=== PATIENT | male | born 1955 | race Caucasian/White ===

== ENCOUNTER 2019-09-18 07:36 | Outpatient (RCR) | payer MEDICARE, SELFPAY ==
[2019-06-29 10:01] LABS: INR 3.6
[2019-07-12 11:17] LABS: INR 3.6; Prothrombin Time 37.7 Seconds (9.64-11.0)
[2019-07-25 11:32] LABS: INR 3.4
[2019-08-04 11:49] LABS: INR 3.5; Prothrombin Time 36.3 Seconds (9.64-11.0)
[2019-08-14 08:51] LABS: INR 3.5; Prothrombin Time 36.7 Seconds (9.64-11.0)
== END 2019-09-27 23:59 | disposition home or self-care (01) ==
LOC: CHSLAB 07:36
PROVIDERS: PCP Family Medicine; Visit Provider Family Medicine
DX: Z79.01 Long term (current) use of anticoagulants (principal)
CPT/HCPCS: 36415; 71260; 80048; 80053; 80061; 82043; 82565; 83036; 84153; 85610; 94060; 94726; 94729; Q9965

== ENCOUNTER 2019-12-11 10:05 | Outpatient (CLI) | payer MEDICARE, SELFPAY ==
[2019-12-11 10:33] LABS: Hemoglobin A1C 7.1 % (<5.7)
[2019-12-11 10:37] LABS: INR 4.7; Prothrombin Time 46.2 Seconds (9.64-11.0)
[2019-12-11 10:59] LABS: Anion Gap 14.2 mmol/L (7-16); Blood Urea Nitrogen 42 mg/dL (7-18); Calcium 9.6 mg/dL (8.5-10.1); Carbon Dioxide 29 mmol/L (21-32); Chloride 102 mmol/L (98-108); Estimated Glomerular Filt Rate 40; Glucose 125 mg/dL (70-99); Osmolality Calculated 303 mOsm/kg (285-295); Potassium 4.2 mmol/L (3.5-5.1); Sodium 141 mmol/L (136-145)
== END 2019-12-11 10:06 | disposition home or self-care (01) ==
LOC: CHSLAB 10:08
PROVIDERS: PCP Family Medicine; Visit Provider Physician Assistant
DX: I48.20 Chronic atrial fibrillation, unspecified (principal); E11.9 Type 2 diabetes mellitus without complications
CPT/HCPCS: 36415; 80048; 83036; 85610

== ENCOUNTER 2019-12-27 08:50 | Outpatient (RCR) | payer MEDICARE, SELFPAY ==
[2019-10-04 12:17] LABS: INR 3.4
[2019-11-07 09:46] LABS: INR 2.9; Prothrombin Time 28.6 Seconds (9.64-11.0)
[2019-12-14 10:50] LABS: INR 3.8; Prothrombin Time 37.6 Seconds (9.64-11.0)
[2019-12-18 10:08] LABS: INR 2.7; Prothrombin Time 27.4 Seconds (9.64-11.0)
[2019-12-27 09:12] LABS: INR 3.5; Prothrombin Time 34.4 Seconds (9.64-11.0)
== END 2020-01-02 23:59 | disposition home or self-care (01) ==
LOC: CHSLAB 08:50
PROVIDERS: PCP Family Medicine; Visit Provider Family Medicine
DX: I48.20 Chronic atrial fibrillation, unspecified (principal)
CPT/HCPCS: 36415; 85610

== ENCOUNTER 2020-02-06 09:53 | Outpatient (RCR) | payer MEDICARE, OTHER, SELFPAY ==
--- NOTE | 2020-02-06 11:03 | PTOPEVAL ---
Thank you for referring Mendez Lay to [facility]. Please review, sign, date and return this plan of care RACHELE. I agree with and certify that the following plan of care is medically necessary. Referring Physician Date Admitting Provider: Attending Provider: PHYSICIAN NOT ON STAFF Referring Provider: *PT Outpatient Evaluation Start: 02/06/20 10:03 Freq: Status: Active Protocol: Document 02/06/20 10:05 [facility] (Rec: 02/06/20 10:42 [facility] [id number]) Therapy Assessment Status Assessment Status Assessment Status Evaluation Evaluation Information Problem Diagnosis generalized weakness of the LE 's. Onset 01/31/20 Additional Evaluation Detail LEFS = 83% functionally declined Subjective Information patient reports he struggling Query Text:As Reported By Patient/ more and more daily with his Family ADL's. he reports he has noticed increased difficulty getting up from a chair, walking, and going up and down steps. he reports if there is no rail on the steps he is unabel to go up them. he reports he did fall about 2 weeks ago. he reports he tripped over an object on the floor. he reports he was unable to pull himself back up from the floor and had to call for help. Prior Level of Function Comments Additional Prior Level of Function patient reports he has had Comments weakness for years, but has noticed increased symptoms in the past year. 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 he reports he is also having some pain in the neck (about 2 months). he reports he is sleeping in a chair due to difficulty breathing. Pain Assessment Timing of Pain Assessment Timing of Pain Assessment Assessment Pain Scale Pain Scale Used Numeric (1 - 10) Self Report Pain Assessment Neck Reported Pain Level 4 Lowest Pain Intensity 2 Greatest Pain Intensity 9 Pain Aggravating Factors Changing Position Pain Score Pain Score
--- NOTE | 2020-03-06 08:52 | PCPTNOTE ---
patient cancelled appt today. PRISCILLA
== END 2020-03-15 10:47 | disposition home or self-care (01) ==
LOC: CHSPT 09:53
PROVIDERS: PCP Family Medicine; Visit Provider Family Medicine
DX: R29.898 Other symptoms and signs involving the musculoskeletal system (principal)
CPT/HCPCS: 36415; 85610; 97014; 97110; 97112; 97161; 97530; G0283

== ENCOUNTER 2020-03-26 09:14 | Outpatient (RCR) | payer MEDICARE, SELFPAY ==
[2020-01-05 09:30] LABS: INR 3.7; Prothrombin Time 36.1 Seconds (9.64-11.0)
[2020-01-11 09:33] LABS: INR 3.4; Prothrombin Time 33.3 Seconds (9.64-11.0)
[2020-01-18 09:35] LABS: INR 3.6; Prothrombin Time 35.4 Seconds (9.64-11.0)
[2020-01-23 09:26] LABS: INR 3.4; Prothrombin Time 33.5 Seconds (9.64-11.0)
[2020-02-06 09:35] LABS: INR 4.4; Prothrombin Time 43.2 Seconds (9.64-11.0)
[2020-02-12 09:08] LABS: INR 2.2; Prothrombin Time 21.8 Seconds (9.64-11.0)
[2020-02-19 09:23] LABS: INR 2.8; Prothrombin Time 28.3 Seconds (9.64-11.0)
[2020-02-27 09:34] LABS: INR 2.8; Prothrombin Time 27.8 Seconds (9.64-11.0)
[2020-03-08 09:05] LABS: INR 1.1; Prothrombin Time 11.2 Seconds (9.64-11.0)
[2020-03-11 08:39] LABS: INR 1.7; Prothrombin Time 17.4 Seconds (9.64-11.0)
[2020-03-14 10:40] LABS: INR 3.9; Prothrombin Time 38.7 Seconds (9.64-11.0)
[2020-03-19 08:47] LABS: INR 1.8; Prothrombin Time 17.9 Seconds (9.64-11.0)
[2020-03-26 09:33] LABS: INR 2.5; Prothrombin Time 25.4 Seconds (9.64-11.0)
== END 2020-04-04 23:59 | disposition home or self-care (01) ==
LOC: CHSLAB 09:14
PROVIDERS: PCP Family Medicine; Visit Provider Family Medicine
DX: I48.20 Chronic atrial fibrillation, unspecified (principal)
CPT/HCPCS: 36415; 85610

== ENCOUNTER 2020-06-04 12:04 | Outpatient (CLI) | payer MEDICARE, SELFPAY ==
[2020-06-04 12:24] LABS: Basophils Absolute Auto 0.04 K/mm3 (0.00-0.10); Basophils Percent Auto 0.4 % (0.0-1.0); Eosinophils Absolute Auto 0.39 K/mm3 (0.02-0.50); Eosinophils Percent Auto 3.7 % (1.0-6.0); Hematocrit 37.7 % (37.0-46.0); Hemoglobin 12.1 g/dL (12.4-15.3); Immature Granulocyte Absolute 0.04 K/mm3 (0.00-0.00); Immature Granulocyte Percent A 0.4 % (0.0-0.0); Lymphocytes Absolute Auto 1.38 K/mm3 (1.10-4.50); Lymphocytes Percent Auto 12.9 % (18.0-42.0); Mean Corpuscular HGB Conc 32.1 g/dL (32.0-36.0); Mean Corpuscular Hemoglobin 28.7 pg (27.0-31.0); Mean Corpuscular Volume 89.5 fL (78.0-102.0); Monocytes Absolute Auto 1.04 K/mm3 (0.10-0.90); Monocytes Percent Auto 9.7 % (2.0-11.0); Neutrophils Absolute Auto 7.8 K/mm3 (1.7-7.2); Neutrophils Percent Auto 72.9 % (50.0-70.0); Platelet Count Result 225 K/mm3 (150-420); Red Blood Count 4.21 M/mm3 (4.70-6.10); Red Cell Distribution Width 13.8 % (11.6-14.4); White Blood Count 10.7 K/mm3 (4.8-10.8)
[2020-06-04 12:45] LABS: Hemoglobin A1C 6.1 % (<5.7)
[2020-06-04 12:49] LABS: INR 1.6; Prothrombin Time 15.9 Seconds (9.64-11.0)
[2020-06-04 13:24] LABS: Erythrocyte Sedimentation Rate 44 mm/hr (0-20)
[2020-06-04 13:35] LABS: Alanine Aminotransferase 20 U/L (16-63); Alkaline Phosphatase 93 U/L (46-116); Anion Gap 8 mmol/L (8-16); Aspartate Amino Transferase 15 U/L (15-37); Bilirubin,Total 0.5 mg/dL (0.00-1.00); Blood Urea Nitrogen 37 mg/dL (7-18); CRP 0.9 mg/dL (0.0-0.9); Calcium 9.1 mg/dL (8.5-10.1); Carbon Dioxide 30 mmol/L (21-32); Chloride 99 mmol/L (98-108); Estimated Glomerular Filt Rate 37; Folic Acid 7.7 ng/mL (8.6->20); Glucose 117 mg/dL (70-99); Osmolality Calculated 293 mOsm/kg (285-295); Potassium 4.5 mmol/L (3.5-5.1); Sodium 137 mmol/L (136-145); Total Protein 7.9 g/dL (6.4-8.2); Vitamin B12 402 pg/mL (193-986)
[2020-06-04 14:07] LABS: Thyroid Stimulating Hormone Reflex 3.34 u/IU/mL (0.36-3.74)
[2020-06-08 04:33] LABS: Thyroglobulin 11.2 ng/mL (2.8-40.9); Thyroglobulin Antibodies <1 IU/mL (<=1); Thyroid Peroxidase Antibodies <1 IU/mL (<9)
== END 2020-06-04 12:05 | disposition home or self-care (01) ==
LOC: CHSLAB 12:07
PROVIDERS: PCP Family Medicine; Visit Provider Physician Assistant
DX: R53.83 Other fatigue (principal); E11.9 Type 2 diabetes mellitus without complications; I48.91 Unspecified atrial fibrillation
CPT/HCPCS: 36415; 80053; 82607; 82746; 83036; 84432; 84443; 85025; 85610; 85652; 86140; 86376; 86800

== ENCOUNTER 2020-07-03 14:53 | Observation (INO) | payer MEDICARE, OTHER, SELFPAY ==
--- NOTE | ~2020-07-03 | CT_ITS ---
EXAMINATION: CT brain wo con DATE: 07/03/2020 15:30 INDICATION: Confusion. TECHNIQUE: Computed tomography (CT) of the head was performed without intravenous contrast. The mA wa s adjusted according to patient size. Iterative reconstruction technique was employed. The dose-lengt h product was 605.33 mGy-cm. COMPARISON: Neck CT 01/17/2015 FINDINGS: There are scattered areas of low attenuation in the cerebral white matter. There is no intr acranial hemorrhage or acute infarction. 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 There is an old lacunar infarct in the nicholas. There is an old lacunar infarct in left t halamus. The ventricles are normal in size. The paranasal sinuses are clear. The orbits are normal. T he mastoid air cells are normal. There is cerumen in the external auditory canals. IMPRESSION: 1. Old lacunar infarcts in the nichloas and left thalamus. 2. Mild nonspecific cerebral white matter disease, which likely represents chronic small vessel ische albina disease. Reviewed, dictated and finalized at location B. E EVIDENCE TECHNICIAN IMPRESSION: 1. Old lacunar infarcts in the nicholas and left thalamus. 2. Mild nonspecific cerebral white matter disease, which likely represents cloth dyeing range tender hugo small vessel ischemic disease.
--- NOTE | ~2020-07-03 | XR_ITS ---
EXAMINATION: XR chest 1V portable DATE: 07/03/2020 15:30 INDICATION: Dyspnea. TECHNIQUE: A single frontal view of the chest was obtained. COMPARISON: Chest 2 views 07/10/2017, chest CT 09/18/2019 FINDINGS: The chest demonstrates clear lungs without pneumonia, pleural effusion, or pneumothorax. Th e heart size is normal. There are changes of aortic valve replacement. IMPRESSION: 1. No acute cardiopulmonary disease. Reviewed, dictated and finalized at location B. ONAL FLATBED TRUCK DRIVER
[2020-07-03 14:53] VITALS: BP 170/98; PULSE 102; RESP 16; TEMP 36.9; O2SAT 97
[2020-07-03 15:03] LABS: Glucose Point of Care 131 (65-105)
--- NOTE | 2020-07-03 15:07 | ECG_ITS ---
Measurements Intervals [place] Rate: 97 P: NV: 0 QRS: -23 QRSD: 138 T: 139 QT: 382 QTc: 485 Interpretive Statements ATRIAL FIBRILLATION VENTRICULAR PREMATURE COMPLEX LEFT BUNDLE BRANCH BLOCK ABNORMAL ECG Electronically Signed On 07-03-2020 17:20:53 [employer] by Adryan Tong D.O.
[2020-07-03 15:10] VITALS: BP 170/98; PULSE 102; RESP 18; O2SAT 97
[2020-07-03 15:26] LABS: Basophils Absolute Auto 0.05 K/mm3 (0.00-0.10); Basophils Percent Auto 0.5 % (0.0-1.0); Eosinophils Percent Auto 3.8 % (1.0-6.0); Hematocrit 35.8 % (37.0-46.0); Hemoglobin 11.4 g/dL (12.4-15.3); Immature Granulocyte Absolute 0.06 K/mm3 (0.00-0.00); Immature Granulocyte Percent A 0.6 % (0.0-0.0); Lymphocytes Absolute Auto 1.75 K/mm3 (1.10-4.50); Lymphocytes Percent Auto 16.6 % (18.0-42.0); Mean Corpuscular HGB Conc 31.8 g/dL (32.0-36.0); Mean Corpuscular Hemoglobin 28.1 pg (27.0-31.0); Mean Corpuscular Volume 88.2 fL (78.0-102.0); Mean Platelet Volume 9.8 fl (8.7-11.0); Monocytes Absolute Auto 1.28 K/mm3 (0.10-0.90); Monocytes Percent Auto 12.2 % (2.0-11.0); Neutrophils Percent Auto 66.3 % (50.0-70.0); Platelet Count Result 222 K/mm3 (150-420); Red Blood Count 4.06 M/mm3 (4.70-6.10); Red Cell Distribution Width 14.1 % (11.6-14.4); White Blood Count 10.5 K/mm3 (4.8-10.8)
[2020-07-03 15:39] LABS: INR 1.3; Prothrombin Time 13.8 Seconds (9.64-11.0)
[2020-07-03 15:42] LABS: Alanine Aminotransferase 37 U/L (16-63); Albumin Level 3.5 g/dL (3.4-5.0); Alkaline Phosphatase 95 U/L (46-116); Anion Gap 8 mmol/L (8-16); Aspartate Amino Transferase 16 U/L (15-37); Bilirubin,Total 0.7 mg/dL (0.00-1.00); Blood Urea Nitrogen 29 mg/dL (7-18); Calcium 9.3 mg/dL (8.5-10.1); Carbon Dioxide 28 mmol/L (21-32); Chloride 98 mmol/L (98-108); Estimated Glomerular Filt Rate 41; Glucose 145 mg/dL (70-99); Osmolality Calculated 286 mOsm/kg (285-295); Sodium 134 mmol/L (136-145)
[2020-07-03 15:44] LABS: Troponin I < 0.02 ng/mL (0.00-0.056)
[2020-07-03 15:45] LABS: BNP 35.1 pg/mL (0-100)
[2020-07-03 15:46] LABS: Magnesium 2.1 mg/dL (1.8-2.4)
--- NOTE | 2020-07-03 15:54 | PC.NURSE ---
PT STATES HE WAS INSTRUCTED TO STOP TAKING WARFARIN ON 07/01 IN PREPERATION FOR CARDIAC CATHERIZATION SCHEDULED FOR 07/05. ERP INFORMED.
--- NOTE | 2020-07-03 16:06 | ED.AMS ---
HPI - Altered Mental Status General Chief Complaint: Altered Mental Status Stated Complaint: hard to talk, confusion Time Seen by Provider: 07/03/20 14:55 Source: patient and family Mode of arrival: ambulatory Limitations: no limitations History of Present Illness HPI narrative: Daughter brings in patient who had slurred speech when she spoke to him about 1pm. She got to his house at about 1:30pm, and brought him in to be evaluated for a change in mental status. Severity: mild Consistency of symptoms: constant Associated symptoms: denies other symptoms Related Data Home Medications Medication Instructions Recorded Confirmed albuterol sulfate [Ventolin HFA] 2 puff INHALATION Q4-5H PRN 07/03/20 07/03/20 allopurinol 300 mg PO DAILY 07/03/20 07/03/20 amlodipine 2.5 mg PO DAILY 07/03/20 07/03/20 aspirin [Adult Low Dose Aspirin] 81 mg PO DAILY 07/03/20 07/03/20 atorvastatin 80 mg PO HS 07/03/20 07/03/20 carvedilol 12.5 mg PO DAILY 07/03/20 07/03/20 fluticasone propionate 2 spray INTRANASAL DAILY 07/03/20 07/03/20 yslhnnobzzl-eeylmemdq-hicadvqe 1 ea INHALATION DAILY 07/03/20 07/03/20 [Trelegy Ellipta] furosemide 80 mg PO BID 07/03/20 07/03/20 gabapentin 100 mg PO DAILY 07/03/20 07/03/20 gabapentin 300 mg PO HS 07/03/20 07/03/20 glipizide 5 mg PO DAILY 07/03/20 07/03/20 hydrocodone-acetaminophen 1 tablet PO BID PRN 07/03/20 07/03/20 ipratropium-albuterol 3 ml INHALATION QID PRN 07/03/20 07/03/20 losartan 50 mg PO DAILY 07/03/20 07/03/20 melatonin 10 mg PO HS PRN 07/03/20 07/03/20 metformin 500 mg PO BID 07/03/20 07/03/20 pantoprazole 40 mg PO DAILY 07/03/20 07/03/20 potassium chloride 40 meq PO DAILY 07/03/20 07/03/20 sertraline 150 mg PO DAILY 07/03/20 07/03/20 spironolactone 25 mg PO DAILY 07/03/20 07/03/20 trazodone 200 mg PO HS 07/03/20 07/03/20 triamcinolone acetonide 1 applic TOPICAL BID 07/03/20 07/03/20 warfarin 2 mg PO DAILY 07/03/20 07/03/20 warfarin 5 mg PO DAILY 07/03/20 07/03/20 Allergies Allergy/AdvReac Type Severity Reaction Status Date / Time No Known Allergies Allergy Verified 07/03/20 15:39 Review of Systems Review of Systems: Narrative: No weakness, no trouble swallowing, he has chronic mild weakness in legs which appears unchanged. He has had speech which has not been perfectly clear and which at times has not made much sense. Constitutional: Constitutional: Reports no additional constitutional complaints Eyes: Eyes: Reports no additional eye complaints ENT: Reports system reviewed and no additional complaints, except as documented Cardiovascular: Cardiovascular: Reports no additional cardiovascular complaints Respiratory: Respiratory: Reports no additional respiratory complaints Gastrointestinal: Gastrointestinal: Reports no additional gastrointestinal complaints Genitourinary: Genitourinary: Reports no additional male genitourinary complaints Musculoskeletal: Musculoskeletal: Reports no additional musculoskeletal complaints Integumentary/Breasts: Skin/Breast: Reports system reviewed and no additional complaints, except as docu Neurologic: Reports system reviewed and no additional complaints, except as documented Psychiatric: Psychiatric: Reports no additional psychiatric complaints Endocrine: Endocrine: Reports no additional endocrine complaints Hematologic/Lymphatic: Hematologic/Lymphatic: Reports no additional hematologic/lymphatic complaints Allergic/Immunologic: Allergic/Immunologic: Reports no additional allergic/immunologic complaints PMFSH Past Medical History Medical History Afib CAD (coronary artery disease) COPD (chronic obstructive pulmonary disease) Depression Diabetic neuropathy Gout Hyperlipidemia Surgical History Surgical History Cardiac catheterization as the cause of abnormal reaction of the patient, or of later complication, without mention of misadventure at the
--- NOTE | 2020-07-03 16:28 | PC.NURSE ---
SKYLAR KEY, DR. STINSON, CONTACTED AT THIS TIME FOR CONSULTATION
[2020-07-03 16:30] LABS: Erythrocyte Sedimentation Rate 50 mm/hr (0-20)
--- NOTE | 2020-07-03 17:22 | PC.NURSE ---
1710, DR. STINSON CALLED BACK TO ED. RN TRANSFERRED CALL TO ERP DR. RAPP.
--- NOTE | 2020-07-03 17:23 | PC.NURSE ---
1723 PT TO BE TRANSFERRED TO 2ND FLOOR AN OBSERVATION PATIENT. YUNI HARVEY CONTACTED AND ROOM 207 PROVIDED. REGISTRATION NOTIFIED.
--- NOTE | 2020-07-03 17:24 | PC.NURSE ---
RN ENTERED ROOM 2 TO INFORM PT OF OBS ROOM NUMBER. PT IS ON THE PHONE SPEAKING WITH A FAMILY MEMBER, RN NOTICED THAT PATIENT SAID HE WAS IN [facility] AND COULD NOT REMEMBER HIS DAUGHTERS NAME. ERP INFORMED.
[2020-07-03 18:00] VITALS: BP 148/97; PULSE 87; RESP 20; O2SAT 95
[2020-07-03 18:05] VITALS: BP 174/84; PULSE 84; RESP 18; TEMP 36.7; O2SAT 97
[2020-07-03] MEDS: WARFARIN (*PBKC) 2 MG TABLET PO (18:22)
[2020-07-03] MEDS: WARFARIN (*PBKC) 5 MG TABLET PO (18:22)
[2020-07-03] MEDS: ENOXAPARIN 100 MG/ML SYRINGE SUB-Q (19:15)
[2020-07-03] MEDS: ATORVASTATIN 40 MG TABLET 80 MG PO (21:38)
[2020-07-03] MEDS: HYDROcodone/acetaminophen (*CRX) 7.5-325 MG TABLET 1 TAB PO (21:38)
[2020-07-03] MEDS: MELATONIN 5 MG TABLET 10 MG PO (21:38)
[2020-07-03] MEDS: GABAPENTIN 300 MG CAPSULE PO (21:38)
[2020-07-03] MEDS: traZODone HCL 50 MG TABLET 200 MG PO (21:58)
[2020-07-03 22:46] LABS: Add Urine Microscopic? NO; Appearance Urine Clear (Clear); Bilirubin Urine Negative (Negative); Blood Urine Negative (Negative); Color Urine Yellow (Yellow); Glucose Urine UA Negative (Negative); Ketones Urine Negative (Negative); Leukocyte Esterase Ur Negative (Negative); Nitrate Urine Negative (Negative); Protein Urine Negative (Negative); Urobilinogen Urine 0.2 mg/dL (0.2-1.0); pH Urine 6.5 (5.0-8.0)
--- NOTE | 2020-07-03 22:56 | PC.NURSE ---
1800 here from with c/o not able to get words out , he is upset that he can speak clearly to get words out, they do not fit what he is saying or they sound jumbled. hand computer information systems instructor are equal and gait steady. alex eyes are perrila. lungs cta. a fib on tele. oriented to room and call light use. abd sound and bs present. no pedal edema. anna simental 1929 daughter here to drop off personal items. claims father speech seems more jumbled and harder for him to get thoughts exspressed. patient is upset with self. on floor and talk with them. they both are ok in remaining here at this time. gait remains steady. no neuro changes. anna simental 2129 remains up and down in room. gait steady. stand by assist. able to carry on conversation with longer span between word salad. still upset that words are to come at times. no dior changes. c/o of head ache and prn pain meds given anna simental
[2020-07-04] VITALS: BP 142/89; PULSE 68; PULSE 70; RESP 16; TEMP 36.3; O2SAT 95
--- NOTE | 2020-07-04 00:40 | PC.NURSE ---
Patient states that he is unable to sleep. He is ambulating around room, his gait is steady. He asked for Trazodone to help him sleep, senior medical writer explained to him that he had already had it with HS medications. Patient is reporting that he still feels like he is having difficulty with expressing himself verbally. At this time his speech is clear and he seems to converse easily with senior medical writer.
[2020-07-04 04:00] VITALS: BP 135/67; PULSE 56; PULSE 63; RESP 18; TEMP 36.2; O2SAT 95
[2020-07-04 05:43] LABS: Basophils Absolute Auto 0.04 K/mm3 (0.00-0.10); Basophils Percent Auto 0.4 % (0.0-1.0); Eosinophils Absolute Auto 0.49 K/mm3 (0.02-0.50); Eosinophils Percent Auto 5.5 % (1.0-6.0); Hematocrit 34.1 % (37.0-46.0); Hemoglobin 10.6 g/dL (12.4-15.3); Immature Granulocyte Absolute 0.03 K/mm3 (0.00-0.00); Immature Granulocyte Percent A 0.3 % (0.0-0.0); Lymphocytes Absolute Auto 2.09 K/mm3 (1.10-4.50); Lymphocytes Percent Auto 23.3 % (18.0-42.0); Mean Corpuscular HGB Conc 31.1 g/dL (32.0-36.0); Mean Corpuscular Hemoglobin 27.8 pg (27.0-31.0); Mean Corpuscular Volume 89.5 fL (78.0-102.0); Mean Platelet Volume 9.6 fl (8.7-11.0); Monocytes Percent Auto 11.1 % (2.0-11.0); Neutrophils Absolute Auto 5.3 K/mm3 (1.7-7.2); Neutrophils Percent Auto 59.4 % (50.0-70.0); Platelet Count Result 195 K/mm3 (150-420); Red Blood Count 3.81 M/mm3 (4.70-6.10)
[2020-07-04 07:30] VITALS: BP 150/88; PULSE 68; RESP 18; TEMP 36.1; O2SAT 97
--- NOTE | 2020-07-04 07:59 | PC.NURSE ---
Sitting on edge of bed for breakfast, feeling good, wants to go home
[2020-07-04] MEDS: FUROSEMIDE 40 MG TABLET 80 MG PO (09:12)
[2020-07-04] MEDS: SPIRONOLACTONE 25 MG TABLET PO (09:12)
[2020-07-04] MEDS: ENOXAPARIN 100 MG/ML SYRINGE SUB-Q (09:12)
[2020-07-04] MEDS: ASPIRIN 81 MG CHEWABLE TABLET PO (09:13)
[2020-07-04] MEDS: POTASSIUM CHLORIDE 20 MEQ TABLET 40 MEQ PO (09:13)
[2020-07-04] MEDS: GABAPENTIN 100 MG CAPSULE PO (09:13)
[2020-07-04 09:14] VITALS: PULSE 68
[2020-07-04] MEDS: PANTOPRAZOLE 40 MG TABLET PO (09:14)
[2020-07-04] MEDS: LOSARTAN POTASSIUM 50 MG TABLET PO (09:14)
[2020-07-04] MEDS: carvediloL 12.5 MG TABLET PO (09:14)
[2020-07-04] MEDS: SERTRALINE HCL 50 MG TABLET 150 MG PO (09:15)
[2020-07-04] MEDS: amLODIPine BESYLATE 5 MG TABLET 2.5 MG BY MOUTH (09:15)
--- NOTE | 2020-07-04 10:42 | PC.NURSE ---
Up in chair, showered and shaved self with direct observation, did well, denies needs, up independent to bathroom, voiding well
--- NOTE | 2020-07-04 11:44 | PM.SD ---
Same Day Admit/Disch: HPI History of Present Illness Chief complaint: TIA Narrative: Mendez Lay is a 64 year old male who presented to the hospital after having slurred speech. Patient states that he was having difficulty communicating not only verbally but also when he was trying to text daughter on the phone. Patient states that he did not feel weak on one side or the other. He does admit that he recalls looking in the distance with the sensation that he could not see everything out of his right eye. He states this has since resolved. Patient states he was off of his Coumadin for about 2 or 3 days as he was going to have a cardiac catheterization performed. I spoke with the daughter this morning and she stated that the patient sounded like he was back to his normal self. In patient states he feels like he is back to his normal self. [facility] Past Medical History Medical History Afib CAD (coronary artery disease) COPD (chronic obstructive pulmonary disease) Depression Diabetic neuropathy Gout Hyperlipidemia Surgical History Surgical History Cardiac catheterization as the cause of abnormal reaction of the patient, or of later complication, without mention of misadventure at the time of the procedure Social History Social History Smoking status: Former smoker Smoking end date: 09/02/1967 Drinks per week: 1 Substance use: former Substance use type: does not use Gender identity (if verbalized by the patient): Male Sexual Orientation (if Verbalized by the Patient): Straight or Heterosexual Spiritual care concerns: No Same Day Admit/Disch: Med Pre-admit Medications Home Medications Medication Instructions Recorded Confirmed Type albuterol sulfate [Ventolin HFA] 2 puff INHALATION Q4-5H PRN 07/03/20 07/03/20 History allopurinol 300 mg PO DAILY 07/03/20 07/03/20 History amlodipine 2.5 mg PO DAILY 07/03/20 07/03/20 History aspirin [Adult Low Dose Aspirin] 81 mg PO DAILY 07/03/20 07/03/20 History atorvastatin 80 mg PO HS 07/03/20 07/03/20 History carvedilol 12.5 mg PO DAILY 07/03/20 07/03/20 History fluticasone propionate 2 spray INTRANASAL DAILY 07/03/20 07/03/20 History ktzrpbxzcoz-cewcuwmcd-yirncdma 1 ea INHALATION DAILY 07/03/20 07/03/20 History [Trelegy Ellipta] furosemide 80 mg PO BID 07/03/20 07/03/20 History gabapentin 100 mg PO DAILY 07/03/20 07/03/20 History gabapentin 300 mg PO HS 07/03/20 07/03/20 History glipizide 5 mg PO DAILY 07/03/20 07/03/20 History hydrocodone-acetaminophen 1 tablet PO BID PRN 07/03/20 07/03/20 History ipratropium-albuterol 3 ml INHALATION QID PRN 07/03/20 07/03/20 History losartan 50 mg PO DAILY 07/03/20 07/03/20 History melatonin 10 mg PO HS PRN 07/03/20 07/03/20 History metformin 500 mg PO BID 07/03/20 07/03/20 History pantoprazole 40 mg PO DAILY 07/03/20 07/03/20 History potassium chloride 40 meq PO DAILY 07/03/20 07/03/20 History sertraline 150 mg PO DAILY 07/03/20 07/03/20 History spironolactone 25 mg PO DAILY 07/03/20 07/03/20 History trazodone 200 mg PO HS 07/03/20 07/03/20 History triamcinolone acetonide 1 applic TOPICAL BID 07/03/20 07/03/20 History warfarin 2 mg PO DAILY 07/03/20 07/03/20 History warfarin 5 mg PO DAILY 07/03/20 07/03/20 History enoxaparin [Lovenox] 100 mg SUBCUT Q12HR #5 vial 07/04/20 Rx Exam Const: General: cooperative, comfortable, no acute distress, alert, awake and Physically active Nutritional Appearance: overweight Eyes: General: appearance normal, both eyes and all related structures Visual Marroquin: normal visual marroquin by confrontation Alignment and Position: alignment normal Eyelids: eyelids normal Conjunctivae: conjunctivae normal Sclera: sclerae normal Pupils: Equal, round and reactive pupils present EOM: EOMs intact bilaterally Resp: Effort & Inspection: normal r
[2020-07-04 12:00] VITALS: PULSE 60; RESP 18; TEMP 36.1; O2SAT 95
--- NOTE | 2020-07-04 12:09 | PC.NURSE ---
Sitting in chair for lunch, denies needs. able to feed self, fine motor doing good today, no speech issues today, feeling much better,
--- NOTE | 2020-07-04 14:18 | PC.NURSE ---
Discharge to home via wheel chair, patient has someone to help with lovenox injections at home, no questions upon dc orders that were reviewed with daughter and patient, advised to call number provided for any questions once home, saline lock removed and to watch for signs of infection,
--- NOTE | 2020-07-05 14:22 | PC.NURSE ---
Pt states he received and understood his discharge instructions.
== END 2020-07-04 14:05 | disposition home or self-care (01) ==
LOC: CHSED 14:55 → CHS2ND 17:43
PROVIDERS: Admitting Provider Emergency Medicine; Emergency Provider Emergency Medicine; PCP Family Medicine; Visit Provider Emergency Medicine
DX: I97.89 Other postprocedural complications and disorders of the circulatory system, not elsewhere classified (principal); G45.9 Transient cerebral ischemic attack, unspecified; Z98.61 Coronary angioplasty status; I48.20 Chronic atrial fibrillation, unspecified; Z79.01 Long term (current) use of anticoagulants; I25.10 Atherosclerotic heart disease of native coronary artery without angina pectoris; F32.9 Major depressive disorder, single episode, unspecified; E11.40 Type 2 diabetes mellitus with diabetic neuropathy, unspecified; E78.5 Hyperlipidemia, unspecified; M10.9 Gout, unspecified; Z87.891 Personal history of nicotine dependence
CPT/HCPCS: 36415; 70450; 71045; 80053; 81003; 83735; 83880; 84484; 85025; 85610; 85652; 93005; 96372; 99285; A9270; G0378; J1650

== ENCOUNTER 2020-07-09 08:41 | Outpatient (RCR) | payer MEDICARE, SELFPAY ==
[2020-04-10 08:19] LABS: INR 2.2; Prothrombin Time 22.4 Seconds (9.64-11.0)
[2020-06-12 12:45] LABS: INR 2.3; Prothrombin Time 23.4 Seconds (9.64-11.0)
[2020-06-19 07:45] LABS: INR 2.2; Prothrombin Time 21.8 Seconds (9.64-11.0)
[2020-07-09 09:06] LABS: INR 2.1; Prothrombin Time 21.2 Seconds (9.64-11.0)
== END 2020-07-09 23:59 | disposition home or self-care (01) ==
LOC: CHSLAB 08:41
PROVIDERS: PCP Family Medicine; Visit Provider Family Medicine
DX: I48.91 Unspecified atrial fibrillation (principal)
CPT/HCPCS: 36415; 85610

== ENCOUNTER 2020-07-12 09:59 | Outpatient (RCR) | payer MEDICARE, OTHER, SELFPAY ==
--- NOTE | 2020-07-12 10:41 | PTOPEVAL ---
Thank you for referring Mendez Lay to [facility].? The patient is scheduled to be seen for therapy? ____x/week for ___ weeks. Please review, sign, date and return this plan of care RACHELE. I agree with and certify that the following plan of care is medically necessary. Referring Physician Date Admitting Provider: Attending Provider: Jacquie Martel, JANET Referring Provider: *PT Outpatient Evaluation Start: 07/12/20 10:02 Freq: Status: Active Protocol: Document 07/12/20 10:00 [facility] (Rec: 07/12/20 10:41 [facility] [id number]) Therapy Assessment Status Assessment Status Assessment Status Evaluation Outpatient Past Medical History Neurological History Hx Neurological Disorders No Significant History Cardiovascular History Hx Other Cardiac Disorders Yes Respiratory History Hx Respiratory Disorders No Significant History Gastrointestinal History Hx Gastrointestinal Disorders No Significant History Genitourinary History Hx Genitourinary Disorders No Significant History Musculoskeletal History Hx Musculoskeletal Disorders No Significant History Hematological History Hx Hematological Disorders No Significant History Endocrine History Hx Diabetes Yes HEENT History Hx HEENT Disorders No Significant History Integumentary History Hx Skin Disorders No Significant History Reproductive History Hx Reproductive Disorders No Significant History Psychosocial History Hx Psychiatric Disorders No Significant History Pain History History of Any Previous or Ongoing No Significant History Instance of Pain Anesthesia History Hx Anesthesia Reactions No Significant History Evaluation Information Problem Diagnosis acute CVA Onset 07/03/20 Subjective Information patient reports he had a TIA Query Text:As Reported By Patient/ on 07/03/20. he reports his Family daughter had noticed some deficits in his speech and a bit of weakness in his R arm compared to his L arm. he reports he is getting better. he reports he does not notice much difference in his legs. Prior Level of Function Comments Additional Prior Level of Function patient reports prior to his Comments CVa, he did have some issues with the bilateral shoulders. he reports he has tearing in the shoulders. Pain Assessment Timing of Pain Assessment Timing of Pain Assessment Assessment Pain Scale Pain Scale Used Numeric (1 - 10) Self Report Pain Assessment Right Shoulder(s) Reported Pain
--- NOTE | 2020-07-12 10:52 | PTOPEVAL ---
Thank you for referring Mendez Lay to [facility].? The patient is scheduled to be seen for therapy? ____x/week for ___ weeks. Please review, sign, date and return this plan of care RACHELE. I agree with and certify that the following plan of care is medically necessary. Referring Physician Date Admitting Provider: Attending Provider: Jacquie Martel, JANET Referring Provider: *PT Outpatient Evaluation Start: 07/12/20 10:02 Freq: Status: Active Protocol: Document 07/12/20 10:00 [facility] (Rec: 07/12/20 10:41 [facility] [id number]) Therapy Assessment Status Assessment Status Assessment Status Evaluation Outpatient Past Medical History Neurological History Hx Neurological Disorders No Significant History Cardiovascular History Hx Other Cardiac Disorders Yes Respiratory History Hx Respiratory Disorders No Significant History Gastrointestinal History Hx Gastrointestinal Disorders No Significant History Genitourinary History Hx Genitourinary Disorders No Significant History Musculoskeletal History Hx Musculoskeletal Disorders No Significant History Hematological History Hx Hematological Disorders No Significant History Endocrine History Hx Diabetes Yes HEENT History Hx HEENT Disorders No Significant History Integumentary History Hx Skin Disorders No Significant History Reproductive History Hx Reproductive Disorders No Significant History Psychosocial History Hx Psychiatric Disorders No Significant History Pain History History of Any Previous or Ongoing No Significant History Instance of Pain Anesthesia History Hx Anesthesia Reactions No Significant History Evaluation Information Problem Diagnosis acute CVA Onset 07/03/20 Subjective Information patient reports he had a TIA Query Text:As Reported By Patient/ on 07/03/20. he reports his Family daughter had noticed some deficits in his speech and a bit of weakness in his R arm compared to his L arm. he reports he is getting better. he reports he does not notice much difference in his legs. Prior Level of Function Comments Additional Prior Level of Function patient reports prior to his Comments CVa, he did have some issues with the bilateral shoulders. he reports he has tearing in the shoulders. Pain Assessment Timing of Pain Assessment Timing of Pain Assessment Assessment Pain Scale Pain Scale Used Numeric (1 - 10) Self Report Pain Assessment Right Shoulder(s) Reported Pain
--- NOTE | 2020-07-12 11:48 | OTOPEVAL ---
Thank you for referring Mendez Lay to [facility].? The patient is scheduled to be seen for therapy? ____x/week for ___ weeks. Please review, sign, date and return this plan of care RACHELE. I agree with and certify that the following plan of care is medically necessary. Referring Physician Date Admitting Provider: Attending Provider: Jacquie Martel, JANET Referring Provider: *OT Outpatient Evaluation Start: 07/12/20 10:43 Freq: Status: Active Protocol: Document 07/12/20 10:43 [facility] (Rec: 07/12/20 11:48 [facility] [id number]) Therapy Assessment Status Assessment Status Assessment Status Evaluation Outpatient Past Medical History Neurological History Hx Neurological Disorders No Significant History Cardiovascular History Hx Other Cardiac Disorders Yes Respiratory History Hx Respiratory Disorders No Significant History Gastrointestinal History Hx Gastrointestinal Disorders No Significant History Genitourinary History Hx Genitourinary Disorders No Significant History Musculoskeletal History Hx Musculoskeletal Disorders No Significant History Hematological History Hx Hematological Disorders No Significant History Endocrine History Hx Diabetes Yes HEENT History Hx HEENT Disorders No Significant History Integumentary History Hx Skin Disorders No Significant History Reproductive History Hx Reproductive Disorders No Significant History Psychosocial History Hx Psychiatric Disorders No Significant History Pain History History of Any Previous or Ongoing No Significant History Instance of Pain Anesthesia History Hx Anesthesia Reactions No Significant History Evaluation Information Problem Diagnosis weakness Onset 07/03/20 Cause CVA Subjective Information Patient arrives to OT and Query Text:As Reported By Patient/ reports that he had a mini- Family stroke (TIA) on 07/03/20 and stayed overnight at the hospital and then returned home. Patient reports increased fatigue and dizziness since the stroke as well as difficulty with speech and mild weakness in the right UE. Patient reports mild memory loss as well. Prior Level of Function Activity Level (Last 3 Months) Hand Dominance Right Activity of Daily Living Ability Independent Indoor/Home Mobility Independent Community Mobility Independent Stairs Ability Independent Functional Cognition (Planning, Shopping Independent
--- NOTE | 2020-07-12 11:52 | OTOPEVAL ---
Thank you for referring Mendez Lay to [facility] [place].? The patient is scheduled to be seen for therapy? ____x/week for ___ weeks. Please review, sign, date and return this plan of care RACHELE. I agree with and certify that the following plan of care is medically necessary. Referring Physician Date Admitting Provider: Attending Provider: Jacquie Martel, JANET Referring Provider: *OT Outpatient Evaluation Start: 07/12/20 10:43 Freq: Status: Active Protocol: Document 07/12/20 10:43 [facility] (Rec: 07/12/20 11:48 [facility] [id number]) Therapy Assessment Status Assessment Status Assessment Status Evaluation Outpatient Past Medical History Neurological History Hx Neurological Disorders No Significant History Cardiovascular History Hx Other Cardiac Disorders Yes Respiratory History Hx Respiratory Disorders No Significant History Gastrointestinal History Hx Gastrointestinal Disorders No Significant History Genitourinary History Hx Genitourinary Disorders No Significant History Musculoskeletal History Hx Musculoskeletal Disorders No Significant History Hematological History Hx Hematological Disorders No Significant History Endocrine History Hx Diabetes Yes HEENT History Hx HEENT Disorders No Significant History Integumentary History Hx Skin Disorders No Significant History Reproductive History Hx Reproductive Disorders No Significant History Psychosocial History Hx Psychiatric Disorders No Significant History Pain History History of Any Previous or Ongoing No Significant History Instance of Pain Anesthesia History Hx Anesthesia Reactions No Significant History Evaluation Information Problem Diagnosis weakness Onset 07/03/20 Cause CVA Subjective Information Patient arrives to OT and Query Text:As Reported By Patient/ reports that he had a mini- Family stroke (TIA) on 07/03/20 and stayed overnight at the hospital and then returned home. Patient reports increased fatigue and dizziness since the stroke as well as difficulty with speech and mild weakness in the right UE. Patient reports mild memory loss as well. Prior Level of Function Activity Level (Last 3 Months) Hand Dominance Right Activity of Daily Living Ability Independent Indoor/Home Mobility Independent Community Mobility Independent Stairs Ability Independent Functional Cognition (Planning, Shopping Independent
--- NOTE | 2020-07-17 14:13 | PCPTNOTE ---
patient called and cancelled appt today due to being exposed to covid. PRISCILLA
== END 2020-08-13 13:45 | disposition home or self-care (01) ==
LOC: CHSPT 09:59
PROVIDERS: Visit Provider Physician Assistant
DX: R53.1 Weakness (principal); Z09 Encounter for follow-up examination after completed treatment for conditions other than malignant neoplasm; I63.9 Cerebral infarction, unspecified
CPT/HCPCS: 97110; 97112; 97161; 97165; 97530

== ENCOUNTER 2020-10-18 09:17 | Outpatient (RCR) | payer MEDICARE, SELFPAY ==
[2020-08-30 09:32] LABS: INR 3.1; Prothrombin Time 31.9 Seconds (9.50-12.10)
[2020-09-13 08:57] LABS: INR 1.3
[2020-09-16 08:30] LABS: Prothrombin Time 21.6 Seconds (9.50-12.10)
[2020-09-19 13:20] LABS: Prothrombin Time 21.1 Seconds (9.50-12.10)
[2020-09-30 08:44] LABS: Prothrombin Time 39.8 Seconds (9.50-12.10)
[2020-10-18 09:41] LABS: INR 3.5; Prothrombin Time 35.4 Seconds (9.50-12.10)
== END 2020-11-28 23:59 | disposition home or self-care (01) ==
LOC: CHSLAB 09:17
PROVIDERS: PCP Family Medicine; Visit Provider Physician Assistant
DX: I48.91 Unspecified atrial fibrillation (principal); Z79.899 Other long term (current) drug therapy
CPT/HCPCS: 36415; 85610

== ENCOUNTER 2021-05-21 14:04 | Outpatient (CLI) | payer MEDICARE, SELFPAY | END 2021-05-21 14:05 | disposition home or self-care (01) | LOC: CHSLAB 06-03 14:08 | PROVIDERS: PCP Family Medicine; Visit Provider Physician Assistant | DX: E78.2 Mixed hyperlipidemia (principal); E11.9 Type 2 diabetes mellitus without complications | CPT/HCPCS: 99199 ==

== ENCOUNTER 2021-06-26 12:34 | Outpatient (CLI) | payer MEDICARE, SELFPAY ==
[2021-06-26 12:56] LABS: Basophils Absolute Auto 0.06 K/mm3 (0.00-0.10); Basophils Percent Auto 0.6 % (0.0-1.0); Eosinophils Absolute Auto 0.38 K/mm3 (0.02-0.50); Hematocrit 38.5 % (37.0-46.0); Hemoglobin 12.1 g/dL (12.4-15.3); Immature Granulocyte Absolute 0.03 K/mm3 (0.00-0.00); Immature Granulocyte Percent A 0.3 % (0.0-0.0); Lymphocytes Percent Auto 20.1 % (18.0-42.0); Mean Corpuscular HGB Conc 31.4 g/dL (32.0-36.0); Mean Corpuscular Volume 85.9 fL (78.0-102.0); Mean Platelet Volume 9.8 fl (8.7-11.0); Monocytes Absolute Auto 1.04 K/mm3 (0.10-0.90); Platelet Count Result 202 K/mm3 (150-420); Red Blood Count 4.48 M/mm3 (4.70-6.10); Red Cell Distribution Width 14.8 % (11.6-14.4); White Blood Count 9.4 K/mm3 (4.8-10.8)
[2021-06-26 13:10] LABS: INR 3.3
== END 2021-06-26 12:35 | disposition home or self-care (01) ==
LOC: CHSLAB 12:36
PROVIDERS: PCP Family Medicine; Visit Provider Physician Assistant
DX: I48.91 Unspecified atrial fibrillation (principal); I10 Essential (primary) hypertension
CPT/HCPCS: 36415; 85025; 85610

== ENCOUNTER 2021-07-16 10:00 | Outpatient (RCR) | payer MEDICARE, OTHER, SELFPAY ==
[2021-05-21 14:08] LABS: INR 3.5; Prothrombin Time 35.3 Seconds (9.50-12.10)
[2021-05-21 14:24] LABS: Hemoglobin A1C 8.1 % (<5.7)
[2021-05-21 14:47] LABS: Anion Gap 10 mmol/L (8-16); Blood Urea Nitrogen 23 mg/dL (7-18); Calcium 8.8 mg/dL (8.5-10.1); Carbon Dioxide 26 mmol/L (21-32); Chloride 100 mmol/L (98-108); Cholesterol 167 mg/dL (0-200); Estimated Glomerular Filt Rate 48; Glucose 241 mg/dL (70-99); HDL Direct 66 mg/dL (40-60); LDL Cholesterol Calculated 72 mg/dL (<130); Osmolality Calculated 293 mOsm/kg (285-295); Potassium 4.8 mmol/L (3.5-5.1); Sodium 136 mmol/L (136-145); Triglycerides 147 mg/dL (0-150)
== END 2021-07-16 23:59 | disposition home or self-care (01) ==
LOC: CHSSENLIFE 10:00
PROVIDERS: PCP Family Medicine; Visit Provider Psychiatry & Neurology Psychiatry
DX: F33.2 Major depressive disorder, recurrent severe without psychotic features (principal); E78.2 Mixed hyperlipidemia; E11.9 Type 2 diabetes mellitus without complications; I48.91 Unspecified atrial fibrillation
CPT/HCPCS: 36415; 80048; 80061; 83036; 85610; 90792; 90853; 99213; G0463

== ENCOUNTER 2021-08-14 10:00 | Outpatient (RCR) | payer MEDICARE, OTHER, SELFPAY | END 2021-08-25 10:30 | disposition home or self-care (01) | LOC: CHSSENLIFE 10:00 | PROVIDERS: PCP Family Medicine; Visit Provider Psychiatry & Neurology Psychiatry | DX: F33.2 Major depressive disorder, recurrent severe without psychotic features (principal) | CPT/HCPCS: 90853; 99213; G0463 ==

== ENCOUNTER 2021-08-19 14:14 | Outpatient (CLI) | payer MEDICARE, OTHER, SELFPAY ==
--- NOTE | ~2021-08-19 | CT_ITS ---
EXAMINATION: CT brain wo con DATE: 08/19/2021 14:42 INDICATION: Head injury. Headache. TECHNIQUE: Computed tomography (CT) of the head was performed without intravenous contrast. The mA wa s adjusted according to patient size. Iterative reconstruction technique was employed. The dose-lengt h product was 605.33 mGy-cm. COMPARISON: Head CT 07/03/2020 FINDINGS: There is an old infarct involving left temporal lobe and left insula. There are scattered a reas of low attenuation in the cerebral white matter. There is an old infarct in left thalamus. There is no intracranial hemorrhage, acute infarction, or abnormal intracranial mass lesion. The ventricle s are normal in size. The paranasal sinuses are clear. The orbits are normal. The mastoid air cells a re normal. IMPRESSION: 1. 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 2. Stable mild nonspecific cerebral white matter disease, which likely represents chronic small vesse l ischemic disease. Reviewed, dictated and finalized at location B. 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 Old infarcts involving the left thalamus, left temporal lobe, and left insul a. 2. Stable mild nonspecific cerebral white matter disease, which likely represen ts chronic small vessel ischemic disease.
== END 2021-08-19 14:15 | disposition home or self-care (01) ==
LOC: CHSIMG 14:15
PROVIDERS: PCP Family Medicine; Visit Provider Family Medicine
DX: S09.90XA Unspecified injury of head, initial encounter (principal)
CPT/HCPCS: 70450

== ENCOUNTER 2021-09-05 09:40 | Outpatient (CLI) | payer MEDICARE, SELFPAY ==
[2021-09-05 10:05] LABS: Hemoglobin A1C 7.8 % (<5.7)
[2021-09-05 10:15] LABS: Prothrombin Time 66.7 Seconds (9.50-12.10)
[2021-09-05 10:21] LABS: INR 6.8
[2021-09-05 11:16] LABS: Anion Gap 10 mmol/L (8-16); Blood Urea Nitrogen 31 mg/dL (7-18); Calcium 9.6 mg/dL (8.5-10.1); Carbon Dioxide 29 mmol/L (21-32); Chloride 102 mmol/L (98-108); Estimated Glomerular Filt Rate 45; Glucose 173 mg/dL (70-99); Osmolality Calculated 302 mOsm/kg (285-295); Sodium 141 mmol/L (136-145)
== END 2021-09-05 09:41 | disposition home or self-care (01) ==
LOC: CHSLAB 09:42
PROVIDERS: PCP Family Medicine; Visit Provider Physician Assistant
DX: I48.91 Unspecified atrial fibrillation (principal); E78.2 Mixed hyperlipidemia; E11.9 Type 2 diabetes mellitus without complications
CPT/HCPCS: 36415; 80048; 83036; 85610

== ENCOUNTER 2021-10-09 10:45 | Outpatient (RCR) | payer MEDICARE, SELFPAY ==
[2021-09-10 10:47] LABS: INR 2.9
== END 2021-12-09 23:59 | disposition home or self-care (01) ==
LOC: CHSLAB 10:45
PROVIDERS: PCP Family Medicine; Visit Provider Family Medicine
DX: I48.91 Unspecified atrial fibrillation (principal)
CPT/HCPCS: 36415; 85610

== ENCOUNTER 2021-11-19 10:07 | Outpatient (CLI) | payer MEDICARE, SELFPAY ==
[2021-11-19 10:35] LABS: Creatinine Urine 53.68 mg/dL (40-278); MALB Creatinine Ratio 31.6 mg/g (0-30)
[2021-11-19 11:16] LABS: Anion Gap 9 mmol/L (8-16); Blood Urea Nitrogen 80 mg/dL (7-18); Calcium 8.9 mg/dL (8.5-10.1); Carbon Dioxide 30 mmol/L (21-32); Chloride 90 mmol/L (98-108); Estimated Glomerular Filt Rate 24; Glucose 172 mg/dL (70-99); Osmolality Calculated 296 mOsm/kg (285-295); Potassium 4.1 mmol/L (3.5-5.1); Sodium 129 mmol/L (136-145)
[2021-11-20 13:40] LABS: NT Pro B Type Natriuretic Pept 431 pg/mL (0-125)
== END 2021-11-19 10:08 | disposition home or self-care (01) ==
LOC: CHSLAB 10:09
PROVIDERS: PCP Family Medicine; Visit Provider Physician Assistant
DX: R79.89 Other specified abnormal findings of blood chemistry (principal); E11.9 Type 2 diabetes mellitus without complications; I50.9 Heart failure, unspecified
CPT/HCPCS: 36415; 80048; 82043; 83880

== ENCOUNTER 2021-11-21 11:00 | Outpatient (CLI) | payer MEDICARE, SELFPAY ==
[2021-11-21 12:10] LABS: Anion Gap 7 mmol/L (8-16); Blood Urea Nitrogen 75 mg/dL (7-18); Calcium 9.2 mg/dL (8.5-10.1); Carbon Dioxide 31 mmol/L (21-32); Chloride 97 mmol/L (98-108); Estimated Glomerular Filt Rate 29; Glucose 260 mg/dL (70-99); Osmolality Calculated 311 mOsm/kg (285-295); Potassium 4.4 mmol/L (3.5-5.1); Sodium 135 mmol/L (136-145)
== END 2021-11-21 11:01 | disposition home or self-care (01) ==
LOC: CHSLAB 11:02
PROVIDERS: PCP Family Medicine; Visit Provider Physician Assistant
DX: R79.89 Other specified abnormal findings of blood chemistry (principal); I50.9 Heart failure, unspecified
CPT/HCPCS: 36415; 80048; 83880

== ENCOUNTER 2021-11-24 09:47 | Outpatient (CLI) | payer MEDICARE, SELFPAY ==
[2021-11-24 10:54] LABS: Anion Gap 11 mmol/L (8-16); Blood Urea Nitrogen 36 mg/dL (7-18); Calcium 9.4 mg/dL (8.5-10.1); Carbon Dioxide 28 mmol/L (21-32); Chloride 100 mmol/L (98-108); Estimated Glomerular Filt Rate 52; Glucose 169 mg/dL (70-99); NT Pro B Type Natriuretic Pept 1570 pg/mL (0-125); Osmolality Calculated 300 mOsm/kg (285-295); Potassium 4.1 mmol/L (3.5-5.1); Sodium 139 mmol/L (136-145)
== END 2021-11-24 09:48 | disposition home or self-care (01) ==
LOC: CHSLAB 09:50
PROVIDERS: PCP Family Medicine; Visit Provider Physician Assistant
DX: R79.89 Other specified abnormal findings of blood chemistry (principal); I50.9 Heart failure, unspecified
CPT/HCPCS: 36415; 80048; 83880

== ENCOUNTER 2021-12-04 10:00 | Outpatient (CLI) | payer MEDICARE, SELFPAY ==
[2021-12-04 11:11] LABS: Anion Gap 8 mmol/L (8-16); Blood Urea Nitrogen 24 mg/dL (7-18); Calcium 8.7 mg/dL (8.5-10.1); Carbon Dioxide 32 mmol/L (21-32); Chloride 103 mmol/L (98-108); Estimated Glomerular Filt Rate 42; Glucose 146 mg/dL (70-99); Osmolality Calculated 303 mOsm/kg (285-295); Potassium 4.3 mmol/L (3.5-5.1); Sodium 143 mmol/L (136-145)
== END 2021-12-04 10:01 | disposition home or self-care (01) ==
LOC: CHSLAB 10:02
PROVIDERS: PCP Family Medicine; Visit Provider Physician Assistant
DX: R79.89 Other specified abnormal findings of blood chemistry (principal)
CPT/HCPCS: 36415; 80048

== ENCOUNTER 2021-12-19 09:46 | Outpatient (CLI) | payer MEDICARE, SELFPAY ==
[2021-12-19 10:17] LABS: Anion Gap 9 mmol/L (8-16); Blood Urea Nitrogen 30 mg/dL (7-18); Calcium 9.1 mg/dL (8.5-10.1); Carbon Dioxide 30 mmol/L (21-32); Chloride 100 mmol/L (98-108); Estimated Glomerular Filt Rate 37; Glucose 206 mg/dL (70-99); Osmolality Calculated 300 mOsm/kg (285-295); Potassium 4.5 mmol/L (3.5-5.1); Sodium 139 mmol/L (136-145)
[2021-12-19 11:27] LABS: NT Pro B Type Natriuretic Pept 1617 pg/mL (0-125)
== END 2021-12-19 09:47 | disposition home or self-care (01) ==
LOC: CHSLAB 09:48
PROVIDERS: PCP Family Medicine; Visit Provider Internal Medicine Cardiovascular Disease
DX: R06.02 Shortness of breath (principal)
CPT/HCPCS: 36415; 80048; 83880

== ENCOUNTER 2022-01-13 09:10 | Outpatient (CLI) | payer MEDICARE, OTHER, SELFPAY ==
--- NOTE | ~2022-01-13 | XR_ITS ---
EXAM: XR knee RT 3V DATE: 01/13/2022 10:07 HISTORY: pain medially in RT knee due to fall 12/28 . COMPARISON: None available. FINDINGS: Decreased mineralization. Right total knee arthroplasty, no perihardware lucency or hardwa re fracture. Intra-articular spacers in good position. Soft tissue anchor in the proximal tibia. No f racture or dislocation. No lytic or blastic lesion. Patellar osteophytosis. No erosion or periosteal change. Small volume joint fluid. After calcifications. IMPRESSION: No acute osseous finding in the right knee. No radiographic evidence of hardware-related complication. Reviewed, dictated and finalized at location K. IMPRESSION: No acute osseous finding in the right knee. No radiographic evidenc e of hardware-related complication.
--- NOTE | ~2022-01-13 | XR_ITS ---
EXAM: XR lumbar spine 2-3V DATE: 01/13/2022 10:08 HISTORY: pain in low back since fall 12/28 . COMPARISON: None available. FINDINGS: 5 nonrib-bearing lumbar-type vertebral bodies. Pedicles intact. Decreased mineralization. Alignment intact. Mild anterior wedge deformity at all lumbar levels. Multilevel disc space narrowing and marginal osteophytosis, most pronounced at L5-S1. Multilevel facet sclerosis. Partially visualiz ed left hip arthroplasty. Vascular calcifications. IMPRESSION: Mild anterior wedge compression deformities at all lumbar levels, may represent acute or chronic mild compression fractures, correlate with pain/tenderness. Reviewed, dictated and finalized at location K. IMPRESSION: Mild anterior wedge compression deformities at all lumbar levels, m ay represent acute or chronic mild compression fractures, correlate with pain/t enderness.
--- NOTE | ~2022-01-13 | XR_ITS ---
EXAMINATION: XR ankle RT min 3V DATE: 01/13/2022 10:08 INDICATION: Right ankle pain. Fall. TECHNIQUE: 3 views of right ankle were obtained. COMPARISON: None. FINDINGS: There is an oblique fracture of distal fibula with medial aspect of the fracture line at th e level of the tibial plafond. The distal fracture fragment demonstrates 2 mm posterolateral displace ment. There is mild midfoot osteoarthritis. There is an enthesophyte at plantar aspect of calcaneal t uberosity. Ankle soft tissue swelling is noted. IMPRESSION: 1. Oblique fracture of distal fibula. Reviewed, dictated and finalized at location A.
== END 2022-01-13 09:11 | disposition home or self-care (01) ==
LOC: CHSIMG 09:13
PROVIDERS: PCP Family Medicine; Visit Provider Physician Assistant
DX: M54.50 Low back pain, unspecified (principal); M25.561 Pain in right knee; M25.571 Pain in right ankle and joints of right foot; S82.831A Other fracture of upper and lower end of right fibula, initial encounter for closed fracture
CPT/HCPCS: 72100; 73562; 73610

== ENCOUNTER 2022-01-31 22:04 | Emergency (ER) | payer MEDICARE, OTHER, SELFPAY ==
--- NOTE | ~2022-01-31 | XR_ITS ---
XR pelvis 1-2V 01/31/2022 23:29 Indication: Multiple falls. Pelvic pain. Procedure: AP pelvis Comparison: 06/16/2016 Findings: There is a left total hip arthroplasty with associated heterotopic ossification. Prosthesis well seated. No acute fractures identified. There is advanced osteoarthritis of the right hip with r emodeling of the femoral head. Osteopenia. Femoral vascular calcifications are present. Sacral forame n are symmetric. No focal soft tissue abnormality. Impression: 1: No acute fracture. Reviewed, dictated and finalized at location A. Impression: 1: No acute fracture.
--- NOTE | ~2022-01-31 | XR_ITS ---
XR chest 1V portable 01/31/2022 23:23 Indication: Multiple falls. Shortness of breath. Procedure: AP portable chest Comparison: Comparison to multiple prior studies sequentially, with oldest reviewed study dated 05/13. Findings: Status post median sternotomy for CABG. Borderline heart size for technique. No focal air s pace disease, pulmonary edema, pleural effusion or suspected pneumothorax. Impression: 1: No acute cardiopulmonary disease. Reviewed, dictated and finalized at location A. Impression: 1: No acute cardiopulmonary disease.
--- NOTE | ~2022-01-31 | XR_ITS ---
XR hand LT min 3V 01/31/2022 23:25 Indication: Left hand pain and swelling Procedure: 3 views left hand Comparison: No prior studies for comparison. Findings: No acute fracture, subluxation or dislocation. There are extensive vascular calcifications. Mild polyarticular osteoarthritis. Carpal bones intact. There are degenerative changes of the trisca phe and first CMC joints. There is a possible healed fracture proximal aspect of the fifth metacarpal . Impression: 1: No acute fracture. Reviewed, dictated and finalized at location A. Impression: 1: No acute fracture.
--- NOTE | ~2022-01-31 | CT_ITS ---
EXAMINATION: CT facial bones wo con DATE: 01/31/2022 23:27 INDICATION: Status post multiple fall with facial abrasions. TECHNIQUE: Computed tomography (CT) of the facial bones was performed without intravenous contrast. T he dose-length product was 648.96 mGy-cm. Automated exposure control and iterative reconstruction el hnique were employed. COMPARISON: None FINDINGS: There is mild left frontal/periorbital soft tissue swelling as well as swelling over the le ft zygoma. No acute facial fracture is identified. Orbits are symmetric. No post septal abnormalities . Paranasal sinuses are pneumatized. Trace fluid in the left maxillary sinus. Orbits are intact witho ut evidence for blowout fracture. Zygomatic arches are intact. Mandible and maxilla are intact with n ormal alignment. IMPRESSION: 1. No acute facial fracture. Reviewed, dictated and finalized at location A.
--- NOTE | ~2022-01-31 | CT_ITS ---
EXAMINATION: CT brain wo con DATE: 01/31/2022 23:26 INDICATION: Multiple falls. Trauma to the face and 4 head. TECHNIQUE: Computed tomography (CT) of the head was performed without intravenous contrast. The dose- length product was 605.33 mGy-cm. Automated exposure control and iterative reconstruction technique w ere employed. COMPARISON: CT dated 08/19/2021 FINDINGS: There are chronic infarctions of the left insula, thalamus and temporal lobes. There is a p ossible age indeterminate right occipital lobe infarction. Mild generalized atrophy. There are scatte red mild periventricular and subcortical white matter changes, most likely related to small vessel is chemic disease (microangiopathy). Study limited by motion artifact. No ventriculomegaly or midline sh ift. There is mild soft tissue swelling in the left periorbital region. No orbital abnormalities are seen. No ventriculomegaly or midline shift. No depressed skull fractures. Paranasal sinuses and masto ids are pneumatized. IMPRESSION: 1. Multiple chronic infarctions described above. Possible age indeterminate right occipital lobe infa rction, although evaluation limited by motion. If there is concern for acute infarction, correlation with MRI is recommended for further assessment. 2: Chronic age-related findings. Reviewed, dictated and finalized at location A. IMPRESSION: 1. Multiple chronic infarctions described above. Possible age indeterminate rig ht occipital lobe infarction, although evaluation limited by motion. If there i s concern for acute infarction, correlation with MRI is recommended for further assessment. 2: Chronic age-related findings.
--- NOTE | 2022-01-31 22:20 | ECG_ITS ---
Measurements Intervals [place] Rate: 92 P: RI: 0 QRS: 225 QRSD: 150 T: 33 QT: 412 QTc: 512 Interpretive Statements ATRIAL FIBRILLATION WITH ABERRANT CONDUCTION OR VENTRICULAR PREMATURE COMPLEXES RIGHT AXIS DEVIATION [QRS AXIS > 100] INTRAVENTRICULAR CONDUCTION DELAY [130+ ms QRS DURATION] ABNORMAL ECG COMPARED TO ECG 07/03/2020 15:16:45 ABERRANT CONDUCTION OF SUPRAVENTRICULAR BEAT(S) NOW PRESENT INTRAVENTRICULAR CONDUCTION DELAY NOW PRESENT Electronically Signed On 02-01-2022 10:58:17 CDT by Misael Courtney M.D.
--- NOTE | 2022-01-31 22:23 | ED.GENADULT ---
HPI - General Adult General Chief complaint: Fall Stated complaint: Amb Time Seen by Provider: 01/31/22 22:23 History of Present Illness HPI narrative: The patient is a 66-year-old male with history of coronary artery disease status post coronary artery bypass grafting, TIA, hyperlipidemia, chronic atrial fibrillation on warfarin therapy, gout, diabetes, COPD, and depression. He was home, and tripped on a shower chair thereby falling, landing on the left side of his body. He lay on the ground for approximately 2-3 hours and was unable to get up secondary to weakness. he comes here for further evaluation. He has no complaints of chest pain or abdominal pain or nausea or vomiting or headache although he does have some left-sided facial swelling but this is nontender. This of some left hand pain at the site where he fell. No lower extremity pain except minimally at the ankles. No loss of consciousness. Related Data Home Medications Medication Instructions Recorded Confirmed albuterol sulfate 90 mcg/actuation 1 puff inhalation Q6H PRN 07/03/20 01/31/22 aerosol inhaler (Ventolin HFA) Shortness Of Breath allopurinol 300 mg tablet 300 mg PO DAILY 07/03/20 01/31/22 amlodipine 2.5 mg tablet 2.5 mg PO DAILY 07/03/20 01/31/22 aspirin 81 mg tablet 81 mg PO DAILY 07/03/20 01/31/22 atorvastatin 80 mg tablet 80 mg PO HS 07/03/20 01/31/22 carvedilol 6.25 mg tablet 12.5 mg PO DAILY 07/03/20 01/31/22 fluticasone fur. 100 mcg-umeclid 1 ea inhalation DAILY 07/03/20 01/31/22 62.5 mcg-vilant 25 mcg inhalat.powder (Trelegy Ellipta) fluticasone propionate 50 2 spray intranasal DAILY 07/03/20 01/31/22 mcg/actuation nasal spray,suspension furosemide 40 mg tablet 80 mg PO BID 07/03/20 01/31/22 gabapentin 100 mg capsule See Rx Instructions .Route .COMPLEX 07/03/20 01/31/22 glipizide 5 mg tablet, extended 5 mg PO DAILY 07/03/20 01/31/22 release 24 hr hydrocodone 7.5 mg-acetaminophen 1 tablet PO BID PRN Pain 07/03/20 01/31/22 325 mg tablet losartan 50 mg tablet 50 mg PO DAILY 07/03/20 01/31/22 melatonin 10 mg tablet 10 mg PO HS PRN Sleep 07/03/20 01/31/22 metformin 500 mg tablet 500 mg PO BID 07/03/20 01/31/22 pantoprazole 40 mg tablet,delayed 40 mg PO DAILY 07/03/20 01/31/22 release potassium chloride 20 mEq 40 meq PO DAILY 07/03/20 01/31/22 tablet,extended release(part/cryst) sertraline 50 mg tablet 150 mg PO DAILY 07/03/20 01/31/22 trazodone 100 mg tablet 200 mg PO HS 07/03/20 01/31/22 triamcinolone acetonide 0.5 % 1 applic topical BID 07/03/20 01/31/22 topical cream warfarin 1 mg tablet 2 mg PO DAILY 07/03/20 01/31/22 warfarin 10 mg tablet 5 mg PO DAILY 07/03/20 01/31/22 enoxaparin 100 mg/mL subcutaneous 40 mg subcut Q12HR 01/31/22 01/31/22 syringe (Lovenox) metoclopramide HCl 10 mg tablet 1 tablet PO TID 01/31/22 02/01/22 ropinirole 2 mg tablet 2 tablet PO HS 01/31/22 02/01/22 clonazepam 1 mg tablet 1 mg PO HS PRN Insomnia 02/01/22 02/01/22 docusate sodium 100 mg capsule 100 mg PO DAILY PRN Constipation 02/01/22 02/01/22 metolazone 2.5 mg tablet 2.5 mg PO DAILY 02/01/22 02/01/22 Allergies Allergy/AdvReac Type Severity Reaction Status Date / Time No Known Allergies Allergy Verified 01/31/22 23:48 Review of Systems Review of Systems: All systems reviewed & are unremarkable except as noted in HPI and below Constitutional: Constitutional: Reports no additional constitutional complaints, Denies anorexia, Reports body ache(s), Denies chills, Denies excessive sweating, Reports fatigue, Denies fever(s), Reports frequent falls (fell earlier today as well, for 2 falls today), Denies headache(s), Reports malaise and Denies poor appetite Eyes: Eyes: Reports no additional eye complaints, Denies blurry vision, Denies change in vision, Denies irritation, Denies itchy eyes and Denies photophobia ENT: Reports system reviewed and no additional complaints, except as documented, Reports Normal hearing present, Denies change in voice, D
[2022-01-31 22:26] VITALS: BP 156/90; PULSE 93; RESP 20; TEMP 36.2; O2SAT 96
[2022-01-31 22:47] LABS: Basophils Absolute Auto 0.03 K/mm3 (0.00-0.10); Basophils Percent Auto 0.2 % (0.0-1.0); Hematocrit 37.4 % (37.0-46.0); Hemoglobin 11.9 g/dL (12.4-15.3); Immature Granulocyte Absolute 0.13 K/mm3 (0.00-0.00); Immature Granulocyte Percent A 0.7 % (0.0-0.0); Lymphocytes Absolute Auto 1.01 K/mm3 (1.10-4.50); Lymphocytes Percent Auto 5.7 % (18.0-42.0); Mean Corpuscular HGB Conc 31.8 g/dL (32.0-36.0); Mean Corpuscular Hemoglobin 27.9 pg (27.0-31.0); Mean Corpuscular Volume 87.8 fL (78.0-102.0); Mean Platelet Volume 10.5 fl (8.7-11.0); Monocytes Absolute Auto 1.23 K/mm3 (0.10-0.90); Monocytes Percent Auto 6.9 % (2.0-11.0); Neutrophils Absolute Auto 15.4 K/mm3 (1.7-7.2); Neutrophils Percent Auto 86.5 % (50.0-70.0); Platelet Count Result 192 K/mm3 (150-420); Red Blood Count 4.26 M/mm3 (4.70-6.10); Red Cell Distribution Width 14.6 % (11.6-14.4); White Blood Count 17.8 K/mm3 (4.8-10.8)
[2022-01-31 22:59] LABS: Prothrombin Time 10.5 Seconds (9.50-12.10)
[2022-01-31 23:04] LABS: Alanine Aminotransferase 50 U/L (16-63); Albumin Level 3.9 g/dL (3.4-5.0); Alkaline Phosphatase 128 U/L (46-116); Anion Gap 15 mmol/L (8-16); Aspartate Amino Transferase 41 U/L (15-37); Blood Urea Nitrogen 49 mg/dL (7-18); Calcium 9.7 mg/dL (8.5-10.1); Carbon Dioxide 23 mmol/L (21-32); Chloride 88 mmol/L (98-108); Creatine Kinase 565 U/L (39-308); Estimated CRCL calculation 40 ml/min; Estimated Glomerular Filt Rate 37; Glucose 229 mg/dL (70-99); Osmolality Calculated 282 mOsm/kg (285-295); Potassium 4.1 mmol/L (3.5-5.1); Sodium 126 mmol/L (136-145); Total Protein 8.5 g/dL (6.4-8.2)
[2022-01-31 23:06] LABS: Lactic Acid Reflex 5.8 mmol/L (0.4-2.0)
[2022-01-31 23:07] LABS: Troponin I 125.4 ng/L (0.00-60.4)
[2022-01-31 23:49] LABS: Add Urine Microscopic? YES; Appearance Urine Clear (Clear); Bilirubin Urine Negative (Negative); Blood Urine 2+ (Negative); Color Urine Light Yellow (Yellow); Glucose Urine UA Trace (Negative); Ketones Urine Negative (Negative); Leukocyte Esterase Ur Negative LEU/UL (Negative); Nitrate Urine Negative (Negative); Protein Urine 1+ (Negative); Specific Grav Ur 1.015 (1.010-1.020); Urobilinogen Urine 0.2 mg/dL (0.2-1.0)
[2022-01-31 23:53] LABS: Mucus Urine Few /lpf; RBC Urine None seen /hpf (0-2); Squamous Epithelial Cell Urine Rare /hpf (Few)
[2022-02-01 00:50] VITALS: BP 149/86; PULSE 90; RESP 19; O2SAT 94
[2022-02-01 01:01] VITALS: BP 151/88; PULSE 97; RESP 18; O2SAT 93
[2022-02-01] MEDS: ASPIRIN 81 MG CHEWABLE TABLET 324 MG PO (01:12)
[2022-02-01] MEDS: NITROGLYCERIN OINTMENT 1 INCH DOSE TRANSDERM (01:13)
[2022-02-01] MEDS: MORPHINE SULFATE (*CRX) 4 MG/ML INJ IV PUSH (01:16)
[2022-02-01] MEDS: ORPHENADRINE CITRATE 30 MG/ML 2 ML VIAL 60 MG IV PUSH (01:20)
[2022-02-01] MEDS: SODIUM CHLORIDE 0.9% IV 1,000 ML 999 ML IV CONT (01:25)
--- NOTE | 2022-02-01 01:35 | PC.NURSE ---
requested radiology to send/push radiology reports to [facility] in [place].
[2022-02-01 01:44] LABS: Reflex Lactic Acid Yes or No Add Lactic
[2022-02-01] MEDS: SODIUM CHLORIDE 0.9% IV 100 ML 200 ML (01:48)
[2022-02-01] MEDS: ENOXAPARIN 100 MG/ML SYRINGE SUB-Q (01:50)
[2022-02-01 02:05] VITALS: BP 142/83; PULSE 98; RESP 20; O2SAT 92
[2022-02-01 02:07] LABS: NT Pro B Type Natriuretic Pept 2278 pg/mL (0-125)
[2022-02-01 02:10] LABS: CRP 0.6 mg/dL (0.0-0.9)
[2022-02-01 02:11] LABS: Lactic Acid 2.3 mmol/L (0.4-2.0)
[2022-02-01 02:12] LABS: Troponin I 208.8 ng/L (0.00-60.4)
--- NOTE | 2022-02-01 02:13 | ECG_ITS ---
Measurements Intervals [place] Rate: 100 P: MS: 0 QRS: -37 QRSD: 144 T: 140 QT: 383 QTc: 495 Interpretive Statements ATRIAL FIBRILLATION WITH RAPID VENTRICULAR RESPONSE WITH ABERRANT CONDUCTION OR VENTRICULAR PREMATURE COMPLEXES LEFT AXIS DEVIATION [QRS AXIS < -30] INTRAVENTRICULAR CONDUCTION DELAY [130+ ms QRS DURATION] ABNORMAL ECG COMPARED TO ECG 01/31/2022 22:30:14 LEFT-AXIS DEVIATION NOW PRESENT Electronically Signed On 02-01-2022 10:59:05 CDT by Misael Courtney M.D.
--- NOTE | 2022-02-01 02:14 | PC.NURSE ---
pt to be transferred to [facility], accepting [place]
[2022-02-01 02:22] LABS: SARS-CoV-2 RNA PCR Negative (Negative)
[2022-02-01 02:31] LABS: Influenza Control Valid (Valid)
[2022-02-01] MEDS: SODIUM CHLORIDE 0.9% IV 1,000 ML 100 ML IV CONT (02:37)
[2022-02-01 02:45] LABS: Erythrocyte Sedimentation Rate 37 mm/hr (0-20)
[2022-02-01] MEDS: MORPHINE SULFATE (*CRX) 4 MG/ML INJ IM (02:45)
[2022-02-01] MEDS: CYCLOBENZAPRINE HCL 10 MG TABLET PO (02:46)
--- NOTE | 2022-02-01 02:56 | PC.NURSE ---
Waiting for [facility] to assign a room for pt transfer
--- NOTE | 2022-02-01 03:28 | PC.NURSE ---
Jose from [facility] connect called to inform us that the patient will be going to room 509
--- NOTE | 2022-02-01 03:29 | PC.NURSE ---
requested patient transfer from [facility].
--- NOTE | 2022-02-01 03:34 | PC.NURSE ---
informed that [facility] is unable to transfer patient at this time.
--- NOTE | 2022-02-01 03:37 | PC.NURSE ---
requested ACLS pt transfer from [facility]
[2022-02-01 04:00] VITALS: BP 128/76; PULSE 105; RESP 18; TEMP 36.8; O2SAT 94
--- NOTE | 2022-02-01 04:00 | PC.NURSE ---
[facility] transporting pt to [facility] with IVF infusing - NS at 100ml/hr in 18g left AC.
--- NOTE | 2022-02-01 06:56 | ED.GENADULT ---
HPI - General Adult General Chief complaint: Fall Stated complaint: Amb Time Seen by Provider: 01/31/22 22:23 Related Data Home Medications Medication Instructions Recorded Confirmed albuterol sulfate 90 mcg/actuation 1 puff inhalation Q6H PRN 07/03/20 01/31/22 aerosol inhaler (Ventolin HFA) Shortness Of Breath allopurinol 300 mg tablet 300 mg PO DAILY 07/03/20 01/31/22 amlodipine 2.5 mg tablet 2.5 mg PO DAILY 07/03/20 01/31/22 aspirin 81 mg tablet 81 mg PO DAILY 07/03/20 01/31/22 atorvastatin 80 mg tablet 80 mg PO HS 07/03/20 01/31/22 carvedilol 6.25 mg tablet 12.5 mg PO DAILY 07/03/20 01/31/22 fluticasone fur. 100 mcg-umeclid 1 ea inhalation DAILY 07/03/20 01/31/22 62.5 mcg-vilant 25 mcg inhalat.powder (Trelegy Ellipta) fluticasone propionate 50 2 spray intranasal DAILY 07/03/20 01/31/22 mcg/actuation nasal spray,suspension furosemide 40 mg tablet 80 mg PO BID 07/03/20 01/31/22 gabapentin 100 mg capsule See Rx Instructions .Route .COMPLEX 07/03/20 01/31/22 glipizide 5 mg tablet, extended 5 mg PO DAILY 07/03/20 01/31/22 release 24 hr hydrocodone 7.5 mg-acetaminophen 1 tablet PO BID PRN Pain 07/03/20 01/31/22 325 mg tablet losartan 50 mg tablet 50 mg PO DAILY 07/03/20 01/31/22 melatonin 10 mg tablet 10 mg PO HS PRN Sleep 07/03/20 01/31/22 metformin 500 mg tablet 500 mg PO BID 07/03/20 01/31/22 pantoprazole 40 mg tablet,delayed 40 mg PO DAILY 07/03/20 01/31/22 release potassium chloride 20 mEq 40 meq PO DAILY 07/03/20 01/31/22 tablet,extended release(part/cryst) sertraline 50 mg tablet 150 mg PO DAILY 07/03/20 01/31/22 trazodone 100 mg tablet 200 mg PO HS 07/03/20 01/31/22 triamcinolone acetonide 0.5 % 1 applic topical BID 07/03/20 01/31/22 topical cream warfarin 1 mg tablet 2 mg PO DAILY 07/03/20 01/31/22 warfarin 10 mg tablet 5 mg PO DAILY 07/03/20 01/31/22 enoxaparin 100 mg/mL subcutaneous 40 mg subcut Q12HR 01/31/22 01/31/22 syringe (Lovenox) metoclopramide HCl 10 mg tablet 1 tablet PO TID 01/31/22 02/01/22 ropinirole 2 mg tablet 2 tablet PO HS 01/31/22 02/01/22 clonazepam 1 mg tablet 1 mg PO HS PRN Insomnia 02/01/22 02/01/22 docusate sodium 100 mg capsule 100 mg PO DAILY PRN Constipation 02/01/22 02/01/22 metolazone 2.5 mg tablet 2.5 mg PO DAILY 02/01/22 02/01/22 Allergies Allergy/AdvReac Type Severity Reaction Status Date / Time No Known Allergies Allergy Verified 01/31/22 23:48 [facility] Past Medical History Medical History Afib CAD (coronary artery disease) COPD (chronic obstructive pulmonary disease) Depression Diabetic neuropathy Gout Hyperlipidemia Surgical History Surgical History Cardiac catheterization as the cause of abnormal reaction of the patient, or of later complication, without mention of misadventure at the time of the procedure Social History Social History Smoking status: Former smoker Smoking end date: 09/02/1967 Drinks per week: 1 Substance use: former Substance use type: does not use Gender identity (if verbalized by the patient): Male Sexual Orientation (if Verbalized by the Patient): Straight or Heterosexual Spiritual care concerns: No Course Vital Signs Vital signs: Vital Signs Temperature 36.2 C L 01/31/22 22:26 Pulse Rate 93 01/31/22 22:26 Respiratory Rate 20 01/31/22 22:26 Blood Pressure 156/90 H 01/31/22 22:26 Pulse Oximetry 96 01/31/22 22:26 Oxygen Delivery Room Air 01/31/22 22:26 Temperature 36.8 C 02/01/22 04:00 Pulse Rate 105 H 02/01/22 04:00 Respiratory Rate 18 02/01/22 04:00 Blood Pressure 128/76 02/01/22 04:00 Pulse Oximetry 94 02/01/22 04:00 Oxygen Delivery Room Air 02/01/22 04:00 Medical Decision Making Vital Signs Vital Signs: Vital Signs Temperature 36.2 C L 01/31/22 22:26 Pulse Rate 93 01/31/22 22:26 Res
== END 2022-02-01 04:15 | disposition short-term general hospital (02) ==
PROVIDERS: Emergency Provider Emergency Medicine; PCP Family Medicine
DX: E86.0 Dehydration (principal); S00.83XA Contusion of other part of head, initial encounter; W18.30XA Fall on same level, unspecified, initial encounter; I21.4 Non-ST elevation (NSTEMI) myocardial infarction; E87.1 Hypo-osmolality and hyponatremia; I48.91 Unspecified atrial fibrillation; I25.10 Atherosclerotic heart disease of native coronary artery without angina pectoris; J44.9 Chronic obstructive pulmonary disease, unspecified; E78.5 Hyperlipidemia, unspecified; Z87.891 Personal history of nicotine dependence; E11.9 Type 2 diabetes mellitus without complications; Z79.01 Long term (current) use of anticoagulants; Z20.822 Contact with and (suspected) exposure to COVID-19
CPT/HCPCS: 36415; 70450; 70486; 71045; 72170; 73130; 80053; 81001; 82550; 83605; 83880; 84484; 85025; 85610; 85652; 85730; 86140; 87040; 87804; 93005; 96361; 96365; 96372; 96375; 99285; A9270; C9803; J1650; J2270; J2360; J2543; J7030; U0003; U0005

== ENCOUNTER 2022-02-06 15:05 | Inpatient (IN) | payer MEDICARE, OTHER, SELFPAY ==
[2022-02-06 15:28] VITALS: BP 147/89; PULSE 73; RESP 20; TEMP 36.1; O2SAT 96
--- NOTE | 2022-02-06 15:31 | ADMGEN ---
This patient, Mendez Lay, was admitted to 2nd Floor Room 205-2. Patient/family oriented to hospital policies and general routines including ID bracelet, bed and alarms, visiting hours, pain management, procedures, bathroom and other care routines, personal items, smoking policy, room service/diet, and visiting hours. Information on how to activate the Rapid Response Team has been discussed. Patient/Family are encouraged to report perceived risks to care and to ask questions if they do not understand what they are told or what they should do.
[2022-02-06 15:33] VITALS: BMI 32.4
[2022-02-06 18:18] VITALS: PULSE 73
[2022-02-06] MEDS: carvediloL 12.5 MG TABLET PO (18:18)
[2022-02-06] MEDS: DOXYCYCLINE HYCLATE 100 MG TABLET PO (18:53)
[2022-02-06 19:03] LABS: Hematocrit 36.5 % (37.0-46.0); Hemoglobin 11.4 g/dL (12.4-15.3); Mean Corpuscular HGB Conc 31.2 g/dL (32.0-36.0); Mean Corpuscular Hemoglobin 28.1 pg (27.0-31.0); Mean Corpuscular Volume 89.9 fL (78.0-102.0); Mean Platelet Volume 10.3 fl (8.7-11.0); Platelet Count Result 190 K/mm3 (150-420); Red Blood Count 4.06 M/mm3 (4.70-6.10); Red Cell Distribution Width 15.2 % (11.6-14.4); White Blood Count 10.6 K/mm3 (4.8-10.8)
[2022-02-06 19:13] LABS: Prothrombin Time 11.3 Seconds (9.50-12.10)
[2022-02-06 19:20] LABS: Alanine Aminotransferase 54 U/L (16-63); Albumin Level 3.4 g/dL (3.4-5.0); Alkaline Phosphatase 141 U/L (46-116); Anion Gap 8 mmol/L (8-16); Aspartate Amino Transferase 42 U/L (15-37); Bilirubin,Total 1.1 mg/dL (0.00-1.00); Blood Urea Nitrogen 28 mg/dL (7-18); Calcium 9.2 mg/dL (8.5-10.1); Carbon Dioxide 30 mmol/L (21-32); Chloride 97 mmol/L (98-108); Estimated CRCL calculation 53 ml/min; Estimated Glomerular Filt Rate 56; Glucose 193 mg/dL (70-99); Osmolality Calculated 290 mOsm/kg (285-295); Potassium 3.7 mmol/L (3.5-5.1); Sodium 135 mmol/L (136-145)
[2022-02-06] MEDS: HYDROcodone/acetaminophen (*CRX) 5-325 MG TABLET 1 TAB PO (20:23)
[2022-02-06] MEDS: rOPINIRole HCL 1 MG TABLET 4 MG PO (20:25)
[2022-02-06] MEDS: ATORVASTATIN 40 MG TABLET 80 MG PO (20:27)
[2022-02-06] MEDS: traZODone HCL 50 MG TABLET 100 MG PO (20:28)
[2022-02-06] MEDS: GABAPENTIN 300 MG CAPSULE 600 MG PO (20:29)
[2022-02-06] MEDS: ENOXAPARIN 100 MG/ML SYRINGE 90 MG SUB-Q (20:30)
[2022-02-06 20:48] LABS: Glucose Point of Care 228 mg/dl (65-105)
--- NOTE | 2022-02-06 22:44 | PC.NURSE ---
Pt had a small loosely formed bm. Stool color was brown. Pt stated he is not sure he completely emptied his bowels, but does feel some relief of pressure.
[2022-02-06 23:38] VITALS: BP 138/81; PULSE 72; RESP 18; TEMP 36.4; O2SAT 96
[2022-02-07] MEDS: ACETAMINOPHEN 325 MG TABLET 650 MG PO (00:34)
[2022-02-07] MEDS: clonazePAM (*CRX) 0.5 MG TABLET 1 MG PO ×2 (00:37→20:29)
[2022-02-07 08:00] VITALS: BP 118/67; PULSE 66; RESP 18; TEMP 35.9; O2SAT 95
[2022-02-07 09:03] VITALS: PULSE 88
[2022-02-07] MEDS: SERTRALINE HCL 50 MG TABLET PO (09:03)
[2022-02-07] MEDS: glipiZIDE XL 5 MG TABCR PO (09:03)
[2022-02-07] MEDS: carvediloL 12.5 MG TABLET PO ×2 (09:03→16:44)
[2022-02-07] MEDS: LOSARTAN POTASSIUM 50 MG TABLET PO (09:03)
[2022-02-07] MEDS: amLODIPine BESYLATE 2.5 MG TABLET PO (09:03)
[2022-02-07] MEDS: GABAPENTIN 100 MG CAPSULE 200 MG PO (09:03)
[2022-02-07] MEDS: FUROSEMIDE 40 MG TABLET PO (09:03)
[2022-02-07] MEDS: ASPIRIN 81 MG CHEWABLE TABLET PO (09:03)
[2022-02-07] MEDS: metFORMIN HCL 500 MG TABLET PO ×2 (09:04→16:44)
[2022-02-07] MEDS: DOXYCYCLINE HYCLATE 100 MG TABLET PO ×2 (09:04→16:45)
[2022-02-07] MEDS: allopurinoL 300 MG TABLET PO (09:04)
[2022-02-07] MEDS: PANTOPRAZOLE 40 MG TABLET PO (09:05)
[2022-02-07] MEDS: ENOXAPARIN 100 MG/ML SYRINGE 90 MG SUB-Q ×2 (09:15→20:37)
--- NOTE | 2022-02-07 10:08 | PM.IMHP ---
H&P: HPI History of Present Illness Date/Time: 02/07/22 10:08 Chief Complaint: Rehab status post fall Narrative: This is a 66-year-old male that is here at our facility for swing bed. Patient discharged from [facility] in [place] status post fall and admitted for NSTEMI patient has a past medical history of CAD, COPD, AF status post AVR, diabetes, A. fib, congestive heart failure, hypertension, CKD stage III, CVA, HLD, and recent ankle fracture. Patient admitted in swing bed for rehabilitation due to decreased balance decreased mobility in severe limited function endurant and/or mobility. The patient denies SOB, CP, palpitation, extremity numbness, lightheadedness, dizziness, constipation, diarrhea, chills, or fever. Patient only complaint is that he has pain to his left shoulder. Review of Systems Review of Systems: A 14 organ system Review of Systems was performed and pertinent positives included in the HPI, otherwise remaining ROS is negative. [facility] Past Medical History Medical History (Updated 02/07/22 @ 10:38 by VERA Gordon) Afib CAD (coronary artery disease) CKD (chronic kidney disease) Congestive heart failure COPD (chronic obstructive pulmonary disease) Depression Diabetes mellitus Diabetic neuropathy Gout Hyperlipidemia Surgical History Surgical History (Updated 02/07/22 @ 10:18 by VERA Gordon) Cardiac catheterization as the cause of abnormal reaction of the patient, or of later complication, without mention of misadventure at the time of the procedure Status post mechanical aortic valve replacement Family History Family History (Updated 02/06/22 @ 15:32 by Yvonne Zapien RN) Other Unknown family medical history Social History Social History Smoking status: Former smoker Smoking end date: 09/02/1967 Alcohol intake: current Drinks per week: 1 Substance use: never Substance use type: does not use Gender identity (if verbalized by the patient): Male Sexual Orientation (if Verbalized by the Patient): Straight or Heterosexual Spiritual care concerns: No Meds Home Medications and Allergies Home Medications Medication Instructions Recorded Confirmed Type albuterol sulfate 90 mcg/actuation 1 puff inhalation Q6H PRN 07/03/20 02/06/22 History aerosol inhaler (Ventolin HFA) Shortness Of Breath allopurinol 300 mg tablet 300 mg PO DAILY 07/03/20 02/06/22 History amlodipine 2.5 mg tablet 2.5 mg PO DAILY 07/03/20 02/06/22 History aspirin 81 mg tablet 81 mg PO DAILY 07/03/20 02/06/22 History atorvastatin 80 mg tablet 80 mg PO HS 07/03/20 02/06/22 History carvedilol 6.25 mg tablet 12.5 mg PO BID 07/03/20 02/06/22 History fluticasone propionate 50 2 spray intranasal DAILY 07/03/20 02/06/22 History mcg/actuation nasal spray,suspension furosemide 40 mg tablet 40 mg PO DAILY 07/03/20 02/06/22 History gabapentin 100 mg capsule See Rx Instructions .Route .COMPLEX 07/03/20 02/06/22 History glipizide 5 mg tablet, extended 5 mg PO DAILY 07/03/20 02/06/22 History release 24 hr losartan 50 mg tablet 50 mg PO DAILY 07/03/20 02/06/22 History melatonin 10 mg tablet 10 mg PO HS PRN Sleep 07/03/20 02/06/22 History metformin 500 mg tablet 500 mg PO BID 07/03/20 02/06/22 History pantoprazole 40 mg tablet,delayed 40 mg PO DAILY 07/03/20 02/06/22 History release sertraline 50 mg tablet 50 mg PO DAILY 07/03/20 02/06/22 History trazodone 100 mg tablet 100 mg PO HS PRN Insomnia 07/03/20 02/06/22 History warfarin 10 mg tablet 5 mg PO DAILY 07/03/20 02/06/22 History enoxaparin 100 mg/mL subcutaneous 100 mg subcut Q12HR 01/31/22 02/06/22 History syringe (Lovenox) ropinirole 2 mg tablet 4 mg PO HS 01/31/22 02/06/22 History clonazepam 1 mg tablet 1 mg PO HS PRN Insomnia 02/01/22 02/06/22 History docusate sodium 100 mg capsule 100 mg PO DAILY PRN Constipation 02/01/22 02/06/22 History doxycycline hyclate 100 mg ta
[2022-02-07 11:05] LABS: Hemoglobin A1C 7.7 % (<5.7)
[2022-02-07] MEDS: BENZONATATE 100 MG CAPSULE 200 MG PO ×2 (11:59→16:45)
[2022-02-07] MEDS: GABAPENTIN 400 MG CAPSULE PO (11:59)
[2022-02-07 12:03] LABS: Glucose Point of Care 262 mg/dl (65-105)
[2022-02-07 16:00] VITALS: BP 124/76; PULSE 68; RESP 18; TEMP 36.4; O2SAT 95
[2022-02-07] MEDS: HYDROcodone/acetaminophen (*CRX) 5-325 MG TABLET 1 TAB PO (16:01)
[2022-02-07 16:44] VITALS: PULSE 68
[2022-02-07] MEDS: WARFARIN (*PBKC) 5 MG TABLET PO (16:45)
[2022-02-07 16:54] LABS: Glucose Point of Care 275 mg/dl (65-105)
[2022-02-07] MEDS: traMADol HCL (*CRX) 50 MG TABLET PO (19:32)
[2022-02-07] MEDS: ATORVASTATIN 40 MG TABLET 80 MG PO (20:28)
[2022-02-07] MEDS: GABAPENTIN 300 MG CAPSULE 600 MG PO (20:33)
[2022-02-07] MEDS: traZODone HCL 50 MG TABLET 100 MG PO (20:33)
[2022-02-07] MEDS: rOPINIRole HCL 1 MG TABLET 4 MG PO (20:34)
[2022-02-07] MEDS: guaiFENesin 12 HR 600 MG TABCR 1200 MG PO (20:35)
[2022-02-07 20:49] LABS: Glucose Point of Care 110 mg/dl (65-105)
--- NOTE | 2022-02-07 21:46 | PC.NURSE ---
John Potter, Hospitalist, notified that patient's blood pressure is currently 80/44. Remains in that range in both arms and both with machine and manual.
[2022-02-07] MEDS: SODIUM CHLORIDE 0.9% IV 1,000 ML 999 ML IV CONT (22:37)
[2022-02-07 23:46] VITALS: BP 93/60; PULSE 58; RESP 21; TEMP 35.9; O2SAT 97
[2022-02-08 05:39] LABS: Prothrombin Time 11.3 Seconds (9.50-12.10)
[2022-02-08 07:52] LABS: Glucose Point of Care 108 mg/dl (65-105)
[2022-02-08] MEDS: HYDROcodone/acetaminophen (*CRX) 5-325 MG TABLET 1 TAB PO ×3 (07:55→23:05)
[2022-02-08 08:00] VITALS: BP 105/64; PULSE 59; RESP 17; TEMP 35.8; O2SAT 95
[2022-02-08] MEDS: ENOXAPARIN 100 MG/ML SYRINGE 90 MG SUB-Q ×2 (09:02→20:09)
[2022-02-08] MEDS: DOXYCYCLINE HYCLATE 100 MG TABLET PO ×2 (09:03→17:10)
[2022-02-08] MEDS: glipiZIDE XL 5 MG TABCR PO (09:03)
[2022-02-08] MEDS: LIDOCAINE 5% PATCH 1 PATCH TRANSDERM (09:03)
[2022-02-08] MEDS: metFORMIN HCL 500 MG TABLET PO ×2 (09:03→17:10)
[2022-02-08] MEDS: PANTOPRAZOLE 40 MG TABLET PO (09:03)
[2022-02-08] MEDS: allopurinoL 300 MG TABLET PO (09:03)
[2022-02-08] MEDS: GABAPENTIN 100 MG CAPSULE 200 MG PO (09:03)
[2022-02-08] MEDS: ASPIRIN 81 MG CHEWABLE TABLET PO (09:03)
[2022-02-08] MEDS: FUROSEMIDE 40 MG TABLET PO (09:04)
[2022-02-08] MEDS: SERTRALINE HCL 50 MG TABLET PO (09:04)
[2022-02-08] MEDS: BENZONATATE 100 MG CAPSULE 200 MG PO ×3 (09:04→17:10)
[2022-02-08] MEDS: guaiFENesin 12 HR 600 MG TABCR 1200 MG PO ×2 (09:04→20:07)
[2022-02-08 12:02] LABS: Glucose Point of Care 188 mg/dl (65-105)
[2022-02-08] MEDS: GABAPENTIN 400 MG CAPSULE PO (12:31)
[2022-02-08 16:00] VITALS: BP 126/69; PULSE 72; RESP 18; TEMP 36.1; O2SAT 98
[2022-02-08 17:04] LABS: Glucose Point of Care 155 mg/dl (65-105)
[2022-02-08] MEDS: WARFARIN (*PBKC) 5 MG TABLET PO (17:16)
[2022-02-08] MEDS: GABAPENTIN 300 MG CAPSULE 600 MG PO (20:03)
[2022-02-08] MEDS: ATORVASTATIN 40 MG TABLET 80 MG PO (20:04)
[2022-02-08] MEDS: traMADol HCL (*CRX) 50 MG TABLET PO (20:05)
[2022-02-08] MEDS: rOPINIRole HCL 1 MG TABLET 4 MG PO (20:06)
[2022-02-08 21:06] LABS: Glucose Point of Care 179 mg/dl (65-105)
[2022-02-08] MEDS: clonazePAM (*CRX) 0.5 MG TABLET 1 MG PO (22:21)
[2022-02-08 23:33] VITALS: BP 141/77; PULSE 65; RESP 18; TEMP 36.4; O2SAT 97
[2022-02-09 05:32] LABS: Prothrombin Time 11.4 Seconds (9.50-12.10)
[2022-02-09 07:32] LABS: Glucose Point of Care 150 mg/dl (65-105)
[2022-02-09 07:55] VITALS: BP 117/75; PULSE 73; RESP 16; TEMP 36.2; O2SAT 98
[2022-02-09] MEDS: LIDOCAINE 5% PATCH 1 PATCH TRANSDERM (08:13)
[2022-02-09] MEDS: ASPIRIN 81 MG CHEWABLE TABLET PO (08:14)
[2022-02-09] MEDS: ENOXAPARIN 100 MG/ML SYRINGE 90 MG SUB-Q ×2 (08:14→20:30)
[2022-02-09] MEDS: HYDROcodone/acetaminophen (*CRX) 5-325 MG TABLET 1 TAB PO ×2 (08:15→21:00)
[2022-02-09] MEDS: BENZONATATE 100 MG CAPSULE 200 MG PO ×3 (08:16→17:15)
[2022-02-09] MEDS: SERTRALINE HCL 50 MG TABLET PO (08:16)
[2022-02-09] MEDS: metFORMIN HCL 500 MG TABLET PO ×2 (08:16→17:15)
[2022-02-09] MEDS: DOXYCYCLINE HYCLATE 100 MG TABLET PO (08:16)
[2022-02-09] MEDS: guaiFENesin 12 HR 600 MG TABCR 1200 MG PO ×2 (08:17→20:42)
[2022-02-09] MEDS: glipiZIDE XL 5 MG TABCR PO (08:17)
[2022-02-09] MEDS: PANTOPRAZOLE 40 MG TABLET PO (08:17)
[2022-02-09] MEDS: FUROSEMIDE 40 MG TABLET PO (08:17)
[2022-02-09] MEDS: GABAPENTIN 100 MG CAPSULE 200 MG PO (08:18)
[2022-02-09] MEDS: allopurinoL 300 MG TABLET PO (08:18)
[2022-02-09] MEDS: FLUTICASONE PROPIONATE 0.05% NA SPR 16 GM BTL (*BKC) 2 SPRAY NASAL (08:19)
--- NOTE | 2022-02-09 09:15 | PM.EVENT ---
Event Note Event Note Event Note: Patient hypotensive over the weekend. blood pressure medication adjusted patient amlodipine and losartan discontinued carvedilol decreased to 3.125. Patient always received 1 L bolus. Blood pressure improved. We will continue to adjust medication as needed
[2022-02-09 11:52] LABS: Glucose Point of Care 149 mg/dl (65-105)
[2022-02-09] MEDS: GABAPENTIN 400 MG CAPSULE PO (12:26)
--- NOTE | 2022-02-09 14:06 | PC.NURSE ---
BP 123/85 at this time.
[2022-02-09 16:00] VITALS: BP 128/76; PULSE 67; RESP 16; TEMP 36.2; O2SAT 98
[2022-02-09] MEDS: WARFARIN (*PBKC) 5 MG TABLET PO (17:14)
[2022-02-09 17:19] LABS: Glucose Point of Care 130 mg/dl (65-105)
[2022-02-09 20:33] LABS: Glucose Point of Care 219 mg/dl (65-105)
[2022-02-09 20:41] VITALS: PULSE 65
[2022-02-09] MEDS: carvediloL 3.125 MG TABLET PO (20:41)
[2022-02-09] MEDS: ATORVASTATIN 40 MG TABLET 80 MG PO (20:41)
[2022-02-09] MEDS: rOPINIRole HCL 1 MG TABLET 4 MG PO (20:42)
[2022-02-09] MEDS: GABAPENTIN 300 MG CAPSULE 600 MG PO (20:42)
[2022-02-09] MEDS: MELATONIN 5 MG TABLET 10 MG PO (21:00)
[2022-02-10] VITALS: BP 132/91; PULSE 65; RESP 20; TEMP 36.2; O2SAT 93
[2022-02-10 05:36] LABS: INR 1.1; Prothrombin Time 11.9 Seconds (9.50-12.10)
[2022-02-10 07:38] LABS: Glucose Point of Care 134 mg/dl (65-105)
[2022-02-10 07:45] VITALS: BP 143/72; PULSE 72; RESP 16; TEMP 36.2; O2SAT 97
--- OUTSIDE RECORDS SUMMARY | 2022-02-10 08:12 | XMS_ITS ---
:1955 Author Organization [facility] - [facility] Address [facility] [place], [place] [id number] [place] [id number] Care Team Providers Name Role Phone Piyush Pandey MD Unavailable Megan Infante MD Primary Care Provider Sharmila Davis APRN, SLIP BOX CHANGER-C Unavailable [phone] Linda Block MD Unavailable Jeff Grace MD Unavailable Zaki Ortiz MD Unavailable Reason for Referral Procedure (Routine) - New Request Specialty Diagnoses / Procedures Referred By Contact Refer red To Contact Diagnoses Elevated troponin NSTEMI (non-ST elevated myocardial infarction) ([facility]) Sjs 5 Cvcu Procedures Stress Test only, exercise [address], [place] [address] Referral ID Status Reason Start Date Expiration Date Visits V isits Requested Authorized [id number] New Request 02/02/2022 03/04/2023 1 1 maging (Urgent) - Pending Review Specialty Diagnoses / Procedures Referred By Contact Refer red To Contact RADIOLOGY Procedures Sharmila Davis, RESIDENTIAL INTERIOR DESIGNER, NM PHARM NUC STRESS TEST 1DA Y SLIP BOX CHANGER-C NM PHARM NUC STRESS TEST 1DAY [address] [facility]
[2022-02-10] MEDS: FLUTICASONE PROPIONATE 0.05% NA SPR 16 GM BTL (*BKC) 2 SPRAY NASAL (08:21)
[2022-02-10] MEDS: LIDOCAINE 5% PATCH 1 PATCH TRANSDERM (08:22)
[2022-02-10] MEDS: ENOXAPARIN 100 MG/ML SYRINGE 90 MG SUB-Q ×2 (08:23→20:19)
[2022-02-10] MEDS: SERTRALINE HCL 50 MG TABLET PO (08:24)
[2022-02-10] MEDS: ASPIRIN 81 MG CHEWABLE TABLET PO (08:24)
[2022-02-10] MEDS: GABAPENTIN 100 MG CAPSULE 200 MG PO (08:24)
[2022-02-10] MEDS: metFORMIN HCL 500 MG TABLET PO ×2 (08:25→17:07)
[2022-02-10] MEDS: PANTOPRAZOLE 40 MG TABLET PO (08:25)
[2022-02-10] MEDS: allopurinoL 300 MG TABLET PO (08:25)
[2022-02-10] MEDS: BENZONATATE 100 MG CAPSULE 200 MG PO ×3 (08:25→17:07)
[2022-02-10] MEDS: glipiZIDE XL 5 MG TABCR PO (08:25)
[2022-02-10] MEDS: FUROSEMIDE 40 MG TABLET PO (08:26)
[2022-02-10] MEDS: guaiFENesin 12 HR 600 MG TABCR 1200 MG PO ×2 (08:26→20:24)
[2022-02-10 08:28] VITALS: PULSE 74
[2022-02-10] MEDS: carvediloL 3.125 MG TABLET PO ×2 (08:28→20:20)
[2022-02-10] MEDS: LOSARTAN POTASSIUM 12.5 MG TABLET PO (08:33)
[2022-02-10] MEDS: amLODIPine BESYLATE 2.5 MG TABLET PO (08:33)
[2022-02-10 11:34] LABS: Glucose Point of Care 223 mg/dl (65-105)
[2022-02-10] MEDS: GABAPENTIN 400 MG CAPSULE PO (12:09)
[2022-02-10 16:00] VITALS: BP 135/64; PULSE 73; RESP 16; TEMP 36.6; O2SAT 98
[2022-02-10 16:43] LABS: Glucose Point of Care 105 mg/dl (65-105)
[2022-02-10] MEDS: WARFARIN (*PBKC) 5 MG TABLET PO (17:06)
[2022-02-10 20:20] VITALS: PULSE 76
[2022-02-10] MEDS: ATORVASTATIN 40 MG TABLET 80 MG PO (20:20)
[2022-02-10 20:22] LABS: Glucose Point of Care 171 mg/dl (65-105)
[2022-02-10] MEDS: GABAPENTIN 300 MG CAPSULE 600 MG PO (20:24)
[2022-02-10] MEDS: rOPINIRole HCL 1 MG TABLET 4 MG PO (20:24)
[2022-02-10] MEDS: HYDROcodone/acetaminophen (*CRX) 5-325 MG TABLET 1 TAB PO (20:25)
[2022-02-10] MEDS: MELATONIN 5 MG TABLET 10 MG PO (20:25)
[2022-02-10 23:44] VITALS: BP 155/66; PULSE 75; RESP 20; TEMP 36.5; O2SAT 96
[2022-02-11 05:18] LABS: INR 1.2; Prothrombin Time 12.6 Seconds (9.50-12.10)
[2022-02-11 07:47] LABS: Glucose Point of Care 172 mg/dl (65-105)
[2022-02-11 08:00] VITALS: BP 153/91; PULSE 70; RESP 16; TEMP 36.4; O2SAT 98
--- NOTE | 2022-02-11 08:31 | P.DS_ITS ---
DS: Admitting Diagnosis Discharge Date 02/11/2022 Admitting Diagnosis Rehab weakness DS: Discharge Diagnosis Discharge Diagnosis (1) Hyperlipidemia: Code(s): E78.5 - Hyperlipidemia, unspecified Status: Acute Assessment and Plan: * Continue atorvastatin (2) CAD (coronary artery disease): Code(s): I25.10 - Atherosclerotic heart disease of [place] coronary artery without angina pectoris Status: Acute Assessment and Plan: * Continue atorvastatin (3) Afib: Code(s): I48.91 - Unspecified atrial fibrillation Status: Acute Assessment and Plan: * Controlled * Continue carvedilol 12.5 mg twice daily * Continue warfarin 5 mg daily * None therapeutic at this time INR 1.0 patient also on Lovenox * Daily PT/INR (4) Gout: Code(s): M10.9 - Gout, unspecified Status: Acute Assessment and Plan: * Continue aloe protein (5) Diabetic neuropathy: Code(s): E11.40 - Type 2 diabetes mellitus with diabetic neuropathy, unspecified Status: Acute Assessment and Plan: * Continue gabapentin (6) COPD (chronic obstructive pulmonary disease): Code(s): J44.9 - Chronic obstructive pulmonary disease, unspecified Status: Acute Assessment and Plan: * Stable * Continue albuterol (7) Depression: Code(s): F32.9 - Major depressive disorder, single episode, unspecified Status: Acute Assessment and Plan: * Stable * Continue sertraline (8) Status post mechanical aortic valve replacement: Code(s): Z95.2 - Presence of prosthetic heart valve Status: Acute Assessment and Plan: * Continue warfarin 5 mg daily and Lovenox 100 mg twice daily for 7 days along with daily INRs * INR currently not therapeutic, INR 1.0 * Will monitor until INR is at 2.5 * Follow-up with Dr. Pandey in 1 month * Follow-up with Dr. Jeff riddle for (9) CKD (chronic kidney disease): Code(s): N18.9 - Chronic kidney disease, unspecified Status: Acute Assessment and Plan: * Patient BUN/creatinine 28/1.29 better than baseline creatinine baseline appears to be at 1.40-1.60 * Avoid nephrotoxic agents * Renal dose medication (10) Diabetes mellitus: Code(s): E11.9 - Type 2 diabetes mellitus without complications Status: Acute Assessment and Plan: * Blood sugar 193 * A1c pending * Continue glipizide 5 mg and metformin * Started sliding scale with hypoglycemic protocol and low-dose sliding scale (11) Weakness: Code(s): R53.1 - Weakness Status: Acute Assessment and Plan: ? Exhibit tolerance during physical activity as evidenced by a normal fluctuation of vital signs during physical activity. ? Patient will be ability to perform required activities of daily living. ? Provide appropriate nutrition for healing and strength. ? Use appropriate to prevent falls. ? Continue physical therapy/occupational therapy. (12) Congestive heart failure: Code(s): I50.9 - Heart failure, unspecified Status: Acute Assessment and Plan: * Stable * Continue Lasix 40 mg daily * daily weights * Echo scheduled for April 15 on Wednesday at 9:30 AM (ultrasound (13) Ankle fracture: Code(s): S82.899A - Other fracture of unspecified lower leg, initial encounter for closed fracture Status: Acute Assessment and Plan: * From previous fall * [facility] on February 26 at 2:30 PM (
--- NOTE | 2022-02-11 08:31 | PM.DS ---
DS: Admitting Diagnosis Discharge Date 02/11/2022 Admitting Diagnosis Rehab weakness DS: Discharge Diagnosis Discharge Diagnosis (1) Hyperlipidemia: Code(s): E78.5 - Hyperlipidemia, unspecified Status: Acute Assessment and Plan: Continue atorvastatin (2) CAD (coronary artery disease): Code(s): I25.10 - Atherosclerotic heart disease of [place] coronary artery without angina pectoris Status: Acute Assessment and Plan: Continue atorvastatin (3) Afib: Code(s): I48.91 - Unspecified atrial fibrillation Status: Acute Assessment and Plan: Controlled Continue carvedilol 12.5 mg twice daily Continue warfarin 5 mg daily None therapeutic at this time INR 1.0 patient also on Lovenox Daily PT/INR (4) Gout: Code(s): M10.9 - Gout, unspecified Status: Acute Assessment and Plan: Continue aloe protein (5) Diabetic neuropathy: Code(s): E11.40 - Type 2 diabetes mellitus with diabetic neuropathy, unspecified Status: Acute Assessment and Plan: Continue gabapentin (6) COPD (chronic obstructive pulmonary disease): Code(s): J44.9 - Chronic obstructive pulmonary disease, unspecified Status: Acute Assessment and Plan: Stable Continue albuterol (7) Depression: Code(s): F32.9 - Major depressive disorder, single episode, unspecified Status: Acute Assessment and Plan: Stable Continue sertraline (8) Status post mechanical aortic valve replacement: Code(s): Z95.2 - Presence of prosthetic heart valve Status: Acute Assessment and Plan: Continue warfarin 5 mg daily and Lovenox 100 mg twice daily for 7 days along with daily INRs INR currently not therapeutic, INR 1.0 Will monitor until INR is at 2.5 Follow-up with Dr. Pandey in 1 month Follow-up with Dr. Jeff riddle for (9) CKD (chronic kidney disease): Code(s): N18.9 - Chronic kidney disease, unspecified Status: Acute Assessment and Plan: Patient BUN/creatinine 28/1.29 better than baseline creatinine baseline appears to be at 1.40-1.60 Avoid nephrotoxic agents Renal dose medication (10) Diabetes mellitus: Code(s): E11.9 - Type 2 diabetes mellitus without complications Status: Acute Assessment and Plan: Blood sugar 193 A1c pending Continue glipizide 5 mg and metformin Started sliding scale with hypoglycemic protocol and low-dose sliding scale (11) Weakness: Code(s): R53.1 - Weakness Status: Acute Assessment and Plan: ? Exhibit tolerance during physical activity as evidenced by a normal fluctuation of vital signs during physical activity. ? Patient will be ability to perform required activities of daily living. ? Provide appropriate nutrition for healing and strength. ? Use appropriate to prevent falls. ? Continue physical therapy/occupational therapy. (12) Congestive heart failure: Code(s): I50.9 - Heart failure, unspecified Status: Acute Assessment and Plan: Stable Continue Lasix 40 mg daily daily weights Echo scheduled for April 15 on Wednesday at 9:30 AM (ultrasound (13) Ankle fracture: Code(s): S82.899A - Other fracture of unspecified lower leg, initial encounter for closed fracture Status: Acute Assessment and Plan: From previous fall [facility] on February 26 at 2:30 PM (14) NSTEMI (non-ST elevated myocardial infarction): Onset Date: 02/01/22 Code(s): I21.4 - Non-ST elevation (NSTEMI) myocardial infarction Status: Acute DS: Summary Hospital Course Hospital Course: This is a 66-year-old male that is here at our facility for swing bed.? Patient discharged from [facility] in [place] status post fall and admitted for NSTEMI patient has a past medical history of CAD, COPD, AF status post AVR, diabetes, A. fib, congestive heart f
[2022-02-11] MEDS: LIDOCAINE 5% PATCH 1 PATCH TRANSDERM (09:05)
[2022-02-11] MEDS: BENZONATATE 100 MG CAPSULE 200 MG PO ×2 (09:05→12:00)
[2022-02-11] MEDS: ENOXAPARIN 100 MG/ML SYRINGE 90 MG SUB-Q (09:06)
[2022-02-11] MEDS: FLUTICASONE PROPIONATE 0.05% NA SPR 16 GM BTL (*BKC) 2 SPRAY NASAL (09:07)
[2022-02-11] MEDS: LOSARTAN POTASSIUM 12.5 MG TABLET PO (09:07)
[2022-02-11] MEDS: glipiZIDE XL 5 MG TABCR PO (09:08)
[2022-02-11] MEDS: metFORMIN HCL 500 MG TABLET PO (09:08)
[2022-02-11] MEDS: ASPIRIN 81 MG CHEWABLE TABLET PO (09:08)
[2022-02-11] MEDS: guaiFENesin 12 HR 600 MG TABCR 1200 MG PO (09:08)
[2022-02-11] MEDS: GABAPENTIN 100 MG CAPSULE 200 MG PO (09:08)
[2022-02-11] MEDS: amLODIPine BESYLATE 2.5 MG TABLET PO (09:08)
[2022-02-11 09:09] VITALS: PULSE 70
[2022-02-11] MEDS: allopurinoL 300 MG TABLET PO (09:09)
[2022-02-11] MEDS: carvediloL 3.125 MG TABLET PO (09:09)
[2022-02-11] MEDS: PANTOPRAZOLE 40 MG TABLET PO (09:09)
[2022-02-11] MEDS: FUROSEMIDE 40 MG TABLET PO (09:09)
[2022-02-11] MEDS: SERTRALINE HCL 50 MG TABLET PO (09:09)
--- NOTE | 2022-02-11 09:55 | PC.NURSE ---
Patient complains of nausea, emesis bag given, IP COUNSEL aware, awaiting orders for antiemetic. No distress noted.
[2022-02-11] MEDS: ONDANSETRON HCL ODT 4 MG TABLET PO (10:09)
[2022-02-11 11:47] LABS: Glucose Point of Care 216 mg/dl (65-105)
[2022-02-11] MEDS: GABAPENTIN 400 MG CAPSULE PO (13:03)
--- NOTE | 2022-02-11 16:43 | PC.NURSE ---
1610 family here and dc instructions went over. iv out. up with stand by assist. in [place] and pushed out to [employer].
--- NOTE | 2022-02-13 14:52 | PC.NURSE ---
Pt states he received and understood his discharge instructions. Pt also states his care was good .
== END 2022-02-11 16:10 | disposition home or self-care (01) | DRG 947 ==
PROVIDERS: Nurse Practitioner; Admitting Provider Internal Medicine; PCP Family Medicine; Visit Provider Internal Medicine
DX: R53.1 Weakness (principal); I21.9 Acute myocardial infarction, unspecified; I48.20 Chronic atrial fibrillation, unspecified; I13.0 Hypertensive heart and chronic kidney disease with heart failure and stage 1 through stage 4 chronic kidney disease, or unspecified chronic kidney disease; S82.899D Other fracture of unspecified lower leg, subsequent encounter for closed fracture with routine healing; I25.10 Atherosclerotic heart disease of native coronary artery without angina pectoris; N18.30 Chronic kidney disease, stage 3 unspecified; I50.9 Heart failure, unspecified; E11.22 Type 2 diabetes mellitus with diabetic chronic kidney disease; E11.40 Type 2 diabetes mellitus with diabetic neuropathy, unspecified; E78.5 Hyperlipidemia, unspecified; J44.9 Chronic obstructive pulmonary disease, unspecified; F32.A Depression, unspecified; Z87.891 Personal history of nicotine dependence; Z79.01 Long term (current) use of anticoagulants; Z95.2 Presence of prosthetic heart valve
CPT/HCPCS: 36415; 80053; 82948; 83036; 85027; 85610; 97110; 97161; 97165; 97530; 97535; A9270; J1650; J1815; J7030

== ENCOUNTER 2022-03-03 15:57 | Outpatient (RCR) | payer MEDICARE, OTHER, SELFPAY ==
--- NOTE | 2022-03-03 16:39 | PTOPEVAL ---
Thank you for referring Mendez Lay to [facility].? The patient is scheduled to be seen for therapy? __2__x/week for 10 visits. Please review, sign, date and return this plan of care RACHELE. I agree with and certify that the following plan of care is medically necessary. Referring Physician Date Admitting Provider: Attending Provider: Jacinto Vega, Referring Provider: *PT Outpatient Evaluation Start: 03/03/22 16:02 Freq: Status: Active Protocol: Document 03/03/22 16:03 [facility] (Rec: 03/03/22 16:39 [facility] [id number]) Therapy Assessment Status Assessment Status Assessment Status Evaluation Outpatient Past Medical History Neurological History Hx Neurological Disorders No Significant History Cardiovascular History Hx Atrial Fibrillation Yes Hx Cardiac Surgery Yes Hx Hypertension Yes Hx Valve Replacement Yes Hx Other Cardiac Disorders Yes Respiratory History Hx Chronic Obstructive Pulmonary Disease Yes (COPD) Gastrointestinal History Hx Gastrointestinal Disorders No Significant History Genitourinary History Hx Genitourinary Disorders No Significant History Musculoskeletal History Hx Musculoskeletal Disorders No Significant History Hematological History Hx Hematological Disorders No Significant History Endocrine History Hx Diabetes Yes HEENT History Hx HEENT Disorders No Significant History Integumentary History Hx Skin Disorders No Significant History Reproductive History Hx Reproductive Disorders No Significant History Psychosocial History Hx Psychiatric Disorders No Significant History Pain History History of Any Previous or Ongoing No Significant History Instance of Pain Anesthesia History Hx Anesthesia Reactions No Significant History Evaluation Information Problem Diagnosis right distal fibula fx, balance dysfunction Onset 01/01/22 Subjective Information Pt. reports that he fell at Query Text:As Reported By Patient/ home and fx his right ankle. Family He reports that he wore a boot for a short duration. Pt. reports that he has been in a regular for awhile. Pt. reports that he does have some tenderness on the outside of the right ankle. He is using a cane. He reports that he has returned to driving. HE reports that he lives with his daughter and uses a walker at
--- NOTE | 2022-03-19 17:07 | PTOPEVAL ---
Thank you for referring Mendez Lay to [facility].? The patient is scheduled to be seen for therapy? ____x/week for ___ weeks. Please review, sign, date and return this plan of care RACHELE. I agree with and certify that the following plan of care is medically necessary. Referring Physician Date Admitting Provider: Attending Provider: Jacinto Vega, Referring Provider: *PT Outpatient Evaluation Start: 03/03/22 16:02 Freq: Status: Active Protocol: Document 03/19/22 15:35 [facility] (Rec: 03/19/22 17:07 [facility] [id number]) Therapy Assessment Status Assessment Status Assessment Status Discharge Outpatient Past Medical History Neurological History Hx Neurological Disorders No Significant History Cardiovascular History Hx Atrial Fibrillation Yes Hx Cardiac Surgery Yes Hx Hypertension Yes Hx Valve Replacement Yes Hx Other Cardiac Disorders Yes Respiratory History Hx Chronic Obstructive Pulmonary Disease Yes (COPD) Gastrointestinal History Hx Gastrointestinal Disorders No Significant History Genitourinary History Hx Genitourinary Disorders No Significant History Musculoskeletal History Hx Musculoskeletal Disorders No Significant History Hematological History Hx Hematological Disorders No Significant History Endocrine History Hx Diabetes Yes HEENT History Hx HEENT Disorders No Significant History Integumentary History Hx Skin Disorders No Significant History Reproductive History Hx Reproductive Disorders No Significant History Psychosocial History Hx Psychiatric Disorders No Significant History Pain History History of Any Previous or Ongoing No Significant History Instance of Pain Anesthesia History Hx Anesthesia Reactions No Significant History Evaluation Information Problem Diagnosis right distal fibula fx, balance dysfunction Onset 01/01/22 Additional Evaluation Detail quick dash = 72% functionally declined Subjective Information patient reports he feels Query Text:As Reported By Patient/ alright this date. he reports Family he wants today to be his last therapy session. he reports his legs will always be the same, but he does feel better since when he started therapy. Pain Assessment Timing of Pain Assessment Timing of Pain Assessment Assessment Pain Scale Pain Scale Used Numeric (1 - 10) Self Report Pain Assessment Right Ankle(s) Reported Pain Level 4 Pain Score Pain Score 4: Self Repor
== END 2022-03-19 16:36 | disposition home or self-care (01) ==
LOC: CHSPT 15:57
PROVIDERS: Visit Provider Orthopaedic Surgery
DX: S82.401D Unspecified fracture of shaft of right fibula, subsequent encounter for closed fracture with routine healing (principal); R26.9 Unspecified abnormalities of gait and mobility
CPT/HCPCS: 97110; 97112; 97161; 97530

== ENCOUNTER 2022-04-02 14:01 | Outpatient (CLI) | payer MEDICARE, SELFPAY ==
[2022-04-02 14:18] LABS: Basophils Absolute Auto 0.06 K/mm3 (0.00-0.10); Basophils Percent Auto 0.6 % (0.0-1.0); Eosinophils Absolute Auto 0.34 K/mm3 (0.02-0.50); Eosinophils Percent Auto 3.2 % (1.0-6.0); Hematocrit 35.3 % (37.0-46.0); Immature Granulocyte Absolute 0.03 K/mm3 (0.00-0.00); Immature Granulocyte Percent A 0.3 % (0.0-0.0); Lymphocytes Absolute Auto 1.84 K/mm3 (1.10-4.50); Lymphocytes Percent Auto 17.6 % (18.0-42.0); Mean Corpuscular HGB Conc 31.2 g/dL (32.0-36.0); Mean Corpuscular Hemoglobin 27.4 pg (27.0-31.0); Mean Corpuscular Volume 87.8 fL (78.0-102.0); Mean Platelet Volume 10.3 fl (8.7-11.0); Monocytes Absolute Auto 1.07 K/mm3 (0.10-0.90); Monocytes Percent Auto 10.2 % (2.0-11.0); Neutrophils Absolute Auto 7.1 K/mm3 (1.7-7.2); Neutrophils Percent Auto 68.1 % (50.0-70.0); Platelet Count Result 205 K/mm3 (150-420); Red Blood Count 4.02 M/mm3 (4.70-6.10); Red Cell Distribution Width 14.6 % (11.6-14.4); White Blood Count 10.5 K/mm3 (4.8-10.8)
[2022-04-02 14:28] LABS: Hemoglobin A1C 8.5 % (<5.7)
[2022-04-02 15:40] LABS: Anion Gap 10 mmol/L (8-16); Blood Urea Nitrogen 26 mg/dL (7-18); Calcium 9.2 mg/dL (8.5-10.1); Carbon Dioxide 27 mmol/L (21-32); Chloride 99 mmol/L (98-108); Estimated Glomerular Filt Rate 53; Glucose 135 mg/dL (70-99); Osmolality Calculated 288 mOsm/kg (285-295); Potassium 4.7 mmol/L (3.5-5.1); Prostate Specific Antigen 1.7 ng/mL (< OR = 4.0); Sodium 136 mmol/L (136-145)
== END 2022-04-02 14:02 | disposition home or self-care (01) ==
LOC: CHSLAB 14:04
PROVIDERS: PCP Family Medicine; Visit Provider Physician Assistant
DX: N40.2 Nodular prostate without lower urinary tract symptoms (principal); E11.9 Type 2 diabetes mellitus without complications; D64.9 Anemia, unspecified; I48.20 Chronic atrial fibrillation, unspecified
CPT/HCPCS: 36415; 80048; 83036; 84153; 85025; G0103

== ENCOUNTER 2022-07-09 10:03 | Outpatient (CLI) | payer MEDICARE, SELFPAY ==
[2022-07-09 10:20] LABS: Basophils Absolute Auto 0.05 K/mm3 (0.00-0.10); Basophils Percent Auto 0.4 % (0.0-1.0); Eosinophils Absolute Auto 0.26 K/mm3 (0.02-0.50); Eosinophils Percent Auto 2.1 % (1.0-6.0); Hematocrit 38.8 % (37.0-46.0); Immature Granulocyte Absolute 0.05 K/mm3 (0.00-0.00); Immature Granulocyte Percent A 0.4 % (0.0-0.0); Lymphocytes Absolute Auto 1.37 K/mm3 (1.10-4.50); Lymphocytes Percent Auto 11.2 % (18.0-42.0); Mean Corpuscular HGB Conc 30.9 g/dL (32.0-36.0); Mean Corpuscular Hemoglobin 26.3 pg (27.0-31.0); Mean Corpuscular Volume 84.9 fL (78.0-102.0); Mean Platelet Volume 11.6 fl (8.7-11.0); Monocytes Absolute Auto 0.95 K/mm3 (0.10-0.90); Monocytes Percent Auto 7.8 % (2.0-11.0); Neutrophils Absolute Auto 9.5 K/mm3 (1.7-7.2); Neutrophils Percent Auto 78.1 % (50.0-70.0); Platelet Count Result 194 K/mm3 (150-420); Red Blood Count 4.57 M/mm3 (4.70-6.10); Red Cell Distribution Width 15.7 % (11.6-14.4); White Blood Count 12.2 K/mm3 (4.8-10.8)
[2022-07-09 10:35] LABS: Hemoglobin A1C 11.8 % (<5.7)
[2022-07-09 11:14] LABS: Anion Gap 8 mmol/L (8-16); Blood Urea Nitrogen 20 mg/dL (7-18); Carbon Dioxide 29 mmol/L (21-32); Chloride 99 mmol/L (98-108); Cholesterol 153 mg/dL (0-200); Estimated Glomerular Filt Rate 47; HDL Direct 65 mg/dL (40-60); LDL Cholesterol Calculated 65 mg/dL (<130); Osmolality Calculated 302 mOsm/kg (285-295); Potassium 4.9 mmol/L (3.5-5.1); Sodium 136 mmol/L (136-145); Triglycerides 115 mg/dL (0-150)
[2022-07-09 11:16] LABS: Glucose 424 mg/dL (70-99)
== END 2022-07-09 10:04 | disposition home or self-care (01) ==
LOC: CHSLAB 10:06
PROVIDERS: PCP Family Medicine; Visit Provider Physician Assistant
DX: E78.2 Mixed hyperlipidemia (principal); E11.9 Type 2 diabetes mellitus without complications
CPT/HCPCS: 36415; 80048; 80061; 83036; 85025

== ENCOUNTER 2022-07-14 13:03 | Outpatient (CLI) | payer MEDICARE, OTHER, SELFPAY ==
--- NOTE | ~2022-07-14 | XR_ITS ---
[id number] 07/14/2022 13:25 Indication: Neck pain Procedure: 5 view cervical spine Comparison: No prior studies for comparison. Findings: Vertebral body heights are maintained. There is multilevel facet and uncinate hypertrophy. Lung apices are normal. Odontoid process is normal. No prevertebral soft tissue swelling. There are b ulky ventral osteophytes at C3-4 and C5-6. There is disc narrowing at C5-6. Odontoid process is unrem arkable. Lateral masses are normally aligned. Impression: 1: Moderate-severe cervical spondylosis. Reviewed, dictated and finalized at location [facility] Impression: 1: Moderate-severe cervical spondylosis.
== END 2022-07-14 13:04 | disposition home or self-care (01) ==
LOC: CHSIMG 13:07
PROVIDERS: PCP Family Medicine; Visit Provider Physician Assistant
DX: M54.2 Cervicalgia (principal)
CPT/HCPCS: 72040

== ENCOUNTER 2022-07-27 10:10 | Outpatient (RCR) | payer MEDICARE, OTHER, SELFPAY ==
--- NOTE | 2022-07-27 10:37 | PTOPEVAL1 ---
Assessment and note entered by Palomo Enamorado Evaluation Information Assessment Status Evaluation Diagnosis neck pain Onset 07/22/22 Subjective Information Pt. reports that he has been having neck pain on/ off for several months. He notes that pain is mostly located on the upper part of the neck. He states that his pain is constant. He states that he has to sleep in a chair due to pain. He states that he has trouble laying flat. He reports that driving is difficult because he cant turn his head well. He reports that his goal is to decrease his neck pain. Reported Pain Level Pain Score 9: Self Report Assessment PT Clinical Summary Pt. is a 66 year old male who enters the clinic due to neck pain. He presents with impaired postural awareness, impaired proximal u.e. strength, impaired c-spine mobility and pain. Continued treatment is indicated in order to improve these areas to allow the pt. to be able to complete all IADL's with improved comfort and efficiency. Plan of Care Interventions Electrical Stimulation,Hot Pack/Cold Pack,Manual Therapy,Neuro Re-education,Therapeutic Activities, Therapeutic Exercise,Self-Care/Home Management PT Services Indicated Yes Treatment Frequency and 3x/week x 12 visits Duration These treatments will address the objective and functional deficits as defined above. The patient will be advanced safely and appropriately in order for the patient to progress towards his/her prior level of function. Additional exercises will be introduced and as well as a comprehensive home exercise program upon discharge, if needed, ?to ensure carryover of functional gains achieved in the clinic. This treatment plan has been reviewed and agreement upon by the patient.
== END 2022-09-02 14:37 | disposition home or self-care (01) ==
LOC: CHSPT 10:10
PROVIDERS: PCP Family Medicine; Visit Provider Physician Assistant
DX: M54.2 Cervicalgia (principal)
CPT/HCPCS: 97014; 97110; 97140; 97161; G0283

== ENCOUNTER 2022-10-22 10:28 | Outpatient (CLI) | payer MEDICARE, OTHER, SELFPAY ==
--- NOTE | ~2022-10-22 | MR_ITS ---
MRI of the cervical spine Clinical History: Neck pain, stiffness Technique: Axial T2-weighted and gradient images, and sagittal T1-weighted, T2-weighted, and STIR tony ges were acquired. Findings: There is no fracture or subluxation of the cervical spine. Vertebral bodies maintain normal height and alignment. No bone marrow signal abnormality seen. At C2-C3, there is mild canal stenosis without significant disc bulge or herniation. No helen cord co mpression. Probable mild bilateral neural foraminal narrowing. At C3-C4, there is mild canal stenosis and probable minimal flattening of the ventral cord. No signif icant disc bulge or herniation evident. There is probable mild bilateral neural foraminal narrowing. At C4-C5, disc osteophyte complex results in mild to moderate canal stenosis and cord compression. Th ere is advanced bilateral neural foraminal narrowing. At C5-C6, there is no helen disc bulge or herniation, but there is mild osseous canal stenosis. Neura l foramina are relatively well-preserved. At C6-C7, there is no disc bulge or herniation. No helen spinal canal stenosis or cord compression. P robable left neural foraminal narrowing. Right neural foramen preserved. Impression: [id number] degenerative spondylosis, as detailed above. There is probable mild to moderate edouard l stenosis and cord compression at C4-C5. Probable mild canal stenosis and minimal ventral cord janki ening at C3-C4. Multilevel neural foraminal narrowing, as noted above. Reviewed, dictated and finalized at [facility]. [facility] Impression: [id number] degenerative spondylosis, as detailed above. There is probable mild to moderate canal stenosis and cord compression at C4-C5. Probable mild c anal stenosis and minimal ventral cord flattening at C3-C4. Multilevel neural f oraminal narrowing, as noted above.
== END 2022-10-22 10:29 | disposition home or self-care (01) ==
LOC: CHSIMG 10:29
PROVIDERS: PCP Family Medicine; Visit Provider Physician Assistant
DX: M54.12 Radiculopathy, cervical region (principal); M43.02 Spondylolysis, cervical region
CPT/HCPCS: 72141

== ENCOUNTER 2022-10-30 11:34 | Outpatient (CLI) | payer MEDICARE, SELFPAY ==
[2022-10-30 12:09] LABS: Basophils Absolute Auto 0.05 K/mm3 (0.00-0.10); Basophils Percent Auto 0.4 % (0.0-1.0); Eosinophils Absolute Auto 0.22 K/mm3 (0.02-0.50); Eosinophils Percent Auto 1.9 % (1.0-6.0); Hematocrit 34.3 % (37.0-46.0); Hemoglobin 10.2 g/dL (12.4-15.3); Immature Granulocyte Absolute 0.05 K/mm3 (0.00-0.00); Immature Granulocyte Percent A 0.4 % (0.0-0.0); Lymphocytes Absolute Auto 1.06 K/mm3 (1.10-4.50); Lymphocytes Percent Auto 9.3 % (18.0-42.0); Mean Corpuscular HGB Conc 29.7 g/dL (32.0-36.0); Mean Corpuscular Hemoglobin 24.7 pg (27.0-31.0); Mean Corpuscular Volume 83.1 fL (78.0-102.0); Monocytes Absolute Auto 0.99 K/mm3 (0.10-0.90); Monocytes Percent Auto 8.7 % (2.0-11.0); Neutrophils Percent Auto 79.3 % (50.0-70.0); Platelet Count Result 203 K/mm3 (150-420); Red Blood Count 4.13 M/mm3 (4.70-6.10); Red Cell Distribution Width 17.2 % (11.6-14.4); White Blood Count 11.4 K/mm3 (4.8-10.8)
[2022-10-30 12:34] LABS: Hemoglobin A1C 9.3 % (<5.7)
[2022-10-30 12:36] LABS: Creatinine Urine 34.11 mg/dL (40-278); MALB Creatinine Ratio 264.4 mg/g (0-30); Microalbumin Urine Random 90.2 mg/L
[2022-10-30 12:45] LABS: INR 4.3; Prothrombin Time 42.1 Seconds (9.50-12.10)
[2022-10-30 13:10] LABS: Alanine Aminotransferase 25 U/L (16-63); Albumin Level 3.4 g/dL (3.4-5.0); Alkaline Phosphatase 115 U/L (46-116); Anion Gap 10 mmol/L (8-16); Aspartate Amino Transferase 20 U/L (15-37); Bilirubin,Total 0.9 mg/dL (0.00-1.00); Blood Urea Nitrogen 26 mg/dL (7-18); Calcium 8.8 mg/dL (8.5-10.1); Carbon Dioxide 24 mmol/L (21-32); Chloride 101 mmol/L (98-108); Estimated Glomerular Filt Rate 48; Glucose 184 mg/dL (70-99); Osmolality Calculated 289 mOsm/kg (285-295); Sodium 135 mmol/L (136-145); Total Protein 7.4 g/dL (6.4-8.2)
== END 2022-10-30 11:35 | disposition home or self-care (01) ==
LOC: CHSLAB 11:37
PROVIDERS: PCP Family Medicine; Visit Provider Physician Assistant
DX: E11.65 Type 2 diabetes mellitus with hyperglycemia (principal); I48.91 Unspecified atrial fibrillation
CPT/HCPCS: 36415; 80053; 82043; 83036; 85025; 85610

== ENCOUNTER 2022-11-03 08:47 | Outpatient (CLI) | payer MEDICARE, SELFPAY ==
[2022-11-03 09:44] LABS: INR 3.9; Prothrombin Time 38.7 Seconds (9.50-12.10)
[2022-11-03 10:21] LABS: Anion Gap 11 mmol/L (8-16); Blood Urea Nitrogen 27 mg/dL (7-18); Carbon Dioxide 25 mmol/L (21-32); Chloride 102 mmol/L (98-108); Estimated Glomerular Filt Rate 42; Glucose 139 mg/dL (70-99); Osmolality Calculated 293 mOsm/kg (285-295); Potassium 5.9 mmol/L (3.5-5.1); Sodium 138 mmol/L (136-145)
[2022-11-03 10:28] LABS: Calcium 8.7 mg/dL (8.5-10.1)
== END 2022-11-03 08:48 | disposition home or self-care (01) ==
LOC: CHSLAB 08:49
PROVIDERS: PCP Family Medicine; Visit Provider Physician Assistant
DX: E87.5 Hyperkalemia (principal); I48.91 Unspecified atrial fibrillation
CPT/HCPCS: 36415; 80048; 85610

== ENCOUNTER 2022-11-06 08:39 | Outpatient (CLI) | payer MEDICARE, SELFPAY ==
[2022-11-06 09:30] LABS: INR 1.8; Prothrombin Time 18.6 Seconds (9.50-12.10)
[2022-11-06 10:03] LABS: Anion Gap 8 mmol/L (8-16); Blood Urea Nitrogen 27 mg/dL (7-18); Calcium 8.9 mg/dL (8.5-10.1); Carbon Dioxide 26 mmol/L (21-32); Chloride 103 mmol/L (98-108); Estimated Glomerular Filt Rate 48; Glucose 133 mg/dL (70-99); Osmolality Calculated 291 mOsm/kg (285-295); Potassium 5.4 mmol/L (3.5-5.1); Sodium 137 mmol/L (136-145)
== END 2022-11-06 08:40 | disposition home or self-care (01) ==
PROVIDERS: PCP Family Medicine; Visit Provider Physician Assistant
DX: E87.5 Hyperkalemia (principal); I48.91 Unspecified atrial fibrillation
CPT/HCPCS: 36415; 80048; 85610

== ENCOUNTER 2022-12-05 08:15 | Outpatient (CLI) | payer MEDICARE, OTHER, SELFPAY ==
--- NOTE | ~2022-12-05 | MR_ITS ---
MRI of the thoracic spine Clinical History: Ataxia Technique: Axial T2-weighted and gradient images, and sagittal T1-weighted, T2-weighted, and STIR tony ges were acquired. Findings: There is no fracture or subluxation of the thoracic spine. Vertebral bodies maintain normal height and alignment. No bone marrow signal abnormality evident. There is partial fusion across the T6-T7, T7-T8 disc spaces. There is mild degenerative disc narrowin g scattered throughout the thoracic spine otherwise. There is a right paracentral disc osteophyte com plex at T7-T8, which minimally flattens the ventral cord at this level on the right side. No other di sc bulge or herniation evident. No other areas of spinal canal stenosis or cord compression. No abnormal signal seen in the spinal cord. No epidural mass or collection seen. There is a lipoma in the posterior subcutaneous soft tissues measuring 3.5 cm in maximum diameter, just left of midline. Impression: Mild degenerative disc changes in the thoracic spine, as detailed above. No fracture or subluxation. 3.5 cm lipoma in the posterior subcutaneous soft tissues. Reviewed, dictated and finalized at [facility]. Impression: Mild degenerative disc changes in the thoracic spine, as detailed above. No fracture or subluxation. 3.5 cm lipoma in the posterior subcutaneous soft tissues.
--- NOTE | ~2022-12-05 | MR_ITS ---
MRI of the lumbar spine Clinical History: Ataxia, bilateral foot numbness Technique: Axial T2-weighted images, and sagittal T1-weighted, T2-weighted, and T2 fat-sat images wer e acquired. Findings: There is no fracture of the lumbar spine. Minimal grade 1 anterolisthesis of L5 over S1 not ed. No suspicious bone marrow signal abnormality seen. At L1-L2, there is mild facet joint degenerative change. No disc bulge or herniation. No spinal canal stenosis or neural foraminal narrowing. At L2-L3, there is minimal disc bulge with mild facet arthropathy. There is minimal effacement of the thecal sac. Neural foramina are preserved. At L3-L4, there is disc bulge and facet arthropathy, which result in mild to moderate thecal sac comp ression/spinal canal stenosis. There is mild to moderate left neural foraminal narrowing and minimal right neural foraminal narrowing. At L4-L5, disc bulge and facet arthropathy are present, with mild central canal stenosis. There is mo derate bilateral neural foraminal narrowing. At L5-S1, there is disc bulge and mild facet joint degenerative change. No helen spinal canal stenosi s. There is moderate to advanced bilateral neural foraminal narrowing. Paravertebral soft tissues are unremarkable. Impression: Moderate degenerative spondylitic changes, as detailed above, worst at the lower lumbar spine. Minimal grade 1 anterolisthesis of L5 over S1. Reviewed, dictated and finalized at [facility]. Impression: Moderate degenerative spondylitic changes, as detailed above, worst at the lowe r lumbar spine. Minimal grade 1 anterolisthesis of L5 over S1.
== END 2022-12-05 08:16 | disposition home or self-care (01) ==
LOC: CHSIMG 08:16
PROVIDERS: PCP Family Medicine
DX: R48.2 Apraxia (principal); R27.0 Ataxia, unspecified; R29.818 Other symptoms and signs involving the nervous system; M43.16 Spondylolisthesis, lumbar region; D17.1 Benign lipomatous neoplasm of skin and subcutaneous tissue of trunk
CPT/HCPCS: 72146; 72148

== ENCOUNTER 2022-12-17 11:32 | Outpatient (RCR) | payer MEDICARE, OTHER, SELFPAY ==
--- NOTE | 2022-12-12 12:40 | PC.NURSE ---
Patient tolerated IV ATB well. IV removed, tip intact. Dressing applied to site. Patient accompanied to front door via wheelchair, left via private vehicle by himself.
--- NOTE | 2022-12-13 14:30 | PC.NURSE ---
Patient tolerated infusion well. Denies any questions or concerns at this time. IV Site removed, dressing applied to site. Patient accompanied to front door via wheelchair by this nurse. Left via private vehicle.
[2022-12-14 12:11] VITALS: BP 110/67; PULSE 68; RESP 20; TEMP 36.4; O2SAT 91
--- NOTE | 2022-12-14 12:12 | PC.NURSE ---
Patient arrived on floor at 1200 via wheelchair. Placed in room 202 Patient had difficulty standing up from wheelchair and transferring-required assistance. Immediately asked for lunch tray. VS obtained. Requested O2 at home setting 2 liters Provided, C/O SOB Upper lobes closed. Lower lobes diminished.
--- NOTE | 2022-12-14 14:39 | PC.NURSE ---
IV completed. IV flushed and saline locked with sorbashield on site. Patient advised not to get site wet and how to protect if he needs to shower. Taken to his own vehicle by wheelchair. Transferred self to car.
--- NOTE | 2022-12-15 11:52 | PC.NURSE ---
Presents for OP vancomycin, trough drawn and taken to lab
[2022-12-15 12:22] LABS: Vancomycin Trough 32.4 ug/mL (10.0-15.0)
--- NOTE | 2022-12-15 12:24 | PC.NURSE ---
Trough level of 32.4 reported to pharmacy, awaiting orders
--- NOTE | 2022-12-15 12:53 | PC.NURSE ---
discharged, will not receive meds today, to return tomorrow at same time for lesser dose and have blood work wednesday before that dose.
--- NOTE | 2022-12-16 13:52 | PC.NURSE ---
[id number] patient requested to leave iv acess in place for tomorrow's infusion. #22 in r inner arm remains intact. site is clean. coban in place. wheeled patient to auto.
--- NOTE | 2022-12-17 12:15 | PC.NURSE ---
Lab called with Critical Trough of 28.1. Radha pharmacist notified. Holding dose today. IV site to right forearm left in place for infusion tomorrow.
[2022-12-17 12:17] LABS: Vancomycin Trough 28.1 ug/mL (10.0-15.0)
== END 2023-03-12 23:59 | disposition home or self-care (01) ==
LOC: CHSTREATRM 11:32
PROVIDERS: PCP Family Medicine; Visit Provider Family Medicine
DX: L03.116 Cellulitis of left lower limb (principal); L03.115 Cellulitis of right lower limb
CPT/HCPCS: 36415; 71046; 80053; 80202; 81001; 83036; 85025; 85610; 85730; 96365; 96366; J3370

== ENCOUNTER 2022-12-17 13:05 | Outpatient (CLI) | payer MEDICARE, OTHER, SELFPAY ==
--- NOTE | ~2022-12-17 | XR_ITS ---
Clinical Indication: Shortness of breath PA and lateral views of the chest: Comparison: 01/31/2022 Findings: There is probable minimal pulmonary edema pattern.. Cardiomediastinal silhouette is stable , status post aortic valve replacement. Bones and soft tissues are unremarkable. Impression: Minimal pulmonary edema. Status post aortic valve replacement. Reviewed, dictated and finalized at [facility]. Impression: Minimal pulmonary edema. Status post aortic valve replacement.
[2022-12-17 13:31] LABS: Basophils Absolute Auto 0.05 K/mm3 (0.00-0.10); Basophils Percent Auto 0.6 % (0.0-1.0); Eosinophils Absolute Auto 0.29 K/mm3 (0.02-0.50); Eosinophils Percent Auto 3.7 % (1.0-6.0); Hematocrit 30.7 % (37.0-46.0); Immature Granulocyte Absolute 0.02 K/mm3 (0.00-0.00); Immature Granulocyte Percent A 0.3 % (0.0-0.0); Lymphocytes Absolute Auto 1.03 K/mm3 (1.10-4.50); Lymphocytes Percent Auto 13.2 % (18.0-42.0); Mean Corpuscular HGB Conc 29.3 g/dL (32.0-36.0); Mean Corpuscular Hemoglobin 23.6 pg (27.0-31.0); Mean Corpuscular Volume 80.6 fL (78.0-102.0); Mean Platelet Volume 10.1 fl (8.7-11.0); Monocytes Absolute Auto 0.81 K/mm3 (0.10-0.90); Monocytes Percent Auto 10.3 % (2.0-11.0); Neutrophils Absolute Auto 5.6 K/mm3 (1.7-7.2); Neutrophils Percent Auto 71.9 % (50.0-70.0); Platelet Count Result 193 K/mm3 (150-420); Red Blood Count 3.81 M/mm3 (4.70-6.10); Red Cell Distribution Width 17.5 % (11.6-14.4); White Blood Count 7.8 K/mm3 (4.8-10.8)
[2022-12-17 13:47] LABS: Appearance Urine Clear (Clear); Bilirubin Urine Negative (Negative); Blood Urine 3+ (Negative); Color Urine Light Yellow (Yellow); Glucose Urine UA 3+ (Negative); Ketones Urine Negative (Negative); Leukocyte Esterase Ur Negative LEU/UL (Negative); Nitrate Urine Negative (Negative); Protein Urine Negative (Negative)
[2022-12-17 13:53] LABS: INR 4.6; Partial Thromboplastin Time 46.1 SEC (23.90-30.70); Prothrombin Time 44.3 Seconds (9.50-12.10)
[2022-12-17 13:58] LABS: Add Urine Microscopic? YES; RBC Urine 21-50 /hpf (0-2)
[2022-12-17 13:59] LABS: Bacteria Urine Rare /hpf; WBC Urine None seen /hpf (0-3)
[2022-12-17 14:03] LABS: Alanine Aminotransferase 26 U/L (16-63); Albumin Level 3.3 g/dL (3.4-5.0); Alkaline Phosphatase 134 U/L (46-116); Anion Gap 9 mmol/L (8-16); Aspartate Amino Transferase 23 U/L (15-37); Bilirubin,Total 0.7 mg/dL (0.00-1.00); Blood Urea Nitrogen 34 mg/dL (7-18); Calcium 9.1 mg/dL (8.5-10.1); Carbon Dioxide 27 mmol/L (21-32); Chloride 98 mmol/L (98-108); Estimated Glomerular Filt Rate 28; Glucose 147 mg/dL (70-99); Osmolality Calculated 288 mOsm/kg (285-295); Potassium 5.3 mmol/L (3.5-5.1); Sodium 134 mmol/L (136-145); Total Protein 7.6 g/dL (6.4-8.2)
[2022-12-18 10:41] LABS: Hemoglobin A1C 8.8 % (<5.7)
== END 2022-12-17 13:06 | disposition home or self-care (01) ==
LOC: CHSLAB 13:10
PROVIDERS: PCP Family Medicine; Visit Provider Nurse Practitioner Family
DX: Z01.818 Encounter for other preprocedural examination (principal); L03.90 Cellulitis, unspecified; E11.65 Type 2 diabetes mellitus with hyperglycemia; J81.1 Chronic pulmonary edema; Z95.2 Presence of prosthetic heart valve
CPT/HCPCS: 36415; 71046; 80053; 81001; 83036; 85025; 85610; 85730

== ENCOUNTER 2023-01-15 12:31 | Outpatient (CLI) | payer MEDICARE, OTHER, SELFPAY ==
--- NOTE | ~2023-01-15 | US_ITS ---
US retroperitoneal comp 01/15/2023 13:13 Procedure: Realtime transabdominal ultrasound of the kidneys and bladder. Indication: Chronic kidney disease Comparison: No prior studies for comparison. Findings: Renal echotexture is normal bilaterally without hydronephrosis, contour deforming mass or r enal calculus. The right kidney measures 9.4 cm and left kidney measures 11.5 cm. There is a hypoecho ic mass of the right kidney measuring 2.2 cm without posterior features. Bladder within normal limits . There is a left renal cyst measuring 5 cm. Impression: 1: Hypoechoic right renal mass measuring 2.2 cm, possibly a complicated cyst. Recommend correlation w ith CT abdomen without and with contrast. Reviewed, dictated and finalized at location B. Impression: 1: Hypoechoic right renal mass measuring 2.2 cm, possibly a complicated cyst. R ecommend correlation with CT abdomen without and with contrast.
== END 2023-01-15 12:32 | disposition home or self-care (01) ==
LOC: CHSIMG 12:32
PROVIDERS: PCP Family Medicine; Visit Provider Internal Medicine Nephrology
DX: N18.30 Chronic kidney disease, stage 3 unspecified (principal); N28.89 Other specified disorders of kidney and ureter
CPT/HCPCS: 76770

== ENCOUNTER 2023-02-09 16:24 | Inpatient (IN) | payer MEDICARE, OTHER, SELFPAY ==
--- NOTE | 2023-02-09 17:27 | ADMGEN ---
This patient, Mendez Lay, was admitted to 2nd Floor Room 209-1. Patient/family oriented to hospital policies and general routines including ID bracelet, bed and alarms, visiting hours, pain management, procedures, bathroom and other care routines, personal items, smoking policy, room service/diet, and visiting hours. Information on how to activate the Rapid Response Team has been discussed. Patient/Family are encouraged to report perceived risks to care and to ask questions if they do not understand what they are told or what they should do.
[2023-02-09 17:28] VITALS: BP 123/70; PULSE 84; RESP 16; TEMP 36.3; O2SAT 96
[2023-02-09 18:24] LABS: INR 1.8; Prothrombin Time 19.1 Seconds (9.50-12.10)
--- NOTE | 2023-02-09 18:29 | PC.NURSE ---
pt voids in toilet without difficulty, helen blood noted in toilet after patient voids, when questioned pt reports that there was not this much blood in his urine at [facility], charge nurse notified
[2023-02-09 18:33] VITALS: BMI 32.2
--- NOTE | 2023-02-09 18:41 | PC.NURSE ---
levi muniz aware of bright red blood in toilet. patient claims he had this at other hospital but not this much or this bright red. new orders
[2023-02-09 18:50] LABS: Hematocrit 31.5 % (37.0-46.0); Hemoglobin 9.4 g/dL (12.4-15.3); Mean Corpuscular HGB Conc 29.8 g/dL (32.0-36.0); Mean Corpuscular Hemoglobin 23.7 pg (27.0-31.0); Mean Corpuscular Volume 79.5 fL (78.0-102.0); Platelet Count Result 252 K/mm3 (150-420); Red Blood Count 3.96 M/mm3 (4.70-6.10); Red Cell Distribution Width 20.7 % (11.6-14.4); White Blood Count 10.5 K/mm3 (4.8-10.8)
[2023-02-09] MEDS: HYDROcodone/acetaminophen (*CRX) 5-325 MG TABLET 1 TAB PO (19:22)
[2023-02-09] MEDS: FUROSEMIDE 40 MG TABLET PO (19:22)
[2023-02-09] MEDS: MUPIROCIN 2% OINT 22 GM TUBE 1 APPLIC TOPICAL (19:22)
[2023-02-09] MEDS: WARFARIN (*PBKC) 5 MG TABLET PO (19:23)
[2023-02-09] MEDS: WARFARIN (*PBKC) 0.5 MG TABLET PO (19:24)
[2023-02-09] MEDS: methocarbamoL 500 MG TABLET PO (19:25)
[2023-02-09 19:57] LABS: Glucose Point of Care 239 mg/dl (65-105)
[2023-02-09] MEDS: rOPINIRole HCL 1 MG TABLET 4 MG PO (21:17)
[2023-02-09 21:18] VITALS: PULSE 78
[2023-02-09] MEDS: ATORVASTATIN 40 MG TABLET 80 MG PO (21:18)
[2023-02-09] MEDS: carvediloL 3.125 MG TABLET PO (21:18)
[2023-02-09] MEDS: GABAPENTIN 400 MG CAPSULE 800 MG PO (21:18)
[2023-02-09] MEDS: INSULIN GLARGINE (*BKC) 1,000 UNITS/10 ML VIAL 15 UNITS SUB-Q (21:22)
[2023-02-09] MEDS: clonazePAM (*CRX) 0.5 MG TABLET 1 MG PO (21:29)
[2023-02-09] MEDS: traZODone HCL 50 MG TABLET 200 MG PO (21:29)
[2023-02-10] VITALS: BP 120/67; PULSE 89; RESP 20; TEMP 36.9; O2SAT 96
[2023-02-10 05:37] LABS: Basophils Absolute Auto 0.07 K/mm3 (0.00-0.10); Basophils Percent Auto 0.6 % (0.0-1.0); Eosinophils Absolute Auto 0.48 K/mm3 (0.02-0.50); Eosinophils Percent Auto 4.4 % (1.0-6.0); Hematocrit 31.5 % (37.0-46.0); Hemoglobin 9.3 g/dL (12.4-15.3); Immature Granulocyte Absolute 0.07 K/mm3 (0.00-0.00); Immature Granulocyte Percent A 0.6 % (0.0-0.0); Lymphocytes Absolute Auto 1.59 K/mm3 (1.10-4.50); Lymphocytes Percent Auto 14.5 % (18.0-42.0); Mean Corpuscular HGB Conc 29.5 g/dL (32.0-36.0); Mean Corpuscular Hemoglobin 23.4 pg (27.0-31.0); Mean Corpuscular Volume 79.3 fL (78.0-102.0); Mean Platelet Volume 9.4 fl (8.7-11.0); Monocytes Absolute Auto 1.41 K/mm3 (0.10-0.90); Monocytes Percent Auto 12.9 % (2.0-11.0); Neutrophils Absolute Auto 7.4 K/mm3 (1.7-7.2); Platelet Count Result 236 K/mm3 (150-420); Red Blood Count 3.97 M/mm3 (4.70-6.10); Red Cell Distribution Width 20.8 % (11.6-14.4)
[2023-02-10 05:49] LABS: INR 1.7; Partial Thromboplastin Time 35.6 SEC (23.90-30.70); Prothrombin Time 18.3 Seconds (9.50-12.10)
--- NOTE | 2023-02-10 05:50 | PC.NURSE ---
Pt up to BR to urinate, pt incontinent on BR floor, noted bright red helen blood from tip of penis p urinating, pt c/o some difficulty c urination and pain and burning. Charge nurse notified, call placed to [facility].
[2023-02-10 05:53] LABS: Alanine Aminotransferase 31 U/L (16-63); Albumin Level 3.2 g/dL (3.4-5.0); Alkaline Phosphatase 168 U/L (46-116); Anion Gap 5 mmol/L (8-16); Aspartate Amino Transferase 25 U/L (15-37); Bilirubin,Total 1.1 mg/dL (0.00-1.00); Blood Urea Nitrogen 51 mg/dL (7-18); Calcium 9.5 mg/dL (8.5-10.1); Carbon Dioxide 36 mmol/L (21-32); Chloride 91 mmol/L (98-108); Estimated CRCL calculation 30 ml/min; Estimated Glomerular Filt Rate 29; Glucose 241 mg/dL (70-99); Osmolality Calculated 295 mOsm/kg (285-295); Potassium 3.6 mmol/L (3.5-5.1); Sodium 132 mmol/L (136-145); Total Protein 8.4 g/dL (6.4-8.2)
[2023-02-10 07:42] LABS: Glucose Point of Care 228 mg/dl (65-105)
[2023-02-10 08:00] VITALS: BP 118/77; PULSE 84; RESP 16; TEMP 36.4; O2SAT 96
[2023-02-10] MEDS: EMPAGLIFLOZIN 10 MG TABLET 25 MG BY MOUTH (08:47)
[2023-02-10] MEDS: FLUTICASONE PROPIONATE 0.05% NA SPR 16 GM BTL (*BKC) 2 SPRAY NASAL (08:48)
[2023-02-10 08:49] VITALS: PULSE 84
[2023-02-10] MEDS: carvediloL 3.125 MG TABLET PO ×2 (08:49→20:38)
[2023-02-10] MEDS: glipiZIDE XL 5 MG TABCR PO (08:50)
[2023-02-10] MEDS: FUROSEMIDE 40 MG TABLET PO ×2 (08:50→17:00)
[2023-02-10] MEDS: ASPIRIN 81 MG CHEWABLE TABLET PO (08:50)
[2023-02-10] MEDS: SPIRONOLACTONE 25 MG TABLET PO (08:50)
[2023-02-10] MEDS: metOLazone 2.5 MG TABLET PO (08:51)
[2023-02-10] MEDS: PANTOPRAZOLE 40 MG TABLET PO (08:51)
[2023-02-10] MEDS: SERTRALINE HCL 50 MG TABLET PO (08:51)
[2023-02-10] MEDS: allopurinoL 300 MG TABLET PO (08:52)
[2023-02-10] MEDS: methocarbamoL 500 MG TABLET PO ×3 (08:52→17:00)
[2023-02-10] MEDS: FLUTICASONE/UMECLIDIN/VILANTER 100-62.5-25 MCG ELLIPTA 1 PUFF INHALATION (08:52)
[2023-02-10] MEDS: LIDOCAINE 5% PATCH 1 PATCH TRANSDERM (08:53)
[2023-02-10] MEDS: MUPIROCIN 2% OINT 22 GM TUBE 1 APPLIC TOPICAL ×2 (08:54→17:00)
[2023-02-10] MEDS: HYDROcodone/acetaminophen (*CRX) 5-325 MG TABLET 1 TAB PO ×2 (08:55→16:58)
[2023-02-10] MEDS: INSULIN HUMAN LISPRO (*BKC) 1,000 UNITS/10 ML VIAL SUB-Q ×3 (08:57→17:20)
[2023-02-10] MEDS: GABAPENTIN 400 MG CAPSULE PO (09:01)
--- NOTE | 2023-02-10 09:01 | PM.IMHP ---
H&P: HPI History of Present Illness Date/Time: 02/10/23 09:01 Chief Complaint: rehab, Rib Fracture, Diabetes Narrative: 67 years old male with past medical history of CAD, COPD, aortic stenosis status post bioprosthetic AVR 2013, type 2 diabetes, A-fib on warfarin, chronic systolic/diastolic CHF, severe pulmonary hypertension, hypertension, hyperlipidemia, CKD stage IV baseline creatinine 1.5-2, CVA, gout, cervical spine disease pending surgery, hypothalamic lipoma admitted 02/06/2023 due to right-sided rib fractures from mechanical fall. Patient had blood given on 02/07/2023 we will continue to monitor his HGB as he has come for rehab PT/OT. Patient last night had some bleeding from his penile area according to patient this has happened before he is able to urinate without any difficulties. Patient pickard not seen urology in years. Urine sent down which is pending. Patient denies any pain with urination we will continue to monitor labs and his urine. Review of Systems Review of Systems: head laceration, Rib fracture, Weakness All systems reviewed & are unremarkable except as noted in HPI and below PMFSH Past Medical History Medical History (Updated 02/10/23 @ 12:23 by Sukhwinder Husain NP) Acute on chronic anemia Afib CAD (coronary artery disease) CKD (chronic kidney disease) Congestive heart failure COPD (chronic obstructive pulmonary disease) Depression Diabetes mellitus Diabetic neuropathy Gout Hyperlipidemia Right rib fracture Surgical History Surgical History Cardiac catheterization as the cause of abnormal reaction of the patient, or of later complication, without mention of misadventure at the time of the procedure Status post mechanical aortic valve replacement Family History Family History Other Unknown family medical history Social History Social History Smoking status: Never smoker Second hand tobacco smoke exposure: Yes Smoking end date: 09/02/1967 Alcohol intake: never Drinks per week: 1 Substance use: never Substance use type: painkillers Lack of Transportation: No Lack of Food: Never True Current Housing: I Have Housing Concerned About Future Housing: No Difficulty Paying Gas/Electric Bills: No Difficulty Paying for Meds: No Currently Unemployed: No Education: High School Diploma/GED Difficulty w/ Childcare or Family Care: No Gender identity (if verbalized by the patient): Male Sexual Orientation (if Verbalized by the Patient): Straight or Heterosexual Spiritual care concerns: No Meds Home Medications and Allergies Home Medications Medication Instructions Recorded Confirmed Type albuterol sulfate 90 mcg/actuation 1 puff inhalation Q4-6H PRN 07/03/20 02/09/23 History aerosol inhaler (Ventolin HFA) Shortness Of Breath allopurinol 300 mg tablet 300 mg PO DAILY 07/03/20 02/09/23 History aspirin 81 mg tablet 81 mg PO DAILY 07/03/20 02/09/23 History atorvastatin 80 mg tablet 80 mg PO HS 07/03/20 02/09/23 History furosemide 40 mg tablet 40 mg PO BID 07/03/20 02/09/23 History gabapentin 100 mg capsule 400 mg PO DAILY 07/03/20 02/09/23 History glipizide 5 mg tablet, extended 5 mg PO DAILY 07/03/20 02/09/23 History release 24 hr pantoprazole 40 mg tablet,delayed 40 mg PO DAILY 07/03/20 02/09/23 History release sertraline 50 mg tablet 50 mg PO DAILY 07/03/20 02/09/23 History ropinirole 2 mg tablet 4 mg PO HS 01/31/22 02/09/23 History docusate sodium 100 mg capsule 100 mg PO DAILY PRN Constipation 02/01/22 02/09/23 History carvedilol 3.125 mg tablet (Coreg) 3.125 mg PO Q12HR 30 days #60 tabs 02/11/22 02/09/23 Rx camphor-menthol 0.5 %-0.5 % lotion 1 applic topical BID 02/09/23 02/09/23 History (Nimco Original) camphor-menthol 0.5 %-0.5 % lotion 1 applic topical BID 02/09/23
[2023-02-10 09:37] LABS: Appearance Urine Clear (Clear); Bilirubin Urine Negative (Negative); Blood Urine 2+ (Negative); Color Urine Light Yellow (Yellow); Glucose Urine UA 3+ (Negative); Ketones Urine Negative (Negative); Leukocyte Esterase Ur Negative (Negative); Nitrate Urine Negative (Negative); Protein Urine Negative (Negative); Urobilinogen Urine 0.2 mg/dL (0.2-1.0)
[2023-02-10 09:48] LABS: Add Urine Microscopic? YES; Bacteria Urine Trace /hpf; RBC Urine 21-50 /hpf (0-2); Squamous Epithelial Cell Urine Rare /hpf (Few); WBC Urine None seen /hpf (0-3)
[2023-02-10] MEDS: ACETAMINOPHEN 500 MG TABLET 1000 MG PO ×2 (11:43→19:45)
[2023-02-10 11:46] LABS: Glucose Point of Care 257 mg/dl (65-105)
[2023-02-10 15:09] LABS: Hemoglobin 9.8 g/dL (12.4-15.3)
[2023-02-10 16:00] VITALS: BP 131/69; PULSE 82; RESP 16; TEMP 36.6; O2SAT 99
[2023-02-10] MEDS: WARFARIN (*PBKC) 1 MG TABLET PO (17:00)
[2023-02-10] MEDS: WARFARIN (*PBKC) 5 MG TABLET PO (17:00)
[2023-02-10 17:04] LABS: Glucose Point of Care 286 mg/dl (65-105)
[2023-02-10 20:38] VITALS: PULSE 85
[2023-02-10] MEDS: ATORVASTATIN 40 MG TABLET 80 MG PO (20:38)
[2023-02-10] MEDS: rOPINIRole HCL 1 MG TABLET 4 MG PO (20:38)
[2023-02-10] MEDS: INSULIN GLARGINE (*BKC) 1,000 UNITS/10 ML VIAL 15 UNITS SUB-Q (20:39)
[2023-02-10] MEDS: GABAPENTIN 400 MG CAPSULE 800 MG PO (20:39)
[2023-02-10 20:57] LABS: Glucose Point of Care 265 mg/dl (65-105)
[2023-02-10 23:01] VITALS: BP 101/66; PULSE 85; RESP 17; TEMP 36.2; O2SAT 94
[2023-02-10 23:07] LABS: Hemoglobin 10.4 g/dL (12.4-15.3)
[2023-02-11] MEDS: HYDROcodone/acetaminophen (*CRX) 5-325 MG TABLET 1 TAB PO ×3 (01:21→19:52)
[2023-02-11] MEDS: clonazePAM (*CRX) 0.5 MG TABLET 1 MG PO ×2 (01:21→20:44)
[2023-02-11 08:00] VITALS: BP 108/70; PULSE 78; RESP 17; TEMP 36.3; O2SAT 95
[2023-02-11 08:02] LABS: Glucose Point of Care 217 mg/dl (65-105)
[2023-02-11] MEDS: INSULIN HUMAN LISPRO (*BKC) 1,000 UNITS/10 ML VIAL SUB-Q ×3 (09:00→17:15)
[2023-02-11] MEDS: MUPIROCIN 2% OINT 22 GM TUBE 1 APPLIC TOPICAL ×2 (09:01→17:14)
[2023-02-11] MEDS: FLUTICASONE PROPIONATE 0.05% NA SPR 16 GM BTL (*BKC) 2 SPRAY NASAL (09:01)
[2023-02-11] MEDS: EMPAGLIFLOZIN 10 MG TABLET 25 MG BY MOUTH (09:01)
[2023-02-11] MEDS: LIDOCAINE 5% PATCH 1 PATCH TRANSDERM (09:01)
[2023-02-11] MEDS: allopurinoL 300 MG TABLET PO (09:02)
[2023-02-11] MEDS: PANTOPRAZOLE 40 MG TABLET PO (09:02)
[2023-02-11] MEDS: FUROSEMIDE 40 MG TABLET PO ×2 (09:02→17:14)
[2023-02-11] MEDS: GABAPENTIN 400 MG CAPSULE PO (09:02)
[2023-02-11 09:03] VITALS: PULSE 80
[2023-02-11] MEDS: FLUTICASONE/UMECLIDIN/VILANTER 100-62.5-25 MCG ELLIPTA 1 PUFF INHALATION (09:03)
[2023-02-11] MEDS: methocarbamoL 500 MG TABLET PO ×3 (09:03→17:13)
[2023-02-11] MEDS: ASPIRIN 81 MG CHEWABLE TABLET PO (09:03)
[2023-02-11] MEDS: carvediloL 3.125 MG TABLET PO ×2 (09:03→20:44)
[2023-02-11] MEDS: metOLazone 2.5 MG TABLET PO (09:03)
[2023-02-11] MEDS: SPIRONOLACTONE 25 MG TABLET PO (09:03)
[2023-02-11] MEDS: SERTRALINE HCL 50 MG TABLET PO (09:03)
[2023-02-11 10:44] LABS: INR 1.8; Prothrombin Time 18.6 Seconds (9.50-12.10)
--- NOTE | 2023-02-11 12:25 | P.PNCROSS_ITS ---
Event Note Event Note Event Note: Patient hgb continue to increase and his bleeding from his Penis has stopped. P atient INR today is 1.8 we will continue 6mg of Coumadin
--- NOTE | 2023-02-11 12:25 | PM.EVENT ---
Event Note Event Note Event Note: Patient hgb continue to increase and his bleeding from his Penis has stopped. Patient INR today is 1.8 we will continue 6mg of Coumadin
[2023-02-11 16:00] VITALS: BP 110/68; PULSE 94; RESP 17; TEMP 35.9; O2SAT 94
[2023-02-11 17:06] LABS: Glucose Point of Care 223 mg/dl (65-105)
[2023-02-11 17:06] LABS: Glucose Point of Care 261 mg/dl (65-105)
[2023-02-11] MEDS: WARFARIN (*PBKC) 5 MG TABLET PO (17:14)
[2023-02-11] MEDS: WARFARIN (*PBKC) 1 MG TABLET PO (17:14)
[2023-02-11 20:44] VITALS: PULSE 92
[2023-02-11] MEDS: GABAPENTIN 400 MG CAPSULE 800 MG PO (20:44)
[2023-02-11] MEDS: rOPINIRole HCL 1 MG TABLET 4 MG PO (20:44)
[2023-02-11] MEDS: ATORVASTATIN 40 MG TABLET 80 MG PO (20:44)
[2023-02-11] MEDS: INSULIN GLARGINE (*BKC) 1,000 UNITS/10 ML VIAL 15 UNITS SUB-Q (20:45)
[2023-02-11 20:48] LABS: Glucose Point of Care 434 mg/dl (65-105)
[2023-02-11 23:02] VITALS: BP 101/62; PULSE 92; RESP 14; TEMP 36.4; O2SAT 94
[2023-02-11] MEDS: ACETAMINOPHEN 500 MG TABLET 1000 MG PO (23:38)
--- NOTE | 2023-02-12 00:41 | PC.NURSE ---
Pt has dime size bump on L calf. Pt denies itchiness on lump, but does have pain w/pressure is applied to area.
[2023-02-12] MEDS: HYDROcodone/acetaminophen (*CRX) 5-325 MG TABLET 1 TAB PO ×3 (04:59→21:44)
[2023-02-12 05:50] LABS: INR 1.7; Prothrombin Time 18.2 Seconds (9.50-12.10)
[2023-02-12 08:00] VITALS: BP 110/64; PULSE 88; RESP 17; TEMP 36.6; O2SAT 96
[2023-02-12 08:08] LABS: Glucose Point of Care 380 mg/dl (65-105)
[2023-02-12] MEDS: LIDOCAINE 5% PATCH 1 PATCH TRANSDERM (09:11)
[2023-02-12] MEDS: MUPIROCIN 2% OINT 22 GM TUBE 1 APPLIC TOPICAL ×2 (09:11→17:20)
[2023-02-12] MEDS: INSULIN HUMAN LISPRO (*BKC) 1,000 UNITS/10 ML VIAL SUB-Q ×3 (09:11→17:19)
[2023-02-12] MEDS: FLUTICASONE/UMECLIDIN/VILANTER 100-62.5-25 MCG ELLIPTA 1 PUFF INHALATION (09:11)
[2023-02-12] MEDS: FLUTICASONE PROPIONATE 0.05% NA SPR 16 GM BTL (*BKC) 2 SPRAY NASAL (09:11)
[2023-02-12 09:12] VITALS: PULSE 84
[2023-02-12] MEDS: GABAPENTIN 400 MG CAPSULE PO (09:12)
[2023-02-12] MEDS: SERTRALINE HCL 50 MG TABLET PO (09:12)
[2023-02-12] MEDS: carvediloL 3.125 MG TABLET PO ×2 (09:12→21:45)
[2023-02-12] MEDS: methocarbamoL 500 MG TABLET PO ×3 (09:12→17:19)
[2023-02-12] MEDS: ASPIRIN 81 MG CHEWABLE TABLET PO (09:12)
[2023-02-12] MEDS: PANTOPRAZOLE 40 MG TABLET PO (09:12)
[2023-02-12] MEDS: metOLazone 2.5 MG TABLET PO (09:12)
[2023-02-12] MEDS: FUROSEMIDE 40 MG TABLET PO ×2 (09:12→17:19)
[2023-02-12] MEDS: EMPAGLIFLOZIN 25 MG TABLET PO (09:12)
[2023-02-12] MEDS: allopurinoL 300 MG TABLET PO (09:12)
[2023-02-12] MEDS: SPIRONOLACTONE 25 MG TABLET PO (09:12)
--- NOTE | 2023-02-12 10:45 | P.PNCROSS_ITS ---
Event Note Event Note Event Note: Patient INR remain 1.7 we will continue with coumadin 6mg and recheck INR tompresley ramirez
[2023-02-12 11:49] LABS: Glucose Point of Care 304 mg/dl (65-105)
[2023-02-12 16:00] VITALS: BP 119/82; PULSE 86; RESP 18; TEMP 36.1; O2SAT 93
[2023-02-12 17:13] LABS: Glucose Point of Care 255 mg/dl (65-105)
[2023-02-12] MEDS: WARFARIN (*PBKC) 1 MG TABLET PO (17:19)
[2023-02-12] MEDS: WARFARIN (*PBKC) 5 MG TABLET PO (17:20)
[2023-02-12 21:45] VITALS: PULSE 88
[2023-02-12] MEDS: traZODone HCL 50 MG TABLET 200 MG PO (21:45)
[2023-02-12] MEDS: GABAPENTIN 400 MG CAPSULE 800 MG PO (21:45)
[2023-02-12] MEDS: rOPINIRole HCL 1 MG TABLET 4 MG PO (21:45)
[2023-02-12] MEDS: ATORVASTATIN 40 MG TABLET 80 MG PO (21:46)
[2023-02-12 21:57] LABS: Glucose Point of Care 391 mg/dl (65-105)
[2023-02-12] MEDS: INSULIN GLARGINE (*BKC) 1,000 UNITS/10 ML VIAL 15 UNITS SUB-Q (21:58)
[2023-02-13] VITALS: BP 112/68; PULSE 88; RESP 18; TEMP 36.6; O2SAT 91
[2023-02-13] MEDS: HYDROcodone/acetaminophen (*CRX) 5-325 MG TABLET 1 TAB PO ×2 (03:45→09:56)
[2023-02-13 08:00] VITALS: BP 93/64; PULSE 76; RESP 16; TEMP 36.2; O2SAT 99
[2023-02-13 08:03] LABS: Glucose Point of Care 393 mg/dl (65-105)
[2023-02-13] MEDS: INSULIN HUMAN LISPRO (*BKC) 1,000 UNITS/10 ML VIAL SUB-Q ×2 (08:48→12:18)
[2023-02-13] MEDS: allopurinoL 300 MG TABLET PO (08:50)
[2023-02-13] MEDS: FUROSEMIDE 40 MG TABLET PO (08:50)
[2023-02-13] MEDS: ASPIRIN 81 MG CHEWABLE TABLET PO (08:50)
[2023-02-13] MEDS: SPIRONOLACTONE 25 MG TABLET PO (08:50)
[2023-02-13] MEDS: SERTRALINE HCL 50 MG TABLET PO (08:50)
[2023-02-13 08:51] VITALS: PULSE 76
[2023-02-13] MEDS: metOLazone 2.5 MG TABLET PO (08:51)
[2023-02-13] MEDS: methocarbamoL 500 MG TABLET PO ×2 (08:51→12:20)
[2023-02-13] MEDS: PANTOPRAZOLE 40 MG TABLET PO (08:51)
[2023-02-13] MEDS: carvediloL 3.125 MG TABLET PO (08:51)
[2023-02-13] MEDS: FLUTICASONE PROPIONATE 0.05% NA SPR 16 GM BTL (*BKC) 2 SPRAY NASAL (08:52)
[2023-02-13] MEDS: GABAPENTIN 400 MG CAPSULE PO (08:52)
[2023-02-13] MEDS: EMPAGLIFLOZIN 25 MG TABLET PO (08:53)
[2023-02-13] MEDS: MUPIROCIN 2% OINT 22 GM TUBE 1 APPLIC TOPICAL (08:54)
[2023-02-13] MEDS: FLUTICASONE/UMECLIDIN/VILANTER 100-62.5-25 MCG ELLIPTA 1 PUFF INHALATION (08:54)
[2023-02-13] MEDS: LIDOCAINE 5% PATCH 1 PATCH TRANSDERM (08:55)
[2023-02-13 09:28] LABS: Prothrombin Time 20.4 Seconds (9.50-12.10)
--- NOTE | 2023-02-13 10:16 | PM.DS ---
DS: Admitting Diagnosis Discharge Date 02/13/2023 Admitting Diagnosis Acute Rib Fractures DS: Discharge Diagnosis Discharge Diagnosis (1) Right rib fracture: Code(s): S22.31XA - Fracture of one rib, right side, initial encounter for closed fracture Status: Acute Assessment and Plan: -X-ray: Anterior right?5/6?and lateral 7?rib buckling. Old rib fractures are seen on the right and left. PT/OT for safety, has made good progress. (2) Congestive heart failure: Code(s): I50.9 - Heart failure, unspecified Status: Chronic Assessment and Plan: -Echocardiogram 12/29/22: EF 37%, grade 2 diastolic dysfunction, mild LVH, moderately depressed RV function -Still has lower extremity edema up to thighs. Continue Lasix 40 mg BID along with oral metolazone 2.5 mg daily. Continues to diurese well. -Sodium 131, advised fluid restriction 1.5 L in 24 hours. BMP in 2 to 3 days to follow-up on sodium and kidney function ? (3) Essential hypertension: Code(s): I10 - Essential (primary) hypertension Status: Chronic Assessment and Plan: - Stable. Continue to monitor. (4) CAD (coronary artery disease): Code(s): I25.10 - Atherosclerotic heart disease of [place] coronary artery without angina pectoris Status: Chronic (5) Afib: Code(s): I48.91 - Unspecified atrial fibrillation Status: Chronic Assessment and Plan: Coreg 3.125 mg twice daily, on Coumadin with therapeutic INR. continue warfarin 5.5 mg daily will change him to Warfarin 6mg - INR today at discharge is 2.0. Continue current dose of Coumadin with INR check in two days. (6) COPD (chronic obstructive pulmonary disease): Code(s): J44.9 - Chronic obstructive pulmonary disease, unspecified Status: Chronic Assessment and Plan: Severe pulmonary hypertension -Continue home bronchodilators. (7) CKD (chronic kidney disease): Code(s): N18.9 - Chronic kidney disease, unspecified Status: Chronic Assessment and Plan: Creatinine slightly elevated 2.27 repeat BMP in the next 1 week (8) Acute on chronic anemia: Code(s): D64.9 - Anemia, unspecified Status: Chronic Assessment and Plan: Baseline hemoglobin 8-9, status post 1 packed RBC on 02/07/2023 for hemoglobin of 7.3. Hemoglobin is 8.6 prior to discharge. - Acute anemia is resolved prior to discharge. DS: Summary Hospital Course Reason for hospitalization: Rehabilitation in the setting of right rib fractures. Hospital Course: This 67 years old male with past medical history of CAD, COPD, aortic stenosis status post bioprosthetic AVR 2013, type 2 diabetes, A-fib on warfarin, chronic systolic/diastolic CHF, severe pulmonary hypertension, hypertension, hyperlipidemia, CKD stage IV baseline creatinine 1.5-2, CVA, gout, cervical spine disease pending surgery, and hypothalamic lipoma was admitted to [facility] on 02/06/2023 after he suffered right-sided rib fractures from a ground level mechanical fall.?His hospitalization was significant for an acute on chronic anemia with his baseline Hgb between 8-9, but presenting was 7.6. Pt. had some bleeding per penis that he states he occasionally has, but has not seen a Urologist in years. Urinalysis was significant for microscopic blood, but gross bleeding has stopped. His INR has remained in a normotherapeutic level during his hospitalization and his Hgb has resolved to >8, placing him at his baseline. It will be recommended that he follow up with his PCP for referral back to Urology on discharge. His pain has been well controlled and his overall SWB admission has been benign with him working well with PT services. He will be discharged home with PT today. Status at Discharge Cognitive/behavioral status at discharge: At baseline. Functional status at discharge: uses cane/walker Overall status at discharge: patient is back to baseline Time Spent with Patient T
[2023-02-13 11:50] LABS: Glucose Point of Care 419 mg/dl (65-105)
[2023-02-13] MEDS: INSULIN HUMAN LISPRO (*BKC) 1,000 UNITS/10 ML VIAL 1 UNITS SUB-Q (12:50)
--- NOTE | 2023-02-13 13:25 | PC.NURSE ---
Discharge instructions given to patient, and Bonnie, Patient's daughter. Bonnie voiced understanding. Patient left unit accompanied by senior underwriter, in w/c and left hospital property in privately owned vehicle. Personal belongings sent home with patient.
--- NOTE | 2023-02-15 11:09 | PC.NURSE ---
Pt states he received and understood his discharge instructions. Pt also states his care was good and the food was great .
== END 2023-02-13 13:25 | disposition home health service (06) | DRG 560 ==
PROVIDERS: Nurse Practitioner; Nurse Practitioner Adult Health; Nurse Practitioner Family; Admitting Provider Internal Medicine; PCP Family Medicine; Visit Provider Internal Medicine
DX: S22.41XD Multiple fractures of ribs, right side, subsequent encounter for fracture with routine healing (principal); I13.0 Hypertensive heart and chronic kidney disease with heart failure and stage 1 through stage 4 chronic kidney disease, or unspecified chronic kidney disease; N18.4 Chronic kidney disease, stage 4 (severe); I50.42 Chronic combined systolic (congestive) and diastolic (congestive) heart failure; I48.20 Chronic atrial fibrillation, unspecified; I25.10 Atherosclerotic heart disease of native coronary artery without angina pectoris; J44.9 Chronic obstructive pulmonary disease, unspecified; E11.22 Type 2 diabetes mellitus with diabetic chronic kidney disease; E11.40 Type 2 diabetes mellitus with diabetic neuropathy, unspecified; E78.5 Hyperlipidemia, unspecified; D64.9 Anemia, unspecified; F32.A Depression, unspecified; W19.XXXD Unspecified fall, subsequent encounter; Z79.01 Long term (current) use of anticoagulants; Z95.4 Presence of other heart-valve replacement; Z86.73 Personal history of transient ischemic attack (TIA), and cerebral infarction without residual deficits; Z79.82 Long term (current) use of aspirin; Z79.4 Long term (current) use of insulin; I27.20 Pulmonary hypertension, unspecified
CPT/HCPCS: 36415; 80053; 81001; 82948; 83735; 85014; 85018; 85025; 85027; 85610; 85730; 97110; 97161; 97165; 97530; 97535; A9270; J1815

== ENCOUNTER 2023-02-15 22:41 | Emergency (ER) | payer MEDICARE, OTHER, SELFPAY ==
--- NOTE | ~2023-02-15 | CT_ITS ---
Non-contrast Head CT History: Status post fall COMPARISON: 01/31/2022 Technique: Axial non-contrast imaging of the brain was performed. Dose reduction technique was used on this scan by utilizing automated exposure control and iterative reconstruction technique. The dose -length product (DLP) was 1362.00 mGy-cm. Findings: There is no evidence of intracranial hemorrhage, mass lesion, or acute infarct. Stable pro bable encephalomalacia at the anterior left temporal lobe. The ventricles and subarachnoid spaces ar e normal in size. The calvarium appears normal. The visualized paranasal sinuses and mastoid air ce lls are clear. Impression: No acute abnormality seen. Stable probable chronic encephalomalacia at the anterior left temporal lobe. Reviewed, dictated and finalized at [facility]. Impression: No acute abnormality seen. Stable probable chronic encephalomalacia at the anterior left temporal lobe.
--- NOTE | ~2023-02-15 | CT_ITS ---
Noncontrast CT scan of the cervical spine Technique: Multiple contiguous axial [address] images of the cervical spine were obtained and rec onstructed in 2D sagittal and coronal planes on the acquisition scanner. Dose reduction technique was used on this scan by utilizing automated exposure control, adjustment of the mA and/or kV according to patient size. The dose-length product (DLP) was 1362.00 mGy-cm. Clinical History: Pain Findings: No fractures or dislocations. There are extensive anterior marginal osteophytes from C3 th rough the visualized upper thoracic spine. There is moderate degenerative disc narrowing at C5-C6 and C6-C7. There is mild degenerative disc narrowing at the remaining cervical levels. There is mild rig ht neural foraminal narrowing at C2-C3, mild facet arthropathy. No prevertebral soft tissue swelling. Impression: No fracture or subluxation of the cervical spine. Extensive DISH, and mild additional degenerative changes, as above. Reviewed, dictated and finalized at [facility]. Impression: No fracture or subluxation of the cervical spine. Extensive DISH, and mild additional degenerative changes, as above.
--- NOTE | ~2023-02-15 | XR_ITS ---
Portable chest x-ray Comparison: 12/17/2022 Clinical History: Altered mental status Findings: Lungs are clear, without focal consolidation or pleural effusion. Cardiomediastinal silho uette is stable, status post median sternotomy. Bones and soft tissues are unremarkable. Impression: Clear lungs. Reviewed, dictated and finalized at location . Impression: Clear lungs.
[2023-02-15 22:45] VITALS: PULSE 872; O2SAT 95
[2023-02-15 22:46] VITALS: BP 129/69; PULSE 93; RESP 16; TEMP 36.4; O2SAT 95
--- NOTE | 2023-02-15 22:53 | ECG_ITS ---
Measurements Intervals Combs Rate: 87 P: 138 MN: 237 QRS: -32 QRSD: 152 T: 124 QT: 429 QTc: 519 Interpretive Statements SINUS RHYTHM WITH FIRST DEGREE AV BLOCK LEFT AXIS DEVIATION [QRS AXIS < -30] LEFT BUNDLE BRANCH BLOCK [120+ ms QRS DURATION, 80+ ms Q/S IN V1/V2, 85+ ms R IN I/aVL/V5/V6] ABNORMAL ECG Electronically Signed On 02-17-2023 11:49:35 CDT by Misael Courtney M.D.
--- NOTE | 2023-02-15 22:55 | ED.GENADULT ---
HPI - General Adult General Chief complaint: Unspecified Stated complaint: Fall Time Seen by Provider: 02/15/23 22:50 History of Present Illness HPI narrative: 67yo man history of diabetes, chf, copd, ckd, chronic anemia, on warfarin (last INR 1.8) brought by his family with concern for two falls in the last 12 hours and a general malaise and fatigue, which they describe as lethargy (pt here is awake, alert, and fully oriented). They were also alarmed by rising blood glucose of 400 yesterday and 500 today despite pt taking his glipizide and levemir. Has scabbed contusions to his right forehead and right knee. Pt denies any pain, fever, cough, shortness of breath, nausea, diarrhea, dysuria, or joint swelling. Pt has Gabapentin, [place], Ropinirole, and Trazodone on his med list. Related Data Home Medications Medication Instructions Recorded Confirmed albuterol sulfate 90 mcg/actuation 1 puff inhalation Q4-6H PRN 07/03/20 02/15/23 aerosol inhaler (Ventolin HFA) Shortness Of Breath allopurinol 300 mg tablet 300 mg PO DAILY 07/03/20 02/15/23 aspirin 81 mg tablet 81 mg PO DAILY 07/03/20 02/15/23 atorvastatin 80 mg tablet 80 mg PO HS 07/03/20 02/15/23 furosemide 40 mg tablet 40 mg PO BID 07/03/20 02/15/23 gabapentin 100 mg capsule 400 mg PO DAILY 07/03/20 02/15/23 glipizide 5 mg tablet, extended 5 mg PO DAILY 07/03/20 02/15/23 release 24 hr pantoprazole 40 mg tablet,delayed 40 mg PO DAILY 07/03/20 02/15/23 release sertraline 50 mg tablet 50 mg PO DAILY 07/03/20 02/15/23 ropinirole 2 mg tablet 4 mg PO HS 01/31/22 02/15/23 docusate sodium 100 mg capsule 100 mg PO DAILY PRN Constipation 02/01/22 02/15/23 camphor-menthol 0.5 %-0.5 % lotion 1 applic topical BID 02/09/23 02/15/23 (Nimco Original) empagliflozin 25 mg tablet 25 mg PO DAILY 02/09/23 02/15/23 (Jardiance) fluticasone fur. 100 mcg-umeclid 1 inh inhalation DAILY 02/09/23 02/15/23 62.5 mcg-vilant 25 mcg inhalat.powder (Trelegy Ellipta) gabapentin 100 mg tablet 800 mg PO HS 02/09/23 02/15/23 hydrocodone 7.5 mg-acetaminophen 1 tablet PO Q8H PRN Pain, Moderate 02/09/23 02/15/23 325 mg tablet hydroxyzine HCl 50 mg tablet 50 mg PO TID PRN itch 02/09/23 02/15/23 insulin detemir U-100 100 unit/mL 15 unit subcut HS 02/09/23 02/15/23 (3 mL) subcutaneous pen (Levemir FlexPen) methocarbamol 500 mg tablet 500 mg PO TID 02/09/23 02/15/23 metolazone 2.5 mg tablet 2.5 mg PO DAILY 02/09/23 02/15/23 mupirocin 2 % topical ointment 1 applic topical BID 02/09/23 02/15/23 spironolactone 25 mg tablet 25 mg PO DAILY 02/09/23 02/15/23 trazodone 100 mg tablet 200 mg PO HS PRN insomnia 02/09/23 02/15/23 warfarin 5 mg tablet 5 mg PO DAILY 02/09/23 02/15/23 Allergies Allergy/AdvReac Type Severity Reaction Status Date / Time No Known Allergies Allergy Verified 02/10/22 08:22 Review of Systems Review of Systems: All systems reviewed & are unremarkable except as noted in HPI and below Constitutional: Constitutional: Denies chills and Denies fever(s) ENT: Denies dysphagia and Denies dizziness Cardiovascular: Cardiovascular: Denies chest pain Respiratory: Respiratory: Denies cough and Denies dyspnea Gastrointestinal: Gastrointestinal: Denies abdominal pain, Denies diarrhea, Denies nausea and Denies vomiting Genitourinary: Genitourinary: Denies dysuria Musculoskeletal: Musculoskeletal: Denies back pain, Denies arthralgias and Denies joint swelling Neurologic: Denies focal weakness and Denies numbness PMFSH Past Medical History Medical History Acute on chronic anemia Afib CAD (coronary artery disease) CKD (chronic kidney disease) Congestive heart failure COPD (chronic obstructive pulmonary disease) Depression Diabetes mellitus Diabetic neuropathy Encounter for monitoring Coumadin therapy Gout Hyperlipidemia Right rib fracture Surgical History Surgical History (Reviewed 02/15/23 @ 22:59 by Chadd
[2023-02-15 23:02] LABS: Basophils Absolute Auto 0.05 K/mm3 (0.00-0.10); Basophils Percent Auto 0.4 % (0.0-1.0); Eosinophils Absolute Auto 0.35 K/mm3 (0.02-0.50); Eosinophils Percent Auto 2.5 % (1.0-6.0); Hematocrit 35.1 % (37.0-46.0); Hemoglobin 10.3 g/dL (12.4-15.3); Immature Granulocyte Absolute 0.06 K/mm3 (0.00-0.00); Immature Granulocyte Percent A 0.4 % (0.0-0.0); Lymphocytes Percent Auto 7.3 % (18.0-42.0); Mean Corpuscular HGB Conc 29.3 g/dL (32.0-36.0); Mean Corpuscular Hemoglobin 24.2 pg (27.0-31.0); Mean Corpuscular Volume 82.6 fL (78.0-102.0); Mean Platelet Volume 10.3 fl (8.7-11.0); Monocytes Percent Auto 9.4 % (2.0-11.0); Platelet Count Result 214 K/mm3 (150-420); Red Blood Count 4.25 M/mm3 (4.70-6.10); Red Cell Distribution Width 20.7 % (11.6-14.4); White Blood Count 13.8 K/mm3 (4.8-10.8)
[2023-02-15 23:12] LABS: INR 1.6; Prothrombin Time 16.5 Seconds (9.50-12.10)
[2023-02-15 23:20] LABS: Lactic Acid Reflex 1.4 mmol/L (0.4-2.0)
[2023-02-15] MEDS: INSULIN HUMAN REGULAR (*BKC) 1,000 UNITS/10 ML VIAL 10 UNITS IV PUSH (23:20)
[2023-02-15 23:27] LABS: Alanine Aminotransferase 31 U/L (16-63); Albumin Level 3.5 g/dL (3.4-5.0); Alkaline Phosphatase 219 U/L (46-116); Anion Gap 11 mmol/L (8-16); Aspartate Amino Transferase 28 U/L (15-37); Bilirubin,Total 0.9 mg/dL (0.00-1.00); Blood Urea Nitrogen 81 mg/dL (7-18); Calcium 9.2 mg/dL (8.5-10.1); Carbon Dioxide 27 mmol/L (21-32); Chloride 85 mmol/L (98-108); Estimated CRCL calculation 31 ml/min; Estimated Glomerular Filt Rate 29; Magnesium 2.9 mg/dL (1.8-2.4); Potassium 4.2 mmol/L (3.5-5.1); Sodium 123 mmol/L (136-145); Total Protein 9.7 g/dL (6.4-8.2)
[2023-02-15] MEDS: SODIUM CHLORIDE 0.9% IV 1,000 ML 999 ML IV CONT (23:28)
[2023-02-15 23:30] LABS: Ethanol < 3 mg/dL (0-6); Glucose > 500 mg/dL (70-99); Osmolality Calculated 303 mOsm/kg (285-295); Troponin I 100.3 ng/L (0.00-60.4)
[2023-02-15 23:42] LABS: Appearance Urine Clear (Clear); Bilirubin Urine Negative (Negative); Blood Urine Negative (Negative); Color Urine Light Yellow (Yellow); Glucose Urine UA 3+ (Negative); Ketones Urine Negative (Negative); Leukocyte Esterase Ur Negative LEU/UL (Negative); Nitrate Urine Negative (Negative); Protein Urine Negative (Negative); Specific Grav Ur <= 1.005 (1.010-1.020); Urobilinogen Urine 0.2 mg/dL (0.2-1.0)
[2023-02-15 23:46] LABS: Add Urine Microscopic? YES
[2023-02-15 23:47] LABS: Bacteria Urine None seen /hpf; RBC Urine 0-2 /hpf (0-2); Squamous Epithelial Cell Urine None seen /hpf (Few); WBC Urine 0-3 /hpf (0-3)
--- NOTE | 2023-02-15 23:47 | PC.NURSE ---
Discussed test results c pt and his daughters. 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 Pt and daughter wish transfer to [facility].
[2023-02-15 23:48] LABS: Amphetamine Screen Urine Negative (Negative); Barbiturate Screen Urine Negative (Negative); Benzodiazepines Screen Urine Negative (Negative); Cannabinoid Screen Urine Negative (Negative); Cocaine Screen Urine Negative (Negative); Methadone Screen Urine Negative (Negative); Opiate Screen Urine Positive (Negative); Phencyclidine Screen Urine Negative (Negative)
[2023-02-15 23:51] VITALS: BP 133/83; PULSE 93; RESP 20; O2SAT 96
[2023-02-15 23:52] VITALS: PULSE 93; RESP 15; O2SAT 96
[2023-02-16] VITALS: PULSE 95; RESP 17
[2023-02-16] MEDS: ASPIRIN 81 MG CHEWABLE TABLET 324 MG PO
[2023-02-16] MEDS: INSULIN HUMAN REGULAR (*BKC) 1,000 UNITS/10 ML VIAL 10 UNITS IV PUSH (00:01)
[2023-02-16 00:04] VITALS: BP 106/70; PULSE 94; RESP 15; O2SAT 96
[2023-02-16] MEDS: SODIUM CHLORIDE 0.9% IV 1,000 ML 999 ML IV CONT (00:07)
[2023-02-16 00:30] VITALS: PULSE 93; RESP 18; O2SAT 99
[2023-02-16 00:40] LABS: Glucose Point of Care 381 mg/dl (65-105)
[2023-02-16] MEDS: MORPHINE SULFATE (*CRX) 4 MG/ML INJ IV PUSH (00:47)
[2023-02-16] MEDS: ONDANSETRON INJ 4 MG/2 ML VIAL IV PUSH (00:47)
[2023-02-16] MEDS: INSULIN GLARGINE (*BKC) 1,000 UNITS/10 ML VIAL 15 UNITS SUB-Q (00:53)
--- NOTE | 2023-02-16 01:00 | PC.NURSE ---
Pt sitting bedside, sipping on ice chips and water, watching TV at this time. Awaiting call back for bed assignment from [facility]. Pts VSS, monitor continues to show SR. Call dailey at pt side.
[2023-02-16 01:37] VITALS: BP 96/66; PULSE 86; RESP 18; TEMP 36.6; O2SAT 95
--- NOTE | 2023-02-22 12:42 | PC.NURSE ---
FINAL BLOOD CULTURES X2: NO GROWTH AFTER 5 DAYS.
[2023-02-25 12:38] LABS: Glucose Point of Care > 450 mg/dl (65-105)
== END 2023-02-16 02:03 | disposition short-term general hospital (02) ==
PROVIDERS: Emergency Provider Emergency Medicine; PCP Family Medicine
DX: R07.89 Other chest pain (principal); E86.0 Dehydration; S80.01XA Contusion of right knee, initial encounter; E11.65 Type 2 diabetes mellitus with hyperglycemia; S00.83XA Contusion of other part of head, initial encounter; R74.8 Abnormal levels of other serum enzymes; M25.512 Pain in left shoulder; I48.91 Unspecified atrial fibrillation; I25.10 Atherosclerotic heart disease of native coronary artery without angina pectoris; I13.0 Hypertensive heart and chronic kidney disease with heart failure and stage 1 through stage 4 chronic kidney disease, or unspecified chronic kidney disease; E11.22 Type 2 diabetes mellitus with diabetic chronic kidney disease; N18.9 Chronic kidney disease, unspecified; I50.9 Heart failure, unspecified; Z79.82 Long term (current) use of aspirin; Z79.4 Long term (current) use of insulin; Z79.01 Long term (current) use of anticoagulants; Z79.891 Long term (current) use of opiate analgesic; Z79.899 Other long term (current) drug therapy; W19.XXXA Unspecified fall, initial encounter
CPT/HCPCS: 36415; 70450; 71045; 72125; 80053; 80307; 81001; 82948; 83605; 83735; 84484; 85025; 85610; 87040; 93005; 96361; 96374; 96375; 99285; A9270; J1815; J2270; J2405; J7030

== ENCOUNTER 2023-03-26 13:24 | Outpatient (NON) | payer MEDICARE, SELFPAY ==
[2023-03-26 13:52] LABS: Hemoglobin A1C 7.6 % (<5.7)
== END 2023-03-26 13:25 | disposition home or self-care (01) ==
LOC: CHSLAB 13:27
PROVIDERS: Visit Provider Family Medicine
DX: E11.9 Type 2 diabetes mellitus without complications (principal)
CPT/HCPCS: 36415; 83036

== ENCOUNTER 2023-04-16 12:19 | Outpatient (NON) | payer MEDICARE, SELFPAY ==
[2023-04-16 12:57] LABS: Prostate Specific Antigen 1.7 ng/mL (< OR = 4.0)
== END 2023-04-16 12:20 | disposition home or self-care (01) ==
LOC: CHSLAB 12:21
PROVIDERS: Visit Provider Urology
DX: N40.2 Nodular prostate without lower urinary tract symptoms (principal)
CPT/HCPCS: 36415; 84153

== ENCOUNTER 2023-04-23 08:40 | Outpatient (NON) | payer MEDICARE, SELFPAY ==
[2023-04-23 09:12] LABS: Hematocrit 32.1 % (37.0-46.0); Hemoglobin 9.4 g/dL (12.4-15.3); Mean Corpuscular HGB Conc 29.3 g/dL (32.0-36.0); Mean Corpuscular Hemoglobin 24.1 pg (27.0-31.0); Mean Corpuscular Volume 82.3 fL (78.0-102.0); Mean Platelet Volume 10.8 fl (8.7-11.0); Platelet Count Result 188 K/mm3 (150-420); Red Cell Distribution Width 19.7 % (11.6-14.4); White Blood Count 9.3 K/mm3 (4.8-10.8)
[2023-04-23 09:21] LABS: Alanine Aminotransferase 26 U/L (16-63); Albumin Level 3.4 g/dL (3.4-5.0); Alkaline Phosphatase 122 U/L (46-116); Anion Gap 5 mmol/L (8-16); Aspartate Amino Transferase 21 U/L (15-37); Bilirubin,Total 0.5 mg/dL (0.00-1.00); Blood Urea Nitrogen 65 mg/dL (7-18); Calcium 9.3 mg/dL (8.5-10.1); Carbon Dioxide 34 mmol/L (21-32); Chloride 99 mmol/L (98-108); Estimated Glomerular Filt Rate 37; Glucose 70 mg/dL (70-99); Osmolality Calculated 302 mOsm/kg (285-295); Phosphorus 4.6 mg/dL (2.6-4.7); Potassium 4.2 mmol/L (3.5-5.1); Sodium 138 mmol/L (136-145)
[2023-04-23 09:22] LABS: Creatinine Urine 51.27 mg/dL (40-278); MALB Creatinine Ratio 25.3 mg/g (0-30); Microalbumin Urine Random < 13.0 mg/L
== END 2023-04-23 08:41 | disposition home or self-care (01) ==
LOC: CHSLAB 08:45
DX: N18.30 Chronic kidney disease, stage 3 unspecified (principal)
CPT/HCPCS: 36415; 80053; 82043; 84100; 85027

== ENCOUNTER 2023-04-29 11:34 | Outpatient (NON) | payer MEDICARE, SELFPAY ==
[2023-04-29 11:43] LABS: Appearance Urine Clear (Clear); Bilirubin Urine Negative (Negative); Blood Urine Negative (Negative); Color Urine Light Yellow (Yellow); Glucose Urine UA 3+ (Negative); Ketones Urine Negative (Negative); Leukocyte Esterase Ur Negative LEU/UL (Negative); Nitrate Urine Negative (Negative); Protein Urine Negative (Negative); Urobilinogen Urine 0.2 mg/dL (0.2-1.0)
[2023-04-29 11:49] LABS: Add Urine Microscopic? NO; Bacteria Urine None seen /hpf; RBC Urine None seen /hpf (0-2); WBC Urine None seen /hpf (0-3)
[2023-04-29 11:58] LABS: INR 1.5; Partial Thromboplastin Time 37.2 SEC (23.90-30.70); Prothrombin Time 15.6 Seconds (9.50-12.10)
== END 2023-04-29 11:35 | disposition home or self-care (01) ==
LOC: CHSLAB 11:35
PROVIDERS: Visit Provider Family Medicine
DX: Z01.818 Encounter for other preprocedural examination (principal); N18.9 Chronic kidney disease, unspecified
CPT/HCPCS: 36415; 81003; 85610; 85730

== ENCOUNTER 2023-06-01 13:53 | Outpatient (NON) | payer MEDICARE, SELFPAY ==
[2023-06-01 14:04] LABS: Basophils Absolute Auto 0.06 K/mm3 (0.00-0.10); Basophils Percent Auto 0.5 % (0.0-1.0); Eosinophils Absolute Auto 0.27 K/mm3 (0.02-0.50); Eosinophils Percent Auto 2.3 % (1.0-6.0); Hematocrit 33.8 % (37.0-46.0); Hemoglobin 9.7 g/dL (12.4-15.3); Immature Granulocyte Absolute 0.07 K/mm3 (0.00-0.00); Immature Granulocyte Percent A 0.6 % (0.0-0.0); Lymphocytes Absolute Auto 1.55 K/mm3 (1.10-4.50); Lymphocytes Percent Auto 13.5 % (18.0-42.0); Mean Corpuscular HGB Conc 28.7 g/dL (32.0-36.0); Mean Corpuscular Hemoglobin 22.1 pg (27.0-31.0); Mean Platelet Volume 10.7 fl (8.7-11.0); Monocytes Absolute Auto 1.32 K/mm3 (0.10-0.90); Monocytes Percent Auto 11.5 % (2.0-11.0); Neutrophils Absolute Auto 8.2 K/mm3 (1.7-7.2); Neutrophils Percent Auto 71.6 % (50.0-70.0); Platelet Count Result 237 K/mm3 (150-420); Red Blood Count 4.39 M/mm3 (4.70-6.10); Red Cell Distribution Width 18.7 % (11.6-14.4); White Blood Count 11.5 K/mm3 (4.8-10.8)
[2023-06-01 14:11] LABS: Creatinine Urine 23.89 mg/dL (40-278); MALB Creatinine Ratio 66.5 mg/g (0-30); Microalbumin Urine Random 15.9 mg/L
[2023-06-01 14:17] LABS: Albumin Level 3.4 g/dL (3.4-5.0); Anion Gap 11 mmol/L (8-16); Blood Urea Nitrogen 61 mg/dL (7-18); Calcium 9.1 mg/dL (8.5-10.1); Carbon Dioxide 28 mmol/L (21-32); Chloride 96 mmol/L (98-108); Estimated Glomerular Filt Rate 36; Glucose 209 mg/dL (70-99); Osmolality Calculated 303 mOsm/kg (285-295); Phosphorus 4.7 mg/dL (2.6-4.7); Potassium 4.4 mmol/L (3.5-5.1); Sodium 135 mmol/L (136-145)
== END 2023-06-01 13:54 | disposition home or self-care (01) ==
LOC: CHSLAB 13:54
PROVIDERS: Visit Provider Family Medicine
DX: I13.0 Hypertensive heart and chronic kidney disease with heart failure and stage 1 through stage 4 chronic kidney disease, or unspecified chronic kidney disease (principal)
CPT/HCPCS: 36415; 80069; 82043; 85025

== ENCOUNTER 2023-08-05 13:40 | Outpatient (CLI) | payer MEDICARE, SELFPAY ==
[2023-08-05 13:57] LABS: Basophils Absolute Auto 0.09 K/mm3 (0.00-0.10); Basophils Percent Auto 0.8 % (0.0-1.0); Eosinophils Absolute Auto 0.77 K/mm3 (0.02-0.50); Eosinophils Percent Auto 6.8 % (1.0-6.0); Hematocrit 34.9 % (37.0-46.0); Hemoglobin 9.4 g/dL (12.4-15.3); Immature Granulocyte Absolute 0.04 K/mm3 (0.00-0.00); Immature Granulocyte Percent A 0.4 % (0.0-0.0); Lymphocytes Percent Auto 21.3 % (18.0-42.0); Mean Corpuscular HGB Conc 26.9 g/dL (32.0-36.0); Mean Corpuscular Volume 81.7 fL (78.0-102.0); Mean Platelet Volume 9.7 fl (8.7-11.0); Monocytes Absolute Auto 1.39 K/mm3 (0.10-0.90); Monocytes Percent Auto 12.3 % (2.0-11.0); Neutrophils Absolute Auto 6.6 K/mm3 (1.7-7.2); Neutrophils Percent Auto 58.4 % (50.0-70.0); Platelet Count Result 330 K/mm3 (150-420); Red Blood Count 4.27 M/mm3 (4.70-6.10); White Blood Count 11.3 K/mm3 (4.8-10.8)
== END 2023-08-05 13:41 | disposition home or self-care (01) ==
LOC: CHSLAB 13:43
DX: D64.9 Anemia, unspecified (principal)
CPT/HCPCS: 36415; 85025

== ENCOUNTER 2023-11-16 10:01 | Outpatient (CLI) | payer MEDICARE, SELFPAY ==
[2023-11-16 10:24] LABS: Basophils Absolute Auto 0.05 K/mm3 (0.00-0.10); Basophils Percent Auto 0.6 % (0.0-1.0); Eosinophils Absolute Auto 0.46 K/mm3 (0.02-0.50); Eosinophils Percent Auto 5.6 % (1.0-6.0); Hematocrit 40.6 % (37.0-46.0); Hemoglobin 12.4 g/dL (12.4-15.3); Immature Granulocyte Absolute 0.03 K/mm3 (0.00-0.00); Immature Granulocyte Percent A 0.4 % (0.0-0.0); Lymphocytes Percent Auto 17.1 % (18.0-42.0); Mean Corpuscular HGB Conc 30.5 g/dL (32-36); Mean Corpuscular Hemoglobin 26.2 pg (27.0-31.0); Mean Corpuscular Volume 85.8 fL (78.0-102.0); Monocytes Absolute Auto 0.93 K/mm3 (0.10-0.90); Monocytes Percent Auto 11.4 % (2.0-11.0); Neutrophils Percent Auto 64.9 % (50.0-70.0); Platelet Count Result 184 K/mm3 (150-420); Red Blood Count 4.73 M/mm3 (4.70-6.10); Red Cell Distribution Width 16.4 % (11.6-14.4); White Blood Count 8.2 K/mm3 (4.8-10.8)
[2023-11-16 10:47] LABS: Hemoglobin A1C 10.9 % (<5.7)
[2023-11-16 12:04] LABS: Alanine Aminotransferase 29 U/L (16-63); Albumin Level 3.4 g/dL (3.4-5.0); Alkaline Phosphatase 153 U/L (46-116); Anion Gap 9 mmol/L (4-12); Aspartate Amino Transferase 20 U/L (15-37); Bilirubin,Total 0.7 mg/dL (0.00-1.00); Blood Urea Nitrogen 38 mg/dL (7-18); Calcium 9.1 mg/dL (8.5-10.1); Carbon Dioxide 30 mmol/L (21-32); Chloride 98 mmol/L (98-108); Cholesterol 155 mg/dL (0-200); Estimated Glomerular Filt Rate 41; Ferritin 72 ng/mL (26-388); Glucose 201 mg/dL (70-99); HDL Direct 77 mg/dL (40-60); LDL Cholesterol Calculated 64 mg/dL (<130); Osmolality Calculated 299 mOsm/kg (285-295); Potassium 4.5 mmol/L (3.5-5.1); Sodium 137 mmol/L (136-145); Total Protein 7.2 g/dL (6.4-8.2); Triglycerides 70 mg/dL (0-150)
== END 2023-11-16 10:02 | disposition home or self-care (01) ==
LOC: CHSLAB 10:07
DX: D64.9 Anemia, unspecified (principal); E11.65 Type 2 diabetes mellitus with hyperglycemia
CPT/HCPCS: 36415; 80053; 80061; 82728; 83036; 85025

== ENCOUNTER 2023-11-23 13:06 | Outpatient (RCR) | payer MEDICARE, OTHER, SELFPAY ==
--- NOTE | 2023-11-23 16:16 | OPREHPOC ---
Outpatient Therapy Plan of Care This is a Multidisciplinary Plan of Care that may contain components documented by all disciplines (PT, OT, and ST.) PT Problem 1 PT Problem #1 Knowledge Deficit PT Goal 1 Goal The patient will be independent in a home exercise program. Target Visit 4 PT Problem 2 PT Problem #2 Impaired Balance PT Goal 1 Goal The patient will improve the Tinetti Balance Scale to 20/28 indicating less of a fall risk. Target Visit 10 PT Problem 3 PT Problem #3 Impaired Functional Mobil PT Goal 1 Goal The patient will ambulate 800 feet during the 6 minute walk test indicating improved endurance. Target Visit 10 PT Problem 4 PT Problem #4 Impaired Strength PT Goal 1 Goal The patient will demonstrate the ability to transfer from sitting to standing without use of his UE indicating improved functional strength in the LE. Target Visit 10
--- NOTE | 2023-11-23 16:16 | PTOPEVAL1 ---
Assessment and note entered by Dari Resendez, PT Evaluation Information Assessment Status Evaluation Diagnosis Debilitated Onset 11/18/23 Subjective Information Mendez Lay reports he has a fear of falling and he needs to use a cane or walker all the time. He reports he last fell about 3 weeks ago when he tried to stand up and his foot got caught on a rug . He has trouble walking on rocks or grass and he is unable to carry groceries into the house. He has to use a handrail and goes one step at time. He lives in his daughter's basement but has a chair lift to get up and down the stairs. He went to the doctor last week and he was diagnosed with an abdominal hernia and he has to have cataract surgery as well. He was referred to PT to work on balance and strength. He also notes difficulty getting dressed. He has been diagnosed with arthritis and reports he has pain everyday especially in the hips. Reported Pain Level Pain Score 0: Self Report Assessment PT Clinical Summary Mendez Lay presents to PT after a fall at home approximately 3 weeks ago. He reports a fear of falling, difficulty walking without an AD, inability to go up and down stairs without a handrail, and decreased balance. He objectively demonstrates weakness in bilateral hips and ankles , decreased balance, impaired gait, impaired balance, and a high fall risk per standard balance tests. He will benefit from skilled PT to address these limitations. Plan of Care Interventions Gait Training,Neuro Re-education,Patient/Caregiver Educati,Therapeutic Activities,Therapeutic Exercise PT Services Indicated Yes Treatment Frequency and 2 times a week for 10 visits Duration These treatments will address the objective and functional deficits as defined above. The patient will be advanced safely and appropriately in order for the patient to progress towards his/her prior level of function. Additional exercises will be introduced and as well as a comprehensive home exercise program upon discharge, if needed, ?to ensure carryover of functional gains achieved in the clinic. This treatment plan has been reviewed and agreement upon by the patient.
--- NOTE | 2023-12-22 08:06 | PCPTNOTE ---
Session cancelled today. Patient in the hospital.
--- NOTE | 2024-01-06 15:55 | OPREHPOC ---
Outpatient Therapy Plan of Care This is a Multidisciplinary Plan of Care that may contain components documented by all disciplines (PT, OT, and ST.) PT Problem 1 PT Problem #1 Knowledge Deficit PT Goal 1 Goal The patient will be independent in a home exercise program. Target Visit 4 Progress Met PT Problem 2 PT Problem #2 Impaired Balance PT Goal 1 Goal The patient will improve the Tinetti Balance Scale to 20/28 indicating less of a fall risk. Tug to be performed in under 25 seconds 5x sit to stand to be performed in under 20 seconds Target Visit 16 Progress Not Met Comment continue PT Problem 3 PT Problem #3 Impaired Functional Mobil PT Goal 1 Goal The patient will ambulate 800 feet during the 6 minute walk test indicating improved endurance. Target Visit 16 Progress Not Met PT Problem 4 PT Problem #4 Impaired Strength PT Goal 1 Goal The patient will demonstrate the ability to transfer from sitting to standing without use of his UE indicating improved functional strength in the LE. Target Visit 16 Progress Not Met Comment continue
--- NOTE | 2024-01-06 15:55 | PTOPREEVAL ---
Assessment and note entered by JT File, PT Evaluation Information Assessment Status Re-evaluation Diagnosis Debilitated Onset 11/18/23 Subjective Information patient reports he does feel better since beginning therapy, but reports he is afraid he is going to be using a walker or a cane for the rest of his life. he reports he uses a walker around the home, and cane outside the home. he reports he is having cataract surgery in a few weeks. Reported Pain Level Pain Score 6: Self Report Assessment PT Clinical Summary mr. yepez presents to skilled PT services for his 10th skilled PT visit for debilitation. he presents today with continued high fall risk, unsteady gait, and decreased ambulation endurance. he performs a little worse on objective testing today, but his tests were performed with a walker on initial evaluation and a cane today. given his continued fall risk and functional debility, he would benefit from continued skilled PT to work on improving his balance, strength, endurance, and ambulation. new goals were provided today to focus on other functional balance test improvements to decrease fall risk. Plan of Care Interventions Gait Training,Neuro Re-education,Patient/Caregiver Educati,Therapeutic Activities,Therapeutic Exercise PT Services Indicated Yes Treatment Frequency and continue skilled PT 2x weekly for 6 more visits Duration These treatments will address the objective and functional deficits as defined above. The patient will be advanced safely and appropriately in order for the patient to progress towards his/her prior level of function. Additional exercises will be introduced and as well as a comprehensive home exercise program upon discharge, if needed, ?to ensure carryover of functional gains achieved in the clinic. This treatment plan has been reviewed and agreement upon by the patient.
--- NOTE | 2024-01-20 14:49 | PCPTNOTE ---
Patient called & cancelled scheduled appointment this date due to LE pain. States he will be in tomorrow. -Dari Resendez, PT
--- NOTE | 2024-04-18 16:38 | PCPTNOTE ---
Pt last seen on 02/02/24. He did not attend his last visit so a formal discharge was not completed. He is discharged. -Dari Resendez, PT
== END 2024-02-02 14:00 | disposition home or self-care (01) ==
LOC: CHSPT 13:06
DX: R53.81 Other malaise (principal)
CPT/HCPCS: 97110; 97112; 97150; 97161; 97530; 97750

== ENCOUNTER 2023-12-21 15:29 | Emergency (ER) | payer MEDICARE, OTHER, SELFPAY ==
[2023-12-21] VITALS (12 sets, daily range): BP systolic 103–137; BP diastolic 60–78; PULSE 76–99; RESP 18–24; TEMP 37.2–38.2; O2SAT 92–98
--- NOTE | ~2023-12-21 | CT_ITS ---
EXAMINATION: CT brain wo con DATE: 12/21/2023 16:21 INDICATION: fall . TECHNIQUE: Computed tomography (CT) of the head was performed without intravenous contrast. The mA wa s adjusted according to patient size. Iterative reconstruction technique was employed. The dose-lengt h product was 605.33 mGy-cm. COMPARISON: 02/15/2023. FINDINGS: No acute intracranial hemorrhage or extra-axial fluid collection. No hydrocephalus, mass, or herniation. No acute ischemic infarct. Unremarkable dural venous sinus attenuation. No acute osseous abnormality. The aerated spaces are clear. Mild atrophy and chronic white matter change. Atherosclerotic intracranial calcification. Left tempor al encephalomalacia. IMPRESSION: No acute intracranial process. Reviewed, dictated and finalized at location K.
--- NOTE | ~2023-12-21 | CT_ITS ---
EXAMINATION: CT abdomen pelvis wo con DATE: 12/21/2023 17:49 INDICATION: distended TECHNIQUE: Computed tomography (CT) of the abdomen and pelvis was performed without intravenous contr ast. Automated exposure control and iterative reconstruction technique were employed. The dose-length product was 1340.21 mGy-cm. COMPARISON: CT chest 09/18/2019. FINDINGS: Lower thorax: Coronary artery calcification. Aortic valve replacement. Liver: Normal. Biliary/Gallbladder: Cholelithiasis. No inflammatory change. No bile duct dilation. Pancreas: No mass or duct dilation. Spleen: Normal. Adrenals:4.6 cm soft tissue density right adrenal mass, stable, likely benign. Kidneys: Bilateral simple cysts. No suspicious mass. No hydronephrosis. No obstructing calcification. GI tract: No small or large bowel dilation. Appendix not confidently visualized. Mesentery/Peritoneum: No ascites, mass, or free air. Retroperitoneum: No mass. Atherosclerotic abdominal aortic and/or arterial calcifications. Pelvis: Distended urinary bladder. Mild prostatomegaly. Soft Tissues: Small uncomplicated fat-containing umbilical hernia. Mild body wall edema. Bones: No acute osseous finding. Partially visualized, uncomplicated appearing left hip hardware. IMPRESSION: Distended urinary bladder, correlate for findings of urinary retention. Otherwise, no acute abdominal pelvic process detected. Reviewed, dictated and finalized at location K.
--- NOTE | ~2023-12-21 | CT_ITS ---
EXAMINATION: CT cervical spine wo con DATE: 12/21/2023 16:21 INDICATION: fall TECHNIQUE: Computed tomography (CT) of the cervical spine was performed without intravenous contrast. Automated exposure control and iterative reconstruction technique were employed. The dose-length pro duct was 605.33 mGy-cm. COMPARISON: 02/15/2023. FINDINGS: Vertebral Body Alignment: Stable trace anterolisthesis at C5-6, likely on a degenerative basis. Craniocervical and atlantoaxial alignment: Moderate degenerative change with pannus. Alignment intact . Osseous structures/fracture: No evidence of a lytic or blastic process in the visualized spine. No e vidence of acute fracture. Uncomplicated ACDF hardware at C4-5. Interbody device in good position. Cervical soft tissues: The paraspinal soft tissues planes are maintained. Mild senescent/interstitial changes in the lung apices, with motion artifact. Degenerative changes: Degenerative changes, without severe neural foraminal or central canal narrowin g. Large multilevel anterior osteophytes. IMPRESSION: No acute fracture or traumatic malalignment in the cervical spine. Reviewed, dictated and finalized at location K.
--- NOTE | ~2023-12-21 | XR_ITS ---
XR chest 1V portable DATE: 12/21/2023 16:21 INDICATION: Weakness TECHNIQUE: Portable upright AP chest on December 21, 2023 at 1622 hours COMPARISON: February 15, 2023 portable AP chest FINDINGS: Status post sternotomy. Thyromegaly. There is pulmonary vascular congestion and redistribut ion. There are bilateral probably central lower lung zone infiltrates suggesting pulmonary edema. Sma ll pleural effusions are suggested. No pneumothorax. IMPRESSION: Congestive heart failure, pulmonary edema Reviewed, dictated and finalized at location A.
--- NOTE | 2023-12-21 15:33 | ED.WEAKNESS ---
HPI - Weakness General Chief complaint: Weakness Stated complaint: FALL Time Seen by Provider: 12/21/23 15:32 Source: patient Mode of arrival: ambulatory Limitations: no limitations History of Present Illness HPI Narrative: patient is a 68-year-old male who was getting out of the car and collapsed due to near syncope. He did not hurt himself at the event. EMS was called. He is having generalized weakness and not focal weakness. MD Complaint: generalized weakness Onset (ago): hour(s) (1) Duration: constant Location: generalized Migration: none Severity: mild Severity scale (1-10): 3 Relieving factors: none Exacerbating factors: none Associated symptoms: denies other symptoms Related Data Home Medications Medication Instructions Recorded Confirmed albuterol sulfate 90 mcg/actuation 1 puff inhalation Q4-6H PRN 07/03/20 12/21/23 aerosol inhaler (Ventolin HFA) Shortness Of Breath allopurinol 300 mg tablet 300 mg PO DAILY 07/03/20 12/21/23 aspirin 81 mg tablet 81 mg PO DAILY 07/03/20 12/21/23 atorvastatin 80 mg tablet 80 mg PO HS 07/03/20 12/21/23 furosemide 40 mg tablet 40 mg PO BID 07/03/20 12/21/23 gabapentin 100 mg capsule 400 mg PO DAILY 07/03/20 12/21/23 glipizide 5 mg tablet, extended 5 mg PO DAILY 07/03/20 12/21/23 release 24 hr pantoprazole 40 mg tablet,delayed 40 mg PO DAILY 07/03/20 12/21/23 release sertraline 50 mg tablet 50 mg PO DAILY 07/03/20 12/21/23 ropinirole 2 mg tablet 4 mg PO HS 01/31/22 12/21/23 docusate sodium 100 mg capsule 100 mg PO DAILY PRN Constipation 02/01/22 12/21/23 camphor-menthol 0.5 %-0.5 % lotion 1 applic topical BID 02/09/23 12/21/23 (Sarna Original) empagliflozin 25 mg tablet 25 mg PO DAILY 02/09/23 12/21/23 (Jardiance) fluticasone fur. 100 mcg-umeclid 1 inh inhalation DAILY 02/09/23 12/21/23 62.5 mcg-vilant 25 mcg inhalat.powder (Trelegy Ellipta) gabapentin 100 mg tablet 800 mg PO HS 02/09/23 12/21/23 hydrocodone 7.5 mg-acetaminophen 1 tablet PO Q8H PRN Pain, Moderate 02/09/23 12/21/23 325 mg tablet hydroxyzine HCl 50 mg tablet 50 mg PO TID PRN itch 02/09/23 12/21/23 insulin detemir U-100 100 unit/mL 15 unit subcut HS 02/09/23 12/21/23 (3 mL) subcutaneous pen (Levemir FlexPen) methocarbamol 500 mg tablet 500 mg PO TID 02/09/23 12/21/23 metolazone 2.5 mg tablet 2.5 mg PO DAILY 02/09/23 12/21/23 mupirocin 2 % topical ointment 1 applic topical BID 02/09/23 12/21/23 spironolactone 25 mg tablet 25 mg PO DAILY 02/09/23 12/21/23 trazodone 100 mg tablet 200 mg PO HS PRN insomnia 02/09/23 12/21/23 warfarin 5 mg tablet 5 mg PO DAILY 02/09/23 12/21/23 Allergies Allergy/AdvReac Type Severity Reaction Status Date / Time No Known Allergies Allergy Verified 02/10/22 08:22 Review of Systems Review of Systems: All systems reviewed & are unremarkable except as noted in HPI and below Constitutional: Constitutional: Reports no additional constitutional complaints Eyes: Eyes: Reports no additional eye complaints ENT: Reports system reviewed and no additional complaints, except as documented Cardiovascular: Cardiovascular: Reports no additional cardiovascular complaints Respiratory: Respiratory: Reports no additional respiratory complaints Gastrointestinal: Gastrointestinal: Reports no additional gastrointestinal complaints Genitourinary: Genitourinary: Reports no additional male genitourinary complaints Musculoskeletal: Musculoskeletal: Reports no additional musculoskeletal complaints Integumentary/Breasts: Skin/Breast: Reports system reviewed and no additional complaints, except as docu Neurologic: Reports system reviewed and no additional complaints, except as documented Psychiatric: Psychiatric: Reports no additional psychiatric complaints Endocrine: Endocrine: Reports no additional endocrine complaints Hematologic/Lymphatic: Hematologic/Lymphatic: Reports no additional hematologic/lymphatic complaints Allergic/Immunologic: Allergic/Immunologic: Reports
--- NOTE | 2023-12-21 15:36 | ECG_ITS ---
SEE SCANNED COPY FOR CONFIRMED REPORT. MTDD
--- NOTE | 2023-12-21 15:47 | PC.NURSE ---
EKG completed. Daughter at the bedside
--- NOTE | 2023-12-21 15:53 | PC.NURSE ---
patient being transported to [facility] via wheelchair
--- NOTE | 2023-12-21 16:02 | PC.NURSE ---
daughter reports that abdominal swelling is more than what it usually is
[2023-12-21 16:10] LABS: Appearance Urine Clear (Clear); Bilirubin Urine Negative (Negative); Blood Urine Negative (Negative); Color Urine Light Yellow (Yellow); Glucose Urine UA 3+ (Negative); Ketones Urine Negative (Negative); Leukocyte Esterase Ur Negative LEU/UL (Negative); Nitrate Urine Negative (Negative); Protein Urine Negative (Negative); Urobilinogen Urine 0.2 mg/dL (0.2-1.0)
[2023-12-21 16:13] LABS: Add Urine Microscopic? YES; Bacteria Urine Trace /hpf; RBC Urine None seen /hpf (0-2); Squamous Epithelial Cell Urine Rare /hpf (Few); WBC Urine None seen /hpf (0-3)
--- NOTE | 2023-12-21 16:19 | PC.NURSE ---
lab at the bedside
[2023-12-21 16:42] LABS: Basophils Absolute Auto 0.03 K/mm3 (0.00-0.10); Basophils Percent Auto 0.3 % (0.0-1.0); Eosinophils Absolute Auto 0.24 K/mm3 (0.02-0.50); Eosinophils Percent Auto 2.5 % (1.0-6.0); Hematocrit 38.2 % (37.0-46.0); Hemoglobin 11.6 g/dL (12.4-15.3); Immature Granulocyte Absolute 0.04 K/mm3 (0.00-0.00); Immature Granulocyte Percent A 0.4 % (0.0-0.0); Lymphocytes Absolute Auto 0.68 K/mm3 (1.10-4.50); Mean Corpuscular HGB Conc 30.4 g/dL (32-36); Mean Corpuscular Hemoglobin 26.6 pg (27.0-31.0); Mean Corpuscular Volume 87.6 fL (78.0-102.0); Mean Platelet Volume 11.4 fl (8.7-11.0); Monocytes Absolute Auto 1.05 K/mm3 (0.10-0.90); Monocytes Percent Auto 10.9 % (2.0-11.0); Neutrophils Absolute Auto 7.63 K/mm3 (1.70-7.20); Neutrophils Percent Auto 78.9 % (50.0-70.0); Platelet Count Result 144 K/mm3 (150-420); Red Blood Count 4.36 M/mm3 (4.70-6.10); Red Cell Distribution Width 15.3 % (11.6-14.4); White Blood Count 9.7 K/mm3 (4.8-10.8)
--- NOTE | 2023-12-21 16:55 | PC.NURSE ---
ER Provider at the bedside
[2023-12-21 16:56] LABS: INR 2.4; Partial Thromboplastin Time 40.2 Sec (23.9-30.70); Prothrombin Time 24.9 Seconds (9.50-12.1)
[2023-12-21 16:58] LABS: Ethanol < 3 mg/dL (0-6)
--- NOTE | 2023-12-21 17:06 | PC.NURSE ---
repositioned for comfort. call light in reach. patient requested water to drink. ok to give ice chips per ERP
[2023-12-21 17:09] LABS: Alanine Aminotransferase 21 U/L (16-63); Alkaline Phosphatase 165 U/L (46-116); Anion Gap 8 mmol/L (4-12); Aspartate Amino Transferase 23 U/L (15-37); Blood Urea Nitrogen 46 mg/dL (7-18); Carbon Dioxide 28 mmol/L (21-32); Chloride 100 mmol/L (98-108); Estimated CRCL calculation 31 ml/min; Estimated Glomerular Filt Rate 28; Glucose 288 mg/dL (70-99); Magnesium 2.3 mg/dL (1.8-2.4); NT Pro B Type Natriuretic Pept 3757 pg/mL (0-125); Osmolality Calculated 304 mOsm/kg (285-295); Potassium 4.8 mmol/L (3.5-5.1); Sodium 136 mmol/L (136-145); Total Protein 7.2 g/dL (6.4-8.2); Troponin I 43.4 ng/L (0.00-60.4)
--- NOTE | 2023-12-21 17:25 | PC.NURSE ---
Addendum entered by Sapphire Villatoro RN 12/21/23 17:26: waiting to go to ct Original Note: patient sitting on the side of the bed using the urinal.
--- NOTE | 2023-12-21 17:30 | PC.NURSE ---
patient accidentally urinated on his pants and underwear. wet clothing removed. cleaned patient up. placed disposable underwear on. placed in gown.
--- NOTE | 2023-12-21 17:40 | PC.NURSE ---
daughter back at the bedside. updated daughter and patient on lab work and imaging that has been completed. patient being transported to radiology via wheelchair.
--- NOTE | 2023-12-21 17:48 | PC.NURSE ---
returned from ct. requested to sit up in chair vs being in the bed. done. daughter at the bedside
--- NOTE | 2023-12-21 18:15 | PC.NURSE ---
continues to be sitting in chair with daughter at his side. no needs voiced at this time
--- NOTE | 2023-12-21 18:27 | PC.NURSE ---
updated daughter and patient that we are waiting on ct results. daughter and patient verbalized understanding
--- NOTE | 2023-12-21 18:39 | PC.NURSE ---
ERP notified of bladder scan results of 650
[2023-12-21] MEDS: ACETAMINOPHEN 500 MG TABLET 1000 MG PO (20:27)
[2023-12-21] MEDS: HYDROcodone/acetaminophen (*CRX) 5-325 MG TABLET 1 TAB PO (21:51)
[2023-12-22 00:26] LABS: Troponin I 55.6 ng/L (0.00-60.4)
[2023-12-22 00:28] LABS: Lactic Acid Reflex 0.5 mmol/L (0.4-2.0)
[2023-12-22 00:49] LABS: Influenza A QL RT-PCR Negative (Negative); Influenza B QL RT-PCR Negative (Negative); RSV RNA, RT-PCR Negative (Negative); SARS-CoV-2 RNA PCR Negative (Negative)
[2023-12-22 01:37] LABS: Glucose Point of Care 138 mg/dl (65-105)
[2023-12-22] MEDS: PIPERACILLN/TAZ 3.375GM/NS50ML 3.375 GM/50 ML BAG IVPB (01:54)
[2023-12-22] MEDS: FUROSEMIDE INJ 20 MG/2 ML VIAL 10 MG IV PUSH (01:54)
[2023-12-22 02:00] VITALS: PULSE 80
[2023-12-24 06:33] LABS: Prolactin 12.4 ng/mL (2.0-18.0)
--- NOTE | 2023-12-28 12:29 | PC.NURSE ---
Final blood culture report, no growth after 5 days, no further action or treatment needed per ERP.
== END 2023-12-22 02:40 | disposition short-term general hospital (02) ==
PROVIDERS: Emergency Provider Emergency Medicine
DX: R55 Syncope and collapse (principal); N13.8 Other obstructive and reflux uropathy; N17.9 Acute kidney failure, unspecified; I48.91 Unspecified atrial fibrillation; I25.10 Atherosclerotic heart disease of native coronary artery without angina pectoris; N18.9 Chronic kidney disease, unspecified; I50.9 Heart failure, unspecified; E11.22 Type 2 diabetes mellitus with diabetic chronic kidney disease; E78.5 Hyperlipidemia, unspecified; Z79.82 Long term (current) use of aspirin; Z79.01 Long term (current) use of anticoagulants; Z79.4 Long term (current) use of insulin; Z79.891 Long term (current) use of opiate analgesic; Z20.822 Contact with and (suspected) exposure to COVID-19
CPT/HCPCS: 36415; 70450; 71045; 72125; 74176; 80053; 80307; 81001; 82948; 83605; 83735; 83880; 84146; 84484; 85025; 85610; 85730; 87040; 87637; 93005; 96365; 96375; 99285; A9270; J1940; J2543

== ENCOUNTER 2023-12-22 04:03 | Inpatient (IN) | payer MEDICARE, OTHER, SELFPAY ==
[2023-12-22] VITALS (8 sets, daily range): BP systolic 116–144; BP diastolic 68–93; PULSE 82–110; RESP 16–20; TEMP 36.4–36.9; O2SAT 91–99; BMI 34.7
--- NOTE | ~2023-12-22 | XR_ITS ---
EXAMINATION: XR chest 1V portable DATE: 12/22/2023 13:00 INDICATION: Shortest of breath. TECHNIQUE: A single frontal view of the chest was obtained. COMPARISON: Chest single view 12/21/2023 FINDINGS: There is no pneumonia, pleural effusion, or pneumothorax. Cardiomegaly is noted. There are changes of aortic valve replacement. There are changes of anterior fusion procedure in cervical spine . There are old healed left rib fractures. IMPRESSION: 1. Cardiomegaly. Reviewed, dictated and finalized at location A. IMPRESSION: 1. Cardiomegaly.
--- NOTE | 2023-12-22 04:12 | PM.IMHP ---
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 He reports that he coughs all the time. He reports that he is always short of breath. He sleeps in a recliner at all times. He reports he has had increased abdominal distension for about 3 weeks. He denies any abdominal pain. He has not had any significant increase in is chronic edema in his thighs. He does not have significant edema in his lower extremities. He denied any difficulty with urination but at the outside hospital a CT demonstrated a markedly distended bladder. Oneill catheter was placed at the outside facility with immediate return 1.2 L of urine. He reports his last bowel movement was on the 30th and was normally formed and nonbloody. He does have increased warmth to his right lower extremity they stay as has been getting worse for the last 2 weeks. In is accompanied by a area of wound. He reports that he has been putting cream that he got from wound care on the area. He reports that he chronically H is in his groin and is subsequently scratching. He has is graded skin there is well it is also erythematous. Source of information comes from external medical records and patient report as well as ER physician report. Patient is a fair historian but is slow to respond. The patient only has limited read medical records within our system. He receives all of his care through [facility] in [place]. He wanted to be transferred to that facility but they had no beds in subsequently the patient was transferred here. Review of Systems Review of Systems: 12 systems were reviewed with pertinent positives and negatives per HPI. Except as documented in the HPI, all other systems were reviewed and are negative. [facility] Past Medical History Medical History (Updated 12/22/23 @ 08:59 by Bridget Vicente DO) Afib On chronic anticoagulation with Coumadin Bilateral carotid artery stenosis CAD (coronary artery disease) Nuclear medicine stress test 01/2022: Medium area of [id number] intensity fixed defect consistent with infarction in the inferior and basal inferior knox, EF is 51% Chronic anemia Chronic right-sided heart failure Moderate decreased right ventricular systolic function noted on echo 12/2022 CKD (chronic kidney disease) Stage IV with baseline creatinine 1.4-1.8 Combined systolic and diastolic congestive heart failure Echocardiogram 12/2022: EF 37% grade 2 diastolic dysfunction, mild LVH COPD (chronic obstructive pulmonary disease) CVA (cerebral vascular accident) Evidence of old temporal CVA noted on imaging 12/22/2023 Depression Diabetes mellitus Historically poorly controlled with last A1c 10/2023 of 10.2 Diabetic neuropathy Gout Hyperlipidemia Obstructive sleep apnea Intolerant to CPAP Peripheral artery disease Restless leg syndrome Right rib fracture Severe pulmonary hypertension Surgical History Surgical History (Updated 12/22/23 @ 04:31 by Bridget Vicente DO) History of aortic valve replacement with bioprosthetic valve (~2013) History of cardiac catheterization Family History Family History Mother Tuberculosis Social History Social History (Updated 12/22/23 @ 08:36 by Bridget Vicente DO) Social History: The patient is for with for 46 years. His a couple of years ago. He now lives with his daug
[2023-12-22 05:33] LABS: Basophils Absolute Auto 0.1 K/mm3 (0.0-0.1); Basophils Percent Auto 0.5 % (0.2-1.2); Eosinophils Absolute Auto 0.3 K/mm3 (0-0.3); Eosinophils Percent Auto 3.1 % (0-4.4); Hematocrit 38.8 % (42.0-52.0); Immature Granulocyte Absolute 0.04 K/mm3 (0.00-0.031); Immature Granulocyte Percent A 0.4 % (0-0.5); Lymphocytes Absolute Auto 1.62 K/mm3 (0.9-3.2); Lymphocytes Percent Auto 14.7 % (18.3-44.2); Mean Corpuscular HGB Conc 30.9 g/dl (32-36); Mean Corpuscular Volume 87.4 fl (80-100); Mean Platelet Volume 11.4 fl (7.4-10.4); Monocytes Absolute Auto 1.6 K/mm3 (0.1-0.6); Monocytes Percent Auto 14.9 % (2.6-8.5); Neutrophils Absolute Auto 7.3 K/mm3 (1.3-6.7); Neutrophils Percent Auto 66.4 % (45.5-73.1); Platelet Count Result 171 k/mm3 (150-375); Red Blood Count 4.44 M/mm3 (4.6-6.20); Red Cell Distribution Width 15.7 % (11.5-14.5)
[2023-12-22 05:43] LABS: INR 2.1; Prothrombin Time 24.7 Seconds (11.1-14.7)
[2023-12-22 05:46] LABS: Anion Gap 10 mmol/L (4-12); Blood Urea Nitrogen 45 mg/dL (9-20); CRP 4.5 mg/dL (<1.0); Calcium 9.3 mg/dL (8.4-10.2); Carbon Dioxide 24 mmol/L (22-30); Chloride 105 mmol/L (98-107); Estimated CRCL calculation 35 ml/min; Estimated Glomerular Filt Rate 33; Glucose 96 mg/dL (65-110); Potassium 4.2 mmol/L (3.4-5.0); Sodium 139 mmol/L (137-145)
[2023-12-22 06:45] LABS: Erythrocyte Sedimentation Rate 52 mm/hr (0-20)
[2023-12-22 08:21] LABS: Glucose Point of Care 92 mg/dl (65-105)
[2023-12-22] MEDS: allopurinoL 300 MG TABLET PO (08:50)
[2023-12-22] MEDS: FUROSEMIDE 40 MG TABLET PO ×2 (08:50→17:01)
[2023-12-22] MEDS: methocarbamoL 500 MG TABLET PO ×3 (08:51→17:01)
[2023-12-22] MEDS: PANTOPRAZOLE 40 MG TABLET PO (08:51)
[2023-12-22] MEDS: SPIRONOLACTONE 25 MG TABLET PO (08:51)
[2023-12-22] MEDS: EMPAGLIFLOZIN 25 MG TABLET PO (08:51)
[2023-12-22] MEDS: SERTRALINE HCL 50 MG TABLET PO (08:51)
[2023-12-22] MEDS: GABAPENTIN 400 MG CAPSULE PO (08:51)
[2023-12-22] MEDS: metOLazone 2.5 MG TABLET PO (08:51)
[2023-12-22] MEDS: ASPIRIN 81 MG CHEWABLE TABLET PO (08:51)
[2023-12-22] MEDS: MUPIROCIN 2% OINT 22 GM TUBE 1 APPLIC TOPICAL (08:51)
[2023-12-22] MEDS: PIPERACILLIN/TAZ 2.25G/NS 50ML 2.25 GM/50 ML BAG IVPB ×3 (08:52→17:02)
[2023-12-22] MEDS: FLUTICASONE/UMECLIDIN/VILANTER 100-62.5-25 MCG ELLIPTA 1 PUFF INHALATION ×2 (08:53→08:54)
[2023-12-22] MEDS: BUMETANIDE INJ 1 MG/4 ML VIAL IV PUSH (08:53)
[2023-12-22] MEDS: TAMSULOSIN HCL 0.4 MG CAPSULE PO (09:14)
[2023-12-22] MEDS: glipiZIDE XL 5 MG TABCR PO (09:36)
[2023-12-22 12:04] LABS: Glucose Point of Care 334 mg/dl (65-105)
[2023-12-22] MEDS: INSULIN ASPART (*BKC) 100 UNITS/ML SUB-Q ×2 (12:08→20:58)
--- NOTE | 2023-12-22 13:05 | PM.IMPN ---
Progress Note: A&P Assessment and Plan (1) Cellulitis: Qualifiers: Site of cellulitis: extremity Site of cellulitis of extremity: lower extremity Laterality: right Qualified Code(s): L03.115 - Cellulitis of right lower limb Code(s): L03.90 - Cellulitis, unspecified Status: Acute Assessment and Plan: CELLULITIES right lower extremity and left upper mid thigh Blood cultures, culture of the aspirate or skin biopsy. Imaging is necessary CRP and sed rate elevated. Lactic acid normal Continue Aldactone and Zaroxolyn for extremity edema Antibiotic regimen targeting patient's risk factors Monitor for sepsis and septic shock Monitor IV hydration IV antibiotics Zosyn Monitor vital signs and oxygen saturation Recommend duration of antimicrobial therapy is 5-7 days (2) ALICIA (acute kidney injury): Code(s): N17.9 - Acute kidney failure, unspecified Status: Acute Assessment and Plan: possibly due to infection. would lead to urinary retention Oneill has been placed. Started on Flomax Creatinine 2.0 And gentle hydration. Avoid nephrotoxic drugs. Monitor antihypertensive drugs Avoid NSAIDs. Routine CMP monitor GFR. Monitor electrolytes potassium levels. Dose antibiotics depending on creatinine clearance Routine follow-up with PCP and seismic plotter recommended (3) Diabetes mellitus, type II: Code(s): E11.9 - Type 2 diabetes mellitus without complications Status: Acute Assessment and Plan: will start Levemir and be mealtime insulin. Home medicines are glipizide and Jardiance which have been resumed. Also continue sliding scale insulin HBA1c pending ( goal <7.0%) , Renal functions, Liver panel every 3 months Monitor vitamin B12 levels Optimize STEVIE-inhibitor and statin Routine glucose monitoring. continue gabapentin for peripheral neuropathy Watch for Hypoglycemia. BMI goal < 25 Yearly eye exam and foot exam Exercise, Diet ( low salt- low carb) Weight loss Routinely check for urine microalbuminuria Routine follow-up with PCP and video editor (4) Chronic atrial fibrillation: Onset Date: 08/08/17 Code(s): I48.20 - Chronic atrial fibrillation, unspecified Status: Acute Assessment and Plan: history of atrial fibrillation heart rate well controlled. Chronic anticoagulation with Coumadin monitor INR with antibiotics. continue atorvastatin (5) Fever: Qualifiers: Fever type: due to other condition Qualified Code(s): R50.81 - Fever presenting with conditions classified elsewhere Code(s): R50.9 - Fever, unspecified Status: Acute Plan History of COPD continue elliptical inhaler history of restless leg syndrome continue Requip. DVT prophylaxis. Warfarin GI prophylaxis. PPI All records reviewed Discussed plan of care with the nursing staff and with the patient in detail. Answered all questions and concerns from the patient. All labs have been reviewed. Code status updated dictation may have been done utilizing a voice recognition system. Attempts have been made to correct errors. However, there may be uncorrected grammatical, spelling, and recognition errors present. Subjective Date/time seen: 12/22/23 13:05 Interval history: patient denies any complaints Review of Systems Review of Systems: All systems reviewed & are unremarkable except as noted in HPI and below Exam Narrative: Weight 97.8 kg BMI 34.8 Const: Other: Chronically ill-appearing, appears older than stated age HENMT: Other: Head is normocephalic atraumatic, mucous membranes are tacky, no oral pharyngeal erythema, Eyes: Other: Pupils are equal and reactive, no scleral icterus Neck: Other: Large neck circumference, no JVD Resp: Other: Is Cardio: Other: Regular rate, irregular rhythm, 2+ bilateral radial pulses, 2+ pedal pulses GI: Other:
[2023-12-22] MEDS: HYDROcodone/acetaminophen (*CRX) 7.5-325 MG TABLET 1 TAB PO ×2 (13:16→21:04)
[2023-12-22] MEDS: WARFARIN (*PBKC) 1 MG TABLET PO (17:01)
[2023-12-22] MEDS: WARFARIN (*PBKC) 5 MG TABLET PO (17:01)
[2023-12-22 17:05] LABS: Glucose Point of Care 126 mg/dl (65-105)
[2023-12-22 18:50] LABS: MRSA (PCR) NOT DETECTED (NOT DETECTE)
[2023-12-22] MEDS: rOPINIRole HCL 1 MG TABLET 4 MG PO (20:27)
[2023-12-22] MEDS: GABAPENTIN 400 MG CAPSULE 800 MG PO (20:27)
[2023-12-22] MEDS: ATORVASTATIN 40 MG TABLET 80 MG PO (20:27)
[2023-12-22] MEDS: INSULIN GLARGINE (LANTUS) 1,000 UNITS/10 ML VIAL 10 UNITS SUB-Q (20:57)
[2023-12-22] MEDS: traZODone HCL 50 MG TABLET 200 MG PO (20:57)
[2023-12-23] VITALS (8 sets, daily range): BP systolic 120–139; BP diastolic 70–80; PULSE 74–107; RESP 16–18; TEMP 36.5–36.7; O2SAT 95–97
[2023-12-23] MEDS: PIPERACILLIN/TAZ 2.25G/NS 50ML 2.25 GM/50 ML BAG IVPB ×5 (00:01→23:00)
[2023-12-23 04:58] LABS: Glucose Point of Care 220 mg/dl (65-105)
[2023-12-23 06:00] LABS: INR 1.8; Prothrombin Time 21.7 Seconds (11.1-14.7)
[2023-12-23] MEDS: FLUTICASONE/UMECLIDIN/VILANTER 100-62.5-25 MCG ELLIPTA 1 PUFF INHALATION (08:02)
[2023-12-23 08:42] LABS: Glucose Point of Care 176 mg/dl (65-105)
[2023-12-23] MEDS: ASPIRIN 81 MG CHEWABLE TABLET PO (08:46)
[2023-12-23] MEDS: GABAPENTIN 400 MG CAPSULE PO (08:47)
[2023-12-23] MEDS: PANTOPRAZOLE 40 MG TABLET PO (08:48)
[2023-12-23] MEDS: glipiZIDE XL 5 MG TABCR PO (08:48)
[2023-12-23] MEDS: FUROSEMIDE 40 MG TABLET PO ×2 (08:48→17:33)
[2023-12-23] MEDS: EMPAGLIFLOZIN 25 MG TABLET PO (08:48)
[2023-12-23] MEDS: TAMSULOSIN HCL 0.4 MG CAPSULE PO (08:48)
[2023-12-23] MEDS: metOLazone 2.5 MG TABLET PO (08:49)
[2023-12-23] MEDS: SERTRALINE HCL 50 MG TABLET PO (08:49)
[2023-12-23] MEDS: SPIRONOLACTONE 25 MG TABLET PO (08:49)
[2023-12-23] MEDS: methocarbamoL 500 MG TABLET PO ×3 (08:49→17:33)
[2023-12-23] MEDS: allopurinoL 300 MG TABLET PO (08:49)
[2023-12-23] MEDS: BUMETANIDE INJ 1 MG/4 ML VIAL IV PUSH (08:50)
--- NOTE | 2023-12-23 10:19 | PM.IMPN ---
Progress Note: A&P Assessment and Plan (1) Cellulitis: Qualifiers: Site of cellulitis: extremity Site of cellulitis of extremity: lower extremity Laterality: right Qualified Code(s): L03.115 - Cellulitis of right lower limb Code(s): L03.90 - Cellulitis, unspecified Status: Acute Assessment and Plan: CELLULITIES right lower extremity and left upper mid thigh Blood cultures, culture Negative CRP and sed rate elevated. Lactic acid normal Continue Aldactone and Zaroxolyn for extremity edema Antibiotic regimen targeting patient's risk factors Monitor for sepsis and septic shock Monitor IV hydration IV antibiotics Zosyn Monitor vital signs and oxygen saturation Recommend duration of antimicrobial therapy is 5-7 days spoke to nursing staff is to look at the wound clinic (2) ALICIA (acute kidney injury): Code(s): N17.9 - Acute kidney failure, unspecified Status: Inactive Assessment and Plan: possibly due to infection. would lead to urinary retention Oneill has been placed. Started on Flomax Creatinine 2.0 And gentle hydration. Avoid nephrotoxic drugs. Monitor antihypertensive drugs Avoid NSAIDs. Routine CMP monitor GFR. Monitor electrolytes potassium levels. Dose antibiotics depending on creatinine clearance Routine follow-up with PCP and principle industrial hygienist recommended (3) Diabetes mellitus, type II: Code(s): E11.9 - Type 2 diabetes mellitus without complications Status: Acute Assessment and Plan: will start Levemir and be mealtime insulin. Home medicines are glipizide and Jardiance which have been resumed. Also continue sliding scale insulin HBA1c pending ( goal <7.0%) , Renal functions, Liver panel every 3 months Monitor vitamin B12 levels Optimize STEVIE-inhibitor and statin Routine glucose monitoring. continue gabapentin for peripheral neuropathy Watch for Hypoglycemia. BMI goal < 25 Yearly eye exam and foot exam Exercise, Diet ( low salt- low carb) Weight loss Routinely check for urine microalbuminuria Routine follow-up with PCP and ultrasound technol concerned about the right leg wound to these (4) Chronic atrial fibrillation: Onset Date: 08/08/17 Code(s): I48.20 - Chronic atrial fibrillation, unspecified Status: Acute Assessment and Plan: history of atrial fibrillation heart rate well controlled. Chronic anticoagulation with Coumadin monitor INR with antibiotics. continue atorvastatin (5) Fever: Qualifiers: Fever type: due to other condition Qualified Code(s): R50.81 - Fever presenting with conditions classified elsewhere Code(s): R50.9 - Fever, unspecified Status: Acute Plan History of COPD continue elliptical inhaler history of restless leg syndrome continue Requip. DVT prophylaxis. Warfarin GI prophylaxis. PPI All records reviewed Discussed plan of care with the nursing staff and with the patient in detail. Answered all questions and concerns from the patient. All labs have been reviewed. Code status updated dictation may have been done utilizing a voice recognition system. Attempts have been made to correct errors. However, there may be uncorrected grammatical, spelling, and recognition errors present. Subjective Date/time seen: 12/23/23 10:19 Interval history: patient denies any complaints Review of Systems Review of Systems: All systems reviewed & are unremarkable except as noted in HPI and below Exam Narrative: Weight 97.8 kg BMI 34.8 Const: Other: Chronically ill-appearing, appears older than stated age HENMT: Other: Head is normocephalic atraumatic, mucous membranes are tacky, no oral pharyngeal erythema, Eyes: Other: Pupils are equal and reactive, no scleral icterus Neck: Other: Large neck circumference, no JVD Resp: Other: Is Cardio: Other: Regular rate, irregular rhythm, 2+
[2023-12-23 10:30] LABS: Hematocrit 39.3 % (42.0-52.0); Mean Corpuscular HGB Conc 30.5 g/dl (32-36); Mean Corpuscular Hemoglobin 27.3 pg (26-34); Mean Corpuscular Volume 89.5 fl (80-100); Mean Platelet Volume 11.7 fl (7.4-10.4); Platelet Count Result 173 k/mm3 (150-375); Red Blood Count 4.39 M/mm3 (4.6-6.20); Red Cell Distribution Width 15.3 % (11.5-14.5); White Blood Count 11.5 K/mm3 (4.5-10.0)
[2023-12-23 10:39] LABS: Alanine Aminotransferase 25 U/L (6-50); Albumin Level 3.9 g/dL (3.5-5.1); Alkaline Phosphatase 153 U/L (38-126); Anion Gap 9 mmol/L (4-12); Aspartate Amino Transferase 40 U/L (17-59); Bilirubin,Total 1.8 mg/dL (0.2-1.3); Blood Urea Nitrogen 48 mg/dL (9-20); Calcium 9.3 mg/dL (8.4-10.2); Carbon Dioxide 28 mmol/L (22-30); Chloride 98 mmol/L (98-107); Estimated CRCL calculation 29 ml/min; Estimated Glomerular Filt Rate 28; Glucose 187 mg/dL (65-110); Potassium 3.7 mmol/L (3.4-5.0); Sodium 135 mmol/L (137-145)
[2023-12-23 11:12] LABS: Hemoglobin A1C 9.6 % (<5.7)
[2023-12-23] MEDS: MUPIROCIN 2% OINT 22 GM TUBE 1 APPLIC TOPICAL ×2 (12:02→17:33)
[2023-12-23 12:21] LABS: Glucose Point of Care 248 mg/dl (65-105)
--- NOTE | 2023-12-23 12:49 | PCCARD ---
EKG ORDERED 12/22/23 @ 04:08 DOES NOT APPEAR TO HAVE BEEN DONE. CHECKED ALL EKG MACHINES AND DID NOT SEE AN EKG ON ANY MACHINE. I ALSO CHECKED THE PATIENT'S CHART - NO EKG'S, JUST TELEMETRY STRIPS. THERE WAS TELEMETRY DOCUMENTED AT 04:00 IN THE PATIENT CARE RECORD.. I'M CANCELLING THIS EKG ORDER NOT DONE.
[2023-12-23] MEDS: INSULIN ASPART (*BKC) 100 UNITS/ML SUB-Q ×3 (13:04→20:09)
[2023-12-23 17:04] LABS: Glucose Point of Care 229 mg/dl (65-105)
[2023-12-23] MEDS: WARFARIN (*PBKC) 5 MG TABLET PO (17:33)
[2023-12-23] MEDS: WARFARIN (*PBKC) 1 MG TABLET PO (17:33)
[2023-12-23] MEDS: INSULIN GLARGINE (LANTUS) 1,000 UNITS/10 ML VIAL 10 UNITS SUB-Q (20:09)
[2023-12-23] MEDS: HYDROcodone/acetaminophen (*CRX) 7.5-325 MG TABLET 1 TAB PO (20:11)
[2023-12-23] MEDS: GABAPENTIN 400 MG CAPSULE 800 MG PO (20:11)
[2023-12-23] MEDS: rOPINIRole HCL 1 MG TABLET 4 MG PO (20:12)
[2023-12-23] MEDS: ATORVASTATIN 40 MG TABLET 80 MG PO (20:12)
[2023-12-23] MEDS: traZODone HCL 50 MG TABLET 200 MG PO (20:12)
[2023-12-23 21:27] LABS: Glucose Point of Care 222 mg/dl (65-105)
[2023-12-23] MEDS: SODIUM CHLORIDE 0.9% IV 250 ML 20 ML (23:01)
[2023-12-24] VITALS (10 sets, daily range): BP systolic 106–141; BP diastolic 55–83; PULSE 82–102; RESP 16–18; TEMP 36.1–37; O2SAT 93–99
[2023-12-24] MEDS: PIPERACILLIN/TAZ 2.25G/NS 50ML 2.25 GM/50 ML BAG IVPB ×3 (05:06→17:16)
[2023-12-24 05:30] LABS: Hematocrit 41.1 % (42.0-52.0); Mean Corpuscular HGB Conc 31.6 g/dl (32-36); Mean Corpuscular Hemoglobin 27.5 pg (26-34); Mean Corpuscular Volume 87.1 fl (80-100); Mean Platelet Volume 11.2 fl (7.4-10.4); Platelet Count Result 218 k/mm3 (150-375); Red Blood Count 4.72 M/mm3 (4.6-6.20); Red Cell Distribution Width 15.3 % (11.5-14.5); White Blood Count 10.1 K/mm3 (4.5-10.0)
[2023-12-24 05:41] LABS: INR 1.8; Prothrombin Time 21.6 Seconds (11.1-14.7)
[2023-12-24 05:46] LABS: Alanine Aminotransferase 26 U/L (6-50); Albumin Level 4.1 g/dL (3.5-5.1); Alkaline Phosphatase 156 U/L (38-126); Anion Gap 8 mmol/L (4-12); Aspartate Amino Transferase 30 U/L (17-59); Bilirubin,Total 1.5 mg/dL (0.2-1.3); Blood Urea Nitrogen 58 mg/dL (9-20); Calcium 9.2 mg/dL (8.4-10.2); Carbon Dioxide 33 mmol/L (22-30); Chloride 91 mmol/L (98-107); Estimated CRCL calculation 28 ml/min; Estimated Glomerular Filt Rate 27; Glucose 211 mg/dL (65-110); Potassium 3.5 mmol/L (3.4-5.0); Sodium 132 mmol/L (137-145)
[2023-12-24 08:17] LABS: Glucose Point of Care 188 mg/dl (65-105)
[2023-12-24] MEDS: FLUTICASONE/UMECLIDIN/VILANTER 100-62.5-25 MCG ELLIPTA 1 PUFF INHALATION (08:42)
[2023-12-24] MEDS: ASPIRIN 81 MG CHEWABLE TABLET PO (08:48)
[2023-12-24] MEDS: TAMSULOSIN HCL 0.4 MG CAPSULE PO (08:48)
[2023-12-24] MEDS: FUROSEMIDE 40 MG TABLET PO ×2 (08:48→17:15)
[2023-12-24] MEDS: PANTOPRAZOLE 40 MG TABLET PO (08:48)
[2023-12-24] MEDS: metOLazone 2.5 MG TABLET PO (08:48)
[2023-12-24] MEDS: SPIRONOLACTONE 25 MG TABLET PO (08:49)
[2023-12-24] MEDS: methocarbamoL 500 MG TABLET PO ×3 (08:49→17:15)
[2023-12-24] MEDS: SERTRALINE HCL 50 MG TABLET PO (08:49)
[2023-12-24] MEDS: BUMETANIDE INJ 1 MG/4 ML VIAL IV PUSH (08:49)
[2023-12-24] MEDS: allopurinoL 300 MG TABLET PO (08:49)
[2023-12-24] MEDS: EMPAGLIFLOZIN 25 MG TABLET PO (08:49)
[2023-12-24] MEDS: GABAPENTIN 400 MG CAPSULE PO (08:49)
[2023-12-24] MEDS: glipiZIDE XL 5 MG TABCR PO (08:50)
[2023-12-24] MEDS: MUPIROCIN 2% OINT 22 GM TUBE 1 APPLIC TOPICAL ×2 (08:51→17:17)
[2023-12-24] MEDS: HYDROcodone/acetaminophen (*CRX) 7.5-325 MG TABLET 1 TAB PO (11:48)
[2023-12-24 12:07] LABS: Glucose Point of Care 201 mg/dl (65-105)
[2023-12-24] MEDS: INSULIN ASPART (*BKC) 100 UNITS/ML SUB-Q ×3 (12:31→20:22)
--- NOTE | 2023-12-24 16:21 | PM.IMPN ---
Progress Note: A&P Assessment and Plan (1) Cellulitis: Qualifiers: Site of cellulitis: extremity Site of cellulitis of extremity: lower extremity Laterality: right Qualified Code(s): L03.115 - Cellulitis of right lower limb Code(s): L03.90 - Cellulitis, unspecified Status: Acute Assessment and Plan: CELLULITIES right lower extremity and left upper mid thigh blood culture negativve CRP and sed rate elevated. Lactic acid normal Continue Aldactone and Zaroxolyn for extremity edema Antibiotic regimen targeting patient's risk factors Monitor for sepsis and septic shock Monitor IV hydration IV antibiotics Zosyn Monitor vital signs and oxygen saturation Recommend duration of antimicrobial therapy is 5-7 days (2) ALICIA (acute kidney injury): Code(s): N17.9 - Acute kidney failure, unspecified Status: Inactive Assessment and Plan: possibly due to infection. would lead to urinary retention Dubon has been placed. Started on Flomax Creatinine 2.0 And gentle hydration. Avoid nephrotoxic drugs. Monitor antihypertensive drugs Avoid NSAIDs. Routine CMP monitor GFR. Monitor electrolytes potassium levels. Dose antibiotics depending on creatinine clearance Routine follow-up with PCP and bulk mail clerk recommended (3) Diabetes mellitus, type II: Code(s): E11.9 - Type 2 diabetes mellitus without complications Status: Acute Assessment and Plan: will start Levemir and be mealtime insulin. Home medicines are glipizide and Jardiance which have been resumed. Also continue sliding scale insulin HBA1c pending ( goal <7.0%) , Renal functions, Liver panel every 3 months Monitor vitamin B12 levels Optimize STEVIE-inhibitor and statin Routine glucose monitoring. continue gabapentin for peripheral neuropathy Watch for Hypoglycemia. BMI goal < 25 Yearly eye exam and foot exam Exercise, Diet ( low salt- low carb) Weight loss Routinely check for urine microalbuminuria Routine follow-up with PCP and warp bleaching vat tender concerned about the right leg wound to these (4) Chronic atrial fibrillation: Onset Date: 08/08/17 Code(s): I48.20 - Chronic atrial fibrillation, unspecified Status: Acute Assessment and Plan: history of atrial fibrillation heart rate well controlled. Chronic anticoagulation with Coumadin monitor INR with antibiotics. continue atorvastatin (5) Fever: Qualifiers: Fever type: due to other condition Qualified Code(s): R50.81 - Fever presenting with conditions classified elsewhere Code(s): R50.9 - Fever, unspecified Status: Acute Assessment and Plan: remains afebrile now Plan History of COPD continue elliptical inhaler history of restless leg syndrome continue Requip. presnted with santo syncope, generalised weakness. urinary retneiotn oted mono dmission, dubon placed. 1200 cc urine out. cxr noted with chf exacerbation. also pickard ALICIA hx of cardiomypoathyw ith combind systolic and diastolic heart failure with right ventricular dysfunction with acute execerbation. iv diuresis started. cxr repeat with imporvement. dc iv bumex bioprostehtic AV repalcemeent paroxysmal atrial fibrillation on chroic anticoaguation with coumadin CKD stage 4 diabetes mellitus on insulin DVT prophylaxis. Warfarin, INR low, will increase the dose to 7 mg tonight GI prophylaxis. PPI All records reviewed Discussed plan of care with the nursing staff and with the patient in detail. Answered all questions and concerns from the patient. All labs have been reviewed. Code status updated dictation may have been done utilizing a voice recognition system. Attempts have been made to correct errors. However, there may be uncorrected grammatical, spelling, and recognition errors present. Subjective Date/time seen: 12/24/23 16:21 Interval history: no overnight events, working with [employer], feeling bet
[2023-12-24 17:13] LABS: Glucose Point of Care 299 mg/dl (65-105)
[2023-12-24] MEDS: WARFARIN (*PBKC) 5 MG TABLET PO (17:15)
[2023-12-24] MEDS: ATORVASTATIN 40 MG TABLET 80 MG PO (20:19)
[2023-12-24] MEDS: rOPINIRole HCL 1 MG TABLET 4 MG PO (20:19)
[2023-12-24] MEDS: GABAPENTIN 400 MG CAPSULE 800 MG PO (20:19)
[2023-12-24] MEDS: INSULIN GLARGINE (LANTUS) 1,000 UNITS/10 ML VIAL 10 UNITS SUB-Q (20:23)
[2023-12-24 21:08] LABS: Glucose Point of Care 274 mg/dl (65-105)
[2023-12-25] VITALS: PULSE 74
[2023-12-25] MEDS: PIPERACILLIN/TAZ 2.25G/NS 50ML 2.25 GM/50 ML BAG IVPB ×2 (00:33→05:20)
[2023-12-25 03:24] VITALS: BP 124/75; PULSE 95; RESP 16; TEMP 36.4; O2SAT 96
[2023-12-25 04:00] VITALS: PULSE 87
[2023-12-25 05:56] LABS: Basophils Absolute Auto 0.1 K/mm3 (0.0-0.1); Basophils Percent Auto 0.7 % (0.2-1.2); Eosinophils Absolute Auto 0.5 K/mm3 (0-0.3); Eosinophils Percent Auto 4.7 % (0-4.4); Hematocrit 44.2 % (42.0-52.0); Hemoglobin 13.8 g/dL (14.0-18.0); Immature Granulocyte Absolute 0.04 K/mm3 (0.00-0.031); Immature Granulocyte Percent A 0.4 % (0-0.5); Lymphocytes Absolute Auto 1.47 K/mm3 (0.9-3.2); Lymphocytes Percent Auto 13.4 % (18.3-44.2); Mean Corpuscular HGB Conc 31.2 g/dl (32-36); Mean Corpuscular Hemoglobin 27.3 pg (26-34); Mean Corpuscular Volume 87.4 fl (80-100); Mean Platelet Volume 10.9 fl (7.4-10.4); Monocytes Absolute Auto 1.5 K/mm3 (0.1-0.6); Monocytes Percent Auto 13.4 % (2.6-8.5); Neutrophils Absolute Auto 7.4 K/mm3 (1.3-6.7); Neutrophils Percent Auto 67.4 % (45.5-73.1); Platelet Count Result 249 k/mm3 (150-375); Red Blood Count 5.06 M/mm3 (4.6-6.20); White Blood Count 10.9 K/mm3 (4.5-10.0)
[2023-12-25 06:09] LABS: INR 1.8; Prothrombin Time 21.7 Seconds (11.1-14.7)
[2023-12-25 06:10] LABS: Alanine Aminotransferase 28 U/L (6-50); Albumin Level 4.5 g/dL (3.5-5.1); Alkaline Phosphatase 166 U/L (38-126); Anion Gap 10 mmol/L (4-12); Aspartate Amino Transferase 32 U/L (17-59); Bilirubin,Total 1.7 mg/dL (0.2-1.3); Blood Urea Nitrogen 73 mg/dL (9-20); Calcium 9.5 mg/dL (8.4-10.2); Carbon Dioxide 34 mmol/L (22-30); Chloride 89 mmol/L (98-107); Estimated CRCL calculation 26 ml/min; Estimated Glomerular Filt Rate 25; Glucose 265 mg/dL (65-110); Magnesium 2.5 mg/dL (1.6-2.3); Potassium 3.5 mmol/L (3.4-5.0); Sodium 133 mmol/L (137-145)
[2023-12-25] MEDS: metOLazone 2.5 MG TABLET PO (07:45)
[2023-12-25] MEDS: methocarbamoL 500 MG TABLET PO ×2 (07:45→12:25)
[2023-12-25] MEDS: allopurinoL 300 MG TABLET PO (07:45)
[2023-12-25] MEDS: SPIRONOLACTONE 25 MG TABLET PO (07:45)
[2023-12-25] MEDS: MUPIROCIN 2% OINT 22 GM TUBE 1 APPLIC TOPICAL (07:45)
[2023-12-25] MEDS: GABAPENTIN 400 MG CAPSULE PO (07:45)
[2023-12-25] MEDS: ASPIRIN 81 MG CHEWABLE TABLET PO (07:45)
[2023-12-25] MEDS: glipiZIDE XL 5 MG TABCR PO (07:45)
[2023-12-25] MEDS: EMPAGLIFLOZIN 25 MG TABLET PO (07:45)
[2023-12-25] MEDS: TAMSULOSIN HCL 0.4 MG CAPSULE PO (07:45)
[2023-12-25] MEDS: FUROSEMIDE 40 MG TABLET PO (07:45)
[2023-12-25] MEDS: PANTOPRAZOLE 40 MG TABLET PO (07:45)
[2023-12-25] MEDS: SERTRALINE HCL 50 MG TABLET PO (07:45)
[2023-12-25 07:50] LABS: Glucose Point of Care 262 mg/dl (65-105)
[2023-12-25 08:00] VITALS: BP 122/70; PULSE 78; PULSE 85; RESP 16; TEMP 36.6; O2SAT 96
[2023-12-25] MEDS: INSULIN ASPART (*BKC) 100 UNITS/ML SUB-Q ×2 (08:34→12:24)
--- NOTE | 2023-12-25 11:15 | PM.DS ---
DS: Admitting Diagnosis Discharge Date 12/25/2023 Admitting Diagnosis Weakness/collapse DS: Discharge Diagnosis Discharge Diagnosis (1) Cellulitis: Qualifiers: Site of cellulitis: extremity Site of cellulitis of extremity: lower extremity Laterality: right Qualified Code(s): L03.115 - Cellulitis of right lower limb Code(s): L03.90 - Cellulitis, unspecified Status: Acute (2) ALICIA (acute kidney injury): Code(s): N17.9 - Acute kidney failure, unspecified Status: Inactive (3) Diabetes mellitus, type II: Code(s): E11.9 - Type 2 diabetes mellitus without complications Status: Acute (4) Chronic atrial fibrillation: Onset Date: 08/08/17 Code(s): I48.20 - Chronic atrial fibrillation, unspecified Status: Acute (5) Fever: Qualifiers: Fever type: due to other condition Qualified Code(s): R50.81 - Fever presenting with conditions classified elsewhere Code(s): R50.9 - Fever, unspecified Status: Acute DS: Summary Hospital Course Hospital Course: This is a 68-year-old may was getting out of the car and almost collapsed. A did not hurt himself at the event. Called. He reported generalized weakness upon presentation are. His vitals were stable laboratory workup revealed WBC of 9.7 11.6 creatinine of 2.3 lactate was normal at 1 troponin was negative BNP as was elevated at 3757. Urinalysis was negative for any infection ethyl alcohol level was negative chest x-ray showed findings of congestive heart failure with pulmonary edema. CT abdomen pelvis was performed due to distension and showed distended urinary bladder suggestive of urinary retention. Oneill catheter was placed and 1200 cc EF urine was removed. His been started on Flomax Oneill S since then removed. He also had findings of anasarca on presentation and was started on diuresis. He had send pain in right lower extremity suggestive of cellulitis and was started on IV antibiotics. His anasarca as well as breathing improved significantly with the treatment switched to oral diuretics by the time of discharge. He follows with health information coder up in [facility] and has a follow-up appointment with them in a short period of time. He also follows with purchasing coordinator for his congestive heart failure center biotics will be switched to oral antibiotics for discharge creatinine fluctuated during the hospital stay diuresis and anticipated will stabilize. INR was low during the hospital stay and his warfarin dose has been increased to 7 mg. He will do his INR monitor at home with a home monitor device that he has and will reach out to his regular doctor continued management. 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 Time Spent with Patient Time attestation: Total time spent providing and/or coordinating discharge services: 35 minutes Exam Narrative: GENERAL: The patient is well developed, not in acute distress HEENT: Nonicteric sclerae, PERRLA, EOMI. Oropharynx clear. Moist mucous membranes. Conjunctivae appear well perfused. CHEST: Chest wall is nontender. HEART: Regular rate and rhythm without murmur, rubs, or gallops LUNGS: Clear to auscultation bilaterally. no respiratory distress ABDOMEN: Soft, positive bowel sounds, non-tender, no organomegaly. SKIN: No rash, no excessive bruising, petechiae, or purpura. Mild bilateral edema right venegas with rednesss and superficial ulcerations noted which is much improved NEUROLOGIC: Cranial nerves II-XII intact, alert and oriented x 3, no gross motor deficits EXTREMITIES: no edema, cyanosis or clubbing DS: Data Data Completed and Pending Labs on day of discharge: Labs from last 24 hours 12/25/23 12/25/23 12/24/23 07:41 05:22 20:12 WBC 10.9 H RBC 5.06 Hgb 13.8 L Hct 44.2 MCV 87.4 MCH 27.3 MCHC 31.2 L RDW 15.0 H P
[2023-12-25 12:09] LABS: Glucose Point of Care 289 mg/dl (65-105)
== END 2023-12-25 12:45 | disposition home or self-care (01) | DRG 602 ==
PROVIDERS: Internal Medicine; Admitting Provider Internal Medicine; Visit Provider Internal Medicine
DX: L03.115 Cellulitis of right lower limb (principal); I50.43 Acute on chronic combined systolic (congestive) and diastolic (congestive) heart failure; N17.9 Acute kidney failure, unspecified; I48.20 Chronic atrial fibrillation, unspecified; N04.9 Nephrotic syndrome with unspecified morphologic changes; I42.9 Cardiomyopathy, unspecified; N18.4 Chronic kidney disease, stage 4 (severe); R33.9 Retention of urine, unspecified; I48.0 Paroxysmal atrial fibrillation; G62.9 Polyneuropathy, unspecified; E11.42 Type 2 diabetes mellitus with diabetic polyneuropathy; N40.0 Benign prostatic hyperplasia without lower urinary tract symptoms; J44.9 Chronic obstructive pulmonary disease, unspecified; G25.81 Restless legs syndrome; E11.22 Type 2 diabetes mellitus with diabetic chronic kidney disease; Z95.2 Presence of prosthetic heart valve; Z79.01 Long term (current) use of anticoagulants
CPT/HCPCS: 36415; 71045; 80048; 80053; 82948; 83036; 83735; 85025; 85027; 85610; 85652; 86140; 87641; 94640; 96365; 96375; 96376; 97110; 97116; 97161; 97165; 97530; 97535; A9270; G0378; G0379; J1815; J1939; J2543; J7050

== ENCOUNTER 2024-02-01 12:54 | Outpatient (CLI) | payer MEDICARE, OTHER, SELFPAY ==
--- NOTE | ~2024-02-01 | CT_ITS ---
CT Scan of the Chest without Contrast: Clinical Indication: Pulmonary nodules Technique: Contiguous sections were acquired throughout the chest without intravenous contrast. Dose reduction technique was used on this scan by utilizing automated exposure control and iterative recon struction technique. The dose-length product (DLP) was 307.14 mGy-cm. COMPARISON: 09/18/2019 Findings: There is no evidence of any significant mediastinal, hilar or axillary lymphadenopathy. There is card iomegaly, status post probable CABG. There is no evidence of pleural or pericardial effusion. Scattered tiny calcified granulomas are present in the lungs. No suspicious pulmonary nodule evident. Probable focal atelectasis or scarring at the right lung base. Images through the upper abdomen reveal small calcified gallstones. There is a 4.5 cm right adrenal n odule which is indeterminate stable from prior exam by Hounsfield units. Impression: Scattered tiny calcified granulomas. No suspicious pulmonary nodule evident. 4.5 cm right adrenal nodule is stable from prior exam, therefore most likely benign given stability s [place] 2019. Reviewed, dictated and finalized at location . Impression: Scattered tiny calcified granulomas. No suspicious pulmonary nodule evident. 4.5 cm right adrenal nodule is stable from prior exam, therefore most likely be nign given stability since 2019.
== END 2024-02-01 12:55 | disposition home or self-care (01) ==
LOC: CHSIMG 12:56
PROVIDERS: PCP Physician Assistant; Visit Provider Physician Assistant
DX: R91.8 Other nonspecific abnormal finding of lung field (principal); E27.8 Other specified disorders of adrenal gland
CPT/HCPCS: 71250

== ENCOUNTER 2024-03-08 13:11 | Outpatient (CLI) | payer MEDICARE, OTHER, SELFPAY ==
[2024-03-08 13:26] LABS: Basophils Absolute Auto 0.06 K/mm3 (0.00-0.10); Basophils Percent Auto 0.7 % (0.0-1.0); Eosinophils Absolute Auto 0.56 K/mm3 (0.02-0.50); Eosinophils Percent Auto 6.8 % (1.0-6.0); Hematocrit 45.5 % (37.0-46.0); Hemoglobin 14.6 g/dL (12.4-15.3); Immature Granulocyte Absolute 0.02 K/mm3 (0.00-0.00); Immature Granulocyte Percent A 0.2 % (0.0-0.0); Lymphocytes Absolute Auto 1.34 K/mm3 (1.10-4.50); Lymphocytes Percent Auto 16.2 % (18.0-42.0); Mean Corpuscular HGB Conc 32.1 g/dL (32-36); Mean Corpuscular Hemoglobin 28.4 pg (27.0-31.0); Mean Corpuscular Volume 88.5 fL (78.0-102.0); Mean Platelet Volume 11.6 fl (8.7-11.0); Monocytes Percent Auto 10.9 % (2.0-11.0); Neutrophils Absolute Auto 5.41 K/mm3 (1.70-7.20); Neutrophils Percent Auto 65.2 % (50.0-70.0); Platelet Count Result 150 K/mm3 (150-420); Red Blood Count 5.14 M/mm3 (4.70-6.10); Red Cell Distribution Width 16.7 % (11.6-14.4); White Blood Count 8.3 K/mm3 (4.8-10.8)
[2024-03-08 13:46] LABS: Creatinine Urine 35.81 mg/dL (40-278)
[2024-03-08 13:47] LABS: MALB Creatinine Ratio 380.8 mg/g (0-30); Microalbumin Urine Random 136.4 mg/L
[2024-03-08 14:15] LABS: Albumin Level 3.7 g/dL (3.4-5.0); Anion Gap 6 mmol/L (4-12); Blood Urea Nitrogen 36 mg/dL (7-18); Calcium 9.2 mg/dL (8.5-10.1); Carbon Dioxide 32 mmol/L (21-32); Chloride 100 mmol/L (98-108); Estimated Glomerular Filt Rate 47; Glucose 73 mg/dL (70-99); Osmolality Calculated 293 mOsm/kg (285-295); Phosphorus 4.4 mg/dL (2.6-4.7); Potassium 4.5 mmol/L (3.5-5.1); Sodium 138 mmol/L (136-145)
== END 2024-03-08 13:12 | disposition home or self-care (01) ==
LOC: CHSLAB 13:15
PROVIDERS: Visit Provider Internal Medicine Nephrology
DX: N18.31 Chronic kidney disease, stage 3a (principal)
CPT/HCPCS: 36415; 80069; 82043; 85025

== ENCOUNTER 2024-06-12 14:37 | Outpatient (CLI) | payer MEDICARE, SELFPAY ==
[2024-06-12 15:07] LABS: Hematocrit 37.2 % (37.0-46.0); Hemoglobin 11.6 g/dL (12.4-15.3); Immature Platelet Fraction Pct 6.3 % (1.0-7.0); Mean Corpuscular HGB Conc 31.2 g/dL (32-36); Mean Corpuscular Hemoglobin 28.5 pg (27.0-31.0); Mean Corpuscular Volume 91.4 fL (78.0-102.0); Platelet Count Result 95 K/mm3 (150-420); Red Blood Count 4.07 M/mm3 (4.70-6.10); Red Cell Distribution Width 16.3 % (11.6-14.4); White Blood Count 8.2 K/mm3 (4.8-10.8)
[2024-06-12 15:18] LABS: MALB Creatinine Ratio 99.2 mg/g (0-30); Microalbumin Urine Random < 13.0 mg/L
[2024-06-12 15:31] LABS: Anion Gap 10 mmol/L (4-12); Blood Urea Nitrogen 33 mg/dL (7-18); Calcium 8.8 mg/dL (8.5-10.1); Carbon Dioxide 25 mmol/L (21-32); Chloride 100 mmol/L (98-108); Estimated Glomerular Filt Rate 45; Glucose 137 mg/dL (70-99); Osmolality Calculated 289 mOsm/kg (285-295); Phosphorus 3.9 mg/dL (2.6-4.7); Potassium 4.6 mmol/L (3.5-5.1); Prostate Specific Antigen 1.6 ng/mL (< OR = 4.0); Sodium 135 mmol/L (136-145)
== END 2024-06-12 14:38 | disposition home or self-care (01) ==
LOC: CHSLAB 14:46
DX: N18.31 Chronic kidney disease, stage 3a (principal); N40.2 Nodular prostate without lower urinary tract symptoms
CPT/HCPCS: 36415; 80069; 82043; 84153; 85027; 85055

== ENCOUNTER 2024-08-28 11:35 | Observation (INO) | payer MEDICARE, SELFPAY ==
[2024-08-28] VITALS (13 sets, daily range): BP systolic 102–149; BP diastolic 62–104; PULSE 66–83; RESP 15–22; TEMP 36.1–36.7; O2SAT 84–96; BMI 38.5
--- NOTE | ~2024-08-28 | XR_ITS ---
XR knee RT 3V Ordering provider: Pedro Bravo MD History: . FALL X10 DAYS AGO,RT KNEE PAIN . Comparison: None. FINDINGS: BONES: No acute fracture or dislocation. JOINT SPACES: Total knee arthroplasty. SOFT TISSUES: Normal. IMPRESSION: No acute osseous abnormality right knee. Total knee arthroplasty. Reviewed, dictated and finalized at location A. Y PAINTER HELPER
--- NOTE | ~2024-08-28 | CT_ITS ---
CT cervical spine wo con Ordering provider: Pedro Bravo MD History: . fall X10 DAYS AGO,TOP OF HEAD INJURY,NO NECK PAIN OR LOC . Comparison: None. Technique: CT of the cervical spine was performed without contrast. Sagittal and coronal reformatted images were also obtained and reviewed. Automated exposure control and iterative reconstruction el hnique were employed. The dose-length product was 1256.90 mGy-cm. FINDINGS: VERTEBRAE: No subluxation or acute fracture. The occipital condyles are intact. Postoperative change s at the level of C4-C5. DISC SPACES: Narrowing of the disc C2-C3, C5-C6, C6-C7 and 6 7 T1. Disc spacer at the level of C4-C5. Osteophyte formation is seen at the level of C3-C4. Narrowing of the foramina C2-C3, C3-C4, C4-C5 an d C5-C6. PARASPINOUS SOFT TISSUES: Bilateral carotid calcifications. IMPRESSION: No acute osseous abnormality cervical spine. Reviewed, dictated and finalized at location A. NG MACHINE OPERATOR AUTOMATIC
--- NOTE | ~2024-08-28 | CT_ITS ---
EXAMINATION: CT chest abdomen pelvis w con DATE: 08/28/2024 13:27 INDICATION: Right chest and abdominal injury. TECHNIQUE: Computed tomography (CT) of the chest, abdomen, and pelvis was performed with 100 mL Omnip aque 350 intravenous contrast. Automated exposure control and iterative reconstruction technique were employed. The dose-length product was 1712.04 mGy-cm. COMPARISON: CT chest 02/01/2024, CT abdomen and pelvis 12/21/2023, chest CT 05/13/2016 FINDINGS: CHEST CT: The lungs demonstrate mild atelectasis. Calcified left lung nodules are consistent with old granuloma tous disease. No pleural effusion. Cardiomegaly is noted. There are changes of aortic valve replaceme nt. There are coronary artery calcifications. There is mild bilateral gynecomastia. There are bridgin g endplate osteophytes at multiple levels in the spine, consistent with diffuse idiopathic skeletal h yperostosis (DISH). There are changes of anterior fusion procedure in cervical spine. There are old h ealed bilateral rib fractures. There are acute fractures of right seventh and eighth ribs. ABDOMEN/PELVIS CT: The liver and spleen are normal. There are gallstones in the gallbladder, which is normal in size. Th e pancreas and left adrenal gland are normal. There is a 4.7 cm mass in right adrenal gland, stable f rom 05/13/2016, likely an adenoma. There are cysts in the kidneys measuring up to 5.7 cm on the left. There is an umbilical hernia containing fat. The prostate is moderately enlarged. There are no dilate d loops of bowel. The appendix is not visualized. There are no pathologically enlarged lymph nodes. T here are mildly enlarged bilateral external iliac nodes. There is a total left hip arthroplasty. Ther e is severe lumbar spondylosis. IMPRESSION: 1. Acute fractures of right seventh and eighth ribs. 2. Mildly enlarged bilateral external iliac lymph nodes, likely reactive. Reviewed, dictated and finalized at location A. L SALES MANAGER
--- NOTE | ~2024-08-28 | XR_ITS ---
XR chest 1V portable 08/30/2024 08:07 Indication: Shortness of breath Procedure: AP portable chest Comparison: Comparison to multiple prior studies sequentially, with oldest reviewed study dated 12/17. Findings: Cardiomegaly. Status post median sternotomy for CABG. Mild interstitial edema. No significa nt effusion. No pneumothorax. No acute osseous abnormality. Impression: 1: Cardiomegaly with interstitial edema. Reviewed, dictated and finalized at location B. TENANCE COORDINATOR Impression: 1: Cardiomegaly with interstitial edema.
--- NOTE | ~2024-08-28 | XR_ITS ---
EXAMINATION: XR chest 1V portable DATE: 08/31/2024 04:48 INDICATION: Shortness of breath. TECHNIQUE: A single frontal view of the chest was obtained. COMPARISON: Chest single view 08/30/2024, chest CT 08/28/2024 FINDINGS: There is a diffuse interstitial pattern, consistent mild pulmonary edema. No pleural effusi on or pneumothorax. Cardiomegaly is noted. There are changes of heart valve replacement. There are ch anges of anterior fusion procedure in cervical spine. There is an old healed left rib fracture. IMPRESSION: 1. Mild pulmonary edema. 2. Cardiomegaly. Reviewed, dictated and finalized at location A. ERCIAL COLLECTIONS DRIVER
--- NOTE | ~2024-08-28 | CT_ITS ---
EXAMINATION: CT brain wo con DATE: 08/28/2024 13:08 INDICATION: Head injury. TECHNIQUE: Computed tomography (CT) of the head was performed without intravenous contrast. The mA wa s adjusted according to patient size. Iterative reconstruction technique was employed. The dose-lengt h product was 605.33 mGy-cm. COMPARISON: Head CT 12/21/2023 FINDINGS: There are scattered areas of low attenuation in the cerebral white matter. There is chronic encephalomalacia involving the left temporal lobe and left insula. There is a small old infarct in r ight cerebellum. There is no intracranial hemorrhage, acute infarction, or abnormal intracranial mass lesion. The ventricles are normal in size. There are likely changes of left ocular lens replacement surgery. There is mild mucosal thickening in the paranasal sinuses. The mastoid air cells are normal. There is cerumen in the external auditory canals bilaterally. IMPRESSION: 1. Chronic encephalomalacia involving the left temporal lobe and left insula. Old infarct in right ce rebellum. 2. Stable moderate nonspecific cerebral white matter disease, which likely represents chronic small v essel ischemic disease. Reviewed, dictated and finalized at location A. KEN CUTTER IMPRESSION: 1. Chronic encephalomalacia involving the left temporal lobe and left insula. O ld infarct in right cerebellum. 2. Stable moderate nonspecific cerebral white matter disease, which likely repr esents chronic small vessel ischemic disease.
--- NOTE | 2024-08-28 11:56 | ED_ITS ---
HPI - General Adult General Chief complaint: Shortness of Breath/Dyspnea Stated complaint: sent by primary Time Seen by Provider: 08/28/24 11:46 Source: patient Mode of arrival: ambulatory History of Present Illness HPI narrative: patient is 69 years old white male came to the ED by private car from home complaining of right chest right abdomen pain after a fall 2 weeks ago. Patient is telling me that he was walking, tripped and fell at the sidewalk, possible head injury, no loss of consciousness, complaining of right chest and right abdomen pain which gradually getting worse. Lately patient started having trouble breathing and general weakness. Patient ran out of his sleeping pills and pain pills. History of diabetes hypertension hyperlipidemia COPD TIA, patient currently on Coumadin and aspirin. Patient supposed to be on 2 L oxygen as ne Patient is DNR Related Data Home Medications ?Medication ?Instructions ?Recorded ?Confirmed ?Last Taken ?Type albuterol sulfate 90 mcg/actuation 1 puff inhalation Q4-6H PRN 07/03/20 12/22/23 12/14/22 History aerosol inhaler (Ventolin HFA) Shortness Of Breath allopurinol 300 mg tablet 300 mg PO DAILY 07/03/20 12/22/23 12/14/22 History aspirin 81 mg tablet 81 mg PO DAILY 07/03/20 12/22/23 02/09/23 History atorvastatin 80 mg tablet 80 mg PO HS 07/03/20 12/22/23 02/09/23 History furosemide 40 mg tablet 40 mg PO BID 07/03/20 12/22/23 02/09/23 History gabapentin 100 mg capsule 400 mg PO DAILY 07/03/20 12/22/23 02/09/23 History glipizide 5 mg tablet, extended 5 mg PO DAILY 07/03/20 12/22/23 12/14/22 History release 24 hr pantoprazole 40 mg tablet,delayed 40 mg PO DAILY 07/03/20 12/22/23 02/09/23 History release sertraline 50 mg tablet 50 mg PO DAILY 07/03/20 12/22/23 02/09/23 History ropinirole 2 mg tablet 4 mg PO HS 01/31/22 12/22/23 12/13/22 History docusate sodium 100 mg capsule 100 mg PO DAILY PRN Constipation 02/01/22 12/22/23 02/09/23 History camphor-menthol 0.5 %-0.5 % lotion 1 applic topical BID 02/09/23 12/22/23 Unknown History (Nimco Original) empagliflozin 25 mg tablet 25 mg PO DAILY 02/09/23 12/22/23 Unknown History (Jardiance) fluticasone fur. 100 mcg-umeclid 1 inh inhalation DAILY 02/09/23 12/22/23 Unknown History 62.5 mcg-vilant 25 mcg inhalat.powder (Trelegy Ellipta) gabapentin 100 mg tablet 800 mg PO HS 02/09/23 12/22/23 Unknown History hydrocodone 7.5 mg-acetaminophen 1 tablet PO Q8H PRN Pain, Moderate 02/09/23 12/22/23 Unknown History 325 mg tablet hydroxyzine HCl 50 mg tablet 50 mg PO TID PRN itch 02/09/23 12/22/23 Unknown History insulin detemir U-100 100 unit/mL 15 unit subcut HS 02/09/23 12/22/23 Unknown History (3 mL) subcutaneous pen (Levemir FlexPen) methocarbamol 500 mg tablet 500 mg PO TID 02/09/23 12/22/23 Unknown History metolazone 2.5 mg tablet 2.5 mg PO DAILY 02/09/23 12/22/23 02/09/23 History mupirocin 2 % topical ointment 1 applic topical BID 02/09/23 12/22/23 Unknown History spironolactone 25 mg tablet 25 mg PO DAILY 02/09/23 12/22/23 Unknown History trazodone 100 mg tablet 200 mg PO HS PRN insomnia 02/09/23 12/22/23 Unknown History warfarin 5 mg tablet 5 mg PO DAILY 02/09/23 12/22/23 Unknown History Allergies Allergy/AdvReac Type Severity Reaction Status Date / Time No Known Allergies Allergy Verified 08/28/24 11:50 Review of Systems 2 Review of Systems: All systems reviewed & are unremarkable except as noted in HPI and below PMFSH Past Medical History Medical History Obstructive sleep apnea Intolerant to CPAP Chronic anemia Chronic right-sided heart failure Moderate decreased right ventricular systolic function noted on echo 12/2022 Combined systolic and diastolic congestive heart failure Echocardiogram 12/2022: EF 37% grade 2 diastolic dysfunction, mild LVH Severe pulmonary hypertension Restless leg syndrome CVA (cerebral vascular accident) Evidence of old temporal CVA noted on imaging 12/22/2023 Bilateral carotid artery stenosis Peripheral artery disease Right rib fracture Diabetes mellitus Historically poorly controlled with last A1c 10/2023 of 10.2 CKD (chronic kidney disease) Stage IV with baseline creatinine 1.4-1.8 Depression COPD (chronic obstructive pulmonary disease) Diabetic neuropathy Gout Afib On chronic anticoagulation with Coumadin CAD (coronary artery disease) Nuclear medicine stress test 01/2022: Medium area of hcwi-[id number]-[id number] intensity fixed defect consistent with infarction in the inferior and basal inferior knox, EF is 51% Hyperlipidemia Surgical History Surgical History History of left hip replacement History of bilateral knee replacement History of aortic valve replacement with bioprosthetic valve (~2013) History of cardiac catheterization Family History Family History Mother Tuberculosis Social History Social History Social History: The patient is for with for 46 years. His a couple of years ago. He now lives with his daughter. He ambulates with a cane. 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 He briefly smoked when he was young for 1 or 2 years. He denies any significant alcohol use or illicit substance use. Code status: Full code Smoking status: Never smoker Second hand tobacco smoke exposure: Yes Smoking end date: 09/02/1967 Alcohol intake: current Drinks per week: 2 Substance use: never Substance use type: does not use Do You Feel Safe in your Home?: Yes Lack of Transportation: No Lack of Food: Never True Current Housing: I Have Housing Concerned About Future Housing: No Difficulty Paying Gas/Electric Bills: No Difficulty Paying for Meds: YES Currently Unemployed: No Education: Trade/Vocational Certificate Difficulty w/ Childcare or Family Care: No Gender identity (if verbalized by the patient): Male Sexual Orientation (if Verbalized by the Patient): Straight or Heterosexual Spiritual care concerns: No Exam 2 Narrative: General appearance: Well-developed, well-nourished, ill looking Skin: Normal color Head: Normocephalic, nontraumatic Eyes: Clear conjunctiva ENT: Oropharynx normal, ears normal, nose normal Neck: Supple, nontender Chest and respiratory: mild diminution of air entry bilaterally mainly on the right side, diffuse tenderness and right chest was light palpation, Heart: Regular rate/rhythm Abdomen: Soft, tenderness of the right upper quadrant, extensive bruises, no organomegaly, quiet bowel sounds Vascular: Musculoskeletal: diffuse tenderness of the right chest and right upper quadrant Neurologic: Alert and oriented ?3, [address] LIGHT is normal as tested, no gross motor deficit Course Vital Signs Vital signs: Vital Signs Temperature 36.1 C L 08/28/24 11:52 Pulse Rate 66 08/28/24 11:52 Respiratory Rate 18 08/28/24 11:52 Blood Pressure 102/74 08/28/24 11:52 Pulse Oximetry 95 08/28/24 11:52 Oxygen Delivery Room Air 08/28/24 11:52 Temperature 36.1 C L 08/28/24 11:52 Pulse Rate 66 08/28/24 11:52 Respiratory Rate 18 08/28/24 11:52 Blood Pressure 102/74 08/28/24 11:52 Pulse Oximetry 95 08/28/24 11:52 Oxygen Delivery Room Air 08/28/24 11:52 Medical Decision Making MDM Narrative Medical decision making narrative: patient presents with right chest pain and shortness of breath and a fall started 2 weeks ago Vital signs are stable Physical examination consistent with diminution of air entry bilaterally and quite a bit of bruises right abdomen and severe tenderness right chest Differential diagnosis include rib fracture, chest wall contusion, liver injury, intra-abdominal bleed, pneumonia, electrolyte imbalance Blood workup today includes CBC, CMP, troponin, PT PTT showed platelet count 106, INR 5.4, creatinine 2.0, BUN 54, and BnP 2119 CT chest, abdomen and pelvis with IV contrast showed acute fracture right 7 and 8 rib otherwise within normal limit CT head and CT cervical spine without contrast showed no acute abnormalities X-ray of the right knee showed no acute abnormality Admit to hospitalist for ALICIA, rib fracture, Coumadin induced coagulopathy Differential Diagnosis Differential Diagnosis: as above Vital Signs Vital Signs: Vital Signs Temperature 36.1 C L 08/28/24 11:52 Pulse Rate 66 08/28/24 11:52 Respiratory Rate 18 08/28/24 11:52 Blood Pressure 102/74 08/28/24 11:52 Pulse Oximetry 95 08/28/24 11:52 Oxygen Delivery Room Air 08/28/24 11:52 Temperature 36.1 C L 08/28/24 11:52 Pulse Rate 66 08/28/24 11:52 Respiratory Rate 18 08/28/24 11:52 Blood Pressure 102/74 08/28/24 11:52 Pulse Oximetry 95 08/28/24 11:52 Oxygen Delivery Room Air 08/28/24 11:52 Lab Data 08/28/24 12:16 08/28/24 12:16 Labs: Lab Results 08/28/24 08/28/24 Range/Units 12:16 13:15 WBC 8.4 (4.8-10.8) K/mm3 RBC 3.96 L (4.70-6.10) M/mm3 Hgb 11.1 L (12.4-15.3) g/dL Hct 35.3 L (37.0-46.0) % MCV 89.1 (78.0-102.0) fL MCH 28.0 (27.0-31.0) pg MCHC 31.4 L (32-36) g/dL RDW 15.9 H (11.6-14.4) % Plt Count 106 L (150-420) K/mm3 MPV 12.0 H (8.7-11.0) fl Immature Gran % (Auto) 0.4 H (0.0-0.0) % Neut % (Auto) 73.9 H (50.0-70.0) % Lymph % (Auto) 11.4 L (18.0-42.0) % Yancey % (Auto) 10.5 (2.0-11.0) % Eos % (Auto) 3.3 (1.0-6.0) % Baso % (Auto) 0.5 (0.0-1.0) % Lymph # (Auto) 0.96 L (1.10-4.50) K/mm3 Yancey # (Auto) 0.89 (0.10-0.90) K/mm3 Eos # (Auto) 0.28 (0.02-0.50) K/mm3 Baso # (Auto) 0.04 (0.00-0.10) K/mm3 Abs Immat Gran (auto) 0.03 H (0.00-0.00) K/mm3 Absolute Neuts (auto) 6.24 (1.70-7.20) K/mm3 Absolute Nucleated RBC 0.00 (0.00-0.00) K/mm3 Nucleated RBC % 0.0 (0-0.0) % % Immature Plt Fraction 6.7 (1.0-7.0) % PT 50.3 H (9.50-12.1) Seconds INR 5.4 H* APTT 64.2 H (23.9-30.70) Sec Sodium 134 L (136-145) mmol/L Potassium 4.8 (3.5-5.1) mmol/L Chloride 98 (98-108) mmol/L Carbon Dioxide 25 (21-32) mmol/L Anion Gap 11 (4-12) mmol/L BUN 54 H (7-18) mg/dL Creatinine 2.02 H (0.70-1.30) mg/dL Estim Creat Clear Calc 34 ml/min Estimated GFR 33 L (59 - ) Glucose 201 H (70-99) mg/dL Calculated Osmolality 298 H (285-295) mOsm/kg Calcium 8.7 (8.5-10.1) mg/dL Total Bilirubin 1.0 (0.00-1.00) mg/dL AST 17 (15-37) U/L ALT 24 (16-63) U/L Alkaline Phosphatase 143 H (46-116) U/L Troponin I 40.7 (0.00-60.4) ng/L NT-Pro-B Natriuret Pep 2119 H (0-125) pg/mL Total Protein 7.4 (6.4-8.2) g/dL Albumin 3.3 L (3.4-5.0) g/dL Lipase 85 H (16-77) U/L Urine Color Light yellow (Yellow) Urine Appearance Clear (Clear) Urine pH 5.5 (5.0-8.0) Ur Specific [place] 1.010 (1.010-1.020) Urine Protein Negative (Negative) Urine Glucose (UA) 3+ H (Negative) Urine Ketones Negative (Negative) Ur Blood (Man) Negative (Negative) Urine Nitrate Negative (Negative) Urine Bilirubin Negative (Negative) Urine Urobilinogen 0.2 (0.2-1.0) mg/dL Leukocyte Esterase Rfl Negative (Negative) CARLOS/UL Influenza A (RT-PCR) Negative (Negative) Influenza B (RT-PCR) Negative (Negative) RSV (RT-PCR) Negative (Negative) SARS-CoV-2 RNA (RT-PCR) Negative (Negative) Imaging Data Radiologist's impression: Impressions Head CT 08/28/24 13:12 IMPRESSION: 1. Chronic encephalomalacia involving the left temporal lobe and left insula. 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 2. Stable moderate nonspecific cerebral white matter disease, which likely represents chronic small vessel ischemic disease. Cervical Spine CT 08/28/24 13:16 IMPRESSION: No acute osseous abnormality cervical spine. Knee X-Ray 08/28/24 13:37 IMPRESSION: No acute osseous abnormality right knee. Total knee arthroplasty. Chest/Abdomen/Pelvis CT 08/28/24 13:40 IMPRESSION: 1. Acute fractures of right seventh and eighth ribs. 2. Mildly enlarged bilateral external iliac lymph nodes, likely reactive. ECG Data EKG #1: Attestation: I personally reviewed and interpreted this ECG as follows: Critical Care Time Critical Care Time Critical Care Time: No Discharge Plan Discharge Clinical Impression: ALICIA (acute kidney injury), Warfarin-induced coagulopathy, Closed rib fracture Patient Disposition: Still a Patient Condition: Stable Additional Instructions: admit to hospitalist Patient Language: British Prescriptions: No Action furosemide 40 mg tablet 40 mg PO BID glipizide 5 mg tablet extended release 24hr 5 mg PO DAILY allopurinol 300 mg tablet 300 mg PO DAILY gabapentin 100 mg capsule 400 mg PO DAILY sertraline 50 mg tablet 50 mg PO DAILY atorvastatin 80 mg tablet 80 mg PO HS pantoprazole 40 mg tablet,delayed release (DR/EC) 40 mg PO DAILY aspirin 81 mg Tablet 81 mg PO DAILY albuterol sulfate [Ventolin HFA] 90 mcg/actuation Hfa Aerosol Inhaler 1 puff INHALATION Q4-6H PRN (Reason: Shortness Of Breath) ropinirole 2 mg tablet 4 mg PO HS docusate sodium 100 mg Capsule 100 mg PO DAILY PRN (Reason: Constipation) hydroxyzine HCl 50 mg Tablet 50 mg PO TID MDD 3 PRN (Reason: itch) hydrocodone-acetaminophen 7.5-325 mg Tablet 1 tablet PO Q8H PRN (Reason: Pain, Moderate) warfarin 5 mg Tablet 5 mg PO DAILY Rx Instructions: dose is 6mg daily. take with 1mg tab daily. gabapentin 100 mg Tablet 800 mg PO HS Jardiance 25 mg Tablet 25 mg PO DAILY metolazone 2.5 mg Tablet 2.5 mg PO DAILY methocarbamol 500 mg Tablet 500 mg PO TID spironolactone 25 mg Tablet 25 mg PO DAILY mupirocin 2 % Ointment 1 applic TOPICAL BID Levemir FlexPen 100 unit/mL (3 mL) Insulin Pen 15 unit SUBCUT HS Trelegy Ellipta 100-62.5-25 mcg Blister With Device 1 inh INHALATION DAILY trazodone 100 mg tablet 200 mg PO HS PRN (Reason: insomnia) Sarna Original 0.5-0.5 % Lotion 1 applic TOPICAL BID tamsulosin 0.4 mg Capsule 0.4 mg PO QAM Qty: 30 0RF warfarin 1 mg tablet 2 mg PO DAILY Qty: 30 0RF Rx Instructions: Take with 5 mg for a total of 6 mg dose cephalexin 500 mg capsule 500 mg PO Q12H Qty: 10 0RF Follow-up/Referrals: Megan Infante MD [Primary Care Provider] -
--- NOTE | 2024-08-28 11:57 | ECG_ITS ---
Test Date: 2024-08-28 11:53:14 Measurements Intervals [place] Rate: 82 P: 0 MS: 0 QRS: -29 QRSD: 149 T: 119 QT: 399 QTc: 467 Interpretive Statements ATRIAL FIBRILLATION LEFT BUNDLE BRANCH BLOCK [120+ ms QRS DURATION, 80+ ms Q/S IN V1/V2, 85+ ms R IN I/aVL/V5/V6] No previous ECG available for comparison Electronically Signed On 08-29-2024 17:43:44 HAND SCUDDER by Swati Goode M.D.
[2024-08-28 12:27] LABS: Basophils Absolute Auto 0.04 K/mm3 (0.00-0.10); Basophils Percent Auto 0.5 % (0.0-1.0); Eosinophils Absolute Auto 0.28 K/mm3 (0.02-0.50); Eosinophils Percent Auto 3.3 % (1.0-6.0); Hematocrit 35.3 % (37.0-46.0); Hemoglobin 11.1 g/dL (12.4-15.3); Immature Granulocyte Absolute 0.03 K/mm3 (0.00-0.00); Immature Granulocyte Percent A 0.4 % (0.0-0.0); Immature Platelet Fraction Pct 6.7 % (1.0-7.0); Lymphocytes Absolute Auto 0.96 K/mm3 (1.10-4.50); Lymphocytes Percent Auto 11.4 % (18.0-42.0); Mean Corpuscular HGB Conc 31.4 g/dL (32-36); Mean Corpuscular Volume 89.1 fL (78.0-102.0); Monocytes Absolute Auto 0.89 K/mm3 (0.10-0.90); Monocytes Percent Auto 10.5 % (2.0-11.0); Neutrophils Absolute Auto 6.24 K/mm3 (1.70-7.20); Neutrophils Percent Auto 73.9 % (50.0-70.0); Platelet Count Result 106 K/mm3 (150-420); Red Blood Count 3.96 M/mm3 (4.70-6.10); Red Cell Distribution Width 15.9 % (11.6-14.4); White Blood Count 8.4 K/mm3 (4.8-10.8)
--- NOTE | 2024-08-28 12:41 | PC.NURSE ---
PT IS SITTING UP ON STRETCHER TEXTING ON CELL PHONE. PT RESP STATUS HAS IMPROVED AND HE IS ABLE TO SPEAK IN COMPLETE SENTENCES AT THIS TIME. PT IS REQUESTING PAIN MEDICATION, ERP IS NOTIFIED, AWAITING ORDERS. PT HAS DECLINED ABG. WILL CONTINUE TO MONITOR.
[2024-08-28 12:45] LABS: Alanine Aminotransferase 24 U/L (16-63); Albumin Level 3.3 g/dL (3.4-5.0); Alkaline Phosphatase 143 U/L (46-116); Anion Gap 11 mmol/L (4-12); Aspartate Amino Transferase 17 U/L (15-37); Blood Urea Nitrogen 54 mg/dL (7-18); Calcium 8.7 mg/dL (8.5-10.1); Carbon Dioxide 25 mmol/L (21-32); Chloride 98 mmol/L (98-108); Estimated CRCL calculation 34 ml/min; Estimated Glomerular Filt Rate 33; Glucose 201 mg/dL (70-99); Lipase 85 U/L (16-77); NT Pro B Type Natriuretic Pept 2119 pg/mL (0-125); Osmolality Calculated 298 mOsm/kg (285-295); Potassium 4.8 mmol/L (3.5-5.1); Sodium 134 mmol/L (136-145); Total Protein 7.4 g/dL (6.4-8.2)
[2024-08-28 12:46] LABS: Partial Thromboplastin Time 64.2 Sec (23.9-30.70); Prothrombin Time 50.3 Seconds (9.50-12.1); Troponin I 40.7 ng/L (0.00-60.4)
[2024-08-28 12:47] LABS: INR 5.4
[2024-08-28] MEDS: ACETAMINOPHEN 325 MG TABLET 650 MG PO (12:56)
[2024-08-28 12:57] LABS: SARS-CoV-2 RNA PCR Negative (Negative)
[2024-08-28 12:58] LABS: Influenza A QL RT-PCR Negative (Negative); Influenza B QL RT-PCR Negative (Negative); RSV RNA, RT-PCR Negative (Negative)
--- NOTE | 2024-08-28 13:32 | PC.NURSE ---
PT HAS RETURNED FROM RADIOLOGY, IS AWAITING RESULTS. PT IS CURRENTLY SLEEPING ON STRETCHER IN EXAM ROOM WITHOUT DISTRESS. URINE SPECIMEN COLLECTED AND SENT TO LAB. WILL CONTINUE TO MONITOR.
[2024-08-28 13:35] LABS: Add Urine Microscopic? NO; Appearance Urine Clear (Clear); Bilirubin Urine Negative (Negative); Blood Urine Negative (Negative); Color Urine Light Yellow (Yellow); Glucose Urine UA 3+ (Negative); Ketones Urine Negative (Negative); Leukocyte Esterase Ur Negative LEU/UL (Negative); Nitrate Urine Negative (Negative); Protein Urine Negative (Negative); Urobilinogen Urine 0.2 mg/dL (0.2-1.0); pH Urine 5.5 (5.0-8.0)
[2024-08-28] MEDS: SODIUM CHLORIDE 0.9% IV 1,000 ML 250 ML IV CONT (14:29)
[2024-08-28] MEDS: ONDANSETRON INJ 4 MG/2 ML VIAL IV PUSH (14:33)
[2024-08-28] MEDS: fentaNYL CITRATE INJ (*CRX) 100 MCG/2 ML VIAL 50 MCG IV PUSH (14:33)
--- NOTE | 2024-08-28 14:56 | PC.NURSE ---
pt has been accepted for admission to [facility] room 208, he is aware and agreeable to plan of care.
--- NOTE | 2024-08-28 15:15 | ADMGEN ---
This patient, Mendez Lay, was admitted to 2nd Floor Room 208-1. Patient/family oriented to hospital policies and general routines including ID bracelet, bed and alarms, visiting hours, pain management, procedures, bathroom and other care routines, personal items, smoking policy, room service/diet, and visiting hours. Information on how to activate the Rapid Response Team has been discussed. Patient/Family are encouraged to report perceived risks to care and to ask questions if they do not understand what they are told or what they should do.
[2024-08-28 15:25] LABS: Troponin I 44.4 ng/L (0.00-60.4)
[2024-08-28 17:12] LABS: Glucose Point of Care 171 mg/dl (65-105)
[2024-08-28] MEDS: HYDROcodone/acetaminophen (*CRX) 10-325 MG TABLET 1 TAB PO (19:22)
[2024-08-28] MEDS: MORPHINE SULFATE (*CRX) 2 MG/ML INJ IV PUSH (20:16)
[2024-08-28 20:17] LABS: Glucose Point of Care 205 mg/dl (65-105)
[2024-08-28] MEDS: SACUBITRIL/VALSARTAN 24-26 MG TABLET 1 TAB PO (20:17)
[2024-08-28] MEDS: PREGABALIN (*CRX) 50 MG CAPSULE PO (20:17)
[2024-08-28] MEDS: PREGABALIN (*CRX) 100 MG CAPSULE PO (20:17)
[2024-08-28] MEDS: traZODone HCL 50 MG TABLET 300 MG PO (20:18)
[2024-08-28] MEDS: carvediloL 3.125 MG TABLET PO (20:18)
[2024-08-28] MEDS: ATORVASTATIN 40 MG TABLET 80 MG PO (20:18)
[2024-08-28] MEDS: TOLNAFTATE 1% POWDER 45 GM BTL 1 APPLIC TOPICAL (20:31)
--- NOTE | 2024-08-28 20:35 | PC.NURSE ---
Lotrisone 15gm cream unavailable in [facility] and pharmacy, unable to apply at this time.
[2024-08-28] MEDS: HYDROcodone/acetaminophen (*CRX) 5-325 MG TABLET 1 TAB PO (23:28)
[2024-08-29] VITALS: BP 104/69; PULSE 73; RESP 20; TEMP 36.4; O2SAT 93
[2024-08-29] MEDS: MORPHINE SULFATE (*CRX) 2 MG/ML INJ IV PUSH (04:33)
[2024-08-29 05:34] LABS: Basophils Absolute Auto 0.02 K/mm3 (0.00-0.10); Basophils Percent Auto 0.3 % (0.0-1.0); Eosinophils Absolute Auto 0.28 K/mm3 (0.02-0.50); Eosinophils Percent Auto 4.4 % (1.0-6.0); Hematocrit 32.3 % (37.0-46.0); Hemoglobin 10.1 g/dL (12.4-15.3); Immature Granulocyte Absolute 0.04 K/mm3 (0.00-0.00); Immature Granulocyte Percent A 0.6 % (0.0-0.0); Lymphocytes Absolute Auto 1.36 K/mm3 (1.10-4.50); Lymphocytes Percent Auto 21.3 % (18.0-42.0); Mean Corpuscular HGB Conc 31.3 g/dL (32-36); Mean Corpuscular Volume 89.5 fL (78.0-102.0); Mean Platelet Volume 12.8 fl (8.7-11.0); Monocytes Absolute Auto 0.88 K/mm3 (0.10-0.90); Monocytes Percent Auto 13.8 % (2.0-11.0); Neutrophils Absolute Auto 3.81 K/mm3 (1.70-7.20); Neutrophils Percent Auto 59.6 % (50.0-70.0); Platelet Count Result 106 K/mm3 (150-420); Red Blood Count 3.61 M/mm3 (4.70-6.10); White Blood Count 6.4 K/mm3 (4.8-10.8)
[2024-08-29 05:48] LABS: Alanine Aminotransferase 19 U/L (16-63); Albumin Level 2.9 g/dL (3.4-5.0); Alkaline Phosphatase 127 U/L (46-116); Anion Gap 6 mmol/L (4-12); Aspartate Amino Transferase 14 U/L (15-37); Bilirubin,Total 0.9 mg/dL (0.00-1.00); Blood Urea Nitrogen 55 mg/dL (7-18); Calcium 8.6 mg/dL (8.5-10.1); Carbon Dioxide 28 mmol/L (21-32); Chloride 103 mmol/L (98-108); Estimated CRCL calculation 34 ml/min; Estimated Glomerular Filt Rate 31; Glucose 123 mg/dL (70-99); Osmolality Calculated 300 mOsm/kg (285-295); Potassium 4.8 mmol/L (3.5-5.1); Sodium 137 mmol/L (136-145); Total Protein 6.9 g/dL (6.4-8.2)
[2024-08-29 05:55] LABS: INR 4.1; Prothrombin Time 39.2 Seconds (9.50-12.1)
[2024-08-29 07:50] VITALS: BP 118/80; PULSE 79; RESP 18; TEMP 36.3; O2SAT 95
[2024-08-29 08:55] VITALS: PULSE 79
[2024-08-29] MEDS: carvediloL 3.125 MG TABLET PO ×2 (08:55→21:18)
[2024-08-29] MEDS: PREGABALIN (*CRX) 50 MG CAPSULE 150 MG PO ×2 (08:55→17:59)
[2024-08-29] MEDS: SACUBITRIL/VALSARTAN 24-26 MG TABLET 1 TAB PO ×2 (08:56→21:22)
[2024-08-29] MEDS: FOLIC ACID 1 MG TABLET PO (08:56)
[2024-08-29] MEDS: PANTOPRAZOLE 40 MG TABLET PO (08:56)
[2024-08-29] MEDS: SERTRALINE HCL 50 MG TABLET PO (08:56)
[2024-08-29] MEDS: HYDROcodone/acetaminophen (*CRX) 10-325 MG TABLET 1 TAB PO (08:56)
[2024-08-29] MEDS: BETAMETHASONE/CLOTRIMAZOLE CREAM 15 GM TUBE 1 APPLIC TOPICAL ×2 (08:57→21:18)
[2024-08-29] MEDS: FLUTICASONE/UMECLIDIN/VILANTER 100-62.5-25 MCG ELLIPTA 1 PUFF INHALATION (08:57)
[2024-08-29] MEDS: TOLNAFTATE 1% POWDER 45 GM BTL 1 APPLIC TOPICAL ×2 (09:06→21:23)
[2024-08-29 11:36] LABS: Glucose Point of Care 239 mg/dl (65-105)
[2024-08-29] MEDS: INSULIN HUMAN LISPRO (*BKC) 1,000 UNITS/10 ML VIAL SUB-Q (12:04)
[2024-08-29] MEDS: HYDROcodone/acetaminophen (*CRX) 5-325 MG TABLET 1 TAB PO ×2 (12:04→21:18)
--- NOTE | 2024-08-29 14:48 | P.HP_ITS ---
H&P: HPI History of Present Illness Date/Time: 08/29/24 14:48 Chief Complaint: Right chest wall post fall with injury Narrative: patient is a 69-year-old male who presented to the emergency department after he had had a recent fall a few days prior landing on the sidewalk and injuring his right side. Patient presented today with right sided chest pain, abdominal pain with shortness of breath and difficulty breathing. patient reports past medical history of diabetes, hypertension, hyperlipidemia, heart valve replacement on Coumadin chronic oxygen of 2 L, and TIA. patient was found to be hypoxic on admission and was requiring supplemental oxygen. patient had head CT, cervical spine CT, knee x-ray, and chest abdomen pelvis CT due to anticoagulation use which did identify acute fractures of the right 7th and 8th rib otherwise no other acute issues or hemorrhaging. labs reviewed showed acute on chronic renal failure close to baseline as well as elevated INR at 5.4. patient was admitted to the medical unit for further evaluation and treatment of acute respiratory failure with hypoxia secondary to fall and rib fractures, ALICIA on chronic, and hypercoagulability. Review of Systems Review of Systems: All systems reviewed & are unremarkable except as noted in HPI and below PMFSH Past Medical History Medical History Obstructive sleep apnea Intolerant to CPAP Chronic anemia Chronic right-sided heart failure Moderate decreased right ventricular systolic function noted on echo 12/2022 Combined systolic and diastolic congestive heart failure Echocardiogram 12/2022: EF 37% grade 2 diastolic dysfunction, mild LVH Severe pulmonary hypertension Restless leg syndrome CVA (cerebral vascular accident) Evidence of old temporal CVA noted on imaging 12/22/2023 Bilateral carotid artery stenosis Peripheral artery disease Right rib fracture Diabetes mellitus Historically poorly controlled with last A1c 10/2023 of 10.2 CKD (chronic kidney disease) Stage IV with baseline creatinine 1.4-1.8 Depression COPD (chronic obstructive pulmonary disease) Diabetic neuropathy Gout Afib On chronic anticoagulation with Coumadin CAD (coronary artery disease) Nuclear medicine stress test 01/2022: Medium area of [id number] intensity fixed defect consistent with infarction in the inferior and basal inferior knox, EF is 51% Hyperlipidemia Surgical History Surgical History History of left hip replacement History of bilateral knee replacement History of aortic valve replacement with bioprosthetic valve (~2013) History of cardiac catheterization Family History Family History Mother Tuberculosis Social History Social History Social History: The patient is for with for 46 years. His a couple of years ago. He now lives with his daughter. He ambulates with a cane. 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 He briefly smoked when he was young for 1 or 2 years. He denies any significant alcohol use or illicit substance use. Code status: Full code Smoking packs per day: 0.5 Smoking cigarettes per day: 10.0 Years smoked: 2 Smoking pack-years: 1.00 Smoking status: Former smoker Tobacco type: cigarettes Second hand tobacco smoke exposure: Yes Smoking end date: 09/02/1967 Alcohol intake: never Drinks per week: 2 Substance use: never Substance use type: does not use Do You Feel Safe in your Home?: Yes Lack of Transportation: No Lack of Food: Never True Current Housing: I Have Housing Concerned About Future Housing: No Difficulty Paying Gas/Electric Bills: No Difficulty Paying for Meds: No Currently Unemployed: No Education: High School Diploma/GED Difficulty w/ Childcare or Family Care: No Gender identity (if verbalized by the patient): Male Sexual Orientation (if Verbalized by the Patient): Straight or Heterosexual Spiritual care concerns: Yes Meds Home Medications and Allergies Home Medications ?Medication ?Instructions ?Recorded ?Confirmed ?Type albuterol sulfate 90 mcg/actuation 2 puff inhalation Q4H PRN 07/03/20 08/28/24 History aerosol inhaler (Ventolin HFA) Shortness Of Breath allopurinol 300 mg tablet 300 mg PO DAILY 07/03/20 08/28/24 History atorvastatin 80 mg tablet 80 mg PO HS 07/03/20 08/28/24 History furosemide 40 mg tablet 80 mg PO DAILY 07/03/20 08/28/24 History glipizide 5 mg tablet, extended 5 mg PO DAILY 07/03/20 08/28/24 History release 24 hr pantoprazole 40 mg tablet,delayed 40 mg PO DAILY 07/03/20 08/28/24 History release sertraline 50 mg tablet 50 mg PO DAILY 07/03/20 08/28/24 History docusate sodium 100 mg capsule 100 mg PO DAILY PRN Constipation 02/01/22 08/28/24 History empagliflozin 25 mg tablet 25 mg PO DAILY 02/09/23 08/28/24 History (Jardiance) fluticasone fur. 100 mcg-umeclid 1 inh inhalation DAILY 02/09/23 08/28/24 History 62.5 mcg-vilant 25 mcg inhalat.powder (Trelegy Ellipta) hydrocodone 7.5 mg-acetaminophen 1 tablet PO Q8H PRN Pain, Moderate 02/09/23 08/28/24 History 325 mg tablet hydroxyzine HCl 50 mg tablet 50 mg PO TID PRN itch 02/09/23 08/28/24 History trazodone 100 mg tablet 300 mg PO HS insomnia 02/09/23 08/28/24 History carvedilol 6.25 mg tablet 3.125 mg PO Q12H 08/28/24 08/28/24 History folic acid 1 mg tablet 1 mg PO DAILY 08/28/24 08/28/24 History nystatin 100,000 unit/gram topical 1 applic topical BID 08/28/24 08/28/24 History powder (Nystop) pregabalin 150 mg capsule (Lyrica) 150 mg PO BID 08/28/24 08/28/24 History sacubitril 24 mg-valsartan 26 mg 1 tablet PO BID 08/28/24 08/28/24 History tablet (Entresto) semaglutide 1 mg/dose (4 mg/3 mL) 1 mg subcut WEEKLY 08/28/24 08/28/24 History subcutaneous pen injector (Ozempic) semaglutide 1 mg/dose (4 mg/3 mL) 1 mg subcut WEEKLY 08/28/24 08/28/24 History subcutaneous pen injector (Ozempic) warfarin 1 mg tablet 2 mg PO DAILY 08/28/24 08/28/24 History Allergies Allergy/AdvReac Type Severity Reaction Status Date / Time No Known Allergies Allergy Verified 08/28/24 11:50 Vital Signs Vital Signs - 24 hr 08/28/24 14:57 08/28/24 15:21 08/28/24 20:00 Temperature 98.0 F Pulse Rate 73 73 Respiratory Rate 18 16 16 Blood Pressure 108/62 Pulse Oximetry 96 90 90 Oxygen Delivery Room Air Room Air Room Air 08/28/24 20:18 08/29/24 00:00 08/29/24 07:50 Temperature 97.6 F 97.3 F L Pulse Rate 73 73 79 Respiratory Rate 20 18 Blood Pressure 104/69 118/80 Pulse Oximetry 93 95 Oxygen Delivery Room Air Room Air 08/29/24 08:55 Temperature Pulse Rate 79 Respiratory Rate Blood Pressure Pulse Oximetry Oxygen Delivery Exam Narrative: * GENERAL: Alert and oriented x 3 but lethargic still reporting chest pain worse with inspiration. No acute distress. * EYES: PERRLA. * HEENT: Moist mucous membranes. * LUNGS: Clear to auscultation bilaterally. No accessory muscle use. * CARDIOVASCULAR: Regular rate and rhythm. No murmur. No JVD. S1-S2 * ABDOMEN: Soft, non tenderness rounded. No palpable masses. * EXTREMITIES: No edema. Non-tender * SKIN: No rashes or lesions. Skin warm, dry. multiple deep tissue bruising along patient's right side * NEUROLOGIC: No focal neurological deficits. CN II-XII grossly intact * PSYCHIATRIC: Appropriate mood and affect. Good judgement and insight. H&P: Results Labs Labs: Short CBC 08/29/24 Range/Units 05:27 WBC 6.4 (4.8-10.8) K/mm3 Hgb 10.1 L (12.4-15.3) g/dL Hct 32.3 L (37.0-46.0) % Plt Count 106 L (150-420) K/mm3 [facility] 08/29/24 05:27 Sodium 137 Potassium 4.8 Chloride 103 Carbon Dioxide 28 BUN 55 H Creatinine 2.12 H Glucose 123 H Calcium 8.6 Cardiac Enzymes 08/28/24 Range/Units 14:56 Troponin I 44.4 (0.00-60.4) ng/L Liver Function 08/29/24 Range/Units 05:27 Total Bilirubin 0.9 (0.00-1.00) mg/dL AST 14 L (15-37) U/L ALT 19 (16-63) U/L Alkaline Phosphatase 127 H (46-116) U/L Albumin 2.9 L (3.4-5.0) g/dL Imaging CT scan - chest: Radiologist's impression: EXAMINATION: CT chest abdomen pelvis w con DATE: 08/28/2024 13:27 INDICATION: Right chest and abdominal injury. TECHNIQUE: Computed tomography (CT) of the chest, abdomen, and pelvis was performed with 100 mL Omnipaque 350 intravenous contrast. Automated exposure control and iterative reconstruction technique were employed. The dose-length product was 1712.04 mGy-cm. COMPARISON: CT chest 02/01/2024, CT abdomen and pelvis 12/21/2023, chest CT 05/13/2016 FINDINGS: CHEST CT: The lungs demonstrate mild atelectasis. Calcified left lung nodules are consistent with old granulomatous disease. No pleural effusion. Cardiomegaly is noted. There are changes of aortic valve replacement. There are coronary artery calcifications. There is mild bilateral gynecomastia. There are bridging endplate osteophytes at multiple levels in the spine, consistent with diffuse idiopathic skeletal hyperostosis (DISH). There are changes of anterior fusion procedure in cervical spine. There are old healed bilateral rib fractures. There are acute fractures of right seventh and eighth ribs. ABDOMEN/PELVIS CT: The liver and spleen are normal. There are gallstones in the gallbladder, which is normal in size. The pancreas and left adrenal gland are normal. There is a 4.7 cm mass in right adrenal gland, stable from 05/13/2016, likely an adenoma. There are cysts in the kidneys measuring up to 5.7 cm on the left. There is an umbilical hernia containing fat. The prostate is moderately enlarged. There are no dilated loops of bowel. The appendix is not visualized. There are no pathologically enlarged lymph nodes. There are mildly enlarged bilateral external iliac nodes. There is a total left hip arthroplasty. There is severe lumbar spondylosis. IMPRESSION: 1. Acute fractures of right seventh and eighth ribs. 2. Mildly enlarged bilateral external iliac lymph nodes, likely reactive. Assessment and Plan Assessment and plan (1) Fall: Onset Date: 02/01/22 Code(s): W19.XXXA - Unspecified fall, initial encounter Status: Acute Assessment and Plan: patient with multiple admissions for unsteady gait and falls * PT/OT pending evaluations plan to go to swing bed for further strength training (2) Right rib fracture: Code(s): S22.31XA - Fracture of one rib, right side, initial encounter for closed fracture Status: Acute Assessment and Plan: * CT showing a 7th and 8th right rib fracture * pain control * incentive spirometer * monitor for signs of pneumonia (3) Congestive heart failure: Code(s): I50.9 - Heart failure, unspecified Status: Chronic Assessment and Plan: * Resumed Jasono, JACKIE, and Jarlavinia * does not appear in exacerbation (4) Status post mechanical aortic valve replacement: Onset Date: ~2013 Code(s): Z95.2 - Presence of prosthetic heart valve Status: Acute Assessment and Plan: * Daily INR * keep at 2.5 3.0 * adjust Coumadin as needed (5) Warfarin-induced coagulopathy: Code(s): D68.32 - Hemorrhagic disorder due to extrinsic circulating anticoagulants; T45.515A - Adverse effect of anticoagulants, initial encounter Status: Acute Assessment and Plan: patient's INR was 5.4 POA * patient with history of prosthetic heart valves * INR daily we will need to keep between 2.5 and 3 * currently holding Coumadin can resume once down to 3 (6) Diabetes mellitus: Code(s): E11.9 - Type 2 diabetes mellitus without complications Status: Acute Assessment and Plan: * Accu-Cheks a.c. HS * sliding scale insulin * hold oral diabetic medications * encourage lifestyle modifications and weight loss * Optimize Ravin inhibitors and statins. * Watch for hypoglycemia/hypoglycemic protocol ordered (7) Acute kidney injury superimposed on CKD: Code(s): N17.9 - Acute kidney failure, unspecified; N18.9 - Chronic kidney disease, unspecified Status: Acute Assessment and Plan: * Patient close to baseline 2.00 * NO Fluids CHF with reduced ejection fraction * IV fluids given in ED * Avoid nephrotoxic drugs. * Monitor antihypertensive drug therapy. * Avoid NSAIDs. * Routine CMP monitoring GFR. * Monitor electrolytes especially potassium. (8) COPD (chronic obstructive pulmonary disease): Code(s): J44.9 - Chronic obstructive pulmonary disease, unspecified Status: Acute Assessment and Plan: * not in exacerbation * resume p.r.n. inhalers * oxygen p.r.n. reported patient is supposed to wear 2 L supplemental oxygen at home Plan Code status: Full code per patient DVT prophylaxis: Coumadin been on hold now for hypercoagulability Stress ulcer prophylaxis: NA PT/OT notes: SWING BED Disposition: patient continues admission for pain control and acute respiratory failure with hypoxia secondary to recent fall with rib fractures patient is supposed to wear 2 L supplemental oxygen at home however when he arrived he was on room air reports he is having difficulty taking breaths secondary to rib fractures. Patient's INR elevated at 5.4 will need to hold Coumadin and resume when it is 3 patient has history of prosthetic heart valves. Plan is to discharge patient to swing bed likely tomorrow or the next day. Quality VTE Prophylaxis VTE prophylaxis: pharmacologic ordered -Patient's previous records reviewed on admission -ER notes reviewed in detail on admission -discussed all findings and current treatment plan with patient/Family/POA -Consultations reviewed for recommendations -Patient's disposition for safe discharge discussed with case finisher Dictation performed by [employer] direct speech recognition software, therefore threshing department supervisor variants and typographical errors may occur. Hospitalist [facility] [place] Advance Care Plan I have confirmed that the patient's Advanced Care Plan is present, code status is documented, or surrogate decision maker is listed in patient medical record.: Yes Medication Reconciliation I have utilized all available resources to obtain, update and review the patients current medications (includes all prescriptions, OTC, herbals, cannabis, and nutritional supplements).: Yes The patient is not eligible for med reconciliation; the patient is in a emergent medical situation where delaying treatment would jeopardize the patients health.: No
[2024-08-29 16:30] VITALS: BP 104/83; PULSE 86; RESP 18; TEMP 36.4; O2SAT 94
[2024-08-29 17:02] LABS: Glucose Point of Care 157 mg/dl (65-105)
[2024-08-29] MEDS: traZODone HCL 50 MG TABLET 300 MG PO (21:17)
[2024-08-29 21:18] VITALS: PULSE 76
[2024-08-29] MEDS: hydrOXYzine HCL 25 MG TABLET 50 MG PO (21:18)
[2024-08-29] MEDS: ATORVASTATIN 40 MG TABLET 80 MG PO (21:22)
[2024-08-29 21:37] LABS: Glucose Point of Care 218 mg/dl (65-105)
[2024-08-30] VITALS (15 sets, daily range): BP systolic 83–125; BP diastolic 50–90; PULSE 61–121; RESP 18–28; TEMP 36.5–37; O2SAT 72–96
[2024-08-30 05:14] LABS: Basophils Absolute Auto 0.04 K/mm3 (0.00-0.10); Basophils Percent Auto 0.4 % (0.0-1.0); Eosinophils Absolute Auto 0.24 K/mm3 (0.02-0.50); Eosinophils Percent Auto 2.6 % (1.0-6.0); Hematocrit 36.3 % (37.0-46.0); Hemoglobin 11.3 g/dL (12.4-15.3); Immature Granulocyte Absolute 0.03 K/mm3 (0.00-0.00); Immature Granulocyte Percent A 0.3 % (0.0-0.0); Lymphocytes Absolute Auto 1.12 K/mm3 (1.10-4.50); Lymphocytes Percent Auto 12.1 % (18.0-42.0); Mean Corpuscular HGB Conc 31.1 g/dL (32-36); Mean Corpuscular Hemoglobin 28.1 pg (27.0-31.0); Mean Corpuscular Volume 90.3 fL (78.0-102.0); Mean Platelet Volume 12.4 fl (8.7-11.0); Monocytes Absolute Auto 1.14 K/mm3 (0.10-0.90); Monocytes Percent Auto 12.3 % (2.0-11.0); Neutrophils Absolute Auto 6.68 K/mm3 (1.70-7.20); Neutrophils Percent Auto 72.3 % (50.0-70.0); Platelet Count Result 112 K/mm3 (150-420); Red Blood Count 4.02 M/mm3 (4.70-6.10); Red Cell Distribution Width 16.1 % (11.6-14.4); White Blood Count 9.3 K/mm3 (4.8-10.8)
[2024-08-30 05:27] LABS: INR 2.7
[2024-08-30 05:30] LABS: Alanine Aminotransferase 25 U/L (16-63); Albumin Level 3.3 g/dL (3.4-5.0); Alkaline Phosphatase 149 U/L (46-116); Anion Gap 11 mmol/L (4-12); Aspartate Amino Transferase 19 U/L (15-37); Blood Urea Nitrogen 61 mg/dL (7-18); Carbon Dioxide 23 mmol/L (21-32); Chloride 100 mmol/L (98-108); Estimated CRCL calculation 29 ml/min; Estimated Glomerular Filt Rate 25; Glucose 153 mg/dL (70-99); Osmolality Calculated 298 mOsm/kg (285-295); Potassium 5.8 mmol/L (3.5-5.1); Sodium 134 mmol/L (136-145); Total Protein 7.6 g/dL (6.4-8.2)
[2024-08-30] MEDS: ALBUTEROL SULFATE (*SP) INHALER 2 PUFF INHALATION (07:20)
--- NOTE | 2024-08-30 08:08 | PC.NURSE ---
Contacted [facility] r/t decreased O2 saturations. New orders for STAT ABG, Portable CXR, Duonebs placed by practitioner.
[2024-08-30 08:17] LABS: Glucose Point of Care 209 mg/dl (65-105)
[2024-08-30] MEDS: INSULIN HUMAN LISPRO (*BKC) 1,000 UNITS/10 ML VIAL SUB-Q ×2 (08:37→12:05)
[2024-08-30] MEDS: HYDROcodone/acetaminophen (*CRX) 5-325 MG TABLET 1 TAB PO (08:39)
[2024-08-30 08:41] LABS: Base Excess ABG -7.4 mmol/L (0-2); HCO3 ABG 18.3 mmol/L (23-29); Oxygen Content ABG 16.5 %vol (16.0-22.0); Oxygen Saturation ABG 97.6 % (95-97); Oxyhemoglobin 95.7 % (94-100); PCO2 ABG 37.8 mmHg (35-45); PO2 ABG 118.6 mmHg (75-85)
[2024-08-30 08:42] LABS: Device NASAL CANNULA; Site Drawn RIGHT BRACHIAL
[2024-08-30] MEDS: FOLIC ACID 1 MG TABLET PO (09:27)
[2024-08-30] MEDS: PREGABALIN (*CRX) 50 MG CAPSULE 150 MG PO ×2 (09:27→16:44)
[2024-08-30] MEDS: SACUBITRIL/VALSARTAN 24-26 MG TABLET 1 TAB PO ×2 (09:27→20:47)
[2024-08-30] MEDS: BETAMETHASONE/CLOTRIMAZOLE CREAM 15 GM TUBE 1 APPLIC TOPICAL ×2 (09:27→20:44)
[2024-08-30] MEDS: PANTOPRAZOLE 40 MG TABLET PO (09:27)
[2024-08-30] MEDS: SERTRALINE HCL 50 MG TABLET PO (09:27)
[2024-08-30] MEDS: carvediloL 3.125 MG TABLET PO (09:28)
[2024-08-30] MEDS: TOLNAFTATE 1% POWDER 45 GM BTL 1 APPLIC TOPICAL ×2 (09:29→20:44)
[2024-08-30] MEDS: FLUTICASONE/UMECLIDIN/VILANTER 100-62.5-25 MCG ELLIPTA 1 PUFF INHALATION (09:34)
[2024-08-30] MEDS: IPRATROPIUM 0.5 MG/ALBUTEROL SULFATE 2.5 MG AMPUL.NEB 3 ML INHALATION ×2 (11:34→17:06)
[2024-08-30 11:58] LABS: Glucose Point of Care 220 mg/dl (65-105)
--- NOTE | 2024-08-30 12:35 | P.PNIM_ITS ---
Progress Note: A&P Assessment and Plan (1) Fall: Onset Date: 02/01/22 Code(s): W19.XXXA - Unspecified fall, initial encounter Status: Acute Assessment and Plan: patient with multiple admissions for unsteady gait and falls 08/30 * continue PT/OT * continue fall precautions * awaiting authorization for swing bed admission * Case coordination following (2) Right rib fracture: Code(s): S22.31XA - Fracture of one rib, right side, initial encounter for closed fracture Status: Acute Assessment and Plan: 08/30 * CT showing a 7th and 8th right rib fracture * pain control with non narcotic pain meds only * incentive spirometer while awake * monitor for signs of pneumonia (3) Congestive heart failure: Code(s): I50.9 - Heart failure, unspecified Status: Chronic Assessment and Plan: 08/30 * Resumed Entresto, BB, Jardiance, and Lasix * CXR showing cardiomegaly with interstitial edema * patient does have anasarca with notable crackles to right lung base * Lasix 40 mg IV push given today * will get echocardiogram tomorrow (4) Status post mechanical aortic valve replacement: Onset Date: ~2013 Code(s): Z95.2 - Presence of prosthetic heart valve Status: Acute Assessment and Plan: * Daily INR * keep at 2.5 3.0 * adjust Coumadin as needed 08/30 * today INR 2.7 * will start Coumadin 2 mg tonight (5) Warfarin-induced coagulopathy: Code(s): D68.32 - Hemorrhagic disorder due to extrinsic circulating anticoagulants; T45.515A - Adverse effect of anticoagulants, initial encounter Status: Acute Assessment and Plan: patient's INR was 5.4 POA * patient with history of prosthetic heart valves * INR daily we will need to keep between 2.5 and 3 * currently holding Coumadin can resume once down to 3 08/30 * INR down to 2.7 * will start 2 mg of Coumadin tonight * continue to trend (6) Diabetes mellitus: Code(s): E11.9 - Type 2 diabetes mellitus without complications Status: Acute Assessment and Plan: 08/30 * Blood sugars ranging 218-298 * Hgb A1C 9.6 on 12/23/2023 * will repeat hemoglobin A1c * Accu checks AC/HS * high-dose SSI ordered * Lantus 16 units ordered for tonight * hypoglycemic protocol in place * Diabetic diet ordered * hold glipizide and Ozempic * will continue Jardiance for CHF benefit (7) Acute kidney injury superimposed on CKD: Code(s): N17.9 - Acute kidney failure, unspecified; N18.9 - Chronic kidney disease, unspecified Status: Acute Assessment and Plan: * Patient close to baseline 2.00-2.50 * NO Fluids CHF with reduced ejection fraction * IV fluids given in ED * Avoid nephrotoxic drugs. * Monitor antihypertensive drug therapy. * Avoid NSAIDs. * Routine CMP monitoring GFR. * Monitor electrolytes especially potassium. 08/30 * restarted Lasix today, crackles noted to right lung bases * creatinine 2.54 today * continue to trend (8) COPD (chronic obstructive pulmonary disease): Code(s): J44.9 - Chronic obstructive pulmonary disease, unspecified Status: Acute Assessment and Plan: 08/30 * resume p.r.n. inhalers * oxygen p.r.n. reported patient is supposed to wear 2 L supplemental oxygen at home * now requiring 4 L nasal cannula * DuoNebs ordered * wean O2 for sat greater than 90% (9) Anasarca: Code(s): R60.1 - Generalized edema Status: Acute Assessment and Plan: 08/30 * swelling noted hips, lower abdomen, bilateral legs. * likely due to cardiorenal syndrome (10) Hyperkalemia: Code(s): E87.5 - Hyperkalemia Status: Acute Assessment and Plan: 08/30 * potassium 5.8 * will give 40 mg IV push Lasix now and Lokelma 10 mg x1 now (11) Altered mental status: Code(s): R41.82 - Altered mental status, unspecified Status: Acute Assessment and Plan: 08/30 * patient wakes up to voice and is oriented x3, very sleepy * he received [place] this morning and morphine overnight * likely retained med due to his creatinine clearance which is estimated to be 29 and creatinine 2.54 which appears to be his baseline * Will check an ammonia level, liver enzymes were normal, CT showed normal size liver however has anasarca present which may be due to cardiorenal syndrome * will give a dose of Narcan today * [place] discontinued * we will continue with just Tylenol for pain control of his rib fractures Time Spent With Patient Time with patient: Greater than 35 minutes Subjective Date/time seen: 08/30/24 12:35 Interval history: Interval history: This is a 69 year old male With significant past medical history of COPD requiring 2 L nasal cannula baseline, hypertension, hyperlipidemia, diabetes, TIA, AFib, SHEELA, congestive heart failure, pulmonary hypertension, CVA, p eripheral artery disease, depression, diabetic neuropathy, gout, coronary artery disease who presented to the hospital on 08/28/2024 evaluation of shortness of breath / dyspnea. Patient sustained a fall about 2 weeks ago landing on his right chest and sustained rib fractures. Workup in the hospital included a CT of the head which showed chronic encephalomalacia involving the left temporal lobe and left insula, old infarct in the right cerebellum, stable moderate nonspecific cerebral white matter disease likely representing chronic small- vessel ischemic disease. Cervical spine CT shown no acute osseous abnormalities. Right knee x-ray shows total knee arthroplasty with no acute osseous abnormality. CT of the chest abdomen and pelvis showed acute fractures of right 7th and 8th ribs, mildly enlarged bilateral external iliac lymph nodes likely reactive. Initial labs showed a normal white blood cell count of 8.4, RBC 3.96, hemoglobin 11.1, platelet count 106, INR 5.4, sodium 134, creatinine 2.02, EGFR 33, blood sugar ranging 171-201, alk-phos 143, proBNP 2119, lipase 85. UA was obtained and showed 3+ urine glucose, otherwise negative. Respiratory panel was negative for influenza a and B, RSV, COVID. EKG showed AFib with left bundle branch block with a rate of 82, QTC 467. subjective: Patient having altered mental status today with increase O2 requirement of 4 L nasal cannula. His baseline O2 requirement is 2L. He is alert to voice and oriented x3 however very sleepy during my assessment. He states he did not sleep well however was given [place] this a.m. for pain. Chest x-ray today showed cardiomegaly with interstitial edema. Labs and imaging reviewed. Review of Systems Review of Systems: All systems reviewed & are unremarkable except as noted in HPI and below Exam Narrative: General: In no acute distress, well nourished Head: atraumatic, no encephalopathy Eyes: PERRLA 2mm bilaterally, sclera clear ENT: moist mucous membranes, nasal passages clear Neck: supple, no JVD, no adenopathy, trachea midline Cardiac: Normal S1 and S2. Irregular rhythm, rate controlled, Atrial fibrillation. No murmur, gallops or friction rubs, peripheral pulses intact. Respiratory: RLL and LLL crackles in bases, currently on 4L NC. No adventitious lung sounds. Gastrointestinal: soft, non-distended, non-tender, normoactive bowel sounds. Anasarca :dubon catheter in place Extremities: moves all extremities well, no edema, good ROM, strength 5/5, Anasarca present Skin:Right knee abrasion with scab, RLE abrasion with dressing in place, right knee echymosis. Neuro: Alert to voice and oriented x3, minimally interactive Objective Data Vital Signs Vital Signs: Vital Signs - 24 hr 08/29/24 16:30 08/29/24 21:18 08/30/24 00:00 Temperature 97.6 F 97.7 F Pulse Rate 86 76 78 Respiratory Rate 18 20 Blood Pressure 104/83 123/73 Pulse Oximetry 94 92 Oxygen Delivery Room Air Room Air Oxygen Flow Rate 08/30/24 08:00 08/30/24 08:00 08/30/24 09:28 Temperature 98.6 F Pulse Rate 121 H 121 H 98 Respiratory Rate 18 18 Blood Pressure 125/68 Pulse Oximetry 72 L 85 L Oxygen Delivery Room Air Nasal Cannula Oxygen Flow Rate 4 08/30/24 11:35 08/30/24 11:50 Temperature Pulse Rate 96 95 Respiratory Rate 22 H 22 H Blood Pressure Pulse Oximetry 94 95 Oxygen Delivery Oxygen Flow Rate 2 2 Intake/Output Intake/Output: Intake & Output 08/27/24 08/28/24 08/29/24 08/30/24 23:59 23:59 23:59 23:59 Intake Total 1720.0 2690 1000 Output Total 802 350 Balance 1720.0 1888 650 Meds/Results Medications: Active Medications Generic Name Dose Route Start Last Admin Trade Name Freq PRN Reason Stop Dose Admin Acetaminophen 650 mg 08/28/24 15:19 Acetaminophen 325 Mg Tablet PO Q4H PRN Mild Pain (1-3) or Fever Hydrocodone Bitart/Acetaminophen 1 tab 08/28/24 15:19 08/30/24 08:39 Hydrocodone/Acetaminophen (*Crx) 5-325 Mg Tablet PO 1 tab Q4H PRN Administration Severe Pain 7-10 Albuterol 2 puff 08/28/24 19:06 08/30/24 07:20 Albuterol Sulfate (*Sp) Inhaler INHALATION 2 puff Q4HRT PRN Administration Shortness Of Breath Albuterol/Ipratropium 3 ml 08/30/24 12:30 08/30/24 11:34 Ipratropium 0.5 Mg/Albuterol Sulfate 2.5 Mg Ampul.Neb 3 Ml INHALATION 3 ml Q6HRT SHAUNNA Administration Atorvastatin Calcium 80 mg 08/28/24 21:00 08/29/24 21:22 Atorvastatin 40 Mg Tablet PO 80 mg HS SHAUNNA Administration Carvedilol 3.125 mg 08/29/24 09:00 08/30/24 09:28 Carvedilol 3.125 Mg Tablet PO 3.125 mg Q12HR SHAUNNA Administration Clotrimazole 1 applic 08/28/24 21:00 08/30/24 09:27 Betamethasone/Clotrimazole Cream 15 Gm Tube TOPICAL 1 applic Q12HR SHAUNNA Administration Dextrose 12.5 gm 08/28/24 15:22 Dextrose 50% 25 Gm/50 Ml Syringe IV PUSH PRN PRN Hypoglycemia Protocol Docusate Sodium 100 mg 08/28/24 19:06 Docusate Sodium 100 Mg Capsule PO DAILY PRN Constipation Fluticasone/Umeclidinium/Vilanterol 1 puff 08/29/24 09:00 08/30/24 09:34 Fluticasone/Umeclidin/Vilanter 100-62.5-25 Mcg Ellipta INHALATION 1 puff DAILYRT SHAUNNA Administration Folic Acid 1 mg 08/29/24 09:00 08/30/24 09:27 Folic Acid 1 Mg Tablet PO 1 mg DAILY SHAUNNA Administration Glucagon 1 mg 08/28/24 15:22 Glucagon For Inj 1 Mg Vial IM PRN PRN Hypoglycemia Protocol Glucose 15 gm 08/28/24 15:22 Glucose Oral Gel 15 Gm Of Glucse In 37.5 Gm Tube PO PRN PRN Hypoglycemia Protocol Hydroxyzine HCl 50 mg 08/28/24 19:06 08/29/24 21:18 Hydroxyzine Hcl 25 Mg Tablet PO 50 mg TID PRN Administration itch Dextrose 1,000 mls @ 100 mls/hr 08/28/24 15:22 Dextrose 5% 1,000 Ml IVPB PRN PRN Hypoglycemia Protocol Insulin Human Lispro 2 - 5 units 08/28/24 17:00 08/30/24 08:37 Insulin Human Lispro (*Bkc) 1,000 Units/10 Ml Vial SUB-Q 2 units TIDWM SHAUNNA Administration Protocol Naloxone HCl 0.1 mg 08/28/24 15:19 Naloxone Hcl 0.4 Mg/Ml Vial IV PUSH Q2M PRN Opiate Reversal Ondansetron HCl 4 mg 08/28/24 15:19 Ondansetron Inj 4 Mg/2 Ml Vial IV PUSH Q6H PRN Nausea And Vomiting Pantoprazole Sodium 40 mg 08/29/24 09:00 08/30/24 09:27 Pantoprazole 40 Mg Tablet PO 40 mg DAILY SHAUNNA Administration Perflutren Lipid Microsphere 0 ml 08/30/24 12:34 Perflutren Lipid Microspheres 1.5 Ml Vial Diluted To 10 Ml Total Volume IV PUSH 09/02/24 12:34 ONCE PRN adequate visualization Protocol Pregabalin 150 mg 08/29/24 09:00 08/30/24 09:27 Pregabalin (*Crx) 50 Mg Capsule PO 150 mg BID SHAUNNA Administration Sacubitril/Valsartan 1 tab 08/29/24 09:00 08/30/24 09:27 Sacubitril/Valsartan 24-26 Mg Tablet PO 1 tab Q12HR SHAUNNA Administration Sertraline HCl 50 mg 08/29/24 09:00 08/30/24 09:27 Sertraline Hcl 50 Mg Tablet PO 50 mg DAILY SHAUNNA Administration Tolnaftate 1 applic 08/28/24 21:00 08/30/24 09:29 Tolnaftate 1% Powder 45 Gm Btl TOPICAL 1 applic Q12HR SHAUNNA Administration Tramadol HCl 50 mg 08/29/24 14:51 Tramadol Hcl (*Crx) 50 Mg Tablet PO Q4H PRN Pain Rated 4-6 Trazodone HCl 300 mg 08/28/24 21:00 08/29/24 21:17 Trazodone Hcl 50 Mg Tablet PO 300 mg HS SHAUNNA Administration Radiology Results: ITS Impressions Head CT 08/28/24 13:12 IMPRESSION: 1. Chronic encephalomalacia involving the left temporal lobe and left insula. 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 2. Stable moderate nonspecific cerebral white matter disease, which likely represents chronic small vessel ischemic disease. Cervical Spine CT 08/28/24 13:16 IMPRESSION: No acute osseous abnormality cervical spine. Knee X-Ray 08/28/24 13:37 IMPRESSION: No acute osseous abnormality right knee. Total knee arthroplasty. Chest/Abdomen/Pelvis CT 08/28/24 13:40 IMPRESSION: 1. Acute fractures of right seventh and eighth ribs. 2. Mildly enlarged bilateral external iliac lymph nodes, likely reactive. Chest X-Ray 08/30/24 08:12 Impression: 1: Cardiomegaly with interstitial edema. Labs Labs: Laboratory Results - last 24 hr 08/29/24 08/29/24 08/30/24 16:58 21:36 05:09 WBC 9.3 RBC 4.02 L Hgb 11.3 L Hct 36.3 L MCV 90.3 MCH 28.1 MCHC 31.1 L RDW 16.1 H Plt Count 112 L MPV 12.4 H Immature Gran % (Auto) 0.3 H Neut % (Auto) 72.3 H Lymph % (Auto) 12.1 L Steele % (Auto) 12.3 H Eos % (Auto) 2.6 Baso % (Auto) 0.4 Lymph # (Auto) 1.12 Steele # (Auto) 1.14 H Eos # (Auto) 0.24 Baso # (Auto) 0.04 Abs Immat Gran (auto) 0.03 H Absolute Neuts (auto) 6.68 Absolute Nucleated RBC 0.00 Nucleated RBC % 0.0 PT 27.0 H INR 2.7 Puncture Site ABG pH ABG pCO2 ABG pO2 ABG PO2/FiO2 Ratio ABG HCO3 ABG O2 Saturation ABG O2 Content ABG Base Excess A-a Gradient Oxyhemoglobin O2 Delivery Device O2 Liters/Min Sodium 134 L Potassium 5.8 H Chloride 100 Carbon Dioxide 23 Anion Gap 11 BUN 61 H Creatinine 2.54 H Estim Creat Clear Calc 29 Estimated GFR 25 L Glucose 153 H POC Capillary Glucose 157 H 218 H Calculated Osmolality 298 H Calcium 9.0 Total Bilirubin 1.0 AST 19 ALT 25 Alkaline Phosphatase 149 H Total Protein 7.6 Albumin 3.3 L 08/30/24 08/30/24 08/30/24 08:11 08:39 11:42 WBC RBC Hgb Hct MCV MCH MCHC RDW Plt Count MPV Immature Gran % (Auto) Neut % (Auto) Lymph % (Auto) Steele % (Auto) Eos % (Auto) Baso % (Auto) Lymph # (Auto) Steele # (Auto) Eos # (Auto) Baso # (Auto) Abs Immat Gran (auto) Absolute Neuts (auto) Absolute Nucleated RBC Nucleated RBC % PT INR Puncture Site Right brachial ABG pH 7.30 L ABG pCO2 37.8 ABG pO2 118.6 H ABG PO2/FiO2 Ratio Not Reportable ABG HCO3 18.3 L ABG O2 Saturation 97.6 H ABG O2 Content 16.5 ABG Base Excess -7.4 L A-a Gradient Not Reportable Oxyhemoglobin 95.7 O2 Delivery Device Nasal cannula O2 Liters/Min 4.0 Sodium Potassium Chloride Carbon Dioxide Anion Gap BUN Creatinine Estim Creat Clear Calc Estimated GFR Glucose POC Capillary Glucose 209 H 220 H Calculated Osmolality Calcium Total Bilirubin AST ALT Alkaline Phosphatase Total Protein Albumin Quality VTE Prophylaxis VTE prophylaxis: pharmacologic ordered
--- NOTE | 2024-08-30 14:27 | PC.NURSE ---
16 amharic dubon catheter inserted per protochol/orders. Patient tolerated well. Clear yellow urine noted in bag at time of insert with no hematuria.
[2024-08-30] MEDS: SODIUM ZIRCONIUM CYCLOSILICATE 5 GM POWD.PACK 10 GM PO (14:36)
[2024-08-30] MEDS: FUROSEMIDE INJ 40 MG/4 ML VIAL IV PUSH (14:36)
[2024-08-30] MEDS: NALOXONE HCL 0.4 MG/ML VIAL IV PUSH (15:32)
[2024-08-30 15:44] LABS: Ammonia 19 umol/L (11-32)
[2024-08-30 16:27] LABS: Magnesium 2.4 mg/dL (1.8-2.4)
[2024-08-30 16:28] LABS: NT Pro B Type Natriuretic Pept 7121 pg/mL (0-125)
[2024-08-30] MEDS: SODIUM BICARBONATE TAB 650 MG TABLET PO (16:45)
[2024-08-30] MEDS: WARFARIN (*PBKC) 2 MG TABLET PO (16:45)
[2024-08-30 16:47] LABS: Glucose Point of Care 157 mg/dl (65-105)
[2024-08-30 17:49] LABS: Add Urine Microscopic? NO; Appearance Urine Clear (Clear); Bilirubin Urine Negative (Negative); Blood Urine Negative (Negative); Color Urine Yellow (Yellow); Glucose Urine UA 2+ (Negative); Ketones Urine Negative (Negative); Leukocyte Esterase Ur Negative LEU/UL (Negative); Nitrate Urine Negative (Negative); Protein Urine Negative (Negative); Specific Grav Ur 1.015 (1.010-1.020); Urobilinogen Urine 0.2 mg/dL (0.2-1.0); pH Urine 5.5 (5.0-8.0)
[2024-08-30 18:37] LABS: Alanine Aminotransferase 24 U/L (16-63); Albumin Level 2.9 g/dL (3.4-5.0); Alkaline Phosphatase 132 U/L (46-116); Anion Gap 8 mmol/L (4-12); Aspartate Amino Transferase 18 U/L (15-37); Bilirubin,Total 1.2 mg/dL (0.00-1.00); Blood Urea Nitrogen 74 mg/dL (7-18); Calcium 8.6 mg/dL (8.5-10.1); Carbon Dioxide 24 mmol/L (21-32); Chloride 103 mmol/L (98-108); Estimated CRCL calculation 26 ml/min; Estimated Glomerular Filt Rate 23; Glucose 177 mg/dL (70-99); Osmolality Calculated 305 mOsm/kg (285-295); Potassium 5.9 mmol/L (3.5-5.1); Sodium 135 mmol/L (136-145)
[2024-08-30 18:38] LABS: Creatinine Urine 111.99 mg/dL (40-278); Total Protein Urine Random 17.2 mg/dL (0.0-11.9); Ur Ttl Prot Creatinine Ratio 0.15 mg/mg (0-0.20)
--- NOTE | 2024-08-30 19:12 | PC.NURSE ---
Brenna Pete, EXTRACTIONS TECHNOLOGIST/Hospitalist, notified that patient c/o cough. New order received. Hospitalist also notified that current lab results are available for her to look at.
--- NOTE | 2024-08-30 19:50 | PC.NURSE ---
Pt noted on assessment of this Rn to have labored breathing and extreme SOB and effective communication, he becomes SOB when talking and is unable to complete full sentences w/o becoming SOB. Pt is on 2.5L NC O2 and noted to have abd breathing present and ineffective cough. Lungs are bilat diminished w/ some coarse rhonchi in bases. Pt noted to have tight swelling in bilat lower legs w/ edema to his scrotum area. Noted blood tinged urine in dubon cath w/ very little ouput present. Updated report given to battery recharger Fany.
[2024-08-30 20:05] LABS: Glucose Point of Care 215 mg/dl (65-105)
[2024-08-30] MEDS: SODIUM POLYSTYRENE SULFONONATE 15 GM/60 ML BTL PO (20:30)
[2024-08-30] MEDS: DEXTROSE 50% 25 GM/50 ML SYRINGE IV PUSH (20:32)
[2024-08-30] MEDS: INSULIN HUMAN REGULAR (*BKC) 1,000 UNITS/10 ML VIAL 10 UNITS IV PUSH (20:35)
[2024-08-30] MEDS: SODIUM BICARBONATE 8.4% 50 MEQ/50 ML SYRINGE IV PUSH (20:37)
[2024-08-30] MEDS: BUMETANIDE INJ 1 MG/4 ML VIAL IV PUSH (20:40)
--- NOTE | 2024-08-30 20:41 | PC.NURSE ---
Brenna Pete, SEAT MENDER/Hospitalist put in new orders after looking over lab work. New order for telemetry obtained. Updates given on vital signs, status, hematuria.
[2024-08-30] MEDS: ATORVASTATIN 40 MG TABLET 80 MG PO (20:43)
--- NOTE | 2024-08-30 22:15 | PC.NURSE ---
Pt tachypneic and has labored breathing at rest and is difficult to understand when he speaks. Orders obtained from RESEARCH LIBRARIAN per charge account clerk and pt being monitored and new meds to be given for pts symptoms and lab values. Explained to pt about medication being given, pt noted to have soft BP's ...comntinuing to monitor and update consumer insight manager Patty who updates RESEARCH LIBRARIAN nile Peoples.
[2024-08-31] VITALS (10 sets, daily range): BP systolic 103–112; BP diastolic 63–73; PULSE 66–82; RESP 22–26; TEMP 36.6–36.9; O2SAT 93–98
[2024-08-31 00:17] LABS: Alanine Aminotransferase 22 U/L (16-63); Albumin Level 2.8 g/dL (3.4-5.0); Alkaline Phosphatase 133 U/L (46-116); Anion Gap 4 mmol/L (4-12); Aspartate Amino Transferase 19 U/L (15-37); Bilirubin,Total 1.2 mg/dL (0.00-1.00); Blood Urea Nitrogen 76 mg/dL (7-18); Calcium 8.7 mg/dL (8.5-10.1); Carbon Dioxide 27 mmol/L (21-32); Chloride 101 mmol/L (98-108); Estimated CRCL calculation 24 ml/min; Estimated Glomerular Filt Rate 21; Glucose 67 mg/dL (70-99); Osmolality Calculated 294 mOsm/kg (285-295); Sodium 132 mmol/L (136-145); Total Protein 6.8 g/dL (6.4-8.2)
[2024-08-31] MEDS: IPRATROPIUM 0.5 MG/ALBUTEROL SULFATE 2.5 MG AMPUL.NEB 3 ML INHALATION ×2 (00:22→05:53)
--- NOTE | 2024-08-31 00:34 | PC.NURSE ---
Noted lab results back, broker in charge called FINISHING MANAGER/Hospitalist and no new orders given. Noted pt to be lethargic and slightly difficult to awaken, needing much encouragement to open eyes and respond. Breathing tx given as per order, minimal improvment noted p tx. Pt still has dim. bs w/ expiratory wheeze noted. Pts Blood sugar per lab noted to be 67. Pt given apple juice to drink and he was able to comply w/ getting juice down.
--- NOTE | 2024-08-31 00:39 | PC.NURSE ---
Brenna Pete NP, notified of lab results. She said Labs looked OK and to call with lab results in the AM if there was a significant change in lab values.
[2024-08-31 00:59] LABS: Glucose Point of Care 113 mg/dl (65-105)
--- NOTE | 2024-08-31 00:59 | PC.NURSE ---
Pts daughter Bonnie called and given update on pt status. She will come in morning to see her father and await more labs in morning. Bonnie stated she isn't against transfer if this is what he needs. She voiced concern over pts. increased swelling and edema.
[2024-08-31 01:10] LABS: Glucose Point of Care 92 mg/dl (65-105)
--- NOTE | 2024-08-31 01:35 | PC.NURSE ---
Pt is noted lethargic when going to assess for rounds, sternal rub needed to get pt to slightly awaken. VSS at this time but pt has noted tachypnea and abdominal breathing noted w/ RR of 24-26. Pt is noted very weak and has weak cough reflex, minimal output noted in dubon that is blood tinged urine.
--- NOTE | 2024-08-31 01:45 | PC.NURSE ---
This RN called Erin Peoples, BUSINESS MANAGEMENT SPECIALIST/Hospitalist to update on pt status of weakness and requiring a sternal rub to get pt to awaken. Informed BUSINESS MANAGEMENT SPECIALIST of pts midnight blood sugar reading of 67 and that pt was given apple juice in small sips. Also explained to BUSINESS MANAGEMENT SPECIALIST that after giving sips pt would begin to cough and not sure if aspirating some of what he drinks. Informed her that his BS did come up to 92 after given the juice. After updating BUSINESS MANAGEMENT SPECIALIST on pt status and suggesting another ABG be drawn, FLOR Khan ordered a CBC and wants current labs as ordered to be drawn again at 0500. Continuing to monitor pt and remains on monitor showing Afib. Minimal urine output noted in dubon that is still red in color. YUNI Khan charge informed of order from BUSINESS MANAGEMENT SPECIALIST.
[2024-08-31 02:03] LABS: Basophils Absolute Auto 0.03 K/mm3 (0.00-0.10); Basophils Percent Auto 0.3 % (0.0-1.0); Eosinophils Absolute Auto 0.07 K/mm3 (0.02-0.50); Eosinophils Percent Auto 0.7 % (1.0-6.0); Hematocrit 31.3 % (37.0-46.0); Hemoglobin 9.7 g/dL (12.4-15.3); Immature Granulocyte Absolute 0.04 K/mm3 (0.00-0.00); Immature Granulocyte Percent A 0.4 % (0.0-0.0); Immature Platelet Fraction Pct 6.4 % (1.0-7.0); Lymphocytes Absolute Auto 0.73 K/mm3 (1.10-4.50); Lymphocytes Percent Auto 6.9 % (18.0-42.0); Mean Corpuscular Hemoglobin 28.4 pg (27.0-31.0); Mean Corpuscular Volume 91.5 fL (78.0-102.0); Monocytes Percent Auto 12.3 % (2.0-11.0); Neutrophils Absolute Auto 8.42 K/mm3 (1.70-7.20); Neutrophils Percent Auto 79.4 % (50.0-70.0); Platelet Count Result 81 K/mm3 (150-420); Red Blood Count 3.42 M/mm3 (4.70-6.10); Red Cell Distribution Width 16.1 % (11.6-14.4); White Blood Count 10.6 K/mm3 (4.8-10.8)
--- NOTE | 2024-08-31 02:17 | PC.NURSE ---
Unable to reach Brenna Pete NP, regarding lab values. Lab results left on RESISTANCE WELDING MACHINE OPERATOR's voice mail.
--- NOTE | 2024-08-31 04:15 | PC.NURSE ---
Brenna Pete NP, here to examine patient.
--- NOTE | 2024-08-31 04:20 | PC.NURSE ---
Lab here to draw blood
--- NOTE | 2024-08-31 04:26 | P.PNIM_ITS ---
Progress Note: A&P Assessment and Plan (1) Fall: Onset Date: 02/01/22 Code(s): W19.XXXA - Unspecified fall, initial encounter Status: Acute Assessment and Plan: patient with multiple admissions for unsteady gait and falls 08/30 * continue PT/OT * continue fall precautions * awaiting authorization for swing bed admission * Case coordination following (2) Right rib fracture: Code(s): S22.31XA - Fracture of one rib, right side, initial encounter for closed fracture Status: Acute Assessment and Plan: 08/30 * CT showing a 7th and 8th right rib fracture * pain control with non narcotic pain meds only * incentive spirometer while awake * monitor for signs of pneumonia (3) Congestive heart failure: Code(s): I50.9 - Heart failure, unspecified Status: Chronic Assessment and Plan: 08/30 * Resumed Entresto, BB, Jardiance, and Lasix * CXR showing cardiomegaly with interstitial edema * patient does have anasarca with notable crackles to right lung base * Lasix 40 mg IV push given today * will get echocardiogram tomorrow (4) Status post mechanical aortic valve replacement: Onset Date: ~2013 Code(s): Z95.2 - Presence of prosthetic heart valve Status: Acute Assessment and Plan: * Daily INR * keep at 2.5 3.0 * adjust Coumadin as needed 08/30 * today INR 2.7 * will start Coumadin 2 mg tonight (5) Warfarin-induced coagulopathy: Code(s): D68.32 - Hemorrhagic disorder due to extrinsic circulating anticoagulants; T45.515A - Adverse effect of anticoagulants, initial encounter Status: Acute Assessment and Plan: patient's INR was 5.4 POA * patient with history of prosthetic heart valves * INR daily we will need to keep between 2.5 and 3 * currently holding Coumadin can resume once down to 3 08/30 * INR down to 2.7 * will start 2 mg of Coumadin tonight * continue to trend (6) Diabetes mellitus: Code(s): E11.9 - Type 2 diabetes mellitus without complications Status: Acute Assessment and Plan: 08/30 * Blood sugars ranging 218-298 * Hgb A1C 9.6 on 12/23/2023 * will repeat hemoglobin A1c * Accu checks AC/HS * high-dose SSI ordered * Lantus 16 units ordered for tonight * hypoglycemic protocol in place * Diabetic diet ordered * hold glipizide and Ozempic * will continue Jardiance for CHF benefit (7) Acute kidney injury superimposed on CKD: Code(s): N17.9 - Acute kidney failure, unspecified; N18.9 - Chronic kidney disease, unspecified Status: Acute Assessment and Plan: * Patient close to baseline 2.00-2.50 * NO Fluids CHF with reduced ejection fraction * IV fluids given in ED * Avoid nephrotoxic drugs. * Monitor antihypertensive drug therapy. * Avoid NSAIDs. * Routine CMP monitoring GFR. * Monitor electrolytes especially potassium. 08/30 * restarted Lasix today, crackles noted to right lung bases * creatinine 2.54 today * continue to trend (8) COPD (chronic obstructive pulmonary disease): Code(s): J44.9 - Chronic obstructive pulmonary disease, unspecified Status: Acute Assessment and Plan: 08/30 * resume p.r.n. inhalers * oxygen p.r.n. reported patient is supposed to wear 2 L supplemental oxygen at home * now requiring 4 L nasal cannula * DuoNebs ordered * wean O2 for sat greater than 90% (9) Anasarca: Code(s): R60.1 - Generalized edema Status: Acute Assessment and Plan: 08/30 * swelling noted hips, lower abdomen, bilateral legs. * likely due to cardiorenal syndrome (10) Hyperkalemia: Code(s): E87.5 - Hyperkalemia Status: Acute Assessment and Plan: 08/30 * potassium 5.8 * will give 40 mg IV push Lasix now and Lokelma 10 mg x1 now (11) Altered mental status: Code(s): R41.82 - Altered mental status, unspecified Status: Acute Assessment and Plan: 08/30 * patient wakes up to voice and is oriented x3, very sleepy * he received [place] this morning and morphine overnight * likely retained med due to his creatinine clearance which is estimated to be 29 and creatinine 2.54 which appears to be his baseline * Will check an ammonia level, liver enzymes were normal, CT showed normal size liver however has anasarca present which may be due to cardiorenal syndrome * will give a dose of Narcan today * Cairo discontinued * we will continue with just Tylenol for pain control of his rib fractures Subjective Date/time seen: 08/31/24 03:50 Interval history: Interval history: This is a 69 year old male With significant past medical history of COPD requiring 2 L nasal cannula baseline, hypertension, hyperlipidemia, diabetes, TIA, AFib, SHEELA, congestive heart failure, pulmonary hypertension, CVA, peripheral artery disease, depression, diabetic neuropathy, gout, coronary artery disease who presented to the hospital on 08/28/2024 evaluation of shortness of breath / dyspnea. Patient sustained a fall about 2 weeks ago landing on his right chest and sustained rib fractures. Workup in the hospital included a CT of the head which showed chronic encephalomalacia involving the left temporal lobe and left insula, old infarct in the right cerebellum, stable moderate nonspecific cerebral white matter disease likely representing chronic small-vessel ischemic disease. Cervical spine CT shown no acute osseous abnormalities. Right knee x-ray shows total knee arthroplasty with no acute osseous abnormality. CT of the chest abdomen and pelvis showed acute fractures of right 7th and 8th ribs, mildly enlarged bilateral external iliac lymph nodes likely reactive. Initial labs showed a normal white blood cell count of 8.4, RBC 3.96, hemoglobin 11.1, platelet count 106, INR 5.4, sodium 134, creatinine 2.02, EGFR 33, blood sugar ranging 171-201, alk-phos 143, proBNP 2119, lipase 85. UA was obtained and showed 3+ urine glucose, otherwise negative. Respiratory panel was negative for influenza a and B, RSV, COVID. EKG showed AFib with left bundle branch block with a rate of 82, QTC 467. Subjective: Review of Systems Review of Systems: All systems reviewed & are unremarkable except as noted in HPI and below Exam Narrative: General: In no acute distress, well nourished Cardiac: Normal S1 and S2. Irregular rhythm, rate controlled, Atrial fibrillation. No murmur, gallops or friction rubs, peripheral pulses intact. Respiratory: Lungs clear to auscultation, currently on 2.5L NC. No adventitious lung sounds. Gastrointestinal: soft, non-distended, non-tender, hypoactive bowel sounds. Anasarca : ayaka with red sediment Extremities: moves all extremities well, BLE pitting edema, Anasarca present Skin:Right knee abrasion with scab, RLE abrasion with dressing in place, right knee ecchymosis. Neuro: Alert to voice and oriented x3, interactive Objective Data Vital Signs Vital Signs: Vital Signs - 24 hr 08/30/24 08:00 08/30/24 08:00 08/30/24 09:28 Temperature 98.6 F Pulse Rate 121 H 121 H 98 Respiratory Rate 18 18 Blood Pressure 125/68 Pulse Oximetry 72 L 85 L Oxygen Delivery Room Air Nasal Cannula Oxygen Flow Rate 4 08/30/24 11:35 08/30/24 11:50 08/30/24 16:00 Temperature 98.2 F Pulse Rate 96 95 61 Respiratory Rate 22 H 22 H 20 Blood Pressure 103/90 Pulse Oximetry 94 95 95 Oxygen Delivery Room Air Oxygen Flow Rate 2 2 08/30/24 17:05 08/30/24 17:15 08/30/24 19:30 Temperature Pulse Rate 88 92 Respiratory Rate 20 20 28 H Blood Pressure 87/57 L Pulse Oximetry 94 96 92 Oxygen Delivery Nasal Cannula Oxygen Flow Rate 2.5 08/30/24 20:00 08/30/24 20:00 08/30/24 20:30 Temperature Pulse Rate 78 80 Respiratory Rate 28 H 28 H Blood Pressure 103/51 L Pulse Oximetry 92 93 Oxygen Delivery Nasal Cannula Nasal Cannula Oxygen Flow Rate 2.5 2.5 08/30/24 21:15 08/30/24 22:00 08/30/24 23:00 Temperature Pulse Rate 71 74 Respiratory Rate 24 H 24 H 26 H Blood Pressure 100/58 L 92/50 L 83/57 L Pulse Oximetry 94 94 96 Oxygen Delivery Nasal Cannula Nasal Cannula Nasal Cannula Oxygen Flow Rate 2.5 2.5 2.5 08/31/24 00:00 08/31/24 00:00 08/31/24 00:27 Temperature 98.3 F Pulse Rate 74 74 78 Respiratory Rate 24 H 26 H Blood Pressure 112/73 Pulse Oximetry 95 95 Oxygen Delivery Nasal Cannula Oxygen Flow Rate 2.5 2.5 08/31/24 00:45 08/31/24 03:50 08/31/24 04:00 Temperature 98.5 F Pulse Rate 80 80 73 Respiratory Rate 22 H 24 H Blood Pressure 104/63 Pulse Oximetry 95 95 Oxygen Delivery Nasal Cannula Oxygen Flow Rate 2.5 2.5 Intake/Output Intake/Output: Intake & Output 08/28/24 08/29/24 08/30/24 08/31/24 23:59 23:59 23:59 23:59 Intake Total 1720.0 2690 1450 Output Total 802 1201 Balance 1720.0 1848 249 Meds/Results Medications: Active Medications Generic Name Dose Route Start Last Admin Trade Name Freq PRN Reason Stop Dose Admin Acetaminophen 650 mg 08/28/24 15:19 Acetaminophen 325 Mg Tablet PO Q4H PRN Mild Pain (1-3) or Fever Albuterol 2 puff 08/28/24 19:06 08/30/24 07:20 Albuterol Sulfate (*Sp) Inhaler INHALATION 2 puff Q4HRT PRN Administration Shortness Of Breath Albuterol/Ipratropium 3 ml 08/30/24 12:30 08/31/24 00:22 Ipratropium 0.5 Mg/Albuterol Sulfate 2.5 Mg Ampul.Neb 3 Ml INHALATION 3 ml Q6HRT [facility] Administration Allopurinol 300 mg 08/31/24 09:00 Allopurinol 300 Mg Tablet PO DAILY [facility] Atorvastatin Calcium 80 mg 08/28/24 21:00 08/30/24 20:43 Atorvastatin 40 Mg Tablet PO 80 mg HS [facility] Administration Benzonatate 200 mg 08/31/24 09:00 Benzonatate 100 Mg Capsule PO TID [facility] Carvedilol 3.125 mg 08/29/24 09:00 08/30/24 20:46 Carvedilol 3.125 Mg Tablet PO Not Given Q12HR [facility] Clotrimazole 1 applic 08/28/24 21:00 08/30/24 20:44 Betamethasone/Clotrimazole Cream 15 Gm Tube TOPICAL 1 applic Q12HR [facility] Administration Dextrose 12.5 gm 08/28/24 15:22 Dextrose 50% 25 Gm/50 Ml Syringe IV PUSH PRN PRN Hypoglycemia Protocol Docusate Sodium 100 mg 08/28/24 19:06 Docusate Sodium 100 Mg Capsule PO DAILY PRN Constipation Empagliflozin 25 mg 08/31/24 09:00 Empagliflozin 25 Mg Tablet PO DAILY [facility] Fluticasone/Umeclidinium/Vilanterol 1 puff 08/29/24 09:00 08/30/24 09:34 Fluticasone/Umeclidin/Vilanter 100-62.5-25 Mcg Ellipta INHALATION 1 puff DAILYRT [facility] Administration Folic Acid 1 mg 08/29/24 09:00 08/30/24 09:27 Folic Acid 1 Mg Tablet PO 1 mg DAILY [facility] Administration Furosemide 80 mg 08/31/24 09:00 Furosemide 40 Mg Tablet PO DAILY [facility] Glucagon 1 mg 08/28/24 15:22 Glucagon For Inj 1 Mg Vial IM PRN PRN Hypoglycemia Protocol Glucose 15 gm 08/28/24 15:22 Glucose Oral Gel 15 Gm Of Glucse In 37.5 Gm Tube PO PRN PRN Hypoglycemia Protocol Hydroxyzine HCl 50 mg 08/28/24 19:06 08/29/24 21:18 Hydroxyzine Hcl 25 Mg Tablet PO 50 mg TID PRN Administration itch Dextrose 1,000 mls @ 100 mls/hr 08/28/24 15:22 Dextrose 5% 1,000 Ml IVPB PRN PRN Hypoglycemia Protocol Sodium Chloride 500 mls @ 500 mls/hr 08/31/24 04:18 Normal Saline Iv IV CONT 08/31/24 05:17 .Q1H ONE Insulin Glargine 16 units 08/30/24 21:00 08/30/24 20:58 Insulin Glargine (*Bkc) 1,000 Units/10 Ml Vial 0.15 units/kg (16 units) Not Given SUB-Q HS [facility] Insulin Human Lispro 4 - 8 units 08/30/24 17:00 08/30/24 16:43 Insulin Human Lispro (*Bkc) 1,000 Units/10 Ml Vial SUB-Q Not Given TIDWM [facility] Protocol Naloxone HCl 0.1 mg 08/28/24 15:19 Naloxone Hcl 0.4 Mg/Ml Vial IV PUSH Q2M PRN Opiate Reversal Ondansetron HCl 4 mg 08/28/24 15:19 Ondansetron Inj 4 Mg/2 Ml Vial IV PUSH Q6H PRN Nausea And Vomiting Pantoprazole Sodium 40 mg 08/29/24 09:00 08/30/24 09:27 Pantoprazole 40 Mg Tablet PO 40 mg DAILY [facility] Administration Perflutren Lipid Microsphere 0 ml 08/30/24 12:34 Perflutren Lipid Microspheres 1.5 Ml Vial Diluted To 10 Ml Total Volume IV PUSH 09/02/24 12:34 ONCE PRN adequate visualization Protocol Pregabalin 150 mg 08/29/24 09:00 08/30/24 16:44 Pregabalin (*Crx) 50 Mg Capsule PO 150 mg BID [facility] Administration Sacubitril/Valsartan 1 tab 08/29/24 09:00 08/30/24 20:47 Sacubitril/Valsartan 24-26 Mg Tablet PO 1 tab Q12HR [facility] Administration Sertraline HCl 50 mg 08/29/24 09:00 08/30/24 09:27 Sertraline Hcl 50 Mg Tablet PO 50 mg DAILY [facility] Administration Sodium Bicarbonate 650 mg 08/30/24 17:00 08/30/24 16:45 Sodium Bicarbonate Tab 650 Mg Tablet PO 650 mg BID [facility] Administration Tolnaftate 1 applic 08/28/24 21:00 08/30/24 20:44 Tolnaftate 1% Powder 45 Gm Btl TOPICAL 1 applic Q12HR [facility] Administration Tramadol HCl 50 mg 08/29/24 14:51 Tramadol Hcl (*Crx) 50 Mg Tablet PO Q4H PRN Pain Rated 4-6 Trazodone HCl 300 mg 08/28/24 21:00 08/30/24 20:49 Trazodone Hcl 50 Mg Tablet PO Not Given HS [facility] Warfarin Sodium 2 mg 08/30/24 17:00 08/30/24 16:45 Warfarin (*Pbkc) 2 Mg Tablet PO 2 mg DAILY@1700 [facility] Administration Radiology Results: ITS Impressions Head CT 08/28/24 13:12 IMPRESSION: 1. Chronic encephalomalacia involving the left temporal lobe and left insula. 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 2. Stable moderate nonspecific cerebral white matter disease, which likely represents chronic small vessel ischemic disease. Cervical Spine CT 08/28/24 13:16 IMPRESSION: No acute osseous abnormality cervical spine. Knee X-Ray 08/28/24 13:37 IMPRESSION: No acute osseous abnormality right knee. Total knee arthroplasty. Chest/Abdomen/Pelvis CT 08/28/24 13:40 IMPRESSION: 1. Acute fractures of right seventh and eighth ribs. 2. Mildly enlarged bilateral external iliac lymph nodes, likely reactive. Chest X-Ray 08/30/24 08:12 Impression: 1: Cardiomegaly with interstitial edema. Labs Labs: Laboratory Results - last 24 hr 08/30/24 08/30/24 08/30/24 05:09 08:11 08:39 WBC 9.3 RBC 4.02 L Hgb 11.3 L Hct 36.3 L MCV 90.3 MCH 28.1 MCHC 31.1 L RDW 16.1 H Plt Count 112 L MPV 12.4 H Immature Gran % (Auto) 0.3 H Neut % (Auto) 72.3 H Lymph % (Auto) 12.1 L Dewey % (Auto) 12.3 H Eos % (Auto) 2.6 Baso % (Auto) 0.4 Lymph # (Auto) 1.12 Dewey # (Auto) 1.14 H Eos # (Auto) 0.24 Baso # (Auto) 0.04 Abs Immat Gran (auto) 0.03 H Absolute Neuts (auto) 6.68 Absolute Nucleated RBC 0.00 Nucleated RBC % 0.0 % Immature Plt Fraction PT 27.0 H INR 2.7 Puncture Site Right brachial ABG pH 7.30 L ABG pCO2 37.8 ABG pO2 118.6 H ABG PO2/FiO2 Ratio Not Reportable ABG HCO3 18.3 L ABG O2 Saturation 97.6 H ABG O2 Content 16.5 ABG Base Excess -7.4 L A-a Gradient Not Reportable Oxyhemoglobin 95.7 O2 Delivery Device Nasal cannula O2 Liters/Min 4.0 Sodium 134 L Potassium 5.8 H Chloride 100 Carbon Dioxide 23 Anion Gap 11 BUN 61 H Creatinine 2.54 H Estim Creat Clear Calc 29 Estimated GFR 25 L Glucose 153 H POC Capillary Glucose 209 H Hemoglobin A1c Calculated Osmolality 298 H Calcium 9.0 Magnesium Total Bilirubin 1.0 AST 19 ALT 25 Alkaline Phosphatase 149 H Ammonia NT-Pro-B Natriuret Pep Total Protein 7.6 Albumin 3.3 L Urine Color Urine Appearance Urine pH Ur Specific Randolph Urine Protein Urine Glucose (UA) Urine Ketones Ur Blood (Man) Urine Nitrate Urine Bilirubin Urine Urobilinogen Leukocyte Esterase Rfl U Random Total Protein Urine Creatinine Protein/Creat Ratio 2 08/30/24 08/30/24 08/30/24 11:42 15:07 15:36 WBC RBC Hgb Hct MCV MCH MCHC RDW Plt Count MPV Immature Gran % (Auto) Neut % (Auto) Lymph % (Auto) Dewey % (Auto) Eos % (Auto) Baso % (Auto) Lymph # (Auto) Dewey # (Auto) Eos # (Auto) Baso # (Auto) Abs Immat Gran (auto) Absolute Neuts (auto) Absolute Nucleated RBC Nucleated RBC % % Immature Plt Fraction PT INR Puncture Site ABG pH ABG pCO2 ABG pO2 ABG PO2/FiO2 Ratio ABG HCO3 ABG O2 Saturation ABG O2 Content ABG Base Excess A-a Gradient Oxyhemoglobin O2 Delivery Device O2 Liters/Min Sodium Potassium Chloride Carbon Dioxide Anion Gap BUN Creatinine Estim Creat Clear Calc Estimated GFR Glucose POC Capillary Glucose 220 H Hemoglobin A1c 7.0 H Calculated Osmolality Calcium Magnesium 2.4 Total Bilirubin AST ALT Alkaline Phosphatase Ammonia 19 NT-Pro-B Natriuret Pep Total Protein Albumin Urine Color Urine Appearance Urine pH Ur Specific Randolph Urine Protein Urine Glucose (UA) Urine Ketones Ur Blood (Man) Urine Nitrate Urine Bilirubin Urine Urobilinogen Leukocyte Esterase Rfl U Random Total Protein Urine Creatinine Protein/Creat Ratio 2 08/30/24 08/30/24 08/30/24 15:39 16:41 17:38 WBC RBC Hgb Hct MCV MCH MCHC RDW Plt Count MPV Immature Gran % (Auto) Neut % (Auto) Lymph % (Auto) Dewey % (Auto) Eos % (Auto) Baso % (Auto) Lymph # (Auto) Dewey # (Auto) Eos # (Auto) Baso # (Auto) Abs Immat Gran (auto) Absolute Neuts (auto) Absolute Nucleated RBC Nucleated RBC % % Immature Plt Fraction PT INR Puncture Site ABG pH ABG pCO2 ABG pO2 ABG PO2/FiO2 Ratio ABG HCO3 ABG O2 Saturation ABG O2 Content ABG Base Excess A-a Gradient Oxyhemoglobin O2 Delivery Device O2 Liters/Min Sodium Potassium Chloride Carbon Dioxide Anion Gap BUN Creatinine Estim Creat Clear Calc Estimated GFR Glucose POC Capillary Glucose 157 H Hemoglobin A1c Calculated Osmolality Calcium Magnesium Total Bilirubin AST ALT Alkaline Phosphatase Ammonia NT-Pro-B Natriuret Pep 7121 H Total Protein Albumin Urine Color Yellow Urine Appearance Clear Urine pH 5.5 Ur Specific Randolph 1.015 Urine Protein Negative Urine Glucose (UA) 2+ H Urine Ketones Negative Ur Blood (Man) Negative Urine Nitrate Negative Urine Bilirubin Negative Urine Urobilinogen 0.2 Leukocyte Esterase Rfl Negative U Random Total Protein 17.2 H Urine Creatinine 111.99 Protein/Creat Ratio 2 0.15 08/30/24 08/30/24 08/30/24 18:17 20:03 21:49 WBC RBC Hgb Hct MCV MCH MCHC RDW Plt Count MPV Immature Gran % (Auto) Neut % (Auto) Lymph % (Auto) Dewey % (Auto) Eos % (Auto) Baso % (Auto) Lymph # (Auto) Dewey # (Auto) Eos # (Auto) Baso # (Auto) Abs Immat Gran (auto) Absolute Neuts (auto) Absolute Nucleated RBC Nucleated RBC % % Immature Plt Fraction PT INR Puncture Site ABG pH ABG pCO2 ABG pO2 ABG PO2/FiO2 Ratio ABG HCO3 ABG O2 Saturation ABG O2 Content ABG Base Excess A-a Gradient Oxyhemoglobin O2 Delivery Device O2 Liters/Min Sodium 135 L Potassium 5.9 H Chloride 103 Carbon Dioxide 24 Anion Gap 8 BUN 74 H Creatinine 2.79 H Estim Creat Clear Calc 26 Estimated GFR 23 L Glucose 177 H POC Capillary Glucose 215 H 113 H Hemoglobin A1c Calculated Osmolality 305 H Calcium 8.6 Magnesium Total Bilirubin 1.2 H AST 18 ALT 24 Alkaline Phosphatase 132 H Ammonia NT-Pro-B Natriuret Pep Total Protein 7.0 Albumin 2.9 L Urine Color Urine Appearance Urine pH Ur Specific Randolph Urine Protein Urine Glucose (UA) Urine Ketones Ur Blood (Man) Urine Nitrate Urine Bilirubin Urine Urobilinogen Leukocyte Esterase Rfl U Random Total Protein Urine Creatinine Protein/Creat Ratio 2 08/31/24 08/31/24 08/31/24 00:00 01:08 01:57 WBC 10.6 RBC 3.42 L Hgb 9.7 L Hct 31.3 L MCV 91.5 MCH 28.4 MCHC 31.0 L RDW 16.1 H Plt Count 81 L MPV 12.0 H Immature Gran % (Auto) 0.4 H Neut % (Auto) 79.4 H Lymph % (Auto) 6.9 L Dewey % (Auto) 12.3 H Eos % (Auto) 0.7 L Baso % (Auto) 0.3 Lymph # (Auto) 0.73 L Dewey # (Auto) 1.30 H Eos # (Auto) 0.07 Baso # (Auto) 0.03 Abs Immat Gran (auto) 0.04 H Absolute Neuts (auto) 8.42 H Absolute Nucleated RBC 0.00 Nucleated RBC % 0.0 % Immature Plt Fraction 6.4 PT INR Puncture Site ABG pH ABG pCO2 ABG pO2 ABG PO2/FiO2 Ratio ABG HCO3 ABG O2 Saturation ABG O2 Content ABG Base Excess A-a Gradient Oxyhemoglobin O2 Delivery Device O2 Liters/Min Sodium 132 L Potassium 5.0 Chloride 101 Carbon Dioxide 27 Anion Gap 4 BUN 76 H Creatinine 3.00 H Estim Creat Clear Calc 24 Estimated GFR 21 L Glucose 67 L POC Capillary Glucose 92 Hemoglobin A1c Calculated Osmolality 294 Calcium 8.7 Magnesium Total Bilirubin 1.2 H AST 19 ALT 22 Alkaline Phosphatase 133 H Ammonia NT-Pro-B Natriuret Pep Total Protein 6.8 Albumin 2.8 L Urine Color Urine Appearance Urine pH Ur Specific Randolph Urine Protein Urine Glucose (UA) Urine Ketones Ur Blood (Man) Urine Nitrate Urine Bilirubin Urine Urobilinogen Leukocyte Esterase Rfl U Random Total Protein Urine Creatinine Protein/Creat Ratio 2 Quality VTE Prophylaxis VTE prophylaxis: pharmacologic ordered
--- NOTE | 2024-08-31 04:30 | PC.NURSE ---
Radiology here to do CXR
[2024-08-31 04:32] LABS: Glucose Point of Care 112 mg/dl (65-105)
--- NOTE | 2024-08-31 04:32 | PC.NURSE ---
Pts blood sugar is 112 at this time, reported to supervisor lending activities. Lab here to draw blood per new orders that have been placed.
[2024-08-31] MEDS: SODIUM CHLORIDE 0.9% IV 500 ML IV CONT (04:39)
[2024-08-31 04:49] LABS: Basophils Absolute Auto 0.02 K/mm3 (0.00-0.10); Basophils Percent Auto 0.2 % (0.0-1.0); Eosinophils Absolute Auto 0.07 K/mm3 (0.02-0.50); Eosinophils Percent Auto 0.7 % (1.0-6.0); Hematocrit 32.8 % (37.0-46.0); Hemoglobin 10.2 g/dL (12.4-15.3); Immature Granulocyte Absolute 0.05 K/mm3 (0.00-0.00); Immature Granulocyte Percent A 0.5 % (0.0-0.0); Immature Platelet Fraction Pct 6.7 % (1.0-7.0); Lymphocytes Absolute Auto 0.88 K/mm3 (1.10-4.50); Lymphocytes Percent Auto 8.5 % (18.0-42.0); Mean Corpuscular HGB Conc 31.1 g/dL (32-36); Mean Corpuscular Hemoglobin 28.5 pg (27.0-31.0); Mean Corpuscular Volume 91.6 fL (78.0-102.0); Mean Platelet Volume 12.9 fl (8.7-11.0); Monocytes Absolute Auto 1.24 K/mm3 (0.10-0.90); Monocytes Percent Auto 11.9 % (2.0-11.0); Neutrophils Absolute Auto 8.15 K/mm3 (1.70-7.20); Neutrophils Percent Auto 78.2 % (50.0-70.0); Platelet Count Result 81 K/mm3 (150-420); Red Blood Count 3.58 M/mm3 (4.70-6.10); White Blood Count 10.4 K/mm3 (4.8-10.8)
[2024-08-31 05:05] LABS: Base Excess ABG -2.9 mmol/L (0-2); Oxygen Content ABG 14.4 %vol (16.0-22.0); Oxygen Saturation ABG 96.1 % (95-97); Oxyhemoglobin 94.8 % (94-100); PCO2 ABG 44.5 mmHg (35-45); PO2 ABG 95.1 mmHg (75-85); pH ABG 7.33 (7.35-7.45)
[2024-08-31 05:07] LABS: Device NASAL CANNULA; Liters per Minute 2.5 LPM; Modified Allen's Test Pass; Site Drawn LEFT RADIAL
[2024-08-31 05:15] LABS: INR 1.8; Prothrombin Time 18.8 Seconds (9.50-12.1)
[2024-08-31 05:18] LABS: Alanine Aminotransferase 23 U/L (16-63); Albumin Level 2.8 g/dL (3.4-5.0); Alkaline Phosphatase 122 U/L (46-116); Anion Gap 7 mmol/L (4-12); Aspartate Amino Transferase 19 U/L (15-37); Bilirubin,Total 1.3 mg/dL (0.00-1.00); Blood Urea Nitrogen 79 mg/dL (7-18); Calcium 8.6 mg/dL (8.5-10.1); Carbon Dioxide 27 mmol/L (21-32); Chloride 104 mmol/L (98-108); Estimated CRCL calculation 24 ml/min; Estimated Glomerular Filt Rate 20; Glucose 101 mg/dL (70-99); Osmolality Calculated 309 mOsm/kg (285-295); Potassium 5.3 mmol/L (3.5-5.1); Sodium 138 mmol/L (136-145); Total Protein 6.9 g/dL (6.4-8.2)
[2024-08-31 05:35] LABS: NT Pro B Type Natriuretic Pept 10555 pg/mL (0-125)
--- NOTE | 2024-08-31 05:40 | P.TS_ITS ---
Transfer Discharge Sum: Prov Provider Date of admission: 08/28/24 14:24 Primary care physician: Megan Infante MD Admitting clinician: Florencio Soni MD Attending physician on discharge: Ron Soni Discharging clinician: Erin Pete Anticipated date of transfer: 08/31/24 Receiving physician/facility: Dr. Umanzor at [facility] DS: Admitting Diagnosis Discharge Date 08/31/24 Admitting Diagnosis Fall right rib fracture congestive heart failure status post mechanical aortic valve replacement warfarin induced coagulopathy diabetes mellitus acute kidney injury superimposed on chronic kidney disease COPD DS: Discharge Diagnosis Discharge Diagnosis (1) Cardiorenal syndrome: Code(s): I13.10 - Hypertensive heart and chronic kidney disease without heart failure, with stage 1 through stage 4 chronic kidney disease, or unspecified chronic kidney disease Status: Acute (2) Congestive heart failure: Code(s): I50.9 - Heart failure, unspecified Status: Chronic (3) Acute kidney injury superimposed on CKD: Code(s): N17.9 - Acute kidney failure, unspecified; N18.9 - Chronic kidney disease, unspecified Status: Acute (4) Thrombocytopenia: Code(s): D69.6 - Thrombocytopenia, unspecified Status: Acute (5) Hyperkalemia: Code(s): E87.5 - Hyperkalemia Status: Acute (6) Anasarca: Code(s): R60.1 - Generalized edema Status: Acute (7) Warfarin-induced coagulopathy: Code(s): D68.32 - Hemorrhagic disorder due to extrinsic circulating anticoagulants; T45.515A - Adverse effect of anticoagulants, initial encounter Status: Acute (8) Fall: Onset Date: 02/01/22 Code(s): W19.XXXA - Unspecified fall, initial encounter Status: Acute (9) Right rib fracture: Code(s): S22.31XA - Fracture of one rib, right side, initial encounter for closed fracture Status: Acute (10) Status post mechanical aortic valve replacement: Onset Date: ~2013 Code(s): Z95.2 - Presence of prosthetic heart valve Status: Acute (11) Diabetes mellitus: Code(s): E11.9 - Type 2 diabetes mellitus without complications Status: Acute (12) COPD (chronic obstructive pulmonary disease): Code(s): J44.9 - Chronic obstructive pulmonary disease, unspecified Status: Acute (13) Altered mental status: Code(s): R41.82 - Altered mental status, unspecified Status: Acute Transfer Discharge Sum: Med Medications Active and Home Medications: Home Medications albuterol sulfate 90 mcg/actuation aerosol inhaler (Ventolin HFA) 2 puff inhalation Q4H PRN Shortness Of Breath 07/03/20 [History Confirmed 08/28/24] allopurinol 300 mg tablet 300 mg PO DAILY 07/03/20 [History Confirmed 08/28/24] atorvastatin 80 mg tablet 80 mg PO HS 07/03/20 [History Confirmed 08/28/24] furosemide 40 mg tablet 80 mg PO DAILY 07/03/20 [History Confirmed 08/28/24] glipizide 5 mg tablet, extended release 24 hr 5 mg PO DAILY 07/03/20 [History Confirmed 08/28/24] pantoprazole 40 mg tablet,delayed release 40 mg PO DAILY 07/03/20 [History Confirmed 08/28/24] sertraline 50 mg tablet 50 mg PO DAILY 07/03/20 [History Confirmed 08/28/24] docusate sodium 100 mg capsule 100 mg PO DAILY PRN Constipation 02/01/22 [History Confirmed 08/28/24] empagliflozin 25 mg tablet (Jardiance) 25 mg PO DAILY 02/09/23 [History Confirmed 08/28/24] fluticasone fur. 100 mcg-umeclid 62.5 mcg-vilant 25 mcg inhalat.powder (Trelegy Ellipta) 1 inh inhalation DAILY 02/09/23 [History Confirmed 08/28/24] hydrocodone 7.5 mg-acetaminophen 325 mg tablet 1 tablet PO Q8H PRN Pain, Moderate 02/09/23 [History Confirmed 08/28/24] hydroxyzine HCl 50 mg tablet 50 mg PO TID PRN itch 02/09/23 [History Confirmed 08/28/24] trazodone 100 mg tablet 300 mg PO HS insomnia 02/09/23 [History Confirmed 0 08/28/24] carvedilol 6.25 mg tablet 3.125 mg PO Q12H 08/28/24 [History Confirmed 08/28/24] folic acid 1 mg tablet 1 mg PO DAILY 08/28/24 [History Confirmed 08/28/24] nystatin 100,000 unit/gram topical powder (Nystop) 1 applic topical BID 08/28/24 [History Confirmed 08/28/24] pregabalin 150 mg capsule (Lyrica) 150 mg PO BID 08/28/24 [History Confirmed 08/28/24] sacubitril 24 mg-valsartan 26 mg tablet (Entresto) 1 tablet PO BID 08/28/24 [History Confirmed 08/28/24] semaglutide 1 mg/dose (4 mg/3 mL) subcutaneous pen injector (Ozempic) 1 mg subcut WEEKLY 08/28/24 [History Confirmed 08/28/24] semaglutide 1 mg/dose (4 mg/3 mL) subcutaneous pen injector (Ozempic) 1 mg subcut WEEKLY 08/28/24 [History Confirmed 08/28/24] warfarin 1 mg tablet 2 mg PO DAILY 08/28/24 [History Confirmed 08/28/24] Active Medications Acetaminophen (Acetaminophen 325 Mg Tablet) 650 mg PO Q4H PRN PRN Reason: Mild Pain (1-3) or Fever Albuterol (Albuterol Sulfate (*Sp) Inhaler) 2 puff INHALATION Q4HRT PRN PRN Reason: Shortness Of Breath Last Admin: 08/30/24 07:20 Dose: 2 puff Albuterol/Ipratropium (Ipratropium 0.5 Mg/Albuterol Sulfate 2.5 Mg Ampul.Neb 3 Ml) 3 ml INHALATION Q6HRT [facility] Last Admin: 08/31/24 00:22 Dose: 3 ml Allopurinol (Allopurinol 300 Mg Tablet) 300 mg PO DAILY [facility] Atorvastatin Calcium (Atorvastatin 40 Mg Tablet) 80 mg PO HS [facility] Last Admin: 08/30/24 20:43 Dose: 80 mg Benzonatate (Benzonatate 100 Mg Capsule) 200 mg PO TID [facility] Carvedilol (Carvedilol 3.125 Mg Tablet) 3.125 mg PO Q12HR [facility] Last Admin: 08/30/24 20:46 Dose: Not Given Clotrimazole (Betamethasone/Clotrimazole Cream 15 Gm Tube) 1 applic TOPICAL Q12HR [facility] Last Admin: 08/30/24 20:44 Dose: 1 applic Dextrose (Dextrose 50% 25 Gm/50 Ml Syringe) 12.5 gm IV PUSH PRN PRN; Protocol PRN Reason: Hypoglycemia Docusate Sodium (Docusate Sodium 100 Mg Capsule) 100 mg PO DAILY PRN PRN Reason: Constipation Empagliflozin (Empagliflozin 25 Mg Tablet) 25 mg PO DAILY [facility] Fluticasone/Umeclidinium/Vilanterol (Fluticasone/Umeclidin/Vilanter 100-62.5-25 Mcg Ellipta) [facility] Last Admin: 08/30/24 09:34 Dose: 1 puff Folic Acid (Folic Acid 1 Mg Tablet) 1 mg PO DAILY [facility] Last Admin: 08/30/24 09:27 Dose: 1 mg Furosemide (Furosemide 40 Mg Tablet) 80 mg PO DAILY [facility] Glucagon (Glucagon For Inj 1 Mg Vial) 1 mg IM PRN PRN; Protocol PRN Reason: Hypoglycemia Glucose (Glucose Oral Gel 15 Gm Of Glucse In 37.5 Gm Tube) 15 gm PO PRN PRN; Protocol PRN Reason: Hypoglycemia Hydroxyzine HCl (Hydroxyzine Hcl 25 Mg Tablet) 50 mg PO TID PRN PRN Reason: itch Last Admin: 08/29/24 21:18 Dose: 50 mg Dextrose (Dextrose 5% 1,000 Ml) 1,000 mls @ 100 mls/hr IVPB PRN PRN; Protocol PRN Reason: Hypoglycemia Insulin Glargine (Insulin Glargine (*Bkc) 1,000 Units/10 Ml Vial) 16 units 0.15 units/kg (16 units) SUB-Q HS [facility] Last Admin: 08/30/24 20:58 Dose: Not Given Insulin Human Lispro (Insulin Human Lispro (*Bkc) 1,000 Units/10 Ml Vial) 4 - 8 units SUB-Q TIDWM [facility]; Protocol Last Admin: 08/30/24 16:43 Dose: Not Given Naloxone HCl (Naloxone Hcl 0.4 Mg/Ml Vial) 0.1 mg IV PUSH Q2M PRN PRN Reason: Opiate Reversal Ondansetron HCl (Ondansetron Inj 4 Mg/2 Ml Vial) 4 mg IV PUSH Q6H PRN PRN Reason: Nausea And Vomiting Pantoprazole Sodium (Pantoprazole 40 Mg Tablet) 40 mg PO DAILY [facility] Last Admin: 08/30/24 09:27 Dose: 40 mg Perflutren Lipid Microsphere (Perflutren Lipid Microspheres 1.5 Ml Vial Diluted To 10 Ml Total Volume) 0 ml IV PUSH ONCE PRN; Protocol PRN Reason: adequate visualization Stop: 09/02/24 12:34 Pregabalin (Pregabalin (*Crx) 50 Mg Capsule) 150 mg PO BID [facility] Last Admin: 08/30/24 16:44 Dose: 150 mg Sacubitril/Valsartan (Sacubitril/Valsartan 24-26 Mg Tablet) 1 tab PO Q12HR [facility] Last Admin: 08/30/24 20:47 Dose: 1 tab Sertraline HCl (Sertraline Hcl 50 Mg Tablet) 50 mg PO DAILY [facility] Last Admin: 08/30/24 09:27 Dose: 50 mg Sodium Bicarbonate (Sodium Bicarbonate Tab 650 Mg Tablet) 650 mg PO BID [facility] Last Admin: 08/30/24 16:45 Dose: 650 mg Tolnaftate (Tolnaftate 1% Powder 45 Gm Btl) 1 applic TOPICAL Q12HR [facility] Last Admin: 08/30/24 20:44 Dose: 1 applic Tramadol HCl (Tramadol Hcl (*Crx) 50 Mg Tablet) 50 mg PO Q4H PRN PRN Reason: Pain Rated 4-6 Trazodone HCl (Trazodone Hcl 50 Mg Tablet) 300 mg PO HS [facility] Last Admin: 08/30/24 20:49 Dose: Not Given Warfarin Sodium (Warfarin (*Pbkc) 2 Mg Tablet) 2 mg PO DAILY@1700 [facility] Last Admin: 08/30/24 16:45 Dose: 2 mg Transfer Discharge Sum: Hosp Hospital Course Hospital course: Mendez Lay is a 69 year old male with significant past medical history of COPD requiring 2 L nasal cannula baseline, hypertension, hyperlipidemia, diabetes, TIA, AFib, SHEELA, congestive heart failure With reduced EF, BPH,pul monary hypertension, CVA, peripheral artery disease, depression, diabetic neuropathy, gout, coronary artery disease who presented to the hospital on 08/28/2024 evaluation of shortness of breath / dyspnea. Patient sustained a fall about 2 weeks ago landing on his right chest and sustained rib fractures and was complaining of chest tenderness and SOB. He presented for further evaluation. Workup in the ED included a CT of the head which showed chronic encephalomalacia involving the left temporal lobe and left insula, old infarct in the right cerebellum, stable moderate nonspecific cerebral white matter disease likely representing chronic small-vessel ischemic disease. Cervical spine CT shown no acute osseous abnormalities. Right knee x-ray shows total knee arthroplasty with no acute osseous abnormality. CT of the chest abdomen and pelvis showed acute fractures of right 7th and 8th ribs, mildly enlarged bilateral external iliac lymph nodes likely reactive. EKG shown AFib with left bundle branch block with a rate of 82, QTC 467. Initial labs showed a normal white blood cell count of 8.4, RBC 3.96, hemoglobin 11.1, platelet count 106, INR 5.4, sodium 134, creatinine 2.02, EGFR 33, blood sugar ranging 171-201, alk-phos 143, proBNP 2119, lipase 85. UA was obtained and showed 3+ urine glucose, otherwise negative. Respiratory panel was negative for influenza a and B, RSV, COVID. 08/30/24: Patient having altered mental status today with increase O2 requirement of 4 L nasal cannula. His baseline O2 requirement is 2L. He is alert to voice and oriented x3 however very sleepy during my assessment. He states he did not sleep well however was given [place] this a.m. for pain. He was given a dose of Narcan in which he woke up fully. On assessment he had crackles to bilateral lower lobes, SOB at rest, Chest x-ray today showed cardiomegaly with interstitial edema, and anasarca. His labs revealed a hemoglobin of 9.7, platelet count 81, INR 2.7, sodium 134, potassium 5.8, BUN 61,creatinine 2.54, creatinine clearance 29, EGFR 25, blood sugars ranging 153-220, hemoglobin A1c 7.0, magnesium 2.4, liver enzymes were normal, alkaline phosphate 149, proBNP 7121, ammonia level was 19. A UA was obtained which only showed 2+ urine glucose otherwise negative. Urine random total protein 17.2, protein/creatinine ratio 0.15, magnesium was 2.4. When reviewing his record it look like his baseline creatinine was between 2.0 in 2.6 this past year. from our medical records he has had a weight gain of Approximately 16 lb.. Considering his creatinine appeared to be at baseline we went ahead and gave 40 mg IV push Lasix. he only diuresed about 350 ML. we repeated with a 1 time dose of Bumex 1 mg IV push however this dropped his blood pressure to 83/57 with minimal kidney response. His potassium was 5.8 and we did give a dose of Lokelma 10 mg x1. His repeat potassium after the Lokelma was 5.9. At that time we went ahead and gave him an amp of D50 %, 10 units of regular insulin IV, bicarb and Kayexalate. His potassium went down to 5.0 on next lab which was at midnight on 08/31/2024. He was placed on telemetry for closer monitoring. 08/31/24 I was called by nursing around 1:00 a.m. that patient's breathing appeared worse with use of accessory muscles. They stated his blood pressure started to improve on its own to 112/73. they also stated he had some hematuria after placement of a Dubon catheter. Patient does have known BPH and is currently on Coumadin. they also stated that he was hard to wake up and his blood sugar was 67. They went ahead and gave him some apple juice and repeat glucose was 92. I had nursing go ahead and draw a CBC which shown hemoglobin of 9.7. I came in and assessed the patient and his urine looked more ayaka with red sediment. he is currently on 2.5 L nasal cannula and easy to arouse. He is alert and oriented x4, vital signs are stable. I went ahead and got his morning labs which shown his hemoglobin at 10.2, platelet count 81, INR was 1.8, potassium was back up to 5.3, BUN 79, creatinine 3.10, EGFR 20, blood glucose ranging 101- 112, total bili 1.3, alk-phos 122, proBNP 60510, albumin 2.8. ABG showed a pH of 7.33, pCO2 of 44.5, PO2 of 95.1, bicarb 23.0, base excess -2.9 on 2.5 L nasal cannula, oxyhemoglobin 94.8. I also repeated a chest x-ray which did not show any improvement from the previous chest x-ray. 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 Spoke with transfer center at 5:24 a.m.. Received a phone call back at 5:50 a.m. and patient was accepted by Dr. Umanzor. He was go to cardiac tele floor there with potential nephrology consult. Patient could benefit from an up to date echocardiogram if he has not had 1 recently. he is stable for transfer to [facility] in [place] final diagnosis: acute on chronic CHF with reduced ejection fraction, acute kidney injury superimposed on chronic kidney disease, cardiorenal syndrome, hyperkalemia, thrombocytopenia, warfarin induced coagulopathy, anasarca, right rib fractures 7th and 8th condition: stable Time Spent with Patient Time attestation: Total time spent providing and/or coordinating transfer services: Exam Narrative: General: well nourished Cardiac: Normal S1 and S2. Irregular rhythm, rate controlled, Atrial fibrillation. No murmur, gallops or friction rubs, peripheral pulses intact. Respiratory: Bibasilar crackles, currently on 2.5L NC. No adventitious lung sounds, use of accessory muscles, non productive cough Gastrointestinal: soft, non-distended, non-tender, hypoactive bowel sounds. Last BM 08/30/24 : dubon catheter in place draining ayaka urine with red sediment Extremities: moves all extremities well, BLE pitting edema, Anasarca present Skin:Right knee abrasion with scab, RLE abrasion with dressing in place, right knee ecchymosis. Neuro: Alert to voice and oriented x3, interactive DS: Data Data Completed and Pending Completed studies during hospitalization: Head CT Cervical spine CT knee x-ray chest/abdomen/pelvis CT Chest x-ray x2 Pending studies at discharge: None Labs on day of discharge: Labs from last 24 hours 08/31/24 08/31/24 08/31/24 04:40 04:29 01:57 WBC 10.4 10.6 RBC 3.58 L 3.42 L Hgb 10.2 L 9.7 L Hct 32.8 L 31.3 L MCV 91.6 91.5 MCH 28.5 28.4 MCHC 31.1 L 31.0 L RDW 16.0 H 16.1 H Plt Count 81 L 81 L MPV 12.9 H 12.0 H Immature Gran % (Auto) 0.5 H 0.4 H Neut % (Auto) 78.2 H 79.4 H Lymph % (Auto) 8.5 L 6.9 L [place] % (Auto) 11.9 H 12.3 H Eos % (Auto) 0.7 L 0.7 L Baso % (Auto) 0.2 0.3 Lymph # (Auto) 0.88 L 0.73 L [place] # (Auto) 1.24 H 1.30 H Eos # (Auto) 0.07 0.07 Baso # (Auto) 0.02 0.03 Abs Immat Gran (auto) 0.05 H 0.04 H Absolute Neuts (auto) 8.15 H 8.42 H Absolute Nucleated RBC 0.00 0.00 Nucleated RBC % 0.0 0.0 % Immature Plt Fraction 6.7 6.4 PT 18.8 H INR 1.8 Puncture Site Left radial ABG pH 7.33 L ABG pCO2 44.5 ABG pO2 95.1 H ABG PO2/FiO2 Ratio Not Reportable ABG HCO3 23.0 ABG O2 Saturation 96.1 ABG O2 Content 14.4 L ABG Base Excess -2.9 L A-a Gradient Not Reportable Oxyhemoglobin 94.8 Total Hemoglobin Pending O2 Delivery Device Nasal cannula O2 Liters/Min 2.5 Sodium 138 Potassium 5.3 H Chloride 104 Carbon Dioxide 27 Anion Gap 7 BUN 79 H Creatinine 3.10 H Estim Creat Clear Calc 24 Estimated GFR 20 L Glucose 101 H POC Capillary Glucose 112 H Hemoglobin A1c Calculated Osmolality 309 H Calcium 8.6 Magnesium Total Bilirubin 1.3 H AST 19 ALT 23 Alkaline Phosphatase 122 H Ammonia NT-Pro-B Natriuret Pep 30275 H Total Protein 6.9 Albumin 2.8 L Urine Color Urine Appearance Urine pH Ur Specific [place] Urine Protein Urine Glucose (UA) Urine Ketones Ur Blood (Man) Urine Nitrate Urine Bilirubin Urine Urobilinogen Leukocyte Esterase Rfl U Random Total Protein Urine Creatinine Protein/Creat Ratio 2 08/31/24 08/31/24 08/30/24 01:08 00:00 21:49 WBC RBC Hgb Hct MCV MCH MCHC RDW Plt Count MPV Immature Gran % (Auto) Neut % (Auto) Lymph % (Auto) [place] % (Auto) Eos % (Auto) Baso % (Auto) Lymph # (Auto) [place] # (Auto) Eos # (Auto) Baso # (Auto) Abs Immat Gran (auto) Absolute Neuts (auto) Absolute Nucleated RBC Nucleated RBC % % Immature Plt Fraction PT INR Puncture Site ABG pH ABG pCO2 ABG pO2 ABG PO2/FiO2 Ratio ABG HCO3 ABG O2 Saturation ABG O2 Content ABG Base Excess A-a Gradient Oxyhemoglobin Total Hemoglobin O2 Delivery Device O2 Liters/Min Sodium 132 L Potassium 5.0 Chloride 101 Carbon Dioxide 27 Anion Gap 4 BUN 76 H Creatinine 3.00 H Estim Creat Clear Calc 24 Estimated GFR 21 L Glucose 67 L POC Capillary Glucose 92 113 H Hemoglobin A1c Calculated Osmolality 294 Calcium 8.7 Magnesium Total Bilirubin 1.2 H AST 19 ALT 22 Alkaline Phosphatase 133 H Ammonia NT-Pro-B Natriuret Pep Total Protein 6.8 Albumin 2.8 L Urine Color Urine Appearance Urine pH Ur Specific [place] Urine Protein Urine Glucose (UA) Urine Ketones Ur Blood (Man) Urine Nitrate Urine Bilirubin Urine Urobilinogen Leukocyte Esterase Rfl U Random Total Protein Urine Creatinine Protein/Creat Ratio 2 08/30/24 08/30/24 08/30/24 20:03 18:17 17:38 WBC RBC Hgb Hct MCV MCH MCHC RDW Plt Count MPV Immature Gran % (Auto) Neut % (Auto) Lymph % (Auto) [place] % (Auto) Eos % (Auto) Baso % (Auto) Lymph # (Auto) [place] # (Auto) Eos # (Auto) Baso # (Auto) Abs Immat Gran (auto) Absolute Neuts (auto) Absolute Nucleated RBC Nucleated RBC % % Immature Plt Fraction PT INR Puncture Site ABG pH ABG pCO2 ABG pO2 ABG PO2/FiO2 Ratio ABG HCO3 ABG O2 Saturation ABG O2 Content ABG Base Excess A-a Gradient Oxyhemoglobin Total Hemoglobin O2 Delivery Device O2 Liters/Min Sodium 135 L Potassium 5.9 H Chloride 103 Carbon Dioxide 24 Anion Gap 8 BUN 74 H Creatinine 2.79 H Estim Creat Clear Calc 26 Estimated GFR 23 L Glucose 177 H POC Capillary Glucose 215 H Hemoglobin A1c Calculated Osmolality 305 H Calcium 8.6 Magnesium Total Bilirubin 1.2 H AST 18 ALT 24 Alkaline Phosphatase 132 H Ammonia NT-Pro-B Natriuret Pep Total Protein 7.0 Albumin 2.9 L Urine Color Yellow Urine Appearance Clear Urine pH 5.5 Ur Specific [place] 1.015 Urine Protein Negative Urine Glucose (UA) 2+ H Urine Ketones Negative Ur Blood (Man) Negative Urine Nitrate Negative Urine Bilirubin Negative Urine Urobilinogen 0.2 Leukocyte Esterase Rfl Negative U Random Total Protein 17.2 H Urine Creatinine 111.99 Protein/Creat Ratio 2 0.15 08/30/24 08/30/24 08/30/24 16:41 15:39 15:36 WBC RBC Hgb Hct MCV MCH MCHC RDW Plt Count MPV Immature Gran % (Auto) Neut % (Auto) Lymph % (Auto) [place] % (Auto) Eos % (Auto) Baso % (Auto) Lymph # (Auto) [place] # (Auto) Eos # (Auto) Baso # (Auto) Abs Immat Gran (auto) Absolute Neuts (auto) Absolute Nucleated RBC Nucleated RBC % % Immature Plt Fraction PT INR Puncture Site ABG pH ABG pCO2 ABG pO2 ABG PO2/FiO2 Ratio ABG HCO3 ABG O2 Saturation ABG O2 Content ABG Base Excess A-a Gradient Oxyhemoglobin Total Hemoglobin O2 Delivery Device O2 Liters/Min Sodium Potassium Chloride Carbon Dioxide Anion Gap BUN Creatinine Estim Creat Clear Calc Estimated GFR Glucose POC Capillary Glucose 157 H Hemoglobin A1c Calculated Osmolality Calcium Magnesium 2.4 Total Bilirubin AST ALT Alkaline Phosphatase Ammonia NT-Pro-B Natriuret Pep 7121 H Total Protein Albumin Urine Color Urine Appearance Urine pH Ur Specific [place] Urine Protein Urine Glucose (UA) Urine Ketones Ur Blood (Man) Urine Nitrate Urine Bilirubin Urine Urobilinogen Leukocyte Esterase Rfl U Random Total Protein Urine Creatinine Protein/Creat Ratio 2 08/30/24 08/30/24 08/30/24 15:07 11:42 08:39 WBC RBC Hgb Hct MCV MCH MCHC RDW Plt Count MPV Immature Gran % (Auto) Neut % (Auto) Lymph % (Auto) [place] % (Auto) Eos % (Auto) Baso % (Auto) Lymph # (Auto) [place] # (Auto) Eos # (Auto) Baso # (Auto) Abs Immat Gran (auto) Absolute Neuts (auto) Absolute Nucleated RBC Nucleated RBC % % Immature Plt Fraction PT INR Puncture Site Right brachial ABG pH 7.30 L ABG pCO2 37.8 ABG pO2 118.6 H ABG PO2/FiO2 Ratio Not Reportable ABG HCO3 18.3 L ABG O2 Saturation 97.6 H ABG O2 Content 16.5 ABG Base Excess -7.4 L A-a Gradient Not Reportable Oxyhemoglobin 95.7 Total Hemoglobin Pending O2 Delivery Device Nasal cannula O2 Liters/Min 4.0 Sodium Potassium Chloride Carbon Dioxide Anion Gap BUN Creatinine Estim Creat Clear Calc Estimated GFR Glucose POC Capillary Glucose 220 H Hemoglobin A1c 7.0 H Calculated Osmolality Calcium Magnesium Total Bilirubin AST ALT Alkaline Phosphatase Ammonia 19 NT-Pro-B Natriuret Pep Total Protein Albumin Urine Color Urine Appearance Urine pH Ur Specific [place] Urine Protein Urine Glucose (UA) Urine Ketones Ur Blood (Man) Urine Nitrate Urine Bilirubin Urine Urobilinogen Leukocyte Esterase Rfl U Random Total Protein Urine Creatinine Protein/Creat Ratio 2 08/30/24 08:11 WBC RBC Hgb Hct MCV MCH MCHC RDW Plt Count MPV Immature Gran % (Auto) Neut % (Auto) Lymph % (Auto) [place] % (Auto) Eos % (Auto) Baso % (Auto) Lymph # (Auto) [place] # (Auto) Eos # (Auto) Baso # (Auto) Abs Immat Gran (auto) Absolute Neuts (auto) Absolute Nucleated RBC Nucleated RBC % % Immature Plt Fraction PT INR Puncture Site ABG pH ABG pCO2 ABG pO2 ABG PO2/FiO2 Ratio ABG HCO3 ABG O2 Saturation ABG O2 Content ABG Base Excess A-a Gradient Oxyhemoglobin Total Hemoglobin O2 Delivery Device O2 Liters/Min Sodium Potassium Chloride Carbon Dioxide Anion Gap BUN Creatinine Estim Creat Clear Calc Estimated GFR Glucose POC Capillary Glucose 209 H Hemoglobin A1c Calculated Osmolality Calcium Magnesium Total Bilirubin AST ALT Alkaline Phosphatase Ammonia NT-Pro-B Natriuret Pep Total Protein Albumin Urine Color Urine Appearance Urine pH Ur Specific [place] Urine Protein Urine Glucose (UA) Urine Ketones Ur Blood (Man) Urine Nitrate Urine Bilirubin Urine Urobilinogen Leukocyte Esterase Rfl U Random Total Protein Urine Creatinine Protein/Creat Ratio 2 Procedures/Treatments: None Imaging Radiologist's impression: XR chest 1V portable 08/30/2024 08:07 Indication: Shortness of breath Procedure: AP portable chest Comparison: Comparison to multiple prior studies sequentially, with oldest reviewed study dated 12/17/2022. Findings: Cardiomegaly. Status post median sternotomy for CABG. Mild interstitial edema. No significant effusion. No pneumothorax. No acute osseous abnormality. Impression: 1: Cardiomegaly with interstitial edema. Reviewed, dictated and finalized at location B. 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 TECHNIQUE: Computed tomography (CT) of the chest, abdomen, and pelvis was performed with 100 mL Omnipaque 350 intravenous contrast. Automated exposure control and iterative reconstruction technique were employed. The dose-length product was 1712.04 mGy-cm. COMPARISON: CT chest 02/01/2024, CT abdomen and pelvis 12/21/2023, chest CT 05/13/2016 FINDINGS: CHEST CT: The lungs demonstrate mild atelectasis. Calcified left lung nodules are consistent with old granulomatous disease. No pleural effusion. Cardiomegaly is noted. There are changes of aortic valve replacement. There are coronary artery calcifications. There is mild bilateral gynecomastia. There are bridging endplate osteophytes at multiple levels in the spine, consistent with diffuse idiopathic skeletal hyperostosis (DISH). There are changes of anterior fusion procedure in cervical spine. There are old healed bilateral rib fractures. There are acute fractures of right seventh and eighth ribs. ABDOMEN/PELVIS CT: The liver and spleen are normal. There are gallstones in the gallbladder, which is normal in size. The pancreas and left adrenal gland are normal. There is a 4.7 cm mass in right adrenal gland, stable from 05/13/2016, likely an adenoma. There are cysts in the kidneys measuring up to 5.7 cm on the left. There is an umbilical hernia containing fat. The prostate is moderately enlarged. There are no dilated loops of bowel. The appendix is not visualized. There are no pathologically enlarged lymph nodes. There are mildly enlarged bilateral external iliac nodes. There is a total left hip arthroplasty. There is severe lumbar spondylosis. IMPRESSION: 1. Acute fractures of right seventh and eighth ribs. 2. Mildly enlarged bilateral external iliac lymph nodes, likely reactive. Reviewed, dictated and finalized at location A. STOS CEMENT SHEET SUPERVISOR XR knee RT 3V Ordering provider: Pedro Bravo MD History: . FALL X10 DAYS AGO,RT KNEE PAIN . Comparison: None. FINDINGS: BONES: No acute fracture or dislocation. JOINT SPACES: Total knee arthroplasty. SOFT TISSUES: Normal. IMPRESSION: No acute osseous abnormality right knee. Total knee arthroplasty. Reviewed, dictated and finalized at location A. STOS CEMENT SHEET SUPERVISOR CT cervical spine wo con Ordering provider: Pedro Bravo MD History: . fall X10 DAYS AGO,TOP OF HEAD INJURY,NO NECK PAIN OR LOC . Comparison: None. Technique: CT of the cervical spine was performed without contrast. Sagittal and coronal reformatted images were also obtained and reviewed. Automated exposure control and iterative reconstruction technique were employed. The dose- length product was 1256.90 mGy-cm. FINDINGS: VERTEBRAE: No subluxation or acute fracture. The occipital condyles are intact. Postoperative changes at the level of C4-C5. DISC SPACES: Narrowing of the disc C2-C3, C5-C6, C6-C7 and 6 7 T1. Disc spacer at the level of C4-C5. Osteophyte formation is seen at the level of C3-C4. Narrowing of the foramina C2-C3, C3-C4, C4-C5 and C5-C6. PARASPINOUS SOFT TISSUES: Bilateral carotid calcifications. IMPRESSION: No acute osseous abnormality cervical spine. Reviewed, dictated and finalized at location A. STOS CEMENT SHEET SUPERVISOR LEXAMINATION: CT brain wo con DATE: 08/28/2024 13:08 INDICATION: Head injury. TECHNIQUE: Computed tomography (CT) of the head was performed without intravenous contrast. The mA was adjusted according to patient size. Iterative reconstruction technique was employed. The dose-length product was 605.33 mGy- cm. COMPARISON: Head CT 12/21/2023 FINDINGS: There are scattered areas of low attenuation in the cerebral white matter. There is chronic encephalomalacia involving the left temporal lobe and left insula. There is a small old infarct in right cerebellum. There is no intracranial hemorrhage, acute infarction, or abnormal intracranial mass lesion. The ventricles are normal in size. There are likely changes of left ocular lens replacement surgery. There is mild mucosal thickening in the paranasal sinuses. The mastoid air cells are normal. There is cerumen in the external auditory canals bilaterally. IMPRESSION: 1. Chronic encephalomalacia involving the left temporal lobe and left insula. 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 2. Stable moderate nonspecific cerebral white matter disease, which likely represents chronic small vessel ischemic disease. Reviewed, dictated and finalized at location A. STOS CEMENT SHEET SUPERVISOR
--- NOTE | 2024-08-31 05:54 | PC.NURSE ---
Informed pt of transfer request. Pt agrees to transfer to his specialists at [facility]. Pt called his daughter Bonnie and placed on speaker phone to discuss need for transfer. Pts daughter agreeable to transfer to [facility] and she stated she will be in to see pt soon. Per MANAGER FLOOR pt has been accepted at [facility] and will await call back from [facility] for bed assignment. Contionuing to monitor.
--- NOTE | 2024-08-31 06:30 | PC.NURSE ---
Cara from [facility] transfer unit called with bed assignment and room number. Pt will be going to [address] and the accepting doctor is Dr. BLACKMAN.
--- NOTE | 2024-08-31 06:33 | PC.NURSE ---
David SHETTY notified of need to transfer patient to [facility] in [place], [place]. Request made for an ALS unit to be sent out.
--- NOTE | 2024-08-31 06:37 | PC.NURSE ---
Pts daughter signed transfer form to [facility]. [facility] called back and stated they will be here around 0730 to take pt to [facility] due to change of shift. Pts daughter at bedside and wanting to speak to ALUMINUM SHEET CUTTER, FLOR Khan informed to speak w/ daughter before pt is transferred.
--- NOTE | 2024-08-31 06:38 | PC.NURSE ---
[facility] called back and said they could have a rig out at 0730 this AM for transfer.
--- NOTE | 2024-08-31 08:02 | PC.NURSE ---
0708 patient care turned over to [facility] after report given. afib on tele with rates 0f 80's. resp 26 and abd breathing. lungs coarse. swollen all over from head to toes alert and orient. daughter at her side. dubon cath had red tinged urine in tubing and bag.
--- OUTSIDE RECORDS SUMMARY | 2024-09-03 19:06 | XMS_ITS | Encounter Summary ---
Author Organization [facility] Address [facility] [place] [address] [place] [address] Care Team Providers Care Door Machine Operator Name Role Phone Megan Infante MD Primary Care Provider [phone] Zaki Ortiz MD Unavailable [phone] Concetta Acevedo MD Unavailable + [phone] Jeff Grace MD Unavailable Brit Gonzáles MD Unavailable Encounter Details Date Type Department Care Team (Late st Contact Info) Description 08/08/2024 1:52 PM SENIOR APPLICATION SECURITY CONSULTANT - 08/08/2024 11:59 PM [facility] Encounter [facility] [address] [place] [address] Zayra Powell, DOG LICENSER [address] [place] [id number] Discharge Disposition: Home or Self Care (Routine Discharge) Social History Tobacco Use Types Packs/Day Years Used Date Smoking Tobacco: Former Passive Smoke Exposure: Past Smokeless Tobacco: Former Chew Alcohol Use Standard Drinks/Week Comments Yes 0 (1 standard drink = 0.6 oz pur e alcohol) 4 beers per week [facility] Utilities Answer Date Recorded In the past 12 months has th e electric, gas, oil, or water company threatened to shut off services in your home? No 07/31/2024 Humiliation, Afraid, Rape, and Kick questionnair e Answer Date Recorded Within the last year, have y ou been afraid of your partner or ex-partner? No 07/31/2024 Within the last year, have y ou been humiliated or emotionally abused in other ways by your partner or ex-partner? No Within the last year, have y ou been kicked, hit, slapped, or otherwise physically hurt by your partner or ex-partner? No 07/31/2024 Within the last year, have y ou been raped or forced to have any kind of sexual activity by your partner or ex-partner? No 07/31/2024 Social Connection and Isolation Panel [NHANES] A nswer Date Recorded In a typical week, how many times do you talk on the phone with family, friends, or neighbors? Patient declined 02/16/2023 How often do you get togethe r with friends or relatives? Patient declined 02/16/2023 How often do you attend baptist or baptism serv ices? Patient declined 02/16/2023 Do you belong to any clubs o r organizations such as baptist groups, unions, fraternal or athletic groups, or school groups? Patient declined 02/16/2023 How often do you attend meet ings of the clubs or organizations you belong to? Patient declined 02/16/2023 Are you , , di vorced, , never , or living with a partner? Patient declined 02/16/2023 AUDIT-C Answer Date Recorded Q1: How often do you have a drink containing alc ohol? Patient declined 02/16/2023 Q2: How many drinks containi ng alcohol do you have on a typical day when you are drinking? Patient declined 02/16/2023 Q3: How often do you have si x or more drinks on one occasion? Patient declined 02/16/2023 Overall Financial Resource Strain (CARDIA) Answe r Date Recorded How hard is it for you to pa y for the very basics like food, housing, medical care, and heating? Not hard at all 07/31/2024 PHQ-2 Answer Date Recorded PHQ-2 Score - If the patient scores above 3, please move on to questions 3-9 0 12/01/2021 [facility] - Occupational Stress Questionnaire Answer Date Recorded Do you feel stress - tense, restless, nervous, or anxious, or unable to sleep at night because your mind is troubled all the time - these days? Patient declined 02/16/2023 Hunger Vital Sign Answer Date Recorded Within the past 12 months, y ou worried that your food would run out before you got the money to buy more. Never true 07/31/20 24 Within the past 12 months, t he food you bought just didn't last and you didn't have money to get more. Never true 07/31/2024 PRAPARE - Transportation Answer Date Re corded In the past 12 months, has l ack of transportation kept you from medical appointments or from getting medications? No 04/2024 In the past 12 months, has l ack of transportation kept you from meetings, work, or from getting things needed for daily living? No 07/31/2024 Housing Stability Vital Sign Answer Stevenson e Recorded In the last 12 months, was t here a time when you were not able to pay the mortgage or rent on time? Patient declined 07/12/20 23 In the last 12 months, how many places have you lived? 1 07/12/2023 In the last 12 months, was t here a time when you did not have a steady place to sleep or slept in a intermediate (including now)? Patient declined 07/12/2023 Housing Stability Vital Sign Answer Stevenson e Recorded In the last 12 months, was t here a time when you were not able to pay the mortgage or rent on time? No 07/31/2024 In the past 12 months, how m any times have you moved where you were living? 0 07/31/2024 At any time in the past 12 m [facility], were you homeless or living in a intermediate (including now)? No 07/31/2024 Sex and Gender Information Value Date Recorded Sex Assigned at Not on file Legal Sex Male 10:01 PM CDT Gender Identity Not on file Sexual Orientation Not on file Occupation Industry Job Start Date Job End Date Not on file Not on file Not on file Not on file documented as of this encounter Functional Status * Are you deaf or do you have serious difficulty hearing Answer Date of Assessment Author Status No 07/31/2024 5:50 PM Abril Prather RN Active * Are you blind or do you have serious difficulty seeing, even when wearing glasses? Answer Date of Assessment Author Status No 07/31/2024 5:50 PM Abril Prather RN Active * Do you have serious difficulty walking or climbing stairs? Answer Date of Assessment Author Status Yes 07/31/2024 5:50 PM Abril Prather RN Active * Do you have difficulty dressing or bathing? Answer Date of Assessment Author Status Yes 07/31/2024 5:50 PM Abril Prather RN Active * Because of a physical, mental, or emotional condition, do you have difficulty doing errands alone such as visiting a doctor's office or shopping? Answer Date of Assessment Author Status No 07/31/2024 5:50 PM Abril Prather RN Active documented as of this encounter Mental Status * Because of a physical, mental, or emotional condition, do you have serious difficulty concentrating, remembering, or making decisions? Answer Entry Date Author Status Yes 07/31/2024 5:50 PM Abril Prather RN Active documented in this encounter Medications at Time of Discharge albuterol sulfate HFA 108 (90 Base) MCG/ACT inhaler Inhale 2 puffs into the lungs every 4 (four) hours as needed. 11/14/2015 allopurinol 300 MG tablet Take 1 tablet (300 mg total) by mouth daily. 02/17/2019 atorvastatin 80 MG tablet Take 1 tablet (80 mg total) by mouth nightly at bedtime. 12/31/2016 carvedilol (COREG) 3.125 MG tablet Take 1 tablet (3.125 mg total) by mouth 2 (two) times daily. 10/09/2022 clotrimazole-bet amethasone (LOTRISONE) cream 1 Application every 12 (twelve) hours. 07/06/2024 docusate sodium 100 MG capsule Take 1 capsule (100 mg total) by mouth as needed for Constipation. folic acid (FOLVITE) 1 MG tablet Take 1 tablet (1 mg total) by mouth daily. furosemide (LASIX) 80 MG tablet Take 1 tablet (80 mg total) by mouth daily. 30 tablet 07/17/2023 glipiZIDE XL (GLUCOTROL XL) 5 MG 24 hr tablet Take 1 tablet (5 mg total) by mouth daily with breakfast. 30 tablet 02/09/2023 HYDROcodone-acet aminophen (NORCO) 10-325 MG tabletIndication s:Acute Pain < 7 Day Supply Take 1 tablet by mouth every 6 (six) hours as needed. Indications: Acute Pain < 7 Day Supply 15 tablet 07/16/2023 hydrOXYzine (ATARAX) 50 MG tablet Take 1 tablet (50 mg total) by mouth 3 (three) times daily. As needed 10/09/2022 JARDIANCE 25 MG tablet Take 1 tablet (25 mg total) by mouth daily. 10/31/2022 nystatin (MYCOSTATIN) powder Apply topically 2 (two) times daily. Apply to groin, under abdominal fold 15 g 08/03/2024 pantoprazole EC 40 MG tablet Take 1 tablet (40 mg total) by mouth daily. pregabalin (LYRICA) 150 MG capsule Take 1 capsule (150 mg total) by mouth 2 (two) times daily. sacubitril-valsa rtan (ENTRESTO) 24-26 MG tabletIndication s:Chronic combined systolic and diastolic congestive heart failure (CMS/HCC HHS/HCC) Take 1 tablet by mouth 2 (two) times daily. 60 tablet 11 01/31/2024 Semaglutide (OZEMPIC, 1 MG/DOSE, SC) Inject into the skin once a week. sertraline 50 MG tablet Take 1 tablet (50 mg total) by mouth daily. 10/03/2021 traZODone (DESYREL) 150 MG tablet Take 2 tablets (300 mg total) by mouth nightly at bedtime. 03/24/2022 TRELEGY ELLIPTA 100-62.5-25 MCG/ACT AEROSOL POWDER, BREATH ACTIVATED Inhale 1 puff into the lungs daily. 12/23/2022 warfarin (COUMADIN) 4 MG tablet Take 1 tablet (4 mg total) by mouth daily. Monitor INR every 3-4 days and follow up closely with PCP 30 tablet 08/03/2024 documented as of this encounter Progress Notes * LALIT Cheney - 08/08/2024 2:00 PM CSTEncounter addended by: LALIT Cheney on: 08/08/2024 3:02 PM Actions taken: Visit diagnoses modified, Order list changed, Diagnosis association updated OR APPLICATION SECURITY CONSULTANT * Mary Moore RN - 08/08/2024 2:00 PM CSTEncounter addended by: Mary Moore RN on: 08/08/2024 3:22 PM Actions taken: MAR administration accepted OR APPLICATION SECURITY CONSULTANT documented in this encounter Plan of Treatment Upcoming Encounters Date Type Department Care Team (Late st Contact Info) Description 09/25/2024 2:00 PM SENIOR APPLICATION SECURITY CONSULTANT Appointment [facility] [address] [facility] [place] [address] Zayra Powell FNP [address] [facility] [place] [address] 10/16/2024 3:30 PM SENIOR APPLICATION SECURITY CONSULTANT Office Visit [facility] [place] [id number] Brit Gonzáles MD [address] [place] [id number] documented as of this encounter Goals Goal Patient Goal Type Associated Problems Recent Progress Patient-Stated? 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)- Primary 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) documented in this encounter Administered Medications Inactive Administered Medications - up to 3 most recent administrations Medication Order MAR Action Action Date Dose Rate Site lidocaine 2 % URO-JET jelly Topical, Once, 1 dose, On Wed08/08/24 at 1530Indications: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),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) Given 08/08/2024 2:10 PM SENIOR APPLICATION SECURITY CONSULTANT documented in this encounter Additional Health Concerns Assessment Noted Time PHQ-9 Depression Total Score: 0 12/02/19 1:18 PM CDT documented as of this encounter Care Teams Door Machine Operator Relationship Specialty Start Date End Date Megan Infante MD [address] [place] [address] PCP - General FAMILY PRACTICE 04/06/16 Zaki Ortiz MD [address] [place] [address] Consulting Physician PULMONARY DISEASE 07/12/19 Romeo-Concetta Pond MD [facility] [address] [place] [address] [id number] Surgeon NEUROLOGICAL SURGERY 12/16/22 Jeff Grace MD [address] [place] [address] [phone] Consulting Physician INTERNAL MEDICINE 02/11/23 Brit Gonzáles MD [address] [place] [address] [phone] Consulting Physician CARDIOVASCULAR DISEASE 12/29/23 documented as of this encounter
--- OUTSIDE RECORDS SUMMARY | 2024-09-03 19:06 | XMS_ITS | Encounter Summary ---
Author Organization [facility] Address [facility] [place] [place] [address] [place] [address] Care Team Providers Care Nozzle Tender Name Role Phone Megan Infante MD Primary Care Provider [phone] Zaki Ortiz MD Unavailable [phone] Concetta Acevedo MD Unavailable + [phone] Jeff Grace MD Unavailable Brit Gonzáles MD Unavailable Encounter Details Date Type Department Care Team (Latest Contact Info) Description 08/14/2024 Travel Social History Tobacco Use Types Packs/Day Years Used Date Smoking Tobacco: Former Passive Smoke Exposure: Past Smokeless Tobacco: Former Chew Alcohol Use Standard Drinks/Week Comments Yes 0 (1 standard drink = 0.6 oz pur e alcohol) 4 beers per week [facility] Utilities Answer Date Recorded In the past 12 months has [facility] [employer], gas, oil, or water [employer] threatened to shut off services in your [...] declined 02/16/2023 How often do you attend pentecostal or anabaptism serv ices? Patient declined 02/16/2023 Do you belong to any clubs o r organizations such as pentecostal groups, unions, fraternal or athletic groups, or [...] move on to questions 3-9 0 12/01/2021 [facility] - Occupational Stress Questionnaire Answer Date Recorded [...] place to sleep or slept in a fdc (including now)? Patient declined 07/12/2023 Housing Stability [...] any time in the past 12 m [facility], were you homeless or living in a fdc (including now)? No 07/31/2024 Sex and Gender [...] Author Status Yes 07/31/2024 5:50 PM Abril Prather, RN Active * Do you have difficulty dressing or bathing? Answer Date of Assessment Author Status Yes 07/31/2024 5:50 PM Abril Prather RN Active * Because of a physical, mental, or emotional condition, do you have difficulty doing errands alone such as visiting a doctor's office or shopping? Answer Date of Assessment Author Status No 07/31/2024 5:50 PM REHABILITATION PSYCHOLOGIST Abril Contreras RN Active documented as of this encounter Mental Status * Because of a physical, mental, or emotional condition, do you have serious difficulty concentrating, remembering, or making decisions? Answer Entry Date Author Status Yes 07/31/2024 5:50 PM REHABILITATION PSYCHOLOGIST Abril Contreras RN Active documented in this encounter Plan of Treatment Upcoming Encounters Date Type Department Care Team (Late st Contact Info) Description 09/25/2024 2:00 PM REHABILITATION PSYCHOLOGIST Appointment [facility] [address] [place] [address] Zayra Powell, BEVERAGE SERVER [address] [place] [address] 10/16/2024 3:30 PM REHABILITATION PSYCHOLOGIST Office Visit [facility] [id number] [place] [address] Brit Gonzáles MD [address] [place] [address] documented as of this encounter Goals Goal Patient Goal Type Associated Problems Recent Progress Patient-Stated? Author Family - family caregiver with be involved in care transitions and discharge planning Lifestyle No Karen Quezada RN documented as of this encounter Visit Diagnoses Not on filedocumented in this encounter Additional Health Concerns Assessment Noted Time PHQ-9 Depression Total Score: 0 12/02/19 22 1:18 PM CDT documented as of this encounter Care Teams Nozzle Tender Relationship Specialty Start Date End Date [place] [address] PCP - General FAMILY PRACTICE 04/06/16 [place] [address] Consulting Physician PULMONARY DISEASE 07/12/19 Concetta Acevedo MD [address] [place] [id number] Surgeon NEUROLOGICAL SURGERY 12/16/22 Jeff Grace MD [address] [place], [place] [address] Consulting Physician INTERNAL MEDICINE 02/11/23 Brit Gonzáles MD [address] [place], [place] [phone] Consulting Physician CARDIOVASCULAR DISEASE 12/29/23 documented as of this encounter
--- OUTSIDE RECORDS SUMMARY | 2024-09-03 19:06 | XMS_ITS | Encounter Summary ---
Author Organization [facility] Address [facility] [place] [address] [place] [address] Care Team Providers Care Sustainable Design Coordinator Name Role Phone Megan Infante MD Primary Care Provider [phone] Zaki Ortiz MD Unavailable [phone] Concetta Acevedo MD Unavailable + [phone] Jeff Grace MD Unavailable Brit Gonzáles MD Unavailable Encounter Details Date Type Department Care Team (Late st Contact Info) Description 05/22/2024 1:50 PM CDT - 05/22/2024 11:59 PM CDT Hospital Encounter [facility] [address] [place] [address] Zayra Powell, [facility] [address] [place] [address] Discharge Disposition: Home or Self Care (Routine Discharge) Social History Tobacco Use Types Packs/Day Years Used Date Smoking Tobacco: Former Passive Smoke Exposure: Past Smokeless Tobacco: Former Chew Alcohol Use Standard Drinks/Week Comments Yes 0 (1 standard drink = 0.6 oz pur e alcohol) 4 beers per week [facility] Utilities Answer Date Recorded In the past 12 months has e electric, gas, oil, or water [employer] threatened to shut off services in your home? No 07/12/2023 Humiliation, Afraid, Rape, and Kick questionnair e Answer Date Recorded Within the last year, have y ou been afraid of your partner or ex-partner? No 07/12/2023 Within the last year, have y ou been humiliated or emotionally abused in other ways by your partner or ex-partner? No Within the last year, have y ou been kicked, hit, slapped, or otherwise physically hurt by your partner or ex-partner? No 07/12/2023 Within the last year, have y ou been raped or forced to have any kind of sexual activity by your partner or ex-partner? No 07/12/2023 Social Connection and Isolation Panel [NHANES] A nswer Date Recorded In a typical week, how many times do you talk on the phone with family, friends, or neighbors? Patient declined 02/16/2023 How often do you get togethe r with friends or relatives? Patient declined 02/16/2023 How often do you attend yazidism or taoism serv ices? Patient declined 02/16/2023 Do you belong to any clubs o r organizations such as yazidism groups, unions, fraternal or athletic groups, or [...] care, and heating? Not hard at all 07/12/2023 PHQ-2 Answer Date Recorded PHQ-2 Score - If the patient scores above 3, please move on to questions 3-9 0 12/01/2021 [facility] - Occupational Stress Questionnaire Answer [...] the money to buy more. Never true 07/12/20 Within the past 12 months, t he food you bought just didn't last and you didn't have money to get more. Never true 07/12/2023 PRAPARE - Transportation Answer Date Re corded In the past 12 months, has l ack of transportation kept you from medical appointments or from getting medications? No 06/24 In the past 12 months, has l ack of transportation kept you from meetings, work, or from getting things needed for daily living? No 07/12/2023 Housing Stability Vital Sign Answer [place] e Recorded In the last 12 months, was t here a time when you were not able to pay the mortgage or rent on time? Patient declined 07/12/20 In the last 12 months, how many places have you lived? 1 07/12/2023 In the last 12 months, was t here a time when you did not have a steady place to sleep or slept in a fci (including now)? Patient declined 07/12/2023 Sex and Gender Information Value Date Recorded [...] Answer Date of Assessment Author Status No 07/12/2023 6:58 PM Liliana Layne RN Active * Are you blind or do you have serious difficulty seeing, even when wearing glasses? Answer Date of Assessment Author Status No 07/12/2023 6:58 PM Liliana Layne RN Active * Do you have serious difficulty walking or climbing stairs? Answer Date of Assessment Author Status Yes 07/12/2023 6:58 PM Liliana Layne RN Active * Do you have difficulty dressing or bathing? Answer Date of Assessment Author Status No 07/12/2023 6:58 PM Liliana Layne RN Active * Because of a physical, mental, or emotional condition, do you have difficulty doing errands alone such as visiting a doctor's office or shopping? Answer Date of Assessment Author Status No 07/12/2023 6:58 PM Liliana Layne RN Active documented as of this encounter Mental Status * Because of a physical, mental, or emotional condition, do you have serious difficulty concentrating, remembering, or making decisions? Answer Entry Date Author Status No 07/12/2023 6:58 PM Liliana Layne RN Active documented in this encounter Medications at Time of Discharge albuterol sulfate HFA 108 (90 Base) MCG/ACT inhaler Inhale 2 puffs into the lungs every 4 (four) hours as needed. 11/14/2015 allopurinol 300 MG tablet Take 1 tablet (300 mg total) by mouth daily. 02/17/2019 aspirin 81 MG chewable tablet Chew 1 tablet (81 mg total) by mouth daily. 04/18/2014 4 atorvastatin 80 MG tablet Take 1 tablet (80 mg total) by mouth nightly at bedtime. 12/31/2016 carvedilol (COREG) 3.125 MG tablet Take 1 tablet (3.125 mg total) by mouth 2 (two) times daily. 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 One garment each leg 2 Package 08/17/2023 4 cyclobenzaprine (FLEXERIL) 10 MG tablet Take 1 tablet (10 mg total) by mouth 3 (three) times daily as needed for Muscle Spasms. 4 docusate sodium 100 MG capsule Take 1 capsule (100 mg total) by mouth as needed for Constipation. ferrous sulfate, 65 mg elemental, 325 (65 FE) MG tablet Take 1 tablet (325 mg total) by mouth daily with breakfast. 4 folic acid (FOLVITE) 1 MG tablet Take 1 tablet (1 mg total) by mouth daily. furosemide (LASIX) 80 MG tablet Take 1 tablet (80 mg total) by mouth daily. 30 tablet 07/17/2023 gabapentin (NEURONTIN) 400 MG capsule Take 1 capsule (400 mg total) by mouth 2 (two) times daily. 90 capsule 07/16/2023 4 glipiZIDE XL (GLUCOTROL XL) 5 MG 24 hr tablet Take 1 tablet (5 mg total) by mouth daily with breakfast. 30 tablet 02/09/2023 HYDROcodone-acetami nophen (NORCO) 10-325 MG tabletIndications:A cute Pain < 7 Day Supply Take 1 tablet by mouth every 6 (six) hours as needed. Indications: Acute Pain < 7 Day Supply 15 tablet 07/16/2023 5 hydrOXYzine (ATARAX) 50 MG tablet Take 1 tablet (50 mg total) by mouth 3 (three) times daily. As needed 10/09/2022 insulin detemir (LEVEMIR FLEXPEN) 100 UNIT/ML PEN Inject 15 Units into the skin nightly at bedtime. 9 mL 02/09/2023 4 JARDIANCE 25 MG tablet Take 1 tablet (25 mg total) by mouth daily. 10/31/2022 metFORMIN (GLUCOPHAGE) 500 MG tablet Take 1 tablet (500 mg total) by mouth 2 (two) times daily with meals. 4 pantoprazole EC 40 MG tablet Take 1 tablet (40 mg total) by mouth daily. potassium chloride CR (KLOR-CON M) 20 MEQ tablet Take 1 tablet (20 mEq total) by mouth 2 (two) times daily. 4 rOPINIRole (REQUIP) 4 MG tablet Take 1 tablet (4 mg total) by mouth nightly at bedtime. 10/17/2022 4 sacubitril-valsarta n (ENTRESTO) 24-26 MG tabletIndications:C hronic combined systolic and diastolic congestive heart failure (CMS/HCC HHS/HCC) Take 1 tablet by mouth 2 (two) times daily. 60 tablet 11 01/31/2024 sertraline 50 MG tablet Take 1 tablet (50 mg total) by mouth daily. 10/03/2021 spironolactone (ALDACTONE) 25 MG tablet Take 1 tablet (25 mg total) by mouth daily. 30 tablet 07/16/2023 4 tiZANidine (ZANAFLEX) 4 MG tablet Take 1 tablet (4 mg total) by mouth 3 (three) times daily as needed. 4 traZODone (DESYREL) 150 MG tablet Take 2 tablets (300 mg total) by mouth nightly at bedtime. 03/24/2022 TRELEGY ELLIPTA 100-62.5-25 MCG/ACT AEROSOL POWDER, BREATH ACTIVATED Inhale 1 puff into the lungs daily. 12/23/2022 triamcinolone (KENALOG) 0.1 % cream Apply topically 2 (two) times daily. 15 g 07/16/2023 4 warfarin (COUMADIN) 1 MG tablet Take 1 tablet (1 mg total) by mouth daily. Take with 5mg tab to make it 6 mg daily. Repeat INR in 3-4 days to adjust the dose of warfarin as per PCP 30 tablet 02/18/2023 4 warfarin (COUMADIN) 5 MG tablet Take 1 tablet (5 mg total) by mouth daily. Take with 1 mg tab to make it 6 mg daily. Repeat INR in 3-4 days to adjust the dose of warfarin as per PCP 30 tablet 02/18/2023 4 documented as of this encounter Progress Notes * Mary Moore RN - 05/22/2024 2:00 PM CDTEncounter addended by: Mary Moore RN on: 05/22/2024 3:19 PM Actions taken: MAR administration accepted documented in this encounter Plan of Treatment Upcoming Encounters Date Type Department Care Team (Late st Contact Info) Description 09/25/2024 2:00 PM SENIOR ANALYTICAL CHEMIST Appointment [facility] [address] [place] [address] Zayra Powell, COMPUTER NETWORKING INSTRUCTOR [employer] [address] [place] [address] 10/16/2024 3:30 PM SENIOR ANALYTICAL CHEMIST Office Visit [facility] [address] [place] [address] Brit Gonzáles MD [address] [place] [address] documented as of this encounter Goals Goal Patient Goal Type Associated Problems Recent Progress Patient-Stated? 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) documented in this encounter Administered Medications Inactive Administered Medications - up to 3 most recent administrations Medication Order MAR Action Action Date Dose Rate Site lidocaine 2 % URO-JET jelly Topical, Once, 1 dose, On Wed05/22/24 at 1445Indications: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),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) Given 05/22/2024 2:10 PM CDT documented in this encounter Additional Health Concerns Assessment Noted Time PHQ-9 Depression Total Score: 0 12/02/19 22 1:18 PM CDT documented as of this encounter Care Teams Sustainable Design Coordinator Relationship Specialty Start Date End Date Megan Infante MD [address] [place] [phone] PCP - General FAMILY PRACTICE 04/06/16 Zaki Ortiz MD [address] [place] [phone] Consulting Physician PULMONARY DISEASE 07/12/19 Romeo-Concetta Pond MD [address] [place] [address] [phone] Surgeon NEUROLOGICAL SURGERY 12/16/22 Jeff Grace MD [address] [place] [address] [phone] Consulting Physician INTERNAL MEDICINE 02/11/23 Brit Gonzáles MD [address] [place] [address] Consulting Physician CARDIOVASCULAR DISEASE 12/29/23 documented as of this encounter
--- OUTSIDE RECORDS SUMMARY | 2024-09-03 19:06 | XMS_ITS | Encounter Summary ---
Author Organization [facility] Address Critical access hospital6 [facility] [place] [address] [place] [address] Care Team Providers Care Research Rn Spec Name Role Phone Megan Infante MD Primary Care Provider [phone] Zaki Ortiz MD Unavailable [phone] Concetta Acevedo MD Unavailable + [phone] Jeff Grace MD Unavailable Brit Gonzáles MD Unavailable Encounter Details Date Type Department Care Team (Late st Contact Info) Description 08/14/2024 2:10 PM MANUAL TESTER - 08/14/2024 11:59 PM RUST Hospital Encounter [facility] [address] [place] [address] Zayra Powell, CAP INSPECTOR [address] [place] [phone] Discharge Disposition: Home or Self Care (Routine Discharge) Social History Tobacco Use Types Packs/Day Years Used Date Smoking Tobacco: Former Passive Smoke Exposure: Past Smokeless Tobacco: Former Chew Alcohol Use Standard Drinks/Week Comments Yes 0 (1 standard drink = 0.6 oz pur e alcohol) 4 beers per week [facility] Utilities Answer Date Recorded In the [...] declined 02/16/2023 How often do you attend mandaeism or samaritan serv ices? Patient declined 02/16/2023 Do you belong to any clubs o r organizations such as mandaeism groups, unions, fraternal or athletic groups, or [...] move on to questions 3-9 0 12/01/2021 [facility] - Occupational Stress Questionnaire Answer Date [...] place to sleep or slept in a half-way (including now)? Patient declined 07/12/2023 Housing Stability [...] any time in the past 12 m [facility], were you homeless or living in a half-way (including now)? No 07/31/2024 Sex and Gender [...] encounter Progress Notes * LALIT Cheney - 08/14/2024 2:30 PM CSTEncounter addended by: LALIT Cheney on: 08/14/2024 3:08 PM Actions taken: Order list changed AL TESTER documented in this encounter Plan of Treatment Upcoming Encounters Date Type Department Care Team (Late st Contact Info) Description 09/25/2024 2:[address] [facility] [address] [place] [address] [place] Zayra K, CAP INSPECTOR [address] [place] [address] 10/16/2024 3:30 PM MANUAL TESTER Office Visit [facility] [address] [place] [phone] Brit Gonzáles MD [address] [place] [address] documented as of this encounter Goals Goal Patient Goal Type Associated Problems Recent Progress Patient-Stated? 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) documented in this encounter Additional Health Concerns Assessment Noted Time PHQ-9 Depression Total Score: 0 12/02/19 22 1:18 PM CDT documented as of this encounter Care Teams Research Rn Spec Relationship Specialty Start Date End Date Megan Infante MD [address] [place] [address] PCP - General FAMILY PRACTICE 04/06/16 Zaki Ortiz MD [address] [place] [address] Consulting Physician PULMONARY DISEASE 07/12/19 Romeo-Concetta Pond MD [address] [place] [address] Surgeon NEUROLOGICAL SURGERY 12/16/22 Jeff Grcae MD [address] [place] [address] Consulting Physician INTERNAL MEDICINE 02/11/23 Brit Gonzáles MD [address] [place] [address] Consulting Physician CARDIOVASCULAR DISEASE 12/29/23 documented as of this encounter
--- OUTSIDE RECORDS SUMMARY | 2024-09-03 19:06 | XMS_ITS | Encounter Summary ---
Author Organization [facility] Address [facility]6 [facility] [place] [address] [place] [address] Care Team Providers Care Desk Attendant Name Role Phone Megan Infante MD Primary Care Provider [phone] Zaki Ortiz MD Unavailable [phone] Concetta Acevedo MD Unavailable + [phone] Jeff Grace MD Unavailable Brit Gonzáles MD Unavailable Encounter Details Date Type Department Care Team (Latest Contact Info) Description 07/31/2024 Travel Social History Tobacco Use Types Packs/Day Years Used Date Smoking Tobacco: Former Passive Smoke Exposure: Past Smokeless Tobacco: Former Chew Alcohol Use Standard Drinks/Week Comments Yes 0 (1 standard drink = 0.6 oz pur e alcohol) 4 beers per week [facility] Utilities Answer Date Recorded In the past 12 months has [facility] [employer], gas, oil, or water [employer] threatened to shut off services in your [...] declined 02/16/2023 How often do you attend scientology or christianity serv ices? Patient declined 02/16/2023 Do you belong to any clubs o r organizations such as scientology groups, unions, fraternal or athletic groups, or [...] move on to questions 3-9 0 12/01/2021 [facility] - Occupational Stress [...] place to sleep or slept in a mcc (including now)? Patient declined 07/12/2023 Housing Stability [...] any time in the past 12 m [facility], were you homeless or living in a mcc (including now)? No 07/31/2024 Sex and Gender Information Value Date Recorded Sex Assigned at Not on file Legal Sex Male 10:01 PM CDT Gender Identity Not on file Sexual Orientation Not on file Occupation Industry Job Start Date Job End Date Not on file Not on file Not on file Not on file documented as of this encounter Functional Status * Question Answer Date of Assessment Author Status Do you have serious difficulty walking or climbing stairs? Yes 07/31/2024 5:50 PM Abril Prather RN Activ e * Question Answer Date of Assessment Author Status Do you have difficulty dressing or bathing? Yes 07/31/2024 5:50 PM Abril Prather RN A ctive Because of a physical, mental, or emotional condition, do you have difficulty doing errands alone such as visiting a doctor's office or shopping? No 07/31/2024 5:50 PM Abril Prather RN Active * Are you deaf or do you have serious difficulty hearing Answer Date of Assessment Author Status No 07/31/2024 5:50 PM Abril Prather RN Active * Are you blind or do you have serious difficulty seeing, even when wearing glasses? Answer Date of Assessment Author Status No 07/31/2024 5:50 PM LOAD PLANNER Abril Contreras RN Active * Do you have serious [...] as of this encounter Mental Status * Question Answer Entry Date Author Status Because of a physical, mental, or emotional condition, do you have serious difficulty concentrating, remembering, or making decisions? Yes 07/31/2024 5:50 PM LOAD PLANNER Abril Contreras RN A ctive * Because of a physical, mental, or emotional condition, do you have serious difficulty concentrating, remembering, or making decisions? Answer Entry Date Author Status Yes 07/31/2024 5:50 PM Abril Prather RN Active documented in this encounter Plan of Treatment Upcoming Encounters Date Type Department Care Team (Late st Contact Info) Description 09/25/2024 2:00 PM LOAD PLANNER Appointment [facility] [address] [place] [address] Zayra Powell, APPRENTICE PAINTER HAND [address] [place] [address] 10/16/2024 3:30 PM LOAD PLANNER Office Visit [facility] [address] [place] [phone] Brit Gonzáles MD [address] [place] [address] documented as of this encounter Goals Goal [...] documented as of this encounter Care Teams Desk Attendant Relationship Specialty Start Date End Date Megan Infante MD [address] [place] [phone] PCP - General FAMILY PRACTICE 04/06/16 Zaki Ortiz MD [address] [place] [phone] Consulting Physician PULMONARY DISEASE 07/12/19 Concetta Acevedo MD [address] [place] [address] Surgeon NEUROLOGICAL SURGERY 12/16/22 Jeff Grace MD [address] [place] [address] Consulting Physician INTERNAL MEDICINE 02/11/23 Brit Gonzáles MD [address] [place] [address] [phone] Consulting Physician CARDIOVASCULAR DISEASE 12/29/23 documented as of this encounter
--- OUTSIDE RECORDS SUMMARY | 2024-09-03 19:06 | XMS_ITS | Clinical Summary ---
Author Organization [facility] Address [facility] [place] [address] [place] [address] Care Team Providers Care Egg Processing Supervisor Name Role Phone Megan Infante MD Primary Care Provider [phone] Zaki Ortiz MD Unavailable [phone] Concetta Acevedo MD Unavailable + [phone] Jeff Grace MD Unavailable Brit Gonzáles MD Unavailable Allergies No known active allergies Medications albuterol sulfate HFA 108 (90 Base) MCG/ACT inhaler Inhale 2 puffs into the lungs every 4 (four) hours as needed. 11/14/19 16 Suspended atorvastatin 80 MG tablet Take 1 tablet (80 mg total) by mouth nightly at bedtime. 01/01/20 17 Suspended allopurinol 300 MG tablet Take 1 tablet (300 mg total) by mouth daily. 02/18/20 19 Suspended sertraline 50 MG tablet Take 1 tablet (50 mg total) by mouth daily. 10/03/19 22 Suspended pantoprazole EC 40 MG tablet Take 1 tablet (40 mg total) by mouth daily. Suspended docusate sodium 100 MG capsule Take 1 capsule (100 mg total) by mouth as needed for Constipation. Suspended traZODone (DESYREL) 150 MG tablet Take 2 tablets (300 mg total) by mouth nightly at bedtime. 03/24/20 22 Suspended carvedilol (COREG) 3.125 MG tablet Take 1 tablet (3.125 mg total) by mouth 2 (two) times daily. 10/09/19 Suspended hydrOXYzine (ATARAX) 50 MG tablet Take 1 tablet (50 mg total) by mouth 3 (three) times daily. As needed 10/09/19 Suspended JARDIANCE 25 MG tablet Take 1 tablet (25 mg total) by mouth daily. 11/01/19 Suspended TRELEGY ELLIPTA 100-62.5-25 MCG/ACT AEROSOL POWDER, BREATH ACTIVATED Inhale 1 puff into the lungs daily. 12/24/19 Suspended glipiZIDE XL (GLUCOTROL XL) 5 MG 24 hr tablet Take 1 tablet (5 mg total) by mouth daily with breakfast. 30 tablet 02/10/20 Suspended folic acid (FOLVITE) 1 MG tablet Take 1 tablet (1 mg total) by mouth daily. Suspended furosemide (LASIX) 80 MG tablet Take 1 tablet (80 mg total) by mouth daily. 30 tablet 07/17/20 Suspended HYDROcodone-ac etaminophen (NORCO) 10-325 MG tabletIndicati ons:Acute Pain < 7 Day Supply Take 1 tablet by mouth every 6 (six) hours as needed. Indications: Acute Pain < 7 Day Supply 15 tablet 07/16/20 23 025 Discontinued (Error) sacubitril-kaitlynn sartan (ENTRESTO) 24-26 MG tabletIndicati ons:Chronic combined systolic and diastolic congestive heart failure (CMS/HCC HHS/HCC) Take 1 tablet by mouth 2 (two) times daily. 60 tablet 11 01/31/20 24 Suspended clotrimazole-b etamethasone (LOTRISONE) cream 1 Application every 12 (twelve) hours. 07/06/20 Suspended pregabalin (LYRICA) 150 MG capsule Take 1 capsule (150 mg total) by mouth 2 (two) times daily. Suspended Semaglutide (OZEMPIC, 1 MG/DOSE, SC) Inject into the skin once a week. Suspended warfarin (COUMADIN) 4 MG tablet Take 1 tablet (4 mg total) by mouth daily. Monitor INR every 3-4 days and follow up closely with PCP 30 tablet 08/03/20 24 Suspended Additional Information Patient taking differently: 2 mgOral Daily, Monitor INR every 3-4 days and follow up closely with PCP, Reported on 08/31/2024 nystatin (MYCOSTATIN) powder Apply topically 2 (two) times daily. Apply to groin, under abdominal fold 15 g 08/03/20 24 Suspended HYDROcodone-ac etaminophen (NORCO) 7.5-325 MG tablet Take 1 tablet by mouth every 8 (eight) hours as needed for Pain. Suspended Active Problems Problem Noted Date Diagnosed Date Chronic venous insufficiency 04/17/2024 CHF exacerbation ([facility]) 07/12/2023 Rib fractures 02/06/2023 NSTEMI (non-ST elevated myoc ardial infarction) ([facility]) 02/01/2022 Elevated troponin 02/01/2022 Elevated brain natriuretic peptide (BNP) level 0 02/01/2022 Fall 02/01/2022 Other closed fracture of dis kaity end of right fibula with routine healing, subsequent encounter 01/29/2022 Leg edema 12/09/2021 Mild persistent asthma without complication ([facility]) 04/06/2021 Asymptomatic carotid artery stenosis, bilateral 11/26/2020 Obstructive sleep apnea (adult) (pediatric) 10/21 Pulmonary hypertension ([facility]) 021 TIA (transient ischemic attack) 09/03/2020 Pain in both lower extremities 03/07/2019 Chronic atrial fibrillation ([facility]) Chronic anticoagulation 02/15/2017 Abnormal finding on lung imaging 02/14/2014 Abnormal finding on pulmonary function testing 0 02/14/2014 Overview (05/05/2019): Description: non-specific ventilatotry defect. No clear restriction/obstruction.; ; Reduced diffusion capacity. Shortness of breath 02/14/2014 S/P ablation of atrial fibrillation 08/23/2013 Overview (04/05/2016): 2013 S/P aortic valve replacement with bioprosthetic valve 08/23/2013 Overview (09/24/2018): 2013 LV dysfunction Essential hypertension Mixed hyperlipidemia Diabetes mellitus, type II ([facility]) Coronary artery disease invo lving [place] coronary artery of [place] heart without angina pectoris COPD (chronic obstructive pu lmonary disease) (CMS/HCC HHS/HCC) Carotid disease, bilateral Arthritis Aortic stenosis Varicose veins of bilateral lower extremities with other complications Abnormal ankle brachial index (STELLA) Claudication CHF (congestive heart failure) ([facility]/HCC HHS/HCC) 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 (CMS/HCC HHS/HCC) Non-pressure chronic ulcer o f left calf limited to breakdown of skin (CMS/HCC HHS/HCC) Resolved Problems Problem Noted Date Diagnosed Date Resolved Date Encounter for preventive health examination 02/06/2014 05/03/2020 PAD (peripheral artery disease) 04/11/2019 Encounters Date Type Department Care Team Description 08/31/2024 8:49 AM COMMERCIAL CREDIT OFFICER - Present Hospital Encounter [facility] [address] [place] [address] Chidi Umanzor MD Jabeen, Sayeeda A, MD 08/31/2024 Travel 08/24/2024 1:15 PM COMMERCIAL CREDIT OFFICER Office Visit [facility] [address] [place] [address] Arnold Hernandez MD New Patient (Ventral hernia) 08/24/2024 Travel 08/14/2024 2:10 PM COMMERCIAL CREDIT OFFICER - 08/14/2024 11:59 PM COMMERCIAL CREDIT OFFICER Hospital Encounter [facility] [address] [place] [address] Zayra Powell FNP Discharge Disposition: Home or Self Care (Routine Discharge) 08/14/2024 Travel 08/08/2024 1:52 PM COMMERCIAL CREDIT OFFICER - 08/08/2024 11:59 PM COMMERCIAL CREDIT OFFICER Hospital Encounter [facility] [address] [place] [address] Zayra Powell FNP Discharge Disposition: Home or Self Care (Routine Discharge) 08/08/2024 Travel 07/31/2024 3:15 PM COMMERCIAL CREDIT OFFICER - 08/03/2024 1:08 PM COMMERCIAL CREDIT OFFICER Hospital En[facility] [address] [place] [address] Jena Schilling MD Fisher, Amy E, MD Ishmael, Timothy L, MD Shortness Of Breath Discharge Disposition: Home or Self Care (Routine Discharge) 07/31/2024 Travel from Last 3 Months Immunizations Name Administration Dates Next Due Influenza (Generic) 04/23/2016,05/23/2013 Influenza Adult (Generic) 05/23/2021,12/2019,05/14/2016,04/23/2016,05/24,05/28/2014 Pneumococcal (Pneumovax 23) 08/23/2012, 2 Tdap (Boostrix) 02/06/2023 Family History Medical History Relation Comments TB Mother Relation Status Comments Brother Alive Father Maternal Grandfather Maternal Grandmother Mother Paternal Grandfather Paternal Grandmother Sister Alive Social History Tobacco Use Types Packs/Day Years Used Date Smoking Tobacco: Former Passive Smoke Exposure: Past Smokeless Tobacco: Former Chew Tobacco Cessation:Counseling Given: No Alcohol Use Standard Drinks/Week Comments Yes 0 (1 standard drink = 0.6 oz pur e alcohol) 4 beers per week [facility] [employer] Answer Date Recorded In the past 12 months has [employer], [employer], oil, or water [employer] threatened to shut off services in your home? No 08/31/2024 Humiliation, Afraid, Rape, and Kick questionnair e Answer Date Recorded Within the last year, have y ou been afraid of your partner or ex-partner? No 08/31/2024 Within the last year, have y ou been humiliated or emotionally abused in other ways by your partner or ex-partner? No Within the last year, have y ou been kicked, hit, slapped, or otherwise physically hurt by your partner or ex-partner? No 08/31/2024 Within the last year, have y ou been raped or forced to have any kind of sexual activity by your partner or ex-partner? No 08/31/2024 Social Connection and Isolation Panel [NHANES] A nswer Date Recorded In a typical week, how many times do you talk on the phone with family, friends, or neighbors? Patient declined 02/16/2023 How often do you get togethe r with friends or relatives? Patient declined 02/16/2023 How often do you attend amish or buddhism serv ices? Patient declined 02/16/2023 Do you belong to any clubs o r organizations such as amish groups, unions, fraternal or athletic groups, or [...] food, housing, medical care, and heating? Not very hard 08/31/2024 PHQ-2 Answer Date Recorded PHQ-2 Score - If the patient scores above 3, please move on to questions 3-9 0 12/01/2021 [facility] - Occupational [...] the money to buy more. Never true 08/31/19 25 Within the past 12 months, t he food you bought just didn't last and you didn't have money to get more. Never true 08/31/2024 PRAPARE - Transportation Answer Date Re corded In the past 12 months, has l ack of transportation kept you from medical appointments or from getting medications? No 04/2025 In the past 12 months, has l ack of transportation kept you from meetings, work, or from getting things needed for daily living? No 08/31/2024 Housing Stability Vital Sign Answer Stevenson e [...] place to sleep or slept in a jail (including now)? Patient declined 07/12/2023 Housing Stability Vital Sign Answer Stevenson e Recorded In the last 12 months, was t here a time when you were not able to pay the mortgage or rent on time? No 08/31/2024 In the past 12 months, how m any times have you moved where you were living? 0 08/31/2024 At any time in the past 12 m [facility], were you homeless or living in a jail (including now)? No 08/31/2024 Sex and Gender Information Value Date Recorded Sex Assigned at Not on file Legal Sex Male 10:01 PM CDT Gender Identity Not on file Sexual Orientation Not on file Occupation Industry Job Start Date Job End Date Not on file Not on file Not on file Not on file Last Filed Vital Signs Vital Sign Reading Time Taken Comments Blood Pressure 147/84 09/03/2024 4:05 PM COMMERCIAL CREDIT OFFICER Pulse 138 09/03/2024 4:05 PM COMMERCIAL CREDIT OFFICER Temperature 36.7 ??C (98.1 ??F) 09/03/2024 4:05 PM CS T Respiratory Rate 23 09/03/2024 4:05 PM COMMERCIAL CREDIT OFFICER Oxygen Saturation 90% 09/03/2024 4:05 PM COMMERCIAL CREDIT OFFICER Inhaled Oxygen Concentration - - Weight 95.3 kg (210 lb 1.6 oz) 09/03/2024 4:23 A M COMMERCIAL CREDIT OFFICER Height 167.6 cm (5' 6 ) 08/31/2024 9:47 AM COMMERCIAL CREDIT OFFICER Body Mass Index 33.91 08/31/2024 9:47 AM COMMERCIAL CREDIT OFFICER Plan of Treatment Upcoming Encounters Date Type Department Care Team (Late st Contact Info) Description 09/25/2024 2:00 PM COMMERCIAL CREDIT OFFICER Appointment [facility] [address] [place] [address] Zayra Powell, ACCOUNTS RECEIVABLE ACCOUNTANT [address] [place] [address] 10/16/2024 3:30 PM COMMERCIAL CREDIT OFFICER Office Visit [facility] [place] [place] [address] [place] [phone] Brit Gonzáles MD [address] [place] [address] Health Maintenance Due Date Last Done Comments Kidney Health Evaluation 1954 Diabetes: Retinopathy Eye Exam 1972 Zoster Vaccines (1 of 2) 2004 Pneumococcal Vaccine: 65+ Years (2 of 2 - PCV) 08/23/2013 08/23/2012, 04/17/2012 RSV Immunization or 60+ Years (1 - Risk 60-74 years 1-dose series) 2014 Annual Medicare Wellness Visit 2019 ASCVD LDL 02/01/2023 02/01/2022, 10/2016, 03/24/2016, Additional history exists Lipid Panel 02/01/2023 02/01/2022, 02/15/2013 COVID-19 Vaccine ( season) 2024 07/29/2021, 11/14/2020, 10/16/2020 Influenza Adult (#1) 2024 06/04/2023, 05/23/2021, 05/27/2020, Additional history exists Hemoglobin A1C 03/01/2025 09/01/2024, 01/22, 02/16/2023, Additional history exists Colorectal Cancer Screening Colonoscopy (10 Years) 01/28/2032 01/27/2022, 01/27/2022, 03/18/2021, Additional history exists DTaP, Tdap and Td Vaccines (2 - Td or Tdap) 02/06/2033 02/06/2023 Hepatitis C Completed 12/24/2022 AAA SCREENING Completed 11/17/2023, 06/24, 02/06/2023, Additional history exists Meningococcal Vaccine Aged Out No octavia terry eligible based on patient's age to complete this topic RSV Immunizations Under 20 Months Aged Out No longer eligible based on patient's age to complete this topic Goals Goal Patient Goal Type Associated Problems Recent Progress Patient-Stated? Author Family - family caregiver with be involved in care transitions and discharge planning Lifestyle No Karen Quezada RN Procedures * The patient is currently admitted. The information in this section might not be complete until the patient is discharged. Procedure Name Priority Date/Time Associated Diagnosis Comments POCT GLUCOSE - VALLECILLO DOCKED DEVICE Routine 09/03/2024 5:22 PM COMMERCIAL CREDIT OFFICER POCT GLUCOSE - VALLECILLO DOCKED DEVICE Routine 09/03/2024 4:03 PM COMMERCIAL CREDIT OFFICER CULTURE, BACTERIA, BLOOD Routine 09/03/2024 12:23 PM COMMERCIAL CREDIT OFFICER POCT GLUCOSE - VALLECILLO DOCKED DEVICE Routine 09/03/2024 10:55 AM COMMERCIAL CREDIT OFFICER XR CHEST PORTABLE Today 09/03/2024 9:3 5 AM COMMERCIAL CREDIT OFFICER BLOOD GAS, ARTERIAL LAB Routine 09/03/2024 9:09 AM COMMERCIAL CREDIT OFFICER COMPREHENSIVE METABOLIC PANEL Routine 09/03/2024 5:06 AM COMMERCIAL CREDIT OFFICER PROTHROMBIN TIME, VENOUS Routine 09/03/2024 5:06 AM COMMERCIAL CREDIT OFFICER CBC W/DIFF AUTOMATED Routine 09/03/2024 5:06 AM COMMERCIAL CREDIT OFFICER POCT GLUCOSE - VALLECILLO DOCKED DEVICE Routine 09/03/2024 4:44 AM COMMERCIAL CREDIT OFFICER RENAL FUNCTION PANEL Routine 09/02/2024 11:25 PM COMMERCIAL CREDIT OFFICER POCT GLUCOSE - VALLECILLO DOCKED DEVICE Routine 09/02/2024 8:47 PM COMMERCIAL CREDIT OFFICER POCT GLUCOSE - VALLECILLO DOCKED DEVICE Routine 09/02/2024 4:07 PM COMMERCIAL CREDIT OFFICER POCT GLUCOSE - VALLECILLO DOCKED DEVICE Routine 09/02/2024 11:56 AM COMMERCIAL CREDIT OFFICER COMPREHENSIVE METABOLIC PANEL Routine 09/02/2024 7:41 AM COMMERCIAL CREDIT OFFICER PROTHROMBIN TIME, VENOUS Routine 09/02/2024 7:41 AM COMMERCIAL CREDIT OFFICER CBC W/DIFF AUTOMATED Routine 09/02/2024 7:41 AM COMMERCIAL CREDIT OFFICER POCT GLUCOSE - VALLECILLO DOCKED DEVICE Routine 09/02/2024 6:26 AM COMMERCIAL CREDIT OFFICER POCT GLUCOSE - VALLECILLO DOCKED DEVICE Routine 09/02/2024 12:59 AM COMMERCIAL CREDIT OFFICER RENAL FUNCTION PANEL Routine 09/02/2024 12:30 AM COMMERCIAL CREDIT OFFICER POCT GLUCOSE - VALLECILLO DOCKED DEVICE Routine 09/01/2024 9:07 PM COMMERCIAL CREDIT OFFICER POCT GLUCOSE - VALLECILLO DOCKED DEVICE Routine 09/01/2024 4:14 PM COMMERCIAL CREDIT OFFICER POCT GLUCOSE - VALLECILLO DOCKED DEVICE Routine 09/01/2024 11:42 AM COMMERCIAL CREDIT OFFICER URINE BACTERIA CULTURE Nurse Collected Priority 09/01/2024 11:10 AM COMMERCIAL CREDIT OFFICER XR SPEECH SWALLOW SJS ONLY Routine 09/01/2024 9:59 AM COMMERCIAL CREDIT OFFICER THYROID STIM HORMONE TSH Routine 09/01/2024 8:19 AM COMMERCIAL CREDIT OFFICER HEMOGLOBIN, GLYCOSYLATED Routine 09/01/2024 8:19 AM COMMERCIAL CREDIT OFFICER MAGNESIUM Routine 09/01/2024 8:19 AM COMMERCIAL CREDIT OFFICER COMPREHENSIVE METABOLIC PANEL Routine 09/01/2024 8:19 AM COMMERCIAL CREDIT OFFICER PROTHROMBIN TIME, VENOUS Routine 09/01/2024 8:19 AM COMMERCIAL CREDIT OFFICER CBC W/DIFF AUTOMATED Routine 09/01/2024 8:19 AM COMMERCIAL CREDIT OFFICER POCT GLUCOSE - VALLECILLO DOCKED DEVICE Routine 09/01/2024 6:41 AM COMMERCIAL CREDIT OFFICER POCT GLUCOSE - VALLECILLO DOCKED DEVICE Routine 09/01/2024 12:55 AM COMMERCIAL CREDIT OFFICER US RETROPERITONEAL LTD Today 10:20 PM COMMERCIAL CREDIT OFFICER POCT GLUCOSE - VALLECILLO DOCKED DEVICE Routine 08/31/2024 6:34 PM COMMERCIAL CREDIT OFFICER CREATININE URINE RANDOM Nurse Collected Priority 08/31/2024 5:12 PM COMMERCIAL CREDIT OFFICER SODIUM URINE RANDOM Nurse Collected Priority 08/31/2024 5:12 PM COMMERCIAL CREDIT OFFICER HC URINALYSIS AUTO W/MICRO Nurse Collected Priority 08/31/2024 5:12 PM COMMERCIAL CREDIT OFFICER USE ECHOCARDIOGRAM W CON Today 08/31/2024 2:02 PM COMMERCIAL CREDIT OFFICER POCT GLUCOSE - VALLECILLO DOCKED DEVICE Routine 08/31/2024 1:02 PM COMMERCIAL CREDIT OFFICER ECG 12-LEAD Routine 08/31/2024 12:13 PM COMMERCIAL CREDIT OFFICER CK (CPK) Routine 08/31/2024 10:35 AM COMMERCIAL CREDIT OFFICER PROTHROMBIN TIME, VENOUS Routine 08/31/2024 10:35 AM COMMERCIAL CREDIT OFFICER PRO-BRAIN NATRIURETIC PEPTIDE Routine 08/31/2024 10:35 AM COMMERCIAL CREDIT OFFICER COMPREHENSIVE METABOLIC PANEL STAT 08/31/2024 10:35 AM COMMERCIAL CREDIT OFFICER CBC W/DIFF AUTOMATED STAT 08/31/2024 10:35 AM COMMERCIAL CREDIT OFFICER CULTURE, BACTERIA, BLOOD Routine 08/31/2024 10:34 AM COMMERCIAL CREDIT OFFICER XR CHEST PORTABLE Today 08/31/2024 10:16 AM COMMERCIAL CREDIT OFFICER POCT GLUCOSE - VALLECILLO DOCKED DEVICE Routine 08/31/2024 8:56 AM COMMERCIAL CREDIT OFFICER POCT GLUCOSE - VALLECILLO DOCKED DEVICE Routine 08/03/2024 11:14 AM COMMERCIAL CREDIT OFFICER POCT GLUCOSE - VALLECILLO DOCKED DEVICE Routine 08/03/2024 6:56 AM COMMERCIAL CREDIT OFFICER POCT GLUCOSE - VALLECILLO DOCKED DEVICE Routine 08/03/2024 6:40 AM COMMERCIAL CREDIT OFFICER POCT GLUCOSE - VALLECILLO DOCKED DEVICE Routine 08/03/2024 6:19 AM COMMERCIAL CREDIT OFFICER COMPREHENSIVE METABOLIC PANEL Routine 08/03/2024 5:46 AM COMMERCIAL CREDIT OFFICER CBC W/DIFF AUTOMATED Routine 08/03/2024 5:46 AM COMMERCIAL CREDIT OFFICER PROTHROMBIN TIME, VENOUS Routine 08/03/2024 5:46 AM COMMERCIAL CREDIT OFFICER POCT GLUCOSE - VALLECILLO DOCKED DEVICE Routine 08/02/2024 8:14 PM COMMERCIAL CREDIT OFFICER POCT GLUCOSE - VALLECILLO DOCKED DEVICE Routine 08/02/2024 4:10 PM COMMERCIAL CREDIT OFFICER POCT GLUCOSE - VALLECILLO DOCKED DEVICE Routine 08/02/2024 10:59 AM COMMERCIAL CREDIT OFFICER POCT GLUCOSE - VALLECILLO DOCKED DEVICE Routine 08/02/2024 6:20 AM COMMERCIAL CREDIT OFFICER COMPREHENSIVE METABOLIC PANEL Routine 08/02/2024 5:13 AM COMMERCIAL CREDIT OFFICER CBC W/DIFF AUTOMATED Routine 08/02/2024 5:13 AM COMMERCIAL CREDIT OFFICER PROTHROMBIN TIME, VENOUS Routine 08/02/2024 5:13 AM COMMERCIAL CREDIT OFFICER POCT GLUCOSE - VALLECILLO DOCKED DEVICE Routine 08/01/2024 8:50 PM COMMERCIAL CREDIT OFFICER POCT GLUCOSE - VALLECILLO DOCKED DEVICE Routine 08/01/2024 6:28 PM COMMERCIAL CREDIT OFFICER POCT GLUCOSE - VALLECILLO DOCKED DEVICE Routine 08/01/2024 5:09 PM COMMERCIAL CREDIT OFFICER POCT GLUCOSE - VALLECILLO DOCKED DEVICE Routine 08/01/2024 11:53 AM COMMERCIAL CREDIT OFFICER POCT GLUCOSE - VALLECILLO DOCKED DEVICE Routine 08/01/2024 7:39 AM COMMERCIAL CREDIT OFFICER POCT GLUCOSE - VALLECILLO DOCKED DEVICE Routine 08/01/2024 6:56 AM COMMERCIAL CREDIT OFFICER POCT GLUCOSE - VALLECILLO DOCKED DEVICE Routine 08/01/2024 6:35 AM COMMERCIAL CREDIT OFFICER PROTHROMBIN TIME, VENOUS STAT 08/01/2024 5:24 AM COMMERCIAL CREDIT OFFICER BASIC METABOLIC PANEL Routine 08/01/2024 5:24 AM COMMERCIAL CREDIT OFFICER CBC W/DIFF AUTOMATED STAT 08/01/2024 5:24 AM COMMERCIAL CREDIT OFFICER POCT GLUCOSE - VALLECILLO DOCKED DEVICE Routine 07/31/2024 8:41 PM COMMERCIAL CREDIT OFFICER POCT GLUCOSE - VALLECILLO DOCKED DEVICE Routine 07/31/2024 6:13 PM COMMERCIAL CREDIT OFFICER URINE BACTERIA CULTURE STAT 4:57 PM COMMERCIAL CREDIT OFFICER HC URINALYSIS AUTO W/MICRO STAT 07/31/2024 4:57 PM COMMERCIAL CREDIT OFFICER XR CHEST PORTABLE STAT 07/31/2024 3:5 5 PM COMMERCIAL CREDIT OFFICER CULTURE, BACTERIA, BLOOD STAT 07/31/2024 3:43 PM COMMERCIAL CREDIT OFFICER PRO-BRAIN NATRIURETIC PEPTIDE STAT 07/31/2024 3:36 PM COMMERCIAL CREDIT OFFICER MAGNESIUM STAT 07/31/2024 3:36 PM COMMERCIAL CREDIT OFFICER LACTIC ACID W REFLEX (SEPSIS) STAT 07/31/2024 3:36 PM COMMERCIAL CREDIT OFFICER TROPONIN, QUANT STAT 07/31/2024 3:36 PM COMMERCIAL CREDIT OFFICER COMPREHENSIVE METABOLIC PANEL STAT 07/31/2024 3:36 PM COMMERCIAL CREDIT OFFICER PROTHROMBIN TIME, VENOUS STAT 07/31/2024 3:36 PM COMMERCIAL CREDIT OFFICER CBC W/DIFF AUTOMATED STAT 07/31/2024 3:36 PM COMMERCIAL CREDIT OFFICER ECG 12-LEAD Routine 07/31/2024 3:32 PM COMMERCIAL CREDIT OFFICER CT ABD+PEL WO CON STAT 11/17/2023 3:0 8 PM CDT Rt flank pain HEPATITIS C ANTIBODY Routine 12/24/2022 3:05 PM CDT Decreased GFR LIPID PANEL Routine 02/01/2022 11:27 AM CDT COLONOSCOPY 01/27/2022 6:48 AM CDT from Last 3 Months or Most Recently Relevant to Health Maintenance Results * (ABNORMAL) POCT glucose (09/03/2024 5:22 PM COMMERCIAL CREDIT OFFICER) Only the most recent of34 resultswithin the time period is included. GLUCOSE POC 315(H) 70 - 109 09/03/2024 5:24 PM COMMERCIAL CREDIT OFFICER [facility] 09/03/2024 5:22 PM COMMERCIAL CREDIT OFFICER us Eduar Lindsay MD POCT ORDERABLES - DEVICE Fin al Result [facility] [address] [place] [address], [place] [phone] [id number] * XR CHEST PORTABLE (09/03/2024 9:35 AM COMMERCIAL CREDIT OFFICER) Only the most recent of3 resultswithin the time period is included. Anatomical Region Laterality Modality Chest Radiographic Stephie ging 09/03/2024 9:54 AM COMMERCIAL CREDIT OFFICER Impressions 09/03/2024 9:54 AM COMMERCIAL CREDIT OFFICER IMPRESSION: Persistent bilateral alveolar and interstitial opacification concerning for pneumonia or pulmonary edema. Slight improvement as compared to August 31. Referred By: PROVIDER NON-STAFF Interpreted By: Klever Edwards MD, 09/03/2024 9:54 AM Narrative 09/03/2024 9:54 AM COMMERCIAL CREDIT OFFICER [facility] [address], [place] [address] Procedure(s): XR CHEST PORTABLE Date of service: 09/03/2024 9:32 AM Provided clinical information: 69 years, Male, Increasing SOB Procedure and materials: AP portable Comparison studies: August 31, 2024. Findings: Patient is post sternotomy. Cardiac silhouette upper limits of normal in size. There are persistent alveolar and interstitial opacifications that are present. This is concerning for pneumonia or pulmonary edema. Slight improvement as compared to September 10. Suspect a chronic rotator cuff tear about the right shoulder. Postfusion changes lower cervical spine. Procedure Note Klever Edwards MD - 09/03/[address] [address] Procedure(s): XR CHEST PORTABLE Date of service: 09/03/2024 9:32 AM Provided clinical information: 69 years, Male, Increasing SOB Procedure and materials: AP portable Comparison studies: August 31, 2024. Findings: Patient is post sternotomy. Cardiac silhouette upper limits of normal insize. There are persistent alveolar and interstitial opacifications thatare present. This is concerning for pneumonia or pulmonary edema. Slightimprovement as compared to September 10. Suspect a chronic rotator cuff tear about the right shoulder. Postfusionchanges lower cervical spine. IMPRESSION: Persistent bilateral alveolar and interstitial opacification concerningfor pneumonia or pulmonary edema. Slight improvement as compared toJan. Referred By: PROVIDER NON-STAFF Interpreted By: Klever Edwards MD, 09/03/2024 9:54 AM us Marlin Pena DIRECTOR OF [employer]ATION GENERAL IMAGING Final Re sult * (ABNORMAL) ARTERIAL BLOOD GAS (09/03/2024 9:09 AM COMMERCIAL CREDIT OFFICER) PH ARTERIAL 7.34(L) 7.35 - 7.45 09/03/2024 9:17 AM COMMERCIAL CREDIT OFFICER [facility] PCO2 51.3(H) 35.0 - 45.0 [facility] 09/03/2024 9:17 AM [facility] PO2 78.7(L) 83.0 - 108.0 [facility] 09/03/2024 9:17 AM [facility] BICARB ARTERIAL 27.1(H) 22 - 26 MMOL/L 09/03/2024 9:17 AM [facility] TOTAL CO2 CAPILLARY 28.7(H) 23 - 27 MMOL/L 09/03/2024 9:17 AM [facility] [facility] LAB BE/BASE EXCESS 1.1 0 - 2 MMOL/L 09/03/2024 9:17 AM [facility] O2 Saturation 94(L) 95 - 98 % 09/03/2024 9:17 AM [facility] HEATHER TEST POSITIVE 09/03/2024 9:09 AM [facility] OXYGEN STATUS NASAL CANULA 9:09 AM [facility] DRAW SITE ARTERIAL LT RADIAL 09/03/2024 9:09 AM [facility] 09/03/2024 9:09 AM COMMERCIAL CREDIT OFFICER Marlin Pena DIRECTOR OF PARKS AND RECREATION LABORATORY Final Re sult [facility] [address] [place] [address], [phone] * (ABNORMAL) PROTHROMBIN TIME, VENOUS (09/03/2024 5:06 AM COMMERCIAL CREDIT OFFICER) Only the most recent of8 resultswithin the time period is included. PROTIME 30.2(H) 9.4 - 12.5 SEC 09/03/2024 6:07 AM [facility] INR 2.6(H) 0.8 - 1.1 09/03/2024 6:07 AM [facility] 09/03/2024 5:06 AM COMMERCIAL CREDIT OFFICER Zaria Mccarthy [facility] Final R esult [facility] [address] [place] [address], [place] [phone] * (ABNORMAL) COMPREHENSIVE METABOLIC PANEL (09/03/2024 5:06 AM COMMERCIAL CREDIT OFFICER) Only the most recent of7 resultswithin the time period is included. Pathologist [facility] SODIUM S/P/B 145 136 - 145 MMOL/L 09/03/2024 5:56 AM [facility] POTASSIUM S/P/B 4.1 3.5 - 5.1 MMOL/L 09/03/2024 5:56 AM [facility] CHLORIDE S/P/B 112 97 - 115 MMOL/L 09/03/2024 5:56 AM [facility] CO2 28.3 21.0 - 32.0 MMOL/L 09/03/2024 5:56 AM [facility] GLUCOSE 218(H) 74 - 106 MG/DL 09/03/2024 5:56 AM [facility] BUN 56(H) 7 - 18 MG/DL 09/03/2024 5:56 AM [facility] CREATININE S/P/B 1.81(H) 0.70 - 1.30 MG/DL 09/03/2024 5:56 AM [facility] CALCIUM S/P/B 9.8 8.5 - 10.1 MG/DL 09/03/2024 5:56 AM [facility] BILIRUBIN TOTAL S/P/B 1.7(H) 0.2 - 1.0 MG/DL 09/03/2024 5:56 AM [facility] ALKALINE PHOSPHATASE S/P/B 129(H) 45 - 115 U/L 09/03/2024 5:56 AM [facility] AST 23 15 - 37 U/L 09/03/2024 5:56 AM [facility] ALT 21 16 - 61 U/L 09/03/2024 5:56 AM [facility] TOTAL PROTEIN S/P/B 8.3(H) 6.4 - 8.2 G/DL 09/03/2024 5:56 AM [facility] ALBUMIN S/P/B 3.0(L) 3.4 - 5.0 G/DL 09/03/2024 5:56 AM COMMERCIAL CREDIT OFFICER [facility] ANION GAP 4.7 2.0 - 10.0 MMOL/L 09/03/2024 5:56 AM [facility] OSMOLALITY (CALC) 322 MOSM/KG 025 5:56 AM [facility] Comment:REFERENCE RANGE NOT ESTABLISHED GFR ESTIMATE 40(L) >90 ML/MIN/1. 73 M2 09/03/2024 5:56 AM [facility] GFR NOTES GFR REFERENCE S: 09/03/2024 5:56 AM [facility] Comment: THE ESTIMATED GFR IS CALCULATED USING THE 2020 CKD-EPI EQUATION. THE FOLLOWING CATEGORIES FOR GRADING RENAL FUNCTION ARE RECOMMENDED BY THE INTERNATIONAL SOCIETY OF NEPHROLOGY (KDIGO 2012 CLINICAL PRACTICE GUIDELINE). G1,NORMAL OR HIGH: >89 ml/min/1.73 m2 G2,MILDLY DECREASED: 60-89 ml/min/1.73 m2 G3A,MILDLY TO MODERATELY DECREASED: 45-59 ml/min/1.73 m2 G3B,MODERATELY TO SEVERELY DECREASED: 30-44 ml/min/1.73 m2 G4,SEVERELY DECREASED: 15-29 ml/min/1.73 m2 G5,KIDNEY FAILURE: <15 ml/min/1.73 m2 09/03/2024 5:06 AM COMMERCIAL CREDIT OFFICER Zaria Mccarthy [facility] Final R esult [facility] [address] [place] [address], [phone] * (ABNORMAL) CBC W/DIFF AUTOMATED (09/03/2024 5:06 AM COMMERCIAL CREDIT OFFICER) Only the most recent of8 resultswithin the time period is included. WBC 13.49(H) 4.00 - 10.80 x10'3/uL 09/03/2024 5:28 AM [facility] RBC 4.17(L) 4.50 - 6.10 x10'6/uL 09/03/2024 5:28 AM [facility] HGB 11.9(L) 12.0 - 16.0 G/DL 09/03/2024 5:28 AM [facility] HCT 39.1 37.0 - 52.0 % 09/03/2024 5:28 AM [facility] MCV 93.8 78.0 - 100.0 FL 09/03/2024 5:28 AM [facility] MCH 28.5 27.0 - 31.0 PG 09/03/2024 5:28 AM [facility] MCHC 30.4(L) 33.0 - 36.0 G/DL 09/03/2024 5:28 AM [facility] RDW 16.1(H) 11.5 - 14.5 % 09/03/2024 5:28 AM [facility] PLT 111(L) 150 - 350 x10'3/uL 09/03/2024 5:28 AM [facility] MPV 11.9(H) 7.4 - 10.4 FL 09/03/2024 5:28 AM [facility] DIFFERENTIAL TYPE MANUAL DIFFERENTIAL 09/03/2024 7:07 AM [facility] NRBC % 0.0 % 09/03/2024 7:07 AM [facility] SEG NEUTROPHILS 78 % 7:07 AM [facility] LYMPHOCYTES 1 % 09/03/2024 7:07 AM [facility] MONOCYTES 14 % 09/03/2024 7:07 AM [facility] EOSINOPHILS 0 % 09/03/2024 7:07 AM [facility] BASOPHILS 0 % 09/03/2024 7:07 AM [facility] BANDS 6 % 09/03/2024 7:07 AM [facility] METAMYELOCYTES 1 % 09/03/2024 7:07 AM [facility] ABS. NEUTROPHILS 11.33(H) 1.60 - 8.30 x10'3/uL 09/03/2024 7:07 AM [facility] ABS. LYMPHOCYTES 0.13(L) 0.80 - 4.70 x10'3/uL 09/03/2024 7:07 AM [facility] ABS. MONOCYTES 1.89(H) 0.00 - 1.50 x10'3/uL 09/03/2024 7:07 AM [facility] ABS. EOSINOPHILS 0.00 0.00 - 0.40 x10'3/uL 09/03/2024 7:07 AM [facility] ABS. BASOPHILS 0.00 0.00 - 0.20 x10'3/uL 09/03/2024 7:07 AM [facility] ABS. METAMYELOCYTES 0.13(H) 0.00 x10'3/uL 09/03/2024 7:07 AM [facility] ABS. NUCLEATED RBC'S 0.00 0.00 - 0.01 x10'3/uL 09/03/2024 7:07 AM [facility] RBC MORPHOLOGY SLIDE REVIEWED 2024 7:07 AM [facility] ANISO SLIGHT 09/03/2024 7:07 AM [facility] POIKLO SLIGHT 09/03/2024 7:07 AM [facility] OVALOCYTES PRESENT 09/03/2024 7:07 AM [facility] PLT EST. DECREASED 09/03/2024 7:07 AM [facility] 09/03/2024 5:06 AM COMMERCIAL CREDIT OFFICER Zaria Mccarthy [facility] Final R esult [facility] [address] [place] [address], [phone] * (ABNORMAL) RENAL FUNCTION PANEL (09/02/2024 11:25 PM COMMERCIAL CREDIT OFFICER) Only the most recent of2 resultswithin the time period is included. SODIUM S/P/B 145 136 - 145 MMOL/L 09/03/2024 12:01 AM [facility] POTASSIUM S/P/B 4.1 3.5 - 5.1 MMOL/L 09/03/2024 12:01 AM [facility] CHLORIDE S/P/B 112 97 - 115 MMOL/L 09/03/2024 12:01 AM [facility] CO2 29.6 21.0 - 32.0 MMOL/L 09/03/2024 12:01 AM [facility] GLUCOSE 238(H) 74 - 106 MG/DL 09/03/2024 12:01 AM [facility] BUN 56(H) 7 - 18 MG/DL 09/03/2024 12:01 AM [facility] CREATININE S/P/B 1.90(H) 0.70 - 1.30 MG/DL 09/03/2024 12:01 AM [facility] CALCIUM S/P/B 9.3 8.5 - 10.1 MG/DL 09/03/2024 12:01 AM [facility] ALBUMIN S/P/B 2.9(L) 3.4 - 5.0 G/DL 09/03/2024 12:01 AM [facility] PHOSPHORUS 3.1 2.5 - 4.9 MG/DL 09/03/2024 12:01 AM [facility] ANION GAP 3.4 2.0 - 10.0 MMOL/L 09/03/2024 12:01 AM [facility] OSMOLALITY (CALC) 323 MOSM/KG 025 12:01 AM [facility] Comment:REFERENCE RANGE NOT ESTABLISHED GFR ESTIMATE 37(L) >90 ML/MIN/1. 73 M2 09/03/2024 12:01 AM [facility] GFR NOTES GFR REFERENCE S: 09/03/2024 12:01 AM [facility] Comment: THE ESTIMATED GFR IS CALCULATED USING THE 2020 CKD-EPI EQUATION. THE FOLLOWING CATEGORIES FOR GRADING RENAL FUNCTION ARE RECOMMENDED BY THE INTERNATIONAL SOCIETY OF NEPHROLOGY (KDIGO 2012 CLINICAL PRACTICE GUIDELINE). G1,NORMAL OR HIGH: >89 ml/min/1.73 m2 G2,MILDLY DECREASED: 60-89 ml/min/1.73 m2 G3A,MILDLY TO MODERATELY DECREASED: 45-59 ml/min/1.73 m2 G3B,MODERATELY TO SEVERELY DECREASED: 30-44 ml/min/1.73 m2 G4,SEVERELY DECREASED: 15-29 ml/min/1.73 m2 G5,KIDNEY FAILURE: <15 ml/min/1.73 m2 09/02/2024 11:2 5 PM COMMERCIAL CREDIT OFFICER Marlin Pena NP LABORATORY Final Re sult [facility] [address] [place] [address], [phone] * CULTURE, URINE (09/01/2024 11:10 AM COMMERCIAL CREDIT OFFICER) Only the most recent of2 resultswithin the time period is included. SPEC DESCRIPTION URINE CLEAN CATCH 09/01/2024 2:58 PM [facility] SPECIAL REQUESTS NO SPECIAL REQUEST 09/01/2024 2:58 PM [facility] CULTURE RESULT NO GROWTH (< OR = 1,000 CFU/ML) 09/03/2024 8:35 AM COMMERCIAL CREDIT OFFICER [facility] URINE SPECIMEN OBTAINED BY CLEAN CATCH PROCEDURE / Unknown 09/01/2024 11:10 AM COMMERCIAL CREDIT OFFICER 09/01/2024 3:11 PM COMMERCIAL CREDIT OFFICER Eduar Lindsay MD MICROBIOLOGY - GENERAL ORDER BAKARI Final Result [facility] [address] [place] [address], [phone] * XR SPEECH SWALLOW SJS ONLY (09/01/2024 9:59 AM COMMERCIAL CREDIT OFFICER) Anatomical Region Laterality Modality NA Fluoroscopy 09/01/2024 4:53 PM COMMERCIAL CREDIT OFFICER Impressions 09/01/2024 5:05 PM COMMERCIAL CREDIT OFFICER Impression: 1. Impending silent aspiration with nectar barium consistency. Bolus hold maneuver and chin tuck maneuver does not improve the swallow. 2. Impending silent aspiration with thin barium consistency. Chin tuck maneuver does not improve the swallow. 3. No evidence of laryngeal penetration or aspiration with honey barium consistency, pudding barium consistency, or cookie coated in barium. The attending radiologist has reviewed the image(s) and agrees with the content of this report. Dictated By: KESHA Munoz on 09/01/2024 4:53 PM Ordered By: EDUAR LINDSAY Interpreted By: KESHA Munoz, 09/01/2024 4:53 PM Narrative 09/01/2024 5:05 PM COMMERCIAL CREDIT OFFICER [address] [address] Date: 09/01/2024 4:54 PM Exam: Video assisted fluoroscopic swallow study. Comparison: None. Technique:Exam was performed in conjunction with speech pathology. ??Patient was placed in an upright lateral position. Pulse fluoroscopy time of 2.5 minutes. Radiation dose was K AR = 15.7mGy. ??The patient was evaluated swallowing honey barium consistency via spoon, straw, and open cup, nectar barium consistency via spoon, straw, and open cup, pudding barium consistency via spoon, and thin barium consistency via cup and straw. The patient was evaluated swallowing a cookie coated in barium followed by nectar barium consistency via open cup. The patient was evaluated swallowing a cookie coated in barium followed by honey barium consistency via spoon. Neutral, bolus hold, and chin tuck maneuvers were performed. ?? History: Dysphasia. Findings: Honey barium consistency via spoon demonstrated premature spillage to the vallecula before initiation of the swallow. No evidence of laryngeal penetration. No evidence of aspiration. A second swallow of honey barium consistency via spoon demonstrated premature spillage to the vallecula before initiation of swallow. No evidence of laryngeal penetration. No evidence of aspiration. Honey barium consistency via straw demonstrated premature spillage to the vallecula before initiation of swallow. No evidence of laryngeal penetration. No evidence of aspiration. Honey barium consistency via open cup demonstrated premature spillage to the vallecula and piriform sinuses before initiation of swallow. No evidence of laryngeal penetration. No evidence of aspiration. [place] barium consistency via spoon demonstrated premature spillage to the vallecula before initiation of swallow. No evidence of laryngeal penetration. No evidence of aspiration. [place] barium consistency via straw demonstrated premature spillage to the vallecula and piriform sinuses before initiation of swallow. No evidence of laryngeal penetration. No evidence of aspiration. A second swallow of nectar barium consistency via straw demonstrated premature spillage to the vallecula and piriform sinuses before initiation of the swallow. Laryngeal penetration without complete ejection was visualized as seen in series 5 image 35 through 53. A cough reflex was not elicited. This is consistent with impending silent aspiration. [place] barium consistency via open cup demonstrated premature spillage to the vallecula and piriform sinuses before initiation of swallow. No evidence of laryngeal penetration. No evidence of aspiration. [place] barium consistency via straw with a bolus hold maneuver demonstrated premature spillage to the vallecula and piriform sinuses before initiation of swallow. Laryngeal penetration without ejection was visualized as seen in series 14 image 14 through 35. A cough reflex was not elicited. This is consistent with impending silent aspiration. Pudding barium consistency via spoon demonstrated premature spillage to the vallecula before initiation of swallow. No evidence of laryngeal penetration. No evidence of aspiration. A second swallow pudding barium considered via spoon demonstrated premature spillage to the vallecula before initiation of swallow. No evidence of laryngeal penetration. No evidence of aspiration. Thin barium consistency via open cup demonstrated premature spillage to the vallecula and piriform sinuses before initiation of the swallow. Deep laryngeal penetration without ejection was visualized as seen in series 9 image 14 through 65. A cough reflex was not elicited. This is consistent with impending silent aspiration. Thin barium consistency via straw with a chin tuck maneuver demonstrated premature spillage to the vallecula and piriform sinuses before initiation of the swallow. Laryngeal penetration without ejection was visualized as seen in series 10 image 35 through 79. A cough reflex was not elicited. This is consistent with impending silent aspiration. A second swallow of thin barium consistency via straw with a chin tuck maneuver demonstrated premature spillage to the vallecula and piriform sinuses before initiation of swallow. Laryngeal penetration without ejection was visualized as seen in series 11 image 29 through 56. A cough reflex was not elicited. This is consistent with impending silent aspiration. ?? A cookie coated in barium followed by nectar barium consistency via open cup demonstrated premature spillage to the vallecula before initiation of swallow with a cookie coated in barium. Premature spillage to the vallecula and piriform sinuses before initiation of swallow with nectar barium consistency via open cup. Laryngeal penetration without ejection was visualized as seen in series 13 image 58 through 223 with nectar barium consistency via open cup. A cough reflex was not elicited. This is consistent with impending silent aspiration. A cookie coated in barium followed by honey barium consistency via spoon demonstrated premature spillage to the vallecula before initiation of swallow with a cookie coated in barium. Premature spillage to the vallecula before initiation of the swallow with honey barium consistency via spoon. No evidence of laryngeal penetration or aspiration with a cookie coated in barium or honey barium consistency via spoon. Procedure Note Victorino Dowd MD - 09/01/[address] [address] Date: 09/01/2024 4:54 PM Exam: Video assisted fluoroscopic swallow study. Comparison: None. Technique:Exam was performed in conjunction with speech pathology.Patient was placed in an upright lateral position. Pulse fluoroscopy timeof 2.5 minutes. Radiation dose was K AR = 15.7mGy. The patient wasevaluated swallowing honey barium consistency via spoon, straw, and opencup, nectar barium consistency via spoon, straw, and open cup, puddingbarium consistency via spoon, and thin barium consistency via cup andstraw. The patient was evaluated swallowing a cookie coated in bariumfollowed by nectar barium consistency via open cup. The patient wasevaluated swallowing a cookie coated in barium followed by honey bariumconsistency via spoon. Neutral, bolus hold, and chin tuck maneuvers wereperformed. History: Dysphasia. Findings: Honey barium consistency via spoon demonstrated premature spillage to thevallecula before initiation of the swallow. No evidence of laryngealpenetration. No evidence of aspiration. A second swallow of honey bariumconsistency via spoon demonstrated premature spillage to the valleculabefore initiation of swallow. No evidence of laryngeal penetration. Noevidence of aspiration. [place] barium consistency via straw demonstratedpremature spillage to the vallecula before initiation of swallow. Noevidence of laryngeal penetration. No evidence of aspiration. Honey bariumconsistency via open cup demonstrated premature spillage to the valleculaand piriform sinuses before initiation of swallow. No evidence oflaryngeal penetration. No evidence of aspiration. [place] barium consistency via spoon demonstrated premature spillage to thevallecula before initiation of swallow. No evidence of laryngealpenetration. No evidence of aspiration. [place] barium consistency viastraw demonstrated premature spillage to the vallecula and piriformsinuses before initiation of swallow. No evidence of laryngealpenetration. No evidence of aspiration. A second swallow of nectar bariumconsistency via straw demonstrated premature spillage to the vallecula andpiriform sinuses before initiation of the swallow. Laryngeal penetrationwithout complete ejection was visualized as seen in series 5 image 35through 53. A cough reflex was not elicited. This is consistent withimpending silent aspiration. [place] barium consistency via open cupdemonstrated premature spillage to the vallecula and piriform sinusesbefore initiation of swallow. No evidence of laryngeal penetration. Noevidence of aspiration. [place] barium consistency via straw with a bolushold maneuver demonstrated premature spillage to the vallecula andpiriform sinuses before initiation of swallow. Laryngeal penetrationwithout ejection was visualized as seen in series 14 image 14 through 35.A cough reflex was not elicited. This is consistent with impending silentaspiration. Pudding barium consistency via spoon demonstrated premature spillage tothe vallecula before initiation of swallow. No evidence of laryngealpenetration. No evidence of aspiration. A second swallow pudding bariumconsidered via spoon demonstrated premature spillage to the valleculabefore initiation of swallow. No evidence of laryngeal penetration. Noevidence of aspiration. Thin barium consistency via open cup demonstrated premature spillage tothe vallecula and piriform sinuses before initiation of the swallow. Deeplaryngeal penetration without ejection was visualized as seen in series 9image 14 through 65. A cough reflex was not elicited. This is consistentwith impending silent aspiration. Thin barium consistency via straw with achin tuck maneuver demonstrated premature spillage to the vallecula andpiriform sinuses before initiation of the swallow. Laryngeal penetrationwithout ejection was visualized as seen in series 10 image 35 through 79.A cough reflex was not elicited. This is consistent with impending silentaspiration. A second swallow of thin barium consistency via straw with achin tuck maneuver demonstrated premature spillage to the vallecula andpiriform sinuses before initiation of swallow. Laryngeal penetrationwithout ejection was visualized as seen in series 11 image 29 through 56.A cough reflex was not elicited. This is consistent with impending silentaspiration. A cookie coated in barium followed by nectar barium consistency via opencup demonstrated premature spillage to the vallecula before initiation ofswallow with a cookie coated in barium. Premature spillage to thevallecula and piriform sinuses before initiation of swallow with nectarbarium consistency via open cup. Laryngeal penetration without ejectionwas visualized as seen in series 13 image 58 through 223 with nectarbarium consistency via open cup. A cough reflex was not elicited. This isconsistent with impending silent aspiration. A cookie coated in barium followed by honey barium consistency via spoondemonstrated premature spillage to the vallecula before initiation ofswallow with a cookie coated in barium. Premature spillage to thevallecula before initiation of the swallow with honey barium consistencyvia spoon. No evidence of laryngeal penetration or aspiration with acookie coated in barium or honey barium consistency via spoon. Impression: 1. Impending silent aspiration with nectar barium consistency. Bolus holdmaneuver and chin tuck maneuver does not improve the swallow. 2. Impending silent aspiration with thin barium consistency. Chin tuckmaneuver does not improve the swallow. 3. No evidence of laryngeal penetration or aspiration with honey bariumconsistency, pudding barium consistency, or cookie coated in barium. The attending radiologist has reviewed the image(s) and agrees with thecontent of this report. Dictated By: KESHA Munoz on 09/01/2024 4:53 PM Ordered By: EDUAR LINDSAY Interpreted By: KESHA Munoz, 09/01/2024 4:53 PM Eduar Lindsay MD FLUOROSCOPY Final Result * (ABNORMAL) HEMOGLOBIN, GLYCATED (09/01/2024 8:19 AM COMMERCIAL CREDIT OFFICER) HGB A1C 7.0(H) <5.7 % 09/01/2024 9:13 AM COMMERCIAL CREDIT OFFICER [facility] ESTIMATED AVG GLUCOSE 154(H) 74 - 114 MG/DL 09/01/2024 9:13 AM COMMERCIAL CREDIT OFFICER [facility] 09/01/2024 8:19 AM COMMERCIAL CREDIT OFFICER Zaria Mccarthy [facility] Final R esult [facility] [address] [place] [address], [phone] * THYROID STIM HORMONE, TSH (09/01/2024 8:19 AM COMMERCIAL CREDIT OFFICER) TSH 2.000 0.358 - 3.740 uIU/ML 09/01/2024 9:11 AM COMMERCIAL CREDIT OFFICER [facility] Comment: ASSAY PERFORMED BY CHEMILUMINESCENCE METHODOLOGY USING [employer]. PATIENT RESULTS DETERMINED BY ASSAYS USING DIFFERENT MANUFACTURERS FOR METHODS MAY NOT BE COMPARABLE. 09/01/2024 8:19 AM COMMERCIAL CREDIT OFFICER Zaria R Shari [facility] Final R esult [facility] [address] [place] [address], [phone] * MAGNESIUM (09/01/2024 8:19 AM COMMERCIAL CREDIT OFFICER) Only the most recent of2 resultswithin the time period is included. MAGNESIUM 2.5 1.6 - 2.6 MG/DL 09/01/2024 9:11 AM COMMERCIAL CREDIT OFFICER [facility] 09/01/2024 8:19 AM COMMERCIAL CREDIT OFFICER [facility] Florentino BarbaShari [facility] Final R esult Performing Organization Address [facility] de Phone Number [facility] [address] [place] [address], [phone] * US RETROPERITONEAL LTD (08/31/2024 10:20 PM COMMERCIAL CREDIT OFFICER) Anatomical Region Laterality Modality Renal Ultrasound 09/01/2024 2:04 AM COMMERCIAL CREDIT OFFICER Impressions 09/01/2024 2:06 AM COMMERCIAL CREDIT OFFICER IMPRESSION: 1. ??No right-sided hydronephrosis. 2. ??Nonvisualized left kidney and suboptimally visualized right kidney. 3. ??Decompressed urinary bladder with Oneill catheter. Referred By: PROVIDER NON-STAFF Interpreted By: Ever Love MD, 09/01/2024 2:04 AM Narrative 09/01/2024 2:06 AM COMMERCIAL CREDIT OFFICER [address] [address] EXAMINATION: Renal ultrasound EXAM DATE/TIME: 08/31/2024 10:03 PM REASON FOR EXAM: ??ALICIA COMPARISON: CT abdomen pelvis 11/17/2023, renal ultrasound 08/06/2023 TECHNIQUE: Transabdominal ultrasound evaluation of the bilateral kidneys and bladder was performed for analysis of grayscale and color Doppler imaging characteristics. FINDINGS: The right kidney measures 11.6 cm in length, overall suboptimally visualized. The left kidney is not seen. No right-sided hydronephrosis. ??No definite right-sided focal renal lesion. ??Echogenicity of the right kidney is within normal limits. The urinary bladder is decompressed with Oneill catheter. ?? Procedure Note Ever Love MD - 09/01/2024 [place] [id number] EXAMINATION: Renal ultrasound EXAM DATE/TIME: 08/31/2024 10:03 PM REASON FOR EXAM: ALICIA COMPARISON: CT abdomen pelvis 11/17/2023, renal ultrasound 08/06/2023 TECHNIQUE: Transabdominal ultrasound evaluation of the bilateral kidneysand bladder was performed for analysis of grayscale and color Dopplerimaging characteristics. FINDINGS: The right kidney measures 11.6 cm in length, overall suboptimallyvisualized. The left kidney is not seen. No right-sided hydronephrosis. No definite right-sided focal renallesion. Echogenicity of the right kidney is within normal limits. The urinary bladder is decompressed with Oneill catheter. IMPRESSION: 1. No right-sided hydronephrosis. 2. Nonvisualized left kidney and suboptimally visualized right kidney. 3. Decompressed urinary bladder with Oneill catheter. Referred By: PROVIDER NON-STAFF Interpreted By: Ever Love MD, 09/01/2024 2:04 AM Ludy Romero MD ULTRASOUND Final Result * SODIUM URINE RANDOM (08/31/2024 5:12 PM COMMERCIAL CREDIT OFFICER) NA RANDOM (U) 88 MMOL/L 08/31/2024 5:38 PM COMMERCIAL CREDIT OFFICER [facility] Comment:REFERENCE RANGE NOT ESTABLISHED URINE SPECIMEN / Unknown 08/31/2024 5:12 PM COMMERCIAL CREDIT OFFICER Ludy Romero MD URINE ORDERABLES Final Result Performing Organization Address City/[facility]/ZIP Co de Phone Number [facility] [address] [place] [address], [place] [phone] * CREATININE URINE RANDOM (08/31/2024 5:12 PM COMMERCIAL CREDIT OFFICER) CREATININE (U) 33.5 MG/DL 08/31/2024 5:38 PM COMMERCIAL CREDIT OFFICER [facility] Comment:REFERENCE RANGE NOT ESTABLISHED URINE SPECIMEN / Unknown 08/31/2024 5:12 PM COMMERCIAL CREDIT OFFICER Ludy Romero MD URINE ORDERABLES Final Result Performing Organization Address [facility] de Phone Number [facility] [address] [place] [address], [place] [phone] * (ABNORMAL) URINALYSIS (08/31/2024 5:12 PM COMMERCIAL CREDIT OFFICER) Only the most recent of2 resultswithin the time period is included. COLOR (U) LIGHT BROWN 08/31/2024 5:34 PM [facility] TRANSPARENCY SLIGHTLY CLOUDY 08/31/2024 5:34 PM [facility] SPECIFIC GRAVITY (U) 1.009 1.002 - 1.035 08/31/2024 5:34 PM COMMERCIAL CREDIT OFFICER [facility] U PH 5.0 5 - 8 08/31/2024 5:34 PM [facility] PROTEIN RANDOM (U) 10(A) NEGATIVE 08/31/2024 5:34 PM [facility] GLUCOSE (U) 30(A) NEGATIVE MG/DL 08/31/2024 5:34 PM [facility] KETONES MG/DL (U) NEGATIVE NEGATIVE 08/31/2024 5:34 PM [facility] BILIRUBIN (U) NEGATIVE NEGATIVE 08/31/2024 5:34 PM COMMERCIAL CREDIT OFFICER [facility] BLOOD (U) 3+(A) NEGATIVE 08/31/2024 5:34 PM COMMERCIAL CREDIT OFFICER [facility] NITRITES NEGATIVE NEGATIVE 08/31/2024 5:34 PM COMMERCIAL CREDIT OFFICER [facility] UROBILINOGEN NORMAL 0 - 1 EU/DL 08/31/2024 5:34 PM COMMERCIAL CREDIT OFFICER [facility] LEUKOCYTES (U) 1+(A) NEGATIVE 08/31/2024 5:34 PM COMMERCIAL CREDIT OFFICER [facility] RBC/HPF >182(H) 0 - 3 /HPF 08/31/2024 5:34 PM COMMERCIAL CREDIT OFFICER [facility] Comment:PLEASE CALL THE LAB WITHIN 2 HOURS IF ACTUAL NUMBER OF CELLS IS REQUIRED. WBC/HPF 27(H) 0 - 6 /HPF 08/31/2024 5:34 PM COMMERCIAL CREDIT OFFICER [facility] BACTERIA (U) PRESENT /HPF 08/31/2024 5:34 PM COMMERCIAL CREDIT OFFICER [facility] SQUAMOUS EPITHELIALS <1 08/31/2024 5:34 PM COMMERCIAL CREDIT OFFICER [facility] WBC CLUMPS PRESENT 08/31/2024 5:34 PM COMMERCIAL CREDIT OFFICER [facility] HYALINE CASTS 28 08/31/2024 5:34 PM COMMERCIAL CREDIT OFFICER [facility] URINE SPECIMEN / Unknown 08/31/2024 5:12 PM COMMERCIAL CREDIT OFFICER us Ludy Romero MD URINE ORDERABLES Final Result [facility] [address] [place] [address], [id number] * USE ECHOCARDIOGRAM W CON (08/31/2024 2:02 PM COMMERCIAL CREDIT OFFICER) Anatomical Region Laterality Modality NA Echocardiogram 08/31/2024 1:13 PM COMMERCIAL CREDIT OFFICER Narrative 08/31/2024 11:02 PM COMMERCIAL CREDIT OFFICER ?Echocardiography Report Pat.Name: ??OBIE SIMS ?Pat.ID: ?[id number] ? St.Date: ?? 08/31/2024 ? Refer.MD: ??[id number] NON-STAFF PROVIDER ?EWDPROV ?EWDPROV Exam Time: 1:13:00 PM ?Study Type:ECHO W/CONTRAST COMPLETE Height: ?168 cm ?Weight: ?110 kg ? BSA: ? 2.17 m2 ?Age: ??1955,69Y ? Sex: ? M ? BP: ?117/53 ? HR: ?84 bpm ?Sonogrphr: Kastl, Jose Cruz RDCS ? Pat. Stat.:Inpatient ? Room: ?622 ? CPT - 4: ?C8929 ? Reason for Study:Congestive heart failure Procedures: 2D, M-mode, Doppler, Color Flow, Definity was used to enhance endocardial definition. Race: ?W ? ++++++++++++++++++++++++++++++++++++ SUMMARY: ++++++++++++++++++++++++++++++++++++ Technically difficult study. The left ventricular size is mildly enlarged. The calculated ejection fraction is 43%. The right ventricular size is moderately to severely enlarged. Right ventricular systolic function is severely depressed. Right ventricular systolic pressure is 36 mmHg + estimated RAP. No evidence of pericardial effusion. Moderate aortic valve stenosis. Mild tricuspid regurgitation. ++++++++++++++++++++++++++++++++++++ FINDINGS: ++++++++++++++++++++++++++++++++++++ LV: ? The left ventricular size is mildly enlarged. The left ?ventricular systolic function is mild to moderately ?depressed. The calculated ejection fraction is 43%. No ?concentric left ventricular hypertrophy. Left ventricular ?diastolic function is not reliably assessed. RV: ? The right ventricular size is moderately to severely ?enlarged. Right ventricular systolic function is severely ?depressed. Right ventricular systolic pressure is 36 mmHg + ?estimated RAP. LA: ? The left atrial volume is moderately increased (42-48 ?ml/M2). RA: ? Right atrial size is moderately enlarged. ANYA: ? No evidence of pericardial effusion. SVn: ?Inferior vena cava is not assessable. Other: ?Technically difficult exam due to body habitus. AV: ? The aortic valve is trileaflet. Moderate aortic valve ?stenosis. The peak velocity across the aortic valve measures ?3.05m/sec with a peak gradient of 37mmHg and a mean gradient ?of 23mmHg. The calculated aortic valve area is 1.1cm2. No ?evidence of aortic valve regurgitation. Mild thickening of ?aortic valve leaflets. Dimensionless index of 0.3. MV: ? No evidence of mitral regurgitation. No evidence of mitral ?stenosis. Mild thickening of mitral valve leaflets. PV: ? No evidence of pulmonic valve stenosis. No evidence of ?pulmonic regurgitation. TV: ? Mild tricuspid regurgitation. No evidence of tricuspid valve ?stenosis. ++++++++++++++++++++++++++++++++++++ MEASUREMENTS: ++++++++++++++++++++++++++++++++++++ ?DOPPLER LVOT ?? LVOTpkPG ? 4 mmHg ?LVOTmnPG ? 2 mmHg LVOTpkVel ? 96.4 cm/s (70-110)+ LVOT SV ? 65 ml ?? LVOT TVI ?17.3 cm ? AV Forward Flow AV TVI ?60.8 cm ?AV pkPG ? 37 mmHg AV pkVel ? 305 cm/s (100-170)+* Area (TVI) ?1.07 cm2 ??(3-5)* AV mnVel ? 231 cm/s ?Area (Wilbert) ?1.19 cm2 ??(3-5)* AV mnPG ? 23 mmHg ? MV Forward Flow MV DeTm ?153 msec ?MV pkE ? 116 cm/s (60- 130) TV Regurg Flow TV pkPG ? 36 mmHg ?TV pkVel ? 300 cm/s (30- 70)* Lat E' ?? Lat e ? 6.85 cm/s ? Lat E/E' ?? Lat E/e ? 16.9 ? Med E' ?? Med e ? 3.92 cm/s ? Med E/E' ?? Med E/e ? 29.6 ? Aortic Valve ?? Aortic Valve Ar ??0.49 ?Aortic Valve Ve ??0.32 ? AV DI ?? Value ?0.3 ? EMILE (VTI) Index ?? Value ? 0.49 ? LV Mass 2D ?? Value ?223 g ? LV Mass Xvpag1D ?? Value ?103 g/m2 ? RA Volume ?? Atrial Schaffer ?? 6.38 cm ? Atrial Schaffer ?? 24.8 cm2 Atrial Schaffer ?? 77.9 ml ?2D Left Ventricle ?? LVIDd ? 5.45 cm ?? (3.6-5.2)* LV EF(Bi-Plane) ??43.3 % ?(63-77)* LVIDs ? 4.49 cm ?? (2.3-3.9)* LVPW ?? LVPWd ? 1.01 cm ? Ventricular Septum ?? IVSd ?1.08 cm ? Left Atrium ?? LA a-p ?5.17 cm ?? (2.8-3.4)* Aorta ?? Ao Asc ?2.92 cm ?? (zsc 1) LVOT ?? LVOT ?2.19 cm ? Ratios ?? IVS LA Biplane LAVol I BP ?47 ml/m2 ? Right Ventricle ?? Right Ventricle ??5.62 cm ? Right Ventricul ??28.3 cm2 Right Ventricul ??34.9 cm2 ?Right Ventricul ??18.9 % ?MMODE Aorta ?? Ao Rt ?2.8 cm ?? (2-3.7) ?? <Electronic Signature> 08/31/2024 11:02 PM Brit Gonzáles M.D. Procedure Note Brit Gonzáles MD - 08/31/2024 Echocardiography Report Pat.Name: OBIE SIMS Pat.ID: [id number] .Date: 08/31/2024 Refer.: [id number] NON-STAFF PROVIDER EWDPROV EWDPROV Exam Time: 1:13:00 PM Study Type:ECHO W/CONTRAST COMPLETE Height: 168 cm Weight: 110 kg BSA: 2.17 m2 Age: 11 1955,69Y Sex: M BP: 117/53 HR: 84 bpm Sonogrphr: Jose Cruz Tejada [facility] Pat. Stat.:Inpatient Room: 622 CPT - 4: C8929 Reason for Study:Congestive heart failure Procedures: 2D, M-mode, Doppler, Color Flow, Definity was used to enhance endocardial definition. Race: W ++++++++++++++++++++++++++++++++++++ SUMMARY: ++++++++++++++++++++++++++++++++++++ Technically difficult study. The left ventricular size is mildly enlarged. The calculated ejection fraction is 43%. The right ventricular size is moderately to severely enlarged. Right ventricular systolic function is severely depressed. Right ventricular systolic pressure is 36 mmHg + estimated RAP. No evidence of pericardial effusion. Moderate aortic valve stenosis. Mild tricuspid regurgitation. ++++++++++++++++++++++++++++++++++++ FINDINGS: ++++++++++++++++++++++++++++++++++++ LV: The left ventricular size is mildly enlarged. The left ventricular systolic function is mild to moderately depressed. The calculated ejection fraction is 43%. No concentric left ventricular hypertrophy. Left ventricular diastolic function is not reliably assessed. RV: The right ventricular size is moderately to severely enlarged. Right ventricular systolic function is severely depressed. Right ventricular systolic pressure is 36 mmHg + estimated RAP. LA: The left atrial volume is moderately increased (42-48 ml/M2). RA: Right atrial size is moderately enlarged. ANYA: No evidence of pericardial effusion. SVn: Inferior vena cava is not assessable. Other: Technically difficult exam due to body habitus. AV: The aortic valve is trileaflet. Moderate aortic valve stenosis. The peak velocity across the aortic valve measures 3.05m/sec with a peak gradient of 37mmHg and a mean gradient of 23mmHg. The calculated aortic valve area is 1.1cm2. No evidence of aortic valve regurgitation. Mild thickening of aortic valve leaflets. Dimensionless index of 0.3. MV: No evidence of mitral regurgitation. No evidence of mitral stenosis. Mild thickening of mitral valve leaflets. PV: No evidence of pulmonic valve stenosis. No evidence of pulmonic regurgitation. TV: Mild tricuspid regurgitation. No evidence of tricuspid valve stenosis. ++++++++++++++++++++++++++++++++++++ MEASUREMENTS: ++++++++++++++++++++++++++++++++++++ DOPPLER LVOT LVOTpkPG 4 mmHg LVOTmnPG 2 mmHg LVOTpkVel 96.4 cm/s (70-110)+ LVOT SV 65 ml LVOT TVI 17.3 cm AV Forward Flow AV TVI 60.8 cm AV pkPG 37 mmHg AV pkVel 305 cm/s (100-170)+* Area (TVI) 1.07 cm2 (3-5)* AV mnVel 231 cm/s Area (Wilbert) 1.19 cm2 (3-5)* AV mnPG 23 mmHg MV Forward Flow MV DeTm 153 msec MV pkE 116 cm/s (60-130) TV Regurg Flow TV pkPG 36 mmHg TV pkVel 300 cm/s (30-70)* Lat E' Lat e 6.85 cm/s Lat E/E' Lat E/e 16.9 Med E' Med e 3.92 cm/s Med E/E' Med E/e 29.6 Aortic Valve Aortic Valve Ar 0.49 Aortic Valve Ve 0.32 AV DI Value 0.3 EMILE (VTI) Index Value 0.49 LV Mass 2D Value 223 g LV Mass Htuez2T Value 103 g/m2 RA Volume Atrial Schaffer 6.38 cm Atrial Schaffer 24.8 cm2 Atrial Schaffer 77.9 ml 2D Left Ventricle LVIDd 5.45 cm (3.6-5.2)* LV EF(Bi-Plane) 43.3 % (63-77)* LVIDs 4.49 cm (2.3-3.9)* LVPW LVPWd 1.01 cm Ventricular Septum IVSd 1.08 cm Left Atrium LA a-p 5.17 cm (2.8-3.4)* Aorta Ao Asc 2.92 cm (zsc 1) LVOT LVOT 2.19 cm Ratios IVS LA Biplane LAVol I BP 47 ml/m2 Right Ventricle Right Ventricle 5.62 cm Right Ventricul 28.3 cm2 Right Ventricul 34.9 cm2 Right Ventricul 18.9 % MMODE Aorta Ao Rt 2.8 cm (2-3.7) <Electronic Signature> 08/31/2024 11:02 PM Brit Gonzáles M.D. Zaria Mccarthy [facility]- ECHO Final R esult * ECG 12 lead (08/31/2024 12:13 PM COMMERCIAL CREDIT OFFICER) Only the most recent of2 resultswithin the time period is included. 08/31/2024 12:1 3 PM COMMERCIAL CREDIT OFFICER Narrative [facility] - 09/01/2024 2:20 PM COMMERCIAL CREDIT OFFICER ? [facility] ?[address] [place], [place] ??[address] ? Test Date: ?2024-08-31 Pat Name: ? OBIE BELLHAN ?Department: ?? 1 ? Room: ? 622AA Gender: ? Male ? 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 Sc : ?1955 ? Requested By: ZARIA MCCARTHY Order Number: [id number] ? Reading MD: ?? Domingo Parks ? Measurements Intervals ?[place] ? Rate: ? 80 ? P: ? [place]: ? 0 ?QRS: ?-32 QRSD: ? 147 ?T: ?128 QT: ? 379 ? QTc: ?439 ? 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 * (ABNORMAL) PRO-BRAIN NATRIURETIC PEPTIDE (PRO BNP) (08/31/2024 10:35 AM COMMERCIAL CREDIT OFFICER) Only the most recent of2 resultswithin the time period is included. PRO-B TYPE NATRIURETIC PEPTIDE 8,481(H) <125 PG/ML 08/31/2024 11:09 AM COMMERCIAL CREDIT OFFICER [facility] Comment: AGE INDEPENDENT: <300 PG/ML HAS A 99% NEGATIVE PREDICTIVE VALUE FOR EXCLUDING ACUTE CHF <50 YEARS: >450 PG/ML IS CONSISTENT WITH ACUTE CHF 50-75 YEARS: >900 PG/ML IS CONSISTENT WITH ACUTE CHF >75 YEARS: >1800 PG/ML IS CONSISTENT WITH ACUTE CHF IN PATIENTS WITH RENAL INSUFFICIENCY (GFR <60), >1200 PG/ML YIELDS A DIAGNOSTIC SENSITIVITY AND SPECIFICITY OF 89% AND 72% FOR ACUTE CHF. 08/31/2024 10:3 5 AM COMMERCIAL CREDIT OFFICER us Eduar Lindsay MD LABORATORY Final Result Performing Organization Address City/[facility]/ZIP Co de Phone Number [facility] [address] [place] [address], [id number] * CK (CPK) (08/31/2024 10:35 AM COMMERCIAL CREDIT OFFICER) CPK 154 39 - 308 U/L 08/31/2024 5:11 PM COMMERCIAL CREDIT OFFICER [facility] 08/31/2024 10:3 5 AM COMMERCIAL CREDIT OFFICER us Ludy Romero MD LABORATORY Final Result Performing Organization Address [facility] Co de Phone Number [facility] [address] [place] [address], [place] [phone] * (ABNORMAL) BASIC METABOLIC PANEL (08/01/2024 5:24 AM COMMERCIAL CREDIT OFFICER) SODIUM S/P/B 137 136 - 145 MMOL/L 08/01/2024 6:32 AM COMMERCIAL CREDIT OFFICER [facility] POTASSIUM S/P/B 4.6 3.5 - 5.1 MMOL/L 08/01/2024 6:32 AM COMMERCIAL CREDIT OFFICER [facility] CHLORIDE S/P/B 103 98 - 107 MMOL/L 08/01/2024 6:32 AM COMMERCIAL CREDIT OFFICER [facility] CO2 27.2 21.0 - 32.0 MMOL/L 08/01/2024 6:32 AM [facility] GLUCOSE 48(LL) 70 - 99 MG/DL 08/01/2024 6:32 AM [facility] Comment: Critical Result(s) Called to and read back by: STEPHEN TRUJILLO ?? at: 06:31:27 ?? 08/01/2024 by ETCR. FASTING GLUCOSE 100 TO 125 MG/DL IS CONSISTENT WITH IMPAIRED FASTING GLUCOSE. FASTING GLUCOSE >125 MG/DL IS CONSISTENT WITH DIABETES. RANDOM GLUCOSE >200 MG/DL WITH HYPERGLYCEMIC SYMPTOMS IS CONSISTENT WITH DIABETES. PER ADA GUIDELINES BUN 51(H) 6 - 24 MG/DL 08/01/2024 6:32 AM [facility] CREATININE S/P/B 1.72(H) 0.70 - 1.30 MG/DL 08/01/2024 6:32 AM [facility] CALCIUM S/P/B 8.7 8.4 - 10.5 MG/DL 08/01/2024 6:32 AM [facility] ANION GAP 6.8 5.0 - 15.0 MMOL/L 08/01/2024 6:32 AM [facility] OSMOLALITY (CALC) 295 MOSM/KG 024 6:32 AM [facility] Comment:REFERENCE RANGE NOT ESTABLISHED GFR ESTIMATE 42(L) >89 ML/MIN/1. 73 M2 08/01/2024 6:32 AM [facility] GFR NOTES GFR REFERENCE S: 08/01/2024 6:32 AM [facility] Comment: THE ESTIMATED GFR IS CALCULATED USING THE 2020 CKD-EPI EQUATION. THE FOLLOWING CATEGORIES FOR GRADING RENAL FUNCTION ARE RECOMMENDED BY THE INTERNATIONAL SOCIETY OF NEPHROLOGY (KDIGO 2012 CLINICAL PRACTICE GUIDELINE). G1,NORMAL OR HIGH: >89 ml/min/1.73 m2 G2,MILDLY DECREASED: 60-89 ml/min/1.73 m2 G3A,MILDLY TO MODERATELY DECREASED: 45-59 ml/min/1.73 m2 G3B,MODERATELY TO SEVERELY DECREASED: 30-44 ml/min/1.73 m2 G4,SEVERELY DECREASED: 15-29 ml/min/1.73 m2 G5,KIDNEY FAILURE: <15 ml/min/1.73 m2 08/01/2024 5:24 AM COMMERCIAL CREDIT OFFICER us Jena Schilling MD LABORATORY Final Resul t Performing Organization Address [facility]/ZIP Co de Phone Number [facility] [address] [place] [address], [place] [phone] * BLOOD CULTURE #1 (07/31/2024 3:43 PM COMMERCIAL CREDIT OFFICER) SPEC DESCRIPTION BLOOD 07/31/2024 3:30 PM COMMERCIAL CREDIT OFFICER [facility] SPECIAL REQUESTS NO SPECIAL REQUEST 07/31/2024 3:30 PM COMMERCIAL CREDIT OFFICER [facility] CULTURE RESULT NO GROWTH 5 DAYS 2024 10:57 AM COMMERCIAL CREDIT OFFICER [facility] BLOOD SPECIMEN OBTAINED FOR BLOOD CULTURE / Unknown 07/31/2024 3:43 PM COMMERCIAL CREDIT OFFICER 07/31/2024 3:47 PM COMMERCIAL CREDIT OFFICER us Jena Schilling MD MICROBIOLOGY - [facility] Final Result Performing Organization Address [facility]/[place] [address], [place] [phone] * LACTIC ACID W REFLEX (SEPSIS) (07/31/2024 3:36 PM COMMERCIAL CREDIT OFFICER) LACTIC ACID VENOUS 0.4 0.4 - 2.0 MMOL/L 07/31/2024 4:08 PM COMMERCIAL CREDIT OFFICER [facility] 07/31/2024 3:36 PM COMMERCIAL CREDIT OFFICER us Jena Schilling MD LABORATORY Final Resul t Performing Organization Address [facility]/ZIP Co de Phone Number [facility] [address] [address], [place] [phone] * TROPONIN, QUANT (07/31/2024 3:36 PM COMMERCIAL CREDIT OFFICER) TROPONIN I HIGH SENSITIVITY 48 0 - 76 ng/L 07/31/2024 4:08 PM COMMERCIAL CREDIT OFFICER [facility] 07/31/2024 3:36 PM COMMERCIAL CREDIT OFFICER us Jena Schilling MD LABORATORY Final Resul t [facility] [address] [place] [address], * CT ABD+PEL WO CON (11/17/2023 3:08 PM CDT) Anatomical Region Laterality Modality Abdomen Computed Tomogra phy 11/17/2023 4:16 PM CDT Impressions 11/17/2023 4:31 PM CDT IMPRESSION: 1. ??Fatty liver. 2. ??Enlarged spleen 3. ??Unchanged right adrenal mass. 4. ??Moderate/large stool volume. 5. ??No urinary tract obstruction. Referred By: MEGAN INFANTE Interpreted By: David Alcantara MD, 11/17/2023 4:16 PM Narrative 11/17/2023 4:31 PM CDT EXAM: CT ABD+PEL WO CON DATE: 11/17/2023 COMPARISON: 07/14/2023 INDICATION: Right-sided flank pain for a few weeks. TECHNIQUE: Noncontrast imaging A dose lowering technique was used for this procedure, which may include, but is not limited to, dose reduction technique, automated exposure control, iterative reconstruction, ALARA (As Low As Reasonably Achievable), or Image Gently techniques. FINDINGS: Multiple pulmonary granulomas. ??Aortic valve replacement. ??Extensive and diffuse arterial calcifications. ??No aneurysm of the aorta. ??Possible left renal artery origin stenosis. ??STEPHIE stenosis. Diffuse fatty infiltration of an normal size liver. ??The spleen is enlarged with homogeneous noncontrast density. ??Low density right adrenal mass is unchanged dimensions. ??Density measurements are quite variable between 5 and 25 Hounsfield units. ??Findings likely represent a rather large and relatively lipid poor adenoma. Calcified dependent gallstones with no right upper quadrant inflammation. No urinary tract calcifications or obstruction. ??Small calcification in the renal capsule region inferiorly on the right side is unchanged. ??Unchanged renal cysts. ??Tiny indeterminate nodule along the lateral margin of the left kidney measures about 5 mm. ??This is smaller than previously. ??Normal urinary bladder. ??Small fat-containing umbilical hernia. ??Moderate to large stool volume through the majority of the large bowel. ??Some of this fecal density material is also within the terminal ileum. ??No point of obstruction. ??Probable stasis or valvular reflux. ??The appendix is not visualized. ??No right lower quadrant inflammation. Diffuse thoracolumbar degenerative disc disease with multilevel lumbar spinal stenosis. Procedure Note David Alcantara MD - 11/17/2023 EXAM: CT ABD+PEL WO CON DATE: 11/17/2023 COMPARISON: 07/14/2023 INDICATION: Right-sided flank pain for a few weeks. TECHNIQUE: Noncontrast imaging A dose lowering technique was used for this procedure, which may include,but is not limited to, dose reduction technique, automated exposurecontrol, iterative reconstruction, ALARA (As Low As ReasonablyAchievable), or Image Gently techniques. FINDINGS: Multiple pulmonary granulomas. Aortic valve replacement.Extensive and diffuse arterial calcifications. No aneurysm of the aorta.Possible left renal artery origin stenosis. STEPHIE stenosis. Diffuse fatty infiltration of an normal size liver. The spleen isenlarged with homogeneous noncontrast density. Low density right adrenalmass is unchanged dimensions. Density measurements are quite variablebetween 5 and 25 Hounsfield units. Findings likely represent a ratherlarge and relatively lipid poor adenoma. Calcified dependent gallstones with no right upper quadrantinflammation. No urinary tract calcifications or obstruction. Small calcification inthe renal capsule region inferiorly on the right side is unchanged.Unchanged renal cysts. Tiny indeterminate nodule along the lateral marginof the left kidney measures about 5 mm. This is smaller than previously.Normal urinary bladder. Small fat-containing umbilical hernia. Moderateto large stool volume through the majority of the large bowel. Some ofthis fecal density material is also within the terminal ileum. No pointof obstruction. Probable stasis or valvular reflux. The appendix is notvisualized. No right lower quadrant inflammation. Diffuse thoracolumbar degenerative disc disease with multilevel lumbarspinal stenosis. IMPRESSION: 1. Fatty liver. 2. Enlarged spleen 3. Unchanged right adrenal mass. 4. Moderate/large stool volume. 5. No urinary tract obstruction. Referred By: MEGAN INFANTE Interpreted By: David Alcantara MD, 11/17/2023 4:16 PM us Megan Infante MD CT Final Result * HEPATITIS C ANTIBODY (12/24/2022 3:05 PM CDT) Pathologist [facility] HEPATITIS C AB NON-REACTI VE NON-REACT ALEK 12/25/2022 6:28 PM CDT [facility] Comment: ANTIBODIES TO HCV NOT DETECTED. DOES NOT EXCLUDE THE POSSIBILITY OF EXPOSURE TO HCV. 12/24/2022 3:05 PM CDT us Katina Beltran MD LABORATORY Final Resu lt [facility] [address] [place] [address], [place] [phone] * LIPID PANEL (02/01/2022 11:27 AM CDT) Pathologist [facility] CHOLESTEROL 151 MG/DL 02/01/2022 12:29 PM CDT [facility] Comment:DESIRABLE: <200 TRIGLYCERIDES 119 MG/DL 02/01/2022 12:29 PM CDT [facility] Comment:<150 NORMAL HDL 73 >39 MG/DL 02/01/2022 12:29 PM CDT [facility] LDL (CALCULATED) 54 MG/DL 02/02/20 12:29 PM CDT [facility] Comment:<100 OPTIMAL VLDL CALCULATION 24 MG/DL 02/02/20 12:29 PM CDT [facility] Comment:REFERENCE RANGE NOT ESTABLISHED CHOL/HDL RATIO 2.1 02/01/2022 12:29 PM CDT [facility] Comment:REFERENCE RANGE NOT ESTABLISHED LDL/HDL 0.7 02/01/2022 12:29 PM CDT [facility] Comment:REFERENCE RANGE NOT ESTABLISHED NON HDL CHOLESTEROL 78 MG/DL 02/01/2022 12:29 PM CDT [facility] Comment:REFERENCE RANGE NOT ESTABLISHED 02/01/2022 11:2 7 AM CDT us Segundo Montana MD LABORATORY Final Result [facility] [address] [place] [address], [phone] * Colonoscopy (01/27/2022 6:48 AM CDT) us Kilo Navarro MD GI PROCEDURE ORDERABLES Final Result from Last 3 Months or Most Recently Relevant to Health Maintenance Insurance [facility] [employer] [facility] Advance Directives Documents on File Type Date Recorded Patient Welfare Project Manager Expl anation Advance Directives and Living Will 02/22/2020 1:54 PM 04/11/2012 POLST Advance Directives and Living Will 11/06/2017 POWER OF FINGER GRIP MACHINE OPERATOR FO R HEALTH CARE Advance Directives and Living Will 01/04/2017 POWER OF FINGER GRIP MACHINE OPERATOR FO R HEALTH CARE Advance Directives and Living Will 01/04/2017 SHORT FORM POWER OF FINGER GRIP MACHINE OPERATOR Advance Directives and Living Will 05/13/2016 POWER OF FINGER GRIP MACHINE OPERATOR FO R HEALTH CARE Advance Directives and Living Will 05/13/2016 SHORT FORM POWER OF FINGER GRIP MACHINE OPERATOR Advance Directives and Living Will 04/06/2016 POWER OF FINGER GRIP MACHINE OPERATOR FO R HEALTH CARE Advance Directives and Living Will 03/23/2016 POWER OF FINGER GRIP MACHINE OPERATOR FO R HEALTH CARE Advance Directives and Living Will 01/27/2016 POWER OF FINGER GRIP MACHINE OPERATOR FO R HEALTH CARE Advance Directives and Living Will 10/23/2015 POWER OF FINGER GRIP MACHINE OPERATOR FO R HEALTH CARE Advance Directives and Living Will 10/21/2015 POWER OF FINGER GRIP MACHINE OPERATOR FO R HEALTH CARE Advance Directives and Living Will 10/21/2015 POWER OF FINGER GRIP MACHINE OPERATOR FO R HEALTH CARE Advance Directives and Living Will 10/21/2015 POWER OF FINGER GRIP MACHINE OPERATOR FO R HEALTH CARE Advance Directives and Living Will 10/01/2015 POWER OF FINGER GRIP MACHINE OPERATOR FO R HEALTH CARE Advance Directives and Living Will 08/08/2015 POWER OF FINGER GRIP MACHINE OPERATOR FO R HEALTH CARE Advance Directives and Living Will 06/25/2014 POWER OF FINGER GRIP MACHINE OPERATOR FO R HEALTH CARE Advance Directives and Living Will 05/23/2014 POWER OF FINGER GRIP MACHINE OPERATOR FO R HEALTH CARE * DNR (Latest Code Status on File) Date Activated Date Inactivated Comments 08/31/2024 12:01 PM * Full Code Date Activated Date Inactivated Comments 07/31/2024 5:48 PM 08/03/2024 3:13 PM * Full Code Date Activated Date Inactivated Comments 07/12/2023 7:39 PM 07/16/2023 1:32 PM * Full Code Date Activated Date Inactivated Comments 02/16/2023 4:32 AM 02/18/2023 3:27 PM * Full Code Date Activated Date Inactivated Comments 02/06/2023 4:57 AM 02/09/2023 3:44 PM Care Teams Egg Processing Supervisor Relationship Specialty Start Date End Date Megan Infante MD [address] [place] [phone] PCP - General FAMILY PRACTICE 04/06/16 Zaki Ortiz MD [address] [place] [id number] Consulting Physician PULMONARY DISEASE 07/12/19 Concetta Acevedo MD [address] [place] [id number] Surgeon NEUROLOGICAL SURGERY 12/16/22 Jeff Grace MD [address] [place] [address] Consulting Physician INTERNAL MEDICINE 02/11/23 Brit Gonzáles MD [address] [place] [address] Consulting Physician CARDIOVASCULAR DISEASE 12/29/23
--- OUTSIDE RECORDS SUMMARY | 2024-09-03 19:06 | XMS_ITS | Encounter Summary ---
Author Organization [facility] - [facility] Address [facility] [place] [address] [place] [address] Care Team Providers Care Cold Header Name Role Phone Megan Infante MD Primary Care Provider [phone] Zaki Ortiz MD Unavailable [phone] Concetta Acevedo MD Unavailable + [phone] Jeff Grace MD Unavailable Brit Gonzáles MD Unavailable Reason for Referral * Physical Medicine (Routine) - New Request Specialty Diagnoses / Procedures Referred By Yung sequeira Referred To Contact PHYSICAL THERAPY Diagnoses Chronic combined systolic and diastolic congestive heart failure ([facility]) Procedures OFFICE/OUTPATIENT NEW LOW MDM 30-44 MINUTES OFFICE/OUTPT VISIT,NEW,LEVL IV OFFICE/OUTPT VISIT,NEW,LEVL V OFFICE/OUTPT VISIT,EST,LEVL III OFFICE/OUTPT VISIT,EST,LEVL IV OFFICE/OUTPT VISIT,EST,LEVL V Sapphire Peterson NP [address] [place] [address] Phone: tel: fax: Referral ID Status Reason Start Date Expiration Date Visits Requested Visits Authorized [id number] New Request Physical Therapy 08/02/2025 1 1 IFIED EMERGENCY VEHICLE TECHNICIAN * (Routine) - New Request Specialty Diagnoses / Procedures Referred By Contac t Referred To Contact Procedures OT Eval and Treat Sapphire Peterson NP [address] [place] [address] Phone: tel: fax: Referral ID Status Reason Start Date Expiration Date V isits Requested Visits Authorized [id number] New Request 08/01/2024 08/01/2025 1 1 IFIED EMERGENCY VEHICLE TECHNICIAN * (Routine) - New Request Specialty Diagnoses / Procedures Referred By uYng t Referred To Contact Procedures PT Eval and Treat Sapphire Peterson NP [address] [place] [address] Phone: tel: fax: Referral ID Status Reason Start Date Expiration Date V isits Requested Visits Authorized [id number] New Request 08/01/2024 08/01/2025 1 1 IFIED EMERGENCY VEHICLE TECHNICIAN Reason for Visit * Reason Comments Shortness Of Breath * Auth/Cert (Routine) Specialty Diagnoses / Procedures Referred By Contac t Referred To Contact Diagnoses Shortness of breath Hyperkalemia Chronic pain CKD (chronic kidney disease) CHF exacerbation ([facility]) Procedures NA Cornelius Mathur MD [address] [place] [address] Phone: tel: fax: Referral ID Status Reason Start Date Expiration Date Visits Re quested Visits Authorized [id number] 1 1 Encounter Details Date Type Department Care Team (Late st Contact Info) Description 07/31/2024 3:15 PM CERTIFIED EMERGENCY VEHICLE TECHNICIAN - 08/03/2024 1:08 PM CERTIFIED EMERGENCY VEHICLE TECHNICIAN Hospital Encounter [facility] [address] [place] [address] Jena Kong MD [address] [place] [id number] Megan Infante MD [address] [place] [address] Cornelius Mathur MD [address] [place] [address] Shortness Of Breath Discharge Disposition: Home or Self Care (Routine Discharge) Social History Tobacco Use Types Packs/Day Years Used Date Smoking Tobacco: Former Passive Smoke Exposure: Past Smokeless Tobacco: Former Chew Alcohol Use Standard Drinks/Week Comments Yes 0 (1 standard drink = 0.6 oz pur e alcohol) 4 beers per week [facility] Utilities Answer Date Recorded In the past 12 months has e [employer], gas, oil, or water [employer] threatened to shut off services in your [...] How often do you attend mandaeism or jew serv ices? Patient declined 02/16/2023 Do you [...] move on to questions 3-9 0 12/01/2021 [facility] - Occupational [...] place to sleep or slept in a fpc (including now)? Patient declined 07/12/2023 Housing Stability [...] time in the past 12 m [facility], were you homeless or living in a fpc (including now)? No 07/31/2024 Sex and Gender Information Value Date Recorded Sex Assigned at Not on file Legal Sex Male 10:01 PM CDT Gender Identity Not on file Sexual Orientation Not on file Occupation Industry Job Start Date Job End Date Not on file Not on file Not on file Not on file documented as of this encounter Last Filed Vital Signs Vital Sign Reading Time Taken Comments Blood Pressure 116/72 08/03/2024 8:50 AM CERTIFIED EMERGENCY VEHICLE TECHNICIAN Pulse 72 08/03/2024 8:50 AM CERTIFIED EMERGENCY VEHICLE TECHNICIAN Temperature 36.2 ??C (97.2 ??F) 08/03/2024 8:50 AM CS T Respiratory Rate 18 08/03/2024 8:50 AM CERTIFIED EMERGENCY VEHICLE TECHNICIAN Oxygen Saturation 95% 08/03/2024 8:50 AM CERTIFIED EMERGENCY VEHICLE TECHNICIAN Inhaled Oxygen Concentration - - Weight 103 kg (227 lb) 08/03/2024 5:05 AM CERTIFIED EMERGENCY VEHICLE TECHNICIAN Height 167.6 cm (5' 6 ) 07/31/2024 5:49 PM CERTIFIED EMERGENCY VEHICLE TECHNICIAN Body Mass Index 36.64 07/31/2024 5:49 PM CERTIFIED EMERGENCY VEHICLE TECHNICIAN documented in this encounter Functional Status * Question Answer Date of Assessment Author Status Do you have serious difficulty walking or climbing stairs? Yes 07/31/2024 5:50 PM CERTIFIED EMERGENCY VEHICLE TECHNICIAN Abril Contreras RN Activ e * Question Answer Date of Assessment Author Status Do you have difficulty dressing or bathing? Yes 07/31/2024 5:50 PM CERTIFIED EMERGENCY VEHICLE TECHNICIAN Abril Contreras RN A ctive Because of a physical, mental, or emotional condition, do you have difficulty doing errands alone such as visiting a doctor's office or shopping? No 07/31/2024 5:50 PM CERTIFIED EMERGENCY VEHICLE TECHNICIAN Abril Contreras RN Active * Are you deaf or [...] or making decisions? Yes 07/31/2024 5:50 PM Abril Prather RN A ctive * Because of a physical, mental, or emotional condition, do you have serious difficulty concentrating, remembering, or making decisions? Answer Entry Date Author Status Yes 07/31/2024 5:50 PM Abril Prather RN Active documented in this encounter Discharge Instructions * Attachments The following attachments cannot be sent through Care Everywhere. * Nystatin (Topical), ADULT (Citizen Of [place]) documented in this encounter Medications at Time [...] as of this encounter Progress Notes * Sapphire Peterson NP - 08/03/2024 1:08 PM CST Request for Documentation Clarification Obie Marquez ; VISIT [id number] Query Response Sent: 08/15/24 17:02 CERTIFIED EMERGENCY VEHICLE TECHNICIAN From: Sapphire Peterson NP Query question: Based on medical judgment and consideration of these clinical indicators, the following condition was evaluated, monitored and/or treated during this episode of care Provider response: Acute on chronic systolic heart failure IFIED EMERGENCY VEHICLE TECHNICIAN Original Query Sent: 08/08/24 06:09 CERTIFIED EMERGENCY VEHICLE TECHNICIAN From: Yari Gallardo, Clinical Farm Equipment Service Technician - RN, BSN To: Sapphire Peterson NP By submitting this query, we are seeking further clarification of documentation to accurately reflect all conditions that you monitored, evaluated, treated, or that may have extended the hospitalization or utilization of additional resources for care. Chart review has indicated your clinical opinion is needed regarding the following diagnosis. Your response serves as your authenticated entry to the Legal Medical Record. The fact that a question isasked does not imply that any particular diagnosis is desired or expected. Based on medical judgment and consideration of these clinical indicators, the following condition was evaluated, monitored and/or treated during this episode of care * Acute on chronic systolic heart failure * Acute on chronic heart failure (please specify type) * Other Clinical Information H&P by Megan Infante MD at 08/01/24 1246 - 69 yr old male who presents to the emergency room at the recommendation of his primary care physician's office for shortness of breath. Patient states that he has had shortness of breath that is gotten progressively worse over the past 1 month. Patient states that he has significant dyspnea on exertion. Patient has been taking his Lasix 80 mg daily. No chest pain. Patient states he has had a 20 pound weight gain. He states his legs are swollen. Patient has oxygen at home but has not needed touse it. He also states he has inhalers at home but has not needed to use them. No fevers. No difficulty urinating although patient does feel that he has had decreased urination. Patient is still taking Coumadin as prescribed. No falls or trauma. Patient does have a history of chronic pain and takesNorco 10-325 at home. He is complaining of pain in his legs at this time. Patient sees Dr. Gonzáles for cardiology and was last seen in March. Progress Notes by Sapphire Peterson NP at 08/01/24 1036 - Patient is a 68 year old with PMHx CAD, CHF and pulmonary HTN, osteomyelitis, paroxysmal A-fib s/p PVI, aortic stenosis, HLD, CKD DM on insulin, COPD, Venous insufficiency, admitted overnight for CHF exacerbation. Patient reported progressive shortness of breath and 20 lb weight gain over the past month. Patient on 80 mg lasix daily with reported compliance. Last Echo 02/2024 EF 40- 45% with moderate global hypokinesis. BNP 2996, new pulmonary vascular congestion with interstitial edema on CXR.Patient given IV lasix in ED. Patient with approximate 5 lb weight loss noted this morning. Patientcontinued to have dyspnea with exertion, crackles noted on auscultation of lungs to L mid lung. Patient with generalized edema, non pitting. Will consult wound for ulcers to lower extremities. 03/17/2024 ECHO in EPIC - The left ventricular size is normal. The left ventricular systolic function is depressed. Estimated left ventricular ejection fraction is 40-45%. There is no left ventricular hypertrophy. The average E/e' is >14. Left ventricular diastolic function is not accessible due to atrial fibrillation LABS 07/31 Pro-BNP 2996 MEDS 07/31 - 08/03 Lasix 80 mg IV Daily IFIED EMERGENCY VEHICLE TECHNICIAN * Penny Bay RN - 08/03/2024 11:44 AM CSTSummary: FINAL D/C Note Final D/C Note Destination: Home Transportation: private vehicle New DME for home: none Referral sent to [facility] for PT. Wound Center appt scheduled and on AVS. IFIED EMERGENCY VEHICLE TECHNICIAN * Penny Bay RN - 08/03/2024 11:42 AM CSTSummary: FINAL D/C Plan 08/03/24 1141 Discharge Planning Living Arrangements Children Support Systems Children Type of Residence Private residence Assistance Needed No Patient expects to be discharged to: Home or Self care no new needs Insurance Authorization needed No Does the patient need discharge transport arranged? No IV Infusion at discharge No DME Needed at Discharge No Obie is to return home via private vehicle. He has an appt with Wound Center next week and is on his AVS. Referral has also been sent to [facility] out patient clinic for PT. IFIED EMERGENCY VEHICLE TECHNICIAN * Sapphire Peterson NP - 08/03/2024 11:36 AM CST Reviewed discharge with Dr. Infante including insulin and coumadin changes. Patient okay to discharge at this time. IFIED EMERGENCY VEHICLE TECHNICIAN * Abril Contreras RN - 08/03/2024 11:27 AM CST Problem: Discharge Planning Goal: Knowledge of discharge instructions Outcome: Adequate for Discharge Problem: Pain control/comfort Goal: Promote pain control/comfort Outcome: Adequate for Discharge Problem: Skin integrity, Impaired-wound Goal: Absence of new skin breakdown Outcome: Adequate for Discharge Goal: Evidence of wound healing Outcome: Adequate for Discharge Problem: Moisture associated skin impairment Goal: Reduce moisture exposure Outcome: Adequate for Discharge Problem: Reduced risk for falls/injury Goal: Reduced Risk for Falls/Injury Outcome: Adequate for Discharge Goal: Reduced Risk of Confusion (Acute vs Chronic) Outcome: Adequate for Discharge Goal: Reduced Risk of Symptomatic Depression Outcome: Adequate for Discharge Goal: Reduced Risk of Altered Elimination Outcome: Adequate for Discharge Goal: Reduced Risk of Dizziness/Vertigo/Balance Outcome: Adequate for Discharge Goal: Reduced Risk of Polypharmacy Outcome: Adequate for Discharge Problem: Airway Clearance - Ineffective Goal: Patent airway Outcome: Adequate for Discharge Problem: Breathing Pattern - Ineffective Goal: Respiratory rate within specified parameters Outcome: Adequate for Discharge Problem: Gas Exchange - Impaired Goal: Adequate oxygenation Outcome: Adequate for Discharge IFIED EMERGENCY VEHICLE TECHNICIAN * Tasneem Randolph, OT - 08/03/2024 9:24 AM CST OT Initial Evaluation Discharge Recommendation: home with assistance Activity Recommendation for director sports: UP with 1 2ww GB 08/03/24 0700 Therapy Visit OT Received On 08/03/24 Reason for admission Pt is a 68 yo male who presents with SOB, BLE edema and CHF exacerbation....PMH:atrial fibrillation, coronary artery disease, aortic stenosis, aortic valve regurgitation, and chronic obstructive pulmonary disease not on home oxygen.....Eval and tx Ordering Provider Sapphire Peterson NP Verified Two Patient Identifiers Yes Patient consents to therapy Yes Acute Inpatient OT Time Calculation OT Start Time 915 OT Stop Time 923 OT Time Calculation (min) 8 min Precautions Instructed on Precautions Yes;Verbalizes understanding Subjective Subjective Pt seated in bedside chair upon arrival and agreeable to therapy eval Prior Function PLOF Comments Pt lives with his daughter and her family in a one story house with a basement. Pt has 2-3 YANG with handrail. Pt reports he lives in the basement and has a stair lift to the basement. Pt has a walk-in shower with seat and grab bars and standard toilet with riser with arms. Pt needs some help with dressing and bathing. Pt's daughter takes care of all IADLs. Pt was ambulating with 4wwin the house and cane when he would go out of the home. Pt reports multiple falls in the past year.DME: power recliner, cane, ww, riser. .................... Pt reporting after last admission he went to swing bed for 4 days and then was discharged home. Pt reports 2 falls since being discharged from rehab unit. Pt reports that his daughter is an OT in the school system Pain Pain Patient does not offer or c/o pain Activity Tolerance Activity Tolerance Comments Appears to be at baseline function Vision - Basic Assessment Current Vision No visual deficits Vision - Complex Assessment Additional Comments no acute changes Cognition Overall Cognitive Status WFL Arousal/Alertness Appropriate responses to stimuli Attention Span Appears intact Memory Appears intact Orientation Level Oriented X4 Following Commands Follows all commands and directions without difficulty Safety Judgment Good awareness of safety precautions Awareness of Errors Good awareness of errors made Deficits Fully aware of deficits Problem Solving Able to problem solve independently Motor Planning Appears intact Perseveration Not present Initiation Appears intact Overall Extremity Assessment Upper Extremity AROM/strength WFL throughout Hand Function Hand Dominance Right Gross Grasp Functional Coordination Functional Sensation Light Touch No apparent deficits ADL Additional Comments Pt requires assistance to don socks, reports he wears ethologist shoes where feetslide in at home. Pt has a avionics systems integration specialist to assist with donning pants. Bed Mobility Other (Comment) Seated in chair upon arrival and at departure Functional Transfers Sit to Stand Modified independence Bed to Chair Modified independence Other (Comment) Pt mod I sit to stand and amb with 2ww short distances in room and hallway with 2wwgood safety and no LOB Balance Sitting - Static Independent Sitting - Dynamic Independent Standing - Static Modified independence;Support of both upper extremities Standing - Dynamic SBA;Support of both upper extremities;Modified independence Other (Comment) No LOB noted this session Assessment Occupational Profile and History Complexity Moderate (Expanded) Performance Deficit Level Low (1-3 deficits) Clinical Decision Making Low (no modifications) Complexity Level of Evaluation Low Prognosis Good Discharge Recommendation OT Recommendation Home with assistance;No skilled OT;Ambulate with nurse No Skilled OT No acute OT goals identified Plan Progress Discontinue OT OT - Next Appointment 08/03/24 If this is the last treatment note, it will serve as the discharge summary Yes End of Session End of Session Safety Call light within reach;Nursing aware of session;Transfer status education OT will sign off on Pt at this time due to Pt appearing to be at prior level of independence; Pt inagreement. Please send new orders if a change in medical status occurs. Patient was educated on precautions exercises transfers ADLs balance bed mobility equipment therapy plan gait safety energy conservation. Education was completed one to one verbal hands-on this date. Barriers to education this date were none. Response to education this date verbalized understanding IFIED EMERGENCY VEHICLE TECHNICIAN * Penny Bay RN - 08/03/2024 9:17 AM CSTSummary: Subsequent IMM notice 08/03/24 0917 Forms Reinforcement Important Message from Medicare (Subsequent IMM) Signed Copy delivered Reviewed follow-up copy of the Important Message from Medicare with Patient. The Patient acknowledged understanding. A copy of the form was left with the Patient. IFIED EMERGENCY VEHICLE TECHNICIAN * Ally Infante RN - 08/02/2024 9:56 PM CST Problem: Discharge Planning Goal: Knowledge of discharge instructions Outcome: Progressing Note: No discharge orders at this time. Problem: Pain control/comfort Goal: Promote pain control/comfort Outcome: Progressing Note: PRN medication available. Problem: Skin integrity, Impaired-wound Goal: Absence of new skin breakdown Outcome: Progressing Note: No new skin breakdown. Goal: Evidence of wound healing Outcome: Progressing Note: Healing ongoing. Problem: Moisture associated skin impairment Goal: Reduce moisture exposure Outcome: Progressing Note: Linen clean and dry, urinal within reach. Problem: Reduced risk for falls/injury Goal: Reduced Risk for Falls/Injury Outcome: Progressing Note: Fall precautions maintained. Goal: Reduced Risk of Confusion (Acute vs Chronic) Outcome: Progressing Note: Patient alert and oriented x 4. Goal: Reduced Risk of Symptomatic Depression Outcome: Progressing Note: No signs or symptoms. Goal: Reduced Risk of Altered Elimination Outcome: Progressing Note: WNL Goal: Reduced Risk of Dizziness/Vertigo/Balance Outcome: Progressing Note: No signs or symptoms. Goal: Reduced Risk of Polypharmacy Outcome: Progressing Note: MD reviewed. Problem: Airway Clearance - Ineffective Goal: Patent airway Outcome: Progressing Note: Airway patent. Problem: Breathing Pattern - Ineffective Goal: Respiratory rate within specified parameters Outcome: Progressing Note: WNL Problem: Gas Exchange - Impaired Goal: Adequate oxygenation Outcome: Progressing Note: WNL IFIED EMERGENCY VEHICLE TECHNICIAN * Marlin Darnell RN - 08/02/2024 2:08 PM CST Patient aware of discharge plan. Pain controlled with PO pain medication. Skin assessed, bilateral lower legs wrapped in onel boot up to knees. He is alert and oriented. Calls for assistance, and usesurinal as needed. Fall precautions maintained. Problem: Discharge Planning Goal: Knowledge of discharge instructions 08/02/2024 1408 by Marlin Darnell RN Outcome: Progressing Problem: Pain control/comfort Goal: Promote pain control/comfort 08/02/2024 1408 by Marlin Darnell RN Outcome: Progressing Problem: Skin integrity, Impaired-wound Goal: Absence of new skin breakdown 08/02/2024 1408 by Marlin Darnell RN Outcome: Progressing Problem: Skin integrity, Impaired-pressure injury/ulcer Goal: Absence of new skin breakdown 08/02/2024 1408 by Marlin Darnell RN Outcome: Progressing Problem: Skin integrity, at risk Goal: Absence of new skin breakdown 08/02/2024 1408 by Marlin Darnell RN Outcome: Progressing Problem: Reduced risk for falls/injury Goal: Reduced Risk of Confusion (Acute vs Chronic) 08/02/2024 1408 by aMrlin Darnell RN Outcome: Progressing Goal: Reduced Risk of Symptomatic Depression 08/02/2024 1408 by Marlin Darnell RN Outcome: Progressing Goal: Reduced Risk of Altered Elimination 08/02/2024 1408 by Marlin Darnell RN Outcome: Progressing Goal: Reduced Risk of Dizziness/Vertigo/Balance 08/02/2024 1408 by Marlin Darnell RN Outcome: Progressing Goal: Reduced Risk of Polypharmacy 08/02/2024 1408 by Marlin Darnell RN Outcome: Progressing Goal: Evidence of pressure injury/ulcer healing 08/02/2024 1408 by Marlin Darnell RN Outcome: Progressing Goal: Evidence of wound healing 08/02/2024 1408 by Marlin Darnell RN Outcome: Progressing IFIED EMERGENCY VEHICLE TECHNICIAN * Ally Infante RN - 08/01/2024 10:06 PM CST Problem: Discharge Planning Goal: Knowledge of discharge instructions Outcome: Progressing Note: No discharge orders. Problem: Pain control/comfort Goal: Promote pain control/comfort Outcome: Progressing Note: PRN medication available. Problem: Skin integrity, Impaired-wound Goal: Absence of new skin breakdown Outcome: Progressing Note: No new skin breakdown. Goal: Evidence of wound healing Outcome: Progressing Note: Healing ongoing. Problem: Moisture associated skin impairment Goal: Reduce moisture exposure Outcome: Progressing Note: Dressings to BLE clean, dry, intact, assist with elimination needs at needed. Problem: Reduced risk for falls/injury Goal: Reduced Risk for Falls/Injury Outcome: Progressing Note: Fall precautions maintained. Goal: Reduced Risk of Confusion (Acute vs Chronic) Outcome: Progressing Note: Patient alert and oriented x 4. Goal: Reduced Risk of Symptomatic Depression Outcome: Progressing Note: No signs or symptoms. Goal: Reduced Risk of Altered Elimination Outcome: Progressing Note: Patient occasionally incontinent, assist with elimination needs as needed. Goal: Reduced Risk of Dizziness/Vertigo/Balance Outcome: Progressing Note: No signs or symptoms. Goal: Reduced Risk of Polypharmacy Outcome: Progressing Note: MD reviewed. Problem: Airway Clearance - Ineffective Goal: Patent airway Outcome: Progressing Note: Airway patent. Problem: Breathing Pattern - Ineffective Goal: Respiratory rate within specified parameters Outcome: Progressing Note: WNL Problem: Gas Exchange - Impaired Goal: Adequate oxygenation Outcome: Progressing Note: 99% on room air. IFIED EMERGENCY VEHICLE TECHNICIAN * Abril Contreras RN - 08/01/2024 6:05 PM CST Problem: Pain control/comfort Goal: Promote pain control/comfort Outcome: Progressing Note: PRN pain medication available Problem: Skin integrity, Impaired-wound Goal: Absence of new skin breakdown Outcome: Progressing Note: Wound care preformed Goal: Evidence of wound healing Outcome: Progressing Note: Wound care preformed Problem: Skin integrity, Impaired-pressure injury/ulcer Goal: Absence of new skin breakdown Outcome: Progressing Note: No new breakdown noted Problem: Skin integrity, at risk Goal: Absence of new skin breakdown Outcome: Progressing Note: No new breakdown noted Problem: Moisture associated skin impairment Goal: Reduce moisture exposure Outcome: Progressing Note: Patient kept clean and dry Problem: Reduced risk for falls/injury Goal: Reduced Risk for Falls/Injury Outcome: Progressing Note: Patient educated on fall precautions Goal: Reduced Risk of Confusion (Acute vs Chronic) Outcome: Progressing Note: Patient alert and oriented Goal: Reduced Risk of Symptomatic Depression Outcome: Progressing Note: Respirations WDL Goal: Reduced Risk of Altered Elimination Outcome: Progressing Note: Patient assisted with elimination as needed Goal: Reduced Risk of Dizziness/Vertigo/Balance Outcome: Progressing Note: Rise patient slowly Problem: Airway Clearance - Ineffective Goal: Patent airway Outcome: Progressing Note: Airway remains patent Problem: Breathing Pattern - Ineffective Goal: Respiratory rate within specified parameters Outcome: Progressing Note: Respirations WDL Problem: Gas Exchange - Impaired Goal: Adequate oxygenation Outcome: Progressing Note: 97% on RA IFIED EMERGENCY VEHICLE TECHNICIAN * Penny Bay RN - 08/01/2024 5:05 PM CSTSummary: Initial D/C plan 08/01/24 1705 Discharge Plan Discharge Plan Discharge to Home ESTIVEN spoke with Obie regarding his discharge plan. He states he is planning to return home via private vehicle and prefers to go to out-patient PT at [facility]. IFIED EMERGENCY VEHICLE TECHNICIAN * LALIT Cheney - 08/01/2024 2:42 PM CSTSummary: inpatient wound care consult Wound Care Obie Sims is an 1955 male. Chief Complaint: shortness of breath HPI: 68 yo male with hx of CHF, COPD, CAD, T2DM, PVD, Venous insufficiency, venous ulcers and htn presented to the ED with complaints of shortness of breath. States that the sob had progressively worsenedover the last month. Also states that he has had increased swelling and weight gain, increase BELLA and inability to sleep while flat. States that he has been sleeping in his recliner. Patient states that his legs have been weeping for a couple of weeks. States that he has been scratching his arms and legs due to itching. States that he also noticed open wounds to bilateral lower legs a couple weeks ago. Patient has been treated in the past at [facility]. Last visit 05/30/2024. Past Medical History: Diagnosis Date Abnormal ankle brachial index (STELLA) Acute on chronic heart failure, unspecified heart failure type ([facility]) Anxiety Aortic valve stenosis Arthritis Asthma, mild persistent ([facility]) 04/06/2021 Atrial fibrillation ([facility]) s/p PVI/[facility] 10/2015 Bilateral leg pain Carotid disease, bilateral ([facility]) CHF (congestive heart failure) ([facility]) Claudication ([facility]) COPD (chronic obstructive pulmonary disease) ([facility]) Coronary artery disease Diabetes mellitus, type II ([facility]/HCC HHS/HCC) Edema 04/19/2018 2+ pitting History of blood transfusion Hyperlipidemia Hypertension LV dysfunction 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) 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) Osteoarthritis PAD (peripheral artery disease) (CMS/HCC) Pneumonia Restless leg syndrome S/P aortic valve replacement with bioprosthetic valve 2013 SOB (shortness of breath) Stroke (CMS/HCC HHS/HCC) Varicose veins of bilateral lower extremities with other complications Weight gain with edema Past Surgical History: Procedure Laterality Date APPENDECTOMY CARDIAC VALVE REPLACEMENT 1999 CARDIAC VALVE REPLACEMENT 2013 CARDIOVERSION EXTERNAL 10/01/2015 CARDIOVERSION EXTERNAL 04/14/2012 COLONOSCOPY N/A 03/18/2021 COLONOSCOPY (Incomplete) performed by Kilo Navarro MD at OR COLONOSCOPY N/A 01/27/2022 COLONOSCOPY WITH COLD SNARE POLYPECTOMY performed by Kilo Navarro MD at OR HIP ARTHROPLASTY Left KNEE ARTHROPLASTY Bilateral REPAIR ROTATOR CUFF W/ OR W/O ACROMIOPLASTY Left USE NEMO+CARDIOVERSION 03/24/2016 XA A-FIB ABLATION 10/23/2015 PVI/[facility] Social History Tobacco Use Smoking status: Former Passive exposure: Past Smokeless tobacco: Former Types: Chew Substance Use Topics Alcohol use: Yes Comment: 4 beers per week Family History Problem Relation Name Age of Onset TB Mother No Known Allergies Current Facility-Administered Medications Medication Dose Route Frequency Provider Last Rate Last Admin albuterol sulfate HFA 108 (90 Base) MCG/ACT inhaler 2 puff 2 puff Inhalation Q4H PRN Jena Kong MD 2 puff at 07/31/242133 allopurinol (ZYLOPRIM) tablet 300 mg 300 mg Oral Daily Jena Kong MD 300 mg at 08/01/24 0834 atorvastatin (LIPITOR) tablet 80 mg 80 mg Oral Nightly at bedtime Jena Kong MD 80 mg at 07/31/242052 carvedilol (COREG) tablet 3.125 mg 3.125 mg Oral BID Jena Kong MD 3.125 mg at 08/01/24 0834 docusate sodium (COLACE) capsule 100 mg 100 mg Oral Daily PRN Jena Kong MD empagliflozin (JARDIANCE) tablet 25 mg 25 mg Oral Daily Jena Kong MD 25 mg at 08/01/24 0834 folic acid (FOLVITE) tablet 1 mg 1 mg Oral Daily Jena Kong MD 1 mg at 08/01/24 0834 glipiZIDE XL (GLUCOTROL XL) 24 hr tablet 5 mg 5 mg Oral Daily with breakfast Jena Kong MD 5 mg at 08/01/24 0834 HYDROcodone-acetaminophen (NORCO) 10-325 MG tablet 1 tablet 1 tablet Oral Q6H PRN Jena Kong MD 1 tablet at 08/01/24 1151 hydrOXYzine (ATARAX) tablet 25 mg 25 mg Oral TID PRN Sapphire Peterson NP 25 mg at 08/01/24 1151 insulin glargine (LANTUS) injection 5 Units 5 Units Subcutaneous Nightly at bedtime Sapphire Peterson NP mometasone-formoterol (DULERA) 100-5 MCG/ACT inhaler 2 puff 2 puff Inhalation 2 times daily Jena Kong MD 2 puff at 08/01/24 0724 nystatin (MYCOSTATIN) powder Topical BID Sapphire Peterson NP pantoprazole EC (PROTONIX) tablet 40 mg 40 mg Oral Daily Jena Kong MD 40 mg at 08/01/24 0834 sacubitril-valsartan (ENTRESTO) 24-26 MG tablet 1 tablet 1 tablet Oral BID Jena Kong MD 1 tablet at 08/01/24 0834 sertraline (ZOLOFT) tablet 50 mg 50 mg Oral Daily Jena Kong MD 50 mg at 08/01/24 0834 tiotropium (SPIRIVA RESPIMAT) 2.5 MCG/ACT inhaler 2 puff 2 puff Inhalation Daily Jena Kong MD 2 puff at 08/01/24 0726 traZODone (DESYREL) tablet 300 mg 300 mg Oral Nightly at bedtime Jena Kong MD 300 mg at 07/31/242052 Review of Systems Constitutional: Positive for malaise/fatigue. Negative for chills and fever. HENT: Negative for ear pain and sore throat. Eyes: Negative for pain and discharge. Respiratory: Positive for shortness of breath. Negative for cough. Cardiovascular: Positive for leg swelling. Negative for chest pain. Gastrointestinal: Negative for diarrhea, nausea and vomiting. Skin: Positive for itching. Bilateral lower leg wounds and weeping Neurological: Negative for dizziness and headaches. Blood pressure (!) 155/83, pulse 79, temperature 97.2 ??F (36.2 ??C), temperature source Tympanic, resp. rate 20, height 1.676 m (5' 6 ), weight 105.2 kg (232 lb), SpO2 97%. Physical Exam Vitals and nursing note reviewed. Exam conducted with a emt p present. Constitutional: Appearance: Normal appearance. HENT: Head: Normocephalic and atraumatic. Right Ear: External ear normal. Left Ear: External ear normal. Nose: Nose normal. Mouth/Throat: Mouth: Mucous membranes are moist. Eyes: Conjunctiva/sclera: Conjunctivae normal. Pulmonary: Effort: Pulmonary effort is normal. Abdominal: General: There is distension. Musculoskeletal: General: Swelling (3+ bilaterally, left ankle circumference 23 cm, left calf circumference 37 cm. Right ankle circumerence 22 cm. right calf circumference 37.5 cm) present. Skin: General: Skin is warm and dry. Capillary Refill: Capillary refill takes less than 2 seconds. Comments: Bilateral lower legs shiny skin, hemosiderin stain, venous stasis changes, xerosis, no hair growth proximal calf down Left lower leg open wounds slough filled, 2 cm x 1 cm x 0.1 cm Right lower leg open wound cluster of wounds are slough filled 5.8 cm x 4 cm x 0.1 cm Clear serous fluid weeping from wounds to bilateral lower legs. Neurological: General: No focal deficit present. Mental Status: He is alert and oriented to person, place, and time. Imaging: Results for orders placed or performed during the hospital encounter of 07/31/24 XR CHEST PORTABLE Narrative [address] [address] [place] [address] Examination: Portable chest. Exam time: 1523 hours. Clinical history: Dyspnea. CHF. Comparison: 05/02/2024. Technique: AP upright view. Findings: Allowing for differences in projection and rotation, the cardiomediastinal silhouette is stable. The heart remains enlarged. Changes from median sternotomy and aortic valve replacement noted. There is now pulmonary vascular congestion with perivascular haziness and interstitial prominence, compatible with interstitial edema. No confluent infiltrates or effusions are identified. The visualized bony thorax is stable. Plate and screw fusion in the lower cervical spine again evident. Impression IMPRESSION: Cardiomegaly with new congestive changes as described. No focal infiltrates. Ordered By: JENA KONG Interpreted By: Nicko Portillo MD, 07/31/2024 4:12 PM Labs: Recent Results (from the past 24 hours) CBC W/DIFF AUTOMATED Collection Time: 07/31/24 3:36 PM Result Value Ref Range WBC 8.34 4.00 - 10.80 x10'3/uL RBC 3.88 (L) 4.50 - 6.10 x10'6/uL HGB 11.2 (L) 13.0 - 18.0 G/DL HCT 35.0 (L) 37.0 - 52.0 % MCV 90.2 78.0 - 100.0 FL MCH 28.9 27.0 - 31.0 PG MCHC 32.0 (L) 33.0 - 36.0 G/DL RDW 16.0 (H) 11.5 - 14.5 % PLT 82 (L) 150 - 350 x10'3/uL MPV 12.4 (H) 7.4 - 10.4 FL CBC COMMENT NORMAL REFERENCE RANGE NOT ESTABLISHED FOR THE PROPORTIONAL LEUKOCYTE DIFFERENTIAL. NEUTROPHILS % 70.4 % LYMPHOCYTES % 12.0 % MONOCYTES % 13.5 % EOSINOPHILS % 3.5 % BASOPHILS % 0.4 % IMMATURE GRANS % 0.2 % NRBC % 0.0 % ABS. NEUTROPHILS 5.87 1.60 - 8.30 x10'3/uL ABS. LYMPHOCYTES 1.00 0.80 - 4.70 x10'3/uL ABS. MONOCYTES 1.13 0.00 - 1.50 x10'3/uL ABS. EOSINOPHILS 0.29 0.00 - 0.40 x10'3/uL ABS. BASOPHILS 0.03 0.00 - 0.20 x10'3/uL ABS. IMMATURE GRANULOCYTES 0.02 0.00 - 0.03 x10'3/uL ABS. NUCLEATED RBC'S 0.00 0.00 - 0.01 x10'3/uL PROTIME/INR, VENOUS Collection Time: 07/31/24 3:36 PM Result Value Ref Range PROTIME 72.6 (H) 9.4 - 12.5 SEC INR 6.4 (HH) 0.8 - 1.0 COMPREHENSIVE METABOLIC PANEL Collection Time: 07/31/24 3:36 PM Result Value Ref Range SODIUM S/P/B 133 (L) 136 - 145 MMOL/L POTASSIUM S/P/B 5.2 (H) 3.5 - 5.1 MMOL/L CHLORIDE S/P/B 100 98 - 107 MMOL/L CO2 24.6 21.0 - 32.0 MMOL/L GLUCOSE 73 70 - 99 MG/DL BUN 52 (H) 6 - 24 MG/DL CREATININE S/P/B 1.84 (H) 0.70 - 1.30 MG/DL CALCIUM S/P/B 8.7 8.4 - 10.5 MG/DL BILIRUBIN TOTAL S/P/B 1.0 0.2 - 1.0 MG/DL ALKALINE PHOSPHATASE S/P/B 121 (H) 45 - 115 U/L AST 32 15 - 37 U/L ALT 31 16 - 63 U/L TOTAL PROTEIN S/P/B 7.5 6.4 - 8.2 G/DL ALBUMIN S/P/B 3.3 (L) 3.4 - 5.0 G/DL ANION GAP 8.4 5.0 - 15.0 MMOL/L OSMOLALITY (CALC) 289 MOSM/KG GFR ESTIMATE 39 (L) >89 ML/MIN/1.73 M2 GFR NOTES GFR REFERENCES: TROPONIN, QUANT Collection Time: 07/31/24 3:36 PM Result Value Ref Range TROPONIN I HIGH SENSITIVITY 48 0 - 76 ng/L LACTIC ACID W REFLEX (SEPSIS) Collection Time: 07/31/24 3:36 PM Result Value Ref Range LACTIC ACID VENOUS 0.4 0.4 - 2.0 MMOL/L MAGNESIUM Collection Time: 07/31/24 3:36 PM Result Value Ref Range MAGNESIUM 2.0 1.8 - 2.4 MG/DL PRO-BRAIN NATRIURETIC PEPTIDE Collection Time: 07/31/24 3:36 PM Result Value Ref Range PRO-B TYPE NATRIURETIC PEPTIDE 2,996 (H) <125 PG/ML BLOOD CULTURE #1 Collection Time: 07/31/24 3:43 PM Specimen: BLOOD Result Value Ref Range SPEC DESCRIPTION BLOOD SPECIAL REQUESTS NO SPECIAL REQUEST CULTURE RESULT NO GROWTH 1 DAY URINALYSIS Collection Time: 07/31/24 4:57 PM Result Value Ref Range COLOR (U) YELLOW TRANSPARENCY CLEAR SPECIFIC GRAVITY (U) 1.005 1.000 - 1.025 U PH 5.5 5.0 - 8.0 LEUKOCYTES (U) NEGATIVE NEGATIVE NITRITES NEGATIVE NEGATIVE PROTEIN RANDOM (U) NEGATIVE NEGATIVE GLUCOSE (U) TRACE (A) NEGATIVE KETONES MG/DL (U) NEGATIVE NEGATIVE UROBILINOGEN 0.2 <1.0 EU/DL BILIRUBIN (U) NEGATIVE NEGATIVE BLOOD (U) TRACE (A) NEGATIVE WBC/HPF 0-5 0 - 5 /HPF RBC/HPF 0-5 0 - 5 /HPF EPI/LPF RARE /LPF BACTERIA (U) 1+ /HPF MUCUS PRESENT CULTURE URINE Collection Time: 07/31/24 4:57 PM Specimen: URINE, CLEAN CATCH Result Value Ref Range SPEC DESCRIPTION URINE CLEAN CATCH SPECIAL REQUESTS NO SPECIAL REQUEST CULTURE RESULT NO GROWTH (< OR = 1,000 CFU/ML) TO DATE POCT glucose Collection Time: 07/31/24 6:13 PM Result Value Ref Range GLUCOSE POC 70 70 - 99 MG/DL POCT glucose Collection Time: 07/31/24 8:41 PM Result Value Ref Range GLUCOSE POC 107 (H) 70 - 99 MG/DL CBC W/DIFF AUTOMATED Collection Time: 08/01/24 5:24 AM Result Value Ref Range WBC 8.21 4.00 - 10.80 x10'3/uL RBC 3.81 (L) 4.50 - 6.10 x10'6/uL HGB 11.1 (L) 13.0 - 18.0 G/DL HCT 34.5 (L) 37.0 - 52.0 % MCV 90.6 78.0 - 100.0 FL MCH 29.1 27.0 - 31.0 PG MCHC 32.2 (L) 33.0 - 36.0 G/DL RDW 16.0 (H) 11.5 - 14.5 % PLT 87 (L) 150 - 350 x10'3/uL MPV 13.5 (H) 7.4 - 10.4 FL CBC COMMENT NORMAL REFERENCE RANGE NOT ESTABLISHED FOR THE PROPORTIONAL LEUKOCYTE DIFFERENTIAL. NEUTROPHILS % 66.7 % LYMPHOCYTES % 12.5 % MONOCYTES % 14.4 % EOSINOPHILS % 5.8 % BASOPHILS % 0.4 % IMMATURE GRANS % 0.2 % NRBC % 0.0 % ABS. NEUTROPHILS 5.47 1.60 - 8.30 x10'3/uL ABS. LYMPHOCYTES 1.03 0.80 - 4.70 x10'3/uL ABS. MONOCYTES 1.18 0.00 - 1.50 x10'3/uL ABS. EOSINOPHILS 0.48 (H) 0.00 - 0.40 x10'3/uL ABS. BASOPHILS 0.03 0.00 - 0.20 x10'3/uL ABS. IMMATURE GRANULOCYTES 0.02 0.00 - 0.03 x10'3/uL ABS. NUCLEATED RBC'S 0.00 0.00 - 0.01 x10'3/uL PLT MORPH. DECREASED RBC MORPHOLOGY 1+ BASIC METABOLIC PANEL Collection Time: 08/01/24 5:24 AM Result Value Ref Range SODIUM S/P/B 137 136 - 145 MMOL/L POTASSIUM S/P/B 4.6 3.5 - 5.1 MMOL/L CHLORIDE S/P/B 103 98 - 107 MMOL/L CO2 27.2 21.0 - 32.0 MMOL/L GLUCOSE 48 (LL) 70 - 99 MG/DL BUN 51 (H) 6 - 24 MG/DL CREATININE S/P/B 1.72 (H) 0.70 - 1.30 MG/DL CALCIUM S/P/B 8.7 8.4 - 10.5 MG/DL ANION GAP 6.8 5.0 - 15.0 MMOL/L OSMOLALITY (CALC) 295 MOSM/KG GFR ESTIMATE 42 (L) >89 ML/MIN/1.73 M2 GFR NOTES GFR REFERENCES: PROTIME/INR, VENOUS Collection Time: 08/01/24 5:24 AM Result Value Ref Range PROTIME 73.5 (H) 9.4 - 12.5 SEC INR 6.5 (HH) 0.8 - 1.0 POCT glucose Collection Time: 08/01/24 6:35 AM Result Value Ref Range GLUCOSE POC 44 (L) 70 - 99 MG/DL POCT glucose Collection Time: 08/01/24 6:56 AM Result Value Ref Range GLUCOSE POC 68 (L) 70 - 99 MG/DL POCT glucose Collection Time: 08/01/24 7:39 AM Result Value Ref Range GLUCOSE POC 133 (H) 70 - 99 MG/DL POCT glucose Collection Time: 08/01/24 11:53 AM Result Value Ref Range GLUCOSE POC 60 (L) 70 - 99 MG/DL Assessment/ Plan: #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 breakdown of skin 2/2 chf edema and PVD and stasis dermatitis vs cellulitis #Non-pressure chronic ulcer of left calf limited to breakdown of skin 2/2 CHF edema and PVD and stasis dermatitis vs cellulitis 04/11/2024 arterial duplex SUMMARY: Rt Lower Ext: 0-19% stenosis noted in all segments of the right lower extremity, though VOLTMETER OPERATOR waveform could be suggestive of inflow disease. Lt Lower Ext: 0-19% stenosis noted in all segments of the left lower extremity, though VOLTMETER OPERATOR waveform could be suggestive of inflow disease. 05/30/2024 STELLA FINDINGS: STELLA Rt: Unable to assess the STELLA due to circumferentially calcified blood vessels at the ankle. ABIgreater than 1.4 which suggests the presence of calcific medial sclerosis. Pulse volume tracings suggest mild peripheral arterial occlusive disease. The toe pressure is 79 mmHg. The TBI is 0.62. TBI is within abnormal range. STELLA Lt: Unable to assess the STELLA due to circumferentially calcified blood vessels at the ankle. STELLA greater than 1.4 which suggests the presence of calcific medial sclerosis. Pulse volume tracings suggest mild peripheral arterial occlusivedisease. The toe pressure is 93 mmHg. The TBI is 0.73. TBI is within abnormal range. Last appointment with vascular, Dr. Grace 04/17/2024. Recommends multilayer compression, leg elevation and calf pump exercises . Dietary consult to optimize diet for wound healing and low salt cardiac diet. PT/OT evaluation for improved ROM and calf pump exercises leg elevation, avoid sitting with legs in dependent position and avoiding prolonged standing tolerated UNNA dressings well in the past. Reapplied in tab wrap fashion. Monitor neurovascular status of toes. Dressings to be removed in 48 hours for skin/neurovascular check and then reapplied. Ifdressing becomes saturated, please change. Patient to follow up with wound care center after discharge LALIT CHENEY Cosigned by Jeff Grace MD at 08/01/2024 4:46 PM CERTIFIED EMERGENCY VEHICLE TECHNICIAN IFIED EMERGENCY VEHICLE TECHNICIAN IFIED EMERGENCY VEHICLE TECHNICIAN * Wei Frazier PT - 08/01/2024 1:37 PM CST Instructions for Nursing: PLEASE ENCOURAGE WALKING IN HALLWAY 3-4X/DAY HE IS ADMITTED WITH FWW AND GAIT BELT FAR PATIENT MAY TOLERATE AT A GIVEN TIME. PATIENT INSTRUCTED IN THIS WELL DURING EVALUATION. Physical Therapy Inpatient Evaluation Time In: 1314 Time Out: 1326 Obie Good Alireza 326/01 Shortness of breath [R06.02] Hyperkalemia [E87.5] Chronic pain [G89.29] CKD (chronic kidney disease) [N18.9] CHF exacerbation ([facility]) [I50.9] Past Medical History: Diagnosis Date Abnormal ankle brachial index (STELLA) Acute on chronic heart failure, unspecified heart failure type ([facility]) Anxiety Aortic valve stenosis Arthritis Asthma, mild persistent ([facility]) 04/06/2021 Atrial fibrillation ([facility]) s/p PVI/[facility] 10/2015 Bilateral leg pain Carotid disease, bilateral ([facility]) CHF (congestive heart failure) ([facility]) Claudication ([facility]) COPD (chronic obstructive pulmonary disease) ([facility]) Coronary artery disease Diabetes mellitus, type II ([facility]) Edema 04/19/2018 2+ pitting History of blood transfusion Hyperlipidemia Hypertension LV dysfunction Non-pressure chronic ulcer of left calf limited to breakdown of skin ([facility]) 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 breakdown of skin ([facility]) Osteoarthritis PAD (peripheral artery disease) ([facility]) Pneumonia Restless leg syndrome S/P aortic valve replacement with bioprosthetic valve 2013 1999, 2013 SOB (shortness of breath) Stroke ([facility]) Varicose veins of bilateral lower extremities with other complications Weight gain with edema Past Surgical History: Procedure Laterality Date APPENDECTOMY CARDIAC VALVE REPLACEMENT 1999 CARDIAC VALVE REPLACEMENT 2013 CARDIOVERSION EXTERNAL 10/01/2015 CARDIOVERSION EXTERNAL 04/14/2012 COLONOSCOPY N/A 03/18/2021 COLONOSCOPY (Incomplete) performed by Kilo Navarro MD at OR COLONOSCOPY N/A 01/27/2022 COLONOSCOPY WITH COLD SNARE POLYPECTOMY performed by Kilo Navarro MD at OR HIP ARTHROPLASTY Left KNEE ARTHROPLASTY Bilateral REPAIR ROTATOR CUFF W/ OR W/O ACROMIOPLASTY Left USE NEMO+CARDIOVERSION 03/24/2016 XA A-FIB ABLATION 10/23/2015 PVI/[facility] Subjective: Orientation: x 4 Pain: Pt denies any pain, Patient reports he is looking into OP or home health PT when he is discharged and questions PT whether this is a valid want or not at this time or if it would be safe. He has connects with PT in [place] and will explore. He reports he just continues to feel like this every few months and lets it get too far before seeking assistance. He does have assistance at home several days a week for cleaning, laundry, etc. He would like to return home at d/c and expects to. Pt has a sort of quad cane in the room initially from home, but reports mostly using FWW at home as he spends a lot of time in basement where FWW is located. Home Environment: House Entrance: 3 steps with Bilateral handrail. Living arrangements - The patient lives with their family. Patient has been ambulatory with quad cane or 2 wheeled walker Objective: Patient was in chair upon PT arrival. Observation: Pt in no distress and is able to communicate and participate with PT very well and appropriately. He is able to follow commands and initiate mobility on his own along with problem-solving. He demonstrates good understanding of his situation as well as appropriate safety and energy conse rvation per PT observation during evaluation. Precautions/Restrictions: Low Fall Risk Transfers: Bed mobility/rolling: Not Performed this Date, pt in chair. Supine to sit: Not Performed this Date, pt in chair. Sit to stand: CGA, does require 2 attempts initially, minor verbal cuing for momentum. Pivot: Supervision Ambulation: Pt ambulates mod ind with FWW approximately 100'x1 with no cues for safety, stability, or any obvious deviations. He does have some diminished foot clearance and severe B ER progression foot angles, but is otherwise safe and does not demonstrate any obvious exertional symptoms post-ambulation per PT observation. Activity performed this session: Evaluation only this date. Assessment: Obie Sims is a 68-year-old male who presents with a primary complaint of Shortness of breath [R06.02] Hyperkalemia [E87.5] Chronic pain [G89.29] CKD (chronic kidney disease) [N18.9] CHF exacerbation ([facility]) [I50.9]. Patient is demonstrating no significant mobility deficits in functional mobility compared to previous baseline per pt report and chart review. He does takea few attempts to get out of chair, but when at home he sits in a lift chair and has no issues withthis. After discussing with pt, he reports no concerns with returning home at current mobility level and would likely begin OP PT when he is feeling up to it post-d/c from hospital setting. Skilled therapy is therefore deemed not appropriate at this time and pt may return home at medical d/c and isd/c from skilled physical therapy. Personal Factors/Co-Morbidities Affecting Care: 3-4+ Examination of Body Systems: Low (1-2) Clinical Presentation of Patient: Stable Uncomplicated Eval Complexity: Low PT Plan: D/C from PT. Anticipated Discharge at this time: Home or Home with Assist Safety at conclusion of Treatment: Patient in Chair, Call Light in Reach, Nursing Notified of Situation, and all needs met per pt report. IFIED EMERGENCY VEHICLE TECHNICIAN * Penny Bay, RN - 08/01/2024 11:59 AM CSTSummary: Initial Assessment 08/01/24 1159 Referral Data Source of Information Patient Patient Information Primary Caregiver Self Current living Situation Children Type of Residence Private residence Support System Immediate family Are you employed? Retired ([employer]) Recent Hospitalization Recent Hospitalization within 30 days No Legal Information Guardianship Documentation Not applicable Power of Geophysics Scientist Healthcare Status Patient Declines Baseline ADL's Functional Status Independent;Minimum assistance Active DME Cane;Walker;Oxygen;Other (comment) (shower seat; O2 from [employer]) Behavior Oriented;Cooperative Communication Talks;Understands speaking;Understands Citizen Of [place] Current Services Being Provided Other Services Non-medical help ([facility]; 2days/week) Psychosocial Need Indicator Mental health concerns No Diagnosis/prognosis resulting in poor adjustment or coping with illness No Diagnosis/prognosis with anticipated outcome of major lifestyle changes, including change in terminal computer operator living environment No Complex Family concerns No Abuse and/or neglect of elder, adult or child No Psychiatric and/or substance abuse issues affecting current hospitalization No Homelessness with lack of safe discharge environment No Need for guardianship petition No Involuntary patient No DC screening tool This is a screening tool it does not take the place of a physical or occupational therapy evaluation. The screening is to screen the patient for what services and destination would be beneficial for patient for next level of care Conversation with the patient/family Will the patient be returning to prior living situation with no new identified needs? Yes Based on the screening the DC plan for consideration is: Patient expects to be discharged to: Home or Self care no new needs (out patient PT) Adequate Resources Available Adequate Resources Yes CM spoke with Obie in patient's room. He stated the following: Current PCP: Current Pharm: [facility] [place] Home Environment: ; Lives in a basement apartment in his daughter's house with her and her and 2 children Employment: retired, [employer] Home DME: cane, walker, shower seat, oxygen ([employer]) PLOF: ind - min assist HCPOA on file: No, declined information Current with Home Health: No Current with Homemaker Services: Yes [facility]; 2 days/week Current Out Patient Services: none Anticipated D/C Plan: Return home and referrals to out-patient PT at [facility] Anticipated D/C transportation: private vehicle Initial Initial IMM notice given on: 07/31/24 Risk of Unplanned Readmission Score Predictive Model Details 22 Factor Value Calculated 08/01/2024 16:24 11% Number of hospitalizations in last year 0 Risk of Unplanned Readmission Model 10% Latest RDW in last 72 hrs 16 % 9% Number of ED visits in last 90 days 2 8% Number of active outpatient medication orders 27 6% Latest BUN in last 72 hrs 51 MG/DL 6% Toby score 18 5% Diagnosis of renal failure present 3% Diagnosis of diabetes w/o complications present 3% Antiasthmatics administration present 3% Latest creatinine in last 72 hrs 1.72 MG/DL 2% Latest lactate in last 72 hrs .4 MMOL/L 2% Latest total protein in last 72 hrs 7.5 G/DL 2% Number of appointments in last 90 days 9 2% Active outpatient hematopoietic agent Rx present 2% Latest hemoglobin in last 72 hrs 11.1 G/DL 1% Active outpatient beta kim Rx present 1% Active outpatient diuretic Rx present 1% Diagnosis of specified heart arrhythmias present 1% Diagnosis of cardio-respiratory failure or shock not present 1% Beta blockers administration present 1% Tobacco use status quit 1% Active outpatient anticoagulant Rx present 1% Latest RBC count in last 72 hrs abnormal (3.81 x10'6/uL) 1% Alcohol use status yes 1% Latest albumin in last 72 hrs abnormal (3.3 G/DL) 1% Financial class Medicare 1% Latest neutrophil count in last 72 hrs not abnormal (5.47 x10'3/uL) 1% Active outpatient antihypertensive Rx not present 1% Latest MCV in last 72 hrs 90.6 FL 1% Relationship status 1% Patient age [age] years old 1% Latest alkaline phosphatase in last 72 hrs abnormal (121 U/L) 1% Latest basophil count in last 72 hrs .03 x10'3/uL 1% Latest CO2 in last 72 hrs not abnormal (27.2 MMOL/L) 1% Diagnosis of acute renal failure not present 1% Latest INR in last 72 hrs abnormal (73.5 SEC) 1% Corticosteroids administration not present 1% Ulcer drugs administration present 1% Active outpatient antidiabetic Rx present 1% Latest monocyte count in last 72 hrs 1.18 x10'3/uL 1% Latest platelet count in last 72 hrs abnormal (87 x10'3/uL) 1% Drug use status no 0% Active outpatient antidepressant Rx present 0% Diagnosis of fluid or electrolyte disorder present 0% Active outpatient vitamin Rx not present 0% Latest lymphocyte count in last 72 hrs 1.03 x10'3/uL 0% Laxatives administration not present 0% Latest AST in last 72 hrs 32 U/L 0% Latest calcium in last 72 hrs not abnormal (8.7 MG/DL) 0% Active outpatient ulcer drug Rx present 0% Antipsychotics administration not present 0% Legal sex male 0% BMI 37.46 0% Latest glucose in last 72 hrs abnormal (60 MG/DL) 0% Diagnosis of lung cancer or other severe cancer not present 0% Active outpatient multivitamin Rx not present 0% Admission type urgent 0% Analgesic narcotics administration present 0% Active outpatient analgesic non-narcotic Rx present 0% Active outpatient antirheumatic Rx not present 0% Active outpatient antihyperlimidemic Rx present 0% Diagnosis of cancer not present 0% Diagnosis of cerebrovascular disease present 0% Latest phosphorous in last 72 hrs not present 0% Antihyperlipidemics administration present 0% Latest total bilirubin in last 72 hrs not abnormal (1 MG/DL) Patient's individualized interventions for Risk of Unplanned Readmission: Medium Risk (12-22) Interventions - Medications: assisted with access to/affording medication - to facilitate medication compliance post-discharge Transportation: assisted in setting up transportation to appointments Medical Providers: ensured patient has a medical provider to follow-up with on an outpatient basis Caregiver: ensured patient has appropriate caregiver services in place or that the process has beeninitiate with patient CM will continue to follow IFIED EMERGENCY VEHICLE TECHNICIAN * Sapphire Peterson NP - 08/01/2024 10:36 AM CST Patient is a 68 year old with PMHx CAD, CHF and pulmonary HTN, osteomyelitis, paroxysmal A-fib s/p PVI, aortic stenosis, HLD, CKD DM on insulin, COPD, Venous insufficiency, admitted overnight for CHFexacerbation. Patient reported progressive shortness of breath and ~20 lb weight gain over the pastmonth. Patient on 80 mg lasix daily with reported compliance. Last Echo 02/2024 EF 40- 45% with moderate global hypokinesis. BNP 2996, new pulmonary vascular congestion with interstitial edema on CXR. Patient given IV lasix in ED. Patient with approximate 5 lb weight loss noted this morning. Patient continued to have dyspnea with exertion, crackles noted on auscultation of lungs to L mid lung. Patient with generalized edema, non pitting. Will consult wound for ulcers to lower extremities. IFIED EMERGENCY VEHICLE TECHNICIAN IFIED EMERGENCY VEHICLE TECHNICIAN * Penny Bay RN - 08/01/2024 9:42 AM CSTSummary: IDR note 08/01/24 0942 Interdisciplinary Group Conference Team Members Present Case/Care management;Nursing;CAREY;Pharmacy Patient Current Status Paient current status Inpatient Barriers to Discharge Inpatient Review Barriers to Discharge Inpatient Test Pending;Mobility Progression Needs;Administering IV meds Test Pending follow up BC and Urine cx pending Mobility Progression Needs follow up awaiting recommendations Administering IV meds follow up IV Lasix Patient expects to be discharged to Patient expects to be discharged to: Home or Self care no new needs -Admitting Dx >CHF -IV Medications >Lasix -PT/OT >Awaiting recommendations -Respiratory >O2 - room air -Testing/Imaging >Trend Labs >Blood and Urine Cxs - pending -Dietary >Diet - carb controlled -D/C Plan >CM to discuss discharge plan with patient once PT/OT recommendations are known >Anticipated to D/C pending progress and assessment from Dr. Infante IFIED EMERGENCY VEHICLE TECHNICIAN * Ally Infante RN - 07/31/2024 9:09 PM CST Problem: Discharge Planning Goal: Knowledge of discharge instructions Outcome: Progressing Note: No discharge orders at this time. Problem: Pain control/comfort Goal: Promote pain control/comfort Outcome: Progressing Note: PRN medication available. Problem: Skin integrity, Impaired-wound Goal: Absence of new skin breakdown Outcome: Progressing Note: No new skin breakdown. Goal: Evidence of wound healing Outcome: Progressing Note: Healing ongoing to BLE. Problem: Moisture associated skin impairment Goal: Reduce moisture exposure Outcome: Progressing Note: Linen clean and dry, urinal within reach, dressings changed as needed. Problem: Reduced risk for falls/injury Goal: Reduced Risk for Falls/Injury Outcome: Progressing Note: Fall precautions maintained. Goal: Reduced Risk of Confusion (Acute vs Chronic) Outcome: Progressing Note: Patient alert and oriented x 4. Goal: Reduced Risk of Symptomatic Depression Outcome: Progressing Note: No signs or symptoms. Goal: Reduced Risk of Altered Elimination Outcome: Progressing Note: Patient on lasix therapy, urinal within reach. Goal: Reduced Risk of Dizziness/Vertigo/Balance Outcome: Progressing Note: No signs or symptoms. Goal: Reduced Risk of Polypharmacy Outcome: Progressing Note: MD reviewed. Problem: Airway Clearance - Ineffective Goal: Patent airway Outcome: Progressing Note: Airway patent. Problem: Breathing Pattern - Ineffective Goal: Respiratory rate within specified parameters Outcome: Progressing Note: WNL Problem: Gas Exchange - Impaired Goal: Adequate oxygenation Outcome: Progressing Note: WDL on room air. IFIED EMERGENCY VEHICLE TECHNICIAN * Abril Contreras RN - 07/31/2024 6:29 PM CST Problem: Discharge Planning Goal: Knowledge of discharge instructions Outcome: Progressing Note: Patient educated Problem: Pain control/comfort Goal: Promote pain control/comfort Outcome: Progressing Note: PRN pain medication available Problem: Skin integrity, Impaired-wound Goal: Absence of new skin breakdown Outcome: Progressing Note: Wounds dressed Goal: Evidence of wound healing Outcome: Progressing Note: Dressing kept clean and dry Problem: Moisture associated skin impairment Goal: Reduce moisture exposure Outcome: Progressing Note: Patient kept clean and dry Goal: Evidence of wound healing Outcome: Progressing Note: Wound dressing applied Problem: Reduced risk for falls/injury Goal: Reduced Risk for Falls/Injury Outcome: Progressing Note: Patient educated on fall precautions Goal: Reduced Risk of Confusion (Acute vs Chronic) Outcome: Progressing Note: Patient alert and oriented Goal: Reduced Risk of Symptomatic Depression Outcome: Progressing Note: Respirations WDL Goal: Reduced Risk of Altered Elimination Outcome: Progressing Note: Patient assisted with elimination as needed Goal: Reduced Risk of Dizziness/Vertigo/Balance Outcome: Progressing Note: Rise patient slowly Problem: Airway Clearance - Ineffective Goal: Patent airway Outcome: Progressing Note: Airway patent Problem: Breathing Pattern - Ineffective Goal: Respiratory rate within specified parameters Outcome: Progressing Note: Respirations WDL Problem: Gas Exchange - Impaired Goal: Adequate oxygenation Outcome: Progressing Note: 94% on RA IFIED EMERGENCY VEHICLE TECHNICIAN documented in this encounter H&P Notes * Megan Infante MD - 08/01/2024 12:46 PM CST Admission History and Physical History Primary Care Provider: MEGAN INFANTE MD Admitting Provider: Cornelius Mathur MD Attending Provider: Megan Infante MD Admission date: 07/31/2024 3:15 PM Patient is a 68-year-old male who presents to the emergency room at the recommendation of his primary care physician's office for shortness of breath. Patient states that he has had shortness of breath that is gotten progressively worse over the past 1 month. Patient states that he has significant dyspnea on exertion. Patient has been taking his Lasix 80 mg daily. No chest pain. Patient states hehas had a 20 pound weight gain. He states his legs are swollen. Patient has oxygen at home but has not needed to use it. He also states he has inhalers at home but has not needed to use them. No fevers. No difficulty urinating although patient does feel that he has had decreased urination. Patient is still taking Coumadin as prescribed. No falls or trauma. Patient does have a history of chronic pain and takes Ophelia 10-325 at home. He is complaining of pain in his legs at this time. Patient seesDr. Gonzáles for cardiology and was last seen in March. Echo 03/17/24 - The left ventricular size is normal. Estimated left ventricular ejection fraction is 40-45%. Moderate global hypokinesis is noted. The right ventricular size is mildly enlarged. Right ventricular systolic pressure is 75 mmHg. Inferior vena cava shows <50% collapse with respiration consistent with elevated right atrial pressure. Bioprosthetic aortic valve with a peak gradient of 31 mmHg (mean gradient 18 mmHg). No evidence of central or ting-prosthetic aortic valve regurgitation. Mild mitral regurgitation. Mild tricuspid regurgitation. Past Medical History: Diagnosis Date Abnormal ankle brachial index (STELLA) Acute on chronic heart failure, unspecified heart failure type ([facility]) Anxiety Aortic valve stenosis Arthritis Asthma, mild persistent ([facility]) 04/06/2021 Atrial fibrillation ([facility]) s/p PVI/[facility] 10/2015 Bilateral leg pain Carotid disease, bilateral ([facility]) CHF (congestive heart failure) ([facility]) Claudication ([facility]) COPD (chronic obstructive pulmonary disease) ([facility]) Coronary artery disease Diabetes mellitus, type II ([facility]) Edema 04/19/2018 2+ pitting History of blood transfusion Hyperlipidemia Hypertension LV dysfunction Non-pressure chronic ulcer of left calf limited to breakdown of skin ([facility]) 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 breakdown of skin ([facility]) Osteoarthritis PAD (peripheral artery disease) ([facility]) Pneumonia Restless leg syndrome S/P aortic valve replacement with bioprosthetic valve 2013 SOB (shortness of breath) Stroke ([facility]) Varicose veins of bilateral lower extremities with other complications Weight gain with edema Past Surgical History: Procedure Laterality Date APPENDECTOMY CARDIAC VALVE REPLACEMENT 1999 CARDIAC VALVE REPLACEMENT 2013 CARDIOVERSION EXTERNAL 10/01/2015 CARDIOVERSION EXTERNAL 04/14/2012 COLONOSCOPY N/A 03/18/2021 COLONOSCOPY (Incomplete) performed by Kilo Navarro MD at OR COLONOSCOPY N/A 01/27/2022 COLONOSCOPY WITH COLD SNARE POLYPECTOMY performed by Kilo Navarro MD at OR HIP ARTHROPLASTY Left KNEE ARTHROPLASTY Bilateral REPAIR ROTATOR CUFF W/ OR W/O ACROMIOPLASTY Left USE NEMO+CARDIOVERSION 03/24/2016 XA A-FIB ABLATION 10/23/2015 PVI/[facility] Social History Tobacco Use Smoking status: Former Passive exposure: Past Smokeless tobacco: Former Types: Chew Vaping Use Vaping status: Never Used Substance Use Topics Alcohol use: Yes Comment: 4 beers per week Drug use: No Family History Problem Relation Name Age of Onset TB Mother Prior to Admission medications Medication Sig Start Date End Date Taking? Authorizing Provider albuterol sulfate HFA 108 (90 Base) MCG/ACT inhaler Inhale 2 puffs into the lungs every 4 (four) hours as needed. 11/14/15 Yes Doc [facility] allopurinol 300 MG tablet Take 1 tablet (300 mg total) by mouth daily. 02/17/19 Yes Doc [facility] aspirin 81 MG chewable tablet Chew 1 tablet (81 mg total) by mouth daily. 04/18/14 Yes Doc [facility] atorvastatin 80 MG tablet Take 1 tablet (80 mg total) by mouth nightly at bedtime. 12/31/16 Yes Doc [facility] carvedilol (COREG) 3.125 MG tablet Take 1 tablet (3.125 mg total) by mouth 2 (two) times daily. 10/09/22 Yes Default History Genericprovider clotrimazole-betamethasone (LOTRISONE) cream 1 Application every 12 (twelve) hours. 07/06/24 Yes Default History Genericprovider cyclobenzaprine (FLEXERIL) 10 MG tablet Take 1 tablet (10 mg total) by mouth 3 (three) times daily as needed for Muscle Spasms. Yes Default History Genericprovider docusate sodium 100 MG capsule Take 1 capsule (100 mg total) by mouth as needed for Constipation. Yes Doc [facility] folic acid (FOLVITE) 1 MG tablet Take 1 tablet (1 mg total) by mouth daily. Yes Default History Genericprovider furosemide (LASIX) 80 MG tablet Take 1 tablet (80 mg total) by mouth daily. 07/17/23 Yes Danita Oh NP gabapentin (NEURONTIN) 400 MG capsule Take 1 capsule (400 mg total) by mouth 2 (two) times daily. 07/16/23 Yes Danita Oh NP glipiZIDE XL (GLUCOTROL XL) 5 MG 24 hr tablet Take 1 tablet (5 mg total) by mouth daily with breakfast. Patient taking differently: Take 1 tablet (5 mg total) by mouth 2 (two) times a day. 02/09/23 Yes Jamie Hilliard MD HYDROcodone-acetaminophen (NORCO) 10-325 MG tablet Take 1 tablet by mouth every 6 (six) hours as needed. Indications: Acute Pain < 7 Day Supply 07/16/23 Yes Danita Oh NP hydrOXYzine (ATARAX) 50 MG tablet Take 2 tablets (100 mg total) by mouth 3 (three) times daily. As needed 10/09/22 Yes Default History Genericprovider insulin degludec (TRESIBA) 200 UNIT/ML injection (PEN) Inject 30 Units into the skin daily. Yes Default History Genericprovider JARDIANCE 25 MG tablet Take 1 tablet (25 mg total) by mouth daily. 10/31/22 Yes Default History Genericprovider pantoprazole EC 40 MG tablet Take 1 tablet (40 mg total) by mouth daily. Yes Doc [facility] pregabalin (LYRICA) 150 MG capsule Take 1 capsule (150 mg total) by mouth 2 (two) times daily. Yes Default History Genericprovider sacubitril-valsartan (ENTRESTO) 24-26 MG tablet Take 1 tablet by mouth 2 (two) times daily. 01/31/24Yes Brit Gonzáles MD Semaglutide (OZEMPIC, 1 MG/DOSE, SC) Inject into the skin once a week. Yes Default History Genericprovider sertraline 50 MG tablet Take 1 tablet (50 mg total) by mouth daily. 10/03/21 Yes Doc [facility] spironolactone (ALDACTONE) 25 MG tablet Take 1 tablet (25 mg total) by mouth daily. 07/16/23 Yes Danita Oh NP tamsulosin (FLOMAX) 0.4 MG Cap Take 1 capsule (0.4 mg total) by mouth daily. Yes Default History Genericprovider traZODone (DESYREL) 150 MG tablet Take 2 tablets (300 mg total) by mouth nightly at bedtime. 03/24/22Yes Doc [facility] AGUSTÍN COMER 100-62.5-25 MCG/ACT AEROSOL POWDER, BREATH ACTIVATED Inhale 1 puff into the lungs daily. 12/23/22 Yes Default History Genericprovider warfarin (COUMADIN) 1 MG tablet Take 1 tablet (1 mg total) by mouth daily. Take with 5mg tab to make it 6 mg daily. Repeat INR in 3-4 days to adjust the dose of warfarin as per PCP 02/18/23 Yes Daniel Dupree MD warfarin (COUMADIN) 5 MG tablet Take 1 tablet (5 mg total) by mouth daily. Take with 1 mg tab to make it 6 mg daily. Repeat INR in 3-4 days to adjust the dose of warfarin as per PCP 02/18/23 Yes Daniel Dupree MD allopurinol 300 mg Oral Daily atorvastatin 80 mg Oral Nightly at bedtime carvedilol 3.125 mg Oral BID empagliflozin 25 mg Oral Daily folic acid 1 mg Oral Daily glipiZIDE XL 5 mg Oral Daily with breakfast insulin glargine 5 Units Subcutaneous Nightly at bedtime mometasone-formoterol 2 puff Inhalation 2 times daily nystatin Topical BID pantoprazole EC 40 mg Oral Daily pregabalin 150 mg Oral BID sacubitril-valsartan 1 tablet Oral BID sertraline 50 mg Oral Daily tiotropium 2 puff Inhalation Daily traZODone 300 mg Oral Nightly at bedtime albuterol sulfate HFA, docusate sodium, HYDROcodone-acetaminophen, hydrOXYzine No Known Allergies Review of Systems Constitutional: Positive for chills and fever. Weight gain over last few weeks. Musculoskeletal: Positive for back pain. Skin: Negative for itching and rash. 10 point ROS negative except otherwise specified in HPI Physical Exam Filed Vitals: 08/01/24 1315 08/01/24 1930 08/01/24 2109 08/02/24 0527 BP: (!) 155/83 121/71 139/74 130/81 Pulse: 79 86 80 96 Resp: 18 18 Temp: 97.2 ??F (36.2 ??C) 96.4 ??F (35.8 ??C) TempSrc: Tympanic Tympanic Tympanic SpO2: 97% 99% 90% Weight: 104.7 kg (230 lb 12.8 oz) Height: Physical Exam Constitutional: Appearance: Normal appearance. HENT: Head: Normocephalic. Nose: Nose normal. Cardiovascular: Rate and Rhythm: Normal rate. Rhythm irregular. Pulmonary: Effort: Pulmonary effort is normal. Breath sounds: Normal breath sounds. No wheezing. Comments: Crackles at bases Abdominal: General: There is distension. Palpations: There is no mass. Tenderness: There is no guarding. Hernia: A hernia is present. Musculoskeletal: Cervical back: Normal range of motion and neck supple. Right lower leg: Edema present. Comments: Left akle swollen, but less red Skin: General: Skin is warm and dry. Capillary Refill: Capillary refill takes less than 2 seconds. Neurological: General: No focal deficit present. Mental Status: He is alert and oriented to person, place, and time. Psychiatric: Mood and Affect: Mood normal. Thought Content: Thought content normal. Recent Labs Lab 07/31/[id number]/01/[id number]/02/24512 WBC 8.34 8.21 8.86 RBC 3.88* 3.81* 3.95* HGB 11.2* 11.1* 11.5* HCT 35.0* 34.5* 35.7* MCV 90.2 90.6 90.4 MCH 28.9 29.1 29.1 MCHC 32.0* 32.2* 32.2* PLT 82* 87* 98* RDW 16.0* 16.0* 15.9* MPV 12.4* 13.5* 13.0* PERNEU 70.4 66.7 65.8 PERLYM 12.0 12.5 14.2 PERMON 13.5 14.4 14.2 PEREOS 3.5 5.8 5.2 PERBASO 0.4 0.4 0.3 NEUC 5.87 5.47 5.82 LYMC 1.00 1.03 1.26 MONOC 1.13 1.18 1.26 EOSC 0.29 0.48* 0.46* BASOC 0.03 0.03 0.03 Recent Labs Lab 12/09/24 1536 12/10/24 0524 12/11/24 0513 NA 133* 137 137 K 5.2* 4.6 4.8 CL 100 103 102 CO2 24.6 27.2 28.6 AGAP 8.4 6.8 6.4 BUN 52* 51* 45* CR 1.84* 1.72* 1.75* GLU 73 48* 103* CA 8.7 8.7 9.1 TP 7.5 -- 7.2 ALB 3.3* -- 3.1* TBIL 1.0 -- 1.4* ALKP 121* -- 118* AST 32 -- 27 ALT 31 -- 25 Recent Labs Lab 07/31/24 1536 08/01/24 0524 08/02/24 0513 INR 6.4* 6.5* 3.3* Recent Labs Lab 07/31/24 1536 TROP 48 Recent Labs Lab 08/02/2413 NA 137 K 4.8 CL 102 CO2 28.6 BUN 45* CR 1.75* CA 9.1 GLU 103* AGAP 6.4 TP 7.2 ALB 3.1* ALT 25 WBC 8.86 HGB 11.5* PLT 98* No results found. However, due to the size of the patient record, not all encounters were searched.Please check Results Review for a complete set of results. Results for orders placed or performed during the hospital encounter of 07/31/24 (from the past 5 weeks) CULTURE URINE Collection Time: 07/31/24 4:57 PM Specimen: URINE, CLEAN CATCH Result Value Ref Range SPEC DESCRIPTION URINE CLEAN CATCH SPECIAL REQUESTS NO SPECIAL REQUEST CULTURE RESULT NO GROWTH (< OR = 1,000 CFU/ML) Results for orders placed or performed during the hospital encounter of 07/31/24 (from the past 5 weeks) BLOOD CULTURE #1 Collection Time: 07/31/24 3:43 PM Specimen: BLOOD Result Value Ref Range SPEC DESCRIPTION BLOOD SPECIAL REQUESTS NO SPECIAL REQUEST CULTURE RESULT NO GROWTH 1 DAY No results found. Assessment Principal Problem: CHF exacerbation ([facility]) SNOMED CT(R): ACUTE EXACERBATION OF CHRONIC CONGESTIVE HEART FAILURE Plan 1.Diuresing with IV Lasix and will likely need an additional day. MEGAN INFANTE MD IFIED EMERGENCY VEHICLE TECHNICIAN documented in this encounter Consult Notes * Shayy Cox, RD - 08/02/2024 4:16 PM CSTAssociated Order(s): IP CONSULT TO DIETITIAN CLINICAL DIETITIAN NUTRITION EDUCATION Reason for education: RD consulted by physician to educate patient regarding diabetic and cardiac diet and diet for wound healing. Individual(s) educated: patient Therapeutic diet: low sodium carbohydrate consistent Topics discussed: diet rationale, foods recommended, foods to limit/avoid, portion control, label reading, cooking tips/ food preparation, and dining out Information provided: AND Handout Heart-Healthy Consistent Carbohydrate Nutrition Therapy AND Handout Diabetes Label Reading Tips [id number] Meal Planning and Carb Counting booklet Teaching method: verbal and written Education readiness: ready Barriers to learning: unable to assess Response to education: verbalizes understanding Comprehension: fair Expected adherence: fair Patient goals met upon completion of nutrition education: Pt. able to state the recommended amt of sodium/day. Pt. able to verbalize one way in which to decrease amount of sodium consumed from food or cooking. Pt. able to state alternatives to seasoning without salt. Pt. able to verbalize how to read a food label. Pt. able to state at least 3 foods high in sodium. Pt. able to state recommended methods of cooking. Pt. able to state lean cuts of meat. Pt. able to verbalize 2 sources of heart-healthy fats. Pt. able to verbalize 1 way in which to minimize the use of less healthy fat sources. Pt. able to state the number of meals needed/day. Pt. able to verbalize importance of following a CHO controlled diet. Pt. able to build a meal using amt of carbs allowed using list of carb choices. Pt. able to state the amount of carbs needed/meal. Pt. able to state what the carb groups are. Pt. able to alter commonly eaten meal to fit into a CHO control diet. Follow up education needed: Yes RD contact information provided: Yes Other comments: Patient instructed by phone. Will send patient information in the mail.Patient reports that he knows what foods he should not eat, but often eats them any way. He especially enjoys pretzels and honey buns. SHAYY COX RD, LDN IFIED EMERGENCY VEHICLE TECHNICIAN documented in this encounter ED Notes * Jennifer Mendieta RN - 07/31/2024 4:50 PM CST Brickmason assists pt to stand at bedside to void in the urinal. Pt requests to sit on the edge of the bed for awhile. IFIED EMERGENCY VEHICLE TECHNICIAN * Mayda Mart RN - 07/31/2024 3:27 PM CST Pt arrives via pov c/o sob x 1-2 week pt has had a 20 lb weight gain in 2 months. Pt presents with expiatory wheezes, bilateral leg swelling and weeping. Pt rates pain 9/10 in his leg denies taking pain medications. IFIED EMERGENCY VEHICLE TECHNICIAN * Jena Kong MD - 07/31/2024 3:23 PM CST Chief Complaint Chief Complaint Patient presents with Shortness Of Breath History of Present Illness History obtained from patient and medical records Patient is a 68-year-old male who presents to the emergency room at the recommendation of his primary care physician's office for shortness of breath. Patient states that he has had shortness of breath that is gotten progressively worse over the past 1 month. Patient states that he has significant dyspnea on exertion. Patient has been taking his Lasix 80 mg daily. No chest pain. Patient states hehas had a 20 pound weight gain. He states his legs are swollen. Patient has oxygen at home but has not needed to use it. He also states he has inhalers at home but has not needed to use them. No fevers. No difficulty urinating although patient does feel that he has had decreased urination. Patient is still taking Coumadin as prescribed. No falls or trauma. Patient does have a history of chronic pain and takes Ophelia 10-325 at home. He is complaining of pain in his legs at this time. Patient seesDr. Gonzáles for cardiology and was last seen in March. Echo 03/17/24 - The left ventricular size is normal. Estimated left ventricular ejection fraction is 40-45%. Moderate global hypokinesis is noted. The right ventricular size is mildly enlarged. Right ventricular systolic pressure is 75 mmHg. Inferior vena cava shows <50% collapse with respiration consistent with elevated right atrial pressure. Bioprosthetic aortic valve with a peak gradient of 31 mmHg (mean gradient 18 mmHg). No evidence of central or ting-prosthetic aortic valve regurgitation. Mild mitral regurgitation. Mild tricuspid regurgitation. Medical History ALLERGIES: Review of patient's allergies indicates: No Known Allergies MEDICATIONS: Prior to Admission medications Medication Sig Start Date End Date Taking? Authorizing Provider albuterol sulfate HFA 108 (90 Base) MCG/ACT inhaler Inhale 2 puffs into the lungs every 4 (four) hours as needed. 11/14/15 [facility] allopurinol 300 MG tablet Take 1 tablet (300 mg total) by mouth daily. 02/17/19 [facility] aspirin 81 MG chewable tablet Chew 1 tablet (81 mg total) by mouth daily. 04/18/14 [facility] atorvastatin 80 MG tablet Take 1 tablet (80 mg total) by mouth nightly at bedtime. 12/31/16 [facility] carvedilol (COREG) 3.125 MG tablet Take 1 tablet (3.125 mg total) by mouth 2 (two) times daily. 10/09/22 Default History Genericprovider CIRCAID COMPRESSION WRAP, DME, 1 Package by Does not apply route daily. One garment each leg Patient not taking: Reported on 04/17/2024 08/17/23 LALIT Cheney cyclobenzaprine (FLEXERIL) 10 MG tablet Take 1 tablet (10 mg total) by mouth 3 (three) times daily as needed for Muscle Spasms. Default History Genericprovider docusate sodium 100 MG capsule Take 1 capsule (100 mg total) by mouth as needed for Constipation. [facility] ferrous sulfate, 65 mg elemental, 325 (65 FE) MG tablet Take 1 tablet (325 mg total) by mouth dailywith breakfast. Default History Genericprovider folic acid (FOLVITE) 1 MG tablet Take 1 tablet (1 mg total) by mouth daily. Default History Genericprovider furosemide (LASIX) 80 MG tablet Take 1 tablet (80 mg total) by mouth daily. 07/17/23 Danita Oh,FLOR gabapentin (NEURONTIN) 400 MG capsule Take 1 capsule (400 mg total) by mouth 2 (two) times daily. 07/16/23 Danita Oh NP glipiZIDE XL (GLUCOTROL XL) 5 MG 24 hr tablet Take 1 tablet (5 mg total) by mouth daily with breakfast. 02/09/23 Jamie Hilliard MD HYDROcodone-acetaminophen (NORCO) 10-325 MG tablet Take 1 tablet by mouth every 6 (six) hours as needed. Indications: Acute Pain < 7 Day Supply 07/16/23 Danita Oh NP hydrOXYzine (ATARAX) 50 MG tablet Take 2 tablets (100 mg total) by mouth 3 (three) times daily. As needed 10/09/22 Default History Genericprovider insulin detemir (LEVEMIR FLEXPEN) 100 UNIT/ML PEN Inject 15 Units into the skin nightly at bedtime.02/09/23 Jamie Hilliard MD JARDIANCE 25 MG tablet Take 1 tablet (25 mg total) by mouth daily. 10/31/22 Default History Genericprovider metFORMIN (GLUCOPHAGE) 500 MG tablet Take 1 tablet (500 mg total) by mouth 2 (two) times daily withmeals. Default History Genericprovider pantoprazole EC 40 MG tablet Take 1 tablet (40 mg total) by mouth daily. [facility] potassium chloride CR (KLOR-CON M) 20 MEQ tablet Take 1 tablet (20 mEq total) by mouth 2 (two) times daily. Default History Genericprovider rOPINIRole (REQUIP) 4 MG tablet Take 1 tablet (4 mg total) by mouth nightly at bedtime. 10/17/22 Default History Genericprovider sacubitril-valsartan (ENTRESTO) 24-26 MG tablet Take 1 tablet by mouth 2 (two) times daily. 01/31/24Brit Gonzáles MD sertraline 50 MG tablet Take 1 tablet (50 mg total) by mouth daily. 10/03/21 [facility] spironolactone (ALDACTONE) 25 MG tablet Take 1 tablet (25 mg total) by mouth daily. 07/16/23 Danita Oh NP tiZANidine (ZANAFLEX) 4 MG tablet Take 1 tablet (4 mg total) by mouth 3 (three) times daily as needed. Default History Genericprovider traZODone (DESYREL) 150 MG tablet Take 2 tablets (300 mg total) by mouth nightly at bedtime. 03/24/22[facility] AGUSTÍN COMER 100-62.5-25 MCG/ACT AEROSOL POWDER, BREATH ACTIVATED Inhale 1 puff into the lungs daily. 12/23/22 Default History Genericprovider triamcinolone (KENALOG) 0.1 % cream Apply topically 2 (two) times daily. 07/16/23 Danita Oh NP warfarin (COUMADIN) 1 MG tablet Take 1 tablet (1 mg total) by mouth daily. Take with 5mg tab to make it 6 mg daily. Repeat INR in 3-4 days to adjust the dose of warfarin as per PCP 02/18/23 Daniel Dupree MD warfarin (COUMADIN) 5 MG tablet Take 1 tablet (5 mg total) by mouth daily. Take with 1 mg tab to make it 6 mg daily. Repeat INR in 3-4 days to adjust the dose of warfarin as per PCP 02/18/23 Daniel Dupree MD PAST MEDICAL HISTORY: Past Medical History: Diagnosis Date Abnormal ankle brachial index (STELLA) Acute on chronic heart failure, unspecified heart failure type ([facility]) Anxiety Aortic valve stenosis Arthritis Asthma, mild persistent ([facility]) 04/06/2021 Atrial fibrillation ([facility]) s/p PVI/[facility] 10/2015 Bilateral leg pain Carotid disease, bilateral ([facility]) CHF (congestive heart failure) ([facility]) Claudication ([facility]) COPD (chronic obstructive pulmonary disease) ([facility]) Coronary artery disease Diabetes mellitus, type II ([facility]) Edema 04/19/2018 2+ pitting History of blood transfusion Hyperlipidemia Hypertension LV dysfunction Non-pressure chronic ulcer of left calf limited to breakdown of skin ([facility]) 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 breakdown of skin ([facility]) Osteoarthritis PAD (peripheral artery disease) ([facility]) Pneumonia Restless leg syndrome S/P aortic valve replacement with bioprosthetic valve 2013 SOB (shortness of breath) Stroke ([facility]) Varicose veins of bilateral lower extremities with other complications Weight gain with edema PAST SURGICAL HISTORY: Past Surgical History: Procedure Laterality Date APPENDECTOMY CARDIAC VALVE REPLACEMENT 1999 CARDIAC VALVE REPLACEMENT 2013 CARDIOVERSION EXTERNAL 10/01/2015 CARDIOVERSION EXTERNAL 04/14/2012 COLONOSCOPY N/A 03/18/2021 COLONOSCOPY (Incomplete) performed by Kilo Navarro MD at OR COLONOSCOPY N/A 01/27/2022 COLONOSCOPY WITH COLD SNARE POLYPECTOMY performed by Kilo Navarro MD at OR HIP ARTHROPLASTY Left KNEE ARTHROPLASTY Bilateral REPAIR ROTATOR CUFF W/ OR W/O ACROMIOPLASTY Left USE NEMO+CARDIOVERSION 03/24/2016 XA A-FIB ABLATION 10/23/2015 PVI/[facility] FAMILY HISTORY: Family History Problem Relation Name Age of Onset TB Mother SOCIAL HISTORY: Social History Tobacco Use Smoking status: Former Passive exposure: Past Smokeless tobacco: Former Types: Chew Vaping Use Vaping status: Never Used Substance Use Topics Alcohol use: Yes Comment: 4 beers per week Drug use: No Review of Systems Review of Systems Constitutional: Positive for activity change and fatigue. Negative for chills and fever. HENT: Negative. Eyes: Negative. Respiratory: Positive for cough and shortness of breath. Negative for chest tightness and wheezing. Cardiovascular: Positive for leg swelling. Negative for chest pain and palpitations. Gastrointestinal: Negative. Negative for diarrhea, nausea and vomiting. Endocrine: Negative. Genitourinary: Positive for decreased urine volume. Negative for difficulty urinating, dysuria and hematuria. Musculoskeletal: Positive for myalgias (bilateral leg pain). Skin: Negative. Allergic/Immunologic: Negative. Neurological: Negative. Negative for dizziness, weakness and light-headedness. Hematological: Negative. Physical Exam Filed Vitals: 07/31/24 1527 07/31/24 1600 BP: (!) 136/99 (!) 119/92 Pulse: 84 76 Resp: 16 17 Temp: 97 ??F (36.1 ??C) TempSrc: Temporal SpO2: 97% 96% Weight: 109.8 kg (242 lb 2 oz) Height: 1.676 m (5' 6 ) Vital signs are stable Physical Exam Vitals and nursing note reviewed. Constitutional: General: He is not in acute distress. Appearance: He is ill-appearing (chronically ill-appearing). HENT: Head: Normocephalic and atraumatic. Cardiovascular: Rate and Rhythm: Normal rate. Rhythm irregular. Pulses: Normal pulses. Heart sounds: Normal heart sounds. No murmur heard. Pulmonary: Effort: Pulmonary effort is normal. No respiratory distress. Comments: Diminished breath sounds bilaterally Abdominal: General: Bowel sounds are normal. There is no distension. Palpations: Abdomen is soft. Tenderness: There is no abdominal tenderness. There is no guarding or rebound. Musculoskeletal: Cervical back: Normal range of motion and neck supple. No rigidity or tenderness. Comments: Firm edema to midthigh Skin: General: Skin is warm and dry. Capillary Refill: Capillary refill takes less than 2 seconds. Neurological: General: No focal deficit present. Mental Status: He is alert and oriented to person, place, and time. Psychiatric: Mood and Affect: Mood normal. Behavior: Behavior normal. Diagnostic Studies / Procedures ELECTROCARDIOGRAMS: Results for orders placed or performed during the hospital encounter of 07/31/24 ECG [address] [place] [address] Test Date: 2024-07-31 Pat Name: OBIE SIMS Department: 3 Room: EXAM 404 Gender: Male Flash Welder: : 1955 Requested By: JENA KONG Order Number: [id number] Reading MD: Measurements Intervals Aurora Rate: 67 P: MI: 0 QRS: -24 QRSD: 140 T: 122 QT: 402 QTc: 426 Interpretive Statements ATRIAL FIBRILLATION LEFT BUNDLE BRANCH BLOCK LABORATORY STUDIES: Results for orders placed or performed during the hospital encounter of 07/31/24 CBC W/DIFF AUTOMATED Result Value Ref Range WBC 8.34 4.00 - 10.80 x10'3/uL RBC 3.88 (L) 4.50 - 6.10 x10'6/uL HGB 11.2 (L) 13.0 - 18.0 G/DL HCT 35.0 (L) 37.0 - 52.0 % MCV 90.2 78.0 - 100.0 FL MCH 28.9 27.0 - 31.0 PG MCHC 32.0 (L) 33.0 - 36.0 G/DL RDW 16.0 (H) 11.5 - 14.5 % PLT 82 (L) 150 - 350 x10'3/uL MPV 12.4 (H) 7.4 - 10.4 FL CBC COMMENT NORMAL REFERENCE RANGE NOT ESTABLISHED FOR THE PROPORTIONAL LEUKOCYTE DIFFERENTIAL. NEUTROPHILS % 70.4 % LYMPHOCYTES % 12.0 % MONOCYTES % 13.5 % EOSINOPHILS % 3.5 % BASOPHILS % 0.4 % IMMATURE GRANS % 0.2 % NRBC % 0.0 % ABS. NEUTROPHILS 5.87 1.60 - 8.30 x10'3/uL ABS. LYMPHOCYTES 1.00 0.80 - 4.70 x10'3/uL ABS. MONOCYTES 1.13 0.00 - 1.50 x10'3/uL ABS. EOSINOPHILS 0.29 0.00 - 0.40 x10'3/uL ABS. BASOPHILS 0.03 0.00 - 0.20 x10'3/uL ABS. IMMATURE GRANULOCYTES 0.02 0.00 - 0.03 x10'3/uL ABS. NUCLEATED RBC'S 0.00 0.00 - 0.01 x10'3/uL PROTIME/INR, VENOUS Result Value Ref Range PROTIME 72.6 (H) 9.4 - 12.5 SEC INR 6.4 (HH) 0.8 - 1.0 COMPREHENSIVE METABOLIC PANEL Result Value Ref Range SODIUM S/P/B 133 (L) 136 - 145 MMOL/L POTASSIUM S/P/B 5.2 (H) 3.5 - 5.1 MMOL/L CHLORIDE S/P/B 100 98 - 107 MMOL/L CO2 24.6 21.0 - 32.0 MMOL/L GLUCOSE 73 70 - 99 MG/DL BUN 52 (H) 6 - 24 MG/DL CREATININE S/P/B 1.84 (H) 0.70 - 1.30 MG/DL CALCIUM S/P/B 8.7 8.4 - 10.5 MG/DL BILIRUBIN TOTAL S/P/B 1.0 0.2 - 1.0 MG/DL ALKALINE PHOSPHATASE S/P/B 121 (H) 45 - 115 U/L AST 32 15 - 37 U/L ALT 31 16 - 63 U/L TOTAL PROTEIN S/P/B 7.5 6.4 - 8.2 G/DL ALBUMIN S/P/B 3.3 (L) 3.4 - 5.0 G/DL ANION GAP 8.4 5.0 - 15.0 MMOL/L OSMOLALITY (CALC) 289 MOSM/KG GFR ESTIMATE 39 (L) >89 ML/MIN/1.73 M2 GFR NOTES GFR REFERENCES: TROPONIN, QUANT Result Value Ref Range TROPONIN I HIGH SENSITIVITY 48 0 - 76 ng/L LACTIC ACID W REFLEX (SEPSIS) Result Value Ref Range LACTIC ACID VENOUS 0.4 0.4 - 2.0 MMOL/L MAGNESIUM Result Value Ref Range MAGNESIUM 2.0 1.8 - 2.4 MG/DL PRO-BRAIN NATRIURETIC PEPTIDE Result Value Ref Range PRO-B TYPE NATRIURETIC PEPTIDE 2,996 (H) <125 PG/ML IMAGING STUDIES XR CHEST PORTABLE Final Result by User, [id number] (07/31 1622) [facility] [address] [place] [address] Examination: Portable chest. Exam time: 1523 hours. Clinical history: Dyspnea. CHF. Comparison: 05/02/2024. Technique: AP upright view. Findings: Allowing for differences in projection and rotation, the cardiomediastinal silhouette is stable. The heart remains enlarged. Changes from median sternotomy and aortic valve replacement noted. There is now pulmonary vascular congestion with perivascular haziness and interstitial prominence, compatible with interstitial edema. No confluent infiltrates or effusions are identified. The visualized bony thorax is stable. Plate and screw fusion in the lower cervical spine again evident. IMPRESSION: Cardiomegaly with new congestive changes as described. No focal infiltrates. Ordered By: JENA KONG Interpreted By: Nicko Portillo MD, 07/31/2024 4:12 PM ED Course / Medical Decision Making Medical Decision Making ED Course as of 07/31/24 1725 WedJul 31, 2024 1539 Differential diagnosis of COPD, CHF exacerbation, pneumonia, kidney injury, electrolyte abnormality, sepsis, urinary tract infection, coagulopathy, [facility] previous [facility]izations, cardiology notes and echocardiogram have been reviewed Patient will be given Lasix and 1 Ophelia here EKG independently interpreted by me as atrial fibrillation with a rate of 67. No acute ST elevation. There is a left bundle branch block. [MA] 1617 CBC with chronic anemia and slightly worsening thrombocytopenia. BNP is elevated to almost 3000. Troponin is normal. Chemistry with elevated BUN and creatinine which is chronic. Lactic acid is normal. Magnesium is normal. INR is supratherapeutic at 6.4. [MA] 1630 Patient urinated 720 cc. Chest x-ray is consistent with CHF. Patient demonstrating significantdyspnea with standing to use the restroom. Will plan for admission. [MA] 1720 D/w Dr. Mathur who will accept patient. [MA] ED Course User Index [MA] Jena Kong MD Clinical Impression Shortness of breath (Primary) CHF exacerbation ([facility] HHS/HCC) CKD (chronic kidney disease) Chronic pain Hyperkalemia Disposition: Admit Jena Kong MD 07/31/24 172 IFIED EMERGENCY VEHICLE TECHNICIAN documented in this encounter Plan of Treatment Upcoming Encounters Date Type Department Care Team (Late st Contact Info) Description 09/25/2024 2:00 PM CERTIFIED EMERGENCY VEHICLE TECHNICIAN Appointment [facility] [address] [address] Zayra Powell, [facility] [address] [place] [address] 10/16/2024 3:30 PM CERTIFIED EMERGENCY VEHICLE TECHNICIAN Office Visit [facility] [address] [place] [address] Brit Gonzáles MD [address] [place], [place] [id number] Scheduled Referrals Name Type Priority Associated Diagnoses Orde r Schedule Ambulatory referral to Physical Therapy Referral Routine Chronic combined systolic and diastolic congestive heart failure ([facility]) Ordered: 08/02/2024 documented as of this encounter Goals Goal Patient Goal Type Associated Problems Recent Progress Patient-Stated? Author Family - family caregiver with be involved in care transitions and discharge planning Lifestyle No Karen Quezada RN documented as of this encounter Procedures Procedure Name Priority Date/Time Associated Diagnosis Comments POCT GLUCOSE - VALLECILLO DOCKED DEVICE Routine 08/03/2024 11:14 AM CERTIFIED EMERGENCY VEHICLE TECHNICIAN POCT GLUCOSE - VALLECILLO DOCKED DEVICE Routine 08/03/2024 6:56 AM CERTIFIED EMERGENCY VEHICLE TECHNICIAN POCT GLUCOSE - VALLECILLO DOCKED DEVICE Routine 08/03/2024 6:40 AM CERTIFIED EMERGENCY VEHICLE TECHNICIAN POCT GLUCOSE - VALLECILLO DOCKED DEVICE Routine 08/03/2024 6:19 AM CERTIFIED EMERGENCY VEHICLE TECHNICIAN PROTHROMBIN TIME, VENOUS Routine 08/03/2024 5:46 AM CERTIFIED EMERGENCY VEHICLE TECHNICIAN COMPREHENSIVE METABOLIC PANEL Routine 08/03/2024 5:46 AM CERTIFIED EMERGENCY VEHICLE TECHNICIAN CBC W/DIFF AUTOMATED Routine 08/03/2024 5:46 AM CERTIFIED EMERGENCY VEHICLE TECHNICIAN POCT GLUCOSE - VALLECILLO DOCKED DEVICE Routine 08/02/2024 8:14 PM CERTIFIED EMERGENCY VEHICLE TECHNICIAN POCT GLUCOSE - VALLECILLO DOCKED DEVICE Routine 08/02/2024 4:10 PM CERTIFIED EMERGENCY VEHICLE TECHNICIAN POCT GLUCOSE - VALLECILLO DOCKED DEVICE Routine 08/02/2024 10:59 AM CERTIFIED EMERGENCY VEHICLE TECHNICIAN POCT GLUCOSE - VALLECILLO DOCKED DEVICE Routine 08/02/2024 6:20 AM CERTIFIED EMERGENCY VEHICLE TECHNICIAN PROTHROMBIN TIME, VENOUS Routine 08/02/2024 5:13 AM CERTIFIED EMERGENCY VEHICLE TECHNICIAN COMPREHENSIVE METABOLIC PANEL Routine 08/02/2024 5:13 AM CERTIFIED EMERGENCY VEHICLE TECHNICIAN CBC W/DIFF AUTOMATED Routine 08/02/2024 5:13 AM CERTIFIED EMERGENCY VEHICLE TECHNICIAN POCT GLUCOSE - VALLECILLO DOCKED DEVICE Routine 08/01/2024 8:50 PM CERTIFIED EMERGENCY VEHICLE TECHNICIAN POCT GLUCOSE - VALLECILLO DOCKED DEVICE Routine 08/01/2024 6:28 PM CERTIFIED EMERGENCY VEHICLE TECHNICIAN POCT GLUCOSE - VALLECILLO DOCKED DEVICE Routine 08/01/2024 5:09 PM CERTIFIED EMERGENCY VEHICLE TECHNICIAN POCT GLUCOSE - VALLECILLO DOCKED DEVICE Routine 08/01/2024 11:53 AM CERTIFIED EMERGENCY VEHICLE TECHNICIAN POCT GLUCOSE - VALLECILLO DOCKED DEVICE Routine 08/01/2024 7:39 AM CERTIFIED EMERGENCY VEHICLE TECHNICIAN POCT GLUCOSE - VALLECILLO DOCKED DEVICE Routine 08/01/2024 6:56 AM CERTIFIED EMERGENCY VEHICLE TECHNICIAN POCT GLUCOSE - VALLECILLO DOCKED DEVICE Routine 08/01/2024 6:35 AM CERTIFIED EMERGENCY VEHICLE TECHNICIAN PROTHROMBIN TIME, VENOUS STAT 08/01/2024 5:24 AM CERTIFIED EMERGENCY VEHICLE TECHNICIAN BASIC METABOLIC PANEL Routine 08/01/2024 5:24 AM CERTIFIED EMERGENCY VEHICLE TECHNICIAN CBC W/DIFF AUTOMATED STAT 08/01/2024 5:24 AM CERTIFIED EMERGENCY VEHICLE TECHNICIAN POCT GLUCOSE - VALLECILLO DOCKED DEVICE Routine 07/31/2024 8:41 PM CERTIFIED EMERGENCY VEHICLE TECHNICIAN POCT GLUCOSE - VALLECILLO DOCKED DEVICE Routine 07/31/2024 6:13 PM CERTIFIED EMERGENCY VEHICLE TECHNICIAN HC URINALYSIS AUTO W/MICRO STAT 07/31/2024 4:57 PM CERTIFIED EMERGENCY VEHICLE TECHNICIAN URINE BACTERIA CULTURE STAT 4:57 PM CERTIFIED EMERGENCY VEHICLE TECHNICIAN XR CHEST PORTABLE STAT 07/31/2024 3:5 5 PM CERTIFIED EMERGENCY VEHICLE TECHNICIAN CULTURE, BACTERIA, BLOOD STAT 07/31/2024 3:43 PM CERTIFIED EMERGENCY VEHICLE TECHNICIAN LACTIC ACID W REFLEX (SEPSIS) STAT 07/31/2024 3:36 PM CERTIFIED EMERGENCY VEHICLE TECHNICIAN PRO-BRAIN NATRIURETIC PEPTIDE STAT 07/31/2024 3:36 PM CERTIFIED EMERGENCY VEHICLE TECHNICIAN PROTHROMBIN TIME, VENOUS STAT 07/31/2024 3:36 PM CERTIFIED EMERGENCY VEHICLE TECHNICIAN COMPREHENSIVE METABOLIC PANEL STAT 07/31/2024 3:36 PM CERTIFIED EMERGENCY VEHICLE TECHNICIAN CBC W/DIFF AUTOMATED STAT 07/31/2024 3:36 PM CERTIFIED EMERGENCY VEHICLE TECHNICIAN TROPONIN, QUANT STAT 07/31/2024 3:36 PM CERTIFIED EMERGENCY VEHICLE TECHNICIAN MAGNESIUM STAT 07/31/2024 3:36 PM CERTIFIED EMERGENCY VEHICLE TECHNICIAN ECG 12-LEAD Routine 07/31/2024 3:32 PM CERTIFIED EMERGENCY VEHICLE TECHNICIAN documented in this encounter Results * POCT glucose (08/03/2024 11:14 AM CERTIFIED EMERGENCY VEHICLE TECHNICIAN) GLUCOSE POC 88 70 - 99 MG/DL 08/03/2024 11:21 AM CERTIFIED EMERGENCY VEHICLE TECHNICIAN [facility] 08/03/2024 11:1 4 AM CERTIFIED EMERGENCY VEHICLE TECHNICIAN us Megan Infante MD POCT ORDERABLES - DEVICE Final R esult Performing Organization Address [facility]/ZIP Co de Phone Number [facility] [address] [place] [address], [place] [phone] * (ABNORMAL) POCT glucose (08/03/2024 6:56 AM CERTIFIED EMERGENCY VEHICLE TECHNICIAN) GLUCOSE POC 101(H) 70 - 99 MG/DL 08/03/2024 6:58 AM CERTIFIED EMERGENCY VEHICLE TECHNICIAN [facility] 08/03/2024 6:56 AM CERTIFIED EMERGENCY VEHICLE TECHNICIAN us Megan Infante MD POCT ORDERABLES - DEVICE Final R esult Performing Organization Address [facility] Co de Phone Number [facility] [address] [place] [address], [place] [phone] * (ABNORMAL) POCT glucose (08/03/2024 6:40 AM CERTIFIED EMERGENCY VEHICLE TECHNICIAN) GLUCOSE POC 67(L) 70 - 99 MG/DL 08/03/2024 6:42 AM CERTIFIED EMERGENCY VEHICLE TECHNICIAN [facility] 08/03/2024 6:40 AM CERTIFIED EMERGENCY VEHICLE TECHNICIAN us Megan Infante MD POCT ORDERABLES - DEVICE Final R esult Performing Organization Address City/[facility]/ZIP Co de Phone Number [facility] [address] [place] [address], [place] [phone] * (ABNORMAL) POCT glucose (08/03/2024 6:19 AM CERTIFIED EMERGENCY VEHICLE TECHNICIAN) GLUCOSE POC 52(L) 70 - 99 MG/DL 08/03/2024 6:21 AM [facility] 08/03/2024 6:19 AM CERTIFIED EMERGENCY VEHICLE TECHNICIAN Megan Infante MD POCT ORDERABLES - DEVICE Final R esult [facility] [address] [place] [address], * (ABNORMAL) COMPREHENSIVE METABOLIC PANEL (08/03/2024 5:46 AM CERTIFIED EMERGENCY VEHICLE TECHNICIAN) SODIUM S/P/B 139 136 - 145 MMOL/L 08/03/2024 6:14 AM [facility] POTASSIUM S/P/B 4.5 3.5 - 5.1 MMOL/L 08/03/2024 6:14 AM [facility] CHLORIDE S/P/B 103 98 - 107 MMOL/L 08/03/2024 6:14 AM [facility] CO2 27.5 21.0 - 32.0 MMOL/L 08/03/2024 6:14 AM [facility] GLUCOSE 66(L) 70 - 99 MG/DL 08/03/2024 6:14 AM [facility] Comment: FASTING GLUCOSE 100 TO 125 MG/DL IS CONSISTENT WITH IMPAIRED FASTING GLUCOSE. FASTING GLUCOSE >125 MG/DL IS CONSISTENT WITH DIABETES. RANDOM GLUCOSE >200 MG/DL WITH HYPERGLYCEMIC SYMPTOMS IS CONSISTENT WITH DIABETES. PER ADA GUIDELINES BUN 46(H) 6 - 24 MG/DL 08/03/2024 6:14 AM [facility] CREATININE S/P/B 1.77(H) 0.70 - 1.30 MG/DL 08/03/2024 6:14 AM [facility] CALCIUM S/P/B 8.9 8.4 - 10.5 MG/DL 08/03/2024 6:14 AM [facility] BILIRUBIN TOTAL S/P/B 1.1(H) 0.2 - 1.0 MG/DL 08/03/2024 6:14 AM [facility] Comment: THIS ASSAY IS NOT RECOMMENDED FOR PATIENTS UNDERGOING TREATMENT WITH ELTROMBOPAG DUE TO THE POTENTIAL FOR FALSELY ELEVATED RESULTS. ALKALINE PHOSPHATASE S/P/B 113 45 - 115 U/L 08/03/2024 6:14 AM [facility] AST 26 15 - 37 U/L 08/03/2024 6:14 AM [facility] ALT 26 16 - 63 U/L 08/03/2024 6:14 AM [facility] TOTAL PROTEIN S/P/B 7.4 6.4 - 8.2 G/DL 08/03/2024 6:14 AM [facility] ALBUMIN S/P/B 3.1(L) 3.4 - 5.0 G/DL 08/03/2024 6:14 AM [facility] ANION GAP 8.5 5.0 - 15.0 MMOL/L 08/03/2024 6:14 AM [facility] OSMOLALITY (CALC) 298 MOSM/KG 024 6:14 AM [facility] Comment:REFERENCE RANGE NOT ESTABLISHED GFR ESTIMATE 41(L) >89 ML/MIN/1. 73 M2 08/03/2024 6:14 AM [facility] GFR NOTES GFR REFERENCE S: 08/03/2024 6:14 AM [facility] Comment: THE ESTIMATED GFR IS CALCULATED [...] ml/min/1.73 m2 G5,KIDNEY FAILURE: <15 ml/min/1.73 m2 08/03/2024 5:46 AM CERTIFIED EMERGENCY VEHICLE TECHNICIAN us Sapphirearcaelis Peterson NP LABORATORY Final Result [facility] [address] [place] [address], * (ABNORMAL) CBC W/DIFF AUTOMATED (08/03/2024 5:46 AM CERTIFIED EMERGENCY VEHICLE TECHNICIAN) WBC 8.37 4.00 - 10.80 x10'3/uL 08/03/2024 6:00 AM CERTIFIED EMERGENCY VEHICLE TECHNICIAN [facility] RBC 4.00(L) 4.50 - 6.10 x10'6/uL 08/03/2024 6:00 AM [facility] HGB 11.5(L) 13.0 - 18.0 G/DL 08/03/2024 6:00 AM [facility] HCT 36.6(L) 37.0 - 52.0 % 08/03/2024 6:00 AM [facility] MCV 91.5 78.0 - 100.0 FL 08/03/2024 6:00 AM [facility] MCH 28.8 27.0 - 31.0 PG 08/03/2024 6:00 AM [facility] MCHC 31.4(L) 33.0 - 36.0 G/DL 08/03/2024 6:00 AM [facility] RDW 15.9(H) 11.5 - 14.5 % 08/03/2024 6:00 AM [facility] PLT 114(L) 150 - 350 x10'3/uL 08/03/2024 6:00 AM [facility] MPV 12.8(H) 7.4 - 10.4 FL 08/03/2024 6:00 AM [facility] CBC COMMENT NORMAL REFERENCE RANGE NOT ESTABLISHED FOR THE PROPORTIONAL LEUKOCYTE DIFFERENTIAL. 08/03/2024 6:00 AM [facility] NEUTROPHILS % 62.2 % 08/03/2024 6:00 AM [facility] LYMPHOCYTES % 15.9 % 08/03/2024 6:00 AM [facility] MONOCYTES % 14.9 % 08/03/2024 6:00 AM [facility] EOSINOPHILS % 6.3 % 08/03/2024 6:00 AM CERTIFIED EMERGENCY VEHICLE TECHNICIAN [facility] BASOPHILS % 0.5 % 08/03/2024 6:00 AM [facility] IMMATURE GRANS % 0.2 % 08/03/20 6:00 AM CERTIFIED EMERGENCY VEHICLE TECHNICIAN [facility] NRBC % 0.0 % 08/03/2024 6:00 AM CERTIFIED EMERGENCY VEHICLE TECHNICIAN [facility] ABS. NEUTROPHILS 5.20 1.60 - 8.30 x10'3/uL 08/03/2024 6:00 AM CERTIFIED EMERGENCY VEHICLE TECHNICIAN [facility] ABS. LYMPHOCYTES 1.33 0.80 - 4.70 x10'3/uL 08/03/2024 6:00 AM [facility] ABS. MONOCYTES 1.25 0.00 - 1.50 x10'3/uL 08/03/2024 6:00 AM CERTIFIED EMERGENCY VEHICLE TECHNICIAN [facility] ABS. EOSINOPHILS 0.53(H) 0.00 - 0.40 x10'3/uL 08/03/2024 6:00 AM CERTIFIED EMERGENCY VEHICLE TECHNICIAN [facility] ABS. BASOPHILS 0.04 0.00 - 0.20 x10'3/uL 08/03/2024 6:00 AM [facility] ABS. IMMATURE GRANULOCYTES 0.02 0.00 - 0.03 x10'3/uL 08/03/2024 6:00 AM [facility] ABS. NUCLEATED RBC'S 0.00 0.00 - 0.01 x10'3/uL 08/03/2024 6:00 AM [facility] 08/03/2024 5:46 AM CERTIFIED EMERGENCY VEHICLE TECHNICIAN us Sapphire Peterson NP LABORATORY Final Result [facility] [address] [place] [address], * (ABNORMAL) PROTIME/INR, VENOUS (08/03/2024 5:46 AM CERTIFIED EMERGENCY VEHICLE TECHNICIAN) PROTIME 18.6(H) 9.4 - 12.5 SEC 08/03/2024 6:04 AM CERTIFIED EMERGENCY VEHICLE TECHNICIAN [facility] INR 1.6(H) 0.8 - 1.0 08/03/2024 6:04 AM CERTIFIED EMERGENCY VEHICLE TECHNICIAN [facility] 08/03/2024 5:46 AM CERTIFIED EMERGENCY VEHICLE TECHNICIAN us Megan Infante MD LABORATORY Final Result Performing Organization Address City/[facility]/ZIP Co de Phone Number [facility] [address] [place] [address], [place] [phone] * (ABNORMAL) POCT glucose (08/02/2024 8:14 PM CERTIFIED EMERGENCY VEHICLE TECHNICIAN) GLUCOSE POC 170(H) 70 - 99 MG/DL 08/02/2024 8:16 PM CERTIFIED EMERGENCY VEHICLE TECHNICIAN [facility] 08/02/2024 8:14 PM CERTIFIED EMERGENCY VEHICLE TECHNICIAN us Megan Infante MD POCT ORDERABLES - DEVICE Final R esult Performing Organization Address [facility] Co de Phone Number [facility] [address] [place] [address], [place] [phone] * (ABNORMAL) POCT glucose (08/02/2024 4:10 PM CERTIFIED EMERGENCY VEHICLE TECHNICIAN) GLUCOSE POC 142(H) 70 - 99 MG/DL 08/02/2024 4:14 PM CERTIFIED EMERGENCY VEHICLE TECHNICIAN [facility] 08/02/2024 4:10 PM CERTIFIED EMERGENCY VEHICLE TECHNICIAN us Megan Infante MD POCT ORDERABLES - DEVICE Final R esult Performing Organization Address [facility] Co de Phone Number [facility] [address] [place] [address], [place] [phone] * (ABNORMAL) POCT glucose (08/02/2024 10:59 AM CERTIFIED EMERGENCY VEHICLE TECHNICIAN) GLUCOSE POC 150(H) 70 - 99 MG/DL 08/04/2024 1:47 AM CERTIFIED EMERGENCY VEHICLE TECHNICIAN [facility] Comment:Value Noted, No Miri tment Given 08/02/2024 10:5 9 AM CERTIFIED EMERGENCY VEHICLE TECHNICIAN us Megan Infante MD POCT ORDERABLES - DEVICE Final R esult Performing Organization Address [facility]/ZIP Co de Phone Number [facility] [address] [place] [address], * POCT glucose (08/02/2024 6:20 AM CERTIFIED EMERGENCY VEHICLE TECHNICIAN) GLUCOSE POC 95 70 - 99 MG/DL 08/02/2024 6:24 AM CERTIFIED EMERGENCY VEHICLE TECHNICIAN [facility] 08/02/2024 6:20 AM CERTIFIED EMERGENCY VEHICLE TECHNICIAN us Megan Infante MD POCT ORDERABLES - DEVICE Final R esult Performing Organization Address [facility] Co de Phone Number [facility] [address] [place] [address], [place] [phone] * (ABNORMAL) COMPREHENSIVE METABOLIC PANEL (08/02/2024 5:13 AM CERTIFIED EMERGENCY VEHICLE TECHNICIAN) SODIUM S/P/B 137 136 - 145 MMOL/L 08/02/2024 5:59 AM CERTIFIED EMERGENCY VEHICLE TECHNICIAN [facility] POTASSIUM S/P/B 4.8 3.5 - 5.1 MMOL/L 08/02/2024 5:59 AM CERTIFIED EMERGENCY VEHICLE TECHNICIAN [facility] CHLORIDE S/P/B 102 98 - 107 MMOL/L 08/02/2024 5:59 AM CERTIFIED EMERGENCY VEHICLE TECHNICIAN [facility] CO2 28.6 21.0 - 32.0 MMOL/L 08/02/2024 5:59 AM CERTIFIED EMERGENCY VEHICLE TECHNICIAN [facility] GLUCOSE 103(H) 70 - 99 MG/DL 08/02/2024 5:59 AM CERTIFIED EMERGENCY VEHICLE TECHNICIAN [facility] Comment: FASTING GLUCOSE 100 TO 125 MG/DL IS CONSISTENT WITH IMPAIRED FASTING GLUCOSE. FASTING GLUCOSE >125 MG/DL IS CONSISTENT WITH DIABETES. RANDOM GLUCOSE >200 MG/DL WITH HYPERGLYCEMIC SYMPTOMS IS CONSISTENT WITH DIABETES. PER ADA GUIDELINES BUN 45(H) 6 - 24 MG/DL 08/02/2024 5:59 AM [facility] CREATININE S/P/B 1.75(H) 0.70 - 1.30 MG/DL 08/02/2024 5:59 AM [facility] CALCIUM S/P/B 9.1 8.4 - 10.5 MG/DL 08/02/2024 5:59 AM [facility] BILIRUBIN TOTAL S/P/B 1.4(H) 0.2 - 1.0 MG/DL 08/02/2024 5:59 AM [facility] Comment: THIS ASSAY IS NOT RECOMMENDED FOR PATIENTS UNDERGOING TREATMENT WITH ELTROMBOPAG DUE TO THE POTENTIAL FOR FALSELY ELEVATED RESULTS. ALKALINE PHOSPHATASE S/P/B 118(H) 45 - 115 U/L 08/02/2024 5:59 AM [facility] AST 27 15 - 37 U/L 08/02/2024 5:59 AM [facility] ALT 25 16 - 63 U/L 08/02/2024 5:59 AM [facility] TOTAL PROTEIN S/P/B 7.2 6.4 - 8.2 G/DL 08/02/2024 5:59 AM [facility] ALBUMIN S/P/B 3.1(L) 3.4 - 5.0 G/DL 08/02/2024 5:59 AM [facility] ANION GAP 6.4 5.0 - 15.0 MMOL/L 08/02/2024 5:59 AM [facility] OSMOLALITY (CALC) 296 MOSM/KG 024 5:59 AM [facility] Comment:REFERENCE RANGE NOT ESTABLISHED GFR ESTIMATE 42(L) >89 ML/MIN/1. 73 M2 08/02/2024 5:59 AM [facility] GFR NOTES GFR REFERENCE S: 08/02/2024 5:59 AM [facility] Comment: THE ESTIMATED GFR IS CALCULATED [...] ml/min/1.73 m2 G5,KIDNEY FAILURE: <15 ml/min/1.73 m2 08/02/2024 5:13 AM CERTIFIED EMERGENCY VEHICLE TECHNICIAN us Sapphire Peterson NP LABORATORY Final Result [facility] [address] [place] [place] [address], * (ABNORMAL) CBC W/DIFF AUTOMATED (08/02/2024 5:13 AM CERTIFIED EMERGENCY VEHICLE TECHNICIAN) WBC 8.86 4.00 - 10.80 x10'3/uL 08/02/2024 5:48 AM CERTIFIED EMERGENCY VEHICLE TECHNICIAN [facility] RBC 3.95(L) 4.50 - 6.10 x10'6/uL 08/02/2024 5:48 AM CERTIFIED EMERGENCY VEHICLE TECHNICIAN [facility] HGB 11.5(L) 13.0 - 18.0 G/DL 08/02/2024 5:48 AM CERTIFIED EMERGENCY VEHICLE TECHNICIAN [facility] HCT 35.7(L) 37.0 - 52.0 % 08/02/2024 5:48 AM CERTIFIED EMERGENCY VEHICLE TECHNICIAN [facility] MCV 90.4 78.0 - 100.0 FL 08/02/2024 5:48 AM CERTIFIED EMERGENCY VEHICLE TECHNICIAN [facility] MCH 29.1 27.0 - 31.0 PG 08/02/2024 5:48 AM CERTIFIED EMERGENCY VEHICLE TECHNICIAN [facility] MCHC 32.2(L) 33.0 - 36.0 G/DL 08/02/2024 5:48 AM CERTIFIED EMERGENCY VEHICLE TECHNICIAN [facility] RDW 15.9(H) 11.5 - 14.5 % 08/02/2024 5:48 AM [facility] PLT 98(L) 150 - 350 x10'3/uL 08/02/2024 5:48 AM [facility] MPV 13.0(H) 7.4 - 10.4 FL 08/02/2024 5:48 AM [facility] CBC COMMENT NORMAL REFERENCE RANGE NOT ESTABLISHED FOR THE PROPORTIONAL LEUKOCYTE DIFFERENTIAL. 08/02/2024 5:48 AM [facility] NEUTROPHILS % 65.8 % 08/02/2024 5:54 AM [facility] LYMPHOCYTES % 14.2 % 08/02/2024 5:54 AM [facility] MONOCYTES % 14.2 % 08/02/2024 5:54 AM [facility] EOSINOPHILS % 5.2 % 08/02/2024 5:54 AM [facility] BASOPHILS % 0.3 % 08/02/2024 5:54 AM [facility] IMMATURE GRANS % 0.3 % 08/02/20 5:54 AM [facility] NRBC % 0.0 % 08/02/2024 5:54 AM [facility] ABS. NEUTROPHILS 5.82 1.60 - 8.30 x10'3/uL 08/02/2024 5:54 AM [facility] ABS. LYMPHOCYTES 1.26 0.80 - 4.70 x10'3/uL 08/02/2024 5:54 AM [facility] ABS. MONOCYTES 1.26 0.00 - 1.50 x10'3/uL 08/02/2024 5:54 AM [facility] ABS. EOSINOPHILS 0.46(H) 0.00 - 0.40 x10'3/uL 08/02/2024 5:54 AM [facility] ABS. BASOPHILS 0.03 0.00 - 0.20 x10'3/uL 08/02/2024 5:54 AM [facility] ABS. IMMATURE GRANULOCYTES 0.03 0.00 - 0.03 x10'3/uL 08/02/2024 5:54 AM [facility] ABS. NUCLEATED RBC'S 0.00 0.00 - 0.01 x10'3/uL 08/02/2024 5:54 AM CERTIFIED EMERGENCY VEHICLE TECHNICIAN [facility] PLT MORPH. DECREASED 08/02/2024 5:54 AM CERTIFIED EMERGENCY VEHICLE TECHNICIAN [facility] RBC MORPHOLOGY 1+ 08/02/2024 5:54 AM CERTIFIED EMERGENCY VEHICLE TECHNICIAN [facility] Comment:ANISOCYTOSIS 08/02/2024 5:13 AM CERTIFIED EMERGENCY VEHICLE TECHNICIAN Sapphire Peterson NP LABORATORY Final Result Performing Organization Address [facility]/[place] [address], * (ABNORMAL) PROTIME/INR, VENOUS (08/02/2024 5:13 AM CERTIFIED EMERGENCY VEHICLE TECHNICIAN) PROTIME 37.1(H) 9.4 - 12.5 SEC 08/02/2024 5:56 AM CERTIFIED EMERGENCY VEHICLE TECHNICIAN [facility] INR 3.3(H) 0.8 - 1.0 08/02/2024 5:56 AM CERTIFIED EMERGENCY VEHICLE TECHNICIAN [facility] 08/02/2024 5:13 AM CERTIFIED EMERGENCY VEHICLE TECHNICIAN us Megan Infante MD LABORATORY Final Result Performing Organization Address [facility] [place] [address], * (ABNORMAL) POCT glucose (08/01/2024 8:50 PM CERTIFIED EMERGENCY VEHICLE TECHNICIAN) GLUCOSE POC 145(H) 70 - 99 MG/DL 08/01/2024 8:54 PM CERTIFIED EMERGENCY VEHICLE TECHNICIAN [facility] 08/01/2024 8:50 PM CERTIFIED EMERGENCY VEHICLE TECHNICIAN us Megan Infante MD POCT ORDERABLES - DEVICE Final R esult Performing Organization Address City/[facility]/ZIP Co de Phone Number [facility] [address] [place] [address], * (ABNORMAL) POCT glucose (08/01/2024 6:28 PM CERTIFIED EMERGENCY VEHICLE TECHNICIAN) GLUCOSE POC 184(H) 70 - 99 MG/DL 08/01/2024 6:30 PM CERTIFIED EMERGENCY VEHICLE TECHNICIAN [facility] 08/01/2024 6:28 PM CERTIFIED EMERGENCY VEHICLE TECHNICIAN us Megan Infante MD POCT ORDERABLES - DEVICE Final R esult [facility] [address] [place] [id number], * (ABNORMAL) POCT glucose (08/01/2024 5:09 PM CERTIFIED EMERGENCY VEHICLE TECHNICIAN) GLUCOSE POC 52(L) 70 - 99 MG/DL 08/01/2024 5:11 PM CERTIFIED EMERGENCY VEHICLE TECHNICIAN [facility] 08/01/2024 5:09 PM CERTIFIED EMERGENCY VEHICLE TECHNICIAN us Megan Infante MD POCT ORDERABLES - DEVICE Final R esult Performing Organization Address City/[facility]/ZIP Co de Phone Number [facility] [address] [place] [id number], * (ABNORMAL) POCT glucose (08/01/2024 11:53 AM CERTIFIED EMERGENCY VEHICLE TECHNICIAN) GLUCOSE POC 60(L) 70 - 99 MG/DL 08/01/2024 12:03 PM CERTIFIED EMERGENCY VEHICLE TECHNICIAN [facility] 08/01/2024 11:5 3 AM CERTIFIED EMERGENCY VEHICLE TECHNICIAN us Megan Infante MD POCT ORDERABLES - DEVICE Final R esult Performing Organization Address City/[facility]/ZIP Co de Phone Number [facility] [address] [place] [address], * (ABNORMAL) POCT glucose (08/01/2024 7:39 AM CERTIFIED EMERGENCY VEHICLE TECHNICIAN) GLUCOSE POC 133(H) 70 - 99 MG/DL 08/01/2024 7:40 AM CERTIFIED EMERGENCY VEHICLE TECHNICIAN [facility] 08/01/2024 7:39 AM CERTIFIED EMERGENCY VEHICLE TECHNICIAN us Megan Infante MD POCT ORDERABLES - DEVICE Final R esult Performing Organization Address [facility]/ZIP Co de Phone Number [facility] [address] [place] [address], [place] [phone] * (ABNORMAL) POCT glucose (08/01/2024 6:56 AM CERTIFIED EMERGENCY VEHICLE TECHNICIAN) GLUCOSE POC 68(L) 70 - 99 MG/DL 08/01/2024 6:57 AM CERTIFIED EMERGENCY VEHICLE TECHNICIAN [facility] 08/01/2024 6:56 AM CERTIFIED EMERGENCY VEHICLE TECHNICIAN us Megan Infante MD POCT ORDERABLES - DEVICE Final R esult Performing Organization Address [facility] Co de Phone Number [facility] [address] [place] [address], [place] [phone] * (ABNORMAL) POCT glucose (08/01/2024 6:35 AM CERTIFIED EMERGENCY VEHICLE TECHNICIAN) GLUCOSE POC 44(L) 70 - 99 MG/DL 08/01/2024 6:37 AM CERTIFIED EMERGENCY VEHICLE TECHNICIAN [facility] Comment:Value Noted, No Miri tment Given 08/01/2024 6:35 AM CERTIFIED EMERGENCY VEHICLE TECHNICIAN us Megan Infante MD POCT ORDERABLES - DEVICE Final R esult Performing Organization Address [facility] Co de Phone Number [facility] [address] [place] [address], [place] [phone] * (ABNORMAL) PROTIME/INR, VENOUS (08/01/2024 5:24 AM CERTIFIED EMERGENCY VEHICLE TECHNICIAN) PROTIME 73.5(H) 9.4 - 12.5 SEC 08/01/2024 6:03 AM [facility] INR 6.5(HH) 0.8 - 1.0 08/01/2024 6:03 AM [facility] Comment: CRITICAL VALUE CRITICAL VALUE VERIFIED, CALLED TO, AND READ BACK BY: HUMA INFANTE [id number] 08/01/2024 5:24 AM CERTIFIED EMERGENCY VEHICLE TECHNICIAN us Jena Kong MD LABORATORY Final Resul t [facility] [address] [place] [place] [address], * (ABNORMAL) BASIC METABOLIC PANEL (08/01/2024 5:24 AM CERTIFIED EMERGENCY VEHICLE TECHNICIAN) SODIUM S/P/B 137 136 - 145 MMOL/L 08/01/2024 6:32 AM [facility] POTASSIUM S/P/B 4.6 3.5 - 5.1 MMOL/L 08/01/2024 6:32 AM [facility] CHLORIDE S/P/B 103 98 - 107 MMOL/L 08/01/2024 6:32 AM [facility] CO2 27.2 21.0 - 32.0 MMOL/L 08/01/2024 6:32 AM [facility] GLUCOSE 48(LL) 70 - 99 MG/DL 08/01/2024 6:32 AM [facility] Comment: Critical Result(s) Called to and read back by: STEPHEN TRUJILLO ?? at: 06:31:27 ?? 08/01/2024 by ETCR. FASTING GLUCOSE 100 TO 125 MG/DL IS CONSISTENT WITH IMPAIRED FASTING GLUCOSE. FASTING GLUCOSE >125 MG/DL IS CONSISTENT WITH DIABETES. RANDOM GLUCOSE >200 MG/DL WITH HYPERGLYCEMIC SYMPTOMS IS CONSISTENT WITH DIABETES. PER [employer] GUIDELINES BUN 51(H) 6 - 24 MG/DL 08/01/2024 6:32 AM [facility] CREATININE S/P/B 1.72(H) 0.70 - 1.30 MG/DL 08/01/2024 6:32 AM [facility] CALCIUM S/P/B 8.7 8.4 - 10.5 MG/DL 08/01/2024 6:32 AM CERTIFIED EMERGENCY VEHICLE TECHNICIAN [facility] ANION GAP 6.8 5.0 - 15.0 MMOL/L 08/01/2024 6:32 AM [facility] OSMOLALITY (CALC) 295 MOSM/KG 024 6:32 AM [facility] Comment:REFERENCE RANGE NOT ESTABLISHED GFR ESTIMATE 42(L) >89 ML/MIN/1. 73 M2 08/01/2024 6:32 AM [facility] GFR NOTES GFR REFERENCE S: 08/01/2024 6:32 AM [facility] Comment: THE ESTIMATED GFR IS CALCULATED [...] FAILURE: <15 ml/min/1.73 m2 08/01/2024 5:24 AM CERTIFIED EMERGENCY VEHICLE TECHNICIAN us Jena Kong MD LABORATORY Final Resul t [facility] [address] [place] [address], * (ABNORMAL) CBC W/DIFF AUTOMATED (08/01/2024 5:24 AM CERTIFIED EMERGENCY VEHICLE TECHNICIAN) WBC 8.21 4.00 - 10.80 x10'3/uL 08/01/2024 5:51 AM CERTIFIED EMERGENCY VEHICLE TECHNICIAN [facility] RBC 3.81(L) 4.50 - 6.10 x10'6/uL 08/01/2024 5:51 AM CERTIFIED EMERGENCY VEHICLE TECHNICIAN [facility] HGB 11.1(L) 13.0 - 18.0 G/DL 08/01/2024 5:51 AM [facility] HCT 34.5(L) 37.0 - 52.0 % 08/01/2024 5:51 AM [facility] MCV 90.6 78.0 - 100.0 FL 08/01/2024 5:51 AM [facility] MCH 29.1 27.0 - 31.0 PG 08/01/2024 5:51 AM [facility] MCHC 32.2(L) 33.0 - 36.0 G/DL 08/01/2024 5:51 AM [facility] RDW 16.0(H) 11.5 - 14.5 % 08/01/2024 5:51 AM [facility] PLT 87(L) 150 - 350 x10'3/uL 08/01/2024 5:51 AM [facility] MPV 13.5(H) 7.4 - 10.4 FL 08/01/2024 5:51 AM [facility] CBC COMMENT NORMAL REFERENCE RANGE NOT ESTABLISHED FOR THE PROPORTIONAL LEUKOCYTE DIFFERENTIAL. 08/01/2024 5:51 AM [facility] NEUTROPHILS % 66.7 % 08/01/2024 6:00 AM [facility] LYMPHOCYTES % 12.5 % 08/01/2024 6:00 AM [facility] MONOCYTES % 14.4 % 08/01/2024 6:00 AM [facility] EOSINOPHILS % 5.8 % 08/01/2024 6:00 AM [facility] BASOPHILS % 0.4 % 08/01/2024 6:00 AM [facility] IMMATURE GRANS % 0.2 % 08/01/20 6:00 AM [facility] NRBC % 0.0 % 08/01/2024 6:00 AM [facility] ABS. NEUTROPHILS 5.47 1.60 - 8.30 x10'3/uL 08/01/2024 6:00 AM [facility] ABS. LYMPHOCYTES 1.03 0.80 - 4.70 x10'3/uL 08/01/2024 6:00 AM CERTIFIED EMERGENCY VEHICLE TECHNICIAN [facility] ABS. MONOCYTES 1.18 0.00 - 1.50 x10'3/uL 08/01/2024 6:00 AM CERTIFIED EMERGENCY VEHICLE TECHNICIAN [facility] ABS. EOSINOPHILS 0.48(H) 0.00 - 0.40 x10'3/uL 08/01/2024 6:00 AM CERTIFIED EMERGENCY VEHICLE TECHNICIAN [facility] ABS. BASOPHILS 0.03 0.00 - 0.20 x10'3/uL 08/01/2024 6:00 AM CERTIFIED EMERGENCY VEHICLE TECHNICIAN [facility] ABS. IMMATURE GRANULOCYTES 0.02 0.00 - 0.03 x10'3/uL 08/01/2024 6:00 AM CERTIFIED EMERGENCY VEHICLE TECHNICIAN [facility] ABS. NUCLEATED RBC'S 0.00 0.00 - 0.01 x10'3/uL 08/01/2024 6:00 AM CERTIFIED EMERGENCY VEHICLE TECHNICIAN [facility] PLT MORPH. DECREASED 08/01/2024 6:00 AM CERTIFIED EMERGENCY VEHICLE TECHNICIAN [facility] RBC MORPHOLOGY 1+ 08/01/2024 6:00 AM CERTIFIED EMERGENCY VEHICLE TECHNICIAN [facility] Comment:ANISOCYTOSIS 08/01/2024 5:24 AM CERTIFIED EMERGENCY VEHICLE TECHNICIAN Jena Kong MD LABORATORY Final Resul t Performing Organization Address City/[facility]/ZIP Co de Phone [place] [address], * (ABNORMAL) POCT glucose (07/31/2024 8:41 PM CERTIFIED EMERGENCY VEHICLE TECHNICIAN) GLUCOSE POC 107(H) 70 - 99 MG/DL 07/31/2024 8:51 PM CERTIFIED EMERGENCY VEHICLE TECHNICIAN [facility] 07/31/2024 8:41 PM CERTIFIED EMERGENCY VEHICLE TECHNICIAN us Megan Infante MD POCT ORDERABLES - DEVICE Final R esult Performing Organization Address City/[facility]/ZIP Co de Phone Number [facility] [address] [place], [place] [address] [place] [address], * POCT glucose (07/31/2024 6:13 PM CERTIFIED EMERGENCY VEHICLE TECHNICIAN) GLUCOSE POC 70 70 - 99 MG/DL 07/31/2024 6:19 PM CERTIFIED EMERGENCY VEHICLE TECHNICIAN [facility] 07/31/2024 6:13 PM CERTIFIED EMERGENCY VEHICLE TECHNICIAN Megan Infante MD POCT ORDERABLES - DEVICE Final R esult Performing Organization Address [facility] Co de Phone Number [address] [address], * CULTURE URINE (07/31/2024 4:57 PM CERTIFIED EMERGENCY VEHICLE TECHNICIAN) SPEC DESCRIPTION URINE CLEAN CATCH 07/31/2024 4:57 PM CERTIFIED EMERGENCY VEHICLE TECHNICIAN [facility] SPECIAL REQUESTS NO SPECIAL REQUEST 07/31/2024 4:57 PM CERTIFIED EMERGENCY VEHICLE TECHNICIAN [facility] CULTURE RESULT NO GROWTH (< OR = 1,000 CFU/ML) 08/02/2024 8:07 AM CERTIFIED EMERGENCY VEHICLE TECHNICIAN [facility] URINE SPECIMEN OBTAINED BY CLEAN CATCH PROCEDURE / Unknown 07/31/2024 4:57 PM CERTIFIED EMERGENCY VEHICLE TECHNICIAN 07/31/2024 5:23 PM CERTIFIED EMERGENCY VEHICLE TECHNICIAN Jena Kong MD MICROBIOLOGY - GENERAL ORDE LYUBOV Final Result Performing Organization Address [facility] Co de Phone Number [facility] [address] [place] [address], [id number] [facility] [address] [place] [address], * (ABNORMAL) URINALYSIS (07/31/2024 4:57 PM CERTIFIED EMERGENCY VEHICLE TECHNICIAN) COLOR (U) YELLOW 07/31/2024 6:04 PM CERTIFIED EMERGENCY VEHICLE TECHNICIAN [facility] TRANSPARENCY CLEAR 07/31/2024 6:04 PM CERTIFIED EMERGENCY VEHICLE TECHNICIAN [facility] SPECIFIC GRAVITY (U) 1.005 1.000 - 1.025 07/31/2024 6:04 PM CERTIFIED EMERGENCY VEHICLE TECHNICIAN [facility] Comment:LESS THAN OR EQUAL T O U PH 5.5 5.0 - 8.0 07/31/2024 6:04 PM CERTIFIED EMERGENCY VEHICLE TECHNICIAN [facility] LEUKOCYTES (U) NEGATIVE NEGATIVE 07/31/2024 6:04 PM CERTIFIED EMERGENCY VEHICLE TECHNICIAN [facility] NITRITES NEGATIVE NEGATIVE 07/31/2024 6:04 PM CERTIFIED EMERGENCY VEHICLE TECHNICIAN [facility] PROTEIN RANDOM (U) NEGATIVE NEGATIVE 07/31/2024 6:04 PM CERTIFIED EMERGENCY VEHICLE TECHNICIAN [facility] GLUCOSE (U) TRACE(A) NEGATIVE 07/31/2024 6:04 PM CERTIFIED EMERGENCY VEHICLE TECHNICIAN [facility] KETONES MG/DL (U) NEGATIVE NEGATIVE 07/31/2024 6:04 PM CERTIFIED EMERGENCY VEHICLE TECHNICIAN [facility] UROBILINOGEN 0.2 <1.0 EU/DL 07/31/2024 6:04 PM CERTIFIED EMERGENCY VEHICLE TECHNICIAN [facility] BILIRUBIN (U) NEGATIVE NEGATIVE 07/31/2024 6:04 PM CERTIFIED EMERGENCY VEHICLE TECHNICIAN [facility] BLOOD (U) TRACE(A) NEGATIVE 07/31/2024 6:04 PM CERTIFIED EMERGENCY VEHICLE TECHNICIAN [facility] WBC/HPF 0-5 0 - 5 /HPF 07/31/2024 6:04 PM CERTIFIED EMERGENCY VEHICLE TECHNICIAN [facility] RBC/HPF 0-5 0 - 5 /HPF 07/31/2024 6:04 PM CERTIFIED EMERGENCY VEHICLE TECHNICIAN [facility] EPI/LPF RARE /LPF 07/31/2024 6:04 PM CERTIFIED EMERGENCY VEHICLE TECHNICIAN [facility] BACTERIA (U) 1+ /HPF 07/31/2024 6:04 PM CERTIFIED EMERGENCY VEHICLE TECHNICIAN [facility] MUCUS PRESENT 07/31/2024 6:04 PM CERTIFIED EMERGENCY VEHICLE TECHNICIAN [facility] URINE SPECIMEN OBTAINED BY CLEAN CATCH PROCEDURE / Unknown 07/31/2024 4:57 PM CERTIFIED EMERGENCY VEHICLE TECHNICIAN us Jena Kong MD URINE ORDERABLES Final Resu lt [facility] [address] [employer] [place] [address], * XR CHEST PORTABLE (07/31/2024 3:55 PM CERTIFIED EMERGENCY VEHICLE TECHNICIAN) Anatomical Region Laterality Modality Chest Radiographic Stephie ging 07/31/2024 4:12 PM CERTIFIED EMERGENCY VEHICLE TECHNICIAN Impressions 07/31/2024 4:21 PM CERTIFIED EMERGENCY VEHICLE TECHNICIAN IMPRESSION: Cardiomegaly with new congestive changes as described. No focal infiltrates. Ordered By: JENA KONG Interpreted By: Nicko Portillo MD, 07/31/2024 4:12 PM Narrative 07/31/2024 4:21 PM CERTIFIED EMERGENCY VEHICLE TECHNICIAN [address] [place] [address] Examination: Portable chest. Exam time: 1523 hours. Clinical history: Dyspnea. CHF. Comparison: 05/02/2024. Technique: ??AP ??upright view. Findings: Allowing for differences in projection and rotation, the cardiomediastinal silhouette is stable. The heart remains enlarged. Changes from median sternotomy and aortic valve replacement noted. There is now pulmonary vascular congestion with perivascular haziness and interstitial prominence, compatible with interstitial edema. No confluent infiltrates or effusions are identified. The visualized bony thorax is stable. Plate and screw fusion in the lower cervical spine again evident. Procedure Note Nicko Portillo MD - 07/31/[address] [place] [address] Examination: Portable chest. Exam time: 1523 hours. Clinical history: Dyspnea. CHF. Comparison: 05/02/2024. Technique: AP upright view. Findings: Allowing for differences in projection and rotation, thecardiomediastinal silhouette is stable. The heart remains enlarged.Changes from median sternotomy and aortic valve replacement noted. Thereis now pulmonary vascular congestion with perivascular haziness andinterstitial prominence, compatible with interstitial edema. No confluentinfiltrates or effusions are identified. The visualized bony thorax isstable. Plate and screw fusion in the lower cervical spine againevident. IMPRESSION: Cardiomegaly with new congestive changes as described. No focalinfiltrates. Ordered By: JENA KONG Interpreted By: Nicko Portillo MD, 07/31/2024 4:12 PM Jena Kong MD GENERAL IMAGING Final Resul t * BLOOD CULTURE #1 (07/31/2024 3:43 PM CERTIFIED EMERGENCY VEHICLE TECHNICIAN) SPEC DESCRIPTION BLOOD 07/31/2024 3:30 PM CERTIFIED EMERGENCY VEHICLE TECHNICIAN [facility] SPECIAL REQUESTS NO SPECIAL REQUEST 07/31/2024 3:30 PM CERTIFIED EMERGENCY VEHICLE TECHNICIAN [facility] CULTURE RESULT NO GROWTH 5 DAYS 2024 10:57 AM CERTIFIED EMERGENCY VEHICLE TECHNICIAN [facility] BLOOD SPECIMEN OBTAINED FOR BLOOD CULTURE / Unknown 07/31/2024 3:43 PM CERTIFIED EMERGENCY VEHICLE TECHNICIAN 07/31/2024 3:47 PM CERTIFIED EMERGENCY VEHICLE TECHNICIAN us Jena Kong MD MICROBIOLOGY - GENERAL ORDE RABLES Final Result Performing Organization Address [facility]/ZIP Co de Phone Number [facility] [address] [place] [address], * (ABNORMAL) PRO-BRAIN NATRIURETIC PEPTIDE (07/31/2024 3:36 PM CERTIFIED EMERGENCY VEHICLE TECHNICIAN) PRO-B TYPE NATRIURETIC PEPTIDE 2,996(H) <125 PG/ML 07/31/2024 4:08 PM CERTIFIED EMERGENCY VEHICLE TECHNICIAN [facility] Comment: CUT POINTS ESTABLISHED BY [employer] ON NT PROBNP (ICON) STUDY (2006). AGE INDEPENDENT: <300 PG/ML HAS A 99% NEGATIVE PREDICTIVE VALUE FOR EXCLUDING ACUTE CHF <50 YEARS: >450 PG/ML IS CONSISTENT WITH ACUTE CHF 50-75 YEARS: >900 PG/ML IS CONSISTENT WITH ACUTE CHF >75 YEARS: >1800 PG/ML IS CONSISTENT WITH ACUTE CHF IN PATIENTS WITH RENAL INSUFFICIENCY (GFR <60), >1200 PG/ML YIELDS A DIAGNOSTIC SENSITIVITY AND SPECIFICITY OF 89% AND 72% FOR ACUTE CHF. 07/31/2024 3:36 PM CERTIFIED EMERGENCY VEHICLE TECHNICIAN us Jena Kong MD LABORATORY Final Resul t [facility] [address] [place] [address], * MAGNESIUM (07/31/2024 3:36 PM CERTIFIED EMERGENCY VEHICLE TECHNICIAN) MAGNESIUM 2.0 1.8 - 2.4 MG/DL 07/31/2024 4:08 PM CERTIFIED EMERGENCY VEHICLE TECHNICIAN [facility] 07/31/2024 3:36 PM CERTIFIED EMERGENCY VEHICLE TECHNICIAN us Jena Kong MD LABORATORY Final Resul t Performing Organization Address City/[facility]/ZIP Co de Phone Number [facility] [address] [place] [address], * LACTIC ACID W REFLEX (SEPSIS) (07/31/2024 3:36 PM CERTIFIED EMERGENCY VEHICLE TECHNICIAN) [facility] LACTIC ACID VENOUS 0.4 0.4 - 2.0 MMOL/L 07/31/2024 4:08 PM CERTIFIED EMERGENCY VEHICLE TECHNICIAN [facility] 07/31/2024 3:36 PM CERTIFIED EMERGENCY VEHICLE TECHNICIAN us Jena Kong MD LABORATORY Final Resul t Performing Organization Address [facility]/ZIP Co de Phone Number [facility] [address] [place] [address], * TROPONIN, QUANT (07/31/2024 3:36 PM CERTIFIED EMERGENCY VEHICLE TECHNICIAN) [facility] TROPONIN I HIGH SENSITIVITY 48 0 - 76 ng/L 07/31/2024 4:08 PM CERTIFIED EMERGENCY VEHICLE TECHNICIAN [facility] 07/31/2024 3:36 PM CERTIFIED EMERGENCY VEHICLE TECHNICIAN us Jena Kong MD LABORATORY Final Resul t Performing Organization Address [facility]/ZIP Co de Phone Number [facility] [address] [place] [address], * (ABNORMAL) COMPREHENSIVE METABOLIC PANEL (07/31/2024 3:36 PM CERTIFIED EMERGENCY VEHICLE TECHNICIAN) SODIUM S/P/B 133(L) 136 - 145 MMOL/L 07/31/2024 4:08 PM [facility] POTASSIUM S/P/B 5.2(H) 3.5 - 5.1 MMOL/L 07/31/2024 4:08 PM [facility] CHLORIDE S/P/B 100 98 - 107 MMOL/L 07/31/2024 4:08 PM [facility] CO2 24.6 21.0 - 32.0 MMOL/L 07/31/2024 4:08 PM [facility] GLUCOSE 73 70 - 99 MG/DL 07/31/2024 4:08 PM [facility] Comment: FASTING GLUCOSE 100 TO 125 MG/DL IS CONSISTENT WITH IMPAIRED FASTING GLUCOSE. FASTING GLUCOSE >125 MG/DL IS CONSISTENT WITH DIABETES. RANDOM GLUCOSE >200 MG/DL WITH HYPERGLYCEMIC SYMPTOMS IS CONSISTENT WITH DIABETES. PER ADA GUIDELINES BUN 52(H) 6 - 24 MG/DL 07/31/2024 4:08 PM [facility] CREATININE S/P/B 1.84(H) 0.70 - 1.30 MG/DL 07/31/2024 4:08 PM [facility] CALCIUM S/P/B 8.7 8.4 - 10.5 MG/DL 07/31/2024 4:08 PM [facility] BILIRUBIN TOTAL S/P/B 1.0 0.2 - 1.0 MG/DL 07/31/2024 4:08 PM [facility] Comment: THIS ASSAY IS NOT RECOMMENDED FOR PATIENTS UNDERGOING TREATMENT WITH ELTROMBOPAG DUE TO THE POTENTIAL FOR FALSELY ELEVATED RESULTS. ALKALINE PHOSPHATASE S/P/B 121(H) 45 - 115 U/L 07/31/2024 4:08 PM [facility] AST 32 15 - 37 U/L 07/31/2024 4:08 PM [facility] ALT 31 16 - 63 U/L 07/31/2024 4:08 PM [facility] TOTAL PROTEIN S/P/B 7.5 6.4 - 8.2 G/DL 07/31/2024 4:08 PM [facility] ALBUMIN S/P/B 3.3(L) 3.4 - 5.0 G/DL 07/31/2024 4:08 PM [facility] ANION GAP 8.4 5.0 - 15.0 MMOL/L 07/31/2024 4:08 PM [facility] OSMOLALITY (CALC) 289 MOSM/KG 024 4:08 PM [facility] Comment:REFERENCE RANGE NOT ESTABLISHED GFR ESTIMATE 39(L) >89 ML/MIN/1. 73 M2 07/31/2024 4:08 PM [facility] GFR NOTES GFR REFERENCE S: 07/31/2024 4:08 PM [facility] Comment: THE ESTIMATED GFR IS CALCULATED [...] ml/min/1.73 m2 G5,KIDNEY FAILURE: <15 ml/min/1.73 m2 07/31/2024 3:36 PM CERTIFIED EMERGENCY VEHICLE TECHNICIAN Jena Kong MD LABORATORY Final Resul t [facility] [address] [place] [address], * (ABNORMAL) PROTIME/INR, VENOUS (07/31/2024 3:36 PM CERTIFIED EMERGENCY VEHICLE TECHNICIAN) PROTIME 72.6(H) 9.4 - 12.5 SEC 07/31/2024 4:07 PM CERTIFIED EMERGENCY VEHICLE TECHNICIAN [facility] INR 6.4(HH) 0.8 - 1.0 07/31/2024 4:07 PM CERTIFIED EMERGENCY VEHICLE TECHNICIAN [facility] Comment: CRITICAL VALUE CALLED TO JENNIFER MENDIETA ER 07/31/24 1604 READ BACK AND VERIFIED 07/31/2024 3:36 PM CERTIFIED EMERGENCY VEHICLE TECHNICIAN us Jena Kong MD LABORATORY Final Resul t [facility] [address] [employer] [place] [address], * (ABNORMAL) CBC W/DIFF AUTOMATED (07/31/2024 3:36 PM CERTIFIED EMERGENCY VEHICLE TECHNICIAN) WBC 8.34 4.00 - 10.80 x10'3/uL 07/31/2024 4:08 PM CERTIFIED EMERGENCY VEHICLE TECHNICIAN [facility] RBC 3.88(L) 4.50 - 6.10 x10'6/uL 07/31/2024 4:08 PM [facility] HGB 11.2(L) 13.0 - 18.0 G/DL 07/31/2024 4:08 PM CERTIFIED EMERGENCY VEHICLE TECHNICIAN [facility] HCT 35.0(L) 37.0 - 52.0 % 07/31/2024 4:08 PM [facility] MCV 90.2 78.0 - 100.0 FL 07/31/2024 4:08 PM [facility] MCH 28.9 27.0 - 31.0 PG 07/31/2024 4:08 PM [facility] MCHC 32.0(L) 33.0 - 36.0 G/DL 07/31/2024 4:08 PM CERTIFIED EMERGENCY VEHICLE TECHNICIAN [facility] RDW 16.0(H) 11.5 - 14.5 % 07/31/2024 4:08 PM CERTIFIED EMERGENCY VEHICLE TECHNICIAN [facility] PLT 82(L) 150 - 350 x10'3/uL 07/31/2024 4:08 PM [facility] MPV 12.4(H) 7.4 - 10.4 FL 07/31/2024 4:08 PM [facility] CBC COMMENT NORMAL REFERENCE RANGE NOT ESTABLISHED FOR THE PROPORTIONAL LEUKOCYTE DIFFERENTIAL. 07/31/2024 4:08 PM CERTIFIED EMERGENCY VEHICLE TECHNICIAN [facility] NEUTROPHILS % 70.4 % 07/31/2024 4:08 PM CERTIFIED EMERGENCY VEHICLE TECHNICIAN [facility] LYMPHOCYTES % 12.0 % 07/31/2024 4:08 PM CERTIFIED EMERGENCY VEHICLE TECHNICIAN [facility] MONOCYTES % 13.5 % 07/31/2024 4:08 PM CERTIFIED EMERGENCY VEHICLE TECHNICIAN [facility] EOSINOPHILS % 3.5 % 07/31/2024 4:08 PM CERTIFIED EMERGENCY VEHICLE TECHNICIAN [facility] BASOPHILS % 0.4 % 07/31/2024 4:08 PM CERTIFIED EMERGENCY VEHICLE TECHNICIAN [facility] IMMATURE GRANS % 0.2 % 07/31/20 4:08 PM CERTIFIED EMERGENCY VEHICLE TECHNICIAN [facility] NRBC % 0.0 % 07/31/2024 4:08 PM CERTIFIED EMERGENCY VEHICLE TECHNICIAN [facility] ABS. NEUTROPHILS 5.87 1.60 - 8.30 x10'3/uL 07/31/2024 4:08 PM CERTIFIED EMERGENCY VEHICLE TECHNICIAN [facility] ABS. LYMPHOCYTES 1.00 0.80 - 4.70 x10'3/uL 07/31/2024 4:08 PM CERTIFIED EMERGENCY VEHICLE TECHNICIAN [facility] ABS. MONOCYTES 1.13 0.00 - 1.50 x10'3/uL 07/31/2024 4:08 PM CERTIFIED EMERGENCY VEHICLE TECHNICIAN [facility] ABS. EOSINOPHILS 0.29 0.00 - 0.40 x10'3/uL 07/31/2024 4:08 PM CERTIFIED EMERGENCY VEHICLE TECHNICIAN [facility] ABS. BASOPHILS 0.03 0.00 - 0.20 x10'3/uL 07/31/2024 4:08 PM CERTIFIED EMERGENCY VEHICLE TECHNICIAN [facility] ABS. IMMATURE GRANULOCYTES 0.02 0.00 - 0.03 x10'3/uL 07/31/2024 4:08 PM CERTIFIED EMERGENCY VEHICLE TECHNICIAN [facility] ABS. NUCLEATED RBC'S 0.00 0.00 - 0.01 x10'3/uL 07/31/2024 4:08 PM CERTIFIED EMERGENCY VEHICLE TECHNICIAN [facility] 07/31/2024 3:36 PM CERTIFIED EMERGENCY VEHICLE TECHNICIAN us Jena Kong MD LABORATORY Final Resul t [facility] [address] [place] [address], * ECG 12 lead (07/31/2024 3:32 PM CERTIFIED EMERGENCY VEHICLE TECHNICIAN) 07/31/2024 3:32 PM CERTIFIED EMERGENCY VEHICLE TECHNICIAN Narrative [facility] [place] [facility] - 07/31/2024 7:59 PM CERTIFIED EMERGENCY VEHICLE TECHNICIAN ? [facility] ?[address] [place] ??[address] ? Test Date: ?2024-07-31 Pat Name: ? OBIE SIMS ?Department: ?? 3 ? Room: ? 326 Gender: ? Male ? Flash Welder: ?? : ?1955 ? Requested By: JENA Burnham Number: [id number] ? Reading MD: ?? Brit Gonzáles ? Measurements Intervals ?[place] ? Rate: ? 67 ? P: ? MI: ? 0 ?QRS: ?-24 QRSD: ? 140 ?T: ?122 QT: ? 402 ? QTc: ?426 ? Interpretive Statements ATRIAL FIBRILLATION LEFT BUNDLE BRANCH BLOCK IFIED EMERGENCY VEHICLE TECHNICIAN Procedure Note Brit Gonzáles MD - 07/31/[address] [place] [address] Test Date: 2024-07-31 Pat Name: OBIE SIMS Department: 3 Room: 326 Gender: Male Flash Welder: : 1955 Requested By: JENA KONG Order Number: [id number] Sage MD: Brit Gonzáles Measurements Intervals [place] Rate: 67 P: MI: 0 QRS: -24 QRSD: 140 T: 122 QT: 402 QTc: 426 Interpretive Statements ATRIAL FIBRILLATION LEFT BUNDLE BRANCH BLOCK IFIED EMERGENCY VEHICLE TECHNICIAN us Jena Kong MD ECG ORDERABLES Final Resul t [facility] documented in this encounter Visit Diagnoses Diagnosis CHF exacerbation ([facility] HHS/HCC)- Primary Congestive heart failure, unspecified Shortness of breath CHF exacerbation (CMS/HCC HHS/HCC) Congestive heart failure, unspecified CKD (chronic kidney disease) Chronic kidney disease, unspecified Chronic pain Other chronic pain Hyperkalemia Hyperpotassemia Chronic venous insufficiency Unspecified venous (peripheral) insufficiency Non-pressure chronic ulcer of left calf limited to breakdown of skin ([facility]) 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 breakdown of skin ([facility]) Chronic combined systolic and diastolic congestive heart failure ([facility]) Chronic combined systolic and diastolic heart failure documented in this encounter Admitting Diagnoses Diagnosis CHF exacerbation ([facility]) Congestive heart failure, unspecified documented in this encounter Administered Medications Inactive Administered Medications - up to 3 most recent administrations Medication Order MAR Action Action Date Dose Rate Site albuterol sulfate HFA 108 (90 Base) MCG/ACT inhaler 2 puff 2 puff, Inhalation, Every 4 hours PRN, Wheezing, Shortness of breath, Starting on Wed07/31/24 at 1748, Until Taisha 08/03/24 at 1513 Given 07/31/2024 9:34 PM CERTIFIED EMERGENCY VEHICLE TECHNICIAN 2 puffs allopurinol (ZYLOPRIM) tablet 300 mg 300 mg, Oral, Daily, First dose on Wed07/31/24 at 1815, Until Discontinued Given 08/03/2024 8:49 AM CERTIFIED EMERGENCY VEHICLE TECHNICIAN 300 mg Given 08/02/2024 9:38 AM CERTIFIED EMERGENCY VEHICLE TECHNICIAN 300 mg Given 08/01/2024 8:34 AM CERTIFIED EMERGENCY VEHICLE TECHNICIAN 300 mg atorvastatin (LIPITOR) tablet 80 mg 80 mg, Oral, Nightly at bedtime, First dose on Wed07/31/24 at 2100, Until Discontinued Given 08/02/2024 9:15 PM CERTIFIED EMERGENCY VEHICLE TECHNICIAN 80 m g Given 08/01/2024 9:09 PM CERTIFIED EMERGENCY VEHICLE TECHNICIAN 80 mg Given 07/31/2024 8:53 PM CERTIFIED EMERGENCY VEHICLE TECHNICIAN 80 mg carvedilol (COREG) tablet 3.125 mg 3.125 mg, Oral, 2 times daily, First dose on Wed07/31/24 at 2100, Until Discontinued, Take with meal or snack Given 08/03/2024 8:49 AM CERTIFIED EMERGENCY VEHICLE TECHNICIAN 3.125 mg Given 08/02/2024 9:19 PM CERTIFIED EMERGENCY VEHICLE TECHNICIAN 3.125 mg Given 08/02/2024 9:37 AM CERTIFIED EMERGENCY VEHICLE TECHNICIAN 3.125 mg empagliflozin (JARDIANCE) tablet 25 mg 25 mg, Oral, Daily, First dose on Wed07/31/24 at 1815, Until Discontinued, Contact provider if the patient has a UTI, is NPO, or has an upcoming procedure within 3 days Given 08/02/2024 9:38 AM CERTIFIED EMERGENCY VEHICLE TECHNICIAN 25 mg Given 08/01/2024 8:34 AM CERTIFIED EMERGENCY VEHICLE TECHNICIAN 25 mg folic acid (FOLVITE) tablet 1 mg 1 mg, Oral, Daily, First dose on Wed07/31/24 at 1815, Until Discontinued Given 08/03/2024 8:49 AM CERTIFIED EMERGENCY VEHICLE TECHNICIAN 1 mg Given 08/02/2024 9:38 AM CERTIFIED EMERGENCY VEHICLE TECHNICIAN 1 mg Given 08/01/2024 8:34 AM CERTIFIED EMERGENCY VEHICLE TECHNICIAN 1 mg furosemide (LASIX) injection 80 mg 80 mg, Intravenous, Once, 1 dose, On Wed07/31/24 at 1545, Administer IV push 20-40mg/min. Given 07/31/2024 3:47 PM CERTIFIED EMERGENCY VEHICLE TECHNICIAN 80 mg furosemide (LASIX) injection 80 mg 80 mg, Intravenous, Once, 1 dose, On Wed08/01/24 at 0600, Administer IV push 20-40mg/min. Given 08/01/2024 6:51 AM CERTIFIED EMERGENCY VEHICLE TECHNICIAN 80 mg furosemide (LASIX) injection 80 mg 80 mg, Intravenous, Once, 1 dose, On Wed08/02/24 at 0945, Administer IV push 20-40mg/min. Given 08/02/2024 9:36 AM CERTIFIED EMERGENCY VEHICLE TECHNICIAN 80 mg furosemide (LASIX) tablet 80 mg 80 mg, Oral, Daily, First dose on Wed08/03/24 at 0900, Until Discontinued Given 08/03/2024 8:48 AM CERTIFIED EMERGENCY VEHICLE TECHNICIAN 80 mg glipiZIDE XL (GLUCOTROL XL) 24 hr tablet 5 mg 5 mg, Oral, Daily with breakfast, First dose on Wed08/01/24 at 0800, Until Discontinued, Do not break, chew, or crush. Given 08/02/2024 9:37 AM CERTIFIED EMERGENCY VEHICLE TECHNICIAN 5 mg Given 08/01/2024 8:34 AM CERTIFIED EMERGENCY VEHICLE TECHNICIAN 5 mg HYDROcodone-acetaminophen (NORCO) 10-325 MG tablet 1 tablet 1 tablet, Oral, Once, 1 dose, On Wed07/31/24 at 1545, Maximum dose of acetaminophen is 4000 mg from all sources in 24 hours. Given 07/31/2024 3:46 PM CERTIFIED EMERGENCY VEHICLE TECHNICIAN 1 tablet HYDROcodone-acetaminophen (NORCO) 10-325 MG tablet 1 tablet 1 tablet, Oral, Every 6 hours PRN, Moderate pain (Scale 4 - 7), Starting on Wed07/31/24 at 1748, Until Wed08/03/24 at 1513, Maximum dose of acetaminophen is 4000 mg from all sources in 24 hours.Indications:Acute Pain < 7 Day Supply Given 08/03/2024 6:17 AM CERTIFIED EMERGENCY VEHICLE TECHNICIAN 1 tablet Given 08/02/2024 9:16 PM CERTIFIED EMERGENCY VEHICLE TECHNICIAN 1 tablet Given 08/02/2024 3:17 PM CERTIFIED EMERGENCY VEHICLE TECHNICIAN 1 tablet hydrOXYzine (ATARAX) tablet 25 mg 25 mg, Oral, 3 times daily PRN, Itching, Starting on Wed08/01/24 at 0851, Until Wed08/03/24 at 1513 Given 08/02/2024 12:30 AM CERTIFIED EMERGENCY VEHICLE TECHNICIAN 25 mg Given 08/01/2024 11:51 AM CERTIFIED EMERGENCY VEHICLE TECHNICIAN 25 mg insulin glargine (LANTUS) injection 15 Units 15 Units, Subcutaneous, Nightly at bedtime, First dose on Wed07/31/24 at 2100, Until Discontinued Given 07/31/2024 8:53 PM CERTIFIED EMERGENCY VEHICLE TECHNICIAN 15 Units Right Arm insulin glargine (LANTUS) injection 5 Units 5 Units, Subcutaneous, Nightly at bedtime, First dose (after last modification) on Wed08/01/24 at 2100, Until Discontinued Given 08/02/2024 9:19 PM CERTIFIED EMERGENCY VEHICLE TECHNICIAN 5 Units Left Arm mometasone-formoterol (DULERA) 100-5 MCG/ACT inhaler 2 puff 2 puff, Inhalation, 2 times daily, First dose on Wed07/31/24 at 1900, Until Discontinued, Following administration, rinse mouth with water after use (do not swallow) to reduce risk of oral candidiasis. Given 08/03/2024 7:34 AM CERTIFIED EMERGENCY VEHICLE TECHNICIAN 2 puffs Given 08/02/2024 6:14 PM CERTIFIED EMERGENCY VEHICLE TECHNICIAN 2 puffs Given 08/02/2024 7:42 AM CERTIFIED EMERGENCY VEHICLE TECHNICIAN 2 puffs nystatin (MYCOSTATIN) powder Topical, 2 times daily, First dose on Wed08/01/24 at 1445, Until Discontinued Given 08/03/2024 8:48 AM CERTIFIED EMERGENCY VEHICLE TECHNICIAN Given 08/02/2024 9:20 PM CERTIFIED EMERGENCY VEHICLE TECHNICIAN Given 08/02/2024 9:38 AM CERTIFIED EMERGENCY VEHICLE TECHNICIAN pantoprazole EC (PROTONIX) tablet 40 mg 40 mg, Oral, Daily, First dose on Wed07/31/24 at 1815, Until Discontinued, Do not break, chew, or crush. Given 08/03/2024 8:49 AM CERTIFIED EMERGENCY VEHICLE TECHNICIAN 40 mg Given 08/02/2024 9:38 AM CERTIFIED EMERGENCY VEHICLE TECHNICIAN 40 mg Given 08/01/2024 8:34 AM CERTIFIED EMERGENCY VEHICLE TECHNICIAN 40 mg pregabalin (LYRICA) capsule 150 mg 150 mg, Oral, 2 times daily, First dose on Wed08/01/24 at 2100, Until Discontinued Given 08/03/2024 8:48 AM CERTIFIED EMERGENCY VEHICLE TECHNICIAN 150 mg Given 08/02/2024 9:15 PM CERTIFIED EMERGENCY VEHICLE TECHNICIAN 150 mg Given 08/02/2024 9:37 AM CERTIFIED EMERGENCY VEHICLE TECHNICIAN 150 mg sacubitril-valsartan (ENTRESTO) 24-26 MG tablet 1 tablet 1 tablet, Oral, 2 times daily, First dose on Wed07/31/24 at 2100, Until Discontinued Given 08/03/2024 8:48 A M CERTIFIED EMERGENCY VEHICLE TECHNICIAN 1 tablet Given 08/02/2024 9:16 PM CERTIFIED EMERGENCY VEHICLE TECHNICIAN 1 tablet Given 08/02/2024 9:37 AM CERTIFIED EMERGENCY VEHICLE TECHNICIAN 1 tablet sertraline (ZOLOFT) tablet 50 mg 50 mg, Oral, Daily, First dose on Wed07/31/24 at 1815, Until Discontinued Given 08/03/2024 8:49 AM CERTIFIED EMERGENCY VEHICLE TECHNICIAN 50 mg Given 08/02/2024 9:38 AM CERTIFIED EMERGENCY VEHICLE TECHNICIAN 50 mg Given 08/01/2024 8:34 AM CERTIFIED EMERGENCY VEHICLE TECHNICIAN 50 mg tiotropium (SPIRIVA RESPIMAT) 2.5 MCG/ACT inhaler 2 puff 2 puff, Inhalation, Daily, First dose on Wed07/31/24 at 1815, Until Discontinued, Common canister Given 08/03/2024 7:32 AM CERTIFIED EMERGENCY VEHICLE TECHNICIAN 2 puffs Given 08/02/2024 7:41 AM CERTIFIED EMERGENCY VEHICLE TECHNICIAN 2 puffs Given 08/01/2024 7:26 AM CERTIFIED EMERGENCY VEHICLE TECHNICIAN 2 puffs traZODone (DESYREL) tablet 300 mg 300 mg, Oral, Nightly at bedtime, First dose on Wed07/31/24 at 2100, Until Discontinued Given 08/02/2024 9:16 PM CERTIFIED EMERGENCY VEHICLE TECHNICIAN 3 00 mg Given 08/01/2024 9:09 PM CERTIFIED EMERGENCY VEHICLE TECHNICIAN 300 mg Given 07/31/2024 8:53 PM CERTIFIED EMERGENCY VEHICLE TECHNICIAN 300 mg documented in this encounter Active and Recently Administered Medications Times are shown in CERTIFIED EMERGENCY VEHICLE TECHNICIAN. Scheduled Medication Order 08/01/2024 08/02/2024 08/03/2024 allopurinol (ZYLOPRIM) tablet 300 mg 300 mg, Oral, Daily, First dose on Wed07/31/24 at 1815, Until Discontinued 0834 (Given - Provider: Abril Contreras RN) 0938 (Given - Provider: Marlin Darnell RN) 0849 (Given - Provider: Abril Contreras, YUNI) atorvastatin (LIPITOR) tablet 80 mg 80 mg, Oral, Nightly at bedtime, First dose on Wed07/31/24 at 2100, Until Discontinued 2108 (Given - Provider: Ally Infante RN) 2114 (Given - Provider: Ally Infante, YUNI) carvedilol (COREG) tablet 3.125 mg 3.125 mg, Oral, 2 times daily, First dose on Wed07/31/24 at 2100, Until Discontinued, Take with meal or snack 0834 (Given - Provider: Abril Contreras RN)2109 (Given - Provider: Ally Infante RN) 0937 (Given - Provider: Marlin Darnell RN)2118 (Given - Provider: Ally Infante RN) 0849 (Given - Provider: Abril Contreras RN) empagliflozin (JARDIANCE) tablet 25 mg 25 mg, Oral, Daily, First dose on Wed07/31/24 at 1815, Until Discontinued, Contact provider if the patient has a UTI, is NPO, or has an upcoming procedure within 3 days 0834 (Given - Provider: Abril Contreras RN) 0938 (Given - Provider: Marlin Darnell RN) 0851 (Hold - Provider: Abril Contreras RN - Reason: Provider Order - Comment: Kamari Peterson, SKEIN YARN DYER HELPER hold) folic acid (FOLVITE) tablet 1 mg 1 mg, Oral, Daily, First dose on Wed07/31/24 at 1815, Until Discontinued 0834 (Given - Provider: Abril Contreras RN) 0938 (Given - Provider: Marlin Darnell, YUNI) 0849 (Given - Provider: Abril Contreras, YUNI) furosemide (LASIX) injection 80 mg (COMPLETED) 80 mg, Intravenous, Once, 1 dose, On Wed08/01/24 at 0600, Administer IV push 20-40mg/min. 0651 (Given - Provider: Ally Infante, YUNI) furosemide (LASIX) injection 80 mg (COMPLETED) 80 mg, Intravenous, Once, 1 dose, On Wed08/02/24 at 0945, Administer IV push 20-40mg/min. 0936 (Given - Provider: Marlin Darnell, YUNI) furosemide (LASIX) tablet 80 mg 80 mg, Oral, Daily, First dose on Wed08/03/24 at 0900, Until Discontinued 0848 (Given - Provider: Abril Contreras, YUNI) glipiZIDE XL (GLUCOTROL XL) 24 hr tablet 5 mg 5 mg, Oral, Daily with breakfast, First dose on Wed08/01/24 at 0800, Until Discontinued, Do not break, chew, or crush. 0834 (Given - Provider: Abril Contreras, YUNI) 0937 (Given - Provider: Marlin Darnell, YUNI) 0630 (Hold - Provider: Ally Infante RN - Reason: Other - Comment: Per YULIYA Dye) insulin glargine (LANTUS) injection 5 Units (CANCELED) 5 Units, Subcutaneous, Nightly at bedtime, First dose (after last modification) on Wed08/01/24 at 2100, Until Discontinued 1716 (Hold - Provider: Abril Contreras RN - Reason: Provider Order - Comment: Per Sapphire Peterson NP hold for hypoglycemia) 2118 (Given - Provider: Ally Infante, YUNI) mometasone-formoterol (DULERA) 100-5 MCG/ACT inhaler 2 puff 2 puff, Inhalation, 2 times daily, First dose on Wed07/31/24 at 1900, Until Discontinued, Following administration, rinse mouth with water after use (do not swallow) to reduce risk of oral candidiasis. 07 (Given - Provider: Kristy Combs RRT)1822 (Given - Provider: Johan Salmeron RRT) 0742 (Given - Provider: Domingo Zapata, DENI)181 (Given - Provider: Domingo Zapata, DENI) 0734 (Given - Provider: Domingo Zapata RRT) nystatin (MYCOSTATIN) powder Topical, 2 times daily, First dose on Wed08/01/24 at 1445, Until Discontinued 153 (Given - Provider: Abril Contreras RN)2112 (Given - Provider: Ally Infante RN) 0938 (Given - Provider: Marlin Darnell RN)2119 (Given - Provider: Ally Infante RN) 0848 (Given - Provider: Abril Contreras, YUNI) pantoprazole EC (PROTONIX) tablet 40 mg 40 mg, Oral, Daily, First dose on Wed07/31/24 at 1815, Until Discontinued, Do not break, chew, or crush. 0834 (Given - Provider: Abril Contreras RN) 0938 (Given - Provider: Marlin Darnell, YUNI) 0849 (Given - Provider: Abril Contreras RN) pregabalin (LYRICA) capsule 150 mg 150 mg, Oral, 2 times daily, First dose on Wed08/01/24 at 2100, Until Discontinued 2108 (Given - Provider: Ally Infante RN) 0937 (Given - Provider: Marlin Darnell RN)2114 (Given - Provider: Ally Infante RN) 0848 (Given - Provider: Abril Contreras, YUNI) sacubitril-valsartan (ENTRESTO) 24-26 MG tablet 1 tablet 1 tablet, Oral, 2 times daily, First dose on Wed07/31/24 at 2100, Until Discontinued 0834 (Given - Provider: Abril Contreras RN)2109 (Given - Provider: Ally Infante RN) 0937 (Given - Provider: Marlin Darnell RN)2115 (Given - Provider: Ally Infante RN) 0848 (Given - Provider: Abril Contreras, YUNI) sertraline (ZOLOFT) tablet 50 mg 50 mg, Oral, Daily, First dose on Wed07/31/24 at 1815, Until Discontinued 0834 (Given - Provider: Abril Contreras RN) 0938 (Given - Provider: Marlin Darnell RN) 0849 (Given - Provider: Abril Contreras, YUNI) tiotropium (SPIRIVA RESPIMAT) 2.5 MCG/ACT inhaler 2 puff 2 puff, Inhalation, Daily, First dose on Wed07/31/24 at 1815, Until Discontinued, Common canister 0726 (Given - Provider: Kristy Combs, DENI) 0741 (Given - Provider: Domingo Zapata, DENI) 0732 (Given - Provider: Domingo Zapata, DENI) traZODone (DESYREL) tablet 300 mg 300 mg, Oral, Nightly at bedtime, First dose on Wed07/31/24 at 2100, Until Discontinued 2108 (Given - Provider: Ally Infante RN) 2115 (Given - Provider: Ally Infante RN) PRN Medication Order 08/01/2024 08/02/2024 08/03/2024 albuterol sulfate HFA 108 (90 Base) MCG/ACT inhaler 2 puff 2 puff, Inhalation, Every 4 hours PRN, Wheezing, Shortness of breath, Starting on Wed07/31/24 at 1748, Until Taisha 08/03/24 at 1513 docusate sodium (COLACE) capsule 100 mg 100 mg, Oral, DAILY PRN, Constipation, Starting on Wed07/31/24 at 1757, Until Taisha 08/03/24 at 1513 HYDROcodone-acetaminophe n (NORCO) 10-325 MG tablet 1 tablet 1 tablet, Oral, Every 6 hours PRN, Moderate pain (Scale 4 - 7), Starting on Wed07/31/24 at 1748, Until Taisha 08/03/24 at 1513, Maximum dose of acetaminophen is 4000 mg from all sources in 24 hours. 0406 (Given - Provider: Ally Infante RN)1151 (Given - Provider: Abril Contreras RN)2108 (Given - Provider: Ally Infante RN) 0257 (Given - Provider: Ally Infante RN)0937 (Given - Provider: Marlin Darnell, YUNI)1516 (Given - Provider: Marlin Darnell, YUNI)2115 (Given - Provider: Ally Infante RN) 06 (Given - Provider: Ally Infante, YUNI) hydrOXYzine (ATARAX) tablet 25 mg 25 mg, Oral, 3 times daily PRN, Itching, Starting on Wed08/01/24 at 0851, Until Wed08/03/24 at 1513 1151 (Given - Provider: Abril Contreras RN) 0030 (Given - Provider: Ally Infante, RN) documented in this encounter Additional Health Concerns Assessment Noted Time PHQ-9 Depression Total Score: 0 12/02/19 22 1:18 PM CDT documented as of this encounter Care Teams Cold Header Relationship Specialty Start Date End Date Megan Infante MD [address] [place] [address] PCP - General FAMILY PRACTICE 04/06/16 Zaki Ortiz MD [address] [place] [address] Consulting Physician PULMONARY DISEASE 07/12/19 Concetta Acevedo MD [address] [place] [address] [id number] Surgeon NEUROLOGICAL SURGERY 12/16/22 Jeff Grace MD [address] [place] [address] [id number] Consulting Physician INTERNAL MEDICINE 02/11/23 Brit Gonzáles MD [address] [place] [address] Consulting Physician CARDIOVASCULAR DISEASE 12/29/23 documented as of this encounter
--- OUTSIDE RECORDS SUMMARY | 2024-09-03 19:06 | XMS_ITS | Encounter Summary ---
Author Organization [facility] Address [facility] [facility] [place] [address] [place] [address] Care Team Providers Care Public Speaking Coach Name Role Phone Megan Infante MD Primary Care Provider [phone] Zaki Ortiz MD Unavailable [phone] Concetta Acevedo MD Unavailable + [phone] Jeff Grace MD Unavailable Brit Gonzáles MD Unavailable Encounter Details Date Type Department Care Team (Latest Contact Info) Description 05/30/2024 Travel Social History Tobacco Use Types Packs/Day Years Used Date Smoking Tobacco: Former Passive Smoke Exposure: Past Smokeless Tobacco: Former Chew Alcohol Use Standard Drinks/Week Comments Yes 0 (1 standard drink = 0.6 oz pur e alcohol) 4 beers per week [facility] Utilities Answer Date Recorded In the past 12 months has [facility] [employer], gas, oil, or water [employer] threatened to shut off services in [...] declined 02/16/2023 How often do you attend religion or confucianist serv ices? Patient declined 02/16/2023 Do you belong to any clubs o r organizations such as religion groups, unions, fraternal or athletic groups, or [...] move on to questions 3-9 0 12/01/2021 [facility] - Occupational [...] money to buy more. Never true 07/12/20 23 Within the past 12 months, t he [...] No 07/12/2023 Housing Stability Vital Sign Answer [place] [...] place to sleep or slept in a long term (including now)? Patient declined 07/12/2023 Sex and [...] Date Author Status No 07/12/2023 6:58 PM ELECTRONICS ENGINEERING MANAGER Liliana Gutierrez, RN Active documented in this encounter Plan of Treatment Upcoming Encounters Date Type Department Care Team (Late st Contact Info) Description 09/25/2024 2:00 PM ELECTRONICS ENGINEERING MANAGER Appointment [facility] [address] [facility] [place] [address] Zayra Powell, LICENSED PRACTICAL NURSE INSTRUCTOR [address] [facility] [place] [place] [address] 10/16/2024 3:30 PM ELECTRONICS ENGINEERING MANAGER Office Visit [facility] [address] [facility] [place] [address] Brit Gonzáles MD [address] [place] [address] documented as of this encounter [...] documented as of this encounter Care Teams Public Speaking Coach Relationship Specialty Start Date End Date Megan Infante MD [address] [place] [address] PCP - General FAMILY PRACTICE 04/06/16 Zaki Ortiz MD [address] [place] [address] Consulting Physician PULMONARY DISEASE 07/12/19 Concetta Acevedo MD [address] [place] [address] Surgeon NEUROLOGICAL SURGERY 12/16/22 Jeff Grace MD [address] [place] [address] Consulting Physician INTERNAL MEDICINE 02/11/23 Brit Gonzáles MD [address] [place] [address] Consulting Physician CARDIOVASCULAR DISEASE 12/29/23 documented as of this encounter
--- OUTSIDE RECORDS SUMMARY | 2024-09-03 19:06 | XMS_ITS | Encounter Summary ---
Author Organization [facility] Address [facility] [facility] [place] [address] [place] [address] Care Team Providers Care Travel Manager Name Role Phone Megan Infante MD Primary Care Provider [phone] Zaki Ortiz MD Unavailable [phone] Concetta Acevedo MD Unavailable [phone] Jeff Grace MD Unavailable Brit Gonzáles MD Unavailable Reason for Visit * Reason Comments New Patient Ventral hernia Encounter Details Date Type Department Care Team (Late st Contact Info) Description 08/24/2024 1:15 PM DYE REEL OPERATOR Office Visit [facility] [address] [place] [address] Arnold Hernandez MD [address] [place] [address] New Patient (Ventral hernia) Social History Tobacco Use Types Packs/Day Years Used Date Smoking Tobacco: Former Passive Smoke Exposure: Past Smokeless Tobacco: Former Chew Tobacco Cessation:Counseling Given: No Alcohol Use Standard Drinks/Week Comments Yes 0 (1 standard drink = 0.6 oz pur e alcohol) 4 beers per week [facility] Utilities Answer Date Recorded In the [...] declined 02/16/2023 How often do you attend confucianism or christianity serv ices? Patient declined 02/16/2023 Do you belong to any clubs o r organizations such as confucianism groups, unions, fraternal or athletic groups, or [...] move on to questions 3-9 0 12/01/2021 [facility] Occupat ional Health - Occupational Stress [...] place to sleep or slept in a chcf (including now)? Patient declined 07/12/2023 Housing Stability [...] any time in the past [address] [facility], were you homeless or living in a chcf (including now)? No 07/31/2024 Sex and Gender [...] Sign Reading Time Taken Comments Blood Pressure 131/78 08/24/2024 1:26 PM DYE REEL OPERATOR Pulse 68 08/24/2024 1:26 PM DYE REEL OPERATOR Temperature - - Respiratory Rate 16 08/24/2024 1:26 PM DYE REEL OPERATOR Oxygen Saturation - - Inhaled Oxygen Concentration - - Weight 106.6 kg (235 lb) 08/24/2024 1:26 PM DYE REEL OPERATOR Height 167.6 cm (5' 6 ) 08/24/2024 1:26 PM DYE REEL OPERATOR Body Mass Index 37.93 08/24/2024 1:26 PM DYE REEL OPERATOR documented in this encounter Functional Status * Are you deaf or do you have serious difficulty hearing Answer Date of Assessment Author Status No 07/31/2024 5:50 PM DYE REEL OPERATOR Abril Contreras RN Active * Are you blind or do you have serious difficulty seeing, even when wearing glasses? Answer Date of Assessment Author Status No 07/31/2024 5:50 PM DYE REEL OPERATOR Abirl Contreras RN Active * Do you have serious difficulty walking or climbing stairs? Answer Date of Assessment Author Status Yes 07/31/2024 5:50 PM DYE REEL OPERATOR Abril Contreras RN Active * Do you have difficulty dressing or bathing? Answer Date of Assessment Author Status Yes 07/31/2024 5:50 PM DYE REEL OPERATOR Abril Contreras RN Active * Because of a physical, mental, or emotional condition, do you have difficulty doing errands alone such as visiting a doctor's office or shopping? Answer Date of Assessment Author Status No 07/31/2024 5:50 PM DYE REEL OPERATOR Abril Contreras RN Active documented as of this encounter Mental Status * Because of a physical, mental, or emotional condition, do you have serious difficulty concentrating, remembering, or making decisions? Answer Entry Date Author Status Yes 07/31/2024 5:50 PM DYE REEL OPERATOR Abril Contreras RN Active documented in this encounter Plan of Treatment Upcoming Encounters Date Type Department Care Team (Late st Contact Info) Description 09/25/2024 2:00 PM DYE REEL OPERATOR Appointment [facility] [address] [place] [address] Zayra Powell, [facility] [address] [place] [address] 10/16/2024 3:30 PM DYE REEL OPERATOR Office Visit [facility] [address] [place] [address] Brit Gonzáles MD [address] [place] [address] documented as of this encounter Goals Goal [...] documented as of this encounter Care Teams Travel Manager Relationship Specialty Start Date End Date Meagn Infante MD [address] [place] [address] PCP - General FAMILY PRACTICE 04/06/16 Zaki Ortiz MD [address] [place] [address] Consulting Physician PULMONARY DISEASE 07/12/19 Concetta Acevedo MD [address] [place] [address] Surgeon NEUROLOGICAL SURGERY 12/16/22 Jeff Grace MD [address] [place] [address] Consulting Physician INTERNAL MEDICINE 02/11/23 Brit Gonzáles MD [address] [place] [address] Consulting Physician CARDIOVASCULAR DISEASE 12/29/23 documented as of this encounter
--- OUTSIDE RECORDS SUMMARY | 2024-09-03 19:06 | XMS_ITS | Encounter Summary ---
Author Organization [facility] Address [facility] [facility] [place] [address] [place] [address] Care Team Providers Care E Marketing Specialist Name Role Phone Megan Infante MD Primary Care Provider [phone] Zaki Ortiz MD Unavailable [phone] Concetta Acevedo MD Unavailable + [phone] Jeff Grace MD Unavailable Brit Gonzáles MD Unavailable Encounter Details Date Type Department Care Team (Latest Contact Info) Description 05/22/2024 Travel Social History Tobacco Use Types Packs/Day Years Used Date Smoking Tobacco: Former Passive Smoke Exposure: Past Smokeless Tobacco: Former Chew Alcohol Use Standard Drinks/Week Comments Yes 0 (1 standard drink = 0.6 oz pur e alcohol) 4 beers per week [facility] Utilities Answer Date Recorded In the past 12 months has [facility], gas, oil, or water [employer] threatened to shut off services in your [...] declined 02/16/2023 How often do you attend samaritan or mosque serv ices? Patient declined 02/16/2023 Do you belong to any clubs o r organizations such as samaritan groups, unions, fraternal or athletic groups, or [...] on to questions 3-9 0 12/01/2021 [facility] Occupat ional Health - Occupational [...] place to sleep or slept in a prison (including now)? Patient declined 07/12/2023 Sex and [...] Date Author Status No 07/12/2023 6:58 PM RAIL WALKER Liliana Gutierrez, RN Active documented in this encounter Plan of Treatment Upcoming Encounters Date Type Department Care Team (Late st Contact Info) Description 09/25/2024 2:00 [address] Appoint[address] [facility] [address] [facility] [place] [address] Zayra Powell, PRODUCT DESIGN SPECIALIST [address] [facility] [place] [address] 10/16/2024 3:30 PM RAIL WALKER Office Visit [facility] [address] [facility] [place] [address] Brit Gonzáles MD [address] [place] [address] documented as of this encounter [...] documented as of this encounter Care Teams E Marketing Specialist Relationship Specialty Start Date End Date Megan Infante MD [address] [place] [address] PCP - General FAMILY PRACTICE 04/06/16 Zaki Ortiz MD [address] [place] [address] Consulting Physician PULMONARY DISEASE 07/12/19 Concetta Acevedo MD [address] [place] [address] Surgeon NEUROLOGICAL SURGERY 12/16/22 Jeff Grace MD [address] [place] [address] Consulting Physician INTERNAL MEDICINE 02/11/23 Brit Gonzáles MD [address] [place] [address] Consulting Physician CARDIOVASCULAR DISEASE 12/29/23 documented as of this encounter
--- OUTSIDE RECORDS SUMMARY | 2024-09-03 19:06 | XMS_ITS | Encounter Summary ---
Author Organization [facility] Address [facility] [facility] [place] [address] [place] [address] Care Team Providers Care Auto Washer Name Role Phone Megan Infante MD Primary Care Provider [phone] Zaki Ortiz MD Unavailable [phone] Concetta Acevedo MD Unavailable + [phone] Jeff Grace MD Unavailable Brit Gonzáles MD Unavailable Encounter Details Date Type Department Care Team (Latest Contact Info) Description 08/24/2024 Travel Social History Tobacco Use Types Packs/Day Years Used Date Smoking Tobacco: Former Passive Smoke Exposure: Past Smokeless Tobacco: Former Chew Alcohol Use Standard Drinks/Week Comments Yes 0 (1 standard drink = 0.6 oz pur e alcohol) 4 beers per week [facility] Utilities Answer Date Recorded In the past 12 months has [facility] [employer], gas, oil, or water [employer] threatened to shut off services in your [...] How often do you attend pentecostal or yarsanism serv ices? Patient declined 02/16/2023 Do you [...] move on to questions 3-9 0 12/01/2021 [facility] Occupat ional Health - Occupational [...] place to sleep or slept in a correction (including now)? Patient declined 07/12/2023 Housing Stability Vital Sign Answer Stevensno e Recorded In the last 12 months, was t here a time when you were not able to pay the mortgage or rent on time? No 07/31/2024 In the past 12 months, how m any times have you moved where you were living? 0 07/31/2024 At any time in the past 12 m [facility], were you homeless or living in a correction (including now)? No 07/31/2024 Sex and Gender [...] Assessment Author Status No 07/31/2024 5:50 PM CHILD CARE ATTENDANT Abril Contreras RN Active documented as of this encounter Mental Status * Because of a physical, mental, or emotional condition, do you have serious difficulty concentrating, remembering, or making decisions? Answer Entry Date Author Status Yes 07/31/2024 5:50 PM CHILD CARE ATTENDANT Abril Contreras RN Active documented in this encounter Plan of Treatment Upcoming Encounters Date Type Department Care Team (Late st Contact Info) Description 09/25/2024 2:00 PM CHILD CARE ATTENDANT Appointment [facility] [address] [place] [address] Zayra Powell, CAUSTIC ROOM ATTENDANT [address] [place] [address] 10/16/2024 3:30 PM CHILD CARE ATTENDANT Office Visit [facility] [id number] [place] [address] Brit Gonzáles MD [address] [place] [address] documented as of this encounter [...] documented as of this encounter Care Teams Auto Washer Relationship Specialty Start Date End Date [place] [address] PCP - General FAMILY PRACTICE 04/06/16 [place] [address] Consulting Physician PULMONARY DISEASE 07/12/19 Concetta Acevedo MD [address] [place] [address] Surgeon NEUROLOGICAL SURGERY 12/16/22 Jeff Grace MD [address] [place], [place] [address] Consulting Physician INTERNAL MEDICINE 02/11/23 Brit Gonzáles MD [address] [place], [place] [address] Consulting Physician CARDIOVASCULAR DISEASE 12/29/23 documented as of this encounter
--- OUTSIDE RECORDS SUMMARY | 2024-09-03 19:06 | XMS_ITS | Encounter Summary ---
Author Organization [facility] Address [facility]6 [facility] [place] [address] [place] [address] Care Team Providers Care Leak Operator Paraffin Plant Name Role Phone Megan Infante MD Primary Care Provider [phone] Zaki Ortiz MD Unavailable [phone] Concetta Acevedo MD Unavailable + [phone] Jeff Grace MD Unavailable Brit Gonzáles MD Unavailable Encounter Details Date Type Department Care Team (Latest Contact Info) Description 08/08/2024 Travel Social History Tobacco Use Types Packs/Day Years Used Date Smoking Tobacco: Former Passive Smoke Exposure: Past Smokeless Tobacco: Former Chew Alcohol Use Standard Drinks/Week Comments Yes 0 (1 standard drink = 0.6 oz pur e alcohol) 4 beers per week [facility] Utilities Answer Date Recorded In the past 12 months has [facility] [employer], gas, oil, or water [employer] threatened to shut off services in your [...] declined 02/16/2023 How often do you attend evangelical or samaritan serv ices? Patient declined 02/16/2023 Do you belong to any clubs o r organizations such as evangelical groups, unions, fraternal or athletic groups, or [...] move on to questions 3-9 0 12/01/2021 [facility] - [...] place to sleep or slept in a group home (including now)? Patient declined 07/12/2023 Housing Stability [...] any time in the past 12 [facility], were you homeless or living in a group home (including now)? No 07/31/2024 Sex and Gender [...] Assessment Author Status No 07/31/2024 5:50 PM HOSPITAL MANAGER Abril Contreras RN Active documented as of this encounter Mental Status * Because of a physical, mental, or emotional condition, do you have serious difficulty concentrating, remembering, or making decisions? Answer Entry Date Author Status Yes 07/31/2024 5:50 PM HOSPITAL MANAGER Abril Contreras RN Active documented in this encounter Plan of Treatment Upcoming Encounters Date Type Department Care Team (Late st Contact Info) Description 09/25/2024 2:00 PM HOSPITAL MANAGER Appointment [facility] [address] [place] [address] Zayra Powell, SOLUTIONS ARCHITECT [address] [place] [address] 10/16/2024 3:30 PM HOSPITAL MANAGER Office Visit [facility] [address] [place] [address] Brit Gonzáles MD [address] [place] [address] documented as of this encounter [...] documented as of this encounter Care Teams Leak Operator Paraffin Plant Relationship Specialty Start Date End [place] [address] PCP - General FAMILY PRACTICE 04/06/16 [place] [address] Consulting Physician PULMONARY DISEASE 07/12/19 Concetta Acevedo MD [address] [place] [address] Surgeon NEUROLOGICAL SURGERY 12/16/22 Jeff Grace MD [address] [place], [place] [address] Consulting Physician INTERNAL MEDICINE 02/11/23 Brit Gonzáles MD [address] [place], [place] [address] Consulting Physician CARDIOVASCULAR DISEASE 12/29/23 documented as of this encounter
--- OUTSIDE RECORDS SUMMARY | 2024-09-03 19:06 | XMS_ITS | Encounter Summary ---
Author Organization [facility] Address [facility] [place] [address] [place] [address] Care Team Providers Care Channel Director Name Role Phone Megan Infante MD Primary Care Provider [phone] Zaki Ortiz MD Unavailable [phone] Concetta Acevedo MD Unavailable + [phone] Jeff Grace MD Unavailable Brit Gnozáles MD Unavailable Encounter Details Date Type Department Care Team (Late st Contact Info) Description 05/30/2024 12:54 PM CDT - 05/30/2024 11:59 PM CDT Hospital Encounter [facility] [address] [place] [address] Zayra Powell, [facility] [address] [place] [address] Discharge Disposition: Home or Self Care (Routine Discharge) Social History Tobacco Use Types Packs/Day Years Used Date Smoking Tobacco: Former Passive Smoke Exposure: Past Smokeless Tobacco: Former Chew Alcohol Use Standard Drinks/Week Comments Yes 0 (1 standard drink = 0.6 oz pur e alcohol) 4 beers per week [facility] Utilities Answer Date Recorded In the past 12 months has e electric, gas, oil, or water [employer] threatened to shut off services in your [...] declined 02/16/2023 How often do you attend scientologist or jain serv ices? Patient declined 02/16/2023 Do you belong to any clubs o r organizations such as scientologist groups, unions, fraternal or athletic groups, or [...] to questions 3-9 0 12/01/2021 [facility]ational Stress Questionnaire [...] place to sleep or slept in a assisted (including now)? Patient declined 07/12/2023 Sex and [...] 02/18/2023 4 documented as of this encounter Plan of Treatment Upcoming Encounters Date Type Department Care Team (Late st Contact Info) Description 09/25/2024 2:00 PM MASTER TAX ADVISOR Appointment [facility] [address] [place] [address] Zayra Powell, CHESS INSTRUCTOR [address] [place] [address] 10/16/2024 3:30 PM MASTER TAX ADVISOR Office Visit [facility] [address] [place] [address] Brit Gonzáles MD [address] [place] [address] documented as of this encounter Goals Goal [...] documented as of this encounter Care Teams Channel Director Relationship Specialty Start Date End Date Megan Infante MD [address] [facility] [place] [address] PCP - General FAMILY PRACTICE 04/06/16 Zaki Ortiz MD [address] [facility] [place] [address] Consulting Physician PULMONARY DISEASE 07/12/19 Concetta Acevedo MD [address] [place] [address] Surgeon NEUROLOGICAL SURGERY 12/16/22 Jeff Grace MD [address] [place] [address] Consulting Physician INTERNAL MEDICINE 02/11/23 Brit Gonzáles MD 9 [place] [address] Consulting Physician CARDIOVASCULAR DISEASE 12/29/23 documented as of this encounter
--- OUTSIDE RECORDS SUMMARY | 2024-09-03 19:07 | XMS_ITS | Encounter Summary ---
Author Organization [facility] Address [facility]6 [facility]. [place], [place] [address] [place] [address] Care Team Providers Care Financial Services Rep Name Role Phone Megan Infante MD Primary Care Provider [phone] Zaki Ortiz MD Unavailable [phone] Concetta Acevedo MD Unavailable + [phone] Jeff Grace MD Unavailable Brit Gonzáles MD Unavailable Reason for Referral * Imaging (Routine) - Closed Specialty Diagnoses / Procedures Referred By Ynug sequeira Referred To Contact RADIOLOGY Diagnoses Chronic venous insufficiency Varicose veins of bilateral lower extremities with other complications PAD (peripheral artery disease) (CMS/HCC) Procedures Bramasol STELLA IES Jeff Pulido MD [address] [place] [address] Phone: tel: fax: Referral ID Status Reason Start Date Expiration Date Visits Re quested Visits Authorized [id number] Closed 04/17/2024 05/18/2025 1 1 Reason for Visit * Imaging (Routine) - Closed Specialty Diagnoses / Procedures Referred By Contcarmen sequeira Referred To Contact RADIOLOGY Diagnoses Chronic venous insufficiency Varicose veins of bilateral lower extremities with other complications PAD (peripheral artery disease) (CMS/HCC) Procedures Elastifile Jeff Pulido MD [address] [place] [address] Phone: tel: fax: Referral ID Status Reason Start Date Expiration Date Visits Re quested Visits Authorized [id number] Closed 04/17/2024 05/18/2025 1 1 Encounter Details Date Type Department Care Team (Latest Contact Info) Description 04/27/2024 2:13 PM CDT - 04/27/2024 2:47 PM CDT Hospital Encounter [facility] [address] [place] [address] Jeff Grace MD [address] [place], [place] [address] Discharge Disposition: Home or Self Care (Routine Discharge) Social History Tobacco Use Types Packs/Day Years Used Date Smoking Tobacco: Former Passive Smoke Exposure: Past Smokeless Tobacco: Former Chew Alcohol Use Standard Drinks/Week Comments Yes 0 (1 standard drink = 0.6 oz pur e alcohol) 4 beers per week [facility] Utilities Answer Date Recorded In the past 12 months has [employer], gas, oil, or water [employer] threatened to shut off services in your [...] declined 02/16/2023 How often do you attend presybeterian or sabianism serv ices? Patient declined 02/16/2023 Do you belong to any clubs o r organizations such as presybeterian groups, unions, fraternal or athletic groups, or [...] move on to questions 3-9 0 12/01/2021 [facility] Occupat ional Health - [...] place to sleep or slept in a custodial (including now)? Patient declined 07/12/2023 Sex and [...] by mouth 2 (two) times daily. 10/09/2022 cephALEXin (KEFLEX) 500 MG capsuleIndications: Enterococcus faecalis infection Take 1 capsule (500 mg total) by mouth 4 (four) times daily for 10 days. 40 capsule 04/28/2024 4 ciprofloxacin (CIPRO) 500 MG tabletIndications:P seudomonas infection Take 1.5 tablets (750 mg total) by mouth 2 (two) times daily for 10 days. 30 tablet 04/28/2024 4 CIRCAID COMPRESSION WRAP, DME,Indications:Tabby icose veins of [...] st Contact Info) Description 09/25/2024 2:00 PM BODS DEVELOPER Appointment [facility] [address] [facility] [place] [address] Zayra Powell, DIGITAL PRE PRESS OPERATOR [address] [facility] [place] [address] 10/16/2024 3:30 PM BODS DEVELOPER Office Visit [facility] [facility] [address] [place] [phone] Brit Gonzáles MD [address] [place] [address] documented as of this encounter Goals Goal Patient Goal Type Associated Problems Recent Progress Patient-Stated? Author Family - family caregiver with be involved in care transitions and discharge planning Lifestyle Karen Diane RN documented as of this encounter Procedures Procedure Name Priority Date/Time Associated Diagnosis Comments [facility] STELLA [facility]TD ELZA Routine 04/27/2024 2:54 PM CDT Chronic venous insufficiency Varicose veins of bilateral lower extremities with other complications PAD (peripheral artery disease) (CMS/HCC) documented in this encounter Results * [facility]A [facility] ELZA (04/27/2024 2:54 PM CDT) Anatomical Region Laterality Modality Extremity Ultrasound 04/27/2024 2:19 PM CDT Narrative 04/28/2024 3:12 PM CDT ?Outreach Arterial Doppler STELLA ?Vascular Report Pat.Name: ??Mendez Lay ?Pat.ID: ?[id number] ? St.Date: ?? 04/27/2024 ? Refer.MD: ??[facility], [facility] Exam Time: 2:19:00 PM ? Study Type:OUTREACH ART DOPPLER - STELLA Height: ?66 in ?Age: ??1955,68Y ? Sex: ? M ? Sonogrphr: jl Gupta rdms, rvt, rdcs Pat. Stat.:Outpatient ? Reason for Study:Chronic venous insufficiency, Varicose veins of bilateral lower extremities with other complications, PAD (peripheral artery disease), Wound BLE Procedures: Study performed at [place], [place] and interpreted by [facility]. ++++++++++++++++++++++++++++++++++++ SUMMARY: ++++++++++++++++++++++++++++++++++++ STELLA Rt: Unable to assess the STELLA due to circumferentially calcified blood vessels at the ankle. STELLA Rt: STELLA greater than 1.4 which suggests the presence of calcific medial sclerosis. STELLA Rt: Pulse volume tracings suggest mild peripheral arterial occlusive disease. STELLA Rt: The toe pressure is 79 mmHg. STELLA Rt: The TBI is 0.62. STELLA Rt: TBI is within abnormal range. STELLA Lt: Unable to assess the STELLA due to circumferentially calcified blood vessels at the ankle. STELLA Lt: STELLA greater than 1.4 which suggests the presence of calcific medial sclerosis. STELLA Lt: Pulse volume tracings suggest mild peripheral arterial occlusive disease. STELLA Lt: The toe pressure is 93 mmHg. STELLA Lt: The TBI is 0.73. STELLA Lt: TBI is within abnormal range. ++++++++++++++++++++++++++++++++++++ FINDINGS: ++++++++++++++++++++++++++++++++++++ STELLA Rt: ?? Unable to assess the STELLA due to circumferentially calcified ?blood vessels at the ankle. STELLA greater than 1.4 which ?suggests the presence of calcific medial sclerosis. Pulse ?volume tracings suggest mild peripheral arterial occlusive ?disease. The toe pressure is 79 mmHg. The TBI is 0.62. TBI ?is within abnormal range. STELLA Lt: ?? Unable to assess the STELLA due to circumferentially calcified ?blood vessels at the ankle. STELLA greater than 1.4 which ?suggests the presence of calcific medial sclerosis. Pulse ?volume tracings suggest mild peripheral arterial occlusive ?disease. The toe pressure is 93 mmHg. The TBI is 0.73. TBI ?is within abnormal range. ++++++++++++++++++++++++++++++++++++ MEASUREMENTS: ++++++++++++++++++++++++++++++++++++ ?PRESSURES Right Brachial ?? Brach P ?123 mmHg ? Right Ankle DP ?? AnkleDP P ?240 mmHg ? Right Ankle PT ?? AnklePT P ?240 mmHg ? Right Great Toe ?? GreatToe P ?79 mmHg ? Right STELLA PT ?? STELLA PT ?1.88 ? Right STELLA DP ?? STELLA DP ?1.88 ? Right TBI ?? TBI ?0.617 ? Left Brachial ?? Brach P ?128 mmHg ? Left Ankle DP ?? AnkleDP P ?240 mmHg ? Left Ankle PT ?? AnklePT P ?240 mmHg ? Left Great Toe ?? GreatToe P ?93 mmHg ? Left STELLA PT ?? STELLA PT ?1.88 ? Left STELLA DP ?? STELLA DP ?1.88 ? Left TBI ?? TBI ?0.727 ? <Electronic Signature> 04/28/2024 03:12 PM Jeff Grace M.D. Procedure Note Jeff Grace MD - 04/28/2024 [facility] Arterial Doppler STELLA Vascular Report Pat.Name: Mendez Lay Pat.ID: [id number] .Date: 04/27/2024 Refer.MD: [facility] Exam Time: 2:19:00 PM Study Type:[facility] ART DOPPLER - STELLA Height: 66 in Age: 11 1955,68Y Sex: M Sonogrphr: jl Gupta rdms, rvt, rdcs Pat. Stat.:Outpatient Reason for Study:Chronic venous insufficiency, Varicose veins of bilateral lower extremities with other complications, PAD (peripheral artery disease), Wound BLE Procedures: Study performed at [place], [place] and interpreted by [facility]. ++++++++++++++++++++++++++++++++++++ SUMMARY: ++++++++++++++++++++++++++++++++++++ STELLA Rt: Unable to assess the STELLA due to circumferentially calcified blood vessels at the ankle. STELLA Rt: STELLA greater than 1.4 which suggests the presence of calcific medial sclerosis. STELLA Rt: Pulse volume tracings suggest mild peripheral arterial occlusive disease. STELLA Rt: The toe pressure is 79 mmHg. STELLA Rt: The TBI is 0.62. STELLA Rt: TBI is within abnormal range. STELLA Lt: Unable to assess the STELLA due to circumferentially calcified blood vessels at the ankle. STELLA Lt: STELLA greater than 1.4 which suggests the presence of calcific medial sclerosis. STELLA Lt: Pulse volume tracings suggest mild peripheral arterial occlusive disease. STELLA Lt: The toe pressure is 93 mmHg. STELLA Lt: The TBI is 0.73. STELLA Lt: TBI is within abnormal range. ++++++++++++++++++++++++++++++++++++ FINDINGS: ++++++++++++++++++++++++++++++++++++ STELLA Rt: Unable to assess the STELLA [...] arterial occlusive disease. The toe pressure is 93 mmHg. The TBI is 0.73. TBI is within abnormal range. ++++++++++++++++++++++++++++++++++++ MEASUREMENTS: ++++++++++++++++++++++++++++++++++++ PRESSURES Right Brachial Brach P 123 mmHg Right Ankle DP AnkleDP P 240 mmHg Right Ankle PT AnklePT P 240 mmHg Right Great Toe GreatToe P 79 mmHg Right STELLA PT STELLA PT 1.88 Right STELLA DP STELLA DP 1.88 Right TBI TBI 0.617 Left Brachial Brach P 128 mmHg Left Ankle DP AnkleDP P 240 mmHg Left Ankle PT AnklePT P 240 mmHg Left Great Toe GreatToe P 93 mmHg Left STELLA PT STELLA PT 1.88 Left STELLA DP STELLA DP 1.88 Left TBI TBI 0.727 <Electronic Signature> 04/28/2024 03:12 PM Jeff Grace M.D. Jeff Grace MD VASC Final Result documented in this encounter Visit Diagnoses Diagnosis Chronic venous insufficiency Unspecified venous (peripheral) insufficiency Varicose veins of bilateral lower extremities with other complications PAD (peripheral artery disease) ([facility]/HCC) Peripheral vascular disease, unspecified documented in this encounter Additional Health Concerns Assessment Noted Time PHQ-9 Depression Total Score: 0 12/02/19 22 1:18 PM CDT documented as of this encounter Care Teams Financial Services Rep Relationship Specialty Start Date End Date Megan Infante MD [address] [facility] [place] [address] PCP - General FAMILY PRACTICE 04/06/16 Zaki Ortiz MD [address] [facility] [place] [address] Consulting Physician PULMONARY DISEASE 07/12/19 Concetta Acevedo MD [address] [place] [address] Surgeon NEUROLOGICAL SURGERY 12/16/22 Jeff Grace MD [address] [place] [address] Consulting Physician INTERNAL MEDICINE 02/11/23 Brit Gonzáles MD [address] [place] [address] Consulting Physician CARDIOVASCULAR DISEASE 12/29/23 documented as of this encounter
--- OUTSIDE RECORDS SUMMARY | 2024-09-03 19:07 | XMS_ITS | Encounter Summary ---
Author Organization [facility] Address [facility]6 [facility] [place] [address] [place] [address] Care Team Providers Care Bit Setter Name Role Phone Megan Infante MD Primary Care Provider [phone] Zaki Ortiz MD Unavailable [phone] Concetta Acevedo MD Unavailable + [phone] Jeff Grace MD Unavailable Brit Gonzáles MD Unavailable Encounter Details Date Type Department Care Team (Late st Contact Info) Description 04/27/2024 4:11 PM CDT - 04/27/2024 11:59 PM T Hospital Encounter [facility] [address] [place] [place] [address] Megan Infante MD [address] [place] [address] Discharge Disposition: Home or Self Care (Routine Discharge) Social History Tobacco Use Types Packs/Day Years Used Date Smoking Tobacco: Former Passive Smoke Exposure: Past Smokeless Tobacco: Former Chew Alcohol Use Standard Drinks/Week Comments Yes 0 (1 standard drink = 0.6 oz pur e alcohol) 4 beers per week [facility] Utilities Answer Date Recorded In [...] declined 02/16/2023 How often do you attend confucianist or denominational serv ices? Patient declined 02/16/2023 Do you belong to any clubs o r organizations such as confucianist groups, unions, fraternal or athletic groups, or [...] on to questions 3-9 0 12/01/2021 [facility] - Occupational Stress Questionnaire Answer Date [...] a fdc (including now)? Patient declined 07/12/2023 Sex and [...] 2 (two) times daily. 15 g 07/16/2023 warfarin (COUMADIN) 1 MG tablet Take 1 [...] st Contact Info) Description 09/25/2024 2:00 [address]OR Appointment [facility] [address] [place] [address] [address] Zayra Powell, [facility] [address] [place] [address] 10/16/2024 3:30 PM COSTUME DIRECTOR Office Visit [facility] [address] [place] [address] Brit Gonzáles MD [address] [place] [address] documented as of this encounter Goals Goal Patient Goal Type Associated Problems Recent Progress Patient-Stated? Author Family - family caregiver with be involved in care transitions and discharge planning Lifestyle No Karen Quezada RN documented as of this encounter Procedures Procedure Name Priority Date/Time Associated Diagnosis Comments PROTHROMBIN TIME, VENOUS Routine 04/27/2024 2:55 PM CDT A-fib ([facility]/HCC HHS/HCC) documented in this encounter Results * (ABNORMAL) PROTIME/INR, VENOUS (04/27/2024 2:55 PM CDT) PROTIME 30.2(H) 9.4 - 12.5 SEC 04/27/2024 4:19 PM CDT [facility] INR 2.6(H) 0.8 - 1.0 04/27/2024 4:19 PM CDT [facility] 04/27/2024 2:55 PM CDT Megan Infante MD LABORATORY Final Result [facility] [address] [place] [address], documented in this encounter Visit Diagnoses Diagnosis A-fib ([facility] HHS/HCC) Atrial fibrillation documented in this encounter Additional Health Concerns Assessment Noted Time PHQ-9 Depression Total Score: 0 12/02/19 22 1:18 PM CDT documented as of this encounter Care Teams Bit Setter Relationship Specialty Start Date End Date Megan Infante MD [address] [place] [address] PCP - General FAMILY PRACTICE 04/06/16 Zaki Ortiz MD [address] [place] [address] Consulting Physician PULMONARY DISEASE 07/12/19 Concetta Acevedo MD [address] [place] [address] Surgeon NEUROLOGICAL SURGERY 12/16/22 Jeff Grace MD [address] [place] [address] Consulting Physician INTERNAL MEDICINE 02/11/23 Brit Gonzáles MD [address] [place] [address] Consulting Physician CARDIOVASCULAR DISEASE 12/29/23 documented as of this encounter
--- OUTSIDE RECORDS SUMMARY | 2024-09-03 19:07 | XMS_ITS | Encounter Summary ---
Author Organization [facility] Address On license of [facility]6 [facility] [address] [place] [address] Care Team Providers Care Tire Building Supervisor Name Role Phone Megan Infante MD Primary Care Provider [phone] Zaki Ortiz MD Unavailable [phone] Concetta Acevedo MD Unavailable + [phone] Jeff Grace MD Unavailable Brit Gonzáles MD Unavailable Encounter Details Date Type Department Care Team (Latest Contact Info) Description 04/25/2024 Travel Social History Tobacco Use Types Packs/Day Years Used Date Smoking Tobacco: Former Passive Smoke Exposure: Past Smokeless Tobacco: Former Chew Alcohol Use Standard Drinks/Week Comments Yes 0 (1 standard drink = 0.6 oz pur e alcohol) 4 beers per week [facility] Utilities Answer Date Recorded In the past 12 months has [facility] [employer], gas, oil, or water [employer] threatened to shut off services in your [...] How often do you attend amish or yazidi serv ices? Patient declined 02/16/2023 Do you [...] move on to questions 3-9 0 12/01/2021 [facility]at ional [facility] - [...] a fpc (including now)? Patient declined 07/12/2023 Sex and [...] Date Author Status No 07/12/2023 6:58 PM HITCHER Liliana Gutierrez, RN Active documented in this encounter Plan of Treatment Upcoming Encounters Date Type Department Care Team (Late st Contact Info) Description 09/25/2024 2:[address] [facility] [address] [place] [address] Zayra Powell, TEASELER [address] [place] [address] 10/16/2024 3:30 PM HITCHER Office Visit [facility] [address] [facility] [place] [address] Brit Gonzáles MD [address] [place] [address] documented as of this encounter [...] documented as of this encounter Care Teams Tire Building Supervisor Relationship Specialty Start Date End Date Megan Infante MD [address] [place] [address] PCP - General FAMILY PRACTICE 04/06/16 Zaki Ortiz MD [address] [place] [address] Consulting Physician PULMONARY DISEASE 07/12/19 Concetta Acevedo MD [address] [place] [address] Surgeon NEUROLOGICAL SURGERY 12/16/22 eJff Grace MD [address] [place] [address] Consulting Physician INTERNAL MEDICINE 02/11/23 Brit Gonzáles MD [address] [place] [address] Consulting Physician CARDIOVASCULAR DISEASE 12/29/23 documented as of this encounter
--- OUTSIDE RECORDS SUMMARY | 2024-09-03 19:07 | XMS_ITS | Encounter Summary ---
Author Organization [facility] Address [facility] [address] [place] [address] Care Team Providers Care Professor Of Geography Name Role Phone Megan Infante MD Primary Care Provider [phone] Zaki Ortiz MD Unavailable [phone] Concetta Acevedo MD Unavailable + [phone] Jeff Grace MD Unavailable Brit Gonzáles MD Unavailable Encounter Details Date Type Department Care Team (Late st Contact Info) Description 04/25/2024 11:30 AM CDT - 04/25/2024 11:59 PM CDT Hospital Encounter [facility] [address] [place] [address] aMren Mata, [facility] [address] [place] [address] Discharge Disposition: Home or Self Care (Routine Discharge) Social History Tobacco Use Types Packs/Day Years Used Date Smoking Tobacco: Former Passive Smoke Exposure: Past Smokeless Tobacco: Former Chew Alcohol Use Standard Drinks/Week Comments Yes 0 (1 standard drink = 0.6 oz pur e alcohol) 4 beers per week [facility] Utilities Answer Date Recorded In the past 12 months has e electric, gas, oil, or water [employer] threatened to shut off services in your [...] declined 02/16/2023 How often do you attend synagogue or quaker serv ices? Patient declined 02/16/2023 Do you belong to any clubs o r organizations such as synagogue groups, unions, fraternal or athletic groups, or [...] move on to questions 3-9 0 12/01/2021 [employer] [facility] - Occupational Stress Questionnaire Answer [...] place to sleep or slept in a [facility] (including now)? Patient declined 07/12/2023 Sex and [...] Progress Notes * Mary Moore RN - 04/25/2024 11:30 AM CDTEncounter addended by: Mary Moore RN on: 04/25/2024 12:54 PM Actions taken: MAR administration accepted * LALIT Cheney - 04/25/2024 11:30 AM CDTEncounter addended by: LALIT Cheney on: 04/25/2024 12:54 PM Actions taken: Order list changed, Diagnosis association updated * Mary Moore RN - 04/25/2024 11:30 AM CDTEncounter addended by: Mary Moore RN on: 04/25/2024 3:27 PM Actions taken: Multistep and multistep collection tasks completed * LALIT Cheney - 04/25/2024 11:30 AM CDTEncounter addended by: LALIT Cheney on: 04/28/2024 10:45 AM Actions taken: Visit diagnoses modified, Order list changed, Diagnosis association updated documented in this encounter Plan of Treatment Upcoming Encounters Date Type Department Care Team (Late st Contact Info) Description 09/25/2024 2:00 PM STRATEGIC SOURCING MANAGER Appointment [facility] [address] [facility] [address] Maren Mata FNP [address] [place] [address] 10/16/2024 3:30 PM STRATEGIC SOURCING MANAGER Office Visit [facility] [address] [place] [address] Brit Gonzáles MD [address] [place] [address] documented as of this encounter Goals Goal Patient Goal Type Associated Problems Recent Progress Patient-Stated? Author Family - family caregiver with be involved in care transitions and discharge planning Lifestyle Karen Diane RN documented as of this encounter Procedures Procedure Name Priority Date/Time Associated Diagnosis Comments HC BODY FLUID CULTURE Routine 04/25/2024 12:01 PM CDT 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) documented in this encounter Results * ECG 12-Lead (05/02/2024 12:03 PM CDT) 05/02/2024 12:0 3 PM CDT Narrative [facility] - 05/02/2024 8:22 PM CDT ? [facility] ?[address] [place], [place] ??[address] ? Test Date: ?2024-05-02 Pat Name: ? OBIE SIMS ?Department: ?? 3 ? Room: ? Gender: ? Male ? Chlorine Cell Tender: ?? : ?1955 ? Requested By: MAREN MATA Order Number: [id number] ? Reading MD: ?? Karolina Parekh ? Measurements Intervals ?[place] ? Rate: ? 68 ? P: ? HI: ? 0 ?QRS: ?-45 QRSD: ? 149 ?T: ?106 QT: ? 450 ? QTc: ?479 ? Interpretive Statements ATRIAL FIBRILLATION LEFT AXIS DEVIATION ??[QRS AXIS < -30] INTRAVENTRICULAR CONDUCTION DELAY ??[130+ ms QRS DURATION] Procedure Note Karolina Parekh MD - 05/02/[address] [place] [address] Test Date: 2024-05-02 Pat Name: OBIE SIMS Department: 3 Room: Gender: Male Chlorine Cell Tender: : 1955 Requested By: MAREN MATA Order Number: [id number] Sage MD: Martin Measurements Intervals [place] Rate: 68 P: [place]: 0 QRS: -45 QRSD: 149 T: 106 QT: 450 QTc: 479 Interpretive Statements ATRIAL FIBRILLATION LEFT AXIS DEVIATION [QRS AXIS < -30] INTRAVENTRICULAR CONDUCTION DELAY [130+ ms QRS DURATION] Maren Mata TYPEWRITER RIBBON WINDER ECG ORDERABLES Final Result [facility] * CULTURE, WOUND, W/GRAM STAIN (04/25/2024 12:01 PM CDT) SPEC DESCRIPTION LEG,LEFT 04/25/2024 3:28 PM CDT [facility] SPECIAL REQUESTS NO SPECIAL REQUEST 04/25/2024 3:28 PM CDT [facility] GRAM STAIN RESULT NO ORGANISMS SEEN 04/25/2024 4:03 PM CDT [facility] CULTURE RESULT MODERATE ENTEROCOCCUS FAECALIS 04/27/2024 9:55 AM CDT [facility] CULTURE RESULT FEW PSEUDOMONAS AERUGINOSA 04/27/2024 9:55 AM CDT [facility] STRUCTURE OF LEFT LOWER LIMB / Unknown 04/25/2024 12:01 PM CDT 04/25/2024 3:33 PM CDT Narrative Organism Antibiotic Method Susceptibility Enterococcus faecalis AMPICILLIN CHAVA (VITEK) Sensitive Enterococcus faecalis ERYTHROMYCIN CHAVA (VITEK) Resistant Enterococcus faecalis GENT. SYNERGY SCREEN CHAVA (VITEK) Sensitive Enterococcus faecalis LINEZOLID CHAVA (VITEK) Sensitive Enterococcus faecalis PENICILLIN G CHAVA (VITEK) Sensitive Enterococcus faecalis STR. SYNERGY SCR CHAVA (VITEK) Sensitive Enterococcus faecalis TIGECYCLINE CHAVA (VITEK) Sensitive Enterococcus faecalis VANCOMYCIN CHAVA (VITEK) Sensitive Pseudomonas aeruginosa AMIKACIN CHAVA (KB) Sensitive Pseudomonas aeruginosa AZTREONAM CHAVA (KB) Sensitive Pseudomonas aeruginosa CEFEPIME CHAVA (KB) Sensitive Pseudomonas aeruginosa CEFTAZIDIME CHAVA (KB) Sensitive Pseudomonas aeruginosa CIPROFLOXACIN CHAVA (KB) Sensitive Pseudomonas aeruginosa LEVOFLOXACIN CHAVA (KB) Sensitive Pseudomonas aeruginosa MEROPENEM CHAVA (KB) Sensitive Pseudomonas aeruginosa PIPRACIL/TAZO CHAVA (KB) Sensitive Pseudomonas aeruginosa TOBRAMYCIN CHAVA (KB) Sensitive us Maren SPAINP MICROBIOLOGY - GENERAL ORDERAB LES Final Result [facility] [address] [place] [address], [place] [phone] [facility] [address] [place] [address], [place] [phone] documented in this encounter Visit Diagnoses Diagnosis Non-pressure chronic ulcer of left calf limited to breakdown of skin (CMS/[facility] HHS/HCC)- Primary 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 breakdown of skin ([facility] HHS/HCC) Pseudomonas infection Pseudomonas infection in conditions classified elsewhere and of unspecified site Enterococcus faecalis infection Streptococcus infection in conditions classified elsewhere and of unspecified site, group D Adverse effect of antibiotic Unspecified antibiotic causing adverse effect in therapeutic use Adverse effect of antibiotic Unspecified antibiotic causing adverse effect in therapeutic use documented in this encounter Administered Medications Inactive Administered Medications - up to 3 most recent administrations Medication Order MAR Action Action Date Dose Rate Site lidocaine 2 % URO-JET jelly Topical, Once, 1 dose, On Wed04/25/24 at 1315Indications:Non-pressure chronic ulcer of left calf limited to breakdown of skin ([facility] HHS/HCC),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 breakdown of skin ([facility] HHS/HCC) Given 04/25/2024 11:30 AM CDT documented in this encounter Additional Health Concerns Assessment Noted Time PHQ-9 Depression Total Score: 0 12/02/19 22 1:18 PM CDT documented as of this encounter Care Teams Professor Of Geography Relationship Specialty Start Date End Date Megan Infante MD [address] [place] [id number] PCP - General FAMILY PRACTICE 04/06/16 Zaki Ortiz MD [address] [place] [phone] Consulting Physician PULMONARY DISEASE 07/12/19 Concetta Acevedo MD [address] [place] [address] [id number] Surgeon NEUROLOGICAL SURGERY 12/16/22 Jeff Grace MD [address] [place] [address] Consulting Physician INTERNAL MEDICINE 02/11/23 Brit Gonzáles MD [address] [place] [address] [place] [address] Consulting Physician CARDIOVASCULAR DISEASE 12/29/23 documented as of this encounter
--- OUTSIDE RECORDS SUMMARY | 2024-09-03 19:07 | XMS_ITS | Encounter Summary ---
Author Organization [facility] Address [facility] [place] [address] [place] [address] Care Team Providers Care Showroom Sales Consultant Name Role Phone Megan Infante MD Primary Care Provider [phone] Zaki Ortiz MD Unavailable [phone] Concetta Acevedo MD Unavailable + [phone] Jeff Grace MD Unavailable Brit Gonzáles MD Unavailable Encounter Details Date Type Department Care Team (Late st Contact Info) Description 05/02/2024 11:54 AM CDT - 05/02/2024 12:14 PM T Hospital Encounter [facility] [address] [phone] Maren Mata, CHILD DEVELOPMENT ASSISTANT [address] [place] [address] Discharge Disposition: Home or Self Care (Routine Discharge) Social History Tobacco Use Types Packs/Day Years Used Date Smoking Tobacco: Former Passive Smoke Exposure: Past Smokeless Tobacco: Former Chew Alcohol Use Standard Drinks/Week Comments Yes 0 (1 standard drink = 0.6 oz pur e alcohol) 4 beers per week [facility] Utilities Answer Date Recorded In the [...] declined 02/16/2023 How often do you attend mandaen or amish serv ices? Patient declined 02/16/2023 Do you belong to any clubs o r organizations such as mandaen groups, unions, fraternal or athletic groups, or [...] move on to questions 3-9 0 12/01/2021 [facility] - Occupational Stress Questionnaire Answer Date [...] place to sleep or slept in a [place] [facility] [place] (including now)? Patient declined 07/12/2023 Sex and [...] st Contact Info) Description 09/25/2024 2:00 PM BODY CORPORATE MANAGER Appointment [facility] [address] [place] [address] Maren Mata, [facility] [address] [place] [address] 10/16/2024 3:30 PM BODY CORPORATE MANAGER Office Visit [facility] [address] [place] [phone] Brit Gonzáles MD [address] [place] [address] documented as of this encounter Goals Goal Patient Goal Type Associated Problems Recent Progress Patient-Stated? Author Family - family caregiver with be involved in care transitions and discharge planning Lifestyle No Karen Quezada RN documented as of this encounter Procedures Procedure Name Priority Date/Time Associated Diagnosis Comments ECG 12-LEAD Routine 05/02/2024 12:03 PM CDT Adverse effect of antibiotic documented in this encounter Results * ECG 12-Lead (05/02/2024 12:03 PM CDT) 05/02/2024 12:0 3 PM CDT Narrative [facility] - 05/02/2024 8:22 PM CDT ? [facility] ?[address] [facility] [address] [place], [place] ??[address] ? Test Date: ?2024-05-02 Pat Name: ? OBIE SIMS ?Department: ?? 3 ? Room: ? Gender: ? Male ? Air Compressor Operator: ?? : ?1955 ? Requested By: MAREN MATA Order Number: [id number] ? Reading : ?? Karolina Parekh ? Measurements Intervals ?[place] ? Rate: ? 68 ? P: ? [place]: ? 0 ?QRS: ?-45 QRSD: ? 149 ?T: ?106 QT: ? 450 ? QTc: ?479 ? Interpretive Statements ATRIAL FIBRILLATION LEFT AXIS DEVIATION ??[QRS AXIS < -30] INTRAVENTRICULAR CONDUCTION DELAY ??[130+ ms QRS DURATION] Procedure Note Karolina Parekh MD - 05/02/[address] [place] [address] Test Date: 2024-05-02 Pat Name: OBIE SIMS Department: 3 Room: Gender: Male Air Compressor Operator: : 1955 Requested By: MAREN Burnham Number: [id number] Reading MD: Martin Measurements Intervals [place] Rate: 68 P: [place]: 0 QRS: -45 QRSD: 149 T: 106 QT: 450 QTc: 479 Interpretive Statements ATRIAL FIBRILLATION LEFT AXIS DEVIATION [QRS AXIS < -30] INTRAVENTRICULAR CONDUCTION DELAY [130+ ms QRS DURATION] us Maren Mata CHILD DEVELOPMENT ASSISTANT ECG ORDERABLES Final Result [facility] documented in this encounter Visit Diagnoses Diagnosis Adverse effect of antibiotic Unspecified antibiotic causing adverse effect in therapeutic use documented in this encounter Additional Health Concerns Assessment Noted Time PHQ-9 Depression Total Score: 0 12/02/19 22 1:18 PM CDT documented as of this encounter Care Teams Showroom Sales Consultant Relationship Specialty Start Date End Date Megan Infante MD [address] [place] [phone] PCP - General FAMILY PRACTICE 04/06/16 Zaki Ortiz MD [address] [facility] [place] [phone] Consulting Physician PULMONARY DISEASE 07/12/19 Romeo-Concetta Pond MD [address] [place] [address] Surgeon NEUROLOGICAL SURGERY 12/16/22 Jeff Grace MD [address] [place] [address] Consulting Physician INTERNAL MEDICINE 02/11/23 Brit Gonzáles MD [address] [place] [address] Consulting Physician CARDIOVASCULAR DISEASE 12/29/23 documented as of this encounter
--- OUTSIDE RECORDS SUMMARY | 2024-09-03 19:07 | XMS_ITS | Encounter Summary ---
Author Organization [facility] Address [facility] [address] [place] [address] Care Team Providers Care Ceramic Saw Tender Name Role Phone Megan Infante MD Primary Care Provider [phone] Sharmila Davis APRN, NP-C Unavailable [phone] Zaki Ortiz MD Unavailable [phone] Concetta Acevedo MD Unavailable + [phone] Jeff Grace MD Unavailable Brit Gonzáles MD Unavailable Reason for Visit * Reason Comments Heart Problem Encounter Details Date Type Department Care Team (Late st Contact Info) Description 04/03/2024 12:30 PM CDT Office Visit [facility] [place] [address] Brit Gonzáles MD [address] [place] [address] Heart Problem Social History Tobacco Use Types Packs/Day Years Used Date Smoking Tobacco: Former Smokeless Tobacco: Former Chew Alcohol Use Standard Drinks/Week Comments Yes 0 (1 standard drink = 0.6 oz pur e alcohol) 4 beers per week [facility] Utilities Answer Date Recorded In the past 12 months has e electric, gas, oil, or water company [...] declined 02/16/2023 How often do you attend druze or anglican serv ices? Patient declined 02/16/2023 Do you belong to any clubs o r organizations such as druze groups, unions, fraternal or athletic groups, or [...] move on to questions 3-9 0 12/01/2021 [facility] [place] [facility] Occup[facility] ional Health - Occupational Stress [...] a [facility] (including now)? Patient declined 07/12/2023 Sex and [...] Sign Reading Time Taken Comments Blood Pressure 118/75 04/03/2024 2:38 PM CDT Pulse 72 04/03/2024 2:38 PM CDT Temperature - - Respiratory Rate 16 04/03/2024 2:38 PM CDT Oxygen Saturation 98% 04/03/2024 2:38 PM CDT Inhaled Oxygen Concentration - - Weight 97.5 kg (215 lb) 04/03/2024 2:38 PM CDT Height 167.6 cm (5' 6 ) 04/03/2024 2:38 PM CDT Body Mass Index 34.7 04/03/2024 2:38 PM CDT documented in this encounter Functional Status * [...] Author Status No 07/12/2023 6:58 PM Liliana Lyane RN Active documented in this encounter Patient Instructions * Patient Instructions* Erin Villatoro RN - 04/03/2024 12:30 PM CDT Plan: Patient may proceed with upcoming cataract surgery with Dr. Cirilo Pal If warfarin needs to be held with then patient will require Lovenox bridge Continue current meds Low-salt diet Return monitor blood pressure and heart rates at home Return to clinic in 6 months documented in this encounter Progress Notes * Brit Gonzáles MD - 04/03/2024 12:30 PM CDT Reason for Visit: No chief complaint on file. History of Present Illness: Patient is here for cardiac test results. 68M COMPLEX PMX CAD, paroxysmal A-fib status post PVI 11/05, severe s/p mechanical AVR 1999 withbioprosthetic AVR 2013, I-TERRA C[place] MASON, HHD, HLD, DM, COPD, CVI CEAP 5, former smoker Patient states he has upcoming cataract surgery with Dr. Pal. He states in the past when his warfarin was discontinued 5 days he had a CVA in the interim. Given this history I recommend bridging forall procedures that require interruption of his oral anticoagulation therapy. Patient is otherwise doing well he denies any chest pain, he continues to voice chronic shortness of breath with activity. He is in the office using a cane and in a wheelchair. He is unable to ambulate more than 25 to 50 feet before symptom onset. He denies any falls he denies any palpitations. Patient has history of paroxysmal atrial fibrillation. He reports med compliance with no side effects. In office hemodynamics are stable Recommendations and Plan: Investigations: 03/15 TTE: EF 40 to 45%, mild RVE, severe PAH (RVSP 75), bioprosthetic aortic valve with mean gradient 18 no regurg, mild MR/TR 03/15 MPI: Probably normal perfusion with no evidence of ischemia, EF 53%. 08/14 labs: CR 1.71 01/12 TTE: EF 37%, RV enlarged with moderately depressed function, bioprosthetic aortic valve with mean gradient 16 no AI, trace MR 02/11 MPI: No ischemia, fixed defect in the inferior and inferolateral wall, EF 51% 12/12 CUS: 0 to 39% stenosis bilaterally 09/12 LHC: Right dominant 60% proximal LAD mild ramus intermedius plaque mild left circumflex plaque, large OM1, 50% ostial RCA stenosis. Assessment: #Upcoming cataract surgery: Okay to proceed for low risk procedure no further cardiac testing is required at present time # Complex CAD: denies CP, c/t medical therapy, will c/t to monitor # I-TERRA [place]ON: stable, will c/t to monitor # severe s/p mechanical AVR 1999 with bioprosthetic AVR 2013: stable hemodynamics perTTE, will continue monitor with periodic echoes #MR: Stable, will continue to monitor #paroxysmal A-fib status post PVI 11/05: Continue oral anticoagulation therapy # carotid stenosis: Asymptomatic continue medical therapy, will continue to monitor #HHD: Blood pressure goal, continue medical therapy #HLD: Stable on current medical therapy, will continue to monitor #DM #COPD #CVI CEAP 5: Defer management to wound clinic/vascular #Former smoker Plan: Patient may proceed with upcoming cataract surgery with Dr. Cirilo Pal If warfarin needs to be held with then patient will require Lovenox bridge Continue current meds Low-salt diet Return monitor blood pressure and heart rates at home Return to clinic in 6 months CC PCP CC Dr. Pal Medications: Current Outpatient Medications: albuterol sulfate HFA 108 (90 Base) MCG/ACT inhaler, Inhale 2 puffs into the lungs every 4 (four) hours as needed., Disp: , Rfl: allopurinol 300 MG tablet, Take 1 tablet (300 mg total) by mouth daily., Disp: , Rfl: aspirin 81 MG chewable tablet, Chew 1 tablet (81 mg total) by mouth daily., Disp: , Rfl: atorvastatin 80 MG tablet, Take 1 tablet (80 mg total) by mouth nightly at bedtime., Disp: , Rfl: carvedilol (COREG) 3.125 MG tablet, Take 1 tablet (3.125 mg total) by mouth 2 (two) times daily., Disp: , Rfl: CIRCAID COMPRESSION WRAP, DME,, 1 Package by Does not apply route daily. One garment each leg, Disp: 2 Package, Rfl: 0 cyclobenzaprine (FLEXERIL) 10 MG tablet, Take 1 tablet (10 mg total) by mouth 3 (three) times dailyas needed for Muscle Spasms., Disp: , Rfl: docusate sodium 100 MG capsule, Take 1 capsule (100 mg total) by mouth as needed for Constipation.,Disp: , Rfl: ferrous sulfate, 65 mg elemental, 325 (65 FE) MG tablet, Take 1 tablet (325 mg total) by mouth daily with breakfast., Disp: , Rfl: folic acid (FOLVITE) 1 MG tablet, Take 1 tablet (1 mg total) by mouth daily., Disp: , Rfl: furosemide (LASIX) 80 MG tablet, Take 1 tablet (80 mg total) by mouth daily., Disp: 30 tablet, Rfl:0 gabapentin (NEURONTIN) 400 MG capsule, Take 1 capsule (400 mg total) by mouth 2 (two) times daily.,Disp: 90 capsule, Rfl: 0 glipiZIDE XL (GLUCOTROL XL) 5 MG 24 hr tablet, Take 1 tablet (5 mg total) by mouth daily with breakfast., Disp: 30 tablet, Rfl: 0 HYDROcodone-acetaminophen (NORCO) 10-325 MG tablet, Take 1 tablet by mouth every 6 (six) hours as needed. Indications: Acute Pain < 7 Day Supply, Disp: 15 tablet, Rfl: 0 hydrOXYzine (ATARAX) 50 MG tablet, Take 2 tablets (100 mg total) by mouth 3 (three) times daily. Asneeded, Disp: , Rfl: insulin detemir (LEVEMIR FLEXPEN) 100 UNIT/ML PEN, Inject 15 Units into the skin nightly at bedtime., Disp: 9 mL, Rfl: 0 JARDIANCE 25 MG tablet, Take 1 tablet (25 mg total) by mouth daily., Disp: , Rfl: metFORMIN (GLUCOPHAGE) 500 MG tablet, Take 1 tablet (500 mg total) by mouth 2 (two) times daily with meals., Disp: , Rfl: pantoprazole EC 40 MG tablet, Take 1 tablet (40 mg total) by mouth daily., Disp: , Rfl: potassium chloride CR (KLOR-CON M) 20 MEQ tablet, Take 1 tablet (20 mEq total) by mouth 2 (two) times daily., Disp: , Rfl: rOPINIRole (REQUIP) 4 MG tablet, Take 1 tablet (4 mg total) by mouth nightly at bedtime., Disp: , Rfl: sacubitril-valsartan (ENTRESTO) 24-26 MG tablet, Take 1 tablet by mouth 2 (two) times daily., Disp:60 tablet, Rfl: 11 sertraline 50 MG tablet, Take 1 tablet (50 mg total) by mouth daily., Disp: , Rfl: spironolactone (ALDACTONE) 25 MG tablet, Take 1 tablet (25 mg total) by mouth daily., Disp: 30 tablet, Rfl: 0 tiZANidine (ZANAFLEX) 4 MG tablet, Take 1 tablet (4 mg total) by mouth 3 (three) times daily as needed., Disp: , Rfl: traZODone (DESYREL) 150 MG tablet, Take 2 tablets (300 mg total) by mouth nightly at bedtime., Disp: , Rfl: TRELEGY ELLIPTA 100-62.5-25 MCG/ACT AEROSOL POWDER, BREATH ACTIVATED, Inhale 1 puff into the lungs daily., Disp: , Rfl: triamcinolone (KENALOG) 0.1 % cream, Apply topically 2 (two) times daily., Disp: 15 g, Rfl: 0 warfarin (COUMADIN) 1 MG tablet, Take 1 tablet (1 mg total) by mouth daily. Take with 5mg tab to make it 6 mg daily. Repeat INR in 3-4 days to adjust the dose of warfarin as per PCP, Disp: 30 tablet,Rfl: 0 warfarin (COUMADIN) 5 MG tablet, Take 1 tablet (5 mg total) by mouth daily. Take with 1 mg tab to make it 6 mg daily. Repeat INR in 3-4 days to adjust the dose of warfarin as per PCP, Disp: 30 tablet, Rfl: 0 Review of patient's allergies indicates: No Known Allergies Past Medical History: Diagnosis Date Abnormal ankle brachial index (STELLA) Acute on chronic heart failure, unspecified heart failure type ([facility]) Anxiety Aortic valve stenosis Arthritis Asthma, mild persistent ([facility]) 04/06/2021 Atrial fibrillation ([facility]) s/p PVI/[facility] 10/2015 Bilateral leg pain Carotid disease, bilateral ([facility]) CHF (congestive heart failure) ([facility]) Claudication ([facility]) COPD (chronic obstructive pulmonary disease) ([facility]) Coronary artery disease Diabetes mellitus, type II ([facility]) Edema 04/19/2018 2+ pitting History of blood transfusion Hyperlipidemia Hypertension LV dysfunction Non-pressure chronic ulcer of left calf limited to breakdown of skin ([facility]) 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 breakdown of skin ([facility]) Osteoarthritis PAD (peripheral artery disease) ([facility]) Pneumonia Restless leg syndrome S/P aortic valve replacement with bioprosthetic valve 2013 SOB (shortness of breath) Stroke ([facility]) Varicose veins of bilateral lower extremities with other complications Weight gain with edema Past Surgical History: Procedure Laterality Date APPENDECTOMY CARDIAC VALVE REPLACEMENT 1999 CARDIAC VALVE REPLACEMENT 2013 CARDIOVERSION EXTERNAL 10/01/2015 CARDIOVERSION EXTERNAL 04/14/2012 COLONOSCOPY N/A 03/18/2021 COLONOSCOPY (Incomplete) performed by Kilo Navarro MD at [facility] OR COLONOSCOPY N/A 01/27/2022 COLONOSCOPY WITH COLD SNARE POLYPECTOMY performed by Kilo Navarro MD at [facility] OR HIP ARTHROPLASTY Left KNEE ARTHROPLASTY Bilateral REPAIR ROTATOR CUFF W/ OR W/O ACROMIOPLASTY Left USE NEMO+CARDIOVERSION 03/24/2016 XA A-FIB ABLATION 10/23/2015 PVI/[facility] Social History Tobacco Use Smoking status: Former Smokeless tobacco: Former Types: Chew Vaping Use Vaping status: Never Used Substance Use Topics Alcohol use: Yes Comment: 4 beers per week Drug use: No Family History Problem Relation Name Age of Onset TB Mother Family Status Relation Name Status Mother Father Sister Alive Brother Alive MGM MGF PGM PGF No partnership data on file Review of Systems Constitutional: Negative for recent unintentional weight gain, recent unintentional weight loss andnew or significant fatigue. HENT: Negative for new or significant hearing loss. Eyes: Negative for blurred vision and double vision. Respiratory: Negative for cough, new or significant shortness of breath and snoring. Cardiovascular: See HPI. Gastrointestinal: Negative for blood in stool and melena. Genitourinary: Negative for dysuria. Musculoskeletal: Negative for myalgias and new or worsening joint stiffness/pain. Skin: Negative for rash. Neurological: Negative for tingling/numbness and focal weakness. Endo/Heme/Allergies: Negative for new or significant bruising/bleeding and polydipsia. Psychiatric/Behavioral: Negative for depression and new or significant memory loss. There were no vitals filed for this visit. There is no height or weight on file to calculate BMI. Cardiac Exam Rate/Rhythm: Normal rate and regular rhythm. PMI: PMI is not displaced. Pulses: Carotid pulses are 2+ on the right side and 2+ on the left side. Radial pulses are 2+ on the right side and 2+ on the left side. Dorsalis pedis pulses are 2+ on the right side and 2+ on the left side. Heart Sounds: Normal heart sounds. Normal S1 sounds. Normal S2 sounds. No gallop present. No S3. NoS4. Murmurs: Physical Exam Constitutional: No distress. Healthy Appearance. HENT: Oropharynx clear. Eyes: Pupils equal, round, and reactive to light. Conjunctivae normal. Neck: Neck supple. No JVD. Abdomen: Abdomen soft. Bowel sounds normal. No tenderness. No mass. No hepatomegaly. No splenomegaly. Abdominal aorta not palpably enlarged. No abdominal bruit present. Pulmonary: Effort normal. Breath sounds normal. Skin: No rash. No cyanosis. No clubbing. No xanthoma. Musculoskeletal: No kyphosis. Normal ROM. Neurological: Alert. Oriented x 3. Appropriate mood and affect. Normal motor skills. Normal gait. Comments: Diagnoses/Impression: No diagnosis found. Referring Provider: No ref. provider found PCP: MEGAN INFANTE MD documented in this encounter Plan of Treatment Upcoming Encounters Date Type Department Care Team (Late st Contact Info) Description 09/25/2024 2:00 PM ESCAPE WHEEL TOOTH CUTTER Appointment [facility] [address] [place] [address] Zayra Powell, [facility] [address] [place] [address] 10/16/2024 3:30 PM ESCAPE WHEEL TOOTH CUTTER Office Visit [facility] [address] [place] [address] Brit Gonzáles MD [address] [place], [place] [address] documented as of this encounter Goals Goal Patient Goal Type Associated Problems Recent Progress Patient-Stated? Author Family - family caregiver with be involved in care transitions and discharge planning Lifestyle No Karen Quezada, YUNI documented as of this encounter Visit Diagnoses Diagnosis Coronary artery disease involving tatitlek coronary artery of tatitlek heart without angina pectoris- Primary Chronic combined systolic and diastolic congestive heart failure ([facility]) Chronic combined systolic and diastolic heart failure Chronic atrial fibrillation ([facility]) Atrial fibrillation S/P aortic valve replacement with bioprosthetic valve Heart valve replaced by other means documented in this encounter Additional Health Concerns Assessment Noted Time PHQ-9 Depression Total Score: 0 12/02/19 22 1:18 PM CDT documented as of this encounter Care Teams Ceramic Saw Tender Relationship Specialty Start Date End Date Megan Infante MD [address] [place] [address] PCP - General FAMILY PRACTICE 04/06/16 Sharmila Davis, BELT LACER, MANAGER COMPLIANCE-C [address] [phone] NURSE PRACTITIONER 01/04/17 04/03/24 Zaki Ortiz MD [address] [address] Consulting Physician PULMONARY DISEASE 07/12/19 Concetta Acevedo MD [address] [place] [address] Surgeon NEUROLOGICAL SURGERY 12/16/22 Jeff Grace MD [address] [place] [id number] Consulting Physician INTERNAL MEDICINE 02/11/23 Brit Gonzáles MD [address] [place], [place] [phone] Consulting Physician CARDIOVASCULAR DISEASE 12/29/23 documented as of this encounter
--- OUTSIDE RECORDS SUMMARY | 2024-09-03 19:07 | XMS_ITS | Encounter Summary ---
Author Organization [facility] Address [facility] [place] [address] [place] [address] Care Team Providers Care Stabilizer Operator Name Role Phone Megan Infante MD Primary Care Provider [phone] Zaki Ortiz MD Unavailable [phone] Concetta Acevedo MD Unavailable + [phone] Jeff Grace MD Unavailable Brit Gonzáles MD Unavailable Encounter Details Date Type Department Care Team (Latest Contact Info) Description 05/16/2024 Travel Social History Tobacco Use Types Packs/Day Years Used Date Smoking Tobacco: Former Passive Smoke Exposure: Past Smokeless Tobacco: Former Chew Alcohol Use Standard Drinks/Week Comments Yes 0 (1 standard drink = 0.6 oz pur e alcohol) 4 beers per week [facility] Utilities Answer Date Recorded In the past 12 months has [facility] hospital [employer], gas, oil, or water [employer] threatened to shut off services in your [...] on to questions 3-9 0 12/01/2021 [facility] Occupat ional Health - Occupational [...] place to sleep or slept in a skilled nursing (including now)? Patient declined 07/12/2023 Sex and [...] Date Author Status No 07/12/2023 6:58 PM BOOKKEEPING MACHINE OPERATOR Liliana Gutierrez, RN Active documented in this encounter Plan of Treatment Upcoming Encounters Date Type Department Care Team (Late st Contact Info) Description 09/25/2024 2:00 PM BOOKKEEPING MACHINE OPERATOR Appointment [facility] [address] [place] [address] Zayra Powell, DYER ASSISTANT [address] [facility] [place] [address] 10/16/2024 3:30 PM BOOKKEEPING MACHINE OPERATOR Office Visit [facility] [address] [place] [address] Brit Gonzáles MD [address] [place] [address] documented as of this encounter [...] documented as of this encounter Care Teams Stabilizer Operator Relationship Specialty Start Date End Date Megan Infante MD [address] [place] [address] PCP - General FAMILY PRACTICE 04/06/16 Zaki Ortiz MD [address] [place] [address] Consulting Physician PULMONARY DISEASE 07/12/19 Concetta Acevedo MD [address] [place] [address] Surgeon NEUROLOGICAL SURGERY 12/16/22 Jeff Grace MD [address] [place] [address] Consulting Physician INTERNAL MEDICINE 02/11/23 Brit Gonzáles MD [address] [place] [address] Consulting Physician CARDIOVASCULAR DISEASE 12/29/23 documented as of this encounter
--- OUTSIDE RECORDS SUMMARY | 2024-09-03 19:07 | XMS_ITS | Encounter Summary ---
Author Organization [facility] Address [facility] [place] [address] [place] [address] Care Team Providers Care Car Changer Name Role Phone Megan Infante MD Primary Care Provider [phone] Zaki Ortiz MD Unavailable [phone] Concetta Acevedo MD Unavailable + [phone] Jeff Grace MD Unavailable Brit Gonzáles MD Unavailable Encounter Details Date Type Department Care Team (Late st Contact Info) Description 05/02/2024 12:15 PM CDT - 05/02/2024 1:05 PM CDT Hospital Encounter [facility] [address] [place] [address] Zayra Powell, [facility] [address] [place] [address] Discharge Disposition: Home or Self Care (Routine Discharge) Social History Tobacco Use Types Packs/Day Years Used Date Smoking Tobacco: Former Passive Smoke Exposure: Past Smokeless Tobacco: Former Chew Alcohol Use Standard Drinks/Week Comments Yes 0 (1 standard drink = 0.6 oz pur e alcohol) 4 beers per week [facility] Utilities Answer Date Recorded In the past 12 months has e electric, gas, oil, or water [employer] threatened to shut off services in your [...] declined 02/16/2023 How often do you attend pentecostalism or anabaptist serv ices? Patient declined 02/16/2023 Do you belong to any clubs o r organizations such as pentecostalism groups, unions, fraternal or athletic groups, or [...] on to questions 3-9 0 12/01/2021 [facility]ational [facility] Questionnaire [...] place to sleep or slept in a longterm (including now)? Patient declined 07/12/2023 Sex and [...] Progress Notes * Mary Moore RN - 05/02/2024 1:00 PM CDTEncounter addended by: Mary Moore RN on: 05/02/2024 2:25 PM Actions taken: MAR administration accepted documented in this encounter Plan of Treatment Upcoming Encounters Date Type Department Care Team (Late st Contact Info) Description 09/25/2024 2:00 PM LEAD BLENDER Appointment [facility] [address] [place] [address] Andre Zayra K, [facility] [address] [place], [place] [id number] 10/16/2024 3:30 PM LEAD BLENDER Office Visit [facility] [address] [place] [phone] Brit Gonzáles MD [address] [place] [address] documented as of this encounter [...] URO-JET jelly Topical, Once, 1 dose, On Wed05/02/24 at 1400Indications: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),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) Given 05/02/2024 1:00 PM CDT documented in this encounter Additional Health Concerns Assessment Noted Time PHQ-9 Depression Total Score: 0 12/02/19 22 1:18 PM CDT documented as of this encounter Care Teams Car Changer Relationship Specialty Start Date End Date Megan Infante MD [address] [place] [address] PCP - General FAMILY PRACTICE 04/06/16 Zaki Ortiz MD [address] [place] [address] Consulting Physician PULMONARY DISEASE 07/12/19 Concetta Acevedo MD [address] [place] [address] Surgeon NEUROLOGICAL SURGERY 12/16/22 Jeff Grace MD [address] [place] [address] Consulting Physician INTERNAL MEDICINE 02/11/23 Brit Gonzáles MD [address] [place] [address] Consulting Physician CARDIOVASCULAR DISEASE 12/29/23 documented as of this encounter
--- OUTSIDE RECORDS SUMMARY | 2024-09-03 19:07 | XMS_ITS | Encounter Summary ---
Author Organization [facility] Address [facility] [place] [address] [place] [address] Care Team Providers Care Blasting Cap Assembler Name Role Phone Megan Infante MD Primary Care Provider [phone] Zaki Ortiz MD Unavailable [phone] Concetta Acevedo MD Unavailable + [phone] Jeff Grace MD Unavailable Brit Gonzáles MD Unavailable Encounter Details Date Type Department Care Team (Late st Contact Info) Description 04/20/2024 12:52 PM CDT - 04/20/2024 11:59 PM CDT Hospital Encounter [facility] [address] [place] [address] aZyra Powell, [facility] [address] [place] [address] Discharge Disposition: Home or Self Care (Routine Discharge) Social History Tobacco Use Types Packs/Day Years Used Date Smoking Tobacco: Former Passive Smoke Exposure: Past Smokeless Tobacco: Former Chew Alcohol Use Standard Drinks/Week Comments Yes 0 (1 standard drink = 0.6 oz pur e alcohol) 4 beers per week [facility] Utilities Answer Date Recorded In the past 12 months has e electric, gas, oil, or water [employer] threatened to shut off services in your [...] declined 02/16/2023 How often do you attend hoahaoism or shinto serv ices? Patient declined 02/16/2023 Do you belong to any clubs o r organizations such as hoahaoism groups, unions, fraternal or athletic groups, or [...] move on to questions 3-9 0 12/01/2021 [facility] - Occupational Stress Questionnaire [...] st Contact Info) Description 09/25/2024 2:00 PM SKI LIFT ATTENDANT Appointment [facility] [address] [place] [address] Zayra Powell, DRILLING FIELD OPERATOR [address] [place] [address] 10/16/2024 3:30 PM SKI LIFT ATTENDANT Office Visit [facility] [address] [place] [address] Brit Gonzáles MD [address] [place] [address] documented as of this encounter Goals Goal [...] documented as of this encounter Care Teams Blasting Cap Assembler Relationship Specialty Start Date End Date Megan Infante MD [address] [place] [address] PCP - General FAMILY PRACTICE 04/06/16 Zaki Ortiz MD [address] [place] [address] Consulting Physician PULMONARY DISEASE 07/12/19 Concetta Acevedo MD [address] [place] [address] Surgeon NEUROLOGICAL SURGERY 12/16/22 Jeff Grace MD [address] [place] [address] Consulting Physician INTERNAL MEDICINE 02/11/23 Brit Gonzáles MD [address] [place] [address] Consulting Physician CARDIOVASCULAR DISEASE 12/29/23 documented as of this encounter
--- OUTSIDE RECORDS SUMMARY | 2024-09-03 19:07 | XMS_ITS | Encounter Summary ---
Author Organization [facility] Address [facility] [place] [address] [place] [address] Care Team Providers Care Warehouse Logistics Coordinator Name Role Phone Megan Infante MD Primary Care Provider [phone] Zaki Ortiz MD Unavailable [phone] Romeo-Concetta Pond MD Unavailable + [phone] Jeff Grace MD Unavailable Brit Gonzáles MD Unavailable Reason for Referral * Imaging (Urgent) - New Request Specialty Diagnoses / Procedures Referred By Yung t Referred To Contact RADIOLOGY Diagnoses Claudication (CMS/HCC) Procedures USV ART DUPLEX LOW ELZA Zayra Powell FNP [address] [place] [address] Phone: tel: fax: Referral ID Status Reason Start Date Expiration Date V isits Requested Visits Authorized [id number] New Request 04/06/2024 04/06/2025 1 1 Encounter Details Date Type Department Care Team (Late st Contact Info) Description 04/06/2024 12:59 PM CDT - 04/06/2024 11:59 PM CDT Hospital Encounter [facility] [address] [place] [address] Zayra Powell FNP [address] [place] [address] Discharge Disposition: Home or Self Care (Routine Discharge) Social History Tobacco Use Types Packs/Day Years Used Date Smoking Tobacco: Former Smokeless Tobacco: Former Chew Alcohol Use Standard Drinks/Week Comments Yes 0 (1 standard drink = 0.6 oz pur e alcohol) 4 beers per week [facility] Utilities Answer Date Recorded In the past 12 months has e [employer], gas, oil, or water [employer] threatened to shut off services in your [...] declined 02/16/2023 How often do you attend uatsdin or mormon serv ices? Patient declined 02/16/2023 Do you belong to any clubs o r organizations such as uatsdin groups, unions, fraternal or athletic groups, or [...] move on to questions 3-9 0 12/01/2021 [facility] - Occupational Stress [...] Progress Notes * Mary Moore RN - 04/06/2024 1:00 PM CDTEncounter addended by: Mary Moore RN on: 04/06/2024 2:57 PM Actions taken: MAR administration accepted * LALIT Cheney - 04/06/2024 1:00 PM CDT Patient has an appointment with you in [facility] today. Lower extremity pain when elevated, relief when in dependent position. Suspect claudication. documented in this encounter Plan of Treatment Upcoming Encounters Date Type Department Care Team (Late st Contact Info) Description 09/25/2024 2:00 PM SALON SUPERVISOR Appointment [facility] [address] [place] [address] Zayra Powell FNP [address] [place] [address] 10/16/2024 3:30 PM SALON SUPERVISOR Office Visit [facility] [address] [place] [phone] Brit Gonzáles MD [address] [place] [address] documented as of this encounter Goals Goal Patient Goal Type Associated Problems Recent Progress Patient-Stated? Author Family - family caregiver with be involved in care transitions and discharge planning Lifestyle Karen Diane RN documented as of this encounter Procedures Procedure Name Priority Date/Time Associated Diagnosis Comments USV ART DUPLEX LOW ELZA Today 04/11/2024 1:59 PM CDT Claudication (CMS/HCC) documented in this encounter Results * USV ART DUPLEX LOW ELZA (04/11/2024 1:59 PM CDT) Anatomical Region Laterality Modality Extremity Ultrasound 04/11/2024 12:5 7 PM CDT Narrative 04/13/2024 12:44 PM CDT ?Outreach Arterial Duplex Bilateral ?Vascular Report Pat.Name: ??AlirezaMendez esha ?Pat.ID: ?[id number] ? St.Date: ?? 04/11/2024 ? Refer.MD: ??Outreach, [facility] Exam Time: 12:57:00 PM ? Study Type:OUTREACH ART DUPLEX SCAN BILATERAL LEG Height: ?66 in ?Age: ??1955,68Y ? Sex: ? M ? Sonogrphr: Roland Oh RDCS ? Pat. Stat.:Inpatient ? Reason for Study:Bilateral leg pain, Bilateral lower leg wounds, Claudication Procedures: Study performed at [place], [place] and interpreted by [facility]. ++++++++++++++++++++++++++++++++++++ SUMMARY: ++++++++++++++++++++++++++++++++++++ Rt Lower Ext: 0-19% stenosis noted in all segments of the right lower extremity, though WHITEWATER RAFTING GUIDE waveform could be suggestive of inflow disease. Lt Lower Ext: 0-19% stenosis noted in all segments of the left lower extremity, though WHITEWATER RAFTING GUIDE waveform could be suggestive of inflow disease. ++++++++++++++++++++++++++++++++++++ FINDINGS: ++++++++++++++++++++++++++++++++++++ Rt Lower Ext: 0-19% stenosis noted in all segments of the right lower ?extremity. Lt Lower Ext: 0-19% stenosis noted in all segments of the left lower ?extremity. ++++++++++++++++++++++++++++++++++++ MEASUREMENTS: ++++++++++++++++++++++++++++++++++++ ?DOPPLER Left WHITEWATER RAFTING GUIDE ?? WHITEWATER RAFTING GUIDE EDV ? 21 cm/s ?WHITEWATER RAFTING GUIDE PSV ?116 cm/s Left Prox Pop A ?? Prox Pop A EDV ? 0 cm/s ?Prox Pop A PSV ?83 cm/s Left Dist Pop A ?? Dist Pop A PSV ?88 cm/s ?Dist Pop A EDV ?19 cm/s Left Prox HAT BRAIDER ?? Prox HAT BRAIDER PSV ?59 cm/s ?Prox HAT BRAIDER EDV ? 0 cm/s Left Mid HAT BRAIDER ?? Mid HAT BRAIDER PSV ? 27 cm/s ?Mid HAT BRAIDER EDV ?9 cm/s Left Dist HAT BRAIDER ?? Dist HAT BRAIDER PSV ? 120 cm/s ?Dist HAT BRAIDER EDV ? 8 cm/s Left Prox Rahul A ?? Prox Rahul A EDV ? 0 cm/s ? Prox Rahul A PSV ?52 cm/s Left Mid Rahul A ?? Mid Rahul A EDV ? 7 cm/s ?Mid Rahul A PSV ?32 cm/s Left Dist Rahul A ?? Dist Rahul A EDV ? 0 cm/s ? Dist Rahul A PSV ?33 cm/s Left Prox JUAN ?? Prox JUAN PSV ?91 cm/s ?Prox JUAN EDV ? 9 cm/s Left Mid JUAN ?? Mid JUAN PSV ? 81 cm/s ?Mid JUAN EDV ?0 cm/s Left Dist JUAN ?? Dist JUAN PSV ?61 cm/s ?Dist JUAN EDV ? 0 cm/s Left DPA ?? DPA EDV ?9 cm/s ?DPA PSV ? 91 cm/s Right WHITEWATER RAFTING GUIDE ?? WHITEWATER RAFTING GUIDE EDV ? 12 cm/s ?WHITEWATER RAFTING GUIDE PSV ?108 cm/s Right Prox Pop A ?? Prox Pop A EDV ? 0 cm/s ?Prox Pop A PSV ?99 cm/s Right Dist Pop A ?? Dist Pop A PSV ?? 111 cm/s ?Dist Pop A EDV ?16 cm/s Right Prox HAT BRAIDER ?? Prox HAT BRAIDER PSV ?23 cm/s ?Prox HAT BRAIDER EDV ? 6 cm/s Right Mid HAT BRAIDER ?? Mid HAT BRAIDER PSV ? 38 cm/s ?Mid HAT BRAIDER EDV ? 16 cm/s Right Dist HAT BRAIDER ?? Dist HAT BRAIDER PSV ?32 cm/s ?Dist HAT BRAIDER EDV ?10 cm/s Right Prox Rahul A ?? Prox Rahul A EDV ? 7 cm/s ? Prox Rahul A PSV ?19 cm/s Right Mid Rahul A ?? Mid Rahul A EDV ? 8 cm/s ?Mid Rahul A PSV ?30 cm/s Right Dist Rahul A ?? Dist Rahul A EDV ?16 cm/s ? Dist Rahul A PSV ?57 cm/s Right Prox JUAN ?? Prox JUAN PSV ?98 cm/s ?Prox JUAN EDV ? 0 cm/s Right Mid JUAN ?? Mid JUAN PSV ? 92 cm/s ?Mid JUAN EDV ?9 cm/s Right Dist JUAN ?? Dist JUAN PSV ?67 cm/s ?Dist JUAN EDV ? 0 cm/s Right DPA ?? DPA EDV ?6 cm/s ?DPA PSV ? 59 cm/s <Electronic Signature> 04/13/2024 12:44 PM Jeff Grace M.D. Procedure Note Jeff Grace MD - 04/13/2024 Outreach Arterial Duplex Bilateral Vascular Report Pat.Name: Mendez Lay.ID: [id number] [facility] Refer.MD: Outreach, [facility] Exam Time: 12:57:00 PM Study Type:OUTREACH ART DUPLEX SCAN BILATERAL LEG Height: 66 in Age: 11 1955,68Y Sex: M Sonogrphr: Roland Oh [facility] Pat. Stat.:Inpatient Reason for Study:Bilateral leg pain, Bilateral lower leg wounds, Claudication Procedures: Study performed at [facility], [place], [place] and interpreted by [facility]. ++++++++++++++++++++++++++++++++++++ SUMMARY: ++++++++++++++++++++++++++++++++++++ Rt Lower Ext: 0-19% stenosis noted in all segments of the right lower extremity, though WHITEWATER RAFTING GUIDE waveform could be suggestive of inflow disease. Lt Lower Ext: 0-19% stenosis noted in all segments of the left lower extremity, though WHITEWATER RAFTING GUIDE waveform could be suggestive of inflow disease. ++++++++++++++++++++++++++++++++++++ FINDINGS: ++++++++++++++++++++++++++++++++++++ Rt Lower Ext: 0-19% stenosis noted in all segments of the right lower extremity. Lt Lower Ext: 0-19% stenosis noted in all segments of the left lower extremity. ++++++++++++++++++++++++++++++++++++ MEASUREMENTS: ++++++++++++++++++++++++++++++++++++ DOPPLER Left WHITEWATER RAFTING GUIDE WHITEWATER RAFTING GUIDE EDV 21 cm/s WHITEWATER RAFTING GUIDE PSV 116 cm/s Left Prox Pop A Prox Pop A EDV 0 cm/s Prox Pop A PSV 83 cm/s Left Dist Pop A Dist Pop A PSV 88 cm/s Dist Pop A EDV 19 cm/s Left Prox HAT BRAIDER Prox HAT BRAIDER PSV 59 cm/s Prox HAT BRAIDER EDV 0 cm/s Left Mid HAT BRAIDER Mid HAT BRAIDER PSV 27 cm/s Mid HAT BRAIDER EDV 9 cm/s Left Dist HAT BRAIDER Dist HAT BRAIDER PSV 120 cm/s Dist HAT BRAIDER EDV 8 cm/s Left Prox Rahul A Prox Rahul A EDV 0 cm/s Prox Rahul A PSV 52 cm/s Left Mid Rahul A Mid Rahul A EDV 7 cm/s Mid Rahul A PSV 32 cm/s Left Dist Rahul A Dist Rahul A EDV 0 cm/s Dist Rahul A PSV 33 cm/s Left Prox JUAN Prox JUAN PSV 91 cm/s Prox JUAN EDV 9 cm/s Left Mid JUAN Mid JUAN PSV 81 cm/s Mid JUAN EDV 0 cm/s Left Dist JUAN Dist JUAN PSV 61 cm/s Dist JUAN EDV 0 cm/s Left DPA DPA EDV 9 cm/s DPA PSV 91 cm/s Right WHITEWATER RAFTING GUIDE WHITEWATER RAFTING GUIDE EDV 12 cm/s WHITEWATER RAFTING GUIDE PSV 108 cm/s Right Prox Pop A Prox Pop A EDV 0 cm/s Prox Pop A PSV 99 cm/s Right Dist Pop A Dist Pop A PSV 111 cm/s Dist Pop A EDV 16 cm/s Right Prox HAT BRAIDER Prox HAT BRAIDER PSV 23 cm/s Prox HAT BRAIDER EDV 6 cm/s Right Mid HAT BRAIDER Mid HAT BRAIDER PSV 38 cm/s Mid HAT BRAIDER EDV 16 cm/s Right Dist HAT BRAIDER Dist HAT BRAIDER PSV 32 cm/s Dist HAT BRAIDER EDV 10 cm/s Right Prox Rahul A Prox Rahul A EDV 7 cm/s Prox Rahul A PSV 19 cm/s Right Mid Rahul A Mid Rahul A EDV 8 cm/s Mid Rahul A PSV 30 cm/s Right Dist Rahul A Dist Rahul A EDV 16 cm/s Dist Rahul A PSV 57 cm/s Right Prox JUAN Prox JUAN PSV 98 cm/s Prox JUAN EDV 0 cm/s Right Mid JUAN Mid JUAN PSV 92 cm/s Mid JUAN EDV 9 cm/s Right Dist JUAN Dist JUAN PSV 67 cm/s Dist JUAN EDV 0 cm/s Right DPA DPA EDV 6 cm/s DPA PSV 59 cm/s <Electronic Signature> 04/13/2024 12:44 PM Jeff Grace M.D. us Zayra Powell SEWER PIPE OFFBEARER US VASC Final Result documented in this encounter Visit Diagnoses Diagnosis Claudication (CMS/[facility])- Primary Peripheral vascular disease, unspecified Non-pressure chronic ulcer of left calf limited to breakdown of skin ([facility]/HCC HHS/HCC) 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 breakdown of skin ([facility] HHS/HCC) documented in this encounter Administered Medications Inactive Administered Medications - up to 3 most recent administrations Medication Order MAR Action Action Date Dose Rate Site lidocaine 2 % URO-JET jelly Topical, Once, 1 dose, On Taisha 04/06/24 at 1345Indications: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 breakdown of skin ([facility]/HCC HHS/HCC) Given 04/06/2024 1:10 PM CDT documented in this encounter Additional Health Concerns Assessment Noted Time PHQ-9 Depression Total Score: 0 12/02/19 1:18 PM CDT documented as of this encounter Care Teams Warehouse Logistics Coordinator Relationship Specialty Start Date End Date Megan Infante MD [address] [place] [address] PCP - General FAMILY PRACTICE 04/06/16 Zaki Ortiz MD [address] [place] [phone] Consulting Physician PULMONARY DISEASE 07/12/19 Concetta Acevedo MD [address] [place] [address] Surgeon NEUROLOGICAL SURGERY 12/16/22 Jeff Grace MD [address] [place] [address] Consulting Physician INTERNAL MEDICINE 02/11/23 Brit Gonzáles MD [address] [place] [address] Consulting Physician CARDIOVASCULAR DISEASE 12/29/23 documented as of this encounter
--- OUTSIDE RECORDS SUMMARY | 2024-09-03 19:07 | XMS_ITS | Encounter Summary ---
Author Organization [facility] Address [facility] [facility] [place] [address] [place] [address] Care Team Providers Care Automotive Manufacturer Name Role Phone Megan Infante MD Primary Care Provider [phone] Zaki Ortiz MD Unavailable [phone] Concetta Acevedo MD Unavailable + [phone] Jeff Grace MD Unavailable Brit Gonzáles MD Unavailable Reason for Visit * Reason Onset Date Comments Forms 05/01/2024 Encounter Details Date Type Department Care Team (Late st Contact Info) Description 05/01/2024 [facility]phone [facility] [address] [place] [address] Brit Gonzáles MD [address] [place] [address] Forms Social History Tobacco Use Types Packs/Day Years Used Date Smoking Tobacco: Former Passive Smoke Exposure: Past Smokeless Tobacco: Former Chew Alcohol Use Standard Drinks/Week Comments Yes 0 (1 standard drink = 0.6 oz pur e alcohol) 4 beers per week [facility] Utilities Answer Date Recorded In the past 12 months has e [employer], gas, oil, or water [employer] threatened to shut off services in your [...] declined 02/16/2023 How often do you attend sabianist or sikh serv ices? Patient declined 02/16/2023 Do you belong to any clubs o r organizations such as sabianist groups, unions, fraternal or athletic groups, or [...] move on to questions 3-9 0 12/01/2021 [facility] of Occupat ional Health - Occupational [...] Date Author Status No 07/12/2023 6:58 PM RETAIL ASSISTANT MANAGER Liliana Gutierrez RN Active documented in this encounter Progress Notes * Fina Alexandra - 07/07/2024 2:59 PM CST A new form has been faxed for Dr. Gonzáles to sign. The pt surgery was r/s. Dr. Gonzáles has signed this and faxed this back. [place] ASSISTANT MANAGER * Fina Alexandra - 05/16/2024 3:[address] Gonzáles has signed the form and this has been faxed back w/ the office note. * Fina Alexandra - 05/01/2024 3:[address] Ortiz office is requesting the form they faxed be signed and dated by Dr. Gonzáles. I have put this in Dr. Gonzáles's pink folder. documented in this encounter Plan of Treatment Upcoming Encounters Date Type Department Care Team (Late st Contact Info) Description 09/25/2024 2:00 PM RETAIL ASSISTANT MANAGER Appointment [facility] [address] [place] [address] Zayra Powell, [facility] [address] [place] [address] 10/16/2024 3:30 PM RETAIL ASSISTANT MANAGER Office Visit [facility] [address] [place] [address] Brit Gonzáles MD [address] [place] [address] documented as of this encounter Goals Goal [...] documented as of this encounter Care Teams Automotive Manufacturer Relationship Specialty Start Date End Date Megan Infante MD [address] [facility] [place] [address] PCP - General FAMILY PRACTICE 04/06/16 Zaki Ortiz MD [address] [facility] [place] [address] Consulting Physician PULMONARY DISEASE 07/12/19 Concetta Acevedo MD [address] [place] [address] Surgeon NEUROLOGICAL SURGERY 12/16/22 Jeff Grace MD [address] [place] [address] Consulting Physician INTERNAL MEDICINE 02/11/23 Brit Gonzáles MD [address] [place] [address] Consulting Physician CARDIOVASCULAR DISEASE 12/29/23 documented as of this encounter
--- OUTSIDE RECORDS SUMMARY | 2024-09-03 19:07 | XMS_ITS | Encounter Summary ---
Author Organization [facility] Address [facility] [place] [address] [place] [address] Care Team Providers Care Rn Postpartum Name Role Phone Megan Infante MD Primary Care Provider [phone] Zaki Ortiz MD Unavailable [phone] Romeo-Concetta Pond MD Unavailable + [phone] Jeff Grace MD Unavailable Brit Gonzáles MD Unavailable Reason for Visit * Imaging (Urgent) - New Request Specialty Diagnoses / Procedures Referred By Yung t Referred To Contact RADIOLOGY Diagnoses Claudication (CMS/HCC) Procedures USV ART DUPLEX LOW ELZA Zayra Powell, LALIT [address] [place] [address] Phone: tel: fax: Referral ID Status Reason Start Date Expiration Date V isits Requested Visits Authorized [id number] New Request 04/06/2024 04/06/2025 1 1 Encounter Details Date Type Department Care Team (Late st Contact Info) Description 04/11/2024 12:50 PM CDT - 04/11/2024 2:01 PM CDT Hospital Encounter [facility] [address] [place] [address] Zayra Powell FNP [address] [place] [address] Discharge Disposition: Home or Self Care (Routine Discharge) Social History Tobacco Use Types Packs/Day Years Used Date Smoking Tobacco: Former Smokeless Tobacco: Former Chew Alcohol Use Standard Drinks/Week Comments Yes 0 (1 standard drink = 0.6 oz pur e alcohol) 4 beers per week [facility] Utilities Answer Date Recorded In the past 12 months has e [employer], gas, oil, or water company threatened to [...] How often do you attend amish or lutheran serv ices? Patient declined 02/16/2023 Do you [...] move on to questions 3-9 0 12/01/2021 [facility] Occupat ional [facility] - Occupational Stress Questionnaire Answer Date [...] place to sleep or slept in a halfway (including now)? Patient declined 07/12/2023 Sex and [...] st Contact Info) Description 09/25/2024 2:00 PM DIRECTOR OF RECRUITING [facility]ointment [facility] [address] [place] [address] Zayra Powell, [facility] [address] [place] [address] 10/16/2024 3:30 PM DIRECTOR OF RECRUITING Office Visit [facility] [address] [place] [address] Brit Gonzáles MD [address] [place] [address] documented as of this encounter Goals Goal [...] ?Outreach Arterial Duplex Bilateral ?Vascular Report Pat.Name: ??Mendez Lay ?Pat.ID: ?[id number] ? St.Date: ?? 04/11/2024 ? [facility]er[facility]: 12:57:00 PM ? Study Type:OUTREACH ART DUPLEX SCAN BILATERAL LEG Height: ?66 in ?Age: ??1955,68Y ? Sex: ? M ? Sonogrphr: Roland Oh RDCS ? Pat. Stat.:Inpatient ? Reason for Study:Bilateral leg pain, Bilateral lower leg wounds, Claudication Procedures: Study performed at [facility], [place], [place] and interpreted by [facility]. ++++++++++++++++++++++++++++++++++++ SUMMARY: ++++++++++++++++++++++++++++++++++++ Rt Lower Ext: 0-19% stenosis noted in all segments of the right lower extremity, though EYEGLASS INSPECTOR waveform could be suggestive of inflow disease. Lt Lower Ext: 0-19% stenosis noted in all segments of the left lower extremity, though EYEGLASS INSPECTOR waveform could be suggestive of inflow disease. ++++++++++++++++++++++++++++++++++++ FINDINGS: ++++++++++++++++++++++++++++++++++++ Rt Lower Ext: 0-19% stenosis noted in all segments of the right lower ?extremity. Lt Lower Ext: 0-19% stenosis noted in all segments of the left lower ?extremity. ++++++++++++++++++++++++++++++++++++ MEASUREMENTS: ++++++++++++++++++++++++++++++++++++ ?DOPPLER Left EYEGLASS INSPECTOR ?? EYEGLASS INSPECTOR EDV ? 21 cm/s ?EYEGLASS INSPECTOR PSV ?116 cm/s Left Prox Pop A ?? Prox Pop A EDV ? 0 cm/s ?Prox Pop A PSV ?83 cm/s Left Dist Pop A ?? Dist Pop A PSV ?88 cm/s ?Dist Pop A EDV ?19 cm/s Left Prox TIRE BUILDER HEAVY SERVICE ?? Prox TIRE BUILDER HEAVY SERVICE PSV ?59 cm/s ?Prox TIRE BUILDER HEAVY SERVICE EDV ? 0 cm/s Left Mid TIRE BUILDER HEAVY SERVICE ?? Mid TIRE BUILDER HEAVY SERVICE PSV ? 27 cm/s ?Mid TIRE BUILDER HEAVY SERVICE EDV ?9 cm/s Left Dist TIRE BUILDER HEAVY SERVICE ?? Dist TIRE BUILDER HEAVY SERVICE PSV ? 120 cm/s ?Dist TIRE BUILDER HEAVY SERVICE EDV ? 8 cm/s Left Prox Rahul [...] cm/s ?DPA PSV ? 91 cm/s Right EYEGLASS INSPECTOR ?? EYEGLASS INSPECTOR EDV ? 12 cm/s ?EYEGLASS INSPECTOR PSV ?108 cm/s Right Prox Pop A ?? Prox Pop A EDV ? 0 cm/s ?Prox Pop A PSV ?99 cm/s Right Dist Pop A ?? Dist Pop A PSV ?? 111 cm/s ?Dist Pop A EDV ?16 cm/s Right Prox TIRE BUILDER HEAVY SERVICE ?? Prox TIRE BUILDER HEAVY SERVICE PSV ?23 cm/s ?Prox TIRE BUILDER HEAVY SERVICE EDV ? 6 cm/s Right Mid TIRE BUILDER HEAVY SERVICE ?? Mid TIRE BUILDER HEAVY SERVICE PSV ? 38 cm/s ?Mid TIRE BUILDER HEAVY SERVICE EDV ? 16 cm/s Right Dist TIRE BUILDER HEAVY SERVICE ?? Dist TIRE BUILDER HEAVY SERVICE PSV ?32 cm/s ?Dist TIRE BUILDER HEAVY SERVICE EDV ?10 cm/s Right Prox Rahul A ?? Prox Rahul A EDV ? 7 cm/s ? Prox Rahul A PSV ?19 cm/s Right Mid Rahul A ?? Mid Rahul A EDV ? 8 cm/s ?Mid Rahul A PSV ?30 cm/s Right Dist Rahul A ?? Dist Rahul A EDV ?16 cm/s ? Dist Rahlu A PSV ?57 cm/s Right Prox JUAN [...] Procedure Note Jeff Grace MD - 04/13/2024 [facility] Arterial Duplex Bilateral Vascular Report Pat.Name: Alireza Mendez esha Pat.ID: [id number] .Date: 04/11/2024 Refer.MD: [facility] Exam Time: 12:57:00 PM Study Type:OUTREACH ART DUPLEX SCAN BILATERAL LEG Height: 66 in Age: 11 1955,68Y Sex: M Sonogrphr: Roland Oh [facility] Pat. Stat.:[facility]patient Reason for Study:Bilateral leg pain, Bilateral lower leg wounds, Claudication Procedures: Study performed at [facility], [place], [place] and interpreted by [facility]. ++++++++++++++++++++++++++++++++++++ SUMMARY: ++++++++++++++++++++++++++++++++++++ Rt Lower Ext: 0-19% stenosis noted in all segments of the right lower extremity, though EYEGLASS INSPECTOR waveform could be suggestive of inflow disease. Lt Lower Ext: 0-19% stenosis noted in all segments of the left lower extremity, though EYEGLASS INSPECTOR waveform could be suggestive of inflow disease. ++++++++++++++++++++++++++++++++++++ FINDINGS: ++++++++++++++++++++++++++++++++++++ Rt Lower Ext: 0-19% stenosis noted in all segments of the right lower extremity. Lt Lower Ext: 0-19% stenosis noted in all segments of the left lower extremity. ++++++++++++++++++++++++++++++++++++ MEASUREMENTS: ++++++++++++++++++++++++++++++++++++ DOPPLER Left EYEGLASS INSPECTOR EYEGLASS INSPECTOR EDV 21 cm/s EYEGLASS INSPECTOR PSV 116 cm/s Left Prox Pop A Prox Pop A EDV 0 cm/s Prox Pop A PSV 83 cm/s Left Dist Pop A Dist Pop A PSV 88 cm/s Dist Pop A EDV 19 cm/s Left Prox TIRE BUILDER HEAVY SERVICE Prox TIRE BUILDER HEAVY SERVICE PSV 59 cm/s Prox TIRE BUILDER HEAVY SERVICE EDV 0 cm/s Left Mid TIRE BUILDER HEAVY SERVICE Mid TIRE BUILDER HEAVY SERVICE PSV 27 cm/s Mid TIRE BUILDER HEAVY SERVICE EDV 9 cm/s Left Dist TIRE BUILDER HEAVY SERVICE Dist TIRE BUILDER HEAVY SERVICE PSV 120 cm/s Dist TIRE BUILDER HEAVY SERVICE EDV 8 cm/s Left Prox Rahul A [...] 9 cm/s DPA PSV 91 cm/s Right EYEGLASS INSPECTOR EYEGLASS INSPECTOR EDV 12 cm/s EYEGLASS INSPECTOR PSV 108 cm/s Right Prox Pop A Prox Pop A EDV 0 cm/s Prox Pop A PSV 99 cm/s Right Dist Pop A Dist Pop A PSV 111 cm/s Dist Pop A EDV 16 cm/s Right Prox TIRE BUILDER HEAVY SERVICE Prox TIRE BUILDER HEAVY SERVICE PSV 23 cm/s Prox TIRE BUILDER HEAVY SERVICE EDV 6 cm/s Right Mid TIRE BUILDER HEAVY SERVICE Mid TIRE BUILDER HEAVY SERVICE PSV 38 cm/s Mid TIRE BUILDER HEAVY SERVICE EDV 16 cm/s Right Dist TIRE BUILDER HEAVY SERVICE Dist TIRE BUILDER HEAVY SERVICE PSV 32 cm/s Dist TIRE BUILDER HEAVY SERVICE EDV 10 cm/s Right Prox Rahul A [...] cm/s <Electronic Signature> 04/13/2024 12:44 PM Jeff Garce M.D. us Zayra K Andre CUT OFF OPERATOR SCORER US VASC Final Result documented in this encounter Visit Diagnoses Not on filedocumented in this encounter Additional Health Concerns Assessment Noted Time PHQ-9 Depression Total Score: 0 12/02/19 22 1:18 PM CDT documented as of this encounter Care Teams Rn Postpartum Relationship Specialty Start Date End Date Megan Infante MD [address] [place] [id number] PCP - General FAMILY PRACTICE 04/06/16 Zaki Ortiz MD [address] [place] [address] Consulting Physician PULMONARY DISEASE 07/12/19 Romeo-Concetta Pond MD [address] [place] [address] Surgeon NEUROLOGICAL SURGERY 12/16/22 Jeff Grace MD [address] [place] [address] Consulting Physician INTERNAL MEDICINE 02/11/23 Brit Gonzáles MD [address] [place] [address] Consulting Physician CARDIOVASCULAR DISEASE 12/29/23 documented as of this encounter
--- OUTSIDE RECORDS SUMMARY | 2024-09-03 19:07 | XMS_ITS | Encounter Summary ---
Author Organization [facility] Address [facility] [place] [address] [place] [address] Care Team Providers Care Fuel Efficient Automobile Designer Name Role Phone Megan Infante MD Primary Care Provider [phone] Zaki Ortiz MD Unavailable [phone] Concetta Acevedo MD Unavailable + [phone] Jeff Grace MD Unavailable Brit Gonzáles MD Unavailable Encounter Details Date Type Department Care Team (Latest Contact Info) Description 04/20/2024 Travel Social History Tobacco Use Types Packs/Day Years Used Date Smoking Tobacco: Former Passive Smoke Exposure: Past Smokeless Tobacco: Former Chew Alcohol Use Standard Drinks/Week Comments Yes 0 (1 standard drink = 0.6 oz pur e alcohol) 4 beers per week [facility] Utilities Answer Date Recorded In the past 12 months has [facility] [employer], gas, oil, or water [employer] threatened to shut off services in your [...] declined 02/16/2023 How often do you attend faith or samaritan serv ices? Patient declined 02/16/2023 Do you belong to any clubs o r organizations such as faith groups, unions, fraternal or athletic groups, or [...] move on to questions 3-9 0 12/01/2021 [facility] Occupat ional Health - [...] Date Author Status No 07/12/2023 6:58 PM ENVIRONMENTAL SERVICES FLOOR TECH Liliana Gutierrez, RN Active documented in this encounter Plan of Treatment Upcoming Encounters Date Type Department Care Team (Late st Contact Info) Description 09/25/2024 2:00 PM ENVIRONMENTAL SERVICES FLOOR TECH Appointment [facility] [address] [facility] [place] [address] Zayra Powell, PHARMACIST'S AIDE [address] [place] [address] 10/16/2024 3:30 PM ENVIRONMENTAL SERVICES FLOOR TECH Office Visit [facility] [address] [facility] [place] [address] Brit Gonzáles MD [address] [place] [address] documented as of this encounter [...] documented as of this encounter Care Teams Fuel Efficient Automobile Designer Relationship Specialty Start Date End Date Megan Infante MD [address] [place] [address] PCP - General FAMILY PRACTICE 04/06/16 Zaki Ortiz MD [address] [place] [address] Consulting Physician PULMONARY DISEASE 07/12/19 Concetta Acevedo MD [address] [place] [address] Surgeon NEUROLOGICAL SURGERY 12/16/22 Jeff Grace MD [address] [place] [address] Consulting Physician INTERNAL MEDICINE 02/11/23 Brit Gonzáles MD [address] [place] [address] Consulting Physician CARDIOVASCULAR DISEASE 12/29/23 documented as of this encounter
--- OUTSIDE RECORDS SUMMARY | 2024-09-03 19:07 | XMS_ITS | Encounter Summary ---
Author Organization [facility] Address [facility] [place] [address] [place] [address] Care Team Providers Care Carton Liner Name Role Phone Megan Infante MD Primary Care Provider [phone] Sharmila Davis APRN, NP-C Unavailable [phone] Zaki Ortiz MD Unavailable [phone] Concetta Acevedo MD Unavailable + [phone] Jeff Grace MD Unavailable Brit Gonzáles MD Unavailable Encounter Details Date Type Department Care Team (Latest Contact Info) Description 04/03/2024 Travel Social History Tobacco Use Types Packs/Day Years Used Date Smoking Tobacco: Former Smokeless Tobacco: Former Chew Alcohol Use Standard Drinks/Week Comments Yes 0 (1 standard drink = 0.6 oz pur e alcohol) 4 beers per week [facility] Utilities Answer Date Recorded In the past 12 months has [employer], [employer], oil, or water [employer] threatened to shut off services in your [...] declined 02/16/2023 How often do you attend christianity or judaism serv ices? Patient declined 02/16/2023 Do you belong to any clubs o r organizations such as christianity groups, unions, fraternal or athletic groups, or [...] move on to questions 3-9 0 12/01/2021 [facility] Occupat ional Health - [...] a chcf (including now)? Patient declined 07/12/2023 Sex and [...] Author Status No 07/12/2023 6:58 PM RETAIL SALES MERCHANDISER DEVELOPMENT Liliana Gutierrez, YUNI Active documented in this encounter Plan of Treatment Upcoming Encounters Date Type Department Care Team (Late st Contact Info) Description 09/25/2024 2:00 PM RETAIL SALES MERCHANDISER DEVELOPMENT [facility]ointment [facility] [address] [place] [address] Zayra Powell, PROSTHETICS TECHNICIAN [address] [facility] [place] [address] 10/16/2024 3:30 PM RETAIL SALES MERCHANDISER DEVELOPMENT Office Visit [facility] [address] [facility] [place] [address] Brit Gonzáles MD [address] [place] [address] documented as of this encounter Goals [...] documented as of this encounter Care Teams Carton Liner Relationship Specialty Start Date End Date Megan Infante MD [address] [facility] [place] [address] PCP - General FAMILY PRACTICE 04/06/16 Sharmila Davis APRN, CHILD WELFARE CONSULTANT-C [address] [place] [address] NURSE PRACTITIONER 01/04/17 04/03/24 Zaki Ortiz MD [address] [place] [address] Consulting Physician PULMONARY DISEASE 07/12/19 Concetta Acevedo MD [address] [place] [address] Surgeon NEUROLOGICAL SURGERY 12/16/22 Jeff Grace MD [address] [place] [address] Consulting Physician INTERNAL MEDICINE 02/11/23 Brit Gonzáles MD [address] [place], [place] [address] Consulting Physician CARDIOVASCULAR DISEASE 12/29/23 documented as of this encounter
--- OUTSIDE RECORDS SUMMARY | 2024-09-03 19:07 | XMS_ITS | Encounter Summary ---
Author Organization [facility] Address [facility] [place] [address] [place] [address] Care Team Providers Care Audio/Video Engineer Name Role Phone Megan Infante MD Primary Care Provider [phone] Zaki Ortiz MD Unavailable [phone] Concetta Acevedo MD Unavailable + [phone] Jeff Grace MD Unavailable Brit Gonzáles MD Unavailable Encounter Details Date Type Department Care Team (Latest Contact Info) Description 05/02/2024 Travel Social History Tobacco Use Types Packs/Day Years Used Date Smoking Tobacco: Former Passive Smoke Exposure: Past Smokeless Tobacco: Former Chew Alcohol Use Standard Drinks/Week Comments Yes 0 (1 standard drink = 0.6 oz pur e alcohol) 4 beers per week [facility] Utilities Answer Date Recorded In the past 12 months has [facility] [employer], gas, oil, or water [employer] threatened to shut off services in your [...] 3-9 0 12/01/2021 [facility] of Occupat ional Health - Occupational [...] place to sleep or slept in a retirement (including now)? Patient declined 07/12/2023 Sex and [...] Date Author Status No 07/12/2023 6:58 PM INCIDENT COORDINATOR Liliana Gutierrez, RN Active documented in this encounter Plan of Treatment Upcoming Encounters Date Type Department Care Team (Late st Contact Info) Description 09/25/2024 2:00 PM INCIDENT COORDINATOR Appointment [facility] [address] [place] [address] Zayra Poewll, REPAIR ORDER CLERK [address] [facility] [place] [address] 10/16/2024 3:30 PM INCIDENT COORDINATOR Office Visit [facility] [address] [facility] [place] [address] Brit Gonzáles MD [address] [place] [address] documented as of this encounter [...] documented as of this encounter Care Teams Audio/Video Engineer Relationship Specialty Start Date End Date Megan Infante MD [address] [place] [address] PCP - General FAMILY PRACTICE 04/06/16 Zaki Ortiz MD [address] [place] [address] Consulting Physician PULMONARY DISEASE 07/12/19 Concetta Acevedo MD [address] [place] [address] Surgeon NEUROLOGICAL SURGERY 12/16/22 Jeff Grace MD [address] [place] [address] Consulting Physician INTERNAL MEDICINE 02/11/23 Brit Gonzáles MD [address] [place] [address] Consulting Physician CARDIOVASCULAR DISEASE 12/29/23 documented as of this encounter
--- OUTSIDE RECORDS SUMMARY | 2024-09-03 19:07 | XMS_ITS | Encounter Summary ---
Author Organization [facility] Address [facility] [facility] [place] [place] [address] [place] [address] Care Team Providers Care Registered Dietetic Technician Name Role Phone Megan Infante MD Primary Care Provider [phone] Zaki Ortiz MD Unavailable [phone] Concetta Acevedo MD Unavailable + [phone] Jeff Grace MD Unavailable Brit Gonzáles MD Unavailable Encounter Details Date Type Department Care Team (Latest Contact Info) Description 04/11/2024 Travel Social History Tobacco Use Types Packs/Day Years Used Date Smoking Tobacco: Former Smokeless Tobacco: Former Chew Alcohol Use Standard Drinks/Week Comments Yes 0 (1 standard drink = 0.6 oz pur e alcohol) 4 beers per week [facility] Utilities Answer Date Recorded In the past 12 months has [facility] [employer], [employer], oil, or water [employer] threatened to shut off services in your [...] declined 02/16/2023 How often do you attend mormonism or yazidism serv ices? Patient declined 02/16/2023 Do you belong to any clubs o r organizations such as mormonism groups, unions, fraternal or athletic groups, or [...] move on to questions 3-9 0 12/01/2021 [facility] of Occupat ional Health - Occupational [...] Date Author Status No 07/12/2023 6:58 PM TELEGRAPH SERVICE RATER Liliana Gutierrez RN Active documented in this encounter Plan of Treatment Upcoming Encounters Date Type Department Care Team (Late st Contact Info) Description 09/25/2024 2:00 PM TELEGRAPH SERVICE RATER [facility]ointment [facility] [address] [place] [address] Zayra Powell, MUSIC DEPARTMENT CHAIR [address] [place] [address] 10/16/2024 3:30 PM TELEGRAPH SERVICE RATER Office Visit [facility] [address] [place] [address] Brit Gonzáles MD [address] [place] [address] documented as of this encounter [...] documented as of this encounter Care Teams Registered Dietetic Technician Relationship Specialty Start Date End Date Megan Infante MD [address] [place] [address] PCP - General FAMILY PRACTICE 04/06/16 Zaki Ortiz MD [address] [place] [address] Consulting Physician PULMONARY DISEASE 07/12/19 Concetta Acevedo MD [address] [place] [address] Surgeon NEUROLOGICAL SURGERY 12/16/22 Jeff Grace MD [address] [place] [address] Consulting Physician INTERNAL MEDICINE 02/11/23 Brit Gonzáles MD [address] [place] [address] Consulting Physician CARDIOVASCULAR DISEASE 12/29/23 documented as of this encounter
--- OUTSIDE RECORDS SUMMARY | 2024-09-03 19:07 | XMS_ITS | Encounter Summary ---
Author Organization [facility] Address [facility] [place] [address] [place] [address] Care Team Providers Care Farm Implement Mechanic Name Role Phone Megan Infante MD Primary Care Provider [phone] Zaki Ortiz MD Unavailable [phone] Concetta Acevedo MD Unavailable + [phone] Jeff Grace MD Unavailable Brit Gonzáles MD Unavailable Encounter Details Date Type Department Care Team (Latest Contact Info) Description 04/27/2024 Travel Social History Tobacco Use Types Packs/Day Years Used Date Smoking Tobacco: Former Passive Smoke Exposure: Past Smokeless Tobacco: Former Chew Alcohol Use Standard Drinks/Week Comments Yes 0 (1 standard drink = 0.6 oz pur e alcohol) 4 beers per week [facility] Utilities Answer Date Recorded In the past 12 months has [facility] [employer], gas, oil, or water [employer] threatened to shut off services in your [...] declined 02/16/2023 How often do you attend moravian or congregation serv ices? Patient declined 02/16/2023 Do you belong to any clubs o r organizations such as moravian groups, unions, fraternal or athletic groups, or [...] move on to questions 3-9 0 12/01/2021 [facility] of Occupat ional Health - [...] Date Author Status No 07/12/2023 6:58 PM SERVICE MANAGER Liliana Gutierrez, RN Active documented in this encounter Plan of Treatment Upcoming Encounters Date Type Department Care Team (Late st Contact Info) Description 09/25/2024 2:[address]NAGER Appointment [facility] [address] [facility] [place] [address] Zayra Powell, DIGITAL CONTENT MARKETING MANAGER [address] [facility] [place] [address] 10/16/2024 3:30 PM SERVICE MANAGER Office Visit [facility] [address] [facility] [place] [address] Brit Gonzáles MD [address] [place] [address] documented as of this encounter [...] documented as of this encounter Care Teams Farm Implement Mechanic Relationship Specialty Start Date End Date Megan Infante MD [address] [place] [address] PCP - General FAMILY PRACTICE 04/06/16 Zaki Ortiz MD [address] [place] [address] Consulting Physician PULMONARY DISEASE 07/12/19 Concetta Acevedo MD [address] [place] [address] Surgeon NEUROLOGICAL SURGERY 12/16/22 Jeff Grace MD [address] [place] [address] Consulting Physician INTERNAL MEDICINE 02/11/23 Brit Gonzáles MD [address] [place] [address] Consulting Physician CARDIOVASCULAR DISEASE 12/29/23 documented as of this encounter
--- OUTSIDE RECORDS SUMMARY | 2024-09-03 19:07 | XMS_ITS | Encounter Summary ---
Author Organization [facility] Address [facility] [place] [place] [address] [place] [address] Care Team Providers Care Ski Production Supervisor Name Role Phone Megan Infante MD Primary Care Provider [phone] Zaki Ortiz MD Unavailable [phone] Concetta Acevedo MD Unavailable + [phone] Jeff Grace MD Unavailable Brit Gonzáles MD Unavailable Encounter Details Date Type Department Care Team (Late st Contact Info) Description 04/11/2024 2:02 PM CDT - 04/11/2024 11:59 PM CDT Hospital Encounter [facility] [address] [place] [address] Zayra Powell, [facility] [address] [place] [address] Discharge Disposition: Home or Self Care (Routine Discharge) Social History Tobacco Use Types Packs/Day Years Used Date Smoking Tobacco: Former Smokeless Tobacco: Former Chew Alcohol Use Standard Drinks/Week Comments Yes 0 (1 standard drink = 0.6 oz pur e alcohol) 4 beers per week [facility] Utilities Answer Date Recorded In the past 12 months has e [employer], gas, oil, or water [employer] threatened to shut off services in [...] declined 02/16/2023 How often do you attend buddhist or christian serv ices? Patient declined 02/16/2023 Do you belong to any clubs o r organizations such as buddhist groups, unions, fraternal or athletic groups, or [...] questions 3-9 0 12/01/2021 [facility] - Occupational Stress Questionnaire Answer Date Recorded [...] place to sleep or slept in a care home (including now)? Patient declined 07/12/2023 Sex and [...] total) by mouth nightly at bedtime. 03/24/2022 TRELEPATY ELLIPTA 100-62.5-25 MCG/ACT AEROSOL POWDER, BREATH ACTIVATED [...] Progress Notes * Mary Moore RN - 04/11/2024 2:30 PM CDTEncounter addended by: Mary Moore RN on: 04/11/2024 3:48 PM Actions taken: MAR administration accepted documented in this encounter Plan of Treatment Upcoming Encounters Date Type Department Care Team (Late st Contact Info) Description 09/25/2024 2:00 PM CORK FLOOR INSTALLER Appointment [facility] [address] [place] [address] Zayra Powell, DEFENSIVE LINE COACH [address] [place] [address] 10/16/2024 3:30 PM CORK FLOOR INSTALLER Office Visit [facility] [address] [place] [phone] Brit Gonzáles MD [address] [place] [address] documented as of this encounter Goals Goal Patient Goal Type Associated Problems Recent Progress Patient-Stated? Author Family - family caregiver with be involved in care transitions and discharge planning Lifestyle No Karen Quezada, RN documented as of this encounter Visit Diagnoses Not on filedocumented in this encounter Administered Medications Inactive Administered Medications - up to 3 most recent administrations Medication Order MAR Action Action Date Dose Rate Site lidocaine 2 % URO-JET jelly Topical, Once, 1 dose, On Wed04/11/24 at 1530 Given 04/11/2024 2:45 PM CDT documented in this encounter Additional Health Concerns Assessment Noted Time PHQ-9 Depression Total Score: 0 12/02/19 1:18 PM CDT documented as of this encounter Care Teams Ski Production Supervisor Relationship Specialty Start Date End Date Megan Infante MD [address] [place] [phone] PCP - General FAMILY PRACTICE 04/06/16 Zaki Ortiz MD [address] [place] [phone] Consulting Physician PULMONARY DISEASE 07/12/19 Concetta Acevedo MD [address] [place] [address] Surgeon NEUROLOGICAL SURGERY 12/16/22 Jeff Grace MD [address] [place] [address] Consulting Physician INTERNAL MEDICINE 02/11/23 Brit Gonzáles MD [address] [place] [address] Consulting Physician CARDIOVASCULAR DISEASE 12/29/23 documented as of this encounter
--- OUTSIDE RECORDS SUMMARY | 2024-09-03 19:07 | XMS_ITS | Encounter Summary ---
Author Organization [facility] Address [facility] [place] [address] [place] [address] Care Team Providers Care Icu Nurse Name Role Phone Megan Infante MD Primary Care Provider [phone] Zaki Ortiz MD Unavailable [phone] Concetta Acevedo MD Unavailable + [phone] Jeff Grace MD Unavailable Brit Gonzáles MD Unavailable Encounter Details Date Type Department Care Team (Late st Contact Info) Description 04/18/2024 1:37 PM CDT - 04/18/2024 11:59 PM CDT Hospital Encounter [facility] [address] [place] [address] Zayra Powell, [facility] [address] [place] [address] Discharge Disposition: Home or Self Care (Routine Discharge) Social History Tobacco Use Types Packs/Day Years Used Date Smoking Tobacco: Former Passive Smoke Exposure: Past Smokeless Tobacco: Former Chew Alcohol Use Standard Drinks/Week Comments Yes 0 (1 standard drink = 0.6 oz pur e alcohol) 4 beers per week [facility] Utilities Answer Date Recorded In the past 12 months has e electric, gas, oil, or water [employer] threatened to shut off services in your [...] declined 02/16/2023 How often do you attend orthodox or christianity serv ices? Patient declined 02/16/2023 Do you belong to any clubs o r organizations such as orthodox groups, unions, fraternal or athletic groups, or [...] move on to questions 3-9 0 12/01/2021 [facility] - Occupational Stress Questionnaire [...] place to sleep or slept in a long-term (including now)? Patient declined 07/12/2023 Sex and [...] Progress Notes * Mary Moore RN - 04/18/2024 2:00 PM CDTEncounter addended by: Mary Moore RN on: 04/18/2024 3:20 PM Actions taken: MAR administration accepted documented in this encounter Plan of Treatment Upcoming Encounters Date Type Department Care Team (Late st Contact Info) Description 09/25/2024 2:00 PM BROKE HANDLER Appointment [facility] [address] [place] [address] Zayra Powell, EMBEDDED LINUX ENGINEER [address] [place] [address] 10/16/2024 3:30 PM BROKE HANDLER Office Visit [facility] [address] [place] [address] Brit Gonzáles MD [address] [place] [address] documented as of this encounter Goals Goal [...] URO-JET jelly Topical, Once, 1 dose, On Wed04/18/24 at 1500Indications: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),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) Given 04/18/2024 2:00 PM CDT documented in this encounter Additional Health Concerns Assessment Noted Time PHQ-9 Depression Total Score: 0 12/02/19 22 1:18 PM CDT documented as of this encounter Care Teams Icu Nurse Relationship Specialty Start Date End Date Megan Infante MD [address] [facility] [place] [phone] PCP - General FAMILY PRACTICE 04/06/16 Zaki Ortiz MD [address] [place] [phone] Consulting Physician PULMONARY DISEASE 07/12/19 Romeo-Concetta Pond MD [address] [place] [phone] Surgeon NEUROLOGICAL SURGERY 12/16/22 Jeff Grace MD [address] [place] [address]27[address] Consulting Physician INTERNAL MEDICINE 02/11/23 Brit Gonzáles MD [address] [place] [address] Consulting Physician CARDIOVASCULAR DISEASE 12/29/23 documented as of this encounter
--- OUTSIDE RECORDS SUMMARY | 2024-09-03 19:07 | XMS_ITS | Encounter Summary ---
Author Organization [facility] Address [facility]6 [facility] [place] [address] [place] [address] Care Team Providers Care Chief Credit Officer Name Role Phone Megan Infante MD Primary Care Provider [phone] Zaki Ortiz MD Unavailable [phone] Concetta Acevedo MD Unavailable + [phone] eJff rGace MD Unavailable Brit Gonzáles MD Unavailable Encounter Details Date Type Department Care Team (Latest Contact Info) Description 04/06/2024 Travel Social History Tobacco Use Types Packs/Day Years Used Date Smoking Tobacco: Former Smokeless Tobacco: Former Chew Alcohol Use Standard Drinks/Week Comments Yes 0 (1 standard drink = 0.6 oz pur e alcohol) 4 beers per week [facility] Utilities Answer Date Recorded In the past 12 months has [facility] [employer], [employer], oil, or water [employer] threatened to shut off services in your [...] How often do you attend sabianist or mormonism serv ices? Patient declined 02/16/2023 Do you [...] move on to questions 3-9 0 12/01/2021 [facility] - [...] Date Author Status No 07/12/2023 6:58 PM WIRE PHOTO OPERATOR Liliana Gutierrez RN Active documented in this encounter Plan of Treatment Upcoming Encounters Date Type Department Care Team (Late st Contact Info) Description 09/25/2024 2:00 PM WIRE PHOTO OPERATOR Appointment [facility] [address] [place] [address] Zayra Powell, DOCK ATTENDANT [address] [place] [address] 10/16/2024 3:30 PM WIRE PHOTO OPERATOR Office Visit [facility] [address] [place] [address] Brit Gonzáles MD [address] [place] [address] documented as of this encounter [...] documented as of this encounter Care Teams Chief Credit Officer Relationship Specialty Start Date End Date Megan Infante MD [address] [place] [address] PCP - General FAMILY PRACTICE 04/06/16 Zaki Ortiz MD [address] [place] [phone] Consulting Physician PULMONARY DISEASE 07/12/19 Concetta Acevedo MD [address] [place] [address] Surgeon NEUROLOGICAL SURGERY 12/16/22 Jeff Grace MD [address] [place] [address] Consulting Physician INTERNAL MEDICINE 02/11/23 Brit Gonzáles MD [address] [place] [address] Consulting Physician CARDIOVASCULAR DISEASE 12/29/23 documented as of this encounter
--- OUTSIDE RECORDS SUMMARY | 2024-09-03 19:07 | XMS_ITS | Encounter Summary ---
Author Organization [facility] Address [facility]6 [facility] [place] [address] [place] [address] Care Team Providers Care Electrical Project Engineer Name Role Phone Megan Infante MD Primary Care Provider [phone] Zaki Ortiz MD Unavailable [phone] Concetta Acevedo MD Unavailable + [phone] Jeff Grace MD Unavailable Brit Gonzáles MD Unavailable Encounter Details Date Type Department Care Team (Late st Contact Info) Description 04/27/2024 2:48 PM CDT - 04/27/2024 4:10 PM CDT Hospital Encounter [facility] [address] [place] [address] Zayra Powell, [facility] [address] [place] [address] Discharge Disposition: Home or Self Care (Routine Discharge) Social History Tobacco Use Types Packs/Day Years Used Date Smoking Tobacco: Former Passive Smoke Exposure: Past Smokeless Tobacco: Former Chew Alcohol Use Standard Drinks/Week Comments Yes 0 (1 standard drink = 0.6 oz pur e alcohol) 4 beers per week [facility] Utilities Answer Date Recorded In [...] declined 02/16/2023 How often do you attend mosque or mandaen serv ices? Patient declined 02/16/2023 Do you belong to any clubs o r organizations such as mosque groups, unions, fraternal or athletic groups, or [...] group home (including now)? Patient declined 07/12/2023 Sex [...] st Contact Info) Description 09/25/2024 2:00 [address] App[address] [facility] [address] [place] [address] Zayra Powell, WAX SPECIALIST [address] [place] [address] 10/16/2024 3:30 PM BLADE BONER Office Visit [facility] [address] [place] [phone] Brit Gonzáles MD [address] [place] [address] documented as of this encounter Goals Goal Patient Goal Type Associated Problems Recent Progress Patient-Stated? 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) documented in this encounter Results * (ABNORMAL) BASIC METABOLIC PANEL (04/27/2024 2:55 PM CDT) SODIUM S/P/B 138 136 - 145 MMOL/L 04/27/2024 3:13 PM CDT [facility] POTASSIUM S/P/B 4.6 3.5 - 5.1 MMOL/L 04/27/2024 3:13 PM CDT [facility] CHLORIDE S/P/B 103 98 - 107 MMOL/L 04/27/2024 3:13 PM CDT [facility] CO2 32.7(H) 21.0 - 32.0 MMOL/L 04/27/2024 3:13 PM CDT [facility] GLUCOSE 114(H) 70 - 99 MG/DL 04/27/2024 3:13 PM CDT [facility] Comment: FASTING GLUCOSE 100 TO 125 MG/DL IS CONSISTENT WITH IMPAIRED FASTING GLUCOSE. FASTING GLUCOSE >125 MG/DL IS CONSISTENT WITH DIABETES. RANDOM GLUCOSE >200 MG/DL WITH HYPERGLYCEMIC SYMPTOMS IS CONSISTENT WITH DIABETES. PER ADA GUIDELINES BUN 43(H) 6 - 24 MG/DL 04/27/2024 3:13 PM CDT [facility] CREATININE S/P/B 1.65(H) 0.70 - 1.30 MG/DL 04/27/2024 3:13 PM CDT [facility] CALCIUM S/P/B 9.2 8.4 - 10.5 MG/DL 04/27/2024 3:13 PM CDT [facility] ANION GAP 2.3(L) 5.0 - 15.0 MMOL/L 04/27/2024 3:13 PM CDT [facility] OSMOLALITY (CALC) 298 MOSM/KG 024 3:13 PM CDT [facility] Comment:REFERENCE RANGE NOT ESTABLISHED GFR ESTIMATE 45(L) >89 ML/MIN/1. 73 M2 04/27/2024 3:13 PM CDT [facility] GFR NOTES GFR REFERENCE S: 04/27/2024 3:13 PM CDT [facility] Comment: THE ESTIMATED GFR IS [...] ml/min/1.73 m2 G5,KIDNEY FAILURE: <15 ml/min/1.73 m2 04/27/2024 2:55 PM CDT Zayra Powell [facility] Final Result [facility] [address] [place] [address], * (ABNORMAL) CBC W/DIFF AUTOMATED (04/27/2024 2:55 PM CDT) WBC 7.40 4.00 - 10.80 x10'3/uL 04/27/2024 3:16 PM CDT [facility] RBC 4.45(L) 4.50 - 6.10 x10'6/uL 04/27/2024 3:16 PM CDT [facility] HGB 12.7(L) 13.0 - 18.0 G/DL 04/27/2024 3:16 PM CDT [facility] HCT 39.7 37.0 - 52.0 % 04/27/2024 3:16 PM CDT [facility] MCV 89.2 78.0 - 100.0 FL 04/27/2024 3:16 PM CDT [facility] MCH 28.5 27.0 - 31.0 PG 04/27/2024 3:16 PM CDT [facility] MCHC 32.0(L) 33.0 - 36.0 G/DL 04/27/2024 3:16 PM CDT [facility] RDW 16.9(H) 11.5 - 14.5 % 04/27/2024 3:16 PM CDT [facility] PLT 115(L) 150 - 350 x10'3/uL 04/27/2024 3:16 PM CDT [facility] MPV 10.0 7.4 - 10.4 FL 04/27/2024 3:16 PM CDT [facility] CBC COMMENT NORMAL REFERENCE RANGE NOT ESTABLISHED FOR THE PROPORTIONAL LEUKOCYTE DIFFERENTIAL. 04/27/2024 3:16 PM CDT [facility] NEUTROPHILS % 64.6 % 04/27/2024 3:44 PM CDT [facility] LYMPHOCYTES % 16.5 % 04/27/2024 3:44 PM CDT [facility] MONOCYTES % 12.8 % 04/27/2024 3:44 PM CDT [facility] EOSINOPHILS % 5.3 % 04/27/2024 3:44 PM CDT [facility] BASOPHILS % 0.5 % 04/27/2024 3:44 PM CDT [facility] IMMATURE GRANS % 0.3 % 04/27/20 3:44 PM CDT [facility] NRBC % 0.0 % 04/27/2024 3:44 PM CDT [facility] ABS. NEUTROPHILS 4.78 1.60 - 8.30 x10'3/uL 04/27/2024 3:44 PM CDT [facility] ABS. LYMPHOCYTES 1.22 0.80 - 4.70 x10'3/uL 04/27/2024 3:44 PM CDT [facility] ABS. MONOCYTES 0.95 0.00 - 1.50 x10'3/uL 04/27/2024 3:44 PM CDT [facility] ABS. EOSINOPHILS 0.39 0.00 - 0.40 x10'3/uL 04/27/2024 3:44 PM CDT [facility] ABS. BASOPHILS 0.04 0.00 - 0.20 x10'3/uL 04/27/2024 3:44 PM CDT [facility] ABS. IMMATURE GRANULOCYTES 0.02 0.00 - 0.03 x10'3/uL 04/27/2024 3:44 PM CDT [facility] ABS. NUCLEATED RBC'S 0.00 0.00 - 0.01 x10'3/uL 04/27/2024 3:44 PM CDT [facility] PLT MORPH. 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) documented in this encounter Additional Health Concerns Assessment Noted Time PHQ-9 Depression Total Score: 0 12/02/19 22 1:18 PM CDT documented as of this encounter Care Teams Electrical Project Engineer Relationship Specialty Start Date End Date Megan Infante MD [address] [place] [address] PCP - General FAMILY PRACTICE 04/06/16 Zaki Ortiz MD [address] [place] [phone] Consulting Physician PULMONARY DISEASE 07/12/19 Concetta Acevedo MD [address] [place] [address] Surgeon NEUROLOGICAL SURGERY 12/16/22 Jeff Grace MD [address] [place] [address] Consulting Physician INTERNAL MEDICINE 02/11/23 Brit Gonzáles MD [address] [place], [place] [address] Consulting Physician CARDIOVASCULAR DISEASE 12/29/23 documented as of this encounter
--- OUTSIDE RECORDS SUMMARY | 2024-09-03 19:07 | XMS_ITS | Encounter Summary ---
Author Organization [facility] Address [facility]. [place], [place] [address] [place] [id number] Care Team Providers Care Gas Stove Servicer Helper Name Role Phone Megan Infante MD Primary Care Provider [phone] Zaki Ortiz MD Unavailable [phone] Concetta Acevedo MD Unavailable + [phone] Jeff Grace MD Unavailable Brit Gonzáles MD Unavailable Reason for Referral * Imaging (Emergency) - New Request Specialty Diagnoses / Procedures Referred By Yung sequeira Referred To Contact RADIOLOGY Procedures CT HEAD WO CON Corrine Goode MD [address] [place] [address] Phone: tel: fax: Referral ID Status Reason Start Date Expiration Date V isits Requested Visits Authorized [id number] New Request 05/02/2024 05/02/2025 1 1 Reason for Visit * Reason Comments Weakness Weakness, shaky, dif ficulty concentrating Encounter Details Date Type Department Care Team (Late st Contact Info) Description 05/02/2024 1:06 PM CDT - 05/03/2024 3:41 AM CDT Emergency [facility] [address] [place] [address] [place] [address] Corrine Goode MD [address] [place] [address] Weakness (Weakness, shaky, difficulty concentrating) Discharge Disposition: Transfer to Acute Care Hospital Social History Tobacco Use Types Packs/Day Years Used Date Smoking Tobacco: Former Passive Smoke Exposure: Past Smokeless Tobacco: Former Chew Alcohol Use Standard Drinks/Week Comments Yes 0 (1 standard drink = 0.6 oz pur e alcohol) 4 beers per week [facility] Utilities Answer Date Recorded In the past 12 months has [email or web address], or [employer] threatened to shut off services in your [...] declined 02/16/2023 How often do you attend baptism or orthodoxy serv ices? Patient declined 02/16/2023 Do you belong to any clubs o r organizations such as baptism groups, unions, fraternal or athletic groups, or [...] move on to questions 3-9 0 12/01/2021 [facility] - Occupational [...] place to sleep or slept in a snf (including now)? Patient declined 07/12/2023 Sex and [...] Sign Reading Time Taken Comments Blood Pressure 145/94 05/03/2024 3:30 AM CDT Pulse 79 05/03/2024 3:30 AM CDT Temperature 35.8 ??C (96.5 ??F) 05/02/2024 1:16 PM CD T Respiratory Rate 16 05/03/2024 3:30 AM CDT Oxygen Saturation 97% 05/03/2024 3:30 AM CDT Inhaled Oxygen Concentration - - Weight 99.6 kg (219 lb 9.6 oz) 05/02/2024 1:16 P M CDT Height 167.6 cm (5' 6 ) 05/02/2024 1:16 PM CDT Body Mass Index 35.44 05/02/2024 1:16 PM CDT documented in this encounter Functional [...] total) by mouth nightly at bedtime. 03/24/2022 AGUSTÍN COMER 100-62.5-25 MCG/ACT AEROSOL POWDER, BREATH [...] 02/18/2023 4 documented as of this encounter ED Notes * Denisha Jaime RN - 05/03/2024 3:08 AM CDT [facility] contacted for pt transport. * Denisha Jaime RN - 05/03/2024 2:59 AM CDT Attempt 1 to give report, was told to call back in 20 minutes, ok to send for transfer prior to report being given due to distance. * Denisha Jaime RN - 05/03/2024 2:55 AM CDT Pt to be transferred to [facility] [place] [address] Room 929 Bed 1 * Denisha Jaime RN - 05/03/2024 1:59 AM CDT Spoke with Jena [facility] transfer, physician consult complete, pt accepted to [facility] Yoan Newell with Dr. Sharif, will call back when bed available. * Denisha Jaime RN - 05/03/2024 1:03 AM CDT Spoke with Holley at [facility]. No staff availability at this time to cover beds, will be transferred in the morning. * Denisha Jaime RN - 05/03/2024 12:44 AM CDT Spoke with Jena with [facility] transfer center - pt placed on waitlist for cardiac bed. Transfer dx Dysrhythmia & ALICIA. * Palomo Young RN - 05/02/2024 9:34 PM CDT Call made to [facility]. P.t. being added to [facility] waitlist facilities. * Palomo Young RN - 05/02/2024 9:12 PM CDT Call made to [facility] transfer line. Spoke to Joe. No beds available at this time. * Palomo Young RN - 05/02/2024 7:53 PM CDT P.t. now sitting in chair by bedside. * Palomo Young RN - 05/02/2024 5:33 PM CDT Call made to [facility]. Spoke to Boris. Transfer center states they're still waiting on a bed to be available at this time. notified. * Palomo Young RN - 05/02/2024 2:51 PM CDT [facility] transfer called. Spoke to Boris. Their hospitalist is being paged and will call back for moreinformation. * Corrine Goode MD - 05/02/2024 1:30 PM CDT EMERGENCY DEPARTMENT NOTE History and Physical Patient: Obie Sims Date of : 1955 Subjective: A very pleasant 68-year-old male with a past medical history significant for atrial fibrillation, coronary artery disease, aortic stenosis, aortic valve regurgitation, and chronic obstructive pulmonary disease not on home oxygen, presented to the Emergency Department. He reports a few days of weakness, intermittent confusion, and dysarthria. He denies fever, chills, cough, sputum production, orthopnea, paroxysmal nocturnal dyspnea, lightheadedness, dizziness, palpitations, exertional dyspnea, black stool, or blood in stools. He states he has felt weird but cannot elaborate on what he is feeling. He also denies any new medications or changes in medications and reports eating and drinking wi thout difficulty. Additional history from independent historians: n/a History: Past Medical History: Past Medical History: Diagnosis Date ??? Abnormal ankle brachial index (STELLA) ??? Acute on chronic heart failure, unspecified heart failure type (CMS/HCC HHS/HCC) ??? Anxiety ??? Aortic valve stenosis ??? Arthritis ??? Asthma, mild persistent (HHS/HCC) 04/06/2021 ??? Atrial fibrillation (CMS/HCC HHS/HCC) s/p PVI/WACA 10/2015 ??? Bilateral leg pain ??? Carotid disease, bilateral (CMS/HCC) ??? CHF (congestive heart failure) (CMS/HCC HHS/HCC) ??? Claudication (CMS/HCC) ??? COPD (chronic obstructive pulmonary disease) (CMS/HCC HHS/HCC) ??? Coronary artery disease ??? Diabetes mellitus, type II (CMS/HCC HHS/HCC) ??? Edema 04/19/2018 2+ pitting ??? History of blood transfusion ??? Hyperlipidemia ??? Hypertension ??? LV dysfunction ??? 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) ??? 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) ??? Osteoarthritis ??? PAD (peripheral artery disease) (CMS/HCC) ??? Pneumonia ??? Restless leg syndrome ??? S/P aortic valve replacement with bioprosthetic valve 2013 1999, 2013 ??? SOB (shortness of breath) ??? Stroke (CMS/HCC HHS/HCC) ??? Varicose veins of bilateral lower extremities with other complications ??? Weight gain with edema Past Surgical History: Past Surgical History: Procedure Laterality Date ??? APPENDECTOMY ??? CARDIAC VALVE REPLACEMENT 1999 ??? CARDIAC VALVE REPLACEMENT 2013 ??? CARDIOVERSION EXTERNAL 10/01/2015 ??? CARDIOVERSION EXTERNAL 04/14/2012 ??? COLONOSCOPY N/A 03/18/2021 COLONOSCOPY (Incomplete) performed by Kilo Navarro MD at [facility] OR ??? COLONOSCOPY N/A 01/27/2022 COLONOSCOPY WITH COLD SNARE POLYPECTOMY performed by Kilo Navarro MD at [facility] OR ??? HIP ARTHROPLASTY Left ??? KNEE ARTHROPLASTY Bilateral ??? REPAIR ROTATOR CUFF W/ OR W/O ACROMIOPLASTY Left ??? USE NEMO+CARDIOVERSION 03/24/2016 ??? XA A-FIB ABLATION 10/23/2015 PVI/[facility]ACA Family History: Na Family History Problem Relation Name Age of Onset ??? TB Mother Social History: NA Social History Tobacco Use ??? Smoking status: Former Passive exposure: Past ??? Smokeless tobacco: Former Types: Chew Vaping Use ??? Vaping status: Never Used Substance Use Topics ??? Alcohol use: Yes Comment: 4 beers per week ??? Drug use: No Review of Systems: Review of Systems ROS negative except as documented elsewhere in note. Physical Exam: Filed Vitals: 05/02/24 1530 05/02/24 1600 05/02/24 1630 05/02/24 1700 BP: (!) 134/92 (!) 140/77 135/70 139/84 Pulse: 72 74 78 75 Resp: 15 Temp: TempSrc: SpO2: 97% 100% 100% Weight: Height: Nursing notes reviewed Physical Exam PHYSICAL EXAM: - Vitals: Interpreted as normal for this patient. - General: NAD. Well-kept male adult. - Eyes: Appear normal with no scleral icterus. - HENT: Atraumatic. Moist mucous membranes, no pharyngeal erythema, edema or lesions. - Neck: Atraumatic, supple. - Cardiac: Regular rate, regular rhythm, no significant murmurs appreciated. - Respiratory: No respiratory distress, clear lungs bilaterally with no abnormal breath sounds. - Abdomen: Soft. Nontender. Nondistended. No rebound. No guarding. No tenderness over McBurney's point, no tenderness over the liver or spleen, no Zaragoza's sign, no pulsatile abdominal mass. - : No CVAT. - MS: Extremities atraumatic. No edema, no calf tenderness to palpation. - Skin: No exanthems, no cyanosis, no diaphoresis. - Back exam: Atraumatic. - Neurologic: No altered mental status, speech is dysarthric. Gait is within normal limits. No cerebellar deficits. No motor deficits. No sensory deficits. - Psychological: Cooperative and participatory with examination. Results: Pulse Ox: SpO2: 100 % on . No hypoxia, interpreted by me. EKG af @ 60.; nl axis. No st tw changes. Interventions: Medications Administered in ED: Medications dextrose 50 % solution 25 g (25 g Intravenous Given 05/02/24 1516) sodium chloride 0.9% bolus infusion 500 mL (500 mLs Intravenous New Bag 05/02/24 1559) Assessment / Plan / MDM: ED Course as of 05/03/24 0148 WedMay 02, 2024 1406 Pt pco2 53 doubt hypercarbia source of his sympotoms [AIRPLANE DISPATCHER] 1437 Nurse states pt on monitor appeared to have 5 ventricularbeats in a row. The baseline not perfect but appears to be so. Will place pads on patient and try to transfer to another hospital with cardiology [AIRPLANE DISPATCHER] 1440 Pt has alicia with cr up to 2.35. he was also started on levoaquin by wound care. Unsure if this has contributed to it. Also pt is on warfarin so have added pt as levaquin can aslo affect inr. Pt is in the room, n ofurthe ventricular beats. Glucose repeate d50. Will start d10 at this time [AIRPLANE DISPATCHER] 1544 D/w [facility] who accepts. [AIRPLANE DISPATCHER] 2135 Pt takes norco regularly so will give evenin dose [AIRPLANE DISPATCHER] WedMay 03, 2024 0148 Spoke w [place]ra cotta roofer at another ospital who accepts but no beds. [AIRPLANE DISPATCHER] ED Course User Index [AIRPLANE DISPATCHER] Corrine Goode MD ED Diagnosis: No diagnosis found. Disposition: No follow-up provider specified. Discharge Medications: New Prescriptions No medications on file 05/02/24 Corrine Goode MD 05/02/24 [id number] * Felisa Arenas RN - 05/02/2024 1:13 PM CDT To ED per wheelchair from wound center where patient drove himself this morning. Wound care staff report patient has slurred speech and is shaky today. Patient states had trouble concentrating while driving here this morning. Patient says slurred speech comes and goes . Patient stands to scale andED stretcher without difficulty. Bilat leg wounds noted. Denies pain states, I just feel out of it . documented in this encounter Plan of Treatment Upcoming Encounters Date Type Department Care Team (Late st Contact Info) Description 09/25/2024 2:00 PM PANEL ASSEMBLER Appointment [facility] [address] [place] [address] Zayra Powell, CLINICAL RESEARCH MANAGER [address] [place] [address] 10/16/2024 3:30 PM PANEL ASSEMBLER Office Visit [facility] [address] [place] [address] Brit Gonzáles MD [address] [place] [phone] documented as of this encounter Goals Goal Patient Goal Type Associated Problems Recent Progress Patient-Stated? Author Family - family caregiver with be involved in care transitions and discharge planning Lifestyle Karen Diane RN documented as of this encounter Procedures Procedure Name Priority Date/Time Associated Diagnosis Comments POCT GLUCOSE - VALLECILLO DOCKED DEVICE Routine 05/02/2024 9:01 PM CDT POCT GLUCOSE - VALLECILLO DOCKED DEVICE Routine 05/02/2024 5:11 PM CDT POCT GLUCOSE - VALLECILLO DOCKED DEVICE Routine 05/02/2024 2:39 PM CDT DRUG SCREEN RAPID STAT 05/02/2024 2:3 4 PM CDT HC URINALYSIS AUTO W/MICRO STAT 05/02/2024 2:34 PM CDT XR CHEST PORTABLE STAT 05/02/2024 2:[address] HEAD WO CON STAT 05/02/2024 2:16 PM CDT ECG 12-LEAD Routine 05/02/2024 1:53 PM CDT BLOOD GAS, ARTERIAL LAB STAT 05/02/20 24 1:50 PM CDT POCT GLUCOSE - VALLECILLO DOCKED DEVICE Routine 05/02/2024 1:46 PM CDT PRO-BRAIN NATRIURETIC PEPTIDE STAT 05/02/2024 1:37 PM CDT PARTIAL THROMBOPLASTIN TIME,PTT STAT 05/02/2024 1:37 PM CDT PROTHROMBIN TIME, VENOUS STAT 05/02/2024 1:37 PM CDT COMPREHENSIVE METABOLIC PANEL STAT 05/02/2024 1:37 PM CDT CBC W/DIFF AUTOMATED STAT 05/02/2024 1:37 PM CDT TROPONIN, QUANT STAT 05/02/2024 1:37 PM CDT THYROID STIM HORMONE TSH STAT 05/02/2024 1:37 PM CDT MAGNESIUM STAT 05/02/2024 1:37 PM CDT ETHANOL STAT 05/02/2024 1:37 PM CDT documented in this encounter Results * POCT glucose (05/02/2024 9:01 PM CDT) GLUCOSE POC 94 70 - 99 MG/DL 05/02/2024 9:[address] [facility] 05/02/2024 9:01 PM CDT us Corrine Goode MD POCT ORDERABLES - DEVICE Final Result Performing Organization Address City/[facility]/ZIP Co de Phone Number [facility] [address] [place] [address], * (ABNORMAL) POCT glucose (05/02/2024 5:11 PM CDT) GLUCOSE POC 121(H) 70 - 99 MG/DL 05/02/2024 5:[address] [facility] 05/02/2024 5:11 PM CDT us Corrine Goode MD POCT ORDERABLES - DEVICE Final Result [facility] [address] [place] [address], * (ABNORMAL) POCT glucose (05/02/2024 2:39 PM CDT) GLUCOSE POC 62(L) 70 - 99 MG/DL 05/02/2024 2:[address] [facility] 05/02/2024 2:39 PM CDT us Corrine Goode MD POCT ORDERABLES - DEVICE Final Result [facility] [address] [place] [address], * (ABNORMAL) DRUG SCREEN RAPID (05/02/2024 2:34 PM CDT) CANNABINOIDS SCREEN (U) NEGATIVE NEGATIVE 05/02/2024 3:[address] [facility] PHENCYCLIDINE PCP (U) NEGATIVE NEGATIVE 05/02/2024 3:[address] [facility] COCAINE METABOLITES (U) NEGATIVE NEGATIVE 05/02/2024 3:[address] [facility] METHAMPHETAMINE SCREEN (U) NEGATIVE NEGATIVE 05/02/2024 3:[address] [facility] OPIATE SCREEN (U) POSITIVE(A) NEGATIVE 2023 3:[address] [facility] AMPHETAMINE SCREEN (U) NEGATIVE NEGATIVE 05/02/2024 3:[address] [facility] BENZODIAZEPINES SCREEN (U) NEGATIVE NEGATIVE 05/02/2024 3:[address] [facility] TRICYCLIC ANTIDEPRESSANT SCREEN (U) NEGATIVE NEGATIVE 05/02/2024 3:[address] [facility] METHADONE (U) NEGATIVE NEGATIVE 05/02/2024 3:[address] [facility] BARBITURATES SCREEN (U) NEGATIVE NEGATIVE 05/02/2024 3:[address] [facility] OXYCODONE SCREEN (U) NEGATIVE NEGATIVE 05/02/2024 3:[address] [facility] URINE TOX COMMENT THIS TEST METHODOLOGY IS DESIGNED AND OFFERED A RAPID TURNAROUND, QUALITATIVE SCREENING PROCEDURE TO AID IN THE IMMEDIATE MEDICAL ASSESSMENT OF PATIENTS SUSPECTED OF SUBSTANCE ABUSE. 05/02/2024 2:[address] [facility] Comment: CLINICAL CONSIDERATION AND PROFESSIONAL JUDGMENT MUST BE APPLIED TO ANY DRUG OF ABUSE TEST RESULT, BOTH POSITIVE AND NEGATIVE. CONFIRMATORY QUANTITATIVE RESULTS ARE AVAILABLE THROUGH OUR REFERENCE LABORATORY. URINE SPECIMEN / Unknown 05/02/2024 2:34 PM CDT Corrine Goode MD URINE ORDERABLES Final Result [facility] [address] [place] [address], * URINALYSIS (05/02/2024 2:34 PM CDT) COLOR (U) YELLOW 05/02/2024 2:[address] [facility] TRANSPARENCY CLEAR 05/02/2024 2:[address] [facility] SPECIFIC GRAVITY (U) 1.015 1.000 - 1.025 05/02/2024 2:[address] [facility] U PH 5.5 5.0 - 8.0 05/02/2024 2:[address] [facility] LEUKOCYTES (U) NEGATIVE NEGATIVE 05/02/2024 2:[address] [facility] NITRITES NEGATIVE NEGATIVE 05/02/2024 2:[address] [facility] PROTEIN RANDOM (U) NEGATIVE NEGATIVE 05/02/2024 2:[address] [facility] GLUCOSE (U) NEGATIVE NEGATIVE 05/02/2024 2:[address] [facility] KETONES MG/DL (U) NEGATIVE NEGATIVE 05/02/2024 2:[address] [facility] UROBILINOGEN 0.2 <1.0 EU/DL 05/02/2024 2:[address] [facility] BILIRUBIN (U) NEGATIVE NEGATIVE 05/02/2024 2:[address] [facility] BLOOD (U) NEGATIVE NEGATIVE 05/02/2024 2:[address] [facility] WBC/HPF 0-5 0 - 5 /HPF 05/02/2024 2:[address] [facility] EPI/LPF OCCASIONAL /LPF 05/02/2024 2:[address] [facility] BACTERIA (U) TRACE /HPF 05/02/2024 2:[address] [facility] OTHER CASTS (U) HYALINE /LPF 2:[address] [facility] Comment:5-10 URINE SPECIMEN OBTAINED BY CLEAN CATCH PROCEDURE / Unknown 05/02/2024 2:34 PM CDT us Corrine Goode MD URINE ORDERABLES Final Result [facility] [place] [address], * XR CHEST PORTABLE (05/02/2024 2:26 PM CDT) Anatomical Region Laterality Modality Chest Radiographic Stephie ging 05/02/2024 2:31 PM CDT Impressions 05/02/2024 2:36 PM CDT IMPRESSION: 1. Probable mild interstitial edema. No focal infiltrates. 2. Stable cardiomegaly. Ordered By: CORRINE GOODE Interpreted By: Nicko Portillo MD, 05/02/2024 2:31 PM Narrative 05/02/2024 2:[address] [place] [address] Examination: Portable chest. Exam time: 1343 hours. Clinical history: Cough. Comparison: 07/12/2023. Technique: ??AP ??upright view. Findings: Allowing for differences in projection and rotation, the cardiomediastinal silhouette is stable. The heart remains enlarged. Changes from median sternotomy are again noted. Pulmonary vascularity is not clearly abnormal. There is mild perivascular haziness and interstitial prominence suggesting interstitial edema. No confluent infiltrates or effusions are identified. The visualized bony thorax is stable. Procedure Note Nicko Portillo MD - 05/02/[address] [place] [address] Examination: Portable chest. Exam time: 1343 hours. Clinical history: Cough. Comparison: 07/12/2023. Technique: AP upright view. Findings: Allowing for differences in projection and rotation, thecardiomediastinal silhouette is stable. The heart remains enlarged.Changes from median sternotomy are again noted. Pulmonary vascularity isnot clearly abnormal. There is mild perivascular haziness and interstitialprominence suggesting interstitial edema. No confluent infiltrates oreffusions are identified. The visualized bony thorax is stable. IMPRESSION: 1. Probable mild interstitial edema. No focal infiltrates. 2. Stable cardiomegaly. Ordered By: CORRINE GOODE Interpreted By: Nicko Portillo MD, 05/02/2024 2:31 PM Corrine Goode MD GENERAL IMAGING Final Result * CT HEAD WO CON (05/02/2024 2:16 PM CDT) Anatomical Region Laterality Modality Head Computed Tomogra phy 05/02/2024 2:22 PM CDT Impressions 05/02/2024 2:26 PM CDT IMPRESSION: 1. No definite CT evidence of acute intracranial abnormality. 2. Small vessel disease, old infarcts/encephalomalacia, and volume loss. Ordered By: CORRINE GOODE Interpreted By: Yimi Li MD, 05/02/2024 2:22 PM Narrative 05/02/2024 2:[address] [place] [address] DATE: 05/02/2024 1:52 PM EXAMINATION: CT of the head CLINICAL HISTORY: Slurred speech. COMPARISON: Head CT and brain MRI exams 02/06/2023 TECHNIQUE: CT examination of the head without contrast ??was performed. Axial and multiplanar images obtained. A dose lowering technique was used for this procedure, which may include, but is not limited to, dose reduction technique, automated exposure control, the use of iterative reconstruction, and ALARA (As Low As Reasonably Achievable) / Image Gently techniques. FINDINGS: No acute intracranial hemorrhage, extra-axial collections, intracranial mass effect, or midline shift. There is stable encephalomalacia involving the left temporal/insular parenchyma, possibly from prior infarct versus other remote insult. Patchy foci of hypodensity noted in the hemispheric white matter, likely due to small vessel disease. Atherosclerotic vascular calcifications. Scattered old lacunar infarcts elsewhere. No definite CT evidence of acute territorial infarction. Incidentally noted infundibular lipoma. Mild volume loss with enlargement of the ventricles and extra-axial/subarachnoid spaces. Calvarium unremarkable. Mastoid air cells clear. Paranasal sinuses clear. Visualized orbits unremarkable. Procedure Note Yimi Li MD - 05/02/2024 [place] [address] [facility] [place] [address] DATE: 05/02/2024 1:52 PM EXAMINATION: CT of the head CLINICAL HISTORY: Slurred speech. COMPARISON: Head CT and brain MRI exams 02/06/2023 TECHNIQUE: CT examination of the head without contrast was performed.Axial and multiplanar images obtained. A dose lowering technique was used for this procedure, which may include,but is not limited to, dose reduction technique, automated exposurecontrol, the use of iterative reconstruction, and ALARA (As Low AsReasonably Achievable) / Image Gently techniques. FINDINGS: No acute intracranial hemorrhage, extra-axial collections, intracranialmass effect, or midline shift. There is stable encephalomalacia involvingthe left temporal/insular parenchyma, possibly from prior infarct versusother remote insult. Patchy foci of hypodensity noted in the hemisphericwhite matter, likely due to small vessel disease. Atherosclerotic vascularcalcifications. Scattered old lacunar infarcts elsewhere. No definite CTevidence of acute territorial infarction. Incidentally noted infundibularlipoma. Mild volume loss with enlargement of the ventricles andextra-axial/subarachnoid spaces. Calvarium unremarkable. Mastoid air cellsclear. Paranasal sinuses clear. Visualized orbits unremarkable. IMPRESSION: 1. No definite CT evidence of acute intracranial abnormality. 2. Small vessel disease, old infarcts/encephalomalacia, and volume loss. Ordered By: CORRINE GOODE Interpreted By: Yimi Li MD, 05/02/2024 2:22 PM us Corrine Goode MD CT Final Result * ECG 12 lead (05/02/2024 1:53 PM CDT) 05/02/2024 1:53 PM CDT Narrative [facility] - 05/02/2024 8:27 PM CDT ? [facility] ?[address] [place] [address] [place] ??[address] ? Test Date: ?2024-05-02 Pat Name: ? OBIE SIMS ?Department: ?? 3 ? Room: ? EXAM 505 Gender: ? Male ? Quality Engineer: ?? : ?[id number] ? Requested By: CORRINE GOODE Order Number: [id number] ? Reading MD: ?? Karolina eMieru ? Measurements Intervals ?[place] ? Rate: ? 60 ? P: ? WI: ? 0 ?QRS: ?122 QRSD: ? 145 ?T: ?83 QT: ? 465 ? QTc: ?465 ? Interpretive Statements ATRIAL FIBRILLATION RIGHT AXIS DEVIATION INTRAVENTRICULAR CONDUCTION DELAY Procedure Note Karolina Parekh MD - 05/02/[address] [place] [address] Test Date: 2024-05-02 Pat Name: OBIE BETHANY Department: 3 Room: EXAM 505 Gender: Male Quality Engineer: : [id number] Requested By: CORRINE GOODE Order Number: [id number] Sage MD: Martin Measurements Intervals [place] Rate: 60 P: WI: 0 QRS: 122 QRSD: 145 T: 83 QT: 465 QTc: 465 Interpretive Statements ATRIAL FIBRILLATION RIGHT AXIS DEVIATION INTRAVENTRICULAR CONDUCTION DELAY us Corrine Goode MD ECG ORDERABLES Final Result [facility] * (ABNORMAL) ARTERIAL BLOOD GAS (05/02/2024 1:50 PM CDT) PH ARTERIAL 7.31(L) 7.35 - 7.45 05/02/2024 2:[address] [facility] PCO2 54.0(H) 35 - 45 MMHG 05/02/2024 2:[address] [facility] PO2 33.0(LL) 80 - 100 MMHG 05/02/2024 2:[address] [facility] Comment: CALLED TO ELVIA WALLACE RN ER ON 05.02.24 AT 1415 BY READ BACK AND VERIFIED TOTAL CO2 ARTERIAL 28.9(H) 19.0 - 24.0 MMOL/L 05/02/2024 2:[address] [facility] [facility] BASE DEFICIT 0.0 0 - 2 MMOL/L 05/02/2024 2:[address] [facility] O2 SATURATION 57(L) 94.0 - 98.0 % 05/02/2024 2:[address] [facility] BICARB ARTERIAL 27.2 21.0 - 28.0 MMOL/L 05/02/2024 2:[address] [facility] HEATHER TEST AOK 05/02/2024 1:[address] [facility] O2 ADMIN ARTERIAL ROOM AIR 05/02/2024 1:[address] [facility] DRAW SITE ARTERIAL LRA 05/02/2024 1:[address] [facility] 05/02/2024 1:50 PM CDT us Corrine Goode MD LABORATORY Final Result [facility] [address] [place] [address], * (ABNORMAL) POCT glucose (05/02/2024 1:46 PM CDT) GLUCOSE POC 63(L) 70 - 99 MG/DL 05/02/2024 1:[address] [facility] 05/02/2024 1:46 PM CDT us Corrine Goode MD POCT ORDERABLES - DEVICE Final Result Performing Organization Address [facility] Co de Phone Number [facility] [address] [place] [address], * (ABNORMAL) PARTIAL THROMBOPLASTIN TIME,PTT (05/02/2024 1:37 PM CDT) PTT 59.9(H) 25.1 - 36.5 SEC 05/02/2024 2:[address] [facility] Comment:THERAPEUTIC RANGE: 4 6.2-77.0 SEC 05/02/2024 1:37 PM CDT us Corrine Goode MD LABORATORY Final Result Performing Organization Address [facility] Co de Phone Number [facility] [address] [place] [address], [place] [phone] * (ABNORMAL) PROTIME/INR, VENOUS (05/02/2024 1:37 PM CDT) PROTIME 58.7(H) 9.4 - 12.5 SEC 05/02/2024 2:[address] [facility] INR 5.2(HH) 0.8 - 1.0 05/02/2024 2:[address] [facility] Comment: CRITICAL VALUE CALLED TO JENNIFER MENDIETA ER 05/02/24 1448 READ BACK AND VERIFIED 05/02/2024 1:37 PM CDT us Corrine Goode MD LABORATORY Final Result Performing Organization Address [facility]/ZIP Co de Phone Number [facility] [address] [place] [address], * ETHANOL (05/02/2024 1:37 PM CDT) ALCOHOL S/P/B <0.003 <0.003 G/DL 05/02/2024 2:[address] [facility] 05/02/2024 1:37 PM CDT us Corrine Goode MD LABORATORY Final Result [facility] [address] [place] [address], [place] [phone] * (ABNORMAL) PRO-BRAIN NATRIURETIC PEPTIDE (05/02/2024 1:37 PM CDT) PRO-B TYPE NATRIURETIC PEPTIDE 670(H) <125 PG/ML 05/02/2024 2:[address] [facility] Comment: CUT POINTS ESTABLISHED BY [...] OF 89% AND 72% FOR ACUTE CHF. 05/02/2024 1:37 PM CDT us Corrine Goode MD LABORATORY Final Result [facility] [address] [place] [address], [place] [phone] * (ABNORMAL) THYROID STIM HORMONE, TSH (05/02/2024 1:37 PM CDT) TSH 6.516(H) 0.358 - 3.740 uIU/ML 05/02/2024 2:[address] [facility] Comment: ASSAY PERFORMED BY CHEMILUMINESCENT IMMUNOASSAY METHODOLOGY USING SIEMENS DIMENSION REAGENT. PATIENT RESULTS DETERMINED BY ASSAYS FROM DIFFERENT MANUFACTURERS AND/OR BY DIFFERENT METHODS MAY NOT BE COMPARABLE. 05/02/2024 1:37 PM CDT us Corrine Goode MD LABORATORY Final Result Performing Organization Address [facility] Co de Phone Number [facility] [address] [place] [address], * MAGNESIUM (05/02/2024 1:37 PM CDT) Pathologist [facility] MAGNESIUM 2.2 1.8 - 2.4 MG/DL 05/02/2024 2:[address] [facility] 05/02/2024 1:37 PM CDT us Corrine Goode MD LABORATORY Final Result Performing Organization Address [facility] Co de Phone Number [facility] [address] [place] [address], * TROPONIN, QUANT (05/02/2024 1:37 PM CDT) Pathologist [facility] TROPONIN I HIGH SENSITIVITY 30 0 - 76 ng/L 05/02/2024 2:[address] [facility] 05/02/2024 1:37 PM CDT us Corrine Goode MD LABORATORY Final Result Performing Organization Address [facility] Co de Phone Number [facility] [address] [place] [address], * (ABNORMAL) COMPREHENSIVE METABOLIC PANEL (05/02/2024 1:37 PM CDT) SODIUM S/P/B 137 136 - 145 MMOL/L 05/02/2024 2:[address] [facility] POTASSIUM S/P/B 5.2(H) 3.5 - 5.1 MMOL/L 05/02/2024 2:[address] [facility] CHLORIDE S/P/B 103 98 - 107 MMOL/L 05/02/2024 2:[address] [facility] CO2 28.0 21.0 - 32.0 MMOL/L 05/02/2024 2:17 PM [facility] GLUCOSE 60(L) 70 - 99 MG/DL 05/02/2024 2:17 PM [facility] Comment: FASTING GLUCOSE 100 TO 125 MG/DL IS CONSISTENT WITH IMPAIRED FASTING GLUCOSE. FASTING GLUCOSE >125 MG/DL IS CONSISTENT WITH DIABETES. RANDOM GLUCOSE >200 MG/DL WITH HYPERGLYCEMIC SYMPTOMS IS CONSISTENT WITH DIABETES. PER ADA GUIDELINES BUN 56(H) 6 - 24 MG/DL 05/02/2024 2:[address] [facility] CREATININE S/P/B 2.35(H) 0.70 - 1.30 MG/DL 05/02/2024 2:17 PM [facility] CALCIUM S/P/B 8.9 8.4 - 10.5 MG/DL 05/02/2024 2:17 PM [facility] BILIRUBIN TOTAL S/P/B 0.5 0.2 - 1.0 MG/DL 05/02/2024 2:17 PM [facility] Comment: THIS ASSAY IS NOT RECOMMENDED FOR PATIENTS UNDERGOING TREATMENT WITH ELTROMBOPAG DUE TO THE POTENTIAL FOR FALSELY ELEVATED RESULTS. ALKALINE PHOSPHATASE S/P/B 144(H) 45 - 115 U/L 05/02/2024 2:17 PM [facility] AST 20 15 - 37 U/L 05/02/2024 2:17 PM [facility] ALT 19 16 - 63 U/L 05/02/2024 2:17 PM [facility] TOTAL PROTEIN S/P/B 8.0 6.4 - 8.2 G/DL 05/02/2024 2:17 PM [facility] ALBUMIN S/P/B 3.4 3.4 - 5.0 G/DL 05/02/2024 2:17 PM [facility] ANION GAP 6.0 5.0 - 15.0 MMOL/L 05/02/2024 2:[address] [facility] OSMOLALITY (CALC) 297 MOSM/KG 024 2:[address] [facility] Comment:REFERENCE RANGE NOT ESTABLISHED GFR ESTIMATE 29(L) >89 ML/MIN/1. 73 M2 05/02/2024 2:[address] [facility] GFR NOTES GFR REFERENCE S: 05/02/2024 2:[address] [facility] Comment: THE ESTIMATED GFR IS [...] ml/min/1.73 m2 G5,KIDNEY FAILURE: <15 ml/min/1.73 m2 05/02/2024 1:37 PM CDT Corrine Goode MD LABORATORY Final Result [facility] [address] [place] [address], * (ABNORMAL) CBC W/DIFF AUTOMATED (05/02/2024 1:37 PM CDT) WBC 10.28 4.00 - 10.80 x10'3/uL 05/02/2024 1:[address] [facility] RBC 4.59 4.50 - 6.10 x10'6/uL 05/02/2024 1:[address] [facility] HGB 13.1 13.0 - 18.0 G/DL 05/02/2024 1:[address] [facility] HCT 41.7 37.0 - 52.0 % 05/02/2024 1:[address] [facility] MCV 90.8 78.0 - 100.0 FL 05/02/2024 1:[address] [facility] MCH 28.5 27.0 - 31.0 PG 05/02/2024 1:[address] [facility] MCHC 31.4(L) 33.0 - 36.0 G/DL 05/02/2024 1:[address] [facility] RDW 17.0(H) 11.5 - 14.5 % 05/02/2024 1:[address] [facility] PLT 135(L) 150 - 350 x10'3/uL 05/02/2024 1:[address] [facility] MPV 11.8(H) 7.4 - 10.4 FL 05/02/2024 1:[address] [facility] CBC COMMENT NORMAL REFERENCE RANGE NOT ESTABLISHED FOR THE PROPORTIONAL LEUKOCYTE DIFFERENTIAL. 05/02/2024 1:[address] [facility] NEUTROPHILS % 77.6 % 05/02/2024 2:[address] [facility] LYMPHOCYTES % 9.3 % 05/02/2024 2:[address] [facility] MONOCYTES % 8.7 % 05/02/2024 2:[address] [facility] EOSINOPHILS % 3.6 % 05/02/2024 2:[address] [facility] BASOPHILS % 0.4 % 05/02/2024 2:[address] [facility] IMMATURE GRANS % 0.4 % 05/02/20 24 2:[address] [facility] NRBC % 0.0 % 05/02/2024 2:[address] [facility] ABS. NEUTROPHILS 7.98 1.60 - 8.30 x10'3/uL 05/02/2024 2:[address] [facility] ABS. LYMPHOCYTES 0.96 0.80 - 4.70 x10'3/uL 05/02/2024 2:[address] [facility] ABS. MONOCYTES 0.89 0.00 - 1.50 x10'3/uL 05/02/2024 2:[address] [facility] ABS. EOSINOPHILS 0.37 0.00 - 0.40 x10'3/uL 05/02/2024 2:[address] [facility] ABS. BASOPHILS 0.04 0.00 - 0.20 x10'3/uL 05/02/2024 2:[address] [facility] ABS. IMMATURE GRANULOCYTES 0.04(H) 0.00 - 0.03 x10'3/uL 05/02/2024 2:[address] [facility] ABS. NUCLEATED RBC'S 0.00 0.00 - 0.01 x10'3/uL 05/02/2024 2:[address] [facility] PLT MORPH. DECREASED 05/02/2024 2:[address] [facility] RBC MORPHOLOGY NORMAL 05/02/2024 2:[address] [facility] 05/02/2024 1:37 PM CDT Corrine Goode MD LABORATORY Final Result [facility] [address] [place] [address], documented in this encounter Visit Diagnoses Not on filedocumented in this encounter Administered Medications Inactive Administered Medications - up to 3 most recent administrations Medication Order MAR Action Action Date Dose Rate Site dextrose 50 % solution 25 g 25 g, Intravenous, Once, 1 dose, On Wed05/02/24 at 1500, Administration rate 3 mL/min. Given 05/02/2024 3:16 PM CDT 25 g HYDROcodone-acetaminophen (NORCO) 5-325 MG tablet 1 tablet 1 tablet, Oral, Once, 1 dose, On Wed05/02/24 at 1815, Maximum dose of acetaminophen is 4000 mg from all sources in 24 hours. Given 05/02/2024 6:21 PM CDT 1 tablet HYDROcodone-acetaminophen (NORCO) 5-325 MG tablet 1 tablet 1 tablet, Oral, Once, 1 dose, On Wed05/02/24 at 2145, Maximum dose of acetaminophen is 4000 mg from all sources in 24 hours. Given 05/02/2024 10:03 PM CDT 1 tablet sodium chloride 0.9% bolus infusion 500 mL 500 mL, Intravenous, Administer over 60 Minutes, Bolus (Once), 1 dose, On Wed05/02/24 at 1545 New Bag 05/02/2024 3:59 PM CDT 500 mLs 500 mL/hr documented in this encounter Active and Recently Administered Medications Times are shown in CDT. Scheduled Medication Order 05/01/2024 05/02/2024 05/03/2024 dextrose 50 % solution 25 g (COMPLETED) 25 g, Intravenous, Once, 1 dose, On Wed05/02/24 at 1500, Administration rate 3 mL/min. 1516 (Given - Provider: Palomo Young RN) HYDROcodone-acetaminophen (NORCO) 5-325 MG tablet 1 tablet (COMPLETED) 1 tablet, Oral, Once, 1 dose, On Wed05/02/24 at 1815, Maximum dose of acetaminophen is 4000 mg from all sources in 24 hours. 182 (Given - Provider: Palomo Young RN) HYDROcodone-acetaminophen (NORCO) 5-325 MG tablet 1 tablet (COMPLETED) 1 tablet, Oral, Once, 1 dose, On Wed05/02/24 at 2145, Maximum dose of acetaminophen is 4000 mg from all sources in 24 hours. 220 (Given - Provider: Palomo Young RN) sodium chloride 0.9% bolus infusion 500 mL (COMPLETED) 500 mL, Intravenous, Administer over 60 Minutes, Bolus (Once), 1 dose, On Wed05/02/24 at 1545 1559 (New Bag - Provider: Jennifer Mendieta RN)1805 (Infusion Stop Time - Provider: Palomo Young RN) documented in this encounter Additional Health Concerns Assessment Noted Time PHQ-9 Depression Total Score: 0 12/02/19 22 1:18 PM CDT documented as of this encounter Care Teams Gas Stove Servicer Helper Relationship Specialty Start Date End Date Megan Infante MD [address] [place] [address] [place] [phone] PCP - General FAMILY PRACTICE 04/06/16 Zaki Ortiz MD [address] [facility] [place] [address] Consulting Physician PULMONARY DISEASE 07/12/19 Concetta Acevedo MD [address] [place] [address] Surgeon NEUROLOGICAL SURGERY 12/16/22 Jeff Grace MD [address] [place] [address] Consulting Physician INTERNAL MEDICINE 02/11/23 Brit Gonzáles MD [address] [place] [address] Consulting Physician CARDIOVASCULAR DISEASE 12/29/23 documented as of this encounter
--- OUTSIDE RECORDS SUMMARY | 2024-09-03 19:07 | XMS_ITS | Encounter Summary ---
Author Organization [facility] Address Critical access hospital[address] [place] [address] [place] [address] Care Team Providers Care Lens Marker Name Role Phone Megan Infante MD Primary Care Provider [phone] Zaki Ortiz MD Unavailable [phone] Concetta Acevedo MD Unavailable + [phone] Jeff Grace MD Unavailable Brit Gonzáles MD Unavailable Encounter Details Date Type Department Care Team (Late st Contact Info) Description 05/09/2024 12:50 PM CDT - 05/09/2024 1:37 PM [address] Hospital Encounter [facility] [address] [place] [address] Zayra Powell, [facility] [address] [place] [address] Discharge Disposition: Home or Self Care (Routine Discharge) Social History Tobacco Use Types Packs/Day Years Used Date Smoking Tobacco: Former Passive Smoke Exposure: Past Smokeless Tobacco: Former Chew Alcohol Use Standard Drinks/Week Comments Yes 0 (1 standard drink = 0.6 oz pur e alcohol) 4 beers per week [facility] Utilities Answer Date Recorded In the past 12 months has e electric, gas, oil, or water [employer] threatened to shut off services in your [...] How often do you attend orthodox or advent serv ices? Patient declined 02/16/2023 Do you [...] move on to questions 3-9 0 12/01/2021 [facility] Occupational Stress Questionnaire [...] Progress Notes * Mary Moore RN - 05/09/2024 1:00 PM CDTEncounter addended by: Mary Moore RN on: 05/09/2024 2:20 PM Actions taken: MAR administration accepted documented in this encounter Plan of Treatment Upcoming Encounters Date Type Department Care Team (Late st Contact Info) Description 09/25/2024 2:00 PM SCRUB TECHNICIAN Appointment [facility] [address] [place] [address] Zayra Powell, LIFT TEAM TECHNICIAN [address] [place] [address] 10/16/2024 3:30 PM SCRUB TECHNICIAN Office Visit [facility] [address] [place] [phone] Brit Gonzáles MD [address] [place] [address] documented as of this encounter Goals Goal Patient Goal Type Associated Problems Recent Progress Patient-Stated? Author Family - family caregiver with be involved in care transitions and discharge planning Lifestyle No Karen Quezada RN documented as of this encounter Results * (ABNORMAL) BASIC METABOLIC PANEL (05/09/2024 1:46 PM CDT) SODIUM S/P/B 137 136 - 145 MMOL/L 05/09/2024 2:30 PM CDT [facility] POTASSIUM S/P/B 4.8 3.5 - 5.1 MMOL/L 05/09/2024 2:30 PM CDT [facility] CHLORIDE S/P/B 101 98 - 107 MMOL/L 05/09/2024 2:30 PM CDT [facility] CO2 24.3 21.0 - 32.0 MMOL/L 05/09/2024 2:30 PM CDT [facility] GLUCOSE 97 70 - 99 MG/DL 05/09/2024 2:30 PM CDT [facility] Comment: FASTING GLUCOSE 100 TO 125 MG/DL IS CONSISTENT WITH IMPAIRED FASTING GLUCOSE. FASTING GLUCOSE >125 MG/DL IS CONSISTENT WITH DIABETES. RANDOM GLUCOSE >200 MG/DL WITH HYPERGLYCEMIC SYMPTOMS IS CONSISTENT WITH DIABETES. PER ADA GUIDELINES BUN 56(H) 6 - 24 MG/DL 05/09/2024 2:30 PM CDT [facility] CREATININE S/P/B 2.16(H) 0.70 - 1.30 MG/DL 05/09/2024 2:30 PM CDT [facility] CALCIUM S/P/B 9.0 8.4 - 10.5 MG/DL 05/09/2024 2:30 PM CDT [facility] ANION GAP 11.7 5.0 - 15.0 MMOL/L 05/09/2024 2:30 PM CDT [facility] OSMOLALITY (CALC) 299 MOSM/KG 024 2:30 PM CDT [facility] Comment:REFERENCE RANGE NOT ESTABLISHED GFR ESTIMATE 32(L) >89 ML/MIN/1. 73 M2 05/09/2024 2:30 PM CDT [facility] GFR NOTES GFR REFERENCE S: 05/09/2024 2:30 PM CDT [facility] Comment: THE ESTIMATED GFR IS [...] ml/min/1.73 m2 G5,KIDNEY FAILURE: <15 ml/min/1.73 m2 05/09/2024 1:46 PM CDT Zayra Powell [facility] Final Result [facility] [address] [place] [address], documented in this encounter Visit Diagnoses Diagnosis Elevated serum creatinine- Primary Other nonspecific findings on examination of blood Non-pressure chronic ulcer of left calf limited to breakdown of skin ([facility]/HCC HHS/HCC) 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 breakdown of skin ([facility]/HCC HHS/HCC) documented in this encounter Administered Medications Inactive Administered Medications - up to 3 most recent administrations Medication Order MAR Action Action Date Dose Rate Site lidocaine 2 % URO-JET jelly Topical, Once, 1 dose, On Wed05/09/24 at 1330Indications: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),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 breakdown of skin ([facility]/HCC HHS/HCC) Given 05/09/2024 1:10 PM CDT documented in this encounter Additional Health Concerns Assessment Noted Time PHQ-9 Depression Total Score: 0 12/02/19 22 1:18 PM CDT documented as of this encounter Care Teams Lens Marker Relationship Specialty Start Date End Date Megan Infante MD [address] [place] [address] PCP - General FAMILY PRACTICE 04/06/16 Zaki Ortiz MD [address] [place] [address] Consulting Physician PULMONARY DISEASE 07/12/19 Concetta Acevedo MD [address] [place] [address] Surgeon NEUROLOGICAL SURGERY 12/16/22 Jeff Grace MD [address] [place] [phone] Consulting Physician INTERNAL MEDICINE 02/11/23 Brit Gonzáles MD [address] [place], [place] [phone] Consulting Physician CARDIOVASCULAR DISEASE 12/29/23 documented as of this encounter
--- OUTSIDE RECORDS SUMMARY | 2024-09-03 19:07 | XMS_ITS | Encounter Summary ---
Author Organization [facility] Address [facility] [place] [address] [place] [address] Care Team Providers Care Chief Technologist Name Role Phone Megan Infante MD Primary Care Provider [phone] Zaki Ortiz MD Unavailable [phone] Concetta Acevedo MD Unavailable + [phone] Jeff Grace MD Unavailable Brit Gonzáles MD Unavailable Encounter Details Date Type Department Care Team (Late st Contact Info) Description 04/27/2024 Orders Only [facility] [address] [place] [phone] Zayra Powell, FOXING PAINTER [address] [place] [address] Social History Tobacco Use Types Packs/Day Years Used Date Smoking Tobacco: Former Passive Smoke Exposure: Past Smokeless Tobacco: Former Chew Alcohol Use Standard Drinks/Week Comments Yes 0 (1 standard drink = 0.6 oz pur e alcohol) 4 beers per week [facility] Utilities Answer Date Recorded In the past 12 months has [employer], gas, oil, or water [employer] threatened to shut off services in your [...] declined 02/16/2023 How often do you attend yarsani or yazidism serv ices? Patient declined 02/16/2023 Do you belong to any clubs o r organizations such as yarsani groups, unions, fraternal or athletic groups, or [...] Assessment Author Status No 07/12/2023 6:58 PM PEDIATRIC OCCUPATIONAL THERAPIST Liliana Gutierrez RN Active documented as of this encounter Mental Status * Because of a physical, mental, or emotional condition, do you have serious difficulty concentrating, remembering, or making decisions? Answer Entry Date Author Status No 07/12/2023 6:58 PM PEDIATRIC OCCUPATIONAL THERAPIST Liliana Gutierrez RN Active documented in this encounter Plan of Treatment Upcoming Encounters Date Type Department Care Team (Late st Contact Info) Description 09/25/2024 2:00 PM PEDIATRIC OCCUPATIONAL THERAPIST Appointment [facility] [address] [facility] [place] [address] Zayra Powell, FOXING PAINTER [address] [place] [address] 10/16/2024 3:30 PM PEDIATRIC OCCUPATIONAL THERAPIST Office Visit [facility] [address] [facility] [place] [address] Brit Gonzáles MD [address] [place] [address] documented as of this encounter Goals Goal Patient Goal Type Associated Problems Recent Progress Patient-Stated? Author Family - family caregiver with be involved in care transitions and discharge planning Lifestyle No Karen Quezada RN documented as of this encounter Results * (ABNORMAL) BASIC METABOLIC PANEL (04/27/2024 2:55 PM CDT) SODIUM S/P/B 138 136 - 145 MMOL/L 04/27/2024 3:13 PM CDT [facility] POTASSIUM S/P/B 4.6 3.5 - 5.1 MMOL/L 04/27/2024 3:13 PM CDT [facility] CHLORIDE S/P/B 103 98 - 107 MMOL/L 04/27/2024 3:13 PM CDT [facility] CO2 32.7(H) 21.0 - 32.0 MMOL/L 04/27/2024 3:13 PM CDT [facility] GLUCOSE 114(H) 70 - 99 MG/DL 04/27/2024 3:13 PM T [facility] Comment: FASTING GLUCOSE 100 TO 125 MG/DL IS CONSISTENT WITH IMPAIRED FASTING GLUCOSE. FASTING GLUCOSE >125 MG/DL IS CONSISTENT WITH DIABETES. RANDOM GLUCOSE >200 MG/DL WITH HYPERGLYCEMIC SYMPTOMS IS CONSISTENT WITH DIABETES. PER ADA GUIDELINES BUN 43(H) 6 - 24 MG/DL 04/27/2024 3:13 PM CDT [facility] CREATININE S/P/B 1.65(H) 0.70 - 1.30 MG/DL 04/27/2024 3:13 PM CDT [facility] CALCIUM S/P/B 9.2 8.4 - 10.5 MG/DL 04/27/2024 3:13 PM T [facility] ANION GAP 2.3(L) 5.0 - 15.0 MMOL/L 04/27/2024 3:13 PM T [facility] OSMOLALITY (CALC) 298 MOSM/KG 024 3:13 PM T [facility] Comment:REFERENCE RANGE NOT ESTABLISHED GFR ESTIMATE 45(L) >89 ML/MIN/1. 73 M2 04/27/2024 3:13 PM T [facility] GFR NOTES GFR REFERENCE S: 04/27/2024 3:13 PM T [facility] Comment: THE ESTIMATED GFR IS [...] ml/min/1.73 m2 04/27/2024 2:55 PM CDT Zayra SPAINP LABORATORY Final Result [facility] [address] [place] [address], * (ABNORMAL) CBC W/DIFF AUTOMATED (04/27/2024 2:55 PM CDT) WBC 7.40 4.00 - 10.80 x10'3/uL 04/27/2024 3:16 PM CDT [facility] RBC 4.45(L) 4.50 - 6.10 x10'6/uL 04/27/2024 3:16 PM CDT [facility] HGB 12.7(L) 13.0 - 18.0 G/DL 04/27/2024 3:16 PM CDT [facility] HCT 39.7 37.0 - 52.0 % 04/27/2024 3:16 PM CDT [facility] MCV 89.2 78.0 - 100.0 FL 04/27/2024 3:16 PM CDT [facility] MCH 28.5 27.0 - 31.0 PG 04/27/2024 3:16 PM CDT [facility] MCHC 32.0(L) 33.0 - 36.0 G/DL 04/27/2024 3:16 PM CDT [facility] RDW 16.9(H) 11.5 - 14.5 % 04/27/2024 3:16 PM CDT [facility] PLT 115(L) 150 - 350 x10'3/uL 04/27/2024 3:16 PM CDT [facility] MPV 10.0 7.4 - 10.4 FL 04/27/2024 3:16 PM CDT [facility] CBC COMMENT NORMAL REFERENCE RANGE NOT ESTABLISHED FOR THE PROPORTIONAL LEUKOCYTE DIFFERENTIAL. 04/27/2024 3:16 PM CDT [facility] NEUTROPHILS % 64.6 % 04/27/2024 3:44 PM CDT [facility] LYMPHOCYTES % 16.5 % 04/27/2024 3:44 PM CDT [facility] MONOCYTES % 12.8 % 04/27/2024 3:44 PM CDT [facility] EOSINOPHILS % 5.3 % 04/27/2024 3:44 PM CDT [facility] BASOPHILS % 0.5 % 04/27/2024 3:44 PM CDT [facility] IMMATURE GRANS % 0.3 % 04/27/20 3:44 PM CDT [facility] NRBC % 0.0 % 04/27/2024 3:44 PM CDT [facility] ABS. NEUTROPHILS 4.78 1.60 - 8.30 x10'3/uL 04/27/2024 3:44 PM CDT [facility] ABS. LYMPHOCYTES 1.22 0.80 - 4.70 x10'3/uL 04/27/2024 3:44 PM CDT [facility] ABS. MONOCYTES 0.95 0.00 - 1.50 x10'3/uL 04/27/2024 3:44 PM CDT [facility] ABS. EOSINOPHILS 0.39 0.00 - 0.40 x10'3/uL 04/27/2024 3:44 PM CDT [facility] ABS. BASOPHILS 0.04 0.00 - 0.20 x10'3/uL 04/27/2024 3:44 PM CDT [facility] ABS. IMMATURE GRANULOCYTES 0.02 0.00 - 0.03 x10'3/uL 04/27/2024 3:44 PM CDT [facility] ABS. NUCLEATED RBC'S 0.00 0.00 - 0.01 x10'3/uL 04/27/2024 3:44 PM CDT [facility] PLT MORPH. DECREASED 04/27/2024 3:44 PM CDT [facility] RBC MORPHOLOGY 2+ 04/27/2024 3:44 PM CDT [facility] Comment: ANISOCYTOSIS 2+ POIKILOCYTOSIS 1+ MICROCYTES 04/27/2024 2:55 PM CDT us Zayra K Andre FOXING PAINTER LABORATORY Final Result [facility] [address] [place] [address], documented in this encounter Visit Diagnoses Diagnosis 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)- Primary documented in this encounter Additional Health Concerns Assessment Noted Time PHQ-9 Depression Total Score: 0 12/02/19 22 1:18 PM CDT documented as of this encounter Care Teams Chief Technologist Relationship Specialty Start Date End Date Megan Infante MD [address] [place] [phone] PCP - General FAMILY PRACTICE 04/06/16 Zaki Ortiz MD [address] [place] [address] Consulting Physician PULMONARY DISEASE 07/12/19 Romeo-Concetta Pond MD [address] [place] [address] Surgeon NEUROLOGICAL SURGERY 12/16/22 Jeff Grace MD [address] [place] [address] Consulting Physician INTERNAL MEDICINE 02/11/23 Brit Gonzáles MD [address] [place] [address] Consulting Physician CARDIOVASCULAR DISEASE 12/29/23 documented as of this encounter
--- OUTSIDE RECORDS SUMMARY | 2024-09-03 19:07 | XMS_ITS | Encounter Summary ---
Author Organization [facility] Address [facility]6 [facility] [place] [address] [place] [address] Care Team Providers Care Skip Hoist Engineer Name Role Phone Megan Infante MD Primary Care Provider [phone] Zaki Ortiz MD Unavailable [phone] Concetta Acevedo MD Unavailable + [phone] Jeff Grace MD Unavailable Brit Gonzáles MD Unavailable Encounter Details Date Type Department Care Team (Latest Contact Info) Description 04/17/2024 Travel Social History Tobacco Use Types Packs/Day Years Used Date Smoking Tobacco: Former Passive Smoke Exposure: Past Smokeless Tobacco: Former Chew Alcohol Use Standard Drinks/Week Comments Yes 0 (1 standard drink = 0.6 oz pur e alcohol) 4 beers per week [facility] Utilities Answer Date Recorded In the past 12 months has [facility] [employer], gas, oil, or water [employer] threatened to shut off services in your [...] declined 02/16/2023 How often do you attend hinduism or gnosticist serv ices? Patient declined 02/16/2023 Do you belong to any clubs o r organizations such as hinduism groups, unions, fraternal or athletic groups, or [...] on to questions 3-9 0 12/01/2021 [facility] - Occupational Stress [...] place to sleep or slept in a senior living (including now)? Patient declined 07/12/2023 Sex and [...] Date Author Status No 07/12/2023 6:58 PM PLASTICS REPAIRER Liliana Gutierrez, RN Active documented in this encounter Plan of Treatment Upcoming Encounters Date Type Department Care Team (Late st Contact Info) Description 09/25/2024 2:00 [address]ICS REPAIRER Appointment [facility] [address] [facility] [place] [address] Zayra Powell, POST OFFICE MANAGER [address] [facility] [place] [address] 10/16/2024 3:30 PM PLASTICS REPAIRER Office Visit [facility] [address] [facility] [place] [address] Brit Gonzáles MD [address] [place] [address] documented as of this encounter [...] documented as of this encounter Care Teams Skip Hoist Engineer Relationship Specialty Start Date End Date Megan Infante MD [address] [place] [address] PCP - General FAMILY PRACTICE 04/06/16 Zaki Ortiz MD [address] [place] [address] Consulting Physician PULMONARY DISEASE 07/12/19 Concetta Acevedo MD [address] [place] [address] Surgeon NEUROLOGICAL SURGERY 12/16/22 Jeff Grace MD [address] [place] [address] Consulting Physician INTERNAL MEDICINE 02/11/23 Brit Gonzáles MD [address] [place] [address] Consulting Physician CARDIOVASCULAR DISEASE 12/29/23 documented as of this encounter
--- OUTSIDE RECORDS SUMMARY | 2024-09-03 19:07 | XMS_ITS | Encounter Summary ---
Author Organization [facility] Address [facility] [place] [address] [place] [address] Care Team Providers Care Quality Nurse Name Role Phone Megan Infante MD Primary Care Provider [phone] Zaki Ortiz MD Unavailable [phone] Concetta Acevedo MD Unavailable + [phone] Jeff Grace MD Unavailable Brit Gonzáles MD Unavailable Encounter Details Date Type Department Care Team (Late st Contact Info) Description 04/27/2024 Orders Only [facility] [address] [place] [address] Megan Infante MD [address] [place] [address] Social History Tobacco Use Types Packs/Day Years Used Date Smoking Tobacco: Former Passive Smoke Exposure: Past Smokeless Tobacco: Former Chew Alcohol Use Standard Drinks/Week Comments Yes 0 (1 standard drink = 0.6 oz pur e alcohol) 4 beers per week [facility] Utilities Answer Date Recorded In the past 12 months has e [employer], gas, oil, or water [employer] threatened to shut off services in your [...] declined 02/16/2023 How often do you attend oriental orthodox or restorationist serv ices? Patient declined 02/16/2023 Do you belong to any clubs o r organizations such as oriental orthodox groups, unions, fraternal or athletic groups, [...] move on to questions 3-9 0 12/01/2021 [facility] Occupat ional Health - [...] Assessment Author Status No 07/12/2023 6:58 PM V BELT FINISHER Liliana Gutierrez RN Active documented as of this encounter Mental Status * Because of a physical, mental, or emotional condition, do you have serious difficulty concentrating, remembering, or making decisions? Answer Entry Date Author Status No 07/12/2023 6:58 PM Liliana Layne RN Active documented in this encounter Plan of Treatment Upcoming Encounters Date Type Department Care Team (Late st Contact Info) Description 09/25/2024 2:00 PM V BELT FINISHER Appointment [facility] [address] [place] [address] Zayra Powell, DISTRICT SALES COORDINATOR [address] [facility] [place] [address] 10/16/2024 3:30 PM V BELT FINISHER Office Visit [facility] [address] [place] [address] Brit Gonzáles MD [address] [place] [address] documented as of this encounter Goals Goal Patient Goal Type Associated Problems Recent Progress Patient-Stated? Author Family - family caregiver with be involved in care transitions and discharge planning Lifestyle No Karen Quezada RN documented as of this encounter Results * (ABNORMAL) PROTIME/INR, VENOUS (04/27/2024 2:55 PM CDT) PROTIME 30.2(H) 9.4 - 12.5 SEC 04/27/2024 4:19 PM CDT [facility] INR 2.6(H) 0.8 - 1.0 04/27/2024 4:19 PM CDT [facility] 04/27/2024 2:55 PM CDT Megan Infante MD LABORATORY Final Result [facility] [address] [employer] [address] [phone] documented in this encounter Visit Diagnoses Diagnosis A-fib (CMS/HCC HHS/HCC)- Primary Atrial fibrillation documented in this encounter Additional Health Concerns Assessment Noted Time PHQ-9 Depression Total Score: 0 12/02/19 22 1:18 PM CDT documented as of this encounter Care Teams Quality Nurse Relationship Specialty Start Date End Date Megan Infante MD [address] [place] [address] PCP - General FAMILY PRACTICE 04/06/16 Zaki Ortiz MD [address] [place] [address] Consulting Physician PULMONARY DISEASE 07/12/19 Concetta Acevedo MD [address] [place] [id number] Surgeon NEUROLOGICAL SURGERY 12/16/22 Jeff Grace MD [address] [place] [address] Consulting Physician INTERNAL MEDICINE 02/11/23 Brit Gonzáles MD [address] [place] [address] Consulting Physician CARDIOVASCULAR DISEASE 12/29/23 documented as of this encounter
--- OUTSIDE RECORDS SUMMARY | 2024-09-03 19:07 | XMS_ITS | Encounter Summary ---
Author Organization [facility] Address [facility] [place] [address] [place] [address] Care Team Providers Care Bundle Collector Name Role Phone Megan Infante MD Primary Care Provider [phone] Zaki Ortiz MD Unavailable [phone] Concetta Acevedo MD Unavailable + [phone] Jeff Grace MD Unavailable Brit Gonzáles MD Unavailable Encounter Details Date Type Department Care Team (Late st Contact Info) Description 05/16/2024 12:49 PM CDT - 05/16/2024 11:59 PM CDT Hospital Encounter [facility] [address] [place] [address] Zayra Powell, [facility] [address] [place] [address] Discharge Disposition: Home or Self Care (Routine Discharge) Social History Tobacco Use Types Packs/Day Years Used Date Smoking Tobacco: Former Passive Smoke Exposure: Past Smokeless Tobacco: Former Chew Alcohol Use Standard Drinks/Week Comments Yes 0 (1 standard drink = 0.6 oz pur e alcohol) 4 beers per week [place] Utilities Answer Date Recorded In the past 12 months has e electric, gas, oil, or water [employer] threatened to shut off services in your [...] declined 02/16/2023 How often do you attend alevism or moravian serv ices? Patient declined 02/16/2023 Do you belong to any clubs o r organizations such as alevism groups, unions, fraternal or athletic groups, or [...] move on to questions 3-9 0 12/01/2021 [facility] - [facility]ational Stress Questionnaire [...] a half-way (including now)? Patient declined 07/12/2023 Sex and [...] Progress Notes * Mary Moore RN - 05/16/2024 1:00 PM CDTEncounter addended by: Mary Moore RN on: 05/16/2024 2:08 PM Actions taken: MAR administration accepted documented in this encounter Plan of Treatment Upcoming Encounters Date Type Department Care Team (Late st Contact Info) Description 09/25/2024 2:00 PM SURGICAL PROCESSOR Appointment [facility] [address] [place] [address] Zayra Powell, OPERATIONS SECTION MANAGER [address] [place] [address] 10/16/2024 3:30 PM SURGICAL PROCESSOR Office Visit [facility] [address] [place] [address] [address] Brti Gonzáles MD [address] [place] [address] documented as of this encounter Goals Goal [...] URO-JET jelly Topical, Once, 1 dose, On Wed05/16/24 at 1345Indications: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),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) Given 05/16/2024 1:10 PM CDT documented in this encounter Additional Health Concerns Assessment Noted Time PHQ-9 Depression Total Score: 0 12/02/19 22 1:18 PM CDT documented as of this encounter Care Teams Bundle Collector Relationship Specialty Start Date End Date Megan Infante MD [address] [place] [phone] PCP - General FAMILY PRACTICE 04/06/16 Zaki Ortiz MD [facility] [place] [phone] Consulting Physician PULMONARY DISEASE 07/12/19 Saraho-Concetta Pond MD [address] [place] [address] [phone] Surgeon NEUROLOGICAL SURGERY 12/16/22 Jeff Grace MD [address] [place] [phone] Consulting Physician INTERNAL MEDICINE 02/11/23 Brit Gonzáles MD [address] [place] [address] Consulting Physician CARDIOVASCULAR DISEASE 12/29/23 documented as of this encounter
--- OUTSIDE RECORDS SUMMARY | 2024-09-03 19:07 | XMS_ITS | Encounter Summary ---
Author Organization [facility] Address [facility]. [place], [place] [address] [place] [address] Care Team Providers Care Fire Management Technician Name Role Phone Megan Infante MD Primary Care Provider [phone] Zaki Ortiz MD Unavailable [phone] Concetta Acevedo MD Unavailable + [phone] Jeff Grace MD Unavailable Brit Gonzáles MD Unavailable Reason for Referral * Imaging (Routine) - Closed Specialty Diagnoses / Procedures Referred By Yung sequeira Referred To Contact RADIOLOGY Diagnoses Chronic venous insufficiency Varicose veins of bilateral lower extremities with other complications PAD (peripheral artery disease) ([facility]/HCC) Procedures USV STELLA LTD ELZA Jeff Grace MD [address] [place] [address] Phone: tel: fax: Referral ID Status Reason Start Date Expiration Date Visits Re quested Visits Authorized [id number] Closed 04/17/2024 05/18/2025 1 1 * Imaging (Routine) - Pending Review Specialty Diagnoses / Procedures Referred By Yung sequeira Referred To Contact RADIOLOGY Diagnoses Chronic venous insufficiency Varicose veins of bilateral lower extremities with other complications Procedures USV VENOUS REFLUX LOW ELZA Jeff Grace MD [address] [place] [address] Phone: tel: fax: Referral ID Status Reason Start Date Expiration Date V isits Requested Visits Authorized [id number] Pending Review 04/17/2024 05/18/2025 1 1 Reason for Visit * Reason Comments Follow Up Wounds BLE draining, open, nonhealing and very painful with numbness at times Encounter Details Date Type Department Care Team (Late st Contact Info) Description 04/17/2024 2:45 PM CDT [facility] [address] [place] [phone] Jeff Grace MD [address] [place] [address] Follow Up (Wounds BLE draining, open, nonhealing and very painful with numbness at times) Social History Tobacco Use Types Packs/Day Years Used Date Smoking Tobacco: Former Passive Smoke Exposure: Past Smokeless Tobacco: Former Chew Tobacco Cessation:Counseling Given: Not Answered Alcohol Use Standard Drinks/Week Comments Yes 0 (1 standard drink = 0.6 oz pur e alcohol) 4 beers per week [facility] Utilities Answer Date Recorded In the past 12 months has [facility] [employer], gas, oil, or water [employer] threatened to shut off services in your [...] declined 02/16/2023 How often do you attend taoist or cheondoism serv ices? Patient declined 02/16/2023 Do you belong to any clubs o r organizations such as taoist groups, unions, fraternal or athletic groups, or [...] move on to questions 3-9 0 12/01/2021 [facility] of Occupat ional [facility] - Occupational Stress Questionnaire Answer Date [...] Sign Reading Time Taken Comments Blood Pressure 126/84 04/17/2024 2:46 PM CDT Pulse 82 04/17/2024 2:46 PM CDT Temperature - - Respiratory Rate 18 04/17/2024 2:46 PM CDT Oxygen Saturation 92% 04/17/2024 2:46 PM CDT Inhaled Oxygen Concentration - - Weight 97.6 kg (215 lb 3.2 oz) 04/17/2024 2:46 P M CDT Height 167.6 cm (5' 6 ) 04/17/2024 2:46 PM CDT Body Mass Index 34.73 04/17/2024 2:46 PM CDT documented in this encounter Functional [...] Assessment Author Status Yes 07/12/2023 6:58 PM Lilaina Layne RN Active * Do you have [...] Layne RN Active documented in this encounter Patient Instructions * Patient Instructions* Adriana Choi RN - 04/17/2024 2:45 PM CDT Please have STELLA vascular testing when able in [place]. Please follow up with this office in 2 months with venous incompetency testing and office appointment. Thank you!! documented in this encounter Progress Notes * Jeff Grace MD - 04/17/2024 2:45 PM CDT Reason for Visit: Follow Up (Wounds BLE draining, open, nonhealing and very painful with numbness at times) History of Present Illness: 68-year-old male whose cardiovascular status consists of: 1. Chronic venous insufficiency with CEAP disease. 2. CAD/CHF with pulmonary hypertension. 3. Atrial fibrillation- chronic Coumadin. 4. - AVR. 5. COPD. Patient has been referred to me for evaluation of bilateral lower extremity wounds that been present for last 3 months. He has been going to the wound center and is wearing some compression. He had arterial testing done which noted no significant stenosis but low resistance flow noted. Upstroke seems reasonable though. He has seen me in the past. Still sleeps in bed and recliner both even though he has a hospital bed at home. Walking is very limited. He complains of leg pains which really bothers him so much that he is asking for pain meds. ASSESSMENT AND PLAN: 1. Chronic venous insufficiency with CEAP disease with lymphedema. I will get STELLA since last done was more than 2 years ago. Arterial duplex is negative but low resistance flow noted. Will get ABIs. Would recommend multilayer compression, leg elevation and calf pump exercises and eventual lymphedema pump. Will need to be daily compression referral to lymphedema therapy. Patient leg pain is more suggestive of peripheral neuropathy. 2. CAD/CHF with pulmonary hypertension. Defer to Dr. Gonzáles. 3. Atrial fibrillation- Coumadin. 4. - AVR. 5. COPD. Will get STELLA soon. Will follow-up in 2 to 3 months with venous reflux testing. Medications: Current Outpatient Medications: albuterol sulfate HFA [...] 2 (two) times daily., Disp: , Rfl: cyclobenzaprine (FLEXERIL) 10 MG tablet, Take 1 [...] per PCP, Disp: 30 tablet, Rfl: 0 CIRCAID COMPRESSION WRAP, DME,, 1 Package by Does not apply route daily. One garment each leg (Patient not taking: Reported on 04/17/2024), Disp: 2 Package, Rfl: 0 Review of patient's allergies indicates: No Known Allergies Past Medical History: Diagnosis Date Abnormal ankle brachial index (STELLA) Acute on chronic heart failure, unspecified heart failure type ([facility]) Anxiety Aortic valve stenosis Arthritis Asthma, mild persistent ([facility]) 04/06/2021 Atrial fibrillation ([facility]) s/p PVI/[facility] 10/2015 Bilateral leg pain Carotid disease, bilateral ([facility]) CHF (congestive heart failure) ([facility]) Claudication ([facility]) COPD (chronic obstructive pulmonary disease) ([facility]) Coronary artery disease Diabetes mellitus, type II ([facility]) Edema 04/19/2018 2+ pitting History of blood transfusion Hyperlipidemia Hypertension LV dysfunction Non-pressure chronic ulcer of left calf limited to breakdown of skin ([facility]) 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 breakdown of skin ([facility]) Osteoarthritis PAD (peripheral artery disease) ([facility]) Pneumonia Restless leg syndrome S/P aortic valve replacement with bioprosthetic valve 2013 SOB (shortness of breath) Stroke ([facility]) Varicose veins of bilateral lower extremities with other complications Weight gain with edema Past Surgical History: Procedure Laterality Date APPENDECTOMY CARDIAC VALVE REPLACEMENT 1999 CARDIAC VALVE REPLACEMENT 2013 CARDIOVERSION EXTERNAL 10/01/2015 CARDIOVERSION EXTERNAL 04/14/2012 COLONOSCOPY N/A 03/18/2021 COLONOSCOPY (Incomplete) performed by Kilo Navarro MD at [facility] OR COLONOSCOPY N/A 01/27/2022 COLONOSCOPY WITH COLD SNARE POLYPECTOMY performed by Kilo Navarro MD at [facility] OR HIP ARTHROPLASTY Left KNEE ARTHROPLASTY Bilateral [...] of breath and snoring. Cardiovascular: See HPI. Positive for leg swelling and slow healing cuts/wounds. Gastrointestinal: Negative for blood in stool and melena. Genitourinary: Negative for dysuria. Musculoskeletal: Negative for myalgias and new or worsening joint stiffness/pain. Skin: Negative for rash. Neurological: Negative for tingling/numbness and focal weakness. Endo/Heme/Allergies: Negative for new or significant bruising/bleeding and polydipsia. Psychiatric/Behavioral: Negative for depression and new or significant memory loss. Vitals: 04/17/24 1446 BP: 126/84 Pulse: 82 Weight: 97.6 kg (215 lb 3.2 oz) Height: 1.676 m (5' 6 ) Body mass index is 34.73 kg/m??. Cardiac Exam Rate/Rhythm: Normal rate and regular rhythm. PMI: PMI is not displaced. Pulses: Normal pulses. Femoral pulses are 2+ on the right side and 2+ on the left side. Heart Sounds: Normal heart sounds. Normal S1 sounds. Normal S2 sounds. No gallop present. No S3. NoS4. Murmurs: Edema left: 1+. Edema Right: 1+. Physical Exam Constitutional: No distress. Healthy Appearance. [...] affect. Normal motor skills. Normal gait. Comments: Bilateral lower extremity edema with venous stasis changes and xerosis. Superficial wound noted in left lower extremity and multiple wounds noted in right lateral lower extremity. Edema extends to feet with positive Stemmer sign bilaterally. No large varicose veins noted but spider reticular veins noted with early ankle flare. Diagnoses/Impression: 1. Chronic venous insufficiency USV VENOUS REFLUX LOW ELZA USV STELLA LTD ELZA 2. Varicose veins of bilateral lower extremities with other complications USV VENOUS REFLUX LOW ELZA USV STELLA LTD ELZA 3. PAD (peripheral artery disease) (CMS/HCC) USV STELLA LTD ELZA Referring Provider: No ref. provider found PCP: MEGAN INFANTE MD documented in this encounter Plan of Treatment Upcoming Encounters Date Type Department Care Team (Late st Contact Info) Description 09/25/2024 2:00 PM BATH STEWARD/STEWARDESS Appointment [facility] [address] [place] [address] Zayra Powell FNP [address] [place] [address] 10/16/2024 3:30 PM BATH STEWARD/STEWARDESS Office Visit [facility] [address] [place] [phone] Brit Gonzáles MD [address] [place] [address] Scheduled Orders Name Type Priority Associated Diagnoses Orde r Schedule USV VENOUS REFLUX LOW ELZA US VASC Routine Chronic venous insufficiency Varicose veins of bilateral lower extremities with other complications Expected: 06/14/2024 (Approximate), Expires: 10/18/2025 documented as of this encounter Goals Goal Patient Goal Type Associated Problems Recent Progress Patient-Stated? Author Family - family caregiver with be involved in care transitions and discharge planning Lifestyle Karen Diane, YUNI documented as of this encounter Results * USV STELLA LTD ELZA (04/27/2024 2:54 PM CDT) Anatomical Region Laterality Modality Extremity Ultrasound 04/27/2024 2:19 PM CDT Narrative 04/28/2024 3:12 PM CDT ?Outreach Arterial Doppler STELLA ?Vascular Report Pat.Name: ??Mendez Lay ?Pat.ID: ?[id number] ? St.Date: ?? 04/27/2024 ? Refer.: ??[facility] Exam Time: 2:19:00 PM ? Study Type:OUTREACH ART DOPPLER - STELLA Height: ?66 in ?Age: ??1955,68Y ? Sex: ? M ? Sonogrphr: jl Gupta rdms, rvt, rdcs Pat. Stat.:Outpatient ? Reason for Study:Chronic venous insufficiency, Varicose veins of bilateral lower extremities with other complications, PAD (peripheral artery disease), Wound BLE Procedures: Study performed at [place], [place] and interpreted by [facility]. ++++++++++++++++++++++++++++++++++++ SUMMARY: ++++++++++++++++++++++++++++++++++++ STELLA Rt: [...] Procedure Note Jeff Grace MD - 04/28/2024 Outreach Arterial Doppler STELLA Vascular Report Pat.Name: Mendez Lay Pat.ID: [id number] .Date: 04/27/2024 Refer.MD: Marco A, [facility] Exam Time: 2:19:00 PM Study Type:OUTREACH ART DOPPLER - STELLA Height: 66 in Age: 11 1955,68Y Sex: M Sonogrphr: jl Gupta rdms, rvt, rdcs Pat. Stat.:Outpatient Reason for Study:Chronic venous insufficiency, Varicose veins of bilateral lower extremities with other complications, PAD (peripheral artery disease), Wound BLE Procedures: Study performed at [place], [place] and interpreted by [facility]. ++++++++++++++++++++++++++++++++++++ SUMMARY: ++++++++++++++++++++++++++++++++++++ STELLA Rt: [...] this encounter Visit Diagnoses Diagnosis Chronic venous insufficiency- Primary Unspecified venous (peripheral) insufficiency Varicose veins of bilateral lower extremities with other complications PAD (peripheral artery disease) (CMS/HCC) Peripheral vascular disease, unspecified Chronic venous insufficiency Unspecified venous (peripheral) insufficiency Varicose veins of bilateral lower extremities with other complications PAD (peripheral artery disease) (CMS/HCC) Peripheral vascular disease, unspecified documented in this encounter Additional Health Concerns Assessment Noted Time PHQ-9 Depression Total Score: 0 12/02/19 22 1:18 PM CDT documented as of this encounter Care Teams Fire Management Technician Relationship Specialty Start Date End Date Megan Infante MD [address] [place] [address] PCP - General FAMILY PRACTICE 04/06/16 Zaki Ortiz MD [address] [place] [address] Consulting Physician PULMONARY DISEASE 07/12/19 Concetta Acevedo MD [address] [place] [address] Surgeon NEUROLOGICAL SURGERY 12/16/22 Jeff Grace MD [address] [place] [address] Consulting Physician INTERNAL MEDICINE 02/11/23 Brit Gonzáles MD [address] [place] [address] Consulting Physician CARDIOVASCULAR DISEASE 12/29/23 documented as of this encounter
--- OUTSIDE RECORDS SUMMARY | 2024-09-03 19:07 | XMS_ITS | Encounter Summary ---
Author Organization [facility] Address [facility] [place] [address] [place] [address] Care Team Providers Care Senior Advisor Name Role Phone Megan Infante MD Primary Care Provider [phone] Zaki Ortiz MD Unavailable [phone] Concetta Acevedo MD Unavailable + [phone] Jeff Grace MD Unavailable Brit Gonzáles MD Unavailable Encounter Details Date Type Department Care Team (Late st Contact Info) Description 05/09/2024 1:38 PM CDT - 05/09/2024 11:59 PM T Hospital Encounter [facility] [address] [place] [address] Zayra Powell, [facility] [address] [place] [address] Discharge Disposition: Home or Self Care (Routine Discharge) Social History Tobacco Use Types Packs/Day Years Used Date Smoking Tobacco: Former Passive Smoke Exposure: Past Smokeless Tobacco: Former Chew Alcohol Use Standard Drinks/Week Comments Yes 0 (1 standard drink = 0.6 oz pur e alcohol) 4 beers per week [facility] Utilities Answer Date Recorded In the past [...] How often do you attend yazidism or jew serv ices? Patient declined 02/16/2023 [...] move on to questions 3-9 0 12/01/2021 [facility] Occupat ional Health - [...] st Contact Info) Description 09/25/2024 2:00 PM QUARTER BACKER Appointment [facility] [address] [place] [address] Zayra Powell, TEACHER EARLY CHILDHOOD DEVELOPMENT [address] [place] [address] 10/16/2024 3:30 PM QUARTER BACKER Office Visit [facility] [address] [place] [phone] Brit Gonzáles MD [address] [place] [address] documented as of this encounter Goals Goal Patient Goal Type Associated Problems Recent Progress Patient-Stated? Author Family - family caregiver with be involved in care transitions and discharge planning Lifestyle No Karen Quezada RN documented as of this encounter Procedures Procedure Name Priority Date/Time Associated Diagnosis Comments BASIC METABOLIC PANEL Routine 05/09/2024 1:46 PM CDT Elevated serum creatinine documented in this encounter Results * (ABNORMAL) BASIC METABOLIC PANEL (05/09/2024 1:46 PM CDT) SODIUM S/P/B 137 136 - 145 MMOL/L 05/09/2024 2:30 PM CDT [facility] POTASSIUM S/P/B 4.8 3.5 - 5.1 MMOL/L 05/09/2024 2:30 PM CDT [facility] CHLORIDE S/P/B 101 98 - 107 MMOL/L 05/09/2024 2:30 PM CDT [facility] CO2 24.3 21.0 - 32.0 MMOL/L 05/09/2024 2:30 PM CDT [facility] GLUCOSE 97 70 - 99 MG/DL 05/09/2024 2:30 PM CDT [facility] Comment: FASTING GLUCOSE 100 TO 125 MG/DL IS CONSISTENT WITH IMPAIRED FASTING GLUCOSE. FASTING GLUCOSE >125 MG/DL IS CONSISTENT WITH DIABETES. RANDOM GLUCOSE >200 MG/DL WITH HYPERGLYCEMIC SYMPTOMS IS CONSISTENT WITH DIABETES. PER ADA GUIDELINES BUN 56(H) 6 - 24 MG/DL 05/09/2024 2:30 PM CDT [facility] CREATININE S/P/B 2.16(H) 0.70 - 1.30 MG/DL 05/09/2024 2:30 PM CDT [facility] CALCIUM S/P/B 9.0 8.4 - 10.5 MG/DL 05/09/2024 2:30 PM CDT [facility] ANION GAP 11.7 5.0 - 15.0 MMOL/L 05/09/2024 2:30 PM CDT [facility] OSMOLALITY (CALC) 299 MOSM/KG 024 2:30 PM CDT [facility] Comment:REFERENCE RANGE NOT ESTABLISHED GFR ESTIMATE 32(L) >89 ML/MIN/1. 73 M2 05/09/2024 2:30 PM CDT [facility] GFR NOTES GFR REFERENCE S: 05/09/2024 2:30 PM CDT [facility] Comment: THE ESTIMATED GFR IS CALCULATED [...] <15 ml/min/1.73 m2 05/09/2024 1:46 PM CDT us Zayra Powell TEACHER [facility] Final Result [facility] [address] [employer] [address] [phone] documented in this encounter Visit Diagnoses Diagnosis Elevated serum creatinine Other nonspecific findings on examination of blood documented in this encounter Additional Health Concerns Assessment Noted Time PHQ-9 Depression Total Score: 0 12/02/19 22 1:18 PM CDT documented as of this encounter Care Teams Senior Advisor Relationship Specialty Start Date End Date Megan Infante MD [address] [facility] [place] [address] PCP - General FAMILY PRACTICE 04/06/16 Zaki Ortiz MD [address] [facility] [place] [address] Consulting Physician PULMONARY DISEASE 07/12/19 Concetta Acevedo MD [address] [place] [address] Surgeon NEUROLOGICAL SURGERY 12/16/22 Jeff Grace MD [address] [place] [address] Consulting Physician INTERNAL MEDICINE 02/11/23 Brit Gonzáles MD [address] [place] [address] Consulting Physician CARDIOVASCULAR DISEASE 12/29/23 documented as of this encounter
--- OUTSIDE RECORDS SUMMARY | 2024-09-03 19:07 | XMS_ITS | Encounter Summary ---
Author Organization [facility] Address [facility] [place] [address] [place] [address] Care Team Providers Care Regional Account Executive Name Role Phone Megan Infante MD Primary Care Provider [phone] Zaki Ortiz MD Unavailable [phone] Concetta Acevedo MD Unavailable + [phone] Jeff Grace MD Unavailable Brit Gonzáles MD Unavailable Encounter Details Date Type Department Care Team (Latest Contact Info) Description 05/09/2024 Travel Social History Tobacco Use Types Packs/Day Years Used Date Smoking Tobacco: Former Passive Smoke Exposure: Past Smokeless Tobacco: Former Chew Alcohol Use Standard Drinks/Week Comments Yes 0 (1 standard drink = 0.6 oz pur e alcohol) 4 beers per week [facility] Utilities Answer Date Recorded In the past 12 months has [facility] [email or web address], gas, oil, or water [employer] threatened to shut off services in your [...] declined 02/16/2023 How often do you attend yazidi or mu-ism serv ices? Patient declined 02/16/2023 Do you belong to any clubs o r organizations such as yazidi groups, unions, fraternal or athletic groups, or [...] move on to questions 3-9 0 12/01/2021 [facility] of Occupat ional Health - Occupational [...] Date Author Status No 07/12/2023 6:58 PM FLOOR COVERING LAYER Liliana Gutierrez, RN Active documented in this encounter Plan of Treatment Upcoming Encounters Date Type Department Care Team (Late st Contact Info) Description 09/25/2024 2:00 PM FLOOR COVERING LAYER Appointment [facility] [address] [facility] [place] [address] Zayra Powell, SLUG PRESS OPERATOR [address] [place] [address] 10/16/2024 3:30 PM FLOOR COVERING LAYER Office Visit [facility] [address] [facility] [address] Brit Gonzáles MD [address] [place] [address] documented as of this encounter [...] documented as of this encounter Care Teams Regional Account Executive Relationship Specialty Start Date End Date Megan Infante MD [address] [place] [address] PCP - General FAMILY PRACTICE 04/06/16 aZki Ortiz MD [address] [place] [address] Consulting Physician PULMONARY DISEASE 07/12/19 Concetta Acevedo MD [address] [place] [address] Surgeon NEUROLOGICAL SURGERY 12/16/22 Jeff Grace MD [address] [place] [address] Consulting Physician INTERNAL MEDICINE 02/11/23 Brit Gonzáles MD [address] [place] [address] Consulting Physician CARDIOVASCULAR DISEASE 12/29/23 documented as of this encounter
--- OUTSIDE RECORDS SUMMARY | 2024-09-03 19:08 | XMS_ITS | Encounter Summary ---
Author Organization [facility] Address [address] [place] [address]. [place] [address] [place] [address] Care Team Providers Care Health Care Assistant Name Role Phone Piyush Pandey MD Unavailable Unavailabl e Megan Infante MD Primary Care Provider [phone] Sharmila Davis APRN, NP-C Unavailable [phone] Zaki Ortiz MD Unavailable [phone] Concetta Acevedo MD Unavailable + [phone] Jeff Grace MD Unavailable Encounter Details Date Type Department Care Team (Late st Contact Info) Description 08/24/2023 11:30 AM EDITOR MAGAZINE - 08/24/2023 11:59 PM [facility] Hospital Encounter [facility] [address] [place] [address] Zayra Powell, [facility] [address] [place] [address] Discharge Disposition: Home or Self Care (Routine Discharge) Social History Tobacco Use Types Packs/Day Years Used Date Smoking Tobacco: Former Smokeless Tobacco: Former Chew Alcohol Use Standard Drinks/Week Comments Yes 0 (1 standard drink = 0.6 oz pur e alcohol) 6 beers per week [facility] Utilities Answer Date Recorded In [...] How often do you attend presybeterian or baptist serv ices? Patient declined 02/16/2023 Do you [...] move on to questions 3-9 0 12/01/2021 [facility] of Occupat ional Health - Occupational Stress [...] (25 mg total) by mouth daily. 10/31/2022 losartan (COZAAR) 50 MG tablet Take 1 tablet (50 mg total) by mouth daily. 03/30/2023 4 metFORMIN (GLUCOPHAGE) 500 MG tablet Take 1 [...] by mouth nightly at bedtime. 10/17/2022 4 sertraline 50 MG tablet Take 1 tablet [...] st Contact Info) Description 09/25/2024 2:00 PM EDITOR MAGAZINE Appointment [facility] [address] [place] [address] Zayra Powell FNP [address] [place] [address] 10/16/2024 3:30 PM EDITOR MAGAZINE Office Visit [facility] [address] [place] [address] Brit Gonzáles MD [address] [place] [address] documented as of this encounter Goals Goal Patient Goal Type Associated Problems Recent Progress Patient-Stated? Author Family - family caregiver with be involved in care transitions and discharge planning Lifestyle No Karen Quezada RN documented as of this encounter Visit Diagnoses Not on filedocumented in this encounter Additional Health Concerns Assessment Noted Time PHQ-9 Depression Total Score: 0 04/11/20 22 1:18 PM CDT documented as of this encounter Care Teams Health Care Assistant Relationship Specialty Start Date End Date Megan Infante MD [address] [facility] [place] [address] PCP - General FAMILY PRACTICE 04/06/16 Piyush Pandey MD Edison Packing Machine Inspector CARDIOVASCULAR DISEASE 04/06/16 12/28/23 Sharmila Davis, CMO & PRESIDENT, ASSISTANT STORE MANAGER TRAINEE-C [address] [address] NURSE PRACTITIONER 01/04/17 04/03/24 Zaki Ortiz MD [address] [place] [address] Consulting Physician PULMONARY DISEASE 07/12/19 Concetta Acevedo MD [address] [place] [address] Surgeon NEUROLOGICAL SURGERY 12/16/22 Jeff Grace MD [address] [place], [place] [address] Consulting Physician INTERNAL MEDICINE 02/11/23 documented as of this encounter
--- OUTSIDE RECORDS SUMMARY | 2024-09-03 19:08 | XMS_ITS | Encounter Summary ---
Author Organization [facility] Address [facility]ly [facility], [facility]6 [facility] [place] [address] [place] [address] Care Team Providers Care Kelp Cutter Name Role Phone Megan Infante MD Primary Care Provider [phone] Sharmila Davis APRN, NP-C Unavailable Zaki Ortiz MD Unavailable [phone] Concetta Acevedo MD Unavailable + [phone] Jeff Grace MD Unavailable Brit Gonzáles MD Unavailable Reason for Visit * Reason Onset Date Comments Appointment Request 12/29/2023 Fluid overlo ad Encounter Details Date Type Department Care Team (Late st Contact Info) Description 12/29/2023 Telephone [facility] [address] [place] [address] Brit Gonzáles MD [address] [place] [address] Appointment Request (Fluid overload) Social History Tobacco Use Types Packs/Day Years Used Date Smoking Tobacco: Former Smokeless Tobacco: Former Chew Alcohol Use Standard Drinks/Week Comments Yes 0 (1 standard drink = 0.6 oz pur e alcohol) 6 beers per week [facility] Utilities Answer Date Recorded In the past 12 months has [employer], gas, oil, or water company threatened to [...] How often do you attend druze or restorationist serv ices? Patient declined 02/16/2023 [...] on to questions 3-9 0 12/01/2021 [facility] of Occupat ional Health [...] a correction (including now)? Patient declined 07/12/2023 Sex and [...] Layne RN Active documented in this encounter Progress Notes * Bethanie Lay - 12/29/2023 3:02 PM CDT Mariel called to schedule appt in [place] in January for fluid overload Scheduled 01/31/[address] Gonzáles. Records requested. documented in this encounter Plan of Treatment Upcoming Encounters Date Type Department Care Team (Late st Contact Info) Description 09/25/2024 2:00 PM FLAME BURNER Appointment [facility] [address] [place] [address] Zayra Powell, [facility] [address] [place] [address] 10/16/2024 3:30 PM FLAME BURNER Office Visit [facility] [address] [place] [address] Brit Gonzáles MD [address] [place] [address] documented as of this encounter Goals Goal [...] documented as of this encounter Care Teams Kelp Cutter Relationship Specialty Start Date End Date Megan Infante MD [address] [facility] [place] [address] PCP - General FAMILY PRACTICE 04/06/16 Sharmila Davis, SENIOR ENVIRONMENTAL PRACTICE LEADER, HISTORICAL MANUSCRIPTS CURATOR-C [address] [place] [address] NURSE PRACTITIONER 01/04/17 04/03/24 Zaki Ortiz MD [address] [place] [phone] Consulting Physician PULMONARY DISEASE 07/12/19 Concetta Acevedo MD [address] [place] [address] Surgeon NEUROLOGICAL SURGERY 12/16/22 Jeff Grace MD [address] [place] [address] Consulting Physician INTERNAL MEDICINE 02/11/23 Brit Gonzáles MD [address] [place] [phone] Consulting Physician CARDIOVASCULAR DISEASE 12/29/23 documented as of this encounter
--- OUTSIDE RECORDS SUMMARY | 2024-09-03 19:08 | XMS_ITS | Encounter Summary ---
Author Organization [facility] Address [facility] [place] [address] [place] [address] Care Team Providers Care Older Worker Specialist Name Role Phone Megan Infante MD Primary Care Provider [phone] Sharmila Davis APRN, NP-C Unavailable [phone] Zaki Ortiz MD Unavailable [phone] Concetta Acevedo MD Unavailable + [phone] Jeff Grace MD Unavailable Brit Gonzáles MD Unavailable Encounter Details Date Type Department Care Team (Latest Contact Info) Description 01/31/2024 Travel Social History Tobacco Use Types Packs/Day Years Used Date Smoking Tobacco: Former Smokeless Tobacco: Former Chew Alcohol Use Standard Drinks/Week Comments Yes 0 (1 standard drink = 0.6 oz pur e alcohol) 4 beers per week [facility] Utilities Answer Date Recorded In the past 12 months has [employer], [employer], oil, or water [employer] threatened to shut off services in your [...] How often do you attend hoahaoism or mormonism serv ices? Patient declined 02/16/2023 [...] move on to questions 3-9 0 12/01/2021 [facility] of Occupat ional Health - [...] Date Author Status No 07/12/2023 6:58 PM METALLURGICAL LAB TECHNICIAN Liliana Gutierrez, YUNI Active documented in this encounter Plan of Treatment Upcoming Encounters Date Type Department Care Team (Late st Contact Info) Description 09/25/2024 2:00 PM METALLURGICAL LAB TECHNICIAN Appointment [facility] [address] [facility] [place] [address] Zayra Powell, OPTIONS ADVISOR [address] [place] [address] 10/16/2024 3:30 PM METALLURGICAL LAB TECHNICIAN Office Visit [facility] [address] [facility] [address] Brit Gonzáles MD [address] [place] [address] documented as of this encounter Goals [...] documented as of this encounter Care Teams Older Worker Specialist Relationship Specialty Start Date End Date Megan Infante MD [address] [place] [address] PCP - General FAMILY PRACTICE 04/06/16 Sharmila Davis APRN, REPLANTING MACHINE CREWMAN-C [address] [place] [address] NURSE PRACTITIONER 01/04/17 04/03/24 Zaki Ortiz MD [address] [place] [address] Consulting Physician PULMONARY DISEASE 07/12/19 Concetta Acevedo MD [address] [place] [address] Surgeon NEUROLOGICAL SURGERY 12/16/22 Jeff Grace MD [address] [place] [address] Consulting Physician INTERNAL MEDICINE 02/11/23 Brit Gonzáles MD [address] [place], [place] [address] Consulting Physician CARDIOVASCULAR DISEASE 12/29/23 documented as of this encounter
--- OUTSIDE RECORDS SUMMARY | 2024-09-03 19:08 | XMS_ITS | Encounter Summary ---
Author Organization [facility] Address [facility] [address] [place] [address] Care Team Providers Care Poured Concrete Wall Technician Name Role Phone Megan Infante MD Primary Care Provider [phone] Sharmila Davis APRN, NP-C Unavailable Zaki Ortiz MD Unavailable [phone] Concetta Acevedo MD Unavailable + [phone] Jeff Grace MD Unavailable Brit Gonzáles MD Unavailable Reason for Visit * Reason Onset Date Comments Appointment Reminder 01/28/2024 Encounter Details Date Type Department Care Team (Late st Contact Info) Description 01/28/2024 Telephone [facility] [address] [place] [address] Brit Gonzáles MD [address] [place] [address] Appointment Reminder Social History Tobacco Use Types Packs/Day Years Used Date Smoking Tobacco: Former Smokeless Tobacco: Former Chew Alcohol Use Standard Drinks/Week Comments Yes 0 (1 standard drink = 0.6 oz pur e alcohol) 6 beers per week [facility] Utilities Answer Date Recorded In [...] declined 02/16/2023 How often do you attend gnosticist or nondenominational serv ices? Patient declined 02/16/2023 Do you belong to any clubs o r organizations such as gnosticist groups, unions, fraternal or athletic groups, or [...] move on to questions 3-9 0 12/01/2021 [facility] of Occupat ional Health - Occupational Stress [...] documented in this encounter Progress Notes * Marily Torres - 01/28/2024 2:24 PM CDT Left message for patient reminding of appt on Wednesday with Dr. Gonzáles in [place]. Asked patient to return call if needing to r/s. documented in this encounter Plan of Treatment Upcoming Encounters Date Type Department Care Team (Late st Contact Info) Description 09/25/2024 2:00 PM INSULATION CUPOLA OPERATOR Appointment [facility] [address] [place] [address] aZyra Powell, BAKERY TEAM MEMBER [address] [place] [address] 10/16/2024 3:30 PM INSULATION CUPOLA OPERATOR Office Visit [facility] [address] [place] [address] Brit Gonzáles MD [address] [place] [address] documented as of this encounter Goals Goal [...] documented as of this encounter Care Teams Poured Concrete Wall Technician Relationship Specialty Start Date End Date Megan Infante MD [address] [facility] [phone] PCP - General FAMILY PRACTICE 04/06/16 Sharmila Davis, MOTORCYCLE POLICE OFFICER, CHOPPER GUN OPERATOR-C [address] [place] [address] NURSE PRACTITIONER 01/04/17 04/03/24 Zaki Ortiz MD [address] [place] [address] Consulting Physician PULMONARY DISEASE 07/12/19 Concetta Acevedo MD [address] [place] [address] Surgeon NEUROLOGICAL SURGERY 12/16/22 Jeff Grace MD [address] [place] [address] Consulting Physician INTERNAL MEDICINE 02/11/23 Brit Gonzáles MD [address] [place] [address] Consulting Physician CARDIOVASCULAR DISEASE 12/29/23 documented as of this encounter
--- OUTSIDE RECORDS SUMMARY | 2024-09-03 19:08 | XMS_ITS | Encounter Summary ---
Author Organization [facility] Address [facility]6 [facility] [address] [place] [address] Care Team Providers Care Armature Tester Name Role Phone Megan Infante MD Primary Care Provider [phone] Sharmila Davis APRN, NP-C Unavailable [phone] Zaki Ortiz MD Unavailable [phone] Concetta Acevedo MD Unavailable + [phone] Jeff Grace MD Unavailable Brit Gonzáles MD Unavailable Encounter Details Date Type Department Care Team (Late st Contact Info) Description 12/29/2023 Scan [facility] [address] [place] [address] Scanned, Doc Pccl Social History Tobacco Use Types Packs/Day Years Used Date Smoking Tobacco: Former Smokeless Tobacco: Former Chew Alcohol Use Standard Drinks/Week Comments Yes 0 (1 standard drink = 0.6 oz pur e alcohol) 6 beers per week [facility] Utilities Answer Date Recorded In the [...] declined 02/16/2023 How often do you attend sikh or hoahaoism serv ices? Patient declined 02/16/2023 Do you belong to any clubs o r organizations such as sikh groups, unions, fraternal or athletic groups, or [...] move on to questions 3-9 0 12/01/2021 [facility] of Occupat ional Health - Occupational Stress [...] Assessment Author Status No 07/12/2023 6:58 PM FAMILY RESOURCE MANAGEMENT PROFESSOR Liliana Gutierrez RN Active documented as of this encounter Mental Status * Because of a physical, mental, or emotional condition, do you have serious difficulty concentrating, remembering, or making decisions? Answer Entry Date Author Status No 07/12/2023 6:58 PM FAMILY RESOURCE MANAGEMENT PROFESSOR Liliana Gutierrez RN Active documented in this encounter Plan of Treatment Upcoming Encounters Date Type Department Care Team (Late st Contact Info) Description 09/25/2024 2:00 PM FAMILY RESOURCE MANAGEMENT PROFESSOR Appointment [facility] [address] [facility] [place] [place] [address] Zayra Powell, PREP ROOM SUPERVISOR [address] [facility] [place] [address] 10/16/2024 3:30 PM FAMILY RESOURCE MANAGEMENT PROFESSOR Office Visit [facility] [address] [facility] [place] [place] [address] Brit Gonzáles MD [address] [place], [place] [address] documented as of this encounter Goals Goal [...] documented as of this encounter Care Teams Armature Tester Relationship Specialty Start Date End Date Megan Infante MD [address] [place] [address] PCP - General FAMILY PRACTICE 04/06/16 Sharmila Davis APRN, RESPIRATORY THERAPY AIDE-C [address] [place] [address] [address] [place] [phone] NURSE PRACTITIONER 01/04/17 04/03/24 Zaki Ortiz MD [address] [place] [address] [address] [place] [address] Consulting Physician PULMONARY DISEASE 07/12/19 Concetta Acevedo MD [address] [place] [address] Surgeon NEUROLOGICAL SURGERY 12/16/22 Jeff Grace MD [address] [place] [address] Consulting Physician INTERNAL MEDICINE 02/11/23 Brit Gonzáles MD [address] [place] [address] Consulting Physician CARDIOVASCULAR DISEASE 12/29/23 documented as of this encounter
--- OUTSIDE RECORDS SUMMARY | 2024-09-03 19:08 | XMS_ITS | Encounter Summary ---
Author Organization [facility] Address [facility] [place] [address] [place] [address] Care Team Providers Care Technical Training Specialist Name Role Phone Megan Infante MD Primary Care Provider [phone] Sharmila Davis APRN, NP-C Unavailable Zaki Ortiz MD Unavailable [phone] Concetta Acevedo MD Unavailable + [phone] Jeff Grace MD Unavailable Jayce Younger MD Unavailable Encounter Details Date Type Department Care Team (Late st Contact Info) Description 01/27/2024 Orders Only [facility] [address] [place], [place] [address] Jayce Younger MD [address] [place] [address] Social History Tobacco Use Types Packs/Day Years Used Date Smoking Tobacco: Former Smokeless Tobacco: Former Chew Alcohol Use Standard Drinks/Week Comments Yes 0 (1 standard drink = 0.6 oz pur e alcohol) 6 beers per week [facility] Utilities [...] declined 02/16/2023 How often do you attend sikhism or mandaen serv ices? Patient declined 02/16/2023 Do you belong to any clubs o r organizations such as sikhism groups, unions, fraternal or athletic groups, or [...] questions 3-9 0 12/01/2021 [facility] of Occupat ional Health - Occupational [...] Assessment Author Status No 07/12/2023 6:58 PM SERVICES DELIVERY DRIVER Brenda, Liliana A, RN Active * Because of a physical, [...] st Contact Info) Description 09/25/2024 2:00 PM SERVICES DELIVERY DRIVER Appointment [facility] [address] [place] [address] Zayra Powell, AUTOMATIC PRESSER [address] [place] [address] 10/16/2024 3:30 PM SERVICES DELIVERY DRIVER Office Visit [facility] [address] [place] [address] Jayce Younger MD [address] [place] [address] documented as of this encounter Goals Goal Patient Goal Type Associated Problems Recent Progress Patient-Stated? Author Family - family caregiver with be involved in care transitions and discharge planning Lifestyle No Karen Quezada RN documented as of this encounter Results * ECG 12 lead (HOSPITAL PERFORMED ONLY) (01/31/2024 11:11 AM CDT) 01/31/2024 11:1 1 AM CDT Narrative [facility] RAD - 02/01/2024 6:16 AM CDT ? [facility] ?[address] [place] ??[id number] ? Test Date: ?2024-01-31 Pat Name: ? OBIE SIMS ?Department: ?? 3 ? Room: ? Gender: ? Male ? Wood Crew Supervisor: ?? : ?1955 ? Requested By: JAYCE YOUNGER Order Number: [id number] ? Reading MD: ?? Jayce Younger ? Measurements Intervals ?[place] ? Rate: ? 71 ? P: ? DC: ? 0 ?QRS: ?101 QRSD: ? 135 ?T: ?259 QT: ? 406 ? QTc: ?441 ? Interpretive Statements ATRIAL FIBRILLATION INTRAVENTRICULAR CONDUCTION DELAY POSSIBLE RIGHT VENTRICULAR HYPERTROPHY Procedure Note Jayce Younger MD - 02/01/2024 [facility] [address] [place] [address] Test Date: 2024-01-31 Pat Name: OBIE SIMS Department: 3 Room: Gender: Male Wood Crew Supervisor: : 1955 Requested By: JAYCE YOUNGER Order Number: [id number] Reading MD: Jayce Younger Measurements Intervals [place] Rate: 71 P: DC: 0 QRS: 101 QRSD: 135 T: 259 QT: 406 QTc: 441 Interpretive Statements ATRIAL FIBRILLATION INTRAVENTRICULAR CONDUCTION DELAY POSSIBLE RIGHT VENTRICULAR HYPERTROPHY us Jayce Younger MD ECG ORDERABLES Final Result [facility]NOTE 2] documented in this encounter Visit Diagnoses Diagnosis Chronic combined systolic and diastolic congestive heart failure (CMS/HCC HHS/HCC)- Primary Chronic combined systolic and diastolic heart failure Chronic combined systolic and diastolic congestive heart failure (CMS/HCC HHS/HCC) Chronic combined systolic and diastolic heart failure documented in this encounter Additional Health Concerns Assessment Noted Time PHQ-9 Depression Total Score: 0 12/02/19 22 1:18 PM CDT documented as of this encounter Care Teams Technical Training Specialist Relationship Specialty Start Date End Date Megan Infante MD [address] [place] [address] PCP - General FAMILY PRACTICE 04/06/16 Sharmila Davis, BARMAID, SENIOR INFORMATION DEVELOPER-C [address] [facility] [address] [place] [address] NURSE PRACTITIONER 01/04/17 04/03/24 Zaki Ortiz MD [address] [place] [address] [address] Consulting Physician PULMONARY DISEASE 07/12/19 Concetta Acevedo MD [address] [place] [address] Surgeon NEUROLOGICAL SURGERY 12/16/22 Jeff Grace MD [address] [place] [address] Consulting Physician INTERNAL MEDICINE 02/11/23 Jayce Younger MD [address] [place] [address] Consulting Physician CARDIOVASCULAR DISEASE 12/29/23 documented as of this encounter
--- OUTSIDE RECORDS SUMMARY | 2024-09-03 19:08 | XMS_ITS | Encounter Summary ---
Author Organization [facility] Address [facility] [place] [address] [place] [address] Care Team Providers Care Road Mender Name Role Phone Piyush Pandey MD Unavailable Unavailabl e Megan Infante MD Primary Care Provider [phone] Sharmila Davis APRN, NP-C Unavailable [phone] Zaki Ortiz MD Unavailable [phone] Concetta Acevedo MD Unavailable + [phone] Jeff Grace MD Unavailable Encounter Details Date Type Department Care Team (Latest Contact Info) Description 08/10/2023 Travel Social History Tobacco Use Types Packs/Day Years Used Date Smoking Tobacco: Former Smokeless Tobacco: Former Chew Alcohol Use Standard Drinks/Week Comments Yes 0 (1 standard drink = 0.6 oz pur e alcohol) 6 beers per week [facility] Utilities Answer Date Recorded In the past 12 months has [employer], gas, oil, or water [employer] threatened to shut off services in your [...] declined 02/16/2023 How often do you attend shinto or latter-day serv ices? Patient declined 02/16/2023 Do you belong to any clubs o r organizations such as shinto groups, unions, fraternal or athletic groups, or [...] move on to questions 3-9 0 12/01/2021 [facility] of Occupat ional Health - Occupational Stress [...] Date Author Status No 07/12/2023 6:58 PM SALES REVIEW CLERK Liliana Gutierrez, RN Active documented in this encounter Plan of Treatment Upcoming Encounters Date Type Department Care Team (Late st Contact Info) Description 09/25/2024 2:00 PM SALES REVIEW CLERK Appointment [facility] [address] [facility] [address] Zayra Powell, CLINICAL BIOSTATISTICS DIRECTOR [address] [facility] [place] [address] 10/16/2024 3:30 PM SALES REVIEW CLERK Office Visit [facility] [address] [facility] [place] [address] Brit Gonzáles MD [address]19 [place] [address] documented as of this encounter [...] documented as of this encounter Care Teams Road Mender Relationship Specialty Start Date End Date Megan Infante MD [address] [facility] [place] [address] PCP - General FAMILY PRACTICE 04/06/16 Piyush Pandey MD [facility] Veterinarian CARDIOVASCULAR DISEASE 04/06/16 12/28/23 Sharmila Davis APRN, DIRECTOR OF INTERCOLLEGIATE ATHLETICS-C [address] [place] [address] [address] [place] [address] NURSE PRACTITIONER 01/04/17 04/03/24 Zaki Ortiz MD [address] [facility] [address] [place] [address] Consulting Physician PULMONARY DISEASE 07/12/19 Concetta Acevedo MD [address] [place] [phone] Surgeon NEUROLOGICAL SURGERY 12/16/22 Jeff Grace MD [address] [place] [address] Consulting Physician INTERNAL MEDICINE 02/11/23 documented as of this encounter
--- OUTSIDE RECORDS SUMMARY | 2024-09-03 19:08 | XMS_ITS | Encounter Summary ---
Author Organization [facility] Address [facility] [facility] [place] [address] [place] [address] Care Team Providers Care Tape Duplicator Name Role Phone Megan Infante MD Primary Care Provider [phone] Sharmila Davis APRN, NP-C Unavailable [phone] Zaki Ortiz MD Unavailable [phone] Concetta Acevedo MD Unavailable + [phone] Jeff Grace MD Unavailable Brit Gonzáles MD Unavailable Encounter Details Date Type Department Care Team (Late st Contact Info) Description 02/28/2024 12:55 PM CDT - 02/28/2024 11:59 PM CDT Hospital Encounter [facility] [address] [place] [address] Zayra Powell, [facility] [address] [place] [address] Discharge Disposition: Home or Self Care (Routine Discharge) Social History Tobacco Use Types Packs/Day Years Used Date Smoking Tobacco: Former Smokeless Tobacco: Former Chew Alcohol Use Standard Drinks/Week Comments Yes 0 (1 standard drink = 0.6 oz pur e alcohol) 4 beers per week [facility] Utilities Answer Date Recorded In the past 12 months has [employer] electric, gas, oil, or water company threatened [...] How often do you attend mormonism or holiness serv ices? Patient declined 02/16/2023 Do you [...] move on to questions 3-9 0 12/01/2021 [facility] - Occupational [...] total) by mouth daily. 30 tablet 07/16/2023 12/12/202 4 tiZANidine (ZANAFLEX) 4 MG tablet Take 1 tablet (4 mg total) by mouth 3 (three) times daily as needed. traZODone (DESYREL) 150 MG tablet Take 2 [...] warfarin as per PCP 30 tablet 02/18/2023 warfarin (COUMADIN) 5 MG tablet Take 1 tablet (5 mg total) by mouth daily. Take with 1 mg tab to make it 6 mg daily. Repeat INR in 3-4 days to adjust the dose of warfarin as per PCP 30 tablet 02/18/2023 4 documented as of this encounter Progress Notes * Mary Moore RN - 02/28/2024 1:00 PM CDTEncounter addended by: Mary Moore RN on: 02/28/2024 3:42 PM Actions taken: MAR administration accepted * Eveline Manning - 02/28/2024 1:00 PM CDTEncounter addended by: Eveline Manning on: 03/02/2024 2:58 PM Actions taken: Charge Capture section accepted documented in this encounter Plan of Treatment Upcoming Encounters Date Type Department Care Team (Late st Contact Info) Description 09/25/2024 2:00 PM SKEINER Appointment [facility] [address] [address] Zayra Powell, GELATIN MAKER UTILITY [address] [place] [address] 10/16/2024 3:30 PM SKEINER Office Visit [facility] [address] [place] [address] Brit Gonzáles MD [address] [place] [address] documented as of this encounter [...] URO-JET jelly Topical, Once, 1 dose, On Wed02/28/24 at 1415Indications: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),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) Given 02/28/2024 1:20 PM CDT documented in this encounter Additional Health Concerns Assessment Noted Time PHQ-9 Depression Total Score: 0 12/02/19 22 1:18 PM CDT documented as of this encounter Care Teams Tape Duplicator Relationship Specialty Start Date End Date Megan Infante MD [address] [address] PCP - General FAMILY PRACTICE 04/06/16 Sharmila Davis APRN, UNDERTAKER ASSISTANT-C [address] [facility] [address] [place] [address] NURSE PRACTITIONER 01/04/17 04/03/24 Zaki Ortiz MD [address] [facility] [address] [place] [address] Consulting Physician PULMONARY DISEASE 07/12/19 Concetta Acevedo MD [address] [place] [address] Surgeon NEUROLOGICAL SURGERY 12/16/22 Jeff Grace MD [address] [place] [address] Consulting Physician INTERNAL MEDICINE 02/11/23 Brit Gonzáles MD [address] [place] [address] Consulting Physician CARDIOVASCULAR DISEASE 12/29/23 documented as of this encounter
--- OUTSIDE RECORDS SUMMARY | 2024-09-03 19:08 | XMS_ITS | Encounter Summary ---
Author Organization [facility] Address [facility]6 [facility] [place] [address] [place] [address] Care Team Providers Care Kiln Hand Name Role Phone Piyush Pandey MD Unavailable Unavailabl e Megan Infante MD Primary Care Provider [phone] Sharmila Davis APRN, NP-C Unavailable [phone] Zaki Ortiz MD Unavailable [phone] Concetta Acevedo MD Unavailable + [phone] Jeff Grace MD Unavailable Encounter Details Date Type Department Care Team (Latest Contact Info) Description 08/17/2023 Travel Social History Tobacco Use Types Packs/Day Years Used Date Smoking Tobacco: Former Smokeless Tobacco: Former Chew Alcohol Use Standard Drinks/Week Comments Yes 0 (1 standard drink = 0.6 oz pur e alcohol) 6 beers per week [facility] Utilities Answer Date Recorded In the past 12 months has [employer], gas, oil, or water [employer] threatened to shut off services in your [...] declined 02/16/2023 How often do you attend temple or yarsani serv ices? Patient declined 02/16/2023 Do you belong to any clubs o r organizations such as temple groups, unions, fraternal or athletic groups, or [...] 0 12/01/2021 [facility] Occupat ional [facility] - [...] Date Author Status No 07/12/2023 6:58 PM IMAGING AIDE Liliana Gutierrez, RN Active documented in this encounter Plan of Treatment Upcoming Encounters Date Type Department Care Team (Late st Contact Info) Description 09/25/2024 2:[address] [facility] [address] [place] [address] Zayra Powell, MANAGER PSYCHIATRY [address] [facility] [place] [address] 10/16/2024 3:30 PM IMAGING AIDE Office Visit [facility] [address] [place] [address] Brit Gonzáles MD [address] [place] [address] documented as of this encounter [...] documented as of this encounter Care Teams Kiln Hand Relationship Specialty Start Date End Date Megan Infante MD [address] [facility] [place] [address] PCP - General FAMILY PRACTICE 04/06/16 Piyush Pandey MD [address] Light Lamp Cleaner CARDIOVASCULAR DISEASE 04/06/16 12/28/23 Sharmila Davis APRN, PAPER AND PULP MILL OPERATOR-C [address] [place] [address] [address] [place] [address] NURSE PRACTITIONER 01/04/17 04/03/24 Zaki Ortiz MD [address] [facility] [address] [place] [address] Consulting Physician PULMONARY DISEASE 07/12/19 Concetta Acevedo MD [address] [place] [address]50[address] Surgeon NEUROLOGICAL SURGERY 12/16/22 Jeff Grace MD [address] [place] [address] Consulting Physician INTERNAL MEDICINE 02/11/23 documented as of this encounter
--- OUTSIDE RECORDS SUMMARY | 2024-09-03 19:08 | XMS_ITS | Encounter Summary ---
Author Organization [facility] Address [facility] [place] [address] [place] [address] Care Team Providers Care Criminal Investigative Agent Name Role Phone Megan Infante MD Primary Care Provider [phone] Sharmila Davis APRN, NP-C Unavailable [phone] Zaki Ortiz MD Unavailable [phone] Concetta Acevedo MD Unavailable + [phone] Jeff Grace MD Unavailable Brit oGnzáles MD Unavailable Reason for Visit * Reason Onset Date Comments Appointment Reminder 03/31/2024 Encounter Details Date Type Department Care Team (Late st Contact Info) Description 03/31/[address] [facility] [address] [place] [address] Brit Gonzáles MD [address] [place] [address] Appointment Reminder Social History Tobacco Use Types Packs/Day Years Used Date Smoking Tobacco: Former Smokeless Tobacco: Former Chew Alcohol Use Standard Drinks/Week Comments Yes 0 (1 standard drink = 0.6 oz pur e alcohol) 4 beers per week [facility] Utilities Answer Date Recorded In the past [...] declined 02/16/2023 How often do you attend orthodoxy or lutheran serv ices? Patient declined 02/16/2023 Do you belong to any clubs o r organizations such as orthodoxy groups, unions, fraternal or athletic groups, or [...] move on to questions 3-9 0 12/01/2021 [facility] [place] [facility] Occupat ional Health - Occupational Stress [...] encounter Progress Notes * Fina Alexandra - 03/31/2024 2:05 PM CDT Left message for patient reminding of appt Wednesday with Dr. Gonzáles in [place]. Asked patient to return call if needing to cancel or r/s. documented in this encounter Plan of Treatment Upcoming Encounters Date Type Department Care Team (Late st Contact Info) Description 09/25/2024 2:00 PM LIFE SCIENCE RESEARCH ASSISTANT Appointment [facility] [address] [place] [address] Zayra Powell, [facility] [address] [place] [address] 10/16/2024 3:30 PM LIFE SCIENCE RESEARCH ASSISTANT Office Visit [facility] [address] [place] [address] Brit Gonzáles MD [address] [place] [address] documented as of this encounter Goals Goal [...] documented as of this encounter Care Teams Criminal Investigative Agent Relationship Specialty Start Date End Date Megan Infante MD [address] [facility] [place] [address] PCP - General FAMILY PRACTICE 04/06/16 Sharmila Davis, HOSPITALITY SERVICES MANAGER, YARD HOSTLER-C [address] [place] [address] NURSE PRACTITIONER 01/04/17 04/03/24 Zaki Ortiz MD [address] [place] [address] Consulting Physician PULMONARY DISEASE 07/12/19 Concetta Acevedo MD [address] [place] [address] Surgeon NEUROLOGICAL SURGERY 12/16/22 Jeff Grace MD [address] [place] [address] 013821 Consulting Physician INTERNAL MEDICINE 02/11/23 Brit Gonzáles MD [address] [place] [phone] Consulting Physician CARDIOVASCULAR DISEASE 12/29/23 documented as of this encounter
--- OUTSIDE RECORDS SUMMARY | 2024-09-03 19:08 | XMS_ITS | Encounter Summary ---
Author Organization [facility] Address [facility], [id number] [place] [address] [place] [address] Care Team Providers Care Cager Operator Name Role Phone Megan Infante MD Primary Care Provider [phone] Sharmila Davis APRN, NP-C Unavailable [phone] Zaki Ortiz MD Unavailable [phone] Concetta Acevedo MD Unavailable + [phone] Jeff Grace MD Unavailable Brit Gonzáles MD Unavailable Encounter Details Date Type Department Care Team (Late st Contact Info) Description 03/20/2024 12:53 PM CDT - 03/20/2024 11:59 PM CDT Hospital Encounter [facility] [address] [place] [address] Zayra Powell, [facility] [address] [place] [address] Discharge Disposition: Home or Self Care (Routine Discharge) Social History Tobacco Use Types Packs/Day Years Used Date Smoking Tobacco: Former Smokeless Tobacco: Former Chew Alcohol Use Standard Drinks/Week Comments Yes 0 (1 standard drink = 0.6 oz pur e alcohol) 4 beers per week [facility] Utilities Answer Date Recorded In the past 12 months has [employer] electric, gas, oil, or water company threatened [...] How often do you attend synagogue or holiness serv ices? Patient declined 02/16/2023 [...] move on to questions 3-9 0 12/01/2021 [facility] Occupat ional Health - [...] (25 mg total) by mouth daily. 10/31/2022 levoFLOXacin (LEVAQUIN) 500 MG tabletIndications:P seudomonas infection Take 1 tablet (500 mg total) by mouth daily for 14 days. 14 tablet 03/09/2024 4 metFORMIN (GLUCOPHAGE) 500 MG tablet Take [...] Progress Notes * Mary Moore RN - 03/20/2024 1:00 PM CDTEncounter addended by: Mary Moore RN on: 03/20/2024 3:30 PM Actions taken: MAR administration accepted documented in this encounter Plan of Treatment Upcoming Encounters Date Type Department Care Team (Late st Contact Info) Description 09/25/2024 2:00 PM OEM SALES MANAGER Appointment 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 [address] [place] [address] NURSE PRACTITIONER 01/04/17 04/03/24 Zaki Ortiz MD [address] [facility] [address] [place] [address] Consulting Physician PULMONARY DISEASE 07/12/19 Concetta Acevedo MD [address] [place] [address] Surgeon NEUROLOGICAL SURGERY 12/16/22 Jeff Grace MD [address] [place] [address] Consulting Physician INTERNAL MEDICINE 02/11/23 Brit Gonzáles MD [address] [place] [address] Consulting Physician CARDIOVASCULAR DISEASE 12/29/23 documented as of this encounter
--- OUTSIDE RECORDS SUMMARY | 2024-09-03 19:08 | XMS_ITS | Encounter Summary ---
Author Organization [facility] Address [address] [place] [address]. [place] [address] [place] [address] Care Team Providers Care Work Counselor Name Role Phone Piyush Pandey MD Unavailable Unavailabl e Megan Infante MD Primary Care Provider [phone] Sharmila Davis APRN, NP-C Unavailable Zaki Ortiz MD Unavailable [phone] Concetta Acevedo MD Unavailable + [phone] Jeff Grace MD Unavailable Encounter Details Date Type Department Care Team (Late st Contact Info) Description 08/10/2023 11:00 AM PROPELLER ENGINEER - 08/10/2023 11:27 AM [facility] Encounter [facility] [address] [place] [address] Zayra Powell, [facility] [address] [place] [address] Discharge Disposition: Home or Self Care (Routine Discharge) Social History Tobacco Use Types Packs/Day Years Used Date Smoking Tobacco: Former Smokeless Tobacco: Former Chew Alcohol Use Standard Drinks/Week Comments Yes 0 (1 standard drink = 0.6 oz pur e alcohol) 6 beers per week [facility] Utilities Answer Date Recorded In the [...] declined 02/16/2023 How often do you attend religious or christianity serv ices? Patient declined 02/16/2023 Do you belong to any clubs o r organizations such as religious groups, unions, fraternal or athletic groups, or [...] move on to questions 3-9 0 12/01/2021 [facility] of Occupat ional Health - Occupational [...] by mouth 2 (two) times daily. 10/09/2022 cyclobenzaprine (FLEXERIL) 10 MG tablet Take 1 [...] st Contact Info) Description 09/25/2024 2:00 PM PROPELLER ENGINEER Appointment [facility] [address] [place] [address] Zayra Powell, TOE PUNCHER [address] [place] [address] 10/16/2024 3:30 PM PROPELLER ENGINEER Office Visit [facility] [address] [place] [phone] Brit Gonzáles MD [address] [place] [address] documented as of this encounter Goals Goal [...] documented as of this encounter Care Teams Work Counselor Relationship Specialty Start Date End Date Megan Infante MD [address] [place] [address] PCP - General FAMILY PRACTICE 04/06/16 Piyush [place] MD [place] Man CARDIOVASCULAR DISEASE 04/06/16 12/28/23 Sharmila Davsi APRN, PARK AIDE-C [address] [address] NURSE PRACTITIONER 01/04/17 04/03/24 Zaki Ortiz MD [address] [place] [address] Consulting Physician PULMONARY DISEASE 07/12/19 Concetta Acevedo MD [address] [place] [address] Surgeon NEUROLOGICAL SURGERY 12/16/22 Jeff Grace MD [address] [place] [phone] Consulting Physician INTERNAL MEDICINE 02/11/23 documented as of this encounter
--- OUTSIDE RECORDS SUMMARY | 2024-09-03 19:08 | XMS_ITS | Encounter Summary ---
Author Organization [facility] Address [facility]. [place], [place] [address] [place] [address] Care Team Providers Care Professor Of Latin American Studies Name Role Phone Megan Infante MD Primary Care Provider [phone] Sharmila Davis APRN, NP-C Unavailable [phone] Zaki Ortiz MD Unavailable [phone] Concetta Acevedo MD Unavailable [phone] Jeff Grace MD Unavailable Brit Gonzáles MD Unavailable Reason for Referral * Imaging (Routine) - Closed Specialty Diagnoses / Procedures Referred By Yung sequeira Referred To Contact RADIOLOGY Diagnoses Dyspnea on exertion Procedures USE ECHOCARDIOGRAM Brit Gonzáles MD [address] [place] [address] Phone: tel: fax: Referral ID Status Reason Start Date Expiration Date Visits Re quested Visits Authorized [id number] Closed 01/31/2024 01/30/2025 1 1 * Imaging (Routine) - Closed Specialty Diagnoses / Procedures Referred By Yung sequeira Referred To Contact RADIOLOGY Diagnoses Dyspnea on exertion Procedures NM PHARM NUC STRESS TEST 1DBrit Hudson MD [address] [place] [address] Phone: tel: fax: Referral ID Status Reason Start Date Expiration Date Visits Re quested Visits Authorized [id number] Closed 01/31/2024 03/02/2025 4 4 Reason for Visit * Imaging (Routine) - Closed Specialty Diagnoses / Procedures Referred By Contac t Referred To Contact RADIOLOGY Diagnoses Dyspnea on exertion Procedures NM PHARM NUC STRESS TEST 1DAY Brit Gonzáles MD [address] [place] [address] Phone: tel: fax: Referral ID Status Reason Start Date Expiration Date Visits Re quested Visits Authorized [id number] Closed 01/31/2024 03/02/2025 4 4 Encounter Details Date Type Department Care Team (Latest Contact Info) Description 03/15/2024 7:45 AM CDT - 03/15/2024 7:46 AM CDT Hospital Encounter [facility] [address] [place] [address] [place] [address] Brit Gonzláes MD [address] [place] [address] Discharge Disposition: Home or Self Care (Routine Discharge) Social History Tobacco Use Types Packs/Day Years Used Date Smoking Tobacco: Former Smokeless Tobacco: Former Chew Alcohol Use Standard Drinks/Week Comments Yes 0 (1 standard drink = 0.6 oz pur e alcohol) 4 beers per week [facility] Utilities Answer Date Recorded In the past 12 months has [facility] [employer], [employer], oil, or water [employer] threatened to shut off services in your [...] declined 02/16/2023 How often do you attend latter day or baptist serv ices? Patient declined 02/16/2023 Do you belong to any clubs o r organizations such as latter day groups, unions, fraNadanu or athletic groups, or school groups? Patient [...] move on to questions 3-9 0 12/01/2021 [facility] - Occupational [...] mouth 2 (two) times daily. 60 tablet 01/31/2024 sertraline 50 MG tablet Take 1 [...] st Contact Info) Description 09/25/2024 2:00 PM FILLER BLENDER Appointment [facility] [address] [place] [address] Zayra Powell, CATALYST OPERATOR [address] [place] [address] 10/16/2024 3:30 PM FILLER BLENDER Office Visit [facility] [address] [place] [address] Brit Gonzáles MD [address] [place] [address] documented as of this encounter Goals Goal Patient Goal Type Associated Problems Recent Progress Patient-Stated? Author Family - family caregiver with be involved in care transitions and discharge planning Lifestyle Karen Diane RN documented as of this encounter Procedures Procedure Name Priority Date/Time Associated Diagnosis Comments USE ECHOCARDIOGRAM Routine 03/15/2024 11 :17 AM CDT Dyspnea on exertion NM PHARM NUC STRESS TEST 1DAY W TRACING Routine 03/15/2024 11:13 AM CDT Dyspnea on exertion documented in this encounter Results * USE ECHOCARDIOGRAM (03/15/2024 11:17 AM CDT) Anatomical Region Laterality Modality Cardiac Ultrasound 03/15/2024 10:2 9 AM CDT Narrative 03/17/2024 7:26 AM CDT ?Echocardiography Report Pat.Name: ??Mendez Lay ?Pat.ID: ?[id number] ? St.Date: ?? 03/15/2024 ? Refer.MD: ??[facility] Exam Time: 10:29:00 AM ? Study Type:OUTREACH ? Height: ?66 in ? Weight: ?220 lb ? BSA: ? 2.08 m2 ?Age: ??1955,68Y ? Sex: ? M ? Sonogrphr: Am ? Pat. Stat.:Outpatient ? Reason for Study:Dyspnea on exertion Procedures: Study performed at [place], [place] and interpreted by [facility]. 2D, M-mode, Doppler, Color Flow, Myocardial contrast was used to enhance endocardial definition. ++++++++++++++++++++++++++++++++++++ SUMMARY: ++++++++++++++++++++++++++++++++++++ The left ventricular size is normal. Estimated [...] regurgitation. Mild mitral regurgitation. Mild tricuspid regurgitation. ++++++++++++++++++++++++++++++++++++ FINDINGS: ++++++++++++++++++++++++++++++++++++ LV: ? The left ventricular size is normal. The left ventricular ?systolic function is depressed. Estimated left ventricular ?ejection fraction is 40-45%. There is no left ventricular ?hypertrophy. The average E/e' is >14. Left ventricular ?diastolic function is not accessible due to atrial ?fibrillation. WM: ? Moderate global hypokinesis is noted. RV: ? The right ventricular size is mildly enlarged. Right ?ventricular systolic function is not assessable. Right ?ventricular systolic pressure is 75 mmHg. LA: ? The left atrial size is severely enlarged. RA: ? Right atrial size is mild to moderately enlarged. SVn: ?Inferior vena cava is moderately enlarged. Inferior vena ?cava shows <50% collapse with respiration consistent with ?elevated right atrial pressure. AV: ? No evidence of ting-prosthetic aortic valve regurgitation. ?No evidence of central prosthetic aortic valve ?regurgitation. Dimensionless index of .29. Bioprosthetic ?aortic valve with a peak gradient of 31 mmHg (mean gradient ?18 mmHg). MV: ? Mild mitral regurgitation. Calcified posterior mitral ?annulus. Mild calcification of mitral valve leaflets. PV: ? Pulmonic valve not well visualized. TV: ? Mild tricuspid regurgitation. <Electronic Signature> 03/17/2024 07:26 AM Brit Gonzáles M.D. Procedure Note Brit Gonzáles MD - 03/17/2024 Echocardiography Report Pat.Name: Mendez Lay Dariana.ID: [id number] .Date: 03/15/2024 Refer.MD: Marco A, [facility] Exam Time: 10:29:00 AM Study Type:[facility] Height: 66 in Weight: 220 lb BSA: 2.08 m2 Age: 11 1955,68Y Sex: M Sonogrphr: Am Pat. Stat.:Outpatient Reason for Study:Dyspnea on exertion Procedures: Study performed at [place], [place] and interpreted by [facility]. 2D, M-mode, Doppler, Color Flow, Myocardial contrast was used to enhance endocardial definition. ++++++++++++++++++++++++++++++++++++ SUMMARY: ++++++++++++++++++++++++++++++++++++ The left ventricular size is normal. Estimated [...] regurgitation. Mild mitral regurgitation. Mild tricuspid regurgitation. ++++++++++++++++++++++++++++++++++++ FINDINGS: ++++++++++++++++++++++++++++++++++++ LV: The left ventricular size is normal. The left ventricular systolic function is depressed. Estimated left ventricular ejection fraction is 40-45%. There is no left ventricular hypertrophy. The average E/e' is >14. Left ventricular diastolic function is not accessible due to atrial fibrillation. WM: Moderate global hypokinesis is noted. RV: The right ventricular size is mildly enlarged. Right ventricular systolic function is not assessable. Right ventricular systolic pressure is 75 mmHg. LA: The left atrial size is severely enlarged. RA: Right atrial size is mild to moderately enlarged. SVn: Inferior vena cava is moderately enlarged. Inferior vena cava shows <50% collapse with respiration consistent with elevated right atrial pressure. AV: No evidence of ting-prosthetic aortic valve regurgitation. No evidence of central prosthetic aortic valve regurgitation. Dimensionless index of .29. Bioprosthetic aortic valve with a peak gradient of 31 mmHg (mean gradient 18 mmHg). MV: Mild mitral regurgitation. Calcified posterior mitral annulus. Mild calcification of mitral valve leaflets. PV: Pulmonic valve not well visualized. TV: Mild tricuspid regurgitation. <Electronic Signature> 03/17/2024 07:26 AM Brit Gonzáles M.D. us Brit Gonzáles MD ECHO Final Result * NM PHARM NUC STRESS TEST 1DAY (03/15/2024 11:13 AM CDT) Anatomical Region Laterality Modality Cardiac Nuclear Medicine 03/15/2024 8:40 AM CDT Narrative 03/17/2024 7:29 AM CDT ?MYOCARDIAL PERFUSION SCAN ? Pat.Name: ??Mendez Lay ?Pat.ID: ?[id number] ? St.Date: ?? 03/15/2024 ? Refer.MD: ??[facility] Exam Time: 8:40:00 AM ?Study Type:[place] OUTREACH ? Height: ?66 in ? Weight: ?222 lb ? BSA: ? 2.09 m2 ?Age: ??1955,68Y ? Sex: ? M ? Sonogrphr: Terrance Prabhakar, TMH TEACHER ? Pat. Stat.:Outpatient ? Reason for Study:Dyspnea on exertion Procedures: Study performed at [place], [place] and interpreted by [facility]. Regadenoson Stress, Stress Gated SPECT, Rest SPECT Risk Factors:Diabetes, Hypertension ++++++++++++++++++++++++++++++++++++ SUMMARY: ++++++++++++++++++++++++++++++++++++ Probably Normal Perfusion Study. No evidence of ischemia. There is evidence of a small area of mild intensity fixed defect consistent with infarction or attenuation in the mid inferolateral wall. There is post stress normal wall motion in all knox. Left ventricular EF is 53 %. The study quality is good. ++++++++++++++++++++++++++++++++++++ FINDINGS: ++++++++++++++++++++++++++++++++++++ Stress Findings: Negative electrocardiographic portion of regadenoson ?stress test. Impr: ? Probably Normal Perfusion Study. There is evidence of a ?small area of mild intensity fixed defect consistent with ?infarction or attenuation in the mid inferolateral wall. Transient Ischemic Dilatation: The TID is 1.07. LV Perfusion Results: There is a mild mid inferolateral perfusion ?defect during stress and rest.There is a normal apical ?lateral perfusion during stress which worsens ?with rest. Gated SPECT Results: Left ventricular EF is 53 %. There is post stress ?normal wall motion in all knox. Study Quality/Artifacts: The study quality is good. ++++++++++++++++++++++++++++++++++++ STRESS: ++++++++++++++++++++++++++++++++++++ Baseline Vital Signs: HR: ?79 bmp ?Rest BP: ?? 112/68 Regadenoson ? Peak Dose: 0.4 mg Stress Test Results: ? Target HR: 151 bmp Symptoms and Complications: Reason for Stopping Test: Protocol completed Stress Induced Symptoms: None <Electronic Signature> 03/17/2024 07:29 AM Brit Gonzáles M.D. Procedure Note Brit Gonzáles MD - 03/17/2024 MYOCARDIAL PERFUSION SCAN Pat.Name: Mendez Lay Pat.ID: [id number] .Date: 03/15/2024 Refer.MD: Marco A, [facility] Exam Time: 8:40:00 AM Study Type:[facility] Height: 66 in Weight: 222 lb BSA: 2.09 m2 Age: 12 1955,68Y Sex: M Sonogrphr: PARIS Sims Pat. Stat.:Outpatient Reason for Study:Dyspnea on exertion Procedures: Study performed at [place], [place] and interpreted by [facility]. Regadenoson Stress, Stress Gated SPECT, Rest SPECT Risk Factors:Diabetes, Hypertension ++++++++++++++++++++++++++++++++++++ SUMMARY: ++++++++++++++++++++++++++++++++++++ Probably Normal Perfusion Study. No evidence of ischemia. There is evidence of a small area of mild intensity fixed defect consistent with infarction or attenuation in the mid inferolateral wall. There is post stress normal wall motion in all knox. Left ventricular EF is 53 %. The study quality is good. ++++++++++++++++++++++++++++++++++++ FINDINGS: ++++++++++++++++++++++++++++++++++++ Stress Findings: Negative electrocardiographic portion of regadenoson stress test. Impr: Probably Normal Perfusion Study. There is evidence of a small area of mild intensity fixed defect consistent with infarction or attenuation in the mid inferolateral wall. Transient Ischemic Dilatation: The TID is 1.07. LV Perfusion Results: There is a mild mid inferolateral perfusion defect during stress and rest.There is a normal apical lateral perfusion during stress which worsens with rest. Gated SPECT Results: Left ventricular EF is 53 %. There is post stress normal wall motion in all knox. Study Quality/Artifacts: The study quality is good. ++++++++++++++++++++++++++++++++++++ STRESS: ++++++++++++++++++++++++++++++++++++ Baseline Vital Signs: HR: 79 bmp Rest BP: 112/68 Regadenoson Peak Dose: 0.4 mg Stress Test Results: Target HR: 151 bmp Symptoms and Complications: Reason for Stopping Test: Protocol completed Stress Induced Symptoms: None <Electronic Signature> 03/17/2024 07:29 AM Brit Gonzáles M.D. Brit Gonzáles MD [facility] Final Result documented in this encounter Visit Diagnoses Diagnosis Dyspnea on exertion Other dyspnea and respiratory abnormality documented in this encounter Administered Medications Inactive Administered Medications - up to 3 most recent administrations Medication Order MAR Action Action Date Dose Rate Site regadenoson (LEXISCAN) injection 0.4 mg 0.4 mg, Intravenous, Once, 1 dose, On Wed03/15/24 at 0900, Administer over 10 seconds Given 03/15/2024 9:15 AM CDT 0.4 mg technetium Tc 99M sestamibi (CARDIOLITE) radio-isotope injection 10.8 millicurie 10.8 millicurie, Intravenous, Once, 1 dose, On Wed03/15/24 at 0800, RADIOPHARMACEUTICAL: Use appropriate precautions for handling & disposal. Follow appropriate safety measures to minimize radiation exposure during administration; use waterproof gloves & effective shielding, including syringe garcia. Given 03/15/2024 7:55 AM CDT 10.8 millicuries technetium Tc 99M sestamibi (CARDIOLITE) radio-isotope injection 31.8 millicurie 31.8 millicurie, Intravenous, Once, 1 dose, On Wed03/15/24 at 0915, RADIOPHARMACEUTICAL: Use appropriate precautions for handling & disposal. Follow appropriate safety measures to minimize radiation exposure during administration; use waterproof gloves & effective shielding, including syringe garcia. Given 03/15/2024 9:15 AM CDT 31.8 millicuries documented in this encounter Additional Health Concerns Assessment Noted Time PHQ-9 Depression Total Score: 0 12/02/19 22 1:18 PM CDT documented as of this encounter Care Teams Professor Of Latin American Studies Relationship Specialty Start Date End Date Megan Infante MD [address] [place] [phone] PCP - General FAMILY PRACTICE 04/06/16 Sharmila Davis APRN, STAFFING CLERK-C [address] [facility] [address] [place] [address] NURSE PRACTITIONER 01/04/17 04/03/24 Zaki Ortiz MD [address] [facility] [address] [place] [address] Consulting Physician PULMONARY DISEASE 07/12/19 Concetta Acevedo MD [address] [place] [address] Surgeon NEUROLOGICAL SURGERY 12/16/22 Jeff Grace MD [address] [place] [address] Consulting Physician INTERNAL MEDICINE 02/11/23 Brit Gonzáles MD [address], [place] [phone] Consulting Physician CARDIOVASCULAR DISEASE 12/29/23 documented as of this encounter
--- OUTSIDE RECORDS SUMMARY | 2024-09-03 19:08 | XMS_ITS | Encounter Summary ---
Author Organization [facility] Address [facility] [place] [address] [place] [address] Care Team Providers Care Hand Model Name Role Phone Megan Infante MD Primary Care Provider [phone] Sharmila Davis APRN, NP-C Unavailable Zaki Ortiz MD Unavailable [phone] Concetta Acevedo MD Unavailable [phone] Jeff Grace MD Unavailable Jayce Younger MD Unavailable Encounter Details Date Type Department Care Team (Latest Contact Info) Description 01/31/2024 10:45 AM CDT - 01/31/2024 11:59 PM CDT Hospital Encounter [facility] [address] [place] [address] Jayce Younger MD [address] [place] [address] Discharge Disposition: Home or Self Care (Routine Discharge) Social History Tobacco Use Types Packs/Day Years Used Date Smoking Tobacco: Former Smokeless Tobacco: Former Chew Alcohol Use Standard Drinks/Week Comments Yes 0 (1 standard drink = 0.6 oz pur e alcohol) 4 beers per week [facility] Utilities Answer Date Recorded In the past 12 months has [employer] electric, gas, oil, or water company threatened [...] declined 02/16/2023 How often do you attend zoroastrian or bahai serv ices? Patient declined 02/16/2023 Do you belong to any clubs o r organizations such as zoroastrian groups, unions, fraternal or athletic groups, or [...] move on to questions 3-9 0 12/01/2021 [facility] - [...] a jail (including now)? Patient declined 07/12/2023 Sex and [...] st Contact Info) Description 09/25/2024 2:00 PM VETERANS REHABILITATION COUNSELOR Appointment [facility] [address] [place] [address] Zayra Powell, [facility] [address] [place] [address] 10/16/2024 3:30 PM VETERANS REHABILITATION COUNSELOR Office Visit [facility] [address] [place] [address] Jayce Younger MD [address] [place] [address] documented as of this encounter Goals Goal Patient Goal Type Associated Problems Recent Progress Patient-Stated? Author Family - family caregiver with be involved in care transitions and discharge planning Lifestyle No Karen Quezada RN documented as of this encounter Procedures Procedure Name Priority Date/Time Associated Diagnosis Comments ECG 12-LEAD Routine 01/31/2024 11:11 AM CDT Chronic combined systolic and diastolic congestive heart failure (CMS/HCC HHS/HCC) documented in this encounter Results * ECG 12 lead (HOSPITAL PERFORMED ONLY) (01/31/2024 11:11 AM CDT) 01/31/2024 11:1 1 AM CDT Narrative [facility] - 02/01/2024 6:16 AM CDT ? [facility] ?[address] [place], [place] ??[address] ? Test Date: ?2024-01-31 Pat Name: ? OBIE SIMS ?Department: ?? 3 ? Room: ? Gender: ? Male ? Almond Blancher Hand: ?? : ?1955 ? Requested By: JAYCE YOUNGER Order Number: [id number] ? Reading MD: ?? Jayce Younger ? Measurements Intervals ?[place] ? Rate: ? 71 ? P: ? MI: ? 0 ?QRS: ?101 QRSD: ? 135 ?T: ?259 QT: ? 406 ? QTc: ?441 ? Interpretive Statements ATRIAL FIBRILLATION INTRAVENTRICULAR CONDUCTION DELAY POSSIBLE RIGHT VENTRICULAR HYPERTROPHY Procedure Note Jayce Younger MD - 02/01/[address] [place] [address] Test Date: 2024-01-31 Pat Name: OBIE SIMS Department: 3 Room: Gender: Male Almond Blancher Hand: : 1955 Requested By: JAYCE YOUNGER Order Number: [id number] Reading MD: Jayce Younger Measurements Intervals [place] Rate: 71 P: MI: 0 QRS: 101 QRSD: 135 T: 259 QT: 406 QTc: 441 Interpretive Statements ATRIAL FIBRILLATION INTRAVENTRICULAR CONDUCTION DELAY POSSIBLE RIGHT VENTRICULAR HYPERTROPHY us Jayce Younger MD ECG ORDERABLES Final Result [facility] documented in this encounter Visit Diagnoses Diagnosis Chronic combined systolic and diastolic congestive heart failure (CMS/HCC HHS/HCC) Chronic combined systolic and diastolic heart failure documented in this encounter Additional Health Concerns Assessment Noted Time PHQ-9 Depression Total Score: 0 12/02/19 22 1:18 PM CDT documented as of this encounter Care Teams Hand Model Relationship Specialty Start Date End Date Megan Infante MD [address] [place] [address] [place] [phone] PCP - General FAMILY PRACTICE 04/06/16 Sharmila Davis APRN, CLAY MAKER-C [address] [place] [phone] NURSE PRACTITIONER 01/04/17 04/03/24 Zaki Ortiz MD [address] [place] [phone] Consulting Physician PULMONARY DISEASE 07/12/19 Concetta Acevedo MD [address] [place] [address] Surgeon NEUROLOGICAL SURGERY 12/16/22 Jeff Grace MD [address] [place] [address] Consulting Physician INTERNAL MEDICINE 02/11/23 Jayce Younger MD [address] [place] [phone] Consulting Physician CARDIOVASCULAR DISEASE 12/29/23 documented as of this encounter
--- OUTSIDE RECORDS SUMMARY | 2024-09-03 19:08 | XMS_ITS | Encounter Summary ---
Author Organization [facility] Address [facility] [place] [address] [place] [address] Care Team Providers Care Siding Mechanic Name Role Phone Piyush Pandey MD Unavailable Unavailabl Megan Leos MD Primary Care Provider [phone] Sharmila Davis APRN, NP-C Unavailable [phone] Zaki Ortiz MD Unavailable [phone] Concetta Acevedo MD Unavailable [phone] Jeff Grace MD Unavailable Reason for Referral * Imaging (Emergency) - Closed Specialty Diagnoses / Procedures Referred By Yung sequeira Referred To Contact RADIOLOGY Diagnoses Rt flank pain Procedures CT ABD+PEL WO CON Megan Infante MD [address] [place] [address] Phone: tel: fax: Referral ID Status Reason Start Date Expiration Date Visits Re quested Visits Authorized [id number] Closed CT 11/17/2023 11/17/2024 1 1 Reason for Visit * Imaging (Emergency) - Closed Specialty Diagnoses / Procedures Referred By Yung sequeira Referred To Contact RADIOLOGY Diagnoses Rt flank pain Procedures CT ABD+PEL WO CON Megan Infante MD [address] [place] [address] Phone: tel: fax: Referral ID Status Reason Start Date Expiration Date Visits Re quested Visits Authorized [id number] Closed CT 11/17/2023 11/17/2024 1 1 Encounter Details Date Type Department Care Team (Late st Contact Info) Description 11/17/2023 2:49 PM CDT - 11/17/2023 11:59 PM CDT Hospital Encounter [facility] [address] [place] [address] Megan Infante MD [address] [place] [address] Discharge Disposition: Home or Self Care (Routine Discharge) Social History Tobacco Use Types Packs/Day Years Used Date Smoking Tobacco: Former Smokeless Tobacco: Former Chew Alcohol Use Standard Drinks/Week Comments Yes 0 (1 standard drink = 0.6 oz pur e alcohol) 6 beers per week [facility] Utilities Answer Date Recorded In the past 12 months has [employer]), gas, oil, or water [employer] threatened to shut off services in your [...] declined 02/16/2023 How often do you attend yarsanism or catholic serv ices? Patient declined 02/16/2023 Do you belong to any clubs o r organizations such as yarsanism groups, unions, fraternal or athletic groups, or [...] to questions 3-9 0 12/01/2021 [facility] - [facility] [...] (50 mg total) by mouth daily. 03/30/2023 metFORMIN (GLUCOPHAGE) 500 MG tablet Take 1 [...] Contact Info) Description 09/25/2024 2:00 PM COMMERCIAL LOAN CLOSER Appointment [facility] [address] [place] [address] Andre Zayra Oli, ENTERPRISE SERVICES MANAGER [address] [place] [address] 10/16/2024 3:30 PM COMMERCIAL LOAN CLOSER Office Visit [facility] [address] [place] [address] Brit Gonzáles MD [address] [place] [address] documented as of this encounter Goals Goal Patient Goal Type Associated Problems Recent Progress Patient-Stated? Author Family - family caregiver with be involved in care transitions and discharge planning Lifestyle No Karen Quezada RN documented as of this encounter Procedures Procedure Name Priority Date/Time Associated Diagnosis Comments CT ABD+PEL WO CON STAT 11/17/2023 3:0 8 PM CDT Rt flank pain documented in this encounter Results * CT ABD+PEL WO CON (11/17/2023 3:08 [...] aorta. ??Possible left renal artery origin stenosis. ??KENIA stenosis. Diffuse fatty infiltration of an normal [...] the aorta.Possible left renal artery origin stenosis. KENIA stenosis. Diffuse fatty infiltration of an normal [...] By: David Alcantara MD, 11/17/2023 4:16 PM Megan Infante MD CT Final Result documented in this encounter Visit Diagnoses Diagnosis Rt flank pain Abdominal pain, unspecified site documented in this encounter Additional Health Concerns Assessment Noted Time PHQ-9 Depression Total Score: 0 12/02/19 22 1:18 PM CDT documented as of this encounter Care Teams Siding Mechanic Relationship Specialty Start Date End Date Megan Infante MD [address] [place] [address] PCP - General FAMILY PRACTICE 04/06/16 Piyush Pandey MD [place] Senior Librarian CARDIOVASCULAR DISEASE 04/06/16 12/28/23 Sharmila Davis, APPLICATIONS SCIENTIST, RESEARCH TECH-C [address] [facility] [address] [place] [address] NURSE PRACTITIONER 01/04/17 04/03/24 Zaki Ortiz MD [address] [facility] [address] [place] [address] Consulting Physician PULMONARY DISEASE 07/12/19 Concetta Acevedo MD [address] [place] [address] Surgeon NEUROLOGICAL SURGERY 12/16/22 Jeff Grace MD [address] [place] [address] Consulting Physician INTERNAL MEDICINE 02/11/23 documented as of this encounter
--- OUTSIDE RECORDS SUMMARY | 2024-09-03 19:08 | XMS_ITS | Encounter Summary ---
Author Organization [facility] Address [facility] [place] [facility]6 [facility] [place], [place] [address] [place] [address] Care Team Providers Care Pantograph Operator Name Role Phone Megan Infante MD Primary Care Provider [phone] Sharmila Davis APRN, NP-C Unavailable [phone] Zaki Ortiz MD Unavailable [phone] Concetta Acevedo MD Unavailable [phone] Jeff Grace MD Unavailable Brit Gonzáles MD Unavailable Reason for Referral * Imaging (Routine) - Closed Specialty Diagnoses / Procedures Referred By Yung sequeira Referred To Contact RADIOLOGY Diagnoses Dyspnea on exertion Procedures NM PHARM NUC STRESS TEST 1DAY Brit Gonzáles MD [address] [place] [address] Phone: tel: fax: Referral ID Status Reason Start Date Expiration Date Visits Re quested Visits Authorized [id number] Closed 01/31/2024 03/02/2025 4 4 * Imaging (Routine) - Closed Specialty Diagnoses / Procedures Referred By Yung sequeira Referred To Contact RADIOLOGY Diagnoses Dyspnea on exertion Procedures USE ECHOCARDIOGRAM Brit Gonzáles MD [address] [place] [address] Phone: tel: fax: Referral ID Status Reason Start Date Expiration Date Visits Re quested Visits Authorized [id number] Closed 01/31/2024 01/30/2025 1 1 * Medication Prior Authorization - Authorized Specialty Diagnoses / Procedures Referred By Contac t Referred To Contact Diagnoses Chronic combined systolic and diastolic congestive heart failure ([facility]/HCC) Brit Gonzáles MD [address] [place] [address] Phone: tel: fax: Referral ID Status Reason Start Date Expiration Date V isits Requested Visits Authorized [id number] Authorized 08/23/2023 08/22/2024 1 1 Reason for Visit * Reason Comments Heart Problem Encounter Details Date Type Department Care Team (Late st Contact Info) Description 01/31/2024 11:00 AM CDT Office Visit [facility] [place] [address] Brit Gonzáles MD [address] [place], [place] [id number] Heart Problem Social History Tobacco Use Types Packs/Day Years Used Date Smoking Tobacco: Former Smokeless Tobacco: Former Chew Tobacco Cessation:Counseling Given: Not Answered Alcohol Use Standard Drinks/Week Comments Yes 0 (1 standard drink = 0.6 oz pur e alcohol) 4 beers per week [facility] Utilities Answer Date Recorded In the past 12 months has [employer], [employer], or water [employer] threatened to shut off services in your [...] declined 02/16/2023 How often do you attend bahai or mormonism serv ices? Patient declined 02/16/2023 Do you belong to any clubs o r organizations such as bahai groups, unions, fraternal or athletic groups, or [...] move on to questions 3-9 0 12/01/2021 [facility] [...] Sign Reading Time Taken Comments Blood Pressure 125/84 01/31/2024 2:00 PM CDT Pulse 91 01/31/2024 2:00 PM CDT Temperature - - Respiratory Rate 20 01/31/2024 2:00 PM CDT Oxygen Saturation 95% 01/31/2024 2:00 PM CDT Inhaled Oxygen Concentration - - Weight 100.7 kg (222 lb) 01/31/2024 2:00 PM CDT Height 167.6 cm (5' 6 ) 01/31/2024 2:00 PM CDT Body Mass Index 35.83 01/31/2024 2:00 PM CDT documented in this encounter Functional [...] documented in this encounter Progress Notes * Chris Fernandez LPN - 01/31/2024 11:00 AM CDTAddended by: CHRIS FERNANDEZ on: 01/31/2024 02:31 PM Modules accepted: Orders * Brit Gonzáles MD - 01/31/2024 11:00 AM CDT Reason for Visit: Heart Problem History of Present Illness: Patient is seen in consultation for fluid overload. 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 He states he has had frequent hospitalizations for decompensated heart failure. Patient denies any chest pain but voices shortness of breath with minimal activity. He is in the office with a walking cane and in a wheelchair. He is unable to ambulate more than 25 to 50 feet before symptom onset. He denies any falls he deniesany palpitations. Patient has history of paroxysmal atrial fibrillation. He reports med compliance with no side effects. In office EKG was performed today which I personally reviewed it is notable for atrial fibrillation, at a rate of 71 and a blood pressure 125/84. Recommendations and Plan: Investigations: 08/14 labs: CR 1.71 01/12 TTE: EF [...] large OM1, 50% ostial RCA stenosis. 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 The etiology of his recurring decompensated CHF is unclear it may be arrhythmia induced versus ischemia driven. Patient's last ischemic eval was back in 2021 since then he has had a progressive cardiomyopathy with an EF of 37% per echo last year. Plan: DC losartan Start Entresto 2 2426 mg twice daily Check echo Check Gaye SPECT for BELLA (Please schedule both tests at [facility] on the same day) Check CMP and lipid panel in 2 weeks If above cardiac workup is unremarkable then we will assess arrhythmia burden to see CHF may be secondary to A-fib RTC in 6 weeks Greater than 50 minutes time was spent reviewing the patient's extensive medical records and history. Medications: Current Outpatient Medications: albuterol sulfate HFA [...] total) by mouth daily., Disp: , Rfl: losartan (COZAAR) 50 MG tablet, Take 1 tablet (50 [...] mouth nightly at bedtime., Disp: , Rfl: sertraline 50 MG tablet, Take 1 tablet [...] chronic heart failure, unspecified heart failure type ([facility] HHS/HCC) Anxiety Aortic valve stenosis Arthritis Asthma, mild persistent (HHS/HCC) 04/06/2021 Atrial fibrillation ([facility]) s/p PVI/[facility] 10/2015 Bilateral leg pain Carotid disease, bilateral ([facility]) CHF (congestive heart failure) ([facility]) Claudication ([facility]) COPD (chronic obstructive pulmonary disease) ([facility]) Coronary artery disease Diabetes mellitus, type II ([facility]) Edema 04/19/2018 2+ pitting History of blood transfusion Hyperlipidemia Hypertension LV dysfunction Osteoarthritis PAD (peripheral artery disease) ([facility]) Pneumonia Restless leg syndrome S/P aortic valve replacement with bioprosthetic valve 2013 SOB (shortness of breath) Stroke ([facility]) Varicose veins of bilateral lower extremities with other complications Weight gain with edema Past Surgical History: Procedure Laterality Date APPENDECTOMY CARDIAC VALVE REPLACEMENT 1999 CARDIAC VALVE REPLACEMENT 2013 CARDIOVERSION EXTERNAL 10/01/2015 CARDIOVERSION EXTERNAL 04/14/2012 COLONOSCOPY N/A 03/18/2021 COLONOSCOPY (Incomplete) performed by Kilo Navarro MD at [facility] OR COLONOSCOPY N/A 01/27/2022 COLONOSCOPY WITH COLD SNARE POLYPECTOMY performed by Kilo Navarro MD at [facility] OR HIP ARTHROPLASTY Left KNEE ARTHROPLASTY Bilateral [...] and new or significant memory loss. Vitals: 01/31/24 1400 BP: 125/84 Pulse: 91 Weight: 100.7 kg (222 lb) Height: 1.676 m (5' 6 ) Body mass index is 35.83 kg/m??. Cardiac Exam Rate/Rhythm: Normal rate and [...] Normal motor skills. Normal gait. Comments: Diagnoses/Impression: 1. Coronary artery disease involving [place] coronary artery of [place] heart without angina pectoris 2. S/P aortic valve replacement with bioprosthetic valve 3. Chronic atrial fibrillation ([facility]/HCC HHS/HCC) 4. Chronic combined systolic and diastolic congestive heart failure ([facility] HHS/HCC) Referring Provider: No ref. provider found PCP: MEGAN INFANTE MD documented in this encounter Plan of Treatment Upcoming Encounters Date Type Department Care Team (Late st Contact Info) Description 09/25/2024 2:00 PM STRUCTURAL STEEL WORKER Appointment [facility] [address] [facility] [place] [address] Zayra Powell, WATCH DIAL PRINTER [address] [place] [address] 10/16/2024 3:30 PM STRUCTURAL STEEL WORKER Office Visit [facility] [address] [place] [address] Brit Gonzáles MD [address] [place] [address] Scheduled Orders Name Type Priority Associated Diagnoses Orde r Schedule COMPREHENSIVE METABOLIC PANEL Lab Routine Mixed hyperlipidemia Expected: 02/14/2024, Expires: 01/30/2025 LIPID PANEL Lab Routine Mixed hyperlipidemia Expected: 02/14/2024, Expires: 01/30/2025 documented as of this encounter Goals Goal Patient Goal Type Associated Problems Recent Progress Patient-Stated? Author Family - family caregiver with be involved in care transitions and discharge planning Lifestyle No Karen Quezada RN documented as of this encounter Results * USE ECHOCARDIOGRAM (03/15/2024 11:17 AM CDT) Anatomical Region Laterality Modality Cardiac Ultrasound 03/15/2024 10:2 9 AM CDT Narrative 03/17/2024 7:26 AM CDT ?Echocardiography Report Pat.Name: ??Mendez Lay ?Pat.ID: ?[id number] ? St.Date: ?? 03/15/2024 ? Refer.MD: ??Outreach, Exam Time: 10:29:00 AM ? Study Type:OUTREACH ? Height: ?66 in ? Weight: ?220 lb ? BSA: ? 2.08 m2 ?Age: ??1955,68Y ? Sex: ? M ? Sonogrphr: Am ? Pat. Stat.:Outpatient ? Reason for Study:Dyspnea on exertion Procedures: Study performed at , [place], [place] and interpreted by [facility]. 2D, M-mode, Doppler, Color Flow, [...] MD - 03/17/2024 Echocardiography Report Pat.Name: Mendez Lay.ID: [id number] .Date: 03/15/2024 Refer.MD: Maldonado, Exam Time: 10:29:00 AM Study Type:[facility] Height: 66 in Weight: 220 lb BSA: 2.08 m2 Age: 12 1955,68Y Sex: M Sonogrphr: Amado [place]brook. Stat.:Outpatient Reason for Study:Dyspnea on exertion Procedures: Study performed at , [place], [place] and interpreted by [facility]. 2D, M-mode, Doppler, Color Flow, [...] PERFUSION SCAN ? Pat.Name: ??Mendez Lay ?Pat.ID: ?[id number] ? St.Date: ?? 03/15/2024 ? Refer.MD: ??Outreach, Exam Time: 8:40:00 AM ?Study Type:[place] OUTREACH ? Height: ?66 in ? Weight: ?222 lb ? BSA: ? 2.09 m2 ?Age: ??1955,68Y ? Sex: ? M ? Sonogrphr: Terrance Atalla, WIRE BASKET MAKER ? Pat. Stat.:Outpatient ? Reason for Study:Dyspnea on exertion Procedures: Study performed at , [place], [place] and interpreted by [facility]. Regadenoson Stress, Stress Gated SPECT, [...] MYOCARDIAL PERFUSION SCAN Pat.Name: Mendez Lay Pat.ID: [id number] .Date: 03/15/2024 Refer.MD: Maldonado, Exam Time: 8:40:00 AM Study Type:[facility] Height: 66 in Weight: 222 lb BSA: 2.09 m2 Age: 12 1955,68Y Sex: M Sonogrphr: PARIS Sims Pat. Stat.:Outpatient Reason for Study:Dyspnea on exertion Procedures: Study performed at [place], [place] and interpreted by [facility]. Regadenoson Stress, Stress Gated SPECT, [...] AM Brit Gonzáles M.D. Brit Gonzáles MD [facility] Final Result documented in this encounter Visit Diagnoses Diagnosis Coronary artery disease involving [place] coronary artery of [place] heart without angina pectoris- Primary S/P aortic valve replacement with bioprosthetic valve Heart valve replaced by other means Chronic atrial fibrillation ([facility] HHS/HCC) Atrial fibrillation Chronic combined systolic and diastolic congestive heart failure ([facility] H[facility]/HCC) Chronic combined systolic and diastolic heart failure Dyspnea on exertion Other dyspnea and respiratory abnormality Mixed hyperlipidemia Dyspnea on exertion Other dyspnea and respiratory abnormality documented in this encounter Additional Health Concerns Assessment Noted Time PHQ-9 Depression Total Score: 0 12/02/19 22 1:18 PM CDT documented as of this encounter Care Teams Pantograph Operator Relationship Specialty Start Date End Date Megan Infante MD [address] [facility] [place] [id number] PCP - General FAMILY PRACTICE 04/06/16 Sharmila Davis APRN, DINKEY LOCOMOTIVE OPERATOR-C [address] [place] [address] NURSE PRACTITIONER 01/04/17 04/03/24 Zaki Ortiz MD [address] [place] [address] Consulting Physician PULMONARY DISEASE 07/12/19 Concetta Acevedo MD [address] [place] [address] Surgeon NEUROLOGICAL SURGERY 12/16/22 Jeff Grace MD [address] [place] [address] Consulting Physician INTERNAL MEDICINE 02/11/23 Brit Gonzáles MD [address] [place] [address] Consulting Physician CARDIOVASCULAR DISEASE 12/29/23 documented as of this encounter
--- OUTSIDE RECORDS SUMMARY | 2024-09-03 19:08 | XMS_ITS | Encounter Summary ---
Author Organization [facility] Address [facility] [place] [address] [place] [address] Care Team Providers Care Attending Radiologist Name Role Phone Megan Infante MD Primary Care Provider [phone] Sharmila Davis APRN, NP-C Unavailable Zaki Ortiz MD Unavailable [phone] Concetta Acevedo MD Unavailable + [phone] Jeff Grace MD Unavailable rBit Gonzáles MD Unavailable Encounter Details Date Type Department Care Team (Late st Contact Info) Description 03/06/2024 1:00 PM CDT - 03/06/2024 11:59 PM CDT Hospital Encounter [facility] [address] [place] [address] Zayra Powell, [facility] [address] [place] [address] Discharge Disposition: Home or Self Care (Routine Discharge) Social History Tobacco Use Types Packs/Day Years Used Date Smoking Tobacco: Former Smokeless Tobacco: Former Chew Alcohol Use Standard Drinks/Week Comments Yes 0 (1 standard drink = 0.6 oz pur e alcohol) 4 beers per week [facility] Utilities Answer Date Recorded In the past 12 months has [employer] electric, gas, oil, or water company threatened [...] How often do you attend alevism or pentecostal serv ices? Patient declined 02/16/2023 Do you [...] Author Status No 07/12/2023 6:58 PM Liliana Lanye RN Active * Are you blind or [...] encounter Progress Notes * LALIT Cheney - 03/06/2024 1:00 PM CDTEncounter addended by: LALIT Cheney on: 03/06/2024 1:45 PM Actions taken: Order list changed, Diagnosis association updated * Mary Moore RN - 03/06/2024 1:00 PM CDTEncounter addended by: Mary Moore RN on: 03/06/2024 2:51 PM Actions taken: MAR administration accepted, Multistep and multistep collection tasks completed * LALIT Cheney - 03/06/2024 1:00 PM CDTEncounter addended by: LALIT Cheney on: 03/09/2024 9:45 AM Actions taken: Diagnosis association updated, Order list changed * LALIT Cheney - 03/06/2024 1:00 PM CDTEncounter addended by: LALIT Cheney on: 03/09/2024 2:15 PM Actions taken: Visit diagnoses modified, Order list changed, Diagnosis association updated documented in this encounter Plan of Treatment Upcoming Encounters Date Type Department Care Team (Late st Contact Info) Description 09/25/2024 2:00 PM FORMING MACHINE ADJUSTER Appointment [facility] [place] [address] Zayra Powell FNP [address] [facility] [place] [address] 10/16/2024 3:30 PM FORMING MACHINE ADJUSTER Office Visit [facility] [facility] [address] [place] [phone] Brit Gonzáles MD [address] [place] [address] documented as of this encounter Goals Goal Patient Goal Type Associated Problems Recent Progress Patient-Stated? Author Family - family caregiver with be involved in care transitions and discharge planning Lifestyle No Karen Quezada RN documented as of this encounter Procedures Procedure Name Priority Date/Time Associated Diagnosis Comments HC BODY FLUID CULTURE Routine 03/06/2024 1:22 PM CDT 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) documented in this encounter Results * CULTURE, WOUND, W/GRAM STAIN (03/06/2024 1:22 PM CDT) SPEC DESCRIPTION LEG,LEFT 03/06/2024 2:51 PM CDT [facility] SPECIAL REQUESTS NO SPECIAL REQUEST 03/06/2024 2:51 PM CDT [facility] GRAM STAIN RESULT NO ORGANISMS SEEN 03/06/2024 4:57 PM CDT [facility] CULTURE RESULT FEW PSEUDOMONAS AERUGINOSA 03/09/2024 9:16 AM CDT [facility] CULTURE RESULT FEW STENOTROPHOMONA S MALTOPHILIA 03/09/2024 9:16 AM CDT [facility] STRUCTURE OF LEFT LOWER LIMB / Unknown 03/06/2024 1:22 PM CDT 03/06/2024 2:57 PM CDT Narrative Organism Antibiotic Method Susceptibility Pseudomonas aeruginosa AMIKACIN CHAVA (KB) Sensitive Pseudomonas aeruginosa AZTREONAM CHAVA (KB) Sensitive Pseudomonas aeruginosa CEFEPIME CHAVA (KB) Sensitive Pseudomonas aeruginosa CEFTAZIDIME CHAVA (KB) Sensitive Pseudomonas aeruginosa CIPROFLOXACIN CHAVA (KB) Sensitive Pseudomonas aeruginosa LEVOFLOXACIN CHAVA (KB) Sensitive Pseudomonas aeruginosa MEROPENEM CHAVA (KB) Sensitive Pseudomonas aeruginosa PIPRACIL/TAZO CHAVA (KB) Sensitive Pseudomonas aeruginosa TOBRAMYCIN CHAVA (KB) Sensitive Stenotrophomonas maltophilia LEVOFLOXACIN CHAVA (KB) Sensitive Stenotrophomonas maltophilia MINOCYCLINE CHAVA (KB) Sensitive Stenotrophomonas maltophilia TRIMETH-SULFAMETH. CHAVA (K B) Sensitive Zayra SPAINP MICROBIOLOGY - GENERAL ORDERAB LES Final Result [facility] [address] [place] [address], [place] [phone] [facility] [address] [place] [address], [place] [phone] documented in this encounter Visit Diagnoses Diagnosis 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)- Primary 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) Pseudomonas infection Pseudomonas infection in conditions classified elsewhere and of unspecified site documented in this encounter Administered Medications Inactive Administered Medications - up to 3 most recent administrations Medication Order MAR Action Action Date Dose Rate Site lidocaine 2 % URO-JET jelly Topical, Once, 1 dose, On 03/06/24 at 1400Indications: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),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) Given 03/06/2024 1:00 PM CDT documented in this encounter Additional Health Concerns Assessment Noted Time PHQ-9 Depression Total Score: 0 12/02/19 1:18 PM CDT documented as of this encounter Care Teams Attending Radiologist Relationship Specialty Start Date End Date Megan Infante MD [address] [facility] [place] [phone] PCP - General FAMILY PRACTICE 04/06/16 Sharmila Davis, AIR DEFENSE ARTILLERY SENIOR SERGEANT, BROKER IN CHARGE-C [address] [place] [phone] NURSE PRACTITIONER 01/04/17 04/03/24 Zaki Ortiz MD [address] [place] [phone] Consulting Physician PULMONARY DISEASE 07/12/19 Concetta Acevedo MD [address] [place] [address] [phone] Surgeon NEUROLOGICAL SURGERY 12/16/22 Jeff Grace MD [address] [place] [address] Consulting Physician INTERNAL MEDICINE 02/11/23 Brit Gonzáles MD [address] [place] [phone] Consulting Physician CARDIOVASCULAR DISEASE 12/29/23 documented as of this encounter
--- OUTSIDE RECORDS SUMMARY | 2024-09-03 19:08 | XMS_ITS | Encounter Summary ---
Author Organization [facility] Address [facility] [place] [place] [address] [place] [address] Care Team Providers Care Ski Patrol Name Role Phone Megan Infante MD Primary Care Provider [phone] Sharmila Davis APRN, NP-C Unavailable [phone] Zaki Ortiz MD Unavailable [phone] Concetta Acevedo MD Unavailable + [phone] Jeff Grace MD Unavailable Brit Gonzáles MD Unavailable Encounter Details Date Type Department Care Team (Latest Contact Info) Description 03/20/2024 Travel Social History Tobacco Use Types Packs/Day Years Used Date Smoking Tobacco: Former Smokeless Tobacco: Former Chew Alcohol Use Standard Drinks/Week Comments Yes 0 (1 standard drink = 0.6 oz pur e alcohol) 4 beers per week [facility] Utilities Answer Date Recorded In the past 12 months has [employer], [employer], oil, or water [employer] threatened to shut off services in your [...] How often do you attend presybeterian or scientologist serv ices? Patient declined 02/16/2023 Do you [...] Date Author Status No 07/12/2023 6:58 PM INTEGRATION CONSULTANT Liliana Gutierrez, YUNI Active documented in this encounter Plan of Treatment Upcoming Encounters Date Type Department Care Team (Late st Contact Info) Description 09/25/2024 2:00 PM INTEGRATION CONSULTANT Appointment [facility] [address] [facility] [place] [address] Zayra Powell, GANG HEMSTITCHING MACHINE OPERATOR [address] [facility] [place] [address] 10/16/2024 3:30 PM INTEGRATION CONSULTANT Office Visit [facility] [address] [facility] [place] [address] Brit Gonzáles MD [address] [place] [address] documented as of this encounter Goals [...] as of this encounter Care Teams Ski Patrol Relationship Specialty Start Date End Date Megan Infante MD [address] [facility] [place] [address] PCP - General FAMILY PRACTICE 04/06/16 Sharmila Davis APRN, MASSOTHERAPIST-C [address] [place] [phone] NURSE PRACTITIONER 01/04/17 04/03/24 Zaki Ortiz MD [address] [place] [phone] Consulting Physician PULMONARY DISEASE 07/12/19 Concetta Acevedo MD [address] [place] [address] Surgeon NEUROLOGICAL SURGERY 12/16/22 Jeff Grace MD [address] [place] [address] Consulting Physician INTERNAL MEDICINE 02/11/23 Brit Gonzáles MD [address] [place], [place] [phone] Consulting Physician CARDIOVASCULAR DISEASE 12/29/23 documented as of this encounter
--- OUTSIDE RECORDS SUMMARY | 2024-09-03 19:08 | XMS_ITS | Encounter Summary ---
Author Organization [facility] Address [address] [place] [address]. [place] [address] [place] [address] Care Team Providers Care Drapery Hanger Name Role Phone Piyush Pandey MD Unavailable Unavailabl e Megan Infante MD Primary Care Provider [phone] Sharmila Davis APRN INSTRUCTOR BALLROOM DANCING-C Unavailable [phone] Zaki Ortiz MD Unavailable [phone] Concetta Acevedo MD Unavailable + [phone] Jeff Grace MD Unavailable Encounter Details Date Type Department Care Team (Late st Contact Info) Description 08/17/2023 11:25 AM FUSE COILER - 08/17/2023 11:59 PM [facility] [address] [place] [address] Zayra Powell, [facility] [address] [place] [address] Discharge Disposition: Home or Self Care (Routine Discharge) Social History Tobacco Use Types Packs/Day Years Used Date Smoking Tobacco: Former Smokeless Tobacco: Former Chew Alcohol Use Standard Drinks/Week Comments Yes 0 (1 standard drink = 0.6 oz pur e alcohol) 6 beers per week [facility] Utilities Answer Date Recorded In [...] declined 02/16/2023 How often do you attend protestant or amish serv ices? Patient declined 02/16/2023 Do you belong to any clubs o r organizations such as protestant groups, unions, fraternal or athletic groups, or [...] 3-9 0 12/01/2021 [facility] - Occupational [...] encounter Progress Notes * LALIT Cheney - 08/17/2023 11:30 AM CSTEncounter addended by: LALIT Cheney on: 08/17/2023 12:15 PM Actions taken: Visit diagnoses modified, Order list changed, Diagnosis association updated COILER * Mary Moore RN - 08/17/2023 11:30 AM CSTEncounter addended by: Mary Moore RN on: 08/17/2023 12:43 PM Actions taken: MAR administration accepted COILER documented in this encounter Plan of Treatment Upcoming Encounters Date Type Department Care Team (Late st Contact Info) Description 09/25/2024 2:00 [address] [facility] [address] [place] [address] Zayra Powell FNP [address] [place] [address] 10/16/2024 3:30 PM FUSE COILER Office Visit [facility] [address] [place] [address] Brit Gonzáles MD [address] [place] [address] documented as of this encounter Goals Goal Patient Goal Type Associated Problems Recent Progress Patient-Stated? Author Family - family caregiver with be involved in care transitions and discharge planning Lifestyle Karen Diane RN documented as of this encounter Visit Diagnoses Diagnosis Varicose veins of bilateral lower extremities with other complications- Primary Leg edema Edema Venous insufficiency Unspecified venous (peripheral) insufficiency documented in this encounter Administered Medications Inactive Administered Medications - up to 3 most recent administrations Medication Order MAR Action Action Date Dose Rate Site lidocaine 2 % URO-JET jelly Topical, Once, 1 dose, On Wed08/17/23 at 1230 Given 08/17/2023 11:30 AM FUSE COILER documented in this encounter Additional Health Concerns Assessment Noted Time PHQ-9 Depression Total Score: 0 12/02/19 22 1:18 PM CDT documented as of this encounter Care Teams Drapery Hanger Relationship Specialty Start Date End Date Megan Infante MD [address] [place] [address] PCP - General FAMILY PRACTICE 04/06/16 Piyush Pandey MD [place] Dual Rate Supervisor CARDIOVASCULAR DISEASE 04/06/16 12/28/23 Sharmila Davis APRN, INSTRUCTOR BALLROOM DANCING-C [address] [place] [phone] NURSE PRACTITIONER 01/04/17 04/03/24 Zaki Ortiz MD [address] [facility] [address] [phone] Consulting Physician PULMONARY DISEASE 07/12/19 Concetta Acevedo MD [address] [place] [address] [phone] Surgeon NEUROLOGICAL SURGERY 12/16/22 Jeff Grace MD [address] [place] [address] Consulting Physician INTERNAL MEDICINE 02/11/23 documented as of this encounter
--- OUTSIDE RECORDS SUMMARY | 2024-09-03 19:08 | XMS_ITS | Encounter Summary ---
Author Organization [facility] Address [facility] [place] [address] [place] [address] Care Team Providers Care Home Paraprofessional Name Role Phone Piyush Pandey MD Unavailable Unavailabl e Megan Infante MD Primary Care Provider [phone] Sharmila Davis APRN, NP-C Unavailable Zaki Ortiz MD Unavailable [phone] Concetta Acevedo MD Unavailable + [phone] Jeff Grace MD Unavailable Encounter Details Date Type Department Care Team (Late st Contact Info) Description 08/10/2023 Orders Only [facility] [address] [facility] [place] [address] Theresa Sheriff PA-C [address] [place] [phone] Social History Tobacco Use Types Packs/Day Years Used Date Smoking Tobacco: Former Smokeless Tobacco: Former Chew Alcohol Use Standard Drinks/Week Comments Yes 0 (1 standard drink = 0.6 oz pur e alcohol) 6 beers per week [facility] Utilities Answer Date Recorded In the past 12 months has th e [employer], gas, oil, or water [employer] threatened to shut off services in your [...] How often do you attend pentecostalism or anabaptism serv ices? Patient declined 02/16/2023 [...] place to sleep or slept in a alf (including now)? Patient declined 07/12/2023 Sex and [...] st Contact Info) Description 09/25/2024 2:00 PM HOME AND SCHOOL VISITOR Appointment [facility] [address] [place] [address] Zayra Powell, [facility] [address] [place] [address] 10/16/2024 3:30 PM HOME AND SCHOOL VISITOR Office Visit [facility] [address] [facility] [place] [phone] Brit Gonzáles MD [address] [place] [address] documented as of this encounter Goals Goal Patient Goal Type Associated Problems Recent Progress Patient-Stated? Author Family - family caregiver with be involved in care transitions and discharge planning Lifestyle No Karen Quezada RN documented as of this encounter Results * (ABNORMAL) RENAL FUNCTION PANEL (08/10/2023 11:48 AM HOME AND SCHOOL VISITOR) SODIUM S/P/B 135(L) 136 - 145 MMOL/L 08/10/2023 12:18 PM [facility] POTASSIUM S/P/B 4.6 3.5 - 5.1 MMOL/L 08/10/2023 12:18 PM [facility] CHLORIDE S/P/B 99 98 - 107 MMOL/L 08/10/2023 12:18 PM [facility] CO2 30.6 21.0 - 32.0 MMOL/L 08/10/2023 12:18 PM [facility] GLUCOSE 221(H) 70 - 99 MG/DL 08/10/2023 12:18 PM [facility] Comment: FASTING GLUCOSE 100 TO 125 MG/DL IS CONSISTENT WITH IMPAIRED FASTING GLUCOSE. FASTING GLUCOSE >125 MG/DL IS CONSISTENT WITH DIABETES. RANDOM GLUCOSE >200 MG/DL WITH HYPERGLYCEMIC SYMPTOMS IS CONSISTENT WITH DIABETES. PER ADA GUIDELINES BUN 42(H) 6 - 24 MG/DL 08/10/2023 12:18 PM [facility] CREATININE S/P/B 1.71(H) 0.70 - 1.30 MG/DL 08/10/2023 12:18 PM [facility] CALCIUM S/P/B 9.3 8.4 - 10.5 MG/DL 08/10/2023 12:18 PM [facility] ALBUMIN S/P/B 3.2(L) 3.4 - 5.0 G/DL 08/10/2023 12:18 PM [facility] PHOSPHORUS 4.7 2.6 - 4.7 MG/DL 08/10/2023 12:18 PM [facility] ANION GAP 5.4 5.0 - 15.0 MMOL/L 08/10/2023 12:18 PM [facility] OSMOLALITY (CALC) 297 MOSM/KG 023 12:18 PM [facility] Comment:REFERENCE RANGE NOT ESTABLISHED GFR ESTIMATE 43(L) >89 ML/MIN/1. 73 M2 08/10/2023 12:18 PM [facility] GFR NOTES GFR REFERENCE S: 08/10/2023 12:18 PM [facility] Comment: THE ESTIMATED GFR IS CALCULATED [...] ml/min/1.73 m2 G5,KIDNEY FAILURE: <15 ml/min/1.73 m2 08/10/2023 11:4 8 AM HOME AND SCHOOL VISITOR us Theresa Sheriff PA-C LABORATORY Final Resu lt [facility] [address] [place] [address], * (ABNORMAL) CBC W/DIFF AUTOMATED (08/10/2023 11:48 AM HOME AND SCHOOL VISITOR) WBC 8.36 4.00 - 10.80 x10'3/uL 08/10/2023 12:16 PM HOME AND SCHOOL VISITOR [facility] RBC 4.39(L) 4.50 - 6.10 x10'6/uL 08/10/2023 12:16 PM [facility] HGB 9.8(L) 13.0 - 18.0 G/DL 08/10/2023 12:16 PM [facility] HCT 35.2(L) 37.0 - 52.0 % 08/10/2023 12:16 PM [facility] MCV 80.2 78.0 - 100.0 FL 08/10/2023 12:16 PM [facility] MCH 22.3(L) 27.0 - 31.0 PG 08/10/2023 12:16 PM [facility] MCHC 27.8(L) 33.0 - 36.0 G/DL 08/10/2023 12:16 PM [facility] RDW 18.9(H) 11.5 - 14.5 % 08/10/2023 12:16 PM HOME AND SCHOOL VISITOR [facility] PLT 218 150 - 350 x10'3/uL 08/10/2023 12:16 PM [facility] MPV 9.6 7.4 - 10.4 FL 08/10/2023 12:16 PM [facility] CBC COMMENT NORMAL REFERENCE RANGE NOT ESTABLISHED FOR THE PROPORTIONAL LEUKOCYTE DIFFERENTIAL. 08/10/2023 12:16 PM [facility] NEUTROPHILS % 66.0 % 08/10/2023 12:29 PM [facility] LYMPHOCYTES % 14.1 % 08/10/2023 12:29 PM [facility] MONOCYTES % 10.3 % 08/10/2023 12:29 PM [facility] EOSINOPHILS % 8.5 % 08/10/2023 12:29 PM HOME AND SCHOOL VISITOR [facility] BASOPHILS % 0.7 % 08/10/2023 12:29 PM HOME AND SCHOOL VISITOR [facility] IMMATURE GRANS % 0.4 % 08/10/20 12:29 PM HOME AND SCHOOL VISITOR [facility] NRBC 0.0 % 08/10/2023 12:29 PM [facility] ABS. NEUTROPHILS 5.52 1.60 - 8.30 x10'3/uL 08/10/2023 12:29 PM [facility] ABS. LYMPHOCYTES 1.18 0.80 - 4.70 x10'3/uL 08/10/2023 12:29 PM [facility] ABS. MONOCYTES 0.86 0.00 - 1.50 x10'3/uL 08/10/2023 12:29 PM [facility] ABS. EOSINOPHILS 0.71(H) 0.00 - 0.40 x10'3/uL 08/10/2023 12:29 PM [facility] ABS. BASOPHILS 0.06 0.00 - 0.20 x10'3/uL 08/10/2023 12:29 PM [facility] ABS. IMMATURE GRANULOCYTES 0.03 0.00 - 0.03 x10'3/uL 08/10/2023 12:29 PM [facility] ABS. NUCLEATED RBC'S 0.00 0.00 x10'3/uL 08/10/2023 12:29 PM [facility] PLT MORPH. NORMAL 08/10/2023 12:29 PM [facility] RBC MORPHOLOGY 2+ 08/10/2023 12:29 PM [facility] Comment: ANISOCYTOSIS 2+ HYPOCHROMASIA 08/10/2023 11:4 8 AM HOME AND SCHOOL VISITOR Theresa Sheriff PA-C LABORATORY Final Resu lt Performing Organization Address [facility]/ZIP Co de Phone Number [facility] [address] [place] [phone], * (ABNORMAL) ALBUMIN CREATININE URINE RANDOM (08/10/2023 11:46 AM HOME AND SCHOOL VISITOR) ALBUMIN (U) 2.0 MG/DL 08/10/2023 12:17 PM HOME AND SCHOOL VISITOR [facility] Comment:REFERENCE RANGE NOT ESTABLISHED CREATININE RANDOM (U) 38.8 MG/DL 08/10/2023 12:17 PM HOME AND SCHOOL VISITOR [facility] Comment:REFERENCE RANGE NOT ESTABLISHED ALBUMIN/CREAT RATIO 51.6(H) <30 MG/G 08/10/2023 12:17 PM HOME AND SCHOOL VISITOR [facility] Comment: NORMAL TO MILDLY INCREASED ALBUMINURIA: <30 MG/G MODERATELY INCREASED ALBUMINURIA: 30 TO 300 MG/G SEVERELY INCREASED ALBUMINURIA: >300 MG/G PER KDIGO URINE SPECIMEN / Unknown 08/10/2023 11:46 AM HOME AND SCHOOL VISITOR Theresa Sheriff PA-C URINE ORDERABLES Final Res ult Performing Organization Address [facility] Co de Phone Number [facility] [address] [place] [phone], documented in this encounter Visit Diagnoses Diagnosis CKD (chronic kidney disease) stage 3, GFR 30-59 ml/min ([facility])- Primary Chronic kidney disease, Stage III (moderate) documented in this encounter Additional Health Concerns Assessment Noted Time PHQ-9 Depression Total Score: 0 12/02/19 22 1:18 PM CDT documented as of this encounter Care Teams Home Paraprofessional Relationship Specialty Start Date End Date Megan Infante MD [address] [place] [address] PCP - General FAMILY PRACTICE 04/06/16 Piyush Pandey MD [facility] Career Information Specialist CARDIOVASCULAR DISEASE 04/06/16 12/28/23 Sharmila Davis APRN, CONSUMER STUDIES PROFESSOR-C [address] [phone] NURSE PRACTITIONER 01/04/17 04/03/24 Zaki Ortiz MD [address] [address] Consulting Physician PULMONARY DISEASE 07/12/19 Concetta Acevedo MD [address] [place] [address] Surgeon NEUROLOGICAL SURGERY 12/16/22 Jeff Grace MD [address] [place], [place] [phone] Consulting Physician INTERNAL MEDICINE 02/11/23 documented as of this encounter
--- OUTSIDE RECORDS SUMMARY | 2024-09-03 19:08 | XMS_ITS | Encounter Summary ---
Author Organization [facility] Address [facility]6 [facility] [place] [address] [place] [address] Care Team Providers Care Wedding Florist Name Role Phone Megan Infante MD Primary Care Provider [phone] Sharmila Davis APRN, NP-C Unavailable Zaki Ortiz MD Unavailable [phone] Concetta Acevedo MD Unavailable + [phone] Jeff Grace MD Unavailable Brit Gonzáles MD Unavailable Reason for Visit * Reason Onset Date Comments Schedule Test 01/31/2024 Encounter Details Date Type Department Care Team (Late st Contact Info) Description 01/31/2024 Telephone [facility] [address] [place] [address] Brit Gonzáles MD [address] [place] [address] Schedule Test Social History Tobacco Use Types Packs/Day Years Used Date Smoking Tobacco: Former Smokeless Tobacco: Former Chew Alcohol Use Standard Drinks/Week Comments Yes 0 (1 standard drink = 0.6 oz pur e alcohol) 4 beers per week [facility] Utilities Answer Date Recorded In [...] How often do you attend christianity or spiritism serv ices? Patient declined 02/16/2023 Do you [...] move on to questions 3-9 0 12/01/2021 [facility] Occupat ional [facility] - Occupational [...] Assessment Author Status No 07/12/2023 6:58 PM Lliiana Layne RN Active documented as of this encounter Mental Status * Because of a physical, mental, or emotional condition, do you have serious difficulty concentrating, remembering, or making decisions? Answer Entry Date Author Status No 07/12/2023 6:58 PM Liliana Layne RN Active documented in this encounter Progress Notes * Chris Nuñez LPN - 02/03/2024 3:06 PM CDT I spoke to pt, he is wanting to know if he should continue PT, I advised him to hold off until he has testing done. Pt v/u, no further questions. * Fina Alexandra - 02/03/2024 11:56 AM CDT Testing to be scheduled : stress test Location : [facility] Date and Time : 03/15/24 @ 7:45 echo at 10:00. F/u is on 04/03/24 @ 12:30. I asked him to make sure to get labs on 02/14/24. Pt also would like to talk tot he nurse about his appt on Wednesday. He does have a couple questions. * Chris Nuñez LPN - 01/31/2024 3:19 PM CDT Please schedule pt for a stress test and echo on the same day at [facility] and let him know that he should have nothing to eat or drink for 4 hours prior and no caffeine for 12 hours prior. Please remind him to get labs in 2 weeks and scheduled him for a 6 week follow up. Thanks! documented in this encounter Plan of Treatment Upcoming Encounters Date Type Department Care Team (Late st Contact Info) Description 09/25/2024 2:00 PM RECRUITMENT CONSULTANT Appointment [facility] [address] [place] [address] Zayra Powell, ENTERPRISE INTEGRATION DEVELOPER [address] [place] [address] 10/16/2024 3:30 PM RECRUITMENT CONSULTANT Office Visit [facility] [address] [place] [address] Brit oGnzáles MD [address] [place] [address] documented as of this encounter [...] documented as of this encounter Care Teams Wedding Florist Relationship Specialty Start Date End Date Megan Infante MD [address] [place] [address] PCP - General FAMILY PRACTICE 04/06/16 Sharmila Davis APRN, PILLOW CLEANER-C [address] [facility] [address] [place] [address] NURSE PRACTITIONER 01/04/17 04/03/24 Zaki Ortiz MD [address] [facility] [address] [place] [address] Consulting Physician PULMONARY DISEASE 07/12/19 Concetta Acevedo MD [address] [place] [address] Surgeon NEUROLOGICAL SURGERY 12/16/22 Jeff Grace MD [address] [place] [address] Consulting Physician INTERNAL MEDICINE 02/11/23 Brit Gonzáles MD [address] [place] [address] Consulting Physician CARDIOVASCULAR DISEASE 12/29/23 documented as of this encounter
--- OUTSIDE RECORDS SUMMARY | 2024-09-03 19:08 | XMS_ITS | Encounter Summary ---
Author Organization [facility] Address [facility] [place] [place] [address] [place] [address] Care Team Providers Care Family Resource Coordinator Name Role Phone Piyush Pandey MD Unavailable Unavailabl e Megan Infante MD Primary Care Provider [phone] Sharmila Davis APRN, NP-C Unavailable [phone] Zaki Ortiz MD Unavailable [phone] Concetta Acevedo MD Unavailable + [phone] Jeff Grace MD Unavailable Encounter Details Date Type Department Care Team (Latest Contact Info) Description 08/03/2023 Travel Social History Tobacco Use Types Packs/Day Years Used Date Smoking Tobacco: Former Smokeless Tobacco: Former Chew Alcohol Use Standard Drinks/Week Comments Yes 0 (1 standard drink = 0.6 oz pur e alcohol) 6 beers per week [facility] Utilities Answer Date Recorded In the past 12 months has [employer], gas, oil, or water [employer] threatened to shut off services in your [...] declined 02/16/2023 How often do you attend advent or advent serv ices? Patient declined 02/16/2023 Do you belong to any clubs o r organizations such as advent groups, unions, fraternal or athletic groups, or [...] move on to questions 3-9 0 12/01/2021 [facility] of Occupat ional Health - Occupational [...] Date Author Status No 07/12/2023 6:58 PM BRAKE OPERATOR SHEET METAL Liliana Gutierrez, RN Active documented in this encounter Plan of Treatment Upcoming Encounters Date Type Department Care Team (Late st Contact Info) Description 09/25/2024 2:00 PM BRAKE OPERATOR SHEET METAL Appointment [facility] [address] [facility] [address] [address] Zayra Powell, PLASTIC AND RECONSTRUCTIVE SURGEON [address] [facility] [address] 10/16/2024 3:30 PM BRAKE OPERATOR SHEET METAL Office Visit [facility] [address] [place] [address] Brit Gonzáles MD [address] [place] [address] documented as of this encounter [...] documented as of this encounter Care Teams Family Resource Coordinator Relationship Specialty Start Date End Date Megan Infante MD [address] [facility] [address] PCP - General FAMILY PRACTICE 04/06/16 Piyush Panedy MD [place] Clinical Therapist CARDIOVASCULAR DISEASE 04/06/16 12/28/23 Sharmila Davis APRN, LPN CMA-C [address] [place] [address] [address] [place] [address] NURSE PRACTITIONER 01/04/17 04/03/24 Zaki Ortiz MD [address] [facility] [address] [place] [address] Consulting Physician PULMONARY DISEASE 07/12/19 Concetta Acevedo MD [address] [place] [address] [phone] Surgeon NEUROLOGICAL SURGERY 12/16/22 Jeff Grace MD [address] [place] [address] Consulting Physician INTERNAL MEDICINE 02/11/23 documented as of this encounter
--- OUTSIDE RECORDS SUMMARY | 2024-09-03 19:08 | XMS_ITS | Encounter Summary ---
Author Organization [facility] Address [facility]6 [facility] [place] [address] [place] [address] Care Team Providers Care Mill Machinist Name Role Phone Piyush Pandey MD Unavailable Unavailabl e Megan Infante MD Primary Care Provider [phone] Sharmila Davis APRN, NP-C Unavailable Zaki Ortiz MD Unavailable [phone] Concetta Acevedo MD Unavailable + [phone] Jeff Grace MD Unavailable Reason for Visit * Reason Onset Date Comments Called To Cancel Office Appt. 10/11/2023 Encounter Details Date Type Department Care Team (Late st Contact Info) Description 10/11/2023 Telephone [facility] [address] [place] [address] Jeff Grace MD [address] [place], [place] [phone] Called To Cancel Office Appt. Social History Tobacco Use Types Packs/Day Years Used Date Smoking Tobacco: Former Smokeless Tobacco: Former Chew Alcohol Use Standard Drinks/Week Comments Yes 0 (1 standard drink = 0.6 oz pur e alcohol) 6 beers per week [facility] Utilities Answer Date Recorded In the past 12 months has [employer], gas, oil, or water company threatened [...] How often do you attend orthodox or temple serv ices? Patient declined 02/16/2023 Do you [...] questions 3-9 0 12/01/2021 [employer] of Occupat ional Health - Occupational Stress [...] Assessment Author Status No 07/12/2023 6:58 PM DIETARY DIRECTOR Liliana Gutierrez RN Active * Because of a physical, [...] documented in this encounter Progress Notes * Terri Varghese - 10/11/2023 9:08 AM CST CALLER: pt REASON FOR CALL: I need to cancel my appointment tomorrow, I am very sick and I will just call themwhen I feel better. REQUEST HANDLED AND HOW: cancelling appointment for tomorrow ARY DIRECTOR documented in this encounter Plan of Treatment Upcoming Encounters Date Type Department Care Team (Late st Contact Info) Description 09/25/2024 2:00 PM DIETARY DIRECTOR Appointment [facility] [address] [place] [address] Zayra Powell, TOOL DISPATCHER [address] [place] [address] 10/16/2024 3:30 PM DIETARY DIRECTOR Office Visit [facility] [address] [place] [address] Brit Gonzáles MD [address] [place] [address] documented as of this encounter Goals Goal [...] documented as of this encounter Care Teams Mill Machinist Relationship Specialty Start Date End Date Megan Infante MD [address] [place] [address] PCP - General FAMILY PRACTICE 04/06/16 Piyush Pandey MD [place] Machine Cell Tuber CARDIOVASCULAR DISEASE 04/06/16 12/28/23 Sharmila Davis, CHIPS SCREEN TENDER, ENVELOPE FOLDER-C [address] [place] [address] NURSE PRACTITIONER 01/04/17 04/03/24 Zaki Ortiz MD [address] [place] [address] Consulting Physician PULMONARY DISEASE 07/12/19 Concetta Acevedo MD [address] [place] [address] [phone] Surgeon NEUROLOGICAL SURGERY 12/16/22 Jeff Grace MD 9 [place], [place] [address] Consulting Physician INTERNAL MEDICINE 02/11/23 documented as of this encounter
--- OUTSIDE RECORDS SUMMARY | 2024-09-03 19:08 | XMS_ITS | Encounter Summary ---
Author Organization [facility] Address [facility]6 [facility] [place] [address] [place] [address] Care Team Providers Care Dinkey Motor Operator Name Role Phone Megan Infante MD Primary Care Provider [phone] Sharmila Davis APRN, NP-C Unavailable [phone] Zaki Ortiz MD Unavailable [phone] Concetta Acevedo MD Unavailable + [phone] Jeff Grace MD Unavailable Brit Gonzáles MD Unavailable Encounter Details Date Type Department Care Team (Latest Contact Info) Description 02/28/2024 Travel Social History Tobacco Use Types Packs/Day Years Used Date Smoking Tobacco: Former Smokeless Tobacco: Former Chew Alcohol Use Standard Drinks/Week Comments Yes 0 (1 standard drink = 0.6 oz pur e alcohol) 4 beers per week [facility] Utilities Answer Date Recorded In the past 12 months has [email or web address], oil, or water [employer] threatened to shut off services in your [...] How often do you attend taoist or latter day serv ices? Patient declined 02/16/2023 Do you [...] Date Author Status No 07/12/2023 6:58 PM SALARY AND WAGE ADMINISTRATOR Liliana Gutierrez, YUNI Active documented in this encounter Plan of Treatment Upcoming Encounters Date Type Department Care Team (Late st Contact Info) Description 09/25/2024 2:00 PM SALARY AND WAGE ADMINISTRATOR Appointment [facility] [address] [facility] [address] Zayra Powell, ORDNANCE TECHNICIAN [address] [place] [address] 10/16/2024 3:30 PM SALARY AND WAGE ADMINISTRATOR Office Visit [facility] [address] [facility] [place] [address] Brit Gonzáles MD [address] [place] [address] documented as of this encounter Goals [...] documented as of this encounter Care Teams Dinkey Motor Operator Relationship Specialty Start Date End Date Megan Infante MD [address] [facility] [address] PCP - General FAMILY PRACTICE 04/06/16 Sharmila Davis APRN, STATE SUPERINTENDENT OF SCHOOLS-C [address] [place] [address] NURSE PRACTITIONER 01/04/17 04/03/24 Zaki Ortiz MD [address] [place] [address] Consulting Physician PULMONARY DISEASE 07/12/19 Concetta Acevedo MD [address] [place] [address] Surgeon NEUROLOGICAL SURGERY 12/16/22 Jeff Grace MD [address] [place] [address] Consulting Physician INTERNAL MEDICINE 02/11/23 Brit Gonzáles MD [address] [place], [place] [address] Consulting Physician CARDIOVASCULAR DISEASE 12/29/23 documented as of this encounter
--- OUTSIDE RECORDS SUMMARY | 2024-09-03 19:08 | XMS_ITS | Encounter Summary ---
Author Organization [facility] Address [facility] [facility] [place] [address] [place] [address] Care Team Providers Care Renovator Machine Operator Name Role Phone Megan Infante MD Primary Care Provider [phone] Sharmila Davis APRN, NP-C Unavailable [phone] Zaki Ortiz MD Unavailable [phone] Concetta Acevedo MD Unavailable + [phone] Jeff Grace MD Unavailable Brit Gonzáles MD Unavailable Encounter Details Date Type Department Care Team (Late st Contact Info) Description 03/30/2024 Orders Only [facility] [address] [place], [place] [address] Brit Gonzáles MD 6[address] [place] [address] Social History Tobacco Use Types Packs/Day Years Used Date Smoking Tobacco: Former Smokeless Tobacco: Former Chew Alcohol Use Standard Drinks/Week Comments Yes 0 (1 standard drink = 0.6 oz pur e alcohol) 4 beers per week [facility] Utilities Answer Date Recorded In [...] declined 02/16/2023 How often do you attend jainism or mormonism serv ices? Patient declined 02/16/2023 Do you belong to any clubs o r organizations such as jainism groups, unions, fraternal or athletic groups, or [...] Assessment Author Status No 07/12/2023 6:58 PM GENERAL FARMER Brenda, Liliana A, RN Active * Because [...] st Contact Info) Description 09/25/2024 2:00 PM GENERAL FARMER Appointment [facility] [address] [place] [address] Zayra Powell, PIPEFITTER [address] [facility] [address] [place] [phone] 10/16/2024 3:30 PM GENERAL FARMER Office Visit [facility] [address] [place] [address] Brit Gonzáles MD [address] [place] [address] Scheduled Orders Name Type Priority Associated Diagnoses Orde r Schedule ECG 12 lead (HOSPITAL PERFORMED ONLY) EKG-NonRad Routine Pre-op examination Expected: 04/03/2024, Expires: 03/30/2025 documented as of this encounter Goals Goal Patient Goal Type Associated Problems Recent Progress Patient-Stated? Author Family - family caregiver with be involved in care transitions and discharge planning Lifestyle No Karen Quezada RN documented as of this encounter Visit Diagnoses Diagnosis Pre-op examination- Primary Preoperative examination, unspecified documented in this encounter Additional Health Concerns Assessment Noted Time PHQ-9 Depression Total Score: 0 12/02/19 22 1:18 PM CDT documented as of this encounter Care Teams Renovator Machine Operator Relationship Specialty Start Date End Date Megan Infante MD [address] [place] [address] PCP - General FAMILY PRACTICE 04/06/16 Sharmila Davis, SOFTWARE APPLICATIONS SPECIALIST, ASSISTANT TO THE PRESIDENT-C [address] [place] [phone] NURSE PRACTITIONER 01/04/17 04/03/24 Zaki Ortiz MD [address] [place] [phone] Consulting Physician PULMONARY DISEASE 07/12/19 Concetta Acevedo MD [address] [place] [address] Surgeon NEUROLOGICAL SURGERY 12/16/22 Jeff Grace MD [address] [place] [address] 637111 Consulting Physician INTERNAL MEDICINE 02/11/23 Brit Gonzáles MD [address] [place] [phone] Consulting Physician CARDIOVASCULAR DISEASE 12/29/23 documented as of this encounter
--- OUTSIDE RECORDS SUMMARY | 2024-09-03 19:08 | XMS_ITS | Encounter Summary ---
Author Organization [facility] Address [facility] [facility] [place] [address] [place] [address] Care Team Providers Care Velvet Cutter Name Role Phone Piyush Pandey MD Unavailable Unavailabl Megan Leos MD Primary Care Provider [phone] Sharmila Davis APRN PIPE BLANKS CUT OFF SAW OPERATOR-C Unavailable [phone] Zaki Ortiz MD Unavailable [phone] Concetta Acevedo MD Unavailable + [phone] Jeff Grace MD Unavailable Reason for Referral * Imaging (Routine) - Closed Specialty Diagnoses / Procedures Referred By Contac t Referred To Contact RADIOLOGY Diagnoses CKD (chronic kidney disease) stage 3, GFR 30-59 ml/min ([facility]/HCC) Decreased GFR Procedures US RETROPERITONEAL COMP Katina Beltran MD Phone: tel: fax: Referral ID Status Reason Start Date Expiration Date Visits Re quested Visits Authorized [id number] Closed 08/02/2023 08/02/2024 1 1 LITIES CLERK Reason for Visit * Imaging (Routine) - Closed Specialty Diagnoses / Procedures Referred By Contac t Referred To Contact RADIOLOGY Diagnoses CKD (chronic kidney disease) stage 3, GFR 30-59 ml/min ([facility]CC HHS/HCC) Decreased GFR Procedures US RETROPERITONEAL COMP Katina Beltran MD Phone: tel: fax: Referral ID Status Reason Start Date Expiration Date Visits Re quested Visits Authorized [id number] Closed 08/02/2023 08/02/2024 1 1 Encounter Details Date Type Department Care Team (Late st Contact Info) Description 08/06/2023 1:27 PM FACILITIES CLERK - 08/06/2023 11:59 PM FACILITIES CLERK Hospital Encounter [facility] [address] [place] [address] Katina Beltran MD [address] [place] [address] [phone] Discharge Disposition: Home or Self Care (Routine Discharge) Social History Tobacco Use Types Packs/Day Years Used Date Smoking Tobacco: Former Smokeless Tobacco: Former Chew Alcohol Use Standard Drinks/Week Comments Yes 0 (1 standard drink = 0.6 oz pur e alcohol) [address] [facility] Utilities Answer Date Recorded In the past 12 months has [employer], gas, oil, or water [employer] threatened to shut off services in your [...] declined 02/16/2023 How often do you attend gnosticism or spiritism serv ices? Patient declined 02/16/2023 Do you belong to any clubs o r organizations such as gnosticism groups, unions, fraternal or athletic groups, or [...] move on to questions 3-9 0 12/01/2021 [facility] of Occupat ional Health - Occupational Stress [...] total) by mouth nightly at bedtime. 10/17/2022 sertraline 50 MG tablet Take 1 tablet [...] st Contact Info) Description 09/25/2024 2:00 PM FACILITIES CLERK Appointment [facility] [address] [facility] [place] [address] Zayra Powell, PUBLIC SAFETY TELECOMMUNICATOR [address] [facility] [place] [address] 10/16/2024 3:30 PM FACILITIES CLERK Office Visit [facility] [address] [address] [place] [phone] Brit Gonzáles MD [address] [place] [address] documented as of this encounter Goals Goal Patient Goal Type Associated Problems Recent Progress Patient-Stated? Author Family - family caregiver with be involved in care transitions and discharge planning Lifestyle No Karen Quezada RN documented as of this encounter Procedures Procedure Name Priority Date/Time Associated Diagnosis Comments US RETROPERITONEAL COMP Routine 08/06/20 2:06 PM FACILITIES CLERK CKD (chronic kidney disease) stage 3, GFR 30-59 ml/min ([facility]) Decreased GFR documented in this encounter Results * US RETROPERITONEAL COMP (08/06/2023 2:06 PM FACILITIES CLERK) Anatomical Region Laterality Modality Abdomen Ultrasound 08/07/2023 2:11 AM FACILITIES CLERK Impressions 08/07/2023 2:14 AM FACILITIES CLERK IMPRESSION: Increased cortical echogenicity consistent with medical renal disease. ??Bilateral renal cysts. ??Negative for hydronephrosis. Prostatic enlargement. ??Significant post void urinary bladder residual. Referred By: KATINA BELTRAN Interpreted By: Zaki Antoine MD, 08/07/2023 2:11 AM Narrative 08/07/2023 2:14 AM FACILITIES CLERK Retroperitoneal ultrasound complete INDICATION: Stage III renal disease. ??Worsening GFR. COMPARISON: None. The right kidney measures 11.2 x 7.0 x 4.9 cm and the left kidney measures 10.9 x 6.4 x 4.2 cm. ??Renal volumes are 203 cc on the right and 152 cc on the left. ??There is increased cortical echogenicity bilaterally consistent with medical renal disease. ??There are bilateral renal cysts up to 4.8 cm in size. ??No hydronephrosis, calculus or solid mass is seen. The prostate is enlarged. ??Urinary bladder volume is 233 cc prevoiding and 86 cc post voiding. ??Normal ureteral jets were noted. Procedure Note Zaki Antoine MD - 08/07/2023 Retroperitoneal ultrasound complete INDICATION: Stage III renal disease. Worsening GFR. COMPARISON: None. The right kidney measures 11.2 x 7.0 x 4.9 cm and the left kidney lmxmahcj50.9 x 6.4 x 4.2 cm. Renal volumes are 203 cc on the right and 152 cc onthe left. There is increased cortical echogenicity bilaterally consistentwith medical renal disease. There are bilateral renal cysts up to 4.8 cmin size. No hydronephrosis, calculus or solid mass is seen. The prostate is enlarged. Urinary bladder volume is 233 cc prevoiding and86 cc post voiding. Normal ureteral jets were noted. IMPRESSION: Increased cortical echogenicity consistent with medical renaldisease. Bilateral renal cysts. Negative for hydronephrosis. Prostatic enlargement. Significant post void urinary bladder residual. Referred By: KATINA BELTRAN Interpreted By: Zaki Antoine MD, 08/07/2023 2:11 AM Katina Beltran MD ULTRASOUND Final Resu lt documented in this encounter Visit Diagnoses Diagnosis CKD (chronic kidney disease) stage 3, GFR 30-59 ml/min ([facility]) Chronic kidney disease, Stage III (moderate) Decreased GFR Nonspecific abnormal results of kidney function study documented in this encounter Additional Health Concerns Assessment Noted Time PHQ-9 Depression Total Score: 0 12/02/19 22 1:18 PM CDT documented as of this encounter Care Teams Velvet Cutter Relationship Specialty [place] [address] [place] [address] [place] [address] PCP - General FAMILY PRACTICE 04/06/16 Piyush Pandey MD [employer] Materials Engineer CARDIOVASCULAR DISEASE 04/06/16 12/28/23 Sharmila Davis APRN, PIPE BLANKS CUT OFF SAW OPERATOR-C [address] [phone] NURSE PRACTITIONER 01/04/17 04/03/24 Zaki Ortiz MD [address] [place] [phone] Consulting Physician PULMONARY DISEASE 07/12/19 Concetta Acevedo MD [address] [place] [address] Surgeon NEUROLOGICAL SURGERY 12/16/22 Jeff Grace MD 9 [place], [place] [phone] Consulting Physician INTERNAL MEDICINE 02/11/23 documented as of this encounter
--- OUTSIDE RECORDS SUMMARY | 2024-09-03 19:08 | XMS_ITS | Encounter Summary ---
Author Organization [facility] Address [facility] [place] [address] [place] [address] Care Team Providers Care Rags Laborer Name Role Phone Megan Infante MD Primary Care Provider [phone] Sharmila Davis APRN, NP-C Unavailable Zaki Ortiz MD Unavailable [phone] Concetta Acevedo MD Unavailable + [phone] Jeff Grace MD Unavailable Brit Gonzáles MD Unavailable Reason for Visit * Reason Onset Date Comments Information 02/03/2024 Encounter Details Date Type Department Care Team (Late st Contact Info) Description 02/03/2024 [facility]phone [facility] [address] [place] [address] Brit Gonzáles MD [address] [place] [address] Information Social History Tobacco Use Types Packs/Day Years Used Date Smoking Tobacco: Former Smokeless Tobacco: Former Chew Alcohol Use Standard Drinks/Week Comments Yes 0 (1 standard drink = 0.6 oz pur e alcohol) 4 beers per week [facility] Utilities Answer Date Recorded In [...] How often do you attend confucianist or church serv ices? Patient declined 02/16/2023 Do you [...] move on to questions 3-9 0 12/01/2021 [facility] of Occupat ional Health - Occupational Stress [...] encounter Progress Notes * Fina Alexandra - 02/03/2024 4:00 PM CDT I have called [facility] and left a vm for Nevin. I am calling to make her aware that the pt needs to have some testing done before she can fill out this paperwork. documented in this encounter Plan of Treatment Upcoming Encounters Date Type Department Care Team (Late st Contact Info) Description 09/25/2024 2:00 PM COMMERCIAL FIELD INSPECTOR Appointment [facility] [address] [place] [address] Zayra Powell, [facility] [address] [place] [address] 10/16/2024 3:30 PM COMMERCIAL FIELD INSPECTOR Office Visit [facility] [address] [place] [phone] Brit Gonzáles MD [address] [place] [address] documented as of this encounter Goals Goal [...] documented as of this encounter Care Teams Rags Laborer Relationship Specialty Start Date End Date Megan Infante MD [address] [place] [phone] PCP - General FAMILY PRACTICE 04/06/16 Sharmila Davis, FICTION AND NONFICTION PROSE WRITER, CUSTOMER SERVICE ATTENDANT-C [address] [place] [address] NURSE PRACTITIONER 01/04/17 04/03/24 Zaki Ortiz MD [address] [place] [address] Consulting Physician PULMONARY DISEASE 07/12/19 Concetta Acevedo MD [address] [place] [address] Surgeon NEUROLOGICAL SURGERY 12/16/22 Jeff Grace MD [address] [place] [address] Consulting Physician INTERNAL MEDICINE 02/11/23 Brit Gonzáles MD [address] [place] [id number] Consulting Physician CARDIOVASCULAR DISEASE 12/29/23 documented as of this encounter
--- OUTSIDE RECORDS SUMMARY | 2024-09-03 19:08 | XMS_ITS | Encounter Summary ---
Author Organization [facility] Address [facility] [address] [place] [address] Care Team Providers Care Puller Through Name Role Phone Megan Infante MD Primary Care Provider [phone] Sharmila Davis APRN, NP-C Unavailable [phone] Zaki Ortiz MD Unavailable [phone] Concetta Acevedo MD Unavailable [phone] Jeff Grace MD Unavailable Brit Gonzáles MD Unavailable Reason for Referral * Procedure (Routine) - New Request Specialty Diagnoses / Procedures Referred By Yung sequeira Referred To Contact Diagnoses Dyspnea on exertion Procedures Stress Test (Nuclear) [facility] [address] [place] [address] [place] [address] Phone: tel: Referral ID Status Reason Start Date Expiration Date V isits Requested Visits Authorized [id number] New Request 03/15/2024 03/15/2025 1 1 Reason for Visit * Imaging (Routine) - Closed Specialty Diagnoses / Procedures Referred By Yung sequeira Referred To Contact RADIOLOGY Diagnoses Dyspnea on exertion Procedures NM PHARM NUC STRESS TEST 1DBrit Hudson MD [address] [place] [address] Phone: tel: fax: Referral ID Status Reason Start Date Expiration Date Visits Re quested Visits Authorized [id number] Closed 01/31/2024 03/02/2025 4 4 Encounter Details Date Type Department Care Team (Latest Contact Info) Description 03/15/2024 7:47 AM CDT - 03/15/2024 11:59 PM CDT Hospital Encounter [facility] [address] [facility] [place] [address] Brit Gonzáles MD [address] [place] [address] [place] [address] [address] [place] [address] Discharge Disposition: Home or Self Care (Routine Discharge) Social History Tobacco Use Types Packs/Day Years Used Date Smoking Tobacco: Former Smokeless Tobacco: Former Chew Alcohol Use Standard Drinks/Week Comments Yes 0 (1 standard drink = 0.6 oz pur e alcohol) 4 beers per week [facility] Utilities Answer Date Recorded In the past 12 months has [employer], gas, oil, or water [employer] threatened to shut off services in your [...] often do you attend latter day or yarsanism serv ices? Patient declined 02/16/2023 Do you belong to any clubs o r organizations such as latter day groups, unions, fraternal or athletic groups, or [...] move on to questions 3-9 0 12/01/2021 [facility] of Occupat ional Health - Occupational Stress [...] st Contact Info) Description 09/25/2024 2:00 PM PRINCIPAL SECURITY ARCHITECT Appointment [facility] [address] [place] [address] Zayra Powell FNP [address] [place] [phone] 10/16/2024 3:30 PM PRINCIPAL SECURITY ARCHITECT Office Visit [facility] [facility] [phone] [place] [address] Brit Gonzáles MD [address] [place] [address] documented as of this encounter Goals Goal Patient Goal Type Associated Problems Recent Progress Patient-Stated? Author Family - family caregiver with be involved in care transitions and discharge planning Lifestyle Karen Diane RN documented as of this encounter Procedures Procedure Name Priority Date/Time Associated Diagnosis Comments CARDIOLOGY STRESS TEST ONLY, EXERCISE Routine 03/15/2024 7:55 AM CDT Dyspnea on exertion documented in this encounter Visit Diagnoses Diagnosis Dyspnea on exertion- Primary Other dyspnea and respiratory abnormality documented in this encounter Additional Health Concerns Assessment Noted Time PHQ-9 Depression Total Score: 0 12/02/19 22 1:18 PM CDT documented as of this encounter Care Teams Puller Through Relationship Specialty Start Date End Date Megan Infante MD [address] [place] [address] PCP - General FAMILY PRACTICE 04/06/16 Sharmila Davis APRN, MINE UTILITY OPERATOR-C [address] [facility][1] [address] [address] NURSE PRACTITIONER 01/04/17 04/03/24 Zaki Ortiz MD [address] [facility][1] [address] [phone] Consulting Physician PULMONARY DISEASE 07/12/19 Concetta Acevedo MD [address] [place] [address] Surgeon NEUROLOGICAL SURGERY 12/16/22 Jeff Grace MD [address] [place], [place] [address] Consulting Physician INTERNAL MEDICINE 02/11/23 Brit Gonzáles MD [address] [place] [address] Consulting Physician CARDIOVASCULAR DISEASE 12/29/23 documented as of this encounter
--- OUTSIDE RECORDS SUMMARY | 2024-09-03 19:08 | XMS_ITS | Encounter Summary ---
Author Organization [facility] Address [address] [place] [address]. [place] [address] [place] [address] Care Team Providers Care Holistic Health Practitioner Name Role Phone Piyush Pandey MD Unavailable Unavailabl e Megan Infante MD Primary Care Provider [phone] Sharmila Davis APRN, NP-C Unavailable Zaki Ortiz MD Unavailable [phone] Concetta Acevedo MD Unavailable + [phone] Jeff Grace MD Unavailable Encounter Details Date Type Department Care Team (Late st Contact Info) Description 08/10/2023 11:28 AM TOILET PRODUCTS MOLDER - 08/10/2023 11:59 PM [facility] Hospital Encounter [facility] [address] [place] [address] Theresa Sheriff PA-C [facility] [place] [address] Discharge Disposition: Home or Self Care (Routine Discharge) Social History Tobacco Use Types Packs/Day Years Used Date Smoking Tobacco: Former Smokeless Tobacco: Former Chew Alcohol Use Standard Drinks/Week Comments Yes 0 (1 standard drink = 0.6 oz pur e alcohol) 6 beers per week [facility] Utilities Answer Date Recorded In the past 12 months has [employer], gas, oil, or water company threatened [...] How often do you attend synagogue or alevism serv ices? Patient declined 02/16/2023 Do you [...] move on to questions 3-9 0 12/01/2021 [facility] of Occupat ional Health - Occupational Stress [...] st Contact Info) Description 09/25/2024 2:00 PM TOILET PRODUCTS MOLDER Appointment [facility] [address] [facility] [place] [address] Zayra Powell, DATABASES COMPUTER CONSULTANT [address] [facility] [place] [address] 10/16/2024 3:30 PM TOILET PRODUCTS MOLDER Office Visit [facility] [place] [address] Brit Gonzáles MD [address] [place] [address] documented as of this encounter Goals Goal Patient Goal Type Associated Problems Recent Progress Patient-Stated? Author Family - family caregiver with be involved in care transitions and discharge planning Lifestyle Karen Diane RN documented as of this encounter Procedures Procedure Name Priority Date/Time Associated Diagnosis Comments RENAL FUNCTION PANEL Routine 08/10/2023 11:48 AM TOILET PRODUCTS MOLDER CKD (chronic kidney disease) stage 3, GFR 30-59 ml/min ([facility]) CBC W/DIFF AUTOMATED Routine 08/10/2023 11:48 AM TOILET PRODUCTS MOLDER CKD (chronic kidney disease) stage 3, GFR 30-59 ml/min ([facility]) ALBUMIN URINE RANDOM W/CREATININE Routine 08/10/2023 11:46 AM TOILET PRODUCTS MOLDER CKD (chronic kidney disease) stage 3, GFR 30-59 ml/min ([facility]) documented in this encounter Results * (ABNORMAL) RENAL FUNCTION PANEL (08/10/2023 11:48 AM [facility]) SODIUM S/P/B 135(L) 136 - 145 MMOL/L 08/10/2023 12:18 PM [facility] POTASSIUM S/P/B 4.6 3.5 - 5.1 MMOL/L 08/10/2023 12:18 PM [facility] CHLORIDE S/P/B 99 98 - 107 MMOL/L 08/10/2023 12:18 PM [facility] CO2 30.6 21.0 - 32.0 MMOL/L 08/10/2023 12:18 PM [facility] GLUCOSE 221(H) 70 - 99 MG/DL 08/10/2023 12:18 PM [facility] Comment: FASTING GLUCOSE 100 TO 125 MG/DL IS CONSISTENT WITH IMPAIRED FASTING GLUCOSE. FASTING GLUCOSE >125 MG/DL IS CONSISTENT WITH DIABETES. RANDOM GLUCOSE >200 MG/DL WITH HYPERGLYCEMIC SYMPTOMS IS CONSISTENT WITH DIABETES. PER ADA GUIDELINES BUN 42(H) 6 - 24 MG/DL 08/10/2023 12:18 PM [facility] CREATININE S/P/B 1.71(H) 0.70 - 1.30 MG/DL 08/10/2023 12:18 PM [facility] CALCIUM S/P/B 9.3 8.4 - 10.5 MG/DL 08/10/2023 12:18 PM [facility] ALBUMIN S/P/B 3.2(L) 3.4 - 5.0 G/DL 08/10/2023 12:18 PM [facility] PHOSPHORUS 4.7 2.6 - 4.7 MG/DL 08/10/2023 12:18 PM [facility] ANION GAP 5.4 5.0 - 15.0 MMOL/L 08/10/2023 12:18 PM [facility] OSMOLALITY (CALC) 297 MOSM/KG 023 12:18 PM [facility] Comment:REFERENCE RANGE NOT ESTABLISHED GFR ESTIMATE 43(L) >89 ML/MIN/1. 73 M2 08/10/2023 12:18 PM [facility] GFR NOTES GFR REFERENCE S: 08/10/2023 12:18 PM [facility] Comment: THE ESTIMATED GFR [...] <15 ml/min/1.73 m2 08/10/2023 11:4 8 AM TOILET PRODUCTS MOLDER us Theresa Sheriff PA-C LABORATORY Final Resu lt [facility] [address] [place] [address], * (ABNORMAL) CBC W/DIFF AUTOMATED (08/10/2023 11:48 AM TOILET PRODUCTS MOLDER) WBC 8.36 4.00 - 10.80 x10'3/uL 08/10/2023 12:16 PM TOILET PRODUCTS MOLDER [facility] RBC 4.39(L) 4.50 - 6.10 x10'6/uL 08/10/2023 12:16 PM TOILET PRODUCTS MOLDER [facility] HGB 9.8(L) 13.0 - 18.0 G/DL 08/10/2023 12:16 PM TOILET PRODUCTS MOLDER [facility] HCT 35.2(L) 37.0 - 52.0 % 08/10/2023 12:16 PM TOILET PRODUCTS MOLDER [facility] MCV 80.2 78.0 - 100.0 FL 08/10/2023 12:16 PM TOILET PRODUCTS MOLDER [facility] MCH 22.3(L) 27.0 - 31.0 PG 08/10/2023 12:16 PM TOILET PRODUCTS MOLDER [facility] MCHC 27.8(L) 33.0 - 36.0 G/DL 08/10/2023 12:16 PM [facility] RDW 18.9(H) 11.5 - 14.5 % 08/10/2023 12:16 PM TOILET PRODUCTS MOLDER [facility] PLT 218 150 - 350 x10'3/uL 08/10/2023 12:16 PM [facility] MPV 9.6 7.4 - 10.4 FL 08/10/2023 12:16 PM [facility] CBC COMMENT NORMAL REFERENCE RANGE NOT ESTABLISHED FOR THE PROPORTIONAL LEUKOCYTE DIFFERENTIAL. 08/10/2023 12:16 PM TOILET PRODUCTS MOLDER [facility] NEUTROPHILS % 66.0 % 08/10/2023 12:29 PM [facility] LYMPHOCYTES % 14.1 % 08/10/2023 12:29 PM [facility] MONOCYTES % 10.3 % 08/10/2023 12:29 PM [facility] EOSINOPHILS % 8.5 % 08/10/2023 12:29 PM TOILET PRODUCTS MOLDER [facility] BASOPHILS % 0.7 % 08/10/2023 12:29 PM TOILET PRODUCTS MOLDER [facility] IMMATURE GRANS % 0.4 % 08/10/20 12:29 PM TOILET PRODUCTS MOLDER [facility] NRBC 0.0 % 08/10/2023 12:29 PM [facility] ABS. NEUTROPHILS 5.52 1.60 - 8.30 x10'3/uL 08/10/2023 12:29 PM TOILET PRODUCTS MOLDER [facility] ABS. LYMPHOCYTES 1.18 0.80 - 4.70 x10'3/uL 08/10/2023 12:29 PM TOILET PRODUCTS MOLDER [facility] ABS. MONOCYTES 0.86 0.00 - 1.50 x10'3/uL 08/10/2023 12:29 PM TOILET PRODUCTS MOLDER [facility] ABS. EOSINOPHILS 0.71(H) 0.00 - 0.40 x10'3/uL 08/10/2023 12:29 PM TOILET PRODUCTS MOLDER [facility] ABS. BASOPHILS 0.06 0.00 - 0.20 x10'3/uL 08/10/2023 12:29 PM TOILET PRODUCTS MOLDER [facility] ABS. IMMATURE GRANULOCYTES 0.03 0.00 - 0.03 x10'3/uL 08/10/2023 12:29 PM TOILET PRODUCTS MOLDER [facility] ABS. NUCLEATED RBC'S 0.00 0.00 x10'3/uL 08/10/2023 12:29 PM [facility] PLT MORPH. NORMAL 08/10/2023 12:29 PM [facility] RBC MORPHOLOGY 2+ 08/10/2023 12:29 PM [facility] Comment: ANISOCYTOSIS 2+ HYPOCHROMASIA 08/10/2023 11:4 8 AM TOILET PRODUCTS MOLDER Theresa Sheriff PA-C LABORATORY Final Resu lt [facility] [address] [facility] [place] [address], * (ABNORMAL) ALBUMIN CREATININE URINE RANDOM (08/10/2023 11:46 AM TOILET PRODUCTS MOLDER) ALBUMIN (U) 2.0 MG/DL 08/10/2023 12:17 PM [facility] Comment:REFERENCE RANGE NOT ESTABLISHED CREATININE RANDOM (U) 38.8 MG/DL 08/10/2023 12:17 PM [facility] Comment:REFERENCE RANGE NOT ESTABLISHED ALBUMIN/CREAT RATIO 51.6(H) <30 MG/G 08/10/2023 12:17 PM [facility] Comment: NORMAL TO MILDLY INCREASED ALBUMINURIA: <30 MG/G MODERATELY INCREASED ALBUMINURIA: 30 TO 300 MG/G SEVERELY INCREASED ALBUMINURIA: >300 MG/G PER KDIGO URINE SPECIMEN / Unknown 08/10/2023 11:46 AM TOILET PRODUCTS MOLDER Theresa Sheirff PA-C URINE ORDERABLES Final Res ult [facility] [address] [place] [address], documented in this encounter Visit Diagnoses Diagnosis CKD (chronic kidney disease) stage 3, GFR 30-59 ml/min ([facility]) Chronic kidney disease, Stage III (moderate) documented in this encounter Additional Health Concerns Assessment Noted Time PHQ-9 Depression Total Score: 0 12/02/19 22 1:18 PM CDT documented as of this encounter Care Teams Holistic Health Practitioner Relationship Specialty Start Date End Date Megan Infante MD [address] [place] [phone] PCP - General FAMILY PRACTICE 04/06/16 Piyush Pandey MD [place] Cadd Operator CARDIOVASCULAR DISEASE 04/06/16 12/28/23 Sharmila Davis APRN, SYRUP SHED SUPERVISOR-C [address] [facility] [address] [place] [phone] NURSE PRACTITIONER 01/04/17 04/03/24 Zaki Ortiz MD [address] [facility] [address] [place] [address] Consulting Physician PULMONARY DISEASE 07/12/19 Concetta Acevedo MD [address] [place] [address] Surgeon NEUROLOGICAL SURGERY 12/16/22 Jeff Graec MD [address] [place] [address] Consulting Physician INTERNAL MEDICINE 02/11/23 documented as of this encounter
--- OUTSIDE RECORDS SUMMARY | 2024-09-03 19:08 | XMS_ITS | Encounter Summary ---
Author Organization [facility] Address Critical access hospital6 [facility] [place] [address] [place] [address] Care Team Providers Care Raisin Separator Operator Name Role Phone Piyush Pandey MD Unavailable Unavailabl e Megan Infante MD Primary Care Provider [phone] Sharmila Davis APRN, NP-C Unavailable [phone] Zaki Ortiz MD Unavailable [phone] Concetta Acevedo MD Unavailable + [phone] Jeff Grace MD Unavailable Encounter Details Date Type Department Care Team (Latest Contact Info) Description 11/17/2023 Travel Social History Tobacco Use Types Packs/Day Years Used Date Smoking Tobacco: Former Smokeless Tobacco: Former Chew Alcohol Use Standard Drinks/Week Comments Yes 0 (1 standard drink = 0.6 oz pur e alcohol) 6 beers per week [facility] Utilities Answer Date Recorded In the past 12 months has [employer], gas, oil, or water [employer] threatened to shut off services in your [...] declined 02/16/2023 How often do you attend anglican or jainism serv ices? Patient declined 02/16/2023 Do you belong to any clubs o r organizations such as anglican groups, unions, fraternal or athletic groups, or [...] Date Author Status No 07/12/2023 6:58 PM PROJECT COORDINATOR Liliana Gutierrez, RN Active documented in this encounter Plan of Treatment Upcoming Encounters Date Type Department Care Team (Late st Contact Info) Description 09/25/2024 2:00 PM PRO[address]ATOR Appoint[address] [facility] [address] [facility] [facility] [address] Zayra Powell, MULTIPLE SPINDLE ROUTER OPERATOR [address] [facility] [facility] [place] [address] 10/16/2024 3:30 PM PROJECT COORDINATOR Office Visit [facility] [address] [address] Brit Gonzáles MD [address] [place] [address] documented as of this encounter [...] documented as of this encounter Care Teams Raisin Separator Operator Relationship Specialty Start Date End Date Megan Infante MD [address] [facility] [facility] [place] [address] PCP - General FAMILY PRACTICE 04/06/16 Piyush Pandey MD [place] Organizational Psychologist CARDIOVASCULAR DISEASE 04/06/16 12/28/23 Sharmila Davis APRN, RADIATION PROTECTION SPECIALIST-C [address] [place] [address] [address] [place] [address] NURSE PRACTITIONER 01/04/17 04/03/24 Zaki Ortiz MD [address] [facility] [address] [place] [address] Consulting Physician PULMONARY DISEASE 07/12/19 Concetta Acevedo MD [address] [place] [phone] Surgeon NEUROLOGICAL SURGERY 12/16/22 Jeff Grace MD [address] [place] [address] Consulting Physician INTERNAL MEDICINE 02/11/23 documented as of this encounter
--- OUTSIDE RECORDS SUMMARY | 2024-09-03 19:08 | XMS_ITS | Encounter Summary ---
Author Organization [facility] Address [facility] [facility] [place] [address] [place] [address] Care Team Providers Care Tax Compliance Agent Name Role Phone Piyush Pandey MD Unavailable Unavailabl e Megan Infante MD Primary Care Provider [phone] Sharmila Davis APRN, NP-C Unavailable [phone] Zaki Ortiz MD Unavailable [phone] Concetta Acevedo MD Unavailable + [phone] Jeff Grace MD Unavailable Encounter Details Date Type Department Care Team (Latest Contact Info) Description 08/06/2023 Travel Social History Tobacco Use Types Packs/Day Years Used Date Smoking Tobacco: Former Smokeless Tobacco: Former Chew Alcohol Use Standard Drinks/Week Comments Yes 0 (1 standard drink = 0.6 oz pur e alcohol) 6 beers per week [facility] Utilities Answer Date Recorded In the past 12 months has [employer], gas, oil, or water [employer] threatened to shut off services in your [...] How often do you attend druze or anabaptist serv ices? Patient declined 02/16/2023 [...] on to questions 3-9 0 12/01/2021 [facility] of Occupat ional Health - [...] Date Author Status No 07/12/2023 6:58 PM NUT CHOPPER Liliana Gutierrez, RN Active documented in this encounter Plan of Treatment Upcoming Encounters Date Type Department Care Team (Late st Contact Info) Description 09/25/2024 2:[address] [facility] [address] [facility] [facility] [address] Zayra Powell, PLANS EXAMINER [address] [place] [address] 10/16/2024 3:30 PM NUT CHOPPER Office Visit [facility] [address] [facility] [place] [address] Brit Gonzáles MD [address] [place] [address] documented as of this encounter [...] documented as of this encounter Care Teams Tax Compliance Agent Relationship Specialty Start Date End Date Megan Infante MD [address] [address] PCP - General FAMILY PRACTICE 04/06/16 Piyush Pandey MD [place] Cloth Cutter CARDIOVASCULAR DISEASE 04/06/16 12/28/23 Sharmila Davis APRN, PRINTING SALES REPRESENTATIVE-C [address] [place] [address] [address] [place] [address] NURSE PRACTITIONER 01/04/17 04/03/24 Zaki Ortiz MD [address] [facility] [place] [place] [address] [place] [address] Consulting Physician PULMONARY DISEASE 07/12/19 Concetta Acevedo MD [address] [place] [address] Surgeon NEUROLOGICAL SURGERY 12/16/22 Jeff Grace MD [address] [place] [address] Consulting Physician INTERNAL MEDICINE 02/11/23 documented as of this encounter
--- OUTSIDE RECORDS SUMMARY | 2024-09-03 19:08 | XMS_ITS | Encounter Summary ---
Author Organization [facility] Address [facility]6 [facility] [place] [address] [place] [address] Care Team Providers Care Salvage Engineer Name Role Phone Megan Infante MD Primary Care Provider [phone] Sharmila Davis APRN, NP-C Unavailable [phone] Zaki Ortiz MD Unavailable [phone] Concetta Acevedo MD Unavailable + [phone] Jeff Grace MD Unavailable Brit Gonzáles MD Unavailable Encounter Details Date Type Department Care Team (Latest Contact Info) Description 03/06/2024 Travel Social History Tobacco Use Types Packs/Day Years Used Date Smoking Tobacco: Former Smokeless Tobacco: Former Chew Alcohol Use Standard Drinks/Week Comments Yes 0 (1 standard drink = 0.6 oz pur e alcohol) 4 beers per week [facility] Utilities Answer Date Recorded In the past 12 months has [employer], [employer], oil, or water [employer] threatened to shut off services in your [...] declined 02/16/2023 How often do you attend rastafari or buddhism serv ices? Patient declined 02/16/2023 Do you belong to any clubs o r organizations such as rastafari groups, unions, fraternal or athletic groups, or [...] Date Author Status No 07/12/2023 6:58 PM ACCESS ASSOC Liliana Gutierrez, YUNI Active documented in this encounter Plan of Treatment Upcoming Encounters Date Type Department Care Team (Late st Contact Info) Description 09/25/2024 2:[address] [facility] [address] [facility] [place] [address] Zayra Powell, MANIFEST/ORDER ORGANIZER PRINT ORDERS [address] [place] [address] 10/16/2024 3:30 PM ACCESS ASSOC Office Visit [facility] [address] [facility] [place] [place] [address] Brit Gonzáles MD [address] [place] [address] documented as of this encounter Goals Goal Patient Goal Type Associated Problems Recent Progress Patient-Stated? Author Family - family caregiver with be involved in care transitions and discharge planning Lifestyle No Karen Qeuzada, YUNI documented as of this encounter Visit Diagnoses Not on filedocumented in this encounter Additional Health Concerns Assessment Noted Time PHQ-9 Depression Total Score: 0 12/02/19 22 1:18 PM CDT documented as of this encounter Care Teams Salvage Engineer Relationship Specialty Start Date End Date Megan Infante MD [address] [facility] [place] [address] PCP - General FAMILY PRACTICE 04/06/16 Sharmila Davis APRN, CHEMISTRY LABORATORY TECHNICIAN-C [address] [place] [address] NURSE PRACTITIONER 01/04/17 04/03/24 Zaki Ortiz MD [address] [place] [phone] Consulting Physician PULMONARY DISEASE 07/12/19 Concetta Acevedo MD [address] [place] [address] Surgeon NEUROLOGICAL SURGERY 12/16/22 Jeff Grace MD [address] [place] [address] Consulting Physician INTERNAL MEDICINE 02/11/23 Brit Gonzáles MD [address] [place], [place] 7[address] Consulting Physician CARDIOVASCULAR DISEASE 12/29/23 documented as of this encounter
--- OUTSIDE RECORDS SUMMARY | 2024-09-03 19:08 | XMS_ITS | Encounter Summary ---
Author Organization [facility] Address [facility]6 [facility] [place] [address] [place] [address] Care Team Providers Care Supervisor Wet End Name Role Phone Piyush Pandey MD Unavailable Unavailabl e Megan Infante MD Primary Care Provider [phone] Sharmila Davis APRN, NP-C Unavailable [phone] Zaki Ortiz MD Unavailable [phone] Concetta Acevedo MD Unavailable + [phone] Jeff Grace MD Unavailable Encounter Details Date Type Department Care Team (Latest Contact Info) Description 08/24/2023 Travel Social History Tobacco Use Types Packs/Day Years Used Date Smoking Tobacco: Former Smokeless Tobacco: Former Chew Alcohol Use Standard Drinks/Week Comments Yes 0 (1 standard drink = 0.6 oz pur e alcohol) 6 beers per week [facility] Utilities Answer Date Recorded In the past 12 months has [employer], gas, oil, or water [employer] threatened to shut off services in your [...] How often do you attend alevism or mormonism serv ices? Patient declined 02/16/2023 [...] place to sleep or slept in a nursing home (including now)? Patient declined 07/12/2023 Sex [...] Date Author Status No 07/12/2023 6:58 PM OSTEOPATHIC MEDICINE TEACHER Liliana Gutierrez, RN Active documented in this encounter Plan of Treatment Upcoming Encounters Date Type Department Care Team (Late st Contact Info) Description 09/25/2024 2:00 PM OSTEOPATHIC MEDICINE TEACHER Appointment [facility] [address] [facility] [place] [address] Zayra Powell, CAMPUS RECRUITING INTERN [address] [facility] [place] [address] 10/16/2024 3:30 PM OSTEOPATHIC MEDICINE TEACHER Office Visit [facility] [address] [facility] [place] [address] Brit Gonzáles MD 619 [place] [address] documented as of this encounter [...] documented as of this encounter Care Teams Supervisor Wet End Relationship Specialty Start Date End Date Megan Infante MD [address] [facility] [place] [address] PCP - General FAMILY PRACTICE 04/06/16 Piyush Pandey MD [place] Photocomposing Keyboard Operator CARDIOVASCULAR DISEASE 04/06/16 12/28/23 Sharmila Davis APRN, FURNITURE CLEANER-C [address] [place] [address] 4P[address] [place] [address] NURSE PRACTITIONER 01/04/17 04/03/24 Zaki Ortiz MD [address] [facility] [address] [place] [address] Consulting Physician PULMONARY DISEASE 07/12/19 Concetta Acevedo MD [address] [place] [address]96302 Surgeon NEUROLOGICAL SURGERY 12/16/22 Jeff Grace MD 619 [place] [address] Consulting Physician INTERNAL MEDICINE 02/11/23 documented as of this encounter
--- OUTSIDE RECORDS SUMMARY | 2024-09-03 19:08 | XMS_ITS | Encounter Summary ---
Author Organization [facility] Address [facility]6 [facility] [place] [address] [place] [address] Care Team Providers Care Cloth Washer Back Tender Name Role Phone Megan Infante MD Primary Care Provider [phone] Sharmila Davis APRN, NP-C Unavailable Zaki Ortiz MD Unavailable [phone] Concetta Acevedo MD Unavailable + [phone] Jeff Grace MD Unavailable Brit Gonzáles MD Unavailable Reason for Visit * Reason Onset Date Comments Error 03/21/2024 Encounter Details Date Type Department Care Team (Late st Contact Info) Description 03/21/2024 Telephone [facility] 619 [place] [address] Brit Gonzáles MD 619 [place] [address] Error Social History Tobacco Use Types Packs/Day Years Used Date Smoking Tobacco: Former Smokeless Tobacco: Former Chew Alcohol Use Standard Drinks/Week Comments Yes 0 (1 standard drink = 0.6 oz pur e alcohol) 4 beers per week [facility] [...] st Contact Info) Description 09/25/2024 2:00 PM JAMB CUTTER Appointment [facility] [address] [place] [address] Zayra Powell, JOGGLE PRESS OPERATOR [address] [facility] [place] [address] 10/16/2024 3:30 PM JAMB CUTTER Office Visit [facility] [address] [place] [phone] Brit Gonzáles MD [address] [place] [address]03409 documented as of this encounter Goals Goal [...] documented as of this encounter Care Teams Cloth Washer Back Tender Relationship Specialty Start Date End Date Megan Infante MD [address] [facility] [place] [phone] PCP - General FAMILY PRACTICE 04/06/16 Sharmila Davis, ENVIRONMENTAL OFFICER, OR DIRECTOR-C [address] [phone] NURSE PRACTITIONER 01/04/17 04/03/24 Zaki Ortiz MD [address] [phone] Consulting Physician PULMONARY DISEASE 07/12/19 Concetta Acevedo MD [address] [place] [address] Surgeon NEUROLOGICAL SURGERY 12/16/22 Jeff Grace MD [address] [place] [address] Consulting Physician INTERNAL MEDICINE 02/11/23 Brit Gonzáles MD 9 [place] [address] Consulting Physician CARDIOVASCULAR DISEASE 12/29/23 documented as of this encounter
--- OUTSIDE RECORDS SUMMARY | 2024-09-03 19:08 | XMS_ITS | Encounter Summary ---
Author Organization [facility] Address [facility]6 [facility] [place] [address] [place] [address] Care Team Providers Care Superintendent General Name Role Phone Megan Infante MD Primary Care Provider [phone] Sharmila Davis APRN, NP-C Unavailable [phone] Zaki Ortiz MD Unavailable [phone] Concetta Acevedo MD Unavailable + [phone] Jeff Grace MD Unavailable Brit Gonzáles MD Unavailable Encounter Details Date Type Department Care Team (Latest Contact Info) Description 03/15/2024 Travel Social History Tobacco Use Types Packs/Day Years Used Date Smoking Tobacco: Former Smokeless Tobacco: Former Chew Alcohol Use Standard Drinks/Week Comments Yes 0 (1 standard drink = 0.6 oz pur e alcohol) 4 beers per week [facility] Utilities Answer Date Recorded In the past 12 months has [employer], [employer], oil, or water [employer] threatened to shut off services in your [...] declined 02/16/2023 How often do you attend tenriism or yarsani serv ices? Patient declined 02/16/2023 Do you belong to any clubs o r organizations such as tenriism groups, unions, fraternal or athletic groups, or [...] move on to questions 3-9 0 12/01/2021 [facility] - Occupational [...] Date Author Status No 07/12/2023 6:58 PM ACTUARIAL CLERK Liliana Gutierrez, YUNI Active documented in this encounter Plan of Treatment Upcoming Encounters Date Type Department Care Team (Late st Contact Info) Description 09/25/2024 2:00 PM ACTUARIAL CLERK Appointment [facility] [address] [facility] [place] [address] Zayra Powell, INSTRUCTOR WEAVING [address] [place] [address] 10/16/2024 3:30 PM ACTUARIAL CLERK Office Visit [facility] [address] [facility] [place] [address] Brit Gonzáles MD [address] [place] [address] documented as of this encounter Goals [...] documented as of this encounter Care Teams Superintendent General Relationship Specialty Start Date End Date Megan Infante MD [address] [facility] [place] [address] PCP - General FAMILY PRACTICE 04/06/16 Sharmila Davis APRN, HULL MOLDER-C [address] [place] [phone] NURSE PRACTITIONER 01/04/17 04/03/24 Zaki Ortiz MD [address] [place] [phone] Consulting Physician PULMONARY DISEASE 07/12/19 Concetta Acevedo MD [address] [place] [address] Surgeon NEUROLOGICAL SURGERY 12/16/22 Jeff Grace MD [address] [place] [address] Consulting Physician INTERNAL MEDICINE 02/11/23 Brit Gonzáles MD [address] [place], [place] [phone] Consulting Physician CARDIOVASCULAR DISEASE 12/29/23 documented as of this encounter
--- OUTSIDE RECORDS SUMMARY | 2024-09-03 19:09 | XMS_ITS | Encounter Summary ---
Author Organization [facility] Address [facility]6 [place] [address] [place] [address] Care Team Providers Care Crop Roller Name Role Phone Piyush Pandey MD Unavailable Unavailabl e Megan Infante MD Primary Care Provider [phone] Sharmila Davis APRN, NP-C Unavailable [phone] Zaki Ortiz MD Unavailable [phone] Concetta Acevedo MD Unavailable + [phone] Jeff Grace MD Unavailable Encounter Details Date Type Department Care Team (Latest Contact Info) Description 07/20/2023 11:22 AM PROVIDER RELATIONS MANAGER - 07/20/2023 11:59 PM [facility] Hospital Encounter [facility] [address] [place] [address] Sapphire Peterson, PRODUCTION SANITIZER 1 [place] [address] Discharge Disposition: Home or Self Care (Routine Discharge) Social History Tobacco Use Types Packs/Day Years Used Date Smoking Tobacco: Former Smokeless Tobacco: Former Chew Alcohol Use Standard Drinks/Week Comments Yes 0 (1 standard drink = 0.6 oz pur e alcohol) 6 beers per week [facility] Utilities Answer Date Recorded In the past 12 months has [employer], gas, oil, or water company threatened [...] How often do you attend scientologist or spiritism serv ices? Patient declined 02/16/2023 [...] by mouth 2 (two) times daily. 10/09/2022 clindamycin (CLEOCIN) 300 MG capsule Take 1 capsule (300 mg total) by mouth 3 (three) times daily for 10 days. 30 capsule 07/16/2023 3 cyclobenzaprine (FLEXERIL) 10 MG tablet Take 1 [...] st Contact Info) Description 09/25/2024 2:00 PM PROVIDER RELATIONS MANAGER Appointment [facility] [address] [place] [address] Zayra Powell, ADMINISTRATIVE VOLUNTEER [address] [place] [address] 10/16/2024 3:30 PM PROVIDER RELATIONS MANAGER Office Visit [facility] [facility] [address] [place] [address] Brit Gonzáles MD 619 [place] [address] documented as of this encounter Goals Goal Patient Goal Type Associated Problems Recent Progress Patient-Stated? Author Family - family caregiver with be involved in care transitions and discharge planning Lifestyle No Karen Quezada RN documented as of this encounter Procedures Procedure Name Priority Date/Time Associated Diagnosis Comments CBC W/DIFF AUTOMATED Routine 07/20/2023 11:42 AM PROVIDER RELATIONS MANAGER Anemia documented in this encounter Results * (ABNORMAL) CBC W/DIFF AUTOMATED (07/20/2023 11:42 AM PROVIDER RELATIONS MANAGER) WBC 8.00 4.00 - 10.80 x10'3/uL 07/20/2023 12:03 PM PROVIDER RELATIONS MANAGER [facility] RBC 3.63(L) 4.50 - 6.10 x10'6/uL 07/20/2023 12:03 PM [facility] HGB 8.1(L) 13.0 - 18.0 G/DL 07/20/2023 12:03 PM [facility] HCT 29.1(L) 37.0 - 52.0 % 07/20/2023 12:03 PM [facility] MCV 80.2 78.0 - 100.0 FL 07/20/2023 12:03 PM [facility] MCH 22.3(L) 27.0 - 31.0 PG 07/20/2023 12:03 PM PROVIDER RELATIONS MANAGER [facility] MCHC 27.8(L) 33.0 - 36.0 G/DL 07/20/2023 12:03 PM [facility] RDW 21.6(H) 11.5 - 14.5 % 07/20/2023 12:03 PM [facility] PLT 232 150 - 350 x10'3/uL 07/20/2023 12:03 PM [facility] MPV 9.9 7.4 - 10.4 FL 07/20/2023 12:03 PM [facility] CBC COMMENT NORMAL REFERENCE RANGE NOT ESTABLISHED FOR THE PROPORTIONAL LEUKOCYTE DIFFERENTIAL. 07/20/2023 12:03 PM [facility] NEUTROPHILS % 69.1 % 07/20/2023 1:30 PM [facility] LYMPHOCYTES % 14.4 % 07/20/2023 1:30 PM [facility] MONOCYTES % 10.6 % 07/20/2023 1:30 PM [facility] EOSINOPHILS % 5.0 % 07/20/2023 1:30 PM PROVIDER RELATIONS MANAGER [facility] BASOPHILS % 0.5 % 07/20/2023 1:30 PM PROVIDER RELATIONS MANAGER [facility] IMMATURE GRANS % 0.4 % 07/20/20 1:30 PM PROVIDER RELATIONS MANAGER [facility] NRBC 0.0 % 07/20/2023 1:30 PM PROVIDER RELATIONS MANAGER [facility] ABS. NEUTROPHILS 5.53 1.60 - 8.30 x10'3/uL 07/20/2023 1:30 PM PROVIDER RELATIONS MANAGER [facility] ABS. LYMPHOCYTES 1.15 0.80 - 4.70 x10'3/uL 07/20/2023 1:30 PM PROVIDER RELATIONS MANAGER [facility] ABS. MONOCYTES 0.85 0.00 - 1.50 x10'3/uL 07/20/2023 1:30 PM PROVIDER RELATIONS MANAGER [facility] ABS. EOSINOPHILS 0.40 0.00 - 0.40 x10'3/uL 07/20/2023 1:30 PM PROVIDER RELATIONS MANAGER [facility] ABS. BASOPHILS 0.04 0.00 - 0.20 x10'3/uL 07/20/2023 1:30 PM PROVIDER RELATIONS MANAGER [facility] ABS. IMMATURE GRANULOCYTES 0.03 0.00 - 0.03 x10'3/uL 07/20/2023 1:30 PM PROVIDER RELATIONS MANAGER [facility] ABS. NUCLEATED RBC'S 0.00 0.00 x10'3/uL 07/20/2023 1:30 PM PROVIDER RELATIONS MANAGER [facility] PLT MORPH. NORMAL 07/20/2023 1:30 PM PROVIDER RELATIONS MANAGER [facility] RBC MORPHOLOGY 2+ 07/20/2023 1:30 PM PROVIDER RELATIONS MANAGER [facility] Comment: HYPOCHROMASIA 1+ ANISOCYTOSIS 1+ POIKILOCYTOSIS 07/20/2023 11:4 2 AM PROVIDER RELATIONS MANAGER us Sapphire Peterson NP LABORATORY Final Result [facility] [address] [place] [address], documented in this encounter Visit Diagnoses Diagnosis Anemia Anemia, unspecified documented in this encounter Additional Health Concerns Assessment Noted Time PHQ-9 Depression Total Score: 0 12/02/19 22 1:18 PM CDT documented as of this encounter Care Teams Crop Roller Relationship Specialty Start Date End Date Megan Infante MD [address] [facility] [place] [address] PCP - General FAMILY PRACTICE 04/06/16 Piyush Pandey MD [facility] Intake Technician CARDIOVASCULAR DISEASE 04/06/16 12/28/23 Sharmila Davis APRN, PRODUCTION SANITIZER-C [address] [place] [phone] NURSE PRACTITIONER 01/04/17 04/03/24 Zaki Ortiz MD [address] [place] [phone] Consulting Physician PULMONARY DISEASE 07/12/19 Concetta Acevedo MD [address] [place] [address] Surgeon NEUROLOGICAL SURGERY 12/16/22 Jeff Grace MD [address] [place] [address] Consulting Physician INTERNAL MEDICINE 02/11/23 documented as of this encounter
--- OUTSIDE RECORDS SUMMARY | 2024-09-03 19:09 | XMS_ITS | Encounter Summary ---
Author Organization [facility] Address [address] [place] [address]. [place] [address] [place] [address] Care Team Providers Care Commercial Roofing Estimator Name Role Phone Piyush Pandey MD Unavailable Unavailabl e Megan Infante MD Primary Care Provider [phone] Sharmila Davis APRN, NP-C Unavailable [phone] Zaki Ortiz MD Unavailable [phone] Concetta Acevedo MD Unavailable + [phone] Jeff Grace MD Unavailable Encounter Details Date Type Department Care Team (Late st Contact Info) Description 07/27/2023 11:00 AM RESIDENTIAL CARPET INSTALLER - 07/27/2023 11:59 PM [facility] Hospital Encounter [facility] [address] [place] [address] Zayra Powell, [facility] [address] [place] [address] Discharge Disposition: Home or Self Care (Routine Discharge) Social History Tobacco Use Types Packs/Day Years Used Date Smoking Tobacco: Former Smokeless Tobacco: Former Chew Alcohol Use Standard Drinks/Week Comments Yes 0 (1 standard drink = 0.6 oz pur e alcohol) 6 beers per week [facility] Utilities Answer Date Recorded In the [...] declined 02/16/2023 How often do you attend rastafarian or congregation serv ices? Patient declined 02/16/2023 Do you belong to any clubs o r organizations such as rastafarian groups, unions, fraternal or athletic groups, or [...] Progress Notes * Mary Moore RN - 07/27/2023 11:00 AM CSTEncounter addended by: Mary Moore RN on: 07/27/2023 2:40 PM Actions taken: MAR administration accepted DENTIAL CARPET INSTALLER documented in this encounter Plan of Treatment Upcoming Encounters Date Type Department Care Team (Late st Contact Info) Description 09/25/2024 2:00 PM RESIDENTIAL CARPET INSTALLER Appointment [facility] [address] [place] [address] Zayra Powell, VEST BACKER [address] [place] [address] 10/16/2024 3:30 PM RESIDENTIAL CARPET INSTALLER Office Visit [facility] [address] [place] [phone] Brit Gonzáles MD 619 [place] [address] documented as of this encounter Goals Goal Patient Goal Type Associated Problems Recent Progress Patient-Stated? 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 Disorder of the skin and subcutaneous tissue, unspecified documented in this encounter Administered Medications Inactive Administered Medications - up to 3 most recent administrations Medication Order MAR Action Action Date Dose Rate Site lidocaine 2 % URO-JET jelly Topical, Once, 1 dose, On Wed07/27/23 at 1215Indications: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),Disorder of the skin and subcutaneous tissue, unspecified Given 07/27/2023 11:00 AM RESIDENTIAL CARPET INSTALLER documented in this encounter Additional Health Concerns Assessment Noted Time PHQ-9 Depression Total Score: 0 12/02/19 22 1:18 PM CDT documented as of this encounter Care Teams Commercial Roofing Estimator Relationship Specialty Start Date End Date Megan Infante MD [address] [facility] [place] [phone] PCP - General FAMILY PRACTICE 04/06/16 Piyush Pandey MD [employer] Technical Specialist CARDIOVASCULAR DISEASE 04/06/16 12/28/23 Sharmila Davis APRN, ELECTROFORMER-C [address] [place] [phone] NURSE PRACTITIONER 01/04/17 04/03/24 Zaki Ortiz MD [address] [place] [phone] Consulting Physician PULMONARY DISEASE 07/12/19 Concetta Acevedo MD [address] [place] [phone] Surgeon NEUROLOGICAL SURGERY 12/16/22 Jeff Grace MD [address] [place] [address] Consulting Physician INTERNAL MEDICINE 02/11/23 documented as of this encounter
--- OUTSIDE RECORDS SUMMARY | 2024-09-03 19:09 | XMS_ITS | Encounter Summary ---
Author Organization [facility] Address [facility] [place] [address] [place] [address] Care Team Providers Care Integrated Specialist Name Role Phone Piyush Pandey MD Unavailable Unavailabl e Megan Infante MD Primary Care Provider [phone] Sharmila Davis APRN, NP-C Unavailable [phone] Zaki Ortiz MD Unavailable [phone] Concetta Acevedo MD Unavailable + [phone] Jeff Grace MD Unavailable Encounter Details Date Type Department Care Team (Latest Contact Info) Description 07/22/2023 Travel Social History Tobacco Use Types Packs/Day Years Used Date Smoking Tobacco: Former Smokeless Tobacco: Former Chew Alcohol Use Standard Drinks/Week Comments Yes 0 (1 standard drink = 0.6 oz pur e alcohol) 6 beers per week [facility] Utilities Answer Date Recorded In the past 12 months has [employer], gas, oil, or water [employer] threatened to shut off services in your [...] How often do you attend anglican or judaism serv ices? Patient declined 02/16/2023 [...] Date Author Status No 07/12/2023 6:58 PM CAREER DEVELOPMENT MANAGER Liliana Gutierrez, RN Active documented in this encounter Plan of Treatment Upcoming Encounters Date Type Department Care Team (Late st Contact Info) Description 09/25/2024 2:00 PM CAREER DEVELOPMENT MANAGER Appointment [facility] [address] [place] [address] Zayra Powell, DELIVERER OUTSIDE [address] [place] [address] 10/16/2024 3:30 PM CAREER DEVELOPMENT MANAGER Office Visit [facility] [address] [place] [address] Brit Gonzáles MD [address] [place] [address] documented as of this encounter [...] documented as of this encounter Care Teams Integrated Specialist Relationship Specialty Start Date End Date Megan Infante MD [address] [place] [address] PCP - General FAMILY PRACTICE 04/06/16 Piyush Pandey MD [place] Grouter Helper CARDIOVASCULAR DISEASE 04/06/16 12/28/23 Sharmila Davis APRN, PACKAGING LINE OPERATOR-C [address] [place] [address] [id number] [place] [address] NURSE PRACTITIONER 01/04/17 04/03/24 Zaki Ortiz MD [address] [facility] [address] [place] [address] Consulting Physician PULMONARY DISEASE 07/12/19 Concetta Acevedo MD [address] [place] [address] [id number] Surgeon NEUROLOGICAL SURGERY 12/16/22 Jeff Grace MD [address] [place] [address] Consulting Physician INTERNAL MEDICINE 02/11/23 documented as of this encounter
--- OUTSIDE RECORDS SUMMARY | 2024-09-03 19:09 | XMS_ITS | Encounter Summary ---
Author Organization [facility] Address [facility] [place] [address] [place] [address] Care Team Providers Care Sedimentationist Name Role Phone Piyush Pandey MD Unavailable Unavailabl Megan Leos MD Primary Care Provider [phone] Sharmila Davis APRN, NP-C Unavailable [phone] Zaki Ortiz MD Unavailable [phone] Conectta Acevedo MD Unavailable [phone] Jeff Grace MD Unavailable Reason for Referral * Imaging (Emergency) - Closed Specialty Diagnoses / Procedures Referred By Yung t Referred To Contact RADIOLOGY Procedures CT ABD+PEL WO CON Ana Moran NP [address] [address] Phone: tel: fax: Referral ID Status Reason Start Date Expiration Date Visits Re quested Visits Authorized [id number] Closed 07/14/2023 07/14/2024 1 1 N RESOURCES TRAINEE * Imaging (Urgent) - Closed Specialty Diagnoses / Procedures Referred By Contac t Referred To Contact RADIOLOGY Procedures [facility] Ana Moran NP [address] [place] [address] Phone: tel: fax: Referral ID Status Reason Start Date Expiration Date Visits Re quested Visits Authorized [id number] Closed 07/14/2023 07/14/2024 1 1 N RESOURCES TRAINEE * (Routine) - Canceled Specialty Diagnoses / Procedures Referred By Contac t Referred To Contact Procedures PT eval and treat Ana Moran NP [address] [place] [address] Phone: tel: fax: Referral ID Status Reason Start Date Expiration Date V isits Requested Visits Authorized [id number] Canceled 07/13/2023 07/13/2024 1 1 N RESOURCES TRAINEE Reason for Visit * Reason Comments Chest Pain * Auth/Cert (Routine) Specialty Diagnoses / Procedures Referred By Contac t Referred To Contact Diagnoses Chest pain Anemia CHF exacerbation (CMS/HCC HHS/HCC) Cellulitis of right leg CHF exacerbation (HHS/HCC) (CMS/HCC) Procedures NONE Megan Infante MD [address] [place] [address] Phone: tel: fax: Referral ID Status Reason Start Date Expiration Date Visits Re quested Visits Authorized [id number] 1 1 Encounter Details Date Type Department Care Team (Late st Contact Info) Description 07/12/2023 3:33 PM HUMAN RESOURCES TRAINEE - 07/16/2023 10:13 AM HUMAN RESOURCES TRAINEE Hospital Encounter [facility] [address] [place] [address] Reema Green MD [address] [place] [id number] Megan Infante MD [address] [place] [address] Chest Pain Discharge Disposition: Home or Self Care (Routine Discharge) Social History Tobacco Use Types Packs/Day Years Used Date Smoking Tobacco: Former Smokeless Tobacco: Former Chew Alcohol Use Standard Drinks/Week Comments Yes 0 (1 standard drink = 0.6 oz pur e alcohol) 6 beers per week [facility] Utilities Answer Date Recorded [...] declined 02/16/2023 How often do you attend lutheran or restorationist serv ices? Patient declined 02/16/2023 Do you belong to any clubs o r organizations such as lutheran groups, unions, fraternal or athletic groups, or [...] move on to questions 3-9 0 12/01/2021 [facility] [place] [facility] Occupat ional Health - Occupational Stress [...] Sign Reading Time Taken Comments Blood Pressure 113/61 07/16/2023 8:51 AM HUMAN RESOURCES TRAINEE Pulse 90 07/16/2023 8:51 AM HUMAN RESOURCES TRAINEE Temperature 36 ??C (96.8 ??F) 07/16/2023 4:45 AM HUMAN RESOURCES TRAINEE Respiratory Rate 20 07/16/2023 4:45 AM HUMAN RESOURCES TRAINEE Oxygen Saturation 97% 07/16/2023 4:45 AM HUMAN RESOURCES TRAINEE Inhaled Oxygen Concentration - - Weight 91.9 kg (202 lb 9.6 oz) 07/16/2023 4:45 A M HUMAN RESOURCES TRAINEE Height 167.6 cm (5' 6 ) 07/12/2023 6:52 PM HUMAN RESOURCES TRAINEE Body Mass Index 32.7 07/12/2023 6:52 PM HUMAN RESOURCES TRAINEE documented in this encounter Functional Status * Question Answer Date of Assessment Author Status Do you have serious difficulty walking or climbing stairs? Yes 07/12/2023 6:58 PM Liliana Layne RN Ac tive * Question Answer Date of Assessment Author Status Do you have difficulty dressing or bathing? No 07/12/2023 6:58 PM Liliana Layne R N Active Because of a physical, mental, or emotional condition, do you have difficulty doing errands alone such as visiting a doctor's office or shopping? No 07/12/2023 6:58 PM Liliana Layne RN Act nhan * Are you deaf or do you [...] serious difficulty concentrating, remembering, or making decisions? No 07/12/2023 6:58 PM Liliana Layne R N Active * Because of a physical, mental, or emotional condition, do you have serious difficulty concentrating, remembering, or making decisions? Answer Entry Date Author Status No 07/12/2023 6:58 PM Liliana Layne RN Active documented in this encounter Discharge Summaries * Mookie Oh NP - 07/16/2023 9:39 AM CST Images from the original note were not included. Physician Discharge Summary Patient ID: Obie Lay. male. 1955. Admit date: 07/12/2023 3:33 PM Discharge date and time: 07/16/23 Admitting Physician: Megan Infante MD Primary Care Physician: MEGAN INFANTE MD Attending Provider: Megan Infante MD Discharge Physician: Gloria Navarro MD/MOOKIE OH NP Primary Diagnoses: Acute on chronic CHF exacerbation COPD exacerbation Chest pain Anemia Cellulitis of the right leg Secondary Diagnosis: A-fib Hypertension Hyperlipidemia Diabetes mellitus type 2 Admission Condition: fair Discharged Condition: Good Code Status: Full Code Indication for Admission: Chief Complaint Patient presents with Chest Pain Reason for hospitalization: Congestive heart failure, anemia, cellulitis Hospital Course: Obie Lay was admitted on 07/12/2023 3:33 PM for congestive heart failure, anemia and cellulitis. Obie Lay is a 67-year-old male with a history of CHF, COPD, HTN, AFIB, CAD, DM2, CVA who presented to the ER from PCP with complaints of leg wounds fluid leakage and chest pain. He states has been having chest discomfort last 24 hours mild dyspnea and believes he is fluid overloaded. He has been leaking from both of his legs and has a wound in the right lower extremity above the ankle as well as in the left calf. ED work-up includes EKG showing left bundle branch block with no obvious acute ischemic changes. Portable chest showing cardiomegaly with pulmonary vascular congestion with perivascular haziness and interstitial prominence compatible with interstitial edema. CBC shows WBC of 13.9 hemoglobin of 7.3 and hematocrit of 26.5. CMP shows natremia and chronic kidney dysfunction sodium of 132 creatinine of 1.43. BMP chronically elevated at 3565, troponin 45, lactic acid 1.9 patient is anticoagulated. Patient received gentle hydration and started on Rocephin in the emergency department. Stool occult has not been obtained. Patient assessed today sitting upright in bed in no acute distress and alert and oriented x3. Patient denies any abdominal pain, shortness of breath, chest pain or any other concerns at this time. Dressing in place to right lower extremity with drainage noted on gauze. Patient has Aquacel dressing to right lower extremity with no appreciable drainage noted. Wound management has consulted patient recommends Unna boot if ABIs remain unchanged. The Unna boot is applied today on Wednesday it will come off Wednesday for neurocheck. 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 Repeat STELLA If STELLA not significantly worsened, recommend application of UNNA dressing bilaterally. UNNA removalfor Skin/ neurovascular check 48 hours after application. Then reapply and may stay on for 3-7 daysdepending on amount of drainage. Elevate bilateral legs PT for calf pump exercises and ROM Follow up with outpatient wound care after discharge. Call to schedule appointment prior to discharge Patient seen bedside today, states he feels better and would like to go home. Patient denies any shortness of breath, chest pain, nausea or vomiting. Patient does complain of mild right leg discomfort. Discussed p.o. medications for pain on discharge. Patient without hematochezia or melena. Discussed continuing antibiotics orally for 10 days, follow-up with wound clinic, repeat PT/INR on 07/19/2023 for Coumadin adjustment. Will hold Coumadin tonight. If patient experiences further hematochezia or melena, patient to report to the ER. Patient's hemoglobin/hematocrit stable today. Adjustments made on patient's diuretics. Patient scheduled on 07/20/2023 at 10:00 for Unna boot application. Consults: Wound clinic Physical Exam Vitals and nursing note reviewed. Constitutional: General: He is not in acute distress. Appearance: Normal appearance. He is not ill-appearing. HENT: Head: Normocephalic. Nose: Nose normal. Mouth/Throat: Mouth: Mucous membranes are moist. Eyes: Pupils: Pupils are equal, round, and reactive to light. Cardiovascular: Rate and Rhythm: Normal rate and regular rhythm. Pulses: Normal pulses. Heart sounds: Normal heart sounds. Pulmonary: Effort: Pulmonary effort is normal. Breath sounds: Normal breath sounds. Abdominal: General: Abdomen is protuberant. Bowel sounds are normal. Palpations: Abdomen is soft. Musculoskeletal: General: Normal range of motion. Cervical back: Normal range of motion and neck supple. No rigidity or tenderness. Right lower leg: Edema present, dressings in place, no drainage Left lower leg: Edema present. Skin: General: Skin is warm and dry. Capillary Refill: Capillary refill takes less than 2 seconds. Findings: Erythema present. Neurological: General: No focal deficit present. Mental Status: He is alert and oriented to person, place, and time. Psychiatric: Mood and Affect: Mood normal. Behavior: Behavior normal. Significant Diagnostic Studies: Radiology Results (Last 30 days) 07/14/[address] ABD+PEL WO CON Final result Impression: IMPRESSION: 1. No evidence of GI bleed on single phase noncontrast CT. 2. Fecalization of small bowel contents, suggestive of decreased transit time with areas of mild to moderate dilatation of the bowel. No discrete transition point. 3. Sub-6 mm pulmonary nodule in the right lung base, new from the prior examination. Current Fran Society guidelines recommend no routine follow-up for patient's at low risk of lung cancer. Optional CT at 12 months for patient's at high risk. Dictated By: Elida Maher on 07/14/2023 5:34 PM The attending radiologist has reviewed the image(s) and agrees with the content of this report. The attending radiologist has reviewed the image(s) and agrees with the content of this report. Referred By: ANA MORAN Interpreted By: Elida Maher MD, 07/14/2023 5:34 PM 07/14/23 1427 [facility] Final result Impression: IMPRESSION: UNOBTAINABLE BILATERAL ANKLE BRACHIAL INDICES ON ACCOUNT OF SEVERE VESSEL STIFFNESS AND HARDENING. DIGITAL BRACHIAL INDICES ARE NORMAL. THE DOPPLER WAVEFORMS ARE ALSO NORMAL AND TRIPHASIC. Referred By: Interpreted By: Piyush Zhang MD, 07/15/2023 2:49 AM 07/12/23 1606 XR CHEST PORTABLE Final result Impression: IMPRESSION: Cardiomegaly with congestive changes as described. No focal infiltrates. Ordered By: REEMA GREEN Interpreted By: Nicko Portillo MD, 07/12/2023 4:13 PM Vital Signs at Discharge: Filed Vitals: 07/15/23 1144 07/15/23 1946 07/16/23 0445 07/16/23 0851 BP: 127/66 119/63 (!) 153/88 113/61 Pulse: 93 92 95 90 Resp: Temp: 97.3 ??F (36.3 ??C) 96.8 ??F (36 ??C) 96.8 ??F (36 ??C) TempSrc: Tympanic Tympanic Temporal SpO2: 99% 100% 97% Weight: 91.9 kg (202 lb 9.6 oz) Height: Last labs past 24 hours: Recent Results (from the past 24 hour(s)) POCT glucose Collection Time: 07/15/23 11:09 AM Result Value Ref Range GLUCOSE POC 257 (H) 70 - 99 MG/DL POCT glucose Collection Time: 07/15/23 5:06 PM Result Value Ref Range GLUCOSE POC 267 (H) 70 - 99 MG/DL POCT glucose Collection Time: 07/15/23 8:26 PM Result Value Ref Range GLUCOSE POC 195 (H) 70 - 99 MG/DL CBC W/DIFF AUTOMATED Collection Time: 07/16/23 5:24 AM Result Value Ref Range WBC 11.60 (H) 4.00 - 10.80 x10'3/uL RBC 3.75 (L) 4.50 - 6.10 x10'6/uL HGB 8.2 (L) 13.0 - 18.0 G/DL HCT 29.9 (L) 37.0 - 52.0 % MCV 79.7 78.0 - 100.0 FL MCH 21.9 (L) 27.0 - 31.0 PG MCHC 27.4 (L) 33.0 - 36.0 G/DL RDW 22.5 (H) 11.5 - 14.5 % PLT 289 150 - 350 x10'3/uL MPV 9.3 7.4 - 10.4 FL CBC COMMENT NORMAL REFERENCE RANGE NOT ESTABLISHED FOR THE PROPORTIONAL LEUKOCYTE DIFFERENTIAL. NEUTROPHILS 68.6 % LYMPHOCYTES 14.2 % MONOCYTES 12.6 % EOSINOPHILS 3.5 % BASOPHILS 0.6 % IMMATURE GRANS 0.5 % NRBC 0.0 % ABS. NEUTROPHILS 7.96 1.60 - 8.30 x10'3/uL ABS. LYMPHOCYTES 1.65 0.80 - 4.70 x10'3/uL ABS. MONOCYTES 1.46 0.00 - 1.50 x10'3/uL ABS. EOSINOPHILS 0.41 (H) 0.00 - 0.40 x10'3/uL ABS. BASOPHILS 0.07 0.00 - 0.20 x10'3/uL ABS. IMMATURE GRANULOCYTES 0.06 (H) 0.00 - 0.03 x10'3/uL ABS. NUCLEATED RBC'S 0.00 0.00 x10'3/uL PLT MORPH. NORMAL RBC MORPHOLOGY 3+ COMPREHENSIVE METABOLIC PANEL Collection Time: 07/16/23 5:24 AM Result Value Ref Range SODIUM S/P/B 136 136 - 145 MMOL/L POTASSIUM S/P/B 4.4 3.5 - 5.1 MMOL/L CHLORIDE S/P/B 100 98 - 107 MMOL/L CO2 29.1 21.0 - 32.0 MMOL/L GLUCOSE 174 (H) 70 - 99 MG/DL BUN 28 (H) 6 - 24 MG/DL CREATININE S/P/B 1.68 (H) 0.70 - 1.30 MG/DL CALCIUM S/P/B 9.0 8.4 - 10.5 MG/DL BILIRUBIN TOTAL S/P/B 0.5 0.2 - 1.0 MG/DL ALKALINE PHOSPHATASE S/P/B 145 (H) 45 - 115 U/L AST 19 15 - 37 U/L ALT 14 (L) 16 - 63 U/L TOTAL PROTEIN S/P/B 7.7 6.4 - 8.2 G/DL ALBUMIN S/P/B 2.8 (L) 3.4 - 5.0 G/DL ANION GAP 6.9 5.0 - 15.0 MMOL/L OSMOLALITY (CALC) 292 MOSM/KG GFR ESTIMATE 44 (L) >89 ML/MIN/1.73 M2 GFR NOTES GFR REFERENCES: PROTIME/INR, VENOUS Collection Time: 07/16/23 5:24 AM Result Value Ref Range PROTIME 18.7 (H) 9.4 - 12.5 SEC INR 1.6 (H) 0.8 - 1.0 POCT glucose Collection Time: 07/16/23 6:01 AM Result Value Ref Range GLUCOSE POC 165 (H) 70 - 99 MG/DL Discharge Medications: Medication List START taking these medications Morning Afternoon Evening Bedtime As Needed clindamycin 300 MG capsule Commonly known as: CLEOCIN Take 1 capsule (300 mg total) by mouth 3 (three) times daily for 10 days. Signed by: Mookie Oh NP HYDROcodone-acetaminophen 10-325 MG tablet Commonly known as: NORCO Take 1 tablet by mouth every 6 (six) hours as needed. Indications: Acute Pain < 7 Day Supply Last time this was given: 1 tablet on July 16, 2023 1:13 AM Signed by: Mookie Oh NP Replaces: HYDROcodone-acetaminophen 7.5-325 MG tablet CHANGE how you take these medications Morning Afternoon Evening Bedtime As Needed furosemide 80 MG tablet Commonly known as: LASIX Start taking on: July 17, 2023 Take 1 tablet (80 mg total) by mouth daily. Last time this was given: 80 mg on July 16, 2023 8:49 AM Signed by: Mookie Oh NP What changed: medication strength how much to take gabapentin 400 MG capsule Commonly known as: NEURONTIN Take 1 capsule (400 mg total) by mouth 2 (two) times daily. Last time this was given: 400 mg on July 16, 2023 8:49 AM Signed by: Mookie Oh NP What changed: medication strength how much to take when to take this glipiZIDE XL 5 MG 24 hr tablet Commonly known as: GLUCOTROL XL Take 1 tablet (5 mg total) by mouth daily with breakfast. Last time this was given: 5 mg on July 16, 2023 8:49 AM You were taking this medication differently than prescribed. Signed by: Dr. Jamie Hilliard MD Levemir FlexPen 100 UNIT/ML PEN Inject 15 Units into the skin nightly at bedtime. You were taking this medication differently than prescribed. Signed by: Dr. Jamie Hilliard MD Generic drug: insulin detemir triamcinolone 0.1 % cream Commonly known as: KENALOG Apply topically 2 (two) times daily. Last time this was given: July 16, 2023 8:50 AM Signed by: Mookie Oh NP What changed: how to take this when to take this CONTINUE taking these medications Morning Afternoon Evening Bedtime As Needed albuterol sulfate HFA 108 (90 Base) MCG/ACT inhaler Inhale 2 puffs into the lungs every 4 (four) hours as needed. allopurinol 300 MG tablet Commonly known as: ZYLOPRIM Take 1 tablet (300 mg total) by mouth daily. Last time this was given: 300 mg on July 16, 2023 8:49 AM aspirin 81 MG chewable tablet Chew 1 tablet (81 mg total) by mouth daily. Last time this was given: 81 mg on July 16, 2023 8:49 AM atorvastatin 80 MG tablet Commonly known as: LIPITOR Take 1 tablet (80 mg total) by mouth nightly at bedtime. Last time this was given: 80 mg on July 15, 2023 8:21 PM carvedilol 3.125 MG tablet Commonly known as: COREG Take 1 tablet (3.125 mg total) by mouth 2 (two) times daily. Last time this was given: 3.125 mg on July 16, 2023 8:50 AM cyclobenzaprine 10 MG tablet Commonly known as: FLEXERIL Take 1 tablet (10 mg total) by mouth 3 (three) times daily as needed for Muscle Spasms. Last time this was given: 10 mg on July 15, 2023 10:30 AM docusate sodium 100 MG capsule Commonly known as: COLACE Take 1 capsule (100 mg total) by mouth as needed for Constipation. ferrous sulfate (65 mg elemental) 325 (65 FE) MG tablet Take 1 tablet (325 mg total) by mouth daily with breakfast. Last time this was given: 325 mg on July 16, 2023 8:49 AM folic acid 1 MG tablet Commonly known as: FOLVITE Take 1 tablet (1 mg total) by mouth daily. Last time this was given: 1 mg on July 16, 2023 8:49 AM hydrOXYzine 50 MG tablet Commonly known as: ATARAX Take 2 tablets (100 mg total) by mouth 3 (three) times daily. As needed Last time this was given: 50 mg on July 16, 2023 8:49 AM Jardiance 25 MG tablet Take 1 tablet (25 mg total) by mouth daily. Last time this was given: 25 mg on July 16, 2023 8:49 AM Generic drug: empagliflozin losartan 50 MG tablet Commonly known as: COZAAR Take 1 tablet (50 mg total) by mouth daily. Last time this was given: 25 mg on July 16, 2023 8:49 AM metFORMIN 500 MG tablet Commonly known as: GLUCOPHAGE Take 1 tablet (500 mg total) by mouth 2 (two) times daily with meals. pantoprazole EC 40 MG tablet Commonly known as: PROTONIX Take 1 tablet (40 mg total) by mouth daily. Last time this was given: 40 mg on July 16, 2023 8:49 AM potassium chloride CR 20 MEQ tablet Commonly known as: KLOR-CON M Take 1 tablet (20 mEq total) by mouth 2 (two) times daily. Last time this was given: 20 mEq on July 16, 2023 8:49 AM rOPINIRole 4 MG tablet Commonly known as: REQUIP Take 1 tablet (4 mg total) by mouth nightly at bedtime. Last time this was given: 4 mg on July 15, 2023 8:21 PM sertraline 50 MG tablet Commonly known as: ZOLOFT Take 1 tablet (50 mg total) by mouth daily. Last time this was given: 50 mg on July 16, 2023 8:49 AM spironolactone 25 MG tablet Commonly known as: ALDACTONE Take 1 tablet (25 mg total) by mouth daily. Last time this was given: 25 mg on July 16, 2023 8:50 AM Signed by: Mookie Oh NP tiZANidine 4 MG tablet Commonly known as: ZANAFLEX Take 1 tablet (4 mg total) by mouth 3 (three) times daily as needed. traZODone 150 MG tablet Commonly known as: DESYREL Take 2 tablets (300 mg total) by mouth nightly at bedtime. Last time this was given: 300 mg on July 15, 2023 8:21 PM Trelegy Ellipta 100-62.5-25 MCG/ACT Aepb Inhale 1 puff into the lungs daily. Generic drug: Hxgkvohskub-Dleokyboy-Jzuezi * warfarin 1 MG tablet Commonly known as: COUMADIN Take 1 tablet (1 mg total) by mouth daily. Take with 5mg tab to make it 6 mg daily. Repeat INR in 3-4 days to adjust the dose of warfarin as per PCP Last time this was given: Ask your nurse or doctor Signed by: Dr. Daniel Dupree MD * warfarin 5 MG tablet Commonly known as: COUMADIN Take 1 tablet (5 mg total) by mouth daily. Take with 1 mg tab to make it 6 mg daily. Repeat INR in 3-4 days to adjust the dose of warfarin as per PCP Last time this was given: Ask your nurse or doctor Signed by: Dr. Daniel Dupree MD * This list has 2 medication(s) that are the same as other medications prescribed for you. Read thedirections carefully, and ask your doctor or other care provider to review them with you. STOP taking these medications amoxicillin-clavulanate 875-125 MG tablet Commonly known as: AUGMENTIN HYDROcodone-acetaminophen 7.5-325 MG tablet Commonly known as: NORCO Replaced by: HYDROcodone-acetaminophen 10-325 MG tablet Disposition: discharged to home Patient Instructions: Activity: activity as tolerated Diet: diabetic diet Wound Care: as directed Follow-up appointments: Wednesday, 07/19, PT/INR. Wound clinic appointment on 07/20 at 10:00. Findings that require further workup: PT/INR and CMP, wound clinic appointment Lab Frequency Next Occurrence PROTIME/INR, VENOUS Once 07/19/2023 COMPREHENSIVE METABOLIC PANEL Once 07/19/2023 Up With Assistance As needed RT Eval and Treat Once CBC W/DIFF AUTOMATED Daily (early AM pickups) COMPREHENSIVE METABOLIC PANEL Daily (early AM pickups) Time Spent on Discharge Less than 30 minutes Signed: MOOKIE OH NP Cosigned by Gloria Navarro MD at 07/20/2023 10:13 AM HUMAN RESOURCES TRAINEE N RESOURCES TRAINEE N RESOURCES TRAINEE Associated attestation - Gloria Navarro MD - 07/20/2023 10:13 AM HUMAN RESOURCES TRAINEE I, GLORIA NAVARRO MD, participated in the care of this patient today and discussed the plan of care with , CAREY, who shared in this visit. I have reviewed the CAREY's documentation and agree with the findings except as I have documented. I personally spent 15 minutes, caring for this patient. GLORIA NAVARRO MD documented in this encounter Discharge Instructions * Attachments The following attachments cannot be sent through Care Everywhere. * Cellulitis (Skin Infection) Discharge Instructions, Adult (B[place]) documented in this encounter Medications at Time [...] as of this encounter Progress Notes * Zayra Chávez RN - 07/16/2023 10:53 AM CST Problem: Discharge Planning Goal: Knowledge of discharge instructions Outcome: Adequate for Discharge Problem: Pain control/comfort Goal: Promote pain control/comfort Outcome: Adequate for Discharge Problem: Skin integrity, Impaired-wound Goal: Absence of new skin breakdown Outcome: Adequate for Discharge Goal: Evidence of wound healing Outcome: Adequate for Discharge Problem: Infection Goal: Absence of infection signs and symptoms Infection/Isolation Outcome: Adequate for Discharge Problem: Reduced risk [...] of Polypharmacy Outcome: Adequate for Discharge Problem: Balance Goal: STG - Pt to demonstrate dynamic standing balance Description: Of good, able to take a step in all directions with AD without LOB. Outcome: Adequate for Discharge Problem: Mobility Goal: STG - Pt will ambulate Description: 75'x1 mod ind with SPC. Outcome: Adequate for Discharge Goal: STG - Pt will ascend/descend stairs Description: 3 steps with B handrail and/or SPC mod ind Outcome: Adequate for Discharge Problem: Transfers Goal: STG - Pt will perform sit to stand Description: Mod ind with UE assist as needed. Outcome: Adequate for Discharge Goal: STG - Pt will perform stand pivot transfer Description: Mod ind with appropriate AD. Outcome: Adequate for Discharge N RESOURCES TRAINEE * Opal Caro PTA - 07/16/2023 9:42 AM CST Pt progressing towards his therapeutic goals. N RESOURCES TRAINEE * Opal Caro PTA - 07/16/2023 9:41 AM CST 07/16/23 0915 Therapy Visit Ordering Provider Dr. Infante Subjective Pt sitting in chair this morning and agrees to therapy. Pt states that his legs are hurting and rates his pain an 8 pre treatment. Reason for admission CHF exacerbation Verified Two Patient Identifiers Yes Patient consents to therapy Yes Acute Inpatient PT Time Calculation PT Start Time 0915 PT Stop Time 0930 PT Time Calculation (min) 15 min Pain Pain Yes Pain Score 8 Location B Legs Activity Tolerance Endurance Tolerates 10 - 20 min activity with rests Endurance Quality Fair Limiting Factors to Endurance Acute deconditioning;Pain;Weakness TRANSFERS Sit to Stand Modified independence Bed to Chair Modified independence Gait Gait Assistance SBA/supervision Assistive Device 2 Wheeled walker Distance Ambulated (ft) 102 ft Balance Sitting - Static Independent Sitting - Dynamic Independent Standing - Static Modified independence;Support of one upper extremity Standing - Dynamic SBA;Support of both upper extremities Exercises Sitting LE Exercise B LAQ x15; B marching x15; B hip abd x15; B ankle PF/DF x15 PT Assessment PT Assessment Pt able to increase ambulation distance this morning with FWW and SBA without LOB or safety concerns. Pt advised to use walker for now instead of cane for increased stability. Pt then perform seated B LE to facilitate independence with mobility tasks and overall endurance strengthening. Pt is hoping to go home today and is up to patient if he wants to continue strengthening at outpatient therapy. Pt is probably close to baseline and would be adequate for discharge. Pt positioned in chair with call light within reach. Discharge Recommendation PT Recommendation Home with assistance;Outpatient PT PT Equipment Recommended 2 Wheeled walker Plan PT Treatments/Interventions Gait Training;Therapeutic Exercises;Therapeutic Activities Progress Improving as expected PT Frequency Daily;BID End of Session End of Session Safety Call light within reach N RESOURCES TRAINEE * Meredith Munguia RN - 07/15/2023 9:31 PM CST Problem: Pain control/comfort Goal: Promote pain control/comfort Outcome: Progressing Note: Pt denies pain at this time. Problem: Skin integrity, Impaired-wound Goal: Absence of new skin breakdown Outcome: Progressing Note: NO new skin breakdown noted. Prior breakdown healing. Problem: Reduced risk for falls/injury Goal: Reduced Risk for Falls/Injury Outcome: Progressing Note: Fall precautions in place. Goal: Reduced Risk of Dizziness/Vertigo/Balance Outcome: Progressing Note: Rise slowly from sitting, call for assistance. N RESOURCES TRAINEE * Risa Padilla RN - 07/15/2023 4:20 PM CST Problem: Discharge Planning Goal: Knowledge of discharge instructions Outcome: Progressing Note: Working towards discharge. Problem: Pain control/comfort Goal: Promote pain control/comfort Outcome: Progressing Note: Working on pain control. Pain in bilat legs continues. Medications available upon request. Problem: Skin integrity, Impaired-wound Goal: Absence of new skin breakdown Outcome: Progressing Note: No new skin breakdown. Skin checks per shift. Goal: Evidence of wound healing Outcome: Progressing Note: Wounds slowly improving. Treatment continues. Problem: Infection Goal: Absence of infection signs and symptoms Infection/Isolation Outcome: Progressing Note: Continues with IV antibiotics for BLE cellulitis. Bilat lower legs remain red with swelling. Problem: Reduced risk for falls/injury Goal: Reduced Risk for Falls/Injury Outcome: Progressing Note: Fall precautions maintained. Assist with ADL's. Bed/chair alarms. Non skid footwear. Call light in reach. Goal: Reduced Risk of Confusion (Acute vs Chronic) Outcome: Progressing Note: No confusion noted. Alert and oriented x4. Goal: Reduced Risk of Symptomatic Depression Outcome: Progressing Note: No s/sx of depression. Goal: Reduced Risk of Altered Elimination Outcome: Progressing Note: Occasional incontinence. Pericare provided as needed. Goal: Reduced Risk of Dizziness/Vertigo/Balance Outcome: Progressing Note: Denies vertigo. Goal: Reduced Risk of Polypharmacy Outcome: Progressing Note: MD/SUPERVISOR BURLING AND JOINING reviewed. N RESOURCES TRAINEE * Shayy Duke, ANP- - 07/15/2023 8:10 AM CST Daily Progress Note Obie Lay is a 67-year-old male patient. Primary Care Provider: MEGAN INFANTE MD Attending Provider: Megan Infante MD LOS: 3 Days Reason for admission: 07/12/2023 3:33 PM Subjective: Sitting up in chair this AM. Has some pain to the back on his leg. He would like to go home today. Assessment/Plan: #Acute on Chronic CHF exacerbation #COPD #chest pain - resolved BNP 3565 on admission Troponin 45 Daily weights - wt down 8 lbs since admission Lasix 80 mg oral daily RT to eval and treat #anemia Hemoglobin 7.3-> 6.8-> 8.0->8.0->8.5 1 unit P RBC 07/14/23 Follow, stable #cellulitis R leg Open draining area to proximal left tibia, dressing in place; see media Oxacillin 1 g every 4 hours Wound consult -plan for Unna boots tomorrow? ABIs show calcified vessels but normal and triphasic waveforms. Similar when compared to study in 11/2021 WBC 12, #afib #CVA Coumadin 5 mg on hold with positive fecal occult Telemetry #HTN #HLD Cozaar 25 mg oral daily Aldactone 25 mg oral daily Coreg 3.125 mg oral 2 times daily Lasix 80 mg oral daily #DM2 Carb controlled diet Glipizide 5 mg orally daily Jardiance 25 mg oral daily Lantus 15 units at bedtime Bedside glucose #CKD Appears better than baseline Plan: Wound consult - to place Unna boots Antibiotics Monitor labs Patient Active Problem List Diagnosis S/P ablation of atrial fibrillation LV dysfunction Essential hypertension Mixed hyperlipidemia Diabetes mellitus, type II (HHS/HCC) ([facility]) Coronary artery disease involving [place] coronary artery of pe[place] heart without angina pectoris COPD (chronic obstructive pulmonary disease) ([facility]/HCC) ([facility]/HCC) Carotid disease, bilateral (CMS/HCC) Arthritis Aortic stenosis Chronic anticoagulation Chronic atrial fibrillation ([facility]/HCC) ([facility]) S/P aortic valve replacement with bioprosthetic valve Varicose veins of bilateral lower extremities with other complications Abnormal ankle brachial index (STELLA) Claudication ([facility]/HCC) Pain in both lower extremities Abnormal finding on lung imaging Abnormal finding on pulmonary function testing Shortness of breath TIA (transient ischemic attack) Obstructive sleep apnea (adult) (pediatric) Pulmonary hypertension ([facility]/HCC) ([facility]) Asymptomatic carotid artery stenosis, bilateral Mild persistent asthma without complication ([facility]) Leg edema Other closed fracture of distal end of right fibula with routine healing, subsequent encounter NSTEMI (non-ST elevated myocardial infarction) ([facility]) ([facility] Elevated troponin Elevated brain natriuretic peptide (BNP) level Fall CHF (congestive heart failure) ([facility]) ([facility]) Rib fractures CHF exacerbation ([facility]) ([facility]) allopurinol 300 mg Oral Daily aspirin 81 mg Oral Daily atorvastatin 80 mg Oral Nightly at bedtime carvedilol 3.125 mg Oral BID empagliflozin 25 mg Oral Daily ferrous sulfate (65 mg elemental) 325 mg Oral Daily with breakfast folic acid 1 mg Oral Daily furosemide 80 mg Oral Daily gabapentin 400 mg Oral BID glipiZIDE XL 5 mg Oral Daily with breakfast hydrOXYzine 50 mg Oral TID insulin glargine 15 Units Subcutaneous Nightly at bedtime losartan 25 mg Oral Daily oxacillin 1 g Intravenous Q4H pantoprazole EC 40 mg Oral Daily potassium chloride CR 20 mEq Oral BID rOPINIRole 4 mg Oral Nightly at bedtime sertraline 50 mg Oral Daily spironolactone 25 mg Oral Daily traZODone 300 mg Oral Nightly at bedtime triamcinolone Topical BID albuterol sulfate HFA, cyclobenzaprine, docusate sodium, HYDROcodone- acetaminophen, morphine, tiZANidine No Known Allergies Review of Systems: No shortness of breath No chest pain Objective: Blood pressure 130/74, pulse 92, temperature 96.4 ??F (35.8 ??C), temperature source Tympanic, resp. rate 20, height 1.676 m (5' 6 ), weight 94.6 kg (208 lb 9.6 oz), SpO2 100 %. Last 5 Recorded Weights 07/12/23 1544 07/12/23 1852 07/14/23 0423 07/15/23 0638 Weight: 99.8 kg (220 lb) 98.2 kg (216 lb 6.4 oz) 98.2 kg (216 lb 9.6 oz) 94.6 kg (208 lb 9.6 oz) Telemetry: Recent Labs Lab 07/15/23 045 WBC 12.57* HGB 8.5* PLT 318 Recent Labs Lab 07/15/23456 NA 134* K 4.7 CL 98 CO2 27.2 AGAP 8.8 BUN 23 CR 1.53* GLU 191* CA 8.8 ALB 2.9* TBIL 0.6 ALKP 154* AST 20 ALT 20 Recent Labs Lab 07/15/23456 INR 1.8* Results for orders placed or performed during the hospital encounter of 07/12/23 (from the past 8736 hour(s)) CULTURE, BACTERIA, BLOOD Collection Time: 07/12/23 4:22 PM Specimen: BLOOD Result Value Ref Range SPEC DESCRIPTION BLOOD SPECIAL REQUESTS STERIPATH CULTURE RESULT NO GROWTH 3 DAYS CULTURE, BACTERIA, BLOOD Collection Time: 07/12/23 4:13 PM Specimen: BLOOD Result Value Ref Range SPEC DESCRIPTION BLOOD SPECIAL REQUESTS NO SPECIAL REQUEST CULTURE RESULT NO GROWTH 3 DAYS No results found for this visit on 07/12/23 (from the past 8736 hour(s)). TROPONIN I Date Value Ref Range Status 03/24/2016 0.036 (H) 0.000 - 0.028 ng/mL. Final 03/23/2016 0.037 (H) 0.000 - 0.028 ng/mL. Final 03/23/2016 0.034 (H) 0.000 - 0.028 ng/mL. Final TROPONIN I HIGH SENSITIVITY Date Value Ref Range Status 07/12/2023 45 0 - 76 ng/L Final 02/16/2023 87 (H) 0 - 78 ng/L Final 02/16/2023 97 (H) 0 - 78 ng/L Final estimated creatinine clearance is 49.7 mL/min (A) (based on SCr of 1.53 mg/dL (H)). Intake/Output Summary (Last 24 hours) at 07/15/2023 0810 Last data filed at 07/15/2023 0655 Gross per 24 hour Intake 1360 ml Output 6250 ml Net -4890 ml Physical Exam Vitals and nursing note reviewed. Constitutional: General: He is not in acute distress. Appearance: Normal appearance. He is not ill-appearing. HENT: Head: Normocephalic. Nose: Nose normal. Mouth/Throat: Mouth: Mucous membranes are moist. Eyes: Pupils: Pupils are equal, round, and reactive to light. Cardiovascular: Rate and Rhythm: Normal rate and regular rhythm. Pulses: Normal pulses. Heart sounds: Normal heart sounds. Pulmonary: Effort: Pulmonary effort is normal. Breath sounds: Normal breath sounds. Abdominal: General: Abdomen is protuberant. Bowel sounds are normal. Palpations: Abdomen is soft. Musculoskeletal: General: Normal range of motion. Cervical back: Normal range of motion and neck supple. No rigidity or tenderness. Right lower leg: Edema present. Left lower leg: Edema present. Skin: General: Skin is warm and dry. Capillary Refill: Capillary refill takes less than 2 seconds. Findings: Erythema present. Neurological: General: No focal deficit present. Mental Status: He is alert and oriented to person, place, and time. Psychiatric: Mood and Affect: Mood normal. Behavior: Behavior normal. SANDI JULIAN 07/15/2023 Cosigned by Gloria Navarro MD at 07/20/2023 10:12 AM HUMAN RESOURCES TRAINEE N RESOURCES TRAINEE N RESOURCES TRAINEE N RESOURCES TRAINEE Associated attestation - Gloria Navarro MD - 07/20/2023 10:12 AM HUMAN RESOURCES TRAINEE I, GLORIA NAVARRO MD, participated in the care of this patient today and discussed the plan of care with , CAREY, who shared in this visit. I have reviewed the CAREY's documentation and agree with the findings except as I have documented. I personally spent 15 minutes, caring for this patient. GLORIA NAVARRO MD * Eleni Mckeon RN - 07/15/2023 12:14 AM CST Problem: Infection Goal: Absence of infection signs and symptoms Infection/Isolation Outcome: Progressing Note: Afebrile, monitor VS Problem: Reduced risk for falls/injury Goal: Reduced Risk for Falls/Injury Outcome: Progressing Note: Call light at pt's reach, bed alarm on Goal: Reduced Risk of Symptomatic Depression Outcome: Progressing Note: Communicative Goal: Reduced Risk of Dizziness/Vertigo/Balance Outcome: Progressing Note: No dizziness Goal: Reduced Risk of Polypharmacy Outcome: Progressing Note: Scheduled medication given N RESOURCES TRAINEE * Teresa Colon RD - 07/14/2023 3:59 PM CST CLINICAL DIETITIAN ASSESSMENT NUTRITION ASSESSMENT Past Medical History: Diagnosis Date ??? Abnormal ankle brachial index (STELLA) ??? Acute on chronic heart failure, unspecified heart failure type (HHS/HCC) (CMS/HCC) ??? Anxiety ??? Aortic valve stenosis ??? Arthritis ??? Asthma, mild persistent (HHS/HCC) 04/06/2021 ??? Atrial fibrillation (HHS/HCC) (CMS/HCC) s/p PVI/[facility] 10/2015 ??? Bilateral leg pain ??? Carotid disease, bilateral (CMS/HCC) ??? CHF (congestive heart failure) (HHS/HCC) (CMS/HCC) ??? Claudication (CMS/HCC) ??? COPD (chronic obstructive pulmonary disease) (HHS/HCC) (CMS/HCC) ??? Coronary artery disease ??? Diabetes mellitus, type II (HHS/HCC) (CMS/HCC) ??? Edema 04/19/2018 2+ pitting ??? History of blood transfusion ??? Hyperlipidemia ??? Hypertension ??? LV dysfunction ??? Osteoarthritis ??? PAD (peripheral artery disease) (CMS/HCC) ??? Pneumonia ??? Restless leg syndrome ??? S/P aortic valve replacement with bioprosthetic valve 2013 1999, 2013 ??? SOB (shortness of breath) ??? Stroke (HHS/HCC) (CMS/HCC) ??? Varicose veins of bilateral lower extremities with other complications ??? Weight gain with edema Initial History (07/14/2023): Registered Dietitian (JANE) completing an initial assessment secondary to wound. Patient is a 67-year-old male admitted secondary to Chest pain [R07.9] Anemia [D64.9] CHF exacerbation (HHS/HCC) (CMS/HCC) [I50.9] Cellulitis of right leg [L03.115]. Weight history (07/14/2023): No weight loss per MST. Diet history (07/14/2023): No appetite issues per MST. No nausea, vomiting, diarrhea, constipation. Food allergies/intolerances: NKFA per EHR Cultural/Lutheran food preferences: None reported in EHR Cardiorespiratory: in room air Neuro: Alert/oriented per EHR Edema: +1 (RLE/LLE) edema noted per EHR GI: abdomen WDL with positive bowel sounds per evaluation analyst; last BM documented on 07/12/23 Chewing/swallowing problems: None reported Skin: bilateral leg wounds- partial thickness Nutrition-focused physical findings: not assessed Labs: Reviewed with the following abnormalities identified: Na 135, Cr 1.33, glucose 164, ProBNP 3565 Recent Labs Lab 07/13/23 0549 07/13/23 1139 07/13/23 1555 07/13/23 2134 07/14/23 0604 07/14/23 1105 GLUCOSEPOC 173* 273* 258* 182* 154* 171* SODIUM S/P/B Date Value Ref Range Status 07/14/2023 135 (L) 136 - 145 MMOL/L Final 07/13/2023 133 (L) 136 - 145 MMOL/L Final POTASSIUM S/P/B Date Value Ref Range Status 07/14/2023 4.8 3.5 - 5.1 MMOL/L Final CHLORIDE S/P/B Date Value Ref Range Status 07/14/2023 102 98 - 107 MMOL/L Final CO2 Date Value Ref Range Status 07/14/2023 26.4 21.0 - 32.0 MMOL/L Final BUN Date Value Ref Range Status 07/14/2023 18 6 - 24 MG/DL Final CREATININE S/P/B Date Value Ref Range Status 07/14/2023 1.33 (H) 0.70 - 1.30 MG/DL Final GLUCOSE Date Value Ref Range Status 07/14/2023 164 (H) 70 - 99 MG/DL Final Comment: FASTING GLUCOSE 100 TO 125 MG/DL IS CONSISTENT WITH IMPAIRED FASTING GLUCOSE. FASTING GLUCOSE >125 MG/DL IS CONSISTENT WITH DIABETES. RANDOM GLUCOSE >200 MG/DL WITH HYPERGLYCEMIC SYMPTOMS IS CONSISTENT WITH DIABETES. PER ADA GUIDELINES CALCIUM S/P/B Date Value Ref Range Status 07/14/2023 9.0 8.4 - 10.5 MG/DL Final Meds: Reviewed. No nutrition-related concerns noted at this time. ??? allopurinol 300 mg Oral Daily ??? aspirin 81 mg Oral Daily ??? atorvastatin 80 mg Oral Nightly at bedtime ??? carvedilol 3.125 mg Oral BID ??? empagliflozin 25 mg Oral Daily ??? ferrous sulfate (65 mg elemental) 325 mg Oral Daily with breakfast ??? folic acid 1 mg Oral Daily ??? furosemide 80 mg Oral Daily ??? gabapentin 400 mg Oral BID ??? glipiZIDE XL 5 mg Oral Daily with breakfast ??? hydrOXYzine 50 mg Oral TID ??? insulin glargine 15 Units Subcutaneous Nightly at bedtime ??? losartan 25 mg Oral Daily ??? oxacillin 1 g Intravenous Q4H ??? pantoprazole EC 40 mg Oral Daily ??? potassium chloride CR 20 mEq Oral BID ??? rOPINIRole 4 mg Oral Nightly at bedtime ??? sertraline 50 mg Oral Daily ??? spironolactone 25 mg Oral Daily ??? traZODone 300 mg Oral Nightly at bedtime ??? triamcinolone Topical BID ??? warfarin (COUMADIN) pharmacy to dose Oral See Admin Instructions ??? warfarin 2 mg Oral Once PRN: Colace, morphine, [place] Anthropometrics: Admission weight: 98.2 kg (Date: 07/12/23; Method: Standing) Last 5 Recorded Weights 07/12/23 1544 07/12/23 1852 07/14/23 0423 Weight: 99.8 kg (220 lb) 98.2 kg (216 lb 6.4 oz) 98.2 kg (216 lb 9.6 oz) Weight status: Weight stable x 2 days. Height: 167.6 cm ABW: 98.2 kg IBW: 63.8 kg (ABW is 154% of IBW) UBW: -- kg (ABW is --% of UBW) DW: 98.2 kg BMI: 34.96 kg/m?? (Obesity Class I) Estimated Nutrient Needs: Calories: 1869 kcal/day based on [place]-St Jeor x 1.1 Protein: 98 gm/day based on 1 g/kg (21%) Carbohydrate: 210 gm/day based on 45% of total kcal from carbohydrate Fluid: 1500 mL/day based on minimum of 1.5L/day Current diet order: Carb Controlled-60g/meal Current diet appropriate? Yes, monitor for low sodium Current intake sufficient to meet nutritional needs? Yes; Based on review of PO intake per EHR and MyDining, patient consumed 1612 kcal/day (86% of estimated needs) and 81 gm/day protein (83% of estimated needs) x 3 meals yesterday. Fluid intake appears inadequate to meet estimated fluid intake requirement. Pain affecting PO intake? No Nutrition Education: unable to assess education needs at this time NUTRITION DIAGNOSIS Increased needs (kcal/protein) related to wound healing as evidenced by bilateral leg partial thickness wounds. Nutrition risk: Moderate NUTRITION INTERVENTION Nutrition prescription: Carbohydrate controlled diet (60g) Plan: 1. Continue with 60g CHO controlled diet. Monitor for no added salt/low sodium. 2. Daily weights. 3.Celio BID for wound healing. 4. Daily MVI for wound healing. Discharge nutrition plan: Discharge needs assessed. Will provide/update discharge instructions as needed. MONITORING/EVALUATION 07/14/2023 Goals: 1. PO intake will meet at least 75% of estimated kcal/protein needs based on 3- day average intake per review of EHR and MyDining at follow up. 2. Weight stable within 2% of admission weight (98.2 kg) at follow up. TERESA COLON RD, LDN N RESOURCES TRAINEE * Wei Frazier, PT - 07/14/2023 2:33 PM CST Instructions for Nursing: Pt up in room with SPC and CGAx1 for room mobility and bathroom. Physical Therapy Inpatient Evaluation Time In: 1055 Time Out: 1103 Obie Lay 328/01 Chest pain [R07.9] Anemia [D64.9] CHF exacerbation (HHS/HCC) (CMS/HCC) [I50.9] Cellulitis of right leg [L03.115] Past Medical History: Diagnosis Date Abnormal ankle brachial index (STELLA) Acute on chronic heart failure, unspecified heart failure type (HHS/HCC) (CMS/HCC) Anxiety Aortic valve stenosis Arthritis Asthma, mild persistent (HHS/HCC) 04/06/2021 Atrial fibrillation ([facility]/HCC) ([facility]) s/p PVI/[facility] 10/2015 Bilateral leg pain Carotid disease, bilateral ([facility]/HCC) CHF (congestive heart failure) ([facility]/HCC) ([facility]) Claudication ([facility]/HCC) COPD (chronic obstructive pulmonary disease) ([facility]/HCC) ([facility]) Coronary artery disease Diabetes mellitus, type II ([facility]/HCC) ([facility]) Edema 04/19/2018 2+ pitting History of blood transfusion Hyperlipidemia Hypertension LV dysfunction Osteoarthritis PAD (peripheral artery disease) ([facility]) Pneumonia Restless leg syndrome S/P aortic valve replacement with bioprosthetic valve 2013 1999, 2013 SOB (shortness of breath) Stroke ([facility]) ([facility]) Varicose veins of bilateral lower extremities with other complications Weight gain with edema Past Surgical History: Procedure Laterality Date APPENDECTOMY CARDIAC VALVE REPLACEMENT 1999 CARDIAC VALVE REPLACEMENT 2013 CARDIOVERSION EXTERNAL 10/01/2015 CARDIOVERSION EXTERNAL 04/14/2012 COLONOSCOPY N/A 03/18/2021 COLONOSCOPY (Incomplete) performed by Gloria Navarro MD at [facility] OR COLONOSCOPY N/A 01/27/2022 COLONOSCOPY WITH COLD SNARE POLYPECTOMY performed by Gloria Navarro MD at [facility] OR HIP ARTHROPLASTY Left KNEE ARTHROPLASTY Bilateral REPAIR ROTATOR CUFF W/ OR W/O ACROMIOPLASTY Left USE NEMO+CARDIOVERSION 03/24/2016 XA A-FIB ABLATION 10/23/2015 PVI/[facility] Subjective: Orientation: x 4 Pain: 9/10 Pain Location: BLE Patient reports he feels his legs are still a little weak and leaking. They are giving him a lot ofpain overall compared to normal, ut he does not feel unsteady. He is not worried about going home as he has adequate equipment. Home Environment: House Entrance: 3 steps with Bilateral handrail. Living arrangements - The patient lives with their family, daughter and son-in-law. Patient has been ambulatory with single point cane in his R hand. Objective: Patient was in chair upon pt arrival. Observation: Pt in mild distress but able to speak and converse with PT appropriately and adequately, per PT observation of facial expression and body language. He is well aware of his deficits and has no obvious safety deficits that he does not know. Several bandages present with slight leaking onBLE, but seemingly under control. He is mildly unsteady but able to control himself and catch himself without PT assistance. Precautions/Restrictions: Fall Risk LE STRENGTH Left Right Hip flexion 3+/5 4-/5 Knee extension 4/5 4/5 Knee flexion 4/5 4/5 Dorsiflexion 4+/5 4/5 Transfers: Bed mobility/rolling: Not Performed this Date Supine to sit: Not Performed this Date Sit to stand: Supervision, pt did take 2-3 attempts due to configuration of the chair. Pivot: Supervision Ambulation: Pt ambulates approximately 25'x1 SBA/CGAx1 with SPC in R-hand. He has a few moments of stumbling, but is able to catch himself without PT assistance. Adequate B foot clearance but lack ofB DF causes lack of solid heel strike. Activity performed this session: Evaluation only this date. Assessment: Obie Lay is a 67-year-old male who presents with a primary complaint of Chest pain [R07.9] Anemia [D64.9] CHF exacerbation (HHS/HCC) (CMS/HCC) [I50.9] Cellulitis of right leg [L03.115]. Patient is demonstrating deficits in Strength, Posture, Balance,Endurance, and Mobility leading to decreased safety, increased fall risk, and decreased independence. Skilled therapy is appropriate at this time to address these impairments and to move the patient towards their goal of safe return to home environment at discharge. Recommended Interventions: Therapeutic Activity, Therapeutic Exercise, and Gait Training Rehab Potential: Good Personal Factors/Co-Morbidities Affecting Care: 3-4+ Examination of Body Systems: Low (1-2) Clinical Presentation of Patient: Stable Uncomplicated Eval Complexity: Low PT Plan: Frequency: Daily/BID as Tolerated Duration: 1 week Anticipated Discharge at this time: Home, Home with Assist, or Home with Home Health Plan for next session: Gait training for endurance; transfer training for safety Safety at conclusion of Treatment: Patient in Chair, Call Light in Reach, and all needs met per pt report. N RESOURCES TRAINEE * Opal Caro, GASOLINE ATTENDANT - 07/14/2023 2:17 PM CST 07/14/23 1340 Therapy Visit Ordering Provider Dr. Infante Subjective Attempted to see patient this afternoon, but patient had just been taken down for testing. Pt will not be seen tomorrow as it is Thanksgiving. Will check on patient Wednesday for one treatment. Overall patient did well with initial evaluation, just limited in ambulation due to pain in bilateral LE. Reason for admission CHF exacerbation N RESOURCES TRAINEE * Maria M Genao, PharmD, [facility] - 07/14/2023 12:24 PM CSTSummary: Warfarin Warfarin - Pharmacy Dosing Service Note Obie Lay is a 67-year-old male for which pharmacy has been consulted to dose warfarin for A.fib, aortic valve bioprosthetic. Goal INR is 2-3. Warfarin Order Set Activated: Yes Warfarin Start Date: continuation from home Past Medical History: Diagnosis Date Abnormal ankle brachial index (STELLA) Acute on chronic heart failure, unspecified heart failure type ([facility]HCC) [facility] [facility]) Anxiety Aortic valve stenosis Arthritis Asthma, mild persistent ([facility]/HCC) 04/06/2021 Atrial fibrillation (HHS/HCC) ([facility]) s/p PVI/[facility] 10/2015 Bilateral leg pain Carotid disease, bilateral ([facility]/HCC) CHF (congestive heart failure) (HHS/HCC) ([facility]/HCC) Claudication ([facility]/HCC) COPD (chronic obstructive pulmonary disease) ([facility]/HCC) ([facility]) Coronary artery disease Diabetes mellitus, type II ([facility]/HCC) ([facility]/HCC) Edema 04/19/2018 2+ pitting History of blood transfusion Hyperlipidemia Hypertension LV dysfunction Osteoarthritis PAD (peripheral artery disease) ([facility]) Pneumonia Restless leg syndrome S/P aortic valve replacement with bioprosthetic valve 2013 SOB (shortness of breath) Stroke (HHS/HCC) ([facility]) Varicose veins of bilateral lower extremities with other complications Weight gain with edema Home warfarin dose: 5mg or 6mg daily Bridging agent: none Vitamin K use: No; (if yes, indicate date, dose, and route) Diet: PO Recent Labs Lab 07/12/23 1613 07/13/23 0508 07/13/23 1510 07/14/23 0508 HGB 7.3* 6.8* 8.0* 8.0* HCT 26.5* 25.1* 28.9* 29.4* PLT 325 338 -- 311 AST 19 -- -- 21 ALT 22 -- -- 22 ALKP 182* -- -- 155* ALB 3.0* -- -- 2.8* Date INR Dose Received 07/12 3.3 home 07/13 2.4 5mg at 0800 07/14 1.7 5mg at 0800 Drug interactions: Potential to increase INR: Oxacillin Potential to decrease INR: None Potential to increase the risk of bleeding: Aspirin Warfarin Sensitivity: moderate, based on the following risk factors: concomitant antiplatelet therapy, age 66-79, 1 moderate drug interaction, diagnosis of heart failure, and albumin 2.6-3. Hgb/Hct today are fluctuating INR today is Subtherapeutic The plan is to give a 2 mg dose once tonight (already received 5mg today) and recheck an INR in themorning to assist with subsequent dosing. Plan to adjust administration time to PM instead of AM aswell. Pharmacy will continue to monitor labs and notes daily, adjusting the dose as clinically appropriate. Thank you for the consult. Pharmacy to dose per Dr. Naresh GENAO, PharmD, [facility] Phone number: [phone] 07/14/2023 12:24 PM N RESOURCES TRAINEE * Zayra Powell, REHABILITATION MANAGER - 07/14/2023 7:40 AM CSTSummary: Inpatient wound care consult Wound Care Obie Lay is an 1955 male. Chief Complaint: Chest pain HPI: 67 year old male with hx of PAD, aortic valve stenosis, asthma, atrial fibrillation, CHF, claudication, COPD, CAD, T2DM, HTN, CVA and LV dysfunction admitted to [place] after presenting to the ERfor chest pain and bilateral lower leg drainage from wounds to lower legs. ED work-up includes EKG showing left bundle branch block with no obvious acute ischemic changes. Portable chest showing cardiomegaly with pulmonary vascular congestion with perivascular haziness and interstitial prominence compatible with interstitial edema. CBC shows WBC of 13.9 hemoglobin of 7.3 and hematocrit of 26.5. CMP shows natremia and chronic kidney dysfunction sodium of 132 creatinine of 1.43. BMP chronically elevated at 3565, troponin 45, lactic acid 1.9 patient is anticoagulated. Patient received gentle hydration and started on Rocephin in the emergency department. Stool occult has not been obtained. Patient is being diuresed with PO lasix. He has received 1 unit of PRBC. He is anticoagulated with coumadin. Patient states that he has had right lower leg wound for approximately 2-3 weeks. States that he thinks the wound started from cellulitis. States that he has had wounds to right lower leg in the pastwhich usually clears up quickly with antibiotics. States concerns that present wound is taking longer to heal. He states his left leg started as a cyst that opens and drains intermittently over the years. States that he has had the cyst removed before and it returned. Patient has been evaluated by Dr. Grace in the past. Most recent office evaluation 04/13/2023. noted STELLA 2021 noncompressible with toe pressure more than 100 mm hg bilaterally. Recommended multilayer compression, leg elevation and calf pump exercises. Past Medical History: Diagnosis Date Abnormal ankle brachial index (STELLA) Acute on chronic heart failure, unspecified heart failure type (HHS/HCC) ([facility]) Anxiety Aortic valve stenosis Arthritis Asthma, mild persistent ([facility]/HCC) 04/06/2021 Atrial fibrillation ([facility]/HCC) ([facility]/HCC) s/p PVI/[facility] 10/2015 Bilateral leg pain Carotid disease, bilateral ([facility]/HCC) CHF (congestive heart failure) (HHS/HCC) (CMS/HCC) Claudication ([facility]/HCC) COPD (chronic obstructive pulmonary disease) (HHS/HCC) ([facility]/HCC) Coronary artery disease Diabetes mellitus, type II (HHS/HCC) (CMS/HCC) Edema 04/19/2018 2+ pitting History of blood transfusion Hyperlipidemia Hypertension LV dysfunction Osteoarthritis PAD (peripheral artery disease) (CMS/HCC) Pneumonia Restless leg syndrome S/P aortic valve replacement with bioprosthetic valve 2013 1999, 2013 SOB (shortness of breath) Stroke (HHS/HCC) (CMS/HCC) Varicose veins of bilateral lower extremities with other complications Weight gain with edema Past Surgical History: Procedure Laterality Date APPENDECTOMY CARDIAC VALVE REPLACEMENT 1999 CARDIAC VALVE REPLACEMENT 2013 CARDIOVERSION EXTERNAL 10/01/2015 CARDIOVERSION EXTERNAL 04/14/2012 COLONOSCOPY N/A 03/18/2021 COLONOSCOPY (Incomplete) performed by Gloria Navarro MD at [facility] OR COLONOSCOPY N/A 01/27/2022 COLONOSCOPY WITH COLD SNARE POLYPECTOMY performed by Gloria Navarro MD at [facility] OR HIP ARTHROPLASTY Left KNEE ARTHROPLASTY Bilateral REPAIR ROTATOR CUFF W/ OR W/O ACROMIOPLASTY Left USE NEMO+CARDIOVERSION 03/24/2016 XA A-FIB ABLATION 10/23/2015 PVI/[facility] Social History Tobacco Use Smoking status: Former Smokeless tobacco: Former Types: Chew Substance Use Topics Alcohol use: Yes Comment: 6 beers per week Family History Problem Relation Name Age of Onset TB Mother No Known Allergies Current Facility-Administered Medications Medication Dose Route Frequency Provider Last Rate Last Admin albuterol sulfate HFA 108 (90 Base) MCG/ACT inhaler 2 puff 2 puff Inhalation Q4H PRN Reema Green MD allopurinol (ZYLOPRIM) tablet 300 mg 300 mg Oral Daily Reema Green MD 300 mg at 07/13/23811 aspirin chewable tablet 81 mg 81 mg Oral Daily Reema Green MD 81 mg at 07/13/23812 atorvastatin (LIPITOR) tablet 80 mg 80 mg Oral Nightly at bedtime Reema Green MD 80 mg at 07/13/232133 carvedilol (COREG) tablet 3.125 mg 3.125 mg Oral BID Reema Green MD 3.125 mg at 07/13/232135 cyclobenzaprine (FLEXERIL) tablet 10 mg 10 mg Oral TID PRN Reema Green MD 10 mg at 07/12/232127 docusate sodium (COLACE) capsule 100 mg 100 mg Oral PRN Reema Green MD empagliflozin (JARDIANCE) tablet 25 mg 25 mg Oral Daily Reema Green MD 25 mg at 07/13/23812 ferrous sulfate (65 mg elemental) tablet 325 mg 325 mg Oral Daily with breakfast Reema Green MD 325 mg at 07/13/23811 folic acid (FOLVITE) tablet 1 mg 1 mg Oral Daily Reema Green MD 1 mg at 07/13/23812 furosemide (LASIX) tablet 80 mg 80 mg Oral Daily Reema Green MD gabapentin (NEURONTIN) capsule 400 mg 400 mg Oral BID Reema Green MD 400 mg at 07/13/232135 glipiZIDE XL (GLUCOTROL XL) 24 hr tablet 5 mg 5 mg Oral Daily with breakfast Reema Green MD 5 mg at 07/13/23812 HYDROcodone-acetaminophen (NORCO) 7.5-325 MG tablet 1 tablet 1 tablet Oral TID PRN Reema Green MD 1 tablet at 07/14/23 0559 hydrOXYzine (ATARAX) tablet 50 mg 50 mg Oral TID Reema Green MD 50 mg at 07/13/232133 insulin glargine (LANTUS) injection 15 Units 15 Units Subcutaneous Nightly at bedtime Megan Infante MD 15 Units at 07/13/232138 losartan (COZAAR) tablet 25 mg 25 mg Oral Daily Reema Green MD 25 mg at 07/13/23811 morphine injection 1 mg 1 mg Intravenous Q2H PRN Megan Infante MD 1 mg at 07/14/233 oxacillin 1 g in sodium chloride 0.9 % 50 mL IVPB 1 g Intravenous Q4H Ana Moran NP Stopped at 07/14/23 0645 pantoprazole EC (PROTONIX) tablet 40 mg 40 mg Oral Daily Reema Green MD 40 mg at 07/13/23812 potassium chloride CR (KLOR-CON M) tablet 20 mEq 20 mEq Oral BID Reema Green MD 20 mEq at 07/13/232135 rOPINIRole (REQUIP) tablet 4 mg 4 mg Oral Nightly at bedtime Reema Green MD 4 mg at 07/13/232133 sertraline (ZOLOFT) tablet 50 mg 50 mg Oral Daily Reema Green MD 50 mg at 07/13/23812 spironolactone (ALDACTONE) tablet 25 mg 25 mg Oral Daily Reema Green MD tiZANidine (ZANAFLEX) tablet 4 mg 4 mg Oral TID PRN Reema Green MD traZODone (DESYREL) tablet 300 mg 300 mg Oral Nightly at bedtime Reema Green MD 300 mg at 07/13/232133 triamcinolone (KENALOG) 0.1 % cream Topical BID Reema Green MD Given at 07/13/232140 warfarin (COUMADIN) tablet 5 mg 5 mg Oral Daily Reema Green MD 5 mg at 11/21/23 0813 ROS Blood pressure (!) 150/89, pulse (!) 101, temperature 95.9 ??F (35.5 ??C), temperature source Oral,resp. rate 19, height 1.676 m (5' 6 ), weight 98.2 kg (216 lb 9.6 oz), SpO2 97 %. Physical Exam Imaging: Results for orders placed or performed during the hospital encounter of 07/12/23 XR CHEST PORTABLE Narrative Examination: Portable chest. Exam time: 1542 hours. Clinical history: Chest pain. Comparison: 02/16/2023. Technique: AP upright view. Findings: Allowing for differences in projection and rotation, the cardiomediastinal silhouette is stable. The heart remains enlarged. Changes from median sternotomy again evident. There is pulmonaryvascular congestion with perivascular haziness and interstitial prominence compatible with interstitial edema. No confluent infiltrates or effusions are identified. The visualized bony thorax is stable. Impression IMPRESSION: Cardiomegaly with congestive changes as described. No focal infiltrates. Ordered By: REEMA GREEN Interpreted By: Nicko Portillo MD, 07/12/2023 4:13 PM Labs: Recent Results (from the past 24 hour(s)) POCT glucose Collection Time: 07/13/23 11:39 AM Result Value Ref Range GLUCOSE POC 273 (H) 70 - 99 MG/DL HEMOGLOBIN AND HEMATOCRIT Collection Time: 07/13/23 3:10 PM Result Value Ref Range HGB 8.0 (L) 13.0 - 18.0 G/DL HCT 28.9 (L) 37.0 - 52.0 % POCT glucose Collection Time: 07/13/23 3:55 PM Result Value Ref Range GLUCOSE POC 258 (H) 70 - 99 MG/DL POCT glucose Collection Time: 07/13/23 9:34 PM Result Value Ref Range GLUCOSE POC 182 (H) 70 - 99 MG/DL CBC W/DIFF AUTOMATED Collection Time: 07/14/23 5:08 AM Result Value Ref Range WBC 12.66 (H) 4.00 - 10.80 x10'3/uL RBC 3.68 (L) 4.50 - 6.10 x10'6/uL HGB 8.0 (L) 13.0 - 18.0 G/DL HCT 29.4 (L) 37.0 - 52.0 % MCV 79.9 78.0 - 100.0 FL MCH 21.7 (L) 27.0 - 31.0 PG MCHC 27.2 (L) 33.0 - 36.0 G/DL RDW 21.7 (H) 11.5 - 14.5 % PLT 311 150 - 350 x10'3/uL MPV 9.9 7.4 - 10.4 FL CBC COMMENT NORMAL REFERENCE RANGE NOT ESTABLISHED FOR THE PROPORTIONAL LEUKOCYTE DIFFERENTIAL. COMPREHENSIVE METABOLIC PANEL Collection Time: 07/14/23 5:08 AM Result Value Ref Range SODIUM S/P/B 135 (L) 136 - 145 MMOL/L POTASSIUM S/P/B 4.8 3.5 - 5.1 MMOL/L CHLORIDE S/P/B 102 98 - 107 MMOL/L CO2 26.4 21.0 - 32.0 MMOL/L GLUCOSE 164 (H) 70 - 99 MG/DL BUN 18 6 - 24 MG/DL CREATININE S/P/B 1.33 (H) 0.70 - 1.30 MG/DL CALCIUM S/P/B 9.0 8.4 - 10.5 MG/DL BILIRUBIN TOTAL S/P/B 0.8 0.2 - 1.0 MG/DL ALKALINE PHOSPHATASE S/P/B 155 (H) 45 - 115 U/L AST 21 15 - 37 U/L ALT 22 16 - 63 U/L TOTAL PROTEIN S/P/B 7.6 6.4 - 8.2 G/DL ALBUMIN S/P/B 2.8 (L) 3.4 - 5.0 G/DL ANION GAP 6.6 5.0 - 15.0 MMOL/L OSMOLALITY (CALC) 286 MOSM/KG GFR ESTIMATE 58 (L) >89 ML/MIN/1.73 M2 GFR NOTES GFR REFERENCES: PROTIME/INR, VENOUS Collection Time: 07/14/23 5:08 AM Result Value Ref Range PROTIME 19.8 (H) 9.4 - 12.5 SEC INR 1.7 (H) 0.8 - 1.0 POCT glucose Collection Time: 07/14/23 6:04 AM Result Value Ref Range GLUCOSE POC 154 (H) 70 - 99 MG/DL Assessment/ recommendations: #Nonpressure chronic ulcer to right calf 2/2 chronic venous insufficiency with CEAP disease. Repeat STELLA If STELLA not significantly worsened, recommend application of UNNA dressing bilaterally. UNNA removalfor Skin/ neurovascular check 48 hours after application. Then reapply and may stay on for 3-7 daysdepending on amount of drainage. Elevate bilateral legs PT for calf pump exercises and ROM Follow up with outpatient wound care after discharge. Call to schedule appointment prior to discharge. LALIT CHENEY Cosigned by Jeff Grace MD at 07/14/2023 4:06 PM HUMAN RESOURCES TRAINEE N RESOURCES TRAINEE N RESOURCES TRAINEE * Ana Moran NP - 07/14/2023 7:36 AM CST Daily Progress Note Obie Lay is a 67-year-old male patient. Primary Care Provider: MEGAN INFANTE MD Attending Provider: Megan Infante MD LOS: 2 Days Reason for admission: 07/12/2023 3:33 PM Subjective: Patient assessed sitting upright in chair in no acute distress and alert and oriented x 4. Patient has Aquacel dressing to right lower extremity with no appreciable drainage noted. Wound management has consulted patient recommends Unna boot if ABIs remain unchanged. The Unna boot is applied today on Wednesday it will come off Wednesday for neurocheck. We will continue antibiotics and monitor hemoglobin. Assessment/Plan: #Acute on Chronic CHF exacerbation #COPD #chest pain BNP 3565 Troponin 45 Daily weights Lasix 80 mg oral daily RT to eval and treat #anemia Hemoglobin 7.3-> 6.8-> 8.0->8.0 1 unit P RBC today Follow #cellulitis R leg Open draining area to proximal left tibia, dressing in place; see media Oxacillin 1 g every 4 hours Wound consult ABIs pending WBC improving #afib #CVA Coumadin 5 mg daily Telemetry #HTN #HLD Cozaar 25 mg oral daily Aldactone 25 mg oral daily Coreg 3.125 mg oral 2 times daily Lasix 80 mg oral daily #DM2 Carb controlled diet Glipizide 5 mg orally daily Jardiance 25 mg oral daily Lantus 15 units at bedtime Bedside glucose Plan: Wound consult Blood products Antibiotics Monitor labs Due to severity of illness, expect patient to be here > 2 midnights stay. Patient Active Problem List Diagnosis S/P ablation of atrial fibrillation LV dysfunction Essential hypertension Mixed hyperlipidemia Diabetes mellitus, type II ([facility]) [facility] Coronary artery disease involving peoria coronary artery of peoria heart without angina pectoris COPD (chronic obstructive pulmonary disease) ([facility]) ([facility] Carotid disease, bilateral ([facility] Arthritis Aortic stenosis Chronic anticoagulation Chronic atrial fibrillation ([facility]) ([facility] S/P aortic valve replacement with bioprosthetic valve Varicose veins of bilateral lower extremities with other complications Abnormal ankle brachial index (STELLA) Claudication ([facility]) Pain in both lower extremities Abnormal finding on lung imaging Abnormal finding on pulmonary function testing Shortness of breath TIA (transient ischemic attack) Obstructive sleep apnea (adult) (pediatric) Pulmonary hypertension ([facility]) ([facility] Asymptomatic carotid artery stenosis, bilateral Mild persistent asthma without complication ([facility]) Leg edema Other closed fracture of distal end of right fibula with routine healing, subsequent encounter NSTEMI (non-ST elevated myocardial infarction) ([facility]) ([facility] Elevated troponin Elevated brain natriuretic peptide (BNP) level Fall CHF (congestive heart failure) ([facility]) ([facility]) Rib fractures CHF exacerbation ([facility]) ([facility] allopurinol 300 mg Oral Daily aspirin 81 mg Oral Daily atorvastatin 80 mg Oral Nightly at bedtime carvedilol 3.125 mg Oral BID empagliflozin 25 mg Oral Daily ferrous sulfate (65 mg elemental) 325 mg Oral Daily with breakfast folic acid 1 mg Oral Daily furosemide 80 mg Oral Daily gabapentin 400 mg Oral BID glipiZIDE XL 5 mg Oral Daily with breakfast hydrOXYzine 50 mg Oral TID insulin glargine 15 Units Subcutaneous Nightly at bedtime losartan 25 mg Oral Daily oxacillin 1 g Intravenous Q4H pantoprazole EC 40 mg Oral Daily potassium chloride CR 20 mEq Oral BID rOPINIRole 4 mg Oral Nightly at bedtime sertraline 50 mg Oral Daily spironolactone 25 mg Oral Daily traZODone 300 mg Oral Nightly at bedtime triamcinolone Topical BID warfarin 5 mg Oral Daily albuterol sulfate HFA, cyclobenzaprine, docusate sodium, HYDROcodone- acetaminophen, morphine, tiZANidine No Known Allergies Review of Systems: No shortness of breath No chest pain Objective: Blood pressure (!) 150/89, pulse (!) 101, temperature 95.9 ??F (35.5 ??C), temperature source Oral,resp. rate 19, height 1.676 m (5' 6 ), weight 98.2 kg (216 lb 9.6 oz), SpO2 97 %. Last 5 Recorded Weights 07/12/23 1544 07/12/23 1852 07/14/23 0423 Weight: 99.8 kg (220 lb) 98.2 kg (216 lb 6.4 oz) 98.2 kg (216 lb 9.6 oz) Telemetry: Recent Labs Lab 07/14/23 0508 WBC 12.66* HGB 8.0* PLT 311 Recent Labs Lab 07/14/23 0508 NA 135* K 4.8 CL 102 CO2 26.4 AGAP 6.6 BUN 18 CR 1.33* GLU 164* CA 9.0 ALB 2.8* TBIL 0.8 ALKP 155* AST 21 ALT 22 Recent Labs Lab 07/14/23 0508 INR 1.7* Results for orders placed or performed during the hospital encounter of 07/12/23 (from the past 8736 hour(s)) CULTURE, BACTERIA, BLOOD Collection Time: 07/12/23 4:22 PM Specimen: BLOOD Result Value Ref Range SPEC DESCRIPTION BLOOD SPECIAL REQUESTS STERIPATH CULTURE RESULT NO GROWTH 1 DAY CULTURE, BACTERIA, BLOOD Collection Time: 07/12/23 4:13 PM Specimen: BLOOD Result Value Ref Range SPEC DESCRIPTION BLOOD SPECIAL REQUESTS NO SPECIAL REQUEST CULTURE RESULT NO GROWTH 1 DAY No results found for this visit on 07/12/23 (from the past 8736 hour(s)). TROPONIN I Date Value Ref Range Status 03/24/2016 0.036 (H) 0.000 - 0.028 ng/mL. Final 03/23/2016 0.037 (H) 0.000 - 0.028 ng/mL. Final 03/23/2016 0.034 (H) 0.000 - 0.028 ng/mL. Final TROPONIN I HIGH SENSITIVITY Date Value Ref Range Status 07/12/2023 45 0 - 76 ng/L Final 02/16/2023 87 (H) 0 - 78 ng/L Final 02/16/2023 97 (H) 0 - 78 ng/L Final estimated creatinine clearance is 58.3 mL/min (A) (based on SCr of 1.33 mg/dL (H)). Intake/Output Summary (Last 24 hours) at 07/14/2023 0738 Last data filed at 07/14/2023 0645 Gross per 24 hour Intake 1750 ml Output 2350 ml Net -600 ml Physical Exam Vitals and nursing note reviewed. Constitutional: General: He is not in acute distress. Appearance: Normal appearance. He is not ill-appearing. HENT: Head: Normocephalic. Nose: Nose normal. Mouth/Throat: Mouth: Mucous membranes are moist. Eyes: Pupils: Pupils are equal, round, and reactive to light. Cardiovascular: Rate and Rhythm: Normal rate and regular rhythm. Pulses: Normal pulses. Heart sounds: Normal heart sounds. Pulmonary: Effort: Pulmonary effort is normal. Breath sounds: Normal breath sounds. Abdominal: General: Abdomen is protuberant. Bowel sounds are normal. Palpations: Abdomen is soft. Musculoskeletal: General: Normal range of motion. Cervical back: Normal range of motion and neck supple. No rigidity or tenderness. Right lower leg: Edema present. Left lower leg: Edema present. Skin: General: Skin is warm and dry. Capillary Refill: Capillary refill takes less than 2 seconds. Findings: Erythema present. Neurological: General: No focal deficit present. Mental Status: He is alert and oriented to person, place, and time. Psychiatric: Mood and Affect: Mood normal. Behavior: Behavior normal. ANA MORAN NP 07/14/2023 Cosigned by Megan Infante MD at 07/30/2023 2:23 PM HUMAN RESOURCES TRAINEE N RESOURCES TRAINEE N RESOURCES TRAINEE Associated attestation - Megan Infante MD - 07/30/2023 2:23 PM HUMAN RESOURCES TRAINEE I, MEGAN INFANTE MD, participated in the care of this patient today and discussed the plan of care with CAREY Rodriguez, who shared in this visit. I have reviewed the CAREY's documentation and agree with the findings except as I have documented. I personally spent 30 minutes, caring for this patient. MEGAN INFANTE MD * Lulu Adhikari RN - 07/14/2023 1:22 AM CST Problem: Discharge Planning Goal: Knowledge of discharge instructions Outcome: Progressing Note: Discussed that pain medication can be given on discharge, but not IV pain medication. Problem: Pain control/comfort Goal: Promote pain control/comfort Outcome: Progressing Note: Discussed that IV pain medication cannot be given at home, that pain control needs to be attained in order for patient to be ready for discharge. N RESOURCES TRAINEE * Elena Richardson RN - 07/13/2023 12:56 PM CST Problem: Discharge Planning Goal: Knowledge of discharge instructions 07/13/2023 1254 by Elena Richardson RN Outcome: Progressing Note: No discharge orders at this time. 07/13/2023 1253 by Elena Richardson RN Outcome: Progressing Note: No discharge Problem: Pain control/comfort Goal: Promote pain control/comfort 07/13/2023 1254 by Elena Richardson RN Outcome: Progressing Note: Patient has PRN pain medications ordered. 07/13/2023 1253 by Elena Richardson RN Outcome: Progressing Problem: Skin integrity, Impaired-wound Goal: Absence of new skin breakdown 07/13/2023 1254 by Elena Richardson RN Outcome: Progressing Note: No new noted 07/13/2023 1253 by Elena Richardson RN Outcome: Progressing Goal: Evidence of wound healing 07/13/2023 1254 by Elena Richardson RN Outcome: Progressing Note: Healing with frequent assessment. Wound consult in place. 07/13/2023 1253 by Elena Richardson RN Outcome: Progressing Problem: Moisture associated skin impairment Goal: Reduce moisture exposure 07/13/2023 1254 by Elena Richardson RN Outcome: Progressing Note: Patient is continent. 07/13/2023 1253 by Elena Richardson RN Outcome: Progressing Problem: Infection Goal: Absence of infection signs and symptoms Infection/Isolation 07/13/2023 1254 by Elena Richardson RN Outcome: Progressing Note: Patient has antibiotics ordered. 07/13/2023 1253 by Elena Richardson RN Outcome: Progressing Goal: Knowledge of infection control procedures Infection 07/13/2023 1254 by Elena Richardson RN Outcome: Progressing Note: Patient educated on infection prevention. 07/13/2023 1253 by Elena Richardson RN Outcome: Progressing N RESOURCES TRAINEE * Radha Baker RN - 07/13/2023 9:19 AM CST NCM performed bedside interview. Pt name and verified. Support: daughter, son-in-law Home: Pt lives in basement of daughter's home with a chair lift for stairs DME: chair lift, cane, walker, home oxygen through [employer] but pt states he doesn't use often. Transport Home: daughter Home Health: [facility] just finished last week Address: Verified as accurate per chart. [facility]acy: [facility] PCP: Dr. Megan De La Rosa Medications: Pt denies concerns Insurance Plan: [facility]/ [id number] life insurance Financial: Pt denies concerns. Discharge Needs: No needs identified at this time. Care Coordination Team will provide discharge planning as needed, and will re-evaluate based on recommendations and treatment course. 07/13/23 0918 Referral Data Source of Information Patient Patient Information Primary Caregiver Self Current living Situation Children;Family members Type of Residence Private residence Support System Immediate family Are you employed? 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 No N RESOURCES TRAINEE N RESOURCES TRAINEE * Meredith Munguia RN - 07/12/2023 10:31 PM CST Problem: Pain control/comfort Goal: Promote pain control/comfort Outcome: Progressing Note: Pain management with current medications. Pt educated on elevating lower extremities to relieve pain. Problem: Skin integrity, Impaired-wound Goal: Absence of new skin breakdown Outcome: Progressing Note: Dressings placed on BLE wounds to promote healing and comfort. Problem: Skin integrity, Impaired-pressure injury/ulcer Goal: Absence of new skin breakdown Outcome: Progressing Note: No new skin breakdown at this time. Skin precautions in placce. N RESOURCES TRAINEE documented in this encounter H&P Notes * Ana Moran NP - 07/13/2023 11:06 AM CST Admission History and Physical History Primary Care Provider: MEGAN INFANTE MD Admitting Provider: Megan Infante MD Attending Provider: Megan Infante MD Admission date: 07/12/2023 3:33 PM Obie Lay is a 67-year-old male with a history of CHF, COPD, HTN, AFIB, CAD, DM2, CVA who presented to the ER from PCP with complaints of leg wounds fluid leakage and chest pain. He states has been having chest discomfort last 24 hours mild dyspnea and believes he is fluid overloaded. He has been leaking from both of his legs and has a wound in the right lower extremity above the ankle as well as in the left calf. ED work-up includes EKG showing left bundle branch block with no obvious acute ischemic changes. Portable chest showing cardiomegaly with pulmonary vascular congestion with perivascular haziness and interstitial prominence compatible with interstitial edema. CBC shows WBC of 13.9 hemoglobin of 7.3 and hematocrit of 26.5. CMP shows natremia and chronic kidney dysfunction sodium of 132 creatinine of 1.43. BMP chronically elevated at 3565, troponin 45, lactic acid 1.9 patient is anticoagulated. Patient received gentle hydration and started on Rocephin in the emergency department. Stool occult has not been obtained. Patient assessed today sitting upright in bed in no acute distress and alert and oriented x3. Patient denies any abdominal pain, shortness of breath, chest pain or any other concerns at this time. Dressing in place to right lower extremity with drainage noted on gauze. Past Medical History: Diagnosis Date Abnormal ankle brachial index (STELLA) Acute on chronic heart failure, unspecified heart failure type ([facility]/HCC) ([facility]) Anxiety Aortic valve stenosis Arthritis Asthma, mild persistent ([facility]/HCC) 04/06/2021 Atrial fibrillation ([facility]/HCC) ([facility]) s/p PVI/[facility] 10/2015 Bilateral leg pain Carotid disease, bilateral ([facility]/HCC) CHF (congestive heart failure) ([facility]/HCC) ([facility]/HCC) Claudication ([facility]/HCC) COPD (chronic obstructive pulmonary disease) ([facility]/HCC) ([facility]/HCC) Coronary artery disease Diabetes mellitus, type II ([facility]/HCC) ([facility]/HCC) Edema 04/19/2018 2+ pitting History of blood transfusion Hyperlipidemia Hypertension LV dysfunction Osteoarthritis PAD (peripheral artery disease) ([facility]/HCC) Pneumonia Restless leg syndrome S/P aortic valve replacement with bioprosthetic valve 2013 1999, 2013 SOB (shortness of breath) Stroke ([facility]/HCC) ([facility]) Varicose veins of bilateral lower extremities with other complications Weight gain with edema Past Surgical History: Procedure Laterality Date APPENDECTOMY CARDIAC VALVE REPLACEMENT 1999 CARDIAC VALVE REPLACEMENT 2013 CARDIOVERSION EXTERNAL 10/01/2015 CARDIOVERSION EXTERNAL 04/14/2012 COLONOSCOPY N/A 03/18/2021 COLONOSCOPY (Incomplete) performed by Gloria Navarro MD at [facility] OR COLONOSCOPY N/A 01/27/2022 COLONOSCOPY WITH COLD SNARE POLYPECTOMY performed by Gloria Navarro MD at [facility] OR HIP ARTHROPLASTY Left KNEE ARTHROPLASTY Bilateral REPAIR ROTATOR CUFF W/ OR W/O ACROMIOPLASTY Left USE NEMO+CARDIOVERSION 03/24/2016 XA A-FIB ABLATION 10/23/2015 PVI/[facility] Social History Tobacco Use Smoking status: Former Smokeless tobacco: Former Types: Chew Vaping Use Vaping Use: Never used Substance Use Topics Alcohol use: Yes Comment: 6 beers per week Drug use: No Family [...] mouth daily. 02/17/19 Yes Doc [facility] amoxicillin-clavulanate (AUGMENTIN) 875-125 MG tablet Take 1 tablet (875 mg total) by mouth 2 (two)times daily. Yes Default History Genericprovider atorvastatin 80 MG tablet Take 1 tablet (80 mg total) by mouth nightly at bedtime. 12/31/16 Yes Doc [facility] carvedilol (COREG) 3.125 MG tablet Take 1 tablet (3.125 mg total) by mouth 2 (two) times daily. 10/09/22 Yes Default History Genericprovider cyclobenzaprine (FLEXERIL) 10 MG tablet Take 1 tablet (10 mg total) by mouth 3 (three) times daily as needed for Muscle Spasms. Yes Default History Genericprovider ferrous sulfate, 65 mg elemental, 325 (65 FE) MG tablet Take 1 tablet (325 mg total) by mouth dailywith breakfast. Yes Default History Genericprovider gabapentin (NEURONTIN) 100 MG capsule Take 6 capsules (600 mg total) by mouth daily. 12/14/22 Yes Default History Genericprovider glipiZIDE XL (GLUCOTROL XL) 5 MG 24 hr tablet Take 1 tablet (5 mg total) by mouth daily with breakfast. Patient taking differently: Take 1 tablet (5 mg total) by mouth 2 (two) times a day. 02/09/23 Yes Jamie Hilliard MD HYDROcodone-acetaminophen (NORCO) 7.5-325 MG tablet Take 1 tablet by mouth 3 (three) times daily asneeded for Pain. Yes Default History Genericprovider hydrOXYzine (ATARAX) 50 MG tablet Take 2 tablets (100 mg total) by mouth 3 (three) times daily. As needed 10/09/22 Yes Default History Genericprovider JARDIANCE 25 MG tablet Take 1 tablet (25 mg total) by mouth daily. 10/31/22 Yes Default History Genericprovider losartan (COZAAR) 50 MG tablet Take 1 tablet (50 mg total) by mouth daily. 03/30/23 Yes Default History Genericprovider metFORMIN (GLUCOPHAGE) 500 MG tablet Take 1 tablet (500 mg total) by mouth 2 (two) times daily withmeals. Yes Default History Genericprovider pantoprazole EC 40 MG tablet Take 1 tablet (40 mg total) by mouth daily. Yes Doc [facility] potassium chloride CR (KLOR-CON M) 20 MEQ tablet Take 1 tablet (20 mEq total) by mouth 2 (two) times daily. Yes Default History Genericprovider rOPINIRole (REQUIP) 4 MG tablet Take 1 tablet (4 mg total) by mouth nightly at bedtime. 10/17/22 YesDefault History Genericprovider sertraline 50 MG tablet Take 1 tablet (50 mg total) by mouth daily. 10/03/21 Yes Doc [facility] tiZANidine (ZANAFLEX) 4 MG tablet Take 1 tablet (4 mg total) by mouth 3 (three) times daily as needed. Yes Default History Genericprovider traZODone (DESYREL) 150 MG tablet Take 2 tablets (300 mg total) by mouth nightly at bedtime. 03/24/22Yes Doc [facility] warfarin (COUMADIN) 1 MG tablet Take 1 [...] per PCP 02/18/23 Yes Daniel Dupree MD aspirin 81 MG chewable tablet Chew 1 tablet (81 mg total) by mouth daily. 04/18/14 [facility] docusate sodium 100 MG capsule Take 1 capsule (100 mg total) by mouth as needed for Constipation. [facility] folic acid (FOLVITE) 1 MG tablet Take 1 tablet (1 mg total) by mouth daily. Default History Genericprovider furosemide (LASIX) 40 MG tablet Take 1 tablet (40 mg total) by mouth daily. Patient taking differently: Take 2 tablets (80 mg total) by mouth daily. 02/18/23 Daniel Dupree MD insulin detemir (LEVEMIR FLEXPEN) 100 UNIT/ML PEN Inject 15 Units into the skin nightly at bedtime. Patient taking differently: Inject 15 Units into the skin 2 (two) times daily. 02/09/23 Jamie Hilliard MD TRELEGY ELLIPTA 100-62.5-25 MCG/ACT AEROSOL POWDER, BREATH ACTIVATED Inhale 1 puff into the lungs daily. 12/23/22 Default History Genericprovider allopurinol 300 mg Oral Daily aspirin 81 mg Oral Daily atorvastatin 80 mg Oral Nightly at bedtime camphor-menthol Topical BID carvedilol 3.125 mg Oral BID empagliflozin 25 mg Oral Daily ferrous sulfate (65 mg elemental) 325 mg Oral Daily with breakfast folic acid 1 mg Oral Daily furosemide 80 mg Oral Daily gabapentin 400 mg Oral BID glipiZIDE XL 5 mg Oral Daily with breakfast hydrOXYzine 50 mg Oral TID insulin glargine 15 Units Subcutaneous Nightly at bedtime losartan 25 mg Oral Daily oxacillin 1 g Intravenous Q6H pantoprazole EC 40 mg Oral Daily potassium chloride CR 20 mEq Oral BID rOPINIRole 4 mg Oral Nightly at bedtime sertraline 50 mg Oral Daily spironolactone 25 mg Oral Daily traZODone 300 mg Oral Nightly at bedtime triamcinolone Topical BID warfarin 5 mg Oral Daily sodium chloride 250 mL (07/12/231818) albuterol sulfate HFA, cyclobenzaprine, docusate sodium, HYDROcodone- acetaminophen, morphine, tiZANidine No Known Allergies Review of Systems HENT: Negative for nosebleeds. Respiratory: Positive for shortness of breath. Negative for wheezing. Cardiovascular: Positive for leg swelling. Negative for chest pain. Gastrointestinal: Negative for abdominal pain. Genitourinary: Negative for flank pain. Musculoskeletal: Negative for falls, joint pain and myalgias. Skin: Negative for itching and rash. Neurological: Positive for weakness. 10 point ROS negative except otherwise specified in HPI Physical Exam Filed Vitals: 11/21/23 0522 07/13/23 0809 07/13/23 1031 07/13/23 1046 BP: 134/74 134/74 130/71 129/73 Pulse: 100 (!) 103 92 95 Resp: 20 18 18 18 Temp: 97.3 ??F (36.3 ??C) 97.6 ??F (36.4 ??C) 97.1 ??F (36.2 ??C) 97.2 ??F (36.2 ??C) TempSrc: Tympanic Tympanic Tympanic Tympanic SpO2: 100% 98% 98% 99% Weight: Height: Physical Exam Vitals and nursing note reviewed. Constitutional: General: He is not in acute distress. Appearance: Normal appearance. He is ill-appearing. HENT: Head: Normocephalic. Nose: Nose normal. Mouth/Throat: Mouth: Mucous membranes are moist. Eyes: Pupils: Pupils are equal, round, and reactive to light. Cardiovascular: Rate and Rhythm: Normal rate and regular rhythm. Pulses: Normal pulses. Heart sounds: Normal heart sounds. Pulmonary: Effort: Pulmonary effort is normal. Breath sounds: Normal breath sounds. Abdominal: General: Abdomen is protuberant. Bowel sounds are normal. Palpations: Abdomen is soft. Musculoskeletal: General: Normal range of motion. Cervical back: Normal range of motion and neck supple. No rigidity or tenderness. Right lower leg: Edema present. Left lower leg: Edema present. Skin: General: Skin is warm and dry. Capillary Refill: Capillary refill takes less than 2 seconds. Findings: Erythema present. Neurological: General: No focal deficit present. Mental Status: He is alert and oriented to person, place, and time. Psychiatric: Mood and Affect: Mood normal. Behavior: Behavior normal. Recent Labs Lab 07/12/23 1613 07/13/23 0508 WBC 13.94* 14.54* RBC 3.40* 3.22* HGB 7.3* 6.8* HCT 26.5* 25.1* MCV 77.9* 78.0 MCH 21.5* 21.1* MCHC 27.5* 27.1* PLT 325 338 RDW 22.5* 22.4* MPV 9.8 9.8 PERNEU 75.3 70.0 PERLYM 11.0 13.8 PERMON 10.7 13.7 PEREOS 0.9 1.3 PERBASO 0.4 0.4 NEUC 10.50* 10.18* LYMC 1.53 2.01 MONOC 1.49 1.99* EOSC 0.13 0.19 BASOC 0.06 0.06 Recent Labs Lab 07/12/233 07/13/23 0508 NA 132* 133* K 4.2 4.4 CL 97* 98 CO2 25.5 26.5 AGAP 9.5 8.5 BUN 22 22 CR 1.43* 1.35* GLU 132* 158* CA 8.8 8.8 TP 8.1 -- ALB 3.0* -- TBIL 0.6 -- ALKP 182* -- AST 19 -- ALT 22 -- Recent Labs Lab 07/12/233 07/13/23 0508 INR 3.3* 2.4* Recent Labs Lab 07/12/231612 TROP 45 Recent Labs Lab 07/12/233 07/13/23 0508 NA 132* 133* K 4.2 4.4 CL 97* 98 CO2 25.5 26.5 BUN 22 22 CR 1.43* 1.35* CA 8.8 8.8 GLU 132* 158* AGAP 9.5 8.5 TP 8.1 -- ALB 3.0* -- ALT 22 -- WBC 13.94* 14.54* HGB 7.3* 6.8* PLT 325 338 No results found for this or any previous visit. No results found for this visit on 07/12/23 (from the past 840 hour(s)). No results found for this visit on 07/12/23 (from the past 840 hour(s)). No results found. Assessment Principal Problem: CHF exacerbation ([facility]/HCC) ([facility]) SNOMED CT(R): ACUTE EXACERBATION OF CHRONIC CONGESTIVE HEART FAILURE Plan #Acute on Chronic CHF exacerbation #COPD #chest pain BNP 3565 Troponin 45 Daily weights Lasix 80 mg oral daily RT to eval and treat #anemia Hemoglobin 7.3-> 6.8-> 8.0 1 unit P RBC today Follow #cellulitis R leg Open draining area to proximal left tibia, dressing in place; see media Oxacillin 1 g every 4 hours Wound consult ABIs pending #afib #CVA Coumadin 5 mg daily Telemetry #HTN #HLD Cozaar 25 mg oral daily Aldactone 25 mg oral daily Coreg 3.125 mg oral 2 times daily Lasix 80 mg oral daily #DM2 Carb controlled diet Glipizide 5 mg orally daily Jardiance 25 mg oral daily Lantus 15 units at bedtime Bedside glucose Plan: Wound consult Blood products Antibiotics Monitor labs Due to severity of illness, expect patient to be here > 2 midnights stay. ANA MORAN NP Cosigned by Megan Infante MD at 07/30/2023 2:11 PM HUMAN RESOURCES TRAINEE N RESOURCES TRAINEE N RESOURCES TRAINEE Associated attestation - Megan Infante MD - 07/30/2023 2:11 PM HUMAN RESOURCES TRAINEE I, MEGAN INFANTE MD, participated in the care of this patient today and discussed the plan of care with the CAREY, who shared in this visit. I have reviewed the CAREY's documentation and agree with the findings except as I have documented. I personally spent 30 minutes, caring for this patient. MEGAN INFANTE MD documented in this encounter Nursing Notes * Meredith Munguia RN - 07/12/2023 11:30 PM CST Spoke with lab about pt's blood product status. mammography tech [facility] blood type [facility] and antibody presence due to previous history of antibody presence seen in pt's chart. MDOC contacted and deferred to ED MD. Currently pt is asymptomatic with hGb of 7.3 N RESOURCES TRAINEE documented in this encounter ED Notes * Palomo Young RN - 07/12/2023 6:11 PM CST Report was actually given to YUNI Roque. N RESOURCES TRAINEE * Suly Otto RN - 07/12/2023 3:43 PM CST PT ARRIVES PER POV FROM DR. RICH OFFICE. PT C/O CHEST PAIN THAT STARTED YESTERDAY. PT STATES ALSO HAS OOZING WOUNDS TO BOTH LEGS. PT CONCERNED THEY MAY BE INFECTED. PT STATES HAS HAD THESE WOUND OFF/ON X 2-3 WEEKS. PT ALERT AND ORIENTED. N RESOURCES TRAINEE * Reema Green MD - 07/12/2023 3:32 PM CST eMERGENCY dEPARTMENT eNCOUnter CHIEF COMPLAINT Chief Complaint Patient presents with Chest Pain HPI HPI Obie Lay is a 67-year-old male who presents to the ER with a complaint of leg wounds fluid leakage and chest pain. Patient has a history of irregular heartbeat CHF valvular disease and recent non-STEMI. He states has been having chest discomfort last 24 hours mild dyspnea and believes he is fluid overloaded. He has been leaking from both of his legs and has a wound in the right lower extremity above the ankle as well as in the left calf. He was seen her primary care office sent here for further evaluation. No other complaints at this time. ALLERGIES Review of patient's allergies indicates: No Known Allergies CURRENT MEDICATIONS Current Outpatient Medications Medication Sig cyclobenzaprine (FLEXERIL) 10 MG tablet Take 1 tablet (10 mg total) by mouth 3 (three) times daily as needed for Muscle Spasms. ferrous sulfate, 65 mg elemental, 325 (65 FE) MG tablet Take 1 tablet (325 mg total) by mouth dailywith breakfast. folic acid (FOLVITE) 1 MG tablet Take 1 tablet (1 mg total) by mouth daily. HYDROcodone-acetaminophen (NORCO) 7.5-325 MG tablet Take 1 tablet by mouth 3 (three) times daily asneeded for Pain. potassium chloride CR (KLOR-CON M) 20 MEQ tablet Take 1 tablet (20 mEq total) by mouth 2 (two) times daily. tiZANidine (ZANAFLEX) 4 MG tablet Take 1 tablet (4 mg total) by mouth 3 (three) times daily as needed. albuterol sulfate HFA 108 (90 Base) MCG/ACT inhaler Inhale 2 puffs into the lungs every 4 (four) hours as needed. allopurinol 300 MG tablet Take 1 tablet (300 mg total) by mouth daily. aspirin 81 MG chewable tablet Chew 1 tablet (81 mg total) by mouth daily. atorvastatin 80 MG tablet Take 1 tablet (80 mg total) by mouth nightly at bedtime. camphor-menthol (SARNA) lotion Apply topically 2 (two) times a day. carvedilol (COREG) 3.125 MG tablet Take 1 tablet (3.125 mg total) by mouth 2 (two) times daily. docusate sodium 100 MG capsule Take 1 capsule (100 mg total) by mouth as needed for Constipation. furosemide (LASIX) 40 MG tablet Take 1 tablet (40 mg total) by mouth daily. (Patient taking differently: Take 2 tablets (80 mg total) by mouth daily.) gabapentin (NEURONTIN) 400 MG capsule Take 1 capsule (400 mg total) by mouth. 1 tablet in the morning and 2 tablets at night glipiZIDE XL (GLUCOTROL XL) 5 MG 24 hr tablet Take 1 tablet (5 mg total) by mouth daily with breakfast. hydrOXYzine (ATARAX) 50 MG tablet Take 1 tablet (50 mg total) by mouth 3 (three) times daily. As needed insulin detemir (LEVEMIR FLEXPEN) 100 UNIT/ML PEN Inject 15 Units into the skin nightly at bedtime.(Patient taking differently: Inject 15 Units into the skin 2 (two) times daily.) JARDIANCE 25 MG tablet Take 1 tablet (25 mg total) by mouth daily. losartan (COZAAR) 50 MG tablet Take 0.5 tablets (25 mg total) by mouth daily. pantoprazole EC 40 MG tablet Take 1 tablet (40 mg total) by mouth daily. rOPINIRole (REQUIP) 4 MG tablet Take 1 tablet (4 mg total) by mouth nightly at bedtime. sertraline 50 MG tablet Take 1 tablet (50 mg total) by mouth daily. spironolactone (ALDACTONE) 25 MG tablet Take 1 tablet (25 mg total) by mouth daily. traZODone (DESYREL) 100 MG tablet Take 3 tablets (300 mg total) by mouth nightly at bedtime. TRELEGY ELLIPTA 100-62.5-25 MCG/ACT AEROSOL POWDER, BREATH ACTIVATED Inhale 1 puff into the lungs daily. triamcinolone (KENALOG) 0.1 % cream warfarin (COUMADIN) 1 MG tablet Take 1 tablet (1 mg total) by mouth daily. Take with 5mg tab to make it 6 mg daily. Repeat INR in 3-4 days to adjust the dose of warfarin as per PCP warfarin (COUMADIN) 5 MG tablet Take 1 tablet (5 mg total) by mouth daily. Take with 1 mg tab to make it 6 mg daily. Repeat INR in 3-4 days to adjust the dose of warfarin as per PCP PAST MEDICAL HISTORY Past Medical History: Diagnosis Date Abnormal ankle brachial index (STELLA) Acute on chronic heart failure, unspecified heart failure type ([facility]) ([facility]) Anxiety Aortic valve stenosis Arthritis Asthma, mild persistent ([facility]/HCC) 04/06/2021 Atrial fibrillation ([facility]CC) ([facility]) s/p PVI/[facility] 10/2015 Bilateral leg pain Carotid disease, bilateral ([facility]/HCC) CHF (congestive heart failure) ([facility]/HCC) ([facility] Claudication ([facility]) COPD (chronic obstructive pulmonary disease) ([facility]) ([facility]) Coronary artery disease Diabetes mellitus, type II ([facility]/HCC) ([facility]) Edema 04/19/2018 2+ pitting History of blood transfusion Hyperlipidemia Hypertension LV dysfunction Osteoarthritis PAD (peripheral artery disease) ([facility]) Pneumonia Restless leg syndrome S/P aortic valve replacement with bioprosthetic valve 2013 SOB (shortness of breath) Stroke ([facility]/HCC) ([facility]) Varicose veins of bilateral lower extremities with other complications Weight gain with edema SURGICAL HISTORY Past Surgical History: Procedure Laterality Date APPENDECTOMY CARDIAC VALVE REPLACEMENT 1999 CARDIAC VALVE REPLACEMENT 2013 CARDIOVERSION EXTERNAL 10/01/2015 CARDIOVERSION EXTERNAL 04/14/2012 COLONOSCOPY N/A 03/18/2021 COLONOSCOPY (Incomplete) performed by Gloria Navarro MD at [facility] OR COLONOSCOPY N/A 01/27/2022 COLONOSCOPY WITH COLD SNARE POLYPECTOMY performed by Gloria Navarro MD at [facility] OR HIP ARTHROPLASTY Left KNEE ARTHROPLASTY Bilateral REPAIR ROTATOR CUFF W/ OR W/O ACROMIOPLASTY Left USE NEMO+CARDIOVERSION 03/24/2016 XA A-FIB ABLATION 10/23/2015 PVI/[facility] SOCIAL HISTORY Social History Socioeconomic History Marital status: Spouse name: Ema Number of children: 2 Occupational History Employer: NOT EMPLOYED Tobacco Use Smoking status: Former Smokeless tobacco: Former Types: Chew Vaping Use Vaping Use: Never used Substance and Sexual Activity Alcohol use: Yes Comment: 6 beers per week Drug use: No Other Topics Concern Exercise No Special Diet No Caffeine Concern No Social Determinants of Health Financial Resource Strain: Patient Declined (02/16/2023) Overall Financial Resource Strain (CARDIA) Difficulty of Paying Living Expenses: Patient declined Food Insecurity: Patient Declined (02/16/2023) Hunger Vital Sign Worried About Running Out of Food in the Last Year: Patient declined Ran Out of Food in the Last Year: Patient declined Recent Concern: Food Insecurity - Food Insecurity Present (02/06/2023) Hunger Vital Sign Worried About Running Out of Food in the Last Year: Sometimes true Ran Out of Food in the Last Year: Sometimes true Transportation Needs: Patient Declined (02/16/2023) PRAPARE - Transportation Lack of Transportation (Medical): Patient declined Lack of Transportation (Non-Medical): Patient declined Stress: Patient Declined (02/16/2023) [facility] [place] of Occupational Health - Occupational Stress Questionnaire Feeling of Stress : Patient declined Social Connections: Patient Declined (02/16/2023) Social Connection and Isolation Panel [NHANES] Frequency of Communication with Friends and Family: Patient declined Frequency of Social Gatherings with Friends and Family: Patient declined Attends [employer] Services: Patient declined Active Member of Clubs or Organizations: Patient declined Attends Club or Organization Meetings: Patient declined Marital Status: Patient declined Recent Concern: Social Connections - Moderately Isolated (02/06/2023) Social Connection and Isolation Panel [NHANES] Frequency of Communication with Friends and Family: Twice a week Frequency of Social Gatherings with Friends and Family: Twice a week Attends [employer] Services: More than 4 times per year Active Member of Clubs or Organizations: No Attends Club or Organization Meetings: Never Marital Status: Intimate Partner Violence: Patient Declined (02/16/2023) Humiliation, Afraid, Rape, and Kick questionnaire Fear of Current or Ex-Partner: Patient declined Emotionally Abused: Patient declined Physically Abused: Patient declined Sexually Abused: Patient declined Housing Stability: Unknown (02/16/2023) Housing Stability Vital Sign Unable to Pay for Housing in the Last Year: Patient refused Number of Places Lived in the Last Year: 1 Unstable Housing in the Last Year: Patient refused FAMILY HISTORY Family History Problem Relation Name Age of Onset TB Mother REVIEW OF SYSTEMS Review of Systems All other ROS negative unless noted above in HPI. PHYSICAL EXAM Physical Exam Filed Vitals: 07/12/23 1600 07/12/23 1630 07/12/23 1700 07/12/23 1730 BP: Pulse: (!) 106 (!) 105 (!) 110 (!) 104 Resp: 17 13 20 15 Temp: TempSrc: SpO2: 100% 100% 97% Weight: Height: The patient is a well developed and well nourished adult male in no distress, alert and oriented. HEENT: PERRL, EOMI Nose without drainage Throat without lesions, mucous membranes moist NECK: Supple without adenopathy or rigidity CHEST: Lungs clear and equal to auscultation Heart regular rate and rhythm without murmur ABD: Soft, NABS, non tender EXT: No clubbing, cyanosis, 1-2+ bilateral lower extremity edema, skin breakdown right lower extremity and a smaller area in the left calf with serous fluid drainage NEURO: CN II-XII intact, no focal weakness SKIN: No rash or significant lesions EKG EKG on my read shows a left bundle branch block pattern no obvious acute ischemic changes RADIOLOGY XR CHEST PORTABLE Final Result by User, [id number] (07/12 161) Examination: Portable chest. Exam time: 1542 hours. Clinical history: Chest pain. Comparison: 02/16/2023. Technique: AP upright view. Findings: Allowing for differences in projection and rotation, the cardiomediastinal silhouette is stable. The heart remains enlarged. Changes from median sternotomy again evident. There is pulmonary vascular congestion with perivascular haziness and interstitial prominence compatible with interstitial edema. No confluent infiltrates or effusions are identified. The visualized bony thorax is stable. IMPRESSION: Cardiomegaly with congestive changes as described. No focal infiltrates. Ordered By: REEMA GREEN Interpreted By: Nicko Portillo MD, 07/12/2023 4:13 PM LABS Results for orders placed or performed during the hospital encounter of 07/12/23 CBC W/DIFF AUTOMATED Result Value Ref Range WBC 13.94 (H) 4.00 - 10.80 x10'3/uL RBC 3.40 (L) 4.50 - 6.10 x10'6/uL HGB 7.3 (L) 13.0 - 18.0 G/DL HCT 26.5 (L) 37.0 - 52.0 % MCV 77.9 (L) 78.0 - 100.0 FL MCH 21.5 (L) 27.0 - 31.0 PG MCHC 27.5 (L) 33.0 - 36.0 G/DL RDW 22.5 (H) 11.5 - 14.5 % PLT 325 150 - 350 x10'3/uL MPV 9.8 7.4 - 10.4 FL CBC COMMENT NORMAL REFERENCE RANGE NOT ESTABLISHED FOR THE PROPORTIONAL LEUKOCYTE DIFFERENTIAL. NEUTROPHILS 75.3 % LYMPHOCYTES 11.0 % MONOCYTES 10.7 % EOSINOPHILS 0.9 % BASOPHILS 0.4 % IMMATURE GRANS 1.7 % NRBC 0.4 % ABS. NEUTROPHILS 10.50 (H) 1.60 - 8.30 x10'3/uL ABS. LYMPHOCYTES 1.53 0.80 - 4.70 x10'3/uL ABS. MONOCYTES 1.49 0.00 - 1.50 x10'3/uL ABS. EOSINOPHILS 0.13 0.00 - 0.40 x10'3/uL ABS. BASOPHILS 0.06 0.00 - 0.20 x10'3/uL ABS. IMMATURE GRANULOCYTES 0.24 (H) 0.00 - 0.03 x10'3/uL ABS. NUCLEATED RBC'S 0.06 (H) 0.00 x10'3/uL PLT MORPH. NORMAL RBC MORPHOLOGY 2+ COMPREHENSIVE METABOLIC PANEL Result Value Ref Range SODIUM S/P/B 132 (L) 136 - 145 MMOL/L POTASSIUM S/P/B 4.2 3.5 - 5.1 MMOL/L CHLORIDE S/P/B 97 (L) 98 - 107 MMOL/L CO2 25.5 21.0 - 32.0 MMOL/L GLUCOSE 132 (H) 70 - 99 MG/DL BUN 22 6 - 24 MG/DL CREATININE S/P/B 1.43 (H) 0.70 - 1.30 MG/DL CALCIUM S/P/B 8.8 8.4 - 10.5 MG/DL BILIRUBIN TOTAL S/P/B 0.6 0.2 - 1.0 MG/DL ALKALINE PHOSPHATASE S/P/B 182 (H) 45 - 115 U/L AST 19 15 - 37 U/L ALT 22 16 - 63 U/L TOTAL PROTEIN S/P/B 8.1 6.4 - 8.2 G/DL ALBUMIN S/P/B 3.0 (L) 3.4 - 5.0 G/DL ANION GAP 9.5 5.0 - 15.0 MMOL/L OSMOLALITY (CALC) 279 MOSM/KG GFR ESTIMATE 53 (L) >89 ML/MIN/1.73 M2 GFR NOTES GFR REFERENCES: PRO-BRAIN NATRIURETIC PEPTIDE Result Value Ref Range PRO-B TYPE NATRIURETIC PEPTIDE 3,565 (H) <125 PG/ML TROPONIN, QUANT Result Value Ref Range TROPONIN I HIGH SENSITIVITY 45 0 - 76 ng/L LACTIC ACID W REFLEX (SEPSIS) Result Value Ref Range LACTIC ACID 1.9 0.4 - 2.0 MMOL/L PROTIME/INR, VENOUS Result Value Ref Range PROTIME 39.1 (H) 9.4 - 12.5 SEC INR 3.3 (H) 0.8 - 1.0 ED MEDICATIONS Medications sodium chloride 0.9% infusion (has no administration in time range) cefTRIAXone (ROCEPHIN) 1 g in sodium chloride 0.9 % 50 mL IVPB (1 g Intravenous New Bag 07/12/23 1742) PROCEDURES Procedures CONSULTS: ED COURSE & MEDICAL DECISION MAKING MDM Amount and/or Complexity of Data Reviewed Clinical lab tests: reviewed Tests in the radiology section of CPT??: reviewed Tests in the medicine section of CPT??: reviewed Decide to obtain previous medical records or to obtain history from someone other than the patient:yes ED Course as of 07/12/23 1758 WedJul 12, 2023 1621 X-ray report is noted with CHF changes [WM] 1650 TROPONIN, QUANT [WM] 1651 LACTIC ACID W REFLEX (SEPSIS) [WM] 1651 PROTIME/INR, VENOUS(!) [WM] 1651 COMPREHENSIVE METABOLIC PANEL(!) [WM] 1651 PRO-BRAIN NATRIURETIC PEPTIDE(!) [WM] 1651 CBC W/DIFF AUTOMATED(!) Laboratory studies show slight white count elevation with new worsening anemia, slightly supratherapeutic INR, normal troponin and lactic acid, chronic kidney dysfunction, and chronic BNP elevation. [WM] 1756 I discussed the patient with Dr. Infante. Patient is a complicated medical history appears to have CHF exacerbation now in part precipitated by worsening anemia which may be related to his blood thinner. He now tells me that he had several teeth pulled a week or 2 ago when he bled for 6 days sothat certainly was contributing as well. He states his bowels have been normal as far as he knows and he has never had GI bleeding in the past. That being said we will hold his Coumadin tonight and guaiac his stool. We will start intravenous Lasix. His troponin is normal and his EKG is unchanged sohis chest pain does not appear to be an acute myocardial infarction. We will admit for further treatment. [WM] ED Course User Index [WM] Reema Green MD I ordered Lasix blood and antibiotics for his heart failure anemia and cellulitis respectively. He is admitted in stable condition. FINAL IMPRESSION SNOMED CT(R) 1. CHF exacerbation (HHS/HCC) (CMS/HCC) ACUTE EXACERBATION OF CHRONIC CONGESTIVE HEART FAILURE 2. Chest pain CHEST PAIN 3. Cellulitis of right leg CELLULITIS OF RIGHT LOWER LIMB 4. Anemia ANEMIA No follow-up provider specified. New Prescriptions No medications on file Reema Green MD 07/12/23 6571 N RESOURCES TRAINEE documented in this encounter Plan of Treatment Upcoming Encounters Date Type Department Care Team (Late st Contact Info) Description 09/25/2024 2:00 PM H[employer] TRAINEE Appointment [facility] [address] [place] [address] Zayra Powell, REHABILITATION MANAGER [address] [place] [address] 10/16/2024 3:30 PM [employer]AN [employer]OURCES TRAINEE Office Visit [facility] [address] [place] [phone] Brit Gonzáles MD [address] [place] [address] Pending Results Name Type Priority Associated Diagnoses Date /Time RBC UNITS, 1 Units Blood Bank STAT 2022 5:23 PM [employer]EE Scheduled Orders Name Type Priority Associated Diagnoses Orde r Schedule RBC UNITS, 1 Units Blood Bank Routine Once f or 1 Occurrences starting 07/12/2023 until 07/12/2023 documented as of this encounter Goals Goal Patient Goal Type Associated Problems Recent Progress Patient-Stated? Author Family - family caregiver with be involved in care transitions and discharge planning Lifestyle Karen Diane RN documented as of this encounter Procedures Procedure Name Priority Date/Time Associated Diagnosis Comments POCT GLUCOSE - VALLECILLO DOCKED DEVICE Routine 07/16/2023 6:01 AM H[employer]AN [employer]OURCES TRAINEE PROTHROMBIN TIME, VENOUS Routine 07/16/2023 5:24 AM [employer]AN [employer]OURCES TRAINEE COMPREHENSIVE METABOLIC PANEL Routine 07/16/2023 5:24 AM H[employer]AN [employer]OURCES TRAINEE CBC W/DIFF AUTOMATED Routine 07/16/2023 5:24 AM H[employer]OURCES TRAINEE POCT GLUCOSE - VALLECILLO DOCKED DEVICE Routine 07/15/2023 8:26 PM HUM[employer]OURCES TRAINEE POCT GLUCOSE - VALLECILLO DOCKED DEVICE Routine 07/15/2023 5:06 PM HUMAN [employer]OURCES TRAINEE POCT GLUCOSE - VALLECILLO DOCKED DEVICE Routine 07/15/2023 11:09 AM HUMAN RESOURCES TRAINEE POCT GLUCOSE - VALLECILLO DOCKED DEVICE Routine 07/15/2023 5:54 AM H[employer]OURCES TRAINEE PROTHROMBIN TIME, VENOUS Routine 07/15/2023 4:57 AM HUM[employer] RESOURCES TRAINEE COMPREHENSIVE METABOLIC PANEL Routine 07/15/2023 4:57 AM HUMAN [employer]OURCES TRAINEE CBC W/DIFF AUTOMATED Routine 07/15/2023 4:57 AM HUM[employer]OURCES TRAINEE POCT GLUCOSE - VALLECILLO DOCKED DEVICE Routine 07/14/2023 7:57 PM [address] [address] ABD+PEL WO CON STAT 07/14/2023 5:0 7 PM HUMAN RESOURCES TRAINEE POCT GLUCOSE - VALLECILLO DOCKED DEVICE Routine 07/14/2023 4:29 PM HUMAN RESOURCES TRAINEE USV STELLA LTD ELZA Today 07/14/2023 2:27 PM HUMAN RESOURCES TRAINEE POCT GLUCOSE - VALLECILLO DOCKED DEVICE Routine 07/14/2023 11:05 AM HUMAN RESOURCES TRAINEE OCCULT BLOOD, FECES STAT 07/14/2023 9 :55 AM HUMAN RESOURCES TRAINEE POCT GLUCOSE - VALLECILLO DOCKED DEVICE Routine 07/14/2023 6:04 AM HUMAN RESOURCES TRAINEE PROTHROMBIN TIME, VENOUS Routine 07/14/2023 5:08 AM HUMAN RESOURCES TRAINEE COMPREHENSIVE METABOLIC PANEL Routine 07/14/2023 5:08 AM HUM[employer]OURCES TRAINEE CBC W/DIFF AUTOMATED Routine 07/14/2023 5:08 AM HUMAN RESOURCES TRAINEE POCT GLUCOSE - VALLECILLO DOCKED DEVICE Routine 07/13/2023 9:34 PM HUMAN RESOURCES TRAINEE POCT GLUCOSE - VALLECILLO DOCKED DEVICE Routine 07/13/2023 3:55 PM HUMAN RESOURCES TRAINEE HEMOGLOBIN AND HEMATOCRIT Routine 07/13/2023 3:10 PM HUM[employer] RESOURCES TRAINEE POCT GLUCOSE - VALLECILLO DOCKED DEVICE Routine 07/13/2023 11:39 AM HUMAN RESOURCES TRAINEE TRANSFUSE RED BLOOD CELLS STAT 07/13/2023 10:31 AM HUMAN RESOURCES TRAINEE POCT GLUCOSE - VALLECILLO DOCKED DEVICE Routine 07/13/2023 5:49 AM HUMAN RESOURCES TRAINEE PROTHROMBIN TIME, VENOUS Routine 07/13/2023 5:08 AM HUMAN RESOURCES TRAINEE BASIC METABOLIC PANEL Routine 07/13/2023 5:08 AM HUMAN RESOURCES TRAINEE CBC W/DIFF AUTOMATED Routine 07/13/2023 5:08 AM HUMAN RESOURCES TRAINEE TYPE & SCREEN STAT 07/12/2023 5:23 PM HUMAN RESOURCES TRAINEE CULTURE, BACTERIA, BLOOD STAT 07/12/2023 4:22 PM HUMAN RESOURCES TRAINEE LACTIC ACID W REFLEX (SEPSIS) STAT 07/12/2023 4:13 PM HUMAN RESOURCES TRAINEE PRO-BRAIN NATRIURETIC PEPTIDE STAT 07/12/2023 4:13 PM HUMAN RESOURCES TRAINEE PROTHROMBIN TIME, VENOUS STAT 07/12/2023 4:13 PM HUMAN RESOURCES TRAINEE COMPREHENSIVE METABOLIC PANEL STAT 07/12/2023 4:13 PM HUMAN [employer]OURCES TRAINEE CULTURE, BACTERIA, BLOOD STAT 07/12/2023 4:13 PM HUMAN [employer]OURCES TRAINEE CBC W/DIFF AUTOMATED STAT 07/12/2023 4:13 PM HUMAN RESOURCES TRAINEE TROPONIN, QUANT STAT 07/12/2023 4:13 PM HUMAN RESOURCES TRAINEE XR CHEST PORTABLE STAT 07/12/2023 4:0 6 PM HUMAN [employer]OURCES TRAINEE ECG 12-LEAD Routine 07/12/2023 3:37 PM H[employer]AN [employer]OURCES TRAINEE documented in this encounter Results * (ABNORMAL) CBC W/DIFF AUTOMATED (07/20/2023 11:42 AM HUMAN RESOURCES TRAINEE) WBC 8.00 4.00 - 10.80 x10'3/uL 07/20/2023 12:03 PM HUMAN RESOURCES TRAINEE [facility] RBC 3.63(L) 4.50 - 6.10 x10'6/uL 07/20/2023 12:03 PM HUMAN RESOURCES TRAINEE [facility] HGB 8.1(L) 13.0 - 18.0 G/DL 07/20/2023 12:03 PM HUMAN RESOURCES TRAINEE [facility] HCT 29.1(L) 37.0 - 52.0 % 07/20/2023 12:03 PM HUMAN RESOURCES TRAINEE [facility] MCV 80.2 78.0 - 100.0 FL 07/20/2023 12:03 PM HUMAN RESOURCES TRAINEE [facility] MCH 22.3(L) 27.0 - 31.0 PG 07/20/2023 12:03 PM HUMAN [employer]OURCES TRAINEE [facility] MCHC 27.8(L) 33.0 - 36.0 G/DL 07/20/2023 12:03 PM HUMAN RESOURCES TRAINEE [facility] RDW 21.6(H) 11.5 - 14.5 % 07/20/2023 12:03 PM HUMAN RESOURCES TRAINEE [facility] PLT 232 150 - 350 x10'3/uL 07/20/2023 12:[address] [facility] MPV 9.9 7.4 - 10.4 FL 07/20/2023 12:03 PM HUMAN RESOURCES TRAINEE [facility] CBC COMMENT NORMAL REFERENCE RANGE NOT ESTABLISHED FOR THE PROPORTIONAL LEUKOCYTE DIFFERENTIAL. 07/20/2023 12:03 PM HUMAN RESOURCES TRAINEE [facility] NEUTROPHILS % 69.1 % 07/20/2023 1:30 PM HUMAN RESOURCES TRAINEE [facility] LYMPHOCYTES % 14.4 % 07/20/2023 1:30 PM [employer]UM[employer]OURCES TRAINEE [facility] MONOCYTES % 10.6 % 07/20/2023 1:30 PM [employer]OURCES TRAINEE [facility] EOSINOPHILS % 5.0 % 07/20/2023 1:30 PM HUM[employer]OURCES TRAINEE [facility] BASOPHILS % 0.5 % 07/20/2023 1:30 PM [employer]OURCES TRAINEE [facility] IMMATURE GRANS % 0.4 % 07/20/20 1:30 PM HUMAN RESOURCES TRAINEE [facility] NRBC 0.0 % 07/20/2023 1:30 PM HUM[employer] RESOURCES TRAINEE [facility] ABS. NEUTROPHILS 5.53 1.60 - 8.30 x10'3/uL 07/20/2023 1:30 PM HUM[employer]OURCES TRAINEE [facility] ABS. LYMPHOCYTES 1.15 0.80 - 4.70 x10'3/uL 07/20/2023 1:30 PM HUM[employer]OURCES TRAINEE [facility] ABS. MONOCYTES 0.85 0.00 - 1.50 x10'3/uL 07/20/2023 1:30 PM HUMAN [employer]OURCES TRAINEE [facility] ABS. EOSINOPHILS 0.40 0.00 - 0.40 x10'3/uL 07/20/2023 1:30 PM HUM[employer]OURCES TRAINEE [facility] ABS. BASOPHILS 0.04 0.00 - 0.20 x10'3/uL 07/20/2023 1:30 PM HUMAN RESOURCES TRAINEE [facility] ABS. IMMATURE GRANULOCYTES 0.03 0.00 - 0.03 x10'3/uL 07/20/2023 1:30 PM HUMAN RESOURCES TRAINEE [facility] ABS. NUCLEATED RBC'S 0.00 0.00 x10'3/uL 07/20/2023 1:[address] [facility] PLT MORPH. NORMAL 07/20/2023 1:30 PM HUMAN RESOURCES TRAINEE [facility] RBC MORPHOLOGY 2+ 07/20/2023 1:[address] [facility] Comment: HYPOCHROMASIA 1+ ANISOCYTOSIS 1+ POIKILOCYTOSIS 07/20/2023 11:4 2 AM HUMAN RESOURCES TRAINEE Ana Moran NP LABORATORY Final Result [facility] [address] [place] [address], * (ABNORMAL) COMPREHENSIVE METABOLIC PANEL (07/20/2023 11:42 AM HUMAN RESOURCES TRAINEE) SODIUM S/P/B 135(L) 136 - 145 MMOL/L 07/20/2023 12:[address] [facility] POTASSIUM S/P/B 4.4 3.5 - 5.1 MMOL/L 07/20/2023 12:[address] [facility] CHLORIDE S/P/B 97(L) 98 - 107 MMOL/L 07/20/2023 12:[address] [facility] CO2 29.5 21.0 - 32.0 MMOL/L 07/20/2023 12:[address] [facility] GLUCOSE 184(H) 70 - 99 MG/DL 07/20/2023 12:[address] [facility] Comment: FASTING GLUCOSE 100 TO 125 MG/DL IS CONSISTENT WITH IMPAIRED FASTING GLUCOSE. FASTING GLUCOSE >125 MG/DL IS CONSISTENT WITH DIABETES. RANDOM GLUCOSE >200 MG/DL WITH HYPERGLYCEMIC SYMPTOMS IS CONSISTENT WITH DIABETES. PER ADA GUIDELINES BUN 53(H) 6 - 24 MG/DL 07/20/2023 12:[address] [facility] CREATININE S/P/B 1.67(H) 0.70 - 1.30 MG/DL 07/20/2023 12:[address] [facility] CALCIUM S/P/B 9.3 8.4 - 10.5 MG/DL 07/20/2023 12:[address] [facility] BILIRUBIN TOTAL S/P/B 0.6 0.2 - 1.0 MG/DL 07/20/2023 12:[address] [facility] Comment: THIS ASSAY IS NOT RECOMMENDED FOR PATIENTS UNDERGOING TREATMENT WITH ELTROMBOPAG DUE TO THE POTENTIAL FOR FALSELY ELEVATED RESULTS. ALKALINE PHOSPHATASE S/P/B 134(H) 45 - 115 U/L 07/20/2023 12:[address] [facility] AST 18 15 - 37 U/L 07/20/2023 12:[address] [facility] ALT 16 16 - 63 U/L 07/20/2023 12:[address] [facility] TOTAL PROTEIN S/P/B 8.1 6.4 - 8.2 G/DL 07/20/2023 12:[address] [facility] ALBUMIN S/P/B 3.1(L) 3.4 - 5.0 G/DL 07/20/2023 12:[address] [facility] ANION GAP 8.5 5.0 - 15.0 MMOL/L 07/20/2023 12:[address] [facility] OSMOLALITY (CALC) 299 MOSM/KG 023 12:[address] [facility] Comment:REFERENCE RANGE NOT ESTABLISHED GFR ESTIMATE 44(L) >89 ML/MIN/1. 73 M2 07/20/2023 12:[address] [facility] GFR NOTES GFR REFERENCE S: 07/20/2023 12:[address] [facility] Comment: THE ESTIMATED [...] ml/min/1.73 m2 G5,KIDNEY FAILURE: <15 ml/min/1.73 m2 07/20/2023 11:4 2 AM HUMAN RESOURCES TRAINEE us Mookie Oh [employer] [facility] Final Result Performing Organization Address [facility] Co de Phone Number [facility] [address] [place] [address], * (ABNORMAL) PROTIME/INR, VENOUS (07/20/2023 11:42 AM HUMAN [employer]OURCES TRAINEE) PROTIME 13.6(H) 9.4 - 12.5 SEC 07/20/2023 1:07 PM HUM[employer]OURCES TRAINEE [facility] INR 1.2(H) 0.8 - 1.0 07/20/2023 1:07 PM [employer]OURCES TRAINEE [facility] 07/20/2023 11:4 2 AM HUM[employer]OURCES TRAINEE us Mookie Oh [employer] [facility] Final Result Performing Organization Address [facility] de Phone Number [facility] [address] [place] [id number], * (ABNORMAL) POCT glucose (07/16/2023 6:01 AM HUM[employer] RESOURCES TRAINEE) GLUCOSE POC 165(H) 70 - 99 MG/DL 07/16/2023 6:33 AM HUMAN [employer]OURCES TRAINEE [facility] 07/16/2023 6:01 AM HUM[employer]OURCES TRAINEE us Megan Infante MD POCT ORDERABLES - DEVICE Final R esult Performing Organization Address [facility] de Phone Number [facility] [address] [place] [id number], * (ABNORMAL) COMPREHENSIVE METABOLIC PANEL (07/16/2023 5:24 AM HUM[employer]OURCES TRAINEE) SODIUM S/P/B 136 136 - 145 MMOL/L 07/16/2023 5:[address] [facility] POTASSIUM S/P/B 4.4 3.5 - 5.1 MMOL/L 07/16/2023 5:[address] [facility] CHLORIDE S/P/B 100 98 - 107 MMOL/L 07/16/2023 5:[address] [facility] CO2 29.1 21.0 - 32.0 MMOL/L 07/16/2023 5:[address] [facility] GLUCOSE 174(H) 70 - 99 MG/DL 07/16/2023 5:[address] [facility] Comment: FASTING GLUCOSE 100 TO 125 MG/DL IS CONSISTENT WITH IMPAIRED FASTING GLUCOSE. FASTING GLUCOSE >125 MG/DL IS CONSISTENT WITH DIABETES. RANDOM GLUCOSE >200 MG/DL WITH HYPERGLYCEMIC SYMPTOMS IS CONSISTENT WITH DIABETES. PER ADA GUIDELINES BUN 28(H) 6 - 24 MG/DL 07/16/2023 5:[address] [facility] CREATININE S/P/B 1.68(H) 0.70 - 1.30 MG/DL 07/16/2023 5:[address] [facility] CALCIUM S/P/B 9.0 8.4 - 10.5 MG/DL 07/16/2023 5:[address] [facility] BILIRUBIN TOTAL S/P/B 0.5 0.2 - 1.0 MG/DL 07/16/2023 5:[address] [facility] Comment: THIS ASSAY IS NOT RECOMMENDED FOR PATIENTS UNDERGOING TREATMENT WITH ELTROMBOPAG DUE TO THE POTENTIAL FOR FALSELY ELEVATED RESULTS. ALKALINE PHOSPHATASE S/P/B 145(H) 45 - 115 U/L 07/16/2023 5:[address] [facility] AST 19 15 - 37 U/L 07/16/2023 5:[address] [facility] ALT 14(L) 16 - 63 U/L 07/16/2023 5:[address] [facility] TOTAL PROTEIN S/P/B 7.7 6.4 - 8.2 G/DL 07/16/2023 5:50 AM H[employer] TRAINEE [facility] ALBUMIN S/P/B 2.8(L) 3.4 - 5.0 G/DL 07/16/2023 5:50 AM H[employer] TRAINEE [facility] ANION GAP 6.9 5.0 - 15.0 MMOL/L 07/16/2023 5:50 AM H[employer] TRA[employer]EE [facility] OSMOLALITY (CALC) 292 MOSM/KG 023 5:50 AM [employer] TRA[employer]EE [facility] Comment:REFERENCE RANGE NOT ESTABLISHED GFR ESTIMATE 44(L) >89 ML/MIN/1. 73 M2 07/16/2023 5:[address] [facility] GFR NOTES GFR REFERENCE S: 07/16/2023 5:[address] [facility] Comment: THE ESTIMATED [...] ml/min/1.73 m2 G5,KIDNEY FAILURE: <15 ml/min/1.73 m2 07/16/2023 5:24 AM HUM[employer]OURCES TRAINEE Shayy Duke [facility]- LABORATORY Final Res ult [facility] [address] [place] [address], * (ABNORMAL) CBC W/DIFF AUTOMATED (07/16/2023 5:24 AM HUM[employer] TRAINEE) WBC 11.60(H) 4.00 - 10.80 x10'3/uL 07/16/2023 5:54 AM H[employer]OURCES TRAINEE [facility] RBC 3.75(L) 4.50 - 6.10 x10'6/uL 07/16/2023 5:[address] [facility] HGB 8.2(L) 13.0 - 18.0 G/DL 07/16/2023 5:[address] [facility] HCT 29.9(L) 37.0 - 52.0 % 07/16/2023 5:[address] [facility] MCV 79.7 78.0 - 100.0 FL 07/16/2023 5:[address] [facility] MCH 21.9(L) 27.0 - 31.0 PG 07/16/2023 5:[address] [facility] MCHC 27.4(L) 33.0 - 36.0 G/DL 07/16/2023 5:[address] [facility] RDW 22.5(H) 11.5 - 14.5 % 07/16/2023 5:[address] [facility] PLT 289 150 - 350 x10'3/uL 07/16/2023 5:[address] [facility] MPV 9.3 7.4 - 10.4 FL 07/16/2023 5:[address] [facility] CBC COMMENT NORMAL REFERENCE RANGE NOT ESTABLISHED FOR THE PROPORTIONAL LEUKOCYTE DIFFERENTIAL. 07/16/2023 5:[address] [facility] NEUTROPHILS % 68.6 % 07/16/2023 6:[address] [facility] LYMPHOCYTES % 14.2 % 07/16/2023 6:[address] [facility] MONOCYTES % 12.6 % 07/16/2023 6:[address] [facility] EOSINOPHILS % 3.5 % 07/16/2023 6:[address] [facility] BASOPHILS % 0.6 % 07/16/2023 6:[address] [facility] IMMATURE GRANS % 0.5 % 07/16/20 6:[address] [facility] NRBC 0.0 % 07/16/2023 6:[address] [facility] ABS. NEUTROPHILS 7.96 1.60 - 8.30 x10'3/uL 07/16/2023 6:44 AM H[employer] TRAINEE [facility] ABS. LYMPHOCYTES 1.65 0.80 - 4.70 x10'3/uL 07/16/2023 6:44 AM H[employer] TRAINEE [facility] ABS. MONOCYTES 1.46 0.00 - 1.50 x10'3/uL 07/16/2023 6:44 AM [employer] TRAINEE [facility] ABS. EOSINOPHILS 0.41(H) 0.00 - 0.40 x10'3/uL 07/16/2023 6:44 AM H[employer] TRAINEE [facility] ABS. BASOPHILS 0.07 0.00 - 0.20 x10'3/uL 07/16/2023 6:[address] [facility] ABS. IMMATURE GRANULOCYTES 0.06(H) 0.00 - 0.03 x10'3/uL 07/16/2023 6:[address] [facility] ABS. NUCLEATED RBC'S 0.00 0.00 x10'3/uL 07/16/2023 6:[address] [facility] PLT MORPH. NORMAL 07/16/2023 6:[address] [facility] RBC MORPHOLOGY 3+ 07/16/2023 6:[address] [facility] Comment: ANISOCYTOSIS 1+ HYPOCHROMASIA 2+ POIKILOCYTOSIS 2+ TEARDROP CELLS 1+ ELLIPTOCYTES 07/16/2023 5:24 AM [employer] Shayy NGUYEN- LABORATORY Final Res ult [facility] [address] [place] [address], * (ABNORMAL) PROTIME/INR, VENOUS (07/16/2023 5:24 AM [employer]) PROTIME 18.7(H) 9.4 - 12.5 SEC 07/16/2023 5:48 AM [employer] [facility] INR 1.6(H) 0.8 - 1.0 07/16/2023 5:48 AM [employer] [facility] 07/16/2023 5:24 AM [employer] us Megan Infante MD LABORATORY Final Result Performing Organization Address [facility] Co de Phone Number [facility] [address] [place] [id number], * (ABNORMAL) POCT glucose (07/15/2023 8:26 PM [employer]) GLUCOSE POC 195(H) 70 - 99 MG/DL 07/15/2023 8:39 PM [employer] [facility] 07/15/2023 8:26 PM [employer] us Megan Infante MD POCT ORDERABLES - DEVICE Final R esult Performing Organization Address [facility] Co de Phone Number [facility] [address] [place] [address], [place] [phone] * (ABNORMAL) POCT glucose (07/15/2023 5:06 PM [employer]) GLUCOSE POC 267(H) 70 - 99 MG/DL 07/15/2023 5:09 PM [employer] [facility] 07/15/2023 5:06 PM [employer] us Megan Infante MD POCT ORDERABLES - DEVICE Final R esult Performing Organization Address [facility] Co de Phone Number [facility] [address] [place] [phone], * (ABNORMAL) POCT glucose (07/15/2023 11:09 AM [employer]) GLUCOSE POC 257(H) 70 - 99 MG/DL 07/16/2023 1:40 AM [employer] [facility] 07/15/2023 11:0 9 AM [employer] us Megan Infante MD POCT ORDERABLES - DEVICE Final R esult Performing Organization Address City/[facility]/ZIP Co de Phone Number [facility] [address] [place] [address], [place] [phone] * (ABNORMAL) POCT glucose (07/15/2023 5:54 AM [employer]) GLUCOSE POC 202(H) 70 - 99 MG/DL 07/15/2023 5:57 AM [employer] [facility] Comment:Value Noted, No Miri tment Given 07/15/2023 5:54 AM [employer] us Megan Infante MD POCT ORDERABLES - DEVICE Final R esult Performing Organization Address [facility] Co de Phone Number [facility] [address] [place] [address], [place] [phone] * (ABNORMAL) COMPREHENSIVE METABOLIC PANEL (07/15/2023 4:57 AM [employer]) SODIUM S/P/B 134(L) 136 - 145 MMOL/L 07/15/2023 5:[address] [facility] POTASSIUM S/P/B 4.7 3.5 - 5.1 MMOL/L 07/15/2023 5:[address] [facility] CHLORIDE S/P/B 98 98 - 107 MMOL/L 07/15/2023 5:[address] [facility] CO2 27.2 21.0 - 32.0 MMOL/L 07/15/2023 5:[address] [facility] GLUCOSE 191(H) 70 - 99 MG/DL 07/15/2023 5:[address] [facility] Comment: FASTING GLUCOSE 100 TO 125 MG/DL IS CONSISTENT WITH IMPAIRED FASTING GLUCOSE. FASTING GLUCOSE >125 MG/DL IS CONSISTENT WITH DIABETES. RANDOM GLUCOSE >200 MG/DL WITH HYPERGLYCEMIC SYMPTOMS IS CONSISTENT WITH DIABETES. PER ADA GUIDELINES BUN 23 6 - 24 MG/DL 07/15/2023 5:[address] [facility] CREATININE S/P/B 1.53(H) 0.70 - 1.30 MG/DL 07/15/2023 5:[address] [facility] CALCIUM S/P/B 8.8 8.4 - 10.5 MG/DL 07/15/2023 5:[address] [facility] BILIRUBIN TOTAL S/P/B 0.6 0.2 - 1.0 MG/DL 07/15/2023 5:[address] [facility] Comment: THIS ASSAY IS NOT RECOMMENDED FOR PATIENTS UNDERGOING TREATMENT WITH ELTROMBOPAG DUE TO THE POTENTIAL FOR FALSELY ELEVATED RESULTS. ALKALINE PHOSPHATASE S/P/B 154(H) 45 - 115 U/L 07/15/2023 5:[address] [facility] AST 20 15 - 37 U/L 07/15/2023 5:[address] [facility] ALT 20 16 - 63 U/L 07/15/2023 5:[address] [facility] TOTAL PROTEIN S/P/B 7.8 6.4 - 8.2 G/DL 07/15/2023 5:[address] [facility] ALBUMIN S/P/B 2.9(L) 3.4 - 5.0 G/DL 07/15/2023 5:[address] [facility] ANION GAP 8.8 5.0 - 15.0 MMOL/L 07/15/2023 5:[address] [facility] OSMOLALITY (CALC) 287 MOSM/KG 023 5:[address] [facility] Comment:REFERENCE RANGE NOT ESTABLISHED GFR ESTIMATE 49(L) >89 ML/MIN/1. 73 M2 07/15/2023 5:[address] [facility] GFR NOTES GFR REFERENCE S: 07/15/2023 5:[address] [facility] Comment: THE ESTIMATED [...] ml/min/1.73 m2 G5,KIDNEY FAILURE: <15 ml/min/1.73 m2 07/15/2023 4:57 AM [employer] Ana Moran NP LABORATORY Final Result [facility] [address] [place] [address], * (ABNORMAL) CBC W/DIFF AUTOMATED (07/15/2023 4:57 AM [employer]) WBC 12.57(H) 4.00 - 10.80 x10'3/uL 07/15/2023 5:[address] [facility] RBC 3.85(L) 4.50 - 6.10 x10'6/uL 07/15/2023 5:[address] [facility] HGB 8.5(L) 13.0 - 18.0 G/DL 07/15/2023 5:[address] [facility] HCT 31.0(L) 37.0 - 52.0 % 07/15/2023 5:[address] [facility] MCV 80.5 78.0 - 100.0 FL 07/15/2023 5:[address] [facility] MCH 22.1(L) 27.0 - 31.0 PG 07/15/2023 5:[address] [facility] MCHC 27.4(L) 33.0 - 36.0 G/DL 07/15/2023 5:[address] [facility] RDW 22.4(H) 11.5 - 14.5 % 07/15/2023 5:[address] [facility] PLT 318 150 - 350 x10'3/uL 07/15/2023 5:[address] [facility] MPV 9.7 7.4 - 10.4 FL 07/15/2023 5:[address] [facility] CBC COMMENT NORMAL REFERENCE RANGE NOT ESTABLISHED FOR THE PROPORTIONAL LEUKOCYTE DIFFERENTIAL. 07/15/2023 5:[address] [facility] NEUTROPHILS % 71.6 % 07/15/2023 5:[address] [facility] LYMPHOCYTES % 11.3 % 07/15/2023 5:[address] [facility] MONOCYTES % 12.5 % 07/15/2023 5:[address] [facility] EOSINOPHILS % 3.3 % 07/15/2023 5:55 AM [employer] BASOPHILS % 0.6 % 07/15/2023 5:[address] [facility] IMMATURE GRANS % 0.7 % 07/15/20 5:[address] [facility] NRBC 0.0 % 07/15/2023 5:[address] [facility] ABS. NEUTROPHILS 9.00(H) 1.60 - 8.30 x10'3/uL 07/15/2023 5:[address] [facility] ABS. LYMPHOCYTES 1.42 0.80 - 4.70 x10'3/uL 07/15/2023 5:[address] [facility] ABS. MONOCYTES 1.57(H) 0.00 - 1.50 x10'3/uL 07/15/2023 5:[address] [facility] ABS. EOSINOPHILS 0.41(H) 0.00 - 0.40 x10'3/uL 07/15/2023 5:[address] [facility] ABS. BASOPHILS 0.08 0.00 - 0.20 x10'3/uL 07/15/2023 5:[address] [facility] ABS. IMMATURE GRANULOCYTES 0.09(H) 0.00 - 0.03 x10'3/uL 07/15/2023 5:[address] [facility] ABS. NUCLEATED RBC'S 0.00 0.00 x10'3/uL 07/15/2023 5:[address] [facility] PLT MORPH. NORMAL 07/15/2023 5:55 AM [employer] RBC MORPHOLOGY 2+ 07/15/2023 5:55 AM [employer] [facility] Comment: POIKILOCYTOSIS 2+ STOMATOCYTES 2+ HYPOCHROMASIA 07/15/2023 4:57 AM [employer] us Ana Moran NP LABORATORY Final Result Performing Organization Address [facility] Co de Phone Number [place] [address] [place] [address], [place] [phone] * (ABNORMAL) PROTIME/INR, VENOUS (07/15/2023 4:57 AM [employer]) PROTIME 20.5(H) 9.4 - 12.5 SEC 07/15/2023 5:23 AM [employer] INR 1.8(H) 0.8 - 1.0 07/15/2023 5:23 AM [employer] 07/15/2023 4:57 AM [employer] us Megan Infante MD LABORATORY Final Result Performing Organization Address [facility] Co de Phone Number [facility], [address] [place] [address], [place] [phone] * (ABNORMAL) POCT glucose (07/14/2023 7:57 PM [employer]) GLUCOSE POC 196(H) 70 - 99 MG/DL 07/14/2023 9:43 PM [employer] Comment:Value Noted, No Miri tment Given 07/14/2023 7:57 PM [employer] us Megan Infante MD POCT ORDERABLES - DEVICE Final R esult Performing Organization Address [facility] Co de Phone Number [facility] [address] [place] [address], [place] [phone] * CT ABD+PEL WO CON (07/14/2023 5:07 PM [employer]) Anatomical Region Laterality Modality Abdomen Computed Tomogra phy 07/14/2023 5:34 PM [employer] Impressions 07/14/2023 6:23 PM [employer] IMPRESSION: 1. No evidence of GI bleed on single phase noncontrast CT. 2. Fecalization of small bowel contents, suggestive of decreased transit time with areas of mild to moderate dilatation of the bowel. No discrete transition point. 3. Sub-6 mm pulmonary nodule in the right lung base, new from the prior examination. Current Fran Society guidelines recommend no routine follow-up for patient's at low risk of lung cancer. Optional CT at 12 months for patient's at high risk. Dictated By: Elida Maher on 07/14/2023 5:34 PM The attending radiologist has reviewed the image(s) and agrees with the content of this report. The attending radiologist has reviewed the image(s) and agrees with the content of this report. Referred By: ANA MORAN Interpreted By: Elida Maher MD, 07/14/2023 5:34 PM Narrative 07/14/2023 6:23 PM [employer] EXAMINATION: CT Abdomen and Pelvis without contrast CLINICAL HISTORY: Belly pain, GI bleed COMPARISON: 02/06/2023 CT chest, abdomen, and pelvis TECHNIQUE: Computed tomography of the abdomen and pelvis was obtained without the administration of intravenous contrast according to routine protocol. A dose lowering technique was used for this procedure, which may include, but is not limited to, dose reduction technique, automated exposure control, the use of iterative reconstruction, and ALARA (As Low As Reasonably Achievable) / Image Gently techniques. FINDINGS: VISUALIZED PORTIONS OF THE CHEST: No pleural effusion. Heart is stably enlarged. There is a sub-6 mm pulmonary nodule in the right lung base (series 3 image 16). Not definitively seen on prior examination. HEPATOBILIARY: The liver is normal in contour and size. Cholelithiasis again seen. No evidence of intra or extrahepatic biliary ductal dilatation. No evidence of peripancreatic stranding or fluid collection. GENITOURINARY: Stable right adrenal adenoma. ??No pyelocaliectasis. ??No nephrolithiasis. There are stable bilateral renal cysts. No specific imaging follow-up is recommended. Moderate bilateral renal atrophy. ??The urinary bladder is within normal limits. ??Mild prostatomegaly. No free pelvic fluid. ?? GASTROINTESTINAL: No evidence of GI bleed. There are numerous small bowel fluid fluid levels. There is proximal small bowel dilatation up to 3.5 cm. Fecalization of small bowel content is noted. Focal sigmoid bowel dilation up to 7 cm, similar to 12/28/2022 CT abdomen and pelvis. No evidence of volvulus or obstruction. The appendix is not visualized. Steatorrhea is noted. Decreased ascites when compared to prior examination. No intraperitoneal free air. LYMPHATICS: The spleen is normal in size. 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 No mesenteric or inguinal lymphadenopathy. VASCULAR: The aorta is normal in size. ??There is atherosclerosis involving the aorta and its branching vessels. MUSCULOSKELETAL: No acute osseous abnormality or destructive bone lesion is identified. Stable degenerative changes of the spine. Left hip arthroplasty with surrounding heterotopic ossification. Procedure Note Regulo Campo MD - 07/14/2023 EXAMINATION: CT Abdomen and Pelvis without contrast CLINICAL HISTORY: Belly pain, GI bleed COMPARISON: 02/06/2023 CT chest, abdomen, and pelvis TECHNIQUE: Computed tomography of the abdomen and pelvis was obtainedwithout the administration of intravenous contrast according to routineprotocol. A dose lowering technique was used for this procedure, which mayinclude, but is not limited to, dose reduction technique, automatedexposure control, the use of iterative reconstruction, and ALARA (As LowAs Reasonably Achievable) / Image Gently techniques. FINDINGS: VISUALIZED PORTIONS OF THE CHEST: No pleural effusion. Heart is stably enlarged. There is a sub-6 mmpulmonary nodule in the right lung base (series 3 image 16). Notdefinitively seen on prior examination. HEPATOBILIARY: The liver is normal in contour and size. Cholelithiasisagain seen. No evidence of intra or extrahepatic biliary ductaldilatation. No evidence of peripancreatic stranding or fluid collection. GENITOURINARY: Stable right adrenal adenoma. No pyelocaliectasis. Nonephrolithiasis. There are stable bilateral renal cysts. No specificimaging follow-up is recommended. Moderate bilateral renal atrophy. Theurinary bladder is within normal limits. Mild prostatomegaly. No freepelvic fluid. GASTROINTESTINAL: No evidence of GI bleed. There are numerous small bowelfluid fluid levels. There is proximal small bowel dilatation up to 3.5 cm.Fecalization of small bowel content is noted. Focal sigmoid bowel dilationup to 7 cm, similar to 12/28/2022 CT abdomen and pelvis. No evidence ofvolvulus or obstruction. The appendix is not visualized. Steatorrhea isnoted. Decreased ascites when compared to prior examination. Nointraperitoneal free air. LYMPHATICS: The spleen is normal in size. Stable mildly enlargedretroperitoneal lymph nodes anomaly along the external iliac chain. Nomesenteric or inguinal lymphadenopathy. VASCULAR: The aorta is normal in size. There is atherosclerosis involvingthe aorta and its branching vessels. MUSCULOSKELETAL: No acute osseous abnormality or destructive bone lesionis identified. Stable degenerative changes of the spine. Left hiparthroplasty with surrounding heterotopic ossification. IMPRESSION: 1. No evidence of GI bleed on single phase noncontrast CT. 2. Fecalization of small bowel contents, suggestive of decreased transittime with areas of mild to moderate dilatation of the bowel. No discretetransition point. 3. Sub-6 mm pulmonary nodule in the right lung base, new from the priorexamination. Current Fran Society guidelines recommend no routinefollow-up for patient's at low risk of lung cancer. Optional CT at 12months for patient's at high risk. Dictated By: Elida Maher on 07/14/2023 5:34 PM The attending radiologist has reviewed the image(s) and agrees with thecontent of this report. The attending radiologist has reviewed the image(s) and agrees with thecontent of this report. Referred By: ANA MORAN Interpreted By: Elida Maher MD, 07/14/2023 5:34 PM us Ana Moran [employer] CT Final Result * (ABNORMAL) POCT glucose (07/14/2023 4:29 PM [employer]) GLUCOSE POC 242(H) 70 - 99 MG/DL 07/14/2023 4:34 PM [employer] 07/14/2023 4:29 PM [employer] us Megan Infante MD POCT ORDERABLES - DEVICE Final R esult [facility] [address] [place] [address], * USV STELLA LTD ELZA (07/14/2023 2:27 PM [employer]) Anatomical Region Laterality Modality Extremity Ultrasound 07/15/2023 2:49 AM [employer] Impressions 07/15/2023 2:53 AM [employer] IMPRESSION: UNOBTAINABLE BILATERAL ANKLE BRACHIAL INDICES ON ACCOUNT OF SEVERE VESSEL STIFFNESS AND HARDENING. ??DIGITAL BRACHIAL INDICES ARE NORMAL. ??THE DOPPLER WAVEFORMS ARE ALSO NORMAL AND TRIPHASIC. Referred By: ?? Interpreted By: Piyush Zhang MD, 07/15/2023 2:49 AM Narrative 07/15/2023 2:53 AM [employer] EXAM: USV STELLA L[employer] ELZA INDICATION: Lower extremity ulcers. ??Bilateral claudication and rest pain. ??Patient has diabetes and hyperlipidemia with prior smoking history. TECHNIQUE: Bilateral ankle brachial and first digital brachial indices were obtained with patient rest. ??Arterial waveform morphologies were also obtained. COMPARISON EXAM: None FINDINGS: Brachial pressures were 142 mmHg on the right and 149 mmHg on the left. ??The dorsalis pedis and posterior tibialis pressures were unobtainable with no occlusion up to 240 mmHg bilaterally. ??This would indicate severe vessel stiffness from arteriosclerotic disease. ??The waveform morphologies are triphasic bilaterally. ??The digital brachial pressures and indices are 109 mmHg and 0.73 on the right, and 93 mmHg and 0.62 on the left. Procedure Note Piyush Zhang MD - 07/15/2023 EXAM: USV STELLA LTD ELZA INDICATION: Lower extremity ulcers. Bilateral claudication and rest pain.Patient has diabetes and hyperlipidemia with prior smoking history. TECHNIQUE: Bilateral ankle brachial and first digital brachial indiceswere obtained with patient rest. Arterial waveform morphologies were alsoobtained. COMPARISON EXAM: None FINDINGS: Brachial pressures were 142 mmHg on the right and 149 mmHg onthe left. The dorsalis pedis and posterior tibialis pressures wereunobtainable with no occlusion up to 240 mmHg bilaterally. This wouldindicate severe vessel stiffness from arteriosclerotic disease. Thewaveform morphologies are triphasic bilaterally. The digital brachialpressures and indices are 109 mmHg and 0.73 on the right, and 93 mmHg and0.62 on the left. IMPRESSION: UNOBTAINABLE BILATERAL ANKLE BRACHIAL INDICES ON ACCOUNT OFSEVERE VESSEL STIFFNESS AND HARDENING. DIGITAL BRACHIAL INDICES ARENORMAL. THE DOPPLER WAVEFORMS ARE ALSO NORMAL AND TRIPHASIC. Referred By: Interpreted By: Piyush Zhang MD, 07/15/2023 2:49 AM us Ana Moran [facility] Final Result * (ABNORMAL) POCT glucose (07/14/2023 11:05 AM [employer]EE) GLUCOSE POC 171(H) 70 - 99 MG/DL 07/14/2023 11:07 AM [employer] 07/14/2023 11:0 5 AM [employer] Megan Infante MD POCT ORDERABLES - DEVICE Final R esult Performing Organization Address City/[facility]/ZIP Co de Phone Number [facility], [id number] [place] [address], * (ABNORMAL) OCCULT BLOOD, FECES (07/14/2023 9:55 AM H[employer] TRA[employer]EE) OCCULT BLOOD FECAL POSITIVE(A ) NEGATIVE 07/14/2023 10:14 AM [employer] Comment:2+ STOOL SPECIMEN / Unknown 07/14/2023 9:55 AM [employer]EE Reema Green MD BODY FLUIDS AND STOOLS ORDERA BLES Final Result [facility] [address] [place] [address], * (ABNORMAL) POCT glucose (07/14/2023 6:04 AM [employer]EE) GLUCOSE POC 154(H) 70 - 99 MG/DL 07/14/2023 6:[address] [facility] 07/14/2023 6:04 AM [employer] Megan Infante MD POCT ORDERABLES - DEVICE Final R esult [facility], [id number] [place] [address], * (ABNORMAL) COMPREHENSIVE METABOLIC PANEL (07/14/2023 5:08 AM [employer]) SODIUM S/P/B 135(L) 136 - 145 MMOL/L 07/14/2023 5:[address] [facility] POTASSIUM S/P/B 4.8 3.5 - 5.1 MMOL/L 07/14/2023 5:[address] [facility] CHLORIDE S/P/B 102 98 - 107 MMOL/L 07/14/2023 5:[address] [facility] CO2 26.4 21.0 - 32.0 MMOL/L 07/14/2023 5:[address] [facility] GLUCOSE 164(H) 70 - 99 MG/DL 07/14/2023 5:[address] [facility] Comment: FASTING GLUCOSE 100 TO 125 MG/DL IS CONSISTENT WITH IMPAIRED FASTING GLUCOSE. FASTING GLUCOSE >125 MG/DL IS CONSISTENT WITH DIABETES. RANDOM GLUCOSE >200 MG/DL WITH HYPERGLYCEMIC SYMPTOMS IS CONSISTENT WITH DIABETES. PER ADA GUIDELINES BUN 18 6 - 24 MG/DL 07/14/2023 5:[address] [facility] CREATININE S/P/B 1.33(H) 0.70 - 1.30 MG/DL 07/14/2023 5:[address] [facility] CALCIUM S/P/B 9.0 8.4 - 10.5 MG/DL 07/14/2023 5:[address] [facility] BILIRUBIN TOTAL S/P/B 0.8 0.2 - 1.0 MG/DL 07/14/2023 5:[address] [facility] Comment: THIS ASSAY IS NOT RECOMMENDED FOR PATIENTS UNDERGOING TREATMENT WITH ELTROMBOPAG DUE TO THE POTENTIAL FOR FALSELY ELEVATED RESULTS. ALKALINE PHOSPHATASE S/P/B 155(H) 45 - 115 U/L 07/14/2023 5:[address] [facility] AST 21 15 - 37 U/L 07/14/2023 5:[address] [facility] ALT 22 16 - 63 U/L 07/14/2023 5:[address] [facility] TOTAL PROTEIN S/P/B 7.6 6.4 - 8.2 G/DL 07/14/2023 5:[address] [facility] ALBUMIN S/P/B 2.8(L) 3.4 - 5.0 G/DL 07/14/2023 5:[address] [facility] ANION GAP 6.6 5.0 - 15.0 MMOL/L 07/14/2023 5:[address] [facility] OSMOLALITY (CALC) 286 MOSM/KG 023 5:[address] [facility] Comment:REFERENCE RANGE NOT ESTABLISHED GFR ESTIMATE 58(L) >89 ML/MIN/1. 73 M2 07/14/2023 5:[address] [facility] GFR NOTES GFR REFERENCE S: 07/14/2023 5:[address] [facility] Comment: THE ESTIMATED [...] ml/min/1.73 m2 G5,KIDNEY FAILURE: <15 ml/min/1.73 m2 07/14/2023 5:08 AM [employer]EE Ana Philly Moran NP LABORATORY Final Result [facility] [address] [place] [address], * (ABNORMAL) CBC W/DIFF AUTOMATED (07/14/2023 5:08 AM [employer]EE) WBC 12.66(H) 4.00 - 10.80 x10'3/uL 07/14/2023 5:[address] [facility] RBC 3.68(L) 4.50 - 6.10 x10'6/uL 07/14/2023 5:[address] [facility] HGB 8.0(L) 13.0 - 18.0 G/DL 07/14/2023 5:[address] [facility] HCT 29.4(L) 37.0 - 52.0 % 07/14/2023 5:[address] [facility] MCV 79.9 78.0 - 100.0 FL 07/14/2023 5:[address] [facility] MCH 21.7(L) 27.0 - 31.0 PG 07/14/2023 5:[address] [facility] MCHC 27.2(L) 33.0 - 36.0 G/DL 07/14/2023 5:[address] [facility] RDW 21.7(H) 11.5 - 14.5 % 07/14/2023 5:[address] [facility] PLT 311 150 - 350 x10'3/uL 07/14/2023 5:[address] [facility] MPV 9.9 7.4 - 10.4 FL 07/14/2023 5:[address] [facility] CBC COMMENT NORMAL REFERENCE RANGE NOT ESTABLISHED FOR THE PROPORTIONAL LEUKOCYTE DIFFERENTIAL. 07/14/2023 5:40 AM [employer] [facility] 07/14/2023 5:08 AM [employer]EE us Ana Moran NP LABORATORY Final Result Performing Organization Address [facility]/ZIP Co de Phone Number [facility] [address] [place] [address], [place] [phone] * (ABNORMAL) PROTIME/INR, VENOUS (07/14/2023 5:08 AM [employer]) PROTIME 19.8(H) 9.4 - 12.5 SEC 07/14/2023 5:28 AM [employer] [facility] INR 1.7(H) 0.8 - 1.0 07/14/2023 5:28 AM [employer] [facility] 07/14/2023 5:08 AM [employer] us Megan Infante MD LABORATORY Final Result Performing Organization Address [facility]/ZIP Co de Phone Number [facility] [address] [place] [address], [place] [phone] * (ABNORMAL) POCT glucose (07/13/2023 9:34 PM [employer] TRA[employer]EE) GLUCOSE POC 182(H) 70 - 99 MG/DL 07/13/2023 10:13 PM [employer] [facility] 07/13/2023 9:34 PM [employer] us Megan Infante MD POCT ORDERABLES - DEVICE Final R esult Performing Organization Address [facility] Co de Phone Number [facility] [address] [place] [address], [place] [phone] * (ABNORMAL) POCT glucose (07/13/2023 3:55 PM [employer]) GLUCOSE POC 258(H) 70 - 99 MG/DL 07/13/2023 4:45 PM [employer] [facility] 07/13/2023 3:55 PM [employer] us Megan Infante MD POCT ORDERABLES - DEVICE Final R esult Performing Organization Address City/[facility] Co de Phone Number [facility] [address] [place], [place] [id number], [place] [phone] * (ABNORMAL) HEMOGLOBIN AND HEMATOCRIT (07/13/2023 3:10 PM [employer]) HGB 8.0(L) 13.0 - 18.0 G/DL 07/13/2023 3:34 PM [employer] HCT 28.9(L) 37.0 - 52.0 % 07/13/2023 3:34 PM [employer] [facility] 07/13/2023 3:10 PM [employer]EE us Megan Infante MD LABORATORY Final Result Performing Organization Address [facility] Co de Phone Number [facility] [address] [place] [address], [place] [phone] * TRANSFUSE RED BLOOD CELLS (07/13/2023 1:18 PM [employer]) us Reema Green MD NURSING TREATMENT ORDERABLES - BLOOD ADMIN Final Result * TRANSFUSE RED BLOOD CELLS, 1 Units (07/13/2023 1:18 PM [employer] TRA[employer]EE) us Reema Green MD NURSING TREATMENT ORDERABLES - BLOOD ADMIN Final Result * (ABNORMAL) POCT glucose (07/13/2023 11:39 AM [employer]OURCES TRA[employer]EE) GLUCOSE POC 273(H) 70 - 99 MG/DL 07/13/2023 4:45 PM [employer] [facility] 07/13/2023 11:3 9 AM [employer] TRA[employer]EE us Megan Infante MD POCT ORDERABLES - DEVICE Final R esult Performing Organization Address City/[facility] Co de Phone Number [facility] [address] [place], [place] [id number], [place] [phone] * (ABNORMAL) POCT glucose (07/13/2023 5:49 AM H[employer]OURCES TRAINEE) GLUCOSE POC 173(H) 70 - 99 MG/DL 07/13/2023 5:54 AM [employer] [facility] Comment:Value Noted, No Miri tment Given 07/13/2023 5:49 AM [employer] TRA[employer]EE Megan Infante MD POCT ORDERABLES - DEVICE Final R esult [facility] [address] [place] [address], * (ABNORMAL) PROTIME/INR, VENOUS (07/13/2023 5:08 AM [employer]EE) PROTIME 27.8(H) 9.4 - 12.5 SEC 07/13/2023 6:03 AM [employer] [facility] INR 2.4(H) 0.8 - 1.0 07/13/2023 6:[address] [facility] 07/13/2023 5:08 AM [employer]EE Reema Green MD LABORATORY Final Result [facility] [address] [place] [address], * (ABNORMAL) CBC W/DIFF AUTOMATED (07/13/2023 5:08 AM H[employer] TRA[employer]EE) WBC 14.54(H) 4.00 - 10.80 x10'3/uL 07/13/2023 5:51 AM [employer] [facility] RBC 3.22(L) 4.50 - 6.10 x10'6/uL 07/13/2023 5:[address] [facility] HGB 6.8(LL) 13.0 - 18.0 G/DL 07/13/2023 5:51 AM [employer] [facility] Comment: CALLED TO [facility]MA AT 0545 CRITICAL VALUE HCT 25.1(L) 37.0 - 52.0 % 07/13/2023 5:51 AM [employer] [facility] MCV 78.0 78.0 - 100.0 FL 07/13/2023 5:[address] [facility] MCH 21.1(L) 27.0 - 31.0 PG 07/13/2023 5:[address] [facility] MCHC 27.1(L) 33.0 - 36.0 G/DL 07/13/2023 5:[address] [facility] RDW 22.4(H) 11.5 - 14.5 % 07/13/2023 5:[address] [facility] PLT 338 150 - 350 x10'3/uL 07/13/2023 5:[address] [facility] MPV 9.8 7.4 - 10.4 FL 07/13/2023 5:[address] [facility] CBC COMMENT NORMAL REFERENCE RANGE NOT ESTABLISHED FOR THE PROPORTIONAL LEUKOCYTE DIFFERENTIAL. 07/13/2023 5:[address] [facility] NEUTROPHILS % 70.0 % 07/13/2023 6:[address] [facility] LYMPHOCYTES % 13.8 % 07/13/2023 6:[address] [facility] MONOCYTES % 13.7 % 07/13/2023 6:[address] [facility] EOSINOPHILS % 1.3 % 07/13/2023 6:[address] [facility] BASOPHILS % 0.4 % 07/13/2023 6:[address] [facility] IMMATURE GRANS % 0.8 % 07/13/20 6:[address] [facility] [facility] NRBC 0.4 % 07/13/2023 6:[address] [facility] ABS. NEUTROPHILS 10.18(H) 1.60 - 8.30 x10'3/uL 07/13/2023 6:[address] [facility] ABS. LYMPHOCYTES 2.01 0.80 - 4.70 x10'3/uL 07/13/2023 6:20 AM [facility] ABS. MONOCYTES 1.99(H) 0.00 - 1.50 x10'3/uL 07/13/2023 6:20 AM [employer] ABS. EOSINOPHILS 0.19 0.00 - 0.40 x10'3/uL 07/13/2023 6:[address] [facility] ABS. BASOPHILS 0.06 0.00 - 0.20 x10'3/uL 07/13/2023 6:[address] [facility] ABS. IMMATURE GRANULOCYTES 0.12(H) 0.00 - 0.03 x10'3/uL 07/13/2023 6:[address] [facility] ABS. NUCLEATED RBC'S 0.06(H) 0.00 x10'3/uL 07/13/2023 6:[address] [facility] PLT MORPH. NORMAL 07/13/2023 6:[address] [facility] RBC MORPHOLOGY 3+ 07/13/2023 6:[address] [facility] Comment: ANISOCYTOSIS 2+ MICROCYTES 2+ HYPOCHROMASIA 2+ POIKILOCYTOSIS 1+ TEARDROP CELLS 1+ ELLIPTOCYTES 07/13/2023 5:0 8 AM [employer] Reema Green MD LABORATORY Final Result [facility] [address] [place] [address], * (ABNORMAL) BASIC METABOLIC PANEL (07/13/2023 5:08 AM [employer]) SODIUM S/P/B 133(L) 136 - 145 MMOL/L 07/13/2023 5:[address] [facility] POTASSIUM S/P/B 4.4 3.5 - 5.1 MMOL/L 07/13/2023 5:[address] [facility] CHLORIDE S/P/B 98 98 - 107 MMOL/L 07/13/2023 5:[address] [facility] CO2 26.5 21.0 - 32.0 MMOL/L 07/13/2023 5:[address] [facility] GLUCOSE 158(H) 70 - 99 MG/DL 07/13/2023 5:[address] [facility] Comment: FASTING GLUCOSE 100 TO 125 MG/DL IS CONSISTENT WITH IMPAIRED FASTING GLUCOSE. FASTING GLUCOSE >125 MG/DL IS CONSISTENT WITH DIABETES. RANDOM GLUCOSE >200 MG/DL WITH HYPERGLYCEMIC SYMPTOMS IS CONSISTENT WITH DIABETES. PER ADA GUIDELINES BUN 22 6 - 24 MG/DL 07/13/2023 5:[address] [facility] CREATININE S/P/B 1.35(H) 0.70 - 1.30 MG/DL 07/13/2023 5:[address] [facility] CALCIUM S/P/B 8.8 8.4 - 10.5 MG/DL 07/13/2023 5:[address] [facility] ANION GAP 8.5 5.0 - 15.0 MMOL/L 07/13/2023 5:[address] [facility] OSMOLALITY (CALC) 283 MOSM/KG 023 5:[address] [facility] Comment:REFERENCE RANGE NOT ESTABLISHED GFR ESTIMATE 57(L) >89 ML/MIN/1. 73 M2 07/13/2023 5:[address] [facility] GFR NOTES GFR REFERENCE S: 07/13/2023 5:[address] [facility] Comment: THE ESTIMATED [...] ml/min/1.73 m2 G5,KIDNEY FAILURE: <15 ml/min/1.73 m2 07/13/2023 5:08 AM [employer] us Reema Green MD LABORATORY Final Result [facility] [address] [place] [address], * TYPE & SCREEN (07/12/2023 5:23 PM H[employer] TRA[employer]EE) UNITS ORDERED 1 07/12/2023 6:58 PM [employer] [facility] ABO/RH A POSITIVE 07/12/2023 6:13 PM [employer] ANTIBODY SCREEN POSITIVE 6:13 PM [employer] SAMPLE EXPIRATION 07/15/2023,2359 07/12/2023 6:13 PM [employer] ANTIBODY ID PROBABLE COLD AUTOANTIBODY. TRANSFUSE [facility]HG CROSSMATCH LEAST INCOMPATIBLE RED BLOOD CELLS 08/31/2023 9:02 AM [employer] BLOOD UNIT NUMBER [id number] 07/12/2023 6:32 PM [employer] PRODUCT: PC LEUKOPOOR 07/12/2023 6:32 PM [employer] UNIT DIVISION 00 07/12/2023 6:32 PM [employer] BLOOD UNIT STATUS UNIT RELEASED 07/16/2023 3:46 AM [facility] [facility] TRANSFUSION STATUS OK TO TRANSFUSE 07/12/2023 6:32 PM [employer] CROSSMATCH COMPATIBLE 07/12/2023 6:32 PM [employer] BLOOD UNIT NUMBER [id number] 07/13/2023 4:57 AM [employer] PRODUCT: PC LEUKOPOOR 07/13/2023 4:57 AM [employer] UNIT DIVISION 00 07/13/2023 4:57 AM [employer] BLOOD UNIT STATUS TRANSFUSED,FINAL 07/14/2023 4:37 AM [employer] ISSUE DATE/TIME [id number] 023 4:37 AM [employer] PRODUCT CODE [id number] 07/14/2023 4:37 AM [employer] ABO/RH Unit A POS 07/14/2023 4:37 AM [employer] [facility] ABO/RH UNIT ISBT CODE 6200 07/14/2023 4:37 AM [employer] BLOOD UNIT EXPIRATION DATE [id number] 07/14/2023 4:37 AM [employer] TRANSFUSION STATUS OK TO TRANSFUSE 07/13/2023 4:57 AM [employer] CROSSMATCH COMPATIBLE 07/13/2023 4:57 AM [employer] [facility] 07/12/2023 5:23 PM [employer] Reema Green MD BLOOD BANK TEST ORDERABLES Fi nal Result Performing Organization Address [facility]/ZIP Co de Phone Number [address] [address], * CULTURE, BACTERIA, BLOOD (07/12/2023 4:22 PM [employer] TRA[employer]) SPEC DESCRIPTION BLOOD 07/12/2023 4:27 PM [employer] SPECIAL REQUESTS STERIPATH 07/12/2023 4:27 PM [employer] CULTURE RESULT NO GROWTH 5 DAYS 07/17/2023 12:24 PM [employer] BLOOD SPECIMEN OBTAINED FOR BLOOD CULTURE / Unknown 07/12/2023 4:22 PM [employer] 07/12/2023 4:27 PM [employer] Reema Green MD MICROBIOLOGY - GENERAL ORDERA BLES Final Result Performing Organization Address City/[facility]/ZIP Co de Phone Number [facility] [address] [place] [address], * (ABNORMAL) PROTIME/INR, VENOUS (07/12/2023 4:13 PM [employer]) PROTIME 39.1(H) 9.4 - 12.5 SEC 07/12/2023 4:30 PM [employer] INR 3.3(H) 0.8 - 1.0 07/12/2023 4:30 PM [employer] 07/12/2023 4:13 PM [employer]EE us Reema Green MD LABORATORY Final Result Performing Organization Address City/[facility]/ZIP Co de Phone Number [facility] [address] [place] [address], * CULTURE, BACTERIA, BLOOD (07/12/2023 4:13 PM [employer]) SPEC DESCRIPTION BLOOD 07/12/2023 3:55 PM [employer] SPECIAL REQUESTS NO SPECIAL REQUEST 07/12/2023 3:55 PM [employer] CULTURE RESULT NO GROWTH 5 DAYS 07/17/2023 12:24 PM [employer] BLOOD SPECIMEN OBTAINED FOR BLOOD CULTURE / Unknown 07/12/2023 4:13 PM [employer] 07/12/2023 4:24 PM [employer] us Reema Green MD MICROBIOLOGY - GENERAL ORDERA BLES Final Result Performing Organization Address [facility]/ZIP Co de Phone Number [address] [address], * LACTIC ACID W REFLEX (SEPSIS) (07/12/2023 4:13 PM [employer]) LACTIC ACID VENOUS 1.9 0.4 - 2.0 MMOL/L 07/12/2023 4:47 PM [facility] [facility] 07/12/2023 4:13 PM [employer] TRA[employer]EE us Reema Green MD LABORATORY Final Result Performing Organization Address City/[facility]/ZIP Co de Phone Number [facility] [address] [place] [address], * TROPONIN, QUANT (07/12/2023 4:13 PM [employer]EE) TROPONIN I HIGH SENSITIVITY 45 0 - 76 ng/L 07/12/2023 4:49 PM [employer] 07/12/2023 4:13 PM [employer] us Reema Green MD LABORATORY Final Result [facility] [address] [place] [address], * (ABNORMAL) PRO-BRAIN NATRIURETIC PEPTIDE (07/12/2023 4:13 PM [employer]) PRO-B TYPE NATRIURETIC PEPTIDE 3,565(H) <125 PG/ML 07/12/2023 4:49 PM [employer] Comment: CUT POINTS ESTABLISHED BY INTERNATIONAL [...] OF 89% AND 72% FOR ACUTE CHF. 07/12/2023 4:13 PM [employer] TRA[employer]EE us Reema Green MD LABORATORY Final Result Performing Organization Address City/[facility]/ZIP Co de Phone Number [facility] [address] [place] [phone], * (ABNORMAL) COMPREHENSIVE METABOLIC PANEL (07/12/2023 4:13 PM [employer]) SODIUM S/P/B 132(L) 136 - 145 MMOL/L 07/12/2023 4:49 PM [employer] POTASSIUM S/P/B 4.2 3.5 - 5.1 MMOL/L 07/12/2023 4:49 PM [employer] [facility] CHLORIDE S/P/B 97(L) 98 - 107 MMOL/L 07/12/2023 4:[address] [facility] CO2 25.5 21.0 - 32.0 MMOL/L 07/12/2023 4:[address] [facility] GLUCOSE 132(H) 70 - 99 MG/DL 07/12/2023 4:[address] [facility] Comment: FASTING GLUCOSE 100 TO 125 MG/DL IS CONSISTENT WITH IMPAIRED FASTING GLUCOSE. FASTING GLUCOSE >125 MG/DL IS CONSISTENT WITH DIABETES. RANDOM GLUCOSE >200 MG/DL WITH HYPERGLYCEMIC SYMPTOMS IS CONSISTENT WITH DIABETES. PER ADA GUIDELINES BUN 22 6 - 24 MG/DL 07/12/2023 4:[address] [facility] CREATININE S/P/B 1.43(H) 0.70 - 1.30 MG/DL 07/12/2023 4:[address] [facility] CALCIUM S/P/B 8.8 8.4 - 10.5 MG/DL 07/12/2023 4:[address] [facility] BILIRUBIN TOTAL S/P/B 0.6 0.2 - 1.0 MG/DL 07/12/2023 4:[address] [facility] Comment: THIS ASSAY IS NOT RECOMMENDED FOR PATIENTS UNDERGOING TREATMENT WITH ELTROMBOPAG DUE TO THE POTENTIAL FOR FALSELY ELEVATED RESULTS. ALKALINE PHOSPHATASE S/P/B 182(H) 45 - 115 U/L 07/12/2023 4:[address] [facility] AST 19 15 - 37 U/L 07/12/2023 4:[address] [facility] ALT 22 16 - 63 U/L 07/12/2023 4:[address] [facility] TOTAL PROTEIN S/P/B 8.1 6.4 - 8.2 G/DL 07/12/2023 4:[address] [facility] ALBUMIN S/P/B 3.0(L) 3.4 - 5.0 G/DL 07/12/2023 4:[address] [facility] ANION GAP 9.5 5.0 - 15.0 MMOL/L 07/12/2023 4:[address] [facility] OSMOLALITY (CALC) 279 MOSM/KG 023 4:[address] [facility] Comment:REFERENCE RANGE NOT ESTABLISHED GFR ESTIMATE 53(L) >89 ML/MIN/1. 73 M2 07/12/2023 4:[address] [facility] GFR NOTES GFR REFERENCE S: 07/12/2023 4:[address] [facility] Comment: THE ESTIMATED [...] ml/min/1.73 m2 G5,KIDNEY FAILURE: <15 ml/min/1.73 m2 07/12/2023 4:13 PM [employer] us Reema Green MD LABORATORY Final Result [facility] [address] [place] [address], * (ABNORMAL) CBC W/DIFF AUTOMATED (07/12/2023 4:13 PM [employer]) WBC 13.94(H) 4.00 - 10.80 x10'3/uL 07/12/2023 4:35 PM [employer] RBC 3.40(L) 4.50 - 6.10 x10'6/uL 07/12/2023 4:[address] [facility] HGB 7.3(L) 13.0 - 18.0 G/DL 07/12/2023 4:[address] [facility] HCT 26.5(L) 37.0 - 52.0 % 07/12/2023 4:[address] [facility] MCV 77.9(L) 78.0 - 100.0 FL 07/12/2023 4:35 PM [employer] MCH 21.5(L) 27.0 - 31.0 PG 07/12/2023 4:35 PM [employer] [facility] MCHC 27.5(L) 33.0 - 36.0 G/DL 07/12/2023 4:[address] [facility] RDW 22.5(H) 11.5 - 14.5 % 07/12/2023 4:35 PM [employer] PLT 325 150 - 350 x10'3/uL 07/12/2023 4:[address] [facility] MPV 9.8 7.4 - 10.4 FL 07/12/2023 4:[address] [facility] CBC COMMENT NORMAL REFERENCE RANGE NOT ESTABLISHED FOR THE PROPORTIONAL LEUKOCYTE DIFFERENTIAL. 07/12/2023 4:[address] [facility] NEUTROPHILS % 75.3 % 07/12/2023 5:[address] [facility] LYMPHOCYTES % 11.0 % 07/12/2023 5:[address] [facility] MONOCYTES % 10.7 % 07/12/2023 5:[address] [facility] EOSINOPHILS % 0.9 % 07/12/2023 5:[address] [facility] BASOPHILS % 0.4 % 07/12/2023 5:46 PM [employer] IMMATURE GRANS % 1.7 % 07/12/20 5:46 PM [employer] NRBC 0.4 % 07/12/2023 5:46 PM [employer] [facility] ABS. NEUTROPHILS 10.50(H) 1.60 - 8.30 x10'3/uL 07/12/2023 5:46 PM [employer] [facility] ABS. LYMPHOCYTES 1.53 0.80 - 4.70 x10'3/uL 07/12/2023 5:46 PM [employer] [facility] ABS. MONOCYTES 1.49 0.00 - 1.50 x10'3/uL 07/12/2023 5:46 PM [employer] [facility] ABS. EOSINOPHILS 0.13 0.00 - 0.40 x10'3/uL 07/12/2023 5:46 PM [employer] ABS. BASOPHILS 0.06 0.00 - 0.20 x10'3/uL 07/12/2023 5:46 PM [employer] ABS. IMMATURE GRANULOCYTES 0.24(H) 0.00 - 0.03 x10'3/uL 07/12/2023 5:46 PM [employer] ABS. NUCLEATED RBC'S 0.06(H) 0.00 x10'3/uL 07/12/2023 5:46 PM [employer] PLT MORPH. NORMAL 07/12/2023 5:46 PM [employer] RBC MORPHOLOGY 2+ 07/12/2023 5:46 PM [employer] Comment:HYPOCHROMASIA 07/12/2023 4:13 PM [employer] TRA[employer]EE Reema Green MD LABORATORY Final Result [facility] [address] [place] [address], * XR CHEST PORTABLE (07/12/2023 4:06 PM H[employer]OURCES TRA[employer]EE) Anatomical Region Laterality Modality Chest Radiographic Stephie ging 07/12/2023 4:13 PM [employer] TRA[employer]EE Impressions 07/12/2023 4:17 PM [employer] TRA[employer]EE IMPRESSION: Cardiomegaly with congestive changes as described. No focal infiltrates. Ordered By: REEMA GREEN Interpreted By: Nicko Portillo MD, 07/12/2023 4:13 PM Narrative 07/12/2023 4:17 PM [employer] TRA[employer]EE Examination: Portable chest. Exam time: 1542 hours. Clinical history: Chest pain. Comparison: 02/16/2023. Technique: ??AP ??upright view. Findings: Allowing for differences in projection and rotation, the cardiomediastinal silhouette is stable. The heart remains enlarged. Changes from median sternotomy again evident. There is pulmonary vascular congestion with perivascular haziness and interstitial prominence compatible with interstitial edema. No confluent infiltrates or effusions are identified. The visualized bony thorax is stable. Procedure Note Nicko Portillo MD - 07/12/2023 Examination: Portable chest. Exam time: 1542 hours. Clinical history: Chest pain. Comparison: 02/16/2023. Technique: AP upright view. Findings: Allowing for differences in projection and rotation, thecardiomediastinal silhouette is stable. The heart remains enlarged.Changes from median sternotomy again evident. There is pulmonary vascularcongestion with perivascular haziness and interstitial prominencecompatible with interstitial edema. No confluent infiltrates or effusionsare identified. The visualized bony thorax is stable. IMPRESSION: Cardiomegaly with congestive changes as described. No focal infiltrates. Ordered By: REEMA GREEN Interpreted By: Nicko Portillo MD, 07/12/2023 4:13 PM Reema Green MD GENERAL IMAGING Final Result * ECG 12 lead (07/12/2023 3:37 PM H[employer]OURCES TRAINEE) 07/12/2023 3:37 PM H[employer]OURCES TRA[employer]EE Narrative [facility] - 07/12/2023 3:46 PM HUMAN RESOURCES TRAINEE ? [facility] ?[address] [place], [place] ??[address] ? Test Date: ?2023-07-12 Pat Name: ? OBIE LAY ?Department: ?? 3 ? Room: ? Gender: ? Male ? Tufting Creeler: ?? : ?1955 ? Requested By: REEMA GREEN Order Number: [id number] ? Reading : ?? Easton Rosario ? Measurements Intervals ?[place] ? Rate: ? 102 ?P: ? [place]: ? 0 ?QRS: ?-38 QRSD: ? 134 ?T: ?131 QT: ? 373 ? QTc: ?486 ? Interpretive Statements underlying atrial mechanism unclear - supra ventricular rhythm LEFT AXIS DEVIATION baseline noise N RESOURCES TRAINEE Procedure Note Easton Rosario MD - 07/12/2023 [facility] [address] [place] [address] Test Date: 2023-07-12 Pat Name: OBIE LAY Department: 3 Room: Gender: Male Tufting Creeler: : 1955 Requested By: REEMA GREEN Order Number: [id number] Reading MD: Easton Rosario Measurements Intervals [place] Rate: 102 P: [place]: 0 QRS: -38 QRSD: 134 T: 131 QT: 373 QTc: 486 Interpretive Statements underlying atrial mechanism unclear - supra ventricular rhythm LEFT AXIS DEVIATION baseline noise N RESOURCES TRAINEE us Reema Green MD ECG ORDERABLES Final Result [facility] documented in this encounter Visit Diagnoses Diagnosis CHF exacerbation ([facility])- Primary Congestive heart failure, unspecified CHF exacerbation ([facility]) Congestive heart failure, unspecified Chest pain Chest pain, unspecified Cellulitis of right leg Cellulitis and abscess of leg, except foot Anemia Anemia, unspecified Shortness of breath Chronic combined systolic and diastolic congestive heart failure ([facility]) Chronic combined systolic and diastolic heart failure documented in this encounter Admitting Diagnoses Diagnosis CHF exacerbation ([facility]) Congestive heart failure, unspecified documented in this encounter Administered Medications Inactive Administered Medications - up to 3 most recent administrations Medication Order MAR Action Action Date Dose Rate Site allopurinol (ZYLOPRIM) tablet 300 mg 300 mg, Oral, Daily, First dose on Wed07/12/23 at 2014, Until Discontinued Given 07/16/2023 8:49 AM H[employer] TRA[employer]EE 300 mg Given 07/15/2023 8:55 AM [employer] TRA[employer]EE 300 mg Given 07/14/2023 8:15 AM [employer] TRA[employer]EE 300 mg aspirin chewable tablet 81 mg 81 mg, Oral, Daily, First dose on Wed07/12/23 at 2014, Until Discontinued Given 07/16/2023 8:49 AM H[employer]OURCES TRA[employer]EE 81 mg Given 07/15/2023 8:56 AM H[employer]OURCES TRA[employer]EE 81 mg Given 07/14/2023 8:15 AM H[employer]OURCES TRA[employer]EE 81 mg atorvastatin (LIPITOR) tablet 80 mg 80 mg, Oral, Nightly at bedtime, First dose on Wed07/12/23 at 2100, Until Discontinued Given 07/15/2023 8:21 PM [employer]OURCES TRA[employer]EE 80 mg Given 07/14/2023 9:26 PM [employer]OURCES TRA[employer]EE 80 mg Given 07/13/2023 9:34 PM H[employer]OURCES TRAINEE 80 mg carvedilol (COREG) tablet 3.125 mg 3.125 mg, Oral, 2 times daily, First dose on Wed07/12/23 at 2015, Until Discontinued, Take with meal or snack Given 07/16/2023 8:50 AM H[employer]OURCES TRAINEE 3.125 mg Given 07/15/2023 8:21 PM H[employer]OURCES TRA[employer]EE 3.125 mg Given 07/15/2023 8:56 AM HUM[employer]OURCES TRAINEE 3.125 mg cefTRIAXone (ROCEPHIN) 1 g in sodium chloride 0.9 % 50 mL IVPB 1 g, Intravenous, at 100 mL/hr, Once, 1 dose, On Wed07/12/23 at 1715 New Bag 07/12/2023 5:42 PM H[employer]OURCES TRA[employer]EE 1 g 100 mL/hr cyclobenzaprine (FLEXERIL) tablet 10 mg 10 mg, Oral, 3 times daily PRN, Muscle Spasms, Starting on Wed07/12/23 at 1939, Until Wed07/16/23 at 1332 Given 07/15/2023 10:30 AM H[employer]OURCES TRA[employer]EE 10 mg Given 07/12/2023 9:28 PM [employer]OURCES TRA[employer]EE 10 mg empagliflozin (JARDIANCE) tablet 25 mg 25 mg, Oral, Daily, First dose on Wed07/12/23 at 2000, Until Discontinued Given 07/16/2023 8:49 AM H[employer]OURCES TRAINEE 25 mg Given 07/15/2023 8:56 AM H[employer]OURCES TRAINEE 25 mg Given 07/14/2023 8:16 AM HUM[employer]OURCES TRAINEE 25 mg ferrous sulfate (65 mg elemental) tablet 325 mg 325 mg, Oral, Daily with breakfast, First dose on Wed07/13/23 at 0800, Until Discontinued Given 07/16/2023 8:49 AM HUM[employer]OURCES TRAINEE 325 mg Given 07/15/2023 8:55 AM H[employer]OURCES TRAINEE 325 mg Given 07/14/2023 8:16 AM HUM[employer]OURCES TRAINEE 325 mg folic acid (FOLVITE) tablet 1 mg 1 mg, Oral, Daily, First dose on Wed07/12/23 at 2000, Until Discontinued Given 07/16/2023 8:49 AM HUM[employer]OURCES TRAINEE 1 mg Given 07/15/2023 8:56 AM HUM[employer]OURCES TRAINEE 1 mg Given 07/14/2023 8:15 AM HUM[employer]OURCES TRAINEE 1 mg furosemide (LASIX) tablet 80 mg 80 mg, Oral, Daily, First dose on Wed07/12/23 at 2000, Until Discontinued Given 07/16/2023 8:49 AM HUM[employer]OURCES TRAINEE 80 mg Given 07/15/2023 8:55 AM HUM[employer] RESOURCES TRAINEE 80 mg Given 07/14/2023 8:15 AM HUM[employer]OURCES TRAINEE 80 mg gabapentin (NEURONTIN) capsule 400 mg 400 mg, Oral, 2 times daily, First dose on Wed07/12/23 at 2100, Until Discontinued Given 07/16/2023 8:49 AM HUM[employer]OURCES TRAINEE 400 mg Given 07/15/2023 8:21 PM HUM[employer] RESOURCES TRAINEE 400 mg Given 07/15/2023 8:55 AM HUM[employer] RESOURCES TRAINEE 400 mg glipiZIDE XL (GLUCOTROL XL) 24 hr tablet 5 mg 5 mg, Oral, Daily with breakfast, First dose on Wed07/13/23 at 0800, Until Discontinued, Do not break, chew, or crush. Given 07/16/2023 8:49 AM H[employer] RESOURCES TRAINEE 5 mg Given 07/15/2023 8:56 AM H[employer]OURCES TRAINEE 5 mg Given 07/14/2023 8:16 AM HUM[employer] RESOURCES TRAINEE 5 mg HYDROcodone-acetaminophen (NORCO) 10-325 MG tablet 1 tablet 1 tablet, Oral, Every 6 hours PRN, Moderate pain (Scale 4 - 7), Starting on Wed07/15/23 at 1024, Until Wed07/16/23 at 1332, Maximum dose of acetaminophen is 4000 mg from all sources in 24 hours. Given 07/16/2023 1:13 AM HUMAN RESOURCES TRAINEE 1 tablet Given 07/15/2023 3:07 PM HUM[employer] RESOURCES TRAINEE 1 tablet HYDROcodone-acetaminophen (NORCO) 7.5-325 MG tablet 1 tablet 1 tablet, Oral, 3 times daily PRN, Moderate pain (Scale 4 - 7), Starting on Wed07/12/23 at 1939, Until Wed07/15/23 at 0825, Maximum dose of acetaminophen is 4000 mg from all sources in 24 hours. Given 07/14/2023 1:16 PM HUM[employer] RESOURCES TRAINEE 1 tablet Given 07/14/2023 5:59 AM HUMAN RESOURCES TRAINEE 1 tablet Given 07/13/2023 9:34 PM HUMAN RESOURCES TRAINEE 1 tablet HYDROcodone-acetaminophen (NORCO) 7.5-325 MG tablet 1 tablet 1 tablet, Oral, Every 6 hours PRN, Moderate pain (Scale 4 - 7), Starting on Wed07/15/23 at 0830, Until Wed07/15/23 at 1024, Maximum dose of acetaminophen is 4000 mg from all sources in 24 hours. Given 07/15/2023 8:56 AM HUMAN RESOURCES TRAINEE 1 tablet hydrOXYzine (ATARAX) tablet 50 mg 50 mg, Oral, 3 times daily, First dose on Wed07/12/23 at 2100, Until Discontinued Given 07/16/2023 8:49 AM HUMAN RESOURCES TRAINEE 50 mg Given 07/15/2023 8:21 PM HUMAN RESOURCES TRAINEE 50 mg Given 07/15/2023 3:08 PM HUMAN RESOURCES TRAINEE 50 mg insulin glargine (LANTUS) injection 15 Units 15 Units, Subcutaneous, Nightly at bedtime, First dose on Wed07/13/23 at 2100, Until Discontinued Given 07/15/2023 8:21 PM HUMAN RESOURCES TRAINEE 15 Units Left Upper Abdomen Given 07/14/2023 9:27 PM HUMAN RESOURCES TRAINEE 15 Units Le ft Arm Given 07/13/2023 9:39 PM HUMAN RESOURCES TRAINEE 15 Units Le ft Arm losartan (COZAAR) tablet 25 mg 25 mg, Oral, Daily, First dose on Wed07/12/23 at 2000, Until Discontinued Given 07/16/2023 8:49 AM [employer] 25 mg Given 07/15/2023 8:56 AM [employer] 25 mg Given 07/14/2023 8:16 AM [employer] 25 mg morphine injection 1 mg 1 mg, Intravenous, Every 2 hours PRN, Severe pain (Scale 8 - 10), Starting on Wed07/13/23 at 1003, Until Wed07/15/23 at 0824 Given 07/14/2023 7:58 PM [employer] 1 mg Given 07/14/2023 8:16 AM [employer] 1 mg Given 07/14/2023 4:23 AM [employer] 1 mg oxacillin 1 g in sodium chloride 0.9 % 50 mL IVPB 1 g, Intravenous, at 100 mL/hr, Every 4 hours, First dose (after last modification) on Wed07/13/23 at 1200, Until Discontinued New Bag 07/16/2023 5:10 AM [employer] 1 g 100 mL/hr New Bag 07/16/2023 1:13 AM [employer] 1 g 100 mL/hr New Bag 07/15/2023 9:14 PM [employer] 1 g 100 mL/hr pantoprazole EC (PROTONIX) tablet 40 mg 40 mg, Oral, Daily, First dose on Wed07/13/23 at 0900, Until Discontinued, Do not break, chew, or crush. Given 07/16/2023 8:49 AM [employer] 40 mg Given 07/15/2023 8:56 AM [employer] 40 mg Given 07/14/2023 8:16 AM [employer] 40 mg potassium chloride CR (KLOR-CON M) tablet 20 mEq 20 mEq, Oral, 2 times daily, First dose on Wed07/12/23 at 2100, Until Discontinued, Do not chew, crush, or suck on tablet. May break in half. May dissolve whole tablet in 120 mL of water and drink immediately. Given 07/16/2023 8:49 AM [employer] 20 mEq Given 07/15/2023 8:21 PM [employer] 20 mEq Given 07/15/2023 8:56 AM [employer] 20 mEq rOPINIRole (REQUIP) tablet 4 mg 4 mg, Oral, Nightly at bedtime, First dose on Wed07/12/23 at 2100, Until Discontinued Given 07/15/2023 8:21 PM [employer] 4 m g Given 07/14/2023 9:26 PM [employer] 4 mg Given 07/13/2023 9:34 PM [employer] 4 mg sertraline (ZOLOFT) tablet 50 mg 50 mg, Oral, Daily, First dose on Wed07/13/23 at 0900, Until Discontinued Given 07/16/2023 8:49 AM [employer] 50 mg Given 07/15/2023 8:56 AM [employer] 50 mg Given 07/14/2023 8:15 AM [employer] 50 mg sodium chloride 0.9% infusion at 10 mL/hr, Intravenous, Continuous, Starting on Wed07/12/23 at 1715, Until Wed07/13/23 at 1714, Infuse at TKO rate New Bag 07/13/2023 1:15 PM HUMAN RESOURCES TRAINEE 250 mLs 10 mL/hr New Bag 07/12/2023 6:19 PM HUMAN RESOURCES TRAINEE 250 mLs 10 mL/hr spironolactone (ALDACTONE) tablet 25 mg 25 mg, Oral, Daily, First dose on Wed07/12/23 at 2100, Until Discontinued, HAZARDOUS MEDICATION: wear single chemotherapy approved gloves. Do not open or split. If crushing, use approved closed-system crushing device for hazardous medications. Given 07/16/2023 8:50 AM HUMAN RESOURCES TRAINEE 25 mg Given 07/15/2023 8:55 AM HUMAN RESOURCES TRAINEE 25 mg Given 07/14/2023 8:15 AM HUMAN RESOURCES TRAINEE 25 mg traZODone (DESYREL) tablet 300 mg 300 mg, Oral, Nightly at bedtime, First dose on Wed07/12/23 at 2100, Until Discontinued Given 07/15/2023 8:[address] 300 mg Given 07/14/2023 9:27 PM HUMAN RESOURCES TRAINEE 300 mg Given 07/13/2023 9:34 PM HUMAN RESOURCES TRAINEE 300 mg triamcinolone (KENALOG) 0.1 % cream Topical, 2 times daily, First dose on Wed07/12/23 at 2100, Until Discontinued Given 07/16/2023 8:50 AM HUMAN RESOURCES TRAINEE Given 07/15/2023 8:22 PM HUMAN RESOURCES TRAINEE Given 07/15/2023 8:59 AM HUMAN RESOURCES TRAINEE warfarin (COUMADIN) tablet 5 mg 5 mg, Oral, Daily, First dose on Wed07/13/23 at 0900, Until Discontinued, HAZARDOUS MEDICATION: wear single chemotherapy approved gloves. Do not open or split. If crushing, use approved closed-system crushing device for hazardous medications. Given 07/14/2023 8:16 AM HUMAN RESOURCES TRAINEE 5 mg Given 07/13/2023 8:13 AM HUMAN RESOURCES TRAINEE 5 mg documented in this encounter Active and Recently Administered Medications Times are shown in HUMAN RESOURCES TRAINEE. Scheduled Medication Order 07/14/2023 07/15/2023 07/16/2023 allopurinol (ZYLOPRIM) tablet 300 mg 300 mg, Oral, Daily, First dose on Wed07/12/23 at 2014, Until Discontinued 0815 (Given - Provider: Liliana Gutirerez RN) 0855 (Given - Provider: Risa Padilla, YUNI) 0849 (Given - Provider: Zayra Chávez, YUNI) aspirin chewable tablet 81 mg 81 mg, Oral, Daily, First dose on Wed07/12/23 at 2014, Until Discontinued 0815 (Given - Provider: Liliana Gutierrez RN) 0856 (Given - Provider: Risa Padilla RN) 0849 (Given - Provider: Zayra Chávez, YUNI) atorvastatin (LIPITOR) tablet 80 mg 80 mg, Oral, Nightly at bedtime, First dose on Wed07/12/23 at 2100, Until Discontinued 2125 (Given - Provider: Eleni Mckeon RN) 2020 (Given - Provider: Meredith Munguia RN) carvedilol (COREG) tablet 3.125 mg 3.125 mg, Oral, 2 times daily, First dose on Wed07/12/23 at 2015, Until Discontinued, Take with meal or snack 15 (Given - Provider: Liliana Gutierrez RN)2125 (Given - Provider: Eleni Mckeon RN) 0856 (Given - Provider: Risa Padilla RN)2020 (Given - Provider: Meredith Munguia RN) 0850 (Given - Provider: Zayra Chávez RN) empagliflozin (JARDIANCE) tablet 25 mg 25 mg, Oral, Daily, First dose on Wed07/12/23 at 2000, Until Discontinued 08 (Given - Provider: Liliana Gutierrez RN) 0856 (Given - Provider: Risa Padilla RN) 0849 (Given - Provider: Zayra Chávez RN) ferrous sulfate (65 mg elemental) tablet 325 mg 325 mg, Oral, Daily with breakfast, First dose on Wed07/13/23 at 0800, Until Discontinued 0816 (Given - Provider: Liliana Gutierrez RN) 0855 (Given - Provider: Risa Padilla RN) 0849 (Given - Provider: Zayra Chávez RN) folic acid (FOLVITE) tablet 1 mg 1 mg, Oral, Daily, First dose on Wed07/12/23 at 2000, Until Discontinued 15 (Given - Provider: Liliana Gutierrez RN) 0856 (Given - Provider: Risa Padilla RN) 0849 (Given - Provider: Zayra Chávez RN) furosemide (LASIX) tablet 80 mg 80 mg, Oral, Daily, First dose on Wed07/12/23 at 2000, Until Discontinued 15 (Given - Provider: Liliana Gutierrez RN) 0855 (Given - Provider: Risa Padilla RN) 0849 (Given - Provider: Zayra Chávez RN) gabapentin (NEURONTIN) capsule 400 mg 400 mg, Oral, 2 times daily, First dose on Wed07/12/23 at 2100, Until Discontinued 0815 (Given - Provider: Liliana Gutierrez RN)2125 (Given - Provider: Eleni Mckeon RN) 0855 (Given - Provider: Risa Padilla RN)2020 (Given - Provider: Meredith Munguia RN) 0849 (Given - Provider: Zayra Chávez RN) glipiZIDE XL (GLUCOTROL XL) 24 hr tablet 5 mg 5 mg, Oral, Daily with breakfast, First dose on Wed07/13/23 at 0800, Until Discontinued, Do not break, chew, or crush. 0816 (Given - Provider: Liliana Gutierrez RN) 0856 (Given - Provider: iRsa Padilla RN) 0849 (Given - Provider: Zayra Chávez RN) hydrOXYzine (ATARAX) tablet 50 mg 50 mg, Oral, 3 times daily, First dose on Wed07/12/23 at 2100, Until Discontinued 15 (Given - Provider: Liliana Gutierrez RN)1627 (Given - Provider: Risa Padilla RN)2125 (Given - Provider: Eleni Mckeon RN) 0856 (Given - Provider: Risa Padilla RN)1508 (Given - Provider: Risa Padilla RN)2020 (Given - Provider: Meredith Munguia RN) 0849 (Given - Provider: Zayra Chávez RN) insulin glargine (LANTUS) injection 15 Units 15 Units, Subcutaneous, Nightly at bedtime, First dose on Wed07/13/23 at 2100, Until Discontinued 2126 (Given - Provider: Eleni Mckeon RN) 2020 (Given - Provider: Meredith Munguia RN) losartan (COZAAR) tablet 25 mg 25 mg, Oral, Daily, First dose on Wed07/12/23 at 2000, Until Discontinued 0816 (Given - Provider: Liliana Gutierrez RN) 0856 (Given - Provider: Risa Padilla RN) 0849 (Given - Provider: Zayra Chávez RN) oxacillin 1 g in sodium chloride 0.9 % 50 mL IVPB 1 g, Intravenous, at 100 mL/hr, Every 4 hours, First dose (after last modification) on Wed07/13/23 at 1200, Until Discontinued 0212 (New Bag - Provider: Meredith Munguia RN)0256 (Infusion Stop Time - Provider: Lulu Adhikari RN)0559 (New Bag - Provider: Lulu Adhikari RN)0645 (Infusion Stop Time - Provider: Lulu Adhikari RN)1003 (New Bag - Provider: Liliana Gutierrez RN)1040 (Infusion Stop Time - Provider: Liliana Gutierrez RN)1413 (New Bag - Provider: Liliana Gutierrez RN)1453 (Infusion Stop Time - Provider: Liliana Gutierrez RN)1834 (New Bag - Provider: Risa Padilla RN)1925 (Infusion Stop Time - Provider: Eleni Mckeon RN)2200 (New Bag - Provider: Eleni Mckeon RN)2230 (Infusion Stop Time - Provider: Eleni Mckeon RN) 0153 (New Bag - Provider: Eleni Mckeon RN)0225 (Infusion Stop Time - Provider: Eleni Mckeon RN)0604 (New Bag - Provider: Eleni Mckeon RN)0635 (Infusion Stop Time - Provider: Eleni Mckeon RN)1031 (New Bag - Provider: Risa Padilla RN)1101 (Infusion Stop Time - Provider: Risa Padilla RN)1507 (New Bag - Provider: Risa Padilla, YUNI)1537 (Infusion Stop Time - Provider: Risa Padilla RN)1759 (New Bag - Provider: Risa Padilla RN)1829 (Infusion Stop Time - Provider: Risa Padilla RN)2114 (New Bag - Provider: Meredith Munguia RN)2153 (Infusion Stop Time - Provider: Meredith Munguia RN) 0113 (New Bag - Provider: Meredith Munguia RN)0143 (Infusion Stop Time - Provider: Meredith Munguia RN)0510 (New Bag - Provider: Meredith Munguia RN)0542 (Infusion Stop Time - Provider: Meredith Munguia RN)1022 (Not Given - Provider: Zayra Chávez RN - Reason: Other - Comment: patient discharged) pantoprazole EC (PROTONIX) tablet 40 mg 40 mg, Oral, Daily, First dose on Wed07/13/23 at 0900, Until Discontinued, Do not break, chew, or crush. 0816 (Given - Provider: Liliana Gutierrez RN) 0856 (Given - Provider: Risa Padilla RN) 0849 (Given - Provider: Zayra Chávez RN) potassium chloride CR (KLOR-CON M) tablet 20 mEq 20 mEq, Oral, 2 times daily, First dose on Wed07/12/23 at 2100, Until Discontinued, Do not chew, crush, or suck on tablet. May break in half. May dissolve whole tablet in 120 mL of water and drink immediately. 0816 (Given - Provider: Liliana Gutierrez RN)2125 (Given - Provider: Eleni Mckeon RN) 0856 (Given - Provider: Risa Padilla RN)2020 (Given - Provider: Meredith Munguia RN) 0849 (Given - Provider: Zayra Chávez RN) rOPINIRole (REQUIP) tablet 4 mg 4 mg, Oral, Nightly at bedtime, First dose on Wed07/12/23 at 2100, Until Discontinued 2125 (Given - Provider: Eleni Mckeon RN) 2020 (Given - Provider: Meredith Munguia, YUNI) sertraline (ZOLOFT) tablet 50 mg 50 mg, Oral, Daily, First dose on Wed07/13/23 at 0900, Until Discontinued 15 (Given - Provider: Liliana Gutierrez RN) 0856 (Given - Provider: Risa Padilla RN) 0849 (Given - Provider: Zayra Chávez RN) spironolactone (ALDACTONE) tablet 25 mg 25 mg, Oral, Daily, First dose on Wed07/12/23 at 2100, Until Discontinued, HAZARDOUS MEDICATION: wear single chemotherapy approved gloves. Do not open or split. If crushing, use approved closed-system crushing device for hazardous medications. 0815 (Given - Provider: Liliana Gutierrez RN) 0855 (Given - Provider: Risa Padilla, YUNI) 0850 (Given - Provider: Zayra Chávez RN) traZODone (DESYREL) tablet 300 mg 300 mg, Oral, Nightly at bedtime, First dose on Wed07/12/23 at 2100, Until Discontinued 2126 (Given - Provider: Eleni Mckeon RN) 2020 (Given - Provider: Meredith Munguia RN) triamcinolone (KENALOG) 0.1 % cream Topical, 2 times daily, First dose on Wed07/12/23 at 2100, Until Discontinued 1003 (Given - Provider: Liliana Gutierrez RN)2131 (Given - Provider: Eleni Mckeon RN) 0859 (Given - Provider: Risa Padilla, YUNI)2021 (Given - Provider: Meredith Munguia RN - Comment: groin) 0850 (Given - Provider: Zayra Chávez RN) warfarin (COUMADIN) tablet 5 mg (CANCELED) 5 mg, Oral, Daily, First dose on Wed07/13/23 at 0900, Until Discontinued, HAZARDOUS MEDICATION: wear single chemotherapy approved gloves. Do not open or split. If crushing, use approved closed-system crushing device for hazardous medications. 0816 (Given - Provider: Liliana Gutierrez RN) PRN Medication Order 07/14/2023 07/15/2023 07/16/2023 albuterol sulfate HFA 108 (90 Base) MCG/ACT inhaler 2 puff 2 puff, Inhalation, Every 4 hours PRN, Shortness of breath, Starting on Wed07/12/23 at 1939, Until Wed07/16/23 at 1332 cyclobenzaprine (FLEXERIL) tablet 10 mg 10 mg, Oral, 3 times daily PRN, Muscle Spasms, Starting on Wed07/12/23 at 1939, Until Wed07/16/23 at 1332 1030 (Given - Provider: Risa Padilla, YUNI) docusate sodium (COLACE) capsule 100 mg 100 mg, Oral, PRN, Constipation, Starting on Wed07/12/23 at 1939, Until Wed07/16/23 at 1332 HYDROcodone-acetaminophe n (NORCO) 10-325 MG tablet 1 tablet 1 tablet, Oral, Every 6 hours PRN, Moderate pain (Scale 4 - 7), Starting on Wed07/15/23 at 1024, Until Wed07/16/23 at 1332, Maximum dose of acetaminophen is 4000 mg from all sources in 24 hours. 1507 (Given - Provider: Risa Padilla RN) 0113 (Given - Provider: Meredith Munguia RN) HYDROcodone-acetaminophe n (NORCO) 7.5-325 MG tablet 1 tablet (CANCELED) 1 tablet, Oral, 3 times daily PRN, Moderate pain (Scale 4 - 7), Starting on Wed07/12/23 at 1939, Until Wed07/15/23 at 0825, Maximum dose of acetaminophen is 4000 mg from all sources in 24 hours. 0559 (Given - Provider: Lulu Adhikari RN)1316 (Given - Provider: Liliana Gutierrez RN) HYDROcodone-acetaminophe n (NORCO) 7.5-325 MG tablet 1 tablet (CANCELED) 1 tablet, Oral, Every 6 hours PRN, Moderate pain (Scale 4 - 7), Starting on Wed07/15/23 at 0830, Until Wed07/15/23 at 1024, Maximum dose of acetaminophen is 4000 mg from all sources in 24 hours. 0856 (Given - Provider: Risa Padilla RN) morphine injection 1 mg (CANCELED) 1 mg, Intravenous, Every 2 hours PRN, Severe pain (Scale 8 - 10), Starting on Wed07/13/23 at 1003, Until Wed07/15/23 at 0824 0423 (Given - Provider: Lulu Adhikari RN)0816 (Given - Provider: Liliana Gutierrez RN)1958 (Given - Provider: Eleni F Mckeon, RN) tiZANidine (ZANAFLEX) tablet 4 mg 4 mg, Oral, 3 times daily PRN, Muscle Spasms, Starting on 07/12/23 at 1939, Until Wed07/16/23 at 1332 documented in this encounter Additional Health Concerns Assessment Noted Time PHQ-9 Depression Total Score: 0 12/02/19 22 1:18 PM CDT documented as of this encounter Care Teams Sedimentationist Relationship Specialty Start Date End Date Megan Infante MD [address] [place] [phone] PCP - General FAMILY PRACTICE 04/06/16 Piyush Pandey MD [place] [facility] Hand CARDIOVASCULAR DISEASE 04/06/16 12/28/23 Sharmila Davis APRN, SUPERVISOR BURLING AND JOINING-C [address] [place] [phone] NURSE PRACTITIONER 01/04/17 04/03/24 Zaki Ortiz MD [address] [place] [phone] Consulting Physician PULMONARY DISEASE 07/12/19 Concetta Acevedo MD [address] [place] [address] [phone] Surgeon NEUROLOGICAL SURGERY 12/16/22 Jeff Grace MD [address] [place] [address] Consulting Physician INTERNAL MEDICINE 02/11/23 documented as of this encounter
--- OUTSIDE RECORDS SUMMARY | 2024-09-03 19:09 | XMS_ITS | Encounter Summary ---
Author Organization [facility] Address [facility] [place] [address] [place] [address] Care Team Providers Care Credit And Loan Collections Supervisor Name Role Phone Piyush Pandey MD Unavailable Unavailabl e Megan Infante MD Primary Care Provider [phone] Sharmila Davis APRN, NP-C Unavailable [phone] Zaki Ortiz MD Unavailable [phone] Concetta Acevedo MD Unavailable + [phone] Jeff Grace MD Unavailable Reason for Visit * Reason Onset Date Comments Follow Up Call 07/19/2023 SFL 07/12/23- Encounter Details Date Type Department Care Team (Latest Contact Info) Description 07/19/2023 Hospital Follow-up Call [facility] Care Management [address] [place] [address] [place] [address] Maria De Jesus Gonzáles Follow Up Call (SFL 07/12/23-07/16/23) Social History Tobacco Use Types Packs/Day Years Used Date Smoking Tobacco: Former Smokeless Tobacco: Former Chew Alcohol Use Standard Drinks/Week Comments Yes 0 (1 standard drink = 0.6 oz pur e alcohol) 6 beers per week [facility] Utilities Answer Date Recorded In the [...] declined 02/16/2023 How often do you attend caodaism or sabianist serv ices? Patient declined 02/16/2023 Do you belong to any clubs o r organizations such as caodaism groups, unions, fraternal or athletic groups, or [...] 3-9 0 12/01/2021 [facility] - Occupational Stress Questionnaire [...] place to sleep or slept in a penitentiary (including now)? Patient declined 07/12/2023 Sex and [...] st Contact Info) Description 09/25/2024 2:00 PM OFFAL ROLLER Appointment [facility] [address] [place] [address] Zayra Powell, ELECTRICAL CONSTRUCTION PROJECT MANAGER [address] [place] [address] 10/16/2024 3:30 PM OFFAL ROLLER Office Visit [facility] [id number] [place] [phone] Brit Gonzáles MD [address] [place] [address] documented as of this encounter Goals Goal [...] documented as of this encounter Care Teams Credit And Loan Collections Supervisor Relationship Specialty Start Date End Date Megan Infante MD [address] [place] [address] PCP - General FAMILY PRACTICE 04/06/16 Piyush Pandey MD [place] [employer] Installation And Servicer CARDIOVASCULAR DISEASE 04/06/16 12/28/23 Sharmila Davis APRN, FINANCE ADVISOR-C [address] [phone] NURSE PRACTITIONER 01/04/17 04/03/24 Zaki Ortiz MD [address] [phone] Consulting Physician PULMONARY DISEASE 07/12/19 Concetta Acevedo MD [address] [place] [address] [phone] Surgeon NEUROLOGICAL SURGERY 12/16/22 Jeff Grace MD [address] [place], [place] [address] Consulting Physician INTERNAL MEDICINE 02/11/23 documented as of this encounter
--- OUTSIDE RECORDS SUMMARY | 2024-09-03 19:09 | XMS_ITS | Encounter Summary ---
Author Organization [facility] Address [address] [place] [address]. [place] [address] [place] [address] Care Team Providers Care Investment Banking Analyst Name Role Phone Piyush Pandey MD Unavailable Unavailabl e Megan Infante MD Primary Care Provider [phone] Sharmila Davis APRN, NP-C Unavailable [phone] Linda Block MD Unavailable [phone] Zaki Ortiz MD Unavailable [phone] RomeoConcetta Pond MD Unavailable + [phone] Jeff Grace MD Unavailable Reason for Visit * Reason Onset Date Comments Surgical Clearance 03/23/2023 Neck surgery Encounter Details Date Type Department Care Team (Late st Contact Info) Description 03/23/2023 Telephone [facility] [address] [place] [phone] Piyush Pandey MD Surgical Clearance (Neck surgery) Social History Tobacco Use Types Packs/Day Years Used Date Smoking Tobacco: Former Smokeless Tobacco: Former Chew Alcohol Use Standard Drinks/Week Comments Yes 0 (1 standard drink = 0.6 oz pur e alcohol) 6 beers per week Humiliation, Afraid, Rape, and Kick questionnair e Answer Date Recorded Within the last year, have y ou been afraid of your partner or ex-partner? Patient declined 02/16/2023 Within the last year, have y ou been humiliated or emotionally abused in other ways by your partner or ex-partner? Patient declined 02/16/2023 Within the last year, have y ou been kicked, hit, slapped, or otherwise physically hurt by your partner or ex-partner? Patient declined 02/16/2023 Within the last year, have y ou been raped or forced to have any kind of sexual activity by your partner or ex-partner? Patient declined 02/16/2023 Social Connection and Isolation Panel [NHANES] A nswer Date Recorded In a typical week, how many times do you talk on the phone with family, friends, or neighbors? Patient declined 02/16/2023 How often do you get togethe r with friends or relatives? Patient declined 02/16/2023 How often do you attend scientologist or hoahaoism serv ices? Patient declined 02/16/2023 [...] like food, housing, medical care, and heating? Patient declined 02/16/2023 PHQ-2 Answer Date Recorded PHQ-2 Score - If the patient scores above 3, please move on to questions 3-9 0 12/01/2021 [facility] of Occupat ional Health - Occupational Stress [...] you got the money to buy more. Patient declined Within the past 12 months, t he food you bought just didn't last and you didn't have money to get more. Patient declined PRAPARE - Transportation Answer Date Re corded In the past 12 months, has l ack of transportation kept you from medical appointments or from getting medications? Patient declined 02/16/2023 In the past 12 months, has l ack of transportation kept you from meetings, work, or from getting things needed for daily living? Patient declined 02/16/2023 Housing Stability Vital Sign Answer Stevenson e Recorded In the last 12 months, was t here a time when you were not able to pay the mortgage or rent on time? Patient refused 02/17/20 23 In the last 12 months, how many places have you lived? 1 02/16/2023 In the last 12 months, was t here a time when you did not have a steady place to sleep or slept in a care home (including now)? Patient refused 02/16/2023 Sex and Gender Information Value Date Recorded [...] Answer Date of Assessment Author Status No 02/16/2023 4:01 AM Iva Kenny RN Active * Are you blind or do you have serious difficulty seeing, even when wearing glasses? Answer Date of Assessment Author Status No 02/16/2023 4:01 AM Iva Kenny RN Active * Do you have serious difficulty walking or climbing stairs? Answer Date of Assessment Author Status Yes 02/16/2023 4:08 AM Iva Kenny RN Active * Do you have difficulty dressing or bathing? Answer Date of Assessment Author Status No 02/16/2023 4:08 AM Iva Kenny RN Active * Because of a physical, mental, or emotional condition, do you have difficulty doing errands alone such as visiting a doctor's office or shopping? Answer Date of Assessment Author Status No 02/16/2023 4:08 AM CDT Iva Lepe RN Active documented as of this encounter Mental Status * Because of a physical, mental, or emotional condition, do you have serious difficulty concentrating, remembering, or making decisions? Answer Entry Date Author Status No 02/16/2023 4:08 AM CDT Iva Lepe RN Active documented in this encounter Progress Notes * Marcella Freitas RN - 04/12/2023 8:53 AM CDT Faxed completed clinic note w/ clearance to Dr. Infante office * Marcella Freitas RN - 03/24/2023 12:[address] Pandey to review/complete clinic document * Bethanie Lay - 03/23/2023 11:[address] Infante's office called inquiring if the patient is cleared for neck surgery. Please advise. documented in this encounter Plan of Treatment Upcoming Encounters Date Type Department Care Team (Late st Contact Info) Description 09/25/2024 2:00 PM DISTRICT SALES MANAGER Appointment [facility] [address] [place] [address] Zayra Powell, COAT OPERATOR INSULATOR [address] [place] [address] 10/16/2024 3:30 PM DISTRICT SALES MANAGER Office Visit [facility] [address] [place] [phone] Brit Gonzáles MD [address] [place] [address] documented as of this encounter Goals Goal [...] documented as of this encounter Care Teams Investment Banking Analyst Relationship Specialty Start Date End Date Megan Infante MD [address] [facility] [place] [phone] PCP - General FAMILY PRACTICE 04/06/16 Piyush Pandey MD [place] Customer Service Representative CARDIOVASCULAR DISEASE 04/06/16 12/28/23 Sharmila Davis, FIRMWARE ENGINEER, BINDERY HELPER-C [address] [phone] NURSE PRACTITIONER 01/04/17 04/03/24 Linda Block MD [address] [place] [phone] [place] Customer Service Representative CLINICAL CARDIAC ELECTROPHYSIOLOGY 02/08/17 04/12/23 aZki Ortiz MD [address] [place] [phone] Consulting Physician PULMONARY DISEASE 07/12/19 Concetta Acevedo MD [address] [place] [address] [phone] Surgeon NEUROLOGICAL SURGERY 12/16/22 Jeff Grace MD [address] [place], [place] [phone] Consulting Physician INTERNAL MEDICINE 02/11/23 documented as of this encounter
--- OUTSIDE RECORDS SUMMARY | 2024-09-03 19:09 | XMS_ITS | Encounter Summary ---
Author Organization [facility] Address [facility] [place] [place] [address] [place] [address] Care Team Providers Care Audiovisual Production Specialist Name Role Phone Piyush Pandey MD Unavailable Unavailabl e Meagn Infante MD Primary Care Provider [phone] Sharmila Davis APRN, NP-C Unavailable [phone] Zaki Ortiz MD Unavailable [phone] Concetta Acevedo MD Unavailable + [phone] Jeff Grace MD Unavailable Encounter Details Date Type Department Care Team (Latest Contact Info) Description 07/20/2023 11:11 AM GOURMET COFFEE ATTENDANT - 07/20/2023 11:21 AM [facility] Hospital Encounter [facility] [address] [facility] [place] [address] Danita Oh, PROCESSING TALC AND BORATE SUPERVISOR 1 [place] [address] Discharge Disposition: Home or Self Care (Routine Discharge) Social History Tobacco Use Types Packs/Day Years Used Date Smoking Tobacco: Former Smokeless Tobacco: Former Chew Alcohol Use Standard Drinks/Week Comments Yes 0 (1 standard drink = 0.6 oz pur e alcohol) 6 beers per week [facility] Utilities Answer Date Recorded In the past 12 months has [employer] electric, gas, oil, or water company threatened [...] declined 02/16/2023 How often do you attend spiritism or taoist serv ices? Patient declined 02/16/2023 Do you belong to any clubs o r organizations such as spiritism groups, unions, fraternal or athletic groups, or [...] st Contact Info) Description 09/25/2024 2:00 PM GOURMET COFFEE ATTENDANT Appointment [facility] [address] [place] [address] Zayra Powell, POWER CRANE OPERATOR [address] [place] [address] 10/16/2024 3:30 PM GOURMET COFFEE ATTENDANT Office Visit [facility] [address] [place] [address] Brit Gonzáles MD [address] [place] [address] documented as of this encounter Goals Goal Patient Goal Type Associated Problems Recent Progress Patient-Stated? Author Family - family caregiver with be involved in care transitions and discharge planning Lifestyle No Karen Quezada, RN documented as of this encounter Procedures Procedure Name Priority Date/Time Associated Diagnosis Comments PROTHROMBIN TIME, VENOUS Routine 07/20/2023 11:42 AM GOURMET COFFEE ATTENDANT CHF exacerbation (CMS/HCC HHS/HCC) Cellulitis of right leg COMPREHENSIVE METABOLIC PANEL Routine 07/20/2023 11:42 AM GOURMET COFFEE ATTENDANT CHF exacerbation (CMS/HCC HHS/HCC) Shortness of breath Chronic combined systolic and diastolic congestive heart failure (CMS/HCC HHS/HCC) documented in this encounter Results * (ABNORMAL) COMPREHENSIVE METABOLIC PANEL (07/20/2023 11:42 AM GOURMET COFFEE ATTENDANT) SODIUM S/P/B 135(L) 136 - 145 MMOL/L 07/20/2023 12:04 PM [facility] POTASSIUM S/P/B 4.4 3.5 - 5.1 MMOL/L 07/20/2023 12:04 PM [facility] CHLORIDE S/P/B 97(L) 98 - 107 MMOL/L 07/20/2023 12:04 PM [facility] CO2 29.5 21.0 - 32.0 MMOL/L 07/20/2023 12:04 PM [facility] GLUCOSE 184(H) 70 - 99 MG/DL 07/20/2023 12:04 PM [facility] Comment: FASTING GLUCOSE 100 TO 125 MG/DL IS CONSISTENT WITH IMPAIRED FASTING GLUCOSE. FASTING GLUCOSE >125 MG/DL IS CONSISTENT WITH DIABETES. RANDOM GLUCOSE >200 MG/DL WITH HYPERGLYCEMIC SYMPTOMS IS CONSISTENT WITH DIABETES. PER ADA GUIDELINES BUN 53(H) 6 - 24 MG/DL 07/20/2023 12:04 PM [facility] CREATININE S/P/B 1.67(H) 0.70 - 1.30 MG/DL 07/20/2023 12:04 PM [facility] CALCIUM S/P/B 9.3 8.4 - 10.5 MG/DL 07/20/2023 12:04 PM [facility] BILIRUBIN TOTAL S/P/B 0.6 0.2 - 1.0 MG/DL 07/20/2023 12:04 PM [facility] Comment: THIS ASSAY IS NOT RECOMMENDED FOR PATIENTS UNDERGOING TREATMENT WITH ELTROMBOPAG DUE TO THE POTENTIAL FOR FALSELY ELEVATED RESULTS. ALKALINE PHOSPHATASE S/P/B 134(H) 45 - 115 U/L 07/20/2023 12:04 PM [facility] AST 18 15 - 37 U/L 07/20/2023 12:04 PM [facility] ALT 16 16 - 63 U/L 07/20/2023 12:04 PM [facility] TOTAL PROTEIN S/P/B 8.1 6.4 - 8.2 G/DL 07/20/2023 12:04 PM [facility] ALBUMIN S/P/B 3.1(L) 3.4 - 5.0 G/DL 07/20/2023 12:04 PM [facility] ANION GAP 8.5 5.0 - 15.0 MMOL/L 07/20/2023 12:04 PM [facility] OSMOLALITY (CALC) 299 MOSM/KG 023 12:04 PM [facility] Comment:REFERENCE RANGE NOT ESTABLISHED GFR ESTIMATE 44(L) >89 ML/MIN/1. 73 M2 07/20/2023 12:04 PM [facility] GFR NOTES GFR REFERENCE S: 07/20/2023 12:04 PM [facility] Comment: THE ESTIMATED GFR [...] <15 ml/min/1.73 m2 07/20/2023 11:4 2 AM GOURMET COFFEE ATTENDANT us Danita Oh NP LABORATORY Final Result [facility] [address] [place] [id number], * (ABNORMAL) PROTIME/INR, VENOUS (07/20/2023 11:42 AM GOURMET COFFEE ATTENDANT) PROTIME 13.6(H) 9.4 - 12.5 SEC 07/20/2023 1:07 PM GOURMET COFFEE ATTENDANT [facility] INR 1.2(H) 0.8 - 1.0 07/20/2023 1:07 PM GOURMET COFFEE ATTENDANT [facility] 07/20/2023 11:4 2 AM GOURMET COFFEE ATTENDANT us Danita Oh NP LABORATORY Final Result [facility] [address] [place] [address], documented in this encounter Visit Diagnoses Diagnosis CHF exacerbation ([facility] HHS/HCC) Congestive heart failure, unspecified Cellulitis of right leg Cellulitis and abscess of leg, except foot Shortness of breath Chronic combined systolic and diastolic congestive heart failure (CMS/HCC HHS/HCC) Chronic combined systolic and diastolic heart failure documented in this encounter Additional Health Concerns Assessment Noted Time PHQ-9 Depression Total Score: 0 12/02/19 22 1:18 PM CDT documented as of this encounter Care Teams Audiovisual Production Specialist Relationship Specialty Start Date End Date Megan Infante MD [address] [place] [address] PCP - General FAMILY PRACTICE 04/06/16 Piyush Pandey MD [place] Signal Manager CARDIOVASCULAR DISEASE 04/06/16 12/28/23 Sharmila Davis APRN, PROCESSING TALC AND BORATE SUPERVISOR-C [address] [address] NURSE PRACTITIONER 01/04/17 04/03/24 Zaki Ortiz MD [address] [place] [address] Consulting Physician PULMONARY DISEASE 07/12/19 Concetta Acevedo MD [address] [place] [address] Surgeon NEUROLOGICAL SURGERY 12/16/22 Jeff Grace MD [address] [place] [address] Consulting Physician INTERNAL MEDICINE 02/11/23 documented as of this encounter
--- OUTSIDE RECORDS SUMMARY | 2024-09-03 19:09 | XMS_ITS | Encounter Summary ---
Author Organization [facility] Address [facility] [place] [address] [place] [address] Care Team Providers Care Acquisition Advisor Name Role Phone Piysuh Pandey MD Unavailable Unavailabl e Megan Infante MD Primary Care Provider [phone] Sharmila Davis APRN EMISSIONS TECHNICIAN-C Unavailable [phone] Zaki Ortiz MD Unavailable [phone] Concetta Acevedo MD Unavailable + [phone] Jeff Grace MD Unavailable Encounter Details Date Type Department Care Team (Latest Contact Info) Description 05/31/2023 Travel Social History Tobacco Use Types Packs/Day [...] declined 02/16/2023 How often do you attend jehovah's witness or protestant serv ices? Patient declined 02/16/2023 Do you belong to any clubs o r organizations such as jehovah's witness groups, unions, fraternal or athletic groups, or [...] in a skilled nursing (including now)? Patient refused 02/16/2023 Sex and [...] 02/16/2023 4:08 AM Iva Kenny RN Active documented as of this encounter Mental Status * Because of a physical, mental, or emotional condition, do you have serious difficulty concentrating, remembering, or making decisions? Answer Entry Date Author Status No 02/16/2023 4:08 AM CDT Iva Lepe RN Active documented in this encounter Plan of Treatment Upcoming Encounters Date Type Department Care Team (Late st Contact Info) Description 09/25/2024 2:00 [address] Appoint[address] [facility] [address] [place] [address] Zayra Powell, CRAYON PAINTER [address] [facility] [place] [address] 10/16/2024 3:30 PM CELERY PACKER Office Visit [facility] [facility] [address] [place] [address] Brit Gonzáles MD [address] [place] [address] documented as of this encounter [...] documented as of this encounter Care Teams Acquisition Advisor Relationship Specialty Start Date End Date Megan Infante MD [address] [facility] [place] [address] PCP - General FAMILY PRACTICE 04/06/16 Piyush Pandey MD [place] [employer] Research Technician CARDIOVASCULAR DISEASE 04/06/16 12/28/23 Sharmila Davis APRN, EMISSIONS TECHNICIAN-C [address] [facility] [address] [place] [address] NURSE PRACTITIONER 01/04/17 04/03/24 Zaki Ortiz MD [address] [facility] [address] [place] [address] Consulting Physician PULMONARY DISEASE 07/12/19 Concetta Acevedo MD [address] [place] [address] Surgeon NEUROLOGICAL SURGERY 12/16/22 Jeff Grace MD [address] [place], [place] [address] Consulting Physician INTERNAL MEDICINE 02/11/23 documented as of this encounter
--- OUTSIDE RECORDS SUMMARY | 2024-09-03 19:09 | XMS_ITS | Encounter Summary ---
Author Organization [facility] Address [facility] [facility] [place] [address] [place] [address] Care Team Providers Care Sand Analyst Name Role Phone Piyush Pandey MD Unavailable Unavailabl e Megan Infante MD Primary Care Provider [phone] Sharmila Davis APRN, NP-C Unavailable [phone] Zaki Ortiz MD Unavailable [phone] Concetta Acevedo MD Unavailable + [phone] Jeff Grace MD Unavailable Encounter Details Date Type Department Care Team (Latest Contact Info) Description 07/12/2023 Travel Social History Tobacco Use Types Packs/Day Years Used Date Smoking Tobacco: Former Smokeless Tobacco: Former Chew Alcohol Use Standard Drinks/Week Comments Yes 0 (1 standard drink = 0.6 oz pur e alcohol) 6 beers per week [facility] Utilities Answer Date Recorded In the past 12 months has [employer], gas, oil, or water [employer] threatened to shut off services in your [...] declined 02/16/2023 How often do you attend latter-day or advent serv ices? Patient declined 02/16/2023 Do you belong to any clubs o r organizations such as latter-day groups, unions, fraternal or athletic groups, or [...] move on to questions 3-9 0 12/01/2021 [facility] - Occupational [...] a intermediate (including now)? Patient declined 07/12/2023 Sex and [...] Assessment Author Status Yes 02/16/2023 4:08 AM CDT Iva Lepe RN Active * Do you have difficulty [...] or making decisions? No 07/12/2023 6:58 PM POT OPERATOR Liliana Gutierrez R N Active * Because of a physical, mental, or emotional condition, do you have serious difficulty concentrating, remembering, or making decisions? Answer Entry Date Author Status No 02/16/2023 4:08 AM Iva Kenny RN Active documented in this encounter Plan of Treatment Upcoming Encounters Date Type Department Care Team (Late st Contact Info) Description 09/25/2024 2:00 PM POT OPERATOR Appointment [facility] [address] [place] [address] Zayra Powell, CHARGE MASTER SPECIALIST [address] [place] [address] 10/16/2024 3:30 PM POT OPERATOR Office Visit [facility] [address] [place] [address] Brit Gonzáles MD [address] [place] [address] documented as of this encounter Goals Goal [...] documented as of this encounter Care Teams Sand Analyst Relationship Specialty Start Date End Date Megan Infante MD [address] [place] [address] PCP - General FAMILY PRACTICE 04/06/16 Piyush Pandey MD [place] Solar Technician CARDIOVASCULAR DISEASE 04/06/16 12/28/23 Sharmila Davis, SCHOOL PHOTOGRAPHER, HOSTEL PARENT-C [address] [address] NURSE PRACTITIONER 01/04/17 04/03/24 Zaki Ortiz MD [address] [place] [address] Consulting Physician PULMONARY DISEASE 07/12/19 Concetta Acevedo MD [address] [place] [address] Surgeon NEUROLOGICAL SURGERY 12/16/22 Jeff Grace MD [address] [place], [place] [address] Consulting Physician INTERNAL MEDICINE 02/11/23 documented as of this encounter
--- OUTSIDE RECORDS SUMMARY | 2024-09-03 19:09 | XMS_ITS | Encounter Summary ---
Author Organization [facility] Address [facility]6 [facility] [place] [address] [place] [address] Care Team Providers Care Reel Worker Name Role Phone Piyush Pandey MD Unavailable Unavailabl e Megan Infante MD Primary Care Provider [phone] Sharmila Davis APRN, NP-C Unavailable [phone] Zaki Ortiz MD Unavailable [phone] Concetta Acevedo MD Unavailable + [phone] Jeff Grace MD Unavailable Encounter Details Date Type Department Care Team (Latest Contact Info) Description 07/20/2023 Travel Social History Tobacco Use Types Packs/Day Years Used Date Smoking Tobacco: Former Smokeless Tobacco: Former Chew Alcohol Use Standard Drinks/Week Comments Yes 0 (1 standard drink = 0.6 oz pur e alcohol) 6 beers per week [facility] Utilities Answer Date Recorded In the past 12 months has [employer], gas, oil, or water [employer] threatened to shut off services in your [...] declined 02/16/2023 How often do you attend taoism or alevism serv ices? Patient declined 02/16/2023 Do you belong to any clubs o r organizations such as taoism groups, unions, fraternal or athletic groups, or [...] move on to questions 3-9 0 12/01/2021 [facility] - Occupational [...] place to sleep or slept in a detention (including now)? Patient declined 07/12/2023 Sex and [...] Date Author Status No 07/12/2023 6:58 PM CHEESE WEIGHER Liliana Gutierrez, RN Active documented in this encounter Plan of Treatment Upcoming Encounters Date Type Department Care Team (Late st Contact Info) Description 09/25/2024 2:00 [address] App[address] [facility] [address] [facility] [place] [address] Zayra Powell, HEALTH PLAN SPECIALIST [address] [facility] [place] [address] 10/16/2024 3:30 PM CHEESE WEIGHER Office Visit [facility] [address] [facility] [place] [address] Brit Gonzáles MD [address] [place] [address] documented as of this encounter [...] documented as of this encounter Care Teams Reel Worker Relationship Specialty Start Date End Date Megan Infante MD [address] [place] [address] PCP - General FAMILY PRACTICE 04/06/16 Piyush Pandey MD [place] Fire Official CARDIOVASCULAR DISEASE 04/06/16 12/28/23 Sharmila Davis APRN, MOTION STUDY TECHNICIAN-C [address] [place] [address] [address] [place] [address] NURSE PRACTITIONER 01/04/17 04/03/24 Zaki Ortiz MD [address] [facility] [address] [place] [address] Consulting Physician PULMONARY DISEASE 07/12/19 Concetta Acevedo MD [address] [place] [id number] Surgeon NEUROLOGICAL SURGERY 12/16/22 Jeff Grace MD [address] [place] [address] Consulting Physician INTERNAL MEDICINE 02/11/23 documented as of this encounter
--- OUTSIDE RECORDS SUMMARY | 2024-09-03 19:09 | XMS_ITS | Encounter Summary ---
Author Organization [facility] Address [facility]6 [place] [address] [place] [address] Care Team Providers Care Hop Trainer Name Role Phone Piuysh Pandey MD Unavailable Unavailabl e Megan Infante MD Primary Care Provider [phone] Sharmila Davis APRN, NP-C Unavailable [phone] Zaki Ortiz MD Unavailable [phone] Concetta Acevedo MD Unavailable + [phone] Jeff Grace MD Unavailable Encounter Details Date Type Department Care Team (Latest Contact Info) Description 07/27/2023 Travel Social History Tobacco Use Types Packs/Day Years Used Date Smoking Tobacco: Former Smokeless Tobacco: Former Chew Alcohol Use Standard Drinks/Week Comments Yes 0 (1 standard drink = 0.6 oz pur e alcohol) 6 beers per week [facility] Utilities Answer Date Recorded In the past 12 months has [employer], gas, oil, or water [employer] threatened to shut off services in your [...] How often do you attend faith or druze serv ices? Patient declined 02/16/2023 Do you [...] Author Status No 07/12/2023 6:58 PM PEDIATRIC SOCIAL WORKER Liliana Gutierrez, RN Active documented in this encounter Plan of Treatment Upcoming Encounters Date Type Department Care Team (Late st Contact Info) Description 09/25/2024 2:00 PM PEDIATRIC SOCIAL WORKER Appointment [facility] [address] [address] Zayra Powell, ANTHROPOLOGY INSTRUCTOR [address] [place] [address] 10/16/2024 3:30 PM PEDIATRIC SOCIAL WORKER Office Visit [facility] [address] [place] [address] Brit Gonzáles MD [address] [place] [address] documented as of this encounter [...] documented as of this encounter Care Teams Hop Trainer Relationship Specialty Start Date End Date Megan Infante MD [address] [place] [address] PCP - General FAMILY PRACTICE 04/06/16 Piyush Pandey MD [place] [employer] Director CARDIOVASCULAR DISEASE 04/06/16 12/28/23 Sharmila Davis APRN, TIMING ADJUSTER-C [address] [place] [address] [address] [place] [address] NURSE PRACTITIONER 01/04/17 04/03/24 Zaki Ortiz MD [address] [facility] [address] [place] [address] Consulting Physician PULMONARY DISEASE 07/12/19 Concetta Acevedo MD [address] [place] [address] Surgeon NEUROLOGICAL SURGERY 12/16/22 Jeff Grace MD [address] [place] [address] Consulting Physician INTERNAL MEDICINE 02/11/23 documented as of this encounter
--- OUTSIDE RECORDS SUMMARY | 2024-09-03 19:09 | XMS_ITS | Encounter Summary ---
Author Organization [facility] Address [facility] [facility] [place] [address] [place] [address] Care Team Providers Care Stress Analyst Name Role Phone Piyush Pandey MD Unavailable Unavailabl e Megan Infante MD Primary Care Provider [phone] Sharmila Davis APRN, NP-C Unavailable [phone] Linda Block MD Unavailable [phone] Zaki Ortiz MD Unavailable [phone] Romeo-Concetta Pond MD Unavailable + [phone] Jeff Grace MD Unavailable Encounter Details Date Type Department Care Team (Late st Contact Info) Description 04/05/2023 11:32 AM CDT - 04/05/2023 11:59 PM CDT Hospital Encounter [facility] Pending sale to [facility] [place] [address] Theresa Sheriff PAMraty[facility] [address] [place] [phone] Discharge Disposition: Home or Self Care (Routine [...] How often do you attend uatsdin or orthodoxy serv ices? Patient declined 02/16/2023 [...] 12/01/2021 [facility]ational [...] in a long term (including now)? Patient refused 02/16/2023 Sex and [...] Kenny RN Active documented in this encounter Medications [...] total) by mouth nightly at bedtime. 12/31/2016 camphor-menthol (SARNA) lotion Apply topically 2 (two) times a day. 3 carvedilol (COREG) 3.125 MG tablet Take 1 tablet (3.125 mg total) by mouth 2 (two) times daily. 10/09/2022 dicloxacillin (DYNAPEN) 250 MG capsule 03/30/2023 3 docusate sodium 100 MG capsule Take 1 capsule (100 mg total) by mouth as needed for Constipation. furosemide (LASIX) 40 MG tablet Take 1 tablet (40 mg total) by mouth daily. 30 tablet 02/18/2023 3 gabapentin (NEURONTIN) 100 MG capsule Take 6 capsules (600 mg total) by mouth daily. 12/14/2022 3 glipiZIDE XL (GLUCOTROL XL) 5 MG 24 hr tablet Take 1 tablet (5 mg total) by mouth daily with breakfast. 30 tablet 02/09/2023 HYDROcodone-acet aminophen (NORCO) 7.5-325 MG tablet Take 1 tablet by mouth every 8 (eight) hours as needed for Pain. 3 hydrOXYzine (ATARAX) 50 MG tablet Take 1 tablet (50 mg total) by mouth 3 (three) times daily. As needed 10/09/2022 insulin detemir (LEVEMIR FLEXPEN) 100 UNIT/ML PEN Inject 15 Units into the skin nightly at bedtime. 9 mL 02/09/2023 4 JARDIANCE 25 MG tablet Take 1 tablet (25 mg total) by mouth daily. 10/31/2022 lidocaine 4 % patch Place 1 patch onto the skin daily. Remove & Discard patch within 12 hours or as directed by 30 patch 02/10/2023 3 losartan (COZAAR) 50 MG tablet Take 1 tablet (50 mg total) by mouth daily. 03/30/2023 4 metOLazone (ZAROXOLYN) 2.5 MG tablet Take 1 tablet (2.5 mg total) by mouth twice a week. 30 tablet 02/18/2023 3 mupirocin (BACTROBAN) 2 % ointment Apply 1 Application topically 2 (two) times daily. 12/14/2022 3 pantoprazole EC 40 MG tablet Take 1 tablet (40 mg total) by mouth daily. rOPINIRole (REQUIP) 4 MG tablet Take 1 tablet (4 mg total) by mouth nightly at bedtime. 10/17/2022 4 sertraline 50 MG tablet Take 1 tablet (50 mg total) by mouth daily. 10/03/2021 spironolactone (ALDACTONE) 25 MG tablet Take 1 tablet (25 mg total) by mouth daily. 09/05/2022 3 traZODone (DESYREL) 150 MG tablet Take 2 tablets (300 mg total) by mouth nightly at bedtime. 03/24/2022 TRELEGY ELLIPTA 100-62.5-25 MCG/ACT AEROSOL POWDER, BREATH ACTIVATED Inhale 1 puff into the lungs daily. 12/23/2022 triamcinolone (KENALOG) 0.1 % cream 03/30/2023 3 warfarin (COUMADIN) 1 MG tablet Take 1 [...] st Contact Info) Description 09/25/2024 2:00 PM PUBLIC SAFETY DISPATCHER Appointment [facility] [address] [place] [address] [place] [address] Zayra Powell, [facility] [address] [place] [address] 10/16/2024 3:30 PM PUBLIC SAFETY DISPATCHER Office Visit [facility] [id number] [facility] [place] [address] Brit Gonzáles MD [address] [place], [place] [address] documented as of this encounter Goals Goal Patient Goal Type Associated Problems Recent Progress Patient-Stated? Author Family - family caregiver with be involved in care transitions and discharge planning Lifestyle No Karen Quezada RN documented as of this encounter Procedures Procedure Name Priority Date/Time Associated Diagnosis Comments BASIC METABOLIC PANEL Routine 04/05/2023 10:45 AM CDT Chronic renal disease, stage III ([facility]/HCC HHS/HCC) documented in this encounter Results * (ABNORMAL) BASIC METABOLIC PANEL (04/05/2023 10:45 AM CDT) SODIUM S/P/B 134(L) 136 - 145 MMOL/L 04/05/2023 11:48 AM CDT [facility] POTASSIUM S/P/B 4.7 3.5 - 5.1 MMOL/L 04/05/2023 11:48 AM CDT [facility] CHLORIDE S/P/B 96(L) 98 - 107 MMOL/L 04/05/2023 11:48 AM T [facility] CO2 27.5 21.0 - 32.0 MMOL/L 04/05/2023 11:48 AM [facility] GLUCOSE 132(H) 70 - 99 MG/DL 04/05/2023 11:48 AM [facility] Comment: FASTING GLUCOSE 100 TO 125 MG/DL IS CONSISTENT WITH IMPAIRED FASTING GLUCOSE. FASTING GLUCOSE >125 MG/DL IS CONSISTENT WITH DIABETES. RANDOM GLUCOSE >200 MG/DL WITH HYPERGLYCEMIC SYMPTOMS IS CONSISTENT WITH DIABETES. PER ADA GUIDELINES BUN 112(H) 6 - 24 MG/DL 04/05/2023 11:48 AM [facility] CREATININE S/P/B 2.03(H) 0.70 - 1.30 MG/DL 04/05/2023 11:48 AM [facility] CALCIUM S/P/B 9.5 8.4 - 10.5 MG/DL 04/05/2023 11:48 AM [facility] ANION GAP 10.5 5.0 - 15.0 MMOL/L 04/05/2023 11:48 AM [facility] OSMOLALITY (CALC) 315 MOSM/KG 023 11:48 AM [facility] Comment:REFERENCE RANGE NOT ESTABLISHED GFR ESTIMATE 35(L) >89 ML/MIN/1. 73 M2 04/05/2023 11:48 AM [facility] GFR NOTES GFR REFERENCE S: 04/05/2023 11:48 AM [facility] Comment: THE ESTIMATED GFR IS CALCULATED [...] ml/min/1.73 m2 G5,KIDNEY FAILURE: <15 ml/min/1.73 m2 04/05/2023 10:4 5 AM CDT Theresa Sheriff PA-C LABORATORY Final Resu lt [facility] [address] [place] [address], documented in this encounter Visit Diagnoses Diagnosis Chronic renal disease, stage III (CMS/HCC HHS/HCC) Chronic kidney disease, Stage III (moderate) documented in this encounter Additional Health Concerns Assessment Noted Time PHQ-9 Depression Total Score: 0 12/02/19 22 1:18 PM CDT documented as of this encounter Care Teams Stress Analyst Relationship Specialty Start Date End Date Megan Infante MD [address] [place] [phone] PCP - General FAMILY PRACTICE 04/06/16 Piyush Pandey MD [employer] Production Team Member CARDIOVASCULAR DISEASE 04/06/16 12/28/23 Sharmila Davis APRN, [employer] [id number] [place] [address] NURSE PRACTITIONER 01/04/17 04/03/24 Linda Block MD [address] [facility] [address] [place] [address] [employer] Production Team Member CLINICAL CARDIAC ELECTROPHYSIOLOGY 02/08/17 04/12/23 Zaki Ortiz MD [address] [facility] [address] [place] [phone] Consulting Physician PULMONARY DISEASE 07/12/19 Concetta Acevedo MD [address] [place] [address] Surgeon NEUROLOGICAL SURGERY 12/16/22 Jeff Grace MD [address] [place] [address] Consulting Physician INTERNAL MEDICINE 02/11/23 documented as of this encounter
--- OUTSIDE RECORDS SUMMARY | 2024-09-03 19:09 | XMS_ITS | Encounter Summary ---
Author Organization [facility] Address [address] [place] [address]. [place] [address] [place] [address] Care Team Providers Care Liner Worker Name Role Phone Piyush Pandey MD Unavailable Unavailabl e Megan Infante MD Primary Care Provider [phone] Sharmila Davis APRN, NP-C Unavailable [phone] Linda Block MD Unavailable [phone] Zaki Ortiz MD Unavailable [phone] Concetta Acevedo MD Unavailable + [phone] Jeff Grace MD Unavailable Reason for Visit * Reason Comments Follow Up Encounter Details Date Type Department Care Team (Late st Contact Info) Description 03/08/2023 3:00 PM CDT Office Visit [facility] [place] [phone] Piyush Pandey MD Follow Up Social History Tobacco Use Types Packs/Day Years [...] How often do you attend scientologist or latter-day serv ices? Patient declined 02/16/2023 [...] move on to questions 3-9 0 12/01/2021 [facility] [place] [facility] Occupat ional Health - Occupational Stress [...] slept in a [facility] (including now)? Patient refused 02/16/2023 Sex and Gender Information Value Date Recorded Sex Assigned at Not on file Legal Sex Male 10:01 PM CDT Gender Identity Not on file Sexual Orientation Not on file Occupation Industry Job Start Date Job End Date Not on file Not on file Not on file Not on file COVID-19 Exposure Response Date Recorded In the last 10 days, have yo u been in contact with someone who was confirmed or suspected to have Coronavirus/COVID-19? No / Unsure 02/06/2023 1:44 AM CDT documented as of this encounter Last Filed Vital Signs Vital Sign Reading Time Taken Comments Blood Pressure 98/64 03/08/2023 3:00 PM CDT Pulse 70 03/08/2023 3:00 PM CDT Temperature - - Respiratory Rate 18 03/08/2023 3:00 PM CDT Oxygen Saturation 98% 03/08/2023 3:00 PM CDT Inhaled Oxygen Concentration - - Weight 91.5 kg (201 lb 12.8 oz) 03/08/2023 3:00 PM CDT Height 167.6 cm (5' 6 ) 03/08/2023 3:00 PM CDT Body Mass Index 32.57 03/08/2023 3:00 PM CDT documented in this encounter Functional Status * Are you deaf or do you have serious difficulty hearing Answer Date of Assessment Author Status No 02/16/2023 4:01 AM CDT Iva Lepe RN Active * Are you blind or do you have serious difficulty seeing, even when wearing glasses? Answer Date of Assessment Author Status No 02/16/2023 4:01 AM CDT Iva Lepe RN Active * Do you have serious difficulty walking or climbing stairs? Answer Date of Assessment Author Status Yes 02/16/2023 4:08 AM CDT vIa Lepe RN Active * Do you have difficulty dressing or bathing? Answer Date of Assessment Author Status No 02/16/2023 4:08 AM CDT Iva Lepe RN Active * Because of a physical, [...] Lepe RN Active documented in this encounter Patient Instructions * Patient Instructions* Marcella Freitas RN - 03/08/2023 3:00 PM CDT No changes were made to your medications today by Dr. Pandey Please check this list with your actual home medications for accuracy documented in this encounter Progress Notes * Piyush Pandey MD - 03/08/2023 3:00 PM CDT Reason for Visit: Follow Up History of Present Illness: Recommendations and Plan: Medications: Current Outpatient Medications: ??? albuterol sulfate HFA 108 (90 Base) MCG/ACT inhaler, Inhale 2 puffs into the lungs every 4 (four) hours as needed., Disp: , Rfl: ??? allopurinol 300 MG tablet, Take 1 tablet (300 mg total) by mouth daily., Disp: , Rfl: ??? aspirin 81 MG chewable tablet, Chew 1 tablet (81 mg total) by mouth daily., Disp: , Rfl: ??? atorvastatin 80 MG tablet, Take 1 tablet (80 mg total) by mouth nightly at bedtime., Disp: , Rfl: ??? camphor-menthol (SARNA) lotion, Apply topically 2 (two) times a day., Disp: , Rfl: ??? carvedilol (COREG) 3.125 MG tablet, Take 1 tablet (3.125 mg total) by mouth 2 (two) times daily., Disp: , Rfl: ??? docusate sodium 100 MG capsule, Take 1 capsule (100 mg total) by mouth as needed for Constipation., Disp: , Rfl: ??? furosemide (LASIX) 40 MG tablet, Take 1 tablet (40 mg total) by mouth daily., Disp: 30 tablet, Rfl: 0 ??? gabapentin (NEURONTIN) 400 MG capsule, Take 1 capsule (400 mg total) by mouth. 1 tablet in the morning and 2 tablets at night, Disp: , Rfl: ??? glipiZIDE XL (GLUCOTROL XL) 5 MG 24 hr tablet, Take 1 tablet (5 mg total) by mouth daily with breakfast., Disp: 30 tablet, Rfl: 0 ??? hydrOXYzine (ATARAX) 50 MG tablet, Take 1 tablet (50 mg total) by mouth 3 (three) times daily. As needed, Disp: , Rfl: ??? insulin detemir (LEVEMIR FLEXPEN) 100 UNIT/ML PEN, Inject 15 Units into the skin nightly at bedtime., Disp: 9 mL, Rfl: 0 ??? JARDIANCE 25 MG tablet, Take 1 tablet (25 mg total) by mouth daily., Disp: , Rfl: ? ? lidocaine 4 % patch, Place 1 patch onto the skin daily. Remove & Discard patch within 12 hours or as directed by MD, Disp: 30 patch, Rfl: 0 ??? metOLazone (ZAROXOLYN) 2.5 MG tablet, Take 1 tablet (2.5 mg total) by mouth twice a week., Disp: 30 tablet, Rfl: 0 ??? mupirocin (BACTROBAN) 2 % ointment, Apply 1 Application topically 2 (two) times daily., Disp: ,Rfl: ??? pantoprazole EC 40 MG tablet, Take 1 tablet (40 mg total) by mouth daily., Disp: , Rfl: ??? rOPINIRole (REQUIP) 4 MG tablet, Take 1 tablet (4 mg total) by mouth nightly at bedtime., Disp:, Rfl: ??? sertraline 50 MG tablet, Take 1 tablet (50 mg total) by mouth daily., Disp: , Rfl: ??? spironolactone (ALDACTONE) 25 MG tablet, Take 1 tablet (25 mg total) by mouth daily., Disp: , Rfl: ??? traZODone (DESYREL) 100 MG tablet, Take 2 tablets (200 mg total) by mouth nightly at bedtime., Disp: , Rfl: ??? TRELEGY ELLIPTA 100-62.5-25 MCG/ACT AEROSOL POWDER, BREATH ACTIVATED, Inhale 1 puff into the lungs daily., Disp: , Rfl: ??? warfarin (COUMADIN) 1 MG tablet, Take 1 tablet (1 mg total) by mouth daily. Take with 5mg tab to make it 6 mg daily. Repeat INR in 3-4 days to adjust the dose of warfarin as per PCP, Disp: 30 tablet, Rfl: 0 ??? warfarin (COUMADIN) 5 MG tablet, Take 1 tablet (5 mg total) by mouth daily. Take with 1 mg tab to make it 6 mg daily. Repeat INR in 3-4 days to adjust the dose of warfarin as per PCP, Disp: 30 tablet, Rfl: 0 ??? HYDROcodone-acetaminophen (NORCO) 7.5-325 MG tablet, Take 1 tablet by mouth every 8 (eight) hours as needed for Pain., Disp: , Rfl: No Known Allergies Past Medical History: Diagnosis Date ??? Abnormal [...] edema Past Surgical History: Procedure Laterality Date ??? APPENDECTOMY ??? CARDIAC VALVE REPLACEMENT 1999 ??? CARDIAC VALVE REPLACEMENT 2013 ??? CARDIOVERSION EXTERNAL 10/01/2015 ??? CARDIOVERSION EXTERNAL 04/14/2012 ??? COLONOSCOPY N/A 03/18/2021 COLONOSCOPY (Incomplete) performed by Kilo Navarro MD at [facility] OR ??? COLONOSCOPY N/A 01/27/2022 COLONOSCOPY WITH COLD SNARE POLYPECTOMY performed by Kilo Navarro MD at [facility] OR ??? HIP ARTHROPLASTY Left ??? KNEE ARTHROPLASTY Bilateral ??? REPAIR ROTATOR CUFF W/ OR W/O ACROMIOPLASTY Left ??? USE NEMO+CARDIOVERSION 03/24/2016 ??? XA A-FIB ABLATION 10/23/2015 PVI/WACA Social History Tobacco Use ??? Smoking status: Former ??? Smokeless tobacco: Former Types: Chew Vaping Use ??? Vaping Use: Never used Substance Use Topics ??? Alcohol use: Yes Comment: 6 beers per week ??? Drug use: No Family History Problem Relation Name Age of Onset ??? TB Mother Family Status Relation Name Status ??? Mother ??? Father ??? Sister Alive ??? Brother Alive ??? MGM ??? MGF ??? PGM ??? PGF Review of Systems Constitutional: Negative for recent [...] worsening joint stiffness/pain. Skin: Negative for rash. Legs itching,pain Neurological: Negative for tingling/numbness and focal weakness. Endo/Heme/Allergies: Negative for new or significant bruising/bleeding and polydipsia. Psychiatric/Behavioral: Negative for depression and new or significant memory loss. Vitals: 03/08/23 1500 BP: 98/64 BP Location: Left arm Pulse: 70 Weight: 91.5 kg (201 lb 12.8 oz) Height: 5' 6 (1.676 m) Body mass index is 32.57 kg/m??. Cardiac Exam Rate/Rhythm: Normal rate and regular rhythm. PMI: PMI is not displaced. Pulses: Normal pulses. Femoral pulses are 2+ on the right side and 2+ on the left side. Heart Sounds: Normal S1 sounds. Normal S2 sounds. No gallop present. No S3. No S4. Murmurs: Murmur present (2/6 CALLIE radiating to both carotids) Physical Exam Constitutional: No distress. Healthy Appearance. Wearing [place] [employer] shirt. HENT: Oropharynx clear. Eyes: Pupils equal, round, and reactive to light. Conjunctivae normal. Neck: Neck supple. No JVD. Abdomen: Abdomen soft. Bowel sounds normal. Distension. No tenderness. No mass. No hepatomegaly. Nosplenomegaly. Abdominal aorta not palpably enlarged. No abdominal bruit present. Pulmonary: Effort normal. Breath sounds normal. Skin: No rash. No cyanosis. No clubbing. No xanthoma. Erythematous LE below knees bilaterally,somewhat erhythematous. Musculoskeletal: No kyphosis. Normal ROM. Wheelchair. Neurological: Alert. Oriented x 3. Appropriate mood and affect. Normal motor skills. Normal gait. Comments: The documentation for the above exam was created using a template entered by ancillary staff however the physical exam was completed entirely by the provider responsible for this visit. Thephysical exam documentation was reviewed and modified by the provider to reflect his/her findings. Diagnoses/Impression: 1. Preop cardiovascular exam 2. Chronic combined systolic and diastolic congestive heart failure (HHS/HCC) (CMS/HCC) 3. Coronary artery disease involving venetie coronary artery of venetie heart without angina pectoris 4. S/P aortic valve replacement with bioprosthetic valve 5. Chronic atrial fibrillation (HHS/HCC) (CMS/HCC) 6. Essential hypertension 7. Mixed hyperlipidemia 8. Obstructive sleep apnea (adult) (pediatric) 9. Pulmonary hypertension (HHS/HCC) (CMS/HCC) Referring Provider: No ref. provider found PCP: MEGAN INFANTE MD * Piyush Pandey MD - 03/08/2023 3:00 PM CDT HISTORY OF PRESENT ILLNESS: Mr. Lay is seen in the cardiology clinic today in consultation. He is a 67-year-old gentleman with a history of coronary artery disease, paroxysmal atrial fibrillation status post PVI/WACA on 10/24/15 and cardioversion on 04/07, aortic stenosis status post mechanical valve replacement in 1999 and bioprosthetic valve replacement in 2013, left ventricular dysfunction,mild carotid stenosis, hypertension, hyperlipidemia, type 2 diabetes mellitus, and COPD. He is being seen in the clinic today for preoperative assessment of his cardiovascular risk prior to undergoing neck surgery. Mr. Lay is well known to me from previous evaluation and treatment. Mr. Lay reports that his main limiting factor at the present time revolves around significant cervical neck pain. He has been told that he requires surgical intervention to alleviate his ongoing pain and significant limitations. Since last being seen, his BiDil has been stopped and he has been placed back on Losartan. A review of the records shows that Mr. Lay was hospitalized at [facility] from 12/28/22to 01/04/23 for congestive heart failure and cellulitis. He was diuresed at that time and given antibiotics. His echocardiogram revealed a left ventricular ejection fraction of 37% with mild left ventricular hypertrophy, moderately reduced right ventricular systolic function, and a bioprosthetic aortic valve replacement with a mean gradient of 16 mmHg. He was anemic at that time with a serum hemoglobin as low as 8.1. He was found to have a possible sigmoid volvulus, which was managed conservatively. At the time of his discharge, he weighed 219 pounds and since that time, he has done reasonably well from a cardiac standpoint. Mr. Lay does complain of some ongoing leg itching. He has developed no significant other symptomatology since his previous discharge from [facility]. He has had no recurrent heart failure symptomatology and feels as though he is stable from a cardiac standpoint. A review of the records show that recent laboratory in January of this year showed a serum potassium of 4.3 with a BUN of 72 and creatinine 2.81. Alkaline phosphatase was elevated at 144 and the remainder of the liver function tests were unremarkable with the exception of a low serum albumin of 3.1. Achest x-ray performed on 02/07/23 showed no new or worsening pulmonary abnormality. There was stable cardiomegaly and there were postoperative changes of median sternotomy and valvular prosthesis. There did appear to be interstitial opacities in the lower two-thirds of the lungs bilaterally suggestive of some pulmonary edema versus chronic interstitial scarring. RECOMMENDATION AND PLAN: Mr. Lay's cardiac status appears clinically stable at the present time without ongoing anginal chest pain, overt symptoms of congestive heart failure, or clinical evidenceof hemodynamically significant arrhythmias. His main limitations at this time revolve around his significant cervical spine pain. I believe that Mr. Lay's cardiac status is stable at the present time. His cardiovascular risk of the proposed cervical spine surgery does appear to be at least moderately increased in light of his extensive cardiac history as outlined above. This cardiovascular risk is felt to be acceptable; however, in light of the overall clinical situation. Mr. Lay is anxious to pursue surgical intervention for his significant cervical spine surgery and I think this is reasonable. At the time of surgery, I would recommend the followin. Perioperative telemetry monitoring. 2. Discontinuation of Warfarin anticoagulation 5-7 days prior to the procedure. 3. Perioperative maintenance of beta-blockade (Carvedilol) and statin therapy (Atorvastatin). 4. Maintenance of a serum hemoglobin of 8.0 or greater, if possible. 5. Cautious fluid resuscitation to avoid exacerbation of heart failure. From a long-term standpoint, I have asked Mr. Lay to continue his present medical regimen without alteration. Plans will be made for him to return to the cardiology clinic for routine followup in 6 months. I have encouraged him to contact me in the meantime should he have any questions or problems. #[id number] /DAR documented in this encounter Plan of Treatment Upcoming Encounters Date Type Department Care Team (Late st Contact Info) Description 09/25/2024 2:00 PM SEISMIC COMPUTER Appointment [facility] [address] [address] Zayra Powell, INFANTRY OPERATIONS SPECIALIST [address] [address] 10/16/2024 3:30 PM SEISMIC COMPUTER Office Visit [facility] [address] [place] [phone] Brit Gonzáles MD [address] [place] [address] documented as of this encounter Goals Goal Patient Goal Type Associated Problems Recent Progress Patient-Stated? Author Family - family caregiver with be involved in care transitions and discharge planning Karen Evans RN documented as of this encounter Visit Diagnoses Diagnosis Preop cardiovascular exam- Primary Pre-operative cardiovascular examination Chronic combined systolic and diastolic congestive heart failure (HHS/HCC) (CMS/HCC) Chronic combined systolic and diastolic heart failure Coronary artery disease involving venetie coronary artery of venetie heart without angina pectoris S/P aortic valve replacement with bioprosthetic valve Heart valve replaced by other means Chronic atrial fibrillation (HHS/HCC) (CMS/HCC) Atrial fibrillation Essential hypertension Unspecified essential hypertension Mixed hyperlipidemia Obstructive sleep apnea (adult) (pediatric) Pulmonary hypertension (HHS/HCC) (CMS/HCC) Other chronic pulmonary heart diseases documented in this encounter Additional Health Concerns Assessment Noted Time PHQ-9 Depression Total Score: 0 12/02/19 22 1:18 PM CDT documented as of this encounter Care Teams Liner Worker Relationship Specialty Start Date End Date Megan Infante MD [address] [place] [address] PCP - General FAMILY PRACTICE 04/06/16 Piyush Pandey MD [place] Photoengraving Etcher Apprentice CARDIOVASCULAR DISEASE 04/06/16 12/28/23 Sharmila Davis, SENIOR SUPPLY CHAIN ANALYST, RETAIL BUSINESS MANAGER-C [address] [phone] NURSE PRACTITIONER 01/04/17 04/03/24 Linda Block MD [address] [place] [address] [phone] [place] Photoengraving Etcher Apprentice CLINICAL CARDIAC ELECTROPHYSIOLOGY 02/08/17 04/12/23 Zaki Ortiz MD [address] [place] [address] [phone] Consulting Physician PULMONARY DISEASE 07/12/19 Concetta Acevedo MD [address] [place] [address] Surgeon NEUROLOGICAL SURGERY 12/16/22 Jeff Grace MD [address] [place] [address] Consulting Physician INTERNAL MEDICINE 02/11/23 documented as of this encounter
--- OUTSIDE RECORDS SUMMARY | 2024-09-03 19:09 | XMS_ITS | Encounter Summary ---
Author Organization [facility] Address [facility] [place] [address] [place] [address] Care Team Providers Care Pressure Test Operator Name Role Phone Piyush Pandey MD Unavailable Unavailabl e Megan Infante MD Primary Care Provider [phone] Sharmila Davis APRN EYEGLASS CUTTER-C Unavailable [phone] Zaki Ortiz MD Unavailable [phone] Concetta Acevedo MD Unavailable + [phone] Jeff Grace MD Unavailable Encounter Details Date Type Department Care Team (Latest Contact Info) Description 04/13/2023 Travel Social History Tobacco Use Types Packs/Day [...] How often do you attend taoist or yarsanism serv ices? Patient declined 02/16/2023 [...] move on to questions 3-9 0 12/01/2021 [facility] Occupat ional Health - Occupational [...] slept in a assisted (including now)? Patient refused 02/16/2023 Sex and [...] st Contact Info) Description 09/25/2024 2:00 [address] Appoint[address] [facility] [address] [address] Zayra Powell, EXCHANGE ENGINEER [address] [place] [address] 10/16/2024 3:30 PM EQUINE MANAGER Office Visit [facility] [phone] [address] Brit Gonzáles MD [address] [place] [address] documented as of this encounter [...] documented as of this encounter Care Teams Pressure Test Operator Relationship Specialty Start Date End Date Megan Infante MD [address] [place] [address] PCP - General FAMILY PRACTICE 04/06/16 Piyush Pandey MD [place] [employer] Electrical CARDIOVASCULAR DISEASE 04/06/16 12/28/23 Sharmila Davis APRN, EYEGLASS CUTTER-C [address] [facility] [address] [place] [address] NURSE PRACTITIONER 01/04/17 04/03/24 Zaki Ortiz MD [address] [facility] [address] [place] [phone] Consulting Physician PULMONARY DISEASE 07/12/19 Concetta Acevedo MD [address] [place] [phone] Surgeon NEUROLOGICAL SURGERY 12/16/22 Jeff Grace MD [address] [place], [place] [address] Consulting Physician INTERNAL MEDICINE 02/11/23 documented as of this encounter
--- OUTSIDE RECORDS SUMMARY | 2024-09-03 19:09 | XMS_ITS | Encounter Summary ---
Author Organization [facility] Address [address] [place] [address]. [place] [address] [place] [address] Care Team Providers Care Electrical Design Technician Name Role Phone Piyush Pandey MD Unavailable Unavailabl e Megan Infante MD Primary Care Provider [phone] Sharmila Davis APRN AIR TWISTER WINDER-C Unavailable [phone] Zaki Ortiz MD Unavailable [phone] Concetta Acevedo MD Unavailable + [phone] Jeff Grace MD Unavailable Encounter Details Date Type Department Care Team (Late st Contact Info) Description 07/22/2023 12:53 PM MEASUREMENT COORDINATOR - 07/22/2023 11:59 PM MEASUREMENT COORDINATOR Hospital Encounter [facility] [address] [place] [address] Zayra Powell, [facility] [address] [place] [address] Discharge Disposition: Home or Self Care (Routine Discharge) Social History Tobacco Use Types Packs/Day Years Used Date Smoking Tobacco: Former Smokeless Tobacco: Former Chew Alcohol Use Standard Drinks/Week Comments Yes 0 (1 standard drink = 0.6 oz pur e alcohol) 6 beers per week [facility] Utilities Answer Date Recorded In [...] How often do you attend mormonism or judaism serv ices? Patient declined 02/16/2023 [...] on to questions 3-9 0 12/01/2021 [facility] Occupat ional Health - Occupational [...] st Contact Info) Description 09/25/2024 2:00 PM MEASUREMENT COORDINATOR Appointment [facility] [address] [place] [address] Zayra Powell, [facility] [address] [place] [address] 10/16/2024 3:30 PM MEASUREMENT COORDINATOR Office Visit [facility] [address] [place] [phone] Brit Gonzáles MD [address] [place] [address] documented as of this encounter Goals Goal [...] as of this encounter Care Teams Electrical Design Technician Relationship Specialty Start Date End Date Megan Inafnte MD [address] [facility] [place] [phone] PCP - General FAMILY PRACTICE 04/06/16 Piyush Pandey MD [place] Restoration Officer CARDIOVASCULAR DISEASE 04/06/16 12/28/23 Sharmila Davis APRN, AIR TWISTER WINDER-C [address] [address] NURSE PRACTITIONER 01/04/17 04/03/24 Zaki Ortiz MD [address] [place] [phone] Consulting Physician PULMONARY DISEASE 07/12/19 Concetta Acevedo MD [address] [place] [address] Surgeon NEUROLOGICAL SURGERY 12/16/22 Jeff Grace MD [address] [place], [place] [phone] Consulting Physician INTERNAL MEDICINE 02/11/23 documented as of this encounter
--- OUTSIDE RECORDS SUMMARY | 2024-09-03 19:09 | XMS_ITS | Encounter Summary ---
Author Organization [facility] Address [address] [place] [address]. [place] [address] [place] [address] Care Team Providers Care Acls Specialist Name Role Phone Piyush Pandey MD Unavailable Unavailabl e Megan Infante MD Primary Care Provider [phone] Sharmila Davis APRN STUDENT FINANCE ADVISOR-C Unavailable [phone] Zaki Ortiz MD Unavailable [phone] Concetta Acevedo MD Unavailable + [phone] Jeff Grace MD Unavailable Encounter Details Date Type Department Care Team (Late st Contact Info) Description 08/03/2023 10:53 AM TOOL SPECIALIST - 08/03/2023 11:59 PM [facility] Hospital Encounter [facility] [address] [place] [address] Zayra Powell, [facility] [address] [place] [address] Discharge Disposition: Home or Self Care (Routine Discharge) Social History Tobacco Use Types Packs/Day Years Used Date Smoking Tobacco: Former Smokeless Tobacco: Former Chew Alcohol Use Standard Drinks/Week Comments Yes 0 (1 standard drink = 0.6 oz pur e alcohol) 6 beers per week [facility] Utilities Answer Date Recorded In the [...] declined 02/16/2023 How often do you attend judaism or congregational serv ices? Patient declined 02/16/2023 Do you belong to any clubs o r organizations such as judaism groups, unions, fraternal or athletic groups, or [...] move on to questions 3-9 0 12/01/2021 [facility] - Occupational [...] Progress Notes * Mary Moore RN - 08/03/2023 11:00 AM CSTEncounter addended by: Mary Moore RN on: 08/03/2023 12:52 PM Actions taken: MAR administration accepted SPECIALIST documented in this encounter Plan of Treatment Upcoming Encounters Date Type Department Care Team (Late st Contact Info) Description 09/25/2024 2:00 PM TOOL SPECIALIST Appointment [facility] [address] [place] [address] Zayra Powell, FIRE PREVENTION ENGINEER [address] [place] [address] 10/16/2024 3:30 PM TOOL SPECIALIST Office Visit [facility] [address] [place] [phone] Brit Gonzáles MD [address] [place] [address] documented as of this encounter Goals Goal Patient Goal Type Associated Problems Recent Progress Patient-Stated? 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 [phone] PCP - General FAMILY PRACTICE 04/06/16 Piyush Pandey MD Ronda Ship Purser CARDIOVASCULAR DISEASE 04/06/16 12/28/23 Sharmila Davis, DANNY, STUDENT FINANCE ADVISOR-C [address] [place] [address] [phone] NURSE PRACTITIONER 01/04/17 04/03/24 Zaki Ortiz MD [address] [place] [address] [phone] Consulting Physician PULMONARY DISEASE 07/12/19 Romeo-Concetta Pond MD [address] [place] [address] [phone] Surgeon NEUROLOGICAL SURGERY 12/16/22 Jeff Grace MD [address] [place] [id number] Consulting Physician INTERNAL MEDICINE 02/11/23 documented as of this encounter
--- OUTSIDE RECORDS SUMMARY | 2024-09-03 19:09 | XMS_ITS | Encounter Summary ---
Author Organization [facility] Address [facility] [place] [address] [place] [address] Care Team Providers Care Electrician Research Name Role Phone Amauri Pandey MD Unavailable Unavailabl e Megan Infante MD Primary Care Provider [phone] Sharmila Davis APRN, NP-C Unavailable [phone] Linda Block MD Unavailable [phone] Zaki Ortiz MD Unavailable [phone] RomeoConcetta Pond MD Unavailable [phone] Jeff Grace MD Unavailable Reason for Referral * (Routine) - Closed Specialty Diagnoses / Procedures Referred By Contac t Referred To Contact Procedures OT Eval and Treat [facility] [address] [place] [address] Phone: tel: Referral ID Status Reason Start Date Expiration Date Visits Re quested Visits Authorized [id number] Closed 02/18/2023 02/19/2024 1 1 * (Routine) - Closed Specialty Diagnoses / Procedures Referred By Contac t Referred To Contact Procedures PT Eval and Treat [facility] [address] [place] [address] Phone: tel: Referral ID Status Reason Start Date Expiration Date Visits Re quested Visits Authorized [id number] Closed 02/18/2023 02/19/2024 1 1 * (Routine) - Closed Specialty Diagnoses / Procedures Referred By Yung t Referred To Contact Procedures OT Lianne and Segundo Lewis MD Phone: tel: fax: Referral ID Status Reason Start Date Expiration Date Visits Re quested Visits Authorized [id number] Closed 02/16/2023 02/17/2024 1 1 * (Routine) - Closed Specialty Diagnoses / Procedures Referred By Yung t Referred To Contact Procedures PT EvSegundo Chopra MD Phone: tel: fax: Referral ID Status Reason Start Date Expiration Date Visits Re quested Visits Authorized [id number] Closed 02/16/2023 02/17/2024 1 1 Reason for Visit * Auth/Cert (Routine) Specialty Diagnoses / Procedures Referred By Yung t Referred To Contact Diagnoses NSTEMI (non-ST elevated myocardial infarction) ([facility]/HCC [facility]/HCC) multiple falls, NSTEMI, Hyperglycemic (over 500) NSTEMI (non-ST elevated myocardial infarction) ([facility]) Procedures NONE Segundo Montana MD [address] [place] [address] Phone: tel: fax: Referral ID Status Reason Start Date Expiration Date Visits Re quested Visits Authorized [id number] 1 1 Encounter Details Date Type Department Care Team (Latest Contact Info) Description 02/16/2023 3:08 AM CDT - 02/18/2023 1:26 PM CDT Hospital Encounter [facility] [address] [place] [address] Segundo Montana MD 1 [facility] [place] [address] Daniel Dupree MD [address] [place] [address] Discharge Disposition: Home with Home Health Care Social History Tobacco Use Types Packs/Day Years [...] declined 02/16/2023 How often do you attend christian or taoist serv ices? Patient declined 02/16/2023 Do you belong to any clubs o r organizations such as christian groups, unions, fraternal or athletic groups, or [...] move on to questions 3-9 0 12/01/2021 [facility] - Occupational [...] to sleep or slept in a senior care (including now)? Patient refused 02/16/2023 Sex and [...] Recorded In the last 10 days, have neela herrera been in contact with someone who was confirmed or suspected to have Coronavirus/COVID-19? No / Unsure 02/06/2023 1:44 AM CDT documented as of this encounter Last Filed Vital Signs Vital Sign Reading Time Taken Comments Blood Pressure 124/58 02/18/2023 7:45 AM CDT Pulse 74 02/18/2023 7:45 AM CDT Temperature 36.6 ??C (97.9 ??F) 02/18/2023 7:45 AM CD T Respiratory Rate 18 02/18/2023 7:45 AM CDT Oxygen Saturation 98% 02/18/2023 7:45 AM CDT Inhaled Oxygen Concentration - - Weight 91.2 kg (201 lb 1 oz) 02/16/2023 3:11 AM CDT Height 167.6 cm (5' 6 ) 02/16/2023 3:11 AM CDT Body Mass Index 32.45 02/16/2023 3:11 AM CDT documented in this encounter Functional Status * Question Answer Date of Assessment Author Status Do you have serious difficulty walking or climbing stairs? Yes 02/16/2023 4:08 AM CDT Iva Lepe RN Ac tive * Question Answer Date of Assessment Author Status Do you have difficulty dressing or bathing? No 02/16/2023 4:08 AM CDT Iva Lepe R N Active Because of a physical, mental, or emotional condition, do you have difficulty doing errands alone such as visiting a doctor's office or shopping? No 02/16/2023 4:08 AM CDT Iva Lepe RN Act nhan * Are you deaf [...] difficulty concentrating, remembering, or making decisions? No 02/16/2023 4:08 AM Iva Kenny R N Active * Because of a physical, mental, or emotional condition, do you have serious difficulty concentrating, remembering, or making decisions? Answer Entry Date Author Status No 02/16/2023 4:08 AM Iva Kenny RN Active documented in this encounter Discharge Summaries * Daniel Dupree MD - 02/18/2023 11:25 AM CDTSummary: Discharge Summary Patient ID: Obie Sims [id number] 67-year-old 1955 Admit date: 02/16/2023 Expected Discharge Date: 02/18/2023 Primary care Physician: MEGAN INFANTE MD Admitting Physician: Segundo Montana MD Discharge Physician: Daniel Dupree MD Admission Diagnoses: NSTEMI (non-ST elevated myocardial infarction) ([facility]) [I21.4] Discharge Diagnoses: Elevated Trop, flat, downtrending, no convicing symptomatology to suggest ACS, likely demand ischemia due to fall and ALICIA H/O CAD Mechanical Fall Leucocytosis, resolved ALICIA on CKD 4 Chronic HFrEF Aortic stenosis s/p MVR in 1999 & bioprosthetic valve (2013) Severe pulm hypertension Hypertension Hyperlipidemia Atrial Fibrillation, paroxysmal COPD Chronic Anemia Past Medical History Past Medical History: Diagnosis Date Abnormal ankle brachial index ([facility]) Acute on chronic heart failure, unspecified heart failure type ([facility]) Anxiety Aortic valve stenosis Arthritis Asthma, mild persistent 04/06/2021 Atrial fibrillation ([facility]) s/p PVI/[facility] 10/2015 Bilateral leg pain Carotid disease, bilateral (CMS/HCC) CHF (congestive heart failure) (CMS/HCC) Claudication ([facility]/HCC) COPD (chronic obstructive pulmonary disease) ([facility]/HCC) Coronary artery disease Diabetes mellitus, type II (CMS/HCC) Edema 04/19/2018 2+ pitting History of blood transfusion Hyperlipidemia Hypertension LV dysfunction Osteoarthritis PAD (peripheral artery disease) (CMS/HCC) Pneumonia Restless leg syndrome S/P aortic valve replacement with bioprosthetic valve 2013 SOB (shortness of breath) Stroke ([facility]) Varicose veins of bilateral lower extremities with other complications Weight gain with edema Past Surgical History: Procedure Laterality Date APPENDECTOMY CARDIAC VALVE REPLACEMENT 1999 CARDIAC VALVE REPLACEMENT 2013 CARDIOVERSION EXTERNAL 10/01/2015 CARDIOVERSION EXTERNAL 04/14/2012 COLONOSCOPY N/A 03/18/2021 COLONOSCOPY (Incomplete) performed by Kilo Navarro MD at [facility] OR COLONOSCOPY N/A 01/27/2022 COLONOSCOPY WITH COLD SNARE POLYPECTOMY performed by Kilo Navarro MD at [facility] OR HIP ARTHROPLASTY Left KNEE ARTHROPLASTY Bilateral REPAIR ROTATOR CUFF W/ OR W/O ACROMIOPLASTY Left USE NEMO+CARDIOVERSION 03/24/2016 XA A-FIB ABLATION 10/23/2015 PVI/[facility] Hospital Course: 67 y/o M w/ hx of Type 2 DM, CAD, COPD, LBBB, s/p mechanical valve in 2021 and bioprosthetic AVRin 2013, A-fib on Warfarin, Chronic HFrEF (LVEF 37%), Severe Pulmonary HTN, HLD, hx of CVA, and CKD, who presented to ED w/ falls, malaise, and hyperglycemia. Pt recently discharged from [facility] on 02/09after admission for falls and found to have rib fractures and discharged to swing unit. He was found to have elevated Trop and was transferred to [facility] for the same. CTH and CT cervical spine were unremarkable. Elevated Trop, flat, downtrending, no convicing symptomatology to suggest ACS CAD --LHC in Aug 2020 w/ proximal LAD 60% stenosis, and ostial RCA 50% stenosis. Managed medically. -- Continue aspirin, Coreg, and atorvastatin. -- Seen by cardiology, believes elevated trop is secondary to demand ischemia from fall and ALICIA --pt w/o chest pain. EKG w/ LBBB which is known. Fall: no prodrome symptoms. Seen by PT/OT lianne, recommends home with assistance. CT head and cervical spine neg. Orthostatic vitals negative. Already has HHS which has been initiated by case management prior to discharge Leukocytosis, resolved, afebrile --Cultures with no growth till date, A neg at OSH. CXR reportedly normal. --Likely reactive Chronic HFrEF Aortic stenosis s/p MVR in 1999 & bioprosthetic valve (2013) Severe pulm hypertension Hypertension Hyperlipidemia --Echo in December 2022 w/ mild LVH, EF 37%, RV mod dysfunction. --Renal function much better today, being discharged on decreased dose of diuretics--Metolazone twice a week as recommended below, lasix 40 mg daily only for now. He has no significant volume overload. HHS need to monitor his body weight and volume status along with lung during each visit. Diuretics dose need to be adjusted based on volume status --cont coreg, jardiance. Atrial Fibrillation: cont Coreg. INR subtherapeutic to 1.3 as his warfarin was held for 2 days. Being discharged on daily dose of 6 mg. Will need INR checked within the next 3-4 days and warfarin dose adjusted by PCP. Home health services to aid in getting blood draws. ALICIA on CKD 4: Diabetes Hyperglycemia --Renal function is at baseline. Monitor with repeat labs in a week with PCP --Baseline Cr 1.8-2.2. --Continue home diabetes medications including lantus, Glipizide and COPD: Cont home inhalers. Chronic Anemia: Stable hemoglobin Monitor with repeat labs per PCP Consults: #. Cardiology Procedures/Significant Diagnostic Studies: None Discharged Condition: good Code Status: Full Code Discharge Exam: Vitals: 02/18/23 0745 BP: 124/58 Pulse: 74 Resp: 18 Temp: 97.9 ??F (36.6 ??C) SpO2: 98% Physical Exam General: appears to be in no acute distress. Head: R. Superficial wound on the forehead. Eyes: PERRL, EOMI, vision is grossly normal, no scleral icterus. Ears: hearing grossly intact, atraumatic external ear Throat: Oropharynx without erythema or tonsillar exudate. Moist Mucous Membranes . Neck: Symmetric, trachea midline, supple, no thyroidmegaly. Lungs: clear to auscultation bilaterally Heart: regular rate and rhythm, S1, S2 normal, no murmur, click, rub or gallop Abdomen: soft, non-tender. Bowel sounds normal. No masses or hepatosplenomegaly. Skin: dry coarse skin of b/l LE noted, Neurologic: Alert and Oriented x3, no focal deficits. Sensation grossly normal. Psych: Appropriate mood and affect. Disposition: home health Patient Instructions: Current Discharge Medication List CONTINUE these medications which have CHANGED Details furosemide (LASIX) 40 MG tablet Take 1 tablet (40 mg total) by mouth daily. Qty: 30 tablet, Refills: 0 metOLazone (ZAROXOLYN) 2.5 MG tablet Take 1 tablet (2.5 mg total) by mouth twice a week. Qty: 30 tablet, Refills: 0 !! warfarin (COUMADIN) 1 MG tablet Take 1 tablet (1 mg total) by mouth daily. Take with 5mg tab to make it 6 mg daily. Repeat INR in 3-4 days to adjust the dose of warfarin as per PCP Qty: 30 tablet, Refills: 0 !! warfarin (COUMADIN) 5 MG tablet Take 1 tablet (5 mg total) by mouth daily. Take with 1 mg tab tomake it 6 mg daily. Repeat INR in 3-4 days to adjust the dose of warfarin as per PCP Qty: 30 tablet, Refills: 0 !! - Potential duplicate medications found. Please discuss with provider. CONTINUE these medications which have NOT CHANGED Details albuterol sulfate HFA 108 (90 Base) MCG/ACT [...] total) by mouth as needed for Constipation. gabapentin (NEURONTIN) 400 MG capsule Take 1 capsule (400 mg total) by mouth. 1 tablet in the morning and 2 tablets at night glipiZIDE XL (GLUCOTROL XL) 5 MG 24 hr tablet Take 1 tablet (5 mg total) by mouth daily with breakfast. Qty: 30 tablet, Refills: 0 HYDROcodone-acetaminophen (NORCO) 7.5-325 MG tablet Take 1 tablet by mouth every 8 (eight) hours asneeded for Pain. hydrOXYzine (ATARAX) 50 MG tablet Take 1 tablet (50 mg total) by mouth 3 (three) times daily. As needed insulin detemir (LEVEMIR FLEXPEN) 100 UNIT/ML PEN Inject 15 Units into the skin nightly at bedtime. Qty: 9 mL, Refills: 0 JARDIANCE 25 MG tablet Take 1 tablet (25 mg total) by mouth daily. lidocaine 4 % patch Place 1 patch onto the skin daily. Remove & Discard patch within 12 hours or as directed by Qty: 30 patch, Refills: 0 mupirocin (BACTROBAN) 2 % ointment Apply 1 Application topically 2 (two) times daily. pantoprazole EC 40 MG tablet Take [...] daily. traZODone (DESYREL) 100 MG tablet Take 2 tablets (200 mg total) by mouth nightly at bedtime. TRELEGY ELLIPTA 100-62.5-25 MCG/ACT AEROSOL POWDER, BREATH ACTIVATED Inhale 1 puff into the lungs daily. STOP taking these medications methocarbamol (ROBAXIN) 500 MG tablet Activity: as tolerated. Diet: cardiac diet along with diabetic diet, Fluid restriction of 1800 cc daily Wound Care: none needed Follow up: [place] [address] [place] [address] [place] [phone] Schedule an appointment as soon as possible for a visit in 1 week(s) I personally spent a total of 35 minutes on the day of the encounter. This includes aosh-rk-gzeu and qxf-pfcf-kb-face time I provided on the day of the encounter & excludes time spent performing separately reportable services. Thank you for allowing [facility] hospitalist service to take care of your patient, Please call [phone] if you have any questions or concern. Signed: Daniel Dupree MD 02/18/2023 11:48 AM documented in this encounter Medications at Time [...] by mouth 2 (two) times daily. 10/09/2022 docusate sodium 100 MG capsule Take 1 [...] as directed by 30 patch 02/10/2023 3 metOLazone (ZAROXOLYN) 2.5 MG tablet Take 1 [...] into the lungs daily. 12/23/2022 warfarin (COUMADIN) 1 MG tablet Take 1 [...] as of this encounter Progress Notes * Teresa Eugene - 02/18/2023 1:26 PM CDTSummary: CM Progress Note 02/19/23 1433 Forms Reinforcement Important Message from Medicare (Subsequent IMM) Reinforcement IMM not applicable Reason Reinforcement IM is NA Initial IMM signed within 2 days of discharge * Deloris Barroso RN - 02/18/2023 10:42 AM CDT 02/18/23 1000 Interdisciplinary Group Conference Team Members Present Physician;Case/Care management Physician present for group conference Dr Dupree [facility] Barriers to Discharge Barriers Other (Comment) Other (Comment)follow up dc today [facility] notified of dc today. They will see [facility] Daughter will transport * Amauri Pandey MD - 02/18/2023 9:54 AM CDT Chart reviewed. Elevated Troponin level -- demand ischemia. Aortic stenosis -- S/P mechanical AVR (1999) and bioprosthetic AVR (2013). Chronic systolic CHF (LVEF 37%). Paroxysmal atrial fibrillation -- S/P ablation. Mechanical falls Carotid artery disease PAD HTN Hyperlipidemia LBBB pattern CKD Hx of CVA COPD Pulmonary hypertension Rhythm: sinus BP 124/58 mmHg. No anginal chest pain. Labs reviewed. INR 1.3, K+ 3.9, BUN/Cr 54/1.74, Hgb 9.6. Echo (12/29/22): LVEF 37%, RV enlargement/moderately depressed function, biatrial enlargement, AVR normal, trace MR. Physical Exam Vitals reviewed Constitutional: General: No acute distress. Appearance: He is ill-appearing. Cardiovascular: Rate and Rhythm: Normal rate and regular rhythm. No rub. Pulmonary: Effort: No respiratory distress. No wheezing heard. Musculoskeletal: Right lower leg: Edema present. Left lower leg: Edema present. Neurological: Mental Status: He is alert. No focal deficit. Remains stable from cardiac standpoint. Nothing to add at this point. Discharge plans noted. I spent 35 minutes reviewing the chart, taking the history, examining the patient, and documenting in the chart. * Lucille Alexandra, PT - 02/18/2023 9:29 AM CDT PT Re-Evaluation Discharge Recommendation: home with assistance No skilled P/T Activity Recommendation for map plotter: Up with modified independence using wh/walker 02/18/23 0900 Therapy Visit Ordering Provider Dr. Dupree PT Received On 02/18/23 Subjective RN ok'd therapy session this morning. Pt in room 506. Pt agreeable to therapy evaluation. Spoke with pt about rehab and pt reporting he wants to go to rehab because his daughter is going on vacation. Pt also reporting he had 2 falls after coming home from rehab - reports one time he walked away from his wh/walker because he was trying to clean up coffee that he had spilled and the other time he was going to sit in a chair and it moved and he fell to the floor. Reason for admission UPDATE 02/18/23: New orders received and CM called - [facility] requesting newtherapy evaluations for possible swing bed placement .............................Pt presented to the hospital with falls, malaise, and hyperglycemia. Pt with elevated troponin (+) NSTEMI ....................... Therapy orders: Eval and treat ..................... PMH: DM2, CAD, afib, COPD, L BBB, s/p AVR, CKD, CHF, EF 37%, HTN, HLD, severe pulmonary HTN, CVA Verified Two Patient Identifiers Yes Patient consents to therapy Yes Acute Inpatient PT Time Calculation PT Start Time 0856 PT Stop Time 09 PT Time Calculation (min) 33 min Precautions Instructed on Precautions Yes;Verbalizes understanding Other tele Home Living Home Living Comments Pt lives with his daughter and [...] of all IADLs. Pt was ambulating with 4ww in the house and cane when he would go out of the home. Pt reports multiple falls in the past year. DME: power recliner, cane, ww, riser. .................... Pt reporting after last admissionhe went to swing bed for 4 days and then was discharged home. Pt reports 2 falls since being discharged from rehab unit. Pt reports that his daughter is an OT in the [employer] system so sheis off for the summer and could provide 15/03 assist. Pain Pain No Activity Tolerance Endurance Endurance does not limit participation in activity Vision - Basic Assessment Current Vision No visual deficits Cognition Overall Cognitive Status WFL Arousal/Alertness Appropriate [...] intact Perseveration Not present Initiation Appears intact Sensation Light Touch No apparent deficits Overall Extremity Assessment Lower Extremity AROM/strength WFL throughout RLE Assessment RLE Assessment WFL LLE Assessment LLE Assessment WFL TRANSFERS Sit to Stand Modified independence Bed to Chair Modified independence Gait Gait Assistance Modified independence Assistive Device 2 Wheeled walker Distance Ambulated (ft) 200 ft Pattern WFL Balance Sitting - Static Independent Sitting - Dynamic Independent Standing - Static Modified independence Standing - Dynamic Modified independence;Support of both upper extremities Other (Comment) No LOB noted this session Assessment Personal Factors/Comorbidities Impacting Care 3-4 personal factors/comorbidities Examination of Body Systems Low (1-2 Elements) Objectives of Body Systems (No new deficits) Clinical Presentation of Patient Stable uncomplicated Complexity Level of Evaluation Low Prognosis Good Patient/Family Training Other (Comment) Spoke with pt and his daughter about therapy recs for home with assistance. Recommendation PT Recommendation Home with assistance;No skilled PT No Skilled PT No acute PT goals identified Plan Progress Discontinue PT PT - Next Appointment 02/18/23 If this is the last treatment note,it will serve as the discharge summary Yes End of Session End of Session Safety Chair alarm set/activated;Call light within reach;Nursing aware of session;Transfer status education Pt is a 67 year old male admitted to the hospital with NSTEMI. Pt presents with no functional deficits at this time. Pt able to complete all mobility independently this session. Pt with no continued acute skilled therapy needs at this time. P/T will plan to sign off as pt was independent this session. Please send new orders if pt has change in status or if new needs arise. Education: Primary Learners Name: Obie Sims Primary Language of learner: Japanese Patient was educated on transfers balance bed mobility therapy plan gait safety. Education was completed one to one verbal this date. Preference of learning new concepts one to one verbal Barriers to education this date were none. Response to education this date verbalized understanding demos with verbal cues demos adequately. * Tasneem Randolph, OT - 02/18/2023 9:25 AM CDT OT Re-Evaluation Discharge Recommendation: home with assistance Activity Recommendation for map plotter: Up with 1 2ww GB 02/18/23 0856 Therapy Visit OT Received On 02/18/23 Reason for admission UPDATE 02/18/23: New orders received and CM called - [facility] requesting newtherapy evaluations for possible swing bed placement .............................Pt presented to the hospital with falls, malaise, and hyperglycemia. Pt with elevated troponin (+) NSTEMI ....................... Therapy orders: Eval and treat ..................... PMH: DM2, CAD, afib, COPD, L BBB, s/p AVR, CKD, CHF, EF 37%, HTN, HLD, severe pulmonary HTN, CVA Ordering Provider Dr. Dupree Verified Two Patient Identifiers Yes Patient consents to therapy Yes Acute Inpatient OT Time Calculation OT Start Time 08 OT Stop Time 924 OT Time Calculation (min) 29 min Precautions Instructed on Precautions Yes;Verbalizes understanding Other tele Subjective Subjective RN ok'd therapy session this morning. Pt in room 506. Pt agreeable to therapy evaluation. Spoke with pt about rehab and pt reporting he wants to go to rehab because his daughter is going on vacation. Pt also reporting he had 2 falls after coming home from rehab - reports one time he walked away from his wh/walker because he was trying to clean up coffee that he had spilled and the other time he was going to sit in a chair and it moved and he fell to the floor. Home Living Home Living Comments Pt lives with his daughter and [...] of all IADLs. Pt was ambulating with 4ww in the house and cane when he would go out of the home. Pt reports multiple falls in the past year. DME: power recliner, cane, ww, riser. .................... Pt reporting after last admissionhe went to swing bed for 4 days and then was discharged home. Pt reports 2 falls since being discharged from rehab unit. Pt reports that his daughter is an OT in the [employer] system so sheis off for the summer and could provide 24/ assist. Pain Pain Patient does not offer or c/o pain Activity Tolerance Endurance Endurance does not limit participation in activity Vision - Basic Assessment Current Vision No [...] Extremity Assessment Upper Extremity AROM/strength WFL throughout Sensation Light Touch No apparent deficits ADL Additional Comments Pt independent to don/doff shoes, and pants seated in bedside chair. Pt Mod I oral hygiene, face washing, and brushing hair standing at sink aprox 10 min for ADL care at 2ww. Pt did not need to use restroom during eval, however able to demonstrate mock toileting this date with encouragement. Bed Mobility Other (Comment) Up in chair upon arrival Functional Transfers Sit to Stand Modified independence Bed to Chair Modified independence Other (Comment) Pt mod I amb with 2ww in room and hallway mocking household distances Balance Sitting - Static Independent Sitting - Dynamic Independent Standing - Static Modified independence Standing - Dynamic Modified independence;Support of both upper extremities Other (Comment) No LOB noted this session with 2ww Assessment Occupational Profile and History Complexity Low (Brief) Performance Deficit Level Low (1-3 deficits) Clinical Decision Making Low (no modifications) Complexity Level of Evaluation Low Prognosis Good Patient/Family Training Other (Comment) Spoke with pt and his daughter about therapy recs for home with assistance. Recommendation OT Recommendation Home with assistance;No skilled OT;Ambulate with nurse No Skilled OT No acute OT goals identified Plan Progress Discontinue OT OT - Next Appointment 02/18/23 If this is the last treatment note, it will serve as the discharge summary Yes End of Session End of Session Safety Chair alarm set/activated;Call light within reach;Nursing aware of session;Transfer status education OT will sign off on Pt at this time due to Pt appearing to be at prior level of independence; Pt inagreement. Please send new orders if a change in medical status occurs. Education: Primary Learners Name: Obie Sims Primary Language of learner: Japanese Patient educated on precautions transfers ADLs balance bed mobility equipment therapy plan gait safety joint protection. Education was completed one to one verbal hands-on this date. Preference of learning new concepts one to one verbal hands-on Barriers to education this date were anxious. Response to education this date verbalized understanding. * Aaliyah BartonD, [facility] - 02/18/2023 9:18 AM CDT Warfarin - Pharmacy Dosing Service Note Obie Sims is a 67-year-old male for which pharmacy has been consulted to dose warfarin for A.fib. Goal INR is 2-3. Warfarin Order Set Activated: Yes Warfarin Start Date: continuation from home Past Medical History: Diagnosis Date Abnormal ankle brachial index (STELLA) Acute on chronic heart failure, unspecified heart failure type ([facility]) Anxiety Aortic valve stenosis Arthritis Asthma, mild persistent 04/06/2021 Atrial fibrillation ([facility]) s/p PVI/[facility]ACA 10/2015 Bilateral leg pain Carotid disease, bilateral ([facility]) CHF (congestive heart failure) ([facility]) Claudication ([facility]) COPD (chronic obstructive pulmonary disease) ([facility]) Coronary artery disease Diabetes mellitus, type II ([facility]) Edema 04/19/2018 2+ pitting History of blood transfusion Hyperlipidemia Hypertension LV dysfunction Osteoarthritis PAD (peripheral artery disease) ([facility]) Pneumonia Restless leg syndrome S/P aortic valve replacement with bioprosthetic valve 2013 SOB (shortness of breath) Stroke ([facility]) Varicose veins of bilateral lower extremities with other complications Weight gain with edema Home warfarin dose: 5.5 mg po daily Bridging agent: none Vitamin K use: No; (if yes, indicate date, dose, and route) Diet: PO Recent Labs Lab 02/16/23 0454 02/17/23 0506 02/17/23 1146 02/18/23 0620 HGB 9.6* 9.1* -- 9.6* HCT 32.2* 31.0* -- 33.1* PLT 193 204 -- 219 AST -- -- 28 -- ALT -- -- 27 -- ALKP -- -- 177* -- ALB -- -- 3.1* -- Date INR Dose Received 02/16 1.8 - 02/17 1.6 6 mg 02/18 1.3 6 mg Drug interactions: Potential to increase INR: - Potential to decrease INR: - Potential to increase the risk of bleeding: aspirin, enoxaparin, sertraline Warfarin Sensitivity: moderate, based on the following risk factors: concomitant antiplatelet therapy, age 66-79, and diagnosis of heart failure. Hgb/Hct today are stable INR today is Subtherapeutic INR therapeutic on admission. Will give slightly higher than home dose. The plan is to give a 6 mg dose once tonight and recheck an INR in the morning to assist with subsequent dosing. Pharmacy will continue to monitor labs and notes daily, adjusting the dose as clinically appropriate. Thank you for the consult. Pharmacy to dose per Dr. Leia Presley, PharmD, [facility] Phone number: [phone] 02/18/2023 9:18 AM * Radha Clayton, PharmD - 02/17/2023 2:06 PM CDT Warfarin - Pharmacy Dosing Service Note Obie Sims is a 67-year-old male for which pharmacy has been consulted to dose warfarin for A.fib. Goal INR is 2-3. Warfarin Order Set Activated: Yes Warfarin Start Date: continuation from home Past Medical History: Diagnosis Date Abnormal ankle brachial index (STELLA) Acute on chronic heart failure, unspecified heart failure type ([facility]) Anxiety Aortic valve stenosis Arthritis Asthma, mild persistent 04/06/2021 Atrial fibrillation ([facility]) s/p PVI/[facility]ACA 10/2015 Bilateral leg pain Carotid disease, bilateral ([facility]) CHF (congestive heart failure) ([facility] Claudication ([facility]) COPD (chronic obstructive pulmonary disease) ([facility]) Coronary artery disease Diabetes mellitus, type II ([facility]) Edema 04/19/2018 2+ pitting History of blood transfusion Hyperlipidemia Hypertension LV dysfunction Osteoarthritis PAD (peripheral artery disease) ([facility]) Pneumonia Restless leg syndrome S/P aortic valve replacement with bioprosthetic valve 2013 SOB (shortness of breath) Stroke ([facility]) Varicose veins of bilateral lower extremities with other complications Weight gain with edema Home warfarin dose: 5.5 mg po daily Bridging agent: none Vitamin K use: No; (if yes, indicate date, dose, and route) Diet: PO Recent Labs Lab 02/16/23 0454 02/17/23 0506 02/17/23 1146 HGB 9.6* 9.1* -- HCT 32.2* 31.0* -- PLT 193 204 -- AST -- -- 28 ALT -- -- 27 ALKP -- -- 177* ALB -- -- 3.1* Date INR Dose Received 02/16 1.8 - 02/17 1.6 6 mg Drug interactions: Potential to increase INR: - Potential to decrease INR: - Potential to increase the risk of bleeding: aspirin, enoxaparin, sertraline Warfarin Sensitivity: moderate, based on the following risk factors: concomitant antiplatelet therapy, age 66-79, and diagnosis of heart failure. Hgb/Hct today are stable INR today is Subtherapeutic INR therapeutic on admission. Will give slightly higher than home dose. The plan is to give a 6 mg dose once tonight and recheck an INR in the morning to assist with subsequent dosing. Pharmacy will continue to monitor labs and notes daily, adjusting the dose as clinically appropriate. Thank you for the consult. Pharmacy to dose per Dr. Leia CLAYTON, PharmD Phone number: [phone] 02/17/2023 2:06 PM * Lulu Rizzo RN - 02/17/2023 1:19 PM CDT RN notified that patient's daughter was in patient's room had some questions about discharge planning. CM meet with patient and his daughter, Bonnie at bedside. Patient's daughter states patient recently had spent four days at [facility] Swing bed unit before he was discharge to home. States patient has had two falls since he been discharged. States she has concerns with patient discharging to home and would like a referral sent to [facility]. ESTIVEN doc halo pillowcase cleaner at [facility] unit to notify of referral. CM will continue to follow and assist with discharge planning. Lulu Rizzo RN CM 5 Cardiac Acid Bleacher ext. [phone] * Cara Mills RN - 02/17/2023 11:30 AM CDT 02/17/23 1129 Therapeutic Exercise Unable to Treat Other Therapeutic Exercise Comment Therapeutic Exercise Comment Cardiac rehab available for education and activity as appropriate. If desired please order our services. * Daniel Dupree MD - 02/17/2023 10:58 AM CDTSummary: Progress Note [facility] Hospitalist Progress Note: CC: Follow up on elevated Trop SUBJECTIVE: Patient was seen and examined at the bedside, feels good, denies chest pain, SOB or lower extremityswelling. No new complains, no significant overnight events. ROS 10 points ROS performed and otherwise unremarkable except as mentioned above. OBJECTIVE Blood pressure 122/66, pulse 82, temperature 98.1 ??F (36.7 ??C), temperature source Oral, resp. rate 18, height 5' 6 (1.676 m), weight 91.2 kg (201 lb 1 oz), SpO2 96 %. Physical Exam General: appears to be in no acute distress. Head: R. Superficial wound on the forehead. Eyes: PERRL, EOMI, vision is grossly normal, no scleral icterus. Ears: hearing grossly intact, atraumatic external ear Throat: Oropharynx without erythema or tonsillar exudate. Moist Mucous Membranes . Neck: Symmetric, trachea midline, supple, no thyroidmegaly. Lungs: clear to auscultation bilaterally Heart: regular rate and rhythm, S1, S2 normal, no murmur, click, rub or gallop Abdomen: soft, non-tender. Bowel sounds normal. No masses or hepatosplenomegaly. Skin: dry coarse skin of b/l LE noted, Neurologic: Alert and Oriented x3, no focal deficits. Sensation grossly normal. Psych: Appropriate mood and affect. LABS:. Recent Labs 02/16/234 02/17/23 0506 WBC 13.19* 10.40 HGB 9.6* 9.1* HCT 32.2* 31.0* MCV 80.1 80.7 PLT 193 204 RBC 4.02* 3.84* Recent Labs Lab 02/16/23 0454 02/17/23 0506 NA 134* 131* K 3.8 3.9 CL 99 97* CO2 27.2 26.9 AGAP 7.8 7.1 BUN 76* 64* CR 1.90* 1.68* GLU 216* 115* CA 9.2 9.5 Recent Labs Lab 02/16/23 0454 INR 1.8* Intake/Output Summary (Last 24 hours) at 02/17/2023 1058 Last data filed at 02/17/2023 0800 Gross per 24 hour Intake 1360 ml Output 2075 ml Net -715 ml RADIOLOGY : REVIEWED MEDICATIONS Scheduled medications allopurinol 300 mg Oral Daily aspirin 81 mg Oral Daily atorvastatin 80 mg Oral Nightly at bedtime carvedilol 3.125 mg Oral BID empagliflozin 25 mg Oral Daily enoxaparin 40 mg Subcutaneous Nightly (enoxaparin) fluticasone 1 puff Inhalation 2 times daily furosemide 40 mg Oral Daily gabapentin 400 mg Oral Daily gabapentin 800 mg Oral nightly insulin glargine 15 Units Subcutaneous Nightly at bedtime insulin lispro 0-8 Units Subcutaneous 4x Daily AC and at bedtime ipratropium-albuterol 1 puff Inhalation 4x daily - RT lidocaine 1 patch Transdermal Q24H pantoprazole EC 40 mg Oral Daily rOPINIRole 4 mg Oral Nightly at bedtime sertraline 50 mg Oral Daily spironolactone 25 mg Oral Daily warfarin (COUMADIN) pharmacy to dose Oral See Admin Instructions Infusion PRN acetaminophen, ondansetron ASSESSMENT /PLAN 67 y/o M w/ hx of Type 2 DM, CAD, COPD, LBBB, s/p mechanical valve in 2021 and bioprosthetic AVRin 2013, A-fib on Warfarin, Chronic HFrEF (LVEF 37%), Severe Pulmonary HTN, HLD, hx of CVA, and CKD, who presented to ED w/ falls, malaise, and hyperglycemia. Pt recently discharged from [facility] on 02/09after admission for falls and found to have rib fractures and discharged to swing unit. He was found to have elevated Trop and was transferred to [facility] for the same. CTH and CT cervical spine were unremarkable. Elevated Trop, flat, downtrending, no convicing symptomatology to suggest ACS CAD --C in Aug 2020 w/ proximal LAD 60% stenosis, and ostial RCA 50% stenosis. Managed medically. -- Continue aspirin, Coreg, and atorvastatin. -- Seen by cardiology, believes elevated trop is secondary to demand ischemia from fall and ALICIA --pt w/o chest pain. EKG w/ LBBB which is known. Fall: no prodrome symptoms. PT/OT eval. CT head and cervical spine neg. Get orthostatic vitals Leukocytosis, resolved, afebrile --Cultures with no growth till date, A neg at OSH. CXR reportedly normal. Monitor off antibiotics Chronic HFrEF Aortic stenosis s/p MVR in 1999 & bioprosthetic valve (2013) Severe pulm hypertension Hypertension Hyperlipidemia --Echo in December 2022 w/ mild LVH, EF 37%, RV mod dysfunction. --Renal function much better today, start on lasix 40 mg daily and aldactone 25 mg daily, continue to hold ACEI for now. Patient looks euvolemic today, monitor renal function. --cont coreg, jardiance. Atrial Fibrillation: cont Coreg. Started on warfarin PTD with INR monitoring. ALICIA on CKD 4: Diabetes Hyperglycemia --cont lantus QHS, SSI w/ accuchecks ACHS. Get A1c, Increase lantus to 20 units nightly --Baseline Cr 1.8-2.2. COPD: Cont home inhalers. Chronic Anemia: check iron stores and vitamin b12. Code status: Full Code I personally spent a total of 40 minutes on the day of the encounter. This includes [id number] and yaz-zvrs-bz-face time I provided on the day of the encounter & excludes time spent performing separately reportable services. Daniel Dupree MD 10:58 AM 02/17/2023 * Julia Maurer PA-C - 02/17/2023 9:30 AM CDT Obie Sims is a 67-year-old male patient. 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 Edema is at baseline. States that his left upper arm is sore and feels bruised. ASSESSMENT/PLAN: 1. Elevated troponin-not suggestive of ACS. May be secondary to demand ischemia in the setting of fall and renal insufficiency. Continue medical therapy. Remains on aspirin, beta-kim, statin. No further cardiac testing planned. 2. Atrial fibrillation-on anticoagulation for stroke prophylaxis, in sinus rhythm on telemetry. 3. Aortic stenosis with previous mechanical AVR and subsequent bioprosthetic AVR 4. Chronic heart failure with reduced EF (37%)- volume status remains stable. On appropriate beta-kim, Jardiance, Lasix, spironolactone. Metolazone held. Renal function improving. Principal Problem: NSTEMI (non-ST elevated myocardial infarction) ([facility]) SNOMED CT(R): MYOCARDIAL INFARCTION Current Facility-Administered Medications Medication Dose Route Frequency Provider Last Rate Last Admin acetaminophen (TYLENOL) tablet 650 mg 650 mg Oral Q6H PRN Segundo Montana MD 650 mg at 02/17/23 0335 allopurinol (ZYLOPRIM) tablet 300 mg 300 mg Oral Daily Segundo Montana MD 300 mg at 02/16/23940 aspirin chewable tablet 81 mg 81 mg Oral Daily Segundo Montana MD 81 mg at 02/16/23940 atorvastatin (LIPITOR) tablet 80 mg 80 mg Oral Nightly at bedtime Segundo Montana MD 80 mg at 02/16/232123 carvedilol (COREG) tablet 3.125 mg 3.125 mg Oral BID Segundo Montana MD 3.125 mg at 02/16/232124 empagliflozin (JARDIANCE) tablet 25 mg 25 mg Oral Daily Segundo Montana MD 25 mg at 02/16/23941 enoxaparin (LOVENOX) 40 MG/0.4ML syringe 40 mg 40 mg Subcutaneous Nightly (enoxaparin) Segundo Montana MD 40 mg at 02/16/232126 fluticasone (FLOVENT HFA) 110 MCG/ACT inhaler 1 puff 1 puff Inhalation 2 times daily Segundo Montana MD 1 puff at 02/16/232128 furosemide (LASIX) tablet 40 mg 40 mg Oral Daily Daniel Dupree MD gabapentin (NEURONTIN) capsule 400 mg 400 mg Oral Daily Segundo Montana MD 400 mg at 02/16/23940 gabapentin (NEURONTIN) capsule 800 mg 800 mg Oral nightly Daniel Dupree MD 800 mg at 02/16/232124 insulin glargine (LANTUS) injection 15 Units 15 Units Subcutaneous Nightly at bedtime Segundo Montana MD 15 Units at 02/16/230 insulin lispro (HUMALOG) injection 0-8 Units 0-8 Units Subcutaneous 4x Daily AC and at bedtime Segundo Montana MD 5 Units at 02/17/23 0842 ipratropium-albuterol (COMBIVENT RESPIMAT) 20-100 MCG/ACT inhaler 1 puff 1 puff Inhalation 4x daily- RT Segundo Montana MD 1 puff at 02/16/239 lidocaine 4 % patch 1 patch 1 patch Transdermal Q24H Daniel Dupree MD 1 patch at 02/16/23 1319 ondansetron (ZOFRAN) injection 4 mg 4 mg Intravenous Q8H PRN Segundo Montana MD pantoprazole EC (PROTONIX) tablet 40 mg 40 mg Oral Daily Segundo Montana MD 40 mg at 02/16/23 0941 rOPINIRole (REQUIP) tablet 4 mg 4 mg Oral Nightly at bedtime Segundo Montana MD 4 mg at 02/16/232123 sertraline (ZOLOFT) tablet 50 mg 50 mg Oral Daily Segundo Montana MD 50 mg at 02/16/23 0941 spironolactone (ALDACTONE) tablet 25 mg 25 mg Oral Daily Daniel Dupree MD warfarin (COUMADIN) pharmacy to dose placeholder Oral See Admin Instructions Daniel Dupree MD Filed Vitals: 02/16/23 0802 02/16/23 1532 02/16/23200402/17/23 0818 BP: 125/57 118/59 134/69 122/66 Pulse: 84 73 81 82 Resp: 18 18 Temp: 98.1 ??F (36.7 ??C) 97.5 ??F (36.4 ??C) 98.1 ??F (36.7 ??C) TempSrc: Oral Oral SpO2: 98% 95% 100% 96% Weight: Height: Intake/Output Summary (Last 24 hours) at 02/17/2023 0930 Last data filed at 02/17/2023 0800 Gross per 24 hour Intake 1360 ml Output 2075 ml Net -715 ml Recent Results (from the past 24 hour(s)) TROPONIN, QUANT Collection Time: 02/16/23 11:12 AM Result Value Ref Range TROPONIN I HIGH SENSITIVITY 97 (H) 0 - 78 ng/L POCT glucose Collection Time: 02/16/23 11:19 AM Result Value Ref Range GLUCOSE POC 249 (H) 70 - 109 TROPONIN, QUANT Collection Time: 02/16/23 4:25 PM Result Value Ref Range TROPONIN I HIGH SENSITIVITY 87 (H) 0 - 78 ng/L POCT glucose Collection Time: 02/16/23 4:39 PM Result Value Ref Range GLUCOSE POC 237 (H) 70 - 109 POCT glucose Collection Time: 02/16/23 8:43 PM Result Value Ref Range GLUCOSE POC 286 (H) 70 - 109 CBC W/DIFF AUTOMATED Collection Time: 02/17/23 5:06 AM Result Value Ref Range WBC 10.40 4.00 - 10.80 x10'3/uL RBC 3.84 (L) 4.50 - 6.10 x10'6/uL HGB 9.1 (L) 13.0 - 18.0 G/DL HCT 31.0 (L) 37.0 - 52.0 % MCV 80.7 78.0 - 100.0 FL MCH 23.7 (L) 27.0 - 31.0 PG MCHC 29.4 (L) 33.0 - 36.0 G/DL RDW 20.5 (H) 11.5 - 14.5 % PLT 204 150 - 350 x10'3/uL MPV 10.6 (H) 7.4 - 10.4 FL ABS. NEUTROPHILS 7.01 1.60 - 8.30 x10'3/uL ABS. LYMPHOCYTES 1.61 0.80 - 4.70 x10'3/uL ABS. MONOCYTES 1.15 0.00 - 1.50 x10'3/uL ABS. EOSINOPHILS 0.53 (H) 0.00 - 0.40 x10'3/uL ABS. BASOPHILS 0.06 0.00 - 0.20 x10'3/uL ABS. IMMATURE GRANULOCYTES 0.04 (H) 0.00 - 0.03 x10'3/uL ABS. NUCLEATED RBC'S 0.00 0.0 x10'3/uL BASIC METABOLIC PANEL Collection Time: 02/17/23 5:06 AM Result Value Ref Range SODIUM S/P/B 131 (L) 136 - 145 MMOL/L POTASSIUM S/P/B 3.9 3.5 - 5.1 MMOL/L CHLORIDE S/P/B 97 (L) 98 - 107 MMOL/L CO2 26.9 21.0 - 32.0 MMOL/L GLUCOSE 115 (H) 74 - 106 MG/DL BUN 64 (H) 7 - 18 MG/DL CREATININE S/P/B 1.68 (H) 0.70 - 1.30 MG/DL CALCIUM S/P/B 9.5 8.5 - 10.1 MG/DL ANION GAP 7.1 5.0 - 15.0 MMOL/L OSMOLALITY (CALC) 291 MOSM/KG GFR ESTIMATE 44 (L) >90 ML/MIN/1.73 M2 GFR NOTES GFR REFERENCES: MAGNESIUM Collection Time: 02/17/23 5:06 AM Result Value Ref Range MAGNESIUM 2.7 (H) 1.6 - 2.6 MG/DL HEMOGLOBIN, GLYCOSYLATED Collection Time: 02/17/23 5:06 AM Result Value Ref Range HGB A1C 8.0 (H) <5.7 % [address]ATED AVE GLUCOSE 183 (H) 74 - 114 MG/DL POCT glucose Collection Time: 02/17/23 8:36 AM Result Value Ref Range GLUCOSE POC 276 (H) 70 - 109 Results for orders placed or performed during the hospital encounter of 01/26/23 PRO-BRAIN NATRIURETIC PEPTIDE Result Value Ref Range PRO-B TYPE NATRIURETIC PEPTIDE 3,539 (H) <125 PG/ML Recent Labs Lab 02/16/23 0454 02/16/23 1112 02/16/23 1625 TROP 106* 97* 87* Review of Systems Constitutional: Positive for fatigue and weakness. Respiratory: Negative for new or significant shortness of breath. Cardiovascular: Positive for leg swelling (Unchanged).Negative for chest pain. Gastrointestinal: Negative for nausea. Physical Exam Constitutional: General: He is not in acute distress. Appearance: He is ill-appearing. Cardiovascular: Rate and Rhythm: Normal rate and regular rhythm. Pulmonary: Effort: No respiratory distress. Musculoskeletal: Right lower leg: Edema present. Left lower leg: Edema present. Neurological: Mental Status: He is alert. 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 Pandey I spent 14 minutes today reviewing the patient's medical record, obtaining history, performing an exam, and documenting in the medical record. Cosigned by Amauri Pandey MD at 02/17/2023 10:19 AM CDT Associated attestation - Amauri Pandey MD - 02/17/2023 10:19 AM CDT I, AMAURI PANDEY MD, have seen and examined the patient and discussed the management with the Mid-Level Provider. I reviewed the MLP's note and agree with the findings and plan of care, except as I have documented. Plan of care developed under my direct supervision. Chart reviewed. Agree with PA assessment/management. * Lulu Rizzo RN - 02/17/2023 9:22 AM CDT 02/17/23 4241 Interdisciplinary Group Conference Team Members Present Physician;Case/Care management Physician present for group conference Dr. Addis Dupree -[facility] Barriers to Discharge Barriers Not Medically ready Not Medically ready follow up Start on oral lasix today and monitor renal function. Possible ready for discharge tomorrow. Patient live with daughter and is current with [facility]. [facility] provides home oxygen. CM following for discharge needs. Lulu Rizzo RN CM 5 Cardiac Acid Bleacher ext. [phone] * Daniel Dupree MD - 02/16/2023 12:49 PM CDTSummary: Progress Note--Same day non-billable [facility] Hospitalist Progress Note: CC: Follow up on elevated Trop SUBJECTIVE: Patient was seen and examined at the bedside, feels good, denies chest pain, SOB or lower extremityswelling. Recently discharged from here to swing bed., Had a mechanical fall, denies passing out. Denies palpitation, no other complains. ROS 10 points ROS performed and otherwise unremarkable except as mentioned above. OBJECTIVE Blood pressure 125/57, pulse 84, temperature 98.1 ??F (36.7 ??C), temperature source Oral, resp. rate 18, height 5' 6 (1.676 m), weight 91.2 kg (201 lb 1 oz), SpO2 98 %. Physical Exam General: appears to be in no acute distress. Head: R. Superficial wound on the forehead. Eyes: PERRL, EOMI, vision is grossly normal, no scleral icterus. Ears: hearing grossly intact, atraumatic external ear Throat: Oropharynx without erythema or tonsillar exudate. Moist Mucous Membranes . Neck: Symmetric, trachea midline, supple, no thyroidmegaly. Lungs: clear to auscultation bilaterally Heart: regular rate and rhythm, S1, S2 normal, no murmur, click, rub or gallop Abdomen: soft, non-tender. Bowel sounds normal. No masses or hepatosplenomegaly. Skin: dry coarse skin of b/l LE noted, Neurologic: Alert and Oriented x3, no focal deficits. Sensation grossly normal. Psych: Appropriate mood and affect. LABS:. Recent Labs 02/16/23453 WBC 13.19* HGB 9.6* HCT 32.2* MCV 80.1 PLT 193 RBC 4.02* Recent Labs Lab 02/16/23453 NA 134* K 3.8 CL 99 CO2 27.2 AGAP 7.8 BUN 76* CR 1.90* GLU 216* CA 9.2 Recent Labs Lab 02/16/23 0454 INR 1.8* Intake/Output Summary (Last 24 hours) at 02/16/2023 1249 Last data filed at 02/16/2023 0802 Gross per 24 hour Intake 360 ml Output 1000 ml Net -640 ml RADIOLOGY : REVIEWED MEDICATIONS Scheduled medications allopurinol 300 mg Oral Daily aspirin 81 mg Oral Daily atorvastatin 80 mg Oral Nightly at bedtime carvedilol 3.125 mg Oral BID empagliflozin 25 mg Oral Daily enoxaparin 40 mg Subcutaneous Nightly (enoxaparin) fluticasone 1 puff Inhalation 2 times daily furosemide 40 mg Oral BID gabapentin 400 mg Oral Daily gabapentin 800 mg Oral nightly insulin glargine 15 Units Subcutaneous Nightly at bedtime insulin lispro 0-8 Units Subcutaneous 4x Daily AC and at bedtime ipratropium-albuterol 1 puff Inhalation 4x daily - RT lidocaine 1 patch Transdermal Q24H metOLazone 2.5 mg Oral Daily pantoprazole EC 40 mg Oral Daily rOPINIRole 4 mg Oral Nightly at bedtime sertraline 50 mg Oral Daily Infusion PRN acetaminophen, ondansetron ASSESSMENT /PLAN 67 y/o M w/ hx of Type 2 DM, CAD, COPD, LBBB, s/p mechanical valve in 2021 and bioprosthetic AVRin 2013, A-fib on Warfarin, Chronic HFrEF (LVEF 37%), Severe Pulmonary HTN, HLD, hx of CVA, and CKD, who presented to ED w/ falls, malaise, and hyperglycemia. [facility] [facility] on 02/09after admission for falls and found to have rib fractures and discharged to swing unit. He was found to have elevated Trop and was transferred to [facility] for the same. CTH and CT cervical spine were unremarkable. Elevated Trop, flat, downtrending, no convicing symptomatology to suggest ACS CAD --LHC in Aug 2020 w/ proximal LAD 60% stenosis, and ostial RCA 50% stenosis. Managed medically. -- Continue aspirin, Coreg, and atorvastatin. -- consulted cardiology --pt w/o chest pain. EKG w/ LBBB which is known. Fall: no prodrome symptoms. PT/OT eval. CT head and cervical spine neg. Get orthostatic vitals Leukocytosis: will get blood cultures/procal. UA neg at OSH. CXR reportedly normal. Monitor off antibiotics Chronic HFrEF Aortic stenosis s/p MVR in 1999 & bioprosthetic valve (2014) Severe pulm hypertension Hypertension Hyperlipidemia --Echo in December 2022 w/ mild LVH, EF 37%, RV mod dysfunction. --will continue to hold lasix/Aldacone as pt appears dry. --cont coreg, jardiance. Atrial Fibrillation: cont Coreg. Will hold further warfarin pending cardiology eval. CKD 4: Baseline Cr 1.8-2.2. Diabetes Hyperglycemia --cont lantus QHS, SSI w/ accuchecks ACHS. Get A1c COPD: Cont home inhalers. Chronic Anemia: check iron stores and vitamin b12. Code status: Full Code I personally spent a total of 40 minutes on the day of the encounter. This includes cykp-rn-gaml and nth-ohjz-qd-face time I provided on the day of the encounter & excludes time spent performing separately reportable services. Daniel Dupree MD 12:49 PM 02/16/2023 * Lulu Rizzo RN - 02/16/2023 10:19 AM CDT 02/17/23 0650 Interdisciplinary Group Conference Team Members Present Physician;Case/Care management Physician present for group conference Dr. Addis Dupree- [facility] Barriers to Discharge Barriers Not Medically ready Not Medically ready follow up Elevated tropronine, down trending. Cardiology following, recs pending. Possible discharge tomorrow. Lulu Rizzo RN CM 5 Cardiac Acid Bleacher ext. [phone] * Lucille Alexandra PT - 02/16/2023 9:11 AM CDT PT Initial Evaluation Discharge Recommendation: home with assistance No skilled P/T Activity Recommendation for map plotter: Up with modified independence using wh/walker 02/16/23 0900 Therapy Visit Ordering Provider Dr. Montana PT Received On 06/27/23 Subjective RN ok'd therapy session this morning. Pt in room 506. Pt supine in bed with no bed alarmon at start of session. Pt agreeable to therapy evaluation. Reason for admission Pt presented to the hospital with falls, malaise, and hyperglycemia. Pt with elevated troponin (+) NSTEMI ....................... Therapy orders: Eval and treat ..................... PMH: DM2, CAD, afib, COPD, L BBB, s/p AVR, CKD, CHF, EF 37%, HTN, HLD, severe pulmonary HTN,CVA Verified Two Patient Identifiers Yes Patient consents to therapy Yes Acute Inpatient PT Time Calculation PT Start Time 0856 PT Stop Time 0911 PT Time Calculation (min) 15 min Precautions Instructed on Precautions Yes;Verbalizes understanding Other tele Home Living Home Living Comments Pt lives with his daughter and [...] of all IADLs. Pt was ambulating with 4ww in the house and cane when he would go out of the home. Pt reports multiple falls in the past year. DME: power recliner, cane, ww, riser. .................... Pt reporting after last admissionhe went to swing bed for 4 days and then was discharged home. Pt reports 2 falls since being discharged from rehab unit. Pt reports that his daughter is an OT in the [employer] system so sheis off for the summer and coul provide 24/7 assist. Pain Pain No Activity Tolerance Endurance Endurance does not limit participation in activity Vision - Basic Assessment Current Vision No visual deficits Cognition Overall Cognitive Status WFL Arousal/Alertness Appropriate responses to stimuli Attention Span Appears intact Memory Appears intact Orientation Level Oriented X4 Following Commands Follows all commands and directions without difficulty Safety Judgment Good awareness of safety precautions Awareness of Errors Good awareness of errors made Deficits Fully aware of deficits Problem Solving Able to problem solve independently Comments Pt drowsy but easily arousable and able to participate in therapy session without difficulty. Motor Planning Appears intact Perseveration Not present Initiation Appears intact Sensation Light Touch No apparent deficits Overall Extremity Assessment Lower Extremity AROM/strength WFL throughout RLE Assessment RLE Assessment WFL LLE Assessment LLE Assessment WFL Bed Mobility Supine to Sit Independent TRANSFERS Sit to Stand Modified independence Bed to Chair Modified independence Gait Gait Assistance Modified independence Assistive Device 2 Wheeled walker Distance Ambulated (ft) 100 ft Pattern WFL Balance Sitting - Static Independent Sitting - Dynamic Independent Standing - Static Modified independence Standing - Dynamic Modified independence Other (Comment) No LOB noted this session Assessment Personal Factors/Comorbidities Impacting Care 3-4 personal factors/comorbidities Examination of Body Systems Low (1-2 Elements) Objectives of Body Systems (No new deficits) Clinical Presentation of Patient Stable uncomplicated Complexity Level of Evaluation Low Prognosis Good Recommendation PT Recommendation Home with assistance;No skilled PT No Skilled PT No acute PT goals identified Plan Progress Discontinue PT PT - Next Appointment 02/16/23 If this is the last treatment note,it will serve as the discharge summary Yes End of Session End of Session Safety Chair alarm set/activated;Call light within reach;Nursing aware of session;Transfer status education Pt is a 67 year old male admitted to the hospital with NSTEMI. Pt presents with no functional deficits at this time. Pt able to complete all mobility independently this session. Pt with no continued acute skilled therapy needs at this time. P/T will plan to sign off as pt was independent this session. Please send new orders if pt has change in status or if new needs arise. Education: Primary Learners Name: Obie Sims Primary Language of learner: Japanese Patient was educated on transfers balance bed mobility therapy plan gait safety. Education was completed one to one verbal this date. Preference of learning new concepts one to one verbal Barriers to education this date were none. Response to education this date verbalized understanding demos with verbal cues demos adequately. * Gill Sanchez, OT - 02/16/2023 9:11 AM CDT OT Initial Evaluation Discharge Recommendation: home with assistance ; No skilled OT Activity Recommendation for map plotter: modified independence using 2ww ; defer activity to nursing staff *up to chair for all meals ; ambulate to restroom for toileting and in room/rodríguez as tolerated 02/16/23 1300 Therapy Visit OT Received On 02/16/23 OT Evaluation Completed on 02/16/23 Reason for admission Pt presented to the hospital with falls, malaise, and hyperglycemia. Pt with elevated troponin (+) NSTEMI ....................... Therapy orders: Eval and treat ..................... PMH: DM2, CAD, afib, COPD, L BBB, s/p AVR, CKD, CHF, EF 37%, HTN, HLD, severe pulmonary HTN,CVA Ordering Provider Dr. Montana Verified Two Patient Identifiers Yes Patient consents to therapy Yes Acute Inpatient OT Time Calculation OT Start Time 0857 OT Stop Time 0911 OT Time Calculation (min) 14 min Precautions General Precautions Fall Risk Instructed on Precautions Yes;Verbalizes understanding Other tele Subjective Subjective RN ok'd therapy session this morning. Pt in room 506. Pt supine in bed with no bed alarmon at start of session. Pt agreeable to therapy evaluation. Home Living Home Living Comments Pt lives with his daughter and [...] of all IADLs. Pt was ambulating with 4ww in the house and cane when he would go out of the home. Pt reports multiple falls in the past year. DME: power recliner, cane, ww, riser. .................... Pt reporting after last admissionhe went to swing bed for 4 days and then was discharged home. Pt reports 2 falls since being discharged from rehab unit. Pt reports that his daughter is an OT in the [employer] so sheis off for the summer and could provide 24/7 assist. Pain Pain No Activity Tolerance Endurance Endurance does not limit participation in activity Vision - Basic Assessment Current Vision No visual deficits Cognition Overall Cognitive Status WFL Arousal/Alertness Appropriate responses to stimuli Attention Span Appears intact Memory Appears intact Orientation Level Oriented X4 Following Commands Follows all commands and directions without difficulty Safety Judgment Good awareness of safety precautions Awareness of Errors Good awareness of errors made Deficits Fully aware of deficits Problem Solving Able to problem solve independently Comments Pt drowsy but easily arousable and able to participate in therapy session without difficulty. Motor Planning Appears intact Perseveration Not present Initiation Appears intact Overall Extremity Assessment Upper Extremity BUE AROM/strength WFL throughout RUE Assessment RUE Assessment WFL LUE Assessment LUE Assessment WFL Hand Function Gross Grasp Functional Coordination Functional Sensation Light Touch No apparent deficits ADL Additional Comments independent to don/doff socks seated EOB; indep to complete self feeding seatedin chair; pt declined further ADLs Bed Mobility Supine to Sit Independent Functional Transfers Sit to Stand Modified independence Bed to Chair Modified independence (2ww) Functional Mobility pt mod indep with 2ww in room / rodríguez mocking household distances Balance Sitting - Static Independent Sitting - Dynamic Independent Standing - Static Modified independence Standing - Dynamic Modified independence;Support of both upper extremities Other (Comment) No LOB noted this session; balance improves with 2ww use Assessment Occupational Profile and History Complexity Low (Brief) Performance Skills Deficits Other (Comment) (no acute functional deficits noted - appears baseline) Performance Deficit Level Low (1-3 deficits) Clinical Decision Making Low (no modifications) Complexity Level of Evaluation Low Prognosis Good OT Assess/Eval Other (Comment) Upon OT assessment this date, patient demonstrates ability to complete ADLs and functional mobility with use of 2ww with modified independence overall. Pt appears at baseline functional status at this time and has no acute skilled OT needs. Recommend patient has assist from family as needed upon return home and continue to use walker for mobility. OT will sign off. Patient/Family Training Other (Comment) pt educated on safety precautions, therapy plan/recs and fall prevention; pt verbalized understanding Recommendation OT Recommendation Home with assistance;No skilled OT;Ambulate with nurse OT Equipment Recommended Currently has DME in Place No Skilled OT No acute OT goals identified Plan Progress Discontinue OT OT - Next Appointment 02/16/23 If this is the last treatment note, it will serve as the discharge summary Yes End of Session End of Session Safety Chair alarm set/activated;Call light within reach;Nursing aware of session;Transfer status education End of Session Comment pt seated in chair, all needs in reach Education: Primary Learners Name: Obie Sims Primary Language of learner: Japanese Patient was educated on precautions exercises transfers ADLs balance equipment therapy plan safety. Education was completed one to one verbal demonstration this date. Preference of learning new concepts one to one verbal demonstration Barriers to education this date were fatigue. Response to education this date verbalized understanding demos with verbal cues demos adequately. * Deloris Barroso RN - 02/16/2023 8:57 AM CDT Spoke to daughter, Bonnie. Patient lives in [place] with daughter. Was dc'd on [facility] from [facility]. [facility] was setup to see, ref was faxed. daughter has been assistingwith adl's. Has cane, walker at home. [facility]. On disability. Has not been driving last month.PCP is Dr Nkechi Infante. Daughter will transport [place] 02/16/23 0862 Referral Data Source of Information Other Family Members (daughter Bonnie) Patient Information Primary Caregiver Family Current living Situation Children (lives in [place] with daughter) Type of Residence Private residence Support System Immediate family Are you employed? Disabled Recent Hospitalization Recent Hospitalization within 30 days Yes Legal Information Guardianship Documentation Not applicable Baseline ADL's Functional Status Moderate assistance (has not been driving in last month, daughter has been assisting with adl's.) Active DME Oxygen;Cane;Walker Behavior Oriented;Cooperative Communication Talks Current Services Being Provided Home Health snf;Physical therapy;Occupational therapy Psychosocial Need Indicator Mental health concerns No Diagnosis/prognosis resulting in poor adjustment or coping with illness No Diagnosis/prognosis with anticipated outcome of major lifestyle changes, including change in roasterman living environment No Complex Family concerns No Abuse and/or neglect of elder, adult or child No Psychiatric and/or substance abuse issues affecting current hospitalization No Homelessness with lack of safe discharge environment No Need for guardianship petition No Chaptered patient No DC screening tool This is a screening tool it does not take the place of a physical or occupational therapy evaluation. The screening is to screen the patient for what services and destination would be beneficial for patient for next level of care Conversation with the patient/family Discharge to Prior Residence/Living Situation - No New Needs Identified - Will continue to Assess (unknown at this time) Adequate Resources Available Adequate Resources Yes Anticipated DC Plan Support Systems Children Type of Residence Rehab facility Assistance Needed No Patient expects to be discharged to: Rehab facility documented in this encounter H&P Notes * Segundo Montana MD - 02/16/2023 4:32 AM CDT [facility] Hospitalist Admission H&P Attending Provider: Segundo Montana MD PCP: MEGAN INFANTE MD Obie Sims is an 67-year-old male. Reason for Admission: NSTEMI (non-ST elevated myocardial infarction) ([facility]) HPI: Obie Sims is a 67 y/o M w/ hx of Type 2 DM, CAD, COPD, LBBB, s/p mechanical valve in 2021 and bioprosthetic AVR in 2013, A-fib on Warfarin, Chronic HFrEF (LVEF 37%), Severe Pulmonary HTN, HLD, hx of CVA, and CKD, who presented to ED w/ falls, malaise, and hyperglycemia. Pt recently discharged from [facility] on 02/09 after admission for falls and found to have rib fractures and discharged to swing unit. Pt presented to OSH, HDS , Labs w/ WBC 13.8, hbg 10.3, plt 214, Na 123, K 4.2, Co2 27, Bun 81, Cr 2.2, glucose >500, LA 1.4, Lfts wnL, and troponin 100.3. INR 1.6. UA negative. Utox + opioids. EKGw/ LBBB which is chronic. CTH and CT cervical spine were unremarkable. Due to troponin elevation, pt transferred to [facility] for further eval. Pt reports he fell as his legs gave out. Denies any dizziness, chest pain, palpitations prior to the fall. Review of Systems All pertinent positives and negatives as per HPI above. All remaining systems reviewed and are negative. Physical Exam: General: appears to be in no acute distress. Head: R. Superficial wound on the forehead. Eyes: PERRL, EOMI, vision is grossly normal, no scleral icterus. Ears: hearing grossly intact, atraumatic external ear Throat: Oropharynx without erythema or tonsillar exudate. Moist Mucous Membranes . Neck: Symmetric, trachea midline, supple, no thyroidmegaly. Lungs: clear to auscultation bilaterally Heart: regular rate and rhythm, S1, S2 normal, no murmur, click, rub or gallop Abdomen: soft, non-tender. Bowel sounds normal. No masses or hepatosplenomegaly. Skin: dry coarse skin of b/l LE noted, Neurologic: Alert and Oriented x3, no focal deficits. Sensation grossly normal. Psych: Appropriate mood and affect. Past Medical History: Diagnosis Date Abnormal ankle brachial index (STELLA) Acute on chronic heart failure, unspecified heart failure type (CMS/HCC) Anxiety Aortic valve stenosis Arthritis Asthma, mild persistent 04/06/2021 Atrial fibrillation (CMS/HCC) s/p PVI/WACA 10/2015 Bilateral leg pain Carotid disease, bilateral (CMS/HCC) CHF (congestive heart failure) (CMS/HCC) Claudication ([facility]/HCC) COPD (chronic obstructive pulmonary disease) ([facility]/HCC) Coronary artery disease Diabetes mellitus, type II (CMS/HCC) Edema 04/19/2018 2+ pitting History of blood transfusion Hyperlipidemia Hypertension LV dysfunction Osteoarthritis PAD (peripheral artery disease) (CMS/HCC) Pneumonia Restless leg syndrome S/P aortic valve replacement with bioprosthetic valve 2013 1999, 2013 SOB (shortness of breath) Stroke ([facility]/HCC) Varicose veins of bilateral lower extremities with other complications Weight gain with edema Allergies: No Known Allergies Social History Tobacco Use Smoking status: Former Smokeless tobacco: Former Types: Chew Substance Use Topics Alcohol use: Yes Comment: 6 beers per week Social History Social History Narrative Not on file Past Surgical History: Procedure Laterality Date APPENDECTOMY CARDIAC VALVE REPLACEMENT 1999 CARDIAC VALVE REPLACEMENT 2013 CARDIOVERSION EXTERNAL 10/01/2015 CARDIOVERSION EXTERNAL 04/14/2012 COLONOSCOPY N/A 03/18/2021 COLONOSCOPY (Incomplete) performed by Kilo Navarro MD at [facility] OR COLONOSCOPY N/A 01/27/2022 COLONOSCOPY WITH COLD SNARE POLYPECTOMY performed by Kilo Navarro MD at [facility] OR HIP ARTHROPLASTY Left KNEE ARTHROPLASTY Bilateral REPAIR ROTATOR CUFF W/ OR W/O ACROMIOPLASTY Left USE NEMO+CARDIOVERSION 03/24/2016 XA A-FIB ABLATION 10/23/2015 PVI/WACA Family History Problem Relation Name Age of Onset TB Mother No current facility-administered medications on file prior to encounter. Current Outpatient Medications on File Prior to Encounter Medication Sig albuterol sulfate HFA 108 (90 Base) MCG/ACT [...] 1 tablet (40 mg total) by mouth 2 (two) times daily. gabapentin (NEURONTIN) 400 MG capsule Take 1 capsule (400 mg total) by mouth. 1 tablet in the morning and 2 tablets at night glipiZIDE XL (GLUCOTROL XL) 5 MG 24 hr tablet Take 1 tablet (5 mg total) by mouth daily with breakfast. HYDROcodone-acetaminophen (NORCO) 7.5-325 MG tablet Take 1 tablet by mouth every 8 (eight) hours asneeded for Pain. hydrOXYzine (ATARAX) 50 MG tablet Take 1 tablet (50 mg total) by mouth 3 (three) times daily. As needed insulin detemir (LEVEMIR FLEXPEN) 100 UNIT/ML PEN Inject 15 Units into the skin nightly at bedtime. JARDIANCE 25 MG tablet Take 1 tablet (25 mg total) by mouth daily. lidocaine 4 % patch Place 1 patch onto the skin daily. Remove & Discard patch within 12 hours or as directed by methocarbamol (ROBAXIN) 500 MG tablet Take 1 tablet (500 mg total) by mouth 3 (three) times daily. metOLazone (ZAROXOLYN) 2.5 MG tablet Take 1 tablet (2.5 mg total) by mouth daily. mupirocin (BACTROBAN) 2 % ointment Apply 1 Application topically 2 (two) times daily. pantoprazole EC 40 MG tablet Take [...] daily. traZODone (DESYREL) 100 MG tablet Take 2 tablets (200 mg total) by mouth nightly at bedtime. TRELEGY ELLIPTA 100-62.5-25 MCG/ACT AEROSOL POWDER, BREATH ACTIVATED Inhale 1 puff into the lungs daily. warfarin (COUMADIN) 1 MG tablet Take 0.5 tablets (0.5 mg total) by mouth daily. Take with 5mg tab to make it 5.5mg daily warfarin (COUMADIN) 5 MG tablet daily. As directed Principal Problem: NSTEMI (non-ST elevated myocardial infarction) ([facility]) [facility] MYOCARDIAL INFARCTION Blood pressure 108/62, pulse 89, temperature 97.9 ??F (36.6 ??C), height 5' 6 (1.676 m), weight 91.2 kg (201 lb 1 oz), SpO2 93 %. No results for input(s): WBC, HGB, HCT, MCV, PLT, RBC in the last 72 hours. No results for input(s): ALT, AST, CO2, CL, GLU, K, NA, BUN in the last 72 hours. Invalid input(s): ALBUMIN, ALKPHOS, BILITOT, CALCIUM, CREATININE, PROT Microbiology: Microbiology Results (last 14 days) Procedure Component Value Units Date/Time CULTURE URINE [[id number]] Collected: 02/06/23 6669 Order Status: Completed Lab Status: Final result Updated: 02/07/23 1339 Specimen: URINE, CLEAN CATCH SPEC DESCRIPTION URINE CLEAN CATCH SPECIAL REQUESTS NO SPECIAL REQUEST CULTURE RESULT FEW CONTAMINANTS Imaging: CT CERV SPINE WO CON Result Date: 02/06/2023 Impression: 1. No acute osseous abnormality. 2. Mild facet arthropathy. Bulky anterior degenerativespondylosis. Referred By: Interpreted By: Luis Burger MD, 02/06/2023 3:[address] CHEST+ABD+PEL WO CON Result Date: 02/06/2023 IMPRESSION: CHEST: 1. Nondisplaced right rib fractures 2. Enlarged heart and atherosclerotic changes noted 3. Numerous bilateral pulmonary nodules are nonspecific. This may be related to granulomatous process, bronchiolitis, and no history of neoplasm was provided to suggest metastatic changes. If patient does not have significant risk factors or neoplastic process no additional follow-up is necessary, if patient has significant risk factors follow-up in one year could be obtained Abdomen and pelvis: 1. Within measurement variability grossly stable appearance to the right adrenal mass with indeterminate Hounsfield units, see prior report 2. Cholelithiasis without evidence of cholecystitis 3. Persistent ascites and soft tissue edema 4. Postsurgical changes, vascular calcifications, degenerative changes, small hernia, hypoattenuating areas in the kidney grossly stable Any follow-up recommendations contained in this report for incidentally detected pulmonary nodules were made according to current recommended guidelines based at a minimum on nodule size AND patient risk factors. Referred By: Interpreted By: Phill Currie MD, 02/06/2023 3:[address] HEAD WO CON Result Date: 02/06/2023 Impression: 1. Mild atrophy and white matter disease. 2. Decreased density in the left temporal lobe could be from prior infarct, but acute on chronic infarct cannot be excluded. Would consider MRI brain for further workup. Referred By: Interpreted By: Luis Burger MD, 02/06/2023 3:11 AM XR CHEST PORTABLE Result Date: 02/07/2023 IMPRESSION: 1. No acute chest disease identified. 2. The known right rib fractures are not well depicted radiographically. Ordered By: ALYSSA BUCIO Interpreted By: Misael Diaz MD, 02/07/2023 7:44 AM XR CHEST PORTABLE Result Date: 02/06/2023 IMPRESSION: 1) Somewhat Limited inspiration and the chest where there may be mild congestion although an inflammatory process cannot be excluded. Ordered By: ALYSSA BUCIO Interpreted By: Chidi Gonzalez MD, 02/06/2023 12:51 PM XR CHEST PORTABLE Result Date: 01/26/2023 IMPRESSION: 1. Stable cardiomegaly. 2. No radiographic evidence of acute cardiac pulmonary process.3. Stable chest. Referred By: Interpreted By: Precious Nelson DO, 01/26/2023 6:12 PM XR HIP ELZA 2V+PELVIS Result Date: 02/06/2023 Impression: 1. Well seated left hip arthroplasty with marked heterotopic bone formation surroundingthe left arthroplasty. 2. Right hip CAM-type femoral acetabular impingement. Moderate to advanced arthritis right hip. Referred By: Interpreted By: Luis Burger MD, 02/06/2023 3:32 AM MRI BRAIN WO CON Result Date: 02/06/2023 IMPRESSION: 1. No acute intracranial abnormality. 2. 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 3. Mild chronic small vessel ischemic change. Ordered By: ALYSSA BUCIO Interpreted By: Luis Presley MD, 02/06/2023 7:16 AM Assessment and Plan: Obie Sims is a 67 y/o M w/ hx of Type 2 DM, CAD, COPD, LBBB, s/p mechanical valve in 2021 and bioprosthetic AVR in 2013, A-fib on Warfarin, Chronic HFrEF (LVEF 37%), Severe Pulmonary HTN, HLD, hx of CVA, and CKD, who presented to ED w/ falls, malaise, and hyperglycemia. Labs w/ WBC 13.8, hbg 10.3, plt 214, Na 123, K 4.2, Co2 27, Bun 81, Cr 2.2, glucose >500, LA 1.4, Lfts wnL, and troponin 100.3. INR 1.6. UA negative. Utox + opioids. EKG w/ LBBB which is chronic. CTH and CT cervical spine were unremarkable. NSTEMI CAD --LHC in Aug 2020 w/ proximal LAD 60% stenosis, and ostial RCA 50% stenosis. Managed medically. -- Continue aspirin, Coreg, and atorvastatin. --consult Cardiology in AM. --pt w/o chest pain. EKG w/ LBBB which is known. Fall: no prodrome symptoms. PT/OT eval. CT head and cervical spine neg. Leukocytosis: will get blood cultures/procal. UA neg at OSH. CXR reportedly normal. Chronic HFrEF Aortic stenosis s/p MVR in 1999 & bioprosthetic valve (2013) Severe pulm hypertension Hypertension Hyperlipidemia --Echo in December 2022 w/ mild LVH, EF 37%, RV mod dysfunction. --will hold lasix/Aldacone as pt appears dry. --cont coreg, jardiance. Atrial Fibrillation: cont Coreg. Will hold further warfarin pending cardiology eval. CKD 4: Baseline Cr 1.8-2.2. Diabetes Hyperglycemia --cont lantus QHS, SSI w/ accuchecks ACHS. COPD: Cont home inhalers. Chronic Anemia: check iron stores and vitamin b12. CODE STATUS: FULL DVT prophylaxis: warfarin Diet: Cardiac SEGUNDO MONTANA MD 02/16/2023 Thank you for choosing [facility] hospitalist service. Please call us if any questions or concerns. documented in this encounter Consult Notes * Brain Judd, DANNY - 02/16/2023 1:07 PM CDT Images from the original note were not included. Cardiology Consult Note Patient Name: Obie Sims : 1955 PCP: MEGAN INFANTE MD Primary Coal Mill Operator: Dr. Pandey Reason for Consultation: Elevated troponin ASSESSMENT/PLAN: Elevated troponin with history of moderate coronary artery disease - low level troponin elevation without symptoms suggestive of angina. EKG shows LBBB which is chronic. Clinical presentation not consistent with ACS, likely demand ischemia in the setting of recent fall and renal dysfunction. - Continue medical therapy for known coronary artery disease (aspirin, atorvastatin, coreg). No indication for further cardiac testing at this time. Will continue to observe symptomatically and if any concerning cardiac symptoms arise will consider further testing. 2. Aortic stenosis s/p aortic stenosis s/p mechanical aortic valve replacement (1999) and bioprosthetic aortic valave replacement (2013) - continue warfarin 3. Chronic heart failure with reduced ejection fraction (LVEF 37%); NICM - euvolemic on exam. Continue coreg. Advance GDMT as renal function and blood pressure allow. 4. Paroxysmal atrial fibrillation s/p ablation - continue beta kim and anticoagulation 5. Mechanical fall - per primary. PT/OT HPI: This is a 67 year old male with a history of coronary artery disease, paroxysmal atrial fibrillation s/p ablation on warfarin, aortic stenosis s/p mechanical aortic valve replacement (1999) and bioprosthetic aortic valave replacement (2013), heart failure with reduced ejection fraction (LVEF 37%), NICM, mild carotid stenosis, hypertension, hyperlipidemia, type 2 diabetes mellitus, COPD, CKD,history of CVA, pulmonary hypertension, presented [facility] after sustaining mechanical fall. Patient had a recent admission to our institution after sustaining a fall and was found to have a rib fracture. He was discharged to swing bed unit. Yesterday at the swing bed unit he sustained another mechanical fall. He states that he went to stand up and his legs became weak causing him to fall.He denies any dizziness, lightheadedness or syncope. He denies any chest pain, heaviness or pressure. He denies palpitations. From a cardiovascular standpoint has been doing quite well. He has chronic lower extremity edema which is unchanged from his baseline. He has chronic orthopnea. He denies worsening exertional dyspnea. At [facility] as part of his initial diagnostic work-up he was found to have mildly elevatedtroponin. He was transferred to [facility] for further evaluation. Recent Labs Lab 02/16/23 0454 06/27/23 1112 TROP 106* 97* Recent cardiovascular studies: TTE 12/29/22 Technically difficult exam. Mild concentric left ventricular hypertrophy. The calculated ejection fraction is 37%. The right ventricular size is enlarged. Right ventricular systolic function is moderately depressed. Biatrial enlargement. 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 No evidence of aortic regurgitation. Trace mitral regurgitation. Unable to reliably quantitate pulmonary systolic pressure. Nuclear stress test 02/02/2022 Negative for ischemia. LHC +RHC 09/10/2020 pLAD 60% Ostial RCA 50% Severe pulmonary hypertension Past Medical History: Diagnosis Date Abnormal ankle brachial index (STELLA) Acute on chronic heart failure, unspecified heart failure type (CMS/HCC) Anxiety Aortic valve stenosis Arthritis Asthma, mild persistent 04/06/2021 Atrial fibrillation (CMS/HCC) s/p PVI/WACA 10/2015 Bilateral leg pain Carotid disease, bilateral (CMS/HCC) CHF (congestive heart failure) (CMS/HCC) Claudication (CMS/HCC) COPD (chronic obstructive pulmonary disease) (CMS/HCC) Coronary artery disease Diabetes mellitus, type II (CMS/HCC) Edema 04/19/2018 2+ pitting History of blood transfusion Hyperlipidemia Hypertension LV dysfunction Osteoarthritis PAD (peripheral artery disease) (CMS/HCC) Pneumonia Restless leg syndrome S/P aortic valve replacement with bioprosthetic valve 2013 SOB (shortness of breath) Stroke (CMS/HCC) Varicose veins of bilateral lower extremities with other complications Weight gain with edema Past Surgical History: Procedure Laterality Date APPENDECTOMY CARDIAC VALVE REPLACEMENT 1999 CARDIAC VALVE REPLACEMENT 2013 CARDIOVERSION EXTERNAL 10/01/2015 CARDIOVERSION EXTERNAL 04/14/2012 COLONOSCOPY N/A 03/18/2021 COLONOSCOPY (Incomplete) performed by Kilo Navarro MD at [facility] OR COLONOSCOPY N/A 01/27/2022 COLONOSCOPY WITH COLD SNARE POLYPECTOMY performed by Kilo Navarro MD at [facility] OR HIP ARTHROPLASTY Left KNEE ARTHROPLASTY Bilateral REPAIR ROTATOR CUFF W/ OR W/O ACROMIOPLASTY Left USE NEMO+CARDIOVERSION 03/24/2016 XA A-FIB ABLATION 10/23/2015 PVI/WACA Medications Prior to Admission Medication Sig Dispense Refill albuterol sulfate HFA 108 (90 Base) MCG/ACT [...] 1 tablet (40 mg total) by mouth 2 (two) times daily. gabapentin (NEURONTIN) 400 MG capsule Take 1 capsule (400 mg total) by mouth. 1 tablet in the morning and 2 tablets at night glipiZIDE XL (GLUCOTROL XL) 5 MG 24 hr tablet Take 1 tablet (5 mg total) by mouth daily with breakfast. 30 tablet 0 HYDROcodone-acetaminophen (NORCO) 7.5-325 MG tablet Take 1 tablet by mouth every 8 (eight) hours asneeded for Pain. hydrOXYzine (ATARAX) 50 MG tablet Take 1 tablet (50 mg total) by mouth 3 (three) times daily. As needed insulin detemir (LEVEMIR FLEXPEN) 100 UNIT/ML PEN Inject 15 Units into the skin nightly at bedtime.9 mL 0 JARDIANCE 25 MG tablet Take 1 tablet (25 mg total) by mouth daily. lidocaine 4 % patch Place 1 patch onto the skin daily. Remove & Discard patch within 12 hours or as directed by MD 30 patch 0 methocarbamol (ROBAXIN) 500 MG tablet Take 1 tablet (500 mg total) by mouth 3 (three) times daily. metOLazone (ZAROXOLYN) 2.5 MG tablet Take 1 tablet (2.5 mg total) by mouth daily. mupirocin (BACTROBAN) 2 % ointment Apply 1 Application topically 2 (two) times daily. pantoprazole EC 40 MG tablet Take [...] daily. traZODone (DESYREL) 100 MG tablet Take 2 tablets (200 mg total) by mouth nightly at bedtime. TRELEGY ELLIPTA 100-62.5-25 MCG/ACT AEROSOL POWDER, BREATH ACTIVATED Inhale 1 puff into the lungs daily. warfarin (COUMADIN) 1 MG tablet Take 0.5 tablets (0.5 mg total) by mouth daily. Take with 5mg tab to make it 5.5mg daily 30 tablet 0 warfarin (COUMADIN) 5 MG tablet daily. As directed No Known Allergies Social History Tobacco Use Smoking status: Former Smokeless tobacco: Former Types: Chew Substance Use Topics Alcohol use: Yes Comment: 6 beers per week Family History Problem Relation Name Age of Onset TB Mother Review of Systems Constitutional: Positive for weakness. Negative for recent unintentional weight gain, recent unintentional weight loss and new or significant fatigue. HENT: Negative for new or significant hearing loss. Eyes: Negative for blurred vision and double vision. Respiratory: Negative for cough and new or significant shortness of breath. Cardiovascular: See HPI. Gastrointestinal: Negative for blood in stool and melena. Genitourinary: Negative for dysuria. Musculoskeletal: Negative for myalgias and new or worsening joint stiffness/pain. Skin: Negative for rash. Neurological: Negative for tingling/numbness and focal weakness. Endo/Heme/Allergies: Negative for new or significant bruising/bleeding. Psychiatric/Behavioral: Negative for nervous/anxious. Medications: Scheduled Meds: allopurinol 300 mg Oral Daily aspirin 81 mg Oral Daily atorvastatin 80 mg Oral Nightly at bedtime carvedilol 3.125 mg Oral BID empagliflozin 25 mg Oral Daily enoxaparin 40 mg Subcutaneous Nightly (enoxaparin) fluticasone 1 puff Inhalation 2 times daily gabapentin 400 mg Oral Daily gabapentin 800 mg Oral nightly insulin glargine 15 Units Subcutaneous Nightly at bedtime insulin lispro 0-8 Units Subcutaneous 4x Daily AC and at bedtime ipratropium-albuterol 1 puff Inhalation 4x daily - RT lidocaine 1 patch Transdermal Q24H pantoprazole EC 40 mg Oral Daily rOPINIRole 4 mg Oral Nightly at bedtime sertraline 50 mg Oral Daily Continuous Infusions: PRN Meds: acetaminophen, ondansetron Meds Prior to Admission: Medications Prior to Admission Medication Sig Dispense Refill albuterol sulfate HFA 108 (90 Base) MCG/ACT [...] 1 tablet (40 mg total) by mouth 2 (two) times daily. gabapentin (NEURONTIN) 400 MG capsule Take 1 capsule (400 mg total) by mouth. 1 tablet in the morning and 2 tablets at night glipiZIDE XL (GLUCOTROL XL) 5 MG 24 hr tablet Take 1 tablet (5 mg total) by mouth daily with breakfast. 30 tablet 0 HYDROcodone-acetaminophen (NORCO) 7.5-325 MG tablet Take 1 tablet by mouth every 8 (eight) hours asneeded for Pain. hydrOXYzine (ATARAX) 50 MG tablet Take 1 tablet (50 mg total) by mouth 3 (three) times daily. As needed insulin detemir (LEVEMIR FLEXPEN) 100 UNIT/ML PEN Inject 15 Units into the skin nightly at bedtime.9 mL 0 JARDIANCE 25 MG tablet Take 1 tablet (25 mg total) by mouth daily. lidocaine 4 % patch Place 1 patch onto the skin daily. Remove & Discard patch within 12 hours or as directed by MD 30 patch 0 methocarbamol (ROBAXIN) 500 MG tablet Take 1 tablet (500 mg total) by mouth 3 (three) times daily. metOLazone (ZAROXOLYN) 2.5 MG tablet Take 1 tablet (2.5 mg total) by mouth daily. mupirocin (BACTROBAN) 2 % ointment Apply 1 Application topically 2 (two) times daily. pantoprazole EC 40 MG tablet Take [...] daily. traZODone (DESYREL) 100 MG tablet Take 2 tablets (200 mg total) by mouth nightly at bedtime. TRELEGY ELLIPTA 100-62.5-25 MCG/ACT AEROSOL POWDER, BREATH ACTIVATED Inhale 1 puff into the lungs daily. warfarin (COUMADIN) 1 MG tablet Take 0.5 tablets (0.5 mg total) by mouth daily. Take with 5mg tab to make it 5.5mg daily 30 tablet 0 warfarin (COUMADIN) 5 MG tablet daily. As directed OBJECTIVE Last Recorded Weight 02/16/23 0311 Weight: 91.2 kg (201 lb 1 oz) Current BMI: Body mass index is 32.45 kg/m??. Vital signs: Vitals: 02/16/23 0802 BP: 125/57 Pulse: 84 Resp: 18 Temp: 98.1 ??F (36.7 ??C) SpO2: 98% Physical Exam Vitals reviewed. Constitutional: General: He is not in acute distress. HENT: Head: Normocephalic. Mouth/Throat: Mouth: Mucous membranes are moist. Eyes: Conjunctiva/sclera: Conjunctivae normal. Cardiovascular: Rate and Rhythm: Normal rate and regular rhythm. Heart sounds: No murmur heard. Pulmonary: Effort: Pulmonary effort is normal. No respiratory distress. Abdominal: General: Bowel sounds are normal. There is distension. Palpations: Abdomen is soft. Musculoskeletal: Cervical back: Neck supple. Right lower leg: Edema present. Left lower leg: Edema present. Skin: General: Skin is warm and dry. Neurological: Mental Status: He is alert. Mental status is at baseline. Psychiatric: Behavior: Behavior normal. Thought Content: Thought content normal. Labs and Cultures: Lab Results Component Value Date NA 134 (L) 02/16/2023 K 3.8 02/16/2023 CL 99 02/16/2023 CO2 27.2 02/16/2023 BUN 76 (H) 02/16/2023 CR 1.90 (H) 02/16/2023 GFRNON 37 12/19/2021 GFRNON 37 12/19/2021 GFR --- 12/19/2021 GLU 216 (H) 02/16/2023 CA 9.2 02/16/2023 TROP 97 (H) 02/16/2023 TROP 106 (H) 02/16/2023 TROP 39 02/06/2023 PBNP 3,539 (H) 01/26/2023 Lab Results Component Value Date WBC 13.19 (H) 02/16/2023 HGB 9.6 (L) 02/16/2023 PLT 193 02/16/2023 INR 1.8 (H) 02/16/2023 Lab Results Component Value Date ALB 3.0 (L) 02/06/2023 AST 23 02/06/2023 ALT 19 02/06/2023 HGBA1C 8.2 (H) 02/16/2023 TSH 5.480 (H) 02/16/2023 Imaging: ECG 12 lead Result Date: 02/16/2023 [facility] [address] [place] [address] Test Date: 2023-02-16 Pat Name: OBIE SIMS Department: 1 Room: 506 Gender: Male 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: [place] : 1955 Requested By: SEGUNDO MONTANA Order Number: [id number] Reading MD: Measurements Intervals [place] Rate: 83 P: -7 GA: 263 QRS: -39 QRSD: 151 T: 130 QT: 425 QTc: 501 Interpretive Statements SINUS RHYTHM WITH FIRST DEGREE AV BLOCK MARKED LEFT AXIS DEVIATION LEFT BUNDLE BRANCH BLOCK ECG 12 lead Result Date: 02/07/2023 [facility] [address] [place] [address] Test Date: 2023-02-06 Pat Name: OBIE SIMS Department: 1 Room: 854BB Gender: Male 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: [place] : 1955 Requested By: ALYSSA BUCIO Order Number: [id number] Reading MD: Brit Gonzáles Measurements IntervalsAxis Rate: 87 P: -80 GA: 262 QRS: -37 QRSD: 150 T: 136 QT: 406 QTc: 489 Interpretive Statements SINUS RHYTHM WITH FIRST DEGREE AV BLOCK LEFT AXIS DEVIATION LEFT BUNDLE BRANCH BLOCK ECG 12 lead Result Date: 02/06/2023 [facility] Test Date: 2023-02-06 Pat Name: OBIE SIMS Department: 70 Room: EXAM N Gender: Male 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: : 1955 Requested By: AMAURI HAMMOND Order Number: [id number] MD: Brit Gonzáles Measurements Intervals [place] Rate: 89 P: GA: 0 QRS: -34 QRSD: 137 T: 138 QT: 384 QTc: 469 Interpretive Statements UNCERTAIN REGULAR RHYTHM LEFT AXIS DEVIATION [QRS AXIS < -30] INTRAVENTRICULAR CONDUCTION DELAY [130+ ms QRS DURATION] POSSIBLE ANTERIOR MYOCARDIAL INFARCTION , PROBABLY OLD [30 ms Q WAVE IN V3/V4, OR R < 0.2 mV IN V4] ECG 12 lead Result Date: 01/27/[address] [place] [address] Test Date: 2023-01-26 Pat Name: DANIELLA Department: 3 Room: EXAM 707 Gender: Male 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: : 1955 Requested By: URI BLAIR Order Number: [id number] Reading MD: Sharon Willis Measurements Intervals [place] Rate: 99 P: -10 GA: 232 QRS: -18 QRSD: 137 T: 123 QT: 350 QTc: 449 Interpretive Statements SINUS RHYTHM WITH FIRST DEGREE AV BLOCK WITH OCCASIONAL VENTRICULAR PREMATURE COMPLEXES INTRAVENTRICULAR CONDUCTION DELAY DATA QUALITY MAY AFFECT INTERPRETATION CT CERV SPINE WO CON Result Date: 02/06/2023 Date: 02/06/2023. Exam: CT cervical spine. Comparison: No comparisons. Technique: Thin section images were obtained of the cervical spine with coronal and sagittal reconstructions. No IV contrast. A dose lowering technique was used for this procedure, which may include, but is not limited to, dose reduction technique, automated exposure control, the use of iterative reconstruction, and ALARA (As Low As Reasonably Achievable)/ Image gently techniques. History: Status post fall hitting head on wall. Found after 1.5 hours. Findings: There is normal cervical lordosis. There are no compression fractures nor subluxations. There is bulky anterior degenerative spondylosis. There are mild foraminal stenoses due to uncovertebral arthropathy at C2-3 and C3-4. There is mild facet arthropathy. The spinous processes are intact. The prevertebral soft tissues are normal. The lateral masses of C1 and C2are well aligned. The odontoid process is intact. The atlanto-occipital articulations are intact. Th ere is densely calcified disease in the carotid arteries. Impression: 1. No acute osseous abnormality. 2. Mild facet arthropathy. Bulky anterior degenerativespondylosis. Referred By: Interpreted By: Luis Burger MD, 02/06/2023 3:[address] CHEST+ABD+PEL WO CON Result Date: 02/06/2023 Indication: Trip and fall, hit head, lying on the floor, rib pain and leg pain, abdominal pain COMPARISON: 12/28/2022 DOSE OPTIMIZATION: This facility uses dose optimization techniques as appropriate to perform exams, including at least one of the following techniques: 1. Automated exposure control.2. Adjustment of the mA and/or kV according to patient size (this includes techniques or standardized protocols for targeted exams where dose is matched to the indication/reason for exam, i.e. extremities or head). 3. Use of iterative reconstructive technique. FINDINGS: CHEST: There are postsurgical changes seen in the sternum. Coronary arterial calcifications are noted. The heart is enlarged. Nopericardial effusion is seen. Minimal pleural thickening is noted. No pneumothorax or pleural effusi on is seen. Mild interstitial prominence is noted. There is ankylosis in the spine. Degenerative changes in the spine are noted. Old left rib injuries are noted. There is an anterior right fifth rib and sixth rib and lateral seventh rib buckling. Old rib fractures are seen on the right. Bilateral pulmonary nodules are noted measuring less than 5 mm scattered throughout the lungs. Abdomen and pelvis: There are gallstones in the gallbladder. No pericholecystic fluid or wall thickening is seen. There is an indeterminant 4.4 x 3.4 cm right adrenal nodule. The spleen, liver, pancreas, and right kidney are within normal limits. There is nonspecific hyperattenuating area in the left kidney and hypo attenuating areas in the left kidney which are incompletely characterized on today's study. Hydronephrosis or hydroureter is not appreciated. There is free fluid in the pelvis and adjacent to the liver tip and spleen. There is a periumbilical fat hernia. The bladder is distended. The presence of stool, lack of contrast, and lack of distention limit evaluation. Gross pericolonic inflammatory changes are not appreciated within the limits of the study. There is moderate amount of stool seen throughout the colon. No small bowel distention is seen. Atherosclerotic changes of aorta are noted. No gross. Aortic lymphadenopathy by size criteria is appreciated. Mild soft tissue swelling is seen diffusely versus fluid overload or anasarca. Large subcutaneous hyperattenuating area to suggest hematomais not appreciated. There are degenerative changes in the spine. There are postsurgical changes seen in the left hip. There are degenerative changes in the pelvis. There are stable dystrophic calcifications seen adjacent to the left hip. The prominent prostate is again noted. IMPRESSION: CHEST: 1. Nondisplaced right rib fractures 2. Enlarged heart and atherosclerotic changes noted 3. Numerous bilateral pulmonary nodules are nonspecific. This may be related to granulomatous process, bronchiolitis, and no history of neoplasm was provided to suggest metastatic changes. If patient does not have significant risk factors or neoplastic process no additional follow-up is necessary, if patient has significant risk factors follow-up in one year could be obtained Abdomen and pelvis: 1. Within measurement variability grossly stable appearance to the right adrenal mass with indeterminate Hounsfield units, see prior report 2. Cholelithiasis without evidence of cholecystitis 3. Persistent ascites and soft tissue edema 4. Postsurgical changes, vascular calcifications, degenerative changes, small hernia, hypoattenuating areas in the kidney grossly stable Any follow-up recommendations contained in this report for incidentally detected pulmonary nodules were made according to current recommended guidelines based at a minimum on nodule size AND patient risk factors. Referred By: Interpreted By: Phill Currie MD, 02/06/2023 3:[address] HEAD WO CON Result Date: 02/06/2023 Date: 02/06/2023 3:05 AM Exam: CT HEAD WO CON Comparison: No comparisons. Technique: Thin section images were obtained from the skull base through the vertex without IV contrast infusion. Coronal and sagittal reconstructions. A dose lowering technique was used for this procedure, which may include, but is not limited to, dose reduction technique, automated exposure control, the use of iterative reconstruction, and ALARA (As Low As Reasonably Achievable)/ Image gently techniques. History: Status post fall hitting head on the wall. Found after 1.5 hours. Findings: There is mild atrophy and whitematter disease. There is no intracranial hemorrhage. The [place] white matter differentiation is preser nneka. There is no hyperdense arterial sign. There is decreased density in the left temporal lobe possibly due to some degree of encephalomalacia. This could be from a prior infarct, but an acute on chronic infarct is not excluded. Overall, would consider MRI brain for further workup. There are no masses nor mass effect. The basilar cisterns are preserved. The ventricular system is normal in caliber. The visualized paranasal sinuses and mastoids are clear. The calvarium is intact. Impression: 1. Mild atrophy and white matter disease. 2. Decreased density in the left temporal lobe could be from prior infarct, but acute on chronic infarct cannot be excluded. Would consider MRI brain for further workup. Referred By: Interpreted By: Luis Burger MD, 02/06/2023 3:11 AM XR CHEST PORTABLE Result Date: 02/16/2023 EXAMINATION: XR Portable CXR, 1 View INDICATION: Leukocytosis, fall, malaise COMPARISON: Portable AP chest x-ray 02/07/2023. FINDINGS: Stable cardiomegaly and postop changes of median sternotomy and valvular prosthesis. quality assurance monitor final leads overlie the chest and abdomen. Stable prominence of interstitial markings in lower two thirds of bilateral lungs, chronic interstitial scarring versus mild persistent interstitial pulmonary edema. No new infiltrate, consolidation, pleural effusion, or pneumothorax. Osteopenia with stable old healed left rib fractures. No acute osseous abnormality. IMPRESSION: 1. No significant change since 02/07/2023 and no new or worsening pulmonary abnormality.2. Stable cardiomegaly and postop changes of median sternotomy and valvular prosthesis. 3. Stable interstitial opacities in lower two thirds of bilateral lungs, pulmonary edema versus chronic interstitial scarring with atypical pneumonia less likely. Referred By: PROVIDER NON-STAFF Interpreted By: Thelma Esposito MD, 02/16/2023 6:07 AM XR CHEST PORTABLE Result Date: 02/07/2023 Examination: XR CHEST PORTABLE Exam time: 02/07/2023 7:20 AM Clinical history: Fall and history of rib fractures. Comparison: Radiographs January 1723 and January 26, 2023. CT January 1723. Technique: AP image of the chest. Findings: Median sternotomy wires and valve prosthesis noted. Mild cardiomegaly. The lungs appear clear. No pleural effusion or pneumothorax. The known nondisplaced right rib fractures seen on the comparison CT are not well depicted radiographically. IMPRESSION: 1. No acute chest disease identified. 2. The known right rib fractures are not well depicted radiographically. Ordered By: ALYSSA BUCIO Interpreted By: Misael Diaz MD, 02/07/2023 7:44 AM XR CHEST PORTABLE Result Date: 02/06/2023 Examination: XR CHEST PORTABLE Exam time: 02/06/2023 11:50 AM Clinical history: Rib fractures. Patient had a CT scan of the chest on the same date earlier which showed fractures at the anterolateral right rib cage. Comparison: Prior chest radiographs performed 12/28/2022. Technique: One view chest. Findings: Heart size is prominent. Postoperative changes of cardiac surgery. The aeration of the lungs is worse than before with limited inspiration. In the lungs there are subtle somewhat patchy groundglass opacities which may represent congestion, although an inflammatory process and/or other etiologies cannot be excluded. . There is no pneumothorax. There is no effusion. Fractures described on the CT scan are not well appreciated on the radiograph. Monitoring devices. IMPRESSION: 1) Somewhat Limited inspiration and the chest where there may be mild congestion although an inflammatory process cannot be excluded. Ordered By: ALYSSA BUCIO Interpreted By: Chidi Gonzalez MD, 02/06/2023 12:51 PM XR CHEST PORTABLE Result Date: 01/26/2023 CLINICAL INDICATION: 67-YEAR-OLD MALE. FLUID OVERLOAD, LOWER EXTREMITY SWELLING. SHORTNESS OF BREATH. TECHNIQUE: Portable upright AP view of the chest. 17:34 COMPARISON: Upright PA and lateral views of the chest 12/28/2022 FINDINGS: Stable cardiomegaly. No change in intact median sternotomy wire sutures. Stable prosthetic aortic valve. Pulmonary vascular distribution is unremarkable. The lungs are clear of infiltrates. No pleural effusion or consolidation. Low volume lung film therefore the basisor not visualized. IMPRESSION: 1. Stable cardiomegaly. 2. No radiographic evidence of acute cardiac pulmonary process.3. Stable chest. Referred By: Interpreted By: Precious Nelson DO, 01/26/2023 6:12 PM XR HIP ELZA 2V+PELVIS Result Date: 02/06/2023 Date: 02/06/2023 3:24 AM Exam: XR HIP ELZA 2V+PELVIS Comparison: Left hip radiography dated 12/17/2011. Technique: Frontal view of the pelvis and hips. Frontal and lateral view of each hip. History: Fall. Hip pain. Pain down the legs. Findings: There is a left hip arthroplasty without dislocation nor gross periprosthetic fracture. There is marked heterotopic bone formation along the medial and lateral aspects of the left hip arthroplasty. There is at least moderate arthritis in the right hip. There is right hip CAM-type femoral acetabular impingement. There is a 7 mm loose body along the lateralright hip. The pubic rami and iliac wings are intact. Impression: 1. Well seated left hip arthroplasty with marked heterotopic bone formation surroundingthe left arthroplasty. 2. Right hip CAM-type femoral acetabular impingement. Moderate to advanced arthritis right hip. Referred By: Interpreted By: Luis Burger MD, 02/06/2023 3:32 AM MRI BRAIN WO CON Result Date: 02/06/2023 Examination: MRI BRAIN WO CON, 02/06/2023 7:16 AM. Technique: Multiplanar multisequence magnetic resonance images of the brain were obtained without intravenous contrast. Clinical history: Fall, abnormal head CT Comparison: CT head 02/06/2023 Findings: There is no restricted diffusion to suggest an acute infarction. Focal encephalomalacia involving the superior aspect of the left temporal lobe as evidence for an old infarct. No hemorrhagic focus of susceptibility. Scattered subcortical and periventricular white matter foci demonstrating increased signal on T2-weighted FLAIR images that are nonspecific. Old infarcts involving the cerebellar hemispheres bilaterally, right greater than left. Old infarct involving the left thalamus. The sellar, callosal, pineal, and craniovertebral junction regions appear within normal limits. There is no extra-axial fluid collection. The ventricles are normal in size. The basal cisterns appear normal. The proximal intracranial arterial flow voids have a no rmal appearance. Orbital contents appear normal. Paranasal sinuses and mastoid air cells are well aerated. IMPRESSION: 1. No acute intracranial abnormality. 2. 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 3. Mild chronic small vessel ischemic change. 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 I reviewed the MLP's note and agree with the findings and plan of care, except as I have documented. Plan of care developed under my direct supervision. Chart reviewed. Hx taken. Pt examined. See full report. IMP: 1. Elevated Troponin level -- demand ischemia. 2. Aortic stenosis -- S/P mechanical AVR (1999) and bioprosthetic AVR (2013). 3. Chronic systolic CHF (LVEF 37%). 4. Paroxysmal atrial fibrillation -- S/P ablation. 5. Mechanical falls 6. Carotid artery disease 7. PAD 8. HTN 9. Hyperlipidemia 10. LBBB pattern 11. CKD 12. Hx of CVA 13. COPD 14. Pulmonary hypertension REC: 1. Continue ASA/Warfarin, B-blockade (Carvedilol), and statin therapy (Atorvastatin). 2. Continue diuretic therapy (Lasix/Spironolactone/Metolazone). 3. Continue Jardiance (SGLT2 inhibitor). 4. No further cardiac testing necessary at this time unless cardiac symptoms arise. Thanks, Will follow with you. I spent 60 minutes reviewing the chart, taking the history, examining the patient, and documenting in the chart. documented in this encounter Nursing Notes * Luba Harding RN - 02/16/2023 1:57 AM CDTSummary: CONNECT RN TO RN REPORT Images from the original note were not included. 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 Author Family - family caregiver with be involved in care transitions and discharge planning Lifestyle Karen Diane RN documented as of this encounter Procedures Procedure Name Priority Date/Time Associated Diagnosis Comments POCT GLUCOSE - VALLECILLO DOCKED DEVICE Routine 02/18/2023 11:13 AM CDT POCT GLUCOSE - VALLECILLO DOCKED DEVICE Routine 02/18/2023 7:00 AM CDT PROTHROMBIN TIME, VENOUS Routine 02/18/2023 6:20 AM CDT BASIC METABOLIC PANEL Routine 02/18/2023 6:20 AM CDT CBC W/DIFF AUTOMATED Routine 02/18/2023 6:20 AM CDT POCT GLUCOSE - VALLECILLO DOCKED DEVICE Routine 02/17/2023 9:37 PM CDT POCT GLUCOSE - VALLECILLO DOCKED DEVICE Routine 02/17/2023 4:14 PM CDT PROTHROMBIN TIME, VENOUS Routine 02/17/2023 11:47 AM CDT HEPATIC FUNCTION PANEL Routine 11:46 AM CDT POCT GLUCOSE - VALLECILLO DOCKED DEVICE Routine 02/17/2023 11:33 AM CDT POCT GLUCOSE - VALLECILLO DOCKED DEVICE Routine 02/17/2023 8:36 AM CDT HEMOGLOBIN, GLYCOSYLATED Routine 02/17/2023 5:06 AM CDT BASIC METABOLIC PANEL Routine 02/17/2023 5:06 AM CDT CBC W/DIFF AUTOMATED Routine 02/17/2023 5:06 AM CDT MAGNESIUM Routine 02/17/2023 5:06 AM CDT POCT GLUCOSE - VALLECILLO DOCKED DEVICE Routine 02/16/2023 8:43 PM CDT POCT GLUCOSE - VALLECILLO DOCKED DEVICE Routine 02/16/2023 4:39 PM CDT TROPONIN, QUANT TIMED 02/16/2023 4:25 PM CDT POCT GLUCOSE - VALLECILLO DOCKED DEVICE Routine 02/16/2023 11:19 AM CDT TROPONIN, QUANT TIMED 02/16/2023 11:12 AM CDT POCT GLUCOSE - VALLECILLO DOCKED DEVICE Routine 02/16/2023 8:01 AM CDT POCT GLUCOSE - VALLECILLO DOCKED DEVICE Routine 02/16/2023 6:40 AM CDT XR CHEST PORTABLE Today 02/16/2023 5:4 5 AM CDT IRON SAT PANEL (IRON,IBC,%SAT) Routine 02/16/2023 5:32 AM CDT VITAMIN B-12 Routine 02/16/2023 5:32 AM CDT FERRITIN Routine 02/16/2023 5:32 AM CDT CULTURE, BACTERIA, BLOOD TIMED 02/16/2023 5:03 AM CDT PROCALCITONIN (PCT) Routine 02/16/2023 5 :02 AM CDT CULTURE, BACTERIA, BLOOD TIMED 02/16/2023 5:01 AM CDT HEMOGLOBIN, GLYCOSYLATED Routine 02/16/2023 4:54 AM CDT PROTHROMBIN TIME, VENOUS Routine 02/16/2023 4:54 AM CDT BASIC METABOLIC PANEL Routine 02/16/2023 4:54 AM CDT CBC W/DIFF AUTOMATED Routine 02/16/2023 4:54 AM CDT TROPONIN, QUANT TIMED 02/16/2023 4:54 AM CDT THYROID STIM HORMONE TSH Routine 02/16/2023 4:54 AM CDT MAGNESIUM Routine 02/16/2023 4:54 AM CDT ECG 12-LEAD STAT 02/16/2023 4:44 AM CDT POCT GLUCOSE - VALLECILLO DOCKED DEVICE Routine 02/16/2023 3:20 AM CDT documented in this encounter Results * (ABNORMAL) POCT glucose (02/18/2023 11:13 AM CDT) GLUCOSE POC 217(H) 70 - 109 02/18/2023 11:36 AM CDT [facility] 02/18/2023 11:1 3 AM CDT Daniel Dupree MD POCT ORDERABLES - DEVICE Final Result [facility] [address] [place] [address], [id number] * (ABNORMAL) POCT glucose (02/18/2023 7:00 AM CDT) GLUCOSE POC 185(H) 70 - 109 02/18/2023 7:01 AM CDT [facility] 02/18/2023 7:00 AM CDT us Daniel Dupree MD POCT ORDERABLES - DEVICE Final Result Performing Organization Address [facility] Co de Phone Number [facility] [address] [place] [address], [id number] * (ABNORMAL) PROTIME/INR, VENOUS - Daily (02/18/2023 6:20 AM CDT) PROTIME 15.0(H) 9.4 - 12.5 SEC 02/18/2023 7:00 AM CDT [facility] INR 1.3(H) 0.8 - 1.1 02/18/2023 7:00 AM CDT [facility] 02/18/2023 6:20 AM CDT us Daniel Dupree MD LABORATORY Final Result Performing Organization Address [facility] de Phone Number [facility] [address] [place] [address], [id number] * (ABNORMAL) CBC W/DIFF AUTOMATED (02/18/2023 6:20 AM CDT) WBC 9.71 4.00 - 10.80 x10'3/uL 02/18/2023 6:37 AM CDT [facility] RBC 4.13(L) 4.50 - 6.10 x10'6/uL 02/18/2023 6:37 AM CDT [facility] HGB 9.6(L) 13.0 - 18.0 G/DL 02/18/2023 6:37 AM CDT [facility] HCT 33.1(L) 37.0 - 52.0 % 02/18/2023 6:37 AM CDT [facility] MCV 80.1 78.0 - 100.0 FL 02/18/2023 6:37 AM CDT [facility] MCH 23.2(L) 27.0 - 31.0 PG 02/18/2023 6:37 AM CDT [facility] MCHC 29.0(L) 33.0 - 36.0 G/DL 02/18/2023 6:37 AM CDT [facility] RDW 20.8(H) 11.5 - 14.5 % 02/18/2023 6:37 AM CDT [facility] PLT 219 150 - 350 x10'3/uL 02/18/2023 6:37 AM CDT [facility] MPV 10.5(H) 7.4 - 10.4 FL 02/18/2023 6:37 AM CDT [facility] ABS. NEUTROPHILS 6.52 1.60 - 8.30 x10'3/uL 02/18/2023 6:37 AM CDT [facility] ABS. LYMPHOCYTES 1.60 0.80 - 4.70 x10'3/uL 02/18/2023 6:37 AM CDT [facility] ABS. MONOCYTES 1.02 0.00 - 1.50 x10'3/uL 02/18/2023 6:37 AM CDT [facility] ABS. EOSINOPHILS 0.46(H) 0.00 - 0.40 x10'3/uL 02/18/2023 6:37 AM CDT [facility] ABS. BASOPHILS 0.06 0.00 - 0.20 x10'3/uL 02/18/2023 6:37 AM CDT [facility] ABS. IMMATURE GRANULOCYTES 0.05(H) 0.00 - 0.03 x10'3/uL 02/18/2023 6:37 AM T [facility] ABS. NUCLEATED RBC'S 0.00 0.0 x10'3/uL 02/18/2023 6:37 AM T [facility] 02/18/2023 6:20 AM CDT Daniel Dupree MD LABORATORY Final Result [facility] [address] [place] [address], [phone] * (ABNORMAL) BASIC METABOLIC PANEL (02/18/2023 6:20 AM CDT) SODIUM S/P/B 131(L) 136 - 145 MMOL/L 02/18/2023 7:00 AM CDT [facility] POTASSIUM S/P/B 3.9 3.5 - 5.1 MMOL/L 02/18/2023 7:00 AM CDT [facility] CHLORIDE S/P/B 96(L) 98 - 107 MMOL/L 02/18/2023 7:00 AM CDT [facility] CO2 28.1 21.0 - 32.0 MMOL/L 02/18/2023 7:00 AM CDT [facility] GLUCOSE 173(H) 74 - 106 MG/DL 02/18/2023 7:00 AM CDT [facility] BUN 54(H) 7 - 18 MG/DL 02/18/2023 7:00 AM CDT [facility] CREATININE S/P/B 1.74(H) 0.70 - 1.30 MG/DL 02/18/2023 7:00 AM CDT [facility] CALCIUM S/P/B 10.0 8.5 - 10.1 MG/DL 02/18/2023 7:00 AM CDT [facility] ANION GAP 6.9 5.0 - 15.0 MMOL/L 02/18/2023 7:00 AM CDT [facility] OSMOLALITY (CALC) 291 MOSM/KG 023 7:00 AM CDT [facility] Comment:REFERENCE RANGE NOT ESTABLISHED GFR ESTIMATE 42(L) >90 ML/MIN/1. 73 M2 02/18/2023 7:00 AM CDT [facility] GFR NOTES GFR REFERENCE S: 02/18/2023 7:00 AM CDT [facility] Comment: THE ESTIMATED GFR [...] ml/min/1.73 m2 G5,KIDNEY FAILURE: <15 ml/min/1.73 m2 02/18/2023 6:20 AM CDT us Daniel Dupree MD LABORATORY Final Result [facility] [address] [place] [address], [id number] * (ABNORMAL) POCT glucose (02/17/2023 9:37 PM CDT) GLUCOSE POC 257(H) 70 - 109 02/17/2023 9:39 PM CDT [facility] 02/17/2023 9:37 PM CDT us Daniel Dupree MD POCT ORDERABLES - DEVICE Final Result Performing Organization Address City/[facility]/ZIP Co de Phone Number [facility] [address] [place] [address], [phone] * (ABNORMAL) POCT glucose (02/17/2023 4:14 PM CDT) GLUCOSE POC 278(H) 70 - 109 02/17/2023 4:17 PM CDT [facility] 02/17/2023 4:14 PM CDT us Daniel Dupree MD POCT ORDERABLES - DEVICE Final Result Performing Organization Address [facility] Co de Phone Number [facility] [address] [place] [address], [place] [phone] * (ABNORMAL) PROTIME/INR, VENOUS - Today (02/17/2023 11:47 AM CDT) PROTIME 17.6(H) 9.4 - 12.5 SEC 02/17/2023 12:47 PM CDT [facility] INR 1.6(H) 0.8 - 1.1 02/17/2023 12:47 PM CDT [facility] 02/17/2023 11:4 7 AM CDT us Daniel Dupree MD LABORATORY Final Result Performing Organization Address [facility] Co de Phone Number [facility] [address] [place] [address], [place] [phone] * (ABNORMAL) HEPATIC FUNCTION PANEL (02/17/2023 11:46 AM CDT) BILIRUBIN TOTAL S/P/B 1.0 0.2 - 1.0 MG/DL 02/17/2023 12:54 PM CDT [facility] BILIRUBIN DIRECT S/P/B 0.3(H) 0.0 - 0.2 MG/DL 02/17/2023 12:54 PM CDT [facility] ALKALINE PHOSPHATASE S/P/B 177(H) 45 - 115 U/L 02/17/2023 12:54 PM CDT [facility] AST 28 15 - 37 U/L 02/17/2023 12:54 PM CDT [facility] ALT 27 16 - 61 U/L 02/17/2023 12:54 PM CDT [facility] TOTAL PROTEIN S/P/B 8.2 6.4 - 8.2 G/DL 02/17/2023 12:54 PM CDT [facility] ALBUMIN S/P/B 3.1(L) 3.4 - 5.0 G/DL 02/17/2023 12:54 PM CDT [facility] 02/17/2023 11:4 6 AM CDT us Daniel Dupree MD LABORATORY Final Result Performing Organization Address [facility] Co de Phone Number [facility] [address] [place] [address], [id number] * (ABNORMAL) POCT glucose (02/17/2023 11:33 AM CDT) GLUCOSE POC 227(H) 70 - 109 02/17/2023 11:39 AM CDT [facility] 02/17/2023 11:3 3 AM CDT us Daniel Dupree MD POCT ORDERABLES - DEVICE Final Result Performing Organization Address [facility] Co de Phone Number [facility] [address] [place] [address], [place] [phone] * (ABNORMAL) POCT glucose (02/17/2023 8:36 AM CDT) GLUCOSE POC 276(H) 70 - 109 02/17/2023 8:47 AM CDT [facility] Comment:RN Notified 02/17/2023 8:36 AM CDT us Daniel Dupree MD POCT ORDERABLES - DEVICE Final Result Performing Organization Address [facility] Co de Phone Number [facility] [address] [place] [address], [phone] * (ABNORMAL) HEMOGLOBIN, GLYCOSYLATED (02/17/2023 5:06 AM CDT) HGB A1C 8.0(H) <5.7 % 02/17/2023 8:34 AM CDT [facility] ESTIMATED AVG GLUCOSE 183(H) 74 - 114 MG/DL 02/17/2023 8:34 AM CDT [facility] 02/17/2023 5:06 AM CDT us Daniel Dupree MD LABORATORY Final Result [facility] [address] [place] [address], [id number] * (ABNORMAL) MAGNESIUM (02/17/2023 5:06 AM CDT) MAGNESIUM 2.7(H) 1.6 - 2.6 MG/DL 02/17/2023 5:54 AM CDT [facility] 02/17/2023 5:06 AM CDT us Daniel Dupree MD LABORATORY Final Result [facility] [address] [place] [address], [phone] * (ABNORMAL) BASIC METABOLIC PANEL (02/17/2023 5:06 AM CDT) SODIUM S/P/B 131(L) 136 - 145 MMOL/L 02/17/2023 5:54 AM CDT [facility] POTASSIUM S/P/B 3.9 3.5 - 5.1 MMOL/L 02/17/2023 5:54 AM CDT [facility] CHLORIDE S/P/B 97(L) 98 - 107 MMOL/L 02/17/2023 5:54 AM T [facility] CO2 26.9 21.0 - 32.0 MMOL/L 02/17/2023 5:54 AM T [facility] GLUCOSE 115(H) 74 - 106 MG/DL 02/17/2023 5:54 AM T [facility] BUN 64(H) 7 - 18 MG/DL 02/17/2023 5:54 AM T [facility] CREATININE S/P/B 1.68(H) 0.70 - 1.30 MG/DL 02/17/2023 5:54 AM T [facility] CALCIUM S/P/B 9.5 8.5 - 10.1 MG/DL 02/17/2023 5:54 AM [facility] ANION GAP 7.1 5.0 - 15.0 MMOL/L 02/17/2023 5:54 AM T [facility] OSMOLALITY (CALC) 291 MOSM/KG 023 5:54 AM [facility] Comment:REFERENCE RANGE NOT ESTABLISHED GFR ESTIMATE 44(L) >90 ML/MIN/1. 73 M2 02/17/2023 5:54 AM [facility] GFR NOTES GFR REFERENCE S: 02/17/2023 5:54 AM [facility] Comment: THE ESTIMATED GFR [...] ml/min/1.73 m2 G5,KIDNEY FAILURE: <15 ml/min/1.73 m2 02/17/2023 5:06 AM CDT Daniel Dupree MD LABORATORY Final Result [facility] [address] [place] [address], [phone] * (ABNORMAL) CBC W/DIFF AUTOMATED (02/17/2023 5:06 AM CDT) WBC 10.40 4.00 - 10.80 x10'3/uL 02/17/2023 5:25 AM CDT [facility] RBC 3.84(L) 4.50 - 6.10 x10'6/uL 02/17/2023 5:25 AM CDT [facility] HGB 9.1(L) 13.0 - 18.0 G/DL 02/17/2023 5:25 AM CDT [facility] HCT 31.0(L) 37.0 - 52.0 % 02/17/2023 5:25 AM CDT [facility] MCV 80.7 78.0 - 100.0 FL 02/17/2023 5:25 AM CDT [facility] MCH 23.7(L) 27.0 - 31.0 PG 02/17/2023 5:25 AM CDT [facility] MCHC 29.4(L) 33.0 - 36.0 G/DL 02/17/2023 5:25 AM CDT [facility] RDW 20.5(H) 11.5 - 14.5 % 02/17/2023 5:25 AM CDT [facility] PLT 204 150 - 350 x10'3/uL 02/17/2023 5:25 AM CDT [facility] MPV 10.6(H) 7.4 - 10.4 FL 02/17/2023 5:25 AM CDT [facility] ABS. NEUTROPHILS 7.01 1.60 - 8.30 x10'3/uL 02/17/2023 5:25 AM CDT [facility] ABS. LYMPHOCYTES 1.61 0.80 - 4.70 x10'3/uL 02/17/2023 5:25 AM CDT [facility] ABS. MONOCYTES 1.15 0.00 - 1.50 x10'3/uL 02/17/2023 5:25 AM CDT [facility] ABS. EOSINOPHILS 0.53(H) 0.00 - 0.40 x10'3/uL 02/17/2023 5:25 AM CDT [facility] ABS. BASOPHILS 0.06 0.00 - 0.20 x10'3/uL 02/17/2023 5:25 AM CDT [facility] ABS. IMMATURE GRANULOCYTES 0.04(H) 0.00 - 0.03 x10'3/uL 02/17/2023 5:25 AM CDT [facility] ABS. NUCLEATED RBC'S 0.00 0.0 x10'3/uL 02/17/2023 5:25 AM CDT [facility] 02/17/2023 5:06 AM CDT us Daniel Dupree MD LABORATORY Final Result Performing Organization Address City/[facility]/ZIP Co de Phone Number [facility] [address] [place] [id number], [phone] * (ABNORMAL) POCT glucose (02/16/2023 8:43 PM CDT) GLUCOSE POC 286(H) 70 - 109 02/16/2023 8:44 PM CDT [facility] 02/16/2023 8:43 PM CDT us Daniel Dupree MD POCT ORDERABLES - DEVICE Final Result Performing Organization Address City/[facility]/ZIP Co de Phone Number [facility] [address] [place] [address], [phone] * (ABNORMAL) POCT glucose (02/16/2023 4:39 PM CDT) GLUCOSE POC 237(H) 70 - 109 02/16/2023 4:46 PM CDT [facility] 02/16/2023 4:39 PM CDT us Daniel Dupree MD POCT ORDERABLES - DEVICE Final Result Performing Organization Address City/[facility]/ZIP Co de Phone Number [facility] [address] [place] [address], [phone] * (ABNORMAL) TROPONIN, QUANT (02/16/2023 4:25 PM CDT) TROPONIN I HIGH SENSITIVITY 87(H) 0 - 78 ng/L 02/16/2023 4:58 PM CDT [facility] 02/16/2023 4:25 PM CDT us Segundo [place] MD LABORATORY Final Result Performing Organization Address [facility]/ZIP Co de Phone Number [facility] [address] [place] [address], [id number] * (ABNORMAL) POCT glucose (02/16/2023 11:19 AM CDT) GLUCOSE POC 249(H) 70 - 109 02/16/2023 11:24 AM CDT [facility] 02/16/2023 11:1 9 AM CDT us Daniel Dupree MD POCT ORDERABLES - DEVICE Final Result Performing Organization Address [facility]/ZIP Co de Phone Number [facility] [address] [place] [address], [id number] * (ABNORMAL) TROPONIN, QUANT (02/16/2023 11:12 AM CDT) TROPONIN I HIGH SENSITIVITY 97(H) 0 - 78 ng/L 02/16/2023 11:51 AM CDT [facility] 02/16/2023 11:1 2 AM CDT us Segundo [place] MD LABORATORY Final Result Performing Organization Address City/[facility]/ZIP Co de Phone Number [facility] [address] [place] [address], [place] [phone] * (ABNORMAL) POCT glucose (02/16/2023 8:01 AM CDT) GLUCOSE POC 306(H) 70 - 109 02/16/2023 8:02 AM CDT [facility] 02/16/2023 8:01 AM CDT us Daniel Dupree MD POCT ORDERABLES - DEVICE Final Result Performing Organization Address [facility] Co de Phone Number [facility] [address] [place] [address], [place] [phone] * (ABNORMAL) POCT glucose (02/16/2023 6:40 AM CDT) GLUCOSE POC 222(H) 70 - 109 02/16/2023 6:42 AM CDT [facility] 02/16/2023 6:40 AM CDT us Segundo Montana MD POCT ORDERABLES - DEVICE Final Result Performing Organization Address [facility] Co de Phone Number [facility] [address] [place] [address], [place] [phone] * XR CHEST PORTABLE (02/16/2023 5:45 AM CDT) Anatomical Region Laterality Modality Chest Radiographic Stephie ging 02/16/2023 6:07 AM CDT Impressions 02/16/2023 6:09 AM CDT IMPRESSION: 1. No significant change since 02/07/2023 and no new or worsening pulmonary abnormality. 2. ??Stable cardiomegaly and postop changes of median sternotomy and valvular prosthesis. 3. ??Stable interstitial opacities in lower two thirds of bilateral lungs, pulmonary edema versus chronic interstitial scarring with atypical pneumonia less likely. Referred By: PROVIDER NON-STAFF Interpreted By: Thelma Esposito MD, 02/16/2023 6:07 AM Narrative 02/16/2023 6:09 AM CDT EXAMINATION: ??XR Portable CXR, 1 View INDICATION: ??Leukocytosis, fall, malaise COMPARISON: Portable AP chest x-ray 02/07/2023. FINDINGS: Stable cardiomegaly and postop changes of median sternotomy and valvular prosthesis. ??quality assurance monitor final leads overlie the chest and abdomen. ??Stable prominence of interstitial markings in lower two thirds of bilateral lungs, chronic interstitial scarring versus mild persistent interstitial pulmonary edema. ??No new infiltrate, consolidation, pleural effusion, or pneumothorax. ??Osteopenia with stable old healed left rib fractures. ??No acute osseous abnormality. Procedure Note Thelma Esposito MD - 02/16/2023 EXAMINATION: XR Portable CXR, 1 View INDICATION: Leukocytosis, fall, malaise COMPARISON: Portable AP chest x-ray 02/07/2023. FINDINGS: Stable cardiomegaly and postop changes of median sternotomy and valvularprosthesis. quality assurance monitor final leads overlie the chest and abdomen. Stableprominence of interstitial markings in lower two thirds of bilaterallungs, chronic interstitial scarring versus mild persistent interstitialpulmonary edema. No new infiltrate, consolidation, pleural effusion, orpneumothorax. Osteopenia with stable old healed left rib fractures. Noacute osseous abnormality. IMPRESSION: 1. No significant change since 02/07/2023 and no new or worsening pulmonaryabnormality. 2. Stable cardiomegaly and postop changes of median sternotomy andvalvular prosthesis. 3. Stable interstitial opacities in lower two thirds of bilateral lungs,pulmonary edema versus chronic interstitial scarring with atypicalpneumonia less likely. Referred By: PROVIDER NON-STAFF Interpreted By: Thelma Esposito MD, 02/16/2023 6:07 AM us Segundo Montana MD GENERAL IMAGING Final Result * VITAMIN B-12 (02/16/2023 5:32 AM CDT) VITAMIN B12 S/P/B 564 193 - 986 PG/ML 02/16/2023 6:45 AM CDT [facility] 02/16/2023 5:32 AM CDT us Segundo Montana MD LABORATORY Final Result Performing Organization Address City/[facility]/ZIP Co de Phone Number [facility] [address] [place] [address], [id number] * FERRITIN (02/16/2023 5:32 AM CDT) FERRITIN 26.2 26.0 - 388.0 NG/ML 02/16/2023 6:20 AM CDT [facility] 02/16/2023 5:32 AM CDT us Segundo Montana MD LABORATORY Final Result Performing Organization Address City/[facility]/ZIP Co de Phone Number [facility] [address] [place] [address], [id number] * (ABNORMAL) IRON SATURATION PANEL (FE,IBC,%SAT) (02/16/2023 5:32 AM CDT) IRON 48(L) 65 - 175 MCG/DL 02/16/2023 6:20 AM CDT [facility] IRON BINDING CAPACITY 389 250 - 450 MCG/DL 02/16/2023 6:20 AM CDT [facility] IRON SATURATION 12 % 6:20 AM CDT [facility] Comment:REFERENCE RANGE NOT ESTABLISHED 02/16/2023 5:32 AM CDT Segundo Montana MD LABORATORY Final Result Performing Organization Address [facility] de Phone Number [facility] [address] [place] [address], [id number] * CULTURE, BACTERIA BLOOD X2 (02/16/2023 5:03 AM CDT) SPEC DESCRIPTION BLOOD 02/17/20 5:49 AM CDT [facility] SPECIAL REQUESTS BLOOD-AERO BIC BOTTLE ONLY 02/16/2023 5:49 AM CDT [facility] CULTURE RESULT NO GROWTH 5 DAYS 02/21/2023 7:30 AM CDT [facility] BLOOD SPECIMEN OBTAINED FOR BLOOD CULTURE / Unknown 02/16/2023 5:03 AM CDT 02/16/2023 5:49 AM CDT Segundo Montana MD MICROBIOLOGY - GENERAL ORDERAB LES Final Result Performing Organization Address [facility] Co de Phone Number [facility] [address] [place] [address], [place] [phone] * PROCALCITONIN (PCT) (02/16/2023 5:02 AM CDT) Procalcitonin 0.44 <0.50 NG/ML 02/16/2023 10:36 AM CDT [facility] 02/16/2023 5:02 AM CDT us Segundo Montana MD LABORATORY Final Result Performing Organization Address [facility] Co de Phone Number [facility] [address] [place] [address], [id number] * CULTURE, BACTERIA BLOOD X2 (02/16/2023 5:01 AM CDT) SPEC DESCRIPTION BLOOD 02/16/2023 4:54 AM CDT [facility] SPECIAL REQUESTS NO SPECIAL REQUEST 02/16/2023 4:54 AM CDT [facility] CULTURE RESULT NO GROWTH 5 DAYS 02/21/2023 7:30 AM CDT [facility] BLOOD SPECIMEN OBTAINED FOR BLOOD CULTURE / Unknown 02/16/2023 5:01 AM CDT 02/16/2023 5:02 AM CDT Segundo Montana MD MICROBIOLOGY - GENERAL ORDERAB LES Final Result Performing Organization Address [facility] Co de Phone Number [facility] [address] [place] [address], [place] [phone] [id number] * (ABNORMAL) PROTIME/INR, VENOUS (PROTHROMBIN TIME) (02/16/2023 4:54 AM CDT) PROTIME 21.0(H) 9.4 - 12.5 SEC 02/16/2023 5:29 AM CDT [facility] INR 1.8(H) 0.8 - 1.1 02/16/2023 5:29 AM CDT [facility] 02/16/2023 4:54 AM CDT us Segundo Montana MD LABORATORY Final Result Performing Organization Address [facility] Co de Phone Number [facility] [address] [place] [address], [id number] * (ABNORMAL) THYROID STIM HORMONE, TSH (02/16/2023 4:54 AM CDT) Pathologist [facility] [place] TSH 5.480(H) 0.358 - 3.740 uIU/ML 02/16/2023 5:52 AM CDT [facility] Comment: ASSAY PERFORMED BY CHEMILUMINESCENCE METHODOLOGY USING SIEMENS DIMENSION VISTA REAGENT. PATIENT RESULTS DETERMINED BY ASSAYS USING DIFFERENT MANUFACTURERS FOR METHODS MAY NOT BE COMPARABLE. 02/16/2023 4:54 AM CDT us Segundo Montana MD LABORATORY Final Result Performing Organization Address [facility] de Phone Number [facility] [address] [place] [address], [id number] * (ABNORMAL) TROPONIN, QUANT (02/16/2023 4:54 AM CDT) [facility] TROPONIN I HIGH SENSITIVITY 106(H) 0 - 78 ng/L 02/16/2023 5:52 AM CDT [facility] 02/16/2023 4:54 AM CDT us Segundo Montana MD LABORATORY Final Result Performing Organization Address [facility] de Phone Number [facility] [address] [place] [address], [place] [phone] * (ABNORMAL) HEMOGLOBIN, GLYCATED (02/16/2023 4:54 AM CDT) [facility] HGB A1C 8.2(H) <5.7 % 02/16/2023 5:37 AM CDT [facility] ESTIMATED AVG GLUCOSE 189(H) 74 - 114 MG/DL 02/16/2023 5:37 AM CDT [facility] 02/16/2023 4:54 AM CDT us Segundo Montana MD LABORATORY Final Result Performing Organization Address City/[facility] Co de Phone Number [facility] [address] [place] [address], [place] [phone] * (ABNORMAL) MAGNESIUM (02/16/2023 4:54 AM CDT) [facility] MAGNESIUM 3.2(H) 1.6 - 2.6 MG/DL 02/16/2023 5:52 AM CDT [facility] 02/16/2023 4:54 AM CDT Segundo Montana MD LABORATORY Final Result [facility] [address] [place] [address], [id number] * (ABNORMAL) BASIC METABOLIC PANEL (02/16/2023 4:54 AM CDT) [facility] SODIUM S/P/B 134(L) 136 - 145 MMOL/L 02/16/2023 5:52 AM CDT [facility] POTASSIUM S/P/B 3.8 3.5 - 5.1 MMOL/L 02/16/2023 5:52 AM CDT [facility] CHLORIDE S/P/B 99 98 - 107 MMOL/L 02/16/2023 5:52 AM CDT [facility] CO2 27.2 21.0 - 32.0 MMOL/L 02/16/2023 5:52 AM CDT [facility] GLUCOSE 216(H) 74 - 106 MG/DL 02/16/2023 5:52 AM CDT [facility] BUN 76(H) 7 - 18 MG/DL 02/16/2023 5:52 AM CDT [facility] CREATININE S/P/B 1.90(H) 0.70 - 1.30 MG/DL 02/16/2023 5:52 AM CDT [facility] CALCIUM S/P/B 9.2 8.5 - 10.1 MG/DL 02/16/2023 5:52 AM CDT [facility] ANION GAP 7.8 5.0 - 15.0 MMOL/L 02/16/2023 5:52 AM CDT [facility] OSMOLALITY (CALC) 307 MOSM/KG 023 5:52 AM CDT [facility] Comment:REFERENCE RANGE NOT ESTABLISHED GFR ESTIMATE 38(L) >90 ML/MIN/1. 73 M2 02/16/2023 5:52 AM CDT [facility] GFR NOTES GFR REFERENCE S: 02/16/2023 5:52 AM CDT [facility] Comment: THE ESTIMATED GFR [...] ml/min/1.73 m2 G5,KIDNEY FAILURE: <15 ml/min/1.73 m2 02/16/2023 4:54 AM CDT Segundo Montana MD LABORATORY Final Result [facility] [address] [place] [id number], [id number] * (ABNORMAL) CBC W/DIFF AUTOMATED (02/16/2023 4:54 AM CDT) WBC 13.19(H) 4.00 - 10.80 x10'3/uL 02/16/2023 5:12 AM CDT [facility] RBC 4.02(L) 4.50 - 6.10 x10'6/uL 02/16/2023 5:12 AM CDT [facility] HGB 9.6(L) 13.0 - 18.0 G/DL 02/16/2023 5:12 AM CDT [facility] HCT 32.2(L) 37.0 - 52.0 % 02/16/2023 5:12 AM CDT [facility] MCV 80.1 78.0 - 100.0 FL 02/16/2023 5:12 AM CDT [facility] MCH 23.9(L) 27.0 - 31.0 PG 02/16/2023 5:12 AM CDT [facility] MCHC 29.8(L) 33.0 - 36.0 G/DL 02/16/2023 5:12 AM CDT [facility] RDW 20.4(H) 11.5 - 14.5 % 02/16/2023 5:12 AM CDT [facility] PLT 193 150 - 350 x10'3/uL 02/16/2023 5:12 AM CDT [facility] MPV 10.6(H) 7.4 - 10.4 FL 02/16/2023 5:12 AM CDT [facility] ABS. NEUTROPHILS 9.51(H) 1.60 - 8.30 x10'3/uL 02/16/2023 5:12 AM CDT [facility] ABS. LYMPHOCYTES 1.52 0.80 - 4.70 x10'3/uL 02/16/2023 5:12 AM CDT [facility] ABS. MONOCYTES 1.61(H) 0.00 - 1.50 x10'3/uL 02/16/2023 5:12 AM CDT [facility] ABS. EOSINOPHILS 0.46(H) 0.00 - 0.40 x10'3/uL 02/16/2023 5:12 AM CDT [facility] ABS. BASOPHILS 0.03 0.00 - 0.20 x10'3/uL 02/16/2023 5:12 AM CDT [facility] ABS. IMMATURE GRANULOCYTES 0.06(H) 0.00 - 0.03 x10'3/uL 02/16/2023 5:12 AM CDT [facility] ABS. NUCLEATED RBC'S 0.00 0.0 x10'3/uL 02/16/2023 5:12 AM CDT [facility] 02/16/2023 4:54 AM CDT Segundo Montana MD LABORATORY Final Result [facility] [address] [place] [address], [id number] * ECG 12 lead (02/16/2023 4:44 AM CDT) 02/16/2023 4:44 AM CDT Narrative [facility] - 02/16/2023 9:46 PM CDT ? [facility] ?[address], [place] ??[address] ? Test Date: ?2023-02-16 Pat Name: ? OBIE SIMS ?Department: ?? 1 ? Room: ? 506AA Gender: ? Male ? 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 MS : ?1955 ? Requested By: SEGUNDO MONTANA Order Number: [id number] ? Reading MD: ?? Karolina Parekh ? Measurements Intervals ?[place] ? Rate: ? 83 ? P: ?-7 GA: ? 263 ?QRS: ?-39 QRSD: ? 151 ?T: ?130 QT: ? 425 ? QTc: ?501 ? Interpretive Statements SINUS RHYTHM WITH FIRST DEGREE AV BLOCK MARKED LEFT AXIS DEVIATION LEFT BUNDLE BRANCH BLOCK Procedure Note Karolina Parekh MD - 02/16/2023 [place] [address] [place] [address] Test Date: 2023-02-16 Pat Name: OBIE SIMS Department: 1 Room: [facility] Gender: Male 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: : 1955 Requested By: SEGUNDO MONTANA Order Number: [id number] Sage MD: Martin Measurements Intervals [place] Rate: 83 P: -7 GA: 263 QRS: -39 QRSD: 151 T: 130 QT: 425 QTc: 501 Interpretive Statements SINUS RHYTHM WITH FIRST DEGREE AV BLOCK MARKED LEFT AXIS DEVIATION LEFT BUNDLE BRANCH BLOCK us Segundo Montana MD ECG ORDERABLES Final Result Performing Organization Address City/[facility]/ZIP Co de Phone Number [facility] * (ABNORMAL) POCT glucose (02/16/2023 3:20 AM CDT) GLUCOSE POC 221(H) 70 - 109 02/16/2023 3:21 AM CDT [facility] 02/16/2023 3:20 AM CDT us Segundo Montana MD POCT ORDERABLES - DEVICE Final Result Performing Organization Address City/[facility] Co de Phone Number [facility] [address] [place] [phone], [id number] documented in this encounter Visit Diagnoses Diagnosis NSTEMI (non-ST elevated myocardial infarction) ([facility])- Primary Acute myocardial infarction, subendocardial infarction, episode of care unspecified documented in this encounter Admitting Diagnoses Diagnosis NSTEMI (non-ST elevated myocardial infarction) ([facility]) Acute myocardial infarction, subendocardial infarction, episode of care unspecified documented in this encounter Administered Medications Inactive Administered Medications - up to 3 most recent administrations Medication Order MAR Action Action Date Dose Rate Site acetaminophen (TYLENOL) tablet 650 mg 650 mg, Oral, Every 6 hours PRN, Mild pain (Scale 1 - 3), Starting on Wed02/16/23 at 0431, Until Wed02/18/23 at 1527, Maximum dose of acetaminophen is 4000 mg from all sources in 24 hours. Given 02/17/2023 3:35 AM CDT 650 mg Given 02/16/2023 9:26 PM CDT 650 mg Given 02/16/2023 10:02 AM CDT 650 mg allopurinol (ZYLOPRIM) tablet 300 mg 300 mg, Oral, Daily, First dose on Wed02/16/23 at 0900, Until Discontinued Given 02/18/2023 8:10 AM CDT 300 mg Given 02/17/2023 9:58 AM CDT 300 mg Given 02/16/2023 9:41 AM CDT 300 mg aspirin chewable tablet 81 mg 81 mg, Oral, Daily, First dose on Wed02/16/23 at 0900, Until Discontinued Given 02/18/2023 8:09 AM CDT 81 mg Given 02/17/2023 9:58 AM CDT 81 mg Given 02/16/2023 9:41 AM CDT 81 mg atorvastatin (LIPITOR) tablet 80 mg 80 mg, Oral, Nightly at bedtime, First dose on Wed02/16/23 at 2100, Until Discontinued Given 02/17/2023 9:40 PM CDT 80 m g Given 02/16/2023 9:24 PM CDT 80 mg carvedilol (COREG) tablet 3.125 mg 3.125 mg, Oral, 2 times daily, First dose on Wed02/16/23 at 0900, Until Discontinued, Take with meal or snack Given 02/18/2023 8:10 AM CDT 3.125 mg Given 02/17/2023 9:40 PM CDT 3.125 mg Given 02/17/2023 9:58 AM CDT 3.125 mg empagliflozin (JARDIANCE) tablet 25 mg 25 mg, Oral, Daily, First dose on Wed02/16/23 at 0900, Until Discontinued Given 02/18/2023 8:13 AM CDT 25 mg Given 02/17/2023 12:38 PM CDT 25 mg Given 02/16/2023 9:42 AM CDT 25 mg enoxaparin (LOVENOX) 40 MG/0.4ML syringe 40 mg 40 mg, Subcutaneous, Nightly (enoxaparin), First dose on Wed02/16/23 at 2100, Until Discontinued, Administer by deep SubQ injection alternating between the left or right anterolateral and left or right posterolateral abdominal wall. Given 02/17/2023 9:41 PM CDT 40 mg Left Lower Abdomen Given 02/16/2023 9:27 PM CDT 40 mg Le ft Lower Abdomen fluticasone (FLOVENT HFA) 110 MCG/ACT inhaler 1 puff 1 puff, Inhalation, 2 times daily, First dose on Wed02/16/23 at 0800, Until Discontinued, Following administration, rinse mouth with water after use (do not swallow) to reduce risk of oral candidiasis. Given 02/17/2023 9:50 PM CDT 1 puff Given 02/17/2023 9:59 AM CDT 1 puff Given 02/16/2023 9:29 PM CDT 1 puff furosemide (LASIX) tablet 40 mg 40 mg, Oral, Daily, First dose on Wed02/17/23 at 0900, Until Discontinued Given 02/18/2023 8:10 AM CDT 40 mg Given 02/17/2023 9:58 AM CDT 40 mg gabapentin (NEURONTIN) capsule 400 mg 400 mg, Oral, Daily, First dose on Wed02/16/23 at 0900, Until Discontinued Given 02/18/2023 8:10 AM CDT 400 mg Given 02/17/2023 9:57 AM CDT 400 mg Given 02/16/2023 9:41 AM CDT 400 mg gabapentin (NEURONTIN) capsule 800 mg 800 mg, Oral, Nightly, First dose (after last reorder) on Wed02/16/23 at 2100, Until Discontinued Given 02/17/2023 9:41 PM CDT 800 mg Given 02/16/2023 9:25 PM CDT 800 mg HYDROcodone-acetaminophen (NORCO) 7.5-325 MG tablet 1 tablet 1 tablet, Oral, Every 8 hours PRN, Moderate pain (Scale 4 - 7), Starting on Wed02/17/23 at 1301, Until Wed02/18/23 at 1527, Maximum dose of acetaminophen is 4000 mg from all sources in 24 hours. Given 02/18/2023 8:09 AM CDT 1 tablet Given 02/17/2023 10:37 PM CDT 1 tablet Given 02/17/2023 1:19 PM CDT 1 tablet HYDROmorphone (DILAUDID) injection 0.5 mg 0.5 mg, Intravenous, Once, 1 dose, On Wed02/16/23 at 1445, Administer slowly over at least 2-3 minutes. Given 02/16/2023 2:32 PM CDT 0.5 mg HYDROmorphone (DILAUDID) injection 0.5 mg 0.5 mg, Intravenous, Once, 1 dose, On Wed02/17/23 at 1630, Administer slowly over at least 2-3 minutes. Given 02/17/2023 4:35 PM CDT 0.5 mg insulin glargine (LANTUS) injection 15 Units 15 Units, Subcutaneous, Nightly at bedtime, First dose on Wed02/16/23 at 2100, Until Discontinued Given 02/16/2023 9:30 PM CDT 15 Units Left Lower Abdomen insulin glargine (LANTUS) injection 20 Units 20 Units, Subcutaneous, Nightly at bedtime, First dose (after last modification) on Wed02/17/23 at 2100, Until Discontinued Given 02/17/2023 9:42 PM CDT 20 Units Left Arm insulin lispro (HUMALOG) injection 0-8 Units 0-8 Units, Subcutaneous, 4 times daily before meals and nightly, First dose on Wed02/16/23 at 0700, Until Discontinued, From sliding scale insulin subcut med order set - For TDI 30 - 59 units Blood Glucose: (Less than 70: Initiate Hypoglycemia Standing Orders) (70 - 149, administer 0 units) (150 - 199, administer 2 units) (200 - 249, administer 3 units) (250 - 299, administer 5 units) (300 - 349, administer 7 units) (Greater than 349, administer 8 units and Call Physician) Given 02/18/2023 7:49 AM CDT 2 Units Left Arm Given 02/17/2023 10:32 PM CDT 5 Units L eft Arm Given 02/17/2023 4:35 PM CDT 5 Units Ri ght Arm ipratropium-albuterol (COMBIVENT RESPIMAT) 20-100 MCG/ACT inhaler 1 puff 1 puff, Inhalation, 4 times daily, First dose on Wed02/16/23 at 0800, Until Discontinued, Shake Well. Prime inhaler prior to first use. Common canister Given 02/17/2023 9:45 PM CDT 1 puff Given 02/17/2023 4:34 PM CDT 1 puff Given 02/17/2023 1:18 PM CDT 1 puff lidocaine 4 % patch 1 patch 1 patch, Transdermal, Administer over 12 Hours, Every 24 hours, First dose on Wed02/16/23 at 1315, Until Discontinued Patch Applied 02/16/2023 1:19 PM CDT 1 patch Neck ondansetron (ZOFRAN) injection 4 mg 4 mg, Intravenous, Every 8 hours PRN, Nausea, Vomiting, Starting on Wed02/16/23 at 0431, Until Wed02/18/23 at 1527, IV push over 2-5 minutes. pantoprazole EC (PROTONIX) tablet 40 mg 40 mg, Oral, Daily, First dose on Wed02/16/23 at 0900, Until Discontinued, Do not break, chew, or crush. Given 02/18/2023 8:09 AM CDT 40 mg Given 02/17/2023 9:58 AM CDT 40 mg Given 02/16/2023 9:41 AM CDT 40 mg rOPINIRole (REQUIP) tablet 4 mg 4 mg, Oral, Nightly at bedtime, First dose on Wed02/16/23 at 2100, Until Discontinued Given 02/17/2023 9:41 PM CDT 4 mg Given 02/16/2023 9:24 PM CDT 4 mg sertraline (ZOLOFT) tablet 50 mg 50 mg, Oral, Daily, First dose on Wed02/16/23 at 0900, Until Discontinued Given 02/18/2023 8:10 AM CDT 50 mg Given 02/17/2023 9:57 AM CDT 50 mg Given 02/16/2023 9:41 AM CDT 50 mg spironolactone (ALDACTONE) tablet 25 mg 25 mg, Oral, Daily, First dose on Wed02/17/23 at 0900, Until Discontinued, HAZARDOUS MEDICATION: wear single chemotherapy approved gloves. Do not open or split. If crushing, use approved closed-system crushing device for hazardous medications. Given 02/18/2023 8:09 AM CDT 25 mg Given 02/17/2023 9:57 AM CDT 25 mg warfarin (COUMADIN) pharmacy to dose placeholder Oral, See admin instructions, Starting on Wed02/17/23 at 0751, Until Wed02/18/23 at 1527, Warfarin Placeholder Only: Do NOT document administrations on this placeholder. (Use medication on OCT to document administrations or contact pharmacy if medication order not entered.) warfarin (COUMADIN) tablet 6 mg 6 mg, Oral, Once, 1 dose, On Wed02/17/23 at 1700, HAZARDOUS MEDICATION: wear single chemotherapy approved gloves. Do not open or split. If crushing, use approved closed-system crushing device for hazardous medications. Given 02/17/2023 5:36 PM CDT 6 mg warfarin (COUMADIN) tablet 6 mg 6 mg, Oral, Once, 1 dose, On Wed02/18/23 at 1700, HAZARDOUS MEDICATION: wear single chemotherapy approved gloves. Do not open or split. If crushing, use approved closed-system crushing device for hazardous medications. documented in this encounter Active and Recently Administered Medications Times are shown in CDT. Scheduled Medication Order 02/16/2023 02/17/2023 02/18/2023 allopurinol (ZYLOPRIM) tablet 300 mg 300 mg, Oral, Daily, First dose on Wed02/16/23 at 0900, Until Discontinued 940 (Given - Provider: Tamar Ceron RN) 0958 (Given - Provider: Chantal Otero RN) 0810 (Given - Provider: Florencio Fernández, YUNI) aspirin chewable tablet 81 mg 81 mg, Oral, Daily, First dose on Wed02/16/23 at 0900, Until Discontinued 940 (Given - Provider: Tamar Ceron RN) 0958 (Given - Provider: Chantal Otero, YUNI) 0809 (Given - Provider: Florencio Fernández, YUNI) atorvastatin (LIPITOR) tablet 80 mg 80 mg, Oral, Nightly at bedtime, First dose on Wed02/16/23 at 2100, Until Discontinued 2123 (Given - Provider: Nikhil Haney, YUNI) 2139 (Given - Provider: Nikhil Haney, YUNI) carvedilol (COREG) tablet 3.125 mg 3.125 mg, Oral, 2 times daily, First dose on Wed02/16/23 at 0900, Until Discontinued, Take with meal or snack 0941 (Given - Provider: Tamar Ceron RN)2124 (Given - Provider: Nikhil Haney RN) 09 (Given - Provider: Chantal Otero, YUNI)2139 (Given - Provider: Nikhil Haney RN) 0810 (Given - Provider: Florencio Fernández, YUNI) empagliflozin (JARDIANCE) tablet 25 mg 25 mg, Oral, Daily, First dose on Wed02/16/23 at 0900, Until Discontinued 0942 (Given - Provider: Tamar Ceron RN) 1238 (Given - Provider: Chantal Otero RN) 0813 (Given - Provider: Florencio Fernández, YUNI) enoxaparin (LOVENOX) 40 MG/0.4ML syringe 40 mg(Linked Group 1) 40 mg, Subcutaneous, Nightly (enoxaparin), First dose on Wed02/16/23 at 2100, Until Discontinued, Administer by deep SubQ injection alternating between the left or right anterolateral and left or right posterolateral abdominal wall. 2126 (Given - Provider: Nikhil Haney RN) 2140 (Given - Provider: Nikhil Haney RN) fluticasone (FLOVENT HFA) 110 MCG/ACT inhaler 1 puff(Linked Group 2) 1 puff, Inhalation, 2 times daily, First dose on Wed02/16/23 at 0800, Until Discontinued, Following administration, rinse mouth with water after use (do not swallow) to reduce risk of oral candidiasis. 1000 (Given - Provider: Tamar Ceron RN)2128 (Given - Provider: Nikhil Haney RN) 958 (Given - Provider: Chantal Otero RN)215 (Given - Provider: Nikhil Haney RN) 0810 (Not Given - Provider: Florencio Fernández RN - Reason: Patient/family declined) furosemide (LASIX) tablet 40 mg 40 mg, Oral, Daily, First dose on Wed02/17/23 at 0900, Until Discontinued 0958 (Given - Provider: Chantal Otero RN) 0810 (Given - Provider: Florencio Fernández, YUNI) gabapentin (NEURONTIN) capsule 400 mg 400 mg, Oral, Daily, First dose on Wed02/16/23 at 0900, Until Discontinued 940 (Given - Provider: Tamar Ceron, RN) 57 (Given - Provider: Chantal Otero RN) 08 (Given - Provider: Florencio Fernández RN) gabapentin (NEURONTIN) capsule 800 mg 800 mg, Oral, Nightly, First dose (after last reorder) on Wed02/16/23 at 2100, Until Discontinued 2124 (Given - Provider: Nikhil Haney, YUNI) 2140 (Given - Provider: Nikhil Haney, YUNI) HYDROmorphone (DILAUDID) injection 0.5 mg (COMPLETED) 0.5 mg, Intravenous, Once, 1 dose, On Wed02/16/23 at 1445, Administer slowly over at least 2-3 minutes. 1431 (Given - Provider: Tamar Ceron RN) HYDROmorphone (DILAUDID) injection 0.5 mg (COMPLETED) 0.5 mg, Intravenous, Once, 1 dose, On Wed02/17/23 at 1630, Administer slowly over at least 2-3 minutes. 163 (Given - Provider: Yarelis Lawrence, YUNI) insulin glargine (LANTUS) injection 15 Units (CANCELED) 15 Units, Subcutaneous, Nightly at bedtime, First dose on Wed02/16/23 at 2100, Until Discontinued 2129 (Given - Provider: Nikhil Haney, YUNI) insulin glargine (LANTUS) injection 20 Units 20 Units, Subcutaneous, Nightly at bedtime, First dose (after last modification) on Wed02/17/23 at 2100, Until Discontinued 2141 (Given - Provider: Nikhil Haney, YUNI) insulin lispro (HUMALOG) injection 0-8 Units 0-8 Units, Subcutaneous, 4 times daily before meals and nightly, First dose on Wed02/16/23 at 0700, Until Discontinued, From sliding scale insulin subcut med order set - For TDI 30 - 59 units Blood Glucose: (Less than 70: Initiate Hypoglycemia Standing Orders) (70 - 149, administer 0 units) (150 - 199, administer 2 units) (200 - 249, administer 3 units) (250 - 299, administer 5 units) (300 - 349, administer 7 units) (Greater than 349, administer 8 units and Call Physician) 0648 (Given - Provider: Iva Lepe RN)1148 (Given - Provider: Tamar Ceron RN)1653 (Given - Provider: Tamar Ceron RN)2129 (Given - Provider: Nikhil Haney RN) 0842 (Given - Provider: Nikhil Haney RN)1239 (Given - Provider: Chantal Otero, YUNI)1635 (Given - Provider: Yarelis Lawrence RN)2232 (Given - Provider: Nikhil Haney RN) 0749 (Given - Provider: Nikhil Haney RN)1235 (Not Given - Provider: Florencio Fernández RN - Reason: Other - Comment: Discharge) ipratropium-albuterol (COMBIVENT RESPIMAT) 20-100 MCG/ACT inhaler 1 puff 1 puff, Inhalation, 4 times daily, First dose on Wed02/16/23 at 0800, Until Discontinued, Shake Well. Prime inhaler prior to first use. Common canister 1000 (Given - Provider: Tamar Ceron RN)1148 (Not Given - Provider: Tamar Ceron RN - Reason: Other - Comment: last dose given late)1614 (Given - Provider: Tamar Ceron RN)2129 (Given - Provider: Nikhil Haney RN) 1001 (Given - Provider: Chantal Otero RN)1318 (Given - Provider: Chantal Otero RN)1634 (Given - Provider: Yarelis Lawrence RN)2145 (Given - Provider: Nikhil Haney RN) 0811 (Not Given - Provider: Florencio Fernández RN - Reason: Patient/family declined)1129 (Not Given - Provider: Florencio Fernández RN - Reason: Patient/family declined) lidocaine 4 % patch 1 patch 1 patch, Transdermal, Administer over 12 Hours, Every 24 hours, First dose on Wed02/16/23 at 1315, Until Discontinued 1319 (Patch Applied - Provider: Tamar Ceron RN) 0844 (Not Given - Provider: Nikhil Haney RN - Reason: Other - Comment: patch not present on assessment)1321 (Not Given - Provider: Chantal Otero RN - Reason: Patient/family declined) 1235 (Not Given - Provider: Florencio Fernández, YUNI - Reason: Other - Comment: Discharge) pantoprazole EC (PROTONIX) tablet 40 mg 40 mg, Oral, Daily, First dose on Wed02/16/23 at 0900, Until Discontinued, Do not break, chew, or crush. 0941 (Given - Provider: Tamar Ceron RN) 0958 (Given - Provider: Chantal Otero RN) 0809 (Given - Provider: Florencio Fernández, YUNI) rOPINIRole (REQUIP) tablet 4 mg 4 mg, Oral, Nightly at bedtime, First dose on Wed02/16/23 at 2100, Until Discontinued 2123 (Given - Provider: Nikhil Haney, YUNI) 2140 (Given - Provider: Nikhil Haney, YUNI) sertraline (ZOLOFT) tablet 50 mg 50 mg, Oral, Daily, First dose on Wed02/16/23 at 0900, Until Discontinued 0941 (Given - Provider: Tamar Ceron RN) 0957 (Given - Provider: Chantal Otero RN) 0810 (Given - Provider: Florencio Fernández, YUNI) spironolactone (ALDACTONE) tablet 25 mg 25 mg, Oral, Daily, First dose on Wed02/17/23 at 0900, Until Discontinued, HAZARDOUS MEDICATION: wear single chemotherapy approved gloves. Do not open or split. If crushing, use approved closed-system crushing device for hazardous medications. 0957 (Given - Provider: Chantal Otero RN) 0809 (Given - Provider: Florencio Fernández, YUNI) warfarin (COUMADIN) pharmacy to dose placeholder(Linked Group 3) Oral, See admin instructions, Starting on Wed02/17/23 at 0751, Until Wed02/18/23 at 1527, Warfarin Placeholder Only: Do NOT document administrations on this placeholder. (Use medication on OCT to document administrations or contact pharmacy if medication order not entered.) warfarin (COUMADIN) tablet 6 mg (COMPLETED) 6 mg, Oral, Once, 1 dose, On Wed02/17/23 at 1700, HAZARDOUS MEDICATION: wear single chemotherapy approved gloves. Do not open or split. If crushing, use approved closed-system crushing device for hazardous medications. 1736 (Given - Provider: Yarelis Lawrence RN) warfarin (COUMADIN) tablet 6 mg 6 mg, Oral, Once, 1 dose, On Wed02/18/23 at 1700, HAZARDOUS MEDICATION: wear single chemotherapy approved gloves. Do not open or split. If crushing, use approved closed-system crushing device for hazardous medications. PRN Medication Order 02/16/2023 02/17/2023 02/18/2023 acetaminophen (TYLENOL) tablet 650 mg 650 mg, Oral, Every 6 hours PRN, Mild pain (Scale 1 - 3), Starting on Wed02/16/23 at 0431, Until Wed02/18/23 at 1527, Maximum dose of acetaminophen is 4000 mg from all sources in 24 hours. 1002 (Given - Provider: Tamar Ceron RN)2126 (Given - Provider: Nikhil Haney RN) 0335 (Given - Provider: Nikhil Haney RN) HYDROcodone-acetaminophe n (NORCO) 7.5-325 MG tablet 1 tablet 1 tablet, Oral, Every 8 hours PRN, Moderate pain (Scale 4 - 7), Starting on Wed02/17/23 at 1301, Until Wed02/18/23 at 1527, Maximum dose of acetaminophen is 4000 mg from all sources in 24 hours. 1319 (Given - Provider: Chantal Otero RN)2237 (Given - Provider: Nikhil Haney RN) 0809 (Given - Provider: Florencio Fernández RN) ondansetron (ZOFRAN) injection 4 mg 4 mg, Intravenous, Every 8 hours PRN, Nausea, Vomiting, Starting on Wed02/16/23 at 0431, Until Wed02/18/23 at 1527, IV push over 2-5 minutes. Linked Groups Order Group 1: enoxaparin (LOVENOX) 40 MG/0.4ML syringe 40 mgJump to med 40 mg, Subcutaneous, Nightly (enoxaparin), First dose on Wed02/16/23 at 2100, Until Discontinued, Administer by deep SubQ injection alternating between the left or right anterolateral and left or right posterolateral abdominal wall. And Moderate Risk for VTE (COMPLETED) Group 2: ipratropium-albuterol (DUONEB) 0.5-2.5 (3) MG/3ML nebulizer solution 3 mL (CANCELED) 3 mL, Nebulization, Every 6 hours, First dose on Wed02/16/23 at 0700, Until Discontinued And fluticasone (FLOVENT HFA) 110 MCG/ACT inhaler 1 puffJump to med 1 puff, Inhalation, 2 times daily, First dose on Wed02/16/23 at 0800, Until Discontinued, Following administration, rinse mouth with water after use (do not swallow) to reduce risk of oral candidiasis. Group 3: Pharmacy to dose warfarin (COUMADIN) (CANCELED) Routine, Once, On Wed02/17/23 at 0752, For 1 occurrence, Target INR? 2-3, Indication for therapy (eg. afib)? AFib And warfarin (COUMADIN) pharmacy to dose placeholderJump to med Oral, See admin instructions, Starting on Wed02/17/23 at 0751, Until Wed02/18/23 at 1527, Warfarin Placeholder Only: Do NOT document administrations on this placeholder. (Use medication on OCT to document administrations or contact pharmacy if medication order not entered.) documented in this encounter Additional Health Concerns Assessment Noted Time PHQ-9 Depression Total Score: 0 12/02/19 22 1:18 PM CDT documented as of this encounter Care Teams Electrician Research Relationship Specialty [place] [address] [place] [address] [place] [phone] PCP - General FAMILY PRACTICE 04/06/16 Amauri Pandey MD [place] [employer] Operator CARDIOVASCULAR DISEASE 04/06/16 12/28/23 Sharmila Davis APRN, YARD WORKER-C [address] [facility] [address] [place] [address] NURSE PRACTITIONER 01/04/17 04/03/24 Linda Block MD [address] [facility] [address] [place] [address] [place] [employer] Operator CLINICAL CARDIAC ELECTROPHYSIOLOGY 02/08/17 04/12/23 Zaki Ortiz MD [address] [facility] [address] [place] [phone] Consulting Physician PULMONARY DISEASE 07/12/19 Concetta Acevedo MD [address] [place] [id number] Surgeon NEUROLOGICAL SURGERY 12/16/22 Jeff Grace MD [address] [place] [address] Consulting Physician INTERNAL MEDICINE 02/11/23 documented as of this encounter
--- OUTSIDE RECORDS SUMMARY | 2024-09-03 19:09 | XMS_ITS | Encounter Summary ---
Author Organization [facility] Address [address] [place] [address]. [place] [address] [place] [address] Care Team Providers Care Ceramics Test Engineer Name Role Phone Piyush Pandey MD Unavailable Unavailabl e Megan Infante MD Primary Care Provider [phone] Sharmila Davis APRN, NP-C Unavailable [phone] Linda Block MD Unavailable [phone] Zaki Ortiz MD Unavailable [phone] Romeo-Concetta Pond MD Unavailable + [phone] Jeff Grace MD Unavailable Encounter Details Date Type Department Care Team (Late st Contact Info) Description 04/05/2023 Orders Only [facility] [address] [facility] [place] [address] Theresa Sheriff PAMartyC [facility] [place] [phone] Social History Tobacco Use Types Packs/Day Years [...] How often do you attend pentecostal or mandaeism serv ices? Patient declined 02/16/2023 Do you [...] on to questions 3-9 0 12/01/2021 [facility] Occupat ional Health [...] in a group home (including now)? Patient refused 02/16/2023 Sex [...] Assessment Author Status No 02/16/2023 4:01 AM SKYLART Iva Lepe RN Active * Are you [...] st Contact Info) Description 09/25/2024 2:00 PM QUALITY AUDITOR Appointment [facility] [address] [facility] [place] [address] Zayra Powell, [facility] [address] [place] [address] 10/16/2024 3:30 PM QUALITY AUDITOR Office Visit [facility] [address] [facility] [place] [address] Brit Gonzáles MD [address] [place] [address] documented as of this encounter Goals Goal Patient Goal Type Associated Problems Recent Progress Patient-Stated? Author Family - family caregiver with be involved in care transitions and discharge planning Lifestyle No Karen Quezada RN documented as of this encounter Results * (ABNORMAL) BASIC METABOLIC PANEL (04/05/2023 10:45 AM CDT) SODIUM S/P/B 134(L) 136 - 145 MMOL/L 04/05/2023 11:48 AM CDT [facility] POTASSIUM S/P/B 4.7 3.5 - 5.1 MMOL/L 04/05/2023 11:48 AM CDT [facility] CHLORIDE S/P/B 96(L) 98 - 107 MMOL/L 04/05/2023 11:48 AM CDT [facility] CO2 27.5 21.0 - 32.0 MMOL/L 04/05/2023 11:48 AM CDT [facility] GLUCOSE 132(H) 70 - 99 MG/DL 04/05/2023 11:48 AM [facility] Comment: FASTING GLUCOSE 100 TO 125 MG/DL IS CONSISTENT WITH IMPAIRED FASTING GLUCOSE. FASTING GLUCOSE >125 MG/DL IS CONSISTENT WITH DIABETES. RANDOM GLUCOSE >200 MG/DL WITH HYPERGLYCEMIC SYMPTOMS IS CONSISTENT WITH DIABETES. PER ADA GUIDELINES BUN 112(H) 6 - 24 MG/DL 04/05/2023 11:48 AM T [facility] CREATININE S/P/B 2.03(H) 0.70 - 1.30 MG/DL 04/05/2023 11:48 AM T [facility] CALCIUM S/P/B 9.5 8.4 - 10.5 MG/DL 04/05/2023 11:48 AM [facility] ANION GAP 10.5 5.0 - 15.0 MMOL/L 04/05/2023 11:48 AM [facility] OSMOLALITY (CALC) 315 MOSM/KG 023 11:48 AM T [facility] Comment:REFERENCE RANGE NOT ESTABLISHED GFR ESTIMATE 35(L) >89 ML/MIN/1. 73 M2 04/05/2023 11:48 AM [facility] GFR NOTES GFR REFERENCE S: 04/05/2023 11:48 AM [facility] Comment: THE ESTIMATED GFR IS [...] ml/min/1.73 m2 04/05/2023 10:4 5 AM CDT us Theresa Sheriff PA-C LABORATORY Final Resu lt [facility] [address] [place] [address], documented in this encounter Visit Diagnoses Diagnosis Chronic renal disease, stage III (CMS/HCC HHS/HCC)- Primary Chronic kidney disease, Stage III (moderate) documented in this encounter Additional Health Concerns Assessment Noted Time PHQ-9 Depression Total Score: 0 12/02/19 22 1:18 PM CDT documented as of this encounter Care Teams Ceramics Test Engineer Relationship Specialty Start Date End Date Megan Infante MD [address] [place] [phone] PCP - General FAMILY PRACTICE 04/06/16 Piyush Panedy MD [place] Helper CARDIOVASCULAR DISEASE 04/06/16 12/28/23 Sharmila Davis, VP PRODUCT MANAGEMENT, JUNIOR DATABASE ADMINISTRATOR-C [address] [phone] NURSE PRACTITIONER 01/04/17 04/03/24 Linda Block MD [address] [phone] [place] Helper CLINICAL CARDIAC ELECTROPHYSIOLOGY 02/08/17 04/12/23 Zaki Ortiz MD [address] [address] Consulting Physician PULMONARY DISEASE 07/12/19 Concetta Acevedo MD [address] [place] [address] Surgeon NEUROLOGICAL SURGERY 12/16/22 Jeff Grace MD [address] [place] [address] Consulting Physician INTERNAL MEDICINE 02/11/23 documented as of this encounter
--- OUTSIDE RECORDS SUMMARY | 2024-09-03 19:09 | XMS_ITS | Encounter Summary ---
Author Organization [facility] Address [facility] [place] [address] [place] [address] Care Team Providers Care Family Service Worker Name Role Phone Piyush Pandey MD Unavailable Unavailabl e Megan Infante MD Primary Care Provider [phone] Sharmila Davis APRN, NP-C Unavailable [phone] Linda Block MD Unavailable [phone] Zaki Ortiz MD Unavailable [phone] Romeo-Concetta Pond MD Unavailable + [phone] Jeff Grace MD Unavailable Encounter Details Date Type Department Care Team (Latest Contact Info) Description 03/08/2023 Travel Social History Tobacco Use Types Packs/Day [...] declined 02/16/2023 How often do you attend jain or quaker serv ices? Patient declined 02/16/2023 Do you belong to any clubs o r organizations such as jain groups, unions, fraternal or athletic groups, or [...] move on to questions 3-9 0 12/01/2021 [facility] Occupat ional [facility] - Occupational Stress Questionnaire Answer [...] slept in a long-term (including now)? Patient refused 02/16/2023 Sex and [...] AM CDT documented as of this encounter Functional Status [...] st Contact Info) Description 09/25/2024 2:00 PM EXECUTIVE CONSULTANT Appointment [facility] [address] [place] [address] Zayra Powell, PEOPLE MANAGER [address] [place] [address] 10/16/2024 3:30 PM EXECUTIVE CONSULTANT Office Visit [facility] [address] [address] Brit Gonzáles MD [address] [place], [place] [phone] documented as of this encounter Goals Goal [...] as of this encounter Care Teams Family Service Worker Relationship Specialty Start Date End Date Megan Infante MD [address] [place] [address] PCP - General FAMILY PRACTICE 04/06/16 Piyush Pandey MD [place] [employer] Hatcher[employer] Laborer CARDIOVASCULAR DISEASE 04/06/16 12/28/23 Sharmila Davis, TUBE INSPECTOR, DOBIE MAN-C [address] [place] [address] [address] [place] [phone] NURSE PRACTITIONER 01/04/17 04/03/24 Linda Block MD [address] [facility] [address] [place] [phone] [place] [employer]cher[employer] Laborer CLINICAL CARDIAC ELECTROPHYSIOLOGY 02/08/17 04/12/23 Zaki rOtiz MD [address] [facility] [address] [phone] Consulting Physician PULMONARY DISEASE 07/12/19 Concetta Acevedo MD [facility] [place][note 2] [address] [place] [address] Surgeon NEUROLOGICAL SURGERY 12/16/22 Jeff Grace MD [address] [place] [address] Consulting Physician INTERNAL MEDICINE 02/11/23 documented as of this encounter
--- OUTSIDE RECORDS SUMMARY | 2024-09-03 19:09 | XMS_ITS | Encounter Summary ---
Author Organization [facility] Address [facility] [facility] [place] [address] [place] [address] Care Team Providers Care Photocopying Equipment Repairer Name Role Phone Piyush Pandey MD Unavailable Unavailabl e Megan Infante MD Primary Care Provider [phone] Sharmila Davis APRN, NP-C Unavailable [phone] Linda Block MD Unavailable [phone] Zaki Ortiz MD Unavailable [phone] Romeo-Concetta Pond MD Unavailable + [phone] Jeff Grace MD Unavailable Brit Gonzáles MD Unavailable Encounter Details Date Type Department Care Team (Late st Contact Info) Description 02/22/2023 Hospital Follow-up Call [facility] [address] [place] [address] Cara Potter, RN Social History Tobacco Use Types Packs/Day Years [...] declined 02/16/2023 How often do you attend sabianism or church serv ices? Patient declined 02/16/2023 Do you belong to any clubs o r organizations such as sabianism groups, unions, fraternal or athletic groups, or [...] move on to questions 3-9 0 12/01/2021 [facility] of Occupat ional Health - Occupational Stress [...] slept in a prison (including now)? Patient refused 02/16/2023 Sex and [...] st Contact Info) Description 09/25/2024 2:00 PM TAKE AWAY WORKER Appointment [facility] [address] [place] [address] Zayra Powell, WEBSITE DESIGNER [address] [place] [address] 10/16/2024 3:30 PM TAKE AWAY WORKER Office Visit [facility] [address] [place] [phone] Brit Gonzáles MD [address] [place] [address] documented as of this encounter Goals Goal [...] documented as of this encounter Care Teams Photocopying Equipment Repairer Relationship Specialty Start Date End Date Megan Infante MD [address] [place] [phone] PCP - General FAMILY PRACTICE 04/06/16 Piyush Pandey MD [place] [employer] [facility]ist CARDIOVASCULAR DISEASE 04/06/16 12/28/23 Sharmila Davis APRN, ACCESSIBILITY LIFT TECHNICIAN-C [address] [phone] NURSE PRACTITIONER 01/04/17 04/03/24 Linda Block MD [address] [place] [phone] [place] [facility] CLINICAL CARDIAC ELECTROPHYSIOLOGY 02/08/17 04/12/23 Zaki Ortiz MD [address] [place] [phone] Consulting Physician PULMONARY DISEASE 07/12/19 Concetta Acevedo MD [address] [place] [address] Surgeon NEUROLOGICAL SURGERY 12/16/22 Jeff Grace MD [address] [place] [address] Consulting Physician INTERNAL MEDICINE 02/11/23 Brit Gonzáles MD [address] [place] [address] Consulting Physician CARDIOVASCULAR DISEASE 12/29/23 documented as of this encounter
--- OUTSIDE RECORDS SUMMARY | 2024-09-03 19:09 | XMS_ITS | Encounter Summary ---
Author Organization [facility] Address [facility] [place] [address] [place] [address] Care Team Providers Care Coin Machine Collector Name Role Phone Piyush Pandey MD Unavailable Unavailabl e Megan Infante MD Primary Care Provider [phone] Sharmila Davis APRN, NP-C Unavailable [phone] Zaki Ortiz MD Unavailable [phone] Concetta Acevedo MD Unavailable + [phone] Jeff Grace MD Unavailable Reason for Visit * Reason Comments Follow Up Venous insufficiency Encounter Details Date Type Department Care Team (Latest Contact Info) Description 04/13/2023 10:15 AM CDT Office Visit [facility] [place] [address] Jeff Grace MD [address] [place] [address] Follow Up (Venous insufficiency ) Social History Tobacco Use Types Packs/Day Years [...] Sign Reading Time Taken Comments Blood Pressure 104/50 04/13/2023 10:37 AM CDT Pulse 57 04/13/2023 10:37 AM CDT Temperature - - Respiratory Rate 14 04/13/2023 10:37 AM CDT Oxygen Saturation 98% 04/13/2023 10:37 AM CDT Inhaled Oxygen Concentration - - Weight 94 kg (207 lb 2 oz) 04/13/2023 10:37 AM C DT Height 167.6 cm (5' 6 ) 04/13/2023 10:37 AM CDT Body Mass Index 33.43 04/13/2023 10:37 AM CDT documented in this encounter Functional [...] Kenny RN Active documented in this encounter Progress Notes * Jeff Grace MD - 04/13/2023 10:15 AM CDT Reason for Visit: Follow Up (Venous insufficiency ) History of Present Illness: 67 year-old male whose cardiovascular striae consists of: 1. Chronic venous insufficiency with CEAP V disease. 2. Congestive heart failure with pulmonary hypertension. 3. Atrial fibrillation- chronic Coumadin. 4. HTN and CHF. 5. COPD. Patient is doing same and still continues to have some occasional weeping from his legs. Continues to sleep in her recliner rather than bed as he sleeps in the basement of his daughter and does not have a bed there. Walking is very limited overall. Has not been wearing any compression. ASSESSMENT AND PLAN: 1. Chronic venous insufficiency with CEAP V disease. Main issue is management of edema. ABIs in 2021 noted to be noncompressible with toe pressure more than 100 mmHg bilaterally. Would recommend multilayer compression, leg elevation and calf pump exercises but think he would be gentle diuresis. Discussed with patient at length and would recommend Tubigrip. Compliance seems to be a major issue here. 2. Congestive heart failure with pulmonary hypertension. Patient seems has diastolic and systolic failure. Follows with Sharmila Davis and Dr. Pandey as outpatient. 3. Atrial fibrillation. Patient on chronic Coumadin. 4. HTN and CHF. Defer to Dr. Pandey. 5. COPD. Medications: Current Outpatient Medications: TUBIGRIP MISC, DME,, Tubigrip Compression Knee High apply to bilateral lower extremities in the AM and remove at night Dx I83.893, Disp: 2 Package, Rfl: 6 albuterol sulfate HFA 108 (90 Base) MCG/ACT [...] mouth nightly at bedtime., Disp: , Rfl: camphor-menthol (SARNA) lotion, Apply topically 2 (two) times a day., Disp: , Rfl: carvedilol (COREG) 3.125 MG tablet, Take 1 tablet (3.125 mg total) by mouth 2 (two) times daily., Disp: , Rfl: dicloxacillin (DYNAPEN) 250 MG capsule, , Disp: , Rfl: docusate sodium 100 MG capsule, Take 1 capsule (100 mg total) by mouth as needed for Constipation.,Disp: , Rfl: furosemide (LASIX) 40 MG tablet, Take 1 tablet (40 mg total) by mouth daily., Disp: 30 tablet, Rfl:0 gabapentin (NEURONTIN) 400 MG capsule, Take 1 capsule (400 mg total) by mouth. 1 tablet in the morning and 2 tablets at night, Disp: , Rfl: glipiZIDE XL (GLUCOTROL XL) 5 MG 24 hr tablet, Take 1 tablet (5 mg total) by mouth daily with breakfast., Disp: 30 tablet, Rfl: 0 HYDROcodone-acetaminophen (NORCO) 7.5-325 MG tablet, Take 1 tablet by mouth every 8 (eight) hours as needed for Pain., Disp: , Rfl: hydrOXYzine (ATARAX) 50 MG tablet, Take 1 tablet (50 mg total) by mouth 3 (three) times daily. As needed, Disp: , Rfl: insulin detemir (LEVEMIR FLEXPEN) 100 UNIT/ML PEN, Inject 15 Units into the skin nightly at bedtime., Disp: 9 mL, Rfl: 0 JARDIANCE 25 MG tablet, Take 1 tablet (25 mg total) by mouth daily., Disp: , Rfl: lidocaine 4 % patch, Place 1 patch onto the skin daily. Remove & Discard patch within 12 hours or as directed by MD, Disp: 30 patch, Rfl: 0 losartan (COZAAR) 50 MG tablet, , Disp: , Rfl: metOLazone (ZAROXOLYN) 2.5 MG tablet, Take 1 tablet (2.5 mg total) by mouth twice a week., Disp: 30tablet, Rfl: 0 mupirocin (BACTROBAN) 2 % ointment, Apply 1 Application topically 2 (two) times daily., Disp: , Rfl: pantoprazole EC 40 MG tablet, Take 1 tablet (40 mg total) by mouth daily., Disp: , Rfl: rOPINIRole (REQUIP) 4 MG tablet, Take 1 tablet (4 mg total) by mouth nightly at bedtime., Disp: , Rfl: sertraline 50 MG tablet, Take 1 tablet (50 mg total) by mouth daily., Disp: , Rfl: spironolactone (ALDACTONE) 25 MG tablet, Take 1 tablet (25 mg total) by mouth daily., Disp: , Rfl: traZODone (DESYREL) 100 MG tablet, Take 2 tablets (200 mg total) by mouth nightly at bedtime., Disp: , Rfl: TRELEGY ELLIPTA 100-62.5-25 MCG/ACT AEROSOL POWDER, BREATH ACTIVATED, Inhale 1 puff into the lungs daily., Disp: , Rfl: triamcinolone (KENALOG) 0.1 % cream, , Disp: , Rfl: warfarin (COUMADIN) 1 MG tablet, Take 1 [...] heart failure, unspecified heart failure type (HHS/HCC) ([facility]) Anxiety Aortic valve stenosis Arthritis Asthma, mild persistent ([facility]/HCC) 04/06/2021 Atrial fibrillation (HHS/HCC) ([facility]/HCC) s/p PVI/[facility] 10/2015 Bilateral leg pain Carotid disease, bilateral ([facility]/HCC) CHF (congestive heart failure) ([facility]/HCC) ([facility]) Claudication ([facility]/HCC) COPD (chronic obstructive pulmonary disease) ([facility]/HCC) ([facility]) Coronary artery disease Diabetes mellitus, type II (HHS/HCC) ([facility]/HCC) Edema 04/19/2018 2+ pitting History of blood transfusion Hyperlipidemia Hypertension LV dysfunction Osteoarthritis PAD (peripheral artery disease) ([facility]) Pneumonia Restless leg syndrome S/P aortic valve replacement with bioprosthetic valve 2013 1999, 2013 SOB (shortness of breath) Stroke ([facility]/HCC) ([facility]) Varicose veins of bilateral lower extremities with other complications Weight gain with edema Past Surgical History: Procedure Laterality Date APPENDECTOMY CARDIAC VALVE REPLACEMENT 1999 CARDIAC VALVE REPLACEMENT 2013 CARDIOVERSION EXTERNAL 10/01/2015 CARDIOVERSION EXTERNAL 04/14/2012 COLONOSCOPY N/A 03/18/2021 COLONOSCOPY (Incomplete) performed by Kilo Navarro MD at [facility] OR COLONOSCOPY N/A 01/27/2022 COLONOSCOPY WITH COLD SNARE POLYPECTOMY performed by Kilo Navarro MD at [facility] OR HIP ARTHROPLASTY Left KNEE ARTHROPLASTY [...] Alive Brother Alive MGM MGF PGM PGF Review of Systems Constitutional: Negative for [...] and new or significant memory loss. Vitals: 04/13/23 1037 BP: 104/50 Patient Position: Sitting BP Location: Right arm Pulse: (!) 57 Weight: 94 kg (207 lb 2 oz) Height: 5' 6 (1.676 m) Body mass index is 33.43 kg/m??. Cardiac Exam Rate/Rhythm: Normal rate and [...] edema with venous stasis changes and xerosis. No large varicoseveins noted but spider reticular veins noted with early ankle flare. Diagnoses/Impression: 1. Varicose veins of bilateral lower extremities with other complications TUBIGRIP MISC, DME, Referring Provider: No ref. provider found PCP: MEGAN INFANTE MD documented in this encounter Plan of Treatment Upcoming Encounters Date Type Department Care Team (Late st Contact Info) Description 09/25/2024 2:00 PM AUDIO VISUAL ENGINEER Appointment [facility] [address] [facility] [place] [address] Zayra Powell, ENVIRONMENTAL PROJECT MANAGER [address] [facility] [place] [address] 10/16/2024 3:30 PM AUDIO VISUAL ENGINEER Office Visit [facility] [address] [facility] [place] [address] Brit Gonzáles MD [address] [place], [place] [id number] documented as of this encounter Goals Goal Patient Goal Type Associated Problems Recent Progress Patient-Stated? Author Family - family caregiver with be involved in care transitions and discharge planning Lifestyle No Karen Quezada RN documented as of this encounter Visit Diagnoses Diagnosis Varicose veins of bilateral lower extremities with other complications- Primary documented in this encounter Additional Health Concerns Assessment Noted Time PHQ-9 Depression Total Score: 0 12/02/19 22 1:18 PM CDT documented as of this encounter Care Teams Coin Machine Collector Relationship Specialty Start Date End Date Megan Infante MD [address] [facility] [place] [address] PCP - General FAMILY PRACTICE 04/06/16 Piyush Pandey MD [place] Graduate Intern CARDIOVASCULAR DISEASE 04/06/16 12/28/23 Sharmila Davis APRN, EYELET RIVETER-C [address] [place] [address] [address] [place] [address] NURSE PRACTITIONER 01/04/17 04/03/24 Zaki Ortiz MD [address] [facility] [address] [place] [address] Consulting Physician PULMONARY DISEASE 07/12/19 Concetta Acevedo MD [address] [place] [address] Surgeon NEUROLOGICAL SURGERY 12/16/22 Jeff Grace MD [address] [place] [address] Consulting Physician INTERNAL MEDICINE 02/11/23 documented as of this encounter
--- OUTSIDE RECORDS SUMMARY | 2024-09-03 19:09 | XMS_ITS | Encounter Summary ---
Author Organization [facility] Address [address] [place] [address]. [place] [address] [place] [address] Care Team Providers Care Internet Researcher Name Role Phone Piyush Pandey MD Unavailable Unavailabl e Megan Infante MD Primary Care Provider [phone] Sharmila Davis APRN LABORER YARD-C Unavailable [phone] Zaki Ortiz MD Unavailable [phone] Concetta Acevedo MD Unavailable + [phone] Jeff Grace MD Unavailable Encounter Details Date Type Department Care Team (Late st Contact Info) Description 07/20/2023 9:52 AM CONTINUOUS LOFT OPERATOR - 07/20/2023 11:10 AM [facility] Hospital Encounter [facility] [address] [place] [address] Maren Powell, [facility] [address] [place] [address] Discharge Disposition: Home or Self Care (Routine [...] declined 02/16/2023 How often do you attend worship or hoahaoism serv ices? Patient declined 02/16/2023 Do you belong to any clubs o r organizations such as worship groups, unions, fraternal or athletic groups, or [...] of this encounter Progress Notes * Teresa Oh RN - 07/20/2023 10:00 AM CSTEncounter addended by: Teresa Oh RN on: 07/20/2023 11:34 AM Actions taken: MAR administration accepted INUOUS LOFT OPERATOR * Eveline Manning - 07/20/2023 10:00 AM CSTEncounter addended by: Eveline Manning on: 07/26/2023 12:14 PM Actions taken: Charge Capture section accepted INUOUS LOFT OPERATOR documented in this encounter Plan of Treatment Upcoming Encounters Date Type Department Care Team (Late st Contact Info) Description 09/25/2024 2:00 PM CONTINUOUS LOFT OPERATOR Appointment [facility] [address] [place] [address] Maren Powell, CROP OR GRAIN FARMWORKER [address] [place] [address] 10/16/2024 3:30 PM CONTINUOUS LOFT OPERATOR Office [facility] [place] [phone] Brit Gonzáles MD [address] [place] [address] documented as of this encounter Goals Goal Patient Goal Type Associated Problems Recent Progress Patient-Stated? Author Family - family caregiver with be involved in care transitions and discharge planning Lifestyle No Karen Quezada RN documented as of this encounter Procedures Procedure Name Priority Date/Time Associated Diagnosis Comments PATHOLOGY Routine 07/20/2023 12:00 AM CONTINUOUS LOFT OPERATOR Skin lesion documented in this encounter Results * Pathology (07/20/2023 12:00 AM CONTINUOUS LOFT OPERATOR) PATHOLOGY [facility] ? Department of Laboratory Medicine ?[address] [facility] ?[place] [address] ? , extension [phone] ? Pathology Report ? Surgical Pathology Report Name: OBIE SIMS ?Specimen #: [id number] Age: 12 1955 (Age: 67) ? Location: Sex: M ?Procedure Date: 07/20/2023 Hospital #: [id number] ?Date Received: 07/21/2023 Date Reported: 07/27/2023 Provider: MAREN COHN-See Source: A: Skin, left lower leg center, biopsy B: Skin, left lower leg outer margin, biopsy Clinical History: Skin lesion left lower leg Gross Description: Received in two parts: A) Received in formalin, labeled with a patient label and as center is a 0.4 cm in diameter punch biopsy of white-bonilla skin excised to a depth of 0.8 cm. There are no discrete lesions identified on the skin surface. ??The specimen is inked black, bisected, and entirely submitted in cassette A1. B) Received in formalin, labeled with a patient label and as outer margin is a 0.3 cm in diameter punch biopsy of white-bonilla skin excised to a depth of 0.5 cm. There are no discrete lesions identified on the surface. ??The specimen is inked black, bisected, and entirely submitted in cassette B1. The reported immunohistochemistry test(s) was developed and its performance characteristics determined by [facility]. It has not been cleared or approved by the U.S. Food and Drug Administration. However, the use of Analyte Specific Reagents does not require FDA approval. Gross examination (when applicable), interpretation and sign-out were performed at [facility], [address] [place] [address], [place], [place], [address]. FINAL DIAGNOSIS: A) SKIN, LEFT LOWER LEG LESION (CENTER), PUNCH BIOPSY: ? - LEIOMYOMA. B) SKIN, LEFT LOWER LEG LESION (OUTER MARGIN), PUNCH BIOPSY: ? - BENIGN SKIN WITH MILD STASIS-RELATED CHANGES, OTHERWISE UNREMARKABLE. IC: OWK Diagnosis Comment: Immunohistochemical stains were utilized in the evaluation of specimen A . ??The neoplastic cells are immunoreactive with Desmin. ??They are negative for S100, SOX10, cytokeratin CORIN, CD34, and CD68. ??Smooth Muscle Actin is non-contributory due to loss of tissue on the examined immunostain slide. The immunophenotypic findings support the morphologic impression of leiomyoma. ?? Electronically Signed Out ? CONNER EDWARDS MD [facility] 07/20/2023 07/21/2023 11: 40 AM CONTINUOUS LOFT OPERATOR Comment:Skin, left lower leg center, biopsy&Skin, left lower leg outer margin, biopsy Maren Powell CROP OR GRAIN FARMWORKER PATHOLOGY/CYTOLOGY ORDERABLES Final Result [facility] [address] [place] [address], [id number] documented in this encounter Visit Diagnoses Diagnosis Skin lesion- Primary Unspecified disorder of skin and subcutaneous tissue Non-pressure chronic ulcer of right calf, limited to breakdown of skin (CMS/HCC HHS/HCC) Ulcer of calf documented in this encounter Administered Medications Inactive Administered Medications - up to 3 most recent administrations Medication Order MAR Action Action Date Dose Rate Site lidocaine 2 % URO-JET jelly Topical, Once, 1 dose, On Wed07/20/23 at 1145Indications:Non-pressure chronic ulcer of right calf, limited to breakdown of skin (CMS/HCC HHS/HCC) Given 07/20/2023 11:30 AM CONTINUOUS LOFT OPERATOR lidocaine-EPINEPHrine 1 %-1:[id number] injection 1 mL 1 mL, Other, Once, 1 dose, On Wed07/20/23 at 1145Indications:Skin lesion Given 07/20/2023 11:29 AM CONTINUOUS LOFT OPERATOR 1 mL documented in this encounter Additional Health Concerns Assessment Noted Time PHQ-9 Depression Total Score: 0 12/02/19 22 1:18 PM CDT documented as of this encounter Care Teams Internet Researcher Relationship Specialty [place] [address] [place] [address] [place] [address] PCP - General FAMILY PRACTICE 04/06/16 Piyush Pandey MD [place] Telemetry Registered Nurse CARDIOVASCULAR DISEASE 04/06/16 12/28/23 Sharmila Davis APRN, LABORER YARD-C [address] [phone] NURSE PRACTITIONER 01/04/17 04/03/24 Zaki Ortiz MD [address] [place] [address] Consulting Physician PULMONARY DISEASE 07/12/19 Concetta Acevedo MD [address] [place] [address] Surgeon NEUROLOGICAL SURGERY 12/16/22 Jeff Grace MD [address] [place], [place] [address] Consulting Physician INTERNAL MEDICINE 02/11/23 documented as of this encounter
--- OUTSIDE RECORDS SUMMARY | 2024-09-03 19:09 | XMS_ITS | Encounter Summary ---
Author Organization [facility] Address [facility] [place] [address] [place] [address] Care Team Providers Care Sagger Soak Name Role Phone Piyush Pandey MD Unavailable Unavailabl e Megan Infante MD Primary Care Provider [phone] Sharmila Davis APRN MACHINE CLOTHING REPLACER-C Unavailable [phone] Zaki Ortiz MD Unavailable [phone] Concetta Acevedo MD Unavailable + [phone] Jeff Grace MD Unavailable Encounter Details Date Type Department Care Team (Late st Contact Info) Description 05/31/2023 2:30 PM CDT - 05/31/2023 11:59 PM CDT Hospital Encounter [facility] [address] [place] [address] Zayra Powell, [facility] [address] [place] [id number] Discharge Disposition: Home or Self Care (Routine [...] How often do you attend yazidism or episcopal serv ices? Patient declined 02/16/2023 Do you [...] [facility] Occupat ional [...] place to sleep or slept in a usp (including now)? Patient refused 02/16/2023 Sex and [...] mouth daily with breakfast. 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 [address] [place] [address] Zayra Powell, [facility] [address] [place] [address] 10/16/2024 3:30 PM PROGRAM ATTENDANT Office Visit [facility] [address] [place] [address] Brit Gonzáles MD [address] [place] [address] documented as of this encounter Goals Goal [...] documented as of this encounter Care Teams Sagger Soak Relationship Specialty Start Date End Date Megan Infnate MD [address] [place] [phone] PCP - General FAMILY PRACTICE 04/06/16 Piyush Pandey MD [place] Assignment Desk Editor CARDIOVASCULAR DISEASE 04/06/16 12/28/23 Sharmila Davis, DANNY, MACHINE CLOTHING REPLACER-C [address] [place] [phone] NURSE PRACTITIONER 01/04/17 04/03/24 Zaki Ortiz MD [address] [place] [phone] Consulting Physician PULMONARY DISEASE 07/12/19 Concetta Acevedo MD [address] [place] [address] Surgeon NEUROLOGICAL SURGERY 12/16/22 Jeff Grace MD [address] [place] [address] Consulting Physician INTERNAL MEDICINE 02/11/23 documented as of this encounter
--- OUTSIDE RECORDS SUMMARY | 2024-09-03 19:10 | XMS_ITS | Encounter Summary ---
Author Organization [facility] Address Formerly [facility], [id number] [place] [address] [place] [address] Care Team Providers Care Doffer Name Role Phone Piyush Pandey MD Unavailable Unavailabl e Megan Infante MD Primary Care Provider [phone] Sharmila Davis APRN, ADVERTISING SALES AGENT-C Unavailable Linda Block MD Unavailable [phone] Jeff Grace MD Unavailable Zaki Ortiz MD Unavailable [phone] RomeoConcetta Pond MD Unavailable + [phone] Reason for Visit * Reason Onset Date Comments Other 01/26/2023 Encounter Details Date Type Department Care Team ([facility] st Contact Info) Description 01/26/2023 Telephone [facility] [address] [place] [address] Sharmila Davis APRN, ADVERTISING SALES AGENT-C [address] [facility] [address] [place] [address] Other Social History Tobacco Use Types Packs/Day Years Used Date Smoking Tobacco: Former Smokeless Tobacco: Former Chew Alcohol Use Standard Drinks/Week Comments Yes 0 (1 standard drink = 0.6 oz pur e alcohol) 6 beers per week Humiliation, Afraid, Rape, and Kick questionnair e Answer Date Recorded Within the last year, have y ou been afraid of your partner or ex-partner? No 12/28/2022 Within the last year, have y ou been humiliated or emotionally abused in other ways by your partner or ex-partner? No Within the last year, have y ou been kicked, hit, slapped, or otherwise physically hurt by your partner or ex-partner? No 12/28/2022 Within the last year, have y ou been raped or forced to have any kind of sexual activity by your partner or ex-partner? No 12/28/2022 Overall Financial Resource Strain (CARDIA) Answe r Date Recorded How hard is it for you to pa y for the very basics like food, housing, medical care, and heating? Not very hard 12/28/2022 PHQ-2 Answer Date Recorded PHQ-2 Score - If the patient scores above 3, please move on to questions 3-9 0 12/01/2021 Hunger Vital Sign Answer Date Recorded Within the past 12 months, y ou worried that your food would run out before you got the money to buy more. Never true 12/29/19 23 Within the past 12 months, t he food you bought just didn't last and you didn't have money to get more. Never true 12/28/2022 PRAPARE - Transportation Answer Date Re corded In the past 12 months, has l ack of transportation kept you from medical appointments or from getting medications? No 03/2023 In the past 12 months, has l ack of transportation kept you from meetings, work, or from getting things needed for daily living? No 12/28/2022 Housing Stability Vital Sign Answer Stevenson e Recorded In the last 12 months, was t here a time when you were not able to pay the mortgage or rent on time? No 12/28/2022 In the last 12 months, how many places have you lived? 1 12/28/2022 In the last 12 months, was t here a time when you did not have a steady place to sleep or slept in a [place] facility (including now)? No 12/28/2022 Sex and Gender Information Value Date Recorded Sex Assigned at Not on file Legal Sex Male 10:01 PM CDT Gender Identity Not on file Sexual Orientation Not on file Occupation Industry Job Start Date Job End Date Not on file Not on file Not on file Not on file COVID-19 Exposure Response Date Recorded In the last 10 days, have neela u been in contact with someone who was confirmed or suspected to have Coronavirus/COVID-19? No / Unsure 01/22/2023 9:10 AM CDT documented as of this encounter Functional Status * Are you deaf or do you have serious difficulty hearing Answer Date of Assessment Author Status No 12/28/2022 6:30 PM CDT Inga Moseley RN Active * Are you blind or do you have serious difficulty seeing, even when wearing glasses? Answer Date of Assessment Author Status No 12/28/2022 6:30 PM CDT Inga Moseley RN Active * Do you have serious difficulty walking or climbing stairs? Answer Date of Assessment Author Status Yes 12/28/2022 6:30 PM CDT Inga Moseley RN Active * Do you have difficulty dressing or bathing? Answer Date of Assessment Author Status No 12/28/2022 6:30 PM CDT Inga Moseley RN Active * Because of a physical, mental, or emotional condition, do you have difficulty doing errands alone such as visiting a doctor's office or shopping? Answer Date of Assessment Author Status No 12/28/2022 6:30 PM SKYLART Inga Moseley RN Active documented as of this encounter Mental Status * Because of a physical, mental, or emotional condition, do you have serious difficulty concentrating, remembering, or making decisions? Answer Entry Date Author Status No 12/28/2022 6:30 PM CDT Inga Moseley RN Active documented in this encounter Progress Notes * Reed Neville - 01/26/2023 11:18 AM CDT VM DATE/TIME:01/26/2023 at 9:20 am CALLER: june pena/ 's office PH #: [phone] PROVIDER/NEW PT: REASON FOR CALL: june called to get notes from pt last office visit. Pt is trying to get cardiac clearance for a neck surgery and 's office is not sure that pt is ready yet. REQUEST HANDLED AND HOW: called 's office back. Verified pts info and fax over note from previous visit with . documented in this encounter Plan of Treatment Upcoming Encounters Date Type Department Care Team (Late st Contact Info) Description 09/25/2024 2:[address] [facility] [address] [place] [address] Zayra Powell, SONOGRAM TECHNICIAN [address] [place] [address] 10/16/2024 3:30 PM JAR FILLER Office Visit [facility] [address] [place] [address] Brit Gonzáles MD [address] [place], [place] [phone] documented as of this encounter Visit Diagnoses Not on filedocumented in this encounter Additional Health Concerns Assessment Noted Time PHQ-9 Depression Total Score: 0 12/02/19 22 1:18 PM CDT documented as of this encounter Care Teams Doffer Relationship Specialty Start Date End Date Megan Infante MD [address] [facility] [address] [place] [address] PCP - General FAMILY PRACTICE 04/06/16 Piyush Pandey MD [facility] [employer] CARDIOVASCULAR DISEASE 04/06/16 12/28/23 Sharmila Davis APRN, ADVERTISING SALES AGENT-C [address] [facility] [address] [place] [address] NURSE PRACTITIONER 01/04/17 04/03/24 Linda Block MD [address] [facility] [address] [place] [address] [facility] [employer] CLINICAL CARDIAC ELECTROPHYSIOLOGY 02/08/17 04/12/23 Jeff Grace MD [address] [place] [phone] Consulting Physician INTERNAL MEDICINE 02/20/19 3 Zaki Ortiz MD [address] [place] [address] Consulting Physician PULMONARY DISEASE 07/12/19 Concetta Acevedo MD [address] [place] [id number] Surgeon NEUROLOGICAL SURGERY 12/16/22 documented as of this encounter
--- OUTSIDE RECORDS SUMMARY | 2024-09-03 19:10 | XMS_ITS | Encounter Summary ---
Author Organization [facility] Address [address] [place] [address]. [place] [address] [place] [address] Care Team Providers Care Reeling Machine Setup Operator Name Role Phone Piyush Pandey MD Unavailable Unavailabl e Megan Infante MD Primary Care Provider [phone] Sharmila Davis APRN, NP-C Unavailable [phone] Linda Block MD Unavailable [phone] Jeff Grace MD Unavailable Zaki Ortiz MD Unavailable [phone] Concetta Acevedo MD Unavailable + [phone] Reason for Visit * Reason Onset Date Comments Appointment Request 01/06/2023 2 wk dischar ge follow up Encounter Details Date Type Department Care Team (Late st Contact Info) Description 01/06/2023 Telephone [facility] [address] [place] [address] Piyush Pandey MD Appointment Request (2 wk discharge follow up) Social History Tobacco Use Types Packs/Day Years [...] slept in a senior care (including now)? No 12/28/2022 Sex and Gender [...] suspected to have Coronavirus/COVID-19? No / Unsure 12/28/2022 11:45 AM CDT documented as of this encounter [...] Assessment Author Status Yes 12/28/2022 6:30 PM SKYLART Inga Moseley RN Active * Do you [...] Date Author Status No 12/28/2022 6:30 PM SKYLART Inga Moseley RN Active documented in this encounter Progress Notes * Marcella Freitas RN - 01/07/2023 11:04 AM CDT Returned call to Oren Harris- sent to [employer] Message left with scheduled f/u appointment for 01/22/23 at 9:30 am with Sharmila Davis NP at [facility]. Requested a call back to confirm. * Bethanie Lay - 01/06/2023 4:16 PM CDT Oren called for a 2 week hospital discharge follow up appt with Dr. Pandey. Please call back. documented in this encounter Plan of Treatment Upcoming Encounters Date Type Department Care Team (Late st Contact Info) Description 09/25/2024 2:00 PM BRIQUETTE OPERATOR Appointment [facility] [address] [address] Zayra Powell, CRAWLER TRACTOR OPERATOR [address] [facility] [address] [place] [address] 10/16/2024 3:30 PM BRIQUETTE OPERATOR Office Visit [facility] [address] [address] Brit Gonzáles MD [address] [place], [place] [phone] documented as of this encounter Visit Diagnoses Not on filedocumented in this encounter Additional Health Concerns Assessment Noted Time PHQ-9 Depression Total Score: 0 12/02/19 22 1:18 PM CDT documented as of this encounter Care Teams Reeling Machine Setup Operator Relationship Specialty Start Date End Date Megan Infante MD [address] [facility] [address] [place] [address] PCP - General FAMILY PRACTICE 04/06/16 Piyush Pandey MD [employer] Mgr CARDIOVASCULAR DISEASE 04/06/16 12/28/23 Sharmila Davis APRN, TUCK POINTER-C [address] [place] [address] NURSE PRACTITIONER 01/04/17 04/03/24 Linda Block MD [address] [place] [address] [employer] CLINICAL CARDIAC ELECTROPHYSIOLOGY 02/08/17 04/12/23 Jeff Grace MD [address] [place] [address] Consulting Physician INTERNAL MEDICINE 02/20/19 3 Zaki Ortiz MD [address] [place] [address] Consulting Physician PULMONARY DISEASE 07/12/19 Concetta Acevedo MD [address] [place] [id number] Surgeon NEUROLOGICAL SURGERY 12/16/22 documented as of this encounter
--- OUTSIDE RECORDS SUMMARY | 2024-09-03 19:10 | XMS_ITS | Encounter Summary ---
Author Organization [facility] Address [facility] [place] [address] [place] [address] Care Team Providers Care Child Therapist Name Role Phone Amauri Pandey MD Unavailable Unavailabl e Megan Infante MD Primary Care Provider [phone] Sharmila Davis APRN REFINERY OPERATOR REFORMING [facility]IT-[facility] Unavailable [phone] Linda Block MD Unavailable [phone] Jeff Delgado MD Unavailable Zaki Ortiz MD Unavailable [phone] Romeo-Concetta Pond MD Unavailable + [phone] Reason for Referral * Imaging (Urgent) - Closed Specialty Diagnoses / Procedures Referred By Contac t Referred To Contact RADIOLOGY Procedures MRI BRAIN WO CON Alyssa Bucio PA-C [address] [address] Phone: tel: fax: Referral ID Status Reason Start Date Expiration Date Visits Re quested Visits Authorized [id number] Closed 02/06/2023 02/07/2024 1 1 * (Routine) - Canceled Specialty Diagnoses / Procedures Referred By Contac t Referred To Contact Procedures OT eval and treat Alyssa Bucio PA-C [address] [place] [phone] Phone: tel: fax: Referral ID Status Reason Start Date Expiration Date V isits Requested Visits Authorized [id number] Canceled 02/06/2023 02/07/2024 1 1 * (Routine) - Canceled Specialty Diagnoses / Procedures Referred By Contac t Referred To Contact Procedures PT eval and treat Alyssa Bucio PA-C [address] [address] Phone: tel: fax: Referral ID Status Reason Start Date Expiration Date V isits Requested Visits Authorized [id number] Canceled 02/06/2023 02/07/2024 1 1 * Imaging (Urgent) - Closed Specialty Diagnoses / Procedures Referred By Contac t Referred To Contact RADIOLOGY Procedures CT CHEST+ABD+PEL WO CON CT CHEST+ABD+PEL W CON Amauri Hammond MD Phone: tel: fax: Referral ID Status Reason Start Date Expiration Date Visits Re quested Visits Authorized [id number] Closed 02/06/2023 02/07/2024 1 1 * Imaging (Urgent) - Closed Specialty Diagnoses / Procedures Referred By Contac t Referred To Contact RADIOLOGY Procedures CT CERV SPINE WO CON Amauri Hammond MD Phone: tel: fax: Referral ID Status Reason Start Date Expiration Date Visits Re quested Visits Authorized [id number] Closed 02/06/2023 02/07/2024 1 1 * Imaging (Emergency) - Closed Specialty Diagnoses / Procedures Referred By Contac t Referred To Contact RADIOLOGY Procedures CT HEAD WO CON Amauri Hammond MD Phone: tel: fax: Referral ID Status Reason Start Date Expiration Date Visits Re quested Visits Authorized [id number] Closed 02/06/2023 02/07/2024 1 1 Reason for Visit * Reason Comments Fall * Auth/Cert (Routine) Specialty Diagnoses / Procedures Referred By Contac t Referred To Contact Diagnoses Rib fractures Rib fractures Procedures NONE Referral ID Status Reason Start Date Expiration Date Visits Re quested Visits Authorized [id number] 1 1 Encounter Details Date Type Department Care Team (Late st Contact Info) Description 02/06/2023 1:41 AM CDT - 02/09/2023 1:44 PM CDT Hospital Encounter [facility] [address] [place] [address] Amauri Hammond MD [address] [place] [id number] Bill Mills MD [address] [place] [phone] Angeles Carney DO [address] [place] [phone] Diamond Ace MD [address] [place], [place] [id number] Fall Discharge Disposition: Swing Bed Social History Tobacco Use Types Packs/Day Years Used Date Smoking Tobacco: Former Smokeless Tobacco: Former Chew Alcohol Use Standard Drinks/Week Comments Yes 0 (1 standard drink = 0.6 oz pur e alcohol) 6 beers per week Humiliation, Afraid, Rape, and Kick questionnair e Answer Date Recorded Within the last year, have y ou been afraid of your partner or ex-partner? No 02/06/2023 Within the last year, have y ou been humiliated or emotionally abused in other ways by your partner or ex-partner? No Within the last year, have y ou been kicked, hit, slapped, or otherwise physically hurt by your partner or ex-partner? No 02/06/2023 Within the last year, have y ou been raped or forced to have any kind of sexual activity by your partner or ex-partner? No 02/06/2023 Social Connection and Isolat ion Panel [NHANES] Answer Date Recorded In a typical week, how many times do you talk on the phone with family, friends, or neighbors? Twice a week 02/06/2023 How often do you get togethe r with friends or relatives? Twice a week 02/06/2023 How often do you attend chur ch or mormonism services? More than 4 times per year 02/06/2023 Do you belong to any clubs o r organizations such as samaritan groups, unions, fraternal or athletic groups, or school groups? No 02/06/2023 How often do you attend meet ings of the clubs or organizations you belong to? Never 02/06/2023 Are you , , di vorced, , never , or living with a partner? 02/06/2023 AUDIT-C Answer Date Recorded Q1: How often do you have a drink containing alc ohol? 2-4 times a month 02/06/2023 Q2: How many drinks containi ng alcohol do you have on a typical day when you are drinking? 1 or 2 02/06/2023 Q3: How often do you have si x or more drinks on one occasion? Never 02/06/2023 Overall Financial Resource Strain (CARDIA) Answe r Date Recorded How hard is it for you to pa y for the very basics like food, housing, medical care, and heating? Not hard at all 02/06/2023 PHQ-2 Answer Date Recorded PHQ-2 Score - If the patient scores above 3, please move on to questions 3-9 0 12/01/2021 [facility] Occupat ional Health - Occupational Stress Questionnaire Answer Date Recorded Do you feel stress - tense, restless, nervous, or anxious, or unable to sleep at night because your mind is troubled all the time - these days? Not at all 02/06/2023 Hunger Vital Sign Answer Date Recorded Within the past 12 months, y ou worried that your food would run out before you got the money to buy more. Sometimes true Within the past 12 months, t he food you bought just didn't last and you didn't have money to get more. Sometimes true PRAPARE - Transportation Answer Date Re corded In the past 12 months, has l ack of transportation kept you from medical appointments or from getting medications? No 01/21 In the past 12 months, has l ack of transportation kept you from meetings, work, or from getting things needed for daily living? No 02/06/2023 Housing Stability Vital Sign Answer Stevenson e Recorded In the last 12 months, was t here a time when you were not able to pay the mortgage or rent on time? No 02/06/2023 In the last 12 months, how many places have you lived? 1 02/06/2023 In the last 12 months, was t here a time when you did not have a steady place to sleep or slept in a long term (including now)? No 02/06/2023 Sex and Gender Information Value Date Recorded [...] Sign Reading Time Taken Comments Blood Pressure 117/61 02/09/2023 11:00 AM CDT Pulse 75 02/09/2023 11:00 AM CDT Temperature 36.6 ??C (97.9 ??F) 02/09/2023 11:00 AM C DT Respiratory Rate 20 02/09/2023 11:00 AM CDT Oxygen Saturation 99% 02/09/2023 11:00 AM CDT Inhaled Oxygen Concentration - - Weight 98.9 kg (218 lb) 02/06/2023 1:47 AM CDT Height 167.6 cm (5' 6 ) 02/06/2023 1:47 AM CDT Body Mass Index 35.19 02/06/2023 1:47 AM CDT documented in this encounter Functional Status * Question Answer Date of Assessment Author Status Do you have difficulty dressing or bathing? Yes 02/06/2023 11:00 AM Veronique Scruggs RN Active Because of a physical, mental, or emotional condition, do you have difficulty doing errands alone such as visiting a doctor's office or shopping? No 02/06/2023 11:00 AM Veronique Scruggs RN Ac tive * Question Answer Date of Assessment Author Status Do you have serious difficulty walking or climbing stairs? Yes 02/06/2023 11:00 AM Veronique Scruggs RN A ctive * Are you deaf or do you have serious difficulty hearing Answer Date of Assessment Author Status No 02/06/2023 11:00 AM Veronique Scruggs RN Active * Are you blind or do you have serious difficulty seeing, even when wearing glasses? Answer Date of Assessment Author Status No 02/06/2023 11:00 AM Veronique Scruggs RN Active * Do you have serious difficulty walking or climbing stairs? Answer Date of Assessment Author Status Yes 02/06/2023 11:00 AM Veronique Scruggs RN Active * Do you have difficulty dressing or bathing? Answer Date of Assessment Author Status Yes 02/06/2023 11:00 AM Veronique Scruggs RN Active * Because of a physical, mental, or emotional condition, do you have difficulty doing errands alone such as visiting a doctor's office or shopping? Answer Date of Assessment Author Status No 02/06/2023 11:00 AM Veronique Scruggs RN Active documented as of this encounter Mental Status * Question Answer Entry Date Author Status Because of a physical, mental, or emotional condition, do you have serious difficulty concentrating, remembering, or making decisions? No 02/06/2023 11:00 AM Veronique Scruggs RN Active * Because of a physical, mental, or emotional condition, do you have serious difficulty concentrating, remembering, or making decisions? Answer Entry Date Author Status No 02/06/2023 11:00 AM CDT Veronique Oropeza RN Active documented in this encounter Discharge Summaries * KESHA Sanford - 02/09/2023 12:17 PM CDT Images from the original note were not included. TRAUMA SURGERY DISCHARGE SUMMARY ACUTE CARE SURGERY SERVICE KESHA SANFORD, 02/09/2023, 12:17 PM [facility] LEVEL 1 TRAUMA CENTER ACUTE CARE SURGERY SERVICE: EMERGENCY SURGERY, TRAUMA, SURGICAL CRITICAL CARE [address] [place] [id number] TO CONTACT PROVIDERS: Critical Care Store Shopper/Trauma Surgeon MD: [id number] Emergency Surgery MD: [id number] Advanced Practice Provider - Trauma: [id number] Advanced Practice Provider - Emergency Surgery [id number] Name: Obie Sims Date of : 1955 Room/Bed: [facility] Date: 02/09/2023 Time: 12:17 PM ADMISSION DATE & TIME: 02/06/2023 1:41 AM Medically stable for discharge, 02/09/2023, 12:17 PM DISCHARGE DATE & TIME: 02/09/2023, 12:17 PM DISCHARGE DISPOSITION: Swing bed unit ADMITTING PHYSICIAN: Diamond Ace MD PRIMARY CARE PHYSICIAN: MEGAN INFANTE MD DISCHARGE PROVIDER: KESHA SANFORD ADMISSION DIAGNOSIS: Rib fractures [S22.49XA] Fall [W19.XXXA] Scalp laceration [S01.01XA] DISCHARGE DIAGNOSES: Patient Active Problem List Diagnosis Date Noted ??? Rib fractures 02/06/2023 ??? CHF (congestive heart failure) ([facility]) ??? NSTEMI (non-ST elevated myocardial infarction) ([facility]) 02/01/2022 ??? Elevated troponin 02/01/2022 ??? Elevated brain natriuretic peptide (BNP) level 02/01/2022 ??? Fall 02/01/2022 ??? Other closed fracture of distal end of right fibula with routine healing, subsequent encounter 01/29/2022 ??? Leg edema 12/09/2021 ??? Mild persistent asthma without complication 04/06/2021 ??? Asymptomatic carotid artery stenosis, bilateral 11/26/2020 ??? Obstructive sleep apnea (adult) (pediatric) 11/03/2020 ??? Pulmonary hypertension (CMS/HCC) 11/03/2020 ??? TIA (transient ischemic attack) 09/03/2020 ??? Pain in both lower extremities 03/07/2019 ??? Abnormal ankle brachial index (STELLA) ??? Claudication (CMS/HCC) ??? Varicose veins of bilateral lower extremities with other complications ??? Chronic atrial fibrillation (CMS/HCC) 08/08/2017 ??? Chronic anticoagulation 02/15/2017 ??? LV dysfunction ??? Essential hypertension ??? Mixed hyperlipidemia ??? Diabetes mellitus, type II (CMS/HCC) ??? Coronary artery disease involving [place] coronary artery of [place] heart without angina pectoris ??? COPD (chronic obstructive pulmonary disease) (CMS/HCC) ??? Carotid disease, bilateral (CMS/HCC) ??? Arthritis ??? Aortic stenosis ??? Abnormal finding on lung imaging 02/14/2014 ??? Abnormal finding on pulmonary function testing 02/14/2014 Description: non-specific ventilatotry defect. No clear restriction/obstruction.; ; Reduced diffusion capacity. ??? Shortness of breath 02/14/2014 ??? S/P ablation of atrial fibrillation 08/23/20131999, 2013 ??? S/P aortic valve replacement with bioprosthetic valve 08/23/20131999, 2013 DISCHARGE CONDITION: Good CODE STATUS: Full Code HOSPITAL COURSE: Obie Sims is a 67-year-old male who presented on 02/06/2023 1:41 AM per EMS after a ground levelfall. A CT scan of the head, neck, c/a/p was obtained and showed R 5-7th rib fractures. Ct of the head was remarkable for hypodensity in the left temporal lobe, unable to rule out acute on chronic infarct. The [facility] trauma team was consulted and the patient was admitted for pain control and pulmonary hygiene. An MRI of the brain was obtained and confirmed CT findings to be consistentwith chronic infarct. On HD#1, the patient was evaluated by PT/OT with recommendations for swing bed placement. He was started on a diet and tolerated. His Hgb was 6.8 and he was transfused 1U PRBC and Hgb remained stable thereafter. Tertiary trauma survey without new or progressed injury. He was having high blood glucose levels, the [facility] hospitalist was consulted for DM management. Dr. Delgado with vascular medicine was consulted for lower extremity edema, wound team on board, and was treated with short stretch bandages with Tubigrib. Case management on board and referrals were sent to [facility] unit per family request. On 02/09, the patients VS were stable, he was voiding and tolerating diet without issue. He was cleared for discharge per the Hospitalist service. He will be discharged to [facility] in stable condition. CONSULTS OBTAINED: Vascular Surgery: Lesly Hospitalist: Ivan HASWELL MEDICATIONS: Prior to Admission medications Medication Sig [...] times daily. 10/09/22 Yes Default History Genericprovider furosemide (LASIX) 40 MG tablet Take 1 tablet (40 mg total) by mouth 2 (two) times daily. 02/04/23 Yes Default History Genericprovider gabapentin (NEURONTIN) 400 MG capsule Take 1 capsule (400 mg total) by mouth. 1 tablet in the morning and 2 tablets at night 12/14/22 Yes Default History Genericprovider glipiZIDE XL (GLUCOTROL XL) 5 MG 24 hr tablet Take 1 tablet (5 mg total) by mouth daily with breakfast. 02/09/23 Yes Jamie Hilliard MD hydrOXYzine (ATARAX) 50 MG tablet Take 1 tablet (50 mg total) by mouth 3 (three) times daily. As needed 10/09/22 Yes Default History Genericprovider insulin detemir (LEVEMIR FLEXPEN) 100 UNIT/ML PEN Inject 15 Units into the skin nightly at bedtime.02/09/23 Yes Jamie Hilliard MD JARDIANCE 25 MG tablet Take 1 tablet (25 mg total) by mouth daily. 10/31/22 Yes Default History Genericprovider losartan (COZAAR) 25 MG tablet Take 1 tablet (25 mg total) by mouth daily. 01/13/23 Yes Default History Genericprovider metFORMIN (GLUCOPHAGE) 500 MG tablet Take 1 tablet (500 mg total) by mouth 2 (two) times daily withmeals. Yes Default History Genericprovider pantoprazole EC 40 MG tablet Take 1 tablet (40 mg total) by mouth daily. Yes [facility] rOPINIRole (REQUIP) 4 MG tablet Take 1 tablet (4 mg total) by mouth nightly at bedtime. 10/17/22 YesDefault History Genericprovider sertraline 50 MG tablet Take 1 tablet (50 mg total) by mouth daily. 10/03/21 Yes [facility] spironolactone (ALDACTONE) 25 MG tablet Take 1 tablet (25 mg total) by mouth daily. 09/05/22 Yes Default History Genericprovider traZODone (DESYREL) 100 MG tablet Take 2 tablets (200 mg total) by mouth nightly at bedtime. 03/24/22Yes [facility] warfarin (COUMADIN) 1 MG tablet Take 0.5 tablets (0.5 mg total) by mouth daily. Take with 5mg tab to make it 5.5mg daily 02/09/23 Yes Jamie Hilliard MD warfarin (COUMADIN) 5 MG tablet daily. As directed 05/14/22 Yes Default History Genericprovider amLODIPine (NORVASC) 2.5 MG tablet Take 1 tablet (2.5 mg total) by mouth daily. Default History Genericprovider camphor-menthol (SARNA) lotion Apply topically 2 (two) times a day. Default History Genericprovider docusate sodium 100 MG capsule Take 1 capsule (100 mg total) by mouth as needed for Constipation. [facility] HYDROcodone-acetaminophen (NORCO) 7.5-325 MG tablet Take 1 tablet by mouth every 8 (eight) hours asneeded for Pain. Default History Genericprovider methocarbamol (ROBAXIN) 500 MG tablet Take 1 tablet (500 mg total) by mouth 3 (three) times daily. 11/20/22 Default History Genericprovider metOLazone (ZAROXOLYN) 2.5 MG tablet Take 1 tablet (2.5 mg total) by mouth daily. Default History Genericprovider mupirocin (BACTROBAN) 2 % ointment Apply 1 Application topically 2 (two) times daily. 12/14/22 Default History Genericprovider TRELEGY ELLIPTA 100-62.5-25 MCG/ACT AEROSOL POWDER, BREATH ACTIVATED Inhale 1 puff into the lungs daily. 12/23/22 Default History Genericprovider RECENT LABORATORY RESULTS: Recent Labs Lab 02/06/23 0156 02/06/23 0552 02/06/23 20402/06/23 2351 02/07/23 0538 02/07/23 1433 02/07/237 02/08/23 0152 02/08/23 0813 02/09/23 0258 WBC 10.96* -- -- -- 7.55 -- -- -- 9.65 -- HGB 7.7* < > -- < > 6.8* 8.6* 8.7* -- 8.6* -- HCT 26.5* < > -- < > 24.2* 29.3* 29.3* -- 28.9* -- PLT 166 -- -- -- 158 -- -- -- 183 -- INR 3.5* -- -- -- 2.4* -- -- 2.4* -- 2.3* PTT 39.3* -- -- -- -- -- -- -- -- -- NA 132* -- -- -- 138 -- -- -- 133* 131* K 4.3 -- -- -- 4.2 -- -- -- 3.8 3.7 CL 99 -- -- -- 106 -- -- -- 98 92* CO2 26.2 -- -- -- 27.1 -- -- -- 31.8 31.1 AGAP 6.8 -- -- -- 4.9* -- -- -- 3.2* 7.9 BUN 72* -- -- -- 56* -- -- -- 55* 54* CR 2.81* -- -- -- 2.08* -- -- -- 2.53* 2.27* GLU 173* -- -- -- 84 -- -- -- 161* 228* CA 8.8 -- -- -- 9.1 -- -- -- 9.3 9.6 TP 7.8 -- 7.5 -- -- -- -- -- -- -- ALB 3.1* -- 3.0* -- -- -- -- -- -- -- TBIL 1.2* -- 1.2* -- -- -- -- -- -- -- ALKP 144* -- 130* -- -- -- -- -- -- -- AST 25 -- 23 -- -- -- -- -- -- -- ALT 19 -- 19 -- -- -- -- -- -- -- MAGNESIUM -- -- -- -- 2.4 -- -- -- 2.1 -- PHOS -- -- -- -- 3.8 -- -- -- 3.8 -- < > = values in this interval not displayed. No results found for: PH, PCO2, PO2, [id number], BICARBWB, BASEDEFICIT, BASEEXCESS CULTURES & SENSITIVITIES: Results for orders placed or performed during the hospital encounter of 02/06/23 (from the past 336hour(s)) CULTURE URINE Collection Time: 02/06/23 6:28 AM Specimen: URINE, CLEAN CATCH Result Value Ref Range SPEC DESCRIPTION URINE CLEAN CATCH SPECIAL REQUESTS NO SPECIAL REQUEST CULTURE RESULT FEW CONTAMINANTS No results found for this visit on 02/06/23 (from the past 336 hour(s)). PATHOLOGY: * Cannot find OR log * DISCHARGE EXAMINATION: Temp: [97.9 ??F (36.6 ??C)-98.2 ??F (36.8 ??C)] 97.9 ??F (36.6 ??C) Pulse: [75-81] 75 Resp: [18-20] 20 BP: (117-125)/(59-71) 117/61 General appearance:??alert and oriented, oriented to person, place, and time, and not in distress Neurological:??Grossly normal neurological examination, appropriate, and conversant, Alert and oriented, Following commands Face:??Structural elements stable, right facial abrasions Eyes:??Tracking without difficulty, extra-ocular muscles intact Mouth:??Mucous membranes moist, no signficant deformity or malocclusion Neck:??Trachea midline, Symmetric Chest:??No dyspnea or respiratory distress noted, sufficient air movement, broadly clear Heart:??S1 and S2 normal, normal rate, bilateral 2+ pitting edema Abdomen:??soft, nontender,??nondistended Musculoskeletal:??Motor and sensory grossly normal bilaterally Skin:??warm and dry, Psychiatric:??Mood and affect appropriate, alert, and oriented DISCHARGE MEDICATIONS: Medication List CHANGE how you take these medications Morning Afternoon Evening Bedtime As Needed glipiZIDE XL 5 MG 24 hr tablet Commonly known as: GLUCOTROL XL Take 1 tablet (5 mg total) by mouth daily with breakfast. Signed by: Dr. Jamie Hilliard MD What changed: ?? how much to take ?? how to take this ?? when to take this ?? additional instructions Levemir FlexPen 100 UNIT/ML PEN Inject 15 Units into the skin nightly at bedtime. Signed by: Dr. Jamie Hilliard MD Generic drug: insulin detemir What changed: ?? how much to take ?? when to take this ?? reasons to take this * warfarin 5 MG tablet Commonly known as: COUMADIN daily. As directed Last time this was given: Ask your nurse or doctor What changed: Another medication with the same name was changed. Make sure you understand how and when to take each. * warfarin 1 MG tablet Commonly known as: COUMADIN Take 0.5 tablets (0.5 mg total) by mouth daily. Take with 5mg tab to make it 5.5mg daily Last time this was given: Ask your nurse or doctor Signed by: Dr. Jamie Hilliard MD What changed: ?? how much to take ?? how to take this ?? additional instructions * This list has 2 medication(s) that are the same as other medications prescribed for you. Read thedirections carefully, and ask your doctor or other care provider to review them with you. CONTINUE taking these medications Morning Afternoon Evening Bedtime As Needed albuterol sulfate HFA 108 (90 Base) MCG/ACT inhaler Inhale 2 puffs into the lungs every 4 (four) hours as needed. allopurinol 300 MG tablet Commonly known as: ZYLOPRIM Take 1 tablet (300 mg total) by mouth daily. Last time this was given: 300 mg on February 09, 2023 8:01 AM aspirin 81 MG chewable tablet Chew 1 tablet (81 mg total) by mouth daily. Last time this was given: 81 mg on February 09, 2023 8:01 AM atorvastatin 80 MG tablet Commonly known as: LIPITOR Take 1 tablet (80 mg total) by mouth nightly at bedtime. Last time this was given: 80 mg on February 08, 2023 9:26 PM carvedilol 3.125 MG tablet Commonly known as: COREG Take 1 tablet (3.125 mg total) by mouth 2 (two) times daily. Last time this was given: 3.125 mg on February 09, 2023 8:01 AM docusate sodium 100 MG capsule Commonly known as: COLACE Take 1 capsule (100 mg total) by mouth as needed for Constipation. Last time this was given: 100 mg on February 07, 2023 5:14 PM furosemide 40 MG tablet Commonly known as: LASIX Take 1 tablet (40 mg total) by mouth 2 (two) times daily. Last time this was given: 40 mg on February 09, 2023 8:01 AM gabapentin 400 MG capsule Commonly known as: NEURONTIN Take 1 capsule (400 mg total) by mouth. 1 tablet in the morning and 2 tablets at night Last time this was given: 400 mg on February 09, 2023 8:01 AM hydrOXYzine 50 MG tablet Commonly known as: ATARAX Take 1 tablet (50 mg total) by mouth 3 (three) times daily. As needed Jardiance 25 MG tablet Take 1 tablet (25 mg total) by mouth daily. Generic drug: empagliflozin metOLazone 2.5 MG tablet Commonly known as: ZAROXOLYN Take 1 tablet (2.5 mg total) by mouth daily. Last time this was given: 2.5 mg on February 09, 2023 8:01 AM mupirocin 2 % ointment Commonly known as: BACTROBAN Apply 1 Application topically 2 (two) times daily. pantoprazole EC 40 MG tablet Commonly known as: PROTONIX Take 1 tablet (40 mg total) by mouth daily. Last time this was given: 40 mg on February 09, 2023 8:01 AM rOPINIRole 4 MG tablet Commonly known as: REQUIP Take 1 tablet (4 mg total) by mouth nightly at bedtime. Last time this was given: 4 mg on February 08, 2023 9:27 PM Sarna lotion Apply topically 2 (two) times a day. Generic drug: camphor-menthol sertraline 50 MG tablet Commonly known as: ZOLOFT Take 1 tablet (50 mg total) by mouth daily. Last time this was given: 50 mg on February 09, 2023 8:01 AM spironolactone 25 MG tablet Commonly known as: ALDACTONE Take 1 tablet (25 mg total) by mouth daily. Last time this was given: 25 mg on February 09, 2023 8:01 AM traZODone 100 MG tablet Commonly known as: DESYREL Take 2 tablets (200 mg total) by mouth nightly at bedtime. Last time this was given: 200 mg on February 08, 2023 9:26 PM Trelegy Ellipta 100-62.5-25 MCG/ACT Aepb Inhale 1 puff into the lungs daily. Generic drug: Ojtxxfibfhn-Nekhwolji-Tvsouv STOP taking these medications amLODIPine 2.5 MG tablet Commonly known as: NORVASC losartan 25 MG tablet Commonly known as: COZAAR metFORMIN 500 MG tablet Commonly known as: GLUCOPHAGE ASK your doctor about these medications Morning Afternoon Evening Bedtime As Needed HYDROcodone-acetaminophen 7.5-325 MG tablet Commonly known as: NORCO Take 1 tablet by mouth every 8 (eight) hours as needed for Pain. Last time this was given: Ask your nurse or doctor Ask about: Which instructions should I use? methocarbamol 500 MG tablet Commonly known as: ROBAXIN Take 1 tablet (500 mg total) by mouth 3 (three) times daily. Last time this was given: 500 mg on February 09, 2023 8:01 AM PATIENT INSTRUCTIONS: PT/OT to evaluate and treat Wound team to evaluate and treat Continue carb controlled renal diet -At discharge, continue warfarin 5.5 mg daily, recheck INR in 2 to 3 days. -Would recommend stopping anticoagulant going forwards if patient remains a fall risk. Sodium 131, advised fluid restriction 1.5 L in 24 hours. ??Continue at discharge, repeat BMP in 2 to 3 days to follow-up on sodium and kidney function -Discharge recommendations: Glipizide 5 mg daily, Levemir 15 units nightly,??continue Jardiance ?? TRAUMA DISCHARGE INSTRUCTIONS ?? Rib Fractures (Broken Ribs) ?? Your ribs are curved bones in your chest. They help protect your lungs and expand and contract whenyou breathe. Children's ribs bend easily and can often withstand a blow or fall. But adult ribs aremore likely to break (fracture) under stress. Even coughing or a hard sneeze can fracture a rib. ?? When to Go to the Emergency Room (ER) Although they can be painful, most rib fractures aren't serious. But they often make it hard to cough or breathe deeply. Get medical care right away if you have: ??? Trouble breathing. ??? Nausea, vomiting, or stomach pain with a sore or bruised rib. ??? Pain that worsens over time. ??? An injury to the chest or abdomen. ?? What to Expect in the ER ??? A doctor will ask about your injury and examine you carefully. ??? An x-ray of your chest will likely be taken to show any damage to ribs and certain soft tissues. ??? You may be given medication to ease your discomfort. ??? Rarely, rib fractures can cause a lung to collapse or lead to bleeding in the chest. In these cases, a tube will be inserted into the chest to inflate the lung or drain the blood. ?? Follow-up You are likely to heal in 6 to 8 weeks. Most rib fractures heal on their own with no lasting effects. Call your doctor right away if you notice any of these symptoms: ??? Increased chest pain ??? Shortness of breath ??? Fever ??? Coughing up blood ?? Medicine discharge instructions Continue taking Coumadin 5.5 mg nightly. Repeat your INR in 2 to 3 days. Contact information for follow-up providers MEGAN INFANTE MD Follow up. Specialty: FAMILY PRACTICE Why: For hospital follow up and incidental findings on imaging: ?? Bilateral pulmonary nodules ?? Right adrenal mass ?? Cholelithiasis Contact information: [place] [address] Contact information for after-discharge care Destination [facility] . Service: [facility] Contact information: [address] [facility] [address] The time spent discharging the patient in the location where the care was being performed was approximately 33 minutes and does not include any separate procedures and interventions. Cosigned by Angeles Carney DO at 02/17/2023 4:52 PM CDT documented in this encounter Discharge Instructions * Discharge Instructions* KESHA Sanford - 02/06/2023 8:32 PM CDT PT/OT to evaluate and treat Wound team to evaluate and treat Continue carb controlled renal diet -At discharge, continue warfarin 5.5 mg daily, recheck INR in 2 to 3 days. -Would recommend stopping anticoagulant going forwards if patient remains a fall risk. Sodium 131, advised fluid restriction 1.5 L in 24 hours. Continue at discharge, repeat BMP in 2 to 3 days to follow-up on sodium and kidney function -Discharge recommendations: Glipizide 5 mg daily, Levemir 15 units nightly, continue Jardiance TRAUMA DISCHARGE INSTRUCTIONS Rib Fractures (Broken Ribs) Your ribs are curved bones in your chest. They help protect your lungs and expand and contract whenyou breathe. Children's ribs bend easily and can often withstand a blow or fall. But adult ribs aremore likely to break (fracture) under stress. Even coughing or a hard sneeze can fracture a rib. When to Go to the Emergency Room (ER) Although they can be painful, most rib fractures aren't serious. But they often make it hard to cough or breathe deeply. Get medical care right away if you have: Trouble breathing. Nausea, vomiting, or stomach pain with a sore or bruised rib. Pain that worsens over time. An injury to the chest or abdomen. What to Expect in the ER A doctor will ask about your injury and examine you carefully. An x-ray of your chest will likely be taken to show any damage to ribs and certain soft tissues. You may be given medication to ease your discomfort. Rarely, rib fractures can cause a lung to collapse or lead to bleeding in the chest. In these cases, a tube will be inserted into the chest to inflate the lung or drain the blood. Follow-up You are likely to heal in 6 to 8 weeks. Most rib fractures heal on their own with no lasting effects. Call your doctor right away if you notice any of these symptoms: Increased chest pain Shortness of breath Fever Coughing up blood Medicine discharge instructions Continue taking Coumadin 5.5 mg nightly. Repeat your INR in 2 to 3 days. * Attachments The following attachments cannot be sent through Care Everywhere. * Getting Up From a Fall (Indian) documented in this encounter Medications at Time [...] total) by mouth 2 (two) times daily. 02/04/2023 3 gabapentin (NEURONTIN) 100 MG capsule Take [...] as directed by 30 patch 02/10/2023 3 methocarbamol (ROBAXIN) 500 MG tablet Take 1 tablet (500 mg total) by mouth 3 (three) times daily. 11/20/2022 3 metOLazone (ZAROXOLYN) 2.5 MG tablet Take 1 tablet (2.5 mg total) by mouth daily. 3 mupirocin (BACTROBAN) 2 % ointment Apply [...] 12/23/2022 warfarin (COUMADIN) 1 MG tablet Take 0.5 tablets (0.5 mg total) by mouth daily. Take with 5mg tab to make it 5.5mg daily 30 tablet 02/09/2023 3 warfarin (COUMADIN) 5 MG tablet 1 tablet (5 mg total) daily. As directed 05/14/2022 3 documented as of this encounter Progress Notes * Yvonne Harris RN - 02/09/2023 1:44 PM CDT Nurse to nurse report [phone] Shared with bedside nurse so to call report * Opal Christianson RN - 02/09/2023 1:27 PM CDT Problem: Pain Goal: Patient's pain/discomfort is manageable Description: Assess and monitor patient's pain using appropriate pain scale. Collaborate with interdisciplinary team and initiate plan and interventions as ordered. Re-assess patient's pain level 30 - 60 minutes after pain management intervention. Outcome: Completed Problem: Safety Goal: Patient will be injury free during hospitalization Description: Assess and monitor vitals signs, neurological status including level of consciousness and orientation. Assess patient's risk for falls and implement fall prevention plan of care and interventions per hospital policy. Ensure arm band on, uncluttered walking paths in room, adequate room lighting, call light and overbed table within reach, bed in low position, wheels locked, side rails up per policy, and non-skid footwear provided. Outcome: Completed Problem: Daily Care Goal: Daily care needs are met Description: Assess and monitor ability to perform self care and identify potential discharge needs. Outcome: Completed Problem: Psychosocial Needs Goal: Demonstrates ability to cope with hospitalization/illness Description: Assess and monitor patients ability to cope with his/her illness. Outcome: Completed Goal: Collaborate with patient/family/caregiver to identify patient specific goals for this hospitalization Outcome: Completed Problem: Discharge Barriers Goal: Patient's discharge needs are met Description: Collaborate with interdisciplinary team and initiate plans and interventions as needed. Outcome: Completed Problem: Reduced risk for falls/injury Goal: Reduced Risk for Falls/Injury Outcome: Completed Goal: Reduced Risk of Confusion (Acute vs Chronic) Outcome: Completed Goal: Reduced Risk of Symptomatic Depression Outcome: Completed Goal: Reduced Risk of Altered Elimination Outcome: Completed Goal: Reduced Risk of Dizziness/Vertigo/Balance Outcome: Completed Goal: Reduced Risk of Polypharmacy Outcome: Completed Problem: Discharge Planning Goal: Knowledge of discharge instructions Outcome: Completed Problem: Pain control/comfort Goal: Promote pain control/comfort Outcome: Completed Problem: Skin integrity, Impaired-wound Goal: Absence of new skin breakdown Outcome: Completed Goal: Evidence of wound healing Outcome: Completed Problem: Skin integrity, Impaired-pressure injury/ulcer Goal: Absence of new skin breakdown Outcome: Completed Goal: Evidence of pressure injury/ulcer healing Outcome: Completed Problem: Skin integrity, at risk Goal: Absence of new skin breakdown Outcome: Completed Problem: Moisture associated skin impairment Goal: Reduce moisture exposure Outcome: Completed Goal: Evidence of wound healing Outcome: Completed Goal: Evidence of pressure injury/ulcer healing Outcome: Completed Goal: Absence of new skin breakdown Outcome: Completed Problem: Pain - Acute Goal: Achieve acceptable pain level Outcome: Completed Problem: Abnormal Serum Glucose Level Goal: Glucose level within specified parameters Outcome: Completed * Jamie Hilliard MD - 02/09/2023 11:43 AM CDT Progress note SUBJECTIVE: Patient seen and examined Told me that he got up with occupational therapy and walked up to the sink. Still feels weak especially in the lower extremities. Did not get too much winded No acute events overnight. Chief Complaint: Follow-up of medical comanagement of diabetes Review of Systems Constitutional: Negative for chills and fever. HENT: Negative for congestion and sore throat. Respiratory: Positive for shortness of breath. Negative for cough. Cardiovascular: Positive for leg swelling. Negative for chest pain. Gastrointestinal: Negative for abdominal pain, constipation, diarrhea and vomiting. Genitourinary: Negative for dysuria and urgency. Neurological: Positive for weakness. Negative for sensory change, speech change and focal weakness. Psychiatric/Behavioral: The patient is nervous/anxious. OBJECTIVE Blood pressure 125/71, pulse 81, temperature 98.1 ??F (36.7 ??C), temperature source Oral, resp. rate 18, height 5' 6 (1.676 m), weight 98.9 kg (218 lb), SpO2 100 %. Physical Exam Constitutional: Appearance: He is obese. He is ill-appearing. HENT: Head: Normocephalic and atraumatic. Cardiovascular: Rate and Rhythm: Normal rate and regular rhythm. Heart sounds: No murmur heard. Pulmonary: Effort: Pulmonary effort is normal. No respiratory distress. Breath sounds: Rales present. No wheezing. Abdominal: General: Abdomen is flat. Bowel sounds are normal. There is no distension. Tenderness: There is no abdominal tenderness. Musculoskeletal: Right lower leg: Edema present. Left lower leg: Edema present. Comments: 1 extremity pitting edema 2+ upto thighs b/l Bilateral venegas superficial ulcers Skin: General: Skin is warm. Neurological: General: No focal deficit present. Mental Status: Mental status is at baseline. LABS:. Recent Labs 02/07/23 0538 02/07/23 1433 02/07/23203602/08/23 0813 WBC 7.55 -- -- 9.65 HGB 6.8* 8.6* 8.7* 8.6* HCT 24.2* 29.3* 29.3* 28.9* MCV 79.6 -- -- 79.2 PLT 158 -- -- 183 RBC 3.04* -- -- 3.65* Recent Labs Lab 02/06/23 0156 02/06/232 02/07/23 0538 02/08/23 0813 02/09/23 0258 NA 132* -- 138 133* 131* K 4.3 -- 4.2 3.8 3.7 CL 99 -- 106 98 92* CO2 26.2 -- 27.1 31.8 31.1 AGAP 6.8 -- 4.9* 3.2* 7.9 BUN 72* -- 56* 55* 54* CR 2.81* -- 2.08* 2.53* 2.27* GLU 173* -- 84 161* 228* CA 8.8 -- 9.1 9.3 9.6 TP 7.8 7.5 -- -- -- ALB 3.1* 3.0* -- -- -- TBIL 1.2* 1.2* -- -- -- ALKP 144* 130* -- -- -- AST 25 23 -- -- -- ALT 19 19 -- -- -- Recent Labs Lab 02/07/23 0538 02/08/23 0152 02/09/23 0258 INR 2.4* 2.4* 2.3* Intake/Output Summary (Last 24 hours) at 02/09/2023 1143 Last data filed at 02/09/2023 0803 Gross per 24 hour Intake 1060 ml Output 4525 ml Net -3465 ml RADIOLOGY : REVIEWED MEDICATIONS Scheduled medications allopurinol 300 mg Oral Daily aspirin 81 mg Oral Daily atorvastatin 80 mg Oral Nightly at bedtime bacitracin Topical BID carvedilol 3.125 mg Oral BID fluticasone-salmeterol 2 puff Inhalation 2 times daily furosemide 40 mg Oral BID gabapentin 400 mg Oral Daily gabapentin 800 mg Oral nightly insulin glargine 10 Units Subcutaneous Nightly at bedtime insulin lispro 0-12 Units Subcutaneous 4x Daily AC and at bedtime insulin lispro 5 Units Subcutaneous TID WC lidocaine 1 patch Transdermal Q24H methocarbamol 500 mg Oral 4x Daily metOLazone 2.5 mg Oral Daily normal saline 3-10 mL Intravenous Q8H pantoprazole EC 40 mg Oral Daily rOPINIRole 4 mg Oral Nightly at bedtime sertraline 50 mg Oral Daily spironolactone 25 mg Oral Daily tiotropium 2 puff Inhalation Daily traZODone 200 mg Oral Nightly at bedtime warfarin (COUMADIN) pharmacy to dose Oral See Admin Instructions warfarin 6 mg Oral Once Infusion PRN acetaminophen OR acetaminophen OR acetaminophen, albuterol sulfate HFA, glucose, dextrose 10 % bolus, docusate sodium, glucagon, HYDROcodone- acetaminophen, HYDROcodone-acetaminophen, normal saline, senna-docusate ASSESSMENT /PLAN 67 years old male with past medical history of CAD, COPD, aortic stenosis status post bioprostheticAVR 2013, type 2 diabetes, A-fib on warfarin, chronic systolic/diastolic CHF, severe pulmonary hypertension, hypertension, hyperlipidemia, CKD stage IV baseline creatinine 1.5-2, CVA, gout, cervical s pine disease pending surgery, hypothalamic lipoma admitted 02/06/2023 under trauma service after suffering right-sided rib fractures from mechanical fall. Hospitalist team was consulted for comanagement of his diabetes. PLAN: #Right-sided rib fractures status post mechanical fall -X-ray: Anterior right 5/6 and lateral 7 rib buckling. Old rib fractures are seen on the right and left. -Management per trauma surgery #Diabetes type 2, A1c 7.8 -Discharge recommendations: Glipizide 5 mg daily, Levemir 15 units nightly, continue Jardiance. #Acute on chronic anemia due to blood loss -Baseline hemoglobin 8-9, status post 1 packed RBC on 02/07/2023 for hemoglobin of 7.3. Hemoglobin is 8.6 prior to discharge. #History of CAD #Hypertension, hyperlipidemia #History of CVA -Continue aspirin, statin, beta-blockers. #Chronic diastolic/systolic CHF exacerbation #Aortic stenosis status post bioprosthetic AVR -Echocardiogram 12/29/22: EF 37%, grade 2 diastolic dysfunction, mild LVH, moderately depressed RV function -Still has lower extremity edema up to thighs. Continue Lasix 40 mg BID along with oral metolazone 2.5 mg daily. Continues to diurese well. -Sodium 131, advised fluid restriction 1.5 L in 24 hours. Continue at discharge, repeat BMP in 2 to3 days to follow-up on sodium and kidney function #History of A-fib on chronic anticoagulation with warfarin -Coreg 3.125 mg twice daily, on Coumadin with therapeutic INR. Appreciate pharmacy assistance -At discharge, continue warfarin 5.5 mg daily, recheck INR in 2 to 3 days. -Would recommend stopping anticoagulant going forwards if patient remains a fall risk. #History of COPD #Severe pulmonary hypertension -Continue home bronchodilators. No significant hypercapnia on VBG #CKD stage IV baseline creatinine 1.5-2 -Creatinine slightly elevated 2.27 on the day of discharge. Would recommend repeat BMP in the next 1 week #Cervical spinal disease pending spine surgery DVT Prophylaxis: Therapeutic INR on warfarin Code status: Full Code Time spent: 53 minutes Jamie Hilliard MD 11:43 AM 02/09/2023 * Teresa Eugene - 02/09/2023 11:40 AM CDTSummary: CM Progress Note 02/09/2023 11:50 AM Reviewed follow-up copy of the Important Message from Medicare with Patient. The Patient acknowledged understanding. A copy of the form was left with the Patient. 02/09/23 1149 Forms Reinforcement Important Message from Medicare (Subsequent IMM) Signed Copy delivered * JAKE Gongora - 02/09/2023 11:09 AM CDT OT Treatment Discharge Recommendation: Swing bed unit Activity Recommendation for restaurant area director: Up with gait belt x1 assist using 2 w/w to restroom, up in chair for every meal. 02/09/23 0837 Therapy Visit OT Received On 02/09/23 Reason for admission Patient is a 67 year old male brought in by EMS on 02/06 after a fall from standing. He c/o R chest wall pain, R hip pain. Head CT showed decreased density L temporal lobe could be from prior infarct, but acute on chronic infarct could not be excluded. CT chest showing multiple nondisplaced rib fractures. XR R hip was negative for acute fracture....PMH: CAD, COPD, Aortic stenosis, A-fib, DM, Pulmonary HTN, CKD.....Therapy orders: evaluate and treat Ordering Provider Alyssa Bucio PA-C Verified Two Patient Identifiers Yes Patient consents to therapy Yes Acute Inpatient OT Time Calculation OT Start Time 0837 OT Stop Time 0914 OT Time Calculation (min) 37 min Precautions General Precautions Bed Alarm;Chair Alarm;Fall Risk Skin Integrity BLE's wrapped Other tele Home Living Home Living Comments Per eval, pt lives with his daughter and her family [...] go out of the home. Pt reports 3 falls due to LE weakness/unsteadiness. DME: power recliner, cane, ww, riser. Since last admission patient reportshe has been working with home health PT and was about to be discharged from their services secondary to good progress. Does not have 15/[address] Subjective Subjective Pt sitting up in chair upon entering room 854, RN ok'd therapy session. Pt pleasantly agreeable to OT session using gait belt for transfers/mobility. Pain Pain Yes Pain Score Did not rate Location ribs Activity Tolerance Endurance Quality Fair Limiting Factors to Endurance Acute deconditioning;Pain;Weakness;Fatigue Activity Tolerance Comments Pt fatigues quickly and limited by pain, however very pleasant and cooperative with good therapy motivation. Cognition Overall Cognitive Status Impaired Arousal/Alertness Appropriate responses to stimuli Attention Span Appears intact Memory Appears intact Orientation Level Oriented to person;Oriented to place;Oriented to situation Following Commands Follows all commands and directions without difficulty Safety Judgment Decreased awareness of need for assistance Awareness of Errors Decreased awareness of errors Deficits Decreased awareness of deficits Problem Solving Assistance required to identify errors made Comments Pt alert and oriented, pt demosntrating decreased safety awareness and poor insight to deficits. Motor Planning Appears intact Perseveration Not present Initiation Cues to initiate tasks ADL Grooming Assistance CGA;Standing at sink Grooming Deficit Setup;Wash/dry hands;Wash/dry face;Teeth care;Brushing hair Grooming Comment Pt tolerated standing sink side to perform simple grooming tasks required min cuesfor walker placement and body positioning up close to sink. Pt required min cues for initiation of brushing of teeth and hair, and wash/dry of face and hands. required CGA for safety of balance. Bathing Assistance Stand by;CGA;Alternating sit/stand (sitting on shower chair) Bathing Deficit Setup;Increased time to complete;Chest;Right arm;Left arm;Abdomen;Perineal area;Buttocks;Left upper leg;Right upper leg Bathing Comment Pt instructed on using showe shampoo cap to wash hair, followed through using B UE to scrub head gently stating he wanted to get the dry blood out of his hair from his fall at home. Pt followed through with light sponge bath while seated on shower bench sink side with set-up using no rinse foam soap, requiring CGA while standing to wash karen area. UE Dressing Assistance Stand by;Sitting in chair UE Dressing Deficit Thread RUE;Thread LUE UE Dressing Comment Pt instructed on don/doff of gown with SBA. LE Dressing Comment B LE wrapped Toileting Assistance Minimal Toileting Deficit Perineal hygiene Toileting Comment Pt required encouragement to attempt perineal hygiene during bathing following through with min A for thoroughness limited by rib fx pain, Pt required additional time to complete BMand left with call cord and advised RN of pt needing time for toileting. Bed Mobility Other (Comment) Pt sitting up in chair upon arrival. Functional Transfers Sit to Stand Contact guard assist Bed to Chair Contact guard assist Functional Mobility Pt completed several sit <>stand transfers chair, shower bench with CGA required min cues for hand placement and safety training for eccentric control. Pt completed functional mobility in room using 2 w/w while mocking household distances to perform ADL tasks, required CGAwith cues for walker safety and body positioning. Balance Sitting - Static Independent Sitting - Dynamic Independent Standing - Static CGA;Support of both upper extremities Standing - Dynamic CGA;Support of both upper extremities Other (Comment) no overt LOB OT Assessment OT Assessment Pt progressing towards OT goals, pt very pleasant and cooperative with good therapy motivation. Pt limited by acute deconditioning, weakness, fatigue, and cognitive deficits. Pt will benefit from continued skilled OT in acute setting in order to increase safety and maximize independence with functional transfers and ADL tasks prior to returning home with his daughter, pt not safe enough at this time to return home however pending hospitalization and progression may d/c home. Modified [place] Score Interval Daily Interval Score 0-6 4 Recommendation OT Recommendation Swing bed unit Plan OT Treatment/Intervention Self-care training;Therapeutic exercises;Therapeutic activities;Cognitiveskills development;Safety;Functional activity;Patient/family training Progress Progressing toward goals OT Frequency 5 times/week OT - Next Appointment 02/09/23 If this is the last treatment note, it will serve as the discharge summary Yes End of Session End of Session Safety Chair alarm set/activated;Call light within reach;Nursing aware of session;Transfer status education End of Session Comment Pt left sitting on toilet to complete BM, RN made aware and left pt with call cord in reach. Education: Primary Learners Name: Obie Sims Primary Language of learner: Indian Patient was educated on transfers ADLs balance bed mobility therapy plan safety energy conservation. Education was completed one to one this date. Preference of learning new concepts one to one Barriers to education this date were pain fatigue cognition. Response to education this date verbalized understanding verbalized recall asks questions demos with verbal cues needs reinforcement needs follow up needs assistance. * Jaime Ricardo PharmD - 02/09/2023 10:38 AM CDT Warfarin - Pharmacy Dosing Service [...] with edema Home warfarin dose: 5.5 mg daily per pt Bridging agent: none Vitamin K use: No; (if yes, indicate date, dose, and route) Diet: PO Recent Labs Lab 02/06/23 0156 02/06/23 0552 02/06/23 2042 02/06/23 2351 02/07/23 0538 02/07/23 1433 02/07/23 2037 02/08/23 0813 HGB 7.7* < > -- < > 6.8* 8.6* 8.7* 8.6* HCT 26.5* < > -- < > 24.2* 29.3* 29.3* 28.9* PLT 166 -- -- -- 158 -- -- 183 AST 25 -- 23 -- -- -- -- -- ALT 19 -- 19 -- -- -- -- -- ALKP 144* -- 130* -- -- -- -- -- ALB 3.1* -- 3.0* -- -- -- -- -- < > = values in this interval not displayed. Date INR Dose Received 02/06 3.5 Hold 02/07 2.4 5 mg 02/08 2.4 5mg 02/09 2.3 Drug interactions: Potential to increase INR: Sertraline ([employer]), Ropinirole, Allopurinol ([employer]), getting regular APAP with norco usage Potential to decrease INR: trazodone, furosemide, metolazone Potential to increase the risk of bleeding: ASA Warfarin Sensitivity: moderate, based on the following risk factors: drug interactions, end state renal disease or Scr > 2.2 and age 66-79. Hgb/Hct today are stable, last labs 02/08 INR today is Therapeutic Patient reports last dose [employer] 02/05 AM. INR w/ significant fall. OK to resume dosing, since presenting INR a bit high. 6 mg warfarin tonight, f/u INR in the AM. If pt discharges would recommend home dose of 5.5mg to resume. Pharmacy will continue to monitor labs and notes daily, adjusting the dose as clinically appropriate. Thank you for the consult. Pharmacy to dose per Dr. Bill Mills/DO JAIME Queen, PharmD Phone number: [phone] 02/09/2023 10:38 AM * Karen Quezada RN - 02/09/2023 9:47 AM [place] [address] #[phone] fax #[phone] Pt/daughter have requested transport @ [place] transport van will transport pt today @ 1330.Pt willneed to be in the main lobby for transport @ 1330 today. TRAUMA service KESHA Miles aware of above. 8th floor charge manager aware of above. Pt aware of transport time. [facility] aware of transport time. * Randi Bucio RN - 02/08/2023 2:36 PM CDT 02/08/23 1400 Wound 12/28/22 Pretibial Right Date First Assessed/Time First Assessed: 12/28/221999 Location: Pretibial Wound Location Orientation: Right Pre-existing: Yes Wound Bed Assessment Partial Thickness;[place] Karen-wound Assessment Hemosiderin staining Wound Length (cm) (cluster) Drainage Amount Scant Interventions Cleansed Dressing Foam border adhesive;Tubigrip Dressing Changed New Wound 02/07/23 Pretibial Left Date First Assessed/Time First Assessed: 02/07/231999 Wound number: 1 Location: Pretibial Wound Location Orientation: Left Pre-existing: Yes Wound Bed Assessment Partial Thickness;Full Thickness;[place] Karen-wound Assessment Hemosiderin staining;Edema Wound Length (cm) (cluster largest wd 6x3x 0.2) Drainage Amount Scant Dressing Foam border adhesive;Tubigrip Dressing Changed New Bilateral lower legs washed and lubricated. Daughter at bedside--reports there has been improvementfollowed by home health with 2x week dressing changes--that sounds like 2 layer compression wraps. Obie has been told he needs his legs healed before the spine surgery can proceed. STELLA's done in November 2022, discussed with Obie how his CHF and leg ulcers are related. Leg ulcerations in clusters with pink base, hemosiderin staining, no weeping below knees at this time, edema continues up to thighs. Will ask for Dr Delgado to see for edema management and wound care. Foam dressings placed over ulcerations, stockinette, tubigrip size E from toe to knee. Had compression socks at home--skin dry and peeled with sock removal. 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 Reason for admission Patient is a 67 year old male brought in by EMS on 02/06 after a fall from standing. He c/o R chest wall pain, R hip pain. Head CT showed decreased density L temporal lobe could be from prior infarct, but acute on chronic infarct could not be excluded. CT chest showing multiple nondisplaced rib fractures. XR R hip was negative for acute fracture....PMH: CAD, COPD, Aortic stenosis, A-fib, DM, Pulmonary HTN, CKD.....Therapy orders: evaluate and treat Verified Two Patient Identifiers Yes Patient consents to therapy Yes Acute Inpatient PT Time Calculation PT Start Time 0700 PT Stop Time 0724 PT Time Calculation (min) 24 min Precautions General Precautions Bed Alarm;Chair Alarm;Fall Risk Skin Integrity BLE's wrapped Other tele Home Living Home Living Comments Per eval, pt lives with his daughter and her family [...] go out of the home. Pt reports 3 falls due to LE weakness/unsteadiness. DME: power recliner, cane, ww, riser. Since last admission patient reportshe has been working with home health PT and was about to be discharged from their services secondary to good progress. Does not have 24/[address] Activity Tolerance Limiting Factors to Endurance Acute deconditioning;Pain;Weakness;Fatigue Cognition Overall Cognitive Status Impaired Arousal/Alertness Appropriate responses to stimuli Attention Span Appears intact Memory Appears intact Orientation Level Oriented to person;Oriented to place;Oriented to situation Following Commands Follows all commands and directions without difficulty Safety Judgment Decreased awareness of need for assistance Awareness of Errors Decreased awareness of errors Deficits Decreased awareness of deficits Problem Solving Assistance required to identify errors made TRANSFERS Sit to Stand Contact guard assist Other (Comment) Patient requires extra time to complete sit <> stands. Patient performed 3 sit <> stands from recliner to 2ww, CGA. Patient reports that he has lift chair at home Gait Gait Assistance Contact guard assist Assistive Device 2 Wheeled walker Distance Ambulated (ft) 140 ft Other (Comment) Patient demonstrates decreased lana, decreased step length, forward flexed posture, and no overt LOB. Balance Sitting - Static Independent Sitting - Dynamic SBA Standing - Static CGA;Support of both upper extremities Standing - Dynamic CGA;Support of both upper extremities Other (Comment) no overt LOB PT Assessment PT Assessment Patient tolerated treatment session well this date with improving gait distance, easeof transfers, and activity tolerance. Patient would benefit from continued therapy at a swing bed unit to improve LE strength, endurance, and balance to improve overall functional mobility. Modified [place] Score Interval Daily Interval Score 0-6 4 Recommendation PT Recommendation Swing bed unit Plan PT Treatments/Interventions Gait Training;Therapeutic Exercises;Therapeutic Activities;Neuromuscular re-education Progress Progressing toward goals PT Frequency 5 times/week PT - Next Appointment 02/08/23 If this is the last treatment note,it will serve as the discharge summary Yes End of Session End of Session Safety Chair alarm set/activated;Call light within reach;Nursing aware of session End of Session Comment up in chair with breakfast tray in front of him Education: Primary Learners Name: Obie Sims Primary Language of learner: Indian Patient was educated on stroke rehabilitation management precautions transfers balance bed mobility therapy plan gait safety. Education was completed one to one verbal hands-on demonstration this date. Preference of learning new concepts one to one verbal hands-on demonstration Barriers to education this date were pain fatigue. Response to education this date verbalized understanding needs follow up needs assistance. * Karen Quezada RN - 02/08/2023 1:30 PM CDT Spoke with pt/daughter @ bedside re therapy recommendations for short term rehab placement @ [place].Pt is in agreement for rehab placement.He relates his 1st choice for placement would be [place], [place]. Referral sent. * Opal Christianson RN - 02/08/2023 12:59 PM CDT Problem: Pain Goal: Patient's pain/discomfort is manageable Description: Assess and monitor patient's pain using appropriate pain scale. Collaborate with interdisciplinary team and initiate plan and interventions as ordered. Re-assess patient's pain level 30 - 60 minutes after pain management intervention. Outcome: Met This Shift Problem: Safety Goal: Patient will be injury free during hospitalization Description: Assess and monitor vitals signs, neurological status including level of consciousness and orientation. Assess patient's risk for falls and implement fall prevention plan of care and interventions per hospital policy. Ensure arm band on, uncluttered walking paths in room, adequate room lighting, call light and overbed table within reach, bed in low position, wheels locked, side rails up per policy, and non-skid footwear provided. Outcome: Met This Shift Problem: Daily Care Goal: Daily care needs are met Description: Assess and monitor ability to perform self care and identify potential discharge needs. Outcome: Met This Shift Problem: Psychosocial Needs Goal: Demonstrates ability to cope with hospitalization/illness Description: Assess and monitor patients ability to cope with his/her illness. Outcome: Met This Shift Problem: Reduced risk for falls/injury Goal: Reduced Risk for Falls/Injury Outcome: Met This Shift Problem: Pain control/comfort Goal: Promote pain control/comfort Outcome: Met This Shift Problem: Skin integrity, Impaired-wound Goal: Absence of new skin breakdown Outcome: Met This Shift Problem: Skin integrity, Impaired-pressure injury/ulcer Goal: Absence of new skin breakdown Outcome: Met This Shift Problem: Skin integrity, at risk Goal: Absence of new skin breakdown Outcome: Met This Shift * Karen Quezada RN - 02/08/2023 11:44 AM CDT PASSR screen completed Assessment Pro Individual ID:[id number] Assessment ID:[id number] * Jamie Hilliard MD - 02/08/2023 10:43 AM CDT Progress note SUBJECTIVE: Patient sitting up in the chair Has significant lower extremity edema Remains comfortable on room air No acute events overnight. Chief Complaint: Follow-up of medical comanagement of diabetes Review of Systems Constitutional: Negative for chills and fever. HENT: Negative for congestion and sore throat. Respiratory: Positive for shortness of breath. Negative for cough. Cardiovascular: Positive for leg swelling. Negative for chest pain. Gastrointestinal: Negative for abdominal pain, constipation, diarrhea and vomiting. Genitourinary: Negative for dysuria and urgency. Neurological: Positive for weakness. Negative for sensory change, speech change and focal weakness. Psychiatric/Behavioral: The patient is nervous/anxious. OBJECTIVE Blood pressure 117/60, pulse 78, temperature 97.9 ??F (36.6 ??C), resp. rate 18, height 5' 6 (1.676 m), weight 98.9 kg (218 lb), SpO2 92 %. Physical Exam Constitutional: Appearance: He is obese. He is ill-appearing. HENT: Head: Normocephalic and atraumatic. Cardiovascular: Rate and Rhythm: Normal rate and regular rhythm. Heart sounds: No murmur heard. Pulmonary: Effort: Pulmonary effort is normal. No respiratory distress. Breath sounds: Rales present. No wheezing. Abdominal: General: Abdomen is flat. Bowel sounds are normal. There is no distension. Tenderness: There is no abdominal tenderness. Musculoskeletal: Right lower leg: Edema present. Left lower leg: Edema present. Comments: 1 extremity pitting edema 2+ upto thighs b/l Skin: General: Skin is warm. Neurological: General: No focal deficit present. Mental Status: Mental status is at baseline. LABS:. Recent Labs 02/06/23 0156 02/06/23 0552 02/07/23 0538 02/07/23 1433 02/07/23 2037 02/08/23 0813 WBC 10.96* -- 7.55 -- -- 9.65 HGB 7.7* < > 6.8* 8.6* 8.7* 8.6* HCT 26.5* < > 24.2* 29.3* 29.3* 28.9* MCV 77.9* -- 79.6 -- -- 79.2 PLT 166 -- 158 -- -- 183 RBC 3.40* -- 3.04* -- -- 3.65* < > = values in this interval not displayed. Recent Labs Lab 02/06/23 01502/06/23204102/07/23 0538 02/08/23 0813 NA 132* -- 138 133* K 4.3 -- 4.2 3.8 CL 99 -- 106 98 CO2 26.2 -- 27.1 31.8 AGAP 6.8 -- 4.9* 3.2* BUN 72* -- 56* 55* CR 2.81* -- 2.08* 2.53* GLU 173* -- 84 161* CA 8.8 -- 9.1 9.3 TP 7.8 7.5 -- -- ALB 3.1* 3.0* -- -- TBIL 1.2* 1.2* -- -- ALKP 144* 130* -- -- AST 25 -- -- ALT 19 -- -- Recent Labs Lab 02/06/2315502/07/23 0538 02/08/23 0152 INR 3.5* 2.4* 2.4* Intake/Output Summary (Last 24 hours) at 02/08/2023 1043 Last data filed at 02/08/2023 0638 Gross per 24 hour Intake 2036 ml Output 3550 ml Net -1514 ml RADIOLOGY : REVIEWED MEDICATIONS Scheduled medications allopurinol 300 mg Oral Daily aspirin 81 mg Oral Daily atorvastatin 80 mg Oral Nightly at bedtime bacitracin Topical BID carvedilol 3.125 mg Oral BID fluticasone-salmeterol 2 puff Inhalation 2 times daily furosemide 40 mg Oral BID gabapentin 400 mg Oral Daily gabapentin 800 mg Oral nightly insulin glargine 8 Units Subcutaneous Nightly at bedtime insulin lispro 0-12 Units Subcutaneous 4x Daily AC and at bedtime lidocaine 1 patch Transdermal Q24H methocarbamol 500 mg Oral 4x Daily metOLazone 2.5 mg Oral Daily normal saline 3-10 mL Intravenous Q8H pantoprazole EC 40 mg Oral Daily rOPINIRole 4 mg Oral Nightly at bedtime sertraline 50 mg Oral Daily spironolactone 25 mg Oral Daily tiotropium 2 puff Inhalation Daily traZODone 200 mg Oral Nightly at bedtime warfarin (COUMADIN) pharmacy to dose Oral See Admin Instructions warfarin 5 mg Oral Once Infusion PRN acetaminophen OR acetaminophen OR acetaminophen, albuterol sulfate HFA, docusate sodium, HYDROcodone-acetaminophen, HYDROcodone-acetaminophen, normal saline, senna-docusate ASSESSMENT /PLAN 67 years old male with past medical history of CAD, COPD, aortic stenosis status post bioprostheticAVR 2013, type 2 diabetes, A-fib on warfarin, chronic systolic/diastolic CHF, severe pulmonary hypertension, hypertension, hyperlipidemia, CKD stage IV baseline creatinine 1.5-2, CVA, gout, cervical s pine disease pending surgery, hypothalamic lipoma admitted 02/06/2023 under trauma service after suffering right-sided rib fractures from mechanical fall. Hospitalist team was consulted for comanagement of his diabetes. PLAN: #Right-sided rib fractures status post mechanical fall -X-ray: Anterior right 5/6 and lateral 7 rib buckling. Old rib fractures are seen on the right and left. -Management per trauma surgery #Diabetes type 2, A1c 7.8 -On glipizide and insulin at home. -We will continue with Lantus 8 units nightly along with moderate dose correction scale. Carb consistent diet. #Acute on chronic anemia due to blood loss -Baseline hemoglobin 8-9, status post 1 packed RBC on 02/07/2023 for hemoglobin of 7.3. Hemoglobin is 8.6 this morning #History of CAD #Hypertension, hyperlipidemia #History of CVA -Continue aspirin, statin, beta-blockers. #Chronic diastolic/systolic CHF exacerbation #Aortic stenosis status post bioprosthetic AVR -Echocardiogram 12/29/22: EF 37%, grade 2 diastolic dysfunction, mild LVH, moderately depressed RV function -Still has lower extremity edema up to thighs. Continue Lasix 40 mg BID along with oral metolazone 2.5 mg daily. Strict I's and O's, daily weights #History of A-fib on chronic anticoagulation with warfarin -Coreg 3.125 mg twice daily, on Coumadin with therapeutic INR. Appreciate pharmacy assistance -Would recommend stopping anticoagulant going forwards if patient remains a fall risk. #History of COPD #Severe pulmonary hypertension -Continue home bronchodilators. Check elective VBG to rule out hypercapnia #CKD stage IV baseline creatinine 1.5-2 -Creatinine slightly elevated 2.53 this morning. We will continue to monitor with diuresis #Cervical spinal disease pending spine surgery DVT Prophylaxis: Therapeutic INR on warfarin Code status: Full Code Time spent: 59 minutes Jamie Hilliard MD 10:43 AM 02/08/2023 * Karen Quezada RN - 02/08/2023 10:28 AM CDT 02/08/23 1028 Referral Data Source of Information Patient;Chart review Patient Information Primary Caregiver Family;Self (Pt lives with his daughter & her family in [place], [place]. Pt does not drive.) Current living Situation Family members;Children Type of Residence Private residence (1 story house. Pt has apartment in basement.) Support System Immediate family;Pt Requires Support for ADL's Are you employed? Not Employed Recent Hospitalization Recent Hospitalization within 30 days No Baseline ADL's Functional Status Moderate assistance (Requires assist with bathing, grooming, dressing.) Active DME Cane;Lifts;Walker;Oxygen (4 WW. Cane. Recliner lift chair. Grab bars in shower. Stair lift to basement.) Behavior Oriented Communication Talks;Understands speaking;Understands Indian;Other (Comment) (Wears reading glasses.) Current Services Being Provided Outpt therapy (Previous short term rehab placement @ [place], [place] & [place], [place].) DC screening tool This is a screening tool it does not take the place of a physical or occupational therapy evaluation. The screening is to screen the patient for what services and destination would be beneficial for patient for next level of care Conversation with the patient/family;Chart Review Discharge to Prior Residence/Living Situation - No New Needs Identified - Will continue to Assess No 1.Is the patient homebound due to functional status? (note: the patient may go to dialysis, physician appt, [facility] with assistance and still be homebound) Yes Home with Home Health Care (HHC) Services: If YES to questions 2-5, consider discharge with home health, If NO proceed to next section 2.Does the patient require assistance with ADL, ambulation or transfer is there a personal care assistant or assistance in home? Yes 3.Does the patient ambulate in home with assisted device or supervision? Yes 4.Is the patient able to transfer with minimal supervision or caregiver assistance? Yes 5.Does the patient require one or more skilled care needs? Yes [facility] Facility (SNF): If NO, to question 6, refer to HHC; If YES to questions 7-9 consider transition to SNF 6.Does the patient, if qualified agree to transition to a skilled facility for nursing and therapy needs and understand the financial obligation? CM/SW should explain the services provided at a SNF level facility Yes 7.Does the patient require assistance with ADL, transfer and ambulation and have no family, caregiver, or other support at home? Yes 8.Does the patient have cognitive difficulties that may requiring additional support or therapy? No 9.Does the patient have comorbid conditions that require 24/7 nursing care? Yes Anticipated DC Plan Patient expects to be discharged to: Rehab facility * Aaliyah GomezD - 02/08/2023 9:48 AM CDT Warfarin - Pharmacy Dosing Service Note Obie Sims is a 67-year-old male for which pharmacy has been consulted to dose warfarin for A.fib. Goal INR is 2-3. Warfarin Order Set Activated: Yes Warfarin Start Date: continuation from home Past Medical History: Diagnosis Date Abnormal ankle brachial index (TSELLA) Acute on chronic heart failure, unspecified heart failure type (CMS/HCC) Anxiety Aortic valve stenosis Arthritis Asthma, mild persistent 04/06/2021 Atrial fibrillation ([facility]/HCC) s/p PVI/[facility] 10/2015 Bilateral leg pain Carotid disease, bilateral ([facility]/HCC) CHF (congestive heart failure) ([facility]/HCC) Claudication ([facility]/HCC) COPD (chronic obstructive pulmonary disease) ([facility]) Coronary artery disease Diabetes mellitus, type II ([facility]/HCC) Edema 04/19/2018 2+ pitting History of blood transfusion Hyperlipidemia Hypertension LV dysfunction Osteoarthritis PAD (peripheral artery disease) ([facility]) Pneumonia Restless leg syndrome S/P aortic valve replacement with bioprosthetic valve 2013 SOB (shortness of breath) Stroke ([facility]) Varicose veins of bilateral lower extremities with other complications Weight gain with edema Home warfarin dose: 5.5 mg daily per pt Bridging agent: none Vitamin K use: No; (if yes, indicate date, dose, and route) Diet: PO Recent Labs Lab 02/06/23 0156 02/06/23 0552 02/06/23 2042 02/06/23 2351 02/07/23 0538 02/07/23 1433 02/07/23 2037 02/08/23 0813 HGB 7.7* < > -- < > 6.8* 8.6* 8.7* 8.6* HCT 26.5* < > -- < > 24.2* 29.3* 29.3* 28.9* PLT 166 -- -- -- 158 -- -- 183 AST - -- -- -- -- -- ALT 19 -- 19 -- -- -- -- -- ALKP 144* -- 130* -- -- -- -- -- ALB 3.1* -- 3.0* -- -- -- -- -- < > = values in this interval not displayed. Date INR Dose Received 02/06 3.5 Hold 02/07 2.4 5 mg 02/08 2.4 Drug interactions: Potential to increase INR: Sertraline ([employer]), Ropinirole, Allopurinol ([employer]), getting regular APAP with norco usage Potential to decrease INR: trazodone, furosemide, metolazone Potential to increase the risk of bleeding: ASA Warfarin Sensitivity: moderate, based on the following risk factors: drug interactions, end state renal disease or Scr > 2.2 and age 66-79. Hgb/Hct today are stable INR today is Therapeutic Patient reports last dose 02/05 AM. INR w/ significant fall. OK to resume dosing, since presenting INR a bit high, will slightly reducehome dosing. 5 mg warfarin tonight again, f/u INR in the AM Pharmacy will continue to monitor labs and notes daily, adjusting the dose as clinically appropriate. Thank you for the consult. Pharmacy to dose per Dr. Bill RICARDO, PharmD Phone number: [phone] 02/08/2023 9:48 AM * Kyra Heaton NP - 02/08/2023 9:04 AM CDT Images from the original note were not included. TRAUMA PROGRESS NOTE ACUTE CARE SURGERY SERVICE Kyra Heaton NP, 02/08/2023, 9:04 AM [facility] LEVEL 1 TRAUMA CENTER ACUTE CARE SURGERY SERVICE: EMERGENCY SURGERY, TRAUMA, SURGICAL CRITICAL CARE [address] [place] [id number] TO CONTACT PROVIDERS: Trauma Surgeon/Critical Care Store Shopper MD: [id number] Emergency Surgery MD: [id number] Advanced Practice Provider - Trauma: [id number] Advanced Practice Provider - Emergency Surgery [id number] Name: Obie Sims Date of : 1955 Room/Bed: 854/ Date: 02/08/2023 Time: 9:04 AM ASSESSMENT: 67-year-old male who presents with Rib fractures PLAN: Ok for diet Multimodal pain control 1 U PRBC transfused. Repeat Hgb 8.6 oob PT/OT eval- recommending swing bed placement Continue to closely monitor Hospitalists consulted and on board to manage Medical issues: DM Disposition: Social work/case management for discharge/transfer dispostion, Disposition under consideration per patient assessment, Continue to re-assess CHIEF COMPLAINT: Rib fractures [S22.49XA] Fall [W19.XXXA] Scalp laceration [S01.01XA] SUBJECTIVE: Resting comfortably. Still complains of pain around rib fracture area. Up in chair. Hyperglycemia overnight. Medicine consulted for assistance CURRENT MEDS: Scheduled Meds: allopurinol 300 mg Oral Daily aspirin 81 mg Oral Daily atorvastatin 80 mg Oral Nightly at bedtime bacitracin Topical BID carvedilol 3.125 mg Oral BID fluticasone-salmeterol 2 puff Inhalation 2 times daily furosemide 40 mg Oral BID gabapentin 400 mg Oral Daily gabapentin 800 mg Oral nightly insulin glargine 8 Units Subcutaneous Nightly at bedtime insulin lispro 0-12 Units Subcutaneous 4x Daily AC and at bedtime lidocaine 1 patch Transdermal Q24H methocarbamol 500 mg Oral 4x Daily metOLazone 2.5 mg Oral Daily normal saline 3-10 mL Intravenous Q8H pantoprazole EC 40 mg Oral Daily rOPINIRole 4 mg Oral Nightly at bedtime sertraline 50 mg Oral Daily spironolactone 25 mg Oral Daily tiotropium 2 puff Inhalation Daily traZODone 200 mg Oral Nightly at bedtime warfarin (COUMADIN) pharmacy to dose Oral See Admin Instructions Continuous Infusions: PRN Meds:acetaminophen OR acetaminophen OR acetaminophen, albuterol sulfate HFA, docusate sodium, HYDROcodone-acetaminophen, HYDROcodone- acetaminophen, normal saline, senna-docusate REVIEW OF SYSTEMS: Pertinent items are noted in HPI. OBJECTIVE: Vital Signs Last 24 Hours: Temp: [97.5 ??F (36.4 ??C)-98.2 ??F (36.8 ??C)] 97.9 ??F (36.6 ??C) Pulse: [74-90] 78 Resp: [18] 18 BP: (116-135)/(41-76) 117/60 I/O totals for the last 24 hours: Intake/Output Summary (Last 24 hours) at 02/08/2023 0904 Last data filed at 02/08/2023 0638 Gross per 24 hour Intake 2036 ml Output 4150 ml Net -2114 ml PHYSICAL EXAM: General appearance: alert and oriented, oriented to person, place, and time, and not in distress Neurological: Grossly normal neurological examination, appropriate, and conversant, Alert and oriented, Following commands Scalp: abrasions healing Face: Structural elements stable, facial soft tissue normal, Abrasion/blood over right face/forehead Eyes: Tracking without difficulty, extra-ocular muscles intact, Gross eye exam normal, No visual field deficits reported, Pupil exam equal and reactive to light Ears: Hearing intact, not deaf, No deformity noted in bilateral ears Nose: Nasal septum midline, no rhinorrhea or epistaxis Mouth: Mucous membranes moist, no signficant deformity or malocclusion Neck: Trachea midline, Symmetric, Cervical collar in place Chest: No dyspnea or respiratory distress noted, sufficient air movement, broadly clear Heart: S1 and S2 normal, normal rate, bilateral 2+ pitting edema Abdomen: soft, nontender, nondistended Pelvis: stable pelvis, no signs of structural deformity and Rectal: no lesions or tenderness noted, grossly normal genitourinary exam Back exam: soft tissues broadly normal, no step-offs noted on thoracic or lumbar spine Musculoskeletal: Motor and sensory grossly normal bilaterally Skin: warm and dry, normal coloration and turgor, no suspicious skin lesions noted Psychiatric: Mood and affect appropriate, alert, and oriented LABS: Recent Labs Lab 02/06/23 0156 02/06/23 0552 02/06/23 2042 02/06/23 2351 02/07/23 0538 02/07/23 1433 02/07/23 2037 02/08/23 0152 02/08/23 0813 WBC 10.96* -- -- -- 7.55 -- -- -- 9.65 HGB 7.7* < > -- < > 6.8* 8.6* 8.7* -- 8.6* HCT 26.5* < > -- < > 24.2* 29.3* 29.3* -- 28.9* PLT 166 -- -- -- 158 -- -- -- 183 INR 3.5* -- -- -- 2.4* -- -- 2.4* -- PTT 39.3* -- -- -- -- -- -- -- -- NA 132* -- -- -- 138 -- -- -- 133* K 4.3 -- -- -- 4.2 -- -- -- 3.8 CL 99 -- -- -- 106 -- -- -- 98 CO2 26.2 -- -- -- 27.1 -- -- -- 31.8 AGAP 6.8 -- -- -- 4.9* -- -- -- 3.2* BUN 72* -- -- -- 56* -- -- -- 55* CR 2.81* -- -- -- 2.08* -- -- -- 2.53* GLU 173* -- -- -- 84 -- -- -- 161* CA 8.8 -- -- -- 9.1 -- -- -- 9.3 TP 7.8 -- 7.5 -- -- -- -- -- -- ALB 3.1* -- 3.0* -- -- -- -- -- -- TBIL 1.2* -- 1.2* -- -- -- -- -- -- ALKP 144* -- 130* -- -- -- -- -- -- AST 25 -- 23 -- -- -- -- -- -- ALT 19 -- 19 -- -- -- -- -- -- MAGNESIUM -- -- -- -- 2.4 -- -- -- 2.1 PHOS -- -- -- -- 3.8 -- -- -- 3.8 < > = values in this interval not displayed. No results found for: PH, PCO2, PO2, [id number], BICARBWB, BASEDEFICIT, BASEEXCESS No results for input(s): ABORH in the last 168 hours. No results for input(s): CKTOTAL in the last 168 hours. CULTURES & SENSITIVITIES: Results for orders placed or performed during the hospital encounter of 02/06/23 (from the past 336hour(s)) CULTURE URINE Collection Time: 02/06/23 6:28 AM Specimen: URINE, CLEAN CATCH Result Value Ref Range SPEC DESCRIPTION URINE CLEAN CATCH SPECIAL REQUESTS NO SPECIAL REQUEST CULTURE RESULT FEW CONTAMINANTS No results found for this visit on 02/06/23 (from the past 336 hour(s)). PATHOLOGY: * Cannot find OR log * Cosigned by Angeles Carney DO at 02/08/2023 3:25 PM CDT * Roseanna Stevens RN - 02/08/2023 1:11 AM CDT Problem: Skin integrity, Impaired-wound Goal: Absence of new skin breakdown Outcome: Not Progressing Problem: Skin integrity, at risk Goal: Absence of new skin breakdown Outcome: Not Progressing Problem: Abnormal Serum Glucose Level Goal: Glucose level within specified parameters Outcome: Progressing Problem: Pain Goal: Patient's pain/discomfort is manageable Description: Assess and monitor patient's pain using appropriate pain scale. Collaborate with interdisciplinary team and initiate plan and interventions as ordered. Re-assess patient's pain level 30 - 60 minutes after pain management intervention. Outcome: Met This Shift Problem: Safety Goal: Patient will be injury free during hospitalization Description: Assess and monitor vitals signs, neurological status including level of consciousness and orientation. Assess patient's risk for falls and implement fall prevention plan of care and interventions per hospital policy. Ensure arm band on, uncluttered walking paths in room, adequate room lighting, call light and overbed table within reach, bed in low position, wheels locked, side rails up per policy, and non-skid footwear provided. Outcome: Met This Shift Problem: Daily Care Goal: Daily care needs are met Description: Assess and monitor ability to perform self care and identify potential discharge needs. Outcome: Met This Shift Problem: Reduced risk for falls/injury Goal: Reduced Risk for Falls/Injury Outcome: Met This Shift Problem: Pain control/comfort Goal: Promote pain control/comfort Outcome: Met This Shift Problem: Moisture associated skin impairment Goal: Reduce moisture exposure Outcome: Met This Shift * Alyssa Bucio PA-C - 02/07/2023 7:42 PM CDT TRAUMA - TERTIARY SURVEY NOTE ACUTE CARE SURGERY SERVICE ALYSSA BUCIO PA-C, 02/07/2023, 7:42 PM [facility] LEVEL 1 TRAUMA CENTER ACUTE CARE SURGERY SERVICE: EMERGENCY SURGERY, TRAUMA, SURGICAL CRITICAL CARE [address] [place] [id number] TO CONTACT PROVIDERS: Critical Care Store Shopper/Trauma Surgeon MD: [id number] Emergency Surgery MD: [id number] Advanced Practice Provider - Trauma: [id number] Advanced Practice Provider - Emergency Surgery [id number] Name: Obie Sims Date of : 1955 Room/Bed: 854/ Date: 02/07/2023 Time: 7:42 PM Hospital Problems: Rib fractures Tertiary Assessment: HPI, PMH, PSH, PE, Medications, Imaging, and Labs personally reviewed. New injuries indentified in this survey: None Plan for new injuries found: None * Angeles Carney DO - 02/07/2023 2:20 PM CDT Images from the original note were not included. TRAUMA PROGRESS NOTE ACUTE CARE SURGERY SERVICE ANGELES BAUTISTAEL , 02/07/2023, 2:20 PM [facility] LEVEL 1 TRAUMA CENTER ACUTE CARE SURGERY SERVICE: EMERGENCY SURGERY, TRAUMA, SURGICAL CRITICAL CARE [address] [place] [address] TO CONTACT PROVIDERS: Trauma Surgeon/Critical Care Store Shopper MD: [id number] Emergency Surgery MD: [id number] Advanced Practice Provider - Trauma: [id number] Advanced Practice Provider - Emergency Surgery [id number] Name: Obie Sims Date of : 1955 Room/Bed: 4/ Date: 02/07/2023 Time: 2:20 PM ASSESSMENT: 67-year-old male who presents with Rib fractures PLAN: Ok for diet Multimodal pain control Plan for transfusion 1 unit prbc as hgb is 6.8 Will obtain post transfusion hgb oob PT/OT eval- recommending swing bed placement Continue to closely monitor Disposition: Social work/case management for discharge/transfer dispostion, Disposition under consideration per patient assessment, Continue to re-assess CHIEF COMPLAINT: Rib fractures [S22.49XA] Fall [W19.XXXA] Scalp laceration [S01.01XA] SUBJECTIVE: Resting comfortably. Still complains of pain around rib fracture area. No acute events overnight. CURRENT MEDS: Scheduled Meds: ??? allopurinol 300 mg Oral Daily ??? aspirin 81 mg Oral Daily ??? atorvastatin 80 mg Oral Nightly at bedtime ??? bacitracin Topical BID ??? carvedilol 3.125 mg Oral BID ??? furosemide 40 mg Oral BID ??? gabapentin 400 mg Oral Daily ??? gabapentin 800 mg Oral nightly ??? insulin lispro 0-8 Units Subcutaneous 4x Daily AC and at bedtime ??? lidocaine 1 patch Transdermal Q24H ??? methocarbamol 500 mg Oral 4x Daily ??? metOLazone 2.5 mg Oral Daily ??? normal saline 3-10 mL Intravenous Q8H ??? pantoprazole EC 40 mg Oral Daily ??? rOPINIRole 4 mg Oral Nightly at bedtime ??? sertraline 50 mg Oral Daily ??? spironolactone 25 mg Oral Daily ??? traZODone 200 mg Oral Nightly at bedtime ??? warfarin (COUMADIN) pharmacy to dose Oral See Admin Instructions ??? warfarin 5 mg Oral Once Continuous Infusions: ??? sodium chloride 250 mL (02/07/23 1124) PRN Meds:acetaminophen OR acetaminophen OR acetaminophen, albuterol sulfate HFA, docusate sodium, HYDROcodone-acetaminophen, morphine, normal saline, senna-docusate REVIEW OF SYSTEMS: Pertinent items are noted in HPI. OBJECTIVE: Vital Signs Last 24 Hours: Temp: [97.2 ??F (36.2 ??C)-98.4 ??F (36.9 ??C)] 97.9 ??F (36.6 ??C) Pulse: [74-89] 81 Resp: [18] 18 BP: (110-119)/(40-67) 116/65 I/O totals for the last 24 hours: Intake/Output Summary (Last 24 hours) at 02/07/2023 1420 Last data filed at 02/07/2023 0924 Gross per 24 hour Intake -- Output 2200 ml Net -2200 ml PHYSICAL EXAM: General appearance: alert and oriented, oriented to person, place, and time, and not in distress Neurological: Grossly normal neurological examination, appropriate, and conversant, Alert and oriented, Following commands Scalp: Skin intact, no lacerations or lesions noted Face: Structural elements stable, facial soft tissue normal, Abrasion/blood over right face/forehead Eyes: Tracking without difficulty, extra-ocular muscles intact, Gross eye exam normal, No visual field deficits reported, Pupil exam equal and reactive to light Ears: Hearing intact, not deaf, No deformity noted in bilateral ears Nose: Nasal septum midline, no rhinorrhea or epistaxis Mouth: Mucous membranes moist, no signficant deformity or malocclusion Neck: Trachea midline, Symmetric, Cervical collar in place Chest: No dyspnea or respiratory distress noted, sufficient air movement, broadly clear Heart: S1 and S2 normal, normal rate, bilateral 2+ pitting edema Abdomen: soft, nontender, nondistended Pelvis: stable pelvis, no signs of structural deformity and Rectal: no lesions or tenderness noted, grossly normal genitourinary exam Back exam: soft tissues broadly normal, no step-offs noted on thoracic or lumbar spine Musculoskeletal: Motor and sensory grossly normal bilaterally Skin: warm and dry, normal coloration and turgor, no suspicious skin lesions noted Psychiatric: Mood and affect appropriate, alert, and oriented ?? LABS: Recent Labs Lab 02/06/23 0156 02/06/23 0552 02/06/23 1036 02/06/23 2042 02/06/23 2351 02/07/23 0538 WBC 10.96* -- -- -- -- 7.55 HGB 7.7* < > 7.0* -- 7.3* 6.8* HCT 26.5* < > 23.7* -- 24.9* 24.2* PLT 166 -- -- -- -- 158 INR 3.5* -- -- -- -- 2.4* PTT 39.3* -- -- -- -- -- NA 132* -- -- -- -- 138 K 4.3 -- -- -- -- 4.2 CL 99 -- -- -- -- 106 CO2 26.2 -- -- -- -- 27.1 AGAP 6.8 -- -- -- -- 4.9* BUN 72* -- -- -- -- 56* CR 2.81* -- -- -- -- 2.08* GLU 173* -- -- -- -- 84 CA 8.8 -- -- -- -- 9.1 TP 7.8 -- -- 7.5 -- -- ALB 3.1* -- -- 3.0* -- -- TBIL 1.2* -- -- 1.2* -- -- ALKP 144* -- -- 130* -- -- AST 25 -- -- 23 -- -- ALT 19 -- -- 19 -- -- MAGNESIUM -- -- -- -- -- 2.4 PHOS -- -- -- -- -- 3.8 < > = values in this interval not displayed. No results found for: PH, PCO2, PO2, P2YBEXMWWSKE, BICARBWB, BASEDEFICIT, BASEEXCESS No results for input(s): ABORH in the last 168 hours. No results for input(s): CKTOTAL in the last 168 hours. CULTURES & SENSITIVITIES: Results for orders placed or performed during the hospital encounter of 02/06/23 (from the past 336hour(s)) CULTURE URINE Collection Time: 02/06/23 6:28 AM Specimen: URINE, CLEAN CATCH Result Value Ref Range SPEC DESCRIPTION URINE CLEAN CATCH SPECIAL REQUESTS NO SPECIAL REQUEST CULTURE RESULT FEW CONTAMINANTS No results found for this visit on 02/06/23 (from the past 336 hour(s)). PATHOLOGY: * Cannot find OR log * * Misael Oh, PharmD - 02/07/2023 9:24 AM CDT Warfarin - Pharmacy Dosing Service Note Obie Sims is a 67-year-old male for which pharmacy has been consulted to dose warfarin for A.fib. Goal INR is 2-3. Warfarin Order Set Activated: Yes Warfarin Start Date: continuation from home Past Medical History: Diagnosis Date Abnormal ankle brachial index (STELLA) Acute on chronic heart failure, unspecified heart failure type ([facility]) Anxiety Aortic valve stenosis Arthritis Asthma, mild persistent 04/06/2021 Atrial fibrillation ([facility]) s/p PVI/[facility] 10/2015 Bilateral leg pain Carotid disease, bilateral ([facility]) CHF (congestive heart failure) ([facility] Claudication ([facility]) COPD (chronic obstructive pulmonary disease) ([facility]) Coronary artery disease Diabetes mellitus, type II ([facility]) Edema 04/19/2018 2+ pitting History of blood transfusion Hyperlipidemia Hypertension LV dysfunction Osteoarthritis PAD (peripheral artery disease) ([facility]) Pneumonia Restless leg syndrome S/P aortic valve replacement with bioprosthetic valve 2013 SOB (shortness of breath) Stroke ([facility]) Varicose veins of bilateral lower extremities with other complications Weight gain with edema Home warfarin dose: 5.5 mg daily per pt Bridging agent: none Vitamin K use: No; (if yes, indicate date, dose, and route) Diet: PO Recent Labs Lab 02/06/23 0156 02/06/23 0552 02/06/23 1036 02/06/23 2042 02/06/23 2351 02/07/23 0538 HGB 7.7* < > 7.0* -- 7.3* 6.8* HCT 26.5* < > 23.7* -- 24.9* 24.2* PLT 166 -- -- -- -- 158 AST 25 -- -- 23 -- -- ALT 19 -- -- 19 -- -- ALKP 144* -- -- 130* -- -- ALB 3.1* -- -- 3.0* -- -- < > = values in this interval not displayed. Date INR Dose Received 02/06 3.5 Hold 02/07 2.4 5 mg Drug interactions: Potential to increase INR: Sertraline ([employer]) Allopurinol ([employer]) Potential to decrease INR: N/A Potential to increase the risk of bleeding: ASA Warfarin Sensitivity: moderate, based on the following risk factors: end state renal disease or Scr> 2.2 and age 66-79. Hgb/Hct today are stable INR today is Supratherapeutic Patient reports last dose 02/05 AM. INR w/ significant fall. OK to resume dosing, since presenting INR a bit high, will slightly reducehome dosing. 5 mg warfarin tonight, f/u INR in the AM Pharmacy will continue to monitor labs and notes daily, adjusting the dose as clinically appropriate. Thank you for the consult. Pharmacy to dose per Dr. Bill OH, PharmD Phone number: [phone] 02/07/2023 9:24 AM * Theresa Berumen, OT - 02/07/2023 8:23 AM CDTSummary: OT evaluation OT Initial Evaluation Discharge Recommendation: Swing bed unit DME equipment recommendation: Activity Recommendation for restaurant area director: up with assist of 1 with a 2ww 02/07/23 0802 Therapy Visit OT Received On 02/07/23 Reason for admission Patient is a 67 year old male brought in by EMS on 02/06 after a fall from standing. He c/o R chest wall pain, R hip pain. Head CT showed decreased density L temporal lobe could be from prior infarct, but acute on chronic infarct could not be excluded. CT chest showing multiple nondisplaced rib fractures. XR R hip was negative for acute fracture....PMH: CAD, COPD, Aortic stenosis, A-fib, DM, Pulmonary HTN, CKD.....Therapy orders: evaluate and treat Ordering Provider Alyssa Bucio PA-C Verified Two Patient Identifiers Yes Patient consents to therapy Yes Acute Inpatient OT Time Calculation OT Start Time 801 OT Stop Time 822 OT Time Calculation (min) 21 min Precautions General Precautions Bed Alarm;Chair Alarm;Fall Risk (IV access and tele) Instructed on Precautions Yes;Verbalizes understanding;Needs reinforcement and education Skin Integrity abrasion to R forehead Subjective Subjective Pt supine in bed upon arrival and agreeable to evaluation Home Living Home Living Comments Pt lives [...] go out of the home. Pt reports 3 falls due to LE weakness/unsteadiness. DME: power recliner, cane, ww, riser. Since last admission patient reports he has been working with home health PT and was about to be discharged from their services secondary to good progress. Does not have 24/[address]. Pain Pain Yes Pain Score 8 Location R ribs and BLEs Activity Tolerance Limiting Factors to Endurance Acute deconditioning;Pain;Weakness;Fatigue Vision - Basic Assessment Current Vision Wears glasses only for reading Vision - Complex Assessment Additional Comments Pt reports no changes in vision since admit Cognition Overall Cognitive Status Impaired Arousal/Alertness Appropriate responses to stimuli Attention Span Attends with cues to redirect Memory Appears intact Orientation Level Oriented X4 Following Commands Follows one step commands with repetition Safety Judgment Decreased awareness of need for assistance (and safety) Awareness of Errors Decreased awareness of errors Deficits Decreased awareness of deficits Problem Solving Assistance required to identify errors made (generate and implement solutions) Motor Planning Appears intact Perseveration Not present Initiation Appears intact Other (Comment) Pt demonstrates decreased insight into current deficits and his ability to functionat home (daughter works) Overall Extremity Assessment Upper Extremity BUE AROM and strength WFLs Sensation Light Touch No apparent deficits ADL Eating/Feeding Assistance Stand by;Sitting in chair Grooming Assistance Stand by;Sitting in chair LE Dressing Assistance Total (uses sock aid at home) Toileting Assistance Moderate Toileting Deficit Perineal hygiene Bed Mobility Supine to Sit Min assist to right Functional Transfers Sit to Stand Min assist Bed to Chair Min assist (with a 2ww) Balance Sitting - Static CGA Sitting - Dynamic CGA Standing - Static Min Assist;Support of both upper extremities Standing - Dynamic Min Assist;Support of both upper extremities Assessment Occupational Profile and History Complexity Moderate (Expanded) Performance Skills Deficits Bathing/showering;Dressing;Education;Functional mobility;Personal device care;Personal hygiene and grooming;Toileting Performance Deficit Level High (5 or more deficits) Clinical Decision Making Moderate (min/mod modifications) Complexity Level of Evaluation Moderate Prognosis Good OT Assess/Eval Other (Comment) Pt reports that at baseline he is able to assist with self care and completes mobility with a walker. Currently the patient presents with decreased independence with self care and mobility due pain, weakness, acute on chronic deconditioning, decreased balance, and cognitive deficits. They would benefit from continued OT services while here and then at a swing bed tomaximize their independence prior to returning home as he does not have needed assist at home. Recommendation OT Recommendation Swing bed unit Plan OT Treatment/Intervention Self-care training;Therapeutic exercises;Therapeutic activities;Cognitiveskills development;Safety;Functional activity;Patient/family training OT Frequency 5 times/week OT - Next Appointment 02/07/23 If this is the last treatment note, it will serve as the discharge summary Yes End of Session End of Session Safety Chair alarm set/activated;Call light within reach;Nursing aware of session;Transfer status education Goals: The below POC to be followed until 02/20/23 at that time POC will be re-assessed to ensure patient ismaking appropriate progression. Pt will complete upper body dressing with Independent sitting EOB or in chair to increase safety and independence with ADLs. Pt will complete lower dressing with Modified [place] sitting EOB or in chair to increase safety and independence with ADLs. Pt will complete all grooming and self-feeding with Modified [place] to increased safety and independence with ADLs. Pt will complete ADLs at sink with Modified [place] to increase independence with ADLs. Pt will complete toileting hygiene and clothing management with Modified [place] to increase safety and independence with ADLs. Pt to complete upper body bathing with SBA seated in chair/EOB to increase independence with ADLs. Pt to complete lower body bathing with Minimal assistance seated in chair/EOB to increase independence with ADLs. Pt will complete bed mobility with Modified [place] with HOB flat to increase safety and independence with functional transfers. Pt will complete transfers all surfaces to/from all surfaces with Modified [place] using wheeled walker to increase functional mobility and transfers. Pt will participate within skilled therapy services for 20-30 minutes with 1-2 rest breaks to increase independence with ADLs and functional transfers. Pt will increase dynamic balance sitting on soft surface to complete ADLs with Independent for 10-20 minutes to increase safety and independence with ADLs and functional transfers. Pt will increase dynamic standing balance standing at sink/dressing completing ADLs with Modified [place] with wheeled walker for 5-10 minutes to increase safety and independence with ADLs and functional transfers. Education: Primary Learners Name: Obie Sims Primary Language of learner: Indian Patient was educated on transfers ADLs balance bed mobility equipment therapy plan gait safety. Education was completed one to one verbal hands-on this date. Preference of learning new concepts one to one verbal hands-on Barriers to education this date were fatigue cognition physical impairment. Response to education this date demos with verbal cues needs reinforcement needs follow up needs assistance. * Kevin Adler PT - 02/07/2023 8:02 AM CDTSummary: PT Eval PT Initial Evaluation Discharge Recommendation: Swing bed unit Activity Recommendation for restaurant area director: Transfer with 1, 2wRENETTA pena 02/07/23 0600 Therapy Visit Ordering Provider Alyssa Bucio PA-C PT Received On 02/07/23 Subjective RN ok'd therapy visit. Patient sitting upright in bed upon arrival, agreeable to therapyevaluation. Reason for admission Patient is a 67 year old male brought in by EMS on 02/06 after a fall from standing. He c/o R chest wall pain, R hip pain. Head CT showed decreased density L temporal lobe could be from prior infarct, but acute on chronic infarct could not be excluded. CT chest showing multiple nondisplaced rib fractures. XR R hip was negative for acute fracture....PMH: CAD, COPD, Aortic stenosis, A-fib, DM, Pulmonary HTN, CKD.....Therapy orders: evaluate and treat Verified Two Patient Identifiers Yes Patient consents to therapy Yes Acute Inpatient PT Time Calculation PT Start Time 801 PT Stop Time 824 PT Time Calculation (min) 23 min Precautions General Precautions Fall Risk;Chair Alarm Instructed on Precautions Yes;Verbalizes understanding Other IV access, Tele Home Living Home Living Comments Pt lives [...] go out of the home. Pt reports 3 falls due to LE weakness/unsteadiness. DME: power recliner, cane, ww, riser. Since last admission patient reports he has been working with home health PT and was about to be discharged from their services secondary to good progress. Does not have 24/[address] Pain Pain Yes Pain Score 8 Location B legs/ Ribs Activity Tolerance Endurance Quality Fair Limiting Factors to Endurance Acute deconditioning;Pain;Weakness Cognition Overall Cognitive Status WFL Arousal/Alertness Appropriate responses to stimuli Attention Span Appears intact Memory Appears intact Orientation Level Oriented X4 Following Commands Follows one step commands without difficulty Safety Judgment Decreased awareness of need for assistance Awareness of Errors Assistance required to identify errors made Deficits Decreased awareness of deficits Problem Solving Assistance required to identify errors made Comments Decreased insight into current deficits. Feels he is safe to return home and appears resistant to short term rehab placement. Motor Planning Appears intact Perseveration Not present Initiation Appears intact Sensation Light Touch No apparent deficits Proprioception Proprioception No apparent deficits Overall Extremity Assessment Lower Extremity BLE AROM WFL. Generalized weakness noted throughout BLEs Bed Mobility Supine to Sit Min assist to right Other (Comment) Assist for trunk, bed pad used to manipulate hips TRANSFERS Sit to Stand Min assist Bed to Chair Min assist Other (Comment) Requires cues to advance BLEs Balance Sitting - Static SBA Sitting - Dynamic CGA Standing - Static Min Assist;Support of both upper extremities Standing - Dynamic Min Assist;Support of both upper extremities Assessment Personal Factors/Comorbidities Impacting Care 3-4 personal factors/comorbidities Examination of Body Systems Moderate (3 or more Elements) Objectives of Body Systems Impaired bed mobility;Impaired transfers;Impaired ambulation;Impaired balance;Decreased LE strength;Decreased safe judgement;Decreased endurance;Pain with mobility Clinical Presentation of Patient Evolving and changing characteristics Complexity Level of Evaluation Moderate Prognosis Good PT Assess/Eval Other (Comment) Patient is a 67 year old male who was brought into the ED following a ground level fall at home. Patient is currently demonstrating impaired bed mobility/transfers, decreased lower extremity strength, impaired balance, poor safety awareness, pain with mobility, and dec reased endurance. Patient would benefit from short term rehab placement at d/c as patient does not have 24/[address] at home and is an increased fall risk. Patient/Family Training Other (Comment) Patient educated on therapy d/c recommendations. Appears to demonstrate a lack of insight into current deficits. Resistant to short term rehab placement. Recommendation PT Recommendation Swing bed unit Plan PT Treatments/Interventions Gait Training;Therapeutic Exercises;Therapeutic Activities;Neuromuscular re-education PT Frequency 5 times/week PT - Next Appointment 02/07/23 If this is the last treatment note,it will serve as the discharge summary Yes End of Session End of Session Safety Chair alarm set/activated;Call light within reach;Nursing aware of session;Transfer status education The below POC to be followed until 02/21/23 at that time POC will be re-assessed to ensure patient ismaking appropriate progression. Pt. will be able to perform supine to/from sitting at EOB with SBA to improve mobility. Pt. will be able to perform sit to/from standing with SBA using wheeled walker to improve independence. Pt. will be able to ambulate 125 feet with SBA using wheeled walker to help improve strength and functional independence. Pt. will be able to maintain static sitting balance for less than 5 minutes with Pima to improve independence. Pt. will be able to maintain dynamic sitting balance on soft surface with Modified Pima to improve functional mobility. Pt. will be able to maintain static standing balance less than 5 minutes with SBA using wheeled walker to improve independence. Pt. will be able to maintain dynamic standing balance during side-stepping L/R and marching with SBA using wheeled walker to improve functional mobility. Pt. will be able to ascend/descend 2 steps with SBA using handrail(s) to increase strength and to safely access home at D/C. Education: Primary Learners Name: Obie Sims Primary Language of learner: Indian Patient was educated on precautions exercises transfers ADLs balance bed mobility equipment therapy plan gait safety. Education was completed verbal hands-on demonstration this date. Preference of learning new concepts verbal hands-on demonstration Barriers to education this date were pain fatigue. Response to education this date needs follow up needs assistance. * Denisha Arenas, PharmD - 02/06/2023 7:56 PM CDT Warfarin - Pharmacy Dosing Service [...] Arthritis Asthma, mild persistent 04/06/2021 Atrial fibrillation ([facility]/HCC) s/p PVI/[facility] 10/2015 Bilateral leg pain Carotid [...] with edema Home warfarin dose: 5.5 mg daily per pt Bridging agent: none Vitamin K use: No; (if yes, indicate date, dose, and route) Diet: PO Recent Labs Lab 02/06/23 0156 02/06/23 0552 02/06/23 1036 HGB 7.7* 7.3* 7.0* HCT 26.5* 24.9* 23.7* PLT 166 -- -- AST 25 -- -- ALT 19 -- -- ALKP 144* -- -- ALB 3.1* -- -- Date INR Dose Received 02/06 3.5 Hold Drug interactions: Potential to increase INR: Sertraline (K [employer]) Allopurinol (K [employer]) Potential to decrease INR: N/A Potential to increase the risk of bleeding: ASA Warfarin Sensitivity: moderate, based on the following risk factors: end state renal disease or Scr> 2.2 and age 66-79. Hgb/Hct today are stable INR today is Supratherapeutic Patient reports last dose 6/16 AM. The plan is to Hold a dose once tonight and recheck an INR in the morning to assist with subsequentdosing. Pharmacy will continue to monitor labs and notes daily, adjusting the dose as clinically appropriate. Thank you for the consult. Pharmacy to dose per Dr. Bill ARENAS, PharmD Phone number: [phone] 02/06/2023 7:56 PM * Veronique Oropeza RN - 02/06/2023 12:03 PM CDT Problem: Pain Goal: Patient's pain/discomfort is manageable Description: Assess and monitor patient's pain using appropriate pain scale. Collaborate with interdisciplinary team and initiate plan and interventions as ordered. Re-assess patient's pain level 30 - 60 minutes after pain management intervention. Outcome: Progressing Problem: Safety Goal: Patient will be injury free during hospitalization Description: Assess and monitor vitals signs, neurological status including level of consciousness and orientation. Assess patient's risk for falls and implement fall prevention plan of care and interventions per hospital policy. Ensure arm band on, uncluttered walking paths in room, adequate room lighting, call light and overbed table within reach, bed in low position, wheels locked, side rails up per policy, and non-skid footwear provided. Outcome: Progressing Problem: Daily Care Goal: Daily care needs are met Description: Assess and monitor ability to perform self care and identify potential discharge needs. Outcome: Progressing Problem: Psychosocial Needs Goal: Demonstrates ability to cope with hospitalization/illness Description: Assess and monitor patients ability to cope with his/her illness. Outcome: Progressing Goal: Collaborate with patient/family/caregiver to identify patient specific goals for this hospitalization Outcome: Progressing Problem: Discharge Barriers Goal: Patient's discharge needs are met Description: Collaborate with interdisciplinary team and initiate plans and interventions as needed. Outcome: Progressing Problem: Reduced risk for falls/injury Goal: Reduced Risk for Falls/Injury Outcome: Progressing Goal: Reduced Risk of Confusion (Acute vs Chronic) Outcome: Progressing Goal: Reduced Risk of Symptomatic Depression Outcome: Progressing Goal: Reduced Risk of Altered Elimination Outcome: Progressing Goal: Reduced Risk of Dizziness/Vertigo/Balance Outcome: Progressing Goal: Reduced Risk of Polypharmacy Outcome: Progressing Problem: Discharge Planning Goal: Knowledge of discharge instructions Outcome: Progressing Problem: Pain control/comfort Goal: Promote pain control/comfort Outcome: Progressing Problem: Skin integrity, Impaired-wound Goal: Absence of new skin breakdown Outcome: Progressing Goal: Evidence of wound healing Outcome: Progressing Problem: Skin integrity, Impaired-pressure injury/ulcer Goal: Absence of new skin breakdown Outcome: Progressing Goal: Evidence of pressure injury/ulcer healing Outcome: Progressing Problem: Skin integrity, at risk Goal: Absence of new skin breakdown Outcome: Progressing Problem: Moisture associated skin impairment Goal: Reduce moisture exposure Outcome: Progressing Goal: Evidence of wound healing Outcome: Progressing Goal: Evidence of pressure injury/ulcer healing Outcome: Progressing Goal: Absence of new skin breakdown Outcome: Progressing Problem: Pain - Acute Goal: Achieve acceptable pain level Outcome: Progressing documented in this encounter H&P Notes * Alyssa Bucio PA-C - 02/06/2023 4:58 AM CDT Images from the original note were not included. TRAUMA HISTORY & PHYSICAL ACUTE CARE SURGERY SERVICE ALYSSA BUCIO PA-C, 02/06/2023, 5:13 AM [facility] LEVEL 1 TRAUMA CENTER ACUTE CARE SURGERY SERVICE: EMERGENCY SURGERY, TRAUMA, SURGICAL CRITICAL CARE [address] [place], [place] [id number] TO CONTACT PROVIDERS: Critical Care Store Shopper/Trauma Surgeon MD: [id number] Emergency Surgery MD: [id number] Advanced Practice Provider - Trauma: [id number] Advanced Practice Provider - Emergency Surgery [id number] Name: Obie Sims Date of : 1955 Room/Bed: EXAM N/N Date: 02/06/2023 Time: 5:13 AM CHIEF COMPLAINT: Consultation (Consulting Physician: No admitting provider for patient encounter.) for Trauma. Mechanism of Injury: Fall. HOSPITAL DIAGNOSES: Rib fractures HISTORY OF PRESENT ILLNESS: Obie Sims is a 67-year-old male brought in by EMS, ground with a history of CAD, COPD, aortic stenosis s/p bioprosthetic 2013 with CHF, afib on warfarin, DM, pulmonaryhypertension, and CKD. The patient was involved in a fall from standing, without loss of consciousness. Per report, Obie Sims was getting up to use the restroom when he lost his footing and fell and struck his head on the wall, denies LOC. The patient described pain as located in the right chest wall and right hip, continuous, dull, non-radiating, rated 6/10. Patient denies dizziness or vertigo prior to the fall. Last took his warfarin yesterday morning. Denies MITCHELL, vision changes, hearing changes, CP, SOB, abdominal pain, N/V/C/D. Denies numbness/tinglingin all extremities. Denies loss of bowel or bladder function. PRIMARY SURVEY Airway: Airway Patent Breathing: Clear to auscultation bilaterally; Supplemental Oxygen: Yes, administered at 2 lpm via nasal cannula Circulation: radial=2+/4, femoral=2+/4, popliteal=2+/4, dorsalis pedis=2+/4, bilaterally. Disability: PERRL; Arrival GCS: 15 Exposure: Patient was completley exposed and covered with warm blankets PAST MEDICAL HISTORY: Past Medical History: Diagnosis Date Abnormal ankle brachial index (STELLA) Acute on chronic heart failure, unspecified heart failure type (CMS/HCC) Anxiety Aortic valve stenosis Arthritis Asthma, mild persistent 04/06/2021 Atrial fibrillation (CMS/HCC) s/p PVI/[facility] 10/2015 Bilateral leg pain Carotid disease, bilateral (CMS/HCC) CHF (congestive heart failure) ([facility]/HCC) Claudication ([facility]/HCC) COPD (chronic obstructive pulmonary disease) ([facility]/HCC) Coronary artery disease Diabetes mellitus, type II ([facility]/HCC) Edema 04/19/2018 2+ pitting History of blood transfusion Hyperlipidemia Hypertension LV dysfunction Osteoarthritis PAD (peripheral artery disease) (CMS/HCC) Pneumonia Restless leg syndrome S/P aortic valve replacement with bioprosthetic valve 2013 1999, 2013 SOB (shortness of breath) Stroke ([facility]) Varicose veins of bilateral lower extremities with other complications Weight gain with edema PAST SURGICAL HISTORY: Past Surgical History: Procedure Laterality Date APPENDECTOMY CARDIAC VALVE REPLACEMENT 1999 CARDIAC VALVE REPLACEMENT 2013 CARDIOVERSION EXTERNAL 10/01/2015 CARDIOVERSION EXTERNAL 04/14/2012 COLONOSCOPY N/A 03/18/2021 COLONOSCOPY (Incomplete) performed by Kilo Navarro MD at [facility] OR COLONOSCOPY N/A 01/27/2022 COLONOSCOPY WITH COLD SNARE POLYPECTOMY performed by Kilo Navarro MD at [facility] OR HIP ARTHROPLASTY Left KNEE ARTHROPLASTY Bilateral REPAIR ROTATOR CUFF W/ OR W/O ACROMIOPLASTY Left USE NEMO+CARDIOVERSION 03/24/2016 XA A-FIB ABLATION 10/23/2015 PVI/[facility] ALLERGIES: Review of patient's allergies indicates: No Known Allergies HOME MEDICATIONS: Prior to Admission medications Medication Sig Start Date End Date Taking? Authorizing Provider albuterol sulfate HFA 108 (90 Base) MCG/ACT inhaler Inhale 2 puffs into the lungs every 4 (four) hours as needed. 11/14/15 [facility] allopurinol 300 MG tablet Take 1 tablet (300 mg total) by mouth daily. 02/17/19 [facility] amLODIPine (NORVASC) 2.5 MG tablet Take 1 tablet (2.5 mg total) by mouth daily. Default History Genericprovider aspirin 81 MG chewable tablet Chew 1 tablet (81 mg total) by mouth daily. 04/18/14 [facility] atorvastatin 80 MG tablet Take 1 tablet (80 mg total) by mouth nightly at bedtime. 12/31/16 [facility] camphor-menthol (SARNA) lotion Apply topically 2 (two) times a day. Default History Genericprovider carvedilol (COREG) 3.125 MG tablet Take 1 tablet (3.125 mg total) by mouth 2 (two) times daily. 10/09/22 Default History Genericprovider docusate sodium 100 MG capsule Take 1 capsule (100 mg total) by mouth as needed for Constipation. [facility] furosemide (LASIX) 80 MG tablet Take 1 tablet (80 mg total) by mouth daily for 30 days. 01/04/23 02/03/23 Juanpablo Herman MD gabapentin (NEURONTIN) 400 MG capsule Take 1 capsule (400 mg total) by mouth. 1 tablet in the morning and 2 tablets at night 12/14/22 Default History Genericprovider glipiZIDE XL (GLUCOTROL XL) 5 MG 24 hr tablet 2 tablets (10 mg total). 1-2 tablets daily in am 09/29/22 Default History Genericprovider HYDROcodone-acetaminophen (NORCO) 7.5-325 MG tablet Take 1 tablet by mouth 2 (two) times daily as needed. Indications: Chronic Pain 01/04/23 Juanpablo Herman MD hydrOXYzine (ATARAX) 50 MG tablet Take 1 tablet (50 mg total) by mouth 3 (three) times daily. As needed 10/09/22 Default History Genericprovider insulin detemir (LEVEMIR FLEXPEN) 100 UNIT/ML PEN Inject into the skin as needed (only uses inslin if he needs it he states). Default History Genericprovider JARDIANCE 25 MG tablet Take 1 tablet (25 mg total) by mouth daily. 10/31/22 Default History Genericprovider losartan (COZAAR) 25 MG tablet Take 1 tablet (25 mg total) by mouth daily. 01/13/23 Default History Genericprovider metFORMIN (GLUCOPHAGE) 500 MG tablet Take 1 tablet (500 mg total) by mouth 2 (two) times daily withmeals. Default History Genericprovider methocarbamol (ROBAXIN) 500 MG tablet Take 1 tablet (500 mg total) by mouth 3 (three) times daily. 11/20/22 Default History Genericprovider metOLazone (ZAROXOLYN) 2.5 MG tablet Take 1 tablet (2.5 mg total) by mouth daily. Default History Genericprovider mupirocin (BACTROBAN) 2 % ointment Apply 1 Application topically 2 (two) times daily. 12/14/22 Default History Genericprovider pantoprazole EC 40 MG tablet Take 1 tablet (40 mg total) by mouth daily. [facility] potassium chloride CR (KLOR-CON M) 20 MEQ tablet Take 1 tablet (20 mEq total) by mouth daily. Default History Genericprovider rOPINIRole (REQUIP) 4 MG tablet Take 1 tablet (4 mg total) by mouth nightly at bedtime. 10/17/22 Default History Genericprovider sertraline 50 MG tablet Take 1 tablet (50 mg total) by mouth daily. 10/03/21 [facility] spironolactone (ALDACTONE) 25 MG tablet Take 1 tablet (25 mg total) by mouth daily. 09/05/22 DefaultHistory Genericprovider traZODone (DESYREL) 100 MG tablet Take 2 tablets (200 mg total) by mouth nightly at bedtime. 03/24/22[facility] TRELEGY ELLIPTA 100-62.5-25 MCG/ACT AEROSOL POWDER, BREATH ACTIVATED Inhale into the lungs daily. 12/23/22 Default History Genericprovider warfarin (COUMADIN) 1 MG tablet 2 tablets (2 mg total) daily. As directed 10/22/22 Default History Genericprovider warfarin (COUMADIN) 5 MG tablet daily. As directed 05/14/22 Default History Genericprovider SOCIAL HISTORY: Social History Tobacco Use Smoking status: Former Smokeless tobacco: Former Types: Chew Substance Use Topics Alcohol use: Yes Comment: 6 beers per week FAMILY HISTORY: Family history was reviewed as listed below. Family History Problem Relation Name Age of Onset TB Mother REVIEW OF SYSTEMS: Pertinent items are noted in HPI. A 12 point comprehensive review of systems was otherwise negative. PHYSICAL EXAMINATION: Filed Vitals: 02/06/23 0147 02/06/23 0219 BP: 111/74 Pulse: 91 Resp: 20 Temp: 98.1 ??F (36.7 ??C) TempSrc: Oral SpO2: 92% (!) 88% Weight: 98.9 kg (218 lb) Height: 5' 6 (1.676 m) Glascow Coma Score: Eye: E4: Opens spontaneously Verbal: V5: Orientated Motor: M6: Obeys commands Total: 15 General appearance: alert and oriented, oriented to person, place, and time, and not in distress Neurological: Grossly normal neurological examination, appropriate, and conversant, Alert and oriented, Following commands Scalp: Skin intact, no lacerations or lesions noted Face: Structural elements stable, facial soft tissue normal, Abrasion/blood over right face/forehead Eyes: Tracking without difficulty, extra-ocular muscles intact, Gross eye exam normal, No visual field deficits reported, Pupil exam equal and reactive to light Ears: Hearing intact, not deaf, No deformity noted in bilateral ears Nose: Nasal septum midline, no rhinorrhea or epistaxis Mouth: Mucous membranes moist, no signficant deformity or malocclusion Neck: Trachea midline, Symmetric, Cervical collar in place Chest: No dyspnea or respiratory distress noted, sufficient air movement, broadly clear Heart: S1 and S2 normal, normal rate, bilateral 2+ pitting edema Abdomen: soft, nontender, nondistended Pelvis: stable pelvis, no signs of structural deformity and Rectal: no lesions or tenderness noted, grossly normal genitourinary exam Back exam: soft tissues broadly normal, no step-offs noted on thoracic or lumbar spine Musculoskeletal: Motor and sensory grossly normal bilaterally Skin: warm and dry, normal coloration and turgor, no suspicious skin lesions noted Psychiatric: Mood and affect appropriate, alert, and oriented LABORATORY RESULTS: Recent Labs Lab 02/06/23 0156 WBC 10.96* HGB 7.7* HCT 26.5* PLT 166 INR 3.5* PTT 39.3* NA 132* K 4.3 CL 99 CO2 26.2 AGAP 6.8 BUN 72* CR 2.81* GLU 173* CA 8.8 TP 7.8 ALB 3.1* TBIL 1.2* ALKP 144* AST 25 ALT 19 No results found for: PH, PCO2, PO2, I2XMFBOTBGOT, BICARBWB, BASEDEFICIT, BASEEXCESS No results for input(s): ABORH in the last 168 hours. No results for input(s): CKTOTAL in the last 168 hours. IMAGING: Radiology Results (Last 30 days) 02/06/23 0326 XR HIP ELZA 2V+PELVIS Final result Impression: Impression: 1. Well seated left hip arthroplasty with marked heterotopic bone formation surrounding the left arthroplasty. 2. Right hip CAM-type femoral acetabular impingement. Moderate to advanced arthritis right hip. Referred By: Interpreted By: Luis Burger MD, 02/06/2023 3:32 AM 02/06/[address] HEAD WO CON Final result Impression: Impression: 1. Mild atrophy and white matter disease. 2. Decreased density in the left temporal lobe could be from prior infarct, but acute on chronic infarct cannot be excluded. Would consider MRI brain for further workup. Referred By: Interpreted By: Luis Burger MD, 02/06/2023 3:11 AM 02/06/[address] CERV SPINE WO CON Final result Impression: Impression: 1. No acute osseous abnormality. 2. Mild facet arthropathy. Bulky anterior degenerative spondylosis. Referred By: Interpreted By: Luis Burger MD, 02/06/2023 3:14 AM 02/06/[address] CHEST+ABD+PEL WO CON Final result Impression: IMPRESSION: CHEST: 1. Nondisplaced right rib fractures [...] By: Phill Currie MD, 02/06/2023 3:17 AM 01/26/23 1813 XR CHEST PORTABLE Final result Impression: IMPRESSION: 1. Stable cardiomegaly. 2. No radiographic evidence of acute cardiac pulmonary process. 3. Stable chest. Referred By: Interpreted By: Precious Nelson DO, 01/26/2023 6:12 PM ASSESSMENT: Obie Sims is a 67-year-old male who presented as a trauma involved in a Fall. INJURY SUMMARY: Rib fractures Head: None Cervical Spine: None Thoracic/Lumbar Spine: None Chest: Anterior right 5/6 and lateral 7 rib buckling. Old rib fractures are seen on the right and left. Abdomen/Pelvis: ascites Extremities: None Skin/Soft tissue: None Incidental findings on imaging: Bilateral pulmonary nodules Right adrenal mass Cholelithiasis PLAN: Patient Disposition: Medical floor Begin diet and advance as tolerated Maintenance intravenous fluids Pain control as needed, minimize over-sedation Bowel regimen Anti-emetics Incentive spirometry OOB, ambulate with assistance as tolerated Sequential compression device to lower extremities PT and OT Repeat labs tomorrow Repeat CXR for noon today MRI brain per radiology recommendations Consider hospital medicine consult for medical management Code: Full Code Consultations: None Critical Care: The patient was managed without critical care intervention. Cosigned by Diamond Ace MD at 02/06/2023 7:56 AM CDT Associated attestation - Diamond Ace MD - 02/06/2023 7:56 AM CDT I, DIAMOND ACE MD, participated in the care of this patient today and discussed the plan ofcare with CAREY Orr, who shared in this visit. I have reviewed the CAREY's documentation andagree with the findings except as I have documented. I personally spent 35 minutes, caring for thispatient. -Admit to surgical floor for pain management and pulmonary toilet -CT head and C spine negative -CT shows nondisplaced right rib fx 5-7. No hemothorax. -MMPR -MRI brain -PT/OT -Repeat CXR at 12:00 PM today DIAMOND ACE MD documented in this encounter Consult Notes * Jeff Delgado MD - 02/08/2023 4:58 PM CDT Vascular Medicine Consult Note ID: Obie Sims is a 67-year-old male : 1955 MEGAN INFANTE MD LOS: 2 days CC: Feels tired. History of Present Illness: 67 year-old male who is admitted to the hospital with falls and rib fracture. I been consulted regarding lower extremity wounds with edema. Patient is known to me from the clinic with knownvenous insufficiency. has been admitted to the hospital recently with congestive heart failure and has developed bilateral lower extremity superficial ulcerations. Patient seen by wound team today dressing applied and Tubigrip's have been applied. Patient noticed sitting in the chair. ASSESSMENT AND PLAN: 1. Chronic venous insufficiency with CEAP disease. Main issue is management of edema. ABIs in 2021 noted to be noncompressible with toe pressure more than 100 mmHg bilaterally. Would recommend multilayer compression, leg elevation and calf pump exercises but think he would be gentle diuresis. Will discuss with wound team and start short stretch bandages with Tubigrip. 2. Congestive heart failure with pulmonary hypertension. Patient seems has diastolic and systolic is about failure follows with Sharmila Davis and Dr. Pandey as outpatient. He would be diuresing andeuvolemia. 3. Atrial fibrillation. Patient on chronic Coumadin. 4. HTN and CHF. Defer to Dr. Pandey. 5. COPD. Past Medical History: Diagnosis Date Abnormal ankle brachial index (STELLA) Acute on chronic heart failure, unspecified heart failure type ([facility]) Anxiety Aortic valve stenosis Arthritis Asthma, mild persistent 04/06/2021 Atrial fibrillation ([facility]/HCC) s/p PVI/[facility] 10/2015 Bilateral leg pain Carotid disease, bilateral ([facility]/HCC) CHF (congestive heart failure) ([facility]) Claudication ([facility]/HCC) COPD (chronic obstructive pulmonary disease) ([facility]) Coronary artery disease Diabetes mellitus, type II ([facility]) Edema 04/19/2018 2+ pitting History of blood transfusion Hyperlipidemia Hypertension LV dysfunction Osteoarthritis PAD (peripheral artery disease) ([facility]) Pneumonia Restless leg syndrome S/P aortic valve replacement with bioprosthetic valve 2013 SOB (shortness of breath) Stroke ([facility]/HCC) Varicose veins of bilateral lower extremities with other complications Weight gain with edema Past Surgical History: Procedure Laterality Date APPENDECTOMY CARDIAC VALVE REPLACEMENT 2000 CARDIAC VALVE REPLACEMENT 2014 CARDIOVERSION EXTERNAL 10/01/2015 CARDIOVERSION EXTERNAL 04/14/2012 COLONOSCOPY N/A 03/18/2021 COLONOSCOPY (Incomplete) performed by Kilo Navarro MD at [facility] OR COLONOSCOPY N/A 01/27/2022 COLONOSCOPY WITH COLD SNARE POLYPECTOMY performed by Kilo Navarro MD at [facility] OR HIP ARTHROPLASTY Left KNEE ARTHROPLASTY [...] mg total) by mouth nightly at bedtime. carvedilol (COREG) 3.125 MG tablet Take 1 tablet (3.125 mg total) by mouth 2 (two) times daily. furosemide (LASIX) 40 MG tablet Take 1 tablet (40 mg total) by mouth 2 (two) times daily. gabapentin (NEURONTIN) 400 MG capsule Take 1 capsule (400 mg total) by mouth. 1 tablet in the morning and 2 tablets at night hydrOXYzine (ATARAX) 50 MG tablet Take 1 tablet (50 mg total) by mouth 3 (three) times daily. As needed JARDIANCE 25 MG tablet Take 1 tablet (25 mg total) by mouth daily. losartan (COZAAR) 25 MG tablet Take 1 tablet (25 mg total) by mouth daily. metFORMIN (GLUCOPHAGE) 500 MG tablet Take 1 tablet (500 mg total) by mouth 2 (two) times daily withmeals. pantoprazole EC 40 MG tablet Take 1 [...] mg total) by mouth nightly at bedtime. warfarin (COUMADIN) 1 MG tablet 2 tablets (2 mg total) daily. As directed warfarin (COUMADIN) 5 MG tablet daily. As directed amLODIPine (NORVASC) 2.5 MG tablet Take 1 tablet (2.5 mg total) by mouth daily. camphor-menthol (SARNA) lotion Apply topically 2 (two) times a day. docusate sodium 100 MG capsule Take 1 capsule (100 mg total) by mouth as needed for Constipation. glipiZIDE XL (GLUCOTROL XL) 5 MG 24 hr tablet 2 tablets (10 mg total). 1-2 tablets daily in am HYDROcodone-acetaminophen (NORCO) 7.5-325 MG tablet Take 1 tablet by mouth every 8 (eight) hours asneeded for Pain. insulin detemir (LEVEMIR FLEXPEN) 100 UNIT/ML PEN Inject into the skin as needed (only uses inslin if he needs it he states). methocarbamol (ROBAXIN) 500 MG tablet Take 1 tablet (500 mg total) by mouth 3 (three) times daily. metOLazone (ZAROXOLYN) 2.5 MG tablet Take 1 tablet (2.5 mg total) by mouth daily. mupirocin (BACTROBAN) 2 % ointment Apply 1 Application topically 2 (two) times daily. TRELEGY ELLIPTA 100-62.5-25 MCG/ACT AEROSOL POWDER, BREATH ACTIVATED Inhale 1 puff into the lungs daily. Review of patient's allergies indicates: No Known Allergies Social History Tobacco Use Smoking status: Former Smokeless tobacco: Former Types: Chew Substance Use Topics Alcohol use: Yes Comment: 6 beers per week Family History Problem Relation Name Age of Onset TB Mother Review of Systems Constitutional: Positive for weakness. Negative for recent unintentional weight gain and recent unintentional weight loss. HENT: Negative for new or significant hearing loss and headaches. Eyes: Negative for blurred vision and double vision. Respiratory: Negative for cough and wheezing. Cardiovascular: Positive for leg swelling and slow healing cuts/wounds.Negative for chest pain and palpitations. Gastrointestinal: Negative for heartburn and nausea. Genitourinary: Negative for dysuria and hematuria. Musculoskeletal: Negative for myalgias. Skin: Negative for rash. Neurological: Negative for dizziness. Endo/Heme/Allergies: Negative for new or significant bruising/bleeding. Psychiatric/Behavioral: Negative for depression. Medications: Scheduled Meds: allopurinol 300 mg Oral Daily aspirin 81 mg Oral Daily atorvastatin 80 mg Oral Nightly at bedtime bacitracin Topical BID carvedilol 3.125 mg Oral BID fluticasone-salmeterol 2 puff Inhalation 2 times daily furosemide 40 mg Oral BID gabapentin 400 mg Oral Daily gabapentin 800 mg Oral nightly insulin glargine 15 Units Subcutaneous Nightly at bedtime insulin lispro 0-12 Units Subcutaneous 4x Daily AC and at bedtime insulin lispro 5 Units Subcutaneous TID WC lidocaine 1 patch Transdermal Q24H methocarbamol 500 mg Oral 4x Daily metOLazone 2.5 mg Oral Daily normal saline 3-10 mL Intravenous Q8H pantoprazole EC 40 mg Oral Daily rOPINIRole 4 mg Oral Nightly at bedtime sertraline 50 mg Oral Daily spironolactone 25 mg Oral Daily tiotropium 2 puff Inhalation Daily traZODone 200 mg Oral Nightly at bedtime warfarin (COUMADIN) pharmacy to dose Oral See Admin Instructions Continuous Infusions: PRN Meds: acetaminophen OR acetaminophen OR acetaminophen, albuterol sulfate HFA, docusate sodium, HYDROcodone-acetaminophen, HYDROcodone- acetaminophen, normal saline, senna-docusate OBJECTIVE Today's Weight: Last Recorded Weight 02/06/23 0147 Weight: 98.9 kg (218 lb) Weight change in the last 24 hours: an appropriate measurement is not found Vital signs in the last 24 hours: Temp: [97.5 ??F (36.4 ??C)-98.2 ??F (36.8 ??C)] 98.2 ??F (36.8 ??C) Pulse: [74-90] 75 BP: (117-130)/(41-72) 120/59 Physical Exam Constitutional: General: He is not in acute distress. Appearance: Normal appearance. He is well-developed. HENT: Nose: No mucosal edema. Mouth/Throat: Pharynx: No oropharyngeal exudate. Neck: Vascular: No JVD. Cardiovascular: Rate and Rhythm: Normal rate and regular rhythm. Chest Wall: PMI is not displaced. Pulses: Carotid pulses are 2+ on the right side and 2+ on the left side. Radial pulses are 2+ on the right side and 2+ on the left side. Femoral pulses are 2+ on the right side and 2+ on the left side. Popliteal pulses are 2+ on the right side and 2+ on the left side. Dorsalis pedis pulses are 2+ on the right side and 2+ on the left side. Posterior tibial pulses are 2+ on the right side and 2+ on the left side. Heart sounds: S1 normal and S2 normal. No murmur heard. No gallop. Pulmonary: Effort: Pulmonary effort is normal. No respiratory distress. Breath sounds: Normal breath sounds. Abdominal: General: There is no abdominal bruit. Palpations: There is no mass. Tenderness: There is no abdominal tenderness. Musculoskeletal: General: Swelling present. No deformity. Normal range of motion. Cervical back: Neck supple. Skin: General: Skin is warm and dry. Comments: Bilateral extremity 1+ edema with edema extending to thighs with small superficial ulceration noted in bilateral anterior shins. Venous stasis/venous congestion with erythema noted in bilateral lower extremities. Neurological: Mental Status: He is alert and oriented to person, place, and time. Psychiatric: Behavior: Behavior normal. Thought Content: Thought content normal. Labs and Cultures: Lab Results Component Value Date NA 133 (L) 02/08/2023 K 3.8 02/08/2023 CL 98 02/08/2023 CO2 31.8 02/08/2023 AGAP 3.2 (L) 02/08/2023 BUN 55 (H) 02/08/2023 CR 2.53 (H) 02/08/2023 GFRNON 37 12/19/2021 GFRNON 37 12/19/2021 GFR --- 12/19/2021 GLU 161 (H) 02/08/2023 CA 9.3 02/08/2023 Lab Results Component Value Date WBC 9.65 02/08/2023 HGB 8.6 (L) 02/08/2023 PLT 183 02/08/2023 Lab Results Component Value Date CHOL 151 02/01/2022 TRI 119 02/01/2022 HDL 73 02/01/2022 TP 7.5 02/06/2023 ALB 3.0 (L) 02/06/2023 ALT 19 02/06/2023 HGBA1C 7.8 (H) 02/08/2023 TSH 4.900 (H) 12/29/2022 Pertinent additional labs Imaging: ECG 12 lead Result Date: 02/07/2023 [facility] [address] [place] [address] Test Date: 2023-02-06 Pat Name: OBIE SIMS [facility] Press Room Supervisor: Ti : 1955 Requested By: ALYSSA BUCIO Order Number: [id number] Reading MD: Brit Gonzáles Measurements Intervals [place] Rate: 87 P: -80 VT: 262 QRS: -37 QRSD: 150 T: 136 QT: 406 QTc: 489 Interpretive Statements SINUS RHYTHM WITH FIRST DEGREE AV BLOCK LEFT AXIS DEVIATION LEFT BUNDLE BRANCH BLOCK ECG 12 lead Result Date: 02/06/2023 [facility] Test Date: 2023-02-06 [facility] Department: 70 Room: EXAMN Gender: Male Press Room Supervisor: : 1955 Requested By: AMAURI HAMMOND Order Number: [id number] Reading MD: Brit Gonzáles Measurements Intervals [place] Rate: 89 P: VT: 0 QRS: -34 QRSD: 137 T: 138 QT: 384 QTc: 469 Interpretive Statements UNCERTAIN REGULAR RHYTHM LEFT AXIS DEVIATION [QRS AXIS < -30] INTRAVENTRICULAR CONDUCTION DELAY [130+ ms QRS DURATION] POSSIBLE ANTERIOR MYOCARDIAL INFARCTION , PROBABLY OLD [30 ms Q WAVE IN V3/V4, OR R < 0.2 mV IN V4] ECG 12 lead Result Date: 01/27/[address] [place] [address] Test Date: 2023-01-26 Pat Name: DANIELLA Department: 3 Room: EXAM 707 Gender: Male Press Room Supervisor: : [id number] By: URI BLAIR Order Number: [id number] Reading MD: Sharon Willis Measurements Intervals [place] Rate: 99 P: -10 VT: 232 QRS: -18 QRSD: 137 T: 123 [...] anterior degenerative spondylosis. There are mild foraminal st enoses due to uncovertebral arthropathy at C2-3 and C3-4. There is mild facet arthropathy. The spinous processes are intact. The prevertebral soft tissues are normal. The lateral masses of C1 and C2 are well aligned. The odontoid process is intact. The atlanto-occipital articulations are intact. There is densely calcified disease in the carotid [...] of the following techniques: 1. Automated exposure control. 2. Adjustment of the mA and/or kV according to patient size (this includes techniques or standardized protocols for targeted exams where dose is matched to the indication/reason for exam, i.e. extremities or head). 3. Use of iterative reconstructive technique. FINDINGS: CHEST: There are postsurgicalchanges seen in the sternum. Coronary arterial calcifications are noted. The heart is enlarged. No pericardial effusion is seen. Minimal pleural thickening is noted. No pneumothorax or pleural effusion is seen. Mild interstitial prominence is noted. [...] hyperattenuating area in the left kidney and hypoattenuating areas in the left kidney which are [...] anasarca. Large subcutaneous hyperattenuating area to suggest hematoma is not appreciated. There are degenerative changes in the spine. There are postsurgical changes seenin the left hip. There are degenerative changes [...] of cardiac surgery. The aeration of the lungsis worse than before with limited inspiration. In [...] cerebellar hemispheres bilaterally, right greater than left. Oldinfarct involving the left thalamus. The sellar, callosal, pineal, and craniovertebral junction regions appear within normal limits. There is no extra-axial fluid collection. The ventricles are normal in size. The basal cisterns appear normal. The proximal intracranial arterial flow voids have a nor mal appearance. Orbital contents appear normal. Paranasal sinuses and mastoid air cells are well aerated. IMPRESSION: 1. No acute intracranial abnormality. 2. 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 3. Mild chronic small vessel ischemic change. Ordered By: ALYSSA BUCIO Interpreted By: Luis Presley MD, 02/06/2023 7:16 AM ASSESSMENT/PLAN: Signed JEFF DELGADO MD 02/08/2023 * Alison Balderas MD - 02/08/2023 1:54 AM CDTAssociated Order(s): IP CONSULT TO HOSPITALIST [facility] Hospitalist Consult Note Attending Provider: Alison Balderas MD PCP: MEGAN INFANTE MD Chief Complaint: Medical mgmt HPI: Obie Sims is a 67-year-old male with a past medical history of A-fib, COPD, CAD, diabetes mellitus, hyperlipidemia, hypertension and asthma initially presented to hospital on 02/06 for rib fractures and is currently being managed by the trauma team. Patient noted to have elevated blood sugars inthe 400's and was given 12 units of insulin with improvement. Hospitalist team consulted for assistance w/ DM management. Patient states that he has not taken his metformin for a few weeks and sometimes takes 20 units of insulin however unsure. At this time he denies any fevers, chills, nausea, vomiting, diarrhea, CP, SOB, abdominal pain, dysuria, hematuria, numbness/tingling, weakness, headachesor visual changes. ROS: A 10 system review was obtained and is negative except as in HPI above Past Medical History: Diagnosis Date Abnormal ankle brachial index (STELLA) Acute on chronic heart failure, unspecified heart failure type ([facility]) Anxiety Aortic valve stenosis Arthritis Asthma, mild persistent 04/06/2021 Atrial fibrillation ([facility]) s/p PVI/[facility] 10/2015 Bilateral leg pain Carotid disease, bilateral ([facility]) CHF (congestive heart failure) ([facility]) Claudication ([facility]) COPD (chronic obstructive pulmonary disease) ([facility]) Coronary artery disease Diabetes mellitus, type II ([facility]) Edema 04/19/2018 2+ pitting History of blood transfusion Hyperlipidemia Hypertension LV dysfunction Osteoarthritis PAD (peripheral artery disease) ([facility]) Pneumonia Restless leg syndrome S/P aortic valve replacement with bioprosthetic valve 2013 SOB (shortness of breath) Stroke ([facility]) Varicose veins of bilateral lower extremities with other complications Weight gain with edema Family History Problem Relation Name Age of Onset TB Mother Social History Tobacco Use Smoking status: Former Smokeless tobacco: Former Types: Chew Substance Use Topics Alcohol use: Yes Comment: 6 beers per week No current facility-administered medications on file prior [...] mg total) by mouth nightly at bedtime. carvedilol (COREG) 3.125 MG tablet Take 1 tablet (3.125 mg total) by mouth 2 (two) times daily. furosemide (LASIX) 40 MG tablet Take 1 tablet (40 mg total) by mouth 2 (two) times daily. gabapentin (NEURONTIN) 400 MG capsule Take 1 capsule (400 mg total) by mouth. 1 tablet in the morning and 2 tablets at night hydrOXYzine (ATARAX) 50 MG tablet Take 1 tablet (50 mg total) by mouth 3 (three) times daily. As needed JARDIANCE 25 MG tablet Take 1 tablet (25 mg total) by mouth daily. losartan (COZAAR) 25 MG tablet Take 1 tablet (25 mg total) by mouth daily. metFORMIN (GLUCOPHAGE) 500 MG tablet Take 1 tablet (500 mg total) by mouth 2 (two) times daily withmeals. pantoprazole EC 40 MG tablet Take 1 [...] mg total) by mouth nightly at bedtime. warfarin (COUMADIN) 1 MG tablet 2 tablets (2 mg total) daily. As directed warfarin (COUMADIN) 5 MG tablet daily. As directed amLODIPine (NORVASC) 2.5 MG tablet Take 1 tablet (2.5 mg total) by mouth daily. camphor-menthol (SARNA) lotion Apply topically 2 (two) times a day. docusate sodium 100 MG capsule Take 1 capsule (100 mg total) by mouth as needed for Constipation. glipiZIDE XL (GLUCOTROL XL) 5 MG 24 hr tablet 2 tablets (10 mg total). 1-2 tablets daily in am HYDROcodone-acetaminophen (NORCO) 7.5-325 MG tablet Take 1 tablet by mouth every 8 (eight) hours asneeded for Pain. insulin detemir (LEVEMIR FLEXPEN) 100 UNIT/ML PEN Inject into the skin as needed (only uses inslin if he needs it he states). methocarbamol (ROBAXIN) 500 MG tablet Take 1 tablet (500 mg total) by mouth 3 (three) times daily. metOLazone (ZAROXOLYN) 2.5 MG tablet Take 1 tablet (2.5 mg total) by mouth daily. mupirocin (BACTROBAN) 2 % ointment Apply 1 Application topically 2 (two) times daily. TRELEGY ELLIPTA 100-62.5-25 MCG/ACT AEROSOL POWDER, BREATH ACTIVATED Inhale 1 puff into the lungs daily. No Known Allergies Blood pressure 117/72, pulse 81, temperature 97.5 ??F (36.4 ??C), resp. rate 18, height 5' 6 (1.676 m), weight 98.9 kg (218 lb), SpO2 99 %. Physical Exam General: Well-developed, Well-nourished, and appears to be in no acute distress. Head: Normocephalic, atraumatic Eyes: MARIS, EOMI Ears: Hearing grossly intact, atraumatic external ear Throat: Moist Mucous Membranes. Neck: Supple Heart: Regular rate and rhythm, no murmur noted Lungs: Clear to auscultation bilaterally, No wheezing b/l Abdomen: Soft, non-tender. Bowel sounds normal. No masses or hepatosplenomegaly. Skin: No rashes or lesions MSK: Pulses 2+, ROM full, no edema noted Neurologic: Alert and Oriented x3, no focal deficits. Psych: Appropriate mood and affect. Labs as below reviewed by me: Recent Labs 02/06/2315502/06/23 0552 02/07/23 0538 02/07/23 14302/07/232036 WBC 10.96* -- 7.55 -- -- HGB 7.7* < > 6.8* 8.6* 8.7* HCT 26.5* < > 24.2* 29.3* 29.3* MCV 77.9* -- 79.6 -- -- PLT 166 -- 158 -- -- RBC 3.40* -- 3.04* -- -- < > = values in this interval not displayed. Recent Labs Lab 02/06/2315502/06/23204102/07/23 0538 NA 132* -- 138 K 4.3 -- 4.2 CL 99 -- 106 CO2 26.2 -- 27.1 AGAP 6.8 -- 4.9* BUN 72* -- 56* CR 2.81* -- 2.08* GLU 173* -- 84 CA 8.8 -- 9.1 TP 7.8 7.5 -- ALB 3.1* 3.0* -- TBIL 1.2* 1.2* -- ALKP 144* 130* -- AST 25 23 -- ALT 19 19 -- Imaging as per radiologist: XR CHEST PORTABLE Result Date: 02/07/2023 IMPRESSION: 1. No acute chest disease identified. 2. The known right rib fractures are not well depicted radiographically. Ordered By: ALYSSA BUCIO Interpreted By: Misael Diaz MD, 02/07/2023 7:44 AM Assessment / Plan: #Rib fractures s/p ground level fall #Hx of DM #Hx of HTN #Hx of A-Fib #Hx of gout #Hx of Anxiety #Hx of CHF Plan - Management of rib fractures per primary team - Pain control per primary team - Lantus 8 units at bedtime, titrate as appropriate - Sliding scale insulin, titrate as needed - Diabetic diet - Regular BG checks - Continue home medications for chronic problems - Monitor on Telemetery - DVT prophylaxis per primary team - Daily labs - Full Code Disposition: Management as above. Will continue to follow. Total time spent: 55 minutes, including clinical decision making, review of labs and previous records, physical examination, discussing with patient about current medical condition and management as well as documenting in the medical record. ALISON BALDERAS MD 02/08/2023 documented in this encounter ED Notes * Nathalia De La Torre RN - 02/06/2023 6:17 AM CDT [id number] Uri (daughter) [id number] yannick (daughter) * Amauri Hammond MD - 02/06/2023 1:44 AM CDT ED NOTE Chief Complaint Chief Complaint Patient presents with Fall History of Present Illness Patient is a 67-year-old male with a past medical history of heart failure, diabetes, coronary artery disease, COPD presenting for mechanical fall. Patient states that he tripped and fell in his basement and hit his head on the wall. He was found down by family member and EMS was called who states that he was found in a large puddle of blood. Patient endorses headache and some lightheadedness at this time. He does remember the event and states that he tripped and fell. Medical History ALLERGIES: Review of patient's allergies [...] by mouth daily. 02/17/19 [facility] amLODIPine (NORVASC) 2.5 MG tablet Take 1 tablet (2.5 mg total) by mouth daily. Default History Genericprovider aspirin 81 MG chewable tablet Chew 1 tablet (81 mg total) by mouth daily. 04/18/14 [facility] atorvastatin 80 MG tablet Take 1 tablet (80 mg total) by mouth nightly at bedtime. 12/31/16 [facility] camphor-menthol (SARNA) lotion Apply topically 2 (two) times a day. Default History Genericprovider carvedilol (COREG) 3.125 MG tablet Take 1 tablet (3.125 mg total) by mouth 2 (two) times daily. 10/09/22 Default History Genericprovider docusate sodium 100 MG capsule Take 1 capsule (100 mg total) by mouth as needed for Constipation. [facility] furosemide (LASIX) 80 MG tablet Take 1 tablet (80 mg total) by mouth daily for 30 days. 01/04/23 02/03/23 Juanpablo Herman MD gabapentin (NEURONTIN) 400 MG capsule Take 1 capsule (400 mg total) by mouth. 1 tablet in the morning and 2 tablets at night 12/14/22 Default History Genericprovider glipiZIDE XL (GLUCOTROL XL) 5 MG 24 hr tablet 2 tablets (10 mg total). 1-2 tablets daily in am 09/29/22 Default History Genericprovider HYDROcodone-acetaminophen (NORCO) 7.5-325 MG tablet Take 1 tablet by mouth 2 (two) times daily as needed. Indications: Chronic Pain 01/04/23 Juanpablo Herman MD hydrOXYzine (ATARAX) 50 MG tablet Take 1 tablet (50 mg total) by mouth 3 (three) times daily. As needed 10/09/22 Default History Genericprovider insulin detemir (LEVEMIR FLEXPEN) 100 UNIT/ML PEN Inject into the skin as needed (only uses inslin if he needs it he states). Default History Genericprovider JARDIANCE 25 MG tablet Take 1 tablet (25 mg total) by mouth daily. 10/31/22 Default History Genericprovider losartan (COZAAR) 25 MG tablet Take 1 tablet (25 mg total) by mouth daily. 01/13/23 Default History Genericprovider metFORMIN (GLUCOPHAGE) 500 MG tablet Take 1 tablet (500 mg total) by mouth 2 (two) times daily withmeals. Default History Genericprovider methocarbamol (ROBAXIN) 500 MG tablet Take 1 tablet (500 mg total) by mouth 3 (three) times daily. 11/20/22 Default History Genericprovider metOLazone (ZAROXOLYN) 2.5 MG tablet Take 1 tablet (2.5 mg total) by mouth daily. Default History Genericprovider mupirocin (BACTROBAN) 2 % ointment Apply 1 Application topically 2 (two) times daily. 12/14/22 Default History Genericprovider pantoprazole EC 40 MG tablet Take 1 tablet (40 mg total) by mouth daily. [facility] potassium chloride CR (KLOR-CON M) 20 MEQ tablet Take 1 tablet (20 mEq total) by mouth daily. Default History Genericprovider rOPINIRole (REQUIP) 4 MG tablet Take 1 tablet (4 mg total) by mouth nightly at bedtime. 10/17/22 Default History Genericprovider sertraline 50 MG tablet Take 1 tablet (50 mg total) by mouth daily. 10/03/21 [facility] spironolactone (ALDACTONE) 25 MG tablet Take 1 tablet (25 mg total) by mouth daily. 09/05/22 DefaultHistory Genericprovider traZODone (DESYREL) 100 MG tablet Take 2 tablets (200 mg total) by mouth nightly at bedtime. 03/24/22[facility] TRELEGY ELLIPTA 100-62.5-25 MCG/ACT AEROSOL POWDER, BREATH ACTIVATED Inhale into the lungs daily. 12/23/22 Default History Genericprovider warfarin (COUMADIN) 1 MG tablet 2 tablets (2 mg total) daily. As directed 10/22/22 Default History Genericprovider warfarin (COUMADIN) 5 MG tablet daily. As directed 05/14/22 Default History Genericprovider PAST MEDICAL HISTORY: Past Medical History: Diagnosis Date Abnormal ankle brachial index (STELLA) Acute on chronic heart failure, unspecified heart failure type ([facility]) Anxiety Aortic valve stenosis Arthritis Asthma, mild persistent 04/06/2021 Atrial fibrillation ([facility]) s/p PVI/[facility] 10/2015 Bilateral leg pain Carotid disease, bilateral ([facility]) CHF (congestive heart failure) ([facility]) Claudication ([facility]) COPD (chronic obstructive pulmonary disease) ([facility]) Coronary artery disease Diabetes mellitus, type II ([facility]) Edema 04/19/2018 2+ pitting History of blood transfusion Hyperlipidemia Hypertension LV dysfunction Osteoarthritis PAD (peripheral artery disease) ([facility]) Pneumonia Restless leg syndrome S/P aortic valve replacement with bioprosthetic valve 2013 1999, 2013 SOB (shortness of breath) Stroke ([facility]) Varicose veins of bilateral lower extremities with other complications Weight gain with edema PAST SURGICAL HISTORY: Past Surgical History: Procedure Laterality Date APPENDECTOMY CARDIAC VALVE REPLACEMENT 1999 CARDIAC VALVE REPLACEMENT 2013 CARDIOVERSION EXTERNAL 10/01/2015 CARDIOVERSION EXTERNAL 04/14/2012 COLONOSCOPY N/A 03/18/2021 COLONOSCOPY (Incomplete) performed by Kilo Navarro MD at [facility] OR COLONOSCOPY N/A 01/27/2022 COLONOSCOPY WITH COLD SNARE POLYPECTOMY performed by Kilo Navarro MD at [facility] OR HIP ARTHROPLASTY Left KNEE ARTHROPLASTY [...] 6 beers per week Drug use: No Review of Systems Review of Systems Constitutional: Negative for chills, fatigue and fever. HENT: Negative for congestion, rhinorrhea and sore throat. Eyes: Negative for visual disturbance. Respiratory: Negative for cough and shortness of breath. Cardiovascular: Negative for chest pain and leg swelling. Gastrointestinal: Negative for abdominal distention, abdominal pain, diarrhea and vomiting. Genitourinary: Negative for dysuria and flank pain. Musculoskeletal: Negative for back pain. Skin: Negative for rash. Neurological: Positive for light-headedness and headaches. Negative for dizziness. Hematological: Does not bruise/bleed easily. All other systems reviewed and are negative. Physical Exam Filed Vitals: 02/06/23 0147 02/06/23 0219 02/06/23 0521 BP: 111/74 123/82 Pulse: 91 85 Resp: 20 16 Temp: 98.1 ??F (36.7 ??C) TempSrc: Oral SpO2: 92% (!) 88% 94% Weight: 98.9 kg (218 lb) Height: 5' 6 (1.676 m) Physical Exam Vitals and nursing note reviewed. Constitutional: General: He is not in acute distress. Appearance: Normal appearance. He is well-developed and normal weight. He is ill-appearing. He is not toxic-appearing or diaphoretic. HENT: Head: Normocephalic. Comments: 1 cm superficial laceration to the apex of the forehead Mouth/Throat: Mouth: Mucous membranes are moist. Pharynx: Oropharynx is clear. Eyes: Conjunctiva/sclera: Conjunctivae normal. Pupils: Pupils are equal, round, and reactive to light. Cardiovascular: Rate and Rhythm: Normal rate and regular rhythm. Pulmonary: Effort: Pulmonary effort is normal. No respiratory distress. Breath sounds: Normal breath sounds. Abdominal: General: There is no distension. Palpations: Abdomen is soft. Tenderness: There is no abdominal tenderness. Musculoskeletal: General: No tenderness or deformity. Normal range of motion. Cervical back: Normal range of motion and neck supple. Skin: General: Skin is warm and dry. Neurological: Mental Status: He is alert and oriented to person, place, and time. Mental status is at baseline. Diagnostic Studies / Procedures ELECTROCARDIOGRAMS: Results for orders placed or performed during the hospital encounter of 02/06/23 ECG 12 lead Narrative S-ED Test Date: 2023-02-06 Pat Name: OBIE SIMS Department: 70 Room: EXAM N Gender: Male Press Room Supervisor: : [id number] Requested By: AMAURI HAMMOND Order Number: [id number] Reading MD: Brit Gonzáles Measurements Intervals [place] Rate: 89 P: VT: 0 QRS: -34 QRSD: 137 T: 138 QT: 384 QTc: 469 Interpretive Statements UNCERTAIN REGULAR RHYTHM LEFT AXIS DEVIATION [QRS AXIS < -30] INTRAVENTRICULAR CONDUCTION DELAY [130+ ms QRS DURATION] POSSIBLE ANTERIOR MYOCARDIAL INFARCTION , PROBABLY OLD [30 ms Q WAVE IN V3/V4, OR R < 0.2 mV IN V4] LABORATORY STUDIES: Results for orders placed or performed during the hospital encounter of 02/06/23 CBC W/DIFF AUTOMATED Result Value Ref Range WBC 10.96 (H) 4.00 - 10.80 x10'3/uL RBC 3.40 (L) 4.50 - 6.10 x10'6/uL HGB 7.7 (L) 13.0 - 18.0 G/DL HCT 26.5 (L) 37.0 - 52.0 % MCV 77.9 (L) 78.0 - 100.0 FL MCH 22.6 (L) 27.0 - 31.0 PG MCHC 29.1 (L) 33.0 - 36.0 G/DL RDW 19.5 (H) 11.5 - 14.5 % PLT 166 150 - 350 x10'3/uL MPV 10.8 (H) 7.4 - 10.4 FL ABS. NEUTROPHILS 9.24 (H) 1.60 - 8.30 x10'3/uL ABS. LYMPHOCYTES 0.68 (L) 0.80 - 4.70 x10'3/uL ABS. MONOCYTES 0.77 0.00 - 1.50 x10'3/uL ABS. EOSINOPHILS 0.16 0.00 - 0.40 x10'3/uL ABS. BASOPHILS 0.05 0.00 - 0.20 x10'3/uL ABS. IMMATURE GRANULOCYTES 0.06 (H) 0.00 - 0.03 x10'3/uL ABS. NUCLEATED RBC'S 0.00 0.0 x10'3/uL PROTIME/INR, VENOUS Result Value Ref Range PROTIME 40.7 (H) 9.4 - 12.5 SEC INR 3.5 (H) 0.8 - 1.1 PARTIAL THROMBOPLASTIN TIME,PTT Result Value Ref Range PTT 39.3 (H) 25.1 - 36.5 SEC COMPREHENSIVE METABOLIC PANEL Result Value Ref Range SODIUM S/P/B 132 (L) 136 - 145 MMOL/L POTASSIUM S/P/B 4.3 3.5 - 5.1 MMOL/L CHLORIDE S/P/B 99 98 - 107 MMOL/L CO2 26.2 21.0 - 32.0 MMOL/L GLUCOSE 173 (H) 74 - 106 MG/DL BUN 72 (H) 7 - 18 MG/DL CREATININE S/P/B 2.81 (H) 0.70 - 1.30 MG/DL CALCIUM S/P/B 8.8 8.5 - 10.1 MG/DL BILIRUBIN TOTAL S/P/B 1.2 (H) 0.2 - 1.0 MG/DL ALKALINE PHOSPHATASE S/P/B 144 (H) 45 - 115 U/L AST 25 15 - 37 U/L ALT 19 16 - 61 U/L TOTAL PROTEIN S/P/B 7.8 6.4 - 8.2 G/DL ALBUMIN S/P/B 3.1 (L) 3.4 - 5.0 G/DL ANION GAP 6.8 5.0 - 15.0 MMOL/L OSMOLALITY (CALC) 299 MOSM/KG GFR ESTIMATE 24 (L) >90 ML/MIN/1.73 M2 GFR NOTES GFR REFERENCES: TROPONIN, QUANT Result Value Ref Range TROPONIN I HIGH SENSITIVITY 39 0 - 78 ng/L CK (CPK) Result Value Ref Range CPK 159 39 - 308 U/L TYPE AND SCREEN Result Value Ref Range ABO/RH A POSITIVE ANTIBODY SCREEN NEGATIVE SAMPLE EXPIRATION 02/09/2023,2359 BB COMMENT PATIENT HAS PREVIOUS ANTIBODY HISTORY WITH CURRENT NEGATIVE SCREEN. COMPATIBLE BLOOD WILL TAKE EXTRA TIME TO PREPARE. IMAGING STUDIES XR HIP ELZA 2V+PELVIS Final Result by User, [email or web address] (02/06 0336) Date: 02/06/2023 3:24 AM Exam: XR HIP [...] a 7 mm loose body along the lateral right hip. The pubic rami and iliac wings are intact. Impression: 1. Well seated left hip arthroplasty with marked heterotopic bone formation surrounding the left arthroplasty. 2. Right hip CAM-type femoral acetabular impingement. Moderate to advanced arthritis right hip. Referred By: Interpreted By: Luis Burger MD, 02/06/2023 3:[address] HEAD WO CON Final Result by User, [email or web address] (02/06 315) Date: 02/06/2023 3:05 AM Exam: CT HEAD [...] hours. Findings: There is mild atrophy and white matter disease. There is no intracranial hemorrhage. The quez[place] white matter differentiation is preserved. There is no hyperdense arterial sign. There [...] By: Luis Burger MD, 02/06/2023 3:[address] CERV SPINE WO CON Final Result by User, [email or web address] (02/06 318) Date: 02/06/2023. Exam: CT cervical spine. Comparison: [...] normal. The lateral masses of C1 and C2 are well aligned. The odontoid process is intact. The atlanto-occipital articulations are intact. There is densely calcified disease in the carotid arteries. Impression: 1. No acute osseous abnormality. 2. Mild facet arthropathy. Bulky anterior degenerative spondylosis. Referred By: Interpreted By: Luis Burger MD, 02/06/2023 3:[address] CHEST+ABD+PEL WO CON Final Result by User, [email or web address] (02/06 0332) Indication: Trip and fall, hit head, lying on the floor, rib pain and leg pain, abdominal pain COMPARISON: 12/28/2022 DOSE OPTIMIZATION: This facility uses dose optimization techniques as appropriate to perform exams, including at least one of the following techniques: 1. Automated exposure control. 2. Adjustment of the mA and/or kV according to patient size (this includes techniques or standardized protocols for targeted exams where dose is matched to the indication/reason for exam, i.e. extremities or head). 3. Use of iterative reconstructive technique. FINDINGS: CHEST: There are postsurgical changes seen in the sternum. Coronary arterial calcifications are noted. The heart is enlarged. No pericardial effusion is seen. Minimal pleural thickening is noted. No pneumothorax or pleural effusion is seen. Mild interstitial prominence is noted. [...] hyperattenuating area in the left kidney and hypoattenuating areas in the left kidney which are [...] anasarca. Large subcutaneous hyperattenuating area to suggest hematoma is not appreciated. There are degenerative changes in [...] By: Phill Currie MD, 02/06/2023 3:17 AM XR CHEST PORTABLE (Results Pending) MRI BRAIN WO CON (Results Pending) Medications Ordered Medications normal saline 0.9 % flush 3-10 mL (3 mLs Intravenous Not Given 02/06/23 0224) normal saline 0.9 % flush 3-10 mL (10 mLs Intravenous Given 02/06/23 0156) sodium chloride 0.9% infusion (has no administration in time range) bacitracin ointment (has no administration in time range) acetaminophen (TYLENOL) tablet 650 mg (has no administration in time range) Or acetaminophen (TYLENOL) suppository 650 mg (has no administration in time range) Or acetaminophen (TYLENOL) 325 MG/10.15ML solution 650 mg (has no administration in time range) HYDROcodone-acetaminophen (NORCO) 5-325 MG tablet 1 tablet (has no administration in time range) morphine injection 2 mg (2 mg Intravenous Given 02/06/23 0503) senna-docusate (SENOKOT-S) 8.6-50 MG tablet 1 tablet (has no administration in time range) docusate sodium (COLACE) capsule 100 mg (has no administration in time range) lidocaine 4 % patch 1 patch (has no administration in time range) methocarbamol (ROBAXIN) tablet 500 mg (has no administration in time range) Tdap (BOOSTRIX) injection 0.5 mL (0.5 mLs Intramuscular Given 02/06/23 0154) morphine injection 4 mg (4 mg Intravenous Given 02/06/23 0153) sodium chloride 0.9% bolus infusion 1,000 mL (0 mLs Intravenous Infusion Stop Time 02/06/23 0458) ED Course / Medical Decision Making MDM Number of Diagnoses or Management Options Fall Scalp laceration Diagnosis management comments: 67-year-old male presenting for mechanical fall. He is hemodynamically stable and in no acute distress at this time. Concern for intracranial hemorrhage, skull fracture, neck injury, rib fracture. Plan for CT head neck chest abdomen pelvis, labs. Creatinine mildly elevated from baseline. Hemoglobin dropped one-point from last week. Suspect thisis likely from patient's hemorrhage. CT scan of the head demonstrates no intracranial injury. CT scan of the chest demonstrates multiple right-sided rib fractures. Given patient's oxygen requirement with these rib fractures as well as hemoglobin drop trauma was consulted and accepted patient for admission. Clinical Impression Fall (Primary) Scalp laceration Current Discharge Medication List Disposition: Admit Follow Up: No follow-up provider specified. Amauri Hammond MD 02/06/2023 Amauri Hammond MD 02/06/23 0558 * Laura Felix RN - 02/06/2023 1:44 AM CDT Pt arrives via EMS from home after he tripped and fell in his basement, hitting his head on the wall. Pt then layed on the floor for 1-1.5H before being found. Pt denies LOC. Pt does take warfarin. Pt a/o x4. Pt c/o right sided rib pain and bilat leg pain * Laura Felix RN - 02/06/2023 1:41 AM CDT Bed: N Expected date: Expected time: Means of arrival: Comments: 57M Trauma triage Fall documented in this encounter Plan of Treatment Upcoming Encounters Date Type Department Care Team (Late st Contact Info) Description 09/25/2024 2:00 PM NIGHT CLUB MANAGER Appointment [facility] [address] [place] [address] Zayra Powell, [facility] [address] [place] [phone] 10/16/2024 3:30 PM NIGHT CLUB MANAGER Office Visit [facility] [address] [phone] Brit Gonzáles MD [address] [place] [address] documented as of this encounter Goals Goal Patient Goal Type Associated Problems Recent Progress Patient-Stated? Author Family - family caregiver with be involved in care transitions and discharge planning Lifestyle No Karen Quezada RN documented as of this encounter Procedures Procedure Name Priority Date/Time Associated Diagnosis Comments HEMOGLOBIN AND HEMATOCRIT STAT 02/09/2023 12:27 PM CDT POCT GLUCOSE - VALLECILLO DOCKED DEVICE Routine 02/09/2023 11:45 AM CDT POCT GLUCOSE - VALLECILLO DOCKED DEVICE Routine 02/09/2023 6:33 AM CDT BLOOD GAS, VENOUS Routine 02/09/2023 2:5 8 AM CDT PROTHROMBIN TIME, VENOUS Routine 02/09/2023 2:58 AM CDT BASIC METABOLIC PANEL Routine 02/09/2023 2:58 AM CDT POCT GLUCOSE - VALLECILLO DOCKED DEVICE Routine 02/08/2023 9:34 PM CDT POCT GLUCOSE - VALLECILLO DOCKED DEVICE Routine 02/08/2023 4:02 PM CDT POCT GLUCOSE - VALLECILLO DOCKED DEVICE Routine 02/08/2023 11:57 AM CDT BASIC METABOLIC PANEL STAT 02/08/2023 8:13 AM CDT CBC W/DIFF AUTOMATED STAT 02/08/2023 8:13 AM CDT PHOSPHORUS, INORGANIC PHOSPHATE STAT 02/08/2023 8:13 AM CDT MAGNESIUM STAT 02/08/2023 8:13 AM CDT POCT GLUCOSE - VALLECILLO DOCKED DEVICE Routine 02/08/2023 6:06 AM CDT HEMOGLOBIN, GLYCOSYLATED TIMED 02/08/2023 5:52 AM CDT PROTHROMBIN TIME, VENOUS Routine 02/08/2023 1:52 AM CDT POCT GLUCOSE - VALLECILLO DOCKED DEVICE Routine 02/08/2023 1:04 AM CDT POCT GLUCOSE - VALLECILLO DOCKED DEVICE Routine 02/08/2023 12:17 AM CDT POCT GLUCOSE - VALLECILLO DOCKED DEVICE Routine 02/07/2023 10:44 PM CDT POCT GLUCOSE - VALLECILLO DOCKED DEVICE Routine 02/07/2023 10:10 PM CDT HEMOGLOBIN AND HEMATOCRIT TIMED 02/07/2023 8:37 PM CDT POCT GLUCOSE - VALLECILLO DOCKED DEVICE Routine 02/07/2023 4:57 PM CDT HEMOGLOBIN AND HEMATOCRIT TIMED 02/07/2023 2:33 PM CDT POCT GLUCOSE - VALLECILLO DOCKED DEVICE Routine 02/07/2023 11:44 AM CDT TRANSFUSE RED BLOOD CELLS Routine 02/07/2023 11:33 AM CDT XR CHEST PORTABLE STAT 02/07/2023 7:3 3 AM CDT POCT GLUCOSE - VALLECILLO DOCKED DEVICE Routine 02/07/2023 6:44 AM CDT RBC MORPHOLOGY Routine 02/07/2023 5:38 AM CDT PROTHROMBIN TIME, VENOUS Routine 02/07/2023 5:38 AM CDT BASIC METABOLIC PANEL Routine 02/07/2023 5:38 AM CDT CBC W/DIFF AUTOMATED Routine 02/07/2023 5:38 AM CDT PHOSPHORUS, INORGANIC PHOSPHATE Routine 02/07/2023 5:38 AM CDT MAGNESIUM Routine 02/07/2023 5:38 AM CDT HEMOGLOBIN AND HEMATOCRIT TIMED 02/06/2023 11:51 PM CDT ECG 12-LEAD Routine 02/06/2023 9:37 PM CDT HEPATIC FUNCTION PANEL Routine 02/06/2023 8:42 PM CDT POCT GLUCOSE - VALLECILLO DOCKED DEVICE Routine 02/06/2023 8:19 PM CDT XR CHEST PORTABLE TIMED 02/06/2023 11: 55 AM CDT HEMOGLOBIN AND HEMATOCRIT STAT 02/06/2023 10:36 AM CDT MRI BRAIN WO CON STAT 02/06/2023 7:13 AM CDT URINE BACTERIA CULTURE Nurse Collected Priority 02/06/2023 6:28 AM CDT HC URINALYSIS AUTO W/MICRO Nurse Collected Priority 02/06/2023 6:27 AM CDT HEMOGLOBIN AND HEMATOCRIT STAT 02/06/2023 5:52 AM CDT XR HIP ELZA 2V+PELVIS STAT 02/06/2023 3:[address] HEAD WO CON STAT 02/06/2023 3:[address] CHEST+ABD+PEL WO CON STAT 02/06/2023 3:[address] CERV SPINE WO CON STAT 02/06/2023 3:06 AM CDT TYPE & SCREEN STAT 02/06/2023 1:56 AM CDT PARTIAL THROMBOPLASTIN TIME,PTT STAT 02/06/2023 1:56 AM CDT PROTHROMBIN TIME, VENOUS STAT 02/06/2023 1:56 AM CDT COMPREHENSIVE METABOLIC PANEL STAT 02/06/2023 1:56 AM CDT CBC W/DIFF AUTOMATED STAT 02/06/2023 1:56 AM CDT TROPONIN, QUANT STAT 02/06/2023 1:56 AM CDT CK (CPK) STAT 02/06/2023 1:56 AM CDT ECG 12-LEAD STAT 02/06/2023 1:52 AM CDT documented in this encounter Results * (ABNORMAL) HEMOGLOBIN AND HEMATOCRIT (02/09/2023 12:27 PM CDT) HGB 9.5(L) 13.0 - 18.0 G/DL 02/09/2023 12:37 PM CDT [facility] HCT 31.8(L) 37.0 - 52.0 % 02/09/2023 12:37 PM CDT [facility] 02/09/2023 12:2 7 PM CDT Maximiliano REBOLLEDO [facility] Final Result Performing Organization Address [facility] de Phone Number [facility] [address] [place] [address], [phone] * (ABNORMAL) POCT glucose (02/09/2023 11:45 AM CDT) GLUCOSE POC 156(H) 70 - 109 02/09/2023 11:54 AM CDT [facility] 02/09/2023 11:4 5 AM CDT Angeles Carney DO POCT ORDERABLES - DEVICE Final R esult Performing Organization Address [facility] Co de Phone Number [facility] [address] [place] [address], [phone] * (ABNORMAL) POCT glucose (02/09/2023 6:33 AM CDT) GLUCOSE POC 167(H) 70 - 109 02/09/2023 6:38 AM CDT [facility] 02/09/2023 6:33 AM CDT us Angeles Carney DO POCT ORDERABLES - DEVICE Final R esult Performing Organization Address [facility] de Phone Number [facility] [address] [place] [address], [phone] * (ABNORMAL) PROTIME/INR, VENOUS (PROTHROMBIN TIME) (02/09/2023 2:58 AM CDT) PROTIME 26.7(H) 9.4 - 12.5 SEC 02/09/2023 3:32 AM CDT [facility] INR 2.3(H) 0.8 - 1.1 02/09/2023 3:32 AM CDT [facility] 02/09/2023 2:58 AM CDT Bill Mills MD LABORATORY Final Resul t Performing Organization Address [facility] de Phone Number [facility] [address] [place] [address], [phone] * (ABNORMAL) BASIC METABOLIC PANEL (02/09/2023 2:58 AM CDT) SODIUM S/P/B 131(L) 136 - 145 MMOL/L 02/09/2023 3:50 AM CDT [facility] POTASSIUM S/P/B 3.7 3.5 - 5.1 MMOL/L 02/09/2023 3:50 AM CDT [facility] CHLORIDE S/P/B 92(L) 98 - 107 MMOL/L 02/09/2023 3:50 AM CDT [facility] CO2 31.1 21.0 - 32.0 MMOL/L 02/09/2023 3:50 AM T [facility] GLUCOSE 228(H) 74 - 106 MG/DL 02/09/2023 3:50 AM T [facility] BUN 54(H) 7 - 18 MG/DL 02/09/2023 3:50 AM T [facility] CREATININE S/P/B 2.27(H) 0.70 - 1.30 MG/DL 02/09/2023 3:50 AM T [facility] CALCIUM S/P/B 9.6 8.5 - 10.1 MG/DL 02/09/2023 3:50 AM T [facility] ANION GAP 7.9 5.0 - 15.0 MMOL/L 02/09/2023 3:50 AM [facility] OSMOLALITY (CALC) 294 MOSM/KG 023 3:50 AM [facility] Comment:REFERENCE RANGE NOT ESTABLISHED GFR ESTIMATE 31(L) >90 ML/MIN/1. 73 M2 02/09/2023 3:50 AM T [facility] GFR NOTES GFR REFERENCE S: 02/09/2023 3:50 AM [facility] Comment: THE ESTIMATED [...] ml/min/1.73 m2 G5,KIDNEY FAILURE: <15 ml/min/1.73 m2 02/09/2023 2:58 AM CDT Jamie Hilliard MD LABORATORY Final Resul t Performing Organization Address [facility]/ZIP Co de Phone Number [facility] [address] [place] [address], [place] [phone] * (ABNORMAL) Blood gas, venous (02/09/2023 2:58 AM CDT) PH VENOUS 7.39 7.32 - 7.42 02/09/2023 3:12 AM CDT [facility] PCO2 VENOUS 53.9(H) 41.0 - 51.0 MMHG 02/09/2023 3:12 AM CDT [facility] PO2 VENOUS 34.9 25.0 - 40.0 MM HG 02/09/2023 3:12 AM CDT [facility] BICARB VENOUS 32.2(H) 24 - 28 MMOL/L 02/09/2023 3:12 AM CDT [facility] TOTAL CO2 VENOUS 33.9(H) 25.0 - 29.0 MMOL/L 02/09/2023 3:12 AM CDT [facility] BASE EXCESS VENOUS 6.8(H) 0 - 2 MMOL/L 02/09/2023 3:12 AM CDT [facility] O2 SAT VENOUS 62 <75 % 02/09/2023 3:12 AM CDT [facility] 02/09/2023 2:58 AM CDT Jamie Hilliard MD LABORATORY Final Resul t [facility] [address] [place] [address], [place] [phone] * (ABNORMAL) POCT glucose (02/08/2023 9:34 PM CDT) GLUCOSE POC 134(H) 70 - 109 02/08/2023 9:38 PM CDT [facility] 02/08/2023 9:34 PM CDT us Ashis Carney DO POCT ORDERABLES - DEVICE Final R esult Performing Organization Address [facility] de Phone Number [facility] [address] [place] [address], [place] [phone] * (ABNORMAL) POCT glucose (02/08/2023 4:02 PM CDT) GLUCOSE POC 294(H) 70 - 109 02/08/2023 4:45 PM CDT [facility] 02/08/2023 4:02 PM CDT us Reynoso Carney DO POCT ORDERABLES - DEVICE Final R esult Performing Organization Address [facility] Co de Phone Number [facility] [address] [place] [address], [place] [phone] * (ABNORMAL) POCT glucose (02/08/2023 11:57 AM CDT) GLUCOSE POC 188(H) 70 - 109 02/08/2023 11:59 AM CDT [facility] 02/08/2023 11:5 7 AM CDT us Venkateshis Carney DO POCT ORDERABLES - DEVICE Final R esult Performing Organization Address [facility] Co de Phone Number [facility] [address] [place] [address], [place] [phone] * PHOSPHORUS, INORGANIC PHOSPHATE (02/08/2023 8:13 AM CDT) PHOSPHORUS 3.8 2.5 - 4.9 MG/DL 02/08/2023 8:45 AM CDT [facility] 02/08/2023 8:13 AM CDT us Jamie Hilliard MD LABORATORY Final Resul t Performing Organization Address [facility] de Phone Number [facility] [address] [place] [address], [place] [phone] * MAGNESIUM (02/08/2023 8:13 AM CDT) MAGNESIUM 2.1 1.6 - 2.6 MG/DL 02/08/2023 8:45 AM CDT [facility] 02/08/2023 8:13 AM CDT us Jamie Hilliard MD LABORATORY Final Resul t Performing Organization Address [facility] de Phone Number [facility] [address] [place] [address], [place] [phone] * (ABNORMAL) BASIC METABOLIC PANEL (02/08/2023 8:13 AM CDT) SODIUM S/P/B 133(L) 136 - 145 MMOL/L 02/08/2023 8:45 AM CDT [facility] POTASSIUM S/P/B 3.8 3.5 - 5.1 MMOL/L 02/08/2023 8:45 AM CDT [facility] CHLORIDE S/P/B 98 98 - 107 MMOL/L 02/08/2023 8:45 AM CDT [facility] CO2 31.8 21.0 - 32.0 MMOL/L 02/08/2023 8:45 AM CDT [facility] GLUCOSE 161(H) 74 - 106 MG/DL 02/08/2023 8:45 AM CDT [facility] BUN 55(H) 7 - 18 MG/DL 02/08/2023 8:45 AM CDT [facility] CREATININE S/P/B 2.53(H) 0.70 - 1.30 MG/DL 02/08/2023 8:45 AM CDT [facility] CALCIUM S/P/B 9.3 8.5 - 10.1 MG/DL 02/08/2023 8:45 AM CDT [facility] ANION GAP 3.2(L) 5.0 - 15.0 MMOL/L 02/08/2023 8:45 AM CDT [facility] OSMOLALITY (CALC) 295 MOSM/KG 023 8:45 AM CDT [facility] Comment:REFERENCE RANGE NOT ESTABLISHED GFR ESTIMATE 27(L) >90 ML/MIN/1. 73 M2 02/08/2023 8:45 AM CDT [facility] GFR NOTES GFR REFERENCE S: 02/08/2023 8:45 AM CDT [facility] Comment: THE ESTIMATED GFR IS CALCULATED [...] ml/min/1.73 m2 G5,KIDNEY FAILURE: <15 ml/min/1.73 m2 02/08/2023 8:13 AM CDT us Jamie Hilliard MD LABORATORY Final Resul t [facility] [address] [place] [address], [phone] * (ABNORMAL) CBC W/DIFF AUTOMATED (02/08/2023 8:13 AM CDT) WBC 9.65 4.00 - 10.80 x10'3/uL 02/08/2023 8:23 AM CDT [facility] RBC 3.65(L) 4.50 - 6.10 x10'6/uL 02/08/2023 8:23 AM CDT [facility] HGB 8.6(L) 13.0 - 18.0 G/DL 02/08/2023 8:23 AM CDT [facility] HCT 28.9(L) 37.0 - 52.0 % 02/08/2023 8:23 AM CDT [facility] MCV 79.2 78.0 - 100.0 FL 02/08/2023 8:23 AM CDT [facility] MCH 23.6(L) 27.0 - 31.0 PG 02/08/2023 8:23 AM CDT [facility] MCHC 29.8(L) 33.0 - 36.0 G/DL 02/08/2023 8:23 AM CDT [facility] RDW 20.1(H) 11.5 - 14.5 % 02/08/2023 8:23 AM CDT [facility] PLT 183 150 - 350 x10'3/uL 02/08/2023 8:23 AM CDT [facility] MPV 10.1 7.4 - 10.4 FL 02/08/2023 8:23 AM CDT [facility] ABS. NEUTROPHILS 6.96 1.60 - 8.30 x10'3/uL 02/08/2023 8:23 AM CDT [facility] ABS. LYMPHOCYTES 1.25 0.80 - 4.70 x10'3/uL 02/08/2023 8:23 AM CDT [facility] ABS. MONOCYTES 1.05 0.00 - 1.50 x10'3/uL 02/08/2023 8:23 AM CDT [facility] ABS. EOSINOPHILS 0.31 0.00 - 0.40 x10'3/uL 02/08/2023 8:23 AM CDT [facility] ABS. BASOPHILS 0.05 0.00 - 0.20 x10'3/uL 02/08/2023 8:23 AM CDT [facility] ABS. IMMATURE GRANULOCYTES 0.03 0.00 - 0.03 x10'3/uL 02/08/2023 8:23 AM CDT [facility] ABS. NUCLEATED RBC'S 0.00 0.0 x10'3/uL 02/08/2023 8:23 AM CDT [facility] 02/08/2023 8:13 AM CDT Jamie Hilliard MD LABORATORY Final Resul t Performing Organization Address [facility] de Phone Number [facility] [address] [place] [address], [phone] * (ABNORMAL) POCT glucose (02/08/2023 6:06 AM CDT) GLUCOSE POC 158(H) 70 - 109 02/08/2023 6:10 AM CDT [facility] 02/08/2023 6:06 AM CDT Bill Mills MD POCT ORDERABLES - DEVICE Fi nal Result Performing Organization Address [facility] de Phone Number [facility] [address] [place] [address], [id number] * (ABNORMAL) HEMOGLOBIN, GLYCOSYLATED (02/08/2023 5:52 AM CDT) HGB A1C 7.8(H) <5.7 % 02/08/2023 6:46 AM CDT [facility] ESTIMATED AVG GLUCOSE 177(H) 74 - 114 MG/DL 02/08/2023 6:46 AM CDT [facility] 02/08/2023 5:52 AM CDT us Alison Balderas MD LABORATORY Final Result Performing Organization Address [facility] Co de Phone Number [facility] [address] [place] [address], [id number] * (ABNORMAL) PROTIME/INR, VENOUS (PROTHROMBIN TIME) (02/08/2023 1:52 AM CDT) PROTIME 27.1(H) 9.4 - 12.5 SEC 02/08/2023 2:18 AM CDT [facility] INR 2.4(H) 0.8 - 1.1 02/08/2023 2:18 AM CDT [facility] 02/08/2023 1:52 AM CDT us Bill Mills MD LABORATORY Final Resul t Performing Organization Address [facility] de Phone Number [facility] [address] [place] [address], [id number] * (ABNORMAL) POCT glucose (02/08/2023 1:04 AM CDT) GLUCOSE POC 251(H) 70 - 109 02/08/2023 1:05 AM CDT [facility] 02/08/2023 1:04 AM CDT us Bill Mills MD POCT ORDERABLES - DEVICE Fi nal Result Performing Organization Address [facility] Co de Phone Number [facility] [address] [place] [address], [place] [phone] * (ABNORMAL) POCT glucose (02/08/2023 12:17 AM CDT) GLUCOSE POC 318(H) 70 - 109 02/08/2023 12:21 AM CDT [facility] 02/08/2023 12:1 7 AM CDT us Bill Mills MD POCT ORDERABLES - DEVICE Fi nal Result Performing Organization Address [facility] Co de Phone Number [facility] [address] [place] [address], [phone] * (ABNORMAL) POCT glucose (02/07/2023 10:44 PM CDT) GLUCOSE POC 384(H) 70 - 109 02/07/2023 10:52 PM CDT [facility] 02/07/2023 10:4 4 PM CDT us Bill Mills MD POCT ORDERABLES - DEVICE Fi nal Result Performing Organization Address [facility] Co de Phone Number [facility] [address] [place] [address], [place] [phone] * (ABNORMAL) POCT glucose (02/07/2023 10:10 PM CDT) GLUCOSE POC 406(H) 70 - 109 02/07/2023 10:51 PM CDT [facility] 02/07/2023 10:1 0 PM CDT us Bill Mills MD POCT ORDERABLES - DEVICE Fi nal Result Performing Organization Address [facility] Co de Phone Number [facility] [address] [place] [address], [phone] * (ABNORMAL) HEMOGLOBIN AND HEMATOCRIT (02/07/2023 8:37 PM CDT) HGB 8.7(L) 13.0 - 18.0 G/DL 02/07/2023 8:45 PM CDT [facility] HCT 29.3(L) 37.0 - 52.0 % 02/07/2023 8:45 PM CDT [facility] 02/07/2023 8:37 PM CDT Alyssa Bucio PA-C LABORATORY Final Resul t Performing Organization Address [facility]/ZIP Co de Phone Number [facility] [address] [place] [address], [place] [phone] * (ABNORMAL) POCT glucose (02/07/2023 4:57 PM CDT) GLUCOSE POC 175(H) 70 - 109 02/07/2023 5:00 PM CDT [facility] 02/07/2023 4:57 PM CDT Bill Mills MD POCT ORDERABLES - DEVICE Fi nal Result Performing Organization Address [facility] Co de Phone Number [facility] [address] [place] [address], [place] [phone] * TRANSFUSE RED BLOOD CELLS (02/07/2023 2:50 PM CDT) Angeles Carney DO NURSING TREATMENT ORDERABLES - B LOOD ADMIN Final Result * (ABNORMAL) HEMOGLOBIN AND HEMATOCRIT (02/07/2023 2:33 PM CDT) HGB 8.6(L) 13.0 - 18.0 G/DL 02/07/2023 2:49 PM CDT [facility] HCT 29.3(L) 37.0 - 52.0 % 02/07/2023 2:49 PM CDT [facility] 02/07/2023 2:33 PM CDT Alyssa Bucio PA-C LABORATORY Final Resul t Performing Organization Address [facility] Co de Phone Number [facility] [address] [place] [address], [place] [phone] * (ABNORMAL) POCT glucose (02/07/2023 11:44 AM CDT) GLUCOSE POC 219(H) 70 - 109 02/07/2023 12:12 PM CDT [facility] 02/07/2023 11:4 4 AM CDT Bill Mills MD POCT ORDERABLES - DEVICE Fi nal Result Performing Organization Address [facility] Co de Phone Number [facility] [address] [place] [address], [place] [phone] * XR CHEST PORTABLE (02/07/2023 7:33 AM CDT) Anatomical Region Laterality Modality Chest Radiographic Stephie ging 02/07/2023 7:44 AM CDT Impressions 02/07/2023 7:48 AM CDT IMPRESSION: 1. ??No acute chest disease identified. 2. ??The known right rib fractures are not well depicted radiographically. Ordered By: ALYSSA BUCIO Interpreted By: Misael Diaz MD, 02/07/2023 7:44 AM Narrative 02/07/2023 7:48 AM CDT Examination: XR CHEST PORTABLE Exam time: 02/07/2023 [...] comparison CT are not well depicted radiographically. Procedure Note Misael Diaz MD - 02/07/2023 Examination: XR CHEST PORTABLE Exam time: 02/07/2023 7:20 AM Clinical history: Fall and history of rib fractures. Comparison: Radiographs January 1723 and January 26, 2023. CT January 1723. Technique: AP image of the chest. Findings: Median sternotomy wires and valve prosthesis noted. Mild cardiomegaly. Thelungs appear clear. No pleural effusion or pneumothorax. The knownnondisplaced right rib fractures seen on the comparison CT are not welldepicted radiographically. IMPRESSION: 1. No acute chest disease identified. 2. The known right rib fractures are not well depictedradiographically. Ordered By: ALYSSA BUCIO Interpreted By: Misael Diaz MD, 02/07/2023 7:44 AM Alyssa Bucio PA-C GENERAL IMAGING Final Resul t * POCT glucose (02/07/2023 6:44 AM CDT) GLUCOSE POC 91 70 - 109 02/07/2023 6:56 AM CDT [facility] 02/07/2023 6:44 AM CDT Bill Mills MD POCT ORDERABLES - DEVICE Fi nal Result [facility] [address] [place] [address], [phone] * RBC MORPHOLOGY (02/07/2023 5:38 AM CDT) RBC MORPHOLOGY BASOPHILIC STIPPLING 02/07/2023 7:01 AM CDT [facility] Comment: HYPOCHROMASIA MODERATE MICROCYTOSIS SLIGHT ANISOCYTOSIS MODERATE POLYCHROMASIA SLIGHT POIKILOCYTOSIS MODERATE OVALOCYTES TARGET CELLS ACANTHOCYTES ASHISH CELLS 02/07/2023 5:38 AM CDT us Alyssa Bucio PA-C LABORATORY Final Resul t Performing Organization Address [facility] de Phone Number [facility] [address] [place] [address], [phone] * (ABNORMAL) PROTIME/INR, VENOUS (PROTHROMBIN TIME) (02/07/2023 5:38 AM CDT) PROTIME 27.8(H) 9.4 - 12.5 SEC 02/07/2023 6:20 AM CDT [facility] INR 2.4(H) 0.8 - 1.1 02/07/2023 6:20 AM CDT [facility] 02/07/2023 5:38 AM CDT Bill Mills MD LABORATORY Final Resul t Performing Organization Address [facility] de Phone Number [facility] [address] [place] [address], [phone] * PHOSPHORUS, INORGANIC PHOSPHATE (02/07/2023 5:38 AM CDT) PHOSPHORUS 3.8 2.5 - 4.9 MG/DL 02/07/2023 6:32 AM CDT [facility] 02/07/2023 5:38 AM CDT Alyssa Bucio PA-C LABORATORY Final Resul t Performing Organization Address [facility] de Phone Number [facility] [address] [place] [address], [phone] * MAGNESIUM (02/07/2023 5:38 AM CDT) MAGNESIUM 2.4 1.6 - 2.6 MG/DL 02/07/2023 6:32 AM CDT [facility] 02/07/2023 5:38 AM CDT us Alyssa Bucio PA-C LABORATORY Final Resul t [facility] [address] [place] [address], [place] [phone] * (ABNORMAL) BASIC METABOLIC PANEL (02/07/2023 5:38 AM CDT) Pathologist [facility] SODIUM S/P/B 138 136 - 145 MMOL/L 02/07/2023 6:32 AM CDT [facility] POTASSIUM S/P/B 4.2 3.5 - 5.1 MMOL/L 02/07/2023 6:32 AM CDT [facility] CHLORIDE S/P/B 106 98 - 107 MMOL/L 02/07/2023 6:32 AM CDT [facility] CO2 27.1 21.0 - 32.0 MMOL/L 02/07/2023 6:32 AM CDT [facility] GLUCOSE 84 74 - 106 MG/DL 02/07/2023 6:32 AM CDT [facility] BUN 56(H) 7 - 18 MG/DL 02/07/2023 6:32 AM CDT [facility] CREATININE S/P/B 2.08(H) 0.70 - 1.30 MG/DL 02/07/2023 6:32 AM CDT [facility] CALCIUM S/P/B 9.1 8.5 - 10.1 MG/DL 02/07/2023 6:32 AM CDT [facility] ANION GAP 4.9(L) 5.0 - 15.0 MMOL/L 02/07/2023 6:32 AM CDT [facility] OSMOLALITY (CALC) 301 MOSM/KG 023 6:32 AM CDT [facility] Comment:REFERENCE RANGE NOT ESTABLISHED GFR ESTIMATE 34(L) >90 ML/MIN/1. 73 M2 02/07/2023 6:32 AM CDT [facility] GFR NOTES GFR REFERENCE S: 02/07/2023 6:32 AM CDT [facility] Comment: THE ESTIMATED GFR IS CALCULATED [...] ml/min/1.73 m2 G5,KIDNEY FAILURE: <15 ml/min/1.73 m2 02/07/2023 5:38 AM CDT Alyssa Bucio PA-C LABORATORY Final Resul t [facility] [address] [place] [address], [phone] * (ABNORMAL) CBC W/DIFF AUTOMATED (02/07/2023 5:38 AM CDT) WBC 7.55 4.00 - 10.80 x10'3/uL 02/07/2023 6:46 AM CDT [facility] RBC 3.04(L) 4.50 - 6.10 x10'6/uL 02/07/2023 6:46 AM CDT [facility] HGB 6.8(LL) 13.0 - 18.0 G/DL 02/07/2023 6:46 AM CDT [facility] Comment: CRITICAL RESULT, SPECIMEN DATE, TIME WERE READ BACK BY YUNI JIMENES ON 02.07.23@0646. HCT 24.2(L) 37.0 - 52.0 % 02/07/2023 6:46 AM CDT [facility] MCV 79.6 78.0 - 100.0 FL 02/07/2023 6:46 AM CDT [facility] MCH 22.4(L) 27.0 - 31.0 PG 02/07/2023 6:46 AM CDT [facility] MCHC 28.1(L) 33.0 - 36.0 G/DL 02/07/2023 6:46 AM CDT [facility] RDW 19.9(H) 11.5 - 14.5 % 02/07/2023 6:46 AM CDT [facility] PLT 158 150 - 350 x10'3/uL 02/07/2023 6:46 AM CDT [facility] MPV 10.2 7.4 - 10.4 FL 02/07/2023 6:46 AM CDT [facility] ABS. NEUTROPHILS 5.01 1.60 - 8.30 x10'3/uL 02/07/2023 6:46 AM CDT [facility] ABS. LYMPHOCYTES 1.22 0.80 - 4.70 x10'3/uL 02/07/2023 6:46 AM CDT [facility] ABS. MONOCYTES 0.98 0.00 - 1.50 x10'3/uL 02/07/2023 6:46 AM CDT [facility] ABS. EOSINOPHILS 0.28 0.00 - 0.40 x10'3/uL 02/07/2023 6:46 AM CDT [facility] ABS. BASOPHILS 0.04 0.00 - 0.20 x10'3/uL 02/07/2023 6:46 AM CDT [facility] ABS. IMMATURE GRANULOCYTES 0.02 0.00 - 0.03 x10'3/uL 02/07/2023 6:46 AM CDT [facility] ABS. NUCLEATED RBC'S 0.00 0.0 x10'3/uL 02/07/2023 6:46 AM CDT [facility] 02/07/2023 5:38 AM CDT Alyssa Bucio PA-C LABORATORY Final Resul t Performing Organization Address [facility] de Phone Number [facility] [address] [place] [address], [phone] * (ABNORMAL) HEMOGLOBIN AND HEMATOCRIT (02/06/2023 11:51 PM CDT) [facility] Signature HGB 7.3(L) 13.0 - 18.0 G/DL 02/06/2023 11:58 PM CDT [facility] HCT 24.9(L) 37.0 - 52.0 % 02/06/2023 11:58 PM CDT [facility] 02/06/2023 11:5 1 PM CDT Alyssa Bucio PA-C LABORATORY Final Resul t Performing Organization Address [facility] de Phone Number [facility] [address] [place] [address], [phone] * ECG 12 lead (02/06/2023 9:37 PM CDT) 02/06/2023 9:37 PM CDT Narrative [facility] - 02/07/2023 6:21 AM CDT ? [facility] ?[address], [place] ??[address] ? Test Date: ?2023-02-06 Pat Name: ? OBIE SIMS ?Department: ?? 1 ? Room: ? 854BB Gender: ? Male ? 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 Sc : ?1955 ? Requested By: ALYSSA BUCIO Order Number: [id number] ? Reading MD: ?? Brit Gonzáles ? Measurements Intervals ?[place] ? Rate: ? 87 ? P: ?-80 VT: ? 262 ?QRS: ?-37 QRSD: ? 150 ?T: ?136 QT: ? 406 ? QTc: ?489 ? Interpretive Statements SINUS RHYTHM WITH FIRST DEGREE AV BLOCK LEFT AXIS DEVIATION LEFT BUNDLE BRANCH BLOCK Procedure Note Brit Gonzáles MD - 02/07/2023 [facility] [address] [place] [address] Test Date: 2023-02-06 Pat Name: OBIE SIMS Department: 1 Room: 85B Gender: Male Press Room Supervisor: Ti : 1955 Requested By: ALYSSA BUCIO Order Number: [id number] Reading MD: Brit Gonzáles Measurements Intervals [place] Rate: 87 P: -80 VT: 262 QRS: -37 QRSD: 150 T: 136 QT: 406 QTc: 489 Interpretive Statements SINUS RHYTHM WITH FIRST DEGREE AV BLOCK LEFT AXIS DEVIATION LEFT BUNDLE BRANCH BLOCK us Alyssa Bucio PA-C ECG ORDERABLES Final Resul t [facility] * (ABNORMAL) HEPATIC FUNCTION PANEL (02/06/2023 8:42 PM CDT) BILIRUBIN TOTAL S/P/B 1.2(H) 0.2 - 1.0 MG/DL 02/06/2023 9:13 PM CDT [facility] BILIRUBIN DIRECT S/P/B 0.5(H) 0.0 - 0.2 MG/DL 02/06/2023 9:13 PM CDT [facility] ALKALINE PHOSPHATASE S/P/B 130(H) 45 - 115 U/L 02/06/2023 9:13 PM CDT [facility] AST 23 15 - 37 U/L 02/06/2023 9:13 PM CDT [facility] ALT 19 16 - 61 U/L 02/06/2023 9:13 PM CDT [facility] TOTAL PROTEIN S/P/B 7.5 6.4 - 8.2 G/DL 02/06/2023 9:13 PM CDT [facility] ALBUMIN S/P/B 3.0(L) 3.4 - 5.0 G/DL 02/06/2023 9:13 PM CDT [facility] 02/06/2023 8:42 PM CDT us Bill Mills MD LABORATORY Final Resul t Performing Organization Address [facility] Co de Phone Number [facility] [address] [place] [address], [place] [phone] * (ABNORMAL) POCT glucose (02/06/2023 8:19 PM CDT) GLUCOSE POC 155(H) 70 - 109 02/06/2023 8:59 PM CDT [facility] 02/06/2023 8:19 PM CDT us Bill Mills MD POCT ORDERABLES - DEVICE Fi nal Result Performing Organization Address [facility] de Phone Number [facility] [address] [place] [address], [place] [phone] * XR CHEST PORTABLE (02/06/2023 11:55 AM CDT) Anatomical Region Laterality Modality Chest Radiographic Stephie ging 02/06/2023 12:5 1 PM CDT Impressions 02/06/2023 12:55 PM CDT IMPRESSION: 1) Somewhat Limited inspiration and the chest where there may be mild congestion although an inflammatory process cannot be excluded. Ordered By: ALYSSA BUCIO Interpreted By: Chidi Gonzalez MD, 02/06/2023 12:51 PM Narrative 02/06/2023 12:55 PM CDT Examination: XR CHEST PORTABLE Exam time: 02/06/2023 [...] well appreciated on the radiograph. Monitoring devices. Procedure Note Chidi Gonzalez MD - 02/06/2023 Examination: XR CHEST PORTABLE Exam time: 02/06/2023 11:50 AM Clinical history: Rib fractures. Patient had a CT scan of the chest on thesame date earlier which showed fractures at the anterolateral right ribcage. Comparison: Prior chest radiographs performed 12/28/2022. Technique: One view chest. Findings: Heart size is prominent. Postoperative changes of cardiacsurgery. The aeration of the lungs is worse than before with limitedinspiration. In the lungs there are subtle somewhat patchy groundglassopacities which may represent congestion, although an inflammatory processand/or other etiologies cannot be excluded. . There is no pneumothorax. There is no effusion. Fractures described on the CT scan are not well appreciated on theradiograph. Monitoring devices. IMPRESSION: 1) Somewhat Limited inspiration and the chest where there may be mildcongestion although an inflammatory process cannot be excluded. Ordered By: ALYSSA BUCIO Interpreted By: Chidi Gonzalez MD, 02/06/2023 12:51 PM us Alyssa Bucio PA-C GENERAL IMAGING Final Resul t * (ABNORMAL) HEMOGLOBIN AND HEMATOCRIT (02/06/2023 10:36 AM CDT) HGB 7.0(L) 13.0 - 18.0 G/DL 02/06/2023 10:57 AM CDT [facility] HCT 23.7(L) 37.0 - 52.0 % 02/06/2023 10:57 AM CDT [facility] 02/06/2023 10:3 6 AM CDT Alyssa Bucio PA-C LABORATORY Final Resul t [facility] [address] [place] [address], [phone] * MRI BRAIN WO CON (02/06/2023 7:13 AM CDT) Anatomical Region Laterality Modality Head Magnetic Resonan ce 02/06/2023 7:16 AM CDT Impressions 02/06/2023 7:19 AM CDT IMPRESSION: 1. ??No acute intracranial abnormality. 2. 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 3. ??Mild chronic small vessel ischemic change. Ordered By: ALYSSA BUCIO Interpreted By: Luis Presley MD, 02/06/2023 7:16 AM Narrative 02/06/2023 7:19 AM CDT Examination: MRI BRAIN WO CON, 02/06/2023 7:16 [...] proximal intracranial arterial flow voids have a normal appearance. Orbital contents appear normal. Paranasal sinuses and mastoid air cells are well aerated. Procedure Note Luis Presley MD - 02/06/2023 Examination: MRI BRAIN WO CON, 02/06/2023 7:16 AM. Technique: Multiplanar multisequence magnetic resonance images of thebrain were obtained without intravenous contrast. Clinical history: Fall, abnormal head CT Comparison: CT head 02/06/2023 Findings: There is no restricted diffusion to suggest an acute infarction. Focalencephalomalacia involving the superior aspect of the left temporal lobeas evidence for an old infarct. No hemorrhagic focus of susceptibility.Scattered subcortical and periventricular white matter foci demonstratingincreased signal on T2-weighted FLAIR images that are nonspecific. Oldinfarcts involving the cerebellar hemispheres bilaterally, right greaterthan left. Old infarct involving the left thalamus. The sellar, callosal,pineal, and craniovertebral junction regions appear within normallimits. There is no extra-axial fluid collection. The ventricles are normal insize. The basal cisterns appear normal. The proximal intracranial arterialflow voids have a normal appearance. Orbital contents appear normal.Paranasal sinuses and mastoid air cells are well aerated. IMPRESSION: 1. No acute intracranial abnormality. 2. 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 3. Mild chronic small vessel ischemic change. Ordered By: ALYSSA BUCIO Interpreted By: Luis Presley MD, 02/06/2023 7:16 AM us Alyssa Bucio PA-C MRI Final Resul t * CULTURE URINE (02/06/2023 6:28 AM CDT) SPEC DESCRIPTION URINE CLEAN CATCH 02/06/2023 6:28 AM CDT [facility] SPECIAL REQUESTS NO SPECIAL REQUEST 02/06/2023 6:28 AM CDT [facility] CULTURE RESULT FEW CONTAMINANTS 01/21 1:38 PM CDT [facility] URINE SPECIMEN OBTAINED BY CLEAN CATCH PROCEDURE / Unknown 02/06/2023 6:28 AM CDT 02/06/2023 6:37 AM CDT Alyssa Bucio PA-C MICROBIOLOGY - GENERAL CLARISSA MCARTHUR Final Result [facility] [address] [place] [address], [place] [phone] * (ABNORMAL) URINALYSIS (02/06/2023 6:27 AM CDT) COLOR (U) LIGHT YELLOW 02/06/2023 7:07 AM CDT [facility] TRANSPARENCY CLEAR 02/06/2023 7:07 AM CDT [facility] SPECIFIC GRAVITY (U) 1.012 1.002 - 1.035 02/06/2023 7:07 AM CDT [facility] U PH 5.5 5 - 8 02/06/2023 7:07 AM CDT [facility] PROTEIN (U) NEGATIVE NEGATIVE 02/06/2023 7:07 AM CDT [facility] URINE GLUCOSE 500(A) NEGATIVE MG/DL 02/06/2023 7:07 AM CDT [facility] KETONES MG/DL (U) NEGATIVE NEGATIVE 02/06/2023 7:07 AM CDT [facility] BILIRUBIN (U) NEGATIVE NEGATIVE 02/06/2023 7:07 AM CDT [facility] BLOOD (U) NEGATIVE NEGATIVE 02/06/2023 7:07 AM CDT [facility] NITRITES NEGATIVE NEGATIVE 02/06/2023 7:07 AM CDT [facility] UROBILINOGEN NORMAL 0 - 1 EU/DL 02/06/2023 7:07 AM CDT [facility] LEUKOCYTES (U) NEGATIVE NEGATIVE 02/06/2023 7:07 AM CDT [facility] RBC/HPF <1 0 - 3 /HPF 02/06/2023 7:07 AM CDT [facility] WBC/HPF <1 0 - 6 /HPF 02/06/2023 7:07 AM CDT [facility] BACTERIA (U) NONE /HPF 02/06/2023 7:07 AM CDT [facility] URINE SPECIMEN OBTAINED BY CLEAN CATCH PROCEDURE / Unknown 02/06/2023 6:27 AM CDT Alyssa REBOLLEDO-C URINE ORDERABLES Final Resu lt Performing Organization Address [facility] de Phone Number [facility] [address] [place] [address], [phone] * (ABNORMAL) HEMOGLOBIN AND HEMATOCRIT (02/06/2023 5:52 AM CDT) HGB 7.3(L) 13.0 - 18.0 G/DL 02/06/2023 6:16 AM CDT [facility] HCT 24.9(L) 37.0 - 52.0 % 02/06/2023 6:16 AM CDT [facility] 02/06/2023 5:52 AM CDT Alyssa REBOLLEDO-C LABORATORY Final Resul t Performing Organization Address [facility] de Phone Number [facility] [address] [place] [address], [phone] * XR HIP ELZA 2V+PELVIS (02/06/2023 3:26 AM CDT) Anatomical Region Laterality Modality Hip, Pelvis Radiographic Stephie ging 02/06/2023 3:32 AM CDT Impressions 02/06/2023 3:35 AM CDT Impression: 1. 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 2. ??Right hip CAM-type femoral acetabular impingement. ??Moderate to advanced arthritis right hip. Referred By: ?? Interpreted By: Luis Burger MD, 02/06/2023 3:32 AM Narrative 02/06/2023 3:35 AM CDT Date: 02/06/2023 3:24 AM Exam: XR HIP ELZA 2V+PELVIS Comparison: Left hip radiography dated 12/17/2011. Technique: Frontal view of the pelvis and hips. ??Frontal and lateral view of each hip. History: Fall. ??Hip pain. ??Pain down the legs. Findings: There is a left hip arthroplasty without dislocation nor gross periprosthetic fracture. ??There is marked heterotopic bone formation along the medial and lateral aspects of the left hip arthroplasty. ??There is at least moderate arthritis in the right hip. ??There is right hip CAM-type femoral acetabular impingement. ??There is a 7 mm loose body along the lateral right hip. ??The pubic rami and iliac wings are intact. Procedure Note Luis Burger MD - 02/06/2023 Date: 02/06/2023 3:24 AM Exam: XR HIP ELZA 2V+PELVIS Comparison: Left hip radiography dated 12/17/2011. Technique: Frontal view of the pelvis and hips. Frontal and lateral viewof each hip. History: Fall. Hip pain. Pain down the legs. Findings: There is a left hip arthroplasty without dislocation nor grossperiprosthetic fracture. There is marked heterotopic bone formation alongthe medial and lateral aspects of the left hip arthroplasty. There is atleast moderate arthritis in the right hip. There is right hip CAM-typefemoral acetabular impingement. There is a 7 mm loose body along thelateral right hip. The pubic rami and iliac wings are intact. Impression: 1. Well seated left hip arthroplasty with marked heterotopic boneformation surrounding the left arthroplasty. 2. Right hip CAM-type femoral acetabular impingement. Moderate toadvanced arthritis right hip. Referred By: Interpreted By: Luis Burger MD, 02/06/2023 3:32 AM us Amauri Hammond MD GENERAL IMAGING Final Result * CT CHEST+ABD+PEL WO CON (02/06/2023 3:06 AM CDT) Anatomical Region Laterality Modality Chest, Abdomen, Pelvis Computed Tomography 02/06/2023 3:17 AM CDT Impressions 02/06/2023 3:34 AM CDT IMPRESSION: CHEST: 1. ??Nondisplaced right rib fractures 2. ??Enlarged heart and atherosclerotic changes noted 3. ??Numerous bilateral pulmonary nodules are nonspecific. ??This may be related to granulomatous process, bronchiolitis, and no history of neoplasm was provided to suggest metastatic changes. ??If patient does not have significant risk factors or neoplastic process no additional follow-up is necessary, if patient has significant risk factors follow-up in one year could be obtained Abdomen and pelvis: 1. ??Within measurement variability grossly stable appearance to the right adrenal mass with indeterminate Hounsfield units, see prior report 2. ??Cholelithiasis without evidence of cholecystitis 3. ??Persistent ascites and soft tissue edema 4. ??Postsurgical changes, vascular calcifications, degenerative changes, small hernia, hypoattenuating areas in the kidney grossly stable Any follow-up recommendations contained in this report for incidentally detected pulmonary nodules were made according to current recommended guidelines based at a minimum on nodule size AND patient risk factors. Referred By: ?? Interpreted By: Phill Currie MD, 02/06/2023 3:17 AM Narrative 02/06/2023 3:34 AM CDT Indication: Trip and fall, hit head, lying on the floor, rib pain and leg pain, abdominal pain COMPARISON: 12/28/2022 DOSE OPTIMIZATION: This facility uses dose optimization techniques as appropriate to perform exams, including at least one of the following techniques: 1. ??Automated exposure control. 2. ??Adjustment of the mA and/or kV according to patient size (this includes techniques or standardized protocols for targeted exams where dose is matched to the indication/reason for exam, i.e. extremities or head). 3. Use of iterative reconstructive technique. FINDINGS: CHEST: There are postsurgical changes seen in the sternum. ??Coronary arterial calcifications are noted. ??The heart is enlarged. ??No pericardial effusion is seen. ??Minimal pleural thickening is noted. ??No pneumothorax or pleural effusion is seen. ??Mild interstitial prominence is noted. There is ankylosis in the spine. ??Degenerative changes in the spine are noted. ??Old left rib injuries are noted. ??There is an anterior right fifth rib and sixth rib and lateral seventh rib buckling. ??Old rib fractures are seen on the right. Bilateral pulmonary nodules are noted measuring less than 5 mm scattered throughout the lungs. Abdomen and pelvis: There are gallstones in the gallbladder. ??No pericholecystic fluid or wall thickening is seen. ??There is an indeterminant 4.4 x 3.4 cm right adrenal nodule. ??The spleen, liver, pancreas, and right kidney are within normal limits. ??There is nonspecific hyperattenuating area in the left kidney and hypoattenuating areas in the left kidney which are incompletely characterized on today's study. ??Hydronephrosis or hydroureter is not appreciated. There is free fluid in the pelvis and adjacent to the liver tip and spleen. ??There is a periumbilical fat hernia. ??The bladder is distended. The presence of stool, lack of contrast, and lack of distention limit evaluation. ??Gross pericolonic inflammatory changes are not appreciated within the limits of the study. ??There is moderate amount of stool seen throughout the colon. ??No small bowel distention is seen. Atherosclerotic changes of aorta are noted. ??No gross. ??Aortic lymphadenopathy by size criteria is appreciated. Mild soft tissue swelling is seen diffusely versus fluid overload or anasarca. ??Large subcutaneous hyperattenuating area to suggest hematoma is not appreciated. There are degenerative changes in the spine. ??There are postsurgical changes seen in the left hip. ??There are degenerative changes in the pelvis. ??There are stable dystrophic calcifications seen adjacent to the left hip. ??The prominent prostate is again noted. Procedure Note Chaz Currie MD - 02/06/2023 Indication: Trip and fall, hit head, lying on the floor, rib pain and legpain, abdominal pain COMPARISON: 12/28/2022 DOSE OPTIMIZATION: This facility uses dose optimization techniques asappropriate to perform exams, including at least one of the followingtechniques: 1. Automated exposure control. 2. Adjustment of the mA and/or kV according to patient size (thisincludes techniques or standardized protocols for targeted exams wheredose is matched to the indication/reason for exam, i.e. extremities orhead). 3. Use of iterative reconstructive technique. FINDINGS: CHEST: There are postsurgical changes seen in the sternum. Coronaryarterial calcifications are noted. The heart is enlarged. No pericardialeffusion is seen. Minimal pleural thickening is noted. No pneumothoraxor pleural effusion is seen. Mild interstitial prominence is noted. There is ankylosis in the spine. Degenerative changes in the spine arenoted. Old left rib injuries are noted. There is an anterior right fifthrib and sixth rib and lateral seventh rib buckling. Old rib fractures areseen on the right. Bilateral pulmonary nodules are noted measuring less than 5 mm scatteredthroughout the lungs. Abdomen and pelvis: There are gallstones in the gallbladder. Nopericholecystic fluid or wall thickening is seen. There is anindeterminant 4.4 x 3.4 cm right adrenal nodule. The spleen, liver,pancreas, and right kidney are within normal limits. There is nonspecifichyperattenuating area in the left kidney and hypoattenuating areas in theleft kidney which are incompletely characterized on today's study.Hydronephrosis or hydroureter is not appreciated. There is free fluid in the pelvis and adjacent to the liver tip andspleen. There is a periumbilical fat hernia. The bladder is distended. The presence of stool, lack of contrast, and lack of distention limitevaluation. Gross pericolonic inflammatory changes are not appreciatedwithin the limits of the study. There is moderate amount of stool seenthroughout the colon. No small bowel distention is seen. Atherosclerotic changes of aorta are noted. No gross. Aorticlymphadenopathy by size criteria is appreciated. Mild soft tissue swelling is seen diffusely versus fluid overload oranasarca. Large subcutaneous hyperattenuating area to suggest hematoma isnot appreciated. There are degenerative changes in the spine. There are postsurgicalchanges seen in the left hip. There are degenerative changes in thepelvis. There are stable dystrophic calcifications seen adjacent to theleft hip. The prominent prostate is again noted. IMPRESSION: CHEST: 1. Nondisplaced right rib fractures 2. Enlarged heart and atherosclerotic changes noted 3. Numerous bilateral pulmonary nodules are nonspecific. This may berelated to granulomatous process, bronchiolitis, and no history ofneoplasm was provided to suggest metastatic changes. If patient does nothave significant risk factors or neoplastic process no additionalfollow-up is necessary, if patient has significant risk factors follow-upin one year could be obtained Abdomen and pelvis: 1. Within measurement variability grossly stable appearance to the rightadrenal mass with indeterminate Hounsfield units, see prior report 2. Cholelithiasis without evidence of cholecystitis 3. Persistent ascites and soft tissue edema 4. Postsurgical changes, vascular calcifications, degenerative changes,small hernia, hypoattenuating areas in the kidney grossly stable Any follow-up recommendations contained in this report for incidentallydetected pulmonary nodules were made according to current recommendedguidelines based at a minimum on nodule size AND patient risk factors. Referred By: Interpreted By: Phill Currie MD, 02/06/2023 3:17 AM Amauri Hammond MD CT Final Result * CT CERV SPINE WO CON (02/06/2023 3:06 AM CDT) Anatomical Region Laterality Modality Spine Computed Tomogra phy 02/06/2023 3:14 AM CDT Impressions 02/06/2023 3:17 AM CDT Impression: 1. ??No acute osseous abnormality. 2. ??Mild facet arthropathy. ??Bulky anterior degenerative spondylosis. Referred By: ?? Interpreted By: Luis Burger MD, 02/06/2023 3:14 AM Narrative 02/06/2023 3:17 AM CDT Date: 02/06/2023. Exam: CT cervical spine. Comparison: [...] Status post fall hitting head on wall. ??Found after 1.5 hours. Findings: There is normal cervical lordosis. There are no compression fractures nor subluxations. ??There is bulky anterior degenerative spondylosis. ??There are mild foraminal stenoses due to uncovertebral arthropathy at C2-3 and C3-4. ??There is mild facet arthropathy. ??The spinous processes are intact. The prevertebral soft tissues are normal. The lateral masses of C1 and C2 are well aligned. The odontoid process is intact. The atlanto-occipital articulations are intact. ??There is densely calcified disease in the carotid arteries. Procedure Note Luis Burger MD - 02/06/2023 Date: 02/06/2023. Exam: CT cervical spine. Comparison: No comparisons. Technique: Thin section images were obtained of the cervical spine withcoronal and sagittal reconstructions. No IV contrast. A dose loweringtechnique was used for this procedure, which may include, but is notlimited to, dose reduction technique, automated exposure control, the useof iterative reconstruction, and ALARA (As Low As Reasonably Achievable)/Image gently techniques. History: Status post fall hitting head on wall. Found after 1.5 hours. Findings: There is normal cervical lordosis. There are no compressionfractures nor subluxations. There is bulky anterior degenerativespondylosis. There are mild foraminal stenoses due to uncovertebralarthropathy at C2-3 and C3-4. There is mild facet arthropathy. Thespinous processes are intact. The prevertebral soft tissues are normal.The lateral masses of C1 and C2 are well aligned. The odontoid process isintact. The atlanto-occipital articulations are intact. There is denselycalcified disease in the carotid arteries. Impression: 1. No acute osseous abnormality. 2. Mild facet arthropathy. Bulky anterior degenerative spondylosis. Referred By: Interpreted By: Luis Burger MD, 02/06/2023 3:14 AM us Amauri Hammond MD CT Final Result * CT HEAD WO CON (02/06/2023 3:06 AM CDT) Anatomical Region Laterality Modality Head Computed Tomogra phy 02/06/2023 3:11 AM CDT Impressions 02/06/2023 3:14 AM CDT Impression: 1. ??Mild atrophy and white matter disease. 2. ??Decreased density in the left temporal lobe could be from prior infarct, but acute on chronic infarct cannot be excluded. ??Would consider MRI brain for further workup. Referred By: ?? Interpreted By: Luis Burger MD, 02/06/2023 3:11 AM Narrative 02/06/2023 3:14 AM CDT Date: 02/06/2023 3:05 AM Exam: CT HEAD [...] post fall hitting head on the wall. ??Found after 1.5 hours. Findings: There is mild atrophy and white matter disease. There is no intracranial hemorrhage. The [place] white matter differentiation is preserved. There is no hyperdense arterial sign. ??There is decreased density in the left temporal lobe possibly due to some degree of encephalomalacia. ??This could be from a prior infarct, but an acute on chronic infarct is not excluded. ??Overall, would consider MRI brain for further workup. ??There are no masses nor mass effect. The basilar cisterns are preserved. The ventricular system is normal in caliber. The visualized paranasal sinuses and mastoids are clear. The calvarium is intact. Procedure Note Luis Burger MD - 02/06/2023 Date: 02/06/2023 3:05 AM Exam: CT HEAD WO CON Comparison: No comparisons. Technique: Thin section images were obtained from the skull base throughthe vertex without IV contrast infusion. Coronal and sagittalreconstructions. A dose lowering technique was used for this procedure,which may include, but is not limited to, dose reduction technique,automated exposure control, the use of iterative reconstruction, and ALARA(As Low As Reasonably Achievable)/ Image gently techniques. History: Status post fall hitting head on the wall. Found after 1.5hours. Findings: There is mild atrophy and white matter disease. There is nointracranial hemorrhage. The quez[place] white matter differentiation ispreserved. There is no hyperdense arterial sign. There is decreaseddensity in the left temporal lobe possibly due to some degree ofencephalomalacia. This could be from a prior infarct, but an acute onchronic infarct is not excluded. Overall, would consider MRI brain forfurther workup. There are no masses nor mass effect. The basilar cisternsare preserved. The ventricular system is normal in caliber. The visualizedparanasal sinuses and mastoids are clear. The calvarium is intact. Impression: 1. Mild atrophy and white matter disease. 2. Decreased density in the left temporal lobe could be from priorinfarct, but acute on chronic infarct cannot be excluded. Would considerMRI brain for further workup. Referred By: Interpreted By: Luis Burger MD, 02/06/2023 3:11 AM Amauri Hammond MD CT Final Result * CK (CPK) (02/06/2023 1:56 AM CDT) CPK 159 39 - 308 U/L 02/06/2023 3:38 AM CDT [facility] 02/06/2023 1:56 AM CDT us Amauri Hammond MD LABORATORY Final Result [facility] [address] [place] [address], [id number] * TYPE AND SCREEN (02/06/2023 1:56 AM CDT) UNITS ORDERED 6 02/09/2023 7:08 PM CDT [facility] ABO/RH A POSITIVE 02/06/2023 3:13 AM CDT [facility] ANTIBODY SCREEN NEGATIVE 3:13 AM CDT [facility] SAMPLE EXPIRATION 02/09/2023,2359 02/06/2023 2:14 AM CDT [facility] BB COMMENT PATIENT HAS PREVIOUS ANTIBODY HISTORY WITH CURRENT NEGATIVE SCREEN. COMPATIBLE BLOOD WILL TAKE EXTRA TIME TO PREPARE. 02/06/2023 3:13 AM CDT [facility] BLOOD UNIT NUMBER [id number] 02/07/2023 10:32 AM CDT [facility] PRODUCT: PC LEUKOPOOR 02/07/2023 10:32 AM CDT [facility] UNIT DIVISION 00 02/07/2023 10:32 AM CDT [facility] BLOOD UNIT STATUS UNIT RELEASED 02/07/2023 10:32 AM CDT [facility] UNIT ANTIGEN TYPE FyA POS 02/07/2023 10:32 AM CDT [facility] TRANSFUSION STATUS DO NOT ISSUE FOR TRANSFUSION 02/07/2023 10:32 AM CDT [facility] BLOOD UNIT NUMBER [id number] 02/07/2023 10:32 AM CDT [facility] PRODUCT: PC LEUKOPOOR 02/07/2023 10:32 AM CDT [facility] UNIT DIVISION 00 02/07/2023 10:32 AM CDT [facility] BLOOD UNIT STATUS UNIT RELEASED 02/07/2023 10:32 AM CDT [facility] UNIT ANTIGEN TYPE FyA POS 02/07/2023 10:32 AM CDT [facility] TRANSFUSION STATUS DO NOT ISSUE FOR TRANSFUSION 02/07/2023 10:32 AM CDT [facility] BLOOD UNIT NUMBER [id number] 02/07/2023 10:32 AM CDT [facility] PRODUCT: PC LEUKOPOOR 02/07/2023 10:32 AM CDT [facility] UNIT DIVISION 00 02/07/2023 10:32 AM CDT [facility] BLOOD UNIT STATUS UNIT RELEASED 02/07/2023 10:32 AM CDT [facility] UNIT ANTIGEN TYPE FyA POS 02/07/2023 10:32 AM CDT [facility] TRANSFUSION STATUS DO NOT ISSUE FOR TRANSFUSION 02/07/2023 10:32 AM CDT [facility] BLOOD UNIT NUMBER [id number] 02/07/2023 10:32 AM CDT [facility] PRODUCT: PC LEUKOPOOR 02/07/2023 10:32 AM CDT [facility] UNIT DIVISION 00 02/07/2023 10:32 AM CDT [facility] BLOOD UNIT STATUS UNIT RELEASED 02/07/2023 10:32 AM CDT [facility] UNIT ANTIGEN TYPE FyA POS 02/07/2023 10:32 AM CDT [facility] TRANSFUSION STATUS DO NOT ISSUE FOR TRANSFUSION 02/07/2023 10:32 AM CDT [facility] BLOOD UNIT NUMBER [id number] 02/07/2023 10:35 AM CDT [facility] PRODUCT: PC LEUKOPOOR 02/07/2023 10:35 AM CDT [facility] UNIT DIVISION 00 02/07/2023 10:35 AM CDT [facility] BLOOD UNIT STATUS TRANSFUSED,FINAL 02/08/2023 6:47 AM CDT [facility] ISSUE DATE/TIME [id number] 023 6:47 AM CDT [facility] PRODUCT CODE [id number] 02/08/2023 6:47 AM CDT [facility] ABO/RH Unit A POS 02/08/2023 6:47 AM CDT [facility] ABO/RH UNIT ISBT CODE 6200 02/08/2023 6:47 AM CDT [facility] BLOOD UNIT EXPIRATION DATE [id number] 02/08/2023 6:47 AM CDT [facility] UNIT ANTIGEN TYPE FyA NEG 02/07/2023 10:35 AM CDT [facility] TRANSFUSION STATUS OK TO TRANSFUSE 02/07/2023 10:35 AM CDT [facility] CROSSMATCH COMPATIBLE 02/07/2023 10:35 AM CDT [facility] BLOOD UNIT NUMBER [id number] 02/07/2023 10:35 AM CDT [facility] PRODUCT: PC LEUKOPOOR 02/07/2023 10:35 AM CDT [facility] UNIT DIVISION 00 02/07/2023 10:35 AM CDT [facility] BLOOD UNIT STATUS UNIT RELEASED 02/09/2023 7:08 PM CDT [facility] UNIT ANTIGEN TYPE FyA NEG 02/07/2023 10:35 AM CDT [facility] TRANSFUSION STATUS OK TO TRANSFUSE 02/07/2023 10:35 AM CDT [facility] CROSSMATCH COMPATIBLE 02/07/2023 10:35 AM CDT [facility] 02/06/2023 1:56 AM CDT Amauri Hammond MD BLOOD BANK TEST ORDERABLES F inal Result [facility] [address] [place] [address], [id number] * TROPONIN, QUANT (02/06/2023 1:56 AM CDT) Pathologist [facility] TROPONIN I HIGH SENSITIVITY 39 0 - 78 ng/L 02/06/2023 2:35 AM CDT [facility] 02/06/2023 1:56 AM CDT Amauri Hammond MD LABORATORY Final Result [facility] [address] [place] [address], [id number] * (ABNORMAL) COMPREHENSIVE METABOLIC PANEL (02/06/2023 1:56 AM CDT) SODIUM S/P/B 132(L) 136 - 145 MMOL/L 02/06/2023 2:35 AM CDT [facility] POTASSIUM S/P/B 4.3 3.5 - 5.1 MMOL/L 02/06/2023 2:35 AM CDT [facility] CHLORIDE S/P/B 99 98 - 107 MMOL/L 02/06/2023 2:35 AM CDT [facility] CO2 26.2 21.0 - 32.0 MMOL/L 02/06/2023 2:35 AM CDT [facility] GLUCOSE 173(H) 74 - 106 MG/DL 02/06/2023 2:35 AM CDT [facility] BUN 72(H) 7 - 18 MG/DL 02/06/2023 2:35 AM CDT [facility] CREATININE S/P/B 2.81(H) 0.70 - 1.30 MG/DL 02/06/2023 2:35 AM CDT [facility] CALCIUM S/P/B 8.8 8.5 - 10.1 MG/DL 02/06/2023 2:35 AM CDT [facility] BILIRUBIN TOTAL S/P/B 1.2(H) 0.2 - 1.0 MG/DL 02/06/2023 2:35 AM CDT [facility] ALKALINE PHOSPHATASE S/P/B 144(H) 45 - 115 U/L 02/06/2023 2:35 AM CDT [facility] AST 25 15 - 37 U/L 02/06/2023 2:35 AM CDT [facility] ALT 19 16 - 61 U/L 02/06/2023 2:35 AM CDT [facility] TOTAL PROTEIN S/P/B 7.8 6.4 - 8.2 G/DL 02/06/2023 2:35 AM CDT [facility] ALBUMIN S/P/B 3.1(L) 3.4 - 5.0 G/DL 02/06/2023 2:35 AM CDT [facility] ANION GAP 6.8 5.0 - 15.0 MMOL/L 02/06/2023 2:35 AM CDT [facility] OSMOLALITY (CALC) 299 MOSM/KG 023 2:35 AM CDT [facility] Comment:REFERENCE RANGE NOT ESTABLISHED GFR ESTIMATE 24(L) >90 ML/MIN/1. 73 M2 02/06/2023 2:35 AM CDT [facility] GFR NOTES GFR REFERENCE S: 02/06/2023 2:35 AM CDT [facility] Comment: THE ESTIMATED GFR IS CALCULATED [...] ml/min/1.73 m2 G5,KIDNEY FAILURE: <15 ml/min/1.73 m2 02/06/2023 1:56 AM CDT us Amauri Hammond MD LABORATORY Final Result [facility] [address] [place] [address], [id number] * (ABNORMAL) PARTIAL THROMBOPLASTIN TIME,PTT (02/06/2023 1:56 AM CDT) PTT 39.3(H) 25.1 - 36.5 SEC 02/06/2023 2:25 AM CDT [facility] 02/06/2023 1:56 AM CDT Amauri Hammond MD LABORATORY Final Result Performing Organization Address [facility] de Phone Number [facility] [address] [place] [address], [phone] * (ABNORMAL) PROTIME/INR, VENOUS (02/06/2023 1:56 AM CDT) PROTIME 40.7(H) 9.4 - 12.5 SEC 02/06/2023 2:22 AM CDT [facility] INR 3.5(H) 0.8 - 1.1 02/06/2023 2:22 AM CDT [facility] 02/06/2023 1:56 AM CDT Amauri Hammond MD LABORATORY Final Result Performing Organization Address [facility] de Phone Number [facility] [address] [place] [address], [id number] * (ABNORMAL) CBC W/DIFF AUTOMATED (02/06/2023 1:56 AM CDT) WBC 10.96(H) 4.00 - 10.80 x10'3/uL 02/06/2023 2:08 AM CDT [facility] RBC 3.40(L) 4.50 - 6.10 x10'6/uL 02/06/2023 2:08 AM CDT [facility] HGB 7.7(L) 13.0 - 18.0 G/DL 02/06/2023 2:08 AM CDT [facility] HCT 26.5(L) 37.0 - 52.0 % 02/06/2023 2:08 AM CDT [facility] MCV 77.9(L) 78.0 - 100.0 FL 02/06/2023 2:08 AM CDT [facility] MCH 22.6(L) 27.0 - 31.0 PG 02/06/2023 2:08 AM CDT [facility] MCHC 29.1(L) 33.0 - 36.0 G/DL 02/06/2023 2:08 AM CDT [facility] RDW 19.5(H) 11.5 - 14.5 % 02/06/2023 2:08 AM CDT [facility] PLT 166 150 - 350 x10'3/uL 02/06/2023 2:08 AM CDT [facility] MPV 10.8(H) 7.4 - 10.4 FL 02/06/2023 2:08 AM CDT [facility] ABS. NEUTROPHILS 9.24(H) 1.60 - 8.30 x10'3/uL 02/06/2023 2:08 AM CDT [facility] ABS. LYMPHOCYTES 0.68(L) 0.80 - 4.70 x10'3/uL 02/06/2023 2:08 AM CDT [facility] ABS. MONOCYTES 0.77 0.00 - 1.50 x10'3/uL 02/06/2023 2:08 AM CDT [facility] ABS. EOSINOPHILS 0.16 0.00 - 0.40 x10'3/uL 02/06/2023 2:08 AM CDT [facility] ABS. BASOPHILS 0.05 0.00 - 0.20 x10'3/uL 02/06/2023 2:08 AM CDT [facility] ABS. IMMATURE GRANULOCYTES 0.06(H) 0.00 - 0.03 x10'3/uL 02/06/2023 2:08 AM CDT [facility] ABS. NUCLEATED RBC'S 0.00 0.0 x10'3/uL 02/06/2023 2:08 AM CDT [facility] 02/06/2023 1:56 AM CDT Amauri Hammond MD LABORATORY Final Result Performing Organization Address [facility]/State/ZIP Co de Phone Number [facility] [address] [place] [address], [id number] * ECG 12 lead (02/06/2023 1:52 AM CDT) 02/06/2023 1:52 AM CDT Narrative [facility] - 02/06/2023 5:43 AM CDT ?SJS-ED ? Test Date: ?2023-02-06 Pat Name: ? OBIE SIMS ?Department: ?? 70 ? Room: ? EXAM N Gender: ? Male ? 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 : ?1955 ? Requested By: AMAURI HAMMOND Order Number: [id number] ? Reading : ?? Brit Gonzáles ? Measurements Intervals ?[place] ? Rate: ? 89 ? P: ? VT: ? 0 ?QRS: ?-34 QRSD: ? 137 ?T: ?138 QT: ? 384 ? QTc: ?469 ? Interpretive Statements UNCERTAIN REGULAR RHYTHM LEFT AXIS DEVIATION ??[QRS AXIS < -30] INTRAVENTRICULAR CONDUCTION DELAY ??[130+ ms QRS DURATION] POSSIBLE ANTERIOR MYOCARDIAL INFARCTION , PROBABLY OLD [30 ms Q WAVE IN V3/V4, OR R < 0.2 mV IN V4] Procedure Note Brit Gonzáles MD - 02/06/2023 [facility]-ED Test Date: 2023-02-06 Pat Name: OBIE SIMS Department: 70 Room: EXAM N Gender: Male Press Room Supervisor: : 1955 Requested By: AMAURI HAMMOND Order Number: [id number] Sage MD: Brit Gonzáles Measurements Intervals [place] Rate: 89 P: VT: 0 QRS: -34 QRSD: 137 T: 138 QT: 384 QTc: 469 Interpretive Statements UNCERTAIN REGULAR RHYTHM LEFT AXIS DEVIATION [QRS AXIS < -30] INTRAVENTRICULAR CONDUCTION DELAY [130+ ms QRS DURATION] POSSIBLE ANTERIOR MYOCARDIAL INFARCTION , PROBABLY OLD [30 ms Q WAVE IN V3/V4, OR R < 0.2 mV IN V4] us Amauri Hammond MD ECG ORDERABLES Final Result Performing Organization Address City/State/[facility] Co de Phone Number [facility] documented in this encounter Visit Diagnoses Diagnosis Rib fractures- Primary Closed fracture of rib(s), unspecified Fall Unspecified fall Scalp laceration Open wound of scalp, without mention of complication documented in this encounter Admitting Diagnoses Diagnosis Rib fractures Closed fracture of rib(s), unspecified documented in this encounter Administered Medications Inactive Administered Medications - up to 3 most recent administrations Medication Order MAR Action Action Date Dose Rate Site acetaminophen (TYLENOL) 325 MG/10.15ML solution 650 mg 650 mg, Oral, Every 4 hours PRN, Mild pain (Scale 1 - 3), Starting on 02/06/23 at 0447, Until Wed02/09/23 at 1544, Give if unable to swallow tablets/capsules or if patient prefers liquid. Maximum dose of acetaminophen is 4000 mg from all sources in 24 hours. acetaminophen (TYLENOL) suppository 650 mg 650 mg, Rectal, Every 4 hours PRN, Mild pain (Scale 1 - 3), Starting on 02/06/23 at 0447, Until Wed02/09/23 at 1544, Give if unable to take PO. Maximum dose of acetaminophen is 4000 mg from all sources in 24 hours. acetaminophen (TYLENOL) tablet 650 mg 650 mg, Oral, Every 4 hours PRN, Mild pain (Scale 1 - 3), Starting on 02/06/23 at 0447, Until Tu02/09/23 at 1544, Maximum dose of acetaminophen is 4000 mg from all sources in 24 hours. allopurinol (ZYLOPRIM) tablet 300 mg 300 mg, Oral, Daily, First dose on Wed02/07/23 at 0900, Until Discontinued Given 02/09/2023 8:01 AM CDT 300 mg Given 02/08/2023 8:32 AM CDT 300 mg Given 02/07/2023 9:24 AM CDT 300 mg aspirin chewable tablet 81 mg 81 mg, Oral, Daily, First dose on 02/06/23 at 2030, Until Discontinued Given 02/09/2023 8:01 AM CDT 81 mg Given 02/08/2023 8:32 AM CDT 81 mg Given 02/07/2023 9:24 AM CDT 81 mg atorvastatin (LIPITOR) tablet 80 mg 80 mg, Oral, Nightly at bedtime, First dose on 02/06/23 at 2100, Until Discontinued Given 02/08/2023 9:26 PM CDT 80 m g Given 02/07/2023 7:55 PM CDT 80 mg Given 02/06/2023 8:10 PM CDT 80 mg bacitracin ointment Topical, 2 times daily, First dose on 02/06/23 at 0900, Until Discontinued, Apply a light coat to sutures, jose antonio and/or abrasions Given 02/09/2023 8:01 AM CDT Given 02/08/2023 9:31 PM CDT Given 02/08/2023 8:34 AM CDT carvedilol (COREG) tablet 3.125 mg 3.125 mg, Oral, 2 times daily, First dose on 02/06/23 at 2100, Until Discontinued, Take with meal or snack Given 02/09/2023 8:01 AM CDT 3.125 mg Given 02/08/2023 9:27 PM CDT 3.125 mg Given 02/08/2023 8:32 AM CDT 3.125 mg dextrose (GLUTOSE) 40 % oral gel 37.5-75 g 37.5-75 g (15-30 g of dextrose), Oral, As needed, Low blood sugar, Starting on Wed02/08/23 at 2143, Until Wed02/09/23 at 1544, If patient is verbally responsive and taking thickened liquids or oral medications: Blood glucose less than 50 mg/dL - give 30 g of dextrose; repeat until blood glucose reaches 70 mg/dL Blood glucose 50-69 mg/dL - give 15 g of dextrose; repeat until blood glucose reaches 70 mg/dL 37.5 g of glucose gel = 15 g of dextrose dextrose 10 % bolus infusion 125-250 mL 125-250 mL, Intravenous, Administer over 15 Minutes, As needed, Low Blood Sugar, Starting on Wed02/08/23 at 2143, Until Wed02/09/23 at 1544, If patient is verbally responsive and NPO or unable to swallow: Blood glucose less than 50 mg/dL - give 250 mL (25 g) and repeat until blood glucose reaches 70 mg/dL Blood glucose 50-69 mg/dL - give 125 mL (12.5 g) and repeat until blood glucose reaches 70 mg/dL If patient is verbally Unresponsive and NPO or unable to swallow: Blood glucose less than 70 mg/dL - give 250 mL (25 g), repeat until blood glucose reaches 70 mg/dL docusate sodium (COLACE) capsule 100 mg 100 mg, Oral, 2 times daily PRN, Constipation, Starting on Wed02/06/23 at 0447, Until Wed02/09/23 at 1544 Given 02/07/2023 5:14 PM CDT 100 mg fluticasone-salmeterol (ADVAIR HFA) 230-21 MCG/ACT inhaler 2 puff 2 puff, Inhalation, 2 times daily, First dose on Wed02/08/23 at 0815, Until Discontinued, Following administration, rinse mouth with water after use (do not swallow) to reduce risk of oral candidiasis. Given 02/09/2023 6:27 AM CDT 2 puffs Given 02/08/2023 6:48 PM CDT 2 puffs Given 02/08/2023 8:34 AM CDT 2 puffs furosemide (LASIX) tablet 40 mg 40 mg, Oral, 2 times daily, First dose on Wed02/06/23 at 2030, Until Discontinued Given 02/08/2023 8:32 AM CDT 40 mg Given 02/07/2023 5:14 PM CDT 40 mg Given 02/07/2023 9:24 AM CDT 40 mg furosemide (LASIX) tablet 40 mg 40 mg, Oral, 2 times daily, First dose (after last modification) on Wed02/08/23 at 1700, Until Discontinued Given 02/09/2023 8:01 AM CDT 40 mg Given 02/08/2023 4:53 PM CDT 40 mg gabapentin (NEURONTIN) capsule 400 mg 400 mg, Oral, Daily, First dose on Wed02/06/23 at 2030, Until Discontinued Given 02/09/2023 8:01 AM CDT 400 mg Given 02/08/2023 8:32 AM CDT 400 mg Given 02/07/2023 9:23 AM CDT 400 mg gabapentin (NEURONTIN) capsule 800 mg 800 mg, Oral, Nightly, First dose on Wed02/06/23 at 2100, Until Discontinued, 1 tablet in the morning and 2 tablets at night Given 02/08/2023 9:27 PM CDT 800 mg Given 02/07/2023 7:54 PM CDT 800 mg Given 02/06/2023 10:09 PM CDT 800 mg glucagon injection 1 mg 1 mg, Intramuscular, Once as needed, Other, Low blood sugar, 1 dose, Starting on Wed02/08/23 at 2144, Until Wed02/09/23 at 1544, If patient is verbally UNresponsive and no IV access with blood glucose less than 70 mg/dL. Do NOT repeat administration. HYDROcodone-acetaminophen (NORCO) 5-325 MG tablet 1 tablet 1 tablet, Oral, Every 4 hours PRN, Moderate pain (Scale 4 - 7), Starting on 02/06/23 at 0447, Until Wed02/09/23 at 1544, Maximum dose of acetaminophen is 4000 mg from all sources in 24 hours. Given 02/08/2023 9:30 PM CDT 1 tablet Given 02/06/2023 10:10 PM CDT 1 tablet HYDROcodone-acetaminophen (NORCO) 5-325 MG tablet 2 tablet 2 tablet, Oral, Every 6 hours PRN, Severe pain (Scale 8 - 10), Starting on Wed02/07/23 at 1946, Until Wed02/09/23 at 1544, Maximum dose of acetaminophen is 4000 mg from all sources in 24 hours. Given 02/08/2023 4:28 AM CDT 2 tabl ets Given 02/07/2023 8:03 PM CDT 2 tablets insulin glargine (LANTUS) injection 10 Units 10 Units, Subcutaneous, Nightly at bedtime, First dose (after last modification) on Wed02/09/23 at 2100, Until Discontinued insulin glargine (LANTUS) injection 15 Units 15 Units, Subcutaneous, Nightly at bedtime, First dose (after last modification) on 02/08/23 at 2100, Until Discontinued Given 02/08/2023 9:27 PM CDT 15 Units Left Lower Abdomen insulin lispro (HUMALOG) injection 0-12 Units 0-12 Units, Subcutaneous, 4 times daily before meals and nightly, First dose on Wed02/07/23 at 2315, Until Discontinued, From sliding scale insulin subcut med order set - For TDI 60 - 89 units Blood Glucose: (Less than 70: Initiate Hypoglycemia Standing Orders) (70 - 149, administer 0 units) (150 - 199, administer 3 units) (200 - 249, administer 5 units) (250 - 299, administer 7 units) (300 - 349, administer 10 units) (Greater than 349, administer 12 units and Call Physician) Given 02/09/2023 12:10 PM CDT 3 Units Right Arm Given 02/09/2023 7:24 AM CDT 3 Units Ri ght Arm Given 02/08/2023 4:52 PM CDT 7 Units Le ft Arm insulin lispro (HUMALOG) injection 0-8 Units 0-8 Units, Subcutaneous, 4 times daily before meals and nightly, First dose on Wed02/06/23 at 2100, Until Discontinued, From sliding scale insulin subcut [...] administer 8 units and Call Physician) Given 02/07/2023 10:54 PM CDT 8 Units Left Arm Given 02/07/2023 5:14 PM CDT 2 Units Ri ght Arm Given 02/07/2023 11:48 AM CDT 3 Units R ight Arm insulin lispro (HUMALOG) injection 5 Units 5 Units, Subcutaneous, 3 times daily with meals, First dose on 02/08/23 at 1700, Until Discontinued, For sliding scale, activate Sliding Scale Insulin order set. Given 02/09/2023 12:10 PM CDT 5 Units Left Arm Given 02/09/2023 7:25 AM CDT 5 Units Ri ght Arm Given 02/08/2023 4:54 PM CDT 5 Units Le ft Arm lidocaine 4 % patch 1 patch 1 patch, Transdermal, Administer over 12 Hours, Every 24 hours, First dose on 02/06/23 at 0500, Until Discontinued Patch Applied 02/09/2023 4:25 AM CDT 1 patch Chest Patch Applied 02/08/2023 4:28 AM CDT 1 patch Chest Patch Applied 02/07/2023 4:25 AM CDT 1 patch Chest methocarbamol (ROBAXIN) tablet 500 mg 500 mg, Oral, 4 times daily, First dose on 02/06/23 at 0900, Until Discontinued Given 02/09/2023 1:03 PM CDT 500 mg Given 02/09/2023 8:01 AM CDT 500 mg Given 02/08/2023 9:28 PM CDT 500 mg metOLazone (ZAROXOLYN) tablet 2.5 mg 2.5 mg, Oral, Daily, First dose on 02/06/23 at 2030, Until Discontinued Given 02/09/2023 8:01 AM CDT 2.5 mg Given 02/08/2023 8:32 AM CDT 2.5 mg Given 02/07/2023 9:23 AM CDT 2.5 mg morphine injection 2 mg 2 mg, Intravenous, Every 2 hours PRN, Severe pain (Scale 8 - 10), Starting on 02/06/23 at 0447, Until 02/07/23 at 1946 Given 02/06/2023 5:03 AM CDT 2 mg morphine injection 4 mg 4 mg, Intravenous, Once, 1 dose, On 02/06/23 at 0200 Given 02/06/2023 1:53 AM CDT 4 mg normal saline 0.9 % flush 3-10 mL 3-10 mL, Intravenous, Every 8 hours, First dose on 02/06/23 at 0200, Until Discontinued Given 02/09/2023 8:01 AM CDT 3 mLs Given 02/09/2023 3:03 AM CDT 10 mLs Given 02/08/2023 4:56 PM CDT 3 mLs normal saline 0.9 % flush 3-10 mL 3-10 mL, Intravenous, As needed, Line care, Starting on 02/06/23 at 0144, Until 02/09/23 at 1544 Given 02/06/2023 1:56 AM CDT 10 mLs pantoprazole EC (PROTONIX) tablet 40 mg 40 mg, Oral, Daily, First dose on Wed02/06/23 at 2030, Until Discontinued, Do not break, chew, or crush. Given 02/09/2023 8:01 AM CDT 40 mg Given 02/08/2023 8:32 AM CDT 40 mg Given 02/07/2023 9:24 AM CDT 40 mg rOPINIRole (REQUIP) tablet 4 mg 4 mg, Oral, Nightly at bedtime, First dose on 02/06/23 at 2100, Until Discontinued Given 02/08/2023 9:27 PM CDT 4 mg Given 02/07/2023 7:56 PM CDT 4 mg Given 02/06/2023 10:10 PM CDT 4 mg senna-docusate (SENOKOT-S) 8.6-50 MG tablet 1 tablet 1 tablet, Oral, Nightly PRN, Constipation, Starting on Wed02/06/23 at 0447, Until 02/09/23 at 1544, Hold for loose stools. Tablet may be crushed and given via TF. Given 02/07/2023 7:56 PM CDT 1 ta blet sertraline (ZOLOFT) tablet 50 mg 50 mg, Oral, Daily, First dose on 02/06/23 at 2030, Until Discontinued Given 02/09/2023 8:01 AM CDT 50 mg Given 02/08/2023 8:32 AM CDT 50 mg Given 02/07/2023 9:24 AM CDT 50 mg sodium chloride 0.9% bolus infusion 1,000 mL 1,000 mL, Intravenous, Administer over 60 Minutes, Once, 1 dose, On 02/06/23 at 0245 New Bag 02/06/2023 3:43 AM CDT 1,000 mLs sodium chloride 0.9% infusion at 50 mL/hr, Intravenous, Continuous, Starting on 02/06/23 at 0500, Until 02/06/23 at 1516 New Bag 02/06/2023 10:57 AM CDT 50 mL/hr sodium chloride 0.9% infusion at 10 mL/hr, Intravenous, Continuous, Starting on Wed02/07/23 at 0800, Until Mon 23 at 0759, Infuse at TKO rate New Bag 02/07/2023 11:24 AM CDT 250 mLs 10 mL/hr spironolactone (ALDACTONE) tablet 25 mg 25 mg, Oral, Daily, First dose on Wed02/06/23 at 2030, Until Discontinued, HAZARDOUS MEDICATION: wear single chemotherapy approved gloves. Do not open or split. If crushing, use approved closed-system crushing device for hazardous medications. Given 02/09/2023 8:01 AM CDT 25 mg Given 02/08/2023 8:32 AM CDT 25 mg Given 02/07/2023 9:24 AM CDT 25 mg tiotropium (SPIRIVA RESPIMAT) 2.5 MCG/ACT inhaler 2 puff 2 puff, Inhalation, Daily, First dose on Wed02/08/23 at 0900, Until Discontinued, Common canister Given 02/09/2023 6:26 AM CDT 2 puffs Given 02/08/2023 8:35 AM CDT 2 puffs traZODone (DESYREL) tablet 200 mg 200 mg, Oral, Nightly at bedtime, First dose on Wed02/06/23 at 2100, Until Discontinued Given 02/08/2023 9:26 PM CDT 2 00 mg Given 02/07/2023 7:56 PM CDT 200 mg Given 02/06/2023 8:09 PM CDT 200 mg warfarin (COUMADIN) pharmacy to dose placeholder Oral, See admin instructions, Starting on Wed02/06/23 at 1951, Until Wed02/09/23 at 1544, Warfarin Placeholder Only: Do NOT document administrations on this placeholder. (Use medication on OCT to document administrations or contact pharmacy if medication order not entered.) warfarin (COUMADIN) tablet 5 mg 5 mg, Oral, Once, 1 dose, On Wed02/07/23 at 1700, HAZARDOUS MEDICATION: wear single chemotherapy approved gloves. Do not open or split. If crushing, use approved closed-system crushing device for hazardous medications. Given 02/07/2023 5:14 PM CDT 5 mg warfarin (COUMADIN) tablet 5 mg 5 mg, Oral, Once, 1 dose, On Wed02/08/23 at 1700, HAZARDOUS MEDICATION: wear single chemotherapy approved gloves. Do not open or split. If crushing, use approved closed-system crushing device for hazardous medications. Given 02/08/2023 4:53 PM CDT 5 mg warfarin (COUMADIN) tablet 6 mg 6 mg, Oral, Once, 1 dose, On Wed02/09/23 at 1700, HAZARDOUS MEDICATION: wear single chemotherapy approved gloves. Do not open or split. If crushing, use approved closed-system crushing device for hazardous medications. documented in this encounter Active and Recently Administered Medications Times are shown in CDT. Scheduled Medication Order 02/07/2023 02/08/2023 02/09/2023 allopurinol (ZYLOPRIM) tablet 300 mg 300 mg, Oral, Daily, First dose on 02/07/23 at 0900, Until Discontinued 923 (Given - Provider: Uri Velez RN) 08 (Given - Provider: Opal Christianson RN) 08 (Given - Provider: Opal Christianson RN) aspirin chewable tablet 81 mg 81 mg, Oral, Daily, First dose on 02/06/23 at 2030, Until Discontinued 923 (Given - Provider: Uri Velez RN) 08 (Given - Provider: Opal Christianson RN) 08 (Given - Provider: Opal Christianson RN) atorvastatin (LIPITOR) tablet 80 mg 80 mg, Oral, Nightly at bedtime, First dose on 02/06/23 at 2100, Until Discontinued 1954 (Given - Provider: Roseanna Stevens RN) 2125 (Given - Provider: Mignon Silverio, YUNI) bacitracin ointment Topical, 2 times daily, First dose on 02/06/23 at 0900, Until Discontinued, Apply a light coat to sutures, jose antonio and/or abrasions 923 (Given - Provider: Uri Velez RN)1953 (Given - Provider: Roseanna Stevens RN) 34 (Given - Provider: Opal Christianson RN)2130 (Given - Provider: Mignon Silverio, YUNI) 08 (Given - Provider: Opal Christianson RN) carvedilol (COREG) tablet 3.125 mg 3.125 mg, Oral, 2 times daily, First dose on Wed02/06/23 at 2100, Until Discontinued, Take with meal or snack 0924 (Given - Provider: Uri Velez RN)2003 (Given - Provider: Roseanna Stevens, YUNI) 831 (Given - Provider: Opal Christianson RN)2126 (Given - Provider: Mignon Silverio, YUNI) 08 (Given - Provider: Opal Christianson RN) fluticasone-salmeterol (ADVAIR HFA) 230-21 MCG/ACT inhaler 2 puff 2 puff, Inhalation, 2 times daily, First dose on Wed02/08/23 at 0815, Until Discontinued, Following administration, rinse mouth with water after use (do not swallow) to reduce risk of oral candidiasis. 0834 (Given - Provider: Opal Christianson RN)1847 (Given - Provider: Opal Christianson RN) 626 (Given - Provider: Mignon Silverio RN) furosemide (LASIX) tablet 40 mg (CANCELED) 40 mg, Oral, 2 times daily, First dose on 02/06/23 at 2030, Until Discontinued 923 (Given - Provider: Uri Velez RN)1713 (Given - Provider: Uri Velez RN) 08 (Given - Provider: Opal Christianson RN) furosemide (LASIX) tablet 40 mg 40 mg, Oral, 2 times daily, First dose (after last modification) on Wed02/08/23 at 1700, Until Discontinued 165 (Given - Provider: Opal Christianson RN) 08 (Given - Provider: Opal Christianson RN) gabapentin (NEURONTIN) capsule 400 mg 400 mg, Oral, Daily, First dose on Wed02/06/23 at 2030, Until Discontinued 922 (Given - Provider: Uri Velez RN) 08 (Given - Provider: Opal Christianson RN) 08 (Given - Provider: Opal Christianson RN) gabapentin (NEURONTIN) capsule 800 mg 800 mg, Oral, Nightly, First dose on 02/06/23 at 2100, Until Discontinued, 1 tablet in the morning and 2 tablets at night 1953 (Given - Provider: Roseanna Stevens RN) 2126 (Given - Provider: Mignon Silverio, YUNI) insulin glargine (LANTUS) injection 10 Units 10 Units, Subcutaneous, Nightly at bedtime, First dose (after last modification) on Tu02/09/23 at 2100, Until Discontinued insulin glargine (LANTUS) injection 15 Units (CANCELED) 15 Units, Subcutaneous, Nightly at bedtime, First dose (after last modification) on Wed02/08/23 at 2100, Until Discontinued 2126 (Given - Provider: Mignon Silverio RN) insulin lispro (HUMALOG) injection 0-12 Units 0-12 Units, Subcutaneous, 4 times daily before meals and nightly, First dose on Wed02/07/23 at 2315, Until Discontinued, From sliding scale insulin subcut med order set - For TDI 60 - 89 units Blood Glucose: (Less than 70: Initiate Hypoglycemia Standing Orders) (70 - 149, administer 0 units) (150 - 199, administer 3 units) (200 - 249, administer 5 units) (250 - 299, administer 7 units) (300 - 349, administer 10 units) (Greater than 349, administer 12 units and Call Physician) 2304 (Given - Provider: Roseanna Stevens RN - Comment: provider ordered to give 4 additional units to match new perameters. had already given 8 with 4 will be total 12 units) 0831 (Given - Provider: Opal Christianson RN)1218 (Given - Provider: Opal Christianson RN)1652 (Given - Provider: Opal Christianson RN)2157 (Not Given - Provider: Mignon Silverio RN - Reason: Order parameters not met) 0724 (Given - Provider: Opal Christianson RN)1210 (Given - Provider: Opal Christianson RN) insulin lispro (HUMALOG) injection 0-8 Units (CANCELED) 0-8 Units, Subcutaneous, 4 times daily before meals and nightly, First dose on Wed02/06/23 at 2100, Until Discontinued, From sliding scale insulin subcut [...] 349, administer 8 units and Call Physician) 0707 (Not Given - Provider: Ruchi Julien RN - Reason: Order parameters not met)1148 (Given - Provider: Uri Velez RN)1714 (Given - Provider: Uri Velez, YUNI)2254 (Given - Provider: Roseanna Stevens RN - Comment: pt had been eatin ghad to wait to retake, Trauma called about high blood sugar) insulin lispro (HUMALOG) injection 5 Units 5 Units, Subcutaneous, 3 times daily with meals, First dose on Wed02/08/23 at 1700, Until Discontinued, For sliding scale, activate Sliding Scale Insulin order set. 1654 (Given - Provider: Opal Christianson RN) 0725 (Given - Provider: Opal Christianson RN)1210 (Given - Provider: Opal Christianson RN) lidocaine 4 % patch 1 patch 1 patch, Transdermal, Administer over 12 Hours, Every 24 hours, First dose on 02/06/23 at 0500, Until Discontinued 0425 (Patch Applied - Provider: Ruchi Julien RN - Comment: right)1702 (Patch Removed - Provider: Uri Velez RN) 0428 (Patch Applied - Provider: Roseanna Steevns RN)1653 (Patch Removed - Provider: Opal Christianson RN) 0425 (Patch Applied - Provider: Mignon Silverio RN)1344 (Due: Patch Removed - Provider: Automatic Discharge Provider - Comment: Time automatically adjusted from order being discontinued) methocarbamol (ROBAXIN) tablet 500 mg 500 mg, Oral, 4 times daily, First dose on 02/06/23 at 0900, Until Discontinued 0924 (Given - Provider: Uri Velez RN)1240 (Given - Provider: rUi Velez RN)1714 (Given - Provider: Uri Velez RN)1956 (Given - Provider: Roseanna Stevens RN) 0832 (Given - Provider: Opal Christianson RN)1319 (Given - Provider: Opal Christianson RN)1653 (Given - Provider: Opal Christianson RN)2127 (Given - Provider: Mignon Silverio RN) 08 (Given - Provider: Opal Christianson RN)1303 (Given - Provider: Opal Christianson RN) metOLazone (ZAROXOLYN) tablet 2.5 mg 2.5 mg, Oral, Daily, First dose on 02/06/23 at 2030, Until Discontinued 922 (Given - Provider: Uri Velez RN) 0832 (Given - Provider: Opal Christianson RN) 08 (Given - Provider: Opal Christianson RN) normal saline 0.9 % flush 3-10 mL 3-10 mL, Intravenous, Every 8 hours, First dose on 02/06/23 at 0200, Until Discontinued 229 (Not Given - Provider: Ruchi Julien RN - Reason: Other)923 (Given - Provider: Uri Velez RN)171 (Given - Provider: Uri Velez RN) 042 (Given - Provider: Roseanna Stevens RN)0835 (Given - Provider: Opal Christianson RN)165 (Given - Provider: Opal Christianson RN) 0303 (Given - Provider: Mignon Silverio RN)08 (Given - Provider: Opal Christianson RN) pantoprazole EC (PROTONIX) tablet 40 mg 40 mg, Oral, Daily, First dose on 02/06/23 at 2030, Until Discontinued, Do not break, chew, or crush. 923 (Given - Provider: Uri Velez RN) 0832 (Given - Provider: Opal Christianson RN) 08 (Given - Provider: Opal Christianson RN) rOPINIRole (REQUIP) tablet 4 mg 4 mg, Oral, Nightly at bedtime, First dose on 02/06/23 at 2100, Until Discontinued 1955 (Given - Provider: Roseanna Stevens RN) 2126 (Given - Provider: Mignon Silverio RN) sertraline (ZOLOFT) tablet 50 mg 50 mg, Oral, Daily, First dose on 02/06/23 at 2030, Until Discontinued 923 (Given - Provider: Uri Velez RN) 0832 (Given - Provider: Opal Christianson RN) 08 (Given - Provider: Opal Christianson RN) spironolactone (ALDACTONE) tablet 25 mg 25 mg, Oral, Daily, First dose on 02/06/23 at 2030, Until Discontinued, HAZARDOUS MEDICATION: wear single chemotherapy approved gloves. Do not open or split. If crushing, use approved closed-system crushing device for hazardous medications. 923 (Given - Provider: Uri Velez RN) 0832 (Given - Provider: Opal Christianson RN) 08 (Given - Provider: Opal Christianson RN) tiotropium (SPIRIVA RESPIMAT) 2.5 MCG/ACT inhaler 2 puff 2 puff, Inhalation, Daily, First dose on Wed02/08/23 at 0900, Until Discontinued, Common canister 0835 (Given - Provider: Opal Christianson RN) 06 (Given - Provider: Mignon Silverio, YUNI) traZODone (DESYREL) tablet 200 mg 200 mg, Oral, Nightly at bedtime, First dose on 02/06/23 at 2100, Until Discontinued 1955 (Given - Provider: Roseanna Stevens RN) 2125 (Given - Provider: Mignon Silverio, YUNI) warfarin (COUMADIN) pharmacy to dose placeholder(Linked Group 1) Oral, See admin instructions, Starting on 02/06/23 at 1951, Until Wed02/09/23 at 1544, Warfarin Placeholder Only: Do NOT document administrations on this placeholder. (Use medication on OCT to document administrations or contact pharmacy if medication order not entered.) warfarin (COUMADIN) tablet 5 mg (COMPLETED) 5 mg, Oral, Once, 1 dose, On Wed02/07/23 at 1700, HAZARDOUS MEDICATION: wear single chemotherapy approved gloves. Do not open or split. If crushing, use approved closed-system crushing device for hazardous medications. 1713 (Given - Provider: Uri Velez RN) warfarin (COUMADIN) tablet 5 mg (COMPLETED) 5 mg, Oral, Once, 1 dose, On 02/08/23 at 1700, HAZARDOUS MEDICATION: wear single chemotherapy approved gloves. Do not open or split. If crushing, use approved closed-system crushing device for hazardous medications. 1653 (Given - Provider: Opal Christianson, RN) warfarin (COUMADIN) tablet 6 mg 6 mg, Oral, Once, 1 dose, On Wed02/09/23 at 1700, HAZARDOUS MEDICATION: wear single chemotherapy approved gloves. Do not open or split. If crushing, use approved closed-system crushing device for hazardous medications. Continuous Medication Order 02/07/2023 02/08/2023 02/09/2023 sodium chloride 0.9% infusion () at 10 mL/hr, Intravenous, Continuous, Starting on 02/07/23 at 0800, Until Wed02/08/23 at 0759, Infuse at TKO rate 1124 (New Bag - Provider: Uri Velez, YUNI) 0600 (Infusion Stop Time - Provider: Roseanna Stevens, YUNI) PRN Medication Order 02/07/2023 02/08/2023 02/09/2023 acetaminophen (TYLENOL) 325 MG/10.15ML solution 650 mg(Linked Group 2) 650 mg, Oral, Every 4 hours PRN, Mild pain (Scale 1 - 3), Starting on 02/06/23 at 0447, Until Wed02/09/23 at 1544, Give if unable to swallow tablets/capsules or if patient prefers liquid. Maximum dose of acetaminophen is 4000 mg from all sources in 24 hours. acetaminophen (TYLENOL) suppository 650 mg(Linked Group 2) 650 mg, Rectal, Every 4 hours PRN, Mild pain (Scale 1 - 3), Starting on 02/06/23 at 0447, Until Wed02/09/23 at 1544, Give if unable to take PO. Maximum dose of acetaminophen is 4000 mg from all sources in 24 hours. acetaminophen (TYLENOL) tablet 650 mg(Linked Group 2) 650 mg, Oral, Every 4 hours PRN, Mild pain (Scale 1 - 3), Starting on 02/06/23 at 0447, Until Wed02/09/23 at 1544, Maximum dose of acetaminophen is 4000 mg from all sources in 24 hours. albuterol sulfate HFA 108 (90 Base) MCG/ACT inhaler 2 puff 2 puff, Inhalation, Every 4 hours PRN, Wheezing, Shortness of breath, Starting on 02/06/23 at 1951, Until Wed02/09/23 at 1544 dextrose (GLUTOSE) 40 % oral gel 37.5-75 g 37.5-75 g (15-30 g of dextrose), Oral, As needed, Low blood sugar, Starting on Wed02/08/23 at 2143, Until Wed02/09/23 at 1544, If patient is verbally responsive and taking thickened liquids or oral medications: Blood glucose less than 50 mg/dL - give 30 g of dextrose; repeat until blood glucose reaches 70 mg/dL Blood glucose 50-69 mg/dL - give 15 g of dextrose; repeat until blood glucose reaches 70 mg/dL 37.5 g of glucose gel = 15 g of dextrose dextrose 10 % bolus infusion 125-250 mL 125-250 mL, Intravenous, Administer over 15 Minutes, As needed, Low Blood Sugar, Starting on Wed02/08/23 at 2143, Until Wed02/09/23 at 1544, If patient is verbally responsive and NPO or unable to swallow: Blood glucose less than 50 mg/dL - give 250 mL (25 g) and repeat until blood glucose reaches 70 mg/dL Blood glucose 50-69 mg/dL - give 125 mL (12.5 g) and repeat until blood glucose reaches 70 mg/dL If patient is verbally Unresponsive and NPO or unable to swallow: Blood glucose less than 70 mg/dL - give 250 mL (25 g), repeat until blood glucose reaches 70 mg/dL docusate sodium (COLACE) capsule 100 mg 100 mg, Oral, 2 times daily PRN, Constipation, Starting on Wed02/06/23 at 0447, Until Wed02/09/23 at 1544 1714 (Given - Provider: Uri Velez, YUNI) glucagon injection 1 mg 1 mg, Intramuscular, Once as needed, Other, Low blood sugar, 1 dose, Starting on Wed02/08/23 at 2144, Until Wed02/09/23 at 1544, If patient is verbally UNresponsive and no IV access with blood glucose less than 70 mg/dL. Do NOT repeat administration. HYDROcodone-acetaminophen (NORCO) 5-325 MG tablet 1 tablet 1 tablet, Oral, Every 4 hours PRN, Moderate pain (Scale 4 - 7), Starting on 02/06/23 at 0447, Until 02/09/23 at 1544, Maximum dose of acetaminophen is 4000 mg from all sources in 24 hours. 2129 (Given - Provider: Mignon Silverio RN) HYDROcodone-acetaminophen (NORCO) 5-325 MG tablet 2 tablet 2 tablet, Oral, Every 6 hours PRN, Severe pain (Scale 8 - 10), Starting on 02/07/23 at 1946, Until Wed02/09/23 at 1544, Maximum dose of acetaminophen is 4000 mg from all sources in 24 hours. 2002 (Given - Provider: Roseanna Stevens, YUNI) 427 (Given - Provider: Roseanna Stevens, YUNI) normal saline 0.9 % flush 3-10 mL 3-10 mL, Intravenous, As needed, Line care, Starting on 02/06/23 at 0144, Until Wed02/09/23 at 1544 senna-docusate (SENOKOT-S) 8.6-50 MG tablet 1 tablet 1 tablet, Oral, Nightly PRN, Constipation, Starting on 02/06/23 at 0447, Until Wed02/09/23 at 1544, Hold for loose stools. Tablet may be crushed and given via TF. 1955 (Given - Provider: Roseanna Stevens, YUNI) Linked Groups Order Group 1: Pharmacy to dose warfarin (COUMADIN) (CANCELED) Routine, Once, On 02/06/23 at 1952, For 1 occurrence, [facility] INR? 2-3 And warfarin (COUMADIN) pharmacy to dose placeholderJump to med Oral, See admin instructions, Starting on 02/06/23 at 1951, Until Wed02/09/23 at 1544, Warfarin Placeholder Only: Do NOT document administrations on this placeholder. (Use medication on OCT to document administrations or contact pharmacy if medication order not entered.) Group 2: acetaminophen (TYLENOL) tablet 650 mgJump to med 650 mg, Oral, Every 4 hours PRN, Mild pain (Scale 1 - 3), Starting on 02/06/23 at 0447, Until Wed02/09/23 at 1544, Maximum dose of acetaminophen is 4000 mg from all sources in 24 hours. Or acetaminophen (TYLENOL) suppository 650 mgJump to med 650 mg, Rectal, Every 4 hours PRN, Mild pain (Scale 1 - 3), Starting on 02/06/23 at 0447, Until Tu02/09/23 at 1544, Give if unable to take PO. Maximum dose of acetaminophen is 4000 mg from all sources in 24 hours. Or acetaminophen (TYLENOL) 325 MG/10.15ML solution 650 mgJump to med 650 mg, Oral, Every 4 hours PRN, Mild pain (Scale 1 - 3), Starting on 02/06/23 at 0447, Until Tu02/09/23 at 1544, Give if unable to swallow tablets/capsules or if patient prefers liquid. Maximum dose of acetaminophen is 4000 mg from all sources in 24 hours. documented in this encounter Additional Health Concerns Assessment Noted Time PHQ-9 Depression Total Score: 0 12/02/19 22 1:18 PM CDT documented as of this encounter Care Teams Child Therapist Relationship Specialty Start Date End Date Megan Infante MD [address] [place] [id number] PCP - General FAMILY PRACTICE 04/06/16 Amauri Pandey MD [employer] CARDIOVASCULAR DISEASE 04/06/16 12/28/23 Sharmila Davis APRN, RE[employer]ERY [employer] [facility] [id number] [place] [address] NURSE PRACTITIONER 01/04/17 04/03/24 Linda Block MD [address] [facility] [address] [place] [id number] [employer] CLINICAL CARDIAC ELECTROPHYSIOLOGY 02/08/17 04/12/23 Jeff Delgado MD [address] [facility] [address] [place] [phone] Consulting Physician INTERNAL MEDICINE 02/20/19 3 Zaki Ortiz MD [address] [facility] [address] [place] [address] Consulting Physician PULMONARY DISEASE 07/12/19 Concetta Acevedo MD [address] [place] [id number] Surgeon NEUROLOGICAL SURGERY 12/16/22 documented as of this encounter
--- OUTSIDE RECORDS SUMMARY | 2024-09-03 19:10 | XMS_ITS | Encounter Summary ---
Author Organization [facility] Address Formerly [facility], [facility] [place] [address] [place] [address] Care Team Providers Care Tank Truck Driver Name Role Phone Piyush Pandey MD Unavailable Unavailabl e Megan Infante MD Primary Care Provider [phone] Sharmila Davis APRN, DINING CAR STEWARD-C Unavailable Linda Block MD Unavailable [phone] Jeff Grace MD Unavailable Zaki Ortiz MD Unavailable [phone] RomeoConcetta Pond MD Unavailable [phone] Jeff Grace MD Unavailable Brit Gonzáles MD Unavailable Encounter Details Date Type Department Care Team (Late st Contact Info) Description 01/21/2023 Abstract [facility] [address] [place] [phone] Sharmila Davis APRN, DINING CAR STEWARD-C [address] [facility] [address] [place] [address] Social History Tobacco Use Types Packs/Day Years [...] or slept in a custodial (including now)? No 12/28/2022 Sex and Gender [...] PM CDT Inga Moseley RN Active documented as of this encounter Mental Status * Because of a physical, mental, or emotional condition, do you have serious difficulty concentrating, remembering, or making decisions? Answer Entry Date Author Status No 12/28/2022 6:30 PM CDT Inga Moseley RN Active documented in this encounter Plan of Treatment Upcoming Encounters Date Type Department Care Team (Late st Contact Info) Description 09/25/2024 2:00 PM ELECTRICAL CONTROLS ASSEMBLER Appointment [facility] [address] [place] [address] Zayra Powell, STEREOTYPER APPRENTICE [address] [place] [address] 10/16/2024 3:30 PM ELECTRICAL CONTROLS ASSEMBLER [facility] [address] [facility] [place] [address] Brit Gonzáles MD [address] [place], [place] [phone] documented as of this encounter Visit Diagnoses Not on filedocumented in this encounter Additional Health Concerns Assessment Noted Time PHQ-9 Depression Total Score: 0 12/02/19 22 1:18 PM CDT documented as of this encounter Care Teams Tank Truck Driver Relationship Specialty Start Date End Date Megan Infante MD [address] [facility] [place] [phone] PCP - General FAMILY PRACTICE 04/06/16 Piyush Pandey MD [place] Leasing Director CARDIOVASCULAR DISEASE 04/06/16 12/28/23 Sharmila Davis, DANNY, DINING CAR STEWARD-C [address] [phone] NURSE PRACTITIONER 01/04/17 04/03/24 Linda Block MD [address] [address] [place] Leasing Director CLINICAL CARDIAC ELECTROPHYSIOLOGY 02/08/17 04/12/23 Jeff Grace MD [address] [phone] Consulting Physician INTERNAL MEDICINE 02/20/19 3 Zaki Ortiz MD [address] [phone] Consulting Physician PULMONARY DISEASE 07/12/19 Concetta Acevedo MD [address] [place] [address] Surgeon NEUROLOGICAL SURGERY 12/16/22 Jeff Grace MD [address] [place] [address] Consulting Physician INTERNAL MEDICINE 02/11/23 Brit Gonzáles MD [address] [place] [address] Consulting Physician CARDIOVASCULAR DISEASE 12/29/23 documented as of this encounter
--- OUTSIDE RECORDS SUMMARY | 2024-09-03 19:10 | XMS_ITS | Encounter Summary ---
Author Organization [facility] Address Formerly [facility], [address] [facility] [place] [address] [place] [address] Care Team Providers Care Business Administration Professor Name Role Phone Piyush Pandey MD Unavailable Unavailabl e Megan Infante MD Primary Care Provider [phone] Sharmila Davis APRN, HARMONIC ANALYST-C Unavailable Linda Block MD Unavailable [phone] Jeff Grace MD Unavailable Zaki Ortiz MD Unavailable [phone] RomeoConcetta Pond MD Unavailable + [phone] Reason for Visit * Reason Onset Date Comments Other 01/19/2023 Why this appt Fr nadia Encounter Details Date Type Department Care Team ([facility] st Contact Info) Description 01/19/2023 Telephone [facility] [address] [place] [address] Sharmila Davis, DANNY, HARMONIC ANALYST-C [address] [facility] [address] [place] [address] Other (Why this appt Wednesday) Social History Tobacco Use Types Packs/Day Years [...] or slept in a detention (including now)? No 12/28/2022 Sex and Gender [...] Progress Notes * Marcella Freitas RN - 01/19/2023 11:36 AM CDT On 01/06- 2 week hospital f/u was requested; Phoned patient, made aware of above request- Expressed understanding. Also questioning whether he can have my neck surgery ; unaware of scheduled neck surgery- patient will check with surgeon. Will keep appointment for Wednesday * Bethanie Lay - 01/19/2023 11:11 AM CDT VOICEMAIL CALLER: Pt PHONE: [phone] MESSAGE: Pt called inquiring why he has an appt Wednesday (per schedule, he also has one later this month with Dr. Pandey in [place]). HOW HANDLED: Forwarded to Sharmila Davis NP, Katherin nurse. documented in this encounter Plan of Treatment Upcoming Encounters Date Type Department Care Team (Late st Contact Info) Description 09/25/2024 2:00 PM SMALL BATTERY PLATE ASSEMBLER Appointment [facility] [address] [place] [address] Zayra Powell, STICKER MACHINE OPERATOR [address] [place] [phone] 10/16/2024 3:30 PM SMALL BATTERY PLATE ASSEMBLER Office Visit [facility] [address] [place] [phone] Brit Gonzáles MD [address] [place] [address] documented as of this encounter Visit Diagnoses Not on filedocumented in this encounter Additional Health Concerns Assessment Noted Time PHQ-9 Depression Total Score: 0 12/02/19 22 1:18 PM CDT documented as of this encounter Care Teams Business Administration Professor Relationship Specialty Start Date End Date Megan Infante MD [address] [place] [phone] PCP - General FAMILY PRACTICE 04/06/16 Piyush Pandey MD [place] Aircraft Fuselage Framer CARDIOVASCULAR DISEASE 04/06/16 12/28/23 Sharmila Davis APRN, HARMONIC ANALYST-C [address] [place] [address] [place] [address] NURSE PRACTITIONER 01/04/17 04/03/24 Linda Block MD [address] [facility] [address] [place] [address] [place] Aircraft Fuselage Framer CLINICAL CARDIAC ELECTROPHYSIOLOGY 02/08/17 04/12/23 Jeff Grace MD [address]19 [facility] [address] [place] [address] Consulting Physician INTERNAL MEDICINE 02/20/19 3 Zaki Ortiz MD 6[address] [facility] [address] [place] [address] Consulting Physician PULMONARY DISEASE 07/12/19 Concetta Acevedo MD [address] [place] [address] Surgeon NEUROLOGICAL SURGERY 12/16/22 documented as of this encounter
--- OUTSIDE RECORDS SUMMARY | 2024-09-03 19:10 | XMS_ITS | Encounter Summary ---
Author Organization [facility] Address [address] [place] [address]. [place] [address] [place] [address] Care Team Providers Care Epitaxial Reactor Operator Name Role Phone Piyush Pandey MD Unavailable Unavailabl e Megan Infante MD Primary Care Provider [phone] Sharmila Davis APRN, NP-C Unavailable [phone] Linda Block MD Unavailable [phone] Jeff Grace MD Unavailable Zaki Ortiz MD Unavailable [phone] RomeoConcetta Pond MD Unavailable + [phone] Reason for Visit * Reason Onset Date Comments Reschedule 02/01/2023 Encounter Details Date Type Department Care Team (Late st Contact Info) Description 02/01/2023 Telephone [facility] [address] [place] [address] Piyush Pandey MD Reschedule Social History Tobacco Use Types Packs/Day Years [...] or slept in a chcf (including now)? No 12/28/2022 Sex and Gender [...] suspected to have Coronavirus/COVID-19? No / Unsure 01/26/2023 5:16 PM CDT documented as of this encounter Functional [...] Progress Notes * Marcella Freitas RN - 02/01/2023 9:36 AM CDT Due to scheduled change: f/u appointment moved from 02/08 to 03/08 at 3 pm in [place] Phoned patient, agrees to date/time; requested a mailed reminder documented in this encounter Plan of Treatment Upcoming Encounters Date Type Department Care Team (Late st Contact Info) Description 09/25/2024 2:00 PM POWDER COATER Appointment [facility] [address] [place] [address] Zayra Powell, [facility] [address] [place] [address] 10/16/2024 3:30 PM POWDER COATER Office Visit [facility] [address] [place] [phone] Brit Gonzáles MD [address] [place] [address] documented as of this encounter Visit Diagnoses Not on filedocumented in this encounter Additional Health Concerns Assessment Noted Time PHQ-9 Depression Total Score: 0 12/02/19 22 1:18 PM CDT documented as of this encounter Care Teams Epitaxial Reactor Operator Relationship Specialty Start Date End Date Megan Infante MD [address] [facility] [place] [address] PCP - General FAMILY PRACTICE 04/06/16 Piyush Pandey MD [place] Make Up Arranger CARDIOVASCULAR DISEASE 04/06/16 12/28/23 Sharmila Davis APRN, FUR FINISHER TAILOR-C [address] [address] NURSE PRACTITIONER 01/04/17 04/03/24 Linda Block MD [address] [address] [place] Make Up Arranger CLINICAL CARDIAC ELECTROPHYSIOLOGY 02/08/17 04/12/23 Jeff Grace MD [address] [address] Consulting Physician INTERNAL MEDICINE 02/20/19 3 Zaki Ortiz MD 619 [facility] [address] [address] Consulting Physician PULMONARY DISEASE 07/12/19 Concetta Acevedo MD [address] [place] [address] Surgeon NEUROLOGICAL SURGERY 12/16/22 documented as of this encounter
--- OUTSIDE RECORDS SUMMARY | 2024-09-03 19:10 | XMS_ITS | Encounter Summary ---
Author Organization [facility] Address Formerly [facility] [place] [address] [place] [address] Care Team Providers Care Seedling Puller Name Role Phone Piyush Pandey MD Unavailable Unavailabl e Megan Infante MD Primary Care Provider [phone] Sharmila Davis APRN, NP-C Unavailable [phone] Linda Block MD Unavailable [phone] Zaki Ortiz MD Unavailable [phone] Romeo-Concetta Pond MD Unavailable + [phone] Jeff Grace MD Unavailable Encounter Details Date Type Department Care Team (Latest Contact Info) Description 02/16/2023 Travel Social History Tobacco Use Types Packs/Day [...] How often do you attend sabianism or buddhism serv ices? Patient declined 02/16/2023 [...] [facility] - Occupational Stress Questionnaire Answer Date [...] slept in a detention (including now)? Patient refused 02/16/2023 Sex and [...] st Contact Info) Description 09/25/2024 2:00 PM GUSSET RIPPER Appointment [facility] [address] [place] [address] Zayra Powell, RN PLASTIC SURGERY [address] [place] [address] 10/16/2024 3:30 PM GUSSET RIPPER Office Visit [facility] [address] [place] [address] Brit Gonzáles MD [address] [place] [address] documented as of this encounter Goals Goal [...] documented as of this encounter Care Teams Seedling Puller Relationship Specialty Start Date End Date Megan Infante MD [address] [facility] [address] PCP - General FAMILY PRACTICE 04/06/16 Piyush Pandey MD [place] Party Plan Sales Unit Advisor CARDIOVASCULAR DISEASE 04/06/16 12/28/23 Sharmila Davis APRN, ARTILLERY MAINTENANCE SUPERVISOR-C [address] [phone] NURSE PRACTITIONER 01/04/17 04/03/24 Linda Block MD [address] [place] [phone] [place] Party Plan Sales Unit Advisor CLINICAL CARDIAC ELECTROPHYSIOLOGY 02/08/17 04/12/23 Zaki Ortiz MD [address] [place] [phone] Consulting Physician PULMONARY DISEASE 07/12/19 Concetta Acevedo MD [address] [place] [address] Surgeon NEUROLOGICAL SURGERY 12/16/22 Jeff Grace MD [address] [place], [place] [address] Consulting Physician INTERNAL MEDICINE 02/11/23 documented as of this encounter
--- OUTSIDE RECORDS SUMMARY | 2024-09-03 19:10 | XMS_ITS | Encounter Summary ---
Author Organization [facility] Address [facility] [place] [address] [place] [address] Care Team Providers Care Glove Cuffer Name Role Phone Piyush Pandey MD Unavailable Unavailabl e Megan Infante MD Primary Care Provider [phone] Sharmila Davis APRN SENIOR DATA WAREHOUSE DEVELOPER-C Unavailable Linda Block MD Unavailable [phone] Jeff Grace MD Unavailable Zaki Ortiz MD Unavailable [phone] Romeo-Concetta Pond MD Unavailable + [phone] Encounter Details Date Type Department Care Team (Latest Contact Info) Description 01/06/2023 3:15 PM CDT - 01/06/2023 11:59 PM CDT Hospital Encounter [facility] [address] [facility] [place] [address] Brennan Gimenez MD [address] [phone] Discharge Disposition: Home or Self Care (Routine [...] or slept in a penitentiary (including now)? No 12/28/2022 Sex and Gender [...] Assessment Author Status No 12/28/2022 6:30 PM Inga Stewart RN Active documented as of this encounter Mental Status * Because of a physical, mental, or emotional condition, do you have serious difficulty concentrating, remembering, or making decisions? Answer Entry Date Author Status No 12/28/2022 6:30 PM CDT Inga Moseley RN Active documented in this encounter Medications at Time of Discharge albuterol sulfate HFA 108 (90 Base) MCG/ACT inhaler Inhale 2 puffs into the lungs every 4 (four) hours as needed. 11/14/2015 allopurinol 300 MG tablet Take 1 tablet (300 mg total) by mouth daily. 02/17/2019 amoxicillin-clav ulanate (AUGMENTIN) 875-125 MG tablet Take 1 tablet (875 mg total) by mouth every 12 (twelve) hours for 3 days. 6 tablet 01/04/2023 3 aspirin 81 MG chewable tablet Chew 1 [...] mouth as needed for Constipation. furosemide (LASIX) 80 MG tablet Take 1 tablet (80 mg total) by mouth daily for 30 days. 30 tablet 01/04/2023 3 gabapentin (NEURONTIN) 100 MG capsule Take 6 capsules (600 mg total) by mouth daily. 12/14/2022 3 glipiZIDE XL (GLUCOTROL XL) 5 MG 24 hr tablet 2 tablets (10 mg total). 1-2 tablets daily in am 09/29/2022 3 HYDROcodone-acet aminophen (NORCO) 7.5-325 MG tabletIndication s:Chronic Pain Take 1 tablet by mouth 2 (two) times daily as needed. Indications: Chronic Pain 20 tablet 01/04/2023 3 hydrOXYzine (ATARAX) 50 MG tablet Take 1 tablet (50 mg total) by mouth 3 (three) times daily. As needed 10/09/2022 insulin detemir (LEVEMIR FLEXPEN) 100 UNIT/ML PEN Inject into the skin as needed (only uses inslin if he needs it he states). 3 insulin lispro (HUMALOG) 100 UNIT/ML injection (VIAL) Inject 0-8 Units into the skin 4 (four) times daily before meals and nightly. From sliding scale insulin subcut med order set - For TDI 30 - 59 units Blood Glucose: (Less than 70: Initiate Hypoglycemia Standing Orders) (70 - 149, administer 0 units) (150 - 199, administer 2 units) (200 - 249, administer 3 units) (250 - 299, administer 5 units) (300 - 349, administer 7 units) (Greater than 349, administer 8 units and Call Physician) 9.6 mL 01/04/2023 3 isosorbide dinitrate-hydral azine (BIDIL) 20-37.5 MG tablet Take 0.5 tablets by mouth 3 (three) times daily for 30 days. 45 tablet 01/04/2023 3 JARDIANCE 25 MG tablet Take 1 tablet (25 mg total) by mouth daily. 10/31/2022 methocarbamol (ROBAXIN) 500 MG tablet Take 1 tablet (500 mg total) by mouth 3 (three) times daily. 11/20/2022 3 mupirocin (BACTROBAN) 2 % ointment Apply [...] daily. 12/23/2022 warfarin (COUMADIN) 1 MG tablet 2 tablets (2 mg total) daily. As directed 10/22/2022 3 warfarin (COUMADIN) 5 MG tablet 1 tablet (5 mg total) daily. As directed 05/14/2022 3 documented as of this encounter Plan of Treatment Upcoming Encounters Date Type Department Care Team (Late st Contact Info) Description 09/25/2024 2:00 PM PLASTER MOLD MAKER Appointment [facility] [address] [place] [address] Zayra Powell, [facility] [address] [place] [address] 10/16/2024 3:30 PM PLASTER MOLD MAKER Office Visit [facility] [address] [place] [address] Brit Gonzáles MD [address] [place] [address] documented as of this encounter Procedures Procedure Name Priority Date/Time Associated Diagnosis Comments BASIC METABOLIC PANEL Routine 01/06/2023 8:25 AM CDT Hypertensive heart and renal disease with congestive heart failure (CMS/HCC HHS/HCC) COPD (chronic obstructive pulmonary disease) (CMS/HCC HHS/HCC) Diabetes mellitus, type II (CMS/HCC HHS/HCC) CKD (chronic kidney disease), stage III (CMS/HCC HHS/HCC) Hyperlipidemia Portopulmonary hypertension (CMS/HCC HHS/HCC) CBC, AUTO, NO DIFF Routine 01/06/2023 8: 25 AM CDT Hypertensive heart and renal disease with congestive heart failure (CMS/HCC HHS/HCC) COPD (chronic obstructive pulmonary disease) (CMS/HCC HHS/HCC) Diabetes mellitus, type II (CMS/HCC HHS/HCC) CKD (chronic kidney disease), stage III (CMS/HCC HHS/HCC) Hyperlipidemia Portopulmonary hypertension (CMS/HCC HHS/HCC) documented in this encounter Results * (ABNORMAL) CBC, AUTO, NO DIFF (01/06/2023 8:25 AM CDT) WBC 8.75 4.00 - 10.80 x10'3/uL 01/06/2023 3:41 PM CDT [facility] RBC 3.65(L) 4.50 - 6.10 x10'6/uL 01/06/2023 3:41 PM CDT [facility] HGB 8.4(L) 13.0 - 18.0 G/DL 01/06/2023 3:41 PM CDT [facility] HCT 30.4(L) 37.0 - 52.0 % 01/06/2023 3:41 PM CDT [facility] MCV 83.3 78.0 - 100.0 FL 01/06/2023 3:41 PM CDT [facility] MCH 23.0(L) 27.0 - 31.0 PG 01/06/2023 3:41 PM CDT [facility] MCHC 27.6(L) 33.0 - 36.0 G/DL 01/06/2023 3:41 PM CDT [facility] RDW 18.8(H) 11.5 - 14.5 % 01/06/2023 3:41 PM CDT [facility] PLT 163 150 - 350 x10'3/uL 01/06/2023 3:41 PM CDT [facility] MPV 10.7(H) 7.4 - 10.4 FL 01/06/2023 3:41 PM CDT [facility] 01/06/2023 8:25 AM CDT us Brennan Gimenez MD LABORATORY Final Result [facility] [address] [place] [address], * (ABNORMAL) BASIC METABOLIC PANEL (01/06/2023 8:25 AM CDT) SODIUM S/P/B 131(L) 136 - 145 MMOL/L 01/06/2023 4:13 PM CDT [facility] POTASSIUM S/P/B 4.3 3.6 - 5.0 MMOL/L 01/06/2023 4:13 PM CDT [facility] CHLORIDE S/P/B 95(L) 98 - 107 MMOL/L 01/06/2023 4:13 PM [facility] CO2 31.5 21.0 - 32.0 MMOL/L 01/06/2023 4:13 PM [facility] GLUCOSE 159(H) 70 - 99 MG/DL 01/06/2023 4:13 PM [facility] Comment: FASTING GLUCOSE 100 TO 125 MG/DL IS CONSISTENT WITH IMPAIRED FASTING GLUCOSE. FASTING GLUCOSE >125 MG/DL IS CONSISTENT WITH DIABETES. RANDOM GLUCOSE >200 MG/DL WITH HYPERGLYCEMIC SYMPTOMS IS CONSISTENT WITH DIABETES. PER ADA GUIDELINES BUN 47(H) 7 - 18 MG/DL 01/06/2023 4:13 PM [facility] CREATININE S/P/B 2.04(H) 0.70 - 1.30 MG/DL 01/06/2023 4:13 PM [facility] CALCIUM S/P/B 9.3 8.5 - 10.1 MG/DL 01/06/2023 4:13 PM [facility] ANION GAP 4.5(L) 5 - 15 MMOL/L 01/06/2023 4:13 PM [facility] OSMOLALITY (CALC) 288 MOSM/KG 023 4:13 PM [facility] GFR ESTIMATE 35(L) >90 ML/MIN/1. 73 M2 01/06/2023 4:13 PM [facility] GFR NOTES GFR REFERENCE S: 01/06/2023 4:13 PM [facility] Comment: THE ESTIMATED GFR [...] ml/min/1.73 m2 G5,KIDNEY FAILURE: <15 ml/min/1.73 m2 01/06/2023 8:25 AM CDT Brennan Gimenez MD LABORATORY Final Result [facility] [address] [place] [address], documented in this encounter Visit Diagnoses Diagnosis Hypertensive heart and renal disease with congestive heart failure ([facility])- Primary Unspecified hypertensive heart and kidney disease with heart failure and with chronic kidney disease stage I through stage IV, or unspecified COPD (chronic obstructive pulmonary disease) ([facility]) Chronic airway obstruction, not elsewhere classified Diabetes mellitus, type II ([facility]) Type II or unspecified type diabetes mellitus without mention of complication, not stated as uncontrolled CKD (chronic kidney disease), stage III ([facility]) Chronic kidney disease, Stage III (moderate) Hyperlipidemia Other and unspecified hyperlipidemia Decreased GFR Nonspecific abnormal results of kidney function study Portopulmonary hypertension ([facility]) Portal hypertension documented in this encounter Additional Health Concerns Assessment Noted Time PHQ-9 Depression Total Score: 0 12/02/19 22 1:18 PM CDT documented as of this encounter Care Teams Glove Cuffer Relationship Specialty Start Date End Date Megan Infante MD [address] [place] [address] PCP - General FAMILY PRACTICE 04/06/16 Piyush Pandey MD [place] Devops Engineer CARDIOVASCULAR DISEASE 04/06/16 12/28/23 Sharmila Davis, ELECTRONIC WARFARE TECHNICAL, SENIOR DATA WAREHOUSE DEVELOPER-C [address] [facility] [address] [place] [address] NURSE PRACTITIONER 01/04/17 04/03/24 Linda Block MD [address] [facility] [address] [place] [phone] [place] Devops Engineer CLINICAL CARDIAC ELECTROPHYSIOLOGY 02/08/17 04/12/23 Jeff Grace MD [address] [facility] [address] [place] [phone] Consulting Physician INTERNAL MEDICINE 02/20/19 3 Zaki Ortiz MD [address] [facility] [address] [place] [phone] Consulting Physician PULMONARY DISEASE 07/12/19 Concetta Acevedo MD [address] [place] [address] Surgeon NEUROLOGICAL SURGERY 12/16/22 documented as of this encounter
--- OUTSIDE RECORDS SUMMARY | 2024-09-03 19:10 | XMS_ITS | Encounter Summary ---
Author Organization [facility] Address [address] [place] [address]. [place] [address] [place] [address] Care Team Providers Care Lacing Cutter Name Role Phone Piyush Pandey MD Unavailable Unavailabl e Megan Infante MD Primary Care Provider [phone] Sharmila Davis APRN, NP-C Unavailable Linda Block MD Unavailable [phone] Jeff Grace MD Unavailable Zaki Ortiz MD Unavailable [phone] Romeo-Concetta Pond MD Unavailable + [phone] Encounter Details Date Type Department Care Team (Late st Contact Info) Description 01/19/2023 3:42 PM CDT - 01/19/2023 11:59 PM CDT Hospital Encounter [facility] [address] [place] [address] Megan Infante MD [address] [place] [phone] Discharge Disposition: Home or Self Care (Routine [...] in a long term (including now)? No 12/28/2022 Sex and Gender [...] PM SKYLART Inga Moseley RN Active * Because of [...] total) by mouth daily. 10/31/2022 losartan (COZAAR) 25 MG tablet Take 1 tablet (25 mg total) by mouth daily. 01/13/2023 3 methocarbamol (ROBAXIN) 500 MG tablet Take [...] st Contact Info) Description 09/25/2024 2:00 PM CARDIOLOGY TECHNOLOGIST Appointment [facility] [address] [place] [address] Zayra Powell, [facility] [address] [place] [address] 10/16/2024 3:30 PM CARDIOLOGY TECHNOLOGIST Office Visit [facility] [address] [place] [address] Brit Gonzáles MD [address] [place] [address] documented as of this encounter Procedures Procedure Name Priority Date/Time Associated Diagnosis Comments PROTHROMBIN TIME, VENOUS Routine 01/19/2023 3:10 PM CDT A-fib (CMS/HCC HHS/HCC) documented in this encounter Results * (ABNORMAL) PROTIME/INR, VENOUS (01/19/2023 3:10 PM CDT) PROTIME 93.5(H) 9.4 - 12.5 SEC 01/19/2023 4:39 PM CDT [facility] INR 8.0(HH) 0.8 - 1.0 01/19/2023 4:39 PM CDT [facility] Comment: CRITICAL VALUE CALLED TO CALLED TO LA NENA MILLER RN 01.19.23 AT 1629 BY SAS READ BACK AND VERIFIED 01/19/2023 3:10 PM CDT us Megan Infante MD LABORATORY Final Result [facility] [place], [place] [address]RUST [phone] documented in this encounter Visit Diagnoses Diagnosis A-fib (CMS/HCC HHS/HCC) Atrial fibrillation documented in this encounter Additional Health Concerns Assessment Noted Time PHQ-9 Depression Total Score: 0 12/02/19 22 1:18 PM CDT documented as of this encounter Care Teams Lacing Cutter Relationship Specialty Start Date End Date Megan Infante MD [address] [place] [address] PCP - General FAMILY PRACTICE 04/06/16 Piyush Pandey MD [place] Dump Grounds Checker CARDIOVASCULAR DISEASE 04/06/16 12/28/23 Sharmila Davis APRN, COMPOSITION ROLL MAKER AND CUTTER-C [address] [phone] NURSE PRACTITIONER 01/04/17 04/03/24 Linda Block MD [address] [phone] [place] Dump Grounds Checker CLINICAL CARDIAC ELECTROPHYSIOLOGY 02/08/17 04/12/23 Jeff Grace MD [address] [phone] Consulting Physician INTERNAL MEDICINE 02/20/19 3 Zaki Ortiz MD [address] [phone] Consulting Physician PULMONARY DISEASE 07/12/19 Concetta Acevedo MD [address] [place] [id number] Surgeon NEUROLOGICAL SURGERY 12/16/22 documented as of this encounter
--- OUTSIDE RECORDS SUMMARY | 2024-09-03 19:10 | XMS_ITS | Encounter Summary ---
Author Organization [facility] Address [facility]ly [facility] [facility] [place] [address] [place] [address] Care Team Providers Care Abrasive Worker Name Role Phone Piyush Pandey MD Unavailable Unavailabl e Megan Infante MD Primary Care Provider [phone] Sharmila Davis APRN, NP-C Unavailable [phone] Linda Block MD Unavailable [phone] Jeff Grace MD Unavailable Zaki Ortiz MD Unavailable [phone] Romeo-Concetta Pond MD Unavailable + [phone] Encounter Details Date Type Department Care Team (Latest Contact Info) Description 01/26/2023 Travel Social History Tobacco Use Types Packs/Day [...] or slept in a usp (including now)? No 12/28/2022 Sex and Gender [...] st Contact Info) Description 09/25/2024 2:00 PM SORTER OPERATOR Appointment [facility] [address] [place] [address] Zayra Powell, [facility] [address] [place] [address] 10/16/2024 3:30 PM SORTER OPERATOR Office Visit [facility] [address] [place] [phone] Brit Gonzáles MD [address] [place] [address] documented as of this encounter Visit Diagnoses Not on filedocumented in this encounter Additional Health Concerns Assessment Noted Time PHQ-9 Depression Total Score: 0 12/02/19 22 1:18 PM CDT documented as of this encounter Care Teams Abrasive Worker Relationship Specialty Start Date End Date Megan Infante MD [address] [place] [phone] PCP - General FAMILY PRACTICE 04/06/16 Piyush Pandey MD [place] Architectural Wood Model Maker CARDIOVASCULAR DISEASE 04/06/16 12/28/23 Sharmila Davis, FILLING MACHINE SET UP MECHANIC, SUPPLIER QUALITY ENGINEER-C [address] [phone] NURSE PRACTITIONER 01/04/17 04/03/24 Linda Block MD [address] [phone] [place] [employer] Wood Model Maker CLINICAL CARDIAC ELECTROPHYSIOLOGY 02/08/17 04/12/23 Jeff Grace MD [address] [phone] Consulting Physician INTERNAL MEDICINE 02/20/19 3 Zaki Ortiz MD [address] [phone] Consulting Physician PULMONARY DISEASE 07/12/19 Concetta Acevedo MD [address] [place] [phone] Surgeon NEUROLOGICAL SURGERY 12/16/22 documented as of this encounter
--- OUTSIDE RECORDS SUMMARY | 2024-09-03 19:10 | XMS_ITS | Encounter Summary ---
Author Organization [facility] Address [facility] [place] [address] [place] [address] Care Team Providers Care Independent Beauty Consultant Name Role Phone Piyush Pandey MD Unavailable Unavailabl e Megan Infante MD Primary Care Provider [phone] Sharmila Davis APRN, NP-C Unavailable [phone] Linda Block MD Unavailable [phone] Jeff Grace MD Unavailable Zaki Ortiz MD Unavailable [phone] RomeoConcetta Pond MD Unavailable + [phone] Reason for Visit * Reason Comments Medical Problem Encounter Details Date Type Department Care Team (Late st Contact Info) Description 01/26/2023 5:16 PM CDT - 01/26/2023 7:55 PM T Emergency [facility] [address] [facility] [place] [address] Uri Babb, DO [address] [place], [place] [address] Medical Problem Discharge Disposition: Home or Self Care (Routine [...] PM CDT documented as of this encounter Last Filed Vital Signs Vital Sign Reading Time Taken Comments Blood Pressure 107/53 01/26/2023 7:30 PM CDT Pulse 101 01/26/2023 7:30 PM CDT Temperature 36.9 ??C (98.4 ??F) 01/26/2023 5:26 PM CD T Respiratory Rate 18 01/26/2023 7:30 PM CDT Oxygen Saturation 92% 01/26/2023 7:30 PM CDT Inhaled Oxygen Concentration - - Weight 99.8 kg (220 lb) 01/26/2023 5:26 PM CDT Height 167.6 cm (5' 6 ) 01/26/2023 5:26 PM CDT Body Mass Index 35.51 01/26/2023 5:26 PM CDT documented in this encounter Functional [...] Moseley RN Active documented in this encounter Discharge Instructions * Discharge Instructions* Uri Babb DO - 01/26/2023 7:14 PM CDT Please refer to the attached discharge instructions regarding your diagnosis and treatment recommendations. Please take all your home medications as directed. Please follow up with Dr Infante as needed Please return to the emergency department if: Worsening pain with new numbness, color change or weakness New or worsening chest pain or shortness of breath Lightheadedness or fainting Fevers (greater than 100.4 F) that are not controlled with over the counter fever medications You know yourself better than anyone. If you become concerned about your progress or believe your condition is worsening please return to the emergency department or call the nurses hotline at for further recommendations. * Attachments The following attachments cannot be sent through Care Everywhere. * Dependent Edema Discharge Instructions (Rwandan) documented in this encounter Medications at Time of Discharge albuterol sulfate HFA 108 (90 Base) MCG/ACT inhaler Inhale 2 puffs into the lungs every 4 (four) hours as needed. 11/14/2015 allopurinol 300 MG tablet Take 1 tablet (300 mg total) by mouth daily. 02/17/2019 amLODIPine (NORVASC) 2.5 MG tablet Take 1 tablet (2.5 mg total) by mouth daily. 3 aspirin 81 MG chewable tablet Chew [...] and Call Physician) 9.6 mL 01/04/2023 3 JARDIANCE 25 MG tablet Take 1 tablet (25 mg total) by mouth daily. 10/31/2022 losartan (COZAAR) 25 MG tablet Take 1 tablet (25 mg total) by mouth daily. 01/13/2023 3 metFORMIN (GLUCOPHAGE) 500 MG tablet Take 1 tablet (500 mg total) by mouth 2 (two) times daily with meals. 3 methocarbamol (ROBAXIN) 500 MG tablet Take [...] tablet (20 mEq total) by mouth daily. 3 rOPINIRole (REQUIP) 4 MG tablet Take 1 [...] 05/14/2022 3 documented as of this encounter ED Notes * Daniella Valadez RN - 01/26/2023 5:30 PM CDT Patient comes over here after seeing Dr. De La Rosa in the office. He states that he was over there today trying to get clearance for a neck surgery and that she thought he needed to get some fluid off and come here. His right leg is wrapped and weeping. * Uri Babb, DO - 01/26/2023 5:19 PM CDT Chief Complaint Chief Complaint Patient presents with Medical Problem History of Present Illness 67 year old male with a history of CAD, COPD, aortic stenosis s/p bioprosthetic 2013 with CHF (lastEF 37% on 12/29/22 per records review) afib on warfarin, DM, pulmonary hypertension and CKD presenting from Dr Infante's office due to concern for worsening fluid overload. Was last admitted on 12/29 for CHF exacerbation at [facility] and discharged just under 1mth ago on 01/04 at which time he was started on isosorbide dinitrate, Augmentin for cellulitis and insulin and had his lasix increased to 80mg daily.Last seen in clinic 01/22/23 with stable discharge weight of 220lbs. Presented today to Dr Ballard office for clearance for cervical spine surgery and complained that he had continued bilateral upper leg discomfort that is causing him issues getting around at home. Hestates this has been going one since before he was last admitted though has seemed to be worse since discharge. Has home PT/OT and had a session he felt went well with his OT today. Does not complainof any increasing dyspnea or new chest pain. Has been taking his 80mg lasix as prescribed and states that this morning his weight was stable at 220lbs. Told to come here for transfer to [place] due to his continued pain in his legs and retained fluid. Medical History ALLERGIES: Review of patient's allergies indicates: No Known Allergies MEDICATIONS: Prior to Admission medications Medication Sig Start Date End Date Taking? Authorizing Provider amLODIPine (NORVASC) 2.5 MG tablet Take 1 tablet (2.5 mg total) by mouth daily. Yes Default HistoryGenericprovider metFORMIN (GLUCOPHAGE) 500 MG tablet Take 1 tablet (500 mg total) by mouth 2 (two) times daily withmeals. Yes Default History Genericprovider metOLazone (ZAROXOLYN) 2.5 MG tablet Take 1 tablet (2.5 mg total) by mouth daily. Yes Default History Genericprovider potassium chloride CR (KLOR-CON M) 20 MEQ tablet Take 1 tablet (20 mEq total) by mouth daily. Yes Default History Genericprovider albuterol sulfate HFA 108 (90 Base) MCG/ACT [...] needs it he states). Default History Genericprovider insulin lispro (HUMALOG) 100 UNIT/ML injection (VIAL) Inject 0-8 Units into the skin 4 (four) timesdaily before meals and nightly. From sliding scale [...] 349, administer 8 units and Call Physician) Patient not taking: Reported on 01/22/2023 01/04/23 02/03/23 Juanpablo Herman MD JARDIANCE 25 MG tablet Take 1 tablet (25 mg total) by mouth daily. 10/31/22 Default History Genericprovider losartan (COZAAR) 25 MG tablet Take 1 tablet (25 mg total) by mouth daily. 01/13/23 Default History Genericprovider methocarbamol (ROBAXIN) 500 MG tablet Take 1 tablet (500 mg total) by mouth 3 (three) times daily. 11/20/22 Default History Genericprovider mupirocin (BACTROBAN) 2 % ointment Apply 1 Application topically 2 (two) times daily. 12/14/22 Default History Genericprovider pantoprazole EC 40 MG tablet Take 1 tablet (40 mg total) by mouth daily. Doc [facility] Abstract rOPINIRole (REQUIP) 4 MG [...] chronic heart failure, unspecified heart failure type ([facility]/HCC) Anxiety Aortic valve stenosis Arthritis Asthma, mild persistent 04/06/2021 Atrial fibrillation ([facility]/HCC) s/p PVI/[facility] 10/2015 Bilateral leg pain Carotid [...] valve 2013 SOB (shortness of breath) Stroke ([facility]) Varicose veins of bilateral lower extremities [...] Systems Review of Systems Constitutional: Negative for chills and fever. HENT: Negative for congestion, rhinorrhea, sore throat and tinnitus. Respiratory: Negative for cough, chest tightness, shortness of breath and stridor. Cardiovascular: Positive for leg swelling. Negative for chest pain. Gastrointestinal: Positive for abdominal distention. Negative for abdominal pain, blood in stool, diarrhea, nausea and vomiting. Genitourinary: Negative for dysuria, hematuria and urgency. Musculoskeletal: Negative for back pain, joint swelling and myalgias. Skin: Negative for pallor and rash. Neurological: Negative for dizziness, syncope, weakness, light-headedness, numbness and headaches. Physical Exam Filed Vitals: 01/26/23 1726 01/26/23 1800 01/26/23 1830 01/26/23 1930 BP: 116/84 102/52 124/72 107/53 Pulse: (!) 102 (!) 101 (!) 102 (!) 101 Resp: Temp: 98.4 ??F (36.9 ??C) TempSrc: Temporal SpO2: 94% 94% 91% 92% Weight: 99.8 kg (220 lb) Height: 5' 6 (1.676 m) Physical Exam Vitals and nursing note reviewed. Constitutional: General: He is not in acute distress. Appearance: Normal appearance. He is obese. He is not toxic-appearing. HENT: Head: Normocephalic and atraumatic. Nose: Nose normal. Mouth/Throat: Mouth: Mucous membranes are moist. Pharynx: Oropharynx is clear. Eyes: Extraocular Movements: Extraocular movements intact. Pupils: Pupils are equal, round, and reactive to light. Cardiovascular: Rate and Rhythm: Tachycardia present. Pulses: Normal pulses. Comments: +1 edema bilateral lower extremities up through his abdomen Pulmonary: Effort: Pulmonary effort is normal. Breath sounds: Normal breath sounds. No wheezing. Abdominal: General: Abdomen is flat. Palpations: Abdomen is soft. Tenderness: There is no abdominal tenderness. Musculoskeletal: General: Normal range of motion. Cervical back: Normal range of motion. Skin: General: Skin is warm and dry. Findings: Erythema present. Neurological: General: No focal deficit present. Mental Status: He is alert and oriented to person, place, and time. Sensory: No sensory deficit. Motor: No weakness. Coordination: Coordination normal. Diagnostic Studies / Procedures ELECTROCARDIOGRAMS: Results for orders placed or performed during the hospital encounter of 01/26/23 ECG 12 lead Narrative [place] [address] [place] [address] Test Date: 2023-01-26 Pat Name: OBIE SIMS Department: 3 Room: EXAM 707 Gender: Male Wind Tunnel Technician: GERMAINE: 1955 Requested By: URI BABB Order Number: [id number] Reading MD: Measurements Intervals [place] Rate: 99 P: -10 WY: 232 QRS: -18 QRSD: 137 T: 123 QT: 350 QTc: 449 Interpretive Statements SINUS RHYTHM WITH FIRST DEGREE AV BLOCK WITH OCCASIONAL VENTRICULAR PREMATURE COMPLEXES INTRAVENTRICULAR CONDUCTION DELAY LABORATORY STUDIES: Results for orders placed or performed during the hospital encounter of 01/26/23 CBC W/DIFF AUTOMATED Result Value Ref Range WBC 8.91 4.00 - 10.80 x10'3/uL RBC 3.82 (L) 4.50 - 6.10 x10'6/uL HGB 8.6 (L) 13.0 - 18.0 G/DL HCT 29.9 (L) 37.0 - 52.0 % MCV 78.3 78.0 - 100.0 FL MCH 22.5 (L) 27.0 - 31.0 PG MCHC 28.8 (L) 33.0 - 36.0 G/DL RDW 18.6 (H) 11.5 - 14.5 % PLT 186 150 - 350 x10'3/uL MPV 10.9 (H) 7.4 - 10.4 FL CBC COMMENT NORMAL REFERENCE RANGE NOT ESTABLISHED FOR THE PROPORTIONAL LEUKOCYTE DIFFERENTIAL. NEUTROPHILS 67.0 % LYMPHOCYTES 15.2 % MONOCYTES 14.1 % EOSINOPHILS 2.8 % BASOPHILS 0.7 % IMMATURE GRANS 0.2 % NRBC 0.0 % ABS. NEUTROPHILS 5.97 1.60 - 8.30 x10'3/uL ABS. LYMPHOCYTES 1.35 0.80 - 4.70 x10'3/uL ABS. MONOCYTES 1.26 0.00 - 1.50 x10'3/uL ABS. EOSINOPHILS 0.25 0.00 - 0.40 x10'3/uL ABS. BASOPHILS 0.06 0.00 - 0.20 x10'3/uL ABS. IMMATURE GRANULOCYTES 0.02 0.00 - 0.03 x10'3/uL ABS. NUCLEATED RBC'S 0.00 0.00 x10'3/uL PLT MORPH. NORMAL RBC MORPHOLOGY 1+ COMPREHENSIVE METABOLIC PANEL Result Value Ref Range SODIUM S/P/B 133 (L) 136 - 145 MMOL/L POTASSIUM S/P/B 4.5 3.5 - 5.1 MMOL/L CHLORIDE S/P/B 95 (L) 98 - 107 MMOL/L CO2 28.0 21.0 - 32.0 MMOL/L GLUCOSE 127 (H) 70 - 99 MG/DL BUN 36 (H) 6 - 24 MG/DL CREATININE S/P/B 2.13 (H) 0.70 - 1.30 MG/DL CALCIUM S/P/B 9.5 8.4 - 10.5 MG/DL BILIRUBIN TOTAL S/P/B 1.1 (H) 0.2 - 1.0 MG/DL ALKALINE PHOSPHATASE S/P/B 161 (H) 45 - 115 U/L AST 27 15 - 37 U/L ALT 14 (L) 16 - 63 U/L TOTAL PROTEIN S/P/B 8.0 6.4 - 8.2 G/DL ALBUMIN S/P/B 3.3 (L) 3.4 - 5.0 G/DL ANION GAP 10.0 5.0 - 15.0 MMOL/L OSMOLALITY (CALC) 286 MOSM/KG GFR ESTIMATE 33 (L) >89 ML/MIN/1.73 M2 GFR NOTES GFR REFERENCES: TROPONIN, QUANT Result Value Ref Range TROPONIN I HIGH SENSITIVITY 40 0 - 76 ng/L PRO-BRAIN NATRIURETIC PEPTIDE Result Value Ref Range PRO-B TYPE NATRIURETIC PEPTIDE 3,539 (H) <125 PG/ML IMAGING STUDIES XR CHEST PORTABLE Final Result by User, [id number] (01/27 1816) CLINICAL INDICATION: 67-YEAR-OLD MALE. FLUID OVERLOAD, LOWER [...] consolidation. Low volume lung film therefore the basis or not visualized. IMPRESSION: 1. Stable cardiomegaly. 2. No radiographic evidence of acute cardiac pulmonary process. 3. Stable chest. Referred By: Interpreted By: Precious Nelson DO, 01/26/2023 6:12 PM ED Course / Medical Decision Making Medical Decision Making 67-year-old male presenting with bilateral LE pain HR 102 with otherwise unremarkable vitals. +1 edema bilateral lower extremities up through his abdomen with an otherwise unremarkable physicalexam. Ddx including but not limited to: fluid overload, CHF exacerbation, generalized weakness, deconditioning Orders: cbc, cmp, troponin, ecg, cxr, BNP Workup as above discussed with the patient who is agreeable with this plan. ED Course as of 01/26/232019Jan 26, [address] Infante prior to patient's arrival - sent from office for admission to [facility] due to concern for worsening fluid overload. [RT] 1730 SpO2: 94 % 94% on RA with RR 20 [RT] 1750 ECG 12 lead Rate 99. WY 232. QRS 137. QTc 406.Sinus rhythm with occasional PVC and prolonged WY interval. [RT] 1751 Home dose of norco ordered for bilateral leg and back pain [RT] 1758 WBC: 8.91 [RT] 1759 HGB(!): 8.6 Stable chronic anemia [RT] 1759 PLT: 186 [RT] 1801 XR CHEST PORTABLE Per my review - Stable cardiomegaly with no new gross infiltrates or pulmonary congestion. [RT] 1815 TROPONIN I HIGH SENSITIVITY: 40 Stable troponin [RT] 1815 PRO-B TYPE NATRIURETIC PEPTIDE(!): 3,539 Elevated but improved from 4wks ago [RT] 1816 CREATININE S/P/B(!): 2.13 Near baseline CKD - baseline 1.8-2 [RT] 1816 SODIUM S/P/B(!): 133 Chronic mild hyponatremia [RT] 1907 Resting comfortably in bed. O2 sat 91 to 94% on room air with heart rate of 101. Discussed his overall improved work-up today compared to previous visit and message out to Dr Infante regarding need for admission. Continues to complain of bilateral LE pain which we discussed his continued Semora use and need to continue his fluid offloading with his lasix and PT/OT as tolerated. Does not want acute rehab or assisted placement - discussed admission for placement and rehab given his otherwise stable medical workup today. States he is ambulatory at home and was able to do OT today, does not want to go to acute care again. Overall comfortable with plan for discharge home and follow up with Dr Infante and cardiology as needed. [RT] 1939 Patient asking to go at this time. Have not heard back from Dr. Infante and patient understandsthis. Will follow up as needed. [RT] ED Course User Index [RT] Uri Babb DO Clinical Impression Bilateral lower extremity pain (Primary) History of CHF (congestive heart failure) Anasarca Disposition: Discharge Uri Babb DO 01/26/232019 documented in this encounter Plan of Treatment Upcoming Encounters Date Type Department Care Team (Late st Contact Info) Description 09/25/2024 2:00 PM SPEECH LANGUAGE PATHOLOGIST ASSISTANT Appointment [facility] [address] [place] [address] Zayra Powell FNP [address] [place] [address] 10/16/2024 3:30 PM SPEECH LANGUAGE PATHOLOGIST ASSISTANT Office Visit [facility] [id number] [place] [phone] Brit Gonzáles MD [address] [place] [address] documented as of this encounter Procedures Procedure Name Priority Date/Time Associated Diagnosis Comments XR CHEST PORTABLE STAT 01/26/2023 6:1 3 PM CDT PRO-BRAIN NATRIURETIC PEPTIDE STAT 01/26/2023 5:39 PM CDT COMPREHENSIVE METABOLIC PANEL STAT 01/26/2023 5:39 PM CDT CBC W/DIFF AUTOMATED STAT 01/26/2023 5:39 PM CDT TROPONIN, QUANT STAT 01/26/2023 5:39 PM CDT ECG 12-LEAD Routine 01/26/2023 5:33 PM CDT documented in this encounter Results * XR CHEST PORTABLE (01/26/2023 6:13 PM CDT) Anatomical Region Laterality Modality Chest Radiographic Stephie ging 01/26/2023 6:12 PM CDT Impressions 01/26/2023 6:15 PM CDT IMPRESSION: 1. ??Stable cardiomegaly. 2. ??No radiographic evidence of acute cardiac pulmonary process. 3. ??Stable chest. Referred By: ?? Interpreted By: Precious Nelson DO, 01/26/2023 6:12 PM Narrative 01/26/2023 6:15 PM CDT CLINICAL INDICATION: 67-YEAR-OLD MALE. ??FLUID OVERLOAD, LOWER EXTREMITY SWELLING. ??SHORTNESS OF BREATH. TECHNIQUE: Portable upright AP view of the chest. ??17:34 COMPARISON: Upright PA and lateral views of the chest 12/28/2022 FINDINGS: Stable cardiomegaly. ??No change in intact median sternotomy wire sutures. ??Stable prosthetic aortic valve. ??Pulmonary vascular distribution is unremarkable. The lungs are clear of infiltrates. ??No pleural effusion or consolidation. ??Low volume lung film therefore the basis or not visualized. Procedure Note Precious Nelson MD - 01/26/2023 CLINICAL INDICATION: 67-YEAR-OLD MALE. FLUID OVERLOAD, LOWER EXTREMITY SWELLING. SHORTNESS OFBREATH. TECHNIQUE: Portable upright AP view of the chest. 17:34 COMPARISON: Upright PA and lateral views of the chest 12/28/2022 FINDINGS: Stable cardiomegaly. No change in intact median sternotomy wire sutures.Stable prosthetic aortic valve. Pulmonary vascular distribution isunremarkable. The lungs are clear of infiltrates. No pleural effusion or consolidation.Low volume lung film therefore the basis or not visualized. IMPRESSION: 1. Stable cardiomegaly. 2. No radiographic evidence of acute cardiac pulmonary process. 3. Stable chest. Referred By: Interpreted By: Precious Nelson DO, 01/26/2023 6:12 PM us Uri Babb DO GENERAL IMAGING Final Re sult * (ABNORMAL) PRO-BRAIN NATRIURETIC PEPTIDE (01/26/2023 5:39 PM CDT) PRO-B TYPE NATRIURETIC PEPTIDE 3,539(H) <125 PG/ML 01/26/2023 6:06 PM CDT [facility] Comment: CUT POINTS ESTABLISHED BY [...] OF 89% AND 72% FOR ACUTE CHF. 01/26/2023 5:39 PM CDT Urisajan Babb DO LABORATORY Final Re sult Performing Organization Address City/[facility]/ZIP Co de Phone Number [facility] [address] [place] [address], * TROPONIN, QUANT (01/26/2023 5:39 PM CDT) TROPONIN I HIGH SENSITIVITY 40 0 - 76 ng/L 01/26/2023 6:06 PM CDT [facility] 01/26/2023 5:39 PM CDT Uri Kaylene Leocy DO LABORATORY Final Re sult Performing Organization Address City/[facility]/ZIP Co de Phone Number [facility] [address] [place] [address], * (ABNORMAL) COMPREHENSIVE METABOLIC PANEL (01/26/2023 5:39 PM CDT) SODIUM S/P/B 133(L) 136 - 145 MMOL/L 01/26/2023 6:06 PM CDT [facility] POTASSIUM S/P/B 4.5 3.5 - 5.1 MMOL/L 01/26/2023 6:06 PM T [facility] CHLORIDE S/P/B 95(L) 98 - 107 MMOL/L 01/26/2023 6:06 PM T [facility] CO2 28.0 21.0 - 32.0 MMOL/L 01/26/2023 6:06 PM T [facility] GLUCOSE 127(H) 70 - 99 MG/DL 01/26/2023 6:06 PM [facility] Comment: FASTING GLUCOSE 100 TO 125 MG/DL IS CONSISTENT WITH IMPAIRED FASTING GLUCOSE. FASTING GLUCOSE >125 MG/DL IS CONSISTENT WITH DIABETES. RANDOM GLUCOSE >200 MG/DL WITH HYPERGLYCEMIC SYMPTOMS IS CONSISTENT WITH DIABETES. PER ADA GUIDELINES BUN 36(H) 6 - 24 MG/DL 01/26/2023 6:06 PM T [facility] CREATININE S/P/B 2.13(H) 0.70 - 1.30 MG/DL 01/26/2023 6:06 PM T [facility] CALCIUM S/P/B 9.5 8.4 - 10.5 MG/DL 01/26/2023 6:06 PM [facility] BILIRUBIN TOTAL S/P/B 1.1(H) 0.2 - 1.0 MG/DL 01/26/2023 6:06 PM [facility] Comment: THIS ASSAY IS NOT RECOMMENDED FOR PATIENTS UNDERGOING TREATMENT WITH ELTROMBOPAG DUE TO THE POTENTIAL FOR FALSELY ELEVATED RESULTS. ALKALINE PHOSPHATASE S/P/B 161(H) 45 - 115 U/L 01/26/2023 6:06 PM T [facility] AST 27 15 - 37 U/L 01/26/2023 6:06 PM T [facility] ALT 14(L) 16 - 63 U/L 01/26/2023 6:06 PM [facility] TOTAL PROTEIN S/P/B 8.0 6.4 - 8.2 G/DL 01/26/2023 6:06 PM T [facility] ALBUMIN S/P/B 3.3(L) 3.4 - 5.0 G/DL 01/26/2023 6:06 PM CDT [facility] ANION GAP 10.0 5.0 - 15.0 MMOL/L 01/26/2023 6:06 PM CDT [facility] OSMOLALITY (CALC) 286 MOSM/KG 023 6:06 PM CDT [facility] Comment:REFERENCE RANGE NOT ESTABLISHED GFR ESTIMATE 33(L) >89 ML/MIN/1. 73 M2 01/26/2023 6:06 PM CDT [facility] GFR NOTES GFR REFERENCE S: 01/26/2023 6:06 PM CDT [facility] Comment: THE ESTIMATED GFR IS [...] ml/min/1.73 m2 G5,KIDNEY FAILURE: <15 ml/min/1.73 m2 01/26/2023 5:39 PM CDT us Uri Babb DO LABORATORY Final Re sult [facility] [address] [place] [address], * (ABNORMAL) CBC W/DIFF AUTOMATED (01/26/2023 5:39 PM CDT) WBC 8.91 4.00 - 10.80 x10'3/uL 01/26/2023 5:52 PM CDT [facility] RBC 3.82(L) 4.50 - 6.10 x10'6/uL 01/26/2023 5:52 PM CDT [facility] HGB 8.6(L) 13.0 - 18.0 G/DL 01/26/2023 5:52 PM CDT [facility] HCT 29.9(L) 37.0 - 52.0 % 01/26/2023 5:52 PM CDT [facility] MCV 78.3 78.0 - 100.0 FL 01/26/2023 5:52 PM CDT [facility] MCH 22.5(L) 27.0 - 31.0 PG 01/26/2023 5:52 PM CDT [facility] MCHC 28.8(L) 33.0 - 36.0 G/DL 01/26/2023 5:52 PM CDT [facility] RDW 18.6(H) 11.5 - 14.5 % 01/26/2023 5:52 PM CDT [facility] PLT 186 150 - 350 x10'3/uL 01/26/2023 5:52 PM CDT [facility] MPV 10.9(H) 7.4 - 10.4 FL 01/26/2023 5:52 PM CDT [facility] CBC COMMENT NORMAL REFERENCE RANGE NOT ESTABLISHED FOR THE PROPORTIONAL LEUKOCYTE DIFFERENTIAL. 01/26/2023 5:52 PM CDT [facility] NEUTROPHILS % 67.0 % 01/26/2023 6:01 PM CDT [facility] LYMPHOCYTES % 15.2 % 01/26/2023 6:01 PM CDT [facility] MONOCYTES % 14.1 % 01/26/2023 6:01 PM CDT [facility] EOSINOPHILS % 2.8 % 01/26/2023 6:01 PM CDT [facility] BASOPHILS % 0.7 % 01/26/2023 6:01 PM CDT [facility] IMMATURE GRANS % 0.2 % 01/27/20 6:01 PM CDT [facility] NRBC 0.0 % 01/26/2023 6:01 PM CDT [facility] ABS. NEUTROPHILS 5.97 1.60 - 8.30 x10'3/uL 01/26/2023 6:01 PM CDT [facility] ABS. LYMPHOCYTES 1.35 0.80 - 4.70 x10'3/uL 01/26/2023 6:01 PM CDT [facility] ABS. MONOCYTES 1.26 0.00 - 1.50 x10'3/uL 01/26/2023 6:01 PM CDT [facility] ABS. EOSINOPHILS 0.25 0.00 - 0.40 x10'3/uL 01/26/2023 6:01 PM CDT [facility] ABS. BASOPHILS 0.06 0.00 - 0.20 x10'3/uL 01/26/2023 6:01 PM CDT [facility] ABS. IMMATURE GRANULOCYTES 0.02 0.00 - 0.03 x10'3/uL 01/26/2023 6:01 PM CDT [facility] ABS. NUCLEATED RBC'S 0.00 0.00 x10'3/uL 01/26/2023 6:01 PM CDT [facility] PLT MORPH. NORMAL 01/26/2023 6:01 PM CDT [facility] RBC MORPHOLOGY 1+ 01/26/2023 6:01 PM CDT [facility] Comment:HYPOCHROMASIA 01/26/2023 5:39 PM CDT us Uri Babb DO LABORATORY Final Re sult [facility] [address] [place] [address], * ECG 12 lead (01/26/2023 5:33 PM CDT) 01/26/2023 5:33 PM CDT Narrative [facility] - 01/27/2023 8:23 PM CDT ? [facility] ?[address] [place], [place] ??[address] ? Test Date: ?2023-01-26 Pat Name: ? OBIE SIMS ?Department: ?? 3 ? Room: ? EXAM 707 Gender: ? Male ? Wind Tunnel Technician: ?? : ?1955 ? Requested By: URI HOLLEY Order Number: [id number] ? Reading MD: ?? Sharon Willis ? Measurements Intervals ?[place] ? Rate: ? 99 ? P: ?-10 W[place]: ? 232 ?QRS: ?-18 QRSD: ? 137 ?T: ?123 QT: ? 350 ? QTc: ?449 ? Interpretive Statements SINUS RHYTHM WITH FIRST DEGREE AV BLOCK WITH OCCASIONAL VENTRICULAR PREMATURE COMPLEXES INTRAVENTRICULAR CONDUCTION DELAY DATA QUALITY MAY AFFECT INTERPRETATION Procedure Note Sharon Willis MD - 01/27/[address] [place] [address] Test Date: 2023-01-26 Pat Name: OBIE SIMS Department: 3 Room: [place] [address] Gender: Male Wind Tunnel Technician: : 1955 Requested By: URI BABB Order Number: [id number] Reading MD: Sharon Willis Measurements Intervals [place] Rate: 99 P: -10 WY: 232 QRS: -18 QRSD: 137 T: 123 QT: 350 QTc: 449 Interpretive Statements SINUS RHYTHM WITH FIRST DEGREE AV BLOCK WITH OCCASIONAL VENTRICULARPREMATURE COMPLEXES INTRAVENTRICULAR CONDUCTION DELAY DATA QUALITY MAY AFFECT INTERPRETATION us Uri Babb DO ECG ORDERABLES Final Re sult [facility] documented in this encounter Visit Diagnoses Diagnosis Bilateral lower extremity pain- Primary Pain in limb History of CHF (congestive heart failure) Personal history of other diseases of circulatory system Anasarca Edema documented in this encounter Administered Medications Inactive Administered Medications - up to 3 most recent administrations Medication Order MAR Action Action Date Dose Rate Site HYDROcodone-acetaminophen (NORCO) 7.5-325 MG tablet 1 tablet 1 tablet, Oral, Once, 1 dose, On Wed01/26/23 at 1800, MEDICATION FOR TAKE HOME Given 01/26/2023 6:15 PM CDT 1 tablet documented in this encounter Active and Recently Administered Medications Times are shown in CDT. Scheduled Medication Order 01/24/2023 01/25/2023 01/26/2023 HYDROcodone-acetaminophen (NORCO) 7.5-325 MG tablet 1 tablet (COMPLETED) 1 tablet, Oral, Once, 1 dose, On Wed01/26/23 at 1800, MEDICATION FOR TAKE HOME 1815 (Given - Provid er: Beata Estrada RN) documented in this encounter Additional Health Concerns Assessment Noted Time PHQ-9 Depression Total Score: 0 12/02/19 22 1:18 PM CDT documented as of this encounter Care Teams Independent Beauty Consultant Relationship Specialty Start Date End Date Megan Infante MD [address] [place] [address] PCP - General FAMILY PRACTICE 04/06/16 Piyush Pandey MD Pana Fiber Artist CARDIOVASCULAR DISEASE 04/06/16 12/28/23 Sharmila Davis, GAS OPERATIONS ANALYST, PRACTICE ADVISOR-C [address] [place] [id number] [place] [phone] NURSE PRACTITIONER 01/04/17 04/03/24 Linda Block MD [address] [address] Pana Fiber Artist CLINICAL CARDIAC ELECTROPHYSIOLOGY 02/08/17 04/12/23 Jeff Grace MD [address] [phone] Consulting Physician INTERNAL MEDICINE 02/20/19 3 Zaki Ortiz MD [address] [facility] [address] [place] [address] [phone] Consulting Physician PULMONARY DISEASE 07/12/19 Concetta Acevedo MD [address] [place] [address] Surgeon NEUROLOGICAL SURGERY 12/16/22 documented as of this encounter
--- OUTSIDE RECORDS SUMMARY | 2024-09-03 19:10 | XMS_ITS | Encounter Summary ---
Author Organization [facility] Address [address] [place] [address]. [place] [address] [place] [address] Care Team Providers Care Bridge/Structure Inspection Team Leader Name Role Phone Piyush Pandey MD Unavailable Unavailabl e Megan Infante MD Primary Care Provider [phone] Sharmila Davis APRN, NP-C Unavailable [phone] Linda Block MD Unavailable [phone] Jeff Grace MD Unavailable Zaki Ortiz MD Unavailable [phone] Romeo-Concetta Pond MD Unavailable + [phone] Encounter Details Date Type Department Care Team (Late st Contact Info) Description 01/12/2023 Orders Only [facility] [address] [place] [address] Megan Infante MD [address] [place] [address] Social History Tobacco Use Types [...] or slept in a half-way (including now)? No 12/28/2022 Sex and Gender [...] st Contact Info) Description 09/25/2024 2:00 PM GAS INSPECTOR Appointment [facility] [address] [place] [address] Zayra Powell, PRINTING FILM STRIPPER [address] [place] [address] 10/16/2024 3:30 PM GAS INSPECTOR Office Visit [facility] [address] [place] [address] Brit Gonzáles MD [address] [place] [address] documented as of this encounter Results * (ABNORMAL) COMPREHENSIVE METABOLIC PANEL (01/12/2023 11:30 AM CDT) SODIUM S/P/B 135(L) 136 - 145 MMOL/L 01/12/2023 12:42 PM CDT [facility] POTASSIUM S/P/B 4.5 3.5 - 5.1 MMOL/L 01/12/2023 12:42 PM CDT [facility] CHLORIDE S/P/B 97(L) 98 - 107 MMOL/L 01/12/2023 12:42 PM CDT [facility] CO2 28.7 21.0 - 32.0 MMOL/L 01/12/2023 12:42 PM CDT [facility] GLUCOSE 229(H) 70 - 99 MG/DL 01/12/2023 12:42 PM CDT [facility] Comment: FASTING GLUCOSE 100 TO 125 MG/DL IS CONSISTENT WITH IMPAIRED FASTING GLUCOSE. FASTING GLUCOSE >125 MG/DL IS CONSISTENT WITH DIABETES. RANDOM GLUCOSE >200 MG/DL WITH HYPERGLYCEMIC SYMPTOMS IS CONSISTENT WITH DIABETES. PER ADA GUIDELINES BUN 38(H) 6 - 24 MG/DL 01/12/2023 12:42 PM CDT [facility] CREATININE S/P/B 1.86(H) 0.70 - 1.30 MG/DL 01/12/2023 12:42 PM CDT [facility] CALCIUM S/P/B 9.1 8.4 - 10.5 MG/DL 01/12/2023 12:42 PM CDT [facility] BILIRUBIN TOTAL S/P/B 0.9 0.2 - 1.0 MG/DL 01/12/2023 12:42 PM CDT [facility] Comment: THIS ASSAY IS NOT RECOMMENDED FOR PATIENTS UNDERGOING TREATMENT WITH ELTROMBOPAG DUE TO THE POTENTIAL FOR FALSELY ELEVATED RESULTS. ALKALINE PHOSPHATASE S/P/B 169(H) 45 - 115 U/L 01/12/2023 12:42 PM CDT [facility] AST 22 15 - 37 U/L 01/12/2023 12:42 PM CDT [facility] ALT 33 16 - 63 U/L 01/12/2023 12:42 PM CDT [facility] TOTAL PROTEIN S/P/B 7.5 6.4 - 8.2 G/DL 01/12/2023 12:42 PM CDT [facility] ALBUMIN S/P/B 3.2(L) 3.4 - 5.0 G/DL 01/12/2023 12:42 PM CDT [facility] ANION GAP 9.3 5.0 - 15.0 MMOL/L 01/12/2023 12:42 PM CDT [facility] OSMOLALITY (CALC) 296 MOSM/KG 023 12:42 PM CDT [facility] Comment:REFERENCE RANGE NOT ESTABLISHED GFR ESTIMATE 39(L) >89 ML/MIN/1. 73 M2 01/12/2023 12:42 PM CDT [facility] GFR NOTES GFR REFERENCE S: 01/12/2023 12:42 PM CDT [facility] Comment: THE ESTIMATED GFR IS [...] ml/min/1.73 m2 G5,KIDNEY FAILURE: <15 ml/min/1.73 m2 01/12/2023 11:3 0 AM CDT Megan Infante MD LABORATORY Final Result [facility] [address] [place] [address], * (ABNORMAL) CBC W/DIFF AUTOMATED (01/12/2023 11:30 AM CDT) WBC 8.45 4.00 - 10.80 x10'3/uL 01/12/2023 12:30 PM CDT [facility] RBC 3.69(L) 4.50 - 6.10 x10'6/uL 01/12/2023 12:30 PM CDT [facility] HGB 8.4(L) 13.0 - 18.0 G/DL 01/12/2023 12:30 PM CDT [facility] HCT 29.7(L) 37.0 - 52.0 % 01/12/2023 12:30 PM CDT [facility] MCV 80.5 78.0 - 100.0 FL 01/12/2023 12:30 PM CDT [facility] MCH 22.8(L) 27.0 - 31.0 PG 01/12/2023 12:30 PM CDT [facility] MCHC 28.3(L) 33.0 - 36.0 G/DL 01/12/2023 12:30 PM CDT [facility] RDW 18.5(H) 11.5 - 14.5 % 01/12/2023 12:30 PM CDT [facility] PLT 206 150 - 350 x10'3/uL 01/12/2023 12:30 PM CDT [facility] MPV 11.2(H) 7.4 - 10.4 FL 01/12/2023 12:30 PM CDT [facility] CBC COMMENT NORMAL REFERENCE RANGE NOT ESTABLISHED FOR THE PROPORTIONAL LEUKOCYTE DIFFERENTIAL. 01/12/2023 12:30 PM CDT [facility] NEUTROPHILS % 72.7 % 01/12/2023 1:04 PM CDT [facility] LYMPHOCYTES % 13.0 % 01/12/2023 1:04 PM CDT [facility] MONOCYTES % 10.9 % 01/12/2023 1:04 PM CDT [facility] EOSINOPHILS % 2.2 % 01/12/2023 1:04 PM CDT [facility] BASOPHILS % 0.7 % 01/12/2023 1:04 PM CDT [facility] IMMATURE GRANS % 0.5 % 01/13/20 1:04 PM CDT [facility] NRBC 0.0 % 01/12/2023 1:04 PM CDT [facility] ABS. NEUTROPHILS 6.14 1.60 - 8.30 x10'3/uL 01/12/2023 1:04 PM CDT [facility] ABS. LYMPHOCYTES 1.10 0.80 - 4.70 x10'3/uL 01/12/2023 1:04 PM CDT [facility] ABS. MONOCYTES 0.92 0.00 - 1.50 x10'3/uL 01/12/2023 1:04 PM CDT [facility] ABS. EOSINOPHILS 0.19 0.00 - 0.40 x10'3/uL 01/12/2023 1:04 PM CDT [facility] ABS. BASOPHILS 0.06 0.00 - 0.20 x10'3/uL 01/12/2023 1:04 PM CDT [facility] ABS. IMMATURE GRANULOCYTES 0.04(H) 0.00 - 0.03 x10'3/uL 01/12/2023 1:04 PM CDT [facility] ABS. NUCLEATED RBC'S 0.00 0.00 x10'3/uL 01/12/2023 1:04 PM CDT [facility] PLT MORPH. NORMAL 01/12/2023 1:04 PM CDT [facility] RBC MORPHOLOGY 1+ 01/12/2023 1:04 PM CDT [facility] Comment:HYPOCHROMASIA 01/12/2023 11:3 0 AM CDT Megan Infante MD LABORATORY Final Result [facility] [address] [place] [address], documented in this encounter Visit Diagnoses Diagnosis CHF (congestive heart failure) ([facility])- Primary Congestive heart failure, unspecified documented in this encounter Additional Health Concerns Assessment Noted Time PHQ-9 Depression Total Score: 0 12/02/19 22 1:18 PM CDT documented as of this encounter Care Teams Bridge/Structure Inspection Team Leader Relationship Specialty Start Date End Date Megan Infante MD [address] [place] [address] PCP - General FAMILY PRACTICE 04/06/16 Piyush Pandey MD [place] Basket Hand Braider CARDIOVASCULAR DISEASE 04/06/16 12/28/23 Sharmila Davis, INDUSTRIAL ENGINEERING DIRECTOR, TARIFF PUBLISHING AGENT-C [address] [phone] NURSE PRACTITIONER 01/04/17 04/03/24 Linda Block MD [address] [phone] Lena Basket Hand Braider CLINICAL CARDIAC ELECTROPHYSIOLOGY 02/08/17 04/12/23 Jeff Grace MD [address] [phone] Consulting Physician INTERNAL MEDICINE 02/20/19 3 Zaki Ortiz MD [address] [phone] Consulting Physician PULMONARY DISEASE 07/12/19 Concetta Acevedo MD [address] [place] [address] Surgeon NEUROLOGICAL SURGERY 12/16/22 documented as of this encounter
--- OUTSIDE RECORDS SUMMARY | 2024-09-03 19:10 | XMS_ITS | Encounter Summary ---
Author Organization [facility] Address [facility] [place] [address] [place] [address] Care Team Providers Care Global Transportation Manager Name Role Phone Piyush Pandey MD Unavailable Unavailabl e Megan Infante MD Primary Care Provider [phone] Sharmila Davis APRN, NP-C Unavailable [phone] Linda Block MD Unavailable [phone] Jeff Grace MD Unavailable Zaki Ortiz MD Unavailable [phone] Romeo-Concetta Pond MD Unavailable + [phone] Encounter Details Date Type Department Care Team (Latest Contact Info) Description 01/22/2023 Travel Social History Tobacco Use Types Packs/Day [...] st Contact Info) Description 09/25/2024 2:00 PM SILVER MINER BLASTING Appointment [facility] [address] [place] [address] Zayra Powell, [facility] [address] [place] [address] 10/16/2024 3:30 PM SILVER MINER BLASTING Office Visit [facility] [address] [place] [phone] Brit Gonzáles MD [address] [place] [address] documented as of this encounter Visit Diagnoses Not on filedocumented in this encounter Additional Health Concerns Assessment Noted Time PHQ-9 Depression Total Score: 0 12/02/19 22 1:18 PM CDT documented as of this encounter Care Teams Global Transportation Manager Relationship Specialty Start Date End Date Megan Infante MD [address] [place] [phone] PCP - General FAMILY PRACTICE 04/06/16 Piyush Pandey MD [place] Teacher Aide CARDIOVASCULAR DISEASE 04/06/16 12/28/23 Sharmila Davis, ASSISTANT CURATOR, BICYCLE REPAIRER-C [address] [phone] NURSE PRACTITIONER 01/04/17 04/03/24 Linda Block MD [address] [phone] Tennyson Teacher Aide CLINICAL CARDIAC ELECTROPHYSIOLOGY 02/08/17 04/12/23 Jeff Grace MD [address] [phone] Consulting Physician INTERNAL MEDICINE 02/20/19 3 Zaki Ortiz MD [address] [phone] Consulting Physician PULMONARY DISEASE 07/12/19 Concetta Acevedo MD [address] [place] [address] Surgeon NEUROLOGICAL SURGERY 12/16/22 documented as of this encounter
--- OUTSIDE RECORDS SUMMARY | 2024-09-03 19:10 | XMS_ITS | Encounter Summary ---
Author Organization [facility] Address formerly [facility] [place] [address] [place] [address] Care Team Providers Care Merchant Police Name Role Phone Piyush Pandey MD Unavailable Unavailabl e Megan Infante MD Primary Care Provider [phone] Sharmila Davis APRN, NP-C Unavailable Linda Block MD Unavailable [phone] Zaki Ortiz MD Unavailable [phone] Romeo-Concetta Pond MD Unavailable + [phone] Jeff Grace MD Unavailable Reason for Visit * Reason Onset Date Comments Appointment Reminder 02/11/2023 Encounter Details Date Type Department Care Team (Late st Contact Info) Description 02/11/2023 [facility] [address] [place] [address] Jeff Grace MD [address] [place] [address] Appointment Reminder Social History Tobacco Use Types [...] often do you attend chur ch or yazidism services? More than 4 times per year [...] move on to questions 3-9 0 12/01/2021 [facility] [...] or slept in a retirement (including now)? No 02/06/2023 Sex and Gender [...] Assessment Author Status No 02/06/2023 11:00 AM CDT Veronique Oropeza RN Active * Are you blind or do you have serious difficulty seeing, even when wearing glasses? Answer Date of Assessment Author Status No 02/06/2023 11:00 AM CDT Veronique Oropeza RN Active * Do you have serious difficulty walking or climbing stairs? Answer Date of Assessment Author Status Yes 02/06/2023 11:00 AM CDT Veronique Oropeza RN Active * Do you have difficulty dressing or bathing? Answer Date of Assessment Author Status Yes 02/06/2023 11:00 AM CDT Veronique Oropeza RN Active * Because of a physical, mental, or emotional condition, do you have difficulty doing errands alone such as visiting a doctor's office or shopping? Answer Date of Assessment Author Status No 02/06/2023 11:00 AM CDT Veronique Oropeza RN Active documented as of this encounter Mental Status * Because of a physical, mental, or emotional condition, do you have serious difficulty concentrating, remembering, or making decisions? Answer Entry Date Author Status No 02/06/2023 11:00 AM CDT Veronique Oropeza RN Active documented in this encounter Progress Notes * Andie Ojeda LPN - 02/11/2023 8:22 AM CDT Telephoned Mendez to schedule a hospital follow up. Per Mendez scheduled for Apr 13, 2023 at [facility]. Reminder letter mailed . documented in this encounter Plan of Treatment Upcoming Encounters Date Type Department Care Team (Late st Contact Info) Description 09/25/2024 2:00 PM BORING MACHINE OPERATOR HORIZONTAL Appointment [facility] [address] [place] [address] Zayra Powell, [facility] [address] [place] [address] 10/16/2024 3:30 PM BORING MACHINE OPERATOR HORIZONTAL Office Visit [facility] [address] [place] [address] Brit Gonzáles MD [address] [place] [address] documented as of this encounter Goals Goal Patient Goal Type Associated Problems Recent Progress Patient-Stated? Author Family - family caregiver with be involved in care transitions and discharge planning Lifestyle No Unterbrink, Karen, RN documented as of this encounter Visit Diagnoses Not on filedocumented in this encounter Additional Health Concerns Assessment Noted Time PHQ-9 Depression Total Score: 0 12/02/19 22 1:18 PM CDT documented as of this encounter Care Teams Merchant Police Relationship Specialty Start Date End Date Megan Infante MD [address] [facility] [place] [phone] PCP - General FAMILY PRACTICE 04/06/16 Piyush Pandey MD [place] Wood Shingle Roofer CARDIOVASCULAR DISEASE 04/06/16 12/28/23 Sharmila Davis APRN, RESEARCH ASSISTANT PROFESSOR-C [address] [phone] NURSE PRACTITIONER 01/04/17 04/03/24 Linda Block MD [address] [place] [phone] [place] Wood Shingle Roofer CLINICAL CARDIAC ELECTROPHYSIOLOGY 02/08/17 04/12/23 Zaki Ortiz MD [address] [place] [phone] Consulting Physician PULMONARY DISEASE 07/12/19 Concetta Acevedo MD [address] [place] [address]392 Surgeon NEUROLOGICAL SURGERY 12/16/22 Jeff Grace MD [address] [place] [address] Consulting Physician INTERNAL MEDICINE 02/11/23 documented as of this encounter
--- OUTSIDE RECORDS SUMMARY | 2024-09-03 19:10 | XMS_ITS | Encounter Summary ---
Author Organization [facility] Address [facility] [address] [place] [address] Care Team Providers Care Recruit Instructor Name Role Phone Piyush Pandey MD Unavailable Unavailabl e Megan Infante MD Primary Care Provider [phone] Sharmila Davis APRN, NP-C Unavailable [phone] Linda Block MD Unavailable [phone] Jeff Grace MD Unavailable Zaki Ortiz MD Unavailable [phone] Romeo-Concetta Pond MD Unavailable + [phone] Encounter Details Date Type Department Care Team (Latest Contact Info) Description 02/06/2023 Travel Social History Tobacco Use Types Packs/Day [...] 02/06/2023 How often do you attend chur or orthodox services? More than 4 times per year [...] move on to questions 3-9 0 12/01/2021 [facility] - [...] No 02/06/2023 Housing Stability Vital Sign Answer Stevensno e [...] or slept in a prison (including now)? No 02/06/2023 Sex and Gender [...] dressing or bathing? Yes 02/06/2023 11:00 AM SKYLART Veronique Oropeza RN Active Because of a physical, mental, or emotional condition, do you have difficulty doing errands alone such as visiting a doctor's office or shopping? No 02/06/2023 11:00 AM SKYLART Veronique Oropeza RN Ac tive * Question Answer Date of Assessment Author Status Do you have serious difficulty walking or climbing stairs? Yes 02/06/2023 11:00 AM Veronique Scruggs RN A ctive * Are you deaf or do you have serious difficulty hearing Answer Date of Assessment Author Status No 02/06/2023 11:00 AM SKYLART Veronique Oropeza RN Active * Are you [...] Date Author Status No 02/06/2023 11:00 AM Veronique Scruggs RN Active documented in this encounter Plan of Treatment Upcoming Encounters Date Type Department Care Team (Late st Contact Info) Description 09/25/2024 2:00 PM FARMWORKER RICE Appointment [facility] [address] [place] [address] Zayra Powell, DESKTOP ENGINEER [address] [place] [address] 10/16/2024 3:30 PM FARMWORKER RICE Office Visit [facility] [address] [place] [phone] Brit Gonzáles MD [address] [place] [address] documented as of this encounter Visit Diagnoses Not on filedocumented in this encounter Additional Health Concerns Assessment Noted Time PHQ-9 Depression Total Score: 0 12/02/19 22 1:18 PM CDT documented as of this encounter Care Teams Recruit Instructor Relationship Specialty Start Date End Date Megan Infante MD [address] [facility] [address] [place] [address] PCP - General FAMILY PRACTICE 04/06/16 Piyush Pandey MD [place] Scale And Skip Car Operator CARDIOVASCULAR DISEASE 04/06/16 12/28/23 Sharmila Davis APRN, BOOKS BINDER-C [address] [phone] NURSE PRACTITIONER 01/04/17 04/03/24 Linda Block MD [address] [phone] [place] Scale And Skip Car Operator CLINICAL CARDIAC ELECTROPHYSIOLOGY 02/08/17 04/12/23 Jeff Grace MD [address] [phone] Consulting Physician INTERNAL MEDICINE 02/20/19 3 Zaki Ortiz MD [address] [phone] Consulting Physician PULMONARY DISEASE 07/12/19 Concetta Acevedo MD [address] [place] [address] Surgeon NEUROLOGICAL SURGERY 12/16/22 documented as of this encounter
--- OUTSIDE RECORDS SUMMARY | 2024-09-03 19:10 | XMS_ITS | Encounter Summary ---
Author Organization [facility] Address [address] [place] [address]. [place] [address] [place] [address] Care Team Providers Care Registered Account Administrator Name Role Phone Piyush Pandey MD Unavailable Unavailabl e Megan Infante MD Primary Care Provider [phone] Sharmila Davis APRN, NP-C Unavailable Linda Block MD Unavailable [phone] Jeff Grace MD Unavailable Zaki Ortiz MD Unavailable [phone] Romeo-Concetta Pond MD Unavailable + [phone] Encounter Details Date Type Department Care Team (Late st Contact Info) Description 01/21/2023 12:42 PM CDT - 01/21/2023 11:59 PM CDT Hospital Encounter [facility] [address] [place] [address] Megan Infante MD [address] [place] [phone] Discharge Disposition: Home or Self Care (Routine [...] st Contact Info) Description 09/25/2024 2:00 PM MAT MAKING MACHINE TENDER Appointment [facility] [address] [place] [address] Zayra Powell, [facility] [address] [place] [address] 10/16/2024 3:30 PM MAT MAKING MACHINE TENDER Office Visit [facility] [address] [place] [address] Brit Gonzáles MD [address] [place] [address] documented as of this encounter Procedures Procedure Name Priority Date/Time Associated Diagnosis Comments IRON SAT PANEL (IRON,IBC,%SAT) Routine 01/21/2023 12:00 PM CDT Low hemoglobin A-fib (CMS/HCC HHS/HCC) RETICULOCYTE CT, AUTO Routine 01/21/2023 12:00 PM CDT Low hemoglobin A-fib (CMS/HCC HHS/HCC) PROTHROMBIN TIME, VENOUS Routine 01/21/2023 12:00 PM CDT Low hemoglobin A-fib (CMS/HCC HHS/HCC) CBC W/DIFF AUTOMATED Routine 01/21/2023 12:00 PM CDT Low hemoglobin A-fib (CMS/HCC HHS/HCC) FERRITIN Routine 01/21/2023 12:00 PM CDT Low hemoglobin A-fib (CMS/HCC HHS/HCC) BLOOD SMEAR INTERPRETATION BY Routine 01/21/2023 12:00 AM CDT Low hemoglobin A-fib (CMS/HCC HHS/HCC) documented in this encounter Results * (ABNORMAL) PROTIME/INR, VENOUS (01/21/2023 12:00 PM CDT) PROTIME 65.0(H) 9.4 - 12.5 SEC 01/21/2023 1:39 PM CDT [facility] INR 5.6(HH) 0.8 - 1.0 01/21/2023 1:39 PM CDT [facility] Comment: CRITICAL VALUE CALLED TO PAUL Hugo 01/21/23 AFW READ BACK AND VERIFIED 01/21/2023 12:0 0 PM CDT us Megan Infante MD LABORATORY Final Result [facility] [address] [place] [address], * (ABNORMAL) FERRITIN (01/21/2023 12:00 PM CDT) FERRITIN 12.9(L) 26 - 388 NG/ML 01/21/2023 1:25 PM CDT [facility] 01/21/2023 12:0 0 PM CDT us Megan Infante MD LABORATORY Final Result Performing Organization Address [facility]/ZIP Co de Phone Number [facility] [address] [place] [address], * (ABNORMAL) CBC W/DIFF AUTOMATED (01/21/2023 12:00 PM CDT) WBC 7.34 4.00 - 10.80 x10'3/uL 01/21/2023 1:22 PM CDT [facility] RBC 3.81(L) 4.50 - 6.10 x10'6/uL 01/21/2023 1:22 PM CDT [facility] HGB 8.6(L) 13.0 - 18.0 G/DL 01/21/2023 1:22 PM CDT [facility] HCT 30.4(L) 37.0 - 52.0 % 01/21/2023 1:22 PM CDT [facility] MCV 79.8 78.0 - 100.0 FL 01/21/2023 1:22 PM CDT [facility] MCH 22.6(L) 27.0 - 31.0 PG 01/21/2023 1:22 PM CDT [facility] MCHC 28.3(L) 33.0 - 36.0 G/DL 01/21/2023 1:22 PM CDT [facility] RDW 18.4(H) 11.5 - 14.5 % 01/21/2023 1:22 PM CDT [facility] PLT 180 150 - 350 x10'3/uL 01/21/2023 1:22 PM CDT [facility] MPV 10.9(H) 7.4 - 10.4 FL 01/21/2023 1:22 PM CDT [facility] CBC COMMENT NORMAL REFERENCE RANGE NOT ESTABLISHED FOR THE PROPORTIONAL LEUKOCYTE DIFFERENTIAL. 01/21/2023 1:22 PM CDT [facility] NEUTROPHILS % 69.5 % 01/21/2023 1:42 PM CDT [facility] LYMPHOCYTES % 14.6 % 01/21/2023 1:42 PM CDT [facility] MONOCYTES % 12.1 % 01/21/2023 1:42 PM CDT [facility] EOSINOPHILS % 3.0 % 01/21/2023 1:42 PM CDT [facility] BASOPHILS % 0.4 % 01/21/2023 1:42 PM CDT [facility] IMMATURE GRANS % 0.4 % 01/22/20 1:42 PM CDT [facility] NRBC 0.0 % 01/21/2023 1:42 PM CDT [facility] ABS. NEUTROPHILS 5.10 1.60 - 8.30 x10'3/uL 01/21/2023 1:42 PM CDT [facility] ABS. LYMPHOCYTES 1.07 0.80 - 4.70 x10'3/uL 01/21/2023 1:42 PM CDT [facility] ABS. MONOCYTES 0.89 0.00 - 1.50 x10'3/uL 01/21/2023 1:42 PM CDT [facility] ABS. EOSINOPHILS 0.22 0.00 - 0.40 x10'3/uL 01/21/2023 1:42 PM CDT [facility] ABS. BASOPHILS 0.03 0.00 - 0.20 x10'3/uL 01/21/2023 1:42 PM CDT [facility] ABS. IMMATURE GRANULOCYTES 0.03 0.00 - 0.03 x10'3/uL 01/21/2023 1:42 PM CDT [facility] ABS. NUCLEATED RBC'S 0.00 0.00 x10'3/uL 01/21/2023 1:42 PM CDT [facility] PLT MORPH. NORMAL 01/21/2023 1:42 PM CDT [facility] RBC MORPHOLOGY 1+ 01/21/2023 1:42 PM CDT [facility] Comment: RODRI CELLS 1+ SCHISTOCYTES 1+ OVALOCYTES 1+ HYPOCHROMASIA 2+ POIKILOCYTOSIS 2+ ANISOCYTOSIS 01/21/2023 12:0 0 PM CDT us Megan Infante MD LABORATORY Final Result Performing Organization Address [facility] Co de Phone Number [facility] [address] [place], [place] [address] [address], * (ABNORMAL) RETICULOCYTE CT, AUTO (01/21/2023 12:00 PM CDT) RETICULOCYTE COUNT 1.3 0.7 - 2.3 % 01/21/2023 1:22 PM CDT [facility] ABSOLUTE RETICULOCYTE 0.05 0.03 - 0.11 x10'6/uL 01/21/2023 1:22 PM CDT [facility] IMMATURE RETIC FRACTION 15.2(H) 2.3 - 13.4 % 01/21/2023 1:22 PM CDT [facility] RETIC HGB 19.3(L) 28.0 - 35.0 PG 01/21/2023 1:22 PM CDT [facility] 01/21/2023 12:0 0 PM CDT us Megan Infante MD LABORATORY Final Result Performing Organization Address City/[facility]/ZIP Co de Phone Number [facility] [place] [address], [place] [phone] * (ABNORMAL) IRON SATURATION PNL (FE/TIBC/SAT) (01/21/2023 12:00 PM CDT) IRON 23(L) 65 - 175 MCG/DL 01/21/2023 1:11 PM CDT [facility] IRON BINDING CAPACITY 410 250 - 450 MCG/DL 01/21/2023 1:11 PM CDT [facility] IRON SATURATION 6 % 1:11 PM CDT [facility] Comment:REFERENCE RANGE NOT ESTABLISHED 01/21/2023 12:0 0 PM CDT us Megan Infante MD LABORATORY Final Result [facility] [address] [place] [address], * BLOOD SMEAR INTERPRETATION BY (01/21/2023 12:00 AM CDT) PATHOLOGY [facility] ? Department of Laboratory Medicine ?[address] [facility] ?[place] [address] ? , extension [phone] ? Pathology Report ? Peripheral Smear Report Name: OBIE SIMS ?Specimen #: [id number] Age: 12 1955 (Age: 67) ? Location: Sex: M ?Procedure Date: 01/21/2023 [facility] #: [id number] ?Date Received: 01/25/2023 Date Reported: 01/25/2023 Provider: MEGAN INFANTE MD Source: Peripheral blood Clinical History: The patient is a 67-year-old male with a history of anemia. ??The patient is on Warfarin for atrial fibrillation. ??The peripheral blood smear review is requested by Megan Infante. FINAL DIAGNOSIS: PERIPHERAL BLOOD, SMEAR REVIEW: ? - HYPOCHROMIC MICROCYTIC ANEMIA, MODERATE. Diagnosis Comment: Review of the peripheral blood smear shows moderate hypochromic microcytic anemia. ??Concurrent serum iron studies show a decreased iron and high-normal iron binding capacity. ??Serum ferritin is also decreased in addition to the reticulocyte hemoglobin equivalent. ??The combined morphologic and serologic findings are consistent with iron deficiency anemia. ??Recommend correlation with fecal occult blood testing, as clinically indicated. ?? Electronically Signed Out ? CONNER EDWARDS MD INTERPRETATION: Peripheral Blood Comments: COMPLETE BLOOD COUNT RESULTS Component Ref Range & Units 01/21/23 1200 WBC 4.00 - 10.80 x10'3/uL 7.34 ??RBC 4.50 - 6.10 x10'6/uL 3.81Low ??HGB 13.0 - 18.0 G/DL 8.6Low ??HCT 37.0 - 52.0 % 30.4Low ??MCV 78.0 - 100.0 FL 79.8 ??MCH 27.0 - 31.0 PG 22.6Low ??MCHC 33.0 - 36.0 G/DL 28.3Low ??RDW 11.5 - 14.5 % 18.4High ??PLT 150 - 350 x10'3/uL 180 ??MPV 7.4 - 10.4 FL 10.9High ??CBC COMMENT ??NORMAL REFERENCE RANGE NOT ESTABLISHED FOR THE PROPORTIONAL LEUKOCYTE DIFFERENTIAL. ??NEUTROPHILS % 69.5 ??LYMPHOCYTES % 14.6 MONOCYTES % 12.1 ??EOSINOPHILS % 3.0 ??BASOPHILS % 0.4 ??IMMATURE GRANS % 0.4 ??NRBC % 0.0 ??ABS. NEUTROPHILS 1.60 - 8.30 x10'3/uL 5.10 ??ABS. LYMPHOCYTES 0.80 - 4.70 x10'3/uL 1.07 ??ABS. MONOCYTES 0.00 - 1.50 x10'3/uL 0.89 ??ABS. EOSINOPHILS 0.00 - 0.40 x10'3/uL 0.22 ??ABS. BASOPHILS 0.00 - 0.20 x10'3/uL 0.03 ??ABS. IMMATURE GRANULOCYTES 0.00 - 0.03 x10'3/uL 0.03 ??ABS. NUCLEATED RBC'S 0.00 x10'3/uL 0.00 RED BLOOD CELLS: The hemoglobin is decreased to 8.6 g/dL. ??The red blood cells are generally hypochromic and microcytic with mild anisopoikilocytosis characterized by scattered ovalocytes, rodri cells, and irregular contracted forms. ??No nucleated red blood cells or red blood cell inclusions are identified. ??Significant schistocytes or spherocytes are not identified. ??No rouleaux formation or red blood cell agglutination is identified. WHITE BLOOD CELLS: The white blood cell number is within normal range. ??The white blood cells are distributed in accordance with the reported cell differential. ??The absolute total neutrophil count is within normal range, and circulating forms are morphologically unremarkable. ??No circulating blasts are identified. ??Other white blood cell subsets are normal in number and morphology. PLATELETS: Platelets are normal in number and morphology. ??They are predominantly small and appropriately granulated. Gross examination (when applicable), interpretation and sign-out were performed at [facility], [address] [facility], [place], [place], [address]. [facility] 01/21/2023 01/25/2023 11: 01 AM CDT Comment:Peripheral blood Megan Infante MD LABORATORY Final Result [facility] [address] [place] [address], [phone] documented in this encounter Visit Diagnoses Diagnosis Low hemoglobin Anemia, unspecified A-fib (CMS/HCC HHS/HCC) Atrial fibrillation documented in this encounter Additional Health Concerns Assessment Noted Time PHQ-9 Depression Total Score: 0 12/02/19 22 1:18 PM CDT documented as of this encounter Care Teams Registered Account Administrator Relationship Specialty Start Date End Date Megan Infante MD [address] [place] [phone] PCP - General FAMILY PRACTICE 04/06/16 Piyush Pandey MD Eugene Tailer Out CARDIOVASCULAR DISEASE 04/06/16 12/28/23 Sharmila Davis, DANNY, UNDERGROUND MINER-C [address] [place] [address] NURSE PRACTITIONER 01/04/17 04/03/24 Linda Block MD [address] [facility] [address] [place] [address] Eugene Tailer Out CLINICAL CARDIAC ELECTROPHYSIOLOGY 02/08/17 04/12/23 Jeff Grace MD [address] [facility] [address] [place] [phone] Consulting Physician INTERNAL MEDICINE 02/20/19 3 Zaki Ortiz MD [address] [facility] [address] [place] [address] Consulting Physician PULMONARY DISEASE 07/12/19 Concetta Acevedo MD [address] [place] [address] Surgeon NEUROLOGICAL SURGERY 12/16/22 documented as of this encounter
--- OUTSIDE RECORDS SUMMARY | 2024-09-03 19:10 | XMS_ITS | Encounter Summary ---
Author Organization [facility] Address [address] [place] [address]. [place] [address] [place] [address] Care Team Providers Care [employer] Name Role Phone Piyush Pandey MD Unavailable Unavailabl e Megan Infante MD Primary Care Provider [phone] Sharmila Davis APRN, NP-C Unavailable Linda Block MD Unavailable [phone] Jeff Grace MD Unavailable Zaki Ortiz MD Unavailable [phone] Concetta Acevedo MD Unavailable + [phone] Encounter Details Date Type Department Care Team (Late st Contact Info) Description 01/12/2023 12:06 PM CDT - 01/12/2023 11:59 PM CDT Hospital Encounter [facility] [address] [place] [address] Megan Infante MD [address] [place] [phone] Discharge Disposition: Home or Self Care (Routine [...] Status No 12/28/2022 6:30 PM SKYLART Inga Msoeley RN Active * Do you have serious [...] Info) Description 09/25/2024 2:00 PM TELEGRAPH SERVICE CLERK Appointment [facility] [address] [place] [address] [address] Zayra Powell, [facility] [address] [place] [address] 10/16/2024 3:30 PM TELEGRAPH SERVICE CLERK Office Visit [facility] [address] [place] [address] Brit Gonzáles MD [address] [place] [address] documented as of this encounter Procedures Procedure Name Priority Date/Time Associated Diagnosis Comments COMPREHENSIVE METABOLIC PANEL Routine 01/12/2023 11:30 AM CDT CHF (congestive heart failure) ([facility] HHS/HCC) CBC W/DIFF AUTOMATED Routine 01/12/2023 11:30 AM CDT CHF (congestive heart failure) ([facility] HHS/HCC) documented in this encounter Results * (ABNORMAL) CBC W/DIFF AUTOMATED (01/12/2023 11:30 AM CDT) WBC 8.45 4.00 - 10.80 x10'3/uL 01/12/2023 12:30 PM CDT [facility] RBC 3.69(L) 4.50 - 6.10 x10'6/uL 01/12/2023 12:30 PM CDT [facility] HGB 8.4(L) 13.0 - 18.0 G/DL 01/12/2023 12:30 PM CDT [facility] HCT 29.7(L) 37.0 - 52.0 % 01/12/2023 12:30 PM CDT [facility] MCV 80.5 78.0 - 100.0 FL 01/12/2023 12:30 PM CDT [facility] MCH 22.8(L) 27.0 - 31.0 PG 01/12/2023 12:30 PM CDT [facility] MCHC 28.3(L) 33.0 - 36.0 G/DL 01/12/2023 12:30 PM CDT [facility] RDW 18.5(H) 11.5 - 14.5 % 01/12/2023 12:30 PM CDT [facility] PLT 206 150 - 350 x10'3/uL 01/12/2023 12:30 PM CDT [facility] MPV 11.2(H) 7.4 - 10.4 FL 01/12/2023 12:30 PM CDT [facility] CBC COMMENT NORMAL REFERENCE RANGE NOT ESTABLISHED FOR THE PROPORTIONAL LEUKOCYTE DIFFERENTIAL. 01/12/2023 12:30 PM CDT [facility] NEUTROPHILS % 72.7 % 01/12/2023 1:04 PM CDT [facility] LYMPHOCYTES % 13.0 % 01/12/2023 1:04 PM CDT [facility] MONOCYTES % 10.9 % 01/12/2023 1:04 PM CDT [facility] EOSINOPHILS % 2.2 % 01/12/2023 1:04 PM CDT [facility] BASOPHILS % 0.7 % 01/12/2023 1:04 PM CDT [facility] IMMATURE GRANS % 0.5 % 01/13/20 1:04 PM CDT [facility] NRBC 0.0 % 01/12/2023 1:04 PM CDT [facility] ABS. NEUTROPHILS 6.14 1.60 - 8.30 x10'3/uL 01/12/2023 1:04 PM CDT [facility] ABS. LYMPHOCYTES 1.10 0.80 - 4.70 x10'3/uL 01/12/2023 1:04 PM CDT [facility] ABS. MONOCYTES 0.92 0.00 - 1.50 x10'3/uL 01/12/2023 1:04 PM CDT [facility] ABS. EOSINOPHILS 0.19 0.00 - 0.40 x10'3/uL 01/12/2023 1:04 PM CDT [facility] ABS. BASOPHILS 0.06 0.00 - 0.20 x10'3/uL 01/12/2023 1:04 PM CDT [facility] ABS. IMMATURE GRANULOCYTES 0.04(H) 0.00 - 0.03 x10'3/uL 01/12/2023 1:04 PM CDT [facility] ABS. NUCLEATED RBC'S 0.00 0.00 x10'3/uL 01/12/2023 1:04 PM CDT [facility] PLT MORPH. NORMAL 01/12/2023 1:04 PM CDT [facility] RBC MORPHOLOGY 1+ 01/12/2023 1:04 PM CDT [facility] Comment:HYPOCHROMASIA 01/12/2023 11:3 0 AM CDT Megan Infante MD LABORATORY Final Result [facility] [address] [place] [address], * (ABNORMAL) COMPREHENSIVE METABOLIC PANEL (01/12/2023 11:30 AM CDT) SODIUM S/P/B 135(L) 136 - 145 MMOL/L 01/12/2023 12:42 PM CDT [facility] POTASSIUM S/P/B 4.5 3.5 - 5.1 MMOL/L 01/12/2023 12:42 PM CDT [facility] CHLORIDE S/P/B 97(L) 98 - 107 MMOL/L 01/12/2023 12:42 PM CDT [facility] CO2 28.7 21.0 - 32.0 MMOL/L 01/12/2023 12:42 PM CDT [facility] GLUCOSE 229(H) 70 - 99 MG/DL 01/12/2023 12:42 PM CDT [facility] Comment: FASTING GLUCOSE 100 TO 125 MG/DL IS CONSISTENT WITH IMPAIRED FASTING GLUCOSE. FASTING GLUCOSE >125 MG/DL IS CONSISTENT WITH DIABETES. RANDOM GLUCOSE >200 MG/DL WITH HYPERGLYCEMIC SYMPTOMS IS CONSISTENT WITH DIABETES. PER ADA GUIDELINES BUN 38(H) 6 - 24 MG/DL 01/12/2023 12:42 PM CDT [facility] CREATININE S/P/B 1.86(H) 0.70 - 1.30 MG/DL 01/12/2023 12:42 PM CDT [facility] CALCIUM S/P/B 9.1 8.4 - 10.5 MG/DL 01/12/2023 12:42 PM [facility] BILIRUBIN TOTAL S/P/B 0.9 0.2 - 1.0 MG/DL 01/12/2023 12:42 PM [facility] Comment: THIS ASSAY IS NOT RECOMMENDED FOR PATIENTS UNDERGOING TREATMENT WITH ELTROMBOPAG DUE TO THE POTENTIAL FOR FALSELY ELEVATED RESULTS. ALKALINE PHOSPHATASE S/P/B 169(H) 45 - 115 U/L 01/12/2023 12:42 PM [facility] AST 22 15 - 37 U/L 01/12/2023 12:42 PM [facility] ALT 33 16 - 63 U/L 01/12/2023 12:42 PM [facility] TOTAL PROTEIN S/P/B 7.5 6.4 - 8.2 G/DL 01/12/2023 12:42 PM [facility] ALBUMIN S/P/B 3.2(L) 3.4 - 5.0 G/DL 01/12/2023 12:42 PM [facility] ANION GAP 9.3 5.0 - 15.0 MMOL/L 01/12/2023 12:42 PM [facility] OSMOLALITY (CALC) 296 MOSM/KG 023 12:42 PM [facility] Comment:REFERENCE RANGE NOT ESTABLISHED GFR ESTIMATE 39(L) >89 ML/MIN/1. 73 M2 01/12/2023 12:42 PM [facility] GFR NOTES GFR REFERENCE S: 01/12/2023 12:42 PM [facility] Comment: THE ESTIMATED GFR IS [...] CDT Megan Infante MD LABORATORY Final Result [facility] [address] [place] [address], documented in this encounter Visit Diagnoses Diagnosis CHF (congestive heart failure) ([facility]) Congestive heart failure, unspecified documented in this encounter Additional Health Concerns Assessment Noted Time PHQ-9 Depression Total Score: 0 12/02/19 22 1:18 PM CDT documented as of this encounter Care Teams [employer] Farmer Relationship Specialty Start Date End Date Megan Infante MD [address] [facility] [place] [phone] PCP - General FAMILY PRACTICE 04/06/16 Piyush Pandey MD [employer] CARDIOVASCULAR DISEASE 04/06/16 12/28/23 Sharmila Davis APRN, PANTS PRESSER AUTOMATIC-C [id number] [place] [address] NURSE PRACTITIONER 01/04/17 04/03/24 Linda Block MD [address] [facility] [address] [place] [address] [employer] CLINICAL CARDIAC ELECTROPHYSIOLOGY 02/08/17 04/12/23 Jeff Grace MD [address] [facility] [address] [place] [address] Consulting Physician INTERNAL MEDICINE 02/20/19 3 Zaki Ortiz MD [address] [place] [address] Consulting Physician PULMONARY DISEASE 07/12/19 Concetta Acevedo MD [address] [place] [address] Surgeon NEUROLOGICAL SURGERY 12/16/22 documented as of this encounter
--- OUTSIDE RECORDS SUMMARY | 2024-09-03 19:10 | XMS_ITS | Encounter Summary ---
Author Organization [facility] Address [facility] [place] [address] [place] [address] Care Team Providers Care Clinical Review Nurse Name Role Phone Piyush Pandey MD Unavailable Unavailabl e Megan Infante MD Primary Care Provider [phone] Sharmila Davis APRN, MATTRESS FINISHER-C Unavailable Linda Block MD Unavailable [phone] Jeff Grace MD Unavailable Zaki Ortiz MD Unavailable [phone] Concetta Acevedo MD Unavailable + [phone] Reason for Visit * Reason Comments Follow Up Recent hospitalizati on Encounter Details Date Type Department Care Team ([facility] st Contact Info) Description 01/22/2023 9:30 AM CDT Office Visit Danni Robledo-Michoacano paul [address] [place] [address] Sharmila Davis APRN, MATTRESS FINISHER-C [address] [facility] [address] [place] [address] Follow Up (Recent hospitalization) Social History Tobacco Use Types Packs/Day Years [...] slept in a prison (including now)? No 12/28/2022 Sex and Gender [...] Sign Reading Time Taken Comments Blood Pressure 108/62 01/22/2023 9:19 AM CDT Pulse 78 01/22/2023 9:19 AM CDT Temperature - - Respiratory Rate 24 01/22/2023 9:19 AM CDT Oxygen Saturation - - Inhaled Oxygen Concentration - - Weight 99.9 kg (220 lb 3.2 oz) 01/22/2023 9:19 A M CDT Height 167.6 cm (5' 6 ) 01/22/2023 9:19 AM CDT Body Mass Index 35.54 01/22/2023 9:19 AM CDT documented in this encounter Functional [...] documented in this encounter Progress Notes * Sharmila Davis APRN, NP-C - 01/22/2023 9:30 AM CDT FROM: Sharmila Davis APRN, NP-C, collaborating physician Piyush Pandey III, M.D. RE: Mendez Lay : 1955 Reason for Visit: Follow Up (Recent hospitalization) History of Present Illness: Mr. Lay is a pleasant 67-year-old male seen in the cardiology clinic today for a hospital followup visit. He has a history of coronary artery disease, paroxysmal atrial fibrillation s/p PVI/WACA per Dr. Block on 10/24/15 and cardioversion in 03/2016, aortic stenosis s/p mechanical valve replacement in 1999 and bioprosthetic valve replacement 2013, LV dysfunction, mild carotid stenosis, hypertension, hyperlipidemia, type II diabetes, and COPD. He was seen in clinic on 12/28/2022 for a preoperative risk assessment. He was instructed to proceed to the ER for an acute exacerbation of congestive heart failure. He was hospitalized at [facility] from 12/28/2022 to 01/04/2023 for congestive he art failure and cellulitis. He was diuresed and given antibiotics. His echocardiogram revealed an LVEF 37% with mild LVH, moderately reduced right ventricular systolic function, and bioprosthetic aortic valve replacement with a mean gradient 16 mmHg. He was anemic with a hemoglobin as low as 8.1. He was also found to have a possible possible sigmoid volvulus, which was managed conservatively. He was eventually discharged with a weight of 219 pounds. He reports that he is doing reasonably well from a cardiac standpoint since his discharge. He denies any anginal chest pain. He still has shortness of breath, but states this improves with his inhalers. He tells me his weight has been stable at home, and his edema has much improved. He is wearing compression stockings, and applying ointments to his legs. He is still sleeping in a chair due to his neck pain. He is unable to walk far or stand for prolonged periods of time or turn his head due to the pain. He is anxious to undergo surgery. He tells me that he has not had to use his oxygen at nighttime. He has no palpitations. He will have occasional lightheadedness with standing up, but denies any syncope. He denies signs and symptoms of CVA or TIA. He seems to be tolerating his present medications well without reported side effects, but reports that his INR was significantly highthis week. He is currently holding his warfarin.. He denies signs of bleeding. Lab results from yesterday reveal that his hemoglobin is starting to trend up. His WBC was 7.34, hemoglobin 8.6, and hematocrit 30.4. His last BMP from 01/12/2023 revealed a sodium 135, potassium 4.5,BUN 38, and creatinine 1.86. Recommendations/Plan: Mr. Lay's cardiac status appears to be improving. His weight has remained stable since his discharge. He appears only minimally hypervolemic upon exam. His lungs are clear, and he still has some residual edema. His recent echocardiogram noted a reduction in his LVEF. He reports improvement in his CHF symptoms. He has multiple comorbid conditions, including his congestive heart failure, anemia,and cellulitis that have to be optimized prior to surgery. He is quite concerned about the timing of his neck surgery, as he is in a great deal of pain. I have recommended the following to Mr. Lay: 1. Congestive Heart Failure. His LVEF is 37%. His weight is down to 220 pounds. I have advised him that he needs to closely monitor his weight and symptoms, and call the office if he notices more fluid retention. He is currently on furosemide 80 mg daily. He was started on BiDil during his hospitalization due to his decreased renal function. However, it appears that this has been discontinued. Hehas been restarted on losartan. His primary care is closely monitoring his labs. 2. CAD. He denies any persistent anginal chest pain. His nuclear stress test last January did not reveal any evidence of ischemia. He will continue his current medications. 3. Aortic Valve Replacement. His recent echocardiogram demonstrated a stable bioprosthetic aortic valve replacement with a mean gradient of 16 mmHg. He will continue low-dose aspirin. SBE antibiotic prophylaxis is recommended prior to any dental procedures. 4. Atrial Fibrillation. His heart rate is reasonably controlled with carvedilol. He is anticoagulated with warfarin. He will need to hold his warfarin for surgery. 5. Hypertension. His blood pressure is reasonably controlled in the office today. 6. Hyperlipidemia. He is currently treated with atorvastatin denies any reported side effects. An LDL less than 70 is recommended. 7. Preoperative Cardiac Risk Assessment. He is planning for a cervical spine surgery by Dr. Pond in the near future. He has remained relatively optimized from a fluid standpoint since his discharge. He will continue to follow closely with his primary care office for management of his anemia andcellulitis. Ideally, a hemoglobin closer to 10 would be preferred prior to surgery. However, if thesurgery is urgent, close monitoring of his anemia is recommended. He does not require any further cardiac testing prior to surgery at this point. Close monitoring and continued optimization of his heart failure is recommended. His cervical spine surgery will be an intermediate risk procedure from a cardiovascular standpoint. His cardiac risk is at least moderately elevated in light of his coronary artery disease, congestive heart failure, atrial fibrillation, valvular heart disease, hypertension, and anemia. At the time of surgery, I would recommend the followin. Perioperative telemetry monitoring. 2. Discontinuation of warfarin anticoagulation 5-7 days prior to the procedure. 3. Perioperative maintenance of beta blockade and statin therapy. 4. Maintenance of a serum hemoglobin of 8.0 or greater. 5. Cautious fluid resuscitation to avoid exacerbation of heart failure. We will plan to see Mr. Lay in approximately 2 weeks for close follow-up and continued optimization prior to his upcoming surgery. I have encouraged him to contact me in the meantime should he have any questions or problems. Medications: Current Outpatient Medications: albuterol sulfate HFA [...] 2 (two) times daily., Disp: , Rfl: docusate sodium 100 MG capsule, Take 1 capsule (100 mg total) by mouth as needed for Constipation.,Disp: , Rfl: furosemide (LASIX) 80 MG tablet, Take 1 tablet (80 mg total) by mouth daily for 30 days., Disp: 30 tablet, Rfl: 0 gabapentin (NEURONTIN) 400 MG capsule, Take 1 capsule (400 mg total) by mouth. 1 tablet in the morning and 2 tablets at night, Disp: , Rfl: glipiZIDE XL (GLUCOTROL XL) 5 MG 24 hr tablet, 1-2 tablets daily in am, Disp: , Rfl: HYDROcodone-acetaminophen (NORCO) 7.5-325 MG tablet, Take 1 tablet by mouth 2 (two) times daily as needed. Indications: Chronic Pain, Disp: 20 tablet, Rfl: 0 hydrOXYzine (ATARAX) 50 MG tablet, Take 1 tablet (50 mg total) by mouth 3 (three) times daily. As needed, Disp: , Rfl: insulin detemir (LEVEMIR FLEXPEN) 100 UNIT/ML PEN, Inject into the skin as needed., Disp: , Rfl: JARDIANCE 25 MG tablet, Take 1 tablet (25 mg total) by mouth daily., Disp: , Rfl: losartan (COZAAR) 25 MG tablet, Take 1 tablet (25 mg total) by mouth daily., Disp: , Rfl: methocarbamol (ROBAXIN) 500 MG tablet, Take 1 tablet (500 mg total) by mouth 2 (two) times a day., Disp: , Rfl: mupirocin (BACTROBAN) 2 % ointment, Apply 1 [...] 100-62.5-25 MCG/ACT AEROSOL POWDER, BREATH ACTIVATED, Inhale into the lungs daily.,Disp: , Rfl: warfarin (COUMADIN) 1 MG tablet, As directed, Disp: , Rfl: warfarin (COUMADIN) 5 MG tablet, As directed, Disp: , Rfl: insulin lispro (HUMALOG) 100 UNIT/ML injection (VIAL), Inject 0-8 Units into the skin 4 [...] 349, administer 8 units and Call Physician) (Patientnot taking: Reported on 01/22/2023), Disp: 9.6 mL, Rfl: 0 Review of patient's allergies indicates: No Known Allergies Past Medical History: Diagnosis Date Abnormal ankle brachial index ([facility]) Acute on chronic heart failure, unspecified heart failure type ([facility]/HCC) Anxiety Aortic valve stenosis Arthritis Asthma, mild persistent 04/06/2021 Atrial fibrillation ([facility]/HCC) s/p PVI/WACA 10/2015 Bilateral leg pain Carotid disease, bilateral ([facility]) CHF (congestive heart failure) ([facility]/HCC) Claudication ([facility]) COPD (chronic obstructive pulmonary disease) ([facility]) Coronary artery disease Diabetes mellitus, type II (CMS/HCC) Edema 04/19/2018 2+ pitting History of blood transfusion Hyperlipidemia Hypertension LV dysfunction Osteoarthritis PAD (peripheral artery disease) (CMS/[facility]) Pneumonia Restless leg syndrome S/P aortic valve replacement with bioprosthetic valve 2013 SOB (shortness of breath) Stroke ([facility]) Varicose veins of bilateral lower extremities with other complications Weight gain with edema Past Surgical History: Procedure Laterality Date APPENDECTOMY CARDIAC VALVE REPLACEMENT 1999 CARDIAC VALVE REPLACEMENT 2013 CARDIOVERSION EXTERNAL 10/01/2015 CARDIOVERSION EXTERNAL 04/14/2012 COLONOSCOPY N/A 03/18/2021 COLONOSCOPY (Incomplete) performed by Kilo Navarro MD at [facility] OR COLONOSCOPY N/A 01/27/2022 COLONOSCOPY WITH COLD SNARE POLYPECTOMY performed by Kilo Navarro MD at [facility] OR HIP ARTHROPLASTY Left KNEE ARTHROPLASTY [...] MGF PGM PGF Review of Systems Constitutional: Positive for weight loss. Negative for recent unintentional weight gain and new or significant fatigue. HENT: Negative for new or significant hearing loss. Eyes: Negative for blurred vision and double vision. Respiratory: Positive for shortness of breath. Negative for cough and snoring. Cardiovascular: See HPI. Positive for leg swelling. Gastrointestinal: Negative for blood in stool and melena. Genitourinary: Negative for dysuria. Musculoskeletal: Positive for myalgias and joint stiffness/pain. Skin: Negative for rash. Neurological: Positive for dizziness. Negative for tingling/numbness and focal weakness. Endo/Heme/Allergies: Negative for new or significant bruising/bleeding and polydipsia. Psychiatric/Behavioral: Negative for depression and new or significant memory loss. Vitals: 01/22/23 0919 BP: 108/62 Patient Position: Sitting BP Location: Right arm Pulse: 78 Weight: 99.9 kg (220 lb 3.2 oz) Height: 5' 6 (1.676 m) Body mass index is 35.54 kg/m??. Cardiac Exam Rate/Rhythm: Normal rate. An irregularly irregular rhythm present. PMI: Pulses: Dorsalis pedis pulses are 1+ on the right side and 1+ on the left side. Posterior tibial pulses are 1+ on the right side and 1+ on the left side. Heart Sounds: Normal S1 sounds. Normal S2 sounds. No gallop present. No S3. No S4. Murmurs: Murmur present Systolic murmur is present with a grade of 2/6. Edema left: 1+. Edema Right: 1+. Physical Exam Constitutional: No distress. Healthy Appearance. Examined in chair. HENT: Oropharynx clear. Eyes: Pupils equal, round, and reactive to light. Conjunctivae normal. Neck: Neck supple. No JVD. Abdomen: Abdomen soft. Bowel sounds normal. No distension. No tenderness. No abdominal bruit present. Pulmonary: Effort normal. Breath sounds normal. Skin: Dry. Warm. No rash. No jaundice. No cyanosis. No clubbing. No xanthoma. Musculoskeletal: No kyphosis. Normal ROM. Neurological: Alert. Oriented x 3. Appropriate mood and affect. Comments: Compression stockings in place Diagnoses/Impression: 1. Chronic combined systolic and diastolic congestive heart failure (CMS/HCC) 2. Coronary artery disease involving manzanita coronary artery of manzanita heart without angina pectoris 3. S/P aortic valve replacement with bioprosthetic valve 4. Chronic atrial fibrillation (CMS/HCC) 5. Preoperative cardiovascular examination 6. Essential hypertension 7. Mixed hyperlipidemia Referring Provider: No ref. provider found PCP: MEGAN INFANTE MD documented in this encounter Plan of Treatment Upcoming Encounters Date Type Department Care Team (Late st Contact Info) Description 09/25/2024 2:00 PM COMPUTER SCIENCE TEACHER Appointment [facility] [address] [place] [address] Zayra Powell, SPRAY PAINTER [address] [place] [address] 10/16/2024 3:30 PM COMPUTER SCIENCE TEACHER Office Visit [facility] [id number] [place] [phone] Brit Gonzáles MD [address] [place] [id number] documented as of this encounter Visit Diagnoses Diagnosis Chronic combined systolic and diastolic congestive heart failure (CMS/HCC HHS/HCC)- Primary Chronic combined systolic and diastolic heart failure Coronary artery disease involving manzanita coronary artery of manzanita heart without angina pectoris S/P aortic valve replacement with bioprosthetic valve Heart valve replaced by other means Chronic atrial fibrillation ([facility]/HCC HHS/HCC) Atrial fibrillation Preoperative cardiovascular examination Pre-operative cardiovascular examination Essential hypertension Unspecified essential hypertension Mixed hyperlipidemia documented in this encounter Additional Health Concerns Assessment Noted Time PHQ-9 Depression Total Score: 0 12/02/19 22 1:18 PM CDT documented as of this encounter Care Teams Clinical Review Nurse Relationship Specialty Start Date End Date Megan Infante MD [address] [facility] [facility] [place] [address] PCP - General FAMILY PRACTICE 04/06/16 Piyush Pandey MD [employer] CARDIOVASCULAR DISEASE 04/06/16 12/28/23 Sharmila Davis APRN, MATTRESS FINISHER-C [address] [id number] NURSE PRACTITIONER 01/04/17 04/03/24 Linda Block MD [address] [address] [employer] CLINICAL CARDIAC ELECTROPHYSIOLOGY 02/08/17 04/12/23 Jeff Grace MD [address] [address] Consulting Physician INTERNAL MEDICINE 02/20/19 3 Zaki Ortiz MD [address] [address] Consulting Physician PULMONARY DISEASE 07/12/19 Concetta Acevedo MD [address] [place] [id number] Surgeon NEUROLOGICAL SURGERY 12/16/22 documented as of this encounter
--- OUTSIDE RECORDS SUMMARY | 2024-09-03 19:10 | XMS_ITS | Encounter Summary ---
Author Organization [facility] Address [address] [place] [address]. [place] [address] [place] [address] Care Team Providers Care Occupational Therapy Teacher Name Role Phone Piyush Pandey MD Unavailable Unavailabl e Megan Infante MD Primary Care Provider [phone] Sharmila Davis APRN, NP-C Unavailable [phone] Linda Block MD Unavailable [phone] Jeff Grace MD Unavailable Zaki Ortiz MD Unavailable [phone] Romeo-Concetta Pond MD Unavailable + [phone] Encounter Details Date Type Department Care Team (Late st Contact Info) Description 01/21/2023 Orders Only [facility] [address] [place] [address] Megan Infante MD [address] [place] [address] Social History Tobacco Use Types [...] st Contact Info) Description 09/25/2024 2:00 PM PUNCH MACHINE OPERATOR Appointment [facility] [address] [place] [address] Zayra Powell, MASTER COOK [address] [place] [address] 10/16/2024 3:30 PM PUNCH MACHINE OPERATOR Office Visit [facility] [address] [place] [address] Brit Gonzáles MD [address] [place] [address] documented as of this encounter Results * (ABNORMAL) IRON SATURATION PNL (FE/TIBC/SAT) (01/21/2023 12:00 PM CDT) IRON 23(L) 65 - 175 MCG/DL 01/21/2023 1:11 PM CDT [facility] IRON BINDING CAPACITY 410 250 - 450 MCG/DL 01/21/2023 1:11 PM CDT [facility] IRON SATURATION 6 % 1:11 PM CDT [facility] Comment:REFERENCE RANGE NOT ESTABLISHED 01/21/2023 12:0 0 PM CDT us Megan Infante MD LABORATORY Final Result Performing Organization Address [facility] de Phone Number [facility] [address] [place], [place] [address] [place] [address], * (ABNORMAL) RETICULOCYTE CT, AUTO (01/21/2023 12:00 PM CDT) Pathologist [facility] RETICULOCYTE COUNT 1.3 0.7 - 2.3 % 01/21/2023 1:22 PM CDT [facility] ABSOLUTE RETICULOCYTE 0.05 0.03 - 0.11 x10'6/uL 01/21/2023 1:22 PM CDT [facility] IMMATURE RETIC FRACTION 15.2(H) 2.3 - 13.4 % 01/21/2023 1:22 PM CDT [facility] RETIC HGB 19.3(L) 28.0 - 35.0 PG 01/21/2023 1:22 PM CDT [facility] 01/21/2023 12:0 0 PM CDT us Megan Infante MD LABORATORY Final Result Performing Organization Address [facility] Co de Phone Number [facility] [address] [place], [place] [address] [place] [address], * (ABNORMAL) CBC W/DIFF AUTOMATED (01/21/2023 12:00 PM CDT) [facility] Signature WBC 7.34 4.00 - 10.80 x10'3/uL 01/21/2023 1:22 PM CDT [facility] RBC 3.81(L) 4.50 - 6.10 x10'6/uL 01/21/2023 1:22 PM CDT [facility] HGB 8.6(L) 13.0 - 18.0 G/DL 01/21/2023 1:22 PM CDT [facility] HCT 30.4(L) 37.0 - 52.0 % 01/21/2023 1:22 PM CDT [facility] MCV 79.8 78.0 - 100.0 FL 01/21/2023 1:22 PM CDT [facility] MCH 22.6(L) 27.0 - 31.0 PG 01/21/2023 1:22 PM CDT [facility] MCHC 28.3(L) 33.0 - 36.0 G/DL 01/21/2023 1:22 PM CDT [facility] RDW 18.4(H) 11.5 - 14.5 % 01/21/2023 1:22 PM CDT [facility] PLT 180 150 - 350 x10'3/uL 01/21/2023 1:22 PM CDT [facility] MPV 10.9(H) 7.4 - 10.4 FL 01/21/2023 1:22 PM CDT [facility] CBC COMMENT NORMAL REFERENCE RANGE NOT ESTABLISHED FOR THE PROPORTIONAL LEUKOCYTE DIFFERENTIAL. 01/21/2023 1:22 PM CDT [facility] NEUTROPHILS % 69.5 % 01/21/2023 1:42 PM CDT [facility] LYMPHOCYTES % 14.6 % 01/21/2023 1:42 PM CDT [facility] MONOCYTES % 12.1 % 01/21/2023 1:42 PM CDT [facility] EOSINOPHILS % 3.0 % 01/21/2023 1:42 PM CDT [facility] BASOPHILS % 0.4 % 01/21/2023 1:42 PM CDT [facility] IMMATURE GRANS % 0.4 % 01/22/20 1:42 PM CDT [facility] NRBC 0.0 % 01/21/2023 1:42 PM CDT [facility] ABS. NEUTROPHILS 5.10 1.60 - 8.30 x10'3/uL 01/21/2023 1:42 PM CDT [facility] ABS. LYMPHOCYTES 1.07 0.80 - 4.70 x10'3/uL 01/21/2023 1:42 PM CDT [facility] ABS. MONOCYTES 0.89 0.00 - 1.50 x10'3/uL 01/21/2023 1:42 PM CDT [facility] ABS. EOSINOPHILS 0.22 0.00 - 0.40 x10'3/uL 01/21/2023 1:42 PM CDT [facility] ABS. BASOPHILS 0.03 0.00 - 0.20 x10'3/uL 01/21/2023 1:42 PM CDT [facility] ABS. IMMATURE GRANULOCYTES 0.03 0.00 - 0.03 x10'3/uL 01/21/2023 1:42 PM CDT [facility] ABS. NUCLEATED RBC'S 0.00 0.00 x10'3/uL 01/21/2023 1:42 PM CDT [facility] PLT MORPH. NORMAL 01/21/2023 1:42 PM CDT [facility] RBC MORPHOLOGY 1+ 01/21/2023 1:42 PM CDT [facility] Comment: RODRI CELLS 1+ SCHISTOCYTES 1+ OVALOCYTES 1+ HYPOCHROMASIA 2+ POIKILOCYTOSIS 2+ ANISOCYTOSIS 01/21/2023 12:0 0 PM CDT Megan Infante MD LABORATORY Final Result [facility] [address] [place] [address], * (ABNORMAL) FERRITIN (01/21/2023 12:00 PM CDT) FERRITIN 12.9(L) 26 - 388 NG/ML 01/21/2023 1:25 PM CDT [facility] 01/21/2023 12:0 0 PM CDT us Megan Infante MD LABORATORY Final Result Performing Organization Address [facility] Co de Phone Number [facility] [address] [place] [address], * (ABNORMAL) PROTIME/INR, VENOUS (01/21/2023 12:00 PM CDT) Pathologist [facility] PROTIME 65.0(H) 9.4 - 12.5 SEC 01/21/2023 1:39 PM CDT [facility] INR 5.6(HH) 0.8 - 1.0 01/21/2023 1:39 PM CDT [facility] Comment: CRITICAL VALUE CALLED TO PAUL 133 01/21/23 AFW READ BACK AND VERIFIED 01/21/2023 12:0 0 PM CDT us Megan Infante MD LABORATORY Final Result Performing Organization Address [facility] Co de Phone Number [facility] [place] [address], * BLOOD SMEAR INTERPRETATION BY (01/21/2023 12:00 AM CDT) PATHOLOGY [facility] ? Department of Laboratory Medicine ?[address] ?[place] [address] ? , extension [phone] ? Pathology Report ? Peripheral Smear Report Name: OBIE SIMS ?Specimen #: [id number] Age: 12 1955 (Age: 67) ? Location: Sex: M ?Procedure Date: 01/21/2023 [facility] #: [id number] ?Date Received: 01/25/2023 Date Reported: 01/25/2023 Provider: [...] applicable), interpretation and sign-out were performed at [facility], [address] [place] [address], [place], [place], [facility]. [facility] 01/21/2023 01/25/2023 11: 01 AM CDT Comment:Peripheral blood us Megan Infante MD LABORATORY Final Result [facility] [address] [place] [address], [id number] documented in this encounter Visit Diagnoses Diagnosis Low hemoglobin- Primary Anemia, unspecified A-fib (CMS/HCC HHS/HCC) Atrial fibrillation documented in this encounter Additional Health Concerns Assessment Noted Time PHQ-9 Depression Total Score: 0 12/02/19 22 1:18 PM CDT documented as of this encounter Care Teams Occupational Therapy Teacher Relationship Specialty Start Date End Date Megan Infante MD [address] [place] [address] PCP - General FAMILY PRACTICE 04/06/16 Piyush Pandey MD [employer] Aircrewman CARDIOVASCULAR DISEASE 04/06/16 12/28/23 Sharmila Davis, SPORTS PHYSICIAN, CORRECTIONAL CASEWORK SPECIALIST-C [address] [facility] [address] [place] [address] NURSE PRACTITIONER 01/04/17 04/03/24 Linda Block MD [address] [facility] [address] [place] [address] [employer] Aircrewman CLINICAL CARDIAC ELECTROPHYSIOLOGY 02/08/17 04/12/23 Jeff Grace MD [address] [facility] [address] [address] Consulting Physician INTERNAL MEDICINE 02/20/19 3 Zaki Ortiz MD [address] [facility] [address] [place] [address] Consulting Physician PULMONARY DISEASE 07/12/19 Concetta Acevedo MD [address] [place] [id number] Surgeon NEUROLOGICAL SURGERY 12/16/22 documented as of this encounter
--- OUTSIDE RECORDS SUMMARY | 2024-09-03 19:10 | XMS_ITS | Encounter Summary ---
Author Organization [facility] Address [facility] [place] [address] [place] [address] Care Team Providers Care Cigar Packer And Shader Name Role Phone Piyush Pandey MD Unavailable Unavailabl e Megan Infante MD Primary Care Provider [phone] Sharmila Davis APRN, CLAMP REMOVER-C Unavailable Linda Block MD Unavailable [phone] Jeff Grace MD Unavailable Zaki Ortiz MD Unavailable [phone] RomeoConcetta Pond MD Unavailable + [phone] Reason for Visit * Reason Onset Date Comments Other 01/21/2023 Encounter Details Date Type Department Care Team ([facility] st Contact Info) Description 01/21/2023 Telephone [facility] [address] [place] [address] Sharmila Davis APRN, CLAMP REMOVER-C [address] [facility] [address] [place] [address] Other Social History Tobacco Use [...] or slept in a jail (including now)? No 12/28/2022 Sex and Gender [...] encounter Progress Notes * Reed Neville - 01/21/2023 10:35 AM CDT VM DATE/TIME:01/21/2023 at 9:15 am CALLER: pt #: [phone] PROVIDER/NEW PT: Sharmila Davis REASON FOR CALL: confirming appt REQUEST HANDLED AND HOW: confirmed documented in this encounter Plan of Treatment Upcoming Encounters Date Type Department Care Team (Late st Contact Info) Description 09/25/2024 2:00 PM CREW SUPERVISOR Appointment [facility] [address] [place] [address] Zayra Powell, SCREEN PRINTING CLOTH SPREADER [address] [place], [place] [phone] 10/16/2024 3:30 PM CREW SUPERVISOR Office Visit [facility] [address] [place] [address] Brit Gonzáles MD [address] [place] [address] documented as of this encounter Visit Diagnoses Not on filedocumented in this encounter Additional Health Concerns Assessment Noted Time PHQ-9 Depression Total Score: 0 12/02/19 22 1:18 PM CDT documented as of this encounter Care Teams Cigar Packer And Shader Relationship Specialty Start Date End Date Megan Infante MD [address] [place] [address] PCP - General FAMILY PRACTICE 04/06/16 Piyush Pandey MD [place] Supervisor [employer]printing [employer] Photocopy CARDIOVASCULAR DISEASE 04/06/16 12/28/23 Sharmila Davis, DANNY, CLAMP REMOVER-C [address] [facility] [address] [place] [address] NURSE PRACTITIONER 01/04/17 04/03/24 Linda Block MD [address] [facility] [address] [place] [address] [place] Supervisor [employer]printing [employer]ocopy CLINICAL CARDIAC ELECTROPHYSIOLOGY 02/08/17 04/12/23 Jeff Grace MD [address] [facility] [address] [place] [address] Consulting Physician INTERNAL MEDICINE 02/20/19 3 Zaki Ortiz MD [address] [facility] [address] [place] [address] Consulting Physician PULMONARY DISEASE 07/12/19 Concetta Acevedo MD [address] [place] [address] Surgeon NEUROLOGICAL SURGERY 12/16/22 documented as of this encounter
--- OUTSIDE RECORDS SUMMARY | 2024-09-03 19:10 | XMS_ITS | Encounter Summary ---
Author Organization [facility] Address [address] [place] [address]. [place] [address] [place] [address] Care Team Providers Care Mule Developer Name Role Phone Piyush Pandey MD Unavailable Unavailabl e Megan Infante MD Primary Care Provider [phone] Sharmila Davis APRN, NP-C Unavailable [phone] Linda Block MD Unavailable [phone] Jeff Grace MD Unavailable Zaki Ortiz MD Unavailable [phone] Romeo-Concetta Pond MD Unavailable + [phone] Encounter Details Date Type Department Care Team (Late st Contact Info) Description 01/19/2023 Orders Only [facility] [address] [place] [address] Megan Infante MD [address] [place] [address] Social History Tobacco Use Types [...] st Contact Info) Description 09/25/2024 2:00 PM MEDICAL OFFICE COORDINATOR Appointment [facility] [address] [place] [address] Zayra Powell, PHLEBOTOMY SUPPORT TECH [address] [place] [address] 10/16/2024 3:30 PM MEDICAL OFFICE COORDINATOR Office Visit [facility] [address] [place] [address] Brit Gonzáles MD [address] [place] [address] documented as of this encounter Results * (ABNORMAL) PROTIME/INR, VENOUS (01/19/2023 3:10 PM CDT) PROTIME 93.5(H) 9.4 - 12.5 SEC 01/19/2023 4:39 PM CDT [facility] INR 8.0(HH) 0.8 - 1.0 01/19/2023 4:39 PM CDT [facility] Comment: CRITICAL VALUE CALLED TO CALLED TO LA NENA MILLER RN 01.19.23 AT 1629 BY [employer] READ BACK AND VERIFIED 01/19/2023 3:10 PM CDT us Megan Infante MD LABORATORY Final Result [facility] [address] [employer] [address] [phone] documented in this encounter Visit Diagnoses Diagnosis A-fib (CMS/HCC HHS/HCC)- Primary Atrial fibrillation documented in this encounter Additional Health Concerns Assessment Noted Time PHQ-9 Depression Total Score: 0 12/02/19 22 1:18 PM CDT documented as of this encounter Care Teams Mule Developer Relationship Specialty Start Date End Date Megan Infante MD [address] [place] [place] [phone] PCP - General FAMILY PRACTICE 04/06/16 Piyush Pandey MD Balm Brush Maker CARDIOVASCULAR DISEASE 04/06/16 12/28/23 Sharmila Davis APRN, COMMERCIAL REAL ESTATE MANAGER-C [address] [place] [place] [address] NURSE PRACTITIONER 01/04/17 04/03/24 Linda Block MD [address] [facility] [address] [phone] Balm Brush Maker CLINICAL CARDIAC ELECTROPHYSIOLOGY 02/08/17 04/12/23 Jeff Grace MD [address] [place] [address] Consulting Physician INTERNAL MEDICINE 02/20/19 3 Zaki Ortiz MD [address] [place] [address] Consulting Physician PULMONARY DISEASE 07/12/19 Concetta Acevedo MD [address] [place] [address] Surgeon NEUROLOGICAL SURGERY 12/16/22 documented as of this encounter
--- OUTSIDE RECORDS SUMMARY | 2024-09-03 19:11 | XMS_ITS | Encounter Summary ---
Author Organization [facility] Address [facility] [place] [address] [place] [address] Care Team Providers Care Neighborhood Conservation Officer Name Role Phone Amauri Stinson MD Unavailable Unavailabl e Megan Infante MD Primary Care Provider [phone] Sharmila Davis APRN COMMUNITY SUPPORT PROFESSIONAL-C Unavailable [phone] Linda Block MD Unavailable [phone] Jeff Grace MD Unavailable Zaki Ortiz MD Unavailable [phone] [employer] Campuso-Concetta Pond MD Unavailable + [phone] Encounter Details Date Type Department Care Team (Late st Contact Info) Description 12/25/2022 Orders Only [facility] [address] [place] [address] Amauri Stinson MD Social History Tobacco Use Types Packs/Day Years Used Date Smoking Tobacco: Former Smokeless Tobacco: Former Chew Alcohol Use Standard Drinks/Week Comments Yes 0 (1 standard drink = 0.6 oz pur e alcohol) 6 beers per week PHQ-2 Answer Date Recorded PHQ-2 Score - If the patient scores above 3, please move on to questions 3-9 0 12/01/2021 Sex and Gender Information Value Date Recorded [...] suspected to have Coronavirus/COVID-19? No / Unsure 12/24/2022 2:33 PM CDT documented as of this encounter Functional Status * RETIRED Are you deaf or do you have serious difficulty hearing Answer Date of Assessment Author Status No 02/01/2022 5:00 AM CDT Activ e * RETIRED Are you blind or do you have serious difficulty seeing, even when wearing glasses? Answer Date of Assessment Author Status No 02/01/2022 5:00 AM CDT Activ e * Do you have serious difficulty walking or climbing stairs? Answer Date of Assessment Author Status Yes 02/01/2022 5:00 AM CDT Sona Lan RN Active * Do you have difficulty dressing or bathing? Answer Date of Assessment Author Status No 02/01/2022 5:00 AM CDT Sona Lan RN Active * Because of a physical, mental, or emotional condition, do you have difficulty doing errands alone such as visiting a doctor's office or shopping? Answer Date of Assessment Author Status No 02/01/2022 5:00 AM CDT Sona Lan RN Active documented as of this encounter Mental Status * Because of a physical, mental, or emotional condition, do you have serious difficulty concentrating, remembering, or making decisions? Answer Entry Date Author Status No 02/01/2022 5:00 AM CDT Sona Lan RN Active documented in this encounter Plan of Treatment Upcoming Encounters Date Type Department Care Team (Late st Contact Info) Description 09/25/2024 2:00 PM COMPUTER OPERATIONS SPECIALIST Appointment [facility] [address] [place] [address] Zayra Powell, DIRECTOR OF COMMUNITY SERVICES [address] [place] [address] 10/16/2024 3:30 PM COMPUTER OPERATIONS SPECIALIST Office Visit [facility] [address] [place] [address] Brit Gonzáles MD [address] [place] [address] documented as of this encounter Results * ELECTROCARDIOGRAM (12/28/2022 10:31 AM CDT) 12/28/2022 10:3 1 AM CDT Narrative [facility] - 12/28/2022 2:06 PM CDT ? [facility], [facility] ?[address] [place], [place] ??[address] ? Test Date: ?2022-12-28 Pat Name: ? OBIE SIMS ?Department: ?? 105 ? Room: ? Gender: ? Male ? Pocket Maker: ?? AAB : ?1955 ? Requested By: AMAURI STINSON Order Number: [id number] ?Reading MD: ?? Amauri Stinson ? Measurements Intervals ?[place] ? Rate: ? 80 ? P: ? AK: ? 0 ?QRS: ?-68 QRSD: ? 138 ?T: ?92 QT: ? 372 ? QTc: ?432 ? Interpretive Statements ATRIAL FIBRILLATION LEFT AXIS DEVIATION INTRAVENTRICULAR CONDUCTION DELAY Procedure Note Amauri Stinson MD - 12/28/2022 [facility], [place] [address] [place] [address] Test Date: 2022-12-28 Pat Name: OBIE SIMS Department: 105 Room: Gender: Male Pocket Maker: AAB : 1955 Requested By: AMAURI STINSON Order Number: [id number] Sage MD: Amauri Stinson Measurements Intervals [place] Rate: 80 P: AK: 0 QRS: -68 QRSD: 138 T: 92 QT: 372 QTc: 432 Interpretive Statements ATRIAL FIBRILLATION LEFT AXIS DEVIATION INTRAVENTRICULAR CONDUCTION DELAY us Amauri Stinson MD PROCEDURES-ORDERABLE NO DEONTE RGE Final Result [facility] documented in this encounter Visit Diagnoses Diagnosis Chronic atrial fibrillation (CMS/HCC HHS/HCC)- Primary Atrial fibrillation Mixed hyperlipidemia Essential hypertension Unspecified essential hypertension Preoperative cardiovascular examination- Primary Pre-operative cardiovascular examination Acute on chronic combined systolic and diastolic congestive heart failure ([facility]) 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 S/P aortic valve replacement with bioprosthetic valve Heart valve replaced by other means Essential hypertension Unspecified essential hypertension Chronic atrial fibrillation ([facility]) Atrial fibrillation Mixed hyperlipidemia documented in this encounter Additional Health Concerns Assessment Noted Time PHQ-9 Depression Total Score: 0 12/02/19 22 1:18 PM CDT documented as of this encounter Care Teams Neighborhood Conservation Officer Relationship Specialty Start Date End Date Megan Infante MD [address] [place] [phone] PCP - General FAMILY PRACTICE 04/06/16 Amauri Stinson MD [place] Magician/Illusionist CARDIOVASCULAR DISEASE 04/06/16 12/28/23 Sharmila Davis, OPEN DEVELOPER OPERATOR, COMMUNITY SUPPORT PROFESSIONAL-C [address] [facility] [place] [address] NURSE PRACTITIONER 01/04/17 04/03/24 Linda Block MD [address] [place] [address] [place] Magician/Illusionist CLINICAL CARDIAC ELECTROPHYSIOLOGY 02/08/17 04/12/23 Jeff Grace MD [address] [place] [phone] Consulting Physician INTERNAL MEDICINE 02/20/19 3 Zaki Ortiz MD [address] [phone] Consulting Physician PULMONARY DISEASE 07/12/19 Concetta Acevedo MD [address] [place] [address] Surgeon NEUROLOGICAL SURGERY 12/16/22 documented as of this encounter
--- OUTSIDE RECORDS SUMMARY | 2024-09-03 19:11 | XMS_ITS | Encounter Summary ---
Author Organization [facility] Address Replaced by [facility] [place] [address] [place] [address] Care Team Providers Care Silo Operator Name Role Phone Piyush Pandey MD Unavailable Unavailabl e Megan Infante MD Primary Care Provider [phone] Sharmila Davis APRN EMERGENCY ROOM CLINICIAN-C Unavailable Linda Block MD Unavailable [phone] Jeff Grace MD Unavailable Zaki Ortiz MD Unavailable [phone] Encounter Details Date Type Department Care Team (Late st Contact Info) Description 02/26/2022 Orders Only [facility] [address] [place] [address], [facility] [address] [place] [address] Jacinto Vega MD [address] [place] [address] Social History Tobacco Use Types Packs/Day Years [...] suspected to have Coronavirus/COVID-19? No / Unsure 02/01/2022 5:49 AM CDT documented as of this encounter [...] st Contact Info) Description 09/25/2024 2:00 PM BOTTLE HOUSE QUALITY CONTROL TECHNICIAN Appointment [facility] [address] [place] [address] Zayra Powell, POLICY SERVICE COORDINATOR [address] [place] [address] 10/16/2024 3:30 PM BOTTLE HOUSE QUALITY CONTROL TECHNICIAN Office Visit [facility] [address] [place] [address] Brit Gonzáles MD [address] [place] [address] documented as of this encounter Results * XR ANKLE RT M3V (02/26/2022 2:33 PM CDT) Anatomical Region Laterality Modality Ankle Radiographic Stephie ging 02/26/2022 4:14 PM CDT Impressions 02/26/2022 4:16 PM CDT IMPRESSION: Subacute fracture distal right fibula. Calcaneal spurs. Arterial vascular calcifications in the soft tissues. Ordered By: JACINTO VEGA Interpreted By: Cirilo Kenney MD, 02/26/2022 4:14 PM Narrative 02/26/2022 4:16 PM CDT 02/26/2022, 1349 hours. HISTORY: Right ankle pain. EXAM: AP, lateral and oblique views of the right ankle. Correlation to study 01/29/2022. FINDINGS: Subacute oblique fracture in the distal right fibula at and just proximal to the ankle mortise with about 1 mm lateral displacement of the distal fragment and overlying soft tissue swelling. The distal tibia is intact. No narrowing of the tibiotalar joint. Moderate size plantar and small Achilles calcaneal spurs. Accessory ossicle plantar lateral to the calcaneocuboid articulation. Coarse vascular calcifications in the knox of the anterior posterior tibial arteries at the level the ankle. Procedure Note Cirilo Kenney MD - 02/26/2022 02/26/2022, 1349 hours. HISTORY: Right ankle pain. EXAM: AP, lateral and oblique views of the right ankle. Correlation tostudy 01/29/2022. FINDINGS: Subacute oblique fracture in the distal right fibula at and justproximal to the ankle mortise with about 1 mm lateral displacement of thedistal fragment and overlying soft tissue swelling. The distal tibia isintact. No narrowing of the tibiotalar joint. Moderate size plantar andsmall Achilles calcaneal spurs. Accessory ossicle plantar lateral to thecalcaneocuboid articulation. Coarse vascular calcifications in the wallsof the anterior posterior tibial arteries at the level the ankle. IMPRESSION: Subacute fracture distal right fibula. Calcaneal spurs. Arterial vascularcalcifications in the soft tissues. Ordered By: JACINTO VEGA Interpreted By: Cirilo Kenney MD, 02/26/2022 4:14 PM Jacinto Vega MD GENERAL IMAGING Final Result documented in this encounter Visit Diagnoses Diagnosis Other closed fracture of distal end of right fibula with routine healing, subsequent encounter- Primary Other closed fracture of distal end of right fibula with routine healing, subsequent encounter documented in this encounter Additional Health Concerns Assessment Noted Time PHQ-9 Depression Total Score: 0 12/02/19 22 1:18 PM CDT documented as of this encounter Care Teams Silo Operator Relationship Specialty Start Date End Date Megan Infante MD [address] [facility] [place] [address] PCP - General FAMILY PRACTICE 04/06/16 Piyush Pandey MD Bude It Instructor CARDIOVASCULAR DISEASE 04/06/16 12/28/23 Sharmila Davis, CONSULTING PRACTICE DIRECTOR, EMERGENCY ROOM CLINICIAN-C [address] [facility] [address] [place] [address] NURSE PRACTITIONER 01/04/17 04/03/24 Linda Block MD [address] [facility] [address] [place] [address] Bude It Instructor CLINICAL CARDIAC ELECTROPHYSIOLOGY 02/08/17 04/12/23 Jeff Grace MD [address] [facility] [address] [place] [address] Consulting Physician INTERNAL MEDICINE 02/20/19 3 Zaki Ortiz MD [address] [facility] [address] [place] [address] Consulting Physician PULMONARY DISEASE 07/12/19 documented as of this encounter
--- OUTSIDE RECORDS SUMMARY | 2024-09-03 19:11 | XMS_ITS | Encounter Summary ---
Author Organization [facility] Address [address] [place] [address]. [place] [address] [place] [address] Care Team Providers Care Pomology Teacher Name Role Phone Piyush Pandey MD Unavailable Unavailabl e Megan Infante MD Primary Care Provider [phone] Sharmila Davis APRN CHURCH ADMINISTRATOR-C Unavailable [phone] Linda Block MD Unavailable [phone] Jeff Grace MD Unavailable Zaki Ortiz MD Unavailable [phone] Reason for Visit * Reason Onset Date Comments Medication Information 11/11/2022 Encounter Details Date Type Department Care Team (Late st Contact Info) Description 11/11/2022 Telephone [facility] [address] [place] [phone] Piyush Pandey MD Medication Information Social History Tobacco Use Types Packs/Day [...] suspected to have Coronavirus/COVID-19? No / Unsure 11/09/2022 10:54 AM CDT documented as of this encounter [...] Lan RN Active documented in this encounter Progress Notes * Marcella Freitas RN - 11/11/2022 11:[address] Pandey: reviewed lab results from 11/09 (PCP ordered) K-5.6; stop potassium supplement, continue spironolactone Phoned patient, given above instructions, expressed understanding. States feels some better with the increased lasix dose. documented in this encounter Plan of Treatment Upcoming Encounters Date Type Department Care Team (Late st Contact Info) Description 09/25/2024 2:00 PM BIT GATHERER Appointment [facility] [address] [place] [address] Zayra Powell, TANK TRUCK MECHANIC [address] [facility] [address] [place] [address] 10/16/2024 3:30 PM BIT GATHERER [facility] [address] [phone] Brit Gonzáles MD [address] [place], [place] [phone] documented as of this encounter Visit Diagnoses Not on filedocumented in this encounter Additional Health Concerns Assessment Noted Time PHQ-9 Depression Total Score: 0 12/02/19 22 1:18 PM CDT documented as of this encounter Care Teams Pomology Teacher Relationship Specialty Start Date End Date Megan Infante MD [address] [facility] [address] [place] [address] PCP - General FAMILY PRACTICE 04/06/16 Piyush Pandey MD [place] Thermal Cutter Helper CARDIOVASCULAR DISEASE 04/06/16 12/28/23 Sharmila Davis APRN, CHURCH ADMINISTRATOR-C [address] [place] [phone] NURSE PRACTITIONER 01/04/17 04/03/24 Linda Block MD [address] [place] [phone] [place] Thermal Cutter Helper CLINICAL CARDIAC ELECTROPHYSIOLOGY 02/08/17 04/12/23 Jeff Grace MD [address] [phone] Consulting Physician INTERNAL MEDICINE 02/20/19 3 Zaki Ortiz MD [address] [place] [phone] Consulting Physician PULMONARY DISEASE 07/12/19 documented as of this encounter
--- OUTSIDE RECORDS SUMMARY | 2024-09-03 19:11 | XMS_ITS | Encounter Summary ---
Author Organization [facility] Address [facility]ly [facility] [facility] [place] [address] [place] [address] Care Team Providers Care Foam Dispenser Name Role Phone Piyush Pandey MD Unavailable Unavailabl e Megan Infante MD Primary Care Provider [phone] Sharmila Davis APRN PLASTICS NURSE-C Unavailable [phone] Linda Block MD Unavailable [phone] Jeff Grace MD Unavailable Zaki Ortiz MD Unavailable [phone] Romeo-Concetta Pond MD Unavailable [phone] Reason for Visit * Reason Comments Outside Record (SCAN) Encounter Details Date Type Department Care Team (Late st Contact Info) Description 12/11/2022 Scan [facility] jorge [address] [place] [phone] Scanned, Doc Pccl Outside Record (SCAN) Social History Tobacco Use Types Packs/Day Years [...] or slept in a halfway (including now)? No 12/28/2022 Sex and Gender [...] serious difficulty walking or climbing stairs? Yes 12/28/2022 6:30 PM CDT Prin abhishek Moseley RN Active * Question Answer Date of Assessment Author Status Do you have difficulty dressing or bathing? No 12/28/2022 6:30 PM CDT Caitlin Moseley RN Active Because of a physical, mental, or emotional condition, do you have difficulty doing errands alone such as visiting a doctor's office or shopping? No 12/28/2022 6:30 PM SKYLART Prin abhishek Moseley RN Active * RETIRED Are you deaf or do [...] difficulty concentrating, remembering, or making decisions? No 12/28/2022 6:30 PM SKYLART Caitlin Moseley RN Active * Because of a physical, mental, or emotional condition, do you have serious difficulty concentrating, remembering, or making decisions? Answer Entry Date Author Status No 02/01/2022 5:00 AM SKYLART Sona Lan RN Active documented in this encounter Plan of Treatment Upcoming Encounters Date Type Department Care Team (Late st Contact Info) Description 09/25/2024 2:00 PM RN INFORMATICS Appointment [facility] [address] [place] [address] Zayra Powell, TERMINAL OPERATIONS SUPERVISOR [address] [place] [address] 10/16/2024 3:30 PM RN INFORMATICS Office Visit [facility] [address] [place] [address] Brit Gonzáles MD [address] [place], [place] [phone] documented as of this encounter Visit Diagnoses Not on filedocumented in this encounter Additional Health Concerns Infection Onset Date Last Indicated Resolved Time COVID-19 Rule Out 01/04/2023 01/04/2023 01/04/2023 10:12 AM CDT Assessment Noted Time PHQ-9 Depression Total Score: 0 12/02/19 22 1:18 PM CDT documented as of this encounter Care Teams Foam Dispenser Relationship Specialty Start Date End Date Megan Infante MD [address] [facility] [place] [address] PCP - General FAMILY PRACTICE 04/06/16 Piyush Pandey MD [place] Liquor Establishment Manager CARDIOVASCULAR DISEASE 04/06/16 12/28/23 Sharmila Davis APRN, PLASTICS NURSE-C [address] [place] [phone] NURSE PRACTITIONER 01/04/17 04/03/24 Linda Block MD [address] [place] [phone] [place] Liquor Establishment Manager CLINICAL CARDIAC ELECTROPHYSIOLOGY 02/08/17 04/12/23 Jeff Grace MD [address] [place] [phone] Consulting Physician INTERNAL MEDICINE 02/20/19 3 Zaki Ortiz MD [address] [place] [address] Consulting Physician PULMONARY DISEASE 07/12/19 Concetta Acevedo MD [address] [place] [address] Surgeon NEUROLOGICAL SURGERY 12/16/22 documented as of this encounter
--- OUTSIDE RECORDS SUMMARY | 2024-09-03 19:11 | XMS_ITS | Encounter Summary ---
Author Organization [facility] Address [address] [place] [address]. [place] [address] [place] [address] Care Team Providers Care Electrical Assembly Technician Name Role Phone Piyush Pandey MD Unavailable Unavailabl e Megan Infante MD Primary Care Provider [phone] Sharmila Davis APRN TRANSITIONS RN CARE COORDINATOR-C Unavailable [phone] Linda Block MD Unavailable [phone] Jeff Grace MD Unavailable Zaki Ortiz MD Unavailable [phone] Reason for Visit * Reason Comments Therapy Report (SCAN) Encounter Details Date Type Department Care Team ([facility] Contact Info) Description 03/19/2022 Scan [facility] Information Services [facility] [place] [address] Scanned, Documents Therapy Report (SCAN) Social History Tobacco Use Types Packs/Day [...] suspected to have Coronavirus/COVID-19? No / Unsure 03/26/2022 1:39 PM CDT documented as of this encounter [...] st Contact Info) Description 09/25/2024 2:00 PM CONE BAKER MACHINE Appointment [facility] [address] [place] [address] Zayra Powell, SIGNALMAN [address] [place] [address] 10/16/2024 3:30 PM CONE BAKER MACHINE Office Visit [facility] [address] [place] [address] Brit Gonzáles MD 9 [place] [address] documented as of this encounter Visit Diagnoses Not on filedocumented in this encounter Additional Health Concerns Assessment Noted Time PHQ-9 Depression Total Score: 0 12/02/19 22 1:18 PM CDT documented as of this encounter Care Teams Electrical Assembly Technician Relationship Specialty Start Date End Date Megan Infante MD [address] [facility] [place] [address] PCP - General FAMILY PRACTICE 04/06/16 Piyush Pandey MD [place] Fur Comber CARDIOVASCULAR DISEASE 04/06/16 12/28/23 Sharmila Davis APRN, TRANSITIONS RN CARE COORDINATOR-C [address] [phone] NURSE PRACTITIONER 01/04/17 04/03/24 Linda Block MD [address] [phone] [place] [employer] Comber CLINICAL CARDIAC ELECTROPHYSIOLOGY 02/08/17 04/12/23 Jeff Grace MD [address] [phone] Consulting Physician INTERNAL MEDICINE 02/20/19 3 Zaki Ortiz MD [address] [phone] Consulting Physician PULMONARY DISEASE 07/12/19 documented as of this encounter
--- OUTSIDE RECORDS SUMMARY | 2024-09-03 19:11 | XMS_ITS | Encounter Summary ---
Author Organization [facility] Address [address] [place] [address]. [place] [address] [place] [address] Care Team Providers Care Fig Bar Machine Operator Name Role Phone Piyush Pandey MD Unavailable Unavailabl e Mgean Infante MD Primary Care Provider [phone] Sharmila Davis APRN ENROLLMENT CONSULTANT-C Unavailable [phone] Linda Block MD Unavailable [phone] Jeff Grace MD Unavailable Zaki Ortiz MD Unavailable [phone] Encounter Details Date Type Department Care Team (Latest Contact Info) Description 02/26/2022 2:22 PM CDT - 02/26/2022 11:59 PM CDT Hospital Encounter [facility] [address] [place] [address] Jacinto Hamilton MD [address] [place] [address] Discharge Disposition: Home or Self [...] suspected to have Coronavirus/COVID-19? No / Unsure 02/26/2022 2:20 PM CDT documented as of this encounter [...] Assessment Author Status No 02/01/2022 5:00 AM SKYLART Sona Lan RN Active * Because of a physical, mental, or emotional condition, do you have difficulty doing errands alone such as visiting a doctor's office or shopping? Answer Date of Assessment Author Status No 02/01/2022 5:00 AM SKYLART Sona Lan RN Active documented as of this encounter Mental Status * Because of a physical, mental, or emotional condition, do you have serious difficulty concentrating, remembering, or making decisions? Answer Entry Date Author Status No 02/01/2022 5:00 AM Sona Deleon RN Active documented in this encounter Medications at Time of Discharge albuterol sulfate HFA 108 (90 Base) MCG/ACT inhaler Inhale 2 puffs into the lungs every 4 (four) hours as needed. 11/14/2015 allopurinol 300 MG tablet Take 1 tablet (300 mg total) by mouth daily. 02/17/2019 amlodipine 2.5 MG tablet Take 1 tablet (2.5 mg total) by mouth daily. 30 tablet 1 03/07/2019 3 aspirin 81 MG chewable tablet Chew 1 tablet (81 mg total) by mouth daily. 04/18/2014 4 atorvastatin 80 MG tablet Take 1 tablet (80 mg total) by mouth nightly at bedtime. 12/31/2016 carvedilol 6.25 MG tablet Take 12.5 mg by mouth 2 (two) times a day. 10/13/2021 3 clonazePAM 1 MG tabletIndications :Elevated brain natriuretic peptide (BNP) level Take 1 tablet (1 mg total) by mouth nightly as needed. 20 tablet 02/06/2022 3 docusate sodium 100 MG capsule Take 1 capsule (100 mg total) by mouth as needed for Constipation. Fluticasone-Umecl idin-Vilant 100-62.5-25 MCG/INH AEROSOL POWDER, BREATH ACTIVATED Inhale into the lungs daily. 3 folic acid 1 MG tablet Take 1 tablet (1 mg total) by mouth daily. 3 furosemide 40 MG tablet Take 1 tablet (40 mg total) by mouth daily for 30 days. 30 tablet 02/06/2022 2 gabapentin 100 MG capsule 2 capsules in the morning, 4 capsules in the afternoon, and 8 capsules at bedtime 02/25/2017 3 glipiZIDE XL 5 MG 24 hr tablet Take 5 mg by mouth daily with breakfast. Do not break or crush tablet 3 HYDROcodone-aceta minophen 5-325 MG tabletIndications :Acute Pain < 7 Day Supply Take 1 tablet by mouth every 6 (six) hours as needed. Indications: Acute Pain < 7 Day Supply 20 tablet 02/06/2022 2 losartan 50 MG tablet Take 1 tablet (50 mg total) by mouth daily. 12/02/2018 3 Melatonin 10 MG Cap Take 10 mg by mouth nightly as needed. 3 metFORMIN 500 MG tablet Take 1 tablet (500 mg total) by mouth 2 (two) times daily with meals. 3 nystatin cream Apply topically as needed. 01/31/2020 3 pantoprazole EC 40 MG tablet Take 1 tablet (40 mg total) by mouth daily. rOPINIRole 2 MG tablet Take 4 mg by mouth nightly. 11/20/2021 3 sertraline 50 MG tablet Take 1 tablet (50 mg total) by mouth daily. 10/03/2021 traZODone 100 MG tablet Take 1 tablet (100 mg total) by mouth nightly as needed for Sleep. 30 tablet 02/06/2022 2 warfarin 10 MG tablet Take 5 mg by mouth in the morning. As directed 10/21/2021 3 documented as of this encounter Plan of Treatment Upcoming Encounters Date Type Department Care Team (Late st Contact Info) Description 09/25/2024 2:00 PM EXTENSION ASSOCIATE Appointment [facility] [address] [address] Zayra Powell, FURNACE LOADER [address] [facility] [address] [place], [place] [phone] 10/16/2024 3:30 PM EXTENSION ASSOCIATE Office Visit [facility] [address] [place] [phone] Brit Gonzáles MD [address] [place] [address] documented as of this encounter Procedures Procedure Name Priority Date/Time Associated Diagnosis Comments XR ANKLE RT M3V Routine 02/26/2022 2:33 PM CDT Other closed fracture of distal end of right fibula with routine healing, subsequent encounter documented in this encounter Results * XR ANKLE RT M3V (02/26/2022 2:33 PM CDT) Anatomical Region Laterality Modality Ankle Radiographic Stephie ging 02/26/2022 4:14 PM CDT Impressions 02/26/2022 4:16 PM CDT IMPRESSION: Subacute fracture distal right fibula. Calcaneal spurs. Arterial vascular calcifications in the soft tissues. Ordered By: JACINTO HAMILTON Interpreted By: Cirilo Kenney MD, 02/26/2022 4:14 [...] in the soft tissues. Ordered By: JACINTO HAMILTON Interpreted By: Cirilo Kenney MD, 02/26/2022 4:14 PM Jacinto Hamilton MD GENERAL IMAGING Final Result documented in this encounter Visit Diagnoses Diagnosis Other closed fracture of distal end of right fibula with routine healing, subsequent encounter documented in this encounter Additional Health Concerns Assessment Noted Time PHQ-9 Depression Total Score: 0 12/02/19 22 1:18 PM CDT documented as of this encounter Care Teams Fig Bar Machine Operator Relationship Specialty Start Date End Date Megan Infante MD [address] [facility] [place] [address] PCP - General FAMILY PRACTICE 04/06/16 Piyush Pandey MD [place] Senior Net Developer Architect CARDIOVASCULAR DISEASE 04/06/16 12/28/23 Sharmila Davis APRN, ENROLLMENT CONSULTANT-C [address] [facility] [address] [place] [phone] NURSE PRACTITIONER 01/04/17 04/03/24 Linda Block MD [address] [address] [place] Senior Net Developer Architect CLINICAL CARDIAC ELECTROPHYSIOLOGY 02/08/17 04/12/23 Jeff Grace MD [address] [address] Consulting Physician INTERNAL MEDICINE 02/20/19 3 Zaki Ortiz MD [address] [facility] [address] [address] Consulting Physician PULMONARY DISEASE 07/12/19 documented as of this encounter
--- OUTSIDE RECORDS SUMMARY | 2024-09-03 19:11 | XMS_ITS | Encounter Summary ---
Author Organization [facility] Address Psychiatric hospital[facility] [place] [address] [place] [address] Care Team Providers Care Peripheral Equipment Operator Name Role Phone Amauri Pandey MD Unavailable Unavailabl e Megan Infante MD Primary Care Provider [phone] Sharmila Davis APRN, HEAD SAMPLER-C Unavailable [phone] Linda Block MD Unavailable [phone] Jeff Grace MD Unavailable Zaki Ortiz MD Unavailable [phone] Concetta Acevedo MD Unavailable + [phone] Reason for Visit * Reason Comments Consult Preop evaluation brown or to cervical spine surgery Encounter Details Date Type Department Care Team (Late st Contact Info) Description 12/28/2022 10:30 AM CDT Office Visit [facility] [address] [place] [address] Sharmila Davis APRN, HEAD SAMPLER-C [address] [facility] [address] [place] [address] Consult (Preop evaluation prior to cervical spine surgery) Social History Tobacco Use Types Packs/Day [...] to have Coronavirus/COVID-19? No / Unsure 12/28/2022 10:21 AM CDT documented as of this encounter Last Filed Vital Signs Vital Sign Reading Time Taken Comments Blood Pressure 126/72 12/28/2022 10:37 AM CDT Pulse 80 12/28/2022 10:36 AM CDT Temperature - - Respiratory Rate - - Oxygen Saturation 96% 12/28/2022 10:36 AM CDT Inhaled Oxygen Concentration - - Weight 102.1 kg (225 lb) 12/28/2022 10:36 AM CDT Height 167.6 cm (5' 6 ) 12/28/2022 10:36 AM CDT Body Mass Index 36.32 12/28/2022 10:36 AM CDT documented in this encounter Functional [...] Notes * Sharmila Davis APRN, NP-C - 12/28/2022 10:30 AM CDT FROM: Sharmila Davis APRN, NP-C, collaborating physician Amauri Pandey III, M.D. RE: Obie Sims : 1955 Reason for Visit: Consult (Preop evaluation prior to cervical spine surgery) History of Present Illness: Mr. Sims is a pleasant 67-year-old male seen in the cardiology clinic today for a preoperative cardiac risk assessment prior to undergoing a cervical fusion by Dr. Pond on 01/01/23 at [facility]. He has a history of coronary artery disease, paroxysmal atrial fibrillation s/p PVI/WACA per Dr. Block on 10/24/15 and cardioversion in 03/2016, aortic stenosis s/p mechanical valve replacement in 1999 and bioprosthetic valve replacement 2013, LV dysfunction, mild carotid stenosis, hypertension, hyperlipidemia, type II diabetes, and COPD. Over the past 1-2 months he has had issues with increasing lower extremity edema. This has progressed to abdominal swelling. His appetite has decreased, and he has had increasing shortness of breath.He reports occasional chest pain, but not associated with exertion, and similar to his baseline. Hehas had painful tight skin over bilateral legs with open wounds and weeping. His primary care office has given him oral antibiotics and IV antibiotics without significant improvement. He continues tohave pain in his legs. He is unable to lie flat in the bed, and sleeps in a chair. He has no palpitations. He does have lightheadedness with rising to a standing position, but denies any syncope. He h as had issues with weakness in his legs. He has fallen a few times this week. At times, his weakness prevents him from walking. He has pain in his neck, and is unable to turn his head. He denies signs and symptoms of CVA or TIA. He seems to be tolerating his present medications well without reported side effects. He denies signs of bleeding, other than hematuria approximately a week ago. He reports that he has had difficulty urinating, and strains at times. He saw nephrology last week, but denies any changes in his medications. He denies any recent fever or chills. Evaluation during the clinic visit included an EKG which confirmed the presence of atrial fibrillation at a rate of 80 beats per minute. Recommendations/Plan: Mr. Sims does appear fluid overloaded upon exam today. He appears has multiple issues currently. He is having weakness and falling, and was scheduled to have surgery on his cervical spine later this week. However, he does appear to be in acute congestive heart failure. He has been treated as an outpatient through his primary care office for cellulitis without improvement. His renal function is s teadily declining. We discussed the options of aggressive diuresis as an outpatient, but he would prefer to proceed to the ER in hopes of an admission. He was admitted for congestive heart failure a couple years ago, and believes that his current status is worse than at that time. His last echocardiogram in March 2022 noted an LVEF 40-45% with normal functioning bioprosthetic aortic valve replacement with a peak gradient of 29 mmHg and mean gradient 18 mmHg, and mild mitral and tricuspid regurgitation. He has underlying pulmonary hypertension, which also contributes to his shortness of breath. His last nuclear stress test in January 2022 did not reveal evidence of ischemia. His last cardiac catheterization in August 2020 revealed a normal left main, 60% proximal LAD stenosis, 50% RCA stenosis, and mild circumflex disease. He is unable to perform at least 4 METs of activity without exertional symptoms, and given his current status, he does need further optimizing before he can proceed with his elective surgery. I have recommended to Mr. Sims: Congestive Heart Failure. He is edematous throughout his abdomen and lower extremities. His weight is up approximately 15 pounds. He is currently taking furosemide 80 mg daily. We discussed the option of increasing his furosemide to 80 mg twice daily and adding metolazone 2.5 mg, but he would prefer inpatient diuresis if possible. His creatinine has increased over the year from 1.28 to 1.69, to now 2.35 on 12/24/22. His losartan was recently placed on hold due to his declining renal function. He remains on spironolactone. In reviewing his labs, he has also had hyperkalemia at times. He is planning to proceed to the ER for further evaluation. CAD. He denies any persistent anginal chest pain. His nuclear stress test last January did not reveal any evidence of ischemia. He will continue his current medications. Aortic Valve Replacement. His last echocardiogram demonstrated a well- functioning bioprosthetic aortic valve replacement. He will continue his low- dose aspirin. SBE antibiotic prophylaxis is recommended prior to any dental procedures. Atrial Fibrillation. He remains in atrial fibrillation and is relatively asymptomatic. His heart rate is reasonably controlled with carvedilol. He is anticoagulated with warfarin. He has not yet started his hold for surgery. Hypertension. His blood pressure is reasonably controlled in the office today. Hyperlipidemia. He is currently treated with atorvastatin and denies any side effects. An LDL less than 70 is recommended. His last lipid panel from 02/01/2022 revealed adequate control with total cholesterol 151, LDL 54, HDL 73, triglyceride 119. Further recommendations pending his clinical course. I have encouraged him to contact me in the meantime should he have any questions or problems. Medications: Current Outpatient Medications: albuterol sulfate HFA 108 (90 Base) MCG/ACT inhaler, Inhale 2 puffs into the lungs every 4 (four) hours as needed., Disp: , Rfl: allopurinol 300 MG tablet, Take 1 tablet (300 mg total) by mouth daily., Disp: , Rfl: amlodipine 2.5 MG tablet, Take 1 tablet (2.5 mg total) by mouth daily., Disp: 30 tablet, Rfl: 1 aspirin 81 MG chewable tablet, Chew 1 [...] , Rfl: furosemide (LASIX) 80 MG tablet, TAKE 1 1/2 TABLETS (120 MG) DAILY FOR 2 DAYS, THEN TAKE 1 TABLET (80 MG) DAILY (Patient taking differently: Take 1 tablet (80 mg total) by mouth daily. TAKE 1 1/2 TABLETS (120 MG) DAILY FOR 2 DAYS, THEN TAKE 1 TABLET (80 MG) DAILY), Disp: 31 tablet, Rfl: 11 gabapentin (NEURONTIN) 400 MG capsule, Take 1 capsule (400 mg total) by mouth. 1 tablet in the morning and 2 tablets at night, Disp: , Rfl: glipiZIDE XL (GLUCOTROL XL) 5 MG 24 hr tablet, 1-2 tablets daily in am, Disp: , Rfl: HYDROcodone-acetaminophen (NORCO) 7.5-325 MG tablet, Take 1 tablet by mouth 2 (two) times daily as needed., Disp: , Rfl: hydrOXYzine (ATARAX) 50 MG tablet, Take 1 tablet (50 mg total) by mouth 3 (three) times daily. As needed, Disp: , Rfl: insulin detemir (LEVEMIR FLEXPEN) 100 UNIT/ML PEN, Inject into the skin as needed., Disp: , Rfl: JARDIANCE 25 MG tablet, Take 1 tablet (25 mg total) by mouth daily., Disp: , Rfl: metFORMIN 500 MG tablet, Take 1 tablet (500 mg total) by mouth 2 (two) times daily with meals., Disp: , Rfl: methocarbamol (ROBAXIN) 500 MG tablet, Take 1 tablet (500 mg total) by mouth 2 (two) times a day., Disp: , Rfl: pantoprazole EC 40 MG [...] MG tablet, As directed, Disp: , Rfl: Review of patient's allergies indicates: No Known [...] 1999, 2013 SOB (shortness of breath) Stroke ([facility]/HCC) Varicose veins of bilateral lower extremities with other complications Weight gain with edema Past Surgical History: Procedure Laterality Date APPENDECTOMY CARDIAC VALVE REPLACEMENT 1999 CARDIAC VALVE REPLACEMENT 2013 CARDIOVERSION EXTERNAL 10/01/2015 CARDIOVERSION EXTERNAL 04/14/2012 COLONOSCOPY N/A 03/18/2021 COLONOSCOPY (Incomplete) performed by Kilo Navarro MD at [facility] OR COLONOSCOPY N/A 01/27/2022 COLONOSCOPY WITH COLD SNARE POLYPECTOMY performed by Kilo Navarro MD at [facility] OR HIP ARTHROPLASTY Left KNEE ARTHROPLASTY [...] Review of Systems Constitutional: Positive for weight gain and weakness. Negative for recent unintentional weight loss and new or significant fatigue. HENT: Negative for new or significant hearing loss. Eyes: Negative for blurred vision and double vision. Respiratory: Positive for shortness of breath. Negative for cough and snoring. Cardiovascular: See HPI. Positive for chest pain, orthopnea, leg swelling and slow healing cuts/wounds. Gastrointestinal: Negative for blood in stool and melena. Genitourinary: Positive for hematuria. Negative for dysuria. Musculoskeletal: Negative for myalgias and new or worsening joint stiffness/pain. Skin: Positive for rash. Neurological: Positive for dizziness and focal weakness. Negative for tingling/numbness. Endo/Heme/Allergies: Negative for new or significant bruising/bleeding and polydipsia. Psychiatric/Behavioral: Negative for depression and new or significant memory loss. Vitals: 12/28/22 1036 12/28/22 1037 BP: 128/74 126/72 Patient Position: Sitting Sitting BP Location: Left arm Right arm Pulse: 80 Weight: 102.1 kg (225 lb) Height: 5' 6 (1.676 m) Body mass index is 36.32 kg/m??. Cardiac Exam Rate/Rhythm: Normal rate. An irregularly irregular rhythm present. PMI: Pulses: Dorsalis pedis pulses are 1+ on the right side and 1+ on the left side. Posterior tibial pulses are 1+ on the right side and 1+ on the left side. Heart Sounds: Normal heart sounds. Normal S1 sounds. Normal S2 sounds. No gallop present. No S3. NoS4. Murmurs: No murmur present Physical Exam Constitutional: No distress. Examined in wheelchair. HENT: Oropharynx clear. Eyes: Pupils equal, round, and reactive to light. Conjunctivae normal. Neck: Neck supple. No JVD. Abdomen: Abdomen soft. Bowel sounds normal. Distension. No tenderness. No abdominal bruit present. Pulmonary: Breath sounds normal. Increased effort. Skin: Dry. Warm. No rash. No jaundice. No cyanosis. No clubbing. No xanthoma. Dry flaky skin. . Musculoskeletal: No kyphosis. Normal ROM. Neurological: Alert. Oriented x 3. Appropriate mood and affect. Comments: +2 BLE edema with abdominal tightness. BLE erythematous with scabs and scaling. Diagnoses/Impression: 1. Preoperative cardiovascular examination 2. Acute on chronic combined systolic and diastolic congestive heart failure (CMS/HCC) 3. Coronary artery disease involving [place] coronary artery of [place] heart without angina pectoris 4. S/P aortic valve replacement with bioprosthetic valve 5. Essential hypertension 6. Chronic atrial fibrillation (CMS/HCC) 7. Mixed hyperlipidemia Referring Provider: Concetta Waggoner* PCP: MEGAN INAFNTE MD documented in this encounter Plan of Treatment Upcoming Encounters Date Type Department Care Team (Late st Contact Info) Description 09/25/2024 2:00 PM LICENSED OCCUPATIONAL THERAPY ASSISTANT Appointment [facility] [address] [place] [address] Zayra Powell, SORTING AND FOLDING SUPERVISOR [address] [facility] [place] [address] 10/16/2024 3:30 PM LICENSED OCCUPATIONAL THERAPY ASSISTANT Office Visit [facility] [address] [place] [phone] Brit Gonzáles MD [address] [place], [place] [phone] documented as of this encounter Procedures Procedure Name Priority Date/Time Associated Diagnosis Comments ELECTROCARDIOGRAM (NON MIDMARK ACQUIRED) Routine 12/28/2022 10:31 AM CDT Chronic atrial fibrillation (CMS/HCC HHS/HCC) Mixed hyperlipidemia Essential hypertension documented in this encounter Results * ELECTROCARDIOGRAM (12/28/2022 10:31 AM CDT) 12/28/2022 10:3 1 AM CDT Narrative [facility] - 12/28/2022 2:06 PM CDT ? [facility], [facility] ?[address] [place], [place] ??[address] ? Test Date: ?2022-12-28 Pat Name: ? OBIE BELLHAN ?Department: ?? 105 ? Room: ? Gender: ? Male ? Aoc Plans Intelligence Officer: ?? AAB : ?1955 ? Requested By: AMAURI PANDEY Order Number: [id number] ?Reading MD: ?? Amauri Pandey ? Measurements Intervals ?[place] ? Rate: ? 80 ? P: ? MS: ? 0 ?QRS: ?-68 QRSD: ? 138 ?T: ?92 QT: ? 372 ? QTc: ?432 ? Interpretive Statements ATRIAL FIBRILLATION LEFT AXIS DEVIATION INTRAVENTRICULAR CONDUCTION DELAY Procedure Note Amauri Pandey MD - 12/28/2022 [facility], [facility] [address] [place] [address] Test Date: 2022-12-28 Pat Name: OBIE SIMS Department: 105 Room: Gender: Male Aoc Plans Intelligence Officer: GEETA : 1955 Requested By: AMAURI PANDEY Order Number: [id number] Reading MD: Amauri Pandey Measurements Intervals [place] Rate: 80 P: MS: 0 QRS: -68 QRSD: 138 T: 92 QT: 372 QTc: 432 Interpretive Statements ATRIAL FIBRILLATION LEFT AXIS DEVIATION INTRAVENTRICULAR CONDUCTION DELAY us Amauri Pandey MD PROCEDURES-ORDERABLE NO DEONTE RGE Final Result [facility] documented in this encounter Visit Diagnoses Diagnosis Preoperative cardiovascular examination- Primary Pre-operative cardiovascular examination Acute on chronic combined systolic and diastolic congestive heart failure (CMS/HCC HHS/HCC) Acute on chronic combined systolic and diastolic heart failure Coronary artery disease involving [place] coronary artery of [place] heart without angina pectoris S/P aortic valve replacement with bioprosthetic valve Heart valve replaced by other means Essential hypertension Unspecified essential hypertension Chronic atrial fibrillation ([facility]/HCC HHS/HCC) Atrial fibrillation Mixed hyperlipidemia documented in this encounter Additional Health Concerns Assessment Noted Time PHQ-9 Depression Total Score: 0 12/02/19 22 1:18 PM CDT documented as of this encounter Care Teams Peripheral Equipment Operator Relationship Specialty Start Date End Date Megan Infante MD [address] [place] [address] [place] [address] PCP - General FAMILY PRACTICE 04/06/16 Amauri Pandey MD Parachute Stopper Maker Helper CARDIOVASCULAR DISEASE 04/06/16 12/28/23 Sharmila Davis, AUTOMATIC HEMMER, HEAD SAMPLER-C [address] [facility] [address] [place] [phone] NURSE PRACTITIONER 01/04/17 04/03/24 Linda Block MD [address] [phone] Parachute Stopper Maker Helper CLINICAL CARDIAC ELECTROPHYSIOLOGY 02/08/17 04/12/23 Jeff Grace MD [address] [phone] Consulting Physician INTERNAL MEDICINE 02/20/19 3 Zaki Ortiz MD [address] [phone] Consulting Physician PULMONARY DISEASE 07/12/19 Concetta Acevedo MD [address] [place] [phone] Surgeon NEUROLOGICAL SURGERY 12/16/22 documented as of this encounter
--- OUTSIDE RECORDS SUMMARY | 2024-09-03 19:11 | XMS_ITS | Encounter Summary ---
Author Organization [facility] Address [address] [place] [address]. [place] [address] [place] [address] Care Team Providers Care Pump Tender Name Role Phone Piyush Pandey MD Unavailable Unavailabl e Megan Infante MD Primary Care Provider [phone] Sharmila Davis APRN ELECTRICIAN MANAGER-C Unavailable Linda Block MD Unavailable [phone] Jeff Grace MD Unavailable Zaki Ortiz MD Unavailable [phone] Encounter Details Date Type Department Care Team (Late st Contact Info) Description 11/09/2022 Orders Only [facility] [address] [place] [address] Jacquie Martel, PA-C [address] [place] [address] Social History Tobacco Use Types Packs/Day Years [...] st Contact Info) Description 09/25/2024 2:00 PM IMMUNOCHEMIST Appointment [facility] [address] [place] [address] Zayra Powell, HOSPITALITY WORKERS [address] [place] [address] 10/16/2024 3:30 PM IMMUNOCHEMIST Office Visit [facility] [address] [place] [address] Brit Gonzáles MD [address] [place] [phone] documented as of this encounter Results * (ABNORMAL) PROTIME/INR, VENOUS (11/09/2022 12:11 PM CDT) PROTIME 46.8(H) 9.4 - 12.5 SEC 11/09/2022 12:25 PM CDT [facility] INR 4.0(H) 0.8 - 1.0 11/09/2022 12:25 PM CDT [facility] 11/09/2022 12:1 1 PM CDT us Jacquie Martel PA-C LABORATORY Final Resul t [facility] [address] [employer] [place] [address], * (ABNORMAL) BASIC METABOLIC PANEL (11/09/2022 12:11 PM CDT) SODIUM S/P/B 135(L) 136 - 145 MMOL/L 11/09/2022 12:29 PM CDT [facility] POTASSIUM S/P/B 5.6(H) 3.5 - 5.1 MMOL/L 11/09/2022 12:29 PM CDT [facility] CHLORIDE S/P/B 103 98 - 107 MMOL/L 11/09/2022 12:29 PM CDT [facility] CO2 26.4 21.0 - 32.0 MMOL/L 11/09/2022 12:29 PM CDT [facility] GLUCOSE 91 70 - 99 MG/DL 11/09/2022 12:29 PM CDT [facility] Comment: FASTING GLUCOSE 100 TO 125 MG/DL IS CONSISTENT WITH IMPAIRED FASTING GLUCOSE. FASTING GLUCOSE >125 MG/DL IS CONSISTENT WITH DIABETES. RANDOM GLUCOSE >200 MG/DL WITH HYPERGLYCEMIC SYMPTOMS IS CONSISTENT WITH DIABETES. PER ADA GUIDELINES BUN 32(H) 6 - 24 MG/DL 11/09/2022 12:29 PM CDT [facility] CREATININE S/P/B 1.69(H) 0.70 - 1.30 MG/DL 11/09/2022 12:29 PM CDT [facility] CALCIUM S/P/B 9.2 8.4 - 10.5 MG/DL 11/09/2022 12:29 PM CDT [facility] ANION GAP 5.6 5.0 - 15.0 MMOL/L 11/09/2022 12:29 PM CDT [facility] OSMOLALITY (CALC) 286 MOSM/KG 023 12:29 PM CDT [facility] Comment:REFERENCE RANGE NOT ESTABLISHED GFR ESTIMATE 44(L) >89 ML/MIN/1. 73 M2 11/09/2022 12:29 PM CDT [facility] GFR NOTES GFR REFERENCE S: 11/09/2022 12:29 PM CDT [facility] Comment: THE ESTIMATED GFR [...] ml/min/1.73 m2 G5,KIDNEY FAILURE: <15 ml/min/1.73 m2 11/09/2022 12:1 1 PM CDT us Jacquie Martel PA-C LABORATORY Final Resul t [facility] [address] [place] [address], documented in this encounter Visit Diagnoses Diagnosis Atrial fibrillation status post cardioversion ([facility] Primary Cardiac complications Hyperkalemia Hyperpotassemia documented in this encounter Additional Health Concerns Assessment Noted Time PHQ-9 Depression Total Score: 0 12/02/19 22 1:18 PM CDT documented as of this encounter Care Teams Pump Tender Relationship Specialty Start Date End Date Megan Infante MD [address] [facility] [place] [phone] PCP - General FAMILY PRACTICE 04/06/16 Piyush Pandey MD [place] [employer] Finishing Supervisor CARDIOVASCULAR DISEASE 04/06/16 12/28/23 Sharmila Davis, RETAIL AND RESTAURANT, ELECTRICIAN MANAGER-C [address] [place] [address] [place] [phone] NURSE PRACTITIONER 01/04/17 04/03/24 Linda Block MD [address] [phone] [place] [employer]ishing Supervisor CLINICAL CARDIAC ELECTROPHYSIOLOGY 02/08/17 04/12/23 Jeff Grace MD [address] [phone] Consulting Physician INTERNAL MEDICINE 02/20/19 3 Zaki Ortiz MD [address] [phone] Consulting Physician PULMONARY DISEASE 07/12/19 documented as of this encounter
--- OUTSIDE RECORDS SUMMARY | 2024-09-03 19:11 | XMS_ITS | Encounter Summary ---
Author Organization [facility] Address [facility] [place] [address] [place] [address] Care Team Providers Care Ready To Wear Department Manager Name Role Phone Piyush Pandey MD Unavailable Unavailabl e Megan Infante MD Primary Care Provider [phone] Sharmila Davis APRN AIRPORT DUTY MANAGER-C Unavailable Linda Block MD Unavailable [phone] Jeff Grace MD Unavailable Zaki Ortiz MD Unavailable [phone] Encounter Details Date Type Department Care Team (Late st Contact Info) Description 03/16/2022 Orders Only [facility] [address] [place] [address], [facility] [address] [place] [address] Jacinto Vega MD [address] [place], [place] [phone] Social History Tobacco Use Types Packs/Day Years [...] st Contact Info) Description 09/25/2024 2:00 PM RADIATION CONTROL WORKER Appointment [facility] [address] [place] [address] Zayra Powell, VALIDATION TECHNICIAN [address] [place] [address] 10/16/2024 3:30 PM RADIATION CONTROL WORKER Office Visit [facility] [address] [place] [address] Brit Gonzáles MD [address] [place] [address] documented as of this encounter Visit Diagnoses Diagnosis Other closed fracture of distal end of right fibula with routine healing, subsequent encounter- Primary documented in this encounter Additional Health Concerns Assessment Noted Time PHQ-9 Depression Total Score: 0 12/02/19 22 1:18 PM CDT documented as of this encounter Care Teams Ready To Wear Department Manager Relationship Specialty Start Date End Date Megan Infante MD [address] [facility] [place] [phone] PCP - General FAMILY PRACTICE 04/06/16 Piyush Pandey MD [place] [employer]ia Attendant CARDIOVASCULAR DISEASE 04/06/16 12/28/23 Sharmila Davis, REHEATER HELPER, AIRPORT DUTY MANAGER-C [address] [facility] [address] [place] [phone] NURSE PRACTITIONER 01/04/17 04/03/24 Linda Block MD [address] [address] [place] [employer]ia Attendant CLINICAL CARDIAC ELECTROPHYSIOLOGY 02/08/17 04/12/23 Jeff Grace MD [address] [facility] [address] [phone] Consulting Physician INTERNAL MEDICINE 02/20/19 3 Zaki Ortiz MD [address] [facility] [address] [phone] Consulting Physician PULMONARY DISEASE 07/12/19 documented as of this encounter
--- OUTSIDE RECORDS SUMMARY | 2024-09-03 19:11 | XMS_ITS | Encounter Summary ---
Author Organization [facility] Address [address] [place] [address]. [place] [address] [place] [address] Care Team Providers Care Water Superintendent Name Role Phone Piyush Pandey MD Unavailable Unavailabl e Megan Infante MD Primary Care Provider [phone] Sharmila Davis APRN SPINDLE FRAME CARVER-C Unavailable [phone] Linda Block MD Unavailable [phone] Jeff Grace MD Unavailable Zaki Ortiz MD Unavailable [phone] Reason for Visit * Reason Comments Fracture CLOSED FRACTURE OF D ISTAL RIGHT FIBULA (DOI: 12/28/2021 Encounter Details Date Type Department Care Team (Latest Contact Info) Description 03/26/2022 1:45 PM CDT [facility] [place] [id number] Jacinto Hamilton MD [address] [place], [place] [id number] Fracture (CLOSED FRACTURE OF DISTAL RIGHT FIBULA (DOI: 12/28/2021) Social History Tobacco Use Types Packs/Day Years [...] Sign Reading Time Taken Comments Blood Pressure - - Pulse - - Temperature - - Respiratory Rate - - Oxygen Saturation - - Inhaled Oxygen Concentration - - Weight 92.1 kg (203 lb) 03/26/2022 1:42 PM CDT Height 167.6 cm (5' 6 ) 03/26/2022 1:42 PM CDT Body Mass Index 32.77 03/26/2022 1:42 PM CDT documented in this encounter Functional Status * RETIRED Are [...] documented in this encounter Progress Notes * Jacinto Hamilton MD - 03/26/2022 1:45 PM CDT Chief Complaint: Fracture (CLOSED FRACTURE OF DISTAL RIGHT FIBULA (DOI: 12/28/2021) History of Present Illness: Mendez Lay is a 66-year-old male who presents to the office for Fracture (CLOSED FRACTURE OF DISTAL RIGHT FIBULA (DOI: 12/28/2021) Patient returns today for follow up RIGHT ankle fracture. He denies any pain. He denies any swelling, bruising, numbness or tingling. He is sleeping well. He does take Hydrocodone at night time only.He is using a cane to walk, but uses a walker at times at home at night. He has just finished his therapy. ROS: See HPI for pertinent positives Problem List: Patient Active Problem List Diagnosis ??? S/P ablation of atrial fibrillation ??? LV dysfunction ??? Essential hypertension ??? Mixed hyperlipidemia ??? Diabetes mellitus, type II (CMS/HCC) ??? Coronary artery disease involving [place] coronary artery of mus[place]ee heart without angina pectoris ??? COPD (chronic obstructive pulmonary disease) (CMS/HCC) ??? Carotid disease, bilateral (CMS/HCC) ??? Arthritis ??? Aortic stenosis ??? Chronic anticoagulation ??? Chronic atrial fibrillation (CMS/HCC) ??? S/P aortic valve replacement with bioprosthetic valve ??? Varicose veins of bilateral lower extremities with other complications ??? Abnormal ankle brachial index (STELLA) ??? Claudication (CMS/HCC) ??? Pain in both lower extremities ??? Abnormal finding on lung imaging ??? Abnormal finding on pulmonary function testing ??? Shortness of breath ??? TIA (transient ischemic attack) ??? Obstructive sleep apnea (adult) (pediatric) ??? Pulmonary hypertension (CMS/HCC) ??? Asymptomatic carotid artery stenosis, bilateral ??? Mild persistent asthma without complication ??? Leg edema ??? Other closed fracture of distal end of right fibula with routine healing, subsequent encounter ??? NSTEMI (non-ST elevated myocardial infarction) (CMS/HCC) ??? Elevated troponin ??? Elevated brain natriuretic peptide (BNP) level ??? Fall History: Past Medical History: Diagnosis Date ??? Abnormal ankle brachial index (STELLA) ??? Acute on chronic heart failure, unspecified heart failure type (CMS/HCC) ??? Anxiety ??? Aortic valve stenosis ??? Arthritis ??? Asthma, mild persistent 04/06/2021 ??? Atrial fibrillation (CMS/HCC) s/p PVI/WACA 10/2015 ??? Bilateral leg pain ??? Carotid disease, bilateral (CMS/HCC) ??? CHF (congestive heart failure) (CMS/HCC) ??? Claudication (CMS/HCC) ??? COPD (chronic obstructive pulmonary disease) (CMS/HCC) ??? Coronary artery disease ??? Diabetes mellitus, type II (CMS/HCC) ??? Edema 04/19/2018 2+ pitting ??? History of blood transfusion ??? Hyperlipidemia ??? Hypertension ??? LV dysfunction ??? Osteoarthritis ??? PAD (peripheral artery disease) (CMS/HCC) ??? Pneumonia ??? Restless leg syndrome ??? S/P aortic valve replacement with bioprosthetic valve 2013 1999, 2013 ??? SOB (shortness of breath) ??? Stroke (CMS/HCC) ??? Varicose veins of bilateral lower extremities with other complications ??? Weight gain with edema Past Surgical History: Procedure Laterality Date ??? APPENDECTOMY ??? CARDIAC VALVE REPLACEMENT 1999 ??? CARDIAC VALVE REPLACEMENT 2013 ??? CARDIOVERSION EXTERNAL 10/01/2015 ??? CARDIOVERSION EXTERNAL 04/14/2012 ??? COLONOSCOPY N/A 03/18/2021 COLONOSCOPY (Incomplete) performed by Kilo Navarro MD at [facility] OR ??? COLONOSCOPY N/A 01/27/2022 COLONOSCOPY WITH COLD SNARE POLYPECTOMY performed by Kilo Navarro MD at [facility] OR ??? HIP ARTHROPLASTY Left ??? KNEE ARTHROPLASTY Bilateral ??? REPAIR ROTATOR CUFF W/ OR W/O ACROMIOPLASTY Left ??? USE NEMO+CARDIOVERSION 03/24/2016 ??? XA A-FIB ABLATION 10/23/2015 PVI/WACA Family History Problem Relation Name Age of Onset ??? TB Mother Family Status Relation Name Status ??? Mother ??? Father ??? Sister Alive ??? Brother Alive ??? MGM ??? MGF ??? PGM ??? PGF Social History Socioeconomic History ??? Marital status: Spouse name: Ema ??? Number of children: 2 Occupational History Employer: NOT EMPLOYED Tobacco Use ??? Smoking status: Former Smoker Quit date: 1980 Years since quittin.6 ??? Smokeless tobacco: Former User Types: Chew Vaping Use ??? Vaping Use: Never used Substance and Sexual Activity ??? Alcohol use: Yes Comment: 6 beers per week ??? Drug use: No Other Topics Concern ??? Exercise No ??? Special Diet No ??? Caffeine Concern No Medications: Current Outpatient Medications: ??? albuterol sulfate HFA 108 (90 Base) MCG/ACT inhaler, Inhale 1 puff into the lungs every 6 (six)hours as needed. , Disp: , Rfl: ??? allopurinol 300 MG tablet, Take 300 mg by mouth daily. , Disp: , Rfl: ??? amlodipine 2.5 MG tablet, Take 1 tablet (2.5 mg total) by mouth daily., Disp: 30 tablet, Rfl: 1 ??? aspirin 81 MG chewable tablet, Chew 81 mg by mouth daily. , Disp: , Rfl: ??? atorvastatin 80 MG tablet, Take 80 mg by mouth nightly at bedtime. , Disp: , Rfl: ??? carvedilol 6.25 MG tablet, Take 12.5 mg by mouth 2 (two) times a day., Disp: , Rfl: ??? clonazePAM 1 MG tablet, Take 1 tablet (1 mg total) by mouth nightly as needed., Disp: 20 tablet, Rfl: 0 ??? docusate sodium 100 MG capsule, Take 100 mg by mouth as needed for Constipation., Disp: , Rfl: ??? Avobjpikhrt-Bbzfwclnw-Vedibu 100-62.5-25 MCG/INH AEROSOL POWDER, BREATH ACTIVATED, Inhale into the lungs daily., Disp: , Rfl: ??? folic acid 1 MG tablet, Take 1 mg by mouth daily., Disp: , Rfl: ??? gabapentin 100 MG capsule, 2 tablets in the morning, 4 tablets in the afternoon, and 6 tablets at bedtime, Disp: , Rfl: ??? glipiZIDE XL 5 MG 24 hr tablet, Take 5 mg by mouth daily with breakfast. Do not break or crush tablet, Disp: , Rfl: ??? HYDROcodone-acetaminophen 5-325 MG tablet, Take 1 tablet by mouth every 6 (six) hours as needed. Indications: Acute Pain < 7 Day Supply, Disp: 20 tablet, Rfl: 0 ??? losartan 50 MG tablet, Take 50 mg by mouth daily. , Disp: , Rfl: ??? Melatonin 10 MG Cap, Take 10 mg by mouth nightly as needed., Disp: , Rfl: ??? metFORMIN 500 MG tablet, Take 500 mg by mouth 2 (two) times daily with meals., Disp: , Rfl: ??? nystatin cream, Apply topically as needed. , Disp: , Rfl: ??? pantoprazole EC 40 MG tablet, Take 40 mg by mouth daily., Disp: , Rfl: ??? rOPINIRole 2 MG tablet, Take 4 mg by mouth nightly., Disp: , Rfl: ??? sertraline 50 MG tablet, Take 50 mg by mouth daily., Disp: , Rfl: ??? warfarin 10 MG tablet, Take 5 mg by mouth in the morning. As directed, Disp: , Rfl: No Known Allergies Objective: Body mass index is 32.77 kg/m??. Last Recorded Weight 03/26/22 1342 Weight: 92.1 kg (203 lb) Physical exam: Constitutional: Alert and in no acute distress. Neurological: The patient was oriented to person, place, and time. Eyes: The sclera and conjunctiva were normal ENT: Hearing was normal. Neck: The appearance of the neck was normal. Cardiovascular: Normal pulses. Pulmonary: No respiratory distress. Skin: No injuries or skin lesion. Musculoskeletal: Patient demonstrates a symmetric gait pattern and is using a cane in his left hand. Ankle range of motion is good and there is no swelling Results: Assessment: Encounter Diagnose(s) ICD-10-CM ICD-9-CM SNOMED CT(R) 1. Other closed fracture of distal end of right fibula with routine healing, subsequent encounter S82.831D V54.16 CLOSED FRACTURE OF DISTAL FIBULA 2. Balance disorder R26.89 781.99 IMPAIRMENT OF BALANCE Plan: Patient indicates that therapy has been somewhat helpful to improve his balance and he is continuing to do the home exercises now that he is finished up with therapy. He reports no issues in regard to his right ankle. He will return as needed Follow up: Return if symptoms worsen or fail to improve. JACINTO HAMILTON MD documented in this encounter Plan of Treatment Upcoming Encounters Date Type Department Care Team (Late st Contact Info) Description 09/25/2024 2:00 PM EPIC AMBULATORY ANALYST Appointment [facility] [address] [place] [address] Zayra Powell, SOUND TRUCK OPERATOR [address] [place] [address] 10/16/2024 3:30 PM EPIC AMBULATORY ANALYST Office Visit [facility] [address] [place] [address] Brit Gonzáles MD [address] [place] [address] documented as of this encounter Visit Diagnoses Diagnosis Other closed fracture of distal end of right fibula with routine healing, subsequent encounter- Primary Balance disorder Other symptoms involving nervous and musculoskeletal systems documented in this encounter Additional Health Concerns Assessment Noted Time PHQ-9 Depression Total Score: 0 12/02/19 22 1:18 PM CDT documented as of this encounter Care Teams Water Superintendent Relationship Specialty Start Date End Date Megan Infante MD [address] [place] [address] PCP - General FAMILY PRACTICE 04/06/16 Piyush Pandey MD [place] Roller Embosser CARDIOVASCULAR DISEASE 04/06/16 12/28/23 Sharmila Davis APRN, SPINDLE FRAME CARVER-C [address] [facility] [address] [place] [address] NURSE PRACTITIONER 01/04/17 04/03/24 Linda Block MD [address] [facility] [address] [place] [phone] [place] Roller Embosser CLINICAL CARDIAC ELECTROPHYSIOLOGY 02/08/17 04/12/23 Jeff Grace MD [address] [place] [address] Consulting Physician INTERNAL MEDICINE 02/20/19 3 Zaki Ortiz MD [address] [place] [address] Consulting Physician PULMONARY DISEASE 07/12/19 documented as of this encounter
--- OUTSIDE RECORDS SUMMARY | 2024-09-03 19:11 | XMS_ITS | Encounter Summary ---
Author Organization [facility] Address [address] [place] [address]. [place] [address] [place] [address] Care Team Providers Care Banking Teacher Name Role Phone Piyush Pandey MD Unavailable Unavailabl e Megan Infante MD Primary Care Provider [phone] Sharmila Davis APRN ACCOUNT RECEIVABLE CLERK-C Unavailable [phone] Linda Block MD Unavailable [phone] Jeff Grace MD Unavailable Zaki Ortiz MD Unavailable [phone] Reason for Visit * Reason Onset Date Comments Appointment Request 12/14/2022 Encounter Details Date Type Department Care Team (Late st Contact Info) Description 12/14/2022 Telephone [facility] ld [address] [place] [address] Piyush Pandey MD Appointment Request Social History Tobacco Use Types Packs/Day Years [...] Assessment Author Status No 02/01/2022 5:00 AM Sona Deleon RN Active documented as of this encounter Mental Status * Because of a physical, mental, or emotional condition, do you have serious difficulty concentrating, remembering, or making decisions? Answer Entry Date Author Status No 02/01/2022 5:00 AM Sona Deleon RN Active documented in this encounter Progress Notes * Fina Alexandra - 12/14/2022 2:47 PM CDT VOICEMAIL Date: 12/14/22 Time: 1:45 Who is calling: Dr. Infante office Phone number: [phone] Message: the office is calling to get pt a sooner appt that 02/08/23 How handled called the office the pt has gained about 15 lbs in less than 2 months pt has lost 5-10lbs from having Furosamide. Pt is having neck surgery on 01/01/23 and will also need a pre op appt.Called the pt to schedule an appt with Sharmila in [place]. Pt will come to [place] to see Sharmila on 12/28/22 @ 10:30. Reminder letter has been sent to pt. documented in this encounter Plan of Treatment Upcoming Encounters Date Type Department Care Team (Late st Contact Info) Description 09/25/2024 2:00 PM LINSEED OIL PRESS TENDER Appointment [facility] [address] [place] [address] Zayra Powell, ELECTRONICS DESIGN ENGINEER [address] [place], [place] [id number] 10/16/2024 3:30 PM LINSEED OIL PRESS TENDER Office Visit [facility] [address] [place] [address] Brit Gonzáles MD [address] [place] [address] documented as of this encounter Visit Diagnoses Not on filedocumented in this encounter Additional Health Concerns Assessment Noted Time PHQ-9 Depression Total Score: 0 12/02/19 22 1:18 PM CDT documented as of this encounter Care Teams Banking Teacher Relationship Specialty Start Date End Date Megan Infante MD [address] [place] [address] PCP - General FAMILY PRACTICE 04/06/16 Piyush Pandey MD [place] Parts Salesperson CARDIOVASCULAR DISEASE 04/06/16 12/28/23 Sharmila Davis APRN, ACCOUNT RECEIVABLE CLERK-C [address] [facility] [address] [place] [phone] NURSE PRACTITIONER 01/04/17 04/03/24 Linda Block MD [address] [facility] [address] [place] [address] [place] [employer] Salesperson CLINICAL CARDIAC ELECTROPHYSIOLOGY 02/08/17 04/12/23 Jeff Grace MD [address] [facility] [address] [place] [address] Consulting Physician INTERNAL MEDICINE 02/20/19 3 Zaki Ortiz MD [address] [facility] [address] [place] [phone] Consulting Physician PULMONARY DISEASE 07/12/19 documented as of this encounter
--- OUTSIDE RECORDS SUMMARY | 2024-09-03 19:11 | XMS_ITS | Encounter Summary ---
Author Organization [facility] Address [address] [place] [address]. [place] [address] [place] [address] Care Team Providers Care Childhood Development Teacher Name Role Phone Piyush Pandey MD Unavailable Unavailabl e Megan Infante MD Primary Care Provider [phone] Sharmila [place] APRN, NP-C Unavailable Linda Block MD Unavailable [phone] Jeff Grace MD Unavailable Zaki Ortiz MD Unavailable [phone] Reason for Visit * Reason Comments Follow Up Encounter Details Date Type Department Care Team (Late st Contact Info) Description 04/15/2022 11:15 AM CDT Office Visit [facility] [place] [phone] Piyush Pandey MD Follow Up Social History [...] suspected to have Coronavirus/COVID-19? No / Unsure 04/15/2022 9:11 AM CDT documented as of this encounter Last Filed Vital Signs Vital Sign Reading Time Taken Comments Blood Pressure 148/70 04/15/2022 11:15 AM CDT Pulse 59 04/15/2022 11:15 AM CDT Temperature - - Respiratory Rate 16 04/15/2022 11:15 AM CDT Oxygen Saturation 98% 04/15/2022 11:15 AM CDT Inhaled Oxygen Concentration - - Weight 95.3 kg (210 lb) 04/15/2022 11:15 AM CDT Height 167.6 cm (5' 6 ) 04/15/2022 11:15 AM CDT Body Mass Index 33.89 04/15/2022 11:15 AM CDT documented in this encounter Functional [...] Progress Notes * Piyush Pandey MD - 04/15/2022 11:15 AM CDT Reason for Visit: Follow Up History [...] needed for Constipation., Disp: , Rfl: ??? Qaapyqcfeeg-Ustnddmrs-Taqfie 100-62.5-25 MCG/INH AEROSOL POWDER, BREATH ACTIVATED, Inhale [...] crush tablet, Disp: , Rfl: ??? HYDROcodone-acetaminophen (NORCO) 7.5-325 MG tablet, , Disp: , Rfl: ??? losartan 50 MG tablet, Take 50 [...] Rfl: ??? traZODone (DESYREL) 100 MG tablet, , Disp: , Rfl: ??? warfarin 10 MG tablet, Take 5 mg by mouth in the morning. As directed, Disp: , Rfl: No Known Allergies Past [...] performed by Kilo Navarro MD at [facility] OR ??? COLONOSCOPY N/A 01/27/2022 COLONOSCOPY WITH COLD SNARE POLYPECTOMY performed by Kilo Navarro MD at [facility] OR ??? HIP ARTHROPLASTY Left ??? KNEE ARTHROPLASTY Bilateral ??? REPAIR ROTATOR CUFF W/ OR W/O ACROMIOPLASTY Left ??? USE NEMO+CARDIOVERSION 03/24/2016 ??? XA A-FIB ABLATION 10/23/2015 PVI/WACA Social History Tobacco Use ??? Smoking status: Former Smoker [...] PGM ??? PGF Review of Systems Constitutional: Positive for fatigue and weakness. Negative for recent unintentional weight gain and recent unintentional weight loss. HENT: Negative for new or significant hearing loss. Eyes: Negative for blurred vision and double vision. Respiratory: Positive for shortness of breath (with exertion). Negative for cough and snoring. Cardiovascular: See HPI. Positive for chest pain and palpitations. Gastrointestinal: Negative for blood in stool and melena. Genitourinary: Negative for dysuria. Musculoskeletal: Positive for joint stiffness/pain. Negative for myalgias. Skin: Negative for rash. Neurological: Negative for tingling/numbness and focal weakness. Endo/Heme/Allergies: Negative for new or significant bruising/bleeding and polydipsia. Psychiatric/Behavioral: Negative for depression and new or significant memory loss. Vitals: 04/15/22 1115 BP: (!) 148/70 BP Location: Right arm Pulse: 59 Weight: 95.3 kg (210 lb) Height: 5' 6 (1.676 m) Body mass index is 33.89 kg/m??. Cardiac Exam Rate/Rhythm: Normal rate. An irregular rhythm present. PMI: PMI is not displaced. Pulses: Normal [...] rash. No cyanosis. No clubbing. No xanthoma. Scars on knees bilaterally. Musculoskeletal: No kyphosis. Normal ROM. Wheelchair/cane/walker. Neurological: Alert. Oriented x 3. Appropriate mood and affect. Normal motor skills. Normal gait. Comments: The documentation for the above exam was created using a template entered by ancillary staff however the physical exam was completed entirely by the provider responsible for this visit. Thephysical exam documentation was reviewed and modified by the provider to reflect his/her findings. Diagnoses/Impression: No diagnosis found. Referring Provider: No ref. provider found PCP: MEGAN INFANTE MD TH DIAGNOSTICS TEACHER * Piyush Pandey MD - 04/15/2022 12:00 AM CDT HISTORY OF PRESENT ILLNESS: Mr. Lay is seen in the cardiology clinic today for a scheduled followup visit. He reports that he is actually doing much better than he has done in the past. Mr. Lay relates that he has lost approximately 30 pounds and he feels as though this has helped his overall wellbeing. He continues to have some weakness in his legs but everything else seems to have improved. He occasionally has chest pain but this is atypical in nature. He denies any true shortness of breath although when he moves around too much, he does feel somewhat short of breath. He has some paroxysmal nocturnal dyspnea occasionally and wears oxygen at night. He often sleeps in a chair and does state that he has some mild pedal edema. He denies any palpitations, syncope, or near syncope. He is tolerating his present medications well. A review of the available records showed an ech ocardiogram performed in January of this year which showed normal left ventricular size with a calculated left ventricular ejection fraction of 54%. Right ventricular systolic function was felt to be depressed with a calculated right ventricular systolic pressure of 34 plus right atrial pressure. The peak velocity across the aortic bioprosthetic valve was 2.88 meters per second with a mean gradient of 21 mmHg and a calculated aortic valve area of 1.14 cm2. A Regadenoson nuclear stress test from January of this year showed a fixed perfusion defect in the inferior and basal inferolateral knox. No ischemia was identified and the calculated left ventricular ejection fraction was 51%. ABIs performed in November of this year was difficult due to circumferentially calcified blood vessels at the ankle level bilaterally. The TBI was within the normal range on the left and was diminished at 0.61 on the right. A chest x-ray in January of this year showed stable cardiomegaly and mild pulmonary vascular congestion. Carotid Doppler studies from November of this year showed widely patent carotid arteries bilaterally. Vertebral flows could not be identified bilaterally. RECOMMENDATION AND PLAN: Mr. Lay's cardiac status appears clinically stable at the present time without significant ongoing anginal chest pain, overt symptoms of congestive heart failure, or clinical evidence of hemodynamically significant arrhythmias. His weight loss has helped his overall wellbeing and has increased his activity level. He looks remarkably better than when I last saw him in the cardiology clinic. Continued medical therapy and aggressive cardiac risk factor modification seemmost appropriate at the present time. I have recommended the following to Mr. Lay: 1. Continue present medical regimen without alteration. 2. I have encouraged Mr. Lay to monitor his blood pressure at home as it was somewhat elevated during the clinic visit today. A reasonable goal would be to try to maintain a blood pressure of lessthan 130/80 mmHg if possible. 3. Return to the cardiology clinic for routine followup in 6 months. I have encouraged Mr. Lay to contact me in the meantime should he have any questions or problems. #[id number] /MONIQUE TH DIAGNOSTICS TEACHER documented in this encounter Plan of Treatment Upcoming Encounters Date Type Department Care Team (Late st Contact Info) Description 09/25/2024 2:00 PM HEALTH DIAGNOSTICS TEACHER Appointment 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 S/P aortic valve replacement with bioprosthetic valve Heart valve replaced by other means Chronic atrial fibrillation ([facility]) Atrial fibrillation S/P ablation of atrial fibrillation Other postprocedural status Essential hypertension Unspecified essential hypertension Mixed hyperlipidemia Obstructive sleep apnea (adult) (pediatric) Chronic obstructive pulmonary disease, unspecified COPD type ([facility]) documented in this encounter Additional Health Concerns Assessment Noted Time PHQ-9 Depression Total Score: 0 12/02/19 22 1:18 PM CDT documented as of this encounter Care Teams Childhood Development Teacher Relationship Specialty Start Date End Date Megan Infante MD [address] [facility] [place] [address] PCP - General FAMILY PRACTICE 04/06/16 Piyush Pandey MD [place] Senior Copywriter CARDIOVASCULAR DISEASE 04/06/16 12/28/23 Sharmila Davis APRN, WELLNESS EDUCATOR-C [address] [facility] [address] [place] [address] NURSE PRACTITIONER 01/04/17 04/03/24 Linda Block MD [address] [facility] [address] [place] [phone] [place] Senior Copywriter CLINICAL CARDIAC ELECTROPHYSIOLOGY 02/08/17 04/12/23 Jeff Grace MD [address] [place] [phone] Consulting Physician INTERNAL MEDICINE 02/20/19 3 Zaki Ortiz MD [address] [place] [address] Consulting Physician PULMONARY DISEASE 07/12/19 documented as of this encounter
--- OUTSIDE RECORDS SUMMARY | 2024-09-03 19:11 | XMS_ITS | Encounter Summary ---
Author Organization [facility] Address [facility] [place] [address] [place] [address] Care Team Providers Care Gun Sealing Machine Operator Name Role Phone Piyush Pandey MD Unavailable Unavailabl e Megan Infante MD Primary Care Provider [phone] Sharmila Davis APRN FLOOR TRADER-C Unavailable [phone] Linda Block MD Unavailable [phone] Jeff Grace MD Unavailable Zaki Ortiz MD Unavailable [phone] Romeo-Concetta Pond MD Unavailable + [phone] Reason for Visit * Reason Comments Outside Record (SCAN) Encounter Details Date Type Department Care Team (Late st Contact Info) Description 11/19/2022 Scan [facility] jorge [address] [place] [id number] Scanned, Doc Pccl Outside Record (SCAN) Social [...] place to sleep or slept in a residential (including now)? No 12/28/2022 Sex and Gender [...] st Contact Info) Description 09/25/2024 2:00 PM CHIEF OF SURGERY Appointment [facility] [address] [place] [address] Zayra Powell, HOUSE WRECKER [address] [place] [address] 10/16/2024 3:30 PM CHIEF OF SURGERY Office Visit [facility] [address] [place] [address] Brit Gonzáles MD [address] [place], [place] [id number] documented as of this encounter Visit Diagnoses Not on filedocumented in this encounter Additional Health Concerns Infection Onset Date Last Indicated Resolved Time COVID-19 Rule Out 01/04/2023 01/04/2023 01/04/2023 10:12 AM CDT Assessment Noted Time PHQ-9 Depression Total Score: 0 12/02/19 22 1:18 PM CDT documented as of this encounter Care Teams Gun Sealing Machine Operator Relationship Specialty Start Date End Date Megan Infante MD [address] [facility] [place] [address] PCP - General FAMILY PRACTICE 04/06/16 Piyush Pandey MD [place] Ham Stripper CARDIOVASCULAR DISEASE 04/06/16 12/28/23 Sharmila Davis APRN, FLOOR TRADER-C [address] [place] [address] NURSE PRACTITIONER 01/04/17 04/03/24 Linda Block MD [address] [place] [address] [place] [employer]pper CLINICAL CARDIAC ELECTROPHYSIOLOGY 02/08/17 04/12/23 Jeff Grace MD [address] [place] [address] Consulting Physician INTERNAL MEDICINE 02/20/19 3 Zaki Ortiz MD [address] [place] [address] Consulting Physician PULMONARY DISEASE 07/12/19 Concetta Acevedo MD [address] [place] [address] Surgeon NEUROLOGICAL SURGERY 12/16/22 documented as of this encounter
--- OUTSIDE RECORDS SUMMARY | 2024-09-03 19:11 | XMS_ITS | Encounter Summary ---
Author Organization [facility] Address [address] [place] [address]. [place] [address] [place] [address] Care Team Providers Care Lining Inserter Name Role Phone Piyush Pandey MD Unavailable Unavailabl e Megan Infante MD Primary Care Provider [phone] Sharmila Davis APRN, NP-C Unavailable Linda Block MD Unavailable [phone] Jeff Grace MD Unavailable Zaki Ortiz MD Unavailable [phone] Romeo-Concetta Pond MD Unavailable + [phone] Reason for Visit * Reason Onset Date Comments Surgical Clearance 12/16/2022 Warfarin lori mmendation also Encounter Details Date Type Department Care Team (Late st Contact Info) Description 12/16/2022 Telephone [facility] [address] [place] [address] Piyush Pandey MD Surgical Clearance (Warfarin recommendation also) Social History Tobacco Use Types Packs/Day Years [...] Progress Notes * Marcella Freitas RN - 12/16/2022 2:18 PM CDT Returned call to Tamar, given instructions regarding INR, holding coumadin as noted Made aware patient has appointment 12/28 for clearance. Expressed understanding * Sharmila Davis APRN, PARKING INSPECTOR-C - 12/16/2022 12:23 PM CDT Our preop appointment is a little late for warfarin instructions. INR on 11/09/22 was 4.0. Needs INRchecked a week before procedure. If >3.0, warfarin should be held for 5-7 days prior to surgery.If INR 2-3, hold 5 days prior to the surgery. Restart postoperatively when safe from a bleeding standpoint. We will cover remaining preop instructions in clinic. * Bethanie Lay - 12/16/2022 11:36 AM CDT Tamar with Dr. Pond's office called inquiring about clearance for C40C5 fusion on 01/01. Also needs warfarin instructions. I told her he has an appt with the PARKING INSPECTOR on 12/28 and those instructions will be in his clinic note. documented in this encounter Plan of Treatment Upcoming Encounters Date Type Department Care Team (Late st Contact Info) Description 09/25/2024 2:00 PM MASTER COSMETOLOGIST Appointment [facility] [address] [place] [address] Zayra Powell, SLOOP CAPTAIN [address] [place] [address] 10/16/2024 3:30 PM MASTER COSMETOLOGIST Office Visit [facility] [address] [place] [phone] Brit Gonzáles MD [address] [place] [address] documented as of this encounter Visit Diagnoses Not on filedocumented in this encounter Additional Health Concerns Assessment Noted Time PHQ-9 Depression Total Score: 0 12/02/19 22 1:18 PM CDT documented as of this encounter Care Teams Lining Inserter Relationship Specialty Start Date End Date Megan Infante MD [address] [place] [phone] PCP - General FAMILY PRACTICE 04/06/16 Piyush Pandey MD [place] Order Scheduler CARDIOVASCULAR DISEASE 04/06/16 12/28/23 Sharmila Davis APRN, PARKING INSPECTOR-C [address] [phone] NURSE PRACTITIONER 01/04/17 04/03/24 Linda Block MD [address] [address] [place] Order Scheduler CLINICAL CARDIAC ELECTROPHYSIOLOGY 02/08/17 04/12/23 Jeff Grace MD [address] [address] Consulting Physician INTERNAL MEDICINE 02/20/19 3 Zaki Ortiz MD [address] [phone] Consulting Physician PULMONARY DISEASE 07/12/19 Concetta Acevedo MD [address] [place] [address] Surgeon NEUROLOGICAL SURGERY 12/16/22 documented as of this encounter
--- OUTSIDE RECORDS SUMMARY | 2024-09-03 19:11 | XMS_ITS | Encounter Summary ---
Author Organization [facility] Address [facility] [place] [address] [place] [address] Care Team Providers Care Enterprise Infrastructure Architect Name Role Phone Piyush Pandey MD Unavailable Unavailabl e Megan Infante MD Primary Care Provider [phone] Sharmila Davis APRN, NP-C Unavailable [phone] Linda Block MD Unavailable [phone] Jeff Grace MD Unavailable Zaki Ortiz MD Unavailable [phone] Romeo-Concetta Pond MD Unavailable + [phone] Encounter Details Date Type Department Care Team (Latest Contact Info) Description 12/28/2022 Travel Social History Tobacco Use Types Packs/Day [...] or climbing stairs? Yes 12/28/2022 6:30 PM Prin abhishek Stewart RN Active * Question Answer Date of Assessment Author Status Do you have difficulty dressing or bathing? No 12/28/2022 6:30 PM Caitlin Stewart RN Active Because of a physical, mental, or emotional condition, do you have difficulty doing errands alone such as visiting a doctor's office or shopping? No 12/28/2022 6:30 PM Prin abihshek Stewart RN Active * Are you deaf or do you have serious difficulty hearing Answer Date of Assessment Author Status No 12/28/2022 6:30 PM Inga Stewart RN Active * Are you blind or do you have serious difficulty seeing, even when wearing glasses? Answer Date of Assessment Author Status No 12/28/2022 6:30 PM Inga Stewart RN Active * Do you have serious difficulty walking or climbing stairs? Answer Date of Assessment Author Status Yes 12/28/2022 6:30 PM Inga Stewart RN Active * Do you have difficulty dressing or bathing? Answer Date of Assessment Author Status No 12/28/2022 6:30 PM Inga Stewart RN Active * Because of a physical, [...] or making decisions? No 12/28/2022 6:30 PM Caitlin Stewart RN Active * Because of a physical, mental, or emotional condition, do you have serious difficulty concentrating, remembering, or making decisions? Answer Entry Date Author Status No 12/28/2022 6:30 PM Inga Stewart RN Active documented in this encounter Plan of Treatment Upcoming Encounters Date Type Department Care Team (Late st Contact Info) Description 09/25/2024 2:00 PM PROSTHETIST Appointment [facility] [address] [place] [address] Zayra Powell, DIRECTOR FINANCIAL ANALYSIS [address] [place] [address] 10/16/2024 3:30 PM PROSTHETIST Office Visit [facility] [address] [place] [address] Brit Gonzáles MD [address] [place], [place] [phone] documented as of this encounter Visit Diagnoses Not on filedocumented in this encounter Additional Health Concerns Assessment Noted Time PHQ-9 Depression Total Score: 0 12/02/19 22 1:18 PM CDT documented as of this encounter Care Teams Enterprise Infrastructure Architect Relationship Specialty Start Date End Date Megan Infante MD [address] [place] [address] PCP - General FAMILY PRACTICE 04/06/16 Piyush Pandey MD [place] Internal Combustion Engine Subassembler CARDIOVASCULAR DISEASE 04/06/16 12/28/23 Sharmila Davis, DANNY, MANUFACTURING TEST TECHNICIAN-C [address] [facility] [address] [place] [address] NURSE PRACTITIONER 01/04/17 04/03/24 Linda Block MD [address] [facility] [address] [place] [phone] [place] Internal Combustion Engine Subassembler CLINICAL CARDIAC ELECTROPHYSIOLOGY 02/08/17 04/12/23 Jeff Grace MD [address] [facility] [address] [place] [address] Consulting Physician INTERNAL MEDICINE 02/20/19 3 Zaki Ortiz MD [address] [facility] [address] [place] [address] Consulting Physician PULMONARY DISEASE 07/12/19 Concetta Acevedo MD [address] [place] [address] Surgeon NEUROLOGICAL SURGERY 12/16/22 documented as of this encounter
--- OUTSIDE RECORDS SUMMARY | 2024-09-03 19:11 | XMS_ITS | Encounter Summary ---
Author Organization [facility] Address [address] [place] [address]. [place] [address] [place] [address] Care Team Providers Care Inspector Balance Bridge Name Role Phone Piyush Pandey MD Unavailable Unavailabl e Megan Infante MD Primary Care Provider [phone] Sharmila Davis APRN AIRWAY CONTROLLER-C Unavailable Linda Block MD Unavailable [phone] Jeff Grace MD Unavailable Zaki Ortiz MD Unavailable [phone] Romeo-Concetta Pond MD Unavailable + [phone] Encounter Details Date Type Department Care Team (Late st Contact Info) Description 12/24/2022 2:35 PM CDT - 12/24/2022 11:59 PM CDT Hospital Encounter [facility] [place] [address] Katina Beltran MD [address] [place] [address] Discharge Disposition: Home or Self Care (Routine [...] Status No 02/01/2022 5:00 AM SKYLART Sona Lna RN Active * Because of a physical, [...] mouth as needed for Constipation. folic acid 1 MG tablet Take 1 tablet (1 mg total) by mouth daily. 3 furosemide (LASIX) 80 MG tablet TAKE 1 1/2 TABLETS (120 MG) DAILY FOR 2 DAYS, THEN TAKE 1 TABLET (80 MG) DAILY 31 tablet 11 11/11/2022 3 gabapentin (NEURONTIN) 100 MG capsule Take 6 capsules (600 mg total) by mouth daily. 12/14/2022 3 gabapentin 100 MG capsule 2 capsules in the morning, 4 capsules in the afternoon, and 8 capsules at bedtime 02/25/2017 3 glipiZIDE XL (GLUCOTROL XL) 5 MG 24 hr tablet 2 tablets (10 mg total). 1-2 tablets daily in am 09/29/2022 3 HYDROcodone-acet aminophen (NORCO) 7.5-325 MG tablet Take 1 tablet by mouth 2 (two) times daily as needed. 03/28/2022 3 hydrOXYzine (ATARAX) 50 MG tablet Take 1 tablet (50 mg total) by mouth 3 (three) times daily. As needed 10/09/2022 insulin detemir (LEVEMIR FLEXPEN) 100 UNIT/ML PEN Inject into the skin as needed (only uses inslin if he needs it he states). 3 JARDIANCE 25 MG tablet Take 1 tablet (25 mg total) by mouth daily. 10/31/2022 losartan 50 MG tablet Take 1 tablet (50 mg total) by mouth daily. 12/02/2018 3 metFORMIN 500 MG tablet Take 1 [...] st Contact Info) Description 09/25/2024 2:00 PM [address]ER Appointment [facility] [address] [place] [address] [address] Zayra Powell, TEACHER PRIVATE [address] [place] [address] 10/16/2024 3:30 PM TRIPE FINISHER Office Visit [facility] [address] [place] [address] [address] Brit Gonzáles MD [address] [place] [address] documented as of this encounter Procedures Procedure Name Priority Date/Time Associated Diagnosis Comments EOSINOPHIL COUNT, URINE Routine 12/25/19 3:10 PM CDT Decreased GFR ALBUMIN URINE RANDOM W/CREATININE Routine 12/24/2022 3:10 PM CDT Decreased GFR ANCA VASCULITIS PANEL Routine 12/24/2022 3:05 PM CDT Decreased GFR ANTINUCLEAR ANTIBODY WI RFX Routine 12/24/2022 3:05 PM CDT Decreased GFR COMPLEMENT C4 Routine 12/24/2022 3:05 PM CDT Decreased GFR COMPLEMENT C3 Routine 12/24/2022 3:05 PM CDT Decreased GFR PTH - INTACT Routine 12/24/2022 3:05 PM CDT Decreased GFR ANTI-GBM Routine 12/24/2022 3:05 PM CDT Decreased GFR RENAL FUNCTION PANEL Routine 12/24/2022 3:05 PM CDT Decreased GFR IMMUNOFIXATION Routine 12/24/2022 3:05 PM CDT Decreased GFR HEPATITIS C ANTIBODY Routine 12/24/2022 3:05 PM CDT Decreased GFR HEPATITIS B SURFACE AG, EIA Routine 12/24/2022 3:05 PM CDT Decreased GFR CBC W/DIFF AUTOMATED Routine 12/24/2022 3:05 PM CDT Decreased GFR VITAMIN D, 25 OH Routine 12/24/2022 3:05 PM CDT Decreased GFR CKD (chronic kidney disease), stage III (CMS/HCC HHS/HCC) documented in this encounter Results * (ABNORMAL) EOSINOPHIL COUNT, URINE (12/24/2022 3:10 PM CDT) EOSINOPHIL, URINE <1(A) <1 % 12/25/2022 2:35 PM CDT [facility] Comment:NORMAL URINE SPECIMEN / Unknown 12/24/2022 3:10 PM CDT Katina Beltran MD URINE ORDERABLES Final Res ult [facility] [address] [place] [address], [place] [phone] [id number] * (ABNORMAL) ALBUMIN CREATININE URINE RANDOM (12/24/2022 3:10 PM CDT) ALBUMIN (U) 3.1 MG/DL 12/24/2022 3:43 PM CDT [facility] Comment:REFERENCE RANGE NOT ESTABLISHED CREATININE RANDOM (U) 81.6 MG/DL 12/24/2022 3:43 PM CDT [facility] Comment:REFERENCE RANGE NOT ESTABLISHED ALBUMIN/CREAT RATIO 38.0(H) <30 MG/G 12/24/2022 3:43 PM CDT [facility] Comment: NORMAL TO MILDLY INCREASED ALBUMINURIA: <30 MG/G MODERATELY INCREASED ALBUMINURIA: 30 TO 300 MG/G SEVERELY INCREASED ALBUMINURIA: >300 MG/G PER KDIGO URINE SPECIMEN / Unknown 12/24/2022 3:10 PM CDT us Katina Beltran MD URINE ORDERABLES Final Res ult [facility] [address] [place] [address], [place] [phone] * (ABNORMAL) PTH - INTACT (12/24/2022 3:05 PM CDT) PTH 129.7(H) 18.4 - 80.1 PG/ML 12/25/2022 5:39 PM CDT [facility] Comment: ASSAY PERFORMED BY CHEMILUMINESCENCE METHODOLOGY USING SIEMENS CausataAUR XPT REAGENT. PATIENT RESULTS DETERMINED BY ASSAYS USING DIFFERENT MANUFACTURERS FOR METHODS MAY NOT BE COMPARABLE. 12/24/2022 3:05 PM CDT Katina Beltran MD LABORATORY Final Resu Performing Organization Address [facility] Co de Phone Number [facility] [address] [place] [address], [phone] * (ABNORMAL) VITAMIN D, 25 OH (12/24/2022 3:05 PM CDT) [facility] VITAMIN D 25 HYDROXY TOTAL S/P/B 10.4(L) 20.0 - 50.0 NG/ML 12/25/2022 12:30 PM CDT [facility] Comment: <10 ng/mL (Severe deficiency) 10 TO 19 ng/mL (Mild to Moderate deficiency) 20 TO 50 ng/mL (Optimum levels) 51 TO 80 ng/mL (Increased risk of hypercalciuria) >80 ng/mL (Toxicity possible) 12/24/2022 3:05 PM CDT Katina Beltran MD [facility] Per[facility] Organization Address [facility] de Phone Number [facility] [address] [place] [address], [phone] * IMMUNOFIXATION (12/24/2022 3:05 PM CDT) [facility] IMMUNOFIXATION SERUM SEE PATHOLOGIST'S INTERPRETATION 12/28/2022 2:40 PM CDT [facility] IMMUNOFIX (SERUM) INTERPRETATION THIS SERUM IMMUNOTYPING WAS INTERPRETED BY 12/28/2022 3:41 PM CDT [facility] Comment: DR CONNER EDWARDS MD MONOCLONAL PROTEIN NOT IDENTIFIED 12/24/2022 3:05 PM CDT us Katina Beltran MD LABORATORY Final Resu lt Performing Organization Address City/[facility]/ZIP Co de Phone Number [facility] [address] [place] [address], [place] [phone] * HEPATITIS C ANTIBODY (12/24/2022 3:05 PM CDT) HEPATITIS C AB NON-REACTI VE NON-REACT ALEK 12/25/2022 6:28 PM CDT [facility] Comment: ANTIBODIES TO HCV NOT DETECTED. DOES NOT EXCLUDE THE POSSIBILITY OF EXPOSURE TO HCV. 12/24/2022 3:05 PM CDT Katina Beltran MD LABORATORY Final Resu lt Performing Organization Address [facility]/ZIP Co de Phone Number [facility] [address] [place] [address], [place] [phone] * HEPATITIS B SURFACE AG, EIA (12/24/2022 3:05 PM CDT) HEPATITIS B SURFACE AG NON-REACTI VE NON-REACTI VE 12/25/2022 6:28 PM CDT [facility] Comment:HBsAg NOT DETECTED. 12/24/2022 3:05 PM CDT Katina Beltran MD LABORATORY Final Resu lt Performing Organization Address [facility]/ZIP Co de Phone Number [facility] [address] [place] [address], [place] [phone] * ANTI-GBM (12/24/2022 3:05 PM CDT) ANTI-GBM <1.0 <1.0 AI 12/28/2022 8:20 AM CDT [facility] MAURA MARTIN Comment: ?Value ?? Interpretation ? <1.0 AI: No Antibody Detected ?>or=1.0 AI: Antibody Detected Test Performed by [facility], [employer], [address] [place] [address] Bill Blackmon M.D., Ph.D., Director of Laboratories , CLIA [id number] 12/24/2022 3:05 PM CDT Katina Beltran MD LABORATORY Final Resu lt Performing Organization Address [facility]/ZIP Co de Phone Number [facility] , [place] [phone] * COMPLEMENT C4 (12/24/2022 3:05 PM CDT) COMPLEMENT C4 35 15 - 53 mg/dL 12/30/2022 8:27 PM CDT [facility] HARMONVoucherlinkJOSE MARIO Comment: Test Performed by [facility], [employer], [address] [place] [address] Bill Blackmon M.D., Ph.D., Director of Laboratories , CLIA [id number] 12/24/2022 3:05 PM CDT Katina Beltran MD LABORATORY Final Resu lt Performing Organization Address [facility]/ZIP Co de Phone Number [facility] , [place] [phone] * COMPLEMENT C3 (12/24/2022 3:05 PM CDT) Pathologist [facility] COMPLEMENT C3 150 82 - 185 mg/dL 12/30/2022 8:27 PM CDT [facility] MAURA MARTIN Comment: Test Performed by Teagan Martinez [facility] [place], [address] [place], [place] Bill Blackmon M.D., Ph.D., Director of Laboratories , [facility] [id number] 12/24/2022 3:05 PM CDT us Katina Beltran MD LABORATORY Final Resu lt [facility] [place] [address] [place], [place] , [place] [phone] * ANCA VASCULITIS PANEL (12/24/2022 3:05 PM CDT) [facility] ANCA SCREEN Negative Negative 12/30/2022 10:38 PM CDT [facility] CASI LEMUS Comment: ANCA Screen includes evaluation for p-ANCA, c-ANCA and atypical p-ANCA. A positive ANCA screen reflexes to titer and pattern(s), e.g., cytoplasmic pattern (c-ANCA), perinuclear pattern (p-ANCA), or atypical p-ANCA pattern. c-ANCA and p-ANCA are observed in vasculitis, whereas atypical p-ANCA is observed in IBD (Inflammatory Bowel Disease). Atypical p-ANCA is detected in about 55% to 80% of patients with ulcerative colitis but only 5% to 25% of patients with Crohn's disease. MYELOPEROXIDASE AB <1.0 <1.0 AI 2022 10:38 PM CDT [facility] CASI LEMUS Comment: ?Value ?? Interpretation ? <1.0 AI: No Antibody Detected ?>or=1.0 AI: Antibody Detected Autoantibodies to myeloperoxidase (MPO) are commonly associated with the following small-vessel vasculitides: microscopic polyangiitis, polyarteritis nodosa, Churg-Laurie syndrome, necrotizing and crescentic glomerulonephritis and occasionally granulomatosis with polyangiitis (GPA, Sherie's). The perinuclear IFA pattern, (p-ANCA) is based largely on autoantibody to myeloperoxidase which serves as the primary antigen. These autoantibodies are present in active disease. PROTEINASE-3 AB <1.0 <1.0 AI 10:38 PM CDT [facility] CASI LEMUS Comment: ? Value ?Interpretation ? <1.0 AI: No Antibody Detected ?>or=1.0 AI: Antibody Detected Autoantibodies to proteinase-3 (GA-3) are accepted as characteristic for granulomatosis with polyangiitis (GPA, Sherie's), and are detectable in 95% of the histologically proven cases. The cytoplasmic IFA pattern, (c-ANCA), is based largely on autoantibody to GA-3 which serves as the primary antigen. These autoantibodies are present in active disease. Test Performed by [facility] [place], [employer] [facility], [address] [place] [address] Bill Blackmon M.D., Ph.D., Director of Laboratories , [place] [id number] 12/24/2022 3:05 PM CDT us Katina Beltran MD LABORATORY Final Resu lt [place] [facility] [phone] [place], [place] , * ANTINUCLEAR ANTIBODY WI RFX (12/24/2022 3:05 PM CDT) LIANNE 0.3 12/28/2022 1:46 PM CDT [facility] Comment: NEGATIVE: <0.7 RATIO LIANNE PROFILE AND TITER NOT PERFORMED THE LIANNE SCREEN TESTS FOR THE FOLLOWING ANTIBODIES BY EIA: SSA1 (RO), SSB1 (LA), ZAPATA, SCL70, JO1, CENTROMERE, CLEARING TUB WORKER HISTONE MUST BE ORDERED SEPARATELY DNA (DS) ANTIBODY 3.6 IU/ML 023 1:46 PM CDT [facility] Comment: NEGATIVE: <10 IU/mL EQUIVOCAL: 10 to 15 IU/mL POSITIVE: >15 IU/mL THIS QUANTITATIVE ASSAY IS CALIBRATED TO THE [employer]'S WO/80 STANDARD. THE LEVEL OF dsDNA AUTOANTIBODY GERERALLY CORRELATES WITH THE LEVEL OF DISEASE ACTIVITY IN SYSTEMIC LUPUS ERYTHMATOSUS 12/24/2022 3:05 PM CDT Katina Beltran MD LABORATORY Final Resu lt [facility] [address] [place] [address], [phone] * (ABNORMAL) RENAL FUNCTION PANEL (12/24/2022 3:05 PM CDT) SODIUM S/P/B 136 136 - 145 MMOL/L 12/24/2022 3:32 PM CDT [facility] POTASSIUM S/P/B 5.0 3.5 - 5.1 MMOL/L 12/24/2022 3:32 PM CDT [facility] CHLORIDE S/P/B 100 98 - 107 MMOL/L 12/24/2022 3:32 PM CDT [facility] CO2 26.7 21.0 - 32.0 MMOL/L 12/24/2022 3:32 PM CDT [facility] GLUCOSE 99 70 - 99 MG/DL 12/24/2022 3:32 PM CDT [facility] Comment: FASTING GLUCOSE 100 TO 125 MG/DL IS CONSISTENT WITH IMPAIRED FASTING GLUCOSE. FASTING GLUCOSE >125 MG/DL IS CONSISTENT WITH DIABETES. RANDOM GLUCOSE >200 MG/DL WITH HYPERGLYCEMIC SYMPTOMS IS CONSISTENT WITH DIABETES. PER ADA GUIDELINES BUN 38(H) 6 - 24 MG/DL 12/24/2022 3:32 PM CDT [facility] CREATININE S/P/B 2.35(H) 0.70 - 1.30 MG/DL 12/24/2022 3:32 PM CDT [facility] CALCIUM S/P/B 9.3 8.4 - 10.5 MG/DL 12/24/2022 3:32 PM CDT [facility] ALBUMIN S/P/B 3.1(L) 3.4 - 5.0 G/DL 12/24/2022 3:32 PM CDT [facility] PHOSPHORUS 3.9 2.6 - 4.7 MG/DL 12/24/2022 3:32 PM CDT [facility] ANION GAP 9.3 5.0 - 15.0 MMOL/L 12/24/2022 3:32 PM CDT [facility] OSMOLALITY (CALC) 291 MOSM/KG 023 3:32 PM T [facility] Comment:REFERENCE RANGE NOT ESTABLISHED GFR ESTIMATE 29(L) >89 ML/MIN/1. 73 M2 12/24/2022 3:32 PM CDT [facility] GFR NOTES GFR REFERENCE S: 12/24/2022 3:32 PM T [facility] Comment: THE ESTIMATED GFR [...] ml/min/1.73 m2 G5,KIDNEY FAILURE: <15 ml/min/1.73 m2 12/24/2022 3:05 PM CDT Katina Beltran MD LABORATORY Final Resu lt [facility] [address] [place] [address], * (ABNORMAL) CBC W/DIFF AUTOMATED (12/24/2022 3:05 PM CDT) WBC 7.17 4.00 - 10.80 x10'3/uL 12/24/2022 3:19 PM CDT [facility] RBC 3.74(L) 4.50 - 6.10 x10'6/uL 12/24/2022 3:19 PM CDT [facility] HGB 8.6(L) 13.0 - 18.0 G/DL 12/24/2022 3:19 PM CDT [facility] HCT 29.1(L) 37.0 - 52.0 % 12/24/2022 3:19 PM CDT [facility] MCV 77.8(L) 78.0 - 100.0 FL 12/24/2022 3:19 PM CDT [facility] MCH 23.0(L) 27.0 - 31.0 PG 12/24/2022 3:19 PM CDT [facility] MCHC 29.6(L) 33.0 - 36.0 G/DL 12/24/2022 3:19 PM CDT [facility] RDW 17.6(H) 11.5 - 14.5 % 12/24/2022 3:19 PM CDT [facility] PLT 168 150 - 350 x10'3/uL 12/24/2022 3:19 PM CDT [facility] MPV 9.6 7.4 - 10.4 FL 12/24/2022 3:19 PM CDT [facility] CBC COMMENT NORMAL REFERENCE RANGE NOT ESTABLISHED FOR THE PROPORTIONAL LEUKOCYTE DIFFERENTIAL. 12/24/2022 3:19 PM CDT [facility] NEUTROPHILS % 68.8 % 12/24/2022 3:19 PM CDT [facility] LYMPHOCYTES % 17.2 % 12/24/2022 3:19 PM CDT [facility] MONOCYTES % 9.9 % 12/24/2022 3:19 PM CDT [facility] EOSINOPHILS % 3.1 % 12/24/2022 3:19 PM CDT [facility] BASOPHILS % 0.7 % 12/24/2022 3:19 PM CDT [facility] IMMATURE GRANS % 0.3 % 12/25/19 3:19 PM CDT [facility] NRBC 0.0 % 12/24/2022 3:19 PM CDT [facility] ABS. NEUTROPHILS 4.94 1.60 - 8.30 x10'3/uL 12/24/2022 3:19 PM CDT [facility] ABS. LYMPHOCYTES 1.23 0.80 - 4.70 x10'3/uL 12/24/2022 3:19 PM CDT [facility] ABS. MONOCYTES 0.71 0.00 - 1.50 x10'3/uL 12/24/2022 3:19 PM CDT [facility] ABS. EOSINOPHILS 0.22 0.00 - 0.40 x10'3/uL 12/24/2022 3:19 PM CDT [facility] ABS. BASOPHILS 0.05 0.00 - 0.20 x10'3/uL 12/24/2022 3:19 PM CDT [facility] ABS. IMMATURE GRANULOCYTES 0.02 0.00 - 0.03 x10'3/uL 12/24/2022 3:19 PM CDT [facility] ABS. NUCLEATED RBC'S 0.00 0.00 x10'3/uL 12/24/2022 3:19 PM CDT [facility] 12/24/2022 3:05 PM CDT us Katina Beltran MD LABORATORY Final Resu lt [facility] [address] [employer] [place] [address], documented in this encounter Visit Diagnoses Diagnosis Decreased GFR Nonspecific abnormal results of kidney function study CKD (chronic kidney disease), stage III ([facility]) Chronic kidney disease, Stage III (moderate) documented in this encounter Additional Health Concerns Assessment Noted Time PHQ-9 Depression Total Score: 0 12/02/19 22 1:18 PM CDT documented as of this encounter Care Teams Inspector Balance Bridge Relationship Specialty Start Date End Date Megan Infante MD [address] [place] [address] PCP - General FAMILY PRACTICE 04/06/16 Piyush Pandey MD [facility] CARDIOVASCULAR DISEASE 04/06/16 12/28/23 Sharmila Davis, FILLING MACHINE OPERATOR, AIRWAY CONTROLLER-C [address] [phone] NURSE PRACTITIONER 01/04/17 04/03/24 Linda Block MD [address] [address] [facility] CLINICAL CARDIAC ELECTROPHYSIOLOGY 02/08/17 04/12/23 Jeff Grace MD [address] [address] Consulting Physician INTERNAL MEDICINE 02/20/19 3 Zaki Ortiz MD [address] [address] Consulting Physician PULMONARY DISEASE 07/12/19 Concetta Acevedo MD [address] [place] [id number] Surgeon NEUROLOGICAL SURGERY 12/16/22 documented as of this encounter
--- OUTSIDE RECORDS SUMMARY | 2024-09-03 19:11 | XMS_ITS | Encounter Summary ---
Author Organization [facility] Address [facility] [place] [address] [place] [address] Care Team Providers Care Cable Mechanic Name Role Phone Piyush Pandey MD Unavailable Unavailabl e Megan Infante MD Primary Care Provider [phone] Sharmila Davis APRN WET SUIT GLUER-C Unavailable Linda Block MD Unavailable [phone] Jeff Grace MD Unavailable Zaki Ortiz MD Unavailable [phone] Romeo-Concetta Pond MD Unavailable + [phone] Reason for Visit * Reason Comments Outside Record (SCAN) Encounter Details Date Type Department Care Team (Late st Contact Info) Description 10/14/2022 Scan [facility] jorge [address] [place] [phone] Scanned, Doc Pccl Outside Record (SCAN) Social [...] Contact Info) Description 09/25/2024 2:00 PM EDITOR IN CHIEF NEWSPAPER Appointment [facility] [address] [place] [address] Zayra Powell, PRODUCTION WOOD CRAFTSMAN [address] [place] [address] 10/16/2024 3:30 PM EDITOR IN CHIEF NEWSPAPER Office Visit [facility] [address] [place] [address] Brit Gonzáles MD [address] [place], [place] [phone] documented as of this encounter Visit Diagnoses Not on filedocumented in this encounter Additional Health Concerns Infection Onset Date Last Indicated Resolved Time COVID-19 Rule Out 01/04/2023 01/04/2023 01/04/2023 10:12 AM CDT Assessment Noted Time PHQ-9 Depression Total Score: 0 12/02/19 22 1:18 PM CDT documented as of this encounter Care Teams Cable Mechanic Relationship Specialty Start Date End Date Megan Infante MD [address] [place] [address] PCP - General FAMILY PRACTICE 04/06/16 Piyush Pandey MD [facility] Structural Drafter CARDIOVASCULAR DISEASE 04/06/16 12/28/23 Sharmila Davis APRN, WET SUIT GLUER-C [address] [place] [phone] NURSE PRACTITIONER 01/04/17 04/03/24 Linda Block MD [address] [place] [phone] [facility] Structural Drafter CLINICAL CARDIAC ELECTROPHYSIOLOGY 02/08/17 04/12/23 Jeff Grace MD [address] [place] [phone] Consulting Physician INTERNAL MEDICINE 02/20/19 3 Zaki Ortiz MD [address] [place] [address] Consulting Physician PULMONARY DISEASE 07/12/19 Concetta Acevedo MD [address] [place] [address] Surgeon NEUROLOGICAL SURGERY 12/16/22 documented as of this encounter
--- OUTSIDE RECORDS SUMMARY | 2024-09-03 19:11 | XMS_ITS | Encounter Summary ---
Author Organization [facility] Address [address] [place] [address]. [place] [address] [place] [address] Care Team Providers Care Downstairs Maid Name Role Phone Piyush Pandey MD Unavailable Unavailabl e Megan Infante MD Primary Care Provider [phone] Sharmila Davis APRN LIBRARY SCIENCE PROFESSOR-C Unavailable [phone] Linda Block MD Unavailable [phone] Jeff Grace MD Unavailable Zaki Ortiz MD Unavailable [phone] Reason for Visit * Reason Comments Therapy Report (SCAN) Encounter Details Date Type Department Care Team ([facility] Contact Info) Description 03/03/2022 Scan [facility] Information Services [facility] [place] [place] [address] Scanned, Documents Therapy Report (SCAN) Social History [...] st Contact Info) Description 09/25/2024 2:00 PM SINGER AND UNLOADER Appointment [facility] [address] [place] [address] Zayra Powell, SOFT METALS HAND ENGRAVER [address] [place] [address] 10/16/2024 3:30 PM SINGER AND UNLOADER Office Visit [facility] [address] [place] [address] Brit Gonzáles MD [address] [place] [address] documented as of this encounter Visit Diagnoses Not on filedocumented in this encounter Additional Health Concerns Assessment Noted Time PHQ-9 Depression Total Score: 0 12/02/19 22 1:18 PM CDT documented as of this encounter Care Teams Downstairs Maid Relationship Specialty Start Date End Date Megan Infante MD [address] [facility] [place] [address] PCP - General FAMILY PRACTICE 04/06/16 Piyush Pandey MD [facility] Analyst CARDIOVASCULAR DISEASE 04/06/16 12/28/23 Sharmila Davis APRN, LIBRARY SCIENCE PROFESSOR-C [address] [phone] NURSE PRACTITIONER 01/04/17 04/03/24 Linda Block MD [address] [phone] [facility] Analyst CLINICAL CARDIAC ELECTROPHYSIOLOGY 02/08/17 04/12/23 Jeff Grace MD [address] [phone] Consulting Physician INTERNAL MEDICINE 02/20/19 3 Zaki Ortiz MD [address] [phone] Consulting Physician PULMONARY DISEASE 07/12/19 documented as of this encounter
--- OUTSIDE RECORDS SUMMARY | 2024-09-03 19:11 | XMS_ITS | Encounter Summary ---
Author Organization [facility] Address [address] [place] [address]. [place] [address] [place] [address] Care Team Providers Care Truck Driver Teamster Name Role Phone Piyush Pandey MD Unavailable Unavailabl e Megan Infante MD Primary Care Provider [phone] Sharmila Davis APRN TUBE MOLDER FIBERGLASS-C Unavailable [phone] Linda Block MD Unavailable [phone] Jeff Grace MD Unavailable Zaki Ortiz MD Unavailable [phone] Reason for Visit * Reason Onset Date Comments Appointment Reminder 09/03/2022 Encounter Details Date Type Department Care Team (Late st Contact Info) Description 09/03/2022 Telephone [facility] eld [address] [place] [phone] Piyush Pandey MD Appointment Reminder Social History Tobacco Use Types [...] Assessment Author Status Yes 02/01/2022 5:00 AM Sona Deleon RN Active * Do you have difficulty dressing or bathing? Answer Date of Assessment Author Status No 02/01/2022 5:00 AM Sona Deleon RN Active * Because of a physical, [...] Progress Notes * Marcella Freitas RN - 09/03/2022 12:53 PM CST Due to [facility] scheduling restrictions f/u appointment changed from 10/29/22 to 11/09/22 at 11 am Phoned patient, agrees to new date/time CUTTING BLOCK REPAIRER documented in this encounter Plan of Treatment Upcoming Encounters Date Type Department Care Team (Late st Contact Info) Description 09/25/2024 2:00 PM MEAT CUTTING BLOCK REPAIRER Appointment [facility] [address] [place] [address] Zayra Powell, [facility] [address] [place] [address] 10/16/2024 3:30 PM MEAT CUTTING BLOCK REPAIRER Office Visit [facility] [address] [address] Brit Gonzáles MD [address] [place] [address] documented as of this encounter Visit Diagnoses Not on filedocumented in this encounter Additional Health Concerns Assessment Noted Time PHQ-9 Depression Total Score: 0 12/02/19 22 1:18 PM CDT documented as of this encounter Care Teams Truck Driver Teamster Relationship Specialty Start Date End Date Megan Infante MD [address] [place] [address] PCP - General FAMILY PRACTICE 04/06/16 Piyush Pandey MD [place] Ceramic Maker Demonstrator CARDIOVASCULAR DISEASE 04/06/16 12/28/23 Sharmila Davis APRN, TUBE MOLDER FIBERGLASS-C [address] [place] [phone] NURSE PRACTITIONER 01/04/17 04/03/24 Linda Block MD [address] [phone] [place] Ceramic Maker Demonstrator CLINICAL CARDIAC ELECTROPHYSIOLOGY 02/08/17 04/12/23 Jeff Grace MD [address] [phone] Consulting Physician INTERNAL MEDICINE 02/20/19 3 Zaki Ortiz MD [address] [phone] Consulting Physician PULMONARY DISEASE 07/12/19 documented as of this encounter
--- OUTSIDE RECORDS SUMMARY | 2024-09-03 19:11 | XMS_ITS | Encounter Summary ---
Author Organization [facility] Address [address] [place] [address]. [place] [address] [place] [address] Care Team Providers Care Analytics Manager Name Role Phone Piyush Pandey MD Unavailable Unavailabl e Megan Infante MD Primary Care Provider [phone] Sharmila Davis APRN FABRICS AND MATERIAL CUTTER-C Unavailable [phone] Linda Block MD Unavailable [phone] Jeff Grace MD Unavailable Zaki Ortiz MD Unavailable [phone] Encounter Details Date Type Department Care Team (Latest Contact Info) Description 04/15/2022 Travel Social History Tobacco Use Types Packs/Day [...] st Contact Info) Description 09/25/2024 2:00 PM RIG OPERATOR Appointment [facility] [address] [place] [address] Zayra Powell, AIRPLANE CAPTAIN [address] [place] [address] 10/16/2024 3:30 PM RIG OPERATOR Office Visit [facility] [address] [place] [address] Brit Gonzáles MD [address] [place] [address] documented as of this encounter Visit Diagnoses Not on filedocumented in this encounter Additional Health Concerns Assessment Noted Time PHQ-9 Depression Total Score: 0 12/02/19 22 1:18 PM CDT documented as of this encounter Care Teams Analytics Manager Relationship Specialty Start Date End Date Megan Infante MD [address] [facility] [place] [phone] PCP - General FAMILY PRACTICE 04/06/16 Piyush Pandey MD [place] Ballpoint Pen Assembly Machine Operator CARDIOVASCULAR DISEASE 04/06/16 12/28/23 Sharmila Davis, SUPERVISOR SCRAP PREPARATION, FABRICS AND MATERIAL CUTTER-C [address] [facility] [address] [place] [phone] NURSE PRACTITIONER 01/04/17 04/03/24 Linda Block MD [address] [phone] [place] Ballpoint Pen Assembly Machine Operator CLINICAL CARDIAC ELECTROPHYSIOLOGY 02/08/17 04/12/23 Jeff Grace MD [address] [phone] Consulting Physician INTERNAL MEDICINE 02/20/19 3 Zaki Ortiz MD [address] [phone] Consulting Physician PULMONARY DISEASE 07/12/19 documented as of this encounter
--- OUTSIDE RECORDS SUMMARY | 2024-09-03 19:11 | XMS_ITS | Encounter Summary ---
Author Organization [facility] Address [facility] [place] [address] [place] [address] Care Team Providers Care Kiln Car Repairer Name Role Phone Piyush Pandey MD Unavailable Unavailabl e Megan Infante MD Primary Care Provider [phone] Sharmila Davis APRN, OPTICAL EFFECTS LAYOUT PERSON-C Unavailable [phone] Linda Block MD Unavailable [phone] Jeff Grace MD Unavailable Zaki Ortiz MD Unavailable [phone] Reason for Visit * Imaging (Routine) - Closed Specialty Diagnoses / Procedures Referred By Yung sequeira Referred To Contact RADIOLOGY Diagnoses S/P aortic valve replacement with bioprosthetic valve Procedures USE ECHOCARDIOGRAM W CON USE ECHOCARDIOGRAM Sharmila Davis APRN, OPTICAL EFFECTS LAYOUT PERSON-C [address] [place] [address] Phone: tel: fax: Referral ID Status Reason Start Date Expiration Date Visits Re quested Visits Authorized [id number] Closed 12/15/2021 01/15/2023 1 1 Encounter Details Date Type Department Care Team (Latest Contact Info) Description 04/15/2022 9:11 AM CDT - 04/15/2022 11:59 PM CDT Hospital Encounter [facility] [address] [place] [address] Sharmila Davis APRN, OPTICAL EFFECTS LAYOUT PERSON-C [address] [place] [address] Discharge Disposition: Home or Self Care (Routine [...] Lan RN Active documented in this encounter Medications [...] (1 mg total) by mouth daily. 3 gabapentin 100 MG capsule 2 capsules in the morning, 4 capsules in the afternoon, and 8 capsules at bedtime 02/25/2017 3 glipiZIDE XL 5 MG 24 hr tablet Take 5 mg by mouth daily with breakfast. Do not break or crush tablet 3 HYDROcodone-aceta minophen (NORCO) 7.5-325 MG tablet Take 1 tablet by mouth 2 (two) times daily as needed. 03/28/2022 3 losartan 50 MG tablet Take 1 tablet [...] total) by mouth nightly at bedtime. 03/24/2022 warfarin 10 MG tablet Take 5 mg by mouth in the morning. As directed 10/21/2021 3 documented as of this encounter Plan of Treatment Upcoming Encounters Date Type Department Care Team (Late st Contact Info) Description 09/25/2024 2:00 PM OPTICAL LENS MANUFACTURING TECH Appointment [facility] [place] [address] Zayra Powell, PULVI MIXER OPERATOR [address] [place] [address] 10/16/2024 3:30 PM OPTICAL LENS MANUFACTURING TECH Office Visit [facility] [facility] [address] [place] [address] Brit Gonzáles MD [address] [place] [address] documented as of this encounter Procedures Procedure Name Priority Date/Time Associated Diagnosis Comments USE ECHOCARDIOGRAM W CON Routine 04/15/2022 10:16 AM CDT S/P aortic valve replacement with bioprosthetic valve documented in this encounter Results * USE ECHOCARDIOGRAM W CON (04/15/2022 10:16 AM CDT) Anatomical Region Laterality Modality NA Ultrasound Sharmila B Ryan LINE ASSIGNER, OPTICAL EFFECTS LAYOUT PERSON-C ECHO Final Result documented in this encounter Visit Diagnoses Diagnosis S/P aortic valve replacement with bioprosthetic valve Heart valve replaced by other means documented in this encounter Administered Medications Inactive Administered Medications - up to 3 most recent administrations Medication Order MAR Action Action Date Dose Rate Site perflutren lipid microsphere (DEFINITY) injection 2 mL 2 mL, Intravenous, IMG once as needed, Contrast, 1 dose, Starting on Wed04/15/22 at 1016, Until Wed04/15/22 at 1017, Administer over 30-60 seconds. Follow with 10 mL saline flush. Given 04/15/2022 10:17 AM CDT 2 mLs Rig ht Arm documented in this encounter Additional Health Concerns Assessment Noted Time PHQ-9 Depression Total Score: 0 12/02/19 1:18 PM CDT documented as of this encounter Care Teams Kiln Car Repairer Relationship Specialty Start Date End Date Megan Infante MD [address] [facility] [place] [address] PCP - General FAMILY PRACTICE 04/06/16 Piyush Pandey MD [place] Manager Business Planning CARDIOVASCULAR DISEASE 04/06/16 12/28/23 Sharmila Davis APRN, OPTICAL EFFECTS LAYOUT PERSON-C [address] [id number] [place] [address] NURSE PRACTITIONER 01/04/17 04/03/24 Linda Block MD [address] [facility] [address] [place] [address] [place] Manager Business Planning CLINICAL CARDIAC ELECTROPHYSIOLOGY 02/08/17 04/12/23 Jeff Grace MD [address] [facility] [address] [place] [phone] Consulting Physician INTERNAL MEDICINE 02/20/19 3 Zaki Ortiz MD [address] [place] [phone] Consulting Physician PULMONARY DISEASE 07/12/19 documented as of this encounter
--- OUTSIDE RECORDS SUMMARY | 2024-09-03 19:11 | XMS_ITS | Encounter Summary ---
Author Organization [facility] Address [address] [place] [address]. [place] [address] [place] [address] Care Team Providers Care Vault Cashier Name Role Phone Piyush Pandey MD Unavailable Unavailabl e Megan Infante MD Primary Care Provider [phone] Sharmila Davis APRN FOOT DOCTOR-C Unavailable [phone] Linda Block MD Unavailable [phone] Jeff Grace MD Unavailable Zaki Ortiz MD Unavailable [phone] Reason for Visit * Reason Comments Fracture CLOSED FRACTURE OF D ISTAL RIGHT FIBULA (DOI: 12/28/2021 Encounter Details Date Type Department Care Team (Latest Contact Info) Description 02/26/2022 2:30 PM CDT Office Visit [facility] [address] [address] Jacinto Vega MD [address] [place], [place] [address] Fracture (CLOSED FRACTURE OF DISTAL RIGHT FIBULA [...] - Inhaled Oxygen Concentration - - Weight 92.4 kg (203 lb 11.3 oz) 02/26/2022 2:24 PM CDT Height 167.6 cm (5' 6 ) 02/26/2022 2:24 PM CDT Body Mass Index 32.88 02/26/2022 2:24 PM CDT documented in this encounter Functional [...] in this encounter Progress Notes * Jacinto Vega MD - 02/26/2022 2:30 PM CDT Chief Complaint: Fracture (CLOSED FRACTURE OF DISTAL RIGHT FIBULA (DOI: 12/28/2021) History of Present Illness: Mendez Lay is a 66-year-old male who presents to the office for Fracture (CLOSED FRACTURE OF DISTAL RIGHT FIBULA (DOI: 12/28/2021) Patient is in clinic today for follow up of fracture to the RIGHT fibula. He states no pain in the RIGHT ankle at this time. He is not using anything for pain at this time. He states no swelling, numbness, or tingling noted at this time. He states he uses a can and a walker at times, but when at home he can usually get around without any assistive devices. He states he has some minimal pain only when walking up and down stairs. Patient states he has not been participating in therapy at this time. He is clinic today with a cane for assist with ambulation. ROS: See HPI for pertinent positives Problem List: Patient Active Problem List Diagnosis ??? S/P ablation of atrial fibrillation ??? LV dysfunction ??? Essential hypertension ??? Mixed hyperlipidemia ??? Diabetes mellitus, type II (CMS/HCC) ??? Coronary artery disease involving modoc coronary artery of modoc heart without angina pectoris ??? COPD (chronic [...] S/P aortic valve replacement with bioprosthetic valve 2014 1999, 2013 ??? SOB (shortness of breath) ??? Stroke (CMS/HCC) ??? Varicose veins of bilateral lower extremities with other complications ??? Weight gain with edema Past Surgical History: Procedure Laterality Date ??? APPENDECTOMY ??? CARDIAC VALVE REPLACEMENT 1999 ??? CARDIAC VALVE REPLACEMENT 2013 ??? CARDIOVERSION EXTERNAL 10/01/2015 ??? CARDIOVERSION EXTERNAL 04/14/2012 ??? COLONOSCOPY N/A 03/18/2021 COLONOSCOPY (Incomplete) performed by Kilo Navarro MD at [facility] OR ??? COLONOSCOPY N/A 01/27/2022 COLONOSCOPY WITH COLD SNARE POLYPECTOMY performed by Kilo Navarro MD at [facility] OR ??? HIP ARTHROPLASTY Left ??? KNEE [...] Former Smoker Quit date: 1980 Years since quittin.5 ??? Smokeless tobacco: Former User Types: Chew [...] needed for Constipation., Disp: , Rfl: ??? Idozfspqvqa-Goakyaepr-Vdyhlk 100-62.5-25 MCG/INH AEROSOL POWDER, BREATH ACTIVATED, Inhale into the lungs daily., Disp: , Rfl: ??? folic acid 1 MG tablet, Take 1 mg by mouth daily., Disp: , Rfl: ??? furosemide 40 MG tablet, Take 1 tablet (40 mg total) by mouth daily for 30 days., Disp: 30 tablet, Rfl: 0 ??? gabapentin 100 MG capsule, 2 tablets [...] mouth daily., Disp: , Rfl: ??? traZODone 100 MG tablet, Take 1 tablet (100 mg total) by mouth nightly as needed for Sleep., Disp: 30 tablet, Rfl: 0 ??? warfarin 10 MG tablet, Take 5 mg by mouth in the morning. As directed, Disp: , Rfl: No Known Allergies Objective: Body mass index is 32.88 kg/m??. Last Recorded Weight 02/26/22 1424 Weight: 92.4 kg (203 lb 11.3 oz) Physical exam: Constitutional: Alert and in no acute distress. Neurological: The patient was oriented to person, place, and time. Eyes: The sclera and conjunctiva were normal ENT: Hearing was normal. Neck: The appearance of the neck was normal. Cardiovascular: Normal pulses. Pulmonary: No respiratory distress. Skin: No injuries or skin lesion. Musculoskeletal: Right ankle examination demonstrates no swelling and he has minimal tenderness with palpation laterally. His ankle range of motion is moderately restricted. He walks with a cane Results: X-ray demonstrates satisfactory healing of his right distal fibula fracture with good alignment alfonso symmetric mortise Assessment: Encounter Diagnose(s) ICD-10-CM ICD-9-CM SNOMED CT(R) 1. Other closed fracture of distal end of right fibula with routine healing, subsequent encounter S82.831D V54.16 CLOSED FRACTURE OF DISTAL FIBULA 2. Fall, subsequent encounter W19.XXXD V58.89 FALL E888.9 3. Balance disorder R26.89 781.99 IMPAIRMENT OF BALANCE Plan: Patient uses a cane because of balance issues and has had a history of falls most recently a week or so ago. I have recommended physical therapy to help with balance dysfunction as well as improve strength and range of motion of the right ankle. I am satisfied as to healing of the ankle. No furtherfollow-up is necessary Follow up: Return if symptoms worsen or fail to improve. JACINTO VEAG MD documented in this encounter Plan of Treatment Upcoming Encounters Date Type Department Care Team (Late st Contact Info) Description 09/25/2024 2:00 PM CASUALTY CLAIM ADJUSTER Appointment [facility] [address] [place] [address] Zayra Powell, [facility] [address] [place] [address] 10/16/2024 3:30 PM CASUALTY CLAIM ADJUSTER Office Visit [facility] [address] [place] [address] Brit Gonzáles MD [address] [place] [address] documented as of this encounter Visit Diagnoses Diagnosis Other closed fracture of distal end of right fibula with routine healing, subsequent encounter- Primary Fall, subsequent encounter Balance disorder Other symptoms involving nervous and musculoskeletal systems documented in this encounter Additional Health Concerns Assessment Noted Time PHQ-9 Depression Total Score: 0 12/02/19 22 1:18 PM CDT documented as of this encounter Care Teams Vault Cashier Relationship Specialty Start Date End Date Megan Infante MD [address] [place] [address] PCP - General FAMILY PRACTICE 04/06/16 Piyush Pandey MD [place] Pay Agent CARDIOVASCULAR DISEASE 04/06/16 12/28/23 Sharmila Davis, REPRESENTATIVE PERSONAL SERVICE, FOOT DOCTOR-C [id number] [place] [phone] NURSE PRACTITIONER 01/04/17 04/03/24 Linda Block MD [address] [phone] [place] Pay Agent CLINICAL CARDIAC ELECTROPHYSIOLOGY 02/08/17 04/12/23 Jeff Grace MD [address] [address] Consulting Physician INTERNAL MEDICINE 02/20/19 3 Zaki Ortiz MD [address] [phone] Consulting Physician PULMONARY DISEASE 07/12/19 documented as of this encounter
--- OUTSIDE RECORDS SUMMARY | 2024-09-03 19:11 | XMS_ITS | Encounter Summary ---
Author Organization [facility] Address [address] [place] [address]. [place] [address] [place] [address] Care Team Providers Care Customer Service Rep Name Role Phone Piyush Pandey MD Unavailable Unavailabl e Megan Infante MD Primary Care Provider [phone] Sharmila Davis APRN NUCLEAR CONTROL ROOM OPERATOR-C Unavailable Linda Block MD Unavailable [phone] Jeff Grace MD Unavailable Zaik Ortiz MD Unavailable [phone] Reason for Visit * Reason Onset Date Comments Reschedule 05/25/2022 Called To Cancel Office Appt. 05/25/2022 Encounter Details Date Type Department Care Team (Late st Contact Info) Description 05/25/2022 Telephone [facility] [address] [place] [address] Jeff Grace MD [address] [place], [place] [phone] Reschedule; Called To Cancel Office Appt. Social History [...] Assessment Author Status Yes 02/01/2022 5:00 AM SKYLART Sona Lan RN Active * Do you [...] encounter Progress Notes * Terri Varghese - 07/24/2022 3:25 PM CST [facility] VOICE MAIL DATE/TIME:07/24/2022 at 1403 CALLER: pt #: [phone] PROVIDER/NEW PT: Dr. Grace REASON FOR CALL: I need to cancel my appointment. I have a lot of problems right now and will call you back REQUEST HANDLED AND HOW: cancelled appointment and sent message to nurse DER OPERATOR * Dianelys Elias - 05/25/2022 10:29 AM CDT VM DATE/TIME:05/25/2022 at 9:04 AM CALLER: pt PROVIDER/NEW PT: Dr. Grace REASON FOR CALL: Needing to reschedule tomorrows apt with Dr. Grace REQUEST HANDLED AND HOW: Called pt back who stated he is having financial issues and is doing ok right now and would like to put the apt off for a few months. Rescheduled for 07/28/22 at 9:45 AM in [place]. documented in this encounter Plan of Treatment Upcoming Encounters Date Type Department Care Team (Late st Contact Info) Description 09/25/2024 2:00 PM BUILDER OPERATOR Appointment [facility] [address] [place] [address] Zayra Powell, EYELET ROW MARKER [address] [place] [address] 10/16/2024 3:30 PM BUILDER OPERATOR Office Visit [facility] [address] [place] [phone] Brit Gonzáles MD [address] [place] [address] documented as of this encounter Visit Diagnoses Not on filedocumented in this encounter Additional Health Concerns Assessment Noted Time PHQ-9 Depression Total Score: 0 12/02/19 22 1:18 PM CDT documented as of this encounter Care Teams Customer Service Rep Relationship Specialty Start Date End Date Megan Infante MD [address] [place] [phone] PCP - General FAMILY PRACTICE 04/06/16 Piyush Pandey MD [place] Core Drill Operator CARDIOVASCULAR DISEASE 04/06/16 12/28/23 Sharmila Davis, TECHNOLOGY SALES SPECIALIST, NUCLEAR CONTROL ROOM OPERATOR-C [address] [place] [address] [address] [place] [phone] NURSE PRACTITIONER 01/04/17 04/03/24 Linda Block MD [address] [place] [address] [place] Core Drill Operator CLINICAL CARDIAC ELECTROPHYSIOLOGY 02/08/17 04/12/23 Jeff Grace MD [address] [facility] [address] [place] [address] Consulting Physician INTERNAL MEDICINE 02/20/19 3 Zaki Ortiz MD [address] [facility] [address] [place] [address] Consulting Physician PULMONARY DISEASE 07/12/19 documented as of this encounter
--- OUTSIDE RECORDS SUMMARY | 2024-09-03 19:11 | XMS_ITS | Encounter Summary ---
Author Organization [facility] Address [address] [place] [address]. [place] [address] [place] [address] Care Team Providers Care Tug Boat Engineer Name Role Phone Piyush Pandey MD Unavailable Unavailabl e Megan Infante MD Primary Care Provider [phone] Sharmila Davis APRN, NP-C Unavailable Linda Block MD Unavailable [phone] Jeff Grace MD Unavailable Zaki Ortiz MD Unavailable [phone] Reason for Visit * Reason Onset Date Comments Information 04/17/2022 Encounter Details Date Type Department Care Team (Late st Contact Info) Description 04/17/2022 Telephone [facility] [address] [place] [phone] Piyush Pandey MD Information Social History Tobacco Use Types Packs/Day [...] Progress Notes * Marcella Freitas RN - 04/17/2022 12:[address] Pandey: call patient on Wednesday; echo stable, will continue current medications; how is BPat home Phoned patient, given echo results and recommendations. Reports BP at home was 120/78 documented in this encounter Plan of Treatment Upcoming Encounters Date Type Department Care Team (Late st Contact Info) Description 09/25/2024 2:00 PM MANAGEMENT ASSOCIATE Appointment [facility] [address] [place] [address] Zayra Powell, [facility] [address] [place] [address] 10/16/2024 3:30 PM MANAGEMENT ASSOCIATE Office Visit [facility] [address] [place] [phone] Brit Gonzáles MD [address] [place] [address] documented as of this encounter Visit Diagnoses Not on filedocumented in this encounter Additional Health Concerns Assessment Noted Time PHQ-9 Depression Total Score: 0 12/02/19 22 1:18 PM CDT documented as of this encounter Care Teams Tug Boat Engineer Relationship Specialty Start Date End Date Megan Infante MD [address] [place] [address] PCP - General FAMILY PRACTICE 04/06/16 Piyush Pandey MD [place] Behavioral Health Consultant CARDIOVASCULAR DISEASE 04/06/16 12/28/23 Sharmila Davis, DANNY, HOTSHOT SUPERINTENDENT-C [address] [facility] [address] [address] NURSE PRACTITIONER 01/04/17 04/03/24 Linda Block MD [address] [facility] [address] [address] [place] Behavioral Health Consultant CLINICAL CARDIAC ELECTROPHYSIOLOGY 02/08/17 04/12/23 Jeff Grace MD 9 [facility] [address] [address] Consulting Physician INTERNAL MEDICINE 02/20/19 3 Zaki Ortiz MD 6[address] [facility] [address] [address] Consulting Physician PULMONARY DISEASE 07/12/19 documented as of this encounter
--- OUTSIDE RECORDS SUMMARY | 2024-09-03 19:11 | XMS_ITS | Encounter Summary ---
Author Organization [facility] Address [address] [place] [address]. [place] [address] [place] [address] Care Team Providers Care Chummer Name Role Phone Piyush Pandey MD Unavailable Unavailabl e Megan Infante MD Primary Care Provider [phone] Sharmila Davis APRN, NP-C Unavailable Linda Block MD Unavailable [phone] Jeff Grace MD Unavailable Zaki Otriz MD Unavailable [phone] Reason for Visit * Reason Comments Follow Up Encounter Details Date Type Department Care Team (Late st Contact Info) Description 11/09/2022 11:00 AM CDT Office Visit [facility] [place] [phone] Piyush Pandey MD Follow Up Social History [...] Sign Reading Time Taken Comments Blood Pressure 131/70 11/09/2022 11:00 AM CDT Pulse 74 11/09/2022 11:00 AM CDT Temperature - - Respiratory Rate 20 11/09/2022 11:00 AM CDT Oxygen Saturation 99% 11/09/2022 11:00 AM CDT Inhaled Oxygen Concentration - - Weight 102.1 kg (225 lb) 11/09/2022 11:00 AM CDT Height 167.6 cm (5' 6 ) 11/09/2022 11:00 AM CDT Body Mass Index 36.32 11/09/2022 11:00 AM CDT documented in this encounter Functional [...] No 02/01/2022 5:00 AM CDT Sona Lan R N Active documented in this encounter Patient Instructions * Patient Instructions* Marcella Freitas RN - 11/09/2022 11:00 AM CDT RESTART TAKING LASIX (FUROSEMIDE) DAILY TAKE: LASIX 80 MG- 1 1/2 TABLETS DAILY FOR 2 DAYS, THEN TAKE 1 TABLET (80 MG) DAILY documented in this encounter Progress Notes * Piyush Pandey MD - 11/09/2022 11:00 AM CDT Reason for Visit: Follow Up [...] needed for Constipation., Disp: , Rfl: ??? Szjrmxvacvb-Goltorwfw-Ekyruh 100-62.5-25 MCG/INH AEROSOL POWDER, BREATH ACTIVATED, Inhale [...] Navarro MD at [facility] OR ??? COLONOSCOPY N/A 01/27/2022 COLONOSCOPY WITH COLD SNARE POLYPECTOMY performed by Kilo Navarro MD at [facility] OR ??? HIP ARTHROPLASTY Left ??? KNEE [...] and snoring. Cardiovascular: See HPI. Positive for palpitations. Gastrointestinal: Negative for blood in stool and melena. Genitourinary: Negative for dysuria. Musculoskeletal: Positive for myalgias (leg pain). Negative for new or worsening joint stiffness/pain. Skin: Negative for rash. Neurological: Positive for tingling/numbness. Negative for focal weakness. Feels off balance Endo/Heme/Allergies: Negative for new or significant bruising/bleeding and polydipsia. Psychiatric/Behavioral: Negative for depression and new or significant memory loss. Vitals: 11/09/22 1100 Height: 5' 6 (1.676 m) Body mass [...] Physical Exam Constitutional: No distress. Healthy Appearance. Walks slowly. HENT: Oropharynx clear. Eyes: Pupils equal, round, and reactive to light. Conjunctivae normal. Neck: Neck supple. JVD. Abdomen: Abdomen soft. Bowel sounds normal. No tenderness. No mass. No hepatomegaly. No splenomegaly. Abdominal aorta not palpably enlarged. No abdominal bruit present. Pulmonary: Effort normal. Rales. Bibasilar rales. Skin: No rash. No cyanosis. No clubbing. No xanthoma. Musculoskeletal: No kyphosis. Normal ROM. Uses walker; wheelchair today at clinic. Neurological: Alert. Oriented x 3. Appropriate mood [...] INFANTE MD * Piyush Pandey MD - 11/09/2022 12:00 AM CDT HISTORY OF PRESENT ILLNESS: Mr. Lay is seen in the cardiology clinic today for a scheduled followup visit. He reports that his overall status has worsened considerably since I saw him last in March of last year. Mr. Lay's present complaints revolve around shortness of breath which has been present for approximately 1 month. He also describes some rare episodes of chest discomfort and describes orthopnea consistent with an element of congestive heart failure. He also reports that he has paroxysmal nocturnal dyspnea and as a result sleeps in a chair. He has also had ongoing difficulties with a pinched nerve at the C3-4 level. 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 He has been told that this is probably related to his diabetes mellitus. As a result of his overall situation, he reported to me from his wheelchair here in the clinic that he has essentially gone off of his Lasix diuretic therapy. He has had times when he has taken the Lasix 3 times per week as opposed to daily and other times when he has not used it at all. He has noticed that his weight has increased here most recently. He has noticed his abdomen to be more distended and he has been moredepressed about his overall clinical situation. A review of the available records shows that a lipid panel performed in January of last year showed a total serum cholesterol of 151 with an LDL cholesterol fraction of 54 and a total cholesterol to HDLcholesterol ratio of 2.1. Serum triglycerides were 119 and a serum ALT was normal at 47. Other laboratory at that time included a BUN of 44 and creatinine 1.53 as well as a somewhat elevated total bilirubin of 104. RECOMMENDATIONS AND PLAN: Mr. Lay's overall status has worsened considerably since I last saw him in the summer of last year. His presentation and physical examination seem consistent with worsening right heart failure, at least partially related to his discontinuation of his usual Lasix dosing.Further adjustments in his medical regimen will be necessary in an effort to return him to his stable state of last summer. Aggressive cardiac risk factor modification will also be important in his long-term care. After a long discussion in the clinic regarding the need for close monitoring and compliance with all his medications, I have recommended the followin. Restart Lasix dosing on a daily basis. I have asked him to take his Lasix 120 mg p.o. q.a.m. for2 days and then return to his usual dosing of 80 mg p.o. q.a.m. We will obtain some followup laboratory results to document stable serum potassium and renal function and adjustments in his medical regimen will be based on these results. If his right heart failure continues to be a problem, he may require a short hospitalization for intravenous diuretic therapy. 2. I found a urine bottle for him to use at home as this is one of the reasons he stopped taking his Lasix because of the need to go to the bathroom. 3. Return to the cardiology clinic for routine followup in 3 months. I have encouraged Mr. Lay to contact me in the meantime should he have any questions or problems. #[id number] /PUS documented in this encounter Plan of Treatment Upcoming Encounters Date Type Department Care Team (Late st Contact Info) Description 09/25/2024 2:00 PM [employer]P [employer]OOKING Appointment [facility] [address] [place] [address] Zayra Powell LENS MOLDER [address] [place] [address] 10/16/2024 3:30 PM [employer] Office Visit [facility] [address] [place] [phone] Brit Gonzáles MD [address] [place] [address] documented as of this encounter Visit Diagnoses Diagnosis Acute on chronic combined systolic and diastolic congestive heart failure ([facility] HHS/HCC)- Primary Acute on chronic combined systolic and diastolic heart failure S/P aortic valve replacement with bioprosthetic valve Heart valve replaced by other means Chronic atrial fibrillation ([facility] HHS/HCC) Atrial fibrillation S/P ablation of atrial fibrillation Other postprocedural status Essential hypertension Unspecified essential hypertension Mixed hyperlipidemia Obstructive sleep apnea (adult) (pediatric) Chronic obstructive pulmonary disease, unspecified COPD type ([facility] HHS/HCC) Noncompliance Personal history of noncompliance with medical treatment, presenting hazards to health documented in this encounter Additional Health Concerns Assessment Noted Time PHQ-9 Depression Total Score: 0 12/02/19 22 1:18 PM CDT documented as of this encounter Care Teams Chummer Relationship Specialty Start Date End Date Megan Infante MD [address] [place] [phone] PCP - General FAMILY PRACTICE 04/06/16 Piyush Pandey MD [employer] Associate CARDIOVASCULAR DISEASE 04/06/16 12/28/23 Sharmila Davis, DANNY, VIDEO POKER FLOORMAN-C [address] [facility] [address] [place] [address] NURSE PRACTITIONER 01/04/17 04/03/24 Linda Block MD [address] [address] [employer] Associate CLINICAL CARDIAC ELECTROPHYSIOLOGY 02/08/17 04/12/23 Jeff Grace MD [address] [address] Consulting Physician INTERNAL MEDICINE 02/20/19 3 Zaki Ortiz MD [address] [address] Consulting Physician PULMONARY DISEASE 07/12/19 documented as of this encounter
--- OUTSIDE RECORDS SUMMARY | 2024-09-03 19:11 | XMS_ITS | Encounter Summary ---
Author Organization [facility] Address [address] [place] [address]. [place] [address] [place] [address] Care Team Providers Care Motor Vehicle Assembly Supervisor Name Role Phone Piyush Pandey MD Unavailable Unavailabl e Megan Infante MD Primary Care Provider [phone] Sharmila Davis APRN TEST PULLER-C Unavailable [phone] Linda Block MD Unavailable [phone] Jeff Grace MD Unavailable Zaki Ortiz MD Unavailable [phone] Romeo-Concetta Pond MD Unavailable + [phone] Encounter Details Date Type Department Care Team (Late st Contact Info) Description 12/24/2022 Orders Only [facility] [address] [facility] [place] [address] Katina Beltran MD [address] [place] [address] Social History Tobacco Use Types Packs/Day Years [...] slept in a group home (including now)? No 12/28/2022 Sex and Gender [...] Contact Info) Description 09/25/2024 2:00 PM DIRECTOR INTERNAL AUDIT Appointment [facility] [address] [place] [address] Zayra Powell, TOWER EQUIPMENT INSTALLER [address] [place] [address] 10/16/2024 3:30 PM DIRECTOR INTERNAL AUDIT Office Visit [facility] [address] [place] [phone] Brit Gonzáles MD [address] [place] [address] documented as of this encounter Results * (ABNORMAL) EOSINOPHIL COUNT, URINE (12/24/2022 3:10 PM CDT) EOSINOPHIL, URINE <1(A) <1 % 12/25/2022 2:35 PM CDT [facility] Comment:NORMAL URINE SPECIMEN / Unknown 12/24/2022 3:10 PM CDT us Katina Beltran MD URINE ORDERABLES Final Res ult [facility] [address] [place] [address], [place] [phone] * (ABNORMAL) ALBUMIN CREATININE URINE RANDOM (12/24/2022 3:10 PM CDT) ALBUMIN (U) 3.1 MG/DL 12/24/2022 3:[address] [facility] Comment:REFERENCE RANGE NOT ESTABLISHED CREATININE RANDOM (U) 81.6 MG/DL 12/24/2022 3:[address] [facility] Comment:REFERENCE RANGE NOT ESTABLISHED ALBUMIN/CREAT RATIO 38.0(H) <30 MG/G 12/24/2022 3:[address] [facility] Comment: NORMAL TO MILDLY INCREASED ALBUMINURIA: <30 MG/G MODERATELY INCREASED ALBUMINURIA: 30 TO 300 MG/G SEVERELY INCREASED ALBUMINURIA: >300 MG/G PER KDIGO URINE SPECIMEN / Unknown 12/24/2022 3:10 PM CDT us Katina Beltran MD URINE ORDERABLES Final Res ult [facility] [address] [place] [address], [place] [phone] * (ABNORMAL) PTH - INTACT (12/24/2022 3:05 PM CDT) PTH 129.7(H) 18.4 - 80.1 PG/ML 12/25/2022 5:39 PM CDT [facility] Comment: ASSAY PERFORMED BY CHEMILUMINESCENCE METHODOLOGY USING SIEMENS [employer] EngineAUR XPT REAGENT. PATIENT RESULTS DETERMINED BY ASSAYS USING DIFFERENT MANUFACTURERS FOR METHODS MAY NOT BE COMPARABLE. 12/24/2022 3:05 PM CDT Katina Beltran MD LABORATORY Final [facility] Performing Organization Address [facility] Co de Phone Number [facility] [address] [place] [address], [phone] * (ABNORMAL) VITAMIN D, 25 OH (12/24/2022 3:05 PM CDT) Pathologist [facility] VITAMIN D 25 HYDROXY TOTAL S/P/B 10.4(L) 20.0 - 50.0 NG/ML 12/25/2022 12:30 PM CDT [facility] Comment: <10 ng/mL (Severe deficiency) 10 TO 19 ng/mL (Mild to Moderate deficiency) 20 TO 50 ng/mL (Optimum levels) 51 TO 80 ng/mL (Increased risk of hypercalciuria) >80 ng/mL (Toxicity possible) 12/24/2022 3:05 PM CDT Katina Beltran MD [facility] Performing Organization Address [facility] Co de Phone Number [facility] [address] [place] [address], [phone] * IMMUNOFIXATION (12/24/2022 3:05 PM CDT) Pathologist [facility] IMMUNOFIXATION SERUM SEE PATHOLOGIST'S INTERPRETATION 12/28/2022 2:40 PM CDT [facility] IMMUNOFIX (SERUM) INTERPRETATION THIS SERUM IMMUNOTYPING WAS INTERPRETED BY 12/28/2022 3:41 PM CDT [facility] Comment: DR CONNER EDWARDS MD MONOCLONAL PROTEIN NOT IDENTIFIED 12/24/2022 3:05 PM CDT Katina Beltran MD LABORATORY Final Resu lt Performing Organization Address [facility] Co de Phone Number [facility] [address] [place] [address], [place] [phone] * HEPATITIS C ANTIBODY (12/24/2022 3:05 PM CDT) HEPATITIS C AB NON-REACTI VE NON-REACT ALEK 12/25/2022 6:28 PM CDT [facility] Comment: ANTIBODIES TO HCV NOT DETECTED. DOES NOT EXCLUDE THE POSSIBILITY OF EXPOSURE TO HCV. 12/24/2022 3:05 PM CDT Katina Beltran MD LABORATORY Final Resu lt Performing Organization Address [facility] Co de Phone Number [facility] [address] [place] [address], [place] [phone] * HEPATITIS B SURFACE AG, EIA (12/24/2022 3:05 PM CDT) Pathologist [facility] HEPATITIS B SURFACE AG NON-REACTI VE NON-REACTI VE 12/25/2022 6:28 PM CDT [facility] Comment:HBsAg NOT DETECTED. 12/24/2022 3:05 PM CDT Katina Beltran MD LABORATORY Final Resu lt Performing Organization Address [facility] Co de Phone Number [facility] [address] [place] [address], [place] [phone] * ANTI-GBM (12/24/2022 3:05 PM CDT) ANTI-GBM <1.0 <1.0 AI 12/28/2022 8:20 AM CDT [employer] MAURA MARTIN Comment: ?Value ?? Interpretation ? <1.0 AI: No Antibody Detected ?>or=1.0 AI: Antibody Detected Test Performed by [employer], [address] [place] [address] Bill Blackmon M.D., Ph.D., Director of Laboratories , CLIA [id number] 12/24/2022 3:05 PM CDT Katina Beltran MD LABORATORY Final Resu lt Performing Organization Address [facility] Co de Phone Number [id number] , [place] [phone] * COMPLEMENT C4 (12/24/2022 3:05 PM CDT) COMPLEMENT C4 35 15 - 53 mg/dL 12/30/2022 8:27 PM CDT [employer] MAURA MARTIN Comment: Test Performed by [employer], [employer], [address] [place] [address] Bill Blackmon M.D., Ph.D., Director of Laboratories , CLIA [id number] 12/24/2022 3:05 PM CDT Katina Beltran MD LABORATORY Final Resu lt Performing Organization Address [facility]/ZIP Co de Phone Number [employer] , [place] [phone] * COMPLEMENT C3 (12/24/2022 3:05 PM CDT) COMPLEMENT C3 150 82 - 185 mg/dL 12/30/2022 8:27 PM CDT [employer] MAURA MARTIN Comment: Test Performed by Liberty Martinez, [employer] [facility], [address] [place], [place] Bill Blackmon M.D., Ph.D., Director of Laboratories , [place] [id number] 12/24/2022 3:05 PM CDT us Katina Beltran MD LABORATORY Final Resu lt [employer] [facility] [address] [place], [place] , * ANCA VASCULITIS PANEL (12/24/2022 3:05 PM CDT) [facility] ANCA SCREEN Negative Negative 12/30/2022 10:38 PM CDT [employer] EDENMartyAMBROCIO LEMUS Comment: ANCA Screen includes evaluation for [...] <1.0 <1.0 AI 2022 10:38 PM CDT [employer] CASI LEMUS Comment: ?Value ?? Interpretation ? [...] AB <1.0 <1.0 AI 10:38 PM CDT [employer] [facility]MON-[facility] LEMUS Comment: ? Value ?Interpretation ? <1.0 AI: No Antibody Detected ?>or=1.0 AI: Antibody Detected Autoantibodies to proteinase-3 (CT-3) are accepted as characteristic for granulomatosis with polyangiitis (GPA, Sherie's), and are detectable in 95% of the histologically proven cases. The cytoplasmic IFA pattern, (c-ANCA), is based largely on autoantibody to CT-3 which serves as the primary antigen. These autoantibodies are present in active disease. Test Performed by Liberty Martinez, [employer] [facility], [address] [place] [address] Bill Blackmon M.D., Ph.D., Director of Laboratories , [place] [id number] 12/24/2022 3:05 PM CDT us Katina Beltran MD LABORATORY Final Resu lt [place] [id number] [place], [place] , * ANTINUCLEAR ANTIBODY WI RFX (12/24/2022 3:05 PM CDT) LIANNE 0.3 12/28/2022 1:46 PM CDT [facility] Comment: NEGATIVE: <0.7 RATIO LIANNE PROFILE AND TITER NOT PERFORMED THE LIANNE SCREEN TESTS FOR THE FOLLOWING ANTIBODIES BY EIA: SSA1 (RO), SSB1 (LA), ZAPATA, SCL70, JO1, CENTROMERE, UPHOLSTERY DEPARTMENT SUPERVISOR HISTONE MUST BE ORDERED SEPARATELY DNA (DS) ANTIBODY 3.6 IU/ML 023 1:46 PM CDT [facility] Comment: NEGATIVE: <10 IU/mL EQUIVOCAL: 10 to 15 IU/mL POSITIVE: >15 IU/mL THIS QUANTITATIVE ASSAY IS CALIBRATED TO THE [employer]'S WO/80 STANDARD. THE LEVEL OF dsDNA AUTOANTIBODY GERERALLY CORRELATES WITH THE LEVEL OF DISEASE ACTIVITY IN SYSTEMIC LUPUS ERYTHMATOSUS 12/24/2022 3:05 PM CDT Katina Beltran MD LABORATORY Final Resu lt [facility] [address] [place] [address], [phone] * (ABNORMAL) RENAL FUNCTION PANEL (12/24/2022 3:05 PM CDT) SODIUM S/P/B 136 136 - 145 MMOL/L 12/24/2022 3:[address] [facility] POTASSIUM S/P/B 5.0 3.5 - 5.1 MMOL/L 12/24/2022 3:[address] [facility] CHLORIDE S/P/B 100 98 - 107 MMOL/L 12/24/2022 3:[address] [facility] CO2 26.7 21.0 - 32.0 MMOL/L 12/24/2022 3:[address] [facility] GLUCOSE 99 70 - 99 MG/DL 12/24/2022 3:[address] [facility] Comment: FASTING GLUCOSE 100 TO 125 MG/DL IS CONSISTENT WITH IMPAIRED FASTING GLUCOSE. FASTING GLUCOSE >125 MG/DL IS CONSISTENT WITH DIABETES. RANDOM GLUCOSE >200 MG/DL WITH HYPERGLYCEMIC SYMPTOMS IS CONSISTENT WITH DIABETES. PER ADA GUIDELINES BUN 38(H) 6 - 24 MG/DL 12/24/2022 3:[address] [facility] CREATININE S/P/B 2.35(H) 0.70 - 1.30 MG/DL 12/24/2022 3:[address] [facility] CALCIUM S/P/B 9.3 8.4 - 10.5 MG/DL 12/24/2022 3:[address] [facility] ALBUMIN S/P/B 3.1(L) 3.4 - 5.0 G/DL 12/24/2022 3:[address] [facility] PHOSPHORUS 3.9 2.6 - 4.7 MG/DL 12/24/2022 3:[address] [facility] ANION GAP 9.3 5.0 - 15.0 MMOL/L 12/24/2022 3:[address] [facility] OSMOLALITY (CALC) 291 MOSM/KG 023 3:[address] [facility] Comment:REFERENCE RANGE NOT ESTABLISHED GFR ESTIMATE 29(L) >89 ML/MIN/1. 73 M2 12/24/2022 3:[address] [facility] GFR NOTES GFR REFERENCE S: 12/24/2022 3:[address] [facility] Comment: THE ESTIMATED GFR IS [...] <15 ml/min/1.73 m2 12/24/2022 3:05 PM CDT us Katina Beltran MD LABORATORY Final Resu lt [facility] [address] [place] [address], * (ABNORMAL) CBC W/DIFF AUTOMATED (12/24/2022 3:05 PM CDT) WBC 7.17 4.00 - 10.80 x10'3/uL 12/24/2022 3:[address] [facility] RBC 3.74(L) 4.50 - 6.10 x10'6/uL 12/24/2022 3:[address] [facility] HGB 8.6(L) 13.0 - 18.0 G/DL 12/24/2022 3:[address] [facility] HCT 29.1(L) 37.0 - 52.0 % 12/24/2022 3:[address] [facility] MCV 77.8(L) 78.0 - 100.0 FL 12/24/2022 3:[address] [facility] MCH 23.0(L) 27.0 - 31.0 PG 12/24/2022 3:[address] [facility] MCHC 29.6(L) 33.0 - 36.0 G/DL 12/24/2022 3:[address] [facility] RDW 17.6(H) 11.5 - 14.5 % 12/24/2022 3:[address] [facility] PLT 168 150 - 350 x10'3/uL 12/24/2022 3:[address] [facility] MPV 9.6 7.4 - 10.4 FL 12/24/2022 3:[address] [facility] CBC COMMENT NORMAL REFERENCE RANGE NOT ESTABLISHED FOR THE PROPORTIONAL LEUKOCYTE DIFFERENTIAL. 12/24/2022 3:[address] [facility] NEUTROPHILS % 68.8 % 12/24/2022 3:[address] [facility] LYMPHOCYTES % 17.2 % 12/24/2022 3:[address] [facility] MONOCYTES % 9.9 % 12/24/2022 3:[address] [facility] EOSINOPHILS % 3.1 % 12/24/2022 3:[address] [facility] BASOPHILS % 0.7 % 12/24/2022 3:[address] [facility] IMMATURE GRANS % 0.3 % 12/25/19 3:[address] [facility] NRBC 0.0 % 12/24/2022 3:[address] [facility] ABS. NEUTROPHILS 4.94 1.60 - 8.30 x10'3/uL 12/24/2022 3:[address] [facility] ABS. LYMPHOCYTES 1.23 0.80 - 4.70 x10'3/uL 12/24/2022 3:[address] [facility] ABS. MONOCYTES 0.71 0.00 - 1.50 x10'3/uL 12/24/2022 3:[address] [facility] ABS. EOSINOPHILS 0.22 0.00 - 0.40 x10'3/uL 12/24/2022 3:[address] [facility] ABS. BASOPHILS 0.05 0.00 - 0.20 x10'3/uL 12/24/2022 3:[address] [facility] ABS. IMMATURE GRANULOCYTES 0.02 0.00 - 0.03 x10'3/uL 12/24/2022 3:[address] [facility] ABS. NUCLEATED RBC'S 0.00 0.00 x10'3/uL 12/24/2022 3:[address] [facility] 12/24/2022 3:05 PM CDT us Katina Beltran MD LABORATORY Final Resu lt [facility] [address] [place] [address], documented in this encounter Visit Diagnoses Diagnosis Decreased GFR- Primary Nonspecific abnormal results of kidney function study CKD (chronic kidney disease), stage III ([facility]) Chronic kidney disease, Stage III (moderate) documented in this encounter Additional Health Concerns Assessment Noted Time PHQ-9 Depression Total Score: 0 12/02/19 22 1:18 PM CDT documented as of this encounter Care Teams Motor Vehicle Assembly Supervisor Relationship Specialty Start Date End Date Megan Infante MD [address] [place] [id number] PCP - General FAMILY PRACTICE 04/06/16 Piyush Pandey MD [employer] CARDIOVASCULAR DISEASE 04/06/16 12/28/23 Sharmila Davis, CLINICAL MARKETING MANAGER, TEST PULLER-C [address] [phone] NURSE PRACTITIONER 01/04/17 04/03/24 Linda Block MD [address] [address] [employer] CLINICAL CARDIAC ELECTROPHYSIOLOGY 02/08/17 04/12/23 Jeff Grace MD [address] [address] Consulting Physician INTERNAL MEDICINE 02/20/19 3 Zaki Ortiz MD [address] [address] Consulting Physician PULMONARY DISEASE 07/12/19 Concetta Acevedo MD [address] [place] [id number] Surgeon NEUROLOGICAL SURGERY 12/16/22 documented as of this encounter
--- OUTSIDE RECORDS SUMMARY | 2024-09-03 19:11 | XMS_ITS | Encounter Summary ---
Author Organization [facility] Address Critical access hospital[address] [place] [address] [place] [address] Care Team Providers Care Electronic Coils Supervisor Name Role Phone Amauri Pandey MD Unavailable Unavailabl e Megan Infante MD Primary Care Provider [phone] Sharmila Davis APRN OVER[employer] LOAD [employer]IL[employer] ESCORT-C Unavailable [phone] Linda Block MD Unavailable [phone] Jeff Grace MD Unavailable Zaki Ortiz MD Unavailable [phone] Concetta Acevedo MD Unavailable + [phone] Reason for Referral * Imaging (Urgent) - Closed Specialty Diagnoses / Procedures Referred By Contac t Referred To Contact RADIOLOGY Procedures USE ECHOCARDIOGRAM W CON USE ECHOCARDIOGRAM Juanpablo Pandey MD Phone: tel: fax: Referral ID Status Reason Start Date Expiration Date Visits Re quested Visits Authorized [id number] Closed 12/28/2022 12/29/2023 1 1 * Imaging (Urgent) - Closed Specialty Diagnoses / Procedures Referred By Contac t Referred To Contact RADIOLOGY Procedures CT ABD+PEL WO CON Juanpablo Pandey MD Phone: tel: fax: Referral ID Status Reason Start Date Expiration Date Visits Re quested Visits Authorized [id number] Closed 12/28/2022 12/29/2023 1 1 * (Routine) - Canceled Specialty Diagnoses / Procedures Referred By Contac t Referred To Contact Procedures OT eval and treat Juanpablo Pandey MD Phone: tel: fax: Referral ID Status Reason Start Date Expiration Date V isits Requested Visits Authorized [id number] Canceled 12/28/2022 12/29/2023 1 1 * (Routine) - Canceled Specialty Diagnoses / Procedures Referred By Contac t Referred To Contact Procedures PT eval and treat Juanpablo Pandey MD Phone: tel: fax: Referral ID Status Reason Start Date Expiration Date V isits Requested Visits Authorized [id number] Canceled 12/28/2022 12/29/2023 1 1 Reason for Visit * Reason Comments Leg Swelling Edema- 13 Years Or Older * Auth/Cert (Routine) Specialty Diagnoses / Procedures Referred By Contac t Referred To Contact Diagnoses Cellulitis CHF (congestive heart failure) ([facility]) Acute exacerbation of CHF (congestive heart failure) ([facility]) CHF (congestive heart failure) ([facility]) Procedures NONE Juanpablo Pandey MD [address] [place] [address] Phone: tel: fax: Referral ID Status Reason Start Date Expiration Date Visits Re quested Visits Authorized [id number] 1 1 Encounter Details Date Type Department Care Team (Latest Contact Info) Description 12/28/2022 11:59 AM CDT - 01/04/2023 1:56 PM CDT Hospital Encounter [facility] 4th Floor Medical [address] [place] [address] Josue Lagos MD [address] [place] [address] Juanpablo Pandey MD [address] [place] [address] [phone] Amauri Pandey MD Leg Swelling; Edema- 13 Years Or Older Discharge Disposition: Residential Facility Social History Tobacco Use Types Packs/Day Years [...] Sign Reading Time Taken Comments Blood Pressure 116/76 01/04/2023 7:34 AM CDT Pulse 78 01/04/2023 7:34 AM CDT Temperature 36.7 ??C (98.1 ??F) 01/04/2023 7:34 AM CD T Respiratory Rate 18 01/04/2023 7:34 AM CDT Oxygen Saturation 90% 01/04/2023 7:34 AM CDT Inhaled Oxygen Concentration - - Weight 99.7 kg (219 lb 12.8 oz) 01/01/2023 5:00 AM CDT Height 167.6 cm (5' 6 ) 12/28/2022 11:4 8 AM CDT Body Mass Index 35.48 12/28/2022 11:48 AM CDT documented in this encounter Functional [...] or shopping? No 12/28/2022 6:30 PM Prin abhishek Stewart RN Active * Are you deaf [...] Stewart RN Active documented in this encounter Discharge Summaries * Juanpablo Pandey MD - 01/04/2023 11:18 AM CDT Patient ID: Obie Sims [id number] 67-year-old 1955 Admit date: 12/28/2022 Expected Discharge Date: 01/04/2023 Primary care Physician: MEGAN INFANTE MD Admitting Physician: Juanpablo Pandey MD Discharge Physician: JUANPABLO PANDEY MD Admission Diagnoses: Cellulitis [L03.90] CHF (congestive heart failure) (CMS/HCC) [I50.9] Acute exacerbation of CHF (congestive heart failure) (CMS/HCC) [I50.9] Discharge Diagnoses: Acute on chronic systolic/diastolic heart failure Aortic stenosis s/p MVR in 1999 & bioprosthetic valve (2013) Severe pulm hypertension Right lower extremity cellulitis Acute on chronic kidney disease stage III Abdominal distention/? Sigmoid volvulus Chronic neck pain atrial fibrillation Past Medical History Past Medical History: Diagnosis Date Abnormal ankle brachial index (STELLA) Acute on chronic heart failure, unspecified heart failure type ([facility]) Anxiety Aortic valve stenosis Arthritis Asthma, mild persistent 04/06/2021 Atrial fibrillation ([facility]) s/p PVI/[facility]ACA 10/2015 Bilateral leg pain Carotid disease, bilateral (CMS/HCC) CHF (congestive heart failure) (CMS/HCC) Claudication ([facility]) COPD (chronic obstructive pulmonary disease) ([facility]) Coronary artery disease Diabetes mellitus, type II (CMS/HCC) Edema 04/19/2018 2+ pitting History of blood transfusion Hyperlipidemia Hypertension LV dysfunction Osteoarthritis PAD (peripheral artery disease) (CMS/HCC) Pneumonia Restless leg syndrome S/P aortic valve replacement with bioprosthetic valve 2013 1999, 2013 SOB (shortness of breath) Stroke ([facility]) Varicose veins of bilateral lower extremities with other complications Weight gain with edema Past Surgical History: Procedure Laterality Date APPENDECTOMY CARDIAC VALVE REPLACEMENT 1999 CARDIAC VALVE REPLACEMENT 2013 CARDIOVERSION EXTERNAL 10/01/2015 CARDIOVERSION EXTERNAL 04/14/2012 COLONOSCOPY N/A 03/18/2021 COLONOSCOPY (Incomplete) performed by Kilo Navarro MD at [facility] OR COLONOSCOPY N/A 01/27/2022 COLONOSCOPY WITH COLD SNARE POLYPECTOMY performed by Kilo Navarro MD at [facility] OR HIP ARTHROPLASTY Left KNEE ARTHROPLASTY Bilateral REPAIR ROTATOR CUFF W/ OR W/O ACROMIOPLASTY Left USE NEMO+CARDIOVERSION 03/24/2016 XA A-FIB ABLATION 10/23/2015 PVI/[facility] Reason for admission: HPI: 67-year-old male history of CAD, COPD, aortic stenosis s/p Bioprosthetic in 2013, Type 2 DM, A-fib on warfarin, Chronic HFpEF, severe pulm hypertension, hypertension, hyperlipidemia, CKD3(baseline creatinine 1.6- 1.8), CVA (lacunar infarct in nicholas & L. 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 Apparently patient was evaluated by hisprimary care team was treated for cellulitis recently. Patient reports increased detail lower extremity edema, swelling, tightness and radiating over the past few weeks. He has no complaints of chestpain denies any cough productive sputum.patient denies any complaints of abdominal pain noticed abdominal bloating, distention denies any nausea, vomiting, melena, bleeding per rectum. He also noted to have right lower extremity superficial ulcerations. Patient was evaluated in the emergency department noted to have elevated BNP, worsening creatinine from his baseline. Chest x-ray did not show any acute findings. He was started on a broad-spectrum antibiotics given a dose of IV Lasix. Cardiology was consulted from emergency department patient being admitted for further management Hospital Course: 67-year-old male with a past medical history significant for coronary artery disease, COPD, aortic stenosis s/p bioprosthetic valve in 2013 chronic kidney disease, chronic neck pain presented to emergency department with increased shortness of breath, lower extremity edema, redness, swelling involving the lower extremity, superficial ulcerations on the right lower extremity. He was started on IV diuretics for CHF exacerbation cardiology consultation was obtained he was also started on broad-spectrum antibiotics for suspected cellulitis. He also reported abdominal distention at the time of presentation his creatinine was elevated from his baseline. CT of the abdomen performed which was concerning for possible sigmoid volvulus colorectal surgery consulted patient was managed conservatively he had no symptoms of abdominal pain colorectal surgery did not recommend any surgical intervention he is tolerating diet without any problem, having bowel movements. Echocardiogram performed during this hospitalization showed ejection fraction of 37% cardiology recommended him to continue with IV diuretics, he was continue with the spironolactone, he was started on a isosorbide, hydralazine combination. His volume status improved his lower extremity edema improving. He was transitioned to p.o. Lasix at the time of discharge. His creatinine was elevated from his baseline on monitoring his creatinine trending down and this needs to be monitored closely. Pharmacy manage his Coumadin dosing hisINR was subtherapeutic advised him to take 5 mg daily with next INR check in 3 days time. Further do sing of warfarin based on INR levels For cellulitis he received IV broad-spectrum antibiotics and subsequently changed to Augmentin at the time of discharge to complete course. Therapy evaluated the patient, recommended rehab placement Patient has a chronic neck pain he was supposed to have surgery by . In view of his worsening CHF surgery was postponed to later date. He will need a cardiology clearance prior to surgery I have examined the patient on the day of discharge patient is hemodynamically stable Consults: cardiology Procedures/Significant Diagnostic Studies: ECG 12 lead Result Date: 12/29/2022 SJS-ED Test Date: 2022-12-28 Pat Name: OBIE SIMS Department: 70 Room: 484Gender: Male Director Digital Advertising: ISABEL : 1955 Requested By: EVELINE JACINTO Order Number: [id number] MD: Domingo Parks Measurements Intervals Sublette Rate: 90 P: IN: 0 QRS: -35 QRSD: 132 T: 136 QT: 388 QTc: 476 Interpretive Statements ATRIAL FIBRILLATION MARKED LEFT AXIS DEVIATION [QRS AXIS < -30] LEFT BUNDLE BRANCH BLOCK [120+ ms QRS DURATION, 80+ ms Q/S IN V1/V2, 85+ ms R IN I/aVL/V5/V6] CT ABD+PEL WO CON Addendum Date: 12/28/2022 No significant change in size of right adrenal nodule measuring up to 4.2 cm on axial imaging, previously 4.0 cm and 2009 using similar measuring technique. This suggests benign lesion given multiyear stability. Referred By: Interpreted By: Dari Tovar DO, 12/28/2022 9:03 PM Result Date: 12/28/2022 STUDY: CT ABD+PEL WO CON: 12/28/2022 4:49 PM CLINICAL INFORMATION: Nausea/vomiting Bowel obstruction suspected COMPARISON: Same day chest radiographs, 6 CT abdomen/pelvis with/without 04/02/2009, CT chest without 02/19/2014 TECHNIQUE: CT acquisition of the abdomen and pelvis. Coronal and sagittal reformatted images provided. A dose lowering technique was utilized for this procedure which may include but is not limited to dose reduction techniques, automated exposure control, and/or the use of iterative reconstruction in accordance with ALARA principle. IV Contrast: None Oral contrast: None. FINDINGS: LOWER CHEST: Severe coronary artery calcifications. Status post median sternotomy with aortic valve prosthesis. Bibasilar scarring/atelectasis. Mild bilateral gynecomastia. ABDOMEN/PELVIS: Liver:Unremarkable noncontrasted appearance. Gallbladder/biliary: Layering calcifications within the gallbladder lumen. No biliary ductal dilation. Pancreas: Normal. Spleen: Normal. Adrenal glands: Normal.Kidneys and ureters: Mild bilateral relapse the. Partially exophytic left renal cyst measuring up to 5.1 cm on axial imaging. Hyperdense left renal midpole lesion, likely represents a hemorrhagic or proteinaceous cyst partially exophytic right inferior pole lesion with peripheral calcification measuring up to 0.7 cm. No hydronephrosis or hydroureter. Bladder: Normal. Reproductive organs: Small bilateral hydroceles. Prostatomegaly. Stomach/bowel: Dilated loop sigmoid colon measuring up to 7.0 cmin diameter. No wall thickening. Appendix: Not visualized. Lymph nodes: No lymphadenopathy. Peritoneum: No intraperitoneal free air. Small water attenuating ascites Vessels: Diffuse arterial calcifica tions. MUSCULOSKELETAL: Abdominal wall: Small fat and fluid containing umbilical hernia. Bones: No acute osseous abnormality. Status post left thoracoplasty with heterotopic ossification. Severe right hip osteoarthrosis. Moderate to severe degenerative changes of the spine, most significant at L5-S1. Diffuse, flowing thoracic osteophytes consistent with diffuse idiopathic skeletal hyperostosis (DISH). Soft tissues: Anasarca. IMPRESSION: 1. Findings concerning for sigmoid volvulus, recommend surgical evaluation. No evidenceof perforation. 2. Small ascites. 3. Anasarca. 4. Diffuse heterotopic ossification surrounding the total left hip prosthesis. 5. Additional chronic/nonemergent findings as above. Dr. Dari Tovar relayed concern for cecal volvulus via [employer] messaging with Dr. Juanpablo Pandey at 5:48 PM on 12/28/2022 with positive delivery receipt. The provider demonstrated understanding and significance of the findings via returned text acknowledgment. Referred By: Interpreted By: Dari Tovar DO, 12/28/2022 5:28 PM XR CHEST PA+LAT Result Date: 12/28/2022 Patient name: OBIE SIMS Examination: Chest x-ray 2 view Exam time: 12/28/2022 11:56 AM Clinical history: 67 years Male. Shortness of breath Comparison: 02/04/2022 Technique: Frontal and lateral views of the chest were obtained. Findings: No parenchymal consolidation. Blunting of right costophrenic angle. No pneumothorax. Cardiomegaly unchanged. Atherosclerosis. Old rib fractures. Sternotomy wires, mediastinal clips, aortic valve prosthesis again identified. IMPRESSION: 1. No acute findings. Ordered By: EVELINE JACINTO Interpreted By: Kirk Lemus MD, 12/28/2022 12:14 PM USE ECHOCARDIOGRAM W CON Result Date: 12/29/2022 Echocardiography Report Pat.Name: OBIE SIMS Dariana.ID: [id number] St.Date: 12/29/2022 Refer.MD: JUANPABLO PANDEY Exam Time: 9:47:00 AM Study Type:ECHO WITH CARDIAC DOPPLER COMP Height: 66 in Weight: 226 lb BSA: 2.11 m2 Age: 12 1955,67Y Sex: M BP: 112/64 HR: 91 bpm Sonogrphr: Britney Alfonso [facility] Pat. Stat.:Inpatient Room: 484 Procedures: 2D, M-mode, Doppler, Color Flow, Definity was usedto enhance endocardial definition. Race: W ++++++++++++++++++++++++++++++++++++ SUMMARY: +++++++++++ +++++++++++++++++++++++++ Technically difficult exam. Mild concentric left ventricular hypertrophy.The calculated ejection fraction is 37%. The right ventricular size is enlarged. Right ventricular systolic function is moderately depressed. Biatrial enlargement. 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 No evidence of aortic regurgitation. Trace mitral regurgitation. Unable to reliably quantitate pulmonary systolic pressure. ++++++++++++++++++++++++++++++++++++ FINDINGS: ++++++++++++++++++++++++++++++++++++ LV: The calculated ejection fraction is 37%. Estimated left ventricular ejection fraction is 35-40%. Mild concentric left ventricular hypertrophy. The septal E/e' is elevated at >15. The lateral E/e' is elevated at >11. Left ventricular diastolic function is abnormal (grade 3 - restrictive filling). RV: The right ventricular size is enlarged. Right ventricular systolic function is moderately depressed. TAPSE = 11.6mm (<16 mm indicates systolic RV dysfunction). LA: The left atrial volume is mildly increased (34- 41ml/M2). RA: The right atrium was not well visualized in all views, but is probably enlarged. ANYA: No evidence of pericardial effusion. AO: The sinus of Valsalva measures 2.6cm. The proximal ascending aorta measures 3.3cm. PA: Unable to reliably quantitate pulmonary systolic pressure. SVn: Systemic veins not well visualized. Other: Technically difficult exam. AV: No evidence of aortic regurgitation. Moderate thickening of aortic valve leaflets. 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 MV: Trace mitral regurgitation. No evidence of mitral stenosis. PV: Trace pulmonic regurgitation. TV: A trace of tricuspid regurgitation. ++++++++++++++++++++++++++++++++++++ MEASUREMENTS: ++++++++ ++++++++++++++++++++++++++++ DOPPLER LVOT LVOTpkPG 3 mmHg LVOTmnPG 2 mmHg LVOTpkVel 90.2 cm/s (70-110) LVOT SV 47 ml LVOT TVI 15.1 cm AV Forward Flow AV TVI 44.6 cm AV pkPG 28 mmHg AV pkVel 265 cm/s (100-170)* Area (TVI) 1.06 cm2 (3- 5)* AV mnVel 177 cm/s Area (Wilbert) 1.07 cm2 (3-5)* AV mnPG 16 mmHg MV Forward Flow MV DeTm 161 msec MV pkPG 6 mmHg MVA P1/2t 5.37 cm2 (4-6) MV E/A 3.5 MV P1/2t 41 msec(30-60)+ MV pkE 109 cm/s (60-130) MV mnPG 2 mmHg MV pkA 30.8 cm/s PV Regurg Flow PV pkVel 86.9 cm/s PV pkPG 3 mmHg TV Regurg Flow TV pkPG 14 mmHg TV pkVel 186 cm/s (30-70)+* Lat E' Lat e 8.16 cm/s Lat E/E' Lat E/e 13.4 Med E' Med e 3.7 cm/s Med E/E' Med E/e 29.5 Aortic Valve Aortic Valve Ar 0.5 Aortic Valve Ve 0.34 AV DI Value 0.3 EMILE (VTI) Index Value 0.5 LV Mass 2D Value 227 g LV Mass Qomds4SQulpy 108 g/m2 Right Ventricle Right Ventricle 7.62 cm/s 2D Left Ventricle LVIDd 5.17 cm (3.6-5.2) LV EF(Bi-Plane) 36.8 % (63-77)* LVIDs 4.67 cm (2.3-3.9)* LVPW LVPWd 1.01 cm Ventricular Septum IVSd 1.25 cm Aorta Ao Rtd 2.5 cm (zsc -1.3) Ao Asc 3.3 cm (zsc 2.4)* LVOT LVOT 2 cm Ratios IVS LA Biplane LAVol I BP 36.2 ml/m2 MMODE TA Tricuspid Annul 1.16 cm <Electronic Signature> 12/29/2022 06:02 PM Amauri Pandey M.D. ELECTROCARDIOGRAM Result Date: 12/28/2022 [facility] [address] [place] [address] Test Date:2022-12-28 Pat Name: OBIE SIMS Department: 105 Room: Gender: Male Director Digital Advertising: GEETA : 1955 Requested By: AMAURI PANDEY Order Number: [id number] Reading MD: Stalin Measurements Intervals Sublette Rate: 80 P: IN: 0 QRS: -68 QRSD: 138 T: 92 QT: 372 QTc: 432 Interpretive Statements ATRIAL FIBRILLATION LEFT AXIS DEVIATION INTRAVENTRICULAR CONDUCTION DELAY Discharged Condition: good Code Status: Full Code Discharge Exam: Patient was seen and examined on day of discharge, vitals were stable. Disposition: discharged to senior living facility Patient Instructions: Current Discharge Medication List START taking these medications Details amoxicillin-clavulanate (AUGMENTIN) 875-125 MG tablet Take 1 tablet (875 mg total) by mouth every 12 (twelve) hours for 3 days. Qty: 6 tablet, Refills: 0 insulin lispro (HUMALOG) 100 UNIT/ML injection (VIAL) [...] 349, administer 8 units and Call Physician) Qty: 9.6 mL, Refills: 0 isosorbide dinitrate-hydralazine (BIDIL) 20-37.5 MG tablet Take 0.5 tablets by mouth 3 (three) times daily for 30 days. Qty: 45 tablet, Refills: 0 CONTINUE these medications which have CHANGED Details furosemide (LASIX) 80 MG tablet Take 1 tablet (80 mg total) by mouth daily for 30 days. Qty: 30 tablet, Refills: 0 HYDROcodone-acetaminophen (NORCO) 7.5-325 MG tablet Take 1 tablet by mouth 2 (two) times daily as needed. Indications: Chronic Pain Qty: 20 tablet, Refills: 0 Associated Diagnoses: Pain in both lower extremities CONTINUE these medications which have NOT CHANGED [...] (GLUCOTROL XL) 5 MG 24 hr tablet 1-2 tablets daily in am hydrOXYzine (ATARAX) 50 MG tablet Take 1 tablet (50 mg total) by mouth 3 (three) times daily. As needed insulin detemir (LEVEMIR FLEXPEN) 100 UNIT/ML PEN Inject into the skin as needed. JARDIANCE 25 MG tablet Take 1 tablet (25 mg total) by mouth daily. methocarbamol (ROBAXIN) 500 MG tablet Take 1 tablet (500 mg total) by mouth 2 (two) times a day. mupirocin (BACTROBAN) 2 % ointment Apply 1 [...] BREATH ACTIVATED Inhale into the lungs daily. !! warfarin (COUMADIN) 5 MG tablet As directed docusate sodium 100 MG capsule Take 1 capsule (100 mg total) by mouth as needed for Constipation. !! warfarin (COUMADIN) 1 MG tablet As directed !! - Potential duplicate medications found. Please discuss with provider. STOP taking these medications amlodipine 2.5 MG tablet metFORMIN 500 MG tablet Activity: as tolerated. Diet: cardiac diet and diabetic diet Wound Care: as directed Follow up labs needed: Follow-up with half-way patient 3 to 5 days time the CBC, basic metabolic profile Next INR check in 3 days time further dosing of warfarin based on INR levels Return to emergency for worsening abdominal pain, distention Follow-up with the cardiology as arranged Follow-up; Megan Infante MD [address] [place] [address] Follow up with cbc/bmp Amauri Pandey MD [address] [facility] [address] Follow up in 2 week(s) Follow-up, next physician half-way rounds rehab physician in 3-5 days with cbc/bmp/inr Total time spent on discharge was 37 minutes. Thank you for [facility] care [facility] your patient, Please call [phone] Ext [phone] if you have any questions or concern. Signed: JUANPABLO PANDEY MD 01/04/2023 12:18 PM documented in this encounter Discharge Instructions * Discharge Instructions* Juanpablo Pandey MD - 01/04/2023 11:15 AM CDT TAKE 5 MG NEXT THRE DAYS. NEXT INR CHECK IN 3 DAYS-DOSE WARFARIN BASED ON INR documented in this encounter Medications at Time [...] as of this encounter Progress Notes * Ana Maria Porter, CREDIT COLLECTIONS REP - 01/04/2023 1:56 PM CDT PT Treatment Discharge Recommendation: home with assistance P/T home health Activity Recommendation for exploration geologist: up with 1, 2ww, gait belt 01/04/23 0910 Therapy Visit Ordering Provider Juanpablo Pandey MD Subjective Upon entering room 484, patient was sitting up in chair and agreeable to therapy. Reason for admission Pt admission with hx of SOB, LE edema, abdominal swelling, and poor PO intake,concern for CHF exac/ vol overload, imaging showing sigmoid volvulus, no surgical intervention recommended at this time per surgery team, PMHx: C3,4 disc herniation per pt report, pt awaiting surgery, CAD, RLE cellulitis, COPD, s/p AVR, DM2, afib, CHF, severe pulmonary HTN, CKD stage III, CVA, lipoma, HTN, HLD, recent ankle fracture , order: eval/ treat, fall precautions, up with assist Verified Two Patient Identifiers Yes Patient consents to therapy Yes Acute Inpatient PT Time Calculation PT Start Time 0910 PT Stop Time 0934 PT Time Calculation (min) 24 min Precautions General Precautions Bed Alarm;Chair Alarm;Fall Risk Instructed on Precautions Yes;Verbalizes understanding Other tele Home Living Home Living Comments Per eval - Pt lives with his daughter and her family in a one story house witha basement. Pt has 2-3 YANG with handrail. Pt reports he lives in the basement and has a chair lift to the basement. Pt has a walk-in shower with seat and grab bars and standard toilet with riser witharms. Pt needs some help with dressing and bathing. Pt's daughter takes care of all IADLs. Pt was ambulating with wh/walker in the house and cane when he would go out of the home. Pt reports 3 falls due to LE weakness/unsteadiness. Activity Tolerance Endurance Quality Fair Activity Tolerance Comments improving Cognition Overall Cognitive Status WFL Orientation Level Oriented X4 TRANSFERS Sit to Stand Modified independence Other (Comment) Reports he has a lift chair at home Gait Gait Assistance Modified independence Assistive Device 2 Wheeled walker Distance Ambulated (ft) 140 ft (x 2) Other (Comment) Patient ambulates with decreased speed, wide base of support with hips externally rotated and no loss of balance episodes. Rest break following each ambulation Stairs Stair Management Assistance Contact guard assist Stair Management Technique One rail L Number of Stairs 1 Balance Sitting - Static Independent Sitting - Dynamic Independent Standing - Static Modified independence Standing - Dynamic Modified independence Other (Comment) no overt LOB PT Assessment PT Assessment Patient tolerated treatment session well this date with improving gait distance, stair training, and activity tolerance. Patient appears to be progressing towards baseline mobility. Patient can return home with assistance as needed. Recommendation PT Recommendation Home with assistance;Home PT Plan PT Treatments/Interventions Gait Training;Therapeutic Exercises;Therapeutic Activities;Neuromuscular re-education Progress Progressing toward goals PT Frequency 5 times/week PT - Next Appointment 01/04/23 If this is the last treatment note,it will serve as the discharge summary Yes End of Session End of Session Safety Chair alarm set/activated;Call light within reach;Nursing aware of session Education: Primary Learners Name: Obie Sims Primary Language of learner: Moldovan Patient was educated on transfers balance bed mobility therapy plan gait safety stair training. Education was completed one to one verbal hands-on demonstration this date. Preference of learning new concepts one to one verbal hands-on demonstration Barriers to education this date were fatigue. Response to education this date verbalized understanding needs follow up needs assistance. * Sapphire Ryder PharmD - 01/04/2023 11:35 AM CDT Warfarin - Pharmacy Dosing Service Note Obie Sims is a 67-year-old male for which pharmacy has been consulted to dose warfarin for A.fib. Goal INR is 2-3. Warfarin Order Set Activated: Yes Warfarin Start Date: continuation from home Past Medical History: Diagnosis Date Abnormal ankle brachial index (STELLA) Acute on chronic heart failure, unspecified heart failure type ([facility]) Anxiety Aortic valve stenosis Arthritis Asthma, mild persistent 04/06/2021 Atrial fibrillation ([facility]) s/p PVI/[facility] 10/2015 Bilateral leg pain Carotid disease, bilateral ([facility]) CHF (congestive heart failure) ([facility]) Claudication ([facility]) COPD (chronic obstructive pulmonary disease) ([facility]) Coronary artery disease Diabetes mellitus, type II ([facility]) Edema 04/19/2018 2+ pitting History of blood transfusion Hyperlipidemia Hypertension LV dysfunction Osteoarthritis PAD (peripheral artery disease) ([facility]) Pneumonia Restless leg syndrome S/P aortic valve replacement with bioprosthetic valve 2013 SOB (shortness of breath) Stroke ([facility]) Varicose veins of bilateral lower extremities with other complications Weight gain with edema Home warfarin dose: 3 mg daily previously confirmed with patient Past admission was on 5.5 mg Daily Bridging agent: none Vitamin K use: No Diet: PO Recent Labs Lab 12/28/22 1217 12/29/22 0403 01/02/23 0655 01/03/23 0451 01/04/23 0515 HGB 9.1* < > 8.1* 8.5* 8.5* HCT 31.7* < > 28.3* 29.8* 28.9* PLT 201 < > 169 158 175 AST 31 -- -- -- -- ALT 24 -- -- -- -- ALKP 133* -- -- -- -- ALB 3.3* -- -- -- -- < > = values in this interval not displayed. Date INR Dose Received 12/28 2.7 2 mg 12/29 2.9 2 mg x 1 12/30 2.9 1.5 mg 12/31 2.4 2 mg 01/01 2.1 3 mg x 1 01/02 1.8 4 mg 01/03 1.6 5 mg 01/04 1.6 6 mg Drug interactions: Potential to increase INR: Augmentin (12/31-), cefepime (12/28-12/31), ropinirole ([facility] REP) Potential to decrease INR: Spironolactone, Trazodone (12/31 PRN Potential to increase the risk of bleeding: aspirin (on a PPI), sertraline ([employer]LE[employer] REP) Warfarin Sensitivity: high, based on the following risk factors: HF exacerbation, concomitant antiplatelet therapy, age 66-79, 1 moderate drug interaction, and diagnosis of heart failure. Hgb/Hct today are stable INR today is subtherapeutic The plan is to give a 6 mg dose once tonight and recheck an INR in the morning to assist with subsequent dosing. Pharmacy will continue to monitor labs and notes daily, adjusting the dose as clinically appropriate. Thank you for the consult. Pharmacy to dose per Dr. Virgil RYDER, PharmD Phone number: [phone] 01/04/2023 11:35 AM * Matilde Gentile RN - 01/04/2023 10:09 AM CDT Discharged planned today [facility] will pick patient up at 1400 Patient will need covid test. It is ordered Nurse to nurse call report to [phone] Fax orders, avs, and dc summary to [phone] 01/04/23 5190 Interdisciplinary Group Conference Team Members Present Physician;Case/Care management Physician present for group conference Dr Pandey * Abhijeet Mei RN - 01/04/2023 12:14 AM CDT Problem: Pain Goal: Patient's pain/discomfort is [...] and non-skid footwear provided. Outcome: Progressing Problem: Venous Thromboembolism - Risk of Goal: Absence of venous thromboembolism Outcome: Progressing Problem: Mobility - Impaired Goal: Able to use ambulatory assistive device appropriately Outcome: Progressing Goal: Knowledge of need for increased mobility Outcome: Progressing Problem: Gas Exchange - Impaired Goal: Absence of cyanosis signs and symptoms Outcome: Progressing Goal: Pulse oximetry within specified parameters Outcome: Progressing Problem: Skin integrity, Impaired-wound Goal: Absence of new skin breakdown Outcome: Progressing Goal: Evidence of wound healing Outcome: Progressing Problem: Skin integrity, at risk Goal: Absence of new skin breakdown Outcome: Progressing Problem: Activity Intolerance Goal: Improved activity tolerance Outcome: Progressing Problem: Fluid Volume - Excess Goal: Absence of fluid overload signs and symptoms Outcome: Progressing Goal: Electrolytes within specified parameters Outcome: Progressing Problem: Reduced risk for falls/injury Goal: Reduced Risk for Falls/Injury Outcome: Progressing Problem: Reduced risk for falls/injury Goal: Reduced Risk of Confusion (Acute vs Chronic) Outcome: Progressing Problem: Activity Intolerance Goal: Improved activity tolerance Outcome: Progressing Goal: Able to participate in acute rehabilitation Outcome: Progressing Goal: Able to perform prescribed physical activity Outcome: Progressing * Juanpablo Pandey MD - 01/03/2023 12:11 PM CDT Progress note Chief complaint: CHF, cellulitis Subjective Patient seen and examined. Patient feels well denies any complaints of chest pain, shortness of breath today. Reports neck pain Review of Systems All other systems reviewed and are negative. OBJECTIVE Patient Vitals for the past 24 hrs: BP Temp Temp src Pulse Resp SpO2 01/03/23 0757 105/68 97.9 ??F (36.6 ??C) Oral 79 -- 96 % 01/03/23 0527 108/80 97.5 ??F (36.4 ??C) -- 69 -- 97 % 01/02/23 2043 109/67 98.1 ??F (36.7 ??C) Oral 76 20 96 % 01/02/23 1601 113/70 97.7 ??F (36.5 ??C) Oral 75 16 97 % Physical Exam Constitutional: Appearance: He is well-developed. HENT: Head: Normocephalic and atraumatic. Eyes: Pupils: Pupils are equal, round, and reactive to light. Cardiovascular: Rate and Rhythm: Normal rate and regular rhythm. Heart sounds: No murmur heard. No friction rub. Pulmonary: Effort: No respiratory distress. Breath sounds: No wheezing or rales. Chest: Chest wall: No tenderness. Abdominal: General: Bowel sounds are normal. There is distension. Palpations: Abdomen is soft. Tenderness: There is no abdominal tenderness. There is no guarding or rebound. Musculoskeletal: General: Swelling present. Normal range of motion. Cervical back: Normal range of motion and neck supple. Skin: General: Skin is warm and dry. Findings: No rash. Comments: Lower extremity edema. Bilateral stasis dermatitis changes, right lower extremity ulceration/dressed pleasant Neurological: Mental Status: He is alert and oriented to person, place, and time. LABS:. Recent Labs 01/01/23 0944 01/02/23 0655 01/03/23 0451 WBC 8.66 8.67 8.91 HGB 8.3* 8.1* 8.5* HCT 29.2* 28.3* 29.8* MCV 80.9 80.2 81.6 PLT 182 169 158 RBC 3.61* 3.53* 3.65* Recent Labs Lab 12/28/22 1217 12/29/22 0403 01/01/2344 01/02/23 0655 01/03/23 0451 NA 135* < > 131* 131* 130* K 4.9 < > 4.5 4.4 4.7 CL 101 < > 97* 97* 96* CO2 28.1 < > 30.1 30.9 31.8 AGAP 5.9 < > 3.9* 3.1* 2.2* BUN 35* < > 41* 49* 47* CR 2.26* < > 2.25* 2.45* 2.20* GLU 115* < > 191* 125* 112* CA 9.6 < > 9.2 9.4 9.6 TP 8.3* -- -- -- -- ALB 3.3* -- -- -- -- TBIL 1.0 -- -- -- -- ALKP 133* -- -- -- -- AST 31 -- -- -- -- ALT 24 -- -- -- -- < > = values in this interval not displayed. Intake/Output Summary (Last 24 hours) at 01/03/2023 1211 Last data filed at 01/02/20232039 Gross per 24 hour Intake 480 ml Output 1200 ml Net -720 ml RADIOLOGY : REVIEWED MEDICATIONS Scheduled medications amoxicillin-clavulanate 875 mg Oral 2 times per day aspirin EC 81 mg Oral Daily atorvastatin 80 mg Oral Nightly at bedtime carvedilol 3.125 mg Oral BID fluticasone propionate 1 puff Inhalation 2 times daily furosemide 60 mg Intravenous Daily gabapentin 300 mg Oral Daily gabapentin 600 mg Oral Nightly at bedtime insulin lispro 0-8 Units Subcutaneous 4x Daily AC and at bedtime ipratropium-albuterol 1 puff Inhalation 4x daily - RT isosorbide dinitrate-hydralazine 0.5 tablet Oral BID nystatin Topical BID pantoprazole EC 40 mg Oral Daily rOPINIRole 4 mg Oral Nightly at bedtime sertraline 50 mg Oral Daily spironolactone 25 mg Oral Daily warfarin (COUMADIN) pharmacy to dose Oral See Admin Instructions warfarin 5 mg Oral Once Infusion PRN acetaminophen, albuterol sulfate HFA, dextrose 10 % bolus, glucagon, glucose, HYDROcodone-acetaminophen, melatonin, morphine, ondansetron, polyethylene glycol, traZODone ASSESSMENT /PLAN CHF (congestive heart failure) ([facility]) Acute on chronic systolic/diastolic heart failure Aortic stenosis s/p MVR in 1999 & bioprosthetic valve (2013) Severe pulm hypertension Coronary artery disease Admitted with increased shortness of breath noted to have elevated BNP Continue IV Lasix-continue daily Lasix IV Cardiology consulted. Appreciate cardiology input Continue home medications Monitor input output, daily weights, renal functions closely Echocardiogram ordered-follow results Monitor on telemetry Right lower extremity cellulitis Chronic superficial ulceration of right lower extremity Improving continue p.o. Augmentin-complete 7 to 10 days course Cultures no growth so far Wound care consultation. Appreciate wound care input History of atrial fibrillation Continue rate limiting medications Patient on warfarin continue Acute on chronic kidney disease stage III Baseline creatinine around 1.6-1.8 Monitor renal functions Diabetes mellitus Hold oral agents Start on sliding scale insulin Monitor blood glucose ACHS Abdominal distention/? Sigmoid volvulus CT abdomen pelvis concerning for sigmoid volvulus Colorectal surgery consulted, appreciate recommendations No symptoms of abdominal pain. Continue diet Surgery signed off Chronic neck pain Plan to undergo cervical surgery as an outpatient basis Continue home medications, pain control Discussed with Dr. Pond. Plan for surgical intervention at later date once medically optimized as an outpatient basis Continue current pain regimen. DVT prophylaxis; patient already on anticoagulation therapy Code status: Full Code Case management for discharge planning anticipate discharge in couple of days time. Therapy recommending swing bed placement discharge once placement secured JUANPABLO PANDEY MD * Scotty Chan, PharmD, [facility] - 01/03/2023 11:42 AM CDT Warfarin - Pharmacy Dosing Service Note Obie Sims is a 67-year-old male for which pharmacy has been consulted to dose warfarin for A.fib. Goal INR is 2-3. Warfarin Order Set Activated: Yes Warfarin Start Date: continuation from home Past Medical History: Diagnosis Date Abnormal ankle brachial index (STELLA) Acute on chronic heart failure, unspecified heart failure type ([facility]) Anxiety Aortic valve stenosis Arthritis Asthma, mild persistent 04/06/2021 Atrial fibrillation ([facility]) s/p PVI/[facility] 10/2015 Bilateral leg pain Carotid disease, bilateral ([facility]) CHF (congestive heart failure) ([facility]) Claudication ([facility]) COPD (chronic obstructive pulmonary disease) ([facility]) Coronary artery disease Diabetes mellitus, type II ([facility]) Edema 04/19/2018 2+ pitting History of blood transfusion Hyperlipidemia Hypertension LV dysfunction Osteoarthritis PAD (peripheral artery disease) ([facility]) Pneumonia Restless leg syndrome S/P aortic valve replacement with bioprosthetic valve 2013 SOB (shortness of breath) Stroke ([facility]) Varicose veins of bilateral lower extremities with other complications Weight gain with edema Home warfarin dose: 3 mg daily previously confirmed with patient Past admission was on 5.5 mg Daily Bridging agent: none Vitamin K use: No Diet: PO Recent Labs Lab 12/28/22 1217 12/29/22 0403 01/01/23 0944 01/02/23 0655 01/03/23 0451 HGB 9.1* < > 8.3* 8.1* 8.5* HCT 31.7* < > 29.2* 28.3* 29.8* PLT 201 < > 182 169 158 AST 31 -- -- -- -- ALT 24 -- -- -- -- ALKP 133* -- -- -- -- ALB 3.3* -- -- -- -- < > = values in this interval not displayed. Date INR Dose Received 12/28 2.7 2 mg 12/29 2.9 2 mg x 1 12/30 2.9 1.5 mg 12/31 2.4 2 mg 01/01 2.1 3 mg x 1 01/02 1.8 4 mg 01/03 1.6 5 mg Drug interactions: Potential to increase INR: Augmentin (12/31-), cefepime (12/28-12/31), ropinirole ([employer]EDIT [employer]LECTIONS REP) Potential to decrease INR: Spironolactone, Trazodone (12/31 PRN Potential to increase the risk of bleeding: aspirin (on a PPI), sertraline ([employer]LECTIONS REP) Warfarin Sensitivity: high, based on the following risk factors: HF exacerbation, concomitant antiplatelet therapy, age 66-79, 1 moderate drug interaction, and diagnosis of heart failure. Hgb/Hct today are stable INR today is Therapeutic trending down The plan is to give a 5 mg dose once tonight and recheck an INR in the morning to assist with subsequent dosing. Pharmacy will continue to monitor labs and notes daily, adjusting the dose as clinically appropriate. Thank you for the consult. Pharmacy to dose per Dr. Virgil CHAN PharmD, [facility] Phone number: [phone] 01/03/2023 11:42 AM * Abhijeet Mei RN - 01/03/2023 12:11 AM CDT Problem: Pain Goal: Patient's pain/discomfort is [...] and non-skid footwear provided. Outcome: Progressing Problem: Venous Thromboembolism - Risk of Goal: Absence of venous thromboembolism Outcome: Progressing Problem: Mobility - Impaired Goal: Able to use ambulatory assistive device appropriately Outcome: Progressing Goal: Knowledge of need for increased mobility Outcome: Progressing * Micaela Summers Torito, [facility] - 01/02/2023 1:11 PM CDT PT Treatment Discharge Recommendation: Swing bed unit Activity Recommendation for exploration geologist: up with assist of 1 and use of the 2ww - Ambulate in hallway 3x/day to prevent deconditioning while hospitalized. (Commode ordered at end of session to be placed over the toilet to elevate the surface so he doesn't have as much difficulty getting up off the toilet.) 01/02/23 1246 Therapy Visit Ordering Provider Juanpablo Pandey MD Subjective RN Ok'd therapy session. Patient was sitting up in the recliner upon arrival and is agreeable to session. Reason for admission Pt admission with hx of SOB, LE edema, abdominal swelling, and poor PO intake,concern for CHF exac/ vol overload, imaging showing sigmoid volvulus, no surgical intervention recommended at this time per surgery team, PMHx: C3,4 disc herniation per pt report, pt awaiting surgery, CAD, RLE cellulitis, COPD, s/p AVR, DM2, afib, CHF, severe pulmonary HTN, CKD stage III, CVA, lipoma, HTN, HLD, recent ankle fracture , order: eval/ treat, fall precautions, up with assist Verified Two Patient Identifiers Yes Patient consents to therapy Yes Acute Inpatient PT Time Calculation PT Start Time 1246 PT Stop Time 1311 PT Time Calculation (min) 25 min Precautions General Precautions Bed Alarm;Chair Alarm;Fall Risk Instructed on Precautions Yes;Verbalizes understanding Other tele Home Living Home Living Comments Per eval - Pt lives with his daughter and her family in a one story house witha basement. Pt has 2-3 YANG with handrail. Pt reports he lives in the basement and has a chair lift to the basement. Pt has a walk-in shower with seat and grab bars and standard toilet with riser witharms. Pt needs some help with dressing and bathing. Pt's daughter takes care of all IADLs. Pt was ambulating with wh/walker in the house and cane when he would go out of the home. Pt reports 3 falls due to LE weakness/unsteadiness. Pain Pain Yes Pain Score Did not rate Location neck pain and stiffness Interventions Re-direction;Re-positioning Activity Tolerance Endurance Quality Fair Limiting Factors to Endurance Acute deconditioning;Fatigue;Pain;Weakness Cognition Overall Cognitive Status WFL Arousal/Alertness Appropriate responses to stimuli Attention Span Appears intact Memory Appears intact Orientation Level Oriented X4 Following Commands Follows all commands and directions without difficulty Safety Judgment Decreased awareness of need for safety Awareness of Errors Assistance required to identify errors made Deficits Fully aware of deficits Problem Solving Assistance required to identify errors made Bed Mobility Supine to Sit Modified independence Sit to Supine Modified independence Other (Comment) head of bed elevated - states he sleeps in a recliner at home TRANSFERS Sit to Stand SBA/supervision Bed to Chair SBA/supervision Other (Comment) Each time he got ready to stand he states that he needs help getting up. But each time, he was able to push up from the arms rest of the chair and was SBA Gait Gait Assistance SBA/supervision;With gait belt Assistive Device 2 Wheeled walker Distance Ambulated (ft) 125 ft (x2) Other (Comment) Patient ambulates with decreased speed, pushes the 2ww too far in front of him and flexes forward. He has a wide base of support with hips externally rotated and is slightly unsteady but had no loss of balance episodes. Stairs Other (Comment) states he has 3 steps to enter and then a chair lift to the basement Balance Sitting - Static Independent Sitting - Dynamic Independent Standing - Static SBA;Support of both upper extremities Standing - Dynamic SBA;Support of both upper extremities Other (Comment) no loss of balance but he is slightly unsteady and fatigues quickly so could be at risk for falls PT Assessment PT Assessment He is now modified independent with bed mobility and SBA for transfers and gait training. He is unsteady with ambulation but had no loss of balance episodes. He fatigues quickly and could be at risk for falls. PT will continue to progress his functional mobility but he will benefit from continued rehab in a swing bed prior to returning home Recommendation PT Recommendation Swing bed unit Plan PT Treatments/Interventions Gait Training;Therapeutic Exercises;Therapeutic Activities;Neuromuscular re-education Progress Progressing toward goals PT Frequency 5 times/week PT - Next Appointment 01/02/23 If this is the last treatment note,it will serve as the discharge summary Yes End of Session End of Session Safety Call light within reach;Nursing aware of session;Transfer status education End of Session Comment sitting up in the recliner with all needs within reach Education: Primary Learners Name: Obie Sims Primary Language of learner: Moldovan Patient was educated on transfers balance bed mobility therapy plan gait safety. Education was completed one to one verbal hands-on this date. Preference of learning new concepts one to one verbal hands-on Barriers to education this date were physical impairment. Response to education this date verbalized understanding needs reinforcement needs follow up needs assistance. * Sctoty Chan, AaliyahD, [facility] - 01/02/2023 12:09 PM CDT Warfarin - Pharmacy Dosing Service Note Obie Sims is a 67-year-old male for which pharmacy has been consulted to dose warfarin for A.fib. Goal INR is 2-3. Warfarin Order Set Activated: Yes Warfarin Start Date: continuation from home Past Medical History: Diagnosis Date Abnormal ankle brachial index (STELLA) Acute on chronic heart failure, unspecified heart failure type ([facility]) Anxiety Aortic valve stenosis Arthritis Asthma, mild persistent 04/06/2021 Atrial fibrillation ([facility]) s/p PVI/[facility] 10/2015 Bilateral leg pain Carotid disease, bilateral ([facility]) CHF (congestive heart failure) ([facility]) Claudication ([facility]) COPD (chronic obstructive pulmonary disease) ([facility]) Coronary artery disease Diabetes mellitus, type II ([facility]) Edema 04/19/2018 2+ pitting History of blood transfusion Hyperlipidemia Hypertension LV dysfunction Osteoarthritis PAD (peripheral artery disease) ([facility]) Pneumonia Restless leg syndrome S/P aortic valve replacement with bioprosthetic valve 2013 SOB (shortness of breath) Stroke ([facility]) Varicose veins of bilateral lower extremities with other complications Weight gain with edema Home warfarin dose: 3 mg daily previously confirmed with patient Past admission was on 5.5 mg Daily Bridging agent: none Vitamin K use: No Diet: PO Recent Labs Lab 12/28/22 1217 12/29/22 0403 12/31/22 0528 01/01/23 0944 01/02/23 0655 HGB 9.1* < > 8.3* 8.3* 8.1* HCT 31.7* < > 29.3* 29.2* 28.3* PLT 201 < > 183 182 169 AST 31 -- -- -- -- ALT 24 -- -- -- -- ALKP 133* -- -- -- -- ALB 3.3* -- -- -- -- < > = values in this interval not displayed. Date INR Dose Received 12/28 2.7 2 mg 12/29 2.9 2 mg x 1 12/30 2.9 1.5 mg 12/31 2.4 2 mg 01/01 2.1 3 mg x 1 01/02 1.8 4 mg Drug interactions: Potential to increase INR: Augmentin (12/31-), cefepime (12/28-12/31), ropinirole ([facility] REP) Potential to decrease INR: Spironolactone, Trazodone (12/31 PRN Potential to increase the risk of bleeding: aspirin (on a PPI), sertraline ([employer] REP) Warfarin Sensitivity: high, based on the following risk factors: HF exacerbation, concomitant antiplatelet therapy, age 66-79, 1 moderate drug interaction, and diagnosis of heart failure. Hgb/Hct today are stable INR today is Therapeutic trending down The plan is to give a 4 mg dose once tonight and recheck an INR in the morning to assist with subsequent dosing. Pharmacy will continue to monitor labs and notes daily, adjusting the dose as clinically appropriate. Thank you for the consult. Pharmacy to dose per Dr. Virgil CHAN, Reina, [facility] Phone number: [phone] 01/02/2023 12:09 PM * Juanpablo Pandey MD - 01/02/2023 11:21 AM CDT Progress note Chief complaint: CHF, cellulitis Subjective Patient seen and examined. Patient sitting in chair. Patient feels well. Continues to report neck pain Review of Systems All other systems reviewed and are negative. OBJECTIVE Patient Vitals for the past 24 hrs: BP Temp Temp src Pulse Resp SpO2 01/02/23 1115 110/74 -- -- 86 -- 96 % 01/02/23 0815 92/70 97.7 ??F (36.5 ??C) Oral 89 16 93 % 01/02/23 0416 118/68 -- -- (!) 49 -- 91 % 01/01/23 1950 110/57 97.5 ??F (36.4 ??C) Oral 90 -- 97 % 01/01/23 1716 93/57 97.9 ??F (36.6 ??C) -- 76 -- (!) 88 % Physical Exam Constitutional: Appearance: He is well-developed. HENT: Head: Normocephalic and atraumatic. Eyes: Pupils: Pupils are equal, round, and reactive to light. Cardiovascular: Rate and Rhythm: Normal rate and regular rhythm. Heart sounds: No murmur heard. No friction rub. Pulmonary: Effort: No respiratory distress. Breath sounds: No wheezing or rales. Chest: Chest wall: No tenderness. Abdominal: General: Bowel sounds are normal. There is distension. Palpations: Abdomen is soft. Tenderness: There is no abdominal tenderness. There is no guarding or rebound. Musculoskeletal: General: Swelling present. Normal range of motion. Cervical back: Normal range of motion and neck supple. Skin: General: Skin is warm and dry. Findings: No rash. Comments: Lower extremity edema. Bilateral stasis dermatitis changes, right lower extremity ulceration/dressed pleasant Neurological: Mental Status: He is alert and oriented to person, place, and time. LABS:. Recent Labs 12/31/2252701/01/23 0944 01/02/23 0655 WBC 7.90 8.66 8.67 HGB 8.3* 8.3* 8.1* HCT 29.3* 29.2* 28.3* MCV 80.7 80.9 80.2 PLT 183 182 169 RBC 3.63* 3.61* 3.53* Recent Labs Lab 12/28/22 1217 12/29/22 0403 12/31/22 0528 01/01/23 0944 01/02/23 0655 NA 135* < > 132* 131* 131* K 4.9 < > 4.1 4.5 4.4 CL 101 < > 99 97* 97* CO2 28.1 < > 29.5 30.1 30.9 AGAP 5.9 < > 3.5* 3.9* 3.1* BUN 35* < > 37* 41* 49* CR 2.26* < > 2.15* 2.25* 2.45* GLU 115* < > 120* 191* 125* CA 9.6 < > 8.9 9.2 9.4 TP 8.3* -- -- -- -- ALB 3.3* -- -- -- -- TBIL 1.0 -- -- -- -- ALKP 133* -- -- -- -- AST 31 -- -- -- -- ALT 24 -- -- -- -- < > = values in this interval not displayed. Intake/Output Summary (Last 24 hours) at 01/02/2023 1121 Last data filed at 01/02/2023 0815 Gross per 24 hour Intake 1060 ml Output 1650 ml Net -590 ml RADIOLOGY : REVIEWED MEDICATIONS Scheduled medications amoxicillin-clavulanate 875 mg Oral 2 times per day aspirin EC 81 mg Oral Daily atorvastatin 80 mg Oral Nightly at bedtime carvedilol 3.125 mg Oral BID fluticasone propionate 1 puff Inhalation 2 times daily [START ON 01/03/2023] furosemide 60 mg Intravenous Daily gabapentin 300 mg Oral Daily gabapentin 600 mg Oral Nightly at bedtime insulin lispro 0-8 Units Subcutaneous 4x Daily AC and at bedtime ipratropium-albuterol 1 puff Inhalation 4x daily - RT isosorbide dinitrate-hydralazine 0.5 tablet Oral BID nystatin Topical BID pantoprazole EC 40 mg Oral Daily rOPINIRole 4 mg Oral Nightly at bedtime sertraline 50 mg Oral Daily spironolactone 25 mg Oral Daily warfarin (COUMADIN) pharmacy to dose Oral See Admin Instructions Infusion PRN acetaminophen, albuterol sulfate HFA, dextrose 10 % bolus, glucagon, glucose, HYDROcodone-acetaminophen, melatonin, morphine, ondansetron, polyethylene glycol, traZODone ASSESSMENT /PLAN CHF (congestive heart failure) ([facility]) Acute on chronic systolic/diastolic heart failure Aortic stenosis s/p MVR in 1999 & bioprosthetic valve (2014) Severe pulm hypertension Coronary artery disease Admitted with increased shortness of breath noted to have elevated BNP Continue IV Lasix-change daily Cardiology consulted. Appreciate cardiology input Continue home medications Monitor input output, daily weights, renal functions closely Echocardiogram ordered-follow results Monitor on telemetry Right lower extremity cellulitis Chronic superficial ulceration of right lower extremity Improving will transition to p.o. Augmentin-complete 7 to 10 days course Cultures no growth so far Wound care consultation. Appreciate wound care input History of atrial fibrillation Continue rate limiting medications Patient on warfarin continue Acute on chronic kidney disease stage III Baseline creatinine around 1.6-1.8 Monitor renal functions Diabetes mellitus Hold oral agents Start on sliding scale insulin Monitor blood glucose ACHS Abdominal distention/? Sigmoid volvulus CT abdomen pelvis concerning for sigmoid volvulus Colorectal surgery consulted, appreciate recommendations No symptoms of abdominal pain. Continue diet Surgery signed off Chronic neck pain Plan to undergo cervical surgery as an outpatient basis Continue home medications, pain control Discussed with Dr. Pond. Plan for surgical intervention at later date once medically optimized as an outpatient basis Continue current pain regimen. DVT prophylaxis; patient already on anticoagulation therapy Code status: Full Code Case management for discharge planning anticipate discharge in couple of days time JUANPABLO PANDEY MD * Brit Younger MD - 01/01/2023 5:22 PM CDT [facility] PROGRESS NOTE Name:Obie Sims Age:67-year-old Sex:male :1955 CHIEF COMPLAINT: CHF SUBJECTIVE: Voices ongoing SOB Denies CP Tele reviewed: Afib w/ CVR ASSESSMENT AND PLAN: CHF (systolic/diastolic) -- acute on chronic. RLE ulceration/cellulitis Aortic stenosis -- S/P AVR (1999) and bioprosthesis (2013). Severe pulmonary HTN CAD Hx of atrial fibrillation -- S/P ablation. ALICIA on CKD Carotid artery disease COPD HTN Hyperlipidemia Diabetes mellitus -- type II. Anxiety Increase lasix to 80mg BID with hold parameters Ascites/anasarca secondary to right heart failure/pulmonary hypertension. Will continue attempts at diuresis and maximizing GDMT for CHF while following renal function closely. Will adjust meds as BP allows. Antibiotics continue for LE ulcerations/cellulitis. Patient Active Problem List Diagnosis S/P ablation of atrial fibrillation LV dysfunction Essential hypertension Mixed hyperlipidemia Diabetes mellitus, type II (CMS/HCC) Coronary artery disease involving [place] coronary artery of [place] heart without angina pectoris COPD (chronic obstructive pulmonary disease) ([facility]) Carotid disease, bilateral ([facility]) Arthritis Aortic stenosis Chronic anticoagulation Chronic atrial fibrillation ([facility]) S/P aortic valve replacement with bioprosthetic valve Varicose veins of bilateral lower extremities with other complications Abnormal ankle brachial index (STELLA) Claudication ([facility]) Pain in both lower extremities Abnormal finding on lung imaging Abnormal finding on pulmonary function testing Shortness of breath TIA (transient ischemic attack) Obstructive sleep apnea (adult) (pediatric) Pulmonary hypertension ([facility]) Asymptomatic carotid artery stenosis, bilateral Mild persistent asthma without complication Leg edema Other closed fracture of distal end of right fibula with routine healing, subsequent encounter NSTEMI (non-ST elevated myocardial infarction) ([facility]) Elevated troponin Elevated brain natriuretic peptide (BNP) level Fall CHF (congestive heart failure) ([facility]) Review of Systems: Review of Systems Constitutional: Positive for fatigue. Respiratory: Positive for shortness of breath. Cardiovascular: Positive for leg swelling.Negative for chest pain. Gastrointestinal: Positive for abdominal pain (distension). Musculoskeletal: Positive for myalgias. Medications: Scheduled Meds: amoxicillin-clavulanate 875 mg Oral 2 times per day aspirin EC 81 mg Oral Daily atorvastatin 80 mg Oral Nightly at bedtime carvedilol 3.125 mg Oral BID ipratropium-albuterol 3 mL Nebulization 2 times daily And fluticasone propionate 1 puff Inhalation 2 times daily furosemide 60 mg Intravenous BID gabapentin 300 mg Oral Daily gabapentin 600 mg Oral Nightly at bedtime insulin lispro 0-8 Units Subcutaneous 4x Daily AC and at bedtime isosorbide dinitrate-hydralazine 0.5 tablet Oral TID nystatin Topical BID pantoprazole EC 40 mg Oral Daily rOPINIRole 4 mg Oral Nightly at bedtime sertraline 50 mg Oral Daily spironolactone 25 mg Oral Daily warfarin (COUMADIN) pharmacy to dose Oral See Admin Instructions warfarin 3 mg Oral Once Continuous Infusions: PRN Meds: acetaminophen, albuterol sulfate HFA, dextrose 10 % bolus, glucagon, glucose, HYDROcodone-acetaminophen, melatonin, morphine, ondansetron, polyethylene glycol, traZODone OBJECTIVE Weight change in the last 24 hours: Body mass index is 35.48 kg/m??. Wt Readings from Last 3 Encounters: 01/01/23 99.7 kg (219 lb 12.8 oz) 12/28/22 102.1 kg (225 lb) 11/09/22 102.1 kg (225 lb) Intake/Output past 24 Hours: Intake/Output Summary (Last 24 hours) at 01/01/2023 1723 Last data filed at 01/01/2023 0854 Gross per 24 hour Intake 700 ml Output 900 ml Net -200 ml Filed Vitals: 01/01/23 0313 01/01/23 0500 01/01/23 0814 01/01/23 1716 BP: 137/64 105/69 93/57 Pulse: 61 77 76 Resp: 16 Temp: 97.9 ??F (36.6 ??C) 97.9 ??F (36.6 ??C) TempSrc: Oral SpO2: 99% 97% (!) 88% Weight: 99.7 kg (219 lb 12.8 oz) Height: Physical Exam Constitutional: Appearance: He is well-developed. HENT: Head: Normocephalic and atraumatic. Eyes: Pupils: Pupils are equal, round, and reactive to light. Cardiovascular: Rate and Rhythm: Normal rate and regular rhythm. Heart sounds: No murmur heard. No friction rub. Pulmonary: Effort: No respiratory distress. Breath sounds: No wheezing or rales. Chest: Chest wall: No tenderness. Abdominal: General: Bowel sounds are normal. There is distension. Palpations: Abdomen is soft. Tenderness: There is no abdominal tenderness. There is no guarding or rebound. Musculoskeletal: General: Swelling present. Normal range of motion. Cervical back: Normal range of motion and neck supple. Skin: General: Skin is warm and dry. Findings: No rash. Comments: Lower extremity edema. Bilateral stasis dermatitis changes, right lower extremity ulceration/dressed pleasant Neurological: Mental Status: He is alert and oriented to person, place, and time. LABORATORY/INVESTIGATIONS: Recent Labs 12/30/22 1034 12/31/2252701/01/23 0944 WBC 8.66 7.90 8.66 HGB 8.6* 8.3* 8.3* HCT 30.3* 29.3* 29.2* MCV 82.8 80.7 80.9 PLT 174 183 182 Recent Labs 12/30/22 1034 12/31/22 0528 01/01/23 0944 NA 131* 132* 131* K 4.2 4.1 4.5 CL 101 99 97* CO2 23.9 29.5 30.1 AGAP 6.1 3.5* 3.9* BUN 34* 37* 41* CR 1.98* 2.15* 2.25* GLU 125* 120* 191* Recent Labs 01/01/23 0456 INR 2.1* Results for orders placed or performed during the hospital encounter of 12/28/22 PRO-BRAIN NATRIURETIC PEPTIDE Result Value Ref Range PRO-B TYPE NATRIURETIC PEPTIDE 5,795 (H) <125 PG/ML No results for input(s): TROP, TROPIWB in the last 72 hours. No results for input(s): CHOL, TRI, HDL, TP, ALB, ALT, HGBA1C, TSH in the last 72 hours. Invalid input(s): LDLAGAP, IMAGING: TTE 12/29/2022 ++++++++++++++++++++++++++++++++++++ SUMMARY: ++++++++++++++++++++++++++++++++++++ Technically difficult exam. Mild concentric left ventricular hypertrophy. The calculated ejection fraction is 37%. The right ventricular size is enlarged. Right ventricular systolic function is moderately depressed. Biatrial enlargement. 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 No evidence of aortic regurgitation. Trace mitral regurgitation. Unable to reliably quantitate pulmonary systolic pressure. ECG/TELEMETRY Afib w/ CVR Signed BRIT YOUNGER MD 01/01/2023 * Rylie Oh, PharmD - 01/01/2023 1:33 PM CDT Warfarin - Pharmacy Dosing Service Note Obie Sims is a 67-year-old male for which pharmacy has been consulted to dose warfarin for A.fib. Goal INR is 2-3. Warfarin Order Set Activated: Yes Warfarin Start Date: continuation from home Past Medical History: Diagnosis Date Abnormal ankle brachial index (STELLA) Acute on chronic heart failure, unspecified heart failure type ([facility]) Anxiety Aortic valve stenosis Arthritis Asthma, mild persistent 04/06/2021 Atrial fibrillation ([facility]) s/p PVI/WACA 10/2015 Bilateral leg pain Carotid disease, bilateral ([facility]) [place]congestive heart [place]) [place] [place] COPD (chronic obstructive pulmonary disease) [place] Coronary artery disease Diabetes mellitus, type II [place] Edema 04/19/2018 2+ pitting History of blood transfusion Hyperlipidemia Hypertension LV dysfunction Osteoarthritis PAD (peripheral artery disease) ([facility]) Pneumonia Restless leg syndrome S/P aortic valve replacement with bioprosthetic valve 2013 SOB (shortness of breath) Stroke [place] Varicose veins of bilateral lower extremities with other complications Weight gain with edema Home warfarin dose: 3 mg daily previously confirmed with patient Past admission was on 5.5 mg Daily Bridging agent: none Vitamin K use: No Diet: PO Recent Labs Lab 12/28/22 1217 12/29/22 0403 12/30/22 1034 12/31/22 0528 01/01/23 0944 HGB 9.1* < > 8.6* 8.3* 8.3* HCT 31.7* < > 30.3* 29.3* 29.2* PLT 201 < > 174 183 182 AST 31 -- -- -- -- ALT 24 -- -- -- -- ALKP 133* -- -- -- -- ALB 3.3* -- -- -- -- < > = values in this interval not displayed. Date INR Dose Received 12/28 2.7 2 mg 12/29 2.9 2 mg x 1 12/30 2.9 1.5 mg 12/31 2.4 2 mg 01/01 2.1 3 mg x 1 Drug interactions: Potential to increase INR: Augmentin (12/31-), cefepime (12/28-12/31), ropinirole (CREDIT [employer]LECTIONS REP) Potential to decrease INR: Spironolactone, Trazodone (12/31 PRN Potential to increase the risk of bleeding: aspirin (on a PPI), sertraline ([employer]LECTIONS REP) Warfarin Sensitivity: high, based on the following risk factors: HF exacerbation, concomitant antiplatelet therapy, age 66-79, 1 moderate drug interaction, and diagnosis of heart failure. Hgb/Hct today are stable INR today is Therapeutic trending down The plan is to give a 3 mg dose once tonight and recheck an INR in the morning to assist with subsequent dosing. Pharmacy will continue to monitor labs and notes daily, adjusting the dose as clinically appropriate. Thank you for the consult. Pharmacy to dose per Dr. Virgil Oh, PharmD Phone number: [phone] 01/01/2023 1:33 PM * Catrachita Kristopher Coon, JAKE - 01/01/2023 1:33 PM CDT OT Treatment Discharge Recommendation: Swing bed unit DME equipment recommendation: none Activity Recommendation for exploration geologist: up with assist of 1 using wheeled walker in room 01/01/23 1128 Therapy Visit OT Received On 12/30/22 Reason for admission Pt admission with hx of SOB, LE edema, abdominal swelling, and poor PO intake,concern for CHF exac/ vol overload, imaging showing sigmoid volvulus, no surgical intervention recommended at this time per surgery team, PMHx: C3,4 disc herniation per pt report, pt awaiting surgery, CAD, RLE cellulitis, COPD, s/p AVR, DM2, afib, CHF, severe pulmonary HTN, CKD stage III, CVA, lipoma, HTN, HLD, recent ankle fracture , order: eval/ treat, fall precautions, up with assist Ordering Provider Juanpablo Pandey MD Verified Two Patient Identifiers Yes Patient consents to therapy Yes Acute Inpatient OT Time Calculation OT Start Time 1128 OT Stop Time 1155 OT Time Calculation (min) 27 min Precautions General Precautions Bed Alarm;Chair Alarm;Fall Risk;Supplemental oxygen Instructed on Precautions Yes;Verbalizes understanding Other tele, 2L O2 [place] Home Living Home Living Comments Pt lives with his daughter and her family in a one story house with a basement. Pt has 2-3 YANG with handrail. Pt reports he lives in the basement and has a chair lift to the basement. Pt has a walk-in shower with seat and grab bars and standard toilet with riser with arms. Pt needs some help with dressing and bathing. Pt's daughter takes care of all IADLs. Pt was ambulating with wh/walker in the house and cane when he would go out of the home. Pt reports 3 falls due to LE weakness/unsteadiness. Subjective Subjective Rn ok'd session. Patient presents up in recliner chair and reports his neck hurts and hehas been having trouble wtih it for 4 months. 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 Pain Pain Yes Pain Score Did not rate Location neck Interventions Re-direction;Re-positioning;Relaxation Activity Tolerance Endurance Quality Fair Limiting Factors to Endurance Acute deconditioning;Fatigue;Pain;Weakness Cognition Overall Cognitive Status WFL Arousal/Alertness Appropriate responses to stimuli Attention Span Appears intact Memory Appears intact Orientation Level Oriented X4 Following Commands Follows all commands and directions without difficulty Safety Judgment Decreased awareness of need for assistance Awareness of Errors Assistance required to identify errors made Deficits Fully aware of deficits Problem Solving Assistance required to identify errors made Comments Pt continues to require encouragement throughout. Pt slightly perseverating on his neck surgery that he needs. Pt requires increased cueing for safety with the WW. Motor Planning Appears intact Perseveration Not present Initiation Appears intact ADL Grooming Assistance CGA;Standing at sink Grooming Deficit Standing with assistive device;Wash/dry hands Grooming Comment able to stand up at sink to wash his hands with verbal cues and steadying assist Bathing Comment Patient reports at home his daughter helps him in the shower and takes his walker in with him. UE Dressing Assistance Minimal;Sitting in chair UE Dressing Comment Educated patient on how to doff/don gown seated, overall requires min assist. LE Dressing Assistance Moderate;Sitting in chair;Alternating sit/stand LE Dressing Deficit Thread RLE into pants;Thread LLE into pants;Pull up over hips;Verbal cueing LE Dressing Comment Patient requires assist at distal BLEs to don pants but is able to pull up overhips at min assist for balance Bed Mobility Other (Comment) Pt up in chair upon ent. Functional Transfers Sit to Stand Contact guard assist Functional Mobility Patient using wheeled walker in room at close CGA with min verbal cues for safety and walker management Balance Sitting - Static SBA Sitting - Dynamic SBA Standing - Static CGA Standing - Dynamic CGA;Support of both upper extremities Recommendation OT Recommendation Swing bed unit Plan OT Treatment/Intervention Self-care training;Therapeutic exercises;Therapeutic activities;Patient/family training;Functional activity;Safety Progress Slow progress, medical status limitations OT Frequency 5 times/week OT - Next Appointment 01/01/23 If this is the last treatment note, it will serve as the discharge summary Yes End of Session End of Session Safety Chair alarm set/activated;Call light within reach;Nursing aware of session;Transfer status education Education: Primary Learners Name: Obie Sims Primary Language of learner: Moldovan Patient was educated on precautions transfers ADLs balance therapy plan gait safety energy conservation. Education was completed one to one this date. Preference of learning new concepts one to one Barriers to education this date were pain level of alertness. Response to education this date demos with verbal cues needs follow up needs assistance. * Juanpablo Pandey MD - 01/01/2023 1:10 PM CDT Progress note Chief complaint: CHF, cellulitis Subjective Patient seen and examined. Patient sitting in chair. Patient feels well denies any complaints of chest pain, shortness of breath Denies any complaints of nausea, vomiting Review of Systems All other systems reviewed and are negative. OBJECTIVE Patient Vitals for the past 24 hrs: BP Temp Temp src Pulse Resp SpO2 Weight 01/01/23 0814 105/69 97.9 ??F (36.6 ??C) -- 77 -- 97 % -- 01/01/23 0500 -- -- -- -- -- -- 99.7 kg (219 lb 12.8 oz) 01/01/23 0313 137/64 97.9 ??F (36.6 ??C) Oral 61 16 99 % -- 12/31/22 1949 100/68 97.9 ??F (36.6 ??C) Oral 93 20 96 % -- Physical Exam Constitutional: Appearance: He is well-developed. HENT: Head: Normocephalic and atraumatic. Eyes: Pupils: Pupils are equal, round, and reactive to light. Cardiovascular: Rate and Rhythm: Normal rate and regular rhythm. Heart sounds: No murmur heard. No friction rub. Pulmonary: Effort: No respiratory distress. Breath sounds: No wheezing or rales. Chest: Chest wall: No tenderness. Abdominal: General: Bowel sounds are normal. There is distension. Palpations: Abdomen is soft. Tenderness: There is no abdominal tenderness. There is no guarding or rebound. Musculoskeletal: General: Swelling present. Normal range of motion. Cervical back: Normal range of motion and neck supple. Skin: General: Skin is warm and dry. Findings: No rash. Comments: Lower extremity edema. Bilateral stasis dermatitis changes, right lower extremity ulceration/dressed pleasant Neurological: Mental Status: He is alert and oriented to person, place, and time. LABS:. Recent Labs 12/30/22 1034 12/31/22 0528 01/01/23 0944 WBC 8.66 7.90 8.66 HGB 8.6* 8.3* 8.3* HCT 30.3* 29.3* 29.2* MCV 82.8 80.7 80.9 PLT 174 183 182 RBC 3.66* 3.63* 3.61* Recent Labs Lab 12/28/22 1217 12/29/22 0403 12/30/22 1034 12/31/22 0528 01/01/23 0944 NA 135* < > 131* 132* 131* K 4.9 < > 4.2 4.1 4.5 CL 101 < > 101 99 97* CO2 28.1 < > 23.9 29.5 30.1 AGAP 5.9 < > 6.1 3.5* 3.9* BUN 35* < > 34* 37* 41* CR 2.26* < > 1.98* 2.15* 2.25* GLU 115* < > 125* 120* 191* CA 9.6 < > 9.2 8.9 9.2 TP 8.3* -- -- -- -- ALB 3.3* -- -- -- -- TBIL 1.0 -- -- -- -- ALKP 133* -- -- -- -- AST 31 -- -- -- -- ALT 24 -- -- -- -- < > = values in this interval not displayed. Intake/Output Summary (Last 24 hours) at 01/01/2023 1310 Last data filed at 01/01/2023 0854 Gross per 24 hour Intake 1450 ml Output 1500 ml Net -50 ml RADIOLOGY : REVIEWED MEDICATIONS Scheduled medications ??? amoxicillin-clavulanate 875 mg Oral 2 times per day ??? aspirin EC 81 mg Oral Daily ??? atorvastatin 80 mg Oral Nightly at bedtime ??? carvedilol 3.125 mg Oral BID ??? ipratropium-albuterol 3 mL Nebulization 2 times daily And ??? fluticasone propionate 1 puff Inhalation 2 times daily ??? furosemide 60 mg Intravenous BID ??? gabapentin 300 mg Oral Daily ??? gabapentin 600 mg Oral Nightly at bedtime ??? insulin lispro 0-8 Units Subcutaneous 4x Daily AC and at bedtime ??? isosorbide dinitrate-hydralazine 0.5 tablet Oral TID ??? nystatin Topical BID ??? pantoprazole EC 40 mg Oral Daily ??? rOPINIRole 4 mg Oral Nightly at bedtime ??? sertraline 50 mg Oral Daily ??? spironolactone 25 mg Oral Daily ??? warfarin (COUMADIN) pharmacy to dose Oral See Admin Instructions Infusion PRN acetaminophen, albuterol sulfate HFA, dextrose 10 % bolus, glucagon, glucose, HYDROcodone-acetaminophen, melatonin, morphine, ondansetron, polyethylene glycol, traZODone ASSESSMENT /PLAN CHF (congestive heart failure) ([facility]) Acute on chronic systolic/diastolic heart failure Aortic stenosis s/p MVR in 1999 & bioprosthetic valve (2013) Severe pulm hypertension Coronary artery disease Admitted with increased shortness of breath noted to have elevated BNP Continue IV Lasix- Cardiology consulted. Appreciate cardiology input Continue home medications Monitor input output, daily weights, renal functions closely Echocardiogram ordered-follow results Monitor on telemetry Right lower extremity cellulitis Chronic superficial ulceration of right lower extremity Improving will transition to p.o. Augmentin-complete 7 to 10 days course Cultures no growth so far Wound care consultation. Appreciate wound care input History of atrial fibrillation Continue rate limiting medications Patient on warfarin continue Acute on chronic kidney disease stage III Baseline creatinine around 1.6-1.8 Monitor renal functions Diabetes mellitus Hold oral agents Start on sliding scale insulin Monitor blood glucose ACHS Abdominal distention/? Sigmoid volvulus CT abdomen pelvis concerning for sigmoid volvulus Colorectal surgery consulted, appreciate recommendations No symptoms of abdominal pain. Continue diet Surgery signed off Chronic neck pain Plan to undergo cervical surgery as an outpatient basis Continue home medications, pain control Discussed with Dr. Pond. Plan for surgical intervention at later date once medically optimized as an outpatient basis DVT prophylaxis; patient already on anticoagulation therapy Code status: Full Code Case management for discharge planning anticipate discharge in couple of days time JUANPABLO PANDEY MD * Zayra Martínez RN - 01/01/2023 10:15 AM CDT [facility] reviewing for [facility], pending call back. Clarified to liaison that pt's surgery was for his neck and is now postponed at this time. [facility] states [facility] will not have any beds, [facility]. [facility] accepted by [facility], but they can not take him until Wednesday. 01/01/23 1015 Interdisciplinary Group Conference Team Members Present Physician Barriers to Discharge Barriers Other (Comment) Other (Comment)follow up needs placement. * Roland Longoria RN - 01/01/2023 12:10 AM CDT Problem: Tissue Perfusion - Cardiopulmonary, Altered Goal: Absence of chest pain Outcome: Progressing Problem: Fluid Volume - Excess Goal: Absence of fluid overload signs and symptoms Outcome: Progressing Goal: Electrolytes within specified parameters Outcome: Progressing Problem: Activity Intolerance Goal: Improved activity tolerance Outcome: Progressing Problem: Skin integrity, Impaired-wound Goal: Absence of new skin breakdown Outcome: Progressing Goal: Evidence of wound healing Outcome: Progressing Problem: Pain control/comfort Goal: Promote pain control/comfort Outcome: Progressing Problem: Mobility - Impaired Goal: Able to use ambulatory assistive device appropriately Outcome: Progressing Goal: Knowledge of need for increased mobility Outcome: Progressing Problem: Pain Goal: Patient's pain/discomfort [...] and interventions as needed. Outcome: Progressing Problem: Venous Thromboembolism - Risk of Goal: Absence of venous thromboembolism Outcome: Progressing Problem: Reduced risk for falls/injury Goal: Reduced Risk for Falls/Injury Outcome: Progressing * Xiomy Vargas RN-LP - 12/31/2022 5:55 PM CDT Problem: Pain Goal: Patient's pain/discomfort [...] and interventions as needed. Outcome: Progressing Problem: Venous Thromboembolism - Risk of Goal: Absence of venous thromboembolism Outcome: Progressing Problem: Mobility - Impaired Goal: Able to use ambulatory assistive device appropriately Outcome: Progressing Goal: Knowledge of need for increased mobility Outcome: Progressing Problem: Gas Exchange - Impaired Goal: Absence of cyanosis signs and symptoms Outcome: Progressing Goal: Pulse oximetry within specified parameters Outcome: Progressing Problem: Discharge Planning Goal: Knowledge [...] of new skin breakdown Outcome: Progressing Problem: Discharge Planning Goal: Knowledge of discharge instructions Outcome: Progressing Problem: Activity Intolerance Goal: Improved activity tolerance Outcome: Progressing Problem: Fluid Volume - Excess Goal: Absence of fluid overload signs and symptoms Outcome: Progressing Goal: Electrolytes within specified parameters Outcome: Progressing Problem: Reduced risk for falls/injury Goal: Reduced Risk for Falls/Injury Outcome: Progressing Goal: Reduced Risk of Confusion (Acute vs Chronic) Outcome: Progressing Goal: Reduced Risk of Symptomatic Depression Outcome: Progressing Goal: Reduced Risk of Altered Elimination Outcome: Progressing Goal: Reduced Risk of Dizziness/Vertigo/Balance Outcome: Progressing Goal: Reduced Risk of Polypharmacy Outcome: Progressing Problem: Skin integrity, at risk Goal: Absence of new skin breakdown Outcome: Progressing Problem: Activity Intolerance Goal: Improved activity tolerance Outcome: Progressing Goal: Able to participate in acute rehabilitation Outcome: Progressing Goal: Able to perform prescribed physical activity Outcome: Progressing Problem: Tissue Perfusion - Cardiopulmonary, Altered Goal: Absence of chest pain Outcome: Progressing Problem: Venous Thromboembolism - Risk of Goal: Absence of venous thromboembolism Outcome: Progressing * Priyanka Kelly PharmD - 12/31/2022 3:20 PM CDT Pharmacy Clinical Services: Sign off note Pharmacy has been consulted to dose vancomycin. Pharmacy will now sign off dosing as the drug has been discontinued. Thank you for allowing us the opportunity to participate in the care of Obie Sims. Please let pharmacy know if we can be of further assistance. PRIYANKA KELLY PharmD Phone number: [phone] 12/31/2022 3:20 PM * Julia Maurer PA-C - 12/31/2022 2:29 PM CDT Obie Sims is a 67-year-old male patient. Primary Dairy Bar Manager: Dr Pandey SUBJECTIVE: CHF, severe pulmonary hypertension, CAD, atrial fibrillation, history of bioprosthetic AVR, volvulus, anasarca, lower extremity cellulitis, CKD, neck pain Main complaint is neck pain. Abdomen remains tight but breathing is better and edema is improved. ASSESSMENT/PLAN: 1. Acute on chronic biventricular heart failure with severe pulmonary hypertension-continue diuresis as able, medical management limited due to renal failure. Started on BiDil. Remains on Coreg. 2. Atrial fibrillation-rate controlled in the 60s, on beta-kim and Coumadin anticoagulation 3. History of bioprosthetic AVR-functioning well on echocardiogram Principal Problem: CHF (congestive heart failure) (CMS/[facility]) SNOMED CT(R): CONGESTIVE HEART FAILURE Current Facility-Administered Medications Medication Dose Route Frequency Provider Last Rate Last Admin acetaminophen (TYLENOL) tablet 650 mg 650 mg Oral Q6H PRN Juanpablo Pandey MD 650 mg at 12/29/22 0847 albuterol sulfate HFA 108 (90 Base) MCG/ACT inhaler 2 puff 2 puff Inhalation Q4H PRN Juanpablo Pandey MD aspirin EC (ECOTRIN) tablet 81 mg 81 mg Oral Daily Juanpablo Pandey MD 81 mg at 12/31/22926 atorvastatin (LIPITOR) tablet 80 mg 80 mg Oral Nightly at bedtime Juanpablo Pandey MD 80 mg at 12/30/222039 carvedilol (COREG) tablet 3.125 mg 3.125 mg Oral BID Juanpablo Pandey MD 3.125 mg at 12/31/22926 ceFEPIme (MAXIPIME) 2 g in sodium chloride (PF) 0.9 % 10 mL IV 2 g Intravenous Q12H Juanpablo Pandey MD 2 g at 12/31/22925 dextrose 10 % bolus infusion 125-250 mL 125-250 mL Intravenous PRN Irene Wall NP ipratropium-albuterol (DUONEB) 0.5-2.5 (3) MG/3ML nebulizer solution 3 mL 3 mL Nebulization 2 timesdaily Juanpablo Pandey MD 3 mL at 12/31/22 0834 And fluticasone propionate (FLOVENT HFA) 44 MCG/ACT inhaler 1 puff 1 puff Inhalation 2 times daily Yris Pandey MD 1 puff at 12/31/22 07 furosemide (LASIX) injection 60 mg 60 mg Intravenous BID Juanpablo Pandey MD 60 mg at 12/31/22925 gabapentin (NEURONTIN) capsule 300 mg 300 mg Oral Daily Juanpablo Pandey MD 300 mg at 12/31/22926 gabapentin (NEURONTIN) capsule 600 mg 600 mg Oral Nightly at bedtime Juanpablo Pandey MD 600 mg at12/30/222039 glucagon injection 1 mg 1 mg Intramuscular Once PRN Irene Wall NP glucose oral gel 32-64 mL 15-30 g of dextrose Oral PRN Irene Wall NP 32 mL at 12/29/22 0750 HYDROcodone-acetaminophen (NORCO) 7.5-325 MG tablet 1 tablet 1 tablet Oral BID PRN Juanpablo Pandey MD 1 tablet at 12/31/22 0700 insulin lispro (HUMALOG) injection 0-8 Units 0-8 Units Subcutaneous 4x Daily AC and at bedtime Yris Pandey MD 2 Units at 12/31/22 1248 isosorbide dinitrate-hydralazine (BIDIL) 20-37.5 MG tablet 0.5 tablet 0.5 tablet Oral TID Amauri Pandey MD 0.5 tablet at 12/31/22926 melatonin 5 mg 5 mg Oral Nightly PRN Irene Wall, FLOR 5 mg at 12/30/222040 morphine injection 2 mg 2 mg Intravenous Q4H PRN Fortunato Guzmán MD 2 mg at 12/31/22 124 nystatin (MYCOSTATIN) powder Topical BID Juanpablo Pandey MD Given at 12/31/22 09 ondansetron (ZOFRAN) injection 4 mg 4 mg Intravenous Q8H PRN Juanpablo Pandey MD pantoprazole EC (PROTONIX) tablet 40 mg 40 mg Oral Daily Juanpablo Pandey MD 40 mg at 12/31/22926 polyethylene glycol (GLYCOLAX) packet 17 g 17 g Oral Daily PRN Juanpablo Pandey MD rOPINIRole (REQUIP) tablet 4 mg 4 mg Oral Nightly at bedtime Juanpablo Pandey MD 4 mg at 12/30/222039 sertraline (ZOLOFT) tablet 50 mg 50 mg Oral Daily Juanpablo Pandey MD 50 mg at 12/31/22926 spironolactone (ALDACTONE) tablet 25 mg 25 mg Oral Daily Juanpablo Pandey MD 25 mg at 12/31/22926 traZODone (DESYREL) tablet 100 mg 100 mg Oral Nightly PRN Irene Wall NP 100 mg at 12/30/222039 vancomycin 750 mg in NS 250 mL IVPB 750 mg Intravenous Q24H Juanpablo Pandey MD Stopped at 12/30/22 2300 vancomycin pharmacy to dose placeholder Intravenous See Admin Instructions Juanpablo Pandey MD warfarin (COUMADIN) pharmacy to dose placeholder Oral See Admin Instructions Juanpablo Pandey MD warfarin (COUMADIN) tablet 2 mg 2 mg Oral Once Juanpablo Pandey MD Filed Vitals: 12/30/22201012/31/22 0622 12/31/22 0809 12/31/22 1100 BP: 123/71 116/59 106/67 Pulse: 88 64 (!) 102 Resp: Temp: 97.5 ??F (36.4 ??C) 97.5 ??F (36.4 ??C) 97.3 ??F (36.3 ??C) TempSrc: SpO2: 98% 95% 100% Weight: 100.6 kg (221 lb 12.5 oz) Height: Intake/Output Summary (Last 24 hours) at 12/31/2022 1429 Last data filed at 12/31/2022 0100 Gross per 24 hour Intake 100 ml Output 2100 ml Net -2000 ml Recent Results (from the past 24 hour(s)) POCT glucose Collection Time: 12/30/22 4:59 PM Result Value Ref Range GLUCOSE POC 180 (H) 70 - 109 POCT glucose Collection Time: 12/30/22 8:12 PM Result Value Ref Range GLUCOSE POC 202 (H) 70 - 109 PROTIME/INR, VENOUS - Daily Collection Time: 12/31/22 5:28 AM Result Value Ref Range PROTIME 28.0 (H) 9.4 - 12.5 SEC INR 2.4 (H) 0.8 - 1.1 BASIC METABOLIC PANEL Collection Time: 12/31/22 5:28 AM Result Value Ref Range SODIUM S/P/B 132 (L) 136 - 145 MMOL/L POTASSIUM S/P/B 4.1 3.5 - 5.1 MMOL/L CHLORIDE S/P/B 99 98 - 107 MMOL/L CO2 29.5 21.0 - 32.0 MMOL/L GLUCOSE 120 (H) 74 - 106 MG/DL BUN 37 (H) 7 - 18 MG/DL CREATININE S/P/B 2.15 (H) 0.70 - 1.30 MG/DL CALCIUM 8.9 8.5 - 10.1 MG/DL ANION GAP 3.5 (L) 5.0 - 15.0 MMOL/L OSMOLALITY (CALC) 284 MOSM/KG GFR ESTIMATE 33 (L) >90 ML/MIN/1.73 M2 GFR NOTES GFR REFERENCES: CBC W/DIFF AUTOMATED Collection Time: 12/31/22 5:28 AM Result Value Ref Range WBC 7.90 4.00 - 10.80 x10'3/uL RBC 3.63 (L) 4.50 - 6.10 x10'6/uL HGB 8.3 (L) 13.0 - 18.0 G/DL HCT 29.3 (L) 37.0 - 52.0 % MCV 80.7 78.0 - 100.0 FL MCH 22.9 (L) 27.0 - 31.0 PG MCHC 28.3 (L) 33.0 - 36.0 G/DL RDW 18.3 (H) 11.5 - 14.5 % PLT 183 150 - 350 x10'3/uL MPV 10.5 (H) 7.4 - 10.4 FL ABS. NEUTROPHILS 5.15 1.60 - 8.30 x10'3/uL ABS. LYMPHOCYTES 1.14 0.80 - 4.70 x10'3/uL ABS. MONOCYTES 1.19 0.00 - 1.50 x10'3/uL ABS. EOSINOPHILS 0.32 0.00 - 0.40 x10'3/uL ABS. BASOPHILS 0.07 0.00 - 0.20 x10'3/uL ABS. IMMATURE GRANULOCYTES 0.03 0.00 - 0.03 x10'3/uL ABS. NUCLEATED RBC'S 0.00 0.0 x10'3/uL MAGNESIUM Collection Time: 12/31/22 5:28 AM Result Value Ref Range MAGNESIUM 2.4 1.6 - 2.6 MG/DL RBC MORPHOLOGY Collection Time: 12/31/22 5:28 AM Result Value Ref Range RBC MORPHOLOGY ANISOCYTOSIS POCT glucose Collection Time: 12/31/22 6:23 AM Result Value Ref Range GLUCOSE POC 167 (H) 70 - 109 POCT glucose Collection Time: 12/31/22 11:31 AM Result Value Ref Range GLUCOSE POC 159 (H) 70 - 109 Results for orders placed or performed during the hospital encounter of 12/28/22 PRO-BRAIN NATRIURETIC PEPTIDE Result Value Ref Range PRO-B TYPE NATRIURETIC PEPTIDE 5,795 (H) <125 PG/ML Recent Labs Lab 12/28/22 1217 TROP 40 Review of Systems Constitutional: Positive for fatigue. Respiratory: Positive for shortness of breath. Cardiovascular: Positive for leg swelling.Negative for chest pain. Gastrointestinal: Positive for abdominal pain (distension). Musculoskeletal: Positive for myalgias. Physical Exam Cardiovascular: Rate and Rhythm: Normal rate and regular rhythm. Pulmonary: Effort: No respiratory distress. Abdominal: General: There is distension. Musculoskeletal: Right lower leg: Edema present. Left lower leg: Edema present. Neurological: General: No focal deficit present. Mental Status: He is alert. Results for orders placed or performed during the hospital encounter of 12/28/22 ECG 12 lead Narrative [facility]-ED Test Date: 2022-12-28 Pat Name: OBIE SIMS Department: 70 Room: 484 Gender: Male Director Digital Advertising: RLAlpesh : 1955 Requested By: EVELINE JACINTO Order Number: [id number] Reading MD: Domingo Parks Measurements Intervals [place] Rate: 90 P: IN: 0 QRS: -35 QRSD: 132 T: 136 QT: 388 QTc: 476 Interpretive Statements ATRIAL FIBRILLATION MARKED LEFT AXIS DEVIATION [QRS AXIS < -30] LEFT BUNDLE BRANCH BLOCK [120+ ms QRS DURATION, 80+ ms Q/S IN V1/V2, 85+ ms R IN I/aVL/V5/V6] TELEMETRY:a-fib 60s, PVC JULIA MAURER PA-C 12/31/[address] Pandey I spent 14 minutes today reviewing the patient's medical record, obtaining history, performing an exam, and documenting in the medical record. Cosigned by Amauri Pandey MD at 12/31/2022 4:36 PM CDT Associated attestation - Amauri Pandey MD - 12/31/2022 4:36 PM CDT I, AMAURI PANDEY MD, have seen and examined the patient and discussed the management with the Mid-Level Provider. I reviewed the MLP's note and agree with the findings and plan of care, except as I have documented. Plan of care developed under my direct supervision. Chart reviewed. Agree with PA assessment/management. * Juanpablo Pandey MD - 12/31/2022 11:56 AM CDT Progress note Chief complaint: CHF, cellulitis Subjective Patient seen and examined. Patient sitting in chair. Patient reports shortness of breath improving denies any complaints of chest pain Still reports lower extremity edema, pain Review of Systems All other systems reviewed and are negative. OBJECTIVE Patient Vitals for the past 24 hrs: BP Temp Temp src Pulse Resp SpO2 12/31/22 0809 106/67 97.3 ??F (36.3 ??C) -- (!) 102 -- 100 % 12/31/22 0622 116/59 97.5 ??F (36.4 ??C) -- 64 -- 95 % 12/30/222010 123/71 97.5 ??F (36.4 ??C) -- 88 -- 98 % 12/30/22 1629 120/70 97.5 ??F (36.4 ??C) Oral 90 18 99 % Physical Exam Constitutional: Appearance: He is well-developed. HENT: Head: Normocephalic and atraumatic. Eyes: Pupils: Pupils are equal, round, and reactive to light. Cardiovascular: Rate and Rhythm: Normal rate and regular rhythm. Heart sounds: No murmur heard. No friction rub. Pulmonary: Effort: No respiratory distress. Breath sounds: No wheezing or rales. Chest: Chest wall: No tenderness. Abdominal: General: Bowel sounds are normal. There is distension. Palpations: Abdomen is soft. Tenderness: There is no abdominal tenderness. There is no guarding or rebound. Musculoskeletal: General: Swelling present. Normal range of motion. Cervical back: Normal range of motion and neck supple. Skin: General: Skin is warm and dry. Findings: No rash. Comments: Lower extremity edema. Bilateral stasis dermatitis changes, right lower extremity ulceration/dressed pleasant Neurological: Mental Status: He is alert and oriented to person, place, and time. LABS:. Recent Labs 12/29/22 0403 12/30/22 1034 12/31/22 0528 WBC 8.73 8.66 7.90 HGB 8.4* 8.6* 8.3* HCT 29.0* 30.3* 29.3* MCV 79.7 82.8 80.7 PLT 174 174 183 RBC 3.64* 3.66* 3.63* Recent Labs Lab 12/24/22 1505 12/28/22 1217 12/29/22 0403 12/30/22 1034 12/31/22 0528 NA 136 135* 134* 131* 132* K 5.0 4.9 4.6 4.2 4.1 CL 100 101 102 101 99 CO2 26.7 28.1 24.4 23.9 29.5 AGAP 9.3 5.9 7.6 6.1 3.5* BUN 38* 35* 34* 34* 37* CR 2.35* 2.26* 2.06* 1.98* 2.15* GLU 99 115* 59* 125* 120* CA 9.3 9.6 9.3 9.2 8.9 TP -- 8.3* -- -- -- ALB 3.1* 3.3* -- -- -- TBIL -- 1.0 -- -- -- ALKP -- 133* -- -- -- AST -- 31 -- -- -- ALT -- 24 -- -- -- Intake/Output Summary (Last 24 hours) at 12/31/2022 1156 Last data filed at 12/31/2022 0100 Gross per 24 hour Intake 800 ml Output 2400 ml Net -1600 ml RADIOLOGY : REVIEWED MEDICATIONS Scheduled medications aspirin EC 81 mg Oral Daily atorvastatin 80 mg Oral Nightly at bedtime carvedilol 3.125 mg Oral BID cefepime 2 g Intravenous Q12H ipratropium-albuterol 3 mL Nebulization 2 times daily And fluticasone propionate 1 puff Inhalation 2 times daily furosemide 60 mg Intravenous BID gabapentin 300 mg Oral Daily gabapentin 600 mg Oral Nightly at bedtime insulin lispro 0-8 Units Subcutaneous 4x Daily AC and at bedtime isosorbide dinitrate-hydralazine 0.5 tablet Oral TID nystatin Topical BID pantoprazole EC 40 mg Oral Daily rOPINIRole 4 mg Oral Nightly at bedtime sertraline 50 mg Oral Daily spironolactone 25 mg Oral Daily vancomycin 750 mg Intravenous Q24H vancomycin pharmacy to dose Intravenous See Admin Instructions warfarin (COUMADIN) pharmacy to dose Oral See Admin Instructions warfarin 2 mg Oral Once Infusion PRN acetaminophen, albuterol sulfate HFA, dextrose 10 % bolus, glucagon, glucose, HYDROcodone-acetaminophen, melatonin, morphine, ondansetron, polyethylene glycol, traZODone ASSESSMENT /PLAN CHF (congestive heart failure) ([facility]) Acute on chronic systolic/diastolic heart failure Aortic stenosis s/p MVR in 2000 & bioprosthetic valve (2013) Severe pulm hypertension Coronary artery disease Admitted with increased shortness of breath noted to have elevated BNP Continue IV Lasix- Cardiology consulted. Appreciate cardiology input Continue home medications Monitor input output, daily weights, renal functions closely Echocardiogram ordered-follow results Monitor on telemetry Right lower extremity cellulitis Chronic superficial ulceration of right lower extremity Patient started on a broad-spectrum antibiotics Follow cultures-simplify antibiotics based on culture sensitivities Wound care consultation. Appreciate wound care input History of atrial fibrillation Continue rate limiting medications Patient on warfarin continue Acute on chronic kidney disease stage III Baseline creatinine around 1.6-1.8 Monitor renal functions Diabetes mellitus Hold oral agents Start on sliding scale insulin Monitor blood glucose ACHS Abdominal distention/? Sigmoid volvulus CT abdomen pelvis concerning for sigmoid volvulus Colorectal surgery consulted, appreciate recommendations No symptoms of abdominal pain. Continue diet Surgery signed off Chronic neck pain Plan to undergo cervical surgery as an outpatient basis Continue home medications, pain control Will notify Dr. Pond. Patient wants to see if he can have a surgery during his hospitalization.Surgery team notified yesterday they will review DVT prophylaxis; patient already on anticoagulation therapy Code status: Full Code JUANPABLO PANDEY MD * Sapphire Ryder, PharmD - 12/31/2022 10:49 AM CDT Warfarin - Pharmacy Dosing Service Note Obie Sims is a 67-year-old male for which pharmacy has been consulted to dose warfarin for A.fib. Goal INR is 2-3. Warfarin Order Set Activated: Yes Warfarin Start Date: continuation from home Past Medical History: Diagnosis Date Abnormal ankle brachial index (STELLA) Acute on chronic heart failure, unspecified heart failure type ([facility]) Anxiety Aortic valve stenosis Arthritis Asthma, mild persistent 04/06/2021 Atrial fibrillation ([facility]) s/p PVI/[facility] 10/2015 Bilateral leg pain Carotid disease, bilateral ([facility]) CHF (congestive heart failure) ([facility]) Claudication ([facility]) COPD (chronic obstructive pulmonary disease) ([facility]) Coronary artery disease Diabetes mellitus, type II ([facility]) Edema 04/19/2018 2+ pitting History of blood transfusion Hyperlipidemia Hypertension LV dysfunction Osteoarthritis PAD (peripheral artery disease) ([facility]) Pneumonia Restless leg syndrome S/P aortic valve replacement with bioprosthetic valve 2013 SOB (shortness of breath) Stroke ([facility]) Varicose veins of bilateral lower extremities with other complications Weight gain with edema Home warfarin dose: 3 mg daily previously confirmed with patient Past admission was on 5.5 mg Daily Bridging agent: none Vitamin K use: No Diet: PO Recent Labs Lab 12/28/22 1217 12/29/22 0403 12/30/22 1034 12/31/22 0528 HGB 9.1* 8.4* 8.6* 8.3* HCT 31.7* 29.0* 30.3* 29.3* PLT 201 174 174 183 AST 31 -- -- -- ALT 24 -- -- -- ALKP 133* -- -- -- ALB 3.3* -- -- -- Date INR Dose Received 12/28 2.7 2 mg 12/29 2.9 2 mg x 1 12/30 2.9 1.5 mg 12/31 2.4 2 mg Drug interactions: Potential to increase INR: cefepime (12/28-), ropinirole ([employer] REP) Potential to decrease INR: Spironolactone, Trazodone (12/28 PRN Potential to increase the risk of bleeding: aspirin (on a PPI), sertraline Warfarin Sensitivity: high, based on the following risk factors: HF exacerbation, concomitant antiplatelet therapy, age 66-79, 1 moderate drug interaction, and diagnosis of heart failure. Hgb/Hct today are stable INR today is Therapeutic The plan is to give a 2 mg dose once tonight and recheck an INR in the morning to assist with subsequent dosing. Pharmacy will continue to monitor labs and notes daily, adjusting the dose as clinically appropriate. Thank you for the consult. Pharmacy to dose per Dr. Virgil RYDER, PharmD Phone number: [phone] 12/31/2022 10:49 AM * Aaliyah CastroD - 12/31/2022 10:46 AM CDT Vancomycin Pharmacokinetic Progress Note Day 3 of therapy Obie Sims is a 67-year-old male for which pharmacy has been consulted to dose vancomycin for Skin/Soft Tissue Infection . Other antibiotics ordered include cefepime 2 gm Q12H (12/28-) Historical vancomycin use: none Allergies: No Known Allergies Height: 5' 6 (1.676 m) Weight: 103.8 kg (228 lb 14.4 oz) Body mass index is 36.95 kg/m??. Temp (24 hr max): Temp Av.5 ??F (36.4 ??C) Min: 97.3 ??F (36.3 ??C) Max: 97.5 ??F (36.4 ??C) Today's labs and vitals: Lab Results Component Value Date/Time WBC 7.90 12/31/2022 05:28 AM WBC 8.66 12/30/2022 10:34 AM WBC 8.73 12/29/2022 04:03 AM WBC 10.68 12/28/2022 12:17 PM WBC 7.17 12/24/2022 03:05 PM Lab Results Component Value Date/Time CR 2.15 (H) 12/31/2022 05:28 AM CR 1.98 (H) 12/30/2022 10:34 AM CR 2.06 (H) 12/29/2022 04:03 AM CR 2.26 (H) 12/28/2022 12:17 PM CR 2.35 (H) 12/24/2022 03:05 PM CrCl = estimated creatinine clearance is 37.1 mL/min (A) (based on SCr of 2.15 mg/dL (H)). Intake/Output Summary (Last 24 hours) at 12/31/2022 1046 Last data filed at 12/31/2022 0100 Gross per 24 hour Intake 800 ml Output 2400 ml Net -1600 ml Pertinent Cultures: Date Drawn Site Organism Pertinent Sensitivity 12/28 BCx NGTD 12/28 Sputum Sent 12/29 Urine NGTD Levels: Date Time Level AUC Dose Comments 12/30 0501 23.7 537 2000 mg x1, 1000 mg q 24h x 1 15 hrs Assessment: Obie Sims is a 67-year-old male who is currently receiving vancomycin. AUC goal is 400 - 600 Current AUC level is Therapeutic Renal function is Improving Plan: Antibiotic Plan: 750 mg every 24 hours; est AUC 505 Next level due: 01/01 1400 Due at 2100 Pharmacy will continue to follow cultures, clinical status, and appropriateness of therapy. Thank you for the consult. Pharmacy Consult per Dr. Virgil RYDER PharmRandy Phone: [phone] 12/31/2022 10:46 AM * Zayra Martínez RN - 12/31/2022 9:42 AM CDT Pt/ot= swing bed, will discuss this with the pt and send referrals and do PASRR if needed. 12/31/22 0942 Interdisciplinary Group Conference Team Members Present Physician Barriers to Discharge Barriers Not Medically ready Not Medically ready follow up diuresing. * Roland Longoria RN - 12/31/2022 1:08 AM CDT Problem: Tissue Perfusion - Cardiopulmonary, Altered Goal: Absence of chest pain Outcome: Progressing Problem: Fluid Volume - Excess Goal: Absence of fluid overload signs and symptoms Outcome: Progressing Goal: Electrolytes within specified parameters Outcome: Progressing Problem: Activity Intolerance Goal: Improved activity tolerance Outcome: Progressing Problem: Venous Thromboembolism - Risk of Goal: Absence of venous thromboembolism Outcome: Progressing Problem: Reduced risk for falls/injury Goal: Reduced Risk for Falls/Injury Outcome: Progressing Problem: Skin integrity, Impaired-wound Goal: Absence of new skin breakdown Outcome: Progressing Goal: Evidence of wound healing Outcome: Progressing Problem: Mobility - Impaired Goal: Able to use ambulatory assistive device appropriately Outcome: Progressing Goal: Knowledge of need for increased mobility Outcome: Progressing Problem: Gas Exchange - Impaired Goal: Absence of cyanosis signs and symptoms Outcome: Progressing Goal: Pulse oximetry within specified parameters Outcome: Progressing Problem: Pain [...] plans and interventions as needed. Outcome: Progressing * Keren Mann RN - 12/30/2022 2:58 PM CDT 12/30/22 1107 Interdisciplinary Group Conference Team Members Present Physician;Case/Care management Physician present for group conference Dr. Pandey Barriers to Discharge Barriers Not Medically ready Not Medically ready follow up montior few more days,pt was to have outpt ortho spine surgery Wednesday(unsure if that needs to be cancelled). therapy eval pending * Xiomy Vargas RN-LP - 12/30/2022 2:26 PM CDT Problem: Pain Goal: Patient's pain/discomfort [...] and interventions as needed. Outcome: Progressing Problem: Venous Thromboembolism - Risk of Goal: Absence of venous thromboembolism Outcome: Progressing Problem: Mobility - Impaired Goal: Able to use ambulatory assistive device appropriately Outcome: Progressing Goal: Knowledge of need for increased mobility Outcome: Progressing Problem: Gas Exchange - Impaired Goal: Absence of cyanosis signs and symptoms Outcome: Progressing Goal: Pulse oximetry within specified parameters Outcome: Progressing Problem: Discharge Planning Goal: Knowledge [...] of new skin breakdown Outcome: Progressing Problem: Discharge Planning Goal: Knowledge of discharge instructions Outcome: Progressing Problem: Activity Intolerance Goal: Improved activity tolerance Outcome: Progressing Problem: Fluid Volume - Excess Goal: Absence of fluid overload signs and symptoms Outcome: Progressing Goal: Electrolytes within specified parameters Outcome: Progressing Problem: Reduced risk for falls/injury Goal: Reduced Risk for Falls/Injury Outcome: Progressing Goal: Reduced Risk of Confusion (Acute vs Chronic) Outcome: Progressing Goal: Reduced Risk of Symptomatic Depression Outcome: Progressing Goal: Reduced Risk of Altered Elimination Outcome: Progressing Goal: Reduced Risk of Dizziness/Vertigo/Balance Outcome: Progressing Goal: Reduced Risk of Polypharmacy Outcome: Progressing Problem: Skin integrity, at risk Goal: Absence of new skin breakdown Outcome: Progressing Problem: Activity Intolerance Goal: Improved activity tolerance Outcome: Progressing Goal: Able to participate in acute rehabilitation Outcome: Progressing Goal: Able to perform prescribed physical activity Outcome: Progressing Problem: Tissue Perfusion - Cardiopulmonary, Altered Goal: Absence of chest pain Outcome: Progressing Problem: Venous Thromboembolism - Risk of Goal: Absence of venous thromboembolism Outcome: Progressing * James Esposito, PT - 12/30/2022 2:12 PM CDT PT Initial Evaluation Discharge Recommendation: Swing bed unit Activity Recommendation for exploration geologist: assist of 1, 2ww, GB, up for meals, amb with staff toxicologist 12/30/22 0600 Therapy Visit Ordering Provider Juanpablo Pandey MD PT Received On 12/30/22 Subjective RN gave ok prior to therapy evaluations. Pt agreeable to therapy evaluations and provided PLOF information. Reason for admission Pt admission with hx of SOB, LE edema, abdominal swelling, and poor PO intake,concern for CHF exac/ vol overload, imaging showing sigmoid volvulus, no surgical intervention recommended at this time per surgery team, PMHx: C3,4 disc herniation per pt report, pt awaiting surgery, CAD, RLE cellulitis, COPD, s/p AVR, DM2, afib, CHF, severe pulmonary HTN, CKD stage III, CVA, lipoma, HTN, HLD, recent ankle fracture , order: eval/ treat, fall precautions, up with assist Verified Two Patient Identifiers Yes Patient consents to therapy Yes Precautions General Precautions Bed Alarm;Chair Alarm Other telemetry , 2L O2 hifloNC (not donned upon PT entry) Home Living Home Living Comments Pt lives [...] of all IADLs. Pt was ambulating with wh/walker in the house and cane when he would go out of the home. Pt reports 3 falls due to LE weakness/unsteadiness. DME: power recliner, cane, ww, riser Pain Pain Yes Pain Score 10 (pt does not appear to be in distress, RN present to admin meds) Location chronic neck pain Interventions Informed RN;Re-direction;Re-positioning Activity Tolerance Endurance Quality Fair Limiting Factors to Endurance Acute deconditioning;Fatigue;Pain;Weakness Vision - Basic Assessment Patient Visual Report (no changes in vision) Vision - Complex Assessment Acuity Able to read clock/calendar on wall without difficulty Cognition Overall Cognitive Status WFL Arousal/Alertness Appropriate responses to stimuli Attention Span Appears intact Memory Appears intact Orientation Level Oriented X4 Following Commands Follows all commands and directions without difficulty Safety Judgment Decreased awareness of need for assistance Awareness of Errors Good awareness of errors made Deficits Fully aware of deficits Problem Solving Able to problem solve independently Motor Planning Appears intact Perseveration Not present Sensation Light Touch Partial deficits in the LLE (tingling LLE , pt attributes tingling to hx of edema) Overall Extremity Assessment Lower Extremity AROM WFL, MMT </=3+/5 gross BLE Bed Mobility Supine to Sit HETAL (pt received in a recliner) TRANSFERS Stand Pivot Transfers Contact guard assist (vc for hand/ foot place and trunk positioning) Sit to Stand Contact guard assist Gait Gait Assistance Contact guard assist;With gait belt Assistive Device 2 Wheeled walker Distance Ambulated (ft) 125 ft Pattern WFL Other (Comment) no LOB Stairs Stair Management Assistance HETAL Balance Sitting - Static SBA Sitting - Dynamic SBA Standing - Static CGA Standing - Dynamic CGA Assessment Personal Factors/Comorbidities Impacting Care 3-4 personal factors/comorbidities Examination of Body Systems Moderate (3 or more Elements) Objectives of Body Systems Impaired transfers;Impaired ambulation;Impaired balance;Impaired respiratory function;Decreased ADL status;Decreased LE strength;Decreased safe judgement;Decreased endurance;Decreased high-level ADLs;Pain with mobility Clinical Presentation of Patient Unpredictable and unstable characteristics Complexity Level of Evaluation High Prognosis Fair Recommendation PT Recommendation Swing bed unit PT Equipment Recommended To Be Determined Plan PT Treatments/Interventions Gait Training;Therapeutic Exercises;Therapeutic Activities;Neuromuscular re-education Progress Slow progress, medical status limitations PT Frequency 5 times/week PT - Next Appointment 12/30/22 If this is the last treatment note,it will serve as the discharge summary Yes End of Session End of Session Safety Call light within reach;Nursing aware of session;Transfer status education;Chair alarm set/activated Education: Primary Learners Name: Obie Sims Primary Language of learner: Moldovan Patient was educated on precautions exercises transfers ADLs balance equipment therapy plan gait safety energy conservation adaptive skills edema management. Education was completed one to one verbal hands-on demonstration this date. Preference of learning new concepts one to one verbal hands-on demonstration Barriers to education this date were pain fatigue physical impairment. Response to education this date demos with verbal cues needs reinforcement needs follow up needs assistance. The below POC to be followed until 01/21/23 at that time POC will be re-assessed to ensure patient ismaking appropriate progression. Pt. will be able to perform supine to/from sitting at EOB with Modified [place] to improve mobility. Pt. will be able to perform sit to/from standing with Modified [place] using wheeled walker toimprove independence. Pt. will be able to ambulate 225 feet with SBA using wheeled walker to help improve strength and functional independence. Pt. will be able to maintain static sitting balance for 5-10 minutes with Modified [place] to improve independence. Pt. will be able to maintain dynamic sitting balance on soft surface with Modified [place] to improve functional mobility. Pt. will be able to maintain static standing balance 5-10 minutes with Modified [place] using wheeled walker to improve independence. Pt. will be able to maintain dynamic standing balance during side-stepping L/R and marching with Modified [place] using wheeled walker to improve functional mobility. Pt. will be able to ascend/descend 2-3 steps with SBA using handrail(s) to increase strength and tosafely access home at D/C. * Rylie Oh, PharmD - 12/30/2022 12:22 PM CDT Vancomycin Pharmacokinetic Progress Note Day 2 of therapy Obie Sims is a 67-year-old male for which pharmacy has been consulted to dose vancomycin for Skin/Soft Tissue Infection . Other antibiotics ordered include cefepime 2 gm Q12H (12/28-) Historical vancomycin use: none Allergies: No Known Allergies Height: 5' 6 (1.676 m) Weight: 103.8 kg (228 lb 14.4 oz) Body mass index is 36.95 kg/m??. Temp (24 hr max): Temp Av.7 ??F (36.5 ??C) Min: 97.5 ??F (36.4 ??C) Max: 98.1 ??F (36.7 ??C) Today's labs and vitals: Lab Results Component Value Date/Time WBC 8.66 12/30/2022 10:34 AM WBC 8.73 12/29/2022 04:03 AM WBC 10.68 12/28/2022 12:17 PM WBC 7.17 12/24/2022 03:05 PM WBC 9.6 02/04/2022 04:53 AM Lab Results Component Value Date/Time CR 1.98 (H) 12/30/2022 10:34 AM CR 2.06 (H) 12/29/2022 04:03 AM CR 2.26 (H) 12/28/2022 12:17 PM CR 2.35 (H) 12/24/2022 03:05 PM CR 1.69 (H) 11/09/2022 12:11 PM CrCl = estimated creatinine clearance is 40.3 mL/min (A) (based on SCr of 1.98 mg/dL (H)). Intake/Output Summary (Last 24 hours) at 12/30/2022 1222 Last data filed at 12/30/2022 1000 Gross per 24 hour Intake 100 ml Output 1200 ml Net -1100 ml Pertinent Cultures: Date Drawn Site Organism Pertinent Sensitivity 12/28 BCx NGTD 12/28 Sputum Sent 12/29 Urine NGTD Levels: Date Time Level AUC Dose Comments 12/30 0501 23.7 537 2gm x 1 then 1 gm Q24H x 1 15 hrs Assessment: Obie Sims is a 67-year-old male who is currently receiving vancomycin. AUC goal is 400 - 600 Current AUC level is Therapeutic Renal function is Improving Plan: Antibiotic Plan: Decrease to 750 mg (7.2 mg/kg) Q24H est AUC 505 (However suspected LVL was off projected) Next level due: 01/01 1400 Due at 2100 Pharmacy will continue to follow cultures, clinical status, and appropriateness of therapy. Thank you for the consult. Pharmacy Consult per Dr. Virgil Oh, PharmD Phone: [phone] 12/30/2022 12:22 PM * Rylie Oh PharmD - 12/30/2022 12:16 PM CDT Warfarin - Pharmacy Dosing Service [...] (CMS/HCC) CHF (congestive heart failure) (CMS/HCC) Claudication ([facility]/HCC) COPD (chronic obstructive pulmonary disease) ([facility]/HCC) Coronary artery disease Diabetes mellitus, type II (CMS/HCC) Edema 04/19/2018 2+ pitting History of blood transfusion Hyperlipidemia Hypertension LV dysfunction Osteoarthritis PAD (peripheral artery disease) (CMS/HCC) Pneumonia Restless leg syndrome S/P aortic valve replacement with bioprosthetic valve 2013 SOB (shortness of breath) Stroke ([facility]/HCC) Varicose veins of bilateral lower extremities with other complications Weight gain with edema Home warfarin dose: 3 mg daily previously confirmed with patient Past admission was on 5.5 mg Daily Bridging agent: none Vitamin K use: No Diet: PO Recent Labs Lab 12/28/22 1217 12/29/22 0403 12/30/22 1034 HGB 9.1* 8.4* 8.6* HCT 31.7* 29.0* 30.3* PLT 201 174 174 AST 31 -- -- ALT 24 -- -- ALKP 133* -- -- ALB 3.3* -- -- Date INR Dose Received 12/28 2.7 2 mg 12/29 2.9 2 mg x 1 12/30 2.9 Drug interactions: Potential to increase INR: cefepime (12/28-), ropinirole ([employer]P) Potential to decrease INR: Spironolactone, Trazodone (12/28 PRN Potential to increase the risk of bleeding: aspirin (on a PPI), sertraline Warfarin Sensitivity: high, based on the following risk factors: HF exacerbation, concomitant antiplatelet therapy, age 66-79, 1 moderate drug interaction, and diagnosis of heart failure. Hgb/Hct today are stable INR today is Therapeutic The plan is to give a 1.5 mg dose once tonight and recheck an INR in the morning to assist with subsequent dosing. Pharmacy will continue to monitor labs and notes daily, adjusting the dose as clinically appropriate. Thank you for the consult. Pharmacy to dose per Dr. Virgil Oh, PharmD Phone number: [phone] 12/30/2022 12:16 PM * Juanpablo Pandey MD - 12/30/2022 11:33 AM CDT Progress note Chief complaint: CHF, cellulitis Subjective Patient seen and examined. Patient sitting in chair. Reports shortness of breath improving denies any complaints of fever, chills Reports neck pain, back pain Review of Systems All other systems reviewed and are negative. OBJECTIVE Patient Vitals for the past 24 hrs: BP Temp Temp src Pulse Resp SpO2 12/30/22 0834 93/63 97.5 ??F (36.4 ??C) Oral 77 19 97 % 12/30/22 0510 125/62 97.5 ??F (36.4 ??C) -- 84 -- 93 % 12/29/22 1952 121/61 98.1 ??F (36.7 ??C) -- 89 -- 100 % Physical Exam Constitutional: Appearance: He is well-developed. HENT: Head: Normocephalic and atraumatic. Eyes: Pupils: Pupils are equal, round, and reactive to light. Cardiovascular: Rate and Rhythm: Normal rate and regular rhythm. Heart sounds: No murmur heard. No friction rub. Pulmonary: Effort: No respiratory distress. Breath sounds: No wheezing or rales. Chest: Chest wall: No tenderness. Abdominal: General: Bowel sounds are normal. There is distension. Palpations: Abdomen is soft. Tenderness: There is no abdominal tenderness. There is no guarding or rebound. Musculoskeletal: General: Swelling present. Normal range of motion. Cervical back: Normal range of motion and neck supple. Skin: General: Skin is warm and dry. Findings: No rash. Comments: Lower extremity edema. Bilateral stasis dermatitis changes, right lower extremity ulceration/dressed pleasant Neurological: Mental Status: He is alert and oriented to person, place, and time. LABS:. Recent Labs 12/28/227 12/29/22 0403 12/30/22 1034 WBC 10.68 8.73 8.66 HGB 9.1* 8.4* 8.6* HCT 31.7* 29.0* 30.3* MCV 80.3 79.7 82.8 PLT 201 174 174 RBC 3.95* 3.64* 3.66* Recent Labs Lab 12/24/22 1505 12/28/227 12/29/22 0403 12/30/22 1034 NA 136 135* 134* 131* K 5.0 4.9 4.6 4.2 CL 100 101 102 101 CO2 26.7 28.1 24.4 23.9 AGAP 9.3 5.9 7.6 6.1 BUN 38* 35* 34* 34* CR 2.35* 2.26* 2.06* 1.98* GLU 99 115* 59* 125* CA 9.3 9.6 9.3 9.2 TP -- 8.3* -- -- ALB 3.1* 3.3* -- -- TBIL -- 1.0 -- -- ALKP -- 133* -- -- AST -- 31 -- -- ALT -- 24 -- -- Intake/Output Summary (Last 24 hours) at 12/30/2022 1133 Last data filed at 12/30/2022 1000 Gross per 24 hour Intake 400 ml Output 1600 ml Net -1200 ml RADIOLOGY : REVIEWED MEDICATIONS Scheduled medications amLODIPine 2.5 mg Oral Daily aspirin 81 mg Oral Daily atorvastatin 80 mg Oral Nightly at bedtime carvedilol 3.125 mg Oral BID cefepime 2 g Intravenous Q12H ipratropium-albuterol 3 mL Nebulization 2 times daily And fluticasone propionate 1 puff Inhalation 2 times daily furosemide 60 mg Intravenous BID gabapentin 300 mg Oral Daily gabapentin 600 mg Oral Nightly at bedtime insulin lispro 0-8 Units Subcutaneous 4x Daily AC and at bedtime nystatin Topical BID pantoprazole EC 40 mg Oral Daily rOPINIRole 4 mg Oral Nightly at bedtime sertraline 50 mg Oral Daily spironolactone 25 mg Oral Daily vancomycin 1,000 mg Intravenous Q24H vancomycin pharmacy to dose Intravenous See Admin Instructions warfarin (COUMADIN) pharmacy to dose Oral See Admin Instructions Infusion PRN acetaminophen, albuterol sulfate HFA, dextrose 10 % bolus, glucagon, glucose, HYDROcodone-acetaminophen, melatonin, morphine, ondansetron, polyethylene glycol, traZODone ASSESSMENT /PLAN CHF (congestive heart failure) ([facility]) Acute on chronic systolic/diastolic heart failure Aortic stenosis s/p MVR in 1999 & bioprosthetic valve (2013) Severe pulm hypertension Coronary artery disease Admitted with increased shortness of breath noted to have elevated BNP Continue IV Lasix- Cardiology consulted. Appreciate cardiology input Continue home medications Monitor input output, daily weights, renal functions closely Echocardiogram ordered-follow results Monitor on telemetry Right lower extremity cellulitis Chronic superficial ulceration of right lower extremity Patient started on a broad-spectrum antibiotics Follow cultures Wound care consultation. Appreciate wound care input History of atrial fibrillation Continue rate limiting medications Patient on warfarin continue Acute on chronic kidney disease stage III Baseline creatinine around 1.6-1.[address] abdomen noncontrast ordered we will follow results Diabetes mellitus Hold oral agents Start on sliding scale insulin Monitor blood glucose ACHS Abdominal distention/? Sigmoid volvulus CT abdomen pelvis concerning for sigmoid volvulus Colorectal surgery consulted, appreciate recommendations No symptoms of abdominal pain. Per colorectal surgery can advance diet Surgery signed off Chronic neck pain Plan to undergo cervical surgery as an outpatient basis Continue home medications, pain control Will notify Dr. Pond. Patient wants to see if he can have a surgery during his hospitalization will notify surgery team DVT prophylaxis; patient already on anticoagulation therapy Code status: Full Code JUANPABLO PANDEY MD * Oneyda Rand OT - 12/30/2022 9:15 AM CDTSummary: OT Eval OT Initial Evaluation Discharge Recommendation: Swing bed unit Activity Recommendation for exploration geologist: up to chair for all meals, walking into the bathroom with CGAusing the WW 12/30/22 0900 Therapy Visit OT Received On 12/30/22 Reason for admission Pt admission with hx of SOB, LE edema, abdominal swelling, and poor PO intake,concern for CHF exac/ vol overload, imaging showing sigmoid volvulus, no surgical intervention recommended at this time per surgery team, PMHx: C3,4 disc herniation per pt report, pt awaiting surgery, CAD, RLE cellulitis, COPD, s/p AVR, DM2, afib, CHF, severe pulmonary HTN, CKD stage III, CVA, lipoma, HTN, HLD, recent ankle fracture , order: eval/ treat, fall precautions, up with assist Ordering Provider Juanpablo Pandey MD Verified Two Patient Identifiers Yes Patient consents to therapy Yes Acute Inpatient OT Time Calculation OT Start Time 914 OT Stop Time 931 OT Time Calculation (min) 17 min Precautions General Precautions Bed Alarm;Chair Alarm Other telemetry Subjective Subjective RN gave ok prior to therapy evaluations. Pt agreeable to therapy evaluations and provided PLOF information. Home Living Home Living Comments Pt lives with his daughter and her family in a one story house with a basement. Pt has 2-3 YANG with handrail. Pt reports he lives in the basement and has a chair lift to the basement. Pt has a walk-in shower with seat and grab bars and standard toilet with riser with arms. Pt needs some help with dressing and bathing. Pt's daughter takes care of all IADLs. Pt was ambulating with wh/walker in the house and cane when he would go out of the home. Pt reports 3 falls due to LE weakness/unsteadiness. Pain Pain Yes Pain Score 10 Location chronic neck pain Interventions Informed RN;Re-direction;Re-positioning Objective Objective Pt seen in room 484. Pt up in chair upon ent. Gait belt and WW used for all functional mobility. Pt up in chair with call light nearby and chair alarm on upon ext. Activity Tolerance Endurance Quality Fair Limiting Factors to Endurance Acute deconditioning;Fatigue;Pain;Weakness Vision - Basic Assessment Current Vision No visual deficits Vision - Complex Assessment Additional Comments No new visual deficits reported. Pt able to read clock without difficulty. Cognition Overall Cognitive Status WFL Arousal/Alertness Appropriate responses to stimuli Attention Span Appears intact Memory Appears intact Orientation Level Oriented X4 Following Commands Follows all commands and directions without difficulty Safety Judgment Decreased awareness of need for assistance Awareness of Errors Assistance required to identify errors made Deficits Fully aware of deficits Problem Solving Assistance required to identify errors made Comments Pt alert and oriented. Pt pleasant and cooperative overall. Pt requires minimal encouragement throughout. Pt slightly perseverating on his neck surgery that he needs. Pt requires increased cueing for safety with the WW. Overall Extremity Assessment Upper Extremity Weakness B UEs, approx 4-/5 throughout. Decreased B shoulder ROM, approx 100 degrees Hand Function Hand Dominance Right Gross Grasp Functional Coordination Functional Sensation Additional Comments tingling L LE from edema ADL Eating/Feeding Assistance Stand by;Sitting in chair Eating/Feeding Deficit Setup Grooming Assistance Stand by;Sitting in chair Grooming Deficit Setup;Wash/dry face LE Dressing Assistance Moderate;Sitting in chair LE Dressing Comment Pt able to place his R LE into figure 4 position to pull his sock up. Unable tolift L LE into figure 4 position, requiring assistance. Bed Mobility Other (Comment) Pt up in chair upon ent. Functional Transfers Sit to Stand Min assist Functional Mobility Pt completed sit>stand from chair with min asisst. Pt completed functional room/hallway mobility with CGA using the WW. Pt unsteady throughout, but no LOB. Minimal VCs for bodypositioning with the WW. Balance Sitting - Static SBA Sitting - Dynamic SBA Standing - Static CGA Standing - Dynamic CGA;Support of both upper extremities Assessment Occupational Profile and History Complexity Moderate (Expanded) Performance Skills Deficits Bathing/showering;Dressing;Functional mobility;Personal hygiene and grooming;Safety and emergency maintenance;Toileting Performance Deficit Level Moderate (3-5 deficits) Clinical Decision Making Moderate (min/mod modifications) Complexity Level of Evaluation Moderate Prognosis Good OT Assess/Eval Other (Comment) Pt is a 67 year old male admitted with CHF exacerbation, volume overload and LE edema. OT evaluation completed 12/30. Pt presents with generalized weakness, fatigue, decreased balance, acute on chronic deconditoning, decreased endurance and activity tolerance, and painimpacting his ability to complete ADLs and functional mobility at baseline. Pt would benefit from skilled OT to address above. Pt would benefit from rehab placement upon discharge. Will continue to assess pending progress, as pt may be able to return home pending improvement. Recommendation OT Recommendation Swing bed unit Plan OT Treatment/Intervention Self-care training;Therapeutic exercises;Therapeutic activities;Patient/family training;Functional activity;Safety OT Frequency 5 times/week OT - Next Appointment 12/30/22 If this is the last treatment note, it will serve as the discharge summary Yes End of Session End of Session Safety Chair alarm set/activated;Call light within reach;Nursing aware of session;Transfer status education Education: Primary Learners Name: Obie Sims Primary Language of learner: Moldovan Patient was educated on precautions transfers ADLs balance bed mobility therapy plan safety energy conservation adaptive skills. Education was completed verbal this date. Preference of learning new concepts verbal Barriers to education this date were none. Response to education this date verbalized understanding needs reinforcement. OT POC Start. 12/30/22 End: 01/13/23 Pt will complete dressing with Minimal assistance sitting EOB or in chair to increase safety and independence with ADLs. Pt will complete all grooming and self-feeding with Modified [place] to increased safety and independence with ADLs. Pt will complete ADLs at sink with Modified [place] to increase independence with ADLs. Pt will complete toileting hygiene and clothing management with Modified [place] to increase safety and independence with ADLs. Pt to complete bathing with Minimal assistance seated in chair/EOB to increase independence with ADLs. Pt will complete bed mobility with Modified [place] with HOB flat to increase safety and independence with functional transfers. Pt will complete transfers all surfaces to/from all surfaces with Modified [place] using wheeled walker to increase functional mobility and transfers. Pt will participate within skilled therapy services for 20-30 minutes with 1-2 rest breaks to increase independence with ADLs and functional transfers. Pt will increase dynamic standing balance standing at sink/dressing completing ADLs with Modified [place] with wheeled walker for 10-20 minutes to increase safety and independence with ADLs and functional transfers. Pt to increase B UE MMT to increase strength, safety and independence with ADLs and functional transfers. By: MIKE Howard, OTR/L; 12/30/22 * Amauri Pandey MD - 12/30/2022 8:18 AM CDT Chart reviewed. ?? CHF (systolic/diastolic)??-- acute on chronic. RLE ulceration/cellulitis Aortic stenosis -- S/P AVR (2000) and bioprosthesis (2013). Severe pulmonary HTN CAD Hx of atrial fibrillation -- S/P ablation. ALICIA on CKD Carotid artery disease COPD HTN Hyperlipidemia Diabetes mellitus -- type II. Anxiety ?? Rhythm: Afib BP 125/62 mmHg. I/Os 400cc/1200cc yesterday. Labs: CT scan (Abd/pelvis): Sigmoid volvulus, Small ascites/anasarca. Echo (12/29/22): TDS. LVH/LVEF 37%, RV enlarged with reduced function, bioprosthetic aortic valve functioning well with mean gradient of 16 mmHg and no AI. ?? Physical Exam Vitals reviewed. ?? Constitutional:??No distress.??Examined in bed. Neck:??Neck supple.?No JVD. ?? CV: Irregular rhythm. No rub. Pedal pulses 1+ bilaterally. Abdomen:??Abdomen soft.??Bowel sounds normal.?Distension.??No tenderness.??No abdominal bruit present. ?? Pulmonary:??Breath sounds normal.?Increased effort. ?? Skin:??Warm and dry.?No rash.??No jaundice.??No cyanosis.??No clubbing.??No xanthoma.?Dry flaky skin.?. Musculoskeletal:??No kyphosis.??Normal ROM.? Neurological:??Alert.??Oriented x 3.??Appropriate mood and affect. ? Comments:??+2 BLE edema with abdominal tightness. ??BLE erythematous with scabs and scaling. ?? Surgical consultation for sigmoid volvulus noted. Ascites/anasarca secondary to right heart failure/pulmonary hypertension. Will continue attempts at diuresis and maximizing GDMT for CHF while following renal function closely. Will adjust meds as BP allows. Antibiotics continue for LE ulcerations/cellulitis. ? I spent 35 minutes reviewing the chart, taking the history, examining the patient, and documenting in the chart. ? * Irving Bhatti MD - 12/30/2022 6:26 AM CDT ASSESSMENT/PLAN: Patient is a 67-year-old male with multiple severe medical comorbidities admitted for CHF exacerbation. Colorectal surgery consulted for CT findings of sigmoid volvulus. Likely a chronic or transientfinding given that he denies any abdominal pain and has been having bowel function. - No plans for surgical intervention at this time - Tolerating general diet - CRS will sign-off. Please call if any new abdominal pain, distention or change in his clinical course - Would require at least a colonoscopic detorsion and rectal tube placement if he develops symptoms Staff: Dr. Orlando Bhatti MD RES SUBJECTIVE: No acute events reported overnight. Denies any abdominal pain, nausea, or vomiting. Reports passingsignificant amounts of flatus. Abdominal distention at baseline per patient. Complains of continuedneck pain OBJECTIVE: Filed Vitals: 12/29/22 0500 12/29/22 0755 12/29/22 1952 12/30/22 0510 BP: 116/53 121/61 125/62 Pulse: 90 89 84 Resp: 21 Temp: 98.1 ??F (36.7 ??C) 97.5 ??F (36.4 ??C) TempSrc: SpO2: 98% 100% 93% Weight: 103.8 kg (228 lb 14.4 oz) Height: I/O last 3 completed shifts: In: 300 [P.O.:300] Out: 1000 [Urine:1000] Physical Examination: GEN: Lying in hospital bed. No acute distress. HEENT: NC/AT. No scleral icterus. No JVD noted. CV: Regular rate, no tachycardia. RESP: Airway patent. No increased respiratory effort. ABD: Soft, minimally distended, no tympany to percussion. Nontender EXT: No cyanosis or edema Cosigned by Taye Perry MD at 12/30/2022 1:59 PM CDT * Chitra Beach RN - 12/30/2022 3:03 AM CDT Problem: Pain Goal: Patient's pain/discomfort is [...] and interventions as needed. Outcome: Progressing Problem: Venous Thromboembolism - Risk of Goal: Absence of venous thromboembolism Outcome: Progressing Problem: Mobility - Impaired Goal: Able to use ambulatory assistive device appropriately Outcome: Progressing Goal: Knowledge of need for increased mobility Outcome: Progressing Problem: Gas Exchange - Impaired Goal: Absence of cyanosis signs and symptoms Outcome: Progressing Goal: Pulse oximetry within specified parameters Outcome: Progressing Problem: Discharge Planning Goal: Knowledge [...] of new skin breakdown Outcome: Progressing Problem: Discharge Planning Goal: Knowledge of discharge instructions Outcome: Progressing Problem: Activity Intolerance Goal: Improved activity tolerance Outcome: Progressing Problem: Fluid Volume - Excess Goal: Absence of fluid overload signs and symptoms Outcome: Progressing Goal: Electrolytes within specified parameters Outcome: Progressing Problem: Reduced risk for falls/injury Goal: Reduced Risk for Falls/Injury Outcome: Progressing Goal: Reduced Risk of Confusion (Acute vs Chronic) Outcome: Progressing Goal: Reduced Risk of Symptomatic Depression Outcome: Progressing Goal: Reduced Risk of Altered Elimination Outcome: Progressing Goal: Reduced Risk of Dizziness/Vertigo/Balance Outcome: Progressing Goal: Reduced Risk of Polypharmacy Outcome: Progressing Problem: Skin integrity, at risk Goal: Absence of new skin breakdown Outcome: Progressing Problem: Activity Intolerance Goal: Improved activity tolerance Outcome: Progressing Goal: Able to participate in acute rehabilitation Outcome: Progressing Goal: Able to perform prescribed physical activity Outcome: Progressing Problem: Tissue Perfusion - Cardiopulmonary, Altered Goal: Absence of chest pain Outcome: Progressing Problem: Venous Thromboembolism - Risk of Goal: Absence of venous thromboembolism Outcome: Progressing * Rylie Oh PharmD - 12/29/2022 12:36 PM CDT Vancomycin Pharmacokinetic Progress Note Day 1 of therapy Obie Sims is a 67-year-old male for which pharmacy has been consulted to dose vancomycin for Skin/Soft Tissue Infection . Other antibiotics ordered include cefepime 2 gm Q12H (12/28-) Historical vancomycin use: none Allergies: No Known Allergies Height: 5' 6 (1.676 m) Weight: 103.8 kg (228 lb 14.4 oz) Body mass index is 36.95 kg/m??. Temp (24 hr max): Temp Av.1 ??F (36.7 ??C) Min: 97.9 ??F (36.6 ??C) Max: 98.2 ??F (36.8 ??C) Today's labs and vitals: Lab Results Component Value Date/Time WBC 8.73 12/29/2022 04:03 AM WBC 10.68 12/28/2022 12:17 PM WBC 7.17 12/24/2022 03:05 PM WBC 9.6 02/04/2022 04:53 AM WBC 10.7 02/03/2022 04:35 AM Lab Results Component Value Date/Time CR 2.06 (H) 12/29/2022 04:03 AM CR 2.26 (H) 12/28/2022 12:17 PM CR 2.35 (H) 12/24/2022 03:05 PM CR 1.69 (H) 11/09/2022 12:11 PM CR 1.28 02/04/2022 04:53 AM CrCl = estimated creatinine clearance is 38.7 mL/min (A) (based on SCr of 2.06 mg/dL (H)). Intake/Output Summary (Last 24 hours) at 12/29/2022 1236 Last data filed at 12/29/2022 1200 Gross per 24 hour Intake 600 ml Output 1000 ml Net -400 ml Pertinent Cultures: Date Drawn Site Organism Pertinent Sensitivity 12/28 UCx Sent 12/28 BCx In process 12/28 Sputum Sent Levels: Date Time Level AUC Dose Comments 12/30 2gm x 1 then 1 gm Q24H Assessment: Obie Sims is a 67-year-old male who is currently receiving vancomycin. AUC goal is 400 - 600 Current AUC level is Pending Renal function is Improving Plan: Antibiotic Plan: vancomycin 2000 mg once followed by 1000 mg every 24 hours; projected AUC of 580 Next level due: 12/30 with AM labs dose due at 1400 Pharmacy will continue to follow cultures, clinical status, and appropriateness of therapy. Thank you for the consult. Pharmacy Consult per Dr. Virgil Oh, PharmD Phone: [phone] 12/29/2022 12:36 PM * Rylie Oh PharmD - 12/29/2022 12:32 PM CDT Warfarin - Pharmacy Dosing Service Note Obie Sims is a 67-year-old male for which pharmacy has been consulted to dose warfarin for A.fib. Goal INR is 2-3. Warfarin Order Set Activated: Yes Warfarin Start Date: continuation from home Past Medical History: Diagnosis Date Abnormal ankle brachial index (STELLA) Acute on chronic heart failure, unspecified heart failure type ([facility]) Anxiety Aortic valve stenosis Arthritis Asthma, mild persistent 04/06/2021 Atrial fibrillation ([facility]) s/p PVI/[facility] 10/2015 Bilateral leg pain Carotid disease, bilateral ([facility]) CHF (congestive heart failure) ([facility]) Claudication ([facility]) COPD (chronic obstructive pulmonary disease) ([facility]) Coronary artery disease Diabetes mellitus, type II ([facility]) Edema 04/19/2018 2+ pitting History of blood transfusion Hyperlipidemia Hypertension LV dysfunction Osteoarthritis PAD (peripheral artery disease) ([facility]) Pneumonia Restless leg syndrome S/P aortic valve replacement with bioprosthetic valve 2013 SOB (shortness of breath) Stroke ([facility]) Varicose veins of bilateral lower extremities with other complications Weight gain with edema Home warfarin dose: 3 mg daily previously confirmed with patient Past admission was on 5.5 mg Daily Bridging agent: none Vitamin K use: No Diet: PO Recent Labs Lab 12/24/22 1505 12/28/22 1217 12/29/22 0403 HGB 8.6* 9.1* 8.4* HCT 29.1* 31.7* 29.0* PLT 168 201 174 AST -- 31 -- ALT -- 24 -- ALKP -- 133* -- ALB 3.1* 3.3* -- Date INR Dose Received 12/28 2.7 2 mg 12/29 2.9 2 mg x 1 Drug interactions: Potential to increase INR: cefepime (12/28-) Potential to decrease INR: Spironolactone Potential to increase the risk of bleeding: aspirin, sertraline Warfarin Sensitivity: high, based on the following risk factors: HF exacerbation, concomitant antiplatelet therapy, age 66-79, 1 moderate drug interaction, and diagnosis of heart failure. Hgb/Hct today are stable INR today is Therapeutic The plan is to give a 2 mg dose once tonight and recheck an INR in the morning to assist with subsequent dosing. Pharmacy will continue to monitor labs and notes daily, adjusting the dose as clinically appropriate. Thank you for the consult. Pharmacy to dose per Dr. Virgil Oh, PharmD Phone number: [phone] 12/29/2022 12:32 PM * Juanpablo Pandey MD - 12/29/2022 12:17 PM CDT Progress note Chief complaint: CHF, cellulitis Subjective Patient seen and examined. Reports of generalized aches and pain, back pain, neck pain, lower extremity pain. Continues to report shortness of breath. Denies any complaints of cough productive sputumdenies any abdominal pain, nausea, vomiting Review of Systems All other systems reviewed and are negative. OBJECTIVE Patient Vitals for the past 24 hrs: BP Temp Temp src Pulse Resp SpO2 Weight 12/29/22 0755 116/53 -- -- 90 21 98 % -- 12/29/22 0500 -- -- -- -- -- -- 103.8 kg (228 lb 14.4 oz) 12/29/22 0404 112/64 98.2 ??F (36.8 ??C) Oral 92 20 94 % -- 12/28/22 1943 108/60 97.9 ??F (36.6 ??C) Oral 99 18 95 % -- 12/28/22 1840 115/76 -- -- 87 -- 93 % -- 12/28/22 1745 -- -- -- 100 17 97 % -- 12/28/22 1630 106/84 -- -- 94 17 94 % -- 12/28/22 1620 120/82 -- -- 99 14 94 % -- 12/28/22 1500 124/71 -- -- 91 17 95 % -- 12/28/22 1435 (!) 143/96 -- -- 91 21 94 % -- 12/28/22 1400 124/79 -- -- 95 19 96 % -- 12/28/22 1300 121/68 -- -- 96 18 94 % -- 12/28/22 1230 (!) 122/92 -- -- 89 16 96 % -- Physical Exam Constitutional: Appearance: He is well-developed. HENT: Head: Normocephalic and atraumatic. Eyes: Pupils: Pupils are equal, round, and reactive to light. Cardiovascular: Rate and Rhythm: Normal rate and regular rhythm. Heart sounds: No murmur heard. No friction rub. Pulmonary: Effort: No respiratory distress. Breath sounds: No wheezing or rales. Chest: Chest wall: No tenderness. Abdominal: General: Bowel sounds are normal. There is distension. Palpations: Abdomen is soft. Tenderness: There is no abdominal tenderness. There is no guarding or rebound. Musculoskeletal: General: Swelling present. Normal range of motion. Cervical back: Normal range of motion and neck supple. Skin: General: Skin is warm and dry. Findings: No rash. Comments: Lower extremity edema. Bilateral stasis dermatitis changes, right lower extremity ulceration/dressed pleasant Neurological: Mental Status: He is alert and oriented to person, place, and time. LABS:. Recent Labs 12/28/22 1217 12/29/22 0403 WBC 10.68 8.73 HGB 9.1* 8.4* HCT 31.7* 29.0* MCV 80.3 79.7 PLT 201 174 RBC 3.95* 3.64* Recent Labs Lab 12/24/22 1505 12/28/22 1217 12/29/22 0403 NA 136 135* 134* K 5.0 4.9 4.6 CL 100 101 102 CO2 26.7 28.1 24.4 AGAP 9.3 5.9 7.6 BUN 38* 35* 34* CR 2.35* 2.26* 2.06* GLU 99 115* 59* CA 9.3 9.6 9.3 TP -- 8.3* -- ALB 3.1* 3.3* -- TBIL -- 1.0 -- ALKP -- 133* -- AST -- 31 -- ALT -- 24 -- Intake/Output Summary (Last 24 hours) at 12/29/2022 1221 Last data filed at 12/29/2022 0500 Gross per 24 hour Intake 300 ml Output 600 ml Net -300 ml RADIOLOGY : REVIEWED MEDICATIONS Scheduled medications amLODIPine 2.5 mg Oral Daily aspirin 81 mg Oral Daily atorvastatin 80 mg Oral Nightly at bedtime carvedilol 3.125 mg Oral BID cefepime 2 g Intravenous Q12H ipratropium-albuterol 3 mL Nebulization 4x daily - RT And fluticasone propionate 1 puff Inhalation 2 times daily furosemide 60 mg Intravenous BID gabapentin 300 mg Oral Daily gabapentin 600 mg Oral Nightly at bedtime insulin lispro 0-8 Units Subcutaneous 4x Daily AC and at bedtime nystatin Topical BID pantoprazole EC 40 mg Oral Daily rOPINIRole 4 mg Oral Nightly at bedtime sertraline 50 mg Oral Daily spironolactone 25 mg Oral Daily vancomycin 1,000 mg Intravenous Q24H vancomycin pharmacy to dose Intravenous See Admin Instructions warfarin (COUMADIN) pharmacy to dose Oral See Admin Instructions Infusion PRN acetaminophen, albuterol sulfate HFA, dextrose 10 % bolus, glucagon, glucose, HYDROcodone-acetaminophen, melatonin, morphine, ondansetron, polyethylene glycol, traZODone ASSESSMENT /PLAN CHF (congestive heart failure) ([facility]) Acute on chronic systolic/diastolic heart failure Aortic stenosis s/p MVR in 1999 & bioprosthetic valve (2013) Severe pulm hypertension Coronary artery disease Admitted with increased shortness of breath noted to have elevated BNP Continue IV Lasix Cardiology consulted. Appreciate cardiology input Continue home medications Monitor input output, daily weights, renal functions closely Echocardiogram ordered-follow results Monitor on telemetry Right lower extremity cellulitis Chronic superficial ulceration of right lower extremity Patient started on a broad-spectrum antibiotics Follow cultures Wound care consultation. Appreciate wound care input History of atrial fibrillation Continue rate limiting medications Patient on warfarin continue Acute on chronic kidney disease stage III Baseline creatinine around 1.6-1.[address] abdomen noncontrast ordered we will follow results Diabetes mellitus Hold oral agents Start on sliding scale insulin Monitor blood glucose ACHS Abdominal distention/? Sigmoid volvulus CT abdomen pelvis concerning for sigmoid volvulus Colorectal surgery consulted, appreciate recommendations No symptoms of abdominal pain. Per colorectal surgery can advance diet Will monitor clinically Chronic neck pain Plan to undergo cervical surgery as an outpatient basis Continue home medications, pain control Will notify Dr. Pond. DVT prophylaxis; patient already on anticoagulation therapy Code status: Full Code JUANPABLO PANDEY MD * Randi Bucio RN - 12/29/2022 11:19 AM CDT 12/29/22 1100 Wound 12/28/22 Pretibial Right Date First Assessed/Time First Assessed: 12/28/221999 Location: Pretibial Wound Location Orientation: Right Pre-existing: Yes Wound Bed Assessment Partial Thickness;[place];Yellow Anya-wound Assessment Hemosiderin staining Wound Length (cm) 2 cm Wound Width (cm) 0.5 cm Wound Depth (cm) 0.2 cm Wound Surface Area (cm^2) 1 cm^2 Dressing Alginate, silver impregnated;Foam border adhesive Dressing Changed Reinforced Obie Sims is 67 yr old with hx of CAD, DM, COPD. He reports living with his daughter, he has special socks but has not worn them for awhile. It appears he had STELLA in 11/2021. He reports leg weakness, falls, twitching, pain/numbness with legs elevated, He reports sitting in chair with legs dependent due to discomfort. He has had lower leg swelling with extension to thighs. Currently, bilateral lower legs with minimal edema, thighs and abdomen with swelling, will place tubigrip from toes to thigh. He reports he is to have neck surgery on Wednesday. Right lower leg with mepilex in place with alginate noted under, small ulceration pink/yellow base, no odor, skin discoloration to bilateral lower le gs--suspect mixed etiology of venous/arterial * Zayra Martínez RN - 12/29/2022 11:02 AM CDT No needs known of at this time. Will follow. 12/29/22 1102 Interdisciplinary Group Conference Team Members Present Physician Barriers to Discharge Barriers Not Medically ready Not Medically ready follow up cellulits/ couple more days. * Prince Nkechi Moseley RN - 12/29/2022 9:48 AM CDT Problem: Pain Goal: Patient's pain/discomfort is [...] and interventions as needed. Outcome: Progressing Problem: Venous Thromboembolism - Risk of Goal: Absence of venous thromboembolism Outcome: Progressing Problem: Mobility - Impaired Goal: Able to use ambulatory assistive device appropriately Outcome: Progressing Goal: Knowledge of need for increased mobility Outcome: Progressing Problem: Gas Exchange - Impaired Goal: Absence of cyanosis signs and symptoms Outcome: Progressing Goal: Pulse oximetry within specified parameters Outcome: Progressing Problem: Discharge Planning Goal: Knowledge [...] of new skin breakdown Outcome: Progressing Problem: Discharge Planning Goal: Knowledge of discharge instructions Outcome: Progressing Problem: Activity Intolerance Goal: Improved activity tolerance Outcome: Progressing Problem: Fluid Volume - Excess Goal: Absence of fluid overload signs and symptoms Outcome: Progressing Goal: Electrolytes within specified parameters Outcome: Progressing Problem: Reduced risk for falls/injury Goal: Reduced Risk for Falls/Injury Outcome: Progressing Goal: Reduced Risk of Confusion (Acute vs Chronic) Outcome: Progressing Goal: Reduced Risk of Symptomatic Depression Outcome: Progressing Goal: Reduced Risk of Altered Elimination Outcome: Progressing Goal: Reduced Risk of Dizziness/Vertigo/Balance Outcome: Progressing Goal: Reduced Risk of Polypharmacy Outcome: Progressing Problem: Skin integrity, at risk Goal: Absence of new skin breakdown Outcome: Progressing Problem: Activity Intolerance Goal: Improved activity tolerance Outcome: Progressing Goal: Able to participate in acute rehabilitation Outcome: Progressing Goal: Able to perform prescribed physical activity Outcome: Progressing Problem: Tissue Perfusion - Cardiopulmonary, Altered Goal: Absence of chest pain Outcome: Progressing Problem: Venous Thromboembolism - Risk of Goal: Absence of venous thromboembolism Outcome: Progressing * Amauri Pandey MD - 12/29/2022 6:41 AM CDT Chart reviewed. CHF (systolic/diastolic) -- acute on chronic. RLE ulceration/cellulitis Aortic stenosis -- S/P AVR (1999) and bioprosthesis (2013). Severe pulmonary HTN CAD Hx of atrial fibrillation -- S/P ablation. ALICIA on CKD Carotid artery disease COPD HTN Hyperlipidemia Diabetes mellitus -- type II. Anxiety Rhythm: Afib BP 112/64 mmHg. I/Os not recorded yet. Labs: K+ 4.6, BUN/Cr 34/2.06, TSH 4.90, Hgb 8.4, INR 2.9, BNP 5,795. CT scan (Abd/pelvis): Sigmoid volvulus, Small ascites/anasarca. Physical Exam Vitals reviewed. Constitutional: No distress. Examined in bed. Neck: Neck supple. No JVD. CV: Irregular rhythm. No rub. Pedal pulses 1+ bilaterally. Abdomen: Abdomen soft. Bowel sounds normal. Distension. No tenderness. No abdominal bruit present. Pulmonary: Breath sounds normal. Increased effort. Skin: Warm and dry. No rash. No jaundice. No cyanosis. No clubbing. No xanthoma. Dry flaky skin. . Musculoskeletal: No kyphosis. Normal ROM. Neurological: Alert. Oriented x 3. Appropriate mood and affect. Comments: +2 BLE edema with abdominal tightness. BLE erythematous with scabs and scaling. Surgical consultation for sigmoid volvulus noted. Ascites/anasarca secondary to right heart failure/pulmonary hypertension. Will continue attempts at diuresis and maximizing GDMT for CHF while following renal function closely. Antibiotics continue for LE ulcerations/cellulitis. I spent 35 minutes reviewing the chart, taking the history, examining the patient, and documenting in the chart. ?? * Irving Bhatti MD - 12/29/2022 6:41 AM CDT ASSESSMENT/PLAN: Patient is a 67-year-old male with multiple severe medical comorbidities admitted for CHF exacerbation. Colorectal surgery consulted for CT findings of sigmoid volvulus. Likely a chronic or transientfinding given that he denies any abdominal pain and has been having bowel function. - No plans for surgical intervention at this time - Tolerating clear liquids, OK to advance diet from surgical perspective - Please call if any new abdominal pain, distention or change in his clinical course - Would require at least a colonoscopic detorsion and rectal tube placement if he develops symptoms Staff: Dr. Orlando Bhatti MD RES SUBJECTIVE: No acute events reported overnight. Denies any abdominal pain, nausea, or vomiting. Reports passingflatus all night and minimal abdominal distention. No other complaints OBJECTIVE: Filed Vitals: 12/28/22 1745 12/28/22 1840 12/28/22 1943 12/29/22 0404 BP: 115/76 108/60 112/64 Pulse: 100 87 99 92 Resp: 17 18 Temp: 97.9 ??F (36.6 ??C) 98.2 ??F (36.8 ??C) TempSrc: Oral SpO2: 97% 93% 95% 94% Weight: Height: No intake/output data recorded. Physical Examination: GEN: Lying in hospital bed. No acute distress. HEENT: NC/AT. No scleral icterus. No JVD noted. CV: Regular rate, no tachycardia. RESP: Airway patent. No increased respiratory effort. ABD: Soft, nondistended, no tympany to percussion. Nontender EXT: No cyanosis or edema Cosigned by Taye Perry MD at 12/29/2022 4:07 PM CDT * Roland Longoria RN - 12/29/2022 5:32 AM CDT Problem: Fluid Volume - Excess Goal: Absence of fluid overload signs and symptoms Outcome: Progressing Goal: Electrolytes within specified parameters Outcome: Progressing Problem: Tissue Perfusion - Cardiopulmonary, Altered Goal: Absence of chest pain Outcome: Progressing Problem: Activity Intolerance Goal: Able to perform prescribed physical activity Outcome: Progressing Problem: Skin integrity, Impaired-wound Goal: Absence of new skin breakdown Outcome: Progressing Goal: Evidence of wound healing Outcome: Not Progressing Problem: Gas Exchange - Impaired Goal: Absence of cyanosis signs and symptoms Outcome: Progressing Goal: Pulse oximetry within specified parameters Outcome: Progressing Problem: Mobility - Impaired Goal: Able to use ambulatory assistive device appropriately Outcome: Not Progressing Goal: Knowledge of need for increased mobility Outcome: Not Progressing Problem: Safety Goal: Patient will be [...] identify potential discharge needs. Outcome: Progressing Problem: Venous Thromboembolism - Risk of Goal: Absence of venous thromboembolism Outcome: Progressing Problem: Reduced risk for falls/injury Goal: Reduced Risk for Falls/Injury Outcome: Progressing * Prince Nkechi Moseley RN - 12/28/2022 6:30 PM CDT Problem: Pain Goal: Patient's pain/discomfort [...] and interventions as needed. Outcome: Progressing Problem: Venous Thromboembolism - Risk of Goal: Absence of venous thromboembolism Outcome: Progressing Problem: Mobility - Impaired Goal: Able to use ambulatory assistive device appropriately Outcome: Progressing Goal: Knowledge of need for increased mobility Outcome: Progressing Problem: Gas Exchange - Impaired Goal: Absence of cyanosis signs and symptoms Outcome: Progressing Goal: Pulse oximetry within specified parameters Outcome: Progressing Problem: Discharge Planning Goal: Knowledge [...] Absence of new skin breakdown Outcome: Progressing * Aaliyah CastroD - 12/28/2022 4:42 PM CDT Warfarin - Pharmacy Dosing Service [...] of breath) Stroke ([facility]) Varicose veins of bilateral lower extremities with other complications Weight gain with edema Home warfarin dose: 3 mg daily confirmed with patient Bridging agent: none Vitamin K use: No Diet: PO Recent Labs Lab 12/24/22 1505 12/28/22 1217 HGB 8.6* 9.1* HCT 29.1* 31.7* PLT 168 201 AST -- 31 ALT -- 24 ALKP -- 133* ALB 3.1* 3.3* Date INR Dose Received 12/28 2.7 2 mg Drug interactions: Potential to increase INR: cefepime Potential to decrease INR: none Potential to increase the risk of bleeding: aspirin, sertraline Warfarin Sensitivity: high, based on the following risk factors: HF exacerbation, concomitant antiplatelet therapy, age 66-79, 1 moderate drug interaction, and diagnosis of heart failure. Hgb/Hct today are stable INR today is Therapeutic The plan is to give a 2 mg dose once tonight and recheck an INR in the morning to assist with subsequent dosing. Pharmacy will continue to monitor labs and notes daily, adjusting the dose as clinically appropriate. Thank you for the consult. Pharmacy to dose per Dr. Virgil RYDER, PharmD Phone number: [phone] 12/28/2022 4:43 PM * Aaliyah CastroD - 12/28/2022 4:00 PM CDT Vancomycin Pharmacokinetic Progress Note Day 0 of therapy Obie Sims is a 67-year-old male for which pharmacy has been consulted to dose vancomycin for Skin/Soft Tissue Infection . Other antibiotics ordered include cefepime. Historical vancomycin use: none Allergies: No Known Allergies Height: 5' 6 (1.676 m) Weight: 102.7 kg (226 lb 6.6 oz) Body mass index is 36.54 kg/m??. Temp (24 hr max): Temp Av.4 ??F (36.9 ??C) Min: 98.4 ??F (36.9 ??C) Max: 98.4 ??F (36.9 ??C) Today's labs and vitals: Lab Results Component Value Date/Time WBC 10.68 12/28/2022 12:17 PM WBC 7.17 12/24/2022 03:05 PM WBC 9.6 02/04/2022 04:53 AM WBC 10.7 02/03/2022 04:35 AM WBC 12.3 (H) 02/01/2022 11:27 AM Lab Results Component Value Date/Time CR 2.26 (H) 12/28/2022 12:17 PM CR 2.35 (H) 12/24/2022 03:05 PM CR 1.69 (H) 11/09/2022 12:11 PM CR 1.28 02/04/2022 04:53 AM CR 1.34 (H) 02/03/2022 04:35 AM CrCl = estimated creatinine clearance is 35.1 mL/min (A) (based on SCr of 2.26 mg/dL (H)). No intake or output data in the 24 hours ending 12/28/22 1600 Pertinent Cultures: Date Drawn Site Organism Pertinent Sensitivity 12/28 UCx Sent 12/28 BCx In process 12/28 Sputum Sent Levels: Date Time Level AUC Dose Comments Assessment: Obie Sims is a 67-year-old male who is currently receiving vancomycin. AUC goal is 400 - 600 Current AUC level is Pending Renal function is Worsening Plan: Antibiotic Plan: vancomycin 2000 mg once followed by 1000 mg every 24 hours; projected AUC of 580 Next level due: 12/30 with AM labs Pharmacy will continue to follow cultures, clinical status, and appropriateness of therapy. Thank you for the consult. Pharmacy Consult per Dr. Virgil RYDER, PharmRandy Phone: [phone] 12/28/2022 4:00 PM * Misael Jamison RN - 12/28/2022 3:30 PM CDT 12/28/22 1513 Referral Data Referral Reason Discharge Planning Source of Information Patient Patient Information Primary Caregiver Self Support System Immediate family Baseline ADL's Functional Status Minimum assistance Living Arrangements Children Type of Residence Private residence Ambulation Assistance No Active DME Walker;Cane;Oxygen Bathing/Grooming Assistance No Dressing Assistance No Behavior Oriented;Cooperative Communication Talks;Understands speaking;Understands Mold[place] Socioeconomic Needs Caregiver Needed Yes At Risk of Abuse or Neglect No Adequate Resources Yes Psychological Needs: Mental health concerns No Suspected Drug or Alcohol Abuse No Inappropriate Patient/Family Behaviors No Difficult Adjustment to Diagnosis No Recent Hospitalization Recent Hospitalization within 30 days No Anticipated Discharge Needs Change in Living Arrangements No In-Home Care or Equipment No Vocational and/or Role Loss No Inability to Complete ADL's Yes Anticipated DC Plan Living Arrangements Children Support Systems Children Type of Residence Private residence Assistance Needed Yes Discharge assistance Home Care Services Patient expects to be discharged to: Home Cs Associate introduced self and explained CM role to pt. Pt lives at home with his daughter, Bonnie, who can be reached at [phone]. Pt is dependent on his daughter for assist x 1 for ADLs. Pt needs help with dressing, bathing, and grooming. Pt can feed self. Pt is requesting help from [facility] for a caregiver at home. Pt uses a cane and a standard walker to ambulate around home. Pt is on 2LNC O2 at home from [facility]. No dialysis. No hospitalizations within last 30 days. Pt has had COVID vaccines but needs booster. No POA. PCP: Dr Infante Rx: [facility] in [place], [place]([phone]) Cs Associate contacted [facility] for [facility] and spoke to Maria M. Maria M will call ptto follow up on caregiver needs at home per pt request. ([phone] Cs Associate went to update pt on senior services call and he was already on the phone with resource. ([phone]) documented in this encounter H&P Notes * Juanpablo Pandey MD - 12/28/2022 4:03 PM CDT Hospitalist H&P Note Attending Provider: Juanpablo Pandey MD PCP: MEGAN INFANTE MD Obie Sims is an 67-year-old male. Reason for Admission: CHF (congestive heart failure) (CMS/[facility]) HPI: 67-year-old male history of CAD, COPD, aortic stenosis s/p MVR in 1999 and Bioprosthetic in 2013, Type 2 DM, A-fib on warfarin, Chronic HFpEF, severe pulm hypertension, hypertension, hyperlipidemia, CKD3(baseline creatinine 1.6- 1.8), CVA (lacunar infarct in nicholas & L. 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 Apparently patient was evaluated by his primary care team was treated for cellulitis recently. Patient reports increased detail lower extremity edema, swelling, tightness and radiating over the past few weeks. He has no complaints of chest pain denies any cough productive sputum.patient denies any complaints of abdominal pain noticed abdominal bloating, distention denies any nausea, vomiting, melena, bleeding per rectum. He also noted to have right lower extremity superficial ulcerations. Patient was evaluated in the emergency department noted to have elevated BNP, worsening creatinine from his baseline. Chest x-ray did not show any acute findings. He was started on a broad-spectrum antibiotics given a dose of IV Lasix. Cardiology was consulted from emergency department patient being admitted for further management Past Medical History Past Medical History: Diagnosis Date Abnormal ankle brachial index (STELLA) Acute on chronic heart failure, unspecified heart failure type (CMS/HCC) Anxiety Aortic valve stenosis Arthritis Asthma, mild persistent 04/06/2021 Atrial fibrillation ([facility]/HCC) s/p PVI/[facility] 10/2015 Bilateral leg pain Carotid disease, bilateral ([facility]) CHF (congestive heart failure) ([facility]) Claudication ([facility]) COPD (chronic obstructive pulmonary disease) ([facility]) Coronary artery disease Diabetes mellitus, type II ([facility]) Edema 04/19/2018 2+ pitting History of blood transfusion Hyperlipidemia Hypertension LV dysfunction Osteoarthritis PAD (peripheral artery disease) ([facility]) Pneumonia Restless leg syndrome S/P aortic valve replacement with bioprosthetic valve 2013 SOB (shortness of breath) Stroke ([facility]) Varicose veins of bilateral lower extremities with other complications Weight gain with edema Past Surgical History: Procedure Laterality Date APPENDECTOMY CARDIAC VALVE REPLACEMENT 1999 CARDIAC VALVE REPLACEMENT 2013 CARDIOVERSION EXTERNAL 10/01/2015 CARDIOVERSION EXTERNAL 04/14/2012 COLONOSCOPY N/A 03/18/2021 COLONOSCOPY (Incomplete) performed by Kilo Navarro MD at [facility] OR COLONOSCOPY N/A 01/27/2022 COLONOSCOPY WITH COLD SNARE POLYPECTOMY performed by Kilo Navarro MD at [facility] OR HIP ARTHROPLASTY Left KNEE ARTHROPLASTY Bilateral REPAIR ROTATOR CUFF W/ OR W/O ACROMIOPLASTY Left USE NEMO+CARDIOVERSION 03/24/2016 XA A-FIB ABLATION 10/23/2015 PVI/[facility] Allergies: Review of patient's allergies indicates: No Known Allergies Social History Social History Tobacco Use Smoking status: Former Smokeless tobacco: Former Types: Chew Substance Use Topics Alcohol use: Yes Comment: 6 beers per week Family History Family History Problem Relation Name Age of Onset TB Mother Medications No current facility-administered medications on file prior to encounter. Current Outpatient Medications on File Prior to Encounter Medication Sig albuterol sulfate HFA 108 (90 Base) MCG/ACT inhaler Inhale 2 puffs into the lungs every 4 (four) hours as needed. allopurinol 300 MG tablet Take 1 tablet (300 mg total) by mouth daily. amlodipine 2.5 MG tablet Take 1 tablet (2.5 mg total) by mouth daily. aspirin 81 MG chewable tablet Chew 1 tablet (81 mg total) by mouth daily. atorvastatin 80 MG tablet Take 1 tablet (80 mg total) by mouth nightly at bedtime. camphor-menthol (SARNA) lotion Apply topically 2 (two) times a day. carvedilol (COREG) 3.125 MG tablet Take 1 tablet (3.125 mg total) by mouth 2 (two) times daily. furosemide (LASIX) 80 MG tablet TAKE 1 1/2 TABLETS (120 MG) DAILY FOR 2 DAYS, THEN TAKE 1 TABLET (80 MG) DAILY (Patient taking differently: Take 1 tablet (80 mg total) by mouth daily. TAKE 1 1/2 TABLETS (120 MG) DAILY FOR 2 DAYS, THEN TAKE 1 TABLET (80 MG) DAILY) gabapentin (NEURONTIN) 400 MG capsule Take 1 capsule (400 mg total) by mouth. 1 tablet in the morning and 2 tablets at night glipiZIDE XL (GLUCOTROL XL) 5 MG 24 hr tablet 1-2 tablets daily in am HYDROcodone-acetaminophen (NORCO) 7.5-325 MG tablet Take 1 tablet by mouth 2 (two) times daily as needed. hydrOXYzine (ATARAX) 50 MG tablet Take 1 tablet (50 mg total) by mouth 3 (three) times daily. As needed insulin detemir (LEVEMIR FLEXPEN) 100 UNIT/ML PEN Inject into the skin as needed. JARDIANCE 25 MG tablet Take 1 tablet (25 mg total) by mouth daily. metFORMIN 500 MG tablet Take 1 tablet (500 mg total) by mouth 2 (two) times daily with meals. methocarbamol (ROBAXIN) 500 MG tablet Take 1 tablet (500 mg total) by mouth 2 (two) times a day. mupirocin (BACTROBAN) 2 % ointment Apply 1 [...] BREATH ACTIVATED Inhale into the lungs daily. warfarin (COUMADIN) 5 MG tablet As directed docusate sodium 100 MG capsule Take 1 capsule (100 mg total) by mouth as needed for Constipation. warfarin (COUMADIN) 1 MG tablet As directed Current Facility-Administered Medications: acetaminophen (TYLENOL) tablet 650 mg, 650 mg, Oral, Q6H PRN, Juanpablo Pandey MD albuterol sulfate HFA 108 (90 Base) MCG/ACT inhaler 2 puff, 2 puff, Inhalation, Q4H PRN, Juanpablo Birmingham MD [START ON 12/29/2022] amLODIPine (NORVASC) tablet 2.5 mg, 2.5 mg, Oral, Daily, Juanpablo Pandey MD [START ON 12/29/2022] aspirin chewable tablet 81 mg, 81 mg, Oral, Daily, Juanpablo Pandey MD atorvastatin (LIPITOR) tablet 80 mg, 80 mg, Oral, Nightly at bedtime, Juanpablo Pandey MD carvedilol (COREG) tablet 3.125 mg, 3.125 mg, Oral, BID, Juanpablo Pandey MD ceFEPIme (MAXIPIME) 2 g in sodium chloride (PF) 0.9 % 10 mL IV, 2 g, Intravenous, Q12H, Juanpablo Pandey MD ipratropium-albuterol (DUONEB) 0.5-2.5 (3) MG/3ML nebulizer solution 3 mL, 3 mL, Nebulization, Q6H AND fluticasone propionate (FLOVENT HFA) 44 MCG/ACT inhaler 1 puff, 1 puff, Inhalation, 2 times daily, Juanpablo Pandey MD [START ON 12/29/2022] furosemide (LASIX) injection 60 mg, 60 mg, Intravenous, BID, Juanpablo Pandey MD gabapentin (NEURONTIN) capsule 300 mg, 300 mg, Oral, BID, Juanpablo Pandey MD HYDROcodone-acetaminophen (NORCO) 7.5-325 MG tablet 1 tablet, 1 tablet, Oral, BID PRN, Juanpablo Pandey MD morphine injection 2 mg, 2 mg, Intravenous, Q4H PRN, Fotrunato Guzmán MD, 2 mg at 12/28/22 1518 ondansetron (ZOFRAN) injection 4 mg, 4 mg, Intravenous, Q8H PRN, Juanpablo Pandey MD pantoprazole EC (PROTONIX) tablet 40 mg, 40 mg, Oral, Daily, Juanpablo Pandey MD polyethylene glycol (GLYCOLAX) packet 17 g, 17 g, Oral, Daily PRN, Juanpablo Pandey MD rOPINIRole (REQUIP) tablet 4 mg, 4 mg, Oral, Nightly at bedtime, Juanpablo Pandey MD [START ON 12/29/2022] sertraline (ZOLOFT) tablet 50 mg, 50 mg, Oral, Daily, Juanpablo Pandey MD [START ON 12/29/2022] spironolactone (ALDACTONE) tablet 25 mg, 25 mg, Oral, Daily, Juanpablo Pandey MD [START ON 12/29/2022] vancomycin 1000 mg in NS 250 mL IVPB, 1,000 mg, Intravenous, Q24H, Juanpablo Pandey MD Pharmacy to dose vancomycin, , , Once AND vancomycin pharmacy to dose placeholder, , Intravenous, See Admin Instructions, Juanpablo Pandey MD Pharmacy to dose warfarin (COUMADIN), , , Once AND warfarin (COUMADIN) pharmacy to dose placeholder, , Oral, See Admin Instructions, Juanpablo Pandey MD Current Outpatient Medications: albuterol sulfate HFA 108 [...] 2 (two) times daily., Disp: , Rfl: furosemide (LASIX) 80 [...] the lungs daily.,Disp: , Rfl: warfarin (COUMADIN) 5 MG tablet, As directed, Disp: , Rfl: docusate sodium 100 MG capsule, Take 1 capsule (100 mg total) by mouth as needed for Constipation.,Disp: , Rfl: warfarin (COUMADIN) 1 MG tablet, As directed, Disp: , Rfl: Principal Problem: CHF (congestive heart failure) (CMS/[facility]) SNOMED CT(R): CONGESTIVE HEART FAILURE VITAL SIGNS Blood pressure 124/71, pulse 91, temperature 98.4 ??F (36.9 ??C), temperature source Oral, resp. rate 17, height 5' 6 (1.676 m), weight 102.7 kg (226 lb 6.6 oz), SpO2 95 %. Review of Systems Review of Systems All other systems reviewed and are negative. Physical Exam Physical Exam Constitutional: Appearance: He is well-developed. HENT: Head: Normocephalic and atraumatic. Eyes: Pupils: Pupils are equal, round, and reactive to light. Cardiovascular: Rate and Rhythm: Normal rate and regular rhythm. Heart sounds: No murmur heard. No friction rub. Pulmonary: Effort: No respiratory distress. Breath sounds: No wheezing or rales. Chest: Chest wall: No tenderness. Abdominal: General: Bowel sounds are normal. There is distension. Palpations: Abdomen is soft. Tenderness: There is no abdominal tenderness. There is no guarding or rebound. Musculoskeletal: General: Swelling present. Normal range of motion. Cervical back: Normal range of motion and neck supple. Comments: Bilateral lower extremity stasis dermatitis changes. right lower extremity superficial ulcerations noted Skin: General: Skin is warm and dry. Findings: No rash. Neurological: Mental Status: He is alert and oriented to person, place, and time. Labs Results for orders placed or performed during the hospital encounter of 12/28/22 CBC W/DIFF AUTOMATED Result Value Ref Range WBC 10.68 4.00 - 10.80 x10'3/uL RBC 3.95 (L) 4.50 - 6.10 x10'6/uL HGB 9.1 (L) 13.0 - 18.0 G/DL HCT 31.7 (L) 37.0 - 52.0 % MCV 80.3 78.0 - 100.0 FL MCH 23.0 (L) 27.0 - 31.0 PG MCHC 28.7 (L) 33.0 - 36.0 G/DL RDW 18.3 (H) 11.5 - 14.5 % PLT 201 150 - 350 x10'3/uL MPV 11.1 (H) 7.4 - 10.4 FL ABS. NEUTROPHILS 7.71 1.60 - 8.30 x10'3/uL ABS. LYMPHOCYTES 1.48 0.80 - 4.70 x10'3/uL ABS. MONOCYTES 1.18 0.00 - 1.50 x10'3/uL ABS. EOSINOPHILS 0.20 0.00 - 0.40 x10'3/uL ABS. BASOPHILS 0.07 0.00 - 0.20 x10'3/uL ABS. IMMATURE GRANULOCYTES 0.04 (H) 0.00 - 0.03 x10'3/uL ABS. NUCLEATED RBC'S 0.00 0.0 x10'3/uL BASIC METABOLIC PANEL Result Value Ref Range SODIUM S/P/B 135 (L) 136 - 145 MMOL/L POTASSIUM S/P/B 4.9 3.5 - 5.1 MMOL/L CHLORIDE S/P/B 101 98 - 107 MMOL/L CO2 28.1 21.0 - 32.0 MMOL/L GLUCOSE 115 (H) 74 - 106 MG/DL BUN 35 (H) 7 - 18 MG/DL CREATININE S/P/B 2.26 (H) 0.70 - 1.30 MG/DL CALCIUM 9.6 8.5 - 10.1 MG/DL ANION GAP 5.9 5.0 - 15.0 MMOL/L OSMOLALITY (CALC) 289 MOSM/KG GFR ESTIMATE 31 (L) >90 ML/MIN/1.73 M2 GFR NOTES GFR REFERENCES: MAGNESIUM Result Value Ref Range MAGNESIUM 2.3 1.6 - 2.6 MG/DL PRO-BRAIN NATRIURETIC PEPTIDE Result Value Ref Range PRO-B TYPE NATRIURETIC PEPTIDE 5,795 (H) <125 PG/ML TROPONIN, QUANT Result Value Ref Range TROPONIN I HIGH SENSITIVITY 40 0 - 78 ng/L SED RATE, ERYTHROCYTE (ESR) Result Value Ref Range ESR 115 (H) 0 - 15 MM/HR C-REACTIVE PROTEIN Result Value Ref Range C-REACTIVE PROTEIN 1.85 (H) <0.80 mg/dL PROCALCITONIN (PCT) Result Value Ref Range Procalcitonin 0.28 <0.50 NG/ML PROTIME/INR, VENOUS Result Value Ref Range PROTIME 31.2 (H) 9.4 - 12.5 SEC INR 2.7 (H) 0.8 - 1.1 HEPATIC FUNCTION PANEL Result Value Ref Range BILIRUBIN TOTAL S/P/B 1.0 0.2 - 1.0 MG/DL BILIRUBIN DIRECT S/P/B 0.3 (H) 0.0 - 0.2 MG/DL ALKALINE PHOSPHATASE S/P/B 133 (H) 45 - 115 U/L AST 31 15 - 37 U/L ALT 24 16 - 61 U/L TOTAL PROTEIN S/P/B 8.3 (H) 6.4 - 8.2 G/DL ALBUMIN S/P/B 3.3 (L) 3.4 - 5.0 G/DL RBC MORPHOLOGY Result Value Ref Range RBC MORPHOLOGY ANISOCYTOSIS Imaging ECG 12 lead Result Date: 12/28/2022 S-ED Test Date: 2022-12-28 Pat Name: BOIE SIMS Department: 70 Room: Gender: Male Director Digital Advertising: ISABEL : 1955 Requested By: EVELINE JACINTO Order Number: [id number] Reading MD: Measurements Intervals [place] Rate: 90 P: IN: 0 QRS: -35 QRSD: 132 T: 136 QT: 388 QTc: 476 Interpretive Statements ATRIAL FIBRILLATION MARKED LEFT AXIS DEVIATION [QRS AXIS < -30] LEFT BUNDLE BRANCH BLOCK [120+ ms QRS DURATION, 80+ ms Q/S IN V1/V2, 85+ ms R IN I/aVL/V5/V6] XR CHEST PA+LAT Result Date: 12/28/2022 Patient name: OBIE SIMS Examination: Chest x-ray 2 view Exam time: 12/28/2022 11:56 AM Clinical history: 67 years Male. Shortness of breath Comparison: 02/04/2022 Technique: Frontal and lateral views of the chest were obtained. Findings: No parenchymal consolidation. Blunting of right costophrenicangle. No pneumothorax. Cardiomegaly unchanged. Atherosclerosis. Old rib fractures. Sternotomy wires, mediastinal clips, aortic valve prosthesis again identified. IMPRESSION: 1. No acute findings. Ordered By: EVELINE JACINTO Interpreted By: Kirk Lemus MD, 12/28/2022 12:14 PM ELECTROCARDIOGRAM Result Date: 12/28/2022 [place], [facility] [address] [place] [address] Test Date:2022-12-28 Pat Name: OBIE SIMS Department: 105 Room: Gender: Male Director Digital Advertising: AAB : 1955 Requested By: AMAURI PANDYE Order Number: [id number] Reading MD: Stalin Measurements Intervals [place] Rate: 80 P: IN: 0 QRS: -68 QRSD: 138 T: 92 QT: 372 QTc: 432 Interpretive Statements ATRIAL FIBRILLATION LEFT AXIS DEVIATION INTRAVENTRICULAR CONDUCTION DELAY Assessment and Plan:: Acute on chronic systolic/diastolic heart failure Aortic stenosis s/p MVR in 2000 & bioprosthetic valve (2013) Severe pulm hypertension Coronary artery disease Admitted with increased shortness of breath noted to have elevated BNP We will continue with IV Lasix 60 twice daily Cardiology consulted. Appreciate cardiology input No complaints of chest pain, initial troponin negative Continue home medications Monitor input output, daily weights, renal functions closely Echocardiogram ordered Monitor on telemetry Right lower extremity cellulitis Chronic superficial ulceration of right lower extremity Patient started on a broad-spectrum antibiotics Follow cultures Wound care consultation History of atrial fibrillation Continue rate limiting medications Patient on warfarin continue Acute on chronic kidney disease stage III Baseline creatinine around 1.6-1.[address] abdomen noncontrast ordered we will follow results Diabetes mellitus Hold oral agents Start on sliding scale insulin Monitor blood glucose ACHS Abdominal distention CT abdomen pelvis without contrast Monitor DVT prophylaxis; patient already on anticoagulation therapy Code Status: Full Code Plan discussed in detail. Answered all questions. Thank you for choosing [facility] hospitalist service. JUANPABLO PANDEY MD 12/28/2022 documented in this encounter Consult Notes * Irving Bhatti MD - 12/28/2022 8:03 PM CDTAssociated Order(s): IP CONSULT TO COLORECTAL SURGERY Reason for Consultation: sigmoid volvulus HPI: Patient is a 67-year-old male with multiple medical co-morbidities including CHF, CAD, COPD, severepulmonary hypertension, DM2, Afib on Coumadin, CVA, CKD, and aortic valve replacement w/ bioprosthesis who presented to the ED with shortness of breath, weight gain, and lower extremity edema worsening over the last few weeks. He is noted to have some mild abdominal distention for which a CT Abd/Pel was ordered and read as sigmoid volvulus. He denies any abdominal pain, nausea, vomiting melena, or hematochezia. He has been tolerating oral intake, reports having a bowel movement yesterday and has been passing flatus several times earlier today. He reports having a colonoscopy performed a few mo nths ago in [place] and was told he had a few polyps and should return for repeat colonoscopy in3 years. He denies any personal or family history of inflammatory bowel disease or colorectal cancer. PMH: Past Medical History: Diagnosis Date Abnormal ankle [...] with other complications Weight gain with edema PSH: Past Surgical History: Procedure Laterality Date APPENDECTOMY CARDIAC VALVE REPLACEMENT 1999 CARDIAC VALVE REPLACEMENT 2013 CARDIOVERSION EXTERNAL 10/01/2015 CARDIOVERSION EXTERNAL 04/14/2012 COLONOSCOPY N/A 03/18/2021 COLONOSCOPY (Incomplete) performed by Kilo Navarro MD at [facility] OR COLONOSCOPY N/A 01/27/2022 COLONOSCOPY WITH COLD SNARE POLYPECTOMY performed by Kilo Navarro MD at [facility] OR HIP ARTHROPLASTY Left KNEE ARTHROPLASTY Bilateral REPAIR ROTATOR CUFF W/ OR W/O ACROMIOPLASTY Left USE NEMO+CARDIOVERSION 03/24/2016 XA A-FIB ABLATION 10/23/2015 PVI/[facility] Social History: Social History Socioeconomic History Marital status: Spouse name: Ema Number of children: 2 Years of education: Not on file Highest education level: Not on file Occupational History Employer: NOT EMPLOYED Tobacco Use Smoking status: Former Smokeless tobacco: Former Types: Chew Vaping Use Vaping Use: Never used Substance and Sexual Activity Alcohol use: Yes Comment: 6 beers per week Drug use: No Sexual activity: Not on file Other Topics Concern Exercise No Special Diet No Caffeine Concern No Service Not Asked Blood Transfusions Not Asked Occupational Exposure Not Asked Hobby Hazards Not Asked Sleep Concern Not Asked Stress Concern Not Asked Weight Concern Not Asked Back Care Not Asked Bike Helmet Not Asked Seat Belt Not Asked Self-Exams Not Asked Social History Narrative Not on file Social Determinants of Health Financial Resource Strain: Low Risk Difficulty of Paying Living Expenses: Not very hard Food Insecurity: No Food Insecurity Worried About Running Out of Food in the Last Year: Never true Ran Out of Food in the Last Year: Never true Transportation Needs: No Transportation Needs Lack of Transportation (Medical): No Lack of Transportation (Non-Medical): No Physical Activity: Not on file Stress: Not on file Social Connections: Not on file Intimate Partner Violence: Not At Risk Fear of Current or Ex-Partner: No Emotionally Abused: No Physically Abused: No Sexually Abused: No Housing Stability: Low Risk Unable to Pay for Housing in the Last Year: No Number of Places Lived in the Last Year: 1 Unstable Housing in the Last Year: No Family History: Family History Problem Relation Name Age of Onset TB Mother Medications: No current outpatient medications on file. Allergies: No Known Allergies Review of Systems: GEN: No fevers, chills. HEENT: No scleral icterus. No change in vision or hearing. No dysphagia CV: No chest pain or palpitations. +edema LUNGS: +SOB. No cough GI: No abdominal pain, nausea, or vomiting. No melena or hematochezia. : No dysuria or frequency ENDO: No heat or cold intolerance HEME: No easy bruising or bleeding. NEURO: No new numbness, tingling. No new headaches. MSK: No new joint pain or swelling PSYCH: No worsening anxiety or depression Physical Exam: Vitals: 12/28/221942 BP: 108/60 Pulse: 99 Resp: Temp: 97.9 ??F (36.6 ??C) SpO2: 95% GEN: Adult male lying in hospital bed. No acute distress. Emaciated MENTAL STATUS: Alert, oriented x3. Cooperative. HEAD: Normocephalic. Atraumatic. EYES: No scleral icterus, conjunctiva clear. EOMI NOSE: No bleeding or nasal discharge noted THROAT: Moist mucous membranes, no pharyngeal erythema, no sublingual ic NECK: Supple, trachea midline. No JVD noted. CV: Regular rate, no tachycardia. Adequate peripheral perfusion. RESP: Airway patent. No increased respiratory effort. Chest rise equal bilaterally. ABD: Soft, nontender, minimally distended with focal tympany to percussion. No rigidity, guarding, or rebound tenderness. EXT: No cyanosis or edema MSK: No joint swelling or erythema noted. NEURO: Grossly intact. Moves all 4 extremities. SKIN: No rash or skin lesion noted. PSYCH: Appropriate mood and affect. Diagnostic data: BMP: Lab Results Component Value Date NA 135 (L) 12/28/2022 K 4.9 12/28/2022 CL 101 12/28/2022 CO2 28.1 12/28/2022 BUN 35 (H) 12/28/2022 CR 2.26 (H) 12/28/2022 GLU 115 (H) 12/28/2022 CBC: Lab Results Component Value Date HGB 9.1 (L) 12/28/2022 HCT 31.7 (L) 12/28/2022 WBC 10.68 12/28/2022 PLT 201 12/28/2022 Radiology: Radiology Results (Last 30 days) 12/28/[address] ABD+PEL WO CON Final result Impression: IMPRESSION: 1. Findings concerning for sigmoid volvulus, recommend surgical evaluation. No evidence of perforation. 2. Small ascites. 3. Anasarca. 4. Diffuse heterotopic ossification surrounding the total left hip prosthesis. 5. Additional chronic/nonemergent findings as above. Dr. Dari Tovar relayed concern for cecal volvulus via [employer] messaging with Dr. Juanpablo Pandey at 5:48 PM on 12/28/2022 with positive delivery receipt. The provider demonstrated understanding and significance of the findings via returned text acknowledgment. Referred By: Interpreted By: Dari Tovar DO, 12/28/2022 5:28 PM 12/28/22 1158 XR CHEST PA+LAT Final result Impression: IMPRESSION: 1. No acute findings. Ordered By: EVELINE JACINTO Interpreted By: Kirk Lemus MD, 12/28/2022 12:14 PM Assessment/Plan: Patient is a 67-year-old male with multiple severe medical comorbidities admitted for CHF exacerbation. Colorectal surgery consulted for CT findings of sigmoid volvulus. On evaluation he is hemodynamically stable and afebrile. On exam his abdomen soft, minimally distended, and nontender with no peritonitis. Labs reviewed, no leukocytosis or lactic acidosis, of note BNP >5700. CT abdomen/pelviswithout contrast independently reviewed and demonstrates a mildly dilated loop of sigmoid colon with no evidence of wall thickening, free fluid, or free air that would suggest perforation as well as no significant twisting of the mesentery or mesenteric edema. Likely a chronic or transient finding given that he denies any abdominal pain and has been having bowel function. - No plans for surgical intervention at this time - OK for clear liquids, will continue to follow and reassess abdominal exam - Please call if any new abdominal pain, distention or change in his clinical course - Would require at least a colonoscopic detorsion and rectal tube placement if he develops symptoms Staff: Dr. Orlando Bhatti MD RES Cosigned by Taye Perry MD at 12/29/2022 4:09 PM CDT Associated attestation - Taye Perry MD - 12/29/2022 4:09 PM CDT Obie was seen and examined at 20:00 yesterday evening. We were consulted for a possible sigmoid colon volvulus. Though he does have a large loop of sigmoid colon he does not have any mesenteric swirling and is passing flatus. He had a normal BM yesterday. His abdomen is obese but nontender. He was admitted for CHF exacerbation. Agree with Dr. Bhatti's recs and plan as outlined above. * Amauri Pandey MD - 12/28/2022 6:02 PM CDT History of Present Illness: Mr. Sims is a pleasant 67-year-old male seen in the cardiology clinic today for a preoperative cardiac risk assessment prior to undergoing a cervical fusion by Dr. Pond on 01/01/23 at [facility]. He has a history of coronary artery disease, paroxysmal atrial fibrillation s/p PVI/WACA per Dr. Block on 10/24/15 and cardioversion in 03/2016, aortic stenosis s/p mechanical valve replacement in 1999 and bioprosthetic valve replacement 2013, LV dysfunction, mild carotid stenosis, hypertension, hyperlipidemia, type II diabetes, and COPD. ?? Over the past 1-2 months he has [...] He denies any recent fever or chills. ?? Evaluation during the clinic visit included an EKG which confirmed the presence of atrial fibrillation at a rate of 80 beats per minute. ? Recommendations/Plan: Mr. Sims does appear fluid overloaded [...] he can proceed with his elective surgery. ?? I have recommended to Mr. Sims: 1. Congestive Heart Failure. He is edematous throughout [...] proceed to the ER for further evaluation. 2. CAD. He denies any persistent anginal chest pain. His nuclear stress test last January did not reveal any evidence of ischemia. He will continue his current medications. 3. Aortic Valve Replacement. His last echocardiogram demonstrated a well- functioning bioprosthetic aortic valve replacement. He will continue his low- dose aspirin. SBE antibiotic prophylaxis is recommended prior to any dental procedures. 4. Atrial Fibrillation. He remains in atrial fibrillation and is relatively asymptomatic. His heartrate is reasonably controlled with carvedilol. He is anticoagulated with warfarin. He has not yet started his hold for surgery. 5. Hypertension. His blood pressure is reasonably controlled in the office today. 6. Hyperlipidemia. He is currently treated with atorvastatin and denies any side effects. An LDL less than 70 is recommended. His last lipid panel from 02/01/2022 revealed adequate control with total cholesterol 151, LDL 54, HDL 73, triglyceride 119. ?? Further recommendations pending his clinical course. I have encouraged him to contact me in the meantime should he have any questions or problems. ? Medications: Current Outpatient Medications: ??? albuterol sulfate HFA 108 (90 Base) MCG/ACT inhaler, Inhale 2 puffs into the lungs every 4 (four) hours as needed., Disp: , Rfl: ??? allopurinol 300 MG tablet, Take 1 tablet (300 mg total) by mouth daily., Disp: , Rfl: ??? amlodipine 2.5 MG [...] Constipation., Disp: , Rfl: ??? furosemide (LASIX) 80 MG tablet, TAKE 1 1/2 TABLETS (120 MG) DAILY FOR 2 DAYS, THEN TAKE 1 TABLET (80 MG) DAILY (Patient taking differently: Take 1 tablet (80 mg total) by mouth daily. TAKE 1 1/2TABLETS (120 MG) DAILY FOR 2 DAYS, THEN TAKE 1 TABLET (80 MG) DAILY), Disp: 31 tablet, Rfl: 11 ??? gabapentin (NEURONTIN) 400 MG capsule, Take 1 capsule (400 mg total) by mouth. 1 tablet in the morning and 2 tablets at night, Disp: , Rfl: ??? glipiZIDE XL (GLUCOTROL XL) 5 MG 24 hr tablet, 1-2 tablets daily in am, Disp: , Rfl: ??? HYDROcodone-acetaminophen (NORCO) 7.5-325 MG tablet, Take 1 tablet by mouth 2 (two) times dailyas needed., Disp: , Rfl: ??? hydrOXYzine (ATARAX) 50 MG tablet, Take 1 tablet (50 mg total) by mouth 3 (three) times daily. As needed, Disp: , Rfl: ??? insulin detemir (LEVEMIR FLEXPEN) 100 UNIT/ML PEN, Inject into the skin as needed., Disp: , Rfl: ??? JARDIANCE 25 MG tablet, Take 1 tablet (25 mg total) by mouth daily., Disp: , Rfl: ??? metFORMIN 500 MG tablet, Take 1 tablet (500 mg total) by mouth 2 (two) times daily with meals.,Disp: , Rfl: ??? methocarbamol (ROBAXIN) 500 MG tablet, Take 1 tablet (500 mg total) by mouth 2 (two) times a day., Disp: , Rfl: ??? pantoprazole EC 40 [...] Rfl: ??? warfarin (COUMADIN) 1 MG tablet, As directed, Disp: , Rfl: ??? warfarin (COUMADIN) 5 MG tablet, As directed, Disp: , Rfl: Review of patient's allergies indicates: No Known Allergies Past Medical History[]Expand by Default Past Medical History: Diagnosis Date ??? Abnormal ankle brachial index (STELLA) ? Acute on chronic heart failure, unspecified heart failure type (CMS/HCC) ? Anxiety ? Aortic valve stenosis ? Arthritis ? Asthma, mild persistent 04/06/2021 ??? Atrial fibrillation (CMS/HCC) ? s/p PVI/WACA 10/2015 ??? Bilateral leg pain ? Carotid disease, bilateral (CMS/HCC) ? CHF (congestive heart failure) (CMS/HCC) ? Claudication (CMS/HCC) ? COPD (chronic obstructive pulmonary disease) (CMS/HCC) ? Coronary artery disease ? Diabetes mellitus, type II (CMS/HCC) ? Edema 04/19/2018 ?? 2+ pitting ??? History of blood transfusion ? Hyperlipidemia ? Hypertension ? LV dysfunction ? Osteoarthritis ? PAD (peripheral artery disease) (CMS/HCC) ? Pneumonia ? Restless leg syndrome ? S/P aortic valve replacement with bioprosthetic valve 2013 ?? 1999, 2013 ??? SOB (shortness of breath) ? Stroke (CMS/HCC) ? Varicose veins of bilateral lower extremities with other complications ? Weight gain with edema ? Past Surgical History[]Expand by Default Past Surgical History: Procedure Laterality Date ??? APPENDECTOMY ? CARDIAC VALVE REPLACEMENT ?? 1999 ??? CARDIAC VALVE REPLACEMENT ?? 2013 ??? CARDIOVERSION EXTERNAL ?? 10/01/2015 ??? CARDIOVERSION EXTERNAL ?? 04/14/2012 ??? COLONOSCOPY N/A 03/18/2021 ?? COLONOSCOPY (Incomplete) performed by Kilo Navarro MD at [facility] OR ??? COLONOSCOPY N/A 01/27/2022 ?? COLONOSCOPY WITH COLD SNARE POLYPECTOMY performed by Kilo Navarro MD at [facility] OR ??? HIP ARTHROPLASTY Left ? KNEE ARTHROPLASTY Bilateral ? REPAIR ROTATOR CUFF W/ OR W/O ACROMIOPLASTY Left ? USE NEMO+CARDIOVERSION ?? 03/24/2016 ??? XA A-FIB ABLATION ?? 10/23/2015 ?? PVI/WACA ?? Social History []Expand by Default ?? Tobacco Use ??? Smoking status: Former ??? Smokeless tobacco: Former ? Types: Chew Vaping Use ??? Vaping Use: Never used Substance Use Topics ??? Alcohol use: Yes ? Comment: 6 beers per week ??? Drug use: No ?? Family History[]Expand by Default Family History Problem Relation Name Age of Onset ??? TB Mother ? Family Status Relation Name Status ??? Mother ? Father ? Sister ?? Alive ??? Brother ?? Alive ??? MGM ? MGF ? PGM ? PGF ? Review of Systems Constitutional: Positive for weight [...] depression and new or significant memory loss. ?? Vitals Vitals: ?? 12/28/22 1036 12/28/22 1037 BP: 128/74 126/72 Patient Position: Sitting Sitting BP Location: Left arm Right arm Pulse: 80 ?? Weight: 102.1 kg (225 lb) ?? Height: 5' 6 (1.676 m) ? Body mass index is 36.32 kg/m??. ?? Cardiac Exam Rate/Rhythm: Normal rate. An irregularly irregular rhythm present. PMI: Pulses: Dorsalis pedis pulses are 1+ on the right side and 1+ on the left side. Posterior tibial pulses are 1+ on the right side and 1+ on the left side. ?? Heart Sounds: Normal heart sounds. Normal S1 sounds. Normal S2 sounds. No gallop present. No S3. NoS4. Murmurs: No murmur present ?? Physical Exam Constitutional: No distress. Examined in [...] tightness. BLE erythematous with scabs and scaling. Chart reviewed. Hx taken. Pt examined. Mr Sims is well known to me. See full report. IMP: 1. Chronic CHF (systolic/diastolic) -- acute on chronic. 2. RLE ulceration/cellulitis 3. Aortic stenosis -- S/P AVR (2000) and bioprosthesis (2013). 4. Severe pulmonary HTN 5. CAD 6. Hx of atrial fibrillation -- S/P ablation. 7. ALICIA on CKD 8. Carotid artery disease 9. COPD 10. HTN 11. Hyperlipidemia 12. Diabetes mellitus -- type II. 13. Anxiety REC: Agree with initial outlined plans for treatment. Will see him in am tomorrow. ? documented in this encounter Nursing Notes * Randi Bucio RN - 12/29/2022 2:30 PM CDT Tubigrip applied bilaterally from toe to thigh, size F. Obie is sitting up in the chair with his daughter at bedside. She reports he is usually in the recliner with legs dependent. Bilateral below the knee edema is improved. She believes the compression he has at home is similar to LUIS F scotte. Discussed the different types of compression therapy--likely atravel sock compression 10-15 mmhg comes in variety of fabric styles and is usually easily applied.Discussed options within [place], Dr Grace has a clinic in [place] with appointment can followup for edema management. documented in this encounter ED Notes * Fortunato Guzmán MD - 12/28/2022 12:41 PM CDT Images from the original note were not included. Chief Complaint Chief Complaint Patient presents with Leg Swelling Edema- 13 Years Or Older History of Present Illness Patient is a 67-year-old male with a history of atrial fibrillation on anticoagulation, CHF CAD, type 2 diabetes, and peripheral artery disease [facility] leg[facility] and increased weight gain for the past 6 to 8 weeks. He had been treated for cellulitis ofhis bilateral lower extremities by his primary care doctor. Daughter accompanying him noted that patient was on vancomycin, but this was discontinued because of his kidney function. He is currently not on any antibiotics. Patient also has shortness of breath and is on oxygen as needed. Patients daughter notes approximately 15 pound weight gain during this time. He has chronic wounds to his right lower extremity. Medical History ALLERGIES: Review of patient's allergies [...] mouth daily. 02/17/19 Yes [facility] amlodipine 2.5 MG tablet Take 1 tablet (2.5 mg total) by mouth daily. 03/07/19 Yes Jeff Grace MD aspirin 81 MG chewable tablet Chew 1 tablet (81 mg total) by mouth daily. 04/18/14 Yes [facility] atorvastatin 80 MG tablet Take 1 tablet (80 mg total) by mouth nightly at bedtime. 12/31/16 Yes [facility] camphor-menthol (SARNA) lotion Apply topically 2 (two) times a day. Yes GENERICPROVIDER, DEFAULT HISTORY carvedilol (COREG) 3.125 MG tablet Take 1 tablet (3.125 mg total) by mouth 2 (two) times daily. 10/09/22 Yes GENERICPROVIDER, DEFAULT HISTORY furosemide (LASIX) 80 MG tablet TAKE 1 1/2 TABLETS (120 MG) DAILY FOR 2 DAYS, THEN TAKE 1 TABLET (80 MG) DAILY Patient taking differently: Take 1 tablet (80 mg total) by mouth daily. TAKE 1 1/2 TABLETS (120 MG)DAILY FOR 2 DAYS, THEN TAKE 1 TABLET (80 MG) DAILY 11/11/22 Yes Amauri Pandey MD gabapentin (NEURONTIN) 400 MG capsule Take 1 capsule (400 mg total) by mouth. 1 tablet in the morning and 2 tablets at night 12/14/22 Yes GENERICPROVIDER, DEFAULT HISTORY glipiZIDE XL (GLUCOTROL XL) 5 MG 24 hr tablet 1-2 tablets daily in am 09/29/22 Yes GENERICPROVIDER, DEFAULT HISTORY HYDROcodone-acetaminophen (NORCO) 7.5-325 MG tablet Take 1 tablet by mouth 2 (two) times daily as needed. 03/28/22 Yes [facility] hydrOXYzine (ATARAX) 50 MG tablet Take 1 tablet (50 mg total) by mouth 3 (three) times daily. As needed 10/09/22 Yes GENERICPROVIDER, DEFAULT HISTORY insulin detemir (LEVEMIR FLEXPEN) 100 UNIT/ML PEN Inject into the skin as needed. Yes GENERICPROVIDER, DEFAULT HISTORY JARDIANCE 25 MG tablet Take 1 tablet (25 mg total) by mouth daily. 10/31/22 Yes GENERICPROVIDER, DEFAULT HISTORY metFORMIN 500 MG tablet Take 1 tablet (500 mg total) by mouth 2 (two) times daily with meals. Yes [facility] methocarbamol (ROBAXIN) 500 MG tablet Take 1 tablet (500 mg total) by mouth 2 (two) times a day. 11/20/22 Yes GENERICPROVIDER, DEFAULT HISTORY mupirocin (BACTROBAN) 2 % ointment Apply 1 Application topically 2 (two) times daily. 12/14/22 Yes GENERICPROVIDER, DEFAULT HISTORY pantoprazole EC 40 MG tablet Take 1 tablet (40 mg total) by mouth daily. Yes [facility] rOPINIRole (REQUIP) 4 MG tablet Take 1 tablet (4 mg total) by mouth nightly at bedtime. 10/17/22 YesGENERICPROVIDER, DEFAULT HISTORY sertraline 50 MG tablet Take 1 tablet (50 mg total) by mouth daily. 10/03/21 Yes [facility] spironolactone (ALDACTONE) 25 MG tablet Take 1 tablet (25 mg total) by mouth daily. 09/05/22 Yes GENERICPROVIDER, DEFAULT HISTORY traZODone (DESYREL) 100 MG tablet Take 2 tablets (200 mg total) by mouth nightly at bedtime. 03/24/22Yes [facility] TRELEGY ELLIPTA 100-62.5-25 MCG/ACT AEROSOL POWDER, BREATH ACTIVATED Inhale into the lungs daily. 12/23/22 Yes GENERICPROVIDER, DEFAULT HISTORY warfarin (COUMADIN) 5 MG tablet As directed 05/14/22 Yes GENERICPROVIDER, DEFAULT HISTORY docusate sodium 100 MG capsule Take 1 capsule (100 mg total) by mouth as needed for Constipation. [facility] warfarin (COUMADIN) 1 MG tablet As directed 10/22/22 GENERICPROVIDER, DEFAULT HISTORY PAST MEDICAL HISTORY: Past Medical History: Diagnosis Date Abnormal ankle brachial index (STELLA) Acute on chronic heart failure, unspecified heart failure type (CMS/HCC) Anxiety Aortic valve stenosis Arthritis Asthma, mild persistent 04/06/2021 Atrial fibrillation ([facility]) s/p PVI/WACA 10/2015 Bilateral leg pain Carotid disease, bilateral ([facility]) CHF (congestive heart failure) ([facility]) Claudication ([facility]) COPD (chronic obstructive pulmonary disease) ([facility]) Coronary artery disease Diabetes mellitus, type II ([facility]) Edema 04/19/2018 2+ pitting History of blood transfusion Hyperlipidemia Hypertension LV dysfunction Osteoarthritis PAD (peripheral artery disease) ([facility]) Pneumonia Restless leg syndrome S/P aortic valve replacement with bioprosthetic valve 2013 1999, 2013 SOB (shortness of breath) Stroke ([facility]) Varicose veins of bilateral lower extremities with other complications Weight gain with edema PAST SURGICAL HISTORY: Past Surgical History: Procedure Laterality Date APPENDECTOMY CARDIAC VALVE REPLACEMENT 1999 CARDIAC VALVE REPLACEMENT 2013 CARDIOVERSION EXTERNAL 10/01/2015 CARDIOVERSION EXTERNAL 04/14/2012 COLONOSCOPY N/A 03/18/2021 COLONOSCOPY (Incomplete) performed by Kilo Navarro MD at [facility] OR COLONOSCOPY N/A 01/27/2022 COLONOSCOPY WITH COLD SNARE POLYPECTOMY performed by Kilo Navarro MD at [facility] OR HIP ARTHROPLASTY Left KNEE ARTHROPLASTY [...] Systems Review of Systems Constitutional: Negative for activity change, fatigue and fever. HENT: Negative for congestion, ear discharge, ear pain, rhinorrhea and sore throat. Eyes: Negative for pain, redness and itching. Respiratory: Positive for shortness of breath. Negative for cough. Cardiovascular: Positive for leg swelling. Negative for chest pain and palpitations. Gastrointestinal: Negative for abdominal pain, diarrhea, nausea and vomiting. Genitourinary: Negative for decreased urine volume, difficulty urinating, hematuria and urgency. Musculoskeletal: Negative for back pain, myalgias and neck pain. Skin: Positive for color change and wound. Negative for rash. Neurological: Negative for dizziness, weakness, numbness and headaches. Psychiatric/Behavioral: Negative for agitation, behavioral problems and confusion. Physical Exam Filed Vitals: 12/28/22 1210 12/28/22 1230 12/28/22 1300 12/28/22 1400 BP: 124/79 (!) 122/92 121/68 124/79 Pulse: 92 89 96 95 Resp: 8 16 18 19 Temp: TempSrc: SpO2: 98% 96% 94% 96% Weight: Height: Physical Exam Vitals and nursing note reviewed. Constitutional: General: He is not in acute distress. Appearance: Normal appearance. He is obese. He is not ill-appearing, toxic- appearing or diaphoretic. HENT: Head: Normocephalic and atraumatic. Right Ear: External ear normal. Left Ear: External ear normal. Nose: Nose normal. Mouth/Throat: Mouth: Mucous membranes are moist. Pharynx: Oropharynx is clear. Eyes: Extraocular Movements: Extraocular movements intact. Conjunctiva/sclera: Conjunctivae normal. Pupils: Pupils are equal, round, and reactive to light. Cardiovascular: Rate and Rhythm: Normal rate and regular rhythm. Pulses: Normal pulses. Heart sounds: Normal heart sounds. No murmur heard. Pulmonary: Effort: Pulmonary effort is normal. No respiratory distress. Breath sounds: Normal breath sounds. No wheezing or rales. Abdominal: General: Abdomen is flat. There is no distension. Palpations: Abdomen is soft. Tenderness: There is no abdominal tenderness. Musculoskeletal: General: No deformity. Normal range of motion. Cervical back: Normal range of motion. Right lower leg: Edema present. Left lower leg: Edema present. Comments: Patient has bilateral lower extremity edema to the hips bilaterally. 2+ dorsalis pedis pulses bilaterally Skin: General: Skin is warm and dry. Capillary Refill: Capillary refill takes less than 2 seconds. Findings: Erythema present. Comments: Chronic venous stasis changes of bilateral lower extremities. His left foot appears normal in color. His right foot is erythematous with increased warmth. He also has chronic wounds to thatfoot. Neurological: General: No focal deficit present. Mental Status: He is alert and oriented to person, place, and time. Mental status is at baseline. Cranial Nerves: No cranial nerve deficit. Psychiatric: Mood and Affect: Mood normal. Behavior: Behavior normal. Thought Content: Thought content normal. Judgment: Judgment normal. Diagnostic Studies / Procedures ELECTROCARDIOGRAMS: Results for orders placed or performed during the hospital encounter of 12/28/22 ECG 12 lead Narrative [facility]-ED Test Date: 2022-12-28 Pat Name: OBIE SIMS Department: 70 Room: Gender: Male Director Digital Advertising: ISABEL : 1955 Requested By: EVELINE JACINTO Order Number: [id number] Reading MD: Measurements Intervals [place] Rate: 90 P: IN: 0 QRS: -35 QRSD: 132 T: 136 QT: 388 QTc: 476 Interpretive Statements ATRIAL FIBRILLATION MARKED LEFT AXIS DEVIATION [QRS AXIS < -30] LEFT BUNDLE BRANCH BLOCK [120+ ms QRS DURATION, 80+ ms Q/S IN V1/V2, 85+ ms R IN I/aVL/V5/V6] LABORATORY STUDIES: Results for orders placed or performed during the hospital encounter of 12/28/22 CBC W/DIFF AUTOMATED Result Value Ref Range WBC 10.68 4.00 - 10.80 x10'3/uL RBC 3.95 (L) 4.50 - 6.10 x10'6/uL HGB 9.1 (L) 13.0 - 18.0 G/DL HCT 31.7 (L) 37.0 - 52.0 % MCV 80.3 78.0 - 100.0 FL MCH 23.0 (L) 27.0 - 31.0 PG MCHC 28.7 (L) 33.0 - 36.0 G/DL RDW 18.3 (H) 11.5 - 14.5 % PLT 201 150 - 350 x10'3/uL MPV 11.1 (H) 7.4 - 10.4 FL ABS. NEUTROPHILS 7.71 1.60 - 8.30 x10'3/uL ABS. LYMPHOCYTES 1.48 0.80 - 4.70 x10'3/uL ABS. MONOCYTES 1.18 0.00 - 1.50 x10'3/uL ABS. EOSINOPHILS 0.20 0.00 - 0.40 x10'3/uL ABS. BASOPHILS 0.07 0.00 - 0.20 x10'3/uL ABS. IMMATURE GRANULOCYTES 0.04 (H) 0.00 - 0.03 x10'3/uL ABS. NUCLEATED RBC'S 0.00 0.0 x10'3/uL BASIC METABOLIC PANEL Result Value Ref Range SODIUM S/P/B 135 (L) 136 - 145 MMOL/L POTASSIUM S/P/B 4.9 3.5 - 5.1 MMOL/L CHLORIDE S/P/B 101 98 - 107 MMOL/L CO2 28.1 21.0 - 32.0 MMOL/L GLUCOSE 115 (H) 74 - 106 MG/DL BUN 35 (H) 7 - 18 MG/DL CREATININE S/P/B 2.26 (H) 0.70 - 1.30 MG/DL CALCIUM 9.6 8.5 - 10.1 MG/DL ANION GAP 5.9 5.0 - 15.0 MMOL/L OSMOLALITY (CALC) 289 MOSM/KG GFR ESTIMATE 31 (L) >90 ML/MIN/1.73 M2 GFR NOTES GFR REFERENCES: MAGNESIUM Result Value Ref Range MAGNESIUM 2.3 1.6 - 2.6 MG/DL PRO-BRAIN NATRIURETIC PEPTIDE Result Value Ref Range PRO-B TYPE NATRIURETIC PEPTIDE 5,795 (H) <125 PG/ML TROPONIN, QUANT Result Value Ref Range TROPONIN I HIGH SENSITIVITY 40 0 - 78 ng/L SED RATE, ERYTHROCYTE (ESR) Result Value Ref Range ESR 115 (H) 0 - 15 MM/HR C-REACTIVE PROTEIN Result Value Ref Range C-REACTIVE PROTEIN 1.85 (H) <0.80 mg/dL PROCALCITONIN (PCT) Result Value Ref Range Procalcitonin 0.28 <0.50 NG/ML PROTIME/INR, VENOUS Result Value Ref Range PROTIME 31.2 (H) 9.4 - 12.5 SEC INR 2.7 (H) 0.8 - 1.1 HEPATIC FUNCTION PANEL Result Value Ref Range BILIRUBIN TOTAL S/P/B 1.0 0.2 - 1.0 MG/DL BILIRUBIN DIRECT S/P/B 0.3 (H) 0.0 - 0.2 MG/DL ALKALINE PHOSPHATASE S/P/B 133 (H) 45 - 115 U/L AST 31 15 - 37 U/L ALT 24 16 - 61 U/L TOTAL PROTEIN S/P/B 8.3 (H) 6.4 - 8.2 G/DL ALBUMIN S/P/B 3.3 (L) 3.4 - 5.0 G/DL RBC MORPHOLOGY Result Value Ref Range RBC MORPHOLOGY ANISOCYTOSIS IMAGING STUDIES XR CHEST PA+LAT Final Result by User, [id number] (12/28 121) Patient name: OBIE SIMS Examination: Chest x-ray 2 view Exam time: 12/28/2022 11:56 AM Clinical history: 67 years Male. Shortness of breath Comparison: 02/04/2022 Technique: Frontal and lateral views of the chest were obtained. Findings: No parenchymal consolidation. Blunting of right costophrenic angle. No pneumothorax. Cardiomegaly unchanged. Atherosclerosis. Old rib fractures. Sternotomy wires, mediastinal clips, aortic valve prosthesis again identified. IMPRESSION: 1. No acute findings. Ordered By: EVELINE JACINTO Interpreted By: Kirk Lemus MD, 12/28/2022 12:14 PM ED Course / Medical Decision Making Patient is a 67-year-old male with a history of atrial fibrillation on anticoagulation, CHF CAD, type 2 diabetes, and peripheral artery disease presenting with bilateral lower leg swelling, erythema of his right foot, and chronic wounds to the right foot. Plan evaluate patient for CHF exacerbation and cellulitis of the right lower extremity. Patient's work-up was positive for elevated BNP in the 5000 along with elevated ESR and CRP. Administered vancomycin and Zosyn. Administered 60 mg IV Lasix. Admitted patient to [facility], who accepted the patient for admission. Medical Decision Making Amount and/or Complexity of Data Reviewed Independent Historian: caregiver Details: Daughter Labs: ordered. Radiology: ordered. ECG/medicine tests: ordered. ED Course as of 12/28/22 1432 WedDecember 28, 20[address] [facility], who accepted patient for admission. He requested that I notify the patient's commercial relief driver, Dr. Pandey [FV] [address] Pandey [facility], who will see patient while he is in the hospital. [FV] ED Course User Index [FV] Fortunato Guzmán MD Clinical Impression Acute exacerbation of CHF (congestive heart failure) (CMS/HCC) (Primary) Cellulitis Disposition: Admit Cosigned by Josue Lagos MD at 01/06/2023 12:54 PM CDT Associated attestation - Josue Lagos MD - 01/06/2023 12:54 PM CDT Teaching Physician - I, JOSUE LAGOS MD, performed a History and Physical examination of the patient and discussed the management with the resident. I reviewed the Resident's note and agree with the findings and plan of care, except as I have documented. Teaching physician supervised resident in person. * Eveline Jacinto NP - 12/28/2022 11:51 AM CDT Medical Screening Exam Patient: Obie Sims : 1955 Encounter Date: 12/28/2022 Chief Complaint: Chief Complaint Patient presents with Leg Swelling Edema- 13 Years Or Older History of Present Illness: HPI 67 y/o M who presents to the ER from [facility] with complaints of lower leg swelling x6-8 weeks and increased weight gain. Hx of CHF and commercial relief driver was going to attempt to manage outpatient but he is having weakness and fatigue and sent him in for evaluation Vitals: Filed Vitals: 12/28/22 1148 BP: 91/48 Pulse: 93 Resp: 20 Temp: 98.4 ??F (36.9 ??C) TempSrc: Oral SpO2: 90% Weight: 102.7 kg (226 lb 6.6 oz) Height: 5' 6 (1.676 m) Brief Physical Exam: Generalized Appearance: No apparent distress. Skin: Warm and dry. Head: Normocephalic Chest and Respiratory: Airway patent. Neurologic: Alert and oriented x 3. Obie Sims was assessed while in the waiting room. Appropriate orders were entered based on assessment pending placement in ED room. Eveline Jacinto NP 12/28/2022 11:53 AM Eveline Jacinto NP 12/28/22 1153 Cosigned by Attila Urias MD at 12/29/2022 7:57 AM CDT * Luba Snow RN - 12/28/2022 11:40 AM CDT Pt to ED via POV with c/o having generalized edema and swelling in his BLE for 6 to 8 weeks. He wasseen at his PCP today for the same and was referred here. He is supposed to have surgery on Wednesday on his spine but is not able to at this time due to the edema. He is unable to walk or lay flat so he is in a sitting position most of the time. He is on blood thinners and lasix at this time. documented in this encounter Plan of Treatment Upcoming Encounters Date Type Department Care Team (Late st Contact Info) Description 09/25/2024 2:00 PM RADIATOR MECHANIC Appointment [facility] [address] [place] [address] Zayra Powell, BOX OFFICE AGENT [address] [place] [address] 10/16/2024 3:30 PM RADIATOR MECHANIC Office Visit [facility]-[address] [place] [id number] Brit Younger MD [address] [place] [phone] documented as of this encounter Procedures Procedure Name Priority Date/Time Associated Diagnosis Comments POCT GLUCOSE - VALLECILLO DOCKED DEVICE Routine 01/04/2023 11:46 AM CDT CORONAVIRUS (COVID-19) ANTIGEN Nurse Collected Priority 01/04/2023 9:34 AM CDT POCT GLUCOSE - VALLECILLO DOCKED DEVICE Routine 01/04/2023 5:51 AM CDT PROTHROMBIN TIME, VENOUS Routine 01/04/2023 5:15 AM CDT BASIC METABOLIC PANEL Routine 01/04/2023 5:15 AM CDT CBC W/DIFF AUTOMATED Routine 01/04/2023 5:15 AM CDT MAGNESIUM Routine 01/04/2023 5:15 AM CDT POCT GLUCOSE - VALLECILLO DOCKED DEVICE Routine 01/03/2023 8:41 PM CDT POCT GLUCOSE - VALLECILLO DOCKED DEVICE Routine 01/03/2023 4:14 PM CDT POCT GLUCOSE - VALLECILLO DOCKED DEVICE Routine 01/03/2023 11:05 AM CDT POCT GLUCOSE - VALLECILLO DOCKED DEVICE Routine 01/03/2023 5:45 AM CDT RBC MORPHOLOGY Routine 01/03/2023 4:51 AM CDT PROTHROMBIN TIME, VENOUS Routine 01/03/2023 4:51 AM CDT BASIC METABOLIC PANEL Routine 01/03/2023 4:51 AM CDT CBC W/DIFF AUTOMATED Routine 01/03/2023 4:51 AM CDT MAGNESIUM Routine 01/03/2023 4:51 AM CDT POCT GLUCOSE - VALLECILLO DOCKED DEVICE Routine 01/02/2023 8:43 PM CDT POCT GLUCOSE - VALLECILLO DOCKED DEVICE Routine 01/02/2023 4:26 PM CDT POCT GLUCOSE - VALLECILLO DOCKED DEVICE Routine 01/02/2023 11:33 AM CDT RBC MORPHOLOGY Routine 01/02/2023 6:55 AM CDT PROTHROMBIN TIME, VENOUS Routine 01/02/2023 6:55 AM CDT BASIC METABOLIC PANEL Routine 01/02/2023 6:55 AM CDT CBC W/DIFF AUTOMATED Routine 01/02/2023 6:55 AM CDT MAGNESIUM Routine 01/02/2023 6:55 AM CDT POCT GLUCOSE - VALLECILLO DOCKED DEVICE Routine 01/02/2023 6:26 AM CDT CULTURE RESPIRATORY W/ GRAM STAIN Nurse Collected Priority 01/02/2023 1:14 AM CDT POCT GLUCOSE - VALLECILLO DOCKED DEVICE Routine 01/01/2023 7:51 PM CDT POCT GLUCOSE - VALLECILLO DOCKED DEVICE Routine 01/01/2023 5:12 PM CDT POCT GLUCOSE - VALLECILLO DOCKED DEVICE Routine 01/01/2023 11:41 AM CDT RBC MORPHOLOGY Routine 01/01/2023 9:44 AM CDT BASIC METABOLIC PANEL Routine 01/01/2023 9:44 AM CDT CBC W/DIFF AUTOMATED Routine 01/01/2023 9:44 AM CDT MAGNESIUM Routine 01/01/2023 9:44 AM CDT POCT GLUCOSE - VALLECILLO DOCKED DEVICE Routine 01/01/2023 6:15 AM CDT PROTHROMBIN TIME, VENOUS Routine 01/01/2023 4:56 AM CDT POCT GLUCOSE - VALLECILLO DOCKED DEVICE Routine 12/31/2022 7:49 PM CDT POCT GLUCOSE - VALLECILLO DOCKED DEVICE Routine 12/31/2022 4:48 PM CDT POCT GLUCOSE - VALLECILLO DOCKED DEVICE Routine 12/31/2022 11:31 AM CDT POCT GLUCOSE - VALLECILLO DOCKED DEVICE Routine 12/31/2022 6:23 AM CDT RBC MORPHOLOGY Routine 12/31/2022 5:28 AM CDT PROTHROMBIN TIME, VENOUS Routine 12/31/2022 5:28 AM CDT BASIC METABOLIC PANEL Routine 12/31/2022 5:28 AM CDT CBC W/DIFF AUTOMATED Routine 12/31/2022 5:28 AM CDT MAGNESIUM Routine 12/31/2022 5:28 AM CDT POCT GLUCOSE - VALLECILLO DOCKED DEVICE Routine 12/30/2022 8:12 PM CDT POCT GLUCOSE - VALLECILLO DOCKED DEVICE Routine 12/30/2022 4:59 PM CDT POCT GLUCOSE - VALLECILLO DOCKED DEVICE Routine 12/30/2022 11:22 AM CDT RBC MORPHOLOGY Routine 12/30/2022 10:34 AM CDT BASIC METABOLIC PANEL Routine 12/30/2022 10:34 AM CDT CBC W/DIFF AUTOMATED Routine 12/30/2022 10:34 AM CDT MAGNESIUM Routine 12/30/2022 10:34 AM CDT POCT GLUCOSE - VALLECILLO DOCKED DEVICE Routine 12/30/2022 5:58 AM CDT POCT GLUCOSE - VALLECILLO DOCKED DEVICE Routine 12/30/2022 5:10 AM CDT PROTHROMBIN TIME, VENOUS Routine 12/30/2022 5:01 AM CDT VANCOMYCIN Routine 12/30/2022 5:01 AM CDT POCT GLUCOSE - VALLECILLO DOCKED DEVICE Routine 12/29/2022 7:54 PM CDT POCT GLUCOSE - VALLECILLO DOCKED DEVICE Routine 12/29/2022 3:55 PM CDT USE ECHOCARDIOGRAM W CON STAT 12/29/2022 11:54 AM CDT POCT GLUCOSE - VALLECILLO DOCKED DEVICE Routine 12/29/2022 11:11 AM CDT POCT GLUCOSE - VALLECILLO DOCKED DEVICE Routine 12/29/2022 8:11 AM CDT POCT GLUCOSE - VALLECILLO DOCKED DEVICE Routine 12/29/2022 6:47 AM CDT URINE BACTERIA CULTURE Nurse Collected Priority 12/29/2022 6:33 AM CDT POCT GLUCOSE - VALLECILLO DOCKED DEVICE Routine 12/29/2022 6:29 AM CDT HC URINALYSIS AUTO W/MICRO Nurse Collected Priority 12/29/2022 6:23 AM CDT PROTHROMBIN TIME, VENOUS Routine 12/29/2022 4:03 AM CDT BASIC METABOLIC PANEL Routine 12/29/2022 4:03 AM CDT CBC W/DIFF AUTOMATED Routine 12/29/2022 4:03 AM CDT THYROID STIM HORMONE TSH Routine 12/29/2022 4:03 AM CDT MAGNESIUM Routine 12/29/2022 4:03 AM CDT POCT GLUCOSE - VALLECILLO DOCKED DEVICE Routine 12/28/2022 11:10 PM CDT POCT GLUCOSE - VALLECILLO DOCKED DEVICE Routine 12/28/2022 10:10 PM CDT POCT GLUCOSE - VALLECILLO DOCKED DEVICE Routine 12/28/2022 9:39 PM CDT LACTIC ACID TIMED 12/28/2022 7:06 PM CDT POCT GLUCOSE - VALLECILLO DOCKED DEVICE Routine 12/28/2022 5:[address] ABD+PEL WO CON STAT 12/28/2022 5:1 9 PM CDT CULTURE, BACTERIA, BLOOD STAT 12/28/2022 12:51 PM CDT PROCALCITONIN (PCT) STAT 12/28/2022 1 2:45 PM CDT SED RATE, ERYTHROCYTE (ESR) STAT 12/28/2022 12:45 PM CDT PROTHROMBIN TIME, VENOUS STAT 12/28/2022 12:45 PM CDT CULTURE, BACTERIA, BLOOD STAT 12/28/2022 12:45 PM CDT PRO-BRAIN NATRIURETIC PEPTIDE STAT 12/28/2022 12:17 PM CDT RBC MORPHOLOGY STAT 12/28/2022 12:17 PM CDT BASIC METABOLIC PANEL STAT 12/28/2022 12:17 PM CDT HEPATIC FUNCTION PANEL STAT 12/28/2022 12:17 PM CDT C-REACTIVE PROTEIN STAT 12/28/2022 12 :17 PM CDT CBC W/DIFF AUTOMATED STAT 12/28/2022 12:17 PM CDT TROPONIN, QUANT STAT 12/28/2022 12:17 PM CDT MAGNESIUM STAT 12/28/2022 12:17 PM CDT ECG 12-LEAD STAT 12/28/2022 12:15 PM CDT XR CHEST PA+LAT STAT 12/28/2022 11:58 AM CDT documented in this encounter Results * (ABNORMAL) POCT glucose (01/04/2023 11:46 AM CDT) GLUCOSE POC 192(H) 70 - 109 01/04/2023 12:05 PM CDT [facility] 01/04/2023 11:4 6 AM CDT Juanpablo Pandey MD POCT ORDERABLES - DEVICE Fin al Result [facility] [address] [place] [address], [phone] * CORONAVIRUS (COVID-19) ANTIGEN (01/04/2023 9:34 AM CDT) Pathologist [facility] CORONAVIRUS ANTIGEN IA NEGATIVE NEGATIVE 01/04/2023 10:11 AM CDT [facility] Comment: NEGATIVE RESULTS SHOULD BE TREATED PRESUMPTIVE AND CONFIRMED WITH A MOLECULAR ASSAY IF NECESSARY FOR PATIENT MANAGEMENT. NEGATIVE RESULTS DO NOT RULE OUT COVID 19 AND SHOULD NOT BE USED THE SOLE BASIS FOR TREATMENT OR PATIENT MANAGEMENT DECISIONS, INCLUDING INFECTION CONTROL DECISIONS. NEGATIVE RESULTS SHOULD BE CONSIDERED IN THE CONTEXT OF A PATIENT'S RECENT EXPOSURES, HISTORY AND THE PRESENCE OF CLINICAL SIGNS AND SYMPTOMS CONSISTENT WITH COVID 19. THIS TEST HAS BEEN AUTHORIZED BY THE FDA UNDER AN EMERGENCY USE AUTHORIZATION (EUA) FOR USE BY AUTHORIZED LABORATORIES. SPECIMEN TYPE NASAL 01/04/2023 9:34 AM CDT [facility] NASAL NASAL STRUCTURE / Unknown 01/04/2023 9:34 AM CDT Juanpablo Pandey MD MICROBIOLOGY - GENERAL ORDER BAKARI Final Result Performing Organization Address [facility] Co de Phone Number [facility] [address] [place] [address], [phone] * (ABNORMAL) POCT glucose (01/04/2023 5:51 AM CDT) GLUCOSE POC 131(H) 70 - 109 01/04/2023 6:17 AM CDT [facility] 01/04/2023 5:51 AM CDT Juanpablo Pandey MD POCT ORDERABLES - DEVICE Fin al Result Performing Organization Address [facility] de Phone Number [facility] [address] [place] [address], [phone] * (ABNORMAL) PROTIME/INR, VENOUS - Daily (01/04/2023 5:15 AM CDT) PROTIME 17.6(H) 9.4 - 12.5 SEC 01/04/2023 5:50 AM CDT [facility] INR 1.6(H) 0.8 - 1.1 01/04/2023 5:50 AM CDT [facility] 01/04/2023 5:15 AM CDT Juanpablo Pandey MD LABORATORY Final Result Performing Organization Address [facility] Co de Phone Number [facility] [address] [place] [address], [phone] * MAGNESIUM (01/04/2023 5:15 AM CDT) MAGNESIUM 2.6 1.6 - 2.6 MG/DL 01/04/2023 5:54 AM CDT [facility] 01/04/2023 5:15 AM CDT Juanpablo Pandey MD LABORATORY Final Result [facility] [address] [place] [address], [phone] * (ABNORMAL) CBC W/DIFF AUTOMATED (01/04/2023 5:15 AM CDT) WBC 8.12 4.00 - 10.80 x10'3/uL 01/04/2023 5:27 AM CDT [facility] RBC 3.63(L) 4.50 - 6.10 x10'6/uL 01/04/2023 5:27 AM CDT [facility] HGB 8.5(L) 13.0 - 18.0 G/DL 01/04/2023 5:27 AM CDT [facility] HCT 28.9(L) 37.0 - 52.0 % 01/04/2023 5:27 AM CDT [facility] MCV 79.6 78.0 - 100.0 FL 01/04/2023 5:27 AM CDT [facility] MCH 23.4(L) 27.0 - 31.0 PG 01/04/2023 5:27 AM CDT [facility] MCHC 29.4(L) 33.0 - 36.0 G/DL 01/04/2023 5:27 AM CDT [facility] RDW 18.6(H) 11.5 - 14.5 % 01/04/2023 5:27 AM CDT [facility] PLT 175 150 - 350 x10'3/uL 01/04/2023 5:27 AM CDT [facility] MPV 10.2 7.4 - 10.4 FL 01/04/2023 5:27 AM CDT [facility] ABS. NEUTROPHILS 5.26 1.60 - 8.30 x10'3/uL 01/04/2023 5:27 AM CDT [facility] ABS. LYMPHOCYTES 1.44 0.80 - 4.70 x10'3/uL 01/04/2023 5:27 AM CDT [facility] ABS. MONOCYTES 1.05 0.00 - 1.50 x10'3/uL 01/04/2023 5:27 AM CDT [facility] ABS. EOSINOPHILS 0.26 0.00 - 0.40 x10'3/uL 01/04/2023 5:27 AM CDT [facility] ABS. BASOPHILS 0.08 0.00 - 0.20 x10'3/uL 01/04/2023 5:27 AM CDT [facility] ABS. IMMATURE GRANULOCYTES 0.03 0.00 - 0.03 x10'3/uL 01/04/2023 5:27 AM CDT [facility] ABS. NUCLEATED RBC'S 0.00 0.0 x10'3/uL 01/04/2023 5:27 AM CDT [facility] 01/04/2023 5:15 AM CDT Juanpablo Paresh Pandey MD LABORATORY Final Result [facility] [address] [place] [address], [phone] * (ABNORMAL) BASIC METABOLIC PANEL (01/04/2023 5:15 AM CDT) SODIUM S/P/B 131(L) 136 - 145 MMOL/L 01/04/2023 5:54 AM CDT [facility] POTASSIUM S/P/B 4.4 3.5 - 5.1 MMOL/L 01/04/2023 5:54 AM CDT [facility] CHLORIDE S/P/B 98 98 - 107 MMOL/L 01/04/2023 5:54 AM CDT [facility] CO2 30.2 21.0 - 32.0 MMOL/L 01/04/2023 5:54 AM CDT [facility] GLUCOSE 124(H) 74 - 106 MG/DL 01/04/2023 5:54 AM CDT [facility] BUN 44(H) 7 - 18 MG/DL 01/04/2023 5:54 AM CDT [facility] CREATININE S/P/B 2.14(H) 0.70 - 1.30 MG/DL 01/04/2023 5:54 AM CDT [facility] CALCIUM S/P/B 9.5 8.5 - 10.1 MG/DL 01/04/2023 5:54 AM CDT [facility] ANION GAP 2.8(L) 5.0 - 15.0 MMOL/L 01/04/2023 5:54 AM CDT [facility] OSMOLALITY (CALC) 285 MOSM/KG 023 5:54 AM CDT [facility] Comment:REFERENCE RANGE NOT ESTABLISHED GFR ESTIMATE 33(L) >90 ML/MIN/1. 73 M2 01/04/2023 5:54 AM CDT [facility] GFR NOTES GFR REFERENCE S: 01/04/2023 5:54 AM T [facility] Comment: THE ESTIMATED GFR IS [...] ml/min/1.73 m2 G5,KIDNEY FAILURE: <15 ml/min/1.73 m2 01/04/2023 5:15 AM CDT Juanpablo Paresh Pandey MD LABORATORY Final Result [facility] [address] [place] [address], [place] [phone] * (ABNORMAL) POCT glucose (01/03/2023 8:41 PM CDT) GLUCOSE POC 199(H) 70 - 109 01/03/2023 11:06 PM CDT [facility] 01/03/2023 8:41 PM CDT us Juanpablo Pandey MD POCT ORDERABLES - DEVICE Fin al Result Performing Organization Address [facility] de Phone Number [facility] [address] [place] [address], [place] [phone] * (ABNORMAL) POCT glucose (01/03/2023 4:14 PM CDT) GLUCOSE POC 167(H) 70 - 109 01/03/2023 4:26 PM CDT [facility] 01/03/2023 4:14 PM CDT us Juanpablo Pandey MD POCT ORDERABLES - DEVICE Fin al Result Performing Organization Address [facility] de Phone Number [facility] [address] [place] [address], [place] [phone] * (ABNORMAL) POCT glucose (01/03/2023 11:05 AM CDT) GLUCOSE POC 149(H) 70 - 109 01/03/2023 11:16 AM CDT [facility] 01/03/2023 11:0 5 AM CDT us Juanpablo Pandey MD POCT ORDERABLES - DEVICE Fin al Result Performing Organization Address [facility] Co de Phone Number [facility] [address] [place] [address], [place] [phone] * (ABNORMAL) POCT glucose (01/03/2023 5:45 AM CDT) GLUCOSE POC 129(H) 70 - 109 01/03/2023 6:17 AM CDT [facility] 01/03/2023 5:45 AM CDT Juanpablo Pandey MD POCT ORDERABLES - DEVICE Fin al Result Performing Organization Address [facility]/ZIP Co de Phone Number [facility] [address] [place] [address], [place] [phone] * RBC MORPHOLOGY (01/03/2023 4:51 AM CDT) Pathologist [facility] RBC MORPHOLOGY ANISOCYTOSIS 01/04/20 6:08 AM CDT [facility] Comment: SLIGHT HYPOCHROMASIA SLIGHT MICROCYTOSIS SLIGHT POIKILOCYTOSIS SLIGHT OVALOCYTES [employer]ARGET CELLS TEARDROP CELLS 01/03/2023 4:51 AM CDT Juanpablo Pandey MD LABORATORY Final Result Performing Organization Address [facility]/ZIP Co de Phone Number [facility] [address] [place] [address], [place] [phone] * (ABNORMAL) PROTIME/INR, VENOUS - Daily (01/03/2023 4:51 AM CDT) PROTIME 18.0(H) 9.4 - 12.5 SEC 01/03/2023 5:39 AM CDT [facility] INR 1.6(H) 0.8 - 1.1 01/03/2023 5:39 AM CDT [facility] 01/03/2023 4:51 AM CDT Juanpablo Pandey MD LABORATORY Final Result Performing Organization Address City/[facility]/ZIP Co de Phone Number [facility] [address] [place] [address], [phone] * (ABNORMAL) MAGNESIUM (01/03/2023 4:51 AM CDT) MAGNESIUM 2.7(H) 1.6 - 2.6 MG/DL 01/03/2023 5:42 AM CDT [facility] 01/03/2023 4:51 AM CDT Juanpablo Pandey MD LABORATORY Final Result Performing Organization Address [facility] Co de Phone Number [facility] [address] [place] [address], [phone] * (ABNORMAL) CBC W/DIFF AUTOMATED (01/03/2023 4:51 AM CDT) WBC 8.91 4.00 - 10.80 x10'3/uL 01/03/2023 5:17 AM CDT [facility] RBC 3.65(L) 4.50 - 6.10 x10'6/uL 01/03/2023 5:17 AM CDT [facility] HGB 8.5(L) 13.0 - 18.0 G/DL 01/03/2023 5:17 AM CDT [facility] HCT 29.8(L) 37.0 - 52.0 % 01/03/2023 5:17 AM CDT [facility] MCV 81.6 78.0 - 100.0 FL 01/03/2023 5:17 AM CDT [facility] MCH 23.3(L) 27.0 - 31.0 PG 01/03/2023 5:17 AM CDT [facility] MCHC 28.5(L) 33.0 - 36.0 G/DL 01/03/2023 5:17 AM CDT [facility] RDW 18.7(H) 11.5 - 14.5 % 01/03/2023 5:17 AM CDT [facility] PLT 158 150 - 350 x10'3/uL 01/03/2023 5:17 AM CDT [facility] MPV 10.0 7.4 - 10.4 FL 01/03/2023 5:17 AM CDT [facility] ABS. NEUTROPHILS 5.54 1.60 - 8.30 x10'3/uL 01/03/2023 5:17 AM CDT [facility] ABS. LYMPHOCYTES 1.65 0.80 - 4.70 x10'3/uL 01/03/2023 5:17 AM CDT [facility] ABS. MONOCYTES 1.29 0.00 - 1.50 x10'3/uL 01/03/2023 5:17 AM CDT [facility] ABS. EOSINOPHILS 0.31 0.00 - 0.40 x10'3/uL 01/03/2023 5:17 AM CDT [facility] ABS. BASOPHILS 0.07 0.00 - 0.20 x10'3/uL 01/03/2023 5:17 AM CDT [facility] ABS. IMMATURE GRANULOCYTES 0.05(H) 0.00 - 0.03 x10'3/uL 01/03/2023 5:17 AM CDT [facility] ABS. NUCLEATED RBC'S 0.00 0.0 x10'3/uL 01/03/2023 5:17 AM CDT [facility] 01/03/2023 4:51 AM CDT us Juanpablo Pandey MD LABORATORY Final Result [facility] [address] [place] [address], [phone] * (ABNORMAL) BASIC METABOLIC PANEL (01/03/2023 4:51 AM CDT) SODIUM S/P/B 130(L) 136 - 145 MMOL/L 01/03/2023 5:42 AM CDT [facility] POTASSIUM S/P/B 4.7 3.5 - 5.1 MMOL/L 01/03/2023 5:42 AM CDT [facility] CHLORIDE S/P/B 96(L) 98 - 107 MMOL/L 01/03/2023 5:42 AM CDT [facility] CO2 31.8 21.0 - 32.0 MMOL/L 01/03/2023 5:42 AM CDT [facility] GLUCOSE 112(H) 74 - 106 MG/DL 01/03/2023 5:42 AM CDT [facility] BUN 47(H) 7 - 18 MG/DL 01/03/2023 5:42 AM CDT [facility] CREATININE S/P/B 2.20(H) 0.70 - 1.30 MG/DL 01/03/2023 5:42 AM CDT [facility] CALCIUM S/P/B 9.6 8.5 - 10.1 MG/DL 01/03/2023 5:42 AM CDT [facility] ANION GAP 2.2(L) 5.0 - 15.0 MMOL/L 01/03/2023 5:42 AM CDT [facility] OSMOLALITY (CALC) 283 MOSM/KG 023 5:42 AM T [facility] Comment:REFERENCE RANGE NOT ESTABLISHED GFR ESTIMATE 32(L) >90 ML/MIN/1. 73 M2 01/03/2023 5:42 AM CDT [facility] GFR NOTES GFR REFERENCE S: 01/03/2023 5:42 AM CDT [facility] Comment: THE ESTIMATED GFR IS [...] ml/min/1.73 m2 G5,KIDNEY FAILURE: <15 ml/min/1.73 m2 01/03/2023 4:51 AM CDT Juanpablo Pandey MD LABORATORY Final Result Performing Organization Address [facility] Co de Phone Number [facility] [address] [address], [place] [phone] * (ABNORMAL) POCT glucose (01/02/2023 8:43 PM CDT) GLUCOSE POC 189(H) 70 - 109 01/02/2023 9:22 PM CDT [facility] 01/02/2023 8:43 PM CDT Juanpablo Pandey MD POCT ORDERABLES - DEVICE Fin al Result Performing Organization Address [facility] de Phone Number [facility] [address] [place] [address], [place] [phone] * (ABNORMAL) POCT glucose (01/02/2023 4:26 PM CDT) GLUCOSE POC 190(H) 70 - 109 01/02/2023 4:34 PM CDT [facility] 01/02/2023 4:26 PM CDT Juanpablo Pandey MD POCT ORDERABLES - DEVICE Fin al Result Performing Organization Address [facility] Co de Phone Number [facility] [address] [place] [address], [phone] * (ABNORMAL) POCT glucose (01/02/2023 11:33 AM CDT) GLUCOSE POC 175(H) 70 - 109 01/02/2023 11:37 AM CDT [facility] 01/02/2023 11:3 3 AM CDT Juanpablo Pandey MD POCT ORDERABLES - DEVICE Fin al Result Performing Organization Address City/[facility]/ZIP Co de Phone Number [facility] [address] [place] [address], [phone] * RBC MORPHOLOGY (01/02/2023 6:55 AM CDT) [facility] MORPHOLOGY POIKILOCYTOSIS 2022 8:13 AM CDT [facility] Comment: SLIGHT TEARDROP CELLS TARGET CELLS OVALOCYTES POLYCHROMASIA SLIGHT HYPOCHROMASIA MODERATE ANISOCYTOSIS SLIGHT MICROCYTOSIS SLIGHT 01/02/2023 6:55 AM CDT Juanpablo Pandey MD LABORATORY Final Result Performing Organization Address City/[facility]/ZIP Co de Phone Number [facility] [address] [place] [address], [phone] * (ABNORMAL) PROTIME/INR, VENOUS - Daily (01/02/2023 6:55 AM CDT) PROTIME 20.1(H) 9.4 - 12.5 SEC 01/02/2023 7:42 AM CDT [facility] INR 1.8(H) 0.8 - 1.1 01/02/2023 7:42 AM CDT [facility] 01/02/2023 6:55 AM CDT Juanpablo Pandey MD LABORATORY Final Result Performing Organization Address City/[facility]/ZIP Co de Phone Number [facility] [address] [place] [address], [phone] * MAGNESIUM (01/02/2023 6:55 AM CDT) MAGNESIUM 2.4 1.6 - 2.6 MG/DL 01/02/2023 7:46 AM CDT [facility] 01/02/2023 6:55 AM CDT Juanpablo Pandey MD LABORATORY Final Result Performing Organization Address [facility] Co de Phone Number [facility] [address] [place] [address], [id number] * (ABNORMAL) CBC W/DIFF AUTOMATED (01/02/2023 6:55 AM CDT) WBC 8.67 4.00 - 10.80 x10'3/uL 01/02/2023 7:39 AM CDT [facility] RBC 3.53(L) 4.50 - 6.10 x10'6/uL 01/02/2023 7:39 AM CDT [facility] HGB 8.1(L) 13.0 - 18.0 G/DL 01/02/2023 7:39 AM CDT [facility] HCT 28.3(L) 37.0 - 52.0 % 01/02/2023 7:39 AM CDT [facility] MCV 80.2 78.0 - 100.0 FL 01/02/2023 7:39 AM CDT [facility] MCH 22.9(L) 27.0 - 31.0 PG 01/02/2023 7:39 AM CDT [facility] MCHC 28.6(L) 33.0 - 36.0 G/DL 01/02/2023 7:39 AM CDT [facility] RDW 18.6(H) 11.5 - 14.5 % 01/02/2023 7:39 AM CDT [facility] PLT 169 150 - 350 x10'3/uL 01/02/2023 7:39 AM CDT [facility] MPV 10.1 7.4 - 10.4 FL 01/02/2023 7:39 AM CDT [facility] ABS. NEUTROPHILS 5.58 1.60 - 8.30 x10'3/uL 01/02/2023 7:39 AM CDT [facility] ABS. LYMPHOCYTES 1.40 0.80 - 4.70 x10'3/uL 01/02/2023 7:39 AM CDT [facility] ABS. MONOCYTES 1.26 0.00 - 1.50 x10'3/uL 01/02/2023 7:39 AM CDT [facility] ABS. EOSINOPHILS 0.32 0.00 - 0.40 x10'3/uL 01/02/2023 7:39 AM CDT [facility] ABS. BASOPHILS 0.07 0.00 - 0.20 x10'3/uL 01/02/2023 7:39 AM CDT [facility] ABS. IMMATURE GRANULOCYTES 0.04(H) 0.00 - 0.03 x10'3/uL 01/02/2023 7:39 AM CDT [facility] ABS. NUCLEATED RBC'S 0.00 0.0 x10'3/uL 01/02/2023 7:39 AM CDT [facility] 01/02/2023 6:55 AM CDT us Juanpablo Pandey MD LABORATORY Final Result [facility] [address] [place] [address], [id number] * (ABNORMAL) BASIC METABOLIC PANEL (01/02/2023 6:55 AM CDT) SODIUM S/P/B 131(L) 136 - 145 MMOL/L 01/02/2023 7:46 AM CDT [facility] POTASSIUM S/P/B 4.4 3.5 - 5.1 MMOL/L 01/02/2023 7:46 AM CDT [facility] CHLORIDE S/P/B 97(L) 98 - 107 MMOL/L 01/02/2023 7:46 AM CDT [facility] CO2 30.9 21.0 - 32.0 MMOL/L 01/02/2023 7:46 AM T [facility] GLUCOSE 125(H) 74 - 106 MG/DL 01/02/2023 7:46 AM T [facility] BUN 49(H) 7 - 18 MG/DL 01/02/2023 7:46 AM T [facility] CREATININE S/P/B 2.45(H) 0.70 - 1.30 MG/DL 01/02/2023 7:46 AM CDT [facility] CALCIUM S/P/B 9.4 8.5 - 10.1 MG/DL 01/02/2023 7:46 AM T [facility] ANION GAP 3.1(L) 5.0 - 15.0 MMOL/L 01/02/2023 7:46 AM T [facility] OSMOLALITY (CALC) 286 MOSM/KG 023 7:46 AM T [facility] Comment:REFERENCE RANGE NOT ESTABLISHED GFR ESTIMATE 28(L) >90 ML/MIN/1. 73 M2 01/02/2023 7:46 AM T [facility] GFR NOTES GFR REFERENCE S: 01/02/2023 7:46 AM T [facility] Comment: THE ESTIMATED GFR IS [...] ml/min/1.73 m2 G5,KIDNEY FAILURE: <15 ml/min/1.73 m2 01/02/2023 6:55 AM CDT Juanpablo Pandey MD LABORATORY Final Result Performing Organization Address City/[facility]/ZIP Co de Phone Number [facility] [address] [place] [address], [place] [phone] * (ABNORMAL) POCT glucose (01/02/2023 6:26 AM CDT) GLUCOSE POC 147(H) 70 - 109 01/02/2023 6:36 AM CDT [facility] 01/02/2023 6:26 AM CDT Juanpablo Pandey MD POCT ORDERABLES - DEVICE Fin al Result Performing Organization Address [facility]/[place] Co de Phone Number [facility] [address] [place] [address], [place] [phone] * CULTURE RESPIRATORY W/ GRAM STAIN (01/02/2023 1:14 AM CDT) SPEC DESCRIPTION SPUTUM, EXPECTORATED 01/02/2023 1:14 AM CDT [facility] SPECIAL REQUESTS NO SPECIAL REQUEST 01/02/2023 1:14 AM CDT [facility] GRAM STAIN RESULT SMEAR SUGGESTS ORAL CONTAMINATION, PLEASE RECOLLECT SPECIMEN AND REORDER 01/02/2023 2:25 AM CDT [facility] CULTURE RESULT CULTURE NOT PERFORMED. ??SPECIMEN CONTAINS EXCESS EPITHELIAL CELLS WHICH COULD REPRESENT OROPHARYNGEAL CONTAMINATION. ?? RESULTS SHOULD BE INTERPRETED BASED ON CLINICAL CIRCUMSTANCE. PATIENT CARE AREA NOTIFIED. 01/02/2023 2:25 AM CDT [facility] SPUTUM SPECIMEN / Unknown 01/02/2023 1:14 AM CDT 01/02/2023 1:32 AM CDT Juanpablo Pandey MD MICROBIOLOGY - GENERAL ORDER BAKARI Final Result Performing Organization Address City/[facility]/[place] Co de Phone Number [facility] [address] [place] [address], [place] [phone] * (ABNORMAL) POCT glucose (01/01/2023 7:51 PM CDT) GLUCOSE POC 186(H) 70 - 109 01/01/2023 8:44 PM CDT [facility] 01/01/2023 7:51 PM CDT Juanpablo Pandey MD POCT ORDERABLES - DEVICE Fin al Result Performing Organization Address [facility]/[place] Co de Phone Number [facility] [address] [place] [address], [place] [phone] * (ABNORMAL) POCT glucose (01/01/2023 5:12 PM CDT) GLUCOSE POC 180(H) 70 - 109 01/01/2023 11:13 PM CDT [facility] 01/01/2023 5:12 PM CDT Juanpablo Pandey MD POCT ORDERABLES - DEVICE Fin al Result Performing Organization Address [facility]/[place] Co de Phone Number [facility] [address] [place] [address], [place] [phone] * (ABNORMAL) POCT glucose (01/01/2023 11:41 AM CDT) Pathologist [facility] GLUCOSE POC 196(H) 70 - 109 01/01/2023 11:47 AM CDT [facility] 01/01/2023 11:4 1 AM CDT us Juanpablo Pandey MD POCT ORDERABLES - DEVICE Fin al Result Performing Organization Address [facility]/[place] Co de Phone Number [facility] [address] [place] [address], [place] [phone] * RBC MORPHOLOGY (01/01/2023 9:44 AM CDT) [facility] RBC MORPHOLOGY POLYCHROMASIA 023 10:17 AM CDT [facility] Comment: SLIGHT POIKILOCYTOSIS SLIGHT OVALOCYTES TARGET CELLS ACANTHOCYTES ANISOCYTOSIS SLIGHT HYPOCHROMASIA MODERATE MICROCYTOSIS SLIGHT 01/01/2023 9:44 AM CDT Juanpablo Pandey MD LABORATORY Final Result Performing Organization Address [facility]/[place] Co de Phone Number [facility] [address] [place] [address], [place] [phone] * MAGNESIUM (01/01/2023 9:44 AM CDT) Pathologist [facility] MAGNESIUM 2.5 1.6 - 2.6 MG/DL 01/01/2023 10:21 AM CDT [facility] 01/01/2023 9:44 AM CDT us Juanpablo Pandey MD LABORATORY Final Result Performing Organization Address [facility]/[place] Co de Phone Number [facility] [address] [place] [address], [place] [phone] * (ABNORMAL) CBC W/DIFF AUTOMATED (01/01/2023 9:44 AM CDT) [facility] WBC 8.66 4.00 - 10.80 x10'3/uL 01/01/2023 9:55 AM CDT [facility] RBC 3.61(L) 4.50 - 6.10 x10'6/uL 01/01/2023 9:55 AM CDT [facility] HGB 8.3(L) 13.0 - 18.0 G/DL 01/01/2023 9:55 AM CDT [facility] HCT 29.2(L) 37.0 - 52.0 % 01/01/2023 9:55 AM CDT [facility] MCV 80.9 78.0 - 100.0 FL 01/01/2023 9:55 AM CDT [facility] MCH 23.0(L) 27.0 - 31.0 PG 01/01/2023 9:55 AM CDT [facility] MCHC 28.4(L) 33.0 - 36.0 G/DL 01/01/2023 9:55 AM CDT [facility] RDW 18.7(H) 11.5 - 14.5 % 01/01/2023 9:55 AM CDT [facility] PLT 182 150 - 350 x10'3/uL 01/01/2023 9:55 AM CDT [facility] MPV 10.1 7.4 - 10.4 FL 01/01/2023 9:55 AM CDT [facility] ABS. NEUTROPHILS 6.23 1.60 - 8.30 x10'3/uL 01/01/2023 9:55 AM CDT [facility] ABS. LYMPHOCYTES 0.90 0.80 - 4.70 x10'3/uL 01/01/2023 9:55 AM CDT [facility] ABS. MONOCYTES 1.10 0.00 - 1.50 x10'3/uL 01/01/2023 9:55 AM CDT [facility] ABS. EOSINOPHILS 0.32 0.00 - 0.40 x10'3/uL 01/01/2023 9:55 AM CDT [facility] ABS. BASOPHILS 0.07 0.00 - 0.20 x10'3/uL 01/01/2023 9:55 AM CDT [facility] ABS. IMMATURE GRANULOCYTES 0.04(H) 0.00 - 0.03 x10'3/uL 01/01/2023 9:55 AM CDT [facility] ABS. NUCLEATED RBC'S 0.00 0.0 x10'3/uL 01/01/2023 9:55 AM CDT [facility] 01/01/2023 9:44 AM CDT Juanpablo Paresh Pandey MD LABORATORY Final Result [facility] [address] [place] [id number], [id number] * (ABNORMAL) BASIC METABOLIC PANEL (01/01/2023 9:44 AM CDT) SODIUM S/P/B 131(L) 136 - 145 MMOL/L 01/01/2023 10:21 AM CDT [facility] POTASSIUM S/P/B 4.5 3.5 - 5.1 MMOL/L 01/01/2023 10:21 AM CDT [facility] CHLORIDE S/P/B 97(L) 98 - 107 MMOL/L 01/01/2023 10:21 AM CDT [facility] CO2 30.1 21.0 - 32.0 MMOL/L 01/01/2023 10:21 AM CDT [facility] GLUCOSE 191(H) 74 - 106 MG/DL 01/01/2023 10:21 AM CDT [facility] BUN 41(H) 7 - 18 MG/DL 01/01/2023 10:21 AM CDT [facility] CREATININE S/P/B 2.25(H) 0.70 - 1.30 MG/DL 01/01/2023 10:21 AM CDT [facility] CALCIUM S/P/B 9.2 8.5 - 10.1 MG/DL 01/01/2023 10:21 AM CDT [facility] ANION GAP 3.9(L) 5.0 - 15.0 MMOL/L 01/01/2023 10:21 AM CDT [facility] OSMOLALITY (CALC) 287 MOSM/KG 023 10:21 AM T [facility] Comment:REFERENCE RANGE NOT ESTABLISHED GFR ESTIMATE 31(L) >90 ML/MIN/1. 73 M2 01/01/2023 10:21 AM CDT [facility] GFR NOTES GFR REFERENCE S: 01/01/2023 10:21 AM T [facility] Comment: THE ESTIMATED GFR IS [...] ml/min/1.73 m2 G5,KIDNEY FAILURE: <15 ml/min/1.73 m2 01/01/2023 9:44 AM CDT us Juanpablo Pandey MD LABORATORY Final Result [facility] [address] [place] [address], [phone] * (ABNORMAL) POCT glucose (01/01/2023 6:15 AM CDT) GLUCOSE POC 137(H) 70 - 109 01/01/2023 6:49 AM CDT [facility] 01/01/2023 6:15 AM CDT us Juanpablo Pandey MD POCT ORDERABLES - DEVICE Fin al Result Performing Organization Address [facility]/[place] Co de Phone Number [facility] [address] [place] [address], [place] [phone] * (ABNORMAL) PROTIME/INR, VENOUS - Daily (01/01/2023 4:56 AM CDT) PROTIME 23.5(H) 9.4 - 12.5 SEC 01/01/2023 5:44 AM CDT [facility] INR 2.1(H) 0.8 - 1.1 01/01/2023 5:44 AM CDT [facility] 01/01/2023 4:56 AM CDT us Juanpablo Pandey MD LABORATORY Final Result Performing Organization Address [facility] de Phone Number [facility] [address] [place] [address], [place] [phone] * (ABNORMAL) POCT glucose (12/31/2022 7:49 PM CDT) GLUCOSE POC 186(H) 70 - 109 12/31/2022 8:39 PM CDT [facility] 12/31/2022 7:49 PM CDT us Juanpablo Pandey MD POCT ORDERABLES - DEVICE Fin al Result Performing Organization Address [facility]/[place] Co de Phone Number [facility] [address] [place] [address], [place] [phone] * (ABNORMAL) POCT glucose (12/31/2022 4:48 PM CDT) GLUCOSE POC 180(H) 70 - 109 12/31/2022 4:50 PM CDT [facility] 12/31/2022 4:48 PM CDT Juanpablo Pandey MD POCT ORDERABLES - DEVICE Fin al Result Performing Organization Address City/[facility]/ZIP Co de Phone Number [facility] [address] [place] [address], [place] [phone] * (ABNORMAL) POCT glucose (12/31/2022 11:31 AM CDT) GLUCOSE POC 159(H) 70 - 109 12/31/2022 11:37 AM CDT [facility] 12/31/2022 11:3 1 AM CDT Juanpablo Pandey MD POCT ORDERABLES - DEVICE Fin al Result Performing Organization Address [facility]/[place] Co de Phone Number [facility] [address] [place] [address], [place] [phone] * (ABNORMAL) POCT glucose (12/31/2022 6:23 AM CDT) GLUCOSE POC 167(H) 70 - 109 12/31/2022 6:25 AM CDT [facility] 12/31/2022 6:23 AM CDT us Juanpablo Pandey MD POCT ORDERABLES - DEVICE Fin al Result Performing Organization Address City/[facility]/[place] Co de Phone Number [facility] [address] [place] [address], [place] [phone] * RBC MORPHOLOGY (12/31/2022 5:28 AM CDT) RBC MORPHOLOGY ANISOCYTOSIS 01/01/20 7:03 AM CDT [facility] Comment: SLIGHT HYPOCHROMASIA SLIGHT POIKILOCYTOSIS SLIGHT OVALOCYTES ACANTHOCYTES TARGET CELLS 12/31/2022 5:28 AM CDT Juanpablo Pandey MD LABORATORY Final Result Performing Organization Address [facility]/ZIP Co de Phone Number [facility] [address] [place] [address], [id number] * (ABNORMAL) PROTIME/INR, VENOUS - Daily (12/31/2022 5:28 AM CDT) Pathologist [facility] PROTIME 28.0(H) 9.4 - 12.5 SEC 12/31/2022 6:24 AM CDT [facility] INR 2.4(H) 0.8 - 1.1 12/31/2022 6:24 AM CDT [facility] 12/31/2022 5:28 AM CDT Juanpablo Pandey MD LABORATORY Final Result Performing Organization Address [facility]/[place] Co de Phone Number [facility] [address] [place] [address], [id number] * MAGNESIUM (12/31/2022 5:28 AM CDT) Pathologist [facility] MAGNESIUM 2.4 1.6 - 2.6 MG/DL 12/31/2022 6:27 AM CDT [facility] 12/31/2022 5:28 AM CDT Juanpablo Pandey MD LABORATORY Final Result Performing Organization Address [facility]/ZIP Co de Phone Number [facility] [address] [place] [address], [phone] * (ABNORMAL) CBC W/DIFF AUTOMATED (12/31/2022 5:28 AM CDT) [facility] WBC 7.90 4.00 - 10.80 x10'3/uL 12/31/2022 5:46 AM CDT [facility] RBC 3.63(L) 4.50 - 6.10 x10'6/uL 12/31/2022 5:46 AM CDT [facility] HGB 8.3(L) 13.0 - 18.0 G/DL 12/31/2022 5:46 AM CDT [facility] HCT 29.3(L) 37.0 - 52.0 % 12/31/2022 5:46 AM CDT [facility] MCV 80.7 78.0 - 100.0 FL 12/31/2022 5:46 AM CDT [facility] MCH 22.9(L) 27.0 - 31.0 PG 12/31/2022 5:46 AM CDT [facility] MCHC 28.3(L) 33.0 - 36.0 G/DL 12/31/2022 5:46 AM CDT [facility] RDW 18.3(H) 11.5 - 14.5 % 12/31/2022 5:46 AM CDT [facility] PLT 183 150 - 350 x10'3/uL 12/31/2022 5:46 AM CDT [facility] MPV 10.5(H) 7.4 - 10.4 FL 12/31/2022 5:46 AM CDT [facility] ABS. NEUTROPHILS 5.15 1.60 - 8.30 x10'3/uL 12/31/2022 5:46 AM CDT [facility] ABS. LYMPHOCYTES 1.14 0.80 - 4.70 x10'3/uL 12/31/2022 5:46 AM CDT [facility] ABS. MONOCYTES 1.19 0.00 - 1.50 x10'3/uL 12/31/2022 5:46 AM CDT [facility] ABS. EOSINOPHILS 0.32 0.00 - 0.40 x10'3/uL 12/31/2022 5:46 AM CDT [facility] ABS. BASOPHILS 0.07 0.00 - 0.20 x10'3/uL 12/31/2022 5:46 AM CDT [facility] ABS. IMMATURE GRANULOCYTES 0.03 0.00 - 0.03 x10'3/uL 12/31/2022 5:46 AM CDT [facility] ABS. NUCLEATED RBC'S 0.00 0.0 x10'3/uL 12/31/2022 5:46 AM CDT [facility] 12/31/2022 5:28 AM CDT Juanpablo Paresh Pandey MD LABORATORY Final Result [facility] [address] [place] [address], [id number] * (ABNORMAL) BASIC METABOLIC PANEL (12/31/2022 5:28 AM CDT) SODIUM S/P/B 132(L) 136 - 145 MMOL/L 12/31/2022 6:27 AM CDT [facility] POTASSIUM S/P/B 4.1 3.5 - 5.1 MMOL/L 12/31/2022 6:27 AM CDT [facility] CHLORIDE S/P/B 99 98 - 107 MMOL/L 12/31/2022 6:27 AM CDT [facility] CO2 29.5 21.0 - 32.0 MMOL/L 12/31/2022 6:27 AM CDT [facility] GLUCOSE 120(H) 74 - 106 MG/DL 12/31/2022 6:27 AM CDT [facility] BUN 37(H) 7 - 18 MG/DL 12/31/2022 6:27 AM CDT [facility] CREATININE S/P/B 2.15(H) 0.70 - 1.30 MG/DL 12/31/2022 6:27 AM CDT [facility] CALCIUM S/P/B 8.9 8.5 - 10.1 MG/DL 12/31/2022 6:27 AM CDT [facility] ANION GAP 3.5(L) 5.0 - 15.0 MMOL/L 12/31/2022 6:27 AM CDT [facility] OSMOLALITY (CALC) 284 MOSM/KG 023 6:27 AM CDT [facility] Comment:REFERENCE RANGE NOT ESTABLISHED GFR ESTIMATE 33(L) >90 ML/MIN/1. 73 M2 12/31/2022 6:27 AM CDT [facility] GFR NOTES GFR REFERENCE S: 12/31/2022 6:27 AM CDT [facility] Comment: THE ESTIMATED GFR IS [...] ml/min/1.73 m2 G5,KIDNEY FAILURE: <15 ml/min/1.73 m2 12/31/2022 5:28 AM CDT Juanpablo Pandey MD LABORATORY Final Result [facility] [address] [place] [address], [id number] * (ABNORMAL) POCT glucose (12/30/2022 8:12 PM CDT) GLUCOSE POC 202(H) 70 - 109 12/30/2022 9:31 PM CDT [facility] 12/30/2022 8:12 PM CDT us Juanpablo Pandey MD POCT ORDERABLES - DEVICE Fin al Result Performing Organization Address City/[facility]/ZIP Co de Phone Number [facility] [address] [place] [address], [id number] * (ABNORMAL) POCT glucose (12/30/2022 4:59 PM CDT) GLUCOSE POC 180(H) 70 - 109 12/30/2022 5:04 PM CDT [facility] 12/30/2022 4:59 PM CDT us Juanpablo Pandey MD POCT ORDERABLES - DEVICE Fin al Result Performing Organization Address [facility] de Phone Number [facility] [address] [place] [address], [place] [phone] * (ABNORMAL) POCT glucose (12/30/2022 11:22 AM CDT) GLUCOSE POC 155(H) 70 - 109 12/30/2022 11:30 AM CDT [facility] 12/30/2022 11:2 2 AM CDT us Juanpablo Pandey MD POCT ORDERABLES - DEVICE Fin al Result Performing Organization Address [facility]/[place] Co de Phone Number [facility] [address] [place] [address], [place] [phone] * RBC MORPHOLOGY (12/30/2022 10:34 AM CDT) RBC MORPHOLOGY POLYCHROMASIA 023 2:02 PM CDT [facility] Comment: SLIGHT ANISOCYTOSIS MODERATE MICROCYTOSIS SLIGHT MACROCYTOSIS SLIGHT HYPOCHROMASIA SLIGHT POIKILOCYTOSIS SLIGHT OVALOCYTES ACANTHOCYTES TEARDROP CELLS 12/30/2022 10:3 4 AM CDT Juanpablo Pandey MD LABORATORY Final Result Performing Organization Address [facility] Co de Phone Number [facility] [address] [place] [address], [id number] * MAGNESIUM (12/30/2022 10:34 AM CDT) MAGNESIUM 2.4 1.6 - 2.6 MG/DL 12/30/2022 11:26 AM CDT [facility] 12/30/2022 10:3 4 AM CDT Juanpablo Pandey MD LABORATORY Final Result Performing Organization Address [facility] de Phone Number [facility] [address] [place] [address], [id number] * (ABNORMAL) BASIC METABOLIC PANEL (12/30/2022 10:34 AM CDT) SODIUM S/P/B 131(L) 136 - 145 MMOL/L 12/30/2022 11:26 AM CDT [facility] POTASSIUM S/P/B 4.2 3.5 - 5.1 MMOL/L 12/30/2022 11:26 AM CDT [facility] CHLORIDE S/P/B 101 98 - 107 MMOL/L 12/30/2022 11:26 AM CDT [facility] CO2 23.9 21.0 - 32.0 MMOL/L 12/30/2022 11:26 AM CDT [facility] GLUCOSE 125(H) 74 - 106 MG/DL 12/30/2022 11:26 AM CDT [facility] BUN 34(H) 7 - 18 MG/DL 12/30/2022 11:26 AM CDT [facility] CREATININE S/P/B 1.98(H) 0.70 - 1.30 MG/DL 12/30/2022 11:26 AM CDT [facility] CALCIUM S/P/B 9.2 8.5 - 10.1 MG/DL 12/30/2022 11:26 AM CDT [facility] ANION GAP 6.1 5.0 - 15.0 MMOL/L 12/30/2022 11:26 AM CDT [facility] OSMOLALITY (CALC) 281 MOSM/KG 023 11:26 AM T [facility] Comment:REFERENCE RANGE NOT ESTABLISHED GFR ESTIMATE 36(L) >90 ML/MIN/1. 73 M2 12/30/2022 11:26 AM CDT [facility] GFR NOTES GFR REFERENCE S: 12/30/2022 11:26 AM T [facility] Comment: THE ESTIMATED GFR IS [...] ml/min/1.73 m2 G5,KIDNEY FAILURE: <15 ml/min/1.73 m2 12/30/2022 10:3 4 AM CDT us Juanpablo Pandey MD LABORATORY Final Result [facility] [address] [place] [address], [id number] * (ABNORMAL) CBC W/DIFF AUTOMATED (12/30/2022 10:34 AM CDT) [facility] WBC 8.66 4.00 - 10.80 x10'3/uL 12/30/2022 11:09 AM CDT [facility] RBC 3.66(L) 4.50 - 6.10 x10'6/uL 12/30/2022 11:09 AM CDT [facility] HGB 8.6(L) 13.0 - 18.0 G/DL 12/30/2022 11:09 AM CDT [facility] HCT 30.3(L) 37.0 - 52.0 % 12/30/2022 11:09 AM CDT [facility] MCV 82.8 78.0 - 100.0 FL 12/30/2022 11:09 AM CDT [facility] MCH 23.5(L) 27.0 - 31.0 PG 12/30/2022 11:09 AM CDT [facility] MCHC 28.4(L) 33.0 - 36.0 G/DL 12/30/2022 11:09 AM CDT [facility] RDW 18.6(H) 11.5 - 14.5 % 12/30/2022 11:09 AM CDT [facility] PLT 174 150 - 350 x10'3/uL 12/30/2022 11:09 AM CDT [facility] MPV 10.4 7.4 - 10.4 FL 12/30/2022 11:09 AM CDT [facility] ABS. NEUTROPHILS 6.07 1.60 - 8.30 x10'3/uL 12/30/2022 11:09 AM CDT [facility] ABS. LYMPHOCYTES 0.97 0.80 - 4.70 x10'3/uL 12/30/2022 11:09 AM CDT [facility] ABS. MONOCYTES 1.18 0.00 - 1.50 x10'3/uL 12/30/2022 11:09 AM CDT [facility] ABS. EOSINOPHILS 0.29 0.00 - 0.40 x10'3/uL 12/30/2022 11:09 AM CDT [facility] ABS. BASOPHILS 0.11 0.00 - 0.20 x10'3/uL 12/30/2022 11:09 AM CDT [facility] ABS. IMMATURE GRANULOCYTES 0.04(H) 0.00 - 0.03 x10'3/uL 12/30/2022 11:09 AM CDT [facility] ABS. NUCLEATED RBC'S 0.00 0.0 x10'3/uL 12/30/2022 11:09 AM CDT [facility] 12/30/2022 10:3 4 AM CDT us Juanpablo Pandey MD LABORATORY Final Result [facility] [address] [place] [address], [id number] * POCT glucose (12/30/2022 5:58 AM CDT) GLUCOSE POC 91 70 - 109 12/30/2022 11:30 AM CDT [facility] 12/30/2022 5:58 AM CDT us Juanpablo Pandey MD POCT ORDERABLES - DEVICE Fin al Result Performing Organization Address City/[facility]/ZIP Co de Phone Number [facility] [address] [place] [address], [id number] * (ABNORMAL) POCT glucose (12/30/2022 5:10 AM CDT) GLUCOSE POC 64(L) 70 - 109 12/30/2022 5:56 AM CDT [facility] 12/30/2022 5:10 AM CDT Juanpablo Pandey MD POCT ORDERABLES - DEVICE Fin al Result Performing Organization Address [facility]/ZIP Co de Phone Number [facility] [address] [place] [address], [id number] * (ABNORMAL) PROTIME/INR, VENOUS - Daily (12/30/2022 5:01 AM CDT) PROTIME 33.3(H) 9.4 - 12.5 SEC 12/30/2022 6:15 AM CDT [facility] INR 2.9(H) 0.8 - 1.1 12/30/2022 6:15 AM CDT [facility] 12/30/2022 5:01 AM CDT Juanpablo Pandey MD LABORATORY Final Result Performing Organization Address [facility]/[place] Co de Phone Number [facility] [address] [place] [address], [id number] * Vancomycin Random Level (12/30/2022 5:01 AM CDT) VANCOMYCIN RANDOM 23.7 MCG/ML 12/30/2022 6:22 AM CDT [facility] Comment:REFERENCE RANGE NOT ESTABLISHED 12/30/2022 5:01 AM CDT Juanpablo Pandey MD LABORATORY Final Result Performing Organization Address [facility]/[place] Co de Phone Number [facility] [address] [place] [address], [id number] * (ABNORMAL) POCT glucose (12/29/2022 7:54 PM CDT) GLUCOSE POC 178(H) 70 - 109 12/29/2022 8:29 PM CDT [facility] 12/29/2022 7:54 PM CDT Juanpablo Pandey MD POCT ORDERABLES - DEVICE Fin al Result Performing Organization Address [facility] de Phone Number [facility] [address] [place] [address], [phone] * POCT glucose (12/29/2022 3:55 PM CDT) GLUCOSE POC 70 70 - 109 12/29/2022 4:10 PM CDT [facility] 12/29/2022 3:55 PM CDT Juanpablo Pandey MD POCT ORDERABLES - DEVICE Fin al Result Performing Organization Address [facility] de Phone Number [facility] [address] [place] [address], [phone] * USE ECHOCARDIOGRAM W CON (12/29/2022 11:54 AM CDT) Anatomical Region Laterality Modality NA Echocardiogram 12/29/2022 9:47 AM CDT Narrative 12/29/2022 6:02 PM CDT ?Echocardiography Report Pat.Name: ??OBIE SIMS ?Pat.ID: ?[id number] ? St.Date: ?? 12/29/2022 ?Refer.MD: ??JUANPABLO PANDEY ? Exam Time: 9:47:00 AM ? Study Type:ECHO WITH CARDIAC DOPPLER COMP Height: ?66 in ? Weight: ?226 lb ? BSA: ? 2.11 m2 ?Age: ??1955,67Y ? Sex: ? M ? BP: ?112/64 ? HR: ?91 bpm ?Sonogrphr: Britney Alfonso RDCS ? Pat. Stat.:Inpatient ? Room: ?484 ? Procedures: 2D, M-mode, Doppler, Color Flow, Definity was used to enhance endocardial definition. Race: ?W ? ++++++++++++++++++++++++++++++++++++ SUMMARY: ++++++++++++++++++++++++++++++++++++ Technically difficult exam. Mild concentric left ventricular hypertrophy. ??The calculated ejection fraction is 37%. The right ventricular size is enlarged. ??Right ventricular systolic function is moderately depressed. Biatrial enlargement. 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 ??No evidence of aortic regurgitation. Trace mitral regurgitation. Unable to reliably quantitate pulmonary systolic pressure. ++++++++++++++++++++++++++++++++++++ FINDINGS: ++++++++++++++++++++++++++++++++++++ LV: ? The calculated ejection fraction is 37%. Estimated left ?ventricular ejection fraction is 35-40%. Mild concentric ?left ventricular hypertrophy. The septal E/e' is elevated at ?>15. The lateral E/e' is elevated at >11. Left ventricular ?diastolic function is abnormal (grade 3 - restrictive ?filling). RV: ? The right ventricular size is enlarged. Right ventricular ?systolic function is moderately depressed. TAPSE = 11.6mm ?(<16 mm indicates systolic RV dysfunction). LA: ? The left atrial volume is mildly increased (34- 41ml/M2). RA: ? The right atrium was not well visualized in all views, but ?is probably enlarged. ANYA: ? No evidence of pericardial effusion. AO: ? The sinus of Valsalva measures 2.6cm. The proximal ascending ?aorta measures 3.3cm. PA: ? Unable to reliably quantitate pulmonary systolic pressure. SVn: ?Systemic veins not well visualized. Other: ?Technically difficult exam. AV: ? No evidence of aortic regurgitation. Moderate thickening of ?aortic valve leaflets. 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 MV: ? Trace mitral regurgitation. No evidence of mitral stenosis. PV: ? Trace pulmonic regurgitation. TV: ? A trace of tricuspid regurgitation. ++++++++++++++++++++++++++++++++++++ MEASUREMENTS: ++++++++++++++++++++++++++++++++++++ ?DOPPLER LVOT ?? LVOTpkPG ? 3 mmHg ?LVOTmnPG ? 2 mmHg LVOTpkVel ? 90.2 cm/s (70-110) LVOT SV ? 47 ml ?? LVOT TVI ?15.1 cm ? AV Forward Flow AV TVI ?44.6 cm ?AV pkPG ? 28 mmHg AV pkVel ? 265 cm/s (100-170)* Area (TVI) ?1.06 cm2 ??(3-5)* AV mnVel ? 177 cm/s ?Area (Wilbert) ?1.07 cm2 ??(3-5)* AV mnPG ? 16 mmHg ? MV Forward Flow MV DeTm ?161 msec ?MV pkPG ?6 mmHg MVA P1/2t ? 5.37 cm2 ??(4-6) ?MV E/A ? 3.5 ? MV P1/2t ?41 msec (30-60)+ MV pkE ? 109 cm/s (60-130) MV mnPG ?2 mmHg ?MV pkA ?30.8 cm/s PV Regurg Flow PV pkVel ?86.9 cm/s ?PV pkPG ?3 mmHg TV Regurg Flow TV pkPG ? 14 mmHg ? TV pkVel ? 186 cm/s (30-70)+* Lat E' ?? Lat e ? 8.16 cm/s ? Lat E/E' ?? Lat E/e ? 13.4 ? Med E' ?? Med e ?3.7 cm/s ? Med E/E' ?? Med E/e ? 29.5 ? Aortic Valve ?? Aortic Valve Ar ?? 0.5 ?Aortic Valve Ve ??0.34 ? AV DI ?? Value ?0.3 ? EMILE (VTI) Index ?? Value ?0.5 ? LV Mass 2D ?? Value ?227 g ? LV Mass Gigmg1T ?? Value ?108 g/m2 ? Right Ventricle ?? Right Ventricle ??7.62 cm/s ?2D Left Ventricle ?? LVIDd ? 5.17 cm ?? (3.6-5.2) LV EF(Bi-Plane) ??36.8 % ?(63-77)* LVIDs ? 4.67 cm ?? (2.3-3.9)* LVPW ?? LVPWd ? 1.01 cm ? Ventricular Septum ?? IVSd ?1.25 cm ? Aorta ?? Ao Rtd ? 2.5 cm ?? (zsc -1.3) Ao Asc ? 3.3 cm ?? (zsc 2.4)* LVOT ?? LVOT ? 2 cm ? Ratios ?? IVS LA Biplane LAVol I BP ?36.2 ml/m2 ?MMODE TA ?? Tricuspid Annul ??1.16 cm ? <Electronic Signature> 12/29/2022 06:02 PM Amauri Pandey M.D. Procedure Note Amauri Pandey MD - 12/30/2022 Echocardiography Report Pat.Name: OBIE SIMS Pat.ID: [id number] .Date: 12/29/2022 Refer.MD: JUANPABLO PANDEY Exam Time: 9:47:00 AM Study Type:ECHO WITH CARDIAC DOPPLER COMP Height: 66 in Weight: 226 lb BSA: 2.11 m2 Age: 12 1955,67Y Sex: M BP: 112/64 HR: 91 bpm Sonogrphr: Britney Alfonso [facility] Pat. Stat.:Inpatient Room: 484 Procedures: 2D, M-mode, Doppler, Color Flow, Definity was used to enhance endocardial definition. Race: W ++++++++++++++++++++++++++++++++++++ SUMMARY: ++++++++++++++++++++++++++++++++++++ Technically difficult exam. Mild concentric left ventricular hypertrophy. The calculated ejection fraction is 37%. The right ventricular size is enlarged. Right ventricular systolic function is moderately depressed. Biatrial enlargement. 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 No evidence of aortic regurgitation. Trace mitral regurgitation. Unable to reliably quantitate pulmonary systolic pressure. ++++++++++++++++++++++++++++++++++++ FINDINGS: ++++++++++++++++++++++++++++++++++++ LV: The calculated ejection fraction is 37%. Estimated left ventricular ejection fraction is 35-40%. Mild concentric left ventricular hypertrophy. The septal E/e' is elevated at >15. The lateral E/e' is elevated at >11. Left ventricular diastolic function is abnormal (grade 3 - restrictive filling). RV: The right ventricular size is enlarged. Right ventricular systolic function is moderately depressed. TAPSE = 11.6mm (<16 mm indicates systolic RV dysfunction). LA: The left atrial volume is mildly increased (34- 41ml/M2). RA: The right atrium was not well visualized in all views, but is probably enlarged. ANYA: No evidence of pericardial effusion. AO: The sinus of Valsalva measures 2.6cm. The proximal ascending aorta measures 3.3cm. PA: Unable to reliably quantitate pulmonary systolic pressure. SVn: Systemic veins not well visualized. Other: Technically difficult exam. AV: No evidence of aortic regurgitation. Moderate thickening of aortic valve leaflets. 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 MV: Trace mitral regurgitation. No evidence of mitral stenosis. PV: Trace pulmonic regurgitation. TV: A trace of tricuspid regurgitation. ++++++++++++++++++++++++++++++++++++ MEASUREMENTS: ++++++++++++++++++++++++++++++++++++ DOPPLER LVOT LVOTpkPG 3 mmHg LVOTmnPG 2 mmHg LVOTpkVel 90.2 cm/s (70-110) LVOT SV 47 ml LVOT TVI 15.1 cm AV Forward Flow AV TVI 44.6 cm AV pkPG 28 mmHg AV pkVel 265 cm/s (100-170)* Area (TVI) 1.06 cm2 (3-5)* AV mnVel 177 cm/s Area (Wilbert) 1.07 cm2 (3-5)* AV mnPG 16 mmHg MV Forward Flow MV DeTm 161 msec MV pkPG 6 mmHg MVA P1/2t 5.37 cm2 (4-6) MV E/A 3.5 MV P1/2t 41 msec (30-60)+ MV pkE 109 cm/s (60-130) MV mnPG 2 mmHg MV pkA 30.8 cm/s PV Regurg Flow PV pkVel 86.9 cm/s PV pkPG 3 mmHg TV Regurg Flow TV pkPG 14 mmHg TV pkVel 186 cm/s (30-70)+* Lat E' Lat e 8.16 cm/s Lat E/E' Lat E/e 13.4 Med E' Med e 3.7 cm/s Med E/E' Med E/e 29.5 Aortic Valve Aortic Valve Ar 0.5 Aortic Valve Ve 0.34 AV DI Value 0.3 EMILE (VTI) Index Value 0.5 LV Mass 2D Value 227 g LV Mass Oewnd3L Value 108 g/m2 Right Ventricle Right Ventricle 7.62 cm/s 2D Left Ventricle LVIDd 5.17 cm (3.6-5.2) LV EF(Bi-Plane) 36.8 % (63-77)* LVIDs 4.67 cm (2.3-3.9)* LVPW LVPWd 1.01 cm Ventricular Septum IVSd 1.25 cm Aorta Ao Rtd 2.5 cm (zsc -1.3) Ao Asc 3.3 cm (zsc 2.4)* LVOT LVOT 2 cm Ratios IVS LA Biplane LAVol I BP 36.2 ml/m2 MMODE TA Tricuspid Annul 1.16 cm <Electronic Signature> 12/29/2022 06:02 PM Amauri Pandey M.D. Juanpablo Pandey MD ECHO Final Result * (ABNORMAL) POCT glucose (12/29/2022 11:11 AM CDT) GLUCOSE POC 116(H) 70 - 109 12/29/2022 11:29 AM CDT [facility] 12/29/2022 11:1 1 AM CDT Juanpablo Pandey MD POCT ORDERABLES - DEVICE Fin al Result Performing Organization Address [facility] de Phone Number [facility] [address] [place] [address], [phone] * POCT glucose (12/29/2022 8:11 AM CDT) GLUCOSE POC 103 70 - 109 12/29/2022 8:13 AM CDT [facility] 12/29/2022 8:11 AM CDT Juanpablo Pandey MD POCT ORDERABLES - DEVICE Fin al Result Performing Organization Address [facility] de Phone Number [facility] [address] [place] [address], [phone] * (ABNORMAL) POCT glucose (12/29/2022 6:47 AM CDT) GLUCOSE POC 63(L) 70 - 109 12/29/2022 6:52 AM CDT [facility] 12/29/2022 6:47 AM CDT Juanpablo Pandey MD POCT ORDERABLES - DEVICE Fin al Result Performing Organization Address [facility] de Phone Number [facility] [address] [place] [address], [phone] * CULTURE URINE (12/29/2022 6:33 AM CDT) SPEC DESCRIPTION URINE CLEAN CATCH 12/29/2022 6:34 AM CDT [facility] SPECIAL REQUESTS NO SPECIAL REQUEST 12/29/2022 6:34 AM CDT [facility] CULTURE RESULT NO GROWTH (< OR = 1,000 CFU/ML) 12/30/2022 12:00 PM CDT [facility] URINE SPECIMEN OBTAINED BY CLEAN CATCH PROCEDURE / Unknown 12/29/2022 6:33 AM CDT 12/29/2022 6:45 AM CDT Eveline Jacinto NP MICROBIOLOGY - GENERAL ORDERABLES Final Result Performing Organization Address City/[facility]/ZIP Co de Phone Number [facility] [address] [place] [address], [phone] * (ABNORMAL) POCT glucose (12/29/2022 6:29 AM CDT) GLUCOSE POC 52(L) 70 - 109 12/29/2022 6:36 AM CDT [facility] 12/29/2022 6:29 AM CDT us Juanpablo Parseh Pandey MD POCT ORDERABLES - DEVICE Fin al Result [facility] [address] [place] [address], [place] [phone] * (ABNORMAL) URINALYSIS (12/29/2022 6:23 AM CDT) COLOR (U) LIGHT YELLOW 12/29/2022 7:01 AM CDT [facility] TRANSPARENCY CLEAR 12/29/2022 7:01 AM CDT [facility] SPECIFIC GRAVITY (U) 1.014 1.002 - 1.035 12/29/2022 7:01 AM CDT [facility] U PH 5.0 5 - 8 12/29/2022 7:01 AM CDT [facility] PROTEIN (U) NEGATIVE NEGATIVE 12/29/2022 7:01 AM CDT [facility] URINE GLUCOSE 200(A) NEGATIVE MG/DL 12/29/2022 7:01 AM CDT [facility] KETONES MG/DL (U) NEGATIVE NEGATIVE 12/29/2022 7:01 AM CDT [facility] BILIRUBIN (U) NEGATIVE NEGATIVE 12/29/2022 7:01 AM CDT [facility] BLOOD (U) NEGATIVE NEGATIVE 12/29/2022 7:01 AM CDT [facility] NITRITES NEGATIVE NEGATIVE 12/29/2022 7:01 AM CDT [facility] UROBILINOGEN NORMAL 0 - 1 EU/DL 12/29/2022 7:01 AM CDT [facility] LEUKOCYTES (U) 1+(A) NEGATIVE 12/29/2022 7:01 AM CDT [facility] RBC/HPF <1 0 - 3 /HPF 12/29/2022 7:01 AM CDT [facility] WBC/HPF 1 0 - 6 /HPF 12/29/2022 7:01 AM CDT [facility] BACTERIA (U) NONE /HPF 12/29/2022 7:01 AM CDT [facility] SQUAMOUS EPITHELIALS 1 12/29/2022 7:01 AM CDT [facility] URINE SPECIMEN OBTAINED BY CLEAN CATCH PROCEDURE / Unknown 12/29/2022 6:23 AM CDT Eveline Jacinto NP URINE ORDERABLES Final Result Performing Organization Address [facility] de Phone Number [facility] [address] [place] [address], [phone] * (ABNORMAL) PROTIME/INR, VENOUS - Daily (12/29/2022 4:03 AM CDT) PROTIME 33.9(H) 9.4 - 12.5 SEC 12/29/2022 5:19 AM CDT [facility] INR 2.9(H) 0.8 - 1.1 12/29/2022 5:19 AM CDT [facility] 12/29/2022 4:0 3 AM CDT Juanpablo Pandey MD LABORATORY Final Result Performing Organization Address [facility] de Phone Number [facility] [address] [place] [address], [phone] * (ABNORMAL) THYROID STIM HORMONE, TSH (12/29/2022 4:03 AM CDT) TSH 4.900(H) 0.358 - 3.740 uIU/ML 12/29/2022 5:46 AM CDT [facility] Comment: ASSAY PERFORMED BY CHEMILUMINESCENCE METHODOLOGY USING [employer] [place]. PATIENT RESULTS DETERMINED BY ASSAYS USING DIFFERENT MANUFACTURERS FOR METHODS MAY NOT BE COMPARABLE. 12/29/2022 4:03 AM CDT Juanpablo Pandey MD LABORATORY Final Result [facility] [address] [place] [address], [phone] * MAGNESIUM (12/29/2022 4:03 AM CDT) MAGNESIUM 2.4 1.6 - 2.6 MG/DL 12/29/2022 5:46 AM CDT [facility] 12/29/2022 4:03 AM CDT Juanpablo Pandey MD LABORATORY Final Result Performing Organization Address [facility] de Phone Number [facility] [address] [place] [address], [phone] * (ABNORMAL) BASIC METABOLIC PANEL (12/29/2022 4:03 AM CDT) SODIUM S/P/B 134(L) 136 - 145 MMOL/L 12/29/2022 5:46 AM CDT [facility] POTASSIUM S/P/B 4.6 3.5 - 5.1 MMOL/L 12/29/2022 5:46 AM CDT [facility] CHLORIDE S/P/B 102 98 - 107 MMOL/L 12/29/2022 5:46 AM CDT [facility] CO2 24.4 21.0 - 32.0 MMOL/L 12/29/2022 5:46 AM CDT [facility] GLUCOSE 59(L) 74 - 106 MG/DL 12/29/2022 5:46 AM CDT [facility] BUN 34(H) 7 - 18 MG/DL 12/29/2022 5:46 AM CDT [facility] CREATININE S/P/B 2.06(H) 0.70 - 1.30 MG/DL 12/29/2022 5:46 AM CDT [facility] CALCIUM S/P/B 9.3 8.5 - 10.1 MG/DL 12/29/2022 5:46 AM CDT [facility] ANION GAP 7.6 5.0 - 15.0 MMOL/L 12/29/2022 5:46 AM CDT [facility] OSMOLALITY (CALC) 283 MOSM/KG 023 5:46 AM CDT [facility] Comment:REFERENCE RANGE NOT ESTABLISHED GFR ESTIMATE 34(L) >90 ML/MIN/1. 73 M2 12/29/2022 5:46 AM CDT [facility] GFR NOTES GFR REFERENCE S: 12/29/2022 5:46 AM CDT [facility] Comment: THE ESTIMATED GFR IS [...] ml/min/1.73 m2 G5,KIDNEY FAILURE: <15 ml/min/1.73 m2 12/29/2022 4:03 AM CDT Juanpablo Pandey MD LABORATORY Final Result [facility] [address] [place] [address], [phone] * (ABNORMAL) CBC W/DIFF AUTOMATED (12/29/2022 4:03 AM CDT) WBC 8.73 4.00 - 10.80 x10'3/uL 12/29/2022 4:58 AM CDT [facility] RBC 3.64(L) 4.50 - 6.10 x10'6/uL 12/29/2022 4:58 AM CDT [facility] HGB 8.4(L) 13.0 - 18.0 G/DL 12/29/2022 4:58 AM CDT [facility] HCT 29.0(L) 37.0 - 52.0 % 12/29/2022 4:58 AM CDT [facility] MCV 79.7 78.0 - 100.0 FL 12/29/2022 4:58 AM CDT [facility] MCH 23.1(L) 27.0 - 31.0 PG 12/29/2022 4:58 AM CDT [facility] MCHC 29.0(L) 33.0 - 36.0 G/DL 12/29/2022 4:58 AM CDT [facility] RDW 18.1(H) 11.5 - 14.5 % 12/29/2022 4:58 AM CDT [facility] PLT 174 150 - 350 x10'3/uL 12/29/2022 4:58 AM CDT [facility] MPV 10.5(H) 7.4 - 10.4 FL 12/29/2022 4:58 AM CDT [facility] ABS. NEUTROPHILS 5.57 1.60 - 8.30 x10'3/uL 12/29/2022 4:58 AM CDT [facility] ABS. LYMPHOCYTES 1.36 0.80 - 4.70 x10'3/uL 12/29/2022 4:58 AM CDT [facility] ABS. MONOCYTES 1.42 0.00 - 1.50 x10'3/uL 12/29/2022 4:58 AM CDT [facility] ABS. EOSINOPHILS 0.25 0.00 - 0.40 x10'3/uL 12/29/2022 4:58 AM CDT [facility] ABS. BASOPHILS 0.11 0.00 - 0.20 x10'3/uL 12/29/2022 4:58 AM CDT [facility] ABS. IMMATURE GRANULOCYTES 0.02 0.00 - 0.03 x10'3/uL 12/29/2022 4:58 AM CDT [facility] ABS. NUCLEATED RBC'S 0.00 0.0 x10'3/uL 12/29/2022 4:58 AM CDT [facility] 12/29/2022 4:03 AM CDT us Juanpablo Pandey MD LABORATORY Final Result Performing Organization Address [facility] de Phone Number [facility] [address] [place] [address], [phone] * POCT glucose (12/28/2022 11:10 PM CDT) GLUCOSE POC 101 70 - 109 12/28/2022 11:11 PM CDT [facility] 12/28/2022 11:1 0 PM CDT Juanpablo Pandey MD POCT ORDERABLES - DEVICE Fin al Result Performing Organization Address [facility] de Phone Number [facility] [address] [place] [address], [place] [phone] * POCT glucose (12/28/2022 10:10 PM CDT) GLUCOSE POC 80 70 - 109 12/28/2022 10:12 PM CDT [facility] 12/28/2022 10:1 0 PM CDT us Juanpablo Pandey MD POCT ORDERABLES - DEVICE Fin al Result Performing Organization Address [facility] de Phone Number [facility] [address] [place] [address], [place] [phone] * (ABNORMAL) POCT glucose (12/28/2022 9:39 PM CDT) GLUCOSE POC 59(L) 70 - 109 12/28/2022 10:11 PM CDT [facility] 12/28/2022 9:39 PM CDT us Juanpablo Pandey MD POCT ORDERABLES - DEVICE Fin al Result Performing Organization Address [facility]/ZIP Co de Phone Number [facility] [address] [place] [address], [place] [phone] * LACTIC ACID - SINGLE (12/28/2022 7:06 PM CDT) LACTIC ACID VENOUS 1.0 0.4 - 2.0 MMOL/L 12/28/2022 7:50 PM CDT [facility] 12/28/2022 7:06 PM CDT us Juanpablo Pandey MD LABORATORY Final Result Performing Organization Address [facility] de Phone Number [facility] [address] [place] [address], [place] [phone] * POCT glucose (12/28/2022 5:20 PM CDT) GLUCOSE POC 98 70 - 109 12/28/2022 5:24 PM CDT [facility] 12/28/2022 5:20 PM CDT us Juanpablo Pandey MD POCT ORDERABLES - DEVICE Fin al Result Performing Organization Address [facility]/ZIP Co de Phone Number [facility] [address] [place] [address], [place] [phone] * CT ABD+PEL WO CON (12/28/2022 5:19 PM CDT) Anatomical Region Laterality Modality Abdomen Computed Tomogra phy 12/28/2022 5:28 PM CDT Addenda Addendum by Dari Tovar DO on 12/28/2022 9:05 PM CDT No significant change in size of right adrenal nodule measuring up to 4.2 cm on axial imaging, previously 4.0 cm and 2009 using similar measuring technique. ??This suggests benign lesion given multiyear stability. Referred By: ?? Interpreted By: Dari Tovar DO, 12/28/2022 9:03 PM Impressions 12/28/2022 5:50 PM CDT IMPRESSION: 1. ??Findings concerning for sigmoid volvulus, recommend surgical evaluation. ??No evidence of perforation. 2. ??Small ascites. 3. ??Anasarca. 4. 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 5. ??Additional chronic/nonemergent findings as above. Dr. Dari Tovar relayed concern for cecal volvulus via [employer] messaging with Dr. Juanpablo Pandey at 5:48 PM on 12/28/2022 with positive delivery receipt. The provider demonstrated understanding and significance of the findings via returned text acknowledgment. Referred By: ?? Interpreted By: Dari Tovar DO, 12/28/2022 5:28 PM Narrative 12/28/2022 5:50 PM CDT STUDY: CT ABD+PEL WO CON: 12/28/2022 4:49 PM CLINICAL INFORMATION: Nausea/vomiting Bowel obstruction suspected COMPARISON: Same day chest radiographs, 6 CT abdomen/pelvis with/without 04/02/2009, CT chest without 02/19/2014 TECHNIQUE: CT acquisition of the abdomen and pelvis. Coronal and sagittal reformatted images provided. A dose lowering technique was utilized for this procedure which may include but is not limited to dose reduction techniques, automated exposure control, and/or the use of iterative reconstruction in accordance with ALARA principle. IV Contrast: None Oral contrast: None. ?? FINDINGS: LOWER CHEST: Severe coronary artery calcifications. ??Status post median sternotomy with aortic valve prosthesis. ??Bibasilar scarring/atelectasis. ??Mild bilateral gynecomastia. ABDOMEN/PELVIS: Liver: Unremarkable noncontrasted appearance. Gallbladder/biliary: Layering calcifications within the gallbladder lumen. No biliary ductal dilation. Pancreas: Normal. Spleen: Normal. Adrenal glands: Normal. Kidneys and ureters: Mild bilateral relapse the. ??Partially exophytic left renal cyst measuring up to 5.1 cm on axial imaging. ??Hyperdense left renal midpole lesion, likely represents a hemorrhagic or proteinaceous cyst partially exophytic right inferior pole lesion with peripheral calcification measuring up to 0.7 cm. ??No hydronephrosis or hydroureter. Bladder: Normal. Reproductive organs: Small bilateral hydroceles. ??Prostatomegaly. Stomach/bowel: Dilated loop sigmoid colon measuring up to 7.0 cm in diameter. ??No wall thickening. Appendix: Not visualized. Lymph nodes: No lymphadenopathy. Peritoneum: No intraperitoneal free air. Small water attenuating ascites Vessels: Diffuse arterial calcifications. MUSCULOSKELETAL: Abdominal wall: Small fat and fluid containing umbilical hernia. Bones: No acute osseous abnormality. ??Status post left thoracoplasty with heterotopic ossification. ??Severe right hip osteoarthrosis. ??Moderate to severe degenerative changes of the spine, most significant at L5-S1. ??Diffuse, flowing thoracic osteophytes consistent with diffuse idiopathic skeletal hyperostosis (DISH). Soft tissues: Anasarca. Procedure Note Dari Tovar DO - 12/28/2022 STUDY: CT ABD+PEL WO CON: 12/28/2022 4:49 PM CLINICAL INFORMATION: Nausea/vomiting Bowel obstruction suspected COMPARISON: Same day chest radiographs, 6 CT abdomen/pelvis with/without04/02/2009, CT chest without 02/19/2014 TECHNIQUE: CT acquisition of the abdomen and pelvis. Coronal and sagittalreformatted images provided. A dose lowering technique was utilized forthis procedure which may include but is not limited to dose reductiontechniques, automated exposure control, and/or the use of iterativereconstruction in accordance with ALARA principle. IV Contrast: None Oral contrast: None. FINDINGS: LOWER CHEST: Severe coronary artery calcifications. Status post median sternotomy withaortic valve prosthesis. Bibasilar scarring/atelectasis. Mild bilateralgynecomastia. ABDOMEN/PELVIS: Liver: Unremarkable noncontrasted appearance. Gallbladder/biliary: Layering calcifications within the gallbladder lumen.No biliary ductal dilation. Pancreas: Normal. Spleen: Normal. Adrenal glands: Normal. Kidneys and ureters: Mild bilateral relapse the. Partially exophytic leftrenal cyst measuring up to 5.1 cm on axial imaging. Hyperdense left renalmidpole lesion, likely represents a hemorrhagic or proteinaceous cystpartially exophytic right inferior pole lesion with peripheralcalcification measuring up to 0.7 cm. No hydronephrosis or hydroureter. Bladder: Normal. Reproductive organs: Small bilateral hydroceles. Prostatomegaly. Stomach/bowel: Dilated loop sigmoid colon measuring up to 7.0 cm indiameter. No wall thickening. Appendix: Not visualized. Lymph nodes: No lymphadenopathy. Peritoneum: No intraperitoneal free air. Small water attenuating ascites Vessels: Diffuse arterial calcifications. MUSCULOSKELETAL: Abdominal wall: Small fat and fluid containing umbilical hernia. Bones: No acute osseous abnormality. Status post left thoracoplasty withheterotopic ossification. Severe right hip osteoarthrosis. Moderate tosevere degenerative changes of the spine, most significant at L5-S1.Diffuse, flowing thoracic osteophytes consistent with diffuse idiopathicskeletal hyperostosis (DISH). Soft tissues: Anasarca. IMPRESSION: 1. Findings concerning for sigmoid volvulus, recommend surgicalevaluation. No evidence of perforation. 2. Small ascites. 3. Anasarca. 4. Diffuse heterotopic ossification surrounding the total left hipprosthesis. 5. Additional chronic/nonemergent findings as above. Dr. Dari Tovar relayed concern for cecal volvulus via Doc Halomessaging with Dr. Juanpablo Pandey at 5:48 PM on 12/28/2022 with positivedelivery receipt. The provider demonstrated understanding and significanceof the findings via returned text acknowledgment. Referred By: Interpreted By: Dari Tovar DO, 12/28/2022 5:28 PM us Juanpablo Pandey MD CT Edited Resul t - Final * CULTURE, BACTERIA BLOOD X2 (12/28/2022 12:51 PM CDT) SPEC DESCRIPTION BLOOD 12/28/2022 12:35 PM CDT [facility] SPECIAL REQUESTS NO SPECIAL REQUEST 12/28/2022 12:35 PM CDT [facility] CULTURE RESULT NO GROWTH 5 DAYS 01/02/2023 9:15 PM CDT [facility] BLOOD SPECIMEN OBTAINED FOR BLOOD CULTURE / Unknown 12/28/2022 12:51 PM CDT 12/28/2022 12:53 PM CDT Fortunato Guzmán MD MICROBIOLOGY - GENERAL ORDERABL ES Final Result Performing Organization Address [facility] Co de Phone Number [facility] [address] [place] [address], [phone] * (ABNORMAL) PROTIME/INR, VENOUS (12/28/2022 12:45 PM CDT) PROTIME 31.2(H) 9.4 - 12.5 SEC 12/28/2022 1:12 PM CDT [facility] INR 2.7(H) 0.8 - 1.1 12/28/2022 1:12 PM CDT [facility] 12/28/2022 12:4 5 PM CDT us Fortunato Guzmán MD LABORATORY Final Result Performing Organization Address [facility] Co de Phone Number [facility] [address] [place] [address], [phone] * PROCALCITONIN (PCT) (12/28/2022 12:45 PM CDT) Procalcitonin 0.28 <0.50 NG/ML 12/28/2022 1:51 PM CDT [facility] 12/28/2022 12:4 5 PM CDT us Fortunato Guzmán MD LABORATORY Final Result Performing Organization Address [facility] Co de Phone Number [facility] [address] [place] [address], [place] [phone] * (ABNORMAL) SED RATE, ERYTHROCYTE (ESR) (12/28/2022 12:45 PM CDT) ESR 115(H) 0 - 15 MM/HR 12/28/2022 12:58 PM CDT [facility] 12/28/2022 12:4 5 PM CDT us Fortunato Guzmán MD LABORATORY Final Result Performing Organization Address [facility] de Phone Number [facility] [address] [place] [address], [phone] * CULTURE, BACTERIA BLOOD X2 (12/28/2022 12:45 PM CDT) SPEC DESCRIPTION BLOOD 12/28/2022 12:35 PM CDT [facility] SPECIAL REQUESTS NO SPECIAL REQUEST 12/28/2022 12:35 PM CDT [facility] CULTURE RESULT NO GROWTH 5 DAYS 01/02/2023 9:15 PM CDT [facility] BLOOD SPECIMEN OBTAINED FOR BLOOD CULTURE / Unknown 12/28/2022 12:45 PM CDT 12/28/2022 12:46 PM CDT us Fortunato Guzmán MD MICROBIOLOGY - GENERAL ORDERABL ES Final Result Performing Organization Address [facility] de Phone Number [facility] [address] [place] [address], [place] [phone] * RBC MORPHOLOGY (12/28/2022 12:17 PM CDT) [facility] MORPHOLOGY ANISOCYTOSIS 12/29/19 1:43 PM CDT [facility] Comment: SLIGHT POLYCHROMASIA SLIGHT HYPOCHROMASIA SLIGHT POIKILOCYTOSIS SLIGHT OVALOCYTES ACANTHOCYTES 12/28/2022 12:1 7 PM CDT Eveline Jacinto NP LABORATORY Final R esult [facility] [address] [place] [address], [phone] * (ABNORMAL) HEPATIC FUNCTION PANEL (12/28/2022 12:17 PM CDT) Pathologist [facility] BILIRUBIN TOTAL S/P/B 1.0 0.2 - 1.0 MG/DL 12/28/2022 1:36 PM CDT [facility] BILIRUBIN DIRECT S/P/B 0.3(H) 0.0 - 0.2 MG/DL 12/28/2022 1:36 PM CDT [facility] ALKALINE PHOSPHATASE S/P/B 133(H) 45 - 115 U/L 12/28/2022 1:36 PM CDT [facility] AST 31 15 - 37 U/L 12/28/2022 1:36 PM CDT [facility] Comment:RESULT QUESTIONABLE DUE TO HEMOLYSIS, CONSIDER RECOLLECTION. ALT 24 16 - 61 U/L 12/28/2022 1:36 PM CDT [facility] TOTAL PROTEIN S/P/B 8.3(H) 6.4 - 8.2 G/DL 12/28/2022 1:36 PM CDT [facility] ALBUMIN S/P/B 3.3(L) 3.4 - 5.0 G/DL 12/28/2022 1:36 PM CDT [facility] 12/28/2022 12:1 7 PM CDT us Fortunato Guzmán MD LABORATORY Final Result Performing Organization Address [facility] Co de Phone Number [facility] [address] [place] [address], [phone] * (ABNORMAL) C-REACTIVE PROTEIN (12/28/2022 12:17 PM CDT) C-REACTIVE PROTEIN 1.85(H) <0.80 mg/dL 12/28/2022 1:04 PM CDT [facility] 12/28/2022 12:1 7 PM CDT Fortunato Guzmán MD LABORATORY Final Result Performing Organization Address [facility] Co de Phone Number [facility] [address] [place] [address], [phone] * TROPONIN, QUANT (12/28/2022 12:17 PM CDT) TROPONIN I HIGH SENSITIVITY 40 0 - 78 ng/L 12/28/2022 12:58 PM CDT [facility] 12/28/2022 12:1 7 PM CDT Eveline Jacinto NP LABORATORY Final R esult Performing Organization Address [facility] Co de Phone Number [facility] [address] [place] [address], [place] [phone] * (ABNORMAL) PRO-BRAIN NATRIURETIC PEPTIDE (12/28/2022 12:17 PM CDT) PRO-B TYPE NATRIURETIC PEPTIDE 5,795(H) <125 PG/ML 12/28/2022 12:58 PM CDT [facility] Comment: AGE INDEPENDENT: <300 PG/ML HAS [...] OF 89% AND 72% FOR ACUTE CHF. 12/28/2022 12:1 7 PM CDT Eveline Jacinto OVER[employer] LABORATORY Final R esult Performing Organization Address [facility] Co de Phone Number [facility] [address] [place] [address], [place] [phone] * MAGNESIUM (12/28/2022 12:17 PM CDT) Pathologist [facility] MAGNESIUM 2.3 1.6 - 2.6 MG/DL 12/28/2022 12:58 PM CDT [facility] Comment:RESULT QUESTIONABLE DUE TO HEMOLYSIS, CONSIDER RECOLLECTION. 12/28/2022 12:1 7 PM CDT Eveline Jacinto [employer] LABORATORY Final R [facility] Performing Organization Address [facility] de Phone Number [facility] [address] [place] [address], [phone] * (ABNORMAL) BASIC METABOLIC PANEL (12/28/2022 12:17 PM CDT) SODIUM S/P/B 135(L) 136 - 145 MMOL/L 12/28/2022 12:58 PM CDT [facility] POTASSIUM S/P/B 4.9 3.5 - 5.1 MMOL/L 12/28/2022 12:58 PM CDT [facility] Comment:SLIGHT HEMOLYSIS, RE SULT MAY BE AFFECTED. CHLORIDE S/P/B 101 98 - 107 MMOL/L 12/28/2022 12:58 PM CDT [facility] CO2 28.1 21.0 - 32.0 MMOL/L 12/28/2022 12:58 PM CDT [facility] GLUCOSE 115(H) 74 - 106 MG/DL 12/28/2022 12:58 PM CDT [facility] BUN 35(H) 7 - 18 MG/DL 12/28/2022 12:58 PM CDT [facility] CREATININE S/P/B 2.26(H) 0.70 - 1.30 MG/DL 12/28/2022 12:58 PM CDT [facility] CALCIUM S/P/B 9.6 8.5 - 10.1 MG/DL 12/28/2022 12:58 PM CDT [facility] ANION GAP 5.9 5.0 - 15.0 MMOL/L 12/28/2022 12:58 PM CDT [facility] OSMOLALITY (CALC) 289 MOSM/KG 023 12:58 PM CDT [facility] Comment:REFERENCE RANGE NOT ESTABLISHED GFR ESTIMATE 31(L) >90 ML/MIN/1. 73 M2 12/28/2022 12:58 PM CDT [facility] GFR NOTES GFR REFERENCE S: 12/28/2022 12:58 PM T [facility] Comment: THE ESTIMATED GFR IS [...] ml/min/1.73 m2 G5,KIDNEY FAILURE: <15 ml/min/1.73 m2 12/28/2022 12:1 7 PM CDT Eveline Jacinto NP LABORATORY Final R esult [facility] [address] [place] [address], [phone] * (ABNORMAL) CBC W/DIFF AUTOMATED (12/28/2022 12:17 PM CDT) [facility] WBC 10.68 4.00 - 10.80 x10'3/uL 12/28/2022 12:46 PM CDT [facility] RBC 3.95(L) 4.50 - 6.10 x10'6/uL 12/28/2022 12:46 PM CDT [facility] HGB 9.1(L) 13.0 - 18.0 G/DL 12/28/2022 12:46 PM CDT [facility] HCT 31.7(L) 37.0 - 52.0 % 12/28/2022 12:46 PM CDT [facility] MCV 80.3 78.0 - 100.0 FL 12/28/2022 12:46 PM CDT [facility] MCH 23.0(L) 27.0 - 31.0 PG 12/28/2022 12:46 PM CDT [facility] MCHC 28.7(L) 33.0 - 36.0 G/DL 12/28/2022 12:46 PM CDT [facility] RDW 18.3(H) 11.5 - 14.5 % 12/28/2022 12:46 PM CDT [facility] PLT 201 150 - 350 x10'3/uL 12/28/2022 12:46 PM CDT [facility] MPV 11.1(H) 7.4 - 10.4 FL 12/28/2022 12:46 PM CDT [facility] ABS. NEUTROPHILS 7.71 1.60 - 8.30 x10'3/uL 12/28/2022 12:46 PM CDT [facility] ABS. LYMPHOCYTES 1.48 0.80 - 4.70 x10'3/uL 12/28/2022 12:46 PM CDT [facility] ABS. MONOCYTES 1.18 0.00 - 1.50 x10'3/uL 12/28/2022 12:46 PM CDT [facility] ABS. EOSINOPHILS 0.20 0.00 - 0.40 x10'3/uL 12/28/2022 12:46 PM CDT [facility] ABS. BASOPHILS 0.07 0.00 - 0.20 x10'3/uL 12/28/2022 12:46 PM CDT [facility] ABS. IMMATURE GRANULOCYTES 0.04(H) 0.00 - 0.03 x10'3/uL 12/28/2022 12:46 PM CDT [facility] ABS. NUCLEATED RBC'S 0.00 0.0 x10'3/uL 12/28/2022 12:46 PM CDT [facility] 12/28/2022 12:1 7 PM CDT Eveline Jacinto [employer] LABORATORY Final R esult [facility] [address] [place] [address], [phone] * ECG 12 lead (12/28/2022 12:15 PM CDT) 12/28/2022 12:1 5 PM CDT Narrative [facility] - 12/29/2022 6:39 AM CDT ?SJS-ED ? Test Date: ?2022-12-28 Pat Name: ? OBIE SIMS ?Department: ?? 70 ? Room: ? 484 Gender: ? Male ? Director Digital Advertising: ?? RLP : ?1955 ? Requested By: EVELINE JACINTO Order Number: [id number] ? Reading MD: ?? Domingo Parks ? Measurements Intervals ?[place] ? Rate: ? 90 ? P: ? IN: ? 0 ?QRS: ?-35 QRSD: ? 132 ?T: ?136 QT: ? 388 ? QTc: ?476 ? Interpretive Statements ATRIAL FIBRILLATION MARKED LEFT AXIS DEVIATION ??[QRS AXIS < -30] LEFT BUNDLE BRANCH BLOCK ??[120+ ms QRS DURATION, 80+ ms Q/S IN V1/V2, 85+ ms R IN I/aVL/V5/V6] Procedure Note Domingo Parks MD - 12/29/2022 SJS-ED Test Date: 2022-12-28 Pat Name: OBIE SIMS Department: 70 Room: 484 Gender: Male Director Digital Advertising: ISABEL : 1955 Requested By: EVELINE JACINTO Order Number: [id number] Reading MD: Domingo Parks Measurements Intervals [place] Rate: 90 P: IN: 0 QRS: -35 QRSD: 132 T: 136 QT: 388 QTc: 476 Interpretive Statements ATRIAL FIBRILLATION MARKED LEFT AXIS DEVIATION [QRS AXIS < -30] LEFT BUNDLE BRANCH BLOCK [120+ ms QRS DURATION, 80+ ms Q/S IN V1/V2, 85+ms R IN I/aVL/V5/V6] us Eveline Jacinto OVER[employer] ECG ORDERABLES Final R esult [facility] * XR CHEST PA+LAT (12/28/2022 11:58 AM CDT) Anatomical Region Laterality Modality Chest Radiographic Stephie ging 12/28/2022 12:1 4 PM CDT Impressions 12/28/2022 12:15 PM CDT IMPRESSION: 1. No acute findings. Ordered By: EVELINE JACINTO Interpreted By: Kirk Lemus MD, 12/28/2022 12:14 PM Narrative 12/28/2022 12:15 PM CDT Patient name: OBIE SIMS Examination: Chest x-ray 2 view Exam time: 12/28/2022 11:56 AM Clinical history: 67 years Male. Shortness of breath Comparison: 02/04/2022 Technique: Frontal and lateral views of the chest were obtained. Findings: No parenchymal consolidation. Blunting of right costophrenic angle. No pneumothorax. Cardiomegaly unchanged. Atherosclerosis. Old rib fractures. Sternotomy wires, mediastinal clips, aortic valve prosthesis again identified. Procedure Note Kirk Lemus MD - 12/28/2022 Patient name: OBIE SIMS Examination: Chest x-ray 2 view Exam time: 12/28/2022 11:56 AM Clinical history: 67 years Male. Shortness of breath Comparison: 02/04/2022 Technique: Frontal and lateral views of the chest were obtained. Findings: No parenchymal consolidation. Blunting of right costophrenicangle. No pneumothorax. Cardiomegaly unchanged. Atherosclerosis. Old ribfractures. Sternotomy wires, mediastinal clips, aortic valve prosthesisagain identified. IMPRESSION: 1. No acute findings. Ordered By: EVELINE JACINTO Interpreted By: Kirk Lemus MD, 12/28/2022 12:14 PM Eveline Jacinto [employer] GENERAL IMAGING Final R esult documented in this encounter Visit Diagnoses Diagnosis CHF (congestive heart failure) ([facility])- Primary Congestive heart failure, unspecified Acute exacerbation of CHF (congestive heart failure) ([facility] HHS/HCC) Congestive heart failure, unspecified Cellulitis Cellulitis and abscess of unspecified site Pain in both lower extremities Acute on chronic combined systolic and diastolic congestive heart failure ([facility]) Acute on chronic combined systolic and diastolic heart failure documented in this encounter Admitting Diagnoses Diagnosis CHF (congestive heart failure) ([facility] H[facility]) Congestive heart failure, unspecified documented in this encounter Administered Medications Inactive Administered Medications - up to 3 most recent administrations Medication Order MAR Action Action Date Dose Rate Site acetaminophen (TYLENOL) tablet 650 mg 650 mg, Oral, Every 6 hours PRN, Mild pain (Scale 1 - 3), Starting on Wed12/28/22 at 1556, Until Wed01/04/23 at 1556, Maximum dose of acetaminophen is 4000 mg from all sources in 24 hours. Given 01/01/2023 8:45 PM CDT 650 mg Given 12/29/2022 8:47 AM CDT 650 mg albuterol sulfate HFA 108 (90 Base) MCG/ACT inhaler 2 puff 2 puff, Inhalation, Every 4 hours PRN, Wheezing, Shortness of breath, Starting on Wed12/28/22 at 1556, Until Wed01/04/23 at 1556 amLODIPine (NORVASC) tablet 2.5 mg 2.5 mg, Oral, Daily, First dose on Wed12/29/22 at 0900, Until Discontinued Given 12/30/2022 9:06 AM CDT 2.5 mg Given 12/29/2022 8:04 AM CDT 2.5 mg amoxicillin-clavulanate (AUGMENTIN) 875-125 MG tablet 875 mg 875 mg, Oral, Every 12 hours scheduled (2 times per day), First dose on Wed12/31/22 at 2100, Until Discontinued Given 01/04/2023 8:45 AM CDT 875 mg Given 01/03/2023 8:06 PM CDT 875 mg Given 01/03/2023 8:31 AM CDT 875 mg aspirin chewable tablet 81 mg 81 mg, Oral, Daily, First dose on Wed12/29/22 at 0900, Until Discontinued Given 12/30/2022 9:07 AM CDT 81 mg Given 12/29/2022 8:04 AM CDT 81 mg aspirin EC (ECOTRIN) tablet 81 mg 81 mg, Oral, Daily, First dose on Wed12/31/22 at 0900, Until Discontinued, Do not break, chew, or crush. Given 01/04/2023 8:45 AM CDT 81 mg Given 01/03/2023 8:31 AM CDT 81 mg Given 01/02/2023 10:36 AM CDT 81 mg atorvastatin (LIPITOR) tablet 80 mg 80 mg, Oral, Nightly at bedtime, First dose on Wed12/28/22 at 2100, Until Discontinued Given 01/03/2023 8:06 PM CDT 80 mg Given 01/02/2023 9:31 PM CDT 80 mg Given 01/01/2023 8:44 PM CDT 80 mg carvedilol (COREG) tablet 3.125 mg 3.125 mg, Oral, 2 times daily, First dose on Wed12/28/22 at 2100, Until Discontinued, Take with meal or snack Given 01/04/2023 8:45 AM CDT 3.125 mg Given 01/03/2023 8:06 PM CDT 3.125 mg Given 01/03/2023 8:31 AM CDT 3.125 mg ceFEPIme (MAXIPIME) 2 g in sodium chloride (PF) 0.9 % 10 mL IV 2 g, Intravenous, Administer over 5 Minutes, Every 12 hours, First dose on Wed12/28/22 at 2100, Until Discontinued Given 12/31/2022 9:26 AM CDT 2 g 120 mL/hr Given 12/30/2022 8:41 PM CDT 2 g 120 mL/hr Given 12/30/2022 9:04 AM CDT 2 g 120 mL/hr cyclobenzaprine (FLEXERIL) tablet 5 mg 5 mg, Oral, Once, 1 dose, On Wed01/01/23 at 1715 Given 01/01/2023 5:13 PM CDT 5 mg dextrose 10 % bolus infusion 125-250 mL 125-250 mL, Intravenous, Administer over 15 Minutes, As needed, Low Blood Sugar, Starting on Wed12/29/22 at 0651, Until Wed01/04/23 at 1556, If patient is verbally responsive and NPO [...] repeat until blood glucose reaches 70 mg/dL fluticasone propionate (FLOVENT HFA) 44 MCG/ACT inhaler 1 puff 1 puff, Inhalation, 2 times daily, First dose on Wed12/28/22 at 1900, Until Discontinued, Following administration, rinse mouth with water after use (do not swallow) to reduce risk of oral candidiasis. Given 12/28/2022 6:49 PM CDT 1 puff fluticasone propionate (FLOVENT HFA) 44 MCG/ACT inhaler 1 puff 1 puff, Inhalation, 2 times daily, First dose (after last modification) on Wed12/29/22 at 0700, Until Discontinued, Following administration, rinse mouth with water after use (do not swallow) to reduce risk of oral candidiasis. Given 12/30/2022 6:00 AM CDT 1 puff Given 12/29/2022 4:41 PM CDT 1 puff Given 12/29/2022 7:50 AM CDT 1 puff fluticasone propionate (FLOVENT HFA) 44 MCG/ACT inhaler 1 puff 1 puff, Inhalation, 2 times daily, First dose (after last modification) on Wed12/30/22 at 1900, Until Discontinued, Following administration, rinse mouth with water after use (do not swallow) to reduce risk of oral candidiasis. Given 01/04/2023 6:00 AM CDT 1 puff Given 01/03/2023 8:06 PM CDT 1 puff Given 01/03/2023 6:00 AM CDT 1 puff furosemide (LASIX) injection 60 mg 60 mg, Intravenous, Once, 1 dose, On Wed12/28/22 at 1300, Administer IV push 20-40mg/min. Given 12/28/2022 1:09 PM CDT 60 mg furosemide (LASIX) injection 60 mg 60 mg, Intravenous, 2 times daily, First dose on Wed12/29/22 at 0900, Until Discontinued, Administer IV push 20-40mg/min. Given 01/02/2023 10:36 AM CDT 60 mg Given 01/01/2023 5:15 PM CDT 60 mg Given 01/01/2023 8:57 AM CDT 60 mg furosemide (LASIX) injection 60 mg 60 mg, Intravenous, Daily, First dose (after last modification) on Wed01/03/23 at 0900, Until Discontinued, Administer IV push 20-40mg/min. Given 01/04/2023 8:45 AM CDT 60 mg Given 01/03/2023 8:31 AM CDT 60 mg gabapentin (NEURONTIN) capsule 300 mg 300 mg, Oral, Daily, First dose on Wed12/29/22 at 0900, Until Discontinued Given 01/04/2023 8:45 AM CDT 300 mg Given 01/03/2023 8:31 AM CDT 300 mg Given 01/02/2023 10:36 AM CDT 300 mg gabapentin (NEURONTIN) capsule 600 mg 600 mg, Oral, Nightly at bedtime, First dose on Wed12/28/22 at 2100, Until Discontinued Given 01/03/2023 8:06 PM CDT 60 0 mg Given 01/02/2023 9:31 PM CDT 600 mg Given 01/01/2023 8:44 PM CDT 600 mg glucagon injection 1 mg 1 mg, Intramuscular, Once as needed, Other, Low blood sugar, 1 dose, Starting on Wed12/29/22 at 0651, Until Wed01/04/23 at 1556, If patient is verbally UNresponsive and no IV access with blood glucose less than 70 mg/dL. Do NOT repeat administration. glucose oral gel 32-64 mL 32-64 mL (15-30 g of dextrose), Oral, As needed, Low blood sugar, Starting on Wed12/29/22 at 0651, Until Wed01/04/23 at 1556, If patient is verbally responsive and taking thickened liquids or oral medications: Blood glucose less than 50 mg/dL - give 30 g of dextrose; repeat until blood glucose reaches 70 mg/dL Blood glucose 50-69 mg/dL - give 15 g of dextrose; repeat until blood glucose reaches 70 mg/dL 32 mL of glucose gel = 15 g of dextrose Given 12/29/2022 7:50 AM CDT 32 mLs HYDROcodone-acetaminophen (NORCO) 7.5-325 MG tablet 1 tablet 1 tablet, Oral, 2 times daily PRN, Moderate pain (Scale 4 - 7), Starting on Wed12/28/22 at 1600, Until Wed01/04/23 at 1556, Maximum dose of acetaminophen is 4000 mg from all sources in 24 hours. Given 01/04/2023 12:03 PM CDT 1 tab let Given 01/03/2023 8:55 PM CDT 1 tablet Given 01/02/2023 9:32 PM CDT 1 tablet insulin lispro (HUMALOG) injection 0-8 Units 0-8 Units, Subcutaneous, 4 times daily before meals and nightly, First dose on Wed12/28/22 at 1630, Until Discontinued, From sliding scale insulin subcut [...] administer 8 units and Call Physician) Given 01/04/2023 12:02 PM CDT 2 Units Left Arm Given 01/03/2023 8:56 PM CDT 2 Units Ri ght Lower Abdomen Given 01/03/2023 5:33 PM CDT 2 Units Le ft Arm ipratropium-albuterol (COMBIVENT RESPIMAT) 20-100 MCG/ACT inhaler 1 puff 1 puff, Inhalation, 4 times daily, First dose on Wed01/02/23 at 1300, Until Discontinued, Shake Well. Prime inhaler prior to first use. Common canister Given 01/04/2023 8:45 AM CDT 1 puff Given 01/03/2023 8:06 PM CDT 1 puff Given 01/03/2023 5:33 PM CDT 1 puff ipratropium-albuterol (DUONEB) 0.5-2.5 (3) MG/3ML nebulizer solution 3 mL 3 mL, Nebulization, Every 6 hours, First dose on Wed12/28/22 at 1900, Until Discontinued Given 12/28/2022 8:07 PM CDT 3 mLs ipratropium-albuterol (DUONEB) 0.5-2.5 (3) MG/3ML nebulizer solution 3 mL 3 mL, Nebulization, 4 times daily, First dose (after last modification) on Wed12/29/22 at 0700, Until Discontinued Given 12/30/2022 6:39 AM CDT 3 mLs Given 12/29/2022 4:45 PM CDT 3 mLs Given 12/29/2022 11:41 AM CDT 3 mLs ipratropium-albuterol (DUONEB) 0.5-2.5 (3) MG/3ML nebulizer solution 3 mL 3 mL, Nebulization, 2 times daily, First dose (after last modification) on Wed12/30/22 at 1900, Until Discontinued Given 01/02/2023 7:36 AM CDT 3 mLs Given 01/01/2023 7:12 PM CDT 3 mLs Given 01/01/2023 8:14 AM CDT 3 mLs isosorbide dinitrate-hydralazine (BIDIL) 20-37.5 MG tablet 0.5 tablet 0.5 tablet, Oral, 3 times daily, First dose on Wed12/30/22 at 2100, Until Discontinued Given 01/01/2023 8:51 PM CDT 0.5 tablets Given 01/01/2023 4:00 PM CDT 0.5 tablets Given 01/01/2023 8:58 AM CDT 0.5 tablets isosorbide dinitrate-hydralazine (BIDIL) 20-37.5 MG tablet 0.5 tablet 0.5 tablet, Oral, 2 times daily, First dose (after last modification) on Wed01/02/23 at 2100, Until Discontinued Given 01/04/2023 8:58 AM CDT 0.5 tabl ets Given 01/03/2023 8:55 PM CDT 0.5 tablets Given 01/03/2023 10:45 AM CDT 0.5 tablets melatonin 5 mg 5 mg, Oral, Nightly PRN, sleep, Starting on Wed12/28/22 at 2254, Until Wed01/04/23 at 1556 Given 01/03/2023 8:06 PM CDT 5 mg Given 01/01/2023 8:44 PM CDT 5 mg Given 12/31/2022 8:40 PM CDT 5 mg morphine injection 2 mg 2 mg, Intravenous, Every 4 hours PRN, Severe pain (Scale 8 - 10), Starting on Wed12/28/22 at 1418, Until Wed01/04/23 at 1556 Given 01/04/2023 1:49 PM CDT 2 mg Given 01/04/2023 5:48 AM CDT 2 mg Given 01/03/2023 10:22 PM CDT 2 mg nystatin (MYCOSTATIN) powder Topical, 2 times daily, First dose on Wed12/29/22 at 0900, Until Discontinued Given 01/04/2023 8:45 AM CDT Given 01/03/2023 8:06 PM CDT Given 01/03/2023 8:33 AM CDT ondansetron (ZOFRAN) injection 4 mg 4 mg, Intravenous, Every 8 hours PRN, Nausea, Vomiting, Starting on Wed12/28/22 at 1556, Until Wed01/04/23 at 1556, IV push over 2-5 minutes. pantoprazole EC (PROTONIX) tablet 40 mg 40 mg, Oral, Daily, First dose on Wed12/28/22 at 1700, Until Discontinued, Do not break, chew, or crush. Given 01/04/2023 8:45 AM CDT 40 mg Given 01/03/2023 8:31 AM CDT 40 mg Given 01/02/2023 10:36 AM CDT 40 mg perflutren lipid microsphere (DEFINITY) injection 1 mL 1 mL, Intravenous, IMG once as needed, Contrast, 1 dose, Starting on Wed12/29/22 at 1153, Until Wed12/29/22 at 1154, Administer over 30-60 seconds. Follow with 10 mL saline flush. Given 12/29/2022 11:54 AM CDT 1 mL piperacillin-tazobactam (ZOSYN) 4.5 g in sodium chloride 0.9 % 100 mL IVPB 4.5 g, Intravenous, Administer over 30 Minutes, Once, 1 dose, On Wed12/28/22 at 1315 New Bag 12/28/2022 1:30 PM CDT 4.5 g 200 mL/hr polyethylene glycol (GLYCOLAX) packet 17 g 17 g, Oral, Daily as needed, Constipation, Starting on Wed12/28/22 at 1556, Until Wed01/04/23 at 1556, If both senna and polyethylene glycol are ordered, use 1st; if no response by next dosing interval, go to next option. Given 01/02/2023 10:37 AM CDT 17 g rOPINIRole (REQUIP) tablet 4 mg 4 mg, Oral, Nightly at bedtime, First dose on Wed12/28/22 at 2100, Until Discontinued Given 01/03/2023 8:06 PM CDT 4 mg Given 01/02/2023 9:32 PM CDT 4 mg Given 01/01/2023 8:45 PM CDT 4 mg sertraline (ZOLOFT) tablet 50 mg 50 mg, Oral, Daily, First dose on Wed12/29/22 at 0900, Until Discontinued Given 01/04/2023 8:45 AM CDT 50 mg Given 01/03/2023 8:31 AM CDT 50 mg Given 01/02/2023 10:36 AM CDT 50 mg spironolactone (ALDACTONE) tablet 25 mg 25 mg, Oral, Daily, First dose on Wed12/29/22 at 0900, Until Discontinued, HAZARDOUS MEDICATION: wear single chemotherapy approved gloves. Do not open or split. If crushing, use approved closed-system crushing device for hazardous medications. Given 01/04/2023 8:45 AM CDT 25 mg Given 01/03/2023 8:31 AM CDT 25 mg Given 01/02/2023 10:36 AM CDT 25 mg traZODone (DESYREL) tablet 100 mg 100 mg, Oral, Nightly PRN, Sleep, Starting on Wed12/28/22 at 2254, Until Wed01/04/23 at 1556 Given 01/01/2023 8:4 5 PM CDT 100 mg Given 12/31/2022 8:40 PM CDT 100 mg Given 12/30/2022 8:40 PM CDT 100 mg vancomycin 1000 mg in NS 250 mL IVPB 1,000 mg, Intravenous, at 250 mL/hr, Every 24 hours, First dose on Wed12/29/22 at 1400, Until Discontinued New Bag 12/29/2022 1:46 PM CDT 1,000 mg 250 mL/hr vancomycin 2000 mg in NS 500 mL IVPB 2,000 mg, Intravenous, at 250 mL/hr, Once, 1 dose, On Wed12/28/22 at 1330 New Bag 12/28/2022 2:06 PM CDT 2,000 mg 250 mL/hr vancomycin 750 mg in NS 250 mL IVPB 750 mg, Intravenous, Every 24 hours, First dose (after last modification) on Wed12/30/22 at 2100, Until Discontinued New Bag 12/30/2022 9:56 PM CDT 750 mg warfarin (COUMADIN) pharmacy to dose placeholder Oral, See admin instructions, Starting on Wed12/28/22 at 1611, Until Wed01/04/23 at 1556, Warfarin Placeholder Only: Do NOT document administrations on this placeholder. (Use medication on MAR to document administrations or contact pharmacy if medication order not entered.) warfarin (COUMADIN) Split tab 1.5 mg 1.5 mg, Oral, Once, 1 dose, On Wed12/30/22 at 1700, HAZARDOUS MEDICATION: wear single chemotherapy approved gloves. Do not open or split. If crushing, use approved closed-system crushing device for hazardous medications. Given 12/30/2022 4:38 PM CDT 1.5 mg warfarin (COUMADIN) tablet 2 mg 2 mg, Oral, Once, 1 dose, On 12/28/22 at 2145, HAZARDOUS MEDICATION: wear single chemotherapy approved gloves. Do not open or split. If crushing, use approved closed-system crushing device for hazardous medications. Given 12/28/2022 9:34 PM CDT 2 mg warfarin (COUMADIN) tablet 2 mg 2 mg, Oral, Once, 1 dose, On Tu12/29/22 at 1700, HAZARDOUS MEDICATION: wear single chemotherapy approved gloves. Do not open or split. If crushing, use approved closed-system crushing device for hazardous medications. Given 12/29/2022 4:41 PM CDT 2 mg warfarin (COUMADIN) tablet 2 mg 2 mg, Oral, Once, 1 dose, On Taisha 12/31/22 at 1700, HAZARDOUS MEDICATION: wear single chemotherapy approved gloves. Do not open or split. If crushing, use approved closed-system crushing device for hazardous medications. Given 12/31/2022 10:01 PM CDT 2 mg warfarin (COUMADIN) tablet 3 mg 3 mg, Oral, Once, 1 dose, On Wed01/01/23 at 1700, HAZARDOUS MEDICATION: wear single chemotherapy approved gloves. Do not open or split. If crushing, use approved closed-system crushing device for hazardous medications. Given 01/01/2023 7:04 PM CDT 3 mg warfarin (COUMADIN) tablet 4 mg 4 mg, Oral, Once, 1 dose, On 01/02/23 at 1700, HAZARDOUS MEDICATION: wear single chemotherapy approved gloves. Do not open or split. If crushing, use approved closed-system crushing device for hazardous medications. Given 01/02/2023 5:04 PM CDT 4 mg warfarin (COUMADIN) tablet 5 mg 5 mg, Oral, Once, 1 dose, On Wed01/03/23 at 1700, HAZARDOUS MEDICATION: wear single chemotherapy approved gloves. Do not open or split. If crushing, use approved closed-system crushing device for hazardous medications. Given 01/03/2023 5:32 PM CDT 5 mg warfarin (COUMADIN) tablet 6 mg 6 mg, Oral, Once, 1 dose, On Wed01/04/23 at 1700, HAZARDOUS MEDICATION: wear single chemotherapy approved gloves. Do not open or split. If crushing, use approved closed-system crushing device for hazardous medications. documented in this encounter Active and Recently Administered Medications Times are shown in CDT. Scheduled Medication Order 01/02/2023 01/03/2023 01/04/2023 amoxicillin-clavulanate (AUGMENTIN) 875-125 MG tablet 875 mg 875 mg, Oral, Every 12 hours scheduled (2 times per day), First dose on Wed12/31/22 at 2100, Until Discontinued 1035 (Given - Provider: Keisha Mijares RN)2130 (Given - Provider: Abhijeet Mei RN) 08 (Given - Provider: Keisha Mijares RN)2005 (Given - Provider: Abhijeet Mei, YUNI) 08 (Given - Provider: Ivett Lafleur, YUNI) aspirin EC (ECOTRIN) tablet 81 mg 81 mg, Oral, Daily, First dose on Wed12/31/22 at 0900, Until Discontinued, Do not break, chew, or crush. 103 (Given - Provider: Keisha Mijares RN) 0831 (Given - Provider: Keisha Mijares RN) 0845 (Given - Provider: Ivett Lafleur, RN) atorvastatin (LIPITOR) tablet 80 mg 80 mg, Oral, Nightly at bedtime, First dose on Wed12/28/22 at 2100, Until Discontinued 2130 (Given - Provider: Abhijeet Mei, RN) 2005 (Given - Provider: Abhijeet Mei, RN) carvedilol (COREG) tablet 3.125 mg 3.125 mg, Oral, 2 times daily, First dose on Wed12/28/22 at 2100, Until Discontinued, Take with meal or snack 1036 (Given - Provider: Keisha Mijares RN)2130 (Given - Provider: Abhijeet Mei RN) 08 (Given - Provider: Keisha Mijares RN)2005 (Given - Provider: Abhijeet Mei RN) 08 (Given - Provider: Ivett Lafleur RN) fluticasone propionate (FLOVENT HFA) 44 MCG/ACT inhaler 1 puff(Linked Group 1) 1 puff, Inhalation, 2 times daily, First dose (after last modification) on Wed12/30/22 at 1900, Until Discontinued, Following administration, rinse mouth with water after use (do not swallow) to reduce risk of oral candidiasis. 0552 (Given - Provider: Taye Mujica RN)2136 (Given - Provider: Abhijeet Mei RN) 599 (Given - Provider: Abhijeet Mei RN)2005 (Given - Provider: Abhijeet Mei RN) 06 (Given - Provider: Abhijeet Mei RN) furosemide (LASIX) injection 60 mg (CANCELED) 60 mg, Intravenous, 2 times daily, First dose on Wed12/29/22 at 0900, Until Discontinued, Administer IV push 20-40mg/min. 103 (Given - Provider: Keisha Mijares RN) furosemide (LASIX) injection 60 mg 60 mg, Intravenous, Daily, First dose (after last modification) on Wed01/03/23 at 0900, Until Discontinued, Administer IV push 20-40mg/min. 08 (Given - Provider: Keisha Mijares RN) 08 (Given - Provider: Ivett Lafleur RN) gabapentin (NEURONTIN) capsule 300 mg 300 mg, Oral, Daily, First dose on Wed12/29/22 at 0900, Until Discontinued 103 (Given - Provider: Keisha Mijares RN) 08 (Given - Provider: Keisha Mijares RN) 0845 (Given - Provider: Ivett Lafleur RN) gabapentin (NEURONTIN) capsule 600 mg 600 mg, Oral, Nightly at bedtime, First dose on Wed12/28/22 at 2100, Until Discontinued 2130 (Given - Provider: Abhijeet Mei RN) 2005 (Given - Provider: Abhijeet Mei RN) insulin lispro (HUMALOG) injection 0-8 Units 0-8 Units, Subcutaneous, 4 times daily before meals and nightly, First dose on 12/28/22 at 1630, Until Discontinued, From sliding scale insulin subcut [...] 349, administer 8 units and Call Physician) 0630 (Not Given - Provider: Taye Mujica RN - Reason: Order parameters not met)1355 (Given - Provider: Keisha Mijares RN)1703 (Given - Provider: Keisha Mijares RN)2132 (Given - Provider: Abhijeet Mei RN) 0654 (Not Given - Provider: Abhijeet Mei RN - Reason: Order parameters not met)1152 (Not Given - Provider: Keisha Mijares RN - Reason: Order parameters not met)1733 (Given - Provider: Keisha Mijares RN)2056 (Given - Provider: Abhijeet Mei RN) 0621 (Not Given - Provider: Abhijeet Mei RN - Reason: Order parameters not met)1202 (Given - Provider: Ivett Lafleur RN) ipratropium-albuterol (COMBIVENT RESPIMAT) 20-100 MCG/ACT inhaler 1 puff 1 puff, Inhalation, 4 times daily, First dose on Wed01/02/23 at 1300, Until Discontinued, Shake Well. Prime inhaler prior to first use. Common canister 1300 (Not Given - Provider: Keisha Mijares RN - Reason: Patient sleeping)1704 (Given - Provider: Keisha Mijares RN)2133 (Given - Provider: Abhijeet Mei RN) 0832 (Given - Provider: Keisha Mijares RN)1315 (Not Given - Provider: Keisha Mijares RN - Reason: Patient sleeping)1733 (Given - Provider: Keisha Mijares RN)2005 (Given - Provider: Abhijeet Mei RN) 0845 (Given - Provider: Ivett Lafleur RN)1321 (Not Given - Provider: Ivett Lafleur RN - Reason: Patient/family declined) ipratropium-albuterol (DUONEB) 0.5-2.5 (3) MG/3ML nebulizer solution 3 mL (CANCELED)(Linked Group 1) 3 mL, Nebulization, 2 times daily, First dose (after last modification) on Wed12/30/22 at 1900, Until Discontinued 0736 (Given - Provider: Cristiano Harrington, CREDIT REVIEW OFFICER) isosorbide dinitrate-hydralazine (BIDIL) 20-37.5 MG tablet 0.5 tablet 0.5 tablet, Oral, 2 times daily, First dose (after last modification) on Wed01/02/23 at 2100, Until Discontinued 2136 (Given - Provider: Abhijeet Mei RN) 104 (Given - Provider: Keisha Mijares RN)2054 (Given - Provider: Abhijeet Mei RN) 0858 (Given - Provider: Ivett Lafleur RN) nystatin (MYCOSTATIN) powder Topical, 2 times daily, First dose on Wed12/29/22 at 0900, Until Discontinued 1037 (Given - Provider: Keisha Mijares RN)2137 (Given - Provider: Abhijeet Mei RN) 0833 (Given - Provider: Keisha Mijares RN)2005 (Given - Provider: Abhijeet Mei RN) 0845 (Given - Provider: Ivett Lafleur RN) pantoprazole EC (PROTONIX) tablet 40 mg 40 mg, Oral, Daily, First dose on Wed12/28/22 at 1700, Until Discontinued, Do not break, chew, or crush. 1036 (Given - Provider: Keisha Mijares RN) 0831 (Given - Provider: Keisha Mijares RN) 0845 (Given - Provider: Ivett Lfaleur, YUNI) rOPINIRole (REQUIP) tablet 4 mg 4 mg, Oral, Nightly at bedtime, First dose on Wed12/28/22 at 2100, Until Discontinued 2131 (Given - Provider: Abhijeet Mei RN) 2005 (Given - Provider: Abhijeet Mei RN) sertraline (ZOLOFT) tablet 50 mg 50 mg, Oral, Daily, First dose on Wed12/29/22 at 0900, Until Discontinued 1036 (Given - Provider: Keisha Mijares RN) 0831 (Given - Provider: Keisha Mijares RN) 0845 (Given - Provider: Ivett Lafleur, RN) spironolactone (ALDACTONE) tablet 25 mg 25 mg, Oral, Daily, First dose on Wed12/29/22 at 0900, Until Discontinued, HAZARDOUS MEDICATION: wear single chemotherapy approved gloves. Do not open or split. If crushing, use approved closed-system crushing device for hazardous medications. 1036 (Given - Provider: Keisha Mijares RN) 0831 (Given - Provider: Keisha Mijares RN) 0845 (Given - Provider: Ivett Lafleur, RN) warfarin (COUMADIN) pharmacy to dose placeholder(Linked Group 2) Oral, See admin instructions, Starting on Wed12/28/22 at 1611, Until Wed01/04/23 at 1556, Warfarin Placeholder Only: Do NOT document administrations on this placeholder. (Use medication on OCT to document administrations or contact pharmacy if medication order not entered.) warfarin (COUMADIN) tablet 4 mg (COMPLETED) 4 mg, Oral, Once, 1 dose, On 01/02/23 at 1700, HAZARDOUS MEDICATION: wear single chemotherapy approved gloves. Do not open or split. If crushing, use approved closed-system crushing device for hazardous medications. 1703 (Given - Provider: Keisha Mijares RN) warfarin (COUMADIN) tablet 5 mg (COMPLETED) 5 mg, Oral, Once, 1 dose, On 01/03/23 at 1700, HAZARDOUS MEDICATION: wear single chemotherapy approved gloves. Do not open or split. If crushing, use approved closed-system crushing device for hazardous medications. 173 (Given - Provider: Keisha Mijares RN) warfarin (COUMADIN) tablet 6 mg 6 mg, Oral, Once, 1 dose, On 01/04/23 at 1700, HAZARDOUS MEDICATION: wear single chemotherapy approved gloves. Do not open or split. If crushing, use approved closed-system crushing device for hazardous medications. PRN Medication Order 01/02/2023 01/03/2023 01/04/2023 acetaminophen (TYLENOL) tablet 650 mg 650 mg, Oral, Every 6 hours PRN, Mild pain (Scale 1 - 3), Starting on Wed12/28/22 at 1556, Until Wed01/04/23 at 1556, Maximum dose of acetaminophen is 4000 mg from all sources in 24 hours. albuterol sulfate HFA 108 (90 Base) MCG/ACT inhaler 2 puff 2 puff, Inhalation, Every 4 hours PRN, Wheezing, Shortness of breath, Starting on Wed12/28/22 at 1556, Until Wed01/04/23 at 1556 dextrose 10 % bolus infusion 125-250 mL 125-250 mL, Intravenous, Administer over 15 Minutes, As needed, Low Blood Sugar, Starting on Wed12/29/22 at 0651, Until Wed01/04/23 at 1556, If patient is verbally responsive and NPO [...] repeat until blood glucose reaches 70 mg/dL glucagon injection 1 mg 1 mg, Intramuscular, Once as needed, Other, Low blood sugar, 1 dose, Starting on Wed12/29/22 at 0651, Until Wed01/04/23 at 1556, If patient is verbally UNresponsive and no IV access with blood glucose less than 70 mg/dL. Do NOT repeat administration. glucose oral gel 32-64 mL 32-64 mL (15-30 g of dextrose), Oral, As needed, Low blood sugar, Starting on Wed12/29/22 at 0651, Until Wed01/04/23 at 1556, If patient is verbally responsive and taking thickened liquids or oral medications: Blood glucose less than 50 mg/dL - give 30 g of dextrose; repeat until blood glucose reaches 70 mg/dL Blood glucose 50-69 mg/dL - give 15 g of dextrose; repeat until blood glucose reaches 70 mg/dL 32 mL of glucose gel = 15 g of dextrose HYDROcodone-acetaminophe n (NORCO) 7.5-325 MG tablet 1 tablet 1 tablet, Oral, 2 times daily PRN, Moderate pain (Scale 4 - 7), Starting on Wed12/28/22 at 1600, Until Wed01/04/23 at 1556, Maximum dose of acetaminophen is 4000 mg from all sources in 24 hours. 1355 (Given - Provider: Keisha Mijares RN)2132 (Given - Provider: Abhijeet Mei RN) 2055 (Given - Provider: Abhijeet Mei RN) 1203 (Given - Provider: Ivett Lafleur, YUNI) melatonin 5 mg 5 mg, Oral, Nightly PRN, sleep, Starting on Wed12/28/22 at 2254, Until Wed01/04/23 at 1556 2005 (Given - Provider: Abhijeet Mei RN) morphine injection 2 mg 2 mg, Intravenous, Every 4 hours PRN, Severe pain (Scale 8 - 10), Starting on Wed12/28/22 at 1418, Until Wed01/04/23 at 1556 0101 (Given - Provider: Taye Mujica RN)1048 (Given - Provider: Keisha Mijares RN)1705 (Given - Provider: Keisha Mijares RN)2253 (Given - Provider: Abhijeet Mei RN) 0832 (Given - Provider: Keisha Mijares RN)1736 (Given - Provider: Keisha Mijares RN)2222 (Given - Provider: Abhijeet Mei RN) 0548 (Given - Provider: Abhijeet Mei RN)1349 (Given - Provider: Ivett Lafleur, YUNI) ondansetron (ZOFRAN) injection 4 mg 4 mg, Intravenous, Every 8 hours PRN, Nausea, Vomiting, Starting on Wed12/28/22 at 1556, Until Wed01/04/23 at 1556, IV push over 2-5 minutes. polyethylene glycol (GLYCOLAX) packet 17 g 17 g, Oral, Daily as needed, Constipation, Starting on Wed12/28/22 at 1556, Until Wed01/04/23 at 1556, If both senna and polyethylene glycol are ordered, use 1st; if no response by next dosing interval, go to next option. 1037 (Given - Provider: Keisha Mijares RN) traZODone (DESYREL) tablet 100 mg 100 mg, Oral, Nightly PRN, Sleep, Starting on Wed12/28/22 at 2254, Until Wed01/04/23 at 1556 Linked Groups Order Group 1: ipratropium-albuterol (DUONEB) 0.5-2.5 (3) MG/3ML nebulizer solution 3 mL (CANCELED)Jump to med 3 mL, Nebulization, 2 times daily, First dose (after last modification) on Wed12/30/22 at 1900, Until Discontinued And fluticasone propionate (FLOVENT HFA) 44 MCG/ACT inhaler 1 puffJump to med 1 puff, Inhalation, 2 times daily, First dose (after last modification) on Wed12/30/22 at 1900, Until Discontinued, Following administration, rinse mouth with water after use (do not swallow) to reduce risk of oral candidiasis. Group 2: Pharmacy to dose warfarin (COUMADIN) (CANCELED) Routine, Once, On Wed12/28/22 at 1612, For 1 occurrence, [facility] INR? 2-3, Indication for therapy (eg. afib)? afib And warfarin (COUMADIN) pharmacy to dose placeholderJump to med Oral, See admin instructions, Starting on Wed12/28/22 at 1611, Until Wed01/04/23 at 1556, Warfarin Placeholder Only: Do NOT document administrations on this placeholder. (Use medication on OCT to document administrations or contact pharmacy if medication order not entered.) documented in this encounter Additional Health Concerns Infection Onset Date Last Indicated Resolved Time COVID-19 Rule Out 01/04/2023 01/04/2023 01/04/2023 10:12 AM CDT Assessment Noted Time PHQ-9 Depression Total Score: 0 12/02/19 22 1:18 PM CDT documented as of this encounter Care Teams Electronic Coils Supervisor Relationship Specialty Start Date End Date Megan Infante MD [address] [place] [phone] PCP - General FAMILY PRACTICE 04/06/16 Amauri Pandey MD [place] [employer] Manager CARDIOVASCULAR DISEASE 04/06/16 12/28/23 Sharmila Davis, REPEATER OPERATOR, OVERSIZE LOAD PILOT ESCORT-C [address] [facility] [address] [phone] NURSE PRACTITIONER 01/04/17 04/03/24 Linda Block MD [address] [phone] [place] [employer] Manager CLINICAL CARDIAC ELECTROPHYSIOLOGY 02/08/17 04/12/23 Jeff Grace MD [address] [phone] Consulting Physician INTERNAL MEDICINE 02/20/19 3 Zaki Ortiz MD [address] [phone] Consulting Physician PULMONARY DISEASE 07/12/19 Concetta Acevedo MD [address] [place] [id number] Surgeon NEUROLOGICAL SURGERY 12/16/22 documented as of this encounter
--- OUTSIDE RECORDS SUMMARY | 2024-09-03 19:11 | XMS_ITS | Encounter Summary ---
Author Organization [facility] Address [address] [place] [address]. [place] [address] [place] [address] Care Team Providers Care Shampoo Person Name Role Phone Piyush Pandey MD Unavailable Unavailabl e Megan Infante MD Primary Care Provider [phone] Sharmila Davis APRN MUNITIONS HANDLER SUPERVISOR-C Unavailable [phone] Linda Block MD Unavailable [phone] Jeff Grace MD Unavailable Zaki Ortiz MD Unavailable [phone] Encounter Details Date Type Department Care Team (Latest Contact Info) Description 11/09/2022 Travel Social History Tobacco Use Types Packs/Day [...] st Contact Info) Description 09/25/2024 2:00 PM CAUSTIC CRESYLATE SHIFT SUPERINTENDENT Appointment [facility] [address] [place] [address] Zayra Powell, [facility] [address] [place] [address] 10/16/2024 3:30 PM CAUSTIC CRESYLATE SHIFT SUPERINTENDENT Office Visit [facility] [address] [place] [phone] Brit Gonzáles MD [address] [place] [address] documented as of this encounter Visit Diagnoses Not on filedocumented in this encounter Additional Health Concerns Assessment Noted Time PHQ-9 Depression Total Score: 0 12/02/19 22 1:18 PM CDT documented as of this encounter Care Teams Shampoo Person Relationship Specialty Start Date End Date Megan Infante MD [address] [facility] [place] [phone] PCP - General FAMILY PRACTICE 04/06/16 Piyush Pandey MD [place] [employer] Leader CARDIOVASCULAR DISEASE 04/06/16 12/28/23 Sharmila Davis, SQUASH CENTRE MANAGER, MUNITIONS HANDLER SUPERVISOR-C [address] [facility] [address] [place] [phone] NURSE PRACTITIONER 01/04/17 04/03/24 Linda Block MD [address] [phone] [place] [employer] Safety Leader CLINICAL CARDIAC ELECTROPHYSIOLOGY 02/08/17 04/12/23 Jfef Grace MD [address] [phone] Consulting Physician INTERNAL MEDICINE 02/20/19 3 Zaki Ortiz MD [address] [phone] Consulting Physician PULMONARY DISEASE 07/12/19 documented as of this encounter
--- OUTSIDE RECORDS SUMMARY | 2024-09-03 19:11 | XMS_ITS | Encounter Summary ---
Author Organization [facility] Address [address] [place] [address]. [place] [address] [place] [address] Care Team Providers Care Manager Cosmetic Name Role Phone Piyush Pandey MD Unavailable Unavailabl e Megan Infante MD Primary Care Provider [phone] Sharmila Davis APRN TECHNICAL INSTRUCTOR-C Unavailable [phone] Linda Block MD Unavailable [phone] Jeff Grace MD Unavailable Zaki Ortiz MD Unavailable [phone] Encounter Details Date Type Department Care Team (Latest Contact Info) Description 03/26/2022 Travel Social History Tobacco Use Types Packs/Day [...] Contact Info) Description 09/25/2024 2:00 PM RETAIL PRODUCT ADVISOR Appointment [facility] [address] [place] [address] Zayra Powell, [facility] [address] [place] [address] 10/16/2024 3:30 PM RETAIL PRODUCT ADVISOR Office Visit [facility] [address] [place] [phone] Brit Gonzáles MD [address] [place] [address] documented as of this encounter Visit Diagnoses Not on filedocumented in this encounter Additional Health Concerns Assessment Noted Time PHQ-9 Depression Total Score: 0 12/02/19 22 1:18 PM CDT documented as of this encounter Care Teams Manager Cosmetic Relationship Specialty Start Date End Date Megan Infante MD [address] [facility] [place] [phone] PCP - General FAMILY PRACTICE 04/06/16 Piyush Pandey MD [place] [employer] Manager CARDIOVASCULAR DISEASE 04/06/16 12/28/23 Sharmila Davis, POST FORM REMOVER, TECHNICAL INSTRUCTOR-C [address] [facility] [address] [place] [phone] NURSE PRACTITIONER 01/04/17 04/03/24 Linda Block MD [address] [phone] [place] [employer] Manager CLINICAL CARDIAC ELECTROPHYSIOLOGY 02/08/17 04/12/23 Jeff Grace MD [address] [phone] Consulting Physician INTERNAL MEDICINE 02/20/19 3 Zaki Ortiz MD [address] [phone] Consulting Physician PULMONARY DISEASE 07/12/19 documented as of this encounter
--- OUTSIDE RECORDS SUMMARY | 2024-09-03 19:11 | XMS_ITS | Encounter Summary ---
Author Organization [facility] Address [address] [place] [address]. [place] [address] [place] [address] Care Team Providers Care Director Of Medical Services Name Role Phone Piyush Pandey MD Unavailable Unavailabl e Megan Infante MD Primary Care Provider [phone] Sharmila Davis APRN CUT OFF SAW TENDER METAL-C Unavailable [phone] Linda Block MD Unavailable [phone] Jeff Grace MD Unavailable Zaki Ortiz MD Unavailable [phone] Encounter Details Date Type Department Care Team (Late st Contact Info) Description 11/09/2022 11:54 AM CDT - 11/09/2022 11:59 PM CDT Hospital Encounter [facility] [address] [place] [address] Megan Infante MD [address] [place] [address] Jacquie Martel, PA-C [address] [place] [address] Discharge Disposition: Home or Self [...] by mouth 2 (two) times daily. 10/09/2022 carvedilol 6.25 MG tablet Take 12.5 mg [...] total) by mouth daily. 3 furosemide (LASIX) 40 MG tablet Take 2 tablets (80 mg total) by mouth daily. 3 furosemide (LASIX) 80 MG tablet TAKE 1 1/2 TABLETS (120 MG) DAILY FOR 2 DAYS, THEN TAKE 1 TABLET (80 MG) DAILY 31 tablet 11 11/11/2022 3 gabapentin 100 MG capsule 2 capsules in the morning, 4 capsules in the afternoon, and 8 capsules at bedtime 02/25/2017 3 glipiZIDE XL (GLUCOTROL XL) 5 MG 24 hr tablet 2 tablets (10 mg total). 1-2 tablets daily in am 09/29/2022 3 glipiZIDE XL 5 MG 24 hr [...] tablet (20 mEq total) by mouth daily. 05/14/2022 3 rOPINIRole (REQUIP) 4 MG tablet Take 1 tablet (4 mg total) by mouth nightly at bedtime. 10/17/2022 4 rOPINIRole 2 MG tablet Take 4 mg by mouth nightly. 11/20/2021 3 sertraline 50 MG tablet Take 1 tablet (50 mg total) by mouth daily. 10/03/2021 spironolactone (ALDACTONE) 25 MG tablet Take 1 tablet (25 mg total) by mouth daily. 09/05/2022 3 traZODone (DESYREL) 150 MG tablet Take 2 tablets (300 mg total) by mouth nightly at bedtime. 03/24/2022 warfarin (COUMADIN) 1 MG tablet 2 tablets (2 mg total) daily. As directed 10/22/2022 3 warfarin (COUMADIN) 5 MG tablet 1 tablet (5 mg total) daily. As directed 05/14/2022 3 warfarin 10 MG tablet Take 5 mg by mouth in the morning. As directed 10/21/2021 3 documented as of this encounter Plan of Treatment Upcoming Encounters Date Type Department Care Team (Late st Contact Info) Description 09/25/2024 2:00 PM CAGE SHIFT MANAGER Appointment [facility] [address] [place], [place] [phone] Zayra Powell, BLUE LINE TRIMMER [address] [facility] [address] 10/16/2024 3:30 PM CAGE SHIFT MANAGER Office Visit [facility] [address] [place] [address] Brit Gonzáles MD [address] [place] [address] documented as of this encounter Procedures Procedure Name Priority Date/Time Associated Diagnosis Comments PROTHROMBIN TIME, VENOUS Routine 11/09/2022 12:11 PM CDT Atrial fibrillation status post cardioversion ([facility]) BASIC METABOLIC PANEL Routine 11/09/2022 12:11 PM CDT Hyperkalemia documented in this encounter Results * (ABNORMAL) PROTIME/INR, VENOUS (11/09/2022 12:11 PM CDT) PROTIME 46.8(H) 9.4 - 12.5 SEC 11/09/2022 12:25 PM CDT [facility] INR 4.0(H) 0.8 - 1.0 11/09/2022 12:25 PM CDT [facility] 11/09/2022 12:1 1 PM CDT us Jacquie Martel PA-C LABORATORY Final Resul t [facility] [address] [place] [address], * (ABNORMAL) BASIC METABOLIC PANEL (11/09/2022 12:11 PM CDT) SODIUM S/P/B 135(L) 136 - 145 MMOL/L 11/09/2022 12:29 PM CDT [facility] POTASSIUM S/P/B 5.6(H) 3.5 - 5.1 MMOL/L 11/09/2022 12:29 PM CDT [facility] CHLORIDE S/P/B 103 98 - 107 MMOL/L 11/09/2022 12:29 PM CDT [facility] CO2 26.4 21.0 - 32.0 MMOL/L 11/09/2022 12:29 PM CDT [facility] GLUCOSE 91 70 - 99 MG/DL 11/09/2022 12:29 PM T [facility] Comment: FASTING GLUCOSE 100 TO 125 MG/DL IS CONSISTENT WITH IMPAIRED FASTING GLUCOSE. FASTING GLUCOSE >125 MG/DL IS CONSISTENT WITH DIABETES. RANDOM GLUCOSE >200 MG/DL WITH HYPERGLYCEMIC SYMPTOMS IS CONSISTENT WITH DIABETES. PER ADA GUIDELINES BUN 32(H) 6 - 24 MG/DL 11/09/2022 12:29 PM T [facility] CREATININE S/P/B 1.69(H) 0.70 - 1.30 MG/DL 11/09/2022 12:29 PM CDT [facility] CALCIUM S/P/B 9.2 8.4 - 10.5 MG/DL 11/09/2022 12:29 PM T [facility] ANION GAP 5.6 5.0 - 15.0 MMOL/L 11/09/2022 12:29 PM T [facility] OSMOLALITY (CALC) 286 MOSM/KG 023 12:29 PM T [facility] Comment:REFERENCE RANGE NOT ESTABLISHED GFR ESTIMATE 44(L) >89 ML/MIN/1. 73 M2 11/09/2022 12:29 PM T [facility] GFR NOTES GFR REFERENCE S: 11/09/2022 12:29 PM T [facility] Comment: THE ESTIMATED GFR IS [...] Jacquie Martel PA-C LABORATORY Final Resul t [facility] [address] [phone] documented in this encounter Visit Diagnoses Diagnosis Hyperkalemia Hyperpotassemia Atrial fibrillation status post cardioversion ([facility]) Cardiac complications documented in this encounter Additional Health Concerns Assessment Noted Time PHQ-9 Depression Total Score: 0 12/02/19 22 1:18 PM CDT documented as of this encounter Care Teams Director Of Medical Services Relationship Specialty Start Date End Date Megan Infante MD [address] [facility] [place] [phone] PCP - General FAMILY PRACTICE 04/06/16 Piyush Pandey MD [place] Nursery Teacher CARDIOVASCULAR DISEASE 04/06/16 12/28/23 Sharmila Davis APRN, CUT OFF SAW TENDER METAL-C [address] [facility] [address] [place] [phone] NURSE PRACTITIONER 01/04/17 04/03/24 Linda Block MD [address] [facility] [address] [place] [phone] [place] Nursery Teacher CLINICAL CARDIAC ELECTROPHYSIOLOGY 02/08/17 04/12/23 Jeff Grace MD [address] [place] [phone] Consulting Physician INTERNAL MEDICINE 02/20/19 3 Zaki Ortiz MD [address] [place] [address] Consulting Physician PULMONARY DISEASE 07/12/19 documented as of this encounter
--- OUTSIDE RECORDS SUMMARY | 2024-09-03 19:11 | XMS_ITS | Encounter Summary ---
Author Organization [facility] Address [address] [place] [address]. [place] [address] [place] [address] Care Team Providers Care Shake Backboard Notcher Name Role Phone Piyush Pandey MD Unavailable Unavailabl e Megan Infante MD Primary Care Provider [phone] Sharmila Davis APRN JOB ANALYST-C Unavailable [phone] Linda Block MD Unavailable [phone] Jeff Grace MD Unavailable Zaki Ortiz MD Unavailable [phone] Romeo-Concetta Pond MD Unavailable + [phone] Encounter Details Date Type Department Care Team (Latest Contact Info) Description 12/24/2022 Travel Social History Tobacco Use Types Packs/Day [...] st Contact Info) Description 09/25/2024 2:00 PM CHANNEL REBUILDER Appointment [facility] [address] [place] [address] Zayra Powell, DIRECTOR OF RETAIL MERCHANDISING [address] [place] [address] 10/16/2024 3:30 PM CHANNEL REBUILDER Office Visit [facility] [address] [place] [phone] Brit Gonzáles MD [address] [place] [address] documented as of this encounter Visit Diagnoses Not on filedocumented in this encounter Additional Health Concerns Assessment Noted Time PHQ-9 Depression Total Score: 0 12/02/19 22 1:18 PM CDT documented as of this encounter Care Teams Shake Backboard Notcher Relationship Specialty Start Date End Date eMgan Infante MD [address] [facility] [place] [address] PCP - General FAMILY PRACTICE 04/06/16 Piyush Pandey MD [place] Utility Sales Representative CARDIOVASCULAR DISEASE 04/06/16 12/28/23 Sharmila Davis APRN, JOB ANALYST-C [address] [phone] NURSE PRACTITIONER 01/04/17 04/03/24 Linda Block MD [address] [phone] [place] Utility Sales Representative CLINICAL CARDIAC ELECTROPHYSIOLOGY 02/08/17 04/12/23 Jeff Grace MD [address] [address] Consulting Physician INTERNAL MEDICINE 02/20/19 3 Zaki Ortiz MD [address] [phone] Consulting Physician PULMONARY DISEASE 07/12/19 Concetta Acevedo MD [address] [place] [address] Surgeon NEUROLOGICAL SURGERY 12/16/22 documented as of this encounter
--- OUTSIDE RECORDS SUMMARY | 2024-09-03 19:11 | XMS_ITS | Encounter Summary ---
Author Organization [facility] Address [address] [place] [address]. [place] [address] [place] [address] Care Team Providers Care Farm Field Manager Name Role Phone Piyush Pandey MD Unavailable Unavailabl e Megan Infante MD Primary Care Provider [phone] Sharmila Davis APRN BEAMSTER-C Unavailable [phone] Linda Block MD Unavailable [phone] Jeff Grace MD Unavailable Zaki Ortiz MD Unavailable [phone] Encounter Details Date Type Department Care Team (Latest Contact Info) Description 02/26/2022 Travel Social History Tobacco Use Types Packs/Day [...] st Contact Info) Description 09/25/2024 2:00 PM WATER TEAM LEADER Appointment [facility] [address] [place] [address] Zayra Powell, [facility] [address] [place] [address] 10/16/2024 3:30 PM WATER TEAM LEADER Office Visit [facility] [address] [place] [address] Brit Gonzáles MD [address] [place] [address] documented as of this encounter Visit Diagnoses Not on filedocumented in this encounter Additional Health Concerns Assessment Noted Time PHQ-9 Depression Total Score: 0 12/02/19 22 1:18 PM CDT documented as of this encounter Care Teams Farm Field Manager Relationship Specialty Start Date End Date Megan Infante MD [address] [facility] [place] [phone] PCP - General FAMILY PRACTICE 04/06/16 Piyush Pandey MD [place] Industrial Maintenance [place] CARDIOVASCULAR DISEASE 04/06/16 12/28/23 Sharmila Davis, SET RIDER, BEAMSTER-C [address] [facility] [address] [place] [phone] NURSE PRACTITIONER 01/04/17 04/03/24 Linda Block MD [address] [phone] [place] Industrial [employer] [place] CLINICAL CARDIAC ELECTROPHYSIOLOGY 02/08/17 04/12/23 Jeff Grace MD [address] [address] Consulting Physician INTERNAL MEDICINE 02/20/19 3 Zaki Ortiz MD [address] [address] Consulting Physician PULMONARY DISEASE 07/12/19 documented as of this encounter
--- OUTSIDE RECORDS SUMMARY | 2024-09-03 19:12 | XMS_ITS | Encounter Summary ---
Author Organization [facility] Address [address] [place] [address]. [place] [address] [place] [address] Care Team Providers Care Internal Communications Manager Name Role Phone Piyush Pandey MD Unavailable Unavailabl e Megan Infante MD Primary Care Provider [phone] Sharmila Davis APRN, NP-C Unavailable [phone] Linda Block MD Unavailable [phone] Jeff Grace MD Unavailable Zaki Ortiz MD Unavailable [phone] Reason for Visit * Reason Onset Date Comments Concerns 12/10/2021 Encounter Details Date Type Department Care Team (Late st Contact Info) Description 12/10/2021 Telephone [facility] [address] [place] [phone] Piyush Pandey MD Concerns Social History Tobacco Use Types Packs/Day Years [...] suspected to have Coronavirus/COVID-19? No / Unsure 12/09/2021 10:23 AM CDT documented as of this encounter Progress Notes * Theresa Manzo RN - 12/11/2021 5:46 PM CDT rec'd the office note from Dr Infante office. * Theresa Manzo RN - 12/11/2021 2:56 PM CDT Cris with DR Infante called back to say pt needs seen soon for edema and +10 lb wt gain[address] Current Dr Pandey And Dr Grace pt. Pt will see Sharmila Davis MOP HANDLE ASSEMBLER on 12/15/21 9am PHI 5th floor. Penny will fax the most recent office vist note. * Macrella Freitas RN - 12/10/2021 10:57 AM CDT Patient seen by Dr. Grace yesterday in [place]. NO availability in [place] clinic for tomorrow 12/[address] Infante office, spoke with Penny- made aware no availability in [place] for tomorrow States she was told that Dr. Pandey comes to [place] and would have availability in [place] 12/[address] Pandey does not come to [place], next possibility of availability in [place] would be 01/29? OR sooner in [place] Penny will call back after speaking with provider. * Latasha Darden - 12/10/2021 10:16 AM CDT Pt primary called about getting the pt in for a follow up sheyla due to pt retaining water and 10+lbsweight gain pt primary would like to be contacted about working the pt in with dr pandey for [facility] 12/11/21 documented in this encounter Plan of Treatment Upcoming Encounters Date Type Department Care Team (Late st Contact Info) Description 09/25/2024 2:00 PM LOOP MACHINE OPERATOR Appointment [facility] [address] [place] [address] Zayra Powell, TRANSPORTER RADIOLOGY [address] [facility] [place] [address] 10/16/2024 3:30 PM LOOP MACHINE OPERATOR Office Visit [facility] [address] [facility] [place] [address] Brit Gonzáles MD [address] [place] [address] documented as of this encounter Visit Diagnoses Not on filedocumented in this encounter Additional Health Concerns Assessment Noted Time PHQ-9 Depression Total Score: 0 12/02/19 1:18 PM CDT documented as of this encounter Care Teams Internal Communications Manager Relationship Specialty Start Date End Date Megan Infante MD [address] [facility] [place] [address] PCP - General FAMILY PRACTICE 04/06/16 Piyush Pandey MD [place] Head Of Music CARDIOVASCULAR DISEASE 04/06/16 12/28/23 Sharmila Davis APRN, MOP HANDLE ASSEMBLER-C [address] [facility] [address] [place] [address] NURSE PRACTITIONER 01/04/17 04/03/24 Linda Block MD [address] [facility] [address] [place] [phone] [place] Head Of Music CLINICAL CARDIAC ELECTROPHYSIOLOGY 02/08/17 04/12/23 Jeff Grace MD [address] [place] [phone] Consulting Physician INTERNAL MEDICINE 02/20/19 3 Zaki Ortiz MD [address] [place] [address] Consulting Physician PULMONARY DISEASE 07/12/19 documented as of this encounter
--- OUTSIDE RECORDS SUMMARY | 2024-09-03 19:12 | XMS_ITS | Encounter Summary ---
Author Organization [facility] Address [facility] [place] [address] [place] [address] Care Team Providers Care Vice President Quality Assurance Name Role Phone Piyush Pandey MD Unavailable Unavailabl e Megan Infante MD Primary Care Provider [phone] Sharmila Davis APRN, NP-C Unavailable Linda Block MD Unavailable [phone] Jeff Grace MD Unavailable Zaki Ortiz MD Unavailable [phone] Reason for Visit * Reason Onset Date Comments Edema 01/02/2022 Encounter Details Date Type Department Care Team (Late st Contact Info) Description 01/02/2022 Telephone [facility] [address] [place] [phone] Piyush Pandey MD Edema Social History Tobacco Use Types Packs/Day Years [...] suspected to have Coronavirus/COVID-19? No / Unsure 12/15/2021 8:55 AM CDT documented as of this encounter Progress Notes * Marcella Freitas RN - 01/02/2022 11:13 AM CDT See other documentation regarding this message. Awaiting recommendations * Kim Alexandra LPN - 01/02/2022 11:02 AM CDT Amie with Megan Infante called the office to confirmed that Dr. Pandey's office received the labs that was sent yesterday with letter requesting recommendations on what to do with her lasix (currentlytaking 80 mg bid). Amie states the patient's legs are very swollen and weeping while in the office with them. Please call Amie back at [phone] documented in this encounter Plan of Treatment Upcoming Encounters Date Type Department Care Team (Late st Contact Info) Description 09/25/2024 2:00 PM HYDROLOGIST Appointment [facility] [address] [place] [address] Zayra Powell, SHIPPING CLERK PACKING [address] [place] [address] 10/16/2024 3:30 PM HYDROLOGIST Office Visit [facility] [address] [place] [phone] Brit Gonzáles MD [address] [place] [address] documented as of this encounter Visit Diagnoses Not on filedocumented in this encounter Additional Health Concerns Assessment Noted Time PHQ-9 Depression Total Score: 0 12/02/19 22 1:18 PM CDT documented as of this encounter Care Teams Vice President Quality Assurance Relationship Specialty Start Date End Date Megan Infante MD [address] [facility] [place] [phone] PCP - General FAMILY PRACTICE 04/06/16 Piyush Pandey MD [place] Blackjack Pit Boss CARDIOVASCULAR DISEASE 04/06/16 12/28/23 Sharmila Davis, SALAD BAR CLERK, SCARF GLUER-C [address] [facility] [address] [place] [phone] NURSE PRACTITIONER 01/04/17 04/03/24 Linda Block MD [address] [phone] [place] Blackjack Pit Boss CLINICAL CARDIAC ELECTROPHYSIOLOGY 02/08/17 04/12/23 Jeff Grace MD [address] [address] Consulting Physician INTERNAL MEDICINE 02/20/19 3 Zaki Ortiz MD [address] [phone] Consulting Physician PULMONARY DISEASE 07/12/19 documented as of this encounter
--- OUTSIDE RECORDS SUMMARY | 2024-09-03 19:12 | XMS_ITS | Encounter Summary ---
Author Organization [facility] Address [facility] [place] [address] [place] [address] Care Team Providers Care Personnel Generalist Manager Name Role Phone Piyush Pandey MD Unavailable Unavailabl e Megan Infante MD Primary Care Provider [phone] Sharmila Davis APRN CRYSTAL CUTTER-C Unavailable Linda Block MD Unavailable [phone] Jeff Grace MD Unavailable Zaki Ortiz MD Unavailable [phone] Reason for Visit * Auth/Cert Specialty Diagnoses / Procedures Referred By Yung sequeira Referred To Contact Diagnoses Dysphagia Encounter for screening colonoscopy DYSPHAGIA / SCREENING Procedures UPPER GI ENDOSCOPY,BIOPSY COLONOSCOPY,DIAGNOSTIC EGD WITH BIOPSY COLONOSCOPY Referral ID Status Reason Start Date Expiration Date Visits Re quested Visits Authorized [id number] 1 1 Encounter Details Date Type Department Care Team (Late st Contact Info) Description 01/27/2022 7:46 AM CDT - 01/27/2022 10:46 AM CDT Hospital Encounter [facility] [address] [place] [address] Gloria Navarro MD [address] [place] [address] Discharge Disposition: Home or Self Care [...] suspected to have Coronavirus/COVID-19? No / Unsure 01/27/2022 7:45 AM CDT documented as of this encounter Last Filed Vital Signs Vital Sign Reading Time Taken Comments Blood Pressure 127/73 01/27/2022 10:33 AM CDT Pulse 65 01/27/2022 10:33 AM CDT Temperature 36.4 ??C (97.6 ??F) 01/27/2022 10:33 AM C DT Respiratory Rate 16 01/27/2022 10:33 AM CDT Oxygen Saturation 99% 01/27/2022 10:33 AM CDT Inhaled Oxygen Concentration - - Weight 99.8 kg (220 lb) 01/20/2022 1:16 PM CDT Height 170.2 cm (5' 7 ) 01/20/2022 1:16 PM CDT Body Mass Index 34.46 01/20/2022 1:16 PM CDT documented in this encounter Discharge Instructions * Attachments The following attachments cannot be sent through Care Everywhere. * Moderate Sedation in Adults Discharge Instructions (Panamanian) * Esophageal Dilation (Panamanian) * Upper GI Endoscopy Discharge Instructions (Panamanian) * Colon Polypectomy Discharge Instructions (Panamanian) documented in this encounter Medications at Time [...] a day. 10/13/2021 3 clonazePAM 1 MG tablet Take 1 mg by mouth nightly as needed. 10/09/2016 2 docusate sodium 100 MG capsule Take 1 capsule (100 mg total) by mouth as needed for Constipation. enoxaparin 40 MG/0.4ML Solution Prefilled Syringe 01/21/2022 2 Fluticasone-Umec lidin-Vilant 100-62.5-25 MCG/INH AEROSOL POWDER, BREATH ACTIVATED Inhale into the lungs daily. 3 folic acid 1 MG tablet Take 1 tablet (1 mg total) by mouth daily. 3 furosemide 40 MG tablet Take 2 tablets (80 mg total) by mouth 2 (two) times daily. 30 tablet 12/15/2021 2 gabapentin 100 MG capsule 2 capsules in the morning, 4 capsules in the afternoon, and 8 capsules at bedtime 02/25/2017 3 glipiZIDE XL 5 MG 24 hr tablet Take 5 mg by mouth daily with breakfast. Do not break or crush tablet 3 HYDROcodone-acet aminophen 5-325 MG tabletIndication s:Acute Pain < 7 Day Supply Take 1 tablet by mouth every 6 (six) hours as needed. Indications: Acute Pain < 7 Day Supply 20 tablet 01/15/2022 2 hydrocodone-acet aminophen 7.5-325 MG tablet Take 1 tablet by mouth every 6 (six) hours as needed. 12/09/2016 2 hydrOXYzine 50 MG tablet Take 50 mg by mouth every 6 (six) hours as needed. 02/06/2020 2 losartan 50 MG tablet Take 1 tablet (50 mg total) by mouth daily. 12/02/2018 3 Melatonin 10 MG Cap Take 10 mg by mouth nightly as needed. 3 metFORMIN 500 MG tablet Take 1 tablet (500 mg total) by mouth 2 (two) times daily with meals. 3 metoclopramide 10 MG tablet Take 10 mg by mouth 3 (three) times a day. 11/11/2021 2 metOLazone 2.5 MG tablet Take 1 tablet (2.5 mg total) by mouth daily. 30 minutes prior to am furosemide (lasix) dose 30 tablet 01/02/2022 2 nystatin cream Apply topically as needed. 01/31/2020 3 NYSTOP powder 02/18/2021 2 pantoprazole EC 40 MG tablet Take 1 tablet (40 mg total) by mouth daily. potassium chloride CR 20 MEQ tablet Take 40 mEq by mouth daily. 2 rOPINIRole 2 MG tablet Take 4 mg by mouth nightly. 11/20/2021 3 sertraline 50 MG tablet Take 1 tablet (50 mg total) by mouth daily. 10/03/2021 trazodone 100 MG tablet Take 200 mg by mouth nightly at bedtime. at bedtime 3 03/16/2016 2 warfarin 1 MG tablet As directed 2 warfarin 10 MG tablet Take 5 mg by mouth in the morning. As directed 10/21/2021 3 documented as of this encounter H&P Notes * Gloria Navarro MD - 01/27/2022 8:55 AM CDT Attending Provider: Gloria Navarro MD PCP: MEGAN INFANTE MD Obie Sims is an 66-year-old male. Chief Complaint: Dysphagia and history of polyps HPI: Dysphagia and history of polyps Reason for Admission: No Known Allergies No current facility-administered medications on file prior to encounter. Current Outpatient Medications on File Prior to Encounter Medication Sig ??? albuterol sulfate HFA 108 (90 Base) MCG/ACT inhaler Inhale 1 puff into the lungs every 6 (six) hours as needed. ??? allopurinol 300 MG tablet Take 300 mg by mouth daily. ??? amlodipine 2.5 MG tablet Take 1 tablet (2.5 mg total) by mouth daily. ??? aspirin 81 MG chewable tablet Chew 81 mg by mouth daily. ??? atorvastatin 80 MG tablet Take 80 mg by mouth nightly at bedtime. ??? carvedilol 6.25 MG tablet Take 12.5 mg by mouth 2 (two) times a day. ??? clonazePAM 1 MG tablet Take 1 mg by mouth nightly as needed. ??? docusate sodium 100 MG capsule Take 100 mg by mouth as needed for Constipation. ??? Ictfaflewpg-Prvbzprzc-Kjaybf 100-62.5-25 MCG/INH AEROSOL POWDER, BREATH ACTIVATED Inhale into the lungs daily. ??? folic acid 1 MG tablet Take 1 mg by mouth daily. ??? furosemide 40 MG tablet Take 2 tablets (80 mg total) by mouth 2 (two) times daily. ??? gabapentin 100 MG capsule 2 tablets in the morning, 4 tablets in the afternoon, and 6 tablets at bedtime ??? glipiZIDE XL 5 MG 24 hr tablet Take 5 mg by mouth daily with breakfast. Do not break or crush tablet ??? hydrocodone-acetaminophen 7.5-325 MG tablet Take 1 tablet by mouth every 6 (six) hours as needed. ??? hydrOXYzine 50 MG tablet Take 50 mg by mouth every 6 (six) hours as needed. ??? losartan 50 MG tablet Take 50 mg by mouth daily. ??? Melatonin 10 MG Cap Take 10 mg by mouth nightly as needed. ??? metFORMIN 500 MG tablet Take 500 mg by mouth 2 (two) times daily with meals. ??? metoclopramide 10 MG tablet Take 10 mg by mouth 3 (three) times a day. ??? nystatin cream Apply topically as needed. ??? NYSTOP powder ??? pantoprazole EC 40 MG tablet Take 40 mg by mouth daily. ??? potassium chloride CR 20 MEQ tablet Take 40 mEq by mouth daily. ??? rOPINIRole 2 MG tablet Take 4 mg by mouth nightly. ??? sertraline 50 MG tablet Take 50 mg by mouth daily. ??? trazodone 100 MG tablet Take 200 mg by mouth nightly at bedtime. at bedtime ??? enoxaparin 40 MG/0.4ML Solution Prefilled Syringe ??? warfarin 1 MG tablet As directed ??? warfarin 10 MG tablet Take 5 mg by mouth in the morning. As directed Review of Systems Constitutional: Negative. Respiratory: Negative. Cardiovascular: Negative. Past Medical History: Diagnosis Date ??? Abnormal [...] (Incomplete) performed by Gloria Navarro MD at [facility] OR ??? HIP ARTHROPLASTY Left ??? KNEE ARTHROPLASTY Bilateral ??? REPAIR ROTATOR CUFF W/ OR W/O ACROMIOPLASTY Left ??? USE NEMO+CARDIOVERSION 03/24/2016 ??? XA A-FIB ABLATION 10/23/2015 PVI/WACA Social History Tobacco Use ??? Smoking status: Former Smoker Quit date: 1980 Years since quittin.4 ??? Smokeless tobacco: Former User Types: Chew Substance Use Topics ??? Alcohol use: Yes Comment: 6 beers per week No family history on file. Blood pressure (!) 145/71, pulse 70, temperature 96.1 ??F (35.6 ??C), temperature source Temporal, resp. rate 16, height 5' 7 (1.702 m), weight 99.8 kg (220 lb), SpO2 96 %. Physical Exam Cardiovascular: Rate and Rhythm: Normal rate. Pulmonary: Effort: Pulmonary effort is normal. Neurological: Mental Status: He is alert. Results for orders placed or performed during the hospital encounter of 01/24/22 PRE-SURGICAL/PRE-PROCEDURE CORONAVIRUS (COVID 19) Specimen: NASAL Result Value Ref Range Spec. Description NASAL CORONAVIRUS SARS COV 2 PCR (RESP) NEGATIVE NEGATIVE FIRST TEST UNKNOWN EMPLOYED IN HEALTHCARE NO SYMPTOMATIC DEFINED BY CDC UNKNOWN HOSPITALIZATION STATUS NO PATIENT IN ICU NO RESIDENT OF [facility] NO IMPRESSION: Patient Active Problem List Diagnosis ??? S/P [...] persistent asthma without complication ??? Leg edema Dysphagia and history of polyps PLAN: EGD and colonoscopy as planned GLORIA NAVARRO MD 01/27/2022 documented in this encounter Plan of Treatment Upcoming Encounters Date Type Department Care Team (Late st Contact Info) Description 09/25/2024 2:00 PM PERINATAL INSTRUCTOR Appointment [facility] [address] [place] [address] Zayra Powell Oli, [facility] [address] [place] [address] 10/16/2024 3:30 PM PERINATAL INSTRUCTOR Office Visit [facility] [address] [place] [phone] Brit Gonzáles MD [address] [place] [address] documented as of this encounter Procedures Procedure Name Priority Date/Time Associated Diagnosis Comments H PYLORI UREASE Routine 01/27/2022 9:21 AM CDT COLONOSCOPY FLX DX W/COLLJ SPEC WHEN PFRMD 01/27/2022 9:08 AM CDT Dysphagia Encounter for screening colonoscopy Case Notes VACCINATED. PCR NEG. EGD WITH DILAT STRICTURE 01/27/2022 9:08 AM CDT Dysphagia Encounter for screening colonoscopy Case Notes VACCINATED. PCR NEG. COLONOSCOPY 01/27/2022 6:48 AM CDT ENDOSCOPY (SCAN ORDER) 01/27/2022 6:48 AM CDT PATHOLOGY Routine 01/27/2022 12:00 AM CDT documented in this encounter Results * H PYLORI UREASE (01/27/2022 9:21 AM CDT) SPEC DESCRIPTION GASTRIC BIOPSY 01/27/2022 9:55 AM CDT [facility] SPECIAL REQUESTS NO SPECIAL REQUEST 01/27/2022 9:55 AM CDT [facility] DIRECT EXAM PRESUMPTIVE NEGATIVE FOR H. PYLORI 01/28/2022 10:18 AM CDT [facility] Tissue specimen (specimen) GASTRIC BIOPSY SPECIMEN / Unknown 01/27/2022 9:21 AM CDT Gloria Navarro MD MICROBIOLOGY - GENERAL ORDERA BLES Final Result [facility] [address] [place] [address], * Colonoscopy (01/27/2022 6:48 AM CDT) us Gloria Navarro MD GI PROCEDURE ORDERABLES Final Result * ENDOSCOPY (01/27/2022 6:48 AM CDT) us Gloria Navarro MD SCANNING Final Result * Pathology (01/27/2022 12:00 AM CDT) PATHOLOGY [facility] ? Department of Laboratory Medicine ?[address] [facility] ?[place] [address] ? , extension [phone] ? Pathology Report ? Surgical Pathology Report Name: OBIE SIMS ?Specimen #: [id number] Age: 12 1955 (Age: 66) ? Location: [facility] Sex: M ?Procedure Date: 01/27/2022 Hospital #: [id number] ?Date Received: 01/27/2022 Date Reported: 01/28/2022 Provider: GLORIA NAVARRO MD Source: A: Duodenum, biopsies B: Antrum, biopsies C: Colon, sigmoid, polyp Clinical History: Dysphagia and screening. Gross Description: Received in three parts: A) Received in formalin, labeled with a patient label and as duodenal biopsy are two pieces of pink-bonilla tissue, 0.1 and 0.2 cm. ??The specimen is entirely submitted in cassette A1. B) Received in formalin, labeled with a patient label and as antrum biopsy are two pieces of pink-bonilla tissue, each 0.2 cm. ??The specimen is entirely submitted in cassette B1. C) Received in formalin, labeled with a patient label and as sigmoid colon polyp are three pieces of pink-bonilla polypoid tissue ranging from 0.1 to 0.3 cm. The specimen is entirely submitted in cassette C1. FINAL DIAGNOSIS: A) SMALL BOWEL, DUODENUM, BIOPSY: ? - UNREMARKABLE SMALL BOWEL MUCOSA. B) STOMACH, BIOPSY: ? - GASTRIC ANTRAL MUCOSA WITH MINIMAL PATCHY CHRONIC GASTRITIS AND FEATURES OF ? REACTIVE GASTROPATHY/CHEM ICAL INJURY TYPE PATTERN. ? - NO HISTOLOGIC FEATURES OF HELICOBACTER PYLORI ARE APPRECIATED. ?? C) COLON, SIGMOID, POLYPECTOMY: ? - TUBULAR ADENOMA. Electronically Signed Out ? Taye Martinez MD-PhD [facility] Tissue specimen (specimen) DUODENAL STRUCTURE / Unknown 01/27/2022 9:20 AM CDT Tissue specimen (specimen) STOMACH STRUCTURE / Unknown 01/27/2022 9:22 AM CDT Tissue specimen (specimen) COLON STRUCTURE / Unknown 01/27/2022 9:41 AM CDT Gloria Navarro MD PATHOLOGY/CYTOLOGY ORDERABLES Final Result [facility] [address] [place] [address], [id number] documented in this encounter Visit Diagnoses Not on filedocumented in this encounter Administered Medications Inactive Administered Medications - up to 3 most recent administrations Medication Order MAR Action Action Date Dose Rate Site sodium chloride 0.9 % infusion 1 dose, Starting on 01/27/22 at 0601, Until 01/27/22 at 0812, Created by cabinet override sodium chloride 0.9% infusion at 10 mL/hr, Intravenous, Continuous, Starting on 01/27/22 at 0830, Until 01/27/22 at 1247, Infuse at TKO rate. Use mini-drip tubing for ESRD patients., Pre-Op Continued by Anesthesia 01/27/2022 9:13 AM CDT 10 mL/hr New Bag 01/27/2022 8:12 AM CDT 10 mL/hr documented in this encounter Active and Recently Administered Medications Times are shown in CDT. Continuous Medication Order 01/25/2022 01/26/2022 01/27/2022 sodium chloride 0.9% infusion at 10 mL/hr, Intravenous, Continuous, Starting on Tu01/27/22 at 0830, Until Tu01/27/22 at 1247, Infuse at TKO rate. Use mini-drip tubing for ESRD patients., Pre-Op 0812 (New Bag - Prov ider: Casandra Weiss RN)0913 (Continued by Anesthesia - Provider: Nicko Dolan CRNA)0944 (Anesthesia Volume Adjustment - Provider: Nicko Dolan CRNA)0950 (Anesthesia Volume Adjustment - Provider: Nicko Dolan CRNA)1030 (Infusion Stop Time - Provider: Iza Jordan RN) documented in this encounter Additional Health Concerns Assessment Noted Time PHQ-9 Depression Total Score: 0 12/02/19 22 1:18 PM CDT documented as of this encounter Care Teams Personnel Generalist Manager Relationship Specialty Start Date End Date Megan Infante MD [address] [place] [address] PCP - General FAMILY PRACTICE 04/06/16 Piyush Pandey MD [place] Setup Operator CARDIOVASCULAR DISEASE 04/06/16 12/28/23 Sharmila Davis APRN, CRYSTAL CUTTER-C [address] [facility] [address] [place] [place] [phone] NURSE PRACTITIONER 01/04/17 04/03/24 Linda Block MD [address] [address] [place] Setup Operator CLINICAL CARDIAC ELECTROPHYSIOLOGY 02/08/17 04/12/23 Jeff Grace MD [address] [phone] Consulting Physician INTERNAL MEDICINE 02/20/19 3 Zaki Ortiz MD [address] [phone] Consulting Physician PULMONARY DISEASE 07/12/19 documented as of this encounter
--- OUTSIDE RECORDS SUMMARY | 2024-09-03 19:12 | XMS_ITS | Encounter Summary ---
Author Organization [facility] Address [address] [place] [address]. [place] [address] [place] [address] Care Team Providers Care Mail Carrier Technician Name Role Phone Piyush Pandey MD Unavailable Unavailabl e Megan Infante MD Primary Care Provider [phone] Sharmila Davis APRN COATER ASSOCIATE-C Unavailable [phone] Linda Block MD Unavailable [phone] Jeff Grace MD Unavailable Zaki Ortiz MD Unavailable [phone] Encounter Details Date Type Department Care Team (Latest Contact Info) Description 12/09/2021 Travel Social History Tobacco Use Types Packs/Day [...] AM CDT documented as of this encounter Plan of Treatment Upcoming Encounters Date Type Department Care Team (Late st Contact Info) Description 09/25/2024 2:[address] [facility] [address] [place], [place] [phone] Zayra Powell, SALES DEMONSTRATOR [address] [place] [address] 10/16/2024 3:30 PM ELECTRODYNAMICIST Office Visit [facility] [phone] [place] [phone] Brit Gonzáles MD [address], [place] [phone] documented as of this encounter Visit Diagnoses Not on filedocumented in this encounter Additional Health Concerns Assessment Noted Time PHQ-9 Depression Total Score: 0 12/02/19 22 1:18 PM CDT documented as of this encounter Care Teams Mail Carrier Technician Relationship Specialty Start Date End Date Megan Infante MD [address] [place] [phone] PCP - General FAMILY PRACTICE 04/06/16 Piyush Pandey MD [place] Tax Appraiser CARDIOVASCULAR DISEASE 04/06/16 12/28/23 Sharmila Davis, LOSS PREVENTION CONSULTANT, COATER ASSOCIATE-C [address] [facility] [address] [place] [phone] NURSE PRACTITIONER 01/04/17 04/03/24 Linda Block MD [address] [facility] [address] [place] [phone] [place] Tax Appraiser CLINICAL CARDIAC ELECTROPHYSIOLOGY 02/08/17 04/12/23 Jeff Grace MD [address] [facility] [address] [phone] Consulting Physician INTERNAL MEDICINE 02/20/19 3 Zaki Ortiz MD [address] [facility] [address] [place] [phone] Consulting Physician PULMONARY DISEASE 07/12/19 documented as of this encounter
--- OUTSIDE RECORDS SUMMARY | 2024-09-03 19:12 | XMS_ITS | Encounter Summary ---
Author Organization [facility] Address [facility] [place] [address] [place] [address] Care Team Providers Care Quality Compliance Manager Name Role Phone Piyush Pandey MD Unavailable Unavailabl e Megan Infante MD Primary Care Provider [phone] Sharmila Davis APRN HOT DOG VENDER-C Unavailable Linda Block MD Unavailable [phone] Jeff Grace MD Unavailable Zaki Ortiz MD Unavailable [phone] Encounter Details Date Type Department Care Team (Late st Contact Info) Description 01/15/2022 Orders Only [facility] [address] [place] [address], [facility] [address] [place] [address] Jacinto Hamilton MD [address] [place], [place] [phone] Social History Tobacco Use Types Packs/Day Years [...] on file documented as of this encounter Plan of Treatment Upcoming Encounters Date Type Department Care Team (Late st Contact Info) Description 09/25/2024 2:00 PM C [address]OPER Appointment [facility] [address] [place] [address] Zayra Powell, SKEIN WINDING OPERATOR [address] [facility] [place] [address] 10/16/2024 3:30 PM C DEVELOPER Office Visit [facility] [address] [place] [phone] Brit Gonzáles MD [address] [place] [address] documented as of this encounter Results * XR ANKLE RT M3V (01/15/2022 12:51 PM CDT) Anatomical Region Laterality Modality Ankle Radiographic Stephie ging 01/15/2022 3:09 PM CDT Impressions 01/15/2022 3:11 PM CDT IMPRESSION: Unchanged radiographic appearance of the minimally displaced distal fibular fracture. No significant healing changes noted. Ordered By: JACINTO HAMILTON Interpreted By: Misael Diaz MD, 01/15/2022 3:09 PM Narrative 01/15/2022 3:11 PM CDT Examination: XR ANKLE RT M3V Exam time: 01/15/2022 12:51 PM Clinical history: Right ankle pain. Comparison: Radiographs January 13, 2022. Technique: AP, lateral and oblique views. Findings: A minimally displaced fracture is seen involving the distal fibula at the level of the ankle mortise. This appears similar to the previous radiographs. No distinct healing periosteal changes are identified at this time. No other fractures are seen. The ankle mortise appears preserved. The talar dome is intact. No destructive osseous process identified. Mild soft tissue edema is noted about the ankle. Small calcaneal spur. Vascular calcifications are present. Procedure Note Misael Diaz MD - 01/15/2022 Examination: XR ANKLE RT M3V Exam time: 01/15/2022 12:51 PM Clinical history: Right ankle pain. Comparison: Radiographs January 13, 2022. Technique: AP, lateral and oblique views. Findings: A minimally displaced fracture is seen involving the distal fibula at thelevel of the ankle mortise. This appears similar to the previousradiographs. No distinct healing periosteal changes are identified at thistime. No other fractures are seen. The ankle mortise appears preserved.The talar dome is intact. No destructive osseous process identified. Mildsoft tissue edema is noted about the ankle. Small calcaneal spur. Vascularcalcifications are present. IMPRESSION: Unchanged radiographic appearance of the minimally displaced distalfibular fracture. No significant healing changes noted. Ordered By: JACINTO HAMILTON Interpreted By: Misael Diaz MD, 01/15/2022 3:09 PM Jacinot Hamilton MD GENERAL IMAGING Final Result documented in this encounter Visit Diagnoses Diagnosis Acute right ankle pain- Primary Acute right ankle pain documented in this encounter Additional Health Concerns Assessment Noted Time PHQ-9 Depression Total Score: 0 12/02/19 22 1:18 PM CDT documented as of this encounter Care Teams Quality Compliance Manager Relationship Specialty Start Date End Date Megan Infante MD [address] [facility] [place] [phone] PCP - General FAMILY PRACTICE 04/06/16 Piyush Pandey MD [place] Balloon Pilot CARDIOVASCULAR DISEASE 04/06/16 12/28/23 Sharmila Davis APRN, HOT DOG VENDER-C [address] [facility] [address] [place] [address] NURSE PRACTITIONER 01/04/17 04/03/24 Linda Block MD [address] [facility] [address] [place] [phone] [place] Balloon Pilot CLINICAL CARDIAC ELECTROPHYSIOLOGY 02/08/17 04/12/23 Jeff Grace MD [address] [place] [phone] Consulting Physician INTERNAL MEDICINE 02/20/19 3 Zaki Ortiz MD [address] [place] [address] Consulting Physician PULMONARY DISEASE 07/12/19 documented as of this encounter
--- OUTSIDE RECORDS SUMMARY | 2024-09-03 19:12 | XMS_ITS | Encounter Summary ---
Author Organization [facility] Address [address] [place] [address]. [place] [address] [place] [address] Care Team Providers Care Varitypist Name Role Phone Piyush Pandye MD Unavailable Unavailabl e Megan Infante MD Primary Care Provider [phone] Sharmila Davis APRN SHAGGER-C Unavailable [phone] Linda Block MD Unavailable [phone] Jeff Grace MD Unavailable Zaki Ortiz MD Unavailable [phone] Encounter Details Date Type Department Care Team (Latest Contact Info) Description 02/01/2022 Travel Social History Tobacco Use Types Packs/Day [...] serious difficulty walking or climbing stairs? Yes 02/01/2022 5:00 AM Sona Deleon RN Activ e * Question Answer Date of Assessment Author Status Do you have difficulty dressing or bathing? No 02/01/2022 5:00 AM Sona Deleon RN A ctive Because of a physical, mental, or emotional condition, do you have difficulty doing errands alone such as visiting a doctor's office or shopping? No 02/01/2022 5:00 AM Sona Deleon RN Active * RETIRED Are you deaf or do you have serious difficulty hearing Answer Date of Assessment Author Status No 02/01/2022 5:00 AM JANEY Activ e * RETIRED Are you blind or do you have serious difficulty seeing, even when wearing glasses? Answer Date of Assessment Author Status No 02/01/2022 5:00 AM JANEY Activ e * Do you have serious [...] difficulty concentrating, remembering, or making decisions? No 02/01/2022 5:00 AM Sona Deleon RN A ctive * Because of a physical, mental, or emotional condition, do you have serious difficulty concentrating, remembering, or making decisions? Answer Entry Date Author Status No 02/01/2022 5:00 AM Sona Deleon RN Active documented in this encounter Plan of Treatment Upcoming Encounters Date Type Department Care Team (Late st Contact Info) Description 09/25/2024 2:00 PM ASSISTANT PROFESSOR OF ENGLISH Appointment [facility] [address] [place] [address] Zayra Powell, ELECTRIC METER REPAIRER [address] [address] 10/16/2024 3:30 PM ASSISTANT PROFESSOR OF ENGLISH Office Visit [facility] [address] [place] [address] Brit Gonzáles MD [address] [place] [address] documented as of this encounter Visit Diagnoses Not on filedocumented in this encounter Additional Health Concerns Assessment Noted Time PHQ-9 Depression Total Score: 0 12/02/19 22 1:18 PM CDT documented as of this encounter Care Teams Varitypist Relationship Specialty Start Date End Date Megan Infante MD [address] [facility] [place] [address] PCP - General FAMILY PRACTICE 04/06/16 Piyush Pandey MD [place] Account Supervisor CARDIOVASCULAR DISEASE 04/06/16 12/28/23 Sharmila Davis APRN, SHAGGER-C [id number] [place] [address] NURSE PRACTITIONER 01/04/17 04/03/24 Lidna Block MD [address] [facility] [address] [place] [address] [place] Account Supervisor CLINICAL CARDIAC ELECTROPHYSIOLOGY 02/08/17 04/12/23 Jeff Grace MD [address] [facility] [address] [place] [address] Consulting Physician INTERNAL MEDICINE 02/20/19 3 Zaki Ortiz MD [address] [facility] [address] [place] [address] Consulting Physician PULMONARY DISEASE 07/12/19 documented as of this encounter
--- OUTSIDE RECORDS SUMMARY | 2024-09-03 19:12 | XMS_ITS | Encounter Summary ---
Author Organization [facility] Address [address] [place] [address]. [place] [address] [place] [address] Care Team Providers Care Dairy Consultant Name Role Phone Piyush Pandey MD Unavailable Unavailabl e Megan Infante MD Primary Care Provider [phone] Sharmila Davis APRN DIRECTOR CUSTOM-C Unavailable [phone] Linda Block MD Unavailable [phone] Jeff Grace MD Unavailable Zaki Ortiz MD Unavailable [phone] Encounter Details Date Type Department Care Team (Latest Contact Info) Description 01/24/2022 Travel Social History Tobacco Use Types Packs/Day [...] suspected to have Coronavirus/COVID-19? No / Unsure 01/24/2022 9:07 AM CDT documented as of this encounter Plan of Treatment Upcoming Encounters Date Type Department Care Team (Late st Contact Info) Description 09/25/2024 2:00 PM RISK MANAGEMENT CONSULTANT Appointment [facility] [address] [place] [address] Zayra Powell, HAND SHOES SEWER [address] [place], [place] [address] 10/16/2024 3:30 PM RISK MANAGEMENT CONSULTANT Office Visit [facility] [address] [place] [address] Brit Gonzáles MD [address] [place] [address] documented as of this encounter Visit Diagnoses Not on filedocumented in this encounter Additional Health Concerns Infection Onset Date Last Indicated Resolved Time COVID-19 Rule Out 01/24/2022 01/24/2022 01/24/2022 6:41 PM CDT Assessment Noted Time PHQ-9 Depression Total Score: 0 12/02/19 22 1:18 PM CDT documented as of this encounter Care Teams Dairy Consultant Relationship Specialty Start Date End Date Megan Infante MD [address] [facility] [place] [address] PCP - General FAMILY PRACTICE 04/06/16 Piyush Pandey MD [place] Skein Winding Operator CARDIOVASCULAR DISEASE 04/06/16 12/28/23 Sharmila Davis APRN, DIRECTOR CUSTOM-C [address] [facility] [address] [place] [address] NURSE PRACTITIONER 01/04/17 04/03/24 Linda Block MD [address] [facility] [address] [place] [address] [place] Skein Winding Operator CLINICAL CARDIAC ELECTROPHYSIOLOGY 02/08/17 04/12/23 Jeff Grace MD [address] [place] [address] Consulting Physician INTERNAL MEDICINE 02/20/19 3 Zaki Ortiz MD [address] [place] [address] Consulting Physician PULMONARY DISEASE 07/12/19 documented as of this encounter
--- OUTSIDE RECORDS SUMMARY | 2024-09-03 19:12 | XMS_ITS | Encounter Summary ---
Author Organization [facility] Address [address] [place] [address]. [place] [address] [place] [address] Care Team Providers Care Foot Setter Name Role Phone Piyush Pandey MD Unavailable Unavailabl e Megan Infante MD Primary Care Provider [phone] Sharmila Davis APRN PIANO MOVER-C Unavailable [phone] Linda Block MD Unavailable [phone] Jeff Grace MD Unavailable Zaki Ortiz MD Unavailable [phone] Reason for Visit * Reason Comments Ankle/foot Pain RIGHT (DOI: 12/28/2021 ) Encounter Details Date Type Department Care Team (Latest Contact Info) Description 01/15/2022 1:00 PM CDT Office Visit [facility] [address] [address] Jacinto Hamilton MD [address] [place] [address] Ankle/foot Pain (RIGHT (DOI: 12/28/2021)) Social History Tobacco Use Types Packs/Day Years [...] suspected to have Coronavirus/COVID-19? No / Unsure 01/15/2022 12:42 PM CDT documented as of this encounter Last Filed Vital Signs Vital Sign Reading Time Taken Comments Blood Pressure - - Pulse - - Temperature - - Respiratory Rate - - Oxygen Saturation - - Inhaled Oxygen Concentration - - Weight 97.5 kg (215 lb) 01/15/2022 12:45 PM CDT Height 167.6 cm (5' 6 ) 01/15/2022 12:45 PM CDT Body Mass Index 34.7 01/15/2022 12:45 PM CDT documented in this encounter Progress Notes * Jacinto Hamilton MD - 01/15/2022 1:00 PM CDT Chief Complaint: Ankle/foot Pain (RIGHT (DOI: 12/28/2021)) History of Present Illness: Mendez Lay is a 66-year-old male who presents to the office for Ankle/foot Pain (RIGHT (DOI: 12/28/2021)) New patient presents today for RIGHT ankle pain. He states he tripped 12/28/2021 walking into his house and missed a step. He states he thinks he twisted it. His pain is located in the lateral aspect. He states he did have some bruising and swelling, but not much. He was seen in [place] ER approximately 2 weeks after the injury. He denies any numbness. Ambulation worsens the pain. He is having night time pain. He has been taking Hydrocodone for his knee pain with fair relief. He is using a cane for ambulation. He is retired. ROS: See HPI for pertinent positives Problem List: Patient Active Problem List Diagnosis ??? S/P ablation of atrial fibrillation ??? LV dysfunction ??? Essential hypertension ??? Mixed hyperlipidemia ??? Diabetes mellitus, type II (CMS/HCC) ??? Coronary artery disease involving sel[place]ik coronary artery of sel[place] heart without angina pectoris ??? COPD (chronic [...] persistent asthma without complication ??? Leg edema History: Past Medical History: Diagnosis Date ??? [...] performed by Kilo Navarro MD at [facility] OR ??? HIP ARTHROPLASTY Left ??? KNEE ARTHROPLASTY Bilateral ??? REPAIR ROTATOR CUFF W/ OR W/O ACROMIOPLASTY Left ??? USE NEMO+CARDIOVERSION 03/24/2016 ??? XA A-FIB ABLATION 10/23/2015 PVI/WACA No family history on file. Family Status Relation Name Status ??? Mother [...] ??? clonazePAM 1 MG tablet, Take 1 mg by mouth nightly as needed. , Disp: , Rfl: ??? docusate sodium 100 MG capsule, Take 100 mg by mouth as needed for Constipation., Disp: , Rfl: ??? Qcioqsyzcuq-Uxzqavhja-Xuvuxi 100-62.5-25 MCG/INH AEROSOL POWDER, BREATH ACTIVATED, Inhale into the lungs daily., Disp: , Rfl: ??? folic acid 1 MG tablet, Take 1 mg by mouth daily., Disp: , Rfl: ??? furosemide 40 MG tablet, Take 2 tablets (80 mg total) by mouth 2 (two) times daily., Disp: 30 tablet, Rfl: 0 ??? [...] Supply, Disp: 20 tablet, Rfl: 0 ??? hydrocodone-acetaminophen 7.5-325 MG tablet, Take 1 tablet by mouth every 6 (six) hours as needed. , Disp: , Rfl: ??? hydrOXYzine 50 MG tablet, Take 50 mg by mouth every 6 (six) hours as needed. , Disp: , Rfl: ??? losartan 50 MG tablet, Take 50 mg by mouth daily. , Disp: , Rfl: ??? Melatonin 10 MG Cap, Take 10 mg by mouth nightly as needed., Disp: , Rfl: ??? metFORMIN 500 MG tablet, Take 500 mg by mouth 2 (two) times daily with meals., Disp: , Rfl: ??? metoclopramide 10 MG tablet, Take 10 mg by mouth 3 (three) times a day., Disp: , Rfl: ??? metOLazone 2.5 MG tablet, Take 1 tablet (2.5 mg total) by mouth daily. 30 minutes prior to am furosemide (lasix) dose, Disp: 30 tablet, Rfl: 0 ??? nystatin cream, Apply topically as needed. , Disp: , Rfl: ??? NYSTOP powder, , Disp: , Rfl: ??? pantoprazole EC 40 MG tablet, Take 40 mg by mouth daily., Disp: , Rfl: ??? potassium chloride CR 20 MEQ tablet, Take 40 mEq by mouth daily. , Disp: , Rfl: ??? rOPINIRole 2 MG tablet, Take 4 mg by mouth nightly., Disp: , Rfl: ??? sertraline 50 MG tablet, Take 50 mg by mouth daily., Disp: , Rfl: ??? trazodone 100 MG tablet, Take 200 mg by mouth nightly at bedtime. at bedtime, Disp: , Rfl: 3 ??? warfarin 10 MG tablet, Take 5 mg by mouth in the morning. As directed, Disp: , Rfl: ??? warfarin 1 MG tablet, As directed, Disp: , Rfl: No Known Allergies Objective: Body mass index is 34.7 kg/m??. Last Recorded Weight 01/15/22 1245 Weight: 97.5 kg (215 lb) Physical exam: Constitutional: Alert and in no acute distress. Neurological: The patient was oriented to person, place, and time. Eyes: The sclera and conjunctiva were normal ENT: Hearing was normal. Neck: The appearance of the neck was normal. Cardiovascular: Normal pulses. Pulmonary: No respiratory distress. Skin: No injuries or skin lesion. Musculoskeletal: Right ankle exam demonstrates pretty minimal swelling. His range of motion is restricted and he has some tenderness laterally over the distal fibula with no significant tenderness medially. He is in a sneaker and is using a cane Results: X-ray was reviewed and he has a distal fibula fracture at the level of the mortise with minimal displacement. The mortise is symmetric Assessment: Encounter Diagnose(s) ICD-10-CM ICD-9-CM SNOMED CT(R) 1. Other closed fracture of distal end of right fibula, initial encounter S82.831A 824.8 CLOSED FRACTURE OF DISTAL FIBULA HYDROcodone-acetaminophen 5-325 MG tablet Plan: Patient is already been walking on his broken ankle for 2 weeks and it is held together pretty wellso I would think surgery is unlikely. I will at least provide little protection with a cam boot which she can weight-bear in and I will see him back in 2 weeks with x-rays to make sure everything staying lined up. He is struggling with sleeping at night because of discomfort and I will give him Bartley Follow up: Return in about 2 weeks (around 01/29/2022). JACINTO HAMILTON MD documented in this encounter Plan of Treatment Upcoming Encounters Date Type Department Care Team (Late st Contact Info) Description 09/25/2024 2:00 PM ROCK CLIMBING INSTRUCTOR Appointment [facility] [address] [place] [address] Zayra Powell, PROCUREMENT ANALYST [address] [place] [address] 10/16/2024 3:30 PM ROCK CLIMBING INSTRUCTOR Office Visit [facility] [address] [place] [address] Brit Gonzáles MD [address] [place], [place] [id number] documented as of this encounter Visit Diagnoses Diagnosis Other closed fracture of distal end of right fibula, initial encounter- Primary documented in this encounter Additional Health Concerns Assessment Noted Time PHQ-9 Depression Total Score: 0 12/02/19 22 1:18 PM CDT documented as of this encounter Care Teams Foot Setter Relationship Specialty Start Date End Date Megan Infante MD [address] [facility] [address] [place] [address] PCP - General FAMILY PRACTICE 04/06/16 Piyush Pandey MD [place] Senior Data Modeler CARDIOVASCULAR DISEASE 04/06/16 12/28/23 Sharmila Davis APRN, PIANO MOVER-C [address] [facility] [address] [place] [address] NURSE PRACTITIONER 01/04/17 04/03/24 Linda Block MD [address] [facility] [address] [place] [address] [place] Senior Data Modeler CLINICAL CARDIAC ELECTROPHYSIOLOGY 02/08/17 04/12/23 Jeff Grace MD [address] [place] [address] Consulting Physician INTERNAL MEDICINE 02/20/19 3 Zaki Ortiz MD [address] [place] [address] Consulting Physician PULMONARY DISEASE 07/12/19 documented as of this encounter
--- OUTSIDE RECORDS SUMMARY | 2024-09-03 19:12 | XMS_ITS | Encounter Summary ---
Author Organization [facility] Address [facility] [place] [address] [place] [address] Care Team Providers Care Lithographic Proofer Name Role Phone Piyush Pandey MD Unavailable Unavailabl e Megan Infante MD Primary Care Provider [phone] Sharmila Davis APRN SHAFT REPAIRER-C Unavailable Linda Block MD Unavailable [phone] Jeff Grace MD Unavailable Zaki Ortiz MD Unavailable [phone] Encounter Details Date Type Department Care Team (Late st Contact Info) Description 01/20/2022 Orders Only [facility] [address] [place] [address], [facility] [address] [place] [address] Jacinto Vega MD [address] [place], [place] [id number] Social History Tobacco Use Types Packs/Day Years [...] PM CDT documented as of this encounter Plan of Treatment Upcoming Encounters Date Type Department Care Team (Late st Contact Info) Description 09/25/2024 2:00 PM SUPERVISOR CEREAL Appointment [facility] [address] [place] [address] Zayra Powell, ROUTE MANAGER [address] [facility] [place] [address] 10/16/2024 3:30 PM SUPERVISOR CEREAL Office Visit [facility] [address] [place] [address] Brit Gonzáles MD [address] [place] [address] documented as of this encounter Results * XR ANKLE RT M3V (01/29/2022 3:02 PM CDT) Anatomical Region Laterality Modality Ankle Radiographic Stephie ging 01/30/2022 8:40 AM CDT Impressions 01/30/2022 8:42 AM CDT Impression: 1. The lateral malleolar fracture is somewhat less conspicuous likely due to some degree of healing. 2. Persistent soft tissue swelling. 3. Moderate hindfoot and midfoot arthritis. Sizable calcaneal enthesophytes. Ordered By: JACINTO VEGA Interpreted By: Luis Burger Jr, MD, 01/30/2022 8:40 AM Narrative 01/30/2022 8:42 AM CDT Date: 01/29/2022 3:02 PM Exam: XR ANKLE RT M3V Comparison: Right ankle radiography dated 01/15/2022. Technique: 3 views of the right ankle. History: Follow-up injury in December 2021. Findings: The lateral malleolar fracture is less conspicuous likely due to some degree of healing. The talar dome is normal without osteochondral lesion. The hindfoot appears intact. There are sizable calcaneal enthesophytes. There is moderate arthritis in the posterior subtalar joint. There is moderate mid foot arthritis. There is densely calcified arterial disease. There is diffuse soft tissue swelling. Procedure Note Luis Burger MD - 01/30/2022 Date: 01/29/2022 3:02 PM Exam: XR ANKLE RT M3V Comparison: Right ankle radiography dated 01/15/2022. Technique: 3 views of the right ankle. History: Follow-up injury in December 2021. Findings: The lateral malleolar fracture is less conspicuous likely due tosome degree of healing. The talar dome is normal without osteochondrallesion. The hindfoot appears intact. There are sizable calcanealenthesophytes. There is moderate arthritis in the posterior subtalarjoint. There is moderate mid foot arthritis. There is densely calcifiedarterial disease. There is diffuse soft tissue swelling. Impression: 1. The lateral malleolar fracture is somewhat less conspicuous likely dueto some degree of healing. 2. Persistent soft tissue swelling. 3. Moderate hindfoot and midfoot arthritis. Sizable calcanealenthesophytes. Ordered By: JACINTO VEGA Interpreted By: Luis Burger Jr, MD, 01/30/2022 8:40 AM Jacinto Vega MD GENERAL IMAGING Final Result documented in this encounter Visit Diagnoses Diagnosis Other closed fracture of distal end of right fibula, initial encounter- Primary Other closed fracture of distal end of right fibula, initial encounter documented in this encounter Additional Health Concerns Assessment Noted Time PHQ-9 Depression Total Score: 0 12/02/19 22 1:18 PM CDT documented as of this encounter Care Teams Lithographic Proofer Relationship Specialty Start Date End Date Megan Infante MD [address] [place] [address] PCP - General FAMILY PRACTICE 04/06/16 Piyush Pandey MD [place] Drug Enforcement Agent CARDIOVASCULAR DISEASE 04/06/16 12/28/23 Sharmila Davis APRN, SHAFT REPAIRER-C [address] [facility] [address] [place] [address] NURSE PRACTITIONER 01/04/17 04/03/24 Linda Block MD [address] [facility] [address] [address] [place] Drug Enforcement Agent CLINICAL CARDIAC ELECTROPHYSIOLOGY 02/08/17 04/12/23 Jeff Grace MD [address] [facility] [address] [phone] Consulting Physician INTERNAL MEDICINE 02/20/19 3 Zaki Ortiz MD [address] [facility] [address] [phone] Consulting Physician PULMONARY DISEASE 07/12/19 documented as of this encounter
--- OUTSIDE RECORDS SUMMARY | 2024-09-03 19:12 | XMS_ITS | Encounter Summary ---
Author Organization [facility] Address [facility] [place] [address] [place] [address] Care Team Providers Care Rack Loader Name Role Phone Piyush Pandey MD Unavailable Unavailabl e Megan Infante MD Primary Care Provider [phone] Sharmila Davis APRN AGRONOMY LOCATION MANAGERMartyC Unavailable Linda Block MD Unavailable [phone] Jeff Grace MD Unavailable Zaki Ortiz MD Unavailable [phone] Reason for Visit * Reason Comments Home EKG (SCAN) ECG (SCAN) Encounter Details Date Type Department Care Team (Late st Contact Info) Description 01/31/[address] [place] [address] Scanned, Documents Home EKG (SCAN); ECG (SCAN) Social History Tobacco Use Types Packs/Day [...] documented as of this encounter Functional Status documented as of this encounter Mental Status * Question Answer Entry Date Author Status Because of a physical, mental, or emotional condition, do you have serious difficulty concentrating, remembering, or making decisions? No 02/01/2022 5:00 AM CDT Sona Lan RN A ctive documented in this encounter Plan of Treatment Upcoming Encounters Date Type Department Care Team (Late st Contact Info) Description 09/25/2024 2:00 PM CORRESPONDENCE REVIEW CLERK Appointment [facility] [address] [place] [address] Zayra Powell, HOSPITAL TRAY SERVICE WORKER [address] [place] [phone] 10/16/2024 3:30 PM CORRESPONDENCE REVIEW CLERK Office Visit [facility] [address] [place] [address] Brit Gonzáles MD [address] [place] [address] documented as of this encounter Procedures Procedure Name Priority Date/Time Associated Diagnosis Comments ECG GENERIC (SCAN ORDER) Routine 01/31/2022 12:00 AM CDT documented in this encounter Results * ECG (01/31/2022 12:00 AM CDT) 01/31/2022 us Documents Scanned SCANNING Final Result [facility] documented in this encounter Visit Diagnoses Not on filedocumented in this encounter Additional Health Concerns Assessment Noted Time PHQ-9 Depression Total Score: 0 12/02/19 22 1:18 PM CDT documented as of this encounter Care Teams Rack Loader Relationship Specialty Start Date End Date Megan Infante MD [address] [place] [address] PCP - General FAMILY PRACTICE 04/06/16 Piyush Pandey MD [place] Front End Ui Developer CARDIOVASCULAR DISEASE 04/06/16 12/28/23 Sharmila Davis APRN, AGRONOMY LOCATION MANAGER-C [address] [facility] [address] [place] [address] NURSE PRACTITIONER 01/04/17 04/03/24 Linda Block MD [address] [facility] [address] [address] [place] [employer] Ui Developer CLINICAL CARDIAC ELECTROPHYSIOLOGY 02/08/17 04/12/23 Jeff Grace MD [address] [facility] [address] [address] Consulting Physician INTERNAL MEDICINE 02/20/19 3 Zaki Ortiz MD [address] [facility] [address] [place] [address] Consulting Physician PULMONARY DISEASE 07/12/19 documented as of this encounter
--- OUTSIDE RECORDS SUMMARY | 2024-09-03 19:12 | XMS_ITS | Encounter Summary ---
Author Organization [facility] Address [facility] [place] [address] [place] [address] Care Team Providers Care Senior Qa Analyst Name Role Phone Amauri Pandey MD Unavailable Unavailabl e Megan Infante MD Primary Care Provider [phone] Sharmila Davis APRN, FLIGHT SUPERINTENDENT-C Unavailable [phone] Linda Block MD Unavailable [phone] Jeff Grace MD Unavailable Zaki Ortiz MD Unavailable [phone] Reason for Visit * Reason Comments Consult Shortness Of Breath Encounter Details Date Type Department Care Team ([facility] Contact Info) Description 12/15/2021 9:00 AM CDT Office Visit [facility] [address] [place] [address] Sharmila Davis APRN, FLIGHT SUPERINTENDENT-C [address] [facility] [address] [place] [address] Consult; Shortness Of Breath Social History Tobacco Use Types Packs/Day Years [...] Sign Reading Time Taken Comments Blood Pressure 110/80 12/15/2021 9:02 AM CDT Pulse 91 12/15/2021 9:02 AM CDT Temperature - - Respiratory Rate 18 12/15/2021 9:02 AM CDT Oxygen Saturation 83% 12/15/2021 9:02 AM CDT Inhaled Oxygen Concentration - - Weight 101.1 kg (222 lb 12.8 oz) 12/15/2021 9:02 AM CDT Height 167.6 cm (5' 6 ) 12/15/2021 9:02 AM CDT Body Mass Index 35.96 12/15/2021 9:02 AM CDT documented in this encounter Patient Instructions * Patient Instructions* Sharmila Davis APRN, NP-C - 12/15/2021 9:00 AM CDT 1. Increase your furosemide to 80 mg twice a day. 2. I will call and let you know when to have your labs drawn. 3. Echo and appointment with Dr. Pandey in [place] in March. documented in this encounter Progress Notes * Sharmila Davis APRN, NP-C - 12/15/2021 9:00 AM CDT FROM: Sharmila Davis APRN, NP-C, collaborating physician Amauri Pandey III, M.D. RE: Obie Sims : 1955 Reason for Visit: Consult and Shortness Of Breath History of Present Illness: Mr. Sims is a pleasant 66-year-old male seen in the cardiology clinic today in consultation requested by Dr. Infante for evaluation of shortness of breath and weight. He has a history of coronary artery disease, paroxysmal atrial fibrillation s/p PVI/WACA per Dr. Block on 10/24/15 and cardioversion in 03/2016, aortic stenosis s/p mechanical valve replacement in 1999 and bioprosthetic valve replacement 2013, LV dysfunction, mild carotid stenosis, hypertension, hyperlipidemia, type II diabetes, and COPD. He tells me that a few weeks ago, his diuretics were adjusted due to decreasing renal function. This includes decreasing his furosemide from 80 mg twice daily to 80 mg in the morning and 40 mg in theafternoon, and discontinuation of spironolactone. Since that time, he has had an increase in his shortness of breath upon exertion. He states that he cannot walk across the room without becoming dyspneic now. His weight has increased from 215 lbs to as high as 230 lbs. He wears oxygen for sleep, and sleeps sitting up in a chair due to orthopnea, which is not new. He has occasional paroxysmal nocturnal dyspnea. He denies any persistent anginal chest pain. His lower extremity edema has been relatively controlled, but he complains of tight itchy skin over his lower legs. He denies any claudication. He has occasional palpitations, but denies any lightheadedness or syncope. He denies signs and symptoms of CVA or TIA. He seems to be tolerating his present medications well without reported side effects. He denies signs of bleeding. Evaluation during the clinic visit included an EKG which confirmed the presence of atrial fibrillation at a rate of 91 beats per minute with an intraventricular conduction delay similar to his previous EKG. Recommendations/Plan: Mr. Sims appears to have an element of fluid overload since the adjustment in his diuretics. His last echocardiogram in March 2021 revealed an LVEF 55% with mild LVH, normal functioning bioprosthetic aortic valve replacement, and mild tricuspid regurgitation. His right and left heart catheterization in August 2020 revealed a 60% proximal LAD stenosis, mild disease of the circumflex, and 50% RCA stenosis, as well as severe pulmonary hypertension. Medical therapy and management with pulmonology was recommended at that time. A NEMO in September 2020 did not find evidence of a PFO. He is relatively stable upon exam in the office today, but he is questioning whether he can be admitted to the hospital. I explained that at this point, he appears stable enough to manage from an outpatient setting. If his symptoms worsen or if he becomes concerned, he may always proceed to the emergency department. I have recommended the following to Mr. Sims: 1. Dyspnea. I have instructed him to increase his furosemide back to 80 mg BID. We will call to obtain his most recent lab results, and then decide when I would like his follow-up BMP to be drawn. I have also provided him an order for a proBNP. His testing this past year, has been stable from a cardiac standpoint. If increasing his diuretics do not improve his symptoms, I recommend returning to pulmonology. Of note, he did have desaturation to a pulse oximeter of 83% with walking back to the clinic room. 2. CAD. He denies any persistent anginal chest pain. He will continue his aspirin, beta-kim, and statin. 3. Aortic Valve Replacement. His last echocardiogram demonstrated a well- functioning bioprosthetic aortic valve replacement. He will continue his low- dose aspirin. SBE antibiotic prophylaxis is recommended prior to any dental procedures. We will repeat an echocardiogram this summer. 4. Atrial Fibrillation. His heart rate is mildly elevated in the office today. He will continue carvedilol. He is anticoagulated with warfarin. 5. Hypertension. His blood pressure is well controlled in the office today. 6. Hyperlipidemia. He is currently treated with atorvastatin and reports no apparent side effects. An LDL cholesterol of less than 70 is recommended. We will plan to see Mr. Sims in four months with an echocardiogram prior to his visit. I have encouraged him to contact me in the meantime should he have any questions or problems. Medications: Current Outpatient Medications: ??? albuterol sulfate HFA (PROAIR HFA) 108 (90 BASE) MCG/ACT inhaler, Inhale 1 puff into the lungs every 6 (six) hours as needed. , Disp: , Rfl: ??? allopurinol 300 MG tablet, Take 300 mg by mouth daily. , Disp: , Rfl: ??? amlodipine 2.5 MG tablet, Take 1 tablet (2.5 mg total) by mouth daily., Disp: 30 tablet, Rfl: 1 ??? aspirin (ASPIRIN CHILDRENS) 81 MG chewable tablet, Chew 81 mg by mouth daily. , Disp: , Rfl: ??? atorvastatin 80 MG tablet, Take 80 mg by mouth nightly at bedtime. , Disp: , Rfl: ??? clonazePAM 1 MG tablet, Take 1 mg by mouth nightly as needed. , Disp: , Rfl: ??? docusate sodium 100 MG capsule, Take 100 mg by mouth as needed for Constipation., Disp: , Rfl: ??? Ixlfwmlubsc-Gwmxuvacx-Yuteyk 100-62.5-25 MCG/INH AEROSOL POWDER, BREATH ACTIVATED, Inhale [...] or crush tablet, Disp: , Rfl: ??? hydrocodone-acetaminophen 7.5-325 MG tablet, Take 1 [...] times a day., Disp: , Rfl: ??? NYSTOP powder, , [...] bedtime, Disp: , Rfl: 3 ??? warfarin 1 MG tablet, As directed, Disp: , Rfl: ??? warfarin 10 MG tablet, As directed, Disp: , Rfl: ??? carvedilol 6.25 MG tablet, Take 12.5 mg by mouth 2 (two) times a day., Disp: , Rfl: ??? COMPRESSION STOCKINGS, 20-30 MMHg Compression Stocking Knee High open or closed toe Dx I83.893,Disp: 1 Container, Rfl: 6 ??? nystatin cream, Apply topically as needed. , Disp: , Rfl: No Known Allergies Past [...] performed by Kilo Navarro MD at [facility] OR ??? HIP ARTHROPLASTY Left ??? KNEE ARTHROPLASTY Bilateral ??? REPAIR ROTATOR CUFF W/ OR W/O ACROMIOPLASTY Left ??? USE NEMO+CARDIOVERSION 03/24/2016 ??? XA A-FIB ABLATION 10/23/2015 PVI/WACA Social History Tobacco Use ??? Smoking status: Former Smoker Quit date: 1980 Years since quittin.3 ??? Smokeless tobacco: Former User Types: Chew Substance Use Topics ??? Alcohol use: Yes Comment: 6 beers per week ??? Drug use: No No family history on file. Family Status Relation Name Status ??? Brother Alive ??? Sister Alive ??? Mother ??? Father ??? PGF ??? MGF ??? MGM ??? PGM Review of Systems Constitutional: Positive for weight gain. Negative for recent unintentional weight loss and new or significant fatigue. HENT: Negative for new or significant hearing loss. Eyes: Negative for blurred vision and double vision. Respiratory: Positive for shortness of breath. Negative for cough and snoring. Cardiovascular: See HPI. Positive for orthopnea and PND. Gastrointestinal: Negative for blood in stool and melena. Genitourinary: Negative for dysuria. Musculoskeletal: Negative for myalgias and new or worsening joint stiffness/pain. Skin: Negative for rash. Neurological: Negative for tingling/numbness and focal weakness. Endo/Heme/Allergies: Negative for new or significant bruising/bleeding and polydipsia. Psychiatric/Behavioral: Negative for depression and new or significant memory loss. Vitals: 12/15/21 0902 BP: 110/80 Patient Position: Sitting BP Location: Right arm Pulse: 91 Weight: 101.1 kg (222 lb 12.8 oz) Height: 5' 6 (1.676 m) Body mass index is 35.96 kg/m??. Cardiac Exam Rate/Rhythm: Normal rate. An irregularly irregular rhythm present. PMI: Pulses: Normal pulses. Dorsalis pedis pulses are 2+ on the right side and 2+ on the left side. Posterior tibial pulses are 2+ on the right side and 2+ on the left side. Heart Sounds: Normal S1 sounds. Normal S2 sounds. No gallop present. No S3. No S4. Murmurs: Murmur present Systolic murmur is present with a grade of 1/6. Edema left: 1+. Edema Right: 1+. Physical Exam Constitutional: No distress. Healthy Appearance. HENT: Mask. Eyes: Pupils equal, round, and reactive to light. Conjunctivae normal. Neck: Neck supple. No JVD. Abdomen: Abdomen soft. Bowel sounds normal. No distension. No tenderness. Abdominal aorta not palpably enlarged. No abdominal bruit present. Pulmonary: Effort normal. Breath sounds normal. Skin: Dry. Warm. No rash. No jaundice. No cyanosis. No clubbing. No xanthoma. Musculoskeletal: No kyphosis. Normal ROM. Neurological: Alert. Oriented x 3. Comments: Diagnoses/Impression: 1. Shortness of breath BASIC METABOLIC PANEL PRO-BRAIN NATRIURETIC PEPTIDE 2. Coronary artery disease involving council coronary artery of council heart without angina pectorisELECTROCARDIOGRAM (NON MIDMARK ACQUIRED) 3. S/P aortic valve replacement with bioprosthetic valve USE ECHOCARDIOGRAM 4. Chronic atrial fibrillation (CMS/HCC) 5. Essential (primary) hypertension 6. Hyperlipidemia, unspecified hyperlipidemia type Referring Provider: No ref. provider found PCP: MEGAN INFANTE MD documented in this encounter Plan of Treatment Upcoming Encounters Date Type Department Care Team (Late st Contact Info) Description 09/25/2024 2:00 PM INDOOR LANDSCAPE ARCHITECT Appointment [facility] [address] [place] [address] Zayra Powell FNP [address] [place] [address] 10/16/2024 3:30 PM INDOOR LANDSCAPE ARCHITECT Office Visit [facility] [address] [place] [phone] Brit Gonzáles MD [address] [place] [address] documented as of this encounter Procedures Procedure Name Priority Date/Time Associated Diagnosis Comments ELECTROCARDIOGRAM (NON MIDMARK ACQUIRED) Routine 12/15/2021 9:06 AM CDT Coronary artery disease involving council coronary artery of council heart without angina pectoris documented in this encounter Results * PRO-BRAIN NATRIURETIC PEPTIDE (12/19/2021) B TYPE NATRIURETIC PEPTIDE 1,617 12/19/2021 Sharmila Davis APRN, FLIGHT SUPERINTENDENT-C LABORATORY Final Result * (ABNORMAL) BASIC METABOLIC PANEL (12/19/2021) SODIUM S/P/B 139 POTASSIUM S/P/B 4.5 CO2 30 CHLORIDE S/P/B 100 GLUCOSE 206 mg/dL CALCIUM S/P/B 9.1 BUN 30 CREATININE S/P/B 1.82(A) 0.7 - 1.3 EGFR NON-AFR. AMER. 37 <=90 12/19/2021 Sharmila Davis APRN, FLIGHT SUPERINTENDENT-C LABORATORY Final Result * ELECTROCARDIOGRAM (NON MIDMARK ACQUIRED) (12/15/2021 9:06 AM CDT) 12/15/2021 9:06 AM CDT Narrative [facility] - 12/16/2021 8:48 AM CDT ? [facility] ?[address], [place] ??[address] ? Test Date: ?2021-12-15 Pat Name: ? OBIE SIMS ?Department: ?? 105 ? Room: ? Gender: ? Male ? Chief Fundraising Officer: ?? : ?1955 ? Requested By: AMAURI PANDEY Order Number: [id number] ?Reading MD: ?? Amauri Pandey ? Measurements Intervals ?[place] ? Rate: ? 91 ? P: ? [place]: ? 0 ?QRS: ?-37 QRSD: ? 134 ?T: ?134 QT: ? 406 ? QTc: ?500 ? Interpretive Statements ATRIAL FIBRILLATION LEFT AXIS DEVIATION INTRAVENTRICULAR CONDUCTION DELAY Procedure Note Amauri Pandey MD - 12/16/2021 [facility] [address] [place] [address] Test Date: 2021-12-15 Pat Name: OBIE SIMS Department: 105 Room: Gender: Male Chief Fundraising Officer: : 1955 Requested By: AMAURI PANDEY Order Number: [id number] Reading MD: Amauri Pandey Measurements Intervals [place] Rate: 91 P: [place]: 0 QRS: -37 QRSD: 134 T: 134 QT: 406 QTc: 500 Interpretive Statements ATRIAL FIBRILLATION LEFT AXIS DEVIATION INTRAVENTRICULAR CONDUCTION DELAY Amauri Pandey MD PROCEDURES-ORDERABLE NO DEONTE RGE Final Result [facility] documented in this encounter Visit Diagnoses Diagnosis Shortness of breath Coronary artery disease involving council coronary artery of council heart without angina pectoris S/P aortic valve replacement with bioprosthetic valve Heart valve replaced by other means Chronic atrial fibrillation ([facility]) Atrial fibrillation Essential (primary) hypertension Unspecified essential hypertension Hyperlipidemia, unspecified hyperlipidemia type documented in this encounter Additional Health Concerns Assessment Noted Time PHQ-9 Depression Total Score: 0 12/02/19 22 1:18 PM CDT documented as of this encounter Care Teams Senior Qa Analyst Relationship Specialty Start Date End Date Megan Infante MD [address] [facility] [place] [phone] PCP - General FAMILY PRACTICE 04/06/16 Amauri Pandey MD [employer] CARDIOVASCULAR DISEASE 04/06/16 12/28/23 Sharmila Davis APRN, FLIGHT SUPERINTENDENT-C [address] [facility] [address] [place] [address] NURSE PRACTITIONER 01/04/17 04/03/24 Linda Block MD [address] [place] [phone] [employer] CLINICAL CARDIAC ELECTROPHYSIOLOGY 02/08/17 04/12/23 Jeff Grace MD [address] [place] [address] Consulting Physician INTERNAL MEDICINE 02/20/19 3 Zaki Ortiz MD [address] [place] [address] Consulting Physician PULMONARY DISEASE 07/12/19 documented as of this encounter
--- OUTSIDE RECORDS SUMMARY | 2024-09-03 19:12 | XMS_ITS | Encounter Summary ---
Author Organization [facility] Address [address] [place] [address]. [place] [address] [place] [address] Care Team Providers Care Agency Sales Director Name Role Phone Piyush Pandey MD Unavailable Unavailabl e Megan Infante MD Primary Care Provider [phone] Sharmila Davis APRN SAFETY EQUIPMENT TESTING SPECIALIST-C Unavailable [phone] Linda Block MD Unavailable [phone] Jeff Grace MD Unavailable Zaki Ortiz MD Unavailable [phone] Encounter Details Date Type Department Care Team (Latest Contact Info) Description 01/27/2022 Travel Social History Tobacco Use Types Packs/Day [...] st Contact Info) Description 09/25/2024 2:00 PM LASER/ELECTRO OPTICS TECHNICIAN Appointment [facility] [address] [place], [place] [phone] Zayra Powell, SURGICAL INSTRUMENT TECHNICIAN [address] [place] [address] 10/16/2024 3:30 PM LASER/ELECTRO OPTICS TECHNICIAN Office Visit [facility] [phone] [place] [phone] Brit Gonzáles MD [address] [place], [place] [phone] documented as of this encounter Visit Diagnoses Not on filedocumented in this encounter Additional Health Concerns Assessment Noted Time PHQ-9 Depression Total Score: 0 12/02/19 22 1:18 PM CDT documented as of this encounter Care Teams Agency Sales Director Relationship Specialty Start Date End Date Megan Infante MD [address] [facility] [place] [phone] PCP - General FAMILY PRACTICE 04/06/16 Piyush Pandey MD [place] [employer] Kiln Operator CARDIOVASCULAR DISEASE 04/06/16 12/28/23 Sharmila Davis, CITR[employer] FRUIT COLORER, SAFETY EQUIPMENT TESTING SPECIALIST-C [address] [facility] [address] [place] [phone] NURSE PRACTITIONER 01/04/17 04/03/24 Linda Block MD [address] [facility] [address] [place] [phone] [place] [employer]ary Kiln Operator CLINICAL CARDIAC ELECTROPHYSIOLOGY 02/08/17 04/12/23 Jeff Grace MD [address] [facility] [address] [phone] Consulting Physician INTERNAL MEDICINE 02/20/19 3 Zaki Ortiz MD [address] [place] [address] Consulting Physician PULMONARY DISEASE 07/12/19 documented as of this encounter
--- OUTSIDE RECORDS SUMMARY | 2024-09-03 19:12 | XMS_ITS | Encounter Summary ---
Author Organization [facility] Address [facility] [place] [address] [place] [address] Care Team Providers Care Node Js Developer Name Role Phone Piyush Pandey MD Unavailable Unavailabl e Megan Infante MD Primary Care Provider [phone] Barney Chase APRN, MANAGER CULINARY-C Unavailable [phone] Linda Block MD Unavailable [phone] Jeff Grace MD Unavailable Zaki Ortiz MD Unavailable [phone] Reason for Referral * Procedure (Routine) - Closed Specialty Diagnoses / Procedures Referred By Contac t Referred To Contact Diagnoses Elevated troponin NSTEMI (non-ST elevated myocardial infarction) ([facility]) Procedures Stress Test only, exercise [facility] [address] [place] [address] Phone: tel: Referral ID Status Reason Start Date Expiration Date Visits Re quested Visits Authorized [id number] Closed 02/02/2022 03/04/2023 1 1 * Imaging (Urgent) - Closed Specialty Diagnoses / Procedures Referred By Contac t Referred To Contact RADIOLOGY Procedures NM PHARM NUC STRESS TEST 1DAY NM PHARM NUC STRESS TEST 1DAY Barney Chase APRN, MANAGER CULINARY-C [address] [facility] [address] [place] [address] Phone: tel: fax: Referral ID Status Reason Start Date Expiration Date Visits Re quested Visits Authorized [id number] Closed 02/01/2022 03/03/2023 1 1 * Imaging (Urgent) - Closed Specialty Diagnoses / Procedures Referred By Contac t Referred To Contact RADIOLOGY Procedures USE ECHOCARDIOGRAM W CON USE ECHOCARDIOGRAM USE ECHOCARDIOGRAM Segundo Montana MD Phone: tel: fax: Referral ID Status Reason Start Date Expiration Date Visits Re quested Visits Authorized [id number] Closed 02/01/2022 03/03/2023 1 1 * (Routine) - Canceled Specialty Diagnoses / Procedures Referred By Yung t Referred To Contact Procedures OT Eval and Treat Segundo Montana MD Phone: tel: fax: Referral ID Status Reason Start Date Expiration Date V isits Requested Visits Authorized [id number] Canceled 02/01/2022 03/03/2023 1 1 * (Routine) - Canceled Specialty Diagnoses / Procedures Referred By Yung t Referred To Contact Procedures PT Eval and Treat Segundo Montana MD Phone: tel: fax: Referral ID Status Reason Start Date Expiration Date V isits Requested Visits Authorized [id number] Canceled 02/01/2022 03/03/2023 1 1 Reason for Visit * Auth/Cert Specialty Diagnoses / Procedures Referred By Yung t Referred To Contact Diagnoses NSTEMI (non-ST elevated myocardial infarction) ([facility]) NSTEMI Procedures NONE Referral ID Status Reason Start Date Expiration Date Visits Re quested Visits Authorized [id number] 1 1 Encounter Details Date Type Department Care Team (Latest Contact Info) Description 02/01/2022 5:11 AM CDT - 02/06/2022 1:57 PM CDT Hospital Encounter [facility] [address] [place] [address] Segundo Montana MD [address] [place] [address] Saroj Rodriges MD [address] [place] [address] Kate Boston MD [address] [place], [place] [address] Discharge Disposition: Jail Facility Social History Tobacco Use Types Packs/Day [...] Sign Reading Time Taken Comments Blood Pressure 151/92 02/06/2022 8:01 AM CDT Pulse 70 02/06/2022 8:01 AM CDT Temperature 36.9 ??C (98.4 ??F) 02/06/2022 8:01 AM CD T Respiratory Rate 18 02/06/2022 8:01 AM CDT Oxygen Saturation 97% 02/06/2022 8:01 AM CDT Inhaled Oxygen Concentration - - Weight 92.4 kg (203 lb 11.3 oz) 02/06/2022 5:00 AM CDT Height 167.6 cm (5' 6 ) 02/02/2022 1:00 PM CDT Body Mass Index 32.88 02/02/2022 1:00 PM CDT documented in this encounter Functional Status * Question Answer Date of Assessment Author Status Do you have serious difficulty walking or climbing stairs? Yes 02/01/2022 5:00 AM CDT Sona Lan RN Activ e * Question Answer Date [...] AM CDT Sona Lan RN A ctive * Because of a physical, mental, or emotional condition, do you have serious difficulty concentrating, remembering, or making decisions? Answer Entry Date Author Status No 02/01/2022 5:00 AM Sona Deleon RN Active documented in this encounter Discharge Summaries * Kate Boston MD - 02/06/2022 12:47 PM CDT Images from the original note were not included. [facility] Hospitalist Discharge Summary Patient ID: Obie Sims [id number] 66-year-old 1955 Admit date: 02/01/2022 Discharge date: 02/06/2022 Primary Care physician: MEGAN INFANTE MD Admitting Physician: Segundo Montana MD Discharge Physician: KATE BOSTON MD Consulting Physician: D[facility] Cardiology Reason for Admission: Weakness, fall, chest pain and SOB Discharge Diagnoses: NSTEMI demand ischemia CHF exacerbation CAP Discharged Condition: good Discharge Meds: Medication List START taking these medications Morning Afternoon Evening Bedtime As Needed doxycycline hyclate 100 MG tablet Commonly known as: VIBRA-TABS Take 1 tablet (100 mg total) by mouth every 12 (twelve) hours for 3 days. Last time this was given: 100 mg on February 06, 2022 9:00 AM CHANGE how you take these medications Morning Afternoon Evening Bedtime As Needed enoxaparin 100 mg/mL syringe Commonly known as: LOVENOX Inject 1 mL (100 mg total) into the skin every 12 (twelve) hours for 7 days. Last time this was given: 100 mg on February 06, 2022 6:01 AM What changed: ?? medication strength ?? how much to take ?? how to take this ?? when to take this furosemide 40 MG tablet Commonly known as: LASIX Take 1 tablet (40 mg total) by mouth daily for 30 days. Last time this was given: Ask your nurse or doctor What changed: ?? how much to take ?? when to take this nystatin cream Commonly known as: MYCOSTATIN Apply topically as needed. What changed: Another medication with the same name was removed. Continue taking this medication, and follow the directions you see here. traZODone 100 MG tablet Commonly known as: DESYREL Take 1 tablet (100 mg total) by mouth nightly as needed for Sleep. Last time this was given: 200 mg on February 01, 2022 9:02 PM What changed: ?? how much to take ?? when to take this ?? reasons to take this ?? additional instructions warfarin 10 MG tablet Commonly known as: COUMADIN Take 5 mg by mouth in the morning. As directed Last time this was given: 5.5 mg on February 05, 2022 5:00 PM What changed: Another medication with the same name was removed. Continue taking this medication, and follow the directions you see here. CONTINUE taking these medications Morning Afternoon Evening Bedtime As Needed albuterol sulfate HFA 108 (90 Base) MCG/ACT inhaler Inhale 1 puff into the lungs every 6 (six) hours as needed. allopurinol 300 MG tablet Commonly known as: ZYLOPRIM Take 300 mg by mouth daily. Last time this was given: 300 mg on February 06, 2022 8:59 AM amLODIPine 2.5 MG tablet Commonly known as: NORVASC Take 1 tablet (2.5 mg total) by mouth daily. Last time this was given: 2.5 mg on February 06, 2022 9:00 AM aspirin 81 MG chewable tablet Chew 81 mg by mouth daily. Last time this was given: Ask your nurse or doctor atorvastatin 80 MG tablet Commonly known as: LIPITOR Take 80 mg by mouth nightly at bedtime. Last time this was given: 80 mg on February 06, 2022 9:00 AM carvedilol 6.25 MG tablet Commonly known as: COREG Take 12.5 mg by mouth 2 (two) times a day. Last time this was given: 6.25 mg on February 06, 2022 8:59 AM clonazePAM 1 MG tablet Commonly known as: klonoPIN Take 1 tablet (1 mg total) by mouth nightly as needed. Last time this was given: 1 mg on February 01, 2022 9:03 PM docusate sodium 100 MG capsule Commonly known as: COLACE Take 100 mg by mouth as needed for Constipation. mhxegrnbllu-upzslrwnhvdf-naycpxlsdr 100-62.5-25 MCG/INH Aepb Inhale into the lungs daily. folic acid 1 MG tablet Commonly known as: FOLVITE Take 1 mg by mouth daily. gabapentin 100 MG capsule Commonly known as: NEURONTIN 2 tablets in the morning, 4 tablets in the afternoon, and 6 tablets at bedtime Last time this was given: 200 mg on February 06, 2022 6:01 AM glipiZIDE XL 5 MG 24 hr tablet Commonly known as: GLUCOTROL XL Take 5 mg by mouth daily with breakfast. Do not break or crush tablet HYDROcodone-acetaminophen 5-325 MG tablet Commonly known as: NORCO Take 1 tablet by mouth every 6 (six) hours as needed. Indications: Acute Pain < 7 Day Supply Last time this was given: 1 tablet on February 06, 2022 9:00 AM losartan 50 MG tablet Commonly known as: COZAAR Take 50 mg by mouth daily. Melatonin 10 MG Caps Take 10 mg by mouth nightly as needed. metFORMIN 500 MG tablet Commonly known as: GLUCOPHAGE Take 500 mg by mouth 2 (two) times daily with meals. pantoprazole EC 40 MG tablet Commonly known as: PROTONIX Take 40 mg by mouth daily. Last time this was given: 40 mg on February 06, 2022 9:00 AM rOPINIRole 2 MG tablet Commonly known as: REQUIP Take 4 mg by mouth nightly. Last time this was given: 4 mg on February 05, 2022 8:21 PM sertraline 50 MG tablet Commonly known as: ZOLOFT Take 50 mg by mouth daily. Last time this was given: 50 mg on February 06, 2022 8:59 AM STOP taking these medications hydrOXYzine 50 MG tablet Commonly known as: ATARAX metoclopramide 10 MG tablet Commonly known as: REGLAN metOLazone 2.5 MG tablet Commonly known as: ZAROXOLYN potassium chloride CR 20 MEQ tablet Commonly known as: CAMILA-MARIA C Kiran HPI and Hospital Course: Obie Sims is a 66-year-old male history of CAD, COPD, aortic stenosis s/p??MVR in 2000 and Bioprosthetic in 2014, Type 2 DM, A-fib on warfarin, Chronic HFpEF,??severe pulm hypertension, hypertension, hyperlipidemia,??CKD3(baseline creatinine??1.6-??1.8), CVA (lacunar infarct in nicholas & L. 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 ??Admittedfor NSTEMI and fall: ?? Fall Lactic Acidosis CAP --??Cx NGTD. CXR concerning for CAP -- Cough, SOB and sputum resolved. Patient doing much better. Was on Ceftriaxone and Doxycycline for 5 days. 3 more days of PO Doxycycline at [facility]. NSTEMI CAD?? --LHC in Aug 2020 w/??proximal LAD 60% stenosis, and ostial RCA 50% stenosis. ??Manage medically. Cardiology following and agrees with the plan. --Continue therapeutic Lovenox??while INR remains subtherapeutic. --Continue aspirin, Coreg, and atorvastatin. ?? Chronic HFpEF Aortic stenosis s/p??MVR in 1999 &??bioprosthetic valve (2013) Severe pulm hypertension Hypertension Hyperlipidemia -- Diuresed aggressively and now back to baseline. -- SOB resolved. Continue medical management. ?? Atrial Fibrillation: cont Coreg. Continue therapeutic Lovenox - Resume home Warfarin dosing. Recommend follow up INR and defer further dosing and management per physician at the SNF. ?? CKD 3:??Baseline. Recommend follow up per PCP. ?? Diabetes: Resume home anti-hyperglycemic regimen at [facility]. Significant Diagnostic Studies: Lab Results Component Value Date CHOL 151 02/01/2022 TRI 119 02/01/2022 HDL 73 02/01/2022 LDL 54 02/01/2022 NA 136 02/04/2022 K 3.8 02/04/2022 CL 99 02/04/2022 CO2 31.3 02/04/2022 BUN 30 (H) 02/04/2022 CR 1.28 02/04/2022 CA 9.1 02/04/2022 GLU 187 (H) 02/04/2022 AGAP 5.7 02/04/2022 TP 7.2 02/04/2022 ALB 3.2 (L) 02/04/2022 AST 34 02/04/2022 ALT 38 02/04/2022 WBC 9.6 02/04/2022 HGB 10.1 (L) 02/04/2022 PLT 143 (L) 02/04/2022 HGBA1C 7.9 (H) 02/01/2022 TSH 2.10 09/28/2013 INR Date Value Ref Range Status 02/06/2022 1.1 0.8 - 1.1 Final XR CHEST PORTABLE Result Date: 02/01/2022 Examination: Chest Radiograph, 1 view Exam Date/Time: 02/01/2022 6:12 AM Reason For Exam: sepsis Pulmonary hypertension, bilateral carotid disease, sepsis Comparison: 05/14/2016 chest radiograph Technique: Single AP view of the chest. Findings: Prominent cardiac silhouette. Poststernotomy changes. Atherosclerotic aorta. Moderate pulmonary vascular congestion. No large effusion. No pneumothorax. No consolidations. Central infiltrates. ======== IMPRESSION: ======== 1. Cardiomegaly with pulmonary vascular congestion and central infiltrates suspicious for early edema Referred By: ARISTEO DUVALL Interpreted By: Nico Mann MD, 02/01/2022 6:46 AM NM PHARM NUC STRESS TEST 1DAY Result Date: 02/02/2022 MYOCARDIAL PERFUSION SCAN Pat.Name: OBIE SIMS Pat.ID: [id number] St.Date: 02/02/2022 Refer.MD: ARMAND COSBY Exam Time: 7:15:00 AM Study Type:NC Ht Muscle Image SPECT Multi Nuclear Height: 66in Weight: 214.5lb BSA: 2.06 m2 Age: 12 1955,66Y Sex: MALE Sonogrphr: PARIS Fox Pat. Stat.:Inpatient Room: [facility] Reason for Study:Chest pain/ anginal equivalent, ECGs or troponins abnormal Procedures: Regadenoson Stress, Stress Gated SPECT, Rest SPECT, Patient unable to lay prone for imaging. Race: W Risk Factors:Anxiety, Artic valve stenosis, Arthritis, Asthma, mild persistent, Atrial fibrillation s/p PVI/WACA 10/2015, Carotid disease, CHF, COPD, CAD, DMII, Edema +2 pitting edema, Blood transfusion, HLD, HTN, LV dysfunction, Osteoarthritis, PAD, Pneumonia, Restless leg syndrome, S/Paortic valve replacement with bioprosthetic valve, SOB, Stroke, Varicose veins bilateral lower extremeties, Knee arthroplasty, Repair rotator cuff Medications:Albuteral HFA, Allopurinol, Amlodipine, Aspirin, Atorvastatin, Carvedilol, Clonazepam, Enoxaparin, Fluticasone, Folic acid, Furosemide, Gabap entin, Glipizide XL, Hydrocodone-acetaminophen, Losartan, Metformin, Metoclopramide, Metolazone, Pantoprazole, Potassium chloride CR, Ropinirole, Sertraline, Trazodone, Docusate sodium, Hydroxyzine, Melatonin, Warfarin ++++++++++++++++++++++++++++++++++++ SUMMARY: ++++++++++++++++++++++++++++++++++++ Mildly Abnormal Perfusion Study. There is evidence of a medium area of mild to moderate intensityfixed defect consistent with infarction or attenuation in the inferior and basal inferolateral knox. The heart size is normal. No abnormal wall motion observed. Left ventricular EF is 51 %. Nondiagnostic electrocardiographic portion of regadenoson stress test due to LBBB pattern. ++++++++++++++++++++++++++++++++++++ FINDINGS: ++++++++++++++++++++++++++++++++++++ Stress Findings: Nondiagnostic corinna ctrocardiographic portion of regadenoson stress test due to LBBB pattern. The patient had no complaints of chest pain. Impr: Mildly Abnormal Perfusion Study. There is evidence of a medium area of mild to moderate intensity fixed defect consistent with infarction or attenuation in the inferior and basal inferolateral knox. Hrt size: The heart size is normal. WM: No abnormal wall motion observed. Transient Ischemic Dilatation: The TID is 1.09. LV Perfusion Results: There is a moderate basal inferior perfusion defect during stress and rest.There is a mild basal inferolateral, mid inferior, apical inferior perfusion defect during stress which worsens with rest.There is a mild mid inferolateralperfusion defect during stress and rest. Gated SPECT Results: Left ventricular EF is 51 %. There ispost stress normal wall motion in all knox. Study Quality/Artifacts: The study quality is good. +++ +++++++++++++++++++++++++++++++++ STRESS: ++++++++++++++++++++++++++++++++++++ Baseline Vital Signs: Intervention Regadenoson Baseline ECG LBBB Peak Dose 0.4 mg Rest HR 79 Atropine Administered: 0 Rest BP 118/80 Duration 06:00 Baseline Rhythm Atrial fibrillation Stress Test Results: Pred. Max. Heart Rate (100%) [address]: 0 mm Symptoms and Complications: Arrhythmias Multifocal PVCs Reason for Stopping Test: Protocol completed Stress Induced Symptoms: Shortness of breath ECG Findings: The S-T segment changes of LBBB are present, therefore, S-T change with stress are of uncertain significance Signed 02/02/2022 04:34 PM Armand Cosby M.D. USE ECHOCARDIOGRAM W CON Result Date: 02/01/2022 Echocardiography Report Pat.Name: OBIE SIMS Pat.ID: [id number] St.Date: 02/01/2022 Refer.MD: [id number] JADIEL ALBERTS NABIH EWDPROV EWDPROV Exam Time: 2:01:00 PM Study Type:ECHO W/CONTRAST COMPLETE Height: 66.14in Weight: 215.6lb BSA: 2.07 m2 Age: 12 1955,66Y Sex: MALE BP: 124/81 Sonogrphr: Keegan Carlin [facility] Pat. Stat.:Inpatient Room: [facility] CPT - 4: C8929 Reason for Study:NSTEMI History/ Clinical:Shortness of breath, dyspnea Procedures: 2D, M- mode, Doppler, Color Flow, Definity was used to enhance endocardial definition., Portable Race: W ++++++++++++++++++++++++++++++++++++ SUMMARY: ++++++++++++++++++++++++++++++++++++ The left ventricular size is normal. The left ventricular systolic function is normal. The calculated ejection fraction is 54%. Wall motion appears normal in all segments. Right ventricular systolic function is depressed. Right ventricular systolic pressure is34+RAP mmHg. The peak velocity across the aortic biobrosthetic valve measures 2.88m/sec with a peakgradient of 33mmHg and a mean gradient of 21mmHg. The calculated aortic valve area is 1.14cm2. ++++++++++++++++++++++++++++++++++++ FINDINGS: ++++++++++++++++++++++++++++++++++++ LV: The left ventricular size is normal. The left ventricular systolic function is normal. The calculated ejection fracti on is 54%. Mild asymmetrical left ventricular hypertrophy. The septal E/e' is elevated at >15. The lateral E/e' is elevated at >11. Left ventricular diastolic function is abnormal. WM: Wall motion appears normal in all segments. LVOT: The left ventricular outflow tract size is normal. RV: Theright ventricular size is mildly enlarged. Right ventricular systolic function is depressed. Right v entricular systolic pressure is 34+RAP mmHg. TAPSE = 11.2mm (<16 mm indicates systolic RV dysfunction). LA: The left atrial volume is severely increased (>48 ml/M2). RA: Right atrial size is dilated. ANYA: No evidence of pericardial effusion. AO: Aortic root is not dilated. PA: Unable to reliably quantitate pulmonary systolic pressure. PVn: The pulmonary vein doppler wave form is blunted suggestive of elevated left atrial pressures. SVn: Inferior vena cava is not assessable. AV: The peak velocity across the aortic biobrosthetic valve measures 2.88m/sec with a peak gradient of 33mmHg and a mean gradient of 21mmHg. The calculated aortic valve area is 1.14cm2. No evidence of anya-prosthetic aortic valve regurgitation. No evidence of central prosthetic aortic valve regurgitation. Dimensionless index of 0.4. The aortic valve acceleration time is 91ms. The LVOT stroke volume index is27ml/m2. MV: Trace mitral regurgitation. Trivial degree of mitral valve stenosis. Heavily calcifiedanterior and posterior mitral annulus. Moderate thickening of mitral valve leaflets. The mean gradient across the mitral valve is 3mmHg at a heart rate of 79bpm. PV: The pulmonic valve is normal There is trace pulmonic regurgitation TV: Doppler assessment inadequate to accurately assess the degree of tricuspid regurgitation. No evidence of tricuspid valve stenosis. ++++++++++++++++++++++++++++++++++++ MEASUREMENTS: ++++++++++++++++++++++++++++++++++++ DOPPLER LVOT LVOTpkPG 4 mmHg LVOTmnPG 2 mmHg LVOTpkVel 102 cm/s (70-110)+ LVOT SV 58 ml LVOT TVI 18.6 cm LVOT CO 90 ml/s AV Forward Flow AV TVI51.2 cm AV pkPG 33 mmHg AV pkVel 288 cm/s (100- 170)+* Area (TVI) 1.14 cm2 (3-5)* AV mnVel 214 cm/s Area (Wilbert) 1.11 cm2 (3-5)* AV mnPG 21 mmHg MV Forward Flow MV DeTm 204 ms MV mnPG 3 mmHg MVA P1/2t 2.16 cm2 (4-6)* MV pkPG 7 mmHg MV P1/2t 102 ms (30-60)+* MV pkE 86.9 cm/s (60-130)+ TV Regurg Flow TVpkPG 34 mmHg TV pkVel 293 cm/s (30-70)+* Lat E' Lat e 7.28 cm/s Lat E/E' Lat E/e 11.9 Med E' Med e4.65 cm/s Med E/E' Med E/e 18.7 Aortic Valve Aortic Valve Ar 0.55 Aortic Valve Ve 0.35 AV DI Value0.4 EMILE (VTI) Index Value 0.55 AV Antegrade Flow AC 91 ms Acceleration Sl 3236 cm/s2 LV Mass 2D Value 203 g LV Mass Uxtgs2G Value 98.1 g/m2 Right Ventricle Right Ventricle 7.35 cm/s 2D Left VentricleLVIDd 4.18 cm (3.6-5.2) LV EF(Bi-Plane) 54 % (63-77)* LVIDs 2.96 cm (2.3-3.9) LVPW LVPWd 1.26 cm Ventricular Septum IVSd 1.37 cm Aorta Ao Asc 2.9 cm (zsc 1.2) LVOT LVOT 2 cm Ratios IVS LA Biplane LAVol I BP 50.7 ml/m2 MMODE TA Tricuspid Annul 1.12 cm Signed 02/01/2022 05:26 PM Armand Cosby M.D. Disposition: [facility] Patient Instructions: Activity: As tolerated Diet: low salt, carb controlled. MEGAN INFANTE MD Signed: KATE BOSTON MD 02/06/2022 12:54 PM Time spent in discharging patient ~ 35 mins documented in this encounter Discharge Instructions * Attachments The following attachments cannot be sent through Care Everywhere. * Doxycycline, ADULT (Mauritian) documented in this encounter Medications at Time [...] total) by mouth as needed for Constipation. doxycycline hyclate 100 MG tablet Take 1 tablet (100 mg total) by mouth every 12 (twelve) hours for 3 days. 6 tablet 02/06/2022 2 enoxaparin 100 mg/mL syringe Inject 1 mL (100 mg total) into the skin every 12 (twelve) hours for 7 days. 14 mL 02/06/2022 2 Fluticasone-Umecl idin-Vilant 100-62.5-25 MCG/INH AEROSOL POWDER, BREATH [...] 10/21/2021 3 documented as of this encounter Progress Notes * Radha Clayton, PharmD - 02/06/2022 12:48 PM CDT Warfarin - Pharmacy Dosing Service Note Obie Sims is a 66-year-old male for which pharmacy has been consulted to dose warfarin for A.fib. Goal INR is 2-3. Warfarin Order Set Activated: Yes Warfarin Start Date: continuation from home Past Medical History: Diagnosis Date ??? Abnormal [...] other complications ??? Weight gain with edema Home warfarin dose: 5.5mg daily (last dose 01/25/22) Bridging agent: enoxaparin Vitamin K use: No Diet: PO Recent Labs Lab 02/01/22 1127 02/03/22 0435 02/04/22 0453 02/04/22 1511 HGB 10.5* 10.4* 10.1* -- HCT 31.9* 32.0* 31.9* -- PLT 181 PLATELET CLUMPS PRESENT. ESTIMATE FROM SLIDE APPEARS TO BE WITHIN NORMAL RANGE 143* -- AST 89* -- -- 34 ALT 47 -- -- 38 ALKP 104 -- -- 108 ALB 3.5 -- -- 3.2* Date INR Dose Received 02/04 1.2 5.5 mg 02/05 1.1 5.5 mg 02/06 1.1 5.5 mg Drug interactions: Potential to increase INR: doxycycline, ceftriaxone Potential to decrease INR: n/a Potential to increase the risk of bleeding: aspirin, enoxaparin, sertraline Warfarin Sensitivity: moderate, based on the following risk factors: concomitant antiplatelet therapy and age 66-79. Hgb/Hct today are stable INR today is Subtherapeutic Treating patient as a new start since warfarin was held prior to admission (last dose 01/25). Majordrug interaction with doxycyline. Will monitor closely.The plan is to continue home regimen of 5.5 mg dose once tonight and recheck an INR in the morning to assist with subsequent dosing if patient still admitted .Pharmacy will continue to monitor labs and notes daily, adjusting the dose as clinically appropriate. Thank you for the consult. Pharmacy to dose per Dr. Kate CLAYTON, PharmD Phone number: [phone] 02/06/2022 12:48 PM * Ivett Harding RN - 02/06/2022 12:47 PM CDT Called report to Yvonne at [facility] ([phone]). All questions/concerns addressed. Faxed all discharge orders to [phone]. Waiting for patient's transportation at this time, will continue to monitor. * Geraldine Murphy RN - 02/06/2022 11:05 AM CDT Spoke with patient at bedside. Made him aware that [facility] has accepted him to their swing bed program. He states that he will call his family and someone will come get him and take him to the swing bed. Placement: [facility]ing [facility] RN/RN report: [phone] Fax orders to: [phone] Geraldine Murphy RN, CM Cardiac Buffer Nickel/Biochemistry Technician ext [phone] Email: [email or web address] * Jordyn JAKE Mcbride - 02/06/2022 8:44 AM CDT OT Treatment Discharge Recommendation: Swing bed unit Activity Recommendation for practice assistant: up with 1, gait belt, 2ww 02/06/22 0824 Therapy Visit Reason for admission Pt presented to the hospital after he tripped and fell at home. Head CT, facial bone CT, pelvis x-ray and L hand x-ray all (-) Admitted with possible NSTEMI .................. Therapy orders: Eval and Treat ..................... PMH: CAD, COPD, s/p AVR, DM2, afib, CHF, severe pulmonary HTN, CKD stage III, CVA, lipoma, HTN, HLD, recent ankley fracture Ordering Provider Dr. Montana Verified Two Patient Identifiers Yes Patient consents to therapy Yes Acute Inpatient OT Time Calculation OT Start Time 0824 OT Stop Time 0844 OT Time Calculation (min) 20 min Precautions General Precautions Fall Risk;Bed Alarm;Chair Alarm Instructed on Precautions Yes;Verbalizes understanding Other tele Home Living Home Living Comments Per Eval: Pt lives with his daughter and her family in a one story house with a basement. Pt has 2-3 YANG with handrail. Pt reports he lives in the basement and has a chair lift to the basement. Pt has a walk-in shower with seat and grab bars and standard toilet with riser with arms. Prior to admission pt was independent with all ADLs. Pt's daughter takes care of all IADLs. Ptwas ambulating with wh/walker in the house and cane when he would go out of the home. Subjective Subjective RN ok'd therapy session at this time and pt agreeable to participation. Pt seen in room 510 and gait belt used during transfers/mobility. Pain Pain Yes Pain Score 8 Location L side-did not elaborate Activity Tolerance Activity Tolerance Comments Pt activity tolerance improving. Cognition Overall Cognitive Status WFL Arousal/Alertness Appropriate responses to stimuli Attention Span Attends with cues to redirect Memory Appears intact Orientation Level Oriented X4 Following Commands Follows all commands and directions without difficulty Safety Judgment Good awareness of safety precautions Awareness of Errors Assistance required to identify errors made Deficits Decreased awareness of deficits Problem Solving Assistance required to identify errors made ADL Grooming Assistance Stand by;CGA;Standing at sink Grooming Deficit Wash/dry hands;Wash/dry face;Teeth care;Brushing hair LE Dressing Assistance Maximal LE Dressing Deficit Don/doff R sock;Don/doff L sock;Don/doff R shoe;Don/doff L shoe Toileting Assistance Stand by Toileting Comment Voided seated on toilet Functional Transfers Sit to Stand SBA/supervision;Contact guard assist Bed to Chair Contact guard assist Toilet Transfers Grab bars;Supervision Functional Mobility Pt performed functional mobility in room/restroom with use of 2ww. No overt LOBnoted with use of 2ww, but requires encouragement. Balance Sitting - Static Independent Sitting - Dynamic Independent Standing - Static SBA;Support of one upper extremity Standing - Dynamic SBA;CGA;Support of both upper extremities Other (Comment) No LOB noted during session OT Assessment OT Assessment Pt making slow progress toward OT goals at this time. Pt continues to be limited by weakness, fatigue, and deconditioning. Pt would continue to benefit from skilled OT in the acute setting and then SBU at d/c to improve transfers, mobility, activity tolerance, and ADL independnce to maximize performance. Recommendation OT Recommendation Swing bed unit Plan Progress Progressing toward goals OT Frequency 4 times/week OT - Next Appointment 02/06/22 If this is the last treatment note, it will serve as the discharge summary Yes End of Session End of Session Safety Chair alarm set/activated;Call light within reach;Nursing aware of session * Piyush Pandey MD - 02/06/2022 8:03 AM CDT Chart reviewed. ?? Elevated troponin level S/P AVR X2 Chronic HFpEF Atrial fibrillation -- S/P ablation, 2016. CAD Carotid artery disease PAD HTN COPD CVA Restless leg syndrome ?? Rhythm: Afib. BP 151/92??mmHg. Presently without cardiac complaints. INR 1.1 yesterday. Labs reviewed. Peak Troponin 247, Peak CPK 2118 Echo: LVEF 54%, RVEF reduced w/ PASP 34+RAP, bioprosthetic aortic valve with peak gradient of 33 mmHg (mean gradient 21 mmHg). RNST: no ischemia. LVEF 51%. ? Vitals reviewed. Physical Exam Constitutional:?Healthy Appearance.? Neck:??Neck supple.?No JVD. ?? Cardiac: Irregular rhythm. /6 CALLIE. No rub. Abdomen:??Abdomen soft.??Bowel sounds normal.?No distension.??No tenderness.??Abdominal aorta not palpably enlarged.? Pulmonary:??Effort normal.??Breath sounds normal.?Diminished lung sounds in bases, slightly shallow breathing. Skin:??Warm??and dry.?No rash.??Scattered ecchymosis and abrasions. Musculoskeletal:??No kyphosis. Normal ROM. Tardive dyskinesia. ?? Neurological:??Alert.??Oriented x 3.? Warfarin being reinstated for Afib. At discharge will arrange OP Cardiology follow up. ? I spent 20 minutes reviewing the chart, taking the history, examining the patient, and documenting in the chart. ? * Geraldine Murphy RN - 02/05/2022 5:04 PM CDT Spoke with admissions at [facility]. States that he looks like a good candidate. Will send them more updates in the morning. Geraldine Murphy RN, CM Cardiac Buffer Nickel/Biochemistry Technician ext [phone] Email: [email or web address] * Kate Boston MD - 02/05/2022 3:18 PM CDT Obie Sims is a 66-year-old male patient. SUBJECTIVE: Patient resting comfortably No acute events SNOMED CT(R) 1. Elevated troponin RAISED CARDIAC ENZYME OR MARKER 2. NSTEMI (non-ST elevated myocardial infarction) (CMS/HCC) MYOCARDIAL INFARCTION 3. Chest pain CHEST PAIN Past Medical History: Diagnosis Date ??? Abnormal [...] other complications ??? Weight gain with edema No Known Allergies Active Problems: NSTEMI (non-ST elevated myocardial infarction) (CMS/HCC) SNOMED CT(R): MYOCARDIAL INFARCTION Elevated troponin SNOMED CT(R): RAISED CARDIAC ENZYME OR MARKER Elevated brain natriuretic peptide (BNP) level SNOMED CT(R): HORMONE LEVEL - FINDING Fall SNOMED CT(R): FALL Blood pressure (!) 146/79, pulse 93, temperature 97.7 ??F (36.5 ??C), resp. rate 18, height 5' 6 (1.676 m), weight 100.1 kg (220 lb 10.9 oz), SpO2 99 %. Review of Systems Constitutional: Negative for chills, fever, malaise/fatigue and weight loss. HENT: Negative for ear pain, hearing loss and tinnitus. Eyes: Negative for blurred vision, double vision and photophobia. Respiratory: Negative for cough, hemoptysis and sputum production. Cardiovascular: Negative for chest pain, palpitations and orthopnea. Gastrointestinal: Negative for abdominal pain, heartburn, nausea and vomiting. Genitourinary: Negative for dysuria and urgency. Skin: Negative for itching and rash. Physical Exam Constitutional: General: He is not in acute distress. Appearance: He is normal weight. He is not toxic-appearing. HENT: Head: Normocephalic and atraumatic. Mouth/Throat: Mouth: Mucous membranes are moist. Cardiovascular: Rate and Rhythm: Normal rate and regular rhythm. Pulmonary: Effort: Pulmonary effort is normal. No respiratory distress. Breath sounds: No stridor. Rhonchi present. No wheezing or rales. Neurological: Mental Status: He is alert. Current Facility-Administered Medications: ??? acetaminophen (TYLENOL) tablet 650 mg, 650 mg, Oral, Q6H PRN, Segundo Montana MD ??? allopurinol (ZYLOPRIM) tablet 300 mg, 300 mg, Oral, Daily, Segundo Montana MD, 300 mg at 02/05/22805 ??? amLODIPine (NORVASC) tablet 2.5 mg, 2.5 mg, Oral, Daily, Segundo Montana MD, 2.5 mg at 808 ??? aspirin EC (ECOTRIN) tablet 81 mg, 81 mg, Oral, Daily, Segundo Montana MD, 81 mg at 02/05/22805 ??? atorvastatin (LIPITOR) tablet 80 mg, 80 mg, Oral, Daily, Segundo Montana MD, 80 mg at 02/05/22805 ??? carvedilol (COREG) tablet 6.25 mg, 6.25 mg, Oral, BID, Segundo Montana MD, 6.25 mg at 02/05/22 08 ??? cefTRIAXone (ROCEPHIN) 1 g in sodium chloride 0.9 % 50 mL IVPB, 1 g, Intravenous, Q24H, Kate Boston MD, Stopped at 02/05/22 1456 ??? clonazePAM (klonoPIN) tablet 1 mg, 1 mg, Oral, Nightly PRN, Kate Boston MD ??? doxycycline hyclate (VIBRA-TABS) tablet 100 mg, 100 mg, Oral, 2 times per day, Kate Boston MD, 100 mg at 02/05/22 0806 ??? enoxaparin (LOVENOX) 100 mg/mL syringe 100 mg, 1 mg/kg, Subcutaneous, Q12H, Saroj Rodriges MD, 100 mg at 02/05/22 0557 ??? furosemide (LASIX) injection 40 mg, 40 mg, Intravenous, Daily, Kate Boston MD, 40 mg at 02/05/22 0808 ??? gabapentin (NEURONTIN) capsule 200 mg, 200 mg, Oral, QAM, 200 mg at 02/05/22 0556 AND gabapentin (NEURONTIN) capsule 400 mg, 400 mg, Oral, after lunch, 400 mg at 02/05/22 1345 AND gabapentin (NEURONTIN) capsule 600 mg, 600 mg, Oral, Nightly at bedtime, Segundo Montana MD, 600 mg at 02/04/22 2013 ??? HYDROcodone-acetaminophen (NORCO) 5-325 MG tablet 1 tablet, 1 tablet, Oral, Q6H PRN, Segundo Montana MD, 1 tablet at 02/05/22 0811 ??? insulin lispro (HUMALOG) injection 0-6 Units, 0-6 Units, Subcutaneous, 4x Daily AC and at bedtime, Segundo Montana MD, 2 Units at 02/05/22 1204 ??? ipratropium-albuterol (COMBIVENT RESPIMAT) 20-100 MCG/ACT inhaler 1 puff, 1 puff, Inhalation, Q6H PRN, Segundo Montana MD ??? lidocaine 4 % patch 2 patch, 2 patch, Transdermal, Q24H, Kate Boston MD, 2 patch at 02/05/22 1345 ??? methocarbamol (ROBAXIN) tablet 500 mg, 500 mg, Oral, TID PRN, Saroj Rodriges MD, 500 mg at 02/02/22 1546 ??? ondansetron (ZOFRAN) injection 4 mg, 4 mg, Intravenous, Q8H PRN, Segundo Montana MD ??? pantoprazole EC (PROTONIX) tablet 40 mg, 40 mg, Oral, Daily, Segundo Montana MD, 40 mg at 02/05/22 0806 ??? rOPINIRole (REQUIP) tablet 4 mg, 4 mg, Oral, nightly, Segundo Montana MD, 4 mg at 02/04/222011 ??? Senna (SENOKOT) 8.6 MG tablet 8.6 mg, 8.6 mg, Oral, Daily PRN, Segundo Montana MD ??? sertraline (ZOLOFT) tablet 50 mg, 50 mg, Oral, Daily, Segundo Montana MD, 50 mg at 02/05/22 0806 ??? traZODone (DESYREL) tablet 100 mg, 100 mg, Oral, Nightly PRN, Kate Boston MD ??? Pharmacy to dose warfarin (COUMADIN), , , Once AND warfarin (COUMADIN) pharmacy to dose placeholder, , Oral, See Admin Instructions, Kate Boston MD ??? warfarin (COUMADIN) Split tab 5.5 mg, 5.5 mg, Oral, Once, Kate Boston MD CBC Lab Results Component Value Date/Time WBC 9.6 02/04/2022 04:53 AM Lab Results Component Value Date/Time RBC 3.59 (L) 02/04/2022 04:53 AM Lab Results Component Value Date/Time HGB 10.1 (L) 02/04/2022 04:53 AM Lab Results Component Value Date/Time HCT 31.9 (L) 02/04/2022 04:53 AM BMP Lab Results Component Value Date/Time CO2 31.3 02/04/2022 04:53 AM Lab Results Component Value Date/Time CA 9.1 02/04/2022 04:53 AM Lab Results Component Value Date/Time CL 99 02/04/2022 04:53 AM Lab Results Component Value Date/Time CR 1.28 02/04/2022 04:53 AM Lab Results Component Value Date/Time GLU 187 (H) 02/04/2022 04:53 AM Lab Results Component Value Date/Time NA 136 02/04/2022 04:53 AM Lab Results Component Value Date/Time K 3.8 02/04/2022 04:53 AM Lab Results Component Value Date/Time BUN 30 (H) 02/04/2022 04:53 AM Radiology Results (Last 30 days) 02/04/22 0546 XR CHEST PORTABLE Final result Impression: IMPRESSION: Stable cardiomegaly and mild pulmonary vascular congestion. Referred By: ARISTEO DUVALL Interpreted By: Regulo Campo MD, 02/04/2022 6:39 AM 02/02/22 1419 NM PHARM NUC STRESS TEST 1DAY Final result 02/01/22 1426 USE ECHOCARDIOGRAM W CON Final result 02/01/22 0614 XR CHEST PORTABLE Final result Impression: IMPRESSION: ======== 1. Cardiomegaly with pulmonary vascular congestion and central infiltrates suspicious for early edema Referred By: ARISTEO DUVALL Interpreted By: Nico Mann MD, 02/01/2022 6:46 AM 01/29/22 1502 XR ANKLE RT M3V Final result Impression: Impression: 1. The lateral malleolar fracture is somewhat less conspicuous likely due to some degree of healing. 2. Persistent soft tissue swelling. 3. Moderate hindfoot and midfoot arthritis. Sizable calcaneal enthesophytes. Ordered By: WHITLEY HAMILTON Interpreted By: Luis Burger Jr, MD, 01/30/2022 8:40 AM 01/15/22 1251 XR ANKLE RT M3V Final result Impression: IMPRESSION: Unchanged radiographic appearance of the minimally displaced distal fibular fracture. No significant healing changes noted. Ordered By: WHITLEY HAMILTON Interpreted By: Misael Diaz MD, 01/15/2022 3:09 PM ASSESSMENT AND PLAN: Obie Sims is a 66-year-old male history of CAD, COPD, aortic stenosis s/p MVR in 1999 and Bioprosthetic in 2013, Type 2 DM, A-fib on warfarin, Chronic HFpEF, severe pulm hypertension, hypertension,hyperlipidemia, CKD3(baseline creatinine 1.6- 1.8), CVA (lacunar infarct in nicholas & L. 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 Admitted for NSTEMI and fall: Fall Lactic Acidosis Leukocytosis -- Cx NGTD. CXR concerning for CAP -- C/O cough and sputum. Continue Ceftriaxone and Doxy and follow Cx. ?? NSTEMI CAD --LHC in Aug 2020 w/ proximal LAD 60% stenosis, and ostial RCA 50% stenosis. Manage medically. -- Given therapeutic Lovenox -- Cardiology following. -- Continue aspirin, Coreg, and atorvastatin. ?? Chronic HFpEF Aortic stenosis s/p MVR in 1999 & bioprosthetic valve (2013) Severe pulm hypertension Hypertension Hyperlipidemia -- Continue IV Lasix given congestion on CXR. Also C/O PND which is slightly better. -- Repeat CXR in AM. -- Continue amlodipine, and Coreg. will hold losartan ?? Atrial Fibrillation: cont Coreg. Continue therapeutic Lovenox - Pharmacy consulted for Warfarin dosing. ?? CKD 3: Baseline Cc 1.6-1.8. ?? Diabetes: Hold glipizide. SSI w/ accuchecks ACHS. ?? COPD: Cont home inhalers. ?? CODE STATUS: FULL DVT prophylaxis: Lovenox therapeutic KATE BOSTON MD 02/05/2022 * Yanni Presley, AaliyahD, [facility] - 02/05/2022 11:25 AM CDT Warfarin - Pharmacy Dosing Service Note Obie Sims is a 66-year-old male for which pharmacy has been consulted to dose warfarin for A.fib. Goal INR is 2-3. Warfarin Order Set Activated: Yes Warfarin Start Date: continuation from home Past Medical History: Diagnosis Date ??? Abnormal [...] other complications ??? Weight gain with edema Home warfarin dose: 5.5mg daily (last dose 01/25/22) Bridging agent: enoxaparin Vitamin K use: No Diet: PO Recent Labs Lab 02/01/22 1127 02/03/22 0435 02/04/22 0453 02/04/22 1511 HGB 10.5* 10.4* 10.1* -- HCT 31.9* 32.0* 31.9* -- PLT 181 PLATELET CLUMPS PRESENT. ESTIMATE FROM SLIDE APPEARS TO BE WITHIN NORMAL RANGE 143* -- AST 89* -- -- 34 ALT 47 -- -- 38 ALKP 104 -- -- 108 ALB 3.5 -- -- 3.2* Date INR Dose Received 02/04 1.2 5.5 mg 02/05 1.1 5.5 mg Drug interactions: Potential to increase INR: n/a Potential to decrease INR: n/a Potential to increase the risk of bleeding: aspirin, enoxaparin, sertraline, doxycycline Warfarin Sensitivity: moderate, based on the following risk factors: concomitant antiplatelet therapy and age 66-79. Hgb/Hct today are stable INR today is Subtherapeutic The plan is to continue home regimen of 5.5 mg dose once tonight and recheck an INR in the morning to assist with subsequent dosing. Pharmacy will continue to monitor labs and notes daily, adjusting the dose as clinically appropriate. Thank you for the consult. Pharmacy to dose per Dr. Kate Presley, PharmD, [facility] Phone number: [phone] 02/05/2022 11:25 AM Electronically signed by Yanni Presley PharmD, [facility] at 02/05/2022 11:26 AM CDT * Micaela Summers Ugarte, COLORED [employer] P[employer]IC APPLIER - 02/05/2022 9:00 AM CDT PT Treatment Discharge Recommendation: Swing bed unit DME equipment recommendation: Activity Recommendation for practice assistant: up with assist of 1 and use of the 2ww 02/05/22 0849 Therapy Visit Ordering Provider Dr. Nan Adams RN Ok'd therapy session. Patient was sitting up in the recliner and is motivated to workwith therapy Reason for admission Pt presented to the hospital after he tripped and fell at home. Head CT, facial bone CT, pelvis x-ray and L hand x-ray all (-) Admitted with possible NSTEMI .................. Therapy orders: Eval and Treat ..................... PMH: CAD, COPD, s/p AVR, DM2, afib, CHF, severe pulmonary HTN, CKD stage III, CVA, lipoma, HTN, HLD, recent ankley fracture Verified Two Patient Identifiers Yes Patient consents to therapy Yes Acute Inpatient PT Time Calculation PT Start Time 0849 PT Stop Time 0900 PT Time Calculation (min) 11 min Precautions General Precautions Fall Risk;Bed Alarm;Chair Alarm Instructed on Precautions Yes;Verbalizes understanding Other tele Pain Pain Yes Pain Score Did not rate Location left side under his armpit Interventions Re-direction;Re-positioning Activity Tolerance Activity Tolerance Comments Limited by acute pain and acute on chronic deconditioning but improved Cognition Overall Cognitive Status WFL Arousal/Alertness Appropriate responses to stimuli Attention Span Attends with cues to redirect Memory Appears intact Orientation Level Oriented X4 Following Commands Follows all commands and directions without difficulty Safety Judgment Good awareness of safety precautions Awareness of Errors Assistance required to identify errors made Deficits Decreased awareness of deficits Bed Mobility Other (Comment) not tested TRANSFERS Sit to Stand SBA/supervision Gait Gait Assistance SBA/supervision;Contact guard assist Assistive Device 2 Wheeled walker Distance Ambulated (ft) 125 ft Other (Comment) Patient ambulated with decreased speed, continuous step through gait pattern, and was mostly steady with use of the 2ww Balance Sitting - Static Independent Sitting - Dynamic Independent Standing - Static SBA;Support of both upper extremities Standing - Dynamic SBA;CGA;Support of both upper extremities Other (Comment) no loss of balance and was mainly steady with standing act and gait training Exercises Sitting LE Exercise Instructed patient to perform seated exercises throughout the day while he is sitting up - long arc quads, marching, hip abduction, and ankle pumps. He demonstrated each one Standing LE Exercise Patient performed BLE exercises x10-12 reps each in standing with use of the 2ww for balance - marching, calf raises, and mini squats. Recommendation PT Recommendation Swing bed unit Plan PT Treatments/Interventions Gait Training;Therapeutic Activities;Therapeutic Exercises;Neuromuscular re-education Progress Progressing toward goals PT Frequency 5 times/week PT - Next Appointment 02/05/22 If this is the last treatment note,it will serve as the discharge summary Yes End of Session End of Session Safety Chair alarm set/activated;Call light within reach;Nursing aware of session;Transfer status education End of Session Comment Patient was sitting up in the recliner with all needs within reach * Megan Hare PharmD - 02/04/2022 2:45 PM CDT Warfarin - Pharmacy Dosing Service Note Obie Sims is a 66-year-old male for which pharmacy has been consulted to dose warfarin for A.fib. Goal INR is 2-3. Warfarin Order Set Activated: Yes Warfarin Start Date: continuation from home Past Medical History: Diagnosis Date ??? Abnormal [...] other complications ??? Weight gain with edema Home warfarin dose: 5.5mg daily (last dose 01/25/22) Bridging agent: enoxaparin Vitamin K use: No Diet: PO Recent Labs Lab 02/01/22 1127 02/03/22 0435 02/04/22 0453 HGB 10.5* 10.4* 10.1* HCT 31.9* 32.0* 31.9* PLT 181 PLATELET CLUMPS PRESENT. ESTIMATE FROM SLIDE APPEARS TO BE WITHIN NORMAL RANGE 143* AST 89* -- -- ALT 47 -- -- ALKP 104 -- -- ALB 3.5 -- -- Date INR Dose Received 02/04 In process 5.5 mg Drug interactions: Potential to increase INR: n/a Potential to decrease INR: n/a Potential to increase the risk of bleeding: aspirin, enoxaparin, sertraline, doxycycline Warfarin Sensitivity: moderate, based on the following risk factors: concomitant antiplatelet therapy and age 66-79. Hgb/Hct today are stable INR today is Subtherapeutic The plan is to restart home regimen of 5.5 mg dose once tonight and recheck an INR in the morning to assist with subsequent dosing. Pharmacy will continue to monitor labs and notes daily, adjusting the dose as clinically appropriate. Thank you for the consult. Pharmacy to dose per Dr. Kate HARE, PharmD Phone number: [phone] 02/04/2022 2:45 PM * Kate Boston MD - 02/04/2022 2:17 PM CDT Obie Sims is a 66-year-old male patient. SUBJECTIVE: Patient resting comfortably No acute events SNOMED CT(R) 1. Elevated troponin RAISED CARDIAC ENZYME OR MARKER 2. NSTEMI (non-ST elevated myocardial infarction) (CMS/HCC) MYOCARDIAL INFARCTION 3. Chest pain CHEST PAIN Past Medical History: Diagnosis Date ??? Abnormal [...] other complications ??? Weight gain with edema No Known Allergies Active Problems: NSTEMI (non-ST elevated myocardial infarction) (CMS/HCC) SNOMED CT(R): MYOCARDIAL INFARCTION Elevated troponin SNOMED CT(R): RAISED CARDIAC ENZYME OR MARKER Elevated brain natriuretic peptide (BNP) level SNOMED CT(R): HORMONE LEVEL - FINDING Fall SNOMED CT(R): FALL Blood pressure (!) 158/70, pulse 76, temperature 97.5 ??F (36.4 ??C), temperature source Oral, resp. rate 18, height 5' 6 (1.676 m), weight 100.1 kg (220 lb 10.9 oz), SpO2 95 %. Review of Systems Constitutional: Negative for chills, fever, malaise/fatigue and weight loss. HENT: Negative for ear pain, hearing loss and tinnitus. Eyes: Negative for blurred vision, double vision and photophobia. Respiratory: Negative for cough, hemoptysis and sputum production. Cardiovascular: Negative for chest pain, palpitations and orthopnea. Gastrointestinal: Negative for abdominal pain, heartburn, nausea and vomiting. Genitourinary: Negative for dysuria and urgency. Skin: Negative for itching and rash. Physical Exam Constitutional: General: He is not in acute distress. Appearance: He is normal weight. He is not toxic-appearing. HENT: Head: Normocephalic and atraumatic. Mouth/Throat: Mouth: Mucous membranes are moist. Cardiovascular: Rate and Rhythm: Normal rate and regular rhythm. Pulmonary: Effort: Pulmonary effort is normal. No respiratory distress. Breath sounds: No stridor. Rhonchi present. No wheezing or rales. Neurological: Mental Status: He is alert. Current Facility-Administered Medications: ??? acetaminophen (TYLENOL) tablet 650 mg, 650 mg, Oral, Q6H PRN, Segundo Montana MD ??? allopurinol (ZYLOPRIM) tablet 300 mg, 300 mg, Oral, Daily, Segundo Montana MD, 300 mg at 02/04/22800 ??? amLODIPine (NORVASC) tablet 2.5 mg, 2.5 mg, Oral, Daily, Segundo Montana MD, 2.5 mg at ??? aspirin EC (ECOTRIN) tablet 81 mg, 81 mg, Oral, Daily, Segundo Montana MD, 81 mg at 02/04/22800 ??? atorvastatin (LIPITOR) tablet 80 mg, 80 mg, Oral, Daily, Segundo Montana MD, 80 mg at 02/04/22800 ??? carvedilol (COREG) tablet 6.25 mg, 6.25 mg, Oral, BID, Segundo Montana MD, 6.25 mg at 02/04/22 0801 ??? cefTRIAXone (ROCEPHIN) 1 g in sodium chloride 0.9 % 50 mL IVPB, 1 g, Intravenous, Q24H, Kate Boston MD, Last Rate: 100 mL/hr at 02/04/22 1350, 1 g at 02/04/22 1350 ??? clonazePAM (klonoPIN) tablet 1 mg, 1 mg, Oral, Nightly PRN, Segundo Montana MD, 1 mg at 02/01/22 2103 ??? doxycycline hyclate (VIBRA-TABS) tablet 100 mg, 100 mg, Oral, 2 times per day, Kate Boston MD, 100 mg at 02/04/22 0801 ??? enoxaparin (LOVENOX) 100 mg/mL syringe 100 mg, 1 mg/kg, Subcutaneous, Q12H, Saroj Rodriges MD, 100 mg at 02/04/22 0749 ??? furosemide (LASIX) injection 40 mg, 40 mg, Intravenous, Daily, Kate Boston MD, 40 mg at 02/04/22 0801 ??? gabapentin (NEURONTIN) capsule 200 mg, 200 mg, Oral, QAM, 200 mg at 02/04/22 0749 AND gabapentin (NEURONTIN) capsule 400 mg, 400 mg, Oral, after lunch, 400 mg at 02/04/22 1350 AND gabapentin (NEURONTIN) capsule 600 mg, 600 mg, Oral, Nightly at bedtime, Segundo Montana MD, 600 mg at 02/03/22 2017 ??? HYDROcodone-acetaminophen (NORCO) 5-325 MG tablet 1 tablet, 1 tablet, Oral, Q6H PRN, Segundo Montana MD, 1 tablet at 02/04/22 1204 ??? insulin lispro (HUMALOG) injection 0-6 Units, 0-6 Units, Subcutaneous, 4x Daily AC and at bedtime, Segundo Montana MD, 3 Units at 02/04/22 1137 ??? ipratropium-albuterol (COMBIVENT RESPIMAT) 20-100 MCG/ACT inhaler 1 puff, 1 puff, Inhalation, Q6H PRN, Segundo Montana MD ??? lidocaine 4 % patch 2 patch, 2 patch, Transdermal, Q24H, Kate Boston MD, 2 patch at 02/04/22 1205 ??? methocarbamol (ROBAXIN) tablet 500 mg, 500 mg, Oral, TID PRN, Saroj Rodriges MD, 500 mg at 02/02/22 1546 ??? ondansetron (ZOFRAN) injection 4 mg, 4 mg, Intravenous, Q8H PRN, Segundo Montana MD ??? pantoprazole EC (PROTONIX) tablet 40 mg, 40 mg, Oral, Daily, Segundo Montana MD, 40 mg at 02/04/22 0801 ??? rOPINIRole (REQUIP) tablet 4 mg, 4 mg, Oral, nightly, Segundo Montana MD, 4 mg at 02/03/22 2018 ??? Senna (SENOKOT) 8.6 MG tablet 8.6 mg, 8.6 mg, Oral, Daily PRN, Segundo Montana MD ??? sertraline (ZOLOFT) tablet 50 mg, 50 mg, Oral, Daily, Segundo Montana MD, 50 mg at 02/04/22 0801 ??? traZODone (DESYREL) tablet 100 mg, 100 mg, Oral, Nightly PRN, Kate Boston MD CBC Lab Results Component Value Date/Time WBC 9.6 02/04/2022 04:53 AM Lab Results Component Value Date/Time RBC 3.59 (L) 02/04/2022 04:53 AM Lab Results Component Value Date/Time HGB 10.1 (L) 02/04/2022 04:53 AM Lab Results Component Value Date/Time HCT 31.9 (L) 02/04/2022 04:53 AM BMP Lab Results Component Value Date/Time CO2 31.3 02/04/2022 04:53 AM Lab Results Component Value Date/Time CA 9.1 02/04/2022 04:53 AM Lab Results Component Value Date/Time CL 99 02/04/2022 04:53 AM Lab Results Component Value Date/Time CR 1.28 02/04/2022 04:53 AM Lab Results Component Value Date/Time GLU 187 (H) 02/04/2022 04:53 AM Lab Results Component Value Date/Time NA 136 02/04/2022 04:53 AM Lab Results Component Value Date/Time K 3.8 02/04/2022 04:53 AM Lab Results Component Value Date/Time BUN 30 (H) 02/04/2022 04:53 AM Radiology Results (Last 30 days) 02/04/22 0546 XR CHEST PORTABLE Final result Impression: IMPRESSION: Stable cardiomegaly and mild pulmonary vascular congestion. Referred By: ARISTEO DUVALL Interpreted By: Regulo Campo MD, 02/04/2022 6:39 AM 02/02/22 1419 NM PHARM NUC STRESS TEST 1DAY Final result 02/01/22 1426 USE ECHOCARDIOGRAM W CON Final result 02/01/22 0614 XR CHEST PORTABLE Final result Impression: IMPRESSION: ======== 1. Cardiomegaly with pulmonary vascular congestion and central infiltrates suspicious for early edema Referred By: ARISTEO DUVALL Interpreted By: Nico Mann MD, 02/01/2022 6:46 AM 01/29/22 1502 XR ANKLE RT M3V Final result Impression: Impression: 1. The lateral malleolar fracture is somewhat less conspicuous likely due to some degree of healing. 2. Persistent soft tissue swelling. 3. Moderate hindfoot and midfoot arthritis. Sizable calcaneal enthesophytes. Ordered By: WHITLEY HAMILTON Interpreted By: Luis Burger Jr, MD, 01/30/2022 8:40 AM 01/15/22 1251 XR ANKLE RT M3V Final result Impression: IMPRESSION: Unchanged radiographic appearance of the minimally displaced distal fibular fracture. No significant healing changes noted. Ordered By: WHITLEY HAMILTON Interpreted By: Misael Diaz MD, 01/15/2022 3:09 PM ASSESSMENT AND PLAN: Obie Sims is a 66-year-old male history of CAD, COPD, aortic stenosis s/p MVR in 1999 and Bioprosthetic in 2013, Type 2 DM, A-fib on warfarin, Chronic HFpEF, severe pulm hypertension, hypertension,hyperlipidemia, CKD3(baseline creatinine 1.6- 1.8), CVA (lacunar infarct in nicholas & L. 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 Admitted for NSTEMI and fall: Fall Lactic Acidosis Leukocytosis -- Cx NGTD. CXR concerning for CAP -- C/O cough and sputum. Continue Ceftriaxone and Doxy and follow Cx. ?? NSTEMI CAD --LHC in Aug 2020 w/ proximal LAD 60% stenosis, and ostial RCA 50% stenosis. Manage medically. -- Given therapeutic Lovenox -- Cardiology following. -- Continue aspirin, Coreg, and atorvastatin. ?? Chronic HFpEF Aortic stenosis s/p MVR in 1999 & bioprosthetic valve (2013) Severe pulm hypertension Hypertension Hyperlipidemia -- Continue IV Lasix given congestion on CXR. Also C/O PND which is slightly better. -- Repeat CXR in AM. -- Continue amlodipine, and Coreg. will hold losartan ?? Atrial Fibrillation: cont Coreg. Continue therapeutic Lovenox - Pharmacy consulted for Warfarin dosing. ?? CKD 3: Baseline Cc 1.6-1.8. ?? Diabetes: Hold glipizide. SSI w/ accuchecks ACHS. ?? COPD: Cont home inhalers. ?? CODE STATUS: FULL DVT prophylaxis: Lovenox therapeutic KATE BOSTON MD 02/04/2022 * BRADLEY Travis - 02/04/2022 2:03 PM CDT OT Treatment Discharge Recommendation: Swing bed unit Activity Recommendation for practice assistant: Up with 1, gait belt and 2ww. Ambulate to bathroom 02/04/22 1352 Therapy Visit Reason for admission Pt presented to the hospital after he tripped and fell at home. Head CT, facial bone CT, pelvis x-ray and L hand x-ray all (-) Admitted with possible NSTEMI .................. Therapy orders: Eval and Treat ..................... PMH: CAD, COPD, s/p AVR, DM2, afib, CHF, severe pulmonary HTN, CKD stage III, CVA, lipoma, HTN, HLD, recent ankley fracture Ordering Provider Dr. Montana Acute Inpatient OT Time Calculation OT Start Time 1352 OT Stop Time 1403 OT Time Calculation (min) 11 min Precautions General Precautions Fall Risk;Bed Alarm;Chair Alarm Other tele Home Living Home Living Comments Per Eval: Pt lives with his daughter and her family in a one story house with a basement. Pt has 2-3 YANG with handrail. Pt reports he lives in the basement and has a chair lift to the basement. Pt has a walk-in shower with seat and grab bars and standard toilet with riser with arms. Prior to admission pt was independent with all ADLs. Pt's daughter takes care of all IADLs. Ptwas ambulating with wh/walker in the house and cane when he would go out of the home. Subjective Subjective RN ok'd therapy session. Pt sitting in chair upon entering room. Pt agreeable to session. Pain Pain Yes Pain Score 9 Location L side (pt sitting comfortably in chair and does not show signs of pain) Interventions Re-direction;Re-positioning Activity Tolerance Activity Tolerance Comments Limited by acute pain and acute on chronic deconditioning as well as self-limiting behaviors Cognition Overall Cognitive Status WFL Arousal/Alertness Appropriate responses to stimuli Attention Span Attends with cues to redirect Memory Appears intact Orientation Level Oriented X4 Comments Required increased encouragement to participate in mobility ADL Additional Comments Pt declined ADLs on this date Bed Mobility Other (Comment) not tested. Pt sitting in chair upon entering/exiting room Functional Transfers Sit to Stand Contact guard assist Functional Mobility Functional mobility in room with 2ww and CGA. Ambulated to door and back to chair x2 Balance Sitting - Static SBA Sitting - Dynamic CGA;SBA Standing - Static CGA;Support of both upper extremities Standing - Dynamic CGA;Support of both upper extremities Other (Comment) Unsteady but no LOB during this session OT Assessment OT Assessment Pt making progress toward OT goals. Pt with improved functional mobility this date. Pt stating he could do more but was in too much pain. Pt still limited by weakness, pain and deconditioning. Pt would benefit from skilled OT in the acute setting before d/c to swing bed unit to further improve strength, balance, transfers and ADL independence Recommendation OT Recommendation Swing bed unit Plan Progress Slow progress, decreased activity tolerance OT Frequency 4 times/week OT - Next Appointment 02/04/22 If this is the last treatment note, it will serve as the discharge summary Yes End of Session End of Session Safety Chair alarm set/activated;Call light within reach;Nursing aware of session * Piyush Pandey MD - 02/04/2022 12:30 PM CDT Chart reviewed. ?? Elevated troponin level S/P AVR X2 Chronic HFpEF Atrial fibrillation -- S/P ablation, 2016. CAD Carotid artery disease PAD HTN COPD CVA Restless leg syndrome ?? Rhythm: Afib. BP 158/70 mmHg. Presently without cardiac complaints. Labs reviewed. Peak Troponin 247. Echo: LVEF 54%, RVEF reduced w/ PASP 34+RAP, bioprosthetic aortic valve with peak gradient of 33 mmHg (mean gradient 21 mmHg). RNST: no ischemia. LVEF 51%. ? Vitals reviewed. Physical Exam Constitutional:?Healthy Appearance.? Neck:??Neck supple.?No JVD. ?? Cardiac: Irregular rhythm. /6 CALLIE. No rub. Abdomen:??Abdomen soft.??Bowel sounds normal.?No distension.??No tenderness.??Abdominal aorta not palpably enlarged.? Pulmonary:??Effort normal.??Breath sounds normal.?Diminished lung sounds in bases, slightly shallow breathing. Skin:??Warm??and dry.?No rash.??Scattered ecchymosis and abrasions. Musculoskeletal:??No kyphosis. Normal ROM. Tardive dyskinesia. ?? Neurological:??Alert.??Oriented x 3.? Home soon. Will arrange OP Cardiology follow up. I spent 20 minutes reviewing the chart, taking the history, examining the patient, and documenting in the chart. * Gita Walker, COLORED LI[employer] P[employer]IC APPLIER - 02/04/2022 8:59 AM CDT PT Treatment Discharge Recommendation: Swing bed unit Activity Recommendation for practice assistant: ambulate pt to restroom using gait belt and 2ww. 02/04/22 0846 Therapy Visit Ordering Provider Dr. Montana Subjective RN approves PT session. Pt agrees to PT with encouragement. Pt states that his L side isreally hurting. Reason for admission Pt presented to the hospital after he tripped and fell at home. Head CT, facial bone CT, pelvis x-ray and L hand x-ray all (-) Admitted with possible NSTEMI .................. Therapy orders: Eval and Treat ..................... PMH: CAD, COPD, s/p AVR, DM2, afib, CHF, severe pulmonary HTN, CKD stage III, CVA, lipoma, HTN, HLD, recent ankley fracture Verified Two Patient Identifiers Yes Patient consents to therapy Yes Acute Inpatient PT Time Calculation PT Start Time 0846 PT Stop Time 0859 PT Time Calculation (min) 13 min Precautions General Precautions Fall Risk;Bed Alarm;Chair Alarm Other tele Home Living Home Living Comments Pt lives with his daughter and her family in a one story house with a basement. Pt has 2-3 YANG with handrail. Pt reports he lives in the basement and has a chair lift to the basement. Pt has a walk-in shower with seat and grab bars and standard toilet with riser with arms. Prior to admission pt was independent with all ADLs. Pt's daughter takes care of all IADLs. Pt was ambulating with wh/walker in the house and cane when he would go out of the home. Activity Tolerance Activity Tolerance Comments Limited by acute pain and acute on chronic deconditioning as well as self-limiting behaviors Cognition Overall Cognitive Status WFL Arousal/Alertness Appropriate responses to stimuli Attention Span Attends with cues to redirect Following Commands Follows all commands and directions without difficulty Safety Judgment Decreased awareness of need for assistance Awareness of Errors Assistance required to identify errors made Deficits Decreased awareness of deficits Problem Solving Assistance required to identify errors made Comments Required increased encouragement to participate in mobility Bed Mobility Rolling Mod assist to right Supine to Sit Mod assist to right Other (Comment) HOB was elevated. Pt completed bed mobility via log roll technique. Pt requires increased time and cues to complete. Pt yelling out in pain/fear during bed mobility. Electrical Maintenance Supervisor used glass robot operator pad to assist with bed mobility. TRANSFERS Sit to Stand Min assist;Contact guard assist Bed to Chair Min assist;Contact guard assist (using 2ww for support.) Other (Comment) VCs for safe hand placement and eccentric control w/ descent. Gait Gait Assistance Contact guard assist (Heavy) Assistive Device 2 Wheeled walker Distance Ambulated (ft) 6 ft (approx. w/ an additional approx 12 feet) Other (Comment) Pt ambulates with shorter step length, decreased foot clearance, and decreased gaitspeed. Pt requires VCs to increase step length and foot clearance. Electrical Maintenance Supervisor followed behind pt with chair initially for safety. Feel pt is generally unsteady. Balance Sitting - Static SBA Sitting - Dynamic CGA;SBA Standing - Static CGA;Support of both upper extremities Standing - Dynamic CGA;Support of both upper extremities (Heavy) Exercises Sitting LE Exercise Pt performed BLE sitting therex x 5- 10 reps to improve blood flow and activitytolerance: LAQs, ankle pumps, marching. Electrical Maintenance Supervisor encouraged pt to perform therex throughout the day. PT Assessment PT Assessment Pt tolerated session well/fair. Feel pt demo self limiting behaviors during session. Pt demo no LOB during ambulation but feel pt appears generally unsteady. Feel pt is not safe to return home at this time and could greatly benefit from continued PT at swing bed unit to improve balance, gait, activity tolerance, and overall safety with functional mobility. Recommendation PT Recommendation Swing bed unit Plan PT Treatments/Interventions Gait Training;Therapeutic Activities;Therapeutic Exercises;Neuromuscular re-education Progress Slow progress, decreased activity tolerance PT Frequency 5 times/week PT - Next Appointment 02/04/22 If this is the last treatment note,it will serve as the discharge summary Yes End of Session End of Session Safety Call light within reach;Nursing aware of session;Chair alarm set/activated * Geraldine Murphy RN - 02/03/2022 4:50 PM CDT Patient's daughter works at [employer] and has asked that a referral be sent to [facility]. Referral sent and will follow up tomorrow. Geraldine Murphy RN, CM Cardiac Buffer Nickel/Biochemistry Technician ext [phone] Email: [email or web address] * Kate Boston MD - 02/03/2022 2:15 PM CDT Obie Sims is a 66-year-old male patient. SUBJECTIVE: Patient resting comfortably No acute events SNOMED CT(R) 1. Elevated troponin RAISED CARDIAC ENZYME OR MARKER 2. NSTEMI (non-ST elevated myocardial infarction) (CMS/HCC) MYOCARDIAL INFARCTION 3. Chest pain CHEST PAIN Past Medical History: Diagnosis Date ??? Abnormal [...] other complications ??? Weight gain with edema No Known Allergies Active Problems: NSTEMI (non-ST elevated myocardial infarction) (CMS/HCC) SNOMED CT(R): MYOCARDIAL INFARCTION Elevated troponin SNOMED CT(R): RAISED CARDIAC ENZYME OR MARKER Elevated brain natriuretic peptide (BNP) level SNOMED CT(R): HORMONE LEVEL - FINDING Fall SNOMED CT(R): FALL Blood pressure 131/76, pulse 82, temperature 97.3 ??F (36.3 ??C), temperature source Oral, resp. rate 18, height 5' 6 (1.676 m), weight 100.1 kg (220 lb 10.9 oz), SpO2 93 %. Review of Systems Constitutional: Negative for chills, fever, malaise/fatigue and weight loss. HENT: Negative for ear pain, hearing loss and tinnitus. Eyes: Negative for blurred vision, double vision and photophobia. Respiratory: Negative for cough, hemoptysis and sputum production. Cardiovascular: Negative for chest pain, palpitations and orthopnea. Gastrointestinal: Negative for abdominal pain, heartburn, nausea and vomiting. Genitourinary: Negative for dysuria and urgency. Skin: Negative for itching and rash. Physical Exam Constitutional: General: He is not in acute distress. Appearance: He is normal weight. He is not toxic-appearing. HENT: Head: Normocephalic and atraumatic. Mouth/Throat: Mouth: Mucous membranes are moist. Cardiovascular: Rate and Rhythm: Normal rate and regular rhythm. Pulmonary: Effort: Pulmonary effort is normal. No respiratory distress. Breath sounds: No stridor. Rhonchi present. No wheezing or rales. Neurological: Mental Status: He is alert. Current Facility-Administered Medications: ??? acetaminophen (TYLENOL) tablet 650 mg, 650 mg, Oral, Q6H PRN, Segundo Montana MD ??? allopurinol (ZYLOPRIM) tablet 300 mg, 300 mg, Oral, Daily, Segundo Montana MD, 300 mg at 02/03/2256 ??? amLODIPine (NORVASC) tablet 2.5 mg, 2.5 mg, Oral, Daily, Segundo Montana MD, 2.5 mg at ??? aspirin EC (ECOTRIN) tablet 81 mg, 81 mg, Oral, Daily, Segundo Montana MD, 81 mg at 02/03/22954 ??? atorvastatin (LIPITOR) tablet 80 mg, 80 mg, Oral, Daily, Segundo Montana MD, 80 mg at 02/03/2256 ??? carvedilol (COREG) tablet 6.25 mg, 6.25 mg, Oral, BID, Segudno Montana MD, 6.25 mg at 02/03/22954 ??? cefTRIAXone (ROCEPHIN) 1 g in sodium chloride 0.9 % 50 mL IVPB, 1 g, Intravenous, Q24H, Kate Boston MD, Stopped at 02/02/22 1710 ??? clonazePAM (klonoPIN) tablet 1 mg, 1 mg, Oral, Nightly PRN, Segundo Montana MD, 1 mg at 02/01/223 ??? doxycycline hyclate (VIBRA-TABS) tablet 100 mg, 100 mg, Oral, 2 times per day, Kate Boston MD, 100 mg at 02/03/22954 ??? enoxaparin (LOVENOX) 100 mg/mL syringe 100 mg, 1 mg/kg, Subcutaneous, Q12H, Saroj Rodriges MD, 100 mg at 02/03/22 0515 ??? [START ON 02/04/2022] furosemide (LASIX) injection 40 mg, 40 mg, Intravenous, Daily, Kate Boston MD ??? gabapentin (NEURONTIN) capsule 200 mg, 200 mg, Oral, QAM, 200 mg at 02/03/22 0606 AND gabapentin (NEURONTIN) capsule 400 mg, 400 mg, Oral, after lunch, 400 mg at 02/02/22 1546 AND gabapentin (NEURONTIN) capsule 600 mg, 600 mg, Oral, Nightly at bedtime, Segundo Montana MD, 600 mg at 02/02/22 2020 ??? HYDROcodone-acetaminophen (NORCO) 5-325 MG tablet 1 tablet, 1 tablet, Oral, Q6H PRN, Segundo Montana MD, 1 tablet at 02/03/22 1037 ??? insulin lispro (HUMALOG) injection 0-6 Units, 0-6 Units, Subcutaneous, 4x Daily AC and at bedtime, Segundo Montana MD, 2 Units at 02/02/22 2150 ??? ipratropium-albuterol (COMBIVENT RESPIMAT) 20-100 MCG/ACT inhaler 1 puff, 1 puff, Inhalation, Q6H PRN, Segundo Montana MD ??? lidocaine 4 % patch 2 patch, 2 patch, Transdermal, Q24H, Kate Boston MD ??? methocarbamol (ROBAXIN) tablet 500 mg, 500 mg, Oral, TID PRN, Saroj Rodriges MD, 500 mg at 02/02/22 1546 ??? ondansetron (ZOFRAN) injection 4 mg, 4 mg, Intravenous, Q8H PRN, Segundo Montana MD ??? pantoprazole EC (PROTONIX) tablet 40 mg, 40 mg, Oral, Daily, Segundo Montana MD, 40 mg at 02/03/22 0956 ??? potassium chloride CR (KLOR-CON M) tablet 40 mEq, 40 mEq, Oral, Once, Kate Boston MD ??? rOPINIRole (REQUIP) tablet 4 mg, 4 mg, Oral, nightly, Segundo Montana MD, 4 mg at 02/02/222020 ??? Senna (SENOKOT) 8.6 MG tablet 8.6 mg, 8.6 mg, Oral, Daily PRN, Segundo Montana MD ??? sertraline (ZOLOFT) tablet 50 mg, 50 mg, Oral, Daily, Segundo Montana MD, 50 mg at 02/03/22 0956 ??? traZODone (DESYREL) tablet 100 mg, 100 mg, Oral, Nightly PRN, Kate Boston MD CBC Lab Results Component Value Date/Time WBC 10.7 02/03/2022 04:35 AM Lab Results Component Value Date/Time RBC 3.67 (L) 02/03/2022 04:35 AM Lab Results Component Value Date/Time HGB 10.4 (L) 02/03/2022 04:35 AM Lab Results Component Value Date/Time HCT 32.0 (L) 02/03/2022 04:35 AM BMP Lab Results Component Value Date/Time CO2 31.0 02/03/2022 04:35 AM Lab Results Component Value Date/Time CA 9.2 02/03/2022 04:35 AM Lab Results Component Value Date/Time CL 99 02/03/2022 04:35 AM Lab Results Component Value Date/Time CR 1.34 (H) 02/03/2022 04:35 AM Lab Results Component Value Date/Time GLU 193 (H) 02/03/2022 04:35 AM Lab Results Component Value Date/Time NA 136 02/03/2022 04:35 AM Lab Results Component Value Date/Time K 3.3 (L) 02/03/2022 04:35 AM Lab Results Component Value Date/Time BUN 29 (H) 02/03/2022 04:35 AM Radiology Results (Last 30 days) 02/02/22 1419 NM PHARM NUC STRESS TEST 1DAY Final result 02/01/22 1426 USE ECHOCARDIOGRAM W CON Final result 02/01/22 0614 XR CHEST PORTABLE Final result Impression: IMPRESSION: ======== 1. Cardiomegaly with pulmonary vascular congestion and central infiltrates suspicious for early edema Referred By: ARISTEO DUVALL Interpreted By: Nico Mann MD, 02/01/2022 6:46 AM 01/29/22 1502 XR ANKLE RT M3V Final result Impression: Impression: 1. The lateral malleolar fracture is somewhat less conspicuous likely due to some degree of healing. 2. Persistent soft tissue swelling. 3. Moderate hindfoot and midfoot arthritis. Sizable calcaneal enthesophytes. Ordered By: WHITLEY HAMILTON Interpreted By: Luis Burger Jr, MD, 01/30/2022 8:40 AM 01/15/22 1251 XR ANKLE RT M3V Final result Impression: IMPRESSION: Unchanged radiographic appearance of the minimally displaced distal fibular fracture. No significant healing changes noted. Ordered By: WHITLEY HAMILTON Interpreted By: Misael Diaz MD, 01/15/2022 3:09 PM ASSESSMENT AND PLAN: Obie Sims is a 66-year-old male history of CAD, COPD, aortic stenosis s/p MVR in 1999 and Bioprosthetic in 2013, Type 2 DM, A-fib on warfarin, Chronic HFpEF, severe pulm hypertension, hypertension,hyperlipidemia, CKD3(baseline creatinine 1.6- 1.8), CVA (lacunar infarct in nicholas & L. 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 Admitted for NSTEMI and fall: Fall Lactic Acidosis Leukocytosis -- Cx NGTD. CXR concerning for CAP -- C/O cough and sputum. Continue Ceftriaxone and Doxy and follow Cx. ?? NSTEMI CAD --LHC in Aug 2020 w/ proximal LAD 60% stenosis, and ostial RCA 50% stenosis. Manage medically. -- Given therapeutic Lovenox -- Cardiology following. -- Continue aspirin, Coreg, and atorvastatin. ?? Chronic HFpEF Aortic stenosis s/p MVR in 1999 & bioprosthetic valve (2013) Severe pulm hypertension Hypertension Hyperlipidemia -- Continue IV Lasix given congestion on CXR. Also C/O PND which is slightly better. -- Repeat CXR in AM. -- Continue amlodipine, and Coreg. will hold losartan ?? Atrial Fibrillation: cont Coreg. Was on bridge w/ lovenox due to recently holding warfarin for colonoscopy. For now hold further warfarin pending cardiology eval. Continue Lovenox for now. ?? CKD 3: Baseline Cc 1.6-1.8. ?? Diabetes: Hold glipizide. SSI w/ accuchecks ACHS. ?? COPD: Cont home inhalers. ?? CODE STATUS: FULL DVT prophylaxis: Lovenox therapeutic KATE BOSTON MD 02/03/2022 * Geraldine Murphy RN - 02/03/2022 1:26 PM CDT Patient resting in bed. Does not feel well today. CXR done today shows possible PNA and congestion. IV Lasix and antbx started. Cardiology is seeing also. States that his demographics and MD are correct. Lives with his daughter and her family. They have turned the basement into his area. There is a stair lift from the basement to the ground floor. He uses a wheeled walker around the house and a cane in the community. Was independent prior to admission. 02/03/22 1318 Referral Data Referral Reason Discharge Planning Source of Information Patient;Chart review Patient Information Primary Caregiver Self Support System Immediate family Baseline ADL's Functional Status Independent;Assistive device Living Arrangements Children;Family members Type of Residence Private residence Ambulation Assistance No Active DME Cane;Front wheel walker Bathing/Grooming Assistance No Dressing Assistance No Behavior Oriented;Cooperative Communication Talks;Understands speaking;Understands Mauritian Socioeconomic Needs Caregiver Needed No At Risk of Abuse or Neglect No Adequate Resources Yes Psychological Needs: Mental health concerns No Suspected Drug or Alcohol Abuse No Inappropriate Patient/Family Behaviors No Difficult Adjustment to Diagnosis No Recent Hospitalization Recent Hospitalization within 30 days No Anticipated Discharge Needs Change in Living Arrangements Not Known at this time In-Home Care or Equipment Not Known at this time Vocational and/or Role Loss Not Known at this time Inability to Complete ADL's Not Known at this time Legal Information Guardianship Documentation Not applicable Anticipated DC Plan Living Arrangements Children;Family members Support Systems Children;Family members Type of Residence Private residence Assistance Needed No Patient expects to be discharged to: Home Geraldine Murphy RN, CM Cardiac Buffer Nickel/Biochemistry Technician ext [phone] Email: [email or web address] * Piyush Pandey MD - 02/03/2022 8:15 AM CDT Chart reviewed. ?? Elevated troponin level S/P AVR X2 Chronic HFpEF Atrial fibrillation -- S/P ablation, 2016. CAD Carotid artery disease PAD HTN COPD CVA Restless leg syndrome ?? Rhythm: Afib. BP 131/76 mmHg. Presently without cardiac complaints. Labs reviewed. Peak Troponin 247. Echo: LVEF 54%, RVEF reduced w/ PASP 34+RAP, bioprosthetic aortic valve with peak gradient of 33 mmHg (mean gradient 21 mmHg). ? Vitals reviewed. Physical Exam Constitutional:?? Healthy Appearance.?? Appears uncomfortable. Neck:??Neck supple.?? No JVD. Cardiac: Irregular rhythm. 08/28 CALLIE. No rub. Abdomen:??Abdomen soft.??Bowel sounds normal.?? No distension.??No tenderness.??Abdominal aorta notpalpably enlarged.?? Pulmonary:??Effort normal.??Breath sounds normal.?? Diminished lung sounds in bases, slightly shallow breathing. Skin:??Warm and dry.?? No rash.??Scattered ecchymosis and abrasions. Musculoskeletal:??No kyphosis. Normal ROM. Tardive dyskinesia. ?? Neurological:??Alert.??Oriented x 3. Regadenoson nuclear stress test shows no ischemia. LVEF 51%. Home soon Will arrange follow up in Cardiology clinic. I spent 30 minutes reviewing the chart, taking the history, examining the patient, and documenting in the chart. * Piyush Pandey MD - 02/02/2022 6:28 PM CDT Chart reviewed. Elevated troponin level S/P AVR X2 Chronic HFpEF Atrial fibrillation -- S/P ablation, 2016. CAD Carotid artery disease PAD HTN COPD CVA Restless leg syndrome Rhythm: Afib. BP 140/66 mmHg. Presently without cardiac complaints. Labs reviewed. Peak Troponin 247. Echo: LVEF 54%, RVEF reduced w/ PASP 34+RAP, bioprosthetic aortic valve with peak gradient of 33 mmHg (mean gradient 21 mmHg). Vitals reviewed. Physical Exam Constitutional: Healthy Appearance. Appears uncomfortable. Neck: Neck supple. No JVD. Cardiac: Irregular rhythm. 08/28 CALLIE. No rub. Abdomen: Abdomen soft. Bowel sounds normal. No distension. No tenderness. Abdominal aorta not palpably enlarged. Pulmonary: Effort normal. Breath sounds normal. Diminished lung sounds in bases, slightly shallow breathing. Skin: Warm and dry. No rash. Scattered ecchymosis and abrasions. Musculoskeletal: No kyphosis. Normal ROM. Tardive dyskinesia. Neurological: Alert. Oriented x 3. IV Lasix given. Await results of nuclear stress testing. * Kate Boston MD - 02/02/2022 2:17 PM CDT Obie Sims is a 66-year-old male patient. SUBJECTIVE: Patient resting comfortably No acute events SNOMED CT(R) 1. Elevated troponin RAISED CARDIAC ENZYME OR MARKER 2. NSTEMI (non-ST elevated myocardial infarction) (CMS/HCC) MYOCARDIAL INFARCTION 3. Chest pain CHEST PAIN Past Medical History: Diagnosis Date ??? Abnormal [...] other complications ??? Weight gain with edema No Known Allergies Active Problems: NSTEMI (non-ST elevated myocardial infarction) (CMS/HCC) SNOMED CT(R): MYOCARDIAL INFARCTION Elevated troponin SNOMED CT(R): RAISED CARDIAC ENZYME OR MARKER Elevated brain natriuretic peptide (BNP) level SNOMED CT(R): HORMONE LEVEL - FINDING Fall SNOMED CT(R): FALL Blood pressure (!) 140/66, pulse 62, temperature 98.2 ??F (36.8 ??C), resp. rate 18, height 5' 6 (1.676 m), weight 97.5 kg (214 lb 15.2 oz), SpO2 95 %. Review of Systems Constitutional: Negative for chills, fever, malaise/fatigue and weight loss. HENT: Negative for ear pain, hearing loss and tinnitus. Eyes: Negative for blurred vision, double vision and photophobia. Respiratory: Negative for cough, hemoptysis and sputum production. Cardiovascular: Negative for chest pain, palpitations and orthopnea. Gastrointestinal: Negative for abdominal pain, heartburn, nausea and vomiting. Genitourinary: Negative for dysuria and urgency. Skin: Negative for itching and rash. Physical Exam Constitutional: General: He is not in acute distress. Appearance: He is normal weight. He is not toxic-appearing. HENT: Head: Normocephalic and atraumatic. Mouth/Throat: Mouth: Mucous membranes are moist. Cardiovascular: Rate and Rhythm: Normal rate and regular rhythm. Pulmonary: Effort: Pulmonary effort is normal. No respiratory distress. Breath sounds: No stridor. Rhonchi present. No wheezing or rales. Neurological: Mental Status: He is alert. Current Facility-Administered Medications: ??? acetaminophen (TYLENOL) tablet 650 mg, 650 mg, Oral, Q6H PRN, Segundo Montana MD ??? allopurinol (ZYLOPRIM) tablet 300 mg, 300 mg, Oral, Daily, Segundo Montana MD, 300 mg at 02/01/22 1519 ??? amLODIPine (NORVASC) tablet 2.5 mg, 2.5 mg, Oral, Daily, Segundo Montana MD, 2.5 mg at 800 ??? aspirin EC (ECOTRIN) tablet 81 mg, 81 mg, Oral, Daily, Segundo Montana MD, 81 mg at 02/01/22 0800 ??? atorvastatin (LIPITOR) tablet 80 mg, 80 mg, Oral, Daily, Segundo Montana MD, 80 mg at 02/01/22 0759 ??? carvedilol (COREG) tablet 6.25 mg, 6.25 mg, Oral, BID, Segundo Montana MD, 6.25 mg at 02/01/222101 ??? cefTRIAXone (ROCEPHIN) 1 g in sodium chloride 0.9 % 50 mL IVPB, 1 g, Intravenous, Q24H, Kate Boston MD ??? clonazePAM (klonoPIN) tablet 1 mg, 1 mg, Oral, Nightly PRN, Segundo Montana MD, 1 mg at 02/01/222102 ??? doxycycline hyclate (VIBRA-TABS) tablet 100 mg, 100 mg, Oral, 2 times per day, Kate Boston MD ??? enoxaparin (LOVENOX) 100 mg/mL syringe 100 mg, 1 mg/kg, Subcutaneous, Q12H, Saroj Rodriges MD, 100 mg at 02/02/22 0043 ??? furosemide (LASIX) injection 40 mg, 40 mg, Intravenous, BID, Kate Boston MD ??? gabapentin (NEURONTIN) capsule 200 mg, 200 mg, Oral, QAM, 200 mg at 02/02/22 0635 AND gabapentin (NEURONTIN) capsule 400 mg, 400 mg, Oral, after lunch, 400 mg at 02/01/22 1336 AND gabapentin (NEURONTIN) capsule 600 mg, 600 mg, Oral, Nightly at bedtime, Segundo Montana MD, 600 mg at 02/01/222101 ??? HYDROcodone-acetaminophen (NORCO) 5-325 MG tablet 1 tablet, 1 tablet, Oral, Q6H PRN, Segundo Montana MD, 1 tablet at 02/02/22 1141 ??? insulin lispro (HUMALOG) injection 0-6 Units, 0-6 Units, Subcutaneous, 4x Daily AC and at bedtime, Segundo Montana MD, 1 Units at 02/01/222219 ??? ipratropium-albuterol (COMBIVENT RESPIMAT) 20-100 MCG/ACT inhaler 1 puff, 1 puff, Inhalation, Q6H PRN, Segundo Montana MD ??? methocarbamol (ROBAXIN) tablet 500 mg, 500 mg, Oral, TID PRN, Saroj Rodriges MD, 500 mg at 02/01/222218 ??? ondansetron (ZOFRAN) injection 4 mg, 4 mg, Intravenous, Q8H PRN, Segundo Montana MD ??? pantoprazole EC (PROTONIX) tablet 40 mg, 40 mg, Oral, Daily, Segundo Montana MD, 40 mg at 02/01/22 0800 ??? rOPINIRole (REQUIP) tablet 4 mg, 4 mg, Oral, nightly, Segundo Montana MD, 4 mg at 02/01/222101 ??? Senna (SENOKOT) 8.6 MG tablet 8.6 mg, 8.6 mg, Oral, Daily PRN, Segundo Montana MD ??? sertraline (ZOLOFT) tablet 50 mg, 50 mg, Oral, Daily, Segundo Montana MD, 50 mg at 02/01/22 0759 ??? traZODone (DESYREL) tablet 100 mg, 100 mg, Oral, Nightly PRN, Kate Boston MD CBC Lab Results Component Value Date/Time WBC 12.3 (H) 02/01/2022 11:27 AM Lab Results Component Value Date/Time RBC 3.67 (L) 02/01/2022 11:27 AM Lab Results Component Value Date/Time HGB 10.5 (L) 02/01/2022 11:27 AM Lab Results Component Value Date/Time HCT 31.9 (L) 02/01/2022 11:27 AM BMP Lab Results Component Value Date/Time CO2 28.2 02/02/2022 10:23 AM Lab Results Component Value Date/Time CA 9.7 02/02/2022 10:23 AM Lab Results Component Value Date/Time CL 98 02/02/2022 10:23 AM Lab Results Component Value Date/Time CR 1.46 (H) 02/02/2022 10:23 AM Lab Results Component Value Date/Time GLU 182 (H) 02/02/2022 10:23 AM Lab Results Component Value Date/Time NA 135 (L) 02/02/2022 10:23 AM Lab Results Component Value Date/Time K 3.5 02/02/2022 10:23 AM Lab Results Component Value Date/Time BUN 33 (H) 02/02/2022 10:23 AM Radiology Results (Last 30 days) 02/01/22 1426 USE ECHOCARDIOGRAM W CON Final result 02/01/22 0614 XR CHEST PORTABLE Final result Impression: IMPRESSION: ======== 1. Cardiomegaly with pulmonary vascular congestion and central infiltrates suspicious for early edema Referred By: ARISTEO DUVALL Interpreted By: Nico Mann MD, 02/01/2022 6:46 AM 01/29/22 1502 XR ANKLE RT M3V Final result Impression: Impression: 1. The lateral malleolar fracture is somewhat less conspicuous likely due to some degree of healing. 2. Persistent soft tissue swelling. 3. Moderate hindfoot and midfoot arthritis. Sizable calcaneal enthesophytes. Ordered By: WHITLEY HAMILTON Interpreted By: Luis Burger Jr, MD, 01/30/2022 8:40 AM 01/15/22 1251 XR ANKLE RT M3V Final result Impression: IMPRESSION: Unchanged radiographic appearance of the minimally displaced distal fibular fracture. No significant healing changes noted. Ordered By: WHITLEY HAMILTON Interpreted By: Misael Diaz MD, 01/15/2022 3:09 PM ASSESSMENT AND PLAN: Obie Sims is a 66-year-old male history of CAD, COPD, aortic stenosis s/p MVR in 1999 and Bioprosthetic in 2013, Type 2 DM, A-fib on warfarin, Chronic HFpEF, severe pulm hypertension, hypertension,hyperlipidemia, CKD3(baseline creatinine 1.6- 1.8), CVA (lacunar infarct in nicholas & L. 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 Admitted for NSTEMI and fall: Fall Lactic Acidosis Leukocytosis -- Cx NGTD. CXR concerning for CAP -- C/O cough and sputum. Continue Ceftriaxone and Doxy and follow Cx. ?? NSTEMI CAD --[facility] in Aug 2020 w/ proximal LAD 60% stenosis, and ostial RCA 50% stenosis. Manage medically. -- Given therapeutic Lovenox -- Cardiology following. -- Continue aspirin, Coreg, and atorvastatin. ?? Chronic HFpEF Aortic stenosis s/p MVR in 1999 & bioprosthetic valve (2013) Severe pulm hypertension Hypertension Hyperlipidemia -- Start IV Lasix given congestion on CXR. Follow labs. -- Continue amlodipine, and Coreg. will hold losartan ?? Atrial Fibrillation: cont Coreg. Was on bridge w/ lovenox due to recently holding warfarin for colonoscopy. For now hold further warfarin pending cardiology eval. Continue Lovenox for now. ?? CKD 3: Baseline Cc 1.6-1.8. ?? Diabetes: Hold glipizide. SSI w/ accuchecks ACHS. ?? COPD: Cont home inhalers. ?? CODE STATUS: FULL DVT prophylaxis: Lovenox therapeutic KATE BOSTON MD 02/02/2022 * Lucille Alexandra, PT - 02/02/2022 11:50 AM CDTSummary: PT Eval PT Initial Evaluation Discharge Recommendation: Swing bed unit Activity Recommendation for practice assistant: Up with assist x 1-2 with Cris More 02/02/22 1300 Therapy Visit Ordering Provider Dr. Montana PT Received On 02/02/22 Subjective RN ok'd therapy session this morning. Pt supine in bed at start of session; agreeable totherapy evaluation. Pt reports recent ankle fx December 2021 - reports he was WABT and wearing a boot athome before but recently saw the doctor who reports fracture is healing. Reason for admission Pt presented to the hospital after he tripped and fell at home. Head CT, facial bone CT, pelvis x-ray and L hand x-ray all (-) Admitted with possible NSTEMI .................. Therapy orders: Eval and Treat ..................... PMH: CAD, COPD, s/p AVR, DM2, afib, CHF, severe pulmonary HTN, CKD stage III, CVA, lipoma, HTN, HLD, recent ankley fracture Verified Two Patient Identifiers Yes Patient consents to therapy Yes Acute Inpatient PT Time Calculation PT Start Time 1138 PT Stop Time 1150 PT Time Calculation (min) 12 min Precautions General Precautions Fall Risk;Bed Alarm;Chair Alarm Instructed on Precautions Yes;Verbalizes understanding Other tele [...] and standard toilet with riser with arms. Prior to admission pt was independent with all ADLs. Pt's daughter takes care of all IADLs. Pt was ambulating with wh/walker in the house and cane when he would go out of the home. Pain Pain Yes Pain Score 8 Location c/o pain in his L side Interventions Re-direction;Re-positioning;Informed RN (RN present to give pain meds at start of session) Activity Tolerance Activity Tolerance Comments Limited by acute pain and acute on chronic deconditioning as well as self-limiting behaviors Vision - Basic Assessment Current Vision No [...] Solving Assistance required to identify errors made Motor Planning Appears intact Perseveration Not present Initiation Appears intact Sensation Light Touch No apparent deficits Overall Extremity Assessment Lower Extremity AROM WFL throughout; keven LE strength grossly 4-/5 throughout Bed Mobility Supine to Sit Mod assist to right;Assist of 2 Other (Comment) Pt putting forth less than maximal effort for supine to sitting at EOB this date TRANSFERS Sit to Stand Min assist;Assist of 2 Bed to Chair Min assist;Assist of 2 Other (Comment) Pt refused to attempt standing with wh/walker this date. Gait Other (Comment) Not formally tested; however, pt able to take steps to chair with minimal assist x 2. Pt refused to attempt standing with wh/walker and refused to attempt ambulation after transferring to chair this date. Pt reporting he cannot breathe; however, pt noted to be holding his breath during mobility - instructed not to hold his breath and educated on deep breathing techniques for pain control/calming effects. Balance Sitting - Static SBA Sitting - Dynamic SBA Standing - Static Min Assist;Assist of 2 Persons Standing - Dynamic Min Assist;Assist of 2 Persons Other (Comment) Pt with no overt LOB noted this session; slightly unsteady in standing and with transfers as this was pt's first time OOB this admission Assessment Personal Factors/Comorbidities Impacting Care 3-4 personal factors/comorbidities Examination of Body Systems Moderate (3 or more Elements) Objectives of Body Systems Impaired bed mobility;Impaired transfers;Impaired ambulation;Impaired balance;Decreased LE strength;Decreased safe judgement;Decreased endurance Clinical Presentation of Patient Evolving and changing characteristics Complexity Level of Evaluation Moderate Prognosis Good Recommendation PT Recommendation Swing bed unit Plan PT Treatments/Interventions Gait Training;Therapeutic Exercises;Therapeutic Activities;Patient/family training PT Frequency 5 times/week PT - Next Appointment 02/02/22 If this is the last treatment note,it will serve as the discharge summary Yes End of Session End of Session Safety Chair alarm set/activated;Call light within reach;Nursing aware of session;Transfer status education Pt is a 66 year old male admitted to the hospital with NSTEMI. Pt presents with decreased strength and endurance leading to deficits in bed mobility, transfers, and ambulation. Pt would benefit from continued therapy services to help improve his strength and overall functional independence. P/T will continue to follow and progress as able. The below POC to be followed until 02/12/22 at that time POC will be re-assessed to ensure patient is making appropriate progression. Pt. will be able to perform supine to/from sitting at EOB with Independent to improve mobility. Pt. will be able to perform sit to/from standing with Modified [place] using wheeled walker toimprove independence. Pt. will be able to ambulate 100 feet with Modified [place] using wheeled walker to help improve strength and functional independence. Pt. will be able to maintain static sitting balance for 10-20 minutes with Independent to improve independence. Pt. will be able to maintain dynamic sitting balance on soft surface with Independent to improve functional mobility. Pt. will be able to maintain static standing balance 5-10 minutes with Modified [place] using wheeled walker to improve independence. Pt. will be able to maintain dynamic standing balance during side-stepping L/R and marching with Modified [place] using wheeled walker to improve functional mobility. * Tasneem Randolph, OT - 02/02/2022 11:50 AM CDTSummary: OT EVAL OT Initial Evaluation Discharge Recommendation: Swing bed unit Activity Recommendation for practice assistant: UP with Cris Newton 02/02/22 1138 Therapy Visit OT Received On 02/02/22 Reason for admission Pt presented to the hospital after he tripped and fell at home. Head CT, facial bone CT, pelvis x-ray and L hand x-ray all (-) Admitted with possible NSTEMI .................. Therapy orders: Eval and Treat ..................... PMH: CAD, COPD, s/p AVR, DM2, afib, CHF, severe pulmonary HTN, CKD stage III, CVA, lipoma, HTN, HLD, recent ankle fracture Ordering Provider Dr. Montana Verified Two Patient Identifiers Yes Patient consents to therapy Yes Acute Inpatient OT Time Calculation OT Start Time 1138 OT Stop Time 1150 OT Time Calculation (min) 12 min Precautions General Precautions Fall Risk;Bed Alarm;Chair Alarm Instructed on Precautions Yes;Verbalizes understanding Other tele Subjective Subjective RN ok'd therapy session this morning. Pt supine in bed at start of session; agreeable totherapy evaluation. Pt reports recent ankle fx December 2021 - reports he was WABT and wearing a boot athome before but recently saw the doctor who reports fracture is healing. Home Living Home Living Comments Pt lives with his daughter and her family in a one story house with a basement. Pt has 2-3 YANG with handrail. Pt reports he lives in the basement and has a chair lift to the basement. Pt has a walk-in shower with seat and grab bars and standard toilet with riser with arms. Prior to admission pt was independent with all ADLs. Pt's daughter takes care of all IADLs. Pt was ambulating with wh/walker in the house and cane when he would go out of the home. Pain Pain Yes Pain Score 8 Location c/o pain in his L side Interventions Re-direction;Re-positioning;Informed RN Activity Tolerance Activity Tolerance Comments Limited by acute pain and acute on chronic deconditioning as well as self-limiting behaviors Vision - Basic Assessment Current Vision No [...] Assistance required to identify errors made Comments Req min encouragement to participate in mobility and self care this date Motor Planning Appears intact Perseveration Not present Initiation Appears intact Overall Extremity Assessment Upper Extremity BUE WFL AROM, gross weakness BUE strength Hand Function Hand Dominance Right Gross Grasp Right;Left;Functional Coordination Functional Sensation Light Touch No apparent deficits ADL Additional Comments Pt setup beverage mgmt sitting upright in bed with RUE. Pt Max A to don socks supine in bed. Bed Mobility Supine to Sit Mod assist to right;Assist of 2 Other (Comment) Pt putting forth less than maximal effort for supine to sitting at EOB this date Functional Transfers Sit to Stand Min assist;Assist of 2 Bed to Chair Min assist;Assist of 2 Other (Comment) Pt Min A x2 sit to stand, and SPT To bedside chair with manual assistance declined to use walker this date Balance Sitting - Static SBA Sitting - Dynamic SBA Standing - Static Min Assist;Assist of 2 Persons Standing - Dynamic Min Assist;Assist of 2 Persons Other (Comment) Pt with no overt LOB noted this session; slightly unsteady in standing and with transfers as this was pt's first time OOB this admission Assessment Occupational Profile and History Complexity Moderate (Expanded) Performance Skills Deficits Bathing/showering;Dressing;Functional mobility;Personal hygiene and grooming;Toileting Performance Deficit Level Moderate (3-5 deficits) Clinical Decision Making Moderate (min/mod modifications) Complexity Level of Evaluation Moderate Prognosis Good Recommendation OT Recommendation Swing bed unit Plan Progress Slow progress, decreased activity tolerance OT Frequency 4 times/week OT - Next Appointment 02/02/22 If this is the last treatment note, it will serve as the discharge summary Yes End of Session End of Session Safety Chair alarm set/activated;Call light within reach;Nursing aware of session;Transfer status education Pt reports independence as functional status [employer]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 Pt presents with weakness, RLE pain, decreased independence with LB dressing, grooming, and functional transfers; decreased standing activity tolerance, balance, and safety for functional tasks. Pt would benefit from continued OT at the acute care setting in order to address above stated deficits and maximize functional independence. Anticipate Ptto require subacute therapy prior to d/c home. The below POC initiated 02/02/22 to be followed until 02/12 at that time POC to be re-assessed and modified if needed. Pt will complete all functional transfers in room and bathroom using 2WW with Modified Independencein order to increase independence with functional transfers. Pt will increase standing activity balance using 2WW for 3-5 minutes with Mod I in order to increase independence with ADLs, functional transfers, and leisure activities. Pt will perform all LB dressing using AE PRN including clothing retrieval with Modified [place] in order to increase independence with ADLs. Pt will brush teeth, wash face, brush hair, and wash hands standing at sink with 2WW with Modified [place] in order to increase independence with ADLs. Pt will perform all toileting tasks including clothing management using 2WW with Modified [place] in order to increase independence with functional transfers and ADLs. Pt will bathe whole body and wash hair seated on shower chair with Modified [place] in order to increase independence with ADLs. Pt will perform supine to sit and sit to supine bed mobility with Mck[place]on in order to increaseindependence with ADLs, transitional movements, and functional mobility. Pt will increase activity tolerance/endurance to 6-11 minutes of activity with 1-2 rest breaks in order to increase independence with ADLs, functional transfers, bed mobility, and leisure activities. Pt will participate in 15-30 minutes of therapuetic activities with 1-2 rest breaks in order to increase activity tolerance for increased independence with ADLs and IADLs. Pt will increase knowledge of energy conservation techniques, activity and rest routine, home safety, body mechanics and demonstrate use of techniques during functional activities with [place] in order to increase overall activity tolerance for increased independence with ADLs and IADLs. Pt will recall and perform 3/3 3-step commands during functional activity in order to increase functional cognition for increased independence and safety with ADLs and IADLs. Pt will increase Keven UE strength to 4+/5 in supportive sitting in order to increase independence with ADLs, activity tolerance, and functional transfers. Pt will increase safety and memory recalling basic orientation and following complex verbal commands with no verbal cuing to increase safety and independence with ADLs and functional transfers. * Saroj Rodriges MD - 02/01/2022 10:39 AM CDT Patient c/o pain in his both ankles and muscle spasm, admitted after a fall at home, has limited functional status at home. No chest pain. Noted troponin from OSH, awaiting repeat labs from here. Continue with IV fluids for mild rhabdo/lactic acidosis, for today continue with zosyn. Will likely discontinue zosyn in AM if all infectious work up in negative, cardiology seeing for elevated troponin,will f/u on cardiology service recommendations. Detail A&P per today's h&P. Dr. Boston will assume care in AM. documented in this encounter H&P Notes * Segundo Montana MD - 02/01/2022 5:27 AM CDT [facility] Hospitalist Admission H&P Attending Provider: Segundo Monatna MD PCP: MEGAN INFANTE MD Obie Sims is an 66-year-old male. Reason for Admission: NSTEMI (non-ST elevated myocardial infarction) ([facility]) HPI: Obie Sims is a 66-year-old male history of CAD, COPD, aortic stenosis s/p MVR in 1999 and Bioprosthetic in 2013, Type 2 DM, A-fib on warfarin, Chronic HFpEF, severe pulm hypertension, hypertension,hyperlipidemia, CKD3(baseline creatinine 1.6- 1.8), CVA (lacunar infarct in nicholas & L. 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 Patient tripped and fell to the floor. He fell on his left side. He had a hard time getting up and presented to ER for evaluation. He was on the ground for approximately [address] of the head was unremarkable and CT of the facial bones was negative for any fractures. Patient has left-sided small facial contusion. EKG showed A. fib with a heart rate in the 90s. Blood pressure 150/80. Lab work-upwith lactic acid 5.8, WBC 17.8, hemoglobin 12, PLT 192, NA 126, CO2 23, BUN 49, creatinine 1.8, glucose 175, and troponin 125. CK 565, ESR 37, CRp 0.6, Urinalysis was negative. Pro-BNp 2278, COVID pcr neg, and flu neg. Chest x-ray did not show any infiltrates. Pelvis x-ray negative. Left hand x-ray negative. Patient was given 1 L IV fluid. Repeat lactic acid was 2.3, and troponin 209. INR was subtherapeutic. CTh: soft tissue contusion over the pre-septal left orbit and left maxilla. Patient has been off of his warfarin due to a colonoscopy this past . He was taking lovenox only 40 mg subQ and was supposed to resume warfarin this Wednesday. Outside ED provider gave patient therapeutic dose Lovenox. Patient received Zosyn at the outside hospital and cultures were collected. Dueto elevated troponin patient was transferred to [facility] for further evaluation. Currently, pt complains of spasms of his legs which he gets since his ankle surgery about 1 month. Denies any chest pain, sob, cough, abd pain, LE edema, and dysuria. Review of Systems All pertinent positives and negatives as per HPI above. All remaining systems reviewed and are negative. Physical Exam: General: Well-developed, Well-nourished, and appears to be in no acute distress. Head: normocephalic Eyes: PERRL, EOMI, vision is grossly normal, [...] or hepatosplenomegaly. Skin: No rashes or lesions Neurologic: Alert and Oriented x3, no focal deficits. Sensation grossly normal. Psych: Appropriate mood and affect. Past Medical History: Diagnosis Date ??? Abnormal [...] other complications ??? Weight gain with edema Allergies: No Known Allergies Social History Tobacco Use ??? Smoking status: Former Smoker Quit date: 1980 Years since quittin.4 ??? Smokeless tobacco: Former User Types: Chew Substance Use Topics ??? Alcohol use: Yes Comment: 6 beers per week Social History Social History Narrative ??? Not on file Past Surgical History: Procedure Laterality Date ??? APPENDECTOMY ??? CARDIAC VALVE REPLACEMENT 1999 ??? CARDIAC VALVE REPLACEMENT 2013 ??? CARDIOVERSION EXTERNAL 10/01/2015 ??? CARDIOVERSION EXTERNAL 04/14/2012 ??? COLONOSCOPY N/A 03/18/2021 COLONOSCOPY (Incomplete) performed by Kilo Navarro MD at [facility] OR ??? COLONOSCOPY N/A 01/27/2022 COLONOSCOPY WITH COLD SNARE POLYPECTOMY performed by Kilo Navarro MD at [facility] OR ??? HIP ARTHROPLASTY Left ??? KNEE ARTHROPLASTY Bilateral ??? REPAIR ROTATOR CUFF W/ OR W/O ACROMIOPLASTY Left ??? USE NEMO+CARDIOVERSION 03/24/2016 ??? XA A-FIB ABLATION 10/23/2015 PVI/WACA Family History Problem Relation Name Age of Onset ??? TB Mother No current facility-administered medications on [...] by mouth as needed for Constipation. ??? enoxaparin 40 MG/0.4ML Solution Prefilled Syringe ??? Zccdztbgkyu-Xdzxcmncq-Pbnaso 100-62.5-25 MCG/INH AEROSOL POWDER, BREATH ACTIVATED Inhale [...] Do not break or crush tablet ??? HYDROcodone-acetaminophen 5-325 MG tablet Take 1 tablet by mouth every 6 (six) hours as needed.Indications: Acute Pain < 7 Day Supply ??? hydrOXYzine 50 MG tablet Take 50 [...] mouth 3 (three) times a day. ??? metOLazone 2.5 MG tablet Take 1 tablet (2.5 mg total) by mouth daily. 30 minutes prior to am furosemide (lasix) dose ??? nystatin cream Apply topically as needed. [...] mouth nightly at bedtime. at bedtime ??? warfarin 1 MG tablet As directed ??? warfarin 10 MG tablet Take 5 mg by mouth in the morning. As directed Active Problems: NSTEMI (non-ST elevated myocardial infarction) ([facility] CT(R): MYOCARDIAL INFARCTION Blood pressure (!) 149/87, pulse 87, temperature 98.1 ??F (36.7 ??C), SpO2 93 %. No results for input(s): WBC, HGB, HCT, MCV, PLT, RBC in the last 72 hours. No results for input(s): ALT, AST, CO2, CL, GLU, K, NA, BUN in the last 72 hours. Invalid input(s): ALBUMIN, ALKPHOS, BILITOT, CALCIUM, CREATININE, PROT Microbiology: Microbiology Results (last 14 days) Procedure Component Value Units Date/Time CULTURE, BACTERIA, BLOOD [[id number]] Order Status: Sent Lab Status: No result Specimen: BLOOD CULTURE, BACTERIA, BLOOD [[id number]] Order Status: Sent Lab Status: No result Specimen: BLOOD CULTURE URINE [[id number]] Order Status: No result Lab Status: No result Specimen: URINE, CLEAN CATCH H PYLORI UREASE [[id number]] Collected: 01/27/22920 Order Status: Completed Lab Status: Final result Updated: 01/28/22 1018 Specimen: TISSUE from GASTRIC BIOPSY Spec. Description GASTRIC BIOPSY Special Requests: NO SPECIAL REQUEST DIRECT EXAM PRESUMPTIVE NEGATIVE FOR H. PYLORI PRE-SURGICAL/PRE-PROCEDURE CORONAVIRUS (COVID 19) [[id number]] Collected: 01/24/22911 Order Status: Completed Lab Status: Final result Updated: 01/24/22 1841 Specimen: NASAL Spec. Description NASAL CORONAVIRUS SARS COV 2 PCR (RESP) NEGATIVE Comment: THE SARS-CoV-2 TEST HAS BEEN AUTHORIZED BY THE FDA UNDER AN EUA FOR USE BY AUTHORIZED LABORATORIES. PERFORMED BY NUCLEIC ACID AMPLIFICATION PCR FIRST TEST UNKNOWN EMPLOYED IN HEALTHCARE NO SYMPTOMATIC DEFINED BY CDC UNKNOWN HOSPITALIZATION STATUS NO PATIENT IN ICU NO RESIDENT OF [facility] NO Imaging: XR ANKLE RT M3V Result Date: 01/30/2022 Impression: 1. The lateral malleolar fracture is somewhat less conspicuous likely due to some degree of healing. 2. Persistent soft tissue swelling. 3. Moderate hindfoot and midfoot arthritis. Sizable calcaneal enthesophytes. Ordered By: WHITLEY HAMILTON Interpreted By: Luis Burger Jr, MD, 01/30/2022 8:40 AM XR ANKLE RT M3V Result Date: 01/15/2022 IMPRESSION: Unchanged radiographic appearance of the minimally displaced distal fibular fracture. No significant healing changes noted. Ordered By: WHITLEY HAMILTON Interpreted By: Misael Diaz MD, 01/15/2022 3:09 PM Assessment and Plan: Obie Sims is a 66-year-old male history of CAD, COPD, aortic stenosis s/p MVR in 1999 and Bioprosthetic in 2013, Type 2 DM, A-fib on warfarin, Chronic HFpEF, severe pulm hypertension, hypertension,hyperlipidemia, CKD3(baseline creatinine 1.6- 1.8), CVA (lacunar infarct in nicholas & L. 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 Lab work-up significant for elevated lactate of 5.8-->2.3 w/ 1L IVF, Na 126, BUN 49 w/ Cr 1.8, Trop 125-->209, CK 565, and imaging negative. UA and CXR neg. Given Lovenox therapeutic as INR was subtherapeutic. Fall Lactic Acidosis Leukocytosis -- Suspect lactic acid elevation due to dehydration as evidenced by the elevated BUN to creatinine ratio. No signs of infection were noted. -- Follow blood cultures. We will continue Zosyn for now. Check procalcitonin. Repeat cultures and urine here. NSTEMI CAD --LHC in Aug 2020 w/ proximal LAD 60% stenosis, and ostial RCA 50% stenosis. Manage medically. -- Given therapeutic Lovenox at OSH at 0150. -- Continue to hold warfarin, repeat echo in the morning and consult cardiology. -- Continue aspirin, Coreg, and atorvastatin. Chronic HFpEF Aortic stenosis s/p MVR in 1999 & bioprosthetic valve (2013) Severe pulm hypertension Hypertension Hyperlipidemia --will hold diuretics today, resume in the morning tomorrow. -- Continue amlodipine, and Coreg. will hold losartan Atrial Fibrillation: cont Coreg. Was on bridge w/ lovenox due to recently holding warfarin for colonoscopy. For now hold further warfarin pending cardiology eval. Will start IV heparin in AM. CKD 3: Baseline Cc 1.6-1.8. Cr 1.8 on admission but BUN is elevated 49 was 24 previously on 12/31. IVF overnight, f/u repeat BMP. Diabetes: Hold glipizide. SSI w/ accuchecks ACHS. COPD: Cont home inhalers. CODE STATUS: FULL DVT prophylaxis: Lovenox therapeutic received at 0150 today. Diet: NPO pending cards eval. SEGUNDO MONTANA MD 02/01/2022 Thank you for choosing [facility] hospitalist service. Please call us if any questions or concerns. documented in this encounter Consult Notes * Barney Chase APRN, FLOR-C - 02/01/2022 8:33 AM CDTAssociated Order(s): IP CONSULT TO CARDIOLOGY Images from the original note were not included. Cardiology Consult Note ID: Obie Sims is a 66-year-old male : 1955 PCP: MEGAN INFANTE MD Primary Communications Executive: Dr. Pandey, Dr. Cosby covering CC: Fall, Elevated Troponin HPI: Mr. Sims is a pleasant 66-year-old male with a history of coronary artery disease, paroxysmal atrial fibrillation s/p PVI/WACA per Dr. Block on 10/24/15 and cardioversion in 03/2016, aortic stenosiss/p mechanical valve replacement in 1999 and bioprosthetic valve replacement 2013, LV dysfunction, mild carotid stenosis, hypertension, hyperlipidemia, type II diabetes, and COPD. On 01/31/2022, he tripped and fell, and his head became caught in the chair. He laid on the floor for approximately 3 to 3-1/2 hours before being discovered. He was then taken to [facility]. His imaging studies did not reveal any significant fractures. His chest x-ray revealed cardiomegaly with pulmonary vascular congestion and central infiltrates. Abnormal lab results included WBC 17.8, sodium 126, BUN 49, creatinine 1.84, total CK 565, ESR 37, lactic acid 2.3, proBNP 2278, and high-sensitivity troponins of 125.4 and 208.8. He was transferred to [facility] due to his elevated troponin, and cardiology was consulted. He denies any anginal chest pain, but he does have generalized myalgias from the fall. He tells me that he was on his left side for the duration of his 3 hours, and he is having difficulty sitting still in the bed. He denies any shortness of breath, and tells me that his breathing has been stable prior to his fall. He has severe pulmonary hypertension, and his diuretics were increased in November. Since that time, his lower extremity edema has improved. He denies any paroxysmal nocturnal dyspnea or orthopnea. He uses oxygen at night. He has no palpitations currently, but did notice palpitations when lying on the ground yesterday. He denies any lightheadedness or syncope. However, he has had atleast 2 falls within the past couple months. With both episodes, he states that he tripped. He fractured his ankle on Mother's Day, and subsequently had to wear a boot. He denies signs and symptoms of CVA or TIA. He denies signs of bleeding. Of note, he underwent a colonoscopy on Wednesday, and his warfarin has been held. He tells me that they removed 1 polyp, and he has 4 Lovenox injections left be fore resuming warfarin. His last echocardiogram on 04/18/2021 revealed an LVEF 55% with mild LVH, normal functioning bioprosthetic aortic valve replacement with a peak gradient of 32 mmHg and mean gradient 14 mmHg, and mild tricuspid regurgitation. His last cardiac catheterization on 09/10/2020 revealed patent left main, 60% proximal LAD stenosis,mild circumflex disease, 50% ostial RCA lesion, and severe pulmonary hypertension (75/33 mmHg with a mean of 56 mmHg). A NEMO performed on 10/10/2020 to quantify his mitral valve disease revealed mild mitral regurgitation. Carotid dopplers performed on 11/26/2021 revealed 0 to 39% bilateral ICA stenosis. EKG today reveals atrial fibrillation at a rate of 75 bpm with a left bundle branch block. ASSESSMENT: NSTEMI (non-ST elevated myocardial infarction) ([facility]) Elevated troponin Elevated brain natriuretic peptide (BNP) level Fall PLAN: 1. Elevated Troponin, CAD. His troponins at the outside facility were elevated at 125.4 and 208.8. Continue to trend troponins, and keep n.p.o. for now. Currently he denies any anginal chest pain. His EKG does reveal some widening of his interventricular conduction delay from 134 ms to now 150 ms. 2. Aortic Valve Replacement. Echocardiogram has been ordered. 3. Chronic Diastolic Heart Failure. His proBNP was elevated at 2278, compared to 1617 in November. He appears euvolemic upon exam, denies congestive heart failure symptoms at this time. Home medicationsincluded furosemide 80 mg twice daily. Furosemide is currently on hold given his elevated BUN/creatinine. Chest x-ray did reveal pulmonary vascular congestion. His weight today was at his euvolemic baseline. Continue to monitor fluid status closely. 4. Atrial Fibrillation. He is in atrial fibrillation. His heart rate is reasonably controlled with carvedilol. He is typically anticoagulated with warfarin, but this is on hold due to recent colonoscopy. Please resume warfarin at when safe from a bleeding standpoint. 5. Hypertension. His blood pressure is mildly elevated, but he reports a great deal of discomfort. Continue carvedilol and amlodipine and monitor. Losartan is currently on hold due to renal function. Past Medical History: Diagnosis Date ??? Abnormal [...] (Incomplete) performed by Kilo Navarro MD at [facility] OR ??? COLONOSCOPY N/A 01/27/2022 COLONOSCOPY WITH COLD SNARE POLYPECTOMY performed by Kilo Navarro MD at [facility] OR ??? HIP ARTHROPLASTY Left ??? KNEE ARTHROPLASTY Bilateral ??? REPAIR ROTATOR CUFF W/ OR W/O ACROMIOPLASTY Left ??? USE NEOM+CARDIOVERSION 03/24/2016 ??? XA A-FIB ABLATION 10/23/2015 PVI/WACA [...] MGM ??? MGF ??? PGM ??? PGF No Known Allergies Medications Prior to Admission Medication Sig Dispense Refill ??? albuterol sulfate HFA 108 (90 Base) MCG/ACT inhaler Inhale 1 puff into the lungs every 6 (six) hours as needed. ??? allopurinol 300 MG tablet Take 300 mg by mouth daily. ??? amlodipine 2.5 MG tablet Take 1 tablet (2.5 mg total) by mouth daily. 30 tablet 1 ??? aspirin 81 MG chewable tablet Chew 81 mg by mouth daily. ??? atorvastatin 80 MG tablet Take 80 mg by mouth nightly at bedtime. ??? carvedilol 6.25 MG tablet Take 12.5 mg by mouth 2 (two) times a day. ??? clonazePAM 1 MG tablet Take 1 mg by mouth nightly as needed. ??? enoxaparin 40 MG/0.4ML Solution Prefilled Syringe ??? Bhhhkhrwpvb-Mgvinrwpj-Inumtf 100-62.5-25 MCG/INH AEROSOL POWDER, BREATH ACTIVATED Inhale into the lungs daily. ??? folic acid 1 MG tablet Take 1 mg by mouth daily. ??? furosemide 40 MG tablet Take 2 tablets (80 mg total) by mouth 2 (two) times daily. 30 tablet 0 ??? gabapentin 100 MG capsule 2 tablets in the morning, 4 tablets in the afternoon, and 6 tablets at bedtime ??? glipiZIDE XL 5 MG 24 hr tablet Take 5 mg by mouth daily with breakfast. Do not break or crush tablet ??? HYDROcodone-acetaminophen 5-325 MG tablet Take 1 tablet by mouth every 6 (six) hours as needed.Indications: Acute Pain < 7 Day Supply 20 tablet 0 ??? losartan 50 MG tablet Take 50 mg by mouth daily. ??? metFORMIN 500 MG tablet Take 500 mg by mouth 2 (two) times daily with meals. ??? metoclopramide 10 MG tablet Take 10 mg by mouth 3 (three) times a day. ??? metOLazone 2.5 MG tablet Take 1 tablet (2.5 mg total) by mouth daily. 30 minutes prior to am furosemide (lasix) dose 30 tablet 0 ??? pantoprazole EC 40 MG tablet Take 40 mg by mouth daily. ??? potassium chloride CR 20 MEQ tablet Take 40 mEq by mouth daily. ??? rOPINIRole 2 MG tablet Take 4 mg by mouth nightly. ??? sertraline 50 MG tablet Take 50 mg by mouth daily. ??? trazodone 100 MG tablet Take 200 mg by mouth nightly at bedtime. at bedtime 3 ??? docusate sodium 100 MG capsule Take 100 mg by mouth as needed for Constipation. ??? hydrOXYzine 50 MG tablet Take 50 mg by mouth every 6 (six) hours as needed. ??? Melatonin 10 MG Cap Take 10 mg by mouth nightly as needed. ??? nystatin cream Apply topically as needed. ??? NYSTOP powder ??? warfarin 1 MG tablet As directed ??? warfarin 10 MG tablet Take 5 mg by mouth in the morning. As directed Medications: Scheduled Meds: ??? allopurinol 300 mg Oral Daily ??? amLODIPine 2.5 mg Oral Daily ??? aspirin EC 81 mg Oral Daily ??? atorvastatin 80 mg Oral Daily ??? carvedilol 6.25 mg Oral BID ??? mshttmasffc-annguonotefl-tdnubrvydx 1 puff Inhalation Daily ??? gabapentin 200 mg Oral QAM And ??? gabapentin 400 mg Oral after lunch And ??? gabapentin 600 mg Oral Nightly at bedtime ??? insulin lispro 0-6 Units Subcutaneous 4x Daily AC and at bedtime ??? pantoprazole EC 40 mg Oral Daily ??? rOPINIRole 4 mg Oral nightly ??? sertraline 50 mg Oral Daily ??? traZODone 200 mg Oral Nightly at bedtime Continuous Infusions: ??? lactated ringers PRN Meds: acetaminophen, clonazePAM, HYDROcodone-acetaminophen, ipratropium- albuterol, ondansetron,Senna REVIEW OF SYSTEMS: Constitutional: Denies recent weight gains/losses or fatigue SKIN: Denies presence of rash EYES: Denies recent vision loss/changes ENT: Denies recent hearing loss/changes CARDIOVASCULAR: CV ROS as noted in history of present illness RESPIRATORY: Denies chronic cough, hemoptysis or snoring GI: Denies melena or hematochezia : Denies dysuria MUSCULOSKELETAL: Generalized myalgia ENDOCRINE: Denies intolerance to heat/cold intolerance or excessive hunger/thirst NEUROLOGIC: Denies numbness, tingling, or weakness of extremities HEMATOLOGIC: Denies easy bruising or bleeding OBJECTIVE: Today's Weight: Last Recorded Weight 02/01/22 0554 Weight: 97.5 kg (215 lb) Weight change in the last 24 hours: an appropriate measurement is not found Vital signs in the last 24 hours: Temp: [97.9 ??F (36.6 ??C)-98.1 ??F (36.7 ??C)] 97.9 ??F (36.6 ??C) Pulse: [74-87] 74 Resp: [20] 20 BP: (124-149)/(81-87) 124/81 PHYSICAL EXAM: Cardiac Exam Rate/Rhythm: Normal rate. An irregularly [...] with a grade of 1/6. Edema left: 0. Edema Right: 0. Physical Exam Constitutional: Healthy Appearance. Appears uncomfortable. HENT: Eyes: Pupils equal, round, and reactive to light. Conjunctivae normal. Neck: Neck supple. No JVD. Abdomen: Abdomen soft. Bowel sounds normal. No distension. No tenderness. Abdominal aorta not palpably enlarged. No abdominal bruit present. Pulmonary: Effort normal. Breath sounds normal. Diminished lung sounds in bases, slightly shallow breathing. Skin: Dry. Warm. No rash. No jaundice. No cyanosis. No clubbing. No xanthoma. Scattered ecchymosis and abrasions. Musculoskeletal: No kyphosis. Normal ROM. Tardive dyskinesia. Neurological: Alert. Oriented x 3. Comments: Labs and Cultures: Lab Results Component Value Date NA 142 12/31/2021 K 5.1 12/31/2021 CL 100 12/31/2021 CO2 24 12/31/2021 AGAP 8.2 02/18/2021 BUN 24 12/31/2021 CR 1.85 (A) 12/31/2021 GFRNON 37 12/19/2021 GFRNON 37 12/19/2021 GFR --- 12/19/2021 GLU 145 12/31/2021 CA 9.4 12/31/2021 Lab Results Component Value Date WBC 9.1 10/30/2020 HGB 12.2 (L) 10/30/2020 PLT 236 10/30/2020 Lab Results Component Value Date CHOL 207 03/25/2017 TRI 114 03/25/2017 HDL 97 03/25/2017 TP 8.2 05/05/2019 ALB 3.3 (L) 05/05/2019 ALT 44 05/05/2019 HGBA1C 6.1 06/04/2020 TSH 2.10 09/28/2013 Imaging: XR ANKLE RT M3V Result Date: 01/30/2022 Date: 01/29/2022 3:02 PM Exam: XR ANKLE RT M3V Comparison: Right ankle radiography dated 01/15/2022. Technique: 3 views of the right ankle. History: Follow-up injury in December 2021. Findings: The lateral malleolar fracture is less conspicuous likely due to some degree of healing. The talar dome is normalwithout osteochondral lesion. The hindfoot appears intact. There [...] midfoot arthritis. Sizable calcaneal enthesophytes. Ordered By: WHITLEY HAMILTON Interpreted By: Luis Burger Jr, MD, 01/30/2022 8:40 AM XR ANKLE RT M3V Result Date: 01/15/2022 Examination: XR ANKLE RT M3V Exam time: 01/15/2022 12:51 PM Clinical history: Right ankle pain. Comparison: Radiographs January 13, 2022. Technique: AP, lateral and oblique views. Findings: A minimally displaced fracture is seen involving the distal fibula at the level of the ankle mortise. This appearssimilar to the previous radiographs. No distinct healing periosteal changes are identified at this time. No other fractures are seen. The ankle mortise appears preserved. The talar dome is intact. Nodestructive osseous process identified. Mild soft tissue edema is noted about the ankle. Small calcaneal spur. Vascular calcifications are present. IMPRESSION: Unchanged radiographic appearance of the minimally displaced distal fibular fracture. No significant healing changes noted. Ordered By: WHITLEY HAMILTON Interpreted By: Misael iDaz MD, 01/15/2022 3:09 PM XR CHEST PORTABLE Result Date: 02/01/2022 Examination: Chest Radiograph, 1 view Exam Date/Time: 02/01/2022 6:12 AM Reason For Exam: sepsis Pulmonary hypertension, bilateral carotid disease, sepsis Comparison: 05/14/2016 chest radiograph Technique: Single AP view of the chest. Findings: Prominent cardiac silhouette. Poststernotomy changes. Atherosclerotic aorta. Moderate pulmonary vascular congestion. No large effusion. No pneumothorax. No consolidations. Central infiltrates. ======== IMPRESSION: ======== 1. Cardiomegaly with pulmonary vascular congestion and central infiltrates suspicious for early edema Referred By: ARISTEO DUVALL Interpreted By: Nico Mann MD, 02/01/2022 6:46 AM Results for orders placed or performed during the hospital encounter of 02/01/22 ECG 12 lead Narrative [facility] [place] [address] [place] [address] Test Date: 2022-02-01 Pat Name: OBIE SIMS Department: 1 Room: [facility] Gender: Male Order Manager: Prabha : 1955 Requested By: SEGUNDO MONTANA Order Number: [id number] Reading MD: Armand Cosby Measurements Intervals [place] Rate: 80 P: SD: 0 QRS: -31 QRSD: 150 T: 137 QT: 406 QTc: 469 Interpretive Statements ATRIAL FIBRILLATION LEFT AXIS DEVIATION LEFT BUNDLE BRANCH BLOCK Signed BARNEY CHASE APRN, MANAGER CULINARY-C 02/01/[address] Cosby Cosigned by Armand Cosby MD at 02/01/2022 12:18 PM CDT Associated attestation - Armand Cosby MD - 02/01/2022 12:18 PM CDT I, Armand Cosby MD, personally performed the history, physical examination and medical decisionmaking and provided more than half of the total time dedicated to treatment of this patient. Note as scribed by my MANAGER CULINARY, Barney Chase. Abnormal troponin in this patient with known coronary artery disease. He does not have symptoms suggestive of an acute coronary syndrome. He has chronic shortness of breath. His ECG demonstrates atrial fibrillation with LBBB which is not significantly changed from his prior tracing in 2020. There is no clinical CHF. Given lack of unstable symptoms and renal insufficiency, we will proceed with cardiac catheterization only if the repeat troponin is significantly elevated or myocardial perfusion imaging demonstrates significant ischemia. Vitals: 02/01/22 0840 BP: 124/81 Pulse: 74 Resp: 20 Temp: 97.9 ??F (36.6 ??C) SpO2: 92% General: comfortable in no apparent distress and oriented x 3 Neck: Negative JVD. Lungs: no rales Cardiovascular: Irregularly irregular rhythm, SM @ base Abdomen: Soft, non tender, normal bowel sounds; no organomegaly noted Extremities: No pedal edema Neuro: alert, oriented x 3, grossly non focal PLAN: 1. Continue to hold warfarin and anticoagulate with enoxaparin. 2. Cardiac catheterization only if the repeat troponin is significantly elevated. Otherwise, proceed with pharmacological stress testing with myocardial perfusion imaging. 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 Appointment [facility] [address] [place] [address] Zayra Powell, SUPERVISOR ELECTRIC [address] [place] [address] 10/16/2024 3:30 PM BLACK MILL OPERATOR Office Visit [facility] [address] [place] [id number] Brit Gonzáles MD [address] [place] [address] documented as of this encounter Procedures Procedure Name Priority Date/Time Associated Diagnosis Comments POCT GLUCOSE - VALLECILLO DOCKED DEVICE Routine 02/06/2022 12:32 PM CDT PROTHROMBIN TIME, VENOUS Routine 02/06/2022 8:07 AM CDT POCT GLUCOSE - VALLECILLO DOCKED DEVICE Routine 02/06/2022 6:01 AM CDT POCT GLUCOSE - VALLECILLO DOCKED DEVICE Routine 02/05/2022 8:57 PM CDT POCT GLUCOSE - VALLECILLO DOCKED DEVICE Routine 02/05/2022 4:35 PM CDT POCT GLUCOSE - VALLECILLO DOCKED DEVICE Routine 02/05/2022 11:43 AM CDT POCT GLUCOSE - VALLECILLO DOCKED DEVICE Routine 02/05/2022 6:22 AM CDT PROTHROMBIN TIME, VENOUS Routine 02/05/2022 6:08 AM CDT POCT GLUCOSE - VALLECILLO DOCKED DEVICE Routine 02/04/2022 10:04 PM CDT POCT GLUCOSE - VALLECILLO DOCKED DEVICE Routine 02/04/2022 5:48 PM CDT PROTHROMBIN TIME, VENOUS Routine 02/04/2022 3:11 PM CDT HEPATIC FUNCTION PANEL Routine 02/04/2022 3:11 PM CDT POCT GLUCOSE - VALLECILLO DOCKED DEVICE Routine 02/04/2022 11:06 AM CDT POCT GLUCOSE - VALLECILLO DOCKED DEVICE Routine 02/04/2022 6:44 AM CDT XR CHEST PORTABLE Routine 02/04/2022 5:4 6 AM CDT BASIC METABOLIC PANEL Routine 02/04/2022 4:53 AM CDT CBC W/DIFF AUTOMATED Routine 02/04/2022 4:53 AM CDT MAGNESIUM Routine 02/04/2022 4:53 AM CDT POCT GLUCOSE - VALLECILLO DOCKED DEVICE Routine 02/03/2022 9:31 PM CDT POCT GLUCOSE - VALLECILLO DOCKED DEVICE Routine 02/03/2022 5:02 PM CDT POCT GLUCOSE - VALLECILLO DOCKED DEVICE Routine 02/03/2022 10:50 AM CDT POCT GLUCOSE - VALLECILLO DOCKED DEVICE Routine 02/03/2022 6:07 AM CDT BASIC METABOLIC PANEL Routine 02/03/2022 4:35 AM CDT CBC, AUTO, NO DIFF Routine 02/03/2022 4: 35 AM CDT POCT GLUCOSE - VALLECILLO DOCKED DEVICE Routine 02/02/2022 9:44 PM CDT NM PHARM NUC STRESS TEST 1DAY W TRACING Today 02/02/2022 2:19 PM CDT CARDIOLOGY STRESS TEST ONLY, EXERCISE Routine 02/02/2022 1:35 PM CDT Elevated troponin NSTEMI (non-ST elevated myocardial infarction) ([facility]) POCT GLUCOSE - VALLECILLO DOCKED DEVICE Routine 02/02/2022 11:39 AM CDT BASIC METABOLIC PANEL Routine 02/02/2022 10:23 AM CDT TROPONIN, QUANT Routine 02/02/2022 10:23 AM CDT CK (CPK) Routine 02/02/2022 10:23 AM CDT POCT GLUCOSE - VALLECILLO DOCKED DEVICE Routine 02/02/2022 6:11 AM CDT POCT GLUCOSE - VALLECILLO DOCKED DEVICE Routine 02/01/2022 9:53 PM CDT TROPONIN, QUANT TIMED 02/01/2022 6:06 PM CDT POCT GLUCOSE - VALLECILLO DOCKED DEVICE Routine 02/01/2022 4:53 PM CDT USE ECHOCARDIOGRAM W CON Today 02/01/2022 2:26 PM CDT CULTURE, BACTERIA, BLOOD Routine 02/01/2022 11:40 AM CDT PROCALCITONIN (PCT) Routine 02/01/2022 1 1:27 AM CDT HEMOGLOBIN, GLYCOSYLATED Routine 02/01/2022 11:27 AM CDT PROTHROMBIN TIME, VENOUS Routine 02/01/2022 11:27 AM CDT COMPREHENSIVE METABOLIC PANEL Routine 02/01/2022 11:27 AM CDT LIPID PANEL Routine 02/01/2022 11:27 AM CDT LACTIC ACID Routine 02/01/2022 11:27 AM CDT CULTURE, BACTERIA, BLOOD Routine 02/01/2022 11:27 AM CDT CBC W/DIFF AUTOMATED Routine 02/01/2022 11:27 AM CDT TROPONIN, QUANT TIMED 02/01/2022 11:27 AM CDT TROPONIN, QUANT TIMED 02/01/2022 11:27 AM CDT CK (CPK) Routine 02/01/2022 11:27 AM CDT POCT GLUCOSE - VALLECILLO DOCKED DEVICE Routine 02/01/2022 11:14 AM CDT ECG 12-LEAD STAT 02/01/2022 6:51 AM CDT POCT GLUCOSE - VALLECILLO DOCKED DEVICE Routine 02/01/2022 6:31 AM CDT XR CHEST PORTABLE Today 02/01/2022 6:1 4 AM CDT HC URINALYSIS AUTO W/MICRO Nurse Collected Priority 02/01/2022 6:00 AM CDT URINE BACTERIA CULTURE Nurse Collected Priority 02/01/2022 6:00 AM CDT documented in this encounter Results * (ABNORMAL) POCT glucose (02/06/2022 12:32 PM CDT) GLUCOSE POC 208(H) 70 - 109 02/06/2022 12:33 PM CDT [facility] 02/06/2022 12:3 2 PM CDT us Kate Boston MD POCT ORDERABLES - DEVICE Final R esult Performing Organization Address [facility] Co de Phone Number [facility] [address] [place] [address], [place] [phone] * (ABNORMAL) PROTIME/INR, VENOUS - Daily (02/06/2022 8:07 AM CDT) PROTIME 12.7(H) 9.4 - 12.5 SEC 02/06/2022 9:26 AM CDT [facility] INR 1.1 0.8 - 1.1 02/06/2022 9:26 AM CDT [facility] 02/06/2022 8:07 AM CDT us Kate Boston MD LABORATORY Final Result Performing Organization Address [facility] de Phone Number [facility] [address] [place] [address], [place] [phone] * (ABNORMAL) POCT glucose (02/06/2022 6:01 AM CDT) GLUCOSE POC 212(H) 70 - 109 02/06/2022 6:09 AM CDT [facility] 02/06/2022 6:01 AM CDT us Kate Boston MD POCT ORDERABLES - DEVICE Final R esult Performing Organization Address [facility] Co de Phone Number [facility] [address] [place] [address], [place] [phone] * (ABNORMAL) POCT glucose (02/05/2022 8:57 PM CDT) GLUCOSE POC 236(H) 70 - 109 02/05/2022 9:02 PM CDT [facility] 02/05/2022 8:57 PM CDT us Kate Boston MD POCT ORDERABLES - DEVICE Final R esult Performing Organization Address City/[facility]/ZIP Co de Phone Number [facility] [address] [place] [address], [place] [phone] * (ABNORMAL) POCT glucose (02/05/2022 4:35 PM CDT) GLUCOSE POC 298(H) 70 - 109 02/05/2022 4:44 PM CDT [facility] 02/05/2022 4:35 PM CDT us Kate Boston MD POCT ORDERABLES - DEVICE Final R esult Performing Organization Address [facility] Co de Phone Number [facility] [address] [place] [address], [place] [phone] * (ABNORMAL) POCT glucose (02/05/2022 11:43 AM CDT) GLUCOSE POC 229(H) 70 - 109 02/05/2022 11:57 AM CDT [facility] 02/05/2022 11:4 3 AM CDT us Kate Boston MD POCT ORDERABLES - DEVICE Final R esult Performing Organization Address City/[facility] Co de Phone Number [facility] [address] [place] [address], [place] [phone] * (ABNORMAL) POCT glucose (02/05/2022 6:22 AM CDT) GLUCOSE POC 203(H) 70 - 109 02/05/2022 6:24 AM CDT [facility] 02/05/2022 6:22 AM CDT us Kate Boston MD POCT ORDERABLES - DEVICE Final R esult Performing Organization Address [facility] de Phone Number [facility] [address] [place] [address], [place] [phone] * (ABNORMAL) PROTIME/INR, VENOUS - Daily (02/05/2022 6:08 AM CDT) PROTIME 12.6(H) 9.4 - 12.5 SEC 02/05/2022 6:51 AM CDT [facility] INR 1.1 0.8 - 1.1 02/05/2022 6:51 AM CDT [facility] 02/05/2022 6:08 AM CDT us Kate Boston MD LABORATORY Final Result Performing Organization Address [facility] Phone Number [facility] [address] [place] [address], [place] [phone] * (ABNORMAL) POCT glucose (02/04/2022 10:04 PM CDT) GLUCOSE POC 235(H) 70 - 109 02/04/2022 10:39 PM CDT [facility] 02/04/2022 10:0 4 PM CDT us Kate Boston MD POCT ORDERABLES - DEVICE Final R esult Performing Organization Address [facility] de Phone Number [facility] [address] [place] [address], [place] [phone] * (ABNORMAL) POCT glucose (02/04/2022 5:48 PM CDT) GLUCOSE POC 206(H) 70 - 109 02/04/2022 6:06 PM CDT [facility] 02/04/2022 5:48 PM CDT Kate Boston MD POCT ORDERABLES - DEVICE Final R esult Performing Organization Address [facility] de Phone Number [facility] [address] [place] [address], [phone] * (ABNORMAL) PROTIME/INR, VENOUS (02/04/2022 3:11 PM CDT) Pathologist [facility] PROTIME 13.2(H) 9.4 - 12.5 SEC 02/04/2022 3:45 PM CDT [facility] INR 1.2(H) 0.8 - 1.1 02/04/2022 3:45 PM CDT [facility] 02/04/2022 3:11 PM CDT us Kate Boston MD LABORATORY Final Result Performing Organization Address [facility] de Phone Number [facility] [address] [place] [address], [phone] * (ABNORMAL) HEPATIC FUNCTION PANEL (02/04/2022 3:11 PM CDT) BILIRUBIN TOTAL S/P/B 0.9 0.2 - 1.0 MG/DL 02/04/2022 4:38 PM CDT [facility] BILIRUBIN DIRECT S/P/B 0.3(H) 0.0 - 0.2 MG/DL 02/04/2022 4:38 PM CDT [facility] ALKALINE PHOSPHATASE S/P/B 108 45 - 115 U/L 02/04/2022 4:38 PM CDT [facility] AST 34 15 - 37 U/L 02/04/2022 4:38 PM CDT [facility] ALT 38 16 - 61 U/L 02/04/2022 4:38 PM CDT [facility] TOTAL PROTEIN S/P/B 7.2 6.4 - 8.2 G/DL 02/04/2022 4:38 PM CDT [facility] ALBUMIN S/P/B 3.2(L) 3.4 - 5.0 G/DL 02/04/2022 4:38 PM CDT [facility] 02/04/2022 3:11 PM CDT us Kate Bsoton MD LABORATORY Final Result Performing Organization Address [facility] de Phone Number [facility] [address] [place] [address], [phone] * (ABNORMAL) POCT glucose (02/04/2022 11:06 AM CDT) GLUCOSE POC 254(H) 70 - 109 02/04/2022 11:25 AM CDT [facility] 02/04/2022 11:0 6 AM CDT us Kate Boston MD POCT ORDERABLES - DEVICE Final R esult Performing Organization Address [facility] Co de Phone Number [facility] [address] [place] [address], [phone] * (ABNORMAL) POCT glucose (02/04/2022 6:44 AM CDT) GLUCOSE POC 182(H) 70 - 109 02/04/2022 6:50 AM CDT [facility] 02/04/2022 6:44 AM CDT Kate Boston MD POCT ORDERABLES - DEVICE Final R esult [facility] [address] [place] [address], [place] [phone] * XR CHEST PORTABLE (02/04/2022 5:46 AM CDT) Anatomical Region Laterality Modality Chest Radiographic Stephie ging 02/04/2022 6:39 AM CDT Impressions 02/04/2022 6:40 AM CDT IMPRESSION: Stable cardiomegaly and mild pulmonary vascular congestion. Referred By: ARISTEO DUVALL Interpreted By: Regulo Campo MD, 02/04/2022 6:39 AM Narrative 02/04/2022 6:40 AM CDT Examination: XR CHEST PORTABLE Exam time: 02/04/2022 5:43 AM Indication: Congestive heart failure. Comparison: 02/01/2022. Technique: Portable AP view of the chest. Findings: Stable median sternotomy wires, ostial markers, and valve prosthesis. ??Stable cardiomegaly with pulmonary vascular congestion. ??No thorax or large pleural effusion. ??No focal consolidation. ??No acute osseous abnormality. Procedure Note Regulo Campo MD - 02/04/2022 Examination: XR CHEST PORTABLE Exam time: 02/04/2022 5:43 AM Indication: Congestive heart failure. Comparison: 02/01/2022. Technique: Portable AP view of the chest. Findings: Stable median sternotomy wires, ostial markers, and valveprosthesis. Stable cardiomegaly with pulmonary vascular congestion. Nothorax or large pleural effusion. No focal consolidation. No acuteosseous abnormality. IMPRESSION: Stable cardiomegaly and mild pulmonary vascular congestion. Referred By: ARISTEO DUVALL Interpreted By: Regulo Campo MD, 02/04/2022 6:39 AM Kate Boston MD GENERAL IMAGING Final Result * (ABNORMAL) CBC W/DIFF AUTOMATED (02/04/2022 4:53 AM CDT) WBC 9.6 4.0 - 10.8 x10'3/uL 02/04/2022 5:32 AM CDT [facility] RBC 3.59(L) 4.50 - 6.10 x10'6/uL 02/04/2022 5:32 AM CDT [facility] HGB 10.1(L) 13.0 - 18.0 G/DL 02/04/2022 5:32 AM CDT [facility] HCT 31.9(L) 37.0 - 52.0 % 02/04/2022 5:32 AM CDT [facility] MCV 88.9 78.0 - 100.0 FL 02/04/2022 5:32 AM CDT [facility] MCH 28.1 27.0 - 31.0 PG 02/04/2022 5:32 AM CDT [facility] MCHC 31.7(L) 33.0 - 36.0 G/DL 02/04/2022 5:32 AM CDT [facility] RDW 15.3(H) 11.5 - 14.5 % 02/04/2022 5:32 AM CDT [facility] PLT 143(L) 150 - 350 x10'3/uL 02/04/2022 5:32 AM CDT [facility] MPV 11.2(H) 7.4 - 10.4 FL 02/04/2022 5:32 AM CDT [facility] ABS. NEUTROPHILS 6.27 1.60 - 8.30 x10'3/uL 02/04/2022 5:32 AM CDT [facility] ABS. LYMPHOCYTES 1.95 0.80 - 4.70 x10'3/uL 02/04/2022 5:32 AM CDT [facility] ABS. MONOCYTES 1.15 0.00 - 1.50 x10'3/uL 02/04/2022 5:32 AM CDT [facility] ABS. EOSINOPHILS 0.14 0.00 - 0.40 x10'3/uL 02/04/2022 5:32 AM CDT [facility] ABS. BASOPHILS 0.03 0.00 - 0.20 x10'3/uL 02/04/2022 5:32 AM CDT [facility] ABS. IMMATURE GRANULOCYTES 0.05(H) 0.00 - 0.03 x10'3/uL 02/04/2022 5:32 AM CDT [facility] ABS. NUCLEATED RBC'S 0.00 0.0 x10'3/uL 02/04/2022 5:32 AM CDT [facility] 02/04/2022 4:53 AM CDT Kate Boston MD LABORATORY Final Result Performing Organization Address City/[facility]/ZIP Co de Phone Number [facility] [address] [place] [address], [phone] * MAGNESIUM (02/04/2022 4:53 AM CDT) MAGNESIUM 1.8 1.6 - 2.6 MG/DL 02/04/2022 5:50 AM CDT [facility] 02/04/2022 4:53 AM CDT us Kate Boston MD LABORATORY Final Result Performing Organization Address City/[facility]/ZIP Co de Phone Number [facility] [address] [place] [address], [phone] * (ABNORMAL) BASIC METABOLIC PANEL (02/04/2022 4:53 AM CDT) SODIUM S/P/B 136 136 - 145 MMOL/L 02/04/2022 5:50 AM CDT [facility] POTASSIUM S/P/B 3.8 3.5 - 5.1 MMOL/L 02/04/2022 5:50 AM CDT [facility] CHLORIDE S/P/B 99 98 - 107 MMOL/L 02/04/2022 5:50 AM CDT [facility] CO2 31.3 21.0 - 32.0 MMOL/L 02/04/2022 5:50 AM CDT [facility] GLUCOSE 187(H) 74 - 106 MG/DL 02/04/2022 5:50 AM CDT [facility] BUN 30(H) 7 - 18 MG/DL 02/04/2022 5:50 AM CDT [facility] CREATININE S/P/B 1.28 0.70 - 1.30 MG/DL 02/04/2022 5:50 AM CDT [facility] CALCIUM S/P/B 9.1 8.5 - 10.1 MG/DL 02/04/2022 5:50 AM CDT [facility] ANION GAP 5.7 5.0 - 15.0 MMOL/L 02/04/2022 5:50 AM T [facility] OSMOLALITY (CALC) 293 MOSM/KG 022 5:50 AM CDT [facility] Comment:REFERENCE RANGE NOT ESTABLISHED GFR ESTIMATE 61(L) >90 ML/MIN/1. 73 M2 02/04/2022 5:50 AM CDT [facility] GFR NOTES GFR REFERENCE S: 02/04/2022 5:50 AM T [facility] Comment: THE ESTIMATED GFR IS CALCULATED [...] ml/min/1.73 m2 G5,KIDNEY FAILURE: <15 ml/min/1.73 m2 02/04/2022 4:53 AM CDT us Kate Boston MD LABORATORY Final Result Performing Organization Address [facility] Co de Phone Number [facility] [address] [place] [address], [place] [phone] * (ABNORMAL) POCT glucose (02/03/2022 9:31 PM CDT) GLUCOSE POC 274(H) 70 - 109 02/03/2022 9:46 PM CDT [facility] 02/03/2022 9:31 PM CDT us Kate Boston MD POCT ORDERABLES - DEVICE Final R esult Performing Organization Address [facility] de Phone Number [facility] [address] [place] [address], [place] [phone] * (ABNORMAL) POCT glucose (02/03/2022 5:02 PM CDT) GLUCOSE POC 188(H) 70 - 109 02/03/2022 5:16 PM CDT [facility] 02/03/2022 5:02 PM CDT us Kate Boston MD POCT ORDERABLES - DEVICE Final R esult Performing Organization Address [facility] Co de Phone Number [facility] [address] [place] [address], [place] [phone] * (ABNORMAL) POCT glucose (02/03/2022 10:50 AM CDT) GLUCOSE POC 227(H) 70 - 109 02/03/2022 11:20 AM CDT [facility] 02/03/2022 10:5 0 AM CDT us Kate Boston MD POCT ORDERABLES - DEVICE Final R esult Performing Organization Address [facility] Co de Phone Number [facility] [address] [place] [address], [place] [phone] * (ABNORMAL) POCT glucose (02/03/2022 6:07 AM CDT) GLUCOSE POC 207(H) 70 - 109 02/03/2022 6:09 AM CDT [facility] 02/03/2022 6:07 AM CDT us Kate Boston MD POCT ORDERABLES - DEVICE Final R esult Performing Organization Address [facility] de Phone Number [facility] [address] [place] [address], [place] [phone] * (ABNORMAL) CBC, AUTO, NO DIFF (02/03/2022 4:35 AM CDT) WBC 10.7 4.0 - 10.8 x10'3/uL 02/03/2022 4:57 AM CDT [facility] RBC 3.67(L) 4.50 - 6.10 x10'6/uL 02/03/2022 4:57 AM CDT [facility] HGB 10.4(L) 13.0 - 18.0 G/DL 02/03/2022 4:57 AM CDT [facility] HCT 32.0(L) 37.0 - 52.0 % 02/03/2022 4:57 AM CDT [facility] MCV 87.2 78.0 - 100.0 FL 02/03/2022 4:57 AM CDT [facility] MCH 28.3 27.0 - 31.0 PG 02/03/2022 4:57 AM CDT [facility] MCHC 32.5(L) 33.0 - 36.0 G/DL 02/03/2022 4:57 AM CDT [facility] RDW 15.2(H) 11.5 - 14.5 % 02/03/2022 4:57 AM CDT [facility] PLT PLATELET CLUMPS PRESENT. ESTIMATE FROM SLIDE APPEARS TO BE WITHIN NORMAL RANGE 150 - 350 x10'3/uL 02/03/2022 5:24 AM CDT [facility] Comment:REORDER PLATELET COU NT IF ACTUAL VALUE IS CLINICALLY SIGNIFICANT MPV UNABLE TO PERFORM TEST 7.4 - 10.4 FL 02/03/2022 5:24 AM CDT [facility] 02/03/2022 4:35 AM CDT us Kate Boston MD LABORATORY Final Result [facility] [address] [place] [address], [id number] * (ABNORMAL) BASIC METABOLIC PANEL (02/03/2022 4:35 AM CDT) SODIUM S/P/B 136 136 - 145 MMOL/L 02/03/2022 5:06 AM CDT [facility] POTASSIUM S/P/B 3.3(L) 3.5 - 5.1 MMOL/L 02/03/2022 5:06 AM CDT [facility] CHLORIDE S/P/B 99 98 - 107 MMOL/L 02/03/2022 5:06 AM CDT [facility] CO2 31.0 21.0 - 32.0 MMOL/L 02/03/2022 5:06 AM CDT [facility] GLUCOSE 193(H) 74 - 106 MG/DL 02/03/2022 5:06 AM CDT [facility] BUN 29(H) 7 - 18 MG/DL 02/03/2022 5:06 AM CDT [facility] CREATININE S/P/B 1.34(H) 0.70 - 1.30 MG/DL 02/03/2022 5:06 AM CDT [facility] CALCIUM S/P/B 9.2 8.5 - 10.1 MG/DL 02/03/2022 5:06 AM CDT [facility] ANION GAP 6.0 5.0 - 15.0 MMOL/L 02/03/2022 5:06 AM CDT [facility] OSMOLALITY (CALC) 293 MOSM/KG 022 5:06 AM T [facility] Comment:REFERENCE RANGE NOT ESTABLISHED GFR ESTIMATE 58(L) >90 ML/MIN/1. 73 M2 02/03/2022 5:06 AM CDT [facility] GFR NOTES GFR REFERENCE S: 02/03/2022 5:06 AM T [facility] Comment: THE ESTIMATED GFR IS CALCULATED [...] ml/min/1.73 m2 G5,KIDNEY FAILURE: <15 ml/min/1.73 m2 02/03/2022 4:35 AM CDT us Kate Boston MD LABORATORY Final Result [facility] [address] [place], [place] [address] [phone] * (ABNORMAL) POCT glucose (02/02/2022 9:44 PM CDT) GLUCOSE POC 237(H) 70 - 109 02/02/2022 9:46 PM CDT [facility] 02/02/2022 9:44 PM CDT Kate Boston MD POCT ORDERABLES - DEVICE Final R esult Performing Organization Address [facility]/State/[facility] Co de Phone Number [facility] [address] [place] [address], [phone] * NM PHARM NUC STRESS TEST 1DAY (02/02/2022 2:19 PM CDT) Anatomical Region Laterality Modality Cardiac Nuclear Medicine 02/02/2022 7:15 AM CDT Narrative 02/02/2022 4:34 PM CDT ?MYOCARDIAL PERFUSION SCAN Pat.Name: ??OBIE SIMS ?Pat.ID: ?[id number] ? St.Date: ?? 02/02/2022 ? Refer.: ??ARMAND COSBY ? Exam Time: 7:15:00 AM ? Study Type:NC Ht Muscle Image SPECT Multi Nuclear Height: ?66in ?Weight: ?214.5lb ? BSA: ? 2.06 m2 ?Age: ??1955,66Y ? Sex: ? MALE ?Sonogrphr: Megan Singleton, NETWORK SUPPORT MANAGER ? Pat. Stat.:Inpatient ? Room: ?510 ? Reason for Study:Chest pain/ anginal equivalent, ECGs or troponins abnormal Procedures: Regadenoson Stress, Stress Gated SPECT, Rest SPECT, Patient unable to lay prone for imaging. Race: ?W ? Risk Factors:Anxiety, Artic valve stenosis, Arthritis, Asthma, mild persistent, Atrial fibrillation s/p PVI/[facility] 10/2015, Carotid disease, CHF, COPD, CAD, DMII, Edema +2 pitting edema, Blood transfusion, HLD, HTN, LV dysfunction, Osteoarthritis, PAD, Pneumonia, Restless leg syndrome, S/P aortic valve replacement with bioprosthetic valve, SOB, Stroke, Varicose veins bilateral lower extremeties, Knee arthroplasty, Repair rotator cuff Medications:Albuteral HFA, Allopurinol, Amlodipine, Aspirin, Atorvastatin, Carvedilol, Clonazepam, Enoxaparin, Fluticasone, Folic acid, Furosemide, Gabapentin, Glipizide XL, Hydrocodone-acetaminophen, Losartan, Metformin, Metoclopramide, Metolazone, Pantoprazole, Potassium chloride CR, Ropinirole, Sertraline, Trazodone, Docusate sodium, Hydroxyzine, Melatonin, Warfarin ++++++++++++++++++++++++++++++++++++ SUMMARY: ++++++++++++++++++++++++++++++++++++ Mildly Abnormal Perfusion Study. There is evidence of a medium area of mild to moderate intensity fixed defect consistent with infarction or attenuation in the inferior and basal inferolateral knox. The heart size is normal. No abnormal wall motion observed. Left ventricular EF is 51 %. Nondiagnostic electrocardiographic portion of regadenoson stress test due to LBBB pattern. ++++++++++++++++++++++++++++++++++++ FINDINGS: ++++++++++++++++++++++++++++++++++++ Stress Findings: Nondiagnostic electrocardiographic portion of ?regadenoson stress test due to LBBB pattern. The ?patient had no complaints of chest pain. Impr: ? Mildly Abnormal Perfusion Study. There is evidence of a ?medium area of mild to moderate intensity fixed defect ?consistent with infarction or attenuation in the inferior ?and basal inferolateral knox. Hrt size: The heart size is normal. WM: ? No abnormal wall motion observed. Transient Ischemic Dilatation: The TID is 1.09. LV Perfusion Results: There is a moderate basal inferior perfusion ?defect during stress and rest.There is a mild basal ?inferolateral, mid inferior, apical inferior perfusion ?defect during stress which worsens with rest.There is a mild ?mid inferolateral perfusion defect during stress ?and rest. Gated SPECT Results: Left ventricular EF is 51 %. There is post stress ?normal wall motion in all knox. Study Quality/Artifacts: The study quality is good. ++++++++++++++++++++++++++++++++++++ STRESS: ++++++++++++++++++++++++++++++++++++ Baseline Vital Signs: ?Intervention ??Regadenoson Baseline ECG LBBB ?Peak Dose ??0.4 mg Rest HR ?79 ?Atropine Administered: 0 Rest BP ?118/80 ?Duration ?? 06:00 Baseline Rhythm Atrial fibrillation Stress Test Results: Pred. Max. Heart Rate (100%) 153 ?? Max ST: ?0 mm Symptoms and Complications: Arrhythmias Multifocal PVCs Reason for Stopping Test: Protocol completed Stress Induced Symptoms: Shortness of breath ECG Findings: ??The S-T segment changes of LBBB are present, therefore, S-T change with stress are of uncertain significance Signed 02/02/2022 04:34 PM Armand Cosby M.D. Procedure Note Armnad Cosby MD - 02/02/2022 MYOCARDIAL PERFUSION SCAN Pat.Name: BETHANY OBIE Good Pat.ID: [id number] .Date: 02/02/2022 Refer.MD: ARMAND COSBY Exam Time: 7:15:00 AM Study Type:NC Ht Muscle Image SPECT Multi Nuclear Height: 66in Weight: 214.5lb BSA: 2.06 m2 Age: 12 1955,66Y Sex: MALE Sonogrphr: Megan Singleton [facility] Pat. Stat.:Inpatient Room: 510 Reason for Study:Chest pain/ anginal equivalent, ECGs or troponins abnormal Procedures: Regadenoson Stress, Stress Gated SPECT, Rest SPECT, Patient unable to lay prone for imaging. Race: W Risk Factors:Anxiety, Artic valve stenosis, Arthritis, Asthma, mild persistent, Atrial fibrillation s/p PVI/[facility] 10/2015, Carotid disease, CHF, COPD, CAD, DMII, Edema +2 pitting edema, Blood transfusion, HLD, HTN, LV dysfunction, Osteoarthritis, PAD, Pneumonia, Restless leg syndrome, S/P aortic valve replacement with bioprosthetic valve, SOB, Stroke, Varicose veins bilateral lower extremeties, Knee arthroplasty, Repair rotator cuff Medications:Albuteral HFA, Allopurinol, Amlodipine, Aspirin, Atorvastatin, Carvedilol, Clonazepam, Enoxaparin, Fluticasone, Folic acid, Furosemide, Gabapentin, Glipizide XL, Hydrocodone-acetaminophen, Losartan, Metformin, Metoclopramide, Metolazone, Pantoprazole, Potassium chloride CR, Ropinirole, Sertraline, Trazodone, Docusate sodium, Hydroxyzine, Melatonin, Warfarin ++++++++++++++++++++++++++++++++++++ SUMMARY: ++++++++++++++++++++++++++++++++++++ Mildly Abnormal Perfusion Study. There is evidence of a medium area of mild to moderate intensity fixed defect consistent with infarction or attenuation in the inferior and basal inferolateral knox. The heart size is normal. No abnormal wall motion observed. Left ventricular EF is 51 %. Nondiagnostic electrocardiographic portion of regadenoson stress test due to LBBB pattern. ++++++++++++++++++++++++++++++++++++ FINDINGS: ++++++++++++++++++++++++++++++++++++ Stress Findings: Nondiagnostic electrocardiographic portion of regadenoson stress test due to LBBB pattern. The patient had no complaints of chest pain. Impr: Mildly Abnormal Perfusion Study. There is evidence of a medium area of mild to moderate intensity fixed defect consistent with infarction or attenuation in the inferior and basal inferolateral knox. Hrt size: The heart size is normal. WM: No abnormal wall motion observed. Transient Ischemic Dilatation: The TID is 1.09. LV Perfusion Results: There is a moderate basal inferior perfusion defect during stress and rest.There is a mild basal inferolateral, mid inferior, apical inferior perfusion defect during stress which worsens with rest.There is a mild mid inferolateral perfusion defect during stress and rest. Gated SPECT Results: Left ventricular EF is 51 %. There is post stress normal wall motion in all kn[place]. Study Quality/Artifacts: The study quality is good. ++++++++++++++++++++++++++++++++++++ STRESS: ++++++++++++++++++++++++++++++++++++ Baseline Vital Signs: Intervention Regadenoson Baseline ECG LBBB Peak Dose 0.4 mg Rest HR 79 Atropine Administered: 0 Rest BP 118/80 Duration 06:00 Baseline Rhythm Atrial fibrillation Stress Test Results: Pred. Max. Heart Rate (100%) [address]: 0 mm Symptoms and Complications: Arrhythmias Multifocal PVCs Reason for Stopping Test: Protocol completed Stress Induced Symptoms: Shortness of breath ECG Findings: The S-T segment changes of LBBB are present, therefore, S-T change with stress are of uncertain significance Signed 02/02/2022 04:34 PM Armand Cosby M.D. Armand Cosby MD [facility] Final Result * (ABNORMAL) POCT glucose (02/02/2022 11:39 AM CDT) GLUCOSE POC 195(H) 70 - 109 02/02/2022 11:57 AM CDT [facility] 02/02/2022 11:3 9 AM CDT us Kate Boston MD POCT ORDERABLES - DEVICE Final R esult Performing Organization Address [facility] de Phone Number [facility] [address] [place] [address], [place] [phone] * (ABNORMAL) TROPONIN, QUANT (02/02/2022 10:23 AM CDT) TROPONIN I HIGH SENSITIVITY 104(H) 0 - 78 ng/L 02/02/2022 11:48 AM CDT [facility] 02/02/2022 10:2 3 AM CDT us Kate Boston MD LABORATORY Final Result Performing Organization Address [facility] de Phone Number [facility] [address] [place] [address], [place] [phone] * (ABNORMAL) CK (CPK) (02/02/2022 10:23 AM CDT) CPK 806(H) 39 - 308 U/L 02/02/2022 11:48 AM CDT [facility] 02/02/2022 10:2 3 AM CDT us Kate Boston MD LABORATORY Final Result Performing Organization Address [facility] de Phone Number [facility] [address] [place] [address], [place] [phone] * (ABNORMAL) BASIC METABOLIC PANEL (02/02/2022 10:23 AM CDT) SODIUM S/P/B 135(L) 136 - 145 MMOL/L 02/02/2022 11:48 AM CDT [facility] POTASSIUM S/P/B 3.5 3.5 - 5.1 MMOL/L 02/02/2022 11:48 AM CDT [facility] CHLORIDE S/P/B 98 98 - 107 MMOL/L 02/02/2022 11:48 AM T [facility] CO2 28.2 21.0 - 32.0 MMOL/L 02/02/2022 11:48 AM T [facility] GLUCOSE 182(H) 74 - 106 MG/DL 02/02/2022 11:48 AM T [facility] BUN 33(H) 7 - 18 MG/DL 02/02/2022 11:48 AM T [facility] CREATININE S/P/B 1.46(H) 0.70 - 1.30 MG/DL 02/02/2022 11:48 AM T [facility] CALCIUM S/P/B 9.7 8.5 - 10.1 MG/DL 02/02/2022 11:48 AM [facility] ANION GAP 8.8 5.0 - 15.0 MMOL/L 02/02/2022 11:48 AM [facility] OSMOLALITY (CALC) 292 MOSM/KG 022 11:48 AM [facility] Comment:REFERENCE RANGE NOT ESTABLISHED GFR ESTIMATE 52(L) >90 ML/MIN/1. 73 M2 02/02/2022 11:48 AM [facility] GFR NOTES GFR REFERENCE S: 02/02/2022 11:48 AM [facility] Comment: THE ESTIMATED GFR IS [...] ml/min/1.73 m2 G5,KIDNEY FAILURE: <15 ml/min/1.73 m2 02/02/2022 10:2 3 AM CDT us Kate Boston MD LABORATORY Final Result Performing Organization Address [facility] de Phone Number [facility] [address] [place] [address], [place] [phone] * (ABNORMAL) POCT glucose (02/02/2022 6:11 AM CDT) GLUCOSE POC 191(H) 70 - 109 02/02/2022 6:22 AM CDT [facility] 02/02/2022 6:11 AM CDT us Saroj Rodriges MD POCT ORDERABLES - DEVICE Fin al Result Performing Organization Address [facility] de Phone Number [facility] [address] [place] [address], [phone] * (ABNORMAL) POCT glucose (02/01/2022 9:53 PM CDT) GLUCOSE POC 158(H) 70 - 109 02/01/2022 10:29 PM CDT [facility] 02/01/2022 9:53 PM CDT us Saroj Rodriges MD POCT ORDERABLES - DEVICE Fin al Result Performing Organization Address [facility] de Phone Number [facility] [address] [place] [address], [place] [phone] * (ABNORMAL) TROPONIN, QUANT (02/01/2022 6:06 PM CDT) TROPONIN I HIGH SENSITIVITY 197(H) 0 - 78 ng/L 02/01/2022 6:47 PM CDT [facility] 02/01/2022 6:06 PM CDT Segundo Montana MD LABORATORY Final Result Performing Organization Address [facility] de Phone Number [facility] [address] [place] [address], [id number] * (ABNORMAL) POCT glucose (02/01/2022 4:53 PM CDT) GLUCOSE POC 231(H) 70 - 109 02/01/2022 5:02 PM CDT [facility] 02/01/2022 4:53 PM CDT Saroj Rodriges MD POCT ORDERABLES - DEVICE Fin al Result Performing Organization Address [facility] de Phone Number [facility] [address] [place] [address], [phone] * USE ECHOCARDIOGRAM W CON (02/01/2022 2:26 PM CDT) Anatomical Region Laterality Modality NA Echocardiogram 02/01/2022 2:01 PM CDT Narrative 02/01/2022 5:26 PM CDT ?Echocardiography Report Pat.Name: ??OBIE SIMS ?Pat.ID: ?[id number] ? St.Date: ?? 02/01/2022 ? Refer.MD: ??[id number] DUVALLNkechi ALBERTS NABIH ? EWDPROV ?EWDPROV Exam Time: 2:01:00 PM ?Study Type:ECHO W/CONTRAST COMPLETE Height: ?66.14in ? Weight: ?215.6lb ? BSA: ? 2.07 m2 ?Age: ??1955,66Y ? Sex: ? MALE ?BP: ?124/81 ? Sonogrphr: Keegan Carlin RDCS ?Pat. Stat.:Inpatient ? Room: ?510 ? CPT - 4: ?C8929 ? Reason for Study:NSTEMI ? History / Clinical:Shortness of breath, dyspnea Procedures: 2D, M-mode, Doppler, Color Flow, Definity was used to enhance endocardial definition., Portable Race: ?W ? ++++++++++++++++++++++++++++++++++++ SUMMARY: ++++++++++++++++++++++++++++++++++++ The left ventricular size is normal. The left ventricular systolic function is normal. The calculated ejection fraction is 54%. Wall motion appears normal in all segments. Right ventricular systolic function is depressed. Right ventricular systolic pressure is 34+RAP mmHg. The peak velocity across the aortic biobrosthetic valve measures 2.88m/sec with a peak gradient of 33mmHg and a mean gradient of 21mmHg. The calculated aortic valve area is 1.14cm2. ++++++++++++++++++++++++++++++++++++ FINDINGS: ++++++++++++++++++++++++++++++++++++ LV: ? The left ventricular size is normal. The left ventricular ?systolic function is normal. The calculated ejection ?fraction is 54%. Mild asymmetrical left ventricular ?hypertrophy. The septal E/e' is elevated at >15. The lateral ?E/e' is elevated at >11. Left ventricular diastolic function ?is abnormal. WM: ? Wall motion appears normal in all segments. LVOT: ? The left ventricular outflow tract size is normal. RV: ? The right ventricular size is mildly enlarged. Right ?ventricular systolic function is depressed. Right ?ventricular systolic pressure is 34+RAP mmHg. TAPSE = 11.2mm ?(<16 mm indicates systolic RV dysfunction). LA: ? The left atrial volume is severely increased (>48 ml/M2). RA: ? Right atrial size is dilated. ANYA: ? No evidence of pericardial effusion. AO: ? Aortic root is not dilated. PA: ? Unable to reliably quantitate pulmonary systolic pressure. PVn: ?The pulmonary vein doppler wave form is blunted suggestive ?of elevated left atrial pressures. SVn: ?Inferior vena cava is not assessable. AV: ? The peak velocity across the aortic biobrosthetic valve ?measures 2.88m/sec with a peak gradient of 33mmHg and a mean ?gradient of 21mmHg. The calculated aortic valve area is ?1.14cm2. No evidence of anya-prosthetic aortic valve ?regurgitation. No evidence of central prosthetic aortic ?valve regurgitation. Dimensionless index of 0.4. The aortic ?valve acceleration time is 91ms. The LVOT stroke volume ?index is 27ml/m2. MV: ? Trace mitral regurgitation. Trivial degree of mitral valve ?stenosis. Heavily calcified anterior and posterior mitral ?annulus. Moderate thickening of mitral valve leaflets. The ?mean gradient across the mitral valve is 3mmHg at a heart ?rate of 79bpm. PV: ? The pulmonic valve is normal There is trace pulmonic ?regurgitation TV: ? Doppler assessment inadequate to accurately assess the ?degree of tricuspid regurgitation. No evidence of tricuspid ?valve stenosis. ++++++++++++++++++++++++++++++++++++ MEASUREMENTS: ++++++++++++++++++++++++++++++++++++ ?DOPPLER LVOT ?? LVOTpkPG ? 4 mmHg ?LVOTmnPG ? 2 mmHg LVOTpkVel ?102 cm/s (70-110)+ LVOT SV ? 58 ml ?? LVOT TVI ?18.6 cm ?LVOT CO ? 90 ml/s AV Forward Flow AV TVI ?51.2 cm ?AV pkPG ? 33 mmHg AV pkVel ? 288 cm/s (100-170)+* Area (TVI) ?1.14 cm2 ??(3-5)* AV mnVel ? 214 cm/s ?Area (Wilbert) ?1.11 cm2 ??(3-5)* AV mnPG ? 21 mmHg ? MV Forward Flow MV DeTm ?204 ms ?MV mnPG ?3 mmHg MVA P1/2t ? 2.16 cm2 ??(4-6)* ?? MV pkPG ?7 mmHg MV P1/2t ? 102 ms ?? (30-60)+* MV pkE ?86.9 cm/s (60-130)+ TV Regurg Flow TV pkPG ? 34 mmHg ? TV pkVel ? 293 cm/s (30-70)+* Lat E' ?? Lat e ? 7.28 cm/s ? Lat E/E' ?? Lat E/e ? 11.9 ? Med E' ?? Med e ? 4.65 cm/s ? Med E/E' ?? Med E/e ? 18.7 ? Aortic Valve ?? Aortic Valve Ar ??0.55 ?Aortic Valve Ve ??0.35 ? AV DI ?? Value ?0.4 ? EMILE (VTI) Index ?? Value ? 0.55 ? AV Antegrade Flow AC ?91 ms ?Acceleration Sl ??3236 cm/s2 LV Mass 2D ?? Value ?203 g ? LV Mass [id number] ?? Value ? 98.1 g/m2 ? Right Ventricle ?? Right Ventricle ??7.35 cm/s ?2D Left Ventricle ?? LVIDd ? 4.18 cm ?? (3.6-5.2) LV EF(Bi-Plane) ?54 % ?(63-77)* LVIDs ? 2.96 cm ?? (2.3-3.9) LVPW ?? LVPWd ? 1.26 cm ? Ventricular Septum ?? IVSd ?1.37 cm ? Aorta ?? Ao Asc ? 2.9 cm ?? (zsc 1.2) LVOT ?? LVOT ? 2 cm ? Ratios ?? IVS LA Biplane LAVol I BP ?50.7 ml/m2 ?MMODE TA ?? Tricuspid Annul ??1.12 cm ? Signed 02/01/2022 05:26 PM Armand Cosby M.D. Procedure Note Armand Cosby MD - 02/01/2022 Echocardiography Report Pat.Name: OBIE SMIS Pat.ID: [id number] St.Date: 02/01/2022 Refer.MD: [id number] JADIEL ALBERTS NABIH EWDPROV EWDPROV Exam Time: 2:01:00 PM Study Type:ECHO W/CONTRAST COMPLETE Height: 66.14in Weight: 215.6lb BSA: 2.07 m2 Age: 11 1955,66Y Sex: MALE BP: 124/81 Sonogrphr: Keegan Carlin [facility] Pat. Stat.:Inpatient Room: [facility] CPT - 4: C8929 Reason for Study:NSTEMI History / Clinical:Shortness of breath, dyspnea Procedures: 2D, M-mode, Doppler, Color Flow, Definity was used to enhance endocardial definition., Portable Race: W ++++++++++++++++++++++++++++++++++++ SUMMARY: ++++++++++++++++++++++++++++++++++++ The left ventricular size is normal. The left ventricular systolic function is normal. The calculated ejection fraction is 54%. Wall motion appears normal in all segments. Right ventricular systolic function is depressed. Right ventricular systolic pressure is 34+RAP mmHg. The peak velocity across the aortic biobrosthetic valve measures 2.88m/sec with a peak gradient of 33mmHg and a mean gradient of 21mmHg. The calculated aortic valve area is 1.14cm2. ++++++++++++++++++++++++++++++++++++ FINDINGS: ++++++++++++++++++++++++++++++++++++ LV: The left ventricular size is normal. The left ventricular systolic function is normal. The calculated ejection fraction is 54%. Mild asymmetrical left ventricular hypertrophy. The septal E/e' is elevated at >15. The lateral E/e' is elevated at >11. Left ventricular diastolic function is abnormal. WM: Wall motion appears normal in all segments. LVOT: The left ventricular outflow tract size is normal. RV: The right ventricular size is mildly enlarged. Right ventricular systolic function is depressed. Right ventricular systolic pressure is 34+RAP mmHg. TAPSE = 11.2mm (<16 mm indicates systolic RV dysfunction). LA: The left atrial volume is severely increased (>48 ml/M2). RA: Right atrial size is dilated. ANYA: No evidence of pericardial effusion. AO: Aortic root is not dilated. PA: Unable to reliably quantitate pulmonary systolic pressure. PVn: The pulmonary vein doppler wave form is blunted suggestive of elevated left atrial pressures. SVn: Inferior vena cava is not assessable. AV: The peak velocity across the aortic biobrosthetic valve measures 2.88m/sec with a peak gradient of 33mmHg and a mean gradient of 21mmHg. The calculated aortic valve area is 1.14cm2. No evidence of anya-prosthetic aortic valve regurgitation. No evidence of central prosthetic aortic valve regurgitation. Dimensionless index of 0.4. The aortic valve acceleration time is 91ms. The LVOT stroke volume index is 27ml/m2. MV: Trace mitral regurgitation. Trivial degree of mitral valve stenosis. Heavily calcified anterior and posterior mitral annulus. Moderate thickening of mitral valve leaflets. The mean gradient across the mitral valve is 3mmHg at a heart rate of 79bpm. PV: The pulmonic valve is normal There is trace pulmonic regurgitation TV: Doppler assessment inadequate to accurately assess the degree of tricuspid regurgitation. No evidence of tricuspid valve stenosis. ++++++++++++++++++++++++++++++++++++ MEASUREMENTS: ++++++++++++++++++++++++++++++++++++ DOPPLER LVOT LVOTpkPG 4 mmHg LVOTmnPG 2 mmHg LVOTpkVel 102 cm/s (70-110)+ LVOT SV 58 ml LVOT TVI 18.6 cm LVOT CO 90 ml/s AV Forward Flow AV TVI 51.2 cm AV pkPG 33 mmHg AV pkVel 288 cm/s (100-170)+* Area (TVI) 1.14 cm2 (3-5)* AV mnVel 214 cm/s Area (Wilbert) 1.11 cm2 (3-5)* AV mnPG 21 mmHg MV Forward Flow MV DeTm 204 ms MV mnPG 3 mmHg MVA P1/2t 2.16 cm2 (4-6)* MV pkPG 7 mmHg MV P1/2t 102 ms (30-60)+* MV pkE 86.9 cm/s (60-130)+ TV Regurg Flow TV pkPG 34 mmHg TV pkVel 293 cm/s (30-70)+* Lat E' Lat e 7.28 cm/s Lat E/E' Lat E/e 11.9 Med E' Med e 4.65 cm/s Med E/E' Med E/e 18.7 Aortic Valve Aortic Valve Ar 0.55 Aortic Valve Ve 0.35 AV DI Value 0.4 EMILE (VTI) Index Value 0.55 AV Antegrade Flow AC 91 ms Acceleration Sl 3236 cm/s2 LV Mass 2D Value 203 g LV Mass [id number] Value 98.1 g/m2 Right Ventricle Right Ventricle 7.35 cm/s 2D Left Ventricle LVIDd 4.18 cm (3.6-5.2) LV EF(Bi-Plane) 54 % (63-77)* LVIDs 2.96 cm (2.3-3.9) LVPW LVPWd 1.26 cm Ventricular Septum IVSd 1.37 cm Aorta Ao Asc 2.9 cm (zsc 1.2) LVOT LVOT 2 cm Ratios IVS LA Biplane LAVol I BP 50.7 ml/m2 MMODE TA Tricuspid Annul 1.12 cm Signed 02/01/2022 05:26 PM Armand Cosby M.D. Armand Cosby MD ECHO Final Result * CULTURE, BACTERIA, BLOOD (02/01/2022 11:40 AM CDT) SPEC DESCRIPTION BLOOD 02/01/2022 5:18 AM CDT [facility] SPECIAL REQUESTS NO SPECIAL REQUEST 02/01/2022 5:18 AM CDT [facility] CULTURE RESULT NO GROWTH 5 DAYS 02/06/2022 11:33 PM CDT [facility] BLOOD SPECIMEN OBTAINED FOR BLOOD CULTURE / Unknown 02/01/2022 11:40 AM CDT 02/01/2022 11:43 AM CDT Segundo Montana MD MICROBIOLOGY - GENERAL ORDERAB LES Final Result Performing Organization Address [facility] Co de Phone Number [facility] [address] [place] [address], [phone] * PROTIME/INR, VENOUS (PROTHROMBIN TIME) (02/01/2022 11:27 AM CDT) PROTIME 12.0 9.4 - 12.5 SEC 02/01/2022 12:25 PM CDT [facility] INR 1.1 0.8 - 1.1 02/01/2022 12:25 PM CDT [facility] 02/01/2022 11:2 7 AM CDT Segundo Montana MD LABORATORY Final Result Performing Organization Address City/[facility] Co de Phone Number [facility] [address] [place] [address], [phone] * (ABNORMAL) CK (CPK) (02/01/2022 11:27 AM CDT) CPK 2,118(H) 39 - 308 U/L 02/01/2022 12:39 PM CDT [facility] 02/01/2022 11:2 7 AM CDT Segundo Montana MD LABORATORY Final Result Performing Organization Address [facility] Co de Phone Number [facility] [address] [place] [address], [phone] * (ABNORMAL) PROCALCITONIN (PCT) (02/01/2022 11:27 AM CDT) Procalcitonin 2.61(H) <0.50 NG/ML 02/02/2022 11:24 AM CDT [facility] Comment: VALUES ABOVE 2.00 NG/ML ARE HIGHLY SUGGESTIVE OF SEPSIS OR OTHER SEVERE BACTERIAL INFECTION. 02/01/2022 11:2 7 AM CDT Segundo Montana MD LABORATORY Final Result Performing Organization Address [facility] Co de Phone Number [facility] [address] [place] [address], [id number] * CULTURE, BACTERIA, BLOOD (02/01/2022 11:27 AM CDT) SPEC DESCRIPTION BLOOD 02/01/2022 5:18 AM CDT [facility] SPECIAL REQUESTS NO SPECIAL REQUEST 02/01/2022 5:18 AM CDT [facility] CULTURE RESULT NO GROWTH 5 DAYS 02/06/2022 11:33 PM CDT [facility] BLOOD SPECIMEN OBTAINED FOR BLOOD CULTURE / Unknown 02/01/2022 11:27 AM CDT 02/01/2022 11:31 AM CDT Segundo Montana MD MICROBIOLOGY - GENERAL ORDERAB LES Final Result Performing Organization Address City/[facility]/ZIP Co de Phone Number [facility] [address] [place] [address], [phone] * LIPID PANEL (02/01/2022 11:27 AM CDT) CHOLESTEROL 151 MG/DL 02/01/2022 12:29 PM CDT [facility] Comment:DESIRABLE: <200 TRIGLYCERIDES 119 MG/DL 02/01/2022 12:29 PM CDT [facility] Comment:<150 NORMAL HDL 73 >39 MG/DL 02/01/2022 12:29 PM CDT [facility] LDL (CALCULATED) 54 MG/DL 02/02/20 22 12:29 PM CDT [facility] Comment:<100 OPTIMAL VLDL CALCULATION 24 MG/DL 02/02/20 12:29 PM CDT [facility] Comment:REFERENCE RANGE NOT ESTABLISHED CHOL/HDL RATIO 2.1 02/01/2022 12:29 PM CDT [facility] Comment:REFERENCE RANGE NOT ESTABLISHED LDL/HDL 0.7 02/01/2022 12:29 PM CDT [facility] Comment:REFERENCE RANGE NOT ESTABLISHED NON HDL CHOLESTEROL 78 MG/DL 02/01/2022 12:29 PM CDT [facility] Comment:REFERENCE RANGE NOT ESTABLISHED 02/01/2022 11:2 7 AM CDT Segundo Montana MD LABORATORY Final Result Performing Organization Address City/[facility]/ZIP Co de Phone Number [facility] [address] [place] [address], [phone] * (ABNORMAL) TROPONIN, QUANT (02/01/2022 11:27 AM CDT) TROPONIN I HIGH SENSITIVITY 264(H) 0 - 78 ng/L 02/01/2022 12:12 PM CDT [facility] 02/01/2022 11:2 7 AM CDT us Segundo Montana MD LABORATORY Final Result Performing Organization Address [facility] Co de Phone Number [facility] [address] [place] [address], [phone] * (ABNORMAL) TROPONIN, QUANT (02/01/2022 11:27 AM CDT) TROPONIN I HIGH SENSITIVITY 247(H) 0 - 78 ng/L 02/01/2022 12:29 PM CDT [facility] 02/01/2022 11:2 7 AM CDT us Segundo Montana MD LABORATORY Final Result Performing Organization Address [facility] de Phone Number [facility] [address] [place] [address], [phone] * LACTIC ACID (02/01/2022 11:27 AM CDT) Pathologist [facility] LACTIC ACID VENOUS 1.2 0.4 - 2.0 MMOL/L 02/01/2022 12:11 PM CDT [facility] 02/01/2022 11:2 7 AM CDT us Segundo Montana MD LABORATORY Final Result Performing Organization Address [facility] Co de Phone Number [facility] [address] [place] [address], [phone] * (ABNORMAL) HEMOGLOBIN, GLYCATED (02/01/2022 11:27 AM CDT) HGB A1C 7.9(H) <5.7 % 02/01/2022 12:34 PM CDT [facility] ESTIMATED AVG GLUCOSE 180(H) 74 - 114 MG/DL 02/01/2022 12:34 PM CDT [facility] 02/01/2022 11:2 7 AM CDT Segundo Montana MD LABORATORY Final Result [facility] [address] [place] [address], [phone] * (ABNORMAL) COMPREHENSIVE METABOLIC PANEL (02/01/2022 11:27 AM CDT) SODIUM S/P/B 132(L) 136 - 145 MMOL/L 02/01/2022 12:29 PM CDT [facility] POTASSIUM S/P/B 3.5 3.5 - 5.1 MMOL/L 02/01/2022 12:29 PM CDT [facility] CHLORIDE S/P/B 96(L) 98 - 107 MMOL/L 02/01/2022 12:29 PM CDT [facility] CO2 25.4 21.0 - 32.0 MMOL/L 02/01/2022 12:29 PM CDT [facility] GLUCOSE 133(H) 74 - 106 MG/DL 02/01/2022 12:29 PM CDT [facility] BUN 44(H) 7 - 18 MG/DL 02/01/2022 12:29 PM CDT [facility] CREATININE S/P/B 1.53(H) 0.70 - 1.30 MG/DL 02/01/2022 12:29 PM CDT [facility] CALCIUM S/P/B 9.3 8.5 - 10.1 MG/DL 02/01/2022 12:29 PM CDT [facility] BILIRUBIN TOTAL S/P/B 1.2(H) 0.2 - 1.0 MG/DL 02/01/2022 12:29 PM T [facility] ALKALINE PHOSPHATASE S/P/B 104 45 - 115 U/L 02/01/2022 12:29 PM [facility] AST 89(H) 15 - 37 U/L 02/01/2022 12:29 PM T [facility] ALT 47 16 - 61 U/L 02/01/2022 12:29 PM [facility] TOTAL PROTEIN S/P/B 7.1 6.4 - 8.2 G/DL 02/01/2022 12:29 PM [facility] ALBUMIN S/P/B 3.5 3.4 - 5.0 G/DL 02/01/2022 12:29 PM [facility] ANION GAP 10.6 5.0 - 15.0 MMOL/L 02/01/2022 12:29 PM [facility] OSMOLALITY (CALC) 287 MOSM/KG 022 12:29 PM [facility] Comment:REFERENCE RANGE NOT ESTABLISHED GFR ESTIMATE 50(L) >90 ML/MIN/1. 73 M2 02/01/2022 12:29 PM [facility] GFR NOTES GFR REFERENCE S: 02/01/2022 12:29 PM [facility] Comment: THE ESTIMATED GFR IS [...] ml/min/1.73 m2 G5,KIDNEY FAILURE: <15 ml/min/1.73 m2 02/01/2022 11:2 7 AM CDT Segundo Montana MD LABORATORY Final Result [facility] [address] [place] [address], [phone] * (ABNORMAL) CBC W/DIFF AUTOMATED (02/01/2022 11:27 AM CDT) WBC 12.3(H) 4.0 - 10.8 x10'3/uL 02/01/2022 11:55 AM CDT [facility] RBC 3.67(L) 4.50 - 6.10 x10'6/uL 02/01/2022 11:55 AM CDT [facility] HGB 10.5(L) 13.0 - 18.0 G/DL 02/01/2022 11:55 AM CDT [facility] HCT 31.9(L) 37.0 - 52.0 % 02/01/2022 11:55 AM CDT [facility] MCV 86.9 78.0 - 100.0 FL 02/01/2022 11:55 AM CDT [facility] MCH 28.6 27.0 - 31.0 PG 02/01/2022 11:55 AM CDT [facility] MCHC 32.9(L) 33.0 - 36.0 G/DL 02/01/2022 11:55 AM CDT [facility] RDW 14.8(H) 11.5 - 14.5 % 02/01/2022 11:55 AM CDT [facility] PLT 181 150 - 350 x10'3/uL 02/01/2022 11:55 AM CDT [facility] MPV 10.8(H) 7.4 - 10.4 FL 02/01/2022 11:55 AM CDT [facility] ABS. NEUTROPHILS 8.58(H) 1.60 - 8.30 x10'3/uL 02/01/2022 11:55 AM CDT [facility] ABS. LYMPHOCYTES 1.99 0.80 - 4.70 x10'3/uL 02/01/2022 11:55 AM CDT [facility] ABS. MONOCYTES 1.56(H) 0.00 - 1.50 x10'3/uL 02/01/2022 11:55 AM CDT [facility] ABS. EOSINOPHILS 0.06 0.00 - 0.40 x10'3/uL 02/01/2022 11:55 AM CDT [facility] ABS. BASOPHILS 0.02 0.00 - 0.20 x10'3/uL 02/01/2022 11:55 AM CDT [facility] ABS. IMMATURE GRANULOCYTES 0.07(H) 0.00 - 0.03 x10'3/uL 02/01/2022 11:55 AM CDT [facility] ABS. NUCLEATED RBC'S 0.00 0.0 x10'3/uL 02/01/2022 11:55 AM CDT [facility] 02/01/2022 11:2 7 AM CDT Segundo Montana MD LABORATORY Final Result Performing Organization Address [facility] de Phone [facility] [id number], [place] [address], [id number] * (ABNORMAL) POCT glucose (02/01/2022 11:14 AM CDT) GLUCOSE POC 134(H) 70 - 109 02/01/2022 11:44 AM CDT [facility] 02/01/2022 11:1 4 AM CDT Saroj Rodriges MD POCT ORDERABLES - DEVICE Fin al Result Performing Organization Address [facility] Co de Phone Number [facility] [address] [place] [address], [id number] * ECG 12 lead (02/01/2022 6:51 AM CDT) 02/01/2022 6:51 AM CDT Narrative [facility] - 02/01/2022 7:00 AM CDT ? [facility] ?[address], [place] ??[address] ? Test Date: ?2022-02-01 Pat Name: ? OBIE SIMS ?Department: ?? 1 ? Room: ? 510AA Gender: ? Male ? Order Manager: ?? Ll : ?1955 ? Requested By: SEGUNDO MONTANA Order Number: [id number] ? Reading MD: ?? Armand Cosby ? Measurements Intervals ?[place] ? Rate: ? 80 ? P: ? SD: ? 0 ?QRS: ?-31 QRSD: ? 150 ?T: ?137 QT: ? 406 ? QTc: ?469 ? Interpretive Statements ATRIAL FIBRILLATION LEFT AXIS DEVIATION LEFT BUNDLE BRANCH BLOCK Procedure Note Armand Cosby MD - 02/01/2022 [place] [address] [place] [address] Test Date: 2022-02-01 Pat Name: OBIE SIMS Department: 1 Room: [facility] Gender: Male Order Manager: Prabha : 1955 Requested By: SEGUNDO MONTANA Order Number: [id number] Reading MD: Armand Cosby Measurements Intervals [place] Rate: 80 P: SD: 0 QRS: -31 QRSD: 150 T: 137 QT: 406 QTc: 469 Interpretive Statements ATRIAL FIBRILLATION LEFT AXIS DEVIATION LEFT BUNDLE BRANCH BLOCK us Segundo Montana MD ECG ORDERABLES Final Result [facility] * (ABNORMAL) POCT glucose (02/01/2022 6:31 AM CDT) GLUCOSE POC 175(H) 70 - 109 02/01/2022 6:32 AM CDT [facility] 02/01/2022 6:31 AM CDT Saroj Rodriges MD POCT ORDERABLES - DEVICE Fin al Result [facility] [address] [place] [address], [place] [phone] [id number] * XR CHEST PORTABLE (02/01/2022 6:14 AM CDT) Anatomical Region Laterality Modality Chest Radiographic Stephie ging 02/01/2022 6:46 AM CDT Impressions 02/01/2022 6:47 AM CDT IMPRESSION: ======== ?? 1. ??Cardiomegaly with pulmonary vascular congestion and central infiltrates suspicious for early edema Referred By: ARISTEO DUVALL Interpreted By: Nico Mann MD, 02/01/2022 6:46 AM Narrative 02/01/2022 6:47 AM CDT Examination: Chest Radiograph, 1 view Exam Date/Time: 02/01/2022 6:12 AM Reason For Exam: ??sepsis ?? Pulmonary hypertension, bilateral carotid disease, sepsis Comparison: 05/14/2016 chest radiograph Technique: Single AP view of the chest. Findings: ??Prominent cardiac silhouette. ??Poststernotomy changes. ??Atherosclerotic aorta. ??Moderate pulmonary vascular congestion. ??No large effusion. ??No pneumothorax. ??No consolidations. ??Central infiltrates. ======== Procedure Note Nico Mann MD - 02/01/2022 Examination: Chest Radiograph, 1 view Exam Date/Time: 02/01/2022 6:12 AM Reason For Exam: sepsis Pulmonary hypertension, bilateral carotid disease, sepsis Comparison: 05/14/2016 chest radiograph Technique: Single AP view of the chest. Findings: Prominent cardiac silhouette. Poststernotomy changes.Atherosclerotic aorta. Moderate pulmonary vascular congestion. No largeeffusion. No pneumothorax. No consolidations. Central infiltrates. ======== IMPRESSION: ======== 1. Cardiomegaly with pulmonary vascular congestion and centralinfiltrates suspicious for early edema Referred By: ARISTEO DUVALL Interpreted By: Nico Mann MD, 02/01/2022 6:46 AM us Segundo Montana MD GENERAL IMAGING Final Result * CULTURE URINE (02/01/2022 6:00 AM CDT) SPEC DESCRIPTION URINE CLEAN CATCH 02/01/2022 6:44 AM CDT [facility] SPECIAL REQUESTS NO SPECIAL REQUEST 02/01/2022 6:44 AM CDT [facility] CULTURE RESULT FEW CONTAMINANTS 01/21 11:45 AM CDT [facility] URINE SPECIMEN OBTAINED BY CLEAN CATCH PROCEDURE / Unknown 02/01/2022 6:00 AM CDT 02/01/2022 10:09 AM CDT us Segundo Montana MD MICROBIOLOGY - GENERAL ORDERAB LES Final Result [facility] [address] [place] [address], [id number] * (ABNORMAL) URINALYSIS (02/01/2022 6:00 AM CDT) COLOR (U) LIGHT YELLOW 02/01/2022 7:30 AM CDT [facility] TRANSPARENCY CLEAR 02/01/2022 7:30 AM CDT [facility] SPECIFIC GRAVITY (U) 1.011 1.002 - 1.035 02/01/2022 7:30 AM CDT [facility] U PH 5.0 5 - 8 02/01/2022 7:30 AM CDT [facility] PROTEIN (U) 20(A) NEGATIVE 02/01/2022 7:30 AM CDT [facility] URINE GLUCOSE NEGATIVE NEGATIVE MG/DL 02/01/2022 7:30 AM CDT [facility] KETONES MG/DL (U) NEGATIVE NEGATIVE 02/01/2022 7:30 AM CDT [facility] BILIRUBIN (U) NEGATIVE NEGATIVE 02/01/2022 7:30 AM CDT [facility] BLOOD (U) 2+(A) NEGATIVE 02/01/2022 7:30 AM CDT [facility] NITRITES NEGATIVE NEGATIVE 02/01/2022 7:30 AM CDT [facility] UROBILINOGEN NORMAL 0 - 1 EU/DL 02/01/2022 7:30 AM CDT [facility] LEUKOCYTES (U) NEGATIVE NEGATIVE 02/01/2022 7:30 AM CDT [facility] RBC/HPF 1 0 - 3 /HPF 02/01/2022 7:30 AM CDT [facility] WBC/HPF NONE 0 - 6 /HPF 02/01/2022 7:30 AM CDT [facility] BACTERIA (U) NONE /HPF 02/01/2022 7:30 AM CDT [facility] SQUAMOUS EPITHELIALS <1 02/01/2022 7:30 AM CDT [facility] URINE SPECIMEN OBTAINED BY CLEAN CATCH PROCEDURE / Unknown 02/01/2022 6:00 AM CDT us Segundo Montana MD URINE ORDERABLES Final Result [facility] [address] [place] [address], [id number] documented in this encounter Visit Diagnoses Diagnosis Elevated troponin- Primary Other abnormal blood chemistry Elevated troponin Other abnormal blood chemistry NSTEMI (non-ST elevated myocardial infarction) ([facility]) Acute myocardial infarction, subendocardial infarction, episode of care unspecified Chest pain Chest pain, unspecified Other closed fracture of distal end of right fibula, initial encounter Elevated brain natriuretic peptide (BNP) level Other nonspecific findings on examination of blood S/P aortic valve replacement with bioprosthetic valve Heart valve replaced by other means NSTEMI (non-ST elevated myocardial infarction) ([facility]) Acute myocardial infarction, subendocardial infarction, episode of care unspecified Elevated brain natriuretic peptide (BNP) level Other nonspecific findings on examination of blood Fall Unspecified fall documented in this encounter Admitting Diagnoses Diagnosis NSTEMI (non-ST elevated myocardial infarction) ([facility]) Acute myocardial infarction, subendocardial infarction, episode of care unspecified documented in this encounter Administered Medications Inactive Administered Medications - up to 3 most recent administrations Medication Order MAR Action Action Date Dose Rate Site acetaminophen (TYLENOL) tablet 650 mg 650 mg, Oral, Every 6 hours PRN, Mild pain (Scale 1 - 3), Starting on 02/01/22 at 0518, Until 02/06/22 at 1602, Maximum dose of acetaminophen is 4000 mg from all sources in 24 hours. allopurinol (ZYLOPRIM) tablet 300 mg 300 mg, Oral, Daily, First dose on 02/01/22 at 0900, Until Discontinued Given 02/06/2022 8:59 AM CDT 300 mg Given 02/05/2022 8:06 AM CDT 300 mg Given 02/04/2022 8:01 AM CDT 300 mg amLODIPine (NORVASC) tablet 2.5 mg 2.5 mg, Oral, Daily, First dose on 02/01/22 at 0900, Until Discontinued Given 02/06/2022 9:00 AM CDT 2.5 mg Given 02/05/2022 8:08 AM CDT 2.5 mg Given 02/04/2022 8:01 AM CDT 2.5 mg aspirin EC (ECOTRIN) tablet 81 mg 81 mg, Oral, Daily, First dose on Wed02/01/22 at 0900, Until Discontinued, Do not break, chew, or crush. Given 02/06/2022 8:59 AM CDT 81 mg Given 02/05/2022 8:06 AM CDT 81 mg Given 02/04/2022 8:01 AM CDT 81 mg atorvastatin (LIPITOR) tablet 80 mg 80 mg, Oral, Daily, First dose on Wed02/01/22 at 0900, Until Discontinued Given 02/06/2022 9:00 AM CDT 80 mg Given 02/05/2022 8:06 AM CDT 80 mg Given 02/04/2022 8:01 AM CDT 80 mg carvedilol (COREG) tablet 6.25 mg 6.25 mg, Oral, 2 times daily, First dose on Wed02/01/22 at 0900, Until Discontinued, Hold if SBP<105 or HR<60 Given 02/06/2022 8:59 AM CDT 6.25 mg Given 02/05/2022 8:21 PM CDT 6.25 mg Given 02/05/2022 8:08 AM CDT 6.25 mg cefTRIAXone (ROCEPHIN) 1 g in sodium chloride 0.9 % 50 mL IVPB 1 g, Intravenous, at 100 mL/hr, Every 24 hours, First dose on Wed02/02/22 at 1400, Until Discontinued New Bag 02/05/2022 1:45 PM CDT 1 g 100 mL /hr New Bag 02/04/2022 1:50 PM CDT 1 g 100 mL/hr New Bag 02/03/2022 2:45 PM CDT 1 g 100 mL/hr clonazePAM (klonoPIN) tablet 1 mg 1 mg, Oral, Nightly PRN, anxiety, Starting on Wed02/01/22 at 0602, Until Wed02/05/22 at 1023, HAZARDOUS MEDICATION Given 02/01/2022 9:03 PM CDT 1 mg clonazePAM (klonoPIN) tablet 1 mg 1 mg, Oral, Nightly PRN, anxiety, Starting on Wed02/05/22 at 1022, Until Wed02/06/22 at 1602, HAZARDOUS MEDICATION HAZARDOUS MEDICATION: wear single chemotherapy approved gloves. Do not open or split. If crushing, use approved closed-system crushing device for hazardous medications. doxycycline hyclate (VIBRA-TABS) tablet 100 mg 100 mg, Oral, Every 12 hours scheduled (2 times per day), First dose on Wed02/02/22 at 2100, Until Discontinued Given 02/06/2022 9:00 AM CDT 100 mg Given 02/05/2022 8:21 PM CDT 100 mg Given 02/05/2022 8:06 AM CDT 100 mg enoxaparin (LOVENOX) 100 mg/mL syringe 100 mg 100 mg (rounded from 97.5 mg = 1 mg/kg ? 97.5 kg), Subcutaneous, Every 12 hours, First dose on Wed02/01/22 at 1315, Until Discontinued, Administer by deep SubQ injection alternating between the left or right anterolateral and left or right posterolateral abdominal wall. Given 02/06/2022 6:01 AM CDT 100 mg Right Lower Abdomen Given 02/05/2022 5:00 PM CDT 100 mg Le ft Lower Abdomen Given 02/05/2022 5:57 AM CDT 100 mg Ri ght Lower Abdomen furosemide (LASIX) injection 40 mg 40 mg, Intravenous, 2 times daily, First dose on Wed02/02/22 at 1400, Until Discontinued, Administer IV push 20-40mg/min. Given 02/02/2022 8:21 PM CDT 40 mg Given 02/02/2022 3:47 PM CDT 40 mg furosemide (LASIX) injection 40 mg 40 mg, Intravenous, Daily, First dose (after last modification) on Wed02/04/22 at 0900, Until Discontinued, Administer IV push 20-40mg/min. Given 02/06/2022 9:00 AM CDT 40 mg Given 02/05/2022 8:08 AM CDT 40 mg Given 02/04/2022 8:01 AM CDT 40 mg furosemide (LASIX) tablet 40 mg 40 mg, Oral, Daily, First dose on Wed02/07/22 at 0900, Until Discontinued gabapentin (NEURONTIN) capsule 200 mg 200 mg, Oral, Every morning, First dose on Wed02/01/22 at 0700, Until Discontinued Given 02/06/2022 6:01 AM CDT 200 mg Given 02/05/2022 5:56 AM CDT 200 mg Given 02/04/2022 7:49 AM CDT 200 mg gabapentin (NEURONTIN) capsule 400 mg 400 mg, Oral, After lunch, First dose on Wed02/01/22 at 1300, Until Discontinued Given 02/06/2022 1:13 PM CDT 400 mg Given 02/05/2022 1:45 PM CDT 400 mg Given 02/04/2022 1:50 PM CDT 400 mg gabapentin (NEURONTIN) capsule 600 mg 600 mg, Oral, Nightly at bedtime, First dose on Wed02/01/22 at 2100, Until Discontinued Given 02/05/2022 8:21 PM CDT 6 00 mg Given 02/04/2022 8:13 PM CDT 600 mg Given 02/03/2022 8:17 PM CDT 600 mg HYDROcodone-acetaminophen (NORCO) 5-325 MG tablet 1 tablet 1 tablet, Oral, Every 6 hours PRN, Moderate pain (Scale 4 - 7), Starting on Wed02/01/22 at 0558, Until Wed02/06/22 at 1602, Maximum dose of acetaminophen is 4000 mg from all sources in 24 hours. Given 02/06/2022 9:00 AM CDT 1 tablet Given 02/05/2022 8:11 AM CDT 1 tablet Given 02/04/2022 8:13 PM CDT 1 tablet insulin lispro (HUMALOG) injection 0-6 Units 0-6 Units, Subcutaneous, 4 times daily before meals and nightly, First dose on Wed02/01/22 at 0700, Until Discontinued, From sliding scale insulin subcut med order set - For TDI less than 30 units Blood Glucose: (Less than 70, Initiate Hypoglycemia Standing Orders) (70 - 149, administer 0 units) (150 - 199, administer 1 units) (200 - 249, administer 2 units) (250 - 299, administer 3 units) (300 - 349, administer 4 units) (Greater than 349, administer 6 units and Call Physician) Given 02/06/2022 1:13 PM CDT 2 Units Left Arm Given 02/06/2022 6:47 AM CDT 2 Units Le ft Arm Given 02/05/2022 10:50 PM CDT 2 Units L eft Arm ipratropium-albuterol (COMBIVENT RESPIMAT) 20-100 MCG/ACT inhaler 1 puff 1 puff, Inhalation, Every 6 hours PRN, Shortness of breath, Wheezing, Starting on Wed02/01/22 at 0518, Until Wed02/06/22 at 1602, Shake Well. Prime inhaler prior to first use. lactated ringers infusion at 75 mL/hr, Intravenous, Continuous, Starting on Wed02/01/22 at 0545, Until Wed02/01/22 at 0646 New Bag 02/01/2022 5:35 AM CDT 75 mL/hr lactated ringers infusion at 75 mL/hr, Intravenous, Continuous, Starting on Wed02/01/22 at 0715, Until Wed02/01/22 at 1714 New Bag 02/01/2022 4:03 PM CDT 75 mL/hr lidocaine 4 % patch 2 patch 2 patch, Transdermal, Administer over 12 Hours, Every 24 hours, First dose on Wed02/03/22 at 1315, Until Discontinued Patch Applied 02/05/2022 1:45 PM CDT 2 patches Left Shoulder Patch Applied 02/04/2022 12:05 PM CDT 2 patches Left Shoulder Patch Applied 02/03/2022 2:45 PM CDT 2 patches Left Hip methocarbamol (ROBAXIN) tablet 500 mg 500 mg, Oral, 3 times daily PRN, Muscle Spasms, Starting on Wed02/01/22 at 1031, Until Wed02/06/22 at 1602 Given 02/02/2022 3:46 PM CDT 500 mg Given 02/01/2022 10:19 PM CDT 500 mg Given 02/01/2022 11:45 AM CDT 500 mg morphine injection 2 mg 2 mg, Intravenous, Once, 1 dose, On Wed02/01/22 at 0600 Given 02/01/2022 5:54 AM CDT 2 mg ondansetron (ZOFRAN) injection 4 mg 4 mg, Intravenous, Every 8 hours PRN, Nausea, Vomiting, Starting on Wed02/01/22 at 0518, Until Wed02/06/22 at 1602, IV push over 2-5 minutes. pantoprazole EC (PROTONIX) tablet 40 mg 40 mg, Oral, Daily, First dose on Wed02/01/22 at 0900, Until Discontinued, Do not break, chew, or crush. Given 02/06/2022 9:00 AM CDT 40 mg Given 02/05/2022 8:06 AM CDT 40 mg Given 02/04/2022 8:01 AM CDT 40 mg perflutren lipid microsphere (DEFINITY) injection 1 mL 1 mL, Intravenous, IMG once as needed, Contrast, 1 dose, Starting on Wed02/01/22 at 1426, Until Wed02/01/22 at 1426, Administer over 30-60 seconds. Follow with 10 mL saline flush. Given 02/01/2022 2:26 PM CDT 1 mL potassium chloride CR (KLOR-CON M) tablet 40 mEq 40 mEq, Oral, Once, 1 dose, On Wed02/03/22 at 1100, Do not chew, crush, or suck on tablet. May break in half. May dissolve whole tablet in 120 mL of water and drink immediately. Given 02/03/2022 2:45 PM CDT 40 mEq regadenoson (LEXISCAN) injection 0.4 mg 0.4 mg, Intravenous, Once, 1 dose, On Wed02/02/22 at 1400, Administer over 10 secondsIndications:Chest pain Given 02/02/2022 1:59 PM CDT 0.4 mg rOPINIRole (REQUIP) tablet 4 mg 4 mg, Oral, Nightly, First dose on Wed02/01/22 at 2100, Until Discontinued Given 02/05/2022 8:21 PM CDT 4 mg Given 02/04/2022 8:12 PM CDT 4 mg Given 02/03/2022 8:18 PM CDT 4 mg Senna (SENOKOT) 8.6 MG tablet 8.6 mg 8.6 mg, Oral, Daily as needed, Constipation, Starting on Wed02/01/22 at 0518, Until Wed02/06/22 at 1602, If both senna and polyethylene glycol are ordered, use as 2nd choice. Given 02/06/2022 9:06 AM CDT 8.6 mg sertraline (ZOLOFT) tablet 50 mg 50 mg, Oral, Daily, First dose on Wed02/01/22 at 0900, Until Discontinued Given 02/06/2022 8:59 AM CDT 50 mg Given 02/05/2022 8:06 AM CDT 50 mg Given 02/04/2022 8:01 AM CDT 50 mg traZODone (DESYREL) tablet 100 mg 100 mg, Oral, Nightly PRN, Sleep, Starting on Wed02/02/22 at 1245, Until Wed02/06/22 at 1602, at bedtime traZODone (DESYREL) tablet 200 mg 200 mg, Oral, Nightly at bedtime, First dose on 02/01/22 at 2100, Until Discontinued, at bedtime Given 02/01/2022 9:02 PM CDT 200 mg warfarin (COUMADIN) pharmacy to dose placeholder Oral, See admin instructions, Starting on Wed02/04/22 at 1417, Until Wed02/06/22 at 1602, Warfarin Placeholder Only: Do NOT document administrations on this placeholder. (Use medication on OCT to document administrations or contact pharmacy if medication order not entered.) warfarin (COUMADIN) Split tab 5.5 mg 5.5 mg, Oral, Once, 1 dose, On Wed02/04/22 at 1700 Given 02/04/2022 6:04 PM CDT 5.5 mg warfarin (COUMADIN) Split tab 5.5 mg 5.5 mg, Oral, Once, 1 dose, On Taisha 02/05/22 at 1700, HAZARDOUS MEDICATION: wear single chemotherapy approved gloves. Do not open or split. If crushing, use approved closed-system crushing device for hazardous medications. Given 02/05/2022 5:00 PM CDT 5.5 mg warfarin (COUMADIN) Split tab 5.5 mg 5.5 mg, Oral, Once, 1 dose, On Wed02/06/22 at 1700, HAZARDOUS MEDICATION: wear single chemotherapy approved gloves. Do not open or split. If crushing, use approved closed-system crushing device for hazardous medications. documented in this encounter Active and Recently Administered Medications Times are shown in CDT. Scheduled Medication Order 02/04/2022 02/05/2022 02/06/2022 allopurinol (ZYLOPRIM) tablet 300 mg 300 mg, Oral, Daily, First dose on 02/01/22 at 0900, Until Discontinued 0801 (Given - Provider: Mookie Ortega Rai, RN) 0806 (Given - Provider: Mookie Ortega Rai, RN) 0859 (Given - Provider: Analy Palacio RN) amLODIPine (NORVASC) tablet 2.5 mg 2.5 mg, Oral, Daily, First dose on 02/01/22 at 0900, Until Discontinued 08 (Given - Provider: Mookie Ortega Rai, RN) 08 (Given - Provider: Mookie Ortega Rai, RN) 09 (Given - Provider: Analy Palacio RN) aspirin EC (ECOTRIN) tablet 81 mg 81 mg, Oral, Daily, First dose on 02/01/22 at 0900, Until Discontinued, Do not break, chew, or crush. 08 (Given - Provider: Mookie Ortega Rai, RN) 08 (Given - Provider: Mookie Ortega Rai, RN) 0859 (Given - Provider: Analy Palacio RN) atorvastatin (LIPITOR) tablet 80 mg 80 mg, Oral, Daily, First dose on 02/01/22 at 0900, Until Discontinued 800 (Given - Provider: Mookie Ortega Rai, RN) 805 (Given - Provider: Mookie Ortega Rai, RN) 899 (Given - Provider: Analy Palacio RN) carvedilol (COREG) tablet 6.25 mg 6.25 mg, Oral, 2 times daily, First dose on 02/01/22 at 0900, Until Discontinued, Hold if SBP<105 or HR<60 08 (Given - Provider: Mookie Ortega Rai, RN)2012 (Given - Provider: Ludwig Gilman RN) 08 (Given - Provider: Mookie Ortega Rai, RN)2020 (Given - Provider: Ludwig Gilman RN) 0859 (Given - Provider: Analy Palacio RN) cefTRIAXone (ROCEPHIN) 1 g in sodium chloride 0.9 % 50 mL IVPB 1 g, Intravenous, at 100 mL/hr, Every 24 hours, First dose on Wed02/02/22 at 1400, Until Discontinued 1350 (New Bag - Provider: Mookie Ortega Rai, RN)1459 (Infusion Stop Time - Provider: Mookie Ortega Rai, RN) 1345 (New Bag - Provider: Mookie Ortega Rai, RN)1456 (Infusion Stop Time - Provider: Mookie Ortega Rai, RN) 1400 (Canceled Entry - Provider: Automatic Discharge Provider - Comment: Automatically canceled at discontinue of medication order) doxycycline hyclate (VIBRA-TABS) tablet 100 mg 100 mg, Oral, Every 12 hours scheduled (2 times per day), First dose on Wed02/02/22 at 2100, Until Discontinued 08 (Given - Provider: Mookie Ortega Rai, RN)2012 (Given - Provider: Ludwig Gilman RN) 805 (Given - Provider: Mookie Ortega Rai, RN)2020 (Given - Provider: Ludwig Gilman RN) 09 (Given - Provider: Analy Palacio, YUNI) enoxaparin (LOVENOX) 100 mg/mL syringe 100 mg 100 mg (rounded from 97.5 mg = 1 mg/kg ? 97.5 kg), Subcutaneous, Every 12 hours, First dose on 02/01/22 at 1315, Until Discontinued, Administer by deep SubQ injection alternating between the left or right anterolateral and left or right posterolateral abdominal wall. 0749 (Given - Provider: Mookie Ortega Rai, RN - Comment: To cluster med pass ad preserve sleep hygeine)1803 (Given - Provider: Mookie Ortega Rai, RN) 0557 (Given - Provider: Ludwig Gilman RN)1700 (Given - Provider: Mookie Ortega Rai, RN) 06 (Given - Provider: Ludwig Gilman RN) furosemide (LASIX) injection 40 mg (CANCELED) 40 mg, Intravenous, Daily, First dose (after last modification) on Wed02/04/22 at 0900, Until Discontinued, Administer IV push 20-40mg/min. 0801 (Given - Provider: Mookie Ortega Rai, RN) 08 (Given - Provider: Mookie Ortega Rai, RN) 09 (Given - Provider: Analy Palacio, YUNI) furosemide (LASIX) tablet 40 mg 40 mg, Oral, Daily, First dose on Wed02/07/22 at 0900, Until Discontinued gabapentin (NEURONTIN) capsule 200 mg(Linked Group 1) 200 mg, Oral, Every morning, First dose on 02/01/22 at 0700, Until Discontinued 0749 (Given - Provider: Mookie Ortega Rai, RN) 0556 (Given - Provider: Ludwig Gilman RN) 06 (Given - Provider: Ludwig Gilman RN) gabapentin (NEURONTIN) capsule 400 mg(Linked Group 1) 400 mg, Oral, After lunch, First dose on Wed02/01/22 at 1300, Until Discontinued 1350 (Given - Provider: Mookie Ortega Rai, RN) 1345 (Given - Provider: Mookie Ortega Rai, RN) 1313 (Given - Provider: Analy Palacio, YUNI) gabapentin (NEURONTIN) capsule 600 mg(Linked Group 1) 600 mg, Oral, Nightly at bedtime, First dose on Wed02/01/22 at 2100, Until Discontinued 2012 (Given - Provider: Ludwig Gilman RN) 2020 (Given - Provider: Ludwig Gilman RN) insulin lispro (HUMALOG) injection 0-6 Units 0-6 Units, Subcutaneous, 4 times daily before meals and nightly, First dose on Wed02/01/22 at 0700, Until Discontinued, From sliding scale insulin subcut med order set - For TDI less than 30 units Blood Glucose: (Less than 70, Initiate Hypoglycemia Standing Orders) (70 - 149, administer 0 units) (150 - 199, administer 1 units) (200 - 249, administer 2 units) (250 - 299, administer 3 units) (300 - 349, administer 4 units) (Greater than 349, administer 6 units and Call Physician) 0748 (Given - Provider: Mookie Ortega Rai, RN)1137 (Given - Provider: Mookie Ortega Rai, RN)1803 (Given - Provider: Mookie Ortega Rai, RN)2244 (Given - Provider: Ludwig Gilman RN) 0655 (Given - Provider: Ludwig Gilman RN)1204 (Given - Provider: Mookie Ortega Rai, RN)1700 (Given - Provider: Mookie Ortega Rai, RN)2250 (Given - Provider: Ludwig Gilman RN) 0647 (Given - Provider: Ludwig Gilman RN)1313 (Given - Provider: Analy Palacio, YUNI)1600 (Canceled Entry - Provider: Automatic Discharge Provider - Comment: Automatically canceled at discontinue of medication order) lactulose (CEPHULAC) packet 20 g 20 g, Oral, Once, 1 dose, On Wed02/06/22 at 1315, Dissolve contents of packet in 120 mL water 1430 (Hold - Provide r: Analy Palacio RN - Reason: Other - Comment: To be given at facility. RN aware) lidocaine 4 % patch 2 patch 2 patch, Transdermal, Administer over 12 Hours, Every 24 hours, First dose on Wed02/03/22 at 1315, Until Discontinued 0159 (Patch Removed - Provider: Bull Cobos RN)1205 (Patch Applied - Provider: Mookie Ortega Rai, RN) 0025 (Patch Removed - Provider: Ludwig Gilman RN)1345 (Patch Applied - Provider: Mookie Ortega Rai, RN) 0248 (Patch Removed - Provider: Ludwig Gilman RN)1309 (Not Given - Provider: Analy Palacio RN - Reason: Patient/family declined) pantoprazole EC (PROTONIX) tablet 40 mg 40 mg, Oral, Daily, First dose on 02/01/22 at 0900, Until Discontinued, Do not break, chew, or crush. 0801 (Given - Provider: Mookie Ortega Rai, RN) 0806 (Given - Provider: Mookie Ortega Rai, RN) 0900 (Given - Provider: Analy Palacio RN) rOPINIRole (REQUIP) tablet 4 mg 4 mg, Oral, Nightly, First dose on Wed02/01/22 at 2100, Until Discontinued 2011 (Given - Provider: Ludwig Gilman RN) 2020 (Given - Provider: Ludwig Gilman RN) sertraline (ZOLOFT) tablet 50 mg 50 mg, Oral, Daily, First dose on 02/01/22 at 0900, Until Discontinued 08 (Given - Provider: Mookie Ortega Rai, RN) 08 (Given - Provider: Mookie Ortega Rai, RN) 0859 (Given - Provider: Analy Palacio RN) warfarin (COUMADIN) pharmacy to dose placeholder(Linked Group 2) Oral, See admin instructions, Starting on Wed02/04/22 at 1417, Until Wed02/06/22 at 1602, Warfarin Placeholder Only: Do NOT document administrations on this placeholder. (Use medication on OCT to document administrations or contact pharmacy if medication order not entered.) warfarin (COUMADIN) Split tab 5.5 mg (COMPLETED) 5.5 mg, Oral, Once, 1 dose, On Wed02/04/22 at 1700 1804 (Given - Provider: Mookie Ortega Rai, RN) warfarin (COUMADIN) Split tab 5.5 mg (COMPLETED) 5.5 mg, Oral, Once, 1 dose, On Taisha 02/05/22 at 1700, HAZARDOUS MEDICATION: wear single chemotherapy approved gloves. Do not open or split. If crushing, use approved closed-system crushing device for hazardous medications. 1700 (Given - Provider: Mookie Ortega Rai, RN) warfarin (COUMADIN) Split tab 5.5 mg 5.5 mg, Oral, Once, 1 dose, On Wed02/06/22 at 1700, HAZARDOUS MEDICATION: wear single chemotherapy approved gloves. Do not open or split. If crushing, use approved closed-system crushing device for hazardous medications. PRN Medication Order 02/04/2022 02/05/2022 02/06/2022 acetaminophen (TYLENOL) tablet 650 mg 650 mg, Oral, Every 6 hours PRN, Mild pain (Scale 1 - 3), Starting on 02/01/22 at 0518, Until Wed02/06/22 at 1602, Maximum dose of acetaminophen is 4000 mg from all sources in 24 hours. clonazePAM (klonoPIN) tablet 1 mg 1 mg, Oral, Nightly PRN, anxiety, Starting on Taisha 02/05/22 at 1022, Until Wed02/06/22 at 1602, HAZARDOUS MEDICATION HAZARDOUS MEDICATION: wear single chemotherapy approved gloves. Do not open or split. If crushing, use approved closed-system crushing device for hazardous medications. HYDROcodone-acetaminophe n (NORCO) 5-325 MG tablet 1 tablet 1 tablet, Oral, Every 6 hours PRN, Moderate pain (Scale 4 - 7), Starting on 02/01/22 at 0558, Until Wed02/06/22 at 1602, Maximum dose of acetaminophen is 4000 mg from all sources in 24 hours. 0159 (Given - Provider: Bull Cobos RN)1204 (Given - Provider: Mookie Ortega Rai, RN)2012 (Given - Provider: Ludwig Gilman RN) 0811 (Given - Provider: Mookie Ortega Rai, RN) 0900 (Given - Provider: Analy Palacio RN) ipratropium-albuterol (COMBIVENT RESPIMAT) 20-100 MCG/ACT inhaler 1 puff 1 puff, Inhalation, Every 6 hours PRN, Shortness of breath, Wheezing, Starting on Wed02/01/22 at 0518, Until Wed02/06/22 at 1602, Shake Well. Prime inhaler prior to first use. methocarbamol (ROBAXIN) tablet 500 mg 500 mg, Oral, 3 times daily PRN, Muscle Spasms, Starting on Wed02/01/22 at 1031, Until Wed02/06/22 at 1602 ondansetron (ZOFRAN) injection 4 mg 4 mg, Intravenous, Every 8 hours PRN, Nausea, Vomiting, Starting on Wed02/01/22 at 0518, Until Wed02/06/22 at 1602, IV push over 2-5 minutes. Senna (SENOKOT) 8.6 MG tablet 8.6 mg 8.6 mg, Oral, Daily as needed, Constipation, Starting on Wed02/01/22 at 0518, Until Wed02/06/22 at 1602, If both senna and polyethylene glycol are ordered, use as 2nd choice. 905 (Given - Provider: Analy Palacio, YUNI) traZODone (DESYREL) tablet 100 mg 100 mg, Oral, Nightly PRN, Sleep, Starting on Wed02/02/22 at 1245, Until Wed02/06/22 at 1602, at bedtime Linked Groups Order Group 1: gabapentin (NEURONTIN) capsule 200 mgJump to med 200 mg, Oral, Every morning, First dose on Wed02/01/22 at 0700, Until Discontinued And gabapentin (NEURONTIN) capsule 400 mgJump to med 400 mg, Oral, After lunch, First dose on Wed02/01/22 at 1300, Until Discontinued And gabapentin (NEURONTIN) capsule 600 mgJump to med 600 mg, Oral, Nightly at bedtime, First dose on Wed02/01/22 at 2100, Until Discontinued Group 2: Pharmacy to dose warfarin (COUMADIN) (CANCELED) Routine, Once, On Wed02/04/22 at 1418, For 1 occurrence, [facility] IN[facility]? 2-3 And warfarin (COUMADIN) pharmacy to dose placeholderJump to med Oral, See admin instructions, Starting on Wed02/04/22 at 1417, Until Wed02/06/22 at 1602, Warfarin Placeholder Only: Do NOT document administrations on this placeholder. (Use medication on OCT to document administrations or contact pharmacy if medication order not entered.) documented in this encounter Additional Health Concerns Assessment Noted Time PHQ-9 Depression Total Score: 0 12/02/19 1:18 PM CDT documented as of this encounter Care Teams Node Js Developer Relationship Specialty Start Date End Date Megan Infante MD [address] [facility] [place] [address] PCP - General FAMILY PRACTICE 04/06/16 Piyush Pandey MD [employer] Executive CARDIOVASCULAR DISEASE 04/06/16 12/28/23 Barney Chase, CERAMICS TECHNICIAN, MANAGER CULINARY-C [address] [facility] [address] [place] [phone] NURSE PRACTITIONER 01/04/17 04/03/24 Linda Block MD [address] [address] [employer] Executive CLINICAL CARDIAC ELECTROPHYSIOLOGY 02/08/17 04/12/23 Jeff Grace MD [address] [facility] [address] [phone] Consulting Physician INTERNAL MEDICINE 02/20/19 3 Zaki Ortiz MD [address] [facility] [address] [address] Consulting Physician PULMONARY DISEASE 07/12/19 documented as of this encounter
--- OUTSIDE RECORDS SUMMARY | 2024-09-03 19:12 | XMS_ITS | Encounter Summary ---
Author Organization [facility] Address [facility] [place] [address] [place] [address] Care Team Providers Care Filling Layer Up Name Role Phone Piyush Pandey MD Unavailable Unavailabl e Megan Infante MD Primary Care Provider [phone] Sharmila Davis APRN RIGGING AND CONTROLS AIRCRAFT MECHANIC-C Unavailable Linda Block MD Unavailable [phone] Jeff Grace MD Unavailable Zaki Ortiz MD Unavailable [phone] Encounter Details Date Type Department Care Team (Late st Contact Info) Description 12/23/2021 Orders Only [facility] [address] [place] [address] Renee Rebolledo LPN Social History Tobacco Use Types Packs/Day Years [...] st Contact Info) Description 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 AMER. --- <=90 EGFR NON-AFR. AMER. 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 Encounter for long-term (current) use of other medications documented in this encounter Additional Health Concerns Assessment Noted Time PHQ-9 Depression Total Score: 0 12/02/19 22 1:18 PM CDT documented as of this encounter Care Teams Filling Layer Up Relationship Specialty Start Date End Date Megan Infante MD [address] [facility] [address] [place] [phone] PCP - General FAMILY PRACTICE 04/06/16 Piyush Pandey MD [employer] [employer] Manager CARDIOVASCULAR DISEASE 04/06/16 12/28/23 Sharmila Davis APRN, RIGGING AND CONTROLS AIRCRAFT MECHANIC-C [address] [facility] [address] [place] [phone] NURSE PRACTITIONER 01/04/17 04/03/24 Linda Block MD [address] [address] [place] Government Affairs Manager CLINICAL CARDIAC ELECTROPHYSIOLOGY 02/08/17 04/12/23 Jeff Grace MD [address] [address] Consulting Physician INTERNAL MEDICINE 02/20/19 3 Zaki Ortiz MD [address] [address] Consulting Physician PULMONARY DISEASE 07/12/19 documented as of this encounter
--- OUTSIDE RECORDS SUMMARY | 2024-09-03 19:12 | XMS_ITS | Encounter Summary ---
Author Organization [facility] Address [facility] access hospital6 [place] [address] [place] [address] Care Team Providers Care Hockey Instructor Name Role Phone Piyush Pandey MD Unavailable Unavailabl e Megan Infante MD Primary Care Provider [phone] Sharmila Davis APRN LEARNING AND DEVELOPMENT ASSISTANT-C Unavailable [phone] Linda Block MD Unavailable [phone] Jeff Grace MD Unavailable Zaki Ortiz MD Unavailable [phone] Reason for Visit * Reason Onset Date Comments Pre-visit Gap Closure 12/01/2021 Encounter Details Date Type Department Care Team (Late st Contact Info) Description 12/01/2021 Telephone [employer] [facility] [address] [place] [address] Louie Borges MA Pre-visit Gap Closure Social History Tobacco Use Types Packs/Day Years [...] suspected to have Coronavirus/COVID-19? No / Unsure 11/25/2021 8:48 AM CDT documented as of this encounter Progress Notes * Louie Borges MA - 12/01/2021 1:15 PM CDTSummary: Gap closure I am calling this patient as a patient advocate for the [facility] Virtual Standard Work Program. You can reach me by phone at [phone] or by email at [email or web address]. documented in this encounter Plan of Treatment Upcoming Encounters Date Type Department Care Team (Late st Contact Info) Description 09/25/2024 2:00 PM POLYMER ENGINEER Appointment [facility] [address] [place] [address] Zayra Powell, [facility] [address] [place] [address] 10/16/2024 3:30 PM POLYMER ENGINEER Office Visit [facility] [facility] [address] [place] [address] Brit Gonzáles MD [address] [place], [place] [phone] documented as of this encounter Visit Diagnoses Not on filedocumented in this encounter Additional Health Concerns Assessment Noted Time PHQ-9 Depression Total Score: 0 12/02/19 22 1:18 PM CDT documented as of this encounter Care Teams Hockey Instructor Relationship Specialty Start Date End Date Megan Infante MD [address] [place] [address] PCP - General FAMILY PRACTICE 04/06/16 Piyush Pandey MD [place] Drier Take Off Tender CARDIOVASCULAR DISEASE 04/06/16 12/28/23 Sharmila Davis APRN, LEARNING AND DEVELOPMENT ASSISTANT-C [address] [facility] [address] [place] [phone] NURSE PRACTITIONER 01/04/17 04/03/24 Linda Block MD [address] [facility] [address] [place] [phone] [place] Drier Take Off Tender CLINICAL CARDIAC ELECTROPHYSIOLOGY 02/08/17 04/12/23 Jeff Grace MD [address] [facility] [address] [phone] Consulting Physician INTERNAL MEDICINE 02/20/19 3 Zaki Ortiz MD [address] [facility] [address] [phone] Consulting Physician PULMONARY DISEASE 07/12/19 documented as of this encounter
--- OUTSIDE RECORDS SUMMARY | 2024-09-03 19:12 | XMS_ITS | Encounter Summary ---
Author Organization [facility] Address [facility] [place] [address] [place] [address] Care Team Providers Care Senior Planner Name Role Phone Piyush Pandey MD Unavailable Unavailabl e Megan Infante MD Primary Care Provider [phone] Sharmila Davis APRN, CRM DEVELOPER-C Unavailable [phone] Linda Block MD Unavailable [phone] Jeff Grace MD Unavailable Zaki Ortiz MD Unavailable [phone] Reason for Visit * Reason Onset Date Comments Record Request 12/15/2021 Encounter Details Date Type Department Care Team (Late st Contact Info) Description 12/15/2021 Telephone [facility] [address] [place] [address] Sharmila Davis APRN, CRM DEVELOPER-C [address] [facility] [address] [place] [address] Record Request Social History Tobacco Use Types Packs/Day [...] as of this encounter Progress Notes * Amalia Bay LPN - 12/16/2021 8:59 AM CDT Spoke to Mendez he is aware that he needs to get labs on or Wednesday at [facility] in [place] . Did fax orders to to hospital at [phone].Mendez does verbalize understanding. * Sharmila Davis APRN, NP-C - 12/15/2021 11:11 PM CDT I gave him lab orders to be done in [place] and told him we would call and let him know when to have them drawn based on his most recent labs. Can you let him know that I would like him to have themdrawn later this week, either or Wednesday? * Amalia Bay LPN - 12/15/2021 2:35 PM CDT BMP from 12/04/21 abstracted in Epic. * Amalia Bay LPN - 12/15/2021 2:20 PM CDT Did call [facility] in [place] requesting the most recent CMP or BMP . They will fax results to our office. documented in this encounter Plan of Treatment Upcoming Encounters Date Type Department Care Team (Late st Contact Info) Description 09/25/2024 2:00 PM BIOMECHANICAL ENGINEER Appointment [facility] [address] [place], [place] [phone] Zayra Powell, SHOP FIRER/FIREMAN [address] [place] [address] 10/16/2024 3:30 PM BIOMECHANICAL ENGINEER Office Visit [facility] [phone] [place] [phone] Brit Gonzáles MD [address] [place], [place] [phone] documented as of this encounter Visit Diagnoses Not on filedocumented in this encounter Additional Health Concerns Assessment Noted Time PHQ-9 Depression Total Score: 0 12/02/19 22 1:18 PM CDT documented as of this encounter Care Teams Senior Planner Relationship Specialty Start Date End Date Megan Infante MD [address] [facility] [place] [phone] PCP - General FAMILY PRACTICE 04/06/16 Piyush Pandey MD [place] Supervisor Press Room CARDIOVASCULAR DISEASE 04/06/16 12/28/23 Sharmila Davis, WASTE REMOVALIST, CRM DEVELOPER-C [address] [facility] [address] [place] [phone] NURSE PRACTITIONER 01/04/17 04/03/24 Linda Block MD [address] [facility] [address] [place] [phone] [place] Supervisor Press Room CLINICAL CARDIAC ELECTROPHYSIOLOGY 02/08/17 04/12/23 Jeff Grace MD [address] [facility] [address] [phone] Consulting Physician INTERNAL MEDICINE 02/20/19 3 Zaki Ortiz MD [address] [facility] [address] [place] [phone] Consulting Physician PULMONARY DISEASE 07/12/19 documented as of this encounter
--- OUTSIDE RECORDS SUMMARY | 2024-09-03 19:12 | XMS_ITS | Encounter Summary ---
Author Organization [facility] Address [address] [place] [address]. [place] [address] [place] [address] Care Team Providers Care Night Patrol Inspector Name Role Phone Piyush Pandey MD Unavailable Unavailabl e Megan Infante MD Primary Care Provider [phone] Sharmila Davis APRN CLUB STEWARD-C Unavailable Linda Block MD Unavailable [phone] Jeff Grace MD Unavailable Zaki Ortiz MD Unavailable [phone] Reason for Visit * Reason Comments Follow Up bilateral leg pain Encounter Details Date Type Department Care Team (Latest Contact Info) Description 12/09/2021 10:30 AM CDT Office Visit [facility] [place] [address] Jeff Grace MD [address] [place], [place] [address] Follow Up (bilateral leg pain) Social History Tobacco Use Types Packs/Day Years [...] Sign Reading Time Taken Comments Blood Pressure 142/92 12/09/2021 10:32 AM CDT Pulse 94 12/09/2021 10:32 AM CDT Temperature - - Respiratory Rate 18 12/09/2021 10:3 2 AM CDT Oxygen Saturation - - Inhaled Oxygen Concentration - - Weight 100.6 kg (221 lb 12.8 oz) 2021 10:32 AM CDT Height 170.2 cm (5' 7 ) 12/09/2021 10:3 2 AM CDT Body Mass Index 34.74 12/09/2021 10:32 AM CDT documented in this encounter Patient Instructions * Patient Instructions* Dasha Gil RN - 12/09/2021 10:30 AM CDT Follow up in 6 months, someone will call for appointment documented in this encounter Progress Notes * Jeff Grace MD - 12/09/2021 10:30 AM CDT Reason for Visit: Follow Up (bilateral leg pain) History of Present Illness: 66 year-old male whose cardiovascular history consists of: 1. Bilateral leg pain. 2. Chronic venous insufficiency. 3. Atrial fibrillation. 4. HTN and CHF with Bioprosthetic aortic valve replacement. 5. COPD. Still continues to have leg pain but now describes pain more related at night than the arthritis pain that he described before. ASSESSMENT AND PLAN: 1. Bilateral leg pain. I think patient's pain is secondary non arterial causes. STELLA noted bilateralABI is noncompressible with toe pressure of 102 mmHg on right and 152 mmHg on left His ABIs were normal/consistent with calcific disease, which is possible given his diabetes and age. I suspect some of this could be related to venous insufficiency, recommend continued use of compression stockings. Patient not wanting to come to [place] for venous incompetency testing. 2. Chronic venous insufficiency with bilateral lower extremity edema. Edema better with decreasing the dose of amlodipine. Recommend 20-30 mm compression stockings. 3. Atrial fibrillation. Patient on chronic Coumadin. 4. HTN and CHF. Defer to your office and Dr. Pandey. 5. COPD. Follow-up in 6 months. Medications: Current Outpatient Medications: ??? albuterol sulfate [...] Rfl: ??? carvedilol 6.25 MG tablet, Take 6.25 mg by mouth 2 (two) times daily., Disp: , Rfl: ??? clonazePAM 1 MG tablet, Take 1 mg by mouth nightly as needed. , Disp: , Rfl: ??? COMPRESSION STOCKINGS, 20-30 MMHg Compression Stocking Knee High open or closed toe Dx I83.893,Disp: 1 Container, Rfl: 6 ??? enoxaparin 40 MG/0.4ML Solution, , Disp: , Rfl: ??? Jpsimlenmep-Ifuzzyvkc-Yzfksq 100-62.5-25 MCG/INH AEROSOL POWDER, BREATH ACTIVATED, Inhale into the lungs daily., Disp: , Rfl: ??? furosemide 40 MG tablet, Take 2 tablets (80 mg total) by mouth daily., Disp: 30 tablet, Rfl: 0 ??? gabapentin 100 MG capsule, Take 100 mg by mouth. 100 mg in the AM and 300 at bedtime, Disp: , Rfl: ??? glipiZIDE [...] mouth daily. , Disp: , Rfl: ??? magnesium oxide 400 (241.3 MG) MG tablet, Take 400 mg by mouth daily. , Disp: , Rfl: ??? Melatonin 10 MG Cap, Take 10 mg by mouth nightly as needed., Disp: , Rfl: ??? metFORMIN 500 MG tablet, Take 500 mg by mouth 2 (two) times daily with meals., Disp: , Rfl: ??? montelukast 10 MG tablet, Take 1 tablet (10 mg total) by mouth daily. At 5 PM, Disp: 30 tablet,Rfl: 3 ??? nystatin cream, Apply topically as needed. , Disp: , Rfl: ??? NYSTOP powder, , Disp: , Rfl: ??? pantoprazole EC 40 MG tablet, Take 1 tablet (40 mg total) by mouth 2 (two) times daily., Disp: 60 tablet, Rfl: 3 ??? potassium chloride CR 20 MEQ tablet, Take 40 mEq by mouth daily. , Disp: , Rfl: ??? pramipexole 0.5 MG tablet, Take 0.5 mg by mouth 2 (two) times daily., Disp: , Rfl: ??? sertraline 100 MG tablet, Take 150 mg by mouth daily. , Disp: , Rfl: ??? SPIRONOLACTONE 25 MG tablet, TAKE 1 TABLET BY MOUTH EVERY MORNING (Patient taking differently: Take 25 mg by mouth daily. ), Disp: 90 tablet, Rfl: 3 ??? trazodone 100 MG tablet, Take 200 mg by mouth nightly at bedtime. at bedtime, Disp: , Rfl: 3 ??? triamcinolone 0.5 % cream, Apply topically 2 (two) times daily. , Disp: , Rfl: ??? warfarin 1 MG tablet, Take 1 mg by mouth daily. 6.5mg daily, Disp: , Rfl: No Known Allergies Past [...] of bilateral lower extremities with other complications Past Surgical History: Procedure Laterality Date ??? [...] MGM ??? PGM Review of Systems Constitutional: Negative for recent unintentional weight gain, recent unintentional weight loss, new or significant fatigue and weakness. HENT: Negative for new or significant hearing loss. Eyes: Negative for blurred vision and double vision. Respiratory: Negative for cough, new or significant shortness of breath and snoring. Cardiovascular: See HPI. Positive for claudication.Negative for palpitations. Gastrointestinal: Negative for blood in stool and melena. Genitourinary: Negative for dysuria. Musculoskeletal: Negative for myalgias. Skin: Negative for rash. Neurological: Negative for tingling/numbness and focal weakness. Endo/Heme/Allergies: Negative for new or significant bruising/bleeding and polydipsia. Psychiatric/Behavioral: Negative for depression and new or significant memory loss. Filed Vitals: 12/09/21 1032 BP: (!) 142/92 Pulse: 94 Resp: 18 Weight: 100.6 kg (221 lb 12.8 oz) Height: 5' 7 (1.702 m) Vitals: 12/09/21 1032 Patient Position: Sitting BP Location: Left arm Cuff size: Adult Regular BP: (!) 142/92 Pulse: 94 Body mass index is 34.74 kg/m??. Physical Exam Constitutional: No distress. HENT: Dentition normal. Eyes: Conjunctivae normal. Neck: Neck supple. No JVD. Pulmonary: Effort normal. Breath sounds normal. Abdomen: No tenderness. No mass. No hepatomegaly. No splenomegaly. Abdominal aorta not palpably enlarged. Neurological: Alert. Oriented x 3. Appropriate mood and affect. Skin: Dry. Warm. No cyanosis. No clubbing. Musculoskeletal: No kyphosis. Cardiovascular: Rate: Regular rhythm and Normal rate. PMI: PMI not displaced Pulses: Right Carotid pulses 2+, Left Carotid pulses 2+, Right Femoral pulses 2+, Left Femoral pulses 2+, Right DP pulses 1+, Left DP pulses 2+, Right PT pulses 2+, Left PT Pulses 2+, Edema left: 1+., Edema Right: 1+. , Negative for edema. Heart Sounds: Normal heart sounds. Normal S1 and Normal S2 No gallop. No S3 sound. No S4 sound and No murmur. Cardiovascular Comments: 0-1+ pitting edema bilaterally early venous stasis changes. Diagnoses/Impression: 1. Pain in both lower extremities 2. Leg edema Referring Provider: No ref. provider found PCP: MEGNA INFANTE MD documented in this encounter Plan of Treatment Upcoming Encounters Date Type Department Care Team (Late st Contact Info) Description 09/25/2024 2:00 PM POLITICAL REPORTER Appointment [facility] [address] [place], [place] [phone] Zayra Powell, BELT GLASS SANDER [address] [place] [address] 10/16/2024 3:30 PM POLITICAL REPORTER Office Visit [facility] [address] [place] [phone] Brit Gonzáles MD [address] [place], [place] [phone] documented as of this encounter Visit Diagnoses Diagnosis Pain in both lower extremities- Primary Leg edema Edema documented in this encounter Additional Health Concerns Assessment Noted Time PHQ-9 Depression Total Score: 0 12/02/19 22 1:18 PM CDT documented as of this encounter Care Teams Night Patrol Inspector Relationship Specialty Start Date End Date Megan Infante MD [address] [place] [phone] PCP - General FAMILY PRACTICE 04/06/16 Piyush Pandey MD [place] Cutter Helper CARDIOVASCULAR DISEASE 04/06/16 12/28/23 Sharmila Davis APRN, CLUB STEWARD-C [address] [facility] [address] [place] [phone] NURSE PRACTITIONER 01/04/17 04/03/24 Linda Block MD [address] [facility] [address] [place] [address] [place] Cutter Helper CLINICAL CARDIAC ELECTROPHYSIOLOGY 02/08/17 04/12/23 Jfef Grace MD [address] [place] [phone] Consulting Physician INTERNAL MEDICINE 02/20/19 3 Zaki Ortiz MD [address] [facility] [address] [place] [phone] Consulting Physician PULMONARY DISEASE 07/12/19 documented as of this encounter
--- OUTSIDE RECORDS SUMMARY | 2024-09-03 19:12 | XMS_ITS | Encounter Summary ---
Author Organization [facility] Address Formerly [facility] [place] [address] [place] [address] Care Team Providers Care Dry Starch Supervisor Name Role Phone Piyush Pandey MD Unavailable Unavailabl e Megan Infante MD Primary Care Provider [phone] Sharmila Davis APRN, SUSTAINABILITY PROJECT COORDINATOR-C Unavailable [phone] Linda Block MD Unavailable [phone] Jeff Grace MD Unavailable Zaki Ortiz MD Unavailable [phone] Romeo-Concetta Pond MD Unavailable [phone] Jeff Grace MD Unavailable Brit Gonzáles MD Unavailable Encounter Details Date Type Department Care Team (Late st Contact Info) Description 01/02/2022 Abstract [facility] [address] [place] [phone] Sharmila Davis APRN, SUSTAINABILITY PROJECT COORDINATOR-C [address] [facility] [address] [place] [phone] Social History Tobacco Use Types Packs/Day Years [...] st Contact Info) Description 09/25/2024 2:00 PM ENGLISH COMPOSITION INSTRUCTOR Appointment [facility] [address] [facility] [address] [place], [place] [phone] Zayra Powell, CLIENT DIRECTOR [address] [facility] [place] [address] 10/16/2024 3:30 PM ENGLISH COMPOSITION INSTRUCTOR Office Visit [facility] [place] [address] [place] [phone] Brit Gonzáles MD [address] [place], [place] [address] documented as of this encounter Procedures Procedure Name Priority Date/Time Associated Diagnosis Comments BASIC METABOLIC PANEL Routine 12/31/2021 documented in this encounter Results * (ABNORMAL) BASIC METABOLIC PANEL (12/31/2021) SODIUM S/P/B 142 134 - 144 POTASSIUM S/P/B 5.1 3.5 - 5.2 CO2 24 20 - 29 CHLORIDE S/P/B 100 96 - 106 GLUCOSE 145 65 - 99 mg/dL CALCIUM S/P/B 9.4 8.6 - 10.2 BUN 24 8 - 27 CREATININE S/P/B 1.85(A) 0.76 - 1.27 12/31/2021 us Jacquie Martel PA-C LABORATORY Final Resul t documented in this encounter Visit Diagnoses Not on filedocumented in this encounter Additional Health Concerns Infection Onset Date Last Indicated Resolved Time COVID-19 Rule Out 01/24/2022 01/24/2022 01/24/2022 6:41 PM CDT COVID-19 Rule Out 01/04/2023 01/04/2023 01/04/2023 10:12 AM CDT Assessment Noted Time PHQ-9 Depression Total Score: 0 12/02/19 22 1:18 PM CDT documented as of this encounter Care Teams Dry Starch Supervisor Relationship Specialty Start Date End Date Megan Infante MD [address] [facility] [place] [address] PCP - General FAMILY PRACTICE 04/06/16 Piyush Pandey MD [place] Bench Lathe Operator CARDIOVASCULAR DISEASE 04/06/16 12/28/23 Sharmila Davis APRN, SUSTAINABILITY PROJECT COORDINATOR-C [address] [phone] NURSE PRACTITIONER 01/04/17 04/03/24 Linda Block MD [address] [address] [place] Bench Lathe Operator CLINICAL CARDIAC ELECTROPHYSIOLOGY 02/08/17 04/12/23 Jfef Grace MD [address] [facility] [address] [address] Consulting Physician INTERNAL MEDICINE 02/20/19 3 Zaki Ortiz MD [address] [phone] Consulting Physician PULMONARY DISEASE 07/12/19 Concetta Acevedo MD [address] [place] [address] Surgeon NEUROLOGICAL SURGERY 12/16/22 Jeff Grace MD [address] [place] [address] Consulting Physician INTERNAL MEDICINE 02/11/23 Brit Gonzáles MD [address] [place] [address] Consulting Physician CARDIOVASCULAR DISEASE 12/29/23 documented as of this encounter
--- OUTSIDE RECORDS SUMMARY | 2024-09-03 19:12 | XMS_ITS | Encounter Summary ---
Author Organization [facility] Address [facility] [place] [address] [place] [address] Care Team Providers Care Wellness Trainer Name Role Phone Piyush Pandey MD Unavailable Unavailabl e Megan Infante MD Primary Care Provider [phone] Sharmila Davis APRN WIND OPERATIONS SUPERVISOR-C Unavailable [phone] Linda Block MD Unavailable [phone] Jeff Grace MD Unavailable Zaki Ortiz MD Unavailable [phone] Reason for Referral * Imaging (Routine) - Closed Specialty Diagnoses / Procedures Referred By Yung sequeira Referred To Contact RADIOLOGY Diagnoses Bilateral carotid artery disease, unspecified type (CMS/HCC) Asymptomatic carotid artery stenosis, bilateral Pain in both lower extremities Procedures USV CAROTID DUPLEX ELZA Jeff Grace MD [address] [place] [address] Phone: tel: fax: Referral ID Status Reason Start Date Expiration Date Visits Re quested Visits Authorized [id number] Closed 11/26/2020 12/26/2021 1 1 * Imaging (Routine) - Closed Specialty Diagnoses / Procedures Referred By Yung sequeira Referred To Contact RADIOLOGY Diagnoses Pain in both lower extremities Procedures USV STELLA LTD ELZA Jeff Grace MD [address] [place] [address] Phone: tel: fax: Referral ID Status Reason Start Date Expiration Date Visits Re quested Visits Authorized [id number] Closed 11/26/2020 12/27/2021 1 1 Reason for Visit * Imaging (Routine) - Closed Specialty Diagnoses / Procedures Referred By Contac t Referred To Contact RADIOLOGY Diagnoses Pain in both lower extremities Procedures USV STELLA LTD ELZA Jeff Grace MD [address] [facility] [address] [place] [address] Phone: tel: fax: Referral ID Status Reason Start Date Expiration Date Visits Re quested Visits Authorized [id number] Closed 11/26/2020 12/27/2021 1 1 Encounter Details Date Type Department Care Team (Latest Contact Info) Description 11/25/2021 8:52 AM CDT - 11/25/2021 11:59 PM CDT Hospital Encounter [facility] [address] [place] [address] Jeff Grace MD [address] [place] [address] Discharge Disposition: Home or Self Care (Routine Discharge) Social History Tobacco Use Types Packs/Day Years Used Date Smoking Tobacco: Former Smokeless Tobacco: Former Chew Alcohol Use Standard Drinks/Week Comments Yes 0 (1 standard drink = 0.6 oz pur e alcohol) 6 beers per week PHQ-2 Answer Date Recorded PHQ-2 Score - If the patient scores above 3, please move on to questions 3-9 2 10/30/2020 Sex and Gender Information Value Date Recorded [...] AM CDT documented as of this encounter Medications at Time of Discharge [...] by mouth nightly at bedtime. 12/31/2016 carvedilol 12.5 MG tablet Take 12.5 mg by mouth 2 (two) times daily. 2 carvedilol 6.25 MG tablet Take 12.5 mg by mouth 2 (two) times a day. 10/13/2021 3 clonazePAM 1 MG tablet Take 1 mg by mouth nightly as needed. 10/09/2016 2 COMPRESSION STOCKINGS 20-30 MMHg Compression Stocking Knee High open or closed toe Dx I83.893 1 Container 6 04/11/2019 2 enoxaparin 40 MG/0.4ML Solution 02/11/2021 02 2 Fluticasone-Umecl idin-Vilant 100-62.5-25 MCG/INH AEROSOL POWDER, BREATH ACTIVATED Inhale into the lungs daily. 3 furosemide 40 MG tablet 80 mg in the morning, 40 mg in the afternoon 30 tablet 09/10/2020 2 gabapentin 100 MG capsule 2 capsules in the morning, 4 capsules in the afternoon, and 8 capsules at bedtime 02/25/2017 3 glipiZIDE XL 5 MG 24 hr tablet Take 5 mg by mouth daily with breakfast. Do not break or crush tablet 3 hydrocodone-aceta minophen 7.5-325 MG tablet Take 1 tablet by mouth every 6 (six) hours as needed. 12/09/2016 2 hydrOXYzine 50 MG tablet Take 50 mg by mouth every 6 (six) hours as needed. 02/06/2020 2 losartan 50 MG tablet Take 1 tablet (50 mg total) by mouth daily. 12/02/2018 3 magnesium oxide 400 (241.3 MG) MG tablet Take 400 mg by mouth daily. 11/22/2016 2 Melatonin 10 MG Cap Take 10 mg by mouth nightly as needed. 3 metFORMIN 500 MG tablet Take 1 tablet (500 mg total) by mouth 2 (two) times daily with meals. 3 metoclopramide 10 MG tablet Take 10 mg by mouth 3 (three) times a day. 11/11/2021 2 montelukast 10 MG tabletIndications :Moderate persistent asthma without complication (HHS/HCC) Take 1 tablet (10 mg total) by mouth daily. At 5 PM 30 tablet 3 04/02/2021 2 nystatin cream Apply topically as needed. 01/31/2020 3 NYSTOP powder 02/18/2021 2 pantoprazole EC 40 MG tablet Take 1 tablet (40 mg total) by mouth 2 (two) times daily. 60 tablet 3 03/05/2020 2 potassium chloride CR 20 MEQ tablet Take 40 mEq by mouth daily. 2 pramipexole 0.5 MG tablet Take 0.5 mg by mouth 2 (two) times daily. 02/18/2021 2 rOPINIRole 2 MG tablet Take 4 mg by mouth nightly. 11/20/2021 3 sertraline 100 MG tablet Take 150 mg by mouth daily. 12/02/2018 2 sertraline 50 MG tablet Take 1 tablet (50 mg total) by mouth daily. 10/03/2021 SPIRONOLACTONE 25 MG tablet TAKE 1 TABLET BY MOUTH EVERY MORNING 90 tablet 3 10/24/2018 2 trazodone 100 MG tablet Take 200 mg by mouth nightly at bedtime. at bedtime 3 03/16/2016 2 triamcinolone 0.5 % cream Apply topically 2 (two) times daily. 04/19/2018 2 warfarin 1 MG tablet As directed 2 warfarin 10 MG tablet Take 5 mg by mouth in the morning. As directed 10/21/2021 3 documented as of this encounter Plan of Treatment Upcoming Encounters Date Type Department Care Team (Late st Contact Info) Description 09/25/2024 2:00 PM FURNACE ATTENDANT Appointment [facility] [address] [place] [address] Zayra Powell, MATRIX PLATER [address] [place] [address] 10/16/2024 3:30 PM FURNACE ATTENDANT Office Visit [facility] [address] [place] [phone] Brit Gonzáles MD [address] [place] [address] documented as of this encounter Procedures Procedure Name Priority Date/Time Associated Diagnosis Comments USV CAROTID DUPLEX ELZA Routine 11/25/2021 9:59 AM CDT Bilateral carotid artery disease, unspecified type Asymptomatic carotid artery stenosis, bilateral Pain in both lower extremities USV STELLA LTD ELZA Routine 11/25/2021 9:18 AM CDT Pain in both lower extremities documented in this encounter Results * USV CAROTID DUPLEX ELZA (11/25/2021 9:59 AM CDT) Anatomical Region Laterality Modality Neck Ultrasound us Jeff Grace MD US VASC Final Result * USV STELLA LTD ELZA (11/25/2021 9:18 AM CDT) Anatomical Region Laterality Modality Extremity Ultrasound us Jeff Grace MD US VASC Final Result documented in this encounter Visit Diagnoses Diagnosis Pain in both lower extremities Bilateral carotid artery disease, unspecified type (CMS/HCC) Asymptomatic carotid artery stenosis, bilateral documented in this encounter Care Teams Wellness Trainer Relationship Specialty Start Date End Date Megan Infante MD [address] [place] [phone] PCP - General FAMILY PRACTICE 04/06/16 Piyush Pandey MD [place] French Tutor CARDIOVASCULAR DISEASE 04/06/16 12/28/23 Sharmila Davis, BUSINESS DEVELOPMENT AGENT, WIND OPERATIONS SUPERVISOR-C [address] [facility] [address] [place] [phone] NURSE PRACTITIONER 01/04/17 04/03/24 Linda Block MD [address] [address] [place] French Tutor CLINICAL CARDIAC ELECTROPHYSIOLOGY 02/08/17 04/12/23 Jeff Grace MD [address] [address] Consulting Physician INTERNAL MEDICINE 02/20/19 3 Zaki Ortiz MD [address] [phone] Consulting Physician PULMONARY DISEASE 07/12/19 documented as of this encounter
--- OUTSIDE RECORDS SUMMARY | 2024-09-03 19:12 | XMS_ITS | Encounter Summary ---
Author Organization [facility] Address [address] [place] [address]. [place] [address] [place] [address] Care Team Providers Care Electric Motor Mechanic Name Role Phone Piyush Pandey MD Unavailable Unavailabl e Megan Infante MD Primary Care Provider [phone] Sharmila Davis APRN SOLAR PROJECT ENGINEER-C Unavailable [phone] Linda Block MD Unavailable [phone] Jeff Grace MD Unavailable Zaki Ortiz MD Unavailable [phone] Reason for Visit * Reason Comments CT (SCAN) Encounter Details Date Type Department Care Team (Late Contact Info) Description 01/31/2022 Scan [facility] Information Services [address] [place] [place] [address] Scanned, Documents CT (SCAN) Social History Tobacco Use Types Packs/Day [...] st Contact Info) Description 09/25/2024 2:00 PM WEAVER WIRE LOOM Appointment [facility] [address] [place] [address] Zayra Powell FNP [address] [place] [id number] 10/16/2024 3:30 PM WEAVER WIRE LOOM Office Visit [facility] [address] [place] [address] Brit Gonzáles MD [address] [place], [place] [address] documented as of this encounter Procedures Procedure Name Priority Date/Time Associated Diagnosis Comments CT GENERIC Routine 01/31/2022 12:00 AM CDT documented in this encounter Results * CT (01/31/2022 12:00 AM CDT) Anatomical Region Laterality Modality Other 01/31/2022 us Documents Scanned SCANNING Final Result documented in this encounter Visit Diagnoses Not on filedocumented in this encounter Additional Health Concerns Assessment Noted Time PHQ-9 Depression Total Score: 0 12/02/19 22 1:18 PM CDT documented as of this encounter Care Teams Electric Motor Mechanic Relationship Specialty Start Date End Date Megan Infante MD [address] [place] [address] PCP - General FAMILY PRACTICE 04/06/16 Piyush Pandey MD [place] Polymer Scientist CARDIOVASCULAR DISEASE 04/06/16 12/28/23 Sharmila Davis APRN, SOLAR PROJECT ENGINEER-C [address] [facility] [address] [place] [phone] NURSE PRACTITIONER 01/04/17 04/03/24 Linda Block MD [address] [facility] [address] [phone] [place] Polymer Scientist CLINICAL CARDIAC ELECTROPHYSIOLOGY 02/08/17 04/12/23 Jeff Grace MD [address] [facility] [address] [address] Consulting Physician INTERNAL MEDICINE 02/20/19 3 Zaki Ortiz MD [address] [facility] [address] [phone] Consulting Physician PULMONARY DISEASE 07/12/19 documented as of this encounter
--- OUTSIDE RECORDS SUMMARY | 2024-09-03 19:12 | XMS_ITS | Encounter Summary ---
Author Organization [facility] Address [address] [place] [address]. [place] [address] [place] [address] Care Team Providers Care [place] Machine Operator Helper Name Role Phone Piyush Pandey MD Unavailable Unavailabl e Megan Infante MD Primary Care Provider [phone] Sharmila Davis APRN LAN SPECIALIST-C Unavailable [phone] Linda Block MD Unavailable [phone] Jeff Grace MD Unavailable Zaki Ortiz MD Unavailable [phone] Encounter Details Date Type Department Care Team (Latest Contact Info) Description 01/15/2022 12:45 PM CDT - 01/15/2022 11:59 PM CDT Hospital Encounter [facility] Diagnostic Imaging [address] [place] [address] Jacinto Vega MD [address] [place] [address] Discharge Disposition: Home or Self [...] PM CDT documented as of this encounter Medications [...] st Contact Info) Description 09/25/2024 2:00 PM [address]VAGER Appoint[address] [facility] [address] [place] [address] Andre Zayra Oli, INDUSTRIAL CHEMISTRY TEACHER [address] [facility] [place] [address] 10/16/2024 3:30 PM SPOOL SALVAGER Office Visit [facility] [address] [phone] Brit Gonzáles MD [address] [place] [address] documented as of this encounter Procedures Procedure Name Priority Date/Time Associated Diagnosis Comments XR ANKLE RT M3V Routine 01/15/2022 12:51 PM CDT Acute right ankle pain documented in this encounter Results * XR ANKLE RT M3V (01/15/2022 12:51 PM CDT) Anatomical Region Laterality Modality Ankle Radiographic Stephie ging 01/15/2022 3:09 PM CDT Impressions 01/15/2022 3:11 PM CDT IMPRESSION: Unchanged radiographic appearance of the minimally displaced distal fibular fracture. No significant healing changes noted. Ordered By: JACINTO VEGA Interpreted By: Misael Diaz MD, 01/15/2022 3:09 [...] significant healing changes noted. Ordered By: JACINTO VEGA Interpreted By: Misael Diaz MD, 01/15/2022 3:09 PM Jacinto Vega MD GENERAL IMAGING Final Result documented in this encounter Visit Diagnoses Diagnosis Acute right ankle pain documented in this encounter Additional Health Concerns Assessment Noted Time PHQ-9 Depression Total Score: 0 12/02/19 22 1:18 PM CDT documented as of this encounter Care Teams [place] Machine Operator Helper Relationship Specialty Start Date End Date Megan Infante MD [address] [facility] [place] [address] PCP - General FAMILY PRACTICE 04/06/16 Piyush Pandey MD [place] Switchboard Inspector CARDIOVASCULAR DISEASE 04/06/16 12/28/23 Sharmila Davis, PEANUT SEPARATOR, LAN SPECIALIST-C [address] [facility] [address] [place] [address] NURSE PRACTITIONER 01/04/17 04/03/24 Linda Block MD [address] [place] [address] [place] Switchboard Inspector CLINICAL CARDIAC ELECTROPHYSIOLOGY 02/08/17 04/12/23 Jeff Grace MD [address] [place] [address] Consulting Physician INTERNAL MEDICINE 02/20/19 3 Zaki Ortiz MD [address] [place] [address] Consulting Physician PULMONARY DISEASE 07/12/19 documented as of this encounter
--- OUTSIDE RECORDS SUMMARY | 2024-09-03 19:12 | XMS_ITS | Encounter Summary ---
Author Organization [facility] Address [address] [place] [address]. [place] [address] [place] [address] Care Team Providers Care Stucco Laborer Name Role Phone Piyush Pandey MD Unavailable Unavailabl e Megan Infante MD Primary Care Provider [phone] Sharmila Davis APRN BARGE MASTER-C Unavailable [phone] Linda Block MD Unavailable [phone] Jeff Grace MD Unavailable Zaki Ortiz MD Unavailable [phone] Encounter Details Date Type Department Care Team (Late st Contact Info) Description 01/24/2022 Orders Only [facility] [address] [place] [address] Kilo Navarro MD [address] [place] [address] Social History Tobacco Use Types [...] Contact Info) Description 09/25/2024 2:00 PM DIRECTOR LONG TERM CARE Appointment [facility] [address] [facility] [place] [place] [address] Zayra Powell, GRADES 1 THRU 5 TEACHER [address] [facility] [place] [address] 10/16/2024 3:30 PM DIRECTOR LONG TERM CARE Office Visit [facility] [address] [place] [phone] Brit Gonzáles MD [address] [place] [address] documented as of this encounter Results * PRE-SURGICAL/PRE-PROCEDURE CORONAVIRUS (COVID 19) (01/24/2022 9:12 AM CDT) SPEC DESCRIPTION NASAL 01/25/20 9:12 AM CDT [facility] CORONAVIRUS SARS COV 2 PCR (RESP) NEGATIVE NEGATIVE 01/24/2022 6:40 PM CDT [facility] Comment: THE SARS-CoV-2 TEST HAS BEEN AUTHORIZED BY THE FDA UNDER AN EUA FOR USE BY AUTHORIZED LABORATORIES. PERFORMED BY NUCLEIC ACID AMPLIFICATION PCR FIRST TEST UNKNOWN 01/24/2022 9:12 AM CDT [facility] EMPLOYED IN HEALTHCARE NO 01/24/2022 9:12 AM CDT [facility] SYMPTOMATIC DEFINED BY CDC UNKNOWN 01/24/2022 9:12 AM CDT [facility] HOSPITALIZATION STATUS NO 01/24/2022 9:12 AM CDT [facility] PATIENT IN ICU NO 01/24/2022 9:12 AM CDT [facility] RESIDENT OF [facility] NO 01/24/2022 9:12 AM CDT [facility] NASAL STRUCTURE / Unknown 01/24/2022 9:12 AM CDT Kilo Navarro MD MICROBIOLOGY - GENERAL ORDERA BLES Final Result [facility] [address] [place] [address], [facility] [address] [place] [address], documented in this encounter Visit Diagnoses Diagnosis Pre-operative laboratory examination- Primary Pre-procedural laboratory examination documented in this encounter Additional Health Concerns Infection Onset Date Last Indicated Resolved Time COVID-19 Rule Out 01/24/2022 01/24/2022 01/24/2022 6:41 PM CDT Assessment Noted Time PHQ-9 Depression Total Score: 0 12/02/19 22 1:18 PM CDT documented as of this encounter Care Teams Stucco Laborer Relationship Specialty Start Date End Date Megan Infante MD [address] [facility] [place] [phone] PCP - General FAMILY PRACTICE 04/06/16 Piyush Pandey MD [place] Drag Out Worker CARDIOVASCULAR DISEASE 04/06/16 12/28/23 Sharmila Davis, SAP BUSINESS OBJECTS DEVELOPER, BARGE MASTER-C [address] [place] [phone] NURSE PRACTITIONER 01/04/17 04/03/24 Linda Block MD [address] [facility] [address] [place] [phone] [place] Drag Out Worker CLINICAL CARDIAC ELECTROPHYSIOLOGY 02/08/17 04/12/23 Jeff Grace MD [address] [place] [phone] Consulting Physician INTERNAL MEDICINE 02/20/19 3 Zaki Ortiz MD [address] [place] [address] Consulting Physician PULMONARY DISEASE 07/12/19 documented as of this encounter
--- OUTSIDE RECORDS SUMMARY | 2024-09-03 19:12 | XMS_ITS | Encounter Summary ---
Author Organization [facility] Address [address] [place] [address]. [place] [address] [place] [address] Care Team Providers Care Senior Mechanical Project Manager Name Role Phone Piyush Pandey MD Unavailable Unavailabl e Megan Infante MD Primary Care Provider [phone] Sharmila Davis APRN [employer]CHO[employer] SPANISH TEACHER-C Unavailable [phone] Linda Block MD Unavailable [phone] Jeff Grace MD Unavailable Zaki Ortiz MD Unavailable [phone] Encounter Details Date Type Department Care Team (Latest Contact Info) Description 01/29/2022 Travel Social History Tobacco Use Types Packs/Day [...] suspected to have Coronavirus/COVID-19? No / Unsure 01/29/2022 2:32 PM CDT documented as of this encounter Plan of Treatment Upcoming Encounters Date Type Department Care Team (Late st Contact Info) Description 09/25/2024 2:00 PM BLENDING KETTLE TENDER Appointment [facility] [address] [place], [place] [phone] Zayra Powell, GROUP COUNSELOR [address] [place] [address] 10/16/2024 3:30 PM BLENDING KETTLE TENDER Office Visit [facility] [address] [place] [phone] Brit Gonzáles MD [address] [place], [place] [phone] documented as of this encounter Visit Diagnoses Not on filedocumented in this encounter Additional Health Concerns Assessment Noted Time PHQ-9 Depression Total Score: 0 12/02/19 22 1:18 PM CDT documented as of this encounter Care Teams Senior Mechanical Project Manager Relationship Specialty Start Date End Date Megan Infante MD [address] [place] [phone] PCP - General FAMILY PRACTICE 04/06/16 Piyush Pandey MD [place] Horse Racing Manager CARDIOVASCULAR DISEASE 04/06/16 12/28/23 Sharmila Davis, ELECTRICAL SOLDERER, [employer]CHO[employer] SPANISH TEACHER-C [address] [facility] [address] [place] [phone] NURSE PRACTITIONER 01/04/17 04/03/24 Linda Block MD [address] [facility] [address] [place] [phone] [place] Horse Racing Manager CLINICAL CARDIAC ELECTROPHYSIOLOGY 02/08/17 04/12/23 Jeff Grace MD [address] [facility] [address] [phone] Consulting Physician INTERNAL MEDICINE 02/20/19 3 Zaki Ortiz MD [address] [place] [phone] Consulting Physician PULMONARY DISEASE 07/12/19 documented as of this encounter
--- OUTSIDE RECORDS SUMMARY | 2024-09-03 19:12 | XMS_ITS | Encounter Summary ---
Author Organization [facility] Address [address] [place] [address]. [place] [address] [place] [address] Care Team Providers Care Head Porter Baggage Name Role Phone Piyush Pandey MD Unavailable Unavailabl e Megan Infante MD Primary Care Provider [phone] Sharmila Davis APRN FIRE OFFICIAL-C Unavailable [phone] Linda Block MD Unavailable [phone] Jeff Grace MD Unavailable Zaki Ortiz MD Unavailable [phone] Encounter Details Date Type Department Care Team (Latest Contact Info) Description 01/15/2022 Travel Social History Tobacco Use Types Packs/Day [...] st Contact Info) Description 09/25/2024 2:00 PM PAYROLL ACCOUNTING CLERK Appointment [facility] [address] [place], [place] [phone] Zayra Powell, CT SCAN TECHNOLOGIST [address] [place] [address] 10/16/2024 3:30 PM PAYROLL ACCOUNTING CLERK Office Visit [facility] [address] [place] [phone] Brit Gonzáles MD [address] [place], [place] [phone] documented as of this encounter Visit Diagnoses Not on filedocumented in this encounter Additional Health Concerns Assessment Noted Time PHQ-9 Depression Total Score: 0 12/02/19 22 1:18 PM CDT documented as of this encounter Care Teams Head Porter Baggage Relationship Specialty Start Date End Date Megan Infante MD [address] [facility] [place] [phone] PCP - General FAMILY PRACTICE 04/06/16 Piyush Pandey MD [place] Environmental Technical Officer CARDIOVASCULAR DISEASE 04/06/16 12/28/23 Sharmila Davis, OIL SPREADER OPERATOR, FIRE OFFICIAL-C 6[address] [facility] 47 [place] [address] NURSE PRACTITIONER 01/04/17 04/03/24 Linda Block MD [address] [facility] 47 [place] [address] [place] Environmental Technical Officer CLINICAL CARDIAC ELECTROPHYSIOLOGY 02/08/17 04/12/23 Jeff Grace MD [address] [facility] [address] [phone] Consulting Physician INTERNAL MEDICINE 02/20/19 3 Zaki Ortiz MD [address] [facility] [address] [place] [address] Consulting Physician PULMONARY DISEASE 07/12/19 documented as of this encounter
--- OUTSIDE RECORDS SUMMARY | 2024-09-03 19:12 | XMS_ITS | Encounter Summary ---
Author Organization [facility] Address [address] [place] [address]. [place] [address] [place] [address] Care Team Providers Care Cracker And Cookie Machine Operator Name Role Phone Piyush Pandey MD Unavailable Unavailabl e Megan Infante MD Primary Care Provider [phone] Sharmila Davis APRN KETTLE COORDINATOR-C Unavailable Linda Block MD Unavailable [phone] Jeff Grace MD Unavailable Zaki Ortiz MD Unavailable [phone] Encounter Details Date Type Department Care Team (Late st Contact Info) Description 01/24/2022 9:07 AM CDT - 01/24/2022 11:59 PM CDT Hospital Encounter [address] [address] Jaya East[facility] [place] [address] Discharge Disposition: Home or Self [...] st Contact Info) Description 09/25/2024 2:[address] [facility] [address] [facility] [address] [place], [place] [phone] Andre Zayra Oli, BARBER TOOL SHARPENER [address] [facility] [address] [place], [place] [phone] 10/16/2024 3:30 PM COAT AGENT Office Visit [facility] [address] [facility] [address] Brit Gonzáles MD 619 [place], [place] [address] documented as of this encounter Procedures Procedure Name Priority Date/Time Associated Diagnosis Comments CORONAVIRUS (COVID 19) Routine 01/24/2022 9:12 AM CDT Pre-operative laboratory examination documented in this encounter Results * PRE-SURGICAL/PRE-PROCEDURE CORONAVIRUS (COVID 19) (01/24/2022 9:12 AM CDT) SPEC DESCRIPTION NASAL 01/25/20 9:12 AM CDT [facility] CORONAVIRUS SARS COV 2 PCR (RESP) NEGATIVE NEGATIVE 01/24/2022 6:40 PM CDT [facility] Comment: THE SARS-CoV-2 TEST HAS BEEN AUTHORIZED BY THE FDA UNDER AN EUA FOR USE BY AUTHORIZED LABORATORIES. PERFORMED BY NUCLEIC ACID AMPLIFICATION PCR FIRST TEST UNKNOWN 01/24/2022 9:12 AM CDT [facility] EMPLOYED IN HEALTHCARE NO 01/24/2022 9:12 AM CDT [facility] SYMPTOMATIC DEFINED BY CDC UNKNOWN 01/24/2022 9:12 AM CDT [facility] HOSPITALIZATION STATUS NO 01/24/2022 9:12 AM CDT [facility] PATIENT IN ICU NO 01/24/2022 9:12 AM CDT [facility] RESIDENT OF CONGREGATE CARE NO 01/24/2022 9:12 AM CDT [facility] NASAL STRUCTURE / Unknown 01/24/2022 9:12 AM CDT Kilo Navarro MD MICROBIOLOGY - GENERAL ORDERA BLES Final Result [facility] [address] [place] [address], [facility] [address] [place] [address], documented in this encounter Visit Diagnoses Diagnosis Pre-operative laboratory examination Pre-procedural laboratory examination documented in this encounter Additional Health Concerns Infection Onset Date Last Indicated Resolved Time COVID-19 Rule Out 01/24/2022 01/24/2022 01/24/2022 6:41 PM CDT Assessment Noted Time PHQ-9 Depression Total Score: 0 12/02/19 22 1:18 PM CDT documented as of this encounter Care Teams Cracker And Cookie Machine Operator Relationship Specialty Start Date End Date Megan Infante MD [address] [place] [phone] PCP - General FAMILY PRACTICE 04/06/16 Piyush Pandey MD [place] Director Global Market Research CARDIOVASCULAR DISEASE 04/06/16 12/28/23 Sharmila Davis, IMPLEMENTATION ANALYST, KETTLE COORDINATOR-C [address] [place] [address] NURSE PRACTITIONER 01/04/17 04/03/24 Linda Block MD [address] [facility] 47 [place] [address] [place] Director Global Market Research CLINICAL CARDIAC ELECTROPHYSIOLOGY 02/08/17 04/12/23 Jeff Grace MD [address] [place] [address] Consulting Physician INTERNAL MEDICINE 02/20/19 3 Zaki Ortiz MD [address] [place] [address] Consulting Physician PULMONARY DISEASE 07/12/19 documented as of this encounter
--- OUTSIDE RECORDS SUMMARY | 2024-09-03 19:12 | XMS_ITS | Encounter Summary ---
Author Organization [facility] Address [address] [place] [address]. [place] [address] [place] [address] Care Team Providers Care Cloth Examiner Name Role Phone Piyush Pandey MD Unavailable Unavailabl e Megan Infante MD Primary Care Provider [phone] Sharmila Davis APRN PROPERTY ECONOMIST-C Unavailable Linda Block MD Unavailable [phone] Jeff Grace MD Unavailable Zaki Ortiz MD Unavailable [phone] Encounter Details Date Type Department Care Team (Latest Contact Info) Description 01/29/2022 2:32 PM CDT - 01/29/2022 11:59 PM CDT Hospital Encounter [facility] [address] [place] [address] Jacinto Vega MD [address] [place] [address] Discharge Disposition: Home or Self [...] 7 Day Supply 20 tablet 01/15/2022 2 hydrOXYzine 50 MG tablet Take 50 [...] st Contact Info) Description 09/25/2024 2:00 PM SURVEY PROJECT MANAGER Appointment [facility] [address] [place] [address] Zayra Powell, OCCUPATIONAL REHABILITATION AIDE [address] [facility] [place] [address] 10/16/2024 3:30 PM SURVEY PROJECT MANAGER Office Visit [facility] [address] [place] [phone] Brit Gonzáles MD [address] [place] [address] documented as of this encounter Procedures Procedure Name Priority Date/Time Associated Diagnosis Comments XR ANKLE RT M3V Routine 01/29/2022 3:02 PM CDT Other closed fracture of distal end of right fibula, initial encounter documented in this encounter Results * [...] as of this encounter Care Teams Cloth Examiner Relationship Specialty Start Date End Date Megan Infante MD [address] [facility] [place] [phone] PCP - General FAMILY PRACTICE 04/06/16 Piyush Pandey MD [place] [facility] CARDIOVASCULAR DISEASE 04/06/16 12/28/23 Sharmila Davis, REPAIR TECHNICIAN, PROPERTY ECONOMIST-C [address] [place] [address] NURSE PRACTITIONER 01/04/17 04/03/24 Linda Block MD [address] [facility] [address] [place] [phone] [place] [facility]ist CLINICAL CARDIAC ELECTROPHYSIOLOGY 02/08/17 04/12/23 Jeff Grace MD [address] [facility] [address] [phone] Consulting Physician INTERNAL MEDICINE 02/20/19 3 Zaki Ortiz MD [address] [facility] [address] [phone] Consulting Physician PULMONARY DISEASE 07/12/19 documented as of this encounter
--- OUTSIDE RECORDS SUMMARY | 2024-09-03 19:12 | XMS_ITS | Encounter Summary ---
Author Organization [facility] Address [address] [place] [address]. [place] [address] [place] [address] Care Team Providers Care Home Health Aide Name Role Phone Piyush Pandey MD Unavailable Unavailabl e Megan Infante MD Primary Care Provider [phone] Sharmila Davis APRN WEIGH AND CHARGE WORKER-C Unavailable Linda Block MD Unavailable [phone] Jeff Grace MD Unavailable Zaki Ortiz MD Unavailable [phone] Reason for Visit * Reason Onset Date Comments Question 06/19/2021 Encounter Details Date Type Department Care Team (Late st Contact Info) Description 06/19/2021 Telephone [facility] Multispecialty [address] [address] Damaso Barnes MD [address] [place] [address] Question Social History Tobacco Use Types Packs/Day Years [...] Exposure Response Date Recorded In the last month, have you been in contact with someone who was confirmed or suspected to have Coronavirus / COVID-19? No / Unsure 05/20/2021 6:50 PM CDT documented as of this encounter Progress Notes * Abril Boles LPN - 06/19/2021 2:34 PM CDT Amie called back and instructed that Sent order to DSM and scheduling department will call pt. With a date and time. Voices understanding. * Dayna Alvares - 06/19/2021 2:03 PM CDT Patient has orders for a sleep titration study. Amie from Dr. Infante's office asked if they are to schedule this sleep study, or will Cameron's office schedule it? Please call Amie back to advise [phone] documented in this encounter Plan of Treatment Upcoming Encounters Date Type Department Care Team (Late st Contact Info) Description 09/25/2024 2:00 PM DELIVERY DRIVER Appointment [facility] [address] [place] [address] Zayra Powell, CONCRETE MIXER OPERATOR [address] [place] [address] 10/16/2024 3:30 PM DELIVERY DRIVER Office Visit [facility] [address] [place] [phone] Brit Gonzáles MD [address] [place] [address] documented as of this encounter Visit Diagnoses Not on filedocumented in this encounter Care Teams Home Health Aide Relationship Specialty Start Date End Date Megan Infante MD [address] [place] [address] PCP - General FAMILY PRACTICE 04/06/16 Piyush Pandey MD [place] Poly[place] Bag Machine Operator CARDIOVASCULAR DISEASE 04/06/16 12/28/23 Sharmila Davis, PULMONARY FELLOW, WEIGH AND CHARGE WORKER-C [address] [facility] [address] [place] [phone] NURSE PRACTITIONER 01/04/17 04/03/24 Linda Block MD [address] [phone] [place] Polyethylene Bag Machine Operator CLINICAL CARDIAC ELECTROPHYSIOLOGY 02/08/17 04/12/23 Jeff Grace MD [address] [phone] Consulting Physician INTERNAL MEDICINE 02/20/19 3 Zaki Ortiz MD [address] [phone] Consulting Physician PULMONARY DISEASE 07/12/19 documented as of this encounter
--- OUTSIDE RECORDS SUMMARY | 2024-09-03 19:12 | XMS_ITS | Encounter Summary ---
Author Organization [facility] Address [address] [place] [address]. [place] [address] [place] [address] Care Team Providers Care Adjunct Spanish Instructor Name Role Phone Piyush Pandey MD Unavailable Unavailabl e Megan Infante MD Primary Care Provider [phone] Sharmila Davis APRN CROWN ATTACHER-C Unavailable [phone] Linda Block MD Unavailable [phone] Jeff Grace MD Unavailable Zaki Ortiz MD Unavailable [phone] Encounter Details Date Type Department Care Team (Latest Contact Info) Description 12/15/2021 Travel Social History Tobacco Use Types Packs/Day [...] st Contact Info) Description 09/25/2024 2:00 PM FISHER [address]FISH Appointment [facility] [address] [place], [place] [phone] Zayra Powell, LEAD PRINTER [address] [place] [address] 10/16/2024 3:30 PM FISHER SWORDFISH Office Visit [facility] [facility] [address] [place] [phone] Brit Gonzáles MD [address] [place], [place] [phone] documented as of this encounter Visit Diagnoses Not on filedocumented in this encounter Additional Health Concerns Assessment Noted Time PHQ-9 Depression Total Score: 0 12/02/19 22 1:18 PM CDT documented as of this encounter Care Teams Adjunct Spanish Instructor Relationship Specialty Start Date End Date Megan Infante MD [address] [place] [place] [phone] PCP - General FAMILY PRACTICE 04/06/16 Piyush Pandey MD [place] Apple Picker CARDIOVASCULAR DISEASE 04/06/16 12/28/23 Sharmila Davis, PROGRAM ARRANGER, CROWN ATTACHER-C 619 [facility] 47 [place] [phone] NURSE PRACTITIONER 01/04/17 04/03/24 Linda Block MD 619 [facility] 47 [place] [phone] [place] Apple Picker CLINICAL CARDIAC ELECTROPHYSIOLOGY 02/08/17 04/12/23 Jeff Grace MD 619 [facility] [address] [phone] Consulting Physician INTERNAL MEDICINE 02/20/19 3 Zaki Ortiz MD [address] [facility] [address] [place] [phone] Consulting Physician PULMONARY DISEASE 07/12/19 documented as of this encounter
--- OUTSIDE RECORDS SUMMARY | 2024-09-03 19:12 | XMS_ITS | Encounter Summary ---
Author Organization [facility] Address [address] [place] [address]. [place] [address] [place] [address] Care Team Providers Care Mechanical Door Repairer Name Role Phone Piyush Pandey MD Unavailable Unavailabl e Megan Infante MD Primary Care Provider [phone] Sharmila Davis APRN RETAIL SALES ASSOCIATE-C Unavailable [phone] Linda Block MD Unavailable [phone] Jeff Grace MD Unavailable Zaki Ortiz MD Unavailable [phone] Encounter Details Date Type Department Care Team (Latest Contact Info) Description 11/25/2021 Travel Social History Tobacco Use Types Packs/Day [...] Contact Info) Description 09/25/2024 2:00 PM ELECTRICAL LINEMAN Appointment [facility] [address] [place] [address] Zayra Powell, PEER SUPPORT SPECIALIST [address] [place], [place] [phone] 10/16/2024 3:30 PM ELECTRICAL LINEMAN Office Visit [facility] [address] [place] [phone] Brit Gonzáles MD [address] [place], [place] [phone] documented as of this encounter Visit Diagnoses Not on filedocumented in this encounter Care Teams Mechanical Door Repairer Relationship Specialty Start Date End Date Megan Infante MD [address] [place] [address] PCP - General FAMILY PRACTICE 04/06/16 Piyush Pandey MD [place] Entry Level Automotive Technician CARDIOVASCULAR DISEASE 04/06/16 12/28/23 Sharmila Davis APRN, RETAIL SALES ASSOCIATE-C 619 [facility] 47 [place] [phone] NURSE PRACTITIONER 01/04/17 04/03/24 Linda Block MD 619 [facility] [address] [place] [phone] [place] Entry Level Automotive Technician CLINICAL CARDIAC ELECTROPHYSIOLOGY 02/08/17 04/12/23 Jeff Grace MD 6[address] [facility] [address] [place] [phone] Consulting Physician INTERNAL MEDICINE 02/20/19 3 Zaki Ortiz MD [address] [place] [phone] Consulting Physician PULMONARY DISEASE 07/12/19 documented as of this encounter
--- OUTSIDE RECORDS SUMMARY | 2024-09-03 19:12 | XMS_ITS | Encounter Summary ---
Author Organization [facility] Address [facility]ly [facility] [place] [address] [place] [address] Care Team Providers Care Social Worker Health Services Name Role Phone Piyush Pandey MD Unavailable Unavailabl e Megan Infante MD Primary Care Provider [phone] Sharmila Davis APRN, LOCKSTITCH WAISTBAND SETTER-C Unavailable [phone] Linda Block MD Unavailable [phone] Jeff Grace MD Unavailable Zaki Ortiz MD Unavailable [phone] Reason for Visit * Reason Onset Date Comments Lab Results 01/02/2022 Encounter Details Date Type Department Care Team (Late st Contact Info) Description 01/02/2022 Telephone [facility] [address] [place] [address] Sharmila Davis APRN, LOCKSTITCH WAISTBAND SETTER-C [address] [facility] [address] [place] [address] Lab Results Social History Tobacco Use Types Packs/Day Years [...] Notes * Marcella Freitas RN - 01/02/2022 11:52 AM CDT Phoned patient, given instructions for starting metolazone and need for lab testing on Wednesday. Expressed understanding. Phoned Amie, made aware of above recommendations * Sharmila Davis APRN, LOCKSTITCH WAISTBAND SETTER-C - 01/02/2022 11:38 AM CDT Let's keep furosemide at current dose and add 2.5 metolazone PO daily 30 minutes prior to first furosemide dose. He can take today's metolazone when he obtains the medication. BMP on Wednesday with a follow up call to check on weight and symptoms. * Marcella Freitas RN - 01/02/2022 11:08 AM CDT Received a fax with BMP results dated 12/31/21, from Dr. Ballard office with note as follows: pleasereview- kidney function worse and taking 2- 40 mg tabs of lasix twice a day- legs are tight and weeping. Lab results abstracted into [employer] Will message Sharmila Davis NP for recommendations On 12/19/21- documentation from Sharmila- will try one more week on the higher dose furosemide and recheck bmp next week. documented in this encounter Plan of Treatment Upcoming Encounters Date Type Department Care Team (Late st Contact Info) Description 09/25/2024 2:00 PM TUMBLER MACHINE OPERATOR Appointment [facility] [address] [place] [address] Zayra Powell, VOICE STUDIES DIRECTOR [address] [place], [place] [phone] 10/16/2024 3:30 PM TUMBLER MACHINE OPERATOR Office Visit [facility] [address] [place] [address] Brit Gonzáles MD [address] [place] [address] documented as of this encounter Visit Diagnoses Diagnosis assisted use of drug- Primary Encounter for long-term (current) use of other medications Shortness of breath Leg edema Edema documented in this encounter Additional Health Concerns Assessment Noted Time PHQ-9 Depression Total Score: 0 12/02/19 22 1:18 PM CDT documented as of this encounter Care Teams Social Worker Health Services Relationship Specialty Start Date End Date Megan Infante MD [address] [place] [phone] PCP - General FAMILY PRACTICE 04/06/16 Piyush Pandey MD [place] Special Education Preschool Teacher CARDIOVASCULAR DISEASE 04/06/16 12/28/23 Sharmila Davis APRN, LOCKSTITCH WAISTBAND SETTER-C 619 [facility] [address] [place] [address] NURSE PRACTITIONER 01/04/17 04/03/24 Linda Block MD 619 [facility] [address] [place] [address] [place] Special Education Preschool Teacher CLINICAL CARDIAC ELECTROPHYSIOLOGY 02/08/17 04/12/23 Jeff Grace MD [address]19 [facility] [address] [place] [phone] Consulting Physician INTERNAL MEDICINE 02/20/19 3 Zaki Ortiz MD [address] [place] [phone] Consulting Physician PULMONARY DISEASE 07/12/19 documented as of this encounter
--- OUTSIDE RECORDS SUMMARY | 2024-09-03 19:12 | XMS_ITS | Encounter Summary ---
Author Organization [facility] Address Formerly [facility] [place] [address] [place] [address] Care Team Providers Care Employment Assistant Name Role Phone Piyush Pandey MD Unavailable Unavailabl e Megan Infante MD Primary Care Provider [phone] Sharmila Davis APRN RN PRIOR AUTHORIZATION-C Unavailable Linda Block MD Unavailable [phone] Jeff Grace MD Unavailable Zaki Ortiz MD Unavailable [phone] Reason for Visit * Auth/Cert Specialty Diagnoses / Procedures Referred By Yung sequeira Referred To Contact Diagnoses Dysphagia Encounter for screening colonoscopy DYSPHAGIA / SCREENING Procedures UPPER GI ENDOSCOPY,BIOPSY COLONOSCOPY,DIAGNOSTIC EGD WITH BIOPSY COLONOSCOPY Referral ID Status Reason Start Date Expiration Date Visits Re quested Visits Authorized [id number] 1 1 Encounter Details Date Type Department Care Team (Late st Contact Info) Description 01/27/2022 9:04 AM CDT - 01/27/2022 9:[address] [facility] [address] [place] [address] Gloria Navarro MD [address] [place] [address] EGD WITH BIOPSIES AND DILATION Surgery Details Date/Time Status Location OR Service Patient Class Case Class Case Type Trauma Case? 01/27/2022 9:04 AM Posted [facility] OR Endo Gastroenterology Short Stay/Outpa tient Surgery No Panel 1 Procedure LRB Anes Op Region Wound Class Comments EGD WITH BIOPSIES AND DILATION N/A Monitor Anesthesia Care Clean Contaminated 44,48,52 COLONOSCOPY WITH COLD SNARE POLYPECTOMY N/A Monitor Anesthesia Care Colon Clean Contaminated Surgeon Surgeon Role Service Panel Gloria Navarro MD Primary Gastroenterology 1 Case Notes VACCINATED. PCR NEG. documented in this encounter Social History Tobacco Use Types Packs/Day Years [...] Sign Reading Time Taken Comments Blood Pressure 145/71 01/27/2022 8:05 AM CDT Pulse 70 01/27/2022 8:05 AM CDT Temperature 35.6 ??C (96.1 ??F) 01/27/2022 8:05 AM CD T Respiratory Rate 16 01/27/2022 8:05 AM CDT Oxygen Saturation 96% 01/27/2022 8:05 AM CDT Inhaled Oxygen Concentration - - Weight 99.8 kg (220 lb) 01/20/2022 1:16 PM CDT Height 170.2 cm (5' 7 ) 01/20/2022 1:16 PM CDT Body Mass Index 34.46 01/20/2022 1:16 PM CDT documented in this encounter Discharge Instructions * Attachments The following attachments cannot be sent through Care Everywhere. * Moderate Sedation in Adults Discharge Instructions (Egyptian) * Esophageal Dilation (Egyptian) * Upper GI Endoscopy Discharge Instructions (Egyptian) * Colon Polypectomy Discharge Instructions (Egyptian) documented in this encounter Medications at Time [...] by mouth as needed for Constipation. ??? Spstjfcgoxz-Dmpoxlzqj-Ivmpcs 100-62.5-25 MCG/INH AEROSOL POWDER, BREATH ACTIVATED Inhale [...] (Incomplete) performed by Gloria [facility]arro MD at [facility] [...] NO PATIENT IN ICU NO RESIDENT OF [facility] NO IMPRESSION: Patient Active Problem List Diagnosis ??? S/P ablation of atrial fibrillation ??? LV dysfunction ??? Essential hypertension ??? Mixed hyperlipidemia ??? Diabetes mellitus, type II (CMS/HCC) ??? 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 COPD (chronic [...] st Contact Info) Description 09/25/2024 2:00 PM CLOTH SHRINKING TESTER Appointment [facility] [address] [place] [address] Zayra Powell, PRINTER REPAIR TECHNICIAN [address] [place] [address] 10/16/2024 3:30 PM CLOTH SHRINKING TESTER Office Visit [facility] [address] [place] [address] Brit Gonzáles MD [address] [place], [place] [phone] documented as of this encounter Procedures Procedure [...] DESCRIPTION GASTRIC BIOPSY 01/27/2022 9:55 AM CDT [facility] SPECIAL REQUESTS NO SPECIAL REQUEST 01/27/2022 9:55 AM CDT [facility] DIRECT EXAM PRESUMPTIVE NEGATIVE FOR H. PYLORI 01/28/2022 10:18 AM CDT [facility] Tissue specimen (specimen) GASTRIC BIOPSY SPECIMEN / Unknown 01/27/2022 9:21 AM CDT Gloria Navarro MD MICROBIOLOGY - GENERAL ORDERA BLES Final Result [facility] [address] [place] [address], * Colonoscopy (01/27/2022 6:48 AM CDT) Gloria Navarro MD GI PROCEDURE ORDERABLES Final Result * ENDOSCOPY (01/27/2022 6:48 AM CDT) Gloria Navarro MD SCANNING Final Result * Pathology (01/27/2022 12:00 AM CDT) PATHOLOGY [facility] ? Department of Laboratory Medicine ?[address] [facility] ?[place] [address] ? , extension [phone] ? Pathology Report ? Surgical Pathology Report Name: OBIE SIMS ?Specimen #: [id number] Age: 12 1955 (Age: 66) ? Location: [facility] Sex: M ?Procedure Date: 01/27/2022 Hospital #: [id number] ?Date Received: 01/27/2022 Date Reported: 01/28/2022 Provider: [...] Electronically Signed Out ? Taye Martinez MD-PhD [facility] Tissue specimen (specimen) DUODENAL STRUCTURE / Unknown 01/27/2022 9:20 AM CDT Tissue specimen (specimen) STOMACH STRUCTURE / Unknown 01/27/2022 9:22 AM CDT Tissue specimen (specimen) COLON STRUCTURE / Unknown 01/27/2022 9:41 AM CDT us Gloria Navarro MD PATHOLOGY/CYTOLOGY ORDERABLES Final Result [facility] [address] [place] [address], [id number] documented in this encounter Visit Diagnoses Diagnosis Dysphagia Dysphagia, unspecified Encounter for screening colonoscopy Special screening for malignant neoplasms, colon documented in this encounter Administered Medications Inactive [...] documented as of this encounter Care Teams Employment Assistant Relationship Specialty Start Date End Date Megan Infante MD [address] [place] [address] PCP - General FAMILY PRACTICE 04/06/16 Piyush Pandey MD [facility] Office Coordinator CARDIOVASCULAR DISEASE 04/06/16 12/28/23 Sharmila Davis APRN, RN PRIOR AUTHORIZATION-C [address] [phone] NURSE PRACTITIONER 01/04/17 04/03/24 Linda Block MD [address] [facility] [address] [address] [facility] Office Coordinator CLINICAL CARDIAC ELECTROPHYSIOLOGY 02/08/17 04/12/23 Jeff Grace MD [address] [address] Consulting Physician INTERNAL MEDICINE 02/20/19 3 Zaki Ortiz MD [address] [phone] Consulting Physician PULMONARY DISEASE 07/12/19 documented as of this encounter
--- OUTSIDE RECORDS SUMMARY | 2024-09-03 19:12 | XMS_ITS | Encounter Summary ---
Author Organization [facility] Address [address] [place] [address]. [place] [address] [place] [address] Care Team Providers Care Milk House Worker Name Role Phone Piyush Pandey MD Unavailable Unavailabl e Megan Infante MD Primary Care Provider [phone] Sharmila Davis APRN TYPEWRITER REPAIRER-C Unavailable [phone] Linda Block MD Unavailable [phone] Jeff Grace MD Unavailable Zaki Ortiz MD Unavailable [phone] Reason for Visit * Reason Comments Image (SCAN) Encounter Details Date Type Department Care Team (Late Contact Info) Description 01/31/2022 Scan [facility] [address] [facility] [place] [address] Scanned, Documents Image (SCAN) Social History Tobacco Use Types Packs/Day [...] st Contact Info) Description 09/25/2024 2:00 PM OB/GYN Appointment [facility] [address] [place] [address] Zayra Powell FNP [address] [place] [id number] 10/16/2024 3:30 PM OB/GYN Office Visit [facility] [address] [place] [address] Brit Gonzáles MD [address] [place], [place] [address] documented as of this encounter Procedures Procedure Name Priority Date/Time Associated Diagnosis Comments IMAGE GENERIC Routine 01/31/2022 12:00 AM CDT documented in this encounter Results * IMAGE STUDY (01/31/2022 12:00 AM CDT) Anatomical Region Laterality Modality Other 01/31/2022 us Documents Scanned SCANNING Final Result documented in this encounter Visit Diagnoses Not on filedocumented in this encounter Additional Health Concerns Assessment Noted Time PHQ-9 Depression Total Score: 0 12/02/19 22 1:18 PM CDT documented as of this encounter Care Teams Milk House Worker Relationship Specialty Start Date End Date Megan Infante MD [address] [place] [address] PCP - General FAMILY PRACTICE 04/06/16 Piyush Pandey MD [place] [employer] Inspector CARDIOVASCULAR DISEASE 04/06/16 12/28/23 Sharmila Davis APRN, TYPEWRITER REPAIRER-C [address] [facility] [address] [place] [phone] NURSE PRACTITIONER 01/04/17 04/03/24 Linda Block MD [address] [phone] [place] [employer] Inspector CLINICAL CARDIAC ELECTROPHYSIOLOGY 02/08/17 04/12/23 Jeff Grace MD [address] [address] Consulting Physician INTERNAL MEDICINE 02/20/19 3 Zaki Ortiz MD [address] [address] Consulting Physician PULMONARY DISEASE 07/12/19 documented as of this encounter
--- OUTSIDE RECORDS SUMMARY | 2024-09-03 19:12 | XMS_ITS | Encounter Summary ---
Author Organization [facility] Address [address] [place] [address]. [place] [address] [place] [address] Care Team Providers Care Perforator Name Role Phone Piyush Pandey MD Unavailable Unavailabl e Megan Infante MD Primary Care Provider [phone] Sharmila Davis APRN, GUEST ROOM ATTENDANT-C Unavailable [phone] Linda Block MD Unavailable [phone] Jeff Grace MD Unavailable Zaki Ortiz MD Unavailable [phone] Reason for Visit * Reason Onset Date Comments Results 12/19/2021 Encounter Details Date Type Department Care Team ([facility] st Contact Info) Description 12/19/2021 Telephone [facility] [address] [place] [address] Sharmila Davis APRN, GUEST ROOM ATTENDANT-C [address] [facility] [address] [place] [address] Results Social History Tobacco Use Types Packs/Day [...] as of this encounter Progress Notes * Sharmila Davis APRN, GUEST ROOM ATTENDANT-C - 12/19/2021 4:36 PM CDT Spoke with Mendez. His BMP revealed an increase in creatinine. He is feeling better with the higher dose of furosemide. His BNP was elevated. We will try one more week on the higher dose furosemide andrerebeccack a BMP next week. He v/u. documented in this encounter Plan of Treatment Upcoming Encounters Date Type Department Care Team (Late st Contact Info) Description 09/25/2024 2:00 PM BANKER MASON Appointment [facility] [address] [place] [address] Zayra Powell, [facility] [address] [place] [address] 10/16/2024 3:30 PM BANKER [place]ON Office Visit [facility] [address] [place] [phone] Brit Gonzáles MD [address] [place] [address] documented as of this encounter Results * [...] AMER. 37 <=90 12/19/2021 Sharmila Davis APRN, GUEST ROOM ATTENDANT-C LABORATORY Final Result documented in this encounter Visit Diagnoses Diagnosis porcelain finish sprayer use of drug- Primary Encounter for long-term (current) use of other medications documented in this encounter Additional Health Concerns Assessment Noted Time PHQ-9 Depression Total Score: 0 12/02/19 22 1:18 PM CDT documented as of this encounter Care Teams Perforator Relationship Specialty Start Date End Date Megan Infante MD [address] [place] [address] PCP - General FAMILY PRACTICE 04/06/16 Piyush Pandey MD [place] Head Rigger CARDIOVASCULAR DISEASE 04/06/16 12/28/23 Sharmila Davis APRN, GUEST ROOM ATTENDANT-C [address] [facility] [address] [place] [phone] NURSE PRACTITIONER 01/04/17 04/03/24 Linda Block MD [address] [facility] [address] [place] [phone] [place] [employer] CLINICAL CARDIAC ELECTROPHYSIOLOGY 02/08/17 04/12/23 Jeff Grace MD [address] [facility] [address] [place] [phone] Consulting Physician INTERNAL MEDICINE 02/20/19 3 Zaki Ortiz MD [address] [facility] [phone] Consulting Physician PULMONARY DISEASE 07/12/19 documented as of this encounter
--- OUTSIDE RECORDS SUMMARY | 2024-09-03 19:12 | XMS_ITS | Encounter Summary ---
Author Organization [facility] Address [facility] [place] [address] [place] [address] Care Team Providers Care Referral Coordinator Name Role Phone Piyush Pandey MD Unavailable Unavailabl e Megan Infante MD Primary Care Provider [phone] Sharmila Davis APRN EQUIPMENT OPERAT0R-C Unavailable Linda Block MD Unavailable [phone] Jeff Grace MD Unavailable Zaki Ortiz MD Unavailable [phone] Reason for Visit * Auth/Cert Specialty Diagnoses / Procedures Referred By Yung sequeira Referred To Contact Diagnoses Dysphagia Encounter for screening colonoscopy DYSPHAGIA / SCREENING Procedures UPPER GI ENDOSCOPY,BIOPSY COLONOSCOPY,DIAGNOSTIC EGD WITH BIOPSY COLONOSCOPY Referral ID Status Reason Start Date Expiration Date Visits Re quested Visits Authorized [id number] 1 1 Encounter Details Date Type Department Care Team (Late st Contact Info) Description 01/27/2022 9:13 AM CDT Anesthesia Event [address] [place] [address] Jaya Eastman MD [facility] [place] [address] Anesthesia Record Procedure Summary Procedure Name Responsible Anesthesiologist Anesthesia Start Time Anesthesia Stop Time EGD WITH BIOPSIES AND DILATION Jaya Eastman MD 01/27/22 0913 01/27/22 0951 Events Date Time Event Comment 01/27/2022 0855 0855 AN Anesthesia Prepped 0913 An Start Patient ID and consent checked and patient reassessed. 0913 An Start Data 0916 Nasal Cannula Applied 0916 AN Immediate Reassess The pa tient was reevaluated immediately before sedation or regional anesthesia. 0916 Anesthesia Ready 0947 an stop data 0951 Post Anesthetic Care Handoff I completed my handoff to the receiving nurse during which we: 1. Identified the patient 2. Identified the responsible provider 3. Reviewed the pertinent medical history 4. Discussed the surgical course 5. Reviewed intra-op anesthesia management and issues during anesthesia 6. Set expectations for post-procedure period 7. Allowed opportunity for questions and acknowledgement of understanding. 0951 An Stop Meds Name Total propofol (DIPRIVAN) 500 mg/50 mL injecti on 389.22 mg propofol (DIPRIVAN) 500 mg/50 mL IV bolu s from infusion 100 mg lidocaine (XYLOCAINE) 1% injection 10 mL ePHEDrine injection 30 mg sodium chloride 0.9% infusion 601 mL * Agents Name Ancillary O2 * Blood No blood administrations on file. Lines, Drains, and Airways Type Details Placement Removal Peripheral IV Placement Date: 03/13; Placement Time: 08; Placed Outside of This Facility?: No; Size: 20 G; Orientation: Left; Location: Antecubital; Site Prep: Chlorhexidine; Inserted By: Iza MORRISSEY; Insertion attempts: 1; Ultrasound-guided Placement?: No; Patient Tolerance: Tolerated well; Removal Date: 01/27/22; Removal Time: 1032; Removal Reason: Patient Discharged 01/27/22 0811 by Casandra Weiss RN 01/27/22 1032 by Iza Jordan RN documented in this encounter Social History Tobacco [...] AM CDT documented as of this encounter OR Notes * Anesthesia Postprocedure Evaluation - Jaya Eastman MD - 01/27/2022 11:21 AM CDT Anesthesia Post-op Note Mendez Lay Procedure(s): EGD WITH BIOPSIES AND DILATION (N/A ) COLONOSCOPY WITH COLD SNARE POLYPECTOMY (N/A Colon) Anesthesia type: MAC Vitals: 01/27/22 1033 BP: 127/73 Vitals: 01/27/22 1033 Pulse: 65 Vitals: 01/27/22 1033 Resp: 16 Vitals: 01/27/22 1033 Temp: 36.4 ??C Vitals: 01/27/22 1033 SpO2: 99% Patient Location: Phase II/Outpatient Level of Consciousness: awake, alert and oriented Pain Management: adequate analgesia Airway Patency: patent Respiratory Status: spontaneous ventilation and acceptable Cardiovascular Status: acceptable, stable and hemodynamically stable Post-Op Nausea: none Postoperative Hydration: euvolemic There were no known complications for this encounter. * Anesthesia Preprocedure Evaluation - Jaya Eastman MD - 01/22/2022 1:53 PM CDT Anesthesia ROS/MED History Reviewed: Patient summary , Family history anesthesia, Anesthesia history , Medications , Labs Pre-Anesthetic State: alert, awake and responds appropriately Pulmonary (+) COPD (uses nightime O2. but othwerise mild. No hospitalizations, and uses inhalers 2-3x per month. 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 Mild concentric left ventricular hypertrophy. The left ventricular systolic function is normal. Estimated left ventricular ejection fraction is 55%. Biatrial enlargement with spontaneous contrast. No overt thrombus or PFO. The thoracic aorta is moderately atherosclerotic. Trace tricuspid regurgitation. Unable to reliably quantitate pulmonary systolic pressure. Cardiol 12/15/21 Mr. Lay is a pleasant 66-year-old male seen in [...] hypertension, hyperlipidemia, type II diabetes, and COPD. Mr. Lay appears to have an element of fluid [...] may always proceed to the emergency department. ?? I have recommended the following to Mr. Lay: 1. Dyspnea. I have instructed him to [...] continue his aspirin, beta-kim, and statin. 3. ??Aortic Valve Replacement. ??His last echocardiogram demonstrated a well- functioning bioprosthetic aortic valve replacement. ??He will continue his low- dose aspirin. ??SBE antibiotic prophylaxis is recommended prior to any dental procedures. We will repeat an echocardiogram this summer. 4. ??Atrial Fibrillation. ??His heart rate is mildly elevated in the office today. He will continuecarvedilol. ??He is anticoagulated with warfarin. Physical Evaluation Airway Mallampati: III TM Distance: >3 FB Neck ROM: normal Dental No notable dental history Pulmonary Pulmonary exam normal Breath sounds clear to auscultation Cardiovascular Rhythm: regular Rate: normal Cardiovascular exam normal Anesthesia Plan ASA 4 Intravenous Induction Anesthesia type: MAC Plan for Airway: nasal cannula/simple face mask Plan for Post-op Pain Plan: as per surgeon, oral pain medication and IV analgesics Informed Consent Anesthetic plan and risks discussed with patient of whom consent was obtained. . documented in this encounter Plan of Treatment Upcoming Encounters Date Type Department Care Team (Late st Contact Info) Description 09/25/2024 2:00 [address] Appoint[address] [facility] [address] [place] [address] Zayra Powell, [facility] [address] [place] [address] 10/16/2024 3:30 PM FORK OPERATOR Office Visit [facility] [place] [address] Brit Gonzáles MD [address] [place] [address] documented as of this encounter Visit Diagnoses Not on filedocumented in this encounter Administered Medications Inactive Administered Medications - up to 3 most recent administrations Medication Order MAR Action Action Date Dose Rate Site ePHEDrine injection Intravenous, PRN, Starting on Wed01/27/22 at 0928, Until Wed01/27/22 at 0951, Anesthesia Intra-Op Given 01/27/2022 9:34 AM CDT 15 mg Given 01/27/2022 9:28 AM CDT 15 mg lidocaine (XYLOCAINE) 1 % injection SOLN Intravenous, PRN, Starting on Wed01/27/22 at 0916, Until Wed01/27/22 at 0951, Anesthesia Intra-Op Given 01/27/2022 9:16 AM CDT 10 mLs propofol (DIPRIVAN) 500 mg/50 mL bolus Intravenous, PRN, Starting on Wed01/27/22 at 0917, Until Wed01/27/22 at 0951, Anesthesia Intra-Op Given 01/27/2022 9:21 AM CDT 50 mg Given 01/27/2022 9:17 AM CDT 50 mg propofol (DIPRIVAN) IV bolus Intravenous, Continuous PRN, Starting on Wed01/27/22 at 0916, Until Wed01/27/22 at 0951, Anesthesia Intra-Op New Bag 01/27/2022 9:16 AM CDT 150 mcg/kg/min 89.82 mL/hr sodium chloride 0.9% infusion at 10 mL/hr, Intravenous, Continuous, Starting on Wed01/27/22 at 0830, Until Wed01/27/22 at 1247, Infuse at TKO rate. Use mini-drip tubing for ESRD patients., Pre-Op Continued by Anesthesia 01/27/2022 9:13 AM CDT 10 mL/hr New Bag 01/27/2022 8:12 AM CDT 10 mL/hr documented in this encounter Additional Health Concerns Assessment Noted Time PHQ-9 Depression Total Score: 0 12/02/19 22 1:18 PM CDT documented as of this encounter Care Teams Referral Coordinator Relationship Specialty Start Date End Date Megan Infante MD [address] [place] [address] PCP - General FAMILY PRACTICE 04/06/16 Piyush Pandey MD [place] [employer] Banking Services Clerk CARDIOVASCULAR DISEASE 04/06/16 12/28/23 Sharmila Davis, PIT HAND, EQUIPMENT OPERAT0R-C [address] [facility] [address] [place] [phone] NURSE PRACTITIONER 01/04/17 04/03/24 Linda Block MD [address] [phone] [place] [employer] Banking Services Clerk CLINICAL CARDIAC ELECTROPHYSIOLOGY 02/08/17 04/12/23 Jeff Grace MD [address] [facility] [address] [phone] Consulting Physician INTERNAL MEDICINE 02/20/19 3 Zaki Ortiz MD [address] [facility] [address] [place] [phone] Consulting Physician PULMONARY DISEASE 07/12/19 documented as of this encounter
--- OUTSIDE RECORDS SUMMARY | 2024-09-03 19:12 | XMS_ITS | Encounter Summary ---
Author Organization [facility] Address [facility] [place] [address] [place] [address] Care Team Providers Care Manager Union Name Role Phone Piyush Pandey MD Unavailable Unavailabl e Megan Infante MD Primary Care Provider [phone] Sharmila Davis APRN AIR DEFENSE CONTROL OFFICER-C Unavailable [phone] Linda Block MD Unavailable [phone] Jeff Grace MD Unavailable Zaki Ortiz MD Unavailable [phone] Reason for Visit * Reason Comments Fracture CLOSED FRACTURE OF D ISTAL RIGHT FIBULA (DOI: 12/28/2021) Encounter Details Date Type Department Care Team (Latest Contact Info) Description 01/29/2022 2:45 PM CDT Office Visit [facility] [place] [id number] Jacinto Hamilton MD [address] [place], [place] [id number] Fracture (CLOSED FRACTURE OF DISTAL RIGHT FIBULA (DOI: 12/28/2021)) Social History Tobacco Use Types [...] - Inhaled Oxygen Concentration - - Weight 99.8 kg (220 lb) 01/29/2022 3:04 PM CDT Height 170.2 cm (5' 7 ) 01/29/2022 3:04 PM CDT Body Mass Index 34.46 01/29/2022 3:04 PM CDT documented in this encounter Functional Status documented as of this encounter Mental Status * Question Answer Entry Date Author Status Because of a physical, mental, or emotional condition, do you have serious difficulty concentrating, remembering, or making decisions? No 02/01/2022 5:00 AM CDT Sona Lan RN A ctive documented in this encounter Progress Notes * Jacinto Hamilton MD - 01/29/2022 2:45 PM CDT Chief Complaint: Fracture (CLOSED FRACTURE OF DISTAL RIGHT FIBULA (DOI: 12/28/2021)) History of Present Illness: Mendez Lay is a 66-year-old male who presents to the office for Fracture (CLOSED FRACTURE OF DISTAL RIGHT FIBULA (DOI: 12/28/2021)) Patient here for follow up RIGHT ankle fracture following an injury. He reports some pain that has gotten better on the lateral aspect of the RIGHT ankle. Pain is worse with prolonged ambulation. He does have some night time pain. He denies numbness or tingling. No swelling. He takes [place] for painonly at night with good relief, and Tylenol during the day with poor relief. He does use elevation when able. He states he has a CAM boot that he usually wears, but was unable to wear today due to having to drive himself here. He uses a cane for ambulation. He is retired. ROS: See HPI for pertinent positives Problem List: Patient Active Problem List Diagnosis ??? S/P ablation of atrial fibrillation ??? LV dysfunction ??? Essential hypertension ??? Mixed hyperlipidemia ??? Diabetes mellitus, type II (CMS/HCC) ??? Coronary artery disease involving yurok coronary artery of yurok heart without angina pectoris ??? COPD (chronic [...] right fibula with routine healing, subsequent encounter History: Past Medical History: Diagnosis Date ??? [...] (Incomplete) performed by Kilo Navarro MD at [facility] OR ??? COLONOSCOPY N/A 01/27/2022 COLONOSCOPY WITH COLD SNARE POLYPECTOMY performed by Kilo Navarro MD at [facility] OR ??? HIP ARTHROPLASTY Left [...] needed for Constipation., Disp: , Rfl: ??? enoxaparin 40 MG/0.4ML Solution Prefilled Syringe, , Disp: , Rfl: ??? Hqhijfjbrno-Vshmcgxtx-Nbzqdj 100-62.5-25 MCG/INH AEROSOL POWDER, BREATH ACTIVATED, Inhale [...] Supply, Disp: 20 tablet, Rfl: 0 ??? hydrOXYzine 50 MG tablet, Take 50 [...] Known Allergies Objective: Body mass index is 34.46 kg/m??. Last Recorded Weight 01/29/22 1504 Weight: 99.8 kg (220 lb) Physical exam: Constitutional: Alert and in no acute distress. Neurological: The patient was oriented to person, place, and time. Eyes: The sclera and conjunctiva were normal ENT: Hearing was normal. Neck: The appearance of the neck was normal. Cardiovascular: Normal pulses. Pulmonary: No respiratory distress. Skin: No injuries or skin lesion. Musculoskeletal: Mild right ankle swelling is present and he has restricted range of motion. He does have some tenderness laterally over the distal fibula Results: X-rays were reviewed and there is been no change in position. His mortise is symmetric. Not much evidence of healing Assessment: Encounter Diagnose(s) ICD-10-CM ICD-9-CM SNOMED CT(R) 1. Other closed fracture of distal end of right fibula with routine healing, subsequent encounter S82.831D V54.16 CLOSED FRACTURE OF DISTAL FIBULA Plan: Patient is diabetic so I expect it to take longer for healing to be completed. Have stressed the need to use the cam boot and I will see him back in a month and we will plan to start therapy then Follow up: Return in about 4 weeks (around 02/26/2022). JACINTO HAMILTON MD documented in this encounter Plan of Treatment Upcoming Encounters Date Type Department Care Team (Late st Contact Info) Description 09/25/2024 2:00 PM SWIMMING POOL INSTALLER Appointment [facility] [address] [place] [address] Zayra Powell, DYE AUTOMATION OPERATOR [address] [facility] [address] [place] [phone] 10/16/2024 3:30 PM SWIMMING POOL INSTALLER Office Visit [facility] [address] [place] [address] Brit Gonzáles MD [address] [place] [address] documented as of this encounter Visit Diagnoses Diagnosis Other closed fracture of distal end of right fibula with routine healing, subsequent encounter- Primary documented in this encounter Additional Health Concerns Assessment Noted Time PHQ-9 Depression Total Score: 0 12/02/19 22 1:18 PM CDT documented as of this encounter Care Teams Manager Union Relationship Specialty Start Date End Date Megan Infante MD [address] [place] [address] PCP - General FAMILY PRACTICE 04/06/16 Piyush Pandey MD [place] Water Maintenance Supervisor CARDIOVASCULAR DISEASE 04/06/16 12/28/23 Sharmila Davis APRN, AIR DEFENSE CONTROL OFFICER-C [address] [place] [address] [address] [place] [address] NURSE PRACTITIONER 01/04/17 04/03/24 Linda Block MD [address] [place] [phone] [place] Water Maintenance Supervisor CLINICAL CARDIAC ELECTROPHYSIOLOGY 02/08/17 04/12/23 Jeff Grace MD [address] [facility] [address] [place] [phone] Consulting Physician INTERNAL MEDICINE 02/20/19 3 Zaki Ortiz MD [address] [place] [address] Consulting Physician PULMONARY DISEASE 07/12/19 documented as of this encounter
--- OUTSIDE RECORDS SUMMARY | 2024-09-03 19:12 | XMS_ITS | Encounter Summary ---
Author Organization [facility] Address [facility] [place] [address] [place] [address] Care Team Providers Care Manager Of Planning Name Role Phone Piyush Pandey MD Unavailable Unavailabl e Megan Infante MD Primary Care Provider [phone] Sharmila Davis APRN, COOK HELPER FRUIT-C Unavailable Linda Block MD Unavailable [phone] Jeff Grace MD Unavailable Zaki Ortiz MD Unavailable [phone] Encounter Details Date Type Department Care Team (Late st Contact Info) Description 12/19/2021 Orders Only [facility] [address] [place] [address] Chris Nuñez, [employer] OFFICER Social History Tobacco Use Types Packs/Day Years [...] st Contact Info) Description 09/25/2024 2:00 PM PROCUREMENT OFFICER Appointment [facility] [address] [place] [address] Zayra Powell, STENCIL PRINTER [address] [place] [address] 10/16/2024 3:30 PM PROCUREMENT OFFICER Office Visit [facility] [address] [place] [address] Brit Gonzáles MD [address] [place] [address] documented as of this encounter Procedures Procedure Name Priority Date/Time Associated Diagnosis Comments PRO-BRAIN NATRIURETIC PEPTIDE Routine 12/19/2021 Shortness of breath BASIC METABOLIC PANEL Routine 12/19/2021 Shortness of breath documented in this encounter Results * PRO-BRAIN NATRIURETIC PEPTIDE (12/19/2021) Pathologist [facility] B TYPE NATRIURETIC PEPTIDE 1,617 12/19/2021 Sharmila Davis APRN, COOK HELPER FRUIT-C LABORATORY Final Result * (ABNORMAL) BASIC METABOLIC PANEL (12/19/2021) Pathologist [facility] SODIUM S/P/B 139 POTASSIUM S/P/B 4.5 CO2 30 CHLORIDE S/P/B 100 GLUCOSE 206 mg/dL CALCIUM S/P/B 9.1 BUN 30 CREATININE S/P/B 1.82(A) 0.7 - 1.3 EGFR NON-AFR. AMER. 37 <=90 12/19/2021 Sharmila Davis APRN, COOK HELPER FRUIT-C LABORATORY Final Result documented in this encounter Visit Diagnoses Diagnosis Shortness of breath documented in this encounter Additional Health Concerns Assessment Noted Time PHQ-9 Depression Total Score: 0 12/02/19 22 1:18 PM CDT documented as of this encounter Care Teams Manager Of Planning Relationship Specialty Start Date End Date Megan Infante MD [address] [place] [address] PCP - General FAMILY PRACTICE 04/06/16 Piyush Pandey MD [place] [employer] Car Supervisor Yard CARDIOVASCULAR DISEASE 04/06/16 12/28/23 Sharmila Davis APRN, COOK HELPER FRUIT-C [address] [place] [address] [place] [phone] NURSE PRACTITIONER 01/04/17 04/03/24 Linda Block MD [address] [address] [place] [employer] Car Supervisor Yard CLINICAL CARDIAC ELECTROPHYSIOLOGY 02/08/17 04/12/23 Jeff Grace MD [address] [address] Consulting Physician INTERNAL MEDICINE 02/20/19 3 Zaki Ortiz MD [address] [address] Consulting Physician PULMONARY DISEASE 07/12/19 documented as of this encounter
--- OUTSIDE RECORDS SUMMARY | 2024-09-03 19:12 | XMS_ITS | Encounter Summary ---
Author Organization [facility] Address [facility] [place] [address] [place] [address] Care Team Providers Care Internet And E Business Project Manager Name Role Phone Piyush Pandey MD Unavailable Unavailabl e Megan Infante MD Primary Care Provider [phone] Sharmila Davis APRN TOURIST CABIN KEEPER-C Unavailable [phone] Linda Block MD Unavailable [phone] Jeff Grace MD Unavailable Zaki Ortiz MD Unavailable [phone] Reason for Visit * Reason Onset Date Comments Follow Up Call 01/20/2022 Encounter Details Date Type Department Care Team (Late st Contact Info) Description 01/20/2022 Telephone [facility] [place] [phone] Keila Zhong RNFA Follow Up Call Social History Tobacco Use Types Packs/Day Years [...] as of this encounter Progress Notes * MARIELENA Young - 01/20/2022 9:59 AM CDT Patient did call and RN reviewed the below. RN advised to continue to monitor symptoms and to call with worsening symptoms. * MARIELENA Young - 01/20/2022 8:30 AM CDT Patient locates the pain over lateral aspect. He states that he discontinued the boot Wednesday and has been weight bearing as tolerated using the assistance of walker. He denies increased pain since discontinuing the CAM boot. Patient states that he lives alone and boot is challenging to wear. RN advised will review with provider and call back. RN reviewed with provider and he would like for patient to try to wear CAM boot in order to preventfuture injury. RN reinforced ice, elevation, and also explained the air pockets on boot again to patient for added comfort. Provider would like to continue current FU apt and have patient monitor/report changes. RN attempted contact to discuss, no answer left message asking for call back. * MARIELENA Young - 01/20/2022 8:30 AM CDT ----- Message from Marily Altman sent at 01/20/2022 7:11 AM CDT ----- Regarding: Boot causing pain Mendez called this morning stating that when he puts his boot on it hurts really bad. He has not beenwearing it, and just using his walker. documented in this encounter Plan of Treatment Upcoming Encounters Date Type Department Care Team (Late st Contact Info) Description 09/25/2024 2:00 PM HAND BOOTMAKER Appointment [facility] [address] [place] [address] Zayra Powell, VISUAL AID EXPERT [address] [place], [place] [phone] 10/16/2024 3:30 PM HAND BOOTMAKER Office Visit [facility] [address] [place] [address] Brit Gonzáles MD [address] [place] [address] documented as of this encounter Visit Diagnoses Not on filedocumented in this encounter Additional Health Concerns Assessment Noted Time PHQ-9 Depression Total Score: 0 12/02/19 22 1:18 PM CDT documented as of this encounter Care Teams Internet And E Business Project Manager Relationship Specialty Start Date End Date Megan Infante MD [address] [place] [address] PCP - General FAMILY PRACTICE 04/06/16 Piyush Pandey MD [place] Lead Neurodiagnostic Technologist CARDIOVASCULAR DISEASE 04/06/16 12/28/23 Sharmila Davis APRN, TOURIST CABIN KEEPER-C [address] [facility] [address] [place] [address] NURSE PRACTITIONER 01/04/17 04/03/24 Linda Block MD [address] [facility] [address] [place] [phone] [place]reat Lead Neurodiagnostic Technologist CLINICAL CARDIAC ELECTROPHYSIOLOGY 02/08/17 04/12/23 Jeff Grace MD [address] [facility] [address] [place] [phone] Consulting Physician INTERNAL MEDICINE 02/20/19 3 Zaki Ortiz MD [address] [place] [phone] Consulting Physician PULMONARY DISEASE 07/12/19 documented as of this encounter
--- OUTSIDE RECORDS SUMMARY | 2024-09-03 19:12 | XMS_ITS | Encounter Summary ---
Author Organization [facility] Address [address] [place] [address]. [place] [address] [place] [address] Care Team Providers Care Game Farm Helper Name Role Phone Piyush Pandey MD Unavailable Unavailabl e Megan Infante MD Primary Care Provider [phone] Sharmila Davis APRN, FUR FLOOR WORKER-C Unavailable Linda Block MD Unavailable [phone] Jeff Grace MD Unavailable Zaki Ortiz MD Unavailable [phone] Encounter Details Date Type Department Care Team (Late st Contact Info) Description 12/15/2021 Abstract [facility] [address] [place] [address] Sharmila Davis APRN, FUR FLOOR WORKER-C [address] [facility] [address] [place] [phone] Social History Tobacco Use Types Packs/Day Years [...] st Contact Info) Description 09/25/2024 2:00 PM KARDEX CLERK Appointment [facility] [address] [place] [address] Zayra Powell, [place] MARSHAL [address] [place] [address] 10/16/2024 3:30 PM KARDEX CLERK Office Visit [facility] [address] [place] [address] Brit Gonzáles MD [address] [place], [place] [phone] documented as of this encounter Procedures Procedure Name Priority Date/Time Associated Diagnosis Comments BASIC METABOLIC PANEL Routine 12/04/2021 documented in this encounter Results * (ABNORMAL) BASIC METABOLIC PANEL (12/04/2021) SODIUM S/P/B 143 136 - 145 POTASSIUM S/P/B 4.3 3.5 - 5.1 CO2 32 21 - 32 CHLORIDE S/P/B 103 98 - 108 GLUCOSE 146(A) 70 - 99 mg/dL CALCIUM S/P/B 8.7 8.5 - 10.1 BUN 24(A) 7 - 18 CREATININE S/P/B 1.66(A) 0.7 - 1.3 EGFR NON-AFR. AMER. 42 <=90 12/04/2021 us Doc [facility] Abstract LABORATORY Final Result documented in this encounter Visit Diagnoses Not on filedocumented in this encounter Additional Health Concerns Assessment Noted Time PHQ-9 Depression Total Score: 0 12/02/19 22 1:18 PM CDT documented as of this encounter Care Teams Game Farm Helper Relationship Specialty Start Date End Date Megan Infante MD [address] [place] [address] PCP - General FAMILY PRACTICE 04/06/16 Piyush Pandey MD [place] Fish Frog Or Oyster Farmer CARDIOVASCULAR DISEASE 04/06/16 12/28/23 Sharmila Davis APRN, FUR FLOOR WORKER-C [address] [facility] [address] [place] [phone] NURSE PRACTITIONER 01/04/17 04/03/24 Linda Block MD [address] [phone] [place] Fish Frog Or Oyster Farmer CLINICAL CARDIAC ELECTROPHYSIOLOGY 02/08/17 04/12/23 Jeff Grace MD [address] [phone] Consulting Physician INTERNAL MEDICINE 02/20/19 3 Zaki Ortiz MD [address] [phone] Consulting Physician PULMONARY DISEASE 07/12/19 documented as of this encounter
--- OUTSIDE RECORDS SUMMARY | 2024-09-03 19:12 | XMS_ITS | Encounter Summary ---
Author Organization [facility] Address [address] [place] [address]. [place] [address] [place] [address] Care Team Providers Care Mix House Operator Name Role Phone Piyush Pandey MD Unavailable Unavailabl e Megan Infante MD Primary Care Provider [phone] Sharmila Davis APRN REFRIGERATION LEAD-C Unavailable [phone] Linda Block MD Unavailable [phone] Jeff Grace MD Unavailable Zaki Ortiz MD Unavailable [phone] Encounter Details Date Type Department Care Team (Latest Contact Info) Description 01/20/2022 Travel Social History Tobacco Use Types Packs/Day [...] suspected to have Coronavirus/COVID-19? No / Unsure 01/20/2022 1:19 PM CDT documented as of this encounter Plan of Treatment Upcoming Encounters Date Type Department Care Team (Late st Contact Info) Description 09/25/2024 2:00 PM WOODWINDS TEACHER Appointment [facility] [address] [place], [place] [phone] Zayra Powell, WIND PROJECTS SUPERVISOR [address] [place] [address] 10/16/2024 3:30 PM WOODWINDS TEACHER Office Visit [facility] [phone] [place] [phone] Brit Gonzáles MD [address] [place], [place] [phone] documented as of this encounter Visit Diagnoses Not on filedocumented in this encounter Additional Health Concerns Assessment Noted Time PHQ-9 Depression Total Score: 0 12/02/19 22 1:18 PM CDT documented as of this encounter Care Teams Mix House Operator Relationship Specialty Start Date End Date Megan Infante MD [address] [facility] [place] [phone] PCP - General FAMILY PRACTICE 04/06/16 Piyush Pandey MD [place] Packaging Assembler CARDIOVASCULAR DISEASE 04/06/16 12/28/23 Shamrila Davis, MILK INSPECTOR, REFRIGERATION LEAD-C [address] [facility] [address] [place] [phone] NURSE PRACTITIONER 01/04/17 04/03/24 Linda Block MD [address] [facility] [address] [place] [phone] [place] Packaging Assembler CLINICAL CARDIAC ELECTROPHYSIOLOGY 02/08/17 04/12/23 Jeff Grace MD [address] [facility] [address] [phone] Consulting Physician INTERNAL MEDICINE 02/20/19 3 Zaki Ortiz MD [address] [facility] [address] [place] [phone] Consulting Physician PULMONARY DISEASE 07/12/19 documented as of this encounter
--- OUTSIDE RECORDS SUMMARY | 2024-09-03 19:13 | XMS_ITS | Encounter Summary ---
Author Organization [facility] - [facility] Address [facility] [place] [place] [address] [place] [address] Care Team Providers Care Trial Court Justice Name Role Phone Piyush Pandey MD Unavailable Unavailabl e Megan Infante MD Primary Care Provider [phone] Sharmila Davis APRN COOK CANDY-C Unavailable [phone] Linda Block MD Unavailable [phone] Jeff Grace MD Unavailable Zaki Ortiz MD Unavailable [phone] Reason for Referral * Sleep Lab (Routine) - Closed Specialty Diagnoses / Procedures Referred By Yung sequeira Referred To Contact Diagnoses Obstructive sleep apnea (adult) (pediatric) Procedures Limited Channel Unattended (Home Study) (G0399) Damaso Barnes MD [address] [place] [address] Phone: tel: fax: [address] [address] Phone: tel: Referral ID Status Reason Start Date Expiration Date Visits Re quested Visits Authorized [id number] Closed 02/27/2021 03/30/2022 1 1 Encounter Details Date Type Department Care Team (Late st Contact Info) Description 02/27/2021 Orders Only [facility] Medical [facility] [address] [place] [phone] Damaso Barnes MD [address] [place] [address] Social History Tobacco Use Types Packs/Day Years Used Date Smoking Tobacco: Former Smokeless Tobacco: Former Chew Alcohol Use Standard Drinks/Week Comments Yes 0 (1 standard drink = 0.6 oz pur e alcohol) 6 per week PHQ-2 Answer Date Recorded PHQ-2 [...] have Coronavirus / COVID-19? No / Unsure 02/18/2021 11:50 AM CDT documented as of this encounter Plan of Treatment Upcoming Encounters Date Type Department Care Team (Late st Contact Info) Description 09/25/2024 2:00 PM MAINTENANCE ASSISTANT Appointment [facility] [address] [place] [address] Zayra Powell, TRIPOLER [address] [place] [address] 10/16/2024 3:30 PM MAINTENANCE ASSISTANT Office Visit [facility] [address] [place] [phone] Brit Gonzáles MD [address] [place] [address] documented as of this encounter Results * Limited Channel Unattended (Home Study) (G0399) (05/20/2021 7:00 PM CDT) Narrative [facility] - 05/20/2021 7:00 PM CDT Damaso Barnes MD ? 06/16/2021 ??8:09 AM Mr. Lay is a 65-year-old patient was taken up for home sleep study because of symptoms of sleep apnea syndrome. ??He is 67 inches tall and weighs 205 pounds. ??BMI 32.2. Airflow at the mouth and nose was monitored on a continuous basis along with movements of the chest and the abdominal wall. ??Heart rate rhythm and pulse oximetry was also monitored continuously. ?? Information available is that the patient is on treatment for mood disorder, systemic hypertension and heart disease. The study is completed utilizing type III devices. Total duration of analysis is 524 minutes. During this time we identified 14 obstructive apneas. ??There are 26 central apneas. ??There are 21 hypopneas. ??AHI for the study is 10.0. Average oxygen saturation for the study is 91%. ??Desaturations are noted. ??Oxygen saturation of 48% was recorded even though pulse oximetry is not reliable below 70%. ??The patient spent about 32% of testing time with saturations below 90%. During the study the patient's heart rhythm showed sinus rhythm with self-limited sinus tachycardia. ??There are no pauses, there are no dysrhythmias. Discussion: The study is positive for sleep apnea syndrome. ??AHI is increased at 10. ??AHI is typically underestimated during a home sleep study. ??Hypoxic burden is noted for 32% of testing time and low saturation above 48% was recorded. Therapeutic alternatives at this stage would include avoidance of sedative drugs and alcohol, treatment of underlying hypothyroidism if present, weight loss program to bring this patient's BMI below 25, and evaluation of the upper airway for surgically treatable cause of airway obstruction. AHI is typically underestimated during a home sleep study. ??This patient meets criteria for CPAP therapy with AHI of 10.0 because he is on treatment for mood disorder, and on treatment for systemic hypertension and heart disease. Attended CPAP titration in the sleep center is recommended because of underlying heart disease and history of cardiac dysrhythmia. Final recommendations: Weight loss program is ideal for management of sleep apnea. Treat underlying hypothyroidism if present. CPAP titration study as suggested above. Final diagnosis: Obstructive sleep apnea G 47.33 Procedure Note Damaso aBrnes MD - 05/20/2021 7:00 PM CDT Mr. Lay is a 65-year-old patient was taken up for home sleep studybecause of symptoms of sleep apnea syndrome. He is 67 inches tall andweighs 205 pounds. BMI 32.2. Airflow at the mouth and nose was monitored on a continuous basis alongwith movements of the chest and the abdominal wall. Heart rate rhythm andpulse oximetry was also monitored continuously. Information available isthat the patient is on treatment for mood disorder, systemic hypertensionand heart disease. The study is completed utilizing type III devices. Total duration of analysis is 524 minutes. During this time we identified 14 obstructive apneas. There are 26central apneas. There are 21 hypopneas. AHI for the study is 10.0. Average oxygen saturation for the study is 91%. Desaturations are noted.Oxygen saturation of 48% was recorded even though pulse oximetry is notreliable below 70%. The patient spent about 32% of testing time withsaturations below 90%. During the study the patient's heart rhythm showed sinus rhythm withself-limited sinus tachycardia. There are no pauses, there are nodysrhythmias. Discussion: The study is positive for sleep apnea syndrome. AHI is increased at 10.AHI is typically underestimated during a home sleep study. Hypoxic burdenis noted for 32% of testing time and low saturation above 48% wasrecorded. Therapeutic alternatives at this stage would include avoidance of sedativedrugs and alcohol, treatment of underlying hypothyroidism if present,weight loss program to bring this patient's BMI below 25, and evaluationof the upper airway for surgically treatable cause of airwayobstruction. AHI is typically underestimated during a home sleep study. This patientmeets criteria for CPAP therapy with AHI of 10.0 because he is ontreatment for mood disorder, and on treatment for systemic hypertensionand heart disease. Attended CPAP titration in the sleep center is recommended because ofunderlying heart disease and history of cardiac dysrhythmia. Final recommendations: Weight loss program is ideal for management of sleep apnea. Treat underlying hypothyroidism if present. CPAP titration study as suggested above. Final diagnosis: Obstructive sleep apnea G 47.33 Damaso Barnes MD SLEEP CENTER ORDERABLES F inal Result [facility] [address] [place] [address], documented in this encounter Visit Diagnoses Diagnosis Obstructive sleep apnea (adult) (pediatric)- Primary Chronic obstructive pulmonary disease, unspecified COPD type ([facility]) Obstructive sleep apnea (adult) (pediatric) documented in this encounter Care Teams Trial Court Justice Relationship Specialty Start Date End Date Megan Infante MD [address] [facility] [place] [address] PCP - General FAMILY PRACTICE 04/06/16 Piyush Pandey MD [place] Agency Manager CARDIOVASCULAR DISEASE 04/06/16 12/28/23 Sharmila Davis, MSWS, COOK CANDY-C [address] [facility] [address] [place] [address] NURSE PRACTITIONER 01/04/17 04/03/24 Linda Block MD [address] [facility] [address] [place] [address] [place] Agency Manager CLINICAL CARDIAC ELECTROPHYSIOLOGY 02/08/17 04/12/23 Jeff Grace MD [address] [facility] [address] [place] [address] Consulting Physician INTERNAL MEDICINE 02/20/19 3 Zaki Ortiz MD [address] [facility] [address] [place] [address] Consulting Physician PULMONARY DISEASE 07/12/19 documented as of this encounter
--- OUTSIDE RECORDS SUMMARY | 2024-09-03 19:13 | XMS_ITS | Encounter Summary ---
Author Organization [facility] Address [address] [place] [address]. [place] [address] [place] [address] Care Team [address] Care Place Change Roof Bolter Name Role Phone Piyush Pandey MD Unavailable Unavailabl e Megan Infante MD Primary Care Provider [phone] Sharmila Davis APRN RAIL TECHNICIAN-C Unavailable [phone] Linda Block MD Unavailable [phone] Jeff Grace MD Unavailable Zaki Ortiz MD Unavailable [phone] Encounter Details Date Type Department Care Team (Latest Contact Info) Description 03/18/2021 Travel Social History Tobacco Use Types Packs/Day [...] have Coronavirus / COVID-19? No / Unsure 03/18/2021 8:14 AM CDT documented as of this encounter Plan of Treatment Upcoming Encounters Date Type Department Care Team (Late st Contact Info) Description 09/25/2024 2:00 PM READING ASSISTANT Appointment [facility] [address] [place] [address] Zayra Powell, CATEGORY CONSULTANT [address] [place], [place] [phone] 10/16/2024 3:30 PM READING ASSISTANT Office Visit [facility] [address] [place] [address] Brit Gonzáles MD [address] [place], [place] [id number] documented as of this encounter Visit Diagnoses Not on filedocumented in this encounter Care Teams Place Change Roof Bolter Relationship Specialty Start Date End Date Megan Infante MD [address] [place] [address] PCP - General FAMILY PRACTICE 04/06/16 Piyush Pandey MD [place] Resident Program Specialist CARDIOVASCULAR DISEASE 04/06/16 12/28/23 Sharmila Davis APRN, RAIL TECHNICIAN-C [address] [facility] [address] [place] [address] NURSE PRACTITIONER 01/04/17 04/03/24 Linda Block MD [address] [facility] [address] [place] [address] [place] Resident Program Specialist CLINICAL CARDIAC ELECTROPHYSIOLOGY 02/08/17 04/12/23 Jeff Grace MD [address] [facility] [address] [place] [address] Consulting Physician INTERNAL MEDICINE 02/20/19 3 Zaki Ortiz MD [address] [place] [address] Consulting Physician PULMONARY DISEASE 07/12/19 documented as of this encounter
--- OUTSIDE RECORDS SUMMARY | 2024-09-03 19:13 | XMS_ITS | Encounter Summary ---
Author Organization [facility] Address [facility] [facility] [address] [place] [address] Care Team Providers Care Guitar Maker Hand Name Role Phone Piyush Pandey MD Unavailable Unavailabl e Megan Infante MD Primary Care Provider [phone] Sharmila Davis APRN, FAILURE ANALYSIS ENGINEER-C Unavailable Linda Block MD Unavailable [phone] Jeff Grace MD Unavailable Zaki Ortiz MD Unavailable [phone] Encounter Details Date Type Department Care Team (Late st Contact Info) Description 11/05/2020 Orders Only [facility] Medical Group Multispecialty [facility] [address] [place] [phone] Damaso Barnes MD [address] [place] [address] Social History Tobacco Use Types [...] have Coronavirus / COVID-19? No / Unsure 10/30/2020 2:44 PM TRANSPLANT RN documented as of this encounter Plan of Treatment Upcoming Encounters Date Type Department Care Team (Late st Contact Info) Description 09/25/2024 2:00 PM TRANSPLANT RN Appointment [facility] [address] [place] [address] Zayra Powell, MAINTENANCE REPRESENTATIVE [address] [facility] [place] [address] 10/16/2024 3:30 PM TRANSPLANT RN Office Visit [facility] [address] [facility] [place] [address] Brit Gonzáles MD [address] [place], [place] [phone] documented as of this encounter Visit Diagnoses Diagnosis 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) documented in this encounter Care Teams Guitar Maker Hand Relationship Specialty Start Date End Date Megan Infante MD [address] [facility] [place] [address] PCP - General FAMILY PRACTICE 04/06/16 Piyush Pandey MD [place] Occupational Therapist Aide CARDIOVASCULAR DISEASE 04/06/16 12/28/23 Sharmila Davis APRN, FAILURE ANALYSIS ENGINEER-C [address] [facility] [address] [place] [address] NURSE PRACTITIONER 01/04/17 04/03/24 Linda Block MD [address] [facility] [address] [place] [address] [place] Occupational Therapist Aide CLINICAL CARDIAC ELECTROPHYSIOLOGY 02/08/17 04/12/23 Jeff Grace MD [address] [place] [address] Consulting Physician INTERNAL MEDICINE 02/20/19 3 Zaki Ortiz MD [address] [place] [address] Consulting Physician PULMONARY DISEASE 07/12/19 documented as of this encounter
--- OUTSIDE RECORDS SUMMARY | 2024-09-03 19:13 | XMS_ITS | Encounter Summary ---
Author Organization [facility] Address [address] [place] [address]. [place] [address] [place] [address] Care Team Providers Care Grant Administrator Name Role Phone Piyush Pandey MD Unavailable Unavailabl e Megan Infante MD Primary Care Provider [phone] Sharmila Davis APRN WOOD TYPE FINISHER-C Unavailable [phone] Linda Block MD Unavailable [phone] Jeff Grace MD Unavailable Zaki Ortiz MD Unavailable [phone] Encounter Details Date Type Department Care Team (Latest Contact Info) Description 10/30/2020 Scan HEALTH INFO SRVCS Scanned, Documents Social History Tobacco Use Types Packs/Day Years [...] COVID-19? No / Unsure 10/30/2020 2:44 PM CHOCOLATIER documented as of this encounter Plan of Treatment Upcoming Encounters Date Type Department Care Team (Late st Contact Info) Description 09/25/2024 2:00 PM CHOCOLATIER Appointment [facility] [address] [place] [address] Zayra Powell, BASKET PERSON [address] [place], [place] [phone] 10/16/2024 3:30 PM CHOCOLATIER Office Visit [facility] [address] [place] [address] Brit Gonzáles MD [address] [place], [place] [address] documented as of this encounter Visit Diagnoses Not on filedocumented in this encounter Care Teams Grant Administrator Relationship Specialty Start Date End Date Megan Infante MD [address] [place] [address] PCP - General FAMILY PRACTICE 04/06/16 Piyush Pandey MD [place] Drug Abuse Worker CARDIOVASCULAR DISEASE 04/06/16 12/28/23 Sharmila Davis, JACKSPOOLER, WOOD TYPE FINISHER-C [address] [facility] [address] [place] [address] NURSE PRACTITIONER 01/04/17 04/03/24 Linda Block MD [address] [facility] [address] [place] [address] [place] Drug Abuse Worker CLINICAL CARDIAC ELECTROPHYSIOLOGY 02/08/17 04/12/23 Jeff Grace MD [address] [facility] [address] [place] [address] Consulting Physician INTERNAL MEDICINE 02/20/19 3 Zaki Ortiz MD [address] [facility] [address] [place] [address] Consulting Physician PULMONARY DISEASE 07/12/19 documented as of this encounter
--- OUTSIDE RECORDS SUMMARY | 2024-09-03 19:13 | XMS_ITS | Encounter Summary ---
Author Organization [facility] Address [facility] [place] [address] [place] [address] Care Team Providers Care Contact Lens Blocker Name Role Phone Piyush Pandey MD Unavailable Unavailabl e Megan Infante MD Primary Care Provider [phone] Sharmila Davis APRN, NP-C Unavailable [phone] Linda Block MD Unavailable [phone] Jeff Grace MD Unavailable Zaki Ortiz MD Unavailable [phone] Reason for Referral * Imaging (Routine) - Closed Specialty Diagnoses / Procedures Referred By Yung sequeira Referred To Contact RADIOLOGY Diagnoses Pain in both lower extremities Procedures [facility] STELLA LTD Jeff Pulido MD [address] [place] [address] Phone: tel: fax: Referral ID Status Reason Start Date Expiration Date Visits Re quested Visits Authorized [id number] Closed 11/26/2020 12/27/2021 1 1 * Imaging (Routine) - Closed Specialty Diagnoses / Procedures Referred By Yung sequeira Referred To Contact RADIOLOGY Diagnoses Bilateral carotid artery disease, unspecified type (CMS/HCC) Asymptomatic carotid artery stenosis, bilateral Pain in both lower extremities Procedures USV CAROTID DUPLEX Jeff Pulido MD [address] [place] [address] Phone: tel: fax: Referral ID Status Reason Start Date Expiration Date Visits Re quested Visits Authorized [id number] Closed 11/26/2020 12/26/2021 1 1 Reason for Visit * Reason Comments Follow Up lower extremity leg pain Encounter Details Date Type Department Care Team (Latest Contact Info) Description 11/26/2020 11:30 AM CDT Office Visit [facility] [place] [address] Jeff Grace MD [address] [place], [place] [address] Follow Up (lower extremity leg pain ) Social History Tobacco Use Types Packs/Day [...] COVID-19? No / Unsure 10/30/2020 2:44 PM WRAPPER STRIPPER documented as of this encounter Last Filed Vital Signs Vital Sign Reading Time Taken Comments Blood Pressure 147/69 11/26/2020 11:59 AM CDT Pulse 68 11/26/2020 11:57 AM CDT Temperature - - Respiratory Rate 16 11/26/2020 11:57 AM CDT Oxygen Saturation - - Inhaled Oxygen Concentration - - Weight 94.2 kg (207 lb 9.6 oz) 11/26/2020 11:57 AM CDT Height 170.2 cm (5' 7 ) 11/26/2020 11:57 AM CDT Body Mass Index 32.51 11/26/2020 11:57 AM CDT documented in this encounter Progress Notes * Jeff Grace MD - 11/26/2020 11:30 AM CDT Reason for Visit: Follow Up (lower extremity leg pain ) History of Present Illness: 65-year-old male whose cardiovascular history consists of: 1. Bilateral lower extremity pain. 2. Atrial fibrillation. 3. Carotid artery disease. 4. Bioprosthetic aortic valve replacement. 5. COPD and congestive heart failure. Still continues to have leg pain but majority is better due to his left hip and left knee pain related to arthritis. ASSESSMENT AND PLAN: 1. Bilateral leg pain. I think patient's pain is secondary to arthritis. Last ABIs that showed right STELLA is 1.24, left STELLA is 1.50. His arterial duplex does not show any significant arterial disease.His ABIs were normal/consistent with calcific disease, which is possible given his diabetes and age. 2. Carotid artery disease. Listed as per his records but carotid duplex did not show any significant stenosis. 3. Lateral lower extremity edema. Resolved with decreasing the dose of amlodipine. Recommend 20-30 mm compression stockings. 4. HTN and CHF. I will hold off decreasing further amlodipine given borderline elevated blood pressures. Would defer to your office and Dr. Pandey. May benefit from increasing other medications 5. Hyperlipidemia. He is on statins, which I will defer to you. 6. Atrial fibrillation. Patient on chronic Coumadin. Follow-up in 1 year with STELLA and carotid duplex. Medications: Current Outpatient Medications: ??? albuterol sulfate [...] Dx I83.893,Disp: 1 Container, Rfl: 6 ??? fluticasone propionate 50 MCG/ACT nasal spray, 2 sprays by Each Nare route daily., Disp: , Rfl: ??? Nemoscnfier-Faczhsalb-Nmrfey 100-62.5-25 MCG/INH AEROSOL POWDER, BREATH ACTIVATED, Inhale [...] , Rfl: ??? metoclopramide 10 MG tablet, , Disp: , Rfl: ??? mometasone-formoterol 200-5 MCG/ACT Aerosol, Inhale into the lungs 2 (two) times daily., Disp: , Rfl: ??? nystatin cream, Apply topically as needed. , Disp: , Rfl: ??? pantoprazole EC 40 MG tablet, Take 1 tablet (40 mg total) by mouth 2 (two) times daily., Disp: 60 tablet, Rfl: 3 ??? potassium chloride CR 20 MEQ tablet, Take 40 mEq by mouth daily. , Disp: , Rfl: ??? pramipexole 0.125 MG tablet, Take 0.125 mg by mouth 3 (three) times daily. , Disp: , Rfl: ??? sertraline 100 MG [...] , Rfl: ??? warfarin 1 MG tablet, 1 mg. Take 2.5 tablets with 0.5 of 10 mg tablet to = 7.5 mg, Disp: , Rfl: No Known Allergies Past Medical History: Diagnosis Date ??? Abnormal ankle brachial index (STELLA) ??? Acute on chronic heart failure, unspecified heart failure type (CMS/HCC) ??? Anxiety ??? Aortic valve stenosis ??? Arthritis ??? Atrial fibrillation (CMS/HCC) s/p PVI/WACA 10/2015 ??? Bilateral leg pain ??? Carotid disease, bilateral (CMS/HCC) ??? Claudication (CMS/HCC) ??? COPD (chronic obstructive pulmonary disease) (CMS/HCC) ??? Coronary artery disease ??? Diabetes mellitus, type II (CMS/HCC) ??? Edema 04/19/2018 2+ pitting ??? Hyperlipidemia ??? Hypertension ??? LV dysfunction ??? Osteoarthritis ??? PAD (peripheral artery disease) (CMS/HCC) ??? Pneumonia ??? Restless leg syndrome ??? S/P aortic valve replacement with bioprosthetic valve 2013 ??? SOB (shortness of breath) ??? Varicose veins of bilateral lower extremities with other complications Past Surgical History: Procedure Laterality Date ??? APPENDECTOMY ??? CARDIAC VALVE REPLACEMENT 1999 ??? CARDIAC VALVE REPLACEMENT 2013 ??? CARDIOVERSION EXTERNAL 10/01/2015 ??? CARDIOVERSION EXTERNAL 04/14/2012 ??? HIP ARTHROPLASTY Left ??? KNEE ARTHROPLASTY Bilateral ??? REPAIR ROTATOR CUFF W/ OR W/O ACROMIOPLASTY ??? USE NEMO+CARDIOVERSION 03/24/2016 ??? XA A-FIB ABLATION 10/23/2015 PVI/WACA Social History Tobacco Use ??? Smoking status: Former Smoker ??? Smokeless tobacco: Former User Types: Chew Substance Use Topics ??? Alcohol use: Yes Comment: 6 per week ??? Drug use: No No [...] snoring. Cardiovascular: See HPI. Positive for leg swelling.Negative for palpitations. Gastrointestinal: Negative for blood in stool and melena. Genitourinary: Negative for dysuria. Musculoskeletal: Positive for joint stiffness/pain. Negative for myalgias. Skin: Negative for rash. Neurological: Negative for tingling/numbness and focal weakness. Endo/Heme/Allergies: Negative for new or significant bruising/bleeding and polydipsia. Psychiatric/Behavioral: Negative for depression and new or significant memory loss. Filed Vitals: 11/26/20 1157 11/26/20 1159 BP: 142/84 147/69 Pulse: 68 Resp: 16 Weight: 94.2 kg (207 lb 9.6 oz) Height: 5' 7 (1.702 m) Vitals: 11/26/20 1157 11/26/20 1159 BP Location: Left arm Right arm BP: 142/84 147/69 Pulse: 68 Body mass index is 32.51 kg/m??. Physical Exam Constitutional: No distress. HENT: [...] murmur. Cardiovascular Comments: 0-1+ pitting edema bilaterally Diagnoses/Impression: 1. Bilateral carotid artery disease, unspecified type (CMS/HCC) USV CAROTID DUPLEX ELZA 2. Asymptomatic carotid artery stenosis, bilateral USV CAROTID DUPLEX [facility]ZA 3. Pain in both lower extremities USV CAROTID DUPLEX [facility]ZA [facility] STELLA LTD [facility]ZA Referring Provider: Megan Infante MD PCP: MEGAN INFANTE MD documented in this encounter Plan of Treatment Upcoming Encounters Date Type Department Care Team (Late st Contact Info) Description 09/25/2024 2:00 PM WRAPPER STRIPPER Appointment [facility] [address] [place] [address] Zayra Powell FNP [address] [place] [address] 10/16/2024 3:30 PM WRAPPER STRIPPER Office Visit [facility] [address] [place] [address] Brit Gonzáles MD [address] [place] [address] documented as of this encounter Results * USV CAROTID DUPLEX ELZA (11/25/2021 9:59 AM CDT) Anatomical Region Laterality Modality Neck Ultrasound Jeff Grace MD VASC Final Result * [facility]V STELLA LTD ELZA (11/25/2021 9:18 AM CDT) Anatomical Region Laterality Modality Extremity Ultrasound Jeff Grace MD VASC Final Result documented in this encounter Visit Diagnoses Diagnosis Bilateral carotid artery disease, unspecified type (CMS/[facility])- Primary Asymptomatic carotid artery stenosis, bilateral Pain in both lower extremities documented in this encounter Care Teams Contact Lens Blocker Relationship Specialty Start Date End Date Megan Infante MD [address] [place] [phone] PCP - General FAMILY PRACTICE 04/06/16 Piyush Pandey MD [place] Mediation Commissioner CARDIOVASCULAR DISEASE 04/06/16 12/28/23 Sharmila Davis, DANNY, MOLDER SETTER-C [id number] [place] [address] [phone] NURSE PRACTITIONER 01/04/17 04/03/24 Linda Block MD [address] [facility] [address] [place] [address] Carmen Mediation Commissioner CLINICAL CARDIAC ELECTROPHYSIOLOGY 02/08/17 04/12/23 Jeff Grace MD [address] [facility] [address] [place] [address] Consulting Physician INTERNAL MEDICINE 02/20/19 3 Zaki Ortiz MD [address] [place] [phone] Consulting Physician PULMONARY DISEASE 07/12/19 documented as of this encounter
--- OUTSIDE RECORDS SUMMARY | 2024-09-03 19:13 | XMS_ITS | Encounter Summary ---
Author Organization [facility] Address [address] [place] [address]. [place] [address] [place] [address] Care Team Providers Care Lead Process Engineer Name Role Phone Piyush Pandey MD Unavailable Unavailabl e Megan Infante MD Primary Care Provider [phone] Sharmila Davis APRN TECHNICAL SUPPORT 1 SOFTWARE ENGINEER-C Unavailable [phone] Linda Block MD Unavailable [phone] Jeff Grace MD Unavailable Zaki Ortiz MD Unavailable [phone] Reason for Visit * Reason Onset Date Comments Results 02/24/2021 Encounter Details Date Type Department Care Team (Late st Contact Info) Description 02/24/2021 Telephone [facility] Multispecialty [address] [address] Damaso Barnes MD [address] [place] [address] Results Social History Tobacco Use Types Packs/Day [...] as of this encounter Progress Notes * Damaso Barnes MD - 02/27/2021 7:53 PM CDT Orders have been placed * Abril Boles LPN - 02/27/2021 10:42 AM CDT Pt. aware of results and states has not had PFT or Sleep study test - will new orders need to be put in. Pt. states he will do tests. documented in this encounter Plan of Treatment Upcoming Encounters Date Type Department Care Team (Late st Contact Info) Description 09/25/2024 2:00 PM LAMP DECORATOR Appointment [facility] [address] [place] [phone] Zayra Powell, VEST TAILOR [address] [place] [address] 10/16/2024 3:30 PM LAMP DECORATOR Office Visit [facility] [address] [place] [phone] Brit Gonzáles MD [address] [place], [place] [address] documented as of this encounter Visit Diagnoses Not on filedocumented in this encounter Care Teams Lead Process Engineer Relationship Specialty Start Date End Date Megan Infante MD [address] [place] [address] PCP - General FAMILY PRACTICE 04/06/16 Piyush Pandey MD [place] Associate Trainer CARDIOVASCULAR DISEASE 04/06/16 12/28/23 Sharmila Davis APRN, TECHNICAL SUPPORT 1 SOFTWARE ENGINEER-C [address] [facility] [address] [place] [phone] NURSE PRACTITIONER 01/04/17 04/03/24 Linda Block MD [address] [address] [place] Associate Trainer CLINICAL CARDIAC ELECTROPHYSIOLOGY 02/08/17 04/12/23 Jeff Grace MD [address] [address] Consulting Physician INTERNAL MEDICINE 02/20/19 3 Zaki Ortiz MD [address] [address] Consulting Physician PULMONARY DISEASE 07/12/19 documented as of this encounter
--- OUTSIDE RECORDS SUMMARY | 2024-09-03 19:13 | XMS_ITS | Encounter Summary ---
Author Organization [facility] Address [address] [place] [address]. [place] [address] [place] [address] Care Team Providers Care Claim Analyst Name Role Phone Piyush Pandey MD Unavailable Unavailabl e Megan Infante MD Primary Care Provider [phone] Sharmila Davis APRN, NP-C Unavailable Linda Block MD Unavailable [phone] Jeff Grace MD Unavailable Zaki Ortiz MD Unavailable [phone] Reason for Visit * Reason Onset Date Comments Reschedule 10/07/2020 Encounter Details Date Type Department Care Team (Late st Contact Info) Description 10/07/2020 Telephone [facility] [address] [place] [address] Piyush Pandey MD Reschedule Social History Tobacco Use Types Packs/Day Years Used Date Smoking Tobacco: Former Smokeless Tobacco: Former Chew Alcohol Use Standard Drinks/Week Comments Yes 0 (1 standard drink = 0.6 oz pur e alcohol) 6 per week Sex and Gender Information Value Date Recorded [...] have Coronavirus / COVID-19? No / Unsure 10/05/2020 8:07 AM IT TELECOM TECHNICIAN documented as of this encounter Progress Notes * Megan Lay RN - 10/07/2020 3:35 PM CST Pt calling to reschedule his NEMO due to the weather tomorrow. Rescheduled to 10/10 at 8:00am. Patient verbalized understanding and had no further questions. TELECOM TECHNICIAN documented in this encounter Plan of Treatment Upcoming Encounters Date Type Department Care Team (Late st Contact Info) Description 09/25/2024 2:00 PM IT TELECOM TECHNICIAN Appointment [facility] [address] [address] Zayra Powell, CUSTODIAN [address] [facility] [place] [address] 10/16/2024 3:30 PM IT TELECOM TECHNICIAN Office Visit [facility] [address] [place] [phone] Brit Gonzáles MD [address] [place], [place] [address] documented as of this encounter Visit Diagnoses Not on filedocumented in this encounter Care Teams Claim Analyst Relationship Specialty Start Date End Date Megan Infante MD [address] [place] [phone] PCP - General FAMILY PRACTICE 04/06/16 Piyush Pandey MD [place] Collections Officer CARDIOVASCULAR DISEASE 04/06/16 12/28/23 Sharmila Davis APRN, SYRUP MIXER ASSISTANT-C [address] [facility] [address] [place] [address] NURSE PRACTITIONER 01/04/17 04/03/24 Linda Block MD [address] [place] [address] [facility] Collections Officer CLINICAL CARDIAC ELECTROPHYSIOLOGY 02/08/17 04/12/23 Jeff Grace MD [address] [place] [phone] Consulting Physician INTERNAL MEDICINE 02/20/19 3 Zaki Ortiz MD [address] [place] [phone] Consulting Physician PULMONARY DISEASE 07/12/19 documented as of this encounter
--- OUTSIDE RECORDS SUMMARY | 2024-09-03 19:13 | XMS_ITS | Encounter Summary ---
Author Organization [facility] Address [facility] [place] [address] [place] [address] Care Team Providers Care Beam Warper Name Role Phone Piyush Pandey MD Unavailable Unavailabl e Megan Infante MD Primary Care Provider [phone] Sharmila Davis APRN, NP-C Unavailable Linda Block MD Unavailable [phone] Jeff Grace MD Unavailable Zaki Ortiz MD Unavailable [phone] Reason for Visit * Auth/Cert Specialty Diagnoses / Procedures Referred By Yung sequeira Referred To Contact Diagnoses DYSPHAGIA, HISTORY OF POLYPS Procedures UPPER GI ENDOSCOPY,BIOPSY COLONOSCOPY,DIAGNOSTIC EGD COLONOSCOPY DIAGNOSTIC WITH/WITHOUT SPECIMEN BRUSH/WASH Referral ID Status Reason Start Date Expiration Date Visits Re quested Visits Authorized [id number] 1 1 Encounter Details Date Type Department Care Team (Late st Contact Info) Description 03/18/2021 8:15 AM CDT - 03/18/2021 11:15 AM T Hospital En[facility] [place] [address] [place] [address] Gloria Navarro MD [address] [place] [address] Discharge Disposition: Home or Self Care [...] Sign Reading Time Taken Comments Blood Pressure 161/98 03/18/2021 11:01 AM CDT Pulse 73 03/18/2021 11:01 AM CDT Temperature 36.6 ??C (97.9 ??F) 03/18/2021 11:01 AM C DT Respiratory Rate 18 03/18/2021 11:01 AM CDT Oxygen Saturation 99% 03/18/2021 11:01 AM CDT Inhaled Oxygen Concentration - - Weight 102.1 kg (225 lb) 03/07/2021 10:29 AM CDT Height 170.2 cm (5' 7 ) 03/07/2021 10:29 AM CDT Body Mass Index 35.24 03/07/2021 10:29 AM CDT documented in this encounter Discharge Instructions * Attachments The following attachments cannot be sent through Care Everywhere. * Moderate Sedation in Adults Discharge Instructions (Mongolian) * Gastritis Discharge Instructions (Mongolian) documented in this encounter Medications at Time [...] by mouth 2 (two) times daily. 2 clonazePAM 1 MG tablet Take 1 mg by mouth nightly as needed. 10/09/2016 2 COMPRESSION STOCKINGS 20-30 MMHg Compression Stocking Knee High open or closed toe Dx I83.893 1 Container 6 04/11/2019 2 enoxaparin 40 MG/0.4ML Solution 02/11/2021 2 Fluticasone-Umec lidin-Vilant 100-62.5-25 MCG/INH AEROSOL POWDER, [...] Do not break or crush tablet 3 hydrocodone-acet aminophen 7.5-325 MG tablet Take 1 [...] mouth 2 (two) times daily. 02/18/2021 2 sertraline 100 MG tablet Take 150 mg by mouth daily. 12/02/2018 2 SPIRONOLACTONE 25 MG tablet TAKE 1 TABLET BY MOUTH EVERY MORNING 90 tablet 3 10/24/2018 2 trazodone 100 MG tablet Take 200 mg by mouth nightly at bedtime. at bedtime 3 03/16/2016 2 triamcinolone 0.5 % cream Apply topically 2 (two) times daily. 04/19/2018 2 warfarin 1 MG tablet As directed 2 documented as of this encounter Progress Notes * Iza Jordan RN - 03/07/2021 10:51 AM CDT Reviewed with patient clear liquid diet to be started and maintained all day before procedure 03/17/21. Pt voiced understanding. documented in this encounter H&P Notes * Gloria Navarro MD - 03/18/2021 9:55 AM CDT Attending Provider: Gloria Navarro MD PCP: MEGAN INFANTE MD Obie Sims is an 65-year-old male. Chief Complaint: Dysphagia and history of polyps HPI: Dysphagia and history of polyps Reason for Admission: No Known Allergies No current facility-administered medications on file prior to encounter. Current Outpatient Medications on File Prior to Encounter Medication Sig ??? albuterol sulfate HFA (PROAIR HFA) 108 (90 BASE) MCG/ACT inhaler Inhale 1 puff into the lungs every 6 (six) hours as needed. ??? allopurinol 300 MG tablet Take 300 mg by mouth daily. ??? amlodipine 2.5 MG tablet Take 1 tablet (2.5 mg total) by mouth daily. ??? aspirin (ASPIRIN CHILDRENS) 81 MG chewable tablet Chew 81 mg by mouth daily. ??? atorvastatin 80 MG tablet Take 80 mg by mouth nightly at bedtime. ??? carvedilol 6.25 MG tablet Take 6.25 mg by mouth 2 (two) times daily. ??? clonazePAM 1 MG tablet Take 1 mg by mouth nightly as needed. ??? COMPRESSION STOCKINGS 20-30 MMHg Compression Stocking Knee High open or closed toe Dx I83.893 ??? enoxaparin 40 MG/0.4ML Solution ??? Nfhgtdmdeuh-Jjcewxoug-Kmdljw 100-62.5-25 MCG/INH AEROSOL POWDER, BREATH ACTIVATED Inhale into the lungs daily. ??? furosemide 40 MG tablet Take 2 tablets (80 mg total) by mouth daily. ??? gabapentin 100 MG capsule Take 100 mg by mouth. 100 mg in the AM and 300 at bedtime ??? glipiZIDE XL 5 MG [...] Take 50 mg by mouth daily. ??? magnesium oxide 400 (241.3 MG) MG tablet Take 400 mg by mouth daily. ??? Melatonin 10 MG Cap Take 10 mg by mouth nightly as needed. ??? metFORMIN 500 MG tablet Take 500 mg by mouth 2 (two) times daily with meals. ??? nystatin cream Apply topically as needed. ??? NYSTOP powder ??? pantoprazole EC 40 MG tablet Take 1 tablet (40 mg total) by mouth 2 (two) times daily. ??? potassium chloride CR 20 MEQ tablet Take 40 mEq by mouth daily. ??? pramipexole 0.5 MG tablet Take 0.5 mg by mouth 2 (two) times daily. ??? sertraline 100 MG tablet Take 150 mg by mouth daily. ??? SPIRONOLACTONE 25 MG tablet TAKE 1 TABLET BY MOUTH EVERY MORNING (Patient taking differently: Take 25 mg by mouth daily. ) ??? trazodone 100 MG tablet Take 200 mg by mouth nightly at bedtime. at bedtime ??? triamcinolone 0.5 % cream Apply topically 2 (two) times daily. ??? warfarin 1 MG tablet Take 1 mg by mouth daily. 6.5mg daily Review of Systems Constitutional: Negative. Respiratory: Negative. [...] No family history on file. Blood pressure 148/78, pulse 77, temperature 97.8 ??F (36.6 ??C), temperature source Temporal, resp. rate 18, height 5' 7 (1.702 m), weight 102.1 kg (225 lb), SpO2 97 %. Physical Exam Cardiovascular: Rate and Rhythm: Normal rate. Pulmonary: Effort: Pulmonary effort is normal. Neurological: Mental Status: He is alert. Results for orders placed or performed during the hospital encounter of 02/18/21 PROTIME/INR, VENOUS Result Value Ref Range Protime 30.6 (H) 9.4 - 12.5 SEC INR 2.7 (H) 0.9 - 1.1 BASIC METABOLIC PANEL Result Value Ref Range SODIUM 140 136 - 145 MMOL/L POTASSIUM 4.7 3.5 - 5.1 MMOL/L CHLORIDE S/P/B 101 98 - 107 MMOL/L CO2 30.8 21.0 - 32.0 MMOL/L GLUCOSE 177 (H) 70 - 99 MG/DL BUN 20 6 - 24 MG/DL CREATININE S/P/B 1.37 (H) 0.70 - 1.30 MG/DL CALCIUM 9.4 8.4 - 10.5 MG/DL ANION GAP 8.2 5.0 - 15.0 MMOL/L OSMOLALITY (CALC) 297 MOSM/KG eGFR Non-Afr. Amer. 53 (L) >89 ML/MIN/1.73 M2 eGFR Afr. Amer. 62 (L) >89 ML/MIN/1.73 M2 GFR NOTES GFR REFERENCES: IMPRESSION: Patient Active Problem List Diagnosis ??? S/P ablation of atrial fibrillation ??? LV dysfunction ??? Essential hypertension ??? Mixed hyperlipidemia ??? Diabetes mellitus, type II (CMS/HCC) ??? Coronary artery disease involving andreafski coronary artery of andreafski heart without angina pectoris ??? COPD (chronic [...] (CMS/HCC) ??? Asymptomatic carotid artery stenosis, bilateral Dysphagia and history of polyps PLAN: EGD and colonoscopy as planned GLORIA NAVARRO MD 03/18/2021 documented in this encounter Plan of Treatment Upcoming Encounters Date Type Department Care Team (Late st Contact Info) Description 09/25/2024 2:00 PM CREATIVE WRITER Appointment [facility] [address] [place], [place] [phone] Zayra Powell FNP [address] [place] [address] 10/16/2024 3:30 PM CREATIVE WRITER Office Visit [facility] [address] [place] [phone] Brit Gonzáles MD [address] [place] [address] documented as of this encounter Procedures Procedure Name Priority Date/Time Associated Diagnosis Comments COLONOSCOPY 03/18/2021 10:27 AM CDT ENDOSCOPY (SCAN ORDER) 03/18/2021 10:19 AM CDT H PYLORI UREASE Routine 03/18/2021 10:16 AM CDT COLONOSCOPY FLX DX W/COLLJ SPEC WHEN PFRMD 03/18/2021 10:06 AM CDT DYSPHAGIA, HISTORY OF POLYPS EGD WITH DILAT STRICTURE 03/18/2021 10:06 AM CDT DYSPHAGIA, HISTORY OF POLYPS PATHOLOGY Routine 03/18/2021 12:00 AM CDT documented in this encounter Results * COLONOSCOPY (03/18/2021 10:27 AM CDT) Gloria Navarro MD GI PROCEDURE ORDERABLES Final Result * ENDOSCOPY (03/18/2021 10:19 AM CDT) Gloria Navarro MD SCANNING Final Result * H PYLORI UREASE (03/18/2021 10:16 AM CDT) SPEC DESCRIPTION GASTRIC BIOPSY 03/18/2021 10:50 AM CDT [facility] SPECIAL REQUESTS NO SPECIAL REQUEST 03/18/2021 10:50 AM CDT [facility] DIRECT EXAM PRESUMPTIVE NEGATIVE FOR H. PYLORI 03/18/2021 3:28 PM CDT [facility] Tissue specimen (specimen) GASTRIC BIOPSY SPECIMEN / Unknown 03/18/2021 10:16 AM CDT Gloria Navarro MD MICROBIOLOGY - GENERAL ORDERA BLES Final Result Performing Organization Address City/State/[facility] Co de Phone Number [facility] [address] [place] [address], * Pathology (03/18/2021 12:00 AM CDT) PATHOLOGY [facility] ? Department of Laboratory Medicine ?[address] ?[place] [address] ? , extension [phone] ? Pathology Report ? Surgical Pathology Report Name: OBIE SIMS ?Specimen #: [id number] Age: 12 1955 (Age: 65) ? Location: [facility] Sex: M ?Procedure Date: 03/18/2021 Hospital #: [id number] ?Date Received: 03/19/2021 Date Reported: 03/21/2021 Provider: GLORIA NAVARRO MD Source: A: Antrum, biopsies B: Gastric polyps Clinical History: Dysphagia and history of polyps. Gross Description: Received in two parts: A) Received in formalin, labeled with a patient label and as antrum biopsy is a 0.3 cm piece of bonilla tissue. ??The specimen is entirely submitted in cassette A1. B) received in formalin, labeled with a patient label and as gastric polyp is a 0.3 cm piece of pink-bonilla tissue. ??The specimen is entirely submitted in cassette B1. FINAL DIAGNOSIS: A) STOMACH, ANTRUM, BIOPSY: ? - GASTRIC ANTRAL MUCOSA WITH REACTIVE CHANGES. ? - NEGATIVE FOR HELICOBACTER MICROORGANISMS ON ROUTINE HISTOLOGY. B) STOMACH, POLYP, BIOPSY: ? - SMALL GASTRIC INFLAMMATORY/HYPER PLASTIC-TYPE POLYP WITH REACTIVE CHANGES. Electronically Signed Out ? Rafi Banegas M.D. [facility] Tissue specimen (specimen) STOMACH STRUCTURE / Unknown 03/18/2021 10:17 AM CDT Tissue specimen (specimen) STOMACH STRUCTURE / Unknown 03/18/2021 10:18 AM CDT Gloria Navarro MD PATHOLOGY/CYTOLOGY ORDERABLES Final Result [facility] [address] [place] [address], [id number] documented in this encounter Visit Diagnoses Not on filedocumented in this encounter Administered Medications Inactive Administered Medications - up to 3 most recent administrations Medication Order MAR Action Action Date Dose Rate Site sodium chloride 0.9 % infusion 1 dose, Starting on Wed03/18/21 at 0613, Until Wed03/18/21 at 0852, Created by cabinet override sodium chloride 0.9% infusion at 10 mL/hr, Intravenous, Continuous, Starting on Wed03/18/21 at 0845, Until Wed03/18/21 at 1327, Infuse at TKO rate. Use mini-drip tubing for ESRD patients., Pre-Op Restarted 03/18/2021 10:00 AM CDT New Bag 03/18/2021 8:52 AM CDT 10 mL/hr documented in this encounter Active and Recently Administered Medications Times are shown in CDT. Continuous Medication Order 03/16/2021 03/17/2021 03/18/2021 sodium chloride 0.9% infusion at 10 mL/hr, Intravenous, Continuous, Starting on Wed03/18/21 at 0845, Until Wed03/18/21 at 1327, Infuse at TKO rate. Use mini-drip tubing for ESRD patients., Pre-Op 0852 (New Bag - Prov ider: Avis Nix RN)0959 (Paused - Provider: Karen Sheriff CRNA - Comment: Switch to gravity)1000 (Restarted - Provider: Karen Sheriff CRNA)1026 (Anesthesia Volume Adjustment - Provider: Karen Sheriff CRNA)1102 (Infusion Stop Time - Provider: Evita L Mane, RN) documented in this encounter Care Teams Beam Warper Relationship Specialty Start Date End Date Megan Infante MD [address] [facility] [place] [address] PCP - General FAMILY PRACTICE 04/06/16 Piyush Pandey MD [place] [employer] Supervisor CARDIOVASCULAR DISEASE 04/06/16 12/28/23 Sharmila Davis APRN, BACTERIOLOGIST DAIRY-C [address] [facility] [address] [place] [phone] NURSE PRACTITIONER 01/04/17 04/03/24 Linda Block MD [address] [address] [place] [employer] Supervisor CLINICAL CARDIAC ELECTROPHYSIOLOGY 02/08/17 04/12/23 Jeff Grace MD [address] [address] Consulting Physician INTERNAL MEDICINE 02/20/19 3 Zaki Ortiz MD [address] [phone] Consulting Physician PULMONARY DISEASE 07/12/19 documented as of this encounter
--- OUTSIDE RECORDS SUMMARY | 2024-09-03 19:13 | XMS_ITS | Encounter Summary ---
Author Organization [facility] Address [address] [place] [address]. [place] [address] [place] [address] Care Team Providers Care Ehs Teacher Name Role Phone Piyush Pandey MD Unavailable Unavailabl e Megan Infante MD Primary Care Provider [phone] Sharmila Davis APRN TECHNOLOGY LAB TEACHER-C Unavailable [phone] Linda Block MD Unavailable [phone] Jeff Grace MD Unavailable Zaki Ortiz MD Unavailable [phone] Encounter Details Date Type Department Care Team (Latest Contact Info) Description 04/18/2021 Travel Social History Tobacco Use Types Packs/Day [...] have Coronavirus / COVID-19? No / Unsure 04/18/2021 1:10 PM CDT documented as of this encounter Plan of Treatment Upcoming Encounters Date Type Department Care Team (Late st Contact Info) Description 09/25/2024 2:00 PM COIL STRAPPER Appointment [facility] [address] [place] [address] Zayra Powell, MARKETER [address] [place], [place] [phone] 10/16/2024 3:30 PM COIL STRAPPER Office Visit [facility] [address] [place] [address] Brit Gonzáles MD [address] [place], [place] [phone] documented as of this encounter Visit Diagnoses Not on filedocumented in this encounter Care Teams Ehs Teacher Relationship Specialty Start Date End Date Megan Infante MD [address] [place] [address] PCP - General FAMILY PRACTICE 04/06/16 Piyush Pandey MD [place] Power [employer] Operator CARDIOVASCULAR DISEASE 04/06/16 12/28/23 Sharmila Davis APRN, TECHNOLOGY LAB TEACHER-C [address] [facility] [address] [place] [phone] NURSE PRACTITIONER 01/04/17 04/03/24 Linda Block MD [address] [facility] [address] [place] [phone] [place] [employer] Operator CLINICAL CARDIAC ELECTROPHYSIOLOGY 02/08/17 04/12/23 Jeff Grace MD [address] [facility] [address] [place] [phone] Consulting Physician INTERNAL MEDICINE 02/20/19 3 Zaki Ortiz MD [address] [place] [phone] Consulting Physician PULMONARY DISEASE 07/12/19 documented as of this encounter
--- OUTSIDE RECORDS SUMMARY | 2024-09-03 19:13 | XMS_ITS | Encounter Summary ---
Author Organization [facility] Address [address] [place] [address]. [place] [address] [place] [address] Care Team Providers Care Exchange Engineer Name Role Phone Piyush Pandey MD Unavailable Unavailabl e Megan Infante MD Primary Care Provider [phone] Sharmila Davis APRN, FOXING CLOSER-C Unavailable Linda Block MD Unavailable [phone] Jeff Grace MD Unavailable Zaki Ortiz MD Unavailable [phone] Encounter Details Date Type Department Care Team (Late st Contact Info) Description 02/18/2021 11:59 AM CDT - 02/18/2021 11:59 PM CDT Hospital Encounter [facility] [address] [facility] [place] [address] Enoch Barnes MD [address] [place] [address] Discharge Disposition: Home or Self Care (Routine [...] 2 enoxaparin 40 MG/0.4ML Solution 02/11/2021 2 fluticasone propionate 50 MCG/ACT nasal spray 2 sprays by Each Nare route daily. 1 Fluticasone-Umec lidin-Vilant 100-62.5-25 MCG/INH AEROSOL POWDER, BREATH [...] with meals. 3 metoclopramide 10 MG tablet 11/25/2020 1 mometasone-formo terol 200-5 MCG/ACT Aerosol Inhale into the lungs 2 (two) times daily. 1 nystatin cream Apply topically as needed. 01/31/2020 3 NYSTOP powder 02/18/2021 2 pantoprazole EC 40 MG tablet Take 1 tablet (40 mg total) by mouth 2 (two) times daily. 60 tablet 3 03/05/2020 2 potassium chloride CR 20 MEQ tablet Take 40 mEq by mouth daily. 2 pramipexole 0.125 MG tablet Take 0.125 mg by mouth 3 (three) times daily. 08/26/2020 1 pramipexole 0.5 MG tablet Take 0.5 mg [...] directed 2 documented as of this encounter Plan of Treatment Upcoming Encounters Date Type Department Care Team (Late st Contact Info) Description 09/25/2024 2:00 PM FREELANCE WRITER Appointment [facility] [address] [facility] [place] [address] Zayra Powell, DIRECTOR BUSINESS INTEGRATION [address] [place] [address] 10/16/2024 3:30 PM FREELANCE WRITER Office Visit [facility] [address] [facility] [phone] Brit Gonzáles MD [address] [place] [address] documented as of this encounter Procedures Procedure Name Priority Date/Time Associated Diagnosis Comments XR CHEST PA+LAT Routine 02/18/2021 12:27 PM CDT Pulmonary hypertension ([facility]) documented in this encounter Results * XR CHEST PA+LAT (02/18/2021 12:27 PM CDT) Anatomical Region Laterality Modality Chest Radiographic Stephie ging 02/19/2021 7:14 AM CDT Impressions 02/19/2021 7:15 AM CDT IMPRESSION: No acute findings Referred By: ENOCH BARNES Interpreted By: Pradeep Boyer MD, 02/19/2021 7:14 AM Narrative 02/19/2021 7:15 AM CDT 2 VIEWS OF THE CHEST Clinical history: Pulmonary hypertension Comparison: May 04, 2016 2 views of the chest demonstrate cardiomegaly which is stable. Evidence of previous median sternotomy and aortic valve replacement are again noted. A mildly prominent interstitial pattern is noted throughout the lungs but is improved since the previous exam. No areas of consolidation are seen and no pleural fluid is noted Procedure Note Pradeep Boyer MD - 02/19/2021 2 VIEWS OF THE CHEST Clinical history: Pulmonary hypertension Comparison: May 04, 2016 2 views of the chest demonstrate cardiomegaly which is stable. Evidenceof previous median sternotomy and aortic valve replacement are again noted.A mildly prominent interstitial pattern is noted throughout the lungs butis improved since the previous exam. No areas of consolidation are seen andno pleural fluid is noted IMPRESSION: No acute findings Referred By: ENOCH BARNES Interpreted By: Pradeep Boyer MD, 02/19/2021 7:14 AM Enoch Barnes MD GENERAL IMAGING Final Res ult documented in this encounter Visit Diagnoses Diagnosis Pulmonary hypertension ([facility]/HCC) Other chronic pulmonary heart diseases documented in this encounter Care Teams Exchange Engineer Relationship Specialty Start Date End Date Megan Infante MD [address] [facility] [place] [address] PCP - General FAMILY PRACTICE 04/06/16 Piyush Pandey MD [place] [employer] Navigation Installer CARDIOVASCULAR DISEASE 04/06/16 12/28/23 Sharmila Davis, PYTHON ENGINEER, FOXING CLOSER-C [address] [place] [address] NURSE PRACTITIONER 01/04/17 04/03/24 Linda Block MD [address] [place] [address] [place] [employer] Navigation Installer CLINICAL CARDIAC ELECTROPHYSIOLOGY 02/08/17 04/12/23 Jeff Grace MD [address] [place] [phone] Consulting Physician INTERNAL MEDICINE 02/20/19 3 Zaki Ortiz MD [address] [place] [phone] Consulting Physician PULMONARY DISEASE 07/12/19 documented as of this encounter
--- OUTSIDE RECORDS SUMMARY | 2024-09-03 19:13 | XMS_ITS | Encounter Summary ---
Author Organization [facility] Address [facility] [place] [address] [place] [address] Care Team Providers Care Senior Landscape Architect Name Role Phone Piyush Pandey MD Unavailable Unavailabl e Megan Infante MD Primary Care Provider [phone] Sharmila Davis APRN DISTRIBUTED GENERATION PROJECT MANAGER-C Unavailable [phone] Linda Block MD Unavailable [phone] Jeff Grace MD Unavailable Zaki Ortiz MD Unavailable [phone] Reason for Visit * Auth/Cert Specialty Diagnoses / Procedures Referred By Yung sequeira Referred To Contact Diagnoses DYSPHAGIA, HISTORY OF POLYPS Procedures UPPER GI ENDOSCOPY,BIOPSY COLONOSCOPY,DIAGNOSTIC EGD COLONOSCOPY DIAGNOSTIC WITH/WITHOUT SPECIMEN BRUSH/WASH Referral ID Status Reason Start Date Expiration Date Visits Re quested Visits Authorized [id number] 1 1 Encounter Details Date Type Department Care Team (Late st Contact Info) Description 03/18/2021 9:56 AM CDT - 03/18/2021 10:33 AM CDT Surgery [place] [address] [place] [address] Gloria Navarro MD [address] [place] [address] EGD with biopsies, polypectomy, and dilation (44,48,52) Surgery Details Date/Time Status Location OR Service Patient Class Case Class Case Type Trauma Case? 03/18/2021 9:56 AM Posted [facility] OR Endo Gastroenterology Short Stay/Outpa tient Surgery No Panel 1 Procedure LRB Anes Op Region Wound Class Comments EGD with biopsies, polypectomy, and dilation (44,48,52) N/A Monitor Anesthesia Care Esophagus Clean Contaminated COLONOSCOPY (Incomplete) N/A Monitor Anesthesia Care Colon Clean Contaminated Surgeon Surgeon Role Service Panel Gloria Navarro MD Primary Gastroenterology 1 documented in this encounter Social History Tobacco [...] Sign Reading Time Taken Comments Blood Pressure 137/85 03/18/2021 10:31 AM CDT Pulse 65 03/18/2021 10:31 AM CDT Temperature 36.6 ??C (97.9 ??F) 03/18/2021 10:31 AM C DT Respiratory Rate 18 03/18/2021 10:31 AM CDT Oxygen Saturation 100% 03/18/2021 10:31 AM CDT Inhaled Oxygen Concentration - - Weight 102.1 kg (225 lb) 03/07/2021 10:29 AM CDT Height 170.2 cm (5' 7 ) 03/07/2021 10:29 AM CDT Body Mass Index 35.24 03/07/2021 10:29 AM CDT documented in this encounter Discharge Instructions * Attachments The following attachments cannot be sent through Care Everywhere. * Moderate Sedation in Adults Discharge Instructions (Cuban) * Gastritis Discharge Instructions (Cuban) documented in this encounter Medications at Time [...] I83.893 ??? enoxaparin 40 MG/0.4ML Solution ??? Oyvvrizuubk-Imuyanroe-Zialvj 100-62.5-25 MCG/INH AEROSOL POWDER, BREATH ACTIVATED Inhale [...] II (CMS/HCC) ??? Coronary artery disease involving squaxin coronary artery of squaxin heart without angina pectoris ??? COPD (chronic [...] Contact Info) Description 09/25/2024 2:00 PM HOSPITAL AIDES AND ASSISTANTS TEACHER Appointment [facility] [address] [place] [address] Zayra Powell FNP [address] [place] [address] 10/16/2024 3:30 PM HOSPITAL AIDES AND ASSISTANTS TEACHER Office Visit [facility] [address] [place] [address] Brit Gonzáles MD 9 [place] [address] documented as of this encounter Procedures Procedure [...] Results * COLONOSCOPY (03/18/2021 10:27 AM CDT) us Gloria Navarro MD GI PROCEDURE ORDERABLES Final Result * ENDOSCOPY (03/18/2021 10:19 AM CDT) us Gloria Navarro MD SCANNING Final Result * H PYLORI UREASE (03/18/2021 10:16 AM CDT) SPEC DESCRIPTION GASTRIC BIOPSY 03/18/2021 10:50 AM CDT [facility] SPECIAL REQUESTS NO SPECIAL REQUEST 03/18/2021 10:50 AM CDT [facility] DIRECT EXAM PRESUMPTIVE NEGATIVE FOR H. PYLORI 03/18/2021 3:28 PM CDT [facility] Tissue specimen (specimen) GASTRIC BIOPSY SPECIMEN / Unknown 03/18/2021 10:16 AM CDT us Gloria Navarro MD MICROBIOLOGY - GENERAL ORDERA BLES Final Result [facility] [address] [place] [address], * Pathology (03/18/2021 12:00 AM CDT) PATHOLOGY [facility] ? Department of Laboratory Medicine ?[address] ?[place] [address] ? , extension [phone] ? Pathology Report ? Surgical Pathology Report Name: OBIE ISMS Florentino ?Specimen #: [id number] Age: 12 1955 (Age: 65) ? [facility] ?Procedure Date: 03/18/2021 Hospital #: [id number] ?Date Received: 03/19/2021 Date Reported: 03/21/2021 Provider: [...] WITH REACTIVE CHANGES. Electronically Signed Out ? C. Luis Banegas M.D. [facility] Tissue specimen (specimen) STOMACH STRUCTURE / Unknown 03/18/2021 10:17 AM CDT Tissue specimen (specimen) STOMACH STRUCTURE / Unknown 03/18/2021 10:18 AM CDT us Gloria Navarro MD PATHOLOGY/CYTOLOGY ORDERABLES Final Result [facility] [address] [place] [address], [id number] documented in this encounter Visit Diagnoses Not [...] Avis Nix RN)0959 (Paused - Provider: Karen Sherfif CRNA - Comment: Switch to gravity)1000 (Restarted - Provider: Karen Sheriff CRNA)1026 (Anesthesia Volume Adjustment - Provider: Karen Sheriff CRNA)1102 (Infusion Stop Time - Provider: Evita Mane RN) documented in this encounter Care Teams Senior Landscape Architect Relationship Specialty Start Date End Date Megan Infante MD [address] [facility] [place] [address] PCP - General FAMILY PRACTICE 04/06/16 Piyush Pandey MD [place] Thickener Operator CARDIOVASCULAR DISEASE 04/06/16 12/28/23 Sharmila Davis APRN, DISTRIBUTED GENERATION PROJECT MANAGER-C [address] [address] NURSE PRACTITIONER 01/04/17 04/03/24 Linda Block MD [address] [phone] [place] Thickener Operator CLINICAL CARDIAC ELECTROPHYSIOLOGY 02/08/17 04/12/23 Jeff Grace MD [address] [address] Consulting Physician INTERNAL MEDICINE 02/20/19 3 Zaki Ortiz MD [address] [facility] [address] [phone] Consulting Physician PULMONARY DISEASE 07/12/19 documented as of this encounter
--- OUTSIDE RECORDS SUMMARY | 2024-09-03 19:13 | XMS_ITS | Encounter Summary ---
Author Organization [facility] Address [address] [place] [address]. [place] [address] [place] [address] Care Team Providers Care Oracle Applications Developer Name Role Phone Piyush Pandey MD Unavailable Unavailabl e Megan Infante MD Primary Care Provider [phone] Sharmila Davis APRN DAY CARE DIRECTOR-C Unavailable [phone] Linda Block MD Unavailable [phone] Jeff Grace MD Unavailable Zaki Ortiz MD Unavailable [phone] Encounter Details Date Type Department Care Team (Latest Contact Info) Description 10/30/2020 Travel Social History Tobacco Use Types Packs/Day [...] COVID-19? No / Unsure 10/30/2020 2:44 PM AUTOMATION MACHINE OPERATOR documented as of this encounter Plan of Treatment Upcoming Encounters Date Type Department Care Team (Late Contact Info) Description 09/25/2024 2:00 PM AUTOMATION MACHINE OPERATOR Appointment [facility] [address] [place] [address] Zayra Powell, VOLTMETER OPERATOR [address] [place] [phone] 10/16/2024 3:30 PM AUTOMATION MACHINE OPERATOR Office Visit [facility] [address] [place] [address] Brit Gonzáles MD [address] [place], [place] [phone] documented as of this encounter Visit Diagnoses Not on filedocumented in this encounter Care Teams Oracle Applications Developer Relationship Specialty Start Date End Date Megan Infante MD [address] [place] [address] PCP - General FAMILY PRACTICE 04/06/16 Piyush Pandey MD [place] [facility] Phys[facility] CARDIOVASCULAR DISEASE 04/06/16 12/28/23 Sharmila Davis APRN, DAY CARE DIRECTOR-C [address] [facility] [address] [place] [phone] NURSE PRACTITIONER 01/04/17 04/03/24 Linda Block MD [address] [facility] [address] [place] [phone] [place] [facility] Physician CLINICAL CARDIAC ELECTROPHYSIOLOGY 02/08/17 04/12/23 Jeff Grace MD [address] [facility] [address] [place] [phone] Consulting Physician INTERNAL MEDICINE 02/20/19 3 aZki Ortiz MD [address] [facility] [address] [place] [phone] Consulting Physician PULMONARY DISEASE 07/12/19 documented as of this encounter
--- OUTSIDE RECORDS SUMMARY | 2024-09-03 19:13 | XMS_ITS | Encounter Summary ---
Author Organization [facility] Address [address] [place] [address]. [place] [address] [place] [address] Care Team Providers Care Improvement Nurse Name Role Phone Piyush Pandey MD Unavailable Unavailabl e Megan Infante MD Primary Care Provider [phone] Sharmila Davis APRN INSPECTOR BULLET SLUGS-C Unavailable [phone] Linda Block MD Unavailable [phone] Jeff Grace MD Unavailable Zaki Ortiz MD Unavailable [phone] Encounter Details Date Type Department Care Team (Latest Contact Info) Description 02/08/2021 Travel Social History Tobacco Use Types Packs/Day [...] have Coronavirus / COVID-19? No / Unsure 02/08/2021 6:50 AM CDT documented as of this encounter Plan of Treatment Upcoming Encounters Date Type Department Care Team (Late st Contact Info) Description 09/25/2024 2:00 PM PROPULSION ENGINEER Appointment [facility] [address] [place] [address] Zayra Powell, UNDERCUTTER [address] [place] [address] 10/16/2024 3:30 PM PROPULSION ENGINEER Office Visit [facility] [address] [place] [phone] Brit Gonzáles MD [address] [place] [address] documented as of this encounter Visit Diagnoses Not on filedocumented in this encounter Additional Health Concerns Infection Onset Date Last Indicated Resolved Time COVID-19 Rule Out 02/08/2021 02/08/2021 02/08/2021 9:06 PM CDT documented as of this encounter Care Teams Improvement Nurse Relationship Specialty Start Date End Date Megan Infante MD [address] [facility] [place] [phone] PCP - General FAMILY PRACTICE 04/06/16 Piyush Pandey MD [place] Manager Express CARDIOVASCULAR DISEASE 04/06/16 12/28/23 Sharmila Davis, FORGING PRESS SETTER UP, INSPECTOR BULLET SLUGS-C [address] [facility] [address] [place] [phone] NURSE PRACTITIONER 01/04/17 04/03/24 Linda Block MD [address] [facility] [address] [place] [phone] [place] Manager [employer] CLINICAL CARDIAC ELECTROPHYSIOLOGY 02/08/17 04/12/23 Jeff Grace MD [address] [facility] [address] [place] [phone] Consulting Physician INTERNAL MEDICINE 02/20/19 3 Zaki Ortiz MD [address] [place] [phone] Consulting Physician PULMONARY DISEASE 07/12/19 documented as of this encounter
--- OUTSIDE RECORDS SUMMARY | 2024-09-03 19:13 | XMS_ITS | Encounter Summary ---
Author Organization [facility] Address [address] [place] [address]. [place] [address] [place] [address] Care Team Providers Care Technical Account Executive Name Role Phone Piyush Pandey MD Unavailable Unavailabl e Megan Infante MD Primary Care Provider [phone] Sharmila Davis APRN HAND UMBRELLA TIPPER-C Unavailable Linda Block MD Unavailable [phone] Jeff Grace MD Unavailable Zaki Ortiz MD Unavailable [phone] Encounter Details Date Type Department Care Team (Late st Contact Info) Description 02/18/2021 Orders Only [facility] [address] [place] [address] Jacquie Martel, PA-C [address] [place] [address] Social History Tobacco Use Types [...] Contact Info) Description 09/25/2024 2:00 PM ELECTRICAL LINE SPLICER Appointment [facility] [address] [facility] [place] [address] Zayra Powell, CASINO ATTENDANT [address] [place] [address] 10/16/2024 3:30 PM ELECTRICAL LINE SPLICER Office Visit [facility] [address] [facility] [address] [place] [address] Brit Gonzáles MD [address] [place] [address] documented as of this encounter Results * (ABNORMAL) BASIC METABOLIC PANEL (02/18/2021 12:06 PM CDT) SODIUM S/P/B 140 136 - 145 MMOL/L 02/18/2021 12:20 PM CDT [facility] POTASSIUM S/P/B 4.7 3.5 - 5.1 MMOL/L 02/18/2021 12:20 PM CDT [facility] CHLORIDE S/P/B 101 98 - 107 MMOL/L 02/18/2021 12:20 PM CDT [facility] CO2 30.8 21.0 - 32.0 MMOL/L 02/18/2021 12:20 PM CDT [facility] GLUCOSE 177(H) 70 - 99 MG/DL 02/18/2021 12:20 PM CDT [facility] Comment: FASTING GLUCOSE 100 TO 125 MG/DL IS CONSISTENT WITH IMPAIRED FASTING GLUCOSE. FASTING GLUCOSE >125 MG/DL IS CONSISTENT WITH DIABETES. RANDOM GLUCOSE >200 MG/DL WITH HYPERGLYCEMIC SYMPTOMS IS CONSISTENT WITH DIABETES. PER ADA GUIDELINES BUN 20 6 - 24 MG/DL 02/18/2021 12:20 PM CDT [facility] CREATININE S/P/B 1.37(H) 0.70 - 1.30 MG/DL 02/18/2021 12:20 PM CDT [facility] CALCIUM S/P/B 9.4 8.4 - 10.5 MG/DL 02/18/2021 12:20 PM CDT [facility] ANION GAP 8.2 5.0 - 15.0 MMOL/L 02/18/2021 12:20 PM CDT [facility] OSMOLALITY (CALC) 297 MOSM/KG 021 12:20 PM CDT [facility] Comment:REFERENCE RANGE NOT ESTABLISHED EGFR NON-AFR. AMER. 53(L) >89 ML/MIN/1. 73 M2 02/18/2021 12:20 PM CDT [facility] EGFR AFR. AMER. 62(L) >89 ML/MIN/1. 73 M2 02/18/2021 12:20 PM CDT [facility] GFR NOTES GFR REFERENCE S: 02/18/2021 12:20 PM CDT [facility] Comment: THE ESTIMATED GFR IS CALCULATED USING THE 2009 CKD-EPI EQUATION. THE FOLLOWING CATEGORIES FOR GRADING RENAL FUNCTION ARE RECOMMENDED BY THE INTERNATIONAL SOCIETY OF NEPHROLOGY (KDIGO 2012 CLINICAL PRACTICE GUIDELINE). G1,NORMAL OR HIGH: >89 ml/min/1.73 m2 G2,MILDLY DECREASED: 60-89 ml/min/1.73 m2 G3A,MILDLY TO MODERATELY DECREASED: 45-59 ml/min/1.73 m2 G3B,MODERATELY TO SEVERELY DECREASED: 30-44 ml/min/1.73 m2 G4,SEVERELY DECREASED: 15-29 ml/min/1.73 m2 G5,KIDNEY FAILURE: <15 ml/min/1.73 m2 02/18/2021 12:0 6 PM CDT us Jacquie Martel PA-C LABORATORY Final Resul t [facility] [address] [place] [address], * (ABNORMAL) PROTIME/INR, VENOUS (02/18/2021 12:06 PM CDT) PROTIME 30.6(H) 9.4 - 12.5 SEC 02/18/2021 12:18 PM CDT [facility] INR 2.7(H) 0.9 - 1.1 02/18/2021 12:18 PM CDT [facility] 02/18/2021 12:0 6 PM CDT us Jacquie Martel PA-C LABORATORY Final Resul t [facility] [address] [employer] [place] [address], documented in this encounter Visit Diagnoses Diagnosis Atrial fibrillation status post cardioversion ([facility] HHS/HCC)- Primary Cardiac complications Type 2 diabetes mellitus treated without insulin ([facility]) documented in this encounter Care Teams Technical Account Executive Relationship Specialty Start Date End Date Megan Infante MD [address] [place] [phone] PCP - General FAMILY PRACTICE 04/06/16 Piyush Pandey MD [place] Timber Supervisor CARDIOVASCULAR DISEASE 04/06/16 12/28/23 Sharmila Davis, LAWN SPRINKLER INSTALLER, HAND UMBRELLA TIPPER-C [address] [facility] [address] [place] [address] NURSE PRACTITIONER 01/04/17 04/03/24 Linda Block MD [address] [place] [address] [place] Timber Supervisor CLINICAL CARDIAC ELECTROPHYSIOLOGY 02/08/17 04/12/23 Jeff Grace MD [address] [place] [phone] Consulting Physician INTERNAL MEDICINE 02/20/19 3 Zaki Ortiz MD [address] [place] [address] Consulting Physician PULMONARY DISEASE 07/12/19 documented as of this encounter
--- OUTSIDE RECORDS SUMMARY | 2024-09-03 19:13 | XMS_ITS | Encounter Summary ---
Author Organization [facility] Address [facility] [place] [address] [place] [address] Care Team Providers Care Test Driller Name Role Phone Piyush Pandey MD Unavailable Unavailabl e Megan Infante MD Primary Care Provider [phone] Sharmila Davis APRN, HEADER BOSS-C Unavailable [phone] Linda Block MD Unavailable [phone] Jeff Grace MD Unavailable Zaki Ortiz MD Unavailable [phone] Reason for Referral * Imaging (Routine) - Closed Specialty Diagnoses / Procedures Referred By Contac t Referred To Contact Diagnoses Shortness of breath Procedures Six Minute Walk ([address]) Damaso Barnes MD [address] [place] [address] Phone: tel: fax: [address] [address] Phone: tel: Referral ID Status Reason Start Date Expiration Date Visits Re quested Visits Authorized [id number] Closed 11/03/2020 12/04/2021 1 1 * (Routine) - Closed Specialty Diagnoses / Procedures Referred By Contac t Referred To Contact Diagnoses Shortness of breath Procedures Complete PFT (pre/post [place], Lung Vol, Diff Capacity) (06349, 53358, 63381, 32485) Damaso Barnes MD [address] [place] [address] Phone: tel: fax: Referral ID Status Reason Start Date Expiration Date Visits Re quested Visits Authorized [id number] Closed 11/03/2020 12/04/2021 1 1 Reason for Visit * (Routine) - Closed Specialty Diagnoses / Procedures Referred By Contac t Referred To Contact Diagnoses Shortness of breath Procedures Complete PFT (pre/post [place], Lung Vol, Diff Capacity) (09766, 67354, 03667, 18760) Damaso Barnes MD [address] [place] [address] Phone: tel: fax: Referral ID Status Reason Start Date Expiration Date Visits Re quested Visits Authorized [id number] Closed 11/03/2020 12/04/2021 1 1 Encounter Details Date Type Department Care Team (Late st Contact Info) Description 03/26/2021 10:55 AM CDT - 03/26/2021 11:59 PM CDT Hospital Encounter [facility] [address] [place] [address] Damaso Barnes MD [address] [place] [address] Discharge Disposition: Home or Self [...] have Coronavirus / COVID-19? No / Unsure 03/26/2021 10:55 AM CDT documented as of this encounter [...] directed 2 documented as of this encounter Procedure Notes * Damaso Barnes MD - 03/26/2021 11:00 AM CDTAssociated Order(s): SIX MINUTE WALK Mr. Lay is a 65-year-old patient was taken up for 6-minute walk test for evaluation of dyspnea. Heart rate at rest on room air is 81 bpm pulse oximetry is 97%. He ambulated for 6 minutes. He does not desaturate below 93%. Maximum heart rate is 104 bpm. He is able to walk 160 yards. Recovery is uneventful. No desaturations are noted. In conclusion the 6-minute walk test does not show evidence of oxygen desaturation. The patient does not require supplemental oxygen. Tachycardia during activity would imply suboptimal cardiopulmonary conditioning of the patient. * Damaso Barnes MD - 03/26/2021 11:00 AM CDTAssociated Order(s): PULMONARY FUNCTION TEST Mr. Lay is a 65-year-old patient was taken up for pulmonary function testing for evaluation of dyspnea. He is 67 inches tall and weighs 225 pounds. Information available is that he quit smoking 45years ago. Flow-volume loop: Airway obstruction noted in terminal expiration in the effort independent region. Bronchodilator response is diagnostic of asthma. Sawtoothing of flow volume loop is identified. Spirometry: Reduced flow rates. Bronchodilator response is diagnostic of asthma. Review of flow rates: Baseline FEV1 is 1.42 L which is 50% of predicted. After bronchodilator FEV1 improves by 280 cc of 20%. This is diagnostic of asthma. Postbronchodilator FEV1 is 1.70 L which is 59% of predicted. Body plethysmography: Measurement of thoracic gas volumes by body plethysmography indicates measurement of lung volumes is reliable. TLC is minimally reduced FRC and RV are normal. Calculated ERV is 700 cc. Diffusing capacity: Jewell of phase 3 indicates measurement of diffusing capacity is reliable. This is reduced. It is 41% of predicted. Discussion: These pulmonary function test show complex abnormalities. There is airway obstruction with bronchodilator response diagnostic of asthma. Relatively normal lung volumes are consistent with a diagnosisof asthma. Low diffusing capacity is not consistent with a diagnosis of asthma. Indicates that a second problem is present. Common causes of low diffusing capacity would include severe anemia, pulmonary hypertension, pulmonary vascular disease or pulmonary embolic disease. In this patient pulmonary hypertension would be the most likely cause. It would be useful to obtain pulse oximetry at rest and during ambulation to identify exercise-induced oxygen desaturation to decide on a daytime oxygen prescriptionfor this patient. The shape of the flow volume loop indicates that this patient should be screened for nighttime hypoxia and associated sleep apnea syndrome as well additional cause of pulmonary hypertension and low diffusing capacity. Final conclusion: Complex abnormalities identified. Airway obstruction noted. Bronchodilator response is diagnostic of asthma. Low diffusing capacity identified. See discussion regarding common causes. See discussion regardingevaluation for daytime and nighttime hypoxia. documented in this encounter Plan of Treatment Upcoming Encounters Date Type Department Care Team (Late st Contact Info) Description 09/25/2024 2:00 PM MANAGER QA Appointment [facility] [place] [address] Zayra Powell, FISCAL ACCOUNTING CLERK [address] [place] [address] 10/16/2024 3:30 PM MANAGER QA Office Visit [facility] [place] [address] Brit Gonzáles MD [address] [place] [address] documented as of this encounter Procedures Procedure Name Priority Date/Time Associated Diagnosis Comments SIX MINUTE WALK Routine 03/26/2021 11:00 AM CDT Shortness of breath PULMONARY FUNCTION TEST Routine 03/26/2021 11:00 AM CDT Shortness of breath documented in this encounter Results * Six Minute Walk (64261) (03/26/2021 11:00 AM CDT) Narrative [facility] - 03/26/2021 11:00 AM CDT Damaso Barnes MD ? 03/28/2021 ??8:41 AM Mr. Lay is a 65-year-old patient was taken up for 6-minute walk test for evaluation of dyspnea. Heart rate at rest on room air is 81 bpm pulse oximetry is 97%. He ambulated for 6 minutes. ??He does not desaturate below 93%. ?? Maximum heart rate is 104 bpm. ??He is able to walk 160 yards. Recovery is uneventful. ??No desaturations are noted. In conclusion the 6-minute walk test does not show evidence of oxygen desaturation. ??The patient does not require supplemental oxygen. ??Tachycardia during activity would imply suboptimal cardiopulmonary conditioning of the patient. us Damaos Barnes MD PFT ORDERABLES Final Res ult [facility] [address] [place] [address], * Complete PFT (pre/post [place], Lung Vol, Diff Capacity) (77422, 69779, 37852, 04195) (03/26/2021 11:00 AM CDT) Narrative [facility] - 03/26/2021 11:00 AM CDT Damaso Barnes MD ? 03/28/2021 ??8:45 AM Mr. Lay is a 65-year-old patient was taken up for pulmonary function testing for evaluation of dyspnea. ??He is 67 inches tall and weighs 225 pounds. ??Information available is that he quit smoking 45 years ago. Flow-volume loop: Airway obstruction noted in terminal expiration in the effort independent region. ??Bronchodilator response is diagnostic of asthma. ??Sawtoothing of flow volume loop is identified. Spirometry: Reduced flow rates. ??Bronchodilator response is diagnostic of asthma. Review of flow rates: Baseline FEV1 is 1.42 L which is 50% of predicted. ??After bronchodilator FEV1 improves by 280 cc of 20%. ??This is diagnostic of asthma. ??Postbronchodilator FEV1 is 1.70 L which is 59% of predicted. Body plethysmography: Measurement of thoracic gas volumes by body plethysmography indicates measurement of lung volumes is reliable. ??TLC is minimally reduced FRC and RV are normal. ??Calculated ERV is 700 cc. Diffusing capacity: Jewell of phase 3 indicates measurement of diffusing capacity is reliable. ??This is reduced. ??It is 41% of predicted. Discussion: These pulmonary function test show complex abnormalities. ??There is airway obstruction with bronchodilator response diagnostic of asthma. ??Relatively normal lung volumes are consistent with a diagnosis of asthma. Low diffusing capacity is not consistent with a diagnosis of asthma. ??Indicates that a second problem is present. ??Common causes of low diffusing capacity would include severe anemia, pulmonary hypertension, pulmonary vascular disease or pulmonary embolic disease. ??In this patient pulmonary hypertension would be the most likely cause. ??It would be useful to obtain pulse oximetry at rest and during ambulation to identify exercise-induced oxygen desaturation to decide on a daytime oxygen prescription for this patient. The shape of the flow volume loop indicates that this patient should be screened for nighttime hypoxia and associated sleep apnea syndrome as well additional cause of pulmonary hypertension and low diffusing capacity. Final conclusion: Complex abnormalities identified. ?? Airway obstruction noted. ??Bronchodilator response is diagnostic of asthma. Low diffusing capacity identified. ??See discussion regarding common causes. ??See discussion regarding evaluation for daytime and nighttime hypoxia. us Damaso Barnes MD PFT ORDERABLES Final Res ult [facility] [address] [place] [address], documented in this encounter Visit Diagnoses Diagnosis Shortness of breath documented in this encounter Administered Medications Inactive Administered Medications - up to 3 most recent administrations Medication Order MAR Action Action Date Dose Rate Site albuterol sulfate HFA 108 (90 Base) MCG/ACT inhaler 2 puff 2 puff, Inhalation, Once, 1 dose, On Wed03/26/21 at 1115Indications:Shortness of breath Given 03/26/2021 11:25 AM CDT 2 puffs documented in this encounter Care Teams Test Driller Relationship Specialty Start Date End Date Megan Infante MD [address] [place] [address] PCP - General FAMILY PRACTICE 04/06/16 Piyush Pandey MD [place] Insurance Processing Clerk CARDIOVASCULAR DISEASE 04/06/16 12/28/23 Sharmila Davis, NAIL ARTIST, HEADER BOSS-C [address] [place] [address] [place] [address] NURSE PRACTITIONER 01/04/17 04/03/24 Linda Block MD [address] [facility] [address] [address] [place] Insurance Processing Clerk CLINICAL CARDIAC ELECTROPHYSIOLOGY 02/08/17 04/12/23 Jeff Grace MD [address] [facility] [address] [phone] Consulting Physician INTERNAL MEDICINE 02/20/19 3 Zaki Ortiz MD [address] [facility] [address] [place] [phone] Consulting Physician PULMONARY DISEASE 07/12/19 documented as of this encounter
--- OUTSIDE RECORDS SUMMARY | 2024-09-03 19:13 | XMS_ITS | Encounter Summary ---
Author Organization [facility] Address [address] [place] [address]. [place] [address] [place] [address] Care Team Providers Care Financial Processing Clerk Name Role Phone Piyush Pandey MD Unavailable Unavailabl e Megan Infante MD Primary Care Provider [phone] Sharmila Davis APRN OVERHEAD DISTRIBUTION ENGINEER-C Unavailable Linda Block MD Unavailable [phone] Jeff Grace MD Unavailable Zaki Ortiz MD Unavailable [phone] Reason for Visit * Reason Onset Date Comments Results 03/28/2021 Encounter Details Date Type Department Care Team (Late st Contact Info) Description 03/28/2021 Telephone [facility] [address] [address] Damaso Barnes MD [address] [place] [address] Results Social History Tobacco Use [...] Progress Notes * Abril Boles LPN - 03/28/2021 10:45 AM CDT Pt. aware test results back and appt. scheduled in [place] on 04/02/21 @ 10:40am. Voices understanding. documented in this encounter Plan of Treatment Upcoming Encounters Date Type Department Care Team (Late st Contact Info) Description 09/25/2024 2:00 PM COMMERCIAL ATTACHE Appointment [facility] [address] [place] [address] Zayra Powell, WARD SECRETARY [address] [place] [address] 10/16/2024 3:30 PM COMMERCIAL ATTACHE Office Visit [facility] [id number] [place] [phone] Brit Gonzáles MD [address] [place] [phone] documented as of this encounter Visit Diagnoses Not on filedocumented in this encounter Care Teams Financial Processing Clerk Relationship Specialty Start Date End Date Megan Infante MD [address] [place] [address] PCP - General FAMILY PRACTICE 04/06/16 Piyush Pandey MD [place] [employer] CARDIOVASCULAR DISEASE 04/06/16 12/28/23 Sharmila Davis, FIELD CASE MANAGER, OVERHEAD DISTRIBUTION ENGINEER-C [address] [place] [address] [address] [place] [address] NURSE PRACTITIONER 01/04/17 04/03/24 Linda Block MD [address] [facility] [address] [place] [phone] [place] [employer] CLINICAL CARDIAC ELECTROPHYSIOLOGY 02/08/17 04/12/23 Jeff Grace MD [address] [facility] [address] [phone] Consulting Physician INTERNAL MEDICINE 02/20/19 3 Zaki Ortiz MD [address] [facility] [address] [phone] Consulting Physician PULMONARY DISEASE 07/12/19 documented as of this encounter
--- OUTSIDE RECORDS SUMMARY | 2024-09-03 19:13 | XMS_ITS | Encounter Summary ---
Author Organization [facility] Address [address] [place] [address]. [place] [address] [place] [address] Care Team Providers Care Science Intern Name Role Phone Piyush Pandey MD Unavailable Unavailabl e Megan Infante MD Primary Care Provider [phone] Sharmila Davis APRN, LIGHT CLEANER-C Unavailable [phone] Linda Block MD Unavailable [phone] Jeff Grace MD Unavailable Zaki Ortiz MD Unavailable [phone] Encounter Details Date Type Department Care Team (Late st Contact Info) Description 10/30/2020 3:27 PM DRIVER OPERATOR - 10/30/2020 11:59 PM [facility] Hospital Encounter [facility] [address] [facility] [place] [address] Damaso Barnes MD [address] [place] [address] Discharge Disposition: Home or Self [...] COVID-19? No / Unsure 10/30/2020 2:44 PM DRIVER OPERATOR documented as of this encounter Medications at [...] I83.893 1 Container 6 04/11/2019 2 enoxaparin 100 MG/ML Inject 0.6 mLs (60 mg total) into the skin every 12 (twelve) hours. Start Wednesday morning and discontinue after doses on . 22.4 mL 09/10/2020 1 enoxaparin 60 MG/0.6ML Solution Stop warfarin 4 days prior to cath. Start Lovenox injections Day prior to cath - 60 mg every 12 hours. Last dose 12 hours prior to cath. 12 Syringe 08/27/2020 1 fluticasone propionate 50 MCG/ACT nasal spray 2 [...] 2 (two) times daily with meals. 3 mometasone-formo terol 200-5 MCG/ACT Aerosol Inhale into [...] mouth 3 (three) times daily. 08/26/2020 1 sertraline 100 MG tablet Take 150 mg [...] st Contact Info) Description 09/25/2024 2:00 PM DRIVER OPERATOR Appointment [facility] [address] [facility] [place] [address] Zayra Powell, CONTINUOUS CHURN BUTTERMAKER [address] [facility] [address] 10/16/2024 3:30 PM DRIVER OPERATOR Office Visit [facility] [address] [facility] [place] [phone] Brit Gonzáles MD [address] [place], [place] [address] documented as of this encounter Procedures Procedure Name Priority Date/Time Associated Diagnosis Comments RETICULOCYTE CT, AUTO Routine 10/30/2020 3:45 PM DRIVER OPERATOR Anemia, chronic disease SED RATE, ERYTHROCYTE (ESR) Routine 10/30/2020 3:45 PM DRIVER OPERATOR Anemia, chronic disease PROTHROMBIN TIME, VENOUS Routine 10/30/2020 3:45 PM DRIVER OPERATOR Anticoagulated LDH, LACTATE DEHYDROGENASE Routine 10/30/2020 3:45 PM DRIVER OPERATOR Anemia, chronic disease CBC, AUTO, NO DIFF Routine 10/30/2020 3: 45 PM DRIVER OPERATOR Anemia, chronic disease documented in this encounter Results * (ABNORMAL) PROTIME/INR, VENOUS (10/30/2020 3:45 PM DRIVER OPERATOR) PROTIME 41.7(H) 9.4 - 12.5 SEC 10/30/2020 4:02 PM DRIVER OPERATOR [facility] INR 3.7(H) 0.9 - 1.1 10/30/2020 4:02 PM DRIVER OPERATOR [facility] 10/30/2020 3:45 PM DRIVER OPERATOR us Damaso Barnes MD LABORATORY Final Res ult Performing Organization Address City/[facility]/ZIP Co de Phone Number [facility] [address] [place] [address], * LDH, LACTATE DEHYDROGENASE (10/30/2020 3:45 PM DRIVER OPERATOR) LDH 176 85 - 227 UNITS/L 10/30/2020 4:45 PM DRIVER OPERATOR [facility] 10/30/2020 3:45 PM DRIVER OPERATOR us Damaso Barnes MD LABORATORY Final Res ult Performing Organization Address [facility] Co de Phone Number [facility] [address] [place] [address], [place] [phone] * (ABNORMAL) SED RATE, ERYTHROCYTE (ESR) (10/30/2020 3:45 PM DRIVER OPERATOR) Pathologist [facility] ESR 47(H) 0 - 20 MM/HR 10/30/2020 4:40 PM DRIVER OPERATOR [facility] Comment:NOTE: ANEMIA, IF PRE SENT, MAY CAUSE AN ELEVATED SEDIMENTATION RATE. 10/30/2020 3:45 PM DRIVER OPERATOR us Damaso Barnes MD LABORATORY Final Res ult Performing Organization Address [facility] Co de Phone Number [facility] [address] [place] [address], [place] [phone] * RETICULOCYTE CT, AUTO (10/30/2020 3:45 PM DRIVER OPERATOR) RETICULOCYTE COUNT 1.7 0.7 - 2.3 % 10/30/2020 4:03 PM DRIVER OPERATOR [facility] ABSOLUTE RETICULOCYTE 0.07 0.03 - 0.11 x10'6/uL 10/30/2020 4:03 PM DRIVER OPERATOR [facility] IMMATURE RETIC FRACTION 12.3 2.3 - 13.4 % 10/30/2020 4:03 PM DRIVER OPERATOR [facility] RETIC HGB 33.3 28.0 - 35.0 PG 10/30/2020 4:03 PM DRIVER OPERATOR [facility] 10/30/2020 3:45 PM DRIVER OPERATOR us Damaso Barnes MD LABORATORY Final Res ult [facility] [address] [place] [address], * (ABNORMAL) CBC, AUTO, NO DIFF (10/30/2020 3:45 PM DRIVER OPERATOR) WBC 9.1 4.5 - 10.8 x10'3/uL 10/30/2020 4:03 PM [facility] RBC 4.46(L) 4.50 - 6.10 x10'6/uL 10/30/2020 4:03 PM [facility] HGB 12.2(L) 13.0 - 18.0 G/DL 10/30/2020 4:03 PM [facility] HCT 39.4 37.0 - 52.0 % 10/30/2020 4:03 PM [facility] MCV 88.3 78.0 - 100.0 FL 10/30/2020 4:03 PM [facility] MCH 27.4 27.0 - 31.0 PG 10/30/2020 4:03 PM [facility] MCHC 31.0(L) 33.0 - 36.0 G/DL 10/30/2020 4:03 PM [facility] RDW 14.2 11.5 - 14.5 % 10/30/2020 4:03 PM [facility] PLT 236 150 - 350 x10'3/uL 10/30/2020 4:03 PM DRIVER OPERATOR [facility] MPV 10.0 7.4 - 10.4 FL 10/30/2020 4:03 PM DRIVER OPERATOR [facility] 10/30/2020 3:45 PM DRIVER OPERATOR us Damaso Barnes MD LABORATORY Final Res ult [facility] [address] [place] [address], documented in this encounter Visit Diagnoses Diagnosis Anemia, chronic disease Anemia of other chronic disease Anticoagulated Encounter for long-term (current) use of anticoagulants documented in this encounter Care Teams Science Intern Relationship Specialty Start Date End Date Megan Infante MD [address] [facility] [place] [phone] PCP - General FAMILY PRACTICE 04/06/16 Piyush Pandey MD [place] Patient Services Specialist CARDIOVASCULAR DISEASE 04/06/16 12/28/23 Sharmila Davis APRN, LIGHT CLEANER-C [address] [id number] [place] [address] NURSE PRACTITIONER 01/04/17 04/03/24 Linda Block MD [address] [facility] [address] [place] [address] [place] Patient Services Specialist CLINICAL CARDIAC ELECTROPHYSIOLOGY 02/08/17 04/12/23 Jeff Grace MD [address] [facility] [address] [place] [address] Consulting Physician INTERNAL MEDICINE 02/20/19 3 Zaki Ortiz MD [address] [facility] [address] [place] [phone] Consulting Physician PULMONARY DISEASE 07/12/19 documented as of this encounter
--- OUTSIDE RECORDS SUMMARY | 2024-09-03 19:13 | XMS_ITS | Encounter Summary ---
Author Organization [facility] Address [address] [place] [address]. [place] [address] [place] [address] Care Team Providers Care Fsr Name Role Phone Piyush Pandey MD Unavailable Unavailabl e Megan Infante MD Primary Care Provider [phone] Sharmila Davis APRN DIP TUBE ASSEMBLER MACHINE-C Unavailable [phone] Linda Block MD Unavailable [phone] Jeff Grace MD Unavailable Zaki Ortiz MD Unavailable [phone] Reason for Visit * Reason Onset Date Comments Other 10/23/2020 refuses appt Encounter Details Date Type Department Care Team (Late st Contact Info) Description 10/23/2020 [facility] [place] [facility] [address] [place] [address] Piyush Pandey MD Other (refuses appt) Social History Tobacco Use Types Packs/Day Years [...] have Coronavirus / COVID-19? No / Unsure 10/10/2020 6:37 AM CERTIFIED WELDING INSPECTOR documented as of this encounter Progress Notes * Megan Lay RN - 10/23/2020 2:54 PM CST Noted. Referred to Dr. Barnes with [facility] pulm. Referral entered. They will contact pt to schedule. IFIED WELDING INSPECTOR * Deanne Baum CMA - 10/23/2020 2:41 PM CST Rita with Dr. Callahan & Dr. Glez called and stated that pt does not want to come to [facility] to see a neonatal surgeon, and that pt wants to see someone closer to where he lives. She stated that none of their pulmonologists see pts close to where he lives. Informed Rita that I will send a msg to Dr. Pandey's nurse. IFIED WELDING INSPECTOR documented in this encounter Plan of Treatment Upcoming Encounters Date Type Department Care Team (Late st Contact Info) Description 09/25/2024 2:00 PM CERTIFIED WELDING INSPECTOR Appointment [facility] [address] [place] [address] Zayra Powell, MANAGER PRIMARY [address] [place] [address] 10/16/2024 3:30 PM CERTIFIED WELDING INSPECTOR Office Visit [facility] [address] [place] [phone] Brit Gonzáles MD [address] [place] [address] documented as of this encounter Visit Diagnoses Not on filedocumented in this encounter Care Teams Fsr Relationship Specialty Start Date End Date Megan Infante MD [address] [place] [phone] PCP - General FAMILY PRACTICE 04/06/16 Piyush Pandey MD [place] [employer] Life Manager CARDIOVASCULAR DISEASE 04/06/16 12/28/23 Sharmila Davis APRN, DIP TUBE ASSEMBLER MACHINE-C [address] [facility] [address] [place] [phone] NURSE PRACTITIONER 01/04/17 04/03/24 Linda Block MD [address] [address] [place] [employer] Manager CLINICAL CARDIAC ELECTROPHYSIOLOGY 02/08/17 04/12/23 Jeff Grace MD [address] [address] Consulting Physician INTERNAL MEDICINE 02/20/19 3 Zaki Ortiz MD [address] [facility] [address] [address] Consulting Physician PULMONARY DISEASE 07/12/19 documented as of this encounter
--- OUTSIDE RECORDS SUMMARY | 2024-09-03 19:13 | XMS_ITS | Encounter Summary ---
Author Organization [facility] Address [address] [place] [address]. [place] [address] [place] [address] Care Team Providers Care Motorcycle Mechanic Name Role Phone Piyush Pandey MD Unavailable Unavailabl e Megan Infante MD Primary Care Provider [phone] Sharmila Davis APRN INSULATOR TECHNICIAN-C Unavailable [phone] Linda Block MD Unavailable [phone] Jeff Grace MD Unavailable Zaki Ortiz MD Unavailable [phone] Encounter Details Date Type Department Care Team (Latest Contact Info) Description 04/02/2021 Travel Social History Tobacco Use Types Packs/Day [...] have Coronavirus / COVID-19? No / Unsure 04/02/2021 10:33 AM CDT documented as of this encounter Plan of Treatment Upcoming Encounters Date Type Department Care Team (Late st Contact Info) Description 09/25/2024 2:00 PM COAL SHOVELER Appointment [facility] [address] [place] [address] Zayra Powell, DIRECTOR OF NUCLEAR MEDICINE [address] [place], [place] [id number] 10/16/2024 3:30 PM COAL SHOVELER Office Visit [facility] [address] [place] [address] Brit Gonzáles MD [address] [place], [place] [phone] documented as of this encounter Visit Diagnoses Not on filedocumented in this encounter Care Teams Motorcycle Mechanic Relationship Specialty Start Date End Date Megan Infante MD [address] [place] [address] PCP - General FAMILY PRACTICE 04/06/16 Piyush Pandey MD [place] Hand [employer]er CARDIOVASCULAR DISEASE 04/06/16 12/28/23 Sharmila Davis APRN, INSULATOR TECHNICIAN-C 619 [facility] 47 [place] [address] NURSE PRACTITIONER 01/04/17 04/03/24 Linda Block MD 619 [facility] [address] [place] [address] [place] Hand Mixer CLINICAL CARDIAC ELECTROPHYSIOLOGY 02/08/17 04/12/23 Jeff Grace MD 619 [facility] [address] [place] [address] Consulting Physician INTERNAL MEDICINE 02/20/19 3 Zaki Ortiz MD [address] [place] [address] Consulting Physician PULMONARY DISEASE 07/12/19 documented as of this encounter
--- OUTSIDE RECORDS SUMMARY | 2024-09-03 19:13 | XMS_ITS | Encounter Summary ---
Author Organization [facility] Address [address] [place] [address]. [place] [address] [place] [address] Care Team Providers Care Electronic Publisher Name Role Phone Piyush Pandey MD Unavailable Unavailabl e Megan Infante MD Primary Care Provider [phone] Sharmila Davis APRN FRAME STYLIST-C Unavailable Linda Block MD Unavailable [phone] Jeff Grace MD Unavailable Zaki Ortiz MD Unavailable [phone] Reason for Visit * Reason Onset Date Comments Appointment Request 10/15/2020 Encounter Details Date Type Department Care Team (Late st Contact Info) Description 10/15/2020 Telephone [facility] [address] [place] [address] Jeff Grace MD [address] [place], [place] [address] Appointment Request Social History Tobacco Use Types [...] COVID-19? No / Unsure 10/10/2020 6:37 AM SHOWROOM CONSULTANT documented as of this encounter Progress Notes * Kimberly Nkechi De León - 10/15/2020 2:41 PM CST Patient due for vascular follow up in [place] with Dr. Grace. I called patient, we scheduled the appointment for 11:30 AM. Reminder letter mailed per pt request. ROOM CONSULTANT documented in this encounter Plan of Treatment Upcoming Encounters Date Type Department Care Team (Late st Contact Info) Description 09/25/2024 2:00 PM SHOWROOM CONSULTANT Appointment [facility] [address] [place] [address] Zayra Powell, BASKET ASSEMBLER [address] [facility] [place] [address] 10/16/2024 3:30 PM SHOWROOM CONSULTANT Office Visit [facility] [address] [facility] [place] [address] Brit Gonzáles MD [address] [place] [address] documented as of this encounter Visit Diagnoses Not on filedocumented in this encounter Care Teams Electronic Publisher Relationship Specialty Start Date End Date Megan Infante MD [address] [facility] [place] [address] PCP - General FAMILY PRACTICE 04/06/16 Piyush Pandey MD [place] Dietetic Aide CARDIOVASCULAR DISEASE 04/06/16 12/28/23 Sharmila Davis, STRATEGIC ADVISOR, FRAME STYLIST-C [address] [place] [address] [place] [address] NURSE PRACTITIONER 01/04/17 04/03/24 Linda Block MD [address] [place] [address] [place] Dietetic Aide CLINICAL CARDIAC ELECTROPHYSIOLOGY 02/08/17 04/12/23 Jeff Grace MD [address] [facility] [address]25 [place] [address] Consulting Physician INTERNAL MEDICINE 02/20/19 3 Zaki Ortiz MD [address] [facility] [address] [place] [address] Consulting Physician PULMONARY DISEASE 07/12/19 documented as of this encounter
--- OUTSIDE RECORDS SUMMARY | 2024-09-03 19:13 | XMS_ITS | Encounter Summary ---
Author Organization [facility] Address [address] [place] [address]. [place] [address] [place] [address] Care Team Providers Care Director Of Instrumental Music Name Role Phone Piyush Pandey MD Unavailable Unavailabl e Megan Infante MD Primary Care Provider [phone] Sharmila Davis APRN SLURRY TANK OPERATOR-C Unavailable [phone] Linda Block MD Unavailable [phone] Jeff Grace MD Unavailable Zaki Ortiz MD Unavailable [phone] Encounter Details Date Type Department Care Team (Latest Contact Info) Description 03/07/2021 Travel Social History Tobacco Use Types Packs/Day [...] have Coronavirus / COVID-19? No / Unsure 03/07/2021 10:36 AM CDT documented as of this encounter Plan of Treatment Upcoming Encounters Date Type Department Care Team (Late st Contact Info) Description 09/25/2024 2:00 PM GIFT OFFICER Appointment [facility] [address] [place] [address] Zayra Powell, PROJECT INTERNSHIP [address] [place], [place] [phone] 10/16/2024 3:30 PM GIFT OFFICER Office Visit [facility] [address] [place] [address] Brit Gonzáles MD [address] [place], [place] [phone] documented as of this encounter Visit Diagnoses Not on filedocumented in this encounter Care Teams Director Of Instrumental Music Relationship Specialty Start Date End Date Megan Infante MD [address] [place] [address] PCP - General FAMILY PRACTICE 04/06/16 Piyush Pandey MD [place] Continuous Improvement Lead CARDIOVASCULAR DISEASE 04/06/16 12/28/23 Sharmila Davis APRN, SLURRY TANK OPERATOR-C 619 [facility] 47 [place] [address] NURSE PRACTITIONER 01/04/17 04/03/24 Linda Block MD 619 [facility] [address] [place] [address] [place] Continuous Improvement Lead CLINICAL CARDIAC ELECTROPHYSIOLOGY 02/08/17 04/12/23 Jeff Grace MD 619 [facility] [address] [place] [address] Consulting Physician INTERNAL MEDICINE 02/20/19 3 Zaki Ortiz MD [address] [place] [address] Consulting Physician PULMONARY DISEASE 07/12/19 documented as of this encounter
--- OUTSIDE RECORDS SUMMARY | 2024-09-03 19:13 | XMS_ITS | Encounter Summary ---
Author Organization [facility] Address [address] [place] [address]. [place] [address] [place] [address] Care Team Providers Care Senior Air Director Name Role Phone Piyush Pandey MD Unavailable Unavailabl e Megan Infante MD Primary Care Provider [phone] Sharmila Davis APRN SHINGLER-C Unavailable Linda Block MD Unavailable [phone] Jeff Grace MD Unavailable Zaki Ortiz MD Unavailable [phone] Reason for Visit * Reason Onset Date Comments Advice 11/03/2020 Encounter Details Date Type Department Care Team (Late st Contact Info) Description 11/03/2020 Telephone [facility] Multispecialty [address] [address] Damaso Barnes MD 17[address] [place] [address] Advice Social History Tobacco Use Types Packs/Day Years [...] COVID-19? No / Unsure 10/30/2020 2:44 PM SIGNAL PERSON documented as of this encounter Progress Notes * Damaso Barnes MD - 11/05/2020 10:40 AM CDT I called patient and gave him lab reports. Recommended we get urine analysis and stool for occult blood. Patient is agreeable. Reminded him to get his chest x- ray done. He will get all this done nextweek. documented in this encounter Plan of Treatment Upcoming Encounters Date Type Department Care Team (Late st Contact Info) Description 09/25/2024 2:00 PM SIGNAL PERSON Appointment [facility] [address] [place] [address] Zayra Powell, NEGATIVE CLEANER [address] [place] [address] 10/16/2024 3:30 PM SIGNAL PERSON Office Visit [facility] [address] [place] [address] Brit Gonzáles MD 619 [place] [address] documented as of this encounter Visit Diagnoses Not on filedocumented in this encounter Care Teams Senior Air Director Relationship Specialty Start Date End Date Megan Infante MD [address] [place] [address] PCP - General FAMILY PRACTICE 04/06/16 Piyush Pandey MD [employer] Pr Intern CARDIOVASCULAR DISEASE 04/06/16 12/28/23 Sharmila Davis, MILK RECEIVER TANK TRUCK, SHINGLER-C [address] [facility] [address] [place] [address] NURSE PRACTITIONER 01/04/17 04/03/24 Linda Block MD [address] [address] [employer] Pr Intern CLINICAL CARDIAC ELECTROPHYSIOLOGY 02/08/17 04/12/23 Jeff Grace MD [address] [address] Consulting Physician INTERNAL MEDICINE 02/20/19 3 Zaki Ortiz MD [address] [phone] Consulting Physician PULMONARY DISEASE 07/12/19 documented as of this encounter
--- OUTSIDE RECORDS SUMMARY | 2024-09-03 19:13 | XMS_ITS | Encounter Summary ---
Author Organization [facility] Address [address] [place] [address]. [place] [address] [place] [address] Care Team Providers Care Dental Instructor Name Role Phone Piyush Pandey MD Unavailable Unavailabl e Megan Infante MD Primary Care Provider [phone] Sharmila Davis APRN PAINTER INTERIOR FINISH-C Unavailable Linda Block MD Unavailable [phone] Jeff Grace MD Unavailable Zaki Ortiz MD Unavailable [phone] Reason for Visit * Reason Onset Date Comments Results 06/16/2021 Encounter Details Date Type Department Care Team (Late st Contact Info) Description 06/16/2021 Telephone [facility] Multispecialty [address] [address] Damaso Barnes MD 1730 [place] [address] Results Social History Tobacco Use [...] Notes * Abril Boles LPN - 06/19/2021 3:52 PM CDT Pt. Aware of all and voices understanding. documented in this encounter Plan of Treatment Upcoming Encounters Date Type Department Care Team (Late st Contact Info) Description 09/25/2024 2:00 PM AVIATION PROGRAM MANAGER Appointment [facility] [address] [place] [address] Zayra Powell, [facility] [address] [place] [address] 10/16/2024 3:30 PM AVIATION PROGRAM MANAGER Office Visit [facility] [address] [place] [address] Brit Gonzáles MD [address] [place] [address] documented as of this encounter Visit Diagnoses Not on filedocumented in this encounter Care Teams Dental Instructor Relationship Specialty Start Date End Date Megan Infante MD [address] [place] [address] PCP - General FAMILY PRACTICE 04/06/16 Piyush Pandey MD [place] Cotton Breeder CARDIOVASCULAR DISEASE 04/06/16 12/28/23 Sharmila Davis, AIRPLANE DISPATCHER, PAINTER INTERIOR FINISH-C [address] [place] [address] [address] [place] [address] NURSE PRACTITIONER 01/04/17 04/03/24 Linda Block MD [address] [place] [address] [place] Cotton Breeder CLINICAL CARDIAC ELECTROPHYSIOLOGY 02/08/17 04/12/23 Jeff Grace MD [address] [facility] [address] [place] [address] Consulting Physician INTERNAL MEDICINE 02/20/19 3 Zaki Ortiz MD [address] [facility] [address] [place] [address] Consulting Physician PULMONARY DISEASE 07/12/19 documented as of this encounter
--- OUTSIDE RECORDS SUMMARY | 2024-09-03 19:13 | XMS_ITS | Encounter Summary ---
Author Organization [facility] Address [address] [place] [address]. [place] [address] [place] [address] Care Team Providers Care Pole Climber Name Role Phone Piyush Pandey MD Unavailable Unavailabl e Megan Infante MD Primary Care Provider [phone] Sharmila Davis APRN TRANSPORT RN-C Unavailable [phone] Linda Block MD Unavailable [phone] Jeff Grace MD Unavailable Zaki Ortiz MD Unavailable [phone] Encounter Details Date Type Department Care Team (Latest Contact Info) Description 02/04/2021 Travel Social History Tobacco Use Types Packs/Day [...] have Coronavirus / COVID-19? No / Unsure 02/04/2021 1:36 PM CDT documented as of this encounter Plan of Treatment Upcoming Encounters Date Type Department Care Team (Late st Contact Info) Description 09/25/2024 2:00 PM ENTRY LEVEL MANAGEMENT Appointment [facility] [address] [place] [address] Zayra Powell, WILDLIFE VETERINARIAN [address] [place] [address] 10/16/2024 3:30 PM ENTRY LEVEL MANAGEMENT Office Visit [facility] [address] [place] [address] Brit Gonzáles MD 972 [place], [place] [phone] documented as of this encounter Visit Diagnoses Not on filedocumented in this encounter Care Teams Pole Climber Relationship Specialty Start Date End Date Megan Infante MD [address] [place] [address] PCP - General FAMILY PRACTICE 04/06/16 Piyush Pandey MD [place] Shingles Roofer Helper CARDIOVASCULAR DISEASE 04/06/16 12/28/23 Sharmila Davis APRN, TRANSPORT RN-C 619 [facility] [address] [place] [address] NURSE PRACTITIONER 01/04/17 04/03/24 Linda Block MD 619 [facility] [address] [place] [address] [place] Shingles Roofer Helper CLINICAL CARDIAC ELECTROPHYSIOLOGY 02/08/17 04/12/23 Jeff Grace MD 619 [facility] 47 [place] [address] Consulting Physician INTERNAL MEDICINE 02/20/19 3 Zaki Ortiz MD [address] [facility] [address] [place] [address] Consulting Physician PULMONARY DISEASE 07/12/19 documented as of this encounter
--- OUTSIDE RECORDS SUMMARY | 2024-09-03 19:13 | XMS_ITS | Encounter Summary ---
Author Organization [facility] Address [facility]ly [facility]6 [facility] [place] [address] [place] [address] Care Team Providers Care Manager Immunology Name Role Phone Piyush Pandey MD Unavailable Unavailabl e Megan Infante MD Primary Care Provider [phone] Sharmila Davis APRN EXTRACTION OPERATOR-C Unavailable Linda Block MD Unavailable [phone] Jeff Grace MD Unavailable Zaki Ortiz MD Unavailable [phone] Reason for Visit * Auth/Cert Specialty Diagnoses / Procedures Referred By Yung sequeira Referred To Contact Diagnoses DYSPHAGIA, HISTORY OF POLYPS Procedures UPPER GI ENDOSCOPY,BIOPSY COLONOSCOPY,DIAGNOSTIC EGD COLONOSCOPY DIAGNOSTIC WITH/WITHOUT SPECIMEN BRUSH/WASH Referral ID Status Reason Start Date Expiration Date Visits Re quested Visits Authorized [id number] 1 1 Encounter Details Date Type Department Care Team (Late st Contact Info) Description 03/18/2021 10:10 AM CDT Anesthesia Event [place] [address] [place] [address] Jaya Eastman MD [address] [place] [phone] Anesthesia Record Procedure Summary Procedure Name Responsible Anesthesiologist Anesthesia Start Time Anesthesia Stop Time EGD with biopsies, polypectomy, and dilation (44,48,52) (Esophagus) 03/18/21 1010 03/18/21 1035 Events Date Time Event Comment 03/18/2021 0912 AN FOOD PRODUCTION ASSOCIATE Prepped 0912 AN Anesthesia Prepped 0921 1010 An Start Patient ID and consent checked and patient reassessed. 1010 An Start Data 1010 Nasal Cannula Applied 1010 AN Immediate Reassess The pa tient was reevaluated immediately before sedation or regional anesthesia. 1018 Anesthesia Ready 1020 Face Mask Applied 1028 an stop data 1035 Post Anesthetic Care Handoff I completed my handoff to the receiving nurse during which we: 1. Identified the patient 2. Identified the responsible provider 3. Reviewed the pertinent medical history 4. Discussed the surgical course 5. Reviewed intra-op anesthesia management and issues during anesthesia 6. Set expectations for post-procedure period 7. Allowed opportunity for questions and acknowledgement of understanding. 1035 An Stop Meds Name Total propofol (DIPRIVAN) 500 mg/50 mL injecti on 132.73 mg propofol (DIPRIVAN) 500 mg/50 mL IV bolu s from infusion 160 mg lidocaine (XYLOCAINE) 1% injection 10 mL sodium chloride 0.9% infusion 400 mL * Agents Name Ancillary O2 * Blood No blood administrations on file. Lines, Drains, and Airways Type Details Placement Removal Peripheral IV Placement Date: 02/21 03/12; Placement Time: 0851; Placed Outside of This Facility?: No; Size: 20 G; Orientation: Distal, Right; Location: Brachial; Site Prep: Chlorhexidine; Inserted By: KEVIN MORRISSEY; Insertion attempts: 1; Ultrasound-guided Placement?: No; Patient Tolerance: Tolerated well; Removal Date: 03/18/21; Removal Time: 1102; Removal Reason: Patient Discharged 03/18/21 0851 by Avis Nix RN 03/18/21 1102 by Evita Mane RN documented in this encounter Social History [...] OR Notes * Anesthesia Postprocedure Evaluation - Sharri Ordonez CRNA - 03/18/2021 11:07 AM CDT Anesthesia Post-op Note [facility] Lay Procedure(s): EGD with biopsies and polypectomy (N/A Esophagus) COLONOSCOPY (Incomplete) (N/A Colon) Anesthesia type: MAC Vitals: 03/18/21 1101 BP: (!) 161/98 Vitals: 03/18/21 1101 Pulse: 73 Vitals: 03/18/21 1101 Resp: 18 Vitals: 03/18/21 1101 Temp: 36.6 ??C Vitals: 03/18/21 1101 SpO2: 99% Patient Location: Phase II/Outpatient Level of Consciousness: awake, alert and oriented Pain Management: adequate analgesia Airway Patency: patent Respiratory Status: acceptable, room air and spontaneous ventilation Cardiovascular Status: acceptable, blood pressure returned to baseline and stable Post-Op Nausea: none Postoperative Hydration: euvolemic There were no known complications for this encounter. * Anesthesia Preprocedure Evaluation - Sharri Ordonez CRNA - 03/14/2021 8:49 AM CDT Anesthesia ROS/MED History Reviewed: Patient summary , ECG, Family history anesthesia, Anesthesia history , Medications , Labs Pre-Anesthetic State: alert, awake and responds appropriately Pulmonary (+) COPD (O2 as needed for sleep) Cardiovascular Exercise tolerance:good (+) hypertension, Valvular problems/Murmurs (had Bioprosthetic AVR in 2013), (), CAD, CHF, arrhythmia (had ablation), (A-fib), Peripheral vascular disease, hyperlipidemia Neuro/Psych (+) TIA (Jun 2020), CVA GI/Hepatic/Renal (+) GERD, (well controlled), renal disease (cr 1.37), (CRI) Endo/Other (+) diabetes mellitus (bg 100), obese GENERAL COMMENTS Albuterol & Other Inhalers-yesterday albuterol ASA-yesterday Coreg-this am Enoxaparin-yesterday Losartan Pantoprazole-yesterday Coumadin-3 days ago 02/11/21 [facility]FL UROLOGY / [facility] Main OR EGD (N/A ) COLONOSCOPY DIAGNOSTIC WITH/WITHOUT SPECIMEN BRUSH/WASH (N/A ) ECHO 10/10/20 Mild mitral regurgitation. 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 Mild concentric left ventricular hypertrophy. The left ventricular systolic function is normal. Estimated left ventricular ejection fraction is 55%. Biatrial enlargement with spontaneous contrast. No overt thrombus or PFO. The thoracic aorta is moderately atherosclerotic. Trace tricuspid regurgitation. Unable to reliably quantitate pulmonary systolic pressure. Cardiol Eval 11/26/2020 65-year-old male whose cardiovascular history consists of: [...] 6. Atrial fibrillation. Patient on chronic Coumadin. Physical Evaluation Airway Mallampati: II TM Distance: >3 FB Neck ROM: normal Dental Comment: Some missing, patient states nothing is loose Pulmonary Pulmonary exam normal Breath sounds clear to auscultation Cardiovascular Rhythm: irregular Rate: irregular Anesthesia Plan ASA 4 Induction Anesthesia type: MAC Informed Consent Anesthetic plan and risks discussed with patient of whom consent was obtained. Use of blood products discussed with patient of whom consent was obtained. . documented in this encounter Plan of Treatment Upcoming Encounters Date Type Department Care Team (Late st Contact Info) Description 09/25/2024 2:00 PM ENTERTAINMENT LAWYER Appointment [facility] [address] [facility] [address] [place], [place] [phone] Zayra Powell, GEAR TECHNICIAN [address] [facility] [place] [address] 10/16/2024 3:30 PM ENTERTAINMENT LAWYER Office Visit [facility] [address] [facility] [place] [address] Brit Gonzáles MD [address] [place], [place] [address] documented as of this encounter Visit Diagnoses Not on filedocumented in this encounter Administered Medications Inactive Administered Medications - up to 3 most recent administrations Medication Order MAR Action Action Date Dose Rate Site lidocaine (XYLOCAINE) 1 % injection SOLN Intravenous, PRN, Starting on Wed03/18/21 at 1013, Until Wed03/18/21 at 1035, Anesthesia Intra-Op Given 03/18/2021 10:13 AM CDT 10 mLs propofol (DIPRIVAN) 500 mg/50 mL bolus Intravenous, PRN, Starting on Wed03/18/21 at 1013, Until Wed03/18/21 at 1035, Anesthesia Intra-Op Given 03/18/2021 10:18 AM CDT 30 mg Given 03/18/2021 10:16 AM CDT 30 mg Given 03/18/2021 10:14 AM CDT 30 mg propofol (DIPRIVAN) IV bolus Intravenous, Continuous PRN, Starting on Wed03/18/21 at 1013, Until Wed03/18/21 at 1035, Anesthesia Intra-Op New Bag 03/18/2021 10:13 AM CDT 100 mcg/kg/min 61.26 mL/hr sodium chloride 0.9% infusion at 10 mL/hr, Intravenous, Continuous, Starting on Wed03/18/21 at 0845, Until Wed03/18/21 at 1327, Infuse at TKO rate. Use mini-drip tubing for ESRD patients., Pre-Op Restarted 03/18/2021 10:00 AM CDT New Bag 03/18/2021 8:52 AM CDT 10 mL/hr documented in this encounter Care Teams Manager Immunology Relationship Specialty Start Date End Date Megan Infante MD [address] [place] [place] [address] PCP - General FAMILY PRACTICE 04/06/16 Piyush Pandey MD [place] Mold Breaker CARDIOVASCULAR DISEASE 04/06/16 12/28/23 Sharmila Davis APRN, EXTRACTION OPERATOR-C [address] [address] NURSE PRACTITIONER 01/04/17 04/03/24 Linda Block MD [address] [address] [place] Mold Breaker CLINICAL CARDIAC ELECTROPHYSIOLOGY 02/08/17 04/12/23 Jeff Grace MD [address] [address] Consulting Physician INTERNAL MEDICINE 02/20/19 3 Zaki Ortiz MD [address] [address] Consulting Physician PULMONARY DISEASE 07/12/19 documented as of this encounter
--- OUTSIDE RECORDS SUMMARY | 2024-09-03 19:13 | XMS_ITS | Encounter Summary ---
Author Organization [facility] Address [facility] [place] [address] [place] [address] Care Team Providers Care Instructional Support Assistant Name Role Phone Piyush Pandey MD Unavailable Unavailabl e Megan Infante MD Primary Care Provider [phone] Sharmila Davis APRN ASSISTANT TENNIS COACH-C Unavailable [phone] Linda Block MD Unavailable [phone] Jeff Grace MD Unavailable Zaki Ortiz MD Unavailable [phone] Reason for Visit * Reason Comments Lab (SCAN) Encounter Details Date Type Department Care Team (Latest Contact Info) Description 05/15/2021 Scan HEALTH INFO SRVCS Scanned, Documents Lab (SCAN) Social History Tobacco Use Types Packs/Day [...] st Contact Info) Description 09/25/2024 2:00 PM MOLDING PLASTERER Appointment [facility] [address] [place] [address] Andre Zayra K, ELECTRICIAN SOUND [address] [place], [place] [phone] 10/16/2024 3:30 PM MOLDING PLASTERER Office Visit [facility] [address] [place] [address] Brit Gonzáles MD [address] [place], [place] [phone] documented as of this encounter Procedures Procedure Name Priority Date/Time Associated Diagnosis Comments OUTSIDE LAB (SCAN ORDER) Routine 06/04/2020 HEMOGLOBIN, GLYCOSYLATED Routine 06/04/2020 documented in this encounter Results * HEMOGLOBIN, GLYCOSYLATED (06/04/2020) HGB A1C 6.1 % 06/04/2020 Doc [facility]ORAT[facility] Final Result * OUTSIDE LAB (SCAN) (06/04/2020) 06/04/2020 us Documents Scanned SCANNING Final Result [facility] documented in this encounter Visit Diagnoses Not on filedocumented in this encounter Care Teams Instructional Support Assistant Relationship Specialty Start Date End Date Megan Infante MD [address] [place] [phone] PCP - General FAMILY PRACTICE 04/06/16 Piyush Pandey MD [place] Estate Planning Attorney CARDIOVASCULAR DISEASE 04/06/16 12/28/23 Sharmila Davis APRN, ASSISTANT TENNIS COACH-C [address] [facility] [address] [place] [phone] NURSE PRACTITIONER 01/04/17 04/03/24 Linda Block MD [address] [facility] [address] [phone] [place] Estate Planning Attorney CLINICAL CARDIAC ELECTROPHYSIOLOGY 02/08/17 04/12/23 Jeff Grace MD [address] [phone] Consulting Physician INTERNAL MEDICINE 02/20/19 3 Zaki Ortiz MD [address] [facility] [address] [phone] Consulting Physician PULMONARY DISEASE 07/12/19 documented as of this encounter
--- OUTSIDE RECORDS SUMMARY | 2024-09-03 19:13 | XMS_ITS | Encounter Summary ---
Author Organization [facility] Address [facility] [place] [address] [place] [address] Care Team Providers Care Hydrotechnical Specialist Name Role Phone Piyush Pandey MD Unavailable Unavailabl e Megan Infante MD Primary Care Provider [phone] Sharmila Davis APRN, TANK STORAGE SUPERVISOR-C Unavailable [phone] Linda Block MD Unavailable [phone] Jeff Grace MD Unavailable Zaki Ortiz MD Unavailable [phone] Reason for Referral * Sleep Lab (Routine) - Closed Specialty Diagnoses / Procedures Referred By Yung sequeira Referred To Contact Diagnoses Obstructive sleep apnea (adult) (pediatric) Procedures Limited Channel Unattended (Home Study) (G0399) Damaso Barnes MD [address] [place] [address] Phone: tel: fax: [address] [address] Phone: tel: Referral ID Status Reason Start Date Expiration Date Visits Re quested Visits Authorized [id number] Closed 02/27/2021 03/30/2022 1 1 Reason for Visit * Sleep Lab (Routine) - Closed Specialty Diagnoses / Procedures Referred By Yung sequeira Referred To Contact Diagnoses Obstructive sleep apnea (adult) (pediatric) Procedures Limited Channel Unattended (Home Study) (G0399) Damaso Barnes MD [address] [place] [address] Phone: tel: fax: [facility] [address] [place] [address] Phone: tel: Referral ID Status Reason Start Date Expiration Date Visits Re quested Visits Authorized [id number] Closed 02/27/2021 03/30/2022 1 1 Encounter Details Date Type Department Care Team (Late st Contact Info) Description 05/20/2021 6:53 PM CDT - 05/20/2021 11:59 PM CDT Hospital Encounter [facility] [address] [place] [address] Damaso Barnes MD [address] [place] [address] Discharge Disposition: Home or Self [...] 2 (two) times daily with meals. 3 montelukast 10 MG tabletIndications :Moderate persistent asthma [...] Procedure Notes * Damaso Barnes MD - 05/20/2021 7:00 PM CDTAssociated Order(s): LIMITED CHANNEL UNATTENDED (HOME STUDY) Mr. Lay is a 65-year-old patient was taken up for home sleep study because of symptoms of sleep apnea syndrome. He is 67 inches tall and weighs 205 pounds. BMI 32.2. Airflow at the mouth and nose was monitored on a continuous basis along with movements of the chestand the abdominal wall. Heart rate rhythm and pulse oximetry was also monitored continuously. Information available is that the patient is on treatment for mood disorder, systemic hypertension and heart disease. The study is completed utilizing type III devices. Total duration of analysis is 524 minutes. During this time we identified 14 obstructive apneas. There are 26 central apneas. There are 21 hypopneas. AHI for the study is 10.0. Average oxygen saturation for the study is 91%. Desaturations are noted. Oxygen saturation of 48% was recorded even though pulse oximetry is not reliable below 70%. The patient spent about 32% of testing time with saturations below 90%. During the study the patient's heart rhythm showed sinus rhythm with self- limited sinus tachycardia. There are no pauses, there are no dysrhythmias. Discussion: The study is positive for sleep apnea syndrome. AHI is increased at 10. AHI is typically underestimated during a home sleep study. Hypoxic burden is noted for 32% of testing [...] underestimated during a home sleep study. This patient meets criteria for CPAP therapy with [...] Final diagnosis: Obstructive sleep apnea G 47.33 documented in this encounter Plan of Treatment Upcoming Encounters Date Type Department Care Team (Late st Contact Info) Description 09/25/2024 2:00 PM HEALTH SCIENCE SPECIALIST Appointment [facility] [address] [place] [address] Zayra Powell FNP [address] [place] [address] 10/16/2024 3:30 PM HEALTH SCIENCE SPECIALIST Office Visit [facility] [place] [address] Brit Gonzáles MD [address] [place] [address] documented as of this encounter Procedures Procedure Name Priority Date/Time Associated Diagnosis Comments LIMITED CHANNEL UNATTENDED (HOME STUDY) Routine 05/20/2021 7:00 PM CDT Obstructive sleep apnea (adult) (pediatric) documented in this encounter Results * Limited Channel Unattended (Home Study) (G0399) (05/20/2021 7:00 PM CDT) Narrative [facility] - 05/20/2021 7:00 PM CDT [...] sleep apnea G 47.33 Procedure Note Damaso Barnes MD - 05/20/2021 7:00 PM CDT Mr. [...] Final diagnosis: Obstructive sleep apnea G 47.33 us Damaso Barnes MD SLEEP CENTER ORDERABLES F inal Result [facility] [place] [address], documented in this encounter Visit Diagnoses Diagnosis Obstructive sleep apnea (adult) (pediatric) documented in this encounter Care Teams Hydrotechnical Specialist Relationship Specialty Start Date End Date Megan Infante MD Count includes the [facility] [place] [address] PCP - General FAMILY PRACTICE 04/06/16 Piyush Pandey MD [place] Quality Control Representative CARDIOVASCULAR DISEASE 04/06/16 12/28/23 Sharmila Davis, NUCLEAR POWERPLANT SUPERVISOR, TANK STORAGE SUPERVISOR-C [address] [phone] NURSE PRACTITIONER 01/04/17 04/03/24 Linda Block MD [address] [facility] [address] [phone] [place] Quality Control Representative CLINICAL CARDIAC ELECTROPHYSIOLOGY 02/08/17 04/12/23 Jeff Grace MD [address] [facility] [address] [phone] Consulting Physician INTERNAL MEDICINE 02/20/19 3 Zaki Ortiz MD [address] [facility] [address] [place] [phone] Consulting Physician PULMONARY DISEASE 07/12/19 documented as of this encounter
--- OUTSIDE RECORDS SUMMARY | 2024-09-03 19:13 | XMS_ITS | Encounter Summary ---
Author Organization [facility] Address [address] [place] [address]. [place] [address] [place] [address] Care Team Providers Care Health And Fitness Professor Name Role Phone Piyush Pandey MD Unavailable Unavailabl e Megan Infante MD Primary Care Provider [phone] Sharmila Davis APRN, NP-C Unavailable Linda Block MD Unavailable [phone] Jeff Grace MD Unavailable Zaki Ortiz MD Unavailable [phone] Reason for Visit * Reason Onset Date Comments Referral 10/23/2020 Encounter Details Date Type Department Care Team (Late st Contact Info) Description 10/23/2020 Telephone [facility] [address] [place] [phone] Piyush Pandey MD Referral Social History Tobacco Use Types Packs/Day Years [...] COVID-19? No / Unsure 10/10/2020 6:37 AM REHAB THERAPIST documented as of this encounter Progress Notes * Megan Lay RN - 10/23/2020 11:16 AM CST Zaria from Dr. Callahan's office called back. She contacted pt, and he does not want to schedule appt at this time. He will call when he is ready to schedule. Zaria states she will check back in with pt in a few weeks to see if he is ready to schedule. B THERAPIST * Megan Lay RN - 10/23/2020 11:02 AM CST Spoke to [facility] pulmonary to refer pt for pulmonary HTN and sleep apnea. They will contact pt to schedule. Records faxed to [phone]. B THERAPIST documented in this encounter Plan of Treatment Upcoming Encounters Date Type Department Care Team (Late st Contact Info) Description 09/25/2024 2:00 PM REHAB THERAPIST Appointment [facility] [address] [place] [address] Zayra Powell, PITCH FLAKER [address] [place] [address] 10/16/2024 3:30 PM REHAB THERAPIST Office Visit [facility] [address] [place] [phone] Brit Gonzáles MD [address] [place] [address] documented as of this encounter Visit Diagnoses Not on filedocumented in this encounter Care Teams Health And Fitness Professor Relationship Specialty Start Date End Date Megan Infante MD [address] [place] [phone] PCP - General FAMILY PRACTICE 04/06/16 Piyush Pandey MD [place] Cougar Hunter CARDIOVASCULAR DISEASE 04/06/16 12/28/23 Sharmila Davis APRN, MOTOCROSS RACER-C [address] [facility] [address] [place] [phone] NURSE PRACTITIONER 01/04/17 04/03/24 Linda Block MD [address] [facility] [address] [phone] [place] CLINICAL CARDIAC ELECTROPHYSIOLOGY 02/08/17 04/12/23 Jeff Grace MD [address] [facility] [address] [place] [phone] Consulting Physician INTERNAL MEDICINE 02/20/19 3 Zaki Ortiz MD [address] [facility] [address] [place] [phone] Consulting Physician PULMONARY DISEASE 07/12/19 documented as of this encounter
--- OUTSIDE RECORDS SUMMARY | 2024-09-03 19:13 | XMS_ITS | Encounter Summary ---
Author Organization [facility] Address [address] [place] [address]. [place] [address] [place] [address] Care Team Providers Care Agile Business Analyst Name Role Phone Piyush Pandey MD Unavailable Unavailabl e Megan Infante MD Primary Care Provider [phone] Sharmila Davis APRN CATH LAB-C Unavailable [phone] Linda Block MD Unavailable [phone] Jeff Grace MD Unavailable Zaki Ortiz MD Unavailable [phone] Encounter Details Date Type Department Care Team (Latest Contact Info) Description 02/18/2021 Travel Social History Tobacco Use Types Packs/Day [...] st Contact Info) Description 09/25/2024 2:00 PM VP SALES Appointment [facility] [address] [place] [address] Zayra Powell, ASSISTANT DESIGNER [address] [place] [phone] 10/16/2024 3:30 PM VP SALES Office Visit [facility] [address] [place] [address] Brit Gonzáles MD [address] [place], [place] [phone] documented as of this encounter Visit Diagnoses Not on filedocumented in this encounter Care Teams Agile Business Analyst Relationship Specialty Start Date End Date Megan Infante MD [address] [place] [address] PCP - General FAMILY PRACTICE 04/06/16 Piyush Pandey MD [place] Grease Machine Worker CARDIOVASCULAR DISEASE 04/06/16 12/28/23 Sharmila Davis APRN, CATH LAB-C [address] [facility] [address] [place] [phone] NURSE PRACTITIONER 01/04/17 04/03/24 Linda Block MD [address] [facility] [address] [place] [phone] [place] Grease Machine Worker CLINICAL CARDIAC ELECTROPHYSIOLOGY 02/08/17 04/12/23 Jeff Grace MD [address] [facility] [address] [place] [phone] Consulting Physician INTERNAL MEDICINE 02/20/19 3 Zaki Ortiz MD [address] [email or web address] [address] [place] [phone] Consulting Physician PULMONARY DISEASE 07/12/19 documented as of this encounter
--- OUTSIDE RECORDS SUMMARY | 2024-09-03 19:13 | XMS_ITS | Encounter Summary ---
Author Organization [facility] Address [address] [place] [address]. [place] [address] [place] [address] Care Team Providers Care Glass Blower Helper Name Role Phone Piyush Pandey MD Unavailable Unavailabl e Megan Infante MD Primary Care Provider [phone] Sharmila Davis APRN SUPERVISOR PASTE MIXING-C Unavailable [phone] Linda Block MD Unavailable [phone] Jeff Grace MD Unavailable Zaki Ortiz MD Unavailable [phone] Encounter Details Date Type Department Care Team (Late st Contact Info) Description 02/08/2021 Orders Only [facility] [address] [place] [address] Kilo Navarro MD [address] [place] [address] Social History Tobacco Use Types [...] st Contact Info) Description 09/25/2024 2:[address] [facility] [address] [place] [address] Zayra Powell, PROGRAM TRAINER [address] [place] [address] 10/16/2024 3:30 PM HEADER BOSS Office Visit [facility] [address] [place] [phone] Brit Gonzáles MD [address] [place] [address] documented as of this encounter Results * PRE-SURGICAL/PRE-PROCEDURE CORONAVIRUS (COVID 19) (02/08/2021 6:57 AM CDT) SPEC DESCRIPTION NASOPHARYNGEAL SWAB 02/08/2021 6:57 AM CDT [facility] CORONAVIRUS SARS COV 2 PCR (RESP) NEGATIVE NEGATIVE 02/08/2021 9:06 PM CDT [facility] Comment: THE SARS-CoV-2 TEST HAS BEEN AUTHORIZED BY THE FDA UNDER AN EUA FOR USE BY AUTHORIZED LABORATORIES. PERFORMED BY NUCLEIC ACID AMPLIFICATION PCR FIRST TEST UNKNOWN 02/08/2021 6:57 AM CDT [facility] EMPLOYED IN HEALTHCARE NO 02/08/2021 6:57 AM CDT [facility] SYMPTOMATIC DEFINED BY CDC UNKNOWN 02/08/2021 6:57 AM CDT [facility] HOSPITALIZATION STATUS NO 02/08/2021 6:57 AM CDT [facility] PATIENT IN ICU NO 02/08/2021 6:57 AM CDT [facility] RESIDENT OF [facility] NO 02/08/2021 6:57 AM CDT [facility] NASOPHARYNGEAL SWAB / Unknown 02/08/2021 6:57 AM CDT us Kilo Navarro MD MICROBIOLOGY - GENERAL ORDERA BLES Final Result [facility] [address] [place] [address], [facility] [address] [place] [address], [place] [phone] documented in this encounter Visit Diagnoses Diagnosis Pre-operative laboratory examination- Primary Pre-procedural laboratory examination documented in this encounter Additional Health Concerns Infection Onset Date Last Indicated Resolved Time COVID-19 Rule Out 02/08/2021 02/08/2021 02/08/2021 9:06 PM CDT documented as of this encounter Care Teams Glass Blower Helper Relationship Specialty Start Date End Date Megan Infante MD [address] [place] [address] PCP - General FAMILY PRACTICE 04/06/16 Piyush Pandey MD [place] Pretzel Packer CARDIOVASCULAR DISEASE 04/06/16 12/28/23 Sharmila Davis APRN, SUPERVISOR PASTE MIXING-C [address] [phone] NURSE PRACTITIONER 01/04/17 04/03/24 Linda Block MD [address] [phone] [place] Pretzel Packer CLINICAL CARDIAC ELECTROPHYSIOLOGY 02/08/17 04/12/23 Jeff Grace MD [address] [phone] Consulting Physician INTERNAL MEDICINE 02/20/19 3 Zaki Ortiz MD [address] [facility] [address] [place] [address] Consulting Physician PULMONARY DISEASE 07/12/19 documented as of this encounter
--- OUTSIDE RECORDS SUMMARY | 2024-09-03 19:13 | XMS_ITS | Encounter Summary ---
Author Organization [facility] Address [facility] [place] [address] [place] [address] Care Team Providers Care Freezer Machine Operator Name Role Phone Piyush Pandey MD Unavailable Unavailabl e Megan Infante MD Primary Care Provider [phone] Sharmila Davis APRN, GLOVE BRUSHER-C Unavailable [phone] Linda Block MD Unavailable [phone] Jeff Grace MD Unavailable Zaki Ortiz MD Unavailable [phone] Reason for Referral * Imaging (Routine) - Closed Specialty Diagnoses / Procedures Referred By Contac t Referred To Contact Diagnoses Shortness of breath Procedures Six Minute Walk ([id number]) Enoch Barnes MD [address] [place] [address] Phone: tel: fax: [address] [address] Phone: tel: Referral ID Status Reason Start Date Expiration Date Visits Re quested Visits Authorized [id number] Closed 11/03/2020 12/04/2021 1 1 * (Routine) - Closed Specialty Diagnoses / Procedures Referred By Contac t Referred To Contact Diagnoses Shortness of breath Procedures Complete PFT (pre/post [place], Lung Vol, Diff Capacity) (74874, 23535, 96858, 72565) Enoch Barnes MD [address] [place] [address] Phone: tel: fax: Referral ID Status Reason Start Date Expiration Date Visits Re quested Visits Authorized [id number] Closed 11/03/2020 12/04/2021 1 1 Reason for Visit * Reason Comments New Patient Pulm. HTN * Consultation (Routine) - Closed Specialty Diagnoses / Procedures Referred By Contac t Referred To Contact SLEEP & RESPIRATORY CARE Diagnoses Pulmonary hypertension ([facility]) Sleep apnea Piyush Pandey MD Prabhu, Manjeshwar B, MD [address] [place] [address] Phone: tel: fax: Referral ID Status Reason Start Date Expiration Date V isits Requested Visits Authorized [id number] Closed Specialty Services 10/23/2020 11/23/2021 100 100 Encounter Details Date Type Department Care Team (Late st Contact Info) Description 10/30/2020 3:20 PM BUSINESS INTEGRATION MANAGER Office Visit [facility] [address] [address] Enoch Barnes MD [address] [place] [address] New Patient (Pulm. HTN) Social History Tobacco Use Types Packs/Day Years [...] COVID-19? No / Unsure 10/30/2020 2:44 PM BUSINESS INTEGRATION MANAGER documented as of this encounter Last Filed Vital Signs Vital Sign Reading Time Taken Comments Blood Pressure 136/72 10/30/2020 2:50 PM BUSINESS INTEGRATION MANAGER Pulse 78 10/30/2020 2:50 PM BUSINESS INTEGRATION MANAGER Temperature - - Respiratory Rate 20 10/30/2020 2:50 PM BUSINESS INTEGRATION MANAGER Oxygen Saturation 95% 10/30/2020 2:50 PM BUSINESS INTEGRATION MANAGER Inhaled Oxygen Concentration - - Weight 93.1 kg (205 lb 3.2 oz) 10/30/2020 2:50 P M BUSINESS INTEGRATION MANAGER Height 170.2 cm (5' 7 ) 10/30/2020 2:50 PM BUSINESS INTEGRATION MANAGER Body Mass Index 32.14 10/30/2020 2:50 PM BUSINESS INTEGRATION MANAGER documented in this encounter Progress Notes * Enoch Barnes MD - 10/30/2020 3:20 PM CST Reason for visit New Patient (Pulm. HTN) HPI Mendez Lay is referred by Dr. Pandey and Dr. Infante and comes in today for evaluation of pulmonary hypertension. On 12 point review of systems the following important features are identified. The patient describes occasional chest discomfort. He has been evaluated by cardiology. He has occasional cough without any sputum. No hemoptysis. No fever chills or pleuritic pain. Sometimes the cough is worse on reclining. Occasionally it will disturb his sleep at about 2:00 in the morning. He reports exertional dyspnea. He is able to keep up with activities of daily living. He can get tohis mailbox to collect the mail. He is okay to walk upstairs as long as he can hold onto the railing. He has ankle swelling which improves with diuretic therapy. He has noted some sinus issues. He has reflux symptoms. Appetite is good. Weight is stable. Bowels are occasionally constipated. Hedenies rectal bleeding or melena. No urinary symptoms or hematuria. No syncope or seizures. The patient reports that because of reflux symptoms he sleeps in a chair. He thinks he might snore in his sleep at night. He feels rested when he wakes up but quickly develops fatigue and daytime sleepiness. He denies fatigue or sleepiness when driving. He has not been involved in motor vehicle accident. Past medical history is positive for surgery for aortic valve. He has had bilateral knee surgery done and replacement of left hip. Personal history: He quit smoking about 45 years ago. He drinks alcohol on a social basis. Family history: Does not know much about his father who is . Mother age 31 of complications of TB. 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 Lives alone. No pets in the house. Past Medical History: Diagnosis Date ??? Abnormal [...] 10/23/2015 PVI/WACA No family history on file. Social History Tobacco Use ??? Smoking status: Former Smoker ??? Smokeless tobacco: Former User Types: Chew Substance Use Topics ??? Alcohol use: Yes Comment: 6 per week ??? Drug use: No Current Outpatient Medications on File Prior to Visit Medication Sig ??? albuterol sulfate HFA (PROAIR [...] or closed toe Dx I83.893 ??? enoxaparin 100 MG/ML Inject 0.6 mLs (60 mg total) into the skin every 12 (twelve) hours. Start Wednesday morning and discontinue after doses on . ??? enoxaparin 60 MG/0.6ML Solution Stop warfarin 4 days prior to cath. Start Lovenox injections Day prior to cath - 60 mg every 12 hours. Last dose 12 hours prior to cath. ??? fluticasone propionate 50 MCG/ACT nasal spray 2 sprays by Each Nare route daily. ??? Ditznhncyto-Psdmahqea-Qbyhzd 100-62.5-25 MCG/INH AEROSOL POWDER, BREATH ACTIVATED Inhale [...] 2 (two) times daily with meals. ??? mometasone-formoterol 200-5 MCG/ACT Aerosol Inhale into the lungs 2 (two) times daily. ??? nystatin cream Apply topically as needed. ??? pantoprazole EC 40 MG tablet Take 1 tablet (40 mg total) by mouth 2 (two) times daily. ??? potassium chloride CR 20 MEQ tablet Take 40 mEq by mouth daily. ??? pramipexole 0.125 MG tablet Take 0.125 mg by mouth 3 (three) times daily. ??? sertraline 100 MG tablet [...] times daily. ??? warfarin 1 MG tablet 1 mg. Take 2.5 tablets with 0.5 of 10 mg tablet to = 7.5 mg No current facility-administered medications on file prior to visit. No Known Allergies Review of Systems Constitutional: Negative for chills, diaphoresis and fever. HENT: Negative for ear discharge and ear pain. Eyes: Negative for blurred vision, double vision, photophobia, pain, discharge and redness. Respiratory: Positive for shortness of breath. Negative for hemoptysis and stridor. Cardiovascular: Negative for claudication. Gastrointestinal: Negative for abdominal pain, constipation, diarrhea, heartburn, nausea and vomiting. Genitourinary: Negative for dysuria and hematuria. Musculoskeletal: Negative for back pain, joint pain and neck pain. Skin: Negative for itching and rash. Neurological: Negative for dizziness, tremors, seizures and loss of consciousness. Endo/Heme/Allergies: Negative for polydipsia. Does not bruise/bleed easily. Psychiatric/Behavioral: Negative for hallucinations, substance abuse and suicidal ideas. Physical Exam Filed Vitals: 10/30/20 1450 BP: 136/72 Pulse: 78 Resp: 20 SpO2: 95% Weight: 93.1 kg (205 lb 3.2 oz) Height: 5' 7 (1.702 m) Physical Exam Vitals signs and nursing note reviewed. Constitutional: General: He is not in acute distress. Appearance: He is well-developed. HENT: Head: Normocephalic and atraumatic. Right Ear: External ear normal. Left Ear: External ear normal. Mouth/Throat: Pharynx: No oropharyngeal exudate. Eyes: General: No scleral icterus. Left eye: No discharge. Conjunctiva/sclera: Conjunctivae normal. Pupils: Pupils are equal, round, and reactive to light. Neck: Thyroid: No thyromegaly. Trachea: No tracheal deviation. Cardiovascular: Heart sounds: S1 normal and S2 normal. Pulmonary: Effort: Pulmonary effort is normal. Breath sounds: No stridor. Abdominal: General: Bowel sounds are normal. Palpations: Abdomen is soft. Musculoskeletal: Normal range of motion. Skin: General: Skin is warm and dry. Neurological: Mental Status: He is alert and oriented to person, place, and time. Psychiatric: Speech: Speech normal. Behavior: Behavior normal. He looks a little pale. No cyanosis, jaundice, clubbing, lymphadenopathy. Minimal swelling of the feet and ankles is noted. Clinically no deep vein thrombosis. His tongue appears of pale. Throat is clear. No Daniela. There is an overgrowth of soft tissue of the back of the throat. Mallampati score is 4. Neck circumference is 18 inches. Thyroid is soft. Moves on swallowing. No bruit across the thyroid. Neck veins cannot be made out. Both heart sounds are heard today. Pulmonary second sound is increased. There is a systolic murmur. No bruit across the carotids. Trachea central. He is not using accessory muscles at rest. Lungs sounded clear today. No wheezes no crackles. Abdomen is soft and non tender. Liver and spleen are not enlarged. No other masses are palpable. No results found. Orders Placed This Encounter ??? XR CHEST PA+LAT Standing Status: Future Standing Expiration Date: 10/30/2021 Order Specific Question: What Hospital Division or Clinic will the patient go to for their test Answer: [facility] Order Specific Question: What site in [facility] will the patient want their study/test? Answer: [facility] Order Specific Question: Reason for Exam Answer: pulmonary hypertension Order Specific Question: Release to patient Answer: System release ??? CBC, AUTO, NO DIFF Standing Status: Future Number of Occurrences: 1 Standing Expiration Date: 10/30/2021 Order Specific Question: Release to patient Answer: System release ??? RETICULOCYTE CT, AUTO Standing Status: Future Number of Occurrences: 1 Standing Expiration Date: 10/30/2021 Order Specific Question: Release to patient Answer: System release ??? SED RATE, ERYTHROCYTE (ESR) Standing Status: Future Number of Occurrences: 1 Standing Expiration Date: 10/30/2021 Order Specific Question: Release to patient Answer: System release ??? LDH, LACTATE DEHYDROGENASE Standing Status: Future Number of Occurrences: 1 Standing Expiration Date: 10/30/2021 Order Specific Question: Release to patient Answer: System release ??? PROTIME/INR, VENOUS Please send report ot Dr. Infante Standing Status: Future Number of Occurrences: 1 Standing Expiration Date: 11/30/2020 Order Specific Question: Release to patient Answer: System release Assessment Diagnoses and all orders for this visit: Anticoagulated - PROTIME/INR, VENOUS; Future Pulmonary hypertension (CMS/HCC) - XR CHEST PA+LAT; Future Anemia, chronic disease - CBC, AUTO, NO DIFF; Future - RETICULOCYTE CT, AUTO; Future - SED RATE, ERYTHROCYTE (ESR); Future - LDH, LACTATE DEHYDROGENASE; Future Discussion Laboratory data is reviewed. August 2020 hemoglobin is 11.5. Platelets are in normal range. Metabolic panel shows normal potassium. BUN 20 creatinine 1.38 is noted. Transesophageal echo from September 2020 is reviewed. Ejection fraction is 55%. He has mild concentric left ventricular hypertrophy. Left atrium is enlarged. Right atrium is also enlarged. There is noevidence of shunt. Pulmonary artery systolic pressure could not be quantified but it appeared that the pressure was elevated. Bioprosthetic aortic valve was noted. I had extensive discussions with the patient. We will obtain another chest x- ray. To further evaluate his pulmonary status I will schedule pulmonary function testing and 6-minute walk on room air. Anemia is a major determinant of the sensation of dyspnea. We obtained some more lab work today. Hemoglobin is 12.2. Reticulocyte count is 1.7%. The bone marrow is responding to the anemia. Sed rate is nonspecific at 47. LDH level is normal. The patient is anticoagulated and requested INR to be drawn and forwarded to his primary care physician. The patient said he had a previous sleep study. He had a CPAP machine which was removed because ofnoncompliance. We will have to get him requalified. I will start by scheduling a home sleep study for him. The most important determinant of pulmonary hypertension is the patient's oxygen status. Oxygen would be the most powerful vasodilator that could help to bring down pulmonary artery pressure. We haveto evaluate him for daytime hypoxia and nighttime hypoxia. We can review once we have the results of his test. Once again I thank Dr. Infante and Dr. Pandey for giving me this opportunity of seeing this very nice patient in evaluation for pulmonary and sleep disorder ENOCH BARNES MD documented in this encounter Plan of Treatment Upcoming Encounters Date Type Department Care Team (Late st Contact Info) Description 09/25/2024 2:00 PM BUSINESS INTEGRATION MANAGER Appointment [facility] [address] [place] [address] Zayra Powell, CONTENT PUBLISHER [address] [place] [address] 10/16/2024 3:30 PM BUSINESS INTEGRATION MANAGER Office Visit [facility] [place] [address] Brit Gonzáles MD [address] [place] [address] documented as of this encounter Results * Six Minute Walk (68053) (03/26/2021 11:00 AM CDT) Narrative [facility] - 03/26/2021 11:00 AM CDT Enoch Barnes MD ? 03/28/2021 ??8:41 AM Mr. [...] suboptimal cardiopulmonary conditioning of the patient. us Enoch Barnes MD PFT ORDERABLES Final Res ult [facility] [address] [place] [address], * Complete PFT (pre/post [place], Lung Vol, Diff Capacity) (02479, 32840, 38022, 17453) (03/26/2021 11:00 AM CDT) Narrative [facility] - 03/26/2021 11:00 AM CDT Enoch Barnes MD ? 03/28/2021 ??8:45 AM Mr. [...] ??Calculated ERV is 700 cc. Diffusing capacity: Coamo of phase 3 indicates measurement of diffusing [...] evaluation for daytime and nighttime hypoxia. us Enoch Barnes MD PFT ORDERABLES Final Res ult [facility] [address] [place] [address], * XR CHEST PA+LAT (02/18/2021 12:27 PM [...] By: Pradeep Boyer MD, 02/19/2021 7:14 AM us Enoch Barnes MD GENERAL IMAGING Final Res ult * (ABNORMAL) PROTIME/INR, VENOUS (10/30/2020 3:45 PM BUSINESS INTEGRATION MANAGER) PROTIME 41.7(H) 9.4 - 12.5 SEC 10/30/2020 4:02 [address] BUSINESS IN[address]GRATION MA[address]GER [facility] INR 3.7(H) 0.9 - 1.1 10/30/2020 4:02 PM BUSINESS INTEGRATION MANAGER [facility] 10/30/2020 3:45 PM BUSINESS INTEGRATION MANAGER us Enoch Barnes MD LABORATORY Final Res ult [facility] [address] [place] [address], * LDH, LACTATE DEHYDROGENASE (10/30/2020 3:45 PM BUSINESS INTEGRATION MANAGER) LDH 176 85 - 227 UNITS/L 10/30/2020 4:45 PM BUSINESS INTEGRATION MANAGER [facility] 10/30/2020 3:45 PM BUSINESS INTEGRATION MANAGER us Enoch Barnes MD LABORATORY Final Res ult Performing Organization Address City/[facility]/ZIP Co de Phone Number [facility] [address] [place] [phone], * (ABNORMAL) SED RATE, ERYTHROCYTE (ESR) (10/30/2020 3:45 PM BUSINESS INTEGRATION MANAGER) ESR 47(H) 0 - 20 MM/HR 10/30/2020 4:40 PM BUSINESS INTEGRATION MANAGER [facility] Comment:NOTE: ANEMIA, IF PRE SENT, MAY CAUSE AN ELEVATED SEDIMENTATION RATE. 10/30/2020 3:45 PM BUSINESS INTEGRATION MANAGER us Enoch Barnes MD LABORATORY Final Res ult Performing Organization Address [facility] Co de Phone Number [facility] [address] [place] [address], * RETICULOCYTE CT, AUTO (10/30/2020 3:45 PM BUSINESS INTEGRATION MANAGER) RETICULOCYTE COUNT 1.7 0.7 - 2.3 % 10/30/2020 4:03 [address] BUSINESS INTEGRATION MANAGER [facility] ABSOLUTE RETICULOCYTE 0.07 0.03 - 0.11 x10'6/uL 10/30/2020 4:03 PM BUSINESS INTEGRATION MANAGER [facility] IMMATURE RETIC FRACTION 12.3 2.3 - 13.4 % 10/30/2020 4:03 PM BUSINESS INTEGRATION MANAGER [facility] RETIC HGB 33.3 28.0 - 35.0 PG 10/30/2020 4:03 PM BUSINESS INTEGRATION MANAGER [facility] 10/30/2020 3:45 PM BUSINESS INTEGRATION MANAGER us Enoch Barnes MD LABORATORY Final Res ult Performing Organization Address City/[facility]/ZIP Co de Phone Number [facility] [address] [place] [phone], * (ABNORMAL) CBC, AUTO, NO DIFF (10/30/2020 3:45 PM BUSINESS INTEGRATION MANAGER) WBC 9.1 4.5 - 10.8 x10'3/uL 10/30/2020 4:03 PM BUSINESS INTEGRATION MANAGER [facility] RBC 4.46(L) 4.50 - 6.10 x10'6/uL 10/30/2020 4:03 PM BUSINESS INTEGRATION MANAGER [facility] HGB 12.2(L) 13.0 - 18.0 G/DL 10/30/2020 4:03 PM BUSINESS INTEGRATION MANAGER [facility] HCT 39.4 37.0 - 52.0 % 10/30/2020 4:03 PM BUSINESS INTEGRATION MANAGER [facility] MCV 88.3 78.0 - 100.0 FL 10/30/2020 4:03 PM BUSINESS INTEGRATION MANAGER [facility] MCH 27.4 27.0 - 31.0 PG 10/30/2020 4:03 PM [facility] MCHC 31.0(L) 33.0 - 36.0 G/DL 10/30/2020 4:03 PM [facility] RDW 14.2 11.5 - 14.5 % 10/30/2020 4:03 PM [facility] PLT 236 150 - 350 x10'3/uL 10/30/2020 4:03 PM [facility] MPV 10.0 7.4 - 10.4 FL 10/30/2020 4:03 PM [facility] 10/30/2020 3:45 PM BUSINESS INTEGRATION MANAGER us Enoch Barnes MD LABORATORY Final Res ult [facility] [address] [place] [address], documented in this encounter Visit Diagnoses Diagnosis Shortness of breath- Primary Pulmonary hypertension (CMS/HCC HHS/HCC) Other chronic pulmonary heart diseases Anemia, chronic disease Anemia of other chronic disease Anticoagulated Encounter for long-term (current) use of anticoagulants Obstructive sleep apnea (adult) (pediatric) Pulmonary hypertension (CMS/HCC HHS/HCC) Other chronic pulmonary heart diseases Shortness of breath documented in this encounter Care Teams Freezer Machine Operator Relationship Specialty Start Date End Date Megan Infante MD [address] [place] [phone] PCP - General FAMILY PRACTICE 04/06/16 Piyush Pandey MD [place] [employer] Architect CARDIOVASCULAR DISEASE 04/06/16 12/28/23 Sharmila Davis APRN, GLOVE BRUSHER-C [address] [facility] [address] [place] [phone] NURSE PRACTITIONER 01/04/17 04/03/24 Linda Block MD [address] [address] [place] [employer] Architect CLINICAL CARDIAC ELECTROPHYSIOLOGY 02/08/17 04/12/23 Jeff Grace MD [address] [address] Consulting Physician INTERNAL MEDICINE 02/20/19 3 Zaki Ortiz MD [address] [phone] Consulting Physician PULMONARY DISEASE 07/12/19 documented as of this encounter
--- OUTSIDE RECORDS SUMMARY | 2024-09-03 19:13 | XMS_ITS | Encounter Summary ---
Author Organization [facility] Address [address] [place] [address]. [place] [address] [place] [address] Care Team Providers Care Electronic Engraver Name Role Phone Piyush Pandey MD Unavailable Unavailabl e Megan Infante MD Primary Care Provider [phone] Sharmila Davis APRN, NP-C Unavailable [phone] Linda Block MD Unavailable [phone] Jeff Grace MD Unavailable Zaki Ortiz MD Unavailable [phone] Reason for Visit * Reason Comments Hospital H&P (SCAN) Encounter Details Date Type Department Care Team (Late st Contact Info) Description 11/28/2020 Scan [facility] Information Services [facility] [place] [address] Scanned, Documents Hospital H&P (SCAN) Social History Tobacco Use Types Packs/Day [...] have Coronavirus / COVID-19? No / Unsure 02/11/2021 8:08 AM CDT documented as of this encounter Plan of Treatment Upcoming Encounters Date Type Department Care Team (Late st Contact Info) Description 09/25/2024 2:00 PM [employer] Appointment [facility] [address] [place] [address] Zayra Powell, MILK BOTTLER [address] [place] [address] 10/16/2024 3:30 PM [employer] Office Visit [facility] [address] [place] [address] Brit Gonzáles MD [address] [place], [place] [phone] documented as of this encounter Visit Diagnoses Not on filedocumented in this encounter Additional Health Concerns Infection Onset Date Last Indicated Resolved Time COVID-19 Rule Out 02/08/2021 02/08/2021 02/08/2021 9:06 PM CDT documented as of this encounter Care Teams Electronic Engraver Relationship Specialty Start Date End Date Megan Infante MD [address] [place] [address] PCP - General FAMILY PRACTICE 04/06/16 Piyush Pandey MD [place] [employer] Tax Advisor CARDIOVASCULAR DISEASE 04/06/16 12/28/23 Sharmila Davis APRN, DATA PROCESSING CONTROL CLERK-C [address] [facility] [address] [place] [phone] NURSE PRACTITIONER 01/04/17 04/03/24 Linda Block MD [address] [facility] [address] [place] [phone] [place] [employer] Tax Advisor CLINICAL CARDIAC ELECTROPHYSIOLOGY 02/08/17 04/12/23 Jeff Grace MD [address] [place] [address] Consulting Physician INTERNAL MEDICINE 02/20/19 3 Zaki Ortiz MD [address] [place] [address] Consulting Physician PULMONARY DISEASE 07/12/19 documented as of this encounter
--- OUTSIDE RECORDS SUMMARY | 2024-09-03 19:13 | XMS_ITS | Encounter Summary ---
Author Organization [facility] Address [address] [place] [address]. [place] [address] [place] [address] Care Team Providers Care Billing Department Supervisor Name Role Phone Piyush Pandey MD Unavailable Unavailabl e Megan Infante MD Primary Care Provider [phone] Sharmila Davis APRN TECHNOLOGIST INFECTIOUS DISEASE-C Unavailable [phone] Linda Block MD Unavailable [phone] Jeff Grace MD Unavailable Zaki Ortiz MD Unavailable [phone] Encounter Details Date Type Department Care Team (Latest Contact Info) Description 03/26/2021 Travel Social History Tobacco Use Types Packs/Day [...] st Contact Info) Description 09/25/2024 2:00 PM PEANUT CLEANER Appointment [facility] [address] [place] [address] Zayra Powell, JUNIOR MANUFACTURING ENGINEER [address] [place], [place] [phone] 10/16/2024 3:30 PM PEANUT CLEANER Office Visit [facility] [address] [place] [address] Brit Gonzáles MD [address] [place], [place] [phone] documented as of this encounter Visit Diagnoses Not on filedocumented in this encounter Care Teams Billing Department Supervisor Relationship Specialty Start Date End Date Megan Infante MD [address] [place] [address] PCP - General FAMILY PRACTICE 04/06/16 Piyush Pandey MD [place] Funding Analyst CARDIOVASCULAR DISEASE 04/06/16 12/28/23 Sharmila Davis APRN, TECHNOLOGIST INFECTIOUS DISEASE-C [address] [facility] [address] [place] [phone] NURSE PRACTITIONER 01/04/17 04/03/24 Linda Block MD [address] [facility] [address] [place] [phone] [place] Funding Analyst CLINICAL CARDIAC ELECTROPHYSIOLOGY 02/08/17 04/12/23 Jeff Grace MD [address] [facility] [address] [place] [phone] Consulting Physician INTERNAL MEDICINE 02/20/19 3 Zaki Ortiz MD [address] [place] [phone] Consulting Physician PULMONARY DISEASE 07/12/19 documented as of this encounter
--- OUTSIDE RECORDS SUMMARY | 2024-09-03 19:13 | XMS_ITS | Encounter Summary ---
Author Organization [facility] Address [address] [place] [address]. [place] [address] [place] [address] Care Team Providers Care Respiratory Support Technician Name Role Phone Piyush Pandey MD Unavailable Unavailabl e Megan Infante MD Primary Care Provider [phone] Sharmila Davis APRN POLITICAL CONSULTANT-C Unavailable Linda Block MD Unavailable [phone] Jeff Grace MD Unavailable Zaki Ortiz MD Unavailable [phone] Encounter Details Date Type Department Care Team (Late st Contact Info) Description 02/08/2021 6:52 AM CDT - 02/08/2021 11:59 PM CDT Hospital Encounter [facility] [address] [place] [address] Kilo Navarro MD [address] [place] [address] Discharge Disposition: Home or Self [...] Dx I83.893 1 Container 6 04/11/2019 2 fluticasone propionate 50 MCG/ACT nasal spray [...] st Contact Info) Description 09/25/2024 2:00 PM ARMORED CAR GUARD Appointment [facility] [address] [place] [address] Zayra Powell, BLOCKER METAL BASE [address] [place] [address] 10/16/2024 3:30 PM ARMORED CAR GUARD Office Visit [facility] [address] [place] [phone] Brit Gonzáles MD [address] [place] [address] documented as of this encounter Procedures Procedure Name Priority Date/Time Associated Diagnosis Comments CORONAVIRUS (COVID 19) Routine 02/08/2021 6:57 AM CDT Pre-operative laboratory examination documented in this encounter Results * PRE-SURGICAL/PRE-PROCEDURE CORONAVIRUS (COVID 19) (02/08/2021 6:57 AM CDT) SPEC DESCRIPTION NASOPHARYNGEAL SWAB 02/08/2021 6:57 AM CDT [facility] CORONAVIRUS SARS COV 2 PCR (RESP) NEGATIVE NEGATIVE 02/08/2021 9:06 PM CDT [facility] Comment: THE SARS-CoV-2 TEST HAS BEEN AUTHORIZED BY THE FDA UNDER AN EUA FOR USE BY AUTHORIZED LABORATORIES. PERFORMED BY NUCLEIC ACID AMPLIFICATION PCR FIRST TEST UNKNOWN 02/08/2021 6:57 AM CDT [facility] EMPLOYED IN HEALTHCARE NO 02/08/2021 6:57 AM CDT [facility] SYMPTOMATIC DEFINED BY CDC UNKNOWN 02/08/2021 6:57 AM CDT [facility] HOSPITALIZATION STATUS NO 02/08/2021 6:57 AM CDT [facility] PATIENT IN ICU NO 02/08/2021 6:57 AM CDT [facility] RESIDENT OF [facility] NO 02/08/2021 6:57 AM CDT [facility] NASOPHARYNGEAL SWAB / Unknown 02/08/2021 6:57 AM CDT Kilo Navarro MD MICROBIOLOGY - GENERAL MICHELLE NASCIMENTO Final Result [facility] [address] [place] [address], [facility] [address] [place] [address], documented in this encounter Visit Diagnoses Diagnosis Pre-operative laboratory examination Pre-procedural laboratory examination documented in this encounter Additional Health Concerns Infection Onset Date Last Indicated Resolved Time COVID-19 Rule Out 02/08/2021 02/08/2021 02/08/2021 9:06 PM CDT documented as of this encounter Care Teams Respiratory Support Technician Relationship Specialty [place] [address] [place] [phone] PCP - General FAMILY PRACTICE 04/06/16 Piyush Pandey MD [place] Auxiliary Equipment Tender CARDIOVASCULAR DISEASE 04/06/16 12/28/23 Sharmila Davis, DANNY, POLITICAL CONSULTANT-C [address] [id number] [place] [address] NURSE PRACTITIONER 01/04/17 04/03/24 Linda Block MD [address] [facility] [address] [place] [address] [place] [employer]uxiliary Equipment Tender CLINICAL CARDIAC ELECTROPHYSIOLOGY 02/08/17 04/12/23 Jeff Grace MD [address] [facility] [address] [place] [address] Consulting Physician INTERNAL MEDICINE 02/20/19 3 Zaki Ortiz MD [address] [place] [phone] Consulting Physician PULMONARY DISEASE 07/12/19 documented as of this encounter
--- OUTSIDE RECORDS SUMMARY | 2024-09-03 19:13 | XMS_ITS | Encounter Summary ---
Author Organization [facility] Address [address] [place] [address]. [place] [address] [place] [address] Care Team Providers Care Communication Spec Name Role Phone Piyush Pandey MD Unavailable Unavailabl e Megan Infante MD Primary Care Provider [phone] Sharmila Davis APRN, AIRPLANE TESTER-C Unavailable Linda Block MD Unavailable [phone] Jeff Grace MD Unavailable Zaki Ortiz MD Unavailable [phone] Reason for Visit * Reason Comments Follow Up Encounter Details Date Type Department Care Team (Late st Contact Info) Description 04/02/2021 10:40 AM CDT Office Visit [facility] [address] [place] [address] Enoch Barnes MD [address] [place] [address] Follow Up Social History Tobacco Use Types [...] Sign Reading Time Taken Comments Blood Pressure 103/75 04/02/2021 10:43 AM CDT Pulse 80 04/02/2021 10:43 AM CDT Temperature - - Respiratory Rate 18 04/02/2021 10:43 AM CDT Oxygen Saturation 93% 04/02/2021 10:43 AM CDT Inhaled Oxygen Concentration - - Weight 97.6 kg (215 lb 3.2 oz) 04/02/2021 10:43 AM CDT Height 170.2 cm (5' 7 ) 04/02/2021 10:43 AM CDT Body Mass Index 33.71 04/02/2021 10:43 AM CDT documented in this encounter Progress Notes * Enoch Barnes MD - 04/02/2021 10:40 AM CDT Reason for visit Follow Up Chief complaint. Asthma. HPI: Mendez Lay 65-year-old male with a PMH included below is a regular patient of Dr. Infante and comes in today for follow-up. The patient is here today to assess his clinical status and decide on ongoing treatment plan. Start montelukast for asthma. Schedule echo. Review with results of echo and sleep study. REVIEW OF MEDICAL HISTORY: Current Outpatient Medications Medication Sig ??? albuterol sulfate HFA (PROAIR [...] open or closed toe Dx I83.893 ??? Avwcsfniint-Qhvewprnt-Iifyoc 100-62.5-25 MCG/INH AEROSOL POWDER, BREATH ACTIVATED Inhale [...] 1 mg by mouth daily. 6.5mg daily ??? enoxaparin 40 MG/0.4ML Solution Past Medical History: Diagnosis Date ??? Abnormal [...] Navarro MD at [facility] OR ??? HIP ARTHROPLASTY Left [...] per week ??? Drug use: No No Known Allergies Review of Systems Constitutional: Negative for chills, diaphoresis and fever. HENT: Negative for ear discharge and ear pain. Eyes: Negative for blurred vision, double vision, photophobia, pain, discharge and redness. Respiratory: Negative for hemoptysis and stridor. Cardiovascular: Negative [...] and suicidal ideas. Physical Exam Filed Vitals: 04/02/21 1043 BP: 103/75 Pulse: 80 Resp: 18 SpO2: 93% Weight: 97.6 kg (215 lb 3.2 oz) Height: 5' 7 (1.702 m) Physical Exam Vitals and nursing note [...] soft. Musculoskeletal: General: Normal range of motion. Skin: General: Skin [...] sounded clear today. No wheezes no crackles. LABS: CBC: WBC Date Value Ref Range Status 10/30/2020 9.1 4.5 - 10.8 x10'3/uL Final 09/07/2020 9.0 4.5 - 10.8 x10'3/uL Final 07/03/2020 9.9 4.5 - 10.8 x10'3/uL Final RBC Date Value Ref Range Status 10/30/2020 4.46 (L) 4.50 - 6.10 x10'6/uL Final 09/07/2020 4.15 (L) 4.50 - 6.10 x10'6/uL Final 07/03/2020 4.37 (L) 4.50 - 6.10 x10'6/uL Final HGB Date Value Ref Range Status 10/30/2020 12.2 (L) 13.0 - 18.0 G/DL Final 09/07/2020 11.5 (L) 13.0 - 18.0 G/DL Final 07/03/2020 12.2 (L) 13.0 - 18.0 G/DL Final HCT Date Value Ref Range Status 10/30/2020 39.4 37.0 - 52.0 % Final 09/07/2020 36.9 (L) 37.0 - 52.0 % Final 07/03/2020 38.7 37.0 - 52.0 % Final PLT Date Value Ref Range Status 10/30/2020 236 150 - 350 x10'3/uL Final 09/07/2020 188 150 - 350 x10'3/uL Final 07/03/2020 243 150 - 350 x10'3/uL Final Hemoglobin is 12.2. Platelets are normal. CMP: POTASSIUM Date Value Ref Range Status 02/18/2021 4.7 3.5 - 5.1 MMOL/L Final 09/07/2020 4.8 3.5 - 5.1 MMOL/L Final 07/03/2020 4.4 3.5 - 5.1 MMOL/L Final BUN Date Value Ref Range Status 02/18/2021 20 6 - 24 MG/DL Final 09/07/2020 20 6 - 24 MG/DL Final 07/03/2020 30 (H) 6 - 24 MG/DL Final CREATININE S/P/B Date Value Ref Range Status 02/18/2021 1.37 (H) 0.70 - 1.30 MG/DL Final 09/07/2020 1.38 (H) 0.70 - 1.30 MG/DL Final 07/03/2020 1.92 (H) 0.70 - 1.30 MG/DL Final Creatinine 1.37 is noted. Potassium and BUN are normal. TSH: TSH Date Value Ref Range Status 09/28/2013 2.10 0.4 - 5.5 micro IU/ml Final IMAGING: Radiology Results (Last 30 days) None Laboratory data is reviewed. August 2020 hemoglobin is 11.5. Platelets are in normal range. Metabolic panel shows normal potassium. BUN 20 creatinine 1.38 is noted. ?? Transesophageal echo from September 2020 is reviewed. Ejection fraction is 55%. He has mild concentric left ventricular hypertrophy. Left atrium is enlarged. Right atrium is also enlarged. There is noevidence of shunt. Pulmonary artery systolic pressure could not be quantified but it appeared that the pressure was elevated. Bioprosthetic aortic valve was noted. ?? I had extensive discussions with the patient. We will obtain another chest x- ray. To further evaluate his pulmonary status I will schedule pulmonary function testing and 6-minute walk on room air. ?? Anemia is a major determinant of the sensation of dyspnea. We obtained some more lab work today. Hemoglobin is 12.2. Reticulocyte count is 1.7%. The bone marrow is responding to the anemia. Sed rate is nonspecific at 47. LDH level is normal. The patient is anticoagulated and requested INR to be drawn and forwarded to his primary care physician. ?? The patient said he had a previous sleep study. He had a CPAP machine which was removed because of noncompliance. We will have to get him requalified. Pulmonary function test from March 2021 is reviewed. He has airway obstruction with bronchodilatorresponse diagnostic of asthma. There is a low diffusing capacity. This is probably related to underlying anemia. 6-minute walk test from March 2021 is reviewed. He does not desaturate and does not require supplemental oxygen. Tachycardia during activity is noted. Assessment/Plan Asthma has been assessed. Will contribute to dyspnea. I will start him on asthma medication. Shortness of breath has been assessed. Probably related to underlying pulmonary hypertension. Daytime hypoxia has been ruled out. He has a sleep study scheduled to evaluate for nighttime hypoxia andassociated sleep apnea syndrome. Problem List Items Addressed This Visit None I will schedule echo with bubble study to make sure we are not dealing with shunt contributing to pulmonary hypertension. Has taken Covid shots We can review with the results of his test. Once again I thank Dr. Infante for giving me this opportunity of seeing this very nice patient in follow-up for pulmonary and sleep disorder ENOCH BARNES MD, 04/02/2021, 11:04 AM documented in this encounter Plan of Treatment Upcoming Encounters Date Type Department Care Team (Late st Contact Info) Description 09/25/2024 2:00 PM METAL BONDING CRIB ATTENDANT Appointment [facility] [address] [place] [address] Zayra Powell, MACHINING DEPARTMENT SUPERVISOR [address] [place] [address] 10/16/2024 3:30 PM METAL BONDING CRIB ATTENDANT Office Visit [facility] [address] [place] [address] Brit Gonzáles MD [address] [place] [address] documented as of this encounter Visit Diagnoses Diagnosis Pulmonary hypertension (CMS/HCC HHS/HCC)- Primary Other chronic pulmonary heart diseases Moderate persistent asthma without complication (HHS/HCC) Unspecified asthma Mild persistent asthma without complication (HHS/HCC) Unspecified asthma documented in this encounter Care Teams Communication Spec Relationship Specialty Start Date End Date Megan Infante MD [address] [place] [address] PCP - General FAMILY PRACTICE 04/06/16 Piyush Pandey MD [employer] Manager Of Operations CARDIOVASCULAR DISEASE 04/06/16 12/28/23 Sharmila Davis, DANNY, AIRPLANE TESTER-C [address] [facility] [address] [place] [address] NURSE PRACTITIONER 01/04/17 04/03/24 Linda Block MD [address] [facility] [address] [address] [employer] Manager Of Operations CLINICAL CARDIAC ELECTROPHYSIOLOGY 02/08/17 04/12/23 Jeff Grace MD [address] [facility] [address] [phone] Consulting Physician INTERNAL MEDICINE 02/20/19 3 Zaki Ortiz MD [address] [facility] [address] [phone] Consulting Physician PULMONARY DISEASE 07/12/19 documented as of this encounter
--- OUTSIDE RECORDS SUMMARY | 2024-09-03 19:13 | XMS_ITS | Encounter Summary ---
Author Organization [facility] Address [facility] [place] [address] [place] [address] Care Team Providers Care Interactive Developer Name Role Phone Piyush Pandey MD Unavailable Unavailabl e Megan Infante MD Primary Care Provider [phone] Sharmila Davis APRN, NP-C Unavailable Linda Block MD Unavailable [phone] Jeff Grace MD Unavailable Zaki Ortiz MD Unavailable [phone] Reason for Visit * Auth/Cert Specialty Diagnoses / Procedures Referred By Yung sequeira Referred To Contact Diagnoses DYSPHAGIA, HISTORY OF POLYPS Procedures UPPER GI ENDOSCOPY,BIOPSY COLONOSCOPY,DIAGNOSTIC EGD COLONOSCOPY DIAGNOSTIC WITH/WITHOUT SPECIMEN BRUSH/WASH Referral ID Status Reason Start Date Expiration Date Visits Re quested Visits Authorized [id number] 1 1 Encounter Details Date Type Department Care Team (Late st Contact Info) Description 02/11/2021 8:04 AM CDT - 02/11/2021 8:19 AM T [facility] En[facility] [address] [place] [address] Kilo Navarro MD [address] [place] [address] Discharge Disposition: Home or Self Care [...] - - Weight 99.8 kg (220 lb) 02/04/2021 1:38 PM CDT Height 170.2 cm (5' 7 ) 02/04/2021 1:38 PM CDT Body Mass Index 34.46 02/04/2021 1:38 PM CDT documented in this encounter Medications at Time [...] directed 2 documented as of this encounter Nursing Notes * Iza Jordan RN - 02/11/2021 8:11 AM CDT Pt stated ate a sandwich at noon yesterday, did not follow clear liquids all day. Dr Navarro aware and case cancelled. documented in this encounter Plan of Treatment Upcoming Encounters Date Type Department Care Team (Late st Contact Info) Description 09/25/2024 2:00 PM THROUGH OPERATOR Appointment [facility] [address] [place] [address] Zayra Powell, CHEESEMAKING LABORER [address] [place] [address] 10/16/2024 3:30 PM THROUGH OPERATOR Office Visit [facility] [address] [place] [phone] Brit Gonzáles MD [address] [place] [address] documented as of this encounter Visit Diagnoses Not on filedocumented in this encounter Active and Recently Administered Medications Care Teams Interactive Developer Relationship Specialty Start Date End Date Megan Infante MD [address] [place] [address] PCP - General FAMILY PRACTICE 04/06/16 Piyush Pandey MD [place] Cruise Director CARDIOVASCULAR DISEASE 04/06/16 12/28/23 Sharmila Davis APRN, WAGON WASHER-C [address] [facility] [address] [place] [address] NURSE PRACTITIONER 01/04/17 04/03/24 Linda Block MD [address] [facility] [address] [place] [address] [place] Cruise Director CLINICAL CARDIAC ELECTROPHYSIOLOGY 02/08/17 04/12/23 Jeff Grace MD [address] [facility] [address] [address] Consulting Physician INTERNAL MEDICINE 02/20/19 3 Zaki Ortiz MD [address] [facility] [address] [place] [address] Consulting Physician PULMONARY DISEASE 07/12/19 documented as of this encounter
--- OUTSIDE RECORDS SUMMARY | 2024-09-03 19:13 | XMS_ITS | Encounter Summary ---
Author Organization [facility] Address [address] [place] [address]. [place] [address] [place] [address] Care Team Providers Care Bark Tanner Name Role Phone Piyush Pandey MD Unavailable Unavailabl e Megan Infante MD Primary Care Provider [phone] Sharmila Davis APRN, PROFESSIONAL NURSE-C Unavailable Linda Block MD Unavailable [phone] Jeff Graec MD Unavailable Zaki Ortiz MD Unavailable [phone] Encounter Details Date Type Department Care Team (Late st Contact Info) Description 10/15/2020 Orders Only [facility] [address] [place] [phone] Abstract, Doc [facility] Social History Tobacco Use Types Packs/Day Years [...] COVID-19? No / Unsure 10/10/2020 6:37 AM NUCLEAR UNIT OPERATOR documented as of this encounter Plan of Treatment Upcoming Encounters Date Type Department Care Team (Late st Contact Info) Description 09/25/2024 2:00 PM NUCLEAR UNIT OPERATOR Appointment [facility] [address] [place] [address] Zayra Powell, CONVICT GUARD [address] [place], [place] [phone] 10/16/2024 3:30 PM NUCLEAR UNIT OPERATOR Office Visit [facility] [address] [place] [address] Brit Gonzáles MD [address] [place], [place] [phone] documented as of this encounter Procedures Procedure Name Priority Date/Time Associated Diagnosis Comments CT HEAD WO CON Routine 07/03/2020 documented in this encounter Results * CT HEAD WO CON (07/03/2020) Anatomical Region Laterality Modality Head Computed Tomogra phy us Doc [facility] Abstract CT Final Result documented in this encounter Visit Diagnoses Not on filedocumented in this encounter Care Teams Bark Tanner Relationship Specialty Start Date End Date Megan Infante MD [address] [facility] [place] [address] PCP - General FAMILY PRACTICE 04/06/16 Piyush Pandey MD [place] Press Set Up CARDIOVASCULAR DISEASE 04/06/16 12/28/23 Sharmila Davis APRN, PROFESSIONAL NURSE-C [address] [place] [phone] NURSE PRACTITIONER 01/04/17 04/03/24 Linda Block MD [address] [place] [phone] [place] Press Set Up CLINICAL CARDIAC ELECTROPHYSIOLOGY 02/08/17 04/12/23 Jeff Grace MD [address] [place] [address] Consulting Physician INTERNAL MEDICINE 02/20/19 3 Zaki Ortiz MD [address] [place] [address] Consulting Physician PULMONARY DISEASE 07/12/19 documented as of this encounter
--- OUTSIDE RECORDS SUMMARY | 2024-09-03 19:13 | XMS_ITS | Encounter Summary ---
Author Organization [facility] Address [address] [place] [address]. [place] [address] [place] [address] Care Team Providers Care Linter Drier Operator Name Role Phone Piyush Pandey MD Unavailable Unavailabl e Megan Infante MD Primary Care Provider [phone] Sharmila Davis APRN HEAT TREATER HEAD-C Unavailable Linda Block MD Unavailable [phone] Jeff Grace MD Unavailable Zaki Ortiz MD Unavailable [phone] Reason for Visit * Reason Onset Date Comments Record Request 04/17/2021 Encounter Details Date Type Department Care Team (Late st Contact Info) Description 04/17/2021 Telephone [facility] Multispecialty [address] [address] Damaso Barnes MD [address] [place] [address] Record Request Social History Tobacco Use Types [...] as of this encounter Progress Notes * Penny Almeida MA - 04/17/2021 8:48 AM CDT Requested A1C lab result from [facility] documented in this encounter Plan of Treatment Upcoming Encounters Date Type Department Care Team (Late st Contact Info) Description 09/25/2024 2:00 PM RECEPTIONIST NURSE Appointment [facility] [address] [place] [address] Zayra Powell, VOCATIONAL REHABILITATION TECHNICIAN [address] [place] [address] 10/16/2024 3:30 PM RECEPTIONIST NURSE Office Visit [facility] [address] [place] [address] Brit Gonzáles MD [address] [place] [address] documented as of this encounter Visit Diagnoses Not on filedocumented in this encounter Care Teams Linter Drier Operator Relationship Specialty Start Date End Date Megan Infante MD [address] [place] [address] PCP - General FAMILY PRACTICE 04/06/16 Piyush Pandey MD [employer] Rental Clerk CARDIOVASCULAR DISEASE 04/06/16 12/28/23 Sharmila Davis, DAYCARE ASSISTANT, HEAT TREATER HEAD-C [address] [place] [address] [address] [place] [phone] NURSE PRACTITIONER 01/04/17 04/03/24 Linda Block MD [address] [place] [address] [employer] Rental Clerk CLINICAL CARDIAC ELECTROPHYSIOLOGY 02/08/17 04/12/23 Jeff Grace MD [address] [facility] [address] [place] [address] Consulting Physician INTERNAL MEDICINE 02/20/19 3 Zaki Ortiz MD [address] [facility] [address] [place] [address] Consulting Physician PULMONARY DISEASE 07/12/19 documented as of this encounter
--- OUTSIDE RECORDS SUMMARY | 2024-09-03 19:13 | XMS_ITS | Encounter Summary ---
Author Organization [facility] Address [facility] [facility] [place] [address] [place] [address] Care Team Providers Care Bale Stacker Name Role Phone Piyush Pandey MD Unavailable Unavailabl e Megan Infante MD Primary Care Provider [phone] Sharmila Davis APRN INFORMATICA MDM DEVELOPER-C Unavailable [phone] Linda Block MD Unavailable [phone] Jeff Grace MD Unavailable Zaki Ortiz MD Unavailable [phone] Reason for Visit * Imaging (Routine) - Closed Specialty Diagnoses / Procedures Referred By Yung sequeira Referred To Contact RADIOLOGY Diagnoses Pulmonary hypertension ([facility]/HCC [facility]/HCC) Procedures USE ECHOCARDIOGRAM W CON USE ECHOCARDIOGRAM Damaso Barnes MD [address] [place] [address] Phone: tel: fax: Referral ID Status Reason Start Date Expiration Date Visits Re quested Visits Authorized [id number] Closed 04/06/2021 05/07/2022 1 1 Encounter Details Date Type Department Care Team (Late st Contact Info) Description 04/18/2021 1:11 PM CDT - 04/18/2021 11:59 PM CDT Hospital Encounter [facility] [address] [place] [address] Damaso Barnes MD [address] [place] [address] Discharge Disposition: Home or Self [...] st Contact Info) Description 09/25/2024 2:00 PM [address]IST SUS[address]oint[address] [facility] [address] [place] [address] Zayra Powell, EDUCATIONAL INSTITUTION CURATOR [address] [facility] [place] [address] 10/16/2024 3:30 PM ARTIST SUSPECT Office Visit [facility] [address] [place] [address] Brit Gonzáles MD [address] [place] [address] documented as of this encounter Procedures Procedure Name Priority Date/Time Associated Diagnosis Comments USE ECHOCARDIOGRAM W CON Routine 021 2:14 PM CDT Pulmonary hypertension ([facility]/HCC HHS/HCC) documented in this encounter Results * USE ECHOCARDIOGRAM W CON (04/18/2021 2:14 PM CDT) Anatomical Region Laterality Modality NA Ultrasound us Damaso Barnes MD ECHO Final Res ult documented in this encounter Visit Diagnoses Diagnosis Pulmonary hypertension (CMS/HCC HHS/HCC) Other chronic pulmonary heart diseases documented in this encounter Administered Medications Inactive Administered Medications - up to 3 most recent administrations Medication Order MAR Action Action Date Dose Rate Site perflutren lipid microsphere (DEFINITY) injection 2 mL 2 mL, Intravenous, IMG once as needed, Contrast, 1 dose, Starting on Wed04/18/21 at 1414, Until 04/18/21 at 1414, Administer over 30-60 seconds. Follow with 10 mL saline flush. Given 04/18/2021 2:14 PM CDT 2 mLs Righ t Arm documented in this encounter Care Teams Bale Stacker Relationship Specialty Start Date End Date Megan Infante MD [address] [facility] [place] [address] PCP - General FAMILY PRACTICE 04/06/16 Piyush Pandey MD [place] Resident Care Assistant CARDIOVASCULAR DISEASE 04/06/16 12/28/23 Sharmila Davis, EVENTS INTERN, INFORMATICA MDM DEVELOPER-C [address] [facility] [address] [phone] NURSE PRACTITIONER 01/04/17 04/03/24 Linda Block MD [address] [phone] [place] Resident Care Assistant CLINICAL CARDIAC ELECTROPHYSIOLOGY 02/08/17 04/12/23 Jeff Grace MD [address] [address] Consulting Physician INTERNAL MEDICINE 02/20/19 3 Zaki Ortiz MD [address] [address] Consulting Physician PULMONARY DISEASE 07/12/19 documented as of this encounter
--- OUTSIDE RECORDS SUMMARY | 2024-09-03 19:13 | XMS_ITS | Encounter Summary ---
Author Organization [facility] Address [address] [place] [address]. [place] [address] [place] [address] Care Team Providers Care Survey Operations Director Name Role Phone Piyush Pandey MD Unavailable Unavailabl e Megan Infante MD Primary Care Provider [phone] Sharmila Davis APRN GLASS VIAL FILLER-C Unavailable Linda Block MD Unavailable [phone] Jeff Grace MD Unavailable Zaki Ortiz MD Unavailable [phone] Reason for Visit * Reason Onset Date Comments Returned Call 10/24/2020 Encounter Details Date Type Department Care Team (Late st Contact Info) Description 10/24/2020 Telephone [facility] Multispecialty [address] [address] Damaso Barnes MD [address] [place] [address] Returned Call Social History Tobacco Use Types Packs/Day [...] as of this encounter Progress Notes * Shelly Glass - 10/31/2020 9:01 AM CST Has been seen 3 PASTRY * Gilma Sanchez - 10/24/2020 4:48 PM CST Pt returned call. He wasn't home when you called. 3 PASTRY documented in this encounter Plan of Treatment Upcoming Encounters Date Type Department Care Team (Late st Contact Info) Description 09/25/2024 2:00 PM COOK 3 PASTRY Appointment [facility] [address] [place] [address] Zayra Powell, IMAGER [address] [place] [address] 10/16/2024 3:30 PM COOK 3 PASTRY Office Visit [facility] [address] [place] [phone] Brit Gonzáles MD [address] [place] [address] documented as of this encounter Visit Diagnoses Not on filedocumented in this encounter Additional Health Concerns Infection Onset Date Last Indicated Resolved Time COVID-19 Rule Out 02/08/2021 02/08/2021 02/08/2021 9:06 PM CDT documented as of this encounter Care Teams Survey Operations Director Relationship Specialty Start Date End Date Megan Infante MD [address] [place] [phone] PCP - General FAMILY PRACTICE 04/06/16 Piyush Pandey MD [place] Siding Coreboard Inspector CARDIOVASCULAR DISEASE 04/06/16 12/28/23 Sharmila Davsi APRN, GLASS VIAL FILLER-C [address] [facility] [address] [place] [phone] NURSE PRACTITIONER 01/04/17 04/03/24 Linda Block MD [address] [facility] [address] [place] [phone] [place] Siding Coreboard Inspector CLINICAL CARDIAC ELECTROPHYSIOLOGY 02/08/17 04/12/23 Jeff Grace MD [address] [facility] [address] [place] [phone] Consulting Physician INTERNAL MEDICINE 02/20/19 3 Zaki Ortiz MD [address] [facility] [address] [place] [phone] Consulting Physician PULMONARY DISEASE 07/12/19 documented as of this encounter
--- OUTSIDE RECORDS SUMMARY | 2024-09-03 19:13 | XMS_ITS | Encounter Summary ---
Author Organization [facility] Address [address] [place] [address]. [place] [address] [place] [address] Care Team Providers Care Assistant Prosecuting Attorney Name Role Phone Piyush Pandey MD Unavailable Unavailabl e Megan Infante MD Primary Care Provider [phone] Sharmila Davis APRN, NP-C Unavailable [phone] Linda Block MD Unavailable [phone] Jeff Grace MD Unavailable Zaki Ortiz MD Unavailable [phone] Reason for Visit * Reason Comments Hospital H&P (SCAN) Encounter Details Date Type Department Care Team (Late st Contact Info) Description 11/28/2020 Scan [facility] [facility] [place] [address] Scanned, Documents Hospital H&P (SCAN) Social History [...] st Contact Info) Description 09/25/2024 2:00 PM GUNITE NOZZLE OPERATOR Appointment [facility] [address] [facility] [place] [address] Zayra Powell, FORM BUILDER HELPER [address] [facility] [place] [address] 10/16/2024 3:30 PM GUNITE NOZZLE OPERATOR Office Visit [facility] [address] [place] [address] Brit Gonzáles MD [address] [place], [place] [phone] documented as of this encounter Visit Diagnoses Not on filedocumented in this encounter Additional Health Concerns Infection Onset Date Last Indicated Resolved Time COVID-19 Rule Out 02/08/2021 02/08/2021 02/08/2021 9:06 PM CDT documented as of this encounter Care Teams Assistant Prosecuting Attorney Relationship Specialty Start Date End Date Megan Infante MD [address] [facility] [place] [address] PCP - General FAMILY PRACTICE 04/06/16 Piyush Pandey MD [place] Lift Technician CARDIOVASCULAR DISEASE 04/06/16 12/28/23 Sharmila Davis APRN, DIRECTOR OF HEALTH CARE MARKETING-C [address] [facility] [address] [place] [phone] NURSE PRACTITIONER 01/04/17 04/03/24 Linda Block MD [address] [facility] [address] [place] [phone] [place] Lift Technician CLINICAL CARDIAC ELECTROPHYSIOLOGY 02/08/17 04/12/23 Jeff Grace MD [address] [place] [address] Consulting Physician INTERNAL MEDICINE 02/20/19 3 Zaki Ortiz MD [address] [place] [address] Consulting Physician PULMONARY DISEASE 07/12/19 documented as of this encounter
--- OUTSIDE RECORDS SUMMARY | 2024-09-03 19:13 | XMS_ITS | Encounter Summary ---
Author Organization [facility] Address [address] [place] [address]. [place] [address] [place] [address] Care Team Providers Care Winch Stripper Name Role Phone Piysuh Pandey MD Unavailable Unavailabl e Megan Infante MD Primary Care Provider [phone] Sharmila Davis APRN IMPORT CUSTOMS CLEARING AGENT-C Unavailable [phone] Linda Block MD Unavailable [phone] Jeff Grace MD Unavailable Zaki Ortiz MD Unavailable [phone] Encounter Details Date Type Department Care Team (Latest Contact Info) Description 05/20/2021 Travel Social History Tobacco Use Types Packs/Day [...] Contact Info) Description 09/25/2024 2:00 PM FURNACE MECHANIC HELPER Appointment [facility] [address] [place] [address] Zayra Powell, PRIMARY CLINICIAN [address] [place], [place] [phone] 10/16/2024 3:30 PM FURNACE MECHANIC HELPER Office Visit [facility] [address] [place] [address] Brit Gonzáles MD [address] [place], [place] [phone] documented as of this encounter Visit Diagnoses Not on filedocumented in this encounter Care Teams Winch Stripper Relationship Specialty Start Date End Date Megan Infante MD [address] [place] [address] PCP - General FAMILY PRACTICE 04/06/16 Piyush Pandey MD [place] Sales Agent Pest Control Service CARDIOVASCULAR DISEASE 04/06/16 12/28/23 Sharmila Davis APRN, IMPORT CUSTOMS CLEARING AGENT-C [address] [facility] [address] [place] [phone] NURSE PRACTITIONER 01/04/17 04/03/24 Linda Block MD [address] [facility] [address] [place] [phone] [place] Sales Agent Pest Control Service CLINICAL CARDIAC ELECTROPHYSIOLOGY 02/08/17 04/12/23 Jeff Grace MD [address] [facility] [address] [place] [phone] Consulting Physician INTERNAL MEDICINE 02/20/19 3 Zaki Ortiz MD [address] [place] [phone] Consulting Physician PULMONARY DISEASE 07/12/19 documented as of this encounter
--- OUTSIDE RECORDS SUMMARY | 2024-09-03 19:13 | XMS_ITS | Encounter Summary ---
Author Organization [facility] Address [address] [place] [address]. [place] [address] [place] [address] Care Team Providers Care Service Girl Name Role Phone Piyush Pandey MD Unavailable Unavailabl e Megan Infante MD Primary Care Provider [phone] Sharmila Davis APRN PATTERN CARRIER-C Unavailable Linda Block MD Unavailable [phone] Jeff Grace MD Unavailable Zaki Ortiz MD Unavailable [phone] Reason for Visit * Reason Onset Date Comments Results 04/21/2021 Encounter Details Date Type Department Care Team (Late st Contact Info) Description 04/21/2021 Telephone [facility] [address] [address] Damaso Barnes MD [address] [place] [address] Results Social History Tobacco Use [...] as of this encounter Progress Notes * Rosario Kelly CMA - 04/22/2021 11:17 AM CDT Pt verbalized understanding documented in this encounter Plan of Treatment Upcoming Encounters Date Type Department Care Team (Late st Contact Info) Description 09/25/2024 2:00 PM DOCK LOADER Appointment [facility] [address] [place] [address] Zayra Powell, [facility] [address] [place] [address] 10/16/2024 3:30 PM DOCK LOADER Office Visit [facility] [address] [place] [address] Brit Gonzáles MD [address] [place] [address] documented as of this encounter Visit Diagnoses Not on filedocumented in this encounter Care Teams Service Girl Relationship Specialty Start Date End Date Megan Infante MD [address] [place] [address] PCP - General FAMILY PRACTICE 04/06/16 Piyush Pandey MD [place] Ratchet Setter CARDIOVASCULAR DISEASE 04/06/16 12/28/23 Sharmila Davis, REGIONAL OWNER OPERATOR TRUCK DRIVER, PATTERN CARRIER-C [address] [place] [address] [address] [place] [address] NURSE PRACTITIONER 01/04/17 04/03/24 Linda Block MD [address] [facility] [address] [place] [phone] [place] Ratchet Setter CLINICAL CARDIAC ELECTROPHYSIOLOGY 02/08/17 04/12/23 Jeff Grace MD [address] [facility] [address] [place] [address] Consulting Physician INTERNAL MEDICINE 02/20/19 3 Zaki Ortiz MD [address] [facility] [address] [place] [address] Consulting Physician PULMONARY DISEASE 07/12/19 documented as of this encounter
--- OUTSIDE RECORDS SUMMARY | 2024-09-03 19:13 | XMS_ITS | Encounter Summary ---
Author Organization [facility] Address [address] [place] [address]. [place], [place] [address] [place] [address] Care Team Providers Care Garden Machinery Mechanic Name Role Phone Amauri Pandey MD Unavailable Unavailabl e Megan Infante MD Primary Care Provider [phone] Sharmila Davis APRN, NP-C Unavailable [phone] Linda Block MD Unavailable [phone] Jeff Grace MD Unavailable Zaki Ortiz MD Unavailable [phone] Reason for Referral * Imaging (Routine) - Closed Specialty Diagnoses / Procedures Referred By Yung sequeira Referred To Contact RADIOLOGY Diagnoses Mitral regurgitation Procedures USE TRANSESOPHAGEAL ECHO Amauri Pandey MD [place] [address] [place] [address] Phone: tel: fax: Referral ID Status Reason Start Date Expiration Date Visits Re quested Visits Authorized [id number] Closed 09/24/2020 10/22/2021 1 1 TION MANAGER Reason for Visit * Imaging (Routine) - Closed Specialty Diagnoses / Procedures Referred By Yung sequeira Referred To Contact RADIOLOGY Diagnoses Mitral regurgitation Procedures USE TRANSESOPHAGEAL ECHO Amauri Pandey MD [place] [address] [place] [address] Phone: tel: fax: Referral ID Status Reason Start Date Expiration Date Visits Re quested Visits Authorized [id number] Closed 09/24/2020 10/22/2021 1 1 Encounter Details Date Type Department Care Team (Latest Contact Info) Description 10/10/2020 6:37 AM LOCATION MANAGER - 10/10/2020 11:59 PM LOCATION MANAGER Hospital Encounter [facility] - [address] [address] Amauri Pandey MD Discharge Disposition: Home or Self Care (Routine [...] COVID-19? No / Unsure 10/10/2020 6:37 AM LOCATION MANAGER documented as of this encounter Last Filed Vital Signs Vital Sign Reading Time Taken Comments Blood Pressure 129/71 10/10/2020 9:05 AM LOCATION MANAGER Pulse 72 10/10/2020 9:05 AM LOCATION MANAGER Temperature 36.2 ??C (97.2 ??F) 10/10/2020 7:07 AM CS T Respiratory Rate 20 10/10/2020 9:05 AM LOCATION MANAGER Oxygen Saturation 96% 10/10/2020 9:05 AM LOCATION MANAGER Inhaled Oxygen Concentration - - Weight 95.6 kg (210 lb 12.2 oz) 10/10/2020 7:07 AM LOCATION MANAGER Height 170.2 cm (5' 7 ) 10/10/2020 7:07 AM LOCATION MANAGER Body Mass Index 33.01 10/10/2020 7:07 AM LOCATION MANAGER documented in this encounter Discharge Instructions * Attachments The following attachments cannot be sent through Care Everywhere. * Moderate Sedation in Adults Discharge Instructions (Welsh) * Transesophageal Echocardiogram (Welsh) documented in this encounter Medications at Time [...] directed 2 documented as of this encounter OR Notes * Pre-Sedation Assessment - Amauri Pandey MD - 10/10/2020 8:00 AM LOCATION MANAGER Sedation Pre-Evaluation Reviewed the following in the patient's chart: Patient summary Nursing notes ECG Family history reviewed Anesthesia history Medications Labs Images/Studies Patient has no history sedation complication Past sedation history was obtained from patient. Written consent was given by the patient for today's procedure. Discussed the following risks for today's procedure: allergic reaction, prolonged hypoxia resulting in organ damage, prolonged sedationnecessitating reversal and respiratory compromise necessitating ventilatory assistance and intubation. Reviewed the following alternative(s) to sedation: analgesia without sedation. Pre-Sedation Assessment The last time the patient had anything to eat or drink was 10/09/20. Patient has an ASA score of: 1.The plan is to use moderate (conscious sedation) sedation for today's procedure. Physical Exam: Airway Status: Mallampati: I Neck ROM: normal Cardiovascular: Rhythm: irregular Rate: normalMurmur present: (II) and (RSB) Friction rub is absent Peripheral edema is absent Weak pulses are absent Pulmonary: Rhonchi are absent Wheezing absent Rales are absent Stridor is absent Other findings: Distended abdomen. TION MANAGER * Brief Op Note - Amauri Pandey MD - 10/10/2020 8:00 AM CST General Procedure Op Note Procedure Note Obie Sims 10/10/2020 Procedure: NEMO Pre-Op Diagnosis: Pulmonary HTN, R/O significant mitral regurgitation. Post-Op Diagnosis: Mild mitral regurgitation. Findings: 1. Mild mitral regurgitation. 2. Normal appearing aortic valve bioprosthesis. 3. Mild LVH. Estimated LVEF at lower limits of normal. 4. Biatrial enlargement with spontaneous contrast. No overt thrombus or PFO. 5. Moderate atherosclerosis of the thoracic aorta. 6. Trace tricuspid regurgitation. Unable to reliably estimated PASP. Specimen(s) Removed: None Anesthesia: Procedural and Topical Surgeon: Katherin Kennel Worker: None Estimated Blood Loss: None AMAURI PANDEY MD Date: 10/10/2020 Time: 8:54 AM TION MANAGER documented in this encounter Plan of Treatment Upcoming Encounters Date Type Department Care Team (Late st Contact Info) Description 09/25/2024 2:00 PM LOCATION MANAGER Appointment [facility] [address] [place] [address] Zayra Powell, CUSTOMER SERVICE ATTENDANT [address] [place] [address] 10/16/2024 3:30 PM LOCATION MANAGER Office Visit [facility] [address] [place] [address] Brit Gonzáles MD [address] [place] [address] documented as of this encounter Procedures Procedure Name Priority Date/Time Associated Diagnosis Comments USE TRANSESOPHAGEAL ECHO Routine 10/10/2020 8:56 AM LOCATION MANAGER Mitral regurgitation PROTHROMBIN TIME, VENOUS Routine 10/10/2020 6:47 AM LOCATION MANAGER Mitral regurgitation documented in this encounter Results * USE TRANSESOPHAGEAL ECHO (10/10/2020 8:56 AM LOCATION MANAGER) Anatomical Region Laterality Modality Cardiac Echocardiogram, Cardiac Electrophysiology, Cardiac Electrophysiology 10/10/2020 7:49 AM LOCATION MANAGER Narrative 10/13/2020 5:32 PM LOCATION MANAGER ?Transesophageal Echocardiography Report Pat.Name: ??OBIE SIMS ?Pat.ID: ?[id number] ? St.Date: ?? 10/10/2020 ? Refer.MD: ??[id number], AMAURI PANDEY Exam Time: 7:49:00 AM ? Study Type:TRANSESOPHAGEAL ECHO (NEMO) Height: ?66.93in ? Weight: ?209lb ? BSA: ? 2.06 m2 ?Age: ??1955,65Y ? Sex: ? MALE ?BP: ?132/74 ? HR: ?86 bpm ?Sonogrphr: Arsenio Singleton RD ? Pat. Stat.:Outpatient ?CPT - 4: ?[id number] ? Reason for Study:Mitral regurgitation History / Clinical:Shortness of breath, dyspnea Procedures: Transesophageal ? Race: ?W ? ++++++++++++++++++++++++++++++++++++ SUMMARY: ++++++++++++++++++++++++++++++++++++ Mild mitral regurgitation. 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 Mild concentric left ventricular hypertrophy. ??The left ventricular systolic function is normal. ??Estimated left ventricular ejection fraction is 55%. Biatrial enlargement with spontaneous contrast. ??No overt thrombus or PFO. The thoracic aorta is moderately atherosclerotic. Trace tricuspid regurgitation. ??Unable to reliably quantitate pulmonary systolic pressure. ++++++++++++++++++++++++++++++++++++ FINDINGS: ++++++++++++++++++++++++++++++++++++ NEMO: ?The patient was counseled and an informed consent was ?obtained. The posterior pharynx was anesthetized. The ?patient was placed in a left lateral recumbent position and ?a plastic bite was inserted into the mouth. IV sedation was ?administered. The transesophageal echo probe was inserted ?into the posterior pharynx and the esophagus was then ?intubated without difficulty. Multiple views were then ?obtained from the upper, mid, and lower esophagus and the ?gastric fundus. The scope was rotated 180 degrees and the ?aorta was visualized. The scope was withdrawn under ?continuous suction. The patient tolerated the procedure well ?without any apparent complications. LV: ? The left ventricular size is normal. The left ventricular ?systolic function is normal. Estimated left ventricular ?ejection fraction is 55%. Mild concentric left ventricular ?hypertrophy. LVOT: ? The left ventricular outflow tract size is normal. RV: ? The right ventricular size is normal. Right ventricular ?systolic function is normal. IVS: ?Intraventricular septum is normal. LA: ? The left atrial size is severely enlarged. Left atrial ?appendage velocity is severely reduced. RA: ? Right atrial size is dilated. IAS: ?The agitated saline injection showed no clear evidence of ?shunting into the left atrium, consistent with no patent ?foramen ovale. TING: ? No evidence of pericardial effusion. AO: ? Normal aortic root. The aorta is atherosclerotic. PA: ? Unable to reliably quantitate pulmonary systolic pressure. PVn: ?Pulmonary vein velocity is consistent with increased left ?atrial pressures. SVn: ?Systemic veins not well visualized. AV: ? 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 No evidence of ?ting-prosthetic aortic valve regurgitation. No evidence of ?central prosthetic aortic valve regurgitation. Trivial ?degree of prosthetic aortic valve stenosis. MV: ? Structurally normal mitral valve. Mild mitral regurgitation. ?No evidence of mitral stenosis. PV: ? Structurally normal pulmonic valve. Trace pulmonic ?regurgitation. No evidence of pulmonic valve stenosis. TV: ? Structurally normal tricuspid valve. A trace of tricuspid ?regurgitation. No evidence of tricuspid valve stenosis. ++++++++++++++++++++++++++++++++++++ NEMO: ++++++++++++++++++++++++++++++++++++ Pre NEMO ?BP ?? HR ? Post NEMO ? BP ?? HR Meds: ?Lidocaine gel was applied to throat., Benzocaine spray was used with 2 sprays., Meperidine/Demerol 25 mg IV, Midazolam/Versed 4 mg IV Comments: ??NEMO probe 50 was utilized. ++++++++++++++++++++++++++++++++++++ MEASUREMENTS: ++++++++++++++++++++++++++++++++++++ ?DOPPLER MV Forward Flow MV DeTm ?194 ms ?MV P1/2t ?57 ms ?? (30-60)+ MVA P1/2t ? 3.86 cm2 ??(4-6)* ?? MV pkE ? 134 cm/s (60-130)* ?2D Aorta ?? Ao Rtd ? 2.7 cm ?? (zsc -0.6)+ Ao Asc ? 3 cm ?? (zsc 1.5) Aortic Sinotubular Junction ?? Diameter ?2.81 cm ? Signed 10/13/2020 05:32 PM Amauri Pandey M.D. Procedure Note Amauri Pandey MD - 10/13/2020 Transesophageal Echocardiography Report Pat.Name: OBIE SIMS Pat.ID: [id number] St.Date: 10/10/2020 Refer.: [id number] ROBERT Exam Time: 7:49:00 AM Study Type:TRANSESOPHAGEAL ECHO (NEMO) Height: 66.93in Weight: 209lb BSA: 2.06 m2 Age: 11 1955,65Y Sex: MALE BP: 132/74 HR: 86 bpm Sonogrphr: Arsenio Singleton [facility] Pat. Stat.:Outpatient CPT - 4: [id number] Reason for Study:Mitral regurgitation History / Clinical:Shortness of breath, dyspnea Procedures: Transesophageal Race: W ++++++++++++++++++++++++++++++++++++ SUMMARY: ++++++++++++++++++++++++++++++++++++ Mild mitral regurgitation. 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 Mild concentric left ventricular hypertrophy. The left ventricular systolic function is normal. Estimated left ventricular ejection fraction is 55%. Biatrial enlargement with spontaneous contrast. No overt thrombus or PFO. The thoracic aorta is moderately atherosclerotic. Trace tricuspid regurgitation. Unable to reliably quantitate pulmonary systolic pressure. ++++++++++++++++++++++++++++++++++++ FINDINGS: ++++++++++++++++++++++++++++++++++++ NEMO: The patient was counseled and an informed consent was obtained. The posterior pharynx was anesthetized. The patient was placed in a left lateral recumbent position and a plastic bite was inserted into the mouth. IV sedation was administered. The transesophageal echo probe was inserted into the posterior pharynx and the esophagus was then intubated without difficulty. Multiple views were then obtained from the upper, mid, and lower esophagus and the gastric fundus. The scope was rotated 180 degrees and the aorta was visualized. The scope was withdrawn under continuous suction. The patient tolerated the procedure well without any apparent complications. LV: The left ventricular size is normal. The left ventricular systolic function is normal. Estimated left ventricular ejection fraction is 55%. Mild concentric left ventricular hypertrophy. LVOT: The left ventricular outflow tract size is normal. RV: The right ventricular size is normal. Right ventricular systolic function is normal. IVS: Intraventricular septum is normal. LA: The left atrial size is severely enlarged. Left atrial appendage velocity is severely reduced. RA: Right atrial size is dilated. IAS: The agitated saline injection showed no clear evidence of shunting into the left atrium, consistent with no patent foramen ovale. TING: No evidence of pericardial effusion. AO: Normal aortic root. The aorta is atherosclerotic. PA: Unable to reliably quantitate pulmonary systolic pressure. PVn: Pulmonary vein velocity is consistent with increased left atrial pressures. SVn: Systemic veins not well visualized. AV: Bio prosthetic aortic valve seen. No evidence of ting-prosthetic aortic valve regurgitation. No evidence of central prosthetic aortic valve regurgitation. Trivial degree of prosthetic aortic valve stenosis. MV: Structurally normal mitral valve. Mild mitral regurgitation. No evidence of mitral stenosis. PV: Structurally normal pulmonic valve. Trace pulmonic regurgitation. No evidence of pulmonic valve stenosis. TV: Structurally normal tricuspid valve. A trace of tricuspid regurgitation. No evidence of tricuspid valve stenosis. ++++++++++++++++++++++++++++++++++++ NEMO: ++++++++++++++++++++++++++++++++++++ Pre NEMO BP HR Post NEMO BP HR Meds: Lidocaine gel was applied to throat., Benzocaine spray was used with 2 sprays., Meperidine/Demerol 25 mg IV, Midazolam/Versed 4 mg IV Comments: NEMO probe 50 was utilized. ++++++++++++++++++++++++++++++++++++ MEASUREMENTS: ++++++++++++++++++++++++++++++++++++ DOPPLER MV Forward Flow MV DeTm 194 ms MV P1/2t 57 ms (30-60)+ MVA P1/2t 3.86 cm2 (4-6)* MV pkE 134 cm/s (60-130)* 2D Aorta Ao Rtd 2.7 cm (zsc -0.6)+ Ao Asc 3 cm (zsc 1.5) Aortic Sinotubular Junction Diameter 2.81 cm Signed 10/13/2020 05:32 PM Amauri Pandey M.D. Amauri Pandey MD ECHO Final Resul t * (ABNORMAL) PROTIME/INR, VENOUS (10/10/2020 6:47 AM LOCATION MANAGER) PROTIME 34.7(H) 10.2 - 12.9 SEC 10/10/2020 7:04 AM LOCATION MANAGER [facility] INR 3.0(H) 0.9 - 1.1 10/10/2020 7:04 AM LOCATION MANAGER [facility] 10/10/2020 6:47 AM LOCATION MANAGER Amauri Pandey MD LABORATORY Final Resul t Performing Organization Address City/State/[facility] Co de Phone Number [facility] [address] [place] [address], [id number] documented in this encounter Visit Diagnoses Diagnosis Mitral regurgitation Mitral valve disorders documented in this encounter Administered Medications Inactive Administered Medications - up to 3 most recent administrations Medication Order MAR Action Action Date Dose Rate Site benzocaine 20 % (HURRICAINE) mouth solution Code/trauma/sedation medication, Starting on Taisha 10/10/20 at 0807, Until Taisha 10/10/20 at 0807 Given 10/10/2020 8:07 AM LOCATION MANAGER 2 sprays lidocaine (XYLOCAINE) 2 % jelly Code/trauma/sedation medication, Starting on Taisha 10/10/20 at 0808, Until Taisha 10/10/20 at 0808 Given 10/10/2020 8:08 AM LOCATION MANAGER 2 Tubes meperidine (DEMEROL) injection Code/trauma/sedation medication, Starting on Taisha 10/10/20 at 0807, Until Taisha 10/10/20 at 0807 Given 10/10/2020 8:07 AM LOCATION MANAGER 25 mg midazolam (VERSED) injection Code/trauma/sedation medication, Starting on Taisha 10/10/20 at 0806, Until Taisha 10/10/20 at 0826 Given 10/10/2020 8:26 AM LOCATION MANAGER 1 mg Given 10/10/2020 8:15 AM LOCATION MANAGER 1 mg Given 10/10/2020 8:06 AM LOCATION MANAGER 2 mg sodium chloride (PF) 0.9 % flush Code/trauma/sedation medication, Starting on Taisha 10/10/20 at 0830, Until Taisha 10/10/20 at 0830 Given 10/10/2020 8:30 AM LOCATION MANAGER 10 mLs sodium chloride 0.9% infusion Intravenous, Code/trauma/sedation continuous medication, Starting on Taisha 10/10/20 at 0731, Until Taisha 10/10/20 at 0731 New Bag 10/10/2020 7:31 AM LOCATION MANAGER 10 mL/hr 10 mL/hr documented in this encounter Care Teams Garden Machinery Mechanic Relationship Specialty Start Date End Date Megan Infante MD [address] [place] [address] PCP - General FAMILY PRACTICE 04/06/16 Amauri Pandey MD [place] Track Rider CARDIOVASCULAR DISEASE 04/06/16 12/28/23 Sharmila Davis, COMMUNICATIONS TECH, TECHNICAL MARKETING ENGINEER-C [address] [facility] [address] [place] [address] NURSE PRACTITIONER 01/04/17 04/03/24 Linda Block MD [address] [facility] [address] [address] [place] Track Rider CLINICAL CARDIAC ELECTROPHYSIOLOGY 02/08/17 04/12/23 Jeff Grace MD [address] [facility] [address] [address] Consulting Physician INTERNAL MEDICINE 02/20/19 3 Zaki Ortiz MD [address] [facility] [address] [place] [address] Consulting Physician PULMONARY DISEASE 07/12/19 documented as of this encounter
--- OUTSIDE RECORDS SUMMARY | 2024-09-03 19:13 | XMS_ITS | Encounter Summary ---
Author Organization [facility] Address [address] [place] [address]. [place] [address] [place] [address] Care Team Providers Care Manager Of Radiology Name Role Phone Piyush Pandey MD Unavailable Unavailabl e Megan Infante MD Primary Care Provider [phone] Sharmila Davis APRN, HEALTH ASSESSMENT AND TREATMENT TEACHER-C Unavailable [phone] Linda Block MD Unavailable [phone] Jeff Grace MD Unavailable Zaki Ortiz MD Unavailable [phone] Encounter Details Date Type Department Care Team (Latest Contact Info) Description 10/10/2020 Travel Social History Tobacco Use Types Packs/Day [...] COVID-19? No / Unsure 10/10/2020 6:37 AM TEST WORKER documented as of this encounter Plan of Treatment Upcoming Encounters Date Type Department Care Team (Late st Contact Info) Description 09/25/2024 2:00 PM TEST WORKER Appointment [facility] [address] [place] [address] Zayra Powell, [facility] [address] [place] [address] 10/16/2024 3:30 PM TEST WORKER [facility] [address] [place] [address] Brit Gonzáles MD [address] [place], [place] [address] documented as of this encounter Visit Diagnoses Not on filedocumented in this encounter Care Teams Manager Of Radiology Relationship Specialty Start Date End Date Megan Infante MD [address] [place] [address] PCP - General FAMILY PRACTICE 04/06/16 Piyush Pandey MD [place] Psychic Reader CARDIOVASCULAR DISEASE 04/06/16 12/28/23 Sharmila Davis, NEGATIVE CHECKER, HEALTH ASSESSMENT AND TREATMENT TEACHER-C [address] [facility] [address] [place] [address] NURSE PRACTITIONER 01/04/17 04/03/24 Linda Block MD [address] [facility] [address] [place] [address] [place] Psychic Reader CLINICAL CARDIAC ELECTROPHYSIOLOGY 02/08/17 04/12/23 Jeff Grace MD [address] [facility] [address] [place] [address] Consulting Physician INTERNAL MEDICINE 02/20/19 6 3 Zaki Ortiz MD [address] [facility] [address] [place] [address] Consulting Physician PULMONARY DISEASE 07/12/19 documented as of this encounter
--- OUTSIDE RECORDS SUMMARY | 2024-09-03 19:13 | XMS_ITS | Encounter Summary ---
Author Organization [facility] Address [address] [place] [address]. [place] [address] [place] [address] Care Team Providers Care Slat Basket Maker Helper Name Role Phone Piyush Pandey MD Unavailable Unavailabl e Megan Infante MD Primary Care Provider [phone] Sharmila Davis APRN, NP-C Unavailable [phone] Linda Block MD Unavailable [phone] Jeff Grace MD Unavailable Zaki Ortiz MD Unavailable [phone] Reason for Visit * Reason Comments Hospital H&P (SCAN) Encounter Details Date Type Department Care Team (Late st Contact Info) Description 11/28/2020 Scan [facility] Information Services [facility] [facility] [address] Scanned, Documents Hospital H&P (SCAN) Social History [...] COVID-19? No / Unsure 10/30/2020 2:44 PM WEB ANALYTICS DEVELOPER documented as of this encounter Plan of Treatment Upcoming Encounters Date Type Department Care Team (Late st Contact Info) Description 09/25/2024 2:00 PM WEB ANALYTICS DEVELOPER Appointment [facility] [address] [facility] [address] Zayra Powell, PERSONNEL ASSOCIATE [address] [facility] [place] [phone] 10/16/2024 3:30 PM WEB ANALYTICS DEVELOPER Office Visit [facility] [address] [facility] [address] Brit Gonzáles MD [address] [place] [address] documented as of this encounter Visit Diagnoses Not on filedocumented in this encounter Care Teams Slat Basket Maker Helper Relationship Specialty Start Date End Date Megan Infante MD [address] [place] [address] PCP - General FAMILY PRACTICE 04/06/16 Piyush Pandey MD [place] Crown Perforator Operator CARDIOVASCULAR DISEASE 04/06/16 12/28/23 Sharmila Davis, VICE PRESIDENT INTEGRATED, HAT BAND ATTACHER-C [address] [facility] [address] [place] [address] NURSE PRACTITIONER 01/04/17 04/03/24 Linda Block MD [address] [facility] [address] [place] [address] [place] Crown Perforator Operator CLINICAL CARDIAC ELECTROPHYSIOLOGY 02/08/17 04/12/23 Jeff Grace MD [address] [place] [address] Consulting Physician INTERNAL MEDICINE 02/20/19 3 Zaki Ortiz MD [address] [place] [address] Consulting Physician PULMONARY DISEASE 07/12/19 documented as of this encounter
--- OUTSIDE RECORDS SUMMARY | 2024-09-03 19:13 | XMS_ITS | Encounter Summary ---
Author Organization [facility] Address [address] [place] [address]. [place] [address] [place] [address] Care Team Providers Care Paper Hanger Name Role Phone Piyush Pandey MD Unavailable Unavailabl e Megan Infante MD Primary Care Provider [phone] Sharmila Davis APRN DRIVER GUARD-C Unavailable [phone] Linda Block MD Unavailable [phone] Jeff Grace MD Unavailable Zaki Ortiz MD Unavailable [phone] Encounter Details Date Type Department Care Team (Latest Contact Info) Description 02/11/2021 Travel Social History Tobacco Use Types Packs/Day [...] st Contact Info) Description 09/25/2024 2:00 PM JEWELRY MODEL MAKER Appointment [facility] [address] [place] [address] Zayra Powell, CERTIFIED LEGAL INVESTIGATOR [address] [place], [place] [phone] 10/16/2024 3:30 PM JEWELRY MODEL MAKER Office Visit [facility] [address] [place] [address] Brit Gonzáles MD [address] [place], [place] [phone] documented as of this encounter Visit Diagnoses Not on filedocumented in this encounter Care Teams Paper Hanger Relationship Specialty Start Date End Date Megan Infante MD [address] [place] [address] PCP - General FAMILY PRACTICE 04/06/16 Piyush Pandey MD [place] Diesel Truck Crane Operator CARDIOVASCULAR DISEASE 04/06/16 12/28/23 Sharmila Davis APRN, DRIVER GUARD-C [address] [facility] [address] [place] [phone] NURSE PRACTITIONER 01/04/17 04/03/24 Linda Block MD [address] [facility] [address] [place] [phone] [place] Diesel Truck Crane Operator CLINICAL CARDIAC ELECTROPHYSIOLOGY 02/08/17 04/12/23 Jeff Grace MD [address] [facility] [address] [place] [phone] Consulting Physician INTERNAL MEDICINE 02/20/19 3 Zaki Ortiz MD [address] [facility] [address] [place] [phone] Consulting Physician PULMONARY DISEASE 07/12/19 documented as of this encounter
--- OUTSIDE RECORDS SUMMARY | 2024-09-03 19:13 | XMS_ITS | Encounter Summary ---
Author Organization [facility] Address [address] [place] [address]. [place] [address] [place] [address] Care Team Providers Care Warp Knitter Helper Name Role Phone Piyush Pandey MD Unavailable Unavailabl e Megan Infante MD Primary Care Provider [phone] Sharmila Davis APRN, STATUE CARVER-C Unavailable Linda Block MD Unavailable [phone] Jeff Grace MD Unavailable Zaki Ortiz MD Unavailable [phone] Encounter Details Date Type Department Care Team (Late st Contact Info) Description 06/16/2021 Orders Only [facility] Medical Group Multispecialty [facility] [address] [place] [phone] Damaso Barnes MD [address] [place] [address] Social History Tobacco Use Types [...] st Contact Info) Description 09/25/2024 2:00 PM PIG STICKER Appointment [facility] [address] [place] [address] Zayra Powell, PAYROLL REPRESENTATIVE [address] [facility] [place] [address] 10/16/2024 3:30 PM PIG STICKER Office Visit [facility] [address] [place] [address] Brit Gonzáles MD [address] [place], [place] [phone] documented as of this encounter Visit Diagnoses Diagnosis Obstructive sleep apnea- Primary Obstructive sleep apnea (adult) (pediatric) documented in this encounter Care Teams Warp Knitter Helper Relationship Specialty Start Date End Date Megan Infante MD [address] [facility] [place] [address] PCP - General FAMILY PRACTICE 04/06/16 Piyush Pandey MD [place] Packerhead Machine Operator CARDIOVASCULAR DISEASE 04/06/16 12/28/23 Sharmila Davis APRN, STATUE CARVER-C [address] [facility] [address]H16 [place] [phone] NURSE PRACTITIONER 01/04/17 04/03/24 Linda Block MD [address] [facility] [address] [place] [phone] [place] Packerhead Machine Operator CLINICAL CARDIAC ELECTROPHYSIOLOGY 02/08/17 04/12/23 Jeff Grace MD [address] [place] [address] Consulting Physician INTERNAL MEDICINE 02/20/19 3 Zaki Ortiz MD [address] [place] [address] Consulting Physician PULMONARY DISEASE 07/12/19 documented as of this encounter
--- OUTSIDE RECORDS SUMMARY | 2024-09-03 19:13 | XMS_ITS | Encounter Summary ---
Author Organization [facility] Address [address] [place] [address]. [place] [address] [place] [address] Care Team Providers Care Sharepoint Administrator Name Role Phone Piyush Pandey MD Unavailable Unavailabl e Megan Infante MD Primary Care Provider [phone] Sharmila Davis APRN LEVER MILLER-C Unavailable [phone] Linda Block MD Unavailable [phone] Jeff Grace MD Unavailable Zaki Ortiz MD Unavailable [phone] Encounter Details Date Type Department Care Team (Late st Contact Info) Description 02/18/2021 11:50 AM CDT - 02/18/2021 11:58 AM CDT Hospital Encounter [facility] [address] [place] [address] Jacquie aMrtel, PA-C [address] [place] [address] Discharge Disposition: Home or Self [...] st Contact Info) Description 09/25/2024 2:00 PM ASPHALT PAVING SUPERINTENDENT Appointment [facility] [address] [facility] [address] Zayra Powell, FINISH ROLLS OPERATOR [address] [place] [address] 10/16/2024 3:30 PM ASPHALT PAVING SUPERINTENDENT Office Visit [facility] [address] [facility] [place] [phone] Brit Gonzáles MD [address] [place], [place] [phone] documented as of this encounter Procedures Procedure Name Priority Date/Time Associated Diagnosis Comments PROTHROMBIN TIME, VENOUS Routine 02/18/2021 12:06 PM CDT Atrial fibrillation status post cardioversion ([facility] HHS/HCC) Type 2 diabetes mellitus treated without insulin ([facility] HHS/HCC) BASIC METABOLIC PANEL Routine 02/18/2021 12:06 PM CDT Atrial fibrillation status post cardioversion ([facility] HHS/HCC) Type 2 diabetes mellitus treated without insulin ([facility] HHS/HCC) documented in this encounter Results * (ABNORMAL) BASIC METABOLIC PANEL (02/18/2021 12:06 PM CDT) SODIUM S/P/B 140 136 - 145 MMOL/L 02/18/2021 12:20 PM CDT [facility] POTASSIUM S/P/B 4.7 3.5 - 5.1 MMOL/L 02/18/2021 12:20 PM CDT [facility] CHLORIDE S/P/B 101 98 - 107 MMOL/L 02/18/2021 12:20 PM CDT [facility] CO2 30.8 21.0 - 32.0 MMOL/L 02/18/2021 12:20 PM T [facility] GLUCOSE 177(H) 70 - 99 MG/DL 02/18/2021 12:20 PM T [facility] Comment: FASTING GLUCOSE 100 TO 125 MG/DL IS CONSISTENT WITH IMPAIRED FASTING GLUCOSE. FASTING GLUCOSE >125 MG/DL IS CONSISTENT WITH DIABETES. RANDOM GLUCOSE >200 MG/DL WITH HYPERGLYCEMIC SYMPTOMS IS CONSISTENT WITH DIABETES. PER ADA GUIDELINES BUN 20 6 - 24 MG/DL 02/18/2021 12:20 PM T [facility] CREATININE S/P/B 1.37(H) 0.70 - 1.30 MG/DL 02/18/2021 12:20 PM T [facility] CALCIUM S/P/B 9.4 8.4 - 10.5 MG/DL 02/18/2021 12:20 PM [facility] ANION GAP 8.2 5.0 - 15.0 MMOL/L 02/18/2021 12:20 PM T [facility] OSMOLALITY (CALC) 297 MOSM/KG 021 12:20 PM T [facility] Comment:REFERENCE RANGE NOT ESTABLISHED EGFR NON-AFR. AMER. 53(L) >89 ML/MIN/1. 73 M2 02/18/2021 12:20 PM [facility] EGFR AFR. AMER. 62(L) >89 ML/MIN/1. 73 M2 02/18/2021 12:20 PM [facility] GFR NOTES GFR REFERENCE S: 02/18/2021 12:20 PM [facility] Comment: THE ESTIMATED [...] ml/min/1.73 m2 02/18/2021 12:0 6 PM CDT Jacquie REBOLLEDO-C LABORATORY Final Resul t Performing Organization Address [facility] Co de Phone Number [facility] [address] [place] [address], * (ABNORMAL) PROTIME/INR, VENOUS (02/18/2021 12:06 PM CDT) PROTIME 30.6(H) 9.4 - 12.5 SEC 02/18/2021 12:18 PM CDT [facility] INR 2.7(H) 0.9 - 1.1 02/18/2021 12:18 PM CDT [facility] 02/18/2021 12:0 6 PM CDT Jacquie REBOLLEDO-C LABORATORY Final Resul t Performing Organization Address [facility] de Phone Number [facility] [address] [place] [address], documented in this encounter Visit Diagnoses Diagnosis Atrial fibrillation status post cardioversion ([facility] HHS/HCC) Cardiac complications Type 2 diabetes mellitus treated without insulin ([facility]) documented in this encounter Care Teams Sharepoint Administrator Relationship Specialty Start Date End Date Megan Infante MD [address] [place] [phone] PCP - General FAMILY PRACTICE 04/06/16 Piyush Pandey MD [place] Employment Consultant CARDIOVASCULAR DISEASE 04/06/16 12/28/23 Sharmila Davis, CLAIM MANAGER, LEVER MILLER-C [address] [facility] [address] [place] [phone] NURSE PRACTITIONER 01/04/17 04/03/24 Linda Block MD [address] [place] [address] [place] Employment Consultant CLINICAL CARDIAC ELECTROPHYSIOLOGY 02/08/17 04/12/23 Jeff Grace MD [address] [facility] [address] [place] [address] Consulting Physician INTERNAL MEDICINE 02/20/19 3 Zaki Ortiz MD [address] [facility] [address] [place] [address] Consulting Physician PULMONARY DISEASE 07/12/19 documented as of this encounter
--- OUTSIDE RECORDS SUMMARY | 2024-09-03 19:13 | XMS_ITS | Encounter Summary ---
Author Organization [facility] Address [facility] [place] [address] [place] [address] Care Team Providers Care Black Ash Burner Operator Name Role Phone Piyush Pandey MD Unavailable Unavailabl e Megan Infante MD Primary Care Provider [phone] Sharmila Davis APRN MOULDER OPERATOR-C Unavailable [phone] Linda Block MD Unavailable [phone] Jeff Grace MD Unavailable Zaki Ortiz MD Unavailable [phone] Reason for Referral * Consultation (Routine) - Closed Specialty Diagnoses / Procedures Referred By Yung t Referred To Contact SLEEP & RESPIRATORY CARE Diagnoses Pulmonary hypertension ([facility]) Sleep apnea Piyush Pandey MD Prabhu, Manjeshwar B, MD [facility] [place] [address] Phone: tel: fax: Referral ID Status Reason Start Date Expiration Date V isits Requested Visits Authorized [id number] Closed Specialty Services 10/23/2020 11/23/2021 100 100 S ASSOCIATE Encounter Details Date Type Department Care Team (Late st Contact Info) Description 10/23/2020 Orders Only [facility] [address] [place] [phone] Piyush Pandey MD Social History Tobacco Use Types Packs/Day [...] COVID-19? No / Unsure 10/10/2020 6:37 AM SALES ASSOCIATE documented as of this encounter Plan of Treatment Upcoming Encounters Date Type Department Care Team (Late st Contact Info) Description 09/25/2024 2:00 PM SALES ASSOCIATE Appointment [facility] [address] [place] [address] Zayra Powell, [facility] [address] [place] [address] 10/16/2024 3:30 PM SALES ASSOCIATE Office Visit [facility] [address] [place] [phone] Brit Gonzáles MD [address] [place] [address] Scheduled Referrals Name Type Priority Associated Diagnoses Orde r Schedule Ambulatory referral to Pulmonology/Sleep and Respiratory Care Referral Routine Pulmonary hypertension ([facility]) Sleep apnea Ordered: 10/23/2020 documented as of this encounter Visit Diagnoses Diagnosis Pulmonary hypertension ([facility])- Primary Other chronic pulmonary heart diseases Sleep apnea Unspecified sleep apnea documented in this encounter Care Teams Black Ash Burner Operator Relationship Specialty Start Date End Date Megan Infante MD [address] [place] [phone] PCP - General FAMILY PRACTICE 04/06/16 Piyush Pandey MD [place] Drill Press Hand CARDIOVASCULAR DISEASE 04/06/16 12/28/23 Sharmila Davis, DANNY, MOULDER OPERATOR-C [address] [facility] [address] [place] [address] NURSE PRACTITIONER 01/04/17 04/03/24 Linda Block MD [address] [address] [place] Drill Press Hand CLINICAL CARDIAC ELECTROPHYSIOLOGY 02/08/17 04/12/23 Jeff Grace MD [address] [phone] Consulting Physician INTERNAL MEDICINE 02/20/19 3 Zaki Ortiz MD [address] [phone] Consulting Physician PULMONARY DISEASE 07/12/19 documented as of this encounter
--- OUTSIDE RECORDS SUMMARY | 2024-09-03 19:14 | XMS_ITS | Encounter Summary ---
Author Organization [facility] Address [address] [place] [address]. [place] [address] [place] [address] Care Team Providers Care Wood Stock Blank Handler Name Role Phone Piyush Pandey MD Unavailable Unavailabl e Megan Infante MD Primary Care Provider [phone] Sharmila Davis APRN, NP-C Unavailable Linda Block MD Unavailable [phone] Jeff Grace MD Unavailable Zaki Ortiz MD Unavailable [phone] Reason for Visit * Reason Onset Date Comments Medication Question 07/01/2020 Encounter Details Date Type Department Care Team (Late st Contact Info) Description 07/01/2020 Telephone [facility] [address] [place] [phone] Piyush Pandey MD Medication Question Social History Tobacco Use Types Packs/Day [...] or suspected to have Coronavirus / COVID-19? Unable to assess 06/24/2020 11:52 AM DRAGLINE OPERATOR documented as of this encounter Progress Notes * Theresa Manzo RN - 07/01/2020 1:42 PM CST Pt called for [place] office to ask when he is to start holding coumadin for upcoming heart cath. Chart reviewed. Noted pt to hold coumadin 5 days prior. The cath is on Wednesday.. Pt states he will hold starting today,he took it yesterday. No other questions. LINE OPERATOR documented in this encounter Plan of Treatment Upcoming Encounters Date Type Department Care Team (Late st Contact Info) Description 09/25/2024 2:00 PM DRAGLINE OPERATOR Appointment [facility] [address] [place] [address] Zayra Powell, ATTENDING UROLOGIST [address] [facility] [place] [address] 10/16/2024 3:30 PM DRAGLINE OPERATOR Office Visit [facility] [address] [facility] [place] [phone] Brit Gonzáles MD [address] [place] [address] documented as of this encounter Visit Diagnoses Not on filedocumented in this encounter Care Teams Wood Stock Blank Handler Relationship Specialty Start Date End Date Megan Infante MD [address] [place] [address] PCP - General FAMILY PRACTICE 04/06/16 Piyush Pandey MD [place] Experimental Electronics Developer CARDIOVASCULAR DISEASE 04/06/16 12/28/23 Sharmila Davis APRN, HORTICULTURAL SPECIALTY GROWER FIELD-C [address] [place] [address] 4P[address] [place] [address] NURSE PRACTITIONER 01/04/17 04/03/24 Linda Block MD [address] [place] [address] [place] Experimental Electronics Developer CLINICAL CARDIAC ELECTROPHYSIOLOGY 02/08/17 04/12/23 Jeff rGace MD [address] [email or web address] [address] [place] [phone] Consulting Physician INTERNAL MEDICINE 02/20/19 3 Zaki Ortiz MD [address] [facility] [[email or web address] [address] [place] [phone] Consulting Physician PULMONARY DISEASE 07/12/19 documented as of this encounter
--- OUTSIDE RECORDS SUMMARY | 2024-09-03 19:14 | XMS_ITS | Encounter Summary ---
Author Organization [facility] Address [facility] [facility] [place] [address] [place] [address] Care Team Providers Care Optic Fibre Drawer Name Role Phone Piyush Pandey MD Unavailable Unavailabl e Megan Infante MD Primary Care Provider [phone] Sharmila Davis APRN, COMPOUNDER-C Unavailable Linda Block MD Unavailable [phone] Jeff Grace MD Unavailable Encounter Details Date Type Department Care Team (Late st Contact Info) Description 05/25/2019 Abstract [facility] [address] [place] [address] Sharmila Davis, DANNY, COMPOUNDER-C [address] [facility] [address] [place] [address] Social History Tobacco Use Types [...] Info) Description 09/25/2024 2:00 PM DIRECTOR OF DATABASE MARKETING Appointment [facility] [address] [place] [address] Zayra Powell, EYEWEAR MANUFACTURING SUPERVISOR [address] [place] [address] 10/16/2024 3:30 PM DIRECTOR OF DATABASE MARKETING Office Visit [facility] [address] [place] [phone] Brit Gonzáles MD [address] [place] [address] documented as of this encounter Procedures Procedure Name Priority Date/Time Associated Diagnosis Comments PROTHROMBIN TIME, VENOUS Routine 05/22/2019 BASIC METABOLIC PANEL Routine 05/22/2019 [facility] use of drug documented in this encounter Results * (ABNORMAL) PROTIME/INR, VENOUS (05/22/2019) PROTIME WHOLE BLOOD 30.8(A) 9.6 - 11.0 INR WHOLE BLOOD 2.94 05/22/2019 [facility] Final Result * (ABNORMAL) BASIC METABOLIC PANEL (05/22/2019) SODIUM S/P/B 138 136 - 145 POTASSIUM S/P/B 4.5 3.5 - 5.1 CO2 33(A) 21 - 32 CHLORIDE S/P/B 99 98 - 108 GLUCOSE 176(A) 70 - 99 mg/dL CALCIUM S/P/B 9.5 8.5 - 10.1 BUN 31(A) 7 - 18 CREATININE S/P/B 1.38(A) 0.7 - 1.3 EGFR NON-AFR. AMER. 55 05/22/2019 us Sharmila Davis APRN, COMPOUNDER-C LABORATORY Final Result documented in this encounter Visit Diagnoses Diagnosis long term care phlebotomist use of drug Encounter for long-term (current) use of other medications documented in this encounter Care Teams Optic Fibre Drawer Relationship Specialty Start Date End Date Megan Infante MD [address] [facility] [place] [phone] PCP - General FAMILY PRACTICE 04/06/16 Piyush Pandey MD [place] Bilingual Patient Support Caseworker CARDIOVASCULAR DISEASE 04/06/16 12/28/23 Sharmila Davis, EDITORIAL DIRECTOR, COMPOUNDER-C [address] [facility] [address] [place] [phone] NURSE PRACTITIONER 01/04/17 04/03/24 Linda Block MD [address] [facility] [address] [place] [address] [place] Bilingual Patient Support Caseworker CLINICAL CARDIAC ELECTROPHYSIOLOGY 02/08/17 04/12/23 Jeff Grace MD [address] [facility] [address] [place] [address] Consulting Physician INTERNAL MEDICINE 02/20/19 6 3 documented as of this encounter
--- OUTSIDE RECORDS SUMMARY | 2024-09-03 19:14 | XMS_ITS | Encounter Summary ---
Author Organization [facility] Address [address] [place] [address]. [place] [address] [place] [address] Care Team Providers Care Cafe Or Restaurant Manager Name Role Phone Piyush Pandey MD Unavailable Unavailabl e Megan Infante MD Primary Care Provider [phone] Sharmila Davis APRN AIR DISPATCHER-C Unavailable Linda Block MD Unavailable [phone] Jeff Grace MD Unavailable Zaki Ortiz MD Unavailable [phone] Reason for Visit * Auth/Cert Specialty Diagnoses / Procedures Referred By Yung sequeira Referred To Contact Diagnoses Dolan's esophagus, dysphagia Procedures EGD WITH DILAT STRICTURE Referral ID Status Reason Start Date Expiration Date Visits Re quested Visits Authorized [id number] 1 1 Encounter Details Date Type Department Care Team (Late st Contact Info) Description 03/05/2020 10:03 AM CDT - 03/05/2020 1:20 PM T Hospital Encounter [facility] [place] [address] [address] Gloria Navarro MD [address] [place] [address] Discharge Disposition: Home or Self Care [...] have Coronavirus / COVID-19? No / Unsure 03/05/2020 10:03 AM CDT documented as of this encounter Last Filed Vital Signs Vital Sign Reading Time Taken Comments Blood Pressure 140/71 03/05/2020 1:15 PM CDT Pulse 69 03/05/2020 1:15 PM CDT Temperature 36.1 ??C (97 ??F) 03/05/2020 1:15 PM CDT Respiratory Rate 20 03/05/2020 1:15 PM CDT Oxygen Saturation 100% 03/05/2020 1:15 PM CDT Inhaled Oxygen Concentration - - Weight 97.5 kg (215 lb) 02/27/2020 2:47 PM CDT Height 170.2 cm (5' 7 ) 02/27/2020 2:47 PM CDT Body Mass Index 33.67 02/27/2020 2:47 PM CDT documented in this encounter Discharge Instructions * Attachments The following attachments cannot be sent through Care Everywhere. * Dolan's Esophagus Discharge Instructions (Ghanaian) * Gastritis Discharge Instructions (Ghanaian) * Ulcer and Gastritis Diet (Ghanaian) * Upper GI Endoscopy Discharge Instructions (Ghanaian) * Monitored Anesthesia Care (Ghanaian) documented in this encounter Medications at Time [...] total) by mouth nightly at bedtime. 12/31/2016 benzonatate 100 MG capsule Take 100 mg by mouth 2 (two) times daily as needed. 0 10/08/2018 0 carvedilol 12.5 MG tablet Take 12.5 mg [...] lungs daily. 3 furosemide 40 MG tablet Take a total of 80mg (2 tablets) by mouth in the AM and a total of 80mg (2 tablets) by mouth in the PM 30 tablet 06/12/2019 1 gabapentin 100 MG capsule 2 capsules in [...] 6 (six) hours as needed. 02/06/2020 2 ivermectin 3 MG Tab tablet Take 3 mg by mouth once. 02/28/2020 1 losartan 50 MG tablet Take 1 tablet (50 mg total) by mouth daily. 12/02/2018 3 magnesium oxide 400 (241.3 MG) MG tablet Take 400 mg by mouth daily. 11/22/2016 2 metFORMIN 500 MG tablet Take 1 tablet [...] Take 40 mEq by mouth daily. 2 prazosin 1 MG capsule Take 1 mg by mouth nightly at bedtime. 02/22/2019 1 predniSONE 20 MG tablet 07/13/2019 0 sertraline 100 MG tablet Take 150 mg by mouth daily. 12/02/2018 2 sertraline 50 MG tablet 01/25/2020 0 sildenafil 20 MG tablet Take 40 mg by mouth as needed. 0 SPIRONOLACTONE 25 MG tablet TAKE 1 TABLET BY MOUTH EVERY MORNING 90 tablet 3 10/24/2018 2 tizanidine 2 MG tablet Take 2 mg by mouth every 8 (eight) hours as needed. 11/09/2016 0 trazodone 100 MG tablet Take 200 mg by mouth nightly at bedtime. at bedtime 3 03/16/2016 2 triamcinolone 0.5 % cream Apply topically 2 (two) times daily. 04/19/2018 2 warfarin 1 MG tablet As directed 2 documented as of this encounter Plan of Treatment Upcoming Encounters Date Type Department Care Team (Late st Contact Info) Description 09/25/2024 2:00 PM MUSIC AUTOGRAPHER Appointment [facility] [address] [place] [address] Zayra Powell, SITE SUPERVISOR [address] [place] [address] 10/16/2024 3:30 PM MUSIC AUTOGRAPHER Office Visit [facility] [address] [place] [phone] Brit Gonzáles MD [address] [place] [address] documented as of this encounter Procedures Procedure Name Priority Date/Time Associated Diagnosis Comments ENDOSCOPY (SCAN ORDER) 03/05/2020 12:29 PM CDT H PYLORI UREASE Routine 03/05/2020 12:24 PM CDT EGD WITH DILAT STRICTURE 03/05/2020 12:14 PM CDT Dolan's esophagus, dysphagia PATHOLOGY Routine 03/05/2020 12:00 AM CDT documented in this encounter Results * ENDOSCOPY (03/05/2020 12:29 PM CDT) us Gloria Navarro MD SCANNING Final Result * H PYLORI UREASE (03/05/2020 12:24 PM CDT) SPEC DESCRIPTION GASTRIC BIOPSY 03/05/2020 12:35 PM CDT [facility] SPECIAL REQUESTS NO SPECIAL REQUEST 03/05/2020 12:35 PM CDT [facility] DIRECT EXAM PRESUMPTIVE NEGATIVE FOR H. PYLORI 03/05/2020 4:55 PM CDT [facility] Tissue specimen (specimen) GASTRIC BIOPSY SPECIMEN / Unknown 03/05/2020 12:24 PM CDT us Gloria Navarro MD MICROBIOLOGY - GENERAL ORDERA BLES Final Result [facility] [address] [place] [address], * Pathology (03/05/2020 12:00 AM CDT) PATHOLOGY [facility] ? Department of Laboratory Medicine ?[address] ?[place] [address] ? , extension [phone] ? Pathology Report ? Surgical Pathology Report Name: OBIE SIMS ?Specimen #: [id number] Age: 12 1955 (Age: 64) ? [facility] ?Procedure Date: 03/05/2020 Hospital #: [id number] ?Date Received: 03/06/2020 Date Reported: 03/07/2020 Provider: GLORIA NAVARRO MD Source: A: Antrum, biopsy B: Short segment Dolan's esophagus, biopsy Clinical History: Dolan's esophagus and dysphagia. Gross Description: Received in two parts: A) Received in formalin, labeled with a patient label and as antrum biopsy is a 0.2 cm piece of white-bonilla tissue. ??The specimen is entirely submitted in cassette A1. B) Received in formalin, labeled with a patient label and as short segment Dolan's esophagus biopsy are two pieces of white-bonilla tissue each 0.2 cm. ??The specimen is entirely submitted in cassette B1. FINAL DIAGNOSIS: A) STOMACH, ANTRUM, BIOPSY: ? - REACTIVE GASTROPATHY. ??MUCOSA SHOWS REACTIVE FOVEOLAR HYPERPLASIA, NEGLIGIBLE ? INFLAMMATION, AND NO HELICOBACTER PYLORI. THESE CHANGES SUGGEST CHEMICAL-TYPE ? INJURY SUCH CAN BE SEEN WITH NONSTEROIDAL ANTI-INFLAMMATORY DRUGS AND BILE ? REFLUX. B) ESOPHAGUS, SHORT SEGMENT DOLAN'S, BIOPSY: ? - FRAGMENTS OF GASTROESOPHAGEAL JUNCTION-TYPE MUCOSA WITH MINIMAL NONSPECIFIC ? CHRONIC INFLAMMATION. ? - NO INTESTINAL METAPLASIA IDENTIFIED. Electronically Signed Out ? Michael Shetty M.D. [facility] Tissue specimen (specimen) STOMACH STRUCTURE / Unknown 03/05/2020 12:24 PM CDT Tissue specimen (specimen) ESOPHAGEAL STRUCTURE / Unknown 03/05/2020 12:26 PM CDT Gloria Navarro MD PATHOLOGY/CYTOLOGY ORDERABLES Final Result [facility] [address] [place] [address], [id number] documented in this encounter Visit Diagnoses Not on filedocumented in this encounter Administered Medications Inactive Administered Medications - up to 3 most recent administrations Medication Order MAR Action Action Date Dose Rate Site lactated ringers infusion at 10 mL/hr, Intravenous, Continuous, Starting on Wed03/05/20 at 1030, Until Wed03/05/20 at 1522, Infuse at TKO rate, Pre-Op New Bag 03/05/2020 10:19 AM CDT 10 mL/hr metoclopramide (REGLAN) injection 10 mg 10 mg, Intravenous, Once as needed, Nausea, Vomiting, 1 dose, Starting on Wed03/05/20 at 1243, Until Wed03/05/20 at 1522, Administer slowly over 3-4 minutes. Do not administer to bowel surgery patients. If more than one antiemetic is ordered, use in this order: ondansetron, diphenhydramine, metoclopramide, haloperidol, promethazine. If nausea / vomiting still not controlled, move to next ordered medication., PACU ondansetron (ZOFRAN) injection 4 mg 4 mg, Intravenous, Once as needed, Nausea, Vomiting, 1 dose, Starting on 03/05/20 at 1243, Until 03/05/20 at 1522, Administer slowly over 3-4 minutes. If more than one antiemetic is ordered, use in this order: ondansetron, diphenhydramine, metoclopramide, haloperidol, promethazine. If nausea / vomiting still not controlled, move to next ordered medication., PACU documented in this encounter Active and Recently Administered Medications Times are shown in CDT. Continuous Medication Order 03/03/2020 03/04/2020 03/05/2020 lactated ringers infusion at 10 mL/hr, Intravenous, Continuous, Starting on 03/05/20 at 1030, Until 03/05/20 at 1522, Infuse at TKO rate, Pre-Op 1019 (New Bag - Prov ider: Bita Link RN)1233 (Anesthesia Volume Adjustment - Provider: Nicko Dolan CRNA)1241 (Anesthesia Volume Adjustment - Provider: Nicko Dolan CRNA)1315 (Infusion Stop Time - Provider: Mayda Metcalf RN) PRN Medication Order 03/03/2020 03/04/2020 03/05/2020 metoclopramide (REGLAN) injection 10 mg 10 mg, Intravenous, Once as needed, Nausea, Vomiting, 1 dose, Starting on 03/05/20 at 1243, Until 03/05/20 at 1522, Administer slowly over 3-4 minutes. Do not administer to bowel surgery patients. If more than one antiemetic is ordered, use in this order: ondansetron, diphenhydramine, metoclopramide, haloperidol, promethazine. If nausea / vomiting still not controlled, move to next ordered medication., PACU ondansetron (ZOFRAN) injection 4 mg 4 mg, Intravenous, Once as needed, Nausea, Vomiting, 1 dose, Starting on 03/05/20 at 1243, Until 03/05/20 at 1522, Administer slowly over 3-4 minutes. If more than one antiemetic is ordered, use in this order: ondansetron, diphenhydramine, metoclopramide, haloperidol, promethazine. If nausea / vomiting still not controlled, move to next ordered medication., PACU documented in this encounter Care Teams Cafe Or Restaurant Manager Relationship Specialty Start Date End Date Megan Infante MD [address] [place] [address] PCP - General FAMILY PRACTICE 04/06/16 Piyush Pandey MD [place] Chain Repairer CARDIOVASCULAR DISEASE 04/06/16 12/28/23 Sharmila Davis APRN, AIR DISPATCHER-C [address] [phone] NURSE PRACTITIONER 01/04/17 04/03/24 Linda Block MD [address] [phone] [place] Chain Repairer CLINICAL CARDIAC ELECTROPHYSIOLOGY 02/08/17 04/12/23 Jeff Grace MD [address] [phone] Consulting Physician INTERNAL MEDICINE 02/20/19 3 Zaki Ortiz MD [address] [phone] Consulting Physician PULMONARY DISEASE 07/12/19 documented as of this encounter
--- OUTSIDE RECORDS SUMMARY | 2024-09-03 19:14 | XMS_ITS | Encounter Summary ---
Author Organization [facility] Address [address] [place] [address]. [place] [address] [place] [address] Care Team Providers Care Link Trainer Operator Name Role Phone Piyush Pandey MD Unavailable Unavailabl e Megan Infante MD Primary Care Provider [phone] Sharmila Davis APRN, ARTIST BLACKSMITH-C Unavailable Linda Block MD Unavailable [phone] Jeff Grace MD Unavailable Zaki Ortiz MD Unavailable [phone] Encounter Details Date Type Department Care Team (Latest Contact Info) Description 09/06/2019 1:15 PM SHAREPOINT ARCHITECT - 09/06/2019 11:59 PM SHAREPOINT ARCHITECT Hospital Encounter [facility] [address] [facility] [place] [address] Hillary Saleh MD [address] [place] [address] Discharge Disposition: Home or Self Care (Routine [...] on file documented as of this encounter Medications at [...] 6 (six) hours as needed. 12/09/2016 2 latanoprost 0.005 % ophthalmic solution INSTILL 1 DROP INTO BOTH EYES AT BEDTIME 3 01/11/2017 0 losartan 50 MG tablet Take 1 tablet (50 mg total) by mouth daily. 12/02/2018 3 magnesium oxide 400 (241.3 MG) MG tablet Take 400 mg by mouth daily. 11/22/2016 2 metFORMIN 500 MG tablet Take 1 tablet (500 mg total) by mouth 2 (two) times daily with meals. 3 mometasone-formo terol 200-5 MCG/ACT Aerosol Inhale into the lungs 2 (two) times daily. 1 Nebulizer Misc by Does not apply route 2 (two) times a day. 0 pantoprazole EC 40 MG tablet Take 40 mg by mouth daily. 0 potassium chloride CR 20 MEQ tablet Take 40 mEq by mouth daily. 2 prazosin 1 MG capsule Take 1 mg by mouth nightly at bedtime. 02/22/2019 1 predniSONE 20 MG tablet 07/13/2019 0 sertraline 100 MG tablet Take 150 mg by mouth daily. 12/02/2018 2 sildenafil 20 MG tablet Take 40 mg [...] As directed 2 warfarin 10 MG tablet 10 mg. Take 0.5 tablet along with 2.5 tablets of 1 mg to = 7.5 mg 0 documented as of this encounter Plan of Treatment Upcoming Encounters Date Type Department Care Team (Late st Contact Info) Description 09/25/2024 2:00 PM SHAREPOINT ARCHITECT Appointment [facility] [address] [place] [address] Zayra Powell, MACHINE MARKER [address] [place] [address] 10/16/2024 3:30 PM SHAREPOINT ARCHITECT Office Visit [facility] [address] [place] [phone] Brit Gonzáles MD [address] [place] [address] documented as of this encounter Procedures Procedure Name Priority Date/Time Associated Diagnosis Comments FUNGAL ANTIBODY PANEL 3 Routine 09/06/2019 1:30 PM SHAREPOINT ARCHITECT Ground glass opacity present on imaging of lung TBGOLD-TUBERCULOSIS TST CELL MEDIATED IMMUNITY Routine 09/06/2019 1:30 PM SHAREPOINT ARCHITECT Ground glass opacity present on imaging of lung documented in this encounter Results * TBGOLD-TUBERCULOSIS TST CELL MEDIATED IMMUNITY (09/06/2019 1:30 PM SHAREPOINT ARCHITECT) TB INTERPRETATION NEGATIVE 020 1:12 PM SHAREPOINT ARCHITECT [facility] Comment:NEGATIVE: No immune response to Mycobacterium tuberculosis noted. TB1 AG MINUS NIL 0.02 IU/ML 09/08/19 20 1:12 PM SHAREPOINT ARCHITECT [facility] TB2 AG MINUS NIL 0.01 IU/ML 09/08/19 20 1:12 PM SHAREPOINT ARCHITECT [facility] Comment: This test was automated and its characteristics determined by the [facility]. Automated versions of this test have not been cleared or approved by the FDA. This laboratory is regulated under CLIA as qualified to perform high complexity testing. This test is used for clinical purposes. It should not be regarded as investigational or for research. 09/06/2019 1:30 PM SHAREPOINT ARCHITECT Hillary Saleh MD LABORATORY Final Result Performing Organization Address [facility] Co de Phone Number [facility] [address] [place] [address], [phone] * FUNGAL ANTIBODY PANEL 3 (09/06/2019 1:30 PM SHAREPOINT ARCHITECT) HISTOPLASMA AB NEGATIVE NEGATIVE 09/11/2019 10:30 AM SHAREPOINT ARCHITECT [facility] BLASTOMYCES AB NEGATIVE NEGATIVE 09/12/2019 2:10 PM SHAREPOINT ARCHITECT [facility] COCCIDIOIDES AB NEGATIVE NEGATIVE 0 10:30 AM SHAREPOINT ARCHITECT [facility] ASPERGILLUS ANTIBODY NEGATIVE NEGATIVE 09/14/2019 11:31 AM SHAREPOINT ARCHITECT [facility] CRYPTOCOCCAL AG (CSF) NEGATIVE NEGATIVE 09/07/2019 1:51 PM SHAREPOINT ARCHITECT [facility] 09/06/2019 1:30 PM SHAREPOINT ARCHITECT Hillary Saleh MD LABORATORY Final Result Performing Organization Address [facility] Co de Phone Number [facility] [address] [place] [address], [phone] documented in this encounter Visit Diagnoses Diagnosis Ground glass opacity present on imaging of lung documented in this encounter Care Teams Link Trainer Operator Relationship Specialty Start Date End Date Megan Infante MD [address] [facility] [place] [phone] PCP - General FAMILY PRACTICE 04/06/16 Piyush Pandey MD [place] [employer] Instructor CARDIOVASCULAR DISEASE 04/06/16 12/28/23 Sharmila Davis APRN, ARTIST BLACKSMITH-C [address] [facility] [address] [place] [address] NURSE PRACTITIONER 01/04/17 04/03/24 Linda Block MD [address] [place] [phone] [place] [employer] Instructor CLINICAL CARDIAC ELECTROPHYSIOLOGY 02/08/17 04/12/23 Jeff Grace MD [address] [place] [address] Consulting Physician INTERNAL MEDICINE 02/20/19 3 Zaki Ortiz MD [address] [place] [address] Consulting Physician PULMONARY DISEASE 07/12/19 documented as of this encounter
--- OUTSIDE RECORDS SUMMARY | 2024-09-03 19:14 | XMS_ITS | Encounter Summary ---
Author Organization [facility] Address [facility] 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 Chronic atrial fibrillation ([facility]/HCC HHS/HCC) S/P aortic valve replacement with bioprosthetic valve Aortic stenosis Shortness of breath Procedures XA RHC+LHC POSS Piyush Panedy MD [facility] [address] [place] [address] Phone: tel: fax: Referral ID Status Reason Start Date Expiration Date Visits Re quested Visits Authorized [id number] Closed 08/27/2020 09/27/2021 1 1 UTER HARDWARE DESIGNER Reason for Visit * Reason Onset Date Comments Schedule Procedure 08/27/2020 R/LHC Encounter Details Date Type Department Care Team (Late st Contact Info) Description 08/27/2020 Telephone [facility] ield [address] [place] [phone] Piyush Pandey MD Schedule Procedure (R/LHC) Social History Tobacco Use Types Packs/Day Years [...] on file documented as of this encounter Progress Notes * Megan Lay RN - 08/27/2020 4:13 PM CST R/LHC scheduled for 09/10 at 9:30am. Pt aware of date/time and instructions. Lovenox bridging discussed with Dr. Pandey. Pt to stop warfarin 4 days prior to cath. Start lovenox 60 mg every 12 hours day prior to cath. Letter mailed. UTER HARDWARE DESIGNER documented in this encounter Plan of Treatment Upcoming Encounters Date Type Department Care Team (Late st Contact Info) Description 09/25/2024 2:00 PM COMPUTER HARDWARE DESIGNER Appointment [facility] [address] [place] [address] Zayra Powell, [employer] [address] [place] [address] 10/16/2024 3:30 PM COMPUTER HARDWARE DESIGNER Office Visit [facility] [address] [address] Brit Gonzáles MD [address] [place] [address] documented as of this encounter Results * XA RHC+LHC POSS (09/10/2020 10:19 AM COMPUTER HARDWARE DESIGNER) Anatomical Region Laterality Modality Cardiac Front Worker 09/10/2020 9:30 AM COMPUTER HARDWARE DESIGNER us Piyush Pandey MD PRINT CUTTER Final Resul t * (ABNORMAL) PROTIME/INR, VENOUS (09/07/2020 8:45 AM COMPUTER HARDWARE DESIGNER) PROTIME 25.2(H) 9.4 - 12.5 SEC 09/07/2020 9:03 AM COMPUTER HARDWARE DESIGNER [facility] INR 2.3(H) 0.9 - 1.1 09/07/2020 9:03 AM COMPUTER HARDWARE DESIGNER [facility] 09/07/2020 8:45 AM COMPUTER HARDWARE DESIGNER us Piyush Pandey MD LABORATORY Final Resul t Performing Organization Address [facility] de Phone Number [facility] [address] [place] [address], * MAGNESIUM (09/07/2020 8:45 AM COMPUTER HARDWARE DESIGNER) MAGNESIUM 2.2 1.8 - 2.4 MG/DL 09/07/2020 9:06 AM COMPUTER HARDWARE DESIGNER [facility] 09/07/2020 8:45 AM COMPUTER HARDWARE DESIGNER Piyush Pandey MD LABORATORY Final Resul t Performing Organization Address [facility] de Phone Number [facility] [address] [place] [address], * (ABNORMAL) CBC W/DIFF AUTOMATED (09/07/2020 8:45 AM COMPUTER HARDWARE DESIGNER) WBC 9.0 4.5 - 10.8 x10'3/uL 09/07/2020 8:56 AM COMPUTER HARDWARE DESIGNER [facility] RBC 4.15(L) 4.50 - 6.10 x10'6/uL 09/07/2020 8:56 AM COMPUTER HARDWARE DESIGNER [facility] HGB 11.5(L) 13.0 - 18.0 G/DL 09/07/2020 8:56 AM [facility] HCT 36.9(L) 37.0 - 52.0 % 09/07/2020 8:56 AM [facility] MCV 88.9 78.0 - 100.0 FL 09/07/2020 8:56 AM [facility] MCH 27.7 27.0 - 31.0 PG 09/07/2020 8:56 AM [facility] MCHC 31.2(L) 33.0 - 36.0 G/DL 09/07/2020 8:56 AM [facility] RDW 14.5 11.5 - 14.5 % 09/07/2020 8:56 AM [facility] PLT 188 150 - 350 x10'3/uL 09/07/2020 8:56 AM [facility] MPV 10.9(H) 7.4 - 10.4 FL 09/07/2020 8:56 AM [facility] DIFFERENTIAL COMMENT NORMAL REFERENCE RANGE NOT ESTABLISHED FOR THE PROPORTIONAL LEUKOCYTE DIFFERENTIAL. 09/07/2020 8:56 AM [facility] SEG NEUTROPHILS 71.8 % 8:56 AM [facility] LYMPHOCYTES 13.3 % 09/07/2020 8:56 AM [facility] MONOCYTES 9.5 % 09/07/2020 8:56 AM [facility] EOSINOPHILS 4.8 % 09/07/2020 8:56 AM [facility] BASOPHILS 0.4 % 09/07/2020 8:56 AM [facility] IMMATURE GRANS % 0.2 % 09/07/19 8:56 AM [facility] NRBC 0.0 % 09/07/2020 8:56 AM [facility] ABS. NEUTROPHILS 6.49 1.60 - 8.30 x10'3/uL 09/07/2020 8:56 AM [facility] ABS. LYMPHOCYTES 1.20 0.80 - 4.70 x10'3/uL 09/07/2020 8:56 AM COMPUTER HARDWARE DESIGNER [facility] ABS. MONOCYTES 0.86 0.00 - 1.50 x10'3/uL 09/07/2020 8:56 AM COMPUTER HARDWARE DESIGNER [facility] ABS. EOSINOPHILS 0.43(H) 0.00 - 0.40 x10'3/uL 09/07/2020 8:56 AM COMPUTER HARDWARE DESIGNER [facility] ABS. BASOPHILS 0.04 0.00 - 0.20 x10'3/uL 09/07/2020 8:56 AM COMPUTER HARDWARE DESIGNER [facility] ABS. IMMATURE GRANULOCYTES 0.02 0.00 - 0.03 x10'3/uL 09/07/2020 8:56 AM COMPUTER HARDWARE DESIGNER [facility] ABS. NUCLEATED RBC'S 0.00 0.00 x10'3/uL 09/07/2020 8:56 AM [facility] 09/07/2020 8:45 AM COMPUTER HARDWARE DESIGNER us Piyush Pandey MD LABORATORY Final Resul t [facility] [address] [place] [address], * (ABNORMAL) BASIC METABOLIC PANEL (09/07/2020 8:45 AM COMPUTER HARDWARE DESIGNER) SODIUM S/P/B 136 136 - 145 MMOL/L 09/07/2020 9:06 AM [facility] POTASSIUM S/P/B 4.8 3.5 - 5.1 MMOL/L 09/07/2020 9:06 AM [facility] CHLORIDE S/P/B 103 98 - 107 MMOL/L 09/07/2020 9:06 AM [facility] CO2 28.1 21.0 - 32.0 MMOL/L 09/07/2020 9:06 AM [facility] GLUCOSE 156(H) 70 - 99 MG/DL 09/07/2020 9:06 AM [facility] Comment: FASTING GLUCOSE 100 TO 125 MG/DL IS CONSISTENT WITH IMPAIRED FASTING GLUCOSE. FASTING GLUCOSE >125 MG/DL IS CONSISTENT WITH DIABETES. RANDOM GLUCOSE >200 MG/DL WITH HYPERGLYCEMIC SYMPTOMS IS CONSISTENT WITH DIABETES. PER ADA GUIDELINES BUN 20 6 - 24 MG/DL 09/07/2020 9:06 AM [facility] CREATININE S/P/B 1.38(H) 0.70 - 1.30 MG/DL 09/07/2020 9:06 AM [facility] CALCIUM S/P/B 9.3 8.4 - 10.5 MG/DL 09/07/2020 9:06 AM [facility] ANION GAP 4.9(L) 5.0 - 15.0 MMOL/L 09/07/2020 9:06 AM [facility] OSMOLALITY (CALC) 288 MOSM/KG 021 9:06 AM [facility] Comment:REFERENCE RANGE NOT ESTABLISHED EGFR NON-AFR. AMER. 53(L) >89 ML/MIN/1. 73 M2 09/07/2020 9:06 AM [facility] EGFR AFR. AMER. 61(L) >89 ML/MIN/1. 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- Primary Chronic atrial fibrillation ([facility]/HCC HHS/HCC) Atrial fibrillation S/P aortic valve replacement with bioprosthetic valve Heart valve replaced by other means Aortic stenosis Aortic valve disorders Shortness of breath documented in this encounter Care Teams Squeegee Finisher Relationship Specialty Start Date End Date Megan Infante MD [address] [facility] [place] [phone] PCP - General FAMILY PRACTICE 04/06/16 Piyush Pandey MD [place] Structural Design Engineer CARDIOVASCULAR DISEASE 04/06/16 12/28/23 Sharmila Davis APRN, RN OR LPN-C [address] [address] NURSE PRACTITIONER 01/04/17 04/03/24 Linda Block MD [address] [phone] [place] Structural Design Engineer CLINICAL CARDIAC ELECTROPHYSIOLOGY 02/08/17 04/12/23 Jeff Grace MD [address] [facility] [address] [place] [address] Consulting Physician INTERNAL MEDICINE 02/20/19 3 Zaki Ortiz MD [address] [facility] [address] [phone] Consulting Physician PULMONARY DISEASE 07/12/19 documented as of this encounter
--- OUTSIDE RECORDS SUMMARY | 2024-09-03 19:14 | XMS_ITS | Encounter Summary ---
Author Organization [facility] Address [address] [place] [address]. [place] [address] [place] [address] Care Team Providers Care Ux Consultant Name Role Phone Piyush Pandey MD Unavailable Unavailabl e Megan Infante MD Primary Care Provider [phone] Sharmila Davis APRN TARIFF CLERK-C Unavailable Linda Block MD Unavailable [phone] Jeff Grace MD Unavailable Zaki Ortiz MD Unavailable [phone] Reason for Visit * Reason Onset Date Comments Other 08/27/2020 is cath schedule d yet? Encounter Details Date Type Department Care Team (Late st Contact Info) Description 08/27/2020 Telephone [facility] [address] [place] [address] Piyush Pandey MD Other (is cath scheduled yet?) Social History Tobacco Use Types Packs/Day Years [...] Notes * Megan Lay RN - 08/27/2020 4:41 PM CST Rescheduled. See other encounter. CHDOWNS TOE FORMER * Bethanie Lay - 08/27/2020 3:[address] Infante's office called inquiring if cath had been rescheduled yet? Informed that the nurse has not reached him yet for some dates that will work for him. CHDOWNS TOE FORMER documented in this encounter Plan of Treatment Upcoming Encounters Date Type Department Care Team (Late st Contact Info) Description 09/25/2024 2:00 PM STITCHDOWNS TOE FORMER Appointment [facility] [address] [place] [address] Zayra Powell, DIE DESIGNER APPRENTICE [address] [facility] [address] 10/16/2024 3:30 PM STITCHDOWNS TOE FORMER Office Visit [facility] [address] [facility] [place] [phone] Brit Gonzáles MD [address] [place] [address] documented as of this encounter Visit Diagnoses Not on filedocumented in this encounter Care Teams Ux Consultant Relationship Specialty Start Date End Date Megan Infante MD [address] [place] [address] PCP - General FAMILY PRACTICE 04/06/16 Piyush Pandey MD [place] [facility]al Health Worker CARDIOVASCULAR DISEASE 04/06/16 12/28/23 Sharmila Davis APRN, TARIFF CLERK-C [address] [place] [address] [address] [place] [address] NURSE PRACTITIONER 01/04/17 04/03/24 Linda Block MD [address] [place] [address] [place] Behavioral Health Worker CLINICAL CARDIAC ELECTROPHYSIOLOGY 02/08/17 04/12/23 Jeff Grace MD [address] [facility] [address] [place] [address] Consulting Physician INTERNAL MEDICINE 02/20/19 3 Zaki Ortiz MD [address] [place] [address] Consulting Physician PULMONARY DISEASE 07/12/19 documented as of this encounter
--- OUTSIDE RECORDS SUMMARY | 2024-09-03 19:14 | XMS_ITS | Encounter Summary ---
Author Organization [facility] Address [address] [place] [address]. [place] [address] [place] [address] Care Team Providers Care Poly Operator Name Role Phone Piyush Pandey MD Unavailable Unavailabl e Megan Infante MD Primary Care Provider [phone] Sharmila Davis APRN, NP-C Unavailable [phone] Linda Block MD Unavailable [phone] Jeff Grace MD Unavailable Zaki Ortiz MD Unavailable [phone] Reason for Visit * Reason Comments Follow Up Encounter Details Date Type Department Care Team (Late st Contact Info) Description 08/02/2020 9:30 AM BEAM DOFFER [facility]ult [facility] [address] [place] [phone] Piyush Pandey MD Follow Up Social History [...] have Coronavirus / COVID-19? No / Unsure 07/03/2020 8:36 AM BEAM DOFFER documented as of this encounter Patient Instructions * Patient Instructions* Megan Lay RN - 08/02/2020 9:30 AM BEAM DOFFER 1. R/L heart cath in 6 weeks with Lovenox bridge DOFFER documented in this encounter Progress Notes * Piyush Pandey MD - 08/02/2020 9:30 AM CST Reason for Visit: Follow Up History of Present Illness: Recommendations and Plan: Medications: Current Outpatient Medications: ??? albuterol sulfate HFA (PROAIR HFA) 108 (90 BASE) MCG/ACT inhaler, ProAir HFA (albuterol sulfate) HFA aerosol inhaler 90 mcg/actuation; 2 puffs as needed for coughing or wheezing; 0; 14-Nov-2015; Active, Disp: , Rfl: ??? allopurinol 300 MG [...] Nare route daily., Disp: , Rfl: ??? Hdksyqdfvsw-Uumvcrsqq-Jeyzwb 100-62.5-25 MCG/INH AEROSOL POWDER, BREATH ACTIVATED, Inhale into the lungs daily., Disp: , Rfl: ??? furosemide 40 MG tablet, Take a total of 80mg (2 tablets) by mouth in the AM and a total of 80mg (2 tablets) by mouth in the PM, Disp: 30 tablet, Rfl: 0 ??? gabapentin [...] , Rfl: ??? hydrOXYzine 50 MG tablet, , Disp: , Rfl: ??? ivermectin 3 MG Tab tablet, , Disp: , Rfl: ??? losartan [...] daily with meals., Disp: , Rfl: ??? mometasone-formoterol 200-5 MCG/ACT Aerosol, Inhale into the lungs 2 (two) times daily., Disp: , Rfl: ??? nystatin cream, , Disp: , Rfl: ??? pantoprazole EC 40 MG tablet, Take 1 tablet (40 mg total) by mouth 2 (two) times daily., Disp: 60 tablet, Rfl: 3 ??? potassium chloride CR 20 MEQ tablet, Take 40 mEq by mouth daily. , Disp: , Rfl: ??? prazosin 1 MG capsule, Take 1 mg by mouth nightly at bedtime. , Disp: , Rfl: ??? sertraline 100 MG tablet, Take 150 mg by mouth daily. , Disp: , Rfl: ??? SPIRONOLACTONE 25 MG tablet, TAKE 1 TABLET BY MOUTH EVERY MORNING (Patient taking differently: Take 25 mg by mouth daily with breakfast. ), Disp: 90 tablet, Rfl: 3 ??? [...] ??? PAD (peripheral artery disease) (CMS/HCC) ??? Restless leg syndrome ??? S/P aortic [...] snoring. Cardiovascular: See HPI. Positive for chest pain. Gastrointestinal: Negative for blood in stool and melena. Genitourinary: Negative for dysuria. Musculoskeletal: Negative for myalgias and new or worsening joint stiffness/pain. Skin: Negative for rash. Neurological: Negative for tingling/numbness and focal weakness. Endo/Heme/Allergies: Negative for new or significant bruising/bleeding and polydipsia. Psychiatric/Behavioral: Negative for depression and new or significant memory loss. All other systems reviewed and are negative. There were no vitals filed for this visit. There is no height or weight on file to calculate BMI. Cardiac Exam Physical Exam Constitutional: HENT: Eyes: Neck: Abdomen: Pulmonary: Skin: Musculoskeletal: Neurological: Comments: No physical exam due to telephone visit. I introduced and identified myself, received verbal consent from the patient to proceed with this video visit and made the patient aware that the same confidentiality and nursing information systems coordinator practices apply. The patient joined the video visit from Home. I completed the virtual visit from Office. The following clinical staff helped with this visit Nurse: Megan Lay. Total Time Spent in Minutes: 11([id number]) Diagnoses/Impression: No diagnosis found. Referring Provider: No ref. provider found PCP: MEGAN INFANTE MD DOFFER documented in this encounter Plan of Treatment Upcoming Encounters Date Type Department Care Team (Late st Contact Info) Description 09/25/2024 2:00 PM BEAM DOFFER Appointment [facility] [address] [place] [address] Zayra Powell, COMPUTER PROGRAMMING PROFESSOR [address] [place] [address] 10/16/2024 3:30 PM BEAM DOFFER Office [facility] [place] [phone] Brit Gonzáles MD [address] [place] [address] documented as of this encounter Visit Diagnoses Diagnosis TIA (transient ischemic attack)- Primary Unspecified transient cerebral ischemia Shortness of breath S/P aortic valve replacement with bioprosthetic valve Heart valve replaced by other means Coronary artery disease involving [place] coronary artery of [place] heart without angina pectoris Chronic atrial fibrillation ([facility]) Atrial fibrillation Essential hypertension Unspecified essential hypertension Mixed hyperlipidemia Chronic obstructive pulmonary disease, unspecified COPD type ([facility]) documented in this encounter Additional Health Concerns Infection Onset Date Last Indicated Resolved Time COVID-19 Rule Out 09/07/2020 09/07/2020 09/08/2020 5:52 PM BEAM DOFFER documented as of this encounter Care Teams Poly Operator Relationship Specialty Start Date End Date Megan Infante MD [address] [facility] [place] [phone] PCP - General FAMILY PRACTICE 04/06/16 Piyush Pandey MD [place] Asp Web Developer CARDIOVASCULAR DISEASE 04/06/16 12/28/23 Sharmila Davis, DANNY, EDUCATION CONSULTANT-C [address] [facility] [address] [place] [address] NURSE PRACTITIONER 01/04/17 04/03/24 Linda Block MD [address] [facility] [address] [place] [address] [place] Web Developer CLINICAL CARDIAC ELECTROPHYSIOLOGY 02/08/17 04/12/23 Jeff Grace MD [address] [facility] [address] [place] [address] Consulting Physician INTERNAL MEDICINE 02/20/19 3 Zaki Ortiz MD [address] [facility] [address] [place] [address] Consulting Physician PULMONARY DISEASE 07/12/19 documented as of this encounter
--- OUTSIDE RECORDS SUMMARY | 2024-09-03 19:14 | XMS_ITS | Encounter Summary ---
Author Organization [facility] Address [facility] [facility] [place] [address] [place] [address] Care Team Providers Care Lpn Name Role Phone Piyush Pandey MD Unavailable Unavailabl e Megan Infante MD Primary Care Provider [phone] Sharmila Davis APRN, ECONOMIST RESEARCH ASSISTANT-C Unavailable [phone] Linda Block MD Unavailable [phone] Jeff Grace MD Unavailable Zaki Ortiz MD Unavailable [phone] Encounter Details Date Type Department Care Team (Latest Contact Info) Description 03/02/2020 Travel Social History Tobacco Use Types Packs/Day [...] have Coronavirus / COVID-19? No / Unsure 03/02/2020 6:34 AM CDT documented as of this encounter Plan of Treatment Upcoming Encounters Date Type Department Care Team (Late st Contact Info) Description 09/25/2024 2:00 PM RN UROLOGY Appointment [facility] [address] [place], [facility] Zayra Powell, [facility] [address] [place] [phone] 10/16/2024 3:30 PM RN UROLOGY [facility] [address] [place] [address] Brit Gonzáles MD [address] [place], [place] [phone] documented as of this encounter Visit Diagnoses Not on filedocumented in this encounter Additional Health Concerns Infection Onset Date Last Indicated Resolved Time COVID-19 Rule Out 03/02/2020 03/02/2020 03/03/2020 8:23 PM CDT documented as of this encounter Care Teams Lpn Relationship Specialty Start Date End Date Megan Infante MD [address] [place] [address] PCP - General FAMILY PRACTICE 04/06/16 Piyush Pandey MD [place] Neon Sign Installer CARDIOVASCULAR DISEASE 04/06/16 12/28/23 Sharmila Davis, DANNY, ECONOMIST RESEARCH ASSISTANT-C [address] [facility] [address] [place] [address] NURSE PRACTITIONER 01/04/17 04/03/24 Linda Block MD [address] [facility] [address] [place] [address] [place] Neon Sign Installer CLINICAL CARDIAC ELECTROPHYSIOLOGY 02/08/17 04/12/23 Jeff Grace MD [address] [facility] [address] [place] [address] Consulting Physician INTERNAL MEDICINE 02/20/19 3 Zaki Ortiz MD [address] [facility] [address] [place] [address] Consulting Physician PULMONARY DISEASE 07/12/19 documented as of this encounter
--- OUTSIDE RECORDS SUMMARY | 2024-09-03 19:14 | XMS_ITS | Encounter Summary ---
Author Organization [facility] Address [address] [place] [address]. [place] [address] [place] [address] Care Team Providers Care Motor Grader Operator Name Role Phone Piyush Pandey MD Unavailable Unavailabl e Megan Infante MD Primary Care Provider [phone] Sharmila Davis APRN SUPPLY COORDINATOR-C Unavailable [phone] Linda Block MD Unavailable [phone] Jeff Grace MD Unavailable Zaki Ortiz MD Unavailable [phone] Encounter Details Date Type Department Care Team (Late st Contact Info) Description 09/24/2020 Prep for Procedure [facility]d [address] [place] [phone] Piyush Pandey MD Social History Tobacco Use [...] have Coronavirus / COVID-19? No / Unsure 09/10/2020 7:25 AM WRAPPER STEMMER HAND documented as of this encounter Plan of Treatment Upcoming Encounters Date Type Department Care Team (Late st Contact Info) Description 09/25/2024 2:00 PM WRAPPER STEMMER HAND Appointment [facility] [address] [place] [address] Zayra Powell, ENVIRONMENTAL PROJECT MANAGER [address] [place], [place] [phone] 10/16/2024 3:30 PM WRAPPER STEMMER HAND Office Visit [facility] [address] [place] [address] Brit Gonzáles MD [address] [place], [place] [address] documented as of this encounter Visit Diagnoses Not on filedocumented in this encounter Care Teams Motor Grader Operator Relationship Specialty Start Date End Date Megan Infante MD [address] [place] [address] PCP - General FAMILY PRACTICE 04/06/16 Piyush Pandey MD [place] Raw Stock Dyeing Machine Tender CARDIOVASCULAR DISEASE 04/06/16 12/28/23 Sharmila Davis, LABOR RELATIONS SPECIALIST, SUPPLY COORDINATOR-C [address] [facility] [address] [place] [address] NURSE PRACTITIONER 01/04/17 04/03/24 Linda Block MD [address] [facility] [address] [place] [address] [place] Raw Stock Dyeing Machine Tender CLINICAL CARDIAC ELECTROPHYSIOLOGY 02/08/17 04/12/23 Jeff Grace MD [address] [facility] [address] [place] [address] Consulting Physician INTERNAL MEDICINE 02/20/19 3 Zaki Ortiz MD [address] [facility] [address] [place] [address] Consulting Physician PULMONARY DISEASE 07/12/19 documented as of this encounter
--- OUTSIDE RECORDS SUMMARY | 2024-09-03 19:14 | XMS_ITS | Encounter Summary ---
Author Organization [facility] Address [address] [place] [address]. [place] [address] [place] [address] Care Team Providers Care Irrigation Service Technician Name Role Phone Piyush Pandey MD Unavailable Unavailabl e Megan Infante MD Primary Care Provider [phone] Sharmila Davis APRN AQUACULTURE FARMER-C Unavailable Linda Block MD Unavailable [phone] Jeff Grace MD Unavailable Zaki Ortiz MD Unavailable [phone] Encounter Details Date Type Department Care Team (Latest Contact Info) Description 10/05/2020 8:08 AM DOUBLE BOTTOM DRIVER - 10/05/2020 11:59 PM DOUBLE BOTTOM DRIVER Hospital Encounter [facility] [address] [place] [address] Piyush Pandey MD Discharge Disposition: Home or Self [...] COVID-19? No / Unsure 10/05/2020 8:07 AM DOUBLE BOTTOM DRIVER documented as of this encounter Medications at [...] st Contact Info) Description 09/25/2024 2:00 PM DOUBLE BOTTOM DRIVER Appointment [facility] [address] [place] [address] Zayra Powell, MACHINE EDGE BANDER [address] [place] [address] 10/16/2024 3:30 PM DOUBLE BOTTOM DRIVER Office Visit [facility] [address] [place] [phone] Brit Gonzáles MD [address] [place], [place] [address] documented as of this encounter Procedures Procedure Name Priority Date/Time Associated Diagnosis Comments CORONAVIRUS (COVID 19) Routine 10/05/2020 8:14 AM DOUBLE BOTTOM DRIVER Pre-operative laboratory examination documented in this encounter Results * PRE-SURGICAL/PRE-PROCEDURE CORONAVIRUS (COVID 19) (10/05/2020 8:14 AM DOUBLE BOTTOM DRIVER) CORONAVIRUS SARS COV 2 PCR (RESP) NOT DETECTED NOT DETECTED 10/06/2020 11:37 AM DOUBLE BOTTOM DRIVER [facility] Comment: A Not Detected (negative) test result for this test means that SARS- CoV-2 RNA was not present in the specimen above the limit of detection. A negative result does not rule out the possibility of COVID-19 and should not be used as the sole basis for treatment or patient management decisions. ??If COVID-19 is still suspected, based on exposure history together with other clinical findings, re-testing should be considered in consultation with public health authorities. Laboratory test results should always be considered in the context of clinical observations and epidemiological data in making a final diagnosis and patient management decisions. Please review the Fact Sheets and FDA authorized labeling available for health care providers and patients using the following websites: https://www.[employer]ex[employer].com/home/Covid-19/HCP/QuestIVD/fact- sheet.html https://www.[employer].com/home/Covid-19/Patients/ Quest[employer]/fact-sheet.html This test has been authorized by the FDA under an Emergency Use Authorization (EUA) for use by authorized laboratories. Due to the current public health emergency, [facility] is receiving a high volume of samples from a wide variety of swabs and media for COVID-19 testing. In order to serve patients during this public health crisis, samples from appropriate clinical sources are being tested. Negative test results derived from specimens received in non-commercially manufactured viral collection and transport media, or in media and sample collection kits not yet authorized by FDA for COVID-19 testing should be cautiously evaluated and the patient potentially subjected to extra precautions such as additional clinical monitoring, including collection of an additional specimen. Methodology: ??Nucleic Acid Amplification Test (NAAT) includes RT-PCR or TMA Additional information about COVID-19 can be found at the [facility] website: www.[employer]/Covid19. Test performed at [facility] [place] [address] [place], [place] ??[address] Director: REEMA ORDAZ DO,MPH FIRST TEST UNKNOWN 10/05/2020 8:13 AM DOUBLE BOTTOM DRIVER [facility] EMPLOYED IN HEALTHCARE NO 10/05/2020 8:13 AM DOUBLE BOTTOM DRIVER [facility] SYMPTOMATIC DEFINED BY CDC UNKNOWN 10/05/2020 8:13 AM DOUBLE BOTTOM DRIVER [facility] DATE OF SYMPTOM ONSET UNKNOWN 10/05/2020 8:16 AM DOUBLE BOTTOM DRIVER [facility] HOSPITALIZATION STATUS NO 10/05/2020 8:13 AM DOUBLE BOTTOM DRIVER [facility] PATIENT IN ICU NO 10/05/2020 8:13 AM DOUBLE BOTTOM DRIVER [facility] RESIDENT OF [facility] NO 10/05/2020 8:13 AM DOUBLE BOTTOM DRIVER [facility] PATIENT'S RACE WHITE OR 10/05/2020 8:13 AM DOUBLE BOTTOM DRIVER [facility] ETHNICITY NONHISPANIC 10/05/2020 8:13 AM DOUBLE BOTTOM DRIVER [facility] SOURCE (QST) NASOPHARYNGEAL SWAB 10/05/2020 8:13 AM DOUBLE BOTTOM DRIVER [facility] NASOPHARYNGEAL SWAB / Unknown 10/05/2020 8:14 AM DOUBLE BOTTOM DRIVER us Piyush Pandey MD MICROBIOLOGY - GENERAL CLARISSA MCARTHUR Final Result [facility] [address] [place] [address], [facility] [id number] [place] [address], documented in this encounter Visit Diagnoses Diagnosis Pre-operative laboratory examination Pre-procedural laboratory examination documented in this encounter Additional Health Concerns Infection Onset Date Last Indicated Resolved Time COVID-19 Rule Out 10/05/2020 10/05/2020 10/06/2020 11:37 AM DOUBLE BOTTOM DRIVER documented as of this encounter Care Teams Irrigation Service Technician Relationship Specialty Start Date End Date Megan Infante MD [address] [place] [address] PCP - General FAMILY PRACTICE 04/06/16 Piyush Pandey MD [place] Book Sorter CARDIOVASCULAR DISEASE 04/06/16 12/28/23 Sharmila Davis APRN, AQUACULTURE FARMER-C [address] [facility] [address] [place] [address] NURSE PRACTITIONER 01/04/17 04/03/24 Linda Block MD [address] [facility] [address] [place] [address] [place] Book Sorter CLINICAL CARDIAC ELECTROPHYSIOLOGY 02/08/17 04/12/23 Jeff Grace MD [address] [facility] [address] [place] [address] Consulting Physician INTERNAL MEDICINE 02/20/19 3 Zaki Ortiz MD [address] [facility] [address] [place] [address] Consulting Physician PULMONARY DISEASE 07/12/19 documented as of this encounter
--- OUTSIDE RECORDS SUMMARY | 2024-09-03 19:14 | XMS_ITS | Encounter Summary ---
Author Organization [facility] Address [address] [place] [address]. [place] [address] [place] [address] Care Team Providers Care Provider Scribe Name Role Phone Piyush Pandey MD Unavailable Unavailabl e Megan Infante MD Primary Care Provider [phone] Sharmila Davis APRN, RAILROAD CARMAN-C Unavailable [phone] Linda Block MD Unavailable [phone] Jeff Grace MD Unavailable Zaki Ortiz MD Unavailable [phone] Encounter Details Date Type Department Care Team (Latest Contact Info) Description 10/05/2020 Travel Social History Tobacco Use Types Packs/Day [...] COVID-19? No / Unsure 10/05/2020 8:07 AM LOGISTICS ADMINISTRATOR documented as of this encounter Plan of Treatment Upcoming Encounters Date Type Department Care Team (Late st Contact Info) Description 09/25/2024 2:00 PM LOGISTICS ADMINISTRATOR Appointment [facility] [address] [place] [address] Zayra Powell, DUCK OPERATOR [address] [place] [address] 10/16/2024 3:30 PM LOGISTICS ADMINISTRATOR [facility] [address] [place] [phone] Brit Gonzáles MD [address] [place], [place] [id number] documented as of this encounter Visit Diagnoses Not on filedocumented in this encounter Additional Health Concerns Infection Onset Date Last Indicated Resolved Time COVID-19 Rule Out 10/05/2020 10/05/2020 10/06/2020 11:37 AM LOGISTICS ADMINISTRATOR documented as of this encounter Care Teams Provider Scribe Relationship Specialty Start Date End Date Megan Infante MD [address] [place] [address] PCP - General FAMILY PRACTICE 04/06/16 Piyush Pandey MD [place] Associate Scientist CARDIOVASCULAR DISEASE 04/06/16 12/28/23 Sharmila Davis, HEALTH OCCUPATIONS TEACHER, RAILROAD CARMAN-C [address] [facility] [address] [place] [phone] NURSE PRACTITIONER 01/04/17 04/03/24 Linda Block MD [address] [facility] [address] [place] [address] [place] Associate Scientist CLINICAL CARDIAC ELECTROPHYSIOLOGY 02/08/17 04/12/23 Jeff Grace MD [address] [facility] [address] [place] [address] Consulting Physician INTERNAL MEDICINE 02/20/19 3 Zaki Ortiz MD [address] [place] [phone] Consulting Physician PULMONARY DISEASE 07/12/19 documented as of this encounter
--- OUTSIDE RECORDS SUMMARY | 2024-09-03 19:14 | XMS_ITS | Encounter Summary ---
Author Organization [facility] Address [facility] [place] [address] [place] [address] Care Team Providers Care Drum Sealer Name Role Phone Amauri Pandey MD Unavailable Unavailabl e Megan Infante MD Primary Care Provider [phone] Sharmila Davis APRN FIRST MATE-C Unavailable Linda Block MD Unavailable [phone] Jeff Grace MD Unavailable Encounter Details Date Type Department Care Team (Late st Contact Info) Description 05/05/2019 Orders Only [facility] [address] [place] [phone] Amauri Pandey MD Social History Tobacco Use Types [...] st Contact Info) Description 09/25/2024 2:00 PM PHARMACY ANCILLARY Appointment [facility] [address] [place] [address] Zayra Powell, ELEVATOR ADJUSTER [address] [place] [address] 10/16/2024 3:30 PM PHARMACY ANCILLARY Office Visit [facility] [address] [place] [phone] Brit Gonzáles MD [address] [place] [address] documented as of this encounter Procedures Procedure Name Priority Date/Time Associated Diagnosis Comments ELECTROCARDIOGRAM (NON MIDMARK ACQUIRED) Routine 05/05/2019 11:02 AM CDT Shortness of breath documented in this encounter Results * ELECTROCARDIOGRAM (05/05/2019 11:02 AM CDT) 05/05/2019 11:0 2 AM CDT Narrative [facility] - 05/07/2019 10:36 PM CDT ? [facility] ?[address] [place], [place] ??[address] ? Test Date: ?2019-05-05 Pat Name: ? OBIE SIMS ?Department: ? Room: ? Gender: ? Male ? Presser Automatic: ?? pb : ?1955 ? Requested By: AMAURI PANDEY Order Number: [id number] ?Reading : ?? Amauri Pandey ? Measurements Intervals ?Keyes ? Rate: ? 78 ? P: ? KS: ? 0 ?QRS: ?-19 QRSD: ? 140 ?T: ?134 QT: ? 398 ? QTc: ?456 ? Interpretive Statements ATRIAL FIBRILLATION INTRAVENTRICULAR CONDUCTION DELAY CANNOT RULE OUT ANTERIOR INFARCTION, AGE UNDETERMINED ST AND T WAVE ABNORMALITY Procedure Note Amauri Pandey MD - 05/07/2019 [facility] [address] [place] [address] Test Date: 2019-05-05 Pat Name: OBIE SIMS Department: Room: Gender: Male Presser Automatic: pb : 1955 Requested By: AMAURI PANDEY Order Number: [id number] Sage MD: Amauri Pandey Measurements Intervals Keyes Rate: 78 P: KS: 0 QRS: -19 QRSD: 140 T: 134 QT: 398 QTc: 456 Interpretive Statements ATRIAL FIBRILLATION INTRAVENTRICULAR CONDUCTION DELAY CANNOT RULE OUT ANTERIOR INFARCTION, AGE UNDETERMINED ST AND T WAVE ABNORMALITY Amauri Pandey MD PROCEDURES-ORDERABLE NO DEONTE RGE Final Result [facility] [address] [place] [address] documented in this encounter Visit Diagnoses Diagnosis Shortness of breath- Primary documented in this encounter Care Teams Drum Sealer Relationship Specialty Start Date End Date Megan Infante MD [address] [facility] [place] [phone] PCP - General FAMILY PRACTICE 04/06/16 Amauri Pandey MD [place] [facility] Information Manager CARDIOVASCULAR DISEASE 04/06/16 12/28/23 Sharmila Davis, DANCING MASTER, FIRST MATE-C [address] [facility] [address] [place] [address] NURSE PRACTITIONER 01/04/17 04/03/24 Linda Block MD [address] [facility] [address] [place] [address] [place] [employer] CLINICAL CARDIAC ELECTROPHYSIOLOGY 02/08/17 04/12/23 Jeff Grace MD [address] [facility] [address] [place] [address] Consulting Physician INTERNAL MEDICINE 02/20/19 3 documented as of this encounter
--- OUTSIDE RECORDS SUMMARY | 2024-09-03 19:14 | XMS_ITS | Encounter Summary ---
Author Organization [facility] Address [address] [place] [address]. [place] [address] [place] [address] Care Team Providers Care Athletic Team Physician Name Role Phone Piyush Pandey MD Unavailable Unavailabl e Megan Infante MD Primary Care Provider [phone] Sharmila Davis APRN HOLE PUNCHER STRAP-C Unavailable Linda Block MD Unavailable [phone] Jeff Grace MD Unavailable Zaki Ortiz MD Unavailable [phone] Encounter Details Date Type Department Care Team (Latest Contact Info) Description 07/03/2020 8:35 AM BUSINESS INFORMATION CONSULTANT - 07/03/2020 11:59 PM BUSINESS INFORMATION CONSULTANT Hospital Encounter [facility] [address] [place] [address] Piyush Pandey MD Discharge Disposition: Home or [...] COVID-19? No / Unsure 07/03/2020 8:36 AM BUSINESS INFORMATION CONSULTANT documented as of this encounter Medications at [...] by mouth nightly at bedtime. 02/22/2019 1 sertraline 100 MG tablet Take 150 [...] Contact Info) Description 09/25/2024 2:00 PM BUSINESS INFORMATION CONSULTANT Appointment [facility] [address] [place] [address] Zayra Powell, SENIOR ARCHITECT [address] [place] [address] 10/16/2024 3:30 PM BUSINESS INFORMATION CONSULTANT Office Visit [facility] [place] [phone] Brit Gonzáles MD [address] [place] [address] documented as of this encounter Procedures Procedure Name Priority Date/Time Associated Diagnosis Comments CORONAVIRUS (COVID 19) Routine 07/03/2020 8:55 AM BUSINESS INFORMATION CONSULTANT Pre-operative laboratory examination PROTHROMBIN TIME, VENOUS Routine 07/03/2020 8:54 AM BUSINESS INFORMATION CONSULTANT 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 S/P aortic valve replacement with bioprosthetic valve Aortic stenosis Chronic atrial fibrillation (CMS/HCC HHS/HCC) BASIC METABOLIC PANEL Routine 07/03/2020 8:54 AM BUSINESS INFORMATION CONSULTANT 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 S/P aortic valve replacement with bioprosthetic valve Aortic stenosis Chronic atrial fibrillation (CMS/HCC HHS/HCC) CBC W/DIFF AUTOMATED Routine 07/03/2020 8:54 AM BUSINESS INFORMATION CONSULTANT 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 S/P aortic valve replacement with bioprosthetic valve Aortic stenosis Chronic atrial fibrillation (CMS/HCC HHS/HCC) MAGNESIUM Routine 07/03/2020 8:54 AM BUSINESS INFORMATION CONSULTANT 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 S/P aortic valve replacement with bioprosthetic valve Aortic stenosis Chronic atrial fibrillation (CMS/HCC HHS/HCC) documented in this encounter Results * PRE-SURGICAL/PRE-PROCEDURE CORONAVIRUS (COVID 19) (07/03/2020 8:55 AM BUSINESS INFORMATION CONSULTANT) CORONAVIRUS SARS COV 2 PCR (RESP) NOT DETECTED NOT DETECTED 07/04/2020 11:25 PM BUSINESS INFORMATION CONSULTANT [facility] Comment: A Not Detected (negative) test result [...] providers and patients using the following websites: https://www.[email or web address] Trolley/home/[email or web address]/HCP/NAAT/fact-sheet2 https://www.[employer] Trolley/home/Covid-19/Patients/NAAT/ fact-sheet2 This test has been authorized by the FDA under an Emergency Use Authorization (EUA) for use by authorized laboratories. Due to the current public health emergency, [facility] is receiving a high volume of samples [...] about COVID-19 can be found at the [facility] website: www.eCoast.Loop Trolley/Covid19. Test performed at [facility] [address] ??[id number] Director: REEMA ORDAZ DO,MPH FIRST TEST UNKNOWN 07/03/2020 8:47 AM [facility] EMPLOYED IN HEALTHCARE UNKNOWN 07/03/2020 8:47 AM [facility] SYMPTOMATIC DEFINED BY CDC UNKNOWN 07/03/2020 8:47 AM [facility] DATE OF SYMPTOM ONSET UNKNOWN 07/03/2020 8:57 AM [facility] HOSPITALIZATION STATUS NO 07/03/2020 8:47 AM BUSINESS INFORMATION CONSULTANT [facility] PATIENT IN ICU NO 07/03/2020 8:47 AM BUSINESS INFORMATION CONSULTANT [facility] RESIDENT OF CONGREGATE CARE UNKNOWN 07/03/2020 8:47 AM BUSINESS INFORMATION CONSULTANT [facility] NOT 07/03/2020 8:57 AM BUSINESS INFORMATION CONSULTANT [facility] PATIENT'S RACE WHITE OR 07/03/2020 8:47 AM BUSINESS INFORMATION CONSULTANT [facility] ETHNICITY NONHISPANIC 07/03/2020 8:47 AM BUSINESS INFORMATION CONSULTANT [facility] SOURCE (QST) NASOPHARYNGEAL SWAB 07/03/2020 8:47 AM BUSINESS INFORMATION CONSULTANT [facility] NASOPHARYNGEAL SWAB / Unknown 07/03/2020 8:55 AM BUSINESS INFORMATION CONSULTANT Piyush Pandey MD MICROBIOLOGY - GENERAL [facility] Final Result Performing Organization Address City/[facility]/ZIP Co de Phone Number [facility] [place] [address], [employer] [facility] [address] * (ABNORMAL) PROTIME/INR, VENOUS (07/03/2020 8:54 AM BUSINESS INFORMATION CONSULTANT) PROTIME 19.1(H) 9.4 - 12.5 SEC 07/03/2020 9:27 AM BUSINESS INFORMATION CONSULTANT [facility] INR 1.7(H) 0.9 - 1.1 07/03/2020 9:27 AM BUSINESS INFORMATION CONSULTANT [facility] 07/03/2020 8:54 AM BUSINESS INFORMATION CONSULTANT Piyush Pandey MD LABORATORY Final Resul t [facility] [address] [place] [address], * MAGNESIUM (07/03/2020 8:54 AM BUSINESS INFORMATION CONSULTANT) MAGNESIUM 2.2 1.8 - 2.4 MG/DL 07/03/2020 9:13 AM BUSINESS INFORMATION CONSULTANT [facility] 07/03/2020 8:54 AM BUSINESS INFORMATION CONSULTANT us Piyush Pandey MD LABORATORY Final Resul t [facility] [address] [place] [address], * (ABNORMAL) CBC W/DIFF AUTOMATED (07/03/2020 8:54 AM BUSINESS INFORMATION CONSULTANT) WBC 9.9 4.5 - 10.8 x10'3/uL 07/03/2020 9:00 AM [facility] RBC 4.37(L) 4.50 - 6.10 x10'6/uL 07/03/2020 9:00 AM [facility] HGB 12.2(L) 13.0 - 18.0 G/DL 07/03/2020 9:00 AM [facility] HCT 38.7 37.0 - 52.0 % 07/03/2020 9:00 AM [facility] MCV 88.6 78.0 - 100.0 FL 07/03/2020 9:00 AM [facility] MCH 27.9 27.0 - 31.0 PG 07/03/2020 9:00 AM [facility] MCHC 31.5(L) 33.0 - 36.0 G/DL 07/03/2020 9:00 AM [facility] RDW 14.4 11.5 - 14.5 % 07/03/2020 9:00 AM [facility] PLT 243 150 - 350 x10'3/uL 07/03/2020 9:00 AM [facility] MPV 9.7 7.4 - 10.4 FL 07/03/2020 9:00 AM [facility] DIFFERENTIAL COMMENT NORMAL REFERENCE RANGE NOT ESTABLISHED FOR THE PROPORTIONAL LEUKOCYTE DIFFERENTIAL. 07/03/2020 9:00 AM [facility] SEG NEUTROPHILS 59.9 % 0 9:00 AM [facility] LYMPHOCYTES 22.6 % 07/03/2020 9:00 AM [facility] MONOCYTES 11.3 % 07/03/2020 9:00 AM [facility] EOSINOPHILS 5.3 % 07/03/2020 9:00 AM [facility] BASOPHILS 0.5 % 07/03/2020 9:00 AM [facility] IMMATURE GRANS % 0.4 % 07/03/20 20 9:00 AM [facility] NRBC 0.0 % 07/03/2020 9:00 AM [facility] ABS. NEUTROPHILS 5.93 1.60 - 8.30 x10'3/uL 07/03/2020 9:00 AM [facility] ABS. LYMPHOCYTES 2.24 0.80 - 4.70 x10'3/uL 07/03/2020 9:00 AM [facility] ABS. MONOCYTES 1.12 0.00 - 1.50 x10'3/uL 07/03/2020 9:00 AM [facility] ABS. EOSINOPHILS 0.53(H) 0.00 - 0.40 x10'3/uL 07/03/2020 9:00 AM [facility] ABS. BASOPHILS 0.05 0.00 - 0.20 x10'3/uL 07/03/2020 9:00 AM [facility] ABS. IMMATURE GRANULOCYTES 0.04(H) 0.00 - 0.03 x10'3/uL 07/03/2020 9:00 AM [facility] ABS. NUCLEATED RBC'S 0.00 0.00 x10'3/uL 07/03/2020 9:00 AM [facility] 07/03/2020 8:54 AM BUSINESS INFORMATION CONSULTANT us Piyush Pandey MD LABORATORY Final Resul t [facility] [address] [place] [address], * (ABNORMAL) BASIC METABOLIC PANEL (07/03/2020 8:54 AM BUSINESS INFORMATION CONSULTANT) SODIUM S/P/B 133(L) 136 - 145 MMOL/L 07/03/2020 9:13 AM [facility] POTASSIUM S/P/B 4.4 3.5 - 5.1 MMOL/L 07/03/2020 9:13 AM [facility] CHLORIDE S/P/B 95(L) 98 - 107 MMOL/L 07/03/2020 9:13 AM [facility] CO2 32.4(H) 21.0 - 32.0 MMOL/L 07/03/2020 9:13 AM [facility] GLUCOSE 161(H) 70 - 99 MG/DL 07/03/2020 9:13 AM [facility] Comment: FASTING GLUCOSE 100 TO 125 MG/DL IS CONSISTENT WITH IMPAIRED FASTING GLUCOSE. FASTING GLUCOSE >125 MG/DL IS CONSISTENT WITH DIABETES. RANDOM GLUCOSE >200 MG/DL WITH HYPERGLYCEMIC SYMPTOMS IS CONSISTENT WITH DIABETES. PER ADA GUIDELINES BUN 30(H) 6 - 24 MG/DL 07/03/2020 9:13 AM [facility] CREATININE S/P/B 1.92(H) 0.70 - 1.30 MG/DL 07/03/2020 9:13 AM [facility] CALCIUM S/P/B 10.1 8.4 - 10.5 MG/DL 07/03/2020 9:13 AM [facility] ANION GAP 5.6 5.0 - 15.0 MMOL/L 07/03/2020 9:13 AM [facility] OSMOLALITY (CALC) 286 MOSM/KG 020 9:13 AM [facility] Comment:REFERENCE RANGE NOT ESTABLISHED EGFR NON-AFR. AMER. 36(L) >89 ML/MIN/1. 73 M2 07/03/2020 9:13 AM [facility] EGFR AFR. AMER. 41(L) >89 ML/MIN/1. 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 S/P aortic valve replacement with bioprosthetic valve Heart valve replaced by other means Aortic stenosis Aortic valve disorders Chronic atrial fibrillation ([facility] Atrial fibrillation Pre-operative laboratory examination Pre-procedural laboratory examination documented in this encounter Additional Health Concerns Infection Onset Date Last Indicated Resolved Time COVID-19 Rule Out 07/03/2020 07/03/2020 07/04/2020 11:25 PM BUSINESS INFORMATION CONSULTANT documented as of this encounter Care Teams Athletic Team Physician Relationship Specialty Start Date End Date Megan Infante MD [address] [place] [address] PCP - General FAMILY PRACTICE 04/06/16 Piyush Pandey MD [place] Space Technologist CARDIOVASCULAR DISEASE 04/06/16 12/28/23 Sharmila Davis APRN, HOLE PUNCHER STRAP-C [address] [facility] [address] [place] [address] NURSE PRACTITIONER 01/04/17 04/03/24 Linda Block MD [address] [place] [address] [place] Space Technologist CLINICAL CARDIAC ELECTROPHYSIOLOGY 02/08/17 04/12/23 Jeff Grace MD [address] [place] [phone] Consulting Physician INTERNAL MEDICINE 02/20/19 3 Zaki Ortiz MD [address] [place] [phone] Consulting Physician PULMONARY DISEASE 07/12/19 documented as of this encounter
--- OUTSIDE RECORDS SUMMARY | 2024-09-03 19:14 | XMS_ITS | Encounter Summary ---
Author Organization [facility] Address [facility] [place] [address] [place] [address] Care Team Providers Care Chief Contract Officer Name Role Phone Piyush Pandey MD Unavailable Unavailabl e Megan Infante MD Primary Care Provider [phone] Sharmila Davis APRN, NP-C Unavailable Linda Block MD Unavailable [phone] Jeff Grace MD Unavailable Reason for Visit * Reason Onset Date Comments Advise 05/26/2019 Encounter Details Date Type Department Care Team (Late st Contact Info) Description 05/26/2019 [facility]phone [facility] [address] [place] [address] Piyush Pandey MD Advise Social History Tobacco Use Types Packs/Day Years [...] as of this encounter Progress Notes * Lavern Marley - 05/26/2019 3:33 PM CDT Amie with Dr. Infante's office called re: Pt has been set up with pulmonology to see Dr. Saleh on 08/09. documented in this encounter Plan of Treatment Upcoming Encounters Date Type Department Care Team (Late st Contact Info) Description 09/25/2024 2:00 [address]PER Appointment [facility] [address] [address] Zayra Powell, MANAGER LIFE [address] [place] [address] 10/16/2024 3:30 PM COPPERSMITH HELPER Office Visit [facility] [address] [address] Brit Gonzáles MD [address] [place] [address] documented as of this encounter Visit Diagnoses Not on filedocumented in this encounter Care Teams Chief Contract Officer Relationship Specialty Start Date End Date Megan Infante MD [address] [facility] [place] [address] PCP - General FAMILY PRACTICE 04/06/16 Piyush Pandey MD [employer] CARDIOVASCULAR DISEASE 04/06/16 12/28/23 Sharmila Davis, BAR CATCHER, FACTORY MACHINE COMPUTER OPERATOR-C [address] [facility] [address] [place] [address] NURSE PRACTITIONER 01/04/17 04/03/24 Linda Block MD [address] [facility] [address] [place] [address] [employer] CLINICAL CARDIAC ELECTROPHYSIOLOGY 02/08/17 04/12/23 Jeff Grace MD [address] [facility] [address] [place] [address] Consulting Physician INTERNAL MEDICINE 02/20/19 3 documented as of this encounter
--- OUTSIDE RECORDS SUMMARY | 2024-09-03 19:14 | XMS_ITS | Encounter Summary ---
Author Organization [facility] Address [address] [place] [address]. [place] [address] [place] [address] Care Team Providers Care Transportation Logistics Internship Name Role Phone Piyush Pandey MD Unavailable Unavailabl e Megan Infante MD Primary Care Provider [phone] Sharmila Davis APRN, WINTER SPORTS MANAGER-C Unavailable [phone] Linda Block MD Unavailable [phone] Jeff Grace MD Unavailable Zaki Ortiz MD Unavailable [phone] Encounter Details Date Type Department Care Team (Latest Contact Info) Description 09/07/2020 Travel Social History Tobacco Use Types Packs/Day [...] have Coronavirus / COVID-19? No / Unsure 09/07/2020 8:31 AM PIGMENT MAKING SUPERVISOR documented as of this encounter Plan of Treatment Upcoming Encounters Date Type Department Care Team (Late st Contact Info) Description 09/25/2024 2:00 PM PIGMENT MAKING SUPERVISOR Appointment [facility] [address] [place] [address] Zayra Powell, MOSAIC TILE MAKER [address] [place] [address] 10/16/2024 3:30 PM PIGMENT MAKING SUPERVISOR [facility] [address] [place] [phone] Brit Gonzáles MD [address] [place], [place] [phone] documented as of this encounter Visit Diagnoses Not on filedocumented in this encounter Additional Health Concerns Infection Onset Date Last Indicated Resolved Time COVID-19 Rule Out 09/07/2020 09/07/2020 09/08/2020 5:52 PM PIGMENT MAKING SUPERVISOR documented as of this encounter Care Teams Transportation Logistics Internship Relationship Specialty Start Date End Date Megan Infante MD [address] [place] [address] PCP - General FAMILY PRACTICE 04/06/16 Piyush Pandey MD [employer] Watchman CARDIOVASCULAR DISEASE 04/06/16 12/28/23 Sharmila Davis, DIRECTOR WOMEN, WINTER SPORTS MANAGER-C [address] [facility] [address] [place] [phone] NURSE PRACTITIONER 01/04/17 04/03/24 Linda Block MD [address] [facility] [address] [place] [phone] [employer] Watchman CLINICAL CARDIAC ELECTROPHYSIOLOGY 02/08/17 04/12/23 Jeff Grace MD [address] [facility] [address] [place] [phone] Consulting Physician INTERNAL MEDICINE 02/20/19 3 Zaki Ortiz MD [address] [place] [phone] Consulting Physician PULMONARY DISEASE 07/12/19 documented as of this encounter
--- OUTSIDE RECORDS SUMMARY | 2024-09-03 19:14 | XMS_ITS | Encounter Summary ---
Author Organization [facility] Address [address] [place] [address]. [place] [address] [place] [address] Care Team Providers Care Edge Sander Name Role Phone Piyush Pandey MD Unavailable Unavailabl e Megan Infante MD Primary Care Provider [phone] Sharmila Davis APRN, NP-C Unavailable Linda Block MD Unavailable [phone] Jeff Grace MD Unavailable Zaki Ortiz MD Unavailable [phone] Reason for Visit * Reason Comments Follow Up Coronary Artery Disease Atrial Fibrillation Encounter Details Date Type Department Care Team (Latest Contact Info) Description 06/26/2020 11:00 AM NARROW GAUGE ENGINEER Office Visit [facility] [place] [phone] Piyush Pandey MD Follow Up; Coronary Artery Disease; Atrial Fibrillation Social History Tobacco Use Types Packs/Day Years [...] COVID-19? No / Unsure 07/03/2020 8:36 AM NARROW GAUGE ENGINEER documented as of this encounter Last Filed Vital Signs Vital Sign Reading Time Taken Comments Blood Pressure 148/75 06/26/2020 3:14 PM NARROW GAUGE ENGINEER Pulse 66 06/26/2020 3:13 PM NARROW GAUGE ENGINEER Temperature - - Respiratory Rate 22 06/26/2020 3:13 PM NARROW GAUGE ENGINEER Oxygen Saturation 98% 06/26/2020 3:13 PM NARROW GAUGE ENGINEER Inhaled Oxygen Concentration - - Weight 98.6 kg (217 lb 6.4 oz) 06/26/2020 3:13 P M NARROW GAUGE ENGINEER Height 170.2 cm (5' 7 ) 06/26/2020 3:13 PM NARROW GAUGE ENGINEER Body Mass Index 34.05 06/26/2020 3:13 PM NARROW GAUGE ENGINEER documented in this encounter Patient Instructions * Patient Instructions* Megan Lay RN - 06/26/2020 11:00 AM NARROW GAUGE ENGINEER 1. Discussed Eliquis 2. R/L heart cath next week ( or Wednesday) 3. RTC 1 year OW GAUGE ENGINEER documented in this encounter Progress Notes * Piyush Pandey MD - 06/26/2020 11:00 AM CST Reason for Visit: Follow Up, Coronary Artery Disease, and Atrial Fibrillation History of Present Illness: Recommendations and Plan: Medications: Current Outpatient Medications: ??? albuterol sulfate HFA (PROAIR HFA) 108 (90 BASE) MCG/ACT inhaler, ProAir HFA (albuterol sulfate) HFA aerosol inhaler 90 mcg/actuation; 2 puffs as needed for coughing or wheezing; 0; -Oct-2015; Active, Disp: , Rfl: ??? allopurinol 300 [...] Nare route daily., Disp: , Rfl: ??? Sziueliobpr-Roglsjhsd-Spsfsf 100-62.5-25 MCG/INH AEROSOL POWDER, BREATH ACTIVATED, Inhale [...] PGM Review of Systems Constitutional: Positive for weakness. Negative for recent unintentional weight gain, recent unintentional weight loss and new or significant fatigue. HENT: Negative for new or significant hearing loss. Eyes: Negative for blurred vision and double vision. Respiratory: Positive for shortness of breath (With exertion). Negative for cough and snoring. Cardiovascular: See HPI. Positive for palpitations, claudication and leg swelling. Gastrointestinal: Positive for constipation. Negative for blood in stool and melena. Genitourinary: Negative for dysuria. Musculoskeletal: Positive for joint stiffness/pain. Negative for myalgias. Skin: Negative for rash. Neurological: Positive for tingling/numbness. Negative for focal weakness. Endo/Heme/Allergies: Positive for easy bruising/bleeding. Negative for polydipsia. Psychiatric/Behavioral: Negative for depression and new or significant memory loss. All other systems reviewed and are negative. Vitals: 06/26/20 1513 06/26/20 1514 BP: 145/77 148/75 BP Location: Left arm Right arm Pulse: 66 Weight: 98.6 kg (217 lb 6.4 oz) Height: 5' 7 (1.702 m) Body mass index is 34.05 kg/m??. Cardiac Exam Rate/Rhythm: Normal rate and [...] JVD. Abdomen: Abdomen soft. Bowel sounds normal. Hernia present (Ventral). No tenderness. No mass. No hepatomegaly. No splenomegaly. Abdominal aorta not palpably enlarged. No abdominal bruit present. Pulmonary: Effort normal. Breath sounds normal. Skin: No rash. No cyanosis. No clubbing. No xanthoma. Bilateral knee scars; scratch hendricks on LEs bilaterally. Musculoskeletal: No kyphosis. Normal ROM. Neurological: Alert. Oriented x 3. Appropriate mood and affect. Normal motor skills. Normal gait. Comments: Wearing Illini shorts and shirt The documentation for the above exam was created using a template entered by ancillary staff however the physical exam was completed entirely by the provider responsible for this visit. The physical exam documentation was reviewed and modified by the provider to reflect his/her findings. Diagnoses/Impression: No diagnosis found. PINNACLE Documentation Completed: Atrial Fibrillation Coronary Artery Disease Heart Failure Referring Provider: Megan Infante MD PCP: MEGAN INFANTE MD OW GAUGE ENGINEER * Piyush Pandey MD - 06/26/2020 12:00 AM CST HISTORY OF PRESENT ILLNESS: Mr. Lay is seen in the cardiology clinic today for a scheduled followup visit. He reports that he has continued to have ongoing difficulties with shortness of breath. Despite Mr. Lay's complex past cardiac history and interventions, he continues to complain of shortness of breath, particularly when he is walking. He has been using oxygen per nasal cannula for afew years. He presently is sleeping in a chair because he breathes better. He continues to have ongoing difficulties with pedal edema. He denies any significant palpitations or syncope. He states that he has been compliant with his medical regimen. Mr. Lay states that he has been using Warfarin anticoagulation for his atrial fibrillation without bleeding complications. Mr. Lay's most recent evaluation included an echocardiogram and Regadenoson nuclear stress test performed in the fall of last year. The echocardiogram was technically difficult, but did seem to show a bioprosthetic aortic valve with a peak gradient of 25 mmHg (mean gradient 14 mmHg). No evidenceof aortic regurgitation was identified A trivial degree of mitral valve stenosis was noted. There was mild to moderate concentric left ventricular hypertrophy with a left ventricular systolic function at the lower limits of normal with a calculated LVEF of 53%. The Regadenoson nuclear stress test suggested fixed defects in the lateral wall and inferior wall with LVEF of 53%. RECOMMENDATIONS AND PLAN: Mr. Lay continues to have ongoing difficulties with shortness of breath which seems to be multifactorial in etiology. He certainly is overweight and is not well conditioned, has ongoing cardiac issues, and probable associated pulmonary problems. He is becoming more frustrated with his shortness of breath and more depressed as his has developed worsening Alzheimer's disease. Continued medical therapy and further evaluation seems warranted. I have recommended the following to Mr. Lay: 1. Continue present medical regimen without alteration for now. I did discuss the option of Eliquisanticoagulation to substitute for the Warfarin anticoagulation should this be easier for Mr. Layto maintain compliance. He would like to continue the Warfarin at this time. 2. Right and left heart catheterization next week to better define the etiology of Mr. Lay's shortness of breath. 3. Annual followup in the cardiology clinic. I have encouraged Mr. Lay to contact me in the meantime should he have any questions or problems. OW GAUGE ENGINEER * Piyush Pandey MD - 06/26/2020 12:00 AM CST Mr. Lay recently was seen in the cardiology clinic on 06/26/20 and was noted at that time to haveongoing difficulties with shortness of breath, which seemed to be multifactorial in etiology. It was felt that he was certainly overweight and is not well conditioned, but also had ongoing cardiac issues and probable associated pulmonary problems. He related that he was becoming increasingly more frustrated with his shortness of breath and more depressed as his has developed worsening Alzheimer's disease. Continued medical therapy and further evaluation seemed warranted. As a result, it was recommended that he undergo right and left heart catheterization to better define the etiology of his ongoing shortness of breath. Mr. Lay discontinued his Warfarin prior to the planned cardiac catheterization. Unfortunately, he presented to the [facility] Emergency Room on 07/03/20. He had had sudden onset of some neurologic symptoms, which he described as an inability to talk. He also noticed that he could not change the channels on his TV. He tried to send a text message, but was unable to spell the words he wished to send. As a result of these symptoms, he presented to the emergency room in [place]. His neurologic symptomatology seemed to resolve after being admitted overnight and he was discharged the following day. His neurologic symptoms have now completely resolved and he is back on his Warfarin anticoagulation. Mr. Lay relates that his cardiac complaints seem to continue. He continues to have occasional chest discomfort, which is located in the middle and the left side of his chest anteriorly. It usuallylasts from 5 to 10 minutes and is not necessarily related to exertion. He also has continued shortness of breath over the last few days, but blames some of this on the cold air. He denies any overtsymptoms of congestive heart failure such as paroxysmal nocturnal dyspnea, but has had some elementof orthopnea. He denies any significant edema, although he does have some left-sided lower extremity edema at times. Because of his orthopnea, he has been sleeping in a chair at night. He denies any fever or chills. He has had no bleeding complications related to his anticoagulation. RECOMMENDATIONS AND PLAN: It appears that Mr. Lay has most likely suffered a TIA, which based onits timing may have been related to his Warfarin anticoagulation cessation prior to his planned upcoming cardiac catheterization. His chest discomfort and shortness of breath persists and remains similar to his symptomatology when last seen in the cardiology clinic. Given the neurologic event, I think it is lund to wait at least 6 weeks before proceeding with the previously planned right and leftheart catheterization. Once the procedure has been rescheduled, Mr. Lay will discontinue his Warfarin, but we will use Lovenox to bridge him around the time of cardiac catheterization in an effortto avoid recurrent neurologic symptomatology. Further evaluation and treatment will be based on these cardiac catheterization results. In the meantime, I have instructed Mr. Lay to continue his present medical regimen without alteration despite his extensive list of medications. I have encouraged him to contact me prior to his scheduled upcoming cardiac catheterization should he have any further questions or problems. OW GAUGE ENGINEER documented in this encounter Plan of Treatment Upcoming Encounters Date Type Department Care Team (Late st Contact Info) Description 09/25/2024 2:00 PM NARROW GAUGE ENGINEER Appointment [facility] [address] [place] [address] Andre Zayra K, FABRICATION INSPECTOR [address] [place], [place] [phone] 10/16/2024 3:30 PM NARROW GAUGE ENGINEER Office Visit [facility] [address] [place] [address] Brit Gonzáles MD [address] [place] [address] documented as of this encounter Visit Diagnoses Diagnosis Shortness of breath- Primary Coronary artery disease involving walk[place] river coronary artery of walk[place] river heart without angina pectoris S/P aortic valve replacement with bioprosthetic valve Heart valve replaced by other means Chronic atrial fibrillation ([facility]) Atrial fibrillation Essential hypertension Unspecified essential hypertension Mixed hyperlipidemia Chronic anticoagulation Encounter for long-term (current) use of anticoagulants documented in this encounter Additional Health Concerns Infection Onset Date Last Indicated Resolved Time COVID-19 Rule Out 07/03/2020 07/03/2020 07/04/2020 11:25 PM NARROW GAUGE ENGINEER documented as of this encounter Care Teams Edge Sander Relationship Specialty Start Date End Date Megan Infante MD [address] [place] [address] PCP - General FAMILY PRACTICE 04/06/16 Piyush Pandey MD [place] Furnace Installer Helper CARDIOVASCULAR DISEASE 04/06/16 12/28/23 Sharmila Davis APRN, HR LEADER-C [address] [place] [address] [address] [place] [address] NURSE PRACTITIONER 01/04/17 04/03/24 Linda Block MD [address] [place] [phone] [place] Furnace Installer Helper CLINICAL CARDIAC ELECTROPHYSIOLOGY 02/08/17 04/12/23 Jeff Grace MD [address] [facility] [address] [place] [address] Consulting Physician INTERNAL MEDICINE 02/20/19 3 Zaki Ortiz MD [address] [place] [address] Consulting Physician PULMONARY DISEASE 07/12/19 documented as of this encounter
--- OUTSIDE RECORDS SUMMARY | 2024-09-03 19:14 | XMS_ITS | Encounter Summary ---
Author Organization [facility] Address [address] [place] [address]. [place] [address] [place] [address] Care Team Providers Care Community Manager Name Role Phone Piyush Pandey MD Unavailable Unavailabl e Megan Infante MD Primary Care Provider [phone] Sharmila Davis APRN, NP-C Unavailable [phone] Linda Block MD Unavailable [phone] Jeff Grace MD Unavailable Zaki Ortiz MD Unavailable [phone] Reason for Visit * Reason Onset Date Comments Reschedule 08/01/2020 Encounter Details Date Type Department Care Team (Late st Contact Info) Description 08/01/2020 Telephone [facility] [address] [place] [phone] Piyush Pandey MD Reschedule Social History Tobacco [...] COVID-19? No / Unsure 07/03/2020 8:36 AM CHIEF CREDIT OFFICER documented as of this encounter Progress Notes * Megan Lay RN - 08/01/2020 11:[address] Pandey is tied up in laborer prestressed concrete. Informed pt we will need to reschedule his telephone call today. Rescheduled to tomorrow at 9:30am. Patient verbalized understanding and had no further questions. F CREDIT OFFICER documented in this encounter Plan of Treatment Upcoming Encounters Date Type Department Care Team (Late st Contact Info) Description 09/25/2024 2:00 PM CHIEF CREDIT OFFICER Appointment [facility] [address] [place] [address] Zayra Powell, [facility] [address] [place] [address] 10/16/2024 3:30 PM CHIEF CREDIT OFFICER Office Visit [facility] [address] [place] [phone] Brit Gonzáles MD [address] [place] [phone] documented as of this encounter Visit Diagnoses Not on filedocumented in this encounter Care Teams Community Manager Relationship Specialty Start Date End Date Megan Infante MD [address] [place] [phone] PCP - General FAMILY PRACTICE 04/06/16 Piyush Pandey MD [place] Subgrade Tester CARDIOVASCULAR DISEASE 04/06/16 12/28/23 Sharmila Davis APRN, NETWORK ACCOUNT MANAGER-C [address] [place] [address] [address] [place] [address] NURSE PRACTITIONER 01/04/17 04/03/24 Linda Block MD [facility] [address] [place] [address] [place] Subgrade Tester CLINICAL CARDIAC ELECTROPHYSIOLOGY 02/08/17 04/12/23 Jeff Grace MD [address] [place] [address] Consulting Physician INTERNAL MEDICINE 02/20/19 3 Zaki Ortiz MD [address] [place] [address] Consulting Physician PULMONARY DISEASE 07/12/19 documented as of this encounter
--- OUTSIDE RECORDS SUMMARY | 2024-09-03 19:14 | XMS_ITS | Encounter Summary ---
Author Organization [facility] Address [facility] [facility] [place] [address] [place] [address] Care Team Providers Care Rough Rib Grader Name Role Phone Piyush Pandey MD Unavailable Unavailabl e Megan Infante MD Primary Care Provider [phone] Sharmila Davis APRN, NP-C Unavailable [phone] Linda Block MD Unavailable [phone] Jeff Grace MD Unavailable Reason for Referral * Consultation (Routine) - Closed Specialty Diagnoses / Procedures Referred By Yung t Referred To Contact [facility]EP [facility] RESPIRATORY [facility] Diagnoses Shortness of breath Sharmila Davis APRN, NP-C [address] [facility] [address] [place] [address] Phone: tel: fax: Referral ID Status Reason Start Date Expiration Date V isits Requested Visits Authorized [id number] Closed Specialty Services 06/12/2019 07/13/2020 1 1 Reason for Visit * Reason Onset Date Comments Results 06/07/2019 Stress test Encounter Details Date Type Department Care Team ([facility] st Contact Info) Description 06/07/2019 Telephone [facility] [address] [place] [address] Sharmila Davis APRN QUALITY CONTROL LEADMartyC [address] [facility] [address] [place] [address] Results (Stress test) Social History Tobacco Use Types Packs/Day Years [...] as of this encounter Progress Notes * Parish Jay RN - 06/12/2019 9:22 AM CDT Per , he agrees with recommendations per Sharmila Davis NP. Patient should be referred to pulmonary for evaluation. 's office phoned, referral placed for patient to be seen in [place]. Patient to be seenfor an appt on 07/18/19 at 9:00am, arrival time at 8:30am. Curriculum Writer informed me to let the patientknow that new patient appts can take anywhere from 2-3 hours depending on tests the provider would like to order. They states they will mail the patient a packet of information to them and that they can call their office at [phone]. I voiced understanding. Patient phoned, informed him of pulmonary referral. He states that he actually already saw a dining room attendant in [place] last week, Dr. Saleh. He states they increased his lasix to 80mg in the AM unm92hv in the PM, started on a nebulizer BID, and started on Trelegy 100mcg daily. Patient states that he is feeling better than he was previously since these changes were made. I voiced understanding. Medication list updated. Informed him I would call and cancel the referral made with Dr. Ortiz and update Sharmila on seeing and how he is feeling. Informed him to call if he had any further questions or concerns. Patient verbalized understanding and denies any questions at this time. * Parish Jay RN - 06/07/2019 9:03 AM CDT Noted. Will review with . * Parish Jay RN - 06/07/2019 9:03 AM CDT ----- Message from Sharmila Davis APRN, QUALITY CONTROL LEAD-C sent at 06/06/2019 9:56 AM CDT ----- LVEF 53%. Appears to be only fixed defects. Have Dr. Pandey review, and if he agrees set up pulmonology referral for Mr. Lay. documented in this encounter Plan of Treatment Upcoming Encounters Date Type Department Care Team (Late st Contact Info) Description 09/25/2024 2:00 PM FRONT DESK LEAD Appointment [facility] [address] [place] [address] Zayra Powell, QUAL RESEARCH MANAGER [address] [place] [address] 10/16/2024 3:30 PM FRONT DESK LEAD Office Visit [facility] [address] [place] [phone] Brit Gonzáles MD [address] [place] [address] Scheduled Referrals Name Type Priority Associated Diagnoses Orde r Schedule Ambulatory referral to Pulmonology/Sleep and Respiratory Care Referral Routine Shortness of breath Ordered: 06/12/2019 documented as of this encounter Visit Diagnoses Diagnosis Shortness of breath- Primary documented in this encounter Care Teams Rough Rib Grader Relationship Specialty Start Date End Date Megan Infante MD [address] [place] [phone] PCP - General FAMILY PRACTICE 04/06/16 Piyush Pandey MD [place] Electromedical Equipment Technician CARDIOVASCULAR DISEASE 04/06/16 12/28/23 Sharmila Davis APRN, QUALITY CONTROL LEAD-C [address] [facility] [address] [place] [phone] NURSE PRACTITIONER 01/04/17 04/03/24 Linda Block MD [address] [facility] [address] [place] [address] [place] Electromedical Equipment Technician CLINICAL CARDIAC ELECTROPHYSIOLOGY 02/08/17 04/12/23 Jeff Grace MD [address] [facility] [address] [place] [address] Consulting Physician INTERNAL MEDICINE 02/20/19 3 documented as of this encounter
--- OUTSIDE RECORDS SUMMARY | 2024-09-03 19:14 | XMS_ITS | Encounter Summary ---
Author Organization [facility] Address [facility] [place] [address] [place] [address] Care Team Providers Care Mattress Stuffer Name Role Phone Amauri Pandey MD Unavailable Unavailabl e Megan Infante MD Primary Care Provider [phone] Sharmila Davis APRN, NP-C Unavailable [phone] Linda Block MD Unavailable [phone] Jeff Grace MD Unavailable Zaki Ortiz MD Unavailable [phone] Reason for Referral * Imaging (Routine) - Closed Specialty Diagnoses / Procedures Referred By Yung sequeira Referred To Contact RADIOLOGY Diagnoses Coronary artery disease involving galena coronary artery of galena heart without angina pectoris Chronic atrial fibrillation ([facility]/HCC HHS/HCC) S/P aortic valve replacement with bioprosthetic valve Aortic stenosis Shortness of breath Procedures XA RHC+LHC POSS Amauri Pandey MD [facility] [address] [place] [address] Phone: tel: fax: Referral ID Status Reason Start Date Expiration Date Visits Re quested Visits Authorized [id number] Closed 08/27/2020 09/27/2021 1 1 LL MACHINE OPERATOR Reason for Visit * Imaging (Routine) - Closed Specialty Diagnoses / Procedures Referred By Yung sequeira Referred To Contact RADIOLOGY Diagnoses Coronary artery disease involving galena coronary artery of galena heart without angina pectoris Chronic atrial fibrillation ([facility]/HCC HHS/[facility]) S/P aortic valve replacement with bioprosthetic valve Aortic stenosis Shortness of breath Procedures XA RHC+LHC POSS Amauri Pandey MD [facility] [address] [place] [address] Phone: tel: fax: Referral ID Status Reason Start Date Expiration Date Visits Re quested Visits Authorized [id number] Closed 08/27/2020 09/27/2021 1 1 Encounter Details Date Type Department Care Team (Latest Contact Info) Description 09/10/2020 7:27 AM SCROLL MACHINE OPERATOR - 09/10/2020 3:06 PM SCROLL MACHINE OPERATOR Hospital Encounter [facility] Community Engagement Coordinator Pre/Post [address] [place] [address] Amauri Pandey MD Discharge Disposition: Home or [...] COVID-19? No / Unsure 09/10/2020 7:25 AM SCROLL MACHINE OPERATOR documented as of this encounter Last Filed Vital Signs Vital Sign Reading Time Taken Comments Blood Pressure 191/94 09/10/2020 7:00 AM SCROLL MACHINE OPERATOR Pulse 68 09/10/2020 7:00 AM SCROLL MACHINE OPERATOR Temperature 36.1 ??C (97 ??F) 09/10/2020 7:00 AM SCROLL MACHINE OPERATOR Respiratory Rate 16 09/10/2020 7:00 AM SCROLL MACHINE OPERATOR Oxygen Saturation 98% 09/10/2020 7:00 AM SCROLL MACHINE OPERATOR Inhaled Oxygen Concentration - - Weight 95.6 kg (210 lb 12.2 oz) 09/10/2020 7:00 AM SCROLL MACHINE OPERATOR Height 170.2 cm (5' 7.01 ) 09/10/2020 7:00 AM CS T Body Mass Index 33 09/10/2020 7:00 AM SCROLL MACHINE OPERATOR documented in this encounter Discharge Instructions * Discharge Instructions* Penny Lopez RN - 09/10/2020 2:36 PM SCROLL MACHINE OPERATOR Discharge Instructions After Your Cath/Stent Procedure GROIN PROCEDURE: If your procedure was performed through your groin, avoid lifting (no more than 5 pounds), squatting, and heavy activity for 3 days. Try to avoid coughing, sneezing, and straining with a bowel movement over the next 24 hours. If you must do so, apply direct pressure to the site with your fingers to protect it. WRIST PROCEDURE: If your procedure was performed through the wrist, avoid lifting (no more than 5 pounds with that arm) and heavy activity for 2 days. YOU MAY NOT DRIVE YOURSELF HOME THE DAY OF YOUR PROCEDURE. During the procedure you were given sedation that can affect your judgement. As the passenger, it is important to take a break every 60-90 minutes during the trip home to stretch your legs. FATIGUE AND WEAKNESS: It is normal to have some fatigue and weakness for a day or so after your procedure. This is due to the sedation used for the procedure and the bedrest during your hospital stay. SITE CARE: Remove the dressing from your procedure site the next day. You may want to remove the dressing in the shower, allowing the dressing to become wet but keeping the direct force of the wateraway from the site. Pat the site dry after your shower. You may shower, but do not sit in a bath tub, hot tub, or swim for 3-4 days. It is not necessary to keep the area covered. You should, however,keep it clean and dry for 3-4 days. It is common to feel a pea-sized knot at the site of your groin procedure for several weeks. CALL OUR OFFICE IF YOU NOTICE: - Swelling at the site of your procedure - Increased pain at the site - Fever (greater than 101 degrees) - Any signs of infection at the site such as redness or drainage BRUISING: Bruising at the cath site is not unusual. The discoloration may spread down your leg or arm and take several weeks to completely disappear. This is acceptable as long as there is no swelling or increased pain at the site. Soreness is not uncommon. Take Tylenol for pain. BLEEDING: If site begins to bleed. THIS IS AN EMERGENCY. You should lay flat and hold pressure directly to site or have someone else hold firm pressure. You need to try to get the bleeding to stop. CALL [address] TO THE ER. DO NOT HAVE SOMEONE DRIVE YOU. IF YOU FEEL THAT YOU NEED IMMEDIATE ATTENTION, GO TO THE NEAREST EMERGENCY ROOM OR CALL 911. See your family doctor in 10-14 days or sooner if you have problems. Your procedure results will besent to your doctor. See your director peoplesoft as directed. Continue medications as directed. Our office is open Wednesday through Wednesday from 8:00am to 4:30 pm, if you have general questions or if you need to schedule an appointment. Call at [phone] Due to the sedation you received today, (for 24 hours) please do not: -Sign any legal documents or make any important decisions -Drink alcohol or take medication intended to make you sleep -Drive a car or operate any hazardous machinery LL MACHINE OPERATOR documented in this encounter Medications at Time [...] directed 2 documented as of this encounter H&P Notes * Amauri Pandey MD - 09/10/2020 8:44 AM CST Mr. Sims recently was seen in the cardiology clinic [...] etiology of his ongoing shortness of breath. ?? Mr. Sims discontinued his Warfarin prior to the planned cardiac catheterization. Unfortunately, he presented to the [facility] Emergency Room on 07/03/20. He had [...] he presented to the emergency room in [place]. His neurologic symptomatology seemed to resolve after being admitted overnight and he was discharged the following day. His neurologic symptoms have now completely resolved and he is back on his Warfarin anticoagulation. ?? Mr. Sims relates that his cardiac complaints seem to [...] no bleeding complications related to his anticoagulation. ?? RECOMMENDATIONS AND PLAN: It appears that Mr. Sims has most likely suffered a TIA, which [...] Once the procedure has been rescheduled, Mr. Sims will discontinue his Warfarin, but we will use Lovenox to bridge him around the time of cardiac catheterization in an effortto avoid recurrent neurologic symptomatology. Further evaluation and treatment will be based on these cardiac catheterization results. In the meantime, I have instructed Mr. Sims to continue his present medical regimen without alteration despite his extensive list of medications. I have encouraged him to contact me prior to his scheduled upcoming cardiac catheterization should he have any further questions or problems. ?? Status: Signed Expand All Collapse All []Expand All by Default Reason for Visit: Follow Up, Coronary Artery [...] Nare route daily., Disp: , Rfl: ??? Qykfspkimos-Dwruqgqiz-Eubgwk 100-62.5-25 MCG/INH AEROSOL POWDER, BREATH ACTIVATED, Inhale [...] , Rfl: No Known Allergies Past Medical History Past Medical History: Diagnosis Date ??? Abnormal ankle brachial index (STELLA) ? Acute on chronic heart failure, unspecified heart failure type (CMS/HCC) ? Anxiety ? Aortic valve stenosis ? Arthritis ? Atrial fibrillation (CMS/HCC) ? s/p PVI/WACA 10/2015 ??? Bilateral leg pain ? Carotid disease, bilateral (CMS/HCC) ? Claudication (CMS/HCC) ? COPD (chronic obstructive pulmonary disease) (CMS/HCC) ? Coronary artery disease ? Diabetes mellitus, type II (CMS/HCC) ? Edema 04/19/2018 ?? 2+ pitting ??? Hyperlipidemia ? Hypertension ? LV dysfunction ? Osteoarthritis ? PAD (peripheral artery disease) (CMS/HCC) ? Restless leg syndrome ? S/P aortic valve replacement with bioprosthetic valve 2013 ?? 1999, 2013 ??? SOB (shortness of breath) ? Varicose veins of bilateral lower extremities with other complications ?? Past Surgical History Past Surgical History: Procedure Laterality Date ??? APPENDECTOMY ? CARDIAC VALVE REPLACEMENT ?? 1999 ??? CARDIAC VALVE REPLACEMENT ?? 2013 ??? CARDIOVERSION EXTERNAL ?? 10/01/2015 ??? CARDIOVERSION EXTERNAL ?? 04/14/2012 ??? HIP ARTHROPLASTY Left ? KNEE ARTHROPLASTY Bilateral ? REPAIR ROTATOR CUFF W/ OR W/O ACROMIOPLASTY ? USE NEMO+CARDIOVERSION ?? 03/24/2016 ??? XA A-FIB ABLATION ?? 10/23/2015 ?? PVI/WACA Social History ?? Tobacco Use ??? Smoking status: Former Smoker ??? Smokeless tobacco: Former User ? Types: Chew Substance Use Topics ??? Alcohol use: Yes ? Comment: 6 per week ??? Drug use: No Family History No family history on file. Family Status Relation Name Status ??? Brother ?? Alive ??? Sister ?? Alive ??? Mother ? Father ? PGF ? MGF ? MGM ? PGM ? Review of Systems Constitutional: Positive for weakness. [...] All other systems reviewed and are negative. ? Vitals Vitals: ?? 06/26/20 1513 06/26/20 1514 BP: 145/77 148/75 BP Location: Left arm Right arm Pulse: 66 ?? Weight: 98.6 kg (217 lb 6.4 oz) ?? Height: 5' 7 (1.702 m) ?? Body mass index is 34.05 kg/m??. Cardiac Exam Rate/Rhythm: Normal rate and regular rhythm. PMI: PMI is not displaced. Pulses: Normal pulses. Femoral pulses are 2+ on the right side and 2+ on the left side. ?? Heart Sounds: Normal heart sounds. Normal S1 sounds. Normal S2 sounds. No gallop present. No S3. NoS4. Murmurs: ? Physical Exam Constitutional: No distress. Healthy Appearance. [...] clubbing. No xanthoma. Bilateral knee scars; scratch henrdicks on LEs bilaterally. Musculoskeletal: No kyphosis. Normal ROM. Neurological: Alert. Oriented x 3. Appropriate mood and affect. Normal motor skills. Normal gait. Comments: Wearing Illini shorts and shirt ?? The documentation for the above exam was created using a template entered by ancillary staff however the physical exam was completed entirely by the provider responsible for this visit. The physical exam documentation was reviewed and modified by the provider to reflect his/her findings. ? Diagnoses/Impression: No diagnosis found. ?? PINNACLE Documentation Completed: Atrial Fibrillation Coronary Artery Disease Heart Failure ?? Referring Provider: Megan Infante LL MACHINE OPERATOR documented in this encounter OR Notes * Brief Op Note - Amauri Pandey MD - 09/10/2020 10:58 AM CST General Procedure Op Note Procedure Note Obie Sims 09/10/2020 Procedure: R/L Cardiac catheterization Pre-Op Diagnosis: Chest pain/SOB S/P AVR Post-Op Diagnosis: Pulmonary HTN, CAD Findings: 1. 60% proximal LAD and 50% ostial RCA stenoses. 2. Aortogram: Bioprosthesis without AI. 3. Severe pulmonary HTN in setting of Afib. Specimen(s) Removed: None Anesthesia: Local and Procedural Surgeon: Katherin Rehabilitation Attendant: None Estimated Blood Loss: Minimal AMAURI PANDEY MD Date: 09/10/2020 Time: 10:58 AM LL MACHINE OPERATOR documented in this encounter Plan of Treatment Upcoming Encounters Date Type Department Care Team (Late st Contact Info) Description 09/25/2024 2:00 PM SCROLL MACHINE OPERATOR Appointment [facility] [address] [place] [address] Zayra Powell, PICKER TENDER [address] [place] [address] 10/16/2024 3:30 PM SCROLL MACHINE OPERATOR Office Visit [facility] [address] [place] [phone] Brit Gonzáles MD [address] [place] [id number] documented as of this encounter Procedures Procedure Name Priority Date/Time Associated Diagnosis Comments XA RHC+LHC POSS Routine 09/10/2020 10:19 AM SCROLL MACHINE OPERATOR Coronary artery disease involving galena coronary artery of galena heart without angina pectoris Chronic atrial fibrillation ([facility]) S/P aortic valve replacement with bioprosthetic valve Aortic stenosis Shortness of breath PROTHROMBIN TIME, VENOUS STAT 09/10/2020 8:10 AM SCROLL MACHINE OPERATOR ECG 12-LEAD STAT 09/10/2020 8:07 AM SCROLL MACHINE OPERATOR documented in this encounter Results * XA RHC+LHC POSS (09/10/2020 10:19 AM SCROLL MACHINE OPERATOR) Anatomical Region Laterality Modality Cardiac Community Engagement Coordinator 09/10/2020 9:30 AM SCROLL MACHINE OPERATOR Amauri Pandey MD BUFFING WHEEL OPERATOR Final Resul t * (ABNORMAL) PROTIME/INR, VENOUS (09/10/2020 8:10 AM SCROLL MACHINE OPERATOR) PROTIME 15.0(H) 10.2 - 12.9 SEC 09/10/2020 9:09 AM SCROLL MACHINE OPERATOR [facility] INR 1.3(H) 0.9 - 1.1 09/10/2020 9:09 AM SCROLL MACHINE OPERATOR [facility] 09/10/2020 8:10 AM SCROLL MACHINE OPERATOR Amauri Pandey MD LABORATORY Final Resul t [facility] [address] [place] [address], [id number] * ECG 12 lead (09/10/2020 8:07 AM SCROLL MACHINE OPERATOR) 09/10/2020 8:07 AM SCROLL MACHINE OPERATOR Narrative [facility] - 09/10/2020 12:17 PM SCROLL MACHINE OPERATOR ? [facility] ?[address] [place], [place] ??[address] ? Test Date: ?2020-09-10 Pat Name: ? OBIE SIMS ?Department: ? Room: ? [id number] Gender: ? Male ? Carton Lettering Machine Operator: ?? Ll : ?1955 ? Requested By: AMAURI PANDEY Order Number: [id number] ? Reading MD: ?? Amauri Pandey ? Measurements Intervals ?[place] ? Rate: ? 76 ? P: ? [place]: ? 0 ?QRS: ?-29 QRSD: ? 142 ?T: ?135 QT: ? 408 ? QTc: ?461 ? Interpretive Statements ATRIAL FIBRILLATION NONSPECIFIC INTRAVENTRICULAR BLOCK LL MACHINE OPERATOR Procedure Note Amauri Pandey MD - 09/10/2020 [place] [address] [place] [address] Test Date: 2020-09-10 Pat Name: OBIE SIMS Department: Room: [address] Gender: Male Carton Lettering Machine Operator: : 1955 Requested By: AMAURI PANDEY Order Number: [id number] Sage MD: Amauri Pandey Measurements Intervals [place] Rate: 76 P: [place]: 0 QRS: -29 QRSD: 142 T: 135 QT: 408 QTc: 461 Interpretive Statements ATRIAL FIBRILLATION NONSPECIFIC INTRAVENTRICULAR BLOCK LL MACHINE OPERATOR us Amauri Pandey MD ECG ORDERABLES Final Resul t [facility] documented in this encounter Visit Diagnoses Diagnosis Coronary artery disease involving galena coronary artery of galena heart without angina pectoris Chronic atrial fibrillation ([facility]/HCC [facility]/HCC) Atrial fibrillation S/P aortic valve replacement with bioprosthetic valve Heart valve replaced by other means Aortic stenosis Aortic valve disorders Shortness of breath documented in this encounter Administered Medications Inactive Administered Medications - up to 3 most recent administrations Medication Order MAR Action Action Date Dose Rate Site acetaminophen (TYLENOL) tablet 325 mg 325 mg, Oral, Every 4 hours PRN, Mild pain (Scale 1 - 3), Starting on Wed09/10/20 at 1410, Until Wed09/10/20 at 1706, Maximum dose of acetaminophen is 4000 mg from all sources in 24 hours., Post-Op amLODIPine (NORVASC) tablet 2.5 mg 2.5 mg, Oral, Once, 1 dose, On Wed09/10/20 at 1115 Given 09/10/2020 11:07 AM SCROLL MACHINE OPERATOR 2.5 mg atropine injection 0.5 mg 0.5 mg, Intravenous, Once as needed, Other, for heart rate less than 50 bpm and / or SBP less than 90 mmHg, 1 dose, Starting on Wed09/10/20 at 1410, Until Wed09/10/20 at 1706, Post-Op carvedilol (COREG) tablet 6.25 mg 6.25 mg, Oral, Once, 1 dose, On Wed09/10/20 at 1115, Take with meal or snack Given 09/10/2020 11:07 AM SCROLL MACHINE OPERATOR 6.25 mg fentaNYL (SUBLIMAZE) injection 25 mcg 25 mcg, Intravenous, Every 30 min PRN, Severe pain (Scale 8 - 10), Starting on Wed09/10/20 at 1410, Until Wed09/10/20 at 1706, If intravenous (IV) route has been ordered, give over 1-2 minutes., Post-Op hydrALAZINE (APRESOLINE) injection 10 mg 10 mg, Intravenous, Once, 1 dose, On Wed09/10/20 at 1100, Monitor HR and BP before dose and 15 min after IV dose. For IV push give over 1-2 minutes=5mg/min. Given 09/10/2020 10:39 AM SCROLL MACHINE OPERATOR 10 mg hydrALAZINE (APRESOLINE) injection 10 mg 10 mg, Intravenous, Every 4 hours PRN, Other, SBP > 170 mmHg, Starting on Wed09/10/20 at 1050, Until Wed09/10/20 at 1706, Monitor HR and BP before dose and 15 min after IV dose. For IV push give over 1-2 minutes=5mg/min. HYDROcodone-acetaminophen (NORCO) 10-325 MG tablet 1 tablet 1 tablet, Oral, Every 6 hours PRN, Moderate pain (Scale 4 - 7), Starting on Wed09/10/20 at 1410, Until Wed09/10/20 at 1706, Maximum dose of acetaminophen is 4000 mg from all sources in 24 hours., Post-Op HYDROcodone-acetaminophen (NORCO) 7.5-325 MG tablet 1 tablet 1 tablet, Oral, Every 6 hours PRN, Moderate pain (Scale 4 - 7), Starting on Wed09/10/20 at 1126, Until Wed09/10/20 at 1706, Maximum dose of acetaminophen is 4000 mg from all sources in 24 hours. Given 09/10/2020 12:16 PM SCROLL MACHINE OPERATOR 1 tablet ltgxhdqbx-bpgdsexq-fffrvbmpsyn (MYLANTA MAXIMUM STRENGTH) 7596-7078-244 mg/30mL suspension 10 mL, Oral, Every 4 hours PRN, Indigestion, Heartburn, Starting on Wed09/10/20 at 1410, Until Wed09/10/20 at 1706, Shake Well, Post-Op nitroglycerin (NITROSTAT) SL tablet 0.4 mg 0.4 mg, Sublingual, Every 5 min PRN, Chest Pain, 3 doses, Starting on Wed09/10/20 at 1410, Until Wed09/10/20 at 1706, Notify MD if not relieved by one tablet. HOLD for SBP less than 90., Post-Op ondansetron (ZOFRAN) injection 4 mg 4 mg, Intravenous, Every 8 hours PRN, Nausea, Vomiting, Starting on Wed09/10/20 at 0748, Until Wed09/10/20 at 1706, IV push over 2-5 minutes., Pre-Op ondansetron (ZOFRAN) injection 4 mg 4 mg, Intravenous, Every 8 hours PRN, Nausea, Vomiting, Starting on Wed09/10/20 at 1410, Until Wed09/10/20 at 1706, IV push over 2-5 minutes., Post-Op senna-docusate (SENOKOT-S) 8.6-50 MG tablet 2 tablet 2 tablet, Oral, Nightly PRN, Constipation, Starting on Wed09/10/20 at 1410, Until Wed09/10/20 at 1706, Post-Op documented in this encounter Active and Recently Administered Medications Times are shown in SCROLL MACHINE OPERATOR. Scheduled Medication Order 09/08/2020 09/09/2020 09/10/2020 amLODIPine (NORVASC) tablet 2.5 mg (COMPLETED) 2.5 mg, Oral, Once, 1 dose, On Wed09/10/20 at 1115 1107 (Given - Provid er: Penny Lopez RN) carvedilol (COREG) tablet 6.25 mg (COMPLETED) 6.25 mg, Oral, Once, 1 dose, On Wed09/10/20 at 1115, Take with meal or snack 1107 (Given - Provid er: Penny Lopez RN) hydrALAZINE (APRESOLINE) injection 10 mg (COMPLETED) 10 mg, Intravenous, Once, 1 dose, On Wed09/10/20 at 1100, Monitor HR and BP before dose and 15 min after IV dose. For IV push give over 1-2 minutes=5mg/min. 1039 (Given - Provid er: Penny Lopez RN) PRN Medication Order 09/08/2020 09/09/2020 09/10/2020 acetaminophen (TYLENOL) tablet 325 mg 325 mg, Oral, Every 4 hours PRN, Mild pain (Scale 1 - 3), Starting on Wed09/10/20 at 1410, Until Wed09/10/20 at 1706, Maximum dose of acetaminophen is 4000 mg from all sources in 24 hours., Post-Op atropine injection 0.5 mg 0.5 mg, Intravenous, Once as needed, Other, for heart rate less than 50 bpm and / or SBP less than 90 mmHg, 1 dose, Starting on Wed09/10/20 at 1410, Until Wed09/10/20 at 1706, Post-Op fentaNYL (SUBLIMAZE) injection 25 mcg 25 mcg, Intravenous, Every 30 min PRN, Severe pain (Scale 8 - 10), Starting on Wed09/10/20 at 1410, Until Wed09/10/20 at 1706, If intravenous (IV) route has been ordered, give over 1-2 minutes., Post-Op hydrALAZINE (APRESOLINE) injection 10 mg 10 mg, Intravenous, Every 4 hours PRN, Other, SBP > 170 mmHg, Starting on Wed09/10/20 at 1050, Until Wed09/10/20 at 1706, Monitor HR and BP before dose and 15 min after IV dose. For IV push give over 1-2 minutes=5mg/min. HYDROcodone-acetaminophen (NORCO) 10-325 MG tablet 1 tablet 1 tablet, Oral, Every 6 hours PRN, Moderate pain (Scale 4 - 7), Starting on Wed09/10/20 at 1410, Until Wed09/10/20 at 1706, Maximum dose of acetaminophen is 4000 mg from all sources in 24 hours., Post-Op HYDROcodone-acetaminophen (NORCO) 7.5-325 MG tablet 1 tablet 1 tablet, Oral, Every 6 hours PRN, Moderate pain (Scale 4 - 7), Starting on Wed09/10/20 at 1126, Until Wed09/10/20 at 1706, Maximum dose of acetaminophen is 4000 mg from all sources in 24 hours. 1216 (Given - Provid er: Penny Lopez RN) rpaizgifc-fivxiqlk-sujzxsfidcz (MYLANTA MAXIMUM STRENGTH) 9181-4025-909 mg/30mL suspension 10 mL, Oral, Every 4 hours PRN, Indigestion, Heartburn, Starting on Wed09/10/20 at 1410, Until Wed09/10/20 at 1706, Shake Well, Post-Op nitroglycerin (NITROSTAT) SL tablet 0.4 mg 0.4 mg, Sublingual, Every 5 min PRN, Chest Pain, 3 doses, Starting on Wed09/10/20 at 1410, Until Wed09/10/20 at 1706, Notify MD if not relieved by one tablet. HOLD for SBP less than 90., Post-Op ondansetron (ZOFRAN) injection 4 mg 4 mg, Intravenous, Every 8 hours PRN, Nausea, Vomiting, Starting on Wed09/10/20 at 0748, Until Wed09/10/20 at 1706, IV push over 2-5 minutes., Pre-Op ondansetron (ZOFRAN) injection 4 mg 4 mg, Intravenous, Every 8 hours PRN, Nausea, Vomiting, Starting on Wed09/10/20 at 1410, Until Wed09/10/20 at 1706, IV push over 2-5 minutes., Post-Op senna-docusate (SENOKOT-S) 8.6-50 MG tablet 2 tablet 2 tablet, Oral, Nightly PRN, Constipation, Starting on Wed09/10/20 at 1410, Until Wed09/10/20 at 1706, Post-Op documented in this encounter Care Teams Mattress Stuffer Relationship Specialty Start Date End Date Megan Infante MD [address] [place] [phone] PCP - General FAMILY PRACTICE 04/06/16 Amauri Pandey MD [place] [employer] CARDIOVASCULAR DISEASE 04/06/16 12/28/23 Sharmila Davis APRN, HOME CONNECT LPN-C [address] [facility] [address] [place] [phone] NURSE PRACTITIONER 01/04/17 04/03/24 Linda Block MD [address] [phone] [place] [employer] CLINICAL CARDIAC ELECTROPHYSIOLOGY 02/08/17 04/12/23 Jeff Grace MD [address] [phone] Consulting Physician INTERNAL MEDICINE 02/20/19 3 Zaki Ortiz MD [address] [phone] Consulting Physician PULMONARY DISEASE 07/12/19 documented as of this encounter
--- OUTSIDE RECORDS SUMMARY | 2024-09-03 19:14 | XMS_ITS | Encounter Summary ---
Author Organization [facility] Address [address] [place] [address]. [place] [address] [place] [address] Care Team Providers Care Heel Stiffener Name Role Phone Piyush Pandey MD Unavailable Unavailabl e Megan Infante MD Primary Care Provider [phone] Sharmila Davis APRN WASHING MACHINE INSTALLER-C Unavailable Linda Block MD Unavailable [phone] Jeff Grace MD Unavailable Zaki Ortiz MD Unavailable [phone] Encounter Details Date Type Department Care Team (Latest Contact Info) Description 09/07/2020 8:32 AM BUSINESS ANALYTICS INTERN - 09/07/2020 11:59 PM BUSINESS ANALYTICS INTERN Hospital Encounter [facility] [address] [place] [address] Piyush Pandey MD Discharge Disposition: Home or [...] COVID-19? No / Unsure 09/07/2020 8:31 AM BUSINESS ANALYTICS INTERN documented as of this encounter Medications at [...] I83.893 1 Container 6 04/11/2019 2 enoxaparin 60 MG/0.6ML Solution Stop warfarin 4 [...] mouth 3 (three) times daily. 08/26/2020 1 prazosin 1 MG capsule Take 1 mg [...] Contact Info) Description 09/25/2024 2:00 PM BUSINESS ANALYTICS INTERN Appointment 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 Chronic atrial fibrillation ([facility]/HCC HHS/HCC) S/P aortic valve replacement with bioprosthetic valve Aortic stenosis Shortness of breath BASIC METABOLIC PANEL Routine 09/07/2020 8:45 AM BUSINESS ANALYTICS INTERN 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 Chronic atrial fibrillation (CMS/HCC HHS/HCC) S/P aortic valve replacement with bioprosthetic valve Aortic stenosis Shortness of breath CBC W/DIFF AUTOMATED Routine 09/07/2020 8:45 AM BUSINESS ANALYTICS INTERN 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 Chronic atrial fibrillation (CMS/HCC HHS/HCC) S/P aortic valve replacement with bioprosthetic valve Aortic stenosis Shortness of breath MAGNESIUM Routine 09/07/2020 8:45 AM BUSINESS ANALYTICS INTERN 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 Chronic atrial fibrillation (CMS/HCC HHS/HCC) S/P aortic valve replacement with bioprosthetic valve Aortic stenosis Shortness of breath CORONAVIRUS (COVID 19) Routine 09/07/2020 8:40 AM BUSINESS ANALYTICS INTERN Pre-operative laboratory examination documented in this encounter Results * (ABNORMAL) PROTIME/INR, VENOUS (09/07/2020 8:45 AM BUSINESS ANALYTICS INTERN) PROTIME 25.2(H) 9.4 - 12.5 SEC 09/07/2020 9:03 AM BUSINESS ANALYTICS INTERN [facility] INR 2.3(H) 0.9 - 1.1 09/07/2020 9:03 AM BUSINESS ANALYTICS INTERN [facility] 09/07/2020 8:45 AM BUSINESS ANALYTICS INTERN Piyush Pandey MD LABORATORY Final Resul t Performing Organization Address [facility]/ZIP Co de Phone Number [facility] [address] [place] [address], * MAGNESIUM (09/07/2020 8:45 AM BUSINESS ANALYTICS INTERN) Pathologist [facility] MAGNESIUM 2.2 1.8 - 2.4 MG/DL 09/07/2020 9:06 AM BUSINESS ANALYTICS INTERN [facility] 09/07/2020 8:45 AM BUSINESS ANALYTICS INTERN Piyush Pandey MD LABORATORY Final Resul t Performing Organization Address [facility]/ZIP Co de Phone Number [facility] [address] [place] [address], * (ABNORMAL) CBC W/DIFF AUTOMATED (09/07/2020 8:45 AM BUSINESS ANALYTICS INTERN) WBC 9.0 4.5 - 10.8 x10'3/uL 09/07/2020 8:56 AM BUSINESS ANALYTICS INTERN [facility] RBC 4.15(L) 4.50 - 6.10 x10'6/uL 09/07/2020 8:56 AM BUSINESS ANALYTICS INTERN [facility] HGB 11.5(L) 13.0 - 18.0 G/DL 09/07/2020 8:56 AM [facility] HCT 36.9(L) 37.0 - 52.0 % 09/07/2020 8:56 AM [facility] MCV 88.9 78.0 - 100.0 FL 09/07/2020 8:56 AM [facility] MCH 27.7 27.0 - 31.0 PG 09/07/2020 8:56 AM [facility] MCHC 31.2(L) 33.0 - 36.0 G/DL 09/07/2020 8:56 AM [facility] RDW 14.5 11.5 - 14.5 % 09/07/2020 8:56 AM [facility] PLT 188 150 - 350 x10'3/uL 09/07/2020 8:56 AM [facility] MPV 10.9(H) 7.4 - 10.4 FL 09/07/2020 8:56 AM [facility] DIFFERENTIAL COMMENT NORMAL REFERENCE RANGE NOT ESTABLISHED FOR THE PROPORTIONAL LEUKOCYTE DIFFERENTIAL. 09/07/2020 8:56 AM [facility] SEG NEUTROPHILS 71.8 % 8:56 AM [facility] LYMPHOCYTES 13.3 % 09/07/2020 8:56 AM [facility] MONOCYTES 9.5 % 09/07/2020 8:56 AM [facility] EOSINOPHILS 4.8 % 09/07/2020 8:56 AM [facility] BASOPHILS 0.4 % 09/07/2020 8:56 AM [facility] IMMATURE GRANS % 0.2 % 09/07/19 8:56 AM [facility] NRBC 0.0 % 09/07/2020 8:56 AM [facility] ABS. NEUTROPHILS 6.49 1.60 - 8.30 x10'3/uL 09/07/2020 8:56 AM [facility] ABS. LYMPHOCYTES 1.20 0.80 - 4.70 x10'3/uL 09/07/2020 8:56 AM [facility] ABS. MONOCYTES 0.86 0.00 - 1.50 x10'3/uL 09/07/2020 8:56 AM BUSINESS ANALYTICS INTERN [facility] ABS. EOSINOPHILS 0.43(H) 0.00 - 0.40 x10'3/uL 09/07/2020 8:56 AM BUSINESS ANALYTICS INTERN [facility] ABS. BASOPHILS 0.04 0.00 - 0.20 x10'3/uL 09/07/2020 8:56 AM [facility] ABS. IMMATURE GRANULOCYTES 0.02 0.00 - 0.03 x10'3/uL 09/07/2020 8:56 AM BUSINESS ANALYTICS INTERN [facility] ABS. NUCLEATED RBC'S 0.00 0.00 x10'3/uL 09/07/2020 8:56 AM [facility] 09/07/2020 8:45 AM BUSINESS ANALYTICS INTERN Piyush Pandey MD LABORATORY Final Resul t [facility] [address] [place] [address], * (ABNORMAL) BASIC METABOLIC PANEL (09/07/2020 8:45 AM BUSINESS ANALYTICS INTERN) SODIUM S/P/B 136 136 - 145 MMOL/L 09/07/2020 9:06 AM [facility] POTASSIUM S/P/B 4.8 3.5 - 5.1 MMOL/L 09/07/2020 9:06 AM [facility] CHLORIDE S/P/B 103 98 - 107 MMOL/L 09/07/2020 9:06 AM [facility] CO2 28.1 21.0 - 32.0 MMOL/L 09/07/2020 9:06 AM [facility] GLUCOSE 156(H) 70 - 99 MG/DL 09/07/2020 9:06 AM [facility] Comment: FASTING GLUCOSE 100 TO 125 MG/DL IS CONSISTENT WITH IMPAIRED FASTING GLUCOSE. FASTING GLUCOSE >125 MG/DL IS CONSISTENT WITH DIABETES. RANDOM GLUCOSE >200 MG/DL WITH HYPERGLYCEMIC SYMPTOMS IS CONSISTENT WITH DIABETES. PER ADA GUIDELINES BUN 20 6 - 24 MG/DL 09/07/2020 9:06 AM [facility] CREATININE S/P/B 1.38(H) 0.70 - 1.30 MG/DL 09/07/2020 9:06 AM [facility] CALCIUM S/P/B 9.3 8.4 - 10.5 MG/DL 09/07/2020 9:06 AM [facility] ANION GAP 4.9(L) 5.0 - 15.0 MMOL/L 09/07/2020 9:06 AM [facility] OSMOLALITY (CALC) 288 MOSM/KG 021 9:06 AM [facility] Comment:REFERENCE RANGE NOT ESTABLISHED EGFR NON-AFR. AMER. 53(L) >89 ML/MIN/1. 73 M2 09/07/2020 9:06 AM [facility] EGFR AFR. AMER. 61(L) >89 ML/MIN/1. 73 M2 09/07/2020 9:06 AM [facility] GFR NOTES GFR REFERENCE S: 09/07/2020 9:06 AM [facility] Comment: THE ESTIMATED GFR IS CALCULATED [...] FAILURE: <15 ml/min/1.73 m2 09/07/2020 8:45 AM BUSINESS ANALYTICS INTERN us Piyush Pandey MD LABORATORY Final Resul t [facility] [address] [place] [address], * PRE-SURGICAL/PRE-PROCEDURE CORONAVIRUS (COVID 19) (09/07/2020 8:40 AM BUSINESS ANALYTICS INTERN) CORONAVIRUS SARS COV 2 PCR (RESP) NOT DETECTED NOT DETECTED 09/08/2020 5:52 PM BUSINESS ANALYTICS INTERN [facility] Comment: A Not Detected (negative) test [...] providers and patients using the following websites: https://www.Flywheel Software.Flixel Photos/home/Covid-19/HCP/NAAT/fact-sheet2 https://www.Flywheel Software.Flixel Photos/home/Covid-19/Patients/NAAT/ fact-sheet2 This test has been authorized by the FDA under an Emergency Use Authorization (EUA) for use by authorized laboratories. Due to the current public health emergency, [facility] is receiving a high volume of samples [...] about COVID-19 can be found at the [employer] website: www.Connexity.Flixel Photos/Covid19. Test performed at [facility] [place] [id number] [place] [address] ??[phone] Director: REEMA ORDAZ DO,MPH FIRST TEST UNKNOWN 09/07/2020 8:37 AM BUSINESS ANALYTICS INTERN [facility] EMPLOYED IN HEALTHCARE NO 09/07/2020 8:37 AM BUSINESS ANALYTICS INTERN [facility] SYMPTOMATIC DEFINED BY CDC UNKNOWN 09/07/2020 8:37 AM BUSINESS ANALYTICS INTERN [facility] DATE OF SYMPTOM ONSET UNKNOWN 09/07/2020 8:49 AM BUSINESS ANALYTICS INTERN [facility] HOSPITALIZATION STATUS NO 09/07/2020 8:37 AM BUSINESS ANALYTICS INTERN [facility] PATIENT IN ICU NO 09/07/2020 8:37 AM BUSINESS ANALYTICS INTERN [facility] RESIDENT OF [facility] NO 09/07/2020 8:37 AM BUSINESS ANALYTICS INTERN [facility] NOT 09/07/2020 8:49 AM BUSINESS ANALYTICS INTERN [facility] PATIENT'S RACE WHITE OR 09/07/2020 8:37 AM BUSINESS ANALYTICS INTERN [facility] ETHNICITY NONHISPANIC 09/07/2020 8:37 AM BUSINESS ANALYTICS INTERN [facility] SOURCE (QST) NASOPHARYNGEAL SWAB 09/07/2020 8:37 AM BUSINESS ANALYTICS INTERN [facility] NASOPHARYNGEAL SWAB / Unknown 09/07/2020 8:40 AM BUSINESS ANALYTICS INTERN Piyush Pandey MD MICROBIOLOGY - GENERAL ORDE [facility] Final Result [facility] [address] [place] [address], [facility] [address] documented in this encounter Visit Diagnoses Diagnosis Pre-operative laboratory examination Pre-procedural laboratory examination 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 Chronic atrial fibrillation (CMS/HCC HHS/HCC) Atrial fibrillation S/P aortic valve replacement with bioprosthetic valve Heart valve replaced by other means Aortic stenosis Aortic valve disorders Shortness of breath documented in this encounter Additional Health Concerns Infection Onset Date Last Indicated Resolved Time COVID-19 Rule Out 09/07/2020 09/07/2020 09/08/2020 5:52 PM BUSINESS ANALYTICS INTERN documented as of this encounter Care Teams Heel Stiffener Relationship Specialty Start Date End Date Megan Infante MD [address] [place] [phone] PCP - General FAMILY PRACTICE 04/06/16 Piyush Pandey MD [place] [employer] Protection Maintainer CARDIOVASCULAR DISEASE 04/06/16 12/28/23 Sharmila Davis, CREDIT SPECIALIST, WASHING MACHINE INSTALLER-C [id number] [place] [phone] NURSE PRACTITIONER 01/04/17 04/03/24 Linda Block MD [address] [address] [employer] [employer] Protection Maintainer CLINICAL CARDIAC ELECTROPHYSIOLOGY 02/08/17 04/12/23 Jeff Grace MD [address] [address] Consulting Physician INTERNAL MEDICINE 02/20/19 3 Zaki Ortiz MD [address] [address] Consulting Physician PULMONARY DISEASE 07/12/19 documented as of this encounter
--- OUTSIDE RECORDS SUMMARY | 2024-09-03 19:14 | XMS_ITS | Encounter Summary ---
Author Organization [facility] Address [address] [place] [address]. [place] [address] [place] [address] Care Team Providers Care Mallet And Die Cutter Name Role Phone Piyush Pandey MD Unavailable Unavailabl e Megan Infante MD Primary Care Provider [phone] Sharmila Davis APRN RV PARTS AND SERVICE DIRECTOR-C Unavailable Linda Block MD Unavailable [phone] Jeff Grace MD Unavailable Zaki Ortiz MD Unavailable [phone] Encounter Details Date Type Department Care Team (Late st Contact Info) Description 03/02/2020 6:36 AM CDT - 03/02/2020 11:59 PM CDT Hospital Encounter [facility] [address] [place] [address] Kilo Navarro MD [address] [place] [address] Discharge Disposition: Home or Self [...] 6 04/11/2019 2 enoxaparin 60 MG/0.6ML Solution 02/23/2020 0 fluticasone propionate 50 MCG/ACT nasal spray 2 [...] 3 pantoprazole EC 40 MG tablet Take 40 mg by mouth daily. 0 pantoprazole EC 40 MG tablet Take 1 [...] st Contact Info) Description 09/25/2024 2:00 PM CHEMISTRY QUALITY CONTROL ANALYST Appointment [facility] [address] [facility] [place] [address] Zayra Powell, CONE TRUCKER [address] [facility] [place], [place] [id number] 10/16/2024 3:30 PM CHEMISTRY QUALITY CONTROL ANALYST Office Visit [facility] [address] [facility] [place] [address] Brit Gonzáles MD [address] [place] [address] documented as of this encounter Procedures Procedure Name Priority Date/Time Associated Diagnosis Comments CORONAVIRUS (COVID 19) Routine 03/02/2020 6:46 AM CDT Pre-operative laboratory examination documented in this encounter Results * PRE-SURGICAL/PRE-PROCEDURE CORONAVIRUS (COVID 19) (03/02/2020 6:46 AM CDT) CORONAVIRUS SARS COV 2 PCR (RESP) NOT DETECTED NOT DETECTED 03/03/2020 8:23 PM CDT [facility] Comment: A Not Detected (negative) test result [...] providers and patients using the following websites: https://www.iPerceptions.PageScience/home/Covid-19/HCP/NAAT/fact-sheet2 https://www.iPerceptions.PageScience/home/Covid-19/Patients/NAAT/ fact-sheet2 This test has been authorized by the FDA under an Emergency Use Authorization (EUA) for use by authorized laboratories. Due to the current public health emergency, [facility] is receiving a high volume of samples [...] Methodology: ??Nucleic Acid Amplification Test (NAAT) includes PCR or TMA Additional information about COVID-19 can be found at the [facility] website: www.BudgetSimple.PageScience/Covid19. Test performed at [facility] [place] [address] [place], [place] ??[phone] Director: REEMA ORDAZ DO,MPH NASOPHARYNGEAL SWAB / Unknown 03/02/2020 6:46 AM CDT Kilo Navarro MD MICROBIOLOGY - GENERAL ORDERA BLES Final Result [facility] [id number] [place] [address] documented in this encounter Visit Diagnoses Diagnosis Pre-operative laboratory examination Pre-procedural laboratory examination documented in this encounter Additional Health Concerns Infection Onset Date Last Indicated Resolved Time COVID-19 Rule Out 03/02/2020 03/02/2020 03/03/2020 8:23 PM CDT documented as of this encounter Care Teams Mallet And Die Cutter Relationship Specialty Start Date End Date Megan Infante MD [address] [facility] [place] [address] PCP - General FAMILY PRACTICE 04/06/16 Piyush Pandey MD [place] Merchandise Planner CARDIOVASCULAR DISEASE 04/06/16 12/28/23 Sharmila Davis, TORCH HEATER, RV PARTS AND SERVICE DIRECTOR-C [address] [facility] [address] [place] [phone] NURSE PRACTITIONER 01/04/17 04/03/24 Linda Block MD [address] [address] [place] Merchandise Planner CLINICAL CARDIAC ELECTROPHYSIOLOGY 02/08/17 04/12/23 Jeff Grace MD [address] [address] Consulting Physician INTERNAL MEDICINE 02/20/19 3 Zaki Ortiz MD [address] [phone] Consulting Physician PULMONARY DISEASE 07/12/19 documented as of this encounter
--- OUTSIDE RECORDS SUMMARY | 2024-09-03 19:14 | XMS_ITS | Encounter Summary ---
Author Organization [facility] Address [facility] [place] [address] [place] [address] Care Team Providers Care Wire Mesh Gate Assembler Name Role Phone Piyush Pandey MD Unavailable Unavailabl e Megan Infante MD Primary Care Provider [phone] Sharmila Davis APRN, NP-C Unavailable Linda Block MD Unavailable [phone] Jeff Grace MD Unavailable Zaki Ortiz MD Unavailable [phone] Reason for Visit * Auth/Cert Specialty Diagnoses / Procedures Referred By Yung sequeira Referred To Contact Diagnoses Dolan's esophagus, dysphagia Procedures EGD WITH DILAT STRICTURE Referral ID Status Reason Start Date Expiration Date Visits Re quested Visits Authorized [id number] 1 1 Encounter Details Date Type Department Care Team (Late st Contact Info) Description 03/05/2020 12:19 PM CDT [place] [address] [place], [place] [address] [address] Jaya Eastman MD [address] [place] [address] Anesthesia Record Procedure Summary Procedure Name Responsible Anesthesiologist Anesthesia Start Time Anesthesia Stop Time EGD with biopsies and dilation (44, 48, 52) (Esophagus) Jaya Eastman MD 03/05/20 1219 03/05/20 1239 Events Date Time Event Comment 03/05/2020 1219 An Start Patient ID and consent checked and patient reassessed. 1219 An Start Data 1221 Nasal Cannula Applied 1221 Anesthesia Ready 1233 Face Mask Applied 1234 1235 an stop data 1239 An Stop 1241 Post Anesthetic Care Handoff I completed my handoff to the receiving nurse during which we: 1. Identified the patient 2. Identified the responsible provider 3. Reviewed the pertinent medical history 4. Discussed the surgical course 5. Reviewed intra-op anesthesia management and issues during anesthesia 6. Set expectations for post-procedure period 7. Allowed opportunity for questions and acknowledgement of understanding. Meds Name Total propofol (DIPRIVAN) 200 mg/20 mL injecti on 250 mg lactated ringers infusion 901.33 mL * Agents Name N2O Ancillary O2 * Blood No blood administrations on file. Lines, Drains, and Airways Type Details Placement Removal Peripheral IV Placement Date: 02/20 12/10; Placement Time: 1018; Placed Outside of This Facility?: No; Size: 20 G; Orientation: Left; Location: Wrist; Site Prep: Alcohol; Local Anesthetic: None; Inserted By: hola sanford; Insertion attempts: 1; Ultrasound-guided Placement?: No; Patient Tolerance: Tolerated well; Removal Date: 03/05/20; Removal Time: 1315; Removal Reason: Patient Discharged 03/05/20 1018 by Bita Link RN 03/05/20 1315 by Mayda Metcalf RN documented in this encounter Social History [...] Postprocedure Evaluation - Jaya Eastman MD - 03/05/2020 12:57 PM CDT Anesthesia Post-op Note M[facility] Lay Procedure(s): EGD with biopsies and dilation (44, 48, 52) (N/A Esophagus) Anesthesia type: MAC Vitals: 03/05/20 1242 BP: 127/71 Vitals: 03/05/20 1242 Pulse: 71 Vitals: 03/05/20 1242 Resp: 18 Vitals: 03/05/20 1242 Temp: 36.5 ??C Vitals: 03/05/20 1242 SpO2: 100% Patient Location: Phase II/Outpatient Level of Consciousness: awake, alert and oriented Pain Management: adequate analgesia Airway Patency: patent Respiratory Status: spontaneous ventilation and acceptable Cardiovascular Status: acceptable, stable and hemodynamically stable Post-Op Nausea: none Postoperative Hydration: euvolemic Complications: no anesthesia complication Comments: Doing well * Anesthesia Preprocedure Evaluation - Jaya Eastman MD - 03/01/2020 11:13 AM CDT Anesthesia ROS/MED History Reviewed: Patient summary , ECG, Family history anesthesia, Anesthesia history , Medications , Labs , Images/Studies Pre-Anesthetic State: alert, awake and responds appropriately Pulmonary (+) COPD, sleep apnea ROS comment: Breathing optimized today. Did not take inhaler today. Cardiovascular Exercise tolerance:good (+) hypertension, Valvular problems/Murmurs, CAD, arrhythmia, (A-fib), Peripheral vascular disease,hyperlipidemia ROS comment: AVR placed 2013 (bovine) Took coreg this AM Off coumadin 1 week, placed on lovenox bridge. Last dose at 7PM last night. Neuro/Psych neg neuro/psych ROS GI/Hepatic/Renal neg GI/hepatic/renal ROS Endo/Other (+) diabetes mellitus, (well controlled), (type 2) Comments: fsbs 100 at home GENERAL COMMENTS Gem: He has an extensive medical history and he will need a thorough examination prior to procedure. ECHO and NM are reassuring, but these were part of a workup for SOB. I did not see pulmonary results ofthis workup. Lungs are clear and patient appears to be in an optimized condition (03/05/2020 at 1105) ECHO 04/2019 Technically difficult study due to body habitus. Mild to moderate concentric left ventricular hypertrophy. The left ventricular systolic function is lower limits of normal. The calculated ejection fraction is 53%. The left atrial volume is moderately increased. Bioprosthetic aortic valve with a peak gradient of 25 mmHg (mean gradient of 14 mmHg). No evidence of aortic regurgitation. Trivial degree of mitral valve stenosis (mean gradient 3 mmHg). Mitral regurgitation, poorly quantitated, possibly trace. Unable to reliably quantitate pulmonary systolic pressure. NM: Abnormal Perfusion Study. No definite ischemia. There is evidence of a large area of moderate intensity fixed defect consistent with infarction in the lateral wall. There is evidence of a medium area of mild to moderate intensity fixed defect consistent with infarction or attenuation in the inferior wall. Left ventricular EF is 53 %. Negative electrocardiographic portion of regadenoson stress test. <Electronic Signature> 06/05/2019 03:43 Physical Evaluation Airway Mallampati: III TM Distance: >3 FB Neck ROM: normal Dental No notable dental history Pulmonary Pulmonary exam normal Breath sounds clear to auscultation Cardiovascular Rhythm: regular Rate: normal Cardiovascular exam normal Anesthesia Plan ASA 4 Intravenous Induction Anesthesia type: MAC Informed Consent Anesthetic plan and risks discussed with patient of whom consent was obtained. . documented in this encounter Plan of Treatment Upcoming Encounters Date Type Department Care Team (Late st Contact Info) Description 09/25/2024 2:00 PM DINKEY OPERATOR SLATE Appointment [facility] [address] [place] [address] Zayra Powell FNP [address] [place] [address] 10/16/2024 3:30 PM DINKEY OPERATOR SLATE Office Visit [facility] [address] [place] [address] Brit Gonzáles MD [address] [place] [address] documented as of this encounter Visit Diagnoses Not on filedocumented in this encounter Administered Medications Inactive Administered Medications - up to 3 most recent administrations Medication Order MAR Action Action Date Dose Rate Site propofol (DIPRIVAN) IV bolus PRN, Starting on Wed03/05/20 at 1222, Until Wed03/05/20 at 1241, Anesthesia Intra-Op Given 03/05/2020 12:26 PM CDT 50 mg Given 03/05/2020 12:24 PM CDT 50 mg Given 03/05/2020 12:22 PM CDT 150 mg documented in this encounter Care Teams Wire Mesh Gate Assembler Relationship Specialty Start Date End Date Megan Infante MD [address] [facility] [place] [address] PCP - General FAMILY PRACTICE 04/06/16 Piyush Pandey MD [place] Neuroscience Director Na CARDIOVASCULAR DISEASE 04/06/16 12/28/23 Sharmila Davis, ORTHOTIC AND PROSTHETIC TECHNICIAN, PROCESSOR SOLID PROPELLANT-C [address] [facility] [address] [place] [phone] NURSE PRACTITIONER 01/04/17 04/03/24 Linda Block MD [address] [facility] [address] [place] [phone] [place] Neuroscience Director Na CLINICAL CARDIAC ELECTROPHYSIOLOGY 02/08/17 04/12/23 Jeff Grace MD [address] [facility] [address] [place] [phone] Consulting Physician INTERNAL MEDICINE 02/20/19 3 Zaki Ortiz MD [address] [facility] [address] [address] Consulting Physician PULMONARY DISEASE 07/12/19 documented as of this encounter
--- OUTSIDE RECORDS SUMMARY | 2024-09-03 19:14 | XMS_ITS | Encounter Summary ---
Author Organization [facility] Address [facility] [place] [address] [place] [address] Care Team Providers Care Ict Managers Name Role Phone Piyush Pandey MD Unavailable Unavailabl e Megan Infante MD Primary Care Provider [phone] Sharmila Davis APRN FARM OWNER OPERATOR-C Unavailable Linda Block MD Unavailable [phone] Jeff Grace MD Unavailable Zaki Ortiz MD Unavailable [phone] Encounter Details Date Type Department Care Team (Late st Contact Info) Description 07/01/2020 Orders Only [facility] [address] [place] [address] Piyush Pandey MD Social History Tobacco Use [...] COVID-19? Unable to assess 06/24/2020 11:52 AM CABLE ENGINEER documented as of this encounter Plan of Treatment Upcoming Encounters Date Type Department Care Team (Late st Contact Info) Description 09/25/2024 2:00 PM CABLE ENG[address]ER Appoint[address] [facility] [address] [place] [address] Andre Zayra K, MANAGER QUANTITATIVE [address] [place] [address] 10/16/2024 3:30 PM CABLE ENGINEER Office Visit [facility] [address] [place] [address] Brit Gonzáles MD [address] [place], [place] [phone] documented as of this encounter Results * PRE-SURGICAL/PRE-PROCEDURE CORONAVIRUS (COVID 19) (07/03/2020 8:55 AM CABLE ENGINEER) CORONAVIRUS SARS COV 2 PCR (RESP) NOT DETECTED NOT DETECTED 07/04/2020 11:25 PM CABLE ENGINEER [facility] Comment: A Not Detected (negative) test [...] providers and patients using the following websites: https://[email or web address]/fact-sheet2 https://www.[email or web address]/home/Covid-[email or web address]/Patients/NAAT/ fact-sheet2 This test has been authorized by the FDA under an Emergency Use Authorization (EUA) for use by authorized laboratories. Due to the current public health emergency, [facility] is receiving a high volume of samples [...] about COVID-19 can be found at the [facility] website: www.K[employer]oonArt/Covid19. Test performed at [facility] ??[phone] Director: REEMA ORDAZ DO,MPH FIRST TEST UNKNOWN 07/03/2020 8:47 AM CABLE ENGINEER [facility] EMPLOYED IN HEALTHCARE UNKNOWN 07/03/2020 8:47 AM CABLE ENGINEER [facility] SYMPTOMATIC DEFINED BY CDC UNKNOWN 07/03/2020 8:47 AM CABLE ENGINEER [facility] DATE OF SYMPTOM ONSET UNKNOWN 07/03/2020 8:57 AM CABLE ENGINEER [facility] HOSPITALIZATION STATUS NO 07/03/2020 8:47 AM CABLE ENGINEER [facility] PATIENT IN ICU NO 07/03/2020 8:47 AM CABLE ENGINEER [facility] RESIDENT OF [facility] UNKNOWN 07/03/2020 8:47 AM CABLE ENGINEER [facility] NOT 07/03/2020 8:57 AM CABLE ENGINEER [facility] PATIENT'S RACE WHITE OR 07/03/2020 8:47 AM CABLE ENGINEER [facility] ETHNICITY NONHISPANIC 07/03/2020 8:47 AM CABLE ENGINEER [facility] SOURCE (QST) NASOPHARYNGEAL SWAB 07/03/2020 8:47 AM CABLE ENGINEER [facility] NASOPHARYNGEAL SWAB / Unknown 07/03/2020 8:55 AM CABLE ENGINEER us Piyush Pandey MD MICROBIOLOGY - GENERAL CLARISSA MCARTHUR Final Result [facility] [address] [place] [address], [facility] [address] [place] [address], documented in this encounter Visit Diagnoses Diagnosis Pre-operative laboratory examination- Primary Pre-procedural laboratory examination documented in this encounter Care Teams Ict Managers Relationship Specialty Start Date End Date Megan Infante MD [address] [place] [address] PCP - General FAMILY PRACTICE 04/06/16 Piyush Pandey MD [place] Part Time Flexible Clerk CARDIOVASCULAR DISEASE 04/06/16 12/28/23 Sharmila Davis APRN, FARM OWNER OPERATOR-C [address] [phone] NURSE PRACTITIONER 01/04/17 04/03/24 Linda Block MD [address] [phone] [place] Part Time Flexible Clerk CLINICAL CARDIAC ELECTROPHYSIOLOGY 02/08/17 04/12/23 Jeff Grace MD [address] [phone] Consulting Physician INTERNAL MEDICINE 02/20/19 3 Zaki Ortiz MD [address] [phone] Consulting Physician PULMONARY DISEASE 07/12/19 documented as of this encounter
--- OUTSIDE RECORDS SUMMARY | 2024-09-03 19:14 | XMS_ITS | Encounter Summary ---
Author Organization [facility] Address [facility] [place] [address] [place] [address] Care Team Providers Care Bag Shaker Name Role Phone Piyush Pandey MD Unavailable Unavailabl e Megan Infante MD Primary Care Provider [phone] Sharmila Davis APRN, UPHOLSTERY ESTIMATOR-C Unavailable [phone] Linda Block MD Unavailable [phone] Jeff Grace MD Unavailable Zaki Ortiz MD Unavailable [phone] Encounter Details Date Type Department Care Team (Latest Contact Info) Description 07/03/2020 Travel Social History Tobacco Use Types Packs/Day [...] COVID-19? No / Unsure 07/03/2020 8:36 AM GEAR MACHINE OPERATOR GENERAL documented as of this encounter Plan of Treatment Upcoming Encounters Date Type Department Care Team (Late st Contact Info) Description 09/25/2024 2:00 PM GEAR MACHINE OPERATOR GENERAL Appointment [facility] [address] [place], [place] [address] Zayra Powell, [facility] [address] [place], [place] [address] 10/16/2024 3:30 PM GEAR MACHINE OPERATOR GENERAL [facility] [address] [place] [address] Brit Gonzáles MD [address] [place] [address] documented as of this encounter Visit Diagnoses Not on filedocumented in this encounter Additional Health Concerns Infection Onset Date Last Indicated Resolved Time COVID-19 Rule Out 07/03/2020 07/03/2020 07/04/2020 11:25 PM GEAR MACHINE OPERATOR GENERAL documented as of this encounter Care Teams Bag Shaker Relationship Specialty Start Date End Date Megan Infante MD [address] [place] [address] PCP - General FAMILY PRACTICE 04/06/16 Piyush Pandey MD [place] Sap Bi Developer CARDIOVASCULAR DISEASE 04/06/16 12/28/23 Sharmila Davis, DANNY, UPHOLSTERY ESTIMATOR-C [address] [facility] [address] [place] [address] NURSE PRACTITIONER 01/04/17 04/03/24 Linda Block MD [address] [facility] [address] [place] [phone] Roby Sap Bi Developer CLINICAL CARDIAC ELECTROPHYSIOLOGY 02/08/17 04/12/23 Jeff Grace MD [address] [facility] [address] [place] [phone] Consulting Physician INTERNAL MEDICINE 02/20/19 3 Zaki Ortiz MD [address] [place] [phone] Consulting Physician PULMONARY DISEASE 07/12/19 documented as of this encounter
--- OUTSIDE RECORDS SUMMARY | 2024-09-03 19:14 | XMS_ITS | Encounter Summary ---
Author Organization [facility] Address [address] [place] [address]. [place] [address] [place] [address] Care Team Providers Care Opening Machine Cleaner Name Role Phone Piyush Pandey MD Unavailable Unavailabl e Megan Infante MD Primary Care Provider [phone] Sharmila Davis APRN, PHYSICAL CHEMIST-C Unavailable [phone] Linda Block MD Unavailable [phone] Jeff Grace MD Unavailable Encounter Details Date Type Department Care Team (Late st Contact Info) Description 06/07/[address] [facility] [place] [address] Hillary Saleh MD [address] [place] [address] Social History Tobacco Use Types Packs/Day Years [...] st Contact Info) Description 09/25/2024 2:[address] [facility] [place] [address] Andre Zayra K, INTERIOR DESIGN CONSULTANT [address] [place] [address] 10/16/2024 3:30 PM RELIEF MAN Office Visit [facility] [address] [place] [address] Brit Gonzáles MD [address] [place] [address] documented as of this encounter Results * (ABNORMAL) PRO-BRAIN NATRIURETIC PEPTIDE (06/07/2019 4:10 PM CDT) Pathologist [facility] PRO-B TYPE NATRIURETIC PEPTIDE 190(H) <125 PG/ML 06/07/2019 4:[address] [facility] Comment: CUT POINTS ESTABLISHED BY [...] OF 89% AND 72% FOR ACUTE CHF. 06/07/2019 4:10 PM CDT Hillary Saleh MD LABORATORY Final Result [facility] [address] [place] [address], * FUNGAL ANTIBODY PANEL 3 (06/07/2019 4:10 PM CDT) Pathologist [facility] HISTOPLASMA AB NEGATIVE NEGATIVE 06/12/2019 9:47 AM CDT [facility] BLASTOMYCES AB NEGATIVE NEGATIVE 06/13/2019 12:04 PM CDT [facility] COCCIDIOIDES AB NEGATIVE NEGATIVE 9 9:47 AM CDT [facility] ASPERGILLUS ANTIBODY NEGATIVE NEGATIVE 06/15/2019 2:49 PM CDT [facility] CRYPTOCOCCAL AG (CSF) NEGATIVE NEGATIVE 06/08/2019 2:46 PM CDT [facility] 06/07/2019 4:10 PM CDT Hillary Saleh MD LABORATORY Final Result [facility] [address] [place] [address], [place] [phone] [id number] * ANGIOTENSIN I ENZYME SERUM (06/07/2019 4:10 PM CDT) STEVIE S/P/B 25 9 - 67 U/L 06/12/2019 5:16 AM CDT [email or web address] MAURA MARTIN Comment: Test Performed by Liberty Martinez, [employer] [facility], [address] [place] [address] Bill Blackmon M.D., Ph.D., Director of Laboratories , [facility] [id number] 06/07/2019 4:10 PM CDT Hillary Saleh MD LABORATORY Final Result Performing Organization Address City/[facility]/ZIP Co de Phone Number [facility]ITAL[facility] [address] [place] [address] , [place] [phone] documented in this encounter Visit Diagnoses Diagnosis Obstructive chronic bronchitis without exacerbation ([facility]/HCC [facility])- Primary Obstructive chronic bronchitis without exacerbation Lung mass Swelling, mass, or lump in chest documented in this encounter Care Teams Opening Machine Cleaner Relationship Specialty Start Date End Date Megan Infante MD [address] [facility] [place] [address] PCP - General FAMILY PRACTICE 04/06/16 Piyush Pandey MD [place] Crime Scene Specialist CARDIOVASCULAR DISEASE 04/06/16 12/28/23 Sharmila Davis APRN, PHYSICAL CHEMIST-C [address] [facility] [address] [place] [address] NURSE PRACTITIONER 01/04/17 04/03/24 Linda Block MD [address] [facility] [address] [place] [phone] [place] Crime Scene Specialist CLINICAL CARDIAC ELECTROPHYSIOLOGY 02/08/17 04/12/23 Jeff Grace MD [address] [facility] [address] [place] [address] Consulting Physician INTERNAL MEDICINE 02/20/19 3 documented as of this encounter
--- OUTSIDE RECORDS SUMMARY | 2024-09-03 19:14 | XMS_ITS | Encounter Summary ---
Author Organization [facility] Address [facility] [place] [address] [place] [address] Care Team Providers Care Nib Finisher Name Role Phone Piyush Pandey MD Unavailable Unavailabl e Megan Infante MD Primary Care Provider [phone] Sharmila Davis APRN, SALES DRIVER-C Unavailable Linda Block MD Unavailable [phone] Jeff Grace MD Unavailable Reason for Visit * Reason Onset Date Comments Follow Up Call 05/11/2019 Encounter Details Date Type Department Care Team ([facility] st Contact Info) Description 05/11/2019 Telephone [facility] [address] [place] [address] Sharmila Davis APRN, SALES DRIVER-C [address] [facility] [address] [place] [address] Follow Up Call Social History Tobacco Use [...] encounter Progress Notes * Sharmila Davis APRN, FLOR-C - 05/11/2019 9:22 AM CDT Spoke with Mr. Lay. He believes he had a little improvement with the increased furosemide. He lost approximately 2 lbs. Now that he has returned to furosemide 40 mg BID and potassium 20 meq BID, he is still short of breath with exertion. His oxygen saturation is 95%. I instructed him to increasehis furosemide to 120 mg daily, and continue his potassium at 20 meq BID. We will recheck a BMP in one week. If no significant improvement, we will then order a pharmacological [place]. If that is normal, then a pulmonary referral. He v/u. documented in this encounter Plan of Treatment Upcoming Encounters Date Type Department Care Team (Late st Contact Info) Description 09/25/2024 2:00 PM CURATOR MEDICAL MUSEUM Appointment [facility] [address] [place] [address] [place] [address] Zayra Powell, TRANSFORMER TESTER [address] [facility] [facility] [place] [address] 10/16/2024 3:30 PM CURATOR MEDICAL MUSEUM Office Visit [facility] [place] [address] Brit Gonzáles MD [address] [place] [address] documented as of this encounter Results * (ABNORMAL) BASIC METABOLIC PANEL (05/22/2019) SODIUM S/P/B 138 136 - 145 POTASSIUM S/P/B 4.5 3.5 - 5.1 CO2 33(A) 21 - 32 CHLORIDE S/P/B 99 98 - 108 GLUCOSE 176(A) 70 - 99 mg/dL CALCIUM S/P/B 9.5 8.5 - 10.1 BUN 31(A) 7 - 18 CREATININE S/P/B 1.38(A) 0.7 - 1.3 EGFR NON-AFR. AMER. 55 05/22/2019 Result [facility] Sharmila Davis APRN, SALES DRIVER-C LABORATORY Final Result documented in this encounter Visit Diagnoses Diagnosis intermission coordinator use of drug- Primary Encounter for long-term (current) use of other medications documented in this encounter Care Teams Nib Finisher Relationship Specialty Start Date End Date Megan Infante MD [address] [facility] [place] [address] PCP - General FAMILY PRACTICE 04/06/16 Piyush Pandey MD [place] Floor Layer Tile CARDIOVASCULAR DISEASE 04/06/16 12/28/23 Sharmila Davis APRN, SALES DRIVER-C [address] [facility] [address] [place] [address] NURSE PRACTITIONER 01/04/17 04/03/24 Linda Block MD [address] [facility] [address] [place] [address] [place] Floor Layer Tile CLINICAL CARDIAC ELECTROPHYSIOLOGY 02/08/17 04/12/23 Jeff Grace MD [address] [facility] [address] [place] [address] Consulting Physician INTERNAL MEDICINE 02/20/19 6 3 documented as of this encounter
--- OUTSIDE RECORDS SUMMARY | 2024-09-03 19:14 | XMS_ITS | Encounter Summary ---
Author Organization [facility] Address [address] [place] [address]. [place] [address] [place] [address] Care Team Providers Care Shank Archer Name Role Phone Piyush Pandey MD Unavailable Unavailabl e Megan Infante MD Primary Care Provider [phone] Sharmila Davis APRN, NP-C Unavailable Linda Block MD Unavailable [phone] Jeff Grace MD Unavailable Zaki Ortiz MD Unavailable [phone] Reason for Visit * Reason Onset Date Comments Neurologic Problem 07/03/2020 Encounter Details Date Type Department Care Team (Late st Contact Info) Description 07/03/2020 Telephone [employer] [facility] [address] [place] [address] Piyush Pandey MD Neurologic Problem Social History Tobacco Use Types Packs/Day [...] COVID-19? No / Unsure 07/03/2020 8:36 AM HIGH SCHOOL COACH documented as of this encounter Progress Notes * Megan Lay RN - 07/10/2020 2:59 PM CST Returned call to Dr. Infante's office. LMTC back. See other encounter. SCHOOL COACH * Bethanie Lay - 07/10/2020 11:[address] Infante's office called regarding medication orders. Please advise. SCHOOL COACH * Megan Lay RN - 07/03/2020 4:37 PM CST Received call from YUNI Cox at [facility]. Pt presented with TIA sxs - dysarthria, AMS, slurred speech, and leg leg weakness (possibly chronic?). [facility] of 3. 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 Pt has been holding Coumadin starting Wednesday for cath on Wednesday. Dr. Pandey discussed with ER physician. Will cancel cath for Wednesday. SCHOOL COACH SCHOOL COACH documented in this encounter Plan of Treatment Upcoming Encounters Date Type Department Care Team (Late st Contact Info) Description 09/25/2024 2:00 PM HIGH SCHOOL COACH Appointment [facility] [address] [place] [address] Zayra Powell, HANDBOOK WRITER [address] [place] [address] 10/16/2024 3:30 PM HIGH SCHOOL COACH Office Visit [facility] [address] [place] [phone] Brit Gonzáles MD [address] [place] [address] documented as of this encounter Visit Diagnoses Not on filedocumented in this encounter Additional Health Concerns Infection Onset Date Last Indicated Resolved Time COVID-19 Rule Out 07/03/2020 07/03/2020 07/04/2020 11:25 PM HIGH SCHOOL COACH documented as of this encounter Care Teams Shank Archer Relationship Specialty Start Date End Date Megan Infante MD [address] [facility] [place] [address] PCP - General FAMILY PRACTICE 04/06/16 Piyush Pandey MD [place] [employer] CARDIOVASCULAR DISEASE 04/06/16 12/28/23 Sharmila Davis APRN, GEOTHERMAL SHEET METAL WORKER-C [address] [facility] [address] [place] [phone] NURSE PRACTITIONER 01/04/17 04/03/24 Linda Block MD [address] [phone] [place] [employer] CLINICAL CARDIAC ELECTROPHYSIOLOGY 02/08/17 04/12/23 Jeff Grace MD [address] [phone] Consulting Physician INTERNAL MEDICINE 02/20/19 3 Zaki Ortiz MD [address] [phone] Consulting Physician PULMONARY DISEASE 07/12/19 documented as of this encounter
--- OUTSIDE RECORDS SUMMARY | 2024-09-03 19:14 | XMS_ITS | Encounter Summary ---
Author Organization [facility] Address [facility] [place] [address] [place] [address] Care Team Providers Care Spinner Tender Name Role Phone Piyush Pandey MD Unavailable Unavailabl e Megan Infante MD Primary Care Provider [phone] Sharmila Davis APRN, ELIGIBILITY CLERK-C Unavailable [phone] Linda Block MD Unavailable [phone] Jeff Grace MD Unavailable Reason for Visit * Reason Onset Date Comments Results 05/05/2019 Encounter Details Date Type Department Care Team ([facility] st Contact Info) Description 05/05/2019 Telephone [facility] [address] [place] [address] Sharmila Davis APRN, ELIGIBILITY CLERK-C [address] [facility] [address] [place] [address] Results Social History Tobacco Use [...] encounter Progress Notes * Sharmila Davis APRN, ELIGIBILITY CLERK-C - 05/05/2019 2:14 PM CDT Spoke with Mendez regarding his labs. No significant abnormalities to explain dyspnea. Continue plan,and call with update Wednesday. He v/u. documented in this encounter Plan of Treatment Upcoming Encounters Date Type Department Care Team (Late st Contact Info) Description 09/25/2024 2:00 PM MOTORCYCLE MECHANIC APPRENTICE Appointment [facility] [address] [facility] [place] [address] Zayra Powell, SEAM RUBBING MACHINE OPERATOR [address] [facility] [address] 10/16/2024 3:30 PM MOTORCYCLE MECHANIC APPRENTICE Office Visit [facility] [address] [facility] [place] [address] Brit Gonzáles MD [address] [place], [place] [address] documented as of this encounter Visit Diagnoses Not on filedocumented in this encounter Care Teams Spinner Tender Relationship Specialty Start Date End Date Megan Infante MD [address] [facility] [place] [address] PCP - General FAMILY PRACTICE 04/06/16 Piyush Pandey MD [place] Wood Room Supervisor CARDIOVASCULAR DISEASE 04/06/16 12/28/23 Sharmila Davis APRN, ELIGIBILITY CLERK-C [address] [facility] [address] [place] [address] NURSE PRACTITIONER 01/04/17 04/03/24 Linda Block MD [address] [facility] [address] [phone] [place] Wood Room Supervisor CLINICAL CARDIAC ELECTROPHYSIOLOGY 02/08/17 04/12/23 Jeff Grace MD [address] [place] [address] Consulting Physician INTERNAL MEDICINE 02/20/19 3 documented as of this encounter
--- OUTSIDE RECORDS SUMMARY | 2024-09-03 19:14 | XMS_ITS | Encounter Summary ---
Author Organization [facility] Address [address] [place] [address]. [place] [address] [place] [address] Care Team Providers Care Ward Maid Name Role Phone Piyush Pandey MD Unavailable Unavailabl e Megan Infante MD Primary Care Provider [phone] Sharmila Davis APRN, POLICE AIDE-C Unavailable [phone] Linda Block MD Unavailable [phone] Jeff Grace MD Unavailable Zaki Ortiz MD Unavailable [phone] Encounter Details Date Type Department Care Team (Latest Contact Info) Description 09/10/2020 Travel Social History Tobacco Use Types Packs/Day [...] COVID-19? No / Unsure 09/10/2020 7:25 AM MEDICAL RECRUITER documented as of this encounter Plan of Treatment Upcoming Encounters Date Type Department Care Team (Late st Contact Info) Description 09/25/2024 2:00 PM MEDICAL RECRUITER Appointment [facility] [address] [place] [address] Zayra Powell, [facility] [address] [facility] [place] [address] 10/16/2024 3:30 PM MEDICAL RECRUITER Office [facility] [place] [facility] [address] [place] [phone] Brit Gonzáles MD [address] [place], [place] [address] documented as of this encounter Visit Diagnoses Not on filedocumented in this encounter Care Teams Ward Maid Relationship Specialty Start Date End Date Megan Infante MD [address] [facility] [place] [phone] PCP - General FAMILY PRACTICE 04/06/16 Piyush Pandey MD [place] CARDIOVASCULAR DISEASE 04/06/16 12/28/23 Sharmila Davis, BOOKING PRIZER, POLICE AIDE-C [address] [facility] [address] [place] [phone] NURSE PRACTITIONER 01/04/17 04/03/24 Linda Block MD [address] [facility] [address] [place] [phone] [place] CLINICAL CARDIAC ELECTROPHYSIOLOGY 02/08/17 04/12/23 Jeff Grace MD [address] [facility] [address] [place] [phone] Consulting Physician INTERNAL MEDICINE 02/20/19 6 3 Zaki Ortiz MD [address] [facility] [address] [place] [address] Consulting Physician PULMONARY DISEASE 07/12/19 documented as of this encounter
--- OUTSIDE RECORDS SUMMARY | 2024-09-03 19:14 | XMS_ITS | Encounter Summary ---
Author Organization [facility] Address [facility] [place] [address] [place] [address] Care Team Providers Care Dukey Rider Name Role Phone Piyush Pandey MD Unavailable Unavailabl e Megan Infante MD Primary Care Provider [phone] Sharmila Davis APRN, ACTUARIAL ASSISTANT-C Unavailable Linda Block MD Unavailable [phone] Jeff Grace MD Unavailable Zaki Ortiz MD Unavailable [phone] Encounter Details Date Type Department Care Team (Late Contact Info) Description 09/06/2019 Orders Only [facility] [address] [facility] [place] [address] Hillary Saleh MD [address] [place] [address] Social History Tobacco Use Types [...] (Late Contact Info) Description 09/25/2024 2:00 PM SENIOR COUNSEL COMMERCIAL Appointment [facility] [address] [place] [address] Zayra Powell, OXYGEN THERAPIST [address] [place] [address] 10/16/2024 3:30 PM SENIOR COUNSEL COMMERCIAL Office Visit [facility] [address] [place] [phone] Brit Gonzáles MD [address] [place] [address] documented as of this encounter Results * TBGOLD-TUBERCULOSIS TST CELL MEDIATED IMMUNITY (09/06/2019 1:30 PM SENIOR COUNSEL COMMERCIAL) [facility] TB INTERPRETATION NEGATIVE 020 1:12 PM SENIOR COUNSEL COMMERCIAL [facility] Comment:NEGATIVE: No immune response to Mycobacterium tuberculosis noted. TB1 AG MINUS NIL 0.02 IU/ML 09/08/19 1:12 PM SENIOR COUNSEL COMMERCIAL [facility] TB2 AG MINUS NIL 0.01 IU/ML 09/08/19 1:12 PM SENIOR COUNSEL COMMERCIAL [facility] Comment: This test was automated and its characteristics determined by the [facility] of [facility]. Automated versions of this test have not been cleared or approved by the FDA. This laboratory is regulated under CLIA as qualified to perform high complexity testing. This test is used for clinical purposes. It should not be regarded as investigational or for research. 09/06/2019 1:30 PM SENIOR COUNSEL COMMERCIAL Hillary Saleh MD LABORATORY Final Result [facility] [address] [place] [address], [id number] * FUNGAL ANTIBODY PANEL 3 (09/06/2019 1:30 PM SENIOR COUNSEL COMMERCIAL) Pathologist [facility] HISTOPLASMA AB NEGATIVE NEGATIVE 09/11/2019 10:30 AM SENIOR COUNSEL COMMERCIAL [facility] BLASTOMYCES AB NEGATIVE NEGATIVE 09/12/2019 2:10 PM SENIOR COUNSEL COMMERCIAL [facility] COCCIDIOIDES AB NEGATIVE NEGATIVE 0 10:30 AM SENIOR COUNSEL COMMERCIAL [facility] ASPERGILLUS ANTIBODY NEGATIVE NEGATIVE 09/14/2019 11:31 AM SENIOR COUNSEL COMMERCIAL [facility] CRYPTOCOCCAL AG (CSF) NEGATIVE NEGATIVE 09/07/2019 1:51 PM SENIOR COUNSEL COMMERCIAL [facility] 09/06/2019 1:30 PM SENIOR COUNSEL COMMERCIAL Hillary Saleh MD LABORATORY Final Result [facility] [address] [place] [address], [id number] documented in this encounter Visit Diagnoses Diagnosis Ground glass opacity present on imaging of lung- Primary documented in this encounter Care Teams Dukey Rider Relationship Specialty Start Date End Date Megan Infante MD [address] [place] [address] PCP - General FAMILY PRACTICE 04/06/16 Piyush Pandey MD Brighton Manager Presentation CARDIOVASCULAR DISEASE 04/06/16 12/28/23 Sharmila Davis, VALVE REPAIRER RECLAMATION, ACTUARIAL ASSISTANT-C [address] [facility] [address] [place] [address] NURSE PRACTITIONER 01/04/17 04/03/24 Linda Block MD [address] [facility] [address] [place] [address] Brighton Manager Presentation CLINICAL CARDIAC ELECTROPHYSIOLOGY 02/08/17 04/12/23 Jeff Grace MD [address] [facility] [address] [place] [phone] Consulting Physician INTERNAL MEDICINE 02/20/19 3 Zaki Ortiz MD [address] [place] [phone] Consulting Physician PULMONARY DISEASE 07/12/19 documented as of this encounter
--- OUTSIDE RECORDS SUMMARY | 2024-09-03 19:14 | XMS_ITS | Encounter Summary ---
Author Organization [facility] Address [address] [place] [address]. [place] [address] [place] [address] Care Team Providers Care Bale Stacker Name Role Phone Piyush Pandey MD Unavailable Unavailabl e Megan Infante MD Primary Care Provider [phone] Sharmila Davis APRN, NP-C Unavailable [phone] Linda Block MD Unavailable [phone] Jeff Grace MD Unavailable Zaki Ortiz MD Unavailable [phone] Reason for Visit * Reason Onset Date Comments Schedule Procedure 06/28/2020 Cath Encounter Details Date Type Department Care Team (Late st Contact Info) Description 06/28/2020 Telephone [facility] [address] [place] [phone] Piyush Pandey MD Schedule Procedure (Cath) Social History Tobacco Use Types Packs/Day Years [...] COVID-19? Unable to assess 06/24/2020 11:52 AM RETAIL WIRELESS SALES REPRESENTATIVE documented as of this encounter Progress Notes * Megan Lay RN - 06/28/2020 3:36 PM CST R/LHC scheduled for 07/05 at 9:00am. Pt aware of date/time and instructions. Letter sent. [place] WIRELESS SALES REPRESENTATIVE documented in this encounter Plan of Treatment Upcoming Encounters Date Type Department Care Team (Late st Contact Info) Description 09/25/2024 2:00 PM RETAIL WIRELESS SALES REPRESENTATIVE Appointment [facility] [address] [facility] [place] [address] Zayra Powell, TURBOGENERATOR OPERATOR [address] [facility] [place] [address] 10/16/2024 3:30 PM RETAIL WIRELESS SALES REPRESENTATIVE Office Visit [facility] [place] [address] Brit Gonzáels MD [address] [place] [address] documented as of this encounter Results * (ABNORMAL) PROTIME/INR, VENOUS (07/03/2020 8:54 AM RETAIL WIRELESS SALES REPRESENTATIVE) PROTIME 19.1(H) 9.4 - 12.5 SEC 07/03/2020 9:27 AM RETAIL WIRELESS SALES REPRESENTATIVE [facility] INR 1.7(H) 0.9 - 1.1 07/03/2020 9:27 AM RETAIL WIRELESS SALES REPRESENTATIVE [facility] 07/03/2020 8:54 AM RETAIL WIRELESS SALES REPRESENTATIVE us Piyush Pandey MD LABORATORY Final Resul t [facility] [address] [place] [address], * MAGNESIUM (07/03/2020 8:54 AM RETAIL WIRELESS SALES REPRESENTATIVE) MAGNESIUM 2.2 1.8 - 2.4 MG/DL 07/03/2020 9:13 AM [facility] 07/03/2020 8:54 AM RETAIL WIRELESS SALES REPRESENTATIVE us Piyush Pandey MD LABORATORY Final Resul t [facility] [address] [place] [address], * (ABNORMAL) CBC W/DIFF AUTOMATED (07/03/2020 8:54 AM RETAIL WIRELESS SALES REPRESENTATIVE) WBC 9.9 4.5 - 10.8 x10'3/uL 07/03/2020 9:00 AM [facility] RBC 4.37(L) 4.50 - 6.10 x10'6/uL 07/03/2020 9:00 AM [facility] HGB 12.2(L) 13.0 - 18.0 G/DL 07/03/2020 9:00 AM [facility] HCT 38.7 37.0 - 52.0 % 07/03/2020 9:00 AM [facility] MCV 88.6 78.0 - 100.0 FL 07/03/2020 9:00 AM [facility] MCH 27.9 27.0 - 31.0 PG 07/03/2020 9:00 AM [facility] MCHC 31.5(L) 33.0 - 36.0 G/DL 07/03/2020 9:00 AM [facility] RDW 14.4 11.5 - 14.5 % 07/03/2020 9:00 AM [facility] PLT 243 150 - 350 x10'3/uL 07/03/2020 9:00 AM [facility] MPV 9.7 7.4 - 10.4 FL 07/03/2020 9:00 AM [facility] DIFFERENTIAL COMMENT NORMAL REFERENCE RANGE NOT ESTABLISHED FOR THE PROPORTIONAL LEUKOCYTE DIFFERENTIAL. 07/03/2020 9:00 AM [facility] SEG NEUTROPHILS 59.9 % 0 9:00 AM RETAIL WIRELESS SALES REPRESENTATIVE [facility] LYMPHOCYTES 22.6 % 07/03/2020 9:00 AM [facility] MONOCYTES 11.3 % 07/03/2020 9:00 AM [facility] EOSINOPHILS 5.3 % 07/03/2020 9:00 AM [facility] BASOPHILS 0.5 % 07/03/2020 9:00 AM [facility] IMMATURE GRANS % 0.4 % 07/03/20 20 9:00 AM RETAIL WIRELESS SALES REPRESENTATIVE [facility] NRBC 0.0 % 07/03/2020 9:00 AM [facility] ABS. NEUTROPHILS 5.93 1.60 - 8.30 x10'3/uL 07/03/2020 9:00 AM [facility] ABS. LYMPHOCYTES 2.24 0.80 - 4.70 x10'3/uL 07/03/2020 9:00 AM [facility] ABS. MONOCYTES 1.12 0.00 - 1.50 x10'3/uL 07/03/2020 9:00 AM [facility] ABS. EOSINOPHILS 0.53(H) 0.00 - 0.40 x10'3/uL 07/03/2020 9:00 AM [facility] ABS. BASOPHILS 0.05 0.00 - 0.20 x10'3/uL 07/03/2020 9:00 AM [facility] ABS. IMMATURE GRANULOCYTES 0.04(H) 0.00 - 0.03 x10'3/uL 07/03/2020 9:00 AM [facility] ABS. NUCLEATED RBC'S 0.00 0.00 x10'3/uL 07/03/2020 9:00 AM [facility] 07/03/2020 8:54 AM RETAIL WIRELESS SALES REPRESENTATIVE us Piyush Pandey MD LABORATORY Final Resul t [facility] [address] [place] [address], * (ABNORMAL) BASIC METABOLIC PANEL (07/03/2020 8:[address] [facility]) SODIUM S/P/B 133(L) 136 - 145 MMOL/L 07/03/2020 9:13 AM [facility] POTASSIUM S/P/B 4.4 3.5 - 5.1 MMOL/L 07/03/2020 9:13 AM [facility] CHLORIDE S/P/B 95(L) 98 - 107 MMOL/L 07/03/2020 9:13 AM [facility] CO2 32.4(H) 21.0 - 32.0 MMOL/L 07/03/2020 9:13 AM [facility] GLUCOSE 161(H) 70 - 99 MG/DL 07/03/2020 9:13 AM [facility] Comment: FASTING GLUCOSE 100 TO 125 MG/DL IS CONSISTENT WITH IMPAIRED FASTING GLUCOSE. FASTING GLUCOSE >125 MG/DL IS CONSISTENT WITH DIABETES. RANDOM GLUCOSE >200 MG/DL WITH HYPERGLYCEMIC SYMPTOMS IS CONSISTENT WITH DIABETES. PER ADA GUIDELINES BUN 30(H) 6 - 24 MG/DL 07/03/2020 9:13 AM [facility] CREATININE S/P/B 1.92(H) 0.70 - 1.30 MG/DL 07/03/2020 9:13 AM [facility] CALCIUM S/P/B 10.1 8.4 - 10.5 MG/DL 07/03/2020 9:13 AM [facility] ANION GAP 5.6 5.0 - 15.0 MMOL/L 07/03/2020 9:13 AM [facility] OSMOLALITY (CALC) 286 MOSM/KG 020 9:13 AM [facility] Comment:REFERENCE RANGE NOT ESTABLISHED EGFR NON-AFR. AMER. 36(L) >89 ML/MIN/1. 73 M2 07/03/2020 9:13 AM [facility] EGFR AFR. AMER. 41(L) >89 ML/MIN/1. 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 S/P aortic valve replacement with bioprosthetic valve Heart valve replaced by other means Aortic stenosis Aortic valve disorders Chronic atrial fibrillation ([facility]) Atrial fibrillation documented in this encounter Care Teams Bale Stacker Relationship Specialty Start Date End Date Megan Infante MD [address] [facility] [place] [phone] PCP - General FAMILY PRACTICE 04/06/16 Piyush Pandey MD [place] Relations Mgr CARDIOVASCULAR DISEASE 04/06/16 12/28/23 Sharmila Davis APRN, COURT MAGISTRATE-C [address] [facility] [address] [place] [phone] NURSE PRACTITIONER 01/04/17 04/03/24 Linda Block MD [address] [facility] [address] [place] [address] [place] Relations Mgr CLINICAL CARDIAC ELECTROPHYSIOLOGY 02/08/17 04/12/23 Jeff Grace MD [address] [place] [phone] Consulting Physician INTERNAL MEDICINE 02/20/19 3 Zaki Ortiz MD [address] [place] [phone] Consulting Physician PULMONARY DISEASE 07/12/19 documented as of this encounter
--- OUTSIDE RECORDS SUMMARY | 2024-09-03 19:14 | XMS_ITS | Encounter Summary ---
Author Organization [facility] Address [address] [place] [address]. [place] [address] [place] [address] Care Team Providers Care Object Oriented Developer Name Role Phone Piyush Pandey MD Unavailable Unavailabl e Megan Infante MD Primary Care Provider [phone] Sharmila Davis APRN, NP-C Unavailable [phone] Linda Block MD Unavailable [phone] Jeff Grace MD Unavailable Zaki Ortiz MD Unavailable [phone] Reason for Visit * Reason Onset Date Comments Appointment Request 04/11/2020 Encounter Details Date Type Department Care Team (Late st Contact Info) Description 04/11/2020 [facility]phone [facility] [address] [place] [address] Piyush Pandey MD Appointment Request [...] encounter Progress Notes * Lavern Marley - 04/11/2020 12:43 PM CDT Patient called to schedule a f/u appt. appt scheduled, letter mailed. documented in this encounter Plan of Treatment Upcoming Encounters Date Type Department Care Team (Late st Contact Info) Description 09/25/2024 2:[address] [facility] [address] [facility] [place] [address] Zayra Powell, KENNEL ASSISTANT [address] [facility] [place] [address] 10/16/2024 3:30 PM BLINDMAKER Office Visit [facility] [address] [facility] [place] [address] Brit Gonzáles MD [address] [place] [address] documented as of this encounter Visit Diagnoses Not on filedocumented in this encounter Care Teams Object Oriented Developer Relationship Specialty Start Date End Date Megan Infante MD [address] [facility] [place] [address] PCP - General FAMILY PRACTICE 04/06/16 Piyush Pandey MD [place] Profiling Machine Operator CARDIOVASCULAR DISEASE 04/06/16 12/28/23 Sharmila Davis, INTERNATIONAL MARKETING MANAGER, FARM CONSULTANT-C [address] [facility] [address] [place] [address] NURSE PRACTITIONER 01/04/17 04/03/24 Linda Block MD [address] [facility] [address] [place] [address] [place] Profiling Machine Operator CLINICAL CARDIAC ELECTROPHYSIOLOGY 02/08/17 04/12/23 Jeff Grace MD [address] [facility] [address] [place] [phone] Consulting Physician INTERNAL MEDICINE 02/20/19 3 Zaki Ortiz MD [address] [place] [phone] Consulting Physician PULMONARY DISEASE 07/12/19 documented as of this encounter
--- OUTSIDE RECORDS SUMMARY | 2024-09-03 19:14 | XMS_ITS | Encounter Summary ---
Author Organization [facility] Address [facility] [address] [place] [address] Care Team Providers Care Copywriting Intern Name Role Phone Piyush Pandey MD Unavailable Unavailabl e Megan Infante MD Primary Care Provider [phone] Sharmila Davis APRN BUFFERER-C Unavailable Linda Block MD Unavailable [phone] Jeff Grace MD Unavailable Zaki Ortiz MD Unavailable [phone] Reason for Visit * Auth/Cert Specialty Diagnoses / Procedures Referred By Yung sequeira Referred To Contact Diagnoses Dolan's esophagus, dysphagia Procedures EGD WITH DILAT STRICTURE Referral ID Status Reason Start Date Expiration Date Visits Re quested Visits Authorized [id number] 1 1 Encounter Details Date Type Department Care Team (Late st Contact Info) Description 03/05/2020 12:05 PM CDT - 03/05/2020 12:[address] [facility] [address] [place] [address] Gloria Navarro MD [address] [place] [address] EGD with biopsies and dilation (44, 48, 52) Surgery Details Date/Time Status Location OR Service Patient Class Case Class Case Type Trauma Case? 03/05/2020 12:05 PM Posted [facility] OR Endo Gastroenterology Short Stay/Outpa tient Surgery No Panel 1 Procedure LRB Anes Op Region Wound Class Comments EGD with biopsies and dilation (44, 48, 52) N/A Monitor Anesthesia Care Esophagus Clean Contaminated Surgeon Surgeon Role Service Panel [...] Sign Reading Time Taken Comments Blood Pressure 126/71 03/05/2020 10:16 AM CDT Pulse 82 03/05/2020 10:16 AM CDT Temperature 35.9 ??C (96.6 ??F) 03/05/2020 10:16 AM C DT Respiratory Rate 16 03/05/2020 10:16 AM CDT Oxygen Saturation 99% 03/05/2020 10:16 AM CDT Inhaled Oxygen Concentration - - Weight 97.5 kg (215 lb) 02/27/2020 2:47 PM CDT Height 170.2 cm (5' 7 ) 02/27/2020 2:47 PM CDT Body Mass Index 33.67 02/27/2020 2:47 PM CDT documented in this encounter Discharge Instructions * Attachments The following attachments cannot be sent through Care Everywhere. * Dolan's Esophagus Discharge Instructions (Bermudian) * Gastritis Discharge Instructions (Bermudian) * Ulcer and Gastritis Diet (Bermudian) * Upper GI Endoscopy Discharge Instructions (Bermudian) * Monitored Anesthesia Care (Bermudian) documented in this encounter Medications at Time [...] st Contact Info) Description 09/25/2024 2:00 PM PRINTING TABLE WORKER Appointment [facility] [address] [place] [address] Zayra Powell, [facility] [address] [place] [address] 10/16/2024 3:30 PM PRINTING TABLE WORKER Office Visit [facility] [address] [facility] [place] [address] Brit Gonzáles MD [address] [place] [address] documented as of this encounter Procedures Procedure [...] DESCRIPTION GASTRIC BIOPSY 03/05/2020 12:35 PM CDT [facility] SPECIAL REQUESTS NO SPECIAL REQUEST 03/05/2020 12:35 PM CDT [facility] DIRECT EXAM PRESUMPTIVE NEGATIVE FOR H. PYLORI 03/05/2020 4:55 PM CDT [facility] Tissue specimen (specimen) GASTRIC BIOPSY SPECIMEN / Unknown 03/05/2020 12:24 PM CDT us Gloria Navarro MD MICROBIOLOGY - GENERAL ORDERA BLES Final Result [facility] [address] [place] [address], * Pathology (03/05/2020 12:00 AM CDT) PATHOLOGY [facility] ? Department of Laboratory Medicine ?[address] [facility] ?[place] [address] ? , extension [phone] ? Pathology Report ? Surgical Pathology Report Name: OBIE SIMS ?Specimen #: [id number] Age: 12 1955 (Age: 64) ? Location: [facility] Sex: M ?Procedure Date: 03/05/2020 Hospital #: [id number] ?Date Received: 03/06/2020 Date Reported: 03/07/2020 Provider: [...] Electronically Signed Out ? Michael Shetty M.D. [facility] Tissue specimen (specimen) STOMACH STRUCTURE / Unknown 03/05/2020 12:24 PM CDT Tissue specimen (specimen) ESOPHAGEAL STRUCTURE / Unknown 03/05/2020 12:26 PM CDT Gloria Navarro MD PATHOLOGY/CYTOLOGY ORDERABLES Final Result [facility] [address] [place] [id number], [id number] documented in this encounter Visit Diagnoses Not [...] needed, Nausea, Vomiting, 1 dose, Starting on e 03/05/20 at 1243, Until 03/05/20 at 1522, [...] needed, Nausea, Vomiting, 1 dose, Starting on e 03/05/20 at 1243, Until 03/05/20 at 1522, [...] PACU documented in this encounter Care Teams Copywriting Intern Relationship Specialty Start Date End Date Megan Infante MD [address] [facility] [address] PCP - General FAMILY PRACTICE 04/06/16 Piyush Pandey MD [place] Draper[employer] Sewer Hand CARDIOVASCULAR DISEASE 04/06/16 12/28/23 Sharmila Davis APRN, BUFFERER-C [address] [address] NURSE PRACTITIONER 01/04/17 04/03/24 Linda Blcok MD [address] [phone] [place] [employer] Sewer Hand CLINICAL CARDIAC ELECTROPHYSIOLOGY 02/08/17 04/12/23 Jeff Grace MD [address] [phone] Consulting Physician INTERNAL MEDICINE 02/20/19 3 Zaki Ortiz MD [address] [phone] Consulting Physician PULMONARY DISEASE 07/12/19 documented as of this encounter
--- OUTSIDE RECORDS SUMMARY | 2024-09-03 19:14 | XMS_ITS | Encounter Summary ---
Author Organization [facility] Address [facility] [place] [address] [place] [address] Care Team Providers Care Chainstitch Zipper Setter Name Role Phone Piyush Pandey MD Unavailable Unavailabl e Megan Infante MD Primary Care Provider [phone] Sharmila Davis APRN RADIOLOGICAL METALLURGIST-C Unavailable Linda Block MD Unavailable [phone] Jeff Grace MD Unavailable Zaki Ortiz MD Unavailable [phone] Encounter Details Date Type Department Care Team (Late st Contact Info) Description 09/05/2020 Orders Only [facility] Devulcanizer Operator [address] [place] [address] Piyush Pandey MD Social History Tobacco Use [...] st Contact Info) Description 09/25/2024 2:00 PM DROP CLIPPER Appointment [facility] [address] [place] [address] Zayra Powell Oli, CLUBHOUSE ATTENDANT [address] [place] [address] 10/16/2024 3:30 PM DROP CLIPPER Office Visit [facility] [address] [facility] [phone] Brit Gonzáles MD [address] [place] [address] documented as of this encounter Results * PRE-SURGICAL/PRE-PROCEDURE CORONAVIRUS (COVID 19) (09/07/2020 8:40 AM DROP CLIPPER) CORONAVIRUS SARS COV 2 PCR (RESP) NOT DETECTED NOT DETECTED 09/08/2020 5:52 PM DROP CLIPPER [facility] Comment: A Not Detected (negative) test [...] providers and patients using the following websites: https://www.mSilica.com/home/Covid-19/HCP/NAAT/fact-sheet2 https://www.mSilica.Simbiosis/home/Covid-19/Patients/NAAT/ fact-sheet2 This test has been authorized by the FDA under an Emergency Use Authorization (EUA) for use by authorized laboratories. Due to the current public health emergency, [facility] is receiving a high volume of samples [...] about COVID-19 can be found at the [employer] website: www.Virtual View App.Simbiosis/Covid19. Test performed at [facility] [address] [place] [address] ??[phone] Director: REEMA ORDAZ DO,MPH FIRST TEST UNKNOWN 09/07/2020 8:37 AM DROP CLIPPER [facility] EMPLOYED IN HEALTHCARE NO 09/07/2020 8:37 AM DROP CLIPPER [facility] SYMPTOMATIC DEFINED BY CDC UNKNOWN 09/07/2020 8:37 AM DROP CLIPPER [facility] DATE OF SYMPTOM ONSET UNKNOWN 09/07/2020 8:49 AM DROP CLIPPER [facility] HOSPITALIZATION STATUS NO 09/07/2020 8:37 AM DROP CLIPPER [facility] PATIENT IN ICU NO 09/07/2020 8:37 AM DROP CLIPPER [facility] RESIDENT OF [facility] NO 09/07/2020 8:37 AM DROP CLIPPER [facility] NOT 09/07/2020 8:49 AM DROP CLIPPER [facility] PATIENT'S RACE WHITE OR 09/07/2020 8:37 AM DROP CLIPPER [facility] ETHNICITY NONHISPANIC 09/07/2020 8:37 AM DROP CLIPPER [facility] SOURCE (QST) NASOPHARYNGEAL SWAB 09/07/2020 8:37 AM DROP CLIPPER [facility] NASOPHARYNGEAL SWAB / Unknown 09/07/2020 8:40 AM DROP CLIPPER us Piyush Pandey MD MICROBIOLOGY - GENERAL ORDE LYUBOV Final Result [facility] [address] [place] [address], [facility] [address] [address], documented in this encounter Visit Diagnoses Diagnosis Pre-operative laboratory examination- Primary Pre-procedural laboratory examination documented in this encounter Care Teams Chainstitch Zipper Setter Relationship Specialty Start Date End Date Megan Infante MD [address] [place] [address] PCP - General FAMILY PRACTICE 04/06/16 Piyush Pandey MD [place] Sports Reporter CARDIOVASCULAR DISEASE 04/06/16 12/28/23 Sharmila Davis, [place] GOLD ATTENDANT, RADIOLOGICAL METALLURGIST-C [address] [facility] [address] [place] [phone] NURSE PRACTITIONER 01/04/17 04/03/24 Linda Block MD [address] [address] [place] Sports Reporter CLINICAL CARDIAC ELECTROPHYSIOLOGY 02/08/17 04/12/23 Jeff Grace MD [address] [address] Consulting Physician INTERNAL MEDICINE 02/20/19 3 Zaki Ortiz MD [address] [phone] Consulting Physician PULMONARY DISEASE 07/12/19 documented as of this encounter
--- OUTSIDE RECORDS SUMMARY | 2024-09-03 19:14 | XMS_ITS | Encounter Summary ---
Author Organization [facility] Address [facility] [place] [address] [place] [address] Care Team Providers Care On Air Announcer Name Role Phone Piyush Pandey MD Unavailable Unavailabl e Megan Infante MD Primary Care Provider [phone] Sharmila Davis APRN, NP-C Unavailable [phone] Linda Block MD Unavailable [phone] Jeff Grace MD Unavailable Reason for Referral * Imaging (Routine) - Closed Specialty Diagnoses / Procedures Referred By Contac t Referred To Contact RADIOLOGY Diagnoses SOB (shortness of breath) Atherosclerosis of [place] coronary artery of [place] heart, angina presence unspecified Procedures NM PHARM NUC STRESS TEST 1DAY Sharmila Davis APRN, NP-C [address] [facility] [address] [place] [address] Phone: tel: fax: Referral ID Status Reason Start Date Expiration Date Visits Re quested Visits Authorized [id number] Closed 05/26/2019 06/25/2020 1 1 Reason for Visit * Reason Onset Date Comments Follow Up Call 05/25/2019 Schedule Test 05/25/2019 Rega Nuc. Encounter Details Date Type Department Care Team ([facility] Contact Info) Description 05/25/2019 Telephone [facility] [address] [place] [phone] Sharmila Davis, SCIENTIFIC INFORMATICS ANALYST, SNOW TECHNICIAN-C [address] [facility] [address] [place] [address] Follow Up Call; Schedule Test (Rega Nuc. ) Social History Tobacco Use Types Packs/Day [...] as of this encounter Progress Notes * Maria Del Carmen Belcher LPN - 05/26/2019 10:00 AM CDTAddended by: MARIA DEL CARMEN BELCHER on: 05/26/2019 10:00 AM Modules accepted: Orders * Maria Del Carmen Belcher LPN - 05/26/2019 9:48 AM CDT Called patients home phone number and daughter Bonnie answered. Patient was at a doctors appointment . Made daughter aware that pharmalogical stress test is scheduled for 06/05/2019 at [facility] . Patient is to arrive by 7:45 am . Patient to avoid caffeine for 12 hours prior, nothing to eat or drink 4 hours prior to and patient is to hold diabetic medications morning of. Informed daughter that I will also be mailing appointment letter with instructions to patient. Daughter verbalized understanding and will relay message to her father when he gets home. * Maria Del Carmen Belcher LPN - 05/26/2019 9:35 AM CDTAddended by: MARIA DEL CARMEN BELCHER on: 05/26/2019 09:35 AM Modules accepted: Orders * Sharmila Davis APRN, STER[place]ING - 05/25/2019 5:29 PM CDT Spoke with Mr. Lay. He is still short of breath with minimal exertion. His labs were stable. He has not noticed much of a difference with the increased furosemide. Therefore, we will order a stress test to rule out an ischemic cause. He will also f/u with his PCP tomorrow and arrange a pulmonaryreferral. He v/u. documented in this encounter Plan of Treatment Upcoming Encounters Date Type Department Care Team (Late st Contact Info) Description 09/25/2024 2:00 PM CLAIMS ADJUSTER SUPERVISOR Appointment [facility] [address] [place] [address] Zayra Powell, [facility] [address] [place] [address] 10/16/2024 3:30 PM CLAIMS ADJUSTER SUPERVISOR Office Visit [facility] [address] [place] [address] Brit Gonzáles MD [address] [place], [place] [phone] documented as of this encounter Results * NM PHARM NUC STRESS TEST 1DAY (06/05/2019) Anatomical Region Laterality Modality Cardiac Nuclear Medicine us STERLING Guillen APRN NUC MED Final Result documented in this encounter Visit Diagnoses Diagnosis SOB (shortness of breath)- Primary Shortness of breath Atherosclerosis of [place] coronary artery of [place] heart, angina presence unspecified documented in this encounter Care Teams On Air Announcer Relationship Specialty Start Date End Date Megan Infante MD [address] [place] [address] PCP - General FAMILY PRACTICE 04/06/16 Piyush Pandey MD [place] Aircraft Dispatcher CARDIOVASCULAR DISEASE 04/06/16 12/28/23 Sharmila Davis, DANNY, SNOW TECHNICIAN-C [address] [facility] [address] [place] [address] NURSE PRACTITIONER 01/04/17 04/03/24 Linda Block MD [address] [facility] [address] [place] [address] [place] Aircraft Dispatcher CLINICAL CARDIAC ELECTROPHYSIOLOGY 02/08/17 04/12/23 Jeff Grace MD [address] [facility] [address] [place] [phone] Consulting Physician INTERNAL MEDICINE 02/20/19 3 documented as of this encounter
--- OUTSIDE RECORDS SUMMARY | 2024-09-03 19:14 | XMS_ITS | Encounter Summary ---
Author Organization [facility] Address [address] [place] [address]. [place] [address] [place] [address] Care Team Providers Care It Consulting Director Name Role Phone Piyush Pandey MD Unavailable Unavailabl e Megan Infante MD Primary Care Provider [phone] Sharmila Davis APRN, NP-C Unavailable Linda Block MD Unavailable [phone] Jeff Grace MD Unavailable Zaki Ortiz MD Unavailable [phone] Reason for Visit * Reason Onset Date Comments Follow Up Call 07/10/2020 Encounter Details Date Type Department Care Team (Late st Contact Info) Description 07/10/2020 Telephone [facility] [address] [place] [address] Piyush Pandey MD Follow Up Call Social History Tobacco Use [...] COVID-19? No / Unsure 07/03/2020 8:36 AM MOTOR AND CHASSIS INSPECTOR documented as of this encounter Progress Notes * Megan Lay RN - 07/11/2020 11:10 AM CST Mariel from Dr. Infante's office called back. Informed her Dr. Pandey would like pt to remain therapeutic for at least 6 weeks prior to cath. Will need to bridge with lovenox at time of cath. Virtual visit set up with Dr. Pandey for 08/01 to discuss next steps. Mariel v/u and had no further questions. R AND CHASSIS INSPECTOR * Bethanie Lay - 07/11/2020 9:02 AM CST They are faxing to [place] office fax. R AND CHASSIS INSPECTOR * Megan Lay RN - 07/10/2020 2:48 PM CST Returned call to Dr. Infante's office. TC back. Spoke to Mendez. He has restarted his Coumadin, but he is eager to reschedule his heart cath. Telephone visit set up with Dr. Pandey on 08/01 at 11:00am to discuss next steps. Will plan for pt to continue coumadin as of right now. Patient verbalized understanding and had no further questions. Will request records from [place]. R AND CHASSIS INSPECTOR * Libra Leyva - 07/10/2020 1:22 PM CST TELE-NURSE VOICEMAIL Retrieved voicemail message dated 07/09/20 at 2:58 pm on 07/10/20. Dr. Megan De La Rosa's office called re: patient Mendez Lay. Patient was scheduled for a Cath on 07/05/20. He was holding his Coumadin and was on Lovenox. 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 The patient is currently back on Coumadin. Dr. Infante's office is checking with the [place] office to see how we want to proceed. Please return call to [phone]. It was advised that he fo llow-up with Dr. Pandey. R AND CHASSIS INSPECTOR documented in this encounter Plan of Treatment Upcoming Encounters Date Type Department Care Team (Late st Contact Info) Description 09/25/2024 2:00 PM MOTOR AND CHASSIS INSPECTOR Appointment [facility] [address] [facility] [place] [address] Zayra Powell, PRINCIPAL SECRETARY [address] [place] [address] 10/16/2024 3:30 PM MOTOR AND CHASSIS INSPECTOR Office Visit [facility] [address] [facility] [facility] [place] [address] Brit Gonzáles MD [address] [place] [address] documented as of this encounter Visit Diagnoses Not on filedocumented in this encounter Care Teams It Consulting Director Relationship Specialty Start Date End Date Megan Infante MD [address] [facility] [place] [address] PCP - General FAMILY PRACTICE 04/06/16 Piyush Pandey MD [place] [employer] Tank Erector CARDIOVASCULAR DISEASE 04/06/16 12/28/23 Sharmila Davis APRN, VIDEO GAME SCRIPT WRITER-C [address] [facility] [address] [place] [phone] NURSE PRACTITIONER 01/04/17 04/03/24 Linda Block MD [address] [facility] [address] [place] [phone] [place] [employer]ose Tank Erector CLINICAL CARDIAC ELECTROPHYSIOLOGY 02/08/17 04/12/23 Jeff Grace MD [address] [place] [phone] Consulting Physician INTERNAL MEDICINE 02/20/19 3 Zaki Ortiz MD [address] [place] [address] Consulting Physician PULMONARY DISEASE 07/12/19 documented as of this encounter
--- OUTSIDE RECORDS SUMMARY | 2024-09-03 19:14 | XMS_ITS | Encounter Summary ---
Author Organization [facility] Address [address] [place] [address]. [place] [address] [place] [address] Care Team Providers Care Dairy Chemist Name Role Phone Piyush Pandey MD Unavailable Unavailabl e Megan Infante MD Primary Care Provider [phone] Sharmila Davis APRN DATABASE DBA-C Unavailable Linda Block MD Unavailable [phone] Jeff Grace MD Unavailable Zaki Ortiz MD Unavailable [phone] Encounter Details Date Type Department Care Team (Late st Contact Info) Description 10/02/2020 Orders Only [facility] Cardiology - [facility] [address] [place] [address] Piyush Pandey MD Social History Tobacco Use [...] COVID-19? No / Unsure 09/10/2020 7:25 AM RETORT ENGINEER documented as of this encounter Plan of Treatment Upcoming Encounters Date Type Department Care Team (Late st Contact Info) Description 09/25/2024 2:[address] [facility] [address] [place] [address] Andre Zayra K, COUNTER CUTTER [address] [facility] [place] [address] 10/16/2024 3:30 PM RETORT ENGINEER Office Visit [facility] [address] [place] [phone] Brit Gonzáles MD [address] [place] [address] documented as of this encounter Results * PRE-SURGICAL/PRE-PROCEDURE CORONAVIRUS (COVID 19) (10/05/2020 8:14 AM RETORT ENGINEER) CORONAVIRUS SARS COV 2 PCR (RESP) NOT DETECTED NOT DETECTED 10/06/2020 11:37 AM RETORT ENGINEER [facility] Comment: [...] providers and patients using the following websites: https://www.[employer].STACK Media/home/Covid-19/HCP/QuestIVD/fact- sheet.html https://www.[employer].com/home/Covid-19/Patients/ QuestIVD/fact-sheet.html This test has been authorized by the FDA under an Emergency Use Authorization (EUA) for use by authorized laboratories. Due to the current public health emergency, [facility] is receiving a high volume of [...] about COVID-19 can be found at the [facility] website: www.ActiveEon/Covid19. Test performed at [facility] [id number] [place] [address] ??[phone] Director: REEMA ORDAZ DO,MPH FIRST TEST UNKNOWN 10/05/2020 8:13 AM RETORT ENGINEER [facility] EMPLOYED IN HEALTHCARE NO 10/05/2020 8:13 AM RETORT ENGINEER [facility] SYMPTOMATIC DEFINED BY CDC UNKNOWN 10/05/2020 8:13 AM RETORT ENGINEER [facility] DATE OF SYMPTOM ONSET UNKNOWN 10/05/2020 8:16 AM RETORT ENGINEER [facility] HOSPITALIZATION STATUS NO 10/05/2020 8:13 AM RETORT ENGINEER [facility] PATIENT IN ICU NO 10/05/2020 8:13 AM RETORT ENGINEER [facility] RESIDENT OF [facility] NO 10/05/2020 8:13 AM RETORT ENGINEER [facility] PATIENT'S RACE WHITE OR 10/05/2020 8:13 AM RETORT ENGINEER [facility] ETHNICITY NONHISPANIC 10/05/2020 8:13 AM RETORT ENGINEER [facility] SOURCE (QST) NASOPHARYNGEAL SWAB 10/05/2020 8:13 AM RETORT ENGINEER [facility] NASOPHARYNGEAL SWAB / Unknown 10/05/2020 8:14 AM RETORT ENGINEER us Piyush Pandey MD MICROBIOLOGY - GENERAL CLARISSA MCARTHUR Final Result [facility] [address] [place] [address], [employer] [address] [place] [address], documented in this encounter Visit Diagnoses Diagnosis Pre-operative laboratory examination- Primary Pre-procedural laboratory examination documented in this encounter Care Teams Dairy Chemist Relationship Specialty Start Date End Date Megan Infante MD [address] [facility] [place] [phone] PCP - General FAMILY PRACTICE 04/06/16 Piyush Pandey MD [place] Fuel Cell Builder CARDIOVASCULAR DISEASE 04/06/16 12/28/23 Sharmila Davis APRN, DATABASE DBA-C [address] [phone] NURSE PRACTITIONER 01/04/17 04/03/24 Linda Block MD [address] [phone] [place] Fuel Cell Builder CLINICAL CARDIAC ELECTROPHYSIOLOGY 02/08/17 04/12/23 Jeff Grace MD [address] [phone] Consulting Physician INTERNAL MEDICINE 02/20/19 3 Zaki Ortiz MD [address] [phone] Consulting Physician PULMONARY DISEASE 07/12/19 documented as of this encounter
--- OUTSIDE RECORDS SUMMARY | 2024-09-03 19:14 | XMS_ITS | Encounter Summary ---
Author Organization [facility] Address [facility] [address] [place] [address] Care Team Providers Care Movie Extra Name Role Phone Piyush Pandey MD Unavailable Unavailabl e Megan Infante MD Primary Care Provider [phone] Sharmila Davis APRN, RUBBER TURNER-C Unavailable [phone] Linda Block MD Unavailable [phone] Jeff Grace MD Unavailable Zaki Ortiz MD Unavailable [phone] Encounter Details Date Type Department Care Team (Latest Contact Info) Description 03/05/2020 Travel Social History Tobacco Use Types Packs/Day [...] st Contact Info) Description 09/25/2024 2:00 PM COMPLEMENTARY HEALTH THERAPISTS Appointment [facility] [address] [place], [facility] Zayra Powell, [facility] [address] [facility] [address] [place], [place] [phone] 10/16/2024 3:30 PM COMPLEMENTARY HEALTH THERAPISTS [facility] [address] [place] [phone] Brit Gonzáles MD [address] [place], [place] [phone] documented as of this encounter Visit Diagnoses Not on filedocumented in this encounter Care Teams Movie Extra Relationship Specialty Start Date End Date Megan Infante MD [address] [place] [phone] PCP - General FAMILY PRACTICE 04/06/16 Piyush Pandey MD [place] Medical Billing Representative CARDIOVASCULAR DISEASE 04/06/16 12/28/23 Sharmila Davis, PREFORM PLATE MAKER, RUBBER TURNER-C [address] [facility] [address] [place] [phone] NURSE PRACTITIONER 01/04/17 04/03/24 Linda Block MD [address] [facility] [address] [phone] [place] Medical Billing Representative CLINICAL CARDIAC ELECTROPHYSIOLOGY 02/08/17 04/12/23 Jeff Grace MD [address] [facility] [address] [phone] Consulting Physician INTERNAL MEDICINE 02/20/19 6 3 Zaki Ortiz MD [address] [facility] [address] [phone] Consulting Physician PULMONARY DISEASE 07/12/19 documented as of this encounter
--- OUTSIDE RECORDS SUMMARY | 2024-09-03 19:14 | XMS_ITS | Encounter Summary ---
Author Organization [facility] Address [facility] [place] [address] [place] [address] Care Team Providers Care Emt/Paramedic Name Role Phone Piyush Pandey MD Unavailable Unavailabl e Megan Infante MD Primary Care Provider [phone] Sharmila Davis APRN DAUB COLOR MIXER-C Unavailable Linda Block MD Unavailable [phone] Jeff Grace MD Unavailable Encounter Details Date Type Department Care Team (Latest Contact Info) Description 06/07/2019 3:45 PM CDT - 06/07/2019 11:59 PM CDT Hospital Encounter [facility] [address] [place] [address] Hillary Saleh MD [address] [place] [address] Discharge Disposition: Home or Self [...] daily. 3 furosemide 40 MG tablet Take 3 tablets (120 mg total) by mouth daily. 30 tablet 05/11/2019 9 furosemide 40 MG tablet Take a total [...] st Contact Info) Description 09/25/2024 2:00 PM DEEP FAT FRY COOK Appointment [facility] [address] [place] [address] Zayra Powell, LEARNING COACH [address] [place] [address] 10/16/2024 3:30 PM DEEP FAT FRY COOK Office Visit [facility] [address] [place] [phone] Brit Gonzáles MD [address] [place] [address] documented as of this encounter Procedures Procedure Name Priority Date/Time Associated Diagnosis Comments FUNGAL ANTIBODY PANEL 3 Routine 06/07/2019 4:10 PM CDT Obstructive chronic bronchitis without exacerbation Lung mass PRO-BRAIN NATRIURETIC PEPTIDE Routine 06/07/2019 4:10 PM CDT Obstructive chronic bronchitis without exacerbation Lung mass ANGIOTENSIN I ENZYME SERUM Routine 06/07/2019 4:10 PM CDT Obstructive chronic bronchitis without exacerbation Lung mass documented in this encounter Results * (ABNORMAL) PRO-BRAIN NATRIURETIC PEPTIDE (06/07/2019 4:10 PM CDT) PRO-B TYPE NATRIURETIC PEPTIDE 190(H) <125 PG/ML 06/07/2019 4:39 PM CDT [facility] Comment: CUT POINTS ESTABLISHED BY INTERNATIONAL [...] FOR ACUTE CHF. 06/07/2019 4:10 PM CDT us Hillary Saleh MD LABORATORY Final Result [facility] [address] [place] [address], * FUNGAL ANTIBODY PANEL 3 (06/07/2019 4:10 PM CDT) HISTOPLASMA AB NEGATIVE NEGATIVE 06/12/2019 9:47 AM [...] LABORATORY Final Result [facility] [address] [place] [address], [place] [phone] [id number] * ANGIOTENSIN I ENZYME SERUM (06/07/2019 4:10 PM CDT) STEVIE S/P/B 25 9 - 67 U/L 06/12/2019 5:16 AM CDT [employer] [facility]ARTIN Comment: Test Performed by [employer] Tanish[facility], [address] [place] [address] Bill Blackmon M.D., Ph.D., Director of Laboratories , [place] [phone] 06/07/2019 4:10 PM CDT Hillary Saleh MD LABORATORY Final Result [facility] [address] [place] [address], [place] [phone] documented in this encounter Visit Diagnoses Diagnosis Obstructive chronic bronchitis without exacerbation (CMS/HCC HHS/HCC) Obstructive chronic bronchitis without exacerbation Lung mass Swelling, mass, or lump in chest documented in this encounter Care Teams Emt/Paramedic Relationship Specialty Start Date End Date Megan Infante MD [address] [facility] [place] [phone] PCP - General FAMILY PRACTICE 04/06/16 Piyush Pandey MD [place] Element Winding Machine Tender CARDIOVASCULAR DISEASE 04/06/16 12/28/23 Sharmila Davis, BOARD CERTIFIED ARTS THERAPIST, DAUB COLOR MIXER-C [address] [facility] [address] [place] [phone] NURSE PRACTITIONER 01/04/17 04/03/24 Linda Block MD [address] [phone] [place] Element Winding Machine Tender CLINICAL CARDIAC ELECTROPHYSIOLOGY 02/08/17 04/12/23 Jeff Grace MD [address] [place] [address] Consulting Physician INTERNAL MEDICINE 02/20/19 3 documented as of this encounter
--- OUTSIDE RECORDS SUMMARY | 2024-09-03 19:14 | XMS_ITS | Encounter Summary ---
Author Organization [facility] Address [facility]6 [facility] [place] [address] [place] [address] Care Team Providers Care Line Prep Cook Name Role Phone Piyush Pandey MD Unavailable Unavailabl e Megan Infante MD Primary Care Provider [phone] Sharmila Davis APRN SHAPER AND PRESSER-C Unavailable Linda Block MD Unavailable [phone] Jeff Grace MD Unavailable Zaki Ortiz MD Unavailable [phone] Encounter Details Date Type Department Care Team (Late st Contact Info) Description 08/27/2020 Prep for Procedure [place] Mechanic Pre/Post [address] [place] [address] Piyush Pandey MD Social History Tobacco Use [...] st Contact Info) Description 09/25/2024 2:00 PM MAKE UP GIRL Appointment [facility] [address] [facility] [place] [address] Zayra Powell, PIE BAKERY LABORER [address] [place] [address] 10/16/2024 3:30 PM MAKE UP GIRL Office Visit [facility] [address] [facility] [facility] [place] [address] Brit Gonzáles MD [address] [place] [address] documented as of this encounter Visit Diagnoses Not on filedocumented in this encounter Care Teams Line Prep Cook Relationship Specialty Start Date End Date Megan Infante MD [address] [place] [address] PCP - General FAMILY PRACTICE 04/06/16 Piyush Pandey MD [place] Print Press Operator CARDIOVASCULAR DISEASE 04/06/16 12/28/23 Sharmila Davis APRN, SHAPER AND PRESSER-C [address] [facility] [address] [place] [address] NURSE PRACTITIONER 01/04/17 04/03/24 Linda Block MD [address] [facility] [address] [place] [address] [place] Print Press Operator CLINICAL CARDIAC ELECTROPHYSIOLOGY 02/08/17 04/12/23 Jeff Grace MD [address] [facility] [address] [place] [address] Consulting Physician INTERNAL MEDICINE 02/20/19 3 Zaki Ortiz MD [address] [facility] [address] [place] [phone] Consulting Physician PULMONARY DISEASE 07/12/19 documented as of this encounter
--- OUTSIDE RECORDS SUMMARY | 2024-09-03 19:14 | XMS_ITS | Encounter Summary ---
Author Organization [facility] Address [facility] [place] [address] [place] [address] Care Team Providers Care Net Coordinator Name Role Phone Piyush Pandey MD Unavailable Unavailabl e Megan Infante MD Primary Care Provider [phone] Sharmila Davis APRN, OBSTETRICS TECH-C Unavailable Linda Block MD Unavailable [phone] Jeff Grace MD Unavailable Encounter Details Date Type Department Care Team (Latest Contact Info) Description 05/05/2019 11:50 AM CDT - 05/05/2019 11:59 PM CDT Hospital Encounter [facility] [address] [place] [address] Sharmila Davis, DANNY, OBSTETRICS TECH-C [address] [facility] [address] [place] [address] Discharge Disposition: Home or Self Care (Routine [...] sprays by Each Nare route daily. 1 furosemide 40 MG tablet Take 80 mg by mouth daily. 9 gabapentin 100 MG capsule 2 capsules in [...] the lungs 2 (two) times daily. 1 pantoprazole EC 40 MG tablet Take 40 mg by mouth daily. 0 prazosin 1 MG capsule Take 1 mg [...] st Contact Info) Description 09/25/2024 2:00 PM INSURANCE BILLER Appointment [facility] [address] [place] [address] Zayra Powell, LONG CHAIN BEAMER [address] [place] [address] 10/16/2024 3:30 PM INSURANCE BILLER Office Visit [facility] [address] [place] [phone] Brit Gonzáles MD [address] [place] [address] documented as of this encounter Procedures Procedure Name Priority Date/Time Associated Diagnosis Comments PRO-BRAIN NATRIURETIC PEPTIDE Routine 05/05/2019 11:59 AM CDT Shortness of breath PROTHROMBIN TIME, VENOUS Routine 05/05/2019 11:59 AM CDT Current use of joint terminal attack controller anticoagulation COMPREHENSIVE METABOLIC PANEL Routine 05/05/2019 11:59 AM CDT Shortness of breath CBC, AUTO, NO DIFF Routine 05/05/2019 11 :59 AM CDT Shortness of breath documented in this encounter Results * (ABNORMAL) CBC, AUTO, NO DIFF (05/05/2019 11:59 AM CDT) WBC 9.3 4.0 - 10.8 x10'3/uL 05/05/2019 12:07 PM CDT [facility] RBC 4.04(L) 4.50 - 6.10 x10'6/uL 05/05/2019 12:07 PM CDT [facility] HGB 12.3(L) 13.0 - 18.0 G/DL 05/05/2019 12:07 PM CDT [facility] HCT 37.9 37.0 - 52.0 % 05/05/2019 12:07 PM CDT [facility] MCV 93.8 78.0 - 100.0 FL 05/05/2019 12:07 PM CDT [facility] MCH 30.4 27.0 - 31.0 PG 05/05/2019 12:07 PM CDT [facility] MCHC 32.5(L) 33.0 - 36.0 G/DL 05/05/2019 12:07 PM CDT [facility] RDW 14.7(H) 11.5 - 14.5 % 05/05/2019 12:07 PM CDT [facility] PLT 217 150 - 350 x10'3/uL 05/05/2019 12:07 PM CDT [facility] MPV 9.4 7.4 - 10.4 FL 05/05/2019 12:07 PM CDT [facility] 05/05/2019 11:5 9 AM CDT STERLING Guillen APRN LABORATORY Final Result [facility] [address] [place] [address], [place] [phone] * (ABNORMAL) COMPREHENSIVE METABOLIC PANEL (05/05/2019 11:59 AM CDT) SODIUM S/P/B 133(L) 136 - 145 MMOL/L 05/05/2019 12:35 PM CDT [facility] POTASSIUM S/P/B 3.9 3.5 - 5.1 MMOL/L 05/05/2019 12:35 PM CDT [facility] CHLORIDE S/P/B 100 98 - 107 MMOL/L 05/05/2019 12:35 PM CDT [facility] CO2 29.0 21.0 - 32.0 MMOL/L 05/05/2019 12:35 PM CDT [facility] GLUCOSE 135(H) 74 - 106 MG/DL 05/05/2019 12:35 PM CDT [facility] BUN 27(H) 7 - 18 MG/DL 05/05/2019 12:35 PM CDT [facility] CREATININE S/P/B 1.25 0.70 - 1.30 MG/DL 05/05/2019 12:35 PM CDT [facility] CALCIUM S/P/B 9.3 8.5 - 10.1 MG/DL 05/05/2019 12:35 PM CDT [facility] BILIRUBIN TOTAL S/P/B 1.0 0.2 - 1.0 MG/DL 05/05/2019 12:35 PM CDT [facility] ALKALINE PHOSPHATASE S/P/B 95 45 - 115 U/L 05/05/2019 12:35 PM [facility] AST 21 15 - 37 U/L 05/05/2019 12:35 PM [facility] ALT 44 16 - 61 U/L 05/05/2019 12:35 PM [facility] TOTAL PROTEIN S/P/B 8.2 6.4 - 8.2 G/DL 05/05/2019 12:35 PM [facility] ALBUMIN S/P/B 3.3(L) 3.4 - 5.0 G/DL 05/05/2019 12:35 PM [facility] ANION GAP 4.0(L) 5.0 - 15.0 MMOL/L 05/05/2019 12:35 PM [facility] Comment:REFERENCE RANGE NOT ESTABLISHED OSMOLALITY (CALC) 283 MOSM/KG 05/05/2019 12:35 PM [facility] Comment:REFERENCE RANGE NOT ESTABLISHED EGFR NON-AFR. AMER. 60(L) >90 ML/MIN/1 .73 M2 05/05/2019 12:35 PM [facility] EGFR AFR. AMER. 70(L) >90 ML/MIN/1 .73 M2 05/05/2019 12:35 PM [facility] GFR NOTES THE ESTIMATED GFR IS CALCULATED USING THE 2009 CKD-EPI EQUATION. THE FOLLOWING CATEGORIES FOR GRADING RENAL FUNCTION ARE RECOMMENDED BY THE INTERNATIONAL SOCIETY OF NEPHROLOGY (KDIGO 2012 CLINICAL PRACTICE GUIDELINE). 05/05/2019 12:35 PM [facility] Comment: G1,NORMAL OR HIGH: >89 ml/min/1.73 m2 G2,MILDLY DECREASED: 60-89 ml/min/1.73 m2 G3A,MILDLY TO MODERATELY DECREASED: 45-59 ml/min/1.73 m2 G3B,MODERATELY TO SEVERELY DECREASED: 30-44 ml/min/1.73 m2 G4,SEVERELY DECREASED: 15-29 ml/min/1.73 m2 G5,KIDNEY FAILURE: <15 ml/min/1.73 m2 05/05/2019 11:5 9 AM CDT STERLING Chance APRN LABORATORY Final Result Performing Organization Address [facility] Co de Phone Number [facility] [address] [place] [address], [phone] * (ABNORMAL) PRO-BRAIN NATRIURETIC PEPTIDE (05/05/2019 11:59 AM CDT) PRO-B TYPE NATRIURETIC PEPTIDE 470(H) <125 PG/ML 05/05/2019 12:35 PM CDT [facility] Comment: AGE INDEPENDENT: <300 [...] OF 89% AND 72% FOR ACUTE CHF. 05/05/2019 11:5 9 AM CDT STERLING Chance APRN LABORATORY Final Result Performing Organization Address [facility] de Phone Number [facility] [address] [place] [address], [phone] * (ABNORMAL) PROTHROMBIN TIME, VENOUS (05/05/2019 11:59 AM CDT) PROTIME 26.5(H) 11.6 - 14.3 SEC 05/05/2019 12:16 PM CDT [facility] INR 2.5(H) 0.9 - 1.1 05/05/2019 12:16 PM CDT [facility] 05/05/2019 11:5 9 AM CDT Sharmila Davis APRN, OBSTETRICS TECH-C LABORATORY Final Result [facility] [address] [place] [address], [phone] documented in this encounter Visit Diagnoses Diagnosis Current use of long-term anticoagulation Encounter for long-term (current) use of anticoagulants Shortness of breath documented in this encounter Care Teams Net Coordinator Relationship Specialty Start Date End Date Megan Infante MD [address] [facility] [place] [address] PCP - General FAMILY PRACTICE 04/06/16 Piyush Pandey MD [facility] Support Specialist CARDIOVASCULAR DISEASE 04/06/16 12/28/23 Sharmila Davis APRN, OBSTETRICS TECH-C [address] [address] NURSE PRACTITIONER 01/04/17 04/03/24 Linda Block MD [address] [facility] [address] [address] [facility] Support Specialist CLINICAL CARDIAC ELECTROPHYSIOLOGY 02/08/17 04/12/23 Jeff Grace MD [address] [facility] [address] [place] [address] Consulting Physician INTERNAL MEDICINE 02/20/19 6 3 documented as of this encounter
--- OUTSIDE RECORDS SUMMARY | 2024-09-03 19:14 | XMS_ITS | Encounter Summary ---
Author Organization [facility] Address [facility] [place] [address] [place] [address] Care Team Providers Care Order Packer Name Role Phone Piyush Pandey MD Unavailable Unavailabl e Megan Infante MD Primary Care Provider [phone] Sharmila Davis APRN, SHERIFFS OFFICER-C Unavailable [phone] Linda Block MD Unavailable [phone] Jeff Grace MD Unavailable Encounter Details Date Type Department Care Team (Late st Contact Info) Description 06/05/2019 Orders Only [facility] [address] [place] [address] Sharmila Davis, DANNY, SHERIFFS OFFICER-C [address] [facility] [address] [place] [address] Social History Tobacco Use Types [...] st Contact Info) Description 09/25/2024 2:00 PM KNIFE SETTER Appointment [facility] [address] [place] [address] Zayra Powell, FORMING PROCESS WORKER [address] [place] [address] 10/16/2024 3:30 PM KNIFE SETTER Office Visit [facility] [address] [place] [phone] Brit Gonzáles MD [address] [place] [address] documented as of this encounter Procedures Procedure Name Priority Date/Time Associated Diagnosis Comments NM PHARM NUC STRESS TEST 1DAY W TRACING Routine 06/05/2019 SOB (shortness of breath) Atherosclerosis of [place] coronary artery of [place] heart, angina presence unspecified documented in this encounter Results * NM PHARM NUC STRESS TEST 1DAY (06/05/2019) Anatomical Region Laterality Modality Cardiac Nuclear Medicine us Sharmila Davis APRN, SHERIFFS OFFICER-C NUC MED Final Result documented in this encounter Visit Diagnoses Diagnosis SOB (shortness of breath) Shortness of breath Atherosclerosis of [place] coronary artery of [place] heart, angina presence unspecified documented in this encounter Care Teams Order Packer Relationship Specialty Start Date End Date Megan Infante MD [address] [place] [phone] PCP - General FAMILY PRACTICE 04/06/16 Piyush Pandey MD [place] D[employer] Tank Tender CARDIOVASCULAR DISEASE 04/06/16 12/28/23 Sharmila Davis APRN, SHERIFFS OFFICER-C [address] [facility] [address] [place] [address] NURSE PRACTITIONER 01/04/17 04/03/24 Linda Block MD [address] [place] [address] [place] [employer] Tank Tender CLINICAL CARDIAC ELECTROPHYSIOLOGY 02/08/17 04/12/23 Jeff Grace MD [address] [place] [address] Consulting Physician INTERNAL MEDICINE 02/20/19 3 documented as of this encounter
--- OUTSIDE RECORDS SUMMARY | 2024-09-03 19:14 | XMS_ITS | Encounter Summary ---
Author Organization [facility] Address [facility]6 [facility] [address] [place] [address] Care Team Providers Care Vehicle Technician Name Role Phone Piyush Pandey MD Unavailable Unavailabl e Megan Infante MD Primary Care Provider [phone] Sharmila Davsi APRN, MACHINE SET UP-C Unavailable [phone] Linda Block MD Unavailable [phone] Jeff Grace MD Unavailable Zaki Ortiz MD Unavailable [phone] Encounter Details Date Type Department Care Team (Latest Contact Info) Description 06/24/2020 Travel Social History Tobacco Use Types Packs/Day [...] COVID-19? Unable to assess 06/24/2020 11:52 AM FLOOR SPACE ALLOCATOR documented as of this encounter Plan of Treatment Upcoming Encounters Date Type Department Care Team (Late st Contact Info) Description 09/25/2024 2:00 PM FLOOR SPACE ALLOCATOR Appointment [facility] [address] [place] [address] Zayra Powell, [facility] [address] [place] [address] 10/16/2024 3:30 PM FLOOR SPACE ALLOCATOR Office Visit [facility] [address] [place] [address] Brit Gonzáles MD [address] [place], [place] [phone] documented as of this encounter Visit Diagnoses Not on filedocumented in this encounter Care Teams Vehicle Technician Relationship Specialty Start Date End Date Megan Infante MD [address] [place] [address] PCP - General FAMILY PRACTICE 04/06/16 Piyush Pandey MD [place] Cesspool Cleaner CARDIOVASCULAR DISEASE 04/06/16 12/28/23 Sharmila Davis APRN, MACHINE SET UP-C [address] [phone] NURSE PRACTITIONER 01/04/17 04/03/24 Linda Block MD [address] [facility] [address] [phone] [place] Cesspool Cleaner CLINICAL CARDIAC ELECTROPHYSIOLOGY 02/08/17 04/12/23 Jeff Grace MD [address] [facility] [address] [phone] Consulting Physician INTERNAL MEDICINE 02/20/19 3 Zaki Ortiz MD [address] [facility] [address] [phone] Consulting Physician PULMONARY DISEASE 07/12/19 documented as of this encounter
--- OUTSIDE RECORDS SUMMARY | 2024-09-03 19:14 | XMS_ITS | Encounter Summary ---
Author Organization [facility] Address [facility] [place] [address] [place] [address] Care Team Providers Care School Psychologist Assistant Name Role Phone Piyush Pandey MD Unavailable Unavailabl e Megan Infante MD Primary Care Provider [phone] Sharmila Davis APRN WIRE FRAME MAKER-C Unavailable Linda Block MD Unavailable [phone] Jeff Grace MD Unavailable Zaki Ortiz MD Unavailable [phone] Encounter Details Date Type Department Care Team (Late st Contact Info) Description 06/28/2020 Prep for Procedure [place] [employer] And Benefits Advisor Pre/Post [address] [place] [address] Piyush Pandey MD Social History Tobacco Use [...] COVID-19? Unable to assess 06/24/2020 11:52 AM SILVER PLATER documented as of this encounter Plan of Treatment Upcoming Encounters Date Type Department Care Team (Late st Contact Info) Description 09/25/2024 2:[address] [facility] [address] [place] [address] Zayra Powell, SERVICE DIRECTOR [address] [place], [place] [phone] 10/16/2024 3:30 PM SILVER PLATER Office Visit [facility] [address] [place] [phone] Brit Gonzáles MD [address] [place], [place] [phone] documented as of this encounter Visit Diagnoses Not on filedocumented in this encounter Care Teams School Psychologist Assistant Relationship Specialty Start Date End Date Megan Infante MD [address] [place] [address] PCP - General FAMILY PRACTICE 04/06/16 Piyush Pandey MD [place] Multimedia Specialist CARDIOVASCULAR DISEASE 04/06/16 12/28/23 Sharmila Davis APRN, WIRE FRAME MAKER-C [address] [place] [address] [place] [address] NURSE PRACTITIONER 01/04/17 04/03/24 Linda Block MD [address] [facility] [address] [place] [address] [place] Multimedia Specialist CLINICAL CARDIAC ELECTROPHYSIOLOGY 02/08/17 04/12/23 Jeff Grace MD [address] [facility] [address] [place] [phone] Consulting Physician INTERNAL MEDICINE 02/20/19 3 aZki Ortiz MD [address] [place] [address] Consulting Physician PULMONARY DISEASE 07/12/19 documented as of this encounter
--- OUTSIDE RECORDS SUMMARY | 2024-09-03 19:14 | XMS_ITS | Encounter Summary ---
Author Organization [facility] Address [address] [place] [address]. [place] [address] [place] [address] Care Team Providers Care Security System Sales Consultant Name Role Phone Amauri Pandey MD Unavailable Unavailabl e Megan Infante MD Primary Care Provider [phone] Sharmila Davis APRN, NP-C Unavailable [phone] Linda Block MD Unavailable [phone] Jeff Grace MD Unavailable Zaki Ortiz MD Unavailable [phone] Reason for Referral * Imaging (Routine) - Closed Specialty Diagnoses / Procedures Referred By Yung t Referred To Contact RADIOLOGY Diagnoses Mitral regurgitation Procedures USE TRANSESOPHAGEAL ECHO Amauri Pandey MD [facility] [address] [place] [address] Phone: tel: fax: Referral ID Status Reason Start Date Expiration Date Visits Re quested Visits Authorized [id number] Closed 09/24/2020 10/22/2021 1 1 INUOUS PROCESS ROTARY DRUM TANNER Reason for Visit * Reason Onset Date Comments Schedule Procedure 09/24/2020 NEMO Encounter Details Date Type Department Care Team (Late st Contact Info) Description 09/24/2020 Telephone [facility] [address] [place] [address] Amauri Pandey MD Schedule Procedure (NEMO) Social History Tobacco Use Types Packs/Day Years [...] COVID-19? No / Unsure 09/10/2020 7:25 AM CONTINUOUS PROCESS ROTARY DRUM TANNER documented as of this encounter Progress Notes * Megan Lay RN - 09/24/2020 11:[address] Pandey, pt needs pulmonology f/u with Dr. Zaki Ortiz and Dr. Callahan for sleep apnea. Told pt I would be arranging those appts. Pt states he wants to hold off on those appts for now. States he wants to see Dr. Pandey and do NEMO first. Pt also mentions he is on his own now, and he has a lot going on. Pt voices concerns about medical bills piling up . NEMO scheduled for 10/08 at 10:00am. Pt aware of date/time and instructions. Letter mailed. INUOUS PROCESS ROTARY DRUM TANNER documented in this encounter Plan of Treatment Upcoming Encounters Date Type Department Care Team (Late st Contact Info) Description 09/25/2024 2:00 PM CONTINUOUS PROCESS ROTARY DRUM TANNER Appointment [facility] [address] [place] [address] Zayra Powell, CANCER GENETICS ASSISTANT [address] [place] [address] 10/16/2024 3:30 PM CONTINUOUS PROCESS ROTARY DRUM TANNER Office Visit [facility] [address] [place] [address] Brit Goználes MD [address] [place] [address] documented as of this encounter Results * USE TRANSESOPHAGEAL ECHO (10/10/2020 8:56 AM CONTINUOUS PROCESS ROTARY DRUM TANNER) Anatomical Region Laterality Modality Cardiac Echocardiogram, Cardiac Electrophysiology, Cardiac Electrophysiology 10/10/2020 7:49 AM CONTINUOUS PROCESS ROTARY DRUM TANNER Narrative 10/13/2020 5:32 PM CONTINUOUS PROCESS ROTARY DRUM TANNER ?Transesophageal Echocardiography Report Pat.Name: ??OBIE SIMS ?Pat.ID: ?[id number] ? St.Date: ?? 10/10/2020 ? Refer.: ??[id number] ROBERT Exam Time: 7:49:00 AM ? Study Type:TRANSESOPHAGEAL ECHO (NEMO) Height: ?66.93in ? Weight: ?209lb ? BSA: ? 2.06 m2 ?Age: ??1955,65Y ? Sex: ? MALE ?BP: ?132/74 ? HR: ?86 bpm ?Sonogrphr: Areli Arsenio RDCS ? Pat. Stat.:Outpatient ?CPT - 4: ?[id number] ? Reason for Study:Mitral regurgitation History / [...] 05:32 PM Amauri Pandey M.D. Procedure Note mAauri Pandey MD - 10/13/2020 Transesophageal Echocardiography Report Pat.Name: OBIE SIMS Pat.ID: [id number] .Date: 10/10/2020 Refer.: [id number], AMAURI PANDEY Exam Time: 7:49:00 AM Study Type:TRANSESOPHAGEAL ECHO (NEMO) Height: 66.93in Weight: 209lb BSA: 2.06 m2 Age: 11 1955,65Y Sex: MALE BP: 132/74 HR: 86 bpm Sonogrphr: Arsenio Singleton [facility] Pat. Stat.:Outpatient CPT - 4: [id number] Reason for Study:Mitral regurgitation History / Clinical:Shortness [...] Amauri Pandey MD ECHO Final Resul t documented in this encounter Visit Diagnoses Diagnosis Mitral regurgitation- Primary Mitral valve disorders Mitral regurgitation Mitral valve disorders documented in this encounter Care Teams Security System Sales Consultant Relationship Specialty Start Date End Date Megan Infante MD [address] [facility] [place] [phone] PCP - General FAMILY PRACTICE 04/06/16 Amauri Pandey MD [place] Refractory Tile Helper CARDIOVASCULAR DISEASE 04/06/16 12/28/23 Sharmila Davis, BEER RUNNER, AIR BOX TESTER-C [address] [facility] [address] [place] [phone] NURSE PRACTITIONER 01/04/17 04/03/24 Linda Block MD [address] [facility] [address] [place] [phone] [place] Refractory Tile Helper CLINICAL CARDIAC ELECTROPHYSIOLOGY 02/08/17 04/12/23 Jeff Grace MD [address] [facility] [address] [place] [address] Consulting Physician INTERNAL MEDICINE 02/20/19 3 Zaki Ortiz MD [address] [facility] [address] [place] [address] Consulting Physician PULMONARY DISEASE 07/12/19 documented as of this encounter
--- OUTSIDE RECORDS SUMMARY | 2024-09-03 19:14 | XMS_ITS | Encounter Summary ---
Author Organization [facility] Address [address] [place] [address]. [place] [address] [place] [address] Care Team Providers Care Circular Sawyer Helper Name Role Phone Piyush Pandey MD Unavailable Unavailabl e Megan Infante MD Primary Care Provider [phone] Sharmila Davis APRN CLOTH TESTER QUALITY-C Unavailable Linda Block MD Unavailable [phone] Jeff Grace MD Unavailable Zaki Ortiz MD Unavailable [phone] Encounter Details Date Type Department Care Team (Late st Contact Info) Description 03/02/2020 Orders Only [facility] [address] [place] [address] Kilo Navarro MD [address] [place] [address] Social History Tobacco Use Types [...] st Contact Info) Description 09/25/2024 2:00 PM E COMMERCE MERCHANT Appointment [facility] [address] [place] [address] Zayra Powell, TRANSPORT SPECIALIST [address] [facility] [place] [address] 10/16/2024 3:30 PM E COMMERCE MERCHANT Office Visit [facility] [address] [place] [phone] Brit Gonzáles MD [address] [place] [address] documented as of this encounter Results * PRE-SURGICAL/PRE-PROCEDURE CORONAVIRUS (COVID 19) (03/02/2020 6:46 AM CDT) CORONAVIRUS SARS COV 2 PCR (RESP) NOT DETECTED NOT DETECTED 03/03/2020 8:23 PM CDT [facility] Comment: A Not Detected (negative) test [...] providers and patients using the following websites: https://www.[employer].com/home/Covid-19/HCP/NAAT/fact-sheet2 https://www.[employer].Myrl/home/Covid-19/Patients/NAAT/ fact-sheet2 This test has been authorized by the FDA under an Emergency Use Authorization (EUA) for use by authorized laboratories. Due to the current public health emergency, [facility] is receiving a high volume of samples [...] about COVID-19 can be found at the [facility] website: www.[employer]/Covid19. Test performed at [facility] [address] ??[phone] Director: REEMA ORDAZ DO,MPH NASOPHARYNGEAL SWAB / Unknown 03/02/2020 6:46 AM CDT us Kilo Navarro MD MICROBIOLOGY - GENERAL ORDERA BLES Final Result [facility] [id number] [place] [address] documented in this encounter Visit Diagnoses Diagnosis Pre-operative laboratory examination- Primary Pre-procedural laboratory examination documented in this encounter Additional Health Concerns Infection Onset Date Last Indicated Resolved Time COVID-19 Rule Out 03/02/2020 03/02/2020 03/03/2020 8:23 PM CDT documented as of this encounter Care Teams Circular Sawyer Helper Relationship Specialty Start Date End Date Megan Infante MD [address] [facility] [place] [address] PCP - General FAMILY PRACTICE 04/06/16 Piyush Pandey MD [place] Upper [employer]utter CARDIOVASCULAR DISEASE 04/06/16 12/28/23 Sharmila Davis APRN, CLOTH TESTER QUALITY-C [address] [facility] [address] [place] [address] NURSE PRACTITIONER 01/04/17 04/03/24 Linda Block MD [address] [address] [place] CLINICAL CARDIAC ELECTROPHYSIOLOGY 02/08/17 04/12/23 Jeff Grace MD [address] [place] [phone] Consulting Physician INTERNAL MEDICINE 02/20/19 3 Zaki Ortiz MD [address] [place] [phone] Consulting Physician PULMONARY DISEASE 07/12/19 documented as of this encounter
--- OUTSIDE RECORDS SUMMARY | 2024-09-03 19:15 | XMS_ITS | Encounter Summary ---
Author Organization [facility] Address Critical access hospital6 [facility] [place] [address] [place] [address] Care Team Providers Care E/M Engineer Name Role Phone Piyush Pandey MD Unavailable Unavailabl e Megan Infante MD Primary Care Provider [phone] Sharmila Davis APRN ACCOUNT ADMINISTRATOR-C Unavailable Linda Block MD Unavailable [phone] Reason for Visit * Reason Onset Date Comments Results 05/31/2018 Encounter Details Date Type Department Care Team (Late st Contact Info) Description 05/31/2018 Telephone [email or web address] [address] [place] [address] Piyush Pandey MD Results Social History Tobacco Use Types Packs/Day [...] as of this encounter Progress Notes * Hayley Gee RN - 05/31/2018 9:20 AM CDT Sent pt letter with results documented in this encounter Plan of Treatment Upcoming Encounters Date Type Department Care Team (Late st Contact Info) Description 09/25/2024 2:00 PM EMERGENCY SPILL RESPONSE TECHNICIAN Appointment [facility] [address] [place] [address] Zayra Powell, PATROL JUDGE [address] [place] [address] 10/16/2024 3:30 PM EMERGENCY SPILL RESPONSE TECHNICIAN Office Visit [facility] [facility] [address] [place] [address] Brit Gonzáles MD [address] [place], [place] [phone] documented as of this encounter Visit Diagnoses Not on filedocumented in this encounter Care Teams E/M Engineer Relationship Specialty Start Date End Date Megan Infante MD [address] [facility] [place] [address] PCP - General FAMILY PRACTICE 04/06/16 Piyush Pandey MD [place] Facing Machine Operator CARDIOVASCULAR DISEASE 04/06/16 12/28/23 Sharmila Davis APRN, ACCOUNT ADMINISTRATOR-C [address] [facility] [address] [place] [phone] NURSE PRACTITIONER 01/04/17 04/03/24 Linda Block MD [address] [facility] [address] [place] [address] [place] Facing Machine Operator CLINICAL CARDIAC ELECTROPHYSIOLOGY 02/08/17 04/12/23 documented as of this encounter
--- OUTSIDE RECORDS SUMMARY | 2024-09-03 19:15 | XMS_ITS | Encounter Summary ---
Author Organization [facility] Address Critical access hospital6 [facility] [place] [address] [place] [address] Care Team Providers Care Ultrasound Specialist Name Role Phone Piyush Pandey MD Unavailable Unavailabl e Megan Infante MD Primary Care Provider [phone] Sharmila Davis APRN DIRECTOR OF CONSUMER AFFAIRS-C Unavailable Linda Block MD Unavailable [phone] Jeff Grace MD Unavailable Zaki Ortiz MD Unavailable [phone] Concetta Acevedo MD Unavailable [phone] Jeff Grace MD Unavailable Brit Gonzáles MD Unavailable Encounter Details Date Type Department Care Team (Late st Contact Info) Description 11/06/2017 Abstract [facility] [address] [place] [address] , Generic Conversion, Social History Tobacco Use Types Packs/Day Years [...] Contact Info) Description 09/25/2024 2:00 PM STRATEGIC DEBRIEFING SPECIALIST Appointment [facility] [address] [place] [address] Zayra Powell, FURNITURE ASSEMBLY SUPERVISOR [address] [place] [address] 10/16/2024 3:30 PM STRATEGIC DEBRIEFING SPECIALIST Office Visit [facility] [address] [place] [address] Brit Gonzáles MD [address] [place], [place] [address] documented as of this encounter Visit Diagnoses Not on filedocumented in this encounter Additional Health Concerns Infection Onset Date Last Indicated Resolved Time COVID-19 Rule Out 03/02/2020 03/02/2020 03/03/2020 8:23 PM CDT COVID-19 Rule Out 07/03/2020 07/03/2020 07/04/2020 11:25 PM STRATEGIC DEBRIEFING SPECIALIST COVID-19 Rule Out 09/07/2020 09/07/2020 09/08/2020 5:52 PM STRATEGIC DEBRIEFING SPECIALIST COVID-19 Rule Out 10/05/2020 10/05/2020 10/06/2020 11:37 AM STRATEGIC DEBRIEFING SPECIALIST COVID-19 Rule Out 02/08/2021 02/08/2021 02/08/2021 9:06 PM CDT COVID-19 Rule Out 01/24/2022 01/24/2022 01/24/2022 6:41 PM CDT COVID-19 Rule Out 01/04/2023 01/04/2023 01/04/2023 10:12 AM CDT documented as of this encounter Care Teams Ultrasound Specialist Relationship Specialty Start Date End Date Megan Infante MD [address] [place] [phone] PCP - General FAMILY PRACTICE 04/06/16 Piyush Pandey MD [place] Tafe Teacher CARDIOVASCULAR DISEASE 04/06/16 12/28/23 Sharmila Davis APRN, DIRECTOR OF CONSUMER AFFAIRS-C [address] [phone] NURSE PRACTITIONER 01/04/17 04/03/24 Linda Block MD [address] [place] [phone] [place] Tafe Teacher CLINICAL CARDIAC ELECTROPHYSIOLOGY 02/08/17 04/12/23 Jeff Grace MD [address] [place] [phone] Consulting Physician INTERNAL MEDICINE 02/20/19 3 Zaki Ortiz MD [address] [place] [phone] Consulting Physician PULMONARY DISEASE 07/12/19 Concetta Acevedo MD [address] [place] [address] Surgeon NEUROLOGICAL SURGERY 12/16/22 Jeff Grace MD [address] [place] [address] Consulting Physician INTERNAL MEDICINE 02/11/23 Brit Gonzáles MD [address] [place], [place] [address] Consulting Physician CARDIOVASCULAR DISEASE 12/29/23 documented as of this encounter
--- OUTSIDE RECORDS SUMMARY | 2024-09-03 19:15 | XMS_ITS | Encounter Summary ---
Author Organization [facility] Address [facility]6 [facility] [place] [address] [place] [address] Care Team Providers Care Septic Cleaner Name Role Phone Piyush Pandey MD Unavailable UnavailMegan Rodriguez MD Primary Care Provider [phone] Sharmila Davis APRN, CABLE ENGINEER-C Unavailable [phone] Linda Block MD Unavailable [phone] Encounter Details Date Type Department Care Team (Latest Contact Info) Description 05/17/2016 Abstract [facility] Social History Tobacco Use Types Packs/Day Years Used Date Smoking Tobacco: Former Smokeless Tobacco: Former Chew Alcohol Use Standard Drinks/Week Comments No 0 (1 standard drink = 0.6 oz pur e alcohol) Sex and Gender Information Value Date Recorded Sex Assigned at Not on file Legal Sex Male 10:01 PM CDT Gender Identity Not on file Sexual Orientation Not on file documented as of this encounter Plan of Treatment Upcoming Encounters Date Type Department Care Team (Late st Contact Info) Description 09/25/2024 2:00 PM INTERMEDIATE FRAME TENDER Appointment [facility] [address] [place] [address] Zayra Powell, GRAPHIC DESIGN INTERN [address] [place] [address] 10/16/2024 3:30 PM INTERMEDIATE FRAME TENDER Office Visit [facility] [address] [place] [address] Brit Gonzáles MD [address] [place] [address] documented as of this encounter Visit Diagnoses Not on filedocumented in this encounter Care Teams Septic Cleaner Relationship Specialty Start Date End Date Megan Infante MD [address] [facility] [place] [phone] PCP - General FAMILY PRACTICE 04/06/16 Piyush Pandey MD [place] [employer] Supervisor CARDIOVASCULAR DISEASE 04/06/16 12/28/23 Sharmila Davis APRN, CABLE ENGINEER-C [address] [facility] [address] [place] [phone] NURSE PRACTITIONER 01/04/17 04/03/24 Linda Block MD [address] [facility] [address] [address] [employer] [employer] Supervisor CLINICAL CARDIAC ELECTROPHYSIOLOGY 02/08/17 04/12/23 documented as of this encounter
--- OUTSIDE RECORDS SUMMARY | 2024-09-03 19:15 | XMS_ITS | Encounter Summary ---
Author Organization [facility] Address [facility] [place] [address] [place] [address] Care Team Providers Care Manager Business Planning Name Role Phone Piyush Pandey MD Unavailable Unavailabl e Megan Infante MD Primary Care Provider [phone] Sharmila Davis APRN, NP-C Unavailable [phone] Linda Block MD Unavailable [phone] Jeff Grace MD Unavailable Reason for Referral * Imaging (Routine) - Closed Specialty Diagnoses / Procedures Referred By Contac t Referred To Contact CARDIOLOGY Diagnoses Bilateral carotid bruits Procedures USV CAROTID DUPLEX Jeff Pulido MD [address] [place] [address] Phone: tel: fax: Referral ID Status Reason Start Date Expiration Date Visits Re quested Visits Authorized [id number] Closed 03/07/2019 04/07/2020 1 1 * Imaging (Routine) - Closed Specialty Diagnoses / Procedures Referred By Contac t Referred To Contact CARDIOLOGY Diagnoses Pain in both lower extremities Procedures USV ART DUPLEX LOW Jeff Pulido MD [address] [place] [address] Phone: tel: fax: Referral ID Status Reason Start Date Expiration Date Visits Re quested Visits Authorized [id number] Closed 03/07/2019 04/07/2020 1 1 Reason for Visit * Imaging (Routine) - Closed Specialty Diagnoses / Procedures Referred By Contac t Referred To Contact CARDIOLOGY Diagnoses Bilateral carotid bruits Procedures USV CAROTID DUPLEX ELZA Jeff Grace MD [address] [facility] [address] [place] [address] Phone: tel: fax: Referral ID Status Reason Start Date Expiration Date Visits Re quested Visits Authorized [id number] Closed 03/07/2019 04/07/2020 1 1 Encounter Details Date Type Department Care Team (Latest Contact Info) Description 03/07/2019 2:49 PM CDT - 03/07/2019 11:59 PM CDT Hospital Encounter [facility] [address] [place] [address] Jeff Grace MD [address] [place], [place] [address] Discharge Disposition: Home or Self Care (Routine [...] by mouth nightly as needed. 10/09/2016 2 fluticasone propionate 50 MCG/ACT nasal spray [...] 6 (six) hours as needed. 12/09/2016 2 KLOR-CON M20 20 MEQ tablet 20 mEq 2 (two) times daily. 03/17/2017 9 labetalol 200 MG tablet Take 200 mg by mouth 2 (two) times daily. 9 latanoprost 0.005 % ophthalmic solution INSTILL 1 [...] mg by mouth daily. 0 potassium chloride 20 MEQ Tab CR Take 2 tablets by mouth daily. 9 prazosin 1 MG capsule Take 1 mg by mouth nightly at bedtime. 02/22/2019 1 prazosin 2 MG capsule 02/22/2019 9 sertraline 100 MG tablet Take 150 mg [...] 2 (two) times daily. 04/19/2018 2 warfarin 10 MG tablet TAKE 1/2 A TABLET (5MG) DAILY IN ADDITION TO (1MG) TABLETS TO EQUAL (6.5MG) DAILY DIRECTED 2 03/05/2016 9 documented as of this encounter Plan of Treatment Upcoming Encounters Date Type Department Care Team (Late st Contact Info) Description 09/25/2024 2:00 PM ENVIRONMENTAL SCIENTISTS Appointment [facility] [address] [place] [address] Zayra Powell FNP [address] [place] [address] 10/16/2024 3:30 PM ENVIRONMENTAL SCIENTISTS Office Visit [facility] [address] [place] [phone] Brit Gonzáles MD [address] [place] [address] documented as of this encounter Procedures Procedure Name Priority Date/Time Associated Diagnosis Comments USV CAROTID DUPLEX ELZA Routine 03/07/2019 4:12 PM CDT Bilateral carotid bruits USV ART DUPLEX LOW ELZA Routine 03/07/2019 3:26 PM CDT Pain in both lower extremities documented in this encounter Results * USV CAROTID DUPLEX ELZA (03/07/2019 4:12 PM CDT) Anatomical Region Laterality Modality Neck Ultrasound Jeff Grace MD US VASC Final Result * USV ART DUPLEX LOW ELZA (03/07/2019 3:26 PM CDT) Anatomical Region Laterality Modality Extremity Ultrasound Jeff Grace MD US VASC Final Result documented in this encounter Visit Diagnoses Diagnosis Pain in both lower extremities Bilateral carotid bruits documented in this encounter Care Teams Manager Business Planning Relationship Specialty Start Date End Date Megan Infante MD [address] [facility] [phone] PCP - General FAMILY PRACTICE 04/06/16 Piyush Pandey MD [place] Saw Operator CARDIOVASCULAR DISEASE 04/06/16 12/28/23 Sharmila Davis, PRIMARY HEALTH ORGANISATION MANAGER, CLERICAL ADVISER-C [address] [place] [address] [phone] NURSE PRACTITIONER 01/04/17 04/03/24 Linda Block MD [address] [place] [address] [place] Casey Saw Operator CLINICAL CARDIAC ELECTROPHYSIOLOGY 02/08/17 04/12/23 Jeff Grace MD [address] [place] [address] Consulting Physician INTERNAL MEDICINE 02/20/19 3 documented as of this encounter
--- OUTSIDE RECORDS SUMMARY | 2024-09-03 19:15 | XMS_ITS | Encounter Summary ---
Author Organization [facility] Address [facility] [place] [address] [place] [address] Care Team Providers Care Bull Riveter Name Role Phone Piyush Pandey MD Unavailable Unavailabl Megan Leos MD Primary Care Provider [phone] Sharmila Davis APRN, INKER MACHINE-C Unavailable Linda Block MD Unavailable [phone] Encounter Details Date Type Department Care Team (Late st Contact Info) Description 04/28/2018 Orders Only [facility] [address] [place] [address] Piyush Pandey MD Social History Tobacco Use [...] st Contact Info) Description 09/25/2024 2:00 PM DATA MINING ANALYST Appointment [facility] [address] [place] [address] Zayra Powell, MACHINE ERECTOR [address] [place] [address] 10/16/2024 3:30 PM DATA MINING ANALYST [facility] [address] [place] [address] Brit Gonzáles MD [address] [place] [address] documented as of this encounter Visit Diagnoses Diagnosis S/P AVR- Primary Heart valve replaced by other means CHF (congestive heart failure) ([facility]) Congestive heart failure, unspecified Atrial fibrillation ([facility]) Atrial fibrillation documented in this encounter Care Teams Bull Riveter Relationship Specialty Start Date End Date Megan Infante MD [address] [place] [address] PCP - General FAMILY PRACTICE 04/06/16 Piyush Pandey MD [place] Supervisor Education CARDIOVASCULAR DISEASE 04/06/16 12/28/23 Sharmila Davis APRN, INKER MACHINE-C [address] [facility] [address] [place] [phone] NURSE PRACTITIONER 01/04/17 04/03/24 Linda Block MD [address] [facility] [address] [place] [address] [place] Supervisor Education CLINICAL CARDIAC ELECTROPHYSIOLOGY 02/08/17 04/12/23 documented as of this encounter
--- OUTSIDE RECORDS SUMMARY | 2024-09-03 19:15 | XMS_ITS | Encounter Summary ---
Author Organization [facility] Address [facility] [place] [address] [place] [address] Care Team Providers Care Concrete Pouring Supervisor Name Role Phone Piyush Pandey MD Unavailable Unavailabl e Megan Infante MD Primary Care Provider [phone] Sharmila Davis APRN SUPERVISOR PREPRESS-C Unavailable Linda Block MD Unavailable [phone] Jeff Grace MD Unavailable Reason for Visit * Reason Comments Follow Up PAD Encounter Details Date Type Department Care Team (Late st Contact Info) Description 04/11/2019 1:30 PM CDT Office Visit [facility] AT [address] [place] [address] Jeff Grace MD [address] [place], [place] [id number] Follow Up (PAD) Social History Tobacco Use Types Packs/Day Years [...] Sign Reading Time Taken Comments Blood Pressure 149/74 04/11/2019 1:38 PM CDT Pulse 66 04/11/2019 1:37 PM CDT Temperature - - Respiratory Rate 04/11/2019 1:37 PM CDT Oxygen Saturation - - Inhaled Oxygen Concentration - - Weight 102.1 kg (225 lb) 04/11/2019 1:37 PM CDT Height 167.6 cm (5' 6 ) 04/11/2019 1:37 PM CDT Body Mass Index 36.32 04/11/2019 1:37 PM CDT documented in this encounter Progress Notes * Jeff Grace MD - 04/11/2019 1:30 PM CDT Reason for Visit: Follow Up (PAD) History of Present Illness: 63-year-old male whose cardiovascular history consists of: 1. Bilateral lower extremity pain. 2. Atrial fibrillation. 3. Carotid artery disease. 4. Bioprosthetic aortic valve replacement. 5. COPD and congestive heart failure. Still continues to have leg pain which still seems mainly positional in nature. ASSESSMENT AND PLAN: 1. Bilateral leg pain. I think patient's pain is secondary to arthritis as it is more on standing up and trying to get up from the chair rather than walking. He had recent ABIs that showed right STELLA is 1.24, left STELLA is 1.50. His arterial duplex does not show any significant arterial disease. His ABIs were normal/consistent with calcific disease, which is possible given his diabetes and age. 2. Carotid artery disease. Listed as per his records but carotid duplex did not show any significant stenosis. 3. Lower extremity edema. Much better after decreasing the dose of amlodipine, but not completely resolved. Recommend 20-30 mm compression stockings. 4. HTN and CHF. I will hold off decreasing further amlodipine given borderline elevated blood pressures. Would defer to your office and Dr. Pandey. May benefit from increasing other medications 5. Hyperlipidemia. He is on statins, which I will defer to you. 6. Atrial fibrillation. Patient on chronic Coumadin. Follow-up in 6 months. Medications: Current Outpatient Medications: ??? COMPRESSION STOCKINGS, 20-30 MMHg Compression Stocking Knee High open or closed toe Dx I83.893,Disp: 1 Container, Rfl: 6 ??? albuterol sulfate HFA (PROAIR HFA) 108 (90 BASE) MCG/ACT inhaler, ProAir HFA (albuterol sulfate) HFA aerosol inhaler 90 mcg/actuation; 2 puffs as needed for coughing or wheezing; 0; 14-Nov-2015; Active, Disp: , Rfl: ??? allopurinol 300 MG tablet, , Disp: , Rfl: ??? amlodipine 2.5 MG tablet, Take 1 tablet (2.5 mg total) by mouth daily., Disp: 30 tablet, Rfl: 1 ??? aspirin (ASPIRIN CHILDRENS) 81 MG chewable tablet, Chew 1 tablet by mouth daily., Disp: , Rfl: ??? atorvastatin 80 MG tablet, , Disp: , Rfl: ??? benzonatate 100 MG capsule, TAKE ONE CAPSULE BY MOUTH EVERY 8 HOURS NEEDED FOR COUGH WITH 8 OUNCES OF WATER, Disp: , Rfl: 0 ??? carvedilol 6.25 MG tablet, Take 6.25 mg by mouth 2 (two) times daily., Disp: , Rfl: ??? clonazePAM 1 MG tablet, , Disp: , Rfl: ??? fluticasone propionate 50 MCG/ACT nasal spray, 2 sprays by Each Nare route daily., Disp: , Rfl: ??? furosemide 40 MG tablet, Take 40 mg by mouth daily., Disp: , Rfl: ??? gabapentin 100 MG capsule, , Disp: , Rfl: ??? glipiZIDE XL 5 MG 24 hr tablet, Take 5 mg by mouth daily with breakfast. Do not break or crush tablet, Disp: , Rfl: ??? hydrocodone-acetaminophen 7.5-325 MG tablet, , Disp: , Rfl: ??? KLOR-CON M20 20 MEQ tablet, 20 mEq 2 (two) times daily. , Disp: , Rfl: ??? labetalol 200 MG tablet, Take 200 mg by mouth 2 (two) times daily., Disp: , Rfl: ??? latanoprost 0.005 % ophthalmic solution, INSTILL 1 DROP INTO BOTH EYES AT BEDTIME, Disp: , Rfl:3 ??? losartan 50 MG tablet, , Disp: , Rfl: ??? magnesium oxide 400 (241.3 MG) MG tablet, , Disp: , Rfl: ??? metFORMIN 500 MG tablet, Take 500 mg by mouth 2 (two) times daily with meals., Disp: , Rfl: ??? mometasone-formoterol 200-5 MCG/ACT Aerosol, Inhale into the lungs 2 (two) times daily., Disp: , Rfl: ??? pantoprazole EC 40 MG tablet, Take 40 mg by mouth daily., Disp: , Rfl: ??? potassium chloride 20 MEQ Tab CR, Take 2 tablets by mouth daily., Disp: , Rfl: ??? prazosin 1 MG capsule, , Disp: , Rfl: ??? prazosin 2 MG capsule, , Disp: , Rfl: ??? sertraline 100 MG tablet, 150 mg daily. , Disp: , Rfl: ??? sildenafil 20 MG tablet, Take 40 mg by mouth as needed., Disp: , Rfl: ??? SPIRONOLACTONE 25 MG tablet, TAKE 1 TABLET BY MOUTH EVERY MORNING, Disp: 90 tablet, Rfl: 3 ??? tizanidine 2 MG tablet, , Disp: , Rfl: ??? trazodone 100 MG tablet, Take 200 mg by mouth nightly at bedtime. at bedtime, Disp: , Rfl: 3 ??? triamcinolone 0.5 % cream, , Disp: , Rfl: ??? warfarin 1 MG tablet, , Disp: , Rfl: ??? warfarin 10 MG tablet, TAKE 1/2 A TABLET (5MG) DAILY IN ADDITION TO (1MG) TABLETS TO EQUAL (6.5MG) DAILY DIRECTED, Disp: , Rfl: 2 No Known Allergies Past Medical History: Diagnosis [...] shortness of breath and snoring. Cardiovascular: See HPI Positive for palpitations and leg swelling. Gastrointestinal: Negative for blood in stool and melena. Genitourinary: Negative for dysuria. Musculoskeletal: Positive for joint stiffness/pain. Negative for myalgias. Skin: Negative for rash. Neurological: Negative for tingling/numbness and focal weakness. Endo/Heme/Allergies: Negative for new or significant bruising/bleeding and polydipsia. Psychiatric/Behavioral: Negative for depression and new or significant memory loss. Filed Vitals: 04/11/19 1337 04/11/19 1338 BP: 150/72 149/74 Pulse: 66 Resp: 20 Weight: 102.1 kg (225 lb) Height: 5' 6 (1.676 m) Vitals: 04/11/19 1337 04/11/19 1338 BP Location: Left arm Right arm BP: 150/72 149/74 Pulse: 66 Body mass index is 36.32 kg/m??. Physical Exam Rate/Rhythm: regular rhythm and normal rate . Heart Sounds: normal heart sounds, normal S1 and normal S2 no gallop, no S3 sound, no S4 sound and no murmur. . PMI: PMI not displaced. Pulses: Right Carotid pulses 2+, Left Carotid pulses 2+, Right Femoral pulses 2+, Left Femoral pulses 2+, Right DP pulses 1+, Left DP pulses 2+, Right PT pulses 2+Left PT Pulses 2+, Edema left: 1+. ,Edema Right: 1+. , negative for edema Constitutional: healthy appearance not distressed. . Neck: neck supple no JVD. . Pulmonary/Chest Wall: effort normal and breath sounds normal . HEENT: teeth/gums normal and oropharynx clear and moist. . Abdomen: no tenderness, no mass, no hepatomegaly, no splenomegaly, abdominal aorta not palpably enlarged and no abdominal aortic bruit. . Eyes: conjunctivae normal. Neurological: alert, oriented x 3 and appropriate for situation, . Skin: dry and warm no cyanosis and no clubbing. Musculoskeletal: no kyphosis Cardiovascular Comments: 0-1+ pitting edema bilaterally Diagnoses/Impression: 1. Pain in both lower extremities 2. Mixed hyperlipidemia 3. Essential hypertension Referring Provider: Megan Infante PCP: MEGAN INFANTE MD documented in this encounter Plan of Treatment Upcoming Encounters Date Type Department Care Team (Late st Contact Info) Description 09/25/2024 2:00 PM STRUCTURAL STEEL TRADES WORKER Appointment [facility] [address] [place] [address] Zayra Powell FNP [address] [place] [address] 10/16/2024 3:30 PM STRUCTURAL STEEL TRADES WORKER Office Visit [facility] [facility] [id number] [place] [address] Brit Gonzáles MD [address] [place] [address] documented as of this encounter Visit Diagnoses Diagnosis Pain in both lower extremities- Primary Mixed hyperlipidemia Essential hypertension Unspecified essential hypertension documented in this encounter Care Teams Concrete Pouring Supervisor Relationship Specialty Start Date End Date Megan Infante MD [address] [place] [address] PCP - General FAMILY PRACTICE 04/06/16 Piyush Pandey MD [place] Bottling Machine Operator CARDIOVASCULAR DISEASE 04/06/16 12/28/23 Sharmila Davis APRN, SUPERVISOR PREPRESS-C [address] [facility] [address] [place] [phone] NURSE PRACTITIONER 01/04/17 04/03/24 Linda Block MD [address] [facility] [facility] [address] [place] [phone] [place] Bottling Machine Operator CLINICAL CARDIAC ELECTROPHYSIOLOGY 02/08/17 04/12/23 Jeff Grace MD [address] [facility] [facility] [address] [place] [phone] Consulting Physician INTERNAL MEDICINE 02/20/19 3 documented as of this encounter
--- OUTSIDE RECORDS SUMMARY | 2024-09-03 19:15 | XMS_ITS | Encounter Summary ---
Author Organization [facility] Address [address] [place] [address]. [place] [address] [place] [address] Care Team Providers Care Clinical Application Manager Name Role Phone Piyush Pandey MD Unavailable UnavailMegan Rodriguez MD Primary Care Provider [phone] Sharmila Davis APRN, MACHINE HOSE CUTTER-C Unavailable [phone] Reason for Visit * Reason Onset Date Comments Stress Test 01/05/2017 Encounter Details Date Type Department Care Team (Late st Contact Info) Description 01/05/2017 Telephone [facility] [address] [place] [address] Piyush Pandey MD Stress Test Social History Tobacco Use Types Packs/Day [...] encounter Progress Notes * Lavern Marley - 01/05/2017 12:56 PM CDT Attempted to call pt to advise of Stress test and echocardiogram scheduled for 01/25/17 @ 8:00 in [place]. Will send letter with date, time and location of testing. documented in this encounter Plan of Treatment Upcoming Encounters Date Type Department Care Team (Late st Contact Info) Description 09/25/2024 2:[address] [facility] [address] [place] [address] Zayra Powell, MIDDLE SCHOOL TECHNOLOGY TEACHER [address] [place], [place] [id number] 10/16/2024 3:30 PM HOSE BUILDER Office Visit [facility] [facility] [id number] [place] [address] Brit Gonzáles MD [address] [place], [place] [phone] documented as of this encounter Visit Diagnoses Not on filedocumented in this encounter Care Teams Clinical Application Manager Relationship Specialty Start Date End Date Megan Infante MD [address] [facility] [place] [address] PCP - General FAMILY PRACTICE 04/06/16 Piyush Pandey MD [place] Chain Mortiser Operator CARDIOVASCULAR DISEASE 04/06/16 12/28/23 Sharmila Davis APRN, MACHINE HOSE CUTTER-C [address] [facility] [address] [place] [address] NURSE PRACTITIONER 01/04/17 04/03/24 documented as of this encounter
--- OUTSIDE RECORDS SUMMARY | 2024-09-03 19:15 | XMS_ITS | Encounter Summary ---
Author Organization [facility] Address [facility] [place] [address] [place] [address] Care Team Providers Care Pocketbook Maker Name Role Phone Piyush Pandey MD Unavailable Unavailabl Megan Leos MD Primary Care Provider [phone] Sharmila Davis APRN, MANAGER OF CUSTOMER BILLING-C Unavailable Linda Block MD Unavailable [phone] Encounter Details Date Type Department Care Team (Late st Contact Info) Description 06/10/2016 Abstract [facility] [place] [address] [place] [address] Shubham Callahan MD [address] [place], [place] [address] Social History Tobacco Use Types Packs/Day Years [...] st Contact Info) Description 09/25/2024 2:00 PM AQUATIC CENTRE MANAGER Appointment [facility] [address] [place] [address] Zayra Powell, INSPECTOR EXPERIMENTAL ASSEMBLY [address] [place] [address] 10/16/2024 3:30 PM AQUATIC CENTRE MANAGER Office Visit [facility] [address] [place] [address] Brit Gonzáles MD [address] [place] [address] documented as of this encounter Visit Diagnoses Not on filedocumented in this encounter Care Teams Pocketbook Maker Relationship Specialty Start Date End Date Megan Infante MD [address] [place] [address] PCP - General FAMILY PRACTICE 04/06/16 Piyush Pandey MD [place] Hot Die Picker CARDIOVASCULAR DISEASE 04/06/16 12/28/23 Sharmila Davis APRN, MANAGER OF CUSTOMER BILLING-C [address] [facility] [address] [place] [address] NURSE PRACTITIONER 01/04/17 04/03/24 Linda Block MD [address] [facility] [address] [place] [address] [place] Hot Die Picker CLINICAL CARDIAC ELECTROPHYSIOLOGY 02/08/17 04/12/23 documented as of this encounter
--- OUTSIDE RECORDS SUMMARY | 2024-09-03 19:15 | XMS_ITS | Encounter Summary ---
Author Organization [facility] Address [address] [place] [address]. [place] [address] [place] [address] Care Team Providers Care Impregnating Tank Operator Name Role Phone Piyush Pandey MD Unavailable Unavailabl Mgean Leos MD Primary Care Provider [phone] Sharmila Davis APRN SILVER SERVICE WAITER-C Unavailable Linda Block MD Unavailable [phone] Reason for Visit * Reason Comments Consult Breathing Problem Atrial Fibrillation Aortic Valve Disorder Encounter Details Date Type Department Care Team (Latest Contact Info) Description 04/27/2018 1:30 PM CDT Office Visit [facility] AT [address] [place] [phone] Piyush Pandey MD Consult; Breathing Problem; Atrial Fibrillation; Aortic Valve Disorder Social History Tobacco Use Types Packs/Day Years [...] Sign Reading Time Taken Comments Blood Pressure 115/56 04/28/2018 9:36 AM CDT Pulse - - Temperature - - Respiratory Rate 18 04/28/2018 9:36 AM CDT Oxygen Saturation 95% 04/28/2018 9:36 AM CDT Inhaled Oxygen Concentration - - Weight 101.2 kg (223 lb) 04/28/2018 9:36 AM CDT Height 167.6 cm (5' 6 ) 04/28/2018 9:36 AM CDT Body Mass Index 35.99 04/28/2018 9:36 AM CDT documented in this encounter Patient Instructions * Patient Instructions* Hayley Gee, YUNI - 04/28/2018 9:49 AM CDT Images from the original note were not included. 1. Check labs- BMP,Mag,BNP in 1 week at [facility] 2. Lose weight ( goal 200 lbs)/exercise program 3. Decrease Amlodipine 5 mg daily 4. Start Spironolactone 25 mg daily Patient Education Atrial Fibrillation The Basics Written by the doctors and editors at [facility] What is atrial fibrillation???--??Atrial fibrillation is the most common heart rhythm problem (figure 1). The condition puts you at risk of stroke, heart attack, and other problems. Another term for atrial fibrillation is A-fib. In people with A-fib, the electrical signals that control the heartbeat are abnormal. As a result, the top 2 chambers of the heart stop pumping effectively, and a small amount of the blood that should move out of these chambers gets left behind. As the blood pools, it can start to form clots. Theseclots can travel to the brain through the blood vessels, and cause strokes. In some people, A-fib never goes away. In others, A-fib can come and go, even with treatment. If you had one or more bouts of A-fib, but have a normal heart rhythm now, ask your doctor what you can do to keep A-fib from coming back. Some people can reduce their chances of having A-fib again by: ?Controlling their blood pressure ?Not drinking a lot of alcohol in one sitting (limit to 1 to 2 drinks in one day) ?Cutting down on caffeine ?Getting treatment for an overactive thyroid gland ?Getting regular exercise ?Losing weight (if they are overweight) What are the symptoms of atrial fibrillation???--??Some people with A-fib have no symptoms. When symptoms do occur, they can include: ?Feeling as though your heart is racing, skipping beats, or beating out of sync ?Mild chest tightness or pain ?Feeling lightheaded, dizzy, or like you might pass out ?Having trouble breathing, especially with exercise Is there a test for atrial fibrillation???--??Yes. If your doctor or nurse suspects you have A-fib,he or she will probably do a test called an electrocardiogram. This test, also known as an ECG or EKG, measures the electrical activity in your heart. How is atrial fibrillation treated???--??In some cases, A-fib goes away on its own, even without treatment. But some people do need treatment. Treatment can include one or more of these: ?Medicines to control the speed or rhythm of the heartbeat ?Medicines to keep clots from forming ?A treatment called cardioversion that involves applying a mild electrical current to the heart to fix its rhythm ?Treatments called ablation, which use heat ( radiofrequency ablation ) or cold ( cryoablation ) to destroy the small part of the heart that is sending abnormal electrical signals ?A device called a pacemaker that is implanted in your body and sends electrical signals to the heart to control the heartbeat What will my life be like???--??Many people with A-fib are able to live normal lives. Still, it is important that you take the medicines your doctor prescribes every day. Taking your medicines as directed can help reduce the chances that your A-fib will cause a stroke. It's also a good idea to learn what the signs and symptoms of a stroke are (figure 2). All topics are updated as new evidence becomes available and our peer review process is complete. This topic retrieved from [employer]yp[employer] on: Aug 26, 2017. Topic 67720 Version 11.0 Release: 25.6.2-122 - C26.3 ?2018??[employer]. and/or its affiliates.??All rights reserved. figure 1: Atrial fibrillation This drawing shows where the heart is located in the chest. In atrial fibrillation, the electrical signals that control the heartbeat are abnormal. As a result, the top two chambers of the heart (seearrows) stop pumping effectively, and blood that should move out of these chambers gets left behind. Graphic 96931 Version 3.0 figure 2: Signs of stroke The letters in the word fast help you remember the signs of stroke. If a person shows any of these signs, call an ambulance right away. In the [place] and [place], dial ??[phone]. ?? Graphic 98509 Version 3.0 Consumer Information Use and Disclaimer This information is not specific medical advice and does not replace information you receive from your health care provider. This is only a brief summary of general information. It does NOT include all information about conditions, illnesses, injuries, tests, procedures, treatments, therapies, discharge instructions or life-style choices that may apply to you. You must talk with your health care provider for complete information about your health and treatment options. This information should not be used to decide whether or not to accept your health care provider's advice, instructions or recommendations. Only your health care provider has the knowledge and training to provide advice that is right for you.The use of fypio content is governed by the [employer]io Terms of Use. ??2018 [employer]. All rights reserved. Copyright ?2018??[employer] and/or its affiliates.??All rights reserved. documented in this encounter Progress Notes * Piyush Pandey MD - 04/27/2018 1:30 PM CDT Reason for Visit: Consult; Breathing Problem; Atrial Fibrillation; and Aortic Valve Disorder Medications: Current Outpatient Prescriptions: ??? amlodipine 5 MG tablet, Take 5 mg by mouth daily., Disp: , Rfl: ??? spironolactone 25 MG tablet, Take 25 mg by mouth daily., Disp: , Rfl: ??? acetaminophen (TYLENOL) 500 MG tablet, Take 1 tablet by mouth every 4 (four) hours as needed., Disp: , Rfl: ??? albuterol sulfate HFA (PROAIR HFA) 108 (90 BASE) MCG/ACT inhaler, ProAir HFA (albuterol sulfate) HFA aerosol inhaler 90 mcg/actuation; 2 puffs as needed for coughing or wheezing; 0; 24-Oct-2016; Active, Disp: , Rfl: ??? aspirin (ASPIRIN CHILDRENS) 81 MG chewable tablet, Chew 1 tablet by mouth daily., Disp: , Rfl: ??? atorvastatin 80 MG tablet, , Disp: , Rfl: ??? azithromycin 250 MG tablet, , Disp: , Rfl: ??? carvedilol 6.25 MG tablet, Take 6.25 mg by mouth 2 (two) times daily., Disp: , Rfl: ??? clonazePAM 1 MG tablet, , Disp: , Rfl: ??? COLCRYS 0.6 MG tablet, , Disp: , Rfl: ??? fluticasone propionate 50 MCG/ACT nasal spray, 2 sprays by Each Nare route daily., Disp: , Rfl: ??? furosemide 40 MG tablet, Take 40 mg by mouth daily., Disp: , Rfl: ??? gabapentin 100 MG capsule, , Disp: , Rfl: ??? glipiZIDE 5 MG tablet, Take 5 mg by mouth every morning before breakfast., Disp: , Rfl: ??? hydrocodone-acetaminophen 7.5-325 MG tablet, , Disp: , Rfl: ??? KLOR-CON M20 20 MEQ tablet, , Disp: , Rfl: ??? labetalol 200 MG tablet, Take 200 mg by mouth 2 (two) times daily., Disp: , Rfl: ??? latanoprost 0.005 % ophthalmic solution, INSTILL 1 DROP INTO BOTH EYES AT BEDTIME, Disp: , Rfl:3 ??? lisinopril 20 MG tablet, Take 20 mg by mouth daily., Disp: , Rfl: ??? magnesium oxide 400 (241.3 MG) MG tablet, , Disp: , Rfl: ??? metFORMIN 500 MG tablet, Take 500 mg by mouth 2 (two) times daily with meals., Disp: , Rfl: ??? mometasone-formoterol 200-5 MCG/ACT Aerosol, Inhale into the lungs 2 (two) times daily., Disp: , Rfl: ??? pantoprazole 40 MG tablet, Take 40 mg by mouth daily., Disp: , Rfl: ??? potassium chloride 20 MEQ Tab CR, Take 2 tablets by mouth daily., Disp: , Rfl: ??? prazosin 2 MG capsule, TAKE 1 CAPSULE BY MOUTH AT BEDTIME, Disp: , Rfl: 0 ??? sertraline 50 MG tablet, , Disp: , Rfl: ??? sildenafil 20 MG tablet, Take 40 mg by mouth as needed., Disp: , Rfl: ??? tizanidine 2 MG tablet, , Disp: , Rfl: ??? trazodone 100 MG tablet, Take 200 mg by mouth nightly at bedtime. at bedtime, Disp: , Rfl: 3 ??? triamcinolone 0.5 % cream, , Disp: , Rfl: ? ? warfarin 1 MG tablet, TAKE 1 & 1/2 TABLETS BY MOUTH DAILY IN ADDITION TO (10MG) TABLETS TO EQUAL (6.5MG) DAILY, Disp: , Rfl: 2 ??? warfarin 10 MG tablet, TAKE 1/2 A TABLET (5MG) DAILY IN ADDITION TO (1MG) TABLETS TO EQUAL (6.5MG) DAILY DIRECTED, Disp: , Rfl: 2 No Known Allergies Past Medical History: Diagnosis Date ??? Anxiety ??? Aortic valve stenosis ??? Arthritis ??? Atrial fibrillation s/p PVI/[facility] 10/2015 ??? Carotid disease, bilateral ??? COPD (chronic obstructive pulmonary disease) ??? Coronary artery disease ??? Diabetes mellitus, type II ??? Edema 04/19/2018 2+ pitting ??? Hyperlipidemia ??? Hypertension ??? LV dysfunction ??? Restless leg syndrome ??? S/P aortic valve replacement with bioprosthetic valve 2013 1999, 2013 ??? SOB (shortness of breath) Past Surgical History: Procedure Laterality Date ??? APPENDECTOMY ??? CARDIAC VALVE REPLACEMENT 1999 ??? CARDIAC VALVE REPLACEMENT 2013 ??? CARDIOVERSION EXTERNAL 10/01/2015 ??? CARDIOVERSION EXTERNAL 04/14/2012 ??? HIP ARTHROPLASTY Left ??? KNEE ARTHROPLASTY Bilateral ??? REPAIR ROTATOR CUFF W/ OR W/O ACROMIOPLASTY ??? USE NEMO+CARDIOVERSION 03/24/2016 ??? XA A-FIB ABLATION 10/23/2015 PVI/[facility] Social History Social History ??? Marital status: Spouse name: karthik ??? Number of children: N/A ??? Years of education: N/A Occupational History ??? Not Employed Social History Main Topics ??? Smoking status: Former Smoker ??? Smokeless tobacco: Former User Types: Chew ??? Alcohol use Yes Comment: 6 per week ??? Drug use: No ??? Sexual activity: Not Asked Other Topics Concern ??? Exercise No ??? Special Diet No ??? Caffeine Concern No Social History Narrative Family History Problem Relation Age of Onset ??? Heart Disease Neg Hx Family Status Relation Status ??? Neg Hx Review of Systems Constitutional: Positive for weight gain. Negative for recent unintentional weight loss and new or significant fatigue. HENT: Negative for new or significant hearing loss. Eyes: Negative for blurred vision and double vision. Respiratory: Positive for shortness of breath. Negative for cough and snoring. Cardiovascular: See HPI Positive for palpitations. Gastrointestinal: Negative for blood in stool and melena. Genitourinary: Negative for dysuria. Musculoskeletal: Positive for joint stiffness/pain. Negative for myalgias. Skin: Negative for rash. Neurological: Negative for tingling/numbness and focal weakness. Endo/Heme/Allergies: Negative for new or significant bruising/bleeding and polydipsia. Psychiatric/Behavioral: Negative for depression and new or significant memory loss. Filed Vitals: 04/28/18 0936 BP: 115/56 Resp: 18 SpO2: 95% Weight: 101.2 kg (223 lb) Height: 5' 6 (1.676 m) Body mass index is 35.99 kg/(m^2). Physical Exam Constitutional: He is oriented to person, place, and time. He appears well- developed and well-nourished. No distress. HENT: Nose: No mucosal edema. Mouth/Throat: Oropharynx is clear and moist and mucous membranes are normal. No oropharyngeal exudate. Neck: Neck supple. No JVD present. Cardiovascular: Normal rate, regular rhythm, S1 normal, S2 normal and intact distal pulses. PMI is not displaced. Exam reveals no gallop. No murmur heard. Pulmonary/Chest: Effort normal and breath sounds normal. No respiratory distress. Abdominal: Normal appearance. He exhibits distension. He exhibits no abdominal bruit and no mass. There is no hepatosplenomegaly. There is no tenderness. Musculoskeletal: Normal range of motion. He exhibits no deformity. 1+ edema bilateral Neurological: He is alert and oriented to person, place, and time. Skin: Skin is warm and dry. Bilateral knee scars Psychiatric: He has a normal mood and affect. His behavior is normal. Thought content normal. Diagnoses/Impression: 1. Arthritis 2. Carotid disease, bilateral 3. Chronic anticoagulation 4. Chronic atrial fibrillation 5. Chronic obstructive pulmonary disease, unspecified COPD type 6. Coronary artery disease involving [place] coronary artery of [place] heart without angina pectoris 7. Diabetes mellitus, type II 8. Essential hypertension 9. Mixed hyperlipidemia 10. LV dysfunction 11. Nonrheumatic aortic valve stenosis 12. Permanent atrial fibrillation 13. S/P ablation of atrial fibrillation [place] Documentation Completed: Atrial Fibrillation Referring Provider: No ref. provider found PCP: MEGAN INFANTE MD E WILDLIFE OFFICER * Piyush Pandey MD - 04/27/2018 12:00 AM CDT HISTORY OF PRESENT ILLNESS: Mr. Lay is seen in the [facility] today in consultation. He is a 62-year-old gentleman with a complex cardiovascular history which includes chronic atrial fibrillation, coronary artery disease, aortic valve replacements in 1999 and 2013, left ventricular dysfunction, bilateral carotid artery disease, hypertension, hyperlipidemia, and COPD who was sent to the cardiology clinic for worsening shortness of breath associated with a 15-pound weight gain. Mr. Lay is well known to me from previous evaluation and treatment. Mr. Lay relates that he has been having difficulties with fluid retention in his lower extremities bilaterally. This pedal edema has been associated with a significant weight gain, now up to approximately 23 pounds. Mr. Lay has also had some ongoing difficulties with back discomfort located between the shoulder blades. It seems to last for approximately a half an hour at a time and then resolve. He describes paroxysmal nocturnal dyspnea, but no orthopnea. He has noticed that his oxygen saturations are approximately 90% with exercise. Mr. Lay denies any palpitations, syncope, or near-syncope. He has had some chest discomfort, butthis is atypical in nature and not consistent with angina pectoris. He denies any claudication. He is tolerating his present medications well. A review of the records show that an echocardiogram performed in January of last year showed the bioprosthetic aortic valve to have a peak gradient of 45 mmHg (mean gradient 24 mmHg). There was mild left ventricular hypertrophy with adequate overall left ventricular systolic function with a calculatedLVEF of 54%. Biatrial enlargement was present, but quantification of the pulmonary systolic pressure was not reliable. This seemed unchanged from the echocardiogram from the year before. A Regadenoson nuclear stress test from January of last year showed a fixed perfusion defect consistent with infarction or attenuation in the anterolateral wall. The left ventricular ejection fraction was felt to be 44%. Recent laboratory from last month demonstrated a glycosylated hemoglobin of 6.2%. Serum potassium was 4.5 with a BUN of 26 and creatinine 1.33. The serum INR was 2.4. Serum hemoglobin was 12.0 with hematocrit of 36.0. RECOMMENDATIONS AND PLAN: Mr. Fraziers overall status has deteriorated over the last several days to weeks. He is more short of breath and exhibits a weight gain consistent with fluid retention. I suspect he has is in an element of heart failure, although the fluid retention may have been exacerbated by his Amlodipine therapy. Further evaluation and treatment is warranted. Cardiac risk factor modification will be important in Mr. Lay's long-term care. After a long discussion in the clinic, I have recommended the following to Mr. Lay: 1. Decrease Amlodipine dosing to 1/2 tablet p.o. daily. We will initiate Spironolactone 25 mg p.o. q.a.m. in an effort to mobilize some of the fluid. 2. Followup laboratory will be performed in 1 week at the [facility] to document stable serum electrolytes and renal function. 3. Aggressive attempts at weight loss and participation in a regular exercise program. 4. Echocardiogram to reassess left ventricular function and Mr. Lay's aortic valve prosthesis. 5. Further evaluation and treatment will be based on the results of Mr. Fraziers echocardiogram result and clinical course. E WILDLIFE OFFICER documented in this encounter Plan of Treatment Upcoming Encounters Date Type Department Care Team (Late st Contact Info) Description 09/25/2024 2:00 PM STATE WILDLIFE OFFICER Appointment [facility] [address] [place] [address] Zayra Powell, [facility] [address] [place] [address] 10/16/2024 3:30 PM STATE WILDLIFE OFFICER [facility] [address] [place] [phone] Brit Gonzáles MD [address] [place] [address] documented as of this encounter Visit Diagnoses Diagnosis Bilateral carotid artery disease, unspecified type (CMS/HCC)- Primary S/P aortic valve replacement with bioprosthetic valve Heart valve replaced by other means Coronary artery disease involving [place] coronary artery of [place] heart without angina pectoris LV dysfunction Heart disease, unspecified Chronic atrial fibrillation ([facility]/HCC HHS/HCC) Atrial fibrillation Essential hypertension Unspecified essential hypertension Mixed hyperlipidemia Chronic obstructive pulmonary disease, unspecified COPD type (CMS/HCC HHS/HCC) S/P ablation of atrial fibrillation Other postprocedural status documented in this encounter Care Teams Impregnating Tank Operator Relationship Specialty Start Date End Date Megan Infante MD [address] [place] [address] PCP - General FAMILY PRACTICE 04/06/16 Piyush Pandey MD [place] Account Development Manager CARDIOVASCULAR DISEASE 04/06/16 12/28/23 Sharmila Davis, DANNY, SILVER SERVICE WAITER-C [address] [facility] [address] [place] [phone] NURSE PRACTITIONER 01/04/17 04/03/24 Linda Block MD [address] [facility] [address] [place] [phone] [place] Account Development Manager CLINICAL CARDIAC ELECTROPHYSIOLOGY 02/08/17 04/12/23 documented as of this encounter
--- OUTSIDE RECORDS SUMMARY | 2024-09-03 19:15 | XMS_ITS | Encounter Summary ---
Author Organization [facility] Address [facility] [facility] [place] [address] [place] [address] Care Team Providers Care Post Tronic Machine Operator Name Role Phone Piyush Pandey MD Unavailable UnavailMegan Rodriguez MD Primary Care Provider [phone] Sharmila Davis APRN SENIOR TECHNICAL SUPPORT ANALYST-C Unavailable [phone] Reason for Referral * Imaging (Routine) - Completed Specialty Diagnoses / Procedures Referred By Yung sequeira Referred To Contact CARDIOLOGY Diagnoses Aortic valve stenosis Chest pain Dyspnea Procedures USE ECHOCARDIOGRAM Pyiush Pandey MD [facility] [address] [place] [address] Phone: tel: Referral ID Status Reason Start Date Expiration Date V isits Requested Visits Authorized [id number] Completed 01/06/2017 02/06/2018 1 1 * Imaging (Routine) - Completed Specialty Diagnoses / Procedures Referred By Yung sequeira Referred To Contact CARDIOLOGY Diagnoses Aortic valve stenosis Chest pain Dyspnea Procedures NM PHARM NUC STRESS TEST 1DAY Piyush Pandey MD [facility] [address] [place] [address] Phone: tel: fax: Referral ID Status Reason Start Date Expiration Date V isits Requested Visits Authorized [id number] Completed 01/06/2017 02/06/2018 1 1 Encounter Details Date Type Department Care Team (Late st Contact Info) Description 01/06/2017 Orders Only [facility] [address] [place] [address] Piyush Pandey MD Social History Tobacco Use [...] st Contact Info) Description 09/25/2024 2:00 PM INVENTORY CONTROL ANALYST Appointment [facility] [address] [place] [address] Zayra Powell, STEREOPLOTTER OPERATOR [address] [place] [address] 10/16/2024 3:30 PM INVENTORY CONTROL ANALYST Office Visit [facility] [address] [place] [address] Brit Gonzáles MD [address] [place] [address] Scheduled Orders Name Type Priority Associated Diagnoses Orde r Schedule USE ECHOCARDIOGRAM ECHO Routine Aortic valve stenosis Chest pain Dyspnea Expected: 01/25/2017, Expires: 01/06/2018 documented as of this encounter Procedures Procedure Name Priority Date/Time Associated Diagnosis Comments NM PHARM NUC STRESS TEST 1DAY W TRACING Routine 01/25/2017 Aortic valve stenosis Chest pain Dyspnea documented in this encounter Results * NM PHARM NUC STRESS TEST 1DAY (01/25/2017) Anatomical Region Laterality Modality Cardiac Nuclear Medicine us Piyush Pandey MD NUC MED Final Resul t documented in this encounter Visit Diagnoses Diagnosis Aortic valve stenosis- Primary Aortic valve disorders Chest pain Chest pain, unspecified Dyspnea Other dyspnea and respiratory abnormality documented in this encounter Care Teams Post Tronic Machine Operator Relationship Specialty Start Date End Date Megan Infante MD [address] [place] [address] PCP - General FAMILY PRACTICE 04/06/16 Piyush Pandey MD [place] [facility] Department Chairperson CARDIOVASCULAR DISEASE 04/06/16 12/28/23 Sharmila Davis, REGIONAL HR MANAGER, SENIOR TECHNICAL SUPPORT ANALYST-C [address] [facility] [address] [place] [address] NURSE PRACTITIONER 01/04/17 04/03/24 documented as of this encounter
--- OUTSIDE RECORDS SUMMARY | 2024-09-03 19:15 | XMS_ITS | Encounter Summary ---
Author Organization [facility] Address [facility] [place] [address] [place] [address] Care Team Providers Care Hydroelectric Operator Name Role Phone Amauri Pandey MD Unavailable Unavailabl e Megan Infante MD Primary Care Provider [phone] Sharmila Davis APRN, NP-C Unavailable [phone] Linda Block MD Unavailable [phone] Jeff Grace MD Unavailable Reason for Visit * Imaging (Routine) - Closed Specialty Diagnoses / Procedures Referred By Contac t Referred To Contact RADIOLOGY Diagnoses Coronary artery disease involving [place] coronary artery of [place] heart without angina pectoris S/P aortic valve replacement with bioprosthetic valve Procedures USE ECHOCARDIOGRAM W CON USE ECHOCARDIOGRAM Amauri Pandey MD Referral ID Status Reason Start Date Expiration Date Visits Re quested Visits Authorized [id number] Closed 05/02/2019 06/01/2020 1 1 Encounter Details Date Type Department Care Team (Latest Contact Info) Description 05/05/2019 9:48 AM CDT - 05/05/2019 11:49 AM CDT Hospital Encounter [facility] Non Invasive Cardiology - [facility] [address] [place] [address] Amauri Pandey MD Discharge Disposition: Home or [...] Contact Info) Description 09/25/2024 2:00 PM 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 [address] [place] [address] Zayra Powell, MANAGER FLEET [address] [place] [address] 10/16/2024 3:30 PM GAS STATION SUPERVISOR Office Visit [facility] [place] [address] Brit Gonzáles MD [address] [place] [address] documented as of this encounter Procedures Procedure Name Priority Date/Time Associated Diagnosis Comments USE ECHOCARDIOGRAM W CON Routine 05/05/2019 10:49 AM CDT Coronary artery disease involving [place] coronary artery of [place] heart without angina pectoris S/P aortic valve replacement with bioprosthetic valve documented in this encounter Results * USE ECHOCARDIOGRAM W CON (05/05/2019 10:49 AM CDT) Anatomical Region Laterality Modality NA Echocardiogram 05/05/2019 10:0 4 AM CDT Narrative 05/08/2019 2:46 AM CDT ?Echocardiography Report Pat.Name: ??OBIE SIMS ?Pat.ID: ?[id number] ? St.Date: ?? 05/05/2019 ? Refer.: ??[id number] ROBERT Exam Time: 10:04:00 AM ? Study Type:ECHO W/CONTRAST COMPLETE Height: ?170.18cm ?Weight: ?102.06kg ? BSA: ? 2.13 m2 ?Age: ??1955,63Y ? Sex: ? MALE ?HR: ?86 bpm ? Sonogrphr: Keegan Carlin RD ?Pat. Stat.:Outpatient ? CPT: ?? C8929 ? Reason for Study:Aortic stenosis, Coronary artery disease Procedures:2D, M-mode, Doppler, Color Flow, Definity was used to enhance endocardial definition. ++++++++++++++++++++++++++++++++++++ SUMMARY: ++++++++++++++++++++++++++++++++++++ Technically difficult study due to body habitus. Mild to moderate concentric left ventricular hypertrophy. ??The left ventricular systolic function is lower limits of normal. The calculated ejection fraction is 53%. The left atrial volume is moderately increased. Bioprosthetic aortic valve with a peak gradient of 25 mmHg (mean gradient of 14 mmHg). ??No evidence of aortic regurgitation. Trivial degree of mitral valve stenosis (mean gradient 3 mmHg). Mitral regurgitation, poorly quantitated, possibly trace. Unable to reliably quantitate pulmonary systolic pressure. ++++++++++++++++++++++++++++++++++++ FINDINGS: ++++++++++++++++++++++++++++++++++++ LV: ? The left ventricular size is normal. The left ventricular ?systolic ??function is lower limits of normal. The calculated ?ejection ??fraction is 53%. Mild to moderate concentric left ?ventricular ??hypertrophy. The septal E/e' is elevated at ?>15. ??The lateral E/e' is elevated at >11. The average E/e' ?is ??elevated at >12 and EF > or equal to 50. Left ?ventricular ??diastolic function is not accessible due to ?atrial ??fibrillation. WM: ? Wall motion appears normal in all segments. LVOT: ? The left ventricular outflow tract size is normal. RV: ? The right ventricular size is normal. Right ventricular ?systolic ??function is normal. LA: ? The left atrial volume is moderately increased (42-48 ?ml/M2). RA: ? Right atrial size is normal. TING: ? No evidence of pericardial effusion. AO: ? Aortic root is not dilated. PA: ? Estimated right atrial pressure of 5 mmHg. Unable to ?reliably ??quantitate pulmonary systolic pressure. SVn: ?Inferior vena cava is normal. Inferior vena cava shows >50% ?collapse ??with respiration consistent with normal right ?atrial ??pressure. Other: ?Technically difficult exam due to body habitus. AV: ? The peak velocity across the aortic valve measures 2.5m/sec ?with ??a peak gradient of 25mmHg and a mean gradient of ?14mmHg. ??The calculated aortic valve area is 1.18cm2; iAVA ?is ??0.6cm2/m2. ? cm2. No evidence of ?ting-prosthetic ??aortic valve regurgitation. No evidence of ?central ??prosthetic aortic valve regurgitation. ?Dimensionless ??index of 0.3. The aortic valve acceleration ?time ??is 96ms. The LVOT stroke volume index is 33ml/m2. 23mm ?Richardson ??Bioprosthetic AVR 05/23/2014 MV: ? Doppler assessment inadequate to accurately assess the ?degree ??of mitral regurgitation. Trivial degree of mitral ?valve ??stenosis. Mildly calcified anterior and posterior ?mitral ??annulus. The mean gradient across the mitral valve ?is ??3mmHg at a heart rate of 74bpm. The mitral valve area by ?continuity ??equation is 2.1cm2; MVA by P1/2 is 2.5cm2.. PV: ? The pulmonic valve is normal There is trace pulmonic ?regurgitation TV: ? Doppler assessment inadequate to accurately assess the ?degree ??of tricuspid regurgitation. No evidence of tricuspid ?valve ??stenosis. ++++++++++++++++++++++++++++++++++++ MEASUREMENTS: ++++++++++++++++++++++++++++++++++++ ?DOPPLER LVOT ?? LVOTpkPG ? 3 mmHg ?LVOTmnPG ? 2 mmHg LVOTpkVel ? 91 cm/s (70-110)+ LVOT SV ? 69 ml ?? LVOT TVI ?19.8 cm ?LVOT CO ?83.335 ml/s AV Forward Flow AV TVI ?58 cm ?AV pkPG ? 25 mmHg AV pkVel ? 249 cm/s (100-170)+* Area (TVI) ?1.18 cm2 ??(3-5)* AV mnVel ? 171 cm/s ?Area (Wilbert) ?1.26 cm2 ??(3-5)* AV mnPG ? 14 mmHg ? MV Forward Flow MV DeTm ?191 ms ?MV mnPG ?3 mmHg MVA P1/2t ?2.5 cm2 ??(4-6)* ?? MV pkPG ?8 mmHg MV P1/2t ?88 ms ?? (30-60)+* MV pkE ? 124 cm/s (60-130)+ TV Regurg Flow TV pkPG ? 31 mmHg ?TV pkVel ? 280 cm/s (30- 70)* Lat E' ?? Lat e ? 6.55 cm/s ? Lat E/E' ?? Lat E/e ? 18.9 ? Med E' ?? Med e ? 4.95 cm/s ? Med E/E' ?? Med E/e ? 25.1 ? AV DI ?? Value ?0.3 ? EMILE (VTI) Index ?? Value ? 0.55 ? AV Antegrade Flow AC ?96 ms ?Acceleration Sl ??2585 cm/s2 LV Mass 2D ?? Value ?236 g ? LV Mass Index 2D ?? Value ?111 g/m2 ?2D Left Ventricle ?? LVIDd ? 4.63 cm ?? (3.6-5.2) LV EF(Bi-Plane) ?53 % ?(63-77)* LVIDs ?3.5 cm ?? (2.3-3.9) LVPW ?? LVPWd ? 1.18 cm ?LVPWth ?2.54 % ?? LVPWs ? 1.21 cm ? Ventricular Septum ?? IVSd ?1.45 cm ?IVSs ?1.61 cm ?? Aorta ?? Ao Rtd ? 3.3 cm ?? (zsc 1) Ao Asc ? 3 cm ?? (zsc 1.4) LVOT ?? LVOT ? 2.1 cm ? Ratios ?? IVS LA Biplane LAVol I BP ?48.4 ml/m2 ? Signed 05/08/2019 02:46 AM Amauri Pandey M.D. Procedure Note Amauri Pandey MD - 05/08/2019 Echocardiography Report Pat.Name: OBIE SIMS Pat.ID: [id number] St.Date: 05/05/2019 Refer.MD: [id number], AMAURI PANDEY Exam Time: 10:04:00 AM Study Type:ECHO W/CONTRAST COMPLETE Height: 170.18cm Weight: 102.06kg BSA: 2.13 m2 Age: 11 1955,63Y Sex: MALE HR: 86 bpm Sonogrphr: Keegan Carlin [facility] Pat. Stat.:Outpatient CPT: C8929 Reason for Study:Aortic stenosis, Coronary artery disease Procedures:2D, M-mode, Doppler, Color Flow, Definity was used to enhance endocardial definition. ++++++++++++++++++++++++++++++++++++ SUMMARY: ++++++++++++++++++++++++++++++++++++ Technically difficult study due to body habitus. [...] systolic pressure. ++++++++++++++++++++++++++++++++++++ FINDINGS: ++++++++++++++++++++++++++++++++++++ LV: The left ventricular size is normal. The left ventricular systolic function is lower limits of normal. The calculated ejection fraction is 53%. Mild to moderate concentric left ventricular hypertrophy. The septal E/e' is elevated at >15. The lateral E/e' is elevated at >11. The average E/e' is elevated at >12 and EF > or equal to 50. Left ventricular diastolic function is not accessible due to atrial fibrillation. WM: Wall motion appears normal in all segments. LVOT: The left ventricular outflow tract size is normal. RV: The right ventricular size is normal. Right ventricular systolic function is normal. LA: The left atrial volume is moderately increased (42-48 ml/M2). RA: Right atrial size is normal. TING: No evidence of pericardial effusion. AO: Aortic root is not dilated. PA: Estimated right atrial pressure of 5 mmHg. Unable to reliably quantitate pulmonary systolic pressure. SVn: Inferior vena cava is normal. Inferior vena cava shows >50% collapse with respiration consistent with normal right atrial pressure. Other: Technically difficult exam due to body habitus. AV: The peak velocity across the aortic valve measures 2.5m/sec with a peak gradient of 25mmHg and a mean gradient of 14mmHg. The calculated aortic valve area is 1.18cm2; iAVA is 0.6cm2/m2. cm2. No evidence of ting-prosthetic aortic valve regurgitation. No evidence of central prosthetic aortic valve regurgitation. Dimensionless index of 0.3. The aortic valve acceleration time is 96ms. The LVOT stroke volume index is 33ml/m2. 23mm Richardson Bioprosthetic AVR 05/23/2014 MV: Doppler assessment inadequate to accurately assess the degree of mitral regurgitation. Trivial degree of mitral valve stenosis. Mildly calcified anterior and posterior mitral annulus. The mean gradient across the mitral valve is 3mmHg at a heart rate of 74bpm. The mitral valve area by continuity equation is 2.1cm2; MVA by P1/2 is 2.5cm2.. PV: The pulmonic valve is normal There is trace pulmonic regurgitation TV: Doppler assessment inadequate to accurately assess the degree of tricuspid regurgitation. No evidence of tricuspid valve stenosis. ++++++++++++++++++++++++++++++++++++ MEASUREMENTS: ++++++++++++++++++++++++++++++++++++ DOPPLER LVOT LVOTpkPG 3 mmHg LVOTmnPG 2 mmHg LVOTpkVel 91 cm/s (70-110)+ LVOT SV 69 ml LVOT TVI 19.8 cm LVOT CO 83.335 ml/s AV Forward Flow AV TVI 58 cm AV pkPG 25 mmHg AV pkVel 249 cm/s (100-170)+* Area (TVI) 1.18 cm2 (3-5)* AV mnVel 171 cm/s Area (Wilbert) 1.26 cm2 (3-5)* AV mnPG 14 mmHg MV Forward Flow MV DeTm 191 ms MV mnPG 3 mmHg MVA P1/2t 2.5 cm2 (4-6)* MV pkPG 8 mmHg MV P1/2t 88 ms (30-60)+* MV pkE 124 cm/s (60-130)+ TV Regurg Flow TV pkPG 31 mmHg TV pkVel 280 cm/s (30-70)* Lat E' Lat e 6.55 cm/s Lat E/E' Lat E/e 18.9 Med E' Med e 4.95 cm/s Med E/E' Med E/e 25.1 AV DI Value 0.3 EMILE (VTI) Index Value 0.55 AV Antegrade Flow AC 96 ms Acceleration Sl 2585 cm/s2 LV Mass 2D Value 236 g LV Mass Index 2D Value 111 g/m2 2D Left Ventricle LVIDd 4.63 cm (3.6-5.2) LV EF(Bi-Plane) 53 % (63-77)* LVIDs 3.5 cm (2.3-3.9) LVPW LVPWd 1.18 cm LVPWth 2.54 % LVPWs 1.21 cm Ventricular Septum IVSd 1.45 cm IVSs 1.61 cm Aorta Ao Rtd 3.3 cm (zsc 1) Ao Asc 3 cm (zsc 1.4) LVOT LVOT 2.1 cm Ratios IVS LA Biplane LAVol I BP 48.4 ml/m2 Signed 05/08/2019 02:46 AM Amauri Pandey M.D. Amauri Pandey MD ECHO Final Resul t documented in this encounter Visit Diagnoses Diagnosis Coronary artery disease involving [place] coronary artery of [place] heart without angina pectoris S/P aortic valve replacement with bioprosthetic valve Heart valve replaced by other means documented in this encounter Administered Medications Inactive Administered Medications - up to 3 most recent administrations Medication Order MAR Action Action Date Dose Rate Site perflutren lipid microsphere (DEFINITY) injection 1 mL 1 mL, Intravenous, IMG once as needed, Contrast, 1 dose, Starting on Wed05/05/19 at 1049, Until Wed05/05/19 at 1040, Administer over 30-60 seconds. Follow with 10 mL saline flush. Given 05/05/2019 10:40 AM CDT 1 mL documented in this encounter Care Teams Hydroelectric Operator Relationship Specialty Start Date End Date Megan Infante MD [address] [place] [id number] PCP - General FAMILY PRACTICE 04/06/16 Amauri Pandey MD [place] [employer] Forward[employer] CARDIOVASCULAR DISEASE 04/06/16 12/28/23 Sharmila Davis APRN, RESOURCE ROOM TEACHER-C [address] [facility] [address] [place] [address] NURSE PRACTITIONER 01/04/17 04/03/24 Linda Block MD [address] [facility] [address] [place] [address] [place] [employer] CLINICAL CARDIAC ELECTROPHYSIOLOGY 02/08/17 04/12/23 Jeff Grace MD [address] [place] [address] Consulting Physician INTERNAL MEDICINE 02/20/19 3 documented as of this encounter
--- OUTSIDE RECORDS SUMMARY | 2024-09-03 19:15 | XMS_ITS | Encounter Summary ---
Author Organization [facility] Address [address] [place] [address]. [place] [address] [place] [address] Care Team Providers Care Soldering Machine Operator Name Role Phone Piyush Pandey MD, Amy E MD Primary Care Provider [phone] Reason for Visit * Reason Comments Image (SCAN) Sleep Study (SCAN) ECG (SCAN) Encounter Details Date Type Department Care Team (Late st Contact Info) Description 09/15/2016 Scan [facility] [address] [place] [address] Scanned, Documents Image (SCAN); Sleep Study (SCAN); ECG (SCAN) Social History Tobacco Use [...] st Contact Info) Description 09/25/2024 2:00 PM PARADICHLOROBENZENE TENDER Appointment [facility] [address] [place] [address] Zayra Powell, [facility] [address] [place] [address] 10/16/2024 3:30 PM PARADICHLOROBENZENE TENDER Office Visit [facility] [address] [address] Brit Gonzáles MD [address] [place] [address] documented as of this encounter Procedures Procedure Name Priority Date/Time Associated Diagnosis Comments ECG GENERIC (SCAN ORDER) Routine 09/15/2016 SLEEP STUDY GENERIC (SCAN ORDER) Routine 07/21/2016 SLEEP STUDY GENERIC (SCAN ORDER) Routine 06/11/2016 IMAGE GENERIC Routine 04/03/2016 documented in this encounter Results * ECG (09/15/2016) us Documents Scanned SCANNING Final Result * SLEEP STUDY (07/21/2016) us Documents Scanned SCANNING Final Result * SLEEP STUDY (06/11/2016) us Documents Scanned SCANNING Final Result * IMAGE STUDY (04/03/2016) Anatomical Region Laterality Modality Other us Documents Scanned SCANNING Final Result documented in this encounter Visit Diagnoses Not on filedocumented in this encounter Care Teams Soldering Machine Operator Relationship Specialty Start Date End Date Megan Infante MD [address] [facility] [place] [address] PCP - General FAMILY PRACTICE 04/06/16 Piyush Pandey MD [place] Policy Change Clerk CARDIOVASCULAR DISEASE 04/06/16 12/28/23 documented as of this encounter
--- OUTSIDE RECORDS SUMMARY | 2024-09-03 19:15 | XMS_ITS | Encounter Summary ---
Author Organization [facility] Address [facility] [address] [place] [address] Care Team Providers Care Entrepreneurial Finance Professor Name Role Phone Piyush Pandey MD Unavailable Unavailabl Megan Leos MD Primary Care Provider [phone] Sharmila Davis APRN, TECHNICAL PRODUCER-C Unavailable Reason for Visit * Reason Comments Follow Up chest pain Encounter Details Date Type Department Care Team (Latest Contact Info) Description 01/04/2017 9:00 AM CDT Office Visit [facility] 1ST FLOOR [address] [place], [place] [id number] Sharmila Davis APRN, TECHNICAL PRODUCER-C [address] [facility] [address] [place] [phone] Follow Up (chest pain) Social History Tobacco Use Types Packs/Day [...] Sign Reading Time Taken Comments Blood Pressure 148/98 01/04/2017 9:19 AM CDT Pulse 90 01/04/2017 9:19 AM CDT Temperature - - Respiratory Rate 24 01/04/2017 9:19 AM CDT Oxygen Saturation - - Inhaled Oxygen Concentration - - Weight 90.8 kg (200 lb 3.2 oz) 01/04/2017 9:19 A M CDT Height 167.6 cm (5' 6 ) 01/04/2017 9:19 AM CDT Body Mass Index 32.31 01/04/2017 9:19 AM CDT documented in this encounter Progress Notes * Sharmila Davis NP-See - 01/04/2017 9:00 AM CDT [address] [address] [place] [address] PATIENT FOLLOW-UP VISIT FROM: The Office of Sharmila Davis NP supervised by Piyush Pandey III, M.D. RE: Mendez Lay : 1955 Reason for Visit: Follow Up (chest pain) Recommendations/Plan: Mr. Lay continues to have shortness of breath, but has now developed chest pain. In the past, his symptoms have been attributed to a combination of his atrial fibrillation, COPD, and prosthetic valve mismatch, exacerbated by untreated sleep apnea and hypertension. His new onset chest pain with associated orthopnea and paroxysmal nocturnal dyspnea are not exactly typical of angina or congestiveheart failure. His last cardiac catheterization in 2013 revealed only mild coronary artery disease with severe pulmonary hypertension. His beta kim has been discontinued, but fortunately his heart rate is still acceptable. Beta blockade is recommended for his coronary artery disease, chronic systolic heart failure, and rate control for his atrial fibrillation. His blood pressure is elevated as well. Further investigation into the etiology of his chest pain, and adjustment of his medical therapy seem most appropriate at the present time. I have recommended the following to Mr. Lay: 1. Chest Pain, Orthopnea. We ordered labs to rule out various etiologies of his symptoms. His BNP and D-dimer were not elevated. His electrolytes and renal function were within normal limits. 2. S/p Aortic Valve Replacement. We will order an echocardiogram to ensure his aortic valve replacement status has not significantly changed. If his aortic stenosis has progressed, this could be contributing his anginal and dyspneic symptoms. 3. LV Dysfunction. Overall, he appears euvolemic upon exam despite his symptoms. He is taking an STEVIE inhibitor and diuretic, but his beta kim has been discontinued at some point this past year. We will contact Dr. Infante's office to clarify the reason. Restarting his carvedilol is preferred from a cardiology standpoint. 4. Hypertension. If we are unable to resume his beta kim, we can increase his lisinopril. His hypertension has been known to worsen his dyspnea in the past. 5. Atrial Fibrillation. He is in atrial fibrillation in the office today, and relatively rate controlled. He is anticoagulated with warfarin, which is managed by Dr. Infante. He requested that we drawhis INR today along with his blood work. We will forward his INR of 3.[address] Infante. Further recommendations pending clinical course. If he continues to suffer from chest pain with no true etiology identified, we may need to consider stress testing to rule out progression of his coronary artery disease. I have encouraged him to contact me in the meantime should he have any questions or problems, and if his symptoms worsen, he may proceed to the emergency room for rapid evaluation. Medications: Current Outpatient Prescriptions: ??? acetaminophen (TYLENOL) 500 MG tablet, Take 1 tablet by mouth every 4 (four) hours as needed., Disp: , Rfl: ??? albuterol sulfate HFA (PROAIR HFA) 108 (90 BASE) MCG/ACT inhaler, ProAir HFA (albuterol sulfate) HFA aerosol inhaler 90 mcg/actuation; 2 puffs as needed for coughing or wheezing; 0; 14-Nov-2015; Active, Disp: , Rfl: ??? aspirin (ASPIRIN CHILDRENS) 81 MG chewable tablet, Chew 1 tablet by mouth daily., Disp: , Rfl: ??? lisinopril 20 MG tablet, Take 20 mg by mouth daily., Disp: , Rfl: ??? trazodone 100 MG tablet, Take 200 mg by mouth nightly at bedtime. at bedtime, Disp: , Rfl: 3 ? ? warfarin 1 MG tablet, TAKE 1 & 1/2 TABLETS BY MOUTH DAILY IN ADDITION TO (10MG) TABLETS TO EQUAL (6.5MG) DAILY, Disp: , Rfl: 2 ??? warfarin 10 MG tablet, TAKE 1/2 A TABLET (5MG) DAILY IN ADDITION TO (1MG) TABLETS TO EQUAL (6.5MG) DAILY DIRECTED, Disp: , Rfl: 2 ??? amlodipine 10 MG tablet, , Disp: , Rfl: ??? atorvastatin 80 MG tablet, , Disp: , Rfl: ??? clonazePAM 1 MG tablet, , Disp: , Rfl: ??? furosemide 40 MG tablet, Take 40 mg by mouth daily., Disp: , Rfl: 3 ??? hydrocodone-acetaminophen 7.5-325 MG tablet, , Disp: , Rfl: ??? magnesium oxide 400 (241.3 MG) MG tablet, , Disp: , Rfl: ??? prazosin 2 MG capsule, TAKE 1 CAPSULE BY MOUTH AT BEDTIME, Disp: , Rfl: 0 ??? tizanidine 2 MG tablet, , Disp: , Rfl: No Known Allergies History of Present Illness: Mr. Lay is a pleasant 61 year-old male seen in the cardiology clinic today for a followup visit regarding shortness of breath and chest pain. He has a history of mild coronary artery disease, paroxysmal atrial fibrillation s/p PVI/WACA per Dr. Block on 10/24/15 and cardioversion in 03/2016, aortic stenosis s/p mechanical valve replacement in 1999 and bioprosthetic valve replacement 2013, LV dysfunction, mild carotid stenosis, hypertension, hyperlipidemia, type II diabetes, and COPD. He developed left upper chest pain with radiation to his back approximately 3-4 days ago. The pain is sharp, and has radiated down his left arm at times. It has been progressive, and is now present most of the time. He is unable to recall whether the pain is worse with exertion, but he denies associated nausea or diaphoresis. He has taken narcotic pain relievers, which does not help the pain. He has chronic shortness of breath, but states that he is more concerned about the chest pain. He is unable to sleep due to the pain. He will awaken with shortness of breath, and admits that he may have slight orthopnea. Occasionally, inspiration will worsen the pain. He denies any claudication. He denies any pedal edema. He has occasional palpitations, but denies lightheadedness or syncope. He denies signs and symptoms of CVA or TIA. He seems to be tolerating his present medications well without reported side effects. He denies signs of bleeding. Evaluation during the clinic visit included an EKG which confirmed the presence of atrial fibrillation at a rate of 90 beats per minute. His most recent echocardiogram from 05/14/16 revealed a left ventricular ejection fraction of 45%, a bioprosthetic aortic valve replacement with a peak velocity 3.32 m/s, peak gradient 46 mmHg, mean gradient 24 mmHg, and aortic valve area of 0.85-0.90 cm??, and mild mitral and tricuspid regurgitation. Past Medical History: Diagnosis Date ??? Anxiety ??? Aortic valve stenosis ??? Arthritis ??? Atrial fibrillation s/p PVI/WACA 10/2015 ??? Carotid disease, bilateral ??? COPD (chronic obstructive pulmonary disease) ??? Coronary artery disease ??? Diabetes mellitus, type II ??? Hyperlipidemia ??? Hypertension ??? LV dysfunction ??? Restless leg syndrome ??? S/P aortic valve replacement with bioprosthetic valve 2013 Past Surgical History: Procedure Laterality Date ??? ABLATE HEART DYSRHYTHM FOCUS 10/23/2015 PVI/WACA ??? APPENDECTOMY ??? CARDIAC VALVE REPLACEMENT 1999 ??? CARDIAC VALVE REPLACEMENT 2013 ??? CARDIOVERSION EXTERNAL 10/01/2015 ??? CARDIOVERSION EXTERNAL 03/2016 ??? HIP ARTHROPLASTY Left ??? KNEE ARTHROPLASTY Bilateral ??? REPAIR ROTATOR CUFF W/ OR W/O ACROMIOPLASTY Social History Social History ??? Marital status: Spouse name: karthik ??? Number of children: N/A ??? Years of education: N/A Occupational History ??? Not Employed Social History Main Topics ??? Smoking status: Former Smoker ??? Smokeless tobacco: Former User Types: Chew ??? Alcohol use No ??? Drug use: No ??? Sexual activity: Not Asked Other Topics Concern ??? Exercise No ??? Special Diet No ??? Caffeine Concern No Social History Narrative Family History Problem Relation Age of Onset ??? Heart Disease Neg Hx Family Status Relation Status ??? Neg Hx Review of Systems Constitutional: Negative for recent unintentional weight gain, recent unintentional weight loss andnew or significant fatigue. HENT: Negative for new or significant hearing loss. Eyes: Negative for blurred vision and double vision. Respiratory: Positive for shortness of breath. Negative for cough and snoring. Cardiovascular: See HPI Positive for chest pain.Negative for orthopnea. Gastrointestinal: Negative for blood in stool and melena. Genitourinary: Negative for dysuria. Musculoskeletal: Positive for joint stiffness/pain. Negative for myalgias. Skin: Negative for rash. Neurological: Negative for tingling/numbness and focal weakness. Endo/Heme/Allergies: Negative for new or significant bruising/bleeding and polydipsia. Psychiatric/Behavioral: Negative for depression and new or significant memory loss. Filed Vitals: 01/04/17 0919 BP: (!) 148/98 Pulse: 90 Resp: 24 Weight: 90.8 kg (200 lb 3.2 oz) Height: 5' 6 (1.676 m) Physical Exam Constitutional: He is oriented to person, place, and time. He appears well- developed and well-nourished. No distress. HENT: Mouth/Throat: Mucous membranes are not pale and not cyanotic. Eyes: There is no xanthelasma. Neck: Neck supple. Normal carotid pulses and no JVD present. Carotid bruit is not present. Cardiovascular: Normal rate, S1 normal and S2 normal. An irregularly irregular rhythm present. Examreveals no S3 and no S4. No murmur heard. Pulses: Dorsalis pedis pulses are 2+ on the right side, and 2+ on the left side. Posterior tibial pulses are 2+ on the right side, and 2+ on the left side. Pulmonary/Chest: Effort normal and breath sounds normal. Abdominal: Soft. Normal appearance. He exhibits no abdominal bruit and no mass. There is no hepatosplenomegaly. There is no tenderness. Musculoskeletal: He exhibits no edema. Tenderness to palpation of left scapula. No tenderness to left chest. No severe kyphoscoliosis. Neurological: He is oriented to person, place, and time. Neuro exam grossly normal. Skin: Skin is warm, dry and intact. No cyanosis. Nails show no clubbing. Without evidence of xanthoma. Psychiatric: He has a normal mood and affect. Office Visit on 01/04/2017 Component Date Value Ref Range Status ??? SODIUM 01/04/2017 137 135 - 147 MMOL/L Final ??? POTASSIUM 01/04/2017 4.9 3.5 - 5.0 MMOL/L Final ??? CHLORIDE 01/04/2017 104 98 - 107 MMOL/L Final ??? CO2 01/04/2017 24.7 22 - 29 MMOL/L Final ??? GLUCOSE 01/04/2017 160* 70 - 109 MG/DL Final ??? BUN 01/04/2017 24 8 - 26 MG/DL Final ??? CREATININE 01/04/2017 1.20 0.70 - 1.30 MG/DL Final ??? CALCIUM 01/04/2017 9.4 8.8 - 10.0 MG/DL Final ? ? eGFR Non-Afr. Amer. 01/04/2017 61 >60 ML/MIN/1.73 M2 Final ? ? eGFR Afr. Amer. 01/04/2017 74 >60 ML/MIN/1.73 M2 Final ??? ANION GAP 01/04/2017 8.3 MMOL/L Final ??? OSMOLALITY (CALC) 01/04/2017 281 MOSM/KG Final ??? B TYPE NATRIURETIC PEPTIDE 01/04/2017 92 0 - 100 PG/ML Final ? ? D-DIMER 01/04/2017 0.37 <0.50 MCG/ML FEU Final ??? EXCLUSION STATEMENT 01/04/2017 Final Value:CUT-OFF FOR EXCLUSION OF VENOUS THROMBOEMBOLISM AND PULMONARY EMBOLISM IS LESS THAN 0.5 ug/ml FEU. ??? Protime 01/04/2017 32.7* 11.6 - 14.3 SEC Final ??? INR 01/04/2017 3.1* 0.9 - 1.1 Final Diagnoses/Impression: 1. Coronary artery disease involving [place] coronary artery of [place] heart with angina pectoris ELECTROCARDIOGRAM (NON MIDMARK ACQUIRED) 2. Chest discomfort ELECTROCARDIOGRAM (NON MIDMARK ACQUIRED) BASIC METABOLIC PANEL BNP D-DIMER, QUANTITATIVE 3. Orthopnea BASIC METABOLIC PANEL BNP D-DIMER, QUANTITATIVE 4. S/P AVR PROTHROMBIN TIME, VENOUS 5. LV dysfunction 6. Essential hypertension 7. Permanent atrial fibrillation 8. Encounter for long-term current use of medication BASIC METABOLIC PANEL PROTHROMBIN TIME, VENOUS PINNACLE Documentation Completed: Atrial Fibrillation Coronary Artery Disease Heart Failure Referring Provider: No ref. provider found PCP: MEGAN INFANTE documented in this encounter Plan of Treatment Upcoming Encounters Date Type Department Care Team (Late st Contact Info) Description 09/25/2024 2:00 PM FLAME ANNEALING MACHINE OPERATOR Appointment [facility] [address] [place] [address] Zayra Powell, ASSEMBLER MUSICAL EQUIPMENT [address] [place] [address] 10/16/2024 3:30 PM FLAME ANNEALING MACHINE OPERATOR Office Visit [facility] [address] [place] [phone] Brit Gonzáles MD [address] [place], [place] [phone] documented as of this encounter Procedures Procedure Name Priority Date/Time Associated Diagnosis Comments BNP Routine 01/04/2017 11:03 AM CDT Chest discomfort Orthopnea PROTHROMBIN TIME, VENOUS Routine 017 11:03 AM CDT Encounter for long-term current use of medication S/P AVR BASIC METABOLIC PANEL Routine 01/04/2017 11:03 AM CDT Chest discomfort Orthopnea Encounter for long-term current use of medication D-DIMER, QUANTITATIVE Routine 01/04/2017 11:03 AM CDT Chest discomfort Orthopnea ELECTROCARDIOGRAM (NON MIDMARK ACQUIRED) Routine 01/04/2017 Coronary artery disease involving [place] coronary artery of [place] heart with angina pectoris Chest discomfort documented in this encounter Results * (ABNORMAL) PROTHROMBIN TIME, VENOUS (01/04/2017 11:03 AM CDT) PROTIME 32.7(H) 11.6 - 14.3 SEC 01/04/2017 10:16 AM CDT [facility] INR 3.1(H) 0.9 - 1.1 01/04/2017 10:16 AM CDT [facility] 01/04/2017 11:0 3 AM CDT 01/04/2017 10:04 AM CDT us Sharmila Davis APRN, TECHNICAL PRODUCER-C LABORATORY Final Result Performing Organization Address [facility] Co de Phone Number [facility] [address] [place] [address], [id number] * D-DIMER, QUANTITATIVE (01/04/2017 11:03 AM CDT) [facility] D-DIMER 0.37 <0.50 MCG/ML FEU 01/04/2017 10:18 AM CDT [facility] EXCLUSION STATEMENT CUT-OFF FOR EXCLUSION OF VENOUS THROMBOEMBOLISM AND PULMONARY EMBOLISM IS LESS THAN 0.5 mcg/ml FEU. 01/04/2017 9:50 AM CDT [facility] PLASMA SPECIMEN / Unknown 01/04/2017 11:03 AM CDT 01/04/2017 10:04 AM CDT us Sharmila Davis APRN TECHNICAL PRODUCER-C LABORATORY Final Result Performing Organization Address [facility] Co de Phone Number [facility] [address] [place] [address], [place] [phone] * BNP (01/04/2017 11:03 AM CDT) [facility] B TYPE NATRIURETIC PEPTIDE 92 0 - 100 PG/ML 01/04/2017 10:42 AM CDT [facility] WHOLE BLOOD SPECIMEN / Unknown 01/04/2017 11:03 AM CDT 01/04/2017 10:04 AM CDT us Sharmila Davis APRN TECHNICAL PRODUCER-C LABORATORY Final Result Performing Organization Address [facility] Co de Phone Number [facility] [address] [place] [address], [place] [phone] * (ABNORMAL) BASIC METABOLIC PANEL (01/04/2017 11:03 AM CDT) [facility] SODIUM S/P/B 137 135 - 147 MMOL/L 01/04/2017 10:35 AM CDT [facility] POTASSIUM S/P/B 4.9 3.5 - 5.0 MMOL/L 01/04/2017 10:35 AM CDT [facility] CHLORIDE S/P/B 104 98 - 107 MMOL/L 01/04/2017 10:35 AM CDT [facility] CO2 24.7 22 - 29 MMOL/L 01/04/2017 10:35 AM CDT [facility] GLUCOSE 160(H) 70 - 109 MG/DL 01/04/2017 10:35 AM CDT [facility] BUN 24 8 - 26 MG/DL 01/04/2017 10:35 AM CDT [facility] CREATININE S/P/B 1.20 0.70 - 1.30 MG/DL 01/04/2017 10:35 AM CDT [facility] CALCIUM S/P/B 9.4 8.8 - 10.0 MG/DL 01/04/2017 10:35 AM CDT [facility] EGFR NON-AFR. AMER. 61 >60 ML/MIN/1.7 3 M2 01/04/2017 10:35 AM CDT [facility] EGFR AFR. AMER. 74 >60 ML/MIN/1.7 3 M2 01/04/2017 10:35 AM CDT [facility] ANION GAP 8.3 MMOL/L 01/04/2017 10:35 AM CDT [facility] OSMOLALITY (CALC) 281 MOSM/KG 01/04/2017 10:35 AM CDT [facility] PLASMA SPECIMEN / Unknown 01/04/2017 11:03 AM CDT 01/04/2017 10:04 AM CDT us Sharmila Davis APRN, TECHNICAL PRODUCER-C LABORATORY Final Result [facility] [address] [place] [address], [id number] * ELECTROCARDIOGRAM (01/04/2017) Narrative Luda Clements I, MANUFACTURER AGENT - 01/04/2017 See results in cardio perfect Sharmila Davis APRN, TECHNICAL PRODUCER-C PROCEDURES-ORDERABLE NO CHARGE Final Result documented in this encounter Visit Diagnoses Diagnosis Coronary artery disease involving [place] coronary artery of [place] heart with angina pectoris ([facility])- Primary Chest discomfort Other chest pain Orthopnea S/P AVR Heart valve replaced by other means LV dysfunction Heart disease, unspecified Essential hypertension Unspecified essential hypertension Permanent atrial fibrillation ([facility]) Atrial fibrillation Encounter for long-term current use of medication documented in this encounter Care Teams Entrepreneurial Finance Professor Relationship Specialty Start Date End Date Megan Infante MD [address] [place] [address] PCP - General FAMILY PRACTICE 04/06/16 Piyush Pandey MD [place] Commercial Sheet Metal Foreman CARDIOVASCULAR DISEASE 04/06/16 12/28/23 Sharmila Davis APRN, TECHNICAL PRODUCER-C [address] [facility] [facility] [address] [place] [address] NURSE PRACTITIONER 01/04/17 04/03/24 documented as of this encounter
--- OUTSIDE RECORDS SUMMARY | 2024-09-03 19:15 | XMS_ITS | Encounter Summary ---
Author Organization [facility] Address [address] [place] [address]. [place] [address] [place] [address] Care Team Providers Care Statement Distribution Clerk Name Role Phone Piyush Pandey MD, Amy E MD Primary Care Provider [phone] Reason for Referral * Imaging (Routine) - Completed Specialty Diagnoses / Procedures Referred By Contac t Referred To Contact CARDIOLOGY Diagnoses Permanent atrial fibrillation ([facility]) Procedures Holter Monitor 24 Hr Piyush Pandey MD [facility] [address] [place] [phone] Phone: tel: Referral ID Status Reason Start Date Expiration Date V isits Requested Visits Authorized [id number] Completed 12/31/2016 01/31/2018 1 1 Reason for Visit * Reason Onset Date Comments Atrial Fibrillation 12/31/2016 Encounter Details Date Type Department Care Team (Late st Contact Info) Description 12/31/2016 Telephone [facility] [address] [place] [phone] Piyush Pandey MD Atrial Fibrillation Social History Tobacco Use Types [...] of this encounter Progress Notes * Theresa Oh RN - 12/31/2016 2:51 PM CDT Called pt to ask about reported problems with afib. He reports it seems like it is worse . He could could not describe what worse was other than he feels like his heart races sometimes. He reports increased stress in his life which he thinks is causing this. He has appt on Wednesday with Sharmila. Holter ordered for after that appointment. I instructed the patient to go to the ED if his SOB worsens or he has chest pain. Patient voiced understanding and had no questions. * Lavern Marley - 12/31/2016 12:52 PM CDT Pt called stating he is having issues with sob and afib. Placed pt in clinic with Sharmila on Wednesday,01/04, but this may be an issue for his EP dr. Pt can be reached at [phone]. Message forwarded to Dr. Block's office. documented in this encounter Plan of Treatment Upcoming Encounters Date Type Department Care Team (Late st Contact Info) Description 09/25/2024 2:00 PM POSTMASTER Appointment [facility] [address] [place] [address] Zayra Powell FNP [address] [place] [address] 10/16/2024 3:30 PM POSTMASTER Office Visit [facility] [address] [place] [phone] Brit Gonzáles MD [address] [place] [address] Scheduled Orders Name Type Priority Associated Diagnoses Orde r Schedule Holter Monitor 24 Hr EKG Routine Permanent atrial fibrillation ([facility]) Expected: 01/04/2017, Expires: 12/31/2017 documented as of this encounter Visit Diagnoses Diagnosis Permanent atrial fibrillation (CMS/HCC HHS/HCC)- Primary Atrial fibrillation documented in this encounter Care Teams Statement Distribution Clerk Relationship Specialty Start Date End Date Megan Infante MD [address] [place] [address] PCP - General FAMILY PRACTICE 04/06/16 Piyush Pandey MD [place] Pot[employer] Peeling Machine Operator CARDIOVASCULAR DISEASE 04/06/16 12/28/23 documented as of this encounter
--- OUTSIDE RECORDS SUMMARY | 2024-09-03 19:15 | XMS_ITS | Encounter Summary ---
Author Organization [facility] Address Formerly [facility] [place] [address] [place] [address] Care Team Providers Care Automotive Salesperson Name Role Phone Piyush Pandey MD Unavailable Unavailabl e Megan Infante MD Primary Care Provider [phone] Sharmila Davis APRN RAWHIDE TRIMMER-C Unavailable [phone] Linda Block MD Unavailable [phone] Reason for Visit * Reason Onset Date Comments Lab Results 03/04/2017 1st attempt to r eport BMP from today. Lab Results 03/04/2017 Reached patient and reported labs from 03-04-17 Encounter Details Date Type Department Care Team (Late Contact Info) Description 03/04/2017 Telephone [facility] [employer] AT [facility] [address] [place] [address] Piyush Pandey MD Lab Results (1st attempt to report BMP from today.); Lab Results (Reached patient and reported labs from 03-04-17) Social History Tobacco Use Types Packs/Day Years [...] as of this encounter Progress Notes * Zuleyma Christianson RN - 03/04/2017 4:32 PM CDT Reached patient and reported BMP and Glucose of 483. Patient already has an [facility]. [facility] and will follow up with PCP on the blood sugar./af * Zuleyma Christianson RN - 03/04/2017 4:26 PM CDT Call to patient and left message to return my call. Patient Labs reviewed by and Blood sugar was 483. Patient needs to see PCP to get glucose levels under control. Dr. Pandey would likehim to schedule appt. In [facility] as well./af documented in this encounter Plan of Treatment Upcoming Encounters Date Type Department Care Team (Late st Contact Info) Description 09/25/2024 2:00 PM REEL STRIPPER Appointment [facility] [address] [place] [address] Zayra Powell, PERSONAL CARE ATTENDANT [address] [place] [address] 10/16/2024 3:30 PM REEL STRIPPER Office Visit [facility] [address] [place] [phone] Brit Gonzáles MD [address] [place] [address] documented as of this encounter Visit Diagnoses Not on filedocumented in this encounter Care Teams Automotive Salesperson Relationship Specialty Start Date End Date Megan Infante MD [address] [place] [phone] PCP - General FAMILY PRACTICE 04/06/16 Piyush Pandey MD [place] [employer] CARDIOVASCULAR DISEASE 04/06/16 12/28/23 Sharmila Davis APRN, RAWHIDE TRIMMER-C [address] [facility] [address] [place] [phone] NURSE PRACTITIONER 01/04/17 04/03/24 Linda Block MD [address] [facility] [address] [place] [phone] [place] [employer] CLINICAL CARDIAC ELECTROPHYSIOLOGY 02/08/17 04/12/23 documented as of this encounter
--- OUTSIDE RECORDS SUMMARY | 2024-09-03 19:15 | XMS_ITS | Encounter Summary ---
Author Organization [facility] Address [address] [place] [address]. [place] [address] [place] [address] Care Team Providers Care License Issuer Name Role Phone Piyush Pandey MD Unavailable UnavailMegan Rodriguez MD Primary Care Provider [phone] Sharmila Davis APRN, SENSOR SPECIALIST-C Unavailable Reason for Visit * Reason Onset Date Comments Information 01/08/2017 cancelled holter appt Encounter Details Date Type Department Care Team (Late st Contact Info) Description 01/08/2017 Telephone [employer] [facility] [employer] AT [facility] [address] [place] [address] Linda Block MD [address] [facility] [address] [place] [address] Information (cancelled holter appt) Social History Tobacco Use Types Packs/Day [...] Progress Notes * Theresa Oh RN - 01/11/2017 8:01 AM CDT Ok, thank you! * STERLING Guillen - 01/10/2017 10:36 PM CDT Yes, I sent a message to Dr. Block's inbox stating that after seeing him, I didn't think this wasa rhythm problem. * Theresa Oh RN - 01/08/2017 3:37 PM CDT Unable to leave message for pt. Appears holter apt I scheduled for 01/04 was cancelled checking to see if he cancelled. documented in this encounter Plan of Treatment Upcoming Encounters Date Type Department Care Team (Late st Contact Info) Description 09/25/2024 2:00 PM INPATIENT SERVICES DIRECTOR Appointment [facility] [address] [place] [address] Zayra Powell, [facility] [address] [place] [address] 10/16/2024 3:30 PM INPATIENT SERVICES DIRECTOR Office Visit [facility] [address] [place] [address] Brit Gonzáles MD [address] [place] [address] documented as of this encounter Visit Diagnoses Not on filedocumented in this encounter Care Teams License Issuer Relationship Specialty Start Date End Date Megan Infante MD [address] [place] [phone] PCP - General FAMILY PRACTICE 04/06/16 Piyush Pandey MD [place] [employer] CARDIOVASCULAR DISEASE 04/06/16 12/28/23 hSarmila Davis, DANNY, SENSOR SPECIALIST-C [address] [phone] NURSE PRACTITIONER 01/04/17 04/03/24 documented as of this encounter
--- OUTSIDE RECORDS SUMMARY | 2024-09-03 19:15 | XMS_ITS | Encounter Summary ---
Author Organization [facility] Address [address] [place] [address]. [place] [address] [place] [address] Care Team Providers Care Manager Compliance Name Role Phone Piyush Pandey MD, Amy E MD Primary Care Provider [phone] Reason for Visit * Reason Comments Follow Up Coronary Artery Disease Encounter Details Date Type Department Care Team (Latest Contact Info) Description 09/30/2016 12:00 PM WATER PROOFER Office Visit [facility] AT [address] [place] [phone] Piyush Pandey MD Follow Up; Coronary Artery Disease Social History Tobacco Use Types Packs/Day Years [...] Sign Reading Time Taken Comments Blood Pressure 147/75 10/02/2016 3:22 PM WATER PROOFER Pulse 62 10/02/2016 3:22 PM WATER PROOFER Temperature - - Respiratory Rate 20 10/02/2016 3:22 PM WATER PROOFER Oxygen Saturation 97% 10/02/2016 3:22 PM WATER PROOFER Inhaled Oxygen Concentration - - Weight 89.4 kg (197 lb) 10/02/2016 3:22 PM WATER PROOFER Height 167.6 cm (5' 6 ) 10/02/2016 3:22 PM WATER PROOFER Body Mass Index 31.8 10/02/2016 3:22 PM WATER PROOFER documented in this encounter Patient Instructions * Patient Instructions* Hayley Gee, YUNI - 10/02/2016 3:33 PM WATER PROOFER Images from the original note were not included. 1. Add colchicine 0.6 mg BID 2. Xray of finger 3. RTC in 6 months 4. Lipids with PCP Index Kyrgyz All??languages Related??topics Coronary Artery Disease DESOUZA POINTS ?? Coronary artery disease happens when plaque buildups inside the blood vessels that bring blood and oxygen to your heart muscle. Plaque increases the chance that blood clots may form and block a blood vessel, and this can cause a heart attack. ?? Your treatment may include a combination of diet changes, exercise, medicines, and surgery. ?? Follow your healthcare provider???s advice about exercising, eating a healthy diet, watching your weight, not smoking, and checking your blood pressure. What is coronary artery disease? Coronary artery disease (CAD) is a type of heart disease caused by a problem with the blood vesselsthat bring blood and oxygen to the heart muscle. These arteries are called the coronary arteries. This disease increases your risk for heart attack and sudden . What is the cause? Fatty deposits called plaque may build up in blood vessels and make them narrower. The narrowing decreases the amount of blood flow to the heart. Plaque also increases the chance that blood clots mayform and block a blood vessel, which can cause a heart attack or stroke. Your risk for CAD may be higher if you: ?? Have a family history of coronary artery disease at an early age ?? Smoke ?? Have high blood pressure ?? Have diabetes ?? Are very overweight ?? Don???t get enough exercise ?? Have high levels of blood fat such as high cholesterol level What are the symptoms? Coronary artery disease may not cause any symptoms. When there are symptoms, the most common one ischest pain, called angina. You may feel: ?? A feeling of tightness or heaviness in the chest ?? Squeezing, pressure, or burning in the chest Angina symptoms usually: ?? Last for 5 minutes or less and go away with rest or medicine such as nitroglycerin. ?? Happen when the heart has to work harder, such as after a heavy meal or during physical activityor emotional stress. Angina may also happen when you are resting. Call 911 for emergency help right away if you have symptoms of a heart attack. The most common symptoms include: ?? Chest pain or pressure, squeezing, or fullness in the center of your chest that lasts more than a few minutes, or goes away and comes back (may feel like indigestion or heartburn) ?? Pain or discomfort in one or both arms or shoulders, or in your back, neck, jaw, or stomach ?? Trouble breathing ?? Breaking out in a cold sweat for no known reason ?? If your provider has prescribed nitroglycerin for angina, pain that does not go away after taking your nitroglycerin as directed Along with these symptoms, you may also feel very tired, faint, or sick to your stomach. How is it diagnosed? Your healthcare provider will ask about your symptoms and medical history and examine you. Tests may include: ?? Blood tests ?? An ECG (also called an EKG or electrocardiogram), which measures and records your heartbeat ?? An exercise treadmill test to see how your heart works when you exercise ?? An echocardiogram, which uses sound waves (ultrasound) to see how well your heart is pumping ?? Angiogram, which is a series of X-rays taken after your healthcare provider injects a special dye into your blood vessels to show the knox of the arteries and any blockage ?? CT scan, which uses X-rays and a computer to show detailed pictures of the arteries How is it treated? Your treatment depends on many factors, such as your age, heart muscle function, and other health problems. At first, treatment may include diet changes and an exercise program. Your healthcare provider may prescribe medicine. ?? Many people need to take 2 or more medicines to help prevent a heart attack or stroke. It may take several weeks or months to find the best treatment for you. ?? Your provider may also prescribe other types of medicine to lower blood pressure, help stop chest pain, control an irregular heartbeat, help prevent blood clots, or lower blood fat (cholesterol). If your coronary arteries are badly blocked, you may need balloon angioplasty and a coronary stent,or bypass surgery. ?? A balloon angioplasty opens blocked blood vessels and improves blood flow. A metal mesh device called a stent is usually left in the blood vessels to help keep them open. ?? Bypass surgery uses blood vessels from other parts of the body, or manmade material, to make a new path around a blocked area. How can I take care of myself? If you have coronary artery disease, there are things you can do to take care of yourself now and prevent problems in the future. ?? Follow your provider's advice about activity, exercise, medicine, and follow- up visits. ?? Lower the amount of salt, saturated and trans fats, and cholesterol in your diet. ?? Work with your healthcare provider to control diabetes, blood pressure, or other health problemsyou may have. ?? Try to keep a healthy weight. If you are overweight, talk to your provider about ways to lose weight. ?? If you smoke, try to quit. Talk to your healthcare provider about ways to quit smoking. ?? Ask your healthcare provider: ?? How and when you will get your test results ?? How long it will take to recover ?? If there are activities you should avoid and when you can return to your normal activities ?? How to take care of yourself at home ?? What symptoms or problems you should watch for and what to do if you have them ?? Make sure you know when you should come back for a checkup. Keep all appointments for provider visits or tests. ?? Taking a low-dose aspirin every day may help prevent a heart attack or stroke. Not everyone should take aspirin. Ask your healthcare provider if you should take aspirin and if so, how much to take. How can I help prevent coronary artery disease? You can prevent this disease with a heart-healthy lifestyle: ?? Eat a healthy diet and keep a healthy weight. ?? Stay fit with the right kind of exercise for you. ?? Find ways to manage stress. ?? Don???t smoke. ?? Limit your use of alcohol. Talk to your healthcare provider about your personal and family medical history and your lifestyle habits. This will help you know what you can do to lower your risk for coronary artery disease. If you have a strong family history of CAD, a healthy lifestyle may slow the start of the disease and maybe even keep you from getting it. However, you must have regular checkups to keep a close watch on the health of your heart. Developed by [employer]. Adult Advisor 2015.3 published by [employer]. Last modified: 2016-01-22 Last reviewed: 2016-01-21 This content is reviewed periodically and is subject to change as new health information becomes available. The information is intended to inform and educate and is not a replacement for medical evaluation, advice, diagnosis or treatment by a healthcare professional. References Adult Advisor 2015.3 Index Copyright ?? 2016 [employer], a division of [employer]. All rights reserved. R PROOFER R PROOFER R PROOFER documented in this encounter Progress Notes * Piyush Pandey MD - 10/17/2016 5:59 PM CST HISTORY OF PRESENT ILLNESS: Mr. Lay is seen in the [facility] today for a scheduled followup visit. He reports that his shortness of breath has improved since last being seen. Mr. Lay denies any anginal chest pain or overt symptoms of congestive heart failure, such as paroxysmal nocturnal dyspnea, orthopnea, or pedal edema. He does wear CPAP mask at night. He has had nopalpitations or claudication. He is able walk approximately 1 block without limitations. As noted above, his shortness of breath has improved since last being seen. Mr. Lay does report that he has lost approximately 24 pounds since March of 2016. He has been under an increased amount of stress due to his 's advancing Alzheimer disease at age 57. He is tolerating his present medications well. He denies any bleeding complications related to his Warfarin anticoagulation. An EKG performed on 09/15/16 confirmed the presence atrial fibrillation at a measured rate of 52 beats per minute. An incomplete left bundle branch block pattern was present. A sleep study performed in June of last year did identify moderately severe obstructive sleep apnea and documented improvement with CPAP therapy. RECOMMENDATIONS AND PLAN: Mr. Lay's cardiac status appears clinically stable at the present timewithout ongoing anginal chest pain, overt symptoms of congestive heart failure, or clinical evidence of hemodynamically significant arrhythmias. He seems to be tolerating his present medications well, including the Warfarin anticoagulation. He does have some swelling of his right middle finger on examination today, which looks suspicious for gout, as he denies any recent trauma. Continued medicaltherapy and cardiac risk factor modification seem most appropriate at the present time. After a long discussion in the clinic, I have recommended the following to Mr. Lay: 1. Continue present medical regimen without alteration. 2. Initiate Colchicine 0.6 mg p.o. b.i.d. 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 I have also recommended to Mr. Lay that he undergo an x-ray of his finger to rule out a fracture, but he has refused. 3. Lipid management per Mr. Lay's primary care physician, Megan Infante. 4. Return to the cardiology clinic for routine followup in 6 months. I have encouraged Mr. Lay to contact me in the meantime should he have any questions or problems. R PROOFER * Piyush Pandey MD - 09/30/2016 12:00 PM CST Reason for Visit: Follow Up and Coronary Artery Disease Medications: Current Outpatient Prescriptions: ??? colchicine 0.6 MG tablet, Take 1 tablet (0.6 mg total) by mouth daily., Disp: 90 tablet, Rfl: 3 ??? acetaminophen (TYLENOL) 500 MG tablet, Take 1 tablet by mouth every 4 (four) hours as needed., Disp: , Rfl: ??? albuterol sulfate HFA (PROAIR HFA) 108 (90 BASE) MCG/ACT inhaler, ProAir HFA (albuterol sulfate) HFA aerosol inhaler 90 mcg/actuation; 2 puffs as needed for coughing or wheezing; 0; -Oct-2015; Active, Disp: , Rfl: ??? amlodipine 5 MG tablet, Take 5 mg by mouth daily., Disp: , Rfl: ??? aspirin (ASPIRIN CHILDRENS) 81 MG chewable tablet, Chew 1 tablet by mouth daily., Disp: , Rfl: ??? atorvastatin 20 MG tablet, Take 20 mg by mouth daily., Disp: , Rfl: ??? carvedilol 25 MG tablet, Take 1 tablet (25 mg total) by mouth 2 (two) times daily with meals., Disp: 60 tablet, Rfl: 3 ??? hydrocodone-acetaminophen 5-500 MG per capsule, hydrocodone-acetaminophen capsule 5-500 mg; take 1-2 tablet by mouth at bedtime as needed; 0; -Mar-2014; Active, Disp: , Rfl: ??? lisinopril 20 MG [...] children: N/A ??? Years of education: N/A Social History Main Topics ??? Smoking status: Former Smoker ??? Smokeless tobacco: Former User Types: Chew ??? Alcohol use No ??? Drug use: No ??? Sexual activity: Not on file Other Topics Concern ??? Exercise No ??? Special Diet No ??? Caffeine Concern No Social History Narrative Family History Problem Relation Age of Onset ??? Heart Disease Neg Hx Family Status Relation Status ??? Neg Hx Review of Systems Constitutional: Positive for malaise/fatigue. Negative for weight loss. HENT: Negative for hearing loss. Eyes: Negative for blurred vision and double vision. Respiratory: Negative for cough, hemoptysis and wheezing. Cardiovascular: Positive for palpitations. Negative for chest pain. Gastrointestinal: Negative for blood in stool and melena. Genitourinary: Negative for dysuria. Musculoskeletal: Negative for joint pain and myalgias. Skin: Negative for rash. Neurological: Negative for tingling, sensory change, focal weakness and headaches. Endo/Heme/Allergies: Negative for polydipsia. Does not bruise/bleed easily. Filed Vitals: 10/02/16 1522 BP: 147/75 Pulse: 62 Resp: 20 SpO2: 97% Weight: 89.4 kg (197 lb) Height: 5' 6 (1.676 m) Physical Exam Constitutional: He is oriented to person, place, and time. He appears well- developed and well-nourished. No distress. HENT: Mouth/Throat: Mucous membranes are not pale and not cyanotic. Eyes: There is no xanthelasma. Neck: Neck supple. Normal carotid pulses and no JVD present. Carotid bruit is not present. Cardiovascular: Normal rate, regular rhythm, S1 normal and S2 normal. Exam reveals no S3 and no S4. No murmur [...] no tenderness. Musculoskeletal: He exhibits no edema. No severe kyphoscoliosis. Right middle finger swollen Neurological: He is oriented to person, place, and time. Neuro exam grossly normal. Skin: Skin is warm, dry and intact. No cyanosis. Nails show no clubbing. Without evidence of xanthoma. Psychiatric: He has a normal mood and affect. No results found for this visit on 09/30/16. Diagnoses/Impression: No diagnosis found. PINNACLE Documentation Completed: Coronary Artery Disease Referring Provider: No ref. provider found PCP: MEGAN INFANTE R PROOFER documented in this encounter Plan of Treatment Upcoming Encounters Date Type Department Care Team (Late st Contact Info) Description 09/25/2024 2:00 PM WATER PROOFER Appointment [facility] [address] [place] [address] Zayra Powell, PADDING GLUER [address] [place] [address] 10/16/2024 3:30 PM WATER PROOFER Office Visit [facility] [address] [place] [phone] Brit Gonzáles MD [address] [place] [address] documented as of this encounter Visit Diagnoses Diagnosis S/P aortic valve replacement with bioprosthetic valve- Primary Heart valve replaced by other means LV dysfunction Heart disease, unspecified Permanent atrial fibrillation (CMS/HCC HHS/HCC) Atrial fibrillation Coronary artery disease involving mary's igloo coronary artery of mary's igloo heart without angina pectoris Carotid disease, bilateral (CMS/HCC) Unspecified disorders of arteries and arterioles Essential hypertension Unspecified essential hypertension Mixed hyperlipidemia Chronic obstructive pulmonary disease, unspecified COPD type (CMS/HCC HHS/HCC) documented in this encounter Care Teams Manager Compliance Relationship Specialty Start Date End Date Megan Infante MD [address] [place] [phone] PCP - General FAMILY PRACTICE 04/06/16 Piyush Pandey MD [employer] Supervisor CARDIOVASCULAR DISEASE 04/06/16 12/28/23 documented as of this encounter
--- OUTSIDE RECORDS SUMMARY | 2024-09-03 19:15 | XMS_ITS | Encounter Summary ---
Author Organization [facility] Address [address] [place] [address]. [place], [place] [address] [place] [address] Care Team Providers Care Coiled Tubing Operator Name Role Phone Piyush Pandey MD [facility] Megan Leos MD Primary Care Provider Encounter Details Date Type Department Care Team (Late st Contact Info) Description 05/29/2016 COMMUNITY PROGRAM ASSISTANT ONLY [facility] [address] [place] [address] Piyush Pandey MD Social History Tobacco Use [...] on file documented as of this encounter Consult Notes * Piyush Pandey MD - 05/29/2016 6:29 AM CDT NAME: [facility]E [facility] ROOM: [address] [place] [address] : 1955 CONSULTATION REPORT ADMITTED: 05/13/16 1633 Adm: ANURAG GAYTAN MD DISCHARGED: 05/17/16 1400 Date/Time Dictated: 05/29/16 0629 Transcribed Date/Time: 05/29/16 1353 cc: Zora Cornell [place], III, M.D. Chart Document TYPE OF CONSULTATION Cardiology Consultation HISTORY OF PRESENT ILLNESS Mr. Sims is a 60-year-old gentleman with a complex cardiovascular history, who was initially transferred from the [facility] for further evaluation and treatment of hypoxemic respiratory failure associated with worsening shortness of breath. I have been asked to see Mr. Sims in cardiology consultation. He is well known to me from previous evaluation and treatment. Mr. Sims certainly has a complex past cardiovascular history which includes coronary artery disease, previous tissue aortic valve replacement, and atrial fibrillation as well as congestive heart failure. He has had ongoing difficulties with shortness of breath, which have seemed to be related in the past to his atrial fibrillation and a degree of prosthetic valve/patient mismatch all exacerbated by an element of COPD. He was doing reasonably well, but then began having difficulties with progressive shortness of breath, beginning on the day prior to admission when he decided to go for further evaluation. He denies any associated chest pain, but has had some difficulties with orthopnea, increasing dyspnea on exertion, and worsening pedal edema. He denies any fevers, chills, or significant sputum production. There was concern initially that he may require intubation and mechanical ventilation. Mr. Sims's initial evaluation has included an EKG, which confirmed the presence of atrial fibrillation with a controlled ventricular response and a significant intraventricular conduction delay associated with poor R-wave progression. An echocardiogram showed the bioprosthetic aortic valve to have a peak gradient of 46 mmHg (mean gradient 24 mmHg). There was moderate concentric left ventricular hypertrophy with an estimated LVEF of 45% associated with biatrial enlargement, mild mitral regurgitation, and mild tricuspid regurgitation with a peak pulmonary artery systolic pressure estimated at [address] scan of the chest showed no evidence of pulmonary embolism. There was moderate bilateral pleural effusions and cardiomegaly noted with a 4.2 cm adrenal mass present. PAST MEDICAL HISTORY Please see chart. As noted above, the patient has a history of prior tissue aortic valve replacement, atrial fibrillation, coronary artery disease, and congestive heart failure. Attempts have been made to convert his atrial fibrillation as he seemed to improve clinically with sinus rhythm, but this has been difficult to maintain. The patient also has a history of COPD which has contributed too much of his symptomatology. He also has a history of hypertension, hyperlipidemia, and diabetes mellitus, type 2. He has a history of polyps which have been removed from his colon. Other noncardiac surgeries have included bilateral knee replacement and left hip replacement as well as carpal tunnel release. He has a history of erectile dysfunction and carries a diagnosis of bipolar disorder, manifested as both anxiety and depression. ALLERGIES He has no known drug allergies. MEDICATIONS Please see medication reconciliation sheet. REVIEW OF SYSTEMS A complete 12-system review of systems was performed and was felt to be negative with the exception of that listed above. PHYSICAL EXAMINATION VITAL SIGNS: As recorded. GENERAL: Well-developed, well-nourished, no distress. EYES: There are no xanthelasma. ENT: Oral mucosa is without pallor or cyanosis. NECK: Supple, without jugular venous distention. Carotids are 2+ bilaterally, without bruits. RESPIRATORY: Decreased breath sounds are noted through the lungs bilaterally. Decreased breath sounds are noted in the bases. There is no wheezing or rhonchi heard at the present time. CARDIOVASCULAR: A grade 1/6 systolic ejection murmur is auscultated. No diastolic murmur is heard. No pericardial rub is identified. The patient's rhythm is irregular. ABDOMEN: Benign, without hepatosplenomegaly, mass or tenderness. The abdominal aorta is not palpably enlarged. No abdominal bruit. EXTREMITIES: No clubbing, cyanosis, or edema. The femoral and pedal pulses are 2+ bilaterally. MUSCULOSKELETAL: No severe kyphoscoliosis. SKIN: Without evidence of xanthoma. NEUROLOGIC: Alert and oriented x 3. Affect appropriate. Neurologic examination grossly normal. LABORATORY DATA Please see chart. IMPRESSION 1.Hypoxemic respiratory failure - secondary to congestive heart failure related to an element of patient/prosthetic valve mismatch, left ventricular systolic and diastolic dysfunction, and atrial fibrillation. Rule out associated pulmonary infection. 2.Status post aortic valve replacement (tissue). 3.Atrial fibrillation - unsuccessful attempts at cardioversion. Amiodarone antiarrhythmic therapy was discontinued earlier this year. 4.Coronary artery disease - stable. 5.COPD. 6.Diabetes mellitus - type 2. 7.Bipolar disorder. RECOMMENDATIONS 1.Continue intravenous Lasix diuresis as the patient has responded quite well to this. 2.Aspirin, beta blockade, and statin therapy. 3.Discontinue amiodarone antiarrhythmic therapy and continue long-term heart rate control/warfarin anticoagulation strategy for the atrial fibrillation. 4.Treatment of the possible pulmonary infection will be per the primary service. Thank you for the opportunity to once again participate in Mr. Sims's care. I have discussed his case with his ed tech, Dr. Linda Block, in detail. We will follow with you. Electronically Signed By: Piyush Pandey III, M.D. 06/02/2016 11:10 A Piyush Pandey III, M.D. documented in this encounter Plan of Treatment Upcoming Encounters Date Type Department Care Team (Late st Contact Info) Description 09/25/2024 2:00 PM SAGGER SOAK Appointment [facility] [address] [place] [address] Zayra Powell RN REGISTRY [address] [place] [address] 10/16/2024 3:30 PM SAGGER SOAK Office Visit [facility] [address] [place] [address] Brit Gonzáles MD [address] [place] [address] documented as of this encounter Visit Diagnoses Not on filedocumented in this encounter Care Teams Coiled Tubing Operator Relationship Specialty Start Date End Date Megan Infante MD [address] [place] [address] PCP - General FAMILY PRACTICE 04/06/16 Piyush Pandey MD [place] Gasket Supervisor CARDIOVASCULAR DISEASE 04/06/16 12/28/23 documented as of this encounter
--- OUTSIDE RECORDS SUMMARY | 2024-09-03 19:15 | XMS_ITS | Encounter Summary ---
Author Organization [facility] Address [address] [place] [address]. [place] [address] [place] [address] Care Team Providers Care Lens Generating Machine Tender Name Role Phone Piyush Pandey MD Unavailable Unavailabl Megan Leos MD Primary Care Provider [phone] Sharmila Davis APRN ELECTRICAL LOGGING OPERATOR-C Unavailable Linda Block MD Unavailable [phone] Encounter Details Date Type Department Care Team (Late st Contact Info) Description 06/10/[address] [facility] [address] [place] [address] Megan Infante MD [address] [place] [address] Social History Tobacco Use Types Packs/Day [...] (Late Contact Info) Description 09/25/2024 2:00 PM OBIEE CONSULTANT Appointment [facility] [address] [place] [address] Zayra Powell, JOURNEYMAN LEVEL ACOUSTIC ANALYST [address] [place] [address] 10/16/2024 3:30 PM OBIEE CONSULTANT [facility] [address] [place] [address] Brit Gonzáles MD [address] [place] [address] documented as of this encounter Visit Diagnoses Diagnosis Obstructive sleep apnea Obstructive sleep apnea (adult) (pediatric) documented in this encounter Care Teams Lens Generating Machine Tender Relationship Specialty Start Date End Date Megan Infante MD [address] [place] [address] PCP - General FAMILY PRACTICE 04/06/16 Piyush Pandey MD [place] Hotel Service Manager CARDIOVASCULAR DISEASE 04/06/16 12/28/23 Sharmila Davis, FARMWORKER [employer]ODUC[employer], ELECTRICAL LOGGING OPERATOR-C [address] [facility][1] [address] [place] [address] NURSE PRACTITIONER 01/04/17 04/03/24 Linda Block MD [address] [facility] [address] [place] [address] [employer] Hotel Service Manager CLINICAL CARDIAC ELECTROPHYSIOLOGY 02/08/17 04/12/23 documented as of this encounter
--- OUTSIDE RECORDS SUMMARY | 2024-09-03 19:15 | XMS_ITS | Encounter Summary ---
Author Organization [facility] Address [address] [place] [address]. [place] [address] [place] [address] Care Team Providers Care General Pediatrician Name Role Phone Piyush Pandey MD Unavailable Unavailabl Megan Leos MD Primary Care Provider [phone] Sharmila Davis APRN INSURANCE ASSISTANT-C Unavailable [phone] Linda Block MD Unavailable [phone] Reason for Visit * Reason Onset Date Comments Echo 02/15/2017 Encounter Details Date Type Department Care Team (Late st Contact Info) Description 02/15/2017 Telephone [employer] [facility] [address] [place] [address] Piyush Pandey MD Echo Social History Tobacco Use Types Packs/Day Years [...] encounter Progress Notes * Lavern Marley - 02/15/2017 1:59 PM CDT LM for pt re: scheduled for an echocardiogram on 02/17/17 in [place] @ 4:00. documented in this encounter Plan of Treatment Upcoming Encounters Date Type Department Care Team (Late st Contact Info) Description 09/25/2024 2:00 PM ROVING FRAME TENDER Appointment [facility] [address] [place] [address] Zayra Powell, EARLY CHILDHOOD SPECIAL EDUCATOR [address] [place] [address] 10/16/2024 3:30 PM ROVING FRAME TENDER Office Visit [facility] [address] [place] [address] Brit Gonzáles MD [address] [place], [place] [address] documented as of this encounter Visit Diagnoses Not on filedocumented in this encounter Care Teams General Pediatrician Relationship Specialty Start Date End Date Megan Infante MD [address] [place] [address] PCP - General FAMILY PRACTICE 04/06/16 Piyush Pandey MD [place] Chicken Stuffer CARDIOVASCULAR DISEASE 04/06/16 12/28/23 Sharmila Davis, DANNY, INSURANCE ASSISTANT-C [address] [facility] [address] [place] [address] NURSE PRACTITIONER 01/04/17 04/03/24 Linda Block MD [address] [facility] [address] [place] [address] [place] Chicken Stuffer CLINICAL CARDIAC ELECTROPHYSIOLOGY 02/08/17 04/12/23 documented as of this encounter
--- OUTSIDE RECORDS SUMMARY | 2024-09-03 19:15 | XMS_ITS | Encounter Summary ---
Author Organization [facility] Address [address] [place] [address]. [place] [address] [place] [address] Care Team Providers Care Residential Driver Name Role Phone Piyush Pandey MD Unavailable [facility] Megan Leos MD Primary Care Provider [phone] Sharmila Davis APRN, PRODUCT MARKETING COORDINATOR-C Unavailable Linda Block MD Unavailable [phone] Encounter Details Date Type Department Care Team (Late st Contact Info) Description 11/30/2017 Abstract [facility] [address] [place] [address] [place] [address] [place] [phone] Social History Tobacco Use Types Packs/Day Years [...] (Late Contact Info) Description 09/25/2024 2:00 [address] App[address] [facility] [address] [place] [address] Zayra Powell, SURGERY AID [address] [place] [address] 10/16/2024 3:30 PM BEAUTY ARTIST Office Visit [facility] [place] [address] Brit Gonzáles MD [address] [place] [address] documented as of this encounter Procedures Procedure Name Priority Date/Time Associated Diagnosis Comments URINALYSIS Routine 11/30/2017 1:30 PM CDT URINE BACTERIA CULTURE Routine 11/30/2017 1:30 PM CDT documented in this encounter Results * CULTURE URINE (11/30/2017 1:30 PM CDT) SPEC DESCRIPTION URINE CLEAN CATCH 11/30/2017 1:37 PM CDT [facility] SPECIAL REQUESTS NO SPECIAL REQUEST 11/30/2017 1:37 PM CDT [facility] CULTURE RESULT FEW CONTAMINANTS 11/21 4:[address] [facility] URINE SPECIMEN OBTAINED BY CLEAN CATCH PROCEDURE / Unknown 11/30/2017 1:30 PM CDT 11/30/2017 1:43 PM CDT us Generic Conversion Md LANDRY MICROBIOLOGY - GENERAL ORDERABLES Final Result [facility] [address] [place] [address], [place] [phone] [id number] [facility] [address] [place] [address], * (ABNORMAL) URINALYSIS (11/30/2017 1:30 PM CDT) COLOR (U) STRAW 11/30/2017 1:55 PM CDT [facility] TRANSPARENCY CLEAR 11/30/2017 1:55 PM CDT [facility] SPECIFIC GRAVITY (U) 1.005 1.000 - 1.025 11/30/2017 1:55 PM CDT [facility] Comment:LESS THAN OR EQUAL T O U PH 5.5 5.0 - 8.0 11/30/2017 1:55 PM CDT [facility] LEUKOCYTES (U) NEGATIVE NEGATIVE 11/30/2017 1:55 PM CDT [facility] NITRITES NEGATIVE NEGATIVE 11/30/2017 1:55 PM CDT [facility] PROTEIN (U) NEGATIVE NEGATIVE 11/30/2017 1:55 PM CDT [facility] URINE GLUCOSE TRACE(A) NEGATIVE 11/30/2017 1:55 PM CDT [facility] KETONES MG/DL (U) NEGATIVE NEGATIVE 11/30/2017 1:55 PM CDT [facility] UROBILINOGEN 0.2 <1.0 EU/DL 11/30/2017 1:55 PM CDT [facility] BILIRUBIN (U) NEGATIVE NEGATIVE 11/30/2017 1:55 PM CDT [facility] BLOOD (U) NEGATIVE NEGATIVE 11/30/2017 1:55 PM CDT [facility] WBC/HPF 0-5 0 - 5 /HPF 11/30/2017 1:55 PM CDT [facility] EPI/HPF OCCASIONAL /LPF 11/30/2017 1:55 PM CDT [facility] 11/30/2017 1:30 PM CDT 11/30/2017 1:43 PM CDT us Generic Conversion Md LANDRY URINE ORDERABLES Final Result [facility] [address] [email or web address], [place] [address] [phone] documented in this encounter Visit Diagnoses Diagnosis Nodular prostate without lower urinary tract symptoms Nodular prostate without urinary obstruction documented in this encounter Care Teams Residential Driver Relationship Specialty Start Date End Date Megan Infante MD [address] [facility] [place] [address] PCP - General FAMILY PRACTICE 04/06/16 Piyush Pandey MD [place] Story Analyst CARDIOVASCULAR DISEASE 04/06/16 12/28/23 Sharmila Davis, DANNY, PRODUCT MARKETING COORDINATOR-C [address] [facility] [address] [place] [address] NURSE PRACTITIONER 01/04/17 04/03/24 Linda Block MD [address] [facility] [address] [place] [address] [place] Story Analyst CLINICAL CARDIAC ELECTROPHYSIOLOGY 02/08/17 04/12/23 documented as of this encounter
--- OUTSIDE RECORDS SUMMARY | 2024-09-03 19:15 | XMS_ITS | Encounter Summary ---
Author Organization [facility] Address [facility] [place] [address] [place] [address] Care Team Providers Care Assistant Women'S Soccer Coach Name Role Phone Piyush Pandey MD Unavailable UnavailMegan Rodriguez MD Primary Care Provider [phone] Sharmila Davis APRN, DIGITAL COMMENTATOR-C Unavailable Encounter Details Date Type Department Care Team (Late Contact Info) Description 01/27/2017 Orders Only [facility] [address] [place] [address] Hayley Gee RN Social History Tobacco Use Types Packs/Day [...] (Late Contact Info) Description 09/25/2024 2:00 PM MILL ATTENDANT Appointment [facility] [address] [place] [address] Zayra Powell, LAND SURVEYING SURVEY WORKER [address] [place] [address] 10/16/2024 3:30 PM MILL ATTENDANT Office Visit [facility] [address] [place] [address] Brit Gonzáles MD [address] [place] [address] documented as of this encounter Visit Diagnoses Not on filedocumented in this encounter Care Teams Assistant Women'S Soccer Coach Relationship Specialty Start Date End Date Megan Infante MD [address] [place] [address] PCP - General FAMILY PRACTICE 04/06/16 Piyush Pandey MD [place] Research Chef CARDIOVASCULAR DISEASE 04/06/16 12/28/23 Sharmila Davis APRN, DIGITAL COMMENTATOR-C [address] [facility] [address] [place] [address] NURSE PRACTITIONER 01/04/17 04/03/24 documented as of this encounter
--- OUTSIDE RECORDS SUMMARY | 2024-09-03 19:15 | XMS_ITS | Encounter Summary ---
Author Organization [facility] Address [facility] [place] [address] [place] [address] Care Team Providers Care Student Success Counselor Name Role Phone Piyush Pandey MD Unavailable Unavailabl e Megan Infante MD Primary Care Provider [phone] Sharmila Davis APRN FLIGHT OPERATIONS DISPATCH CLERK-C Unavailable Linda Block MD Unavailable [phone] Jeff Grace MD Unavailable Reason for Visit * Reason Onset Date Comments Results 03/10/2019 Encounter Details Date Type Department Care Team (Late st Contact Info) Description 03/10/2019 Telephone [facility] [address] [place] [address] Jeff Grace MD [address] [place] [address] Results Social History Tobacco Use Types Packs/Day [...] as of this encounter Progress Notes * Andie Ojeda LPN - 03/10/2019 2:[address] Grace had reviewed recent carotid and BLE arterial duplex that revealed acceptable . This engineering writer s/w pt to inform of he above and will f/u as directed documented in this encounter Plan of Treatment Upcoming Encounters Date Type Department Care Team (Late st Contact Info) Description 09/25/2024 2:00 PM TEXTILE SCREEN MAKER Appointment [facility] [address] [facility] [place] [address] Zayra Powell, MAINTENANCE SCHEDULER [address] [facility] [place] [address] 10/16/2024 3:30 PM TEXTILE SCREEN MAKER Office Visit [facility] [address] [facility] [place] [address] Brit Gonzáles MD [address] [place], [place] [phone] documented as of this encounter Visit Diagnoses Not on filedocumented in this encounter Care Teams Student Success Counselor Relationship Specialty Start Date End Date Megan Infante MD [address] [facility] [place] [address] PCP - General FAMILY PRACTICE 04/06/16 Piyush Pandey MD [place] Drip Pumper CARDIOVASCULAR DISEASE 04/06/16 12/28/23 Sharmila Davis APRN, FLIGHT OPERATIONS DISPATCH CLERK-C [address] [facility] [address] [place] [address] NURSE PRACTITIONER 01/04/17 04/03/24 Linda Block MD [address] [facility] [address] [place] [address] [place] Drip Pumper CLINICAL CARDIAC ELECTROPHYSIOLOGY 02/08/17 04/12/23 Jeff Grace MD [address] [place] [address] Consulting Physician INTERNAL MEDICINE 02/20/19 3 documented as of this encounter
--- OUTSIDE RECORDS SUMMARY | 2024-09-03 19:15 | XMS_ITS | Encounter Summary ---
Author Organization [facility] Address [facility] [place] [address] [place] [address] Care Team Providers Care Costume Cutter Name Role Phone Piyush Pandey MD Unavailable Unavailabl e Megan Infante MD Primary Care Provider [phone] Sharmila Davis APRN, NP-C Unavailable Linda Block MD Unavailable [phone] Jeff Grace MD Unavailable Reason for Visit * Reason Onset Date Comments Appointment Request 04/12/2019 Encounter Details Date Type Department Care Team (Late st Contact Info) Description 04/12/2019 Telephone [facility] [address] [place] [address] Piyush Pandey MD Appointment Request [...] encounter Progress Notes * Lavern Marley - 04/12/2019 12:56 PM CDT Received call from Fina in Dr. De La Rosa's office to schedule a f/u roderick. appt scheduled, letter mailed. documented in this encounter Plan of Treatment Upcoming Encounters Date Type Department Care Team (Late st Contact Info) Description 09/25/2024 2:00 PM FAILURE ANALYSIS TECHNICIAN Appointment [facility] [address] [place] [address] Zayra Powell, FROZEN YOGURT MAKER [address] [place] [phone] 10/16/2024 3:30 PM FAILURE ANALYSIS TECHNICIAN Office Visit [place] [facility] [address] [facility] [address] Brit Gonzáles MD [address] [place] [address] documented as of this encounter Visit Diagnoses Not on filedocumented in this encounter Care Teams Costume Cutter Relationship Specialty Start Date End Date Megan Infante MD [address] [facility] [place] [address] PCP - General FAMILY PRACTICE 04/06/16 Piyush Pandey MD [place] Timekeeper CARDIOVASCULAR DISEASE 04/06/16 12/28/23 Sharmila Davis, PBX SUPERVISOR, PRESS MAINTAINER-C [address] [facility] [address] [place] [address] NURSE PRACTITIONER 01/04/17 04/03/24 Linda Block MD [address] [facility] [address] [place] [address] [place] Timekeeper CLINICAL CARDIAC ELECTROPHYSIOLOGY 02/08/17 04/12/23 Jeff Grace MD [address] [place] [address] [address] Consulting Physician INTERNAL MEDICINE 02/20/19 3 documented as of this encounter
--- OUTSIDE RECORDS SUMMARY | 2024-09-03 19:15 | XMS_ITS | Encounter Summary ---
Author Organization [place] Address [facility]6 [place] [address] [place] [address] Care Team Providers Care Java Programmer Analyst Name Role Phone Piyush Pandey MD Unavailable Unavailabl e Megan Infante MD Primary Care Provider [phone] Sharmila Davis APRN, SAT INSTRUCTOR-C Unavailable Linda Block MD Unavailable [phone] Encounter Details Date Type Department Care Team (Late st Contact Info) Description 05/09/2018 Scan [facility] [address] [place] [address] Scanned, Documents Social History Tobacco Use Types [...] Contact Info) Description 09/25/2024 2:00 PM [address]ER Appointment [facility] [address] [place] [address] Zayra Powell, GROUNDS CREW SUPERVISOR [address] [place] [address] 10/16/2024 3:30 PM NIGHT CLEANER [facility] [address] [place] [phone] Brit Gonzáles MD [address] [place] [address] documented as of this encounter Procedures Procedure Name Priority Date/Time Associated Diagnosis Comments USE ECHOCARDIOGRAM Routine 05/09/2018 Aortic stenosis documented in this encounter Results * USE ECHOCARDIOGRAM (05/09/2018) Anatomical Region Laterality Modality Cardiac Echocardiogram us Piyush Pandey MD ECHO Final Resul t documented in this encounter Visit Diagnoses Diagnosis Aortic stenosis Aortic valve disorders documented in this encounter Care Teams Java Programmer Analyst Relationship Specialty Start Date End Date Megan Infante MD [address] [place] [address] PCP - General FAMILY PRACTICE 04/06/16 Piyush Pandey MD [employer] Deployment Specialist CARDIOVASCULAR DISEASE 04/06/16 12/28/23 Sharmila Davis APRN, SAT INSTRUCTOR-C [address] [facility] [address] [place] [address] NURSE PRACTITIONER 01/04/17 04/03/24 Linda Block MD [address] [facility] [address] [place] [address] [employer] Deployment Specialist CLINICAL CARDIAC ELECTROPHYSIOLOGY 02/08/17 04/12/23 documented as of this encounter
--- OUTSIDE RECORDS SUMMARY | 2024-09-03 19:15 | XMS_ITS | Encounter Summary ---
Author Organization [facility] Address [facility]6 [facility] [place] [address] [place] [address] Care Team Providers Care Food Mixer Assembler Name Role Phone Piyush Pandey MD Unavailable Unavailabl Megan Leos MD Primary Care Provider [phone] Sharmila Davis APRN, CASH TELLER-C Unavailable Linda Block MD Unavailable [phone] Encounter Details Date Type Department Care Team (Latest Contact Info) Description 05/25/2016 Abstract [facility] Shubham Callahan MD [address] [place] [address] Social History Tobacco Use Types Packs/Day Years [...] Contact Info) Description 09/25/2024 2:00 PM MOTOR VEHICLE LECTURER Appointment [facility] [address] [place] [address] Zayra Powell, DIE FINISHER FORGING [address] [place] [address] 10/16/2024 3:30 PM MOTOR VEHICLE LECTURER [facility] [address] [place] [address] Brit Gonzáles MD [address] [place] [address] documented as of this encounter Visit Diagnoses Not on filedocumented in this encounter Care Teams Food Mixer Assembler Relationship Specialty Start Date End Date Megan Infante MD [address] [place] [phone] PCP - General FAMILY PRACTICE 04/06/16 Piyush Pandey MD [employer] Retail Buyer CARDIOVASCULAR DISEASE 04/06/16 12/28/23 Sharmila Davis APRN, CASH TELLER-C [address] [facility] [address] [place] [phone] NURSE PRACTITIONER 01/04/17 04/03/24 Linda Block MD [address] [facility] [address] [place] [phone] [employer] Retail Buyer CLINICAL CARDIAC ELECTROPHYSIOLOGY 02/08/17 04/12/23 documented as of this encounter
--- OUTSIDE RECORDS SUMMARY | 2024-09-03 19:15 | XMS_ITS | Encounter Summary ---
Author Organization [facility] Address [facility]6 [facility] [place] [address] [place] [address] Care Team Providers Care Director Of Enterprise Applications Name Role Phone Piyush Pandey MD Unavailable Unavailabl e Megan Infante MD Primary Care Provider [phone] Sharmila Davis APRN, CORSET MAKER-C Unavailable Linda Block MD Unavailable [phone] Jeff Grace MD Unavailable Reason for Visit * Reason Comments Follow Up Shortness Of Breath Encounter Details Date Type Department Care Team (Latest Contact Info) Description 05/05/2019 11:00 AM CDT Office Visit [facility] [address] [place] [address] Sharmila Davis, DANNY, CORSET MAKER-C [address] [facility] [address] [place] [address] Follow Up; Shortness Of Breath Social History Tobacco Use [...] Sign Reading Time Taken Comments Blood Pressure 142/70 05/05/2019 10:57 AM CDT Pulse 78 05/05/2019 10:57 AM CDT Temperature - - Respiratory Rate 18 05/05/2019 10:57 AM CDT Oxygen Saturation 94% 05/05/2019 10:57 AM CDT Inhaled Oxygen Concentration - - Weight 101.2 kg (223 lb) 05/05/2019 10:57 AM CDT Height 168.9 cm (5' 6.5 ) 05/05/2019 10:57 AM CD T Body Mass Index 35.45 05/05/2019 10:57 AM CDT documented in this encounter Patient Instructions * Patient Instructions* Sharmila Davis APRN, NP-C - 05/05/2019 11:00 AM CDT 1. Increase furosemide from 80 mg daily to 120 mg daily for three days (this will be 3 tablets of the 40 mg pills). Then return to 80 mg daily. 2. Labs today. 3. Verify medications at home. Let me know if you are taking both labetalol and carvedilol. 4. Call Wednesday with an update. 5. If no improvement, we can consider a stress test and then referral to Dr. Callahan. documented in this encounter Progress Notes * Sharmila Davis APRN, NP-C - 05/05/2019 11:00 AM CDT FROM: Sharmila Davis APRN, NP-C, collaborating physician Piyush Pandey III, M.D. RE: Mendez Lay : 1955 Reason for Visit: Follow Up and Shortness Of Breath History of Present Illness: Mr. Lay is a pleasant 63-year-old male seen in the cardiology clinic today for a followup visit regarding shortness of breath. He has a history of mild coronary artery disease, paroxysmal atrial fibrillation s/p PVI/WACA per Dr. Block on 10/24/15 and cardioversion in 03/2016, aortic stenosis s/p mechanical valve replacement in 1999 and bioprosthetic valve replacement 2013, LV dysfunction, mild carotid stenosis, hypertension, hyperlipidemia, type II diabetes, and COPD. He denies any anginal chest pain. However, over the past 2 to 3 weeks he has had increased dyspnea upon exertion. He denies any precipitating events such as infection, NSAID use, or increased sodium.He has a frequent productive cough and has lost his voice on occasion. He denies specific orthopnea, but tells me that he has been sleeping in a recliner for the past 3 to 4 weeks due to waking up gasping for air. He has a history of sleep apnea, but has been intolerant to CPAP. He denies significant weight gain, but has had occasional lower extremity edema. He reports that his activity has become extremely limited due to his shortness of breath after simply walking across the room. He has no pa lpitations, lightheadedness, or syncope. He denies signs and symptoms of CVA or TIA. He seems to betolerating his present medications well without reported side effects. He denies signs of bleeding. Evaluation during the clinic visit included an EKG which confirmed the presence of atrial fibrillation at a rate of 78 beats per minute with a left bundle branch block. His preliminary echocardiogramresults today demonstrate a left ventricular ejection fraction of 53% with moderate asymmetric LVH,normal LVOT, no wall motion abnormalities, well-functioning bioprosthetic aortic valve replacement with a peak velocity 2.5 m/s, peak gradient 25 mmHg, mean gradient 14 mmHg, and aortic valve area of1.18 cm??, no perivalvular aortic regurgitation, and no documentation of mitral or tricuspid regurgitation due to inadequate imaging. Recommendations/Plan: Mr. Lay's increased dyspnea is concerning. His atrial fibrillation rate is well controlled. His preliminary echocardiogram results are stable and do not reveal any obvious etiology to his symptoms. His last cardiac catheterization in 2013 revealed mild coronary disease with severe pulmonary hypertension. A nuclear stress test in January 2017 did not identify any reversible defect suggestive of ischemia. He did have multiple fixed defects. We discussed that he does have underlying pulmonary issues, such as his COPD and pulmonary hypertension. He tells me that he has not seen his outside maintenance worker for a couple years. We will trial a temporary increase in his diuretics. If this does not provide any significant improvement, we can then consider repeating a stress test and referral back to pulmonology. I have recommended the following to Mr. Lay: 1. Dyspnea. We will check a CBC, BMP, and proBNP today. I have instructed him to increase his furosemide from 80 mg daily to 120 mg daily for the next 3 days. He can then return to 80 mg daily. He tells me that he has not been taking his potassium supplements since he noticed that losartan had potassium in it. We will determine the need for supplementation after receiving his lab results today. 2. CAD. His last stress test was stable. We can consider repeating an adenosine nuclear stress testif increased diuretics do not improve his symptoms. For now, he will continue his aspirin, beta-kim, and statin. Labetalol and carvedilol were both on his medication list. He does not believe that he is taking labetalol. I have asked him to verify his medications once he returns home. 3. Aortic Valve Replacement. His preliminary echocardiogram results demonstrate a well-functioning bioprosthetic aortic valve replacement. He will continue his low-dose aspirin. I reminded him of SBEantibiotic prophylaxis prior to any dental procedures. 4. Atrial Fibrillation. His heart rate is well controlled with carvedilol. He is anticoagulated with warfarin. He has asked us to recheck an INR to send to Dr. Infante since we are drawing labs today. 5. Hypertension. His blood pressure is mildly elevated in the office today. The increased diuretic should improve his readings. 6. Hyperlipidemia. He is currently treated with atorvastatin and reports no apparent side effects. We will continue to defer lipid management to Dr. Infante. An LDL cholesterol of less than 70 is recommended. Further recommendations pending final results and clinical course. I have encouraged him to contactme in the meantime should he have any [...] at bedtime. , Disp: , Rfl: ??? benzonatate 100 [...] Rfl: ??? furosemide 40 MG tablet, Take 80 mg by mouth daily. , Disp: , Rfl: ??? gabapentin 100 MG capsule, Take 100 mg by mouth 3 (three) times daily. , Disp: , Rfl: ??? glipiZIDE XL 5 MG 24 hr tablet, Take 5 mg by mouth daily with breakfast. Do not break or crush tablet, Disp: , Rfl: ??? hydrocodone-acetaminophen 7.5-325 MG tablet, Take 1 tablet by mouth every 6 (six) hours as needed. , Disp: , Rfl: ??? latanoprost 0.005 % ophthalmic solution, INSTILL 1 DROP INTO BOTH EYES AT BEDTIME, Disp: , Rfl:3 ??? losartan 50 MG tablet, , Disp: , Rfl: ??? magnesium oxide 400 (241.3 MG) MG tablet, Take 400 mg by mouth daily. , Disp: , Rfl: ??? metFORMIN 500 [...] Rfl: 3 ??? tizanidine 2 MG tablet, Take 2 mg by mouth every 8 (eight) hours as needed. , Disp: , Rfl: ??? trazodone 100 MG tablet, Take 200 mg by mouth nightly at bedtime. at bedtime, Disp: , Rfl: 3 ??? triamcinolone 0.5 % cream, , Disp: , Rfl: ??? warfarin 1 MG tablet, 1 mg. Take 2.5 tablets with 0.5 of 10 mg tablet to = 7.5 mg, Disp: , Rfl: ??? warfarin 10 MG tablet, 10 mg. Take 0.5 tablet along with 2.5 tablets of 1 mg to = 7.5 mg, Disp:, Rfl: No Known Allergies Past Medical History: [...] vision and double vision. Respiratory: Positive for cough and shortness of breath. Negative for snoring. Cardiovascular: See HPI Gastrointestinal: Negative for blood in stool and melena. Genitourinary: Negative for dysuria. Musculoskeletal: Negative for myalgias and new or worsening joint stiffness/pain. Skin: Negative for rash. Neurological: Negative for tingling/numbness and focal weakness. Endo/Heme/Allergies: Negative for new or significant bruising/bleeding and polydipsia. Psychiatric/Behavioral: Negative for depression and new or significant memory loss. Vitals: 05/05/19 1057 BP: 142/70 Patient Position: Sitting BP Location: Right arm Pulse: 78 Weight: 101.2 kg (223 lb) Height: 5' 6.5 (1.689 m) Body mass index is 35.45 kg/m??. Physical Exam Rate/Rhythm: normal rate irregularly irregular rhythm. . Heart Sounds: normal heart sounds, normal S1 and normal S2 no gallop, no S3 sound, no S4 sound and no murmur. . PMI: PMI not displaced. Pulses: Right Carotid pulses 2+, Left Carotid pulses 2+, Right DP pulses 2+, Left DP pulses 2+, Right PT pulses 2+Left PT Pulses 2+, Edema left: 1+. , Edema Right: 1+. , Constitutional: healthy appearance not distressed. . Neck: neck supple no JVD. . Pulmonary/Chest Wall: breath sounds normal increased effort. HEENT: teeth/gums normal and oropharynx clear and moist. . Abdomen: no tenderness, no mass, no hepatomegaly, no splenomegaly, abdominal aorta not palpably enlarged and no abdominal aortic bruit. . Eyes: conjunctivae normal. Neurological: alert, oriented x 3 and appropriate for situation, . Skin: dry and warm no cyanosis and no clubbing. Musculoskeletal: no kyphosis Cardiovascular Comments: Diagnoses/Impression: 1. Shortness of breath CBC, AUTO, NO DIFF COMPREHENSIVE METABOLIC PANEL PRO-BRAIN NATRIURETIC PEPTIDE 2. Coronary artery disease involving nome coronary artery of nome heart, angina presence unspecified 3. S/P aortic valve replacement with bioprosthetic valve 4. Chronic atrial fibrillation (CMS/HCC) 5. Current use of care home anticoagulation PROTHROMBIN TIME, VENOUS 6. Essential hypertension 7. Mixed hyperlipidemia [place] Documentation Completed: Atrial Fibrillation Coronary Artery Disease Heart Failure Referring Provider: No ref. provider found PCP: MEGAN INFANTE MD documented in this encounter Plan of Treatment Upcoming Encounters Date Type Department Care Team (Late st Contact Info) Description 09/25/2024 2:00 PM DICTAPHONE OPERATOR Appointment [facility] [address] [place] [address] Zayra Powell FNP [address] [place] [address] 10/16/2024 3:30 PM DICTAPHONE OPERATOR Office Visit [facility] [address] [place] [address] Brit Gonzáles MD [address] [place] [address] documented as of this encounter Results * (ABNORMAL) PROTHROMBIN TIME, VENOUS (05/05/2019 11:59 AM CDT) PROTIME 26.5(H) 11.6 - 14.3 SEC 05/05/2019 12:16 PM CDT [facility] INR 2.5(H) 0.9 - 1.1 05/05/2019 12:16 PM CDT [facility] 05/05/2019 11:5 9 AM CDT Sharmila Davis APRN, NP-C LABORATORY Final Result Performing Organization Address [facility] de Phone Number [facility] [address] [place] [address], [id number] * (ABNORMAL) PRO-BRAIN NATRIURETIC PEPTIDE (05/05/2019 11:59 AM CDT) [facility] PRO-B TYPE NATRIURETIC PEPTIDE 470(H) <125 PG/ML 05/05/2019 12:35 PM CDT [facility] Comment: AGE INDEPENDENT: <300 PG/ML [...] ACUTE CHF. 05/05/2019 11:5 9 AM CDT us Sharmila Davis APRN, NP-C LABORATORY Final Result Performing Organization Address [facility] de Phone Number [facility] [address] [place] [address], [id number] * (ABNORMAL) COMPREHENSIVE METABOLIC PANEL (05/05/2019 11:59 AM CDT) SODIUM S/P/B 133(L) 136 - 145 MMOL/L 05/05/2019 12:35 PM CDT [facility] POTASSIUM S/P/B 3.9 3.5 - 5.1 MMOL/L 05/05/2019 12:35 PM T [facility] CHLORIDE S/P/B 100 98 - 107 MMOL/L 05/05/2019 12:35 PM CDT [facility] CO2 29.0 21.0 - 32.0 MMOL/L 05/05/2019 12:35 PM CDT [facility] GLUCOSE 135(H) 74 - 106 MG/DL 05/05/2019 12:35 PM T [facility] BUN 27(H) 7 - 18 MG/DL 05/05/2019 12:35 PM T [facility] CREATININE S/P/B 1.25 0.70 - 1.30 MG/DL 05/05/2019 12:35 PM CDT [facility] CALCIUM S/P/B 9.3 8.5 - 10.1 MG/DL 05/05/2019 12:35 PM CDT [facility] BILIRUBIN TOTAL S/P/B 1.0 0.2 - 1.0 MG/DL 05/05/2019 12:35 PM T [facility] ALKALINE PHOSPHATASE S/P/B 95 45 - 115 U/L 05/05/2019 12:35 PM CDT [facility] AST 21 15 - 37 U/L 05/05/2019 12:35 PM CDT [facility] ALT 44 16 - 61 U/L 05/05/2019 12:35 PM CDT [facility] TOTAL PROTEIN S/P/B 8.2 6.4 - 8.2 G/DL 05/05/2019 12:35 PM T [facility] ALBUMIN S/P/B 3.3(L) 3.4 - 5.0 G/DL 05/05/2019 12:35 PM CDT [facility] ANION GAP 4.0(L) 5.0 - 15.0 MMOL/L 05/05/2019 12:35 PM CDT [facility] Comment:REFERENCE RANGE NOT ESTABLISHED OSMOLALITY (CALC) 283 MOSM/KG 05/05/2019 12:35 PM CDT [facility] Comment:REFERENCE RANGE NOT ESTABLISHED EGFR NON-AFR. AMER. 60(L) >90 ML/MIN/1 .73 M2 05/05/2019 12:35 PM CDT [facility] EGFR AFR. AMER. 70(L) >90 ML/MIN/1 .73 M2 05/05/2019 12:35 PM CDT [facility] GFR NOTES THE ESTIMATED GFR IS CALCULATED USING THE 2009 CKD-EPI EQUATION. THE FOLLOWING CATEGORIES FOR GRADING RENAL FUNCTION ARE RECOMMENDED BY THE INTERNATIONAL SOCIETY OF NEPHROLOGY (KDIGO 2012 CLINICAL PRACTICE GUIDELINE). 05/05/2019 12:35 PM CDT [facility] Comment: G1,NORMAL OR HIGH: >89 ml/min/1.73 m2 G2,MILDLY DECREASED: 60-89 ml/min/1.73 m2 G3A,MILDLY TO MODERATELY DECREASED: 45-59 ml/min/1.73 m2 G3B,MODERATELY TO SEVERELY DECREASED: 30-44 ml/min/1.73 m2 G4,SEVERELY DECREASED: 15-29 ml/min/1.73 m2 G5,KIDNEY FAILURE: <15 ml/min/1.73 m2 05/05/2019 11:5 9 AM CDT ALDAIR Guillen APRNC LABORATORY Final Result [facility] [address] [place] [address], [id number] * (ABNORMAL) CBC, AUTO, NO DIFF (05/05/2019 11:59 AM CDT) WBC 9.3 4.0 - 10.8 x10'3/uL 05/05/2019 12:07 PM CDT [facility] RBC 4.04(L) 4.50 - 6.10 x10'6/uL 05/05/2019 12:07 PM CDT [facility] HGB 12.3(L) 13.0 - 18.0 G/DL 05/05/2019 12:07 PM CDT [facility] HCT 37.9 37.0 - 52.0 % 05/05/2019 12:07 PM CDT [facility] MCV 93.8 78.0 - 100.0 FL 05/05/2019 12:07 PM CDT [facility] MCH 30.4 27.0 - 31.0 PG 05/05/2019 12:07 PM CDT [facility] MCHC 32.5(L) 33.0 - 36.0 G/DL 05/05/2019 12:07 PM CDT [facility] RDW 14.7(H) 11.5 - 14.5 % 05/05/2019 12:07 PM CDT [facility] PLT 217 150 - 350 x10'3/uL 05/05/2019 12:07 PM CDT [facility] MPV 9.4 7.4 - 10.4 FL 05/05/2019 12:07 PM CDT [facility] 05/05/2019 11:5 9 AM CDT ALDAIR Guillen APRNC LABORATORY Final Result [facility] [address] [place] [address], [id number] documented in this encounter Visit Diagnoses Diagnosis Shortness of breath Coronary artery disease involving nome coronary artery of nome heart, angina presence unspecified S/P aortic valve replacement with bioprosthetic valve Heart valve replaced by other means Chronic atrial fibrillation ([facility]/HCC [facility]/HCC) Atrial fibrillation Current use of termite control servicer anticoagulation Encounter for long-term (current) use of anticoagulants Essential hypertension Unspecified essential hypertension Mixed hyperlipidemia documented in this encounter Care Teams Director Of Enterprise Applications Relationship Specialty Start Date End Date Megan Infante MD [address] [place] [address] PCP - General FAMILY PRACTICE 04/06/16 Piyush Pandey MD [employer]mbrella Cutter CARDIOVASCULAR DISEASE 04/06/16 12/28/23 Sharmila Davis, ASSISTANT SPA DIRECTOR, CORSET MAKER-C [address] [facility] [address] [place] [address] NURSE PRACTITIONER 01/04/17 04/03/24 Linda Block MD [address] [facility] [address] [place] [address] [employer] Cutter CLINICAL CARDIAC ELECTROPHYSIOLOGY 02/08/17 04/12/23 Jeff Grace MD [address] [facility] [address] [place] [address] Consulting Physician INTERNAL MEDICINE 02/20/19 3 documented as of this encounter
--- OUTSIDE RECORDS SUMMARY | 2024-09-03 19:15 | XMS_ITS | Encounter Summary ---
Author Organization [facility] Address [facility]6 [facility] [address] [place] [address] Care Team Providers Care Food Service Coordinator Name Role Phone Piyush Pandey MD Unavailable Unavailabl e Megan Infante MD Primary Care Provider [phone] Sharmila [place] APRN, NP-C Unavailable [phone] Linda Block MD Unavailable [phone] Jeff Grace MD Unavailable Reason for Referral * Imaging (Routine) - Closed Specialty Diagnoses / Procedures Referred By Contac t Referred To Contact CARDIOLOGY Diagnoses Bilateral carotid bruits Procedures USV CAROTID DUPLEX Jeff Pulido MD [address] [place] [address] Phone: tel: fax: Referral ID Status Reason Start Date Expiration Date Visits Re quested Visits Authorized [id number] Closed 03/07/2019 04/07/2020 1 1 * Imaging (Routine) - Closed Specialty Diagnoses / Procedures Referred By Contac t Referred To Contact CARDIOLOGY Diagnoses Pain in both lower extremities Procedures USV ART DUPLEX LOW Jeff Pulido MD [address] [place] [address] Phone: tel: fax: Referral ID Status Reason Start Date Expiration Date Visits Re quested Visits Authorized [id number] Closed 03/07/2019 04/07/2020 1 1 Reason for Visit * Reason Comments Consult claudication Encounter Details Date Type Department Care Team (Latest Contact Info) Description 03/07/2019 2:00 PM CDT Office Visit [facility] [address] [place] [phone] Jeff Grace MD [address] [place] [address] Consult (claudication) Social History Tobacco Use Types Packs/Day Years [...] Sign Reading Time Taken Comments Blood Pressure 116/61 03/07/2019 1:54 PM CDT Pulse 63 03/07/2019 1:54 PM CDT Temperature - - Respiratory Rate 20 03/07/2019 1:54 PM CDT Oxygen Saturation - - Inhaled Oxygen Concentration - - Weight 100.9 kg (222 lb 6.4 oz) 03/07/2019 1:53 PM CDT Height 167.6 cm (5' 6 ) 03/07/2019 1:53 PM CDT Body Mass Index 35.9 03/07/2019 1:53 PM CDT documented in this encounter Progress Notes * Jeff Grace MD - 03/07/2019 2:00 PM CDT Reason for Visit: Consult (claudication) History of Present Illness: 63-year-old male who was referred to me for evaluation of bilateral lower extremity pain.Patient's cardiovascular history consists of: 1. Bilateral lower extremity pain. 2. Atrial fibrillation. 3. Carotid artery disease. 4. Bioprosthetic aortic valve replacement. 5. Hypertension. 6. COPD and congestive heart failure. The patient tells me that he has pain in his legs when he has to stand up from the chair or when heis sitting down on lower. He tells me when he gets there, he can walk though he still gets some pain on walking, but he still feels he can walk. He had recent ABIs that showed right STELLA is 1.24, leftABI is 1.50. He sees Dr. Pandey for his heart, has been on Amlodipine, unclear if it is 5 or 10 mg, but on checking with pharmacy, it seems he is on 5 mg daily. ASSESSMENT AND PLAN: 1. Bilateral leg pain. I think patient's pain is more secondary to arthritis as it is more on standing up and trying to get up from the chair rather than walking. His ABIs were normal/consistent withcalcific disease, which is possible given his diabetes and age. I will go ahead and get bilateral lower extremity artery duplex, though I suspect that his disease is mainly arthritic in nature. 2. Carotid artery disease. I do not have recent carotids. I will go ahead and repeat carotid arteryduplex on him. 3. Hypertension. Patient is on good medications, but he has quite a bit of swelling in his legs. I will go ahead and decrease his Amlodipine to 2.5 mg daily. His blood pressure is only 116 and 120. 4. Congestive heart failure. Would defer to Dr. Pandey. 5. COPD. He is on inhalers. 6. Hyperlipidemia. He is on statins, which I will defer to you. Follow up in 4-6 weeks with a carotid artery duplex and bilateral lower extremity arterial duplex. Medications: Current Outpatient Medications: ??? amlodipine 2.5 MG tablet, Take 1 tablet (2.5 mg total) by mouth daily., Disp: 30 tablet, Rfl: 1 ??? albuterol sulfate HFA (PROAIR HFA) 108 (90 BASE) MCG/ACT inhaler, ProAir HFA (albuterol sulfate) HFA aerosol inhaler 90 mcg/actuation; 2 puffs as needed for coughing or wheezing; 0; -Oct-2015; Active, Disp: , Rfl: ??? allopurinol 300 MG tablet, , Disp: , Rfl: ??? aspirin (ASPIRIN CHILDRENS) [...] cream, , Disp: , Rfl: ??? warfarin 10 [...] Hypertension ??? LV dysfunction ??? Osteoarthritis ??? Restless leg syndrome ??? S/P aortic [...] new or significant memory loss. Filed Vitals: 03/07/19 1353 03/07/19 1354 BP: 120/68 116/61 Pulse: 63 63 Resp: 20 20 Weight: 100.9 kg (222 lb 6.4 oz) Height: 5' 6 (1.676 m) Vitals: 03/07/19 1353 03/07/19 1354 BP Location: Left arm Right arm BP: 120/68 116/61 Pulse: 63 63 Body mass index is 35.9 kg/m??. Physical Exam Rate/Rhythm: regular rhythm and [...] no clubbing. Musculoskeletal: no kyphosis Cardiovascular Comments: 1+ pitting edema bilaterally Diagnoses/Impression: 1. Pain in both lower extremities USV ART DUPLEX LOW ELZA 2. Essential hypertension 3. Mixed hyperlipidemia 4. Bilateral carotid bruits USV CAROTID DUPLEX ELZA Referring Provider: No ref. provider found PCP: MEGAN INFANTE MD documented in this encounter Plan of Treatment Upcoming Encounters Date Type Department Care Team (Late st Contact Info) Description 09/25/2024 2:00 PM TRUCK SALES MANAGER Appointment [facility] [address] [facility] [place] [address] Zayra Powell, STATIONARY EQUIPMENT MECHANIC [address] [place] [address] 10/16/2024 3:30 PM TRUCK SALES MANAGER Office Visit [facility] [facility] [address] [facility] [place] [address] Brit Gonzáles MD [address] [place] [address] documented as of this encounter Results * USV CAROTID DUPLEX ELZA (03/07/2019 4:12 PM CDT) Anatomical Region Laterality Modality Neck Ultrasound Jeff Grace MD [facility]ASC Final Result * USV ART DUPLEX LOW ELZA (03/07/2019 3:26 PM CDT) Anatomical Region Laterality Modality Extremity Ultrasound Result [facility] Jeff Grace MD [facility] Final Result documented in this encounter Visit Diagnoses Diagnosis Pain in both lower extremities- Primary Essential hypertension Unspecified essential hypertension Mixed hyperlipidemia Bilateral carotid bruits documented in this encounter Care Teams Food Service Coordinator Relationship Specialty Start Date End Date Megan Infante MD [address] [facility] [place] [address] PCP - General FAMILY PRACTICE 04/06/16 Piyush Pandey MD [place] [employer] Former CARDIOVASCULAR DISEASE 04/06/16 12/28/23 Sharmila [place] APRN, SILK PRINTER-C [address] [facility] [address] [place] [address] NURSE PRACTITIONER 01/04/17 04/03/24 Linda Block MD [address] [facility] [address] [place] [address] [place] [employer] Former CLINICAL CARDIAC ELECTROPHYSIOLOGY 02/08/17 04/12/23 Jeff Grace MD [address] [facility] [address] [place] [address] Consulting Physician INTERNAL MEDICINE 02/20/19 6 3 documented as of this encounter
--- OUTSIDE RECORDS SUMMARY | 2024-09-03 19:15 | XMS_ITS | Encounter Summary ---
Author Organization [facility] Address [address] [place] [address]. [place] [address] [place] [address] Care Team Providers Care Wood Turner Name Role Phone Piyush Pandey MD, Amy E MD Primary Care Provider [phone] Encounter Details Date Type Department Care Team (Late Contact Info) Description 06/16/2016 Scan [facility] [address] [place] [address] Scanned, Documents Social History Tobacco Use [...] (Late Contact Info) Description 09/25/2024 2:00 PM SWISS MACHINIST Appointment [facility] [address] [place] [address] Zayra Powell, FINISHER MAP AND CHART [address] [place] [address] 10/16/2024 3:30 PM SWISS MACHINIST Office Visit [facility] [address] [place] [phone] Brit Gonzáles MD [address] [place] [address] documented as of this encounter Visit Diagnoses Not on filedocumented in this encounter Care Teams Wood Turner Relationship Specialty Start Date End Date Megan Infante MD [address] [facility] [place] [address] PCP - General FAMILY PRACTICE 04/06/16 Piyush Pandey MD [place] [employer] Specialist CARDIOVASCULAR DISEASE 04/06/16 12/28/23 documented as of this encounter
--- OUTSIDE RECORDS SUMMARY | 2024-09-03 19:15 | XMS_ITS | Encounter Summary ---
Author Organization [facility] Address [facility]6 [facility] [place] [address] [place] [address] Care Team Providers Care Cutter Gas Name Role Phone Piyush Pandey MD Unavailable Unavailabl e Megan Infante MD Primary Care Provider [phone] Sharmila [place] APRN, PUBLIC DEFENDER-C Unavailable Linda Block MD Unavailable [phone] Reason for Visit * Reason Comments Follow Up rate control- PVI/WA CA 10/23/15 Encounter Details Date Type Department Care Team (Latest Contact Info) Description 02/15/2017 12:15 PM CDT Office Visit [facility] [address] [place] [address] Linda Block MD [address] [facility] [facility] [address] [place] [address] Follow Up (rate control- PVI/WACA 10/23/15) Social History Tobacco Use Types Packs/Day Years [...] Sign Reading Time Taken Comments Blood Pressure 152/76 02/15/2017 12:00 PM CDT Pulse 60 02/15/2017 12:00 PM CDT Temperature - - Respiratory Rate 22 02/15/2017 12:00 PM CDT Oxygen Saturation - - Inhaled Oxygen Concentration - - Weight 91.2 kg (201 lb) 02/15/2017 12:00 PM CDT Height 167.6 cm (5' 6 ) 02/15/2017 12:00 PM CDT Body Mass Index 32.44 02/15/2017 12:00 PM CDT documented in this encounter Progress Notes * Linda Block MD - 02/15/2017 12:15 PM CDT Reason for Visit: No chief complaint on file. History of Present Illness: Mr. Lay is seen in arrhythmia clinic today in follow-up for his history of chronic permanent atrial fibrillation managed with rate control strategy. 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 His original mechanical prosthesis was replaced with a bovine bioprosthetic aortic valve in 2013.This demonstrates a moderately severe degree of stenosis presently. Currently, he reports no symptoms referrable to angina heart failure or cardiac arrhythmia such as syncope or near syncope. His most recent ejection fraction from April 2016 is 45% by echocardiogram. He remains on carvedilol for rate control and takes Coumadin for stroke prevention as well as with regard to his valve. Recommendations and Plan: I had a lengthy discussion with Mr. Lay regarding his current rhythm management and advised thatwe stay the course. Rate appears to be under good control on the current regimen. I'll plan to see him again in one year, certainly sooner if needed. Warmest regards Medications: Current Outpatient Prescriptions: ??? acetaminophen (TYLENOL) 500 MG tablet, Take 1 tablet by mouth every 4 (four) hours as needed., Disp: , Rfl: ??? albuterol sulfate HFA (PROAIR HFA) 108 (90 BASE) MCG/ACT inhaler, ProAir HFA (albuterol sulfate) HFA aerosol inhaler 90 mcg/actuation; 2 puffs as needed for coughing or wheezing; 0; -Oct-2015; Active, Disp: , Rfl: ??? amlodipine 10 MG tablet, , Disp: , Rfl: ??? aspirin (ASPIRIN CHILDRENS) 81 MG chewable tablet, Chew 1 tablet by mouth daily., Disp: , Rfl: ??? atorvastatin 80 MG tablet, , Disp: , Rfl: ??? carvedilol 6.25 MG tablet, Take 2 tablets (12.5 mg total) by mouth 2 (two) times daily with meals., Disp: 180 tablet, Rfl: 2 ??? clonazePAM 1 MG tablet, , Disp: , Rfl: ??? furosemide 40 MG tablet, Take 40 mg by mouth daily., Disp: , Rfl: 3 ??? hydrocodone-acetaminophen 7.5-325 MG tablet, , Disp: , Rfl: ??? latanoprost 0.005 [...] or significant shortness of breath and snoring. Reports difficulty breathing at night and with exertion Cardiovascular: See HPI Positive for palpitations. Gastrointestinal: [...] were no vitals filed for this visit. Physical Exam Constitutional: He is oriented to person, place, and time. He appears well- developed and well-nourished. No distress. HENT: Mouth/Throat: Oropharynx is clear and moist. Eyes: Conjunctivae are normal. Neck: Neck supple. Normal carotid pulses and no JVD present. Carotid bruit is not present. Cardiovascular: Normal rate, regular rhythm, normal heart sounds and normal pulses. PMI is not displaced. No murmur heard. Pulses: Femoral pulses are 2+ on the right side, and 2+ on the left side. Dorsalis pedis pulses are 2+ on the right side, and 2+ on the left side. Pulmonary/Chest: Effort normal and breath sounds normal. Abdominal: Soft. Normal aorta and bowel sounds are normal. He exhibits no abdominal bruit and no mass. There is no hepatosplenomegaly. There is no tenderness. Musculoskeletal: He exhibits no edema. Neurological: He is alert and oriented to person, place, and time. Neuro exam grossly normal. Skin: Skin is warm and dry. No rash noted. No cyanosis. Nails show no clubbing. Psychiatric: He has a normal mood and affect. Vitals reviewed. Diagnoses/Impression: 1. Permanent atrial fibrillation ELECTROCARDIOGRAM (NON MIDMARK ACQUIRED) 2. Chronic anticoagulation [place] Documentation Completed: Atrial Fibrillation Referring Provider: Megan Infante PCP: MEGAN INFANTE documented in this encounter Plan of Treatment Upcoming Encounters Date Type Department Care Team (Late st Contact Info) Description 09/25/2024 2:00 PM SONG PLUGGER Appointment [facility] [address] [place] [address] Zayra Powell FNP [address] [place] [address] 10/16/2024 3:30 PM SONG PLUGGER Office Visit [facility] [address] [place] [address] Brit Gonzáles MD [address] [place] [address] documented as of this encounter Visit Diagnoses Diagnosis Permanent atrial fibrillation ([facility]/HCC [facility]/HCC)- Primary Atrial fibrillation Chronic anticoagulation Encounter for long-term (current) use of anticoagulants documented in this encounter Care Teams Cutter Gas Relationship Specialty Start Date End Date Megan Infante MD [address] [facility] [place] [phone] PCP - General FAMILY PRACTICE 04/06/16 Piyush Pandey MD [place] Power Sweeper Operator CARDIOVASCULAR DISEASE 04/06/16 12/28/23 Sharmila [place], PRODUCT PICKER, PUBLIC DEFENDER-C [address] [facility] [address] [place] [address] NURSE PRACTITIONER 01/04/17 04/03/24 Linda Block MD [address] [facility] [address] [place] [address] [place] Power Sweeper Operator CLINICAL CARDIAC ELECTROPHYSIOLOGY 02/08/17 04/12/23 documented as of this encounter
--- OUTSIDE RECORDS SUMMARY | 2024-09-03 19:15 | XMS_ITS | Encounter Summary ---
Author Organization [facility] Address [address] [place] [address]. [place] [address] [place] [address] Care Team Providers Care Electrical Engineering Draftsperson Name Role Phone Piyush Pandey MD Unavailable Unavailabl Megan Leos MD Primary Care Provider [phone] Sharmila [place] APRN FEED ELEVATOR WORKER-C Unavailable Linda Block MD Unavailable [phone] Encounter Details Date Type Department Care Team (Late st Contact Info) Description 07/21/[address] [facility] [address] [place] [address] Megan Infante MD [address] [place] [address] Social History Tobacco Use Types Packs/Day [...] (Late Contact Info) Description 09/25/2024 2:00 PM RECORDS SECTION SUPERVISOR Appointment [facility] [address] [place] [address] Zayra Powell, SUMMER LAW CLERK [address] [place] [address] 10/16/2024 3:30 PM RECORDS SECTION SUPERVISOR [facility] [address] [place] [address] Brit Gonzáles MD [address] [place] [address] documented as of this encounter Visit Diagnoses Diagnosis Sleep apnea Unspecified sleep apnea documented in this encounter Care Teams Electrical Engineering Draftsperson Relationship Specialty Start Date End Date Megan Infante MD [address] [place] [address] PCP - General FAMILY PRACTICE 04/06/16 Piyush Pandey MD [place] Life Skills Educator CARDIOVASCULAR DISEASE 04/06/16 12/28/23 Sharmila [place] APRN, FEED ELEVATOR WORKER-C [address] [facility] [address] [place] [address] NURSE PRACTITIONER 01/04/17 04/03/24 Linda Block MD [address] [facility] [address] [place] [address] [place] Life Skills Educator CLINICAL CARDIAC ELECTROPHYSIOLOGY 02/08/17 04/12/23 documented as of this encounter
--- OUTSIDE RECORDS SUMMARY | 2024-09-03 19:15 | XMS_ITS | Encounter Summary ---
Author Organization [facility] Address [facility]6 [facility] [place] [address] [place] [address] Care Team Providers Care Manufacturing Test Technician Name Role Phone Piyush Pandey MD Unavailable Unavailabl e Megan Infante MD Primary Care Provider [phone] Sharmila [place] APRN, SUPERVISOR WEAVING-C Unavailable Linda Block MD Unavailable [phone] Encounter Details Date Type Department Care Team (Late st Contact Info) Description 01/04/[address] [facility] [address] [place], [place] [address] Sharmila [place] APRN, SUPERVISOR WEAVING-C [address] [facility] [address] [place] [address] Social History Tobacco Use Types Packs/Day Years [...] st Contact Info) Description 09/25/2024 2:[address] [facility] [address] [place] [address] Zayra Powell, GROUP MANAGING DIRECTOR [address] [place] [address] 10/16/2024 3:30 PM SHOE CUTTER Office Visit [facility] [address] [place] [address] Brit Gonzáles MD [address] [place] [address] documented as of this encounter Visit Diagnoses Diagnosis Other chest pain documented in this encounter Care Teams Manufacturing Test Technician Relationship Specialty Start Date End Date Megan Infante MD [address] [facility] [place] [address] PCP - General FAMILY PRACTICE 04/06/16 Piyush Pandey MD [place] Nanotechnology Engineering Technologist CARDIOVASCULAR DISEASE 04/06/16 12/28/23 Sharmila [place] APRN, SUPERVISOR WEAVING-C [address] [facility] [address] [place] [address] NURSE PRACTITIONER 01/04/17 04/03/24 Linda Block MD [address] [facility] [address] [place] [address] [place] Nanotechnology Engineering Technologist CLINICAL CARDIAC ELECTROPHYSIOLOGY 02/08/17 04/12/23 documented as of this encounter
--- OUTSIDE RECORDS SUMMARY | 2024-09-03 19:15 | XMS_ITS | Encounter Summary ---
Author Organization [facility] Address [facility]6 [facility] [place] [address] [place] [address] Care Team Providers Care Logistics Tech Name Role Phone Piyush Pandey MD Unavailable Unavailabl e Megan Infante MD Primary Care Provider [phone] Sharmila [place] APRN, DIRECTOR OF SURGERY-C Unavailable Linda Block MD Unavailable [phone] Jeff Grace MD Unavailable Encounter Details Date Type Department Care Team (Late st Contact Info) Description 02/20/2019 Abstract [facility] [address] [place] [address] Abstract, Doc [facility] Social History Tobacco Use [...] st Contact Info) Description 09/25/2024 2:00 PM FILM INSPECTOR Appointment [facility] [address] [place] [address] Zayra Powell, COMMUNITY RECREATION PROGRAMMER [address] [place] [address] 10/16/2024 3:30 PM FILM INSPECTOR [facility] [address] [place] [address] Brit Gonzáles MD [address] [place] [address] documented as of this encounter Visit Diagnoses Not on filedocumented in this encounter Care Teams Logistics Tech Relationship Specialty Start Date End Date Megan Infante MD [address] [place] [address] PCP - General FAMILY PRACTICE 04/06/16 Piyush Pandey MD [place] [employer] Winder CARDIOVASCULAR DISEASE 04/06/16 12/28/23 Sharmila [place] APRN, DIRECTOR OF SURGERY-C [address] [facility] [address] [address] NURSE PRACTITIONER 01/04/17 04/03/24 Linda Block MD [address] [facility] [address] [address] [place] [employer] [place] CLINICAL CARDIAC ELECTROPHYSIOLOGY 02/08/17 04/12/23 Jeff Grace MD [address] [facility] [address] [place] [address] Consulting Physician INTERNAL MEDICINE 02/20/19 3 documented as of this encounter
--- OUTSIDE RECORDS SUMMARY | 2024-09-03 19:15 | XMS_ITS | Encounter Summary ---
Author Organization [facility] Address [facility]6 [facility] [place] [address] [place] [address] Care Team Providers Care Maintainer Operator Name Role Phone Piyush Pandey MD Unavailable Unavailabl Megan Leos MD Primary Care Provider [phone] Sharmila [place] APRN, FIRER KILN-C Unavailable [phone] Linda Block MD Unavailable [phone] Encounter Details Date Type Department Care Team (Late st Contact Info) Description 04/21/2018 Abstract [facility] [address] [place] [address] Abstract, Doc [facility] Social History Tobacco Use [...] st Contact Info) Description 09/25/2024 2:00 PM SOCIAL MEDIA COMMUNITY MANAGER Appointment [facility] [address] [place] [address] Zayra Powell, TAIL WORKER [address] [place] [address] 10/16/2024 3:30 PM SOCIAL MEDIA COMMUNITY MANAGER [facility] [address] [place] [address] Brit Gonzáles MD [address] [place] [address] documented as of this encounter Visit Diagnoses Not on filedocumented in this encounter Care Teams Maintainer Operator Relationship Specialty Start Date End Date Megan Infante MD [address] [place] [address] PCP - General FAMILY PRACTICE 04/06/16 Piyush Pandey MD [place] Sound Designer CARDIOVASCULAR DISEASE 04/06/16 12/28/23 Sharmila [place], HORTICULTURE WORKER, FIRER KILN-C [address] [facility] [address] [place] [address] NURSE PRACTITIONER 01/04/17 04/03/24 Linda Block MD [address] [facility] [address] [place] [address] [employer] Sound Designer CLINICAL CARDIAC ELECTROPHYSIOLOGY 02/08/17 04/12/23 documented as of this encounter
--- OUTSIDE RECORDS SUMMARY | 2024-09-03 19:15 | XMS_ITS | Encounter Summary ---
Author Organization [facility] Address [address] [place] [address]. [place] [address] [place] [address] Care Team Providers Care Seismic Interpreter Name Role Phone Piyush Pandey MD Unavailable Unavailabl e Megan Infante MD Primary Care Provider [phone] Sharmila Davis APRN, PROPERTY MAN-C Unavailable Linda Block MD Unavailable [phone] Jeff Grace MD Unavailable Encounter Details Date Type Department Care Team (Late st Contact Info) Description 02/24/2019 Abstract [facility] [address] [place] [address] Jeff Grace MD [address] [place] [address] Social History Tobacco Use Types Packs/Day Years [...] Info) Description 09/25/2024 2:00 PM SOCIAL MEDIA DIRECTOR Appointment [facility] [address] [place] [address] Andre Zayra K, OVERNIGHT CASHIER [address] [place] [address] 10/16/2024 3:30 PM SOCIAL MEDIA DIRECTOR Office Visit [facility] [address] [place] [address] Brit Gonzáles MD [address] [place] [address] documented as of this encounter Visit Diagnoses Not on filedocumented in this encounter Care Teams Seismic Interpreter Relationship Specialty Start Date End Date Megan Infante MD [address] [facility] [place] [phone] PCP - General FAMILY PRACTICE 04/06/16 Piyush Pandey MD [place] Heating Unit Installer CARDIOVASCULAR DISEASE 04/06/16 12/28/23 Sharmila Davis, DANNY, PROPERTY MAN-C [address] [facility] [address] [place] [address] NURSE PRACTITIONER 01/04/17 04/03/24 Linda Block MD [address] [facility] [address] [place] [address] [place] Heating Unit Installer CLINICAL CARDIAC ELECTROPHYSIOLOGY 02/08/17 04/12/23 Jeff Grace MD [address] [facility] [address] [address] Consulting Physician INTERNAL MEDICINE 02/20/19 6 3 documented as of this encounter
--- OUTSIDE RECORDS SUMMARY | 2024-09-03 19:15 | XMS_ITS | Encounter Summary ---
Author Organization [facility] Address [facility]6 [facility] [place] [address] [place] [address] Care Team Providers Care Radiological Engineer Name Role Phone Piyush Pandey MD Unavailable Unavailabl Megan Leos MD Primary Care Provider [phone] Sharmila Davis APRN, [place] MAN-C Unavailable Linda Block MD Unavailable [phone] Encounter Details Date Type Department Care Team (Latest Contact Info) Description 06/25/2016 Abstract [facility] Shubham Callahan MD [address] [place] [address] Social History Tobacco Use Types Packs/Day Years [...] st Contact Info) Description 09/25/2024 2:00 PM PAINTER Appointment [facility] [address] [place] [address] Zayra Powell, CEMETERY LABORER [address] [place] [address] 10/16/2024 3:30 PM PAINTER [facility] [address] [place] [address] Brit Gonzáles MD [address] [place] [address] documented as of this encounter Visit Diagnoses Not on filedocumented in this encounter Care Teams Radiological Engineer Relationship Specialty Start Date End Date Megan Infante MD [address] [place] [address] PCP - General FAMILY PRACTICE 04/06/16 Piyush Pandey MD [place] Medical Attendant CARDIOVASCULAR DISEASE 04/06/16 12/28/23 Sharmila Davis APRN, [place] MAN-C 6[address] [facility] [address] [place] [phone] NURSE PRACTITIONER 01/04/17 04/03/24 Linda Block MD 6[address] [facility] 47 [place] [address] [place] Medical Attendant CLINICAL CARDIAC ELECTROPHYSIOLOGY 02/08/17 04/12/23 documented as of this encounter
--- OUTSIDE RECORDS SUMMARY | 2024-09-03 19:15 | XMS_ITS | Encounter Summary ---
Author Organization [facility] Address [address] [place] [address]. [place] [address] [place] [address] Care Team Providers Care Chief Information Officer Name Role Phone Piyush Pandey MD Unavailable Unavailabl Megan Leos MD Primary Care Provider [phone] Sharmila Davis APRN, CONTINUOUS WELD PIPE MILL SUPERVISOR-C Unavailable Linda Block MD Unavailable [phone] Encounter Details Date Type Department Care Team (Late st Contact Info) Description 10/26/[address] [facility] [address] [place] [address] Kilo Navarro MD [address] [place] [address] Social History Tobacco Use Types [...] st Contact Info) Description 09/25/2024 2:00 PM RESOURCE RECOVERY ENGINEER Appointment [facility] [address] [place] [address] Zayra Powell, SMELTER CHARGER [address] [place] [address] 10/16/2024 3:30 PM RESOURCE RECOVERY ENGINEER Office Visit [facility] [place] [address] Brit Gonzáles MD [address] [place] [address] documented as of this encounter Procedures Procedure Name Priority Date/Time Associated Diagnosis Comments H PYLORI UREASE Routine 10/26/2017 8:31 AM RESOURCE RECOVERY ENGINEER GLUCOSE BLOOD, QNT Routine 10/26/2017 7: 51 AM RESOURCE RECOVERY ENGINEER documented in this encounter Results * H PYLORI UREASE (10/26/2017 8:31 AM RESOURCE RECOVERY ENGINEER) SPEC DESCRIPTION GASTRIC BIOPSY 10/26/2017 8:44 AM RESOURCE RECOVERY ENGINEER [facility] SPECIAL REQUESTS NO SPECIAL REQUEST 10/26/2017 8:44 AM RESOURCE RECOVERY ENGINEER [facility] DIRECT EXAM PRESUMPTIVE NEGATIVE FOR H. PYLORI 10/26/2017 12:49 PM RESOURCE RECOVERY ENGINEER [facility] GASTRIC BIOPSY SPECIMEN / Unknown 10/26/2017 8:31 AM RESOURCE RECOVERY ENGINEER 10/26/2017 8:48 AM RESOURCE RECOVERY ENGINEER us Generic Conversion Md [facility] - GENERAL ORDERABLES Final Result Performing Organization Address City/State/[facility] Co de Phone Number [facility] [place] [address], * (ABNORMAL) GLUCOSE BLOOD, QNT (10/26/2017 7:51 AM RESOURCE RECOVERY ENGINEER) GLUCOSE POC 222(H) 70 - 99 MG/DL 10/26/2017 7:54 AM RESOURCE RECOVERY ENGINEER [facility] ORDERS INTERFACE 10/26/2017 7:51 AM RESOURCE RECOVERY ENGINEER 10/26/2017 7:54 AM RESOURCE RECOVERY ENGINEER us Generic Conversion Md [facility] Final R esult [facility] ORDERS INTERFACE US documented in this encounter Visit Diagnoses Diagnosis Encounter for screening for malignant neoplasm of colon Special screening for malignant neoplasms, colon documented in this encounter Care Teams Chief Information Officer Relationship Specialty Start Date End Date Megan Infante MD [address] [facility] [place] [address] PCP - General FAMILY PRACTICE 04/06/16 Piyush Pandey MD [place] Beef Killer CARDIOVASCULAR DISEASE 04/06/16 12/28/23 Sharmila Davis, JIGGER MACHINE OPERATOR, CONTINUOUS WELD PIPE MILL SUPERVISOR-C [address] [facility] [address] [place] [address] NURSE PRACTITIONER 01/04/17 04/03/24 Linda Block MD [address] [facility] [address] [place] [address] [place] Be[employer] Killer CLINICAL CARDIAC ELECTROPHYSIOLOGY 02/08/17 04/12/23 documented as of this encounter
--- OUTSIDE RECORDS SUMMARY | 2024-09-03 19:15 | XMS_ITS | Encounter Summary ---
Author Organization [facility] Address [facility] [facility] [place] [address] [place] [address] Care Team Providers Care Drafter Seismograph Name Role Phone Piyush Pandey MD Unavailable Unavailabl Megan Leos MD Primary Care Provider [phone] Sharmila Davis APRN, GREENHOUSE SPECIALIST-C Unavailable [phone] Linda Block MD Unavailable [phone] Encounter Details Date Type Department Care Team (Late st Contact Info) Description 04/21/2018 Abstract [facility] [address] [place] [address] Abstract, Doc [facility] Social History Tobacco [...] st Contact Info) Description 09/25/2024 2:00 PM BRIMMER BLOCKER Appointment [facility] [address] [place] [address] Zarya Powell, NURSING AIDE [address] [place] [address] 10/16/2024 3:30 PM BRIMMER BLOCKER [facility] [address] [place] [address] Brit Gonzáles MD [address] [place] [address] documented as of this encounter Visit Diagnoses Not on filedocumented in this encounter Care Teams Drafter Seismograph Relationship Specialty Start Date End Date Megan Infante MD [address] [place] [address] PCP - General FAMILY PRACTICE 04/06/16 Piyush Pandey MD [place] Print Journalist CARDIOVASCULAR DISEASE 04/06/16 12/28/23 Sharmila Davis, POST OFFICE MANAGER, GREENHOUSE SPECIALIST-C [address] [facility] [address] [place] [address] NURSE PRACTITIONER 01/04/17 04/03/24 Linda Block MD [address] [facility] [address] [place] [address] [place] Print Journalist CLINICAL CARDIAC ELECTROPHYSIOLOGY 02/08/17 04/12/23 documented as of this encounter
--- OUTSIDE RECORDS SUMMARY | 2024-09-03 19:15 | XMS_ITS | Encounter Summary ---
Author Organization [facility] Address [facility] [place] [address] [place] [address] Care Team Providers Care Band Ripsaw Operator Name Role Phone Piyush Pandey MD Unavailable Unavailabl Megan Leos MD Primary Care Provider [phone] Sharmila Davis APRN MACHINE SCALLOP CUTTER-C Unavailable Linda Block MD Unavailable [phone] Reason for Visit * Reason Onset Date Comments Medication 03/04/2017 Encounter Details Date Type Department Care Team (Late st Contact Info) Description 03/04/2017 Telephone [facility] [address] [place] [address] Piyush Pandey MD Medication Social History Tobacco Use Types Packs/Day Years [...] encounter Progress Notes * Lavern Marley - 03/04/2017 8:59 AM CDT Pt called stating he has lost 9 lbs since increased dose of Lasix on Wednesday. Per Dr. Pandey, pt is to take 1 40 mg Lasix in the a.m. And 1 20 mg dose in the p.m. Pt to have a BMP and Magnesium level drawn today. Order will be faxed to [facility]. Pt notified by phone of meds and labs and v/u. documented in this encounter Plan of Treatment Upcoming Encounters Date Type Department Care Team (Late st Contact Info) Description 09/25/2024 2:00 PM DOCTOR PODIATRIC MEDICINE Appointment [facility] [address] [facility] [place] [address] Zayra Powell, OVERLOCK COLLAR SETTER [address] [facility] [place] [address] 10/16/2024 3:30 PM DOCTOR PODIATRIC MEDICINE Office Visit [facility] [address] [facility] [place] [address] Brit Gonzáles MD [address] [place] [address] documented as of this encounter Visit Diagnoses Not on filedocumented in this encounter Care Teams Band Ripsaw Operator Relationship Specialty Start Date End Date Megan Infante MD [address] [facility] [place] [address] PCP - General FAMILY PRACTICE 04/06/16 Piyush Pandey MD [place] Sap Data Analyst CARDIOVASCULAR DISEASE 04/06/16 12/28/23 Sharmila Davis APRN, MACHINE SCALLOP CUTTER-C 619 [facility] [address] [place] [address] NURSE PRACTITIONER 01/04/17 04/03/24 Linda Block MD 6[address] [facility] [address] [place] [address] [place] Sap Data Analyst CLINICAL CARDIAC ELECTROPHYSIOLOGY 02/08/17 04/12/23 documented as of this encounter
--- OUTSIDE RECORDS SUMMARY | 2024-09-03 19:15 | XMS_ITS | Encounter Summary ---
Author Organization [facility] Address [facility] [place] [address] [place] [address] Care Team Providers Care Insulation Board Coater Operator Name Role Phone Piyush Pandey MD Unavailable Unavailabl e Megan Infante MD Primary Care Provider [phone] Sharmila Davis APRN, NP-C Unavailable [phone] Linda Block MD Unavailable [phone] Reason for Referral * Imaging (Routine) - Closed Specialty Diagnoses / Procedures Referred By Yung sequeira Referred To Contact CARDIOLOGY Diagnoses Aortic stenosis Procedures USE ECHOCARDIOGRAM Piyush Pandey MD [facility] [address] Phone: tel: fax: Referral ID Status Reason Start Date Expiration Date Visits Re quested Visits Authorized [id number] Closed 05/04/2018 06/04/2019 1 1 Encounter Details Date Type Department Care Team (Late st Contact Info) Description 05/04/2018 [facility] [address] [place] [address] Piyush Pandey MD Social History [...] st Contact Info) Description 09/25/2024 2:00 PM LIVESTOCK TRADER Appointment [facility] [address] [place] [address] Zayra Powell, PILATES COORDINATOR [address] [place] [address] 10/16/2024 3:30 PM LIVESTOCK TRADER Office Visit [facility] [address] [place] [address] Brit Gonzáles MD [address] [place], [place] [phone] documented as of this encounter Results * USE ECHOCARDIOGRAM (05/09/2018) Anatomical Region Laterality Modality Cardiac Echocardiogram us Piyush Pandey MD ECHO Final Resul t documented in this encounter Visit Diagnoses Diagnosis Aortic stenosis- Primary Aortic valve disorders documented in this encounter Care Teams Insulation Board Coater Operator Relationship Specialty Start Date End Date Megan Infante MD [address] [place] [address] PCP - General FAMILY PRACTICE 04/06/16 Piyush Pandey MD [place] Bench Assembler Operator CARDIOVASCULAR DISEASE 04/06/16 12/28/23 Sharmila Davis, INTELLECTUAL PROPERTY MANAGER, DIALS INSPECTOR-C [address] [facility] [address] [place] [address] NURSE PRACTITIONER 01/04/17 04/03/24 Linda Block MD [address] [place] [address] [place] Bench Assembler Operator CLINICAL CARDIAC ELECTROPHYSIOLOGY 02/08/17 04/12/23 documented as of this encounter
--- OUTSIDE RECORDS SUMMARY | 2024-09-03 19:15 | XMS_ITS | Encounter Summary ---
Author Organization [facility] Address [facility] [place] [address] [place] [address] Care Team Providers Care Paint And Table Edger Name Role Phone Piyush Pandye MD Unavailable Unavailabl e Megan Infante MD Primary Care Provider [phone] Sharmila Davis APRN ENVIRONMENTAL HEALTH AND SAFETY MANAGER-C Unavailable Linda Block MD Unavailable [phone] Reason for Visit * Reason Onset Date Comments Appointment Request 12/20/2018 Encounter Details Date Type Department Care Team (Late st Contact Info) Description 12/20/2018 Telephone [facility] [address] [place] [address] Piyush Pandey MD Appointment Request [...] encounter Progress Notes * Lavern Marley - 12/20/2018 8:53 AM CDT Received call from Kasandra with [employer] called asking for an appt for pt due to sob and edema. Appt scheduled. documented in this encounter Plan of Treatment Upcoming Encounters Date Type Department Care Team (Late st Contact Info) Description 09/25/2024 2:00 PM CHIEF SECURITY AND SAFETY OFFICER Appointment [facility] [address] [place] [address] Zayra Powell, FIELD INVESTIGATOR [address] [place] [address] 10/16/2024 3:30 PM CHIEF SECURITY AND SAFETY OFFICER Office Visit [facility] [address] [place] [address] Brit Gonzáles MD [address] [place] [address] documented as of this encounter Visit Diagnoses Not on filedocumented in this encounter Care Teams Paint And Table Edger Relationship Specialty Start Date End Date Megan Infante MD [address] [facility] [place] [address] PCP - General FAMILY PRACTICE 04/06/16 Piyush Pandey MD [place] Manager Group CARDIOVASCULAR DISEASE 04/06/16 12/28/23 Sharmila Davis APRN, ENVIRONMENTAL HEALTH AND SAFETY MANAGER-C 6[address] [facility] [address] [place] [address] NURSE PRACTITIONER 01/04/17 04/03/24 Linda Block MD [address] [facility] [address] [place] [address] [place] Manager Group CLINICAL CARDIAC ELECTROPHYSIOLOGY 02/08/17 04/12/23 documented as of this encounter
--- OUTSIDE RECORDS SUMMARY | 2024-09-03 19:15 | XMS_ITS | Encounter Summary ---
Author Organization [facility] Address [address] [place] [address]. [place] [address] [place] [address] Care Team Providers Care Catalog Library Assistant Name Role Phone Piyush Pandey MD Unavailable Unavailabl Megan Leos MD Primary Care Provider [phone] Sharmila Davis APRN SEAT COVERER-C Unavailable Linda Block MD Unavailable [phone] Reason for Visit * Reason Comments Follow Up CHF Encounter Details Date Type Department Care Team (Late st Contact Info) Description 03/18/2017 3:00 PM CDT Office Visit [facility] AT [address] [address] Piyush Pandey MD Follow Up; CHF Social History Tobacco Use Types Packs/Day Years [...] Sign Reading Time Taken Comments Blood Pressure 110/78 03/19/2017 10:59 AM CDT Pulse 80 03/19/2017 10:59 AM CDT Temperature - - Respiratory Rate 16 03/19/2017 10:59 AM CDT Oxygen Saturation 98% 03/19/2017 10:59 AM CDT Inhaled Oxygen Concentration - - Weight 90.7 kg (200 lb) 03/19/2017 10:59 AM CDT Height 170.2 cm (5' 7 ) 03/19/2017 10:59 AM CDT Body Mass Index 31.32 03/19/2017 10:59 AM CDT documented in this encounter Patient Instructions * Patient Instructions* Hayley Gee, RN - 03/22/2017 11:52 AM CDT Images from the original note were not included. 1. Same meds 2. Start Lasix 40 mg BID 3. 203 lbs-80/40 X 1, 80/40 X1 call on day 3 ( dry weight 200 lbs ) Index Citizen Of [place] Related??topics Atrial Fibrillation DESOUZA POINTS ?? Atrial fibrillation is an irregular heartbeat that starts in the upper chambers of the heart andaffects the ability of the heart to pump blood to the rest of the body. ?? You may need treatment with medicine, electric cardioversion, or an ablation procedure. ?? Follow your healthcare provider???s advice about exercising, eating a healthy diet, watching your weight, not smoking, and checking your blood pressure. What is atrial fibrillation? Atrial fibrillation (also called A-fib) is an irregular heartbeat that starts in the upper chambersof the heart (atria). The abnormal heartbeat affects the ability of the heart to pump blood to the rest of the body. What is the cause? An electrical signal in your heart starts each heartbeat, causing the heart muscle to squeeze (contract). Normally, this signal starts in the upper right chamber of the heart (the right atrium) at a place called the sinus node. The signal then follows normal pathways to the upper left atrium and tothe lower chambers of the heart (the ventricles). When you have atrial fibrillation, electrical signals don???t start in the normal place in the right atrium and don???t travel normally. This can cause the upper chambers of the heart to beat very fast and not in a normal pattern. Common causes of heart rhythm problems are conditions that damage the heart, like coronary artery disease, heart attack, or heart failure. Problems with the heart valves are another common cause. The heart has 4 valves that open and closewith each heartbeat to help blood flow in the right direction through the heart. Other causes of atrial fibrillation include: ?? Health problems, such as a stroke, lung disease, diabetes, overactive thyroid gland, or high blood pressure ?? Abuse of alcohol or drugs, such as cocaine Sometimes no cause can be found. What are the symptoms? Some people don???t have any symptoms. When atrial fibrillation does cause symptoms, the most common ones are: ?? Feeling like your heart is beating too fast or too hard or skipping beats or fluttering ?? Feeling tired or weak all the time Symptoms that are more serious include: ?? Chest pain ?? Trouble breathing ?? Lightheadedness or dizziness ?? Confusion How is it diagnosed? Your healthcare provider will ask about your symptoms and medical history and examine you. Tests may include: ?? An ECG (also called an EKG), which measures and records your heartbeat. You may have an ECG while you are resting or while you exercise on a treadmill. You may also be asked to wear a small portable ECG monitor for a few days or sometimes a couple weeks. ?? Blood tests ?? An echocardiogram, which uses sound waves (ultrasound) to show the structures of the heart, likethe valves and to check for blood clots in the heart How is it treated? The goal of treatment is to lower the risk of blood clots forming in the heart that can cause a stroke or problems with other organs in the body. Another goal is help the heart keep a normal rhythm. Your treatment depends on the cause of the atrial fibrillation, how often you have symptoms, and theseverity of your symptoms. If you have no symptoms, or your symptoms are fairly mild, you may just need treatment to prevent blood clots. For some people atrial fibrillation lasts just a short time and the heart goes back to anormal rhythm on its own. If your healthcare provider finds a cause such as a thyroid problem or a heart valve problem, you may get treatment for those problems. Along with treatment to prevent blood clots, other possible treatments are: ?? Medicine: Your provider may prescribe medicine to slow or restore a normal heart rate and rhythm. ?? Electrical cardioversion: After receiving medicine to make you sleepy, an electrical shock applied to your chest should make your heart start beating normally again. You may need medicine to keep your heart rhythm normal after this procedure. ?? Ablation: Ablation is a procedure that uses a small tube called a catheter to deliver energy to the inside of the heart. The energy (usually radio waves) scars small areas of heart tissue. The scars block abnormal electrical pathways and help you have a normal heart rhythm. With some types of ablation treatment, you will also need a pacemaker. A pacemaker is an electronic device put under the skin of your chest to help control the heartbeat. How can I take care of myself? ?? Take your medicines as prescribed. ?? Keep your appointments for follow-up blood tests. ?? Make sure your healthcare provider knows about changes in your diet or medical condition. Your provider also needs to know about all prescription and nonprescription medicines, herbs, or supplements that you are taking. Some medicines may interact with your heart medicine or increase your risk for atrial fibrillation. ?? If you want to drink alcohol, ask your provider how much is safe for you to drink. ?? Follow your healthcare provider's instructions. Ask your provider: ?? How and when you will [...] all appointments for provider visits or tests. How can I help prevent atrial fibrillation? The best prevention is to have a heart-healthy lifestyle. ?? Keep a healthy weight. ?? Eat a healthy diet that is low in sodium and saturated and trans fat. ?? Stay fit with the right kind of exercise for you. ?? Decrease stress. ?? Don???t smoke. ?? Limit your use of alcohol. If you have heart disease or high blood pressure, follow your healthcare provider's instructions for treatment. Developed by [employer]. Adult Advisor 2017.1 published by [employer]. Last modified: 2016-06-15 Last reviewed: 2016-06-15 This content is reviewed periodically and is subject to change as new health information becomes available. The information is intended to inform and educate and is not a replacement for medical evaluation, advice, diagnosis or treatment by a healthcare professional. References Adult Advisor 2017.1 Index Copyright ?? 2017 [employer], a division of [employer]. All rights reserved. documented in this encounter Progress Notes * Piyush Pandey MD - 03/18/2017 3:00 PM CDT Reason for Visit: Follow Up and CHF History of Present Illness: Recommendations and Plan: Medications: Current Outpatient Prescriptions: ??? amlodipine 5 MG tablet, Take 5 mg by mouth daily., Disp: , Rfl: ??? furosemide 40 MG tablet, Take 1 tablet (40 mg total) by mouth 2 (two) times daily., Disp: 180 tablet, Rfl: 3 ??? labetalol 200 MG tablet, Take 200 mg by mouth 2 (two) times daily., Disp: , Rfl: ??? mometasone-formoterol 200-5 MCG/ACT Aerosol, Inhale into the lungs 2 (two) times daily., Disp: , Rfl: ??? acetaminophen (TYLENOL) [...] MG tablet, , Disp: , Rfl: ??? gabapentin 100 MG capsule, , Disp: , Rfl: ??? hydrocodone-acetaminophen 7.5-325 MG tablet, , Disp: , Rfl: ??? KLOR-CON M20 20 MEQ tablet, , Disp: , Rfl: ??? latanoprost [...] of breath and snoring. Cardiovascular: See HPI Gastrointestinal: Negative for blood in stool and melena. Genitourinary: Negative for dysuria. Musculoskeletal: Negative for myalgias and new or worsening joint stiffness/pain. Skin: Negative for rash. Neurological: Negative for tingling/numbness and focal weakness. Endo/Heme/Allergies: Negative for new or significant bruising/bleeding and polydipsia. Psychiatric/Behavioral: Negative for depression and new or significant memory loss. Filed Vitals: 03/19/17 1059 BP: 110/78 Pulse: 80 Resp: 16 SpO2: 98% Weight: 90.7 kg (200 lb) Height: 5' 7 (1.702 m) Physical Exam Constitutional: He is oriented to person, place, and time. He appears well- developed and well-nourished. No distress. HENT: Nose: No mucosal edema. Mouth/Throat: Oropharynx is clear and moist and mucous membranes are normal. No oropharyngeal exudate. Neck: Neck supple. No JVD present. Cardiovascular: Normal rate, S1 normal, S2 normal and intact distal pulses. PMI is not displaced. Exam reveals no gallop. Murmur (1/6 CALLIE) heard. Irregular rhythm. Pulmonary/Chest: Effort normal and breath sounds normal. No respiratory distress. Abdominal: Normal appearance. He exhibits no abdominal bruit and no mass. There is no hepatosplenomegaly. There is no tenderness. Musculoskeletal: Normal range of motion. He exhibits no deformity. Neurological: He is alert and oriented to person, place, and time. Skin: Skin is warm and dry. Psychiatric: He has a normal mood and affect. His behavior is normal. Thought content normal. Diagnoses/Impression: 1. A-fib ELECTROCARDIOGRAM (NON MIDMARK ACQUIRED) 2. S/P aortic valve replacement with bioprosthetic valve 3. LV dysfunction 4. Essential hypertension 5. Mixed hyperlipidemia 6. Diabetes mellitus, type II 7. Coronary artery disease involving [place] coronary artery of [place] heart without angina pectoris 8. Carotid disease, bilateral 9. Permanent atrial fibrillation 10. Nonrheumatic aortic valve stenosis 11. Chronic obstructive pulmonary disease, unspecified COPD type 12. Arthritis 13. Chronic anticoagulation [place] Documentation Completed: Coronary Artery Disease Referring Provider: No ref. provider found PCP: MEGAN INFANTE PULLER * Piyush Pandey MD - 03/18/2017 12:00 AM CDT HISTORY OF PRESENT ILLNESS: Mendez is seen in the [facility] today for a scheduled followup visit to discuss his ongoing symptomatology. Mendez is well known to me from previous evaluation and treatment and was last seen approximately [address] Linda Block and approximately 2 months ago by my nurse practitioner, Sharmila Davis. Mendez relates that he required an evaluation in the emergency room due to shortness of breath thought to be secondary to fluid retention. He was treated with intravenous Lasix and discharged on a diuretic regimen of 80 mg p.o. b.i.d. along with Potassium supplementation at 20 mEq p.o. b.i.d. for 1 week. This subsequently was reduced to Lasix 40 mg p.o. b.i.d. and the Potassium supplementation continued. Mendez feels that his dry weight is approximately 200 pounds and this has remained stable since his apparent trip to the emergency room. Mendez presently complains of some mild shortness of breath. He has been under an increased amount ofstress due to his suffering from Alzheimer disease. In looking back, he feels as though he gained approximately 9 pounds over a 3 day period with associated pedal edema before he went to the emergency room. Evaluation during the clinic visit today included an EKG, which confirmed the presence of probable atrial fibrillation with an incomplete left bundle branch block pattern and an associated ST and T-wave abnormality laterally. Laboratory performed 2 weeks ago showed a serum potassium of 4.2 with a BUN of 27 and creatinine 1.57. An echocardiogram today showed the tissue prosthesis in aortic position to be functioning well with a peak gradient of 45 mmHg and a mean gradient of 24 mmHg. There was mild left ventricular hypertrophy with adequate systolic function and a calculated LVEF of 54% associated with biatrial enlargement. Compared to the prior study in 2016, no significant change was felt to be present. Regadenoson nuclear stress test performed approximately 3 weeks ago showed no evidence of ongoing myocardial ischemia, although there did appear to be a fixed defect consistent with infarction or attenuation in the anterolateral wall. The left ventricular ejection fraction was calculated at 44%. RECOMMENDATIONS AND PLAN: Mendez's cardiac status appears clinically stable at the present time and he seems to have done well since his most recent trip to the emergency room. His echocardiogram and Regadenoson nuclear stress test results place him in a good prognostic group. Continued medical therapy and cardiac risk factor modification seem most appropriate at the present time. After a long discussion in the clinic with Mendez regarding his overall situation, I have recommendedthe followin. Continue Lasix at 40 mg p.o. b.i.d. with the associated Potassium supplementation. 2. I have given Mendez parameters regarding his weight and his Lasix dosing. Should his weight rise to 203 pounds, he is to increase his Lasix to 80 mg p.o. q.a.m. and 40 mg p.o. q.p.m. for 2 days. If his weight is not back to 200 pounds, I have asked him to contact my office after 3 days for recommendations concerning further adjustments in his medical regimen. 3. I will defer further evaluation and treatment of Mendez's atrial fibrillation to Dr. Block's expertise. I have encouraged Mendez to return to see Dr. Block on his regular outpatient followup schedule. 4. Annual followup in the cardiology clinic. I have encouraged Mendez to contact me in the meantime should he have any questions or problems. PULLER documented in this encounter Plan of Treatment Upcoming Encounters Date Type Department Care Team (Late st Contact Info) Description 09/25/2024 2:00 PM TREE PULLER Appointment [facility] [address] [place] [address] Zayra Powell, [facility] [address] [place] [address] 10/16/2024 3:30 PM TREE PULLER Office Visit [facility] [address] [place] [phone] Brit Gonzáles MD [address] [place] [address] documented as of this encounter Procedures Procedure Name Priority Date/Time Associated Diagnosis Comments ELECTROCARDIOGRAM (NON MIDMA RK ACQUIRED) Routine 03/18/2017 Chronic atrial fibrillation ([facility] [place]) documented in this encounter Results * ELECTROCARDIOGRAM (03/18/2017) Piyush Pandey MD PROCEDURES-ORDERABLE NO DEONTE RGE Final Result documented in this encounter Visit Diagnoses Diagnosis Chronic atrial fibrillation ([facility])- Primary Atrial fibrillation S/P aortic valve replacement with bioprosthetic valve Heart valve replaced by other means Coronary artery disease involving [place] coronary artery of [place] heart without angina pectoris LV dysfunction Heart disease, unspecified Essential hypertension Unspecified essential hypertension Mixed hyperlipidemia Carotid disease, bilateral ([facility]) Unspecified disorders of arteries and arterioles Chronic obstructive pulmonary disease, unspecified COPD type ([facility] [place]) Chronic anticoagulation Encounter for long-term (current) use of anticoagulants documented in this encounter Care Teams Catalog Library Assistant Relationship Specialty Start Date End Date Megan Infante MD [address] [place] [phone] PCP - General FAMILY PRACTICE 04/06/16 Piyush Pandey MD [place] [employer] Roller CARDIOVASCULAR DISEASE 04/06/16 12/28/23 Sharmila Davis, MUD JACK NOZZLE WORKER, SEAT COVERER-C [address] [facility] [address] [place] [phone] NURSE PRACTITIONER 01/04/17 04/03/24 Linda Block MD [address] [facility] [address] [place] [phone] [place] [employer] CLINICAL CARDIAC ELECTROPHYSIOLOGY 02/08/17 04/12/23 documented as of this encounter
--- OUTSIDE RECORDS SUMMARY | 2024-09-03 19:15 | XMS_ITS | Encounter Summary ---
Author Organization [facility] Address [facility] [facility] [place] [address] [place] [address] Care Team Providers Care E Commerce Strategist Name Role Phone Piyush Pandey MD Unavailable Unavailabl Megan Leos MD Primary Care Provider [phone] Sharmila Davis APRN, INSTRUMENT REPAIRER-C Unavailable [phone] Linda Block MD Unavailable [phone] Encounter Details Date Type Department Care Team (Late st Contact Info) Description 05/17/2016 Orders Only [place] [address] , Generic Conversion, Social History Tobacco Use [...] (Late Contact Info) Description 09/25/2024 2:00 [address]ER Appoint[address] [facility] [address] [place] [address] Zayra Powell, [employer] HAZMAT DRIVER [address] [place] [address] 10/16/2024 3:30 PM AUDIT OFFICER Office Visit [facility] [address] Brit Gonzáles MD [address] [place] [address] documented as of this encounter Procedures Procedure Name Priority Date/Time Associated Diagnosis Comments POCT GLUCOSE - VALLECILLO DOCKED DEVICE Routine 05/17/2016 8:39 AM CDT documented in this encounter Results * (ABNORMAL) POCT glucose (05/17/2016 8:39 AM CDT) GLUCOSE POC 159(H) 70 - 109 05/17/2016 9:37 AM CDT [facility] ORDERS INTERFACE WHOLE BLOOD SPECIMEN / Unknown 05/17/2016 8:39 AM CDT 05/17/2016 9:37 AM CDT us Generic Conversion Md LANDRY POCT ORDERABLES - DEVIC E Final Result [facility] ORDERS INTERFACE US documented in this encounter Visit Diagnoses Not on filedocumented in this encounter Care Teams E Commerce Strategist Relationship Specialty Start Date End Date Megan Infante MD [address] [place] [phone] PCP - General FAMILY PRACTICE 04/06/16 Piyush Pandey MD [place] Clinical Biostatistics Director CARDIOVASCULAR DISEASE 04/06/16 12/28/23 Sharmila Davis APRN, INSTRUMENT REPAIRER-C [address] [facility] [address] [place] [phone] NURSE PRACTITIONER 01/04/17 04/03/24 Linda Block MD [address] [facility] [address] [place] [phone] [place] Clinical Biostatistics Director CLINICAL CARDIAC ELECTROPHYSIOLOGY 02/08/17 04/12/23 documented as of this encounter
--- OUTSIDE RECORDS SUMMARY | 2024-09-03 19:15 | XMS_ITS | Encounter Summary ---
Author Organization [facility] Address [address] [place] [address]. [place] [address] [place] [address] Care Team Providers Care Handwriting Expert Name Role Phone Piyush Pandey MD Un[facility] Megan Leos MD Primary Care Provider [phone] Sharmila Davis APRN, IRRIGATING PUMP OPERATOR-C Unavailable Reason for Visit * Reason Onset Date Comments Results 01/27/2017 Encounter Details Date Type Department Care Team (Late st Contact Info) Description 01/27/2017 Telephone [facility] [place] [address] Piyush Pandey MD Results Social [...] Progress Notes * Hayley Gee RN - 01/27/2017 10:36 AM CDT Spoke with pt about stress test results and elevated b/p. RCW recommends increasing coreg 12.5 mg BID. escribed documented in this encounter Plan of Treatment Upcoming Encounters Date Type Department Care Team (Late st Contact Info) Description 09/25/2024 2:00 PM SFDC DEVELOPER Appointment [facility] [address] [place] [address] Zayra Powell, SUPERVISOR FUSING ROOM [address] [place], [place] [phone] 10/16/2024 3:30 PM SFDC DEVELOPER Office Visit [facility] [phone] [place] [address] Brit Gonzáles MD [address] [place], [place] [phone] documented as of this encounter Visit Diagnoses Not on filedocumented in this encounter Care Teams Handwriting Expert Relationship Specialty Start Date End Date Megan Infante MD [address] [place] [address] PCP - General FAMILY PRACTICE 04/06/16 Piyush Pandey MD [place] Disaster Recovery Manager CARDIOVASCULAR DISEASE 04/06/16 12/28/23 Sharmila Davis APRN, IRRIGATING PUMP OPERATOR-C [address] [facility] [address] [place] [address] NURSE PRACTITIONER 01/04/17 04/03/24 documented as of this encounter
--- OUTSIDE RECORDS SUMMARY | 2024-09-03 19:15 | XMS_ITS | Encounter Summary ---
Author Organization [facility] Address [facility] [facility] [place] [address] [place] [address] Care Team Providers Care Regional Director Of Admissions Name Role Phone Piyush Pandey MD Unavailable Unavailabl e Megan Infante MD Primary Care Provider [phone] Sharmila Davis APRN HAT BRIM [employer] CROWN LAMINATING OPERATOR-C Unavailable Linda Block MD Unavailable [phone] Reason for Referral * Imaging (Routine) - Closed Specialty Diagnoses / Procedures Referred By Yung sequeira Referred To Contact CARDIOLOGY Diagnoses Aortic valve disease Procedures USE ECHOCARDIOGRAM (48627) Piyush Pandey MD [facility] [address] [place] [address] Phone: tel: Referral ID Status Reason Start Date Expiration Date Visits Re quested Visits Authorized [id number] Closed 02/16/2017 03/19/2018 1 1 Encounter Details Date Type Department Care Team (Late st Contact Info) Description 02/16/2017 Orders Only [facility] [address] [place] [address] Piyush Pandey MD Social History [...] st Contact Info) Description 09/25/2024 2:00 PM SWEEPER OPERATOR HIGHWAYS Appointment [facility] [address] [place] [address] Zayra Powell, STATE WILDLIFE OFFICER [address] [place] [address] 10/16/2024 3:30 PM SWEEPER OPERATOR HIGHWAYS Office Visit [facility] [address] [place] [address] Brit Gonzáles MD [address] [place], [place] [phone] documented as of this encounter Procedures Procedure Name Priority Date/Time Associated Diagnosis Comments USE ECHOCARDIOGRAM Routine 02/18/2017 Aortic valve disease documented in this encounter Results * USE ECHOCARDIOGRAM (99424) (02/18/2017) Anatomical Region Laterality Modality Cardiac Echocardiogram us Piyush Pandey MD ECHO Final Resul t documented in this encounter Visit Diagnoses Diagnosis Aortic valve disease- Primary Aortic valve disorders documented in this encounter Care Teams Regional Director Of Admissions Relationship Specialty Start Date End Date Megan Infante MD [address] [place] [address] PCP - General FAMILY PRACTICE 04/06/16 Piyush Pandey MD [place] [employer] Department Supervisor CARDIOVASCULAR DISEASE 04/06/16 12/28/23 Sharmila Davis APRN, HAT BRIM AND CROWN LAMINATING OPERATOR-C [address] [facility] [address] [place] [address] NURSE PRACTITIONER 01/04/17 04/03/24 Linda Block MD [address] [facility] [address] [place] [phone] [place] Form[employer] Department Supervisor CLINICAL CARDIAC ELECTROPHYSIOLOGY 02/08/17 04/12/23 documented as of this encounter
--- OUTSIDE RECORDS SUMMARY | 2024-09-03 19:15 | XMS_ITS | Encounter Summary ---
Author Organization [facility] Address Critical access hospital6 [facility] [place] [address] [place] [address] Care Team Providers Care Assurance Manager Name Role Phone Piyush Pandey MD Unavailable Unavailabl Megan Leos MD Primary Care Provider [phone] Sharmila Davis APRN, NCA CERTIFIED CONCIERGE-C Unavailable Linda Block MD Unavailable [phone] Encounter Details Date Type Department Care Team (Latest Contact Info) Description 05/20/2016 Abstract [facility] Shubham Callahan MD [address] [place] [address] Social History Tobacco Use Types Packs/Day Years [...] Sign Reading Time Taken Comments Blood Pressure 116/56 05/20/2016 2:28 PM CDT Pulse 64 05/20/2016 2:28 PM CDT Temperature - - Respiratory Rate - - Oxygen Saturation - - Inhaled Oxygen Concentration - - Weight 93.7 kg (206 lb 9.6 oz) 05/20/2016 2:28 P M CDT Height 170.2 cm (5' 7 ) 05/20/2016 2:28 PM CDT Body Mass Index 32.36 05/20/2016 2:28 PM CDT documented in this encounter Progress Notes * Shubham Callahan MD - 05/20/2016 2:45 PM CDT Referring Provider Dr. Addis Pandey Assessment 1. COPD (chronic obstructive pulmonary disease) (496) (J44.9) 2. Shortness of breath (786.05) (R06.02) Plan COPD (chronic obstructive pulmonary disease) 1. ProAir HFA 108 (90 Base) MCG/ACT Inhalation Aerosol Solution; 2 puffs four times a day prn Rx By: Shubham Callahan; Dispense: 0 Days ; #:1 X 8.5 GM Inhaler; Refill: 12; For: COPD (chronic obstructive pulmonary disease); JESSICA = N; Verified Transmission to [facility] 213; Last Updated By: [employer] 05/20/2016 3:28:02 PM 2. 6 minute O2 Walk In Office; Status:Complete; Done: [id number] Perform:In Office; Due:30May2016; Last Updated By:Isak Velasco; 05/20/2016 3:17:11 PM;Ordered; For:COPD (chronic obstructive pulmonary disease); Ordered By:Shubham Callahan; 3. Xpays-5-Ldcwslavwjv; Status:Complete; Done: [id number] Perform:Other Lab; Due:19Jun2016; Last Updated By:Isak Velasco; 05/20/2016 3:17:11 PM;Ordered; For:COPD (chronic obstructive pulmonary disease); Ordered By:Shubham Callahan; 4. Oxygen; Status:Complete; Done: [id number] Perform:Not Applicable; Due:25May2016; Last Updated By:Isak Velasco; 05/20/2016 3:29:07 PM;Ordered; For:COPD (chronic obstructive pulmonary disease); Ordered By:Shubham Callahan; Unlinked 5. Dulera 200-5 MCG/ACT Inhalation Aerosol Dispense: 0 Days ; #:1 GM; Refill: 6; JESSICA = N; Record; Last Updated By: Shubham Callahan; 05/20/2016 3:26:47 PM Rule out hywfn-2-rhydshwftdv deficiency. Discontinue Dulera. Continue Incruse 1 daily. Trial of ProAir HFA 2 QID PRN. Discontinue supplemental oxygen. He says that polysomnography study has been ordered by Dr. Infante. See me in 2 months. Discussion/Summary I had a discussion with the patient about a couple of things. I think his recent illness can be explained by an exacerbation of diastolic heart failure. What is interesting is that his recent pulmonary function test suggest there is moderate chronic obstructive pulmonary disease. This condition had been looked for in the past with prior pulmonary function test and never identified. Somewhere between 2013 and 2015, it looks like he has developed some chronic airflow obstruction. Cause of this is not entirely clear. The patient has a minimal smoking history and therefore at first glance one would think he is at low risk for this. I told him we have to rule out ptphn-6-nerjokukaqu deficiency. Reason For Visit Consultation Follow-Up History of Present Illness HPI Free Text: The patient presents with a chief complaint of COPD. This is a former patient of mine, although I have not seen him in my practice since 2013. In the interim, he is continuing to have a lot of health problems. To further evaluate his condition, he had pulmonary function testing done on April 13, 2016 that showed moderate COPD. Following this, it looks like he was started on Dulera and Spiriva. Shortly after this, he developed an exacerbation of congestive heart failure. He was hospitalized at [facility]. The diagnosis was diastolic heart failure. At the present time, the patient, all considered, is pretty stable. He has not had any recurrence of this fluid accumulation. He denies peripheral edema. The patient does not have significant smoking history. He smoked socially for about 5 years and quit about 40 years ago, he estimates. Review of Systems Constitutional: fatigue Respiratory: dyspnea, but no wheezing not coughing up colored sputum Past Medical History 1. History of atrial fibrillation (V12.59) (Z86.79) 2. History of cardiac disorder (V12.50) (Z86.79) 3. History of congestive heart failure (V12.59) (Z86.79) 4. History of diabetes mellitus (V12.29) (Z86.39) 5. History of hypertension (V12.59) (Z86.79) Surgical History 1. History of Aortic Valve Replacement ?? 1999 2. History of Hip Replacement ?? Left, 2011 Family History 1. Family history of tuberculosis (V18.8) (Z83.1) Social History ?? Alcohol use ?? Socially ?? Former smoker (V15.82) (Z87.891) ?? Social smoker for less than 5 years. Quit in the 1970s. ? 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 Current Meds 1. Allopurinol 100 MG Oral Tablet; TAKE 1 TABLET DAILY; Therapy: (Recorded:14Feb2014) to Recorded 2. AmLODIPine Besylate 5 MG Oral Tablet; TAKE 1 TABLET DAILY; Therapy: (Recorded:14Feb2014) to Recorded 3. Coumadin 5 MG Oral Tablet; TAKE 1 TABLET DAILY; Therapy: (Recorded:14Feb2014) to Recorded 4. Dulera 200-5 MCG/ACT Inhalation Aerosol; INHALE 2 PUFFS, BY MOUTH, TWICE DAILY. RINSE MOUTH AFTER USE; Therapy: (Recorded:[id number]) to Recorded 5. Furosemide 40 MG Oral Tablet; TAKE 1 TABLET DAILY; Therapy: (Recorded:14Feb2014) to Recorded 6. GlipiZIDE 5 MG Oral Tablet; TAKE 1 PO q AM AND 2 PO q PM; Therapy: (Recorded:14Feb2014) to Recorded 7. Hydrocodone-Acetaminophen 5-325 MG Oral Tablet; TAKE 1 TABLET EVERY 4 TO 6 HOURS NEEDED; Therapy: (Recorded:14Feb2014) to Recorded 8. Incruse Ellipta 62.5 MCG/INH Inhalation Aerosol Powder Breath Activated; USE 1 INHALATION ONCE DAILY; Therapy: (Recorded:64Mpr4596) to Recorded 9. Lipitor 40 MG Oral Tablet; TAKE 1 TABLET DAILY; Therapy: (Recorded:14Feb2014) to Recorded 10. Lisinopril 40 MG Oral Tablet; TAKE 1 TABLET DAILY; Therapy: (Recorded:14Feb2014) to Recorded 11. MetFORMIN HCl - 500 MG Oral Tablet; TAKE 1 TABLET DAILY; Therapy: (Recorded:14Feb2014) to Recorded 12. PROzac 20 MG Oral Capsule; TAKE 2 CAPSULES DAILY; Therapy: (Recorded:14Feb2014) to Recorded 13. Toprol XL 100 MG Oral Tablet Extended Release 24 Hour; TAKE 2 TABLETS DAILY; Therapy: (Recorded:14Feb2014) to Recorded 14. TraZODone HCl - 100 MG Oral Tablet; TAKE 1 TABLET AT BEDTIME; Therapy: (Recorded:14Feb2014) to Recorded Allergies 1. No Known Drug Allergies Vitals Recorded: 20May2016 02:28PM Temperature 99.4 F Heart Rate 64 Respiration 22 Systolic 116 Diastolic 56 O2 Saturation 98, RA Height 5 ft 7 in Weight 206 lb 9.6 oz BMI Calculated 32.36 BSA Calculated 2.05 Immunizations Influenza --- Series1: May 2013; Series2: Apr 2016 Pneumococcal --- Series1: 2012 Physical Exam Constitutional: General appearance: Normal. Head and Face: Head and face: Normal. Eyes: Conjunctiva and lids: Normal. Ears, Nose, Mouth, and Throat: External inspection of ears and nose: Normal. Nasal mucosa, septum, and turbinates: Normal. Lips, teeth, and gums: Normal. Oropharynx: Normal. Neck: Neck Appearance: Normal. Cardiovascular Auscultation of heart: Abnormal. systolic murmur. Examination of extremities for edema: Normal. Pulmonary Chest: Normal. Respiratory effort: Normal. Auscultation of lungs: Normal. Abdomen Examination of Abdomen: Normal. Liver and spleen: Normal. Lymphatic Palpation of lymph nodes in neck: Normal. Skin Skin and subcutaneous tissue: Normal. Musculoskeletal Inspection/palpation of digits and nails: Normal without clubbing or cyanosis. Muscle strength/tone: Normal. Psychiatric Mood and affect: Normal. Neurological Orientation to person, place, and time: Normal. Recent and remote memory: Demonstrates normal memory. Results/Data Room air saturation 98%. He walked 400 feet. It was 97% at the end. Signatures Electronically signed by : Shubham Callahan M.D.; May 20 2016 5:13PM COMMUNITY ENGAGEMENT COORDINATOR (Author) documented in this encounter Plan of Treatment Upcoming Encounters Date Type Department Care Team (Late st Contact Info) Description 09/25/2024 2:00 PM COMMUNITY ENGAGEMENT COORDINATOR Appointment [facility] [address] [place] [address] Zayra Powell, [facility] [address] [place] [address] 10/16/2024 3:30 PM COMMUNITY ENGAGEMENT COORDINATOR Office Visit [facility] [address] [place] [phone] Brit Gonzáles MD [address] [place] [address] documented as of this encounter Visit Diagnoses Not on filedocumented in this encounter Care Teams Assurance Manager Relationship Specialty Start Date End Date Megan Infante MD [address] [place] [address] PCP - General FAMILY PRACTICE 04/06/16 Piyush Pandey MD [place] Benefits Consultant CARDIOVASCULAR DISEASE 04/06/16 12/28/23 Sharmila Davis APRN, NCA CERTIFIED CONCIERGE-C [address] [facility] [address] [place] [address] NURSE PRACTITIONER 01/04/17 04/03/24 Linda Block MD [address] [facility] [address] [place] [address] [place] Benefits Consultant CLINICAL CARDIAC ELECTROPHYSIOLOGY 02/08/17 04/12/23 documented as of this encounter
--- OUTSIDE RECORDS SUMMARY | 2024-09-03 19:15 | XMS_ITS | Encounter Summary ---
Author Organization [facility] Address [facility] [place] [address] [place] [address] Care Team Providers Care Oncology Rep Name Role Phone Piyush Pandey MD Unavailable Unavailabl Megan Leos MD Primary Care Provider [phone] Sharmila Davis APRN, NP-C Unavailable Linda Block MD Unavailable [phone] Jeff Grace MD Unavailable Reason for Visit * Reason Comments Follow Up Breathing Problem Encounter Details Date Type Department Care Team (Latest Contact Info) Description 12/22/2018 3:00 PM CDT Office Visit [facility] AT [address] [address] Piyush Pandey MD Follow Up; Breathing Problem Social History Tobacco Use Types Packs/Day [...] Sign Reading Time Taken Comments Blood Pressure 152/80 12/26/2018 11:24 AM CDT Pulse 69 12/26/2018 11:24 AM CDT Temperature - - Respiratory Rate 16 12/26/2018 11:24 AM CDT Oxygen Saturation 96% 12/26/2018 11:24 AM CDT Inhaled Oxygen Concentration - - Weight 103.4 kg (228 lb) 12/26/2018 11:24 AM CDT Height 167.6 cm (5' 6 ) 12/26/2018 11:24 AM CDT Body Mass Index 36.8 12/26/2018 11:24 AM CDT documented in this encounter Patient Instructions * Patient Instructions* Hayley Gee RN - 12/22/2018 3:00 PM CDT 1. Pt to call with med list documented in this encounter Progress Notes * Piyush Pandey MD - 12/22/2018 3:00 PM CDT Reason for Visit: Follow Up and Breathing Problem Medications: Current Outpatient Medications: ??? albuterol sulfate HFA (PROAIR HFA) 108 (90 BASE) MCG/ACT inhaler, ProAir HFA (albuterol sulfate) HFA aerosol inhaler 90 mcg/actuation; 2 puffs as needed for coughing or wheezing; 0; -Oct-2015; Active, Disp: , Rfl: ??? amlodipine 5 MG tablet, Take 10 mg by mouth daily. , Disp: , Rfl: ??? aspirin (ASPIRIN [...] (two) times daily., Disp: , Rfl: ??? potassium chloride 20 MEQ Tab CR, Take 2 tablets by mouth daily., Disp: , Rfl: ??? prazosin 2 MG capsule, TAKE 1 CAPSULE BY MOUTH AT BEDTIME, Disp: , Rfl: 0 ??? sertraline 50 MG tablet, 75 mg daily. , Disp: , Rfl: ??? [...] Atrial fibrillation (CMS/HCC) s/p PVI/[facility]ACA 10/2015 ??? Carotid disease, bilateral (CMS/HCC) ??? COPD (chronic obstructive pulmonary disease) [...] NEMO+CARDIOVERSION 03/24/2016 ??? XA A-FIB ABLATION 10/23/2015 I/WACA Social History Tobacco Use ??? Smoking status: Former Smoker ??? Smokeless tobacco: Former User Types: Chew Substance Use Topics ??? Alcohol use: Yes Comment: 6 per week ??? Drug use: No Family History Problem Relation Name Age of Onset ??? Heart Disease Neg Hx Family Status Relation Name Status ??? Neg Hx (Not Specified) Review of Systems Constitutional: Negative for recent unintentional weight gain, recent unintentional weight loss andnew or significant fatigue. HENT: Negative for new or significant hearing loss. Eyes: Negative for blurred vision and double vision. Respiratory: Positive for shortness of breath. Negative for cough and snoring. Cardiovascular: See HPI Gastrointestinal: Negative for blood in stool and melena. Genitourinary: Negative for dysuria. Musculoskeletal: Negative for myalgias and new or worsening joint stiffness/pain. Skin: Negative for rash. Neurological: Negative for tingling/numbness and focal weakness. Endo/Heme/Allergies: Negative for new or significant bruising/bleeding and polydipsia. Psychiatric/Behavioral: Negative for depression and new or significant memory loss. Filed Vitals: 05/06/19 1124 BP: 152/80 Pulse: 69 Resp: 16 SpO2: 96% Weight: 103.4 kg (228 lb) Height: 5' 6 (1.676 m) Body mass index is 36.8 kg/m??. Physical Exam Rate/Rhythm: regular rhythm and normal rate . Heart Sounds: normal heart sounds, normal S1 and normal S2 no gallop, no S3 sound, no S4 sound and no murmur. . PMI: PMI not displaced. Pulses: normal pulses Right Carotid pulses 2+, Left Carotid pulses 2+, Right Femoral pulses 2+, Left Femoral pulses 2+, Right DP pulses 2+, Left DP pulses 2+, negative for edema Constitutional: healthy appearance not distressed. . Neck: neck supple no JVD. . Pulmonary/Chest Wall: effort normal and breath sounds normal . HEENT: teeth/gums normal and oropharynx clear and moist. . Abdomen: distension, no tenderness, no mass, no hepatomegaly, no splenomegaly, abdominal aorta not palpably enlarged and no abdominal aortic bruit. . Eyes: conjunctivae normal. Neurological: alert, oriented x 3 and appropriate for situation, . Skin: dry and warm no cyanosis and no clubbing. Musculoskeletal: no kyphosis Cardiovascular Comments: The documentation for the above exam was created using a template entered by ancillary staff however the physical exam was completed entirely by the provider responsible for this visit. The physical exam documentation was reviewed and modified by the provider to reflect his/her findings. Diagnoses/Impression: 1. S/P aortic valve replacement with bioprosthetic valve 2. S/P ablation of atrial fibrillation 3. Permanent atrial fibrillation (CMS/HCC) 4. Nonrheumatic aortic valve stenosis 5. LV dysfunction 6. Mixed hyperlipidemia 7. Essential hypertension 8. Diabetes mellitus, type II (CMS/HCC) 9. Coronary artery disease involving rincon coronary artery of rincon heart without angina pectoris 10. Chronic obstructive pulmonary disease, unspecified COPD type (CMS/HCC) 11. Chronic anticoagulation 12. Bilateral carotid artery disease, unspecified type (CMS/HCC) 13. Arthritis Referring Provider: No ref. provider found PCP: MEAGN INFANTE MD * Piyush Pandey MD - 12/22/2018 12:00 AM CDT HISTORY OF PRESENT ILLNESS: Mr. Lay is seen in the [facility] today for a scheduled followup visit. Mr. Lay relates that he continues to have some ongoing difficulties with shortness of breath. Mr. Lay relates that he has had ongoing difficulties with shortness of breath without other associated cardiac symptomatology. He feels as though at least part of his shortness of breath is related to some weight gain as his weight is now up to 228 lbs. The shortness of breath had resolved when he weighed around 187 lbs. He attributes his weight gain to ongoing stress, which has caused him to drink 2-3 beers per day and more on the weekends. He has tried to decrease his sodium intake. He hashad some questionable paroxysmal nocturnal dyspnea and orthopnea as he is presently sleeping in a chair. Both of his lower extremities have been edematous and he has adjusted his Lasix dosing over the last week. A review of the available records show that an echocardiogram performed in April of 2018 was technically difficult, but did show a normally functioning bioprosthesis in the aortic position, unassociated with aortic regurgitation. There was mild left ventricular hypertrophy with an estimated left ventricular ejection fraction of 50-55% associated with biatrial enlargement. Laboratory at that time showed a BUN of 26 and creatinine 1.33. RECOMMENDATIONS AND PLAN: It appears that Mr. Lay's increased shortness of breath is related to some weight gain, but also to some fluid retention, which he has been prone to in the past. Unfortunately, he is somewhat unclear as to what his present medications are and in particular what diureticregimen he is taking. Further adjustments in his medical regimen would seem warranted in light of his present situation. Cardiac risk factor modification will be important in his long-term care. A reasonable goal would be to try to return to his ideal weight of 187 pounds. After a long discussion in the clinic, I have recommended the following to Mr. Lay: 1. Continue present medical regimen without alteration for now. I have asked Mr. Lay to find hislist of present medications and to call them to my office for review. Further adjustments in his medical regimen will be based on this review. 2. Return to the cardiology clinic for routine followup in 3 months. I have encouraged Mr. Lay to contact me in the meantime should he have any questions or problems. documented in this encounter Plan of Treatment Upcoming Encounters Date Type Department Care Team (Late st Contact Info) Description 09/25/2024 2:00 PM CONSTRUCTION REPRESENTATIVE Appointment [facility] [address] [place] [address] Zayra Powell, ASSISTANT RESEARCH SCIENTIST [address] [place], [place] [id number] 10/16/2024 3:30 PM CONSTRUCTION REPRESENTATIVE Office Visit [facility] [address] [place] [address] Brit Gonzáles MD [address] [place], [place] [address] documented as of this encounter Visit Diagnoses Diagnosis S/P aortic valve replacement with bioprosthetic valve- Primary Heart valve replaced by other means Permanent atrial fibrillation ([facility]/HCC HHS/HCC) Atrial fibrillation S/P ablation of atrial fibrillation Other postprocedural status Coronary artery disease involving rincon coronary artery of rincon heart without angina pectoris LV dysfunction Heart disease, unspecified Bilateral carotid artery disease, unspecified type (CMS/HCC) Essential hypertension Unspecified essential hypertension Mixed hyperlipidemia Chronic obstructive pulmonary disease, unspecified COPD type (CMS/HCC HHS/HCC) documented in this encounter Care Teams Oncology Rep Relationship Specialty Start Date End Date Megan Infante MD [address] [place] [address] PCP - General FAMILY PRACTICE 04/06/16 Piyush Pandey MD [place] Staff Research Scientist CARDIOVASCULAR DISEASE 04/06/16 12/28/23 Sharmila Davis APRN, CITY DISTRIBUTION CLERK-C [address] [place] [address] [address] [place] [address] NURSE PRACTITIONER 01/04/17 04/03/24 Linda Block MD [address] [place] [address] [place] Staff Research Scientist CLINICAL CARDIAC ELECTROPHYSIOLOGY 02/08/17 04/12/23 Jeff Grace MD [address] [place] [address] Consulting Physician INTERNAL MEDICINE 02/20/19 3 documented as of this encounter
--- OUTSIDE RECORDS SUMMARY | 2024-09-03 19:15 | XMS_ITS | Encounter Summary ---
Author Organization [facility] Address [facility] [place] [address] [place] [address] Care Team Providers Care Model Dresser Name Role Phone Piyush Pandey MD Unavailable Unavailabl e Megan Infante MD Primary Care Provider [phone] Sharmila Davis APRN PRODUCE PRODUCTION TEAM MEMBER-C Unavailable Linda Block MD Unavailable [phone] Reason for Visit * Reason Onset Date Comments Results 02/19/2017 Encounter Details Date Type Department Care Team (Late st Contact Info) Description 02/19/2017 Telephone [employer] [place] [address] [place] [address] Piyush Pandey MD Results Social [...] Progress Notes * Hayley Gee RN - 02/19/2017 12:40 PM CDT Spoke with pt about unchanged echo results, RCW recommends coming to clinic to discuss symptoms, hewould prefer to be seen in [place] on 03/18 , reminder sent * Lavern Marley - 02/19/2017 11:01 AM CDT Pt called asking for results of recent echo. Pt can be reached at [phone] or [phone]. documented in this encounter Plan of Treatment Upcoming Encounters Date Type Department Care Team (Late st Contact Info) Description 09/25/2024 2:00 PM PORT CRANE OPERATOR Appointment [facility] [address] [place] [address] Zayra Powell, LINE RIDER [address] [place] [address] 10/16/2024 3:30 PM PORT CRANE OPERATOR Office Visit [facility] [address] [place] [phone] Brit Gonzáles MD [address] [place] [address] documented as of this encounter Visit Diagnoses Not on filedocumented in this encounter Care Teams Model Dresser Relationship Specialty Start Date End Date Megan Infante MD [address] [facility] [address] [place] [phone] PCP - General FAMILY PRACTICE 04/06/16 Piyush Pandey MD [place] CARDIOVASCULAR DISEASE 04/06/16 12/28/23 Sharmila Davis APRN, PRODUCE PRODUCTION TEAM MEMBER-C [address] [facility] [address] [place] [phone] NURSE PRACTITIONER 01/04/17 04/03/24 Linda Block MD [address] [place] [address] [place] [address] [place] CLINICAL CARDIAC ELECTROPHYSIOLOGY 02/08/17 04/12/23 documented as of this encounter
--- OUTSIDE RECORDS SUMMARY | 2024-09-03 19:15 | XMS_ITS | Encounter Summary ---
Author Organization [facility] Address [facility]6 [facility] [place] [address] [place] [address] Care Team Providers Care Flight Control Tower Operator Name Role Phone Piyush Pandey MD Unavailable Unavailabl e Megan Infante MD Primary Care Provider [phone] Sharmila Davis APRN COMMERCIAL SALES MANAGER-C Unavailable Linda Block MD Unavailable [phone] Jeff Grace MD Unavailable Encounter Details Date Type Department Care Team (Late st Contact Info) Description 05/02/2019 Orders Only [facility] AT [facility] [address] [place] [phone] Piyush Pandey MD Social History Tobacco Use [...] st Contact Info) Description 09/25/2024 2:00 PM CARDIOVASCULAR SONOGRAPHER Appointment [facility] [address] [place] [address] Zayra Powell, THERAPEUTIC RECREATION SPECIALIST [address] [place] [address] 10/16/2024 3:30 PM CARDIOVASCULAR SONOGRAPHER Office Visit [facility] [address] [place] [address] Brit Gonzáles MD [address] [place] [address] documented as of this encounter Visit Diagnoses Diagnosis Coronary artery disease involving [place] coronary artery of [place] heart without angina pectoris- Primary S/P aortic valve replacement with bioprosthetic valve Heart valve replaced by other means documented in this encounter Care Teams Flight Control Tower Operator Relationship Specialty Start Date End Date Megan Infante MD [address] [place] [address] PCP - General FAMILY PRACTICE 04/06/16 Piyush Pandey MD [place] Clear Coat Sprayer CARDIOVASCULAR DISEASE 04/06/16 12/28/23 Sharmila Davis, CASTING FINISHER, COMMERCIAL SALES MANAGER-C [address] [facility] [address] [place] [address] NURSE PRACTITIONER 01/04/17 04/03/24 Linda Block MD 619 [facility] [address] [place] [address] [place] Clear Coat Sprayer CLINICAL CARDIAC ELECTROPHYSIOLOGY 02/08/17 04/12/23 Jeff Grace MD [address] [facility] [address] [place] [address] Consulting Physician INTERNAL MEDICINE 02/20/19 6 3 documented as of this encounter
--- OUTSIDE RECORDS SUMMARY | 2024-09-03 19:15 | XMS_ITS | Encounter Summary ---
Author Organization [facility] Address [facility]6 [facility] [place] [address] [place] [address] Care Team Providers Care Residential Sales Associate Name Role Phone Piyush Pandey MD Unavailable Unavailabl e Megan Infante MD Primary Care Provider [phone] Sharmila Davis APRN LEAD NURSE-C Unavailable Linda Block MD Unavailable [phone] Jeff Grace MD Unavailable Zaki Ortiz MD Unavailable [phone] Concetta Acevedo MD Unavailable [phone] Jeff Grace MD Unavailable Brit Gonzáles MD Unavailable Encounter Details Date Type Department Care Team (Late st Contact Info) Description 03/29/2017 Abstract [facility] [address] [place] [address] Piyush Pandey MD Social History Tobacco Use [...] Info) Description 09/25/2024 2:00 PM DIRECTOR OF PERSONNEL Appointment [facility] [address] [place], [place] [phone] Zayra Powell, DENTAL TECHNICIAN APPRENTICE [address] [place] [address] 10/16/2024 3:30 PM DIRECTOR OF PERSONNEL Office Visit [facility] [address] [place] [address] Brit Gonzáles MD [address] [place] [address] documented as of this encounter Visit Diagnoses Not on filedocumented in this encounter Additional Health Concerns Infection Onset Date Last Indicated Resolved Time COVID-19 Rule Out 03/02/2020 03/02/2020 03/03/2020 8:23 PM CDT COVID-19 Rule Out 07/03/2020 07/03/2020 07/04/2020 11:25 PM DIRECTOR OF PERSONNEL COVID-19 Rule Out 09/07/2020 09/07/2020 09/08/2020 5:52 PM DIRECTOR OF PERSONNEL COVID-19 Rule Out 10/05/2020 10/05/2020 10/06/2020 11:37 AM DIRECTOR OF PERSONNEL COVID-19 Rule Out 02/08/2021 02/08/2021 02/08/2021 9:06 PM CDT COVID-19 Rule Out 01/24/2022 01/24/2022 01/24/2022 6:41 PM CDT COVID-19 Rule Out 01/04/2023 01/04/2023 01/04/2023 10:12 AM CDT documented as of this encounter Care Teams Residential Sales Associate Relationship Specialty Start Date End Date Megan Infante MD [address] [place] [address] PCP - General FAMILY PRACTICE 04/06/16 Piyush Pandey MD [place] Alodize Machine Operator CARDIOVASCULAR DISEASE 04/06/16 12/28/23 Sharmila Davis, DANNY, LEAD NURSE-C [address] [phone] NURSE PRACTITIONER 01/04/17 04/03/24 Linda Block MD [address] [place] [phone] [place] Alodize Machine Operator CLINICAL CARDIAC ELECTROPHYSIOLOGY 02/08/17 04/12/23 Jeff Grace MD [address] [phone] Consulting Physician INTERNAL MEDICINE 02/20/19 3 Zaki Ortiz MD [address] [place] [phone] Consulting Physician PULMONARY DISEASE 07/12/19 Concetta Acevedo MD [address] [place] [address] Surgeon NEUROLOGICAL SURGERY 12/16/22 Jeff Grace MD 9 [place], [place] [address] Consulting Physician INTERNAL MEDICINE 02/11/23 Brit Gonzáles MD [address] [place], [place] [address] Consulting Physician CARDIOVASCULAR DISEASE 12/29/23 documented as of this encounter
--- OUTSIDE RECORDS SUMMARY | 2024-09-03 19:15 | XMS_ITS | Encounter Summary ---
Author Organization [facility] Address [facility]6 [facility] [place] [address] [place] [address] Care Team Providers Care Head Housekeeper Name Role Phone Piyush Pandey MD Unavailable Unavailabl Megan Leos MD Primary Care Provider [phone] Sharmila Davis APRN GUITAR MAKER HAND-C Unavailable [phone] Linda Block MD Unavailable [phone] Reason for Visit * Reason Onset Date Comments Medication 12/23/2018 Encounter Details Date Type Department Care Team (Late st Contact Info) Description 12/23/2018 Telephone [facility] [address] [place] [address] Piyush Pandey MD Medication Social [...] Progress Notes * Hayley Gee RN - 12/23/2018 9:49 AM CDT recorded * Deloris Davison - 12/23/2018 9:42 AM CDT Patient called to report he is taking spironolactone 25mg 1 tab every morning. documented in this encounter Plan of Treatment Upcoming Encounters Date Type Department Care Team (Late st Contact Info) Description 09/25/2024 2:00 PM MINING SUPPORT WORKER Appointment [facility] [address] [place] [address] Zayra Powell, CARD ASSEMBLER [address] [place] [address] 10/16/2024 3:30 PM MINING SUPPORT WORKER Office Visit [facility] [address] [facility] [place] [address] Brit Gonzáles MD [address] [place] [address] documented as of this encounter Visit Diagnoses Not on filedocumented in this encounter Care Teams Head Housekeeper Relationship Specialty Start Date End Date Megan Infante MD [address] [facility] [place] [address] PCP - General FAMILY PRACTICE 04/06/16 Piyush Pandey MD [place] Respiratory Care Specialist CARDIOVASCULAR DISEASE 04/06/16 12/28/23 Sharmila Davis APRN, GUITAR MAKER HAND-C [address] [facility] [address] [place] [phone] NURSE PRACTITIONER 01/04/17 04/03/24 Linda Block MD [address] [facility] [address] [place] [address] [place] Respiratory Care Specialist CLINICAL CARDIAC ELECTROPHYSIOLOGY 02/08/17 04/12/23 documented as of this encounter
--- OUTSIDE RECORDS SUMMARY | 2024-09-03 19:15 | XMS_ITS | Encounter Summary ---
Author Organization [facility] Address [facility]6 [facility] [place] [address] [place] [address] Care Team Providers Care Associate Entertainment Editor Name Role Phone Piyush Pandey MD Unavailable Unavailabl e Megan Infante MD Primary Care Provider [phone] Sharmila Davis APRN HEAD BANDER AND LINER OPERATOR-C Unavailable Linda Block MD Unavailable [phone] Jeff Grace MD Unavailable Zaki Ortiz MD Unavailable [phone] Concetta Acevedo MD Unavailable [phone] Jeff Grace MD Unavailable Brit Gonzáles MD Unavailable Encounter Details Date Type Department Care Team (Late Contact Info) Description 01/28/2019 Abstract [facility] [address] [place] [address] , Generic Conversion, Social History Tobacco Use [...] st Contact Info) Description 09/25/2024 2:00 PM B2B SALES PROFESSIONAL Appointment [facility] [address] [place] [address] Zayra Powell, CARTON MACHINE OPERATOR [address] [place] [address] 10/16/2024 3:30 PM B2B SALES PROFESSIONAL Office Visit [facility] [address] [place] [address] Brit Gonzáles MD [address] [place] [address] documented as of this encounter Visit Diagnoses Not on filedocumented in this encounter Additional Health Concerns Infection Onset Date Last Indicated Resolved Time COVID-19 Rule Out 03/02/2020 03/02/2020 03/03/2020 8:23 PM CDT COVID-19 Rule Out 07/03/2020 07/03/2020 07/04/2020 11:25 PM B2B SALES PROFESSIONAL COVID-19 Rule Out 09/07/2020 09/07/2020 09/08/2020 5:52 PM B2B SALES PROFESSIONAL COVID-19 Rule Out 10/05/2020 10/05/2020 10/06/2020 11:37 AM B2B SALES PROFESSIONAL COVID-19 Rule Out 02/08/2021 02/08/2021 02/08/2021 9:06 PM CDT COVID-19 Rule Out 01/24/2022 01/24/2022 01/24/2022 6:41 PM CDT COVID-19 Rule Out 01/04/2023 01/04/2023 01/04/2023 10:12 AM CDT documented as of this encounter Care Teams Associate Entertainment Editor Relationship Specialty Start Date End Date Megan Infante MD [address] [place] [phone] PCP - General FAMILY PRACTICE 04/06/16 Piyush Pandey MD [place] Soft Water Mechanic CARDIOVASCULAR DISEASE 04/06/16 12/28/23 Sharmila Davis APRN, HEAD BANDER AND LINER OPERATOR-C [address] [phone] NURSE PRACTITIONER 01/04/17 04/03/24 Linda Block MD [address] [phone] [place] Soft Water Mechanic CLINICAL CARDIAC ELECTROPHYSIOLOGY 02/08/17 04/12/23 Jeff Grace MD [address] [place] [phone] Consulting Physician INTERNAL MEDICINE 02/20/19 3 Zaki Ortiz MD [address] [place] [phone] Consulting Physician PULMONARY DISEASE 07/12/19 Concetta Acevedo MD [address] [place] [address] Surgeon NEUROLOGICAL SURGERY 12/16/22 Jeff Grace MD [address] [place] [address] Consulting Physician INTERNAL MEDICINE 02/11/23 Brit Gonzáles MD [address]19 [place], [place] [address] Consulting Physician CARDIOVASCULAR DISEASE 12/29/23 documented as of this encounter
--- OUTSIDE RECORDS SUMMARY | 2024-09-03 19:15 | XMS_ITS | Encounter Summary ---
Author Organization [facility] Address [facility]6 [place] [address] [place] [address] Care Team Providers Care Outbound Sales Representative Name Role Phone Piyush Pandey MD Unavailable Unavailabl e Megan Infante MD Primary Care Provider [phone] Sharmila Davis APRN LOCAL COMPANY TRUCK DRIVER-C Unavailable Linda Block MD Unavailable [phone] Jeff Grace MD Unavailable Reason for Visit * Reason Onset Date Comments Breathing Problem 05/02/2019 Encounter Details Date Type Department Care Team (Late st Contact Info) Description 05/02/2019 Telephone [facility] [address] [place] [address] Piyush Pandey MD Breathing Problem Social History Tobacco Use Types [...] of this encounter Progress Notes * Hayley Gee, YUNI - 05/02/2019 2:36 PM CDT pcp called about pt's increasing SOB, possibly increasing CHF/ COPD he has not seen DR Callahan in quite some time and it's been 2 yrs since he saw EP ( Mckayla). He is also due for echocardiogram. Spoke with pt and he is able to come to [facility] on Wednesday, will get echo and clinic with Sharmila at 1100. * Lavern Nuñez Ayaka - 05/02/2019 12:25 PM CDT Pt called stating he is having issues with shortness of breath. Has an appt on 06/01/19. He can be reached at [phone]. documented in this encounter Plan of Treatment Upcoming Encounters Date Type Department Care Team (Late st Contact Info) Description 09/25/2024 2:00 PM FIELD CARE MANAGER Appointment [facility] [address] [facility] [place] [address] Zayra Powell, ARMORED TRANSPORT SERVICE MANAGER [address] [place] [address] 10/16/2024 3:30 PM FIELD CARE MANAGER Office [facility] [address] [place], [place] [address] [address] Brit Gonzáles MD [address] [place] [address] documented as of this encounter Visit Diagnoses Not on filedocumented in this encounter Care Teams Outbound Sales Representative Relationship Specialty Start Date End Date Megan Infante MD [address] [facility] [place] [address] PCP - General FAMILY PRACTICE 04/06/16 Piyush Pandey MD [place] Insurance Advisor CARDIOVASCULAR DISEASE 04/06/16 12/28/23 Sharmila Davis, IRONMOLDER, LOCAL COMPANY TRUCK DRIVER-C [address] [place] [address] [place] [phone] NURSE PRACTITIONER 01/04/17 04/03/24 Linda Block MD [address] [facility] [address] [place] [address] [phone] [place] Insurance Advisor CLINICAL CARDIAC ELECTROPHYSIOLOGY 02/08/17 04/12/23 Jeff Grace MD [address] [facility] [address] [place] [address] Consulting Physician INTERNAL MEDICINE 02/20/19 3 documented as of this encounter
--- OUTSIDE RECORDS SUMMARY | 2024-09-03 19:15 | XMS_ITS | Encounter Summary ---
Author Organization [facility] Address Count includes the [facility]6 [facility] [place] [address] [place] [address] Care Team Providers Care Executive Vice President Of Sales Name Role Phone Piyush Pandey MD Unavailable Unavailabl Megan Leos MD Primary Care Provider [phone] Sharmila Davis APRN, SHOE TREER-C Unavailable Linda Block MD Unavailable [phone] Encounter Details Date Type Department Care Team (Late st Contact Info) Description 07/21/2016 Abstract [facility] [place] [address] [place] [address] Shubham Callahan MD [address] [place], [place] [address] Social History Tobacco Use Types Packs/Day Years [...] st Contact Info) Description 09/25/2024 2:00 PM PLANT TAXONOMY TEACHER Appointment [facility] [address] [place] [address] Zayra Powell, ENGINEER OPERATIONS AND MAINTENANCE [address] [place] [address] 10/16/2024 3:30 PM PLANT TAXONOMY TEACHER Office Visit [facility] [address] [place] [address] Brit Gonzáles MD [address]19 [place] [address] documented as of this encounter Visit Diagnoses Not on filedocumented in this encounter Care Teams Executive Vice President Of Sales Relationship Specialty Start Date End Date Megan Infante MD [address] [place] [address] PCP - General FAMILY PRACTICE 04/06/16 Piyush Pandey MD [place] Grief Counselor CARDIOVASCULAR DISEASE 04/06/16 12/28/23 Sharmila Davis APRN, SHOE TREER-C 619 [facility] [address] [place] [address] NURSE PRACTITIONER 01/04/17 04/03/24 Linda Block MD [address] [facility] [address] [place] [address] [place] Grief Counselor CLINICAL CARDIAC ELECTROPHYSIOLOGY 02/08/17 04/12/23 documented as of this encounter
--- OUTSIDE RECORDS SUMMARY | 2024-09-03 19:15 | XMS_ITS | Encounter Summary ---
Author Organization [facility] Address [facility]6 [facility] [place] [address] [place] [address] Care Team Providers Care Seam Steamer Name Role Phone Piyush Pandey MD Unavailable Unavailabl Megan Leos MD Primary Care Provider [phone] Sharmial Davis APRN, HAND RIVETER-C Unavailable Linda Block MD Unavailable [phone] Encounter Details Date Type Department Care Team (Late st Contact Info) Description 03/04/2017 Orders Only [facility] AT [facility] [address] [place] [address] Piyush Pandey MD Social History [...] st Contact Info) Description 09/25/2024 2:00 PM RUG CLEANING SUPERVISOR Appointment [facility] [address] [place] [address] Zayra Powell, CHILD SUPPORT SPECIALIST [address] [place] [address] 10/16/2024 3:30 PM RUG CLEANING SUPERVISOR Office Visit [facility] [address] [place] [address] Brit Gonzáles MD [address]19 [place] [address] documented as of this encounter Procedures Procedure Name Priority Date/Time Associated Diagnosis Comments MAGNESIUM Routine 03/25/2017 LV dysfunction Essential hypertension Coronary artery disease involving [place] coronary artery of [place] heart without angina pectoris Permanent atrial fibrillation ([facility] HHS/HCC) CMP (ABSTRACTED LAB) Routine 03/04/2017 BASIC METABOLIC PANEL Routine 03/04/2017 LV dysfunction Essential hypertension Coronary artery disease involving [place] coronary artery of [place] heart without angina pectoris Permanent atrial fibrillation ([facility] HHS/HCC) documented in this encounter Results * (ABNORMAL) MAGNESIUM (03/25/2017) MAGNESIUM 2.1 SODIUM S/P/B 134 POTASSIUM S/P/B 4.8 CHLORIDE S/P/B 98 CO2 31 GLUCOSE 282 BUN 39 CREATININE S/P/B 1.6(A) 0.7 - 1.3 CHOLESTEROL 207 TRIGLYCERIDES 114 HDL 97 LDL (CALCULATED) 87 CHOL/HDL RATIO 2.1 03/25/2017 us Piyush Pandey MD LABORATORY Final Resul t * (ABNORMAL) CMP (ABSTRACTED LAB) (03/04/2017) SODIUM S/P/B 136 POTASSIUM S/P/B 4.2 CHLORIDE S/P/B 96(A) >=98 CO2 32 BUN 27(A) <=18 CREATININE S/P/B 1.57(A) 0.7 - 1.3 EGFR NON-AFR. AMER. 48 <=90 CALCIUM S/P/B 9.1 GLUCOSE 483(A) <=99 TOTAL PROTEIN S/P/B 7.2 ALBUMIN S/P/B 3.6 3.5 - 5.0 AST 20 ALT 43 ALKALINE PHOSPHATASE S/P/B 122(A) <=116 BILIRUBIN TOTAL S/P/B 1.00 AMYLASE S/P/B 37 25 - 115 LIPASE 375 73 - 393 03/04/2017 us Doc [facility] Abstract LAB-OUTSIDE/ABSTRACTED Final Result * (ABNORMAL) BASIC METABOLIC PANEL (03/04/2017) SODIUM S/P/B 136 POTASSIUM S/P/B 4.2 CO2 32 CHLORIDE S/P/B 96(A) >=98 GLUCOSE 483(A) <=99 Comment:Critical high CALCIUM S/P/B 9.1 BUN 27(A) <=18 CREATININE S/P/B 1.57(A) 0.7 - 1.3 EGFR NON-AFR. AMER. 48 <=90 03/04/2017 us Piyush Pandey MD LABORATORY Final Resul t documented in this encounter Visit Diagnoses Diagnosis LV dysfunction- Primary Heart disease, unspecified Essential hypertension Unspecified essential hypertension Coronary artery disease involving [place] coronary artery of [place] heart without angina pectoris Permanent atrial fibrillation ([facility]) Atrial fibrillation documented in this encounter Care Teams Seam Steamer Relationship Specialty Start Date End Date Megan Infante MD [address] [facility] [place] [phone] PCP - General FAMILY PRACTICE 04/06/16 Piyush Pandey MD [place] Carbider CARDIOVASCULAR DISEASE 04/06/16 12/28/23 Sharmila Davis APRN, HAND RIVETER-C [address] [facility] [address] [place] [address] NURSE PRACTITIONER 01/04/17 04/03/24 Linda Block MD [address] [facility] [address] [place] [address] [employer] Carbider CLINICAL CARDIAC ELECTROPHYSIOLOGY 02/08/17 04/12/23 documented as of this encounter
--- OUTSIDE RECORDS SUMMARY | 2024-09-03 19:15 | XMS_ITS | Encounter Summary ---
Author Organization [facility] Address [address] [place] [address]. [place] [address] [place] [address] Care Team Providers Care Jewelry Coater Name Role Phone Piyush Pandey MD Unavailable Unavailabl e Megan Infante MD Primary Care Provider [phone] Sharmila Davis APRN SCENE PAINTER-C Unavailable [phone] Linda Block MD Unavailable [phone] Encounter Details Date Type Department Care Team (Late st Contact Info) Description 09/30/2016 Abstract [facility] [address] [place] [address] Megan Infante MD [address] [place] [address] Social History Tobacco Use Types Packs/Day [...] (Late Contact Info) Description 09/25/2024 2:00 PM BAIL AGENT Appointment [facility] [address] [place] [address] Zayra Powell, GLOBAL CHIEF EXPERIENCE OFFICER [address] [place] [address] 10/16/2024 3:30 PM BAIL AGENT [facility] [address] [place] [address] Brit Gonzáles MD [address] [place] [address] documented as of this encounter Visit Diagnoses Diagnosis Pain of right hand Pain in limb documented in this encounter Care Teams Jewelry Coater Relationship Specialty Start Date End Date Megan Infante MD [address] [place] [address] PCP - General FAMILY PRACTICE 04/06/16 Piyush Pandey MD [place] Attendant Child Activity CARDIOVASCULAR DISEASE 04/06/16 12/28/23 Sharmila Davis APRN, SCENE PAINTER-C [address] [facility] [address] [place] [phone] NURSE PRACTITIONER 01/04/17 04/03/24 Linda Block MD [address] [place] [address] [address] [place] [phone] [place] Attendant Child Activity CLINICAL CARDIAC ELECTROPHYSIOLOGY 02/08/17 04/12/23 documented as of this encounter
--- OUTSIDE RECORDS SUMMARY | 2024-09-03 19:15 | XMS_ITS | Encounter Summary ---
Author Organization [facility] Address [facility]6 [place] [address] [place] [address] Care Team Providers Care Tobacco Sampler Name Role Phone Piyush Pandey MD Unavailable Unavailabl Megan Leos MD Primary Care Provider [phone] Sharmila Davis APRN, JOURNEYMAN TOOL AND DIE MAKER-C Unavailable Linda Block MD Unavailable [phone] Encounter Details Date Type Department Care Team (Late st Contact Info) Description 04/28/2018 Orders Only [facility] [address] [place] [address] Piyush Pandey MD Social History [...] st Contact Info) Description 09/25/2024 2:00 PM REMEDIATION BIOANALYTICS CONSULTANT Appointment [facility] [address] [place] [address] Zayra Powell, BANQUET SET UP PERSON [address] [place] [address] 10/16/2024 3:30 PM REMEDIATION BIOANALYTICS CONSULTANT [facility] [address] [place] [address] Brit Gonzáles MD [address] [place] [address] documented as of this encounter Visit Diagnoses Diagnosis Aortic valve disease- Primary Aortic valve disorders LV dysfunction Heart disease, unspecified CHF (congestive heart failure) ([facility]) Congestive heart failure, unspecified Diabetes ([facility]) documented in this encounter Care Teams Tobacco Sampler Relationship Specialty Start Date End Date Megan Infante MD [address] [place] [address] PCP - General FAMILY PRACTICE 04/06/16 Piyush Pandey MD [employer] Sales Consultant CARDIOVASCULAR DISEASE 04/06/16 12/28/23 Sharmila Davis APRN, JOURNEYMAN TOOL AND DIE MAKER-C [address] [facility] [address] [place] [address] NURSE PRACTITIONER 01/04/17 04/03/24 Linda Block MD 619 [facility] [address] [place] [address] [employer] Sales Consultant CLINICAL CARDIAC ELECTROPHYSIOLOGY 02/08/17 04/12/23 documented as of this encounter
--- OUTSIDE RECORDS SUMMARY | 2024-09-03 19:15 | XMS_ITS | Encounter Summary ---
Author Organization [facility] Address [address] [place] [address]. [place] [address] [place] [address] Care Team Providers Care Clothing Trades Workers Name Role Phone Piyush Pandey MD Unavailable UnavailMegan Rodriguez MD Primary Care Provider [phone] Sharmila Davis APRN, NP-C Unavailable Reason for Visit * Reason Onset Date Comments Chest Pain 01/05/2017 Encounter Details Date Type Department Care Team (Late st Contact Info) Description 01/05/2017 Telephone [facility] [address] [place] [address] Piyush Pandey MD Chest Pain Social History Tobacco Use Types Packs/Day Years [...] Progress Notes * Hayley Gee RN - 01/05/2017 11:16 AM CDT Spoke with pt , he will restart Coreg 6.25 mg Bid and willing to precede with testing * STERLING Guillen - 01/05/2017 10:59 AM CDT Yes, RNST and echo. Restart coreg at 6.25mg BID. * Hayley Gee RN - 01/05/2017 9:57 AM CDT Pt called, he saw Sharmila yesterday in clinic and thinks he might need a cardiac cath. We talked forquite sometime, he describes atypical chest pain w/o SOB unless he takes stairs or increased activity. He claims his breathing is doing well but is more concerned about his chest pain. We discussed his med list , he stopped the Coreg after his d/c from [facility] in late April. He was not taking it inOctober when he saw Dr Callahan and Dr Infante's office did not stop the med. Will see if Sharmila wants to restart and will order RNST & echo in [place], documented in this encounter Plan of Treatment Upcoming Encounters Date Type Department Care Team (Late st Contact Info) Description 09/25/2024 2:00 PM HISTOPATHOLOGY TECHNICIAN Appointment [facility] [address] [place] [address] Zayra Powell, ADVERTISING SALES EXECUTIVE [address] [place] [address] 10/16/2024 3:30 PM HISTOPATHOLOGY TECHNICIAN Office Visit [facility] [address] [place] [address] Brit Gonzáles MD [address] [place], [place] [address] documented as of this encounter Visit Diagnoses Not on filedocumented in this encounter Care Teams Clothing Trades Workers Relationship Specialty Start Date End Date Megan Infante MD [address] [place] [address] PCP - General FAMILY PRACTICE 04/06/16 Piyush Pandey MD [place] Converter Skimmer CARDIOVASCULAR DISEASE 04/06/16 12/28/23 Sharmila Davis, DANNY, STOCKBROKING DEALER-C [address] [facility] [facility] [address] [place] [address] NURSE PRACTITIONER 01/04/17 04/03/24 documented as of this encounter
--- OUTSIDE RECORDS SUMMARY | 2024-09-03 19:15 | XMS_ITS | Encounter Summary ---
Author Organization [facility] Address [facility] [place] [address] [place] [address] Care Team Providers Care Tar Heater Operator Name Role Phone Piyush Pandey MD Unavailable UnavailMegan Rodriguez MD Primary Care Provider [phone] Sharmila Davis APRN, COAL PULVERIZING OPERATOR-C Unavailable Encounter Details Date Type Department Care Team (Late Contact Info) Description 01/05/2017 Orders Only [facility] [address] [place] [address] Haylye Gee RN Social History Tobacco Use Types [...] (Late Contact Info) Description 09/25/2024 2:00 PM NIGHTMAN Appointment [facility] [address] [place] [address] Zayra Powell, TRADING FLOOR OPERATOR [address] [place] [address] 10/16/2024 3:30 PM NIGHTMAN Office Visit [facility] [address] [place] [address] Brit Gonzáles MD [address] [place] [address] documented as of this encounter Visit Diagnoses Not on filedocumented in this encounter Care Teams Tar Heater Operator Relationship Specialty Start Date End Date Megan Infante MD [address] [place] [address] PCP - General FAMILY PRACTICE 04/06/16 Piyush Pandey MD [place] Asic Verification Engineer CARDIOVASCULAR DISEASE 04/06/16 12/28/23 Sharmila Davis APRN, COAL PULVERIZING OPERATOR-C [address] [facility] [address] [place] [address] NURSE PRACTITIONER 01/04/17 04/03/24 documented as of this encounter
--- OUTSIDE RECORDS SUMMARY | 2024-09-03 19:15 | XMS_ITS | Encounter Summary ---
Author Organization [facility] Address [facility]6 [place] [address] [place] [address] Care Team Providers Care Coil Rewind Machine Operator Name Role Phone Piyush Pandey MD Unavailable Unavailabl e Megan Infante MD Primary Care Provider [phone] Sharmila Davis APRN MERCHANDISE PLANNING MANAGER-C Unavailable Linda Block MD Unavailable [phone] Jeff Grace MD Unavailable Reason for Visit * Reason Onset Date Comments Appointment Request 02/20/2019 Encounter Details Date Type Department Care Team (Late st Contact Info) Description 02/20/2019 Telephone [facility] [address] [place] [address] Jeff Grace MD [address] [place] [address] Appointment Request Social History Tobacco Use Types [...] as of this encounter Progress Notes * Steffanie Kumar RN - 02/20/2019 11:18 AM CDT [facility]. Megan Infante([facility]abn STELLA-claudication/Medicare/fax records to 833#/mailed paperwork. Appt 03/07/19 @2:[address] Grace, in [place]. documented in this encounter Plan of Treatment Upcoming Encounters Date Type Department Care Team (Late st Contact Info) Description 09/25/2024 2:00 PM POLYGRAPH EXAMINER Appointment [facility] [address] [facility] [place] [address] Zayra Powell, FLIGHT ATTENDANT/INFLIGHT SUPERVISOR [address] [place] [address] 10/16/2024 3:30 PM POLYGRAPH EXAMINER Office Visit [facility] [address] [facility] [place] [address] Brit Gonzáles MD [address] [place], [place] [address] documented as of this encounter Visit Diagnoses Not on filedocumented in this encounter Care Teams Coil Rewind Machine Operator Relationship Specialty Start Date End Date Megan Infante MD [address] [facility] [address] [place] [address] PCP - General FAMILY PRACTICE 04/06/16 Piyush Pandey MD [place] Archeology Professor CARDIOVASCULAR DISEASE 04/06/16 12/28/23 Sharmila Davis APRN, MERCHANDISE PLANNING MANAGER-C [address] [facility] [address] [place] [address] NURSE PRACTITIONER 01/04/17 04/03/24 Linda Block MD [address] [place] [address] [phone] [place] Archeology Professor CLINICAL CARDIAC ELECTROPHYSIOLOGY 02/08/17 04/12/23 Jeff Grace MD [address] [place] [address] Consulting Physician INTERNAL MEDICINE 02/20/19 3 documented as of this encounter
--- OUTSIDE RECORDS SUMMARY | 2024-09-03 19:15 | XMS_ITS | Encounter Summary ---
Author Organization [facility] Address [address] [place] [address]. [place] [address] [place] [address] Care Team Providers Care Procedures Analyst Name Role Phone Piyush Pandey MD [facility] Rodriguez MD Primary Care Provider [phone] Encounter Details Date Type Department Care Team (Late Contact Info) Description 05/21/2016 JOB FORWARDER ONLY [facility] [address] [place] [address] Piyush Pandey MD Social History Tobacco [...] (Late Contact Info) Description 09/25/2024 2:00 PM CANT HOOKER Appointment [facility] [address] [place] [address] Zayra Powell, CARDIOTHORACIC ICU RN [address] [place] [address] 10/16/2024 3:30 PM CANT HOOKER Office Visit [facility] [address] [place] [address] Brit Gonzáles MD [address] [place] [address] documented as of this encounter Visit Diagnoses Not on filedocumented in this encounter Care Teams Procedures Analyst Relationship Specialty Start Date End Date Megan Infante MD [address] [facility] [place] [address] PCP - General FAMILY PRACTICE 04/06/16 Piyush Pandey MD [place] Animal Surgeon CARDIOVASCULAR DISEASE 04/06/16 12/28/23 documented as of this encounter
--- OUTSIDE RECORDS SUMMARY | 2024-09-03 19:15 | XMS_ITS | Encounter Summary ---
Author Organization [facility] Address On license of [facility]6 [facility] [place] [address] [place] [address] Care Team Providers Care State Assessed Properties Director Name Role Phone Piyush Pandey MD Unavailable Unavailabl e Megan Infante MD Primary Care Provider [phone] Sharmila Davis APRN FARMWORKER [employer]UR[employer]ARM-C Unavailable [phone] Linda Block MD Unavailable [phone] Jeff Grace MD Unavailable Reason for Visit * Reason Comments Lab (SCAN) Ultrasound (SCAN) ERROR - DATE # [id number] Ultrasound (SCAN) Encounter Details Date Type Department Care Team (Late st Contact Info) Description 02/17/2019 Scan [facility] [address] [place] [address] Scanned, Documents Lab (SCAN); Ultrasound (SCAN) (ERROR - DATE # [id number]); Ultrasound (SCAN) Social History Tobacco Use Types Packs/Day [...] Contact Info) Description 09/25/2024 2:00 PM CLOTH COVERER Appointment [facility] [address] [place] [address] Zayra Powell, CYANIDE POT TENDER [address] [place], [place] [address] 10/16/2024 3:30 PM CLOTH COVERER Office Visit [facility] [address] [place] [address] Brit Gonzáles MD [address] [place] [address] documented as of this encounter Procedures Procedure Name Priority Date/Time Associated Diagnosis Comments OUTSIDE LAB (SCAN ORDER) Routine 02/17/2019 ULTRASOUND GENERIC (SCAN ORDER) Routine 02/17/2019 documented in this encounter Results * OUTSIDE LAB (02/17/2019) 02/17/2019 us Documents Scanned SCANNING Final Result * ULTRASOUND (02/17/2019) Anatomical Region Laterality Modality Other us Documents Scanned SCANNING Final Result documented in this encounter Visit Diagnoses Not on filedocumented in this encounter Care Teams State Assessed Properties Director Relationship Specialty Start Date End Date Megan Infante MD [address] [facility] [place] [address] PCP - General FAMILY PRACTICE 04/06/16 Piyush Pandey MD [place] Circuit Manager CARDIOVASCULAR DISEASE 04/06/16 12/28/23 Sharmila Davis APRN, FARMWORKER [employer]URKEY FARM-C [address] [facility] [address] [place] [address] NURSE PRACTITIONER 01/04/17 04/03/24 Linda Block MD [address] [place] [address] [place] Circuit Manager CLINICAL CARDIAC ELECTROPHYSIOLOGY 02/08/17 04/12/23 Jeff Grace MD [address] [place] [address] Consulting Physician INTERNAL MEDICINE 02/20/19 3 documented as of this encounter
--- OUTSIDE RECORDS SUMMARY | 2024-09-03 19:15 | XMS_ITS | Encounter Summary ---
Author Organization [facility] Address [facility] [place] [address] [place] [address] Care Team Providers Care Respiratory Care Specialist Name Role Phone Piyush Pandey MD Unavailable UnavailMegan Rodriguez MD Primary Care Provider [phone] Sharmila Davis APRN, CAVITY PUMP OPERATOR-C Unavailable [phone] Linda Block MD Unavailable [phone] Encounter Details Date Type Department Care Team (Latest Contact Info) Description 05/21/2016 Abstract [facility] Social History Tobacco Use [...] st Contact Info) Description 09/25/2024 2:00 PM EINSTEIN BROS BAGELS ASSISTANT MANAGER Appointment [facility] [address] [place] [address] Zayra Powell, LOCATION DIRECTOR [address] [place] [address] 10/16/2024 3:30 PM EINSTEIN BROS BAGELS ASSISTANT MANAGER Office Visit [facility] [address] [place] [address] Brit Gonzáles MD [address] [place] [address] documented as of this encounter Visit Diagnoses Not on filedocumented in this encounter Care Teams Respiratory Care Specialist Relationship Specialty Start Date End Date Megan Infante MD [address] [place] [address] PCP - General FAMILY PRACTICE 04/06/16 Piyush Pandey MD [place] Pizza Hut Assistant CARDIOVASCULAR DISEASE 04/06/16 12/28/23 Sharmila Davis APRN, CAVITY PUMP OPERATOR-C [address] [facility] [address] [place] [address] NURSE PRACTITIONER 01/04/17 04/03/24 Linda Block MD [address] [facility] [address] [address] [place] Pizza Hut Assistant CLINICAL CARDIAC ELECTROPHYSIOLOGY 02/08/17 04/12/23 documented as of this encounter
--- OUTSIDE RECORDS SUMMARY | 2024-09-03 19:15 | XMS_ITS | Encounter Summary ---
Author Organization [facility] Address [facility]6 [facility] [place] [address] [place] [address] Care Team Providers Care Grazing Examiner Name Role Phone Piyush Pandey MD Unavailable Unavailabl e Megan Infante MD Primary Care Provider [phone] Sharmila Davis APRN, SUPERVISOR FARM EQUIPMENT MAINTENANCE-C Unavailable Linda Block MD Unavailable [phone] Jeff Grace MD Unavailable Encounter Details Date Type Department Care Team (Late st Contact Info) Description 02/20/2019 Abstract [facility] [address] [place] [address] Abstract, Doc [facility] Social History Tobacco Use [...] st Contact Info) Description 09/25/2024 2:00 PM PUDDLER HELPER Appointment [facility] [address] [place] [address] Zayra Powell, FINANCIAL SERVICE REPRESENTATIVE [address] [place] [address] 10/16/2024 3:30 PM PUDDLER HELPER [facility] [address] [place] [address] Brit Gonzáles MD [address] [place] [address] documented as of this encounter Visit Diagnoses Not on filedocumented in this encounter Care Teams Grazing Examiner Relationship Specialty Start Date End Date Megan Infante MD [address] [place] [address] PCP - General FAMILY PRACTICE 04/06/16 Piyush Pandey MD [place] Pan Washer CARDIOVASCULAR DISEASE 04/06/16 12/28/23 Sharmila Davis APRN, SUPERVISOR FARM EQUIPMENT MAINTENANCE-C [address] [facility] [address] [address] NURSE PRACTITIONER 01/04/17 04/03/24 Linda Block MD [address] [facility] [address] [address] [place] Pan Washer CLINICAL CARDIAC ELECTROPHYSIOLOGY 02/08/17 04/12/23 Jeff Grace MD [address] [facility] [address] [place] [address] Consulting Physician INTERNAL MEDICINE 02/20/19 3 documented as of this encounter
--- OUTSIDE RECORDS SUMMARY | 2024-09-03 19:15 | XMS_ITS | Encounter Summary ---
Author Organization [facility] Address [facility]6 [facility] [place] [address] [place] [address] Care Team Providers Care Proofreader Name Role Phone Piyush Pandey MD Unavailable UnavailMegan Rodriguez MD Primary Care Provider [phone] Sharmila Davis APRN, MUSIC LIBRARY ASSISTANT-C Unavailable Encounter Details Date Type Department Care Team (Late Contact Info) Description 01/05/2017 Orders Only [facility] [address] [place] [address] Hayley Gee RN Social History [...] (Late Contact Info) Description 09/25/2024 2:00 PM WAREHOUSE DISTRIBUTION SPECIALIST Appointment [facility] [address] [place] [address] Zayra Powell, MEDICAL LAB DIRECTOR [address] [place] [address] 10/16/2024 3:30 PM WAREHOUSE DISTRIBUTION SPECIALIST Office Visit [facility] [address] [place] [address] Brit Gonzáles MD [address] [place] [address] documented as of this encounter Visit Diagnoses Not on filedocumented in this encounter Care Teams Proofreader Relationship Specialty Start Date End Date Megan Infante MD [address] [place] [address] PCP - General FAMILY PRACTICE 04/06/16 Piyush Pandey MD [place] Fire Alarm Inspector CARDIOVASCULAR DISEASE 04/06/16 12/28/23 Sharmila Davis APRN, MUSIC LIBRARY ASSISTANT-C [address] [facility] [address] [place] [address] NURSE PRACTITIONER 01/04/17 04/03/24 documented as of this encounter
--- OUTSIDE RECORDS SUMMARY | 2024-09-03 19:16 | XMS_ITS | Encounter Summary ---
Author Organization [facility] Address [facility]6 [facility] [place] [address] [place] [address] Care Team Providers Care Supervising Nurse Name Role Phone Piyush Pandey MD, Amy E MD Primary Care Provider [phone] Reason for Visit * Reason Onset Date Comments Question 04/06/2016 Encounter Details Date Type Department Care Team ([facility] st Contact Info) Description 04/06/2016 Telephone [facility] [address] [place] [address] Sharmila Davis, CONSULTATIVE SALES ASSOCIATE, MASTER CHEF-C [address] [facility] [address] [place] [address] Question Social History Tobacco Use Types Packs/Day Years Used Date Smoking Tobacco: Former Alcohol Use Standard Drinks/Week Comments No 0 (1 standard drink = 0.6 oz pur e alcohol) Sex and Gender Information Value Date Recorded Sex Assigned at Not on file Legal Sex Male 10:01 PM CDT Gender Identity Not on file Sexual Orientation Not on file documented as of this encounter Progress Notes * Dari Hess RN - 04/06/2016 2:46 PM CDT Called patient's pharmacy to let them know that Amiodarone has been stopped and to deactivate patient's Amiodarone Rx. Spoke with Casandra who confirmed Rx has been deactivated. documented in this encounter Plan of Treatment Upcoming Encounters Date Type Department Care Team (Late st Contact Info) Description 09/25/2024 2:00 PM PRESIDENT CELEBRITY ACQUISTION Appointment [facility] [address] [place] [address] Zayra Powell, MINE SHIFTER [address] [place] [address] 10/16/2024 3:30 PM PRESIDENT CELEBRITY ACQUISTION Office Visit [facility] [phone] [place] [address] Brit Gonzáles MD [address] [place] [address] documented as of this encounter Visit Diagnoses Not on filedocumented in this encounter Care Teams Supervising Nurse Relationship Specialty Start Date End Date Megan Infante MD [address] [facility] [place] [address] PCP - General FAMILY PRACTICE 04/06/16 Piyush Pandey MD [place] Wheel Loader Operator CARDIOVASCULAR DISEASE 04/06/16 12/28/23 documented as of this encounter
--- OUTSIDE RECORDS SUMMARY | 2024-09-03 19:16 | XMS_ITS | Encounter Summary ---
Author Organization [facility] Address [facility] [place] [address] [place] [address] Care Team Providers Care Industrial Workers Name Role Phone Piyush Pandey MD, Amy E MD Primary Care Provider [phone] Reason for Visit * Reason Comments Follow Up Breathing Problem Atrial Fibrillation Encounter Details Date Type Department Care Team (Latest Contact Info) Description 04/06/2016 1:00 PM CDT Office Visit [facility] [address] [place] [id number] Sharmila Davis, DANNY, MARBLE FINISHER-C [address] [place] [address] [address] [place] [address] Follow Up; Breathing Problem; Atrial Fibrillation Social History Tobacco Use Types Packs/Day Years Used Date Smoking Tobacco: Former Tobacco Cessation:Counseling Given: No Alcohol Use Standard Drinks/Week Comments No 0 (1 standard drink = 0.6 oz pur e alcohol) Sex and Gender Information Value Date Recorded Sex Assigned at Not on file Legal Sex Male 10:01 PM CDT Gender Identity Not on file Sexual Orientation Not on file documented as of this encounter Last Filed Vital Signs Vital Sign Reading Time Taken Comments Blood Pressure 112/80 04/06/2016 1:22 PM CDT Pulse 60 04/06/2016 1:21 PM CDT Temperature - - Respiratory Rate 16 04/06/2016 1:21 PM CDT Oxygen Saturation - - Inhaled Oxygen Concentration - - Weight 100.5 kg (221 lb 9.6 oz) 04/06/2016 1:21 PM CDT Height 170.2 cm (5' 7 ) 04/06/2016 1:21 PM CDT Body Mass Index 34.71 04/06/2016 1:21 PM CDT documented in this encounter Progress Notes * Sharmila Davis NP-C - 04/06/2016 2:35 PM CDT [address] [address] [place] [address] PATIENT FOLLOW-UP VISIT FROM: The Office of Sharmila Davis NP supervised by Piyush Pandey III, M.D. RE: Mendez Lay : 1955 Dear MEGAN INFANTE M.D.: Your patient, Mendez Lay was seen on 04/06/16 at the [facility]. Chief Complaint: Follow Up; Breathing Problem; and Atrial Fibrillation Recommendations/Plan: Mr. Lay's recent symptomatology is likely multifactorial given his underlying pulmonary disease,LV dysfunction, aortic valve disease, and return of atrial fibrillation. His heart rate is well controlled, and therefore his atrial fibrillation should not be causing his shortness of breath. We will discontinue his amiodarone to ensure this is not contributing to his symptoms. Continued medical therapy and aggressive cardiac risk factor modification seem most appropriate at the present time. I have recommended the following to Mr. Lay: 1. Shortness of Breath. We will discontinue his amiodarone. He has pulmonary function tests with DLCO scheduled for 04/15/16 at [facility] in [place]. Dr. Block will be copied on these results. 2. Atrial Fibrillation. He is anticoagulated with warfarin, which is managed by his primary care physician. He is rate controlled with his carvedilol and amiodarone. With the discontinuation of his amiodarone, his heart rate may increase. We will check a BMP today. He will follow up with Dr. Block in two weeks and will have a Holter monitor initiated at that time. 3. LV Dysfunction. He is tolerating his carvedilol and lisinopril. He is currently taking lasix 40 mg BID and appears euvolemic upon exam. We will order a BNP. If this does not demonstrate significant elevation, we will not attempt further diuresis at this time. His last echocardiogram demonstratedan LVEF 40%. We will reevaluate this in July with an echocardiogram. 4. Aortic Valve Stenosis s/p AVR. His recent echocardiogram revealed a peak velocity of 2.92 m/s, peak gradient 34 mmHg, mean gradient 20 mmHg, and aortic valve area 1.02 cm2. This is the first echocardiogram since his AVR in our records. We will recheck in July to ensure his aortic stenosis isstable. 5. Hypertension. His blood pressure is well controlled in the office today. 6. Hyperlipidemia. His LDL was elevated in the hospital. I instructed him to take his atorvastatin daily. He will follow up with his primary care provider for his lipid management. We recommend an LDL less than 100. He will follow up with Dr. Block in two weeks. We will plan to see Mr. Lay in July with anechocardiogram prior to his appointment. I have encouraged him to contact me in the meantime shouldhe have any questions or problems. ADDENDUM: His lab results from today did not indicate significant congestive heart failure or electrolyte abnormality. His BNP was 184, sodium 138, potassium 4.1, BUN 22, creatinine 1.44, and GFR 50.We will continue current medications, and he will follow up with Dr. Block. Medications: Current Outpatient Prescriptions: ??? acetaminophen (TYLENOL) [...] meals., Disp: 60 tablet, Rfl: 3 ??? furosemide 40 MG tablet, Take 1 tablet by mouth 2 (two) times daily., Disp: , Rfl: ??? hydrocodone-acetaminophen 5-500 MG per capsule, hydrocodone-acetaminophen capsule 5-500 mg; take 1-2 tablet by mouth at bedtime as needed; 0; 18-Apr-2014; Active, Disp: , Rfl: ??? lisinopril 20 MG tablet, Take 20 mg by mouth daily., Disp: , Rfl: ??? metFORMIN (GLUCOPHAGE) 1000 MG tablet, Glucophage (metformin) tablet 1,000 mg; take 1 tablet bymouth twice a day with meals; 0; 05-Jun-2014; Active, Disp: , Rfl: ??? Prazosin HCl 2 MG Cap, TAKE 1 CAPSULE BY MOUTH AT BEDTIME, Disp: , Rfl: 2 ??? sildenafil (VIAGRA) 50 MG tablet, Viagra (sildenafil) tablet 50 mg; take 1 tablet as directed; 0; 14-Nov-2015; Active, Disp: , Rfl: ??? trazodone 100 MG [...] Disp: , Rfl: 2 No Known Allergies History of Present Illness: Mr. Lay is a pleasant 60-year-old year-old male seen in the cardiology clinic today for a followup visit regarding shortness of breath. He has a history of mild coronary artery disease, paroxysmalatrial fibrillation, aortic stenosis s/p mechanical valve replacement in 1999 and bioprosthetic valve replacement in 2013, LV dysfunction, mild carotid stenosis, hypertension, hyperlipidemia, type IIdiabetes, and COPD. He underwent a PVI/WACA per Dr. Block on 10/24/15. He then presented to [facility] with atrial fibrillation with RVR on 03/23/16. He was transferred to [facility] and had a NEMO guided direct current cardioversion. His atrial fibrillation episode was attributed to his marked hypertension, which improved during the hospitalization. He was discharged on 03/27/16 on amiodarone therapy. He reports that he has been short of breath since his discharge. He denies any anginal chest pain. He has been shortness of breath with minimal exertion. He has chronic shortness of breath, but this has been progressively worse since his discharge. He is concernedbecause he usually develops congestive heart failure symptoms with atrial fibrillation. He denies any claudication. He denies any overt symptoms of congestive heart failure such as paroxysmal nocturnal dyspnea, orthopnea, or pedal edema. He reports an occasional productive cough with clear/yellow sputum. He has no palpitations, lightheadedness, or syncope. He reports occasional dizziness, with the last one yesterday while sitting watching TV. This only lasts seconds. He denies signs and symptoms of CVA or TIA. He seems to be tolerating his present medications well without reported side effects. He has records of taking atorvastatin 20 mg and 80 mg. His recent discharge indicates 20 mg. He is unsure the dosage he takes. He also admits to not taking it everyday. He denies statin associated m yalgias. He denies signs of bleeding. Evaluation during the clinic visit included an EKG which confirmed the presence of atrial fibrillation at a rate of 63 beats per minute with a QTc 492 ms. His INR yesterday was 1.89 after holding doses due to his previous INR of 4.6. His most recent lab results from his hospitalization were sodium 136, potassium 4.2, BUN 20, creatinine 1.51, GFR 47, magnesium 2.1, total cholesterol 270, LDL 164, HDL 66, and triglycerides 219. His chest xray on 04/03/16 mild central interstitial edema, which could be a baseline appearance for this patient or due to mild acute congestive changes. Past Medical History Diagnosis Date ??? Anxiety ??? Aortic valve stenosis ??? Arthritis ??? Atrial fibrillation s/p PVI/WACA 10/2015 ??? Carotid disease, bilateral ??? COPD (chronic obstructive pulmonary disease) ??? Coronary artery disease ??? Diabetes mellitus, type II ??? Hyperlipidemia ??? Hypertension ??? LV dysfunction ??? Restless leg syndrome ??? S/P aortic valve replacement with bioprosthetic valve 2013 Past Surgical History Procedure Laterality Date ??? Cardiac valve replacement 1999 ??? Cardiac valve replacement 2013 ??? Knee arthroplasty Bilateral ??? Hip arthroplasty Left ??? Repair rotator cuff w/ or w/o acromioplasty ??? Appendectomy ??? Cardioversion external Social History Social History ??? Marital status: Spouse name: karthik ??? Number of children: N/A ??? Years of education: N/A Social History Main Topics ??? Smoking status: Former Smoker ??? Smokeless tobacco: None ??? Alcohol use No ??? Drug use: No ??? Sexual activity: Not Asked Other Topics Concern ??? Exercise No ??? Special Diet No ??? Caffeine Concern No Social History Narrative Family History Problem Relation Age of Onset ??? Heart Disease Neg Hx Family Status Relation Status ??? Neg Hx Review of Systems Constitutional: Negative for malaise/fatigue and weight loss. HENT: Negative for hearing loss. Eyes: Negative for blurred vision and double vision. Respiratory: Positive for cough and shortness of breath. Negative for hemoptysis. Denies snoring. Cardiovascular: Negative for orthopnea. CV ROS as noted in history of present illness. Gastrointestinal: Negative for blood in stool and melena. Genitourinary: Negative for dysuria. Musculoskeletal: Negative for joint pain and myalgias. Skin: Negative for rash. Neurological: Negative for tingling, sensory change, focal weakness and headaches. Endo/Heme/Allergies: Does not bruise/bleed easily. Denies intolerance to heat/cold or excessive hunger/thirst. Filed Vitals: 04/06/16 1321 04/06/16 1322 BP: 112/78 112/80 Pulse: 60 Resp: 16 Weight: 100.5 kg (221 lb 9.6 oz) Height: 5' 7 (1.702 m) Physical [...] present. Examreveals no S3 and no S4. Murmur heard. Systolic murmur is present with a grade of 2/6 Pulses: Dorsalis pedis pulses are 2+ on [...] He exhibits no edema. No severe kyphoscoliosis. Neurological: He is oriented to person, place, and time. Neuro exam grossly normal. Skin: Skin is warm, dry and intact. No cyanosis. Nails show no clubbing. Without evidence of xanthoma. Psychiatric: He has a normal mood and affect. No results found for this visit on 04/06/16. Diagnoses/Impression: 1. Shortness of breath BNP BASIC METABOLIC PANEL BNP BASIC METABOLIC PANEL 2. S/P aortic valve replacement with bioprosthetic valve 3. LV dysfunction 4. Persistent atrial fibrillation ELECTROCARDIOGRAM (NON MIDMARK ACQUIRED) BNP BASIC METABOLIC PANEL BNP BASIC METABOLIC PANEL 5. Coronary artery disease involving grand ronde tribes coronary artery of grand ronde tribes heart without angina pectorisELECTROCARDIOGRAM (NON MIDMARK ACQUIRED) 6. Hyperlipidemia, unspecified hyperlipidemia 7. FDC current use of antiarrhythmic drug BASIC METABOLIC PANEL BASIC METABOLIC PANEL PINNACLE Documentation Completed: Atrial Fibrillation Coronary Artery Disease Heart Failure Follow up Plan for BMI: Follow up reason overweight: Recommended patient increases physical activity and Recommended eating a balanced diet. documented in this encounter Plan of Treatment Upcoming Encounters Date Type Department Care Team (Late st Contact Info) Description 09/25/2024 2:00 PM COGNOS ADMINISTRATOR Appointment [facility] [address] [place] [address] Zayra Powell FNP [address] [place] [address] 10/16/2024 3:30 PM COGNOS ADMINISTRATOR Office Visit [facility] [address] [place] [address] Brit Gonzáles MD [address] [place] [address] documented as of this encounter Procedures Procedure Name Priority Date/Time Associated Diagnosis Comments BNP Routine 04/06/2016 3:10 PM CDT Persistent atrial fibrillation (CMS/HCC HHS/HCC) Shortness of breath BASIC METABOLIC PANEL Routine 04/06/2016 3:10 PM CDT Persistent atrial fibrillation (CMS/HCC HHS/HCC) Shortness of breath FDC current use of antiarrhythmic drug documented in this encounter Results * (ABNORMAL) BASIC METABOLIC PANEL (04/06/2016 3:10 PM CDT) SODIUM S/P/B 138 135 - 147 MMOL/L 04/06/2016 4:04 PM CDT [facility] POTASSIUM S/P/B 4.1 3.5 - 5.0 MMOL/L 04/06/2016 4:04 PM CDT [facility] CHLORIDE S/P/B 101 98 - 107 MMOL/L 04/06/2016 4:04 PM CDT [facility] CO2 24.0 22 - 29 MMOL/L 04/06/2016 4:04 PM CDT [facility] GLUCOSE 122(H) 70 - 109 MG/DL 04/06/2016 4:04 PM CDT [facility] BUN 22 8 - 26 MG/DL 04/06/2016 4:04 PM CDT [facility] CREATININE S/P/B 1.44(H) 0.70 - 1.30 MG/DL 04/06/2016 4:04 PM CDT [facility] CALCIUM S/P/B 9.9 8.8 - 10.0 MG/DL 04/06/2016 4:04 PM CDT [facility] EGFR NON-AFR. AMER. 50(L) >60 ML/MIN/1.7 3 M2 04/06/2016 4:04 PM CDT [facility] EGFR AFR. AMER. 60(L) >60 ML/MIN/1.7 3 M2 04/06/2016 4:04 PM CDT [facility] ANION GAP 13.0 MMOL/L 04/06/2016 4:04 PM CDT [facility] OSMOLALITY (CALC) 280 MOSM/KG 04/06/2016 4:04 PM CDT [facility] PLASMA SPECIMEN / Unknown 04/06/2016 3:10 PM CDT 04/06/2016 3:11 PM CDT ALDAIR Guillen APRNC LABORATORY Final Result Performing Organization Address [facility] Co de Phone Number [facility] [address] [place] [address], [phone] * (ABNORMAL) BNP (04/06/2016 3:10 PM CDT) Pathologist [facility] B TYPE NATRIURETIC PEPTIDE 184(H) 0 - 100 PG/ML 04/06/2016 4:05 PM CDT [facility] WHOLE BLOOD SPECIMEN / Unknown 04/06/2016 3:10 PM CDT 04/06/2016 3:11 PM CDT Sharmila Davis APRN, NP-C LABORATORY Final Result Performing Organization Address [facility] Co de Phone Number [facility] [address] [place] [address], [place] [phone] documented in this encounter Visit Diagnoses Diagnosis Shortness of breath S/P aortic valve replacement with bioprosthetic valve Heart valve replaced by other means LV dysfunction Heart disease, unspecified Persistent atrial fibrillation (CMS/HCC HHS/HCC) Atrial fibrillation Coronary artery disease involving grand ronde tribes coronary artery of grand [place]onde tribes heart without angina pectoris Hyperlipidemia, unspecified hyperlipidemia rn long term care current use of antiarrhythmic drug documented in this encounter Care Teams Industrial Workers Relationship Specialty Start Date End Date Megan Infante MD [address] [place] [address] PCP - General FAMILY PRACTICE 04/06/16 Piyush Pandey MD [place] Workplace Relations Adviser CARDIOVASCULAR DISEASE 04/06/16 12/28/23 documented as of this encounter
--- OUTSIDE RECORDS SUMMARY | 2024-09-03 19:16 | XMS_ITS | Encounter Summary ---
Author Organization [facility] Address [facility] access hospital[facility] [place] [address] [place] [address] Care Team Providers Care Full Stack Web Developer Name Role Phone Piyush Pandey MD Unavailable Unavailabl e Megan Infante MD Primary Care Provider [phone] Sharmila Davis APRN, JEWEL OLIVING MACHINE OPERATOR-C Unavailable Linda Block MD Unavailable [phone] Encounter Details Date Type Department Care Team (Late st Contact Info) Description 04/06/[address] [facility] [address] [place], [place] [phone] Sharmila Davis APRN, JEWEL OLIVING MACHINE OPERATOR-C [address] [facility] [address] [place] [phone] Social History Tobacco Use Types Packs/Day Years [...] (Late Contact Info) Description 09/25/2024 2:00 PM PRINTING MANAGER Appointment [facility] [address] [place] [address] Zayra Powell, SOLID WASTE DIVISION SUPERVISOR [address] [place] [address] 10/16/2024 3:30 PM PRINTING MANAGER Office Visit [facility] [address] [place] [address] Brit Gonzáles MD [address] [place] [address] documented as of this encounter Visit Diagnoses Diagnosis Encounter for therapeutic drug level monitoring Encounter for therapeutic drug monitoring documented in this encounter Care Teams Full Stack Web Developer Relationship Specialty Start Date End Date Megan Infante MD [address] [place] [address] PCP - General FAMILY PRACTICE 04/06/16 Piyush Pandey MD [place] Urban Design Consultant CARDIOVASCULAR DISEASE 04/06/16 12/28/23 Sharmila Davis APRN, JEWEL OLIVING MACHINE OPERATOR-C [address] [facility] [address] [place] [address] NURSE PRACTITIONER 01/04/17 04/03/24 Linda Block MD [address] [facility] [address] [place] [address] [place] Urban Design Consultant CLINICAL CARDIAC ELECTROPHYSIOLOGY 02/08/17 04/12/23 documented as of this encounter
--- OUTSIDE RECORDS SUMMARY | 2024-09-03 19:16 | XMS_ITS | Encounter Summary ---
Author Organization [facility] Address [facility] [place] [address] [place] [address] Care Team Providers Care International Marketing Manager Name Role Phone Piyush Pandey MD Unavailable UnavailMegan Rodriguez MD Primary Care Provider [phone] Sharmila Davis APRN, DRAWING BOX TENDER-C Unavailable [phone] Linda Block MD Unavailable [phone] Encounter Details Date Type Department Care Team (Latest Contact Info) Description 05/13/2016 Abstract [facility] Shashi Philip MD [address] [phone] Social History Tobacco Use Types Packs/Day Years [...] st Contact Info) Description 09/25/2024 2:00 PM ASSEMBLY ROOM SUPERVISOR Appointment [facility] [address] [place] [address] Zayra Powell, AGRICULTURE PROFESSOR [address] [place] [address] 10/16/2024 3:30 PM ASSEMBLY ROOM SUPERVISOR [facility] [address] [place] [address] [place] [phone] Brit Gonzáles MD [address] [place] [address] documented as of this encounter Procedures Procedure Name Priority Date/Time Associated Diagnosis Comments ECG 12-LEAD Routine 05/13/2016 6:55 PM CDT XR CHEST PORTABLE Routine 05/13/2016 6:2 9 PM CDT documented in this encounter Results * ECG 12 lead (05/13/2016 6:55 PM CDT) 05/13/2016 6:55 PM CDT Narrative [facility] - 05/14/2016 2:15 PM CDT ? [facility] ? [address] [place], [place] ??[address] ? Test Date: ?2016-05-13 Pat Name: ? OBIE SIMS ?Department: ?? 1 ? Room: ? ICUA Gender: ? M ?Pharmacy Care Coordinator: ?? LUIS F PERAZA : ?1955 ? Requested By: SHASHI PHILIP Order Number: [id number] ? Sage LANDRY: ?? Esteban Samano ? Measurements Intervals ?[place] ? Rate: ? 79 ? P: ? [place]: ? 0 ?QRS: ?-10 QRSD: ? 140 ?T: ?145 QT: ? 426 ? QTc: ?489 ? Interpretive Statements ATRIAL FIBRILLATION INTRAVENTRICULAR CONDUCTION DELAY POSSIBLE ANTERIOR MYOCARDIAL INFARCTION, OF INDETERMINATE AGE Procedure Note Eun Landry, - 04/18/2019 [place] [address] [place] [address] Test Date: 2016-05-13 Pat Name: OBIE SIMS Department: 1 Room: ICUA Gender: M Pharmacy Care Coordinator: LUIS F PERAZA : 1955 Requested By: SHASHI PHILIP Order Number: [id number] Reading MD: Esteban Samano Measurements Intervals [place] Rate: 79 P: [place]: 0 QRS: -10 QRSD: 140 T: 145 QT: 426 QTc: 489 Interpretive Statements ATRIAL FIBRILLATION INTRAVENTRICULAR CONDUCTION DELAY POSSIBLE ANTERIOR MYOCARDIAL INFARCTION, OF INDETERMINATE AGE us Generic Conversion Md LANDRY ECG ORDERABLES Final R esult [facility] * XR CHEST PORTABLE (05/13/2016 6:29 PM CDT) Anatomical Region Laterality Modality Chest Radiographic Stephie ging 05/13/2016 6:29 PM CDT 05/13/2016 6:29 PM CDT Narrative 05/13/2016 7:43 PM CDT [facility] ?? [place], [place] ?? Department of Radiology ? OBIE SIMS Ordering MD: SHASHI PHILIP MD ?? Acct: [id number] ?? : 1955 Pt Type: ADM IN ?? Sex: M Ord Site: MAIN ? Study Date Accession # Procedure Code Procedure ?? 05/13/16 [id number] XR Chest 1 View Portable ? Signed ? EXAMINATION: ?? X-ray chest, single view ? HISTORY: ?? ICU patient. Acute dyspnea. History of COPD. ? COMPARISON: ?? Chest x-ray 10/24/2015. ? TECHNIQUE: ?? A single portable AP view of the chest. ? FINDINGS: ?? There is increasing cardiomegaly. There is central pulmonary vascular prominence, likely ?? related to pulmonary vascular congestion. There is a focal area of opacification over the ?? right mid lung concerning for possible pneumonia. There is hazy opacification overlying the ?? mid and lower lungs bilaterally concerning for possible pulmonary edema. There are probable ?? small bilateral pleural effusions. No definite pneumothorax. Median sternotomy wires are ?? present. ? IMPRESSION: ? 1. Increasing cardiomegaly. ?? 2. Hazy opacification overlying the bilateral mid and lower lungs concerning for possible ?? pulmonary edema. ?? 3. More focal area of opacification overlying the right midlung concerning for possible ?? pneumonia. ?? 4. Probable small bilateral pleural effusions. ? The attending radiologist has reviewed the image(s) and agrees with the content of this report. ? Electronically Signed By: TEE NESS MD 05/13/16 194 ? Dictated On: 05/13/161828 ?? Interpreted By: FLORINA ROMERO DO, RES ?? Transcribed On: 05/13/16 183 - INFCE ? CC: ? SHASHI PHILIP MD Procedure Note Eun Landry MD - 06/16/2018 [place], [place] Department of Radiology OBIE SIMS Ordering MD: SHASHI PHILIP MD Acct: [id number] : 1955 Pt Type: ADM IN Sex: M Ord Site: MAIN Study Date Accession # Procedure Code Procedure 05/13/16 [id number] XR Chest 1 View Portable Signed EXAMINATION: X-ray chest, single view HISTORY: ICU patient. Acute dyspnea. History of COPD. COMPARISON: Chest x-ray 10/24/2015. TECHNIQUE: A single portable AP view of the chest. FINDINGS: There is increasing cardiomegaly. There is central pulmonary vascularprominence, likely related to pulmonary vascular congestion. There is a focal area ofopacification over the right mid lung concerning for possible pneumonia. There is hazyopacification overlying the mid and lower lungs bilaterally concerning for possible pulmonary edema.There are probable small bilateral pleural effusions. No definite pneumothorax. Mediansternotomy wires are present. IMPRESSION: 1. Increasing cardiomegaly. 2. Hazy opacification overlying the bilateral mid and lower lungsconcerning for possible pulmonary edema. 3. More focal area of opacification overlying the right midlungconcerning for possible pneumonia. 4. Probable small bilateral pleural effusions. The attending radiologist has reviewed the image(s) and agrees with thecontent of this report. Electronically Signed By: TEE NESS MD 05/13/161939 Dictated On: 05/13/161828 Interpreted By: FLORINA ROMERO DO, RES Transcribed On: 05/13/16 1833 - INFCE CC: SHASHI PHILIP MD Shashi Philip MD GENERAL IMAGING Final Result documented in this encounter Visit Diagnoses Not on filedocumented in this encounter Care Teams International Marketing Manager Relationship Specialty Start Date End Date Megan Infante MD [address] [place] [address] PCP - General FAMILY PRACTICE 04/06/16 Piyush Pandey MD [place] Ingot Supervisor CARDIOVASCULAR DISEASE 04/06/16 12/28/23 Sharmila Davis, MERCERIZING RANGE FEEDER, DRAWING BOX TENDER-C [address] [facility] [address] [place] [address] NURSE PRACTITIONER 01/04/17 04/03/24 Linda Block MD [address] [place] [address] [place] Ingot Supervisor CLINICAL CARDIAC ELECTROPHYSIOLOGY 02/08/17 04/12/23 documented as of this encounter
--- OUTSIDE RECORDS SUMMARY | 2024-09-03 19:16 | XMS_ITS | Encounter Summary ---
Author Organization [facility] Address [address] [place] [address]. [place] [address] [place] [address] Care Team Providers Care Hose Builder Name Role Phone Amauri Pandey MD [facility] Coast[facility]egan Rodriguez MD Primary Care Provider [phone] Encounter Details Date Type Department Care Team (Late Contact Info) Description 05/14/2016 Orders Only [facility] [address] [place] [phone] Amauri Pandey MD Social History Tobacco Use [...] (Late Contact Info) Description 09/25/2024 2:00 PM BLOWER INSTALLER Appointment [facility] [address] [place] [id number] Zayra Powell, DATA WAREHOUSE ARCHITECT [address] [place] [id number] 10/16/2024 3:30 PM BLOWER INSTALLER Office Visit [facility] [address] [place] [phone] Brit Gonzáles MD [address] [place] [address] documented as of this encounter Procedures Procedure Name Priority Date/Time Associated Diagnosis Comments USE ECHOCARDIOGRAM 05/14/2016 3: 00 PM CDT documented in this encounter Results * USE ECHOCARDIOGRAM (05/14/2016 3:00 PM CDT) Anatomical Region Laterality Modality Cardiac Echocardiogram 05/14/2016 3:00 PM CDT Narrative 05/14/2016 12:00 AM CDT ?Echocardiography Report Pat.Name: ??OBIE SIMS ?Pat.ID: ?[id number] ? St.Date: ?? 05/14/2016 ? Refer.: ??AMAURI PANDEY ? Exam Time: 3:00:00 PM ? Study Type:ECHO WITH CARDIAC DOPPLER COMP Height: ?170cm ? Weight: ?101kg ? BSA: ? 2.11 m2 ?Age: ??1955,60Y ? Sex: ? MALE ?HR: ?74 bpm ? Sonogrphr: Rosa M Moore ? CPT - 4: ?? C8929 ? Reason for Study:Aortic stenosis, Aortic insufficiency Procedures:2D, M-mode, Doppler, Color Flow, Definity was used to enhance endocardial definition., Portable Race: ?C ? ++++++++++++++++++++++++++++++++++++ SUMMARY: ++++++++++++++++++++++++++++++++++++ Bioprosthetic aortic valve is in the aortic position with a peak gradient of 46 mmHg (mean 24 mmHg). ??Calculated EMILE is 0.85-0.90 cm2. No evidence of aortic valve regurgitation. Moderate concentric left ventricular hypertrophy. ??The left ventricular systolic function is mildly depressed. ??Estimated left ventricular ejection fraction is 45%. Biatrial enlargement. Mild mitral regurgitation. Mild tricuspid regurgitation. ??The peak PA systolic pressure is estimated to be 47 mmHg. ++++++++++++++++++++++++++++++++++++ FINDINGS: ++++++++++++++++++++++++++++++++++++ LV: ? The left ventricular size is normal. The left ventricular ?systolic ??function is mildly depressed. Estimated left ?ventricular ??ejection fraction is 45%. Moderate concentric ?left ??ventricular hypertrophy. RV: ? The right ventricular size is normal. Right ventricular ?systolic ??function is preserved. TAPSE = 15mm (<16 mm ?indicates ??systolic RV dysfunction). IVS: ?Abnormal septal motion is noted. LA: ? The left atrial volume is mildly increased (34- 41ml/M2). RA: ? Right atrial size is mildly enlarged. IAS: ?Atrial septum appears intact. ANYA: ? No evidence of pericardial effusion. AO: ? Normal aortic root. PA: ? The peak pulmonary artery systolic pressure is estimated to ?be ??approximately 47 mmHg. Estimated right atrial pressure ?of ??10 mmHg. SVn: ?Inferior vena cava shows <50% collapse with respiration ?consistent ??with elevated right atrial pressure. AV: ? No evidence of aortic valve regurgitation. A bovine ??valve ?is ??in the aortic position with post-deployment peak ?velocity ??of 3.32m/sec, mean gradient of 22mmHg and a ?calculated ??EMILE of 0.85cm2. MV: ? Structurally normal mitral valve. Mild mitral regurgitation. ?No ??evidence of mitral stenosis. Calcified posterior mitral ?annulus. ??Mild thickening of mitral valve leaflets. PV: ? The pulmonic valve is normal There is trace pulmonic ?regurgitation TV: ? Structurally normal tricuspid valve. Mild tricuspid ?regurgitation. ++++++++++++++++++++++++++++++++++++ MEASUREMENTS: ++++++++++++++++++++++++++++++++++++ ?DOPPLER LVOT ?? LVOT TVI ?18 cm ?LVOTpkPG ? 3 mmHg LVOTmnPG ? 2 mmHg ?LVOT CO ? 78.3 ml/s LVOTpkVel ? 89.1 cm/s (70-110)? ? ? LVOT SV ? 57 ml ?? Index ?27 ml/m? ? ? Right Atrium ?? RA Press ?10 mmHg ? AV Forward Flow AV mnVel ? 195 cm/s ?AV pkPG ? 38 mmHg AV mnPG ? 18 mmHg ?Area (TVI) ?0.91 cm2 ??(3- 5)* Index ?0.431 cm? ? ?/m? ? ? AV TVI ?61.9 cm ?Area (Wilbert) ? 0.9 cm2 ??(3- 5)* AV pkVel ? 310 cm/s (100-170)? ? ? * MV Forward Flow MV pkE ? 165 cm/s (60-130)* MV E/A ? 3.1 ? MV pkA ?52.4 cm/s ?MV DeTm ?194 ms ?? PV Forward Flow PV pkVel ? 104 cm/s (60-90)* PV pkPG ?4 mmHg TV Regurg Flow TV pkVel ? 301 cm/s (30-70)? ? ? * TV pkPG ? 36 mmHg Right Ventricle ?? RVsys P ? 46 mmHg ? Lat E' ?? Lat e ? 9.34 cm/s ? Lat E/E' ?? Lat E/e ? 17.7 ? Med E' ?? Med e ? 4.11 cm/s ? Med E/E' ?? Med E/e ? 40.1 ? AV DI ?? Value ?0.3 ? EMILE (VTI) Index ?? Value ? 0.43 ? LV Mass 2D ?? Value ?292 g ? LV Mass Index 2D ?? Value ?138 g/m2 ?2D Left Ventricle ?? LVIDd ? 5.14 cm ?? (3.6-5.2) LVIDs ? 4.07 cm ?? (2.3-3.9)* LVPW ?? LVPWd ? 1.54 cm ? Ventricular Septum ?? IVSd ?1.18 cm ? Left Atrium ?? LA a-p ? 5.2 cm ?? (2.8-3.4)? ? ? * LVOT ?? LVOT ? 2 cm ? Ratios ?? IVS LA Biplane LAVol I BP ?37.4 ml/m2 ?MMODE Left Atrium ?? LAID ? 4.4 cm ?? (1.9-4)* Index ?2.09 cm/m? Ratios ?? LA/Ao ? 1.22 ?(0.87-1.1)* Aorta ?? Ao Rt ?3.6 cm ?? (2-3.7) ?? Signed 05/14/2016 07:48 PM Amauri Pandey M.D. Procedure Note Amauri Pandey MD - 05/14/2016 Echocardiography Report Pat.Name: OBIE SIMS Pat.ID: [id number] St.Date: 05/14/2016 Refer.MD: AMAURI PANDEY Exam Time: 3:00:00 PM Study Type:ECHO WITH CARDIAC DOPPLER COMP Height: 170cm Weight: 101kg BSA: 2.11 m2 Age: 11 1955,60Y Sex: MALE HR: 74 bpm Sonogrphr: Rosa M Moore CPT - 4: C8929 Reason for Study:Aortic stenosis, Aortic insufficiency Procedures:2D, M-mode, Doppler, Color Flow, Definity was used to enhance endocardial definition., Portable Race: C ++++++++++++++++++++++++++++++++++++ SUMMARY: ++++++++++++++++++++++++++++++++++++ Bioprosthetic aortic valve is in the aortic position with a peak gradient of 46 mmHg (mean 24 mmHg). Calculated EMILE is 0.85-0.90 cm2. No evidence of aortic valve regurgitation. Moderate concentric left ventricular hypertrophy. The left ventricular systolic function is mildly depressed. Estimated left ventricular ejection fraction is 45%. Biatrial enlargement. Mild mitral regurgitation. Mild tricuspid regurgitation. The peak PA systolic pressure is estimated to be 47 mmHg. ++++++++++++++++++++++++++++++++++++ FINDINGS: ++++++++++++++++++++++++++++++++++++ LV: The left ventricular size is normal. The left ventricular systolic function is mildly depressed. Estimated left ventricular ejection fraction is 45%. Moderate concentric left ventricular hypertrophy. RV: The right ventricular size is normal. Right ventricular systolic function is preserved. TAPSE = 15mm (<16 mm indicates systolic RV dysfunction). IVS: Abnormal septal motion is noted. LA: The left atrial volume is mildly increased (34- 41ml/M2). RA: Right atrial size is mildly enlarged. IAS: Atrial septum appears intact. ANYA: No evidence of pericardial effusion. AO: Normal aortic root. PA: The peak pulmonary artery systolic pressure is estimated to be approximately 47 mmHg. Estimated right atrial pressure of 10 mmHg. SVn: Inferior vena cava shows <50% collapse with respiration consistent with elevated right atrial pressure. AV: No evidence of aortic valve regurgitation. A bovine valve is in the aortic position with post-deployment peak velocity of 3.32m/sec, mean gradient of 22mmHg and a calculated EMILE of 0.85cm2. MV: Structurally normal mitral valve. Mild mitral regurgitation. No evidence of mitral stenosis. Calcified posterior mitral annulus. Mild thickening of mitral valve leaflets. PV: The pulmonic valve is normal There is trace pulmonic regurgitation TV: Structurally normal tricuspid valve. Mild tricuspid regurgitation. ++++++++++++++++++++++++++++++++++++ MEASUREMENTS: ++++++++++++++++++++++++++++++++++++ DOPPLER LVOT LVOT TVI 18 cm LVOTpkPG 3 mmHg LVOTmnPG 2 mmHg LVOT CO 78.3 ml/s LVOTpkVel 89.1 cm/s (70-110)? ? ? LVOT SV 57 ml Index 27 ml/m? ? ? Right Atrium RA Press 10 mmHg AV Forward Flow AV mnVel 195 cm/s AV pkPG 38 mmHg AV mnPG 18 mmHg Area (TVI) 0.91 cm2 (3-5)* Index 0.431 cm? ? ?/m? ? ? AV TVI 61.9 cm Area (Wilbert) 0.9 cm2 (3-5)* AV pkVel 310 cm/s (100-170)? ? ? * MV Forward Flow MV pkE 165 cm/s (60-130)* MV E/A 3.1 MV pkA 52.4 cm/s MV DeTm 194 ms PV Forward Flow PV pkVel 104 cm/s (60-90)* PV pkPG 4 mmHg TV Regurg Flow TV pkVel 301 cm/s (30-70)? ? ? * TV pkPG 36 mmHg Right Ventricle RVsys P 46 mmHg Lat E' Lat e 9.34 cm/s Lat E/E' Lat E/e 17.7 Med E' Med e 4.11 cm/s Med E/E' Med E/e 40.1 AV DI Value 0.3 EMILE (VTI) Index Value 0.43 LV Mass 2D Value 292 g LV Mass Index 2D Value 138 g/m2 2D Left Ventricle LVIDd 5.14 cm (3.6-5.2) LVIDs 4.07 cm (2.3-3.9)* LVPW LVPWd 1.54 cm Ventricular Septum IVSd 1.18 cm Left Atrium LA a-p 5.2 cm (2.8-3.4)? ? ? * LVOT LVOT 2 cm Ratios IVS LA Biplane LAVol I BP 37.4 ml/m2 MMODE Left Atrium LAID 4.4 cm (1.9-4)* Index 2.09 cm/m? ? ? Ratios LA/Ao 1.22 (0.87-1.1)* Aorta Ao Rt 3.6 cm (2-3.7) Signed 05/14/2016 07:48 PM Amauri Pandey M.D. us Amauri Pandey MD ECHO Final Resul t documented in this encounter Visit Diagnoses Not on filedocumented in this encounter Care Teams Hose Builder Relationship Specialty [place] [address] [place] [address] [place] [address] PCP - General FAMILY PRACTICE 04/06/16 Amauri Pandey MD [place] Inspector And Unloader CARDIOVASCULAR DISEASE 04/06/16 12/28/23 documented as of this encounter
--- OUTSIDE RECORDS SUMMARY | 2024-09-03 19:16 | XMS_ITS | Encounter Summary ---
Author Organization [facility] Address [facility] [place] [address] [place] [address] Care Team Providers Care Quarry Equipment Operator Name Role Phone Piyush Pandey MD [facility] MD Primary Care Provider [phone] Reason for Referral * Specialty Diagnoses / Procedures Referred By Contac t Referred To Contact Diagnoses Dyspnea Piyush Pandey MD Referral ID Status Reason Start Date Expiration Date Visits Re quested Visits Authorized Encounter Details Date Type Department Care Team (Late st Contact Info) Description 04/07/2016 Orders Only [facility] [address] [place] [address] Piyush Pandey MD Social History Tobacco Use [...] st Contact Info) Description 09/25/2024 2:00 PM LOADING CHECKER Appointment [facility] [address] [place] [address] Zayra Powell, CHART SNATCHER [address] [place] [address] 10/16/2024 3:30 PM LOADING CHECKER Office Visit [facility] [address] [place] [address] Brit Gonzáles MD [address] [place] [address] documented as of this encounter Procedures Procedure Name Priority Date/Time Associated Diagnosis Comments PFT ORDER Routine 04/13/2016 Dyspnea documented in this encounter Results * [[id number]] PFT Order (04/13/2016) Piyush Pandey MD PROCEDURES-ORDERABLE NO DEONTE RGE Final Result documented in this encounter Visit Diagnoses Diagnosis Dyspnea- Primary Other dyspnea and respiratory abnormality documented in this encounter Care Teams Quarry Equipment Operator Relationship Specialty Start Date End Date Megan Infante MD [address] [place] [phone] PCP - General FAMILY PRACTICE 04/06/16 Piyush Pandey MD [place] Leather Grainer CARDIOVASCULAR DISEASE 04/06/16 12/28/23 documented as of this encounter
--- OUTSIDE RECORDS SUMMARY | 2024-09-03 19:16 | XMS_ITS | Encounter Summary ---
Author Organization [facility] Address [facility] [place] [place] [address] [place] [address] Care Team Providers Care Log Peeler Name Role Phone Piyush Pandey MD Unavailable Unavailabl Megan Leos MD Primary Care Provider [phone] Sharmila Davis APRN, FERMENTOLOGIST-C Unavailable [phone] Linda Block MD Unavailable [phone] Encounter Details Date Type Department Care Team (Late st Contact Info) Description 05/14/2016 Orders Only [place] [address] , Generic Conversion, Social History [...] (Late Contact Info) Description 09/25/2024 2:00 PM [address]PERATOR Appointment [facility] [address] [place] [address] Zayra Powell, DIRECTOR OF OPERATIONS [address] [place] [address] 10/16/2024 3:30 PM PLYCOR OPERATOR Office Visit [facility] [address] [place] [phone] Brit Gonzáles MD [address] [place] [address] documented as of this encounter Procedures Procedure Name Priority Date/Time Associated Diagnosis Comments POCT GLUCOSE - VALLECILLO DOCKED DEVICE Routine 05/14/2016 9:38 PM CDT documented in this encounter Results * (ABNORMAL) POCT glucose (05/14/2016 9:38 PM CDT) GLUCOSE POC 196(H) 70 - 109 05/15/2016 12:49 AM CDT [facility] ORDERS INTERFACE WHOLE BLOOD SPECIMEN / Unknown 05/14/2016 9:38 PM CDT 05/15/2016 12:49 AM CDT us Generic Conversion Md LANDRY POCT ORDERABLES - DEVIC E Final Result [facility] LAB ORDERS INTERFACE US documented in this encounter Visit Diagnoses Not on filedocumented in this encounter Care Teams Log Peeler Relationship Specialty Start Date End Date Megan Infante MD [address] [facility] [place] [phone] PCP - General FAMILY PRACTICE 04/06/16 Piyush Pandey MD [place] Docketing Specialist CARDIOVASCULAR DISEASE 04/06/16 12/28/23 Sharmila Davis APRN, FERMENTOLOGIST-C [address] [facility] [address] [place] [phone] NURSE PRACTITIONER 01/04/17 04/03/24 Linda Block MD [address] [facility] [address] [place] [phone] [place] Docketing Specialist CLINICAL CARDIAC ELECTROPHYSIOLOGY 02/08/17 04/12/23 documented as of this encounter
--- OUTSIDE RECORDS SUMMARY | 2024-09-03 19:16 | XMS_ITS | Encounter Summary ---
Author Organization [facility] Address [address] [place] [address]. [place] [address] [place] [address] Care Team Providers Care Information Systems Security Officer Name Role Phone Piyush Pandey MD [facility] Megan Bridges MD Primary Care Provider [phone] Encounter Details Date Type Department Care Team (Late st Contact Info) Description 04/07/2016 Scan [facility] [address] [place] [phone] Scanned, Documents Social History Tobacco Use [...] (Late Contact Info) Description 09/25/2024 2:00 PM OWNER/OPERATOR Appointment [facility] [address] [place] [address] Zayra Powell, NUCLEAR MEDICINE OFFICER [address] [place] [address] 10/16/2024 3:30 PM OWNER/OPERATOR Office Visit [facility] [address] [place] [phone] Brit Gonzáles MD [address] [place] [address] documented as of this encounter Visit Diagnoses Not on filedocumented in this encounter Care Teams Information Systems Security Officer Relationship Specialty Start Date End Date Megan Infante MD [address] [place] [address] PCP - General FAMILY PRACTICE 04/06/16 Piyush Pandey MD [place] Guinea Pig Breeder CARDIOVASCULAR DISEASE 04/06/16 12/28/23 documented as of this encounter
--- OUTSIDE RECORDS SUMMARY | 2024-09-03 19:16 | XMS_ITS | Encounter Summary ---
Author Organization [facility] Address [address] [place] [address]. [place] [address] [place] [address] Care Team Providers Care Company Dancer Name Role Phone Piyush Pandey MD, Amy E MD Primary Care Provider [phone] Encounter Details Date Type Department Care Team (Late st Contact Info) Description 05/14/2016 Orders Only [facility] [address] [place] [phone] Eun Landry MD Social History Tobacco Use Types Packs/Day [...] st Contact Info) Description 09/25/2024 2:00 PM JUNIOR ASSISTANT MANAGER Appointment [facility] [address] [place] [address] Zayra Powell, PULP GRINDER FEEDER [address] [place] [address] 10/16/2024 3:30 PM JUNIOR ASSISTANT MANAGER Office Visit [facility] [address] [place] [address] Brit Gonzáles MD [address] [place] [address] documented as of this encounter Procedures Procedure Name Priority Date/Time Associated Diagnosis Comments XR CHEST PA+LAT 05/14/2016 5:52 PM CDT documented in this encounter Results * XR CHEST PA+LAT (05/14/2016 5:52 PM CDT) Anatomical Region Laterality Modality Chest Radiographic Stephie ging 05/14/2016 5:52 PM CDT Narrative 05/14/2016 12:00 AM CDT [employer] ?? [place], [place] ?? Department of Radiology ? OBIE SIMS MD: ANURAG GAYTAN MD ?? Acct: [id number] ?? : 1955 Pt Type: ADM IN ?? Sex: M Ord Site: MAIN ? Study Date Accession # Procedure Code Procedure ?? 05/14/16 [id number] CXR2V XR Chest 2 View ? Signed ? Examination: Chest 2 view ? Exam time: 1707 ? Clinical history: Short of breath, pneumonia ? Comparison: 05/13/2016 ? Technique: AP and lateral chest ? Findings: Post midline sternotomy changes are noted with prosthetic valve in aortic position. ?? Cardiac silhouette remains abnormally enlarged. There is been slight interval decrease in ?? pulmonary vascular congestion and edema compared to previous study. Minor atelectasis with ?? small bilateral pleural effusions again demonstrated. The apical regions remain relatively ?? clear. ? IMPRESSION: ? 1. Cardiomegaly with slight interval decrease in pulmonary vascular congestion and edema ?? compared to previous study. ? Electronically Signed By: ABRIL MIRZA MD 05/14/161753 ? Dictated On: 05/14/161751 ?? Interpreted By: ABRIL MIRZA MD ?? Transcribed On: 05/14/161751 - INFCE ? CC: ? ANURAG GAYTAN MD ?? Procedure Note Eun Landry MD - 05/14/2016 [place], [place] Department of Radiology OBIE SIMS Ordering MD: ANURAG GAYTAN MD Acct: [id number] : 1955 Pt Type: ADM IN Sex: M Ord Site: MAIN Study Date Accession # Procedure Code Procedure 05/14/16 [id number] CXR2V XR Chest 2 View Signed Examination: Chest 2 view Exam time: 1707 Clinical history: Short of breath, pneumonia Comparison: 05/13/2016 Technique: AP and lateral chest Findings: Post midline sternotomy changes are noted with prosthetic valvein aortic position. Cardiac silhouette remains abnormally enlarged. There is been slightinterval decrease in pulmonary vascular congestion and edema compared to previous study. Minoratelectasis with small bilateral pleural effusions again demonstrated. The apical regionsremain relatively clear. IMPRESSION: 1. Cardiomegaly with slight interval decrease in pulmonary vascularcongestion and edema compared to previous study. Electronically Signed By: ABRIL MIRZA MD 05/14/161753 Dictated On: 05/14/161751 Interpreted By: ABRIL MIRZA MD Transcribed On: 05/14/161751 - INFCE CC: ANURAG GAYTAN MD us Generic Conversion Md [facility] Final R esult documented in this encounter Visit Diagnoses Not on filedocumented in this encounter Care Teams Company Dancer Relationship Specialty Start Date End Date Megan Infante MD [address] [place] [phone] PCP - General FAMILY PRACTICE 04/06/16 Piyush Pandey MD [place] Score Caller CARDIOVASCULAR DISEASE 04/06/16 12/28/23 documented as of this encounter
--- OUTSIDE RECORDS SUMMARY | 2024-09-03 19:16 | XMS_ITS | Encounter Summary ---
Author Organization [facility] Address [facility] [place] [address] [place] [address] Care Team Providers Care Rn Orthopaedics Name Role Phone Piyush Pandey MD Unavailable Unavailabl Megan Leos MD Primary Care Provider [phone] Sharmila Davis APRN, CHAIRMAN PRESIDENT AND CHIEF EXECUTIVE OFFICER-C Unavailable [phone] Linda Block MD Unavailable [phone] Encounter Details Date Type Department Care Team (Late st Contact Info) Description 05/13/2016 Orders Only [place] [address] , Generic Conversion, Social History [...] (Late Contact Info) Description 09/25/2024 2:00 PM SALES OPERATIONS ASSOCIATE Appointment [facility] [address] [place] [address] Zayra Powell, BINDER FIXER [address] [place] [address] 10/16/2024 3:30 PM SALES OPERATIONS ASSOCIATE Office Visit [facility] [address] Brit Gonzáles MD [address] [place] [address] documented as of this encounter Procedures Procedure Name Priority Date/Time Associated Diagnosis Comments POCT GLUCOSE - VALLECLILO DOCKED DEVICE Routine 05/13/2016 4:45 PM CDT documented in this encounter Results * (ABNORMAL) POCT glucose (05/13/2016 4:45 PM CDT) GLUCOSE POC 195(H) 70 - 109 05/13/2016 4:53 PM CDT [facility] LAB ORDERS INTERFACE WHOLE BLOOD SPECIMEN / Unknown 05/13/2016 4:45 PM CDT 05/13/2016 4:53 PM CDT us Generic Conversion Md [facility] POCT ORDERABLES - DEVIC E Final Result [facility] LAB ORDERS INTERFACE US documented in this encounter Visit Diagnoses Not on filedocumented in this encounter Care Teams Rn Orthopaedics Relationship Specialty Start Date End Date Megan Infante MD [address] [place] [phone] PCP - General FAMILY PRACTICE 04/06/16 Piyush Pandey MD [place] Mems Engineer CARDIOVASCULAR DISEASE 04/06/16 12/28/23 Sharmila Davis APRN, CHAIRMAN PRESIDENT AND CHIEF EXECUTIVE OFFICER-C [address] [facility] [address] [place] [address] NURSE PRACTITIONER 01/04/17 04/03/24 Linda Block MD 6[address] [facility] [address] [place] [phone] [place] Mems Engineer CLINICAL CARDIAC ELECTROPHYSIOLOGY 02/08/17 04/12/23 documented as of this encounter
--- OUTSIDE RECORDS SUMMARY | 2024-09-03 19:16 | XMS_ITS | Encounter Summary ---
Author Organization [facility] Address [address] [place] [address]. [place] [address] [place] [address] Care Team Providers Care Detective Private Eye Name Role Phone Piyush Pandey MD Unavailable Unavailabl Megan Leos MD Primary Care Provider [phone] Sharmila Davis APRN SENIOR CONTROL SYSTEMS ENGINEER-C Unavailable [phone] Linda Block MD Unavailable [phone] Encounter Details Date Type Department Care Team (Late st Contact Info) Description 04/03/[address] [facility] [address] [place] [address] Megan Infante MD [address] [place] [address] Social History Tobacco Use Types Packs/Day Years Used Date Smoking Tobacco: Former Sex and Gender Information Value Date Recorded Sex Assigned at Not on file Legal Sex Male 10:01 PM CDT Gender Identity Not on file Sexual Orientation Not on file documented as of this encounter Plan of Treatment Upcoming Encounters Date Type Department Care Team (Late st Contact Info) Description 09/25/2024 2:00 PM SEGMENTAL PAVER INSTALLER Appointment [facility] [address] [place] [address] Zayra Powell, TNT POWDER WORKER [address] [place] [address] 10/16/2024 3:30 PM SEGMENTAL PAVER INSTALLER Office Visit [facility] [place] [address] Brit Gonzáles MD [address] [place] [address] documented as of this encounter Visit Diagnoses Diagnosis Shortness of breath documented in this encounter Care Teams Detective Private Eye Relationship Specialty Start Date End Date Megan Infante MD [address] [place] [address] PCP - General FAMILY PRACTICE 04/06/16 Piyush Pandey MD [place] Pecan Picker CARDIOVASCULAR DISEASE 04/06/16 12/28/23 Sharmila Davis, FLUSH TESTER, SENIOR CONTROL SYSTEMS ENGINEER-C 619 [facility] [address] [place] [phone] NURSE PRACTITIONER 01/04/17 04/03/24 Linda Block MD 619 [facility] [address] [place] [phone] Post Machine Pecan Picker CLINICAL CARDIAC ELECTROPHYSIOLOGY 02/08/17 04/12/23 documented as of this encounter
--- OUTSIDE RECORDS SUMMARY | 2024-09-03 19:16 | XMS_ITS | Encounter Summary ---
Author Organization [facility] Address [facility] [place] [address] [place] [address] Care Team Providers Care Manager Commercial Sales Name Role Phone Piyush Pandey MD, Amy E MD Primary Care Provider [phone] Reason for Visit * Reason Onset Date Comments Advice 04/07/2016 Encounter Details Date Type Department Care Team ([facility] st Contact Info) Description 04/07/2016 Telephone [facility] [address] [place] [address] Sharmila Davis APRN, NP-C 619 [facility] [address] [place] [address] Advice Social History Tobacco Use Types Packs/Day [...] as of this encounter Progress Notes * STERLING Guillen - 04/09/2016 10:04 AM CDT Spoke with 's office, and they would like us to contact the patient to encourage compliance with the oxygen and sleep study evaluation. He had told them that his first aid teacher told him he didn't need the oxygen. I spoke with Mendez and informed him that his PCP is managing his oxygen, and he should comply with their recommendations. He reports that he doesn't wear it when he is sitting, butdoes when he gets up to move and at night. He also said he is planning on the sleep study on 04/20/16. He will follow up with Dr. Block for his atrial fibrillation. He verbalizes understanding. * Lavern Marley - 04/07/2016 11:52 AM CDT Cris from Dr. Infante's office called with questions about pt's oxygen, pft's and sleep study. Pt seems to think he doesn't need the oxygen and doesn't need the sleep study. Please call [phone]. If Cris is not available, any nurse can help. Clinic note of 04/06/16 faxed. documented in this encounter Plan of Treatment Upcoming Encounters Date Type Department Care Team (Late st Contact Info) Description 09/25/2024 2:00 PM PLASTIC TOOL MAKER Appointment [facility] [address] [place] [address] Zayra Powell WHITE HAT HACKER [address] [place] [address] 10/16/2024 3:30 PM PLASTIC TOOL MAKER Office Visit [facility] [address] [place] [phone] Brit Gonzáles MD [address] [place] [address] documented as of this encounter Visit Diagnoses Not on filedocumented in this encounter Care Teams Manager Commercial Sales Relationship Specialty Start Date End Date Megan Infante MD [address] [place] [phone] PCP - General FAMILY PRACTICE 04/06/16 Piyush Pandey MD [place] Forestry Extension Specialist CARDIOVASCULAR DISEASE 04/06/16 12/28/23 documented as of this encounter
--- OUTSIDE RECORDS SUMMARY | 2024-09-03 19:16 | XMS_ITS | Encounter Summary ---
Author Organization [facility] Address [address] [place] [address]. [place] [address] [place] [address] Care Team Providers Care Press Cutter Name Role Phone Piyush Pandey MD, Amy E MD Primary Care Provider [phone] Encounter Details Date Type Department Care Team (Late Contact Info) Description 05/12/2016 [facility] [address] [place] [phone] Scanned, Documents Social History Tobacco Use [...] (Late Contact Info) Description 09/25/2024 2:00 PM LION HUNTER Appointment [facility] [address] [place] [address] Zayra Powell, FLOUR BLENDER [address] [place] [address] 10/16/2024 3:30 PM LION HUNTER Office Visit [facility] [address] [place] [phone] Brit Gonzáles MD [address] [place] [address] documented as of this encounter Visit Diagnoses Not on filedocumented in this encounter Care Teams Press Cutter Relationship Specialty Start Date End Date Megan Infante MD [address] [facility] [place] [address] PCP - General FAMILY PRACTICE 04/06/16 Piyush Pandey MD [place] Comb Tender CARDIOVASCULAR DISEASE 04/06/16 12/28/23 documented as of this encounter
--- OUTSIDE RECORDS SUMMARY | 2024-09-03 19:16 | XMS_ITS | Encounter Summary ---
Author Organization [facility] Address [address] [place] [address]. [place] [address] [place] [address] Care Team Providers Care Accounting Administrator Name Role Phone Piyush Pandey MD [facility] Megan Bridges MD Primary Care Provider [phone] Encounter Details Date Type Department Care Team (Late st Contact Info) Description 04/22/2016 Scan [facility] [address] [place] [phone] Scanned, Documents Social History Tobacco Use [...] (Late Contact Info) Description 09/25/2024 2:00 PM BOWLING BALL GRADER Appointment [facility] [address] [place] [address] Zayra Powell, BARROW WORKER HELPER [address] [place] [address] 10/16/2024 3:30 PM BOWLING BALL GRADER Office Visit [facility] [address] [place] [phone] Brit Gonzáles MD [address] [place] [address] documented as of this encounter Visit Diagnoses Not on filedocumented in this encounter Care Teams Accounting Administrator Relationship Specialty Start Date End Date Megan Infante MD [address] [place] [address] PCP - General FAMILY PRACTICE 04/06/16 Piyush Pandey MD [place] Bacteriology Professor CARDIOVASCULAR DISEASE 04/06/16 12/28/23 documented as of this encounter
--- OUTSIDE RECORDS SUMMARY | 2024-09-03 19:16 | XMS_ITS | Encounter Summary ---
Author Organization [facility] Address [facility] [place] [address] [place] [address] Care Team Providers Care Claims Account Manager Name Role Phone Piyush Pandey MD Unavailable Unavailabl Megan Leos MD Primary Care Provider [phone] Sharmila Davis APRN, LURER-C Unavailable [phone] Linda Block MD Unavailable [phone] Encounter Details Date Type Department Care Team (Late st Contact Info) Description 05/15/2016 Orders Only [place] [address] , Generic Conversion, Social History [...] (Late Contact Info) Description 09/25/2024 2:00 PM CENTER SALES AND SERVICE ASSOCIATE Appointment [facility] [address] [place] [address] Zayra Powell, ESTIMATOR PRINTING [address] [place] [address] 10/16/2024 3:30 PM CENTER SALES AND SERVICE ASSOCIATE Office Visit [facility] [address] [place] [address] Brit Gonzáles MD 619 [place] [address] documented as of this encounter Procedures Procedure Name Priority Date/Time Associated Diagnosis Comments MAGNESIUM TIMED 05/15/2016 5:50 AM CDT documented in this encounter Results * MAGNESIUM (05/15/2016 5:50 AM CDT) MAGNESIUM 2.2 1.6 - 2.6 MG/DL 05/15/2016 6:50 AM CDT [facility] SERUM OR PLASMA SPECIMEN / Unknown 05/15/2016 5:50 AM CDT 05/15/2016 6:04 AM CDT us Generic Conversion Md [facility] Final R esult [facility] [address] [place] [address], [id number] documented in this encounter Visit Diagnoses Not on filedocumented in this encounter Care Teams Claims Account Manager Relationship Specialty Start Date End Date Megan Infante MD [address] [place] [address] PCP - General FAMILY PRACTICE 04/06/16 Piyush Pandey MD [place] Card Feeder CARDIOVASCULAR DISEASE 04/06/16 12/28/23 Sharmila Davis APRN, LURER-C [address] [phone] NURSE PRACTITIONER 01/04/17 04/03/24 Linda Block MD 619 [facility] [address] [address] [place] Card Feeder CLINICAL CARDIAC ELECTROPHYSIOLOGY 02/08/17 04/12/23 documented as of this encounter
--- OUTSIDE RECORDS SUMMARY | 2024-09-03 19:16 | XMS_ITS | Encounter Summary ---
Author Organization [facility] Address [facility], [id number] [facility] [place] [address] [place] [address] Care Team Providers Care Anesthesiology Physician Name Role Phone Piyush Pandey MD Unavailable Unavailabl Megan Leos MD Primary Care Provider [phone] Sharmila Davis APRN, TIE HACKER-C Unavailable [phone] Linda Block MD Unavailable [phone] Encounter Details Date Type Department Care Team (Late st Contact Info) Description 05/15/2016 Orders Only [place] [address] , Generic Conversion, Social History [...] (Late Contact Info) Description 09/25/2024 2:00 PM MANUFACTURING SUPERVISOR Appointment [facility] [address] [place] [address] Zayra Powell, SENIOR LIVING ADVISOR [address] [place] [address] 10/16/2024 3:30 PM MANUFACTURING SUPERVISOR Office Visit [facility] [phone] Brit Gonzáles MD [address] [place] [address] documented as of this encounter Procedures Procedure Name Priority Date/Time Associated Diagnosis Comments POCT GLUCOSE - VALLECILLO DOCKED DEVICE Routine 05/15/2016 8:27 AM CDT documented in this encounter Results * (ABNORMAL) POCT glucose (05/15/2016 8:27 AM CDT) GLUCOSE POC 152(H) 70 - 109 05/15/2016 8:53 AM CDT [facility] LAB ORDERS INTERFACE WHOLE BLOOD SPECIMEN / Unknown 05/15/2016 8:27 AM CDT 05/15/2016 8:53 AM CDT us Generic Conversion Md [facility] POCT ORDERABLES - DEVIC E Final Result [facility] LAB ORDERS INTERFACE US documented in this encounter Visit Diagnoses Not on filedocumented in this encounter Care Teams Anesthesiology Physician Relationship Specialty Start Date End Date Megan Infante MD [address] [facility] [place] [phone] PCP - General FAMILY PRACTICE 04/06/16 Piyush Pandey MD [place] Medicare Compliance Auditor CARDIOVASCULAR DISEASE 04/06/16 12/28/23 Sharmila Davis APRN, TIE HACKER-C 619 [facility] [address] [place] [address] NURSE PRACTITIONER 01/04/17 04/03/24 Linda Block MD 619 [facility] [address] [place] [phone] [place] Medicare Compliance Auditor CLINICAL CARDIAC ELECTROPHYSIOLOGY 02/08/17 04/12/23 documented as of this encounter
--- OUTSIDE RECORDS SUMMARY | 2024-09-03 19:16 | XMS_ITS | Encounter Summary ---
Author Organization [facility] Address [facility] [place] [address] [place] [address] Care Team Providers Care Stonehand Name Role Phone Piyush Pandey MD Unavailable Unavailabl Megan Leos MD Primary Care Provider [phone] Sharmila Davis APRN, HIGH SCHOOL FRENCH TEACHER-C Unavailable [phone] Linda Block MD Unavailable [phone] Encounter Details Date Type Department Care Team (Late st Contact Info) Description 05/13/2016 Orders Only [place] [address] , Generic Conversion, Social History [...] (Late Contact Info) Description 09/25/2024 2:00 PM DIVISION HUMAN RESOURCES MANAGER Appointment [facility] [address] [place] [address] Zayra Powell, FEATHEREDGER AND REDUCER MACHINE [address] [place] [address] 10/16/2024 3:30 PM DIVISION HUMAN RESOURCES MANAGER Office Visit [facility] [phone] Brit Gonzáles MD [address] [place] [address] documented as of this encounter Procedures Procedure Name Priority Date/Time Associated Diagnosis Comments PARTIAL THROMBOPLASTIN TIME,PTT STAT 05/13/2016 6:48 PM CDT documented in this encounter Results * PARTIAL THROMBOPLASTIN TIME,PTT (05/13/2016 6:48 PM CDT) PTT 28.6 22.0 - 35.0 SEC 05/13/2016 7:21 PM CDT [facility] PLASMA SPECIMEN / Unknown 05/13/2016 6:48 PM CDT 05/13/2016 6:57 PM CDT us Generic Conversion Md [facility] Final R esult [facility] [address] [place] [address], [id number] documented in this encounter Visit Diagnoses Not on filedocumented in this encounter Care Teams Stonehand Relationship Specialty Start Date End Date Megan Infante MD [address] [facility] [place] [address] PCP - General FAMILY PRACTICE 04/06/16 Piyush Pandey MD [place] Stone Cutter CARDIOVASCULAR DISEASE 04/06/16 12/28/23 Sharmila Davis APRN, HIGH SCHOOL FRENCH TEACHER-C [address] [address] NURSE PRACTITIONER 01/04/17 04/03/24 Linda Block MD [address] [address] [place] Stone Cutter CLINICAL CARDIAC ELECTROPHYSIOLOGY 02/08/17 04/12/23 documented as of this encounter
--- OUTSIDE RECORDS SUMMARY | 2024-09-03 19:16 | XMS_ITS | Encounter Summary ---
Author Organization [facility] Address [facility] [place] [address] [place] [address] Care Team Providers Care Satellite Installer Name Role Phone Piyush Pandey MD Unavailable Unavailabl Megan Leos MD Primary Care Provider [phone] Sharmila Davis APRN, STEAM HAMMER OPERATOR-C Unavailable [phone] Linda Blcok MD Unavailable [phone] Encounter Details Date Type Department Care Team (Late st Contact Info) Description 05/14/2016 Orders [place] [address] , Generic Conversion, Social History [...] (Late Contact Info) Description 09/25/2024 2:00 PM ROOMING HOUSE INSPECTOR Appointment [facility] [address] [place] [address] Zayra Powell, DELTA SYSTEM FREIGHT CAR CLEANER [address] [place] [address] 10/16/2024 3:30 PM ROOMING HOUSE INSPECTOR Office Visit [facility] [place] [address] Brit Gonzáles MD [address] [place] [address] documented as of this encounter Procedures Procedure Name Priority Date/Time Associated Diagnosis Comments POCT GLUCOSE - VALLECILLO DOCKED DEVICE Routine 05/14/2016 12:25 AM CDT documented in this encounter Results * (ABNORMAL) POCT glucose (05/14/2016 12:25 AM CDT) GLUCOSE POC 252(H) 70 - 109 05/14/2016 12:29 AM CDT [facility] LAB ORDERS INTERFACE WHOLE BLOOD SPECIMEN / Unknown 05/14/2016 12:25 AM CDT 05/14/2016 12:28 AM CDT us Generic Conversion Md LANDR[facility] POCT ORDERABLES - DEVIC E Final Result [facility] LAB ORDERS INTERFACE US documented in this encounter Visit Diagnoses Not on filedocumented in this encounter Care Teams Satellite Installer Relationship Specialty Start Date End Date Megan Infante MD [address] [facility] [place] [phone] PCP - General FAMILY PRACTICE 04/06/16 Piyush Pandey MD [place] Pigment Pumper CARDIOVASCULAR DISEASE 04/06/16 12/28/23 Sharmila Davis APRN, STEAM HAMMER OPERATOR-C 619 [facility] [address] [place] [phone] NURSE PRACTITIONER 01/04/17 04/03/24 Linda Block MD 6[address] [facility] [address] [place] [address] [place] Pigment Pumper CLINICAL CARDIAC ELECTROPHYSIOLOGY 02/08/17 04/12/23 documented as of this encounter
--- OUTSIDE RECORDS SUMMARY | 2024-09-03 19:16 | XMS_ITS | Encounter Summary ---
Author Organization [facility] Address [facility] [address] [place] [address] Care Team Providers Care Envelope Sealing Machine Operator Name Role Phone Piyush Pandey MD Unavailable Unavailabl Megan Leos MD Primary Care Provider [phone] Sharmila Davis APRN, POSTULANT-C Unavailable [phone] Linda Block MD Unavailable [phone] Encounter Details Date Type Department Care Team (Late st Contact Info) Description 05/13/2016 Orders Only [place] [address] , Generic Conversion, Social History [...] (Late Contact Info) Description 09/25/2024 2:00 PM SUPERVISOR RESEARCH SHOP Appointment [facility] [address] [place] [address] Zayra Powell, DRUG ABUSE TREATMENT SPECIALIST [address] [place] [address] 10/16/2024 3:30 PM SUPERVISOR RESEARCH SHOP Office Visit [facility] [place] [address] Brit Gonzáles MD 6[address] [place] [address] documented as of this encounter Procedures Procedure Name Priority Date/Time Associated Diagnosis Comments POCT GLUCOSE - VALLECILLO DOCKED DEVICE Routine 05/13/2016 8:27 PM CDT documented in this encounter Results * (ABNORMAL) POCT glucose (05/13/2016 8:27 PM CDT) GLUCOSE POC 262(H) 70 - 109 05/13/2016 9:52 PM CDT [facility] ORDERS INTERFACE WHOLE BLOOD SPECIMEN / Unknown 05/13/2016 8:27 PM CDT 05/13/2016 9:51 PM CDT us Generic Conversion Md LANDRY POCT ORDERABLES - DEVIC E Final Result [facility] ORDERS INTERFACE US documented in this encounter Visit Diagnoses Not on filedocumented in this encounter Care Teams Envelope Sealing Machine Operator Relationship Specialty Start Date End Date Megan Infante MD [address] [place] [address] PCP - General FAMILY PRACTICE 04/06/16 Piyush Pandey MD [place] Keno Terminal Operator CARDIOVASCULAR DISEASE 04/06/16 12/28/23 Sharmila Davis APRN, POSTULANT-C 619 [facility] [address] [place] [address] NURSE PRACTITIONER 01/04/17 04/03/24 Linda Block MD [address] [facility] [address] [place] [address] [place] Keno Terminal Operator CLINICAL CARDIAC ELECTROPHYSIOLOGY 02/08/17 04/12/23 documented as of this encounter
--- OUTSIDE RECORDS SUMMARY | 2024-09-03 19:16 | XMS_ITS | Encounter Summary ---
Author Organization [facility] Address [facility] [place] [address] [place] [address] Care Team Providers Care Folder Stitcher Operator Name Role Phone Piyush Pandey MD Unavailable Unavailabl Megan Leos MD Primary Care Provider [phone] Sharmila Davis APRN, DEAN OF STUDENTS-C Unavailable [phone] Linda Block MD Unavailable [phone] Encounter Details Date Type Department Care Team (Late st Contact Info) Description 05/14/2016 Orders [place] [address] , Generic Conversion, Social History [...] (Late Contact Info) Description 09/25/2024 2:00 PM [address]ACLE TRUER Appointment [facility] [address] [place] [address] Zayra Powell, DEVELOPMENTAL PSYCHOLOGIST [address] [place] [address] 10/16/2024 3:30 PM SPECTACLE TRUER Office Visit [facility] [address] [place] [address] Brit Gonzáles MD 619 [place] [address] documented as of this encounter Procedures Procedure Name Priority Date/Time Associated Diagnosis Comments BASIC METABOLIC PANEL Routine 05/14/2016 3:35 AM CDT documented in this encounter Results * (ABNORMAL) BASIC METABOLIC PANEL (05/14/2016 3:35 AM CDT) SODIUM S/P/B 139 135 - 147 MMOL/L 05/14/2016 4:12 AM CDT [facility] POTASSIUM S/P/B 3.5 3.5 - 5.0 MMOL/L 05/14/2016 4:12 AM CDT [facility] CHLORIDE S/P/B 103 98 - 107 MMOL/L 05/14/2016 4:12 AM CDT [facility] CO2 27.2 22 - 29 MMOL/L 05/14/2016 4:12 AM CDT [facility] GLUCOSE 190(H) 70 - 109 MG/DL 05/14/2016 4:12 AM CDT [facility] BUN 16 8 - 26 MG/DL 05/14/2016 4:12 AM CDT [facility] CREATININE S/P/B 1.12 0.70 - 1.30 MG/DL 05/14/2016 4:12 AM CDT [facility] CALCIUM S/P/B 8.8 8.8 - 10.0 MG/DL 05/14/2016 4:12 AM CDT [facility] EGFR NON-AFR. AMER. 67 >60 ML/MIN/1.7 3 M2 05/14/2016 4:12 AM CDT [facility] EGFR AFR. AMER. 81 >60 ML/MIN/1.7 3 M2 05/14/2016 4:12 AM CDT [facility] ANION GAP 8.8 MMOL/L 05/14/2016 4:12 AM CDT [facility] OSMOLALITY (CALC) 284 MOSM/KG 05/14/2016 4:12 AM CDT [facility] PLASMA SPECIMEN / Unknown 05/14/2016 3:35 AM CDT 05/14/2016 3:42 AM CDT us Generic Conversion Md [facility] Final R esult [facility] [address] [place] [address], [id number] documented in this encounter Visit Diagnoses Not on filedocumented in this encounter Care Teams Folder Stitcher Operator Relationship Specialty Start Date End Date Megan Infante MD [address] [place] [address] PCP - General FAMILY PRACTICE 04/06/16 Piyush Pandey MD Waves Activity Assistant CARDIOVASCULAR DISEASE 04/06/16 12/28/23 Sharmila Davis APRN, DEAN OF STUDENTS-C [address] [facility] [address] [place] [address] NURSE PRACTITIONER 01/04/17 04/03/24 Linda Block MD 619 [facility] [address] [place] [address] Waves Activity Assistant CLINICAL CARDIAC ELECTROPHYSIOLOGY 02/08/17 04/12/23 documented as of this encounter
--- OUTSIDE RECORDS SUMMARY | 2024-09-03 19:16 | XMS_ITS | Encounter Summary ---
Author Organization [facility] Address Replaced by [facility] [place] [address] [place] [address] Care Team Providers Care Gas Pumping Station Helper Name Role Phone Piyush Pandey MD Unavailable Unavailabl Megan Leos MD Primary Care Provider [phone] Sharmila Davis APRN, INSPECTOR AGRICULTURAL COMMODITIES-C Unavailable [phone] Linda Block MD Unavailable [phone] Encounter Details Date Type Department Care Team (Late st Contact Info) Description 05/17/2016 Orders Only [place] [address] , Generic Conversion, Social History [...] (Late Contact Info) Description 09/25/2024 2:00 PM NICKEL PLANT OPERATOR Appointment [facility] [address] [place] [address] Zayra Powell, DIET ASSISTANT [address] [place] [address] 10/16/2024 3:30 PM NICKEL PLANT OPERATOR Office Visit [facility] [address] [place] [address] Brit Gonzáles MD 619 [place] [address] documented as of this encounter Procedures Procedure Name Priority Date/Time Associated Diagnosis Comments BASIC METABOLIC PANEL TIMED 05/17/2016 4:16 AM CDT documented in this encounter Results * (ABNORMAL) BASIC METABOLIC PANEL (05/17/2016 4:16 AM CDT) SODIUM S/P/B 139 135 - 147 MMOL/L 05/17/2016 5:04 AM CDT [facility] POTASSIUM S/P/B 3.7 3.5 - 5.0 MMOL/L 05/17/2016 5:04 AM CDT [facility] CHLORIDE S/P/B 101 98 - 107 MMOL/L 05/17/2016 5:04 AM CDT [facility] CO2 30.1(H) 22 - 29 MMOL/L 05/17/2016 5:04 AM CDT [facility] GLUCOSE 183(H) 70 - 109 MG/DL 05/17/2016 5:04 AM CDT [facility] BUN 19 8 - 26 MG/DL 05/17/2016 5:04 AM CDT [facility] CREATININE S/P/B 1.14 0.70 - 1.30 MG/DL 05/17/2016 5:04 AM CDT [facility] CALCIUM S/P/B 9.3 8.8 - 10.0 MG/DL 05/17/2016 5:04 AM CDT [facility] EGFR NON-AFR. AMER. 65 >60 ML/MIN/1.7 3 M2 05/17/2016 5:04 AM CDT [facility] EGFR AFR. AMER. 79 >60 ML/MIN/1.7 3 M2 05/17/2016 5:04 AM CDT [facility] ANION GAP 7.9 MMOL/L 05/17/2016 5:04 AM CDT [facility] OSMOLALITY (CALC) 284 MOSM/KG 05/17/2016 5:04 AM CDT [facility] PLASMA SPECIMEN / Unknown 05/17/2016 4:16 AM CDT 05/17/2016 4:22 AM CDT us Generic Conversion Md [facility] Final R esult [facility] [place] [address], [id number] documented in this encounter Visit Diagnoses Not on filedocumented in this encounter Care Teams Gas Pumping Station Helper Relationship Specialty Start Date End Date Megan Infante MD [address] [place] [place] [address] PCP - General FAMILY PRACTICE 04/06/16 Piyush Pandey MD [place] Installation Technician CARDIOVASCULAR DISEASE 04/06/16 12/28/23 Sharmila Davis, BLANKET CUTTER HAND, INSPECTOR AGRICULTURAL COMMODITIES-C [address] [facility] [address] [place] [address] NURSE PRACTITIONER 01/04/17 04/03/24 Linda Block MD 619 [facility] [address] [place] [address] [place] Installation Technician CLINICAL CARDIAC ELECTROPHYSIOLOGY 02/08/17 04/12/23 documented as of this encounter
--- OUTSIDE RECORDS SUMMARY | 2024-09-03 19:16 | XMS_ITS | Encounter Summary ---
Author Organization [facility] Address [facility]6 [facility] [place] [address] [place] [address] Care Team Providers Care Peer Support Specialist Name Role Phone Piyush Pandey MD Unavailable Unavailabl Megan Leos MD Primary Care Provider [phone] Sharmila Davis APRN, INGOT CAR OPERATOR-C Unavailable [phone] Linda Block MD Unavailable [phone] Encounter Details Date Type Department Care Team (Late st Contact Info) Description 05/17/2016 Orders Only [place] [address] , Generic Conversion, Social History [...] (Late Contact Info) Description 09/25/2024 2:00 PM FOUR H CLUB AGENT Appointment [facility] [address] [place] [address] Zayra Powell, TRIMMER HAND [address] [place] [address] 10/16/2024 3:30 PM FOUR H CLUB AGENT Office Visit [facility] [place] [address] Brit Gonzáles MD 619 [place] [address] documented as of this encounter Procedures Procedure Name Priority Date/Time Associated Diagnosis Comments PROTHROMBIN TIME, VENOUS TIMED 05/17/2016 4:15 AM CDT documented in this encounter Results * (ABNORMAL) PROTIME/INR, VENOUS (05/17/2016 4:15 AM CDT) PROTIME 17.2(H) 11.6 - 14.3 SEC 05/17/2016 4:46 AM CDT [facility] INR 1.4(H) 0.9 - 1.1 05/17/2016 4:46 AM CDT [facility] 05/17/2016 4:15 AM CDT 05/17/2016 4:22 AM CDT us Generic Conversion Md [facility] Final R esult [facility] [address] [place] [address], [id number] documented in this encounter Visit Diagnoses Not on filedocumented in this encounter Care Teams Peer Support Specialist Relationship Specialty Start Date End Date Megan Infante MD [address] [place] [address] PCP - General FAMILY PRACTICE 04/06/16 Piyush Pandey MD [place] Curriculum And Instruction Specialist CARDIOVASCULAR DISEASE 04/06/16 12/28/23 Sharmila Davis APRN, INGOT CAR OPERATOR-C [address] [place] [address] [address] [place] [address] NURSE PRACTITIONER 01/04/17 04/03/24 Linda Blokc MD [address] [facility] [address] [place] [address] [place] Curriculum And Instruction Specialist CLINICAL CARDIAC ELECTROPHYSIOLOGY 02/08/17 04/12/23 documented as of this encounter
--- OUTSIDE RECORDS SUMMARY | 2024-09-03 19:16 | XMS_ITS | Encounter Summary ---
Author Organization [facility] Address [facility] [place] [address] [place] [address] Care Team Providers Care Spray Stainer Name Role Phone Piyush Pandey MD Unavailable Unavailabl Megan Leos MD Primary Care Provider [phone] Sharmila Davis APRN, RN TRAVEL-C Unavailable [phone] Linda Block MD Unavailable [phone] Encounter Details Date Type Department Care Team (Late st Contact Info) Description 05/13/2016 Orders [place] [address] , Generic Conversion, Social History [...] (Late Contact Info) Description 09/25/2024 2:00 PM WORD PROCESSING SPECIALIST Appointment [facility] [address] [place] [address] Zayra Powell, FIELD REPRESENTATIVE/HEALTH EDUCATION [address] [place] [address] 10/16/2024 3:30 PM WORD PROCESSING SPECIALIST Office Visit [facility] [address] [place] [address] Brit Gonzáles MD 619 [place] [address] documented as of this encounter Procedures Procedure Name Priority Date/Time Associated Diagnosis Comments MRSA SCREENING Nurse Collected Priority 05/13/2016 4:45 PM CDT documented in this encounter Results * MRSA SCREENING (05/13/2016 4:45 PM CDT) SPECIMEN SOURCE RESPIRATORY, NOSE 05/13/2016 4:43 PM CDT [facility] MRSA BY PCR NASAL METHICILLIN RESISTANT STAPH AUREUS NOT DETECTED 05/14/2016 12:38 PM CDT [facility] 05/13/2016 4:45 PM CDT 05/14/2016 7:19 AM CDT us Generic Conversion Md LANDRY MICROBIOLOGY - GENERAL ORDERABLES Final Result [facility] [address] [place] [address], [id number] documented in this encounter Visit Diagnoses Not on filedocumented in this encounter Care Teams Spray Stainer Relationship Specialty Start Date End Date Megan Infante MD [address] [place] [address] PCP - General FAMILY PRACTICE 04/06/16 Piyush Pandey MD [place] Block Handler CARDIOVASCULAR DISEASE 04/06/16 12/28/23 Sharmila Davis APRN, RN TRAVEL-C [address] [place] [address] [address] [place] [address] NURSE PRACTITIONER 01/04/17 04/03/24 Linda Block MD [address] [place] [address] Mcguffey Block Handler CLINICAL CARDIAC ELECTROPHYSIOLOGY 02/08/17 04/12/23 documented as of this encounter
--- OUTSIDE RECORDS SUMMARY | 2024-09-03 19:16 | XMS_ITS | Encounter Summary ---
Author Organization [facility] Address [facility] [place] [address] [place] [address] Care Team Providers Care Requirements Engineer Name Role Phone Piyush Pandey MD Unavailable Unavailabl Megan Leos MD Primary Care Provider [phone] Sharmila Davis APRN, CIRCLE BEVELER-C Unavailable [phone] Linda Block MD Unavailable [phone] Encounter Details Date Type Department Care Team (Late st Contact Info) Description 05/13/2016 Orders Only [place] [address] , Generic Conversion, Social History [...] Contact Info) Description 09/25/2024 2:00 PM S[address]IOR ESTIMATOR Appointment [facility] [address] [place] [address] Zayra Powell, BIOGEOGRAPHER [address] [place] [address] 10/16/2024 3:30 PM SENIOR ESTIMATOR Office Visit [facility] [place] [address] Brit Gonzáles MD 619 [place] [address] documented as of this encounter Procedures Procedure Name Priority Date/Time Associated Diagnosis Comments PROTHROMBIN TIME, VENOUS STAT 05/13/2016 6:48 PM CDT documented in this encounter Results * (ABNORMAL) PROTIME/INR, VENOUS (05/13/2016 6:48 PM CDT) PROTIME 15.9(H) 11.6 - 14.3 SEC 05/13/2016 7:20 PM CDT [facility] INR 1.2(H) 0.9 - 1.1 05/13/2016 7:20 PM CDT [facility] 05/13/2016 6:48 PM CDT 05/13/2016 6:57 PM CDT us Generic Conversion Md [facility] Final R esult [facility] [address] [place] [address], [id number] documented in this encounter Visit Diagnoses Not on filedocumented in this encounter Care Teams Requirements Engineer Relationship Specialty Start Date End Date Megan Infante MD [address] [facility] [place] [address] PCP - General FAMILY PRACTICE 04/06/16 Piyush Pandey MD [place] Ampoule Sealer CARDIOVASCULAR DISEASE 04/06/16 12/28/23 Sharmila Davis APRN, CIRCLE BEVELER-C [address] [place] [address] [address] [place] [address] NURSE PRACTITIONER 01/04/17 04/03/24 Linda Block MD [address] [facility] [address] [place] [address] [place] Ampoule Sealer CLINICAL CARDIAC ELECTROPHYSIOLOGY 02/08/17 04/12/23 documented as of this encounter
--- OUTSIDE RECORDS SUMMARY | 2024-09-03 19:16 | XMS_ITS | Encounter Summary ---
Author Organization [facility] Address [address] [place] [address]. [place] [address] [place] [address] Care Team Providers Care Fur Remodeler Name Role Phone Unavailable Primary Care Provider Unavailabl e Encounter Details Date Type Department Care Team (Late st Contact Info) Description 04/05/2016 Abstract [facility] 619 [place] [address] Sharmila Davis, DANNY, GRADE RECORDER-C [address] [facility] [address] [place] [address] Social History Tobacco Use Types Packs/Day Years [...] st Contact Info) Description 09/25/2024 2:00 PM COMBINATION WELDER Appointment [facility] [address] [place] [address] Zayra Powell, MECHANICS SUPERVISOR [address] [place] [address] 10/16/2024 3:30 PM COMBINATION WELDER Office Visit [facility] [address] [place] [address] Brit Gonzáles MD 6[address] [place], [place] [address] documented as of this encounter Visit Diagnoses Not on filedocumented in this encounter
--- OUTSIDE RECORDS SUMMARY | 2024-09-03 19:16 | XMS_ITS | Encounter Summary ---
Author Organization [facility] Address [facility] [place] [address] [place] [address] Care Team Providers Care Freight Booker Name Role Phone Piyush Pandey MD Unavailable Unavailabl Megan Leos MD Primary Care Provider [phone] Sharmila Davis APRN, AUTOMATIC GLUING MACHINE OPERATOR-C Unavailable [phone] Linda Block MD Unavailable [phone] Encounter Details Date Type Department Care Team (Late st Contact Info) Description 05/16/2016 Orders [place] [address] , Generic Conversion, Social History [...] (Late Contact Info) Description 09/25/2024 2:00 PM NURSE INFORMATICIST Appointment [facility] [address] [place] [address] Zayra Powell, GOLD PROSPECTOR [address] [place] [address] 10/16/2024 3:30 PM NURSE INFORMATICIST Office Visit [facility] [address] [place] [address] Brit Gonzáles MD 619 [place] [address] documented as of this encounter Procedures Procedure Name Priority Date/Time Associated Diagnosis Comments BASIC METABOLIC PANEL TIMED 05/16/2016 5:08 AM CDT documented in this encounter Results * (ABNORMAL) BASIC METABOLIC PANEL (05/16/2016 5:08 AM CDT) SODIUM S/P/B 139 135 - 147 MMOL/L 05/16/2016 6:04 AM CDT [facility] POTASSIUM S/P/B 3.7 3.5 - 5.0 MMOL/L 05/16/2016 6:04 AM CDT [facility] CHLORIDE S/P/B 100 98 - 107 MMOL/L 05/16/2016 6:04 AM CDT [facility] CO2 31.8(H) 22 - 29 MMOL/L 05/16/2016 6:04 AM CDT [facility] GLUCOSE 137(H) 70 - 109 MG/DL 05/16/2016 6:04 AM CDT [facility] BUN 18 8 - 26 MG/DL 05/16/2016 6:04 AM CDT [facility] CREATININE S/P/B 1.02 0.70 - 1.30 MG/DL 05/16/2016 6:04 AM CDT [facility] CALCIUM S/P/B 9.3 8.8 - 10.0 MG/DL 05/16/2016 6:04 AM CDT [facility] EGFR NON-AFR. AMER. 74 >60 ML/MIN/1.7 3 M2 05/16/2016 6:04 AM CDT [facility] EGFR AFR. AMER. 90 >60 ML/MIN/1.7 3 M2 05/16/2016 6:04 AM CDT [facility] ANION GAP 7.2 MMOL/L 05/16/2016 6:04 AM CDT [facility] OSMOLALITY (CALC) 282 MOSM/KG 05/16/2016 6:04 AM CDT [facility] PLASMA SPECIMEN / Unknown 05/16/2016 5:08 AM CDT 05/16/2016 5:25 AM CDT us Generic Conversion Md [facility] Final R esult [facility] [place] [place] [address], [id number] documented in this encounter Visit Diagnoses Not on filedocumented in this encounter Care Teams Freight Booker Relationship Specialty Start Date End Date Megan Infante MD [address] [facility] [place] [phone] PCP - General FAMILY PRACTICE 04/06/16 Piyush Pandey MD [place] Skills Trainer CARDIOVASCULAR DISEASE 04/06/16 12/28/23 Sharmila Davis, AUTOMOTIVE MANAGER, AUTOMATIC GLUING MACHINE OPERATOR-C [address] [facility] [address] [place] [address] NURSE PRACTITIONER 01/04/17 04/03/24 Linda Block MD [address] [facility] [address] [place] [address] [place] Skills Trainer CLINICAL CARDIAC ELECTROPHYSIOLOGY 02/08/17 04/12/23 documented as of this encounter
--- OUTSIDE RECORDS SUMMARY | 2024-09-03 19:16 | XMS_ITS | Encounter Summary ---
Author Organization [facility] Address [address] [place] [address]. [place] [address] [place] [address] Care Team Providers Care Market Development Director Name Role Phone Piyush Pandey MD, Amy E MD Primary Care Provider [phone] Encounter Details Date Type Department Care Team (Late st Contact Info) Description 04/07/2016 Orders Only [facility] [address] [place] [address] Piyush Pandey MD Social History Tobacco Use [...] st Contact Info) Description 09/25/2024 2:00 PM [place] GOLD ATTENDANT Appointment [facility] [address] [place] [address] Zayra Powell, FAMILY SUPPORT WORKER [address] [place] [address] 10/16/2024 3:30 PM [place] GOLD ATTENDANT Office Visit [facility] [address] [place] [phone] Brit Gonzáles MD [address] [place] [address] documented as of this encounter Visit Diagnoses Not on filedocumented in this encounter Care Teams Market Development Director Relationship Specialty Start Date End Date Megan Infante MD [address] [place] [address] PCP - General FAMILY PRACTICE 04/06/16 Piyush Pandey MD [place] Ambulette Driver CARDIOVASCULAR DISEASE 04/06/16 12/28/23 documented as of this encounter
--- OUTSIDE RECORDS SUMMARY | 2024-09-03 19:16 | XMS_ITS | Encounter Summary ---
Author Organization [facility] Address [facility] [place] [address] [place] [address] Care Team Providers Care Tablet Repair Name Role Phone Piyush Pandey MD, Amy E MD Primary Care Provider [phone] Reason for Visit * Reason Onset Date Comments Appointment Request 04/06/2016 Encounter Details Date Type Department Care Team (Late st Contact Info) Description 04/06/2016 Telephone [facility] [address] [place] [address] Sharmila Davis APRN, NP-C [address] [facility] [address] [place] [address] Appointment Request Social History Tobacco Use Types [...] encounter Progress Notes * Lavern Marley - 04/07/2016 8:51 AM CDT Pt notified of lab results and PFT on 04/13/16 @ 1:30. Also confirmed with [facility]. * STERLING Guillen - 04/06/2016 5:15 PM CDT Attempted to call Mr. Lay. His lab results were stable, continue current meds. [facility] called and they can advance his PFT appointment to 04/13/16 at 1:30pm. Please let them know if jakob make this appointment. documented in this encounter Plan of Treatment Upcoming Encounters Date Type Department Care Team (Late st Contact Info) Description 09/25/2024 2:00 PM ACCESS LEAD Appointment [facility] [address] [facility] [place] [address] Zayra Powell, [facility] [address] [facility] [place] [address] 10/16/2024 3:30 PM ACCESS LEAD Office Visit [facility] [address] [facility] [address] [place] [phone] Brit Gonzáles MD [address]19 [place] [address] documented as of this encounter Visit Diagnoses Not on filedocumented in this encounter Care Teams Tablet Repair Relationship Specialty Start Date End Date Megan Infante MD [address] [place] [address] PCP - General FAMILY PRACTICE 04/06/16 Piyush Pandey MD [place] Truck Guard CARDIOVASCULAR DISEASE 04/06/16 12/28/23 documented as of this encounter
--- OUTSIDE RECORDS SUMMARY | 2024-09-03 19:16 | XMS_ITS | Encounter Summary ---
Author Organization [facility] Address [facility] [place] [address] [place] [address] Care Team Providers Care Arboriculturist Name Role Phone Piyush Pandey MD Unavailable Unavailabl Megan Leos MD Primary Care Provider [phone] Sharmila Davis APRN, ENTERPRISE ACCOUNT MANAGER-C Unavailable [phone] Linda Block MD Unavailable [phone] Encounter Details Date Type Department Care Team (Late st Contact Info) Description 05/14/2016 Orders Only [place] [address] , Generic Conversion, Social History [...] (Late Contact Info) Description 09/25/2024 2:00 PM CALENDER WIND UP TENDER Appointment [facility] [address] [place] [address] Zayra Powell, PROCUREMENT ACCOUNTANT [address] [place] [address] 10/16/2024 3:30 PM CALENDER WIND UP TENDER Office Visit [facility] [place] [address] Brit Gonzáles MD [address] [place] [address] documented as of this encounter Procedures Procedure Name Priority Date/Time Associated Diagnosis Comments PHOSPHORUS, INORGANIC PHOSPHATE Routine 05/14/2016 3:35 AM CDT documented in this encounter Results * PHOSPHORUS, INORGANIC PHOSPHATE (05/14/2016 3:35 AM CDT) PHOSPHORUS 3.2 2.2 - 4.2 MG/DL 05/14/2016 4:12 AM CDT [facility] SERUM OR PLASMA SPECIMEN / Unknown 05/14/2016 3:35 AM CDT 05/14/2016 3:42 AM CDT us Generic Conversion Md [facility] Final R esult [facility] [address] [place] [address], [id number] documented in this encounter Visit Diagnoses Not on filedocumented in this encounter Care Teams Arboriculturist Relationship Specialty Start Date End Date Megan Infante MD [address] [place] [phone] PCP - General FAMILY PRACTICE 04/06/16 Piyush Pandey MD [place] [employer] Worker CARDIOVASCULAR DISEASE 04/06/16 12/28/23 Sharmial Davis APRN, ENTERPRISE ACCOUNT MANAGER-C [address] [place] [address] NURSE PRACTITIONER 01/04/17 04/03/24 Linda Block MD [id number] [place] [phone] [employer] Worker CLINICAL CARDIAC ELECTROPHYSIOLOGY 02/08/17 04/12/23 documented as of this encounter
--- OUTSIDE RECORDS SUMMARY | 2024-09-03 19:16 | XMS_ITS | Encounter Summary ---
Author Organization [facility] Address [facility] [place] [address] [place] [address] Care Team Providers Care Multiple Knife Edge Trimmer Operator Name Role Phone Piyush Pandey MD Unavailable UnavailMegan Rodriguez MD Primary Care Provider [phone] Sharmila Davis APRN, DISC RECORDIST-C Unavailable Linda Block MD Unavailable [phone] Encounter Details Date Type Department Care Team (Latest Contact Info) Description 05/13/2016 Abstract [facility] Social History Tobacco Use [...] st Contact Info) Description 09/25/2024 2:00 PM CLASSROOM TECHNOLOGY TECHNICIAN Appointment [facility] [address] [place] [address] Zayra Powell, ACQUISITION ASSOCIATE [address] [place] [address] 10/16/2024 3:30 PM CLASSROOM TECHNOLOGY TECHNICIAN Office Visit [facility] [address] [place] [address] Brit Gonzáles MD [address] [place] [address] documented as of this encounter Visit Diagnoses Not on filedocumented in this encounter Care Teams Multiple Knife Edge Trimmer Operator Relationship Specialty Start Date End Date Megan Infante MD [address] [facility] [place] [phone] PCP - General FAMILY PRACTICE 04/06/16 Piyush Pandey MD [place] [employer] Office Manager CARDIOVASCULAR DISEASE 04/06/16 12/28/23 Sharmila Davis APRN, DISC RECORDIST-C [address] [facility] [address] [place] [address] NURSE PRACTITIONER 01/04/17 04/03/24 Linda Block MD [address] [facility] [address] [phone] [employer] Office Manager CLINICAL CARDIAC ELECTROPHYSIOLOGY 02/08/17 04/12/23 documented as of this encounter
--- OUTSIDE RECORDS SUMMARY | 2024-09-03 19:16 | XMS_ITS | Encounter Summary ---
Author Organization [facility] Address [facility] [place] [address] [place] [address] Care Team Providers Care Immigration Guard Name Role Phone Piyush Pandey MD Unavailable Unavailabl Megan Leos MD Primary Care Provider [phone] Sharmila Davis APRN, HEAT PLANT SPECIALIST-C Unavailable [phone] Linda Block MD Unavailable [phone] Encounter Details Date Type Department Care Team (Late st Contact Info) Description 05/14/2016 Orders Only [place] [address] , Generic Conversion, Social History [...] (Late Contact Info) Description 09/25/2024 2:00 PM MECHANICAL RELIABILITY ENGINEER Appointment [facility] [address] [place] [address] Zayra Powell, FORGESMITH [address] [place] [address] 10/16/2024 3:30 PM MECHANICAL RELIABILITY ENGINEER Office Visit [facility] [address] [place] [address] Brit Gonzáles MD [address] [place] [address] documented as of this encounter Procedures Procedure Name Priority Date/Time Associated Diagnosis Comments POCT GLUCOSE - VALLECILLO DOCKED DEVICE Routine 05/14/2016 5:33 AM CDT documented in this encounter Results * (ABNORMAL) POCT glucose (05/14/2016 5:33 AM CDT) GLUCOSE POC 197(H) 70 - 109 05/14/2016 5:37 AM CDT [facility] ORDERS INTERFACE WHOLE BLOOD SPECIMEN / Unknown 05/14/2016 5:33 AM CDT 05/14/2016 5:37 AM CDT us Generic Conversion Md [facility] POCT ORDERABLES - DEVIC E Final Result [facility] LAB ORDERS INTERFACE US documented in this encounter Visit Diagnoses Not on filedocumented in this encounter Care Teams Immigration Guard Relationship Specialty Start Date End Date Megan Infante MD [address] [facility] [place] [phone] PCP - General FAMILY PRACTICE 04/06/16 Piyush Pandey MD [place] Dado Operator CARDIOVASCULAR DISEASE 04/06/16 12/28/23 Sharmila Davis APRN, HEAT PLANT SPECIALIST-C 619 [facility] 47 [place] [address] NURSE PRACTITIONER 01/04/17 04/03/24 Linda Block MD 619 [facility] [address] [place] [address] [place] Dado Operator CLINICAL CARDIAC ELECTROPHYSIOLOGY 02/08/17 04/12/23 documented as of this encounter
--- OUTSIDE RECORDS SUMMARY | 2024-09-03 19:16 | XMS_ITS | Encounter Summary ---
Author Organization [facility] Address [address] [place] [address]. [place] [address] [place] [address] Care Team Providers Care Porcelain Slusher Name Role Phone Piyush Pandey MD Unavailable Unavailabl Megan Leos MD Primary Care Provider [phone] Sharmila Davis APRN LEADITE WORKER-C Unavailable [phone] Linda Block MD Unavailable [phone] Encounter Details Date Type Department Care Team (Late st Contact Info) Description 05/04/[address] [facility] [address] [place] [address] Megan Infante MD [address] [place] [address] Social History Tobacco Use Types Packs/Day [...] (Late Contact Info) Description 09/25/2024 2:00 PM BASEBALL GLOVE SHAPER Appointment [facility] [address] [place] [address] Zayra Powell, HOISTING ENGINE OPERATOR [address] [place] [address] 10/16/2024 3:30 PM BASEBALL GLOVE SHAPER [facility] [address] [place] [address] Brit Gonzáles MD 619 [place] [address] documented as of this encounter Visit Diagnoses Diagnosis Cough documented in this encounter Care Teams Porcelain Slusher Relationship Specialty Start Date End Date Megan Infante MD [address] [place] [address] PCP - General FAMILY PRACTICE 04/06/16 Piyush Pandey MD [place] Cooler Operator CARDIOVASCULAR DISEASE 04/06/16 12/28/23 Sharmila Davis APRN, LEADITE WORKER-C 619 [facility] [address] [place] [address] NURSE PRACTITIONER 01/04/17 04/03/24 Linda Block MD 619 [facility] [address] [place] [address] [place] Cooler Operator CLINICAL CARDIAC ELECTROPHYSIOLOGY 02/08/17 04/12/23 documented as of this encounter
--- OUTSIDE RECORDS SUMMARY | 2024-09-03 19:16 | XMS_ITS | Encounter Summary ---
Author Organization [facility] Address [facility] [place] [address] [place] [address] Care Team Providers Care Travel Pt Name Role Phone Piyush Pandey MD Unavailable Unavailabl Megan Leos MD Primary Care Provider [phone] Sharmila Davis APRN, PATIENT TRANSPORTATION DRIVER-C Unavailable [phone] Linda Block MD Unavailable [phone] Encounter Details Date Type Department Care Team (Late st Contact Info) Description 05/14/2016 Orders [place] [address] , Generic Conversion, Social History [...] (Late Contact Info) Description 09/25/2024 2:00 PM FINANCIAL RECRUITER Appointment [facility] [address] [place] [address] Zayra Powell, READING ASSISTANT [address] [place] [address] 10/16/2024 3:30 PM FINANCIAL RECRUITER Office Visit [facility] [place] [address] Brit Gonzáles MD [address] [place] [address] documented as of this encounter Procedures Procedure Name Priority Date/Time Associated Diagnosis Comments POCT GLUCOSE - VALLECILLO DOCKED DEVICE Routine 05/14/2016 10:13 AM CDT documented in this encounter Results * (ABNORMAL) POCT glucose (05/14/2016 10:13 AM CDT) GLUCOSE POC 190(H) 70 - 109 05/14/2016 1:14 PM CDT [facility] LAB ORDERS INTERFACE WHOLE BLOOD SPECIMEN / Unknown 05/14/2016 10:13 AM CDT 05/14/2016 1:14 PM CDT us Generic Conversion Md [facility] POCT ORDERABLES - DEVIC E Final Result [facility] LAB ORDERS INTERFACE US documented in this encounter Visit Diagnoses Not on filedocumented in this encounter Care Teams Travel Pt Relationship Specialty Start Date End Date Megan Infante MD [address] [place] [phone] PCP - General FAMILY PRACTICE 04/06/16 Piyush Pandey MD [place] Office Machine Punch Operator CARDIOVASCULAR DISEASE 04/06/16 12/28/23 Sharmila Davis APRN, PATIENT TRANSPORTATION DRIVER-C [address] [facility] [address] [place] [address] NURSE PRACTITIONER 01/04/17 04/03/24 Linda Block MD 619 [facility] [address] [place] [address] [place] Office Machine Punch Operator CLINICAL CARDIAC ELECTROPHYSIOLOGY 02/08/17 04/12/23 documented as of this encounter
--- OUTSIDE RECORDS SUMMARY | 2024-09-03 19:16 | XMS_ITS | Encounter Summary ---
Author Organization [facility] Address [facility] [place] [address] [place] [address] Care Team Providers Care Postal Carrier Name Role Phone Piyush Pandey MD Unavailable Unavailabl Megan Leos MD Primary Care Provider [phone] Sharmila Davis APRN, PLANNING AIDE-C Unavailable [phone] Linda Block MD Unavailable [phone] Encounter Details Date Type Department Care Team (Late st Contact Info) Description 05/16/2016 Orders Only ROSALES CONVERSION [place], [...] (Late Contact Info) Description 09/25/2024 2:00 PM MACHINE SPLITTER Appointment [facility] [address] [place] [address] Zayra Powell, BOOSTER PLANT OPERATOR [address] [place] [address] 10/16/2024 3:30 PM MACHINE SPLITTER Office Visit [facility] [address] [place] [address] Brit Gonzáles MD [address] [place] [address] documented as of this encounter Procedures Procedure Name Priority Date/Time Associated Diagnosis Comments POCT GLUCOSE - VALLECILLO DOCKED DEVICE Routine 05/16/2016 12:38 PM CDT documented in this encounter Results * (ABNORMAL) POCT glucose (05/16/2016 12:38 PM CDT) GLUCOSE POC 260(H) 70 - 109 05/16/2016 1:24 PM CDT [facility] LAB ORDERS INTERFACE WHOLE BLOOD SPECIMEN / Unknown 05/16/2016 12:38 PM CDT 05/16/2016 1:24 PM CDT us Generic Conversion Md [facility] POCT ORDERABLES - DEVIC E Final Result [facility] ORDERS INTERFACE US documented in this encounter Visit Diagnoses Not on filedocumented in this encounter Care Teams Postal Carrier Relationship Specialty Start Date End Date Megan Infante MD [address] [facility] [place] [phone] PCP - General FAMILY PRACTICE 04/06/16 Piyush Pandey MD [employer] Manager CARDIOVASCULAR DISEASE 04/06/16 12/28/23 Sharmila Davis APRN, PLANNING AIDE-C 619 [facility] 47 [place] [address] NURSE PRACTITIONER 01/04/17 04/03/24 Linda Block MD 619 [facility] [address] [place] [address] [employer] Manager CLINICAL CARDIAC ELECTROPHYSIOLOGY 02/08/17 04/12/23 documented as of this encounter
--- OUTSIDE RECORDS SUMMARY | 2024-09-03 19:16 | XMS_ITS | Encounter Summary ---
Author Organization [facility] Address [facility] [place] [address] [place] [address] Care Team Providers Care Framing Specialist Name Role Phone Piyush Pandey MD Unavailable UnavailMegan Rodriguez MD Primary Care Provider [phone] Sharmila aDvis APRN, SHUTTLE HAND-C Unavailable Linda Block MD Unavailable [phone] Encounter Details Date Type Department Care Team (Latest Contact Info) Description 05/13/2016 Abstract [facility] Medical Group Shashi Philip MD [address] [id number] Social History Tobacco Use Types Packs/Day Years [...] Contact Info) Description 09/25/2024 2:00 PM GAS DISPATCHER Appointment [facility] [address] [place] [address] Zayra Powell, SANE RN [address] [place] [address] 10/16/2024 3:30 PM GAS DISPATCHER Office Visit [facility] [place] [address] Brit Gonzáles MD [address] [place] [address] documented as of this encounter Procedures Procedure Name Priority Date/Time Associated Diagnosis Comments PRV ONLY-RESTING TWELVE LEAD EKG Routine 05/13/2016 6:55 PM CDT documented in this encounter Results * PRV ONLY-RESTING TWELVE LEAD EKG (05/13/2016 6:55 PM CDT) 05/13/2016 6:55 PM CDT 05/13/2016 6:55 PM CDT Narrative [facility] TO EPIC CONVERSION - 05/15/2016 6:57 AM CDT [facility] ? [address] [place], [place] ??[address] ? Test Date: ?2016-05-13 Pat Name: ? OBIE SIMS ?Department: ?? 1 ? Room: ? ICUA Gender: ? Male ? Mounted Police Officer: ?? LUIS F PERAZA : ?1955 ? Requested By: SHASHI PHILIP Order Number: [id number] ? Reading : ?? Esteban Samano ? Measurements Intervals ?[place] ? Rate: ? 79 ? P: ? SC: ? 0 ?QRS: ?-10 QRSD: ? 140 ?T: ?145 QT: ? 426 ? QTc: ?489 ? Interpretive Statements ATRIAL FIBRILLATION INTRAVENTRICULAR CONDUCTION DELAY POSSIBLE ANTERIOR MYOCARDIAL INFARCTION, OF INDETERMINATE AGE Procedure Note Eun Tovar MD - 06/17/2018 [facility] [address] [place] [address] Test Date: 2016-05-13 Pat Name: OBIE SIMS Department: 1 Room: ICUA Gender: Male Mounted Police Officer: LUIS F PERAZA : 1955 Requested By: SHASHI PHILIP Order Number: [id number] Reading MD: Esteban Samano Measurements Intervals [place] Rate: 79 P: SC: 0 QRS: -10 QRSD: 140 T: 145 QT: 426 QTc: 489 Interpretive Statements ATRIAL FIBRILLATION INTRAVENTRICULAR CONDUCTION DELAY POSSIBLE ANTERIOR MYOCARDIAL INFARCTION, OF INDETERMINATE AGE us Shashi Philip MD ECHO Final Result [facility] TO EPIC CONVERSION documented in this encounter Visit Diagnoses Not on filedocumented in this encounter Care Teams Framing Specialist Relationship Specialty Start Date End Date Megan Infante MD [address] [facility] [place] [address] PCP - General FAMILY PRACTICE 04/06/16 Piyush Pandey MD [place] [employer] Manager CARDIOVASCULAR DISEASE 04/06/16 12/28/23 Sharmila Davis, PIN ATTACHER, SHUTTLE HAND-C [address] [facility] [address] [place] [phone] NURSE PRACTITIONER 01/04/17 04/03/24 Linda Block MD [address] [facility] [address] [place] [address] [place] [employer] Manager CLINICAL CARDIAC ELECTROPHYSIOLOGY 02/08/17 04/12/23 documented as of this encounter
--- OUTSIDE RECORDS SUMMARY | 2024-09-03 19:16 | XMS_ITS | Encounter Summary ---
Author Organization [facility] Address [facility] hospital6 [facility] [place] [address] [place] [address] Care Team Providers Care Hammersmith Helper Name Role Phone Piyush Pandey MD Unavailable Unavailabl Megan Leos MD Primary Care Provider [phone] Sharmila Davis APRN, MUSICAL INSTRUMENT MAKER-C Unavailable [phone] Linda Block MD Unavailable [phone] Encounter Details Date Type Department Care Team (Late st Contact Info) Description 05/14/2016 Orders Only [place] [address] , Generic Conversion, Social History [...] (Late Contact Info) Description 09/25/2024 2:00 PM TRANSPORTATION CLERK Appointment [facility] [address] [place] [address] Zayra Powell, PROGRAM DIRECTOR [address] [place] [address] 10/16/2024 3:30 PM TRANSPORTATION CLERK Office Visit [facility] [address] [place] [address] Brit Gonzáles MD 619 [place] [address] documented as of this encounter Procedures Procedure Name Priority Date/Time Associated Diagnosis Comments CBC W/DIFF AUTOMATED Routine 05/14/2016 3:35 AM CDT documented in this encounter Results * (ABNORMAL) CBC W/DIFF AUTOMATED (05/14/2016 3:35 AM CDT) WBC 10.6 4.0 - 10.8 x10'3/uL 05/14/2016 3:49 AM CDT [facility] RBC 3.45(L) 4.50 - 6.10 x10'6/uL 05/14/2016 3:49 AM CDT [facility] HGB 10.0(L) 13.0 - 18.0 G/DL 05/14/2016 3:49 AM CDT [facility] HCT 30.6(L) 37.0 - 52.0 % 05/14/2016 3:49 AM CDT [facility] MCV 88.7 78.0 - 100.0 FL 05/14/2016 3:49 AM CDT [facility] MCH 29.0 27.0 - 31.0 PG 05/14/2016 3:49 AM CDT [facility] MCHC 32.7(L) 33.0 - 36.0 G/DL 05/14/2016 3:49 AM CDT [facility] RDW 15.6(H) 11.5 - 14.5 % 05/14/2016 3:49 AM CDT [facility] PLT 200 150 - 350 x10'3/uL 05/14/2016 3:49 AM CDT [facility] MPV 10.3 7.4 - 10.4 FL 05/14/2016 3:49 AM CDT [facility] ABS. NEUTROPHILS TOTAL 9.21(H) 1.60 - 8.30 x10'3/uL 05/14/2016 3:49 AM CDT [facility] ABS. LYMPHOCYTES 0.48(L) 0.80 - 4.70 x10'3/uL 05/14/2016 3:49 AM CDT [facility] ABS. MONOCYTES 0.87 0.00 - 1.50 x10'3/uL 05/14/2016 3:49 AM CDT [facility] ABS. EOSINOPHILS 0.00 0.00 - 0.40 x10'3/uL 05/14/2016 3:49 AM CDT [facility] ABS. BASOPHILS 0.01 0.00 - 0.20 x10'3/uL 05/14/2016 3:49 AM CDT [facility] ABS. IMMATURE GRANULOCYTES 0.06(H) 0.00 - 0.03 x10'3/uL 05/14/2016 3:49 AM CDT [facility] ABS. NUCLEATED RBC'S 0.00 0.0 x10'3/uL 05/14/2016 3:49 AM CDT [facility] PLASMA SPECIMEN / Unknown 05/14/2016 3:35 AM CDT 05/14/2016 3:43 AM CDT us Generic Conversion Md [facility] Final R esult [facility] [place] [address], [id number] documented in this encounter Visit Diagnoses Not on filedocumented in this encounter Care Teams Hammersmith Helper Relationship Specialty Start Date End Date Megan Infante MD [address] [place] [address] PCP - General FAMILY PRACTICE 04/06/16 Piyush Pandey MD [place] Taxi Proprietor CARDIOVASCULAR DISEASE 04/06/16 12/28/23 Sharmila Davis APRN, MUSICAL INSTRUMENT MAKER-C [address] [facility] [address] [place] [address] NURSE PRACTITIONER 01/04/17 04/03/24 Linda Block MD [address] [place] [facility] [address] [place] [phone] [place] Taxi Proprietor CLINICAL CARDIAC ELECTROPHYSIOLOGY 02/08/17 04/12/23 documented as of this encounter
--- OUTSIDE RECORDS SUMMARY | 2024-09-03 19:16 | XMS_ITS | Encounter Summary ---
Author Organization [facility] Address Formerly [facility], later [facility] [place] [address] [place] [address] Care Team Providers Care Memory Care Program Resident Name Role Phone Piyush Pandey MD Unavailable Unavailabl Megan Leos MD Primary Care Provider [phone] Sharmila Davis APRN, GRADUATE ADVISOR-C Unavailable [phone] Linda Block MD Unavailable [phone] Encounter Details Date Type Department Care Team (Late st Contact Info) Description 05/13/2016 Orders [place] [address] , Generic Conversion, Social History [...] (Late Contact Info) Description 09/25/2024 2:00 PM ASSEMBLER TYPE BAR AND SEGMENT Appointment [facility] [address] [place] [address] Zayra Powell, UNMANNED EQUIPMENT OPERATOR [address] [place] [address] 10/16/2024 3:30 PM ASSEMBLER TYPE BAR AND SEGMENT Office Visit [facility] [address] [place] [address] Brit Gonzáles MD [address] [place] [address] documented as of this encounter Procedures Procedure Name Priority Date/Time Associated Diagnosis Comments CBC W/DIFF AUTOMATED STAT 05/13/2016 6:48 PM CDT documented in this encounter Results * (ABNORMAL) CBC W/DIFF AUTOMATED (05/13/2016 6:48 PM CDT) WBC 10.8 4.0 - 10.8 x10'3/uL 05/13/2016 7:07 PM CDT [facility] RBC 4.16(L) 4.50 - 6.10 x10'6/uL 05/13/2016 7:07 PM CDT [facility] HGB 11.8(L) 13.0 - 18.0 G/DL 05/13/2016 7:07 PM CDT [facility] HCT 36.9(L) 37.0 - 52.0 % 05/13/2016 7:07 PM CDT [facility] MCV 88.7 78.0 - 100.0 FL 05/13/2016 7:07 PM CDT [facility] MCH 28.4 27.0 - 31.0 PG 05/13/2016 7:07 PM CDT [facility] MCHC 32.0(L) 33.0 - 36.0 G/DL 05/13/2016 7:07 PM CDT [facility] RDW 15.7(H) 11.5 - 14.5 % 05/13/2016 7:07 PM CDT [facility] PLT 238 150 - 350 x10'3/uL 05/13/2016 7:07 PM CDT [facility] MPV 10.2 7.4 - 10.4 FL 05/13/2016 7:07 PM CDT [facility] ABS. NEUTROPHILS TOTAL 10.25(H) 1.60 - 8.30 x10'3/uL 05/13/2016 7:07 PM CDT [facility] ABS. LYMPHOCYTES 0.30(L) 0.80 - 4.70 x10'3/uL 05/13/2016 7:07 PM CDT [facility] ABS. MONOCYTES 0.20 0.00 - 1.50 x10'3/uL 05/13/2016 7:07 PM CDT [facility] ABS. EOSINOPHILS 0.00 0.00 - 0.40 x10'3/uL 05/13/2016 7:07 PM CDT [facility] ABS. BASOPHILS 0.01 0.00 - 0.20 x10'3/uL 05/13/2016 7:07 PM CDT [facility] ABS. IMMATURE GRANULOCYTES 0.08(H) 0.00 - 0.03 x10'3/uL 05/13/2016 7:07 PM CDT [facility] ABS. NUCLEATED RBC'S 0.00 0.0 x10'3/uL 05/13/2016 7:07 PM CDT [facility] PLASMA SPECIMEN / Unknown 05/13/2016 6:48 PM CDT 05/13/2016 6:57 PM CDT us Generic Conversion Md [facility] Final R esult [facility] [place] [place] [address], [id number] documented in this encounter Visit Diagnoses Not on filedocumented in this encounter Care Teams Memory Care Program Resident Relationship Specialty Start Date End Date Megan Infante MD [address] [place] [address] PCP - General FAMILY PRACTICE 04/06/16 Piyush Pandey MD [place] Supervisor [place]chard CARDIOVASCULAR DISEASE 04/06/16 12/28/23 Sharmila Davis APRN, GRADUATE ADVISOR-C [address] [facility] [address] [place] [address] NURSE PRACTITIONER 01/04/17 04/03/24 Linda Block MD [address] [facility] [address] [place] [phone] [place] Supervisor [place]chard CLINICAL CARDIAC ELECTROPHYSIOLOGY 02/08/17 04/12/23 documented as of this encounter
--- OUTSIDE RECORDS SUMMARY | 2024-09-03 19:16 | XMS_ITS | Encounter Summary ---
Author Organization [facility] Address [facility]6 [place] [address] [place] [address] Care Team Providers Care Black Jack Dealer Name Role Phone Piyush Pandey MD Unavailable Unavailabl Megan Leos MD Primary Care Provider [phone] Sharmila Davis APRN, TIRE WORKER-C Unavailable [phone] Linda Block MD Unavailable [phone] Encounter Details Date Type Department Care Team (Late st Contact Info) Description 05/16/2016 Orders [place] [address] , Generic Conversion, Social History [...] (Late Contact Info) Description 09/25/2024 2:00 PM CHEMIST HELPER Appointment [facility] [address] [place] [address] Zayra Powell, OVEN OPERATOR [address] [place] [address] 10/16/2024 3:30 PM CHEMIST HELPER Office Visit [facility] [address] [place] [address] Brit Gonzáles MD [address] [place] [address] documented as of this encounter Procedures Procedure Name Priority Date/Time Associated Diagnosis Comments POCT GLUCOSE - VALLECILLO DOCKED DEVICE Routine 05/16/2016 8:05 AM CDT documented in this encounter Results * (ABNORMAL) POCT glucose (05/16/2016 8:05 AM CDT) GLUCOSE POC 154(H) 70 - 109 05/16/2016 11:58 PM CDT [facility] ORDERS INTERFACE WHOLE BLOOD SPECIMEN / Unknown 05/16/2016 8:05 AM CDT 05/16/2016 11:57 PM CDT us Generic Conversion Md [facility] POCT ORDERABLES - DEVIC E Final Result [facility] ORDERS INTERFACE US documented in this encounter Visit Diagnoses Not on filedocumented in this encounter Care Teams Black Jack Dealer Relationship Specialty Start Date End Date Megan Infante MD [address] [facility] [place] [phone] PCP - General FAMILY PRACTICE 04/06/16 Piyush Pandey MD [employer] Cash Poster CARDIOVASCULAR DISEASE 04/06/16 12/28/23 Sharmila Davis APRN, TIRE WORKER-C [address] [facility] [address] [place] [address] NURSE PRACTITIONER 01/04/17 04/03/24 Linda Block MD [address] [facility] [address] [place] [phone] [employer] Cash [employer]er CLINICAL CARDIAC ELECTROPHYSIOLOGY 02/08/17 04/12/23 documented as of this encounter
--- OUTSIDE RECORDS SUMMARY | 2024-09-03 19:16 | XMS_ITS | Encounter Summary ---
Author Organization [facility] Address [address] [place] [address] [address] [place] [address] Care Team Providers Care [place]ell Operator Name Role Phone Piyush Pandey MD [facility] Megan Bridges MD Primary Care Provider [phone] Reason for Visit * Reason Onset Date Comments Results 05/13/2016 Encounter Details Date Type Department Care Team (Late Contact Info) Description 05/13/2016 Telephone [facility] [address] [address] Piyush Pandey MD Results Social History Tobacco [...] st Contact Info) Description 09/25/2024 2:00 PM VACUUM PLASTIC FORMING MACHINE OPERATOR Appointment [facility] [address] [place] [address] Zayra Powell, CHIEF AIRLINE RADIO OPERATOR [address] [place] [address] 10/16/2024 3:30 PM VACUUM PLASTIC FORMING MACHINE OPERATOR Office Visit [facility] [address] [place] [phone] Brit Gonzáles MD [address] [place] [address] documented as of this encounter Visit Diagnoses Not on filedocumented in this encounter Care Teams Brownell Operator Relationship Specialty Start Date End Date Megan Infante MD [address] [facility] [place] [address] PCP - General FAMILY PRACTICE 04/06/16 Piyush Pandey MD [place] Software Validation Engineer CARDIOVASCULAR DISEASE 04/06/16 12/28/23 documented as of this encounter
--- OUTSIDE RECORDS SUMMARY | 2024-09-03 19:16 | XMS_ITS | Encounter Summary ---
Author Organization [facility] Address Formerly [facility], [facility]6 [facility] [place] [address] [place] [address] Care Team Providers Care Die Engraver Name Role Phone Piyush Pandey MD Unavailable Unavailabl Megan Leos MD Primary Care Provider [phone] Sharmila Davis APRN, MOTOR RUNNER-C Unavailable [phone] Linda Block MD Unavailable [phone] Encounter Details Date Type Department Care Team (Late st Contact Info) Description 05/15/2016 Orders [place] [address] , Generic Conversion, Social History [...] (Late Contact Info) Description 09/25/2024 2:00 PM LEAN SPECIALIST Appointment [facility] [address] [place] [address] Zayra Powell, AUTO PAINTER HELPER [address] [place] [address] 10/16/2024 3:30 PM LEAN SPECIALIST Office Visit [facility] [address] [place] [address] Brit Gonzáles MD 6[address] [place] [address] documented as of this encounter Procedures Procedure Name Priority Date/Time Associated Diagnosis Comments BASIC METABOLIC PANEL TIMED 05/15/2016 5:50 AM CDT documented in this encounter Results * (ABNORMAL) BASIC METABOLIC PANEL (05/15/2016 5:50 AM CDT) SODIUM S/P/B 139 135 - 147 MMOL/L 05/15/2016 6:[address] [facility] POTASSIUM S/P/B 3.8 3.5 - 5.0 MMOL/L 05/15/2016 6:[address] [facility] CHLORIDE S/P/B 101 98 - 107 MMOL/L 05/15/2016 6:[address] [facility] CO2 29.7(H) 22 - 29 MMOL/L 05/15/2016 6:[address] [facility] GLUCOSE 174(H) 70 - 109 MG/DL 05/15/2016 6:[address] [facility] BUN 20 8 - 26 MG/DL 05/15/2016 6:[address] [facility] CREATININE S/P/B 1.19 0.70 - 1.30 MG/DL 05/15/2016 6:[address] [facility] CALCIUM S/P/B 8.9 8.8 - 10.0 MG/DL 05/15/2016 6:[address] [facility] EGFR NON-AFR. AMER. 62 >60 ML/MIN/1.7 3 M2 05/15/2016 6:[address] [facility] EGFR AFR. AMER. 75 >60 ML/MIN/1.7 3 M2 05/15/2016 6:[address] [facility] ANION GAP 8.3 MMOL/L 05/15/2016 6:[address] [facility] OSMOLALITY (CALC) 284 MOSM/KG 05/15/2016 6:[address] [facility] PLASMA SPECIMEN / Unknown 05/15/2016 5:50 AM CDT 05/15/2016 6:04 AM CDT us Generic Conversion Md [facility] Final R esult [facility] [address] [place] [address], [id number] documented in this encounter Visit Diagnoses Not on filedocumented in this encounter Care Teams Die Engraver Relationship Specialty Start Date End Date Megan Infante MD [address] [place] [phone] PCP - General FAMILY PRACTICE 04/06/16 Piyush Pandey MD [place] Outsole Compressor CARDIOVASCULAR DISEASE 04/06/16 12/28/23 Sharmila Davis, MOSAIC LAYER, MOTOR RUNNER-C [address] [facility] [address] [place] [address] NURSE PRACTITIONER 01/04/17 04/03/24 Linda Block MD [address] [facility] [address] [place] [address] [employer] [place] Outsole Compressor CLINICAL CARDIAC ELECTROPHYSIOLOGY 02/08/17 04/12/23 documented as of this encounter
--- OUTSIDE RECORDS SUMMARY | 2024-09-03 19:16 | XMS_ITS | Encounter Summary ---
Author Organization [facility] Address [address] [place] [address]. [place] [address] [place] [address] Care Team Providers Care Director Of Transportation Name Role Phone Piyush Pandey MD Unavailable Unavailabl e Megan Infante MD Primary Care Provider [phone] Sharmila Davis APRN, TEXTILE ARTIST-C Unavailable Linda Block MD Unavailable [phone] Encounter Details Date Type Department Care Team (Late st Contact Info) Description 05/13/2016 Abstract [facility] [address] [place] [address] Kyle Pop MD Musinipally, Sunil, MD [address] [place] [address] Social History Tobacco Use Types Packs/Day Years [...] st Contact Info) Description 09/25/2024 2:00 PM INFORMATICS CONSULTANT Appointment [facility] [address] [place] [address] Zayra Powell, PUBLIC RELATIONS ACCOUNT SUPERVISOR [address] [place] [facility] 10/16/2024 3:30 PM INFORMATICS CONSULTANT Office Visit [facility] [address] [place] [address] Brit Gonzáles MD 6[address] [place] [address] documented as of this encounter Visit Diagnoses Diagnosis Acute on chronic diastolic congestive heart failure ([facility]) Acute on chronic diastolic heart failure documented in this encounter Care Teams Director Of Transportation Relationship Specialty Start Date End Date Megan Infante MD [address] [place] [phone] PCP - General FAMILY PRACTICE 04/06/16 Piyush Pandey MD [place] Sales Audit Clerk CARDIOVASCULAR DISEASE 04/06/16 12/28/23 Sharmila Davis APRN, TEXTILE ARTIST-C [address] [facility] [address] [place] [address] NURSE PRACTITIONER 01/04/17 04/03/24 Linda Block MD [address] [facility] [address] [place] [address] [place] Sales Audit Clerk CLINICAL CARDIAC ELECTROPHYSIOLOGY 02/08/17 04/12/23 documented as of this encounter
--- OUTSIDE RECORDS SUMMARY | 2024-09-03 19:16 | XMS_ITS | Encounter Summary ---
Author Organization [facility] Address [facility] [place] [address] [place] [address] Care Team Providers Care Chronic Disease Epidemiologist Name Role Phone Piyush Pandey MD Unavailable Unavailabl Megan Leos MD Primary Care Provider [phone] Sharmila Davis APRN, EXHIBITION CARVER-C Unavailable [phone] Linda Block MD Unavailable [phone] Encounter Details Date Type Department Care Team (Late st Contact Info) Description 05/13/2016 Orders Only [place] [address] , Generic Conversion, Social History [...] (Late Contact Info) Description 09/25/2024 2:00 PM FERRYBOAT OPERATOR HELPER Appointment [facility] [address] [place] [address] Zayra Powell, CAR MECHANIC HELPER [address] [place] [address] 10/16/2024 3:30 PM FERRYBOAT OPERATOR HELPER Office Visit [facility] [address] [place] [address] Brit Gonzáles MD 619 [place] [address] documented as of this encounter Procedures Procedure Name Priority Date/Time Associated Diagnosis Comments COMPREHENSIVE METABOLIC PANEL STAT 05/13/2016 6:48 PM CDT documented in this encounter Results * (ABNORMAL) COMPREHENSIVE METABOLIC PANEL (05/13/2016 6:48 PM CDT) SODIUM S/P/B 141 135 - 147 MMOL/L 05/13/2016 7:33 PM CDT [facility] POTASSIUM S/P/B 4.2 3.5 - 5.0 MMOL/L 05/13/2016 7:33 PM CDT [facility] CHLORIDE S/P/B 103 98 - 107 MMOL/L 05/13/2016 7:33 PM CDT [facility] CO2 23.8 22 - 29 MMOL/L 05/13/2016 7:33 PM CDT [facility] GLUCOSE 213(H) 70 - 109 MG/DL 05/13/2016 7:33 PM CDT [facility] BUN 13 8 - 26 MG/DL 05/13/2016 7:33 PM CDT [facility] CREATININE S/P/B 1.14 0.70 - 1.30 MG/DL 05/13/2016 7:33 PM CDT [facility] CALCIUM S/P/B 9.9 8.8 - 10.0 MG/DL 05/13/2016 7:33 PM CDT [facility] BILIRUBIN TOTAL S/P/B 2.4(H) 0.2 - 1.2 MG/DL 05/13/2016 7:33 PM CDT [facility] ALKALINE PHOSPHATASE S/P/B 136(H) 45 - 115 U/L 05/13/2016 7:33 PM CDT [facility] AST 23 5 - 35 U/L 05/13/2016 7:33 PM CDT [facility] ALT 62(H) 0 - 55 U/L 05/13/2016 7:33 PM CDT [facility] TOTAL PROTEIN S/P/B 7.7 6.0 - 8.3 G/DL 05/13/2016 7:33 PM CDT [facility] ALBUMIN S/P/B 4.3 3.4 - 4.9 G/DL 05/13/2016 7:33 PM CDT [facility] ANION GAP 14.2 MMOL/L 05/13/2016 7:33 PM CDT [facility] OSMOLALITY (CALC) 288 MOSM/KG 05/13/2016 7:33 PM CDT [facility] EGFR NON-AFR. AMER. 65 >60 ML/MIN/1.7 3 M2 05/13/2016 7:33 PM CDT [facility] EGFR AFR. AMER. 79 >60 ML/MIN/1.7 3 M2 05/13/2016 7:33 PM CDT [facility] PLASMA SPECIMEN / Unknown 05/13/2016 6:48 PM CDT 05/13/2016 6:58 PM CDT us Generic Conversion Md [facility] Final R esult [facility] [place] [address], [id number] documented in this encounter Visit Diagnoses Not on filedocumented in this encounter Care Teams Chronic Disease Epidemiologist Relationship Specialty Start Date End Date Megan Infante MD [address] [place] [address] [place] [address] PCP - General FAMILY PRACTICE 04/06/16 Piyush Pandey MD [place] Special Technical Operations Officer CARDIOVASCULAR DISEASE 04/06/16 12/28/23 Sharmila Davis APRN, EXHIBITION CARVER-C [address] [facility] [address] [place] [address] NURSE PRACTITIONER 01/04/17 04/03/24 Linda Block MD [address] [facility] [address] [place] [phone] [place] Special Technical Operations Officer CLINICAL CARDIAC ELECTROPHYSIOLOGY 02/08/17 04/12/23 documented as of this encounter
--- OUTSIDE RECORDS SUMMARY | 2024-09-03 19:16 | XMS_ITS | Encounter Summary ---
Author Organization [facility] Address [facility] [address] [place] [address] Care Team Providers Care Fertilizer Loader Name Role Phone Piyush Pandey MD Unavailable Unavailabl Megan Leos MD Primary Care Provider [phone] Sharmila Davis APRN, POWERHOUSE MECHANIC HELPER-C Unavailable [phone] Linda Block MD Unavailable [phone] Encounter Details Date Type Department Care Team (Late st Contact Info) Description 05/14/2016 Orders [place] [address] , Generic Conversion, Social History [...] (Late Contact Info) Description 09/25/2024 2:00 PM [address]INDER Appointment [facility] [address] [place] [address] Zayra Powell, EXPANSION ENVELOPE MAKER HAND [address] [place] [address] 10/16/2024 3:30 PM TRACK GRINDER Office Visit [facility] [address] [place] [address] Brit Gonzáles MD [address] [place] [address] documented as of this encounter Procedures Procedure Name Priority Date/Time Associated Diagnosis Comments MAGNESIUM Routine 05/14/2016 3:35 AM CDT documented in this encounter Results * MAGNESIUM (05/14/2016 3:35 AM CDT) MAGNESIUM 2.1 1.6 - 2.6 MG/DL 05/14/2016 4:12 AM CDT [facility] SERUM OR PLASMA SPECIMEN / Unknown 05/14/2016 3:35 AM CDT 05/14/2016 3:42 AM CDT us Generic Conversion Md [facility] Final R esult [facility] [address] [place] [address], [id number] documented in this encounter Visit Diagnoses Not on filedocumented in this encounter Care Teams Fertilizer Loader Relationship Specialty Start Date End Date Megan Infante MD [address] [facility] [place] [address] PCP - General FAMILY PRACTICE 04/06/16 Piyush Pandey MD [employer] Operator CARDIOVASCULAR DISEASE 04/06/16 12/28/23 Sharmila Davis APRN, POWERHOUSE MECHANIC HELPER-C [address] [phone] NURSE PRACTITIONER 01/04/17 04/03/24 Linda Block MD 619 [facility] [address] [phone] [employer] Operator CLINICAL CARDIAC ELECTROPHYSIOLOGY 02/08/17 04/12/23 documented as of this encounter
--- OUTSIDE RECORDS SUMMARY | 2024-09-03 19:16 | XMS_ITS | Encounter Summary ---
Author Organization [facility] Address [facility] [address] [place] [address] Care Team Providers Care Job Honer Name Role Phone Piyush Pandey MD Unavailable Unavailabl Megan Leos MD Primary Care Provider [phone] Sharmila Davis APRN, GEAR TOOTH GRINDING MACHINE OPERATOR-C Unavailable [phone] Linda Block MD Unavailable [phone] Encounter Details Date Type Department Care Team (Latest Contact Info) Description 05/14/2016 Abstract [facility] , Eun Tejeda MD Social History Tobacco Use Types Packs/Day [...] st Contact Info) Description 09/25/2024 2:00 PM COUNSELING PROGRAM LEADER Appointment [facility] [address] [place] [address] Zayra Powell, PLUGGING MACHINE OPERATOR [address] [place] [address] 10/16/2024 3:30 PM COUNSELING PROGRAM LEADER Office Visit [facility] [address] [place] [phone] Brit Gonzáles MD [address] [place] [address] documented as of this encounter Procedures Procedure Name Priority Date/Time Associated Diagnosis Comments XR CHEST 2V+NIPPLE MARKER Routine 05/14/2016 5:52 PM CDT documented in this encounter Results * XR CHEST 2V+NIPPLE MARKER (05/14/2016 5:52 PM CDT) Anatomical Region Laterality Modality Chest Radiographic Stephie ging 05/14/2016 5:52 PM CDT 05/14/2016 5:52 PM CDT Narrative 05/14/2016 5:56 PM CDT [facility] ?? [place], [place] ?? Department of Radiology ? OBIE SIMS MD: ANURAG GAYTAN MD ?? Acct: [id number] ?? : 1955 Pt Type: ADM IN ?? Sex: M Ord Site: MAIN ? Study Date Accession # Procedure Code Procedure ?? 05/14/16 [id number] CXR2V XR Chest 2 View ? Signed [...] ? Electronically Signed By: ABRIL MIRZA MD 05/14/16 [id number] ? Dictated On: 05/14/161751 ?? Interpreted By: ABRIL MIRZA MD ?? Transcribed On: 05/14/161751 - INFCE ? CC: ? ANURAG GAYTAN MD Procedure Note , Generic ConversionMD - 06/16/2018 [place], [place] Department of Radiology OBIE SIMS Ordering MD: ANURAG GAYTAN MD Acct: [id number] : 1955 Pt Type: ADM IN Sex: M Ord Site: MAIN Study Date Accession # Procedure Code Procedure 05/14/16 [id number] CXR2V XR Chest 2 View Signed Examination: [...] 05/14/161751 - INFCE CC: ANURAG GAYTAN MD Generic Conversion Md [facility] Final R esult documented in this encounter Visit Diagnoses Not on filedocumented in this encounter Care Teams Job Honer Relationship Specialty Start Date End Date Megan Infante MD [address] [facility] [place] [address] PCP - General FAMILY PRACTICE 04/06/16 Piyush Pandey MD [place] Palliative Care Specialist CARDIOVASCULAR DISEASE 04/06/16 12/28/23 Sharmila Davis APRN, GEAR TOOTH GRINDING MACHINE OPERATOR-C [address] [facility] [address] [place] [address] NURSE PRACTITIONER 01/04/17 04/03/24 Linda Block MD [address] [facility] [address] [place] [phone] [place] Palliative Care Specialist CLINICAL CARDIAC ELECTROPHYSIOLOGY 02/08/17 04/12/23 documented as of this encounter
--- OUTSIDE RECORDS SUMMARY | 2024-09-03 19:16 | XMS_ITS | Encounter Summary ---
Author Organization [facility] Address [address] [place] [address]. [place] [address] [place] [address] Care Team Providers Care Watch Train Assembler Name Role Phone Unavailable Primary Care Provider Unavailabl e Reason for Visit * Reason Onset Date Comments Follow Up Call 04/03/2016 Encounter Details Date Type Department Care Team (Late st Contact Info) Description 04/03/2016 Telephone [facility] AT PHI [address] [place] [address] Piyush Pandey MD Follow Up Call Social History Tobacco Use Types Packs/Day Years Used Date Smoking Tobacco: Former Sex and Gender Information Value Date Recorded Sex Assigned at Not on file Legal Sex Male 10:01 PM CDT Gender Identity Not on file Sexual Orientation Not on file documented as of this encounter Progress Notes * Hayley Gee RN - 04/03/2016 11:03 AM CDT Pt seen in PCP office today for hospital f/u and c/o dyspnea, after walking him around in their clinic oxygen sats dropped to 85%, place on oxygen at 3L per n/c and sats returned to 98%. Faxed their office d/c from [facility] and med list, will place in dr Pandey's [place] f/u clinic on 04/16 . documented in this encounter Plan of Treatment Upcoming Encounters Date Type Department Care Team (Late st Contact Info) Description 09/25/2024 2:00 PM USED CAR RENOVATOR Appointment [facility] [address] [place] [address] Zayra Powell, SALES HUNTER [address] [place] [address] 10/16/2024 3:30 PM USED CAR RENOVATOR Office Visit [facility] [address] [place] [address] Brit Gonzáles MD [address] [place] [address] documented as of this encounter Visit Diagnoses Not on filedocumented in this encounter
--- OUTSIDE RECORDS SUMMARY | 2024-09-03 19:16 | XMS_ITS | Encounter Summary ---
Author Organization [facility] Address [address] [place] [address]. [place] [address] [place] [address] Care Team Providers Care Advanced Seal Delivery System Name Role Phone Unavailable Primary Care Provider Unavailabl e Reason for Visit * Reason Onset Date Comments Appointment Request 04/03/2016 Encounter Details Date Type Department Care Team (Late Contact Info) Description 04/03/2016 Telephone [facility] AT [facility] [address] [place] [address] Piyush Pandey MD Appointment Request Social History Tobacco Use Types Packs/Day Years Used Date Smoking Tobacco: Former Sex and Gender Information Value Date Recorded Sex Assigned at Not on file Legal Sex Male 10:01 PM CDT Gender Identity Not on file Sexual Orientation Not on file documented as of this encounter Progress Notes * Hayley Gee RN - 04/03/2016 2:23 PM CDT PCP request pt be seen wed/wednesday next week, they don't think he is compliant with medication and Xray showed some CHF. They discussed with pt and his pharmacy. Rescheduled to 04/06 with Sharmila at 1PM. Pt aware and agrees to come to [place] documented in this encounter Plan of Treatment Upcoming Encounters Date Type Department Care Team (Late st Contact Info) Description 09/25/2024 2:00 PM HAM SAWYER Appointment [facility] [address] [place] [address] Zayra Powell, COMMUNICATIONS EQUIPMENT OPERATOR [address] [place] [address] 10/16/2024 3:30 PM HAM SAWYER Office Visit [facility] [address] [place] [address] Brit Gonzáles MD [address] [place] [address] documented as of this encounter Visit Diagnoses Not on filedocumented in this encounter
--- OUTSIDE RECORDS SUMMARY | 2024-09-03 19:16 | XMS_ITS | Encounter Summary ---
Author Organization [facility] Address Critical access hospital6 [place] [address] [place] [address] Care Team Providers Care Outpatient Psychiatrist Name Role Phone Piyush Pandey MD, Amy E MD Primary Care Provider [phone] Reason for Visit * Reason Onset Date Comments Letter 04/07/2016 Encounter Details Date Type Department Care Team (Late Contact Info) Description 04/07/2016 Telephone [facility] [address] [place] [address] Linda Block MD [address] [facility] [address] [place] [address] Letter Social History Tobacco Use Types Packs/Day Years [...] as of this encounter Progress Notes * Donnell Potter - 04/07/2016 10:25 AM CDT Please see letter dated 04/06/[address] Block (Discontinue Amio). documented in this encounter Plan of Treatment Upcoming Encounters Date Type Department Care Team (Late st Contact Info) Description 09/25/2024 2:00 PM MOLDER SETTER Appointment [facility] [address] [place] [address] Zayra Powell, ABORIGINAL CEREMONIAL CELEBRANT [address] [address] 10/16/2024 3:30 PM MOLDER SETTER Office Visit [facility] [address] [place] [address] Brit Gonzáles MD [address] [place] [address] documented as of this encounter Visit Diagnoses Not on filedocumented in this encounter Care Teams Outpatient Psychiatrist Relationship Specialty Start Date End Date Megan Infante MD [address] [place] [address] PCP - General FAMILY PRACTICE 04/06/16 Piyush Pandey MD [place] Artisan Plasterer CARDIOVASCULAR DISEASE 04/06/16 12/28/23 documented as of this encounter
--- OUTSIDE RECORDS SUMMARY | 2024-09-03 19:16 | XMS_ITS | Encounter Summary ---
Author Organization [facility] Address [facility] [place] [address] [place] [address] Care Team Providers Care Combat Engineer Name Role Phone Piyush Pandey MD Unavailable UnavailMegan Rodriguez MD Primary Care Provider [phone] Sharmila Davis APRN, GARMENT INSPECTOR-C Unavailable Linda Block MD Unavailable [phone] Encounter Details Date Type Department Care Team (Latest Contact Info) Description 05/16/2016 Abstract [facility] Medical [facility] Social History Tobacco Use Types [...] st Contact Info) Description 09/25/2024 2:00 PM SUBSURFACE AUGMENTEE ELINT OPERATOR Appointment [facility] [address] [place] [address] Zayra Powell, METHODS ENGINEER [address] [place] [address] 10/16/2024 3:30 PM SUBSURFACE AUGMENTEE ELINT OPERATOR Office Visit [facility] [address] [place] [address] Brit Gonzáles MD [address] [place] [address] documented as of this encounter Visit Diagnoses Not on filedocumented in this encounter Care Teams Combat Engineer Relationship Specialty Start Date End Date Megan Infante MD [address] [place] [address] PCP - General FAMILY PRACTICE 04/06/16 Piyush Pandey MD [place] Checkerer Hand CARDIOVASCULAR DISEASE 04/06/16 12/28/23 Sharmila Davis APRN, GARMENT INSPECTOR-C [address] [facility] [address] [place] [address] NURSE PRACTITIONER 01/04/17 04/03/24 Linda Block MD [address] [facility] [address] [address] [place] Checkerer Hand CLINICAL CARDIAC ELECTROPHYSIOLOGY 02/08/17 04/12/23 documented as of this encounter
--- OUTSIDE RECORDS SUMMARY | 2024-09-03 19:16 | XMS_ITS | Encounter Summary ---
Author Organization [facility] Address [facility] [place] [address] [place] [address] Care Team Providers Care Research Greenhouse Supervisor Name Role Phone Piyush Pandey MD Unavailable Unavailabl Megan Leos MD Primary Care Provider [phone] Sharmila Davis APRN, FIGHT MANAGER-C Unavailable [phone] Linda Block MD Unavailable [phone] Encounter Details Date Type Department Care Team (Late st Contact Info) Description 05/15/2016 Orders [place] [address] , Generic Conversion, Social History [...] (Late Contact Info) Description 09/25/2024 2:00 [address] FELLOW App[address] [facility] [address] [place] [address] Zayra Powell, SUPERVISOR PULLET FARM [address] [place] [address] 10/16/2024 3:30 PM GRADUATE FELLOW Office Visit [facility] [address] [place] [address] Brit Gonzáles MD [address] [place] [address] documented as of this encounter Procedures Procedure Name Priority Date/Time Associated Diagnosis Comments CBC W/DIFF AUTOMATED TIMED 05/15/2016 5:50 AM CDT documented in this encounter Results * (ABNORMAL) CBC W/DIFF AUTOMATED (05/15/2016 5:50 AM CDT) WBC 12.3(H) 4.0 - 10.8 x10'3/uL 05/15/2016 6:13 AM CDT [facility] RBC 3.52(L) 4.50 - 6.10 x10'6/uL 05/15/2016 6:13 AM CDT [facility] HGB 10.2(L) 13.0 - 18.0 G/DL 05/15/2016 6:13 AM CDT [facility] HCT 31.6(L) 37.0 - 52.0 % 05/15/2016 6:13 AM CDT [facility] MCV 89.8 78.0 - 100.0 FL 05/15/2016 6:13 AM CDT [facility] MCH 29.0 27.0 - 31.0 PG 05/15/2016 6:13 AM CDT [facility] MCHC 32.3(L) 33.0 - 36.0 G/DL 05/15/2016 6:13 AM CDT [facility] RDW 15.7(H) 11.5 - 14.5 % 05/15/2016 6:13 AM CDT [facility] PLT 211 150 - 350 x10'3/uL 05/15/2016 6:13 AM CDT [facility] MPV 10.6(H) 7.4 - 10.4 FL 05/15/2016 6:13 AM CDT [facility] ABS. NEUTROPHILS TOTAL 9.53(H) 1.60 - 8.30 x10'3/uL 05/15/2016 6:13 AM CDT [facility] ABS. LYMPHOCYTES 1.19 0.80 - 4.70 x10'3/uL 05/15/2016 6:13 AM CDT [facility] ABS. MONOCYTES 1.47 0.00 - 1.50 x10'3/uL 05/15/2016 6:13 AM CDT [facility] ABS. EOSINOPHILS 0.04 0.00 - 0.40 x10'3/uL 05/15/2016 6:13 AM CDT [facility] ABS. BASOPHILS 0.03 0.00 - 0.20 x10'3/uL 05/15/2016 6:13 AM CDT [facility] ABS. IMMATURE GRANULOCYTES 0.05(H) 0.00 - 0.03 x10'3/uL 05/15/2016 6:13 AM CDT [facility] ABS. NUCLEATED RBC'S 0.00 0.0 x10'3/uL 05/15/2016 6:13 AM CDT [facility] PLASMA SPECIMEN / Unknown 05/15/2016 5:50 AM CDT 05/15/2016 6:04 AM CDT us Generic Conversion Md [facility] Final R esult [facility] [place] [address], [id number] documented in this encounter Visit Diagnoses Not on filedocumented in this encounter Care Teams Research Greenhouse Supervisor Relationship Specialty Start Date End Date Megan Infante MD [address] [facility] [place] [address] PCP - General FAMILY PRACTICE 04/06/16 Piyush Pandey MD [place] Support Technician CARDIOVASCULAR DISEASE 04/06/16 12/28/23 Sharmila Davis APRN, FIGHT MANAGER-C [address] [facility] [address] [place] [address] NURSE PRACTITIONER 01/04/17 04/03/24 Linda Block MD [address] [facility] [address] [place] [phone] [place] Support Technician CLINICAL CARDIAC ELECTROPHYSIOLOGY 02/08/17 04/12/23 documented as of this encounter
--- OUTSIDE RECORDS SUMMARY | 2024-09-03 19:16 | XMS_ITS | Encounter Summary ---
Author Organization [facility] Address [address] [place] [address]. [place] [address] [place] [address] Care Team Providers Care Medical Office Scheduler Name Role Phone Piyush Pandey MD [employer] Megan Leos MD Primary Care Provider [phone] Reason for Referral * (Routine) - Closed Specialty Diagnoses / Procedures Referred By Contac t Referred To Contact Diagnoses Chronic atrial fibrillation ([facility]) Procedures HOLTER MONITOR 24 HR REC Linda Block MD [address] [facility] [address] [place] [address] Phone: tel: fax: Referral ID Status Reason Start Date Expiration Date Visits Re quested Visits Authorized [id number] Closed 04/07/2016 05/08/2017 1 1 Reason for Visit * Reason Onset Date Comments Appointment Request 04/07/2016 Encounter Details Date Type Department Care Team (Late st Contact Info) Description 04/07/2016 Telephone [facility] [address] [place] [address] Linda Block MD [address] [facility] [address] [place] [address] Appointment Request Social History Tobacco [...] Progress Notes * Donnell Potter - 04/07/2016 3:38 PM CDT Pt scheduled for Holter on 04/21/16 @ 10:00 here at [facility] and will be seen in clinic on 04/23/16 @ 11:00. Pt voiced understanding. documented in this encounter Plan of Treatment Upcoming Encounters Date Type Department Care Team (Late st Contact Info) Description 09/25/2024 2:00 PM SALES AND MERCHANDISING REPRESENTATIVE Appointment [facility] [address] [place] [address] Zayra Powell, ECHO VASC TECH [address] [place] [address] 10/16/2024 3:30 PM SALES AND MERCHANDISING REPRESENTATIVE Office Visit [facility] [address] [place] [address] Brit Gonzáles MD [address] [place] [address] documented as of this encounter Procedures Procedure Name Priority Date/Time Associated Diagnosis Comments HOLTER MONITOR 24 HR REC Routine 04/21/2016 Chronic atrial fibrillation (CMS/HCC HHS/HCC) documented in this encounter Results * HOLTER MONITOR 24 HR REC (04/21/2016) Linda Block MD HOLTER Final Result documented in this encounter Visit Diagnoses Diagnosis Chronic atrial fibrillation (CMS/HCC HHS/HCC)- Primary Atrial fibrillation documented in this encounter Care Teams Medical Office Scheduler Relationship Specialty Start Date End Date Megan Infante MD [address] [place] [address] PCP - General FAMILY PRACTICE 04/06/16 Piyush Pandey MD [place] Change Management Coordinator CARDIOVASCULAR DISEASE 04/06/16 12/28/23 documented as of this encounter
--- OUTSIDE RECORDS SUMMARY | 2024-09-03 19:16 | XMS_ITS | Encounter Summary ---
Author Organization [facility] Address [facility]6 [facility] [place] [address] [place] [address] Care Team Providers Care Extractions Technologist Name Role Phone Piyush Pandey MD Unavailable Unavailabl Megan Leos MD Primary Care Provider [phone] Sharmila Davis APRN, HYDRAULIC PRESS IN OPERATOR-C Unavailable [phone] Linda Block MD Unavailable [phone] Encounter Details Date Type Department Care Team (Late st Contact Info) Description 05/16/2016 Orders Only [place] [address] , Generic Conversion, Social History [...] (Late Contact Info) Description 09/25/2024 2:00 PM SETTER INDUCTION HEATING EQUIPMENT Appointment [facility] [address] [place] [address] Zayra Powell, PATHOLOGY TEACHER [address] [place] [address] 10/16/2024 3:30 PM SETTER INDUCTION HEATING EQUIPMENT Office Visit [facility] [address] Brit Gonzáles MD [address] [place] [address] documented as of this encounter Procedures Procedure Name Priority Date/Time Associated Diagnosis Comments POCT GLUCOSE - VALLECILLO DOCKED DEVICE Routine 05/16/2016 6:44 PM CDT documented in this encounter Results * POCT glucose (05/16/2016 6:44 PM CDT) GLUCOSE POC 90 70 - 109 05/16/2016 7:11 PM CDT [facility] ORDERS INTERFACE WHOLE BLOOD SPECIMEN / Unknown 05/16/2016 6:44 PM CDT 05/16/2016 7:11 PM CDT us Generic Conversion Md [facility] POCT ORDERABLES - DEVIC E Final Result [facility] ORDERS INTERFACE US documented in this encounter Visit Diagnoses Not on filedocumented in this encounter Care Teams Extractions Technologist Relationship Specialty Start Date End Date Megan Infante MD [address] [facility] [place] [address] PCP - General FAMILY PRACTICE 04/06/16 Piyush Pandey MD [place] Drawer In Plain Loom CARDIOVASCULAR DISEASE 04/06/16 12/28/23 Sharmila Davis APRN, HYDRAULIC PRESS IN OPERATOR-C [address] [place] [address] NURSE PRACTITIONER 01/04/17 04/03/24 Linda Block MD [address] [place] [address] [place] Drawer In Plain [place]oom CLINICAL CARDIAC ELECTROPHYSIOLOGY 02/08/17 04/12/23 documented as of this encounter
--- OUTSIDE RECORDS SUMMARY | 2024-09-03 19:16 | XMS_ITS | Encounter Summary ---
Author Organization [facility] Address [facility] [place] [address] [place] [address] Care Team Providers Care Boiler/Chiller Operator Name Role Phone Piyush Pandey MD Unavailable Unavailabl Megan Leos MD Primary Care Provider [phone] Sharmila Davis APRN, GLOVE SEWER-C Unavailable [phone] Linda Block MD Unavailable [phone] Encounter Details Date Type Department Care Team (Late st Contact Info) Description 05/17/2016 Orders [place] [address] , Generic Conversion, Social History [...] (Late Contact Info) Description 09/25/2024 2:[address] [facility] [address] [place] [address] Zayra Powell, SPAR MACHINE OPERATOR HELPER [address] [place] [address] 10/16/2024 3:30 PM CFO Office Visit [facility] [address] [place] [address] Brit Gonzáles MD [address] [place] [address] documented as of this encounter Procedures Procedure Name Priority Date/Time Associated Diagnosis Comments CBC W/DIFF AUTOMATED TIMED 05/17/2016 4:16 AM CDT documented in this encounter Results * (ABNORMAL) CBC W/DIFF AUTOMATED (05/17/2016 4:16 AM CDT) WBC 9.2 4.0 - 10.8 x10'3/uL 05/17/2016 4:35 AM CDT [facility] RBC 3.66(L) 4.50 - 6.10 x10'6/uL 05/17/2016 4:35 AM CDT [facility] HGB 10.5(L) 13.0 - 18.0 G/DL 05/17/2016 4:35 AM CDT [facility] HCT 32.4(L) 37.0 - 52.0 % 05/17/2016 4:35 AM CDT [facility] MCV 88.5 78.0 - 100.0 FL 05/17/2016 4:35 AM CDT [facility] MCH 28.7 27.0 - 31.0 PG 05/17/2016 4:35 AM CDT [facility] MCHC 32.4(L) 33.0 - 36.0 G/DL 05/17/2016 4:35 AM CDT [facility] RDW 15.0(H) 11.5 - 14.5 % 05/17/2016 4:35 AM CDT [facility] PLT 212 150 - 350 x10'3/uL 05/17/2016 4:35 AM CDT [facility] MPV 10.4 7.4 - 10.4 FL 05/17/2016 4:35 AM CDT [facility] ABS. NEUTROPHILS TOTAL 6.48 1.60 - 8.30 x10'3/uL 05/17/2016 4:35 AM CDT [facility] ABS. LYMPHOCYTES 1.39 0.80 - 4.70 x10'3/uL 05/17/2016 4:35 AM CDT [facility] ABS. MONOCYTES 0.98 0.00 - 1.50 x10'3/uL 05/17/2016 4:35 AM CDT [facility] ABS. EOSINOPHILS 0.22 0.00 - 0.40 x10'3/uL 05/17/2016 4:35 AM CDT [facility] ABS. BASOPHILS 0.03 0.00 - 0.20 x10'3/uL 05/17/2016 4:35 AM CDT [facility] ABS. IMMATURE GRANULOCYTES 0.07(H) 0.00 - 0.03 x10'3/uL 05/17/2016 4:35 AM CDT [facility] ABS. NUCLEATED RBC'S 0.00 0.0 x10'3/uL 05/17/2016 4:35 AM CDT [facility] PLASMA SPECIMEN / Unknown 05/17/2016 4:16 AM CDT 05/17/2016 4:22 AM CDT us Generic Conversion Md [facility] Final R esult [facility] [place] [place] [address], [id number] documented in this encounter Visit Diagnoses Not on filedocumented in this encounter Care Teams Boiler/Chiller Operator Relationship Specialty Start Date End Date Megan Infante MD [address] [place] [address] PCP - General FAMILY PRACTICE 04/06/16 Piyush Pandey MD [place] Automatic Pad Making Machine Operator CARDIOVASCULAR DISEASE 04/06/16 12/28/23 Sharmila Davis, ROTARY PLANER SET UP OPERATOR, GLOVE SEWER-C [address] [facility] [address] [place] [address] NURSE PRACTITIONER 01/04/17 04/03/24 Linda Block MD [address] [facility] [address] [place] [phone] [place] Automatic Pad Making Machine Operator CLINICAL CARDIAC ELECTROPHYSIOLOGY 02/08/17 04/12/23 documented as of this encounter
--- OUTSIDE RECORDS SUMMARY | 2024-09-03 19:16 | XMS_ITS | Encounter Summary ---
Author Organization [facility] Address [facility]6 [facility] [place] [address] [place] [address] Care Team Providers Care Therapeutic Case Manager Name Role Phone Piyush Pandey MD Unavailable Unavailabl Megan Leos MD Primary Care Provider [phone] Sharmila Davis APRN, HACKSAW INSPECTOR-C Unavailable [phone] Linda Block MD Unavailable [phone] Encounter Details Date Type Department Care Team (Late st Contact Info) Description 05/14/2016 Orders Only [place] [address] , Generic Conversion, Social History [...] (Late Contact Info) Description 09/25/2024 2:00 PM FOUNTAIN VENDING MECHANIC Appointment [facility] [address] [place] [address] Zayra Powell, BAND STRAIGHTENER [address] [place] [address] 10/16/2024 3:30 PM FOUNTAIN VENDING MECHANIC Office Visit [facility] [address] Brit Gonzáles MD [address] [place] [address] documented as of this encounter Procedures Procedure Name Priority Date/Time Associated Diagnosis Comments POCT GLUCOSE - VALLECILLO DOCKED DEVICE Routine 05/14/2016 7:14 PM CDT documented in this encounter Results * (ABNORMAL) POCT glucose (05/14/2016 7:14 PM CDT) GLUCOSE POC 158(H) 70 - 109 05/14/2016 7:16 PM CDT [facility] LAB ORDERS INTERFACE WHOLE BLOOD SPECIMEN / Unknown 05/14/2016 7:14 PM CDT 05/14/2016 7:16 PM CDT us Generic Conversion Md [facility] POCT ORDERABLES - DEVIC E Final Result [facility] LAB ORDERS INTERFACE US documented in this encounter Visit Diagnoses Not on filedocumented in this encounter Care Teams Therapeutic Case Manager Relationship Specialty Start Date End Date Megan Infante MD [address] [facility] [place] [phone] PCP - General FAMILY PRACTICE 04/06/16 Piyush Pandey MD [place] Bead Wire Taper CARDIOVASCULAR DISEASE 04/06/16 12/28/23 Sharmila Davis APRN, HACKSAW INSPECTOR-C [address] [facility] [address] [place] [address] NURSE PRACTITIONER 01/04/17 04/03/24 Linda Block MD [address] [facility] [address] [place] [phone] [place] Bead Wire Taper CLINICAL CARDIAC ELECTROPHYSIOLOGY 02/08/17 04/12/23 documented as of this encounter
--- OUTSIDE RECORDS SUMMARY | 2024-09-03 19:16 | XMS_ITS | Encounter Summary ---
Author Organization [facility] Address [facility] [place] [address] [place] [address] Care Team Providers Care Biofuels Plant Construction Worker Name Role Phone Piyush Pandey MD Unavailable Unavailabl Megan Leos MD Primary Care Provider [phone] Sharmila Davis APRN, RADIO PROGRAM DIRECTOR-C Unavailable [phone] Linda Block MD Unavailable [phone] Encounter Details Date Type Department Care Team (Late st Contact Info) Description 05/14/2016 Orders [place] [address] , Generic Conversion, Social History [...] (Late Contact Info) Description 09/25/2024 2:00 PM MINING PROFESSIONALS Appointment [facility] [address] [place] [address] Zayra Powell, BILLING REPRESENTATIVE [address] [place] [address] 10/16/2024 3:30 PM MINING PROFESSIONALS Office Visit [facility] [address] [place] [address] Brit Gonzáles MD 619 [place] [address] documented as of this encounter Procedures Procedure Name Priority Date/Time Associated Diagnosis Comments CBC, AUTO, NO DIFF Routine 05/14/2016 4: 40 PM CDT documented in this encounter Results * (ABNORMAL) CBC, AUTO, NO DIFF (05/14/2016 4:40 PM CDT) WBC 17.0(H) 4.0 - 10.8 x10'3/uL 05/14/2016 5:02 PM CDT [facility] RBC 3.71(L) 4.50 - 6.10 x10'6/uL 05/14/2016 5:02 PM CDT [facility] HGB 10.8(L) 13.0 - 18.0 G/DL 05/14/2016 5:02 PM CDT [facility] HCT 32.9(L) 37.0 - 52.0 % 05/14/2016 5:02 PM CDT [facility] MCV 88.7 78.0 - 100.0 FL 05/14/2016 5:02 PM CDT [facility] MCH 29.1 27.0 - 31.0 PG 05/14/2016 5:02 PM CDT [facility] MCHC 32.8(L) 33.0 - 36.0 G/DL 05/14/2016 5:02 PM CDT [facility] RDW 15.7(H) 11.5 - 14.5 % 05/14/2016 5:02 PM CDT [facility] PLT 223 150 - 350 x10'3/uL 05/14/2016 5:02 PM CDT [facility] MPV 10.7(H) 7.4 - 10.4 FL 05/14/2016 5:02 PM CDT [facility] PLASMA SPECIMEN / Unknown 05/14/2016 4:40 PM CDT 05/14/2016 4:53 PM CDT us Generic Conversion Md [facility] Final R esult [facility] [place] [address], [id number] documented in this encounter Visit Diagnoses Not on filedocumented in this encounter Care Teams Biofuels Plant Construction Worker Relationship Specialty Start Date End Date Megan Infante MD [address] [place] [address] PCP - General FAMILY PRACTICE 04/06/16 Piyush Pandey MD [place] Air Traffic Coordinator CARDIOVASCULAR DISEASE 04/06/16 12/28/23 Sharmila Davis APRN, RADIO PROGRAM DIRECTOR-C [address] [facility] [address] [place] [address] NURSE PRACTITIONER 01/04/17 04/03/24 Linda Block MD 6[address] [facility] [address] [place] [address] [place] Air Traffic Coordinator CLINICAL CARDIAC ELECTROPHYSIOLOGY 02/08/17 04/12/23 documented as of this encounter
--- OUTSIDE RECORDS SUMMARY | 2024-09-03 19:16 | XMS_ITS | Encounter Summary ---
Author Organization [facility] Address [facility]6 [facility] [place] [address] [place] [address] Care Team Providers Care Pharmacist Intern Name Role Phone Piyush Pandey MD Unavailable UnavailMegan Rodriguez MD Primary Care Provider [phone] Sharmila Davis APRN, STUDENT DRIVING INSTRUCTOR-C Unavailable Linda Block MD Unavailable [phone] Encounter Details Date Type Department Care Team (Latest Contact Info) Description 05/13/2016 Abstract [facility] Medical Group Social [...] st Contact Info) Description 09/25/2024 2:00 PM ART GALLERY INTERNSHIP Appointment [facility] [address] [place] [address] Zayra Powell, OUTDOOR ADVENTURE LEADER [address] [place] [address] 10/16/2024 3:30 PM ART GALLERY INTERNSHIP Office Visit [facility] [address] [place] [address] Brit Gonzáles MD 619 [place] [address] documented as of this encounter Visit Diagnoses Not on filedocumented in this encounter Care Teams Pharmacist Intern Relationship Specialty Start Date End Date Megan Infante MD [address] [place] [address] PCP - General FAMILY PRACTICE 04/06/16 Piyush Pandey MD [place] Recreation Leader CARDIOVASCULAR DISEASE 04/06/16 12/28/23 Sharmila Davis APRN, STUDENT DRIVING INSTRUCTOR-C 619 [facility] [address] [place] [address] NURSE PRACTITIONER 01/04/17 04/03/24 Linda Block MD 619 [facility] [address] [address] [place] Recreation Leader CLINICAL CARDIAC ELECTROPHYSIOLOGY 02/08/17 04/12/23 documented as of this encounter
--- OUTSIDE RECORDS SUMMARY | 2024-09-03 19:16 | XMS_ITS | Encounter Summary ---
Author Organization [facility] Address [facility]6 [facility] [place] [address] [place] [address] Care Team Providers Care Privacy Specialist Name Role Phone Amauri Pandey MD Unavailable Unavailabl e Megan Infante MD Primary Care Provider [phone] Sharmila Davis APRN, ECHOMETER ENGINEER-C Unavailable Linda Block MD Unavailable [phone] Encounter Details Date Type Department Care Team (Latest Contact Info) Description 05/14/2016 Abstract [facility] Medical Group , Eun Tejeda MD Social [...] on file documented as of this encounter Procedure Notes * Kamari Philip MD - 05/14/2016 7:50 PM CDT [place] [place] [facility] Name: OBIE SIMS Patient Location: [id number] Date of : 1955 Med Rec #: [id number] Admit/Service Date: 05/13/2016 Disch Date: Attending Physician: Kamari Philip MD Date/Time Dictated: Transcribed Date/Time: 05/14/2016 19:50 p.m. Surgery Date: 05/14/2016 cc: Zora Callahan MD Sunil Musinipally, M.D. Chart Document Echocardiography Report Pat.Name: OBIE SIMS Pat.ID: [id number] .Date: 05/14/2016 Refer.MD: AMAURI PANDEY Exam Time: 3:00:00 [...] mildly enlarged. IAS: Atrial septum appears intact. AYNA: No evidence of pericardial effusion. AO: Normal [...] LVOT CO 78.3 ml/s LVOTpkVel 89.1 cm/s (70-110) LVOT SV 57 ml Index 27 ml/m Right Atrium RA Press 10 mmHg AV Forward Flow AV mnVel 195 cm/s AV pkPG 38 mmHg AV mnPG 18 mmHg Area (TVI) 0.91 cm2 (3-5)* Index 0.431 cm /m AV TVI 61.9 cm Area (Wilbert) 0.9 cm2 (3-5)* AV pkVel 310 cm/s (100-170) * MV Forward Flow MV pkE 165 cm/s (60-130)* MV E/A 3.1 MV pkA 52.4 cm/s MV DeTm 194 ms PV Forward Flow PV pkVel 104 cm/s (60-90)* PV pkPG 4 mmHg TV Regurg Flow TV pkVel 301 cm/s (30-70) * TV pkPG 36 mmHg Right Ventricle [...] cm Left Atrium LA a-p 5.2 cm (2.8-3.4) * LVOT LVOT 2 cm Ratios IVS LA Biplane LAVol I BP 37.4 ml/m2 MMODE Left Atrium LAID 4.4 cm (1.9-4)* Index 2.09 cm/m Ratios LA/Ao 1.22 (0.87-1.1)* Aorta Ao Rt 3.6 cm (2-3.7) Signed 05/14/2016 07:48 PM Amauri Pandey M.D. Electronically Signed By: Amauri Pandey III, M.D. 05/14/2016 07:50 P documented in this encounter Plan of Treatment Upcoming Encounters Date Type Department Care Team (Late st Contact Info) Description 09/25/2024 2:00 PM CHILD PSYCHOLOGY TEACHER Appointment [facility] [address] [place] [address] Zayra Powell, GRAIN MERCHANDISER [address] [place] [address] 10/16/2024 3:30 PM CHILD PSYCHOLOGY TEACHER Office Visit [facility] [address] [place] [phone] Brit Gonzáles MD 619 [place] [address] documented as of this encounter Visit Diagnoses Not on filedocumented in this encounter Care Teams Privacy Specialist Relationship Specialty Start Date End Date Megan Infante MD [address] [facility] [place] [address] PCP - General FAMILY PRACTICE 04/06/16 Amauri Pandey MD [place] Senior Payroll Specialist CARDIOVASCULAR DISEASE 04/06/16 12/28/23 Sharmila Davis, AIR DRILL OPERATOR, ECHOMETER ENGINEER-C [address] [place] [place] [id number] [place] [address] NURSE PRACTITIONER 01/04/17 04/03/24 Linda Block MD 619 [facility] [address] [place] [address] [place] Senior Payroll Specialist CLINICAL CARDIAC ELECTROPHYSIOLOGY 02/08/17 04/12/23 documented as of this encounter
--- OUTSIDE RECORDS SUMMARY | 2024-09-03 19:16 | XMS_ITS | Encounter Summary ---
Author Organization [facility] Address [facility] [place] [address] [place] [address] Care Team Providers Care Volleyball Coach Name Role Phone Piyush Pandey MD Unavailable UnavailMegan Rodriguez MD Primary Care Provider [phone] Sharmila Davis APRN, PROJECT SYSTEMS ENGINEER-C Unavailable Linda Block MD Unavailable [phone] Encounter Details Date Type Department Care Team (Latest Contact Info) Description 05/14/2016 Abstract [facility] Medical Group Social History Tobacco [...] Contact Info) Description 09/25/2024 2:00 PM PHARMACY SCHEDULER Appointment [facility] [address] [place] [address] Zayra Powell, FUEL AGENT [address] [place] [address] 10/16/2024 3:30 PM PHARMACY SCHEDULER Office Visit [facility] [address] [place] [address] Brit Gonzáles MD 619 [place] [address] documented as of this encounter Visit Diagnoses Not on filedocumented in this encounter Care Teams Volleyball Coach Relationship Specialty Start Date End Date Megan Infante MD [address] [facility] [place] [address] PCP - General FAMILY PRACTICE 04/06/16 Piyush Pandey MD [place] [employer] Design Engineer CARDIOVASCULAR DISEASE 04/06/16 12/28/23 Sharmila Daivs APRN, PROJECT SYSTEMS ENGINEER-C 619 [facility] [address] [place] [address] NURSE PRACTITIONER 01/04/17 04/03/24 Linda Block MD 619 [facility] [address] [address] [place] Hvac Design Engineer CLINICAL CARDIAC ELECTROPHYSIOLOGY 02/08/17 04/12/23 documented as of this encounter
--- OUTSIDE RECORDS SUMMARY | 2024-09-03 19:16 | XMS_ITS | Encounter Summary ---
Author Organization [facility] Address [facility]6 [facility] [place] [address] [place] [address] Care Team Providers Care Psychologist Personnel Name Role Phone Piyush Pandey MD Unavailable Unavailabl Megan Leos MD Primary Care Provider [phone] Sharmila Davis APRN, GENERAL ADMINISTRATOR-C Unavailable [phone] Linda Block MD Unavailable [phone] Encounter Details Date Type Department Care Team (Late st Contact Info) Description 05/14/2016 Orders [place] [address] , Generic Conversion, Social History [...] (Late Contact Info) Description 09/25/2024 2:00 PM PHARMACY TECH CUSTOMER SERVICE Appointment [facility] [address] [place] [address] Zayra Powell, SWATCH CUTTER [address] [place] [address] 10/16/2024 3:30 PM PHARMACY TECH CUSTOMER SERVICE Office Visit [facility] [address] [place] [address] Brit Gonzáles MD 619 [place] [address] documented as of this encounter Procedures Procedure Name Priority Date/Time Associated Diagnosis Comments CULTURE RESPIRATORY W/ GRAM STAIN Routine 05/14/2016 11:49 AM CDT documented in this encounter Results * CULTURE RESPIRATORY W/ GRAM STAIN (05/14/2016 11:49 AM CDT) SPEC DESCRIPTION RESPIRATORY 05/14/2016 11:46 AM CDT [facility] SPECIAL REQUESTS NO SPECIAL REQUEST 05/14/2016 11:46 AM CDT [facility] GRAM STAIN RESULT EXCESS ORAL CONTAMINATION. FLOOR NOTIFIED. REPEAT AT PHYSICIAN'S REQUEST. 05/14/2016 4:15 PM CDT [facility] GRAM STAIN RESULT RESULTS, SPECIMEN DATE, TIME WERE READ BACK BY ASHLIE (YUNI JOSÉ) 05/14 1612. ??MA 05/14/2016 4:15 PM CDT [facility] CULTURE RESULT CULTURE NOT PERFORMED. ??SPECIMEN CONTAINS EXCESS EPITHELIAL CELLS WHICH COULD REPRESENT OROPHARYNGEAL CONTAMINATION. ?? RESULTS SHOULD BE INTERPRETED BASED ON CLINICAL CIRCUMSTANCE. PATIENT CARE AREA NOTIFIED. 05/14/2016 4:15 PM CDT [facility] SPECIMEN FROM [facility]ACHE[facility] OBTAINED BY ASPIRATION / Unknown 05/14/2016 11:49 AM CDT 05/14/2016 2:52 PM CDT Comment:SPUTUM us Generic Conversion Md [facility] MICROBIOLOG[facility] - GENERAL ORDERABLES Final Result [facility] [place] [address], [id number] documented in this encounter Visit Diagnoses Not on filedocumented in this encounter Care Teams Psychologist Personnel Relationship Specialty Start Date End Date Megan Infante MD [address] [place] [address] PCP - General FAMILY PRACTICE 04/06/16 Piyush Pandey MD [place] Ethical Hacker CARDIOVASCULAR DISEASE 04/06/16 12/28/23 Sharmila Davis, ANIMAL CARE WORKER, GENERAL ADMINISTRATOR-C [address] [facility] [address] [place] [address] NURSE PRACTITIONER 01/04/17 04/03/24 Linda Block MD [address] [facility] [address] [place] [address] [employer] Ethical Hacker CLINICAL CARDIAC ELECTROPHYSIOLOGY 02/08/17 04/12/23 documented as of this encounter
--- OUTSIDE RECORDS SUMMARY | 2024-09-03 19:16 | XMS_ITS | Encounter Summary ---
Author Organization [facility] Address [facility] [place] [address] [place] [address] Care Team Providers Care Best Worker Name Role Phone Piyush Pandey MD Unavailable Unavailabl Megan Leos MD Primary Care Provider [phone] Sharmila Davis APRN, CLOTH FINISHING RANGE BACK TENDER-C Unavailable [phone] Linda Block MD Unavailable [phone] Encounter Details Date Type Department Care Team (Late st Contact Info) Description 05/15/2016 Orders Only [place] [address] , Generic Conversion, Social History [...] (Late Contact Info) Description 09/25/2024 2:00 PM THERMAL ENGINEER Appointment [facility] [address] [place] [address] Zayra Powell, NURSERY RN [address] [place] [address] 10/16/2024 3:30 PM THERMAL ENGINEER Office Visit [facility] [place] [address] Brit Gonzáles MD 619 [place] [address] documented as of this encounter Procedures Procedure Name Priority Date/Time Associated Diagnosis Comments PROTHROMBIN TIME, VENOUS TIMED 05/15/2016 5:50 AM CDT documented in this encounter Results * (ABNORMAL) PROTIME/INR, VENOUS (05/15/2016 5:50 AM CDT) PROTIME 17.8(H) 11.6 - 14.3 SEC 05/15/2016 6:19 AM CDT [facility] INR 1.4(H) 0.9 - 1.1 05/15/2016 6:19 AM CDT [facility] 05/15/2016 5:50 AM CDT 05/15/2016 6:04 AM CDT us Generic Conversion Md [facility] Final R esult [facility] [address] [place] [address], [id number] documented in this encounter Visit Diagnoses Not on filedocumented in this encounter Care Teams Best Worker Relationship Specialty Start Date End Date Megan Infante MD [address] [place] [address] PCP - General FAMILY PRACTICE 04/06/16 Piyush Pandey MD [place] Epilepsy Physician CARDIOVASCULAR DISEASE 04/06/16 12/28/23 Sharmila Davis APRN, CLOTH FINISHING RANGE BACK TENDER-C [address] [place] [address] [address] [place] [address] NURSE PRACTITIONER 01/04/17 04/03/24 Linda Block MD [address] [place] [address] [facility] Epilepsy Physician CLINICAL CARDIAC ELECTROPHYSIOLOGY 02/08/17 04/12/23 documented as of this encounter
--- OUTSIDE RECORDS SUMMARY | 2024-09-03 19:16 | XMS_ITS | Encounter Summary ---
Author Organization [facility] Address [facility]6 [place] [address] [place] [address] Care Team Providers Care Vacuum Furnace Operator Name Role Phone Piyush Pandey MD Unavailable Unavailabl Megan Leos MD Primary Care Provider [phone] Sharmila Davis APRN, RIVETER AUTOMOBILE BRAKES-C Unavailable [phone] Linda Block MD Unavailable [phone] Encounter Details Date Type Department Care Team (Late st Contact Info) Description 05/15/2016 Orders [place] [address] , Generic Conversion, Social History [...] (Late Contact Info) Description 09/25/2024 2:00 PM WATER RESOURCE ENGINEER Appointment [facility] [address] [place] [address] Zayra Powell, FINISHING OPERATOR [address] [place] [address] 10/16/2024 3:30 PM WATER RESOURCE ENGINEER Office Visit [facility] [place] [address] Brit Gonzáles MD 619 [place] [address] documented as of this encounter Procedures Procedure Name Priority Date/Time Associated Diagnosis Comments POCT GLUCOSE - VALLECILLO DOCKED DEVICE Routine 05/15/2016 7:19 PM CDT documented in this encounter Results * (ABNORMAL) POCT glucose (05/15/2016 7:19 PM CDT) GLUCOSE POC 139(H) 70 - 109 05/16/2016 1:51 AM CDT [facility] ORDERS INTERFACE WHOLE BLOOD SPECIMEN / Unknown 05/15/2016 7:19 PM CDT 05/16/2016 1:51 AM CDT us Generic Conversion Md LANDRY POCT ORDERABLES - DEVIC E Final Result [facility] ORDERS INTERFACE US documented in this encounter Visit Diagnoses Not on filedocumented in this encounter Care Teams Vacuum Furnace Operator Relationship Specialty Start Date End Date Megan Infante MD [address] [facility] [place] [address] PCP - General FAMILY PRACTICE 04/06/16 Piyush Pandey MD [place] Director Employee Safety And Health CARDIOVASCULAR DISEASE 04/06/16 12/28/23 Sharmila Davis APRN, RIVETER AUTOMOBILE BRAKES-C 619 [facility] [address] [place] [address] NURSE PRACTITIONER 01/04/17 04/03/24 Linda Block MD 619 [facility] [address] [place] [address] [place] Director Employee Safety And Health CLINICAL CARDIAC ELECTROPHYSIOLOGY 02/08/17 04/12/23 documented as of this encounter
--- OUTSIDE RECORDS SUMMARY | 2024-09-03 19:16 | XMS_ITS | Encounter Summary ---
Author Organization [facility] Address [address] [place] [address]. [place] [address] [place] [address] Care Team Providers Care Numerical Control Operator Name Role Phone Piyush Pandey MD Unavailable Unavailabl Megan Leos MD Primary Care Provider [phone] Sharmila Davis APRN, COKE OVEN PATCHER-C Unavailable [phone] Linda Block MD Unavailable [phone] Encounter Details Date Type Department Care Team (Late st Contact Info) Description 04/13/[address] [facility] [address] [place] [address] Piyush Pandey MD Social History Tobacco Use [...] Contact Info) Description 09/25/2024 2:00 PM FIELD CROPS HARVEST MACHINE OPERATOR Appointment [facility] [address] [place] [address] Zayra Powell, [facility] [address] [place] [address] 10/16/2024 3:30 PM FIELD CROPS HARVEST MACHINE OPERATOR Office Visit [facility] [address] [place] [phone] Brit Gonzáles MD 619 [place] [address] documented as of this encounter Visit Diagnoses Diagnosis Dyspnea Other dyspnea and respiratory abnormality documented in this encounter Care Teams Numerical Control Operator Relationship Specialty Start Date End Date Megan Infante MD [address] [facility] [place] [address] PCP - General FAMILY PRACTICE 04/06/16 Piyush Pandey MD [place] [employer] Broaching Machine Operator CARDIOVASCULAR DISEASE 04/06/16 12/28/23 Sharmila Davis, DANNY, COKE OVEN PATCHER-C 619 [facility] [address] [place] [address] NURSE PRACTITIONER 01/04/17 04/03/24 Linda Block MD 619 [facility] [address] [place] [address] [employer] Broaching Machine Operator CLINICAL CARDIAC ELECTROPHYSIOLOGY 02/08/17 04/12/23 documented as of this encounter
--- OUTSIDE RECORDS SUMMARY | 2024-09-03 19:16 | XMS_ITS | Encounter Summary ---
Author Organization [facility] Address [facility]6 [facility] [place] [address] [place] [address] Care Team Providers Care Maintenance Of Way Foreman Name Role Phone Piyush Pandey MD Unavailable Unavailabl Megan Leos MD Primary Care Provider [phone] Sharmila Davis APRN, RECORDING CLERK-C Unavailable [phone] Linda Block MD Unavailable [phone] Encounter Details Date Type Department Care Team (Late st Contact Info) Description 05/15/2016 Orders [place] [address] , Generic Conversion, Social History [...] (Late Contact Info) Description 09/25/2024 2:00 PM RADIAL DRILL PRESS OPERATOR FOR PLASTIC Appointment [facility] [address] [place] [address] Zayra Powell, NUCLEAR OPERATOR [address] [place] [address] 10/16/2024 3:30 PM RADIAL DRILL PRESS OPERATOR FOR PLASTIC Office Visit [facility] [place] [address] Brit Gonzáles MD 619 [place] [address] documented as of this encounter Procedures Procedure Name Priority Date/Time Associated Diagnosis Comments POCT GLUCOSE - VALLECILLO DOCKED DEVICE Routine 05/15/2016 2:31 PM CDT documented in this encounter Results * (ABNORMAL) POCT glucose (05/15/2016 2:31 PM CDT) GLUCOSE POC 133(H) 70 - 109 05/15/2016 2:35 PM CDT [facility] ORDERS INTERFACE WHOLE BLOOD SPECIMEN / Unknown 05/15/2016 2:31 PM CDT 05/15/2016 2:34 PM CDT us Generic Conversion Md LANDR[facility] POCT ORDERABLES - DEVIC E Final Result [facility] ORDERS INTERFACE US documented in this encounter Visit Diagnoses Not on filedocumented in this encounter Care Teams Maintenance Of Way Foreman Relationship Specialty Start Date End Date Megan Infante MD [address] [facility] [place] [address] PCP - General FAMILY PRACTICE 04/06/16 Piyush Pandey MD [place] Turkish Rubber CARDIOVASCULAR DISEASE 04/06/16 12/28/23 Sharmila Davis APRN, RECORDING CLERK-C 619 [facility] 47 [place] [address] NURSE PRACTITIONER 01/04/17 04/03/24 Linda Block MD 619 [facility] [address] [place] [address] [place] Turkish Rubber CLINICAL CARDIAC ELECTROPHYSIOLOGY 02/08/17 04/12/23 documented as of this encounter
--- OUTSIDE RECORDS SUMMARY | 2024-09-03 19:16 | XMS_ITS | Encounter Summary ---
Author Organization [facility] Address [facility]6 [facility] [place] [address] [place] [address] Care Team Providers Care Magento Web Developer Name Role Phone Piyush Pandey MD Unavailable Unavailabl Megan Leos MD Primary Care Provider [phone] Sharmila Davis APRN, AUTOMATIC SILK SCREEN PRINTER-C Unavailable [phone] Linda Block MD Unavailable [phone] Encounter Details Date Type Department Care Team (Late st Contact Info) Description 05/16/2016 Orders Only [place] [address] , Generic Conversion, Social History [...] (Late Contact Info) Description 09/25/2024 2:00 PM GANG DRILL PRESS OPERATOR Appointment [facility] [address] [place] [address] Zayra Powell, BUMPER MACHINE OPERATOR [address] [place] [address] 10/16/2024 3:30 PM GANG DRILL PRESS OPERATOR Office Visit [facility] [place] [phone] Brit Gonzáles MD [address] [place] [address] documented as of this encounter Procedures Procedure Name Priority Date/Time Associated Diagnosis Comments PROTHROMBIN TIME, VENOUS TIMED 05/16/2016 5:08 AM CDT documented in this encounter Results * (ABNORMAL) PROTIME/INR, VENOUS (05/16/2016 5:08 AM CDT) PROTIME 16.9(H) 11.6 - 14.3 SEC 05/16/2016 5:49 AM CDT [facility] INR 1.3(H) 0.9 - 1.1 05/16/2016 5:49 AM CDT [facility] 05/16/2016 5:08 AM CDT 05/16/2016 5:25 AM CDT us Generic Conversion Md [facility] Final R esult [facility] [address] [place] [address], [id number] documented in this encounter Visit Diagnoses Not on filedocumented in this encounter Care Teams Magento Web Developer Relationship Specialty Start Date End Date Megan Infante MD [address] [facility] [place] [phone] PCP - General FAMILY PRACTICE 04/06/16 Piyush Pandey MD [place] Wheat Grower CARDIOVASCULAR DISEASE 04/06/16 12/28/23 Sharmila Davis APRN, AUTOMATIC SILK SCREEN PRINTER-C [address] [place] [address] [address] [place] [address] NURSE PRACTITIONER 01/04/17 04/03/24 Linda Block MD [address] [facility] [address] [place] [address] [place] Wheat Grower CLINICAL CARDIAC ELECTROPHYSIOLOGY 02/08/17 04/12/23 documented as of this encounter
--- OUTSIDE RECORDS SUMMARY | 2024-09-03 19:16 | XMS_ITS | Encounter Summary ---
Author Organization [facility] Address [facility]6 [facility] [place] [address] [place] [address] Care Team Providers Care Electrical Parts Reconditioner Name Role Phone Piyush Pandey MD, Amy E MD Primary Care Provider [phone] Reason for Visit * Reason Comments Follow Up atrial fibrillation, rate control Encounter Details Date Type Department Care Team (Latest Contact Info) Description 04/23/2016 11:00 AM CDT Office Visit [facility] [address] [place] [phone] Linda Block MD [address] [place] [address] [place] [phone] Follow Up (atrial fibrillation, rate control) Social History Tobacco Use Types Packs/Day Years [...] Sign Reading Time Taken Comments Blood Pressure 110/60 04/23/2016 10:10 AM CDT Pulse 61 04/23/2016 10:10 AM CDT Temperature - - Respiratory Rate 16 04/23/2016 10:10 AM CDT Oxygen Saturation - - Inhaled Oxygen Concentration - - Weight 103 kg (227 lb) 04/23/2016 10:10 AM CDT Height 167.6 cm (5' 6 ) 04/23/2016 10:10 AM CDT Body Mass Index 36.64 04/23/2016 10:10 AM CDT documented in this encounter Progress Notes * Linda Block MD - 04/23/2016 11:07 AM CDT HISTORY OF PRESENT ILLNESS: A quick note to update your records on Mendez Lay. As you know, this very pleasant 60-year-old gentleman was seen in followup in clinic today to discuss his recent evaluation. He has been having issues with shortness of breath which I felt was more likely related to hisunderlying lung disease. Pulmonary function studies were done about a week ago and, indeed, show anFEV1 and FVC in the range of 50-55% normal. Although another factor that could be contributing to his breathing difficulties is his bioprosthetic aortic valve area of only 1.0 cm2, a BNP recently wasonly 182, so I do think that there is really any element of heart failure operating here. His atrial fibrillation has now been managed nicely with a rate control strategy. It was good to see that his blood pressure was nicely controlled today, so I think he is doing a good job with being compliant. RECOMMENDATIONS AND PLAN: I had a lengthy discussion with Mr. Lay regarding his current rhythm management and advised that we continue rate control with the current regimen. He is on oral anticoagulation for stroke prophylaxis. The pulmonary function study results indicated that there was a 10-15% response with bronchodilator, so there may be some hope that improved dyspnea is possible through medical management. However, it may be necessary for him to see Maximiliano Callahan again at some point and I will leave that in your hands. Another echocardiogram is being ordered by Dr. Pandey office in about 5 months to reassess the bovine bioprosthetic aortic valve. At this point, I will plan to see Mendez again in about a year, certainly sooner if necessary. Warmest regards, Linda Block M.D. A copy of this report has been sent to: Piyush Pandey * Linda Block MD - 04/23/2016 10:35 AM CDT Chief Complaint: Follow Up (atrial fibrillation, rate control) Recommendations/Plan: History of Present Illness: Medications: Current Outpatient Prescriptions: ??? acetaminophen (TYLENOL) [...] bymouth twice a day with meals; 0; -May-2014; Active, Disp: , Rfl: ??? Prazosin HCl [...] Rfl: 2 No Known Allergies Past Medical History Diagnosis Date ??? Anxiety ??? Aortic valve stenosis ??? Arthritis ??? Atrial fibrillation s/p PVI/WACA 10/2015 ??? Carotid disease, bilateral ??? COPD (chronic obstructive pulmonary disease) ??? Coronary artery disease ??? Diabetes mellitus, type II ??? Hyperlipidemia ??? Hypertension ??? LV dysfunction ??? Restless leg syndrome ??? S/P aortic valve replacement with bioprosthetic valve 2013 1999, 2013 Past Surgical History Procedure Laterality Date ??? Cardiac valve replacement 1999 ??? Cardiac valve replacement 2013 ??? Knee arthroplasty Bilateral ??? Hip arthroplasty Left ??? Repair rotator cuff w/ or w/o acromioplasty ??? Appendectomy ??? Cardioversion external 10/01/2015 ??? Ablate heart dysrhythm focus 10/23/2015 PVI/WACA ??? Cardioversion external 03/2016 Social History Social History ??? Marital status: [...] cough and shortness of breath. Negative for hemoptysis and wheezing. Cardiovascular: Negative for chest pain and palpitations. Gastrointestinal: Negative for blood in stool and melena. Genitourinary: Negative for dysuria. Musculoskeletal: Negative for joint pain and myalgias. Skin: Negative for rash. Neurological: Negative for tingling, sensory change, focal weakness and headaches. Endo/Heme/Allergies: Negative for polydipsia. Does not bruise/bleed easily. Filed Vitals: 04/23/16 1010 BP: 110/60 Pulse: 61 Resp: 16 Weight: 103 kg (227 lb) Height: 5' 6 (1.676 m) Physical [...] His behavior is normal. Thought content normal. No results found for this visit on 04/23/16. Diagnoses/Impression: 1. Permanent atrial fibrillation ELECTROCARDIOGRAM (NON MIDMARK ACQUIRED) PINNACLE Documentation Completed: Atrial Fibrillation documented in this encounter Plan of Treatment Upcoming Encounters Date Type Department Care Team (Late st Contact Info) Description 09/25/2024 2:00 PM APPRENTICE TECHNICIAN Appointment [facility] [address] [place] [address] Zayra Powell, SURGICAL SERVICES TECH [address] [place] [address] 10/16/2024 3:30 PM APPRENTICE TECHNICIAN Office [facility] [place] [phone] Brit Gonzálse MD [address] [place] [address] documented as of this encounter Visit Diagnoses Diagnosis Permanent atrial fibrillation (CMS/HCC HHS/HCC)- Primary Atrial fibrillation documented in this encounter Care Teams Electrical Parts Reconditioner Relationship Specialty Start Date End Date Megan Infante MD [address] [facility] [place] [phone] PCP - General FAMILY PRACTICE 04/06/16 Piyush Pandey MD [place] Bench Grinder CARDIOVASCULAR DISEASE 04/06/16 12/28/23 documented as of this encounter
--- OUTSIDE RECORDS SUMMARY | 2024-09-03 19:16 | XMS_ITS | Encounter Summary ---
Author Organization [facility] Address [facility]6 [facility] [place] [address] [place] [address] Care Team Providers Care Charger Name Role Phone Piyush Pandey MD Unavailable Unavailabl Megan Leos MD Primary Care Provider [phone] Sahrmila Davis APRN, JEWEL SORTER-C Unavailable [phone] Linda Block MD Unavailable [phone] Encounter Details Date Type Department Care Team (Late st Contact Info) Description 05/16/2016 Orders [place] [address] , Generic Conversion, Social History [...] (Late Contact Info) Description 09/25/2024 2:00 PM FORMING MACHINE OPERATOR Appointment [facility] [address] [place] [address] Zayra Powell, RADIO ANNOUNCER [address] [place] [address] 10/16/2024 3:30 PM FORMING MACHINE OPERATOR Office Visit [facility] [address] [place] [address] Brit Gonzáles MD [address] [place] [address] documented as of this encounter Procedures Procedure Name Priority Date/Time Associated Diagnosis Comments CBC W/DIFF AUTOMATED TIMED 05/16/2016 5:08 AM CDT documented in this encounter Results * (ABNORMAL) CBC W/DIFF AUTOMATED (05/16/2016 5:08 AM CDT) WBC 8.7 4.0 - 10.8 x10'3/uL 05/16/2016 5:32 AM CDT [facility] RBC 3.81(L) 4.50 - 6.10 x10'6/uL 05/16/2016 5:32 AM CDT [facility] HGB 10.7(L) 13.0 - 18.0 G/DL 05/16/2016 5:32 AM CDT [facility] HCT 34.1(L) 37.0 - 52.0 % 05/16/2016 5:32 AM CDT [facility] MCV 89.5 78.0 - 100.0 FL 05/16/2016 5:32 AM CDT [facility] MCH 28.1 27.0 - 31.0 PG 05/16/2016 5:32 AM CDT [facility] MCHC 31.4(L) 33.0 - 36.0 G/DL 05/16/2016 5:32 AM CDT [facility] RDW 15.3(H) 11.5 - 14.5 % 05/16/2016 5:32 AM CDT [facility] PLT 207 150 - 350 x10'3/uL 05/16/2016 5:32 AM CDT [facility] MPV 10.2 7.4 - 10.4 FL 05/16/2016 5:32 AM CDT [facility] ABS. NEUTROPHILS TOTAL 6.31 1.60 - 8.30 x10'3/uL 05/16/2016 5:32 AM CDT [facility] ABS. LYMPHOCYTES 1.11 0.80 - 4.70 x10'3/uL 05/16/2016 5:32 AM CDT [facility] ABS. MONOCYTES 1.01 0.00 - 1.50 x10'3/uL 05/16/2016 5:32 AM CDT [facility] ABS. EOSINOPHILS 0.14 0.00 - 0.40 x10'3/uL 05/16/2016 5:32 AM CDT [facility] ABS. BASOPHILS 0.04 0.00 - 0.20 x10'3/uL 05/16/2016 5:32 AM CDT [facility] ABS. IMMATURE GRANULOCYTES 0.05(H) 0.00 - 0.03 x10'3/uL 05/16/2016 5:32 AM CDT [facility] ABS. NUCLEATED RBC'S 0.00 0.0 x10'3/uL 05/16/2016 5:32 AM CDT [facility] PLASMA SPECIMEN / Unknown 05/16/2016 5:08 AM CDT 05/16/2016 5:25 AM CDT us Generic Conversion Md [facility] Final R esult [facility] [place] [place] [address] [place] [address], [id number] documented in this encounter Visit Diagnoses Not on filedocumented in this encounter Care Teams Charger Relationship Specialty Start Date End Date Megan Infante MD [address] [facility] [place] [address] PCP - General FAMILY PRACTICE 04/06/16 Piyush Pandey MD [place] Product Design Manager CARDIOVASCULAR DISEASE 04/06/16 12/28/23 Sharmila Davis, GENERAL LITHOGRAPHIC WORKER, JEWEL SORTER-C [address] [facility] [address] [place] [phone] NURSE PRACTITIONER 01/04/17 04/03/24 Linda Block MD [address] [facility] [address] [place] [phone] [place] Product Design Manager CLINICAL CARDIAC ELECTROPHYSIOLOGY 02/08/17 04/12/23 documented as of this encounter
--- OUTSIDE RECORDS SUMMARY | 2024-09-03 19:16 | XMS_ITS | Encounter Summary ---
Author Organization [facility] Address [facility]6 [facility] [place] [address] [place] [address] Care Team Providers Care Wearing Apparel Presser Name Role Phone Piyush Pandey MD Unavailable Unavailabl Megan Leos MD Primary Care Provider [phone] Sharmial Davis APRN, BIOMASS BOILER OPERATOR-C Unavailable [phone] Linda Block MD Unavailable [phone] Encounter Details Date Type Department Care Team (Late st Contact Info) Description 05/14/2016 Orders [place] [address] , Generic Conversion, Social History [...] (Late Contact Info) Description 09/25/2024 2:[address] [facility] [address] [place] [address] Zayra Powell, HOSPITALITY DIRECTOR [address] [place] [address] 10/16/2024 3:30 PM CHORAL DIRECTOR Office Visit [facility] [place] [phone] Brit Gonzáles MD [address] [place] [address] documented as of this encounter Procedures Procedure Name Priority Date/Time Associated Diagnosis Comments PROTHROMBIN TIME, VENOUS TIMED 05/14/2016 3:35 AM CDT documented in this encounter Results * (ABNORMAL) PROTIME/INR, VENOUS (05/14/2016 3:35 AM CDT) PROTIME 17.2(H) 11.6 - 14.3 SEC 05/14/2016 3:58 AM CDT [facility] INR 1.4(H) 0.9 - 1.1 05/14/2016 3:58 AM CDT [facility] 05/14/2016 3:35 AM CDT 05/14/2016 3:43 AM CDT us Generic Conversion Md [facility] Final R esult [facility] [address] [place] [address], [id number] documented in this encounter Visit Diagnoses Not on filedocumented in this encounter Care Teams Wearing Apparel Presser Relationship Specialty Start Date End Date Megan Infante MD [address] [place] [phone] PCP - General FAMILY PRACTICE 04/06/16 Piyush Pandey MD [facility] Sanitarian Technician CARDIOVASCULAR DISEASE 04/06/16 12/28/23 Sharmila Davis APRN, BIOMASS BOILER OPERATOR-C [address] [place] [address] [address] [place] [address] NURSE PRACTITIONER 01/04/17 04/03/24 Linda Block MD [address] [facility] [address] [place] [address] [facility] Sanitarian Technician CLINICAL CARDIAC ELECTROPHYSIOLOGY 02/08/17 04/12/23 documented as of this encounter
--- OUTSIDE RECORDS SUMMARY | 2024-09-03 19:16 | XMS_ITS | Encounter Summary ---
Author Organization [facility] Address [facility]6 [facility] [address] [place] [address] Care Team Providers Care Auditor/Quality Name Role Phone Piyush Pandey MD Unavailable Unavailabl e Megan Infante MD Primary Care Provider [phone] Sharmila Davis APRN, MANAGER COMMUNITY DEVELOPMENT-C Unavailable Linda Block MD Unavailable [phone] Encounter Details Date Type Department Care Team (Late st Contact Info) Description 05/17/2016 BOOTH CLEANER ONLY [facility] [address] [place] [address] Scanned, Documents Social History Tobacco [...] as of this encounter Progress Notes * Zscanned, Documents - 05/18/2016 8:34 AM CDT DATE: [facility]18/16 [facility]ER: [email or web address] Medication Reconciliation PHYNRXRI DISCHARGE MEDICATION INSTRUCTIONS OBIE SISM LAVELLE Location: BMI: 32.4 MR#: [id number] Admit Date: 05/13/16 : 1955 Weight: 93.498632 kg Height: 170.18 cm Allergies: No Known Drug Allergies Adverse: Attending Dr: ANURAG GAYTAN MD Medication Dose Route Schedule Instructions/Indications Copy given to Patient Note: It is important to keep an updated list of all prescription and over the counter medications you take. ALWAYS share this list with all the Doctors you see and review this list with your pharmacist each time you have a prescription filled Medications, Herbals, and Supplements Last Taken HOME MED AMLODIPINE BESYLATE 1 TAB NONE IN HOSP TA (AMLODIPINE BESYLATE) 1 TAB ORAL DAILY Qty: 90 TAKE 1 TABLET BY MOUTH DAILY - SIG Obtained From Linda HOME MED ASPIRIN 81 MG 05/17/16 8:41am (CHILDREN'S ASPIRIN) 81 MG ORAL DAILY blood thinner HOME MED ATORVASTATIN CALCIUM 1 TAB 05/16/16 10:42p (ATORVASTATIN CALCIUM) 1 TAB ORAL BEDTIME Qty: 90 TAKE 1 TABLET BY MOUTH AT BEDTIME - SIG Obtained From Linda AMBULATORY MED CARVEDILOL 12.5 MG 05/17/16 5:28am (COREG) 12.5 MG ORAL EVERY 12 HOURS Qty: 60 Patient Had Anti-Coagulant in the Past 72 Hours CONTINUED ON NEXT PAGE ACCESS ID: DATE: 05/18/16 @ 0601 [facility] PAGE 2 USER: [email or web address] Medication Reconciliation PHYNRXRI DISCHARGE MEDICATION INSTRUCTIONS OBIE SIMS Location: 7E BMI: 32.4 MR#: [id number] Admit Date: 05/13/16 : 1955 M Weight: 93.990399 kg Height: 170.18 cm Allergies: No Known Drug Allergies Adverse: Attending Dr: ANURAG GAYTAN MD Medications, Herbals, and Supplements Last Taken Medication Dose Route Schedule Instructions/Indications HOME MED FUROSEMIDE 40 MG 05/17/16 8:41am (LASIX) 40 MG ORAL TWICE A DAY BLOOD PRESSURE/ water pill HOME MED HYDROCODONE BIT/ACETAMINOPHEN 1 TAB NONE IN HOSP TA (HYDROCODONE-ACETAMINOPH 7.5-300) 1 TAB ORAL TWICE A DAY NEEDED for PAIN Qty: 60 TAKE 1 TABLET BY MOUTH TWICE A DAY NEEDED FOR PAIN - SIG Obtained From Linda HOME MED LISINOPRIL 20 MG 05/17/16 8:41am (ZESTRIL) 20 MG ORAL DAILY high blood pressure HOME MED MAGNESIUM OXIDE 400 MG NONE IN HOSP MG (MAGOX 400) 400 MG ORAL DAILY Patient Had Anti-Coagulant in the Past 72 Hours CONTINUED ON NEXT PAGE ACCESS ID: DATE: 05/18/16 @ 0601 [facility] PAGE 3 USER: [email or web address] Medication Reconciliation PHYNRXRI DISCHARGE MEDICATION INSTRUCTIONS OBIE SIMS Location: 7E BMI: 32.4 MR#: [id number] Admit Date: 05/13/16 : 1955 Weight: 93.056772 kg Height: 170.18 cm Allergies: No Known Drug Allergies Adverse: Attending Dr: ANURAG GAYTAN MD Medications, Herbals, and Supplements Last Taken Medication Dose Route Schedule Instructions/Indications HOME MED METFORMIN 1000 MG NONE IN HOSP MG (GLUCOPHAGE) 1000 MG ORAL TWICE DAILY WITH MEALS diabetes HOME MED MOMETASONE/FORMOTEROL 2 INH NONE IN HOSP IN (DULERA 200 MCG/5 MCG INHALER) 2 INH INHALATION TWICE A DAY HOME MED PRAZOSIN HCL 2 MG NONE IN HOSP MG (MINIPRESS) 2 MG ORAL BEDTIME AMBULATORY MED SPIRONOLACTONE TAB 25 MG 05/17/16 8:41am (ALDACTONE) 25 MG ORAL ONCE DAILY WITH MEAL Qty: 30 HOME MED TRAZODONE 200 MG 05/16/16 10:42p (TRAZODONE) 200 MG ORAL BEDTIME sleep Patient Had Anti-Coagulant in the Past 72 Hours CONTINUED ON NEXT PAGE ACCESS ID: DATE: 05/18/[address] [facility] LIVE PAGE 4 USER: [email or web address] Medication Reconciliation PHYNRXRI DISCHARGE MEDICATION INSTRUCTIONS OBIE SIMS Location: 7E BMI: 32.4 MR#: [id number] Admit Date: 05/13/16 : 1955 M Weight: 93.104258 kg Height: 170.18 cm Allergies: No Known Drug Allergies Adverse: Attending Dr: ANURAG GAYTAN MD Medications, Herbals, and Supplements Last Taken Medication Dose Route Schedule Instructions/Indications HOME MED UMECLIDINIUM BROMIDE 1 INH NONE IN HOSP IN (INCRUSE ELLIPTA) 1 INH INHALATION DAILY Qty: 30 INHALE 1 PUFF BY MOUTH DAILY - SIG Obtained From Linda HOME MED WARFARIN 7MG 7 MG 05/16/16 10:42p (WARFARIN 7MG) 7 MG ORAL DAILY BLOOD THINNER Patient Had Anti-Coagulant in the Past 72 Hours CONTINUED ON NEXT PAGE ACCESS ID: DATE: 05/18/16 @ 0601 [facility] PAGE 5 USER: [email or web address] Medication Reconciliation PHYNRXRI DISCHARGE MEDICATION INSTRUCTIONS OBIE SIMS Location: BMI: 32.4 MR#: [id number] Admit Date: 05/13/16 : 1955 M Weight: 93.036967 kg Height: 170.18 cm Allergies: No Known Drug Allergies Adverse: Attending Dr: ANURAG GAYTAN MD Medication Dose Route Schedule Instructions/Indications Note to the next provider of care: If you need clarification about the list of medications please contact the discharging physician. If you need clarification regarding the discharge physician you may contact the HIM department at the hospital. Patient Had Anti-Coagulant in the Past 72 Hours END OF REPORT documented in this encounter Plan of Treatment Upcoming Encounters Date Type Department Care Team (Late st Contact Info) Description 09/25/2024 2:00 PM [address]ER Appointment [facility] [place] [address] Zayra Powell, [facility] [address] [facility] [place] [address] 10/16/2024 3:30 PM OPAL POLISHER Office Visit [facility] [phone] [facility] [address] [place] [phone] Brit Gonzáles MD [address] [place] [address] documented as of this encounter Visit Diagnoses Not on filedocumented in this encounter Care Teams Auditor/Quality Relationship Specialty Start Date End Date Megan Infante MD [address] [facility] [place] [address] PCP - General FAMILY PRACTICE 04/06/16 Piyush Pandey MD [place] Editor Trade Journal CARDIOVASCULAR DISEASE 04/06/16 12/28/23 Sharmila Davis APRN, MANAGER COMMUNITY DEVELOPMENT-C [address] [facility] [address] [place] [address] NURSE PRACTITIONER 01/04/17 04/03/24 Linda Block MD [address] [facility] [address] [place] [address] [place] Editor Trade Journal CLINICAL CARDIAC ELECTROPHYSIOLOGY 02/08/17 04/12/23 documented as of this encounter
--- OUTSIDE RECORDS SUMMARY | 2024-09-03 19:16 | XMS_ITS | Encounter Summary ---
Author Organization [facility] Address [facility]6 [facility] [place] [address] [place] [address] Care Team Providers Care Cytopathologist Name Role Phone Piyush Pandey MD Unavailable UnavailMegan Rodriguez MD Primary Care Provider [phone] Sharmila Davis APRN, LECTURER IN MARKETING-C Unavailable Linda Block MD Unavailable [phone] Encounter Details Date Type Department Care Team (Latest Contact Info) Description 05/15/2016 Abstract [facility] Social History Tobacco Use [...] st Contact Info) Description 09/25/2024 2:00 PM TOP LOADER Appointment [facility] [address] [place] [address] Zayra Powell, COMIC BOOK WRITER [address] [place] [address] 10/16/2024 3:30 PM TOP LOADER Office Visit [facility] [address] [place] [address] Brit Gonzáles MD [address] [place] [address] documented as of this encounter Visit Diagnoses Not on filedocumented in this encounter Care Teams Cytopathologist Relationship Specialty Start Date End Date Megan Infante MD [address] [facility] [place] [phone] PCP - General FAMILY PRACTICE 04/06/16 Piyush Pandey MD [place] Transfer Machine Operator CARDIOVASCULAR DISEASE 04/06/16 12/28/23 Sharmila Davis APRN, LECTURER IN MARKETING-C [address] [facility] [address] [place] [phone] NURSE PRACTITIONER 01/04/17 04/03/24 Linda Block MD [address] [facility] [address] [address] [place] Transfer Machine Operator CLINICAL CARDIAC ELECTROPHYSIOLOGY 02/08/17 04/12/23 documented as of this encounter
--- OUTSIDE RECORDS SUMMARY | 2024-09-03 19:16 | XMS_ITS | Encounter Summary ---
Author Organization [facility] Address [facility] [place] [address] [place] [address] Care Team Providers Care Interventional Nurse Name Role Phone Piyush Pandey MD Unavailable Unavailabl Megan Leos MD Primary Care Provider [phone] Sharmila Davis APRN, PUPPY SITTER-C Unavailable [phone] Linda Block MD Unavailable [phone] Encounter Details Date Type Department Care Team (Late st Contact Info) Description 05/16/2016 Orders [place] [address] , Generic Conversion, Social History [...] (Late Contact Info) Description 09/25/2024 2:00 PM JANITOR SUPERVISOR Appointment [facility] [address] [place] [address] Zayra Powell, TELEVISION PRODUCTION TECHNICIAN [address] [place] [address] 10/16/2024 3:30 PM JANITOR SUPERVISOR Office Visit [facility] [place] [address] Brit Gonzáles MD [address] [place] [address] documented as of this encounter Procedures Procedure Name Priority Date/Time Associated Diagnosis Comments POCT GLUCOSE - VALLECILLO DOCKED DEVICE Routine 05/16/2016 10:19 PM CDT documented in this encounter Results * (ABNORMAL) POCT glucose (05/16/2016 10:19 PM CDT) GLUCOSE POC 189(H) 70 - 109 05/16/2016 11:58 PM CDT [facility] ORDERS INTERFACE WHOLE BLOOD SPECIMEN / Unknown 05/16/2016 10:19 PM CDT 05/16/2016 11:57 PM CDT us Generic Conversion Md LANDRY POCT ORDERABLES - DEVIC E Final Result [facility] ORDERS INTERFACE US documented in this encounter Visit Diagnoses Not on filedocumented in this encounter Care Teams Interventional Nurse Relationship Specialty Start Date End Date Megan Infante MD [address] [facility] [place] [phone] PCP - General FAMILY PRACTICE 04/06/16 Piyush Pandey MD [place] [employer] Journalist CARDIOVASCULAR DISEASE 04/06/16 12/28/23 Sharmila Davis APRN, PUPPY SITTER-C [address] [facility] [address] [place] [address] NURSE PRACTITIONER 01/04/17 04/03/24 Linda Block MD 6[address] [facility] [address] [place] [address] [employer] Journalist CLINICAL CARDIAC ELECTROPHYSIOLOGY 02/08/17 04/12/23 documented as of this encounter
--- OUTSIDE RECORDS SUMMARY | 2024-09-03 19:16 | XMS_ITS | Encounter Summary ---
Author Organization [facility] Address [address] [place] [address]. [place] [address] [place] [address] Care Team Providers Care Speed Operator Name Role Phone Piyush Pandey MD, Amy E MD Primary Care Provider Encounter Details Date Type Department Care Team (Late st Contact Info) Description 03/28/2016 FRESH MEAT GRADER ONLY [facility] [address] [place] [address] Martin Bhatt MD [address] [place] [address] Social History Tobacco Use Types Packs/Day Years Used Date Smoking Tobacco: Former Sex and Gender Information Value Date Recorded Sex Assigned at Not on file Legal Sex Male 10:01 PM CDT Gender Identity Not on file Sexual Orientation Not on file documented as of this encounter Progress Notes * Martin Armstrong MD - 03/28/2016 8:32 AM CDT DATE: 03/28/16 @ 0603 [facility] PAGE 1 USER: [email or web address] Medication Reconciliation PHYNRXRI DISCHARGE MEDICATION INSTRUCTIONS BETHANYOBIE LAVELLE Location: 4W BMI: 34.2 MR#: [id number] Admit Date: 03/23/16 : 1955 M Weight: 99.451990 kg Height: 170.18 cm Allergies: No Known Drug Allergies Adverse: Attending Dr: MARTIN ROUSSEAU MD Medication Dose Route Schedule Instructions/Indications Copy given to Patient Note: It is important to keep an updated list of all prescription and over the counter medications you take. ALWAYS share this list with all the Doctors you see and review this list with your pharmacist each time you have a prescription filled Medications, Herbals, and Supplements Last Taken HOME MED AMIODARONE 400 MG 03/27/16 9:00am (PACERONE) 400 MG ORAL ONCE TAKE 400MG TONIGHT AND THEN START 200MG DAILY 03/28/14 HOME MED AMIODARONE 200 MG (PACERONE) 200 MG ORAL DAILY START 03/28/16 HOME MED AMLODIPINE 5 MG 03/27/16 9:00am (NORVASC) 5 MG ORAL DAILY blood pressure Patient Had Anti-Coagulant in the Past 72 Hours CONTINUED ON NEXT PAGE ACCESS ID: DATE: 03/28/16 @ 0603 [facility] LIVE PAGE 2 USER: [email or web address] Medication Reconciliation PHYNRXRI DISCHARGE MEDICATION INSTRUCTIONS BETHANY,OBIE VALDERRAMA Location: 4W BMI: 34.2 MR#: [id number] Admit Date: 03/23/16 : 1955 M Weight: 99.888848 kg Height: 170.18 cm Allergies: No Known Drug Allergies Adverse: Attending Dr: MARTIN ROUSSEAU MD Medications, Herbals, and Supplements Last Taken Medication Dose Route Schedule Instructions/Indications HOME MED ASPIRIN 81 MG 03/27/16 9:00am (CHILDREN'S ASPIRIN) 81 MG ORAL DAILY blood thinner HOME MED ATORVASTATIN 20 MG 03/27/16 9:00am (LIPITOR) 20 MG ORAL DAILY high cholesterol AMBULATORY MED CARVEDILOL 25 MG (COREG) 25 MG ORAL TWICE A DAY Days: 90 HOME MED FUROSEMIDE 40 MG (LASIX) 40 MG ORAL PRN DAILY BLOOD PRESSURE/ water pill Patient Had Anti-Coagulant in the Past 72 Hours CONTINUED ON NEXT PAGE ACCESS ID: DATE: 03/28/16 @ 0603 [facility] PAGE 3 USER: [email or web address] Medication Reconciliation PHYNRXRI DISCHARGE MEDICATION INSTRUCTIONS OBIE SIMS LAVELLE Location: 4W BMI: 34.2 MR#: [id number] Admit Date: 03/23/16 : 1955 M Weight: 99.716998 kg Height: 170.18 cm Allergies: No Known Drug Allergies Adverse: Attending Dr: MARTIN ROUSSEAU MD Medications, Herbals, and Supplements Last Taken Medication Dose Route Schedule Instructions/Indications HOME MED HYDROCODONE/ACETAMINOPHEN 5-500 MG 1-2 CAP (HYDROCODON-ACETAMINOPHEN 5-500) 1-2 CAP ORAL BEDTIME NEEDED for PAIN Refills: 0 pain HOME MED LISINOPRIL 20 MG 03/27/16 9:00am (ZESTRIL) 20 MG ORAL DAILY high blood pressure HOME MED METFORMIN 1000 MG 03/27/16 9:00am (GLUCOPHAGE) 1000 MG ORAL TWICE DAILY WITH MEALS diabetes HOME MED PRAZOSIN HCL 2 MG 03/22/16 9:00pm (MINIPRESS) 2 MG ORAL BEDTIME Patient Had Anti-Coagulant in the Past 72 Hours CONTINUED ON NEXT PAGE ACCESS ID: DATE: 03/28/16 @ 0603 [facility] PAGE 4 USER: [email or web address] Medication Reconciliation PHYNRXRI DISCHARGE MEDICATION INSTRUCTIONS BETHANYOBIE LAVELLE Location: 4W BMI: 34.2 MR#: [id number] Admit Date: 03/23/16 : 1955 M Weight: 99.712823 kg Height: 170.18 cm Allergies: No Known Drug Allergies Adverse: Attending Dr: MARTIN ROUSSEAU MD Medications, Herbals, and Supplements Last Taken Medication Dose Route Schedule Instructions/Indications HOME MED TRAZODONE 100 MG 03/26/16 9:00pm (TRAZODONE) 100 MG ORAL BEDTIME sleep HOME MED WARFARIN 7MG 7 MG 03/26/16 9:00pm (WARFARIN 7MG) 7 MG ORAL DAILY BLOOD THINNER Patient Had Anti-Coagulant in the Past 72 Hours CONTINUED ON NEXT PAGE ACCESS ID: DATE: 03/28/16 @ 0603 [facility] PAGE 5 USER: [email or web address] Medication Reconciliation PHYNRXRI DISCHARGE MEDICATION INSTRUCTIONS OBIE SIMS Location: 4W BMI: 34.2 MR#: [id number] Admit Date: 03/23/16 : 1955 M Weight: 99.118978 kg Height: 170.18 cm Allergies: No Known Drug Allergies Adverse: Attending Dr: MARTIN ROUSSEAU MD Medication Dose Route Schedule Instructions/Indications Note [...] Contact Info) Description 09/25/2024 2:00 PM ASSISTANT GOLF PROFESSIONAL Appointment [facility] [address] [place] [address] Zayra Powell, [facility] [address] [place] [address] 10/16/2024 3:30 PM ASSISTANT GOLF PROFESSIONAL Office Visit [facility] [address] [place] [phone] Brit Gonzáles MD 619 [place] [address] documented as of this encounter Visit Diagnoses Not on filedocumented in this encounter Care Teams Speed Operator Relationship Specialty Start Date End Date Megan Infante MD [address] [place] [address] PCP - General FAMILY PRACTICE 04/06/16 Piyush Pandey MD [place] Lasting Machine Operator Bed CARDIOVASCULAR DISEASE 04/06/16 12/28/23 documented as of this encounter
--- OUTSIDE RECORDS SUMMARY | 2024-09-03 19:16 | XMS_ITS | Encounter Summary ---
Author Organization [facility] Address [facility] [place] [address] [place] [address] Care Team Providers Care Occupational Therapist Home Based Name Role Phone Piyush Pandey MD Unavailable Unavailabl Megan Leos MD Primary Care Provider [phone] Sharmila Davis APRN, 21 DEALER-C Unavailable [phone] Linda Block MD Unavailable [phone] Encounter Details Date Type Department Care Team (Late st Contact Info) Description 05/16/2016 Orders [place] [address] , Generic Conversion, Social History [...] (Late Contact Info) Description 09/25/2024 2:00 PM FISH HOUSEKEEPER Appointment [facility] [address] [place] [address] Zayra Powell, CHANGE CONTROL COORDINATOR [address] [place] [address] 10/16/2024 3:30 PM FISH HOUSEKEEPER Office Visit [facility] [address] [place] [address] Brit Gonzáles MD [address]19 [place] [address] documented as of this encounter Procedures Procedure Name Priority Date/Time Associated Diagnosis Comments MAGNESIUM TIMED 05/16/2016 5:08 AM CDT documented in this encounter Results * MAGNESIUM (05/16/2016 5:08 AM CDT) MAGNESIUM 2.2 1.6 - 2.6 MG/DL 05/16/2016 6:04 AM CDT [facility] SERUM OR PLASMA SPECIMEN / Unknown 05/16/2016 5:08 AM CDT 05/16/2016 5:25 AM CDT us Generic Conversion Md [facility] Final R esult [facility] [address] [place] [address], [id number] documented in this encounter Visit Diagnoses Not on filedocumented in this encounter Care Teams Occupational Therapist Home Based Relationship Specialty Start Date End Date Megan Infante MD [address] [facility] [place] [address] PCP - General FAMILY PRACTICE 04/06/16 Piyush Pandey MD [place] [employer] Moving Supervisor CARDIOVASCULAR DISEASE 04/06/16 12/28/23 Sharmila Davis APRN, 21 DEALER-C [address] [phone] NURSE PRACTITIONER 01/04/17 04/03/24 Linda Block MD 619 [facility] [address] [phone] [place] [employer] Moving Supervisor CLINICAL CARDIAC ELECTROPHYSIOLOGY 02/08/17 04/12/23 documented as of this encounter
--- OUTSIDE RECORDS SUMMARY | 2024-09-03 19:17 | XMS_ITS | Encounter Summary ---
Author Organization [facility] Address [facility] [place] [address] [place] [address] Care Team Providers Care Candy Department Manager Name Role Phone Piyush Pandey MD Unavailable UnavailMegan Rodriguez MD Primary Care Provider [phone] Sharmila Davis APRN, STRIPPING SHOVEL OPERATOR-C Unavailable Linda Block MD Unavailable [phone] Encounter Details Date Type Department Care Team (Latest Contact Info) Description 03/26/2016 Abstract [facility] Social History Tobacco Use Types [...] st Contact Info) Description 09/25/2024 2:00 PM APPEALS NURSE Appointment [facility] [address] [place] [address] Zayra Powell, OPERATING ROOM MANAGER [address] [place] [address] 10/16/2024 3:30 PM APPEALS NURSE Office Visit [facility] [address] [place] [address] Brit Gonzáles MD 619 [place], [place] [phone] documented as of this encounter Visit Diagnoses Not on filedocumented in this encounter Care Teams Candy Department Manager Relationship Specialty Start Date End Date Megan Infante MD [address] [facility] [place] [phone] PCP - General FAMILY PRACTICE 04/06/16 Piyush Pandey MD [place] Spot Washer CARDIOVASCULAR DISEASE 04/06/16 12/28/23 Sharmila Davis, SERVICE DISPATCHER, STRIPPING SHOVEL OPERATOR-C [address] [facility] [address] [place] [address] NURSE PRACTITIONER 01/04/17 04/03/24 Linda Block MD 619 [facility] [address] [place] [phone] [place] Spot Washer CLINICAL CARDIAC ELECTROPHYSIOLOGY 02/08/17 04/12/23 documented as of this encounter
--- OUTSIDE RECORDS SUMMARY | 2024-09-03 19:17 | XMS_ITS | Encounter Summary ---
Author Organization [facility] Address [facility]6 [facility] [place] [address] [place] [address] Care Team Providers Care Marble Machine Operator Name Role Phone Piyush Pandey MD Unavailable UnavailMegan Rodriguez MD Primary Care Provider [phone] Sharmila Davis APRN, SUPERVISOR DOG LICENSE OFFICER-C Unavailable Linda Block MD Unavailable [phone] Encounter Details Date Type Department Care Team (Late st Contact Info) Description 03/24/2016 Orders Only ROSALES CONVERSION [place], [place] [id number] , Generic Conversion, Social History Tobacco Use [...] st Contact Info) Description 09/25/2024 2:00 PM FUNERAL PRE NEED CONSULTANT Appointment [facility] [address] [place] [address] Zayra Powell, AUTOBODY TECHNICIAN [address] [place] [address] 10/16/2024 3:30 PM FUNERAL PRE NEED CONSULTANT Office Visit [facility] [address] [place] [phone] Brit Gonzáles MD 619 [place] [address] documented as of this encounter Procedures Procedure Name Priority Date/Time Associated Diagnosis Comments POCT GLUCOSE - VALLECILLO DOCKED DEVICE Routine 03/24/2016 7:08 AM CDT documented in this encounter Results * (ABNORMAL) POCT glucose (03/24/2016 7:08 AM CDT) GLUCOSE POC 156(H) 70 - 109 03/24/2016 7:11 AM CDT [facility] ORDERS INTERFACE Comment:RN Notified WHOLE BLOOD SPECIMEN / Unknown 03/24/2016 7:08 AM CDT 03/24/2016 7:11 AM CDT us Generic Conversion Md LANDRY POCT ORDERABLES - DEVIC E Final Result [facility] ORDERS INTERFACE US documented in this encounter Visit Diagnoses Not on filedocumented in this encounter Care Teams Marble Machine Operator Relationship Specialty Start Date End Date Megan Infante MD [address] [place] [phone] PCP - General FAMILY PRACTICE 04/06/16 Piyush Pandey MD [place] Equipment Services Associate CARDIOVASCULAR DISEASE 04/06/16 12/28/23 Sharmila Davis APRN, SUPERVISOR DOG LICENSE OFFICER-C [address] [facility] [address] [place] [address] NURSE PRACTITIONER 01/04/17 04/03/24 Linda Block MD 619 [facility] [address] [place] [phone] [place] Equipment Services Associate CLINICAL CARDIAC ELECTROPHYSIOLOGY 02/08/17 04/12/23 documented as of this encounter
--- OUTSIDE RECORDS SUMMARY | 2024-09-03 19:17 | XMS_ITS | Encounter Summary ---
Author Organization [facility] Address [facility]6 [facility] [place] [address] [place] [address] Care Team Providers Care Rotating Field Assembler Name Role Phone Piyush Pandey MD Unavailable UnavailMegan Rodriguez MD Primary Care Provider [phone] Sharmila Davis APRN, MEDICAL ASSEMBLER-C Unavailable Linda Block MD Unavailable [phone] Encounter Details Date Type Department Care Team (Late st Contact Info) Description 03/26/2016 Orders Only ROSALES CONVERSION ONE [place], [place] [id number] , Generic Conversion, Social History Tobacco Use [...] st Contact Info) Description 09/25/2024 2:00 PM WELT BEATER Appointment [facility] [address] [place] [address] Zayra Powell, ADVISORY INTERN [address] [place] [address] 10/16/2024 3:30 PM WELT BEATER Office Visit [facility] [address] [place] [phone] Brit Gonzáles MD 619 [place] [address] documented as of this encounter Procedures Procedure Name Priority Date/Time Associated Diagnosis Comments BASIC METABOLIC PANEL Routine 03/26/2016 3:59 AM CDT documented in this encounter Results * (ABNORMAL) BASIC METABOLIC PANEL (03/26/2016 3:59 AM CDT) SODIUM S/P/B 136 135 - 147 MMOL/L 03/26/2016 4:42 AM CDT [facility] POTASSIUM S/P/B 4.2 3.5 - 5.0 MMOL/L 03/26/2016 4:42 AM CDT [facility] CHLORIDE S/P/B 101 98 - 107 MMOL/L 03/26/2016 4:42 AM CDT [facility] CO2 25.5 22 - 29 MMOL/L 03/26/2016 4:42 AM CDT [facility] GLUCOSE 144(H) 70 - 109 MG/DL 03/26/2016 4:42 AM CDT [facility] BUN 20 8 - 26 MG/DL 03/26/2016 4:42 AM CDT [facility] CREATININE S/P/B 1.51(H) 0.70 - 1.30 MG/DL 03/26/2016 4:42 AM CDT [facility] CALCIUM S/P/B 9.8 8.8 - 10.0 MG/DL 03/26/2016 4:42 AM CDT [facility] EGFR NON-AFR. AMER. 47(L) >60 ML/MIN/1.7 3 M2 03/26/2016 4:42 AM CDT [facility] EGFR AFR. AMER. 57(L) >60 ML/MIN/1.7 3 M2 03/26/2016 4:42 AM CDT [facility] ANION GAP 9.5 MMOL/L 03/26/2016 4:42 AM CDT [facility] OSMOLALITY (CALC) 277 MOSM/KG 03/26/2016 4:42 AM CDT [facility] PLASMA SPECIMEN / Unknown 03/26/2016 3:59 AM CDT 03/26/2016 4:00 AM CDT us Generic Conversion Md [facility] Final R esult [facility] [place] [address], [id number] documented in this encounter Visit Diagnoses Not on filedocumented in this encounter Care Teams Rotating Field Assembler Relationship Specialty Start Date End Date Megan Infante MD [address] [facility] [place] [address] PCP - General FAMILY PRACTICE 04/06/16 Piyush Pandey MD [place] Hadoop Admin CARDIOVASCULAR DISEASE 04/06/16 12/28/23 Sharmila Davis, ROTARY OPERATOR, MEDICAL ASSEMBLER-C [address] [facility] [address] [place] [address] NURSE PRACTITIONER 01/04/17 04/03/24 Linda Block MD [address] [facility] [address] [place] [address] [place] Hadoop Admin CLINICAL CARDIAC ELECTROPHYSIOLOGY 02/08/17 04/12/23 documented as of this encounter
--- OUTSIDE RECORDS SUMMARY | 2024-09-03 19:17 | XMS_ITS | Encounter Summary ---
Author Organization [facility] Address [facility]6 [facility] [place] [address] [place] [address] Care Team Providers Care Shipyard Helper Name Role Phone Piyush Pandey MD Unavailable UnavailMegan Rodriguez MD Primary Care Provider [phone] Shramila Davis APRN, MARKETING FINANCE SPECIALIST-C Unavailable Linda Block MD Unavailable [phone] Encounter Details Date Type Department Care Team (Late st Contact Info) Description 03/26/2016 Orders Only ROSALES CONVERSION [address] [place], [place] [id number] , Generic Conversion, Social History Tobacco Use [...] Contact Info) Description 09/25/2024 2:00 PM DATA SOLUTIONS ARCHITECT Appointment [facility] [address] [place] [address] Zayra Powell, SALES REPRESENTATIVE GRAPHIC ART [address] [place] [address] 10/16/2024 3:30 PM DATA SOLUTIONS ARCHITECT Office Visit [facility] [address] [place] [phone] Brit Gonzáles MD 619 [place] [address] documented as of this encounter Procedures Procedure Name Priority Date/Time Associated Diagnosis Comments PROTHROMBIN TIME, VENOUS Routine 03/26/2016 4:00 AM CDT documented in this encounter Results * (ABNORMAL) PROTIME/INR, VENOUS (03/26/2016 4:00 AM CDT) PROTIME 24.0(H) 11.6 - 14.3 SEC 03/26/2016 4:17 AM CDT [facility] INR 2.2(H) 0.9 - 1.1 03/26/2016 4:17 AM CDT [facility] 03/26/2016 4:00 AM CDT 03/26/2016 4:01 AM CDT us Generic Conversion Md [facility] Final R esult [facility] [address] [place] [address], [id number] documented in this encounter Visit Diagnoses Not on filedocumented in this encounter Care Teams Shipyard Helper Relationship Specialty Start Date End Date Megan Infante MD [address] [facility] [place] [phone] PCP - General FAMILY PRACTICE 04/06/16 Piyush Pandey MD [place] Missile Technician CARDIOVASCULAR DISEASE 04/06/16 12/28/23 Sharmila Davis APRN, MARKETING FINANCE SPECIALIST-C [address] [address] NURSE PRACTITIONER 01/04/17 04/03/24 Linda Block MD [address] [place] [address] [place] Missile Technician CLINICAL CARDIAC ELECTROPHYSIOLOGY 02/08/17 04/12/23 documented as of this encounter
--- OUTSIDE RECORDS SUMMARY | 2024-09-03 19:17 | XMS_ITS | Encounter Summary ---
Author Organization [facility] Address [facility]6 [place] [address] [place] [address] Care Team Providers Care Cut Filer Name Role Phone Piyush Pandey MD Unavailable UnavailMegan Rodriguez MD Primary Care Provider [phone] Sharmila Davis APRN, EXHIBIT CARPENTER-C Unavailable Linda Block MD Unavailable [phone] Encounter Details Date Type Department Care Team (Late st Contact Info) Description 03/26/2016 Orders Only ROSALES CONVERSION [address] [place], [place] [id number] , Generic Conversion, Social History Tobacco Use [...] st Contact Info) Description 09/25/2024 2:00 PM EXPORT DOCUMENTS CLERK Appointment [facility] [address] [place] [address] Zayra Powell, BALANCE BRIDGE ASSEMBLER [address] [place] [address] 10/16/2024 3:30 PM EXPORT DOCUMENTS CLERK Office Visit [facility] [address] [place] [phone] Brit Gonzáles MD 619 [place] [address] documented as of this encounter Procedures Procedure Name Priority Date/Time Associated Diagnosis Comments POCT GLUCOSE - VALLECILLO DOCKED DEVICE Routine 03/26/2016 6:51 PM CDT documented in this encounter Results * POCT glucose (03/26/2016 6:51 PM CDT) GLUCOSE POC 98 70 - 109 03/26/2016 6:53 PM CDT [facility] ORDERS INTERFACE WHOLE BLOOD SPECIMEN / Unknown 03/26/2016 6:51 PM CDT 03/26/2016 6:53 PM CDT us Generic Conversion Md LANDRY POCT ORDERABLES - DEVIC E Final Result [facility] ORDERS INTERFACE US documented in this encounter Visit Diagnoses Not on filedocumented in this encounter Care Teams Cut Filer Relationship Specialty Start Date End Date Megan Infante MD [address] [facility] [place] [phone] PCP - General FAMILY PRACTICE 04/06/16 Piyush Pandey MD [place] [employer] Boat [employer] Barge Loader CARDIOVASCULAR DISEASE 04/06/16 12/28/23 Sharmila Davis, ASSOCIATE PROFESSOR OF LAW, EXHIBIT CARPENTER-C [address] [facility] [address] [place] [address] NURSE PRACTITIONER 01/04/17 04/03/24 Linda Block MD 619 [facility] [address] [place] [address] [place] [employer] Boat [employer] Barge Loader CLINICAL CARDIAC ELECTROPHYSIOLOGY 02/08/17 04/12/23 documented as of this encounter
--- OUTSIDE RECORDS SUMMARY | 2024-09-03 19:17 | XMS_ITS | Encounter Summary ---
Author Organization [facility] Address [facility]6 [facility] [place] [address] [place] [address] Care Team Providers Care Rn Ortho Name Role Phone Piyush Pandey MD Unavailable UnavailMegan Rodriguez MD Primary Care Provider [phone] Sharmila Davis APRN, PROFILE TRIMMER-C Unavailable Linda Block MD Unavailable [phone] Encounter Details Date Type Department Care Team (Late st Contact Info) Description 10/23/2015 Orders Only [facility] CONVERSION ONE [place], [place] [id number] , Generic Conversion, Social History Tobacco Use Types Packs/Day Years Used Date Smoking Tobacco: Never Assessed Sex and Gender Information Value Date Recorded Sex Assigned at Not on file Legal Sex Male 10:01 PM CDT Gender Identity Not on file Sexual Orientation Not on file documented as of this encounter Plan of Treatment Upcoming Encounters Date Type Department Care Team (Late st Contact Info) Description 09/25/2024 2:00 PM FIT MODEL Appointment [facility] [address] [place] [address] Zayra Powell, CHAIR [address] [place] [address] 10/16/2024 3:30 PM FIT MODEL Office Visit [facility] [address] [place] [phone] Brit Gonzáles MD [address] [place] [address] documented as of this encounter Procedures Procedure Name Priority Date/Time Associated Diagnosis Comments ACT (HMT OR LHMT) Routine 10/23/2015 3:1 1 PM FIT MODEL documented in this encounter Results * (ABNORMAL) ACT (HMT OR LHMT) (10/23/2015 3:11 PM FIT MODEL) ACTIVATED CLOTTING TIME (ACT HMT OR LMT) 257(H) 74 - 137 SEC 10/23/2015 3:15 PM FIT MODEL [facility] ORDERS INTERFACE WHOLE BLOOD SPECIMEN / Unknown 10/23/2015 3:11 PM FIT MODEL 10/23/2015 3:15 PM FIT MODEL us Generic Conversion Md [facility] LAB BLOOD ORDERABLES Fi nal Result Performing Organization Address City/State/[facility] Co de Phone Number [facility] [place] [address], documented in this encounter Visit Diagnoses Not on filedocumented in this encounter Care Teams Rn Ortho Relationship Specialty Start Date End Date Megan Infante MD [address] [facility] [place] [address] PCP - General FAMILY PRACTICE 04/06/16 Piyush Pandey MD [employer] Teacher CARDIOVASCULAR DISEASE 04/06/16 12/28/23 Sharmila Davis APRN, PROFILE TRIMMER-C [address] [facility] [address] [place] [phone] NURSE PRACTITIONER 01/04/17 04/03/24 Linda Block MD [address] [facility] [address] [place] [phone] [employer] Teacher CLINICAL CARDIAC ELECTROPHYSIOLOGY 02/08/17 04/12/23 documented as of this encounter
--- OUTSIDE RECORDS SUMMARY | 2024-09-03 19:17 | XMS_ITS | Encounter Summary ---
Author Organization [facility] Address [facility] [place] [address] [place] [address] Care Team Providers Care Slasher Name Role Phone Piyush Pandey MD Unavailable UnavailMegan Rodriguez MD Primary Care Provider [phone] Sharmila Davis APRN, CITRIX ARCHITECT-C Unavailable Linda Block MD Unavailable [phone] Encounter Details Date Type Department Care Team (Late st Contact Info) Description 03/24/2016 Orders Only [facility] CONVERSION ONE [place], [place] [id number] , Generic Conversion, Social History Tobacco Use [...] st Contact Info) Description 09/25/2024 2:00 PM SUBACUTE NURSE Appointment [facility] [address] [place] [address] Zayra Powell, STEREO EQUIPMENT INSTALLER [address] [place] [address] 10/16/2024 3:30 PM SUBACUTE NURSE Office Visit [facility] [address] [place] [phone] Brit Gonzáles MD [address] [place] [address] documented as of this encounter Procedures Procedure Name Priority Date/Time Associated Diagnosis Comments PROTHROMBIN TIME, VENOUS TIMED 03/24/2016 7:14 AM CDT documented in this encounter Results * (ABNORMAL) PROTIME/INR, VENOUS (03/24/2016 7:14 AM CDT) PROTIME 20.0(H) 11.6 - 14.3 SEC 03/24/2016 7:30 AM CDT [facility] INR 1.7(H) 0.9 - 1.1 03/24/2016 7:30 AM CDT [facility] 03/24/2016 7:14 AM CDT 03/24/2016 7:15 AM CDT us Generic Conversion Md [facility] Final R esult [facility] [address] [place] [address], [id number] documented in this encounter Visit Diagnoses Not on filedocumented in this encounter Care Teams Slasher Relationship Specialty Start Date End Date Megan Infante MD [address] [facility] [place] [phone] PCP - General FAMILY PRACTICE 04/06/16 Piyush Pandey MD [place] [employer] CARDIOVASCULAR DISEASE 04/06/16 12/28/23 Sharmila Davis APRN, CITRIX ARCHITECT-C [address] [address] NURSE PRACTITIONER 01/04/17 04/03/24 Linda Block MD [address] [place] [address] [place] [employer] CLINICAL CARDIAC ELECTROPHYSIOLOGY 02/08/17 04/12/23 documented as of this encounter
--- OUTSIDE RECORDS SUMMARY | 2024-09-03 19:17 | XMS_ITS | Encounter Summary ---
Author Organization [facility] Address [address] [place] [address]. [place] [address] [place] [address] Care Team Providers Care Instructor Bus Trolley And Taxi Name Role Phone Piyush Pandey MD [facility] MD Primary Care Provider [phone] Encounter Details Date Type Department Care Team (Late st Contact Info) Description 03/24/2016 Orders Only [facility] [address] [place] [address] Linda Block MD [address] [facility] [address] [place] [address] Social History Tobacco Use Types [...] st Contact Info) Description 09/25/2024 2:00 PM SAND CASTER APPRENTICE Appointment [facility] [address] [place] [address] Zayra Powell, GRILL PREP COOK [address] [place] [address] 10/16/2024 3:30 PM SAND CASTER APPRENTICE Office Visit [facility] [address] [place] [phone] Brit Gonzáles MD [address] [place] [address] documented as of this encounter Procedures Procedure Name Priority Date/Time Associated Diagnosis Comments USE TRANSESOPHAGEAL ECHO 03/24/2016 10:41 AM CDT documented in this encounter Results * USE TRANSESOPHAGEAL ECHO (03/24/2016 10:41 AM CDT) Anatomical Region Laterality Modality Cardiac Echocardiogram 03/24/2016 10:4 1 AM CDT Narrative 03/24/2016 12:00 AM CDT ?Transesophageal Echocardiography Report Pat.Name: ??OBIE SIMS ?Pat.ID: ?[id number] ? St.Date: ?? 03/24/2016 ?Refer.: ??SIERRA GENTILE ? Exam Time: 10:41:00 AM ? Study Type:TRANSESOPHAGEAL ECHO W/CONT Height: ?66.93in ? Weight: ?217.95lb ? BSA: ? 2.1 m2 ?Age: ??1955,60Y ? Sex: ? MALE ?BP: ?182/79 ? HR: ?118 bpm ? Sonogrphr: Keenan Molina RD, JOCELIN Pat. Stat.:Inpatient ? Room: ?468 ? CPT - 4: ?? [id number] ? Reason for Study:Atrial fibrillation / flutter Procedures:Intraveneous saline contrast was used to help determine presence of intracardiac shunting., Transesophageal Race: ?C ? ++++++++++++++++++++++++++++++++++++ SUMMARY: ++++++++++++++++++++++++++++++++++++ The left ventricular systolic function is mild to moderately depressed. Estimated left ventricular ejection fraction is 35-40%. The right ventricular size is mildly enlarged. Right ventricular systolic function is mildly depressed. The left atrial size is severely enlarged. Left atrial appendage shows no evidence of thrombus. The agitated saline injection showed no clear evidence of shunting into the left atrium, consistent with no patent foramen ovale. No significant valvular abnormalities notes. DCCV to follow. ++++++++++++++++++++++++++++++++++++ FINDINGS: ++++++++++++++++++++++++++++++++++++ LV: ? The left ventricular size is normal. The left ventricular ?systolic ??function is mild to moderately depressed. ?Estimated ??left ventricular ejection fraction is 35-40%. RV: ? The right ventricular size is mildly enlarged. Right ?ventricular ??systolic function is mildly depressed. LA: ? The left atrial size is severely enlarged. Left atrial ?appendage ??shows no evidence of thrombus. RA: ? Right atrial size is severely enlarged. IAS: ?The agitated saline injection showed no clear evidence of ?shunting ??into the left atrium, consistent with no patent ?foramen ??ovale. ANYA: ? No evidence of pericardial effusion. AO: ? The aorta is atherosclerotic. PVn: ?The pulmonary vein doppler wave form is blunted suggestive ?of ??elevated left atrial pressures. AV: ? No evidence of aortic valve regurgitation. Aortic valve ?prosthesis ??with normal function. MV: ? Structurally normal mitral valve. Mild mitral regurgitation. PV: ? Structurally normal pulmonic valve. Trace pulmonic ?regurgitation. TV: ? Structurally normal tricuspid valve. Mild tricuspid ?regurgitation. ++++++++++++++++++++++++++++++++++++ NEMO: ++++++++++++++++++++++++++++++++++++ Pre NEMO ?BP ?? HR ? Post NEMO ? BP ?? HR ?182/79 118 Meds: ?Benzocaine spray was used with 2 sprays., Midazolam/Versed 6 mg IV, Fentanyl 150 mcg IV ++++++++++++++++++++++++++++++++++++ MEASUREMENTS: ++++++++++++++++++++++++++++++++++++ ?DOPPLER AV Forward Flow AV mnVel ? 172 cm/s ? AV pkVel ? 260 cm/s (100-170)* AV mnPG ? 14 mmHg ?AV pkPG ? 27 mmHg AV TVI ?52 cm ? AV Antegrade Flow AC ?95 ms ?Acceleration Sl ??2695 cm/s2 Signed 04/07/2016 11:58 AM Martin Perry M.D. Procedure Note Martin Armstrong MD - 04/07/2016 Transesophageal Echocardiography Report Pat.Name: OBIE SIMS Pat.ID: [id number] St.Date: 03/24/2016 Refer.: SIERRA GENTILE Exam Time: 10:41:00 AM Study Type:TRANSESOPHAGEAL ECHO W/CONT Height: 66.93in Weight: 217.95lb BSA: 2.1 m2 Age: 11 1955,60Y Sex: MALE BP: 182/79 HR: 118 bpm Sonogrphr: Keenan Molina RDCS, JOCELIN [place]. Stat.:Inpatient Room: [facility] CPT - 4: [id number] Reason for Study:Atrial fibrillation / flutter Procedures:Intraveneous saline contrast was used to help determine presence of intracardiac shunting., Transesophageal Race: C ++++++++++++++++++++++++++++++++++++ SUMMARY: ++++++++++++++++++++++++++++++++++++ The left ventricular systolic function is mild to moderately depressed. Estimated left ventricular ejection fraction is 35-40%. The right ventricular size is mildly enlarged. Right ventricular systolic function is mildly depressed. The left atrial size is severely enlarged. Left atrial appendage shows no evidence of thrombus. The agitated saline injection showed no clear evidence of shunting into the left atrium, consistent with no patent foramen ovale. No significant valvular abnormalities notes. DCCV to follow. ++++++++++++++++++++++++++++++++++++ FINDINGS: ++++++++++++++++++++++++++++++++++++ LV: The left ventricular size is normal. The left ventricular systolic function is mild to moderately depressed. Estimated left ventricular ejection fraction is 35-40%. RV: The right ventricular size is mildly enlarged. Right ventricular systolic function is mildly depressed. LA: The left atrial size is severely enlarged. Left atrial appendage shows no evidence of thrombus. RA: Right atrial size is severely enlarged. IAS: The agitated saline injection showed no clear evidence of shunting into the left atrium, consistent with no patent foramen ovale. ANYA: No evidence of pericardial effusion. AO: The aorta is atherosclerotic. PVn: The pulmonary vein doppler wave form is blunted suggestive of elevated left atrial pressures. AV: No evidence of aortic valve regurgitation. Aortic valve prosthesis with normal function. MV: Structurally normal mitral valve. Mild mitral regurgitation. PV: Structurally normal pulmonic valve. Trace pulmonic regurgitation. TV: Structurally normal tricuspid valve. Mild tricuspid regurgitation. ++++++++++++++++++++++++++++++++++++ NEMO: ++++++++++++++++++++++++++++++++++++ Pre NEMO BP HR Post NEMO BP HR 182/79 118 Meds: Benzocaine spray was used with 2 sprays., Midazolam/Versed 6 mg IV, Fentanyl 150 mcg IV ++++++++++++++++++++++++++++++++++++ MEASUREMENTS: ++++++++++++++++++++++++++++++++++++ DOPPLER AV Forward Flow AV mnVel 172 cm/s AV pkVel 260 cm/s (100-170)* AV mnPG 14 mmHg AV pkPG 27 mmHg AV TVI 52 cm AV Antegrade Flow AC 95 ms Acceleration Sl 2695 cm/s2 Signed 04/07/2016 11:58 AM Martin Perry M.D. us Linda Block MD ECHO Final Result documented in this encounter Visit Diagnoses Not on filedocumented in this encounter Care Teams Instructor Bus Trolley And Taxi Relationship Specialty Start Date End Date Megan Infante MD [address] [place] [address] PCP - General FAMILY PRACTICE 04/06/16 Piyush Pandey MD [place] Eligibility Consultant CARDIOVASCULAR DISEASE 04/06/16 12/28/23 documented as of this encounter
--- OUTSIDE RECORDS SUMMARY | 2024-09-03 19:17 | XMS_ITS | Encounter Summary ---
Author Organization [facility] Address [facility]6 [facility] [place] [address] [place] [address] Care Team Providers Care Prescription Clerk Name Role Phone Piyush Pandey MD Unavailable Unavailabl e Megan Infante MD Primary Care Provider [phone] Sharmila Davis APRN, SUPERVISOR PAPER COATING-C Unavailable [phone] Linda Block MD Unavailable [phone] Encounter Details Date Type Department Care Team (Late st Contact Info) Description 03/23/[address] [facility] [address] [place] [address] Martin Bhatt MD [address] [place] [address] Social History Tobacco Use Types [...] st Contact Info) Description 09/25/2024 2:00 PM DUPLICATOR PUNCH OPERATOR Appointment [facility] [address] [place] [address] Zayra Powell, TECHNICIAN ASSISTANT [address] [place], [place] [phone] 10/16/2024 3:30 PM DUPLICATOR PUNCH OPERATOR [facility] [address] [place] [address] Brit Gonzáles MD [address] [place] [address] documented as of this encounter Visit Diagnoses Diagnosis Atrial fibrillation (CMS/HCC HHS/HCC) Atrial fibrillation documented in this encounter Care Teams Prescription Clerk Relationship Specialty Start Date End Date Megan Infante MD [address] [facility] [place] [phone] PCP - General FAMILY PRACTICE 04/06/16 Piyush Pandey MD [place] Cvt Rn CARDIOVASCULAR DISEASE 04/06/16 12/28/23 Sharmila Davis, BRAZING MACHINE TENDER, SUPERVISOR PAPER COATING-C [address] [facility] [address] [place] [address] NURSE PRACTITIONER 01/04/17 04/03/24 Linda Block MD [address] [facility] [address] [place] [address] [place] Cvt Rn CLINICAL CARDIAC ELECTROPHYSIOLOGY 02/08/17 04/12/23 documented as of this encounter
--- OUTSIDE RECORDS SUMMARY | 2024-09-03 19:17 | XMS_ITS | Encounter Summary ---
Author Organization [facility] Address [facility] [place] [address] [place] [address] Care Team Providers Care Mortarman Name Role Phone Piyush Pandey MD Unavailable UnavailMegan Rodriguez MD Primary Care Provider [phone] Sharmila Davis APRN, BARREL POLISHER-C Unavailable [phone] Linda Block MD Unavailable [phone] Encounter Details Date Type Department Care Team (Late st Contact Info) Description 10/23/2015 Orders Only [facility] CONVERSION [place], [place] [id number] , Generic Conversion, Social History Tobacco Use [...] st Contact Info) Description 09/25/2024 2:00 PM STRUCTURES ASSEMBLER Appointment [facility] [address] [place] [address] Zayra Powell, FISHING VESSEL MATE [address] [place] [address] 10/16/2024 3:30 PM STRUCTURES ASSEMBLER Office Visit [facility] [address] [place] [address] Brit Gonzáles MD [address] [place] [address] documented as of this encounter Procedures Procedure Name Priority Date/Time Associated Diagnosis Comments ACT (HMT OR LHMT) Routine 10/23/2015 3:4 4 PM STRUCTURES ASSEMBLER documented in this encounter Results * ACT (HMT OR LHMT) (10/23/2015 3:44 PM STRUCTURES ASSEMBLER) ACTIVATED CLOTTING TIME (ACT HMT OR LMT) 134 74 - 137 SEC 10/23/2015 3:46 PM STRUCTURES ASSEMBLER [facility] ORDERS INTERFACE WHOLE BLOOD SPECIMEN / Unknown 10/23/2015 3:44 PM STRUCTURES ASSEMBLER 10/23/2015 3:46 PM STRUCTURES ASSEMBLER us Generic Conversion Md [facility] LAB BLOOD ORDERABLES Fi nal Result [facility] LAB [place] [address], documented in this encounter Visit Diagnoses Not on filedocumented in this encounter Care Teams Mortarman Relationship Specialty [place] [address] [place] [address] [place] [phone] PCP - General FAMILY PRACTICE 04/06/16 Piyush Pandey MD [place] Cigar Head Piercer CARDIOVASCULAR DISEASE 04/06/16 12/28/23 Sharmila Davis APRN, BARREL POLISHER-C [address] [facility] [address] [place] [address] NURSE PRACTITIONER 01/04/17 04/03/24 Linda Block MD [address] [facility] [address] [place] [address] [place] Cig[employer] Head Piercer CLINICAL CARDIAC ELECTROPHYSIOLOGY 02/08/17 04/12/23 documented as of this encounter
--- OUTSIDE RECORDS SUMMARY | 2024-09-03 19:17 | XMS_ITS | Encounter Summary ---
Author Organization [facility] Address [facility]6 [facility] [place] [address] [place] [address] Care Team Providers Care Senior Product Engineer Name Role Phone Piyush Pandey MD Unavailable UnavailMegan Rodriguez MD Primary Care Provider [phone] Sharmila Davis APRN, PROCESS MOLD TECHNICIAN-C Unavailable Marlee Vega MD Unavailable [phone] Encounter Details Date Type Department Care Team (Latest Contact Info) Description 10/24/2015 Abstract [facility] Social History Tobacco Use [...] st Contact Info) Description 09/25/2024 2:00 PM MERCURY CRACKING TESTER Appointment [facility] [address] [place] [address] Zayra Powell, LAWYERS [address] [place] [address] 10/16/2024 3:30 PM MERCURY CRACKING TESTER Office Visit [facility] [address] [place] [address] Brit Gonzáles MD [address] [place], [place] [phone] documented as of this encounter Procedures Procedure Name Priority Date/Time Associated Diagnosis Comments ECG 12-LEAD Routine 10/24/2015 7:42 AM MERCURY CRACKING TESTER documented in this encounter Results * ECG 12 lead (10/24/2015 7:42 AM MERCURY CRACKING TESTER) 10/24/2015 7:42 AM MERCURY CRACKING TESTER Narrative [facility] - 10/24/2015 9:06 PM MERCURY CRACKING TESTER ? [facility] ? [address] [place], [place] ??[address] ? Test Date: ?2015-10-24 Pat Name: ? OBIE SIMS ?Department: ?? 1 ? Room: ? CRU0 Gender: ? M ?Saloon Keeper: ?? gs fs : ?1955 ? Requested By: MARLEE VEGA Order Number: [id number] ? Reading MD: ?? Jimenez Brady ? Measurements Intervals ?[place] ? Rate: ? 60 ? P: ?31 SC: ? 216 ?QRS: ?-19 QRSD: ? 135 ?T: ?129 QT: ? 467 ? QTc: ?469 ? Interpretive Statements SINUS RHYTHM WITH FIRST DEGREE AV BLOCK LEFT BUNDLE BRANCH BLOCK URY CRACKING TESTER Procedure Note Eun Landry MD - 04/18/[address] [address] Test Date: 2015-10-24 Pat Name: OBIE SIMS Department: 1 Room: [facility] Gender: M Saloon Keeper: gs fs : 1955 Requested By: MARLEE VEGA Order Number: [id number] Reading MD: Jimenez Brady Measurements Intervals [place] Rate: 60 P: 31 SC: 216 QRS: -19 QRSD: 135 T: 129 QT: 467 QTc: 469 Interpretive Statements SINUS RHYTHM WITH FIRST DEGREE AV BLOCK LEFT BUNDLE BRANCH BLOCK URY CRACKING TESTER us Generic Conversion Md [facility] ECG ORDERABLES Final R esult [facility] documented in this encounter Visit Diagnoses Not on filedocumented in this encounter Care Teams Senior Product Engineer Relationship Specialty Start Date End Date Megan Infante MD [address] [address] PCP - General FAMILY PRACTICE 04/06/16 Piyush Pandey MD [place] Needle Maker CARDIOVASCULAR DISEASE 04/06/16 12/28/23 Sharmila Davis APRN, PROCESS MOLD TECHNICIAN-C [address] [facility] [address] [place] [phone] NURSE PRACTITIONER 01/04/17 04/03/24 Marlee Vega MD [address] [place] [facility] [address] [place] [phone] [place] Needle Maker CLINICAL CARDIAC ELECTROPHYSIOLOGY 02/08/17 04/12/23 documented as of this encounter
--- OUTSIDE RECORDS SUMMARY | 2024-09-03 19:17 | XMS_ITS | Encounter Summary ---
Author Organization [facility] Address [facility] [facility] [place] [address] [place] [address] Care Team Providers Care Crew Director Name Role Phone Piyush Pandey MD Unavailable UnavailMegan Rodriguez MD Primary Care Provider [phone] Sharmila Davis APRN, CAMPUS DIRECTOR-C Unavailable Marlee Block MD Unavailable [phone] Encounter Details Date Type Department Care Team (Latest Contact Info) Description 10/23/2015 Abstract [facility] Medical Group Social History Tobacco [...] st Contact Info) Description 09/25/2024 2:00 PM SUSTAINABILITY COACH Appointment [facility] [address] [place] [address] Zayra Powell, SUPERVISOR ANODIZING [address] [place] [address] 10/16/2024 3:30 PM SUSTAINABILITY COACH Office Visit [facility] [address] [place] [address] Brit Gonzáles MD [address] [place], [place] [phone] documented as of this encounter Procedures Procedure Name Priority Date/Time Associated Diagnosis Comments ECG 12-LEAD Routine 10/23/2015 5:24 PM SUSTAINABILITY COACH ECG 12-LEAD Routine 10/23/2015 10:17 AM SUSTAINABILITY COACH documented in this encounter Results * ECG 12 lead (10/23/2015 5:24 PM SUSTAINABILITY COACH) 10/23/2015 5:24 PM SUSTAINABILITY COACH Narrative [facility] - 10/23/2015 9:27 PM SUSTAINABILITY COACH ? [facility] ? [address], [place] ??[address] ? Test Date: ?2015-10-23 Pat Name: ? OBIE SIMS ?Department: ?? 1 ? Room: ? CRU0 Gender: ? M ?Cardiopulmonary Technologist Chief: ?? LUIS F PERAZA : ?1955 ? Requested By: MARLEE BLOCK Order Number: [id number] ? Reading : ?? Job Vizcarra ? Measurements Intervals ?[place] ? Rate: ? 64 ? P: ?59 NH: ? 222 ?QRS: ?-12 QRSD: ? 128 ?T: ?124 QT: ? 460 ? QTc: ?476 ? Interpretive Statements SINUS RHYTHM WITH FIRST DEGREE AV BLOCK POSSIBLE ANTERIOR MYOCARDIAL INFARCTION, OF INDETERMINATE AGE MODERATE T-WAVE ABNORMALITY, CONSIDER LATERAL ISCHEMIA AINABILITY COACH Procedure Note Eun Landry MD - 04/18/2019 [facility] [address] [place] [address] Test Date: 2015-10-23 Pat Name: OBIE SIMS Department: 1 Room: [facility] Gender: M Cardiopulmonary Technologist Chief: LUIS F PERAZA : 1955 Requested By: MARLEE BLOCK Order Number: [id number] Reading MD: Job Vizcarra Measurements Intervals [place] Rate: 64 P: 59 NH: 222 QRS: -12 QRSD: 128 T: 124 QT: 460 QTc: 476 Interpretive Statements SINUS RHYTHM WITH FIRST DEGREE AV BLOCK POSSIBLE ANTERIOR MYOCARDIAL INFARCTION, OF INDETERMINATE AGE MODERATE T-WAVE ABNORMALITY, CONSIDER LATERAL ISCHEMIA AINABILITY COACH us Generic Conversion Md LANDRY ECG ORDERABLES Final R esult [facility] * ECG 12 lead (10/23/2015 10:17 AM SUSTAINABILITY COACH) 10/23/2015 10:1 7 AM SUSTAINABILITY COACH Narrative [facility] - 10/23/2015 11:29 AM SUSTAINABILITY COACH ? [facility] ? [address], [place] ??[address] ? Test Date: ?2015-10-23 Pat Name: ? OBIE SIMS ?Department: ?? 1 ? Room: ? Gender: ? M ?Cardiopulmonary Technologist Chief: ?? ruma HERRON: ?1955 ? Requested By: MARLEE BLOCK Order Number: [id number] ? Reading : ?? Job Vizcarra ? Measurements Intervals ?[place] ? Rate: ? 60 ? P: ?-22 NH: ? 172 ?QRS: ?-20 QRSD: ? 130 ?T: ?122 QT: ? 447 ? QTc: ?447 ? Interpretive Statements SINUS RHYTHM LEFT BUNDLE BRANCH BLOCK AINABILITY COACH Procedure Note , Eun Tejead MD - 04/18/2019 [place] [address] [place] [address] Test Date: 2015-10-23 Pat Name: OBIE SIMS Department: 1 Room: Gender: M Cardiopulmonary Technologist Chief: ruma : 1955 Requested By: MARLEE BLOCK Order Number: [id number] Reading MD: Job Vizcarra Measurements Intervals [place] Rate: 60 P: -22 NH: 172 QRS: -20 QRSD: 130 T: 122 QT: 447 QTc: 447 Interpretive Statements SINUS RHYTHM LEFT BUNDLE BRANCH BLOCK AINABILITY COACH us Generic Conversion Md LANDRY ECG ORDERABLES Final R esult [facility] documented in this encounter Visit Diagnoses Not on filedocumented in this encounter Care Teams Crew Director Relationship Specialty Start Date End Date Megan Infante MD [address] [facility] [place] [address] PCP - General FAMILY PRACTICE 04/06/16 Piyush Pandey MD Green Transfer Machine Operator CARDIOVASCULAR DISEASE 04/06/16 12/28/23 Sharmila Davis, CHILD CARE SITTER, CAMPUS DIRECTOR-C [address] [facility] [address] [place] [address] NURSE PRACTITIONER 01/04/17 04/03/24 Marlee Block MD [address] [facility] [address] [place] [address] Green Transfer Machine Operator CLINICAL CARDIAC ELECTROPHYSIOLOGY 02/08/17 04/12/23 documented as of this encounter
--- OUTSIDE RECORDS SUMMARY | 2024-09-03 19:17 | XMS_ITS | Encounter Summary ---
Author Organization [facility] Address Critical access hospital6 [facility] [address] [place] [address] Care Team Providers Care Station Detective Name Role Phone Piyush Pandey MD Unavailable UnavailMegan Rodriguez MD Primary Care Provider [phone] Sharmila Davis APRN, BUYER AGENT-C Unavailable Linda Block MD Unavailable [phone] Encounter Details Date Type Department Care Team (Late st Contact Info) Description 10/23/2015 Orders Only [facility]ALES CONVERSION [place], [place] [id number] , Generic Conversion, Social History Tobacco Use [...] Contact Info) Description 09/25/2024 2:00 PM EMERGENCY GENERATOR MECHANIC Appointment [facility] [address] [place] [address] Zayra Powell, EVALUATION SPECIALIST [address] [place] [address] 10/16/2024 3:30 PM EMERGENCY GENERATOR MECHANIC Office Visit [facility] [address] [place] [phone] Birt Gonzáles MD [address] [place] [address] documented as of this encounter Procedures Procedure Name Priority Date/Time Associated Diagnosis Comments POCT GLUCOSE - VALLECILLO DOCKED DEVICE Routine 10/23/2015 5:24 PM EMERGENCY GENERATOR MECHANIC documented in this encounter Results * POCT glucose (10/23/2015 5:24 PM EMERGENCY GENERATOR MECHANIC) [facility] Signature GLUCOSE POC 103 70 - 109 10/23/2015 5:29 PM EMERGENCY GENERATOR MECHANIC [facility] LAB ORDERS INTERFACE WHOLE BLOOD SPECIMEN / Unknown 10/23/2015 5:24 PM EMERGENCY GENERATOR MECHANIC 10/23/2015 5:29 PM EMERGENCY GENERATOR MECHANIC us Generic Conversion Md LANDRY POCT ORDERABLES - DEVIC E Final Result [facility] [place] [address], documented in this encounter Visit Diagnoses Not on filedocumented in this encounter Care Teams Station Detective Relationship Specialty Start Date End Date Megan Infante MD [address] [facility] [place] [phone] PCP - General FAMILY PRACTICE 04/06/16 Piyush Pandey MD [place] Prest[employer] Log Operator CARDIOVASCULAR DISEASE 04/06/16 12/28/23 Sharmila Davis, TRAINING ANALYST, BUYER AGENT-C [address] [facility] [address] [place] [address] NURSE PRACTITIONER 01/04/17 04/03/24 Linda Block MD [address] [facility] [address] [place] [address] [place] Presto Log Operator CLINICAL CARDIAC ELECTROPHYSIOLOGY 02/08/17 04/12/23 documented as of this encounter
--- OUTSIDE RECORDS SUMMARY | 2024-09-03 19:17 | XMS_ITS | Encounter Summary ---
Author Organization [facility] Address [address] [place] [address]. [place] [address] [place] [address] Care Team Providers Care Chimney Builder Name Role Phone Unavailable Primary Care Provider Unavailabl e Encounter Details Date Type Department Care Team (Late st Contact Info) Description 01/27/2016 [facility] [address] [place] [address] , Eun Tejeda MD Social History Tobacco Use Types Packs/Day Years Used Date Smoking Tobacco: Former Sex and Gender Information Value Date Recorded Sex Assigned at Not on file Legal Sex Male 10:01 PM CDT Gender Identity Not on file Sexual Orientation Not on file documented as of this encounter Last Filed Vital Signs Vital Sign Reading Time Taken Comments Blood Pressure 164/80 01/27/2016 9:09 AM CDT Pulse 65 01/27/2016 9:09 AM CDT Temperature - - Respiratory Rate 16 01/27/2016 9:09 AM CDT Oxygen Saturation - - Inhaled Oxygen Concentration - - Weight 102.5 kg (226 lb) 01/27/2016 9:09 AM CDT Height 167.6 cm (5' 6 ) 01/27/2016 9:09 AM CDT Body Mass Index 36.48 01/27/2016 9:09 AM CDT documented in this encounter Plan of Treatment Upcoming Encounters Date Type Department Care Team (Late st Contact Info) Description 09/25/2024 2:00 PM SOAP SLABBER Appointment [facility] [address] [place] [address] Zayra Powell, HOSPICE ART THERAPIST [address] [place] [address] 10/16/2024 3:30 PM SOAP SLABBER Office Visit [facility] [place] [place] [address] Brit Gonzáles MD [address] [place] [address] documented as of this encounter Procedures Procedure Name Priority Date/Time Associated Diagnosis Comments EXTERNAL EJECTION FRACTION Routine 01/27/2016 12:00 AM CDT documented in this encounter Results * EXTERNAL EJECTION FRACTION (01/27/2016 12:00 AM CDT) EJECTION FRACTION 40 HS HS LAB ORDERS INTERFACE Comment:Normal LV size Moder ately reduced EF, 40% Mild LAE Moderate , EMILE=1.0 and peak velocity 2.9 Unremarkable mitral valve Note that patient is in NSR during study Anatomical Region Laterality Modality Other 01/27/2016 01/27/2016 Narrative 01/27/2016 12:00 AM CDT Echo with Cardiac Doppler, us Generic Conversion Md LANDRY OTHER Final R esult documented in this encounter Visit Diagnoses Not on filedocumented in this encounter
--- OUTSIDE RECORDS SUMMARY | 2024-09-03 19:17 | XMS_ITS | Encounter Summary ---
Author Organization [facility] Address [facility]6 [facility] [place] [address] [place] [address] Care Team Providers Care Plant Production Manager Name Role Phone Piyush Pandey MD Unavailable UnavailMegan Rodriguez MD Primary Care Provider [phone] Sharmila Davis APRN, CONSTRUCTION PROJECT MGR-C Unavailable [phone] Linda Block MD Unavailable [phone] Encounter Details Date Type Department Care Team (Late st Contact Info) Description 03/25/2016 Orders Only ROSALES CONVERSION [place], [place] [id number] , Generic Conversion, Social History Tobacco Use [...] st Contact Info) Description 09/25/2024 2:00 PM LOGGING ENGINEER Appointment [facility] [address] [place] [address] Zayra Powell, SUPERVISOR INSECTICIDE [address] [place] [address] 10/16/2024 3:30 PM LOGGING ENGINEER Office Visit [facility] [address] [place] [phone] Brit Gonzáles MD 619 [place] [address] documented as of this encounter Procedures Procedure Name Priority Date/Time Associated Diagnosis Comments POCT GLUCOSE - VALLECILLO DOCKED DEVICE Routine 03/25/2016 9:50 PM CDT documented in this encounter Results * POCT glucose (03/25/2016 9:50 PM CDT) GLUCOSE POC 105 70 - 109 03/25/2016 9:57 PM CDT [facility] LAB ORDERS INTERFACE WHOLE BLOOD SPECIMEN / Unknown 03/25/2016 9:50 PM CDT 03/25/2016 9:57 PM CDT us Generic Conversion Md LANDRY POCT ORDERABLES - DEVIC E Final Result [facility] LAB ORDERS INTERFACE [place] documented in this encounter Visit Diagnoses Not on filedocumented in this encounter Care Teams Plant Production Manager Relationship Specialty Start Date End Date Megan Infante MD [address] [facility] [place] [address] PCP - General FAMILY PRACTICE 04/06/16 Piyush Pandey MD [place] [employer] Canceling Machine Operator CARDIOVASCULAR DISEASE 04/06/16 12/28/23 Sharmila Davis, DIPLOMATIC INTERPRETER/TRANSLATOR, CONSTRUCTION PROJECT MGR-C [address] [facility] [address] [place] [address] NURSE PRACTITIONER 01/04/17 04/03/24 Linda Block MD [address] [facility] [address] [place] [address] [place] Sealing And Canceling Machine Operator CLINICAL CARDIAC ELECTROPHYSIOLOGY 02/08/17 04/12/23 documented as of this encounter
--- OUTSIDE RECORDS SUMMARY | 2024-09-03 19:17 | XMS_ITS | Encounter Summary ---
Author Organization [facility] Address [facility] [place] [address] [place] [address] Care Team Providers Care Corporate Development Officer Name Role Phone Piyush Pandey MD Unavailable UnavailMegan Rodriguez MD Primary Care Provider [phone] Sharmila Davis APRN, NEGATIVE RESTORER-C Unavailable Linda Block MD Unavailable [phone] Encounter Details Date Type Department Care Team (Late st Contact Info) Description 03/23/2016 Orders Only [facility] CONVERSION [place], [place] [id number] , Generic Conversion, Social History Tobacco Use [...] st Contact Info) Description 09/25/2024 2:00 PM BAG PRESSER Appointment [facility] [address] [place] [address] Zayra Powell, AREA REPRESENTATIVE [address] [place] [address] 10/16/2024 3:30 PM BAG PRESSER Office Visit [facility] [address] [place] [phone] Brit Gonzáles MD 619 [place] [address] documented as of this encounter Procedures Procedure Name Priority Date/Time Associated Diagnosis Comments PROTHROMBIN TIME, VENOUS NOW 03/23/2016 3:41 PM CDT documented in this encounter Results * (ABNORMAL) PROTIME/INR, VENOUS (03/23/2016 3:41 PM CDT) PROTIME 18.8(H) 11.6 - 14.3 SEC 03/23/2016 4:[address] [facility] INR 1.6(H) 0.9 - 1.1 03/23/2016 4:[address] [facility] 03/23/2016 3:41 PM CDT 03/23/2016 3:50 PM CDT us Generic Conversion Md [facility] Final R esult [facility] [address] [place] [address], [id number] documented in this encounter Visit Diagnoses Not on filedocumented in this encounter Care Teams Corporate Development Officer Relationship Specialty Start Date End Date Megan Infante MD [address] [facility] [place] [address] PCP - General FAMILY PRACTICE 04/06/16 Piyush Pandey MD [place] Director Card CARDIOVASCULAR DISEASE 04/06/16 12/28/23 Sharmila Davis APRN, NEGATIVE RESTORER-C [address] [address] NURSE PRACTITIONER 01/04/17 04/03/24 Linda Block MD [address] [place] [address] [place] Director Card CLINICAL CARDIAC ELECTROPHYSIOLOGY 02/08/17 04/12/23 documented as of this encounter
--- OUTSIDE RECORDS SUMMARY | 2024-09-03 19:17 | XMS_ITS | Encounter Summary ---
Author Organization [facility] Address [address] [place] [address]. [place] [address] [place] [address] Care Team Providers Care Expediter Clerk Name Role Phone Piyush Pandey MD [facility] MD Primary Care Provider [phone] Encounter Details Date Type Department Care Team (Late st Contact Info) Description 03/23/2016 PROCESS CONTROLS TECHNICIAN ONLY [facility] [address] [place] [address] Julia Maurer PA-C [address] [facility] [address] [place] [address] Social History Tobacco Use Types [...] st Contact Info) Description 09/25/2024 2:00 PM LIVING SPECIALIST Appointment [facility] [address] [place] [address] Zayra Powell, HEAD COUNSELOR [address] [place] [address] 10/16/2024 3:30 PM LIVING SPECIALIST Office Visit [facility] [address] [place] [phone] Brit Gonzáles MD [address] [place] [address] documented as of this encounter Visit Diagnoses Not on filedocumented in this encounter Care Teams Expediter Clerk Relationship Specialty Start Date End Date Megan Infante MD [address] [facility] [place] [address] PCP - General FAMILY PRACTICE 04/06/16 Piyush Pandey MD [place] Surgeon/General Dermatologist CARDIOVASCULAR DISEASE 04/06/16 12/28/23 documented as of this encounter
--- OUTSIDE RECORDS SUMMARY | 2024-09-03 19:17 | XMS_ITS | Encounter Summary ---
Author Organization [facility] Address [address] [place] [address]. [place] [address] [place] [address] Care Team Providers Care Hobber Name Role Phone Piyush Pandey MD [facility] Megan Bridges MD Primary Care Provider Encounter Details Date Type Department Care Team (Late st Contact Info) Description 03/25/2016 DIRECTOR OF TEACHING AND LEARNING ONLY [facility] [address] [place] [address] Martin Bhatt MD [address] [place] [address] Social History Tobacco Use Types Packs/Day Years Used Date Smoking Tobacco: Former Sex and Gender Information Value Date Recorded Sex Assigned at Not on file Legal Sex Male 10:01 PM CDT Gender Identity Not on file Sexual Orientation Not on file documented as of this encounter Progress Notes * Martin Armstrong MD - 03/24/2016 12:09 PM CDT NAME: OBIE SIMS [facility] ROOM: [address] [place] [address] : 1955 CARDIOSTUDY ADMITTED: 03/23/16 1504 Adm: MARTIN PERRY MD DISCHARGED: Date/Time Dictated: 03/24/16 1209 Transcribed Date/Time: 03/24/16 2302 cc: Martin Perry M.D. Chart Document Direct current cardioversion report DATE OF PROCEDURE 03/24/2016. procedure TRANSESOPHAGEAL ECHOCARDIOGRAM GUIDED DIRECT CURRENT CARDIOVERSION. indication Atrial fibrillation. DENTAL LABORATORY SUPERVISOR Martin Perry MD DESCRIPTION After informed consent was obtained, Mr. Sims was brought to the echocardiography laboratory. Under continuous EKG, pulse oximetry, and capnography monitoring sedation with Versed and fentanyl was administered. He underwent a transesophageal echocardiogram without complications. Please see separate report. There was no evidence of intracardiac thrombus. His INR was subtherapeutic and he received 100 mg subcutaneously enoxaparin prior to cardioversion. With respiratory therapy in the room, he received additional sedation and underwent one synchronized shock of 150 joules with successful uatsdin of sinus rhythm. He was monitored in the echocardiography laboratory per protocol and will be transferred back to his room once recovery is completed. An EKG has been ordered to document his rhythm. He will continue therapy with subcutaneous enoxaparin until his INR is equal to or greater than 2.0. He will continue antiarrhythmic therapy as directed by Dr. Blcok. IMPRESSION Successful cardioversion with one synchronized shock of 150 joules. COMPLICATIONS None. Electronically Signed By: Martin Perry M.D. 03/26/2016 10:05 P Martin Perry M.D. documented in this encounter Plan of Treatment Upcoming Encounters Date Type Department Care Team (Late st Contact Info) Description 09/25/2024 2:00 PM TUBE MILL OPERATOR Appointment [facility] [address] [place] [address] Zayra Powell, AGRONOMY INSTRUCTOR [address] [place] [address] 10/16/2024 3:30 PM TUBE MILL OPERATOR Office Visit [facility] [address] [place] [address] Brit Gonzáles MD [address] [place] [address] [place] [address] documented as of this encounter Visit Diagnoses Not on filedocumented in this encounter Care Teams Hobber Relationship Specialty Start Date End Date Megan Infante MD [address] [facility] [place] [address] PCP - General FAMILY PRACTICE 04/06/16 Piyush Pandey MD [facility] CARDIOVASCULAR DISEASE 04/06/16 12/28/23 documented as of this encounter
--- OUTSIDE RECORDS SUMMARY | 2024-09-03 19:17 | XMS_ITS | Encounter Summary ---
Author Organization [facility] Address [facility]6 [facility] [place] [address] [place] [address] Care Team Providers Care Windows Server Administrator Name Role Phone Piyush Pandey MD Unavailable UnavailMegan Rodriguez MD Primary Care Provider [phone] Sahrmila Davis APRN, CRADLE PLACER-C Unavailable Linda Block MD Unavailable [phone] Encounter Details Date Type Department Care Team (Late st Contact Info) Description 10/24/2015 Orders Only ROSALES CONVERSION [address] [place], [place] [id number] , Generic Conversion, Social History Tobacco Use [...] st Contact Info) Description 09/25/2024 2:00 PM PRODUCT MARKETING ANALYST Appointment [facility] [address] [place] [address] Zayra Powell, SHEETMETAL PATTERNMAKER [address] [place] [address] 10/16/2024 3:30 PM PRODUCT MARKETING ANALYST Office Visit [facility] [address] [place] [phone] Brit Gonzáles MD [address]19 [place] [address] documented as of this encounter Procedures Procedure Name Priority Date/Time Associated Diagnosis Comments CBC W/DIFF AUTOMATED TIMED 10/24/2015 4:25 AM PRODUCT MARKETING ANALYST documented in this encounter Results * (ABNORMAL) CBC W/DIFF AUTOMATED (10/24/2015 4:25 AM PRODUCT MARKETING ANALYST) WBC 9.4 4.0 - 10.8 x10'3/uL 10/24/2015 4:55 AM PRODUCT MARKETING ANALYST [facility] LAB ORDERS INTERFACE RBC 4.08(L) 4.50 - 6.10 x10'6/uL 10/24/2015 4:55 AM PRODUCT MARKETING ANALYST [facility] LAB ORDERS INTERFACE HGB 11.6(L) 13.0 - 18.0 G/DL 10/24/2015 4:55 AM PRODUCT MARKETING ANALYST [facility] LAB ORDERS INTERFACE HCT 35.0(L) 37.0 - 52.0 % 10/24/2015 4:55 AM PRODUCT MARKETING ANALYST [facility] LAB ORDERS INTERFACE MCV 85.8 78.0 - 100.0 FL 10/24/2015 4:55 AM PRODUCT MARKETING ANALYST [facility] LAB ORDERS INTERFACE MCH 28.4 27.0 - 31.0 PG 10/24/2015 4:55 AM PRODUCT MARKETING ANALYST [facility] LAB ORDERS INTERFACE MCHC 33.1 33.0 - 36.0 G/DL 10/24/2015 4:55 AM PRODUCT MARKETING ANALYST [facility] LAB ORDERS INTERFACE RDW 13.9 11.5 - 14.5 % 10/24/2015 4:55 AM PRODUCT MARKETING ANALYST [facility] LAB ORDERS INTERFACE PLT 174 150 - 350 x10'3/uL 10/24/2015 4:55 AM PRODUCT MARKETING ANALYST [facility] LAB ORDERS INTERFACE MPV 11.0(H) 7.4 - 10.4 FL 10/24/2015 4:55 AM PRODUCT MARKETING ANALYST [facility] LAB ORDERS INTERFACE ABS. NEUTROPHILS TOTAL 6.73 1.60 - 8.30 x10'3/uL 10/24/2015 4:55 AM PRODUCT MARKETING ANALYST [facility] LAB ORDERS INTERFACE ABS. LYMPHOCYTES 1.44 0.80 - 4.70 x10'3/uL 10/24/2015 4:55 AM PRODUCT MARKETING ANALYST [facility] LAB ORDERS INTERFACE ABS. MONOCYTES 1.09 0.00 - 1.50 x10'3/uL 10/24/2015 4:55 AM PRODUCT MARKETING ANALYST [facility] LAB ORDERS INTERFACE ABS. EOSINOPHILS 0.13 0.00 - 0.40 x10'3/uL 10/24/2015 4:55 AM PRODUCT MARKETING ANALYST [facility] LAB ORDERS INTERFACE ABS. BASOPHILS 0.03 0.00 - 0.20 x10'3/uL 10/24/2015 4:55 AM PRODUCT MARKETING ANALYST [facility] LAB ORDERS INTERFACE ABS. IMMATURE GRANULOCYTES 0.02 0.00 - 0.03 x10'3/uL 10/24/2015 4:55 AM PRODUCT MARKETING ANALYST [facility] LAB ORDERS INTERFACE ABS. NUCLEATED RBC'S 0.00 0.0 x10'3/uL 10/24/2015 4:55 AM PRODUCT MARKETING ANALYST [facility] LAB ORDERS INTERFACE PLASMA SPECIMEN / Unknown 10/24/2015 4:25 AM PRODUCT MARKETING ANALYST 10/24/2015 4:44 AM PRODUCT MARKETING ANALYST us Generic Conversion Md [facility] Final R esult [place] [address], documented in this encounter Visit Diagnoses Not on filedocumented in this encounter Care Teams Windows Server Administrator Relationship Specialty Start [place] [address] [place] [address] [place] [phone] PCP - General FAMILY PRACTICE 04/06/16 Piyush Pandey MD [place] [employer] Associate CARDIOVASCULAR DISEASE 04/06/16 12/28/23 Sharmila Davis APRN, CRADLE PLACER-C [address] [facility] [address] [place] [phone] NURSE PRACTITIONER 01/04/17 04/03/24 Linda Block MD [address] [facility] [address] [place] [phone] [place] [employer] Associate CLINICAL CARDIAC ELECTROPHYSIOLOGY 02/08/17 04/12/23 documented as of this encounter
--- OUTSIDE RECORDS SUMMARY | 2024-09-03 19:17 | XMS_ITS | Encounter Summary ---
Author Organization [facility] Address [address] [place] [address]. [place] [address] [place] [address] Care Team Providers Care Senior Publications Specialist Name Role Phone Unavailable Primary Care Provider Unavailabl e Encounter Details Date Type Department Care Team (Late st Contact Info) Description 11/25/2015 Abstract [facility] [address] [place] [phone] , Eun Tejeda MD Social History Tobacco Use Types Packs/Day Years Used Date Smoking Tobacco: Never Assessed Sex and Gender Information Value Date Recorded Sex Assigned at Not on file Legal Sex Male 10:01 PM CDT Gender Identity Not on file Sexual Orientation Not on file documented as of this encounter Last Filed Vital Signs Vital Sign Reading Time Taken Comments Blood Pressure 158/82 11/25/2015 12:12 PM CDT Pulse 59 11/25/2015 12:12 PM CDT Regular Temperature - - Respiratory Rate 14 11/25/2015 12:1 2 PM CDT Oxygen Saturation - - Inhaled Oxygen Concentration - - Weight 101.8 kg (224 lb 6.4 oz) 016 12:12 PM CDT Height 167.6 cm (5' 6 ) 11/25/2015 12:1 2 PM CDT Body Mass Index 36.22 11/25/2015 12:12 PM CDT documented in this encounter Plan of Treatment Upcoming Encounters Date Type Department Care Team (Late st Contact Info) Description 09/25/2024 2:00 PM IS CONSULTANT Appointment [facility] [address] [place] [address] Zayra Powell, PIZZAMAKER [address] [place] [address] 10/16/2024 3:30 PM IS CONSULTANT Office Visit [facility] [place] [phone] Brit Gonzáles MD [address] [place] [address] documented as of this encounter Visit Diagnoses Not on filedocumented in this encounter
--- OUTSIDE RECORDS SUMMARY | 2024-09-03 19:17 | XMS_ITS | Encounter Summary ---
Author Organization [facility] Address [facility] [place] [address] [place] [address] Care Team Providers Care Designer Name Role Phone Piyush Pandey MD Unavailable UnavailMegan Rodriguez MD Primary Care Provider [phone] Sharmila Davis APRN, ELECTRICIAN SUBSTATION SUPERVISOR-C Unavailable Linda Block MD Unavailable [phone] Encounter Details Date Type Department Care Team (Latest Contact Info) Description 10/25/2015 Abstract [facility] Medical Group Social History Tobacco [...] st Contact Info) Description 09/25/2024 2:00 PM NAILER OPERATOR Appointment [facility] [address] [place] [address] Zayra Powell, PLATE SETTER [address] [place] [address] 10/16/2024 3:30 PM NAILER OPERATOR Office Visit [facility] [address] [place] [address] Brit Gonzáles MD [address] [place], [place] [phone] documented as of this encounter Visit Diagnoses Not on filedocumented in this encounter Care Teams Designer Relationship Specialty Start Date End Date Megan Infante MD [address] [facility] [place] [address] PCP - General FAMILY PRACTICE 04/06/16 Piyush Pandey MD [place] [employer] Power Electronics Engineer CARDIOVASCULAR DISEASE 04/06/16 12/28/23 Sharmila Davis APRN, ELECTRICIAN SUBSTATION SUPERVISOR-C [address] [facility] [address] [place] [phone] NURSE PRACTITIONER 01/04/17 04/03/24 Linda Block MD [address] [facility] [address] [place] [address] [place] [employer] Power Electronics Engineer CLINICAL CARDIAC ELECTROPHYSIOLOGY 02/08/17 04/12/23 documented as of this encounter
--- OUTSIDE RECORDS SUMMARY | 2024-09-03 19:17 | XMS_ITS | Encounter Summary ---
Author Organization [facility] Address [facility] [place] [address] [place] [address] Care Team Providers Care Painter Chassis Name Role Phone Piyush Pandey MD Unavailable UnavailMegan Rodriguez MD Primary Care Provider [phone] Sharmila Davis APRN, FACTORY EXPERT-C Unavailable Linda Block MD Unavailable [phone] Encounter Details Date Type Department Care Team (Late st Contact Info) Description 03/23/2016 Orders Only ROSALES CONVERSION ONE [place], [place] [id number] , Generic Conversion, Social History Tobacco Use [...] st Contact Info) Description 09/25/2024 2:00 PM SOLAR APPLICATIONS DEVELOPMENT ENGINEER Appointment [facility] [address] [place] [address] Zayra Powell, SHELTER DIRECTOR [address] [place] [address] 10/16/2024 3:30 PM SOLAR APPLICATIONS DEVELOPMENT ENGINEER Office Visit [facility] [address] [place] [phone] Brit Gonzáles MD 619 [place] [address] documented as of this encounter Procedures Procedure Name Priority Date/Time Associated Diagnosis Comments TROPONIN, QUANT STAT 03/23/2016 3:41 PM CDT documented in this encounter Results * (ABNORMAL) TROPONIN, QUANT (03/23/2016 3:41 PM CDT) TROPONIN I 0.034(H) 0.000 - 0.028 ng/mL. 03/23/2016 4:23 PM CDT [facility] SERUM OR PLASMA SPECIMEN / Unknown 03/23/2016 3:41 PM CDT 03/23/2016 3:50 PM CDT us Generic Conversion Md [facility] Final R esult [facility] [address] [place] [address], [id number] documented in this encounter Visit Diagnoses Not on filedocumented in this encounter Care Teams Painter Chassis Relationship Specialty Start Date End Date Megan Infante MD [address] [place] [phone] PCP - General FAMILY PRACTICE 04/06/16 Piyush Pandey MD [place] Software Build Engineer CARDIOVASCULAR DISEASE 04/06/16 12/28/23 Sharmila Davis APRN, FACTORY EXPERT-C 6[address] [facility] [address] [place] [address] NURSE PRACTITIONER 01/04/17 04/03/24 Linda Block MD 619 [facility] [address] [place] [phone] [place] [employer] Build Engineer CLINICAL CARDIAC ELECTROPHYSIOLOGY 02/08/17 04/12/23 documented as of this encounter
--- OUTSIDE RECORDS SUMMARY | 2024-09-03 19:17 | XMS_ITS | Encounter Summary ---
Author Organization [facility] Address [facility] [address] [place] [address] Care Team Providers Care Credit Controller Name Role Phone Piyush Pandey MD Unavailable Unavailabl e Megan Infante MD Primary Care Provider [phone] Sharmila Davis APRN, DERRICK BARGE OPERATOR-C Unavailable [phone] Linda Block MD Unavailable [phone] Encounter Details Date Type Department Care Team (Late st Contact Info) Description 10/21/[address] [facility] [address] [place] [address] Linda Block MD [address] [facility] [address] [place] [phone] Social History Tobacco Use Types Packs/Day Years [...] st Contact Info) Description 09/25/2024 2:00 PM MERCHANDISING ASSISTANT Appointment [facility] [address] [place] [address] Zayra Powell, MORTICIAN INVESTIGATOR [address] [place] [address] 10/16/2024 3:30 PM MERCHANDISING ASSISTANT [facility] [address] [facility] [address] Brit Gonzáles MD [address] [place] [address] documented as of this encounter Visit Diagnoses Diagnosis Chronic atrial fibrillation (CMS/HCC HHS/HCC) Atrial fibrillation documented in this encounter Care Teams Credit Controller Relationship Specialty Start Date End Date Megan Infante MD [address] [place] [place] [address] PCP - General FAMILY PRACTICE 04/06/16 Piyush Pandey MD [place] Supervisor Floor Assembly CARDIOVASCULAR DISEASE 04/06/16 12/28/23 Sharmila Davis, TRANSFORMER TESTER, DERRICK BARGE OPERATOR-C 6[address] [facility] [address] [place] [address] NURSE PRACTITIONER 01/04/17 04/03/24 Linda Block MD [address] [facility] [address] [place] [address] [place] Supervisor Floor Assembly CLINICAL CARDIAC ELECTROPHYSIOLOGY 02/08/17 04/12/23 documented as of this encounter
--- OUTSIDE RECORDS SUMMARY | 2024-09-03 19:17 | XMS_ITS | Encounter Summary ---
Author Organization [facility] Address [facility] [place] [address] [place] [address] Care Team Providers Care Clinical Rehab Specialist Name Role Phone Piyush Pandey MD Unavailable UnavailMegan Rodriguez MD Primary Care Provider [phone] Sharmila Davis APRN, SYSTEM CONSULTANT-C Unavailable Linda Block MD Unavailable [phone] Encounter Details Date Type Department Care Team (Latest Contact Info) Description 03/23/2016 Abstract [facility] Medical Group Social History Tobacco [...] st Contact Info) Description 09/25/2024 2:00 PM ACID SUPERVISOR Appointment [facility] [address] [place] [address] Zayra Powell, PLASTIC MOLDER [address] [place] [address] 10/16/2024 3:30 PM ACID SUPERVISOR Office Visit [facility] [address] [place] [address] Brit Gonzáles MD [address] [place], [place] [phone] documented as of this encounter Procedures Procedure Name Priority Date/Time Associated Diagnosis Comments ECG 12-LEAD Routine 03/23/2016 5:13 PM CDT documented in this encounter Results * ECG 12 lead (03/23/2016 5:13 PM CDT) 03/23/2016 5:13 PM CDT Narrative [facility] - 03/23/2016 6:08 PM CDT ? [facility] ? [address], [place] ??[address] ? Test Date: ?2016-03-23 Pat Name: ? OBIE SIMS ?Department: ?? 1 ? Room: ? 0468A Gender: ? M ?Cuff Knitter: ?? LUIS F HERRON: ?1955 ? Requested By: JESSICA ROUSSEAU Order Number: [id number] ? Reading MD: ?? Job Vizcarra ? Measurements Intervals ?[place] ? Rate: ? 80 ? P: ? [place]: ? 0 ?QRS: ?-16 QRSD: ? 130 ?T: ?145 QT: ? 408 ? QTc: ?472 ? Interpretive Statements ATRIAL FLUTTER/TACHYCARDIA MODERATE INTRAVENTRICULAR CONDUCTION DELAY ST DEVIATION AND MODERATE T-WAVE ABNORMALITY, CONSIDER LATERAL ISCHEMIA Procedure Note Eun Landry MD - 04/18/2019 [place] [address] [place] [address] Test Date: 2016-03-23 Pat Name: OBIE SIMS Department: 1 Room: 0468A Gender: M Cuff Knitter: LUIS F PERAZA : 1955 Requested By: JESSICA ROUSSEAU Order Number: [id number] Reading MD: Job Vizcarra Measurements Intervals [place] Rate: 80 P: [place]: 0 QRS: -16 QRSD: 130 T: 145 QT: 408 QTc: 472 Interpretive Statements ATRIAL FLUTTER/TACHYCARDIA MODERATE INTRAVENTRICULAR CONDUCTION DELAY ST DEVIATION AND MODERATE T-WAVE ABNORMALITY, CONSIDER LATERAL ISCHEMIA us Generic Conversion Md [facility] ECG ORDERABLES Final R esult [facility] documented in this encounter Visit Diagnoses Not on filedocumented in this encounter Care Teams Clinical Rehab Specialist Relationship Specialty Start Date End Date Megan Infante MD [address] [place] [phone] PCP - General FAMILY PRACTICE 04/06/16 Piyush Pandey MD [place] Steam Fitter Supervisor CARDIOVASCULAR DISEASE 04/06/16 12/28/23 Sharmila Davis, RECREATION ADVISER, SYSTEM CONSULTANT-C [address] [facility] [address] [place] [address] NURSE PRACTITIONER 01/04/17 04/03/24 Linda Block MD 619 [facility] [address] [place] [phone] [place] Steam Fitter Supervisor CLINICAL CARDIAC ELECTROPHYSIOLOGY 02/08/17 04/12/23 documented as of this encounter
--- OUTSIDE RECORDS SUMMARY | 2024-09-03 19:17 | XMS_ITS | Encounter Summary ---
Author Organization [facility] Address [facility] [place] [address] [place] [address] Care Team Providers Care Bracelet And Brooch Maker Name Role Phone Piyush Pandey MD Unavailable UnavailMegan Rodriguez MD Primary Care Provider [phone] Sharmila Davis APRN, SORT OPERATIONS SUPERVISOR-C Unavailable [phone] Linda Block MD Unavailable [phone] Encounter Details Date Type Department Care Team (Late st Contact Info) Description 03/23/2016 Orders Only ROSALES CONVERSION ONE [place], [place] [id number] , Generic Conversion, Social History Tobacco Use [...] st Contact Info) Description 09/25/2024 2:00 PM CUSTOMS DIRECTOR Appointment [facility] [address] [place] [address] Zayra Powell, STAVE AND BOLT EQUALIZER [address] [place] [address] 10/16/2024 3:30 PM CUSTOMS DIRECTOR Office Visit [facility] [address] [place] [phone] Brit Gonzáles MD 619 [place] [address] documented as of this encounter Procedures Procedure Name Priority Date/Time Associated Diagnosis Comments TROPONIN, QUANT TIMED 03/23/2016 11:28 PM CDT documented in this encounter Results * (ABNORMAL) TROPONIN, QUANT (03/23/2016 11:28 PM CDT) TROPONIN I 0.037(H) 0.000 - 0.028 ng/mL. 03/24/2016 12:[address] [facility] SERUM OR PLASMA SPECIMEN / Unknown 03/23/2016 11:28 PM CDT 03/23/2016 11:47 PM CDT us Generic Conversion Md [facility] Final R esult [facility] [address] [place] [address], [id number] documented in this encounter Visit Diagnoses Not on filedocumented in this encounter Care Teams Bracelet And Brooch Maker Relationship Specialty Start Date End Date Megan Infante MD [address] [facility] [place] [phone] PCP - General FAMILY PRACTICE 04/06/16 Piyush Pandey MD [place] Enrollment Processor CARDIOVASCULAR DISEASE 04/06/16 12/28/23 Sharmila Davis APRN, SORT OPERATIONS SUPERVISOR-C [address] [place] [address] [place] [address] NURSE PRACTITIONER 01/04/17 04/03/24 Linda Block MD 619 [facility] 47 [place] [address] [place] Enrollment Processor CLINICAL CARDIAC ELECTROPHYSIOLOGY 02/08/17 04/12/23 documented as of this encounter
--- OUTSIDE RECORDS SUMMARY | 2024-09-03 19:17 | XMS_ITS | Encounter Summary ---
Author Organization [facility] Address [facility]6 [facility] [place] [address] [place] [address] Care Team Providers Care Senior Tax Manager Name Role Phone Piyush Pandey MD Unavailable UnavailMegan Rodriguez MD Primary Care Provider [phone] Sharmila Davis APRN, IDENTITY ACCESS MANAGEMENT ARCHITECT-C Unavailable Linda Block MD Unavailable [phone] Encounter Details Date Type Department Care Team (Late st Contact Info) Description 03/24/2016 Orders Only ROSALES CONVERSION ONE [place], [place] [id number] , Generic Conversion, Social History Tobacco Use [...] st Contact Info) Description 09/25/2024 2:00 PM CAR RENTAL CLERK Appointment [facility] [address] [place] [address] Zayra Powell, CUBE CUTTER [address] [place] [address] 10/16/2024 3:30 PM CAR RENTAL CLERK Office Visit [facility] [address] [place] [phone] Brit Gonzáles MD 619 [place] [address] documented as of this encounter Procedures Procedure Name Priority Date/Time Associated Diagnosis Comments URINALYSIS Nurse Collected Priority 03/24/2016 7:55 PM CDT documented in this encounter Results * (ABNORMAL) URINALYSIS (03/24/2016 7:55 PM CDT) COLOR (U) LIGHT YELLOW 03/24/2016 9:[address] [facility] TRANSPARENCY CLEAR 03/24/2016 9:[address] [facility] SPECIFIC GRAVITY (U) 1.014 1.002 - 1.035 03/24/2016 9:[address] [facility] U PH 6.0 5 - 8 03/24/2016 9:[address] [facility] PROTEIN (U) 100(A) NEGATIVE 03/24/2016 9:[address] [facility] URINE GLUCOSE NEGATIVE NEGATIVE MG/DL 03/24/2016 9:[address] [facility] KETONES MG/DL (U) NEGATIVE NEGATIVE 03/24/2016 9:[address] [facility] BILIRUBIN (U) NEGATIVE NEGATIVE 03/24/2016 9:[address] [facility] BLOOD (U) NEGATIVE NEGATIVE 03/24/2016 9:[address] [facility] NITRITES NEGATIVE NEGATIVE 03/24/2016 9:[address] [facility] UROBILINOGEN NORMAL 0 - 1 EU/DL 03/24/2016 9:[address] [facility] LEUKOCYTES (U) NEGATIVE NEGATIVE 03/24/2016 9:[address] [facility] RBC/HPF NONE /HPF 03/24/2016 9:[address] [facility] WBC/HPF 1 /HPF 03/24/2016 9:[address] [facility] BACTERIA (U) NONE /HPF 03/24/2016 9:[address] [facility] SQUAMOUS EPITHELIALS <1 03/24/2016 9:[address] [facility] URINE SPECIMEN / Unknown 03/24/2016 7:55 PM CDT 03/24/2016 8:39 PM CDT us Generic Conversion Md [facility] URINE ORDERABLES Final Result [facility] [address] [place] [address], [id number] documented in this encounter Visit Diagnoses Not on filedocumented in this encounter Care Teams Senior Tax Manager Relationship Specialty Start Date End Date Megan Infante MD [address] [facility] [place] [phone] PCP - General FAMILY PRACTICE 04/06/16 Piyush Pandey MD [place] Ballet Soloist CARDIOVASCULAR DISEASE 04/06/16 12/28/23 Sharmila Davis APRN, IDENTITY ACCESS MANAGEMENT ARCHITECT-C [address] [facility] [address] [place] [address] NURSE PRACTITIONER 01/04/17 04/03/24 Linda Block MD 619 [facility] [address] [place] [address] [place] Ballet Soloist CLINICAL CARDIAC ELECTROPHYSIOLOGY 02/08/17 04/12/23 documented as of this encounter
--- OUTSIDE RECORDS SUMMARY | 2024-09-03 19:17 | XMS_ITS | Encounter Summary ---
Author Organization [facility] Address [facility] access hospital6 [facility] [place] [address] [place] [address] Care Team Providers Care Automation And Controls Supervisor Name Role Phone Piyush Pandey MD Unavailable UnavailMegan Rodriguez MD Primary Care Provider [phone] Sharmila Davis APRN, AUTHOR AGENT-C Unavailable [phone] Linda Block MD Unavailable [phone] Encounter Details Date Type Department Care Team (Late st Contact Info) Description 10/24/2015 Orders Only ROSALES CONVERSION ONE [place], [place] [id number] , Generic Conversion, Social History Tobacco Use [...] st Contact Info) Description 09/25/2024 2:00 PM CUTTER FIRST Appointment [facility] [address] [place] [address] Zayra Powell, CARDIOVASCULAR RADIOLOGIC TECHNOLOGIST [address] [place] [address] 10/16/2024 3:30 PM CUTTER FIRST Office Visit [facility] [address] [place] [phone] Brit Gonzáles MD 6[address] [place] [address] documented as of this encounter Procedures Procedure Name Priority Date/Time Associated Diagnosis Comments PROTHROMBIN TIME, VENOUS TIMED 10/24/2015 4:25 AM CUTTER FIRST documented in this encounter Results * PROTIME/INR, VENOUS (10/24/2015 4:25 AM CUTTER FIRST) PROTIME 13.3 11.6 - 14.3 SEC 10/24/2015 5:12 AM CUTTER FIRST [facility] ORDERS INTERFACE INR 1.0 0.9 - 1.1 10/24/2015 5:12 AM CUTTER FIRST [facility] ORDERS INTERFACE 10/24/2015 4:25 AM CUTTER FIRST 10/24/2015 4:43 AM CUTTER FIRST us Generic Conversion Md [facility] Final R esult Performing Organization Address City/State/[facility] Co de Phone Number [facility] ORDERS INTERFACE [address] documented in this encounter Visit Diagnoses Not on filedocumented in this encounter Care Teams Automation And Controls Supervisor Relationship Specialty Start Date End Date Mgean Infante MD [address] [facility] [place] [address] PCP - General FAMILY PRACTICE 04/06/16 Piyush Pandey MD [place] Millwright Instructor CARDIOVASCULAR DISEASE 04/06/16 12/28/23 Sharmila Davis APRN, AUTHOR AGENT-C [address] [facility] [address] [place] [address] NURSE PRACTITIONER 01/04/17 04/03/24 Linda Block MD [address] [facility] [address] [place] [address] [place] Millwright Instructor CLINICAL CARDIAC ELECTROPHYSIOLOGY 02/08/17 04/12/23 documented as of this encounter
--- OUTSIDE RECORDS SUMMARY | 2024-09-03 19:17 | XMS_ITS | Encounter Summary ---
Author Organization [facility] Address [facility] [place] [address] [place] [address] Care Team Providers Care Blast Furnace Operator Name Role Phone Piyush Pandey MD Unavailable UnavailMegan Rodriguez MD Primary Care Provider [phone] Sharmila Davis APRN, EGG CRATER-C Unavailable Linda Block MD Unavailable [phone] Encounter Details Date Type Department Care Team (Late st Contact Info) Description 10/23/2015 Orders Only ROSALES CONVERSION ONE [place], [place] [id number] , Generic Conversion, Social History Tobacco Use [...] st Contact Info) Description 09/25/2024 2:00 PM CASINO HOST Appointment [facility] [address] [place] [address] Zayra Powell, CONDUCTOR/BRAKEMAN [address] [place] [address] 10/16/2024 3:30 PM CASINO HOST Office Visit [facility] [address] [place] [phone] Brit Gonzáles MD [address]19 [place] [address] documented as of this encounter Procedures Procedure Name Priority Date/Time Associated Diagnosis Comments ACT (HMT OR LHMT) Routine 10/23/2015 2:0 7 PM CASINO HOST documented in this encounter Results * (ABNORMAL) ACT (HMT OR LHMT) (10/23/2015 2:07 PM CASINO HOST) ACTIVATED CLOTTING TIME (ACT HMT OR LMT) 312(H) 74 - 137 SEC 10/23/2015 2:12 PM CASINO HOST [facility] ORDERS INTERFACE WHOLE BLOOD SPECIMEN / Unknown 10/23/2015 2:07 PM CASINO HOST 10/23/2015 2:12 PM CASINO HOST us Generic Conversion Md [facility] BLOOD ORDERABLES Fi nal Result Performing Organization Address City/State/[facility] Co de Phone Number [facility] [place] [place] [address], documented in this encounter Visit Diagnoses Not on filedocumented in this encounter Care Teams Blast Furnace Operator Relationship Specialty Start Date End Date Megan Infante MD [address] [facility] [address] [place] [address] PCP - General FAMILY PRACTICE 04/06/16 Piyush Pandey MD [place] Director Of Emergency Nursing CARDIOVASCULAR DISEASE 04/06/16 12/28/23 Sharmila Davis APRN, EGG CRATER-C [address] [facility] [address] [place] [phone] NURSE PRACTITIONER 01/04/17 04/03/24 Linda Block MD [address] [facility] [address] [place] [address] [place] Director Of Emergency Nursing CLINICAL CARDIAC ELECTROPHYSIOLOGY 02/08/17 04/12/23 documented as of this encounter
--- OUTSIDE RECORDS SUMMARY | 2024-09-03 19:17 | XMS_ITS | Encounter Summary ---
Author Organization [facility] Address [address] [place] [address]. [place] [address] [place] [address] Care Team Providers Care Home Attendant Name Role Phone Unavailable Primary Care Provider Unavailabl e Reason for Visit * Reason Onset Date Comments Lab Results 03/23/2016 INR results from PCP Encounter Details Date Type Department Care Team (Late Contact Info) Description 03/23/2016 Telephone [facility] [address] [place] [address] Linda Block MD [address] [facility] [address] [place] [address] Lab Results (INR results from PCP) Social History Tobacco Use Types Packs/Day Years Used Date Smoking Tobacco: Former Sex and Gender Information Value Date Recorded Sex Assigned at Not on file Legal Sex Male 10:01 PM CDT Gender Identity Not on file Sexual Orientation Not on file documented as of this encounter Progress Notes * Theresa Oh RN - 03/23/2016 4:26 PM CDT Called PCP Dr Megan Infante to get most recent INR's. 6/3 2.5 Coumadin 6.5mg QD 02/06 3.3 Coumadin 6.5mg QD 03/16 4.5 Coumadin 6/6.5mg alternate QOD documented in this encounter Plan of Treatment Upcoming Encounters Date Type Department Care Team (Late st Contact Info) Description 09/25/2024 2:00 PM BILLING AND INSURANCE COORDINATOR Appointment [facility] [address] [place] [address] Zayra Powell, [facility] [address] [place] [address] 10/16/2024 3:30 PM BILLING AND INSURANCE COORDINATOR Office Visit [facility] [address] [place] [address] Brit Gonzáles MD [address] [place] [address] documented as of this encounter Visit Diagnoses Not on filedocumented in this encounter
--- OUTSIDE RECORDS SUMMARY | 2024-09-03 19:17 | XMS_ITS | Encounter Summary ---
Author Organization [facility] Address [facility] [place] [address] [place] [address] Care Team Providers Care Military Analyst Name Role Phone Piyush Pandey MD Unavailable Unavailabl e Megan Infante MD Primary Care Provider [phone] Sharmila Davis APRN, PARENT EDUCATOR-C Unavailable Linda Block MD Unavailable [phone] Encounter Details Date Type Department Care Team (Late st Contact Info) Description 01/27/2016 Abstract [facility] - [place] [facility] [place] [address] [place] [address] Linda Block MD [address] [facility] [address] [place] [address] Social History Tobacco Use Types Packs/Day Years [...] st Contact Info) Description 09/25/2024 2:00 PM ETCHER AIRCRAFT Appointment [facility] [address] [place] [address] Zayra Powell, C IRON WORKER [address] [place] [address] 10/16/2024 3:30 PM ETCHER AIRCRAFT [facility] [address] [place] [address] Brit Gonzáles MD [address] [place] [address] documented as of this encounter Visit Diagnoses Diagnosis Chronic atrial fibrillation ([facility]/HCC [facility]/HCC) Atrial fibrillation documented in this encounter Care Teams Military Analyst Relationship Specialty Start Date End Date Megan Infante MD [address] [place] [address] PCP - General FAMILY PRACTICE 04/06/16 Piyush Pandey MD [place] Knife Setter Grinder Machine CARDIOVASCULAR DISEASE 04/06/16 12/28/23 Sharmila Davis APRN, PARENT EDUCATOR-C [address] [facility] [address] [place] [address] NURSE PRACTITIONER 01/04/17 04/03/24 Linda Block MD [address] [facility] [address] [place] [address] [place] Knife Setter Grinder Machine CLINICAL CARDIAC ELECTROPHYSIOLOGY 02/08/17 04/12/23 documented as of this encounter
--- OUTSIDE RECORDS SUMMARY | 2024-09-03 19:17 | XMS_ITS | Encounter Summary ---
Author Organization [facility] Address [facility] [place] [address] [place] [address] Care Team Providers Care Director Community Center Name Role Phone Piyush Pandey MD Unavailable UnavailMegan Rodriguez MD Primary Care Provider [phone] Sharmila Davis APRN, SUPERVISOR HEADING-C Unavailable Linda Block MD Unavailable [phone] Encounter Details Date Type Department Care Team (Late st Contact Info) Description 03/26/2016 Orders Only ROSALES CONVERSION [address] [place], [place] [id number] , Generic Conversion, Social History Tobacco Use [...] st Contact Info) Description 09/25/2024 2:00 PM CIGAR BANDER HAND Appointment [facility] [address] [place] [address] Zayra Powell, LINEN CONTROLLER [address] [place] [address] 10/16/2024 3:30 PM CIGAR BANDER HAND Office Visit [facility] [address] [place] [phone] Brit Gonzáles MD [address] [place] [address] documented as of this encounter Procedures Procedure Name Priority Date/Time Associated Diagnosis Comments POCT GLUCOSE - VALLECILLO DOCKED DEVICE Routine 03/26/2016 1:18 PM CDT documented in this encounter Results * POCT glucose (03/26/2016 1:18 PM CDT) GLUCOSE POC 104 70 - 109 03/26/2016 1:21 PM CDT [facility] ORDERS INTERFACE WHOLE BLOOD SPECIMEN / Unknown 03/26/2016 1:18 PM CDT 03/26/2016 1:21 PM CDT us Generic Conversion Md LANDRY POCT ORDERABLES - DEVIC E Final Result [facility] ORDERS INTERFACE US documented in this encounter Visit Diagnoses Not on filedocumented in this encounter Care Teams Director Community Center Relationship Specialty Start Date End Date Megan Infante MD [address] [facility] [place] [address] PCP - General FAMILY PRACTICE 04/06/16 Piyush Pandey MD [employer] Vocal Music Teacher CARDIOVASCULAR DISEASE 04/06/16 12/28/23 Sharmila Davis, WOOD GETTER, SUPERVISOR HEADING-C [address] [facility] [address] [place] [address] NURSE PRACTITIONER 01/04/17 04/03/24 Linda Block MD [address] [facility] [address] [place] [address] [employer] Vocal Music Teacher CLINICAL CARDIAC ELECTROPHYSIOLOGY 02/08/17 04/12/23 documented as of this encounter
--- OUTSIDE RECORDS SUMMARY | 2024-09-03 19:17 | XMS_ITS | Encounter Summary ---
Author Organization [facility] Address [address] [place] [address]. [place] [address] [place] [address] Care Team Providers Care Construction Grip Name Role Phone Unavailable Primary Care Provider Unavailabl e Encounter Details Date Type Department Care Team (Late st Contact Info) Description 01/27/2016 Scan [facility] [address] [place] [address] Eun Tovar MD Social History Tobacco Use Types Packs/Day [...] st Contact Info) Description 09/25/2024 2:00 PM HOSPICE CARE TRANSITIONS COORDINATOR Appointment [facility] [address] [place] [address] Zayra Powell, [facility] [address] [place] [address] 10/16/2024 3:30 PM HOSPICE CARE TRANSITIONS COORDINATOR Office Visit [facility] [address] [address] Brit Gonzáles MD [address] [place] [address] documented as of this encounter Visit Diagnoses Not on filedocumented in this encounter
--- OUTSIDE RECORDS SUMMARY | 2024-09-03 19:17 | XMS_ITS | Encounter Summary ---
Author Organization [facility] Address [address] [place] [address]. [place] [address] [place] [address] Care Team Providers Care Learning Specialist Name Role Phone Piyush Pandey MD [facility] MD Primary Care Provider [phone] Encounter Details Date Type Department Care Team (Late st Contact Info) Description 03/26/2016 DIGITAL CONTENT PRODUCER ONLY [facility] [address] [place] [address] Linda Block MD [address] [facility] [address] [place] [address] Social History Tobacco Use Types [...] st Contact Info) Description 09/25/2024 2:00 PM PELLETIZER OPERATOR Appointment [facility] [address] [place] [address] Zayra Powell, RHYTHMIC GYMNASTICS COACH [address] [place] [address] 10/16/2024 3:30 PM PELLETIZER OPERATOR Office Visit [facility] [address] [place] [phone] Brit Gonzáles MD [address] [place] [address] documented as of this encounter Visit Diagnoses Not on filedocumented in this encounter Care Teams Learning Specialist Relationship Specialty Start Date End Date Megan Infante MD [address] [facility] [place] [address] PCP - General FAMILY PRACTICE 04/06/16 Piyush Pandey MD [place] Centerless Grinder CARDIOVASCULAR DISEASE 04/06/16 12/28/23 documented as of this encounter
--- OUTSIDE RECORDS SUMMARY | 2024-09-03 19:17 | XMS_ITS | Encounter Summary ---
Author Organization [facility] Address [facility]6 [facility] [address] [place] [address] Care Team Providers Care Shuttlecock Feather Trimmer Name Role Phone Piyush Pandey MD Unavailable UnavailMegan Rodriguez MD Primary Care Provider [phone] Sharmila Davis APRN, SUPERVISOR PLASTIC SHEETS-C Unavailable Linda Block MD Unavailable [phone] Encounter Details Date Type Department Care Team (Latest Contact Info) Description 03/25/2016 Abstract [facility] Medical Group Social [...] st Contact Info) Description 09/25/2024 2:00 PM CHARGEMASTER ANALYST Appointment [facility] [address] [place] [address] Zayra Powell, INTERIOR DECORATOR PAINTING [address] [place] [address] 10/16/2024 3:30 PM CHARGEMASTER ANALYST Office Visit [facility] [address] [place] [address] Brit Gonzáles MD [address] [place], [place] [phone] documented as of this encounter Visit Diagnoses Not on filedocumented in this encounter Care Teams [place]cock Feather Trimmer Relationship Specialty Start Date End Date Megan Infante MD [address] [facility] [place] [address] PCP - General FAMILY PRACTICE 04/06/16 Piyush Pandey MD [place] [facility] CARDIOVASCULAR DISEASE 04/06/16 12/28/23 Sharmila Davis, CIGAR WRAPPER TENDER AUTOMATIC, SUPERVISOR PLASTIC SHEETS-C [address] [facility] [address] [place] [address] NURSE PRACTITIONER 01/04/17 04/03/24 Linda Block MD [address] [facility] [address] [place] [address] [place] [facility] CLINICAL CARDIAC ELECTROPHYSIOLOGY 02/08/17 04/12/23 documented as of this encounter
--- OUTSIDE RECORDS SUMMARY | 2024-09-03 19:17 | XMS_ITS | Encounter Summary ---
Author Organization [facility] Address [facility] [place] [address] [place] [address] Care Team Providers Care Fur Blender Name Role Phone Piyush Pandey MD Unavailable UnavailMeagn Rodriguez MD Primary Care Provider [phone] Sharmila Davis APRN, PUBLIC WORKS MANAGER-C Unavailable Marlee Block MD Unavailable [phone] Encounter Details Date Type Department Care Team (Latest Contact Info) Description 03/24/2016 Abstract [facility] Social History Tobacco Use [...] Contact Info) Description 09/25/2024 2:00 PM WEB ASSISTANT Appointment [facility] [address] [place] [address] Zayra Powell, SYSTEMS INTEGRATION ENGINEER [address] [place] [address] 10/16/2024 3:30 PM WEB ASSISTANT Office Visit [facility] [address] [place] [address] Brit Gonzáles MD [address] [place], [place] [phone] documented as of this encounter Procedures Procedure Name Priority Date/Time Associated Diagnosis Comments ECG 12-LEAD Routine 03/24/2016 12:10 PM CDT ECG 12-LEAD Routine 03/24/2016 5:21 AM CDT documented in this encounter Results * ECG 12 lead (03/24/2016 12:10 PM CDT) 03/24/2016 12:1 0 PM CDT Narrative [facility] - 03/24/2016 1:47 PM CDT ? [facility] ? [address] [place], [place] ??[address] ? Test Date: ?2016-03-24 Pat Name: ? OBIE BELLHAN ?Department: ?? 1 ? Room: ? 0468A Gender: ? M ?Education Research Analyst: ?? ruma HERRON: ?1955 ? Requested By: MARLEE BLOCK Order Number: [id number] ? Reading : ?? Job Vizcarra ? Measurements Intervals ?[place] ? Rate: ? 66 ? P: ?6 ND: ? 162 ?QRS: ?-27 QRSD: ? 132 ?T: ?124 QT: ? 453 ? QTc: ?478 ? Interpretive Statements SINUS RHYTHM BORDERLINE LEFT AXIS DEVIATION INTRAVENTRICULAR CONDUCTION DELAY Procedure Note Eun Landry, - 04/18/2019 [place] [address] [place] [address] Test Date: 2016-03-24 Pat Name: OBIE SIMS Department: 1 Room: [facility] Gender: M Education Research Analyst: ruma : 1955 Requested By: MARLEE BLOCK Order Number: [id number] Reading MD: Job Vizcarra Measurements Intervals [place] Rate: 66 P: 6 ND: 162 QRS: -27 QRSD: 132 T: 124 QT: 453 QTc: 478 Interpretive Statements SINUS RHYTHM BORDERLINE LEFT AXIS DEVIATION INTRAVENTRICULAR CONDUCTION DELAY us Generic Conversion Md LANDRY ECG ORDERABLES Final R esult [facility] * ECG 12 lead (03/24/2016 5:21 AM CDT) 03/24/2016 5:21 AM CDT Narrative [facility] - 03/24/2016 7:55 AM CDT ? [facility] ? [address] [place], [place] ??[address] ? Test Date: ?2016-03-24 Pat Name: ? OBIE SIMS ?Department: ?? 1 ? Room: ? 0468A Gender: ? M ?Education Research Analyst: ?? ruma : ?1955 ? Requested By: JESSICA ROUSSEAU Order Number: [id number] ? Reading MD: ?? Job Vizcarra ? Measurements Intervals ?[place] ? Rate: ? 54 ? P: ? ND: ? 0 ?QRS: ?-24 QRSD: ? 130 ?T: ?143 QT: ? 466 ? QTc: ?445 ? Interpretive Statements ATRIAL FLUTTER/TACHYCARDIA WITH SLOW VENTRICULAR RESPONSE SEPTAL MYOCARDIAL INFARCTION, PROBABLY OLD MODERATE T-WAVE ABNORMALITY, CONSIDER LATERAL ISCHEMIA Procedure Note , Generic Conversion, - 04/18/2019 [place] [address] [place] [address] Test Date: 2016-03-24 Pat Name: OBIE SIMS Department: 1 Room: [facility] Gender: M Education Research Analyst: ruma : 1955 Requested By: JESSICA ROUSSEAU Order Number: [id number] Reading MD: Job Vizcarra Measurements Intervals [place] Rate: 54 P: ND: 0 QRS: -24 QRSD: 130 T: 143 QT: 466 QTc: 445 Interpretive Statements ATRIAL FLUTTER/TACHYCARDIA WITH SLOW VENTRICULAR RESPONSE SEPTAL MYOCARDIAL INFARCTION, PROBABLY OLD MODERATE T-WAVE ABNORMALITY, CONSIDER LATERAL ISCHEMIA us Generic Conversion Md LANDRY ECG ORDERABLES Final R esult [facility] documented in this encounter Visit Diagnoses Not on filedocumented in this encounter Care Teams Fur Blender Relationship Specialty Start Date End Date Megan Infante MD [address] [facility] [place] [address] PCP - General FAMILY PRACTICE 04/06/16 Piyush Pandey MD [place] Director Occupational CARDIOVASCULAR DISEASE 04/06/16 12/28/23 Sharmila Davis, PULP TESTER, PUBLIC WORKS MANAGER-C [address] [place] [address] [place] [address] NURSE PRACTITIONER 01/04/17 04/03/24 Marlee Block MD [address] [facility] [address] [phone] [place] Director Occupational CLINICAL CARDIAC ELECTROPHYSIOLOGY 02/08/17 04/12/23 documented as of this encounter
--- OUTSIDE RECORDS SUMMARY | 2024-09-03 19:17 | XMS_ITS | Encounter Summary ---
Author Organization [facility] Address [facility] [place] [address] [place] [address] Care Team Providers Care Coke Inspector Name Role Phone Piyush Pandey MD Unavailable UnavailMegan Rodriguez MD Primary Care Provider [phone] Sharmila Davis APRN, DOUGH CUTTER-C Unavailable Linda Block MD Unavailable [phone] Encounter Details Date Type Department Care Team (Late st Contact Info) Description 03/24/2016 Orders Only ROSALES CONVERSION [address] [place], [place] [id number] , Generic Conversion, Social History Tobacco Use [...] st Contact Info) Description 09/25/2024 2:00 PM SECONDARY MARKET MANAGER Appointment [facility] [address] [place] [address] Zayra Powell, SALESPERSON MEN'S AND BOYS' CLOTHING [address] [place] [address] 10/16/2024 3:30 PM SECONDARY MARKET MANAGER Office Visit [facility] [address] [place] [address] Brit Gonzáles MD [address] [place] [address] documented as of this encounter Procedures Procedure Name Priority Date/Time Associated Diagnosis Comments POCT GLUCOSE - VALLECILLO DOCKED DEVICE Routine 03/24/2016 6:36 PM CDT documented in this encounter Results * (ABNORMAL) POCT glucose (03/24/2016 6:36 PM CDT) GLUCOSE POC 123(H) 70 - 109 03/24/2016 7:07 PM CDT [facility] LAB ORDERS INTERFACE WHOLE BLOOD SPECIMEN / Unknown 03/24/2016 6:36 PM CDT 03/24/2016 7:07 PM CDT us Generic Conversion Md LANDRY POCT ORDERABLES - DEVIC E Final Result [facility] ORDERS INTERFACE US documented in this encounter Visit Diagnoses Not on filedocumented in this encounter Care Teams Coke Inspector Relationship Specialty Start Date End Date Megan Infante MD [address] [facility] [place] [phone] PCP - General FAMILY PRACTICE 04/06/16 Piyush Pandey MD [place] Administrative Nursing Supervisor CARDIOVASCULAR DISEASE 04/06/16 12/28/23 Sharmila Davis, ACCOUNTS RECEIVABLE ADMINISTRATOR, DOUGH CUTTER-C [address] [facility] [address] [place] [address] NURSE PRACTITIONER 01/04/17 04/03/24 Linda Block MD [address] [facility] [address] [place] [address] [place] Administrative Nursing Supervisor CLINICAL CARDIAC ELECTROPHYSIOLOGY 02/08/17 04/12/23 documented as of this encounter
--- OUTSIDE RECORDS SUMMARY | 2024-09-03 19:17 | XMS_ITS | Encounter Summary ---
Author Organization [facility] Address Replaced by [facility]6 [facility] [place] [address] [place] [address] Care Team Providers Care Principal System Software Engineer Name Role Phone Piyush Pandey MD Unavailable UnavailMegan Rodriguez MD Primary Care Provider [phone] Sharmila Davis APRN, CALKER-C Unavailable [phone] Linad Block MD Unavailable [phone] Encounter Details Date Type Department Care Team (Late st Contact Info) Description 03/23/2016 Orders Only ROSALES CONVERSION ONE [place], [place] [id number] , Generic Conversion, Social History Tobacco Use [...] st Contact Info) Description 09/25/2024 2:00 PM WOOD FINISHER APPRENTICE Appointment [facility] [address] [place] [address] Zayra Powell, STOVE MOUNTER [address] [place] [address] 10/16/2024 3:30 PM WOOD FINISHER APPRENTICE Office Visit [facility] [address] [place] [phone] Brit Gonzáles MD [address] [place] [address] documented as of this encounter Procedures Procedure Name Priority Date/Time Associated Diagnosis Comments PARTIAL THROMBOPLASTIN TIME,PTT NOW 03/23/2016 3:41 PM CDT documented in this encounter Results * PARTIAL THROMBOPLASTIN TIME,PTT (03/23/2016 3:41 PM CDT) PTT 28.1 22.0 - 35.0 SEC 03/23/2016 4:[address] [facility] PLASMA SPECIMEN / Unknown 03/23/2016 3:41 PM CDT 03/23/2016 3:50 PM CDT us Generic Conversion Md LANDRY LABORATORY Final R esult [facility] [address] [place] [address], [id number] documented in this encounter Visit Diagnoses Not on filedocumented in this encounter Care Teams Principal System Software Engineer Relationship Specialty Start Date End Date Megan Infante MD [address] [facility] [address] [place] [address] PCP - General FAMILY PRACTICE 04/06/16 Piyush Pandey MD [place] Product Development Intern CARDIOVASCULAR DISEASE 04/06/16 12/28/23 Sharmila Davis APRN, CALKER-C [address] [facility] [address] [place] [address] NURSE PRACTITIONER 01/04/17 04/03/24 Linda Block MD [address] [facility] [address] [place] [address] Tell Product Development Intern CLINICAL CARDIAC ELECTROPHYSIOLOGY 02/08/17 04/12/23 documented as of this encounter
--- OUTSIDE RECORDS SUMMARY | 2024-09-03 19:17 | XMS_ITS | Encounter Summary ---
Author Organization [facility] Address [facility]6 [place] [address] [place] [address] Care Team Providers Care Network Support Technician Name Role Phone Piyush Pandey MD Unavailable UnavailMegan Rodriguez MD Primary Care Provider [phone] Sharmila Davis APRN, MERCHANDISE PRESENTATION MANAGER-C Unavailable Linda Block MD Unavailable [phone] Encounter Details Date Type Department Care Team (Late st Contact Info) Description 03/26/2016 Orders Only ROSALES CONVERSION [address] [place], [place] [id number] , Generic Conversion, Social History Tobacco Use [...] st Contact Info) Description 09/25/2024 2:00 PM RESEARCH PROFESSOR OF BIOSTATISTICS Appointment [facility] [address] [place] [address] Zayra Powell, CORPORATE MEETING PLANNER [address] [place] [address] 10/16/2024 3:30 PM RESEARCH PROFESSOR OF BIOSTATISTICS Office Visit [facility] [address] [place] [phone] Brit Gonzáles MD [address] [place] [address] documented as of this encounter Procedures Procedure Name Priority Date/Time Associated Diagnosis Comments POCT GLUCOSE - VALLECILLO DOCKED DEVICE Routine 03/26/2016 8:53 AM CDT documented in this encounter Results * (ABNORMAL) POCT glucose (03/26/2016 8:53 AM CDT) GLUCOSE POC 144(H) 70 - 109 03/26/2016 8:58 AM CDT [facility] ORDERS INTERFACE WHOLE BLOOD SPECIMEN / Unknown 03/26/2016 8:53 AM CDT 03/26/2016 8:58 AM CDT us Generic Conversion Md LANDRY POCT ORDERABLES - DEVIC E Final Result [facility] ORDERS INTERFACE US documented in this encounter Visit Diagnoses Not on filedocumented in this encounter Care Teams Network Support Technician Relationship Specialty Start Date End Date Megan Infante MD [address] [facility] [place] [phone] PCP - General FAMILY PRACTICE 04/06/16 Piyush Pandey MD [place] Manager Automotive CARDIOVASCULAR DISEASE 04/06/16 12/28/23 Sharmila Davis, VICE PRESIDENT OF BUSINESS DEVELOPMENT, MERCHANDISE PRESENTATION MANAGER-C [address] [facility] [address] [place] [address] NURSE PRACTITIONER 01/04/17 04/03/24 Linda Block MD [address] [facility] [address] [place] [phone] [place] Manager Automotive CLINICAL CARDIAC ELECTROPHYSIOLOGY 02/08/17 04/12/23 documented as of this encounter
--- OUTSIDE RECORDS SUMMARY | 2024-09-03 19:17 | XMS_ITS | Encounter Summary ---
Author Organization [facility] Address [address] [place] [address]. [place] [address] [place] [address] Care Team Providers Care Chicken And Fish Cleaner Name Role Phone Piyush Pandey MD [facility] MD Primary Care Provider [phone] Encounter Details Date Type Department Care Team (Late st Contact Info) Description 03/24/2016 GUEST RELATIONS EXECUTIVE ONLY [facility] [address] [place] [address] Linda Block MD 6[address] [facility] [address] [place] [address] Social History Tobacco Use Types [...] st Contact Info) Description 09/25/2024 2:00 PM HISTORIC SITE ADMINISTRATOR Appointment [facility] [address] [place] [address] Zayra Powell, [employer] MAINFRAME SYSTEMS PROGRAMMER [address] [place] [address] 10/16/2024 3:30 PM HISTORIC SITE ADMINISTRATOR Office Visit [facility] [address] [place] [address] Brit Gonzáles MD [address]19 [place] [address] documented as of this encounter Visit Diagnoses Not on filedocumented in this encounter Care Teams Chicken And Fish Cleaner Relationship Specialty Start Date End Date Megan Infante MD [address] [facility] [place] [address] PCP - General FAMILY PRACTICE 04/06/16 Piyush Pandey MD [employer] Thr[employer] Performer CARDIOVASCULAR DISEASE 04/06/16 12/28/23 documented as of this encounter
--- OUTSIDE RECORDS SUMMARY | 2024-09-03 19:17 | XMS_ITS | Encounter Summary ---
Author Organization [facility] Address [facility]6 [facility] [place] [address] [place] [address] Care Team Providers Care Associate Buyer Name Role Phone Piyush Pandey MD Unavailable UnavailMegan Rodriguez MD Primary Care Provider [phone] Sharmila Davis APRN, PSYCHOLOGICAL EXAMINER-C Unavailable Linda Block MD Unavailable [phone] Encounter Details Date Type Department Care Team (Late st Contact Info) Description 10/23/2015 Orders Only ROSALES CONVERSION ONE [place], [place] [id number] , Generic Conversion, Social History Tobacco Use [...] st Contact Info) Description 09/25/2024 2:00 PM CASING SEWER Appointment [facility] [address] [place] [address] Zayra Powell, TOOL COORDINATOR [address] [place] [address] 10/16/2024 3:30 PM CASING SEWER Office Visit [facility] [address] [place] [address] Brit Gonzáles MD 619 [place] [address] documented as of this encounter Procedures Procedure Name Priority Date/Time Associated Diagnosis Comments POCT GLUCOSE - VALLECILLO DOCKED DEVICE Routine 10/23/2015 11:53 PM CASING SEWER documented in this encounter Results * (ABNORMAL) POCT glucose (10/23/2015 11:53 PM CASING SEWER) GLUCOSE POC 147(H) 70 - 109 10/24/2015 12:38 AM CASING SEWER [facility] LAB ORDERS INTERFACE WHOLE BLOOD SPECIMEN / Unknown 10/23/2015 11:53 PM CASING SEWER 10/24/2015 12:38 AM CASING SEWER us Generic Conversion Md LANDRY POCT ORDERABLES - DEVIC E Final Result [facility] [place] [address], documented in this encounter Visit Diagnoses Not on filedocumented in this encounter Care Teams Associate Buyer Relationship Specialty Start Date End Date Megan Infante MD [address] [facility] [place] [address] PCP - General FAMILY PRACTICE 04/06/16 Piyush Pandey MD [facility] Pharm[facility] Technician CARDIOVASCULAR DISEASE 04/06/16 12/28/23 Sharmila Davis, RD MANAGER, PSYCHOLOGICAL EXAMINER-C [address] [facility] [address] [place] [address] NURSE PRACTITIONER 01/04/17 04/03/24 Linda Block MD 619 [facility] [address] [place] [address] [facility] Pharmacy Technician CLINICAL CARDIAC ELECTROPHYSIOLOGY 02/08/17 04/12/23 documented as of this encounter
--- OUTSIDE RECORDS SUMMARY | 2024-09-03 19:17 | XMS_ITS | Encounter Summary ---
Author Organization [facility] Address [facility]6 [facility] [place] [address] [place] [address] Care Team Providers Care Sewer Head Name Role Phone Piyush Pandey MD Unavailable UnavailMegan Rodriguez MD Primary Care Provider [phone] Sharmila Davis APRN, VISITING PROFESSOR-C Unavailable Linda Block MD Unavailable [phone] Encounter Details Date Type Department Care Team (Late st Contact Info) Description 03/23/2016 Orders Only ROSALES CONVERSION ONE [place], [place] [id number] , Generic Conversion, Social History Tobacco Use [...] st Contact Info) Description 09/25/2024 2:00 PM TAX ATTORNEY Appointment [facility] [address] [place] [address] Zayra Powell, ASSOCIATE PROFESSOR OF ECONOMICS [address] [place] [address] 10/16/2024 3:30 PM TAX ATTORNEY Office Visit [facility] [address] [place] [address] Brit Gonzáles MD 619 [place] [address] documented as of this encounter Procedures Procedure Name Priority Date/Time Associated Diagnosis Comments POCT GLUCOSE - VALLECILLO DOCKED DEVICE Routine 03/23/2016 10:29 PM CDT documented in this encounter Results * (ABNORMAL) POCT glucose (03/23/2016 10:29 PM CDT) GLUCOSE POC 118(H) 70 - 109 03/23/2016 10:34 PM CDT [facility] ORDERS INTERFACE Comment:RN Notified WHOLE BLOOD SPECIMEN / Unknown 03/23/2016 10:29 PM CDT 03/23/2016 10:34 PM CDT us Generic Conversion Md LANDRY POCT ORDERABLES - DEVIC E Final Result [facility] LAB ORDERS INTERFACE [place] documented in this encounter Visit Diagnoses Not on filedocumented in this encounter Care Teams Sewer Head Relationship Specialty Start Date End Date Megan Infante MD [address] [place] [address] PCP - General FAMILY PRACTICE 04/06/16 Piyush Pandey MD [employer] CARDIOVASCULAR DISEASE 04/06/16 12/28/23 Sharmila Davis APRN, VISITING PROFESSOR-C [address] [facility] [address] [place] [address] NURSE PRACTITIONER 01/04/17 04/03/24 Linda Block MD 6[address] [facility] [address] [place] [address] [employer] CLINICAL CARDIAC ELECTROPHYSIOLOGY 02/08/17 04/12/23 documented as of this encounter
--- OUTSIDE RECORDS SUMMARY | 2024-09-03 19:17 | XMS_ITS | Encounter Summary ---
Author Organization [facility] Address [facility] [place] [address] [place] [address] Care Team Providers Care Professor Of Social Work Name Role Phone Piyush Pandey MD Unavailable Unavailabl Megan Leos MD Primary Care Provider [phone] Sharmila Davis APRN, MUSIC PROMOTER-C Unavailable Linda Block MD Unavailable [phone] Encounter Details Date Type Department Care Team (Late st Contact Info) Description 10/21/[address] [facility] [address] [place] [address] Linda Block MD [address] [facility] [address] [place] [address] Social History Tobacco Use Types Packs/Day Years [...] Contact Info) Description 09/25/2024 2:00 PM COMPUTER SYSTEMS SUPPORT SPECIALIST Appointment [facility] [address] [place] [address] Zayra Powell, FEEDER DRIVER [address] [place] [address] 10/16/2024 3:30 PM COMPUTER SYSTEMS SUPPORT SPECIALIST [facility] 12[address] [place] [address] Brit Gonzáles MD 619 [place] [address] documented as of this encounter Visit Diagnoses Diagnosis Atrial fibrillation (CMS/HCC HHS/HCC) Atrial fibrillation documented in this encounter Care Teams Professor Of Social Work Relationship Specialty Start Date End Date Megan Infante MD [address] [place] [address] PCP - General FAMILY PRACTICE 04/06/16 Piyush Pandey MD [employer] Senior [employer] Software Engineer CARDIOVASCULAR DISEASE 04/06/16 12/28/23 Sharmila Davis, PLACE CHANGE ROOF BOLTER, MUSIC PROMOTER-C 619 [facility] [address] [place] [address] NURSE PRACTITIONER 01/04/17 04/03/24 Linda Block MD 6[address] [facility] [address] [place] [address] [employer] Software Engineer CLINICAL CARDIAC ELECTROPHYSIOLOGY 02/08/17 04/12/23 documented as of this encounter
--- OUTSIDE RECORDS SUMMARY | 2024-09-03 19:17 | XMS_ITS | Encounter Summary ---
Author Organization [facility] Address [facility]6 [facility] [place] [address] [place] [address] Care Team Providers Care Spa Host Name Role Phone Piyush Pandey MD Unavailable UnavailMegan Rodriguez MD Primary Care Provider [phone] Sharmila Davis APRN, COLLAR CLOSER LOCKSTITCH-C Unavailable Linda Block MD Unavailable [phone] Encounter Details Date Type Department Care Team (Late st Contact Info) Description 10/24/2015 Orders Only ROSALES CONVERSION ONE [place], [place] [id number] , Generic Conversion, Social History Tobacco Use [...] st Contact Info) Description 09/25/2024 2:00 PM CLIN NURSE Appointment [facility] [address] [place] [address] Zayra Powell, SHORE WORKING SUPERVISOR [address] [place] [address] 10/16/2024 3:30 PM CLIN NURSE Office Visit [facility] [address] [place] [address] Brit Gonzáles MD 619 [place] [address] documented as of this encounter Procedures Procedure Name Priority Date/Time Associated Diagnosis Comments POCT GLUCOSE - VALLECILLO DOCKED DEVICE Routine 10/24/2015 6:26 AM CLIN NURSE documented in this encounter Results * (ABNORMAL) POCT glucose (10/24/2015 6:26 AM CLIN NURSE) GLUCOSE POC 133(H) 70 - 109 10/24/2015 9:41 AM CLIN NURSE [facility] LAB ORDERS INTERFACE WHOLE BLOOD SPECIMEN / Unknown 10/24/2015 6:26 AM CLIN NURSE 10/24/2015 9:41 AM CLIN NURSE us Generic Conversion Md LANDRY POCT ORDERABLES - DEVIC E Final Result [facility] [place] [address], documented in this encounter Visit Diagnoses Not on filedocumented in this encounter Care Teams Spa Host Relationship Specialty Start Date End Date Megan Infante MD [address] [facility] [place] [address] PCP - General FAMILY PRACTICE 04/06/16 Piyush Pandey MD [employer] Project Manager CARDIOVASCULAR DISEASE 04/06/16 12/28/23 Sharmila Davis, CARGO ROUTER, COLLAR CLOSER LOCKSTITCH-C [address] [facility] [address] [place] [address] NURSE PRACTITIONER 01/04/17 04/03/24 Linda Block MD [address] [facility] [address] [place] [address] [employer] Project Manager CLINICAL CARDIAC ELECTROPHYSIOLOGY 02/08/17 04/12/23 documented as of this encounter
--- OUTSIDE RECORDS SUMMARY | 2024-09-03 19:17 | XMS_ITS | Encounter Summary ---
Author Organization [facility] Address [facility]6 [facility] [place] [address] [place] [address] Care Team Providers Care Practical Nurse Clinical Coordinator Name Role Phone Piyush Pandey MD Unavailable UnavailMegan Rodriguez MD Primary Care Provider [phone] Sharmila Daivs APRN, PAINTER CHASSIS-C Unavailable Linda Block MD Unavailable [phone] Encounter Details Date Type Department Care Team (Late st Contact Info) Description 10/23/2015 Orders Only ROSALES CONVERSION ONE [place], [place] [id number] , Generic Conversion, Social History Tobacco Use [...] st Contact Info) Description 09/25/2024 2:00 PM ROLLS BAKER Appointment [facility] [address] [place] [address] Zayra Powell, FOOD PREPARER [address] [place] [address] 10/16/2024 3:30 PM ROLLS BAKER Office Visit [facility] [address] [place] [address] Brit Gonzáles MD 619 [place] [address] documented as of this encounter Procedures Procedure Name Priority Date/Time Associated Diagnosis Comments PROTHROMBIN TIME, VENOUS NOW 10/23/2015 10:25 AM ROLLS BAKER documented in this encounter Results * PROTIME/INR, VENOUS (10/23/2015 10:25 AM ROLLS BAKER) PROTIME 14.1 11.6 - 14.3 SEC 10/23/2015 10:42 AM ROLLS BAKER [facility] LAB ORDERS INTERFACE INR 1.1 0.9 - 1.1 10/23/2015 10:42 AM ROLLS BAKER [facility] LAB ORDERS INTERFACE 10/23/2015 10:2 5 AM ROLLS BAKER 10/23/2015 10:30 AM ROLLS BAKER us Generic Conversion Md [facility] LABORATORY Final R esult Performing Organization Address City/State/[facility] Co de Phone Number [facility] LAB ORDERS INTERFACE [address] documented in this encounter Visit Diagnoses Not on filedocumented in this encounter Care Teams Practical Nurse Clinical Coordinator Relationship Specialty Start Date End Date Megan Infante MD [address] [facility] [place] [address] PCP - General FAMILY PRACTICE 04/06/16 Piyush Pandey MD [employer] Senior Customer Service Representative CARDIOVASCULAR DISEASE 04/06/16 12/28/23 Sharmila Davis APRN, PAINTER CHASSIS-C [address] [facility] [address] [place] [address] NURSE PRACTITIONER 01/04/17 04/03/24 Linda Block MD [address] [place] [address] [employer] Senior Customer Service Representative CLINICAL CARDIAC ELECTROPHYSIOLOGY 02/08/17 04/12/23 documented as of this encounter
--- OUTSIDE RECORDS SUMMARY | 2024-09-03 19:17 | XMS_ITS | Encounter Summary ---
Author Organization [facility] Address [facility]6 [place] [address] [place] [address] Care Team Providers Care Ror Engineer Name Role Phone Piyush Pandey MD Unavailable UnavailMegan Rodriguez MD Primary Care Provider [phone] Sharmila aDvis APRN, TOLL LINE INSPECTOR-C Unavailable [phone] Linda Block MD Unavailable [phone] Encounter Details Date Type Department Care Team (Late st Contact Info) Description 03/24/2016 Orders Only ROSALES CONVERSION [place], [place] [id number] , Generic Conversion, Social History Tobacco Use [...] st Contact Info) Description 09/25/2024 2:00 PM IMCU SPECIALIST Appointment [facility] [address] [place] [address] Zayra Powell, DRAGLINE OILER [address] [place] [address] 10/16/2024 3:30 PM IMCU SPECIALIST Office Visit [facility] [address] [place] [address] Brit Gonzáles MD 619 [place] [address] documented as of this encounter Procedures Procedure Name Priority Date/Time Associated Diagnosis Comments TROPONIN, QUANT TIMED 03/24/2016 7:14 AM CDT documented in this encounter Results * (ABNORMAL) TROPONIN, QUANT (03/24/2016 7:14 AM CDT) TROPONIN I 0.036(H) 0.000 - 0.028 ng/mL. 03/24/2016 8:01 AM CDT [facility] SERUM OR PLASMA SPECIMEN / Unknown 03/24/2016 7:14 AM CDT 03/24/2016 7:15 AM CDT us Generic Conversion Md [facility] LABORAT[facility] Final R esult [facility] [address] [place] [address], [id number] documented in this encounter Visit Diagnoses Not on filedocumented in this encounter Care Teams Ror Engineer Relationship Specialty Start Date End Date Megan Infante MD [address] [place] [address] PCP - General FAMILY PRACTICE 04/06/16 Piyush Pandey MD [employer] Specialist CARDIOVASCULAR DISEASE 04/06/16 12/28/23 Sharmila Davis APRN, TOLL LINE INSPECTOR-C [address] [place] [address] NURSE PRACTITIONER 01/04/17 04/03/24 Linda Block MD 6[address] [facility] [address] [place] [address] [employer] Specialist CLINICAL CARDIAC ELECTROPHYSIOLOGY 02/08/17 04/12/23 documented as of this encounter
--- OUTSIDE RECORDS SUMMARY | 2024-09-03 19:17 | XMS_ITS | Encounter Summary ---
Author Organization [facility] Address [facility] [place] [address] [place] [address] Care Team Providers Care Outside Sales Executive Name Role Phone Piyush Pandey MD Unavailable UnavailMegan Rodriguez MD Primary Care Provider [phone] Sharmila Davis APRN, PARTS COUNTER SPECIALIST-C Unavailable Linda Block MD Unavailable [phone] Encounter Details Date Type Department Care Team (Late st Contact Info) Description 10/24/2015 Orders Only ROSALES CONVERSION [place], [place] [id number] , Generic Conversion, Social History Tobacco Use [...] st Contact Info) Description 09/25/2024 2:00 PM STRETCHER LEVELER OPERATOR Appointment [facility] [address] [place] [address] Zayra Powell, ASSISTANT OPERATIONS MANAGER [address] [place] [address] 10/16/2024 3:30 PM STRETCHER LEVELER OPERATOR Office Visit [facility] [address] [place] [address] Brit Gonzáles MD 619 [place] [address] documented as of this encounter Procedures Procedure Name Priority Date/Time Associated Diagnosis Comments MAGNESIUM TIMED 10/24/2015 4:25 AM STRETCHER LEVELER OPERATOR documented in this encounter Results * MAGNESIUM (10/24/2015 4:25 AM STRETCHER LEVELER OPERATOR) MAGNESIUM 2.0 1.6 - 2.6 MG/DL 10/24/2015 5:27 AM STRETCHER LEVELER OPERATOR [facility] INTERFACE SERUM OR PLASMA SPECIMEN / Unknown 10/24/2015 4:25 AM STRETCHER LEVELER OPERATOR 10/24/2015 4:43 AM STRETCHER LEVELER OPERATOR us Generic Conversion Md [facility] Final R esult [facility] [place] [address], documented in this encounter Visit Diagnoses Not on filedocumented in this encounter Care Teams Outside Sales Executive Relationship Specialty Start Date End Date Megan Infante MD [address] [facility] [place] [address] PCP - General FAMILY PRACTICE 04/06/16 Piyush Pandey MD [place] Director Of Product Design CARDIOVASCULAR DISEASE 04/06/16 12/28/23 Sharmila Davis, EDUCATIONAL INSTITUTION CURATOR, PARTS COUNTER SPECIALIST-C [address] [facility] [address] [place] [address] NURSE PRACTITIONER 01/04/17 04/03/24 Linda Block MD 619 [facility] [address] [place] [address] [place] Director Of Product Design CLINICAL CARDIAC ELECTROPHYSIOLOGY 02/08/17 04/12/23 documented as of this encounter
--- OUTSIDE RECORDS SUMMARY | 2024-09-03 19:17 | XMS_ITS | Encounter Summary ---
Author Organization [facility] Address [facility]6 [facility] [place] [address] [place] [address] Care Team Providers Care Automatic Log Cut Off Sawyer Name Role Phone Piyush Pandey MD Unavailable Unavailabl e Megan Infante MD Primary Care Provider [phone] Sharmila Davis APRN, BURN TABLE OPERATOR-C Unavailable Linda Block MD Unavailable [phone] Encounter Details Date Type Department Care Team (Late st Contact Info) Description 10/23/2015 Abstract [facility] Supervisor Twisting Department [address] [place] [address] Linda Block MD [address] [facility] [address] [place] [address] Social History Tobacco Use Types Packs/Day Years [...] st Contact Info) Description 09/25/2024 2:00 PM CARETAKER RESORT Appointment [facility] [address] [place] [address] Zayra Powell, APPIAN BPM DEVELOPER [address] [place] [address] 10/16/2024 3:30 PM CARETAKER RESORT [facility] [address] [facility] [place] [place] [address] Brit Gonzáles MD 619 [place] [address] documented as of this encounter Visit Diagnoses Diagnosis Chronic atrial fibrillation ([facility]/HCC HHS/HCC) Atrial fibrillation documented in this encounter Care Teams Automatic Log Cut Off Sawyer Relationship Specialty Start Date End Date Megan Infante MD [address] [place] [address] PCP - General FAMILY PRACTICE 04/06/16 Piyush Pandey MD [place] [employer] Law Clerk CARDIOVASCULAR DISEASE 04/06/16 12/28/23 Sharmila Davis APRN, BURN TABLE OPERATOR-C [address] [facility] [address] [place] [address] NURSE PRACTITIONER 01/04/17 04/03/24 Linda Block MD [address] [facility] [address] [place] [address] [employer] Law Clerk CLINICAL CARDIAC ELECTROPHYSIOLOGY 02/08/17 04/12/23 documented as of this encounter
--- OUTSIDE RECORDS SUMMARY | 2024-09-03 19:17 | XMS_ITS | Encounter Summary ---
Author Organization [facility] Address [facility]6 [place] [address] [place] [address] Care Team Providers Care Fine Grade Bulldozer Operator Name Role Phone Piyush Pandey MD Unavailable UnavailMegan Rodriguez MD Primary Care Provider [phone] Sharmila Davis APRN, EXPEDITION SUPERVISOR-C Unavailable Linda Block MD Unavailable [phone] Encounter Details Date Type Department Care Team (Late st Contact Info) Description 03/24/2016 Orders Only ROSALES CONVERSION ONE [place], [place] [id number] , Generic Conversion, Social History Tobacco Use [...] Contact Info) Description 09/25/2024 2:00 PM TAKE OUT WAITER Appointment [facility] [address] [place] [address] Zayra Powell, COLOR MATCHER [address] [place] [address] 10/16/2024 3:30 PM TAKE OUT WAITER Office Visit [facility] [address] [place] [address] Brit Gonzáles MD 619 [place] [address] documented as of this encounter Procedures Procedure Name Priority Date/Time Associated Diagnosis Comments LIPID PANEL EXTENDED TIMED 03/24/2016 7:14 AM CDT documented in this encounter Results * (ABNORMAL) LIPID PANEL EXTENDED (03/24/2016 7:14 AM CDT) HDL 66 >39 MG/DL 03/24/2016 7:[address] [facility] Comment:DESIRABLE: >60 LIPOPROTEIN (A) 87(H) 0 - 30 MG/DL 03/24/2016 7:[address] [facility] DIRECT LDL 164(H) 0 - 129 MG/DL 03/24/2016 7:[address] [facility] Comment:160-189 HIGH CHOLESTEROL 270(H) 0 - 200 MG/DL 03/24/2016 7:[address] [facility] Comment:HIGH: > OR = 240 TRIGLYCERIDES 219(H) 0 - 149 MG/DL 03/24/2016 7:[address] [facility] Comment:200-499 HIGH VLDL CALCULATION 40 MG/DL 03/24/20 16 7:[address] [facility] CHOL/HDL RATIO 4.1 03/24/2016 7:[address] [facility] LDL/HDL 2.5 03/24/2016 7:[address] [facility] APOLIPOPROTEIN B 132 54 - 163 MG/DL 03/24/2016 7:[address] [facility] NON HDL CHOLESTEROL 204 MG/DL 03/24/2016 7:[address] [facility] HOMOCYSTEINE (U) 14 MCMOL/L 03/24/20 16 6:[address] [facility] HOMOCYSTINE NORMALS NORMAL LEVEL IS LESS THAN OR EQUAL TO 9 03/24/2016 12:[address] [facility] Comment: MILD IS 10 TO 15 UMOL/L MODERATE IS 16 TO 30 UMOL/L MODERATE TO SEVERE IS 31 TO 100 UMOL/L SEVERE IS GREATER THAN 100 UMOL/L PLASMA SPECIMEN / Unknown 03/24/2016 7:14 AM CDT 03/24/2016 7:15 AM CDT us Generic Conversion Md [facility] Final R esult [facility] [address] [place] [address], [id number] documented in this encounter Visit Diagnoses Not on filedocumented in this encounter Care Teams Fine Grade Bulldozer Operator Relationship Specialty Start Date End Date Megan Infatne MD [address] [facility] [place] [address] PCP - General FAMILY PRACTICE 04/06/16 Piyush Pandey MD [place] Demographic Analyst CARDIOVASCULAR DISEASE 04/06/16 12/28/23 Sharmila Davis, TRAIN RESERVATION CLERK, EXPEDITION SUPERVISOR-C [address] [place] [address] NURSE PRACTITIONER 01/04/17 04/03/24 Linda Block MD [address] [facility] [address] [place] [address] [place] Demographic Analyst CLINICAL CARDIAC ELECTROPHYSIOLOGY 02/08/17 04/12/23 documented as of this encounter
--- OUTSIDE RECORDS SUMMARY | 2024-09-03 19:17 | XMS_ITS | Encounter Summary ---
Author Organization [facility] Address [address] [place] [address]. [place] [address] [place] [address] Care Team Providers Care Log Hauler Name Role Phone Unavailable Primary Care Provider Unavailabl e Encounter Details Date Type Department Care Team (Late st Contact Info) Description 10/23/2015 Abstract [facility] [address] [place] [address] Eun Landry MD Social History Tobacco [...] Contact Info) Description 09/25/2024 2:00 PM MANAGER TRANSPLANT Appointment [facility] [address] [place] [address] Zayra Powell, CORPORATE LEGAL MANAGER [address] [place] [address] 10/16/2024 3:30 PM MANAGER TRANSPLANT Office Visit [facility] [address] [place] [phone] Brit Gonzáles MD [address] [place] [address] documented as of this encounter Procedures Procedure Name Priority Date/Time Associated Diagnosis Comments PROTIME / PROTHROMBIN TIME Routine 10/23/2015 10:25 AM MANAGER TRANSPLANT documented in this encounter Results * PROTIME / PROTHROMBIN TIME (10/23/2015 10:25 AM MANAGER TRANSPLANT) PROTIME 14.1 11.6 - 14.3 SEC MEDINFORMATIX TO EPIC CONVERSION INR 1.1 0.9 - 1.1 MEDINFORMA TIX TO EPIC CONVERSION 10/23/2015 10:2 5 AM MANAGER TRANSPLANT 10/23/2015 10:25 AM MANAGER TRANSPLANT Narrative MEDINFORMATIX TO EPIC CONVERSION - 10/23/2015 10:42 AM MANAGER TRANSPLANT Reviewed by DEMETRIS Hansen ??2 2015 11:34:08:000AM us Generic Conversion Md [facility] Final R esult MEDINFORMATIX TO EPIC CONVERSION documented in this encounter Visit Diagnoses Not on filedocumented in this encounter
--- OUTSIDE RECORDS SUMMARY | 2024-09-03 19:17 | XMS_ITS | Encounter Summary ---
Author Organization [facility] Address [facility]6 [facility] [place] [address] [place] [address] Care Team Providers Care Chinese Instructor Name Role Phone Piyush Pandey MD Unavailable UnavailMegan Rodriguez MD Primary Care Provider [phone] Sharmila Davis APRN, HOLLOW WARE MAKER-C Unavailable [phone] Linda Block MD Unavailable [phone] Encounter Details Date Type Department Care Team (Late st Contact Info) Description 03/23/2016 Orders Only ROSALES CONVERSION [place], [place] [id number] , Generic Conversion, Social History Tobacco Use [...] st Contact Info) Description 09/25/2024 2:00 PM TECHNICAL SOLUTIONS ENGINEER Appointment [facility] [address] [place] [address] Zayra Powell, COLD STORAGE WORKER [address] [place] [address] 10/16/2024 3:30 PM TECHNICAL SOLUTIONS ENGINEER Office Visit [facility] [address] [place] [phone] Brit Gonzáles MD [address] [place] [address] documented as of this encounter Procedures Procedure Name Priority Date/Time Associated Diagnosis Comments POCT GLUCOSE - VALLECILLO DOCKED DEVICE Routine 03/23/2016 5:10 PM CDT documented in this encounter Results * (ABNORMAL) POCT glucose (03/23/2016 5:10 PM CDT) GLUCOSE POC 169(H) 70 - 109 03/23/2016 5:12 PM CDT [facility] LAB ORDERS INTERFACE WHOLE BLOOD SPECIMEN / Unknown 03/23/2016 5:10 PM CDT 03/23/2016 5:12 PM CDT us Generic Conversion Md [facility] POCT ORDERABLES - DEVIC E Final Result [facility] LAB ORDERS INTERFACE US documented in this encounter Visit Diagnoses Not on filedocumented in this encounter Care Teams Chinese Instructor Relationship Specialty Start Date End Date Megan Infante MD [address] [facility] [place] [phone] PCP - General FAMILY PRACTICE 04/06/16 Piyush Pandey MD [place] Fruit I Farmworker CARDIOVASCULAR DISEASE 04/06/16 12/28/23 Sharmila Davis, HOT PUNCH PRESS OPERATOR, HOLLOW WARE MAKER-C [address] [facility] [address] [place] [address] NURSE PRACTITIONER 01/04/17 04/03/24 Linda Block MD [address] [facility] [address] [place] [address] [place] Fruit I Farmworker CLINICAL CARDIAC ELECTROPHYSIOLOGY 02/08/17 04/12/23 documented as of this encounter
--- OUTSIDE RECORDS SUMMARY | 2024-09-03 19:17 | XMS_ITS | Encounter Summary ---
Author Organization [facility] Address [facility] [place] [address] [place] [address] Care Team Providers Care Groundskeeper Porter Name Role Phone Piyush Pandey MD Unavailable UnavailMegan Rodriguez MD Primary Care Provider [phone] Sharmila Davis APRN, INSECTICIDE SUPERVISOR-C Unavailable [phone] Linda Block MD Unavailable [phone] Encounter Details Date Type Department Care Team (Late st Contact Info) Description 03/25/2016 Orders Only ROSALES CONVERSION [address] [place], [place] [id number] , Generic Conversion, Social History Tobacco Use [...] st Contact Info) Description 09/25/2024 2:00 PM CCO & PRESIDENT Appointment [facility] [address] [place] [address] Zayra Powell, FORGE UTILITY WORKER [address] [place] [address] 10/16/2024 3:30 PM CCO & PRESIDENT Office Visit [facility] [address] [place] [phone] Brit Gonzáles MD [address] [place] [address] documented as of this encounter Procedures Procedure Name Priority Date/Time Associated Diagnosis Comments POCT GLUCOSE - VALLECILLO DOCKED DEVICE Routine 03/25/2016 7:45 AM CDT documented in this encounter Results * (ABNORMAL) POCT glucose (03/25/2016 7:45 AM CDT) GLUCOSE POC 130(H) 70 - 109 03/25/2016 12:35 PM CDT [facility] LAB ORDERS INTERFACE WHOLE BLOOD SPECIMEN / Unknown 03/25/2016 7:45 AM CDT 03/25/2016 12:35 PM CDT us Generic Conversion Md [facility] POCT ORDERABLES - DEVIC E Final Result [facility] LAB ORDERS INTERFACE US documented in this encounter Visit Diagnoses Not on filedocumented in this encounter Care Teams Groundskeeper Porter Relationship Specialty Start Date End Date Megan Infante MD [address] [facility] [place] [phone] PCP - General FAMILY PRACTICE 04/06/16 Piyush Pandey MD [place] Cnc Milling Machinist CARDIOVASCULAR DISEASE 04/06/16 12/28/23 Sharmila Davis, PIPE FITTER AMMONIA, INSECTICIDE SUPERVISOR-C [address] [facility] [address] [place] [address] NURSE PRACTITIONER 01/04/17 04/03/24 Linda Block MD [address] [facility] [address] [place] [phone] [place] Cnc Milling Machinist CLINICAL CARDIAC ELECTROPHYSIOLOGY 02/08/17 04/12/23 documented as of this encounter
--- OUTSIDE RECORDS SUMMARY | 2024-09-03 19:17 | XMS_ITS | Encounter Summary ---
Author Organization [facility] Address [facility]6 [place] [address] [place] [address] Care Team Providers Care Crystal Growing Technician Name Role Phone Piyush Pandey MD Unavailable UnavailMegan Rodriguez MD Primary Care Provider [phone] Sharmila Davis APRN, CAR REPOSSESSOR-C Unavailable Linda Block MD Unavailable [phone] Encounter Details Date Type Department Care Team (Late st Contact Info) Description 10/23/2015 Orders Only ROSALES CONVERSION [address] [place], [place] [id number] , Generic Conversion, Social History Tobacco Use [...] st Contact Info) Description 09/25/2024 2:00 PM INSTRUCTOR KNITTING Appointment [facility] [address] [place] [address] Zayra Powell, ARCHITECTURAL ADMINISTRATIVE ASSISTANT [address] [place] [address] 10/16/2024 3:30 PM INSTRUCTOR KNITTING Office Visit [facility] [address] [place] [phone] Brit Gonzáles MD [address] [place] [address] documented as of this encounter Procedures Procedure Name Priority Date/Time Associated Diagnosis Comments ACT (HMT OR LHMT) Routine 10/23/2015 2:3 5 PM INSTRUCTOR KNITTING documented in this encounter Results * (ABNORMAL) ACT (HMT OR LHMT) (10/23/2015 2:35 PM INSTRUCTOR KNITTING) ACTIVATED CLOTTING TIME (ACT HMT OR LMT) 300(H) 74 - 137 SEC 10/23/2015 2:40 PM INSTRUCTOR KNITTING [facility] LAB ORDERS INTERFACE WHOLE BLOOD SPECIMEN / Unknown 10/23/2015 2:35 PM INSTRUCTOR KNITTING 10/23/2015 2:40 PM INSTRUCTOR KNITTING us Generic Conversion Md [facility] BLOOD ORDERABLES Fi nal Result Performing Organization Address City/State/[facility] Co de Phone Number [facility] [place] [address], documented in this encounter Visit Diagnoses Not on filedocumented in this encounter Care Teams Crystal Growing Technician Relationship Specialty Start Date End Date Megan Infante MD [address] [facility] [place] [address] PCP - General FAMILY PRACTICE 04/06/16 Piyush Pandey MD [place] Beader CARDIOVASCULAR DISEASE 04/06/16 12/28/23 Sharmila Davis APRN, CAR REPOSSESSOR-C [address] [facility] [address] [place] [phone] NURSE PRACTITIONER 01/04/17 04/03/24 Linda Block MD [address] [facility] [address] [place] [address] [place] Beader CLINICAL CARDIAC ELECTROPHYSIOLOGY 02/08/17 04/12/23 documented as of this encounter
--- OUTSIDE RECORDS SUMMARY | 2024-09-03 19:17 | XMS_ITS | Encounter Summary ---
Author Organization [facility] Address [address] [place] [address]. [place] [address] [place] [address] Care Team Providers Care Dry Cans Back Tender Name Role Phone Unavailable Primary Care Provider Unavailabl e Encounter Details Date Type Department Care Team (Late st Contact Info) Description 10/24/2015 Abstract [facility] [address] [place] [address] Eun Tovar MD Social History [...] st Contact Info) Description 09/25/2024 2:00 PM PACKAGER HEAD Appointment [facility] [address] [place] [address] Zayra Powell, FRIED CAKE MAKER [address] [place] [address] 10/16/2024 3:30 PM PACKAGER HEAD Office Visit [facility] [address] [phone] Brit Gonzáles MD [address] [place] [address] documented as of this encounter Visit Diagnoses Not on filedocumented in this encounter
--- OUTSIDE RECORDS SUMMARY | 2024-09-03 19:17 | XMS_ITS | Encounter Summary ---
Author Organization [facility] Address [facility]6 [facility] [place] [address] [place] [address] Care Team Providers Care Medical Office Scheduler Name Role Phone Piyush Pandey MD Unavailable UnavailMegan Rodriguez MD Primary Care Provider [phone] Sharmila Davis APRN, WINK CUTTER OPERATOR-C Unavailable Linda Block MD Unavailable [phone] Encounter Details Date Type Department Care Team (Late st Contact Info) Description 10/23/2015 Orders Only ROSALES CONVERSION [address] [place], [place] [id number] , Generic Conversion, Social History Tobacco Use [...] st Contact Info) Description 09/25/2024 2:00 PM KITCHEN ASSISTANT Appointment [facility] [address] [place] [address] Zayra Powell, REEL STRIPPER [address] [place] [address] 10/16/2024 3:30 PM KITCHEN ASSISTANT Office Visit [facility] [address] [place] [phone] Brit Gonzáles MD 619 [place] [address] documented as of this encounter Procedures Procedure Name Priority Date/Time Associated Diagnosis Comments ACT (HMT OR LHMT) Routine 10/23/2015 1:4 0 PM KITCHEN ASSISTANT documented in this encounter Results * (ABNORMAL) ACT (HMT OR LHMT) (10/23/2015 1:40 PM KITCHEN ASSISTANT) ACTIVATED CLOTTING TIME (ACT HMT OR LMT) 282(H) 74 - 137 SEC 10/23/2015 1:45 PM KITCHEN ASSISTANT [facility] LAB ORDERS INTERFACE WHOLE BLOOD SPECIMEN / Unknown 10/23/2015 1:40 PM KITCHEN ASSISTANT 10/23/2015 1:45 PM KITCHEN ASSISTANT us Generic Conversion Md [facility] LAB BLOOD ORDERABLES Fi nal Result Performing Organization Address City/State/[facility] Co de Phone Number [facility] [place] [address], documented in this encounter Visit Diagnoses Not on filedocumented in this encounter Care Teams Medical Office Scheduler Relationship Specialty Start Date End Date Megan Infante MD [address] [facility] [place] [address] PCP - General FAMILY PRACTICE 04/06/16 Piyush Pandey MD [place] Draw Frame Tender CARDIOVASCULAR DISEASE 04/06/16 12/28/23 Sharmila Davis APRN, WINK CUTTER OPERATOR-C [address] [facility] [address] [place] [address] NURSE PRACTITIONER 01/04/17 04/03/24 Linda Block MD [address] [facility] [address] [place] [phone] [place] Draw Frame Tender CLINICAL CARDIAC ELECTROPHYSIOLOGY 02/08/17 04/12/23 documented as of this encounter
--- OUTSIDE RECORDS SUMMARY | 2024-09-03 19:17 | XMS_ITS | Encounter Summary ---
Author Organization [facility] Address [facility] [place] [address] [place] [address] Care Team Providers Care Supplier Development Manager Name Role Phone Piyush Pandey MD Unavailable UnavailMegan Rodriguez MD Primary Care Provider [phone] Sharmila Davis APRN, VETERINARY DENTIST-C Unavailable Linda Block MD Unavailable [phone] Encounter Details Date Type Department Care Team (Late st Contact Info) Description 03/26/2016 Orders Only ROSALES CONVERSION [address] [place], [place] [id number] , Generic Conversion, Social History Tobacco Use [...] st Contact Info) Description 09/25/2024 2:00 PM EYEGLASS LENS GRINDER Appointment [facility] [address] [place] [address] Zayra Powell, DRAFTER APPRENTICE [address] [place] [address] 10/16/2024 3:30 PM EYEGLASS LENS GRINDER Office Visit [facility] [address] [place] [phone] Brit Gonzáles MD 619 [place] [address] documented as of this encounter Procedures Procedure Name Priority Date/Time Associated Diagnosis Comments POCT GLUCOSE - VALLECILLO DOCKED DEVICE Routine 03/26/2016 10:00 PM CDT documented in this encounter Results * (ABNORMAL) POCT glucose (03/26/2016 10:00 PM CDT) GLUCOSE POC 111(H) 70 - 109 03/26/2016 10:13 PM CDT [facility] LAB ORDERS INTERFACE WHOLE BLOOD SPECIMEN / Unknown 03/26/2016 10:00 PM CDT 03/26/2016 10:13 PM CDT us Generic Conversion Md [facility] POCT ORDERABLES - DEVIC E Final Result [facility] LAB ORDERS INTERFACE US documented in this encounter Visit Diagnoses Not on filedocumented in this encounter Care Teams Supplier Development Manager Relationship Specialty Start Date End Date Megan Infante MD [address] [facility] [place] [phone] PCP - General FAMILY PRACTICE 04/06/16 Piyush Pandey MD [place] Special Warfare Operator CARDIOVASCULAR DISEASE 04/06/16 12/28/23 Sharmila Davis, STRAP CUTTING MACHINE OPERATOR, VETERINARY DENTIST-C 619 [facility] [address] [place] [phone] NURSE PRACTITIONER 01/04/17 04/03/24 Linda Block MD 619 [facility] [address] [place] [phone] [place] Special Warfare Operator CLINICAL CARDIAC ELECTROPHYSIOLOGY 02/08/17 04/12/23 documented as of this encounter
--- OUTSIDE RECORDS SUMMARY | 2024-09-03 19:17 | XMS_ITS | Encounter Summary ---
Author Organization [facility] Address [facility]6 [facility] [place] [address] [place] [address] Care Team Providers Care Automotive Heavy Mechanic Name Role Phone Piyush Pandey MD Unavailable UnavailMegan Rodriguez MD Primary Care Provider [phone] Sharmila Davis APRN, DEVELOPMENT REP-C Unavailable Linda Block MD Unavailable [phone] Encounter Details Date Type Department Care Team (Late st Contact Info) Description 03/25/2016 Orders Only ROSALES CONVERSION [place], [place] [id number] , Generic Conversion, Social History Tobacco Use [...] Info) Description 09/25/2024 2:00 PM SALES OPERATIONS ASSISTANT Appointment [facility] [address] [place] [address] Zayra Powell, RAIL SIGNAL MECHANIC [address] [place] [address] 10/16/2024 3:30 PM SALES OPERATIONS ASSISTANT Office Visit [facility] [address] [place] [phone] Brit Gonzáles MD 619 [place] [address] documented as of this encounter Procedures Procedure Name Priority Date/Time Associated Diagnosis Comments POCT GLUCOSE - VALLECILLO DOCKED DEVICE Routine 03/25/2016 12:05 AM CDT documented in this encounter Results * (ABNORMAL) POCT glucose (03/25/2016 12:05 AM CDT) GLUCOSE POC 125(H) 70 - 109 03/25/2016 6:10 AM CDT [facility] LAB ORDERS INTERFACE WHOLE BLOOD SPECIMEN / Unknown 03/25/2016 12:05 AM CDT 03/25/2016 6:10 AM CDT us Generic Conversion Md [facility] POCT ORDERABLES - DEVIC E Final Result [facility] LAB ORDERS INTERFACE US documented in this encounter Visit Diagnoses Not on filedocumented in this encounter Care Teams Automotive Heavy Mechanic Relationship Specialty Start Date End Date Megan Infante MD [address] [facility] [place] [phone] PCP - General FAMILY PRACTICE 04/06/16 Piyush Pandey MD [place] Petrophysicist CARDIOVASCULAR DISEASE 04/06/16 12/28/23 Sharmila Davis, CIGARETTE EXAMINER, DEVELOPMENT REP-C 6[address] [facility] [address] [place] [address] NURSE PRACTITIONER 01/04/17 04/03/24 Linda Block MD 6[address] [facility] [address] [place] [address] [place] Petrophysicist CLINICAL CARDIAC ELECTROPHYSIOLOGY 02/08/17 04/12/23 documented as of this encounter
--- OUTSIDE RECORDS SUMMARY | 2024-09-03 19:17 | XMS_ITS | Encounter Summary ---
Author Organization [facility] Address [facility] [place] [address] [place] [address] Care Team Providers Care Insole Stiffener Name Role Phone Piyush Pandey MD Unavailable UnavailMegan Rodriguez MD Primary Care Provider [phone] Sharmila Davis APRN, PRINCIPAL DATA ARCHITECT-C Unavailable Linda Block MD Unavailable [phone] Encounter Details Date Type Department Care Team (Late st Contact Info) Description 03/23/2016 Orders Only ROSALES CONVERSION [address] [place], [place] [id number] , Generic Conversion, Social History Tobacco Use [...] st Contact Info) Description 09/25/2024 2:00 PM SITE MANAGER Appointment [facility] [address] [place] [address] Zayra Powell, PUBLIC HEALTH STAFF NURSE [address] [place] [address] 10/16/2024 3:30 PM SITE MANAGER Office Visit [facility] [address] [place] [phone] Brit Gonzáles MD 619 [place] [address] documented as of this encounter Procedures Procedure Name Priority Date/Time Associated Diagnosis Comments CBC W/DIFF AUTOMATED NOW 03/23/2016 3:41 PM CDT documented in this encounter Results * (ABNORMAL) CBC W/DIFF AUTOMATED (03/23/2016 3:41 PM CDT) WBC 8.9 4.0 - 10.8 x10'3/uL 03/23/2016 3:53 PM CDT [facility] RBC 4.73 4.50 - 6.10 x10'6/uL 03/23/2016 3:53 PM CDT [facility] HGB 13.8 13.0 - 18.0 G/DL 03/23/2016 3:53 PM CDT [facility] HCT 40.5 37.0 - 52.0 % 03/23/2016 3:53 PM CDT [facility] MCV 85.6 78.0 - 100.0 FL 03/23/2016 3:53 PM CDT [facility] MCH 29.2 27.0 - 31.0 PG 03/23/2016 3:53 PM CDT [facility] MCHC 34.1 33.0 - 36.0 G/DL 03/23/2016 3:53 PM CDT [facility] RDW 13.6 11.5 - 14.5 % 03/23/2016 3:53 PM CDT [facility] PLT 205 150 - 350 x10'3/uL 03/23/2016 3:53 PM CDT [facility] MPV 10.8(H) 7.4 - 10.4 FL 03/23/2016 3:53 PM CDT [facility] ABS. NEUTROPHILS TOTAL 6.73 1.60 - 8.30 x10'3/uL 03/23/2016 3:53 PM CDT [facility] ABS. LYMPHOCYTES 1.18 0.80 - 4.70 x10'3/uL 03/23/2016 3:53 PM CDT [facility] ABS. MONOCYTES 0.80 0.00 - 1.50 x10'3/uL 03/23/2016 3:53 PM CDT [facility] ABS. EOSINOPHILS 0.12 0.00 - 0.40 x10'3/uL 03/23/2016 3:53 PM CDT [facility] ABS. BASOPHILS 0.02 0.00 - 0.20 x10'3/uL 03/23/2016 3:53 PM CDT [facility] ABS. IMMATURE GRANULOCYTES 0.03 0.00 - 0.03 x10'3/uL 03/23/2016 3:53 PM CDT [facility] ABS. NUCLEATED RBC'S 0.00 0.0 x10'3/uL 03/23/2016 3:53 PM CDT [facility] PLASMA SPECIMEN / Unknown 03/23/2016 3:41 PM CDT 03/23/2016 3:50 PM CDT us Generic Conversion Md [facility] Final R esult [facility] [address] [place] [address], [id number] documented in this encounter Visit Diagnoses Not on filedocumented in this encounter Care Teams Insole Stiffener Relationship Specialty Start Date End Date Megan Infante MD [address] [place] [phone] PCP - General FAMILY PRACTICE 04/06/16 Piyush Pandey MD [place] Act Tutor CARDIOVASCULAR DISEASE 04/06/16 12/28/23 Sharmila Davis, TELEPHOTO INSTALLER, PRINCIPAL DATA ARCHITECT-C [address] [facility] [address] [place] [phone] NURSE PRACTITIONER 01/04/17 04/03/24 Linda Block MD [address] [facility] [address] [place] [address] [place] Act Tutor CLINICAL CARDIAC ELECTROPHYSIOLOGY 02/08/17 04/12/23 documented as of this encounter
--- OUTSIDE RECORDS SUMMARY | 2024-09-03 19:17 | XMS_ITS | Encounter Summary ---
Author Organization [facility] Address [facility]6 [facility] [place] [address] [place] [address] Care Team Providers Care Heel Room Supervisor Name Role Phone Piyush Pandey MD Unavailable UnavailMegan Rodriguez MD Primary Care Provider [phone] Sharmila Davis APRN, ASSEMBLER DC FIELD YOKE-C Unavailable Linda Block MD Unavailable [phone] Encounter Details Date Type Department Care Team (Late st Contact Info) Description 10/24/2015 Orders Only ROSALES CONVERSION [place], [place] [id number] , Generic Conversion, Social History Tobacco Use [...] Contact Info) Description 09/25/2024 2:00 PM HAND ALTERATIONS SEAMSTRESS Appointment [facility] [address] [place] [address] Zayra Powell, LOAN ANALYST [address] [place] [address] 10/16/2024 3:30 PM HAND ALTERATIONS SEAMSTRESS Office Visit [facility] [address] [place] [phone] Brit Gonzáles MD [address] [place] [address] documented as of this encounter Procedures Procedure Name Priority Date/Time Associated Diagnosis Comments BASIC METABOLIC PANEL TIMED 10/24/2015 4:25 AM HAND ALTERATIONS SEAMSTRESS documented in this encounter Results * (ABNORMAL) BASIC METABOLIC PANEL (10/24/2015 4:25 AM HAND ALTERATIONS SEAMSTRESS) SODIUM S/P/B 134(L) 135 - 147 MMOL/L 10/24/2015 5:27 AM [facility]ATIONS [facility] LAB ORDERS INTERFACE POTASSIUM S/P/B 3.7 3.5 - 5.0 MMOL/L 10/24/2015 5:27 AM HAND ALTERATIONS SEAMSTRESS [facility] LAB ORDERS INTERFACE CHLORIDE S/P/B 101 98 - 107 MMOL/L 10/24/2015 5:27 AM HAND ALTERATIONS SEAMSTRESS [facility] LAB ORDERS INTERFACE CO2 25.3 22 - 29 MMOL/L 10/24/2015 5:[address] [facility] LAB ORDERS INTERFACE GLUCOSE 103 70 - 109 MG/DL 10/24/2015 5:27 AM HAND ALTERATIONS SEAMSTRESS [facility] LAB ORDERS INTERFACE BUN 16 8 - 26 MG/DL 10/24/2015 5:27 AM HAND ALTERATIONS SEAMSTRESS [facility] LAB ORDERS INTERFACE CREATININE S/P/B 1.00 0.70 - 1.30 MG/DL 10/24/2015 5:[address] [facility] LAB ORDERS INTERFACE CALCIUM S/P/B 9.2 8.8 - 10.0 MG/DL 10/24/2015 5:27 AM HAND ALTERATIONS SEAMSTRESS [facility] LAB ORDERS INTERFACE EGFR NON-AFR. AMER. 76 >60 ML/MIN/1.7 3 M2 10/24/2015 5:27 AM HAND ALTERATIONS SEAMSTRESS [facility] LAB ORDERS INTERFACE EGFR AFR. AMER. 92 >60 ML/MIN/1.7 3 M2 10/24/2015 5:27 AM [facility] LAB ORDERS INTERFACE ANION GAP 7.7 MMOL/L 10/24/2015 5:[address] [facility] LAB ORDERS INTERFACE OSMOLALITY (CALC) 270 MOSM/KG 10/24/2015 5:[address] [facility] LAB ORDERS INTERFACE PLASMA SPECIMEN / Unknown 10/24/2015 4:25 AM HAND ALTERATIONS SEAMSTRESS 10/24/2015 4:43 AM HAND ALTERATIONS SEAMSTRESS us Generic Conversion Md [facility] Final R esult [facility] LAB [place] [address], documented in this encounter Visit Diagnoses Not on filedocumented in this encounter Care Teams Heel Room Supervisor Relationship Specialty Start Date End Date Megan Infante MD [address] [facility] [place] [phone] PCP - General FAMILY PRACTICE 04/06/16 Piyush Pandey MD Driver Land Mobile Radio Technician CARDIOVASCULAR DISEASE 04/06/16 12/28/23 Sharmila Davis, TRANSFER CAR OPERATOR, ASSEMBLER DC FIELD YOKE-C [address] [facility] [address] [place] [phone] NURSE PRACTITIONER 01/04/17 04/03/24 Linda Block MD [address] [facility] [address] [place] [phone] Driver Land Mobile Radio Technician CLINICAL CARDIAC ELECTROPHYSIOLOGY 02/08/17 04/12/23 documented as of this encounter
--- OUTSIDE RECORDS SUMMARY | 2024-09-03 19:17 | XMS_ITS | Encounter Summary ---
Author Organization [facility] Address [address] [place] [address]. [place] [address] [place] [address] Care Team Providers Care Managing Partner Digital Content Marketing [place] Name Role Phone Unavailable Primary Care Provider Unavailabl e Encounter Details Date Type Department Care Team (Late st Contact Info) Description 01/29/2016 Scan [facility] [address] [place] [address] Eun Tovar MD Social History [...] st Contact Info) Description 09/25/2024 2:00 PM UNINDENTURED APPRENTICE Appointment [facility] [address] [place] [address] Zayra Powell, SECURITY TEAM LEAD [address] [place] [address] 10/16/2024 3:30 PM UNINDENTURED APPRENTICE Office Visit [facility] [address] [phone] Brit Gonzáles MD [address] [place] [address] documented as of this encounter Visit Diagnoses Not on filedocumented in this encounter
--- OUTSIDE RECORDS SUMMARY | 2024-09-03 19:17 | XMS_ITS | Encounter Summary ---
Author Organization [facility] Address [facility]6 [place] [address] [place] [address] Care Team Providers Care Skidway Worker Name Role Phone Piyush Pandey MD Unavailable UnavailMegan Rodriguez MD Primary Care Provider [phone] Sharmila Davis APRN, SENIOR HR BUSINESS PARTNER-C Unavailable Linda Block MD Unavailable [phone] Encounter Details Date Type Department Care Team (Late st Contact Info) Description 03/23/2016 Orders Only ROSALES CONVERSION [place], [place] [id number] , Generic Conversion, Social History Tobacco Use [...] 2:00 PM MAT MAKING MACHINE TENDER Appointment [facility] [address] [place] [address] Zayra Powell, TOOL CRIB ATTENDANT [address] [place] [address] 10/16/2024 3:30 PM MAT MAKING MACHINE TENDER Office Visit [facility] [address] [place] [phone] Brit Gonzáles MD 619 [place] [address] documented as of this encounter Procedures Procedure Name Priority Date/Time Associated Diagnosis Comments MAGNESIUM NOW 03/23/2016 3:41 PM CDT documented in this encounter Results * MAGNESIUM (03/23/2016 3:41 PM CDT) MAGNESIUM 2.1 1.6 - 2.6 MG/DL 03/23/2016 4:19 PM CDT [facility] SERUM OR PLASMA SPECIMEN / Unknown 03/23/2016 3:41 PM CDT 03/23/2016 3:50 PM CDT us Generic Conversion Md [facility] Final R esult [facility] [address] [place] [address], [id number] documented in this encounter Visit Diagnoses Not on filedocumented in this encounter Care Teams Skidway Worker Relationship Specialty Start Date End Date Megan Infante MD [address] [facility] [place] [phone] PCP - General FAMILY PRACTICE 04/06/16 Piyush Pandey MD [place] [employer] Iron Worker CARDIOVASCULAR DISEASE 04/06/16 12/28/23 Sharmila Davis APRN, SENIOR HR BUSINESS PARTNER-C [address] [facility] [address] [place] [phone] NURSE PRACTITIONER 01/04/17 04/03/24 Linda Block MD [address] [facility] [address] [place] [address] [place] C Iron Worker CLINICAL CARDIAC ELECTROPHYSIOLOGY 02/08/17 04/12/23 documented as of this encounter
--- OUTSIDE RECORDS SUMMARY | 2024-09-03 19:17 | XMS_ITS | Encounter Summary ---
Author Organization [facility] Address [address] [place] [address]. [place] [address] [place] [address] Care Team Providers Care Technology Coach Name Role Phone Unavailable Primary Care Provider Unavailabl e Encounter Details Date Type Department Care Team (Late st Contact Info) Description 10/23/2015 Scan [facility] 6[address] [place] [address] Eun Tovar MD Social History [...] Contact Info) Description 09/25/2024 2:00 PM CLOTH FEEDER Appointment [facility] [address] [place] [address] Zayra Powell, SWITCHBOX ASSEMBLER [address] [place] [address] 10/16/2024 3:30 PM CLOTH FEEDER Office Visit [facility] [address] [phone] Brit Gonzáles MD [address] [place] [address] documented as of this encounter Visit Diagnoses Not on filedocumented in this encounter
--- OUTSIDE RECORDS SUMMARY | 2024-09-03 19:17 | XMS_ITS | Encounter Summary ---
Author Organization [facility] Address [facility]6 [facility] [place] [address] [place] [address] Care Team Providers Care Weekend Receptionist Name Role Phone Piyush Pandey MD Unavailable UnavailMegan Rodriguez MD Primary Care Provider [phone] Sharmila Davis APRN, PLUMBING AND HEATING CONTRACTOR-C Unavailable Linda Block MD Unavailable [phone] Encounter Details Date Type Department Care Team (Late st Contact Info) Description 03/25/2016 Orders Only ROSALES CONVERSION [place], [place] [id number] , Generic Conversion, Social History Tobacco Use [...] st Contact Info) Description 09/25/2024 2:00 PM STEEL CHECKER Appointment [facility] [address] [place] [address] Zayra Powell, ANTIQUE FINISHER [address] [place] [address] 10/16/2024 3:30 PM STEEL CHECKER Office Visit [facility] [address] [place] [phone] Brit Gonzáles MD [address] [place] [address] documented as of this encounter Procedures Procedure Name Priority Date/Time Associated Diagnosis Comments POCT GLUCOSE - VALLECILLO DOCKED DEVICE Routine 03/25/2016 5:32 PM CDT documented in this encounter Results * POCT glucose (03/25/2016 5:32 PM CDT) GLUCOSE POC 109 70 - 109 03/25/2016 5:34 PM CDT [facility] LAB ORDERS INTERFACE WHOLE BLOOD SPECIMEN / Unknown 03/25/2016 5:32 PM CDT 03/25/2016 5:34 PM CDT us Generic Conversion Md [facility] POCT ORDERABLES - DEVIC E Final Result [facility] LAB ORDERS INTERFACE US documented in this encounter Visit Diagnoses Not on filedocumented in this encounter Care Teams Weekend Receptionist Relationship Specialty Start Date End Date Megan Infante MD [address] [place] [phone] PCP - General FAMILY PRACTICE 04/06/16 Piyush Pandey MD [place] [employer] Manufacturing Supervisor CARDIOVASCULAR DISEASE 04/06/16 12/28/23 Sharmila Davis, POST ADOPTION COORDINATOR, PLUMBING AND HEATING CONTRACTOR-C [address] [facility] [address] [place] [address] NURSE PRACTITIONER 01/04/17 04/03/24 Linda Block MD [address] [facility] [address] [place] [address] [employer] [employer] Supervisor CLINICAL CARDIAC ELECTROPHYSIOLOGY 02/08/17 04/12/23 documented as of this encounter
--- OUTSIDE RECORDS SUMMARY | 2024-09-03 19:17 | XMS_ITS | Encounter Summary ---
Author Organization [facility] Address Critical access hospital6 [facility] [place] [address] [place] [address] Care Team Providers Care Chemical Process Analyst Name Role Phone Piyush Pandey MD Unavailable UnavailMegan Rodriguez MD Primary Care Provider [phone] Sharmila Davis APRN, MULESER-C Unavailable Linda Block MD Unavailable [phone] Encounter Details Date Type Department Care Team (Late st Contact Info) Description 03/27/2016 Orders Only ROSALES CONVERSION [place], [place] [id number] , Generic Conversion, Social History Tobacco Use [...] st Contact Info) Description 09/25/2024 2:00 PM RADIOLOGY PHYSICIAN ASSISTANT Appointment [facility] [address] [place] [address] Zayra Powell, COST ESTIMATING CLERK [address] [place] [address] 10/16/2024 3:30 PM RADIOLOGY PHYSICIAN ASSISTANT Office Visit [facility] [address] [place] [phone] Brit Gonzáles MD 619 [place] [address] documented as of this encounter Procedures Procedure Name Priority Date/Time Associated Diagnosis Comments POCT GLUCOSE - VALLECILLO DOCKED DEVICE Routine 03/27/2016 7:17 AM CDT documented in this encounter Results * (ABNORMAL) POCT glucose (03/27/2016 7:17 AM CDT) GLUCOSE POC 145(H) 70 - 109 03/27/2016 7:18 AM CDT [facility] LAB ORDERS INTERFACE WHOLE BLOOD SPECIMEN / Unknown 03/27/2016 7:17 AM CDT 03/27/2016 7:18 AM CDT us Generic Conversion Md [facility] POCT ORDERABLES - DEVIC E Final Result [facility] ORDERS INTERFACE US documented in this encounter Visit Diagnoses Not on filedocumented in this encounter Care Teams Chemical Process Analyst Relationship Specialty Start Date End Date Megan Infante MD [address] [facility] [place] [phone] PCP - General FAMILY PRACTICE 04/06/16 Piyush Pandey MD [place] [employer] Program Manager CARDIOVASCULAR DISEASE 04/06/16 12/28/23 Sharmila Davis, MOTORIZED SQUAD SERGEANT, MULESER-C [address] [facility] [address] [place] [phone] NURSE PRACTITIONER 01/04/17 04/03/24 Linda Block MD [address] [facility] [address] [place] [address] [place] [employer] Program Manager CLINICAL CARDIAC ELECTROPHYSIOLOGY 02/08/17 04/12/23 documented as of this encounter
--- OUTSIDE RECORDS SUMMARY | 2024-09-03 19:17 | XMS_ITS | Encounter Summary ---
Author Organization [facility] Address [facility] [place] [address] [place] [address] Care Team Providers Care Auditor/Quality Name Role Phone Piyush Pandey MD Unavailable UnavailMegan Rodriguez MD Primary Care Provider [phone] Sharmila Davis APRN, DRIVER SALESMAN-C Unavailable Linda Block MD Unavailable [phone] Encounter Details Date Type Department Care Team (Late st Contact Info) Description 03/23/2016 Orders Only ROSALES CONVERSION [place], [place] [id number] , Generic Conversion, Social History Tobacco Use [...] st Contact Info) Description 09/25/2024 2:00 PM MATERIALS CLERK Appointment [facility] [address] [place] [address] Zarya Powell, HIDE CLEANER [address] [place] [address] 10/16/2024 3:30 PM MATERIALS CLERK Office Visit [facility] [address] [place] [phone] Brit Gonzáles MD 619 [place] [address] documented as of this encounter Procedures Procedure Name Priority Date/Time Associated Diagnosis Comments COMPREHENSIVE METABOLIC PANEL NOW 03/23/2016 3:41 PM CDT documented in this encounter Results * (ABNORMAL) COMPREHENSIVE METABOLIC PANEL (03/23/2016 3:41 PM CDT) SODIUM S/P/B 139 135 - 147 MMOL/L 03/23/2016 4:19 PM CDT [facility] POTASSIUM S/P/B 4.1 3.5 - 5.0 MMOL/L 03/23/2016 4:19 PM CDT [facility] CHLORIDE S/P/B 103 98 - 107 MMOL/L 03/23/2016 4:19 PM CDT [facility] CO2 25.4 22 - 29 MMOL/L 03/23/2016 4:19 PM CDT [facility] GLUCOSE 237(H) 70 - 109 MG/DL 03/23/2016 4:19 PM CDT [facility] BUN 19 8 - 26 MG/DL 03/23/2016 4:19 PM CDT [facility] CREATININE S/P/B 1.24 0.70 - 1.30 MG/DL 03/23/2016 4:19 PM CDT [facility] CALCIUM S/P/B 9.5 8.8 - 10.0 MG/DL 03/23/2016 4:19 PM CDT [facility] BILIRUBIN TOTAL S/P/B 0.9 0.2 - 1.2 MG/DL 03/23/2016 4:19 PM CDT [facility] ALKALINE PHOSPHATASE S/P/B 70 45 - 115 U/L 03/23/2016 4:19 PM CDT [facility] AST 18 5 - 35 U/L 03/23/2016 4:19 PM CDT [facility] ALT 21 0 - 55 U/L 03/23/2016 4:19 PM CDT [facility] TOTAL PROTEIN S/P/B 7.1 6.0 - 8.3 G/DL 03/23/2016 4:19 PM CDT [facility] ALBUMIN S/P/B 4.0 3.4 - 4.9 G/DL 03/23/2016 4:19 PM CDT [facility] ANION GAP 10.6 MMOL/L 03/23/2016 4:19 PM CDT [facility] OSMOLALITY (CALC) 287 MOSM/KG 03/23/2016 4:19 PM CDT [facility] EGFR NON-AFR. AMER. 59(L) >60 ML/MIN/1.7 3 M2 03/23/2016 4:19 PM CDT [facility] EGFR AFR. AMER. 72 >60 ML/MIN/1.7 3 M2 03/23/2016 4:19 PM CDT [facility] PLASMA SPECIMEN / Unknown 03/23/2016 3:41 PM CDT 03/23/2016 3:50 PM CDT us Generic Conversion Md [facility] Final R esult [facility] [address] [place] [address], [id number] documented in this encounter Visit Diagnoses Not on filedocumented in this encounter Care Teams Auditor/Quality Relationship Specialty Start Date End Date Megan Infante MD [address] [facility] [place] [phone] PCP - General FAMILY PRACTICE 04/06/16 Piyush Pandey MD [place] Parts Inspector CARDIOVASCULAR DISEASE 04/06/16 12/28/23 Sharmila Davis, FACING BASTER, DRIVER SALESMAN-C [address] [facility] [address] [place] [phone] NURSE PRACTITIONER 01/04/17 04/03/24 Linda Block MD [address] [facility] [address] [place] [address] [place] [employer] Inspector CLINICAL CARDIAC ELECTROPHYSIOLOGY 02/08/17 04/12/23 documented as of this encounter
--- OUTSIDE RECORDS SUMMARY | 2024-09-03 19:17 | XMS_ITS | Encounter Summary ---
Author Organization [facility] Address [facility]6 [facility] [place] [address] [place] [address] Care Team Providers Care Ep Tech Name Role Phone Piyush Pandey MD Unavailable UnavailMegan Rodriguez MD Primary Care Provider [phone] Sharmila Davis APRN, ELDER COUNSELOR-C Unavailable Linda Block MD Unavailable [phone] Encounter Details Date Type Department Care Team (Late st Contact Info) Description 03/26/2016 Orders Only ROSALES CONVERSION ONE [place], [place] [id number] , Generic Conversion, Social History Tobacco Use [...] Contact Info) Description 09/25/2024 2:00 PM EPIC APPLICATION COORDINATOR Appointment [facility] [address] [place] [address] Zayra Powell, RAZOR SHARPENER [address] [place] [address] 10/16/2024 3:30 PM EPIC APPLICATION COORDINATOR Office Visit [facility] [address] [place] [phone] Brit Gonzáles MD 619 [place] [address] documented as of this encounter Procedures Procedure Name Priority Date/Time Associated Diagnosis Comments MAGNESIUM Routine 03/26/2016 3:59 AM CDT documented in this encounter Results * MAGNESIUM (03/26/2016 3:59 AM CDT) MAGNESIUM 2.1 1.6 - 2.6 MG/DL 03/26/2016 4:42 AM CDT [facility] SERUM OR PLASMA SPECIMEN / Unknown 03/26/2016 3:59 AM CDT 03/26/2016 4:00 AM CDT us Generic Conversion Md [facility] Final R esult [facility] [address] [place] [address], [id number] documented in this encounter Visit Diagnoses Not on filedocumented in this encounter Care Teams Ep Tech Relationship Specialty Start Date End Date Megan Infante MD [address] [facility] [address] [place] [phone] PCP - General FAMILY PRACTICE 04/06/16 Piyush Pandey MD [place] [employer] Production Manager CARDIOVASCULAR DISEASE 04/06/16 12/28/23 Sharmila Davis APRN, ELDER COUNSELOR-C [address] [facility] [address] [place] [phone] NURSE PRACTITIONER 01/04/17 04/03/24 Linda Block MD [address] [facility] [address] [place] [phone] [place] Digital Production Manager CLINICAL CARDIAC ELECTROPHYSIOLOGY 02/08/17 04/12/23 documented as of this encounter
--- OUTSIDE RECORDS SUMMARY | 2024-09-03 19:18 | XMS_ITS | Encounter Summary ---
Author Organization [facility] Address [address] [place] [address]. [place] [address] [place] [address] Care Team Providers Care Asbestos Brake Lining Finisher Helper Name Role Phone Piyush Pandey MD Unavailable UnavailMegan Rodriguez MD Primary Care Provider [phone] Sharmila Davis APRN, BOTTOM BRUSHER-C Unavailable Linda Block MD Unavailable [phone] Encounter Details Date Type Department Care Team (Late st Contact Info) Description 09/17/[address] [facility] [address] [place] [address] Matias Mac MD [address] [place] [address] Social History Tobacco Use Types Packs/Day Years [...] st Contact Info) Description 09/25/2024 2:00 PM SURVEILLANCE INSPECTOR Appointment [facility] [address] [place] [address] Zayra Powell FNP [address] [place] [address] 10/16/2024 3:30 PM SURVEILLANCE INSPECTOR Office Visit [facility] [address] [place] [phone] Brit Gonzáles MD 619 [place] [address] documented as of this encounter Visit Diagnoses Diagnosis detention current use of anticoagulant therapy documented in this encounter Care Teams Asbestos Brake Lining Finisher Helper Relationship Specialty Start Date End Date Megan Infante MD [address] [place] [phone] PCP - General FAMILY PRACTICE 04/06/16 Piyush Pandey MD [place] [employer] Bulk Material Operator CARDIOVASCULAR DISEASE 04/06/16 12/28/23 Sharmila Davis, DANNY, BOTTOM BRUSHER-C [address] [facility] [address] [place] [phone] NURSE PRACTITIONER 01/04/17 04/03/24 Linda Block MD [address] [facility] [address] [place] [address] [place] C[employer]ing Bulk Material Operator CLINICAL CARDIAC ELECTROPHYSIOLOGY 02/08/17 04/12/23 documented as of this encounter
--- OUTSIDE RECORDS SUMMARY | 2024-09-03 19:18 | XMS_ITS | Encounter Summary ---
Author Organization [facility] Address [address] [place] [address]. [place] [address] [place] [address] Care Team Providers Care Tower Climber Name Role Phone Unavailable Primary Care Provider Unavailabl e Encounter Details Date Type Department Care Team (Late st Contact Info) Description 04/17/2014 Abstract [facility] [address] [place] [address] Eun Tovar MD Social History [...] st Contact Info) Description 09/25/2024 2:00 PM NETWORK STRATEGIST Appointment [facility] [address] [place] [address] Zayra Powell, SOLE FILLER [address] [place] [address] 10/16/2024 3:30 PM NETWORK STRATEGIST Office Visit [facility] [address] [phone] Brit Gonzáles MD 6[address] [place] [address] documented as of this encounter Visit Diagnoses Not on filedocumented in this encounter
--- OUTSIDE RECORDS SUMMARY | 2024-09-03 19:18 | XMS_ITS | Encounter Summary ---
Author Organization [facility] Address [address] [place] [address]. [place] [address] [place] [address] Care Team Providers Care Facilitator Name Role Phone Unavailable Primary Care Provider Unavailabl e Encounter Details Date Type Department Care Team (Late st Contact Info) Description 11/05/2014 Abstract [facility] 6[address] [place] [address] Eun Tovar MD Social History [...] st Contact Info) Description 09/25/2024 2:00 PM BUCKET CHUCKER Appointment [facility] [address] [place] [address] Zayra Powell, STEEL TESTER [address] [place] [address] 10/16/2024 3:30 PM BUCKET CHUCKER Office Visit [facility] [address] [phone] Brit Gonzáles MD 619 [place] [address] documented as of this encounter Visit Diagnoses Not on filedocumented in this encounter
--- OUTSIDE RECORDS SUMMARY | 2024-09-03 19:18 | XMS_ITS | Encounter Summary ---
Author Organization [facility] Address [address] [place] [address]. [place] [address] [place] [address] Care Team Providers Care Tour Conductor Name Role Phone Piyush Pandey MD Unavailable UnavailMegan Rodriguez MD Primary Care Provider [phone] Sharmila Davis APRN, DIRECTOR OF SCIENCE-C Unavailable Linda Block MD Unavailable [phone] Encounter Details Date Type Department Care Team (Late st Contact Info) Description 09/24/[address] [facility] [address] [place] [address] Matias Mac MD [address] [place] [address] Social History Tobacco Use Types Packs/Day Years [...] st Contact Info) Description 09/25/2024 2:00 PM SHEARING SUPERVISOR Appointment [facility] [address] [place] [address] Zayra Powell FNP [address] [place] [address] 10/16/2024 3:30 PM SHEARING SUPERVISOR Office Visit [facility] [address] [place] [address] Brit Gonzáles MD [address]19 [place] [address] documented as of this encounter Visit Diagnoses Diagnosis Atrial fibrillation (CMS/HCC HHS/HCC) Atrial fibrillation documented in this encounter Care Teams Tour Conductor Relationship Specialty Start Date End Date Megan Infante MD [address] [place] [phone] PCP - General FAMILY PRACTICE 04/06/16 Piyush Pandey MD Ismay Perfect Binder Feeder Offbearer CARDIOVASCULAR DISEASE 04/06/16 12/28/23 Sharmila Davis APRN, DIRECTOR OF SCIENCE-C 6[address] [facility] [address] [place] [address] NURSE PRACTITIONER 01/04/17 04/03/24 Linda Block MD 619 [facility] [address] [place] [address] Ismay Perfect Binder Feeder Offbearer CLINICAL CARDIAC ELECTROPHYSIOLOGY 02/08/17 04/12/23 documented as of this encounter
--- OUTSIDE RECORDS SUMMARY | 2024-09-03 19:18 | XMS_ITS | Encounter Summary ---
Author Organization [facility] Address [address] [place] [address]. [place] [address] [place] [address] Care Team Providers Care Apron Worker Name Role Phone Unavailable Primary Care Provider Unavailabl e Encounter Details Date Type Department Care Team (Late st Contact Info) Description 07/11/2015 Scan [facility] [address] [place] [address] Eun Tovar MD Social History [...] st Contact Info) Description 09/25/2024 2:00 PM BENCH ASSEMBLY INSPECTOR Appointment [facility] [address] [place] [address] Zayra Powell, STEELER [address] [place] [address] 10/16/2024 3:30 PM BENCH ASSEMBLY INSPECTOR Office Visit [facility] [address] [phone] Brit Gonzáles MD [address]19 [place] [address] documented as of this encounter Visit Diagnoses Not on filedocumented in this encounter
--- OUTSIDE RECORDS SUMMARY | 2024-09-03 19:18 | XMS_ITS | Encounter Summary ---
Author Organization [facility] Address [address] [place] [address]. [place] [address] [place] [address] Care Team Providers Care Pastry Artist Name Role Phone Unavailable Primary Care Provider Unavailabl e Encounter Details Date Type Department Care Team (Late st Contact Info) Description 10/01/2015 Abstract [facility] [address] [place] [address] Eun Tovar MD Social History [...] st Contact Info) Description 09/25/2024 2:00 PM CANDY CUTTER MACHINE Appointment [facility] [address] [place] [address] Zayra Powell, TABLEAU LEAD [address] [place] [address] 10/16/2024 3:30 PM CANDY CUTTER MACHINE Office Visit [facility] [address] [phone] Brit Gonzáles MD [address] [place] [address] documented as of this encounter Visit Diagnoses Not on filedocumented in this encounter
--- OUTSIDE RECORDS SUMMARY | 2024-09-03 19:18 | XMS_ITS | Encounter Summary ---
Author Organization [facility] Address [address] [place] [address]. [place] [address] [place] [address] Care Team Providers Care Numerical Tool Programmer Name Role Phone Unavailable Primary Care Provider Unavailabl e Encounter Details Date Type Department Care Team (Late st Contact Info) Description 06/20/2015 Abstract [facility] [address] [place] [address] Eun Tovar MD Social History [...] st Contact Info) Description 09/25/2024 2:00 PM GUEST HOUSE MANAGER Appointment [facility] [address] [place] [address] Zayra Powell, AUTOMOTIVE ALIGNMENT SPECIALIST [address] [place] [address] 10/16/2024 3:30 PM GUEST HOUSE MANAGER Office Visit [facility] [address] [phone] Brit Gonzáles MD 619 [place] [address] documented as of this encounter Visit Diagnoses Not on filedocumented in this encounter
--- OUTSIDE RECORDS SUMMARY | 2024-09-03 19:18 | XMS_ITS | Encounter Summary ---
Author Organization [facility] Address [address] [place] [address]. [place] [address] [place] [address] Care Team Providers Care Medical Staff Coordinator Name Role Phone Unavailable Primary Care Provider Unavailabl e Encounter Details Date Type Department Care Team (Late st Contact Info) Description 10/02/2015 Abstract [facility] 6[address] [place] [address] Eun Tovar MD Social History [...] Contact Info) Description 09/25/2024 2:00 PM PROJECT ESTIMATOR Appointment [facility] [address] [place] [address] Zayra Powell, ASSOCIATE WEB DEVELOPER [address] [place] [address] 10/16/2024 3:30 PM PROJECT ESTIMATOR Office Visit [facility] [address] [phone] Brit Gonzáles MD 619 [place] [address] documented as of this encounter Procedures Procedure Name Priority Date/Time Associated Diagnosis Comments ECG 12-LEAD Routine 10/02/2015 6:08 AM PROJECT ESTIMATOR documented in this encounter Results * ECG 12 lead (10/02/2015 6:08 AM PROJECT ESTIMATOR) 10/02/2015 6:08 AM PROJECT ESTIMATOR Narrative [facility] - 10/02/2015 1:18 PM PROJECT ESTIMATOR ? [facility] ? [address] [place], [place] ??[address] ? Test Date: ?2015-10-02 Pat Name: ? OBIE BETHANY ?Department: ?? 1 ? Room: ? 0455 Gender: ? M ?Waste Specialist: ?? sg : ?1955 ? Requested By: MARLEE VEGA Order Number: [id number] ? Reading MD: ?? Martin Perry ? Measurements Intervals ?[place] ? Rate: ? 79 ? P: ?17 RI: ? 203 ?QRS: ?-18 QRSD: ? 127 ?T: ?141 QT: ? 416 ? QTc: ?478 ? Interpretive Statements SINUS RHYTHM LEFT VENTRICULAR HYPERTROPHY AND ST-T CHANGE ECT ESTIMATOR Procedure Note , Eun Tejeda MD - 04/18/2019 [place] [address] [place] [address] Test Date: 2015-10-02 Pat Name: OBIE SIMS Department: 1 Room: [facility] Gender: M Waste Specialist: : 1955 Requested By: MARLEE VEGA Order Number: [id number] Reading MD: Martin Perry Measurements Intervals [place] Rate: 79 P: 17 RI: 203 QRS: -18 QRSD: 127 T: 141 QT: 416 QTc: 478 Interpretive Statements SINUS RHYTHM LEFT VENTRICULAR HYPERTROPHY AND ST-T CHANGE ECT ESTIMATOR us Generic Nikhil Tovar MD ECG ORDERABLES Final R esult [facility] documented in this encounter Visit Diagnoses Not on filedocumented in this encounter
--- OUTSIDE RECORDS SUMMARY | 2024-09-03 19:18 | XMS_ITS | Encounter Summary ---
Author Organization [facility] Address [facility] [place] [address] [place] [address] Care Team Providers Care Superior Court Judge Name Role Phone Piyush Pandey MD Unavailable UnavailMegan Rodriguez MD Primary Care Provider [phone] Sharmila Davis APRN, BLACK OXIDE COATING EQUIPMENT TENDER-C Unavailable Linda Block MD Unavailable [phone] Encounter Details Date Type Department Care Team (Latest Contact Info) Description 02/19/[address] [facility] Shubham Callahan MD [address] [place] [address] Social History Tobacco Use Types Packs/Day Years [...] st Contact Info) Description 09/25/2024 2:00 PM MILK TANKER DRIVER Appointment [facility] [address] [place] [address] Zayra Powell FNP [address] [place] [address] 10/16/2024 3:30 PM MILK TANKER DRIVER Office Visit [facility] [address] [place] [address] Brit Gonzáles MD 619 [place] [address] documented as of this encounter Visit Diagnoses Not on filedocumented in this encounter Care Teams Superior Court Judge Relationship Specialty Start Date End Date Megan Infante MD [address] [facility] [place] [address] PCP - General FAMILY PRACTICE 04/06/16 Piyush Pandey MD [place] Technical Support Engineer CARDIOVASCULAR DISEASE 04/06/16 12/28/23 Sharmila Davis APRN, BLACK OXIDE COATING EQUIPMENT TENDER-C 619 [facility] [address] [place] [address] NURSE PRACTITIONER 01/04/17 04/03/24 Linda Block MD 619 [facility] [address] [phone] [place] Technical Support Engineer CLINICAL CARDIAC ELECTROPHYSIOLOGY 02/08/17 04/12/23 documented as of this encounter
--- OUTSIDE RECORDS SUMMARY | 2024-09-03 19:18 | XMS_ITS | Encounter Summary ---
Author Organization [facility] Address [address] [place] [address]. [place] [address] [place] [address] Care Team Providers Care History Teacher Name Role Phone Unavailable Primary Care Provider Unavailabl e Encounter Details Date Type Department Care Team (Late st Contact Info) Description 03/29/2014 Abstract [facility] [address] [place] [address] Eun Tovar MD Social History [...] st Contact Info) Description 09/25/2024 2:00 PM GRAIN ELEVATOR WORKER Appointment [facility] [address] [place] [address] Zayra Powell, GIS PROFESSOR [address] [place] [address] 10/16/2024 3:30 PM GRAIN ELEVATOR WORKER Office Visit [facility] [address] [phone] Brit Gonzáles MD 619 [place] [address] documented as of this encounter Visit Diagnoses Not on filedocumented in this encounter
--- OUTSIDE RECORDS SUMMARY | 2024-09-03 19:18 | XMS_ITS | Encounter Summary ---
Author Organization [facility] Address [address] [place] [address]. [place] [address] [place] [address] Care Team Providers Care Airport Traffic Controller Name Role Phone Unavailable Primary Care Provider Unavailabl e Encounter Details Date Type Department Care Team (Late st Contact Info) Description 08/08/2015 Scan [facility] [address] [place] [address] Eun Tovar MD Social History [...] st Contact Info) Description 09/25/2024 2:00 PM DESTINATION COORDINATOR Appointment [facility] [address] [place] [address] Zayra Powell, DISSOLVER OPERATOR [address] [place] [address] 10/16/2024 3:30 PM DESTINATION COORDINATOR Office Visit [facility] [address] [phone] Brit Gonzáles MD 619 [place] [address] documented as of this encounter Visit Diagnoses Not on filedocumented in this encounter
--- OUTSIDE RECORDS SUMMARY | 2024-09-03 19:18 | XMS_ITS | Encounter Summary ---
Author Organization [facility] Address [address] [place] [address]. [place] [address] [place] [address] Care Team Providers Care Crucible Packer Name Role Phone Piyush Pandey MD Unavailable UnavailMegan Rodriguez MD Primary Care Provider [phone] Sharmila Davis APRN, CHIEF MEDICAL DIRECTOR-C Unavailable [phone] Linda Block MD Unavailable [phone] Encounter Details Date Type Department Care Team (Late st Contact Info) Description 08/31/[address] [facility] [address] [place] [address] Matias Mac MD [address] [place] [address] Social History Tobacco Use Types Packs/Day Years [...] st Contact Info) Description 09/25/2024 2:[address] SCAN SPECIAL PROCEDURES TECHNOLOGIST [facility]ointment [facility] [address] [place] [address] Zayra Powell FNP [address] [place] [address] 10/16/2024 3:[address] SCAN SPECIAL PROCEDURES TECHNOLOGIST Office Visit [facility] [address] [place] [phone] Brit Gonzáles MD 619 [place] [address] documented as of this encounter Visit Diagnoses Diagnosis Heart valve replaced by transplant documented in this encounter Care Teams Crucible Packer Relationship Specialty Start Date End Date Megan Infante MD [address] [place] [address] PCP - General FAMILY PRACTICE 04/06/16 Piyush Pandey MD [place] Licensed Nurse Practitioner CARDIOVASCULAR DISEASE 04/06/16 12/28/23 Sharmila Davis, TENANT SELECTOR, CHIEF MEDICAL DIRECTOR-C [address] [facility] [address] [place] [phone] NURSE PRACTITIONER 01/04/17 04/03/24 Linda Block MD 619 [facility] [address] [place] [phone] [place] Licensed Nurse Practitioner CLINICAL CARDIAC ELECTROPHYSIOLOGY 02/08/17 04/12/23 documented as of this encounter
--- OUTSIDE RECORDS SUMMARY | 2024-09-03 19:18 | XMS_ITS | Encounter Summary ---
Author Organization [facility] Address [address] [place] [address]. [place] [address] [place] [address] Care Team Providers Care Operations Research Director Name Role Phone Piyush Pandey MD Unavailable Unavailabl e Megan Infante MD Primary Care Provider [phone] Sharmila Davis APRN, VIRTUALIZATION CONSULTANT-C Unavailable [phone] Linda Block MD Unavailable [phone] Encounter Details Date Type Department Care Team (Late st Contact Info) Description 05/23/2014 Abstract [facility] [address] [place], [place] [address] Paul Conklin MD [address] [place], [place] [address] Social History Tobacco Use Types Packs/Day Years [...] st Contact Info) Description 09/25/2024 2:00 PM SPECIAL SERVICES AGENT Appointment [facility] [address] [place] [address] Zayra Powell FNP [address] [place] [address] 10/16/2024 3:30 PM SPECIAL SERVICES AGENT Office Visit [facility] [address] [place] [address] [place] [address] Brit Gonzáles MD [address] [place] [address] documented as of this encounter Procedures Procedure Name Priority Date/Time Associated Diagnosis Comments ECG 12-LEAD Routine 05/23/2014 1:18 PM CDT documented in this encounter Results * ECG 12 lead (05/23/2014 1:18 PM CDT) 05/23/2014 1:18 PM CDT Narrative [facility] - 05/23/2014 10:53 PM CDT ? [facility] ? [address] [place], [place] ??[address] ? Test Date: ?2014-05-23 Pat Name: ? OBIE SIMS ?Department: ?? 1 ? Room: ? CRU0 Gender: ? M ?Airline Attendant: ?? TJ : ?1955 ? Requested By: PAUL CONKLIN Order Number: [id number] ? Reading : ?? Shaji Aguilera ? Measurements Intervals ?[place] ? Rate: ? 148 ?P: ?23 KS: ? 213 ?QRS: ?0 QRSD: ? 25 ? T: ?214 QT: ? 190 ? QTc: ?298 ? Interpretive Statements ELECTRONIC ATRIAL PACEMAKER ABNORMAL RHYTHM ECG Procedure Note Eun Landry MD - 04/19/2019 [facility] [address] [place] [address] Test Date: 2014-05-23 Pat Name: OBIE SIMS Department: 1 Room: [facility] Gender: M Airline Attendant: TJ : 1955 Requested By: PAUL CONKLIN Order Number: [id number] Reading MD: Shaji Aguilera Measurements Intervals [place] Rate: 148 P: 23 KS: 213 QRS: 0 QRSD: 25 T: 214 QT: 190 QTc: 298 Interpretive Statements ELECTRONIC ATRIAL PACEMAKER ABNORMAL RHYTHM ECG us Generic Conversion Md LANDRY ECG ORDERABLES Final R esult [facility] documented in this encounter Visit Diagnoses Diagnosis 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 documented in this encounter Care Teams Operations Research Director Relationship Specialty Start Date End Date Megan Infante MD [address] [facility] [place] [address] PCP - General FAMILY PRACTICE 04/06/16 Piyush Pandey MD [place] Sales Force Administrator CARDIOVASCULAR DISEASE 04/06/16 12/28/23 Sharmila Davis, MANAGEMENT LIAISON, VIRTUALIZATION CONSULTANT-C [address] [facility] [address] [place] [address] NURSE PRACTITIONER 01/04/17 04/03/24 Linda Block MD [address] [facility] [address] [place] [phone] [place] Sales Force Administrator CLINICAL CARDIAC ELECTROPHYSIOLOGY 02/08/17 04/12/23 documented as of this encounter
--- OUTSIDE RECORDS SUMMARY | 2024-09-03 19:18 | XMS_ITS | Encounter Summary ---
Author Organization [facility] Address [facility] [place] [address] [place] [address] Care Team Providers Care Electrical Superintendent Name Role Phone Piyush Pandey MD Unavailable UnavailMegan Rodriguez MD Primary Care Provider [phone] Sharmila Davis APRN, UNIVERSITY ADMINISTRATIVE ASSISTANT-C Unavailable Linda Block MD Unavailable [phone] Encounter Details Date Type Department Care Team (Latest Contact Info) Description 03/02/2014 Abstract [facility] Social History Tobacco [...] Info) Description 09/25/2024 2:00 PM DIRECTOR OF LAND ACQUISITION Appointment [facility] [address] [place] [address] Zayra Powell, PROJECT MANAGEMENT PROFESSOR [address] [place] [address] 10/16/2024 3:30 PM DIRECTOR OF LAND ACQUISITION Office Visit [facility] [address] [place] [address] Brit Gonzáles MD [address] [place], [place] [phone] documented as of this encounter Visit Diagnoses Not on filedocumented in this encounter Care Teams Electrical Superintendent Relationship Specialty Start Date End Date Megan Infante MD [address] [facility] [place] [address] PCP - General FAMILY PRACTICE 04/06/16 Piyush Pandey MD [place] Assembly Inspector Helper CARDIOVASCULAR DISEASE 04/06/16 12/28/23 Sharmila Davis APRN, UNIVERSITY ADMINISTRATIVE ASSISTANT-C [address] [facility] [address] [place] [phone] NURSE PRACTITIONER 01/04/17 04/03/24 Linda Block MD [address] [facility] [address] [place] [phone] [place] Assembly Inspector Helper CLINICAL CARDIAC ELECTROPHYSIOLOGY 02/08/17 04/12/23 documented as of this encounter
--- OUTSIDE RECORDS SUMMARY | 2024-09-03 19:18 | XMS_ITS | Encounter Summary ---
Author Organization [facility] Address [facility] [place] [address] [place] [address] Care Team Providers Care Clinical Documentation Nurse Name Role Phone Amauri Pandey MD Unavailable Unavailabl Megan Leos MD Primary Care Provider [phone] Sharmila Davis APRN PSYCHOLOGICAL OPERATIONS OFFICER-C Unavailable [phone] Linda Block MD Unavailable [phone] Encounter Details Date Type Department Care Team (Late st Contact Info) Description 04/17/2014 Abstract [facility] Sewage Treatment Plant Operator [address] [place] [address] Amauri Pandey MD Social History Tobacco Use [...] st Contact Info) Description 09/25/2024 2:00 PM PULPWOOD DEALER Appointment [facility] [address] [place] [address] Zayra Powell, COMPANY MINER BLASTING [address] [place] [address] 10/16/2024 3:30 PM PULPWOOD DEALER Office Visit [facility] [address] [place] [phone] Brit Gonzáles MD [address] [place] [address] documented as of this encounter Procedures Procedure Name Priority Date/Time Associated Diagnosis Comments ECG 12-LEAD Routine 04/17/2014 8:23 AM CDT documented in this encounter Results * ECG 12 lead (04/17/2014 8:23 AM CDT) 04/17/2014 8:23 AM CDT Narrative [facility] - 04/18/2014 11:10 AM CDT ? [facility] ? [address] [place], [place] ??[address] ? Test Date: ?2014-04-17 Pat Name: ? OBIE SIMS ?Department: ?? 1 ? Room: ? Gender: ? M ?Utilization Reviewer: ?? hm : ?1955 ? Requested By: AMAURI PANDEY Order Number: [id number] ? Sage LANDRY: ?? Martin Perry ? Measurements Intervals ?[place] ? Rate: ? 52 ? P: ?0 SD: ? 195 ?QRS: ?-17 QRSD: ? 122 ?T: ?122 QT: ? 503 ? QTc: ?471 ? Interpretive Statements SINUS BRADYCARDIA LEFT VENTRICULAR HYPERTROPHY AND ST-T CHANGE Procedure Note Eun Landry MD - 04/19/2019 [place] [address] [place] [address] Test Date: 2014-04-17 Pat Name: OBIE SIMS Department: 1 Room: Gender: M Utilization Reviewer: : 1955 Requested By: AMAURI PANDEY Order Number: [id number] Reading MD: Martin Perry Measurements Intervals Media Rate: 52 P: 0 SD: 195 QRS: -17 QRSD: 122 T: 122 QT: 503 QTc: 471 Interpretive Statements SINUS BRADYCARDIA LEFT VENTRICULAR HYPERTROPHY AND ST-T CHANGE us Generic Conversion Md LANDRY ECG ORDERABLES Final R esult [facility] documented in this encounter Visit Diagnoses Diagnosis Coronary atherosclerosis of [place] coronary artery documented in this encounter Care Teams Clinical Documentation Nurse Relationship Specialty Start Date End Date Megan Infante MD [address] [facility] [phone] PCP - General FAMILY PRACTICE 04/06/16 Amauri Pandey MD [place] Spray Blender CARDIOVASCULAR DISEASE 04/06/16 12/28/23 Sharmial Davis, MECHANICAL ENGINEERING DIRECTOR, PSYCHOLOGICAL OPERATIONS OFFICER-C [address] [facility] [address] [place] [address] NURSE PRACTITIONER 01/04/17 04/03/24 Linda Block MD [address] [facility] [address] [place] [phone] [place] Spray Blender CLINICAL CARDIAC ELECTROPHYSIOLOGY 02/08/17 04/12/23 documented as of this encounter
--- OUTSIDE RECORDS SUMMARY | 2024-09-03 19:18 | XMS_ITS | Encounter Summary ---
Author Organization [facility] Address [address] [place] [address]. [place] [address] [place] [address] Care Team Providers Care Ingot Header Name Role Phone Unavailable Primary Care Provider Unavailabl e Encounter Details Date Type Department Care Team (Late st Contact Info) Description 10/21/2015 Abstract [facility] [address] [place] [address] Eun Landry MD Social History [...] st Contact Info) Description 09/25/2024 2:00 PM SLINGER SEQUINS Appointment [facility] [address] [place] [address] Zayra Powell, STOPER [address] [place] [address] 10/16/2024 3:30 PM SLINGER SEQUINS Office Visit [facility] [address] [phone] Brit Gonzáles MD [address] [place] [address] documented as of this encounter Procedures Procedure Name Priority Date/Time Associated Diagnosis Comments CBC,CONVERSION Routine 10/21/2015 12:48 PM SLINGER SEQUINS BASIC METABOLIC PANEL Routine 10/21/2015 12:48 PM SLINGER SEQUINS MAGNESIUM Routine 10/21/2015 12:48 PM SLINGER SEQUINS documented in this encounter Results * MAGNESIUM (10/21/2015 12:48 PM SLINGER SEQUINS) MAGNESIUM 2.1 1.6 - 2.6 MG/DL MEDINFORMATIX TO EPIC CONVERSION 10/21/2015 12:4 8 PM SLINGER SEQUINS 10/21/2015 12:48 PM SLINGER SEQUINS Narrative MEDINFORMATIX TO EPIC CONVERSION - 10/21/2015 1:38 PM SLINGER SEQUINS Reviewed by DEMETRIS Oct 21 2015 ??2:20:10:000PM us Generic Conversion Md [facility] Final R esult MEDINFORMATIX TO EPIC CONVERSION * (ABNORMAL) BASIC METABOLIC PANEL (10/21/2015 12:48 PM SLINGER SEQUINS) SODIUM S/P/B 139 135 - 147 MMOL/L MEDINFORMATIX TO EPIC CONVERSION POTASSIUM S/P/B 4.2 3.5 - 5.0 MMOL/L MEDINFORMATIX TO EPIC CONVERSION CHLORIDE S/P/B 107 98 - 107 MMOL/L MEDINFORMATIX TO EPIC CONVERSION CO2 26.9 22 - 29 MMOL/L MEDINFORMATIX TO EPIC CONVERSION GLUCOSE 255(H) 70 - 109 MG/DL MEDINFORMATIX TO EPIC CONVERSION BUN 14 8 - 26 MG/DL MEDINFORMATIX TO EPIC CONVERSION CREATININE S/P/B 1.10 0.70 - 1.30 MG/DL MEDINFORMATIX TO EPIC CONVERSION CALCIUM S/P/B 9.3 8.8 - 10.0 MG/DL MEDINFORMATIX TO EPIC CONVERSION EGFR NON-AFR. AMER. 68 >60 ml/min/1. 73 m2 MEDINFORMATIX TO EPIC CONVERSION EGFR AFR. AMER. 82 >60 ML/MIN/1. 73 M2 MEDINFORMATIX TO EPIC CONVERSION ANION GAP 5.1 MMOL/L MEDINFORMA TIX TO EPIC CONVERSION OSMOLALITY (S/P/B) 287 MOSM/KG MEDINFORMATIX T O EPIC CONVERSION 10/21/2015 12:4 8 PM SLINGER SEQUINS 10/21/2015 12:48 PM SLINGER SEQUINS Narrative MEDINFORMATIX TO EPIC CONVERSION - 10/21/2015 1:38 PM SLINGER SEQUINS Reviewed by DEMETRIS Oct 21 2015 ??2:20:10:000PM us Generic Conversion Md [facility] Final R esult MEDINFORMATIX TO EPIC CONVERSION * (ABNORMAL) CBC,CONVERSION (10/21/2015 12:48 PM SLINGER SEQUINS) WBC 8.2 4.0 - 10.8 x10'3/uL MEDINFORMATIX TO EPIC CONVERSION RBC 4.15(L) 4.50 - 6.10 x10'6/uL MEDINFORMATIX TO EPIC CONVERSION HGB 11.9(L) 13.0 - 18.0 G/DL MEDINFORMATIX TO EPIC CONVERSION HCT 36.0(L) 37.0 - 52.0 % MEDINFORMATIX TO EPIC CONVERSION MCV 86.7 78.0 - 100.0 FL MEDINFORMATIX TO EPIC CONVERSION MCH 28.7 27.0 - 31.0 PG MEDINFORMATIX TO EPIC CONVERSION MCHC 33.1 33.0 - 36.0 G/DL MEDINFORMATIX TO EPIC CONVERSION RDW 14.1 11.5 - 14.5 % MEDINFORMATIX TO EPIC CONVERSION PLATELET COUNT 189 150 - 350 x10'3/uL MEDINFORMATIX TO EPIC CONVERSION MPV 11.0(H) 7.4 - 10.4 FL MEDINFORMATIX TO EPIC CONVERSION ABS. IMMATURE GRANULOCYTES 0.02 0.00 - 0.03 x10'3/uL MEDINFORMATIX TO EPIC CONVERSION ABS. NEUTROPHILS 5.77 1.60 - 8.30 x10'3/uL MEDINFORMATIX TO EPIC CONVERSION ABS. LYMPHOCYTES 1.28 0.80 - 4.70 x10'3/uL MEDINFORMATIX TO EPIC CONVERSION ABS. MONOCYTES 0.92 0.00 - 1.50 x10'3/uL MEDINFORMATIX TO EPIC CONVERSION ABS. EOSINOPHILS 0.19 0.00 - 0.40 x10'3/uL MEDINFORMATIX TO EPIC CONVERSION ABS. BASOPHILS 0.04 0.00 - 0.20 x10'3/uL MEDINFORMATIX TO EPIC CONVERSION NRBC 0.00 0.0 x10'3/uL MEDINFORMATIX TO EPIC CONVERSION 10/21/2015 12:4 8 PM SLINGER SEQUINS 10/21/2015 12:48 PM SLINGER SEQUINS Narrative MEDINFORMATIX TO EPIC CONVERSION - 10/21/2015 1:02 PM SLINGER SEQUINS Reviewed by DEMETRIS Oct 21 2015 ??4:39:32:000PM us Generic Conversion Md [facility] Final R esult MEDINFORMATIX TO EPIC CONVERSION documented in this encounter Visit Diagnoses Not on filedocumented in this encounter
--- OUTSIDE RECORDS SUMMARY | 2024-09-03 19:18 | XMS_ITS | Encounter Summary ---
Author Organization [facility] Address [facility] [place] [address] [place] [address] Care Team Providers Care Rail Director Name Role Phone Piyush Pandey MD Unavailable Unavailabl e Megan Infante MD Primary Care Provider [phone] Sharmila Davis APRN, DEGREASER OPERATOR-C Unavailable Linda Block MD Unavailable [phone] Encounter Details Date Type Department Care Team (Late st Contact Info) Description 10/21/2015 Abstract [facility] Vascular Ultrasound - [facility] [address] [place] [address] Linda Block MD [address] [facility] [address] [place] [phone] Social History Tobacco Use Types Packs/Day Years [...] st Contact Info) Description 09/25/2024 2:00 PM BUNCHER MACHINE Appointment [facility] [address] [place] [address] Zayra Powell, INSTRUMENT REPAIR TECHNICIAN [address] [place] [address] 10/16/2024 3:30 PM BUNCHER MACHINE [facility] [address] [facility] [address] [address] Brit Gonzáles MD [address] [place] [address] documented as of this encounter Visit Diagnoses Diagnosis Chronic atrial fibrillation ([facility]/HCC H[facility]/HCC) Atrial fibrillation documented in this encounter Care Teams Rail Director Relationship Specialty Start Date End Date Megan Infante MD [address] [place] [address] PCP - General FAMILY PRACTICE 04/06/16 Piyush Pandey MD [place] Solar Thermal Installer CARDIOVASCULAR DISEASE 04/06/16 12/28/23 Sharmila Davis APRN, DEGREASER OPERATOR-C [address] [facility] [address] [place] [address] NURSE PRACTITIONER 01/04/17 04/03/24 Linda Block MD [address] [facility] [address] [place] [address] [place] Solar Thermal Installer CLINICAL CARDIAC ELECTROPHYSIOLOGY 02/08/17 04/12/23 documented as of this encounter
--- OUTSIDE RECORDS SUMMARY | 2024-09-03 19:18 | XMS_ITS | Encounter Summary ---
Author Organization [facility] Address [facility]6 [place] [address] [place] [address] Care Team Providers Care Logging Supervisor Name Role Phone Piyush Pandey MD Unavailable Unavailabl e Megan Infante MD Primary Care Provider [phone] Sharmila Davis APRN CLAM DREDGE BOAT CAPTAIN-C Unavailable Linda Block MD Unavailable [phone] Jeff Grace MD Unavailable Encounter Details Date Type Department Care Team (Late st Contact Info) Description 05/24/2014 Abstract [facility] [address] [place] [address] , Generic Conversion, Social History Tobacco Use [...] Contact Info) Description 09/25/2024 2:00 PM CAR RACER Appointment [facility] [address] [place] [address] Zayra Powell, ELIGIBILITY EXAMINER [address] [place] [address] 10/16/2024 3:30 PM CAR RACER Office Visit [facility] [address] [place] [address] Brit Gonzáles MD [address] [place] [address] documented as of this encounter Procedures Procedure Name Priority Date/Time Associated Diagnosis Comments ECG 12-LEAD Routine 05/24/2014 6:27 AM CDT documented in this encounter Results * ECG 12 lead (05/24/2014 6:27 AM CDT) 05/24/2014 6:27 AM CDT Narrative [facility] - 05/24/2014 3:01 PM CDT ? [facility] ? [address], [place] ??[address] ? Test Date: ?2014-05-24 Pat Name: ? OBIE SIMS ?Department: ?? 1 ? Room: ? CRU0 Gender: ? M ?Accounts Officer: ?? gs : ?1955 ? Requested By: REEMA SANTAMARIA Order Number: [id number] ? Sage [facility]: ?? Shaji Aguilera ? Measurements Intervals ?Spicer ? Rate: ? 91 ? P: ?14 SC: ? 179 ?QRS: ?-10 QRSD: ? 134 ?T: ?151 QT: ? 381 ? QTc: ?469 ? Interpretive Statements SINUS RHYTHM INTRAVENTRICULAR CONDUCTION DELAY LEFT VENTRICULAR HYPERTROPHY AND ST-T CHANGE Procedure Note Eun Landry MD - 04/19/2019 [facility] [address] [place] [address] Test Date: 2014-05-24 Pat Name: OBIE SIMS Department: 1 Room: [facility] Gender: M Accounts Officer: : 1955 Requested By: REEMA SANTAMARIA Order Number: [id number] Reading : Shaji Aguilera Measurements Intervals Spicer Rate: 91 P: 14 SC: 179 QRS: -10 QRSD: 134 T: 151 QT: 381 QTc: 469 Interpretive Statements SINUS RHYTHM INTRAVENTRICULAR CONDUCTION DELAY LEFT VENTRICULAR HYPERTROPHY AND ST-T CHANGE us Generic Conversion Md [facility] ECG ORDERABLES Final R esult [facility] documented in this encounter Visit Diagnoses Not on filedocumented in this encounter Care Teams Logging Supervisor Relationship Specialty Start Date End Date Megan Infante MD [address] [place] [address] PCP - General FAMILY PRACTICE 04/06/16 Piyush Pandey MD [place] [employer] Department Manager CARDIOVASCULAR DISEASE 04/06/16 12/28/23 Sharmila Davis APRN, CLAM DREDGE BOAT CAPTAIN-C [address] [facility] [address] [place] [address] NURSE PRACTITIONER 01/04/17 04/03/24 Linda Block MD [address] [facility] [address] [address] [place] [employer] Department Manager CLINICAL CARDIAC ELECTROPHYSIOLOGY 02/08/17 04/12/23 Jeff Grace MD [address] [facility] [address] [phone] Consulting Physician INTERNAL MEDICINE 02/20/19 3 documented as of this encounter
--- OUTSIDE RECORDS SUMMARY | 2024-09-03 19:18 | XMS_ITS | Encounter Summary ---
Author Organization [facility] Address [address] [place] [address]. [place] [address] [place] [address] Care Team Providers Care Locomotive Repairer Diesel Name Role Phone Piyush Pandey MD Unavailable UnavailMegan Rodriguez MD Primary Care Provider [phone] Sharmila Davis APRN, INDUSTRIAL ENGINEERING INTERN-C Unavailable Linda Block MD Unavailable [phone] Encounter Details Date Type Department Care Team (Late st Contact Info) Description 06/04/[address] [facility] [address] [place] [address] Matias Mca MD [address] [place] [address] Social History Tobacco Use Types Packs/Day Years [...] Contact Info) Description 09/25/2024 2:00 PM SENIOR PRINCIPAL SOFTWARE ENGINEER Appointment [facility] [address] [place] [address] Zayra Powell FNP [address] [place] [address] 10/16/2024 3:30 PM SENIOR PRINCIPAL SOFTWARE ENGINEER Office Visit [facility] [place] [address] Brit Gonzáles MD [address] [place] [address] documented as of this encounter Visit Diagnoses Diagnosis Cough documented in this encounter Care Teams Locomotive Repairer Diesel Relationship Specialty Start Date End Date Megan Infante MD [address] [place] [address] PCP - General FAMILY PRACTICE 04/06/16 Piyush Pandey MD [place] Medical Staff Coordinator CARDIOVASCULAR DISEASE 04/06/16 12/28/23 Sharmila Davis, PARKING LOT MANAGER, INDUSTRIAL ENGINEERING INTERN-C [address] [facility] [address] [place] [phone] NURSE PRACTITIONER 01/04/17 04/03/24 Linda Block MD [address] [facility] [address] [place] [phone] [place] Medical Staff Coordinator CLINICAL CARDIAC ELECTROPHYSIOLOGY 02/08/17 04/12/23 documented as of this encounter
--- OUTSIDE RECORDS SUMMARY | 2024-09-03 19:18 | XMS_ITS | Encounter Summary ---
Author Organization [facility] Address [address] [place] [address]. [place] [address] [place] [address] Care Team Providers Care File System Installer Name Role Phone Piyush Pandey MD Unavailable UnavailMegan Rodriguez MD Primary Care Provider [phone] Sharmila Davis APRN, VOICER-C Unavailable Linda Block MD Unavailable [phone] Encounter Details Date Type Department Care Team (Late st Contact Info) Description 09/20/2015 Abstract [facility] [address] [place], [place] [phone] Hector Fishman MD Social History Tobacco Use Types Packs/Day [...] st Contact Info) Description 09/25/2024 2:00 PM CATERING CHEF Appointment [facility] [address] [place] [address] Zayra Powell, ALTERNATIVE ENERGY TECHNICIAN [address] [place] [address] 10/16/2024 3:30 PM CATERING CHEF Office Visit [facility] [address] [place] [address] Brit Gonzáles MD [address] [place] [address] documented as of this encounter Visit Diagnoses Diagnosis Heart failure ([facility]) Heart failure, unspecified documented in this encounter Care Teams File System Installer Relationship Specialty Start Date End Date Megan Infante MD [address] [place] [address] PCP - General FAMILY PRACTICE 04/06/16 Piyush Pandey MD [place] [employer] Supervisor CARDIOVASCULAR DISEASE 04/06/16 12/28/23 Sharmila Davis, WATCH DIAL MAKER, VOICER-C [address] [facility] [address] [place] [address] NURSE PRACTITIONER 01/04/17 04/03/24 Linda Block MD [address] [facility] [address] [place] [address] [place] [employer] Supervisor CLINICAL CARDIAC ELECTROPHYSIOLOGY 02/08/17 04/12/23 documented as of this encounter
--- OUTSIDE RECORDS SUMMARY | 2024-09-03 19:18 | XMS_ITS | Encounter Summary ---
Author Organization [facility] Address [facility]6 [facility] [place] [address] [place] [address] Care Team Providers Care Compliance Coordinator Name Role Phone Piyush Pandey MD Unavailable UnavailMegan Rodriguez MD Primary Care Provider [phone] hSarmila Davis APRN, AIR FORCE SENIOR OFFICER-C Unavailable Linda Block MD Unavailable [phone] Encounter Details Date Type Department Care Team (Latest Contact Info) Description 05/28/2014 Abstract [facility] Shubham Callahan MD [address] [place] [address] Social History Tobacco Use Types Packs/Day Years [...] Contact Info) Description 09/25/2024 2:00 PM ACTUARIAL ASSOCIATE Appointment [facility] [address] [place] [address] Zayra Powell FNP [address] [place] [address] 10/16/2024 3:30 PM ACTUARIAL ASSOCIATE Office Visit [facility] [address] [place] [address] Brit Gonzáles MD [address] [place] [address] documented as of this encounter Visit Diagnoses Not on filedocumented in this encounter Care Teams Compliance Coordinator Relationship Specialty Start Date End Date Megan Infante MD [address] [facility] [place] [address] PCP - General FAMILY PRACTICE 04/06/16 Piyush Pandey MD [place] Spray Machine Loader CARDIOVASCULAR DISEASE 04/06/16 12/28/23 Sharmila Davis APRN, AIR FORCE SENIOR OFFICER-C [address] [facility] [address] [place] [address] NURSE PRACTITIONER 01/04/17 04/03/24 Linda Block MD [address] [facility] [address] [phone] [place] Spray Machine Loader CLINICAL CARDIAC ELECTROPHYSIOLOGY 02/08/17 04/12/23 documented as of this encounter
--- OUTSIDE RECORDS SUMMARY | 2024-09-03 19:18 | XMS_ITS | Encounter Summary ---
Author Organization [facility] Address [address] [place] [address]. [place] [address] [place] [address] Care Team Providers Care Girl Friday Name Role Phone Unavailable Primary Care Provider Unavailabl e Encounter Details Date Type Department Care Team (Late st Contact Info) Description 09/20/2015 Scan [facility] [address] [place] [address] Eun Tovar MD Social History [...] Contact Info) Description 09/25/2024 2:00 PM SUPERVISOR SOLDER MAKING Appointment [facility] [address] [place] [address] Zayra Powell, FUR STORAGE CLERK [address] [place] [address] 10/16/2024 3:30 PM SUPERVISOR SOLDER MAKING Office Visit [facility] [address] [address] Brit Gonzáles MD [address] [place] [address] documented as of this encounter Visit Diagnoses Not on filedocumented in this encounter
--- OUTSIDE RECORDS SUMMARY | 2024-09-03 19:18 | XMS_ITS | Encounter Summary ---
Author Organization [facility] Address [facility]6 [place] [address] [place] [address] Care Team Providers Care Final Inspector And Tester Name Role Phone Piyush Pandey MD Unavailable Unavailabl e Megan Infante MD Primary Care Provider [phone] Sharmila Davis APRN, TRIM MACHINE OPERATOR-C Unavailable [phone] Linda Block MD Unavailable [phone] Encounter Details Date Type Department Care Team (Late st Contact Info) Description 08/08/2015 Abstract [facility] Cardiology - [place] [address] [place] [address] Linda Block MD [address] [facility] [address] [place] [address] Social History Tobacco Use Types Packs/Day Years [...] st Contact Info) Description 09/25/2024 2:00 PM WINDSHIELD INSTALLER Appointment [facility] [address] [place] [address] Zayra Powell, PLASTIC OUTFITTER [address] [place] [address] 10/16/2024 3:30 PM WINDSHIELD INSTALLER Office [facility] [address] [facility] [place] [address] Brit Gonzáles MD [address] [place] [address] documented as of this encounter Visit Diagnoses Diagnosis Paroxysmal atrial fibrillation ([facility]/HCC [facility]/HCC) Atrial fibrillation documented in this encounter Care Teams Final Inspector And Tester Relationship Specialty Start Date End Date Megan Infante MD [address] [place] [address] PCP - General FAMILY PRACTICE 04/06/16 Piyush Pandey MD [place] Excavation Laborer CARDIOVASCULAR DISEASE 04/06/16 12/28/23 Sharmila Davis APRN, TRIM MACHINE OPERATOR-C [address] [facility] [address] [place] [address] NURSE PRACTITIONER 01/04/17 04/03/24 Linda Block MD [address] [facility] [address] [place] [address] [place] Ex[employer]ation Laborer CLINICAL CARDIAC ELECTROPHYSIOLOGY 02/08/17 04/12/23 documented as of this encounter
--- OUTSIDE RECORDS SUMMARY | 2024-09-03 19:18 | XMS_ITS | Encounter Summary ---
Author Organization [facility] Address [address] [place] [address]. [place] [address] [place] [address] Care Team Providers Care Morgue Technician Name Role Phone Unavailable Primary Care Provider Unavailabl e Encounter Details Date Type Department Care Team (Late st Contact Info) Description 06/21/2015 Abstract [facility] [address] [place] [address] Eun Tovar MD Social History [...] Contact Info) Description 09/25/2024 2:00 PM SALES RECRUITMENT SPECIALIST Appointment [facility] [address] [place] [address] Zayra Powell, SUBPOENA SERVER [address] [place] [address] 10/16/2024 3:30 PM SALES RECRUITMENT SPECIALIST Office Visit [facility] [address] [phone] Brit Gonzáles MD [address] [place] [address] documented as of this encounter Visit Diagnoses Not on filedocumented in this encounter
--- OUTSIDE RECORDS SUMMARY | 2024-09-03 19:18 | XMS_ITS | Encounter Summary ---
Author Organization [facility] Address [address] [place] [address]. [place] [address] [place] [address] Care Team Providers Care Chemical Equipment Sales Engineer Name Role Phone Unavailable Primary Care Provider Unavailabl e Encounter Details Date Type Department Care Team (Late st Contact Info) Description 08/08/2015 Abstract [facility] [address] [place] [address] Eun Landry MD Social History [...] Contact Info) Description 09/25/2024 2:00 PM CERTIFIED ADAPTED PHYSICAL EDUCATOR Appointment [facility] [address] [place] [address] Zayra Powell, HEALTH DIRECTOR [address] [place] [address] 10/16/2024 3:30 PM CERTIFIED ADAPTED PHYSICAL EDUCATOR Office Visit [facility] [address] [phone] Brit Gonzáles MD [address] [place] [address] documented as of this encounter Procedures Procedure Name Priority Date/Time Associated Diagnosis Comments EXTERNAL EJECTION FRACTION Routine 08/08/2015 12:00 AM CERTIFIED ADAPTED PHYSICAL EDUCATOR documented in this encounter Results * EXTERNAL EJECTION FRACTION (08/08/2015 12:00 AM CERTIFIED ADAPTED PHYSICAL EDUCATOR) EJECTION FRACTION 40 HS HS LAB ORDERS INTERFACE Comment: 1. ??The left atrial size is severely enlarged. Left atrial appendageshows no evidence of thrombus, however ??a significant amount of spontaneous echo contrast is noted. 2. ??LV size is normal with mild concentric hypertrophy and moderatelydepressed global systolic function. LVEF 40%. Moderate globalhypokinesis. 3. ??RV size is normal with normal systolic function. 4. ??Aortic valve bioprosthesis with normal function. Mitralregurgitation, mild. 5. ??The agitated saline injection showed no clear evidence ofshunting into the left atrium, consistent with no patent foramenovale. Anatomical Region Laterality Modality Other 08/08/2015 08/08/2015 Narrative 08/08/2015 12:00 AM CERTIFIED ADAPTED PHYSICAL EDUCATOR NEMO, us Generic Conversion Md LANDRY OTHER Final R esult documented in this encounter Visit Diagnoses Not on filedocumented in this encounter
--- OUTSIDE RECORDS SUMMARY | 2024-09-03 19:18 | XMS_ITS | Encounter Summary ---
Author Organization [facility] Address [facility]6 [facility] [place] [address] [place] [address] Care Team Providers Care Teacher Associate Name Role Phone Piyush Pandey MD Unavailable UnavailMegan Rodriguez MD Primary Care Provider [phone] Sharmila Davis APRN, STAMPING MACHINE OPERATOR-C Unavailable Linda Block MD Unavailable [phone] Encounter Details Date Type Department Care Team (Late st Contact Info) Description 02/19/[address] [facility] [address] [place] [address] Shubham Callahan MD [address] [place] [address] Social History Tobacco Use Types Packs/Day Years [...] st Contact Info) Description 09/25/2024 2:00 PM MOLDED GOODS CONTROLS OPERATOR Appointment [facility] [address] [place] [address] Zayra Powell FNP [address] [place] [address] 10/16/2024 3:30 PM MOLDED GOODS CONTROLS OPERATOR Office Visit [facility] [address] [place] [phone] Brit Gonzáles MD [address] [place] [address] documented as of this encounter Visit Diagnoses Diagnosis Nonspecific (abnormal) findings on radiological and other examination of lung field documented in this encounter Care Teams Teacher Associate Relationship Specialty Start Date End Date Megan Infante MD [address] [place] [phone] PCP - General FAMILY PRACTICE 04/06/16 Piyush Pandey MD [employer] [employer] Laborer CARDIOVASCULAR DISEASE 04/06/16 12/28/23 Sharmila Davis, COLLECTOR OF INTERNAL REVENUE, STAMPING MACHINE OPERATOR-C 619 [facility] [address] [place] [phone] NURSE PRACTITIONER 01/04/17 04/03/24 Linda Block MD 619 [facility] [address] [place] [address] [employer] Laborer CLINICAL CARDIAC ELECTROPHYSIOLOGY 02/08/17 04/12/23 documented as of this encounter
--- OUTSIDE RECORDS SUMMARY | 2024-09-03 19:18 | XMS_ITS | Encounter Summary ---
Author Organization [facility] Address [address] [place] [address]. [place] [address] [place] [address] Care Team Providers Care Diagnostic Medical Sonographer Name Role Phone Unavailable Primary Care Provider Unavailabl e Encounter Details Date Type Department Care Team (Late st Contact Info) Description 10/02/2015 Scan [facility] [address] [place] [address] Eun Tovar MD Social History [...] st Contact Info) Description 09/25/2024 2:00 PM ED SPECIAL EDUCATION TEACHER Appointment [facility] [address] [place] [address] Zayra Powell, SUCTION PLATE ROLLER HAND [address] [place] [address] 10/16/2024 3:30 PM ED SPECIAL EDUCATION TEACHER Office Visit [facility] [place] [address] [phone] Brit Gonzáles MD [address] [place] [address] documented as of this encounter Visit Diagnoses Not on filedocumented in this encounter
--- OUTSIDE RECORDS SUMMARY | 2024-09-03 19:18 | XMS_ITS | Encounter Summary ---
Author Organization [facility] Address [address] [place] [address]. [place] [address] [place] [address] Care Team Providers Care Lard Mixer Name Role Phone Unavailable Primary Care Provider Unavailabl e Encounter Details Date Type Department Care Team (Late st Contact Info) Description 07/05/2014 Scan [facility] [address] [place] [address] Eun Tovar MD Social History [...] st Contact Info) Description 09/25/2024 2:00 PM SCANNING TECH Appointment [facility] [address] [place] [address] Zayra Powell, CLINICAL DATA RESEARCH [address] [place] [address] 10/16/2024 3:30 PM SCANNING TECH Office Visit [facility] [address] [phone] Brit Gonzáles MD [address] [place] [address] documented as of this encounter Visit Diagnoses Not on filedocumented in this encounter
--- OUTSIDE RECORDS SUMMARY | 2024-09-03 19:18 | XMS_ITS | Encounter Summary ---
Author Organization [facility] Address [address] [place] [address]. [place] [address] [place] [address] Care Team Providers Care Shading Painter Name Role Phone Unavailable Primary Care Provider Unavailabl e Encounter Details Date Type Department Care Team (Late st Contact Info) Description 10/21/2015 Scan [facility] [address] [place] [address] Eun Tovar MD Social History [...] Contact Info) Description 09/25/2024 2:00 PM FLOOR RENOVATOR Appointment [facility] [address] [place] [address] Zayra Powell, INSPECTOR WELDED PARTS [address] [place] [address] 10/16/2024 3:30 PM FLOOR RENOVATOR Office Visit [facility] [address] [phone] Brit Gonzáles MD [address] [place] [address] documented as of this encounter Visit Diagnoses Not on filedocumented in this encounter
--- OUTSIDE RECORDS SUMMARY | 2024-09-03 19:18 | XMS_ITS | Encounter Summary ---
Author Organization [facility] Address [facility] [place] [address] [place] [address] Care Team Providers Care Kitchen Mechanic Name Role Phone Piyush Pandey MD Unavailable Unavailabl e Megan Infante MD Primary Care Provider [phone] Sharmila Davis APRN, CERTIFIED FAMILY MEDIATOR-C Unavailable [phone] Linda Block MD Unavailable [phone] Encounter Details Date Type Department Care Team (Late st Contact Info) Description 05/22/[address] [facility] [address] [place] [address] Paul Conklin MD [address] [place], [place] [address] Social History Tobacco Use Types Packs/Day Years [...] Contact Info) Description 09/25/2024 2:00 PM MANAGER BUSINESS OPERATIONS Appointment [facility] [address] [place] [address] Zayra Powell FNP [address] [place] [address] 10/16/2024 3:30 PM MANAGER BUSINESS OPERATIONS [facility] [address] [place] [address] [place] [phone] Brit Gonzáles MD [address] [place] [address] documented as of this encounter Procedures Procedure Name Priority Date/Time Associated Diagnosis Comments ECG 12-LEAD Routine 05/22/2014 12:26 PM CDT documented in this encounter Results * ECG 12 lead (05/22/2014 12:26 PM CDT) 05/22/2014 12:[address] [facility] - 05/23/2014 8:55 AM CDT ? [facility] ? [address] [place], [place] ??[address] ? Test Date: ?2014-05-22 Pat Name: ? OBIE SIMS ?Department: ?? 1 ? Room: ? Gender: ? M ?Paper Sealer: ?? sb : ?1955 ? Requested By: PAUL CONKLIN Order Number: [id number] ? Reading : ?? Shaji Aguilera ? Measurements Intervals ?[place] ? Rate: ? 54 ? P: ?5 MI: ? 199 ?QRS: ?-10 QRSD: ? 125 ?T: ?134 QT: ? 469 ? QTc: ?447 ? Interpretive Statements SINUS BRADYCARDIA LEFT VENTRICULAR HYPERTROPHY AND ST-T CHANGE Procedure Note Eun Landry MD - 04/19/2019 [facility] [address] [place] [address] Test Date: 2014-05-22 Pat Name: OBIE SIMS Department: 1 Room: Gender: M Paper Sealer: sb : 1955 Requested By: PAUL CONKLIN Order Number: [id number] Reading MD: Shaji Aguilera Measurements Intervals [place] Rate: 54 P: 5 MI: 199 QRS: -10 QRSD: 125 T: 134 QT: 469 QTc: 447 Interpretive Statements SINUS BRADYCARDIA LEFT VENTRICULAR HYPERTROPHY AND ST-T CHANGE us Generic Conversion Md LANDRY ECG ORDERABLES Final R esult [facility] documented in this encounter Visit Diagnoses Diagnosis Other specified pre-operative examination documented in this encounter Care Teams Kitchen Mechanic Relationship Specialty Start Date End Date Megan Infante MD [address] [facility] [place] [address] PCP - General FAMILY PRACTICE 04/06/16 Piyush Pandey MD [employer] Associate CARDIOVASCULAR DISEASE 04/06/16 12/28/23 Sharmila Davis APRN, CERTIFIED FAMILY MEDIATOR-C [address] [facility] [address] [place] [phone] NURSE PRACTITIONER 01/04/17 04/03/24 Linda Block MD [address] [facility] [address] [place] [phone] [employer] Associate CLINICAL CARDIAC ELECTROPHYSIOLOGY 02/08/17 04/12/23 documented as of this encounter
--- OUTSIDE RECORDS SUMMARY | 2024-09-03 19:18 | XMS_ITS | Encounter Summary ---
Author Organization [facility] Address [address] [place] [address]. [place] [address] [place] [address] Care Team Providers Care Department Clerk Name Role Phone Unavailable Primary Care Provider Unavailabl e Encounter Details Date Type Department Care Team (Late st Contact Info) Description 07/11/2015 Abstract [facility] AT [address] [address] Eun Tovar MD Social History Tobacco Use [...] st Contact Info) Description 09/25/2024 2:00 PM CABLEWAY OPERATOR Appointment [facility] [address] [place] [address] Zayra Powell, PHYSICIAN RECRUITER [address] [place] [address] 10/16/2024 3:30 PM CABLEWAY OPERATOR Office Visit [facility] [address] [phone] Brit Gonzáles MD [address] [place] [address] documented as of this encounter Visit Diagnoses Not on filedocumented in this encounter
--- OUTSIDE RECORDS SUMMARY | 2024-09-03 19:18 | XMS_ITS | Encounter Summary ---
Author Organization [facility] Address [address] [place] [address]. [place] [address] [place] [address] Care Team Providers Care Granite Setter Name Role Phone Unavailable Primary Care Provider Unavailabl e Encounter Details Date Type Department Care Team (Late st Contact Info) Description 07/05/2014 Abstract [facility] AT [address] [address] Eun Tovar MD Social History [...] Contact Info) Description 09/25/2024 2:00 PM MEDICAL BILLER CODER Appointment [facility] [address] [place] [address] Zayra Powell, INSOLE BOTTOM FILLER [address] [place] [address] 10/16/2024 3:30 PM MEDICAL BILLER CODER Office Visit [facility] [address] [phone] Brit Gonzáles MD [address] [place] [address] documented as of this encounter Visit Diagnoses Not on filedocumented in this encounter
--- OUTSIDE RECORDS SUMMARY | 2024-09-03 19:18 | XMS_ITS | Encounter Summary ---
Author Organization [facility] Address [address] [place] [address]. [place] [address] [place] [address] Care Team Providers Care Production Control Planner Name Role Phone Unavailable Primary Care Provider Unavailabl e Encounter Details Date Type Department Care Team (Late st Contact Info) Description 11/05/2014 Scan [facility] [address] [place] [address] Eun Tovar MD Social History [...] st Contact Info) Description 09/25/2024 2:00 PM BARISTA Appointment [facility] [address] [place] [address] Zayra Powell, RADIUS CORNER MACHINE OPERATOR [address] [place] [address] 10/16/2024 3:30 PM BARISTA Office Visit [facility] [address] [phone] Brit Gonzáles MD [address] [place] [address] documented as of this encounter Visit Diagnoses Not on filedocumented in this encounter
--- OUTSIDE RECORDS SUMMARY | 2024-09-03 19:18 | XMS_ITS | Encounter Summary ---
Author Organization [facility] Address [facility] [place] [address] [place] [address] Care Team Providers Care Vp Global Name Role Phone Piyush Pandey MD Unavailable Unavailabl e Megan Infante MD Primary Care Provider [phone] Sharmila Davis APRN, CONCRETE TESTER-C Unavailable Linda Block MD Unavailable [phone] Encounter Details Date Type Department Care Team (Late Contact Info) Description 06/25/2014 Abstract [facility] [address] [place], [place] [address] Paul Conklin MD [address] [place], [place] [address] Social History Tobacco Use Types Packs/Day Years [...] (Late Contact Info) Description 09/25/2024 2:00 PM FARM BOSS Appointment [facility] [address] [place] [address] Zayra Powell, DIGITAL ACCOUNT EXECUTIVE [address] [place] [address] 10/16/2024 3:30 PM FARM BOSS Office [facility] [address] [facility] [place] [phone] Brit Gonzáles MD [address] [place] [address] documented as of this encounter Visit Diagnoses Diagnosis Pulmonary congestion and hypostasis (HHS/HCC) Pulmonary congestion and hypostasis documented in this encounter Care Teams Vp Global Relationship Specialty Start Date End Date Megan Infante MD [address] [facility] [place] [address] PCP - General FAMILY PRACTICE 04/06/16 Piyush Panedy MD [place] [employer] Shop Supervisor CARDIOVASCULAR DISEASE 04/06/16 12/28/23 Sharmila Davis APRN, CONCRETE TESTER-C [address] [facility] [address] [place] [address] NURSE PRACTITIONER 01/04/17 04/03/24 Linda Block MD [address] [facility] [address] [place] [address] [place] Shop Supervisor CLINICAL CARDIAC ELECTROPHYSIOLOGY 02/08/17 04/12/23 documented as of this encounter
--- OUTSIDE RECORDS SUMMARY | 2024-09-03 19:18 | XMS_ITS | Encounter Summary ---
Author Organization [facility] Address [address] [place] [address]. [place] [address] [place] [address] Care Team Providers Care Per Diem Nurse Name Role Phone Unavailable Primary Care Provider Unavailabl e Encounter Details Date Type Department Care Team (Late st Contact Info) Description 08/09/2015 Abstract [facility] [address] [place] [address] Eun Landry MD Social History [...] st Contact Info) Description 09/25/2024 2:00 PM DINING ROOM SERVER Appointment [facility] [address] [place] [address] Zayra Powell, VIDEO SPECIALIST [address] [place] [address] 10/16/2024 3:30 PM DINING ROOM SERVER Office Visit [facility] [address] [phone] Brit Gonzáles MD [address] [place] [address] documented as of this encounter Procedures Procedure Name Priority Date/Time Associated Diagnosis Comments ECG 12-LEAD Routine 08/09/2015 6:58 AM DINING ROOM SERVER documented in this encounter Results * ECG 12 lead (08/09/2015 6:58 AM DINING ROOM SERVER) 08/09/2015 6:58 AM DINING ROOM SERVER Narrative [facility] - 08/09/2015 8:50 AM DINING ROOM SERVER ? [facility] ? [address] [place], [place] ??[address] ? Test Date: ?2015-08-09 Pat Name: ? OBIE SIMS ?Department: ?? 1 ? Room: ? 0514A Gender: ? M ?District Director: ?? sg : ?1955 ? Requested By: MARLEE VEGA Order Number: [id number] ? Reading MD: ?? Nico Phelps ? Measurements Intervals ?[place] ? Rate: ? 84 ? P: ?52 UT: ? 266 ?QRS: ?-8 QRSD: ? 123 ?T: ?149 QT: ? 386 ? QTc: ?458 ? Interpretive Statements SINUS RHYTHM WITH FIRST DEGREE AV BLOCK Incomplete Left Bundle Branch Block ST DEVIATION AND MODERATE T-WAVE ABNORMALITY, CONSIDER LATERAL ISCHEMIA NG ROOM SERVER Procedure Note , Generic Conversion, - 04/18/2019 [place] [address] [place] [address] Test Date: 2015-08-09 Pat Name: OBIE SIMS Department: 1 Room: [facility] Gender: M District Director: : 1955 Requested By: MARLEE VEGA Order Number: [id number] Reading : Nico Phelps Measurements Intervals [place] Rate: 84 P: 52 UT: 266 QRS: -8 QRSD: 123 T: 149 QT: 386 QTc: 458 Interpretive Statements SINUS RHYTHM WITH FIRST DEGREE AV BLOCK Incomplete Left Bundle Branch Block ST DEVIATION AND MODERATE T-WAVE ABNORMALITY, CONSIDER LATERAL ISCHEMIA NG ROOM SERVER us Generic Conversion Md LANDRY ECG ORDERABLES Final R esult [facility] documented in this encounter Visit Diagnoses Not on filedocumented in this encounter
--- OUTSIDE RECORDS SUMMARY | 2024-09-03 19:18 | XMS_ITS | Encounter Summary ---
Author Organization [facility] Address [facility] [place] [address] [place] [address] Care Team Providers Care Leasing Agent Name Role Phone Piyush Pandey MD Unavailable UnavailMegan Rodriguez MD Primary Care Provider [phone] Sharmila Davis APRN, PIGMENT PUSHER-C Unavailable Marlee Vega MD Unavailable [phone] Encounter Details Date Type Department Care Team (Latest Contact Info) Description 08/08/2015 Abstract [facility] Social History Tobacco Use Types [...] Contact Info) Description 09/25/2024 2:00 PM REHABILITATION PROGRAM MANAGER Appointment [facility] [address] [place] [address] Zayra Powell, PRODUCTION WEIGHER [address] [place] [address] 10/16/2024 3:30 PM REHABILITATION PROGRAM MANAGER Office Visit [facility] [address] [place] [address] Brit Gonzáles MD [address] [place], [place] [phone] documented as of this encounter Procedures Procedure Name Priority Date/Time Associated Diagnosis Comments ECG 12-LEAD Routine 08/08/2015 2:21 PM REHABILITATION PROGRAM MANAGER documented in this encounter Results * ECG 12 lead (08/08/2015 2:21 PM REHABILITATION PROGRAM MANAGER) 08/08/2015 2:21 PM REHABILITATION PROGRAM MANAGER Narrative [facility] - 08/08/2015 3:46 PM REHABILITATION PROGRAM MANAGER ? [facility] ? [address] [place], [place] ??[address] ? Test Date: ?2015-08-08 Pat Name: ? OBIE SIMS ?Department: ?? 1 ? Room: ? 0514 Gender: ? M ?Floating Operator: ?? hm : ?1955 ? Requested By: MARLEE VEGA Order Number: [id number] ? Reading MD: ?? Nico Phelps ? Measurements Intervals ?[place] ? Rate: ? 104 ?P: ?37 WV: ? 140 ?QRS: ?-11 QRSD: ? 126 ?T: ?143 QT: ? 356 ? QTc: ?469 ? Interpretive Statements SINUS TACHYCARDIA MODERATE INTRAVENTRICULAR CONDUCTION DELAY ST DEVIATION AND MODERATE T-WAVE ABNORMALITY, CONSIDER LATERAL ISCHEMIA BILITATION PROGRAM MANAGER Procedure Note Eun Landry MD - 04/18/2019 [place] [address] [place] [address] Test Date: 2015-08-08 Pat Name: OBIE SIMS Department: 1 Room: [facility] Gender: M Floating Operator: : 1955 Requested By: MARLEE VEGA Order Number: [id number] Reading : Nico Phelps Measurements Intervals [place] Rate: 104 P: 37 WV: 140 QRS: -11 QRSD: 126 T: 143 QT: 356 QTc: 469 Interpretive Statements SINUS TACHYCARDIA MODERATE INTRAVENTRICULAR CONDUCTION DELAY ST DEVIATION AND MODERATE T-WAVE ABNORMALITY, CONSIDER LATERAL ISCHEMIA BILITATION PROGRAM MANAGER us Generic Conversion Md LANDRY ECG ORDERABLES Final R esult [facility] documented in this encounter Visit Diagnoses Not on filedocumented in this encounter Care Teams Leasing Agent Relationship Specialty Start Date End Date Megan Infante MD [address] [facility] [place] [address] PCP - General FAMILY PRACTICE 04/06/16 Piyush Pandey MD [place] Entry Level Sales Consultant CARDIOVASCULAR DISEASE 04/06/16 12/28/23 Sharmila Davis APRN, PIGMENT PUSHER-C [address] [facility] [address] [place] [phone] NURSE PRACTITIONER 01/04/17 04/03/24 Marlee Vega MD [address] [place] [facility] [address] [place] [phone] [place] Entry Level Sales Consultant CLINICAL CARDIAC ELECTROPHYSIOLOGY 02/08/17 04/12/23 documented as of this encounter
--- OUTSIDE RECORDS SUMMARY | 2024-09-03 19:18 | XMS_ITS | Encounter Summary ---
Author Organization [facility] Address [facility] [place] [address] [place] [address] Care Team Providers Care Grapple Crew Leader Name Role Phone Piyush Pandey MD Unavailable UnavailMegan Rodriguez MD Primary Care Provider [phone] Sharmila Davis APRN, BAIT PACKER-C Unavailable Linda Block MD Unavailable [phone] Encounter Details Date Type Department Care Team (Latest Contact Info) Description 03/26/2014 Abstract [facility] Shubham Callahan MD [address] [place] [address] Social History Tobacco Use Types Packs/Day Years [...] Contact Info) Description 09/25/2024 2:00 PM WEB MACHINE TENDER Appointment [facility] [address] [place] [address] Zayra Powell FNP [address] [place] [address] 10/16/2024 3:30 PM WEB MACHINE TENDER Office Visit [facility] [address] [place] [address] Brit Gonzáles MD [address] [place] [address] documented as of this encounter Visit Diagnoses Not on filedocumented in this encounter Care Teams Grapple Crew Leader Relationship Specialty Start Date End Date Megan Infante MD [address] [facility] [place] [address] PCP - General FAMILY PRACTICE 04/06/16 Piyush Pandey MD [place] Cell Repairer CARDIOVASCULAR DISEASE 04/06/16 12/28/23 Sharmila Davis APRN, BAIT PACKER-C [address] [facility] [address] [place] [address] NURSE PRACTITIONER 01/04/17 04/03/24 Linda Block MD [address] [facility] [address] [phone] [place] Cell Repairer CLINICAL CARDIAC ELECTROPHYSIOLOGY 02/08/17 04/12/23 documented as of this encounter
--- OUTSIDE RECORDS SUMMARY | 2024-09-03 19:18 | XMS_ITS | Encounter Summary ---
Author Organization [facility] Address [facility] [place] [address] [place] [address] Care Team Providers Care Food Assembler Name Role Phone Piyush Pandey MD Unavailable UnavailMegan Rodriguez MD Primary Care Provider [phone] Sharmila Davis APRN, CARDIO TECH-C Unavailable [phone] Marlee Block MD Unavailable [phone] Encounter Details Date Type Department Care Team (Latest Contact Info) Description 10/01/2015 Abstract [facility] Medical Group Social History Tobacco [...] st Contact Info) Description 09/25/2024 2:00 PM GEOPHYSICAL OBSERVER Appointment [facility] [address] [place] [address] Zayra Powell, ELECTRICAL SOLDERER [address] [place] [address] 10/16/2024 3:30 PM GEOPHYSICAL OBSERVER Office Visit [facility] [address] [place] [address] Brit Gonzáles MD [address] [place], [place] [phone] documented as of this encounter Procedures Procedure Name Priority Date/Time Associated Diagnosis Comments ECG 12-LEAD Routine 10/01/2015 8:39 AM GEOPHYSICAL OBSERVER ECG 12-LEAD Routine 10/01/2015 6:55 AM GEOPHYSICAL OBSERVER documented in this encounter Results * ECG 12 lead (10/01/2015 8:39 AM GEOPHYSICAL OBSERVER) 10/01/2015 8:39 AM GEOPHYSICAL OBSERVER Narrative [facility] - 10/01/2015 10:00 AM GEOPHYSICAL OBSERVER ? [facility] ? [address] [place] [address], [place] ??[address] ? Test Date: ?2015-10-01 Pat Name: ? OBIE SIMS ?Department: ?? 1 ? Room: ? CRU0 Gender: ? M ?Box Sealing Machine Feeder: ?? gs ??kw : ?1955 ? Requested By: MARLEE BLOCK Order Number: [id number] ? Reading : ?? Martin Perry ? Measurements Intervals ?[place] ? Rate: ? 89 ? P: ? CO: ? 0 ?QRS: ?-17 QRSD: ? 133 ?T: ?137 QT: ? 410 ? QTc: ?499 ? Interpretive Statements SINUS RHYTHM WITH FIRST DEGREE A-V BLOCK INCOMPLETE LBBB LATERAL ST AND T WAVE ABNORMALITY, CONSIDER ISCHEMIA HYSICAL OBSERVER Procedure Note Eun Landry MD - 04/18/2019 [place] [address] [place] [address] Test Date: 2015-10-01 Pat Name: OBIE SIMS Department: 1 Room: [facility] Gender: M Box Sealing Machine Feeder: gs kw : 1955 Requested By: MARLEE BLOCK Order Number: [id number] Reading MD: Martin Perry Measurements Intervals [place] Rate: 89 P: CO: 0 QRS: -17 QRSD: 133 T: 137 QT: 410 QTc: 499 Interpretive Statements SINUS RHYTHM WITH FIRST DEGREE A-V BLOCK INCOMPLETE LBBB LATERAL ST AND T WAVE ABNORMALITY, CONSIDER ISCHEMIA HYSICAL OBSERVER us Generic Conversion Md LANDRY ECG ORDERABLES Final R esult [facility] * ECG 12 lead (10/01/2015 6:55 AM GEOPHYSICAL OBSERVER) 10/01/2015 6:55 AM GEOPHYSICAL OBSERVER Narrative [facility] - 10/01/2015 8:47 PM GEOPHYSICAL OBSERVER ? [facility] ? [address] [place] [address], [place] ??[address] ? Test Date: ?2015-10-01 Pat Name: ? OBIE SIMS ?Department: ?? 1 ? Room: ? 0455 Gender: ? M ?Box Sealing Machine Feeder: ?? gs kw : ?1955 ? Requested By: MARLEE BLOCK Order Number: [id number] ? Reading : ?? Martin Perry ? Measurements Intervals ?[place] ? Rate: ? 75 ? P: ? CO: ? 0 ?QRS: ?-16 QRSD: ? 133 ?T: ?146 QT: ? 432 ? QTc: ?483 ? Interpretive Statements ATRIAL FIBRILLATION INTRAVENTRICULAR CONDUCTION DELAY POSSIBLE LEFT VENTRICULAR HYPERTROPHY HYSICAL OBSERVER Procedure Note Eun Landry MD - 04/18/2019 [place] [address] [place] [address] Test Date: 2015-10-01 Pat Name: OBIE SIMS Department: 1 Room: [facility] Gender: M Box Sealing Machine Feeder: gs kw : 1955 Requested By: MARLEE BLOCK Order Number: [id number] Reading MD: Martin Perry Measurements Intervals [place] Rate: 75 P: CO: 0 QRS: -16 QRSD: 133 T: 146 QT: 432 QTc: 483 Interpretive Statements ATRIAL FIBRILLATION INTRAVENTRICULAR CONDUCTION DELAY POSSIBLE LEFT VENTRICULAR HYPERTROPHY HYSICAL OBSERVER us Generic Conversion Md LANDRY ECG ORDERABLES Final R esult [facility] documented in this encounter Visit Diagnoses Not on filedocumented in this encounter Care Teams Food Assembler Relationship Specialty Start Date End Date Megan Infnate MD [address] [facility] [place] [address] PCP - General FAMILY PRACTICE 04/06/16 Piyush Pandey MD [place] Cl[place]ak Room Attendant CARDIOVASCULAR DISEASE 04/06/16 12/28/23 Sharmila Davis APRN, CARDIO TECH-C [address] [facility] [address] [place] [phone] NURSE PRACTITIONER 01/04/17 04/03/24 Marlee Block MD [address] [facility] [address] [place] [phone] [place]umpass Cloak Room Attendant CLINICAL CARDIAC ELECTROPHYSIOLOGY 02/08/17 04/12/23 documented as of this encounter
--- OUTSIDE RECORDS SUMMARY | 2024-09-03 19:18 | XMS_ITS | Encounter Summary ---
Author Organization [facility] Address [address] [place] [address]. [place] [address] [place] [address] Care Team Providers Care Directory Operator Name Role Phone Unavailable Primary Care Provider Unavailabl e Encounter Details Date Type Department Care Team (Late st Contact Info) Description 06/21/2015 Scan [facility] [address] [place] [address] Eun Tovar MD Social History [...] st Contact Info) Description 09/25/2024 2:00 PM MASS SPEC Appointment [facility] [address] [place] [address] Zayra Powell, RECORDING STUDIO SETUP WORKER [address] [place] [address] 10/16/2024 3:30 PM MASS SPEC Office Visit [facility] [address] [phone] Brit Gonzáles MD [address] [place] [address] documented as of this encounter Visit Diagnoses Not on filedocumented in this encounter
--- OUTSIDE RECORDS SUMMARY | 2024-09-03 19:18 | XMS_ITS | Encounter Summary ---
Author Organization [facility] Address [facility] [place] [address] [place] [address] Care Team Providers Care Packaging Line Operator Name Role Phone Piyush Pandey MD Unavailable Unavailabl e Megan Infante MD Primary Care Provider [phone] Sharmila Davis APRN, EYE SPECIALIST-C Unavailable Linda Block MD Unavailable [phone] Encounter Details Date Type Department Care Team (Late st Contact Info) Description 10/01/2015 Abstract [facility] Line Repairer Tower [address] [place] [address] Linda Block MD [address] [facility] [address] [place] [phone] Social History Tobacco Use Types Packs/Day Years [...] st Contact Info) Description 09/25/2024 2:00 PM HVAC OPERATIONS TECHNICIAN Appointment [facility] [address] [place] [address] Zayra Powell, RN INVASIVE [address] [place] [address] 10/16/2024 3:30 PM HVAC OPERATIONS TECHNICIAN [facility] [address] [facility] [place] [address] Brit Gonzáles MD [address] [place] [address] documented as of this encounter Visit Diagnoses Diagnosis Persistent atrial fibrillation ([facility]/HCC HHS/HCC) Atrial fibrillation documented in this encounter Care Teams Packaging Line Operator Relationship Specialty Start Date End Date Megan Infante MD [address] [place] [phone] PCP - General FAMILY PRACTICE 04/06/16 Piyush Pandey MD [place] Row Boss CARDIOVASCULAR DISEASE 04/06/16 12/28/23 Sharmila Davis APRN, EYE SPECIALIST-C [address] [facility] [address] [place] [address] NURSE PRACTITIONER 01/04/17 04/03/24 Linda Block MD [address] [facility] [address] [place] [address] [place] Row Boss CLINICAL CARDIAC ELECTROPHYSIOLOGY 02/08/17 04/12/23 documented as of this encounter
--- OUTSIDE RECORDS SUMMARY | 2024-09-03 19:18 | XMS_ITS | Encounter Summary ---
Author Organization [facility] Address [address] [place] [address]. [place] [address] [place] [address] Care Team Providers Care Shank Cementer Hand Name Role Phone Unavailable Primary Care Provider Unavailabl e Encounter Details Date Type Department Care Team (Late st Contact Info) Description 03/29/2014 Scan [facility] [address] [place] [address] Eun Tovar MD Social History [...] Contact Info) Description 09/25/2024 2:00 PM RN RESEARCH Appointment [facility] [address] [place] [address] Zayra Powell, SENIOR GOVERNMENT PROGRAM ANALYST [address] [place] [address] 10/16/2024 3:30 PM RN RESEARCH Office Visit [facility] [address] [address] Brit Gonzáles MD [address] [place] [address] documented as of this encounter Visit Diagnoses Not on filedocumented in this encounter
--- OUTSIDE RECORDS SUMMARY | 2024-09-03 19:18 | XMS_ITS | Encounter Summary ---
Author Organization [facility] Address [address] [place] [address]. [place] [address] [place] [address] Care Team Providers Care Blender Machine Operator Name Role Phone Unavailable Primary Care Provider Unavailabl e Encounter Details Date Type Department Care Team (Late st Contact Info) Description 09/20/2015 Abstract [facility] [address] [place] [address] Eun Tovar MD Social History [...] st Contact Info) Description 09/25/2024 2:00 PM SAWDUST MACHINE OPERATOR Appointment [facility] [address] [place] [address] Zayra Powell, SALES RECRUITER [address] [place] [address] 10/16/2024 3:30 PM SAWDUST MACHINE OPERATOR Office Visit [facility] [address] [phone] Brit Gonzáles MD [address] [place] [address] documented as of this encounter Visit Diagnoses Not on filedocumented in this encounter
--- OUTSIDE RECORDS SUMMARY | 2024-09-03 19:18 | XMS_ITS | Encounter Summary ---
Author Organization [facility] Address [facility] [place] [address] [place] [address] Care Team Providers Care Rolled [place] Lacer Name Role Phone Piyush Pandey MD Unavailable UnavailMegan Rodriguez MD Primary Care Provider [phone] Sharmila Davis APRN DAIRY CATTLE FARM WORKER-C Unavailable Linda Block MD Unavailable [phone] Encounter Details Date Type Department Care Team (Latest Contact Info) Description 03/02/2014 Abstract [facility] Medical Group Shubham Callahan MD [address] [place] [phone] Social History Tobacco Use Types Packs/Day Years Used Date Smoking Tobacco: Never Assessed Sex and Gender Information Value Date Recorded Sex Assigned at Not on file Legal Sex Male 10:01 PM CDT Gender Identity Not on file Sexual Orientation Not on file documented as of this encounter Last Filed Vital Signs Vital Sign Reading Time Taken Comments Blood Pressure 180/90 03/02/2014 11:54 AM CDT Pulse - - Temperature - - Respiratory Rate - - Oxygen Saturation - - Inhaled Oxygen Concentration - - Weight 101.6 kg (224 lb) 03/02/2014 11:54 AM CDT Height 167.6 cm (5' 6 ) 03/02/2014 11:54 AM CDT Body Mass Index 36.15 03/02/2014 11:54 AM CDT documented in this encounter Progress Notes * Shubham Callahan MD - 03/02/2014 11:45 AM CDT Referring Provider Referring Provider: Dr. Matias Pandey (purchasing manager/sales) Assessment Assessed 1. Former smoker (V15.82) (Z87.891) ?? Social smoker for less than 5 years, 30 years ago. 2. Shortness of breath (786.05) (R06.02) 3. Aortic stenosis (424.1) (I35.0) 4. Abnormal finding on pulmonary function testing (794.2) (R94.2) ?? non-specific ventilatotry defect. No clear restriction/obstruction. Reduced diffusion capacity. Plan Plan Comments: I asked the patient to follow up with Dr. Pandey. I suspect his shortness of breath is due to hisaortic stenosis. I did not give the patient a follow up in my office. He can always be referred back to me in the future if necessary. Discussion/Summary Discussion Summary: I shared my impression with the patient. I really think his shortness of breathis coming from aortic stenosis. I could not find a primary pulmonary process to explain his symptoms. Specifically, a follow up CAT scan was rather unremarkable. There was no suspicious nodules or parenchymal findings. Pulmonary function test suggests a nonspecific ventilatory defect. I wonder if this is due to his prior chest wall surgery. There was not a clear pattern of restriction/obstructionpresent. The reduced diffusing capacity is also a nonspecific finding. I wouldn't be surprised if the patient has some secondary pulmonary hypertension that might account for this. Chief Complaint Chief Complaints 1. Shortness of Breath History of Present Illness HPI: The patient returns today for follow up of shortness of breath. Since I saw him last he had a CT scan of the chest done at [facility]. There was no suspicious pulmonary nodule. There was no parenchymal lung disease. The patient was given a photocopy of the report for his records. The patient continues to complain of shortness of breath. There has been no significant change since I saw him last with respect to this. No new cough or wheezing. Review of Systems Review of Systems CIAR: Respiratory: dyspnea, but no wheezing not coughing up colored sputum Past Medical History Problems 1. History of atrial fibrillation (V12.59) (Z86.79) 2. History of cardiac disorder (V12.50) (Z86.79) 3. History of diabetes mellitus (V12.29) (Z86.39) 4. History of hypertension (V12.59) (Z86.79) Surgical History Problems 1. History of Aortic Valve Replacement ?? 1999 2. History of Hip Replacement ?? Left, 2010 Family History Mother 1. Family history of tuberculosis (V18.8) (Z83.1) Social History Problems ?? Alcohol use ?? Socially ?? Former smoker (V15.82) (Z87.891) ?? Social smoker for less than 5 years, 30 years ago. ? 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 Current Meds 1. Allopurinol 100 MG Oral Tablet; TAKE 1 TABLET DAILY; Therapy: (Recorded:14Feb2014) to Recorded 2. AmLODIPine Besylate 5 MG Oral Tablet; TAKE 1 TABLET DAILY; Therapy: (Recorded:14Feb2014) to Recorded 3. Coumadin 5 MG Oral Tablet; TAKE 1 TABLET DAILY; Therapy: (Recorded:14Feb2014) to Recorded 4. Furosemide 40 MG Oral Tablet; TAKE 1 TABLET DAILY; Therapy: (Recorded:14Feb2014) to Recorded 5. GlipiZIDE 5 MG Oral Tablet; TAKE 1 PO q AM AND 2 PO q PM; Therapy: (Recorded:14Feb2014) to Recorded 6. Hydrocodone-Acetaminophen 5-325 MG Oral Tablet; TAKE 1 TABLET EVERY 4 TO 6 HOURS NEEDED; Therapy: (Recorded:14Feb2014) to Recorded 7. Lipitor 40 MG Oral Tablet; TAKE 1 TABLET DAILY; Therapy: (Recorded:14Feb2014) to Recorded 8. Lisinopril 40 MG Oral Tablet; TAKE 1 TABLET DAILY; Therapy: (Recorded:14Feb2014) to Recorded 9. MetFORMIN HCl - 500 MG Oral Tablet; TAKE 1 TABLET DAILY; Therapy: (Recorded:14Feb2014) to Recorded 10. PROzac 20 MG Oral Capsule; TAKE 2 CAPSULES DAILY; Therapy: (Recorded:14Feb2014) to Recorded 11. Tikosyn 500 MCG Oral Capsule; TAKE 1 CAPSULE TWICE DAILY; Therapy: (Recorded:14Feb2014) to Recorded 12. Toprol XL 100 MG Oral Tablet Extended Release 24 Hour; TAKE 2 TABLETS DAILY; Therapy: (Recorded:14Feb2014) to Recorded 13. TraZODone HCl - 100 MG Oral Tablet; TAKE 1 TABLET AT BEDTIME; Therapy: (Recorded:30Gea0532) to Recorded Allergies Medication 1. No Known Drug Allergies Vitals Vital Signs [Data Includes: Current Encounter] Recorded by : Millicent Ferguson at 41Edx3965 11:54AM Systolic 180 Diastolic 90 Height 5 ft 6 in Weight 224 lb BMI Calculated 36.15 BSA Calculated 2.1 Immunizations Influenza --- Series1: May 2013 Pneumococcal --- Series1: 2012 Physical Exam Pulmonary Multi-System Exam CIAR: Constitutional: General appearance: Normal. Head and Face: Head and face: Normal. Eyes: Conjunctiva and lids: Normal. Ears, Nose, Mouth, and Throat: External inspection of ears and nose: Normal. Nasal mucosa, septum, and turbinates: Normal. Lips, teeth, and gums: Normal. Oropharynx: Normal. Neck: Neck Appearance: Normal. Cardiovascular Auscultation of heart: Normal. Examination of extremities for edema: Normal. Pulmonary [...] and remote memory: Demonstrates normal memory. Results/Data Pulmonary function test shows a nonspecific ventilatory defect. There is no definite restriction/obstruction. Diffusing capacity is reduced. Signatures Electronically signed by : Shubham Callahan M.D.; Mar 05 2014 3:09PM SOFTWARE QUALITY AUTOMATION ENGINEER (Author) documented in this encounter Plan of Treatment Upcoming Encounters Date Type Department Care Team (Late st Contact Info) Description 09/25/2024 2:00 PM SOFTWARE QUALITY AUTOMATION ENGINEER Appointment [facility] [address] [place] [address] Zayra Powell, PRODUCT DESIGN MANAGER [address] [place] [address] 10/16/2024 3:30 PM SOFTWARE QUALITY AUTOMATION ENGINEER [facility] [address] [place] [address] Brit Gonzáles MD [address] [place] [address] documented as of this encounter Visit Diagnoses Not on filedocumented in this encounter Care Teams Rolled Ham Lacer Relationship Specialty Start Date End Date Megan Infante MD [address] [place] [address] PCP - General FAMILY PRACTICE 04/06/16 Piyush Pandey MD [place] [employer] Gas Welder CARDIOVASCULAR DISEASE 04/06/16 12/28/23 Sharmila Davis, ENGINEERING INSTRUCTOR, DAIRY CATTLE FARM WORKER-C [address] [facility] [address] [place] [address] NURSE PRACTITIONER 01/04/17 04/03/24 Linda Block MD [address] [facility] [address] [place] [address] [place] [employer] Welder CLINICAL CARDIAC ELECTROPHYSIOLOGY 02/08/17 04/12/23 documented as of this encounter
--- OUTSIDE RECORDS SUMMARY | 2024-09-03 19:19 | XMS_ITS | Encounter Summary ---
Author Organization [facility] Address [facility]6 [facility] [place] [address] [place] [address] Care Team Providers Care Reverser Name Role Phone Piyush Pandey MD Unavailable UnavailMegan Rodriguez MD Primary Care Provider [phone] Sharmila Davis APRN, PHOTOGRAPHIC DOUBLE-C Unavailable Linda Block MD Unavailable [phone] Encounter Details Date Type Department Care Team (Latest Contact Info) Description 12/07/2013 Abstract [facility] Medical Group Shubham Callahan MD [address] [place] [address] Social History Tobacco Use Types Packs/Day Years [...] st Contact Info) Description 09/25/2024 2:00 PM BARK TANNER Appointment [facility] [address] [place] [address] Zayra Powell FNP [address] [place] [address] 10/16/2024 3:30 PM BARK TANNER Office Visit [facility] [address] [place] [address] Brit Gonzáles MD [address] [place] [address] documented as of this encounter Visit Diagnoses Not on filedocumented in this encounter Care Teams Reverser Relationship Specialty Start Date End Date Megan Infante MD [address] [facility] [place] [address] PCP - General FAMILY PRACTICE 04/06/16 Piyush Pandey MD [place] Vending Technician CARDIOVASCULAR DISEASE 04/06/16 12/28/23 Sharmila Davis APRN, PHOTOGRAPHIC DOUBLE-C [address] [facility] [address] [place] [address] NURSE PRACTITIONER 01/04/17 04/03/24 Linda Block MD [address] [facility] [address] [phone] [place] Vending Technician CLINICAL CARDIAC ELECTROPHYSIOLOGY 02/08/17 04/12/23 documented as of this encounter
--- OUTSIDE RECORDS SUMMARY | 2024-09-03 19:19 | XMS_ITS | Encounter Summary ---
Author Organization [facility] Address [facility]6 [facility] [place] [address] [place] [address] Care Team Providers Care Hide Dyer Name Role Phone Piyush Pandey MD Unavailable UnavailMegan Rodriguez MD Primary Care Provider [phone] Sharmila Davis APRN, EXPLOSION WELDER-C Unavailable Linda Block MD Unavailable [phone] Encounter Details Date Type Department Care Team (Latest Contact Info) Description 10/13/2013 Abstract [facility] Medical Group Shubham Callahan MD [address] [place] [address] Social History Tobacco Use Types Packs/Day Years [...] st Contact Info) Description 09/25/2024 2:00 PM INVESTIGATOR VICE Appointment [facility] [address] [place] [address] Zayra Powell FNP [address] [place] [address] 10/16/2024 3:30 PM INVESTIGATOR VICE Office Visit [facility] [address] [place] [address] Brit Gonzáles MD [address] [place] [address] documented as of this encounter Visit Diagnoses Not on filedocumented in this encounter Care Teams Hide Dyer Relationship Specialty Start Date End Date Megan Infante MD [address] [facility] [place] [address] PCP - General FAMILY PRACTICE 04/06/16 Piyush Pandey MD [place] Senior Buyer Planner CARDIOVASCULAR DISEASE 04/06/16 12/28/23 Sharmila Dvais APRN, EXPLOSION WELDER-C [address] [facility] [address] [place] [address] NURSE PRACTITIONER 01/04/17 04/03/24 Linda Block MD [address] [facility] [address] [phone] [place] Senior Buyer Planner CLINICAL CARDIAC ELECTROPHYSIOLOGY 02/08/17 04/12/23 documented as of this encounter
--- OUTSIDE RECORDS SUMMARY | 2024-09-03 19:19 | XMS_ITS | Encounter Summary ---
Author Organization [facility] Address [address] [place] [address]. [place] [address] [place] [address] Care Team Providers Care Voice Network Engineer Name Role Phone Piyush Pandey MD, Amy E MD Primary Care Provider [phone] Encounter Details Date Type Department Care Team (Late st Contact Info) Description 11/13/2011 Abstract [facility] [address] [place] [address] Eun Tovar MD Social History Tobacco [...] Contact Info) Description 09/25/2024 2:00 PM FILM OR TAPE LIBRARIAN Appointment [facility] [address] [place] [address] Zayra Powell, CERTIFIED ORTHOTIST [address] [place] [address] 10/16/2024 3:30 PM FILM OR TAPE LIBRARIAN Office Visit [facility] [address] [place] [phone] Brit Gonzáles MD [address] [place] [phone] documented as of this encounter Visit Diagnoses Not on filedocumented in this encounter Care Teams Voice Network Engineer Relationship Specialty Start Date End Date Megan Infante MD [address] [place] [address] PCP - General FAMILY PRACTICE 04/06/16 Piyush Pandey MD [place] Oven Attendant CARDIOVASCULAR DISEASE 04/06/16 12/28/23 documented as of this encounter
--- OUTSIDE RECORDS SUMMARY | 2024-09-03 19:19 | XMS_ITS | Encounter Summary ---
Author Organization [facility] Address [address] [place] [address]. [place] [address] [place] [address] Care Team Providers Care Sign Board Erector Name Role Phone Piyush Pandey MD Unavailable UnavailMegan Rodriguez MD Primary Care Provider [phone] Sharmila Davis APRN AUTOMATION TECHNOLOGIST-C Unavailable Linda Block MD Unavailable [phone] Encounter Details Date Type Department Care Team (Late st Contact Info) Description 10/04/2008 Abstract [facility] [address] [place] [address] Palomo Ponce MD [address] [place] [phone] Social History Tobacco Use Types Packs/Day Years [...] (Late Contact Info) Description 09/25/2024 2:00 PM SPANISH PROFESSOR Appointment [facility] [address] [place] [address] Zayra Powell, HOROLOGIST [address] [place] [address] 10/16/2024 3:30 PM SPANISH PROFESSOR Office Visit [facility] [address] [place] [address] Brit Gonzáles MD [address] [place] [address] documented as of this encounter Visit Diagnoses Diagnosis Pain in joint, pelvic region and thigh documented in this encounter Care Teams Sign Board Erector Relationship Specialty Start Date End Date Megan Infante MD [address] [place] [phone] PCP - General FAMILY PRACTICE 04/06/16 Piyush Pandey MD [place] [employer] Technician CARDIOVASCULAR DISEASE 04/06/16 12/28/23 Sharmila Davis, PAINTER HELPER, AUTOMATION TECHNOLOGIST-C [address] [facility] [address] [place] [phone] NURSE PRACTITIONER 01/04/17 04/03/24 Linda Block MD 619 [facility] [address] [place] [phone] [place] [employer] Technician CLINICAL CARDIAC ELECTROPHYSIOLOGY 02/08/17 04/12/23 documented as of this encounter
--- OUTSIDE RECORDS SUMMARY | 2024-09-03 19:19 | XMS_ITS | Encounter Summary ---
Author Organization [facility] Address [address] [place] [address]. [place] [address] [place] [address] Care Team Providers Care Switchbox Assembler Name Role Phone Piyush Pandey MD Unavailable UnavailMegan Rodriguez MD Primary Care Provider [phone] Sharmila Davis APRN, WRITING CENTER DIRECTOR-C Unavailable Linda Block MD Unavailable [phone] Encounter Details Date Type Department Care Team (Late st Contact Info) Description 12/09/[address] [facility] [address] [place] [address] Matias Mac MD [address] [place] [address] Social History Tobacco Use Types Packs/Day Years [...] Contact Info) Description 09/25/2024 2:00 PM RN TRANSPLANT Appointment [facility] [address] [place] [address] Zayra Powell FNP [address] [place] [address] 10/16/2024 3:30 PM RN TRANSPLANT Office Visit [facility] Gutierrez[address] [place] [address] Brit Gonzáles MD [address] [place] [address] documented as of this encounter Visit Diagnoses Not on filedocumented in this encounter Care Teams Switchbox Assembler Relationship Specialty Start Date End Date Megan Infante MD [address] [place] [address] PCP - General FAMILY PRACTICE 04/06/16 Piyush Pandey MD [employer] Assembler CARDIOVASCULAR DISEASE 04/06/16 12/28/23 Sharmila Davis, TREATING INSPECTOR, WRITING CENTER DIRECTOR-C [address] [facility] [address] [place] [phone] NURSE PRACTITIONER 01/04/17 04/03/24 Linda Block MD 619 [facility] [address] [place] [address] [employer] Assembler CLINICAL CARDIAC ELECTROPHYSIOLOGY 02/08/17 04/12/23 documented as of this encounter
--- OUTSIDE RECORDS SUMMARY | 2024-09-03 19:19 | XMS_ITS | Encounter Summary ---
Author Organization [facility] Address Critical access hospital6 [facility] [place] [address] [place] [address] Care Team Providers Care Stave Saw Operator Name Role Phone Piyush Pandey MD Unavailable UnavailMegan Rodriguez MD Primary Care Provider [phone] Sharmila Davis APRN, NUCLEAR EQUIPMENT OPERATOR-C Unavailable Linda Block MD Unavailable [phone] Encounter Details Date Type Department Care Team (Late st Contact Info) Description 04/19/[address] [facility] [address] [place] [address] Shubham Callahan MD [address] [place] [address] Social History Tobacco Use Types Packs/Day Years [...] st Contact Info) Description 09/25/2024 2:00 PM ORE GRADER Appointment [facility] [address] [place] [address] Zayra Powell FNP [address] [place] [address] 10/16/2024 3:30 PM ORE GRADER Office Visit [facility] [address] [place] [address] Brit Gonzáles MD 619 [place] [address] documented as of this encounter Visit Diagnoses Not on filedocumented in this encounter Care Teams Stave Saw Operator Relationship Specialty Start Date End Date Megan Infante MD [address] [place] [address] PCP - General FAMILY PRACTICE 04/06/16 Piyush Pandey MD [employer] Tacker CARDIOVASCULAR DISEASE 04/06/16 12/28/23 Sharmila Davis APRN, NUCLEAR EQUIPMENT OPERATOR-C [address] [facility] [address] [place] [phone] NURSE PRACTITIONER 01/04/17 04/03/24 Linda Block MD 619 [facility] [address] [place] [address] [employer] Tacker CLINICAL CARDIAC ELECTROPHYSIOLOGY 02/08/17 04/12/23 documented as of this encounter
--- OUTSIDE RECORDS SUMMARY | 2024-09-03 19:19 | XMS_ITS | Encounter Summary ---
Author Organization [facility] Address [address] [place] [address]. [place] [address] [place] [address] Care Team Providers Care Hand Presser Name Role Phone Piyush Pandey MD Unavailable UnavailMegan Rodriguez MD Primary Care Provider [phone] Sharmila Davis APRN, AUTO CRANE DRIVER-C Unavailable Linda Block MD Unavailable [phone] Encounter Details Date Type Department Care Team (Late st Contact Info) Description 09/21/[address] [facility] [address] [place] [address] Matias Mac MD [address] [place] [address] Social History Tobacco Use Types Packs/Day Years [...] st Contact Info) Description 09/25/2024 2:00 PM FLUME RIDE OPERATOR Appointment [facility] [address] [place] [address] Zayra Powell FNP [address] [place] [address] 10/16/2024 3:30 PM FLUME RIDE OPERATOR Office Visit [facility] [address] [place] [address] Brit Gonzáles MD [address]19 [place] [address] documented as of this encounter Visit Diagnoses Not on filedocumented in this encounter Care Teams Hand Presser Relationship Specialty Start Date End Date Megan Infante MD [address] [place] [address] PCP - General FAMILY PRACTICE 04/06/16 Piyush Pandey MD [place] [employer] CARDIOVASCULAR DISEASE 04/06/16 12/28/23 Sharmila Davis, INTERIOR DESIGN INSTRUCTOR, AUTO CRANE DRIVER-C 619 [facility] [address] [place] [phone] NURSE PRACTITIONER 01/04/17 04/03/24 Linda Block MD 619 [facility] [address] [place] [address] [place] [employer] CLINICAL CARDIAC ELECTROPHYSIOLOGY 02/08/17 04/12/23 documented as of this encounter
--- OUTSIDE RECORDS SUMMARY | 2024-09-03 19:19 | XMS_ITS | Encounter Summary ---
Author Organization [facility] Address [address] [place] [address]. [place] [address] [place] [address] Care Team Providers Care Donor Services Technician Name Role Phone Piyush Pandey MD Unavailable UnavailMegan Rodriguez MD Primary Care Provider [phone] Sharmila Davis APRN, SPEECH THERAPY DIRECTOR-C Unavailable Linda Block MD Unavailable [phone] Encounter Details Date Type Department Care Team (Late st Contact Info) Description 11/05/2011 Abstract [facility] [address] [place] [address] Matias Mac MD [address] [place] [address] Social History Tobacco Use Types Packs/Day Years [...] st Contact Info) Description 09/25/2024 2:00 PM RELIGION DEPARTMENT CHAIR Appointment [facility] [address] [place] [address] Zayra Powell, STORE PROMOTER [address] [place] [address] 10/16/2024 3:30 PM RELIGION DEPARTMENT CHAIR Office Visit [facility] [address]ierrez[address] [place] [address] Brit Gonzáles MD 619 [place] [address] documented as of this encounter Visit Diagnoses Diagnosis Osteoarthrosis, pelvic region and thigh Osteoarthrosis, unspecified whether generalized or localized, pelvic region and thigh documented in this encounter Care Teams Donor Services Technician Relationship Specialty Start Date End Date Megan Infante MD [address] [place] [phone] PCP - General FAMILY PRACTICE 04/06/16 Piyush Pandey MD [place] Paint Pourer CARDIOVASCULAR DISEASE 04/06/16 12/28/23 Sharmila Davis, WWE WRESTLER, SPEECH THERAPY DIRECTOR-C 619 [facility] [address] [place] [address] NURSE PRACTITIONER 01/04/17 04/03/24 Linda Block MD 619 [facility] [address] [place] [address] Sebastian Paint Pourer CLINICAL CARDIAC ELECTROPHYSIOLOGY 02/08/17 04/12/23 documented as of this encounter
--- OUTSIDE RECORDS SUMMARY | 2024-09-03 19:19 | XMS_ITS | Encounter Summary ---
Author Organization [facility] Address [address] [place] [address]. [place] [address] [place] [address] Care Team Providers Care Anvil Seating Press Operator Name Role Phone Piyush Pandey MD Unavailable UnavailMegan Rodriguez MD Primary Care Provider [phone] Sharmila Davis APRN, BAND REAMER MACHINE OPERATOR-C Unavailable [phone] Linda Block MD Unavailable [phone] Encounter Details Date Type Department Care Team (Late st Contact Info) Description 04/05/[address] [facility] [address] [place] [address] Matias Mac MD [address] [place] [address] Social History Tobacco Use Types Packs/Day Years [...] Contact Info) Description 09/25/2024 2:00 PM CARDIOVASCULAR INVASIVE SPECIALIST Appointment [facility] [address] [place] [address] Zayra Powell FNP [address] [place] [address] 10/16/2024 3:30 PM CARDIOVASCULAR INVASIVE SPECIALIST Office Visit [facility] [address] [place] [address] Brit Gonzáles MD 619 [place] [address] documented as of this encounter Visit Diagnoses Diagnosis Follow-up examination following completed treatment with high-risk medications, not elsewhere classified documented in this encounter Care Teams Anvil Seating Press Operator Relationship Specialty Start Date End Date Megan Infante MD [address] [place] [phone] PCP - General FAMILY PRACTICE 04/06/16 Piyush Pandey MD [place] Used Car Manager CARDIOVASCULAR DISEASE 04/06/16 12/28/23 Sharmila Davis APRN, BAND REAMER MACHINE OPERATOR-C 619 [facility] [address] [place] [address] NURSE PRACTITIONER 01/04/17 04/03/24 Linda Block MD 619 [facility] [address] [place] [address] [place] Used Car Manager CLINICAL CARDIAC ELECTROPHYSIOLOGY 02/08/17 04/12/23 documented as of this encounter
--- OUTSIDE RECORDS SUMMARY | 2024-09-03 19:19 | XMS_ITS | Encounter Summary ---
Author Organization [facility] Address [address] [place] [address]. [place] [address] [place] [address] Care Team Providers Care Lay Brother Name Role Phone Piyush Pandey MD Unavailable UnavailMegan Rodriguez MD Primary Care Provider [phone] Sharmila Davis APRN, STRIKE WARFARE/MISSILE SYSTEMS OFFICER-C Unavailable Linda Block MD Unavailable [phone] Encounter Details Date Type Department Care Team (Late st Contact Info) Description 02/29/[address] [facility] [address] [place] [address] Matias Mac MD [address] [place] [address] Social History Tobacco Use Types Packs/Day Years [...] Contact Info) Description 09/25/2024 2:00 PM SOLAR PHOTOVOLTAIC DESIGNER Appointment [facility] [address] [place] [address] Zayra Powell FNP [address] [place] [address] 10/16/2024 3:30 PM SOLAR PHOTOVOLTAIC DESIGNER Office Visit [facility]rez[address] [place] [address] Brit Gonzáles MD 619 [place] [address] documented as of this encounter Visit Diagnoses Diagnosis Chest pain Chest pain, unspecified documented in this encounter Care Teams Lay Brother Relationship Specialty Start Date End Date Megan Infante MD [address] [place] [phone] PCP - General FAMILY PRACTICE 04/06/16 Piyush Pandey MD [place] Customer Support Consultant CARDIOVASCULAR DISEASE 04/06/16 12/28/23 Sharmila Davis, DANNY, STRIKE WARFARE/MISSILE SYSTEMS OFFICER-C 619 [facility] [address] [place] [phone] NURSE PRACTITIONER 01/04/17 04/03/24 Linda Block MD 619 [facility] [address] [place] [address] [place] Customer Support Consultant CLINICAL CARDIAC ELECTROPHYSIOLOGY 02/08/17 04/12/23 documented as of this encounter
--- OUTSIDE RECORDS SUMMARY | 2024-09-03 19:19 | XMS_ITS | Encounter Summary ---
Author Organization [facility] Address [address] [place] [address]. [place] [address] [place] [address] Care Team Providers Care Room Service Associate Name Role Phone Unavailable Primary Care Provider Unavailabl e Encounter Details Date Type Department Care Team (Late st Contact Info) Description 12/07/2013 Abstract [facility] AT [address] [address] Eun Tovar MD Social History [...] st Contact Info) Description 09/25/2024 2:00 PM VIDEO MANAGER Appointment [facility] [address] [place] [address] Zayra Powell, PARASITOLOGY TEACHER [address] [place] [address] 10/16/2024 3:30 PM VIDEO MANAGER Office Visit [facility] [address] [phone] Brit Gonzáles MD [address] [place] [address] documented as of this encounter Visit Diagnoses Not on filedocumented in this encounter
--- OUTSIDE RECORDS SUMMARY | 2024-09-03 19:19 | XMS_ITS | Encounter Summary ---
Author Organization [facility] Address [address] [place] [address]. [place] [address] [place] [address] Care Team Providers Care Garment Parts Cutter Machine Name Role Phone Piyush Pandey MD, Amy E MD Primary Care Provider [phone] Encounter Details Date Type Department Care Team (Late st Contact Info) Description 01/05/2011 Scan [facility] AT [address] [address] Eun Tovar MD Social History Tobacco [...] st Contact Info) Description 09/25/2024 2:00 PM ER TECH Appointment [facility] [address] [place] [address] Zayra Powell, ELDERLY SITTER [address] [place] [address] 10/16/2024 3:30 PM ER TECH Office Visit [facility] [address] [place] [phone] Brit Gonzáles MD [address] [place] [address] documented as of this encounter Visit Diagnoses Not on filedocumented in this encounter Care Teams Garment Parts Cutter Machine Relationship Specialty Start Date End Date Megan Infante MD [address] [place] [address] PCP - General FAMILY PRACTICE 04/06/16 Piyush Pandey MD [place] Qa Test Analyst CARDIOVASCULAR DISEASE 04/06/16 12/28/23 documented as of this encounter
--- OUTSIDE RECORDS SUMMARY | 2024-09-03 19:19 | XMS_ITS | Encounter Summary ---
Author Organization [facility] Address [address] [place] [address]. [place] [address] [place] [address] Care Team Providers Care Admissions Counselor Name Role Phone Unavailable Primary Care Provider Unavailabl e Encounter Details Date Type Department Care Team (Late st Contact Info) Description 09/28/2013 Scan [facility] [address] [place] [address] Eun Tovar MD Social History [...] st Contact Info) Description 09/25/2024 2:00 PM TEAMSITE DEVELOPER Appointment [facility] [address] [place] [address] Zayra Powell, LUNCHROOM FOOD SERVICE SUPERVISOR [address] [place] [address] 10/16/2024 3:30 PM TEAMSITE DEVELOPER Office Visit [facility] [address] [phone] Brit Gonzáles MD 619 [place] [address] documented as of this encounter Visit Diagnoses Not on filedocumented in this encounter
--- OUTSIDE RECORDS SUMMARY | 2024-09-03 19:19 | XMS_ITS | Encounter Summary ---
Author Organization [facility] Address [address] [place] [address]. [place] [address] [place] [address] Care Team Providers Care Quarry Supervisor Dimension Stone Name Role Phone Piyush Pandey MD Unavailable UnavailMegan Rodriguez MD Primary Care Provider [phone] Sharmila Davis APRN AMBULATORY ANALYST-C Unavailable Linda Block MD Unavailable [phone] Encounter Details Date Type Department Care Team (Late st Contact Info) Description 11/05/[address] [facility] [address] [place] [address] Palomo Ponce MD [address] [place] [phone] Social History Tobacco Use Types Packs/Day Years [...] st Contact Info) Description 09/25/2024 2:00 PM FINISHED CLOTH EXAMINER Appointment [facility] [address] [place] [address] Zayra Powell FNP [address] [place] [address] 10/16/2024 3:30 PM FINISHED CLOTH EXAMINER Office Visit [facility] [address] [place] [address] Brit Gonzáles MD 619 [place] [address] documented as of this encounter Visit Diagnoses Not on filedocumented in this encounter Care Teams Quarry Supervisor Dimension Stone Relationship Specialty Start Date End Date Megan Infante MD [address] [place] [address] PCP - General FAMILY PRACTICE 04/06/16 Piyush Pandey MD [place] Modeling Instructor CARDIOVASCULAR DISEASE 04/06/16 12/28/23 Sharmila Davis APRN, AMBULATORY ANALYST-C 619 [facility] [address] [place] [phone] NURSE PRACTITIONER 01/04/17 04/03/24 Linda Block MD 619 [facility] [address] [place] [address] [place] Modeling Instructor CLINICAL CARDIAC ELECTROPHYSIOLOGY 02/08/17 04/12/23 documented as of this encounter
--- OUTSIDE RECORDS SUMMARY | 2024-09-03 19:19 | XMS_ITS | Encounter Summary ---
Author Organization [facility] Address [address] [place] [address]. [place], [place] [address] [place] [address] Care Team Providers Care Fraud Manager Name Role Phone Piyush Pandey MD Unavailable UnavailMegan Rodriguez MD Primary Care Provider [phone] Sharmila Davis APRN DEBURRING MACHINE OPERATOR-C Unavailable Linda Block MD Unavailable [phone] Encounter Details Date Type Department Care Team (Latest Contact Info) Description 02/14/2014 Abstract [facility] Social History Tobacco Use Types Packs/Day Years Used Date Smoking Tobacco: Never Assessed Sex and Gender Information Value Date Recorded Sex Assigned at Not on file Legal Sex Male 10:01 PM CDT Gender Identity Not on file Sexual Orientation Not on file documented as of this encounter Last Filed Vital Signs Vital Sign Reading Time Taken Comments Blood Pressure 187/86 02/14/2014 1:50 PM CDT Pulse 59 02/14/2014 1:50 PM CDT Temperature - - Respiratory Rate - - Oxygen Saturation - - Inhaled Oxygen Concentration - - Weight 102.1 kg (225 lb) 02/14/2014 2:07 PM CDT Height 167.6 cm (5' 6 ) 02/14/2014 1:50 PM CDT Body Mass Index 36.32 02/14/2014 1:50 PM CDT documented in this encounter Progress Notes * Shubham Callahan MD - 02/14/2014 2:00 PM CDT Referring Provider Referring Provider: Dr. Piyush Mac Assessment Assessed 1. Shortness of breath (786.05) (R06.02) 2. Aortic stenosis (424.1) (I35.0) 3. Abnormal finding on pulmonary function testing (794.2) (R94.2) 4. Abnormal finding on lung imaging (793.19) (R91.8) Plan Shortness of breath 1. Administered: Albuterol Sulfate (2.5 MG/3ML) 0.083% Inhalation Nebulization Solution Rx By: Shubham Callahan; For: Shortness of breath; Dose of 2.5 MG; Inhalation; JESSICA = N; Administered by: Isak Velasco: 02/14/2014 2:43:00 PM; Last Updated By: Isak Velasco; 02/14/2014 2:43:39 PM 2. *Pulmonary Stress Test In Office Status: Complete Done: 14Feb2014 Perform: In Office Due: [id number]; Last Updated By: Isak Velasco; 02/14/2014 2:43:40 PM; Ordered; For: Shortness of breath; Ordered By: Shubham Callahan 3. *Spirometry with Bronchodilator Admin In Office Status: Complete Done: 14Feb2014 Perform: In Office Due: [id number]; Last Updated By: Isak Velasco; 02/14/2014 2:43:39 PM; Ordered; For: Shortness of breath; Ordered By: Shubham aCllahan 4. Nebulizer In Office Status: Complete Done: 14Feb2014 Perform: In Office Due: [id number]; Last Updated By: Isak Velasco; 02/14/2014 2:43:40 PM; Ordered; For: Shortness of breath; Ordered By: Shubham Callahan Plan Comments: Complete pulmonary function test. CT scan of the chest without contrast. See me after above. Discussion/Summary Discussion Summary: This patient returns today for further pulmonary evaluation. I met this patientduring a hospitalization in March of 2012 at [facility]. He was in the hospital with congestive heart failure. At that time, he had a pulmonary function test which suggested restriction. I thought it was consistent with pulmonary edema and prior sternotomy. He also had a CT scan of the chest done that I thought showed changes on the spectrum of pulmonary edema. There were some indeterminate nodules. At that time, a recommendation was given to the patient to follow-up on the nodules. He never did that. My guess is it is benign granulomatous disease. Nevertheless, since these nodules cannot be appreciated with a plain film, I think it?s worth getting a dedicated CAT scan just to take a look at them. Reason For Visit Reason For Visit: Consultation Follow-Up Chief Complaint Chief Complaints 1. Shortness of Breath History of Present Illness HPI: This patient is referred back for evaluation of shortness of breath. This patient has a history of aortic stenosis. He has undergone aortic valve replacement. He is seeing Dr. Pandey for worsening dyspnea. The patient says that he has dyspnea with most physical activity. Walking any short distances gets him symptomatic. No chest pain. He has had an intermittent cough and maybe some wheeze. The patient has never been formally diagnosed with any lung disease. I evaluated this patient back during a hospitalization in March of 2012 for shortness of breath. Pulmonary function test at that time suggested a restrictive ventilatory defect. My impression was that the findings were due to congestive heart failure. During that hospitalization, Dr. Block also p erformed a CT scan of the chest. There were findings consistent with pulmonary edema. There were some indeterminate pulmonary nodules. If memory serves me correctly, the patient never followed through with that evaluation. The patient has a remote history of smoking for only about five years. He quit over thirty years ago. Review of Systems Review of Systems CIAR: Constitutional: Negative. Head Eyes Ears Nose and Throat: negative. Cardiovascular: Chest pain or discomfort. Lightheadedness. Palpitations. Edema was not present. Respiratory: dyspnea, but no wheezing, no cough and no orthopnea not coughing up colored sputum Gastrointestinal: Negative. Genitourinary: Negative. Musculoskeletal: Negative. Integumentary: Negative. Neurological: Negative. Psychiatric: Negative. Endocrine: Negative. Hematologic/Lymphatic: Negative. Past Medical History Problems 1. History of cardiac disorder (V12.50) (Z86.79) 2. History of diabetes mellitus (V12.29) (Z86.39) 3. History of hypertension (V12.59) (Z86.79) Surgical History Problems 1. History of Hip Replacement ?? Left, 2010 [...] AT BEDTIME; Therapy: (Recorded:14Feb2014) to Recorded Allergies Medication 1. No Known Drug Allergies Vitals Vital Signs [Data Includes: Current Encounter] Recorded by : Isak Velasco at 14Feb2014 02:07PM Recorded by : Isak Velasco at [id number] 01:50PM Heart Rate 59 Systolic 187 Diastolic 86 O2 Saturation 97 Height 5 ft 6 in Weight 225 lb BMI Calculated 36.32 BSA Calculated 2.1 Unable to obtain weight Patient stated weight Patient stated weight Immunizations Influenza --- Series1: May 2013 Pneumococcal [...] Recent and remote memory: Demonstrates normal memory. Spirometry Spirometry: Spirometry shows a nonspecific ventilatory defect. Results/Data Walking study showed a room air saturation of 97%. He walked 400 feet. Lowest saturation was 93%, it was 95% during recovery. Pre-exercise dyspnea score 3-4. Post-exercise dyspnea score same. September chest x-ray reviewed. Signatures Electronically signed by : Shubham Callahan M.D.; Feb 15 2014 6:46PM DIRECTOR TRAFFIC AND PLANNING (Author) documented in this encounter Plan of Treatment Upcoming Encounters Date Type Department Care Team (Late st Contact Info) Description 09/25/2024 2:00 PM DIRECTOR TRAFFIC AND PLANNING Appointment [facility] [address] [place] [address] Zayra Powell, CONTROL AND RECOVERY SPECIAL TACTICS [address] [place] [address] 10/16/2024 3:30 PM DIRECTOR TRAFFIC AND PLANNING [facility] [address] [place] [phone] Brit Gonzáles MD [address] [place] [address] documented as of this encounter Visit Diagnoses Not on filedocumented in this encounter Care Teams Fraud Manager Relationship Specialty Start Date End Date Megan Infante MD [address] [place] [address] PCP - General FAMILY PRACTICE 04/06/16 Piyush Pandey MD [place] Supervisor Publications Production CARDIOVASCULAR DISEASE 04/06/16 12/28/23 Sharmila Davis, JAZZ SINGER, DEBURRING MACHINE OPERATOR-C [address] [facility] [address] [place] [address] NURSE PRACTITIONER 01/04/17 04/03/24 Linda Block MD [address] [facility] [address] [place] [address] [employer] Supervisor Publications Production CLINICAL CARDIAC ELECTROPHYSIOLOGY 02/08/17 04/12/23 documented as of this encounter
--- OUTSIDE RECORDS SUMMARY | 2024-09-03 19:19 | XMS_ITS | Encounter Summary ---
Author Organization [facility] Address [address] [place] [address]. [place] [address] [place] [address] Care Team Providers Care Personnel Adviser Name Role Phone Unavailable Primary Care Provider Unavailabl e Encounter Details Date Type Department Care Team (Late st Contact Info) Description 02/16/2011 Abstract [facility] [address] [place] [address] Eun Landry MD Social History [...] st Contact Info) Description 09/25/2024 2:00 PM PRINTED CIRCUIT BOARD PCB DRAFTSMAN Appointment [facility] [address] [place] [address] Zayra oPwell, FULL STACK SOFTWARE DEVELOPER [address] [place] [address] 10/16/2024 3:30 PM PRINTED CIRCUIT BOARD PCB DRAFTSMAN Office Visit [facility] [address] [phone] Brit Gonzáles MD [address] [place] [address] documented as of this encounter Procedures Procedure Name Priority Date/Time Associated Diagnosis Comments EXTERNAL EJECTION FRACTION Routine 02/16/2011 12:00 AM CDT documented in this encounter Results * EXTERNAL EJECTION FRACTION (02/16/2011 12:00 AM CDT) EJECTION FRACTION 55-60 [facility] Comment: A single tilting disk mechanical prosthetic valve is present in theaortic position and appears grossly normal.The measured peakinstantaneous transvalvular gradient is 52 mmHg.There is trace to mildaortic regurgitation present. The left ventricle has mild concentric hypertrophy.The leftventricular ejection fraction was visually estimated to be 55-60%.The left atrium cavity size is enlarged.There is mild mitral regurgitation. There is mild tricuspid regurgitation.The estimated RVSP isapproximately 36 mmHg. Anatomical Region Laterality Modality Other 02/16/2011 02/16/2011 Narrative 02/16/2011 12:00 AM CDT TRANSESOPHAGEAL ECHO (NEMO), Piyush Pandey M.D. us Generic Conversion Md LANDRY OTHER Final R esult documented in this encounter Visit Diagnoses Not on filedocumented in this encounter
--- OUTSIDE RECORDS SUMMARY | 2024-09-03 19:19 | XMS_ITS | Encounter Summary ---
Author Organization [facility] Address [address] [place] [address]. [place] [address] [place] [address] Care Team Providers Care Engineer Steam Name Role Phone Unavailable Primary Care Provider Unavailabl e Encounter Details Date Type Department Care Team (Late st Contact Info) Description 11/30/2013 Abstract [facility] [address] [place] [address] Eun Tovar MD Social History [...] Contact Info) Description 09/25/2024 2:00 PM SUPERVISOR SULFURIC ACID PLANT Appointment [facility] [address] [place] [address] Zayra Powell, NUISANCE WILDLIFE TRAPPER [address] [place] [address] 10/16/2024 3:30 PM SUPERVISOR SULFURIC ACID PLANT Office Visit [facility] [address] [phone] Brit Gonzáles MD [address] [place] [address] documented as of this encounter Visit Diagnoses Not on filedocumented in this encounter
--- OUTSIDE RECORDS SUMMARY | 2024-09-03 19:19 | XMS_ITS | Encounter Summary ---
Author Organization [facility] Address [address] [place] [address]. [place] [address] [place] [address] Care Team Providers Care Swimming Pool Salesperson Name Role Phone Piyush Pandey MD, Amy E MD Primary Care Provider [phone] Encounter Details Date Type Department Care Team (Late st Contact Info) Description 01/29/2011 Abstract [facility] [address] [place] [address] Eun Tovar MD Social History Tobacco [...] st Contact Info) Description 09/25/2024 2:00 PM SATELLITE PROJECT SITE MONITOR Appointment [facility] [address] [place] [address] Zayra Powell, BAR HOST [address] [place] [address] 10/16/2024 3:30 PM SATELLITE PROJECT SITE MONITOR Office Visit [facility] [address] [place] [phone] Brit Gonzáles MD [address] [place] [phone] documented as of this encounter Visit Diagnoses Not on filedocumented in this encounter Care Teams Swimming Pool Salesperson Relationship Specialty Start Date End Date Megan Infante MD [address] [facility] [place] [address] PCP - General FAMILY PRACTICE 04/06/16 Piyush Pandey MD [place] Glass Cutter Helper CARDIOVASCULAR DISEASE 04/06/16 12/28/23 documented as of this encounter
--- OUTSIDE RECORDS SUMMARY | 2024-09-03 19:19 | XMS_ITS | Encounter Summary ---
Author Organization [facility] Address [address] [place] [address]. [place] [address] [place] [address] Care Team Providers Care Coding Manager Name Role Phone Unavailable Primary Care Provider Unavailabl e Encounter Details Date Type Department Care Team (Late st Contact Info) Description 03/17/2012 Abstract [facility] [address] [place] [address] Eun Landry MD Social History [...] st Contact Info) Description 09/25/2024 2:00 PM IN HOUSE COUNSEL Appointment [facility] [address] [place] [address] Zayra Powell, DIALER [address] [place] [address] 10/16/2024 3:30 PM IN HOUSE COUNSEL Office Visit [facility] [address] [phone] Brit Gonzáles MD [address] [place] [address] documented as of this encounter Procedures Procedure Name Priority Date/Time Associated Diagnosis Comments EXTERNAL EJECTION FRACTION Routine 03/17/2012 12:00 AM CDT documented in this encounter Results * EXTERNAL EJECTION FRACTION (03/17/2012 12:00 AM CDT) EJECTION FRACTION 45 [facility] Comment: A tilting disk mechanical prosthetic valve is present in the aorticposition with a peak instantaneous transvalvular gradient of 40 mmHg. There is trace aortic regurgitation.The left ventricle has mild concentric hypertrophy. ??There is diffuseglobal hypokinesis of the left ventricle. ??The left ventricular ejectionfraction was quantified at 45 %.The left atrium cavity size is enlarged.There is mild mitral regurgitation present.There is mild tricuspid reguritation present. ??The estimated RVSP isapproximately 48-51 mmHg. Anatomical Region Laterality Modality Other 03/17/2012 03/17/2012 Narrative 03/17/2012 12:00 AM CDT ECHO WITH CARDIAC DOPPLER COMP, ??Piyush Pandey MD ([facility]) us Generic Conversion Md LANDRY OTHER Final R esult documented in this encounter Visit Diagnoses Not on filedocumented in this encounter
--- OUTSIDE RECORDS SUMMARY | 2024-09-03 19:19 | XMS_ITS | Encounter Summary ---
Author Organization [facility] Address [facility] [place] [address] [place] [address] Care Team Providers Care Manager Analytical Name Role Phone Piyush Pandey MD Unavailable Unavailabl e Megan Infante MD Primary Care Provider [phone] Sharmila Davis APRN HEALTH AND SAFETY CONSULTANT-C Unavailable Marlee Vega MD Unavailable [phone] Jeff Grace MD Unavailable Encounter Details Date Type Department Care Team (Late st Contact Info) Description 04/15/2012 Abstract [facility] [address] [place] [address] , Generic Conversion, Social History Tobacco Use [...] Contact Info) Description 09/25/2024 2:00 PM DIRECTOR ELECTRICAL ENGINEERING Appointment [facility] [address] [place] [address] Zayra Powell, TUGBOAT OPERATOR [address] [place] [address] 10/16/2024 3:30 PM DIRECTOR ELECTRICAL ENGINEERING Office Visit [facility] [address] [place] [address] Brit Gonzáles MD [address] [place] [address] documented as of this encounter Procedures Procedure Name Priority Date/Time Associated Diagnosis Comments ECG 12-LEAD Routine 04/15/2012 8:08 AM CDT documented in this encounter Results * ECG 12 lead (04/15/2012 8:08 AM CDT) 04/15/2012 8:08 AM CDT Narrative [facility] - 04/15/2012 4:47 PM CDT ? [facility] ? [address] [place], [place] ??[address] ? Test Date: ?2012-04-15 Pat Name: ? OBIE SIMS ?Department: ?? 1 ? Room: ? [id number] Gender: ? M ?Reptile Keeper: ?? WILLAM HERRON: ?1955 ? Requested By: MARLEE VEGA Order Number: [id number] ?Sage LANDRY: ?? Armand Lentz ? Measurements Intervals ?[place] ? Rate: ? 74 ? P: ? SC: ?QRS: ?-12 QRSD: ? 108 ?T: ?139 QT: ? 424 ? QTc: ?470 ? Interpretive Statements Sinus rhythm with occasional premature ventricular complexes Incomplete left bundle branch block Left ventricular hypertrophy with repolarization abnormality Abnormal ECG Procedure Note , Eun Tejeda MD - 04/19/2019 [facility] [address] [place] [address] Test Date: 2012-04-15 Pat Name: OBIE SIMS Department: 1 Room: [facility] Gender: M Reptile Keeper: CHRISChema : 1955 Requested By: MARLEE VEGA Order Number: [id number] [place] MD: Armand Lentz Measurements Intervals [place] Rate: 74 P: SC: QRS: -12 QRSD: 108 T: 139 QT: 424 QTc: 470 Interpretive Statements Sinus rhythm with occasional premature ventricular complexes Incomplete left bundle branch block Left ventricular hypertrophy with repolarization abnormality Abnormal ECG us Generic Conversion Md LANDRY ECG ORDERABLES Final R esult [facility] documented in this encounter Visit Diagnoses Not on filedocumented in this encounter Care Teams Manager Analytical Relationship Specialty Start Date End Date Megan Infante MD [address] [place] [phone] PCP - General FAMILY PRACTICE 04/06/16 Piyush Pandey MD [place] Sponge Packer CARDIOVASCULAR DISEASE 04/06/16 12/28/23 Sharmila Davis APRN, HEALTH AND SAFETY CONSULTANT-C [address] [facility] [address] [place] [phone] NURSE PRACTITIONER 01/04/17 04/03/24 Marlee Vega MD [address] [phone] [place] Sponge Packer CLINICAL CARDIAC ELECTROPHYSIOLOGY 02/08/17 04/12/23 Jeff Grace MD [address] [facility] [address] [phone] Consulting Physician INTERNAL MEDICINE 02/20/19 3 documented as of this encounter
--- OUTSIDE RECORDS SUMMARY | 2024-09-03 19:19 | XMS_ITS | Encounter Summary ---
Author Organization [facility] Address [address] [place] [address]. [place] [address] [place] [address] Care Team Providers Care Farm Boss Name Role Phone Piyush Pandey MD Unavailable UnavailMegan Rodriguez MD Primary Care Provider [phone] Sharmila Davis APRN, ARCHITECTURE MANAGER-C Unavailable Linda Block MD Unavailable [phone] Encounter Details Date Type Department Care Team (Late st Contact Info) Description 12/29/[address] [facility] [address] [place] [address] Matias Mac MD [address] [place] [address] Social History Tobacco Use Types Packs/Day Years [...] st Contact Info) Description 09/25/2024 2:00 PM INSPECTION SUPERVISOR Appointment [facility] [address] [place] [address] Zayra Powell FNP [address] [place] [address] 10/16/2024 3:30 PM INSPECTION SUPERVISOR Office Visit [facility] [place] [phone] Brit Gonzáles MD [address] [place] [address] documented as of this encounter Visit Diagnoses Diagnosis Other and unspecified angina pectoris (CMS/HCC) Other and unspecified angina pectoris documented in this encounter Care Teams Farm Boss Relationship Specialty Start Date End Date Megan Infante MD [address] [place] [address] PCP - General FAMILY PRACTICE 04/06/16 Piyush Pandey MD [place] [employer]erson CARDIOVASCULAR DISEASE 04/06/16 12/28/23 Sharmila Davis, VENEER GLUE JOINTER FEEDBACK, ARCHITECTURE MANAGER-C [address] [facility] [address] [place] [phone] NURSE PRACTITIONER 01/04/17 04/03/24 Linda Block MD [address] [facility] [address] [place] [phone] [place] [employer] CLINICAL CARDIAC ELECTROPHYSIOLOGY 02/08/17 04/12/23 documented as of this encounter
--- OUTSIDE RECORDS SUMMARY | 2024-09-03 19:19 | XMS_ITS | Encounter Summary ---
Author Organization [facility] Address [facility] [place] [address] [place] [address] Care Team Providers Care Face Burler Name Role Phone Piyush Pandey MD Unavailable Unavailabl e Megan Infante MD Primary Care Provider [phone] Sharmila Davis APRN BOAT JOINER-C Unavailable [phone] Marlee Vega MD Unavailable [phone] Jeff Grace MD Unavailable Encounter Details Date Type Department Care Team (Late st Contact Info) Description 04/13/2012 Abstract [facility] [address] [place] [address] , Generic Conversion, Social History Tobacco Use [...] st Contact Info) Description 09/25/2024 2:00 PM VINYL WELDER AND FABRICATOR Appointment [facility] [address] [place] [address] Zayra Powell, RN ORTHOPEDIC [address] [place] [address] 10/16/2024 3:30 PM VINYL WELDER AND FABRICATOR Office Visit [facility] [address] [place] [address] Brit Gonzáles MD [address] [place] [address] documented as of this encounter Procedures Procedure Name Priority Date/Time Associated Diagnosis Comments ECG 12-LEAD Routine 04/13/2012 8:18 AM CDT documented in this encounter Results * ECG 12 lead (04/13/2012 8:18 AM CDT) 04/13/2012 8:18 AM CDT Narrative [facility] - 04/14/2012 12:25 AM CDT ? [facility] ? [address] [place], [place] ??[address] ? Test Date: ?2012-04-13 Pat Name: ? OBIE BETHANY ?Department: ?? 1 ? Room: ? 0404AA Gender: ? M ?Rfid Developer: ?? JM : ?1955 ? Requested By: MARLEE VEGA Order Number: [id number] ?Sage LANDRY: ?? Armand Lentz ? Measurements Intervals ?[place] ? Rate: ? 85 ? P: ? IN: ?QRS: ?-12 QRSD: ? 104 ?T: ?162 QT: ? 422 ? QTc: ?502 ? Interpretive Statements Atrial fibrillation with premature ventricular or aberrantly conducted complexes Minimal voltage criteria for LVH, may be normal variant ST & T wave abnormality, consider lateral ischemia or digitalis effect Prolonged QT Abnormal ECG Procedure Note Eun Landry, - 04/19/2019 [facility] [address] [place] [address] Test Date: 2012-04-13 Pat Name: OBIE SIMS Department: 1 [facility] Gender: M Rfid Developer: LISA : 1955 Requested By: MARLEE VEGA Order Number: [id number] [place] MD: Armand Lentz Measurements Intervals [place] Rate: 85 P: IN: QRS: -12 QRSD: 104 T: 162 QT: 422 QTc: 502 Interpretive Statements Atrial fibrillation with premature ventricular or aberrantly conducted complexes Minimal voltage criteria for LVH, may be normal variant ST & T wave abnormality, consider lateral ischemia or digitalis effect Prolonged QT Abnormal ECG us Generic Conversion Md LANDRY ECG ORDERABLES Final R esult [facility] documented in this encounter Visit Diagnoses Not on filedocumented in this encounter Care Teams Face Burler Relationship Specialty Start Date End Date Megan Infante MD [address] [facility] [place] [address] PCP - General FAMILY PRACTICE 04/06/16 Piyush Pandey MD [employer] Former Machine Operator CARDIOVASCULAR DISEASE 04/06/16 12/28/23 Sharmila Davis, IV THERAPY NURSE, BOAT JOINER-C [address] [facility] [address] [place] [phone] NURSE PRACTITIONER 01/04/17 04/03/24 Marlee Vega MD [address] [address] [employer] Former Machine Operator CLINICAL CARDIAC ELECTROPHYSIOLOGY 02/08/17 04/12/23 Jeff Grace MD [address] [facility] [address] [place] [phone] Consulting Physician INTERNAL MEDICINE 02/20/19 6 3 documented as of this encounter
--- OUTSIDE RECORDS SUMMARY | 2024-09-03 19:19 | XMS_ITS | Encounter Summary ---
Author Organization [facility] Address [address] [place] [address]. [place] [address] [place] [address] Care Team Providers Care Ore Feeder Name Role Phone Piyush Pandey MD Unavailable UnavailMegan Rodriguez MD Primary Care Provider [phone] Sharmila Davis APRN MBA INTERN-C Unavailable [phone] Linda Block MD Unavailable [phone] Encounter Details Date Type Department Care Team (Late st Contact Info) Description 04/14/2007 Abstract [facility] CONVERSION [address] [place] [address] Palomo Ponce MD [facility] [place] [address] Social History Tobacco Use Types Packs/Day Years [...] st Contact Info) Description 09/25/2024 2:00 PM COMMODITIES MANAGER Appointment [facility] [address] [address] Zayra Powell, PILL MACHINE OPERATOR [address] [place] [address] 10/16/2024 3:30 PM COMMODITIES MANAGER Office Visit [facility] [place] [address] Brit Gonzáles MD [address] [place] [address] documented as of this encounter Visit Diagnoses Not on filedocumented in this encounter Care Teams Ore Feeder Relationship Specialty Start Date End Date Megan Infante MD [address] [place] [address] PCP - General FAMILY PRACTICE 04/06/16 Piyush Pandey MD [place] Endocrinologist CARDIOVASCULAR DISEASE 04/06/16 12/28/23 Sharmila Davis, DANNY, MBA INTERN-C 619 [facility] 4P57 [place] [address] NURSE PRACTITIONER 01/04/17 04/03/24 Linda Block MD 619 [facility] [address] [place] [address] [place] Endocrinologist CLINICAL CARDIAC ELECTROPHYSIOLOGY 02/08/17 04/12/23 documented as of this encounter
--- OUTSIDE RECORDS SUMMARY | 2024-09-03 19:19 | XMS_ITS | Encounter Summary ---
Author Organization [facility] Address [address] [place] [address]. [place] [address] [place] [address] Care Team Providers Care Pleating Machine Operator Name Role Phone Piyush Pandey MD Unavailable UnavailMegan Rodriguez MD Primary Care Provider [phone] Sharmila Davis APRN IN HOME AIDE-C Unavailable Linda Block MD Unavailable [phone] Encounter Details Date Type Department Care Team (Late st Contact Info) Description 05/20/2006 Abstract [facility] CONVERSION [address] [place] [address] Palomo Ponce MD [facility] [place] [address] Social History Tobacco Use Types [...] st Contact Info) Description 09/25/2024 2:00 PM TRAIN BRAKE OPERATOR Appointment [facility] [address] [address] Zayra Powell, MARKET MASTER [address] [place] [address] 10/16/2024 3:30 PM TRAIN BRAKE OPERATOR Office Visit [facility] [place] [address] Brit Gonzáles MD 619 [place] [address] documented as of this encounter Visit Diagnoses Not on filedocumented in this encounter Care Teams Pleating Machine Operator Relationship Specialty Start Date End Date Megan Infante MD [address] [place] [address] PCP - General FAMILY PRACTICE 04/06/16 Piyush Pandey MD [place] C++ Professor CARDIOVASCULAR DISEASE 04/06/16 12/28/23 Sharmila Davis, DANNY, IN HOME AIDE-C 619 [facility] 4P57 [place] [address] NURSE PRACTITIONER 01/04/17 04/03/24 Linda Block MD 619 [facility] [address]P57 [place] [address] [place] C++ Professor CLINICAL CARDIAC ELECTROPHYSIOLOGY 02/08/17 04/12/23 documented as of this encounter
--- OUTSIDE RECORDS SUMMARY | 2024-09-03 19:19 | XMS_ITS | Encounter Summary ---
Author Organization [facility] Address [address] [place] [address]. [place] [address] [place] [address] Care Team Providers Care Cross Tie Cutter Name Role Phone Unavailable Primary Care Provider Unavailabl e Encounter Details Date Type Department Care Team (Late st Contact Info) Description 10/16/2013 Scan [facility] 619 [place] [address] Eun Tovar MD Social History [...] Contact Info) Description 09/25/2024 2:00 PM METAL EXPEDITER Appointment [facility] [address] [place] [address] Zayra Powell, BATCH MIXING TRUCK DRIVER [address] [place] [address] 10/16/2024 3:30 PM METAL EXPEDITER Office Visit [facility] [address] [address] Brit Gonzáles MD 619 [place] [address] documented as of this encounter Visit Diagnoses Not on filedocumented in this encounter
--- OUTSIDE RECORDS SUMMARY | 2024-09-03 19:19 | XMS_ITS | Encounter Summary ---
Author Organization [facility] Address [address] [place] [address]. [place] [address] [place] [address] Care Team Providers Care Construction Manager Name Role Phone Piyush Pandey MD, Amy E MD Primary Care Provider [phone] Encounter Details Date Type Department Care Team (Late st Contact Info) Description 10/27/2012 Scan [facility] [address] [address] Eun Tovar MD Social History [...] Contact Info) Description 09/25/2024 2:00 PM FIELD REIMBURSEMENT MANAGER Appointment [facility] [address] [place] [address] Zayra Powell, PRINTED CIRCUIT BOARD LAYOUT DESIGNER [address] [place] [address] 10/16/2024 3:30 PM FIELD REIMBURSEMENT MANAGER Office Visit [facility] [address] [place] [phone] Brit Gonzáles MD [address] [place] [address] documented as of this encounter Visit Diagnoses Not on filedocumented in this encounter Care Teams Construction Manager Relationship Specialty Start Date End Date Megan Infante MD [address] [place] [address] PCP - General FAMILY PRACTICE 04/06/16 Piyush Pandey MD [place] Wood Mechanist CARDIOVASCULAR DISEASE 04/06/16 12/28/23 documented as of this encounter
--- OUTSIDE RECORDS SUMMARY | 2024-09-03 19:19 | XMS_ITS | Encounter Summary ---
Author Organization [facility] Address [address] [place] [address]. [place] [address] [place] [address] Care Team Providers Care Chipper Feeder Name Role Phone Piyush Pandey MD Unavailable UnavailMegan Rodriguez MD Primary Care Provider [phone] Sharmila Davis APRN, INSIDE WIRER-C Unavailable Linda Block MD Unavailable [phone] Encounter Details Date Type Department Care Team (Late st Contact Info) Description 10/13/[address] [facility] [address] [place] [address] Matias Mac MD [address] [place] [address] Social History Tobacco Use Types Packs/Day Years [...] st Contact Info) Description 09/25/2024 2:00 PM SE[address] C[address]TER Appointment [facility] [address] [place] [address] Zayra Powell FNP [address] [place] [address] 10/16/2024 3:30 PM SEED CUTTER Office Visit [facility] Gutierrez[address] [place] [address] Brit Gonzáles MD 619 [place] [address] documented as of this encounter Visit Diagnoses Diagnosis Shortness of breath documented in this encounter Care Teams Chipper Feeder Relationship Specialty Start Date End Date Megan Infante MD [address] [place] [address] PCP - General FAMILY PRACTICE 04/06/16 Piyush Pandey MD [place] Vice President Of Customer Service CARDIOVASCULAR DISEASE 04/06/16 12/28/23 Sharmila Davis, TERRAZZO INSTALLER, INSIDE WIRER-C [address] [facility] [address] [place] [address] NURSE PRACTITIONER 01/04/17 04/03/24 Linda Block MD 619 [facility] 4P57 [place] [address] [place] Vice President Of Customer Service CLINICAL CARDIAC ELECTROPHYSIOLOGY 02/08/17 04/12/23 documented as of this encounter
--- OUTSIDE RECORDS SUMMARY | 2024-09-03 19:19 | XMS_ITS | Encounter Summary ---
Author Organization [facility] Address [facility] [place] [address] [place] [address] Care Team Providers Care Mixing Supervisor Name Role Phone Amauri Pandey MD Unavailable Unavailabl Megan Leos MD Primary Care Provider [phone] Sharmila Davis APRN DEVELOPMENT TECHNICAL LEAD-C Unavailable Linda Block MD Unavailable [phone] Encounter Details Date Type Department Care Team (Late st Contact Info) Description 10/16/2013 Abstract [facility] [address] [place] [address] Amauri Pandey MD Social History Tobacco Use [...] Contact Info) Description 09/25/2024 2:00 PM BUSINESS DEVELOPMENT CONSULTANT Appointment [facility] [address] [place] [address] Zayra Powell, EXECUTIVE VICE PRESIDENT AND CHIEF FINANCIAL OFFICER [address] [place] [address] 10/16/2024 3:30 PM BUSINESS DEVELOPMENT CONSULTANT Office Visit [facility] [address] [place] [phone] Brit Gonzáles MD 619 [place] [address] documented as of this encounter Procedures Procedure Name Priority Date/Time Associated Diagnosis Comments ECG 12-LEAD Routine 10/16/2013 10:48 AM BUSINESS DEVELOPMENT CONSULTANT documented in this encounter Results * ECG 12 lead (10/16/2013 10:48 AM BUSINESS DEVELOPMENT CONSULTANT) 10/16/2013 10:4 8 AM BUSINESS DEVELOPMENT CONSULTANT Narrative [facility] - 10/17/2013 3:29 AM BUSINESS DEVELOPMENT CONSULTANT ? [facility] ? [address] [place], [place] ??[address] ? Test Date: ?2013-10-16 Pat Name: ? OBIE SIMS ?Department: ?? 1 ? Room: ? Gender: ? M ?Limnology Teacher: ?? hm : ?1955 ? Requested By: AMAURI PANDEY Order Number: [id number] ? Reading : ?? Amauri Pandey ? Measurements Intervals ?Bertram ? Rate: ? 60 ? P: ? NV: ? 0 ?QRS: ?-17 QRSD: ? 126 ?T: ?143 QT: ? 425 ? QTc: ?426 ? Interpretive Statements ATRIAL FIBRILLATION WITH ABERRANT CONDUCTION OR VENTRICULAR PREMATURE COMPLEXES MODERATE INTRAVENTRICULAR CONDUCTION DELAY MODERATE VOLTAGE CRITERIA FOR LVH, CONSIDER NORMAL VARIANT ST AND T-WAVE ABNORMALITY, CONSIDER LATERAL ISCHEMIA NESS DEVELOPMENT CONSULTANT Procedure Note Eun Landry MD - 04/19/2019 [facility] [address] [place] [address] Test Date: 2013-10-16 Pat Name: OBIE SIMS Department: 1 Room: Gender: M Limnology Teacher: : 1955 Requested By: AMAURI PANDEY Order Number: [id number] Reading MD: Amauri Pandey Measurements Intervals Bertram Rate: 60 P: NV: 0 QRS: -17 QRSD: 126 T: 143 QT: 425 QTc: 426 Interpretive Statements ATRIAL FIBRILLATION WITH ABERRANT CONDUCTION OR VENTRICULAR PREMATURE COMPLEXES MODERATE INTRAVENTRICULAR CONDUCTION DELAY MODERATE VOLTAGE CRITERIA FOR LVH, CONSIDER NORMAL VARIANT ST AND T-WAVE ABNORMALITY, CONSIDER LATERAL ISCHEMIA NESS DEVELOPMENT CONSULTANT us Generic Conversion Md LANDRY ECG ORDERABLES Final R esult [facility] documented in this encounter Visit Diagnoses Diagnosis Pre-operative cardiovascular examination documented in this encounter Care Teams Mixing Supervisor Relationship Specialty Start Date End Date Megan Infante MD [address] [facility] [place] [address] PCP - General FAMILY PRACTICE 04/06/16 Amauri Pandey MD [place] Assistant Field Hockey Coach CARDIOVASCULAR DISEASE 04/06/16 12/28/23 Sharmila Davis, LEAF CONDITIONER HELPER, DEVELOPMENT TECHNICAL LEAD-C [address] [facility] [address] [place] [address] NURSE PRACTITIONER 01/04/17 04/03/24 Linda Block MD 619 [address] [facility] [address] [place] [address] [place] Assistant Field Hockey Coach CLINICAL CARDIAC ELECTROPHYSIOLOGY 02/08/17 04/12/23 documented as of this encounter
--- OUTSIDE RECORDS SUMMARY | 2024-09-03 19:19 | XMS_ITS | Encounter Summary ---
Author Organization [facility] Address [address] [place] [address]. [place] [address] [place] [address] Care Team Providers Care Choir Teacher Name Role Phone Piyush Pandey MD Unavailable UnavailMegan Rodriguez MD Primary Care Provider [phone] Sharmila Davis APRN WAREHOUSE FOREMAN-C Unavailable [phone] Linda Block MD Unavailable [phone] Encounter Details Date Type Department Care Team (Late st Contact Info) Description 04/22/2006 Abstract [facility] CONVERSION [address] [place] [address] Palomo Ponce MD [facility] [place] [address] Social History Tobacco Use Types [...] st Contact Info) Description 09/25/2024 2:00 PM INBOUND SALES CONSULTANT Appointment [facility] [address] [address] Zayra Powell, TRIMMER BUFFING WHEEL [address] [place] [address] 10/16/2024 3:30 PM INBOUND SALES CONSULTANT Office Visit [facility] [place] [address] Brit Gonzáles MD 619 [place] [address] documented as of this encounter Visit Diagnoses Not on filedocumented in this encounter Care Teams Choir Teacher Relationship Specialty Start Date End Date Megan Infante MD [address] [place] [address] PCP - General FAMILY PRACTICE 04/06/16 Piyush Pandey MD [place] Thread Cutter Tender CARDIOVASCULAR DISEASE 04/06/16 12/28/23 Sharmila Davis, DANNY, WAREHOUSE FOREMAN-C 619 [facility] [address] [place] [address] NURSE PRACTITIONER 01/04/17 04/03/24 Linda Block MD 619 [facility] [address] [place] [address] [place] Thread Cutter Tender CLINICAL CARDIAC ELECTROPHYSIOLOGY 02/08/17 04/12/23 documented as of this encounter
--- OUTSIDE RECORDS SUMMARY | 2024-09-03 19:19 | XMS_ITS | Encounter Summary ---
Author Organization [facility] Address [address] [place] [address]. [place] [address] [place] [address] Care Team Providers Care Sports Athletic Trainer Name Role Phone Piyush Pandey MD Unavailable UnavailMegan Rodriguez MD Primary Care Provider [phone] Sharmila Davis APRN, SALON PROFESSIONAL-C Unavailable Linda Block MD Unavailable [phone] Encounter Details Date Type Department Care Team (Late st Contact Info) Description 10/20/[address] [facility] [address] [place] [address] Matias Mac MD [address] [place] [address] Social History Tobacco Use Types Packs/Day Years [...] st Contact Info) Description 09/25/2024 2:00 PM VALVE MACHINE OPERATOR Appointment [facility] [address] [place] [address] Zayra Powell FNP [address] [place] [address] [address] 10/16/2024 3:30 PM VALVE MACHINE OPERATOR Office Visit [facility] Gutierrez[address] [place] [address] Brit Gonzáles MD 619 [place] [address] documented as of this encounter Visit Diagnoses Diagnosis Shortness of breath documented in this encounter Care Teams Sports Athletic Trainer Relationship Specialty Start Date End Date Megan Infante MD [address] [place] [address] PCP - General FAMILY PRACTICE 04/06/16 Piyush Pandey MD [place] Core Inspector CARDIOVASCULAR DISEASE 04/06/16 12/28/23 Sharmila Davis, DATA TRANSCRIBER, SALON PROFESSIONAL-C 619 [facility] [address]P57 [place] [address] NURSE PRACTITIONER 01/04/17 04/03/24 Linda Block MD 619 [facility] [address] [place] [address] [place] Core Inspector CLINICAL CARDIAC ELECTROPHYSIOLOGY 02/08/17 04/12/23 documented as of this encounter
--- OUTSIDE RECORDS SUMMARY | 2024-09-03 19:19 | XMS_ITS | Encounter Summary ---
Author Organization [facility] Address [address] [place] [address]. [place] [address] [place] [address] Care Team Providers Care Web Engineer Name Role Phone Unavailable Primary Care Provider Unavailabl e Encounter Details Date Type Department Care Team (Late st Contact Info) Description 12/07/2013 Scan [facility] 619 [place] [address] Eun Tovar MD Social History [...] Info) Description 09/25/2024 2:00 PM SOLAR PHOTOVOLTAIC ELECTRICIAN Appointment [facility] [address] [place] [address] Zayra Powell, EMERGENCY MEDICAL SERVICE COORDINATOR [address] [place] [address] 10/16/2024 3:30 PM SOLAR PHOTOVOLTAIC ELECTRICIAN Office Visit [facility] [address] [phone] Brit Gonzáles MD 619 [place] [address] documented as of this encounter Visit Diagnoses Not on filedocumented in this encounter
--- OUTSIDE RECORDS SUMMARY | 2024-09-03 19:19 | XMS_ITS | Encounter Summary ---
Author Organization [facility] Address [address] [place] [address]. [place] [address] [place] [address] Care Team Providers Care Welfare Eligibility Worker Name Role Phone Unavailable Primary Care Provider Unavailabl e Encounter Details Date Type Department Care Team (Late st Contact Info) Description 11/13/2013 Abstract [facility] 619 [place] [address] Eun Tovar MD Social History [...] st Contact Info) Description 09/25/2024 2:00 PM TRUST ACCOUNTS SUPERVISOR Appointment [facility] [address] [place] [address] Zayra Powell, DIRECTOR DAY CARE CENTER [address] [place] [address] 10/16/2024 3:30 PM TRUST ACCOUNTS SUPERVISOR Office Visit [facility] [address] [phone] Brit Gonzáles MD 619 [place] [address] documented as of this encounter Visit Diagnoses Not on filedocumented in this encounter
--- OUTSIDE RECORDS SUMMARY | 2024-09-03 19:19 | XMS_ITS | Encounter Summary ---
Author Organization [facility] Address [address] [place] [address]. [place] [address] [place] [address] Care Team Providers Care Search Marketing Coordinator Name Role Phone Piyush Pandey MD Unavailable UnavailMegan Rodriguez MD Primary Care Provider [phone] Sharmila Davis APRN, FLEECE TIER-C Unavailable Linda Block MD Unavailable [phone] Encounter Details Date Type Department Care Team (Late st Contact Info) Description 08/22/[address] [facility] [address] [place] [address] Matias Mac MD [address] [place] [address] Social History Tobacco Use Types Packs/Day Years [...] Contact Info) Description 09/25/2024 2:00 PM RETAIL MERCHANDISER TECHNICIAN Appointment [facility] [address] [place] [address] Zayra Powell FNP [address] [place] [address] 10/16/2024 3:30 PM RETAIL MERCHANDISER TECHNICIAN Office Visit [facility] Gutierrez[address] [place] [address] Brit Gonzáles MD 619 [place] [address] documented as of this encounter Visit Diagnoses Diagnosis Chest pain Chest pain, unspecified documented in this encounter Care Teams Search Marketing Coordinator Relationship Specialty Start Date End Date Megan Infante MD [address] [place] [address] PCP - General FAMILY PRACTICE 04/06/16 [address] Freight Brake Coupler CARDIOVASCULAR DISEASE 04/06/16 12/28/23 Sharmila Davis, DANNY, FLEECE TIER-C 619 [facility]] [address] [place] [address] NURSE PRACTITIONER 01/04/17 04/03/24 Linda Block MD 619 [facility] [address] [place] [address] Freight Brake Coupler CLINICAL CARDIAC ELECTROPHYSIOLOGY 02/08/17 04/12/23 documented as of this encounter
--- OUTSIDE RECORDS SUMMARY | 2024-09-03 19:19 | XMS_ITS | Encounter Summary ---
Author Organization [facility] Address [address] [place] [address]. [place] [address] [place] [address] Care Team Providers Care Pv Design Engineer Name Role Phone Piyush Pandey MD Unavailable UnavailMegan Rodriguez MD Primary Care Provider [phone] Sharmila Davis APRN VOCATIONAL COORDINATOR-C Unavailable [phone] Linda Block MD Unavailable [phone] Encounter Details Date Type Department Care Team (Late st Contact Info) Description 09/01/2007 Abstract [facility] [address] [place] [address] Palomo Ponce MD [facility] [place] [address] Social History Tobacco Use Types [...] Contact Info) Description 09/25/2024 2:00 PM POLITICAL CONSULTANT Appointment [facility] [address] [address] Zayra Powell, BUCKLE COVERER [address] [place] [address] 10/16/2024 3:30 PM POLITICAL CONSULTANT Office Visit [facility] [place] [address] Brit Gonzáles MD 619 [place] [address] documented as of this encounter Visit Diagnoses Not on filedocumented in this encounter Care Teams Pv Design Engineer Relationship Specialty Start Date End Date Megan Infante MD [address] [place] [address] PCP - General FAMILY PRACTICE 04/06/16 Piyush Pandey MD [place] Automobile Painter CARDIOVASCULAR DISEASE 04/06/16 12/28/23 Sharmila Davis, DANNY, VOCATIONAL COORDINATOR-C 619 [facility] [address] [place] [phone] NURSE PRACTITIONER 01/04/17 04/03/24 Linda Block MD 619 [facility] [address] [place] [address] [place] Automobile Painter CLINICAL CARDIAC ELECTROPHYSIOLOGY 02/08/17 04/12/23 documented as of this encounter
--- OUTSIDE RECORDS SUMMARY | 2024-09-03 19:19 | XMS_ITS | Encounter Summary ---
Author Organization [facility] Address [address] [place] [address]. [place] [address] [place] [address] Care Team Providers Care Mechanic Welder Truck Driver Name Role Phone Unavailable Primary Care Provider Unavailabl e Encounter Details Date Type Department Care Team (Late st Contact Info) Description 10/27/2012 Abstract [facility] [address] [address] Eun Landry MD Social History Tobacco Use [...] 09/25/2024 2:00 PM CAREER DEVELOPMENT MANAGER Appointment [facility] [address] [place] [address] Zayra Powell, CLINICAL CARE COORDINATOR [address] [place] [address] 10/16/2024 3:30 PM CAREER DEVELOPMENT MANAGER Office Visit [facility] [address] [phone] Brit Gonzáles MD [address] [place] [address] documented as of this encounter Procedures Procedure Name Priority Date/Time Associated Diagnosis Comments EXTERNAL EJECTION FRACTION Routine 10/27/2012 12:00 AM CAREER DEVELOPMENT MANAGER documented in this encounter Results * EXTERNAL EJECTION FRACTION (10/27/2012 12:00 AM CAREER DEVELOPMENT MANAGER) EJECTION FRACTION 62 [facility] Anatomical Region Laterality Modality Other 10/27/2012 10/27/2012 Narrative 10/27/2012 12:00 AM CAREER DEVELOPMENT MANAGER transthoracic echo, Piyush Pandey M.D. us Generic Conversion Md LANDRY OTHER Final R esult documented in this encounter Visit Diagnoses Not on filedocumented in this encounter
--- OUTSIDE RECORDS SUMMARY | 2024-09-03 19:19 | XMS_ITS | Encounter Summary ---
Author Organization [facility] Address [address] [place] [address]. [place] [address] [place] [address] Care Team Providers Care Faith Healer Name Role Phone Piyush Pandey MD, Amy E MD Primary Care Provider [phone] Encounter Details Date Type Department Care Team (Late st Contact Info) Description 02/02/2014 Abstract [facility] [address] [place] [phone] Eun Tovar MD Social History Tobacco [...] st Contact Info) Description 09/25/2024 2:00 PM OCEAN CLAM BOAT CAPTAIN Appointment [facility] [address] [place] [address] Zayra Powell, OPERATIONS MGR [address] [place] [address] 10/16/2024 3:30 PM OCEAN CLAM BOAT CAPTAIN Office Visit [facility] [address] [place] [phone] Brit Gonzáles MD [address] [place] [phone] documented as of this encounter Visit Diagnoses Not on filedocumented in this encounter Care Teams Faith Healer Relationship Specialty Start Date End Date Megan Infante MD [address] [place] [address] PCP - General FAMILY PRACTICE 04/06/16 Piyush Pandey MD [place] Dictating Machine Transcriber CARDIOVASCULAR DISEASE 04/06/16 12/28/23 documented as of this encounter
--- OUTSIDE RECORDS SUMMARY | 2024-09-03 19:19 | XMS_ITS | Encounter Summary ---
Author Organization [facility] Address [address] [place] [address]. [place] [address] [place] [address] Care Team Providers Care Blow Molding Machine Tender Name Role Phone Piyush Pandey MD Unavailable UnavailMegan Rodriguez MD Primary Care Provider [phone] Sharmila Davis APRN, QC SCIENTIST-C Unavailable [phone] Linda Block MD Unavailable [phone] Encounter Details Date Type Department Care Team (Late st Contact Info) Description 03/29/[address] [facility] [address] [place] [address] Matias Mac MD [address] [place] [address] Social History Tobacco Use Types Packs/Day Years [...] Contact Info) Description 09/25/2024 2:00 PM GENERAL OPERATIONS MANAGER Appointment [facility] [address] [place] [address] Zayra Powell FNP [address] [place] [address] 10/16/2024 3:30 PM GENERAL OPERATIONS MANAGER Office Visit [facility] Gutierrez[address] [place] [phone] Brit Gonzáles MD [address] [place] [address] documented as of this encounter Visit Diagnoses Diagnosis Hematuria Hematuria, unspecified documented in this encounter Care Teams Blow Molding Machine Tender Relationship Specialty Start Date End Date Megan Infante MD [address] [place] [phone] PCP - General FAMILY PRACTICE 04/06/16 Piyush Pandey MD [place] Cashier Ticket Selling CARDIOVASCULAR DISEASE 04/06/16 12/28/23 Sharmila Davis, STRINGING MACHINE OPERATOR, QC SCIENTIST-C [address] [facility] [address] [place] [phone] NURSE PRACTITIONER 01/04/17 04/03/24 Linda Block MD 619 [facility] [address] [place] [phone] [place] Cashier Ticket Selling CLINICAL CARDIAC ELECTROPHYSIOLOGY 02/08/17 04/12/23 documented as of this encounter
--- OUTSIDE RECORDS SUMMARY | 2024-09-03 19:19 | XMS_ITS | Encounter Summary ---
Author Organization [facility] Address [address] [place] [address]. [place] [address] [place] [address] Care Team Providers Care Powder And Primer Canning Leader Name Role Phone Piyush Pandey MD Unavailable UnavailMegan Rodriguez MD Primary Care Provider [phone] Sharmila Davis APRN, DIRECTOR SALES AND MARKETING-C Unavailable Linda Block MD Unavailable [phone] Encounter Details Date Type Department Care Team (Late st Contact Info) Description 11/21/[address] [facility] [address] [place] [address] Matias Mac MD [address] [place] [address] Social History Tobacco Use Types Packs/Day Years [...] st Contact Info) Description 09/25/2024 2:00 PM ENGINE PILOT Appointment [facility] [address] [place] [address] Zayra Powell FNP [address] [place] [address] 10/16/2024 3:30 PM ENGINE PILOT Office Visit [facility] [address] [place] [address] Brit Gonzáles MD 619 [place] [address] documented as of this encounter Visit Diagnoses Diagnosis Chest pain Chest pain, unspecified documented in this encounter Care Teams Powder And Primer Canning Leader Relationship Specialty Start Date End Date Megan Infante MD [address] [place] [phone] PCP - General FAMILY PRACTICE 04/06/16 Piyush Pandey MD [place] Concrete Craftsman CARDIOVASCULAR DISEASE 04/06/16 12/28/23 Sharmila Davis, LEGAL AID, DIRECTOR SALES AND MARKETING-C 619 [facility] [address] [place] [phone] NURSE PRACTITIONER 01/04/17 04/03/24 Linda Block MD 619 [facility] [address] [place] [phone] [place] Concrete Craftsman CLINICAL CARDIAC ELECTROPHYSIOLOGY 02/08/17 04/12/23 documented as of this encounter
--- OUTSIDE RECORDS SUMMARY | 2024-09-03 19:19 | XMS_ITS | Encounter Summary ---
Author Organization [facility] Address [address] [place] [address]. [place] [address] [place] [address] Care Team Providers Care Insurance Healthcare Consultant Name Role Phone Unavailable Primary Care Provider Unavailabl e Encounter Details Date Type Department Care Team (Late st Contact Info) Description 08/22/2012 Abstract [facility] [address] [place] [address] Eun Landry MD Social History [...] Contact Info) Description 09/25/2024 2:00 PM LIFE ASSURANCE REPRESENTATIVE Appointment [facility] [address] [place] [address] Zayar Powell, CARE PROVIDER [address] [place] [address] 10/16/2024 3:30 PM LIFE ASSURANCE REPRESENTATIVE Office Visit [facility] [address] [phone] Brit Gonzáles MD 619 [place] [address] documented as of this encounter Procedures Procedure Name Priority Date/Time Associated Diagnosis Comments EXTERNAL EJECTION FRACTION Routine 08/22/2012 12:00 AM LIFE ASSURANCE REPRESENTATIVE documented in this encounter Results * EXTERNAL EJECTION FRACTION (08/22/2012 12:00 AM LIFE ASSURANCE REPRESENTATIVE) EJECTION FRACTION [facility] Anatomical Region Laterality Modality Other 08/22/2012 08/22/2012 Narrative 08/22/2012 12:00 AM LIFE ASSURANCE REPRESENTATIVE Cardiolite stress test, Piyush Pandey M.D. us Generic Conversion Md LANDRY OTHER Final R esult documented in this encounter Visit Diagnoses Not on filedocumented in this encounter
--- OUTSIDE RECORDS SUMMARY | 2024-09-03 19:19 | XMS_ITS | Encounter Summary ---
Author Organization [facility] Address [facility] [facility] [place] [address] [place] [address] Care Team Providers Care Test Director Name Role Phone Piyush Pandey MD Unavailable Unavailabl e Megan Infante MD Primary Care Provider [phone] Sharmila Davis APRN, SILVER RECOVERY OPERATOR-C Unavailable [phone] Linda Block MD Unavailable [phone] Encounter Details Date Type Department Care Team (Late st Contact Info) Description 04/11/2012 Abstract [facility] [address] [place] [address] Linda Block MD [address] [facility] [address] [place] [phone] Social History Tobacco Use Types Packs/Day Years [...] Contact Info) Description 09/25/2024 2:00 PM MANAGER STYLIST Appointment [facility] [address] [place] [address] Zayra Powell, ADMINISTRATIVE PROGRAM SPECIALIST [address] [place] [address] 10/16/2024 3:30 PM MANAGER STYLIST [facility] [address] [place] [phone] Brit Gonzáles MD 619 [place] [address] documented as of this encounter Visit Diagnoses Diagnosis Atrial fibrillation (CMS/HCC HHS/HCC) Atrial fibrillation documented in this encounter Care Teams Test Director Relationship Specialty Start Date End Date Megan Infante MD 1285 [facility] [place] [phone] PCP - General FAMILY PRACTICE 04/06/16 Piyush Pandey MD [place] Produce Runner CARDIOVASCULAR DISEASE 04/06/16 12/28/23 Sharmila Davis, EMERGENCY MANAGEMENT SYSTEM DIRECTOR, SILVER RECOVERY OPERATOR-C 619 [facility] [address] [place] [address] NURSE PRACTITIONER 01/04/17 04/03/24 Linda Block MD 619 [facility] [address] [place] [address] [place] Produce Runner CLINICAL CARDIAC ELECTROPHYSIOLOGY 02/08/17 04/12/23 documented as of this encounter
--- OUTSIDE RECORDS SUMMARY | 2024-09-03 19:19 | XMS_ITS | Encounter Summary ---
Author Organization [facility] Address [address] [place] [address]. [place] [address] [place] [address] Care Team Providers Care Television Tube Inspector Name Role Phone Piyush Pandey MD Unavailable UnavailMegan Rodriguez MD Primary Care Provider [phone] Sharmila Davis APRN, COUNTING MACHINE OPERATOR-C Unavailable Linda Block MD Unavailable [phone] Encounter Details Date Type Department Care Team (Late st Contact Info) Description 02/02/[address] [facility] [address] [place] [address] Matias Mac MD [address] [place] [address] Social History Tobacco Use Types Packs/Day Years [...] st Contact Info) Description 09/25/2024 2:00 PM HOG ROOM SUPERVISOR Appointment [facility] [address] [place] [address] Zayra Powell, SWING TENDER [address] [place] [address] 10/16/2024 3:30 PM HOG ROOM SUPERVISOR Office Visit [facility] [address] [place] [address] Brit Gonzáles MD 619 [place] [address] documented as of this encounter Visit Diagnoses Diagnosis Other symptoms involving cardiovascular system documented in this encounter Care Teams Television Tube Inspector Relationship Specialty Start Date End Date Megan Infante MD [address] [place] [address] PCP - General FAMILY PRACTICE 04/06/16 Piyush Pandey MD [place] Forestry Supervisor CARDIOVASCULAR DISEASE 04/06/16 12/28/23 Sharmila Davis, METAL TILE LATHER, COUNTING MACHINE OPERATOR-C 619 [facility] [address] [place] [phone] NURSE PRACTITIONER 01/04/17 04/03/24 Linda Block MD 619 [facility] [address] [place] [phone] [place] Forestry Supervisor CLINICAL CARDIAC ELECTROPHYSIOLOGY 02/08/17 04/12/23 documented as of this encounter
--- OUTSIDE RECORDS SUMMARY | 2024-09-03 19:19 | XMS_ITS | Encounter Summary ---
Author Organization [facility] Address [address] [place] [address]. [place] [address] [place] [address] Care Team Providers Care Head Swamper Name Role Phone Piyush Pandey MD Unavailable UnavailMegan Rodriguez MD Primary Care Provider [phone] Sharmila Davis APRN, ROAD PATCHER-C Unavailable [phone] Linda Block MD Unavailable [phone] Encounter Details Date Type Department Care Team (Late st Contact Info) Description 06/07/[address] [facility] [address] [place] [address] Matias Mac MD [address] [place] [address] Social History Tobacco Use Types Packs/Day Years [...] st Contact Info) Description 09/25/2024 2:00 PM SCREEN PRINT OPERATOR Appointment [facility] [address] [place] [address] Zayra Powell, MUSIC THERAPIST [address] [place] [address] 10/16/2024 3:30 PM SCREEN PRINT OPERATOR Office Visit [facility] [place] [phone] Brit Gonzáles MD 619 [place] [address] documented as of this encounter Visit Diagnoses Not on filedocumented in this encounter Care Teams Head Swamper Relationship Specialty Start Date End Date Megan Infante MD [address] [place] [address] PCP - General FAMILY PRACTICE 04/06/16 Piyush Pandey MD [place] Umbrella Finisher CARDIOVASCULAR DISEASE 04/06/16 12/28/23 Sharmila Davis, TIPPLE BOSS, ROAD PATCHER-C 619 [facility] [address] [place] [phone] NURSE PRACTITIONER 01/04/17 04/03/24 Linda Block MD 619 [facility] [address] [place] [address] [place] Umbrella Finisher CLINICAL CARDIAC ELECTROPHYSIOLOGY 02/08/17 04/12/23 documented as of this encounter
--- OUTSIDE RECORDS SUMMARY | 2024-09-03 19:19 | XMS_ITS | Encounter Summary ---
Author Organization [facility] Address [facility] [place] [address] [place] [address] Care Team Providers Care Negative Spotter Name Role Phone Piyush Pandey MD Unavailable Unavailabl e Megan Infante MD Primary Care Provider [phone] Sharmila Davis APRN PRIMARY PRODUCTS INSPECTORS-C Unavailable Marlee Vega MD Unavailable [phone] Jeff Grace MD Unavailable Encounter Details Date Type Department Care Team (Late st Contact Info) Description 04/16/2012 Abstract [facility] [address] [place] [address] , Generic Conversion, Social History Tobacco Use [...] st Contact Info) Description 09/25/2024 2:00 PM DO ALL OPERATOR Appointment [facility] [address] [place] [address] Zayra Powell, LEATHER BELT SHAPER [address] [place] [address] 10/16/2024 3:30 PM DO ALL OPERATOR Office Visit [facility] [address] [place] [address] Brit Gonzáles MD 619 [place] [address] documented as of this encounter Procedures Procedure Name Priority Date/Time Associated Diagnosis Comments ECG 12-LEAD Routine 04/16/2012 9:18 AM CDT documented in this encounter Results * ECG 12 lead (04/16/2012 9:18 AM CDT) 04/16/2012 9:18 AM CDT Narrative [facility] - 04/16/2012 10:16 AM CDT ? [facility] ? [address] [place], [place] ??[address] ? Test Date: ?2012-04-16 Pat Name: ? OBIE BETHANY ?Department: ?? 1 ? Room: ? 0404AA Gender: ? M ?Melangeur Operator: ?? DLP : ?1955 ? Requested By: MARLEE VEGA Order Number: [id number] ?Sage LANDRY: ?? Armand Lentz ? Measurements Intervals ?Noel ? Rate: ? 67 ? P: ?11 AK: ? 126 ?QRS: ?0 QRSD: ? 104 ?T: ?110 QT: ? 430 ? QTc: ?454 ? Interpretive Statements Normal sinus rhythm Minimal voltage criteria for LVH, may be normal variant Nonspecific ST and T wave abnormality Abnormal ECG Procedure Note Eun Landry MD - 04/19/2019 [facility] [address] [place] [address] Test Date: 2012-04-16 Pat Name: OBIE SIMS Department: 1 Room: [facility] Gender: M Melangeur Operator: DLP : 1955 Requested By: MARLEE VEGA Order Number: [id number] Reading MD: Armand Lentz Measurements Intervals Noel Rate: 67 P: 11 AK: 126 QRS: 0 QRSD: 104 T: 110 QT: 430 QTc: 454 Interpretive Statements Normal sinus rhythm Minimal voltage criteria for LVH, may be normal variant Nonspecific ST and T wave abnormality Abnormal ECG us Generic Conversion Md LANDRY ECG ORDERABLES Final R esult [facility] documented in this encounter Visit Diagnoses Not on filedocumented in this encounter Care Teams Negative Spotter Relationship Specialty Start Date End Date Megan Infante MD [address] [facility] [place] [phone] PCP - General FAMILY PRACTICE 04/06/16 Piyush Pandey MD [place] Senior Manufacturing Technician CARDIOVASCULAR DISEASE 04/06/16 12/28/23 Sharmila Davis APRN, PRIMARY PRODUCTS INSPECTORS-C [address] [facility] [address] [place] [phone] NURSE PRACTITIONER 01/04/17 04/03/24 Marlee Vega MD [address] [phone] [place] Senior Manufacturing Technician CLINICAL CARDIAC ELECTROPHYSIOLOGY 02/08/17 04/12/23 Jeff Grace MD [address] [facility] [address] [phone] Consulting Physician INTERNAL MEDICINE 02/20/19 3 documented as of this encounter
--- OUTSIDE RECORDS SUMMARY | 2024-09-03 19:19 | XMS_ITS | Encounter Summary ---
Author Organization [facility] Address [address] [place] [address]. [place] [address] [place] [address] Care Team Providers Care Animal Therapist Name Role Phone Piyush Pandey MD, Amy E MD Primary Care Provider [phone] Encounter Details Date Type Department Care Team (Late st Contact Info) Description 12/29/2010 Abstract [facility] [address] [place] [address] Eun Tovar MD Social History Tobacco [...] st Contact Info) Description 09/25/2024 2:00 PM EXPRESSIVE MUSIC THERAPIST Appointment [facility] [address] [place] [address] Zayra Powell, LIBRARIAN SPECIAL LIBRARY [address] [place] [address] 10/16/2024 3:30 PM EXPRESSIVE MUSIC THERAPIST Office Visit [facility] [address] [place] [phone] Brit Gonzáles MD [address] [place] [phone] documented as of this encounter Visit Diagnoses Not on filedocumented in this encounter Care Teams Animal Therapist Relationship Specialty Start Date End Date Megan Infante MD [address] [facility] [place] [address] PCP - General FAMILY PRACTICE 04/06/16 Piyush Pandey MD [place] Box Sealing Machine Feeder CARDIOVASCULAR DISEASE 04/06/16 12/28/23 documented as of this encounter
--- OUTSIDE RECORDS SUMMARY | 2024-09-03 19:19 | XMS_ITS | Encounter Summary ---
Author Organization [facility] Address [address] [place] [address]. [place] [address] [place] [address] Care Team Providers Care Package Reinspector Name Role Phone Piyush Pandey MD Unavailable Unavailabl e Megan Infante MD Primary Care Provider [phone] Sharmila Davis APRN LEAD CARGOMAN-C Unavailable Linda Block MD Unavailable [phone] Encounter Details Date Type Department Care Team (Late st Contact Info) Description 08/25/2011 Abstract [facility] [address] [place] [address] Piyush Pandey MD Social History Tobacco Use [...] st Contact Info) Description 09/25/2024 2:00 PM HOLISTIC SPECIALIST Appointment [facility] [address] [place] [address] Zayra Powell, ULTRASOUND TECHNOLOGIST [address] [place] [address] 10/16/2024 3:30 PM HOLISTIC SPECIALIST Office Visit [facility] [address] [place] [address] Brit Gonzáles MD 619 [place] [address] documented as of this encounter Visit Diagnoses Diagnosis Chest pain Chest pain, unspecified documented in this encounter Care Teams Package Reinspector Relationship Specialty Start Date End Date Megan Infante MD [address] [facility] [place] [phone] PCP - General FAMILY PRACTICE 04/06/16 Piyush Pandey MD [place] Supervising Nurse CARDIOVASCULAR DISEASE 04/06/16 12/28/23 Sharmila Davis, ECONOMICS LECTURER, LEAD CARGOMAN-C 619 [facility] [address] [phone] NURSE PRACTITIONER 01/04/17 04/03/24 Linda Block MD [address] [place] [address] [phone] [place] Supervising Nurse CLINICAL CARDIAC ELECTROPHYSIOLOGY 02/08/17 04/12/23 documented as of this encounter
--- OUTSIDE RECORDS SUMMARY | 2024-09-03 19:19 | XMS_ITS | Encounter Summary ---
Author Organization [facility] Address [address] [place] [address]. [place] [address] [place] [address] Care Team Providers Care Brick Paving Checker Name Role Phone Unavailable Primary Care Provider Unavailabl e Encounter Details Date Type Department Care Team (Late st Contact Info) Description 02/15/2013 Abstract [facility] 6[address] [place] [address] Eun Landry MD Social History [...] st Contact Info) Description 09/25/2024 2:00 PM PIPE CLEANING MACHINE OPERATOR Appointment [facility] [address] [place] [address] Zayra Powell, INSPECTOR LINE [address] [place] [address] 10/16/2024 3:30 PM PIPE CLEANING MACHINE OPERATOR Office Visit [facility] [address] [phone] Brit Gonzáles MD 619 [place] [address] documented as of this encounter Procedures Procedure Name Priority Date/Time Associated Diagnosis Comments LIPID PANEL Routine 02/15/2013 12:00 AM CDT documented in this encounter Results * LIPID PANEL (02/15/2013 12:00 AM CDT) TRIGLYCERIDES 99 0 - 150 mg/dl MEDINFORMATIX TO EPIC CONVERSION CHOLESTEROL 292 0 - 200 mg/dl MEDINFORMATIX TO EPIC CONVERSION HDL 71 40 - 59 mg/dl MEDINFORMATIX TO EPIC CONVERSION LDL CONVERSION 201 0 - 100 mg/dl MEDINFORMATIX TO EPIC CONVERSION CHOL/HDL RATIO 4.1 <4.0 (Calc) MEDINFORMATIX TO EPIC CONVERSION NON HDL CHOLESTEROL 221 0 - 130 mg/dL MEDINFORMATIX TO EPIC CONVERSION 02/15/2013 02/15/2013 us Generic Conversion Md [facility] Final R esult MEDINFORMATIX TO EPIC CONVERSION documented in this encounter Visit Diagnoses Not on filedocumented in this encounter
--- OUTSIDE RECORDS SUMMARY | 2024-09-03 19:19 | XMS_ITS | Encounter Summary ---
Author Organization [facility] Address [address] [place] [address]. [place] [address] [place] [address] Care Team Providers Care Washer Engineer Name Role Phone Unavailable Primary Care Provider Unavailabl e Encounter Details Date Type Department Care Team (Late st Contact Info) Description 10/16/2013 Abstract [facility] [address] [place] [address] Eun Tovar MD Social History [...] Contact Info) Description 09/25/2024 2:00 PM RESEARCH PROJECT COORDINATOR Appointment [facility] [address] [place] [address] Zayra Powell, SAFETY AND OCCUPATIONAL HEALTH MANAGER [address] [place] [address] 10/16/2024 3:30 PM RESEARCH PROJECT COORDINATOR Office Visit [facility] [address] [phone] Brit Gonzáles MD [address] [place] [address] documented as of this encounter Visit Diagnoses Not on filedocumented in this encounter
--- OUTSIDE RECORDS SUMMARY | 2024-09-03 19:19 | XMS_ITS | Encounter Summary ---
Author Organization [facility] Address [address] [place] [address]. [place] [address] [place] [address] Care Team Providers Care Recoater Name Role Phone Piyush Pandey MD Unavailable UnavailMegan Rodriguez MD Primary Care Provider [phone] Sharmila Davis APRN CARPET JACK-C Unavailable Linda Block MD Unavailable [phone] Encounter Details Date Type Department Care Team (Late st Contact Info) Description 12/17/2011 Abstract [facility] Diagnostic Imaging [address] [place] [address] Palomo Ponce MD [address] [place] [phone] Social History Tobacco Use Types Packs/Day Years [...] (Late Contact Info) Description 09/25/2024 2:00 PM METER RECORD CLERK Appointment [facility] [address] [place] [address] Zayra Powell, VICE PRESIDENT OF MARKETING [address] [place] [address] 10/16/2024 3:30 PM METER RECORD CLERK Office Visit [facility] [address] [place] [phone] Brit Gonzáles MD [address] [place] [address] documented as of this encounter Visit Diagnoses Diagnosis Follow-up examination, following other surgery documented in this encounter Care Teams Recoater Relationship Specialty Start Date End Date Megan Infante MD [address] [place] [phone] PCP - General FAMILY PRACTICE 04/06/16 Piyush Pandey MD [place] Pump Technician CARDIOVASCULAR DISEASE 04/06/16 12/28/23 Sharmila Davis APRN, CARPET JACK-C [address] [facility] [address] [place] [phone] NURSE PRACTITIONER 01/04/17 04/03/24 Linda Block MD 619 [facility] [address] [place] [address] [place] Pump Technician CLINICAL CARDIAC ELECTROPHYSIOLOGY 02/08/17 04/12/23 documented as of this encounter
--- OUTSIDE RECORDS SUMMARY | 2024-09-03 19:19 | XMS_ITS | Encounter Summary ---
Author Organization [facility] Address [address] [place] [address]. [place] [address] [place] [address] Care Team Providers Care Desktop Publishing Operator Name Role Phone Unavailable Primary Care Provider Unavailabl e Encounter Details Date Type Department Care Team (Late st Contact Info) Description 09/28/2013 Abstract [facility] AT [address] [address] Piyush Pandey MD Social History Tobacco Use [...] st Contact Info) Description 09/25/2024 2:00 PM DEICER FINISHER Appointment [facility] [address] [place] [address] Zayra Powell, TITLE LAWYER [address] [place] [address] 10/16/2024 3:30 PM DEICER FINISHER Office Visit [facility] [address] [place] [phone] Brit Gonzáles MD [address] [place] [address] documented as of this encounter Procedures Procedure Name Priority Date/Time Associated Diagnosis Comments THYROID PANEL Routine 09/28/2013 12:00 AM DEICER FINISHER documented in this encounter Results * THYROID PANEL (09/28/2013 12:00 AM DEICER FINISHER) FREE T4 1.12 0.8 - 1.8 mg/dl MEDINFORMATIX TO EPIC CONVERSION TSH 2.10 0.4 - 5.5 micro IU/ml MEDINFORMATIX TO EPIC CONVERSION 09/28/2013 09/28/2013 Narrative MEDINFORMATIX TO EPIC CONVERSION - 09/29/2013 11:34 AM DEICER FINISHER Reviewed by ADAN Sep ??7 2013 11:35:02:000AM us Generic Conversion Md [facility] Final R esult MEDINFORMATIX TO EPIC CONVERSION documented in this encounter Visit Diagnoses Not on filedocumented in this encounter
--- OUTSIDE RECORDS SUMMARY | 2024-09-03 19:19 | XMS_ITS | Encounter Summary ---
Author Organization [facility] Address [address] [place] [address]. [place] [address] [place] [address] Care Team Providers Care Analyst Sales Name Role Phone Piyush Pandey MD Unavailable UnavailMegan Rodriguez MD Primary Care Provider [phone] Sharmila Davis APRN BOX CAR CHECKER-C Unavailable Linda Block MD Unavailable [phone] Encounter Details Date Type Department Care Team (Late st Contact Info) Description 06/18/2011 Abstract [facility] Diagnostic Imaging [address] [place] [address] Palomo Ponce MD [address] [place] [phone] Social History Tobacco Use Types Packs/Day Years [...] (Late Contact Info) Description 09/25/2024 2:00 PM BANQUET COOK Appointment [facility] [address] [place] [address] Zayra Powell, GENERATOR WORKER [address] [place] [address] 10/16/2024 3:30 PM BANQUET COOK Office Visit [facility] [address] [place] [address] Brit Gonzáles MD [address] [place] [address] documented as of this encounter Visit Diagnoses Diagnosis Pain in joint, pelvic region and thigh documented in this encounter Care Teams Analyst Sales Relationship Specialty Start Date End Date Megan Infante MD [address] [place] [phone] PCP - General FAMILY PRACTICE 04/06/16 Piyush Pandey MD [place] Warehouse Worker 2Nd Shift CARDIOVASCULAR DISEASE 04/06/16 12/28/23 Sharmila Davis, DATA STEWARD, BOX CAR CHECKER-C 6[address] [facility] [address] [place] [phone] NURSE PRACTITIONER 01/04/17 04/03/24 Linda Block MD 619 [facility] [address] [place] [address] [place] Warehouse Worker 2Nd Shift CLINICAL CARDIAC ELECTROPHYSIOLOGY 02/08/17 04/12/23 documented as of this encounter
--- OUTSIDE RECORDS SUMMARY | 2024-09-03 19:19 | XMS_ITS | Encounter Summary ---
Author Organization [facility] Address [facility]6 [facility] [place] [address] [place] [address] Care Team Providers Care Chemistry Associate Name Role Phone Piyush Pandey MD Unavailable Unavailabl e Megan Infante MD Primary Care Provider [phone] Sharmila Davis APRN ARBORIST CLIMBER-C Unavailable Linda Vega MD Unavailable [phone] Jeff Grace MD Unavailable Encounter Details Date Type Department Care Team (Late st Contact Info) Description 04/12/2012 Abstract [facility] [address] [place] [address] , Generic Conversion, Social History Tobacco Use [...] Contact Info) Description 09/25/2024 2:00 PM SIGNAL CIRCUIT DESIGNER Appointment [facility] [address] [place] [address] Zayra Powell, OFFICE MANAGER RECEPTIONIST [address] [place] [address] 10/16/2024 3:30 PM SIGNAL CIRCUIT DESIGNER Office Visit [facility] [address] [place] [address] Brit Gonzáles MD 6[address] [place] [address] Pending Results Name Type Priority Associated Diagnoses Date /Time ECG 12 lead EKG-NonRad Routine 04/12/2012 5: 40 AM CDT documented as of this encounter Procedures Procedure Name Priority Date/Time Associated Diagnosis Comments ECG 12-LEAD Routine 04/12/2012 8:00 AM CDT ECG 12-LEAD Routine 04/12/2012 5:40 AM CDT Procedure Note - 04/12/2012 5:40 AM CDTThis note is in progress. [facility] Test Date: 2012-04-12 Pat Name: OBIE SIMS Department: -1 Room: [address] [place] [address] Gender: M Education Professional: : 1955 Requested By: Linda Vega Order Number: [id number] Reading MD: Armand Lentz Measurements Intervals [place] Rate: 60 P: [place]: QRS: -7 QRSD: 112 T: 126 QT: 464 QTc: 464 Interpretive Statements Atrial fibrillation ST & T wave abnormality, consider lateral ischemia or digitalis effect Prolonged QT Abnormal ECG documented in this encounter Results * ECG 12 lead (04/12/2012 8:00 AM CDT) 04/12/2012 8:[address] [facility] RAD - 04/12/2012 6:59 PM CDT ? [facility] ? [address] [place], [place] ??[address] ? Test Date: ?2012-04-12 Pat Name: ? OBIE SIMS ?Department: ?? 1 ? Room: ? 0404AA Gender: ? M ?Education Professional: ?? DMS : ?1955 ? Requested By: LINDA VEGA Order Number: [id number] ?Reading MD: ?? Armand Cliffordti ? Measurements Intervals ?[place] ? Rate: ? 70 ? P: ? [place]: ?QRS: ?-9 QRSD: ? 106 ?T: ?127 QT: ? 452 ? QTc: ?488 ? Interpretive Statements Atrial fibrillation Incomplete left bundle branch block Minimal voltage criteria for LVH, may be normal variant ST & T wave abnormality, consider lateral ischemia or digitalis effect Prolonged QT Abnormal ECG Procedure Note , Generic ConversionMD - 04/19/2019 [facility] [address] [place] [address] Test Date: 2012-04-12 Pat Name: OBIE SIMS Department: 1 Room: [facility] Gender: M Education Professional: MILLER : 1955 Requested By: LINDA VEGA Order Number: [id number] Reading MD: Armand Lentz Measurements Intervals [place] Rate: 70 P: [place]: QRS: -9 QRSD: 106 T: 127 QT: 452 QTc: 488 Interpretive Statements Atrial fibrillation Incomplete left bundle branch block Minimal voltage criteria for LVH, may be normal variant ST & T wave abnormality, consider lateral ischemia or digitalis effect Prolonged QT Abnormal ECG us Generic Conversion Md [facility] ECG ORDERABLES Final R esult [facility] documented in this encounter Visit Diagnoses Not on filedocumented in this encounter Care Teams Chemistry Associate Relationship Specialty Start Date End Date Megan Infnate MD [address] [facility] [place] [phone] PCP - General FAMILY PRACTICE 04/06/16 Piyush Pandey MD [place] Character Impersonator CARDIOVASCULAR DISEASE 04/06/16 12/28/23 Sharmila Davis APRN, ARBORIST CLIMBER-C 619 [facility] [address] [place] [address] NURSE PRACTITIONER 01/04/17 04/03/24 Linda Vega MD 619 [facility] [address] [place] [phone] [place] Character Impersonator CLINICAL CARDIAC ELECTROPHYSIOLOGY 02/08/17 04/12/23 Jeff Grace MD [address] [place] [address] Consulting Physician INTERNAL MEDICINE 02/20/19 3 documented as of this encounter
--- OUTSIDE RECORDS SUMMARY | 2024-09-03 19:19 | XMS_ITS | Encounter Summary ---
Author Organization [facility] Address [address] [place] [address]. [place] [address] [place] [address] Care Team Providers Care Engraver Name Role Phone Piyush Pandey MD Unavailable UnavailMegan Rodriguez MD Primary Care Provider [phone] Sharmila Davis APRN MANUFACTURING PLANT MANAGER-C Unavailable Linda Block MD Unavailable [phone] Encounter Details Date Type Department Care Team (Late st Contact Info) Description 11/04/[address] [facility] [address] [place] [address] Palomo Ponce MD [address] [place] [phone] Social History Tobacco Use Types Packs/Day [...] st Contact Info) Description 09/25/2024 2:00 PM DUPLICATING MACHINE OPERATOR Appointment [facility] [address] [place] [address] Zayra Powell FNP [address] [place] [address] 10/16/2024 3:30 PM DUPLICATING MACHINE OPERATOR Office Visit [facility] [address] [place] [phone] Brit Gonzáles MD [address] [place] [address] documented as of this encounter Visit Diagnoses Diagnosis Primary localized osteoarthrosis, pelvic region and thigh documented in this encounter Care Teams Engraver Relationship Specialty Start Date End Date Megan Infante MD [address] [place] [phone] PCP - General FAMILY PRACTICE 04/06/16 Piyush Pandey MD [place] Quantity Surveyor CARDIOVASCULAR DISEASE 04/06/16 12/28/23 Sharmila Davis APRN, MANUFACTURING PLANT MANAGER-C 619 [facility] [address] [place] [address] NURSE PRACTITIONER 01/04/17 04/03/24 Linda Block MD 619 [facility] [address] [place] [address] [place] Quantity Surveyor CLINICAL CARDIAC ELECTROPHYSIOLOGY 02/08/17 04/12/23 documented as of this encounter
--- OUTSIDE RECORDS SUMMARY | 2024-09-03 19:19 | XMS_ITS | Encounter Summary ---
Author Organization [facility] Address [address] [place] [address]. [place] [address] [place] [address] Care Team Providers Care Casing Crew Name Role Phone Unavailable Primary Care Provider Unavailabl e Encounter Details Date Type Department Care Team (Late st Contact Info) Description 03/16/2013 Abstract [facility] AT [address] [address] Eun Tovar MD Social History [...] Contact Info) Description 09/25/2024 2:00 PM SENIOR TRAINER Appointment [facility] [address] [place] [address] Zayra Powell, FIBERGLASS MODEL MAKER [address] [place] [address] 10/16/2024 3:30 PM SENIOR TRAINER Office Visit [facility] [address] [phone] Brit Gonzáles MD [address] [place] [address] documented as of this encounter Visit Diagnoses Not on filedocumented in this encounter
--- OUTSIDE RECORDS SUMMARY | 2024-09-03 19:19 | XMS_ITS | Encounter Summary ---
Author Organization [facility] Address [address] [place] [address]. [place] [address] [place] [address] Care Team Providers Care Robotic Toy Inventor Name Role Phone Piyush Pandey MD Unavailable UnavailMegan Rodriguez MD Primary Care Provider [phone] Sharmila Davis APRN, TANKER TRUCK DRIVER-C Unavailable [phone] Linda Bolck MD Unavailable [phone] Encounter Details Date Type Department Care Team (Late st Contact Info) Description 09/09/[address] [facility] [address] [place] [address] Matias Mac MD [address] [place] [address] Social History Tobacco Use Types Packs/Day Years [...] Contact Info) Description 09/25/2024 2:00 PM PROJECT MANAGEMENT MANAGER Appointment [facility] [address] [place] [address] Zayra Powell FNP [address] [place] [address] 10/16/2024 3:30 PM PROJECT MANAGEMENT MANAGER Office Visit [facility] [address] [place] [address] Brit Gonzáles MD [address]19 [place] [address] documented as of this encounter Visit Diagnoses Diagnosis Aortic valve disorder Aortic valve disorders documented in this encounter Care Teams Robotic Toy Inventor Relationship Specialty Start Date End Date Megan Infante MD [address] [place] [address] PCP - General FAMILY PRACTICE 04/06/16 Piyush Pandey MD [place] Corporate Executive Chef CARDIOVASCULAR DISEASE 04/06/16 12/28/23 Sharmila Davis, COLLAR FOLDER OPERATOR, TANKER TRUCK DRIVER-C 619 [facility] [address] [place] [phone] NURSE PRACTITIONER 01/04/17 04/03/24 Linda Block MD 619 [facility] [address] [place] [phone] [place] Corporate Executive Chef CLINICAL CARDIAC ELECTROPHYSIOLOGY 02/08/17 04/12/23 documented as of this encounter
--- OUTSIDE RECORDS SUMMARY | 2024-09-03 19:19 | XMS_ITS | Encounter Summary ---
Author Organization [facility] Address [facility]6 [facility] [place] [address] [place] [address] Care Team Providers Care Machinist Outside Name Role Phone Piyush Pandey MD Unavailable Unavailabl e Megan Infante MD Primary Care Provider [phone] Sharmila Davis APRN, HAIRMASTERS MANAGER-C Unavailable [phone] Linda Block MD Unavailable [phone] Encounter Details Date Type Department Care Team (Late st Contact Info) Description 03/23/[address] [facility] [address] [place], [place] [address] Linda Block MD [address] [facility] [address] [place] [phone] Social History Tobacco Use Types Packs/Day Years [...] st Contact Info) Description 09/25/2024 2:00 PM UTILITY FORESTER Appointment [facility] [address] [place] [address] Zayra Powell, STONE POLISHER [address] [place] [address] 10/16/2024 3:30 PM UTILITY FORESTER [facility] [address] [place] [address] Brit Gonzáles MD [address]19 [place] [address] documented as of this encounter Visit Diagnoses Diagnosis Shortness of breath documented in this encounter Care Teams Machinist Outside Relationship Specialty Start Date End Date Megan Infante MD [address] [place] [phone] PCP - General FAMILY PRACTICE 04/06/16 Piyush Pandey MD [place] Quality Control Coordinator CARDIOVASCULAR DISEASE 04/06/16 12/28/23 Sharmila Davis, POLICY MANAGER, HAIRMASTERS MANAGER-C 619 [facility] [address] [place] [address] NURSE PRACTITIONER 01/04/17 04/03/24 Linda Block MD 619 [facility] [address] [place] [address] [place] Quality Control Coordinator CLINICAL CARDIAC ELECTROPHYSIOLOGY 02/08/17 04/12/23 documented as of this encounter
--- OUTSIDE RECORDS SUMMARY | 2024-09-03 19:19 | XMS_ITS | Encounter Summary ---
Author Organization [facility] Address [address] [place] [address]. [place] [address] [place] [address] Care Team Providers Care Grocery Store Associate Name Role Phone Unavailable Primary Care Provider Unavailabl e Encounter Details Date Type Department Care Team (Late st Contact Info) Description 04/17/2012 Abstract [facility] AT [facility] [address] [place] [address] Eun Landry MD Social History [...] st Contact Info) Description 09/25/2024 2:00 PM HEMMER AUTOMATIC Appointment [facility] [address] [place] [address] Zayra Powell, FURNITURE SANDER [address] [place] [address] 10/16/2024 3:30 PM HEMMER AUTOMATIC Office Visit [facility] [address] [place] [phone] Brit Gonzáles MD 619 [place] [address] documented as of this encounter Procedures Procedure Name Priority Date/Time Associated Diagnosis Comments ECG 12-LEAD Routine 04/17/2012 8:26 AM CDT documented in this encounter Results * ECG 12 lead (04/17/2012 8:26 AM CDT) 04/17/2012 8:26 AM CDT Narrative [facility] - 04/17/2012 1:26 PM CDT ? [facility] ? [address] [place], [place] ??[address] ? Test Date: ?2012-04-17 Pat Name: ? OBIE ISMS ?Department: ?? 1 ? Room: ? 0404AA Gender: ? M ?Armored Transport Service Manager: ?? MIRLANDE HERRON: ?1955 ? Requested By: MARLEE VEGA Order Number: [id number] ?Reading MD: ?? Piyush Pandey ? Measurements Intervals ?[place] ? Rate: ? 59 ? P: ?26 RI: ? 194 ?QRS: ?-21 QRSD: ? 104 ?T: ?98 QT: ? 446 ? QTc: ?441 ? Interpretive Statements Sinus bradycardia with probable ventricular complex Left ventricular hypertrophy with QRS widening and repolarization abnormality Procedure Note , Generic ConversionMD - 04/19/2019 [place] [address] [place] [address] Test Date: 2012-04-17 Pat Name: OBIE SIMS Department: 1 Room: [facility] Gender: M Armored Transport Service Manager: MIRLANDE : 1955 Requested By: MARLEE VEGA Order Number: [id number] Reading MD: Piyush Pandey Measurements Intervals [place] Rate: 59 P: 26 RI: 194 QRS: -21 QRSD: 104 T: 98 QT: 446 QTc: 441 Interpretive Statements Sinus bradycardia with probable ventricular complex Left ventricular hypertrophy with QRS widening and repolarizationabnormality us Generic Conversion Md LANDRY ECG ORDERABLES Final R esult [facility] documented in this encounter Visit Diagnoses Not on filedocumented in this encounter
--- OUTSIDE RECORDS SUMMARY | 2024-09-03 19:19 | XMS_ITS | Encounter Summary ---
Author Organization [facility] Address [address] [place] [address]. [place] [address] [place] [address] Care Team Providers Care Jackscrew Worker Name Role Phone Piyush Pandey MD Unavailable UnavailMegan Rodriguez MD Primary Care Provider [phone] Sharmila Davis APRN, REFRIGERATING ENGINEER-C Unavailable Linda Block MD Unavailable [phone] Encounter Details Date Type Department Care Team (Late st Contact Info) Description 01/07/[address] [facility] [address] [place] [address] Matias Mac MD [address] [place] [address] Social History Tobacco Use Types Packs/Day Years [...] st Contact Info) Description 09/25/2024 2:00 PM TIME CLERK [address] [facility] [address] [place] [address] Zayra Powell FNP [address] [place] [address] [address] 10/16/2024 3:30 PM TIME CLERK Office Visit [facility] [address] [place] [phone] Brit Gonzáles MD [address] [place] [address] documented as of this encounter Visit Diagnoses Not on filedocumented in this encounter Care Teams Jackscrew Worker Relationship Specialty Start Date End Date Megan Infante MD [address] [place] [address] PCP - General FAMILY PRACTICE 04/06/16 Piyush Pandey MD [place] Induction Machine Operator CARDIOVASCULAR DISEASE 04/06/16 12/28/23 Sharmila Davis, SURVEY ASSOCIATE, REFRIGERATING ENGINEER-C 619 [facility] [address] [place] [phone] NURSE PRACTITIONER 01/04/17 04/03/24 Linda Block MD 619 [facility] [address] [place] [address] [place] Induction Machine Operator CLINICAL CARDIAC ELECTROPHYSIOLOGY 02/08/17 04/12/23 documented as of this encounter
--- OUTSIDE RECORDS SUMMARY | 2024-09-03 19:19 | XMS_ITS | Encounter Summary ---
Author Organization [facility] Address [facility]6 [facility] [place] [address] [place] [address] Care Team Providers Care Manager Quality Name Role Phone Piyush Pandey MD Unavailable Unavailabl Megan Leos MD Primary Care Provider [phone] Sharmila Davis APRN CLIP AND HANGER ATTACHER-C Unavailable Linda Block MD Unavailable [phone] Encounter Details Date Type Department Care Team (Late st Contact Info) Description 03/17/2012 Abstract [facility] - [facility] [address] [place] [address] Piyush Pandey MD Social History Tobacco Use [...] Contact Info) Description 09/25/2024 2:00 PM BUNCHER OPERATOR Appointment [facility] [address] [place] [address] Zayra Powell, TOWNSHIP CLERK [address] [place] [address] 10/16/2024 3:30 PM BUNCHER OPERATOR Office Visit [facility] [address] [place] [phone] Brit Gonzáles MD [address] [place] [address] documented as of this encounter Visit Diagnoses Diagnosis Aortic valve disorder Aortic valve disorders documented in this encounter Care Teams Manager Quality Relationship Specialty Start Date End Date Megan Infante MD [address] [place] [phone] PCP - General FAMILY PRACTICE 04/06/16 Piyush Pandey MD [place] International Coordinator CARDIOVASCULAR DISEASE 04/06/16 12/28/23 Sharmila Davis, CHEMICAL DEPENDENCY NURSE, CLIP AND HANGER ATTACHER-C 619 [facility] [address] [place] [address] NURSE PRACTITIONER 01/04/17 04/03/24 Linda Block MD 619 [facility] [address] [place] [address] [place] International Coordinator CLINICAL CARDIAC ELECTROPHYSIOLOGY 02/08/17 04/12/23 documented as of this encounter
--- OUTSIDE RECORDS SUMMARY | 2024-09-03 19:19 | XMS_ITS | Encounter Summary ---
Author Organization [facility] Address [address] [place] [address]. [place] [address] [place] [address] Care Team Providers Care Manager Purchasing Name Role Phone Piyush Pandey MD Unavailable UnavailMegan Rodriguez MD Primary Care Provider [phone] Sharmila Davis APRN, GYROSCOPIC INSTRUMENT TESTER-C Unavailable Linda Block MD Unavailable [phone] Encounter Details Date Type Department Care Team (Late st Contact Info) Description 09/11/[address] [facility] [address] [place] [address] Matias Mac MD [address] [place] [address] Social History Tobacco Use Types Packs/Day Years [...] st Contact Info) Description 09/25/2024 2:00 PM SOA INTEGRATION ARCHITECT Appointment [facility] [address] [place] [address] Zayra Powell FNP [address] [place] [address] 10/16/2024 3:30 PM SOA INTEGRATION ARCHITECT Office Visit [facility] [address] [place] [address] Brit Gonzáles MD 619 [place] [address] documented as of this encounter Visit Diagnoses Diagnosis Aortic valve disorder Aortic valve disorders documented in this encounter Care Teams Manager Purchasing Relationship Specialty Start Date End Date Megan Infante MD [address] [place] [address] PCP - General FAMILY PRACTICE 04/06/16 Piyush Pandey MD [place] Automatic Washer Mechanic CARDIOVASCULAR DISEASE 04/06/16 12/28/23 Sharmila Davis, MANAGER OF EXHIBITIONS AND COLLECTIONS, GYROSCOPIC INSTRUMENT TESTER-C 619 [facility] 4P57 [place] [address] NURSE PRACTITIONER 01/04/17 04/03/24 Linda Blcok MD 619 [facility] [address] [place] [address] [place] Automatic Washer Mechanic CLINICAL CARDIAC ELECTROPHYSIOLOGY 02/08/17 04/12/23 documented as of this encounter
--- OUTSIDE RECORDS SUMMARY | 2024-09-03 19:19 | XMS_ITS | Encounter Summary ---
Author Organization [facility] Address [address] [place] [address]. [place] [address] [place] [address] Care Team Providers Care Operations Asst Name Role Phone Piyush Pandey MD, Amy E MD Primary Care Provider [phone] Encounter Details Date Type Department Care Team (Late st Contact Info) Description 01/29/2011 Scan [facility] AT [address] [address] Eun Tovar MD Social History [...] st Contact Info) Description 09/25/2024 2:00 PM PIE DOUGH ROLLER Appointment [facility] [address] [place] [address] Zayra Powell, FILING MACHINE OPERATOR [address] [place] [address] 10/16/2024 3:30 PM PIE DOUGH ROLLER Office Visit [facility] [address] [place] [phone] Brit Gonzáles MD [address] [place] [address] documented as of this encounter Visit Diagnoses Not on filedocumented in this encounter Care Teams Operations Asst Relationship Specialty Start Date End Date Megan Infante MD [address] [place] [address] PCP - General FAMILY PRACTICE 04/06/16 Piyush Pandey MD [place] Sawmill Supervisor CARDIOVASCULAR DISEASE 04/06/16 12/28/23 documented as of this encounter
--- OUTSIDE RECORDS SUMMARY | 2024-09-03 19:19 | XMS_ITS | Encounter Summary ---
Author Organization [facility] Address [address] [place] [address]. [place] [address] [place] [address] Care Team Providers Care Planning Associate Name Role Phone Piyush Pandey MD, Amy E MD Primary Care Provider [phone] Encounter Details Date Type Department Care Team (Late st Contact Info) Description 11/13/2011 Scan [facility] AT [address] [address] Eun Tovar MD Social History [...] st Contact Info) Description 09/25/2024 2:00 PM MANUFACTURING PLANT TECHNICIAN Appointment [facility] [address] [place] [address] Zayra Powell, BIOMETRICS ANALYST [address] [place] [address] 10/16/2024 3:30 PM MANUFACTURING PLANT TECHNICIAN Office Visit [facility] [address] [place] [phone] Brit Gonzáles MD [address] [place] [address] documented as of this encounter Visit Diagnoses Not on filedocumented in this encounter Care Teams Planning Associate Relationship Specialty Start Date End Date Megan Infante MD [address] [facility] [place] [address] PCP - General FAMILY PRACTICE 04/06/16 Piyush Pandey MD [place] Magneto Repairer CARDIOVASCULAR DISEASE 04/06/16 12/28/23 documented as of this encounter
--- OUTSIDE RECORDS SUMMARY | 2024-09-03 19:19 | XMS_ITS | Encounter Summary ---
Author Organization [facility] Address [address] [place] [address]. [place] [address] [place] [address] Care Team Providers Care Electric Lift Truck Driver Name Role Phone Piyush Pandey MD Unavailable UnavailMegan Rodriguez MD Primary Care Provider [phone] Sharmila Davis APRN QUARTER SEAMER-C Unavailable Linda Block MD Unavailable [phone] Encounter Details Date Type Department Care Team (Late st Contact Info) Description 07/30/2011 Abstract [facility] 725 [place] [address] Palomo Ponce MD [address] [place] [phone] Social History Tobacco Use Types Packs/Day Years [...] (Late Contact Info) Description 09/25/2024 2:00 PM EXPERIENCE DESIGNER Appointment [facility] [address] [place] [address] Zayra Powell, OTOLARYNGOLOGY SURGEON [address] [place] [address] 10/16/2024 3:30 PM EXPERIENCE DESIGNER Office Visit [facility] [address] [place] [address] Brit Gonzáles MD 619 [place] [address] documented as of this encounter Visit Diagnoses Diagnosis Pain in joint, pelvic region and thigh documented in this encounter Care Teams Electric Lift Truck Driver Relationship Specialty Start Date End Date Megan Infante MD [address] [place] [phone] PCP - General FAMILY PRACTICE 04/06/16 Piyush Pandey MD [place] Roof Plumber CARDIOVASCULAR DISEASE 04/06/16 12/28/23 Sharmila Davis, CORNICE UPHOLSTERER, QUARTER SEAMER-C 619 [facility] [address] [place] [address] NURSE PRACTITIONER 01/04/17 04/03/24 Linda Block MD 619 [facility] [address] [place] [address] [place] Roof Plumber CLINICAL CARDIAC ELECTROPHYSIOLOGY 02/08/17 04/12/23 documented as of this encounter
--- OUTSIDE RECORDS SUMMARY | 2024-09-03 19:19 | XMS_ITS | Encounter Summary ---
Author Organization [facility] Address [address] [place] [address]. [place] [address] [place] [address] Care Team Providers Care Finisher Cold Rolling Name Role Phone Piyush Pandey MD Unavailable UnavailMegan Rodriguez MD Primary Care Provider [phone] Sharmila Davis APRN COLOR WEIGHER-C Unavailable Linda Block MD Unavailable [phone] Encounter Details Date Type Department Care Team (Late st Contact Info) Description 11/19/2011 Abstract [facility] 725 [place] [address] Palomo Ponce MD [address] [place] [phone] Social History Tobacco Use Types Packs/Day Years [...] (Late Contact Info) Description 09/25/2024 2:00 PM BUILDING SUPPLIES SALESPERSON RETAIL Appointment [facility] [address] [place] [address] Zayra Powell, ECONOMIC ADVISER [address] [place] [address] 10/16/2024 3:30 PM BUILDING SUPPLIES SALESPERSON RETAIL Office Visit [facility] [address] [place] [address] Brit Gonzáles MD 619 [place] [address] documented as of this encounter Visit Diagnoses Diagnosis Pain in joint, pelvic region and thigh documented in this encounter Care Teams Finisher Cold Rolling Relationship Specialty Start Date End Date Megan Infante MD [address] [place] [phone] PCP - General FAMILY PRACTICE 04/06/16 Piyush Pandey MD [place] Senior Sales Operations Analyst CARDIOVASCULAR DISEASE 04/06/16 12/28/23 Sharmila Davis, HEAD BANQUET WAITRESS, COLOR WEIGHER-C 619 [facility] [address] [place] [address] NURSE PRACTITIONER 01/04/17 04/03/24 Linda Block MD 619 [facility] [address] [place] [address] [place] Senior Sales Operations Analyst CLINICAL CARDIAC ELECTROPHYSIOLOGY 02/08/17 04/12/23 documented as of this encounter
--- OUTSIDE RECORDS SUMMARY | 2024-09-03 19:19 | XMS_ITS | Encounter Summary ---
Author Organization [facility] Address [address] [place] [address]. [place] [address] [place] [address] Care Team Providers Care Certified Medical Coding Specialist Name Role Phone Piyush Pandey MD Unavailable UnavailMegan Rodriguez MD Primary Care Provider [phone] Sharmila Davis APRN, PROFESSOR OF EARLY CHILDHOOD EDUCATION-C Unavailable Linda Block MD Unavailable [phone] Encounter Details Date Type Department Care Team (Late st Contact Info) Description 01/29/[address] [facility] [address] [place] [address] Matias Mac MD [address] [place] [address] Social History Tobacco Use Types Packs/Day Years [...] Contact Info) Description 09/25/2024 2:00 PM MANAGER RECRUITING Appointment [facility] [address] [place] [address] Zayra Powell, STATISTICAL ANALYST [address] [place] [address] 10/16/2024 3:30 PM MANAGER RECRUITING Office Visit [facility] [address] [place] [phone] Brit Gonzáles MD 619 [place] [address] documented as of this encounter Visit Diagnoses Diagnosis Aortic valve disorder Aortic valve disorders documented in this encounter Care Teams Certified Medical Coding Specialist Relationship Specialty Start Date End Date Megan Infante MD [address] [place] [address] PCP - General FAMILY PRACTICE 04/06/16 Piyush Pandey MD [place] Carriage Feeder CARDIOVASCULAR DISEASE 04/06/16 12/28/23 Sharmila Davis, COLLAR STAY FUSER TENDER, PROFESSOR OF EARLY CHILDHOOD EDUCATION-C [address] [facility] [address] [place] [phone] NURSE PRACTITIONER 01/04/17 04/03/24 Linda Block MD 619 [facility] [address] [place] [address] [place] Carriage Feeder CLINICAL CARDIAC ELECTROPHYSIOLOGY 02/08/17 04/12/23 documented as of this encounter
--- OUTSIDE RECORDS SUMMARY | 2024-09-03 19:19 | XMS_ITS | Encounter Summary ---
Author Organization [facility] Address [address] [place] [address]. [place] [address] [place] [address] Care Team Providers Care Automatic Seamer Name Role Phone Unavailable Primary Care Provider Unavailabl e Encounter Details Date Type Department Care Team (Late st Contact Info) Description 03/20/2013 Abstract [facility] 619 [place] [address] Eun Tovar MD Social History [...] st Contact Info) Description 09/25/2024 2:00 PM DRAFTER CASTINGS Appointment [facility] [address] [place] [address] Zayra Powell, SEE SUPERVISOR [address] [place] [address] 10/16/2024 3:30 PM DRAFTER CASTINGS Office Visit [facility] [address] [phone] Brit Gonzáles MD 619 [place] [address] documented as of this encounter Visit Diagnoses Not on filedocumented in this encounter
--- OUTSIDE RECORDS SUMMARY | 2024-09-03 19:19 | XMS_ITS | Encounter Summary ---
Author Organization [facility] Address [facility] [place] [address] [place] [address] Care Team Providers Care Transit Worker Name Role Phone Piyush Pandey MD Unavailable Unavailabl e Megan Infante MD Primary Care Provider [phone] Sharmila Davis APRN, YARD COORDINATOR-C Unavailable [phone] Linda Vega MD Unavailable [phone] Encounter Details Date Type Department Care Team (Late st Contact Info) Description 11/21/2013 Abstract [facility] [address] [place] [address] Linda Vega MD 619 [address] [facility] [address] [place] [address] Social History Tobacco Use Types Packs/Day Years [...] st Contact Info) Description 09/25/2024 2:00 PM TANK CAR CLEANER Appointment [facility] [address] [place] [address] Zayra Powell, KINESIOLOGY INTERNSHIP [address] [place] [address] 10/16/2024 3:30 PM TANK CAR CLEANER Office Visit [facility] [place] [phone] Brit Gonzáles MD 619 [place] [address] documented as of this encounter Procedures Procedure Name Priority Date/Time Associated Diagnosis Comments ECG 12-LEAD Routine 11/21/2013 9:48 AM CDT documented in this encounter Results * ECG 12 lead (11/21/2013 9:48 AM CDT) 11/21/2013 9:48 AM CDT Narrative [facility] - 11/21/2013 2:57 PM CDT ? [facility] ? [address] [place], [place] ??[address] ? Test Date: ?2013-11-21 Pat Name: ? OBIE SIMS ?Department: ?? 1 ? Room: ? Gender: ? M ?Magnetic Tape Composer Operator: ?? dms : ?1955 ? Requested By: LINDA VEGA Order Number: [id number] ? Sage LANDRY: ?? Nico Phelps ? Measurements Intervals ?[place] ? Rate: ? 67 ? P: ?13 WA: ? 168 ?QRS: ?-14 QRSD: ? 129 ?T: ?136 QT: ? 453 ? QTc: ?468 ? Interpretive Statements SINUS RHYTHM LEFT VENTRICULAR HYPERTROPHY AND ST-T CHANGE Procedure Note Eun Landry MD - 04/19/2019 [facility] [address] [place] [address] Test Date: 2013-11-21 Pat Name: OBIE SIMS Department: 1 Room: Gender: M Magnetic Tape Composer Operator: [facility] : 1955 Requested By: LINDA VEGA Order Number: [id number] Reading : Nico Phelps Measurements Intervals [place] Rate: 67 P: 13 WA: 168 QRS: -14 QRSD: 129 T: 136 QT: 453 QTc: 468 Interpretive Statements SINUS RHYTHM LEFT VENTRICULAR HYPERTROPHY AND ST-T CHANGE us Generic Conversion Md LANDRY ECG ORDERABLES Final R esult [facility] documented in this encounter Visit Diagnoses Diagnosis Atrial fibrillation (CMS/HCC HHS/HCC) Atrial fibrillation documented in this encounter Care Teams Transit Worker Relationship Specialty Start Date End Date Megan Infante MD 1285 [facility] [place] [address] PCP - General FAMILY PRACTICE 04/06/16 Piyush Pandey MD [place] Career Development Engineer CARDIOVASCULAR DISEASE 04/06/16 12/28/23 Sharmila Davis, FISCAL CLERK, YARD COORDINATOR-C [address] [facility] [address] [place] [address] NURSE PRACTITIONER 01/04/17 04/03/24 Linda Vega MD 619 [facility] [address] [place] [address] [place] Career Development Engineer CLINICAL CARDIAC ELECTROPHYSIOLOGY 02/08/17 04/12/23 documented as of this encounter
--- OUTSIDE RECORDS SUMMARY | 2024-09-03 19:19 | XMS_ITS | Encounter Summary ---
Author Organization [facility] Address [address] [place] [address]. [place] [address] [place] [address] Care Team Providers Care Head Machinist Name Role Phone Piyush Pandey MD Unavailable UnavailMegan Rodriguez MD Primary Care Provider [phone] Sharmila Davis APRN, CONCRETE MIXER OPERATOR-C Unavailable Linda Block MD Unavailable [phone] Encounter Details Date Type Department Care Team (Late st Contact Info) Description 04/02/[address] [facility] [place] [address] [place] [address] Matias Mac MD [address] [place] [address] Social History Tobacco Use Types Packs/Day Years [...] st Contact Info) Description 09/25/2024 2:00 PM CEREAL POPPER Appointment [facility] [address] [place] [address] Zayra Powell, SCREENING TECHNICIAN [address] [place] [address] 10/16/2024 3:30 PM CEREAL POPPER Office Visit [facility] Gutierrez[address] [place] [address] Brit Gonzáles MD 619 [place] [address] documented as of this encounter Visit Diagnoses Diagnosis Hematuria Hematuria, unspecified documented in this encounter Care Teams Head Machinist Relationship Specialty Start Date End Date Megan Infante MD [address] [place] [address] PCP - General FAMILY PRACTICE 04/06/16 Piyush Pandey MD [place] Workforce Services Representative CARDIOVASCULAR DISEASE 04/06/16 12/28/23 Sharmila Davis, FINANCIAL ANALYSIS MANAGER, CONCRETE MIXER OPERATOR-C 619 [facility] [address] [place] [address] NURSE PRACTITIONER 01/04/17 04/03/24 Linda Block MD 619 [facility] 47 [place] [address] [place] Workforce Services Representative CLINICAL CARDIAC ELECTROPHYSIOLOGY 02/08/17 04/12/23 documented as of this encounter
--- OUTSIDE RECORDS SUMMARY | 2024-09-03 19:19 | XMS_ITS | Encounter Summary ---
Author Organization [facility] Address [address] [place] [address]. [place] [address] [place] [address] Care Team Providers Care Supervisor Title Name Role Phone Unavailable Primary Care Provider Unavailabl e Encounter Details Date Type Department Care Team (Late st Contact Info) Description 08/25/2011 Abstract [facility] [address] [place] [address] Eun Tovar MD Social History [...] Contact Info) Description 09/25/2024 2:00 PM WOOD MILLING MACHINE OPERATOR Appointment [facility] [address] [place] [address] Zayra Powell, DOCUMENT MANAGEMENT TECHNICIAN [address] [place] [address] 10/16/2024 3:30 PM WOOD MILLING MACHINE OPERATOR Office Visit [facility] [address] [phone] Brit Gonzáles MD 619 [place] [address] documented as of this encounter Visit Diagnoses Not on filedocumented in this encounter
--- OUTSIDE RECORDS SUMMARY | 2024-09-03 19:19 | XMS_ITS | Encounter Summary ---
Author Organization [facility] Address [address] [place] [address]. [place] [address] [place] [address] Care Team Providers Care Health Facilities Surveyor Name Role Phone Piyush Pandey MD, Amy E MD Primary Care Provider [phone] Encounter Details Date Type Department Care Team (Late st Contact Info) Description 08/22/2012 Scan [facility] [facility] AT [address] [address] Eun Tovar MD Social History [...] st Contact Info) Description 09/25/2024 2:00 PM TRANSITION TEACHER Appointment [facility] [address] [place] [address] Zayra Powell, DISASSEMBLER PRODUCT [address] [place] [address] 10/16/2024 3:30 PM TRANSITION TEACHER Office Visit [facility] [address] [place] [phone] Brit Gonzáles MD [address] [place] [address] documented as of this encounter Visit Diagnoses Not on filedocumented in this encounter Care Teams Health Facilities Surveyor Relationship Specialty Start Date End Date Megan Infante MD [address] [facility] [place] [address] PCP - General FAMILY PRACTICE 04/06/16 Piyush Pandey MD [place] Dag Sprayer CARDIOVASCULAR DISEASE 04/06/16 12/28/23 documented as of this encounter
--- OUTSIDE RECORDS SUMMARY | 2024-09-03 19:19 | XMS_ITS | Encounter Summary ---
Author Organization [facility] Address [address] [place] [address]. [place] [address] [place] [address] Care Team Providers Care Network Intelligence Analyst Name Role Phone Piyush Pandey MD Unavailable UnavailMegan Rodriguez MD Primary Care Provider [phone] Sharmila Davis APRN CRM MANAGER-C Unavailable Linda Block MD Unavailable [phone] Encounter Details Date Type Department Care Team (Late st Contact Info) Description 11/03/2007 Abstract [facility] [address] [place] [address] Palomo Ponce MD [facility] [place] [address] Social History Tobacco Use Types [...] Contact Info) Description 09/25/2024 2:00 PM HOME ENERGY CONSULTANT Appointment [facility] [address] [address] Zayra Powell, REFERENCE DATA EXPERT [address] [place] [address] 10/16/2024 3:30 PM HOME ENERGY CONSULTANT Office Visit [facility] [address] [place] [address] Brit Gonzáles MD 619 [place] [address] documented as of this encounter Visit Diagnoses Not on filedocumented in this encounter Care Teams Network Intelligence Analyst Relationship Specialty Start Date End Date Megan Infante MD [address] [place] [address] PCP - General FAMILY PRACTICE 04/06/16 Piyush Pandey MD [place] Hog Cutter CARDIOVASCULAR DISEASE 04/06/16 12/28/23 Sharmila Davis, DANNY, CRM MANAGER-C 619 [facility] [address] [place] [address] NURSE PRACTITIONER 01/04/17 04/03/24 Linda Block MD 619 [facility] [address] [place] [address] [place] Hog Cutter CLINICAL CARDIAC ELECTROPHYSIOLOGY 02/08/17 04/12/23 documented as of this encounter
--- OUTSIDE RECORDS SUMMARY | 2024-09-03 19:19 | XMS_ITS | Encounter Summary ---
Author Organization [facility] Address [address] [place] [address]. [place] [address] [place] [address] Care Team Providers Care Electrical Discharge Machine Operator Name Role Phone Piyush Pandey MD, Amy E MD Primary Care Provider [phone] Encounter Details Date Type Department Care Team (Late st Contact Info) Description 02/02/2014 Scan [facility] [facility] [place] [facility] AT [address] [address] Eun Tovar MD Social History [...] st Contact Info) Description 09/25/2024 2:00 PM EMBROIDERY WORKER Appointment [facility] [address] [place] [address] Zayra Powell, TANK TRUCK LOADER [address] [place] [address] 10/16/2024 3:30 PM EMBROIDERY WORKER Office Visit [facility] [address] [place] [phone] Brit Gonzáles MD [address] [place] [address] documented as of this encounter Visit Diagnoses Not on filedocumented in this encounter Care Teams Electrical Discharge Machine Operator Relationship Specialty Start Date End Date Megan Infante MD [address] [place] [address] PCP - General FAMILY PRACTICE 04/06/16 Piyush Pandey MD [place] Clay Molder CARDIOVASCULAR DISEASE 04/06/16 12/28/23 documented as of this encounter
--- OUTSIDE RECORDS SUMMARY | 2024-09-03 19:19 | XMS_ITS | Encounter Summary ---
Author Organization [facility] Address [address] [place] [address]. [place] [address] [place] [address] Care Team Providers Care Supervisor Finishing Name Role Phone Unavailable Primary Care Provider Unavailabl e Encounter Details Date Type Department Care Team (Late st Contact Info) Description 11/21/2013 Abstract [facility] 619 [place] [address] Eun Tovar MD Social History [...] st Contact Info) Description 09/25/2024 2:00 PM CURING MACHINE OPERATOR Appointment [facility] [address] [place] [address] Zayra Powell, DAIRY INSPECTOR [address] [place] [address] 10/16/2024 3:30 PM CURING MACHINE OPERATOR Office Visit [facility] [place] [address] [phone] Brit Gonzáles MD 619 [place] [address] documented as of this encounter Visit Diagnoses Not on filedocumented in this encounter
--- OUTSIDE RECORDS SUMMARY | 2024-09-03 19:19 | XMS_ITS | Encounter Summary ---
Author Organization [facility] Address [facility] [place] [address] [place] [address] Care Team Providers Care Harbour Master Name Role Phone Piyush Pandey MD Unavailable Unavailabl Megan Leos MD Primary Care Provider [phone] Sharmila Davis APRN ANTHROPOLOGY LECTURER-C Unavailable Linda Block MD Unavailable [phone] Encounter Details Date Type Department Care Team (Late st Contact Info) Description 02/16/2011 Abstract [facility] [address] [place] [address] Piyush Pandey MD Social History Tobacco Use [...] Contact Info) Description 09/25/2024 2:00 PM TUBE WINDER Appointment [facility] [address] [place] [address] Zayra Powell, BUSINESS OBJECTS REPORT DEVELOPER [address] [place] [address] 10/16/2024 3:30 PM TUBE WINDER Office Visit [facility] [address] [place] [phone] Brit Gonzáles MD [address] [place] [address] documented as of this encounter Visit Diagnoses Diagnosis 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 documented in this encounter Care Teams Harbour Master Relationship Specialty Start Date End Date Megan Infante MD [address] [facility] [place] [address] PCP - General FAMILY PRACTICE 04/06/16 Piyush Pandey MD [place] Respiratory Physician CARDIOVASCULAR DISEASE 04/06/16 12/28/23 Sharmila Davis, MOWING MACHINE OPERATOR, ANTHROPOLOGY LECTURER-C 619 [facility] [address] [place] [address] NURSE PRACTITIONER 01/04/17 04/03/24 Linda Block MD 619 [facility] [address] [place] [address] [place] Respiratory Physician CLINICAL CARDIAC ELECTROPHYSIOLOGY 02/08/17 04/12/23 documented as of this encounter
--- OUTSIDE RECORDS SUMMARY | 2024-09-03 19:19 | XMS_ITS | Encounter Summary ---
Author Organization [facility] Address [facility] [place] [address] [place] [address] Care Team Providers Care Pick Up Truck Driver Name Role Phone Amauri Pandey MD Unavailable Unavailabl Megan Leos MD Primary Care Provider [phone] Sharmila Davis APRN GAS STOVE SERVICER HELPER-C Unavailable [phone] Linda Block MD Unavailable [phone] Encounter Details Date Type Department Care Team (Late st Contact Info) Description 03/20/2013 Abstract [facility] Paralegal Supervisor [address] [place] [address] Amauri Pandey MD Social History Tobacco Use [...] Contact Info) Description 09/25/2024 2:00 PM ENVIRONMENTAL SERVICE AIDE Appointment [facility] [address] [place] [id number] Zayra Powell, ANIMAL HUMANE AGENT SUPERVISOR [address] [place] [address] 10/16/2024 3:30 PM ENVIRONMENTAL SERVICE AIDE Office Visit [facility] [address] [place] [phone] Brit Gonzáles MD 6[address] [place] [address] documented as of this encounter Procedures Procedure Name Priority Date/Time Associated Diagnosis Comments ECG 12-LEAD Routine 03/20/2013 10:59 AM CDT documented in this encounter Results * ECG 12 lead (03/20/2013 10:59 AM CDT) 03/20/2013 10:5 9 AM CDT Narrative [facility] - 03/20/2013 11:53 AM CDT ? [facility] ? [address] [place], [place] ??[address] ? Test Date: ?2013-03-20 Pat Name: ? OBIE SIMS ?Department: ?? 1 ? Room: ? Gender: ? M ?Javascript Web Developer: ?? sg : ?1955 ? Requested By: AMAURI PANDEY Order Number: [id number] ? Sage LANDRY: ?? Santiago Haque ? Measurements Intervals ?[place] ? Rate: ? 58 ? P: ?0 OK: ? 151 ?QRS: ?-16 QRSD: ? 114 ?T: ?134 QT: ? 435 ? QTc: ?432 ? Interpretive Statements SINUS BRADYCARDIA LEFT VENTRICULAR HYPERTROPHY AND ST-T CHANGE [VOLTAGE CRITERIA PLUS ST/T ABNORMALITY] POSSIBLE SEPTAL MYOCARDIAL INFARCTION [30 ms Q WAVE IN V1/V2], OF INDETERMINATE AGE Procedure Note Eun Landry MD - 04/19/2019 [facility] [address] [place] [address] Test Date: 2013-03-20 Pat Name: OBIE SIMS Department: 1 Room: Gender: M Javascript Web Developer: : 1955 Requested By: AMAURI PANDEY Order Number: [id number] Reading MD: Santiago Haque Measurements Intervals [place] Rate: 58 P: 0 OK: 151 QRS: -16 QRSD: 114 T: 134 QT: 435 QTc: 432 Interpretive Statements SINUS BRADYCARDIA LEFT VENTRICULAR HYPERTROPHY AND ST-T CHANGE [VOLTAGE CRITERIA PLUS ST/T ABNORMALITY] POSSIBLE SEPTAL MYOCARDIAL INFARCTION [30 ms Q WAVE IN V1/V2], OF INDETERMINATE AGE us Generic Conversion Md LANDRY ECG ORDERABLES Final R esult [facility] documented in this encounter Visit Diagnoses Diagnosis Chest pain Chest pain, unspecified documented in this encounter Care Teams Pick Up Truck Driver Relationship Specialty Start Date End Date Megan Infante MD [address] [facility] [place] [address] PCP - General FAMILY PRACTICE 04/06/16 Amauri Pandey MD [place] Seasonal Greenery Bundler CARDIOVASCULAR DISEASE 04/06/16 12/28/23 Sharmila Davis, DIRECTOR OF MARKETING, GAS STOVE SERVICER HELPER-C [address] [facility] [address] [place] [address] NURSE PRACTITIONER 01/04/17 04/03/24 Linda Block MD 619 [facility] [address] [place] [address] [place] Seasonal Greenery Bundler CLINICAL CARDIAC ELECTROPHYSIOLOGY 02/08/17 04/12/23 documented as of this encounter
--- OUTSIDE RECORDS SUMMARY | 2024-09-03 19:19 | XMS_ITS | Encounter Summary ---
Author Organization [facility] Address [address] [place] [address]. [place] [address] [place] [address] Care Team Providers Care Tube Knitter Name Role Phone Unavailable Primary Care Provider Unavailabl e Encounter Details Date Type Department Care Team (Late st Contact Info) Description 11/30/2013 Scan [facility] [address] [place] [address] Eun Tovar MD Social History [...] st Contact Info) Description 09/25/2024 2:00 PM DRUM DRIER Appointment [facility] [address] [place] [address] Zayra Powell, PRESIDENT [employer] [address] [place] [address] 10/16/2024 3:30 PM DRUM DRIER Office Visit [facility] [address] [phone] Brit Gonzáles MD [address] [place] [address] documented as of this encounter Visit Diagnoses Not on filedocumented in this encounter
--- OUTSIDE RECORDS SUMMARY | 2024-09-03 19:19 | XMS_ITS | Encounter Summary ---
Author Organization [facility] Address [address] [place] [address]. [place] [address] [place] [address] Care Team Providers Care Launch Commander Harbor Police Name Role Phone Piyush Pandey MD, Amy E MD Primary Care Provider [phone] Encounter Details Date Type Department Care Team (Late st Contact Info) Description 01/05/2011 Abstract [facility] [address] [place] [address] Eun Tovar MD Social History Tobacco [...] st Contact Info) Description 09/25/2024 2:00 PM SPINNER CAP FRAME Appointment [facility] [address] [place] [address] Zayra Powell, JUDICIAL REGISTRAR [address] [place] [address] 10/16/2024 3:30 PM SPINNER CAP FRAME Office Visit [facility] [address] [place] [phone] Brit Gonzáles MD [address] [place] [phone] documented as of this encounter Visit Diagnoses Not on filedocumented in this encounter Care Teams Launch Commander Harbor Police Relationship Specialty Start Date End Date Megan Infante MD [address] [facility] [place] [address] PCP - General FAMILY PRACTICE 04/06/16 Piyush Pandey MD [place] Business Services Clerk CARDIOVASCULAR DISEASE 04/06/16 12/28/23 documented as of this encounter
--- OUTSIDE RECORDS SUMMARY | 2024-09-03 19:19 | XMS_ITS | Encounter Summary ---
Author Organization [facility] Address [address] [place] [address]. [place] [address] [place] [address] Care Team Providers Care Surgery Center Administrator Name Role Phone Piyush Pandey MD Unavailable UnavailMegan Rodriguez MD Primary Care Provider [phone] Sharmila Davis APRN MODERN DANCER-C Unavailable Linda Block MD Unavailable [phone] Encounter Details Date Type Department Care Team (Late st Contact Info) Description 07/21/2007 Abstract [facility] [address] [place] [address] Palomo Ponce MD [facility][note 3]0 [place] [address] Social History Tobacco Use Types [...] st Contact Info) Description 09/25/2024 2:00 PM KNITTING SUPERVISOR Appointment [facility] [address] [address] Zayra Powell, ELECTRICAL SIGN SERVICER [address] [place] [address] 10/16/2024 3:30 PM KNITTING SUPERVISOR Office Visit [facility] [place] [address] Brit Gonzáles MD [address] [place] [address] documented as of this encounter Visit Diagnoses Not on filedocumented in this encounter Care Teams Surgery Center Administrator Relationship Specialty Start Date End Date Megan Infante MD [address] [place] [address] PCP - General FAMILY PRACTICE 04/06/16 Piyush Pandey MD [employer] Teacher CARDIOVASCULAR DISEASE 04/06/16 12/28/23 Sharmila Davis, DANNY, MODERN DANCER-C 619 [facility] [address] [place] [phone] NURSE PRACTITIONER 01/04/17 04/03/24 Linda Block MD 619 [facility] [address] [place] [address] [employer] Teacher CLINICAL CARDIAC ELECTROPHYSIOLOGY 02/08/17 04/12/23 documented as of this encounter
--- OUTSIDE RECORDS SUMMARY | 2024-09-03 19:19 | XMS_ITS | Encounter Summary ---
Author Organization [facility] Address [facility] [place] [address] [place] [address] Care Team Providers Care Tree Specialist Name Role Phone Piyush Pandey MD Unavailable UnavailMegan Rodriguez MD Primary Care Provider [phone] Sharmila Davis APRN, DIAMOND SANDER-C Unavailable Marlee Vega MD Unavailable [phone] Encounter Details Date Type Department Care Team (Latest Contact Info) Description 04/11/2012 Abstract [facility] Shubham Callahan MD [address] [place] [address] Social History Tobacco Use Types Packs/Day Years [...] st Contact Info) Description 09/25/2024 2:00 PM TECH WRITER Appointment [facility] [address] [place] [address] Zayra Powell FNP [address] [place] [address] 10/16/2024 3:30 PM TECH WRITER Office Visit [facility] [address] [place] [address] Brit Gonzáles MD 6[address] [place] [address] documented as of this encounter Procedures Procedure Name Priority Date/Time Associated Diagnosis Comments ECG 12-LEAD Routine 04/11/2012 11:44 PM CDT ECG 12-LEAD Routine 04/11/2012 12:33 PM CDT documented in this encounter Results * ECG 12 lead (04/11/2012 11:44 PM CDT) 04/11/2012 11:4 4 PM CDT Narrative [facility] - 04/12/2012 7:04 PM CDT ? [facility] ? Test Date: ?2012-04-11 Pat Name: ? OBIE SIMS ?Department: ?? -1 ? Room: ? 0404AA Gender: ? M ?Internal Controls Specialist: ?? EAR : ?1955 ? Requested By: MARLEE VEGA Order Number: [id number] ?Sage LANDRY: ?? Armand Lentz ? Measurements Intervals ?[place] ? Rate: ? 74 ? P: ? [place]: ?QRS: ?-6 QRSD: ? 108 ?T: ?144 QT: ? 450 ? QTc: ?499 ? Interpretive Statements Atrial fibrillation Incomplete left bundle branch block Minimal voltage criteria for LVH, may be normal variant ST & T wave abnormality, consider lateral ischemia or digitalis effect Prolonged QT Abnormal ECG Procedure Note Eun Landry, - 04/19/2019 [facility] Test Date: 2012-04-11 Pat Name: OBIE SIMS Department: -1 Room: [facility] Gender: M Internal Controls Specialist: EAR : 1955 Requested By: MARLEE VEGA Order Number: [id number] Reading MD: Armand Lentz Measurements Intervals [place] Rate: 74 P: [place]: QRS: -6 QRSD: 108 T: 144 QT: 450 QTc: 499 Interpretive Statements Atrial fibrillation Incomplete left bundle branch block Minimal voltage criteria for LVH, may be normal variant ST & T wave abnormality, consider lateral ischemia or digitalis effect Prolonged QT Abnormal ECG us Generic Conversion Md LANDRY ECG ORDERABLES Final R esult [facility] * ECG 12 lead (04/11/2012 12:33 PM CDT) 04/11/2012 12:3 3 PM CDT Narrative [facility] - 04/12/2012 7:07 PM CDT ? [facility] ? Test Date: ?2012-04-11 Pat Name: ? OBIE SIMS ?Department: ?? -1 ? Room: ? 0404AA Gender: ? M ?Internal Controls Specialist: ?? JM : ?1955 ? Requested By: MARLEE VEGA Order Number: [id number] ?Reading : ?? Armand Lentz ? Measurements Intervals ?[place] ? Rate: ? 89 ? P: ? KS: ?QRS: ?-10 QRSD: ? 108 ?T: ?153 QT: ? 368 ? QTc: ?447 ? Interpretive Statements Atrial fibrillation Minimal voltage criteria for LVH, may be normal variant ST & T wave abnormality, consider lateral ischemia or digitalis effect Abnormal ECG Procedure Note Eun Landry, - 04/19/2019 [facility] Test Date: 2012-04-11 Pat Name: OBIE SIMS Department: -1 Room: [facility] Gender: M Internal Controls Specialist: : 1955 Requested By: MARLEE VEGA Order Number: [id number] Reading MD: Armand Lentz Measurements Intervals [place] Rate: 89 P: [place]: QRS: -10 QRSD: 108 T: 153 QT: 368 QTc: 447 Interpretive Statements Atrial fibrillation Minimal voltage criteria for LVH, may be normal variant ST & T wave abnormality, consider lateral ischemia or digitalis effect Abnormal ECG us Generic Conversion Md LANDRY ECG ORDERABLES Final R esult [facility] documented in this encounter Visit Diagnoses Not on filedocumented in this encounter Care Teams Tree Specialist Relationship Specialty Start Date End Date Megan Infante MD 1285 [facility] [place] [phone] PCP - General FAMILY PRACTICE 04/06/16 Piyush Pandey MD [place] Coal Sampler CARDIOVASCULAR DISEASE 04/06/16 12/28/23 Sharmila Davis, QUANTITATIVE SOFTWARE ENGINEER, DIAMOND SANDER-C [address] [facility] [address] [place] [phone] NURSE PRACTITIONER 01/04/17 04/03/24 Marlee Vega MD 619 [facility] [address] [phone] [place] Coal Sampler CLINICAL CARDIAC ELECTROPHYSIOLOGY 02/08/17 04/12/23 documented as of this encounter
--- OUTSIDE RECORDS SUMMARY | 2024-09-03 19:19 | XMS_ITS | Encounter Summary ---
Author Organization [facility] Address [address] [place] [address]. [place] [address] [place] [address] Care Team Providers Care Harvest Worker Name Role Phone Piyush Pandey MD Unavailable UnavailMegan Rodriguez MD Primary Care Provider [phone] Sharmila Davis APRN, PRODUCT DEVELOPMENT COORDINATOR-C Unavailable Linda Block MD Unavailable [phone] Encounter Details Date Type Department Care Team (Late st Contact Info) Description 07/13/[address] [facility] [address] [place] [address] Matias Mac MD [address] [place] [address] Social History Tobacco Use Types Packs/Day Years [...] st Contact Info) Description 09/25/2024 2:00 PM LOOM CONTROL CHAIN BUILDER Appointment [facility] [address] [place] [address] Zayra Powell, CENTRAL STERILE TECH [address] [place] [address] 10/16/2024 3:30 PM LOOM CONTROL CHAIN BUILDER Office Visit [facility] Gut[address]rez[address] [place] [address] Brit Gonzáles MD [address] [place] [address] documented as of this encounter Visit Diagnoses Not on filedocumented in this encounter Care Teams Harvest Worker Relationship Specialty Start Date End Date Megan Infante MD [address] [place] [address] PCP - General FAMILY PRACTICE 04/06/16 Piyush Pandey MD [place] Aligner Barrel And Receiver CARDIOVASCULAR DISEASE 04/06/16 12/28/23 Sharmila Davis, PRODUCT DEVELOPMENT COORDINATOR, PRODUCT DEVELOPMENT COORDINATOR-C 619 [facility] [address] [place] [phone] NURSE PRACTITIONER 01/04/17 04/03/24 Linda Block MD 619 [facility] [address] [place] [phone] [place] Aligner Barrel And Receiver CLINICAL CARDIAC ELECTROPHYSIOLOGY 02/08/17 04/12/23 documented as of this encounter
--- OUTSIDE RECORDS SUMMARY | 2024-09-03 19:19 | XMS_ITS | Encounter Summary ---
Author Organization [facility] Address [address] [place] [address]. [place] [address] [place] [address] Care Team Providers Care Children'S Counselor Name Role Phone Piyush Pandey MD Unavailable UnavailMegan Rodriguez MD Primary Care Provider [phone] Sharmila Davis APRN, UPPER CUTTER MACHINE-C Unavailable Linda Block MD Unavailable [phone] Encounter Details Date Type Department Care Team (Late st Contact Info) Description 04/02/[address] [facility] [address] [place] [address] Matias Mac MD [address] [place] [address] Social History Tobacco Use Types Packs/Day Years [...] st Contact Info) Description 09/25/2024 2:00 PM LINUX UNIX ENGINEER Appointment [facility] [address] [place] [address] Zayra Powell FNP [address] [place] [address] 10/16/2024 3:30 PM LINUX UNIX ENGINEER Office Visit [facility] [address]rez[address] [place] [address] Brit Gonzáles MD [address] [place] [address] documented as of this encounter Visit Diagnoses Diagnosis Procedure not carried out for other reasons documented in this encounter Care Teams Children'S Counselor Relationship Specialty Start Date End Date Megan Infante MD [address] [place] [address] PCP - General FAMILY PRACTICE 04/06/16 Piyush Pandey MD [place] Head Operator CARDIOVASCULAR DISEASE 04/06/16 12/28/23 Sharmila Davis APRN, UPPER CUTTER MACHINE-C 619 [facility] [address] [place] [phone] NURSE PRACTITIONER 01/04/17 04/03/24 Linda Block MD 619 [facility] [address] [place] [address] [place] Head Operator CLINICAL CARDIAC ELECTROPHYSIOLOGY 02/08/17 04/12/23 documented as of this encounter
--- OUTSIDE RECORDS SUMMARY | 2024-09-03 19:19 | XMS_ITS | Encounter Summary ---
Author Organization [facility] Address [address] [place] [address]. [place] [address] [place] [address] Care Team Providers Care Grinder Carbon Plant Name Role Phone Piyush Pandey MD Unavailable UnavailMegan Rodriguez MD Primary Care Provider [phone] Sharmila Davis APRN, GLOBAL CMO-C Unavailable Linda Block MD Unavailable [phone] Encounter Details Date Type Department Care Team (Late st Contact Info) Description 04/27/[address] [facility] [address] [place] [address] Matias Mac MD [address] [place] [address] Social History Tobacco Use Types Packs/Day Years [...] Contact Info) Description 09/25/2024 2:00 PM SURGICAL CONSULTANT Appointment [facility] [address] [place] [address] Zayra Powell, RACING MANAGER [address] [place] [address] 10/16/2024 3:30 PM SURGICAL CONSULTANT Office Visit [facility] [place] [address] Brit Gonzáles MD [address] [place] [address] documented as of this encounter Visit Diagnoses Diagnosis Encounter for rehabilitation Unspecified rehabilitation procedure documented in this encounter Care Teams Grinder Carbon Plant Relationship Specialty Start Date End Date Megan Infante MD [address] [place] [phone] PCP - General FAMILY PRACTICE 04/06/16 Piyush Pandey MD [place] [address] Counsellor CARDIOVASCULAR DISEASE 04/06/16 12/28/23 Sharmila Davis APRN, GLOBAL CMO-C 619 [facility] [address] [place] [phone] NURSE PRACTITIONER 01/04/17 04/03/24 Linda Block MD 619 [facility] [address] [place] [phone] Counsellor CLINICAL CARDIAC ELECTROPHYSIOLOGY 02/08/17 04/12/23 documented as of this encounter
--- OUTSIDE RECORDS SUMMARY | 2024-09-03 19:19 | XMS_ITS | Encounter Summary ---
Author Organization [facility] Address [address] [place] [address]. [place] [address] [place] [address] Care Team Providers Care Waste Water Worker Name Role Phone Piyush Pandey MD, Amy E MD Primary Care Provider [phone] Encounter Details Date Type Department Care Team (Late st Contact Info) Description 12/29/2010 Scan [facility] [address] [address] Eun Tovar MD Social History [...] Contact Info) Description 09/25/2024 2:00 PM SENIOR QUALITY TECHNICIAN Appointment [facility] [address] [place] [address] Zayra Powell, SODA CLERK [address] [place] [address] 10/16/2024 3:30 PM SENIOR QUALITY TECHNICIAN Office Visit [facility] [address] [place] [phone] Brit Gonzáles MD [address] [place] [address] documented as of this encounter Visit Diagnoses Not on filedocumented in this encounter Care Teams Waste Water Worker Relationship Specialty Start Date End Date Megan Infante MD [address] [place] [address] PCP - General FAMILY PRACTICE 04/06/16 Piyush Pandey MD [place] Relief Pilot CARDIOVASCULAR DISEASE 04/06/16 12/28/23 documented as of this encounter
--- OUTSIDE RECORDS SUMMARY | 2024-09-03 19:19 | XMS_ITS | Encounter Summary ---
Author Organization [facility] Address [address] [place] [address]. [place] [address] [place] [address] Care Team Providers Care Canal Superintendent Name Role Phone Unavailable Primary Care Provider Unavailabl e Encounter Details Date Type Department Care Team (Late st Contact Info) Description 11/13/2013 Scan [facility] [address] [place] [address] Eun Tovar MD Social History [...] st Contact Info) Description 09/25/2024 2:00 PM DIVERSIFIED CROPS FARMER Appointment [facility] [address] [place] [address] Zayra Powell, BRIDGE ATTACHER [address] [place] [address] 10/16/2024 3:30 PM DIVERSIFIED CROPS FARMER Office Visit [facility] [address] [phone] Brit Gonzáles MD [address]19 [place] [address] documented as of this encounter Visit Diagnoses Not on filedocumented in this encounter
--- OUTSIDE RECORDS SUMMARY | 2024-09-03 19:19 | XMS_ITS | Encounter Summary ---
Author Organization [facility] Address [address] [place] [address]. [place] [address] [place] [address] Care Team Providers Care Mover Name Role Phone Piyush Pandey MD Unavailable UnavailMegan Rodriguez MD Primary Care Provider [phone] Sharmila Davis APRN UNIVERSITY COUNSELOR-C Unavailable Linda Block MD Unavailable [phone] Encounter Details Date Type Department Care Team (Late st Contact Info) Description 06/23/2007 Abstract [facility] CONVERSION [address] [place], [place] [id number] Palomo Ponce MD [facility] [place] [address] Social History Tobacco Use Types [...] st Contact Info) Description 09/25/2024 2:00 PM RECYCLING COLLECTIONS DRIVER Appointment [facility] [address] [address] Zayra Powell, CAT OPERATOR [address] [place] [address] 10/16/2024 3:30 PM RECYCLING COLLECTIONS DRIVER Office Visit [facility] [address] Brit Gonzáles MD [address] [place] [address] documented as of this encounter Visit Diagnoses Not on filedocumented in this encounter Care Teams Mover Relationship Specialty Start Date End Date Megan Infante MD [address] [place] [address] PCP - General FAMILY PRACTICE 04/06/16 Piyush Pandey MD [place] Animal Trainer CARDIOVASCULAR DISEASE 04/06/16 12/28/23 Sharmila Davis, DANNY, UNIVERSITY COUNSELOR-C [address] [facility] [address]P57 [place] [address] NURSE PRACTITIONER 01/04/17 04/03/24 Linda Block MD 619 [facility] [address] [place] [address] [place] Animal Trainer CLINICAL CARDIAC ELECTROPHYSIOLOGY 02/08/17 04/12/23 documented as of this encounter
--- OUTSIDE RECORDS SUMMARY | 2024-09-03 19:19 | XMS_ITS | Encounter Summary ---
Author Organization [facility] Address [address] [place] [address]. [place] [address] [place] [address] Care Team Providers Care Stereoptician Name Role Phone Unavailable Primary Care Provider Unavailabl e Encounter Details Date Type Department Care Team (Late st Contact Info) Description 04/14/2012 Abstract [facility] [address] [place] [address] Eun Landry MD Social History [...] st Contact Info) Description 09/25/2024 2:00 PM PROMOTIONAL MARKETING ANALYST Appointment [facility] [address] [place] [address] Zayra Powell, MOTEL OPERATOR [address] [place] [address] 10/16/2024 3:30 PM PROMOTIONAL MARKETING ANALYST Office Visit [facility] [address] [place] [phone] Brit Gonzáles MD 619 [place] [address] documented as of this encounter Procedures Procedure Name Priority Date/Time Associated Diagnosis Comments ECG 12-LEAD Routine 04/14/2012 11:24 AM CDT ECG 12-LEAD Routine 04/14/2012 8:02 AM CDT documented in this encounter Results * ECG 12 lead (04/14/2012 11:24 AM CDT) 04/14/2012 11:2 4 AM CDT Narrative [facility] - 04/15/2012 7:44 PM CDT ? [facility] ? [address], [place] ??[address] ? Test Date: ?2012-04-14 Pat Name: ? OBIE SIMS ?Department: ?? 1 ? Room: ? 0404AA Gender: ? M ?Wash Crew Person: ?? NATALY : ?1955 ? Requested By: MARLEE VEGA Order Number: [id number] ?Reading MD: ?? Armand Lentz ? Measurements Intervals ?[place] ? Rate: ? 70 ? P: ?12 NH: ? 180 ?QRS: ?-15 QRSD: ? 106 ?T: ?114 QT: ? 446 ? QTc: ?481 ? Interpretive Statements Sinus rhythm with occasional premature ventricular complexes Incomplete left bundle branch block Left ventricular hypertrophy with repolarization abnormality Prolonged QT Abnormal ECG Procedure Note , Generic Conversion, - 04/19/2019 [facility] [address] [place] [address] Test Date: 2012-04-14 Pat Name: OBIE SIMS Department: 1 Room: [facility] Gender: M Wash Crew Person: NATALY : 1955 Requested By: MARLEE VEGA Order Number: [id number] Reading MD: Armand Letnz Measurements Intervals Hamilton Rate: 70 P: 12 NH: 180 QRS: -15 QRSD: 106 T: 114 QT: 446 QTc: 481 Interpretive Statements Sinus rhythm with occasional premature ventricular complexes Incomplete left bundle branch block Left ventricular hypertrophy with repolarization abnormality Prolonged QT Abnormal ECG us Generic Conversion Md LANDRY ECG ORDERABLES Final R esult [facility] * ECG 12 lead (04/14/2012 8:02 AM CDT) 04/14/2012 8:02 AM CDT Narrative [facility] - 04/15/2012 7:51 PM CDT ? [facility] ? [address], [place] ??[address] ? Test Date: ?2012-04-14 Pat Name: ? OBIE BELLHAN ?Department: ?? 1 ? Room: ? 0404AA Gender: ? M ?Wash Crew Person: ?? JM : ?1955 ? Requested By: MARLEE VEGA Order Number: [id number] ?Reading MD: ?? Armand Lentz ? Measurements Intervals ?[place] ? Rate: ? 64 ? P: ? NH: ?QRS: ?-12 QRSD: ? 106 ?T: ?136 QT: ? 426 ? QTc: ?439 ? Interpretive Statements Atrial fibrillation with premature ventricular or aberrantly conducted complexes Incomplete left bundle branch block Minimal voltage criteria for LVH, may be normal variant ST & T wave abnormality, consider lateral ischemia or digitalis effect Abnormal ECG Procedure Note , Generic Conversion, - 04/19/2019 [facility] [address] [place] [address] Test Date: 2012-04-14 Pat Name: OBIE SIMS Department: 1 Room: [facility] Gender: M Wash Crew Person: : 1955 Requested By: MARLEE VEGA Order Number: [id number] Reading MD: Armand Lentz Measurements Intervals Hamilton Rate: 64 P: NH: QRS: -12 QRSD: 106 T: 136 QT: 426 QTc: 439 Interpretive Statements Atrial fibrillation with premature ventricular or aberrantly conducted complexes Incomplete left bundle branch block Minimal voltage criteria for LVH, may be normal variant ST & T wave abnormality, consider lateral ischemia or digitalis effect Abnormal ECG us Generic Conversion Md LANDRY ECG ORDERABLES Final R esult [facility] documented in this encounter Visit Diagnoses Not on filedocumented in this encounter
--- OUTSIDE RECORDS SUMMARY | 2024-09-03 19:20 | XMS_ITS | Encounter Summary ---
Author Organization [facility] Address [address] [place] [address]. [place] [address] [place] [address] Care Team Providers Care Lead Electrician Name Role Phone Piyush Pandey MD Unavailable Unavailabl Megan Leos MD Primary Care Provider [phone] Sharmila Davis APRN FUNCTIONAL SKILLS TUTOR-C Unavailable Linda Block MD Unavailable [phone] Encounter Details Date Type Department Care Team (Late st Contact Info) Description 10/27/2001 Abstract [facility] CONVERSION [address] [place] [address] , Generic MD Nikhil Social History Tobacco Use Types Packs/Day Years [...] st Contact Info) Description 09/25/2024 2:00 PM PENOLOGY PROFESSOR Appointment [facility] [address] [place] [address] Zayra Powell, SAGGER MAKER [address] [place] [address] 10/16/2024 3:30 PM PENOLOGY PROFESSOR Office Visit [facility] [address] [place] [address] Brit Gonzáles MD [address] [place] [address] documented as of this encounter Visit Diagnoses Not on filedocumented in this encounter Care Teams Lead Electrician Relationship Specialty Start Date End Date Megan Infante MD [address] [facility] [place] [phone] PCP - General FAMILY PRACTICE 04/06/16 Piyush Pandey MD [place] Gas Appliance Mechanic CARDIOVASCULAR DISEASE 04/06/16 12/28/23 Sharmila Davis APRN, FUNCTIONAL SKILLS TUTOR-C 619 [facility] [address] [place] [address] NURSE PRACTITIONER 01/04/17 04/03/24 Linda Block MD 619 [facility] [address] [place] [address] [place] Gas Appliance Mechanic CLINICAL CARDIAC ELECTROPHYSIOLOGY 02/08/17 04/12/23 documented as of this encounter
--- OUTSIDE RECORDS SUMMARY | 2024-09-03 19:20 | XMS_ITS | Encounter Summary ---
Author Organization [facility] Address [address] [place] [address]. [place] [address] [place] [address] Care Team Providers Care Field Technical Assistant Name Role Phone Piyush Pandey MD Unavailable Unavailabl Megan Leos MD Primary Care Provider [phone] Sharmila Davis APRN SHAKER OUT-C Unavailable Linda Block MD Unavailable [phone] Encounter Details Date Type Department Care Team (Late st Contact Info) Description 03/08/2003 Abstract [facility] CONVERSION [address] [place] [address] , Generic MD Nikhil Social [...] st Contact Info) Description 09/25/2024 2:00 PM BILINGUAL ACCOUNT MANAGER Appointment [facility] [address] [place] [address] Zayra Powell, CARTOGRAPHY TEACHER [address] [place] [address] 10/16/2024 3:30 PM BILINGUAL ACCOUNT MANAGER Office Visit [facility] [address] [place] [phone] Brit Gonzáles MD [address] [place] [address] documented as of this encounter Visit Diagnoses Not on filedocumented in this encounter Care Teams Field Technical Assistant Relationship Specialty Start Date End Date Megan Infante MD [address] [facility] [place] [address] PCP - General FAMILY PRACTICE 04/06/16 Piyush Pandey MD [place] Nut Cracker CARDIOVASCULAR DISEASE 04/06/16 12/28/23 Sharmila Davis APRN, SHAKER OUT-C 6[address] [facility] [address] [place] [address] NURSE PRACTITIONER 01/04/17 04/03/24 Linda Block MD 619 [facility] [address] [place] [address] [place] Nut Cracker CLINICAL CARDIAC ELECTROPHYSIOLOGY 02/08/17 04/12/23 documented as of this encounter
--- OUTSIDE RECORDS SUMMARY | 2024-09-03 19:20 | XMS_ITS | Encounter Summary ---
Author Organization [facility] Address [address] [place] [address]. [place] [address] [place] [address] Care Team Providers Care Radiographer Technologist Name Role Phone Piyush Pandey MD Unavailable Unavailabl Megan Leos MD Primary Care Provider [phone] Sharmila Davis APRN, APPLICATION SUPPORT LEAD-C Unavailable Linda Block MD Unavailable [phone] Encounter Details Date Type Department Care Team (Late st Contact Info) Description 12/20/2000 Abstract [facility] CONVERSION [address] [place] [address] , Generic MD Nikhil Social [...] st Contact Info) Description 09/25/2024 2:00 PM BISCUIT MACHINE OPERATOR Appointment [facility] [address] [place] [address] Zayra Powell, MUSIC REHABILITATION THERAPIST [address] [place] [address] 10/16/2024 3:30 PM BISCUIT MACHINE OPERATOR Office Visit [facility] [address] [place] [address] Brit Gonzáles MD [address] [place] [address] documented as of this encounter Visit Diagnoses Not on filedocumented in this encounter Care Teams Radiographer Technologist Relationship Specialty Start Date End Date Megan Infante MD [address] [place] [address] PCP - General FAMILY PRACTICE 04/06/16 Piyush Pandey MD [place] Vegetable Farm Worker CARDIOVASCULAR DISEASE 04/06/16 12/28/23 Sharmila Davis APRN, APPLICATION SUPPORT LEAD-C 6[address] [facility] [address] [place] [address] NURSE PRACTITIONER 01/04/17 04/03/24 Linda Block MD 619 [facility] [address] [place] [address] [place] Vegetable Farm Worker CLINICAL CARDIAC ELECTROPHYSIOLOGY 02/08/17 04/12/23 documented as of this encounter
--- OUTSIDE RECORDS SUMMARY | 2024-09-03 19:20 | XMS_ITS | Encounter Summary ---
Author Organization [facility] Address [address] [place] [address]. [place] [address] [place] [address] Care Team Providers Care Regional Sales Manager Name Role Phone Piyush Pandey MD Unavailable UnavailMegan Rodriguez MD Primary Care Provider [phone] Sharmila Davis APRN, TECHNICAL SUPPORT ANALYST-C Unavailable Linda Block MD Unavailable [phone] Encounter Details Date Type Department Care Team (Late st Contact Info) Description 12/09/[address] [facility] [address] [place] [address] Matias Mac MD [address] [place] [address] Social History Tobacco Use Types Packs/Day Years [...] st Contact Info) Description 09/25/2024 2:00 PM HEAT TREATING OPERATOR Appointment [facility] [address] [place] [address] Zayra Powell FNP [address] [place] [address] 10/16/2024 3:30 PM HEAT TREATING OPERATOR Office Visit [facility] Gutierrez[address] [place] [address] Brit Gonzáles MD 619 [place] [address] documented as of this encounter Visit Diagnoses Not on filedocumented in this encounter Care Teams Regional Sales Manager Relationship Specialty Start Date End Date Megan Infante MD [address] [place] [address] PCP - General FAMILY PRACTICE 04/06/16 Piyush Pandey MD [place] Senior Engineering Specialist CARDIOVASCULAR DISEASE 04/06/16 12/28/23 Sharmila Davis, ENTREPRENEUR, TECHNICAL SUPPORT ANALYST-C 619 [facility] [address] [place] [address] NURSE PRACTITIONER 01/04/17 04/03/24 Linda Block MD 619 [facility] [address] [place] [address] [place] Senior Engineering Specialist CLINICAL CARDIAC ELECTROPHYSIOLOGY 02/08/17 04/12/23 documented as of this encounter
--- OUTSIDE RECORDS SUMMARY | 2024-09-03 19:20 | XMS_ITS | Encounter Summary ---
Author Organization [facility] Address [address] [place] [address]. [place] [address] [place] [address] Care Team Providers Care Drop Wire Aliner Name Role Phone Piyush Pandey MD Unavailable Unavailabl Megan Leos MD Primary Care Provider [phone] Sharmila Davis APRN TRAFFIC CONTROL SPECIALIST-C Unavailable Linda Block MD Unavailable [phone] Encounter Details Date Type Department Care Team (Late st Contact Info) Description 06/08/2003 Abstract [facility] CONVERSION [address] [place] [address] , Generic MD Nikhil Social [...] st Contact Info) Description 09/25/2024 2:00 PM AUTOMOBILE ACCESSORIES SALESPERSON Appointment [facility] [address] [place] [address] Zayra Powell, DYE TUB TENDER [address] [place] [address] 10/16/2024 3:30 PM AUTOMOBILE ACCESSORIES SALESPERSON Office Visit [facility] [place] [address] [place] [address] Brit Gonzáles MD [address] [place] [address] documented as of this encounter Visit Diagnoses Not on filedocumented in this encounter Care Teams Drop Wire Aliner Relationship Specialty Start Date End Date Megan Infante MD [address] [facility] [address] [place] [address] PCP - General FAMILY PRACTICE 04/06/16 Piyush Pandey MD [place] Patient Day Coordinator CARDIOVASCULAR DISEASE 04/06/16 12/28/23 Sharmila Davis APRN, TRAFFIC CONTROL SPECIALIST-C 619 [facility] [address] [place] [address] NURSE PRACTITIONER 01/04/17 04/03/24 Linda Block MD 619 [facility] [address] [place] [address] [place] Patient Day Coordinator CLINICAL CARDIAC ELECTROPHYSIOLOGY 02/08/17 04/12/23 documented as of this encounter
--- OUTSIDE RECORDS SUMMARY | 2024-09-03 19:20 | XMS_ITS | Encounter Summary ---
Author Organization [facility] Address [address] [place] [address]. [place] [address] [place] [address] Care Team Providers Care Fluoroscope Operator Name Role Phone Piyush Pandey MD Unavailable Unavailabl Megan Leos MD Primary Care Provider [phone] Sharmila Davis APRN, HVAC SERVICES PROFESSIONAL-C Unavailable Linda Block MD Unavailable [phone] Encounter Details Date Type Department Care Team (Late st Contact Info) Description 03/24/2000 Abstract [facility] CONVERSION [address] [place] [address] , Generic MD Nikhil Social [...] st Contact Info) Description 09/25/2024 2:00 PM NATURAL SCIENCE MANAGER Appointment [facility] [address] [place] [address] Zayra Powell, ASSOCIATE CONSULTING ENGINEER [address] [place] [address] 10/16/2024 3:30 PM NATURAL SCIENCE MANAGER Office Visit [facility] [address] [place] [address] Brit Gonzáles MD [address] [place] [address] documented as of this encounter Visit Diagnoses Not on filedocumented in this encounter Care Teams Fluoroscope Operator Relationship Specialty Start Date End Date Megan Infante MD [address] [facility] [address] PCP - General FAMILY PRACTICE 04/06/16 Piyush Pandey MD [place] Lead Process Engineer CARDIOVASCULAR DISEASE 04/06/16 12/28/23 Sharmila Davis APRN, HVAC SERVICES PROFESSIONAL-C 619 [facility] [address] [place] [address] NURSE PRACTITIONER 01/04/17 04/03/24 Linda Block MD 619 [facility] [address] [place] [address] [place] Lead Process Engineer CLINICAL CARDIAC ELECTROPHYSIOLOGY 02/08/17 04/12/23 documented as of this encounter
--- OUTSIDE RECORDS SUMMARY | 2024-09-03 19:20 | XMS_ITS | Encounter Summary ---
Author Organization [facility] Address [address] [place] [address]. [place] [address] [place] [address] Care Team Providers Care General Merchandise Salesperson Name Role Phone Piyush Pandey MD Unavailable Unavailabl Megan Leos MD Primary Care Provider [phone] Sharmila Davis APRN STATION HELPER-C Unavailable Linda Block MD Unavailable [phone] Encounter Details Date Type Department Care Team (Late st Contact Info) Description 06/07/2003 Abstract [facility] CONVERSION [address] [place] [address] , Generic MD Nikhil Social [...] st Contact Info) Description 09/25/2024 2:00 PM BLANKING MACHINE OPERATOR Appointment [facility] [address] [place] [address] Zayra Powell, XEROX MACHINE ASSEMBLER [address] [place] [address] 10/16/2024 3:30 PM BLANKING MACHINE OPERATOR Office Visit [facility] [address] [place] [address] Brit Gonzáles MD [address] [place] [address] documented as of this encounter Visit Diagnoses Not on filedocumented in this encounter Care Teams General Merchandise Salesperson Relationship Specialty Start Date End Date Megan Infante MD [address] [facility] [place] [phone] PCP - General FAMILY PRACTICE 04/06/16 Piyush Pandey MD [place] Production Hand CARDIOVASCULAR DISEASE 04/06/16 12/28/23 Sharmila Davis APRN, STATION HELPER-C [address] [facility] [address] [place] [address] NURSE PRACTITIONER 01/04/17 04/03/24 Linda Block MD 619 [facility] [address] [place] [address] [place] Production Hand CLINICAL CARDIAC ELECTROPHYSIOLOGY 02/08/17 04/12/23 documented as of this encounter
--- OUTSIDE RECORDS SUMMARY | 2024-09-03 19:20 | XMS_ITS | Encounter Summary ---
Author Organization [facility] Address [address] [place] [address]. [place] [address] [place] [address] Care Team Providers Care Manager Global Communications Name Role Phone Piyush Pandey MD Unavailable UnavailMegan Rodriguez MD Primary Care Provider [phone] Sharmila Davis APRN, BUS AND RAIL OPERATOR-C Unavailable Linda Block MD Unavailable [phone] Encounter Details Date Type Department Care Team (Late st Contact Info) Description 04/24/[address] [facility] [address] [place] [address] Iker Rodriguez, [address] [place] [address] Social History Tobacco Use Types Packs/Day Years [...] st Contact Info) Description 09/25/2024 2:00 PM VERTICAL ROLL OPERATOR Appointment [facility] [address] [place] [address] Zayra Powell FNP [address] [place] [address] 10/16/2024 3:30 PM VERTICAL ROLL OPERATOR Office Visit [facility] [address] [place] [address] Brit Gonzáles MD 619 [place] [address] documented as of this encounter Visit Diagnoses Not on filedocumented in this encounter Care Teams Manager Global Communications Relationship Specialty Start Date End Date Megan Infante MD [address] [place] [address] PCP - General FAMILY PRACTICE 04/06/16 Piyush Pandey MD [place] Millinery Blocker CARDIOVASCULAR DISEASE 04/06/16 12/28/23 Sharmila Davis APRN, BUS AND RAIL OPERATOR-C 619 [facility] [address] [place] [address] NURSE PRACTITIONER 01/04/17 04/03/24 Linda Block MD 619 [facility] [address] [place] [address] [place] Millinery Blocker CLINICAL CARDIAC ELECTROPHYSIOLOGY 02/08/17 04/12/23 documented as of this encounter
--- OUTSIDE RECORDS SUMMARY | 2024-09-03 19:20 | XMS_ITS | Encounter Summary ---
Author Organization [facility] Address [address] [place] [address]. [place] [address] [place] [address] Care Team Providers Care 3D Modeler Name Role Phone Piyush Pandey MD Unavailable UnavailMegan Rodriguez MD Primary Care Provider [phone] Sharmila Davis APRN, PHOTOFLASH POWDER MIXER-C Unavailable [phone] Linda Block MD Unavailable [phone] Encounter Details Date Type Department Care Team (Late st Contact Info) Description 11/30/2003 Abstract [facility] CONVERSION [address] [place] [address] Matias Mac MD [address] [place] [address] Social History Tobacco Use Types Packs/Day Years [...] st Contact Info) Description 09/25/2024 2:00 PM NAUMKEAG OPERATOR Appointment [facility] [address] [place] [address] Zayra Powell, CONFORMAL PAD FORMER [address] [place] [address] 10/16/2024 3:30 PM NAUMKEAG OPERATOR Office Visit [facility] Gutierrez[address] [place] [address] Brit Gonzáles MD 619 [place] [address] documented as of this encounter Visit Diagnoses Not on filedocumented in this encounter Care Teams 3D Modeler Relationship Specialty Start Date End Date Megan Infante MD [address] [place] [phone] PCP - General FAMILY PRACTICE 04/06/16 Piyush Pandey MD [place] Blasting Cap Assembler CARDIOVASCULAR DISEASE 04/06/16 12/28/23 Sharmila Davis, SHERIFFS OFFICER, PHOTOFLASH POWDER MIXER-C 619 [facility] [address] [place] [address] NURSE PRACTITIONER 01/04/17 04/03/24 Linda Block MD 619 [facility] 47 [place] [address] [place] Blasting Cap Assembler CLINICAL CARDIAC ELECTROPHYSIOLOGY 02/08/17 04/12/23 documented as of this encounter
--- OUTSIDE RECORDS SUMMARY | 2024-09-03 19:20 | XMS_ITS | Encounter Summary ---
Author Organization [facility] Address [address] [place] [address]. [place] [address] [place] [address] Care Team Providers Care Lime Filter Operator Name Role Phone Piyush Pandey MD Unavailable Unavailabl Megan Leos MD Primary Care Provider [phone] Sharmila Davis APRN, EMBALMER APPRENTICE-C Unavailable Linda Block MD Unavailable [phone] Encounter Details Date Type Department Care Team (Late st Contact Info) Description 05/27/2000 Abstract [facility] [address] [place] [address] , Generic MD Nikhil Social [...] st Contact Info) Description 09/25/2024 2:00 PM LUNCHROOM WORKER Appointment [facility] [address] [place] [address] Zayra Powell, LANDSCAPE FOREMAN [address] [place] [address] 10/16/2024 3:30 PM LUNCHROOM WORKER Office Visit [facility] [address] [place] [phone] Brit Gonzáles MD [address] [place] [address] documented as of this encounter Visit Diagnoses Not on filedocumented in this encounter Care Teams Lime Filter Operator Relationship Specialty Start Date End Date Megan Infante MD [address] [facility] [place] [address] PCP - General FAMILY PRACTICE 04/06/16 Piyush Pandey MD [place] Hydraulic Oil Tool Operator CARDIOVASCULAR DISEASE 04/06/16 12/28/23 Sharmila Davis APRN, EMBALMER APPRENTICE-C [address] [facility] [address]P57 [place] [address] NURSE PRACTITIONER 01/04/17 04/03/24 Linda Block MD 6[address] [facility] [address] [place] [address] [place] Hydraulic Oil Tool Operator CLINICAL CARDIAC ELECTROPHYSIOLOGY 02/08/17 04/12/23 documented as of this encounter
--- OUTSIDE RECORDS SUMMARY | 2024-09-03 19:20 | XMS_ITS | Encounter Summary ---
Author Organization [facility] Address [address] [place] [address]. [place] [address] [place] [address] Care Team Providers Care Industrial Diamond Polisher Name Role Phone Piyush Pandey MD Unavailable Unavailabl Megan Leos MD Primary Care Provider [phone] Sharmila Davis APRN, MATERIAL DISPOSITION INSPECTOR-C Unavailable Linda Block MD Unavailable [phone] Encounter Details Date Type Department Care Team (Late st Contact Info) Description 04/29/2000 Abstract [facility] [address] [place] [address] , Generic MD Nikhil Social [...] st Contact Info) Description 09/25/2024 2:00 PM JOURNEYMAN MACHINIST Appointment [facility] [address] [place] [address] Zayra Powell, MANAGER BUDGET [address] [place] [address] 10/16/2024 3:30 PM JOURNEYMAN MACHINIST Office Visit [facility] [address] [place] [phone] Brit Gonzáles MD [address] [place] [address] documented as of this encounter Visit Diagnoses Not on filedocumented in this encounter Care Teams Industrial Diamond Polisher Relationship Specialty Start Date End Date Megan Infante MD [address] [facility] [place] [address] PCP - General FAMILY PRACTICE 04/06/16 Piyush Pandey MD [place] Air Conditioning Installer CARDIOVASCULAR DISEASE 04/06/16 12/28/23 Sharmila Davis APRN, MATERIAL DISPOSITION INSPECTOR-C [address] [facility] [address]57 [place] [address] NURSE PRACTITIONER 01/04/17 04/03/24 Linda Block MD 619 [facility] [address] [place] [address] [place] Air Conditioning Installer CLINICAL CARDIAC ELECTROPHYSIOLOGY 02/08/17 04/12/23 documented as of this encounter
--- OUTSIDE RECORDS SUMMARY | 2024-09-03 19:20 | XMS_ITS | Encounter Summary ---
Author Organization [facility] Address [address] [place] [address]. [place] [address] [place] [address] Care Team Providers Care Jtac Name Role Phone Piyush Pandey MD Unavailable UnavailMegan Rodriguez MD Primary Care Provider [phone] Sharmila Davis APRN, ETHNOARCHAEOLOGIST-C Unavailable [phone] Linda Block MD Unavailable [phone] Encounter Details Date Type Department Care Team (Late st Contact Info) Description 12/11/[address] [facility] [address] [place] [address] Matias Mac MD [address] [place] [address] Social History Tobacco Use Types Packs/Day Years [...] st Contact Info) Description 09/25/2024 2:00 PM DIABETES CLINICAL MANAGER Appointment [facility] [address] [place] [address] Zayra Powell FNP [address] [place] [address] 10/16/2024 3:30 PM DIABETES CLINICAL MANAGER Office Visit [facility] Gutierrez[address] [place] [address] Brit Gonzáles MD 619 [place] [address] documented as of this encounter Visit Diagnoses Not on filedocumented in this encounter Care Teams Jtac Relationship Specialty Start Date End Date Megan Infante MD [address] [place] [address] PCP - General FAMILY PRACTICE 04/06/16 Piyush Pandey MD [place] Paid Intern CARDIOVASCULAR DISEASE 04/06/16 12/28/23 Sharmila Davis, ASSIGNER, ETHNOARCHAEOLOGIST-C 619 [facility] [address] [place] [address] NURSE PRACTITIONER 01/04/17 04/03/24 Linda Block MD 619 [facility] [address] [place] [address] [place] Paid Intern CLINICAL CARDIAC ELECTROPHYSIOLOGY 02/08/17 04/12/23 documented as of this encounter
--- OUTSIDE RECORDS SUMMARY | 2024-09-03 19:20 | XMS_ITS | Encounter Summary ---
Author Organization [facility] Address [address] [place] [address]. [place] [address] [place] [address] Care Team Providers Care Administrative Assistant Data Entry Name Role Phone Piyush Pandey MD Unavailable Unavailabl Megan Leos MD Primary Care Provider [phone] Sharmila Davis APRN MARKETING PROPOSAL SPECIALIST-C Unavailable Linda Block MD Unavailable [phone] Encounter Details Date Type Department Care Team (Late st Contact Info) Description 10/22/2000 Abstract [facility] [address] [place] [address] , Generic MD Nikhil Social [...] st Contact Info) Description 09/25/2024 2:00 PM SQL PROGRAMMER ANALYST Appointment [facility] [address] [place] [address] Zayra Powell, OCEANIC SCIENCES PROFESSOR [address] [place] [address] 10/16/2024 3:30 PM SQL PROGRAMMER ANALYST Office Visit [facility] [address] [place] [phone] Brit Gonzáles MD [address] [place] [address] documented as of this encounter Visit Diagnoses Not on filedocumented in this encounter Care Teams Administrative Assistant Data Entry Relationship Specialty Start Date End Date Megan Infante MD [address] [facility] [place] [address] PCP - General FAMILY PRACTICE 04/06/16 Piyush Pandey MD [place] Pig Casting Machine Operator CARDIOVASCULAR DISEASE 04/06/16 12/28/23 Sharmila Davis APRN, MARKETING PROPOSAL SPECIALIST-C 619 [facility] [address] [place] [address] NURSE PRACTITIONER 01/04/17 04/03/24 Linda Block MD 619 [facility] 4P[address] [place] [address] Thor Pig Casting Machine Operator CLINICAL CARDIAC ELECTROPHYSIOLOGY 02/08/17 04/12/23 documented as of this encounter
--- OUTSIDE RECORDS SUMMARY | 2024-09-03 19:20 | XMS_ITS | Encounter Summary ---
Author Organization [facility] Address [address] [place] [address]. [place] [address] [place] [address] Care Team Providers Care Loss Prevention/Safety District Manager Name Role Phone Piyush Pandey MD Unavailable Unavailabl Megan Leos MD Primary Care Provider [phone] Sharmila Davis APRN, SOLARIS ADMINISTRATOR-C Unavailable Linda Block MD Unavailable [phone] Encounter Details Date Type Department Care Team (Late st Contact Info) Description 02/22/2002 Abstract [facility] [address] [place] [address] , Generic MD Nikhil Social [...] st Contact Info) Description 09/25/2024 2:00 PM LEASE ADMINISTRATION SUPERVISOR Appointment [facility] [address] [place] [address] Zayra Powell, UNIT DIRECTOR [address] [place] [address] 10/16/2024 3:30 PM LEASE ADMINISTRATION SUPERVISOR Office Visit [facility] [address] [place] [phone] Brit Gonzáles MD [address] [place] [address] documented as of this encounter Visit Diagnoses Not on filedocumented in this encounter Care Teams Loss Prevention/Safety District Manager Relationship Specialty Start Date End Date Megan Infante MD [address] [facility] [place] [address] PCP - General FAMILY PRACTICE 04/06/16 Piyush Pandey MD [place] Network/Telecom Engineer CARDIOVASCULAR DISEASE 04/06/16 12/28/23 Sharmila Davis APRN, SOLARIS ADMINISTRATOR-C 619 [facility] [address]P57 [place] [address] NURSE PRACTITIONER 01/04/17 04/03/24 Linda Block MD 619 [facility] [address] [place] [address] [place] Network/Telecom Engineer CLINICAL CARDIAC ELECTROPHYSIOLOGY 02/08/17 04/12/23 documented as of this encounter
--- OUTSIDE RECORDS SUMMARY | 2024-09-03 19:20 | XMS_ITS | Encounter Summary ---
Author Organization [facility] Address [address] [place] [address]. [place] [address] [place] [address] Care Team Providers Care Suit Maker Name Role Phone Piyush Pandey MD Unavailable Unavailabl Megan Leos MD Primary Care Provider [phone] Sharmila Davis APRN, OBSTETRICS GYNECOLOGY PHYSICIAN-C Unavailable Linda Block MD Unavailable [phone] Encounter Details Date Type Department Care Team (Late st Contact Info) Description 07/29/2000 Abstract [facility] CON[facility] [address] [place] [address] , Generic MD Nikhil Social [...] st Contact Info) Description 09/25/2024 2:00 PM STOPPING BUILDER Appointment [facility] [address] [place] [address] Zayra Powell, LABORER SAWMILL [address] [place] [address] 10/16/2024 3:30 PM STOPPING BUILDER Office Visit [facility] [address] [place] [phone] Brit Gonzáles MD [address] [place] [address] documented as of this encounter Visit Diagnoses Not on filedocumented in this encounter Care Teams Suit Maker Relationship Specialty Start Date End Date Megan Infante MD [address] [facility] [place] [phone] PCP - General FAMILY PRACTICE 04/06/16 Piyush Pandey MD [place] Chinese Medicine Practitioner CARDIOVASCULAR DISEASE 04/06/16 12/28/23 Sharmila Davis APRN, OBSTETRICS GYNECOLOGY PHYSICIAN-C 619 [facility] [address]P57 [place] [address] NURSE PRACTITIONER 01/04/17 04/03/24 Linda Block MD 619 [facility] [address] [place] [address] [place] Chinese Medicine Practitioner CLINICAL CARDIAC ELECTROPHYSIOLOGY 02/08/17 04/12/23 documented as of this encounter
--- OUTSIDE RECORDS SUMMARY | 2024-09-03 19:20 | XMS_ITS | Encounter Summary ---
Author Organization [facility] Address [address] [place] [address]. [place] [address] [place] [address] Care Team Providers Care Piecer Name Role Phone Piyush Pandey MD Unavailable Unavailabl Megan Leos MD Primary Care Provider [phone] Sharmila Davis APRN, SIGN WRITER HAND-C Unavailable Linda Block MD Unavailable [phone] Encounter Details Date Type Department Care Team (Late st Contact Info) Description 06/30/2000 Abstract [facility] [address] [place] [address] , Generic MD Nikhil Social [...] st Contact Info) Description 09/25/2024 2:00 PM EMS HELICOPTER PILOT Appointment [facility] [address] [place] [address] Zayra Powell, LENS BLANK GAUGER [address] [place] [address] 10/16/2024 3:30 PM EMS HELICOPTER PILOT Office Visit [facility] [address] [place] [phone] Brit Gonzáles MD [address] [place] [address] documented as of this encounter Visit Diagnoses Not on filedocumented in this encounter Care Teams Piecer Relationship Specialty Start Date End Date Megan Infante MD [address] [facility] [place] [address] PCP - General FAMILY PRACTICE 04/06/16 Piyush Pandey MD [place] Front Line Leader CARDIOVASCULAR DISEASE 04/06/16 12/28/23 Sharmila Davis APRN, SIGN WRITER HAND-C 619 [facility] [address] [place] [address] NURSE PRACTITIONER 01/04/17 04/03/24 Linda Block MD 619 [facility] [address] [place] [address] [place] Front Line Leader CLINICAL CARDIAC ELECTROPHYSIOLOGY 02/08/17 04/12/23 documented as of this encounter
--- OUTSIDE RECORDS SUMMARY | 2024-09-03 19:20 | XMS_ITS | Encounter Summary ---
Author Organization [facility] Address [address] [place] [address]. [place] [address] [place] [address] Care Team Providers Care Costuming Supervisor Name Role Phone Piyush Pandey MD Unavailable Unavailabl Megan Leos MD Primary Care Provider [phone] Sharmila Davis APRN, PARENTING SKILLS INSTRUCTOR-C Unavailable Linda Block MD Unavailable [phone] Encounter Details Date Type Department Care Team (Late st Contact Info) Description 03/17/2000 Abstract [facility] CON[facility] [address] [place] [address] , Generic MD Nikhil Social [...] st Contact Info) Description 09/25/2024 2:00 PM TIMBER MANAGEMENT TECHNICIAN Appointment [facility] [address] [place] [address] Zayra Powell, COMMUNITY RELATIONS POLICE LIEUTENANT [address] [place] [address] 10/16/2024 3:30 PM TIMBER MANAGEMENT TECHNICIAN Office Visit [facility] [address] [place] [phone] Brit Gonzáles MD [address] [place] [address] documented as of this encounter Visit Diagnoses Not on filedocumented in this encounter Care Teams Costuming Supervisor Relationship Specialty Start Date End Date Megan Infante MD [address] [facility] [place] [address] PCP - General FAMILY PRACTICE 04/06/16 Piyush Pandey MD [place] Residential Leasing Agent CARDIOVASCULAR DISEASE 04/06/16 12/28/23 Sharmila Davis APRN, PARENTING SKILLS INSTRUCTOR-C 619 [facility] [address] [place] [address] NURSE PRACTITIONER 01/04/17 04/03/24 Linda Block MD 619 [facility] [address] [place] [address] [place] Residential Leasing Agent CLINICAL CARDIAC ELECTROPHYSIOLOGY 02/08/17 04/12/23 documented as of this encounter
--- OUTSIDE RECORDS SUMMARY | 2024-09-03 19:20 | XMS_ITS | Encounter Summary ---
Author Organization [facility] Address [address] [place] [address]. [place] [address] [place] [address] Care Team Providers Care Human Resources Records Clerk Name Role Phone Piyush Pandey MD Unavailable Unavailabl Megan Leos MD Primary Care Provider [phone] Sharmila Davis APRN, INDUSTRIAL SPRAYPAINTER-C Unavailable Linda Block MD Unavailable [phone] Encounter Details Date Type Department Care Team (Late st Contact Info) Description 10/01/2003 Abstract [facility] CONVERSION [address] [place] [address] , Generic MD Nikhil Social [...] st Contact Info) Description 09/25/2024 2:00 PM SLATE TRIMMER Appointment [facility] [address] [place] [address] Zayra Powell, DAIRY FARM MANAGER [address] [place] [address] 10/16/2024 3:30 PM SLATE TRIMMER Office Visit [facility] [address] [place] [address] Brit Gonzáles MD [address] [place] [address] documented as of this encounter Visit Diagnoses Not on filedocumented in this encounter Care Teams Human Resources Records Clerk Relationship Specialty Start Date End Date Megan Infante MD [address] [facility] [place] [address] PCP - General FAMILY PRACTICE 04/06/16 Piyush Pandey MD [place] [facility] Nurse CARDIOVASCULAR DISEASE 04/06/16 12/28/23 Sharmila Davis APRN, INDUSTRIAL SPRAYPAINTER-C [address] [facility] [address] [place] [address] NURSE PRACTITIONER 01/04/17 04/03/24 Linda Block MD 619 [facility] [address] [place] [address] [place] [facility] Nurse CLINICAL CARDIAC ELECTROPHYSIOLOGY 02/08/17 04/12/23 documented as of this encounter
--- OUTSIDE RECORDS SUMMARY | 2024-09-03 19:20 | XMS_ITS | Encounter Summary ---
Author Organization [facility] Address [facility] [place] [address] [place] [address] Care Team Providers Care Straight Slicing Machine Operator Name Role Phone Piyush Pandey MD Unavailable Unavailabl e Megan Infante MD Primary Care Provider [phone] Sharmila Davis APRN COLD STRIP ROLLER-C Unavailable Linda Block MD Unavailable [phone] Encounter Details Date Type Department Care Team (Late st Contact Info) Description 09/20/2000 Abstract [facility] [address] [address] Social History Tobacco Use Types Packs/Day Years [...] st Contact Info) Description 09/25/2024 2:00 PM DOT COMPLIANCE COORDINATOR Appointment [facility] [address] [place] [address] Zayra Powell, CAR RETARDER OPERATOR [address] [place] [address] 10/16/2024 3:30 PM DOT COMPLIANCE COORDINATOR Office Visit [facility] [address] [place] [phone] Brit Gonzáles MD 619 [place] [address] documented as of this encounter Visit Diagnoses Not on filedocumented in this encounter Care Teams Straight Slicing Machine Operator Relationship Specialty Start Date End Date Megan Infante MD [address] [facility] [place] [address] PCP - General FAMILY PRACTICE 04/06/16 Piyush Pandey MD [place] Test Automation Architect CARDIOVASCULAR DISEASE 04/06/16 12/28/23 Sharmila Davis APRN, COLD STRIP ROLLER-C 619 [facility] [address] [place] [address] NURSE PRACTITIONER 01/04/17 04/03/24 Linda Block MD 619 [facility] [address] [address] [place] Test Automation Architect CLINICAL CARDIAC ELECTROPHYSIOLOGY 02/08/17 04/12/23 documented as of this encounter
--- OUTSIDE RECORDS SUMMARY | 2024-09-03 19:20 | XMS_ITS | Encounter Summary ---
Author Organization [facility] Address [address] [place] [address]. [place] [address] [place] [address] Care Team Providers Care Yard Switcher Name Role Phone Piyush Pandey MD Unavailable UnavailMegan Rodriguez MD Primary Care Provider [phone] Sharmila Davis APRN FISH HATCHERY SUPERVISOR-C Unavailable [phone] Linda Block MD Unavailable [phone] Encounter Details Date Type Department Care Team (Late st Contact Info) Description 10/29/2005 Abstract [facility] CON[facility] [address] [place], [place] [address] Palomo Ponce MD [facility] [place] [address] Social History Tobacco Use Types [...] st Contact Info) Description 09/25/2024 2:00 PM COUNTERSINKER BALANCE SCREW HOLE Appointment [facility] [address] [address] Zayra Powell, MACHINE PAINT MIXER [address] [place] [address] 10/16/2024 3:30 PM COUNTERSINKER BALANCE SCREW HOLE Office Visit [facility] [place] [address] Brit Gonzáles MD 619 [place] [address] documented as of this encounter Visit Diagnoses Not on filedocumented in this encounter Care Teams Yard Switcher Relationship Specialty Start Date End Date Megan Infante MD [address] [place] [address] PCP - General FAMILY PRACTICE 04/06/16 Piyush Pandey MD [place] Supervisor Records Change CARDIOVASCULAR DISEASE 04/06/16 12/28/23 Sharmila Davis, DANNY, FISH HATCHERY SUPERVISOR-C 619 [facility] [address] [place] [address] NURSE PRACTITIONER 01/04/17 04/03/24 Linda Block MD 619 [facility] [address] [place] [address] [place] Supervisor Records Change CLINICAL CARDIAC ELECTROPHYSIOLOGY 02/08/17 04/12/23 documented as of this encounter
--- OUTSIDE RECORDS SUMMARY | 2024-09-03 19:20 | XMS_ITS | Encounter Summary ---
Author Organization [facility] Address [address] [place] [address]. [place] [address] [place] [address] Care Team Providers Care Breeder Service Technician Name Role Phone Piyush Pandey MD Unavailable Unavailabl Megan Leos MD Primary Care Provider [phone] Sharmila Davis APRN AIR CONDITIONING EQUIPMENT MECHANIC-C Unavailable Linda Block MD Unavailable [phone] Encounter Details Date Type Department Care Team (Late st Contact Info) Description 05/31/2003 Abstract [facility] CONVERSION [address] [place] [address] , Generic MD Nikhil Social [...] st Contact Info) Description 09/25/2024 2:00 PM BIOFUELS PLANT SUPERINTENDENT Appointment [facility] [address] [place] [address] Zayra Powell, MACHINE TECH [address] [place] [address] 10/16/2024 3:30 PM BIOFUELS PLANT SUPERINTENDENT Office Visit [facility] [address] [place] [address] Brit Gonzáles MD [address] [place] [address] documented as of this encounter Visit Diagnoses Not on filedocumented in this encounter Care Teams Breeder Service Technician Relationship Specialty Start Date End Date Megan Infante MD [address] [facility] [place] [address] PCP - General FAMILY PRACTICE 04/06/16 Piyush Pandey MD [place] Cartridge Assembling Machine Adjuster CARDIOVASCULAR DISEASE 04/06/16 12/28/23 Sharmila Davis APRN, AIR CONDITIONING EQUIPMENT MECHANIC-C 619 [facility] [address] [place] [address] NURSE PRACTITIONER 01/04/17 04/03/24 Linda Block MD 619 [facility] [address] [place] [address] [place] Cartridge Assembling Machine Adjuster CLINICAL CARDIAC ELECTROPHYSIOLOGY 02/08/17 04/12/23 documented as of this encounter
--- OUTSIDE RECORDS SUMMARY | 2024-09-03 19:20 | XMS_ITS | Encounter Summary ---
Author Organization [facility] Address [address] [place] [address]. [place] [address] [place] [address] Care Team Providers Care Distribution A Class Lineman Name Role Phone Piyush Pandey MD Unavailable Unavailabl Megan Leos MD Primary Care Provider [phone] Sharmila Davis APRN BEHAVIOUR SUPPORT TEACHER-C Unavailable Linda Block MD Unavailable [phone] Encounter Details Date Type Department Care Team (Late st Contact Info) Description 10/01/2000 Abstract [facility] CONVERSION [address] [place] [address] , Generic MD Nikhil Social [...] st Contact Info) Description 09/25/2024 2:00 PM PRIZE FIGHTER Appointment [facility] [address] [place] [address] Zayra Powell, BATTALION CHIEF [address] [place] [address] 10/16/2024 3:30 PM PRIZE FIGHTER Office Visit [facility] [address] [place] [phone] Brit Gonzáles MD [address] [place] [address] documented as of this encounter Visit Diagnoses Not on filedocumented in this encounter Care Teams Distribution A Class Lineman Relationship Specialty Start Date End Date Megan Infante MD [address] [facility] [place] [address] PCP - General FAMILY PRACTICE 04/06/16 Piyush Pandey MD [place] Control Clerk Repairs CARDIOVASCULAR DISEASE 04/06/16 12/28/23 Sharmila Davis APRN, BEHAVIOUR SUPPORT TEACHER-C 619 [facility] [address] [place] [address] NURSE PRACTITIONER 01/04/17 04/03/24 Linda Block MD 619 [facility] [address] [place] [address] [place] Control Clerk Repairs CLINICAL CARDIAC ELECTROPHYSIOLOGY 02/08/17 04/12/23 documented as of this encounter
--- OUTSIDE RECORDS SUMMARY | 2024-09-03 19:20 | XMS_ITS | Encounter Summary ---
Author Organization [facility] Address [address] [place] [address]. [place] [address] [place] [address] Care Team Providers Care Broaching Machine Repairer Name Role Phone Piyush Pandey MD Unavailable Unavailabl Megan Leos MD Primary Care Provider [phone] Sharmila Davis APRN, RETAIL GIFT CARD MERCHANDISING-C Unavailable [phone] Linda Block MD Unavailable [phone] Encounter Details Date Type Department Care Team (Late st Contact Info) Description 02/21/2003 Abstract SFL CONVERSION [address] [place] [address] , Generic MD Nikhil Social [...] st Contact Info) Description 09/25/2024 2:00 PM SANITATION TRUCK DRIVER Appointment [facility] [address] [place] [address] Zayra Powell, TRANSPORTATION DEPARTMENT HEAD [address] [place] [address] 10/16/2024 3:30 PM SANITATION TRUCK DRIVER Office Visit [facility] [address] [place] [phone] Brit Gonzáles MD [address] [place] [address] documented as of this encounter Visit Diagnoses Not on filedocumented in this encounter Care Teams Broaching Machine Repairer Relationship Specialty Start Date End Date Megan Infante MD [address] [facility] [place] [address] PCP - General FAMILY PRACTICE 04/06/16 Piyush Pandey MD [place] Kiln Labourer CARDIOVASCULAR DISEASE 04/06/16 12/28/23 Sharmila Davis APRN, RETAIL GIFT CARD MERCHANDISING-C [address] [facility] [address] [place] [address] NURSE PRACTITIONER 01/04/17 04/03/24 Linda Block MD 619 [facility] [address] [place] [address] [place] Kiln Labourer CLINICAL CARDIAC ELECTROPHYSIOLOGY 02/08/17 04/12/23 documented as of this encounter
--- OUTSIDE RECORDS SUMMARY | 2024-09-03 19:20 | XMS_ITS | Encounter Summary ---
Author Organization [facility] Address [address] [place] [address]. [place] [address] [place] [address] Care Team Providers Care Customer Support Associate Name Role Phone Piyush Pandey MD Unavailable Unavailabl Megan Leos MD Primary Care Provider [phone] Sharmila Davis APRN HR DIRECTOR-C Unavailable [phone] Linda Block MD Unavailable [phone] Encounter Details Date Type Department Care Team (Late st Contact Info) Description 02/28/2003 Abstract SFL CONVERSION [address] [place] [address] , Generic MD Nikhil [...] st Contact Info) Description 09/25/2024 2:00 PM BICYCLE REPAIR TECHNICIAN Appointment [facility] [address] [place] [address] Zayra Powell, HEMSTITCHING MACHINE OPERATOR [address] [place] [address] 10/16/2024 3:30 PM BICYCLE REPAIR TECHNICIAN Office Visit [facility] [address] [place] [phone] Brit Gonzáles MD [address] [place] [address] documented as of this encounter Visit Diagnoses Not on filedocumented in this encounter Care Teams Customer Support Associate Relationship Specialty Start Date End Date Megan Infante MD [address] [facility] [place] [address] PCP - General FAMILY PRACTICE 04/06/16 Piyush Pandey MD [place] Information Specialist CARDIOVASCULAR DISEASE 04/06/16 12/28/23 Sharmila Davis APRN, HR DIRECTOR-C 619 [facility] [address] [place] [address] NURSE PRACTITIONER 01/04/17 04/03/24 Linda Block MD 619 [facility] [address] [place] [address] [place] Information Specialist CLINICAL CARDIAC ELECTROPHYSIOLOGY 02/08/17 04/12/23 documented as of this encounter
--- OUTSIDE RECORDS SUMMARY | 2024-09-03 19:20 | XMS_ITS | Encounter Summary ---
Author Organization [facility] Address [address] [place] [address]. [place] [address] [place] [address] Care Team Providers Care Oil Well Logger Name Role Phone Piyush Pandey MD Unavailable Unavailabl Megan Leos MD Primary Care Provider [phone] Sharmila Davis APRN, DOCK MANAGER-C Unavailable Linda Block MD Unavailable [phone] Encounter Details Date Type Department Care Team (Late st Contact Info) Description 10/15/2003 Abstract SFL CONVERSION [address] [place] [address] , Generic MD Nikhil Social [...] st Contact Info) Description 09/25/2024 2:00 PM QUILL WINDER Appointment [facility] [address] [place] [address] Zayra Powell, DUPLICATOR PUNCH OPERATOR [address] [place] [address] 10/16/2024 3:30 PM QUILL WINDER Office Visit [facility] [address] [place] [phone] Brit Gonzáles MD [address] [place] [address] documented as of this encounter Visit Diagnoses Not on filedocumented in this encounter Care Teams Oil Well Logger Relationship Specialty Start Date End Date Megan Infante MD [address] [facility] [place] [address] PCP - General FAMILY PRACTICE 04/06/16 Piyush Pandey MD [employer] CARDIOVASCULAR DISEASE 04/06/16 12/28/23 Sharmila Davis APRN, DOCK MANAGER-C [address] [facility] [address] [place] [address] NURSE PRACTITIONER 01/04/17 04/03/24 Linda Block MD 619 [facility] [address] [place] [address] Breaks Manager Company CLINICAL CARDIAC ELECTROPHYSIOLOGY 02/08/17 04/12/23 documented as of this encounter
--- OUTSIDE RECORDS SUMMARY | 2024-09-03 19:20 | XMS_ITS | Encounter Summary ---
Author Organization [facility] Address [address] [place] [address]. [place] [address] [place] [address] Care Team Providers Care Patrol Driver Name Role Phone Piyush Pandey MD Unavailable UnavailMegan Rodriguez MD Primary Care Provider [phone] Sharmila Davis APRN, ACETYLENE PLANT OPERATOR-C Unavailable Linda Block MD Unavailable [phone] Encounter Details Date Type Department Care Team (Late st Contact Info) Description 09/17/2003 Abstract SFL CONVERSION [address] [place] [address] Matias Mac MD [address] [place] [address] Social History Tobacco Use Types Packs/Day Years [...] Contact Info) Description 09/25/2024 2:00 PM ASSEMBLY ADJUSTER Appointment [facility] [address] [place] [address] Zayra Powell, COLLISION ESTIMATOR [address] [place] [address] 10/16/2024 3:30 PM ASSEMBLY ADJUSTER Office Visit [facility] [address] [place] [address] Brit Gonzáles MD 619 [place] [address] documented as of this encounter Visit Diagnoses Not on filedocumented in this encounter Care Teams Patrol Driver Relationship Specialty Start Date End Date Megan Infante MD [address] [place] [phone] PCP - General FAMILY PRACTICE 04/06/16 Piyush Pandey MD [place] Chief Chemist CARDIOVASCULAR DISEASE 04/06/16 12/28/23 Sharmila Davis, RECYCLE COORDINATOR, ACETYLENE PLANT OPERATOR-C 619 [facility] [address] [place] [address] NURSE PRACTITIONER 01/04/17 04/03/24 Linda Block MD [address] [facility] 47 [place] [address] [place] Chief Chemist CLINICAL CARDIAC ELECTROPHYSIOLOGY 02/08/17 04/12/23 documented as of this encounter
--- OUTSIDE RECORDS SUMMARY | 2024-09-03 19:20 | XMS_ITS | Encounter Summary ---
Author Organization [facility] Address [address] [place] [address]. [place] [address] [place] [address] Care Team Providers Care Wafer Fabricator Name Role Phone Piyush Pandey MD Unavailable Unavailabl Megan Leos MD Primary Care Provider [phone] Sharmila Davis APRN ER MEDICAL TECHNICIAN-C Unavailable Linda Block MD Unavailable [phone] Encounter Details Date Type Department Care Team (Late st Contact Info) Description 03/08/2000 Abstract SFL CONVERSION [address] [place] [address] , Generic MD Nikhil Social [...] Contact Info) Description 09/25/2024 2:00 PM ART INSTRUCTOR Appointment [facility] [address] [place] [address] Zayra Powell, REMOTE SENSING RESEARCH SCIENTIST [address] [place] [address] 10/16/2024 3:30 PM ART INSTRUCTOR Office Visit [facility] [address] [place] [address] Brit Gonzáles MD [address] [place] [address] documented as of this encounter Visit Diagnoses Not on filedocumented in this encounter Care Teams Wafer Fabricator Relationship Specialty Start Date End Date Megan Infante MD [address] [facility] [place] [address] PCP - General FAMILY PRACTICE 04/06/16 Piyush Pandey MD [place] Pressurizer CARDIOVASCULAR DISEASE 04/06/16 12/28/23 Sharmila Davis APRN, ER MEDICAL TECHNICIAN-C 619 [facility] [address] [place] [address] NURSE PRACTITIONER 01/04/17 04/03/24 Linda Block MD 619 [facility] [address] [place] [address] [place] Pressurizer CLINICAL CARDIAC ELECTROPHYSIOLOGY 02/08/17 04/12/23 documented as of this encounter
--- OUTSIDE RECORDS SUMMARY | 2024-09-03 19:20 | XMS_ITS | Encounter Summary ---
Author Organization [facility] Address [address] [place] [address]. [place] [address] [place] [address] Care Team Providers Care Wood Turner Name Role Phone Piyush Pandey MD Unavailable Unavailabl Megan Leos MD Primary Care Provider [phone] Sharmila Davis APRN, PERIODICALS LIBRARY ASSISTANT-C Unavailable Linda Block MD Unavailable [phone] Encounter Details Date Type Department Care Team (Late st Contact Info) Description 01/19/2003 Abstract SFL CONVERSION [address] [place] [address] , Generic MD Nikhil Social [...] st Contact Info) Description 09/25/2024 2:00 PM FOUR SLIDE MACHINE OPERATOR Appointment [facility] [address] [place] [address] Zayra Powell, WORKER'S COMPENSATION CLAIMS EXAMINER [address] [place] [address] 10/16/2024 3:30 PM FOUR SLIDE MACHINE OPERATOR Office Visit [facility] [address] [place] [phone] Brit Gonzáles MD [address] [place] [address] documented as of this encounter Visit Diagnoses Not on filedocumented in this encounter Care Teams Wood Turner Relationship Specialty Start Date End Date Megan Infante MD [address] [facility] [place] [address] PCP - General FAMILY PRACTICE 04/06/16 Piyush Pandey MD [place] [employer] Aide CARDIOVASCULAR DISEASE 04/06/16 12/28/23 Sharmila Davis APRN, PERIODICALS LIBRARY ASSISTANT-C 619 [facility] [address] [place] [address] NURSE PRACTITIONER 01/04/17 04/03/24 Linda Block MD 619 [facility] [address] [place] [address] [place] School Aide CLINICAL CARDIAC ELECTROPHYSIOLOGY 02/08/17 04/12/23 documented as of this encounter
--- OUTSIDE RECORDS SUMMARY | 2024-09-03 19:20 | XMS_ITS | Encounter Summary ---
Author Organization [facility] Address [address] [place] [address]. [place] [address] [place] [address] Care Team Providers Care Stiff Straw Hat Washer Name Role Phone Piyush Pandey MD Unavailable UnavailMegan Rodriguez MD Primary Care Provider [phone] Sharmila Davis APRN, AVIATION TECHNICAL SYSTEMS SPECIALIST-C Unavailable Linda Block MD Unavailable [phone] Encounter Details Date Type Department Care Team (Late st Contact Info) Description 10/03/2002 Abstract SFL CONVERSION [address] [place] [address] Matias Mac MD [address] [place] [address] Social History Tobacco Use Types Packs/Day Years [...] st Contact Info) Description 09/25/2024 2:00 PM LIVE SOURCE OPERATOR Appointment [facility] [address] [place] [address] Zayra Powell, IRON GUARDRAIL INSTALLER [address] [place] [address] 10/16/2024 3:30 PM LIVE SOURCE OPERATOR Office Visit [facility] [address]rez[address] [place] [address] Brit Gonzáles MD 619 [place] [address] documented as of this encounter Visit Diagnoses Not on filedocumented in this encounter Care Teams Stiff Straw Hat Washer Relationship Specialty Start Date End Date Megan Infante MD [address] [place] [phone] PCP - General FAMILY PRACTICE 04/06/16 Piyush Pandey MD [place] Patent Agent CARDIOVASCULAR DISEASE 04/06/16 12/28/23 Sharmila Davis, SLOT SERVICE SPECIALIST, AVIATION TECHNICAL SYSTEMS SPECIALIST-C 619 [facility] [address] [place] [address] NURSE PRACTITIONER 01/04/17 04/03/24 Linda Block MD 619 [facility] 47 [place] [address] [place] Patent Agent CLINICAL CARDIAC ELECTROPHYSIOLOGY 02/08/17 04/12/23 documented as of this encounter
--- OUTSIDE RECORDS SUMMARY | 2024-09-03 19:20 | XMS_ITS | Encounter Summary ---
Author Organization [facility] Address [address] [place] [address]. [place] [address] [place] [address] Care Team Providers Care Bmx Rider Name Role Phone Piyush Pandey MD Unavailable Unavailabl Megan Leos MD Primary Care Provider [phone] Sharmila Davis APRN BAGGING SALVAGER-C Unavailable Linda Block MD Unavailable [phone] Encounter Details Date Type Department Care Team (Late st Contact Info) Description 12/16/2000 Abstract SFL CONVERSION [address] [place] [address] , Generic MD Nikhil Social [...] st Contact Info) Description 09/25/2024 2:00 PM REIMBURSEMENT AUDITOR Appointment [facility] [address] [place] [address] Zayra Powell, HARDBOARD GRINDER [address] [place] [address] 10/16/2024 3:30 PM REIMBURSEMENT AUDITOR Office Visit [facility] [address] [place] [phone] Brit Gonzáles MD [address] [place] [address] documented as of this encounter Visit Diagnoses Not on filedocumented in this encounter Care Teams Bmx Rider Relationship Specialty Start Date End Date Megan Infante MD [address] [facility] [place] [address] PCP - General FAMILY PRACTICE 04/06/16 Piyush Pandey MD [place] Operations Manager Assistant CARDIOVASCULAR DISEASE 04/06/16 12/28/23 Sharmila Davis APRN, BAGGING SALVAGER-C 619 [facility] [address] [place] [address] NURSE PRACTITIONER 01/04/17 04/03/24 Linda Block MD 619 [facility] [address] [place] [address] [place] Operations Manager Assistant CLINICAL CARDIAC ELECTROPHYSIOLOGY 02/08/17 04/12/23 documented as of this encounter
--- OUTSIDE RECORDS SUMMARY | 2024-09-03 19:20 | XMS_ITS | Encounter Summary ---
Author Organization [facility] Address [address] [place] [address]. [place] [address] [place] [address] Care Team Providers Care Dental Laboratory Technician Apprentice Name Role Phone Piyush Pandey MD Unavailable Unavailabl Megan Leos MD Primary Care Provider [phone] Sharmila Davis APRN FRUIT EXPRESS AGENT-C Unavailable Linda Block MD Unavailable [phone] Encounter Details Date Type Department Care Team (Late st Contact Info) Description 09/02/2000 Abstract SFL CONVERSION [address] [place] [address] , Generic MD Nikhil Social [...] st Contact Info) Description 09/25/2024 2:00 PM WAITER/WAITRESS THIRD CLASS Appointment [facility] [address] [place] [address] Zayra Powell, RICE MILLING SUPERVISOR [address] [place] [address] 10/16/2024 3:30 PM WAITER/WAITRESS THIRD CLASS Office Visit [facility] [address] [place] [address] Brit Gonzáles MD [address] [place] [address] documented as of this encounter Visit Diagnoses Not on filedocumented in this encounter Care Teams Dental Laboratory Technician Apprentice Relationship Specialty Start Date End Date Megan Infante MD [address] [facility] [place] [address] PCP - General FAMILY PRACTICE 04/06/16 Piyush Pandey MD [place] Autoclave Operator CARDIOVASCULAR DISEASE 04/06/16 12/28/23 Sharmila Davis APRN, FRUIT EXPRESS AGENT-C 619 [facility] [address] [place] [address] NURSE PRACTITIONER 01/04/17 04/03/24 Linda Block MD 619 [facility] [address] [place] [address] [place] Autoclave Operator CLINICAL CARDIAC ELECTROPHYSIOLOGY 02/08/17 04/12/23 documented as of this encounter
--- OUTSIDE RECORDS SUMMARY | 2024-09-03 19:20 | XMS_ITS | Encounter Summary ---
Author Organization [facility] Address [address] [place] [address]. [place] [address] [place] [address] Care Team Providers Care Special Services Director Name Role Phone Piyush Pandey MD Unavailable Unavailabl Megan Leos MD Primary Care Provider [phone] Sharmila Davis APRN, USER INTERFACE ENGINEER-C Unavailable Linda Block MD Unavailable [phone] Encounter Details Date Type Department Care Team (Late st Contact Info) Description 09/21/2002 Abstract SFL CONVERSION [address] [place] [address] , Generic MD Nikhil Social [...] st Contact Info) Description 09/25/2024 2:00 PM FISH TECHNOLOGIST Appointment [facility] [address] [place] [address] Zayra Powell, REFERENCE INVESTIGATOR [address] [place] [address] 10/16/2024 3:30 PM FISH TECHNOLOGIST Office Visit [facility] [address] [place] [phone] Brit Goználes MD [address] [place] [address] documented as of this encounter Visit Diagnoses Not on filedocumented in this encounter Care Teams Special Services Director Relationship Specialty Start Date End Date Megan Infante MD [address] [facility] [place] [address] PCP - General FAMILY PRACTICE 04/06/16 Piyush Pandey MD [place] Epic Cadence Analyst CARDIOVASCULAR DISEASE 04/06/16 12/28/23 Sharmila Davis APRN, USER INTERFACE ENGINEER-C 619 [facility] [address] [place] [address] NURSE PRACTITIONER 01/04/17 04/03/24 Linda Block MD 619 [facility] [address] [place] [address] [place] Epic Cadence Analyst CLINICAL CARDIAC ELECTROPHYSIOLOGY 02/08/17 04/12/23 documented as of this encounter
--- OUTSIDE RECORDS SUMMARY | 2024-09-03 19:20 | XMS_ITS | Encounter Summary ---
Author Organization [facility] Address [address] [place] [address]. [place] [address] [place] [address] Care Team Providers Care Computer Systems Auditor Name Role Phone Piyush Pandey MD Unavailable Unavailabl Megan Leos MD Primary Care Provider [phone] Sharmila Davis APRN, MOBILE LOUNGE DRIVER-C Unavailable Linda Block MD Unavailable [phone] Encounter Details Date Type Department Care Team (Late st Contact Info) Description 06/04/2000 Abstract SFL CONVERSION [address] [place] [address] , Generic MD Nikhil Social [...] Contact Info) Description 09/25/2024 2:00 PM SUPERVISOR TRANSCRIBING OPERATORS Appointment [facility] [address] [place] [address] Zayra Powell, SUPERVISOR PHOSPHORUS PROCESSING [address] [place] [address] 10/16/2024 3:30 PM SUPERVISOR TRANSCRIBING OPERATORS Office Visit [facility] [address] [place] [phone] Brit Gonzáles MD [address] [place] [address] documented as of this encounter Visit Diagnoses Not on filedocumented in this encounter Care Teams Computer Systems Auditor Relationship Specialty Start Date End Date Megan Infante MD [address] [facility] [place] [address] PCP - General FAMILY PRACTICE 04/06/16 Piyush Pandey MD [place] Pet Caretaker CARDIOVASCULAR DISEASE 04/06/16 12/28/23 Sharmila Davis APRN, MOBILE LOUNGE DRIVER-C 619 [facility] [address] [place] [address] NURSE PRACTITIONER 01/04/17 04/03/24 Linda Block MD 619 [facility] [address] [place] [address] [place] Pet Caretaker CLINICAL CARDIAC ELECTROPHYSIOLOGY 02/08/17 04/12/23 documented as of this encounter
--- OUTSIDE RECORDS SUMMARY | 2024-09-03 19:20 | XMS_ITS | Encounter Summary ---
Author Organization [facility] Address [address] [place] [address]. [place] [address] [place] [address] Care Team Providers Care Lamp Shade Joiner Name Role Phone Piyush Pandey MD Unavailable Unavailabl Megan Leos MD Primary Care Provider [phone] Sharmila Davis APRN, TRAVEL ATTENDANTS-C Unavailable Linda Block MD Unavailable [phone] Encounter Details Date Type Department Care Team (Late st Contact Info) Description 06/18/2000 Abstract SFL CONVERSION [address] [place] [address] , Generic MD Nikhil Social [...] st Contact Info) Description 09/25/2024 2:00 PM AEROSPACE QUALITY ENGINEER Appointment [facility] [address] [place] [address] Zayra Powell, TOOL AND MACHINE MAINTAINER [address] [place] [address] 10/16/2024 3:30 PM AEROSPACE QUALITY ENGINEER Office Visit [facility] [address] [place] [address] Brit Gonzáles MD [address] [place] [address] documented as of this encounter Visit Diagnoses Not on filedocumented in this encounter Care Teams Lamp Shade Joiner Relationship Specialty Start Date End Date Megan Infante MD [address] [facility] [place] [address] PCP - General FAMILY PRACTICE 04/06/16 Piyush Pandey MD [place] Mortgage Processing Clerk CARDIOVASCULAR DISEASE 04/06/16 12/28/23 Sharmila Davis APRN, TRAVEL ATTENDANTS-C 619 [facility] [address] [place] [address] NURSE PRACTITIONER 01/04/17 04/03/24 Linda Block MD 619 [facility] [address] [place] [address] [place] Mortgage Processing Clerk CLINICAL CARDIAC ELECTROPHYSIOLOGY 02/08/17 04/12/23 documented as of this encounter
--- OUTSIDE RECORDS SUMMARY | 2024-09-03 19:20 | XMS_ITS | Encounter Summary ---
Author Organization [facility] Address [address] [place] [address]. [place] [address] [place] [address] Care Team Providers Care Duck Farmer Name Role Phone Piyush Pandey MD Unavailable Unavailabl Megan Leos MD Primary Care Provider [phone] Sharmila Davis APRN, REMANUFACTURING TECHNICIAN-C Unavailable Linda Block MD Unavailable [phone] Encounter Details Date Type Department Care Team (Late st Contact Info) Description 02/07/2003 Abstract SFL CONVERSION [address] [place] [address] , Generic MD Nikhil Social [...] st Contact Info) Description 09/25/2024 2:00 PM FUSELAGE FRAMER Appointment [facility] [address] [place] [address] Zayra Powell, GIS TECHNICIAN [address] [place] [address] 10/16/2024 3:30 PM FUSELAGE FRAMER Office Visit [facility] [address] [place] [phone] Brit Gonzáles MD [address] [place] [address] documented as of this encounter Visit Diagnoses Not on filedocumented in this encounter Care Teams Duck Farmer Relationship Specialty Start Date End Date Megan Infante MD [address] [facility] [place] [address] PCP - General FAMILY PRACTICE 04/06/16 Piyush Pandey MD [place] Trailer Truck Driver CARDIOVASCULAR DISEASE 04/06/16 12/28/23 Sharmila Davis APRN, REMANUFACTURING TECHNICIAN-C [address] [facility] [address] [place] [address] NURSE PRACTITIONER 01/04/17 04/03/24 Linda Block MD 619 [facility] [address] [place] [address] [place] Trailer Truck Driver CLINICAL CARDIAC ELECTROPHYSIOLOGY 02/08/17 04/12/23 documented as of this encounter
--- OUTSIDE RECORDS SUMMARY | 2024-09-03 19:20 | XMS_ITS | Encounter Summary ---
Author Organization [facility] Address [address] [place] [address]. [place] [address] [place] [address] Care Team Providers Care Hogshead Mat Assembler Name Role Phone Piyush Pandey MD Unavailable UnavailMegan Rodriguez MD Primary Care Provider [phone] Sharmila Davis APRN, PCAS-C Unavailable Linda Block MD Unavailable [phone] Encounter Details Date Type Department Care Team (Late st Contact Info) Description 12/26/2003 Abstract [facility] CONVERSION [address] [place] [address] Matias Mac MD [address] [place] [address] Social History Tobacco Use Types Packs/Day Years [...] Contact Info) Description 09/25/2024 2:00 PM CERTIFIED HEARING INSTRUMENT DISPENSER Appointment [facility] [address] [place] [address] Zayra Powell, OXIDIZED FINISH PLATER [address] [place] [address] 10/16/2024 3:30 PM CERTIFIED HEARING INSTRUMENT DISPENSER Office Visit [facility] Gutierrez[address] [place] [address] Brit Gonzáles MD 619 [place] [address] documented as of this encounter Visit Diagnoses Not on filedocumented in this encounter Care Teams Hogshead Mat Assembler Relationship Specialty Start Date End Date Megan Infante MD [address] [place] [phone] PCP - General FAMILY PRACTICE 04/06/16 Piyush Pandey MD [place] Aircraft Cylinder Mechanic CARDIOVASCULAR DISEASE 04/06/16 12/28/23 Sharmila Davis, MANUFACTURED BUILDINGS SUPERVISOR, PCAS-C 619 [facility] 4P57 [place] [address] NURSE PRACTITIONER 01/04/17 04/03/24 Linda Block MD 619 [facility] [address] [place] [address] [place] Aircraft Cylinder Mechanic CLINICAL CARDIAC ELECTROPHYSIOLOGY 02/08/17 04/12/23 documented as of this encounter
--- OUTSIDE RECORDS SUMMARY | 2024-09-03 19:20 | XMS_ITS | Encounter Summary ---
Author Organization [facility] Address [address] [place] [address]. [place] [address] [place] [address] Care Team Providers Care Rat Farmer Name Role Phone Piyush Pandey MD Unavailable UnavailMegan Rodriguez MD Primary Care Provider [phone] Sharmila Davis APRN, GEOLOGIST PETROLEUM-C Unavailable [phone] Linda Block MD Unavailable [phone] Encounter Details Date Type Department Care Team (Late st Contact Info) Description 10/20/[address] [facility] [address] [place] [address] Matias Mac MD [address] [place] [address] Social History Tobacco Use Types Packs/Day Years [...] st Contact Info) Description 09/25/2024 2:00 PM PRESSURE WELDER Appointment [facility] [address] [place] [address] Zayra Powell FNP [address] [place] [address] 10/16/2024 3:30 PM PRESSURE WELDER Office Visit [facility] Gutierrez[address] [place] [address] Brit Gonzáles MD 619 [place] [address] documented as of this encounter Visit Diagnoses Not on filedocumented in this encounter Care Teams Rat Farmer Relationship Specialty Start Date End Date Megan Infante MD [address] [place] [address] PCP - General FAMILY PRACTICE 04/06/16 Piyush Pandey MD [place] Book Canvasser CARDIOVASCULAR DISEASE 04/06/16 12/28/23 Sharmila Davis, MANDATE RETAIL SERVICE MERCHANDISER, GEOLOGIST PETROLEUM-C 619 [facility] [address] [place] [address] NURSE PRACTITIONER 01/04/17 04/03/24 Linda Block MD 619 [facility] [address] [place] [address] [place] Book Canvasser CLINICAL CARDIAC ELECTROPHYSIOLOGY 02/08/17 04/12/23 documented as of this encounter
--- OUTSIDE RECORDS SUMMARY | 2024-09-03 19:20 | XMS_ITS | Encounter Summary ---
Author Organization [facility] Address [address] [place] [address]. [place] [address] [place] [address] Care Team Providers Care Human Services Manager Name Role Phone Piyush Pandey MD Unavailable Unavailabl Megan Leos MD Primary Care Provider [phone] Sharmila Davis APRN, ENERGY BROKER-C Unavailable Linda Block MD Unavailable [phone] Encounter Details Date Type Department Care Team (Late st Contact Info) Description 05/13/2000 Abstract [facility] CONVERSION [address] [place] [address] , Generic MD Nikhil Social [...] Contact Info) Description 09/25/2024 2:00 PM COMMERCIAL REAL ESTATE ASSOCIATE Appointment [facility] [address] [place] [address] Zayra Powell, FUEL OIL CLERK [address] [place] [address] 10/16/2024 3:30 PM COMMERCIAL REAL ESTATE ASSOCIATE Office Visit [facility] [address] [place] [address] Brit Gonzáles MD [address] [place] [address] documented as of this encounter Visit Diagnoses Not on filedocumented in this encounter Care Teams Human Services Manager Relationship Specialty Start Date End Date Megan Infante MD [address] [facility] [place] [address] PCP - General FAMILY PRACTICE 04/06/16 Piyush Pandey MD [place] Shirt Folder CARDIOVASCULAR DISEASE 04/06/16 12/28/23 Sharmila Davis APRN, ENERGY BROKER-C 619 [facility] [address]P57 [place] [address] NURSE PRACTITIONER 01/04/17 04/03/24 Linda Block MD [address] [facility] [address] [place] [address] [place] Shirt Folder CLINICAL CARDIAC ELECTROPHYSIOLOGY 02/08/17 04/12/23 documented as of this encounter
--- OUTSIDE RECORDS SUMMARY | 2024-09-03 19:20 | XMS_ITS | Encounter Summary ---
Author Organization [facility] Address [address] [place] [address]. [place] [address] [place] [address] Care Team Providers Care Subcontract Administrator Name Role Phone Piyush Pandey MD Unavailable Unavailabl Megan Leos MD Primary Care Provider [phone] Sharmila Davis APRN, DREDGE CAPTAIN-C Unavailable [phone] Linda Block MD Unavailable [phone] Encounter Details Date Type Department Care Team (Late st Contact Info) Description 04/13/2000 Abstract [facility] CONVERSION [address] [place] [address] , Generic MD Nikhil Social [...] st Contact Info) Description 09/25/2024 2:00 PM PRACTICE CLINICIAN Appointment [facility] [address] [place] [address] Zayra Powell, SEASONAL CUSTOMER SERVICE ASSOCIATE [address] [place] [address] 10/16/2024 3:30 PM PRACTICE CLINICIAN Office Visit [facility] [address] [place] [address] Brit Gonzáles MD [address] [place] [address] documented as of this encounter Visit Diagnoses Not on filedocumented in this encounter Care Teams Subcontract Administrator Relationship Specialty Start Date End Date Megan Infante MD [address] [facility] [place] [address] PCP - General FAMILY PRACTICE 04/06/16 Piyush Pandey MD [place] Job Captain CARDIOVASCULAR DISEASE 04/06/16 12/28/23 Sharmila Davis APRN, DREDGE CAPTAIN-C 619 [facility] [address] [place] [address] NURSE PRACTITIONER 01/04/17 04/03/24 Linda Block MD 619 [facility] [address] [place] [address] [place] Job Captain CLINICAL CARDIAC ELECTROPHYSIOLOGY 02/08/17 04/12/23 documented as of this encounter
--- OUTSIDE RECORDS SUMMARY | 2024-09-03 19:20 | XMS_ITS | Encounter Summary ---
Author Organization [facility] Address [address] [place] [address]. [place] [address] [place] [address] Care Team Providers Care Watch Repairer Name Role Phone Piyush Pandey MD Unavailable Unavailabl Megan Leos MD Primary Care Provider [phone] Sharmila Davis APRN, CYTOLOGIST-C Unavailable Linda Block MD Unavailable [phone] Encounter Details Date Type Department Care Team (Late st Contact Info) Description 09/15/2002 Abstract [facility] CONVERSION [address] [place] [address] , Generic MD Nikhil Social [...] st Contact Info) Description 09/25/2024 2:00 PM DISTILLERY MILLER Appointment [facility] [address] [place] [address] Zayra Powell, ELECTRONIC DRAFTER [address] [place] [address] 10/16/2024 3:30 PM DISTILLERY MILLER Office Visit [facility] [address] [place] [address] Brit Gonzáles MD [address] [place] [address] documented as of this encounter Visit Diagnoses Not on filedocumented in this encounter Care Teams Watch Repairer Relationship Specialty Start Date End Date Megan Infante MD [address] [facility] [place] [address] PCP - General FAMILY PRACTICE 04/06/16 Piyush Pandey MD [place] Live Source Operator CARDIOVASCULAR DISEASE 04/06/16 12/28/23 Sharmila Davis APRN, CYTOLOGIST-C 619 [facility] [address] [place] [address] NURSE PRACTITIONER 01/04/17 04/03/24 Linda Block MD 619 [facility] [address] [place] [address] [place] Live Source Operator CLINICAL CARDIAC ELECTROPHYSIOLOGY 02/08/17 04/12/23 documented as of this encounter
--- OUTSIDE RECORDS SUMMARY | 2024-09-03 19:20 | XMS_ITS | Encounter Summary ---
Author Organization [facility] Address [address] [place] [address]. [place] [address] [place] [address] Care Team Providers Care Paint Roller Covermaker Name Role Phone Piyush Pandey MD Unavailable Unavailabl Megan Leos MD Primary Care Provider [phone] Sharmila Davis APRN ASSISTANT GROCERY STORE MANAGER-C Unavailable Linda Block MD Unavailable [phone] Encounter Details Date Type Department Care Team (Late st Contact Info) Description 04/14/2001 Abstract [facility] CONVERSION [address] [place] [address] , Generic MD Nikhil Social [...] st Contact Info) Description 09/25/2024 2:00 PM TABLE TENDER SLUDGE Appointment [facility] [address] [place] [address] Zayra Powell, SANDING MACHINE OPERATOR [address] [place] [address] 10/16/2024 3:30 PM TABLE TENDER SLUDGE Office Visit [facility] [address] [place] [phone] Brit Gonzáles MD [address] [place] [address] documented as of this encounter Visit Diagnoses Not on filedocumented in this encounter Care Teams Paint Roller Covermaker Relationship Specialty Start Date End Date Megan Infante MD [address] [facility] [place] [address] PCP - General FAMILY PRACTICE 04/06/16 Piyush Pandey MD [place] Liquor Bridge Operator CARDIOVASCULAR DISEASE 04/06/16 12/28/23 Sharmila Davis APRN, ASSISTANT GROCERY STORE MANAGER-C 619 [facility] [address]P57 [place] [address] NURSE PRACTITIONER 01/04/17 04/03/24 Linda Block MD 619 [facility] [address] [place] [address] [place] Liquor Bridge Operator CLINICAL CARDIAC ELECTROPHYSIOLOGY 02/08/17 04/12/23 documented as of this encounter
--- OUTSIDE RECORDS SUMMARY | 2024-09-03 19:20 | XMS_ITS | Encounter Summary ---
Author Organization [facility] Address [address] [place] [address]. [place] [address] [place] [address] Care Team Providers Care Underground Drill Operator Name Role Phone Piyush Pandey MD Unavailable Unavailabl Megan Leos MD Primary Care Provider [phone] Sharmila Davis APRN, ELECTRONIC BENCH TECHNICIAN-C Unavailable [phone] Linda Block MD Unavailable [phone] Encounter Details Date Type Department Care Team (Late st Contact Info) Description 12/21/2003 Abstract [facility] CONVERSION [address] [place] [address] , Generic MD Nikhil Social [...] Contact Info) Description 09/25/2024 2:00 PM TRANSITION MGR RN Appointment [facility] [address] [place] [address] Zayra Powell, GAS PIPE LAYER [address] [place] [address] 10/16/2024 3:30 PM TRANSITION MGR RN Office Visit [facility] [address] [place] [address] Brit Gonzáles MD [address] [place] [address] documented as of this encounter Visit Diagnoses Not on filedocumented in this encounter Care Teams Underground Drill Operator Relationship Specialty Start Date End Date Megan Infante MD [address] [facility] [place] [address] PCP - General FAMILY PRACTICE 04/06/16 Piyush Pandey MD [place] Air Crew Supervisor CARDIOVASCULAR DISEASE 04/06/16 12/28/23 Sharmila Davis APRN, ELECTRONIC BENCH TECHNICIAN-C 619 [facility] [address] [place] [address] NURSE PRACTITIONER 01/04/17 04/03/24 Linda Block MD 619 [facility] [address] [place] [address] [place] Air Crew Supervisor CLINICAL CARDIAC ELECTROPHYSIOLOGY 02/08/17 04/12/23 documented as of this encounter
--- OUTSIDE RECORDS SUMMARY | 2024-09-03 19:21 | XMS_ITS | Encounter Summary ---
Author Organization [facility] Address [address] [place] [address]. [place] [address] [place] [address] Care Team Providers Care Media Planner Name Role Phone Piyush Pandey MD Unavailable Unavailabl Megan Leos MD Primary Care Provider [phone] Sharmila Davis APRN, RESPIRATORY THERAPY INSTRUCTOR-C Unavailable Linda Block MD Unavailable [phone] Encounter Details Date Type Department Care Team (Late st Contact Info) Description 01/30/2000 Abstract [facility] CONVERSION [address] [place] [address] , Generic MD Nikhil Social [...] Contact Info) Description 09/25/2024 2:00 PM PRACTICE ADMINISTRATOR Appointment [facility] [address] [place] [address] Zayra Powell, HEAVY EQUIPMENT SERVICE TECHNICIAN [address] [place] [address] 10/16/2024 3:30 PM PRACTICE ADMINISTRATOR Office Visit [facility] [address] [place] [address] Brit Gonzáles MD [address] [place] [address] documented as of this encounter Visit Diagnoses Not on filedocumented in this encounter Care Teams Media Planner Relationship Specialty Start Date End Date Megan Infante MD [address] [facility] [place] [address] PCP - General FAMILY PRACTICE 04/06/16 Piyush Pandey MD [place] Actuarial Mathematician CARDIOVASCULAR DISEASE 04/06/16 12/28/23 Sharmila Davis APRN, RESPIRATORY THERAPY INSTRUCTOR-C 619 [facility] [address] [place] [address] NURSE PRACTITIONER 01/04/17 04/03/24 Linda Block MD 619 [facility] [address] [place] [address] [place] Actuarial Mathematician CLINICAL CARDIAC ELECTROPHYSIOLOGY 02/08/17 04/12/23 documented as of this encounter
--- OUTSIDE RECORDS SUMMARY | 2024-09-03 19:21 | XMS_ITS | Encounter Summary ---
Author Organization [facility] Address [address] [place] [address]. [place] [address] [place] [address] Care Team Providers Care Collector Of Aquarium Specimens Name Role Phone Piyush Pandey MD Unavailable Unavailabl Megan Leos MD Primary Care Provider [phone] Sharmila Davis APRN, GOLD PROSPECTOR-C Unavailable Linda Block MD Unavailable [phone] Encounter Details Date Type Department Care Team (Late st Contact Info) Description 11/10/1999 Abstract [facility] CONVERSION [address] [place] [address] , Generic MD Nikhil Social [...] st Contact Info) Description 09/25/2024 2:00 PM NEEDLE SETTER Appointment [facility] [address] [place] [address] Zayra Powell, CIGARETTE MAKING MACHINE HOPPER FEEDER [address] [place] [address] 10/16/2024 3:30 PM NEEDLE SETTER Office Visit [facility] [address] [place] [address] Brit Gonzáles MD [address] [place] [address] documented as of this encounter Visit Diagnoses Not on filedocumented in this encounter Care Teams Collector Of Aquarium Specimens Relationship Specialty Start Date End Date Megan Infante MD [address] [facility] [place] [address] PCP - General FAMILY PRACTICE 04/06/16 Piyush Pandey MD [place] Retail Associate CARDIOVASCULAR DISEASE 04/06/16 12/28/23 Sharmila Davis APRN, GOLD PROSPECTOR-C [address] [facility] [address] [place] [address] NURSE PRACTITIONER 01/04/17 04/03/24 Linda Block MD 619 [facility] [address] [place] [address] [place] Retail Associate CLINICAL CARDIAC ELECTROPHYSIOLOGY 02/08/17 04/12/23 documented as of this encounter
--- OUTSIDE RECORDS SUMMARY | 2024-09-03 19:21 | XMS_ITS | Encounter Summary ---
Author Organization [facility] Address [address] [place] [address]. [place] [address] [place] [address] Care Team Providers Care Server Administrator Name Role Phone Piyush Pandey MD Unavailable Unavailabl Megan Leos MD Primary Care Provider [phone] Sharmila Davis APRN COOK DESSERT-C Unavailable Linda Block MD Unavailable [phone] Encounter Details Date Type Department Care Team (Late st Contact Info) Description 10/08/1998 Abstract [facility] CONVERSION [address] [place] [address] , Generic MD Nikhil Social [...] Contact Info) Description 09/25/2024 2:00 PM FIELD SUPERINTENDENT Appointment [facility] [address] [place] [address] Zayra Powell, IT HELP DESK MANAGER [address] [place] [address] 10/16/2024 3:30 PM FIELD SUPERINTENDENT Office Visit [facility] [address] [place] [address] Brit Gonzáles MD [address] [place] [address] documented as of this encounter Visit Diagnoses Not on filedocumented in this encounter Care Teams Server Administrator Relationship Specialty Start Date End Date Megan Infante MD [address] [facility] [place] [address] PCP - General FAMILY PRACTICE 04/06/16 Piyush Pandey MD [place] Plumber Assistant CARDIOVASCULAR DISEASE 04/06/16 12/28/23 Sharmila Davis APRN, COOK DESSERT-C [address] [facility] [address] [place] [address] NURSE PRACTITIONER 01/04/17 04/03/24 Linda Block MD 619 [facility] [address] [place] [address] [place] Plumber Assistant CLINICAL CARDIAC ELECTROPHYSIOLOGY 02/08/17 04/12/23 documented as of this encounter
--- OUTSIDE RECORDS SUMMARY | 2024-09-03 19:21 | XMS_ITS | Encounter Summary ---
Author Organization [facility] Address [address] [place] [address]. [place] [address] [place] [address] Care Team Providers Care Composition Mixer Name Role Phone Piyush Pandey MD Unavailable Unavailabl Megan Leos MD Primary Care Provider [phone] Sharmila Davis APRN, ACCOUNT EXECUTIVE KEY ACCOUNTS-C Unavailable Linda Block MD Unavailable [phone] Encounter Details Date Type Department Care Team (Late st Contact Info) Description 10/12/1999 Abstract [facility] CONVERSION [address] [place] [address] , Generic MD Nikhil Social [...] st Contact Info) Description 09/25/2024 2:00 PM FORENSIC PHOTOGRAPHER Appointment [facility] [address] [place] [address] Zayra Powell, HEAT TREAT INSPECTOR [address] [place] [address] 10/16/2024 3:30 PM FORENSIC PHOTOGRAPHER Office Visit [facility] [address] [place] [address] Brit Gonzáles MD [address] [place] [address] documented as of this encounter Visit Diagnoses Not on filedocumented in this encounter Care Teams Composition Mixer Relationship Specialty Start Date End Date Megan Infante MD [address] [facility] [place] [address] PCP - General FAMILY PRACTICE 04/06/16 Piyush Pandey MD [place] Ice Cream Shop Associate CARDIOVASCULAR DISEASE 04/06/16 12/28/23 Sharmila Davis APRN, ACCOUNT EXECUTIVE KEY ACCOUNTS-C 619 [facility] [address] [place] [address] NURSE PRACTITIONER 01/04/17 04/03/24 Linda Block MD 619 [facility] [address] [place] [address] [place] [employer] Associate CLINICAL CARDIAC ELECTROPHYSIOLOGY 02/08/17 04/12/23 documented as of this encounter
--- OUTSIDE RECORDS SUMMARY | 2024-09-03 19:21 | XMS_ITS | Encounter Summary ---
Author Organization [facility] Address [facility] [place] [address] [place] [address] Care Team Providers Care Senior Grants Officer Name Role Phone Piyush Pandey MD Unavailable Unavailabl e Megan Infante MD Primary Care Provider [phone] Sharmila Davis APRN BATCH MAKER-C Unavailable [phone] Linda Block MD Unavailable [phone] Encounter Details Date Type Department Care Team (Late st Contact Info) Description 02/05/2000 Abstract [facility] [address] [address] Social History Tobacco Use Types Packs/Day Years [...] Contact Info) Description 09/25/2024 2:00 PM LEAD RADIOLOGIC TECHNOLOGIST Appointment [facility] [address] [place] [address] Zayra Powell, ASSEMBLY LINE MACHINE OPERATOR [address] [place] [address] 10/16/2024 3:30 PM LEAD RADIOLOGIC TECHNOLOGIST Office Visit [facility] [address] [place] [phone] Brit Gonzáles MD 619 [place] [address] documented as of this encounter Visit Diagnoses Not on filedocumented in this encounter Care Teams Senior Grants Officer Relationship Specialty Start Date End Date Megan Infante MD [address] [facility] [place] [address] PCP - General FAMILY PRACTICE 04/06/16 Piyush Pandey MD [place] Hand Shoes Sewer CARDIOVASCULAR DISEASE 04/06/16 12/28/23 Sharmila Davis APRN, BATCH MAKER-C 619 [facility] [address] [place] [address] NURSE PRACTITIONER 01/04/17 04/03/24 Linda Block MD 619 [facility] [address] [address] [place] Hand Shoes Sewer CLINICAL CARDIAC ELECTROPHYSIOLOGY 02/08/17 04/12/23 documented as of this encounter
--- OUTSIDE RECORDS SUMMARY | 2024-09-03 19:21 | XMS_ITS | Encounter Summary ---
Author Organization [facility] Address [address] [place] [address]. [place] [address] [place] [address] Care Team Providers Care Applied Research Director Name Role Phone Piyush Pandey MD Unavailable Unavailabl Megan Leos MD Primary Care Provider [phone] Sharmila Davis APRN, TANKER DRIVER-C Unavailable Linda Block MD Unavailable [phone] Encounter Details Date Type Department Care Team (Late st Contact Info) Description 08/29/1999 Abstract [facility] CONVERSION [address] [place] [address] , Generic MD Nikhil Social [...] st Contact Info) Description 09/25/2024 2:00 PM RESTAURANT FLOOR MANAGER Appointment [facility] [address] [place] [address] Zayra Powell, POWER PLANT OPERATIONS MANAGER [address] [place] [address] 10/16/2024 3:30 PM RESTAURANT FLOOR MANAGER Office Visit [facility] [address] [place] [address] Brit Gonzáles MD [address] [place] [address] documented as of this encounter Visit Diagnoses Not on filedocumented in this encounter Care Teams Applied Research Director Relationship Specialty Start Date End Date Megan Infante MD [address] [facility] [place] [address] PCP - General FAMILY PRACTICE 04/06/16 Piyush Pandey MD [place] Director Fixed Income CARDIOVASCULAR DISEASE 04/06/16 12/28/23 Sharmila Davis APRN, TANKER DRIVER-C 619 [facility] [address] [place] [address] NURSE PRACTITIONER 01/04/17 04/03/24 Linda Block MD 619 [facility] [address] [place] [address] [place] Director Fixed Income CLINICAL CARDIAC ELECTROPHYSIOLOGY 02/08/17 04/12/23 documented as of this encounter
--- OUTSIDE RECORDS SUMMARY | 2024-09-03 19:21 | XMS_ITS | Encounter Summary ---
Author Organization [facility] Address [address] [place] [address]. [place] [address] [place] [address] Care Team Providers Care Over Hauler Helper Name Role Phone Piyush Pandey MD Unavailable Unavailabl Megan Leos MD Primary Care Provider [phone] Sharmila Davis APRN, OCEAN IMPORT REPRESENTATIVE-C Unavailable Linda Block MD Unavailable [phone] Encounter Details Date Type Department Care Team (Late st Contact Info) Description 12/29/1999 Abstract SFL CONVERSION [address] [place] [address] , Generic MD Nikhil Social [...] st Contact Info) Description 09/25/2024 2:00 PM HOD CARRIER Appointment [facility] [address] [place] [address] Zayra Powell, AUDIOLOGIST [address] [place] [address] 10/16/2024 3:30 PM HOD CARRIER Office Visit [facility] [address] [place] [address] Brit Gonzáles MD [address] [place] [address] documented as of this encounter Visit Diagnoses Not on filedocumented in this encounter Care Teams Over Hauler Helper Relationship Specialty Start Date End Date Megan Infante MD [address] [facility] [place] [address] PCP - General FAMILY PRACTICE 04/06/16 Piyush Pandey MD [place] Tractor Operator Laser Leveling CARDIOVASCULAR DISEASE 04/06/16 12/28/23 Sharmila Davis APRN, OCEAN IMPORT REPRESENTATIVE-C [address] [facility] [address]57 [place] [address] NURSE PRACTITIONER 01/04/17 04/03/24 Linda Block MD 619 [facility] [address] [place] [address] [place] Tractor Operator Laser Leveling CLINICAL CARDIAC ELECTROPHYSIOLOGY 02/08/17 04/12/23 documented as of this encounter
--- OUTSIDE RECORDS SUMMARY | 2024-09-03 19:21 | XMS_ITS | Encounter Summary ---
Author Organization [facility] Address [address] [place] [address]. [place] [address] [place] [address] Care Team Providers Care Patent Counsel Name Role Phone Piyush Pandey MD Unavailable Unavailabl Megan Leos MD Primary Care Provider [phone] Sharmila Davis APRN, PROCESS CHEESE COOKER-C Unavailable Linda Block MD Unavailable [phone] Encounter Details Date Type Department Care Team (Late st Contact Info) Description 07/10/1999 Abstract SFL CONVERSION [address] [place] [address] , Generic MD Nikhil Social [...] st Contact Info) Description 09/25/2024 2:00 PM DIE FINISHER FORGING Appointment [facility] [address] [place] [address] Zayra Powell, LOSS PREVENTION ASSOCIATE [address] [place] [address] 10/16/2024 3:30 PM DIE FINISHER FORGING Office Visit [facility] [address] [place] [phone] Brit Gonzáles MD [address] [place] [address] documented as of this encounter Visit Diagnoses Not on filedocumented in this encounter Care Teams Patent Counsel Relationship Specialty Start Date End Date Megan Infante MD [address] [facility] [place] [address] PCP - General FAMILY PRACTICE 04/06/16 Piyush Pandey MD [place] Bulk Fluids Handler CARDIOVASCULAR DISEASE 04/06/16 12/28/23 Sharmila Davis APRN, PROCESS CHEESE COOKER-C [address] [facility] [address] [place] [address] NURSE PRACTITIONER 01/04/17 04/03/24 Linda Block MD 619 [facility] [address] [place] [address] [place] Bulk Fluids Handler CLINICAL CARDIAC ELECTROPHYSIOLOGY 02/08/17 04/12/23 documented as of this encounter
--- OUTSIDE RECORDS SUMMARY | 2024-09-03 19:21 | XMS_ITS | Encounter Summary ---
Author Organization [facility] Address [address] [place] [address]. [place] [address] [place] [address] Care Team Providers Care Order Entry Technician Name Role Phone Piyush Pandey MD Unavailable Unavailabl Megan Leos MD Primary Care Provider [phone] Sharmila Davis APRN, RIB BENDER-C Unavailable Linda Block MD Unavailable [phone] Encounter Details Date Type Department Care Team (Late st Contact Info) Description 12/03/1998 Abstract SFL CONVERSION [address] [place] [address] , Generic MD Nikhil Social [...] st Contact Info) Description 09/25/2024 2:00 PM IMPRESS ASSOCIATE Appointment [facility] [address] [place] [address] Zayra Powell, NURSE ESTHETICIAN [address] [place] [address] 10/16/2024 3:30 PM IMPRESS ASSOCIATE Office Visit [facility] [address] [place] [phone] Brit Gonzáles MD [address] [place] [address] documented as of this encounter Visit Diagnoses Not on filedocumented in this encounter Care Teams Order Entry Technician Relationship Specialty Start Date End Date Megan Infante MD [address] [facility] [place] [address] PCP - General FAMILY PRACTICE 04/06/16 Piyush Pandey MD [place] Audit Consultant CARDIOVASCULAR DISEASE 04/06/16 12/28/23 Sharmila Davis APRN, RIB BENDER-C 619 [facility] [address] [place] [address] NURSE PRACTITIONER 01/04/17 04/03/24 Linda Block MD 6[address] [facility] [address] [place] [address] [place] Audit Consultant CLINICAL CARDIAC ELECTROPHYSIOLOGY 02/08/17 04/12/23 documented as of this encounter
--- OUTSIDE RECORDS SUMMARY | 2024-09-03 19:21 | XMS_ITS | Encounter Summary ---
Author Organization [facility] Address [address] [place] [address]. [place] [address] [place] [address] Care Team Providers Care Senior Tax Specialist Name Role Phone Piyush Pandey MD Unavailable Unavailabl Megan Leos MD Primary Care Provider [phone] Sharmila Davis APRN, OCCUPATIONAL HEALTH NURSE-C Unavailable Linda Block MD Unavailable [phone] Encounter Details Date Type Department Care Team (Late st Contact Info) Description 07/02/1998 Abstract SFL CONVERSION [address] [place] [address] , Generic MD Nikhil Social [...] st Contact Info) Description 09/25/2024 2:00 PM NUMERICAL CONTROL PROGRAMMER Appointment [facility] [address] [place] [address] Zayra Powell, FLIGHT ENGINEER INSPECTOR [address] [place] [address] 10/16/2024 3:30 PM NUMERICAL CONTROL PROGRAMMER Office Visit [facility] [address] [place] [phone] Brit Gonzáles MD [address] [place] [address] documented as of this encounter Visit Diagnoses Not on filedocumented in this encounter Care Teams Senior Tax Specialist Relationship Specialty Start Date End Date Megan Infante MD [address] [facility] [place] [address] PCP - General FAMILY PRACTICE 04/06/16 Piyush Pandey MD [place] Calender Machine Operator CARDIOVASCULAR DISEASE 04/06/16 12/28/23 Sharmila Davis APRN, OCCUPATIONAL HEALTH NURSE-C [address] [facility] [address] [place] [address] NURSE PRACTITIONER 01/04/17 04/03/24 Linda Block MD 619 [facility] [address] [place] [address] [place] Calender Machine Operator CLINICAL CARDIAC ELECTROPHYSIOLOGY 02/08/17 04/12/23 documented as of this encounter
--- OUTSIDE RECORDS SUMMARY | 2024-09-03 19:21 | XMS_ITS | Encounter Summary ---
Author Organization [facility] Address [address] [place] [address]. [place] [address] [place] [address] Care Team Providers Care Mountain Bike Guide Name Role Phone Piyush Pandey MD Unavailable Unavailabl Megan Leos MD Primary Care Provider [phone] Sharmila Davis APRN, LEAD SHAREPOINT DEVELOPER-C Unavailable [phone] Linda Block MD Unavailable [phone] Encounter Details Date Type Department Care Team (Late st Contact Info) Description 02/06/2000 Abstract SFL CONVERSION [address] [place] [address] , Generic MD Nikhil Social [...] st Contact Info) Description 09/25/2024 2:00 PM CELLULAR PHONE REPAIRER Appointment [facility] [address] [place] [address] Zayra Powell, EXCEL SPECIALIST [address] [place] [address] 10/16/2024 3:30 PM CELLULAR PHONE REPAIRER Office Visit [facility] [address] [place] [phone] Brit Gonzáles MD [address] [place] [address] documented as of this encounter Visit Diagnoses Not on filedocumented in this encounter Care Teams Mountain Bike Guide Relationship Specialty Start Date End Date Megan Infante MD [address] [facility] [place] [address] PCP - General FAMILY PRACTICE 04/06/16 iPyush Pandey MD [place] [employer] Process Equipment Operator CARDIOVASCULAR DISEASE 04/06/16 12/28/23 Sharmila Davis APRN, LEAD SHAREPOINT DEVELOPER-C 619 [facility] [address] [place] [address] NURSE PRACTITIONER 01/04/17 04/03/24 Linda Block MD 619 [facility] [address] [place] [address] [place] [employer] Process Equipment Operator CLINICAL CARDIAC ELECTROPHYSIOLOGY 02/08/17 04/12/23 documented as of this encounter
--- OUTSIDE RECORDS SUMMARY | 2024-09-03 19:21 | XMS_ITS | Encounter Summary ---
Author Organization [facility] Address [address] [place] [address]. [place] [address] [place] [address] Care Team Providers Care Gardening Instructor Name Role Phone Piyush Pandey MD Unavailable Unavailabl Megan Leos MD Primary Care Provider [phone] Sharmila Davis APRN, PRISON CLASSIFICATION COUNSELOR-C Unavailable [phone] Linda Block MD Unavailable [phone] Encounter Details Date Type Department Care Team (Late st Contact Info) Description 01/17/1999 Abstract SFL CONVERSION [address] [place] [address] , Generic MD Nikhil Social [...] Contact Info) Description 09/25/2024 2:00 PM SOFTWARE TEST ENGINEER Appointment [facility] [address] [place] [address] Zayra Powell, WORKING SECOND HAND [address] [place] [address] 10/16/2024 3:30 PM SOFTWARE TEST ENGINEER Office Visit [facility] [address] [place] [address] Brit Gonzáles MD [address] [place] [address] documented as of this encounter Visit Diagnoses Not on filedocumented in this encounter Care Teams Gardening Instructor Relationship Specialty Start Date End Date Megan Infante MD [address] [facility] [place] [address] PCP - General FAMILY PRACTICE 04/06/16 Piyush Pandey MD [place] Museum Archivist CARDIOVASCULAR DISEASE 04/06/16 12/28/23 Sharmila Davis APRN, PRISON CLASSIFICATION COUNSELOR-C 6[address] [facility] [address] [place] [address] NURSE PRACTITIONER 01/04/17 04/03/24 Linda Block MD 619 [facility] [address] [place] [address] [place] Museum Archivist CLINICAL CARDIAC ELECTROPHYSIOLOGY 02/08/17 04/12/23 documented as of this encounter
--- OUTSIDE RECORDS SUMMARY | 2024-09-03 19:21 | XMS_ITS | Encounter Summary ---
Author Organization [facility] Address [address] [place] [address]. [place] [address] [place] [address] Care Team Providers Care Humanities Division Chair Name Role Phone Piyush Pandey MD Unavailable Unavailabl Megan Leos MD Primary Care Provider [phone] Sharmila Davis APRN MANAGER ENVIRONMENTAL-C Unavailable [phone] Linda Block MD Unavailable [phone] Encounter Details Date Type Department Care Team (Late st Contact Info) Description 12/07/1997 Abstract SFL CONVERSION [address] [place] [address] , Generic MD Nikhil Social [...] st Contact Info) Description 09/25/2024 2:00 PM PROCESSING INSPECTOR Appointment [facility] [address] [place] [address] Zayra Powell, GREEN PLUMBER [address] [place] [address] 10/16/2024 3:30 PM PROCESSING INSPECTOR Office Visit [facility] [address] [place] [phone] Brit Gonzáles MD [address] [place] [address] documented as of this encounter Visit Diagnoses Not on filedocumented in this encounter Care Teams Humanities Division Chair Relationship Specialty Start Date End Date Megan Infante MD [address] [facility] [place] [address] PCP - General FAMILY PRACTICE 04/06/16 Piyush Pandey MD [place] Equal Opportunity Officer CARDIOVASCULAR DISEASE 04/06/16 12/28/23 Sharmila Davis APRN, MANAGER ENVIRONMENTAL-C [address] [facility] [address] [place] [address] NURSE PRACTITIONER 01/04/17 04/03/24 Linda Block MD 619 [facility] [address] [place] [address] [place] Equal Opportunity Officer CLINICAL CARDIAC ELECTROPHYSIOLOGY 02/08/17 04/12/23 documented as of this encounter
--- OUTSIDE RECORDS SUMMARY | 2024-09-03 19:21 | XMS_ITS | Encounter Summary ---
Author Organization [facility] Address [address] [place] [address]. [place] [address] [place] [address] Care Team Providers Care Crop Research Scientist Name Role Phone Piyush Pandey MD Unavailable Unavailabl Megan Leos MD Primary Care Provider [phone] Sharmila Davis APRN, CT SCAN TECHNICIAN-C Unavailable Linda Block MD Unavailable [phone] Encounter Details Date Type Department Care Team (Late st Contact Info) Description 05/27/1999 Abstract SFL CONVERSION [address] [place] [address] , Generic MD Nikhil Social [...] st Contact Info) Description 09/25/2024 2:00 PM LAB REP Appointment [facility] [address] [place] [address] Zayra Powell, JANITORIAL SUPERVISOR [address] [place] [address] 10/16/2024 3:30 PM LAB REP Office Visit [facility] [address] [place] [address] Brit Gonzáles MD [address] [place] [address] documented as of this encounter Visit Diagnoses Not on filedocumented in this encounter Care Teams Crop Research Scientist Relationship Specialty Start Date End Date Megan Infante MD [address] [facility] [place] [address] PCP - General FAMILY PRACTICE 04/06/16 Piyush Pandey MD [place] Broke Beater Machine Operator CARDIOVASCULAR DISEASE 04/06/16 12/28/23 Sharmila Davis APRN, CT SCAN TECHNICIAN-C 619 [facility] [address] [place] [address] NURSE PRACTITIONER 01/04/17 04/03/24 Linda Block MD 619 [facility] [address] [place] [address] [place] Broke Beater Machine Operator CLINICAL CARDIAC ELECTROPHYSIOLOGY 02/08/17 04/12/23 documented as of this encounter
--- OUTSIDE RECORDS SUMMARY | 2024-09-03 19:21 | XMS_ITS | Encounter Summary ---
Author Organization [facility] Address [address] [place] [address]. [place] [address] [place] [address] Care Team Providers Care Canvas Products Sales Representative Name Role Phone Piyush Pandey MD Unavailable Unavailabl Megan Leos MD Primary Care Provider [phone] Sharmila Davis APRN, POLICY MANAGER-C Unavailable Linda Block MD Unavailable [phone] Encounter Details Date Type Department Care Team (Late st Contact Info) Description 01/05/2000 Abstract SFL CONVERSION [address] [place] [address] , Generic MD Nikhil Social [...] st Contact Info) Description 09/25/2024 2:00 PM TRAFFIC AGENT Appointment [facility] [address] [place] [address] Zayra Powell, FIRE CREW WORKER [address] [place] [address] 10/16/2024 3:30 PM TRAFFIC AGENT Office Visit [facility] [address] [place] [phone] Brit Gonzáles MD [address] [place] [address] documented as of this encounter Visit Diagnoses Not on filedocumented in this encounter Care Teams Canvas Products Sales Representative Relationship Specialty Start Date End Date Megan Infante MD [address] [facility] [place] [address] PCP - General FAMILY PRACTICE 04/06/16 Piyush Pandey MD [place] Oil Burner Repairer CARDIOVASCULAR DISEASE 04/06/16 12/28/23 Sharmila Davis APRN, POLICY MANAGER-C 619 [facility] [address] [place] [address] NURSE PRACTITIONER 01/04/17 04/03/24 Linda Block MD 619 [facility] [address] [place] [address] [place] Oil Burner Repairer CLINICAL CARDIAC ELECTROPHYSIOLOGY 02/08/17 04/12/23 documented as of this encounter
--- OUTSIDE RECORDS SUMMARY | 2024-09-03 19:21 | XMS_ITS | Encounter Summary ---
Author Organization [facility] Address [address] [place] [address]. [place] [address] [place] [address] Care Team Providers Care Housing Assistant Property Manager Name Role Phone Piyush Pandey MD Unavailable Unavailabl Megan Leos MD Primary Care Provider [phone] Sharmila Davis APRN, DATA ENTRY MACHINE OPERATOR-C Unavailable Linda Block MD Unavailable [phone] Encounter Details Date Type Department Care Team (Late st Contact Info) Description 01/16/2000 Abstract SFL CONVERSION [address] [place] [address] , Generic MD Nikhil Social [...] Info) Description 09/25/2024 2:00 PM SALES AND MARKETING EXECUTIVE Appointment [facility] [address] [place] [address] Zayra Powell, RESIDENTIAL THERAPIST [address] [place] [address] 10/16/2024 3:30 PM SALES AND MARKETING EXECUTIVE Office Visit [facility] [address] [place] [address] Brit Gonzáles MD [address] [place] [address] documented as of this encounter Visit Diagnoses Not on filedocumented in this encounter Care Teams Housing Assistant Property Manager Relationship Specialty Start Date End Date Megan Infante MD [address] [facility] [place] [address] PCP - General FAMILY PRACTICE 04/06/16 Piyush Pandey MD [place] Real Estate Professional CARDIOVASCULAR DISEASE 04/06/16 12/28/23 Sharmila Davis APRN, DATA ENTRY MACHINE OPERATOR-C 619 [facility] [address] [place] [address] NURSE PRACTITIONER 01/04/17 04/03/24 Linda Block MD 619 [facility] [address] [place] [address] [place] Real Estate Professional CLINICAL CARDIAC ELECTROPHYSIOLOGY 02/08/17 04/12/23 documented as of this encounter
--- OUTSIDE RECORDS SUMMARY | 2024-09-03 19:21 | XMS_ITS | Encounter Summary ---
Author Organization [facility] Address [address] [place] [address]. [place] [address] [place] [address] Care Team Providers Care Manufacturing Baker Name Role Phone Piyush Pandey MD Unavailable Unavailabl e Megan Infante MD Primary Care Provider [phone] Sharmila Davis APRN, FLEET SERVICE CLERK-C Unavailable Linda Block MD Unavailable [phone] Encounter Details Date Type Department Care Team (Late st Contact Info) Description 07/24/1998 Abstract SJS CONVERSION [address] [place], [place] [id number] , Generic ConversionMD Social History Tobacco Use Types Packs/Day Years [...] st Contact Info) Description 09/25/2024 2:00 PM TAB CARD PRESS OPERATOR Appointment [facility] [address] [place] [address] Zayra Powell, AUTO SERVICE INSTRUCTOR [address] [place] [address] 10/16/2024 3:30 PM TAB CARD PRESS OPERATOR Office Visit [facility] [address] [place] [phone] Brit Gonzáles MD [address] [place] [address] documented as of this encounter Visit Diagnoses Not on filedocumented in this encounter Care Teams Manufacturing Baker Relationship Specialty Start Date End Date Megan Infante MD [address] [facility] [place] [address] PCP - General FAMILY PRACTICE 04/06/16 Piyush Pandey MD [place] Front Desk Assistant CARDIOVASCULAR DISEASE 04/06/16 12/28/23 Sharmila Davis APRN, FLEET SERVICE CLERK-C [address] [facility] [address] [place] [address] NURSE PRACTITIONER 01/04/17 04/03/24 Linda Block MD 619 [facility] [address] [place] [address] [place] Front Desk Assistant CLINICAL CARDIAC ELECTROPHYSIOLOGY 02/08/17 04/12/23 documented as of this encounter
--- OUTSIDE RECORDS SUMMARY | 2024-09-03 19:21 | XMS_ITS | Encounter Summary ---
Author Organization [facility] Address [address] [place] [address]. [place] [address] [place] [address] Care Team Providers Care Sharepoint Manager Name Role Phone Piyush Pandey MD Unavailable Unavailabl Megan Leos MD Primary Care Provider [phone] Sharmila Davis APRN, TOURING PRODUCTION MANAGER-C Unavailable Linda Block MD Unavailable [phone] Encounter Details Date Type Department Care Team (Late st Contact Info) Description 01/12/2000 Abstract SFL CONVERSION [address] [place] [address] , Generic MD Nikhil Social [...] st Contact Info) Description 09/25/2024 2:00 PM POLE PEELING MACHINE OPERATOR Appointment [facility] [address] [place] [address] Zayra Powell, PRODUCT ANALYST [address] [place] [address] 10/16/2024 3:30 PM POLE PEELING MACHINE OPERATOR Office Visit [facility] [address] [place] [phone] Brit Gonzáles MD [address] [place] [address] documented as of this encounter Visit Diagnoses Not on filedocumented in this encounter Care Teams Sharepoint Manager Relationship Specialty Start Date End Date Megan Infante MD [address] [facility] [place] [address] PCP - General FAMILY PRACTICE 04/06/16 Piyush Pandey MD [place] Overhead Cleaner CARDIOVASCULAR DISEASE 04/06/16 12/28/23 Sharmila Davis APRN, TOURING PRODUCTION MANAGER-C 619 [facility] [address] [place] [address] NURSE PRACTITIONER 01/04/17 04/03/24 Linda Block MD 619 [facility] [address] [place] [address] [place] Overhead Cleaner CLINICAL CARDIAC ELECTROPHYSIOLOGY 02/08/17 04/12/23 documented as of this encounter
--- OUTSIDE RECORDS SUMMARY | 2024-09-03 19:21 | XMS_ITS | Encounter Summary ---
Author Organization [facility] Address [address] [place] [address]. [place] [address] [place] [address] Care Team Providers Care Clerk Of Scales Name Role Phone Piyush Pandey MD Unavailable Unavailabl Megan Leos MD Primary Care Provider [phone] Sharmila Davis APRN PEARL HAND-C Unavailable Linda Block MD Unavailable [phone] Encounter Details Date Type Department Care Team (Late st Contact Info) Description 10/09/1998 Abstract SFL CONVERSION [address] [place] [address] , Generic MD Nikhil Social [...] st Contact Info) Description 09/25/2024 2:00 PM SHIRT TRIMMER Appointment [facility] [address] [place] [address] Zayra Powell, CABINETMAKER APPRENTICE [address] [place] [address] 10/16/2024 3:30 PM SHIRT TRIMMER Office Visit [facility] [address] [place] [phone] rBit Gonzáles MD [address] [place] [address] documented as of this encounter Visit Diagnoses Not on filedocumented in this encounter Care Teams Clerk Of Scales Relationship Specialty Start Date End Date Megan Infante MD [address] [facility] [place] [address] PCP - General FAMILY PRACTICE 04/06/16 Piyush Pandey MD [place] Roll Forming Machine Set Up Mechanic CARDIOVASCULAR DISEASE 04/06/16 12/28/23 Sharmila Davis APRN, PEARL HAND-C 619 [facility] [address] [place] [address] NURSE PRACTITIONER 01/04/17 04/03/24 Linda Block MD 619 [facility] [address] [place] [address] [place] Roll Forming Machine Set Up Mechanic CLINICAL CARDIAC ELECTROPHYSIOLOGY 02/08/17 04/12/23 documented as of this encounter
--- OUTSIDE RECORDS SUMMARY | 2024-09-03 19:21 | XMS_ITS | Encounter Summary ---
Author Organization [facility] Address [address] [place] [address]. [place] [address] [place] [address] Care Team Providers Care Fireworks Inspector Name Role Phone Piyush Pandey MD Unavailable Unavailabl Megan Leos MD Primary Care Provider [phone] Sharmila Davis APRN, CUSTOMS COMPLIANCE SPECIALIST-C Unavailable [phone] Linda Block MD Unavailable [phone] Encounter Details Date Type Department Care Team (Late st Contact Info) Description 12/15/1999 Abstract SFL CONVERSION [address] [place] [address] , Generic MD Nikhil Social [...] st Contact Info) Description 09/25/2024 2:00 PM WEAPONS DESIGNER Appointment [facility] [address] [place] [address] Zayra Powell, SEASONAL CLERK [address] [place] [address] 10/16/2024 3:30 PM WEAPONS DESIGNER Office Visit [facility] [address] [place] [phone] Brit Gonzáles MD [address] [place] [address] documented as of this encounter Visit Diagnoses Not on filedocumented in this encounter Care Teams Fireworks Inspector Relationship Specialty Start Date End Date Megan Infante MD [address] [place] [address] PCP - General FAMILY PRACTICE 04/06/16 Piyush Pandey MD [place] Radiologic Therapist CARDIOVASCULAR DISEASE 04/06/16 12/28/23 Sharmila Davis APRN, CUSTOMS COMPLIANCE SPECIALIST-C [address] [facility] [address] [place] [address] NURSE PRACTITIONER 01/04/17 04/03/24 Linda Block MD [address] [facility] [address] [place] [address] [place] Radiologic Therapist CLINICAL CARDIAC ELECTROPHYSIOLOGY 02/08/17 04/12/23 documented as of this encounter
--- OUTSIDE RECORDS SUMMARY | 2024-09-03 19:21 | XMS_ITS | Encounter Summary ---
Author Organization [facility] Address [address] [place] [address]. [place] [address] [place] [address] Care Team Providers Care Psychiatric Np Name Role Phone Piyush Pandey MD Unavailable Unavailabl Megan Leos MD Primary Care Provider [phone] Sharmila Davis APRN, PICCOLO MECHANIC-C Unavailable Linda Block MD Unavailable [phone] Encounter Details Date Type Department Care Team (Late st Contact Info) Description 02/21/1999 Abstract SFL CONVERSION [address] [place] [address] , Generic MD Nikhil Social [...] st Contact Info) Description 09/25/2024 2:00 PM AUXILIARY OPERATOR Appointment [facility] [address] [place] [address] Zayra Powell, SENIOR ANALYTIC CONSULTANT [address] [place] [address] 10/16/2024 3:30 PM AUXILIARY OPERATOR Office Visit [facility] [address] [place] [phone] Brit Gonzáles MD [address] [place] [address] documented as of this encounter Visit Diagnoses Not on filedocumented in this encounter Care Teams Psychiatric Np Relationship Specialty Start Date End Date Megan Infante MD [address] [facility] [place] [address] PCP - General FAMILY PRACTICE 04/06/16 Piyush Pandey MD [place] Lost And Found Clerk CARDIOVASCULAR DISEASE 04/06/16 12/28/23 Sharmila Davis APRN, PICCOLO MECHANIC-C [address] [facility] [address] [place] [address] NURSE PRACTITIONER 01/04/17 04/03/24 Linda Block MD [address] [facility] [address] [place] [address] [place] Lost And Found Clerk CLINICAL CARDIAC ELECTROPHYSIOLOGY 02/08/17 04/12/23 documented as of this encounter
--- OUTSIDE RECORDS SUMMARY | 2024-09-03 19:21 | XMS_ITS | Encounter Summary ---
Author Organization [facility] Address [address] [place] [address]. [place] [address] [place] [address] Care Team Providers Care Complementary Health Therapists Name Role Phone Piyush Pandey MD Unavailable Unavailabl Megan Leos MD Primary Care Provider [phone] Sharmila Davis APRN, INSTRUMENT AND CONTROL SERVICE PERSON-C Unavailable [phone] Linda Block MD Unavailable [phone] Encounter Details Date Type Department Care Team (Late st Contact Info) Description 02/13/2000 Abstract SFL CONVERSION [address] [place] [address] , Generic MD Nikhil Social [...] st Contact Info) Description 09/25/2024 2:00 PM ETHICS INSTRUCTOR Appointment [facility] [address] [place] [address] Zayra Powell, APPEALS MANAGER [address] [place] [address] 10/16/2024 3:30 PM ETHICS INSTRUCTOR Office Visit [facility] [address] [place] [phone] Brit Gonzáles MD [address] [place] [address] documented as of this encounter Visit Diagnoses Not on filedocumented in this encounter Care Teams Complementary Health Therapists Relationship Specialty Start Date End Date Megan Infante MD [address] [place] [address] PCP - General FAMILY PRACTICE 04/06/16 Piyush Pandey MD [place] Condominium Manager CARDIOVASCULAR DISEASE 04/06/16 12/28/23 Sharmila Davis APRN, INSTRUMENT AND CONTROL SERVICE PERSON-C [address] [facility] [address] [place] [address] NURSE PRACTITIONER 01/04/17 04/03/24 Linda Block MD 6[address] [facility] [address] [place] [address] [place] Condominium Manager CLINICAL CARDIAC ELECTROPHYSIOLOGY 02/08/17 04/12/23 documented as of this encounter
--- OUTSIDE RECORDS SUMMARY | 2024-09-03 19:21 | XMS_ITS | Encounter Summary ---
Author Organization [facility] Address [facility] [place] [address] [place] [address] Care Team Providers Care Institutional Aide Name Role Phone Piyush Pandey MD Unavailable Unavailabl e Megan Infante MD Primary Care Provider [phone] Sharmila Davis APRN, CELLAR HAND-C Unavailable Linda Block MD Unavailable [phone] Encounter Details Date Type Department Care Team (Late st Contact Info) Description 12/08/1999 Abstract SJS CONVERSION [address] [place] [address] Social History Tobacco Use Types [...] Contact Info) Description 09/25/2024 2:00 PM ACCESS CLERK Appointment [facility] [address] [place] [address] Zayra Powell, COLOR TECHNICIAN [address] [place] [address] 10/16/2024 3:30 PM ACCESS CLERK Office Visit [facility] [address] [place] [phone] Brit Gonzáles MD [address] [place] [address] documented as of this encounter Visit Diagnoses Not on filedocumented in this encounter Care Teams Institutional Aide Relationship Specialty Start Date End Date Megan Infante MD [address] [facility] [place] [address] PCP - General FAMILY PRACTICE 04/06/16 Piyush Pandey MD [place] Relay Shop Supervisor CARDIOVASCULAR DISEASE 04/06/16 12/28/23 Sharmila Davis, DRY CLEANING MACHINE OPERATOR HELPER, CELLAR HAND-C [address] [facility] [address] [place] [address] NURSE PRACTITIONER 01/04/17 04/03/24 Linda Block MD [address] [place] [address] [place] [address] Crane Relay Shop Supervisor CLINICAL CARDIAC ELECTROPHYSIOLOGY 02/08/17 04/12/23 documented as of this encounter
--- OUTSIDE RECORDS SUMMARY | 2024-09-03 19:21 | XMS_ITS | Encounter Summary ---
Author Organization [facility] Address [address] [place] [address]. [place] [address] [place] [address] Care Team Providers Care Gas Plant Repairer Name Role Phone Piyush Pandey MD Unavailable Unavailabl Megan Leos MD Primary Care Provider [phone] Sharmila Davis APRN, INSURANCE SALES ASSISTANT-C Unavailable Linda Block MD Unavailable [phone] Encounter Details Date Type Department Care Team (Late st Contact Info) Description 12/22/1999 Abstract SFL CONVERSION [address] [place] [address] , Generic MD Nikhil Social [...] st Contact Info) Description 09/25/2024 2:00 PM TELEGRAPHER AGENT Appointment [facility] [address] [place] [address] Zayra Powell, INVESTOR RELATIONS DIRECTOR [address] [place] [address] 10/16/2024 3:30 PM TELEGRAPHER AGENT Office Visit [facility] [address] [place] [phone] Brit Gonzáles MD [address] [place] [address] documented as of this encounter Visit Diagnoses Not on filedocumented in this encounter Care Teams Gas Plant Repairer Relationship Specialty Start Date End Date Megan Infante MD [address] [facility] [place] [address] PCP - General FAMILY PRACTICE 04/06/16 Piyush Pandey MD [place] Upholstery Repairer CARDIOVASCULAR DISEASE 04/06/16 12/28/23 Sharmila Davis APRN, INSURANCE SALES ASSISTANT-C [address] [facility] [address] [place] [address] NURSE PRACTITIONER 01/04/17 04/03/24 Linda Block MD [address] [facility] [address] [place] [address] [place] Upholstery Repairer CLINICAL CARDIAC ELECTROPHYSIOLOGY 02/08/17 04/12/23 documented as of this encounter
--- OUTSIDE RECORDS SUMMARY | 2024-09-03 19:21 | XMS_ITS | Encounter Summary ---
Author Organization [facility] Address [address] [place] [address]. [place] [address] [place] [address] Care Team Providers Care Senior Recruitment Consultant Name Role Phone Piyush Pandey MD Unavailable Unavailabl Megan Leos MD Primary Care Provider [phone] Sharmila Davis APRN UI UX ENGINEER-C Unavailable Linda Block MD Unavailable [phone] Encounter Details Date Type Department Care Team (Late st Contact Info) Description 01/07/2000 Abstract SFL CONVERSION [address] [place] [address] , Generic MD Nikhil Social [...] st Contact Info) Description 09/25/2024 2:00 PM FINANCIAL PLANNING ADVISER Appointment [facility] [address] [place] [address] Zayra Powell, PLASTIC SURGEON [address] [place] [address] 10/16/2024 3:30 PM FINANCIAL PLANNING ADVISER Office Visit [facility] [address] [place] [phone] Brit Gonzáles MD [address] [place] [address] documented as of this encounter Visit Diagnoses Not on filedocumented in this encounter Care Teams Senior Recruitment Consultant Relationship Specialty Start Date End Date Megan Infante MD [address] [facility] [place] [address] PCP - General FAMILY PRACTICE 04/06/16 Piyush Pandey MD [place] Gear Room Keeper CARDIOVASCULAR DISEASE 04/06/16 12/28/23 Sharmila Davis APRN, UI UX ENGINEER-C 6[address] [facility] [address] [place] [address] NURSE PRACTITIONER 01/04/17 04/03/24 Linda Block MD [address] [facility] [address] [place] [address] [place] Gear Room Keeper CLINICAL CARDIAC ELECTROPHYSIOLOGY 02/08/17 04/12/23 documented as of this encounter
--- OUTSIDE RECORDS SUMMARY | 2024-09-03 19:21 | XMS_ITS | Encounter Summary ---
Author Organization [facility] Address [address] [place] [address]. [place] [address] [place] [address] Care Team Providers Care Electronic Intelligence Officer Name Role Phone Piyush Pandey MD Unavailable Unavailabl e Megan Infante MD Primary Care Provider [phone] Sharmila Davis APRN, MANAGER GOVERNMENT-C Unavailable Linda Block MD Unavailable [phone] Encounter Details Date Type Department Care Team (Late st Contact Info) Description 08/02/1998 Abstract SJS CONVERSION [address] [place], [place] [address] , Generic ConversionMD Social History Tobacco Use [...] Contact Info) Description 09/25/2024 2:00 PM RESEARCH LEADER Appointment [facility] [address] [place] [address] Zayra Powell, CERTIFIED NURSE AIDE [address] [place] [address] 10/16/2024 3:30 PM RESEARCH LEADER Office Visit [facility] [address] [place] [phone] Brit Gonzáles MD [address] [place] [address] documented as of this encounter Visit Diagnoses Not on filedocumented in this encounter Care Teams Electronic Intelligence Officer Relationship Specialty Start Date End Date Megan Infante MD [address] [facility] [place] [address] PCP - General FAMILY PRACTICE 04/06/16 Piyush Pandey MD [place] Buzzsaw Operator CARDIOVASCULAR DISEASE 04/06/16 12/28/23 Sharmila Davis APRN, MANAGER GOVERNMENT-C 619 [facility] [address] [place] [address] NURSE PRACTITIONER 01/04/17 04/03/24 Linda Block MD [address] [facility] [address] [place] [address] [place] Buzzsaw Operator CLINICAL CARDIAC ELECTROPHYSIOLOGY 02/08/17 04/12/23 documented as of this encounter
--- OUTSIDE RECORDS SUMMARY | 2024-09-03 19:21 | XMS_ITS | Encounter Summary ---
Author Organization [facility] Address [address] [place] [address]. [place] [address] [place] [address] Care Team Providers Care Realtime Court Reporter Name Role Phone Piyush Pandey MD Unavailable Unavailabl Megan Leos MD Primary Care Provider [phone] Sharmila Davis APRN, KNOCKER OFF-C Unavailable [phone] Linda Block MD Unavailable [phone] Encounter Details Date Type Department Care Team (Late st Contact Info) Description 06/11/1999 Abstract SFL CONVERSION [address] [place] [address] , Generic MD Nikhil Social [...] st Contact Info) Description 09/25/2024 2:00 PM DIRECT CARE COUNSELOR Appointment [facility] [address] [place] [address] Zayra Powell, FLATBED DRIVER [address] [place] [address] 10/16/2024 3:30 PM DIRECT CARE COUNSELOR Office Visit [facility] [address] [place] [phone] Brit Gonzáles MD [address] [place] [address] documented as of this encounter Visit Diagnoses Not on filedocumented in this encounter Care Teams Realtime Court Reporter Relationship Specialty Start Date End Date Megan Infante MD [address] [facility] [place] [address] PCP - General FAMILY PRACTICE 04/06/16 Piyush Pandey MD [place] Senior Technical Business Analyst CARDIOVASCULAR DISEASE 04/06/16 12/28/23 Sharmila Davis APRN, KNOCKER OFF-C [address] [facility] [address] [place] [address] NURSE PRACTITIONER 01/04/17 04/03/24 Linda Block MD 619 [facility] [address] [place] [address] [place] Senior Technical Business Analyst CLINICAL CARDIAC ELECTROPHYSIOLOGY 02/08/17 04/12/23 documented as of this encounter
--- OUTSIDE RECORDS SUMMARY | 2024-09-03 19:21 | XMS_ITS | Encounter Summary ---
Author Organization [facility] Address [address] [place] [address]. [place] [address] [place] [address] Care Team Providers Care Husbandry Technician Name Role Phone Piyush Pandey MD Unavailable Unavailabl Megan Leos MD Primary Care Provider [phone] Sharmila Davis APRN, MONOGRAM AND LETTER PASTER-C Unavailable [phone] Linda Block MD Unavailable [phone] Encounter Details Date Type Department Care Team (Late st Contact Info) Description 02/07/1998 Abstract SFL CONVERSION [address] [place] [address] , Generic MD Nikhil Social [...] st Contact Info) Description 09/25/2024 2:00 PM ARCHITECTURAL SUPERINTENDENT Appointment [facility] [address] [place] [address] Zayra Powell, AUTOMATIC GRINDING MACHINE OPERATOR [address] [place] [address] 10/16/2024 3:30 PM ARCHITECTURAL SUPERINTENDENT Office Visit [facility] [address] [place] [phone] Brit Gonzáles MD [address] [place] [address] documented as of this encounter Visit Diagnoses Not on filedocumented in this encounter Care Teams Husbandry Technician Relationship Specialty Start Date End Date Megan Infante MD [address] [facility] [place] [address] PCP - General FAMILY PRACTICE 04/06/16 Piyuhs Pandey MD [place] Coil Strapper CARDIOVASCULAR DISEASE 04/06/16 12/28/23 Sharmila Davis APRN, MONOGRAM AND LETTER PASTER-C [address] [facility] [address] [place] [address] NURSE PRACTITIONER 01/04/17 04/03/24 Linda Block MD 619 [facility] [address] [place] [address] [place] Coil Strapper CLINICAL CARDIAC ELECTROPHYSIOLOGY 02/08/17 04/12/23 documented as of this encounter
--- OUTSIDE RECORDS SUMMARY | 2024-09-03 19:21 | XMS_ITS | Encounter Summary ---
Author Organization [facility] Address [address] [place] [address]. [place] [address] [place] [address] Care Team Providers Care Inverted Block Operator Name Role Phone Piyush Pandey MD Unavailable Unavailabl Megan Leos MD Primary Care Provider [phone] Sharmila Davis APRN, HEALTH CLINICIAN-C Unavailable Linda Block MD Unavailable [phone] Encounter Details Date Type Department Care Team (Late st Contact Info) Description 12/25/1998 Abstract SFL CONVERSION [address] [place] [address] , Generic MD Nikhil Social [...] Contact Info) Description 09/25/2024 2:00 PM STRUCTURAL WORKER Appointment [facility] [address] [place] [address] Zayra Powell, REJECTOR [address] [place] [address] 10/16/2024 3:30 PM STRUCTURAL WORKER Office Visit [facility] [address] [place] [address] Brit Gonzáles MD [address] [place] [address] documented as of this encounter Visit Diagnoses Not on filedocumented in this encounter Care Teams Inverted Block Operator Relationship Specialty Start Date End Date Megan Infante MD [address] [facility] [place] [address] PCP - General FAMILY PRACTICE 04/06/16 Piyush Pandey MD [place] Medical Biller Coder CARDIOVASCULAR DISEASE 04/06/16 12/28/23 Sharmila Davis APRN, HEALTH CLINICIAN-C [address] [facility] [address] [place] [address] NURSE PRACTITIONER 01/04/17 04/03/24 Linda Block MD 619 [facility] [address] [place] [address] [place] Medical Biller Coder CLINICAL CARDIAC ELECTROPHYSIOLOGY 02/08/17 04/12/23 documented as of this encounter
--- OUTSIDE RECORDS SUMMARY | 2024-09-03 19:21 | XMS_ITS | Encounter Summary ---
Author Organization [facility] Address [address] [place] [address]. [place] [address] [place] [address] Care Team Providers Care Manager Internship Name Role Phone Piyush Pandey MD Unavailable Unavailabl Megan Leos MD Primary Care Provider [phone] Sharmila Davis APRN, STUDENT RECORDS COORDINATOR-C Unavailable Linda Block MD Unavailable [phone] Encounter Details Date Type Department Care Team (Late st Contact Info) Description 03/03/2000 Abstract SFL CONVERSION [address] [place] [address] , Generic MD Nikhil Social [...] st Contact Info) Description 09/25/2024 2:00 PM BOILER REPAIRMAN Appointment [facility] [address] [place] [address] Zayra Powell, SUPERVISING BROKER [address] [place] [address] 10/16/2024 3:30 PM BOILER REPAIRMAN Office Visit [facility] [address] [place] [address] Brit Gonzáles MD [address] [place] [address] documented as of this encounter Visit Diagnoses Not on filedocumented in this encounter Care Teams Manager Internship Relationship Specialty Start Date End Date Megan Infante MD 12[address] [facility] [place] [address] PCP - General FAMILY PRACTICE 04/06/16 Piyush Pandey MD [place] Adjunct Professor Of [place]. History CARDIOVASCULAR DISEASE 04/06/16 12/28/23 Sharmila Davis APRN, STUDENT RECORDS COORDINATOR-C 6[address] [facility] [address] [place] [address] NURSE PRACTITIONER 01/04/17 04/03/24 Linda Block MD 619 [facility] [address] [place] [address] [place] Adjunct Professor Of [place]. History CLINICAL CARDIAC ELECTROPHYSIOLOGY 02/08/17 04/12/23 documented as of this encounter
--- OUTSIDE RECORDS SUMMARY | 2024-09-03 19:21 | XMS_ITS | Encounter Summary ---
Author Organization [facility] Address [address] [place] [address]. [place] [address] [place] [address] Care Team Providers Care Boring Machine Set Up Operator Name Role Phone Piyush Pandey MD Unavailable Unavailabl Megan Leos MD Primary Care Provider [phone] Sharmila Davis APRN, MIXING OPERATOR-C Unavailable [phone] Linda Block MD Unavailable [phone] Encounter Details Date Type Department Care Team (Late st Contact Info) Description 05/17/1998 Abstract SFL CONVERSION [address] [place] [address] , Generic MD Nikhil Social [...] st Contact Info) Description 09/25/2024 2:00 PM HEARING AID MECHANIC Appointment [facility] [address] [place] [address] Zayra Powell, AIRCRAFT SERVICER [address] [place] [address] 10/16/2024 3:30 PM HEARING AID MECHANIC Office Visit [facility] [address] [place] [phone] Brit Gonzáles MD [address] [place] [address] documented as of this encounter Visit Diagnoses Not on filedocumented in this encounter Care Teams Boring Machine Set Up Operator Relationship Specialty Start Date End Date Megan Infante MD [address] [facility] [place] [address] PCP - General FAMILY PRACTICE 04/06/16 Piyush Pandey MD [place] Transportation Department Head CARDIOVASCULAR DISEASE 04/06/16 12/28/23 Sharmila Davis APRN, MIXING OPERATOR-C [address]19 [facility] [address] [place] [address] NURSE PRACTITIONER 01/04/17 04/03/24 Linda Block MD 619 [facility] [address] [place] [address] [place] Transportation Department Head CLINICAL CARDIAC ELECTROPHYSIOLOGY 02/08/17 04/12/23 documented as of this encounter
--- OUTSIDE RECORDS SUMMARY | 2024-09-03 19:21 | XMS_ITS | Encounter Summary ---
Author Organization [facility] Address [address] [place] [address]. [place] [address] [place] [address] Care Team Providers Care Recreation Adviser Name Role Phone Piyush Pandey MD Unavailable Unavailabl Megan Leos MD Primary Care Provider [phone] Sharmila Davis APRN, MOBILE HOME LABORER-C Unavailable Linda Block MD Unavailable [phone] Encounter Details Date Type Department Care Team (Late st Contact Info) Description 01/23/2000 Abstract SFL CONVERSION [address] [place] [address] , Generic MD Nikhil Social [...] st Contact Info) Description 09/25/2024 2:00 PM CLINICAL IMPLEMENTATION SPECIALIST Appointment [facility] [address] [place] [address] Zayra Powell, HEALTHCARE PROF [address] [place] [address] 10/16/2024 3:30 PM CLINICAL IMPLEMENTATION SPECIALIST Office Visit [facility] [address] [place] [phone] Brit Gonzáles MD [address] [place] [address] documented as of this encounter Visit Diagnoses Not on filedocumented in this encounter Care Teams Recreation Adviser Relationship Specialty Start Date End Date Megan Infante MD [address] [facility] [place] [address] PCP - General FAMILY PRACTICE 04/06/16 Piyush Pandey MD [place] Radio Host CARDIOVASCULAR DISEASE 04/06/16 12/28/23 Sharmila Davis APRN, MOBILE HOME LABORER-C [address] [facility] [address] [place] [address] NURSE PRACTITIONER 01/04/17 04/03/24 Linda Block MD 619 [facility] [address] [place] [address] [place] Radio Host CLINICAL CARDIAC ELECTROPHYSIOLOGY 02/08/17 04/12/23 documented as of this encounter
--- OUTSIDE RECORDS SUMMARY | 2024-09-03 19:21 | XMS_ITS | Encounter Summary ---
Author Organization [facility] Address [address] [place] [address]. [place] [address] [place] [address] Care Team Providers Care Merchandising Specialist Name Role Phone Piyush Pandey MD Unavailable Unavailabl Megan Leos MD Primary Care Provider [phone] Sharmila Davis APRN, ENVIRONMENTAL EDUCATOR-C Unavailable Linda Block MD Unavailable [phone] Encounter Details Date Type Department Care Team (Late st Contact Info) Description 12/01/1999 Abstract SFL CONVERSION [address] [place] [address] , Generic MD Nikhil [...] Contact Info) Description 09/25/2024 2:00 PM COAT OPERATOR Appointment [facility] [address] [place] [address] Zayra Powell, ENGINEER SECOND ASSISTANT [address] [place] [address] 10/16/2024 3:30 PM COAT OPERATOR Office Visit [facility] [address] [place] [address] Brit Gonzáles MD [address] [place] [address] documented as of this encounter Visit Diagnoses Not on filedocumented in this encounter Care Teams Merchandising Specialist Relationship Specialty Start Date End Date Megan Infante MD [address] [facility] [place] [address] PCP - General FAMILY PRACTICE 04/06/16 Piyush Pandey MD [place] Director Process CARDIOVASCULAR DISEASE 04/06/16 12/28/23 Sharmila Davis APRN, ENVIRONMENTAL EDUCATOR-C 6[address] [facility] [address] [place] [address] NURSE PRACTITIONER 01/04/17 04/03/24 Linda Block MD 619 [facility] [address] [place] [address] [place] Director Process CLINICAL CARDIAC ELECTROPHYSIOLOGY 02/08/17 04/12/23 documented as of this encounter
--- OUTSIDE RECORDS SUMMARY | 2024-09-03 19:21 | XMS_ITS | Encounter Summary ---
Author Organization [facility] Address [facility] [place] [address] [place] [address] Care Team Providers Care Medicaid Collection Specialist Name Role Phone Piyush Pandey MD Unavailable Unavailabl e Megan Infante MD Primary Care Provider [phone] Sharmila Davis APRN, AUTOMATIC VULCANIZING LEAD OPERATOR-C Unavailable [phone] Linda Block MD Unavailable [phone] Encounter Details Date Type Department Care Team (Late st Contact Info) Description 01/07/2000 Abstract SJS CONVERSION [address] [place], [place] [address] Jacinto Delgado MD [address] [facility] [address]P25 [place] [address] Social History Tobacco Use Types Packs/Day Years [...] st Contact Info) Description 09/25/2024 2:00 PM SCHOOL ADJUSTMENT COUNSELOR Appointment [facility] [address] [place] [address] Zayra Powell FNP [address] [place] [address] 10/16/2024 3:30 PM SCHOOL ADJUSTMENT COUNSELOR Office Visit [facility] [address] [place] [address] Brit Gonzáles MD 619 [place] [address] documented as of this encounter Visit Diagnoses Not on filedocumented in this encounter Care Teams Medicaid Collection Specialist Relationship Specialty Start Date End Date Megan Infante MD [address] [place] [address] PCP - General FAMILY PRACTICE 04/06/16 Piyush Pandey MD [place] Mascara Molder CARDIOVASCULAR DISEASE 04/06/16 12/28/23 Sharmila Davis APRN, AUTOMATIC VULCANIZING LEAD OPERATOR-C 619 [facility] 4K97 [place] [address] NURSE PRACTITIONER 01/04/17 04/03/24 Linda Block MD 619 [facility] [address] [place] [address] [place] Mascara Molder CLINICAL CARDIAC ELECTROPHYSIOLOGY 02/08/17 04/12/23 documented as of this encounter
--- OUTSIDE RECORDS SUMMARY | 2024-09-03 19:21 | XMS_ITS | Encounter Summary ---
Author Organization [facility] Address [address] [place] [address]. [place] [address] [place] [address] Care Team Providers Care Founder And Chief Executive Officer Name Role Phone Piyush Pandey MD Unavailable Unavailabl Megan Leos MD Primary Care Provider [phone] Sharmila Davis APRN, HELPER MAINTENANCE CLEANING-C Unavailable Linda Block MD Unavailable [phone] Encounter Details Date Type Department Care Team (Late st Contact Info) Description 10/25/1998 Abstract SFL CONVERSION [address] [place] [address] , Generic MD Nikhil Social [...] st Contact Info) Description 09/25/2024 2:00 PM SEPTIC TECHNICIAN Appointment [facility] [address] [place] [address] Zayra Powell, MILK TREATER [address] [place] [address] 10/16/2024 3:30 PM SEPTIC TECHNICIAN Office Visit [facility] [address] [place] [phone] Brit Gonzáles MD [address] [place] [address] documented as of this encounter Visit Diagnoses Not on filedocumented in this encounter Care Teams Founder And Chief Executive Officer Relationship Specialty Start Date End Date Megan Infante MD [address] [facility] [place] [address] PCP - General FAMILY PRACTICE 04/06/16 Piyush Pandey MD [facility] Billing Adjudicator CARDIOVASCULAR DISEASE 04/06/16 12/28/23 Sharmila Davis APRN, HELPER MAINTENANCE CLEANING-C 619 [facility] 4P57 [place] [address] NURSE PRACTITIONER 01/04/17 04/03/24 Linda Block MD 619 [facility] 4P57 [place] [address] [facility] Billing Adjudicator CLINICAL CARDIAC ELECTROPHYSIOLOGY 02/08/17 04/12/23 documented as of this encounter
--- OUTSIDE RECORDS SUMMARY | 2024-09-03 19:21 | XMS_ITS | Encounter Summary ---
Author Organization [facility] Address [address] [place] [address]. [place] [address] [place] [address] Care Team Providers Care Recreational Programs Director Name Role Phone Piyush Pandey MD Unavailable Unavailabl Megan Leos MD Primary Care Provider [phone] Sharmila Davis APRN, SOLE BUFFER-C Unavailable [phone] Linda Block MD Unavailable [phone] Encounter Details Date Type Department Care Team (Late st Contact Info) Description 02/24/2000 Abstract SFL CONVERSION [address] [place] [address] , Generic MD Nikhil Social [...] st Contact Info) Description 09/25/2024 2:00 PM WHEEL ASSEMBLER Appointment [facility] [address] [place] [address] Zayra Powell, HYDROGEN BRAZE FURNACE OPERATOR [address] [place] [address] 10/16/2024 3:30 PM WHEEL ASSEMBLER Office Visit [facility] [address] [place] [phone] Brit Gonzáles MD [address] [place] [address] documented as of this encounter Visit Diagnoses Not on filedocumented in this encounter Care Teams Recreational Programs Director Relationship Specialty Start Date End Date Megan Infante MD [address] [facility] [place] [address] PCP - General FAMILY PRACTICE 04/06/16 Piyush Pandey MD [place] Financial Advocate CARDIOVASCULAR DISEASE 04/06/16 12/28/23 Sharmila Davis APRN, SOLE BUFFER-C 619 [facility] [address]P57 [place] [address] NURSE PRACTITIONER 01/04/17 04/03/24 Linda Block MD 619 [facility] [address] [place] [address] [place] Financial Advocate CLINICAL CARDIAC ELECTROPHYSIOLOGY 02/08/17 04/12/23 documented as of this encounter
--- OUTSIDE RECORDS SUMMARY | 2024-09-03 19:21 | XMS_ITS | Encounter Summary ---
Author Organization [facility] Address [address] [place] [address]. [place] [address] [place] [address] Care Team Providers Care Aviation Technician Name Role Phone Piyush Pandey MD Unavailable Unavailabl Megan Leos MD Primary Care Provider [phone] Sharmila Davis APRN, CASH PROCESSOR-C Unavailable Linda Block MD Unavailable [phone] Encounter Details Date Type Department Care Team (Late st Contact Info) Description 09/09/1998 Abstract SFL CONVERSION [address] [place] [address] , Generic MD Nikhil Social [...] st Contact Info) Description 09/25/2024 2:00 PM INTERVENTIONAL PAIN PHYSICIAN Appointment [facility] [address] [place] [address] Zayra Powell, ASSOCIATE DIRECTOR [address] [place] [address] 10/16/2024 3:30 PM INTERVENTIONAL PAIN PHYSICIAN Office Visit [facility] [address] [place] [address] Brit Gonzálse MD [address] [place] [address] documented as of this encounter Visit Diagnoses Not on filedocumented in this encounter Care Teams Aviation Technician Relationship Specialty Start Date End Date Megan Infante MD [address] [facility] [place] [address] PCP - General FAMILY PRACTICE 04/06/16 Piyush Pandey MD [place] Weight And Balance Control Agent CARDIOVASCULAR DISEASE 04/06/16 12/28/23 Sharmila Davis APRN, CASH PROCESSOR-C [address] [facility] 4P57 [place] [address] NURSE PRACTITIONER 01/04/17 04/03/24 Linda Block MD 619 [facility] 4P57 [place] [address] [place] Weight And Balance Control Agent CLINICAL CARDIAC ELECTROPHYSIOLOGY 02/08/17 04/12/23 documented as of this encounter
--- OUTSIDE RECORDS SUMMARY | 2024-09-03 19:21 | XMS_ITS | Encounter Summary ---
Author Organization [facility] Address [address] [place] [address]. [place] [address] [place] [address] Care Team Providers Care Parking Lot Laborer Name Role Phone Piyush Pandey MD Unavailable Unavailabl Megan Leos MD Primary Care Provider [phone] Sharmila Davis APRN, ZMT OPERATOR-C Unavailable Linda Block MD Unavailable [phone] Encounter Details Date Type Department Care Team (Late st Contact Info) Description 11/02/1997 Abstract SFL CONVERSION [address] [place] [address] , Generic MD Nikhil Social [...] st Contact Info) Description 09/25/2024 2:00 PM MARKETING SUPPORT COORDINATOR Appointment [facility] [address] [place] [address] Zayra Powell, REPAIR DEPARTMENT MANAGER [address] [place] [address] 10/16/2024 3:30 PM MARKETING SUPPORT COORDINATOR Office Visit [facility] [address] [place] [address] Brit Gonzáles MD [address] [place] [address] documented as of this encounter Visit Diagnoses Not on filedocumented in this encounter Care Teams Parking Lot Laborer Relationship Specialty Start Date End Date Megan Infante MD 12[address] [facility] [place] [address] PCP - General FAMILY PRACTICE 04/06/16 Piyush Pandey MD [place] Manager Home CARDIOVASCULAR DISEASE 04/06/16 12/28/23 Sharmila Davis APRN, ZMT OPERATOR-C 619 [facility] 4P57 [place] [address] NURSE PRACTITIONER 01/04/17 04/03/24 Linda Block MD 619 [facility] [address] [place] [address] [place] Manager Home CLINICAL CARDIAC ELECTROPHYSIOLOGY 02/08/17 04/12/23 documented as of this encounter
--- OUTSIDE RECORDS SUMMARY | 2024-09-03 19:21 | XMS_ITS | Encounter Summary ---
Author Organization [facility] Address [address] [place] [address]. [place] [address] [place] [address] Care Team Providers Care High Pressure Boiler Operator Name Role Phone Piyush Pandey MD Unavailable Unavailabl Megan Leos MD Primary Care Provider [phone] Sharmila Davis APRN, FIRE OFFICER-C Unavailable Linda Block MD Unavailable [phone] Encounter Details Date Type Department Care Team (Late st Contact Info) Description 12/04/1999 Abstract SFL CONVERSION [address] [place] [address] , Generic MD Nikhil Social [...] Contact Info) Description 09/25/2024 2:00 PM FINISHED GARMENT INSPECTOR Appointment [facility] [address] [place] [address] Zayra Powell, VIDEO EDITING INTERNSHIP [address] [place] [address] 10/16/2024 3:30 PM FINISHED GARMENT INSPECTOR Office Visit [facility] [address] [place] [phone] Brit Gonzáles MD [address] [place] [address] documented as of this encounter Visit Diagnoses Not on filedocumented in this encounter Care Teams High Pressure Boiler Operator Relationship Specialty Start Date End Date Megan Infante MD [address] [facility] [place] [address] PCP - General FAMILY PRACTICE 04/06/16 Piyush Pandey MD [place] Client Server Programmer CARDIOVASCULAR DISEASE 04/06/16 12/28/23 Sharmila Davis APRN, FIRE OFFICER-C 619 [facility] [address]P57 [place] [address] NURSE PRACTITIONER 01/04/17 04/03/24 Linda Block MD 619 [facility] [address] [place] [address] [place] Client Server Programmer CLINICAL CARDIAC ELECTROPHYSIOLOGY 02/08/17 04/12/23 documented as of this encounter
--- OUTSIDE RECORDS SUMMARY | 2024-09-03 19:21 | XMS_ITS | Encounter Summary ---
Author Organization [facility] Address [address] [place] [address]. [place] [address] [place] [address] Care Team Providers Care International Tax Manager Name Role Phone Piyush Pandey MD Unavailable Unavailabl Megan Leos MD Primary Care Provider [phone] Sharmila Davis APRN, SENIOR MANAGER ASSET PROTECTION-C Unavailable [phone] Linda Block MD Unavailable [phone] Encounter Details Date Type Department Care Team (Late st Contact Info) Description 11/13/1999 Abstract SFL CONVERSION [address] [place] [address] , Generic MD Nikhil Social [...] st Contact Info) Description 09/25/2024 2:00 PM WRINKLE CHASER Appointment [facility] [address] [place] [address] Zayra Powell, EYE SURGEON [address] [place] [address] 10/16/2024 3:30 PM WRINKLE CHASER Office Visit [facility] [address] [place] [phone] Brti Gonzáles MD [address] [place] [address] documented as of this encounter Visit Diagnoses Not on filedocumented in this encounter Care Teams International Tax Manager Relationship Specialty Start Date End Date Megan Infante MD [address] [facility] [place] [address] PCP - General FAMILY PRACTICE 04/06/16 Piyush Pandey MD [place] Flexo Operator CARDIOVASCULAR DISEASE 04/06/16 12/28/23 Sharmila Davis APRN, SENIOR MANAGER ASSET PROTECTION-C 619 [facility] [address]P57 [place] [address] NURSE PRACTITIONER 01/04/17 04/03/24 Linda Block MD 619 [facility] [address] [place] [address] [place] Flexo Operator CLINICAL CARDIAC ELECTROPHYSIOLOGY 02/08/17 04/12/23 documented as of this encounter
--- OUTSIDE RECORDS SUMMARY | 2024-09-03 19:22 | XMS_ITS | Encounter Summary ---
Author Organization [facility] Address [address] [place] [address]. [place] [address] [place] [address] Care Team Providers Care Tank Builder Helper Name Role Phone Piyush Pandey MD Unavailable Unavailabl Megan Leos MD Primary Care Provider [phone] Sharmila Davis APRN, CHEMICAL PROCESSING TECHNICIAN-C Unavailable Linda Block MD Unavailable [phone] Encounter Details Date Type Department Care Team (Late st Contact Info) Description 12/15/1995 Abstract SFL CONVERSION [address] [place] [address] , Generic MD Nikhil Social [...] st Contact Info) Description 09/25/2024 2:00 PM BUY BOAT OPERATOR Appointment [facility] [address] [place] [address] Zayra Powell, STOCKROOM ASSOCIATE [address] [place] [address] 10/16/2024 3:30 PM BUY BOAT OPERATOR Office Visit [facility] [address] [place] [phone] Brit Gonzáles MD [address] [place] [address] documented as of this encounter Visit Diagnoses Not on filedocumented in this encounter Care Teams Tank Builder Helper Relationship Specialty Start Date End Date Megan Infante MD [address] [facility] [place] [address] PCP - General FAMILY PRACTICE 04/06/16 Piyush Pandey MD [place] Lumber Sticker CARDIOVASCULAR DISEASE 04/06/16 12/28/23 hSarmila Davis APRN, CHEMICAL PROCESSING TECHNICIAN-C 619 [facility] [address] [place] [address] NURSE PRACTITIONER 01/04/17 04/03/24 Linda Block MD 619 [facility] [address] [place] [address] [place] Lumber Sticker CLINICAL CARDIAC ELECTROPHYSIOLOGY 02/08/17 04/12/23 documented as of this encounter
--- OUTSIDE RECORDS SUMMARY | 2024-09-03 19:22 | XMS_ITS | Encounter Summary ---
Author Organization [facility] Address [address] [place] [address]. [place] [address] [place] [address] Care Team Providers Care Word Processor Name Role Phone Piyush Pandey MD Unavailable Unavailabl Megan Leos MD Primary Care Provider [phone] Sharmila Davis APRN LOAN DOCUMENTATION SPECIALIST-C Unavailable Linda Block MD Unavailable [phone] Encounter Details Date Type Department Care Team (Late st Contact Info) Description 09/07/1997 Abstract SFL CONVERSION [address] [place] [address] , Generic MD Nikhil Social [...] st Contact Info) Description 09/25/2024 2:00 PM INSECTICIDE MIXER Appointment [facility] [address] [place] [address] Zayra Powell, 3D ARTIST [address] [place] [address] 10/16/2024 3:30 PM INSECTICIDE MIXER Office Visit [facility] [address] [place] [phone] Brit Gonzáles MD [address] [place] [address] documented as of this encounter Visit Diagnoses Not on filedocumented in this encounter Care Teams Word Processor Relationship Specialty Start Date End Date Megan Infante MD [address] [facility] [place] [address] PCP - General FAMILY PRACTICE 04/06/16 Piyush Pandey MD [place] Substitute Bus Driver CARDIOVASCULAR DISEASE 04/06/16 12/28/23 Sharmila Davis APRN, LOAN DOCUMENTATION SPECIALIST-C 619 [facility] [address] [place] [address] NURSE PRACTITIONER 01/04/17 04/03/24 Linda Block MD 619 [facility] [address] [place] [address] [place] Substitute Bus Driver CLINICAL CARDIAC ELECTROPHYSIOLOGY 02/08/17 04/12/23 documented as of this encounter
--- OUTSIDE RECORDS SUMMARY | 2024-09-03 19:22 | XMS_ITS | Encounter Summary ---
Author Organization [facility] Address [address] [place] [address]. [place] [address] [place] [address] Care Team Providers Care Document Management Technician Name Role Phone Piyush Pandey MD Unavailable Unavailabl Megan Leos MD Primary Care Provider [phone] Sharmila Davis APRN, DISMANTLER-C Unavailable Linda Block MD Unavailable [phone] Encounter Details Date Type Department Care Team (Late st Contact Info) Description 12/14/1995 Abstract SFL CONVERSION [address] [place] [address] , Generic MD Nikhil Social [...] st Contact Info) Description 09/25/2024 2:00 PM RECEIVABLE EXECUTIVE Appointment [facility] [address] [place] [address] Zayar Powell, INTERNATIONAL OPERATIONS MANAGER [address] [place] [address] 10/16/2024 3:30 PM RECEIVABLE EXECUTIVE Office Visit [facility] [address] [place] [address] Brit Gonzáles MD [address] [place] [address] documented as of this encounter Visit Diagnoses Not on filedocumented in this encounter Care Teams Document Management Technician Relationship Specialty Start Date End Date Megan Infante MD [address] [facility] [place] [phone] PCP - General FAMILY PRACTICE 04/06/16 Piyush Pandey MD [place] Marine Superintendent CARDIOVASCULAR DISEASE 04/06/16 12/28/23 Sharmila Davis APRN, DISMANTLER-C 619 [facility] [address] [place] [address] NURSE PRACTITIONER 01/04/17 04/03/24 Linda Block MD 619 [facility] [address] [place] [address] [place] Marine Superintendent CLINICAL CARDIAC ELECTROPHYSIOLOGY 02/08/17 04/12/23 documented as of this encounter
--- OUTSIDE RECORDS SUMMARY | 2024-09-03 19:22 | XMS_ITS | Encounter Summary ---
Author Organization [facility] Address [address] [place] [address]. [place] [address] [place] [address] Care Team Providers Care Financial Sales Advisor Name Role Phone Piyush Pandey MD Unavailable Unavailabl Megan Leos MD Primary Care Provider [phone] Sharmila Davis APRN, TIRE SETTER-C Unavailable Linda Block MD Unavailable [phone] Encounter Details Date Type Department Care Team (Late st Contact Info) Description 03/05/1997 Abstract SFL CONVERSION [address] [place] [address] , Generic MD Nikhil Social [...] st Contact Info) Description 09/25/2024 2:00 PM VULCANIZER OPERATOR Appointment [facility] [address] [place] [address] Zayra Powell, DENTAL LABORATORY TECHNICIAN [address] [place] [address] 10/16/2024 3:30 PM VULCANIZER OPERATOR Office Visit [facility] [place] [address] [place] [phone] Brit Gonzáles MD [address] [place] [address] documented as of this encounter Visit Diagnoses Not on filedocumented in this encounter Care Teams Financial Sales Advisor Relationship Specialty Start Date End Date Megan Infante MD [address] [facility] [facility] [place] [address] PCP - General FAMILY PRACTICE 04/06/16 Piyush Pandey MD [place] Section Plotter Operator CARDIOVASCULAR DISEASE 04/06/16 12/28/23 Sharmila Davis APRN, TIRE SETTER-C 619 [facility] 4P57 [place] [address] NURSE PRACTITIONER 01/04/17 04/03/24 Linda Block MD 619 [facility] 4P57 [place] [address] [place] Section Plotter Operator CLINICAL CARDIAC ELECTROPHYSIOLOGY 02/08/17 04/12/23 documented as of this encounter
--- OUTSIDE RECORDS SUMMARY | 2024-09-03 19:22 | XMS_ITS | Encounter Summary ---
Author Organization [facility] Address [address] [place] [address]. [place] [address] [place] [address] Care Team Providers Care Office Executive Name Role Phone Piyush Pandey MD Unavailable Unavailabl Megan Leos MD Primary Care Provider [phone] Sharmila Davis APRN SKEIN YARN DYER HELPER-C Unavailable Linda Block MD Unavailable [phone] Encounter Details Date Type Department Care Team (Late st Contact Info) Description 01/05/1995 Abstract SFL CONVERSION [address] [place] [address] , Generic MD Nikhil Social [...] st Contact Info) Description 09/25/2024 2:00 PM MANAGING PRINCIPAL Appointment [facility] [address] [place] [address] Zayra Powell, MANAGER PERIOPERATIVE [address] [place] [address] 10/16/2024 3:30 PM MANAGING PRINCIPAL Office Visit [facility] [address] [place] [address] Brit Gonzáles MD [address] [place] [address] documented as of this encounter Visit Diagnoses Not on filedocumented in this encounter Care Teams Office Executive Relationship Specialty Start Date End Date Megan Infante MD [address] [facility] [place] [address] PCP - General FAMILY PRACTICE 04/06/16 Piyush Pandey MD [place] Care Connector CARDIOVASCULAR DISEASE 04/06/16 12/28/23 Sharmila Davis APRN, SKEIN YARN DYER HELPER-C [address] [facility] [address] [place] [address] NURSE PRACTITIONER 01/04/17 04/03/24 Linda Block MD 619 [facility] [address] [place] [address] [place] Care Connector CLINICAL CARDIAC ELECTROPHYSIOLOGY 02/08/17 04/12/23 documented as of this encounter
--- OUTSIDE RECORDS SUMMARY | 2024-09-03 19:22 | XMS_ITS | Encounter Summary ---
Author Organization [facility] Address [address] [place] [address]. [place] [address] [place] [address] Care Team Providers Care Airconditioning Plant Operator Name Role Phone Piyush Pandey MD Unavailable Unavailabl Megan Leos MD Primary Care Provider [phone] Sharmila Davis APRN, WOOL TAMPER-C Unavailable Linda Block MD Unavailable [phone] Encounter Details Date Type Department Care Team (Late st Contact Info) Description 10/06/1996 Abstract [facility] CONVERSION [address] [place] [address] , Generic MD Nikhil Social [...] st Contact Info) Description 09/25/2024 2:00 PM SECTIONAL BELT MOLD ASSEMBLER Appointment [facility] [address] [place] [address] Zayra Powell, COSTUME SEAMSTRESS [address] [place] [address] 10/16/2024 3:30 PM SECTIONAL BELT MOLD ASSEMBLER Office Visit [facility] [address] [place] [phone] Brit Gonzáles MD [address] [place] [address] documented as of this encounter Visit Diagnoses Not on filedocumented in this encounter Care Teams Airconditioning Plant Operator Relationship Specialty Start Date End Date Megan Infante MD [address] [facility] [place] [phone] PCP - General FAMILY PRACTICE 04/06/16 Piyush Pandey MD [place] Committee Member CARDIOVASCULAR DISEASE 04/06/16 12/28/23 Sharmila Davis APRN, WOOL TAMPER-C [address] [facility] [address] [place] [phone] NURSE PRACTITIONER 01/04/17 04/03/24 Linda Bolck MD [address] [facility] [address] [place] [address] [place] Committee Member CLINICAL CARDIAC ELECTROPHYSIOLOGY 02/08/17 04/12/23 documented as of this encounter
--- OUTSIDE RECORDS SUMMARY | 2024-09-03 19:22 | XMS_ITS | Encounter Summary ---
Author Organization [facility] Address [address] [place] [address]. [place] [address] [place] [address] Care Team Providers Care Warp Clamper Name Role Phone Piyush Pandey MD Unavailable Unavailabl Megan Leos MD Primary Care Provider [phone] Sharmila Davis APRN NICK SETTER-C Unavailable Linda Block MD Unavailable [phone] Encounter Details Date Type Department Care Team (Late st Contact Info) Description 08/01/1997 Abstract [facility] CONVERSION [address] [place] [address] , Generic MD Nikhil Social [...] st Contact Info) Description 09/25/2024 2:00 PM BODYBUILDER Appointment [facility] [address] [place] [address] Zayra Powell, DRY CANS BACK TENDER [address] [place] [address] 10/16/2024 3:30 PM BODYBUILDER Office Visit [facility] [address] [place] [phone] Brit Gonzáles MD [address] [place] [address] documented as of this encounter Visit Diagnoses Not on filedocumented in this encounter Care Teams Warp Clamper Relationship Specialty Start Date End Date Megan Infante MD [address] [facility] [place] [phone] PCP - General FAMILY PRACTICE 04/06/16 Piyush Pandey MD [place] Camp Attendant CARDIOVASCULAR DISEASE 04/06/16 12/28/23 Sharmila Davis APRN, NICK SETTER-C [address] [facility] [address] [place] [phone] NURSE PRACTITIONER 01/04/17 04/03/24 Linda Block MD [address] [facility] [address] [place] [address] [place] Camp Attendant CLINICAL CARDIAC ELECTROPHYSIOLOGY 02/08/17 04/12/23 documented as of this encounter
--- OUTSIDE RECORDS SUMMARY | 2024-09-03 19:22 | XMS_ITS | Encounter Summary ---
Author Organization [facility] Address [address] [place] [address]. [place] [address] [place] [address] Care Team Providers Care Sweep Molder Name Role Phone Piyush Pandey MD Unavailable Unavailabl Megan Leos MD Primary Care Provider [phone] Sharmila Davis APRN, PELT GRADER-C Unavailable [phone] Linda Block MD Unavailable [phone] Encounter Details Date Type Department Care Team (Late st Contact Info) Description 06/30/1996 Abstract [facility] CONVERSION [address] [place] [address] , Generic MD Nikhil Social [...] st Contact Info) Description 09/25/2024 2:00 PM PARTITION ASSEMBLY MACHINE OPERATOR Appointment [facility] [address] [place] [address] Zayra Powell, STEAM SHOVEL OPERATOR [address] [place] [address] 10/16/2024 3:30 PM PARTITION ASSEMBLY MACHINE OPERATOR Office Visit [facility] [address] [place] [phone] Brit Gonzáles MD [address] [place] [address] documented as of this encounter Visit Diagnoses Not on filedocumented in this encounter Care Teams Sweep Molder Relationship Specialty Start Date End Date Megan Infante MD [address] [facility] [place] [phone] PCP - General FAMILY PRACTICE 04/06/16 Piyush Pandey MD [place] Crystal Slicer CARDIOVASCULAR DISEASE 04/06/16 12/28/23 Sharmila Davis APRN, PELT GRADER-C [address] [facility] [address] [place] [address] NURSE PRACTITIONER 01/04/17 04/03/24 Linda Block MD [address] [facility] [address] [place] [address] [place] Crystal Slicer CLINICAL CARDIAC ELECTROPHYSIOLOGY 02/08/17 04/12/23 documented as of this encounter
--- OUTSIDE RECORDS SUMMARY | 2024-09-03 19:22 | XMS_ITS | Encounter Summary ---
Author Organization [facility] Address [address] [place] [address]. [place] [address] [place] [address] Care Team Providers Care Intake Clinician Name Role Phone Piyush Pandey MD Unavailable Unavailabl Megan Leos MD Primary Care Provider [phone] Sharmila Davis APRN, DUMPER BAILER OPERATOR-C Unavailable Linda Block MD Unavailable [phone] Encounter Details Date Type Department Care Team (Late st Contact Info) Description 09/17/1997 Abstract [facility] CONVERSION [address] [place] [address] , Generic MD Nikhil Social [...] st Contact Info) Description 09/25/2024 2:00 PM WAFER MACHINE OPERATOR Appointment [facility] [address] [place] [address] Zayra Powell, DRESS OPERATOR [address] [place] [address] 10/16/2024 3:30 PM WAFER MACHINE OPERATOR Office Visit [facility] [address] [place] [phone] Brit Gonzáles MD [address] [place] [address] documented as of this encounter Visit Diagnoses Not on filedocumented in this encounter Care Teams Intake Clinician Relationship Specialty Start Date End Date Megan Infante MD [address] [facility] [place] [phone] PCP - General FAMILY PRACTICE 04/06/16 Piyush Pandey MD [facility] CARDIOVASCULAR DISEASE 04/06/16 12/28/23 Sharmila Davis APRN, DUMPER BAILER OPERATOR-C [address] [facility] [address] [place] [phone] NURSE PRACTITIONER 01/04/17 04/03/24 Linda Block MD [address] [facility] [address] [place] [address] [facility] CLINICAL CARDIAC ELECTROPHYSIOLOGY 02/08/17 04/12/23 documented as of this encounter
--- OUTSIDE RECORDS SUMMARY | 2024-09-03 19:22 | XMS_ITS | Encounter Summary ---
Author Organization [facility] Address [address] [place] [address]. [place] [address] [place] [address] Care Team Providers Care Soaking Pit Operator Name Role Phone Piyush Pandey MD Unavailable Unavailabl Megan Leos MD Primary Care Provider [phone] Sharmila Davis APRN, RECYCLABLE MATERIALS COLLECTOR-C Unavailable Linda Block MD Unavailable [phone] Encounter Details Date Type Department Care Team (Late st Contact Info) Description 09/21/1997 Abstract [facility] CONVERSION [address] [place] [address] , Generic MD Nikhil Social [...] st Contact Info) Description 09/25/2024 2:00 PM SECURITY DOOR INSTALLER Appointment [facility] [address] [place] [address] Zayra Powell, DEBONER [address] [place] [address] 10/16/2024 3:30 PM SECURITY DOOR INSTALLER Office Visit [facility] [address] [place] [phone] Brit Gonzáles MD [address] [place] [address] documented as of this encounter Visit Diagnoses Not on filedocumented in this encounter Care Teams Soaking Pit Operator Relationship Specialty Start Date End Date Megan Infante MD [address] [place] [phone] PCP - General FAMILY PRACTICE 04/06/16 Piyush Pandey MD [place] CARDIOVASCULAR DISEASE 04/06/16 12/28/23 Sharmila Davis APRN, RECYCLABLE MATERIALS COLLECTOR-C [address] [facility] [address] [place] [phone] NURSE PRACTITIONER 01/04/17 04/03/24 Linda Block MD [address] [facility] [address] [place] [address] [place] [facility] [place] CLINICAL CARDIAC ELECTROPHYSIOLOGY 02/08/17 04/12/23 documented as of this encounter
--- OUTSIDE RECORDS SUMMARY | 2024-09-03 20:09 | XMS_ITS ---
Author Organization [facility] Address Unknown Problems Problem Status Start Date End Date HYPERTENSIVE HEART AND CHRON IC KIDNEY DISEASE WITH HEART FAILURE AND STAGE 1 THROUGH STAGE 4 CHRONIC KIDNEY DISEASE, OR UNSPECIFIED CHRONIC KIDNEY DISEASE (Primary) (I13.0 - ICD-10-CM) ACTIVE 01/04/2023 ACUTE ON CHRONIC COMBINED SY STOLIC (CONGESTIVE) AND DIASTOLIC (CONGESTIVE) HEART FAILURE (I50.43 - ICD-10-CM) ACTIVE CELLULITIS OF RIGHT LOWER LIMB (L03.115 - ICD-10-CM) A CTIVE 01/04/2023 CHRONIC OBSTRUCTIVE PULMONAR Y DISEASE, UNSPECIFIED (J44.9 - ICD-10-CM) ACTIVE 01/04/2023 TYPE 2 DIABETES MELLITUS WIT HOUT COMPLICATIONS (E11.9 - ICD-10-CM) ACTIVE 01/04/2023 CHRONIC KIDNEY DISEASE, STAG E 3 UNSPECIFIED (N18.30 - ICD-10-CM) ACTIVE 01/04/2023 PULMONARY HYPERTENSION, UNSPECIFIED (I27.20 - ICD-10-C M) ACTIVE 01/04/2023 PAROXYSMAL ATRIAL FIBRILLATION (I48.0 - ICD-10-CM) ACT ALEK 01/04/2023 ANXIETY DISORDER, UNSPECIFIED (F41.9 - ICD-10-CM) ACTI VE 01/04/2023 MILD PERSISTENT ASTHMA, UNCOMPLICATED (J45.30 - ICD-10 -CM) ACTIVE 01/04/2023 HYPERLIPIDEMIA, UNSPECIFIED (E78.5 - ICD-10-CM) ACTIVE 01/04/2023 RESTLESS LEGS SYNDROME (G25.81 - ICD-10-CM) ACTIVE 01/04/2023 UNSPECIFIED OSTEOARTHRITIS, UNSPECIFIED SITE (M19.90 - ICD-10-CM) ACTIVE 01/04/2023 WORK STUDY STUDENT (CURRENT) USE OF INSULIN (Z79.4 - ICD-10-CM) ACTIVE 01/04/2023 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 [address] Component Value Range Date Blood Reference-[facility] [place] See Attachment 01/06/2023 08:00 pm EDT Encounters Encounter Performer Performer Role Encounter Diagnoses Location Date Discharge - Discharged/Transf er-home/[place]/SLF/[place] with home health services - Private Home WITH Home Healthcare - Private Home [facility] 01/04/2023 01:46 pm EDT - 01/08/2023 02:49 pm EDT Immunizations Vaccine Date TB 2 Step [place] Skin Test 01/04/2023 0 9:00 pm EDT Pneumovax 23 Dose 1 04/17/2012 01:00 am EDT SARS-COV-2 (COVID-19) 07/29/2021 01:00 a m EST SARS-COV-2 (COVID-19) 11/14/2020 01:00 a m EDT SARS-COV-2 (COVID-19) 10/16/2020 01:00 a m EST Social History
--- OUTSIDE RECORDS SUMMARY | 2024-09-03 20:09 | XMS_ITS | Continuity of Care Document ---
Author Organization [facility], [facility] ([place]) Address [address] [place] [address] Care Team Providers Care Rn Transitional Name Role Phone MASHA PNIEDA Primary Care Provider KATINA FRANCIS Twill Cutter MASHA PINEDA Referring Provider [phone] Assessment Encounter Date Assessment Date Assessment LastModified by Organization Details LastModified Time 06/15/2024 06/15/2024 Mr. Lay is a pleasant 68-year-old male with a past medical history significant for type 2 diabetes mellitus with microvascular and macrovascular complications since 2004, hypertension, hyperlipidemia, CAD, valve replacement on chronic Coumadin therapy, GERD on pantoprazole is here for follow-up on his ALICIA with underlying chronic kidney disease. Baseline serum creatinine ranges between 1.1-1.3 however since March 2022 his serum creatinine level has been between 1.3-1.5. ? C hronic kidney disease stage III since March 2022 with a baseline serum creatinine between 1.3? 1 .5. Patient's most recent serum creatinine is noted to be 1.53 with a GFR of 45 Fluid and electrolyte balance are adequate. Patient's microalbumin/creat inine ratio is noted to be minimal at 13.1. Patient continues to hydrate well well and to avoid NSAIDs. Continue to monitor renal function panel at regular intervals. ? Nonnephrotic range proteinuria secondary to longstanding history of type 2 diabetes mellitus as well as hypertension Patient's microalbumin/creat inine ratio was noted be very minimal at 13.1. Patient is currently on Entresto. Patient is also on Jardiance 25 mg daily. Discussed about KDIGO recommendations to prevent CKD progression -Advised to undertake moderate-intensity physical activity for a cumulative duration of at least 150 minutes per week, or to a level compatible with their cardiovascular and physical tolerance -Patients should consume a balanced, healthy diet that is high in vegetables, , plant-based proteins, unsaturated fats, and lower in processed meats, refined carbohydrates, and sweetened beverages. -Sodium (<2 g/day) and protein intake (0.8 g/kg/day) in accordance with recommendations for the general population. - Suggest NOT to prescribe bisphosphonate treatment in people with GFR o30 ml/min/1.73 m2 (GFR categories G4-G5) without a strong clinical rationale. -Individualize Hba1c target goal of 6.5 to 8 % based on underlying comorbidities -Cessation of tobacco -Avoid Nephrotoxic agents -such as NSAIDS renal dosage of all medications to the appropriate GFR -Reduce albuminuria with use of STEVIE inhibitor or ARB -initiation of SGLT-2 Inhibitors if appropriate indication. ? H ypertension Patient's blood pressure is under good control. Patient will continue with his current med regimen and continue to follow a low-sodium diet. ? CKD/MBD Calcium and phosphorus are within normal range. ? Anemia of chronic disease Patient's hemoglobin is stable with no indication for YUE. The patient had the opportunity to ask and have questions answered. The patient voiced an understanding of the diagnosis and of the care plan and intent to comply with it. [email or web address] Not available 06/15/2024 17:22:56 Plan of Treatment Reminders Order Date Submit Date Provider Last Modified By Organization Details Last Modified Time Details Appointments [facility] Patient 15.EST 2024 01:00P M Dr. Katina Francis Not available Not available Not available Lab None recorde d. Referral None recorde d. Procedures None recorde d. Surgeries None recorde d. Imaging None recorde d. Medication Orders None recorde d. Patient TargetsNo targets recorded. Patient InstructionsNo instructions recorded. Reason for Referral None Reported. Results Created Date Observation Date Name Description Value Unit Range Abnormal Flag Note LastModifiedBy Organization Detail LastModifiedTime 06/20/2008/06/2023 imagi ng/di agnos tic resul t No observ ation record ed. [email or web address] Not Available 22:53:35 06/20/2008/07/2023 imagi ng/di agnos tic resul t No observ ation record ed. [email or web address] Not Available 22:53:36 Result Notes None recorded. Problems Name Problem SNOMED Code Status Onset Date Resolution Date Notes Provider Name and Address Organization Details Recorded Time Hyperkalemia 16638068 Active 2023 Leatha Deluna [facility] 4 10:23:34 Renal mass 790822794 Active 2023 Leatha Deluna [facility] 4 10:23:41 Chronic kidney disease stage 3A 600587176 Active 2023 Leathamackenzie Deluna [facility] 4 10:23:51 Congestive heart failure 11276313 [facility] 10:24:00 Vitamin D deficiency 39145007 Active 2023 Leathamackenzie Deluna [facility] 4 10:24:17 Dyspnea 197477657 Active 2023 Leatha Deluna [facility] 4 10:24:26 Decreased renal function 72794288 Active 2023 Tano Potter [facility] 4 11:05:35 Problem Notes None recorded. Procedures Surgical History Date Name Laterality Status Provider Name and Address Organization Details Recorded Time Appendectomy completed Not Available Health Note 03/09/2024 12:07:18 Colonoscopy with biopsy completed Not Available Health Note 03/09/2024 12:07:18 Total hip arthroplasty completed Not Available Health Note 03/09/2024 12:07:18 Total knee arthroplasty completed Not Available Health Note 03/09/2024 12:07:18 Imaging Results None recorded. Procedure Notes None recorded. Medical Equipment None Reported. Allergies No known drug allergies Medications Name Sig Start Date Stop Date Status Note LastModified by Organization Details LastModified Time Prescript ion - New active Tumbling And Rolling Supervisor: SOO SR ([facility] ) , Durable Med Equipmen t Not Available Not Available Not Available losartan 50 mg tablet 03/16 completed Not Available Not Available Not Available cyclobenz aprine 10 mg tablet active Not Available Not Available No t Available furosemid e 40 mg tablet 03/16 completed Not Available Not Available Not Available metolazon e 2.5 mg tablet active Not Available Not Available Not Available dicloxaci llin 500 mg capsule 03/16 completed Not Available Not Available Not Available metformin 500 mg tablet 03/16 completed Not Available Not Available Not Available atorvasta tin 80 mg tablet active Not Available Not Available Not Available clindamyc in HCl 300 mg capsule 03/16 completed Not Available Not Available Not Available gabapenti n 400 mg capsule active Not Available Not Available Not Available glipizide ER 5 mg tablet, extended release 24 hr active Not Available Not Available Not Available hydroxyzi ne HCl 50 mg tablet active Not Available Not Available No t Available ciproflox acin 500 mg tablet active Not Available Not Available No t Available hydrocodo ne 10 mg-acetam inophen 325 mg tablet active Not Available Not Available Not Available triamcino lone acetonide 0.1 % topical cream active Not Available Not Available Not Available spironola ctone 25 mg tablet active Not Available Not Available No t Available carvedilo l 3.125 mg tablet active Not Available Not Available No t Available amoxicill in 875 mg tablet 03/16 completed Not Available Not Available Not Available warfarin 6 mg tablet active Not Available Not Available Not Available tamsulosi n 0.4 mg capsule active Not Available Not Available Not Available furosemid e 80 mg tablet active Not Available Not Available Not Available trazodone 100 mg tablet 03/16 completed Not Available Not Available Not Available OneTouch Ultra Test strips active Not Available Not Available Not Available hydrocodo ne 7.5 mg-acetam inophen 325 mg tablet active Not Available Not Available Not Available cephalexi n 500 mg capsule active Not Available Not Available Not Available pantopraz ole 40 mg tablet,de layed release active Not Available Not Available Not Available trazodone 150 mg tablet active Not Available Not Available Not Available nystatin 100,000 unit/gram topical cream active Not Available Not Available Not Available warfarin 5 mg tablet active Not Available Not Available Not Available losartan 25 mg tablet active Not Available Not Available Not Available allopurin ol 300 mg tablet active Not Available Not Available Not Available mupirocin 2 % topical ointment active Not Available Not Available Not Available gabapenti n 100 mg capsule 03/16 completed Not Available Not Available Not Available warfarin 1 mg tablet active Not Available Not Available Not Available levofloxa joel 500 mg tablet active Not Available Not Available No t Available dicloxaci llin 250 mg capsule 03/16 completed Not Available Not Available Not Available sertralin e 50 mg tablet active Not Available Not Available Not Available Ventolin HFA 90 mcg/actua tion aerosol inhaler active Not Available Not Available Not Available ropinirol e 4 mg tablet active Not Available Not Available Not Available enoxapari n 100 mg/mL subcutane ous syringe 03/16 completed Not Available Not Available Not Available pregabali n 150 mg capsule active Not Available Not Available Not Available Jardiance 25 mg tablet active Not Available Not Available Not Available Entresto 24 mg-26 mg tablet active Not Available Not Available No t Available insulin degludec (U-200) 200 unit/mL (3 mL) subcutane ous pen active Not Available Not Available Not Available BD Ultra-Fin e Micro Pen Needle 32 gauge x 08/26 active Not Available Not Available Not Available Trelegy Ellipta 100 mcg-62.5 mcg-25 mcg powder for inhalatio n active Not Available Not Available Not Available Lotemax SM 0.38 % eye gel drops active Not Available Not Available Not Available OneTouch Ultra2 Meter active Not Available Not Available Not Available Ozempic 1 mg/dose (4 mg/3 mL) subcutane ous pen injector active Not Available Not Available Not Available Paxlovid 150 mg-100 mg tablets in a dose pack (Renal Dose) TAKE 1 TABLET BY MOUTH TK 2 NIRMATRE LVIR TS AND 1 RITONAVI R T TOGETHER PO active Not Available Not Available No t Available Ozempic 0.25 mg or 0.5 mg (2 mg/3 mL) subcutane ous pen injector 03/16 completed Not Available Not Available Not Available Vitals Date Recorded Body height Heart rate Systolic blood pressure Diastolic blood pressure Provider Name and Address Organization Details Last Updated DateTime 06/15/2024 167.64 cm 91 /min 106 mm[Hg] 54 mm[Hg] [facility] 06/15/2024 11:30:13 Social History Question Answer Notes LastModified by [email or web address] Details LastModified Time Do You Have An Advance Directive? No [email or web address] Information not available 03/09/2024 What Is Your Level Of Alcohol Consumption? Occasional [email or web address] Information not available 03/09/2024 How Many Times Per Week Do You Consume Alcohol? 1-2 Times Per Week [email or web address] Information not available 03/09/2024 What Is Your Level Of Caffeine Consumption? Moderate [email or web address] Information not available 03/09/2024 Are You Currently Employed? No [email or web address] Information not available 03/09/2024 What Is Your Occupation? Retired [email or web address] Information not available 03/09/2024 How Many Times Per Week Do You Exercise? Less Than 1 Time Per Week [email or web address] Information not available 03/09/2024 Smokeless Tobacco? Former Smokeless Tobacco User [email or web address] Information not available 03/09/2024 When Did You Quit Smoking? 1980 [email or web address] Information not available 03/09/2024 Do You Have A Medical Power Of Amusement Or Recreation Card Checker? No [email or web address] Information not available 03/09/2024 What Was The Date Of Your Most Recent Tobacco Screening? 03/16/2024 [email or web address] Information not available 03/09/2024 What Is Your Relationship Status? [email or web address] Information not available 03/09/2024 Do You Use Any Illicit Or Recreational Drugs? No [email or web address] Information not available 03/09/2024 Sex: Unknown Functional Status Question Answer Note LastModified by [email or web address] Details LastModified Time What is your exercise level? Occasional [email or web address] Information not available 03/09/2024 Mental Status None recorded. Family History Relationship Description Onset Age of this Age Resolved Age Notes LastModified by Organization Details LastModified Time Father No current problems or disability [email or web address] Not available 03/09 12:07:17 Mother No current problems or disability [email or web address] Not available 03/09 12:07:17 Medical History Condition Response Diabetes Y Anxiety Disorder N Bleeding Disorder N Attention-deficit Hyperactivity Disorder N High Blood Pressure N Arthritis Y Hyperlipidemia N Cancer N Stroke N Thyroid Problems N Asthma N Depression N COPD Y Anemia N Seizures N Heart Disease Y Fibromyalgia N Osteoporosis N Kidney Disease Y Past Encounters Encounter ID Performer Location Encounter Start Date Encounter Closed Date Diagnosis/Indication Diagnosis SNOMED-CT Code Diagnosis ICD10 Code Diagnosis Note [id number] Theresa Sheriff PA-C [facility] ([place]) [address] [place] [address] 06/15/2024 11:12:17 06/15/2024 11:50:06 Chronic kidney disease stage 3A 952169188 N18.31 Health Concerns Section Related Observation LastModified by Organization Detai ls LastModified Time None Recorded Concern Status LastModified by Organization Details LastModified Time None Recorded Payers Encounter Date Sequence Insurance Name Policy Number Policy Vicente Covered Member ID Vicente Member ID Guarantor Name 06/15/2024 1 [place] Mendez Lay [id number] Mendez Lay Notes Date Note Type Note Provider Name and Address Organization Details Recorded Time 06/15/2024 text/html Mr. Lay is a pleasant 68-year-old male with a past medical history significant for type 2 diabetes mellitus with microvascular and macrovascular complications since 2004, hypertension, hyperlipidemia, CAD, valve replacement on chronic Coumadin therapy, GERD on pantoprazole is here for follow-up on his ALICIA with underlying chronic kidney disease. Baseline serum creatinine ranges between 1.1-1.3 however since March 2022 his serum creatinine level has been between 1.3-1.5. Patient is seated comfort in wheelchair. He denies any fever, chills, or sweats. He denies any chest pain or shortness of breath. He continues to hydrate well and to avoid NSAIDs. Overall since his last visit he thinks he has been doing okay. Theresa Sheriff PA-C [address] [place] [address], [phone], [facility] 06/15/2024 17:23:12
--- OUTSIDE RECORDS SUMMARY | 2024-09-03 20:09 | XMS_ITS ---
Author Organization [facility] Address [address] [place], [place] [id number] Care Team Providers Care Dairy Bar Manager Name Role Phone DonalRONALD baltazar Unavailable [phone] Megan Infante Unavailable Unavailable KARLA GUNN Unavailable [phone] REASON FOR VISIT *General care Medications Medication SIG (Take, Route, Frequency, Duration) Notes Start Date End Date Status Clotrimazole-Bet amethasone 1-0.05 % 1 application Externally Twice a day 07/06/2024 Active dofetilide 0.125 MG Oral Capsule [Tikosyn] ORAL dofetilide 0.125 MG Oral Capsule [Tikosyn]Original Medicationdofetilide 0.125 MG Oral Capsule [Tikosyn] *[facility] Interaction Alert[facility]* 09/10/2014 Active warfarin sodium 2 MG Oral Tablet [Coumadin] ORAL warfarin sodium 2 MG Oral Tablet [Coumadin]Original Medicationwarfarin sodium 2 MG Oral Tablet [Coumadin] *Reorder from [facility] for eRx and Interaction Alerts* 09/10/2014 Active glipiZIDE 5 MG Oral Tablet ORAL glipizide 5 MG Oral TabletOriginal Medicationglipizide 5 MG Oral Tablet *Reorder from [facility] for eRx and Interaction Alerts* 09/10/2014 Active Encounters Encounter Location Date Provider Diagnosis [facility] [place] [address] [place], [place] [id number] 07/06/2024 KARLA GUNN Tinea unguium B35.1 ; Pain in right toe(s) M79.674 ; Pain in left toe(s) M79.675 ; Unspecified atherosclerosis of [place] arteries of extremities, bilateral legs I70.203 ; Xerosis cutis L85.3 and Type 2 diabetes mellitus with diabetic peripheral angiopathy without gangrene E11.51 Assessments Encounter Date Diagnosis (ICD Code) Assessment Notes Treatment Notes Treatment Clinical Notes Section Notes 07/06/2024 Tinea unguium (ICD-10 - B35.1) Aseptic debridement of elongated thickened nails x 10 using sterile nippers, nails were debrided in length and thickness by 30% utilizing a nail nipper without incident. The patient was educated regarding all treatment options that include topical and oral antifungal treatments. I discussed the options of taking a sample of the nail to confirm diagnosis. Nail clippings were not sent for pathology analysis. The patient was educated why and how the fungal infection evolved in their feet and the patient was given information regarding how to prevent further infection. The patient was told to keep feet dry and change socks. The patient was told to be careful with old shoes and excessive sweating. The patient was educated regarding both OTC and prescription treatments. 07/06/2024 Pain in right toe(s) (ICD-10 - M79.674) 07/06/2024 Pain in left toe(s) (ICD-10 - M79.675) 07/06/2024 Unspecified atherosclerosis of [place] arteries of extremities, bilateral legs (ICD-10 - I70.203) Patient educated on risks and aggravating factors of PVD, including conservative treatment options such as a diet and exercise regimen to aid in slowing progression of vascular disease 07/06/2024 Xerosis cutis (ICD-10 - L85.3) The patient was educated regarding proper hydration of their feet/ankles and the patient was given several recommendations for proper creams to protect/hydrate and keep the area healthy. Continue with use of lotion to be applied to feet daily. 07/06/2024 Type 2 diabetes mellitus with diabetic peripheral angiopathy without gangrene (ICD-10 - E11.51) Patient educated on proper diabetic foot care and the importance of tight glycemic control in regards to the prevention of diabetic manifestations and symptomatology in lower extremity. Explained to patient the importance of keeping interdigital spaces dry, not walking bare foot, having supportive shoe gear, using moisturizer to skin on feet daily especially in winter months, and checking feet daily for any new lesions or areas suspicious of trauma infection or ulceration. Explained to patient to return to ED if any change in foot health associated with signs of systemic infection including but not limited to nausea, vomiting, fever. Plan Of Treatment Medication Medication Name Sig Start Date Stop Date Notes Clotrimazole-Betamethasone 1-0.05 % 1 application Externally Twice a day 07/06/2024 Treatment Notes Assessment Notes Tinea unguium Aseptic debridement of elongated thickened nails x 10 using sterile nippers, nails were debrided in length and thickness by 30% utilizing a nail nipper without incident. The patient was educated regarding all treatment options that include topical and oral antifungal treatments. I discussed the options of taking a sample of the nail to confirm diagnosis. Nail clippings were not sent for pathology analysis. The patient was educated why and how the fungal infection evolved in their feet and the patient was given information regarding how to prevent further infection. The patient was told to keep feet dry and change socks. The patient was told to be careful with old shoes and excessive sweating. The patient was educated regarding both OTC and prescription treatments. Unspecified atherosclerosis of [place] arteries of extremities, bilateral legs Patient educated on risks and aggravating factors of PVD, including conservative treatment options such as a diet and exercise regimen to aid in slowing progression of vascular disease Xerosis cutis The patient was educ ated regarding proper hydration of their feet/ankles and the patient was given several recommendations for proper creams to protect/hydrate and keep the area healthy. Continue with use of lotion to be applied to feet daily. Type 2 diabetes mellitus wit h diabetic peripheral angiopathy without gangrene Patient educated on proper diabetic foot care and the importance of tight glycemic control in regards to the prevention of diabetic manifestations and symptomatology in lower extremity. Explained to patient the importance of keeping interdigital spaces dry, not walking bare foot, having supportive shoe gear, using moisturizer to skin on feet daily especially in winter months, and checking feet daily for any new lesions or areas suspicious of trauma infection or ulceration. Explained to patient to return to ED if any change in foot health associated with signs of systemic infection including but not limited to nausea, vomiting, fever. Next Appt Details Follow Up: 3 Months, Reason: Provider Name:KARLA GUNN, 09/07/2024 02:10:00 PM, [address] [place], [place], [id number], Progress Notes * OBIE SIMS RDOB:1955 (68 yo M)Acc No.[id number]:07/06/2024 Patient:?OBIE SIMS Provider:?KARLA GUNN :1955???Age:68 Y???Sex:Male Stevenson e:07/06/2024 Address:[address] [place], [place] [id number] Subjective: * Chief Complaints: * ???1. *General care. * HPI: ???HPI:?General care?Patient presents to the office for diabetic foot care. Patient states that their nails are thickened, elongated and painful. Patient states that it is aggravated by shoe gear. Onset is gradual., Patient is taking prescription blood thinners., Date last seen by Dr. Infante was 06/2024., Initials [facility].? * ROS:?General / Constitutional:?Patient denies?weakness.?Respiratory:?Patient denies?chronic cough, shortness of breath, sputum production.?Cardiovascular:?Patient denies?chest pain, history of [place], irregular heartbeat.?Musculoskeletal:?Patient denies?arthritis, joint stiffness.?Peripheral Vascular:?Patient denies?blanching of skin, cold extremities, decreased sensation in extremities.?Skin:?Patient complains of?fungal nails, discoloration, dry skin, nail changes.?Neurologic:?Patient denies?dizziness, gait abnormality, headache.? * Medical History:? * Medications:?Taking glipiZID E 5 MG Oral Tablet ORAL , Notes to Pharmacist: glipizide 5 MG Oral TabletOriginal Medicationglipizide 5 MG Oral Tablet *Reorder from [facility] for eRx and Interaction Alerts*, Taking dofetilide 0.125 MG Oral Capsule [Tikosyn] ORAL , Notes to Pharmacist: dofetilide 0.125 MG Oral Capsule [Tikosyn]Original Medicationdofetilide 0.125 MG Oral Capsule [Tikosyn] *Reorder from [facility] for eRx and Interaction Alerts*, Taking warfarin sodium 2 MG Oral Tablet [Coumadin] ORAL , Notes to Pharmacist: warfarin sodium 2 MG Oral Tablet [Coumadin]Original Medicationwarfarin sodium 2 MG Oral Tablet [Coumadin] *Reorder from [facility] for eRx and Interaction Alerts* Objective: * Vitals:? * Examination: ???Physical Examination: ???Vascular: Dorsalis Pedis pulse noted at 1/4 right foot and 1/4 left foot and Posterior Tibial pulse noted at 1/4 right foot and 1/4 left foot, Capillary refill times noted to be less than three seconds x ten, Temperature gradient noted to be warm to cool to bilateral foot, pedal hair present to bilateral foot and no varicosities are noted Dermatologic: there are no open lesions, no signs of active clinical infection, no erythema noted, no ecchymoses, nails are elongated thickened and dystrophic with subungual debris x ten, diffuse plantar xerosis noted to bilateral foot with no signs of annular scaling noted Musculoskeletal: there is pain to palpation onto nail plate x ten, no calf pain noted bilaterally, arch height noted at 2/5 non-weight bearing bilaterally, first metatarsophalangeal joint range of motion 30 deg non-weight bearing bilaterally Neurology: protective sensation intact to light touch bilateral digits one through five, vibratory sensation intact to first metatarsophalangeal joint bilaterally. 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 Plan: * Treatment: 2.?Unspecified atheroscleros is of [place] arteries of extremities, bilateral legs? Notes: Patient educated on risks and aggravating factors of PVD, including conservative treatment options such as a diet and exercise regimen to aid in slowing progression of vascular disease ?? 3.?Xerosis cutis? Notes: The patient was educated regarding proper hydration of their feet/ankles and the patient was given several recommendations for proper creams to protect/hydrate and keep the area healthy. Continue with use of lotion to be applied to feet daily. ?? 4.?Type 2 diabetes mellitus with diabetic peripheral angiopathy without gangrene? Notes: Patient educated on proper diabetic foot care and the importance of tight glycemic control in regards to the prevention of diabetic manifestations and symptomatology in lower extremity. Explained to patient the importance of keeping interdigital spaces dry, not walking bare foot, having supportive shoe gear, using moisturizer to skin on feet daily especially in winter months, and checking feet daily for any new lesions or areas suspicious of trauma infection or ulceration. Explained to patient to return to ED if any change in foot health associated with signs of systemic infection including but not limited to nausea, vomiting, fever. ?? 5.?Others? Start Clotrimazole-Betamethasone Cream, 1-0.05 %, 1 application, Externally, Twice a day, 1, Refills 2.?? * Procedure Codes:?99906 DEBRI DE NAIL, 6 OR MORE, Modifiers: Q8 * Follow Up:?3 Months * Billing Information: * Visit Code:? * Procedure Codes:? 94424 DEBRIDE NAIL, 6 OR MORE. Modifiers: Q8 * MAINTENANCE TECHNICIAN Sign off status: Completed true * Provider:?KARLA GUNN Date:?07/06/2024 Generated for Katiana watson/Kaitlyn/Mindy on:?09/03/2024 08:26 AM HVAC MAINTENANCE TECHNICIAN History and Physical Notes * HPI (History of Present Illness) Category Sub-Category Detail Notes Category Not es HPI General care Patient presents to the office for diabetic foot care. Patient states that their nails are thickened, elongated and painful. Patient states that it is aggravated by shoe gear. Onset is gradual., Patient is taking prescription blood thinners., Date last seen by Dr. Infante was 06/2024., Initials [facility] Examination Category Sub-Category Detail Notes Category Not es Physical Examination Vascular: Dorsalis Pedis pulse noted at 1/4 right foot and 1/4 left foot and Posterior Tibial pulse noted at 1/4 right foot and 1/4 left foot, Capillary refill times noted to be less than three seconds x ten, Temperature gradient noted to be warm to cool to bilateral foot, pedal hair present to bilateral foot and no varicosities are noted Dermatologic: there are no open lesions, no signs of active clinical infection, no erythema noted, no ecchymoses, nails are elongated thickened and dystrophic with subungual debris x ten, diffuse plantar xerosis noted to bilateral foot with no signs of annular scaling noted Musculoskeletal: there is pain to palpation onto nail plate x ten, no calf pain noted bilaterally, arch height noted at 2/5 non-weight bearing bilaterally, first metatarsophalangeal joint range of motion 30 deg non-weight bearing bilaterally Neurology: protective sensation intact to light touch bilateral digits one through five, vibratory sensation intact to first metatarsophalangeal joint bilaterally
--- OUTSIDE RECORDS SUMMARY | 2024-09-03 20:09 | XMS_ITS | Clinical Summary ---
Author Organization Unknown Care Team Providers Care Clinical Account Liaison Name Role Phone MIRIAM LANDRY, MASHA Unavailable Unavailable ARUN RN, PAUL Unavailable Unavailable SATISH RN, ELIAS Unavailable Unavailable Payers Payer Name Policy Type Policy Number Effective Date Expira tion Date MEDICARE - [place] - PDGM [id number] Problems Condition Name Condition Details Condition Category Status Onset Date Resolution Date Last Treatment Date Treating Clinician Comments VENOUS INSUFFICIENC Y (CHRONIC) (PERIPHERAL) Active 05-06 00:00: 00 ENCOUNTER FOR CHANGE OR REMOVAL OF NONSURG WOUND DRESSING Active 05-06 00:00: 00 TYPE 2 DIABETES W DIABETIC PERIPHERAL ANGIOPATH W/O GANGRENE Active 05-06 00:00: 00 NON-PRS CHR ULCER OTH PRT L LOW LEG LIMITED TO BRKDWN SKIN Active 05-06 00:00: 00 HYP HRT AND CHR KDNY DIS W HRT FAIL AND STG 1-4/UNSP CHR KDNY Active 05-06 00:00: 00 CHRONIC COMBINED SYSTOLIC AND DIASTOLIC HRT FAIL Active 05-06 00:00: 00 TYPE 2 DIABETES MELLITUS W DIABETIC CHRONIC KIDNEY DISEASE Active 05-06 00:00: 00 CHRONIC KIDNEY DISEASE, STAGE 3 UNSPECIFIED Active 05-06 00:00: 00 ANEMIA IN CHRONIC KIDNEY DISEASE Active 05-06 00:00: 00 CHRONIC ATRIAL FIBRILLATION , UNSPECIFIED Active 05-06 00:00: 00 OLD MYOCARDIAL INFARCTION Active 05-06 00:00: 00 GASTRO-ESOPH AGEAL REFLUX DISEASE WITHOUT ESOPHAGITIS Active 05-06 00:00: 00 CHRONIC OBSTRUCTIVE PULMONARY DISEASE, UNSPECIFIED Active 05-06 00:00: 00 TYPE 2 DIABETES MELLITUS WITH DIABETIC NEUROPATHY, UNSP Active 05-06 00:00: 00 DEPRESSION, UNSPECIFIED Active 05-06 00:00: 00 SPINAL STENOSIS, CERVICAL REGION Active 05-06 00:00: 00 PULMONARY HYPERTENSION , UNSPECIFIED Active 05-06 00:00: 00 NONRHEUMATIC AORTIC (VALVE) STENOSIS Active 05-06 00:00: 00 ATHSCL HEART DISEASE OF [place] CORONARY ARTERY W/O ANG PCTRS Active 05-06 00:00: 00 MILD INTERMITTENT ASTHMA, UNCOMPLICATE D Active 05-06 00:00: 00 OCCLUSION AND STENOSIS OF BILATERAL CAROTID ARTERIES Active 05-06 00:00: 00 RESTLESS LEGS SYNDROME Active 05-06 00:00: 00 VITAMIN D DEFICIENCY, UNSPECIFIED Active 05-06 00:00: 00 ANXIETY DISORDER, UNSPECIFIED Active 05-06 00:00: 00 UNSPECIFIED OSTEOARTHRIT IS, UNSPECIFIED SITE Active 05-06 00:00: 00 MIXED HYPERLIPIDEM IA Active 05-06 00:00: 00 LEFT BUNDLE-BRANC H BLOCK, UNSPECIFIED Active 05-06 00:00: 00 MULTIPLE FX OF RIBS, RIGHT SIDE, SUBS FOR FX W ROUTN HEAL Active 05-06 00:00: 00 PRESENCE OF PROSTHETIC HEART VALVE Active 05-06 00:00: 00 PERSONAL HISTORY OF NICOTINE DEPENDENCE Active 05-06 00:00: 00 PRSNL HX OF TIA (TIA), AND CEREB INFRC W/O RESID DEFICITS Active 05-06 00:00: 00 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 Active 05-06 00:00: 00 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 TEACHER (CURRENT) USE OF ORAL HYPOGLYCEMIC DRUGS Active 05-06 00:00: 00 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 TEACHER (CURRENT) USE OF INSULIN Active 05-06 00:00: 00 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 TEACHER (CURRENT) USE OF OPIATE ANALGESIC Active 05-06 00:00: 00 DEPENDENCE ON SUPPLEMENTAL OXYGEN Active 05-06 00:00: 00 INTERMEDIATE (CURRENT) USE OF ANTICOAGULAN TS Active 05-06 00:00: 00 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 Ordering Clinician Indication Dosage Frequency Signature (SIG) Comments Components cephalexin 500 mg capsule 01-08 00:00: 00 01-13 23:59 :00 No [id number] 1 capsule 2 TIMES DAILY 1 capsule 2 TIMES DAILY (route: oral) Med Classific ation: Anti-Infe ctive Agents doxycycline hyclate 100 mg tablet 01-08 00:00: 00 01-13 23:59 :00 No [id number] 1 tablet 2 TIMES DAILY 1 tablet 2 TIMES DAILY (route: oral) Med Classific ation: Anti-Infe ctive Agents hydrocodone 7.5 mg-acetamin ophen 325 mg tablet 12-25 00:00: 00 02-20 23:59 :00 No [id number] 2 tablet 2 TIMES DAILY 2 tablet 2 TIMES DAILY (route: oral) Med Classific ation: Analgesic , Anti-infl ammatory or Antipyret ic Trelegy Ellipta 100 mcg-62.5 mcg-25 mcg powder for inhalation 12-23 00:00: 00 Yes [id number] 1 inhalat ion DAILY 1 inhalation DAILY (route: inhalation ) Med Classific ation: Respirato ry Therapy Agents Ventolin HFA 90 mcg/actuati on aerosol inhaler 12-23 00:00: 00 Yes [id number] 2 puff 4 TIMES DAILY 2 puff 4 TIMES DAILY (route: inhalation ) Med Classific ation: Respirato ry Therapy Agents gabapentin 400 mg capsule 12-14 00:00: 00 Yes [id number] Per instruc tions 2 TIMES DAILY Per instructio ns 2 TIMES DAILY (route: oral) Med Classific ation: Central Nervous System Agents allopurinol 300 mg tablet 01-09 00:00: 00 Yes [id number] 1 tablet DAILY 1 tablet DAILY (route: oral) Med Classific ation: Gout and Hyperuric emia Therapy aspirin 81 mg chewable tablet 01-09 00:00: 00 Yes [id number] 1 tablet DAILY 1 tablet DAILY (route: oral) Med Classific ation: Hematolog ical Agents atorvastati n 80 mg tablet 01-09 00:00: 00 Yes [id number] 1 tablet BEDTIME 1 tablet BEDTIME (route: oral) Med Classific ation: Cardiovas cular Therapy Agents BiDil 20 mg-37.5 mg tablet 01-09 00:00: 00 Yes [id number] 1 tablet DAILY 1 tablet DAILY (route: oral) Med Classific ation: Cardiovas cular Therapy Agents carvedilol 3.125 mg tablet 01-09 00:00: 00 Yes [id number] 1 tablet 2 TIMES DAILY 1 tablet 2 TIMES DAILY (route: oral) Med Classific ation: Cardiovas cular Therapy Agents docusate sodium 100 mg capsule 01-09 00:00: 00 Yes [id number] 1 capsule DAILY 1 capsule DAILY (route: oral) Med Classific ation: Gastroint estinal Therapy Agents furosemide 80 mg tablet 01-09 00:00: 00 02-20 23:59 :00 No [id number] 1 tablet DAILY 1 tablet DAILY (route: oral) Med Classific ation: Cardiovas cular Therapy Agents glipizide ER 10 mg tablet, extended release 24 hr 01-09 00:00: 00 02-20 23:59 :00 No [id number] 1 tablet DAILY 1 tablet DAILY (route: oral) Med Classific ation: Endocrine hydroxyzine HCl 25 mg tablet 01-09 00:00: 00 Yes [id number] 1 tablet EVERY 8 HOURS 1 tablet EVERY 8 HOURS (route: oral) Med Classific ation: Central Nervous System Agents Jardiance 25 mg tablet 01-09 00:00: 00 Yes [id number] 1 tablet DAILY 1 tablet DAILY (route: oral) Med Classific ation: Endocrine methocarbam ol 500 mg tablet 01-09 00:00: 00 02-20 23:59 :00 No [id number] 1 tablet 2 TIMES DAILY 1 tablet 2 TIMES DAILY (route: oral) Med Classific ation: Locomotor System mupirocin 2 % topical ointment 01-09 00:00: 00 Yes [id number] Per instruc tions 2 TIMES DAILY Per instructio ns 2 TIMES DAILY (route: topical) Med Classific ation: Dermatolo gical Protonix 40 mg tablet,brandon yed release 01-09 00:00: 00 Yes [id number] 1 tablet DAILY 1 tablet DAILY (route: oral) Med Classific ation: Gastroint estinal Therapy Agents ropinirole 4 mg tablet 01-09 00:00: 00 Yes [id number] 1 tablet BEDTIME 1 tablet BEDTIME (route: oral) Med Classific ation: Central Nervous System Agents sertraline 50 mg tablet 01-09 00:00: 00 Yes [id number] 1 tablet DAILY 1 tablet DAILY (route: oral) Med Classific ation: Central Nervous System Agents spironolact one 25 mg tablet 01-09 00:00: 00 Yes [id number] 1 tablet DAILY 1 tablet DAILY (route: oral) Med Classific ation: Cardiovas cular Therapy Agents trazodone 100 mg tablet 01-09 00:00: 00 Yes [id number] 2 tablet BEDTIME 2 tablet BEDTIME (route: oral) Med Classific ation: Central Nervous System Agents warfarin 6 mg tablet 01-09 00:00: 00 01-19 23:59 :00 No [id number] 1 tablet DAILY 1 tablet DAILY (route: oral) Med Classific ation: Hematolog ical Agents insulin lispro (U-100) 100 unit/mL subcutaneou s pen 01-09 00:00: 00 Yes [id number] Per instruc tions DIRECTED Per instructio ns DIRECTED (route: subcutaneo us) Med Classific ation: Endocrine O2 - OXYGEN 01-09 00:00: 00 Yes [id number] 2 Liter NEEDED 2 Liter A S NEEDED (route: Oxygen) Med Classific ation: Medical Oxygen warfarin 5 mg tablet 01-11 00:00: 00 01-19 23:59 :00 No [id number] 5 mg DAILY 5 mg DAILY (route: oral) Alternate Route: NONE. Med Classific ation: Hematolog ical Agents warfarin 3 mg tablet 6-05 00:00: 00 01-29 23:59 :00 No [id number] 1 tablet DAILY 1 tablet DAILY (route: oral) Med Classific ation: Hematolog ical Agents warfarin 4 mg tablet 6-05 00:00: 00 01-29 23:59 :00 No [id number] 1 tablet DAILY 1 tablet DAILY (route: oral) Med Classific ation: Hematolog ical Agents warfarin 3 mg tablet 610 00:00: 00 01-31 23:59 :00 No [id number] 2 tablet DAILY 2 tablet DAILY (route: oral) Med Classific ation: Hematolog ical Agents warfarin 1 mg tablet 613 00:00: 00 02-23 23:59 :00 No [id number] .5 tablet EVERY PM .5 tablet EVERY PM (route: oral) Med Classific ation: Hematolog ical Agents warfarin 5 mg tablet 613 00:00: 00 02-05 23:59 :00 No [id number] 1 tablet EVERY PM 1 tablet EVERY PM (route: oral) Med Classific ation: Hematolog ical Agents warfarin 5 mg tablet 16 00:00: 00 02-23 23:59 :00 No [id number] 1 tablet EVERY PM 1 tablet EVERY PM (route: oral) Med Classific ation: Hematolog ical Agents furosemide 40 mg tablet 02-20 00:00: 00 Yes [id number] 1 tablet DAILY 1 tablet DAILY (route: oral) Med Classific ation: Cardiovas cular Therapy Agents glipizide 5 mg tablet 02-20 00:00: 00 Yes [id number] 1 tablet DAILY 1 tablet DAILY (route: oral) Med Classific ation: Endocrine hydrocodone 7.5 mg-acetamin ophen 325 mg tablet 02-20 00:00: 00 Yes [id number] 1 tablet EVERY 8 HOURS 1 tablet EVERY 8 HOURS (route: oral) Med Classific ation: Analgesic , Anti-infl ammatory or Antipyret ic Levemir FlexPen 100 unit/mL (3 mL) solution subcutaneou s insulin pen 02-20 00:00: 00 Yes [id number] 15 unit BEDTIME 15 unit BEDTIME (route: subcutaneo us) Med Classific ation: Endocrine Lidocaine Pain Relief 4 % topical patch 02-20 00:00: 00 Yes [id number] 1 adhesiv e patch, medicat ed DAILY 1 adhesive patch, medicated DAILY (route: topical) Med Classific ation: Dermatolo gical methocarbam ol 500 mg tablet 02-20 00:00: 00 Yes [id number] 1 tablet 3 TIMES DAILY 1 tablet 3 TIMES DAILY (route: oral) Med Classific ation: Locomotor System metolazone 2.5 mg tablet 02-20 00:00: 00 Yes [id number] 1 tablet 2 TIMES A WEEK 1 tablet 2 TIMES A WEEK (route: oral) Med Classific ation: Cardiovas cular Therapy Agents warfarin 1 mg tablet 02-20 00:00: 00 02-25 23:59 :00 No [id number] 1 tablet DAILY 1 tablet DAILY (route: oral) Med Classific ation: Hematolog ical Agents warfarin 6 mg tablet 02-23 00:00: 00 02-25 23:59 :00 No [id number] 1 tablet DAILY 1 tablet DAILY (route: oral) Med Classific ation: Hematolog ical Agents warfarin 1 mg tablet 02-25 00:00: 00 03-08 23:59 :00 No [id number] 3 tablet DAILY 3 tablet DAILY (route: oral) Med Classific ation: Hematolog ical Agents warfarin 5 mg tablet 02-25 00:00: 00 03-08 23:59 :00 No [id number] 1 tablet DAILY 1 tablet DAILY (route: oral) Med Classific ation: Hematolog ical Agents warfarin 1 mg tablet 03-09 00:00: 00 03-29 23:59 :00 No [id number] 1 tablet EVERY OTHER DAY 1 tablet EVERY OTHER DAY (route: oral) Med Classific ation: Hematolog ical Agents warfarin 3 mg tablet 03-10 00:00: 00 03-26 23:59 :00 No [id number] 1 tablet EVERY OTHER DAY 1 tablet EVERY OTHER DAY (route: oral) Med Classific ation: Hematolog ical Agents warfarin 5 mg tablet 03-10 00:00: 00 03-26 23:59 :00 No [id number] 1 tablet EVERY OTHER DAY 1 tablet EVERY OTHER DAY (route: oral) Med Classific ation: Hematolog ical Agents warfarin 6 mg tablet 03-09 00:00: 00 03-29 23:59 :00 No [id number] 1 tablet EVERY OTHER DAY 1 tablet EVERY OTHER DAY (route: oral) Med Classific ation: Hematolog ical Agents A and D (liam, pet) topical ointment 03-12 00:00: 00 Yes [id number] 1 inch DAILY 1 inch DAILY (route: topical) Med Classific ation: Dermatolo gical Benadryl 25 mg capsule 03-12 00:00: 00 Yes [id number] 1-2 capsule EVERY 4 HOURS 1-2 capsule EVERY 4 HOURS (route: oral) Alternate Route: NONE. Med Classific ation: Respirato ry Therapy Agents warfarin 6 mg tablet 03-29 00:00: 00 05-06 23:59 :00 No [id number] 1 tablet DAILY 1 tablet DAILY (route: oral) Med Classific ation: Hematolog ical Agents warfarin 1 mg tablet 03-29 00:00: 00 04-27 23:59 :00 No [id number] 1 tablet DAILY 1 tablet DAILY (route: oral) Med Classific ation: Hematolog ical Agents dicloxacill in 250 mg capsule 03-30 00:00: 00 Yes [id number] 1 capsule EVERY 6 HOURS 1 capsule EVERY 6 HOURS (route: oral) Med Classific ation: Anti-Infe ctive Agents triamcinolo ne acetonide 0.1 % topical cream 04-02 00:00: 00 Yes [id number] 1 inch DAILY 1 inch DAILY (route: topical) Med Classific ation: Dermatolo gical warfarin 1 mg tablet 04-28 00:00: 00 05-06 23:59 :00 No [id number] 0.5 tablet DAILY 0.5 tablet DAILY (route: oral) Med Classific ation: Hematolog ical Agents Lovenox 100 mg/mL subcutaneou s syringe 05-10 00:00: 00 05-17 23:59 :00 No [id number] 1 mL EVERY 12 HOURS 1 mL EVERY 12 HOURS (route: subcutaneo us) Med Classific ation: Hematolog ical Agents Senna Lax 8.6 mg tablet 05-09 00:00: 00 Yes [id number] 1 tablet DAILY 1 tablet DAILY (route: oral) Med Classific ation: Gastroint estinal Therapy Agents tizanidine 2 mg capsule 05-09 00:00: 00 Yes [id number] 1 capsule EVERY 8 HOURS 1 capsule EVERY 8 HOURS (route: oral) Med Classific ation: Locomotor System warfarin 1 mg tablet 05-10 00:00: 00 05-14 23:59 :00 No [id number] 1 tablet DAILY 1 tablet DAILY (route: oral) Med Classific ation: Hematolog ical Agents warfarin 6 mg tablet 05-10 00:00: 00 05-14 23:59 :00 No [id number] 1 tablet DAILY 1 tablet DAILY (route: oral) Med Classific ation: Hematolog ical Agents warfarin 10 mg tablet 05-14 00:00: 00 05-17 23:59 :00 No [id number] 1 tablet DAILY 1 tablet DAILY (route: oral) Med Classific ation: Hematolog ical Agents warfarin 1 mg tablet 05-17 00:00: 00 07-05 23:59 :00 No [id number] 2 tablet DAILY 2 tablet DAILY (route: oral) Med Classific ation: Hematolog ical Agents warfarin 6 mg tablet 05-17 00:00: 00 07-05 23:59 :00 No [id number] 1 tablet DAILY 1 tablet DAILY (route: oral) Med Classific ation: Hematolog ical Agents cephalexin 500 mg capsule 05-18 00:00: 00 05-24 23:59 :00 No [id number] 1 capsule 3 TIMES DAILY 1 capsule 3 TIMES DAILY (route: oral) Med Classific ation: Anti-Infe ctive Agents warfarin 3 mg tablet 2022-08 0-11 00:00: 00 06-14 23:59 :00 No [id number] 1 tablet DAILY 1 tablet DAILY (route: oral) Med Classific ation: Hematolog ical Agents warfarin 6 mg tablet 2022-08 0-11 00:00: 00 06-14 23:59 :00 No [id number] 1 tablet DAILY 1 tablet DAILY (route: oral) Med Classific ation: Hematolog ical Agents tizanidine 4 mg tablet 2022-08 0 00:00: 00 Yes [id number] 1 tablet 3 TIMES DAILY 1 tablet 3 TIMES DAILY (route: oral) Med Classific ation: Locomotor System warfarin 6 mg tablet 2022-08 1-15 00:00: 00 Yes [id number] 1 tablet DAILY 1 tablet DAILY (route: oral) Med Classific ation: Hematolog ical Agents Immunizations Ordered Immunization Name Filled Immunization Name Date Status Comments Refusal Reason INFLUENZA, LAIV (LIVE VIRUS) 2022-05-18 00:00:00 PNEUMOCOCCAL (PPV), PPV 2018-04-23 00:00:00 Vital Signs Vital Name Observation Time Observation Value Commen ts Temperature 2023-07-05 10:55:00.000 97.3 [degF] Temperature 2023-06-30 11:11:00.000 97.4 [degF] Temperature 2023-06-24 13:39:00.000 98.2 [degF] Temperature 2023-06-21 13:20:00.000 98.2 [degF] Temperature 2023-06-17 10:25:00.000 98.3 [degF] Temperature 2023-06-14 09:18:00.000 97.8 [degF] Temperature 2023-06-07 10:53:00.000 98.4 [degF] Temperature 2023-06-04 16:12:00.000 97.8 [degF] Temperature 2023-06-01 13:22:00.000 98.1 [degF] Temperature 2023-05-25 12:31:00.000 98.5 [degF] Temperature 2023-05-20 12:19:00.000 97.8 [degF] Temperature 2023-05-17 11:25:00.000 98.3 [degF] Temperature 2023-05-14 12:09:00.000 97.7 [degF] Temperature 2023-05-12 10:21:00.000 97.7 [degF] Temperature 2023-05-10 11:54:00.000 98.1 [degF] Pulse 2023-07-05 10:55:00.000 82 /min Pulse 2023-06-30 11:11:00.000 64 /min Pulse 2023-06-24 13:39:00.000 62 /min Pulse 2023-06-21 13:20:00.000 80 /min Pulse 2023-06-17 10:25:00.000 82 /min Pulse 2023-06-14 09:18:00.000 78 /min Pulse 2023-06-07 10:53:00.000 78 /min Pulse 2023-06-04 16:12:00.000 82 /min Pulse 2023-06-01 13:22:00.000 68 /min Pulse 2023-05-25 12:31:00.000 88 /min Pulse 2023-05-20 12:19:00.000 74 /min Pulse 2023-05-17 11:25:00.000 82 /min Pulse 2023-05-14 12:09:00.000 100 /min Pulse 2023-05-12 10:21:00.000 66 /min Pulse 2023-05-10 11:54:00.000 82 /min O2 Saturation (%) 2023-07-05 10:55:00.000 100 % O2 Saturation (%) 2023-06-30 11:11:00.000 96 % O2 Saturation (%) 2023-06-24 13:39:00.000 100 % O2 Saturation (%) 2023-06-21 13:20:00.000 98 % O2 Saturation (%) 2023-06-17 10:25:00.000 92 % O2 Saturation (%) 2023-06-14 09:18:00.000 99 % O2 Saturation (%) 2023-06-07 10:53:00.000 98 % O2 Saturation (%) 2023-06-04 16:12:00.000 95 % O2 Saturation (%) 2023-06-01 13:22:00.000 97 % O2 Saturation (%) 2023-05-25 12:31:00.000 96 % O2 Saturation (%) 2023-05-20 12:19:00.000 100 % O2 Saturation (%) 2023-05-17 11:25:00.000 97 % O2 Saturation (%) 2023-05-14 12:09:00.000 97 % O2 Saturation (%) 2023-05-12 10:21:00.000 97 % O2 Saturation (%) 2023-05-10 11:54:00.000 94 % Respirations 2023-07-05 10:55:00.000 18 /min Respirations 2023-06-30 11:11:00.000 20 /min Respirations 2023-06-24 13:39:00.000 20 /min Respirations 2023-06-21 13:20:00.000 18 /min Respirations 2023-06-17 10:25:00.000 20 /min Respirations 2023-06-14 09:18:00.000 18 /min Respirations 2023-06-07 10:53:00.000 18 /min Respirations 2023-06-04 16:12:00.000 16 /min Respirations 2023-06-01 13:22:00.000 20 /min Respirations 2023-05-25 12:31:00.000 18 /min Respirations 2023-05-20 12:19:00.000 20 /min Respirations 2023-05-17 11:25:00.000 20 /min Respirations 2023-05-14 12:09:00.000 20 /min Respirations 2023-05-12 10:21:00.000 18 /min Respirations 2023-05-10 11:54:00.000 18 /min Weight (lbs) 2023-07-05 10:59:00.000 216 [lb_av] Weight (lbs) 2023-06-30 11:11:00.000 216 [lb_av] Weight (lbs) 2023-06-24 13:39:00.000 219.2 [lb_av] Weight (lbs) 2023-06-21 13:22:00.000 216 [lb_av] Weight (lbs) 2023-06-17 10:27:00.000 217 [lb_av] Weight (lbs) 2023-06-14 09:27:00.000 217 [lb_av] Weight (lbs) 2023-06-07 10:57:00.000 218 [lb_av] Weight (lbs) 2023-06-04 16:13:00.000 218 [lb_av] Weight (lbs) 2023-06-01 13:23:00.000 217 [lb_av] Weight (lbs) 2023-05-25 12:33:00.000 218 [lb_av] Weight (lbs) 2023-05-20 12:24:00.000 217 [lb_av] Weight (lbs) 2023-05-17 11:28:00.000 216 [lb_av] Weight (lbs) 2023-05-14 12:15:00.000 216.8 [lb_av] Weight (lbs) 2023-05-12 10:27:00.000 217.2 [lb_av] Weight (lbs) 2023-05-10 11:55:00.000 220 [lb_av] Systolic Blood Pressure 2023-07-05 10:55:00.000 116 mm [Hg] Systolic Blood Pressure 2023-06-30 11:11:00.000 136 mm [Hg] Systolic Blood Pressure 2023-06-24 13:39:00.000 110 mm [Hg] Systolic Blood Pressure 2023-06-21 13:20:00.000 126 mm [Hg] Systolic Blood Pressure 2023-06-17 10:25:00.000 118 mm [Hg] Systolic Blood Pressure 2023-06-14 09:18:00.000 128 mm [Hg] Systolic Blood Pressure 2023-06-07 10:53:00.000 114 mm [Hg] Systolic Blood Pressure 2023-06-04 16:12:00.000 130 mm [Hg] Systolic Blood Pressure 2023-06-01 13:22:00.000 118 mm [Hg] Systolic Blood Pressure 2023-05-25 12:31:00.000 118 mm [Hg] Systolic Blood Pressure 2023-05-20 12:19:00.000 128 mm [Hg] Systolic Blood Pressure 2023-05-17 11:25:00.000 122 mm [Hg] Systolic Blood Pressure 2023-05-14 12:09:00.000 122 mm [Hg] Systolic Blood Pressure 2023-05-12 10:21:00.000 112 mm [Hg] Systolic Blood Pressure 2023-05-10 11:54:00.000 132 mm [Hg] Diastolic Blood Pressure 2023-07-05 10:55:00.000 72 mm [Hg] Diastolic Blood Pressure 2023-06-30 11:11:00.000 78 mm [Hg] Diastolic Blood Pressure 2023-06-24 13:39:00.000 62 mm [Hg] Diastolic Blood Pressure 2023-06-21 13:20:00.000 72 mm [Hg] Diastolic Blood Pressure 2023-06-17 10:25:00.000 72 mm [Hg] Diastolic Blood Pressure 2023-06-14 09:18:00.000 62 mm [Hg] Diastolic Blood Pressure 2023-06-07 10:53:00.000 68 mm [Hg] Diastolic Blood Pressure 2023-06-04 16:12:00.000 62 mm [Hg] Diastolic Blood Pressure 2023-06-01 13:22:00.000 72 mm [Hg] Diastolic Blood Pressure 2023-05-25 12:31:00.000 62 mm [Hg] Diastolic Blood Pressure 2023-05-20 12:19:00.000 72 mm [Hg] Diastolic Blood Pressure 2023-05-17 11:25:00.000 64 mm [Hg] Diastolic Blood Pressure 2023-05-14 12:09:00.000 68 mm [Hg] Diastolic Blood Pressure 2023-05-12 10:21:00.000 68 mm [Hg] Diastolic Blood Pressure 2023-05-10 11:54:00.000 64 mm [Hg] Plan of Treatment Planned Activity Planned Date Details Comments Future Scheduled Test SKILLED NU RSE TO EVALUATE PATIENT, IDENTIFY PRIMARY AND CO-MORBID CONDITIONS CODED PER CODING GUIDELINES, AND DEVELOP PATIENT SPECIFIC PLAN OF CARE THAT INCLUDES PATIENT GOAL FOR HOME HEALTH. [code = SKILLED NURSE TO EVALUATE PATIENT, IDENTIFY PRIMARY AND CO-MORBID CONDITIONS CODED PER CODING GUIDELINES, AND DEVELOP PATIENT SPECIFIC PLAN OF CARE THAT INCLUDES PATIENT GOAL FOR HOME HEALTH.] Future Scheduled Test SKILLED NU RSE TO REVIEW PATIENT MEDICATIONS. INSTRUCT PATIENT/CAREGIVER ON MONITORING OF EFFECTIVENESS, ADVERSE DRUG REACTIONS, SIDE EFFECTS OF ALL MEDICATIONS (PRESCRIPTION/-OTC), AND HOW AND WHEN TO REPORT PROBLEMS. [code = SKILLED NURSE TO REVIEW PATIENT MEDICATIONS. INSTRUCT PATIENT/CAREGIVER ON MONITORING OF EFFECTIVENESS, ADVERSE DRUG REACTIONS, SIDE EFFECTS OF ALL MEDICATIONS (PRESCRIPTION/-OTC), AND HOW AND WHEN TO REPORT PROBLEMS.] Future Scheduled Test SKILLED NU RSE TO ASSESS ANXIETY AND PROVIDE ASSISTANCE TO PATIENT FOR UNDERSTANDING AND MANAGEMENT OF FEELINGS. [code = SKILLED NURSE TO ASSESS ANXIETY AND PROVIDE ASSISTANCE TO PATIENT FOR UNDERSTANDING AND MANAGEMENT OF FEELINGS.] Future Scheduled Test OXYGEN VIA NASAL CANNULA @ 2 LITERS PRN. SKILLED NURSE FOR O/A AND SKILLED TEACHING OF SAFE OXYGEN USE IN THE HOME. [code = OXYGEN VIA NASAL CANNULA @ 2 LITERS PRN. SKILLED NURSE FOR O/A AND SKILLED TEACHING OF SAFE OXYGEN USE IN THE HOME.] Future Scheduled Test SKILLED NU RSE FOR INSTRUCTION/ REINFORCEMENT OF NEEDS RELATED TO NUTRITION/HYDRATION. [code = SKILLED NURSE FOR INSTRUCTION/ REINFORCEMENT OF NEEDS RELATED TO NUTRITION/HYDRATION.] Future Scheduled Test SKILLED NU RSE FOR O/A, TEACHING AND MANAGEMENT CKD STAGE 3 FOR EARLY IDENTIFICATION OF EXACERBATION OF DISEASE PROCESS [code = SKILLED NURSE FOR O/A, TEACHING AND MANAGEMENT CKD STAGE 3 FOR EARLY IDENTIFICATION OF EXACERBATION OF DISEASE PROCESS] Future Scheduled Test SKILLED NU RSE FOR O/A RELATED TO SIGNS AND SYMPTOMS OF INFECTION AND TO PROVIDE TEACHING REGARDING INFECTION CONTROL MEASURES. [code = SKILLED NURSE FOR O/A RELATED TO SIGNS AND SYMPTOMS OF INFECTION AND TO PROVIDE TEACHING REGARDING INFECTION CONTROL MEASURES.] Future Scheduled Test NEED FOR S KILLED TEACHING AND INTERVENTION RELATED TO VENOUS STASIS ULCER TO BILATERAL LOWER EXTREMITIES SKILLED NURSE OR TRAINED PATIENT/CAREGIVER TO PERFORM WOUND CARE USING ASEPTIC TECHNIQUE, CLEANSE/IRRIGATE WITH SOAP AND WATER, PAT DRY WITH GAUZE, APPLY TRIAMCINOLONE ACETONIDE CREAM TO BOTH LEGS. WOUND CARE TO BE PERFORMED EVERY DAY. 1-2 PRN SKILLED NURSE VISITS FOR WOUND CARE DUE TO COMPLICATIONS. SKILLED NURSE TO OBTAIN WOUND CULTURE PRN S/S OF INFECTION. WOUND CARE WILL BE PERFORMED BY TRAINED CAREGIVER ON DAYS WHEN SKILLED NURSE IS NOT SCHEDULED FOR A VISIT. DISCONTINUE WOUND CARE/SUPPLIES ONCE WOUND IS HEALED. [code = NEED FOR SKILLED TEACHING AND INTERVENTION RELATED TO VENOUS STASIS ULCER TO BILATERAL LOWER EXTREMITIES SKILLED NURSE OR TRAINED PATIENT/CAREGIVER TO PERFORM WOUND CARE USING ASEPTIC TECHNIQUE, CLEANSE/IRRIGATE WITH SOAP AND WATER, PAT DRY WITH GAUZE, APPLY TRIAMCINOLONE ACETONIDE CREAM TO BOTH LEGS. WOUND CARE TO BE PERFORMED EVERY DAY. 1-2 PRN SKILLED NURSE VISITS FOR WOUND CARE DUE TO COMPLICATIONS. SKILLED NURSE TO OBTAIN WOUND CULTURE PRN S/S OF INFECTION. WOUND CARE WILL BE PERFORMED BY TRAINED CAREGIVER ON DAYS WHEN SKILLED NURSE IS NOT SCHEDULED FOR A VISIT. DISCONTINUE WOUND CARE/SUPPLIES ONCE WOUND IS HEALED.] Future Scheduled Test SKILLED NU RSE FOR O/A OF SELF-CARE DEFICITS AND TO PROVIDE TEACHING RELATED TO SAFE PROVISION OF ADLS. [code = SKILLED NURSE FOR O/A OF SELF-CARE DEFICITS AND TO PROVIDE TEACHING RELATED TO SAFE PROVISION OF ADLS.] Future Scheduled Test SKILLED NU RSE TO PERFORM AND RECORD BLOOD SUGAR READING PRN FOR SIGNS AND SYMPTOMS OF HYPO/HYPERGLYCEMIA. [code = SKILLED NURSE TO PERFORM AND RECORD BLOOD SUGAR READING PRN FOR SIGNS AND SYMPTOMS OF HYPO/HYPERGLYCEMIA.] Future Scheduled Test SKILLED NU RSE FOR O/A AND SKILLED TEACHING IN MANAGEMENT OF CHRONIC VENOUS INSUFFICIENCY/DIABETIC ANGIOPATHY. [code = SKILLED NURSE FOR O/A AND SKILLED TEACHING IN MANAGEMENT OF CHRONIC VENOUS INSUFFICIENCY/DIABETIC ANGIOPATHY.] Future Scheduled Test SKILLED NU RSE FOR MONITORING, O/A AND TEACHING RELATED TO MANAGEMENT OF ANTICOAGULATION THERAPY INCLUDING DIET, MEDICATION SIDE EFFECTS, SAFETY MEASURES TO PREVENT INJURY, AND S/S TO REPORT. PATIENT HOLDING COUMADIN UNTIL 05/10/23. AWAITING FURTHER INR ORDERS AT THIS TIME. [code = SKILLED NURSE FOR MONITORING, O/A AND TEACHING RELATED TO MANAGEMENT OF ANTICOAGULATION THERAPY INCLUDING DIET, MEDICATION SIDE EFFECTS, SAFETY MEASURES TO PREVENT INJURY, AND S/S TO REPORT. PATIENT HOLDING COUMADIN UNTIL 05/10/23. AWAITING FURTHER INR ORDERS AT THIS TIME.] Future Scheduled Test INSTRUCTED PATIENT/CAREGIVER ON SIGNS AND SYMPTOMS, RISK FACTORS, COMPLICATIONS, AND MANAGEMENT OF ATRIAL FIBRILLATION. [code = INSTRUCTED PATIENT/CAREGIVER ON SIGNS AND SYMPTOMS, RISK FACTORS, COMPLICATIONS, AND MANAGEMENT OF ATRIAL FIBRILLATION.] Future Scheduled Test SKILLED NU RSE TO PROVIDE TEACHING ON SIGNS AND SYMPTOMS AND MANAGEMENT OF HYPERTENSION. [code = SKILLED NURSE TO PROVIDE TEACHING ON SIGNS AND SYMPTOMS AND MANAGEMENT OF HYPERTENSION.] Future Scheduled Test SKILLED NU RSE TO INSTRUCT PATIENT/CAREGIVER ON COPD TO INCLUDE USE OF [facility] FOR TEACHING AND SELF-MANAGEMENT RELATED TO COPD DISEASE PROCESS, SIGNS AND SYMPTOMS, AND COMPLICATIONS. [code = SKILLED NURSE TO INSTRUCT PATIENT/CAREGIVER ON COPD TO INCLUDE USE OF [facility] FOR TEACHING AND SELF-MANAGEMENT RELATED TO COPD DISEASE PROCESS, SIGNS AND SYMPTOMS, AND COMPLICATIONS.] Future Scheduled Test SKILLED NU RSE FOR O/A, USE OF [facility] PRO[facility] FOR TEACHING AND SELF-MANAGEMENT RELATED TO HEART FAILURE. INSTRUCT PATIENT/CAREGIVER ON SIGNS AND SYMPTOMS OF EXACERBATION TO REPORT. [code = SKILLED NURSE FOR O/A, USE OF [facility] FOR TEACHING AND SELF-MANAGEMENT RELATED TO HEART FAILURE. INSTRUCT PATIENT/CAREGIVER ON SIGNS AND SYMPTOMS OF EXACERBATION TO REPORT. ] Future Scheduled Test SKILLED NU RSE TO INSTRUCT PATIENT/CAREGIVER ON WARNING SIGNS OF CVA, RISK FACTORS, AND METHODS TO MANAGE INTERMEDIATE EFFECTS OF CVA INCLUDING USE OF [facility] PRO[facility]. [code = SKILLED NURSE TO INSTRUCT PATIENT/CAREGIVER ON WARNING SIGNS OF CVA, RISK FACTORS, AND METHODS TO MANAGE 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 TEACHER EFFECTS OF CVA INCLUDING USE OF [facility].] Future Scheduled Test SKILLED NU RSE FOR O/A AND TEACHING OF DIABETIC MANAGEMENT INCLUDING BLOOD SUGAR MONITORING/USE OF GLUCOMETER, DIABETIC DIET, LOWER EXTREMITY SKIN INSPECTION, PROPER SKIN/FOOT CARE, AND SIGNS AND SYMPTOMS HYPO/HYPERGLYCEMIA TO REPORT. [code = SKILLED NURSE FOR O/A AND TEACHING OF DIABETIC MANAGEMENT INCLUDING BLOOD SUGAR MONITORING/USE OF GLUCOMETER, DIABETIC DIET, LOWER EXTREMITY SKIN INSPECTION, PROPER SKIN/FOOT CARE, AND SIGNS AND SYMPTOMS HYPO/HYPERGLYCEMIA TO REPORT.] Future Scheduled Test SKILLED NU RSE TO INSTRUCT PATIENT/CAREGIVER ON PREVENTION OF SEPSIS, SIGNS AND SYMPTOMS OF SEPSIS TO REPORT AND DISEASE MANAGEMENT OF SEPSIS. [code = SKILLED NURSE TO INSTRUCT PATIENT/CAREGIVER ON PREVENTION OF SEPSIS, SIGNS AND SYMPTOMS OF SEPSIS TO REPORT AND DISEASE MANAGEMENT OF SEPSIS.] Future Scheduled Test PATIENT MITCHELL S A RISK OF HOSPITALIZATION AND ED USE. SKILLED NURSE TO ESTABLISH SUPPORT MEASURES TO MINIMIZE RISK OF HOSPITALIZATION AND ED USE, AND INSTRUCT PATIENT/CAREGIVER ON METHODS TO REDUCE AVOIDABLE HOSPITALIZATION AND ED USE. [code = PATIENT HAS A RISK OF HOSPITALIZATION AND ED USE. SKILLED NURSE TO ESTABLISH SUPPORT MEASURES TO MINIMIZE RISK OF HOSPITALIZATION AND ED USE, AND INSTRUCT PATIENT/CAREGIVER ON METHODS TO REDUCE AVOIDABLE HOSPITALIZATION AND ED USE.] Future Scheduled Test SKILLED NU RSE TO PROVIDE INSTRUCTION TO PATIENT/CAREGIVER RELATED TO DISCHARGE PLANNING. [code = SKILLED NURSE TO PROVIDE INSTRUCTION TO PATIENT/CAREGIVER RELATED TO DISCHARGE PLANNING.] Future Scheduled Test SKILLED NU RSE TO PERFORM HOME SAFETY AND FALL ASSESSMENT AND PROVIDE INSTRUCTION TO IMPLEMENT HOME SAFETY AND FALL PREVENTION STRATEGIES. [code = SKILLED NURSE TO PERFORM HOME SAFETY AND FALL ASSESSMENT AND PROVIDE INSTRUCTION TO IMPLEMENT HOME SAFETY AND FALL PREVENTION STRATEGIES.] Future Scheduled Test SKILLED NU RSE FOR OBSERVATION AND ASSESSMENT OF PATIENTS PAIN LEVEL AND EFFECTIVENESS OF PAIN MANAGEMENT REGIMEN. SKILLED NURSE TO INSTRUCT PATIENT/CAREGIVER REGARDING PHARMACOLOGIC AND NON-PHARMACOLOGIC PAIN CONTROL MEASURES. SKILLED NURSE TO REPORT TO PHYSICIAN IF PAIN IS UNCONTROLLED WITH CURRENT PAIN MANAGEMENT REGIMEN. [code = SKILLED NURSE FOR OBSERVATION AND ASSESSMENT OF PATIENTS PAIN LEVEL AND EFFECTIVENESS OF PAIN MANAGEMENT REGIMEN. SKILLED NURSE TO INSTRUCT PATIENT/CAREGIVER REGARDING PHARMACOLOGIC AND NON-PHARMACOLOGIC PAIN CONTROL MEASURES. SKILLED NURSE TO REPORT TO PHYSICIAN IF PAIN IS UNCONTROLLED WITH CURRENT PAIN MANAGEMENT REGIMEN.] Future Scheduled Test SKILLED NU RSE TO ASSESS PATIENT'S SKIN INTEGRITY AND INSTRUCT PATIENT/CAREGIVER ON MEASURES TO PREVENT PRESSURE ULCERS. [code = SKILLED NURSE TO ASSESS PATIENT'S SKIN INTEGRITY AND INSTRUCT PATIENT/CAREGIVER ON MEASURES TO PREVENT PRESSURE ULCERS.] Future Scheduled Test SKILLED NU RSE TO PROVIDE ASSESSMENT AND TEACHING/REINFORCEMENT OF MANAGEMENT OF DEPRESSION INCLUDING DISEASE PROCESS, MEDICATION MANAGEMENT, COPING SKILLS AND IDENTIFY CHANGES ASSOCIATED WITH DEPRESSIVE DISORDERS FOR EARLY INTERVENTION. [code = SKILLED NURSE TO PROVIDE ASSESSMENT AND TEACHING/REINFORCEMENT OF MANAGEMENT OF DEPRESSION INCLUDING DISEASE PROCESS, MEDICATION MANAGEMENT, COPING SKILLS AND IDENTIFY CHANGES ASSOCIATED WITH DEPRESSIVE DISORDERS FOR EARLY INTERVENTION.] Goal 2023-05-06 Patient Goal - W ALK BETTER. STAY OUTOF THE HOSPITAL SO I CAN HAVE SURGERY Goal 2023-03-05 Patient Goal - W ALK BETTER. STAY OUTOF THE HOSPITAL SO I CAN HAVE SURGERY Goal 2023-02-20 Patient Goal - W ALK BETTER. STAY OUTOF THE HOSPITAL SO I CAN HAVE SURGERY Goal 2023-07-05 Patient Goal - W ALK BETTER. STAY OUTOF THE HOSPITAL SO I CAN HAVE SURGERY Goal Provider Goal - A PLAN OF CARE WILL BE ESTABLISHED THAT MEETS PATIENT'S SHELTER NEEDS AND INCLUDES PATIENT GOAL FOR HOME HEALTH. Goal Provider Goal - PATIENT/CAREGIVER WILL VERBALIZE UNDERSTANDING OF EDUCATION PROVIDED ON MEDICATIONS BY THE END OF THE CERTIFICATION PERIOD. Goal Provider Goal - SYMPTOMS OF ANXIETY ARE IDENTIFIED AND INTERVENTIONS INITIATED TO ENABLE PATIENT TO UNDERSTAND AND MANAGE FEELINGS THROUGHOUT EPISODE. Goal Provider Goal - PATIENT/CAREGIVER WILL VERBALIZE/DEMONSTRATE UNDERSTANDING OF SAFE OXYGEN USE IN THE HOME THROUGHOUT THE EPISODE. Goal Provider Goal - PATIENT/CAREGIVER WILL DEMONSTRATE ABILITY TO SELF MANAGE NEEDS RELATED TO NUTRITION/HYDRATION THROUGHOUT THE EPISODE. Goal Provider Goal - PATIENT/CAREGIVER WILL VERBALIZE UNDERSTANDING OF GENITOURINARY DISEASE PROCESS, AND EXACERBATIONS OF GENITOURINARY DISEASE WILL BE PROMPTLY IDENTIFIED FOR EARLY INTERVENTION THROUGHOUT THE CERTIFICATION PERIOD. Goal Provider Goal - PATIENT/CAREGIVER WILL VERBALIZE/DEMONSTRATE INFECTION CONTROL MEASURES AND SIGNS AND SYMPTOMS OF INFECTION WILL BE IDENTIFIED AND PHYSICIAN NOTIFIED FOR PROMPT INTERVENTION THROUGHOUT THE CERTIFICATION PERIOD. Goal Provider Goal - WOUND CARE WILL BE COMPLETED AND PATIENT WILL HAVE IMPROVED WOUND STATUS EVIDENCED BY NO SIGNS AND SYMPTOMS OF INFECTION, DECREASED WOUND SIZE, AND/OR NO COMPLICATIONS BY THE END OF THE CERTIFICATION PERIOD. Goal Provider Goal - PATIENT/CAREGIVER WILL VERBALIZE/DEMONSTRATE UNDERSTANDING OF SAFE PROVISION OF ADLS BY THE END OF THE CERTIFICATION PERIOD. Goal Provider Goal - BLOOD SUGAR READING WILL BE OBTAINED ORDERED. Goal Provider Goal - PATIENT/CAREGIVER WILL VERBALIZE/DEMONSTRATE THE ABILITY TO MANAGE CIRCULATORY DISEASE PROCESS AND EXACERBATIONS WILL BE IDENTIFIED FOR EARLY INTERVENTION THROUGHOUT THE CERTIFICATION PERIOD. Goal Provider Goal - PATIENT/CAREGIVER WILL VERBALIZE/DEMONSTRATE UNDERSTANDING OF MANAGEMENT OF ANTICOAGULATION THERAPY BY END OF CERTIFICATION PT/INR OBTAINED AND REPORTED TO PHYSICIAN. Goal Provider Goal - PATIENT/CAREGIVER WILL VERBALIZE UNDERSTANDING OF SIGNS AND SYMPTOMS, COMPLICATIONS, AND MANAGEMENT OF ATRIAL FIBRILLATION THROUGHOUT THE CERTIFICATION PERIOD. Goal Provider Goal - PATIENT/CAREGIVER WILL VERBALIZE SIGNS AND SYMPTOMS OF HYPERTENSION AND WILL BE ABLE TO DEMONSTRATE ABILITY TO MANAGE EXACERBATION BY END OF THE EPISODE. Goal Provider Goal - PATIENT/CAREGIVER WILL VERBALIZE/DEMONSTRATE UTILIZATION OF TOOLS ASSOCIATED WITH THE [facility], AND/OR KNOWLEDGE AND MANAGEMENT OF COPD BY END OF EPISODE. Goal Provider Goal - PATIENT/CAREGIVER WILL VERBALIZE/DEMONSTRATE UTILIZATION OF TOOLS ASSOCIATED WITH THE [facility]ART SPECIALTY PROGRAM, AND/OR KNOWLEDGE AND MANAGEMENT OF HEART FAILURE DISEASE PROCESS BY END OF EPISODE. Goal Provider Goal - PATIENT/CAREGIVER WILL DEMONSTRATE COMPLIANCE WITH TREATMENT REGIME AND VERBALIZE SIGNS AND SYMPTOMS TO REPORT WELL POSSIBLE COMPLICATIONS OF CVA BY END OF EPISODE. Goal Provider Goal - PATIENT/CAREGIVER WILL VERBALIZE/DEMONSTRATE KNOWLEDGE OF DIABETIC MANAGEMENT. CHANGES IN DIABETIC STATUS WILL BE IDENTIFIED AND REPORTED TO PHYSICIAN FOR PROMPT INTERVENTION THROUGHOUT THE CERTIFICATION PERIOD. Goal Provider Goal - PATIENT WILL BE FREE FROM INFECTION AND PATIENT/CAREGIVER WILL VERBALIZE UNDERSTANDING OF SIGNS AND SYMPTOMS AND MANAGEMENT OF SEPSIS BY END OF THE EPISODE. Goal Provider Goal - PATIENT WILL HAVE SUPPORT MEASURES ESTABLISHED TO PREVENT HOSPITALIZATION AND ED USE AND PATIENT/CAREGIVER WILL VERBALIZE/DEMONSTRATE METHODS TO REDUCE AVOIDABLE HOSPITALIZATION AND ED USE BY END OF EPISODE. Goal Provider Goal - PATIENT/CAREGIVER WILL VERBALIZE UNDERSTANDING OF DISCHARGE PLANNING INSTRUCTIONS BY DATE OF DISCHARGE. Goal Provider Goal - PATIENT/CAREGIVER WILL VERBALIZE/DEMONSTRATE EFFECTIVE HOME SAFETY AND FALL PREVENTION STRATEGIES THROUGHOUT CERTIFICATION PERIOD. Goal Provider Goal - PATIENT/CAREGIVER WILL DEMONSTRATE UNDERSTANDING OF PHARMACOLOGIC AND NONPHARMACOLOGIC PAIN CONTROL MEASURES AND PATIENT WILL HAVE IMPROVEMENT IN PAIN INTERFERING WITH ACTIVITY EVIDENCED BY PAIN CONTROLLED AT LEVEL OF 5 OR LESS BY END OF CERTIFICATION PERIOD. Goal Provider Goal - PATIENT/CAREGIVER WILL VERBALIZE UNDERSTANDING OF PRESSURE ULCER PREVENTION BY END OF THE EPISODE. Goal Provider Goal - PATIENT/CAREGIVER WILL VERBALIZE/DEMONSTRATE UNDERSTANDING OF THE MANAGEMENT OF DEPRESSION THROUGHOUT THE CERTIFICATION PERIOD AND SYMPTOMS ARE IDENTIFIED AND MANAGED TO MAINTAIN PATIENT SAFETY IN THE HOME. Reason for Visit INDEPENDENT IN THE COMMUNITY Encounters Start Date/Time End Date/Time Encounter Type Admission Type Attending [facility] Care Department Encounter ID Discharge Date Discharge Status Discharge Condition Discharge Reason Percent Goals Met 2023-01-09 00:00:00 2023-07-05 00:00:00 Outpatient RECERTIFIC ATION ELIAS COVARRUBIAS [facility] [id number] 2023-07-05 00:00:00 DISCHARGE TO HOME OR SELF CARE INDEPENDEN T IN THE COMMUNITY GOALS MET ( ONLY) 45.00
--- OUTSIDE RECORDS SUMMARY | 2024-09-03 20:09 | XMS_ITS ---
Author Organization [facility] Address [address] [place], [place] [id number] Care Team Providers Care Apprentice Jockey Name Role Phone DonalRONALD baltazar Unavailable [phone] Megan Infante Unavailable Unavailable KARLA GUNN Unavailable [phone] REASON FOR VISIT *General care Encounters Encounter Location Date Provider Diagnosis [facility] [place] [address] [place], [place] [id number] 03/30/2024 KARLA GUNN Plan Of Treatment Next Appt Details Provider Name:KARLA GUNN, 09/07/2024 02:10:00 PM, [address] [place] [address], [phone], Progress Notes * OBIE SIMS RDOB:1955 (69 yo M)Acc No.[id number]:03/30/2024 Patient:?OBIE SIMS Provider:DOMENICO GUNN :1955???Age:68 Y???Sex:Male Stevenson e:03/30/2024 Address:[address] [place], [place] [id number] Subjective: * Chief Complaints: * ???1. *General care. * Medical History:? Objective: * Vitals:? Assessment: Plan: * Treatment: * Billing Information: * Visit Code:? * Procedure Codes:? * Electronic signature of LUIS FERNANDO GUNN DPM on 09/03/2024 at 08:26 AM SUPERCHARGER MECHANIC Sign off status: Pending * Provider:DOMENICO GUNN Date:?03/30/2024 Generated for Katiana watson/Kaitlyn/Mnidy on:?09/03/2024 08:26 AM SUPERCHARGER MECHANIC
--- OUTSIDE RECORDS SUMMARY | 2024-09-03 20:09 | XMS_ITS | Clinical Summary ---
Author Organization Unknown Care Team Providers Care Sales Promotion Director Name Role Phone PENNIE INDUSTRIAL MAINTENANCE INSTRUCTOR, JOSE A Unavailable Unavailable JACOB REGISTERED NURSE, GUSTABO Unavailable Unavailable CHANDLER PHYSICAL THERAPIST, EMILE Unavailabl e Unavailable SATHYA RADIO DESPATCHER, MONICA Unavail able Unavailable Payers Payer Name Policy Type Policy Number Effective Date Expira tion Date [employer] MEDICARE ADVANTAGE - EPISODIC Problems Condition Name Condition Details Condition Category Status Onset Date Resolution Date Last Treatment Date Treating Clinician Comments HYPERTENSIVE HEART DISEASE WITH HEART FAILURE Active 08-23 00:00: 00 CHRONIC COMBINED SYSTOLIC AND DIASTOLIC HRT FAIL Active 2023-08 2 00:00: 00 TYPE 2 DIABETES MELLITUS WITH DIABETIC NEUROPATHY, UNSP Active 08-23 00:00: 00 DERMATITIS, UNSPECIFIED Active 08-23 00:00: 00 TYPE 2 DIABETES MELLITUS W DIABETIC CHRONIC KIDNEY DISEASE Active 08-23 00:00: 00 CHRONIC KIDNEY DISEASE, STAGE 3 UNSPECIFIED Active 08-23 00:00: 00 ANEMIA IN CHRONIC KIDNEY DISEASE Active 08-23 00:00: 00 TYPE 2 DIABETES W DIABETIC PERIPHERAL ANGIOPATH W/O GANGRENE Active 08-23 00:00: 00 VENOUS INSUFFICIENC Y (CHRONIC) (PERIPHERAL) Active 08-23 00:00: 00 DEPRESSION, UNSPECIFIED Active 08-23 00:00: 00 CHRONIC ATRIAL FIBRILLATION , UNSPECIFIED Active 08-23 00:00: 00 OLD MYOCARDIAL INFARCTION Active - 00:00: 00 OTHER SPECIFIED CHRONIC OBSTRUCTIVE PULMONARY DISEASE Active - 00:00: 00 MILD INTERMITTENT ASTHMA, UNCOMPLICATE D Active - 00:00: 00 PULMONARY HYPERTENSION , UNSPECIFIED Active 08-23 00:00: 00 MIXED HYPERLIPIDEM IA Active 08-23 00:00: 00 ANXIETY DISORDER, UNSPECIFIED Active 08-23 00:00: 00 ATHSCL HEART DISEASE OF [place] CORONARY ARTERY W/O ANG PCTRS Active 08-23 00:00: 00 OCCLUSION AND STENOSIS OF UNSPECIFIED CAROTID ARTERY Active 08-23 00:00: 00 UNSPECIFIED OSTEOARTHRIT IS, UNSPECIFIED SITE Active 08-23 00:00: 00 SPINAL STENOSIS, CERVICAL REGION Active 08-23 00:00: 00 PRESENCE OF PROSTHETIC HEART VALVE Active 08-23 00:00: 00 PRSNL HX OF TIA (TIA), AND CEREB INFRC W/O RESID DEFICITS Active 08-23 00:00: 00 PERSONAL HISTORY OF NICOTINE DEPENDENCE Active 08-23 00:00: 00 [facility] (CURRENT) USE OF ASPIRIN Active 08-23 00:00: 00 DIRECTOR BIOINFORMATICS (CURRENT) USE OF ORAL HYPOGLYCEMIC DRUGS Active 08-23 00:00: 00 LNG TRM (CRNT) USE INJECTABLE NON-INSULIN ANTIDIABETIC DRUGS Active 08-23 00:00: 00 DIRECTOR BIOINFORMATICS (CURRENT) USE OF ANTICOAGULAN TS Active 08-23 00:00: 00 DIRECTOR BIOINFORMATICS (CURRENT) USE OF INHALED STEROIDS Active 08-23 00:00: 00 DEPENDENCE ON SUPPLEMENTAL OXYGEN Active 08-23 00:00: 00 HISTORY OF FALLING Active 08-23 00:00: 00 Allergies, Adverse Reactions, Alerts Allergy Name Allergy Type Status Severity Reaction(s) Onset Date Inactive Date Treating Clinician Comments NO KNOWN ALLERGIES Propensity to adverse reactions Active 2023-08 13:31: 32 Medications Ordered Medication Name Filled Medication Name Start Date Stop Date Current Medication? Ordering Clinician Indication Dosage Frequency Signature (SIG) Comments Components allopurinol 300 mg tablet 03-01 00:00: 00 08-17 23:59 :00 No [id number] GOUT 1 tablet ONCE DAILY 1 tablet ONCE DAILY (route: oral) Med Classific ation: Gout and Hyperuric emia Therapy aspirin 81 mg tablet,brandon yed release 03-01 00:00: 08-17 23:59 :00 No [id number] CAD 1 tablet ONCE DAILY 1 tablet ONCE DAILY (route: oral) Med Classific ation: Hematolog ical Agents atorvastati n 80 mg tablet 03-01 00:00: 00 08-17 23:59 :00 No [id number] HLD 1 tablet ONCE DAILY 1 tablet ONCE DAILY (route: oral) Med Classific ation: Cardiovas cular Therapy Agents carvedilol 3.125 mg tablet 03-01 00:00: 00 08-17 23:59 :00 No [id number] CAD 1 tablet TWICE DAILY 1 tablet TWICE DAILY (route: oral) Med Classific ation: Cardiovas cular Therapy Agents dicloxacill in 500 mg capsule 02-24 00:00: 00 03-05 23:59 :00 No [id number] CELLULITIS 1 capsule 4 TIMES DAILY 1 capsule 4 TIMES DAILY (route: oral) Med Classific ation: Anti-Infe ctive Agents docusate sodium 100 mg capsule 03-01 00:00: 00 08-17 23:59 :00 No [id number] CONSTIPATIO N 1 capsule TWICE DAILY 1 capsule TWICE DAILY (route: oral) Med Classific ation: Gastroint estinal Therapy Agents Entresto 24 mg-26 mg tablet 03-01 00:00: 00 08-17 23:59 :00 No [id number] CHF 1 tablet TWICE DAILY 1 tablet TWICE DAILY (route: oral) Med Classific ation: Cardiovas cular Therapy Agents ferrous sulfate 325 mg (65 mg iron) tablet 03-01 00:00: 00 08-17 23:59 :00 No [id number] ANEMIA 1 tablet ONCE DAILY 1 tablet ONCE DAILY (route: oral) Med Classific ation: Electroly te Balance-N utritiona l Products furosemide 40 mg tablet 03-01 00:00: 00 08-17 23:59 :00 No [id number] CHF 1 tablet TWICE DAILY 1 tablet TWICE DAILY (route: oral) Med Classific ation: Cardiovas cular Therapy Agents gabapentin 400 mg capsule 03-01 00:00: 08-17 23:59 :00 No [id number] NEUROPATHY 1 capsule TWICE DAILY 1 capsule TWICE DAILY (route: oral) Med Classific ation: Central Nervous System Agents glipizide 5 mg tablet 03-01 00:00: 08-17 23:59 :00 No [id number] DM 1 tablet ONCE DAILY 1 tablet ONCE DAILY (route: oral) Med Classific ation: Endocrine hydrocodone 7.5 mg-acetamin ophen 325 mg tablet 03-01 00:00: 08-17 23:59 :00 No [id number] PAIN 1 tablet 3 TIMES DAILY 1 tablet 3 TIMES DAILY (route: oral) Med Classific ation: Analgesic , Anti-infl ammatory or Antipyret ic hydroxyzine HCl 50 mg tablet 03-01 00:00: 00 08-17 23:59 :00 No [id number] ITCHING 2 tablet 3 TIMES DAILY 2 tablet 3 TIMES DAILY (route: oral) Med Classific ation: Central Nervous System Agents Jardiance 25 mg tablet 03-01 00:00: 08-17 23:59 :00 No [id number] DM 1 tablet ONCE DAILY 1 tablet ONCE DAILY (route: oral) Med Classific ation: Endocrine OXYGEN 03-01 00:00: 08-17 23:59 :00 No [id number] HYPOXIA 2-3 Liter NEEDED 2-3 Liter NEEDED (route: Oxygen) Med Classific ation: Medical Oxygen Ozempic 1 mg/dose (4 mg/3 mL) subcutaneou s pen injector 03-01 00:00: 00 08-17 23:59 :00 No [id number] DM 1 mg WEEKLY 1 mg WEEKLY (route: subcutaneo us) Med Classific ation: Endocrine pantoprazol e 40 mg tablet,brandon yed release 03-01 00:00: 00 08-17 23:59 :00 No [id number] GERD 1 tablet ONCE DAILY 1 tablet ONCE DAILY (route: oral) Med Classific ation: Gastroint estinal Therapy Agents potassium chloride ER 20 mEq tablet,exte nded release 03-01 00:00: 00 08-17 23:59 :00 No [id number] HYPOKALEMIA 1 tablet ONCE DAILY 1 tablet ONCE DAILY (route: oral) Med Classific ation: Electroly te Balance-N utritiona l Products ropinirole 2 mg tablet 03-01 00:00: 00 08-17 23:59 :00 No [id number] RLS 2 tablet AT BEDTIME 2 tablet AT BEDTIME (route: oral) Med Classific ation: Central Nervous System Agents sertraline 50 mg tablet 03-01 00:00: 00 08-17 23:59 :00 No [id number] DEPRESSION 1 tablet ONCE DAILY 1 tablet ONCE DAILY (route: oral) Med Classific ation: Central Nervous System Agents spironolact one 25 mg tablet 03-01 00:00: 00 08-17 23:59 :00 No [id number] CH 1 tablet ONCE DAILY 1 tablet ONCE DAILY (route: oral) Med Classific ation: Cardiovas cular Therapy Agents tamsulosin 0.4 mg capsule 03-01 00:00: 00 08-17 23:59 :00 No [id number] URINARY RETENTION 1 capsule ONCE DAILY 1 capsule ONCE DAILY (route: oral) Med Classific ation: Genitouri nary Therapy trazodone 150 mg tablet 03-01 00:00: 00 08-17 23:59 :00 No [id number] INSOMNIA 1 tablet AT BEDTIME 1 tablet AT BEDTIME (route: oral) Med Classific ation: Central Nervous System Agents Tresiba FlexTouch U-200 insulin 200 unit/mL (3 mL) subcutaneou s pen 03-01 00:00: 00 08-17 23:59 :00 No [id number] DM 30 unit ONCE DAILY 30 unit ONCE DAILY (route: subcutaneo us) Med Classific ation: Endocrine Ventolin HFA 90 mcg/actuati on aerosol inhaler 03-01 00:00: 00 08-17 23:59 :00 No [id number] WHEEZING/SH ORTNESS OF BREATH 1 puff EVERY 4 HOURS 1 puff EVERY 4 HOURS (route: inhalation ) Med Classific ation: Respirato ry Therapy Agents warfarin 1 mg tablet 03-01 00:00: 00 08-17 23:59 :00 No [id number] AFIB 1 tablet AT BEDTIME 1 tablet AT BEDTIME (route: oral) Med Classific ation: Hematolog ical Agents warfarin 5 mg tablet 03-01 00:00: 00 08-17 23:59 :00 No [id number] AFIB 1 tablet AT BEDTIME 1 tablet AT BEDTIME (route: oral) Med Classific ation: Hematolog ical Agents albuterol sulfate HFA 90 mcg/actuati on aerosol inhaler 2023-08 00:00: 00 Yes [id number] WHEEZING 2 puff EVERY 4 HOURS 2 puff EVERY 4 HOURS (route: inhalation ) Med Classific ation: Respirato ry Therapy Agents allopurinol 300 mg tablet 2023-08 00:00: 00 Yes [id number] GOUT 1 tablet DAILY 1 tablet DAILY (route: oral) Med Classific ation: Gout and Hyperuric emia Therapy aspirin 81 mg tablet,brandon yed release 2023-08 00:00: 00 Yes [id number] BLOOD CLOT PREVENTION 1 tablet DAILY 1 tablet DAILY (route: oral) Med Classific ation: Hematolog ical Agents carvedilol 3.125 mg tablet 2023-08 00:00: 00 Yes [id number] HTN 1 tablet 2 TIMES DAILY 1 tablet 2 TIMES DAILY (route: oral) Med Classific ation: Cardiovas cular Therapy Agents Colace 100 mg capsule 2023-08 00:00: 00 Yes [id number] CONSTIPATIO N 1 capsule DAILY 1 capsule DAILY (route: oral) Med Classific ation: Gastroint estinal Therapy Agents cyclobenzap rine 10 mg tablet 2023-08 00:00: 00 Yes [id number] BPH 1 tablet DAILY 1 tablet DAILY (route: oral) Med Classific ation: Locomotor System Entresto 24 mg-26 mg tablet 2023-08 00:00: 00 Yes [id number] HF 1 tablet 2 TIMES DAILY 1 tablet 2 TIMES DAILY (route: oral) Med Classific ation: Cardiovas cular Therapy Agents folic acid 1 mg tablet 2023-08 00:00: 00 Yes [id number] SUPPLEMENT 1 tablet DAILY 1 tablet DAILY (route: oral) Med Classific ation: Electroly te Balance-N utritiona l Products gabapentin 400 mg capsule 2023-08 00:00: 00 Yes [id number] NEUROPATHY 1 capsule 2 TIMES DAILY 1 capsule 2 TIMES DAILY (route: oral) Med Classific ation: Central Nervous System Agents glipizide 5 mg tablet 2023-08 00:00: 00 Yes [id number] DIABETES 1 tablet DAILY 1 tablet DAILY (route: oral) Med Classific ation: Endocrine hydrocodone 10 mg-acetamin ophen 325 mg tablet 2023-08 00:00: 00 Yes [id number] PAIN 1 tablet EVERY 6 HOURS 1 tablet EVERY 6 HOURS (route: oral) Med Classific ation: Analgesic , Anti-infl ammatory or Antipyret ic hydroxyzine HCl 50 mg tablet 2023-08 00:00: 00 Yes [id number] ITCHING 2 tablet 3 TIMES DAILY 2 tablet 3 TIMES DAILY (route: oral) Med Classific ation: Central Nervous System Agents Jardiance 25 mg tablet 2023-08 00:00: 00 Yes [id number] DIABETES 1 tablet DAILY 1 tablet DAILY (route: oral) Med Classific ation: Endocrine Lasix 80 mg tablet 2023-08 00:00: 00 Yes [id number] FLUID RETENTION 1 tablet DAILY 1 tablet DAILY (route: oral) Med Classific ation: Cardiovas cular Therapy Agents oxygen gas for inhalation 2023-08 00:00: 00 08-21 23:59 :00 No [id number] OXYGENATION 2 Liter O2 - PRN 2 Liter O2 - PRN (route: inhalation ) Med Classific ation: Medical Supplies and Durable Medical Equipment (DME) Ozempic 1 mg/dose (4 mg/3 mL) subcutaneou s pen injector 2023-08 00:00: 00 Yes [id number] DIABETES 1 mg WEEKLY 1 mg WEEKLY (route: subcutaneo us) Med Classific ation: Endocrine pregabalin 150 mg capsule 2023-08 00:00: 00 Yes [id number] MUSCLE PAIN 1 capsule 2 TIMES DAILY 1 capsule 2 TIMES DAILY (route: oral) Med Classific ation: Central Nervous System Agents sertraline 50 mg tablet 2023-08 00:00: 00 Yes [id number] DEPRESSION 1 tablet DAILY 1 tablet DAILY (route: oral) Med Classific ation: Central Nervous System Agents trazodone 150 mg tablet 2023-08 00:00: 00 Yes [id number] DEPRESSION 2 tablet DAILY 2 tablet DAILY (route: oral) Med Classific ation: Central Nervous System Agents Trelegy Ellipta 100 mcg-62.5 mcg-25 mcg powder for inhalation 2023-08 00:00: 00 Yes [id number] SHORTNESS OF BREATH 1 inhalat ion DAILY 1 inhalation DAILY (route: inhalation ) Med Classific ation: Respirato ry Therapy Agents warfarin 4 mg tablet 2023-08 00:00: 00 Yes [id number] BLOOD CLOT PREVENTION 1 tablet DAILY 1 tablet DAILY (route: oral) Med Classific ation: Hematolog ical Agents oxygen gas for inhalation 2023-08 00:00: 00 Yes [id number] OXYGENATION 2 Liter O2 - PRN 2 Liter O2 - PRN (route: inhalation ) Alternate Route: O2 - NASAL CANNULA. Med Classific ation: Medical Supplies and Durable Medical Equipment (DME) Immunizations Ordered Immunization Name Filled Immunization Name Date Status Comments Refusal Reason INFLUENZA, TIV (INACTIVATED) 2024-05-09 00:00:00 PNEUMOCOCCAL (PPV), PPV 2022 00:00:00 Vital Signs Vital Name Observation Time Observation Value Commen ts Temperature 2024-08-28 09:27:00.000 97.9 [degF] Temperature 2024-08-21 13:20:00.000 97.1 [degF] Temperature 2024-08-20 13:26:00.000 97.4 [degF] BMI (%) 2024-08-20 13:26:00.000 36 kg/m2 Height 2024-08-20 13:26:00.000 66 [in_us] Pulse 2024-08-28 09:27:00.000 84 /min Pulse 2024-08-21 13:20:00.000 82 /min Pulse 2024-08-20 13:26:00.000 71 /min O2 Saturation (%) 2024-08-28 09:27:00.000 96 % O2 Saturation (%) 2024-08-21 13:20:00.000 96 % O2 Saturation (%) 2024-08-20 13:26:00.000 92 % Respirations 2024-08-28 09:33:00.000 22 /min Respirations 2024-08-21 13:20:00.000 18 /min Respirations 2024-08-20 13:26:00.000 18 /min Weight (lbs) 2024-08-28 09:27:00.000 233 [lb_av] Weight (lbs) 2024-08-20 13:26:00.000 227 [lb_av] Systolic Blood Pressure 2024-08-28 09:27:00.000 117 mm [Hg] Systolic Blood Pressure 2024-08-21 13:20:00.000 124 mm [Hg] Systolic Blood Pressure 2024-08-20 13::00.000 132 mm [Hg] Diastolic Blood Pressure 2024-08-28 09:27:00.000 68 mm [Hg] Diastolic Blood Pressure 2024-08-21 13::00.000 82 mm [Hg] Diastolic Blood Pressure 2024-08-20 13:26:00.000 74 mm [Hg] Plan of Treatment Planned Activity Planned Date Details Comments Future Scheduled Test THE CER TIFYING PHYSICIAN, ASSOCIATED PHYSICIAN, NPP OR PA WITHIN THE SAME GROUP MAY APPROVE AND SIGN THE ORDER (ON ANY PAGE) ATTESTING THAT THE COMPREHENSIVE OUTCOME ASSESSMENTS, EVALUATIONS, AND HOME HEALTH CERTIFICATION PLANS SUPPORT HOMEBOUND STATUS. HOME HEALTH WEB-PORTAL DOCUMENTATION ACCESSED BY THE PHYSICIAN MUST BE INCORPORATED INTO THE MEDICAL RECORD TO CORROBORATE THE PHYSICIAN, NPP, OR PAS F2F ENCOUNTER TO SUPPORT ELIGIBILITY FOR HOME HEALTH SERVICES. [code = THE CERTIFYING PHYSICIAN, ASSOCIATED PHYSICIAN, NPP OR PA WITHIN THE SAME GROUP MAY APPROVE AND SIGN THE ORDER (ON ANY PAGE) ATTESTING THAT THE COMPREHENSIVE OUTCOME ASSESSMENTS, EVALUATIONS, AND HOME HEALTH CERTIFICATION PLANS SUPPORT HOMEBOUND STATUS. HOME HEALTH WEB-PORTAL DOCUMENTATION ACCESSED BY THE PHYSICIAN MUST BE INCORPORATED INTO THE MEDICAL RECORD TO CORROBORATE THE PHYSICIAN, NPP, OR PAS F2F ENCOUNTER TO SUPPORT ELIGIBILITY FOR HOME HEALTH SERVICES.] Future Scheduled Test EACH ORDER ED IN-HOME OR TELEHEALTH VISIT, THE SKILLED NURSE WILL CONDUCT A COMPREHENSIVE ASSESSMENT INCLUDING VITAL SIGNS, PAIN, SAFETY, MENTAL/COGNITIVE/PSYCHOSOCIAL STATUS, MED MANAGEMENT, NUTRITION, SKIN INTEGRITY, PRESSURE ULCER PREVENTION, AND PATIENT/CAREGIVER ABILITY TO SUPPORT ORDERED CARE. SKILLED NURSE WILL INSTRUCT ON DISEASE PROCESS, MED MGMT., FALL PREVENTION AND SAFETY, INFECTION CONTROL AND PREVENTION, WARNING SIGNS, ADDRESS RESULTS OUTSIDE OF ORDERED PARAMETERS LISTED ON CARE PLAN, AND COORDINATE DISCHARGE WITH THE TREATING PROVIDER. MAY ACCEPT ORDERS FROM THE FOLLOWING PROVIDER(S) WHO WILL BE CONSULTING ON THE CERTIFIED CARE PLAN: JOSE A CASPER INDUSTRIAL MAINTENANCE INSTRUCTOR [code = EACH ORDERED IN-HOME OR TELEHEALTH VISIT, THE SKILLED NURSE WILL CONDUCT A COMPREHENSIVE ASSESSMENT INCLUDING VITAL SIGNS, PAIN, SAFETY, MENTAL/COGNITIVE/PSYCHOSOCIAL STATUS, MED MANAGEMENT, NUTRITION, SKIN INTEGRITY, PRESSURE ULCER PREVENTION, AND PATIENT/CAREGIVER ABILITY TO SUPPORT ORDERED CARE. SKILLED NURSE WILL INSTRUCT ON DISEASE PROCESS, MED MGMT., FALL PREVENTION AND SAFETY, INFECTION CONTROL AND PREVENTION, WARNING SIGNS, ADDRESS RESULTS OUTSIDE OF ORDERED PARAMETERS LISTED ON CARE PLAN, AND COORDINATE DISCHARGE WITH THE TREATING PROVIDER. MAY ACCEPT ORDERS FROM THE FOLLOWING PROVIDER(S) WHO WILL BE CONSULTING ON THE CERTIFIED CARE PLAN: JOSE A CASPER INDUSTRIAL MAINTENANCE INSTRUCTOR ] Future Scheduled Test HOME [facility]ALT H NURSE WILL TEACH PATIENT/CAREGIVER ABOUT HEART FAILURE, EDEMA, AND HOW TO WEIGH DAILY AT THE SAME TIME EVERY MORNING AFTER URINATING AND BEFORE BREAKFAST. INSTRUCT PATIENT TO CHECK FOR WEIGHT GAIN CAUSED BY INCREASED FLUID AND CONTACT THE PHYSICIAN IF 2LBS WEIGHT GAIN IN 1 DAY OR 5LBS WEIGHT GAIN IN 1 WEEK. HOME HEALTH RN TO TEACH PATIENT ABOUT WARNING SIGNS TO CONTACT THE AGENCY, PHYSICIAN, OR 911. MAY ADD 2 PRN VISITS PER MONTH FOR SIGNS/SYMPTOMS OF EXACERBATION SUCH INCREASED EDEMA, WEIGHT GAIN, SHORTNESS OF BREATH, OR FATIGUE. [code = HOME HEALTH NURSE WILL TEACH PATIENT/CAREGIVER ABOUT HEART FAILURE, EDEMA, AND HOW TO WEIGH DAILY AT THE SAME TIME EVERY MORNING AFTER URINATING AND BEFORE BREAKFAST. INSTRUCT PATIENT TO CHECK FOR WEIGHT GAIN CAUSED BY INCREASED FLUID AND CONTACT THE PHYSICIAN IF 2LBS WEIGHT GAIN IN 1 DAY OR 5LBS WEIGHT GAIN IN 1 WEEK. HOME HEALTH RN TO TEACH PATIENT ABOUT WARNING SIGNS TO CONTACT THE AGENCY, PHYSICIAN, OR 911. MAY ADD 2 PRN VISITS PER MONTH FOR SIGNS/SYMPTOMS OF EXACERBATION SUCH INCREASED EDEMA, WEIGHT GAIN, SHORTNESS OF BREATH, OR FATIGUE.] Future Scheduled Test SKILLED NU RSE TO OBSERVE AND ASSESS PATIENT WITH GENERALIZED DEPRESSION AND TEACH DEPRESSIVE SYMPTOMS. [code = SKILLED NURSE TO OBSERVE AND ASSESS PATIENT WITH GENERALIZED DEPRESSION AND TEACH DEPRESSIVE SYMPTOMS.] Future Scheduled Test HOME [facility] NURSE WILL INSTRUCT PATIENT/CAREGIVER ON TYPE 2 DIABETES DISEASE PROCESS, HOW TO CREATE A DIABETIC TOOLKIT TO MANAGE INVENTORY OF SUPPLIES, HOW TO PLAN FOR A SICK-DAY, AND WARNING SIGNS WHEN THE PATIENT EXPERIENCES LOW BLOOD SUGAR. [code = HOME HEALTH NURSE WILL INSTRUCT PATIENT/CAREGIVER ON TYPE 2 DIABETES DISEASE PROCESS, HOW TO CREATE A DIABETIC TOOLKIT TO MANAGE INVENTORY OF SUPPLIES, HOW TO PLAN FOR A SICK-DAY, AND WARNING SIGNS WHEN THE PATIENT EXPERIENCES LOW BLOOD SUGAR.] Future Scheduled Test HOME [facility] NURSE WILL INSTRUCT AND VERIFY APPROPRIATE STEPS ON HOW THE PATIENT CHECKS OWN BLOOD GLUCOSE AND IMPORTANCE TO TRACK BLOOD RESULTS ON A DAILY LOG OR NOTEBOOK TO MONITOR TRENDS. PATIENT/CAREGIVER OR HOME HEALTH RN WILL PERFORM BLOOD GLUCOSE CHECKS. BLOOD GLUCOSE MONITORING WILL OCCUR 2-3 NUMBER OF TIMES PER DAY. [code = HOME HEALTH NURSE WILL INSTRUCT AND VERIFY APPROPRIATE STEPS ON HOW THE PATIENT CHECKS OWN BLOOD GLUCOSE AND IMPORTANCE TO TRACK BLOOD RESULTS ON A DAILY LOG OR NOTEBOOK TO MONITOR TRENDS. PATIENT/CAREGIVER OR HOME HEALTH RN WILL PERFORM BLOOD GLUCOSE CHECKS. BLOOD GLUCOSE MONITORING WILL OCCUR 2-3 NUMBER OF TIMES PER DAY.] Future Scheduled Test HOME [facility] NURSE TO INSTRUCT PATIENT/CAREGIVER ON THE TYPE OF OXYGEN SUPPLY SYSTEM, BREATHING DEVICE, OXYGEN SAFETY, CLEANING OF OXYGEN SUPPLIES, EMERGENCY PREPAREDNESS TIPS WHEN MANAGING OXYGEN NEEDS, SIGNS OR SYMPTOMS TO CONTACT THE AGENCY OR PHYSICIAN. [code = HOME HEALTH NURSE TO INSTRUCT PATIENT/CAREGIVER ON THE TYPE OF OXYGEN SUPPLY SYSTEM, BREATHING DEVICE, OXYGEN SAFETY, CLEANING OF OXYGEN SUPPLIES, EMERGENCY PREPAREDNESS TIPS WHEN MANAGING OXYGEN NEEDS, SIGNS OR SYMPTOMS TO CONTACT THE AGENCY OR PHYSICIAN.] Future Scheduled Test SKILLED NU RSE TO INSTRUCT PATIENT/CAREGIVER ON WHAT IS HYPERTENSION, HOW TO CHECK HIS/HER BLOOD PRESSURE, AND STRATEGIES TO USE TO CONTROL BLOOD PRESSURE SUCH MONITORING BP, SMOKING CESSATION, MANAGING BLOOD GLUCOSE RESULTS TO AN ACCEPTABLE RANGE, MONITORING WEIGHTS, ENGAGING IN PHYSICAL ACTIVITY AIMING FOR 150 MINUTES SPREAD THROUGHOUT THE WEEK. [code = SKILLED NURSE TO INSTRUCT PATIENT/CAREGIVER ON WHAT IS HYPERTENSION, HOW TO CHECK HIS/HER BLOOD PRESSURE, AND STRATEGIES TO USE TO CONTROL BLOOD PRESSURE SUCH MONITORING BP, SMOKING CESSATION, MANAGING BLOOD GLUCOSE RESULTS TO AN ACCEPTABLE RANGE, MONITORING WEIGHTS, ENGAGING IN PHYSICAL ACTIVITY AIMING FOR 150 MINUTES SPREAD THROUGHOUT THE WEEK. ] Future Scheduled Test HOME [facility] NURSE WILL ASSESS FOR COMPLICATIONS RELATED TO ANTICOAGULATION/ANTIPLATELET USE AND INSTRUCT PATIENT/CAREGIVER ABOUT PRECAUTIONS TO FOLLOW AND SIGNS/SYMPTOMS TO REPORT. PATIENT AND CAREGIVER TO MONITOR AND MANAGE PT/INR INDEPENDENTLY ACCORDING TO MD ORDERS [employer] FOR REPORTING RESULTS TO PHYSICIAN. [code = HOME HEALTH NURSE WILL ASSESS FOR COMPLICATIONS RELATED TO ANTICOAGULATION/ANTIPLATELET USE AND INSTRUCT PATIENT/CAREGIVER ABOUT PRECAUTIONS TO FOLLOW AND SIGNS/SYMPTOMS TO REPORT. PATIENT AND CAREGIVER TO MONITOR AND MANAGE PT/INR INDEPENDENTLY ACCORDING TO MD ORDERS UTILIZING [employer] COMPANY FOR REPORTING RESULTS TO PHYSICIAN. ] Future Scheduled Test PHYSICAL T HERAPIST TO EVALUATE AND TREAT [code = PHYSICAL THERAPIST TO EVALUATE AND TREAT] Goal Patient Goal - 1 10/21/23- STAY OUT OF THE HOSPITAL AND HAVE NO MORE FALLS. Goal Provider Goal - A PLAN OF CARE WILL BE ESTABLISHED THAT MEETS ALL PATIENT'S LONG TERM NEEDS AND COUNTER SIGNED BY PHYSICIAN. Goal Provider Goal - PATIENT WILL BE FREE OF FALLS AND HOSPITALIZATIONS THROUGHOUT EPISODE OF CARE. PATIENT/CAREGIVER WILL UNDERSTAND AND ADHERE TO ORDERED DIET. PATIENT/CAREGIVER WILL INDEPENDENTLY MANAGE MEDICATIONS, UNDERSTAND ANY CHANGES, SIDE EFFECTS TO REPORT BY DISCHARGE. PATIENT WILL BE FREE OF INFECTION AND UNDERSTAND MEASURES OF PREVENTION. PATIENT/CAREGIVER WILL COLLABORATE WITH SKILLED NURSE TO DEVELOP POC AT SOC AND ON AN ONGOING BASIS UPDATES ARE NEEDED. UNDERSTAND PROGRESS MADE/DISCHARGE PLANNING. ADDITIONAL ORDERS WILL BE RECEIVED FROM ALTERNATE PHYSICIANS IN A TIMELY MANNER. Goal Provider Goal - PATIENT/CAREGIVER WILL DEMONSTRATE AND ADHERE TO WEIGHING DAILY WITH THE USE OF TRACKING LOG. PATIENT WILL VERBALIZE WAYS TO MONITOR FLUID OVERLOAD FROM OWN QUALITY OF SLEEP, EDEMA, TIGHT-FITTING CLOTHES, QUALITY OF BREATHING, AND CHANGES IN FEELING MORE TIRED OR WEEK BY THE END OF HOME HEALTH SERVICES. Goal Provider Goal - PATIENT/CAREGIVER WILL VERBALIZE UNDERSTANDING OF THE CONTRIBUTING FACTORS AND SYMPTOMS OF DEPRESSION. Goal Provider Goal - PATIENT/CAREGIVER WILL VERBALIZE UNDERSTANDING OF TYPE 2 DIABETES AND THE IMPORTANCE OF MANAGING THE BLOOD SUGAR WITHIN THE EXPECTED RANGE. PATIENT/CAREGIVER WILL ESTABLISH A DIABETIC TOOLKIT AND A SICK-DAY PLAN TO PREPARE FOR POTENTIAL CHANGES WITH BLOOD SUGARS RANGES. PATIENT/CAREGIVER WILL VERBALIZE WARNING SIGNS OF LOW BLOOD SUGAR AND WHAT ACTIONS TO TAKE. Goal Provider Goal - PATIENT/CAREGIVER WILL DEMONSTRATE PROPER TECHNIQUE WHEN CHECKING OWN BLOOD GLUCOSE, DEMONSTRATES ADHERES TO WRITING DOWN RESULTS USING A LOGBOOK, FOLLOWS THE PRESCRIBED FREQUENCY OF BLOOD SUGAR CHECKS PRIOR TO DISCHARGING FROM HOME HEALTH SERVICES. Goal Provider Goal - PATIENT/CAREGIVER WILL VERBALIZE UNDERSTANDING ON HOW TO CLEAN OXYGEN SUPPLIES, OXYGEN SAFETY, AND KNOW WHEN TO CONTACT THE PHYSICIAN BY THE END OF HOME HEALTH SERVICES. Goal Provider Goal - PATIENT/CAREGIVER WILL INDEPENDENTLY DEMONSTRATE HOW TO CHECK HIS/HER OWN BP AND VERBALIZE WHAT STRATEGIES CAN ASSIST TO CONTROL BLOOD PRESSURE. Goal Provider Goal - PATIENT/CAREGIVER WILL VERBALIZE UNDERSTANDING OF ANTICOAGULATION/ANTIPLATELET COMPLICATIONS TO REPORT AND PRECAUTIONS TO FOLLOW BY END OF HOME HEALTH SERVICES. Goal Provider Goal - Progress Notes Progress Notes <paragraph>[Visit Date: 2024 by ALINE LING LICENSED PRACTICAL NURSE]:</paragraph><paragraph>PTNT SITTING IN HIS RECLINER WITH FEET DEPENDENT WHEN SN ARRIVED. LOKESH ESCOBAR GAVE THIS SN UPDATE ON BRUISING ABNORMAL INR LAST EVENING. VS WNL. LUNGS VERY DIMINISHED ALL SANDY. SN ASSESSED BRUISING AND REMAINS DARK PURPLE. SN ASSESSED BS LOG AND COMPARED TO METER WITH DISCREPANCIES NOTED LOG BOOK IS MUCH LOWER THAN METER. SN DISCUSSED WITH LOKESH ESCOBAR SHE CHECKS LOG BOOK DAILY. SN INSTRUCTED TO ASSESS METER DUE TO FALSE READINGS IN LOG BOOK. TO SN CALLED [facility] IN [place], SN'S FINDINGS SUCH ABNORMAL DARK PURPLE BRUISING TO ABDOMEN, RT LEG, LEVEL 10 PAIN TO RIGHT RIB CAGE AREA, LUNG SOUNDS VERY DIMINISHED ALL SANDY, SOB. SN SPOKE WITH PROFILE GRINDER TECHNICIAN, THEN WAS TRANSFERED TO ER. SPOKE WITH CEMETERY WORKERS SUPERVISOR NIK. NIK TRANSFERED THIS SN BACK TO PROFILE GRINDER TECHNICIAN FOR MD CASKET COVERER. SN INSTRUCTED PROFILE GRINDER TECHNICIAN TO CALL CASKET COVERER DR BINA MONIQUE TO THIS SN BACK. SN RECEIVED CALL FROM DR BINA MONIQUE @ 1000 IN RE, PTNT FELL WEEK AND A HALF AGO WITH SEVERE PAIN TO RIGHT RIB CAGE, ABNORMAL DARK PURPLE BRUISING TO HALF OF ABDOMEN, INR LAST EVEING 6.2. LOKESH ESCOBAR HELD WARFARIN WITH INSTRUCTIONS TO GO TO NEAREST ER. SN INFORMED MD THAT PTNT WILL BE GOING TO [facility] ER FOR EVAL. SN CALLED LOKESH ESCOBAR DTR STAYED UPSTAIRS DURING SNV FOR PTNT TO GO TO ER. LUZ REPORTS THAT HER TAKES HIS LUNCH AT 1100 AND WILL TAKE PTNT THEN. SN CALLED [facility] ER 1040 SPOKE TO ER NURSE MITCHELL WITH UPDATE APPROXIMATE ETA. UPDATED PRIMARY RN SIS MONTEJO SUPERVISORS J LUIS HUERTAS, SCHEDULERS ORESTES, AND BELEM.</paragraph> Encounters Start Date/Time End Date/Time Encounter Type Admission Type Attending Clinicians Care Facility Care Department Encounter ID Discharge Date Discharge Status Discharge Condition Discharge Reason Percent Goals Met 2024-08-20 00:00:00 2024-10-18 00:00:00 Outpatient [facility] [id number] 33.33
--- OUTSIDE RECORDS SUMMARY | 2024-09-03 20:09 | XMS_ITS | Data Portability ---
Author Organization [facility], [address] [facility] ([place]) Address [address] [place] [address] Care Team Providers Care Athletic Instructor Name Role Phone MASHA PINEDA Primary Care Provider [phone] KATINA BELTRAN Wood Carver Hand MASHA PINEDA Referring Provider [phone] Assessment Encounter Date Assessment Date Assessment LastModified by Organization Details LastModified Time 03/16/2024 03/16/2024 Mr. Lay is a pleasant 68-year-old male [...] serum creatinine level has been between 1.3-1.5. -Chronic kidney disease stage III-since March 2022 his serum creatinine level has been between 1.3-1.5. Most recent serum creatinine level is stable at 1.47 with a GFR of 47 He denies having any chest pain, shortness with or palpitation Denies having any dysuria, hematuria or symptoms of UTI. -Nonnephrotic range proteinuria secondary to longstanding history of DM type II as well as hyper tension Urine microalbumin/creat inine ratio is at 380 mg/dL He is currently on losartan along with Entresto He was advised to go ahead and discontinue losartan -HTN Blood pressure in the office today is 120/72 KDIGO recommendations to prevent CKD progression -Advised [...] prescribe bisphosphonate treatment in people with GFR <30 ml/min/1.73 m2 (GFR categories G4-G5) without a strong clinical rationale. -Individualize Hba1c target goal of 6.5 to 8 % based on underlying comorbidities -Cessation of tobacco -Avoid Nephrotoxic agents -such as NSAIDS -renal dosage of all medications to the appropriate GFR tyler Not available 03/16/2024 12:16:49 06/15/2024 06/15/2024 Mr. Lay is a pleasant [...] Organization Details Last Modified Time Details Appointments [facility] Patient 15.EST 2024 01:00P M Dr. Katina Beltran Not available Not available Not available Lab None recorde d. Referral None recorde d. Procedures None recorde d. Surgeries None recorde d. Imaging None recorde d. Medication Orders None recorde d. Patient TargetsNo targets recorded. Patient InstructionsNo instructions recorded. Reason for Referral None Reported. Results Created Date Observation Date Name Description Value Unit Range Abnormal Flag Note LastModifiedBy Organization Detail LastModifiedTime 03/06/2005/03/2023 imagi ng/di agnos tic resul t No observ ation record ed. [email or web address] Not Available 04:13:21 04/06/2009/21/2022 imagi ng/di agnos tic resul t No observ ation record ed. Not Available 04/06/2024 06:24:43 04/06/20 24 09/22/2022 imagi ng/di agnos tic resul t No observ ation record ed. Not Available 04/06/2024 06:24:46 04/06/20 24 12/05/2022 imagi ng/di agnos tic resul t No observ ation record ed. Not Available 04/06/2024 06:24:57 04/06/20 24 12/05/2022 imagi ng/di agnos tic resul t No observ ation record ed. Not Available 04/06/2024 06:24:59 04/06/20 24 01/15/2023 imagi ng/di agnos tic resul t No observ ation record ed. Not Available 04/06/2024 06:25:17 04/06/20 24 02/06/2023 imagi ng/di agnos tic resul t No observ ation record ed. Not Available 04/06/2024 06:25:18 04/06/20 24 02/06/2023 imagi ng/di agnos tic resul t No observ ation record ed. Not Available 04/06/2024 06:25:20 06/20/20 24 08/06/2023 imagi ng/di agnos tic resul t No observ ation record ed. [email or web address] Not Available 22:53:35 06/20/20 24 08/07/2023 imagi ng/di agnos tic resul t No observ ation record ed. [email or web address] Not Available 22:53:36 Result Notes None recorded. Problems Name Problem SNOMED Code Status Onset Date Resolution Date Notes Provider Name and Address Organization Details Recorded Time Hyperkalemia 39992872 Active 2023 Leatha york [facility] 4 10:23:34 Renal mass 919861199 Active 2023 Leatha york [facility] 4 10:23:41 Chronic kidney disease stage 3A 406608848 [facility] 10:[facility]51 Congestive heart failure 26907765 [facility] 10:24[facility]00 Vitamin D deficiency 78540115 Active 2023 Leatha Deluna [facility] 4 10:24:17 Dyspnea 818266802 [facility] 2023 [facility] 10:24[facility]26 Decreased renal function 68207258 Active 2023 Gaurangmora Potter [facility] 4 11:05:35 Problem Notes None recorded. Procedures Surgical History Date Name Laterality Status Provider Name and Address Organization Details Recorded Time Appendectomy completed Not Available Health Note 03/09/2024 12:07:18 Colonoscopy with biopsy completed Not Available Health Note 03/09/2024 12:07:18 Total hip arthroplasty completed Not Available Health Note 03/09/2024 12:07:18 Total knee arthroplasty completed Not Available Health Note 03/09/2024 12:07:18 Imaging Results Imaging Date Name Status LastModified by [facility] Details LastModified Time 05/03/2023 imaging/diag nostic result completed [email or web address] Information not available 03/06/2024 04:13:21 09/21/2022 imaging/diag nostic result completed [email or web address] Information not available 04/06/2024 06:24:43 09/22/2022 imaging/diag nostic result completed Information not available 04/06/2024 06:24:46 12/05/2022 imaging/diag nostic result completed Information not available 04/06/2024 06:24:57 12/05/2022 imaging/diag nostic result completed Information not available 04/06/2024 06:24:59 01/15/2023 imaging/diag nostic result completed Information not available 04/06/2024 06:25:17 02/06/2023 imaging/diag nostic result completed Information not available 04/06/2024 06:25:18 02/06/2023 imaging/diag nostic result completed Information not available 04/06/2024 06:25:20 08/06/2023 imaging/diag nostic result completed Information not available 06/20/2024 22:53:35 08/07/2023 imaging/diag nostic result completed Information not available 06/20/2024 22:53:36 Procedure Notes None recorded. Medical Equipment None Reported. Allergies No known drug allergies Medications Name Sig Start Date Stop Date Status Note LastModified by Organization Details LastModified Time Prescript ion - New active Pharmaceutical Laboratory Technician: SOO SR ([facility] Pulmonar y Medicine [...] e Micro Pen Needle 32 gauge x 1/4 active Not Available Not Available Not Available [...] Vitals Date Recorded Body height Heart rate Oxygen saturation Oxygen saturation in Arterial blood by Pulse oximetry Systolic blood pressure Diastolic blood pressure Provider Name and Address Organization Details Last Updated DateTime 167.64 cm 77 /min 99 % 99 % 120 mm[Hg] 72 mm[Hg] Leatha Deluna [facility] 4 11:55:08 Date Recorded Body height Heart rate Systolic blood pressure Diastolic blood pressure Provider Name and Address Organization Details Last Updated DateTime 06/15/2024 167.64 cm 91 /min 106 mm[Hg] 54 mm[Hg] Cristiano Mora [facility] 06/15/2024 11:30:13 Social History Question Answer Notes LastModified by Organizat ion Details LastModified Time Do You Have An [...] Do You Have A Medical Power Of Program Development Specialist? No [email or web address] Information not available 03/09/2024 What Was The Date Of Your Most Recent Tobacco Screening? 03/16/2024 [email or web address] Information not available 03/09/2024 What Is Your Relationship Status? [email or web address] Information not available 03/09/2024 Do You Use Any Illicit Or Recreational Drugs? No [email or web address] Information not available 03/09/2024 Sex: Unknown Functional Status Question Answer Note LastModified by Organizat ion Details LastModified Time What is your exercise [...] SNOMED-CT Code Diagnosis ICD10 Code Diagnosis Note [id number] Katina Beltran MD [facility] ([place]) [address] [place] [address] 03/16/2024 11:28:49 03/16/2024 12:18:20 Chronic kidney disease stage 3A 116079711 N18.31 Decreased renal function 92263534 R94.4 Hyperkalemia 12425452 E8 7.5 Renal mass 280158238 N28 .89 Vitamin D deficiency 347 43486 E55.9 [id number] Theresa Sheriff PA-C [facility] ([place]) [address] [place] [address] 06/15/2024 11:12:17 06/15/2024 11:50:06 Chronic kidney disease stage 3A 831866606 N18.31 Health Concerns Section Related Observation LastModified by Organization Detai ls LastModified Time None Recorded Concern Status LastModified by Organization Details LastModified Time None Recorded Advance Directives Directive N: Payers Encounter Date Sequence Insurance Name Policy Number Policy Vicente Covered Member ID Vicente Member ID Guarantor Name 03/16/2024 1 [place] Mendez Lay [id number] 1 Mendez Lay 06/15/2024 1 [place] Mendez Lay [id number] 1 Mendez Lay Notes Date Note Type Note Provider Name and Address Organization Details Recorded Time 03/16/2024 text/html Mr. Lay is a pleasant 68-year-old [...] serum creatinine level has been between 1.3-1.5. He denies having any chest pain, shortness breath or palpitation Denies having any dysuria, hematuria or symptoms of UTI Blood pressure in the office today is 120/72 and a heart rate of 77 Denies having any nausea, vomiting or diarrhea Denies having any lightheadedness or dizziness He denies having any worsening lower extremity edema he recent foot infection is currently on Levaquin therapy. Katina Beltran MD [address] [place] [place] [address], [phone], [facility] 03/16/2024 12:17:49 06/15/2024 text/html Mr. Lay is a pleasant [...] doing okay. Theresa Sheriff PA-C [address] [place] [place] [address], [phone], [facility] 06/15/2024 17:23:12
--- OUTSIDE RECORDS SUMMARY | 2024-09-03 20:09 | XMS_ITS ---
Author Organization [facility] Address [address] [place], [place] [id number] Care Team Providers Care Rail Operations Controller Name Role Phone DonalRONALD baltazar Unavailable [phone] Megan Infante Unavailable Unavailable KARLA GUNN Unavailable [phone] REASON FOR VISIT *General care Medications Medication SIG (Take, Route, Frequency, Duration) Notes Start Date End Date Status warfarin sodium 2 MG Oral Tablet [Coumadin] ORAL warfarin sodium 2 MG Oral Tablet [Coumadin]Original Medicationwarfarin sodium 2 MG Oral Tablet [Coumadin] *Reorder from [facility] for eRx and Interaction Alerts* 09/10/2014 Active dofetilide 0.125 MG Oral Capsule [Tikosyn] ORAL dofetilide 0.125 MG Oral Capsule [Tikosyn]Original Medicationdofetilide 0.125 MG Oral Capsule [Tikosyn] *Reorder from [facility] for eRx and Interaction Alerts* 09/10/2014 Active glipiZIDE 5 MG Oral Tablet ORAL glipizide 5 MG Oral TabletOriginal Medicationglipizide 5 MG Oral Tablet *Reorder from [facility] for eRx and Interaction Alerts* 09/10/2014 Active Encounters Encounter Location Date Provider Diagnosis [facility] [address] [place], [place] [id number] 04/13/2024 KARLA GUNN Tinea unguium B35.1 ; Pain in right toe(s) M79.674 ; Pain in left toe(s) M79.675 ; Unspecified atherosclerosis of [place] arteries of extremities, bilateral legs I70.203 ; Xerosis cutis L85.3 and Type 2 diabetes mellitus with diabetic peripheral angiopathy without gangrene E11.51 Assessments Encounter Date Diagnosis (ICD Code) Assessment Notes Treatment Notes Treatment Clinical Notes Section Notes 04/13/2024 Tinea unguium (ICD-10 - B35.1) Aseptic debridement [...] educated regarding both OTC and prescription treatments. 04/13/2024 Pain in right toe(s) (ICD-10 - M79.674) 04/13/2024 Pain in left toe(s) (ICD-10 - M79.675) 04/13/2024 Unspecified atherosclerosis of [place] arteries of extremities, bilateral legs (ICD-10 - I70.203) Patient educated on risks and aggravating factors of PVD, including conservative treatment options such as a diet and exercise regimen to aid in slowing progression of vascular disease 04/13/2024 Xerosis cutis (ICD-10 - L85.3) The patient was educated regarding proper hydration of their feet/ankles and the patient was given several recommendations for proper creams to protect/hydrate and keep the area healthy. Continue with use of lotion to be applied to feet daily. 04/13/2024 Type 2 diabetes mellitus with diabetic peripheral [...] to nausea, vomiting, fever. Plan Of Treatment Treatment Notes Assessment Notes Tinea unguium Aseptic [...] OTC and prescription treatments. Unspecified atherosclerosis of [place] arteries of extremities, bilateral legs Patient educated [...] Reason: Provider Name:KARLA GUNN, 09/07/2024 02:10:00 PM, [address] [place] [address], [phone], Progress Notes * OBIE SIMS RDOB:1955 (68 yo M)Acc No.[id number]:04/13/2024 Patient:?OBIE SIMS Provider:?KARLA GUNN :1955???Age:68 Y???Sex:Male Stevenson e:04/13/2024 Address:[address] [place], [place] [phone] Subjective: * Chief Complaints: * ???1. *General care. * HPI: ???HPI:?General care?Patient presents to the office for diabetic foot care. Patient states that their nails are thickened, elongated and painful. Patient states that it is aggravated by shoe gear. Onset is gradual., Patient is taking prescription blood thinners., Date last seen by Dr. Infante was 02/2024., Initials [facility].? * ROS:?General / Constitutional:?Patient denies?weakness.?Respiratory:?Patient denies?chronic cough, shortness of breath, sputum production.?Cardiovascular:?Patient denies?chest pain, history of [place], irregular heartbeat.?Musculoskeletal:?Patient denies?arthritis, joint stiffness.?Peripheral Vascular:?Patient denies?blanching of skin, cold extremities, decreased sensation in extremities.?Skin:?Patient complains of?fungal nails, discoloration, dry skin, nail changes.?Neurologic:?Patient denies?dizziness, gait abnormality, headache.? * Medical History:? * Medications:?Taking glipiZID E 5 MG Oral Tablet ORAL , Notes to Pharmacist: glipizide 5 MG Oral TabletOriginal Medicationglipizide 5 MG Oral Tablet *Reorder from [facility] for eRx and Interaction Alerts*, Taking dofetilide 0.125 MG Oral Capsule [Tikosyn] ORAL , Notes to Pharmacist: dofetilide 0.125 MG Oral Capsule [Tikosyn]Original Medicationdofetilide 0.125 MG Oral Capsule [Tikosyn] *Reorder from [facility] for eRx and Interaction Alerts*, Taking warfarin sodium 2 MG Oral Tablet [Coumadin] ORAL , Notes to Pharmacist: warfarin sodium 2 MG Oral Tablet [Coumadin]Original Medicationwarfarin sodium 2 MG Oral Tablet [Coumadin] *Reorder from [facility] for eRx and Interaction Alerts* Objective: * Examination: ???Physical Examination: ???Vascular: Dorsalis Pedis [...] bilateral foot and no varicosities are noted ?Dermatologic: there are no open lesions, no signs of active clinical infection, no erythema noted, no ecchymoses, nails are elongated thickened and dystrophic with subungual debris x ten, diffuse plantar xerosis noted to bilateral foot with no signs of annular scaling noted ?Musculoskeletal: there is pain to palpation onto nail plate x ten, no calf pain noted bilaterally, arch height noted at 2/5 non-weight bearing bilaterally, first metatarsophalangeal joint range of motion 30 deg non-weight bearing bilaterally ?Neurology: protective sensation intact to light touch bilateral digits one through five, vibratory sensation intact to first metatarsophalangeal joint bilaterally. 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 Plan: * Treatment: 2.?Unspecified atheroscleros is of [place] arteries of extremities, bilateral legs? Notes: Patient [...] not limited to nausea, vomiting, fever. ?? * Procedure Codes:?35454 DEBRI DE NAIL, 6 OR MORE, Modifiers: Q8 * Follow Up:?3 Months * Billing Information: * Visit Code:? * Procedure Codes:? 77990 DEBRIDE NAIL, 6 OR MORE. Modifiers: Q8 * Sign off status: Completed true * Provider:DOMENICO GUNN Date:?04/13/2024 Generated for Katiana watson/Kaitlyn/Mindy on:?09/03/2024 08:26 AM COMPRESS MACHINE OPERATOR History and Physical Notes * HPI (History [...] Date last seen by Dr. Infante was 02/2024., Initials [facility] Examination Category Sub-Category Detail Notes Category Not [...]
--- OUTSIDE RECORDS SUMMARY | 2024-09-03 20:09 | XMS_ITS | Patient Health Record ---
Author Organization [facility] Address [address] [place], [place] [address] Care Team Providers Care Trauma Nurse Name Role Phone DonalRONALD baltazar Unavailable [phone] Megan Infante Unavailable Unavailable KARLA GUNN Unavailable [phone] Allergies No Known Allergies Reason For Referral No Information Medications Medication SIG (Take, Route, Frequency, Duration) Notes Start Date End Date Status Clotrimazole-Bet amethasone 1-0.05 % 1 application Externally Twice a day 07/06/2024 Active dofetilide 0.125 MG Oral Capsule [Tikosyn] ORAL dofetilide 0.125 MG Oral Capsule [Tikosyn]Original Medicationdofetilide 0.125 MG Oral Capsule [Tikosyn] *Reorder from [employer] for eRx and Interaction Alerts* 09/10/2014 Active warfarin sodium 2 MG Oral Tablet [Coumadin] ORAL warfarin sodium 2 MG Oral Tablet [Coumadin]Original Medicationwarfarin sodium 2 MG Oral Tablet [Coumadin] *Reorder from [employer] for eRx and Interaction Alerts* 09/10/2014 Active glipiZIDE 5 MG Oral Tablet ORAL glipizide 5 MG Oral TabletOriginal Medicationglipizide 5 MG Oral Tablet *Reorder from [employer] for eRx and Interaction Alerts* 09/10/2014 Active Immunizations Vaccine Route Administration Date Status Comme nts Influenza, high dose seasonal Unknown 06/04/2023 Admini stered Vital Signs Height-cm 167.64 cm 01/13/2024 Weight-kg 90.72 kg 01/13/2024 Height 66.00 in 01/13/2024 Weight 200 lbs 01/13/2024 BMI 32.28 kg/m2 01/13/2024 Encounters Encounter Location Date Provider Diagnosis [address] [id number] 10/28/2023 KARLA GUNN Tinea unguium B35.1 ; Pain in right toe(s) M79.674 ; Pain in left toe(s) M79.675 ; Unspecified atherosclerosis of [place] arteries of extremities, bilateral legs I70.203 ; Xerosis cutis L85.3 and Type 2 diabetes mellitus with diabetic peripheral angiopathy without gangrene E11.[address] [id number] 01/13/2024 KARLAPARESH GUNN Tinea unguium B35.1 ; Pain in right toe(s) M79.674 ; Pain in left toe(s) M79.675 ; Unspecified atherosclerosis of wainwright arteries of extremities, bilateral legs I70.203 ; Xerosis cutis L85.3 and Type 2 diabetes mellitus with diabetic peripheral angiopathy without gangrene E11.[address] [id number] 04/13/2024 KARLA GUNN Tinea unguium B35.1 ; Pain in right toe(s) M79.674 ; Pain in left toe(s) M79.675 ; Unspecified atherosclerosis of wainwright arteries of extremities, bilateral legs I70.203 ; Xerosis cutis L85.3 and Type 2 diabetes mellitus with diabetic peripheral angiopathy without gangrene E11.[address] [id number] 07/06/2024 KARLA DAVKAITOV Tinea unguium B35.1 ; Pain in right toe(s) M79.674 ; Pain in left toe(s) M79.675 ; Unspecified atherosclerosis of wainwright arteries of extremities, bilateral legs I70.203 ; Xerosis cutis L85.3 and Type 2 diabetes mellitus with diabetic peripheral angiopathy without gangrene E11.51 Assessments Encounter Date Diagnosis (ICD Code) Assessment Notes Treatment Notes Treatment Clinical Notes Section Notes 10/28/2023 Tinea unguium (ICD-10 - B35.1) Aseptic debridement [...] educated regarding both OTC and prescription treatments. 10/28/2023 Pain in right toe(s) (ICD-10 - M79.674) 01/13/2024 Tinea unguium (ICD-10 - B35.1) Aseptic debridement [...] educated regarding both OTC and prescription treatments. 01/13/2024 Pain in right toe(s) (ICD-10 - M79.674) 04/13/2024 Tinea unguium (ICD-10 - B35.1) Aseptic [...] in right toe(s) (ICD-10 - M79.674) 07/06/2024 Tinea unguium (ICD-10 - B35.1) Aseptic [...] in left toe(s) (ICD-10 - M79.675) 04/13/2024 Pain in left toe(s) (ICD-10 - M79.675) 01/13/2024 Pain in left toe(s) (ICD-10 - M79.675) 10/28/2023 Pain in left toe(s) (ICD-10 - M79.675) 10/28/2023 Unspecified atherosclerosis of wainwright arteries of extremities, bilateral legs (ICD-10 - I70.203) Patient educated on risks and aggravating factors of PVD, including conservative treatment options such as a diet and exercise regimen to aid in slowing progression of vascular disease 01/13/2024 Unspecified atherosclerosis of wainwright arteries of extremities, bilateral legs (ICD-10 - I70.203) Patient educated on risks and aggravating factors of PVD, including conservative treatment options such as a diet and exercise regimen to aid in slowing progression of vascular disease 04/13/2024 Unspecified atherosclerosis of wainwright arteries of extremities, bilateral legs (ICD-10 - I70.203) Patient educated on risks and aggravating factors of PVD, including conservative treatment options such as a diet and exercise regimen to aid in slowing progression of vascular disease 07/06/2024 Unspecified atherosclerosis of wainwright arteries of extremities, bilateral legs (ICD-10 - [...] to be applied to feet daily. 04/13/2024 Xerosis cutis (ICD-10 - L85.3) The patient was educated regarding proper hydration of their feet/ankles and the patient was given several recommendations for proper creams to protect/hydrate and keep the area healthy. Continue with use of lotion to be applied to feet daily. 01/13/2024 Xerosis cutis (ICD-10 - L85.3) The patient was educated regarding proper hydration of their feet/ankles and the patient was given several recommendations for proper creams to protect/hydrate and keep the area healthy. Continue with use of lotion to be applied to feet daily. 10/28/2023 Xerosis cutis (ICD-10 - L85.3) The patient was educated regarding proper hydration of their feet/ankles and the patient was given several recommendations for proper creams to protect/hydrate and keep the area healthy. Continue with use of lotion to be applied to feet daily. 10/28/2023 Type 2 diabetes mellitus with diabetic peripheral [...] but not limited to nausea, vomiting, fever. 01/13/2024 Type 2 diabetes mellitus with diabetic peripheral [...] but not limited to nausea, vomiting, fever. 04/13/2024 Type 2 diabetes mellitus with diabetic [...] but not limited to nausea, vomiting, fever. 07/06/2024 Type 2 diabetes mellitus with diabetic [...] to nausea, vomiting, fever. Plan Of Treatment Next Appt Details Provider Name:KARLA GUNN, 09/07/2024 02:10:00 PM, [address] [place] [address], [phone], Insurance Providers Payer Name Payer Address Payer Phone Subscriber Number Group Number Insured Name Patient Relationship to Insured Coverage Start Date Coverage End Date [employer] [address] [place] [phone] [id number] OBIE SIMS Self - patient is the insured [employer] [place] [address] [place] [id number] OBIE SIMS Self - patient is the insured
--- OUTSIDE RECORDS SUMMARY | 2024-09-03 20:34 | XMS_ITS | Clinical Summary ---
Author Organization [facility] Address [facility]6 [facility] [place] [place] [address] [place] [address] Care Team Providers Care Aircraft Fuselage Framer Name Role Phone Megan Infante MD Primary Care Provider [phone] Zaki Ortiz MD Unavailable [phone] Concetta Acevedo MD Unavailable + [phone] Jeff Grace MD Unavailable Brit Gonzáles MD [...] Date Chronic venous insufficiency 04/17/2024 CHF exacerbation ([facility]) 07/12/2023 Rib fractures 02/06/2023 NSTEMI (non-ST elevated myoc ardial infarction) ([facility]) 02/01/2022 Elevated troponin 02/01/2022 Elevated brain natriuretic peptide (BNP) level 0 02/01/2022 Fall 02/01/2022 Other closed fracture of dis kaity end of right fibula with routine healing, subsequent encounter 01/29/2022 Leg edema 12/09/2021 Mild persistent asthma without complication ([facility]) 04/06/2021 Asymptomatic carotid artery stenosis, bilateral 11/26/2020 Obstructive sleep apnea (adult) (pediatric) 10/21 Pulmonary hypertension ([facility]) 021 TIA (transient ischemic attack) 09/03/2020 Pain in both lower extremities 03/07/2019 Chronic atrial fibrillation ([facility]) Chronic anticoagulation 02/15/2017 Abnormal finding on lung [...] hypertension Mixed hyperlipidemia Diabetes mellitus, type II ([facility]) Coronary artery disease invo lving morongo coronary artery of morongo heart without angina pectoris COPD (chronic obstructive pu lmonary disease) (CMS/HCC HHS/HCC) Carotid disease, bilateral Arthritis Aortic stenosis Varicose veins of bilateral lower extremities with other complications Abnormal ankle brachial index (STELLA) Claudication CHF (congestive heart failure) ([facility]/HCC HHS/HCC) 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 (CMS/HCC HHS/HCC) Non-pressure chronic ulcer o f left calf limited to breakdown of skin (CMS/HCC HHS/HCC) Resolved Problems Problem Noted Date Diagnosed Date Resolved Date Encounter for preventive health examination 02/06/2014 05/03/2020 PAD (peripheral artery disease) 04/11/2019 Encounters Date Type Department Care Team Description 08/31/2024 8:49 AM PUBLICATIONS MANAGER - Present Hospital Encounter [facility] [address] [place] [address] Chidi Umanzor MD Jabeen, Sayeeda A, MD 08/31/2024 Travel 08/24/2024 1:15 PM PUBLICATIONS MANAGER Office Visit [facility] [address] [place] [address] Arnold Hernandez MD New Patient (Ventral hernia) 08/24/2024 Travel 08/14/2024 2:10 PM PUBLICATIONS MANAGER - 08/14/2024 11:59 PM PUBLICATIONS MANAGER Hospital Encounter [facility] [address] [place] [address] Zayra Powell FNP Discharge Disposition: Home or Self Care (Routine Discharge) 08/14/2024 Travel 08/08/2024 1:52 PM PUBLICATIONS MANAGER - 08/08/2024 11:59 PM PUBLICATIONS MANAGER Hospital Encounter [facility] [address] [place] [address] Zayra Powell FNP Discharge Disposition: Home or Self Care (Routine Discharge) 08/08/2024 Travel 07/31/2024 3:15 PM PUBLICATIONS MANAGER - 08/03/2024 1:08 PM PUBLICATIONS MANAGER Hospital Encounter [facility] [address] [place] [address] Jena Schilling MD Fisher, Amy E, MD [...] pur e alcohol) 4 beers per week [facility] [employer] Answer Date Recorded In the past 12 months has [employer], [employer], oil, or water [employer] threatened to shut off services in your [...] How often do you attend alevism or orthodoxy serv ices? Patient declined 02/16/2023 [...] move on to questions 3-9 0 12/01/2021 [facility] - Occupational Stress [...] senior living (including now)? Patient declined 07/12/2023 Housing Stability [...] any time in the past 12 m [facility], were you homeless or living in a senior living (including now)? No 08/31/2024 Sex and Gender [...] Sign Reading Time Taken Comments Blood Pressure 156/92 09/03/2024 8:11 PM PUBLICATIONS MANAGER Pulse 108 09/03/2024 8:11 PM PUBLICATIONS MANAGER Temperature 36.7 ??C (98.1 ??F) 09/03/2024 4:05 PM CS T Respiratory Rate 23 09/03/2024 4:05 PM PUBLICATIONS MANAGER Oxygen Saturation 89% 09/03/2024 8:11 PM PUBLICATIONS MANAGER Inhaled Oxygen Concentration - - Weight 95.3 kg (210 lb 1.6 oz) 09/03/2024 4:23 A M PUBLICATIONS MANAGER Height 167.6 cm (5' 6 ) 08/31/2024 9:47 AM PUBLICATIONS MANAGER Body Mass Index 33.91 08/31/2024 9:47 AM PUBLICATIONS MANAGER Plan of Treatment Upcoming Encounters Date Type Department Care Team (Late st Contact Info) Description 09/25/2024 2:00 PM PUBLICATIONS MANAGER Appointment [facility] [address] [place] [address] Zayra Powell, PRODUCTION METAL SPRAYER [address] [place] [address] 10/16/2024 3:30 PM PUBLICATIONS MANAGER Office Visit [facility] [place] [place] [address] [place] [phone] Brit Gonzáles MD [address] [place] [address] Health Maintenance Due Date Last Done Comments [...] Priority Date/Time Associated Diagnosis Comments ECG 12-LEAD STAT 09/03/2024 8:13 PM PUBLICATIONS MANAGER Procedure Note - 09/03/2024 8:13 PM CSTThis note is in progress. [facility] [address] [place] [address] Test Date: 2024-09-03 Pat Name: OBIE SIMS Department: 1 Room: [facility] Gender: Male [place]lexiglas Former: Hans Santiago : 1955 Requested By: NIKOLAS BABCOCK Order Number: [id number] Reading MD: Measurements Intervals [place] Rate: 101 P: NE: 0 QRS: -46 QRSD: 146 T: 132 QT: 360 QTc: 467 Interpretive Statements ATRIAL FIBRILLATION WITH RAPID VENTRICULAR RESPONSE WITH ABERRANTCONDUCTION OR VENTRICULAR PREMATURE COMPLEXES LEFT AXIS DEVIATION [QRS AXIS < -30] LEFT BUNDLE BRANCH BLOCK [120+ ms QRS DURATION, 80+ ms Q/S IN V1/V2, 85+ms R IN I/aVL/V5/V6] POCT GLUCOSE - VALLECILLO DOCKED DEVICE Routine 09/03/2024 8:04 PM PUBLICATIONS MANAGER POCT GLUCOSE - VALLECILLO DOCKED DEVICE Routine 09/03/2024 5:22 PM PUBLICATIONS MANAGER POCT GLUCOSE - VALLECILLO DOCKED DEVICE Routine 09/03/2024 4:03 PM PUBLICATIONS MANAGER CULTURE, BACTERIA, BLOOD Routine 09/03/2024 12:23 PM PUBLICATIONS MANAGER POCT GLUCOSE - VALLECILLO DOCKED DEVICE Routine 09/03/2024 10:55 AM PUBLICATIONS MANAGER XR CHEST PORTABLE Today 09/03/2024 9:35 AM PUBLICATIONS MANAGER BLOOD GAS, ARTERIAL LAB Routine 09/03/2024 9:09 AM PUBLICATIONS MANAGER COMPREHENSIVE METABOLIC PANEL Routine 09/03/2024 5:06 AM PUBLICATIONS MANAGER PROTHROMBIN TIME, VENOUS Routine 09/03/2024 5:06 AM PUBLICATIONS MANAGER CBC W/DIFF AUTOMATED Routine 09/03/2024 5:06 AM PUBLICATIONS MANAGER POCT GLUCOSE - VALLECILLO DOCKED DEVICE Routine 09/03/2024 4:44 AM PUBLICATIONS MANAGER RENAL FUNCTION PANEL Routine 09/02/2024 11:25 PM PUBLICATIONS MANAGER POCT GLUCOSE - VALLECILLO DOCKED DEVICE Routine 09/02/2024 8:47 PM PUBLICATIONS MANAGER POCT GLUCOSE - VALLECILLO DOCKED DEVICE Routine 09/02/2024 4:07 PM PUBLICATIONS MANAGER POCT GLUCOSE - VALLECILLO DOCKED DEVICE Routine 09/02/2024 11:56 AM PUBLICATIONS MANAGER COMPREHENSIVE METABOLIC PANEL Routine 09/02/2024 7:41 AM PUBLICATIONS MANAGER PROTHROMBIN TIME, VENOUS Routine 09/02/2024 7:41 AM PUBLICATIONS MANAGER CBC W/DIFF AUTOMATED Routine 09/02/2024 7:41 AM PUBLICATIONS MANAGER POCT GLUCOSE - VALLECILLO DOCKED DEVICE Routine 09/02/2024 6:26 AM PUBLICATIONS MANAGER POCT GLUCOSE - VALLECILLO DOCKED DEVICE Routine 09/02/2024 12:59 AM PUBLICATIONS MANAGER RENAL FUNCTION PANEL Routine 09/02/2024 12:30 AM PUBLICATIONS MANAGER POCT GLUCOSE - VALLECILLO DOCKED DEVICE Routine 09/01/2024 9:07 PM PUBLICATIONS MANAGER POCT GLUCOSE - VALLECILLO DOCKED DEVICE Routine 09/01/2024 4:14 PM PUBLICATIONS MANAGER POCT GLUCOSE - VALLECILLO DOCKED DEVICE Routine 09/01/2024 11:42 AM PUBLICATIONS MANAGER URINE BACTERIA CULTURE Nurse Collected Priority 09/01/2024 11:10 AM PUBLICATIONS MANAGER XR SPEECH SWALLOW SJS ONLY Routine 09/01/2024 9:59 AM PUBLICATIONS MANAGER THYROID STIM HORMONE TSH Routine 09/01/2024 8:19 AM PUBLICATIONS MANAGER HEMOGLOBIN, GLYCOSYLATED Routine 09/01/2024 8:19 AM PUBLICATIONS MANAGER MAGNESIUM Routine 09/01/2024 8:19 AM PUBLICATIONS MANAGER COMPREHENSIVE METABOLIC PANEL Routine 09/01/2024 8:19 AM PUBLICATIONS MANAGER PROTHROMBIN TIME, VENOUS Routine 09/01/2024 8:19 AM PUBLICATIONS MANAGER CBC W/DIFF AUTOMATED Routine 09/01/2024 8:19 AM PUBLICATIONS MANAGER POCT GLUCOSE - VALLECILLO DOCKED DEVICE Routine 09/01/2024 6:41 AM PUBLICATIONS MANAGER POCT GLUCOSE - VALLECILLO DOCKED DEVICE Routine 09/01/2024 12:55 AM PUBLICATIONS MANAGER US RETROPERITONEAL LTD Today 08/31/2024 10:20 PM PUBLICATIONS MANAGER POCT GLUCOSE - VALLECILLO DOCKED DEVICE Routine 08/31/2024 6:34 PM PUBLICATIONS MANAGER CREATININE URINE RANDOM Nurse Collected Priority 08/31/2024 5:12 PM PUBLICATIONS MANAGER SODIUM URINE RANDOM Nurse Collected Priority 08/31/2024 5:12 PM PUBLICATIONS MANAGER HC URINALYSIS AUTO W/MICRO Nurse Collected Priority 08/31/2024 5:12 PM PUBLICATIONS MANAGER USE ECHOCARDIOGRAM W CON Today 08/31/2024 2:02 PM PUBLICATIONS MANAGER POCT GLUCOSE - VALLECILLO DOCKED DEVICE Routine 08/31/2024 1:02 PM PUBLICATIONS MANAGER ECG 12-LEAD Routine 08/31/2024 12:13 PM PUBLICATIONS MANAGER CK (CPK) Routine 08/31/2024 10:35 AM PUBLICATIONS MANAGER PROTHROMBIN TIME, VENOUS Routine 08/31/2024 10:35 AM PUBLICATIONS MANAGER PRO-BRAIN NATRIURETIC PEPTIDE Routine 08/31/2024 10:35 AM PUBLICATIONS MANAGER COMPREHENSIVE METABOLIC PANEL STAT 08/31/2024 10:35 AM PUBLICATIONS MANAGER CBC W/DIFF AUTOMATED STAT 08/31/2024 10:35 AM PUBLICATIONS MANAGER CULTURE, BACTERIA, BLOOD Routine 08/31/2024 10:34 AM PUBLICATIONS MANAGER XR CHEST PORTABLE Today 08/31/2024 10:16 AM PUBLICATIONS MANAGER POCT GLUCOSE - VALLECILLO DOCKED DEVICE Routine 08/31/2024 8:56 AM PUBLICATIONS MANAGER POCT GLUCOSE - VALLECILLO DOCKED DEVICE Routine 08/03/2024 11:14 AM PUBLICATIONS MANAGER POCT GLUCOSE - VALLECILLO DOCKED DEVICE Routine 08/03/2024 6:56 AM PUBLICATIONS MANAGER POCT GLUCOSE - VALLECILLO DOCKED DEVICE Routine 08/03/2024 6:40 AM PUBLICATIONS MANAGER POCT GLUCOSE - VALLECILLO DOCKED DEVICE Routine 08/03/2024 6:19 AM PUBLICATIONS MANAGER COMPREHENSIVE METABOLIC PANEL Routine 08/03/2024 5:46 AM PUBLICATIONS MANAGER CBC W/DIFF AUTOMATED Routine 08/03/2024 5:46 AM PUBLICATIONS MANAGER PROTHROMBIN TIME, VENOUS Routine 08/03/2024 5:46 AM PUBLICATIONS MANAGER POCT GLUCOSE - VALLECILLO DOCKED DEVICE Routine 08/02/2024 8:14 PM PUBLICATIONS MANAGER POCT GLUCOSE - VALLECILLO DOCKED DEVICE Routine 08/02/2024 4:10 PM PUBLICATIONS MANAGER POCT GLUCOSE - VALLECILLO DOCKED DEVICE Routine 08/02/2024 10:59 AM PUBLICATIONS MANAGER POCT GLUCOSE - VALLECILLO DOCKED DEVICE Routine 08/02/2024 6:20 AM PUBLICATIONS MANAGER COMPREHENSIVE METABOLIC PANEL Routine 08/02/2024 5:13 AM PUBLICATIONS MANAGER CBC W/DIFF AUTOMATED Routine 08/02/2024 5:13 AM PUBLICATIONS MANAGER PROTHROMBIN TIME, VENOUS Routine 08/02/2024 5:13 AM PUBLICATIONS MANAGER POCT GLUCOSE - VALLECILLO DOCKED DEVICE Routine 08/01/2024 8:50 PM PUBLICATIONS MANAGER POCT GLUCOSE - VALLECILLO DOCKED DEVICE Routine 08/01/2024 6:28 PM PUBLICATIONS MANAGER POCT GLUCOSE - VALLECILLO DOCKED DEVICE Routine 08/01/2024 5:09 PM PUBLICATIONS MANAGER POCT GLUCOSE - VALLECILLO DOCKED DEVICE Routine 08/01/2024 11:53 AM PUBLICATIONS MANAGER POCT GLUCOSE - VALLECILLO DOCKED DEVICE Routine 08/01/2024 7:39 AM PUBLICATIONS MANAGER POCT GLUCOSE - VALLECILLO DOCKED DEVICE Routine 08/01/2024 6:56 AM PUBLICATIONS MANAGER POCT GLUCOSE - VALLECILLO DOCKED DEVICE Routine 08/01/2024 6:35 AM PUBLICATIONS MANAGER PROTHROMBIN TIME, VENOUS STAT 08/01/2024 5:24 AM PUBLICATIONS MANAGER BASIC METABOLIC PANEL Routine 08/01/2024 5:24 AM PUBLICATIONS MANAGER CBC W/DIFF AUTOMATED STAT 08/01/2024 5:24 AM PUBLICATIONS MANAGER POCT GLUCOSE - VALLECILLO DOCKED DEVICE Routine 07/31/2024 8:41 PM PUBLICATIONS MANAGER POCT GLUCOSE - VALLECILLO DOCKED DEVICE Routine 07/31/2024 6:13 PM PUBLICATIONS MANAGER URINE BACTERIA CULTURE STAT 07/31/2024 4:57 PM PUBLICATIONS MANAGER HC URINALYSIS AUTO W/MICRO STAT 07/31/2024 4:57 PM PUBLICATIONS MANAGER XR CHEST PORTABLE STAT 07/31/2024 3:55 PM PUBLICATIONS MANAGER CULTURE, BACTERIA, BLOOD STAT 07/31/2024 3:43 PM PUBLICATIONS MANAGER PRO-BRAIN NATRIURETIC PEPTIDE STAT 07/31/2024 3:36 PM PUBLICATIONS MANAGER MAGNESIUM STAT 07/31/2024 3:36 PM PUBLICATIONS MANAGER LACTIC ACID W REFLEX (SEPSIS) STAT 07/31/2024 3:36 PM PUBLICATIONS MANAGER TROPONIN, QUANT STAT 07/31/2024 3:36 PM PUBLICATIONS MANAGER COMPREHENSIVE METABOLIC PANEL STAT 07/31/2024 3:36 PM PUBLICATIONS MANAGER PROTHROMBIN TIME, VENOUS STAT 07/31/2024 3:36 PM PUBLICATIONS MANAGER CBC W/DIFF AUTOMATED STAT 07/31/2024 3:36 PM PUBLICATIONS MANAGER ECG 12-LEAD Routine 07/31/2024 3:[address] ABD+PEL WO CON STAT 11/17/2023 3:08 PM CDT Rt flank pain HEPATITIS C ANTIBODY Routine 12/24/2022 3:05 PM CDT Decreased GFR LIPID PANEL Routine 02/01/2022 11:27 AM CDT COLONOSCOPY 01/27/2022 6:48 AM CDT from Last 3 Months or Most Recently Relevant to Health Maintenance Results * (ABNORMAL) POCT glucose (09/03/2024 8:04 PM PUBLICATIONS MANAGER) Only the most recent of35 resultswithin the time period is included. GLUCOSE POC 367(H) 70 - 109 09/03/2024 8:05 PM PUBLICATIONS MANAGER [facility] 09/03/2024 8:04 PM PUBLICATIONS MANAGER us Eduar Lindsay MD POCT ORDERABLES - DEVICE Fin al Result [facility] [address] [place] [address], [place] [phone] [id number] * XR CHEST PORTABLE (09/03/2024 9:35 AM PUBLICATIONS MANAGER) Only the most recent of3 resultswithin the time period is included. Anatomical Region Laterality Modality Chest Radiographic Stephie ging 09/03/2024 9:54 AM PUBLICATIONS MANAGER Impressions 09/03/2024 9:54 AM PUBLICATIONS MANAGER IMPRESSION: Persistent bilateral alveolar and interstitial opacification concerning for pneumonia or pulmonary edema. Slight improvement as compared to August 31. Referred By: PROVIDER NON-STAFF Interpreted By: Klever Edwards MD, 09/03/2024 9:54 AM Narrative 09/03/2024 9:54 AM PUBLICATIONS MANAGER [address] [address] Procedure(s): XR CHEST PORTABLE Date of service: [...] Procedure Note Klever Edwards MD - 09/03/[address] [address] Procedure(s): XR CHEST PORTABLE Date of service: [...] By: Klever Edwards MD, 09/03/2024 9:54 AM Marlin Pena ASSISTANT DESIGNER GENERAL IMAGING Final Re sult * (ABNORMAL) ARTERIAL BLOOD GAS (09/03/2024 9:09 AM PUBLICATIONS MANAGER) PH ARTERIAL 7.34(L) 7.35 - 7.45 09/03/2024 9:17 AM [facility] PCO2 51.3(H) 35.0 - 45.0 MMHG 09/03/2024 9:17 AM [facility] PO2 78.7(L) 83.0 - 108.0 MMHG 09/03/2024 9:17 AM [facility] BICARB ARTERIAL 27.1(H) 22 - 26 MMOL/L 09/03/2024 9:17 AM [facility] TOTAL CO2 CAPILLARY 28.7(H) 23 - 27 MMOL/L 09/03/2024 9:17 AM [facility] BE/BASE EXCESS 1.1 0 - 2 MMOL/L 09/03/2024 9:17 AM [facility] O2 Saturation 94(L) 95 - 98 % 09/03/2024 9:17 AM [facility] HEATHER TEST POSITIVE 09/03/2024 9:09 AM [facility] OXYGEN STATUS NASAL CANULA 9:09 AM PUBLICATIONS MANAGER [facility] DRAW SITE ARTERIAL LT RADIAL 09/03/2024 9:09 AM PUBLICATIONS MANAGER [facility] 09/03/2024 9:09 AM PUBLICATIONS MANAGER Marlin Pena ASSISTANT DESIGNER LABORATORY Final Re sult Performing Organization Address [facility] Co de Phone Number [facility] [address] [place] [address], [id number] * (ABNORMAL) PROTHROMBIN TIME, VENOUS (09/03/2024 5:06 AM PUBLICATIONS MANAGER) Only the most recent of8 resultswithin the time period is included. PROTIME 30.2(H) 9.4 - 12.5 SEC 09/03/2024 6:07 AM [facility] INR 2.6(H) 0.8 - 1.1 09/03/2024 6:07 AM [facility] 09/03/2024 5:06 AM PUBLICATIONS MANAGER Zaria Mccarthy [facility] Final R esult Performing Organization Address [facility] Co de Phone Number [facility] [address] [place] [address], [phone] * (ABNORMAL) COMPREHENSIVE METABOLIC PANEL (09/03/2024 5:06 AM PUBLICATIONS MANAGER) Only the most recent of7 resultswithin the time period is included. SODIUM S/P/B 145 136 - 145 MMOL/L 09/03/2024 5:56 AM PUBLICATIONS MANAGER [facility] POTASSIUM S/P/B 4.1 3.5 - 5.1 MMOL/L 09/03/2024 5:56 AM [facility] CHLORIDE S/P/B 112 97 - 115 MMOL/L 09/03/2024 5:56 AM PUBLICATIONS MANAGER [facility] CO2 28.3 21.0 - 32.0 MMOL/L 09/03/2024 5:56 AM [facility] GLUCOSE 218(H) 74 - 106 MG/DL 09/03/2024 5:56 AM [facility] BUN 56(H) 7 - 18 MG/DL 09/03/2024 5:56 AM [facility] CREATININE S/P/B 1.81(H) 0.70 - 1.30 MG/DL 09/03/2024 5:56 AM [facility] CALCIUM S/P/B 9.8 8.5 - 10.1 MG/DL 09/03/2024 5:56 AM [facility] BILIRUBIN TOTAL S/P/B 1.7(H) 0.2 - 1.0 MG/DL 09/03/2024 5:56 AM [facility] ALKALINE PHOSPHATASE S/P/B 129(H) 45 - 115 U/L 09/03/2024 5:56 AM [facility] AST 23 15 - 37 U/L 09/03/2024 5:56 AM [facility] ALT 21 16 - 61 U/L 09/03/2024 5:56 AM [facility] TOTAL PROTEIN S/P/B 8.3(H) 6.4 - 8.2 G/DL 09/03/2024 5:56 AM [facility] ALBUMIN S/P/B 3.0(L) 3.4 - 5.0 G/DL 09/03/2024 5:56 AM [facility] ANION GAP 4.7 2.0 - 10.0 MMOL/L 09/03/2024 5:56 AM [facility] OSMOLALITY (CALC) 322 MOSM/KG 025 5:56 AM [facility] Comment:REFERENCE RANGE NOT ESTABLISHED GFR ESTIMATE 40(L) >90 ML/MIN/1. 73 M2 09/03/2024 5:56 AM [facility] GFR NOTES GFR REFERENCE S: 09/03/2024 5:56 AM PUBLICATIONS MANAGER [facility] Comment: THE ESTIMATED GFR [...] FAILURE: <15 ml/min/1.73 m2 09/03/2024 5:06 AM PUBLICATIONS MANAGER Zaria Mccarthy [facility] Final R esult [facility] [address] [place] [address], [id number] * (ABNORMAL) CBC W/DIFF AUTOMATED (09/03/2024 5:06 AM PUBLICATIONS MANAGER) Only the most recent of8 resultswithin the time period is included. WBC 13.49(H) 4.00 - 10.80 x10'3/uL 09/03/2024 5:28 AM PUBLICATIONS MANAGER [facility] RBC 4.17(L) 4.50 - 6.10 x10'6/uL 09/03/2024 5:28 AM [facility] HGB 11.9(L) 12.0 - 16.0 G/DL 09/03/2024 5:28 AM [facility] HCT 39.1 37.0 - 52.0 % 09/03/2024 5:28 AM [facility] MCV 93.8 78.0 - 100.0 FL 09/03/2024 5:28 AM [facility] MCH 28.5 27.0 - 31.0 PG 09/03/2024 5:28 AM [facility] MCHC 30.4(L) 33.0 - 36.0 G/DL 09/03/2024 5:28 AM [facility] RDW 16.1(H) 11.5 - 14.5 % 09/03/2024 5:28 AM [facility] PLT 111(L) 150 - 350 x10'3/uL 09/03/2024 5:28 AM [facility] MPV 11.9(H) 7.4 - 10.4 FL 09/03/2024 5:28 AM [facility] DIFFERENTIAL TYPE MANUAL DIFFERENTIAL 09/03/2024 7:07 AM [facility] NRBC % 0.0 % 09/03/2024 7:07 AM [facility] SEG NEUTROPHILS 78 % 7:07 AM [facility] LYMPHOCYTES 1 % 09/03/2024 7:07 AM [facility] MONOCYTES 14 % 09/03/2024 7:07 AM [facility] EOSINOPHILS 0 % 09/03/2024 7:07 AM [facility] BASOPHILS 0 % 09/03/2024 7:07 AM [facility] BANDS 6 % 09/03/2024 7:07 AM [facility] METAMYELOCYTES 1 % 09/03/2024 7:07 AM [facility] ABS. NEUTROPHILS 11.33(H) 1.60 - 8.30 x10'3/uL 09/03/2024 7:07 AM [facility] ABS. LYMPHOCYTES 0.13(L) 0.80 - 4.70 x10'3/uL 09/03/2024 7:07 AM [facility] ABS. MONOCYTES 1.89(H) 0.00 - 1.50 x10'3/uL 09/03/2024 7:07 AM [facility] ABS. EOSINOPHILS 0.00 0.00 - 0.40 x10'3/uL 09/03/2024 7:07 AM [facility] ABS. BASOPHILS 0.00 0.00 - 0.20 x10'3/uL 09/03/2024 7:07 AM [facility] ABS. METAMYELOCYTES 0.13(H) 0.00 x10'3/uL 09/03/2024 7:07 AM [facility] ABS. NUCLEATED RBC'S 0.00 0.00 - 0.01 x10'3/uL 09/03/2024 7:07 AM [facility] RBC MORPHOLOGY SLIDE REVIEWED 2024 7:07 AM [facility] ANISO SLIGHT 09/03/2024 7:07 AM [facility] POIKLO SLIGHT 09/03/2024 7:07 AM [facility] OVALOCYTES PRESENT 09/03/2024 7:07 AM [facility] PLT EST. DECREASED 09/03/2024 7:07 AM [facility] 09/03/2024 5:06 AM PUBLICATIONS MANAGER Zaria Mccarthy [facility] Final R esult [facility] [address] [place] [phone], [phone] * (ABNORMAL) RENAL FUNCTION PANEL (09/02/2024 11:25 PM PUBLICATIONS MANAGER) Only the most recent of2 resultswithin the time period is included. SODIUM S/P/B 145 136 - 145 MMOL/L 09/03/2024 12:01 AM [facility] POTASSIUM S/P/B 4.1 3.5 - 5.1 MMOL/L 09/03/2024 12:01 AM [facility] CHLORIDE S/P/B 112 97 - 115 MMOL/L 09/03/2024 12:01 AM [facility] CO2 29.6 21.0 - 32.0 MMOL/L 09/03/2024 12:01 AM [facility] GLUCOSE 238(H) 74 - 106 MG/DL 09/03/2024 12:01 AM [facility] BUN 56(H) 7 - 18 MG/DL 09/03/2024 12:01 AM [facility] CREATININE S/P/B 1.90(H) 0.70 - 1.30 MG/DL 09/03/2024 12:01 AM [facility] CALCIUM S/P/B 9.3 8.5 - 10.1 MG/DL 09/03/2024 12:01 AM [facility] ALBUMIN S/P/B 2.9(L) 3.4 - 5.0 G/DL 09/03/2024 12:01 AM [facility] PHOSPHORUS 3.1 2.5 - 4.9 MG/DL 09/03/2024 12:01 AM [facility] ANION GAP 3.4 2.0 - 10.0 MMOL/L 09/03/2024 12:01 AM [facility] OSMOLALITY (CALC) 323 MOSM/KG 025 12:01 AM [facility] Comment:REFERENCE RANGE NOT ESTABLISHED GFR ESTIMATE 37(L) >90 ML/MIN/1. 73 M2 09/03/2024 12:01 AM [facility] GFR NOTES GFR REFERENCE S: 09/03/2024 12:01 AM [facility] Comment: THE ESTIMATED GFR IS [...] <15 ml/min/1.73 m2 09/02/2024 11:2 5 PM PUBLICATIONS MANAGER Marlin Pena ASSISTANT DESIGNER LABORATORY Final Re sult Performing Organization Address [facility] de Phone Number [facility] [address] [place] [address], [id number] * CULTURE, URINE (09/01/2024 11:10 AM PUBLICATIONS MANAGER) Only the most recent of2 resultswithin the time period is included. SPEC DESCRIPTION URINE CLEAN CATCH 09/01/2024 2:58 PM PUBLICATIONS MANAGER [facility] SPECIAL REQUESTS NO SPECIAL REQUEST 09/01/2024 2:58 PM PUBLICATIONS MANAGER [facility] CULTURE RESULT NO GROWTH (< OR = 1,000 CFU/ML) 09/03/2024 8:35 AM PUBLICATIONS MANAGER [facility] URINE SPECIMEN OBTAINED BY CLEAN CATCH PROCEDURE / Unknown 09/01/2024 11:10 AM PUBLICATIONS MANAGER 09/01/2024 3:11 PM PUBLICATIONS MANAGER Eduar Lindsay MD MICROBIOLOGY - GENERAL ORDER BAKARI Final Result Performing Organization Address [facility] de Phone Number [facility] [address] [place] [address], [id number] * XR SPEECH SWALLOW SJS ONLY (09/01/2024 9:59 AM PUBLICATIONS MANAGER) Anatomical Region Laterality Modality NA Fluoroscopy 09/01/2024 4:53 PM PUBLICATIONS MANAGER Impressions 09/01/2024 5:05 PM PUBLICATIONS MANAGER Impression: 1. Impending silent aspiration with nectar [...] 09/01/2024 4:53 PM Narrative 09/01/2024 5:[address] [address] Date: 09/01/2024 4:54 PM Exam: Video assisted [...] of laryngeal penetration. No evidence of aspiration. Trilla barium consistency via spoon demonstrated premature spillage to the vallecula before initiation of swallow. No evidence of laryngeal penetration. No evidence of aspiration. Trilla barium consistency via straw demonstrated premature spillage [...] This is consistent with impending silent aspiration. Trilla barium consistency via open cup demonstrated premature spillage to the vallecula and piriform sinuses before initiation of swallow. No evidence of laryngeal penetration. No evidence of aspiration. Trilla barium consistency via straw with a bolus [...] Procedure Note Victorino Dowd MD - 09/01/[address] [address] Date: 09/01/2024 4:54 PM Exam: Video assisted [...] evidence oflaryngeal penetration. No evidence of aspiration. Trilla barium consistency via spoon demonstrated premature spillage to thevallecula before initiation of swallow. No evidence of laryngealpenetration. No evidence of aspiration. Trilla barium consistency viastraw demonstrated premature spillage to [...] elicited. This is consistent withimpending silent aspiration. Trilla barium consistency via open cupdemonstrated premature spillage to the vallecula and piriform sinusesbefore initiation of swallow. No evidence of laryngeal penetration. Noevidence of aspiration. Trilla barium consistency via straw with a bolushold [...] Interpreted By: KESHA Munoz, 09/01/2024 4:53 PM us Eduar Lindsay MD FLUOROSCOPY Final Result * (ABNORMAL) HEMOGLOBIN, GLYCATED (09/01/2024 8:19 AM PUBLICATIONS MANAGER) HGB A1C 7.0(H) <5.7 % 09/01/2024 9:13 AM PUBLICATIONS MANAGER [facility] ESTIMATED AVG GLUCOSE 154(H) 74 - 114 MG/DL 09/01/2024 9:13 AM PUBLICATIONS MANAGER [facility] 09/01/2024 8:19 AM PUBLICATIONS MANAGER Zaria Mccarthy [facility] Final R esult Performing Organization Address [facility] de Phone Number [facility] [address] [place] [address], [place] [phone] * THYROID STIM HORMONE, TSH (09/01/2024 8:19 AM PUBLICATIONS MANAGER) TSH 2.000 0.358 - 3.740 uIU/ML 09/01/2024 9:11 AM PUBLICATIONS MANAGER [facility] Comment: ASSAY PERFORMED BY CHEMILUMINESCENCE METHODOLOGY USING [facility]. PATIENT RESULTS DETERMINED BY ASSAYS USING DIFFERENT MANUFACTURERS FOR METHODS MAY NOT BE COMPARABLE. 09/01/2024 8:19 AM PUBLICATIONS MANAGER Zaria Mccarthy [facility] Final R esult Performing Organization Address [facility] de Phone Number [facility] [address] [place] [address], [place] [phone] * MAGNESIUM (09/01/2024 8:19 AM PUBLICATIONS MANAGER) Only the most recent of2 resultswithin the time period is included. MAGNESIUM 2.5 1.6 - 2.6 MG/DL 09/01/2024 9:11 AM PUBLICATIONS MANAGER [facility] 09/01/2024 8:19 AM PUBLICATIONS MANAGER [facility] Final R esult Performing Organization Address [facility] de Phone Number [facility] [address] [place] [address], [phone] * US RETROPERITONEAL LTD (08/31/2024 10:20 PM PUBLICATIONS MANAGER) Anatomical Region Laterality Modality Renal Ultrasound 09/01/2024 2:04 AM PUBLICATIONS MANAGER Impressions 09/01/2024 2:06 AM PUBLICATIONS MANAGER IMPRESSION: 1. ??No right-sided hydronephrosis. 2. ??Nonvisualized left kidney and suboptimally visualized right kidney. 3. ??Decompressed urinary bladder with Oneill catheter. Referred By: PROVIDER NON-STAFF Interpreted By: Ever Love MD, 09/01/2024 2:04 AM Narrative 09/01/2024 2:06 AM PUBLICATIONS MANAGER [address] [address] EXAMINATION: Renal ultrasound EXAM DATE/TIME: 08/31/2024 10:03 [...] Procedure Note Ever Love MD - 09/01/[address] [address] EXAMINATION: Renal ultrasound EXAM DATE/TIME: 08/31/2024 10:03 [...] By: Ever Love MD, 09/01/2024 2:04 AM us Ludy Romero MD ULTRASOUND Final Result * SODIUM URINE RANDOM (08/31/2024 5:12 PM PUBLICATIONS MANAGER) NA RANDOM (U) 88 MMOL/L 08/31/2024 5:38 PM PUBLICATIONS MANAGER [facility] Comment:REFERENCE RANGE NOT ESTABLISHED URINE SPECIMEN / Unknown 08/31/2024 5:12 PM PUBLICATIONS MANAGER us Ludy Romero MD URINE ORDERABLES Final Result Performing Organization Address [facility] Co de Phone Number [facility] [address] [place] [address], [phone] * CREATININE URINE RANDOM (08/31/2024 5:12 PM PUBLICATIONS MANAGER) CREATININE (U) 33.5 MG/DL 08/31/2024 5:38 PM PUBLICATIONS MANAGER [facility] Comment:REFERENCE RANGE NOT ESTABLISHED URINE SPECIMEN / Unknown 08/31/2024 5:12 PM PUBLICATIONS MANAGER us Ludy Romero MD URINE ORDERABLES Final Result Performing Organization Address [facility] Co de Phone Number [facility] [address] [place] [address], [place] [phone] * (ABNORMAL) URINALYSIS (08/31/2024 5:12 PM PUBLICATIONS MANAGER) Only the most recent of2 resultswithin the time period is included. COLOR (U) LIGHT BROWN 08/31/2024 5:34 PM [facility] TRANSPARENCY SLIGHTLY CLOUDY 08/31/2024 5:34 PM [facility] SPECIFIC GRAVITY (U) 1.009 1.002 - 1.035 08/31/2024 5:34 PM [facility] U PH 5.0 5 - 8 08/31/2024 5:34 PM [facility] PROTEIN RANDOM (U) 10(A) NEGATIVE 08/31/2024 5:34 PM [facility] GLUCOSE (U) 30(A) NEGATIVE MG/DL 08/31/2024 5:34 PM [facility] KETONES MG/DL (U) NEGATIVE NEGATIVE 08/31/2024 5:34 PM [facility] BILIRUBIN (U) NEGATIVE NEGATIVE 08/31/2024 5:34 PM [facility] BLOOD (U) 3+(A) NEGATIVE 08/31/2024 5:34 PM [facility] NITRITES NEGATIVE NEGATIVE 08/31/2024 5:34 PM [facility] UROBILINOGEN NORMAL 0 - 1 EU/DL 08/31/2024 5:34 PM [facility] LEUKOCYTES (U) 1+(A) NEGATIVE 08/31/2024 5:34 PM [facility] RBC/HPF >182(H) 0 - 3 /HPF 08/31/2024 5:34 PM [facility] Comment:PLEASE CALL THE LAB WITHIN 2 HOURS IF ACTUAL NUMBER OF CELLS IS REQUIRED. WBC/HPF 27(H) 0 - 6 /HPF 08/31/2024 5:34 PM [facility] BACTERIA (U) PRESENT /HPF 08/31/2024 5:34 PM PUBLICATIONS MANAGER [facility] SQUAMOUS EPITHELIALS <1 08/31/2024 5:34 PM PUBLICATIONS MANAGER [facility] WBC CLUMPS PRESENT 08/31/2024 5:34 PM PUBLICATIONS MANAGER [facility] HYALINE CASTS 28 08/31/2024 5:34 PM PUBLICATIONS MANAGER [facility] URINE SPECIMEN / Unknown 08/31/2024 5:12 PM PUBLICATIONS MANAGER Ludy Romero MD URINE ORDERABLES Final Result Performing Organization Address [facility] Co de Phone Number [facility] [address] [place] [address], [phone] * USE ECHOCARDIOGRAM W CON (08/31/2024 2:02 PM PUBLICATIONS MANAGER) Anatomical Region Laterality Modality NA Echocardiogram 08/31/2024 1:13 PM PUBLICATIONS MANAGER Narrative 08/31/2024 11:02 PM PUBLICATIONS MANAGER ?Echocardiography Report Pat.Name: ??OBIE SIMS ?Pat.ID: ?[id number] ? St.Date: ?? 08/31/2024 ? Refer.MD: ??[id number] NON-STAFF PROVIDER ?EWDPROV ?EWDPROV Exam Time: 1:13:00 PM ?Study Type:ECHO W/CONTRAST COMPLETE Height: ?168 cm ?Weight: ?110 kg ? BSA: ? 2.17 m2 ?Age: ??1955,69Y ? Sex: ? M ? BP: ?117/53 ? HR: ?84 bpm ?Sonogrphr: Jose Cruz Tejada RDCS ? Pat. Stat.:Inpatient ? Room: ?622 [...] ?? Value ?223 g ? LV Mass Pyywq2M ?? Value ?103 g/m2 ? RA Volume [...] 08/31/2024 Echocardiography Report Pat.Name: OBIE SIMS Pat.ID: [id number] .Date: 08/31/2024 : [id number] NON-STAFF PROVIDER EWDPROV EWDPROV Exam Time: 1:13:00 PM Study Type:ECHO W/CONTRAST COMPLETE Height: 168 cm Weight: 110 kg BSA: 2.17 m2 Age: 11 1955,69Y Sex: M BP: 117/53 HR: 84 bpm Sonogrphr: Jose Cruz Tejada [facility] Pat. Stat.:Inpatient Room: 622 CPT - 4: [...] Mass 2D Value 223 g LV Mass [id number] Value 103 g/m2 RA Volume Atrial Schaffer [...] Signature> 08/31/2024 11:02 PM Brit Gonzáles M.D. us Zaria Mccarthy ACNP-BC ECHO Final R esult * ECG 12 lead (08/31/2024 12:13 PM PUBLICATIONS MANAGER) Only the most recent of2 resultswithin the time period is included. 08/31/2024 12:1 3 PM PUBLICATIONS MANAGER Narrative [facility] - 09/01/2024 2:20 PM PUBLICATIONS MANAGER ? [facility] ?[address], [place] ??[address] ? Test Date: ?2024-08-31 Pat Name: ? OBIE SIMS ?Department: ?? 1 ? Room: ? 622AA Gender: ? Male ? [place] Former: ?? Sc : ?1955 ? Requested By: ZARIA MCCARTHY Order Number: [id number] ? Reading : ?? Domingo Parks ? Measurements Intervals ?[place] ? Rate: ? 80 ? P: ? NE: ? 0 ?QRS: ?-32 QRSD: ? 147 ?T: ?128 QT: ? 379 ? QTc: ?439 ? Interpretive Statements ATRIAL FIBRILLATION LEFT AXIS DEVIATION ??[QRS AXIS < -30] LEFT BUNDLE BRANCH BLOCK ??[120+ ms QRS DURATION, 80+ ms Q/S IN V1/V2, 85+ ms R IN I/aVL/V5/V6] ICATIONS MANAGER Procedure Note Domingo Parks MD - 09/01/2024 [place] [address] [place] [address] Test Date: 2024-08-31 Pat Name: OBIE SIMS Department: 1 Room: [facility] Gender: Male [place] Former: Ti : 1955 Requested By: ZARIA MCCARTHY Order Number: [id number] Sage MD: Domingo Parks Measurements Intervals [place] Rate: 80 P: NE: 0 QRS: -32 QRSD: 147 T: 128 QT: 379 QTc: 439 Interpretive Statements ATRIAL FIBRILLATION LEFT AXIS DEVIATION [QRS AXIS < -30] LEFT BUNDLE BRANCH BLOCK [120+ ms QRS DURATION, 80+ ms Q/S IN V1/V2, 85+ms R IN I/aVL/V5/V6] ICATIONS MANAGER Zaria Mccarthy ACNP-BC ECG ORDERABLES Final R esult [facility] * (ABNORMAL) PRO-BRAIN NATRIURETIC PEPTIDE (PRO BNP) (08/31/2024 10:35 AM PUBLICATIONS MANAGER) Only the most recent of2 resultswithin the time period is included. Pathologist [facility] PRO-B TYPE NATRIURETIC PEPTIDE 8,481(H) <125 PG/ML 08/31/2024 11:09 AM PUBLICATIONS MANAGER [facility] Comment: AGE INDEPENDENT: <300 [...] FOR ACUTE CHF. 08/31/2024 10:3 5 AM PUBLICATIONS MANAGER us Eduar Lindsay MD LABORATORY Final Result [facility] [address] [place] [address], [phone] * CK (CPK) (08/31/2024 10:35 AM PUBLICATIONS MANAGER) Pathologist [facility] CPK 154 39 - 308 U/L 08/31/2024 5:11 PM [facility] 08/31/2024 10:3 5 AM PUBLICATIONS MANAGER Ludy Romero MD LABORATORY Final Result [facility] [address] [place] [address], [phone] * (ABNORMAL) BASIC METABOLIC PANEL (08/01/2024 5:24 AM PUBLICATIONS MANAGER) SODIUM S/P/B 137 136 - 145 MMOL/L 08/01/2024 6:32 AM [facility] POTASSIUM S/P/B 4.6 3.5 - 5.1 MMOL/L 08/01/2024 6:32 AM [facility] CHLORIDE S/P/B 103 98 - 107 MMOL/L 08/01/2024 6:32 AM [facility] CO2 27.2 21.0 - 32.0 MMOL/L 08/01/2024 6:32 AM [facility] GLUCOSE 48(LL) 70 - 99 MG/DL 08/01/2024 6:32 AM [facility] Comment: Critical Result(s) Called to and read back by: STEPHEN TRUJILLO ?? at: 06:31:27 ?? 08/01/2024 by ETCR. FASTING GLUCOSE 100 TO 125 MG/DL IS CONSISTENT WITH IMPAIRED FASTING GLUCOSE. FASTING GLUCOSE >125 MG/DL IS CONSISTENT WITH DIABETES. RANDOM GLUCOSE >200 MG/DL WITH HYPERGLYCEMIC SYMPTOMS IS CONSISTENT WITH DIABETES. PER ADA GUIDELINES BUN 51(H) 6 - 24 MG/DL 08/01/2024 6:32 AM [facility] CREATININE S/P/B 1.72(H) 0.70 - 1.30 MG/DL 08/01/2024 6:32 AM [facility] CALCIUM S/P/B 8.7 8.4 - 10.5 MG/DL 08/01/2024 6:32 AM [facility] ANION GAP 6.8 5.0 - 15.0 MMOL/L 08/01/2024 6:32 AM PUBLICATIONS MANAGER [facility] OSMOLALITY (CALC) 295 MOSM/KG 024 6:32 AM PUBLICATIONS MANAGER [facility] Comment:REFERENCE RANGE NOT ESTABLISHED GFR ESTIMATE 42(L) >89 ML/MIN/1. 73 M2 08/01/2024 6:32 AM PUBLICATIONS MANAGER [facility] GFR NOTES GFR REFERENCE S: 08/01/2024 6:32 AM PUBLICATIONS MANAGER [facility] Comment: THE ESTIMATED GFR [...] FAILURE: <15 ml/min/1.73 m2 08/01/2024 5:24 AM PUBLICATIONS MANAGER Jena Schilling MD LABORATORY Final Resul t [facility] [address] [place] [address], * BLOOD CULTURE #1 (07/31/2024 3:43 PM PUBLICATIONS MANAGER) SPEC DESCRIPTION BLOOD 07/31/2024 3:30 PM PUBLICATIONS MANAGER [facility] SPECIAL REQUESTS NO SPECIAL REQUEST 07/31/2024 3:30 PM PUBLICATIONS MANAGER [facility] CULTURE RESULT NO GROWTH 5 DAYS 2024 10:57 AM PUBLICATIONS MANAGER [facility] BLOOD SPECIMEN OBTAINED FOR BLOOD CULTURE / Unknown 07/31/2024 3:43 PM PUBLICATIONS MANAGER 07/31/2024 3:47 PM PUBLICATIONS MANAGER Jena Schilling MD MICROBIOLOGY - GENERAL CLARISSA MCARTHUR Final Result Performing Organization Address [facility] Co de Phone Number [facility] [address] [place] [address], * LACTIC ACID W REFLEX (SEPSIS) (07/31/2024 3:36 PM PUBLICATIONS MANAGER) LACTIC ACID VENOUS 0.4 0.4 - 2.0 MMOL/L 07/31/2024 4:08 PM PUBLICATIONS MANAGER [facility] 07/31/2024 3:36 PM PUBLICATIONS MANAGER Jena Schilling MD LABORATORY Final Resul t Performing Organization Address [facility] Co de Phone Number [facility] [address] [place] [address], * TROPONIN, QUANT (07/31/2024 3:36 PM PUBLICATIONS MANAGER) TROPONIN I HIGH SENSITIVITY 48 0 - 76 ng/L 07/31/2024 4:08 PM PUBLICATIONS MANAGER [facility] 07/31/2024 3:36 PM PUBLICATIONS MANAGER Jena Schilling MD LABORATORY Final Resul t Performing Organization Address [facility] Co de Phone Number [facility] [address] [place] [address], * CT ABD+PEL WO CON (11/17/2023 3:08 [...] PM Megan Infante MD CT Final Result * HEPATITIS C ANTIBODY (12/24/2022 3:05 PM CDT) HEPATITIS C AB NON-REACTI VE NON-REACT ALEK 12/25/2022 6:28 PM CDT [facility] Comment: ANTIBODIES TO HCV NOT DETECTED. DOES NOT EXCLUDE THE POSSIBILITY OF EXPOSURE TO HCV. 12/24/2022 3:05 PM CDT Katina Beltran MD LABORATORY Final Resu lt [facility] [address] [place] [address], [id number] * LIPID PANEL (02/01/2022 11:27 AM CDT) CHOLESTEROL 151 MG/DL 02/01/2022 12:29 PM CDT [facility] Comment:DESIRABLE: <200 TRIGLYCERIDES 119 MG/DL 02/01/2022 12:29 PM CDT [facility] Comment:<150 NORMAL HDL 73 >39 MG/DL 02/01/2022 12:29 PM CDT [facility] LDL (CALCULATED) 54 MG/DL 02/02/20 22 12:29 PM CDT [facility] Comment:<100 OPTIMAL VLDL CALCULATION 24 MG/DL 02/02/20 22 12:29 PM CDT [facility] Comment:REFERENCE RANGE NOT ESTABLISHED CHOL/HDL RATIO 2.1 02/01/2022 12:29 PM CDT [facility] Comment:REFERENCE RANGE NOT ESTABLISHED LDL/HDL 0.7 02/01/2022 12:29 PM CDT [facility] Comment:REFERENCE RANGE NOT ESTABLISHED NON HDL CHOLESTEROL 78 MG/DL 02/01/2022 12:29 PM CDT [facility] Comment:REFERENCE RANGE NOT ESTABLISHED 02/01/2022 11:2 7 AM CDT Segundo Montana MD LABORATORY Final Result [facility] [address] [place] [address], [place] [phone] * Colonoscopy (01/27/2022 6:48 AM CDT) Kilo Navarro MD GI PROCEDURE ORDERABLES Final Result from Last 3 Months or Most Recently Relevant to Health Maintenance Insurance [facility] [employer] Advance Directives Documents on File Type Date Recorded Patient Medical Cash Poster Expl anation Advance Directives and Living Will 02/22/2020 1:54 PM 04/11/2012 POLST Advance Directives and Living Will 11/06/2017 POWER OF CHECK GRADER FO R HEALTH CARE Advance Directives and Living Will 01/04/2017 POWER OF CHECK GRADER FO R HEALTH CARE Advance Directives and Living Will 01/04/2017 SHORT FORM POWER OF CHECK GRADER Advance Directives and Living Will 05/13/2016 POWER OF CHECK GRADER FO R HEALTH CARE Advance Directives and Living Will 05/13/2016 SHORT FORM POWER OF CHECK GRADER Advance Directives and Living Will 04/06/2016 POWER OF CHECK GRADER FO R HEALTH CARE Advance Directives and Living Will 03/23/2016 POWER OF CHECK GRADER FO R HEALTH CARE Advance Directives and Living Will 01/27/2016 POWER OF CHECK GRADER FO R HEALTH CARE Advance Directives and Living Will 10/23/2015 POWER OF CHECK GRADER FO R HEALTH CARE Advance Directives and Living Will 10/21/2015 POWER OF CHECK GRADER FO R HEALTH CARE Advance Directives and Living Will 10/21/2015 POWER OF CHECK GRADER FO R HEALTH CARE Advance Directives and Living Will 10/21/2015 POWER OF CHECK GRADER FO R HEALTH CARE Advance Directives and Living Will 10/01/2015 POWER OF CHECK GRADER FO R HEALTH CARE Advance Directives and Living Will 08/08/2015 POWER OF CHECK GRADER FO R HEALTH CARE Advance Directives and Living Will 06/25/2014 POWER OF CHECK GRADER FO R HEALTH CARE Advance Directives and Living Will 05/23/2014 POWER OF CHECK GRADER FO R HEALTH CARE * DNR (Latest [...] 4:57 AM 02/09/2023 3:44 PM Care Teams Aircraft Fuselage Framer Relationship Specialty Start Date End Date [place] [place] [phone] PCP - General FAMILY PRACTICE 04/06/16 [place] [address] [address] [phone] Consulting Physician PULMONARY DISEASE 07/12/19 Concetta Acevedo MD [address] [place] [address] Surgeon NEUROLOGICAL SURGERY 12/16/22 Jeff Grace MD [address] [place] [address] Consulting Physician INTERNAL MEDICINE 02/11/23 Brit Gonzáles MD [address] [place] [address] Consulting Physician CARDIOVASCULAR DISEASE 12/29/23
--- OUTSIDE RECORDS SUMMARY | 2024-09-03 20:34 | XMS_ITS | Encounter Summary ---
Author Organization [facility] Address [facility] [place] [address] [place] [address] Care Team Providers Care Scrubber Operator Name Role Phone Megan Infante MD Primary Care Provider [phone] Zaki Ortiz MD Unavailable [phone] Concetta Acevedo MD Unavailable [phone] Jeff Grace MD Unavailable Brit Gonzáles MD Unavailable Reason for Visit * Reason Comments New Patient Ventral hernia Encounter Details Date Type Department Care Team (Late st Contact Info) Description 08/24/2024 1:15 PM MOVIE PRODUCER Office Visit [facility] [address] [place] [address] Arnold Hernandez MD [address] [place] [address] New Patient (Ventral hernia) Social History Tobacco Use Types Packs/Day Years Used Date Smoking Tobacco: Former Passive Smoke Exposure: Past Smokeless Tobacco: Former Chew Tobacco Cessation:Counseling Given: No Alcohol Use Standard Drinks/Week Comments Yes 0 (1 standard drink = 0.6 oz pur e alcohol) 4 beers per week [facility] Utilities Answer Date Recorded In the [...] declined 02/16/2023 How often do you attend zoroastrianism or confucianism serv ices? Patient declined 02/16/2023 Do you belong to any clubs o r organizations such as zoroastrianism groups, unions, fraternal or athletic groups, or [...] move on to questions 3-9 0 12/01/2021 [facility] - Occupational [...] any time in the past 12 m [facility], were you homeless or living in [...] Comments Blood Pressure 131/78 08/24/2024 1:26 PM MOVIE PRODUCER Pulse 68 08/24/2024 1:26 PM MOVIE PRODUCER Temperature - - Respiratory Rate 16 08/24/2024 1:26 PM MOVIE PRODUCER Oxygen Saturation - - Inhaled Oxygen Concentration - - Weight 106.6 kg (235 lb) 08/24/2024 1:26 PM MOVIE PRODUCER Height 167.6 cm (5' 6 ) 08/24/2024 1:26 PM MOVIE PRODUCER Body Mass Index 37.93 08/24/2024 1:26 PM MOVIE PRODUCER documented in this encounter Functional Status * Are you deaf or do you have serious difficulty hearing Answer Date of Assessment Author Status No 07/31/2024 5:50 PM MOVIE PRODUCER Abril Contreras RN Active * Are you blind or do you have serious difficulty seeing, even when wearing glasses? Answer Date of Assessment Author Status No 07/31/2024 5:50 PM MOVIE PRODUCER Abril Contreras RN Active * Do you have serious difficulty walking or climbing stairs? Answer Date of Assessment Author Status Yes 07/31/2024 5:50 PM MOVIE PRODUCER Abril Contreras RN Active * Do you have difficulty dressing or bathing? Answer Date of Assessment Author Status Yes 07/31/2024 5:50 PM MOVIE PRODUCER Abril Contreras RN Active * Because of a physical, mental, or emotional condition, do you have difficulty doing errands alone such as visiting a doctor's office or shopping? Answer Date of Assessment Author Status No 07/31/2024 5:50 PM MOVIE PRODUCER Abril Contreras RN Active documented as of this encounter Mental Status * Because of a physical, mental, or emotional condition, do you have serious difficulty concentrating, remembering, or making decisions? Answer Entry Date Author Status Yes 07/31/2024 5:50 PM MOVIE PRODUCER Abril Contreras RN Active documented in this encounter Plan of Treatment Upcoming Encounters Date Type Department Care Team (Late st Contact Info) Description 09/25/2024 2:00 PM MOVIE PRODUCER Appointment [facility] [address] [place] [address] Zayra Powell, [facility] [address] [place] [address] 10/16/2024 3:30 PM MOVIE PRODUCER Office Visit [facility] [address] [place] [address] Brit Gonzáles MD [address] [place] [address] documented as of this encounter Goals Goal [...] documented as of this encounter Care Teams Scrubber Operator Relationship Specialty Start Date End Date Megan Infante MD [address] [place] [address] PCP - General FAMILY PRACTICE 04/06/16 Zaki Ortiz MD [address] [place] [address] Consulting Physician PULMONARY DISEASE 07/12/19 Concetta Acevedo MD [address] [place] [address] Surgeon NEUROLOGICAL SURGERY 12/16/22 Jeff Grace MD [address] [place] [address] Consulting Physician INTERNAL MEDICINE 02/11/23 Brit Gonzáles MD [address] [place] [address] Consulting Physician CARDIOVASCULAR DISEASE 12/29/23 documented as of this encounter
--- OUTSIDE RECORDS SUMMARY | 2024-09-03 20:34 | XMS_ITS | Encounter Summary ---
Author Organization [facility] Address [facility] [place] [address] [place] [address] Care Team Providers Care Heavy Equipment Plumbing Supervisor Name Role Phone Megan Infante MD Primary Care Provider [phone] Zaki Ortiz MD Unavailable [phone] Concetta Acevedo MD Unavailable + [phone] Jeff Grace MD Unavailable Brit Gonzáles MD Unavailable Encounter Details Date Type Department Care Team (Latest Contact Info) Description 08/24/2024 Travel Social History Tobacco Use Types Packs/Day Years Used Date Smoking Tobacco: Former Passive Smoke Exposure: Past Smokeless Tobacco: Former Chew Alcohol Use Standard Drinks/Week Comments Yes 0 (1 standard drink = 0.6 oz pur e alcohol) 4 beers per week [facility] Utilities Answer Date Recorded In the past 12 months has [facility] [employer], gas, oil, or water [employer] threatened to shut off services in your [...] declined 02/16/2023 How often do you attend jewish or jainism serv ices? Patient declined 02/16/2023 Do you belong to any clubs o r organizations such as jewish groups, unions, fraternal or athletic groups, or [...] a halfway (including now)? Patient declined 07/12/2023 Housing Stability [...] any time in the past [facility], were you homeless or living in a halfway (including now)? No 07/31/2024 Sex and Gender [...] Assessment Author Status No 07/31/2024 5:50 PM ANATOMY AND PHYSIOLOGY INSTRUCTOR Abril Contreras RN Active documented as of this encounter Mental Status * Because of a physical, mental, or emotional condition, do you have serious difficulty concentrating, remembering, or making decisions? Answer Entry Date Author Status Yes 07/31/2024 5:50 PM ANATOMY AND PHYSIOLOGY INSTRUCTOR Abril Contreras RN Active documented in this encounter Plan of Treatment Upcoming Encounters Date Type Department Care Team (Late st Contact Info) Description 09/25/2024 2:00 PM ANATOMY AND PHYSIOLOGY INSTRUCTOR Appointment [facility] [address] [place] [address] Zayra Powell, PATIENT SERVICES REP [address] [place] [address] 10/16/2024 3:30 PM ANATOMY AND PHYSIOLOGY INSTRUCTOR Office Visit [facility] [phone] [place] [address] Brit Gonzáles MD [address] [place], [...] documented as of this encounter Care Teams Heavy Equipment Plumbing Supervisor Relationship Specialty Start Date End [place] [address] PCP - General FAMILY PRACTICE 04/06/16 [place] [address] Consulting Physician PULMONARY DISEASE 07/12/19 Concetta Acevedo MD [address] [place] [address] Surgeon NEUROLOGICAL SURGERY 12/16/22 Jeff Grace MD [address] [place], [place] [address] Consulting Physician INTERNAL MEDICINE 02/11/23 Brit Gonzáles MD [address] [place], [place] [address] Consulting Physician CARDIOVASCULAR DISEASE 12/29/23 documented as of this encounter
--- OUTSIDE RECORDS SUMMARY | 2024-09-03 20:34 | XMS_ITS | Encounter Summary ---
Author Organization [facility] Address [facility] [place] [address] [place] [address] Care Team Providers Care Ladderman Name Role Phone Megan Infante MD Primary Care Provider [phone] Zaki Ortiz MD Unavailable [phone] Concetta Acevedo MD Unavailable + [phone] Jeff Grace MD Unavailable Brit Gonzáles MD Unavailable Encounter Details Date Type Department Care Team (Late st Contact Info) Description 08/14/2024 2:10 PM MATCHING MACHINE OPERATOR - 08/14/2024 11:59 PM [facility] Hospital Encounter [facility] [address] [place] [address] Zayra Powell, NURSING STAFF DEVELOPMENT COORDINATOR [address] [place] [id number] Discharge Disposition: Home or Self Care (Routine [...] How often do you attend spiritism or zoroastrianism serv ices? Patient declined 02/16/2023 Do you [...] move on to questions 3-9 0 12/01/2021 [facility] - Occupational Stress Questionnaire Answer Date Recorded [...] any time in the past 12 m [facility], were you homeless or living in a [...] 3:08 PM Actions taken: Order list changed HING MACHINE OPERATOR documented in this encounter Plan of Treatment Upcoming Encounters Date Type Department Care Team (Late st Contact Info) Description 09/25/2024 2:00 PM MATCHING MACHINE OPERATOR Appointment [facility] [address] [place] [address] Andre Zayra K, NURSING STAFF DEVELOPMENT COORDINATOR [address] [place] [address] 10/16/2024 3:30 PM MATCHING MACHINE OPERATOR Office Visit [facility] [address] [place] [phone] Brit Gonzáles MD [address] [place] [address] documented as of this encounter [...] documented as of this encounter Care Teams Ladderman Relationship Specialty Start Date End Date Megan Infante MD [address] [place] [address] PCP - General FAMILY PRACTICE 04/06/16 Zaki Ortiz MD [address] [place] [address] Consulting Physician PULMONARY DISEASE 07/12/19 Romeo-Concetta Pond MD [address] [place] [address] Surgeon NEUROLOGICAL SURGERY 12/16/22 Jeff Grace MD 9 [place] [address] Consulting Physician INTERNAL MEDICINE 02/11/23 Brit Gonzáles MD [address] [place] [address] Consulting Physician CARDIOVASCULAR DISEASE 12/29/23 documented as of this encounter
--- OUTSIDE RECORDS SUMMARY | 2024-09-03 20:34 | XMS_ITS | Encounter Summary ---
Author Organization [facility] Address [facility] [place] [address] [place] [address] Care Team Providers Care Pewter Caster Name Role Phone Megan Infante MD Primary Care Provider [phone] Zaki Ortiz MD Unavailable [phone] Concetta Acevedo MD Unavailable + [phone] Jeff Grace MD Unavailable Brit Gonzáles MD Unavailable Encounter Details Date Type Department Care Team (Latest Contact Info) Description 08/14/2024 Travel Social History Tobacco Use Types Packs/Day Years Used Date Smoking Tobacco: Former Passive Smoke Exposure: Past Smokeless Tobacco: Former Chew Alcohol Use Standard Drinks/Week Comments Yes 0 (1 standard drink = 0.6 oz pur e alcohol) 4 beers per week [facility] Utilities Answer Date Recorded In the past 12 months has [facility] [employer], gas, oil, or water [employer] threatened to shut off services in your [...] declined 02/16/2023 How often do you attend restoration or buddhist serv ices? Patient declined 02/16/2023 Do you belong to any clubs o r organizations such as restoration groups, unions, fraternal or athletic groups, or [...] long term (including now)? Patient declined 07/12/2023 Housing Stability [...] were you homeless or living in a long term (including now)? No 07/31/2024 Sex and Gender [...] Assessment Author Status No 07/31/2024 5:50 PM TRANSITIONAL NURSE Abril Contreras RN Active documented as of this encounter Mental Status * Because of a physical, mental, or emotional condition, do you have serious difficulty concentrating, remembering, or making decisions? Answer Entry Date Author Status Yes 07/31/2024 5:50 PM TRANSITIONAL NURSE Abril Contreras RN Active documented in this encounter Plan of Treatment Upcoming Encounters Date Type Department Care Team (Late st Contact Info) Description 09/25/2024 2:00 PM TRANSITIONAL NURSE Appointment [facility] [address] [place] [address] Zayra Powell, AUTOMATIC MAINTAINER [address] [place] [address] 10/16/2024 3:30 PM TRANSITIONAL NURSE Office Visit [facility] [facility] [address] [place] [address] Brit Gonzáles MD [address] [place] [address] documented as of this encounter [...] documented as of this encounter Care Teams Pewter Caster Relationship Specialty Start Date End [place] [address] PCP - General FAMILY PRACTICE 04/06/16 [place] [address] Consulting Physician PULMONARY DISEASE 07/12/19 Concetta Acevedo MD [address] [place] [address] Surgeon NEUROLOGICAL SURGERY 12/16/22 Jeff Grace MD [address] [place], [place] [address] Consulting Physician INTERNAL MEDICINE 02/11/23 Brit Gonzáles MD [address] [place], [place] [address] Consulting Physician CARDIOVASCULAR DISEASE 12/29/23 documented as of this encounter
--- OUTSIDE RECORDS SUMMARY | 2024-09-03 20:35 | XMS_ITS | Encounter Summary ---
Author Organization [facility] Address [facility] [place] [address] [place] [address] Care Team Providers Care Internet Consultant Name Role Phone Megan Infante MD Primary Care Provider [phone] Zaki Ortiz MD Unavailable [phone] Concetta Acevedo MD Unavailable + [phone] Jeff Grace MD Unavailable Brit Gonzáles MD Unavailable Encounter Details Date Type Department Care Team (Late st Contact Info) Description 05/09/2024 1:38 PM CDT - 05/09/2024 11:59 PM T Hospital Encounter [facility] [address] [place] [address] Zayra Powell, [facility] [address] [place] [address] Discharge Disposition: Home or Self Care (Routine Discharge) Social History Tobacco Use Types Packs/Day Years Used Date Smoking Tobacco: Former Passive Smoke Exposure: Past Smokeless Tobacco: Former Chew Alcohol Use Standard Drinks/Week Comments Yes 0 (1 standard drink = 0.6 oz pur e alcohol) 4 beers per week [facility] Utilities Answer Date Recorded In the [...] How often do you attend rastafarian or rastafari serv ices? Patient declined 02/16/2023 Do you [...] move on to questions 3-9 0 12/01/2021 [facility] - Occupational [...] st Contact Info) Description 09/25/2024 2:00 PM PICKLE SOLUTION MAKER Appointment [facility] [address] [place] [address] Zayra Powell, SLASHER SAWYER [address] [place] [address] 10/16/2024 3:30 PM PICKLE SOLUTION MAKER Office Visit [facility] [address] [place] [address] Brit Gonzáles MD [address] [place] [address] documented as of this encounter Goals Goal [...] - 145 MMOL/L 05/09/2024 2:30 PM CDT [facility] POTASSIUM S/P/B 4.8 3.5 - 5.1 MMOL/L 05/09/2024 2:30 PM CDT [facility] CHLORIDE S/P/B 101 98 - 107 MMOL/L 05/09/2024 2:30 PM CDT [facility] CO2 24.3 21.0 - 32.0 MMOL/L 05/09/2024 2:30 PM CDT [facility] GLUCOSE 97 70 - 99 MG/DL 05/09/2024 2:30 PM CDT [facility] Comment: FASTING GLUCOSE 100 TO 125 MG/DL IS CONSISTENT WITH IMPAIRED FASTING GLUCOSE. FASTING GLUCOSE >125 MG/DL IS CONSISTENT WITH DIABETES. RANDOM GLUCOSE >200 MG/DL WITH HYPERGLYCEMIC SYMPTOMS IS CONSISTENT WITH DIABETES. PER ADA GUIDELINES BUN 56(H) 6 - 24 MG/DL 05/09/2024 2:30 PM CDT [facility] CREATININE S/P/B 2.16(H) 0.70 - 1.30 MG/DL 05/09/2024 2:30 PM CDT [facility] CALCIUM S/P/B 9.0 8.4 - 10.5 MG/DL 05/09/2024 2:30 PM CDT [facility] ANION GAP 11.7 5.0 - 15.0 MMOL/L 05/09/2024 2:30 PM CDT [facility] OSMOLALITY (CALC) 299 MOSM/KG 024 2:30 PM CDT [facility] Comment:REFERENCE RANGE NOT ESTABLISHED GFR ESTIMATE 32(L) >89 ML/MIN/1. 73 M2 05/09/2024 2:30 PM CDT [facility] GFR NOTES GFR REFERENCE S: 05/09/2024 2:30 PM CDT [facility] Comment: THE ESTIMATED GFR [...] 05/09/2024 1:46 PM CDT us Zayra Powell [facility] Final Result [facility] [address] [employer] [address] [phone] documented in this encounter Visit Diagnoses Diagnosis Elevated serum creatinine Other nonspecific findings on examination of blood documented in this encounter Additional Health Concerns Assessment Noted Time PHQ-9 Depression Total Score: 0 12/02/19 22 1:18 PM CDT documented as of this encounter Care Teams Internet Consultant Relationship Specialty Start Date End Date Megan Infante MD [address] [facility] [place] [address] PCP - General FAMILY PRACTICE 04/06/16 Zaki Ortiz MD 12[address] [facility] [place] [address] Consulting Physician PULMONARY DISEASE 07/12/19 Concetta Acevedo MD [address] [place] [address] Surgeon NEUROLOGICAL SURGERY 12/16/22 Jeff Grace MD [address] [place] [address] Consulting Physician INTERNAL MEDICINE 02/11/23 Brit Gonzáles MD [address] [place] [address] Consulting Physician CARDIOVASCULAR DISEASE 12/29/23 documented as of this encounter
--- OUTSIDE RECORDS SUMMARY | 2024-09-03 20:35 | XMS_ITS | Encounter Summary ---
Author Organization [facility] Address [facility]6 [facility] [place] [address] [place] [address] Care Team Providers Care Brazer Induction Name Role Phone Megan Infante MD Primary Care Provider [phone] Zaki Ortiz MD Unavailable [phone] Concetta Acevedo MD Unavailable + [phone] Jeff Grace MD Unavailable Brit Gonzáles MD Unavailable Encounter Details Date Type Department Care Team (Late st Contact Info) Description 05/02/2024 12:15 PM CDT - 05/02/2024 1:05 PM CDT Hospital Encounter [facility] [address] [place] [address] Zayra Powell, [facility] [address] [place] [address] Discharge Disposition: Home or Self Care (Routine Discharge) Social History Tobacco Use Types Packs/Day Years Used Date Smoking Tobacco: Former Passive Smoke Exposure: Past Smokeless Tobacco: Former Chew Alcohol Use Standard Drinks/Week Comments Yes 0 (1 standard drink = 0.6 oz pur e alcohol) 4 beers per week [facility] Utilities Answer Date Recorded In the past 12 months has e electric, gas, oil, or water [employer] threatened to shut off services in your [...] How often do you attend spiritism or sabianist serv ices? Patient declined 02/16/2023 [...] move on to questions 3-9 0 12/01/2021 [facility] - Occupational Stress Questionnaire [...] st Contact Info) Description 09/25/2024 2:00 PM COLLECTOR Appointment [facility] [address] [place] [address] Andre Zayra K, [facility] [address] [place], [place] [phone] 10/16/2024 3:30 PM COLLECTOR Office Visit [facility] [address] [place] [phone] Brit Gonzáles MD [address] [place] [address] documented as of this encounter [...] documented as of this encounter Care Teams Brazer Induction Relationship Specialty Start Date End Date Megan Infante MD [address] [place] [address] PCP - General FAMILY PRACTICE 04/06/16 Zaki Ortiz MD [address] [place] [address] Consulting Physician PULMONARY DISEASE 07/12/19 Concetta Acevedo MD [address] [place] [address] Surgeon NEUROLOGICAL SURGERY 12/16/22 Jeff Grace MD [address] [place] [address] Consulting Physician INTERNAL MEDICINE 02/11/23 Brit Gonzáles MD [address] [place] [address] Consulting Physician CARDIOVASCULAR DISEASE 12/29/23 documented as of this encounter
--- OUTSIDE RECORDS SUMMARY | 2024-09-03 20:35 | XMS_ITS | Encounter Summary ---
Author Organization [facility] Address [facility] [place] [address] [place] [address] Care Team Providers Care Beam Doffer Name Role Phone Megan Infante MD Primary Care Provider [phone] Zaki Ortiz MD Unavailable [phone] Concetta Acevedo MD Unavailable + [phone] Jeff Grace MD Unavailable Brit Gonzáles MD Unavailable Encounter Details Date Type Department Care Team (Late st Contact Info) Description 08/08/2024 1:52 PM SALON RECEPTIONIST - 08/08/2024 11:59 PM [facility] Hospital Encounter [facility] [address] [place] [address] Zayra Powell, BUNDLE CLERK [address] [place] [phone] Discharge Disposition: Home or Self Care (Routine Discharge) Social History Tobacco Use Types Packs/Day Years Used Date Smoking Tobacco: Former Passive Smoke Exposure: Past Smokeless Tobacco: Former Chew Alcohol Use Standard Drinks/Week Comments Yes 0 (1 standard drink = 0.6 oz pur e alcohol) 4 beers per week [facility] Utilities Answer Date Recorded In [...] How often do you attend orthodoxy or mormonism serv ices? Patient declined 02/16/2023 [...] 3-9 0 12/01/2021 [facility] - Occupational Stress Questionnaire Answer Date [...] time in the past 12 m [facility], were you homeless or living in a [...] modified, Order list changed, Diagnosis association updated N RECEPTIONIST * Mary Moore RN - 08/08/2024 2:00 PM CSTEncounter addended by: Mary Moore RN on: 08/08/2024 3:22 PM Actions taken: MAR administration accepted N RECEPTIONIST documented in this encounter Plan of Treatment Upcoming Encounters Date Type Department Care Team (Late st Contact Info) Description 09/25/2024 2:00 PM SALON RECEPTIONIST Appointment [facility] [address] [facility] [place] [address] Zayra Powell FNP 12[address] [place] [address] 10/16/2024 3:30 PM SALON RECEPTIONIST Office Visit [facility] [place] [phone] Brit Gonzáles MD [address] [place] [address] documented as of this encounter Goals Goal [...] skin (CMS/HCC HHS/HCC) Given 08/08/2024 2:10 PM SALON RECEPTIONIST documented in this encounter Additional Health Concerns Assessment Noted Time PHQ-9 Depression Total Score: 0 12/02/19 1:18 PM CDT documented as of this encounter Care Teams Beam Doffer Relationship Specialty Start Date End Date Megan Infante MD [address] [place] [address] PCP - General FAMILY PRACTICE 04/06/16 Zaki Ortiz MD [address] [place] [address] Consulting Physician PULMONARY DISEASE 07/12/19 Romeo-Concetta Pond MD [facility] [address] [place] [phone] Surgeon NEUROLOGICAL SURGERY 12/16/22 Jeff Grace MD [address] [place] [address] Consulting Physician INTERNAL MEDICINE 02/11/23 Brit Gonzáles MD [address] [place] [address] Consulting Physician CARDIOVASCULAR DISEASE 12/29/23 documented as of this encounter
--- OUTSIDE RECORDS SUMMARY | 2024-09-03 20:35 | XMS_ITS | Encounter Summary ---
Author Organization [facility] Address [facility] [place] [address] [place] [address] Care Team Providers Care Videotape Recording Engineer Name Role Phone Megan Infante MD Primary Care Provider [phone] Zaki Ortiz MD Unavailable [phone] Concetta Acevedo MD Unavailable + [phone] Jeff Grace MD Unavailable Brit Gonzáles MD Unavailable Reason for Visit * Reason Onset Date Comments Forms 05/01/2024 Encounter Details Date Type Department Care Team (Late st Contact Info) Description 05/01/2024 Telephone [facility] [address] [place] [address] Brit Gonzáles MD [address] [place] [address] Forms Social History Tobacco Use Types Packs/Day Years Used Date Smoking Tobacco: Former Passive Smoke Exposure: Past Smokeless Tobacco: Former Chew Alcohol Use Standard Drinks/Week Comments Yes 0 (1 standard drink = 0.6 oz pur e alcohol) 4 beers per week [facility] Utilities Answer Date Recorded In the past 12 months has [employer], gas, oil, or water [employer] threatened to shut off services in your [...] declined 02/16/2023 How often do you attend congregational or zoroastrianism serv ices? Patient declined 02/16/2023 Do you belong to any clubs o r organizations such as congregational groups, unions, fraternal or athletic groups, or [...] Date Author Status No 07/12/2023 6:58 PM GAS ENGINE REPAIRER Liliana Gutierrez RN Active documented in this encounter Progress Notes * Fina Alexandra - 07/07/2024 2:59 PM CST A new form has been faxed for Dr. Gonzáles to sign. The pt surgery was r/s. Dr. Gonzáles has signed this and faxed this back. ENGINE REPAIRER * Fina Alexandra - 05/16/2024 3:54 PM [...] Contact Info) Description 09/25/2024 2:00 PM GAS ENGINE REPAIRER Appointment [facility] [address] [place] [address] Zayra Powell, [facility] [address] [place] [address] 10/16/2024 3:30 PM GAS ENGINE REPAIRER Office Visit [facility] [address] [place] [address] Brit Gonzáles MD [address] [place] [address] documented as of this encounter Goals Goal [...] documented as of this encounter Care Teams Videotape Recording Engineer Relationship Specialty Start Date End Date Megan Infante MD [address] [facility] [place] [address] PCP - General FAMILY PRACTICE 04/06/16 Zaki Ortiz MD [address] [facility] [place] [address] Consulting Physician PULMONARY DISEASE 07/12/19 Concetta Acevedo MD [address] [place] [address] Surgeon NEUROLOGICAL SURGERY 12/16/22 Jeff Grace MD [address] [place] [address] Consulting Physician INTERNAL MEDICINE 02/11/23 Brit Gonzáles MD [address] [place] [address] Consulting Physician CARDIOVASCULAR DISEASE 12/29/23 documented as of this encounter
--- OUTSIDE RECORDS SUMMARY | 2024-09-03 20:35 | XMS_ITS | Encounter Summary ---
Author Organization [facility] Address [facility] [place] [address] [place] [address] Care Team Providers Care Crane Man Name Role Phone Megan Infante MD Primary Care Provider [phone] Zaki Ortiz MD Unavailable [phone] Concetta Acevedo MD Unavailable + [phone] Jeff Grace MD Unavailable Brit Gonzáles MD Unavailable Encounter Details Date Type Department Care Team (Late st Contact Info) Description 04/27/2024 2:48 PM CDT - 04/27/2024 4:10 PM CDT Hospital Encounter [facility] [address] [place] [address] Zayra Powell, [facility] [address] [place] [address] Discharge Disposition: Home or Self Care (Routine Discharge) Social History Tobacco Use Types Packs/Day Years Used Date Smoking Tobacco: Former Passive Smoke Exposure: Past Smokeless Tobacco: Former Chew Alcohol Use Standard Drinks/Week Comments Yes 0 (1 standard drink = 0.6 oz pur e alcohol) 4 beers per week [facility] Utilities Answer Date Recorded In the [...] How often do you attend rastafari or spiritism serv ices? Patient declined 02/16/2023 [...] move on to questions 3-9 0 12/01/2021 [facility] - [...] st Contact Info) Description 09/25/2024 2:00 [address] AIDE [address] [facility] [address] [place] [address] [address] Zayra Powell, DIGITAL MEDIA ANALYST [address] [place] [address] 10/16/2024 3:30 PM BLIND AIDE Office Visit [facility] [address] [place] [address] [place] [phone] Brit Gonzáles MD [address] [place] [address] documented as of this encounter Goals Goal [...] MMOL/L 04/27/2024 3:13 PM CDT [facility] POTASSIUM S/P/B 4.6 3.5 - 5.1 MMOL/L 04/27/2024 3:13 PM CDT [facility] CHLORIDE S/P/B 103 98 - 107 MMOL/L 04/27/2024 3:13 PM CDT [facility] CO2 32.7(H) 21.0 - 32.0 MMOL/L 04/27/2024 3:13 PM CDT [facility] GLUCOSE 114(H) 70 - 99 MG/DL 04/27/2024 3:13 PM CDT [facility] Comment: FASTING GLUCOSE 100 TO 125 MG/DL IS CONSISTENT WITH IMPAIRED FASTING GLUCOSE. FASTING GLUCOSE >125 MG/DL IS CONSISTENT WITH DIABETES. RANDOM GLUCOSE >200 MG/DL WITH HYPERGLYCEMIC SYMPTOMS IS CONSISTENT WITH DIABETES. PER ADA GUIDELINES BUN 43(H) 6 - 24 MG/DL 04/27/2024 3:13 PM CDT [facility] CREATININE S/P/B 1.65(H) 0.70 - 1.30 MG/DL 04/27/2024 3:13 PM CDT [facility] CALCIUM S/P/B 9.2 8.4 - 10.5 MG/DL 04/27/2024 3:13 PM CDT [facility] ANION GAP 2.3(L) 5.0 - 15.0 MMOL/L 04/27/2024 3:13 PM CDT [facility] OSMOLALITY (CALC) 298 MOSM/KG 024 3:13 PM CDT [facility] Comment:REFERENCE RANGE NOT ESTABLISHED GFR ESTIMATE 45(L) >89 ML/MIN/1. 73 M2 04/27/2024 3:13 PM CDT [facility] GFR NOTES GFR REFERENCE S: 04/27/2024 3:13 PM CDT [facility] Comment: THE ESTIMATED GFR IS [...] m2 04/27/2024 2:55 PM CDT Zayra Powell [facility] LABORATORY Final Result [facility] [address] [place] [address], * (ABNORMAL) CBC W/DIFF AUTOMATED (04/27/2024 2:55 PM CDT) WBC 7.40 4.00 - 10.80 x10'3/uL 04/27/2024 3:16 PM CDT [facility] RBC 4.45(L) 4.50 - 6.10 x10'6/uL 04/27/2024 3:16 PM CDT [facility] HGB 12.7(L) 13.0 - 18.0 G/DL 04/27/2024 3:16 PM CDT [facility] HCT 39.7 37.0 - 52.0 % 04/27/2024 3:16 PM CDT [facility] MCV 89.2 78.0 - 100.0 FL 04/27/2024 3:16 PM CDT [facility] MCH 28.5 27.0 - 31.0 PG 04/27/2024 3:16 PM CDT [facility] MCHC 32.0(L) 33.0 - 36.0 G/DL 04/27/2024 3:16 PM CDT [facility] RDW 16.9(H) 11.5 - 14.5 % 04/27/2024 3:16 PM CDT [facility] PLT 115(L) 150 - 350 x10'3/uL 04/27/2024 3:16 PM CDT [facility] MPV 10.0 7.4 - 10.4 FL 04/27/2024 3:16 PM CDT [facility] CBC COMMENT NORMAL REFERENCE RANGE NOT ESTABLISHED FOR THE PROPORTIONAL LEUKOCYTE DIFFERENTIAL. 04/27/2024 3:16 PM CDT [facility] NEUTROPHILS % 64.6 % 04/27/2024 3:44 PM CDT [facility] LYMPHOCYTES % 16.5 % 04/27/2024 3:44 PM CDT [facility] MONOCYTES % 12.8 % 04/27/2024 3:44 PM CDT [facility] EOSINOPHILS % 5.3 % 04/27/2024 3:44 PM CDT [facility] BASOPHILS % 0.5 % 04/27/2024 3:44 PM CDT [facility] IMMATURE GRANS % 0.3 % 04/27/20 3:44 PM CDT [facility] NRBC % 0.0 % 04/27/2024 3:44 PM CDT [facility] ABS. NEUTROPHILS 4.78 1.60 - 8.30 x10'3/uL 04/27/2024 3:44 PM CDT [facility] ABS. LYMPHOCYTES 1.22 0.80 - 4.70 x10'3/uL 04/27/2024 3:44 PM CDT [facility] ABS. MONOCYTES 0.95 0.00 - 1.50 x10'3/uL 04/27/2024 3:44 PM CDT [facility] ABS. EOSINOPHILS 0.39 0.00 - 0.40 x10'3/uL 04/27/2024 3:44 PM CDT [facility] ABS. BASOPHILS 0.04 0.00 - 0.20 x10'3/uL 04/27/2024 3:44 PM CDT [facility] ABS. IMMATURE GRANULOCYTES 0.02 0.00 - 0.03 x10'3/uL 04/27/2024 3:44 PM CDT [facility] ABS. NUCLEATED RBC'S 0.00 0.00 - 0.01 x10'3/uL 04/27/2024 3:44 PM CDT [facility] PLT MORPH. DECREASED 04/27/2024 3:44 PM CDT [facility] RBC MORPHOLOGY 2+ 04/27/2024 3:44 PM CDT [facility] Comment: ANISOCYTOSIS 2+ POIKILOCYTOSIS 1+ MICROCYTES 04/27/2024 2:55 PM CDT Zayra SPAIN[facility] LABORATORY Final Result [facility] [address] [place] [address], documented in this encounter Visit Diagnoses Diagnosis 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) documented in this encounter Additional Health Concerns Assessment Noted Time PHQ-9 Depression Total Score: 0 12/02/19 22 1:18 PM CDT documented as of this encounter Care Teams Crane Man Relationship Specialty Start Date End Date Megan Infante MD [address] [place] [address] PCP - General FAMILY PRACTICE 04/06/16 Zaki Ortiz MD [address] [place] [phone] Consulting Physician PULMONARY DISEASE 07/12/19 Concetta Acevedo MD [address] [place] [address] Surgeon NEUROLOGICAL SURGERY 12/16/22 Jeff Grace MD [address] [place] [address] Consulting Physician INTERNAL MEDICINE 02/11/23 Brit Gonzáles MD [address] [place], [place] [phone] Consulting Physician CARDIOVASCULAR DISEASE 12/29/23 documented as of this encounter
--- OUTSIDE RECORDS SUMMARY | 2024-09-03 20:35 | XMS_ITS | Encounter Summary ---
Author Organization [facility] Address [facility]6 [facility] [place] [address] [place] [address] Care Team Providers Care Mental Health Case Manager Name Role Phone Megan Infante MD Primary Care Provider [phone] Zaki Ortiz MD Unavailable [phone] Concetta Acevedo MD Unavailable + [phone] Jeff Grace MD Unavailable Brit Gonzáles MD Unavailable Encounter Details Date Type Department Care Team (Late st Contact Info) Description 04/27/2024 Orders Only [facility] [address] [place] [phone] Zayra Powell, SCIENTIFIC PUBLICATIONS EDITOR [address] [place] [address] Social History Tobacco Use Types Packs/Day Years Used Date Smoking Tobacco: Former Passive Smoke Exposure: Past Smokeless Tobacco: Former Chew Alcohol Use Standard Drinks/Week Comments Yes 0 (1 standard drink = 0.6 oz pur e alcohol) 4 beers per week [facility] Utilities Answer Date Recorded In the past 12 months has [employer], gas, oil, or water [employer] threatened to shut off services in your [...] How often do you attend uatsdin or christian serv ices? Patient declined 02/16/2023 [...] on to questions 3-9 0 12/01/2021 [facility] - [...] Assessment Author Status No 07/12/2023 6:58 PM CHOCOLATE COATER Liliana Gutierrez RN Active documented as of this encounter Mental Status * Because of a physical, mental, or emotional condition, do you have serious difficulty concentrating, remembering, or making decisions? Answer Entry Date Author Status No 07/12/2023 6:58 PM CHOCOLATE COATER Liliana Gutierrez RN Active documented in this encounter Plan of Treatment Upcoming Encounters Date Type Department Care Team (Late st Contact Info) Description 09/25/2024 2:00 PM CHOCOLATE COATER Appointment [facility] [address] [facility] [place] [address] Zayra Powell, SCIENTIFIC PUBLICATIONS EDITOR [address] [place] [address] 10/16/2024 3:30 PM CHOCOLATE COATER Office Visit [facility] [address] [facility] [place] [address] Brit Gonzáles MD [address] [place] [address] documented as of this encounter Goals Goal Patient Goal Type Associated Problems Recent Progress Patient-Stated? Author Family - family caregiver with be involved in care transitions and discharge planning Lifestyle No Karen Quezada RN documented as of this encounter Results * (ABNORMAL) BASIC METABOLIC PANEL (04/27/2024 2:55 PM CDT) SODIUM S/P/B 138 136 - 145 MMOL/L 04/27/2024 3:13 PM CDT [facility] POTASSIUM S/P/B 4.6 3.5 - 5.1 MMOL/L 04/27/2024 3:13 PM CDT [facility] CHLORIDE S/P/B 103 98 - 107 MMOL/L 04/27/2024 3:13 PM CDT [facility] CO2 32.7(H) 21.0 - 32.0 MMOL/L 04/27/2024 3:13 PM CDT [facility] GLUCOSE 114(H) 70 - 99 MG/DL 04/27/2024 3:13 PM T [facility] Comment: FASTING GLUCOSE 100 TO 125 MG/DL IS CONSISTENT WITH IMPAIRED FASTING GLUCOSE. FASTING GLUCOSE >125 MG/DL IS CONSISTENT WITH DIABETES. RANDOM GLUCOSE >200 MG/DL WITH HYPERGLYCEMIC SYMPTOMS IS CONSISTENT WITH DIABETES. PER ADA GUIDELINES BUN 43(H) 6 - 24 MG/DL 04/27/2024 3:13 PM CDT [facility] CREATININE S/P/B 1.65(H) 0.70 - 1.30 MG/DL 04/27/2024 3:13 PM CDT [facility] CALCIUM S/P/B 9.2 8.4 - 10.5 MG/DL 04/27/2024 3:13 PM T [facility] ANION GAP 2.3(L) 5.0 - 15.0 MMOL/L 04/27/2024 3:13 PM T [facility] OSMOLALITY (CALC) 298 MOSM/KG 024 3:13 PM T [facility] Comment:REFERENCE RANGE NOT ESTABLISHED GFR ESTIMATE 45(L) >89 ML/MIN/1. 73 M2 04/27/2024 3:13 PM T [facility] GFR NOTES GFR REFERENCE S: 04/27/2024 3:13 PM T [facility] Comment: THE ESTIMATED GFR IS [...] PM CDT Zayra SPAINP LABORATORY Final Result [facility] [address] [place] [address], * (ABNORMAL) CBC W/DIFF AUTOMATED (04/27/2024 2:55 PM CDT) WBC 7.40 4.00 - 10.80 x10'3/uL 04/27/2024 3:16 PM CDT [facility] RBC 4.45(L) 4.50 - 6.10 x10'6/uL 04/27/2024 3:16 PM CDT [facility] HGB 12.7(L) 13.0 - 18.0 G/DL 04/27/2024 3:16 PM CDT [facility] HCT 39.7 37.0 - 52.0 % 04/27/2024 3:16 PM CDT [facility] MCV 89.2 78.0 - 100.0 FL 04/27/2024 3:16 PM CDT [facility] MCH 28.5 27.0 - 31.0 PG 04/27/2024 3:16 PM CDT [facility] MCHC 32.0(L) 33.0 - 36.0 G/DL 04/27/2024 3:16 PM CDT [facility] RDW 16.9(H) 11.5 - 14.5 % 04/27/2024 3:16 PM CDT [facility] PLT 115(L) 150 - 350 x10'3/uL 04/27/2024 3:16 PM CDT [facility] MPV 10.0 7.4 - 10.4 FL 04/27/2024 3:16 PM CDT [facility] CBC COMMENT NORMAL REFERENCE RANGE NOT ESTABLISHED FOR THE PROPORTIONAL LEUKOCYTE DIFFERENTIAL. 04/27/2024 3:16 PM CDT [facility] NEUTROPHILS % 64.6 % 04/27/2024 3:44 PM CDT [facility] LYMPHOCYTES % 16.5 % 04/27/2024 3:44 PM CDT [facility] MONOCYTES % 12.8 % 04/27/2024 3:44 PM CDT [facility] EOSINOPHILS % 5.3 % 04/27/2024 3:44 PM CDT [facility] BASOPHILS % 0.5 % 04/27/2024 3:44 PM CDT [facility] IMMATURE GRANS % 0.3 % 04/27/20 3:44 PM CDT [facility] NRBC % 0.0 % 04/27/2024 3:44 PM CDT [facility] ABS. NEUTROPHILS 4.78 1.60 - 8.30 x10'3/uL 04/27/2024 3:44 PM CDT [facility] ABS. LYMPHOCYTES 1.22 0.80 - 4.70 x10'3/uL 04/27/2024 3:44 PM CDT [facility] ABS. MONOCYTES 0.95 0.00 - 1.50 x10'3/uL 04/27/2024 3:44 PM CDT [facility] ABS. EOSINOPHILS 0.39 0.00 - 0.40 x10'3/uL 04/27/2024 3:44 PM CDT [facility] ABS. BASOPHILS 0.04 0.00 - 0.20 x10'3/uL 04/27/2024 3:44 PM CDT [facility] ABS. IMMATURE GRANULOCYTES 0.02 0.00 - 0.03 x10'3/uL 04/27/2024 3:44 PM CDT [facility] ABS. NUCLEATED RBC'S 0.00 0.00 - 0.01 x10'3/uL 04/27/2024 3:44 PM CDT [facility] PLT MORPH. 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)- Primary documented in this encounter Additional Health Concerns Assessment Noted Time PHQ-9 Depression Total Score: 0 12/02/19 22 1:18 PM CDT documented as of this encounter Care Teams Mental Health Case Manager Relationship Specialty Start Date End Date Megan Infante MD [address] [place] [phone] PCP - General FAMILY PRACTICE 04/06/16 Zaki Ortiz MD [address] [place] [address] Consulting Physician PULMONARY DISEASE 07/12/19 Romeo-Concetta Pond MD [address] [place] [address] Surgeon NEUROLOGICAL SURGERY 12/16/22 Jeff Grace MD [address] [place] [address] Consulting Physician INTERNAL MEDICINE 02/11/23 Brit Gonzáles MD [address] [place] [address] Consulting Physician CARDIOVASCULAR DISEASE 12/29/23 documented as of this encounter
--- OUTSIDE RECORDS SUMMARY | 2024-09-03 20:35 | XMS_ITS | Encounter Summary ---
Author Organization [facility] - [facility] Address [facility] [place] [address] [place] [address] Care Team Providers Care Quarantine Officer Name Role Phone Megan Infante MD Primary Care Provider [phone] Zaki Ortiz MD Unavailable [phone] Concetta Acevedo MD Unavailable + [phone] Jeff Grace MD Unavailable Brit Gonzáles MD Unavailable Reason for Referral * Physical Medicine (Routine) - New Request Specialty Diagnoses / Procedures Referred By Yung sequeira Referred To Contact PHYSICAL THERAPY Diagnoses Chronic combined systolic and diastolic congestive heart failure ([facility]) Procedures OFFICE/OUTPATIENT NEW LOW MDM 30-44 MINUTES OFFICE/OUTPT VISIT,NEW,LEVL IV OFFICE/OUTPT VISIT,NEW,LEVL V OFFICE/OUTPT VISIT,EST,LEVL III OFFICE/OUTPT VISIT,EST,LEVL IV OFFICE/OUTPT VISIT,EST,LEVL V Sapphire Peterson NP [address] [place] [address] Phone: tel: fax: Referral ID Status Reason Start Date Expiration Date Visits Requested Visits Authorized [id number] New Request Physical Therapy 08/02/2025 1 1 ISTRY PHYSICS TEACHER * (Routine) - New Request Specialty Diagnoses / Procedures Referred By Contac t Referred To Contact Procedures OT Eval and Treat Sapphire Peterson NP [address] [place] [address] Phone: tel: fax: Referral ID Status Reason Start Date Expiration Date V isits Requested Visits Authorized [id number] New Request 08/01/2024 08/01/2025 1 1 ISTRY PHYSICS TEACHER * (Routine) - New Request Specialty Diagnoses / Procedures Referred By Yung t Referred To Contact Procedures PT Eval and Treat Sapphire Peterson NP [address] [place] [address] Phone: tel: fax: Referral ID Status Reason Start Date Expiration Date V isits Requested Visits Authorized [id number] New Request 08/01/2024 08/01/2025 1 1 ISTRY PHYSICS TEACHER Reason for Visit * Reason Comments Shortness Of Breath * Auth/Cert (Routine) Specialty Diagnoses / Procedures Referred By Contac t Referred To Contact Diagnoses Shortness of breath Hyperkalemia Chronic pain CKD (chronic kidney disease) CHF exacerbation ([facility]) Procedures NA Cornelius Mathur MD [address] [place] [address] Phone: tel: fax: Referral ID Status Reason Start Date Expiration Date Visits Re quested Visits Authorized [id number] 1 1 Encounter Details Date Type Department Care Team (Late st Contact Info) Description 07/31/2024 3:15 PM CHEMISTRY PHYSICS TEACHER - 08/03/2024 1:08 PM CHEMISTRY PHYSICS TEACHER Hospital Encounter [facility] [address] [place] [address] Jena Kong MD [address] [place] [address] [id number] Megan Infante MD [address] [place] [address] Cornelius Mathur MD [address] [place] [address] Shortness Of Breath Discharge Disposition: [...] In the past 12 months has e [employer], gas, oil, or water [employer] threatened to shut off services in your [...] How often do you attend rastafari or sabianism serv ices? Patient declined 02/16/2023 [...] move on to questions 3-9 0 12/01/2021 [facility] - [...] any time in the past 12 m [facility], were you homeless or living in [...] Comments Blood Pressure 116/72 08/03/2024 8:50 AM CHEMISTRY PHYSICS TEACHER Pulse 72 08/03/2024 8:50 AM CHEMISTRY PHYSICS TEACHER Temperature 36.2 ??C (97.2 ??F) 08/03/2024 8:50 AM CS T Respiratory Rate 18 08/03/2024 8:50 AM CHEMISTRY PHYSICS TEACHER Oxygen Saturation 95% 08/03/2024 8:50 AM CHEMISTRY PHYSICS TEACHER Inhaled Oxygen Concentration - - Weight 103 kg (227 lb) 08/03/2024 5:05 AM CHEMISTRY PHYSICS TEACHER Height 167.6 cm (5' 6 ) 07/31/2024 5:49 PM CHEMISTRY PHYSICS TEACHER Body Mass Index 36.64 07/31/2024 5:49 PM CHEMISTRY PHYSICS TEACHER documented in this encounter Functional Status * Question Answer Date of Assessment Author Status Do you have serious difficulty walking or climbing stairs? Yes 07/31/2024 5:50 PM CHEMISTRY PHYSICS TEACHER Abril Contreras RN Activ e * Question Answer Date of Assessment Author Status Do you have difficulty dressing or bathing? Yes 07/31/2024 5:50 PM CHEMISTRY PHYSICS TEACHER Abril Contreras RN A ctive Because of a physical, mental, or emotional condition, do you have difficulty doing errands alone such as visiting a doctor's office or shopping? No 07/31/2024 5:50 PM CHEMISTRY PHYSICS TEACHER Abril Contreras RN Active * Are you [...] through Care Everywhere. * Nystatin (Topical), ADULT (South Sudanese) documented in this encounter Medications at Time [...] for Documentation Clarification Obie Marquez ; VISIT [id number] Query Response Sent: 08/15/24 17:02 CHEMISTRY PHYSICS TEACHER From: Sapphire Peterson NP Query question: Based on medical judgment and consideration of these clinical indicators, the following condition was evaluated, monitored and/or treated during this episode of care Provider response: Acute on chronic systolic heart failure ISTRY PHYSICS TEACHER Original Query Sent: 08/08/24 06:09 CHEMISTRY PHYSICS TEACHER From: Yari Gallardo, Clinical Healthcare Consulting Manager - RN, BSN To: Sapphire Peterson NP [...] - 08/03 Lasix 80 mg IV Daily ISTRY PHYSICS TEACHER * Penny Bay RN - 08/03/2024 11:44 AM CSTSummary: FINAL D/C Note Final D/C Note Destination: Home Transportation: private vehicle New DME for home: none Referral sent to [facility] for PT. Wound Center appt scheduled and on AVS. ISTRY PHYSICS TEACHER * Penny Bay RN - 08/03/2024 11:42 [...] private vehicle. He has an appt with [facility] next week and is on his AVS. Referral has also been sent to [facility] out patient clinic for PT. ISTRY PHYSICS TEACHER * Sapphire Peterson NP - 08/03/2024 11:36 AM CST Reviewed discharge with Dr. Infante including insulin and coumadin changes. Patient okay to discharge at this time. ISTRY PHYSICS TEACHER * Abril Contreras RN - 08/03/2024 11:27 [...] Goal: Adequate oxygenation Outcome: Adequate for Discharge ISTRY PHYSICS TEACHER * Tasneem Randolph, OT - 08/03/2024 9:24 AM CST OT Initial Evaluation Discharge Recommendation: home with assistance Activity Recommendation for health sciences department chair: UP with 1 2ww GB 08/03/24 0700 [...] assistance to don socks, reports he wears 911 telecommunicator shoes where feetslide in at home. Pt has a water safety instructor to assist with donning pants. Bed Mobility [...] Response to education this date verbalized understanding ISTRY PHYSICS TEACHER * Penny Bay RN - 08/03/2024 9:17 AM CSTSummary: Subsequent IMM notice 08/03/24 0917 Forms Reinforcement Important Message from Medicare (Subsequent IMM) Signed Copy delivered Reviewed follow-up copy of the Important Message from Medicare with Patient. The Patient acknowledged understanding. A copy of the form was left with the Patient. ISTRY PHYSICS TEACHER * Ally Infante RN - 08/02/2024 9:56 [...] Goal: Adequate oxygenation Outcome: Progressing Note: WNL ISTRY PHYSICS TEACHER * Marlin Darnell RN - 08/02/2024 2:08 [...] Confusion (Acute vs Chronic) 08/02/2024 1408 by Marlin Darnell RN Outcome: [...] 1408 by Marlin Darnell RN Outcome: Progressing ISTRY PHYSICS TEACHER * Ally Infante RN - 08/01/2024 10:06 [...] Outcome: Progressing Note: 99% on room air. ISTRY PHYSICS TEACHER * Abril Contreras RN - 08/01/2024 6:05 [...] oxygenation Outcome: Progressing Note: 97% on RA ISTRY PHYSICS TEACHER * Penny Bay RN - 08/01/2024 5:05 PM CSTSummary: Initial D/C plan 08/01/24 1705 Discharge Plan Discharge Plan Discharge to Home ESTIVEN spoke with Obie regarding his discharge plan. He states he is planning to return home via private vehicle and prefers to go to out-patient PT at [facility]. ISTRY PHYSICS TEACHER * LALIT Cheney - 08/01/2024 2:42 PM [...] has been treated in the past at [facility]. Last visit 05/30/2024. Past Medical History: Diagnosis Date Abnormal ankle brachial index (STELLA) Acute on chronic heart failure, unspecified heart failure type ([facility]) Anxiety Aortic valve stenosis Arthritis Asthma, mild persistent ([facility]) 04/06/2021 Atrial fibrillation ([facility]) s/p PVI/WACA 10/2015 Bilateral leg pain Carotid disease, bilateral ([facility]) CHF (congestive heart failure) ([facility]) Claudication ([facility] COPD (chronic obstructive pulmonary disease) ([facility]) Coronary artery disease Diabetes mellitus, type II ([facility]CC) Edema 04/19/2018 2+ pitting History of [...] (Incomplete) performed by Kilo Navarro MD at [facility] OR COLONOSCOPY N/A 01/27/2022 COLONOSCOPY WITH COLD SNARE POLYPECTOMY performed by Kilo Navarro MD at [facility] OR HIP ARTHROPLASTY Left KNEE ARTHROPLASTY [...] nursing note reviewed. Exam conducted with a financial compliance examiner present. Constitutional: Appearance: Normal appearance. HENT: Head: [...] encounter of 07/31/24 XR CHEST PORTABLE Narrative [place] [address] [place] [address] Examination: Portable chest. Exam time: 1523 hours. [...] segments of the right lower extremity, though SOFTWARE INSTALLER waveform could be suggestive of inflow disease. Lt Lower Ext: 0-19% stenosis noted in all segments of the left lower extremity, though SOFTWARE INSTALLER waveform could be suggestive of inflow disease. [...] Jeff Grace MD at 08/01/2024 4:46 PM CHEMISTRY PHYSICS TEACHER ISTRY PHYSICS TEACHER ISTRY PHYSICS TEACHER * Wei Frazier PT - 08/01/2024 1:37 [...] CKD (chronic kidney disease) [N18.9] CHF exacerbation ([facility]) [I50.9] Past Medical History: Diagnosis Date Abnormal ankle brachial index (STELLA) Acute on chronic heart failure, unspecified heart failure type ([facility]) Anxiety Aortic valve stenosis Arthritis Asthma, mild persistent ([facility]) 04/06/2021 Atrial fibrillation ([facility]) s/p PVI/WACA 10/2015 Bilateral leg pain Carotid disease, bilateral ([facility]) CHF (congestive heart failure) ([facility]) Claudication ([facility]) COPD (chronic obstructive pulmonary disease) ([facility]) Coronary artery disease Diabetes mellitus, type II ([facility]) Edema 04/19/2018 2+ pitting History of blood transfusion Hyperlipidemia Hypertension LV dysfunction Non-pressure chronic ulcer of left calf limited to breakdown of skin ([facility]) 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 breakdown of skin ([facility] Osteoarthritis PAD (peripheral artery disease) ([facility]) Pneumonia Restless leg syndrome S/P aortic valve replacement with bioprosthetic valve 2013 1999, 2013 SOB (shortness of breath) Stroke ([facility]) Varicose veins of bilateral lower extremities with other complications Weight gain with edema Past Surgical History: Procedure Laterality Date APPENDECTOMY CARDIAC VALVE REPLACEMENT 1999 CARDIAC VALVE REPLACEMENT 2013 CARDIOVERSION EXTERNAL 10/01/2015 CARDIOVERSION EXTERNAL 04/14/2012 COLONOSCOPY N/A 03/18/2021 COLONOSCOPY (Incomplete) performed by Kilo Navarro MD at [facility] OR COLONOSCOPY N/A 01/27/2022 COLONOSCOPY WITH COLD SNARE POLYPECTOMY performed by Kilo Navarro MD at [facility] OR HIP ARTHROPLASTY Left KNEE ARTHROPLASTY [...] safe. He has connects with PT in [place] and will explore. He reports he just [...] CKD (chronic kidney disease) [N18.9] CHF exacerbation ([facility]) [I50.9]. Patient is demonstrating no significant mobility [...] and all needs met per pt report. ISTRY PHYSICS TEACHER * Penny Bay, RN - 08/01/2024 11:59 AM CSTSummary: Initial Assessment 08/01/24 1159 Referral Data Source of Information Patient Patient Information Primary Caregiver Self Current living Situation Children Type of Residence Private residence Support System Immediate family Are you employed? 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 Healthcare Status Patient Declines Baseline ADL's Functional Status Independent;Minimum assistance Active DME Cane;Walker;Oxygen;Other (comment) (shower seat; O2 from [employer]) Behavior Oriented;Cooperative Communication Talks;Understands speaking;Understands South Sudanese Current Services Being Provided Other Services Non-medical help ([employer]; 2days/week) Psychosocial Need Indicator Mental health concerns No Diagnosis/prognosis resulting in poor adjustment or coping with illness No Diagnosis/prognosis with anticipated outcome of major lifestyle changes, including change in terminologist living environment No Complex Family concerns No [...] following: Current PCP: Current Pharm: [facility] in [place] Home Environment: ; Lives in a basement apartment in his daughter's house with her and her and 2 children Employment: retired, [employer] Home DME: cane, walker, shower seat, oxygen ([employer]) PLOF: ind - min assist HCPOA on file: No, declined information Current with Home Health: No Current with Homemaker Services: Yes [employer]; 2 days/week Current Out Patient Services: none Anticipated D/C Plan: Return home and referrals to out-patient PT at [facility] Anticipated D/C transportation: private vehicle [...] with patient CM will continue to follow ISTRY PHYSICS TEACHER * Sapphire Peterson NP - 08/01/2024 10:36 [...] consult wound for ulcers to lower extremities. ISTRY PHYSICS TEACHER ISTRY PHYSICS TEACHER * Penny Bay RN - 08/01/2024 9:42 [...] pending progress and assessment from Dr. Infante ISTRY PHYSICS TEACHER * Ally Infante RN - 07/31/2024 9:09 [...] Outcome: Progressing Note: WDL on room air. ISTRY PHYSICS TEACHER * Abril Contreras RN - 07/31/2024 6:29 [...] oxygenation Outcome: Progressing Note: 94% on RA ISTRY PHYSICS TEACHER documented in this encounter H&P Notes * [...] a history of chronic pain and takes Sassafras 10-325 at home. He is complaining of [...] chronic heart failure, unspecified heart failure type ([facility]) Anxiety Aortic valve stenosis Arthritis Asthma, mild persistent ([facility]) 04/06/2021 Atrial fibrillation ([facility]) s/p PVI/WACA 10/2015 Bilateral leg pain Carotid disease, bilateral ([facility]) CHF (congestive heart failure) ([facility]) Claudication ([facility] COPD (chronic obstructive pulmonary disease) ([facility]) Coronary artery disease Diabetes mellitus, type II ([facility]) Edema 04/19/2018 2+ pitting History of blood transfusion Hyperlipidemia Hypertension LV dysfunction Non-pressure chronic ulcer of left calf limited to breakdown of skin ([facility]) 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 breakdown of skin ([facility]) Osteoarthritis PAD (peripheral artery disease) ([facility]) Pneumonia Restless leg syndrome S/P aortic valve replacement with bioprosthetic valve 2013 SOB (shortness of breath) Stroke ([facility]) Varicose veins of bilateral lower extremities with other complications Weight gain with edema Past Surgical History: Procedure Laterality Date APPENDECTOMY CARDIAC VALVE REPLACEMENT 1999 CARDIAC VALVE REPLACEMENT 2013 CARDIOVERSION EXTERNAL 10/01/2015 CARDIOVERSION EXTERNAL 04/14/2012 COLONOSCOPY N/A 03/18/2021 COLONOSCOPY (Incomplete) performed by Kilo Navarro MD at [facility] OR COLONOSCOPY N/A 01/27/2022 COLONOSCOPY WITH COLD SNARE POLYPECTOMY performed by Kilo Navarro MD at [facility] OR HIP ARTHROPLASTY Left KNEE ARTHROPLASTY [...] results found. Assessment Principal Problem: CHF exacerbation ([facility]) SNOMED CT(R): ACUTE EXACERBATION OF CHRONIC CONGESTIVE HEART FAILURE Plan 1.Diuresing with IV Lasix and will likely need an additional day. MEGAN INFANTE MD ISTRY PHYSICS TEACHER documented in this encounter Consult Notes * [...] Therapy AND Handout Diabetes Label Reading Tips [id number] Meal Planning and Carb Counting booklet Teaching [...] and honey buns. SHAYY COX RD, LDN ISTRY PHYSICS TEACHER documented in this encounter ED Notes * Jennifer Mendieta RN - 07/31/2024 4:50 PM CST Cellophane Wrapping Examiner assists pt to stand at bedside to void in the urinal. Pt requests to sit on the edge of the bed for awhile. ISTRY PHYSICS TEACHER * Mayda Mart RN - 07/31/2024 3:27 PM CST Pt arrives via pov c/o sob x 1-2 week pt has had a 20 lb weight gain in 2 months. Pt presents with expiatory wheezes, bilateral leg swelling and weeping. Pt rates pain 9/10 in his leg denies taking pain medications. ISTRY PHYSICS TEACHER * Jena Kong MD - 07/31/2024 3:23 [...] a history of chronic pain and takes Sassafras 10-325 at home. He is complaining of [...] mg total) by mouth nightly at bedtime. 03/24/22[facility] Abstract AGUSTÍN COMER 100-62.5-25 MCG/ACT AEROSOL [...] chronic heart failure, unspecified heart failure type ([facility]) Anxiety Aortic valve stenosis Arthritis Asthma, mild persistent ([facility]) 04/06/2021 Atrial fibrillation ([facility]) s/p PVI/WACA 10/2015 Bilateral leg pain Carotid disease, bilateral ([facility]) CHF (congestive heart failure) ([facility]) Claudication ([facility]) COPD (chronic obstructive pulmonary disease) ([facility]) Coronary artery disease Diabetes mellitus, type II ([facility]) Edema 04/19/2018 2+ pitting History of blood transfusion Hyperlipidemia Hypertension LV dysfunction Non-pressure chronic ulcer of left calf limited to breakdown of skin ([facility]) 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 breakdown of skin ([facility]) Osteoarthritis PAD (peripheral artery disease) ([facility]) Pneumonia Restless leg syndrome S/P aortic valve replacement with bioprosthetic valve 2013 SOB (shortness of breath) Stroke ([facility]) Varicose veins of bilateral lower extremities with other complications Weight gain with edema PAST SURGICAL HISTORY: Past Surgical History: Procedure Laterality Date APPENDECTOMY CARDIAC VALVE REPLACEMENT 1999 CARDIAC VALVE REPLACEMENT 2013 CARDIOVERSION EXTERNAL 10/01/2015 CARDIOVERSION EXTERNAL 04/14/2012 COLONOSCOPY N/A 03/18/2021 COLONOSCOPY (Incomplete) performed by Kilo Navarro MD at [facility] OR COLONOSCOPY N/A 01/27/2022 COLONOSCOPY WITH COLD SNARE POLYPECTOMY performed by Kilo Navarro MD at [facility] OR HIP ARTHROPLASTY Left KNEE ARTHROPLASTY [...] hospital encounter of 07/31/24 ECG [address] [place] [address] Test Date: 2024-07-31 Pat Name: OBIE SIMS Department: 3 Room: EXAM 404 Gender: Male Eyeglass Cutter: : 1955 Requested By: JENA KONG Order Number: [id number] Reading MD: Measurements Intervals [place] Rate: 67 P: TX: 0 QRS: -24 QRSD: 140 T: 122 [...] XR CHEST PORTABLE Final Result by User, [id number] (07/31 1622) [facility] [address] [place] [address] Examination: Portable chest. Exam time: 1523 hours. [...] sepsis, urinary tract infection, coagulopathy, [facility], cardiology notes and echocardiogram have been reviewed Patient will be given Lasix and 1 Sassafras here EKG independently interpreted by me as [...] Impression Shortness of breath (Primary) CHF exacerbation ([facility]) CKD (chronic kidney disease) Chronic pain Hyperkalemia Disposition: Admit Jena Kong MD 07/31/24 172 ISTRY PHYSICS TEACHER documented in this encounter Plan of Treatment Upcoming Encounters Date Type Department Care Team (Late st Contact Info) Description 09/25/2024 2:00 PM CHEMISTRY PHYSICS TEACHER Appointment [facility] [address] [place] [address] Zayra Powell, [facility] [address] [place] [address] 10/16/2024 3:30 PM CHEMISTRY PHYSICS TEACHER Office Visit [facility] [address] [place] [address] Brit Gonzáles MD [address] [place], [place] [address] Scheduled Referrals Name Type Priority Associated Diagnoses Orde r Schedule Ambulatory referral to Physical Therapy Referral Routine Chronic combined systolic and diastolic congestive heart failure ([facility]) Ordered: 08/02/2024 documented as of this encounter Goals Goal Patient Goal Type Associated Problems Recent Progress Patient-Stated? Author Family - family caregiver with be involved in care transitions and discharge planning Lifestyle No Karen Quezada RN documented as of this encounter Procedures Procedure Name Priority Date/Time Associated Diagnosis Comments POCT GLUCOSE - VALLECILLO DOCKED DEVICE Routine 08/03/2024 11:14 AM CHEMISTRY PHYSICS TEACHER POCT GLUCOSE - VALLECILLO DOCKED DEVICE Routine 08/03/2024 6:56 AM CHEMISTRY PHYSICS TEACHER POCT GLUCOSE - VALLECILLO DOCKED DEVICE Routine 08/03/2024 6:40 AM CHEMISTRY PHYSICS TEACHER POCT GLUCOSE - VALLECILLO DOCKED DEVICE Routine 08/03/2024 6:19 AM CHEMISTRY PHYSICS TEACHER PROTHROMBIN TIME, VENOUS Routine 08/03/2024 5:46 AM CHEMISTRY PHYSICS TEACHER COMPREHENSIVE METABOLIC PANEL Routine 08/03/2024 5:46 AM CHEMISTRY PHYSICS TEACHER CBC W/DIFF AUTOMATED Routine 08/03/2024 5:46 AM CHEMISTRY PHYSICS TEACHER POCT GLUCOSE - VALLECILLO DOCKED DEVICE Routine 08/02/2024 8:14 PM CHEMISTRY PHYSICS TEACHER POCT GLUCOSE - VALLECILLO DOCKED DEVICE Routine 08/02/2024 4:10 PM CHEMISTRY PHYSICS TEACHER POCT GLUCOSE - VALLECILLO DOCKED DEVICE Routine 08/02/2024 10:59 AM CHEMISTRY PHYSICS TEACHER POCT GLUCOSE - VALLECILLO DOCKED DEVICE Routine 08/02/2024 6:20 AM CHEMISTRY PHYSICS TEACHER PROTHROMBIN TIME, VENOUS Routine 08/02/2024 5:13 AM CHEMISTRY PHYSICS TEACHER COMPREHENSIVE METABOLIC PANEL Routine 08/02/2024 5:13 AM CHEMISTRY PHYSICS TEACHER CBC W/DIFF AUTOMATED Routine 08/02/2024 5:13 AM CHEMISTRY PHYSICS TEACHER POCT GLUCOSE - VALLECILLO DOCKED DEVICE Routine 08/01/2024 8:50 PM CHEMISTRY PHYSICS TEACHER POCT GLUCOSE - VALLECILLO DOCKED DEVICE Routine 08/01/2024 6:28 PM CHEMISTRY PHYSICS TEACHER POCT GLUCOSE - VALLECILLO DOCKED DEVICE Routine 08/01/2024 5:09 PM CHEMISTRY PHYSICS TEACHER POCT GLUCOSE - VALLECILLO DOCKED DEVICE Routine 08/01/2024 11:53 AM CHEMISTRY PHYSICS TEACHER POCT GLUCOSE - VALLECILLO DOCKED DEVICE Routine 08/01/2024 7:39 AM CHEMISTRY PHYSICS TEACHER POCT GLUCOSE - VALLECILLO DOCKED DEVICE Routine 08/01/2024 6:56 AM CHEMISTRY PHYSICS TEACHER POCT GLUCOSE - VALLECILLO DOCKED DEVICE Routine 08/01/2024 6:35 AM CHEMISTRY PHYSICS TEACHER PROTHROMBIN TIME, VENOUS STAT 08/01/2024 5:24 AM CHEMISTRY PHYSICS TEACHER BASIC METABOLIC PANEL Routine 08/01/2024 5:24 AM CHEMISTRY PHYSICS TEACHER CBC W/DIFF AUTOMATED STAT 08/01/2024 5:24 AM CHEMISTRY PHYSICS TEACHER POCT GLUCOSE - VALLECILLO DOCKED DEVICE Routine 07/31/2024 8:41 PM CHEMISTRY PHYSICS TEACHER POCT GLUCOSE - VALLECILLO DOCKED DEVICE Routine 07/31/2024 6:13 PM CHEMISTRY PHYSICS TEACHER HC URINALYSIS AUTO W/MICRO STAT 07/31/2024 4:57 PM CHEMISTRY PHYSICS TEACHER URINE BACTERIA CULTURE STAT 4:57 PM CHEMISTRY PHYSICS TEACHER XR CHEST PORTABLE STAT 07/31/2024 3:5 5 PM CHEMISTRY PHYSICS TEACHER CULTURE, BACTERIA, BLOOD STAT 07/31/2024 3:43 PM CHEMISTRY PHYSICS TEACHER LACTIC ACID W REFLEX (SEPSIS) STAT 07/31/2024 3:36 PM CHEMISTRY PHYSICS TEACHER PRO-BRAIN NATRIURETIC PEPTIDE STAT 07/31/2024 3:36 PM CHEMISTRY PHYSICS TEACHER PROTHROMBIN TIME, VENOUS STAT 07/31/2024 3:36 PM CHEMISTRY PHYSICS TEACHER COMPREHENSIVE METABOLIC PANEL STAT 07/31/2024 3:36 PM CHEMISTRY PHYSICS TEACHER CBC W/DIFF AUTOMATED STAT 07/31/2024 3:36 PM CHEMISTRY PHYSICS TEACHER TROPONIN, QUANT STAT 07/31/2024 3:36 PM CHEMISTRY PHYSICS TEACHER MAGNESIUM STAT 07/31/2024 3:36 PM CHEMISTRY PHYSICS TEACHER ECG 12-LEAD Routine 07/31/2024 3:32 PM CHEMISTRY PHYSICS TEACHER documented in this encounter Results * POCT glucose (08/03/2024 11:14 AM CHEMISTRY PHYSICS TEACHER) GLUCOSE POC 88 70 - 99 MG/DL 08/03/2024 11:21 AM CHEMISTRY PHYSICS TEACHER [facility] 08/03/2024 11:1 4 AM CHEMISTRY PHYSICS TEACHER us Megan Infante MD POCT ORDERABLES - DEVICE Final R esult Performing Organization Address [facility]/ZIP Co de Phone Number [facility] [address] [place] [address], [place] [phone] * (ABNORMAL) POCT glucose (08/03/2024 6:56 AM CHEMISTRY PHYSICS TEACHER) GLUCOSE POC 101(H) 70 - 99 MG/DL 08/03/2024 6:58 AM CHEMISTRY PHYSICS TEACHER [facility] 08/03/2024 6:56 AM CHEMISTRY PHYSICS TEACHER us Megan Infante MD POCT ORDERABLES - DEVICE Final R esult Performing Organization Address [facility]/[place]UST Co de Phone Number [facility] [address] [place] [address], [place] [phone] * (ABNORMAL) POCT glucose (08/03/2024 6:40 AM CHEMISTRY PHYSICS TEACHER) GLUCOSE POC 67(L) 70 - 99 MG/DL 08/03/2024 6:42 AM CHEMISTRY PHYSICS TEACHER [facility] 08/03/2024 6:40 AM CHEMISTRY PHYSICS TEACHER us Megan Infante MD POCT ORDERABLES - DEVICE Final R esult Performing Organization Address City/[facility]/ZIP Co de Phone Number [facility] [address] [place] [address], [place] [phone] * (ABNORMAL) POCT glucose (08/03/2024 6:19 AM CHEMISTRY PHYSICS TEACHER) GLUCOSE POC 52(L) 70 - 99 MG/DL 08/03/2024 6:21 AM [facility] 08/03/2024 6:19 AM CHEMISTRY PHYSICS TEACHER Megan Infante MD POCT ORDERABLES - DEVICE Final R esult [facility] [address] [place] [address], * (ABNORMAL) COMPREHENSIVE METABOLIC PANEL (08/03/2024 5:46 AM CHEMISTRY PHYSICS TEACHER) SODIUM S/P/B 139 136 - 145 MMOL/L 08/03/2024 6:14 AM [facility] POTASSIUM S/P/B 4.5 3.5 - 5.1 MMOL/L 08/03/2024 6:14 AM [facility] CHLORIDE S/P/B 103 98 - 107 MMOL/L 08/03/2024 6:14 AM [facility] CO2 27.5 21.0 - 32.0 MMOL/L 08/03/2024 6:14 AM [facility] GLUCOSE 66(L) 70 - 99 MG/DL 08/03/2024 6:14 AM [facility] Comment: FASTING GLUCOSE 100 TO 125 MG/DL IS CONSISTENT WITH IMPAIRED FASTING GLUCOSE. FASTING GLUCOSE >125 MG/DL IS CONSISTENT WITH DIABETES. RANDOM GLUCOSE >200 MG/DL WITH HYPERGLYCEMIC SYMPTOMS IS CONSISTENT WITH DIABETES. PER ADA GUIDELINES BUN 46(H) 6 - 24 MG/DL 08/03/2024 6:14 AM [facility] CREATININE S/P/B 1.77(H) 0.70 - 1.30 MG/DL 08/03/2024 6:14 AM [facility] CALCIUM S/P/B 8.9 8.4 - 10.5 MG/DL 08/03/2024 6:14 AM [facility] BILIRUBIN TOTAL S/P/B 1.1(H) 0.2 - 1.0 MG/DL 08/03/2024 6:14 AM [facility] Comment: THIS ASSAY IS NOT RECOMMENDED FOR PATIENTS UNDERGOING TREATMENT WITH ELTROMBOPAG DUE TO THE POTENTIAL FOR FALSELY ELEVATED RESULTS. ALKALINE PHOSPHATASE S/P/B 113 45 - 115 U/L 08/03/2024 6:14 AM [facility] AST 26 15 - 37 U/L 08/03/2024 6:14 AM [facility] ALT 26 16 - 63 U/L 08/03/2024 6:14 AM [facility] TOTAL PROTEIN S/P/B 7.4 6.4 - 8.2 G/DL 08/03/2024 6:14 AM [facility] ALBUMIN S/P/B 3.1(L) 3.4 - 5.0 G/DL 08/03/2024 6:14 AM [facility] ANION GAP 8.5 5.0 - 15.0 MMOL/L 08/03/2024 6:14 AM [facility] OSMOLALITY (CALC) 298 MOSM/KG 024 6:14 AM [facility] Comment:REFERENCE RANGE NOT ESTABLISHED GFR ESTIMATE 41(L) >89 ML/MIN/1. 73 M2 08/03/2024 6:14 AM [facility] GFR NOTES GFR REFERENCE S: 08/03/2024 6:14 AM [facility] Comment: THE ESTIMATED GFR IS [...] FAILURE: <15 ml/min/1.73 m2 08/03/2024 5:46 AM CHEMISTRY PHYSICS TEACHER us Sapphirearacelis Peterson NP LABORATORY Final Result [facility] [address] [place] [address], * (ABNORMAL) CBC W/DIFF AUTOMATED (08/03/2024 5:46 AM CHEMISTRY PHYSICS TEACHER) WBC 8.37 4.00 - 10.80 x10'3/uL 08/03/2024 6:00 AM CHEMISTRY PHYSICS TEACHER [facility] RBC 4.00(L) 4.50 - 6.10 x10'6/uL 08/03/2024 6:00 AM [facility] HGB 11.5(L) 13.0 - 18.0 G/DL 08/03/2024 6:00 AM [facility] HCT 36.6(L) 37.0 - 52.0 % 08/03/2024 6:00 AM [facility] MCV 91.5 78.0 - 100.0 FL 08/03/2024 6:00 AM [facility] MCH 28.8 27.0 - 31.0 PG 08/03/2024 6:00 AM [facility] MCHC 31.4(L) 33.0 - 36.0 G/DL 08/03/2024 6:00 AM [facility] RDW 15.9(H) 11.5 - 14.5 % 08/03/2024 6:00 AM [facility] PLT 114(L) 150 - 350 x10'3/uL 08/03/2024 6:00 AM [facility] MPV 12.8(H) 7.4 - 10.4 FL 08/03/2024 6:00 AM [facility] CBC COMMENT NORMAL REFERENCE RANGE NOT ESTABLISHED FOR THE PROPORTIONAL LEUKOCYTE DIFFERENTIAL. 08/03/2024 6:00 AM [facility] NEUTROPHILS % 62.2 % 08/03/2024 6:00 AM [facility] LYMPHOCYTES % 15.9 % 08/03/2024 6:00 AM [facility] MONOCYTES % 14.9 % 08/03/2024 6:00 AM [facility] EOSINOPHILS % 6.3 % 08/03/2024 6:00 AM CHEMISTRY PHYSICS TEACHER [facility] BASOPHILS % 0.5 % 08/03/2024 6:00 AM [facility] IMMATURE GRANS % 0.2 % 08/03/20 6:00 AM CHEMISTRY PHYSICS TEACHER [facility] NRBC % 0.0 % 08/03/2024 6:00 AM CHEMISTRY PHYSICS TEACHER [facility] ABS. NEUTROPHILS 5.20 1.60 - 8.30 x10'3/uL 08/03/2024 6:00 AM CHEMISTRY PHYSICS TEACHER [facility] ABS. LYMPHOCYTES 1.33 0.80 - 4.70 x10'3/uL 08/03/2024 6:00 AM [facility] ABS. MONOCYTES 1.25 0.00 - 1.50 x10'3/uL 08/03/2024 6:00 AM CHEMISTRY PHYSICS TEACHER [facility] ABS. EOSINOPHILS 0.53(H) 0.00 - 0.40 x10'3/uL 08/03/2024 6:00 AM CHEMISTRY PHYSICS TEACHER [facility] ABS. BASOPHILS 0.04 0.00 - 0.20 x10'3/uL 08/03/2024 6:00 AM [facility] ABS. IMMATURE GRANULOCYTES 0.02 0.00 - 0.03 x10'3/uL 08/03/2024 6:00 AM [facility] ABS. NUCLEATED RBC'S 0.00 0.00 - 0.01 x10'3/uL 08/03/2024 6:00 AM [facility] 08/03/2024 5:46 AM CHEMISTRY PHYSICS TEACHER us Sapphire Peterson NP LABORATORY Final Result [facility] [address] [place] [address], * (ABNORMAL) PROTIME/INR, VENOUS (08/03/2024 5:46 AM CHEMISTRY PHYSICS TEACHER) PROTIME 18.6(H) 9.4 - 12.5 SEC 08/03/2024 6:04 AM CHEMISTRY PHYSICS TEACHER [facility] INR 1.6(H) 0.8 - 1.0 08/03/2024 6:04 AM CHEMISTRY PHYSICS TEACHER [facility] 08/03/2024 5:46 AM CHEMISTRY PHYSICS TEACHER us Megan Infante MD LABORATORY Final Result Performing Organization Address City/[facility]/ZIP Co de Phone Number [facility] [address] [place] [address], [place] [phone] * (ABNORMAL) POCT glucose (08/02/2024 8:14 PM CHEMISTRY PHYSICS TEACHER) GLUCOSE POC 170(H) 70 - 99 MG/DL 08/02/2024 8:16 PM CHEMISTRY PHYSICS TEACHER [facility] 08/02/2024 8:14 PM CHEMISTRY PHYSICS TEACHER us Megan Infante MD POCT ORDERABLES - DEVICE Final R esult Performing Organization Address [facility]/[place] Co de Phone Number [facility] [address] [place] [address], [place] [phone] * (ABNORMAL) POCT glucose (08/02/2024 4:10 PM CHEMISTRY PHYSICS TEACHER) GLUCOSE POC 142(H) 70 - 99 MG/DL 08/02/2024 4:14 PM CHEMISTRY PHYSICS TEACHER [facility] 08/02/2024 4:10 PM CHEMISTRY PHYSICS TEACHER us Megan Infante MD POCT ORDERABLES - DEVICE Final R esult Performing Organization Address [facility]/[place] Co de Phone Number [facility] [address] [place] [address], [place] [phone] * (ABNORMAL) POCT glucose (08/02/2024 10:59 AM CHEMISTRY PHYSICS TEACHER) GLUCOSE POC 150(H) 70 - 99 MG/DL 08/04/2024 1:47 AM CHEMISTRY PHYSICS TEACHER [facility] Comment:Value Noted, No Miri tment Given 08/02/2024 10:5 9 AM CHEMISTRY PHYSICS TEACHER us Megan Infante MD POCT ORDERABLES - DEVICE Final R esult Performing Organization Address [facility]/ZIP Co de Phone Number [facility] [address] [place] [address], * POCT glucose (08/02/2024 6:20 AM CHEMISTRY PHYSICS TEACHER) GLUCOSE POC 95 70 - 99 MG/DL 08/02/2024 6:24 AM CHEMISTRY PHYSICS TEACHER [facility] 08/02/2024 6:20 AM CHEMISTRY PHYSICS TEACHER us Megan Infante MD POCT ORDERABLES - DEVICE Final R esult Performing Organization Address [facility]/[place] Co de Phone Number [facility] [address] [place] [address], [place] [phone] * (ABNORMAL) COMPREHENSIVE METABOLIC PANEL (08/02/2024 5:13 AM CHEMISTRY PHYSICS TEACHER) SODIUM S/P/B 137 136 - 145 MMOL/L 08/02/2024 5:59 AM CHEMISTRY PHYSICS TEACHER [facility] POTASSIUM S/P/B 4.8 3.5 - 5.1 MMOL/L 08/02/2024 5:59 AM CHEMISTRY PHYSICS TEACHER [facility] CHLORIDE S/P/B 102 98 - 107 MMOL/L 08/02/2024 5:59 AM CHEMISTRY PHYSICS TEACHER [facility] CO2 28.6 21.0 - 32.0 MMOL/L 08/02/2024 5:59 AM CHEMISTRY PHYSICS TEACHER [facility] GLUCOSE 103(H) 70 - 99 MG/DL 08/02/2024 5:59 AM CHEMISTRY PHYSICS TEACHER [facility] Comment: FASTING GLUCOSE 100 TO 125 MG/DL IS CONSISTENT WITH IMPAIRED FASTING GLUCOSE. FASTING GLUCOSE >125 MG/DL IS CONSISTENT WITH DIABETES. RANDOM GLUCOSE >200 MG/DL WITH HYPERGLYCEMIC SYMPTOMS IS CONSISTENT WITH DIABETES. PER ADA GUIDELINES BUN 45(H) 6 - 24 MG/DL 08/02/2024 5:59 AM [facility] CREATININE S/P/B 1.75(H) 0.70 - 1.30 MG/DL 08/02/2024 5:59 AM [facility] CALCIUM S/P/B 9.1 8.4 - 10.5 MG/DL 08/02/2024 5:59 AM [facility] BILIRUBIN TOTAL S/P/B 1.4(H) 0.2 - 1.0 MG/DL 08/02/2024 5:59 AM [facility] Comment: THIS ASSAY IS NOT RECOMMENDED FOR PATIENTS UNDERGOING TREATMENT WITH ELTROMBOPAG DUE TO THE POTENTIAL FOR FALSELY ELEVATED RESULTS. ALKALINE PHOSPHATASE S/P/B 118(H) 45 - 115 U/L 08/02/2024 5:59 AM [facility] AST 27 15 - 37 U/L 08/02/2024 5:59 AM [facility] ALT 25 16 - 63 U/L 08/02/2024 5:59 AM [facility] TOTAL PROTEIN S/P/B 7.2 6.4 - 8.2 G/DL 08/02/2024 5:59 AM [facility] ALBUMIN S/P/B 3.1(L) 3.4 - 5.0 G/DL 08/02/2024 5:59 AM [facility] ANION GAP 6.4 5.0 - 15.0 MMOL/L 08/02/2024 5:59 AM [facility] OSMOLALITY (CALC) 296 MOSM/KG 024 5:59 AM [facility] Comment:REFERENCE RANGE NOT ESTABLISHED GFR ESTIMATE 42(L) >89 ML/MIN/1. 73 M2 08/02/2024 5:59 AM [facility] GFR NOTES GFR REFERENCE S: 08/02/2024 5:59 AM [facility] Comment: THE ESTIMATED GFR IS [...] FAILURE: <15 ml/min/1.73 m2 08/02/2024 5:13 AM CHEMISTRY PHYSICS TEACHER us Sapphire Peterson NP LABORATORY Final Result [facility] [address] [place] [address], * (ABNORMAL) CBC W/DIFF AUTOMATED (08/02/2024 5:13 AM CHEMISTRY PHYSICS TEACHER) WBC 8.86 4.00 - 10.80 x10'3/uL 08/02/2024 5:48 AM CHEMISTRY PHYSICS TEACHER [facility] RBC 3.95(L) 4.50 - 6.10 x10'6/uL 08/02/2024 5:48 AM CHEMISTRY PHYSICS TEACHER [facility] HGB 11.5(L) 13.0 - 18.0 G/DL 08/02/2024 5:48 AM CHEMISTRY PHYSICS TEACHER [facility] HCT 35.7(L) 37.0 - 52.0 % 08/02/2024 5:48 AM CHEMISTRY PHYSICS TEACHER [facility] MCV 90.4 78.0 - 100.0 FL 08/02/2024 5:48 AM CHEMISTRY PHYSICS TEACHER [facility] MCH 29.1 27.0 - 31.0 PG 08/02/2024 5:48 AM CHEMISTRY PHYSICS TEACHER [facility] MCHC 32.2(L) 33.0 - 36.0 G/DL 08/02/2024 5:48 AM CHEMISTRY PHYSICS TEACHER [facility] RDW 15.9(H) 11.5 - 14.5 % 08/02/2024 5:48 AM [facility] PLT 98(L) 150 - 350 x10'3/uL 08/02/2024 5:48 AM [facility] MPV 13.0(H) 7.4 - 10.4 FL 08/02/2024 5:48 AM [facility] CBC COMMENT NORMAL REFERENCE RANGE NOT ESTABLISHED FOR THE PROPORTIONAL LEUKOCYTE DIFFERENTIAL. 08/02/2024 5:48 AM [facility] NEUTROPHILS % 65.8 % 08/02/2024 5:54 AM [facility] LYMPHOCYTES % 14.2 % 08/02/2024 5:54 AM [facility] MONOCYTES % 14.2 % 08/02/2024 5:54 AM [facility] EOSINOPHILS % 5.2 % 08/02/2024 5:54 AM [facility] BASOPHILS % 0.3 % 08/02/2024 5:54 AM [facility] IMMATURE GRANS % 0.3 % 08/02/20 5:54 AM [facility] NRBC % 0.0 % 08/02/2024 5:54 AM [facility] ABS. NEUTROPHILS 5.82 1.60 - 8.30 x10'3/uL 08/02/2024 5:54 AM [facility] ABS. LYMPHOCYTES 1.26 0.80 - 4.70 x10'3/uL 08/02/2024 5:54 AM [facility] ABS. MONOCYTES 1.26 0.00 - 1.50 x10'3/uL 08/02/2024 5:54 AM [facility] ABS. EOSINOPHILS 0.46(H) 0.00 - 0.40 x10'3/uL 08/02/2024 5:54 AM [facility] ABS. BASOPHILS 0.03 0.00 - 0.20 x10'3/uL 08/02/2024 5:54 AM [facility] ABS. IMMATURE GRANULOCYTES 0.03 0.00 - 0.03 x10'3/uL 08/02/2024 5:54 AM [facility] ABS. NUCLEATED RBC'S 0.00 0.00 - 0.01 x10'3/uL 08/02/2024 5:54 AM CHEMISTRY PHYSICS TEACHER [facility] PLT MORPH. DECREASED 08/02/2024 5:54 AM CHEMISTRY PHYSICS TEACHER [facility] RBC MORPHOLOGY 1+ 08/02/2024 5:54 AM CHEMISTRY PHYSICS TEACHER [facility] Comment:ANISOCYTOSIS 08/02/2024 5:13 AM CHEMISTRY PHYSICS TEACHER Sapphire Peterson NP LABORATORY Final Result Performing Organization Address [facility]/[place] [address], * (ABNORMAL) PROTIME/INR, VENOUS (08/02/2024 5:13 AM CHEMISTRY PHYSICS TEACHER) PROTIME 37.1(H) 9.4 - 12.5 SEC 08/02/2024 5:56 AM CHEMISTRY PHYSICS TEACHER [facility] INR 3.3(H) 0.8 - 1.0 08/02/2024 5:56 AM CHEMISTRY PHYSICS TEACHER [facility] 08/02/2024 5:13 AM CHEMISTRY PHYSICS TEACHER us Megan Infante MD LABORATORY Final Result Performing Organization Address [facility]/[place] [address], * (ABNORMAL) POCT glucose (08/01/2024 8:50 PM CHEMISTRY PHYSICS TEACHER) GLUCOSE POC 145(H) 70 - 99 MG/DL 08/01/2024 8:54 PM CHEMISTRY PHYSICS TEACHER [facility] 08/01/2024 8:50 PM CHEMISTRY PHYSICS TEACHER us Megan Infante MD POCT ORDERABLES - DEVICE Final R esult Performing Organization Address City/[facility]/ZIP Co de Phone Number [facility] [address] [place] [address], * (ABNORMAL) POCT glucose (08/01/2024 6:28 PM CHEMISTRY PHYSICS TEACHER) GLUCOSE POC 184(H) 70 - 99 MG/DL 08/01/2024 6:30 PM CHEMISTRY PHYSICS TEACHER [facility] 08/01/2024 6:28 PM CHEMISTRY PHYSICS TEACHER us Megan Infante MD POCT ORDERABLES - DEVICE Final R esult [facility] [address] [place] [id number], * (ABNORMAL) POCT glucose (08/01/2024 5:09 PM CHEMISTRY PHYSICS TEACHER) GLUCOSE POC 52(L) 70 - 99 MG/DL 08/01/2024 5:11 PM CHEMISTRY PHYSICS TEACHER [facility] 08/01/2024 5:09 PM CHEMISTRY PHYSICS TEACHER us Megan Infante MD POCT ORDERABLES - DEVICE Final R esult Performing Organization Address City/[facility]/ZIP Co de Phone Number [facility] [address] [place] [id number], * (ABNORMAL) POCT glucose (08/01/2024 11:53 AM CHEMISTRY PHYSICS TEACHER) GLUCOSE POC 60(L) 70 - 99 MG/DL 08/01/2024 12:03 PM CHEMISTRY PHYSICS TEACHER [facility] 08/01/2024 11:5 3 AM CHEMISTRY PHYSICS TEACHER us Megan Infante MD POCT ORDERABLES - DEVICE Final R esult Performing Organization Address City/[facility]/ZIP Co de Phone Number [facility] [address] [place] [id number], * (ABNORMAL) POCT glucose (08/01/2024 7:39 AM CHEMISTRY PHYSICS TEACHER) GLUCOSE POC 133(H) 70 - 99 MG/DL 08/01/2024 7:40 AM CHEMISTRY PHYSICS TEACHER [facility] 08/01/2024 7:39 AM CHEMISTRY PHYSICS TEACHER us Megan Infante MD POCT ORDERABLES - DEVICE Final R esult Performing Organization Address [facility]/ZIP Co de Phone Number [facility] [address] [place] [address], [place] [phone] * (ABNORMAL) POCT glucose (08/01/2024 6:56 AM CHEMISTRY PHYSICS TEACHER) GLUCOSE POC 68(L) 70 - 99 MG/DL 08/01/2024 6:57 AM CHEMISTRY PHYSICS TEACHER [facility] 08/01/2024 6:56 AM CHEMISTRY PHYSICS TEACHER us Megan Infante MD POCT ORDERABLES - DEVICE Final R esult Performing Organization Address [facility] Co de Phone Number [facility] [address] [place] [address], [place] [phone] * (ABNORMAL) POCT glucose (08/01/2024 6:35 AM CHEMISTRY PHYSICS TEACHER) GLUCOSE POC 44(L) 70 - 99 MG/DL 08/01/2024 6:37 AM CHEMISTRY PHYSICS TEACHER [facility] Comment:Value Noted, No Miri tment Given 08/01/2024 6:35 AM CHEMISTRY PHYSICS TEACHER us Megan Infante MD POCT ORDERABLES - DEVICE Final R esult Performing Organization Address [facility] Co de Phone Number [facility] [address] [place] [address], [place] [phone] * (ABNORMAL) PROTIME/INR, VENOUS (08/01/2024 5:24 AM CHEMISTRY PHYSICS TEACHER) PROTIME 73.5(H) 9.4 - 12.5 SEC 08/01/2024 6:03 AM [facility] INR 6.5(HH) 0.8 - 1.0 08/01/2024 6:03 AM [facility] Comment: CRITICAL VALUE CRITICAL VALUE VERIFIED, CALLED TO, AND READ BACK BY: HUMA INFANTE [id number] 08/01/2024 5:24 AM CHEMISTRY PHYSICS TEACHER us Jena Kong MD LABORATORY Final Resul t [facility] [address] [place] [address], * (ABNORMAL) BASIC METABOLIC PANEL (08/01/2024 5:24 AM CHEMISTRY PHYSICS TEACHER) SODIUM S/P/B 137 136 - 145 MMOL/L 08/01/2024 6:32 AM [facility] POTASSIUM S/P/B 4.6 3.5 - 5.1 MMOL/L 08/01/2024 6:32 AM [facility] CHLORIDE S/P/B 103 98 - 107 MMOL/L 08/01/2024 6:32 AM [facility] CO2 27.2 21.0 - 32.0 MMOL/L 08/01/2024 6:32 AM [facility] GLUCOSE 48(LL) 70 - 99 MG/DL 08/01/2024 6:32 AM [facility] Comment: Critical Result(s) Called to and read back by: STEPHEN TRUJILLO ?? at: 06:31:27 ?? 08/01/2024 by ETCR. FASTING GLUCOSE 100 TO 125 MG/DL IS CONSISTENT WITH IMPAIRED FASTING GLUCOSE. FASTING GLUCOSE >125 MG/DL IS CONSISTENT WITH DIABETES. RANDOM GLUCOSE >200 MG/DL WITH HYPERGLYCEMIC SYMPTOMS IS CONSISTENT WITH DIABETES. PER ADA GUIDELINES BUN 51(H) 6 - 24 MG/DL 08/01/2024 6:32 AM [facility] CREATININE S/P/B 1.72(H) 0.70 - 1.30 MG/DL 08/01/2024 6:32 AM [facility] CALCIUM S/P/B 8.7 8.4 - 10.5 MG/DL 08/01/2024 6:32 AM CHEMISTRY PHYSICS TEACHER [facility] ANION GAP 6.8 5.0 - 15.0 MMOL/L 08/01/2024 6:32 AM [facility] OSMOLALITY (CALC) 295 MOSM/KG 024 6:32 AM [facility] Comment:REFERENCE RANGE NOT ESTABLISHED GFR ESTIMATE 42(L) >89 ML/MIN/1. 73 M2 08/01/2024 6:32 AM [facility] GFR NOTES GFR REFERENCE S: 08/01/2024 6:32 AM [facility] Comment: THE ESTIMATED GFR IS [...] FAILURE: <15 ml/min/1.73 m2 08/01/2024 5:24 AM CHEMISTRY PHYSICS TEACHER us Jena Kong MD LABORATORY Final Resul t [facility] [address] [place] [address], * (ABNORMAL) CBC W/DIFF AUTOMATED (08/01/2024 5:24 AM CHEMISTRY PHYSICS TEACHER) WBC 8.21 4.00 - 10.80 x10'3/uL 08/01/2024 5:51 AM CHEMISTRY PHYSICS TEACHER [facility] RBC 3.81(L) 4.50 - 6.10 x10'6/uL 08/01/2024 5:51 AM CHEMISTRY PHYSICS TEACHER [facility] HGB 11.1(L) 13.0 - 18.0 G/DL 08/01/2024 5:51 AM [facility] HCT 34.5(L) 37.0 - 52.0 % 08/01/2024 5:51 AM [facility] MCV 90.6 78.0 - 100.0 FL 08/01/2024 5:51 AM [facility] MCH 29.1 27.0 - 31.0 PG 08/01/2024 5:51 AM [facility] MCHC 32.2(L) 33.0 - 36.0 G/DL 08/01/2024 5:51 AM [facility] RDW 16.0(H) 11.5 - 14.5 % 08/01/2024 5:51 AM [facility] PLT 87(L) 150 - 350 x10'3/uL 08/01/2024 5:51 AM [facility] MPV 13.5(H) 7.4 - 10.4 FL 08/01/2024 5:51 AM [facility] CBC COMMENT NORMAL REFERENCE RANGE NOT ESTABLISHED FOR THE PROPORTIONAL LEUKOCYTE DIFFERENTIAL. 08/01/2024 5:51 AM [facility] NEUTROPHILS % 66.7 % 08/01/2024 6:00 AM [facility] LYMPHOCYTES % 12.5 % 08/01/2024 6:00 AM [facility] MONOCYTES % 14.4 % 08/01/2024 6:00 AM [facility] EOSINOPHILS % 5.8 % 08/01/2024 6:00 AM [facility] BASOPHILS % 0.4 % 08/01/2024 6:00 AM [facility] IMMATURE GRANS % 0.2 % 08/01/20 6:00 AM [facility] NRBC % 0.0 % 08/01/2024 6:00 AM [facility] ABS. NEUTROPHILS 5.47 1.60 - 8.30 x10'3/uL 08/01/2024 6:00 AM [facility] ABS. LYMPHOCYTES 1.03 0.80 - 4.70 x10'3/uL 08/01/2024 6:00 AM CHEMISTRY PHYSICS TEACHER [facility] ABS. MONOCYTES 1.18 0.00 - 1.50 x10'3/uL 08/01/2024 6:00 AM CHEMISTRY PHYSICS TEACHER [facility] ABS. EOSINOPHILS 0.48(H) 0.00 - 0.40 x10'3/uL 08/01/2024 6:00 AM CHEMISTRY PHYSICS TEACHER [facility] ABS. BASOPHILS 0.03 0.00 - 0.20 x10'3/uL 08/01/2024 6:00 AM CHEMISTRY PHYSICS TEACHER [facility] ABS. IMMATURE GRANULOCYTES 0.02 0.00 - 0.03 x10'3/uL 08/01/2024 6:00 AM CHEMISTRY PHYSICS TEACHER [facility] ABS. NUCLEATED RBC'S 0.00 0.00 - 0.01 x10'3/uL 08/01/2024 6:00 AM CHEMISTRY PHYSICS TEACHER [facility] PLT MORPH. DECREASED 08/01/2024 6:00 AM CHEMISTRY PHYSICS TEACHER [facility] RBC MORPHOLOGY 1+ 08/01/2024 6:00 AM CHEMISTRY PHYSICS TEACHER [facility] Comment:ANISOCYTOSIS 08/01/2024 5:24 AM CHEMISTRY PHYSICS TEACHER Jena Kong MD LABORATORY Final Resul t Performing Organization Address City/[facility]/[place] [address], * (ABNORMAL) POCT glucose (07/31/2024 8:41 PM CHEMISTRY PHYSICS TEACHER) GLUCOSE POC 107(H) 70 - 99 MG/DL 07/31/2024 8:51 PM CHEMISTRY PHYSICS TEACHER [facility] 07/31/2024 8:41 PM CHEMISTRY PHYSICS TEACHER us Megan Infante MD POCT ORDERABLES - DEVICE Final R esult Performing Organization Address City/[facility]/ZIP Co de Phone Number [facility] [address] [place], [place] [address] [address], * POCT glucose (07/31/2024 6:13 PM CHEMISTRY PHYSICS TEACHER) GLUCOSE POC 70 70 - 99 MG/DL 07/31/2024 6:19 PM CHEMISTRY PHYSICS TEACHER [facility] 07/31/2024 6:13 PM CHEMISTRY PHYSICS TEACHER Megan Infante MD POCT ORDERABLES - DEVICE Final R esult Performing Organization Address [facility]/[place]UST Co de Phone Number [address] [address], * CULTURE URINE (07/31/2024 4:57 PM CHEMISTRY PHYSICS TEACHER) SPEC DESCRIPTION URINE CLEAN CATCH 07/31/2024 4:57 PM CHEMISTRY PHYSICS TEACHER [facility] SPECIAL REQUESTS NO SPECIAL REQUEST 07/31/2024 4:57 PM CHEMISTRY PHYSICS TEACHER [facility] CULTURE RESULT NO GROWTH (< OR = 1,000 CFU/ML) 08/02/2024 8:07 AM CHEMISTRY PHYSICS TEACHER [facility] URINE SPECIMEN OBTAINED BY CLEAN CATCH PROCEDURE / Unknown 07/31/2024 4:57 PM CHEMISTRY PHYSICS TEACHER 07/31/2024 5:23 PM CHEMISTRY PHYSICS TEACHER Jena Kong MD MICROBIOLOGY - GENERAL ORDE LYUBOV Final Result Performing Organization Address [facility]/[place] Co de Phone Number [facility] [address] [place] [address], [id number] [facility] [address] [place] [phone], * (ABNORMAL) URINALYSIS (07/31/2024 4:57 PM CHEMISTRY PHYSICS TEACHER) COLOR (U) YELLOW 07/31/2024 6:04 PM CHEMISTRY PHYSICS TEACHER [facility] TRANSPARENCY CLEAR 07/31/2024 6:04 PM CHEMISTRY PHYSICS TEACHER [facility] SPECIFIC GRAVITY (U) 1.005 1.000 - 1.025 07/31/2024 6:04 PM CHEMISTRY PHYSICS TEACHER [facility] Comment:LESS THAN OR EQUAL T O U PH 5.5 5.0 - 8.0 07/31/2024 6:04 PM CHEMISTRY PHYSICS TEACHER [facility] LEUKOCYTES (U) NEGATIVE NEGATIVE 07/31/2024 6:04 PM CHEMISTRY PHYSICS TEACHER [facility] NITRITES NEGATIVE NEGATIVE 07/31/2024 6:04 PM CHEMISTRY PHYSICS TEACHER [facility] PROTEIN RANDOM (U) NEGATIVE NEGATIVE 07/31/2024 6:04 PM CHEMISTRY PHYSICS TEACHER [facility] GLUCOSE (U) TRACE(A) NEGATIVE 07/31/2024 6:04 PM CHEMISTRY PHYSICS TEACHER [facility] KETONES MG/DL (U) NEGATIVE NEGATIVE 07/31/2024 6:04 PM CHEMISTRY PHYSICS TEACHER [facility] UROBILINOGEN 0.2 <1.0 EU/DL 07/31/2024 6:04 PM CHEMISTRY PHYSICS TEACHER [facility] BILIRUBIN (U) NEGATIVE NEGATIVE 07/31/2024 6:04 PM CHEMISTRY PHYSICS TEACHER [facility] BLOOD (U) TRACE(A) NEGATIVE 07/31/2024 6:04 PM CHEMISTRY PHYSICS TEACHER [facility] WBC/HPF 0-5 0 - 5 /HPF 07/31/2024 6:04 PM CHEMISTRY PHYSICS TEACHER [facility] RBC/HPF 0-5 0 - 5 /HPF 07/31/2024 6:04 PM CHEMISTRY PHYSICS TEACHER [facility] EPI/LPF RARE /LPF 07/31/2024 6:04 PM CHEMISTRY PHYSICS TEACHER [facility] BACTERIA (U) 1+ /HPF 07/31/2024 6:04 PM CHEMISTRY PHYSICS TEACHER [facility] MUCUS PRESENT 07/31/2024 6:04 PM CHEMISTRY PHYSICS TEACHER [facility] URINE SPECIMEN OBTAINED BY CLEAN CATCH PROCEDURE / Unknown 07/31/2024 4:57 PM CHEMISTRY PHYSICS TEACHER us Jena Kong MD URINE ORDERABLES Final Resu lt [facility] [address] [place] [address], * XR CHEST PORTABLE (07/31/2024 3:55 PM CHEMISTRY PHYSICS TEACHER) Anatomical Region Laterality Modality Chest Radiographic Stephie ging 07/31/2024 4:12 PM CHEMISTRY PHYSICS TEACHER Impressions 07/31/2024 4:21 PM CHEMISTRY PHYSICS TEACHER IMPRESSION: Cardiomegaly with new congestive changes as described. No focal infiltrates. Ordered By: JENA KONG Interpreted By: Nicko Portillo MD, 07/31/2024 4:12 PM Narrative 07/31/2024 4:21 PM CHEMISTRY PHYSICS TEACHER [address] [place] [address] Examination: Portable chest. Exam time: 1523 hours. [...] Procedure Note Nicko Portillo MD - 07/31/[address] [place] [address] Examination: Portable chest. Exam time: 1523 hours. [...] * BLOOD CULTURE #1 (07/31/2024 3:43 PM CHEMISTRY PHYSICS TEACHER) SPEC DESCRIPTION BLOOD 07/31/2024 3:30 PM CHEMISTRY PHYSICS TEACHER [facility] SPECIAL REQUESTS NO SPECIAL REQUEST 07/31/2024 3:30 PM CHEMISTRY PHYSICS TEACHER [facility] CULTURE RESULT NO GROWTH 5 DAYS 2024 10:57 AM CHEMISTRY PHYSICS TEACHER [facility] BLOOD SPECIMEN OBTAINED FOR BLOOD CULTURE / Unknown 07/31/2024 3:43 PM CHEMISTRY PHYSICS TEACHER 07/31/2024 3:47 PM CHEMISTRY PHYSICS TEACHER us Jena Kong MD MICROBIOLOGY - GENERAL ORDE RABLES Final Result Performing Organization Address [facility]/ZIP Co de Phone Number [facility] [address] [place] [address], * (ABNORMAL) PRO-BRAIN NATRIURETIC PEPTIDE (07/31/2024 3:36 PM CHEMISTRY PHYSICS TEACHER) PRO-B TYPE NATRIURETIC PEPTIDE 2,996(H) <125 PG/ML 07/31/2024 4:08 PM CHEMISTRY PHYSICS TEACHER [facility] Comment: CUT POINTS ESTABLISHED BY [...] 72% FOR ACUTE CHF. 07/31/2024 3:36 PM CHEMISTRY PHYSICS TEACHER us Jena Kong MD LABORATORY Final Resul t [facility] [address] [place] [address], * MAGNESIUM (07/31/2024 3:36 PM CHEMISTRY PHYSICS TEACHER) MAGNESIUM 2.0 1.8 - 2.4 MG/DL 07/31/2024 4:08 PM CHEMISTRY PHYSICS TEACHER [facility] 07/31/2024 3:36 PM CHEMISTRY PHYSICS TEACHER us Jena Kong MD LABORATORY Final Resul t Performing Organization Address City/[facility]/ZIP Co de Phone Number [facility] [address] [place] [address], * LACTIC ACID W REFLEX (SEPSIS) (07/31/2024 3:36 PM CHEMISTRY PHYSICS TEACHER) [facility] LACTIC ACID VENOUS 0.4 0.4 - 2.0 MMOL/L 07/31/2024 4:08 PM CHEMISTRY PHYSICS TEACHER [facility] 07/31/2024 3:36 PM CHEMISTRY PHYSICS TEACHER us Jena Kong MD LABORATORY Final Resul t Performing Organization Address [facility]/ZIP Co de Phone Number [facility] [address] [place] [address], * TROPONIN, QUANT (07/31/2024 3:36 PM CHEMISTRY PHYSICS TEACHER) [facility] TROPONIN I HIGH SENSITIVITY 48 0 - 76 ng/L 07/31/2024 4:08 PM CHEMISTRY PHYSICS TEACHER [facility] 07/31/2024 3:36 PM CHEMISTRY PHYSICS TEACHER us Jena Kong MD LABORATORY Final Resul t Performing Organization Address [facility]/ZIP Co de Phone Number [facility] [address] [place] [phone], * (ABNORMAL) COMPREHENSIVE METABOLIC PANEL (07/31/2024 3:36 PM CHEMISTRY PHYSICS TEACHER) SODIUM S/P/B 133(L) 136 - 145 MMOL/L 07/31/2024 4:08 PM [facility] POTASSIUM S/P/B 5.2(H) 3.5 - 5.1 MMOL/L 07/31/2024 4:08 PM [facility] CHLORIDE S/P/B 100 98 - 107 MMOL/L 07/31/2024 4:08 PM [facility] CO2 24.6 21.0 - 32.0 MMOL/L 07/31/2024 4:08 PM [facility] GLUCOSE 73 70 - 99 MG/DL 07/31/2024 4:08 PM [facility] Comment: FASTING GLUCOSE 100 TO 125 MG/DL IS CONSISTENT WITH IMPAIRED FASTING GLUCOSE. FASTING GLUCOSE >125 MG/DL IS CONSISTENT WITH DIABETES. RANDOM GLUCOSE >200 MG/DL WITH HYPERGLYCEMIC SYMPTOMS IS CONSISTENT WITH DIABETES. PER ADA GUIDELINES BUN 52(H) 6 - 24 MG/DL 07/31/2024 4:08 PM [facility] CREATININE S/P/B 1.84(H) 0.70 - 1.30 MG/DL 07/31/2024 4:08 PM [facility] CALCIUM S/P/B 8.7 8.4 - 10.5 MG/DL 07/31/2024 4:08 PM [facility] BILIRUBIN TOTAL S/P/B 1.0 0.2 - 1.0 MG/DL 07/31/2024 4:08 PM [facility] Comment: THIS ASSAY IS NOT RECOMMENDED FOR PATIENTS UNDERGOING TREATMENT WITH ELTROMBOPAG DUE TO THE POTENTIAL FOR FALSELY ELEVATED RESULTS. ALKALINE PHOSPHATASE S/P/B 121(H) 45 - 115 U/L 07/31/2024 4:08 PM [facility] AST 32 15 - 37 U/L 07/31/2024 4:08 PM [facility] ALT 31 16 - 63 U/L 07/31/2024 4:08 PM [facility] TOTAL PROTEIN S/P/B 7.5 6.4 - 8.2 G/DL 07/31/2024 4:08 PM [facility] ALBUMIN S/P/B 3.3(L) 3.4 - 5.0 G/DL 07/31/2024 4:08 PM [facility] ANION GAP 8.4 5.0 - 15.0 MMOL/L 07/31/2024 4:08 PM [facility] OSMOLALITY (CALC) 289 MOSM/KG 024 4:08 PM [facility] Comment:REFERENCE RANGE NOT ESTABLISHED GFR ESTIMATE 39(L) >89 ML/MIN/1. 73 M2 07/31/2024 4:08 PM [facility] GFR NOTES GFR REFERENCE S: 07/31/2024 4:08 PM [facility] Comment: THE ESTIMATED GFR IS [...] FAILURE: <15 ml/min/1.73 m2 07/31/2024 3:36 PM CHEMISTRY PHYSICS TEACHER Jena Kong MD LABORATORY Final Resul t [facility] [address] [place] [address], * (ABNORMAL) PROTIME/INR, VENOUS (07/31/2024 3:36 PM CHEMISTRY PHYSICS TEACHER) PROTIME 72.6(H) 9.4 - 12.5 SEC 07/31/2024 4:07 PM CHEMISTRY PHYSICS TEACHER [facility] INR 6.4(HH) 0.8 - 1.0 07/31/2024 4:07 PM CHEMISTRY PHYSICS TEACHER [facility] Comment: CRITICAL VALUE CALLED TO JENNIFER MENDIETA ER 07/31/24 1604 READ BACK AND VERIFIED 07/31/2024 3:36 PM CHEMISTRY PHYSICS TEACHER us Jena Kong MD LABORATORY Final Resul t [facility] [address] [place] [address], * (ABNORMAL) CBC W/DIFF AUTOMATED (07/31/2024 3:36 PM CHEMISTRY PHYSICS TEACHER) WBC 8.34 4.00 - 10.80 x10'3/uL 07/31/2024 4:08 PM CHEMISTRY PHYSICS TEACHER [facility] RBC 3.88(L) 4.50 - 6.10 x10'6/uL 07/31/2024 4:08 PM [facility] HGB 11.2(L) 13.0 - 18.0 G/DL 07/31/2024 4:08 PM CHEMISTRY PHYSICS TEACHER [facility] HCT 35.0(L) 37.0 - 52.0 % 07/31/2024 4:08 PM [facility] MCV 90.2 78.0 - 100.0 FL 07/31/2024 4:08 PM [facility] MCH 28.9 27.0 - 31.0 PG 07/31/2024 4:08 PM [facility] MCHC 32.0(L) 33.0 - 36.0 G/DL 07/31/2024 4:08 PM CHEMISTRY PHYSICS TEACHER [facility] RDW 16.0(H) 11.5 - 14.5 % 07/31/2024 4:08 PM CHEMISTRY PHYSICS TEACHER [facility] PLT 82(L) 150 - 350 x10'3/uL 07/31/2024 4:08 PM [facility] MPV 12.4(H) 7.4 - 10.4 FL 07/31/2024 4:08 PM [facility] CBC COMMENT NORMAL REFERENCE RANGE NOT ESTABLISHED FOR THE PROPORTIONAL LEUKOCYTE DIFFERENTIAL. 07/31/2024 4:08 PM CHEMISTRY PHYSICS TEACHER [facility] NEUTROPHILS % 70.4 % 07/31/2024 4:08 PM CHEMISTRY PHYSICS TEACHER [facility] LYMPHOCYTES % 12.0 % 07/31/2024 4:08 PM CHEMISTRY PHYSICS TEACHER [facility] MONOCYTES % 13.5 % 07/31/2024 4:08 PM CHEMISTRY PHYSICS TEACHER [facility] EOSINOPHILS % 3.5 % 07/31/2024 4:08 PM CHEMISTRY PHYSICS TEACHER [facility] BASOPHILS % 0.4 % 07/31/2024 4:08 PM CHEMISTRY PHYSICS TEACHER [facility] IMMATURE GRANS % 0.2 % 07/31/20 4:08 PM CHEMISTRY PHYSICS TEACHER [facility] NRBC % 0.0 % 07/31/2024 4:08 PM CHEMISTRY PHYSICS TEACHER [facility] ABS. NEUTROPHILS 5.87 1.60 - 8.30 x10'3/uL 07/31/2024 4:08 PM CHEMISTRY PHYSICS TEACHER [facility] ABS. LYMPHOCYTES 1.00 0.80 - 4.70 x10'3/uL 07/31/2024 4:08 PM CHEMISTRY PHYSICS TEACHER [facility] ABS. MONOCYTES 1.13 0.00 - 1.50 x10'3/uL 07/31/2024 4:08 PM CHEMISTRY PHYSICS TEACHER [facility] ABS. EOSINOPHILS 0.29 0.00 - 0.40 x10'3/uL 07/31/2024 4:08 PM CHEMISTRY PHYSICS TEACHER [facility] ABS. BASOPHILS 0.03 0.00 - 0.20 x10'3/uL 07/31/2024 4:08 PM CHEMISTRY PHYSICS TEACHER [facility] ABS. IMMATURE GRANULOCYTES 0.02 0.00 - 0.03 x10'3/uL 07/31/2024 4:08 PM CHEMISTRY PHYSICS TEACHER [facility] ABS. NUCLEATED RBC'S 0.00 0.00 - 0.01 x10'3/uL 07/31/2024 4:08 PM CHEMISTRY PHYSICS TEACHER [facility] 07/31/2024 3:36 PM CHEMISTRY PHYSICS TEACHER us Jena Kong MD LABORATORY Final Resul t [facility] [address] [place] [address], * ECG 12 lead (07/31/2024 3:32 PM CHEMISTRY PHYSICS TEACHER) 07/31/2024 3:32 PM CHEMISTRY PHYSICS TEACHER Narrative [facility] - 07/31/2024 7:59 PM CHEMISTRY PHYSICS TEACHER ? [facility] ?[address] [place] ??[id number] ? Test Date: ?2024-07-31 Pat Name: ? OBIE SIMS ?Department: ?? 3 ? Room: ? 326 Gender: ? Male ? Eyeglass Cutter: ?? : ?1955 ? Requested By: JENA Burnham Number: [id number] ? Reading MD: ?? Brit Gonzáles ? Measurements Intervals ?[place] ? Rate: ? 67 ? P: ? TX: ? 0 ?QRS: ?-24 QRSD: ? 140 ?T: ?122 QT: ? 402 ? QTc: ?426 ? Interpretive Statements ATRIAL FIBRILLATION LEFT BUNDLE BRANCH BLOCK ISTRY PHYSICS TEACHER Procedure Note Brit Gonzáles MD - 07/31/[address] [place] [address] Test Date: 2024-07-31 Pat Name: OBIE SIMS Department: 3 Room: 326 Gender: Male Eyeglass Cutter: : 1955 Requested By: JENA KONG Order Number: [id number] Sage MD: Brit Gonzáles Measurements Intervals [place] Rate: 67 P: TX: 0 QRS: -24 QRSD: 140 T: 122 QT: 402 QTc: 426 Interpretive Statements ATRIAL FIBRILLATION LEFT BUNDLE BRANCH BLOCK ISTRY PHYSICS TEACHER us Jena Kong MD ECG ORDERABLES Final Resul t [facility] documented in this encounter Visit Diagnoses Diagnosis CHF exacerbation ([facility]/HCC)- Primary Congestive heart failure, unspecified Shortness of breath CHF exacerbation (CMS/HCC HHS/HCC) Congestive heart failure, unspecified CKD (chronic kidney disease) Chronic kidney disease, unspecified Chronic pain Other chronic pain Hyperkalemia Hyperpotassemia Chronic venous insufficiency Unspecified venous (peripheral) insufficiency Non-pressure chronic ulcer of left calf limited to breakdown of skin ([facility]) 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 breakdown of skin ([facility]) Chronic combined systolic and diastolic congestive heart failure ([facility]) Chronic combined systolic and diastolic heart failure documented in this encounter Admitting Diagnoses Diagnosis CHF exacerbation ([facility]) Congestive heart failure, unspecified documented in this [...] 08/03/24 at 1513 Given 07/31/2024 9:34 PM CHEMISTRY PHYSICS TEACHER 2 puffs allopurinol (ZYLOPRIM) tablet 300 mg 300 mg, Oral, Daily, First dose on Wed07/31/24 at 1815, Until Discontinued Given 08/03/2024 8:49 AM CHEMISTRY PHYSICS TEACHER 300 mg Given 08/02/2024 9:38 AM CHEMISTRY PHYSICS TEACHER 300 mg Given 08/01/2024 8:34 AM CHEMISTRY PHYSICS TEACHER 300 mg atorvastatin (LIPITOR) tablet 80 mg 80 mg, Oral, Nightly at bedtime, First dose on Wed07/31/24 at 2100, Until Discontinued Given 08/02/2024 9:15 PM CHEMISTRY PHYSICS TEACHER 80 m g Given 08/01/2024 9:09 PM CHEMISTRY PHYSICS TEACHER 80 mg Given 07/31/2024 8:53 PM CHEMISTRY PHYSICS TEACHER 80 mg carvedilol (COREG) tablet 3.125 mg 3.125 mg, Oral, 2 times daily, First dose on Wed07/31/24 at 2100, Until Discontinued, Take with meal or snack Given 08/03/2024 8:49 AM CHEMISTRY PHYSICS TEACHER 3.125 mg Given 08/02/2024 9:19 PM CHEMISTRY PHYSICS TEACHER 3.125 mg Given 08/02/2024 9:37 AM CHEMISTRY PHYSICS TEACHER 3.125 mg empagliflozin (JARDIANCE) tablet 25 mg 25 mg, Oral, Daily, First dose on Wed07/31/24 at 1815, Until Discontinued, Contact provider if the patient has a UTI, is NPO, or has an upcoming procedure within 3 days Given 08/02/2024 9:38 AM CHEMISTRY PHYSICS TEACHER 25 mg Given 08/01/2024 8:34 AM CHEMISTRY PHYSICS TEACHER 25 mg folic acid (FOLVITE) tablet 1 mg 1 mg, Oral, Daily, First dose on Wed07/31/24 at 1815, Until Discontinued Given 08/03/2024 8:49 AM CHEMISTRY PHYSICS TEACHER 1 mg Given 08/02/2024 9:38 AM CHEMISTRY PHYSICS TEACHER 1 mg Given 08/01/2024 8:34 AM CHEMISTRY PHYSICS TEACHER 1 mg furosemide (LASIX) injection 80 mg 80 mg, Intravenous, Once, 1 dose, On Wed07/31/24 at 1545, Administer IV push 20-40mg/min. Given 07/31/2024 3:47 PM CHEMISTRY PHYSICS TEACHER 80 mg furosemide (LASIX) injection 80 mg 80 mg, Intravenous, Once, 1 dose, On Wed08/01/24 at 0600, Administer IV push 20-40mg/min. Given 08/01/2024 6:51 AM CHEMISTRY PHYSICS TEACHER 80 mg furosemide (LASIX) injection 80 mg 80 mg, Intravenous, Once, 1 dose, On Wed08/02/24 at 0945, Administer IV push 20-40mg/min. Given 08/02/2024 9:36 AM CHEMISTRY PHYSICS TEACHER 80 mg furosemide (LASIX) tablet 80 mg 80 mg, Oral, Daily, First dose on Wed08/03/24 at 0900, Until Discontinued Given 08/03/2024 8:48 AM CHEMISTRY PHYSICS TEACHER 80 mg glipiZIDE XL (GLUCOTROL XL) 24 hr tablet 5 mg 5 mg, Oral, Daily with breakfast, First dose on Wed08/01/24 at 0800, Until Discontinued, Do not break, chew, or crush. Given 08/02/2024 9:37 AM CHEMISTRY PHYSICS TEACHER 5 mg Given 08/01/2024 8:34 AM CHEMISTRY PHYSICS TEACHER 5 mg HYDROcodone-acetaminophen (NORCO) 10-325 MG tablet 1 tablet 1 tablet, Oral, Once, 1 dose, On Wed07/31/24 at 1545, Maximum dose of acetaminophen is 4000 mg from all sources in 24 hours. Given 07/31/2024 3:46 PM CHEMISTRY PHYSICS TEACHER 1 tablet HYDROcodone-acetaminophen (NORCO) 10-325 MG tablet 1 tablet 1 tablet, Oral, Every 6 hours PRN, Moderate pain (Scale 4 - 7), Starting on Wed07/31/24 at 1748, Until Wed08/03/24 at 1513, Maximum dose of acetaminophen is 4000 mg from all sources in 24 hours.Indications:Acute Pain < 7 Day Supply Given 08/03/2024 6:17 AM CHEMISTRY PHYSICS TEACHER 1 tablet Given 08/02/2024 9:16 PM CHEMISTRY PHYSICS TEACHER 1 tablet Given 08/02/2024 3:17 PM CHEMISTRY PHYSICS TEACHER 1 tablet hydrOXYzine (ATARAX) tablet 25 mg 25 mg, Oral, 3 times daily PRN, Itching, Starting on Wed08/01/24 at 0851, Until Wed08/03/24 at 1513 Given 08/02/2024 12:30 AM CHEMISTRY PHYSICS TEACHER 25 mg Given 08/01/2024 11:51 AM CHEMISTRY PHYSICS TEACHER 25 mg insulin glargine (LANTUS) injection 15 Units 15 Units, Subcutaneous, Nightly at bedtime, First dose on Wed07/31/24 at 2100, Until Discontinued Given 07/31/2024 8:53 PM CHEMISTRY PHYSICS TEACHER 15 Units Right Arm insulin glargine (LANTUS) injection 5 Units 5 Units, Subcutaneous, Nightly at bedtime, First dose (after last modification) on Wed08/01/24 at 2100, Until Discontinued Given 08/02/2024 9:19 PM CHEMISTRY PHYSICS TEACHER 5 Units Left Arm mometasone-formoterol (DULERA) 100-5 MCG/ACT inhaler 2 puff 2 puff, Inhalation, 2 times daily, First dose on Wed07/31/24 at 1900, Until Discontinued, Following administration, rinse mouth with water after use (do not swallow) to reduce risk of oral candidiasis. Given 08/03/2024 7:34 AM CHEMISTRY PHYSICS TEACHER 2 puffs Given 08/02/2024 6:14 PM CHEMISTRY PHYSICS TEACHER 2 puffs Given 08/02/2024 7:42 AM CHEMISTRY PHYSICS TEACHER 2 puffs nystatin (MYCOSTATIN) powder Topical, 2 times daily, First dose on Wed08/01/24 at 1445, Until Discontinued Given 08/03/2024 8:48 AM CHEMISTRY PHYSICS TEACHER Given 08/02/2024 9:20 PM CHEMISTRY PHYSICS TEACHER Given 08/02/2024 9:38 AM CHEMISTRY PHYSICS TEACHER pantoprazole EC (PROTONIX) tablet 40 mg 40 mg, Oral, Daily, First dose on Wed07/31/24 at 1815, Until Discontinued, Do not break, chew, or crush. Given 08/03/2024 8:49 AM CHEMISTRY PHYSICS TEACHER 40 mg Given 08/02/2024 9:38 AM CHEMISTRY PHYSICS TEACHER 40 mg Given 08/01/2024 8:34 AM CHEMISTRY PHYSICS TEACHER 40 mg pregabalin (LYRICA) capsule 150 mg 150 mg, Oral, 2 times daily, First dose on Wed08/01/24 at 2100, Until Discontinued Given 08/03/2024 8:48 AM CHEMISTRY PHYSICS TEACHER 150 mg Given 08/02/2024 9:15 PM CHEMISTRY PHYSICS TEACHER 150 mg Given 08/02/2024 9:37 AM CHEMISTRY PHYSICS TEACHER 150 mg sacubitril-valsartan (ENTRESTO) 24-26 MG tablet 1 tablet 1 tablet, Oral, 2 times daily, First dose on Wed07/31/24 at 2100, Until Discontinued Given 08/03/2024 8:48 A M CHEMISTRY PHYSICS TEACHER 1 tablet Given 08/02/2024 9:16 PM CHEMISTRY PHYSICS TEACHER 1 tablet Given 08/02/2024 9:37 AM CHEMISTRY PHYSICS TEACHER 1 tablet sertraline (ZOLOFT) tablet 50 mg 50 mg, Oral, Daily, First dose on Wed07/31/24 at 1815, Until Discontinued Given 08/03/2024 8:49 AM CHEMISTRY PHYSICS TEACHER 50 mg Given 08/02/2024 9:38 AM CHEMISTRY PHYSICS TEACHER 50 mg Given 08/01/2024 8:34 AM CHEMISTRY PHYSICS TEACHER 50 mg tiotropium (SPIRIVA RESPIMAT) 2.5 MCG/ACT inhaler 2 puff 2 puff, Inhalation, Daily, First dose on Wed07/31/24 at 1815, Until Discontinued, Common canister Given 08/03/2024 7:32 AM CHEMISTRY PHYSICS TEACHER 2 puffs Given 08/02/2024 7:41 AM CHEMISTRY PHYSICS TEACHER 2 puffs Given 08/01/2024 7:26 AM CHEMISTRY PHYSICS TEACHER 2 puffs traZODone (DESYREL) tablet 300 mg 300 mg, Oral, Nightly at bedtime, First dose on Wed07/31/24 at 2100, Until Discontinued Given 08/02/2024 9:16 PM CHEMISTRY PHYSICS TEACHER 3 00 mg Given 08/01/2024 9:09 PM CHEMISTRY PHYSICS TEACHER 300 mg Given 07/31/2024 8:53 PM CHEMISTRY PHYSICS TEACHER 300 mg documented in this encounter Active and Recently Administered Medications Times are shown in CHEMISTRY PHYSICS TEACHER. Scheduled Medication Order 08/01/2024 08/02/2024 08/03/2024 allopurinol [...] Reason: Provider Order - Comment: Kamari Peterson, CAREER AND TECHNOLOGY EDUCATION TEACHER hold) folic acid (FOLVITE) tablet 1 mg [...] Provider: Marlin Darnell RN)2114 (Given - Provider: Alyl Infante RN) 0848 (Given - Provider: Abril [...] documented as of this encounter Care Teams Quarantine Officer Relationship Specialty Start Date End Date Megan Infante MD [address] [place] [address] PCP - General FAMILY PRACTICE 04/06/16 Zaki Ortiz MD [address] [place] [address] Consulting Physician PULMONARY DISEASE 07/12/19 Concetta Acevedo MD [address] [place] [id number] [id number] Surgeon NEUROLOGICAL SURGERY 12/16/22 Jeff Grace MD [address] [place] [address] [id number] Consulting Physician INTERNAL MEDICINE 02/11/23 Brit Gonzáles MD [address] [place] [address] Consulting Physician CARDIOVASCULAR DISEASE 12/29/23 documented as of this encounter
--- OUTSIDE RECORDS SUMMARY | 2024-09-03 20:35 | XMS_ITS | Encounter Summary ---
Author Organization [facility] Address [facility]. [place], [place] [address] [place] [address] Care Team Providers Care Clinician Oncology Name Role Phone Megan Infante MD Primary Care Provider [phone] Zaki Ortiz MD Unavailable [phone] Concetta Acevedo MD Unavailable + [phone] Jeff Grace MD Unavailable Brit Gonzáles MD Unavailable Reason for Referral * Imaging (Emergency) - New Request Specialty Diagnoses / Procedures Referred By Yung sequeira Referred To Contact RADIOLOGY Procedures CT HEAD WO CON Corrine Goode MD [address] [place] [address] Phone: tel: fax: Referral ID Status Reason Start Date Expiration Date V isits Requested Visits Authorized [id number] New Request 05/02/2024 05/02/2025 1 1 Reason for Visit * Reason Comments Weakness Weakness, shaky, dif ficulty concentrating Encounter Details Date Type Department Care Team (Late st Contact Info) Description 05/02/2024 1:06 PM CDT - 05/03/2024 3:41 AM CDT Emergency [facility] [address] [place] [address] [place] [address] Corrine Goode MD [address] [place] [address] Weakness (Weakness, shaky, difficulty concentrating) Discharge Disposition: Transfer to Acute Care [facility] Social History Tobacco Use Types Packs/Day Years Used Date Smoking Tobacco: Former Passive Smoke Exposure: Past Smokeless Tobacco: Former Chew Alcohol Use Standard Drinks/Week Comments Yes 0 (1 standard drink = 0.6 oz pur e alcohol) 4 beers per week [facility] Utilities Answer Date Recorded In the past 12 months has [employer], [employer], or water [employer] threatened to shut off services in your [...] How often do you attend synagogue or congregation serv ices? Patient declined 02/16/2023 [...] move on to questions 3-9 0 12/01/2021 [facility] - Occupational [...] AM CDT Pt to be transferred to [facility] [place] [address] Room 929 Bed 1 * Denisha Jaime RN - 05/03/2024 1:59 AM CDT Spoke with Jena [facility] transfer, physician consult complete, pt accepted to [facility] Yoan Newell with Dr. Sharif, will call back when bed available. * Denisha Jaime RN - 05/03/2024 1:03 AM CDT Spoke with Holley at [facility]. No staff availability at this time to cover beds, will be transferred in the morning. * Denisha Jaime RN - 05/03/2024 12:44 AM CDT Spoke with Jena with [facility] transfer center - pt placed on waitlist for cardiac bed. Transfer dx Dysrhythmia & ALICIA. * Palomo Young RN - 05/02/2024 9:34 PM CDT Call made to [facility]. P.t. being added to [facility] waitlist facilities. * Palomo Young RN - 05/02/2024 9:12 PM CDT Call made to [facility] transfer line. Spoke to Joe. No beds available at this time. * Paolmo Young RN - 05/02/2024 7:53 PM CDT [...] (Incomplete) performed by Kilo Navarro MD at [facility] OR ??? COLONOSCOPY N/A 01/27/2022 COLONOSCOPY WITH COLD SNARE POLYPECTOMY performed by Kilo Navarro MD at [facility] OR ??? HIP ARTHROPLASTY Left ??? [...] 54 doubt hypercarbia source of his sympotoms [TOOL GRINDING MACHINE OPERATOR] 1437 Nurse states pt on monitor appeared to have 5 ventricularbeats in a row. The baseline not perfect but appears to be so. Will place pads on patient and try to transfer to another hospital with cardiology [TOOL GRINDING MACHINE OPERATOR] 1440 Pt has alicia with cr up to 2.35. he was also started on levoaquin by wound care. Unsure if this has contributed to it. Also pt is on warfarin so have added pt as levaquin can aslo affect inr. Pt is in the room, n ofurthe ventricular beats. Glucose repeate d50. Will start d10 at this time [TOOL GRINDING MACHINE OPERATOR] 1544 D/w [facility] who accepts. [TOOL GRINDING MACHINE OPERATOR] 2135 Pt takes norco regularly so will give evenin dose [TOOL GRINDING MACHINE OPERATOR] WedMay 03, 2024 0148 Spoke w nps at another ospital who accepts but no beds. [TOOL GRINDING MACHINE OPERATOR] ED Course User Index [TOOL GRINDING MACHINE OPERATOR] Corrine Goode MD ED Diagnosis: No diagnosis found. Disposition: No follow-up provider specified. Discharge Medications: New Prescriptions No medications on file 05/02/24 Corrine Goode MD 05/02/24 9964 * Felisa Arenas RN - 05/02/2024 1:13 [...] st Contact Info) Description 09/25/2024 2:00 PM MONUMENT [address] Appointment [facility] [address] [place] [address] Zayra Powell, UX ENGINEER [address] [place] [address] 10/16/2024 3:30 PM MONUMENT LETTERER Office Visit Center [facility] [address] [place] [address] Brit Gonzáles MD [address] [place] [address] [phone] documented as of this encounter Goals Goal [...] - 99 MG/DL 05/02/2024 9:03 PM CDT [facility] 05/02/2024 9:01 PM CDT us Corrine Goode MD POCT ORDERABLES - DEVICE Final Result Performing Organization Address City/[facility]/ZIP Co de Phone Number [facility] [address] [place] [address], * (ABNORMAL) POCT glucose (05/02/2024 5:11 PM CDT) GLUCOSE POC 121(H) 70 - 99 MG/DL 05/02/2024 5:13 PM CDT [facility] 05/02/2024 5:11 PM CDT us Corrine Goode MD POCT ORDERABLES - DEVICE Final Result [facility] [address] [place] [address], * (ABNORMAL) POCT glucose (05/02/2024 2:39 PM CDT) GLUCOSE POC 62(L) 70 - 99 MG/DL 05/02/2024 2:42 PM CDT [facility] 05/02/2024 2:39 PM CDT us Corrine Goode MD POCT ORDERABLES - DEVICE Final Result [facility] [address] [place] [address], * (ABNORMAL) DRUG SCREEN RAPID (05/02/2024 2:34 PM CDT) CANNABINOIDS SCREEN (U) NEGATIVE NEGATIVE 05/02/2024 3:08 PM CDT [facility] PHENCYCLIDINE PCP (U) NEGATIVE NEGATIVE 05/02/2024 3:08 PM CDT [facility] COCAINE METABOLITES (U) NEGATIVE NEGATIVE 05/02/2024 3:08 PM CDT [facility] METHAMPHETAMINE SCREEN (U) NEGATIVE NEGATIVE 05/02/2024 3:08 PM CDT [facility] OPIATE SCREEN (U) POSITIVE(A) NEGATIVE 2023 3:08 PM CDT [facility] AMPHETAMINE SCREEN (U) NEGATIVE NEGATIVE 05/02/2024 3:08 PM CDT [facility] BENZODIAZEPINES SCREEN (U) NEGATIVE NEGATIVE 05/02/2024 3:08 PM CDT [facility] TRICYCLIC ANTIDEPRESSANT SCREEN (U) NEGATIVE NEGATIVE 05/02/2024 3:08 PM CDT [facility] METHADONE (U) NEGATIVE NEGATIVE 05/02/2024 3:08 PM CDT [facility] BARBITURATES SCREEN (U) NEGATIVE NEGATIVE 05/02/2024 3:08 PM CDT [facility] OXYCODONE SCREEN (U) NEGATIVE NEGATIVE 05/02/2024 3:08 PM CDT [facility] URINE TOX COMMENT THIS TEST METHODOLOGY IS DESIGNED AND OFFERED A RAPID TURNAROUND, QUALITATIVE SCREENING PROCEDURE TO AID IN THE IMMEDIATE MEDICAL ASSESSMENT OF PATIENTS SUSPECTED OF SUBSTANCE ABUSE. 05/02/2024 2:35 PM CDT [facility] Comment: CLINICAL CONSIDERATION AND PROFESSIONAL JUDGMENT MUST BE APPLIED TO ANY DRUG OF ABUSE TEST RESULT, BOTH POSITIVE AND NEGATIVE. CONFIRMATORY QUANTITATIVE RESULTS ARE AVAILABLE THROUGH OUR REFERENCE LABORATORY. URINE SPECIMEN / Unknown 05/02/2024 2:34 PM CDT Corrine Goode MD URINE ORDERABLES Final Result [facility] [address] [place] [address], * URINALYSIS (05/02/2024 2:34 PM CDT) COLOR (U) YELLOW 05/02/2024 2:51 PM CDT [facility] TRANSPARENCY CLEAR 05/02/2024 2:51 PM CDT [facility] SPECIFIC GRAVITY (U) 1.015 1.000 - 1.025 05/02/2024 2:51 PM CDT [facility] U PH 5.5 5.0 - 8.0 05/02/2024 2:51 PM CDT [facility] LEUKOCYTES (U) NEGATIVE NEGATIVE 05/02/2024 2:51 PM CDT [facility] NITRITES NEGATIVE NEGATIVE 05/02/2024 2:51 PM CDT [facility] PROTEIN RANDOM (U) NEGATIVE NEGATIVE 05/02/2024 2:51 PM CDT [facility] GLUCOSE (U) NEGATIVE NEGATIVE 05/02/2024 2:51 PM CDT [facility] KETONES MG/DL (U) NEGATIVE NEGATIVE 05/02/2024 2:51 PM CDT [facility] UROBILINOGEN 0.2 <1.0 EU/DL 05/02/2024 2:51 PM CDT [facility] BILIRUBIN (U) NEGATIVE NEGATIVE 05/02/2024 2:51 PM CDT [facility] BLOOD (U) NEGATIVE NEGATIVE 05/02/2024 2:51 PM CDT [facility] WBC/HPF 0-5 0 - 5 /HPF 05/02/2024 2:51 PM CDT [facility] EPI/LPF OCCASIONAL /LPF 05/02/2024 2:51 PM CDT [facility] BACTERIA (U) TRACE /HPF 05/02/2024 2:51 PM CDT [facility] OTHER CASTS (U) HYALINE /LPF 2:51 PM CDT [facility] Comment:5-10 URINE SPECIMEN OBTAINED BY CLEAN CATCH PROCEDURE / Unknown 05/02/2024 2:34 PM CDT us Corrine Goode MD URINE ORDERABLES Final Result [facility] [place] [address], * XR CHEST PORTABLE (05/02/2024 2:26 PM CDT) Anatomical Region Laterality Modality Chest Radiographic Stephie ging 05/02/2024 2:31 PM CDT Impressions 05/02/2024 2:36 PM CDT IMPRESSION: 1. Probable mild interstitial edema. No focal infiltrates. 2. Stable cardiomegaly. Ordered By: CORRINE GOODE Interpreted By: Nicko Portillo MD, 05/02/2024 2:31 PM Narrative 05/02/2024 2:[address] [place] [address] Examination: Portable chest. Exam time: 1343 hours. [...] Procedure Note Nicko Portillo MD - 05/02/[address] [place] [address] Examination: Portable chest. Exam time: 1343 hours. [...] 2:22 PM Narrative 05/02/2024 2:26 PM CDT [address] [place] [address] DATE: 05/02/2024 1:52 PM EXAMINATION: CT of [...] Procedure Note Yimi Li MD - 05/02/2024 [place] [address] [facility] [place] [address] DATE: 05/02/2024 1:52 PM EXAMINATION: CT of [...] PM CDT) 05/02/2024 1:53 PM CDT Narrative [facility] - 05/02/2024 8:27 PM CDT ? [facility] ?[address] [place] ??[address] ? Test Date: ?2024-05-02 Pat Name: ? OBIE SIMS ?Department: ?? 3 ? Room: ? EXAM 505 Gender: ? Male ? Contaminated Land Consultant: ?? : ?1955 ? Requested By: CORRINE GOODE Order Number: [id number] ? Reading MD: ?? Karolina Meieru ? Measurements Intervals ?[place] ? Rate: ? 60 ? P: ? VA: ? 0 ?QRS: ?122 QRSD: ? 145 ?T: ?83 QT: ? 465 ? QTc: ?465 ? Interpretive Statements ATRIAL FIBRILLATION RIGHT AXIS DEVIATION INTRAVENTRICULAR CONDUCTION DELAY Procedure Note Karolina Parekh MD - 05/02/[address] [place] [address] Test Date: 2024-05-02 Pat Name: OBIE BETHANY Department: 3 Room: EXAM 505 Gender: Male Contaminated Land Consultant: : 1955 Requested By: CORRINE GOODE Order Number: [id number] Sage MD: Martin Measurements Intervals [place] Rate: 60 P: VA: 0 QRS: 122 QRSD: 145 T: 83 QT: 465 QTc: 465 Interpretive Statements ATRIAL FIBRILLATION RIGHT AXIS DEVIATION INTRAVENTRICULAR CONDUCTION DELAY us Corrine Goode MD ECG ORDERABLES Final Result [facility] * (ABNORMAL) ARTERIAL BLOOD GAS (05/02/2024 1:50 PM CDT) PH ARTERIAL 7.31(L) 7.35 - 7.45 05/02/2024 2:03 PM CDT [facility] PCO2 54.0(H) 35 - 45 MMHG 05/02/2024 2:03 PM CDT [facility] PO2 33.0(LL) 80 - 100 MMHG 05/02/2024 2:03 PM CDT [facility] Comment: CALLED TO ELVIA WALLACE RN ER ON 05.02.24 AT 1415 BY READ BACK AND VERIFIED TOTAL CO2 ARTERIAL 28.9(H) 19.0 - 24.0 MMOL/L 05/02/2024 2:03 PM CDT [facility] BASE DEFICIT 0.0 0 - 2 MMOL/L 05/02/2024 2:03 PM CDT [facility] O2 SATURATION 57(L) 94.0 - 98.0 % 05/02/2024 2:03 PM CDT [facility] BICARB ARTERIAL 27.2 21.0 - 28.0 MMOL/L 05/02/2024 2:03 PM CDT [facility] HEATHER TEST AOK 05/02/2024 1:55 PM CDT [facility] O2 ADMIN ARTERIAL ROOM AIR 05/02/2024 1:55 PM CDT [facility] DRAW SITE ARTERIAL LRA 05/02/2024 1:55 PM CDT [facility] 05/02/2024 1:50 PM CDT us Corrine Goode MD LABORATORY Final Result [facility] [address] [place] [address], * (ABNORMAL) POCT glucose (05/02/2024 1:46 PM CDT) GLUCOSE POC 63(L) 70 - 99 MG/DL 05/02/2024 1:48 PM CDT [facility] 05/02/2024 1:46 PM CDT us Corrine Goode MD POCT ORDERABLES - DEVICE Final Result Performing Organization Address [facility] Co de Phone Number [facility] [address] [place] [address], * (ABNORMAL) PARTIAL THROMBOPLASTIN TIME,PTT (05/02/2024 1:37 PM CDT) PTT 59.9(H) 25.1 - 36.5 SEC 05/02/2024 2:52 PM CDT [facility] Comment:THERAPEUTIC RANGE: 4 6.2-77.0 SEC 05/02/2024 1:37 PM CDT us Corrine Goode MD LABORATORY Final Result Performing Organization Address [facility] Co de Phone Number [facility] [address] [place] [address], [place] [phone] * (ABNORMAL) PROTIME/INR, VENOUS (05/02/2024 1:37 PM CDT) PROTIME 58.7(H) 9.4 - 12.5 SEC 05/02/2024 2:52 PM CDT [facility] INR 5.2(HH) 0.8 - 1.0 05/02/2024 2:52 PM CDT [facility] Comment: CRITICAL VALUE CALLED TO JENNIFER MENDIETA ER 05/02/24 1448 READ BACK AND VERIFIED 05/02/2024 1:37 PM CDT us Corrine Goode MD LABORATORY Final Result Performing Organization Address [facility]/ZIP Co de Phone Number [facility] [address] [place] [address], * ETHANOL (05/02/2024 1:37 PM CDT) ALCOHOL S/P/B <0.003 <0.003 G/DL 05/02/2024 2:30 PM CDT [facility] 05/02/2024 1:37 PM CDT us Corrine Goode MD LABORATORY Final Result [facility] [address] [place] [address], [place] [phone] * (ABNORMAL) PRO-BRAIN NATRIURETIC PEPTIDE (05/02/2024 1:37 PM CDT) PRO-B TYPE NATRIURETIC PEPTIDE 670(H) <125 PG/ML 05/02/2024 2:17 PM CDT [facility] Comment: CUT POINTS ESTABLISHED BY [...] us Corrine Goode MD LABORATORY Final Result [facility] [address] [place] [address], [place] [phone] * (ABNORMAL) THYROID STIM HORMONE, TSH (05/02/2024 1:37 PM CDT) TSH 6.516(H) 0.358 - 3.740 uIU/ML 05/02/2024 2:26 PM CDT [facility] Comment: ASSAY PERFORMED BY CHEMILUMINESCENT IMMUNOASSAY METHODOLOGY USING SIEMENS DIMENSION REAGENT. PATIENT RESULTS DETERMINED BY ASSAYS FROM DIFFERENT MANUFACTURERS AND/OR BY DIFFERENT METHODS MAY NOT BE COMPARABLE. 05/02/2024 1:37 PM CDT us Corrine Goode MD LABORATORY Final Result Performing Organization Address [facility] Co de Phone Number [facility] [address] [place] [address], * MAGNESIUM (05/02/2024 1:37 PM CDT) Pathologist [facility] MAGNESIUM 2.2 1.8 - 2.4 MG/DL 05/02/2024 2:17 PM CDT [facility] 05/02/2024 1:37 PM CDT us Corrine Goode MD LABORATORY Final Result Performing Organization Address [facility] Co de Phone Number [facility] [address] [place] [address], * TROPONIN, QUANT (05/02/2024 1:37 PM CDT) Pathologist [facility] TROPONIN I HIGH SENSITIVITY 30 0 - 76 ng/L 05/02/2024 2:17 PM CDT [facility] 05/02/2024 1:37 PM CDT us Corrine Goode MD LABORATORY Final Result Performing Organization Address [facility] Co de Phone Number [facility] [address] [place] [address], * (ABNORMAL) COMPREHENSIVE METABOLIC PANEL (05/02/2024 1:37 PM CDT) SODIUM S/P/B 137 136 - 145 MMOL/L 05/02/2024 2:17 PM CDT [facility] POTASSIUM S/P/B 5.2(H) 3.5 - 5.1 MMOL/L 05/02/2024 2:17 PM CDT [facility] CHLORIDE S/P/B 103 98 - 107 MMOL/L 05/02/2024 2:17 PM T [facility] CO2 28.0 21.0 - 32.0 MMOL/L 05/02/2024 2:17 PM [facility] GLUCOSE 60(L) 70 - 99 MG/DL 05/02/2024 2:17 PM [facility] Comment: FASTING GLUCOSE 100 TO 125 MG/DL IS CONSISTENT WITH IMPAIRED FASTING GLUCOSE. FASTING GLUCOSE >125 MG/DL IS CONSISTENT WITH DIABETES. RANDOM GLUCOSE >200 MG/DL WITH HYPERGLYCEMIC SYMPTOMS IS CONSISTENT WITH DIABETES. PER ADA GUIDELINES BUN 56(H) 6 - 24 MG/DL 05/02/2024 2:17 PM T [facility] CREATININE S/P/B 2.35(H) 0.70 - 1.30 MG/DL 05/02/2024 2:17 PM [facility] CALCIUM S/P/B 8.9 8.4 - 10.5 MG/DL 05/02/2024 2:17 PM [facility] BILIRUBIN TOTAL S/P/B 0.5 0.2 - 1.0 MG/DL 05/02/2024 2:17 PM [facility] Comment: THIS ASSAY IS NOT RECOMMENDED FOR PATIENTS UNDERGOING TREATMENT WITH ELTROMBOPAG DUE TO THE POTENTIAL FOR FALSELY ELEVATED RESULTS. ALKALINE PHOSPHATASE S/P/B 144(H) 45 - 115 U/L 05/02/2024 2:17 PM [facility] AST 20 15 - 37 U/L 05/02/2024 2:17 PM [facility] ALT 19 16 - 63 U/L 05/02/2024 2:17 PM [facility] TOTAL PROTEIN S/P/B 8.0 6.4 - 8.2 G/DL 05/02/2024 2:17 PM [facility] ALBUMIN S/P/B 3.4 3.4 - 5.0 G/DL 05/02/2024 2:17 PM [facility] ANION GAP 6.0 5.0 - 15.0 MMOL/L 05/02/2024 2:17 PM CDT [facility] OSMOLALITY (CALC) 297 MOSM/KG 024 2:17 PM CDT [facility] Comment:REFERENCE RANGE NOT ESTABLISHED GFR ESTIMATE 29(L) >89 ML/MIN/1. 73 M2 05/02/2024 2:17 PM CDT [facility] GFR NOTES GFR REFERENCE S: 05/02/2024 2:17 PM CDT [facility] Comment: THE ESTIMATED GFR IS [...] CDT Corrine Goode MD LABORATORY Final Result [facility] [address] [place] [address], * (ABNORMAL) CBC W/DIFF AUTOMATED (05/02/2024 1:37 PM CDT) WBC 10.28 4.00 - 10.80 x10'3/uL 05/02/2024 1:51 PM CDT [facility] RBC 4.59 4.50 - 6.10 x10'6/uL 05/02/2024 1:51 PM CDT [facility] HGB 13.1 13.0 - 18.0 G/DL 05/02/2024 1:51 PM CDT [facility] HCT 41.7 37.0 - 52.0 % 05/02/2024 1:51 PM CDT [facility] MCV 90.8 78.0 - 100.0 FL 05/02/2024 1:51 PM CDT [facility] MCH 28.5 27.0 - 31.0 PG 05/02/2024 1:51 PM CDT [facility] MCHC 31.4(L) 33.0 - 36.0 G/DL 05/02/2024 1:51 PM CDT [facility] RDW 17.0(H) 11.5 - 14.5 % 05/02/2024 1:51 PM CDT [facility] PLT 135(L) 150 - 350 x10'3/uL 05/02/2024 1:51 PM CDT [facility] MPV 11.8(H) 7.4 - 10.4 FL 05/02/2024 1:51 PM CDT [facility] CBC COMMENT NORMAL REFERENCE RANGE NOT ESTABLISHED FOR THE PROPORTIONAL LEUKOCYTE DIFFERENTIAL. 05/02/2024 1:51 PM CDT [facility] NEUTROPHILS % 77.6 % 05/02/2024 2:20 PM CDT [facility] LYMPHOCYTES % 9.3 % 05/02/2024 2:20 PM CDT [facility] MONOCYTES % 8.7 % 05/02/2024 2:20 PM CDT [facility] EOSINOPHILS % 3.6 % 05/02/2024 2:20 PM CDT [facility] BASOPHILS % 0.4 % 05/02/2024 2:20 PM CDT [facility] IMMATURE GRANS % 0.4 % 05/02/20 24 2:20 PM CDT [facility] NRBC % 0.0 % 05/02/2024 2:20 PM CDT [facility] ABS. NEUTROPHILS 7.98 1.60 - 8.30 x10'3/uL 05/02/2024 2:20 PM CDT [facility] ABS. LYMPHOCYTES 0.96 0.80 - 4.70 x10'3/uL 05/02/2024 2:20 PM CDT [facility] ABS. MONOCYTES 0.89 0.00 - 1.50 x10'3/uL 05/02/2024 2:20 PM CDT [facility] ABS. EOSINOPHILS 0.37 0.00 - 0.40 x10'3/uL 05/02/2024 2:20 PM CDT [facility] ABS. BASOPHILS 0.04 0.00 - 0.20 x10'3/uL 05/02/2024 2:20 PM CDT [facility] ABS. IMMATURE GRANULOCYTES 0.04(H) 0.00 - 0.03 x10'3/uL 05/02/2024 2:20 PM CDT [facility] ABS. NUCLEATED RBC'S 0.00 0.00 - 0.01 x10'3/uL 05/02/2024 2:20 PM CDT [facility] PLT MORPH. DECREASED 05/02/2024 2:20 PM CDT [facility] RBC MORPHOLOGY NORMAL 05/02/2024 2:20 PM CDT [facility] 05/02/2024 1:37 PM CDT Corrine Goode MD LABORATORY Final Result [facility] [address] [place] [address], documented in this encounter Visit Diagnoses Not [...] documented as of this encounter Care Teams Clinician Oncology Relationship Specialty Start Date End Date Megan Infante MD [address] [place] [address] [place] [phone] PCP - General FAMILY PRACTICE 04/06/16 Zaki Ortiz MD [address] [facility] [place] [phone] Consulting Physician PULMONARY DISEASE 07/12/19 Concetta Acevedo MD [address] [place] [address] Surgeon NEUROLOGICAL SURGERY 12/16/22 Jeff Grace MD [address] [place] [address] Consulting Physician INTERNAL MEDICINE 02/11/23 Brit Gonzáles MD [address] [place] [address] Consulting Physician CARDIOVASCULAR DISEASE 12/29/23 documented as of this encounter
--- OUTSIDE RECORDS SUMMARY | 2024-09-03 20:35 | XMS_ITS | Encounter Summary ---
Author Organization [facility] Address Counts include 234 beds at the [facility] [place] [place] [address] [place] [address] Care Team Providers Care Concrete Finisher Apprentice Name Role Phone Megan Infante MD Primary Care Provider [phone] Zaki Ortiz MD Unavailable [phone] Concetta Acevedo MD Unavailable + [phone] Jeff Grace MD Unavailable Brit Gonzáles MD Unavailable Encounter Details Date Type Department Care Team (Late st Contact Info) Description 05/16/2024 12:49 PM CDT - 05/16/2024 11:59 PM CDT Hospital Encounter [facility] [address] [place] [address] Zayra Powell, [facility] [address] [place] [address] Discharge Disposition: Home or Self Care (Routine Discharge) Social History Tobacco Use Types Packs/Day Years Used Date Smoking Tobacco: Former Passive Smoke Exposure: Past Smokeless Tobacco: Former Chew Alcohol Use Standard Drinks/Week Comments Yes 0 (1 standard drink = 0.6 oz pur e alcohol) 4 beers per week [facility] Utilities Answer Date Recorded In the past 12 months has e electric, gas, oil, or water [employer] threatened to shut off services in your [...] declined 02/16/2023 How often do you attend anabaptist or presybeterian serv ices? Patient declined 02/16/2023 Do you belong to any clubs o r organizations such as anabaptist groups, unions, fraternal or athletic groups, or [...] to questions 3-9 0 12/01/2021 [facility] - [facility]ational [...] Info) Description 09/25/2024 2:00 PM MARKETING SUPPORT MANAGER Appointment [facility] [address] [place] [address] Zayra Powell, FINANCIAL SECRETARY [address] [place] [id number] 10/16/2024 3:30 PM MARKETING SUPPORT MANAGER Office Visit [facility] [address] [place] [phone] Brit Gonzáles MD [address] [place] [address] documented as of this encounter Goals Goal [...] documented as of this encounter Care Teams Concrete Finisher Apprentice Relationship Specialty Start Date End Date Megan Infante MD [address] [place] [id number] PCP - General FAMILY PRACTICE 04/06/16 Zaki Ortiz MD [facility] [place] [phone] Consulting Physician PULMONARY DISEASE 07/12/19 Saraho-Concetta Pond MD [address] [place] [address] [id number] Surgeon NEUROLOGICAL SURGERY 12/16/22 Jeff Grace MD [address] [place] [address] [phone] Consulting Physician INTERNAL MEDICINE 02/11/23 Brit Gonzáles MD [address] [place] [address] Consulting Physician CARDIOVASCULAR DISEASE 12/29/23 documented as of this encounter
--- OUTSIDE RECORDS SUMMARY | 2024-09-03 20:35 | XMS_ITS | Encounter Summary ---
Author Organization [facility] Address [facility]6 [facility] [place] [address] [place] [address] Care Team Providers Care Acquisition Specialist Name Role Phone Megan Infante MD Primary Care Provider [phone] Zaki Ortiz MD Unavailable [phone] Concetta Acevedo MD Unavailable + [phone] Jeff Grace MD Unavailable Brit Gonzáles MD [...] the past 12 months has [facility] [employer], gas, oil, or water [employer] threatened to shut off services in your [...] How often do you attend pentecostal or anabaptist serv ices? Patient declined 02/16/2023 [...] slept in a usp (including now)? Patient declined 07/12/2023 Sex and [...] Date Author Status No 07/12/2023 6:58 PM WASTEWATER TREATMENT PLANT ATTENDANT Liliana Gutierrez, RN Active documented in this encounter Plan of Treatment Upcoming Encounters Date Type Department Care Team (Late st Contact Info) Description 09/25/2024 2:00 PM WASTEWATER TREATMENT PLANT ATTENDANT Appointment [facility] [address] [facility] [place] [address] Zayra Powell, CLOTH PRINTER HELPER 12[address] [facility] [place] [address] 10/16/2024 3:30 PM WASTEWATER TREATMENT PLANT ATTENDANT Office Visit [facility] [address] [facility] [place] [address] Brit Gonzáles MD 619 [place] [address] documented as of this encounter [...] as of this encounter Care Teams Acquisition Specialist Relationship Specialty Start Date End Date Megan Infante MD [address] [place] [address] PCP - General FAMILY PRACTICE 04/06/16 Zaki Ortiz MD [address] [address] Consulting Physician PULMONARY DISEASE 07/12/19 Concetta Acevedo MD [address] [place] [address] Surgeon NEUROLOGICAL SURGERY 12/16/22 Jeff Grace MD 619 [place] [address] Consulting Physician INTERNAL MEDICINE 02/11/23 Brit Gonzáles MD 619 [place] [address] Consulting Physician CARDIOVASCULAR DISEASE 12/29/23 documented as of this encounter
--- OUTSIDE RECORDS SUMMARY | 2024-09-03 20:35 | XMS_ITS | Encounter Summary ---
Author Organization [facility] Address [facility]6 [facility] [place] [address] [place] [address] Care Team Providers Care Copier Repair Technician Name Role Phone Megan Infante MD Primary Care Provider [phone] Zaki Ortiz MD Unavailable [phone] Concetta Acevedo MD Unavailable + [phone] Jeff Grace MD Unavailable Brit Gonzáles MD Unavailable Encounter Details Date Type Department Care Team (Latest Contact Info) Description 05/22/2024 Travel Social History Tobacco Use Types Packs/Day Years Used Date Smoking Tobacco: Former Passive Smoke Exposure: Past Smokeless Tobacco: Former Chew Alcohol Use Standard Drinks/Week Comments Yes 0 (1 standard drink = 0.6 oz pur e alcohol) 4 beers per week [facility] Utilities Answer Date Recorded In the past 12 months has [facility] [employer], gas, oil, or water [employer] threatened to shut off services in your [...] How often do you attend latter-day or latter-day serv ices? Patient declined 02/16/2023 [...] in a senior care (including now)? Patient declined 07/12/2023 Sex and [...] Date Author Status No 07/12/2023 6:58 PM TOOL PLANNER Liliana Gutierrez, RN Active documented in this encounter Plan of Treatment Upcoming Encounters Date Type Department Care Team (Late st Contact Info) Description 09/25/2024 2:[address] [facility] [address] [facility] [place] [address] Zayra Powell, SALES DEVELOPMENT DIRECTOR [address] [facility] [place] [address] 10/16/2024 3:30 PM TOOL PLANNER Office Visit [facility] [address] [facility] [place] [address] Brit Gonzáles MD 619 [place] [address] documented as of this encounter [...] documented as of this encounter Care Teams Copier Repair Technician Relationship Specialty Start Date End Date Megan Infante MD [address] [place] [address] PCP - General FAMILY PRACTICE 04/06/16 Zaki Ortiz MD [address] [place] [address] Consulting Physician PULMONARY DISEASE 07/12/19 Concetta Acevedo MD [address] [place] [address] Surgeon NEUROLOGICAL SURGERY 12/16/22 Jeff Grace MD 619 [place] [address] Consulting Physician INTERNAL MEDICINE 02/11/23 Brit Gonzáles MD 619 [place] [address] Consulting Physician CARDIOVASCULAR DISEASE 12/29/23 documented as of this encounter
--- OUTSIDE RECORDS SUMMARY | 2024-09-03 20:35 | XMS_ITS | Encounter Summary ---
Author Organization [facility] Address [facility]6 [place] [place] [address] [place] [address] Care Team Providers Care Fitness Plan Coordinator Name Role Phone Megan Infante MD Primary Care Provider [phone] Zaki Ortiz MD Unavailable [phone] Concetta Acevedo MD Unavailable + [phone] Jeff Grace MD Unavailable Brit Gonzáles MD Unavailable Encounter Details Date Type Department Care Team (Late st Contact Info) Description 04/27/2024 Orders Only [facility] [address] [place] [address] Megan Infante MD [address] [place] [address] Social History Tobacco Use Types Packs/Day Years Used Date Smoking Tobacco: Former Passive Smoke Exposure: Past Smokeless Tobacco: Former Chew Alcohol Use Standard Drinks/Week Comments Yes 0 (1 standard drink = 0.6 oz pur e alcohol) 4 beers per week [facility] Utilities Answer Date Recorded In the past 12 months has e [employer], gas, oil, or water [employer] threatened to shut off services in [...] How often do you attend religion or jainism serv ices? Patient declined 02/16/2023 [...] to questions 3-9 0 12/01/2021 [facility] ional [facility] - Occupational [...] Assessment Author Status No 07/12/2023 6:58 PM HEELER MACHINE Liliana Gutierrez RN Active documented as of [...] st Contact Info) Description 09/25/2024 2:00 PM HEELER MACHINE Appointment [facility] [address] [facility] [place] [address] Zayra Powell, HEADER DOCK [address] [place] [address] 10/16/2024 3:30 PM HEELER MACHINE Office Visit [facility] [address] [facility] [place] [address] Brit Gonzáles MD 619 [place] [address] documented as of this encounter Goals Goal Patient Goal Type Associated Problems Recent Progress Patient-Stated? Author Family - family caregiver with be involved in care transitions and discharge planning Lifestyle No Karen Quezada RN documented as of this encounter Results * (ABNORMAL) PROTIME/INR, VENOUS (04/27/2024 2:55 PM CDT) PROTIME 30.2(H) 9.4 - 12.5 SEC 04/27/2024 4:19 PM CDT [facility] INR 2.6(H) 0.8 - 1.0 04/27/2024 4:19 PM CDT [facility] 04/27/2024 2:55 PM CDT Megan Infante MD LABORATORY Final Result [facility] [address] [employer] [address] [phone] documented in this encounter Visit Diagnoses Diagnosis A-fib (CMS/HCC HHS/HCC)- Primary Atrial fibrillation documented in this encounter Additional Health Concerns Assessment Noted Time PHQ-9 Depression Total Score: 0 12/02/19 22 1:18 PM CDT documented as of this encounter Care Teams Fitness Plan Coordinator Relationship Specialty Start Date End Date Megan Infante MD [address] [place] [address] PCP - General FAMILY PRACTICE 04/06/16 Zaki Ortiz MD [address] [place] [address] Consulting Physician PULMONARY DISEASE 07/12/19 Concetta Acevedo MD [address] [place] [address]1482 Surgeon NEUROLOGICAL SURGERY 12/16/22 Jeff Grace MD [address] [place] [address] Consulting Physician INTERNAL MEDICINE 02/11/23 Brit Gonzáles MD 9 [place] [address] Consulting Physician CARDIOVASCULAR DISEASE 12/29/23 documented as of this encounter
--- OUTSIDE RECORDS SUMMARY | 2024-09-03 20:35 | XMS_ITS | Encounter Summary ---
Author Organization [facility] Address [facility]6 [facility] [place] [address] [place] [address] Care Team Providers Care Clerk Cashier Name Role Phone Megan Infante MD Primary Care Provider [phone] Zaki Ortiz MD Unavailable [phone] Concetta Acevedo MD Unavailable + [phone] Jeff Grace MD Unavailable Brit Gonzáles MD Unavailable Encounter Details Date Type Department Care Team (Latest Contact Info) Description 08/08/2024 Travel Social History Tobacco Use Types Packs/Day Years Used Date Smoking Tobacco: Former Passive Smoke Exposure: Past Smokeless Tobacco: Former Chew Alcohol Use Standard Drinks/Week Comments Yes 0 (1 standard drink = 0.6 oz pur e alcohol) 4 beers per week [facility] Utilities Answer Date Recorded In the past 12 months has [facility] [employer], gas, oil, or water [employer] threatened to shut off services in [...] How often do you attend moravian or orthodox serv ices? Patient declined 02/16/2023 Do you [...] a prison (including now)? Patient declined 07/12/2023 Housing Stability [...] any time in the past 12 m [facility], were you homeless or living in a prison (including now)? No 07/31/2024 Sex and Gender [...] Assessment Author Status No 07/31/2024 5:50 PM REHAB AID Abril Contreras RN Active documented as of this encounter Mental Status * Because of a physical, mental, or emotional condition, do you have serious difficulty concentrating, remembering, or making decisions? Answer Entry Date Author Status Yes 07/31/2024 5:50 PM REHAB AID Abril Contreras RN Active documented in this encounter Plan of Treatment Upcoming Encounters Date Type Department Care Team (Late st Contact Info) Description 09/25/2024 2:00 PM REHAB AID Appointment [facility] [address] [place] [address] Zayra Powell, ANESTHETIST [address] [place] [address] 10/16/2024 3:30 PM REHAB AID Office Visit [facility] [id number] [place] [address] Brit Gonzáles MD 619 [place] [address] documented as of this encounter [...] documented as of this encounter Care Teams Clerk Cashier Relationship Specialty Start Date End [place] [address] PCP - General FAMILY PRACTICE 04/06/16 [place] [address] Consulting Physician PULMONARY DISEASE 07/12/19 Concetta Acevedo MD [address] [place] [address] Surgeon NEUROLOGICAL SURGERY 12/16/22 Jeff Grace MD 619 [place], [place] 12[address] Consulting Physician INTERNAL MEDICINE 02/11/23 Brit Gonzáles MD 619 [place], [place] [address] Consulting Physician CARDIOVASCULAR DISEASE 12/29/23 documented as of this encounter
--- OUTSIDE RECORDS SUMMARY | 2024-09-03 20:35 | XMS_ITS | Encounter Summary ---
Author Organization [facility] Address [facility]6 [facility] [place] [address] [place] [address] Care Team Providers Care Log Carrier Operator Name Role Phone Megan Infante MD Primary Care Provider [phone] Zaki Ortiz MD Unavailable [phone] Concetta Acevedo MD Unavailable + [phone] Jeff Grace MD Unavailable Brit Gonzáles MD Unavailable Encounter Details Date Type Department Care Team (Late st Contact Info) Description 04/27/2024 4:11 PM CDT - 04/27/2024 11:59 PM T Hospital Encounter [facility] [address] [address] [place] [address] Megan Infante MD [address] [place] [address] Discharge Disposition: Home or Self [...] declined 02/16/2023 How often do you attend muslim or anglican serv ices? Patient declined 02/16/2023 Do you belong to any clubs o r organizations such as muslim groups, unions, fraternal or athletic groups, or [...] on to questions 3-9 0 12/01/2021 [facility] - Occupational Stress Questionnaire Answer Date [...] No 07/12/2023 Housing Stability Vital Sign Answer Stevenosn e Recorded In the last 12 months, [...] st Contact Info) Description 09/25/2024 2:00 PM EDUCATION REP Appointment [facility] [address] [place] [address] [address] Zayra Powell, [facility] [address] [place] [address] 10/16/2024 3:30 PM EDUCATION REP Office Visit [facility] [address] [place] [address] Brit Gonzáles MD 619 [place] [address] documented as of this encounter Goals Goal Patient Goal Type Associated Problems Recent Progress Patient-Stated? Author Family - family caregiver with be involved in care transitions and discharge planning Lifestyle No Karen Quezada RN documented as of this encounter Procedures Procedure Name Priority Date/Time Associated Diagnosis Comments PROTHROMBIN TIME, VENOUS Routine 04/27/2024 2:55 PM CDT A-fib ([facility]/HCC HHS/HCC) documented in this encounter Results * (ABNORMAL) PROTIME/INR, VENOUS (04/27/2024 2:55 PM CDT) PROTIME 30.2(H) 9.4 - 12.5 SEC 04/27/2024 4:19 PM CDT [facility] INR 2.6(H) 0.8 - 1.0 04/27/2024 4:19 PM CDT [facility] 04/27/2024 2:55 PM CDT Megan Infante MD LABORATORY Final Result [facility] [address] [place] [address], documented in this encounter Visit Diagnoses Diagnosis A-fib ([facility] HHS/HCC) Atrial fibrillation documented in this encounter Additional Health Concerns Assessment Noted Time PHQ-9 Depression Total Score: 0 12/02/19 22 1:18 PM CDT documented as of this encounter Care Teams Log Carrier Operator Relationship Specialty Start Date End Date Megan Infante MD [address] [place] [address] PCP - General FAMILY PRACTICE 04/06/16 Zaki Ortiz MD [address] [place] [address] Consulting Physician PULMONARY DISEASE 07/12/19 Concetta Acevedo MD [address] [place] [address] Surgeon NEUROLOGICAL SURGERY 12/16/22 Jeff Grace MD 619 [place] [address] Consulting Physician INTERNAL MEDICINE 02/11/23 Brit Gonzáles MD 619 [place] [address] Consulting Physician CARDIOVASCULAR DISEASE 12/29/23 documented as of this encounter
--- OUTSIDE RECORDS SUMMARY | 2024-09-03 20:35 | XMS_ITS | Encounter Summary ---
Author Organization [facility] Address [facility] [place] [address] [place] [address] Care Team Providers Care Window Installer Name Role Phone Megan Infante MD Primary Care Provider [phone] Zaki Ortiz MD Unavailable [phone] Concetta Acevedo MD Unavailable + [phone] Jeff Grace MD Unavailable Brit Gonzáles MD [...] [facility] Utilities Answer Date Recorded In the past 12 months has [facility] [employer], gas, oil, or water [employer] threatened to shut off services in your [...] How often do you attend zoroastrian or taoism serv ices? Patient declined 02/16/2023 [...] move on to questions 3-9 0 12/01/2021 [facility] of Occupat ional Health [...] Date Author Status No 07/12/2023 6:58 PM DIRECTOR HOUSEKEEPING Liliana Gutierrez, RN Active documented in this encounter Plan of Treatment Upcoming Encounters Date Type Department Care Team (Late st Contact Info) Description 09/25/2024 2:00 PM DIRECTOR HOUSEKEEPING Appointment [facility] [address] [facility] [place] [address] Zayra Powell, AUTISM TUTOR 1215 [facility] [place] [address] 10/16/2024 3:30 PM DIRECTOR HOUSEKEEPING Office Visit [facility] [address] [facility] [place] [address] Brit Gonzáles MD 619 [place] [address] documented as of this encounter [...] documented as of this encounter Care Teams Window Installer Relationship Specialty Start Date End Date Megan Infante MD [address] [place] [address] PCP - General FAMILY PRACTICE 04/06/16 Zaki Ortiz MD [address] [place] [address] Consulting Physician PULMONARY DISEASE 07/12/19 Concetta Acevedo MD [address] [place] [address] Surgeon NEUROLOGICAL SURGERY 12/16/22 Jeff Grace MD 619 [place] [address] Consulting Physician INTERNAL MEDICINE 02/11/23 Brit Gonzáles MD 619 [place] [address] Consulting Physician CARDIOVASCULAR DISEASE 12/29/23 documented as of this encounter
--- OUTSIDE RECORDS SUMMARY | 2024-09-03 20:35 | XMS_ITS | Encounter Summary ---
Author Organization [facility] Address [facility] [place] [address] [place] [address] Care Team Providers Care Procurement Analyst Name Role Phone Megan Infante MD Primary Care Provider [phone] Zaki Ortiz MD Unavailable [phone] Concetta Acevedo MD Unavailable + [phone] Jeff Grace MD Unavailable Brit Gonzáles MD Unavailable Encounter Details Date Type Department Care Team (Latest Contact Info) Description 04/27/2024 Travel Social History Tobacco Use Types Packs/Day Years Used Date Smoking Tobacco: Former Passive Smoke Exposure: Past Smokeless Tobacco: Former Chew Alcohol Use Standard Drinks/Week Comments Yes 0 (1 standard drink = 0.6 oz pur e alcohol) 4 beers per week [facility] Utilities Answer Date Recorded In the past 12 months has [facility] [employer], gas, oil, or water [employer] threatened to shut off services in your [...] How often do you attend uatsdin or church serv ices? Patient declined 02/16/2023 [...] move on to questions 3-9 0 12/01/2021 [facility] of Occupat ional Health [...] Date Author Status No 07/12/2023 6:58 PM BASE LOADER Liliana Gutierrez, RN Active documented in this encounter Plan of Treatment Upcoming Encounters Date Type Department Care Team (Late st Contact Info) Description 09/25/2024 2:[address] [facility] [address] [facility] [address] Zayra Powell, BABY FORMULA MIXER [address] [facility] [place] [address] 10/16/2024 3:30 PM BASE LOADER Office Visit [facility] [address] [facility] [place] [address] Brit Gonzáles MD 619 [place] [address] documented as of this encounter [...] documented as of this encounter Care Teams Procurement Analyst Relationship Specialty Start Date End Date Megan Infante MD [address] [place] [address] PCP - General FAMILY PRACTICE 04/06/16 Zaki Ortiz MD [address] [place] [address] Consulting Physician PULMONARY DISEASE 07/12/19 Concetta Acevedo MD [address] [place] [address] Surgeon NEUROLOGICAL SURGERY 12/16/22 Jeff Grace MD 619 [place] [address] Consulting Physician INTERNAL MEDICINE 02/11/23 Brit Gonzáles MD [address]19 [place] [address] Consulting Physician CARDIOVASCULAR DISEASE 12/29/23 documented as of this encounter
--- OUTSIDE RECORDS SUMMARY | 2024-09-03 20:35 | XMS_ITS | Encounter Summary ---
Author Organization [facility] Address [facility]6 [facility] [place] [address] [place] [address] Care Team Providers Care Doubling Machine Operator Name Role Phone Megan Infante MD Primary Care Provider [phone] Zaki Ortiz MD Unavailable [phone] Concetta Acevedo MD Unavailable + [phone] Jeff Grace MD Unavailable Brit Gonzáles MD Unavailable Encounter Details Date Type Department Care Team (Late st Contact Info) Description 05/30/2024 12:54 PM CDT - 05/30/2024 11:59 PM CDT Hospital Encounter [facility] [address] [place] [address] Zayra Powell, [facility] [address] [place] [address] Discharge Disposition: Home or Self Care (Routine Discharge) Social History Tobacco Use Types Packs/Day Years Used Date Smoking Tobacco: Former Passive Smoke Exposure: Past Smokeless Tobacco: Former Chew Alcohol Use Standard Drinks/Week Comments Yes 0 (1 standard drink = 0.6 oz pur e alcohol) 4 beers per week [facility] Utilities Answer Date Recorded In the past 12 months has e electric, gas, oil, or water [employer] threatened to shut off services in your [...] move on to questions 3-9 0 12/01/2021 [facility] - Occupational Stress Questionnaire [...] st Contact Info) Description 09/25/2024 2:00 PM SWITCH CREW SUPERVISOR Appointment [facility] [address] [place] [address] Zayra Powell, STUDENT RECORDS SPECIALIST [address] [place] [address] 10/16/2024 3:30 PM SWITCH CREW SUPERVISOR Office Visit [facility] [address] [place] [address] Brit Gonzáles MD 619 [place] [address] documented as of this encounter Goals Goal [...] documented as of this encounter Care Teams Doubling Machine Operator Relationship Specialty Start Date End Date Megan Infante MD [address] [facility] [place] [address] PCP - General FAMILY PRACTICE 04/06/16 Zaki Ortiz MD [address] [facility] [place] [address] Consulting Physician PULMONARY DISEASE 07/12/19 Concetta Acevedo MD [address] [place] [address] Surgeon NEUROLOGICAL SURGERY 12/16/22 Jeff Grace MD [address] [place] [address] Consulting Physician INTERNAL MEDICINE 02/11/23 Brit Gonzáles MD 9 [place] [address] Consulting Physician CARDIOVASCULAR DISEASE 12/29/23 documented as of this encounter
--- OUTSIDE RECORDS SUMMARY | 2024-09-03 20:35 | XMS_ITS | Encounter Summary ---
Author Organization [facility] Address [facility] [place] [address] [place] [address] Care Team Providers Care Gas Flow Regulator Name Role Phone Megan Infante MD Primary Care Provider [phone] Zaki Ortiz MD Unavailable [phone] Concetta Acevedo MD Unavailable + [phone] Jeff Grace MD Unavailable Brit Gonzáles MD Unavailable Encounter Details Date Type Department Care Team (Latest Contact Info) Description 05/30/2024 Travel Social History Tobacco Use Types Packs/Day Years Used Date Smoking Tobacco: Former Passive Smoke Exposure: Past Smokeless Tobacco: Former Chew Alcohol Use Standard Drinks/Week Comments Yes 0 (1 standard drink = 0.6 oz pur e alcohol) 4 beers per week [facility] Utilities Answer Date Recorded In the past 12 months has [facility] [employer], gas, oil, or water [employer] threatened to shut off services in [...] How often do you attend confucianism or religion serv ices? Patient declined 02/16/2023 Do you [...] Date Author Status No 07/12/2023 6:58 PM FISH FILLETER Liliana Gutierrez, RN Active documented in this encounter Plan of Treatment Upcoming Encounters Date Type Department Care Team (Late st Contact Info) Description 09/25/2024 2:[address] [facility] [address] [facility] [place] [address] Zayra Powell, TOOL PROCUREMENT COORDINATOR [address] [facility] [place] [address] 10/16/2024 3:30 PM FISH FILLETER Office Visit [facility] [address] [facility] [place] [address] Brit Gonzáles MD [address]19 [place] [address] documented as of this encounter [...] as of this encounter Care Teams Gas Flow Regulator Relationship Specialty Start Date End Date Megan Infante MD [address] [place] [address] PCP - General FAMILY PRACTICE 04/06/16 Zaki Oritz MD [address] [place] [address] Consulting Physician PULMONARY DISEASE 07/12/19 Concetta Acevedo MD [address] [place] [address] Surgeon NEUROLOGICAL SURGERY 12/16/22 Jeff Grace MD 619 [place] [address] Consulting Physician INTERNAL MEDICINE 02/11/23 Brit Gonzáles MD [address]19 [place] [address] Consulting Physician CARDIOVASCULAR DISEASE 12/29/23 documented as of this encounter
--- OUTSIDE RECORDS SUMMARY | 2024-09-03 20:35 | XMS_ITS | Encounter Summary ---
Author Organization [facility] Address [facility] [place] [place] [address] [place] [address] Care Team Providers Care Expansion Envelope Maker Hand Name Role Phone Megan Infante MD Primary Care Provider [phone] Zaki Ortiz MD Unavailable [phone] Concetta Acevedo MD Unavailable + [phone] Jeff Grace MD Unavailable Brit Gonzáles MD Unavailable Encounter Details Date Type Department Care Team (Latest Contact Info) Description 05/02/2024 Travel Social History Tobacco Use Types Packs/Day Years Used Date Smoking Tobacco: Former Passive Smoke Exposure: Past Smokeless Tobacco: Former Chew Alcohol Use Standard Drinks/Week Comments Yes 0 (1 standard drink = 0.6 oz pur e alcohol) 4 beers per week [facility] Utilities Answer Date Recorded In the past [address] [facility] [employer], gas, oil, or water [employer] threatened to shut off services in your [...] How often do you attend yazidism or gnosticist serv ices? Patient declined 02/16/2023 [...] Date Author Status No 07/12/2023 6:58 PM UNIT MANAGER RN Liliana Gutierrez, RN Active documented in this encounter Plan of Treatment Upcoming Encounters Date Type Department Care Team (Late st Contact Info) Description 09/25/2024 2:00 PM UNIT MANAGER RN Appointment [facility] [address] [place] [address] Zayra Powell, CLIENT RELATIONSHIP EXECUTIVE [address] [facility] [place] [address] 10/16/2024 3:30 PM UNIT MANAGER RN Office Visit [facility] [address] [facility] [place] [address] Brit Gonzáles MD 619 [place] [address] documented as of this encounter [...] documented as of this encounter Care Teams Expansion Envelope Maker Hand Relationship Specialty Start Date End Date Megan Infante MD [address] [place] [address] PCP - General FAMILY PRACTICE 04/06/16 Zaki Ortiz MD [address] [place] [address] Consulting Physician PULMONARY DISEASE 07/12/19 Concetta Acevedo MD [address] [place] [address] Surgeon NEUROLOGICAL SURGERY 12/16/22 Jeff Grace MD [address] [place] [address] Consulting Physician INTERNAL MEDICINE 02/11/23 Brit Gonzáles MD 619 [place] [address] Consulting Physician CARDIOVASCULAR DISEASE 12/29/23 documented as of this encounter
--- OUTSIDE RECORDS SUMMARY | 2024-09-03 20:35 | XMS_ITS | Encounter Summary ---
Author Organization [facility] Address [facility] [address] [place] [address] Care Team Providers Care Seismographer Name Role Phone Megan Infante MD Primary Care Provider [phone] Zaki Ortiz MD Unavailable [phone] Concetta Acevedo MD Unavailable + [phone] Jeff Grace MD Unavailable Brit Gonzáles MD Unavailable Encounter Details Date Type Department Care Team (Late st Contact Info) Description 05/02/2024 11:54 AM CDT - 05/02/2024 12:14 PM T Hospital Encounter [facility] [address] [phone] Maren Mata, CAR RENTAL AGENT [address] [place] [address] Discharge Disposition: Home or Self Care (Routine Discharge) Social History Tobacco Use Types Packs/Day Years Used Date Smoking Tobacco: Former Passive Smoke Exposure: Past Smokeless Tobacco: Former Chew Alcohol Use Standard Drinks/Week Comments Yes 0 (1 standard drink = 0.6 oz pur e alcohol) 4 beers per week [facility] Utilities Answer Date Recorded In [...] declined 02/16/2023 How often do you attend hindu or zoroastrianism serv ices? Patient declined 02/16/2023 Do you belong to any clubs o r organizations such as hindu groups, unions, fraternal or athletic groups, or [...] 0 12/01/2021 [facility] - Occupational Stress Questionnaire Answer Date [...] st Contact Info) Description 09/25/2024 2:00 PM MILITARY SCIENCE INSTRUCTOR Appointment [facility] [address] [place] [address] Maren Mata, [facility] [address] [place] [address] 10/16/2024 3:30 PM MILITARY SCIENCE INSTRUCTOR Office Visit [facility] [address] [place] [address] [phone] Brit Gonzáles MD 619 [place] [address] documented as of this encounter Goals Goal [...] CDT) 05/02/2024 12:0 3 PM CDT Narrative [facility] - 05/02/2024 8:22 PM CDT ? [facility] ?[address] [facility] [address] [place], [place] ??[address] ? Test Date: ?2024-05-02 Pat Name: ? OBIE SIMS ?Department: ?? 3 ? Room: ? Gender: ? Male ? Numerical Control Router Operator: ?? : ?1955 ? Requested By: MAREN MATA Order Number: [id number] ? Reading : ?? Karolina Parekh ? Measurements Intervals ?Sacul ? Rate: ? 68 ? P: ? SD: ? 0 ?QRS: ?-45 QRSD: ? 149 ?T: ?106 QT: ? 450 ? QTc: ?479 ? Interpretive Statements ATRIAL FIBRILLATION LEFT AXIS DEVIATION ??[QRS AXIS < -30] INTRAVENTRICULAR CONDUCTION DELAY ??[130+ ms QRS DURATION] Procedure Note Karolina Parekh MD - 05/02/[address] [place] [id number] Test Date: 2024-05-02 Pat Name: OBIE SIMS Department: 3 Room: Gender: Male Numerical Control Router Operator: : 1955 Requested By: MAREN Burnham Number: [id number] Reading MD: Martin Measurements Intervals Sacul Rate: 68 P: SD: 0 QRS: -45 QRSD: 149 T: 106 QT: 450 QTc: 479 Interpretive Statements ATRIAL FIBRILLATION LEFT AXIS DEVIATION [QRS AXIS < -30] INTRAVENTRICULAR CONDUCTION DELAY [130+ ms QRS DURATION] us Maren Mata CAR RENTAL AGENT ECG ORDERABLES Final Result [facility] documented in this encounter Visit Diagnoses Diagnosis Adverse effect of antibiotic Unspecified antibiotic causing adverse effect in therapeutic use documented in this encounter Additional Health Concerns Assessment Noted Time PHQ-9 Depression Total Score: 0 12/02/19 22 1:18 PM CDT documented as of this encounter Care Teams Seismographer Relationship Specialty Start Date End Date Megan Infante MD [address] [place] [phone] PCP - General FAMILY PRACTICE 04/06/16 Zaki Ortiz MD [address] [facility] [place] [phone] Consulting Physician PULMONARY DISEASE 07/12/19 Romeo-Concetta Pond MD [address] [place] [address] Surgeon NEUROLOGICAL SURGERY 12/16/22 Jeff Grace MD [address] [place] [address] Consulting Physician INTERNAL MEDICINE 02/11/23 Brit Gonzáles MD [address] [place] [address] Consulting Physician CARDIOVASCULAR DISEASE 12/29/23 documented as of this encounter
--- OUTSIDE RECORDS SUMMARY | 2024-09-03 20:35 | XMS_ITS | Encounter Summary ---
Author Organization [facility] Address [facility]6 [place] [address] [place] [address] Care Team Providers Care Research Associate Molecular Biology Name Role Phone Megan Infante MD Primary Care Provider [phone] Zaki Ortiz MD Unavailable [phone] Concetta Acevedo MD Unavailable + [phone] Jeff Grace MD Unavailable Brit Gonzáles MD Unavailable Encounter Details Date Type Department Care Team (Latest Contact Info) Description 07/31/2024 Travel Social History Tobacco Use Types Packs/Day Years Used Date Smoking Tobacco: Former Passive Smoke Exposure: Past Smokeless Tobacco: Former Chew Alcohol Use Standard Drinks/Week Comments Yes 0 (1 standard drink = 0.6 oz pur e alcohol) 4 beers per week [facility] Utilities Answer Date Recorded In the past 12 months has [facility] [employer], gas, oil, or water [employer] threatened to shut off services in [...] How often do you attend hindu or latter day serv ices? Patient declined [...] [facility] of Occupat ional Health - Occupational [...] a penitentiary (including now)? Patient declined 07/12/2023 Housing Stability [...] any time in the past 12 m [facility], were you homeless or living in a penitentiary (including now)? No 07/31/2024 Sex and Gender [...] Assessment Author Status No 07/31/2024 5:50 PM HUMAN RESOURCES SERVICES SPECIALIST Abril Contreras RN Active * Do you [...] or making decisions? Yes 07/31/2024 5:50 PM HUMAN RESOURCES SERVICES SPECIALIST Abril Contreras RN A ctive * Because of a physical, mental, or emotional condition, do you have serious difficulty concentrating, remembering, or making decisions? Answer Entry Date Author Status Yes 07/31/2024 5:50 PM Abril Prather RN Active documented in this encounter Plan of Treatment Upcoming Encounters Date Type Department Care Team (Late st Contact Info) Description 09/25/2024 2:00 PM HUMAN RESOURCES SERVICES SPECIALIST Appointment [facility] [address] [place] [address] Zayra Powell, ACCOUNT CONSULTANT [address] [place] [address] 10/16/2024 3:30 PM HUMAN RESOURCES SERVICES SPECIALIST Office Visit [facility] [address] [place] [phone] Brit Gonzáles MD 619 [place] [address] documented as of this encounter Goals Goal [...] as of this encounter Care Teams Research Associate Molecular Biology Relationship Specialty Start Date End Date Megan Infante MD [address] [place] [phone] PCP - General FAMILY PRACTICE 04/06/16 Zaki Ortiz MD [address] [place] [phone] Consulting Physician PULMONARY DISEASE 07/12/19 Concetta Acevedo MD [address] [place] [address] Surgeon NEUROLOGICAL SURGERY 12/16/22 Jeff Grace MD [address] [place] [address] Consulting Physician INTERNAL MEDICINE 02/11/23 Brit Gonzáles MD [address] [place] [address] [phone] Consulting Physician CARDIOVASCULAR DISEASE 12/29/23 documented as of this encounter
--- OUTSIDE RECORDS SUMMARY | 2024-09-03 20:35 | XMS_ITS | Encounter Summary ---
Author Organization [facility] Address [facility] access hospital6 [facility] [place] [address] [place] [address] Care Team Providers Care Ticket Maker Name Role Phone Megan Infante MD Primary Care Provider [phone] Zaki Ortiz MD Unavailable [phone] Concetta Acevedo MD Unavailable + [phone] Jeff Grace MD Unavailable Brit Gonzáles MD Unavailable Encounter Details Date Type Department Care Team (Late st Contact Info) Description 05/09/2024 12:50 PM CDT - 05/09/2024 1:37 PM CDT Hospital Encounter [facility] [address] [place] [address] Zayra Powell, [facility] [address] [place] [address] Discharge Disposition: Home or Self Care (Routine Discharge) Social History Tobacco Use Types Packs/Day Years Used Date Smoking Tobacco: Former Passive Smoke Exposure: Past Smokeless Tobacco: Former Chew Alcohol Use Standard Drinks/Week Comments Yes 0 (1 standard drink = 0.6 oz pur e alcohol) 4 beers per week [facility] Utilities Answer Date Recorded In the past 12 months has e electric, gas, oil, or water [employer] threatened to shut off services in your [...] declined 02/16/2023 How often do you attend restorationist or zoroastrianism serv ices? Patient declined 02/16/2023 Do you belong to any clubs o r organizations such as restorationist groups, unions, fraternal or athletic groups, or [...] 0 12/01/2021 [facility] Health - Occupational Stress Questionnaire Answer [...] Contact Info) Description 09/25/2024 2:00 PM LICENSED HOME INSPECTOR Appointment [facility] [address] [place] [address] Zayra Powell, BUFFING WHEEL FORMER AUTOMATIC [address] [place] [address] 10/16/2024 3:30 PM LICENSED HOME INSPECTOR Office Visit [facility] [address] [place] [address] Brit Gonzáles MD 619 [place] [address] documented as of this encounter Goals Goal Patient Goal Type Associated Problems Recent Progress Patient-Stated? Author Family - family caregiver with be involved in care transitions and discharge planning Lifestyle No Karen Quezada RN documented as of this encounter Results * (ABNORMAL) BASIC METABOLIC PANEL (05/09/2024 1:46 PM CDT) SODIUM S/P/B 137 136 - 145 MMOL/L 05/09/2024 2:30 PM CD[address] [facility] POTASSIUM S/P/B 4.8 3.5 - 5.1 MMOL/L 05/09/2024 2:[address] [facility] CHLORIDE S/P/B 101 98 - 107 MMOL/L 05/09/2024 2:30 PM CDT [facility] CO2 24.3 21.0 - 32.0 MMOL/L 05/09/2024 2:30 PM CDT [facility] GLUCOSE 97 70 - 99 MG/DL 05/09/2024 2:30 PM CD[address] [facility] Comment: FASTING GLUCOSE 100 TO 125 MG/DL IS CONSISTENT WITH IMPAIRED FASTING GLUCOSE. FASTING GLUCOSE >125 MG/DL IS CONSISTENT WITH DIABETES. RANDOM GLUCOSE >200 MG/DL WITH HYPERGLYCEMIC SYMPTOMS IS CONSISTENT WITH DIABETES. PER ADA GUIDELINES BUN 56(H) 6 - 24 MG/DL 05/09/2024 2:30 PM CD[address] [facility] CREATININE S/P/B 2.16(H) 0.70 - 1.30 MG/DL 05/09/2024 2:30 PM CD[address] [facility] CALCIUM S/P/B 9.0 8.4 - 10.5 MG/DL 05/09/2024 2:30 PM CDT [facility] ANION GAP 11.7 5.0 - 15.0 MMOL/L 05/09/2024 2:30 PM CD[address] [facility] OSMOLALITY (CALC) 299 MOSM/KG 024 2:30 PM CDT [facility] Comment:REFERENCE RANGE NOT ESTABLISHED GFR ESTIMATE 32(L) >89 ML/MIN/1. 73 M2 05/09/2024 2:30 PM [address] [facility] GFR NOTES GFR REFERENCE S: 05/09/2024 2:30 PM CD[address] [facility] Comment: THE ESTIMATED GFR IS [...] m2 05/09/2024 1:46 PM CDT Zayra Powell [facility] Final Result [facility] [address] [place] [address], documented in this encounter Visit Diagnoses Diagnosis Elevated serum creatinine- Primary Other nonspecific findings on examination of blood Non-pressure chronic ulcer of left calf limited to breakdown of skin ([facility]/HCC HHS/HCC) 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 breakdown of skin ([facility]/HCC HHS/HCC) documented in this encounter Administered Medications Inactive Administered Medications - up to 3 most recent administrations Medication Order MAR Action Action Date Dose Rate Site lidocaine 2 % URO-JET jelly Topical, Once, 1 dose, On Wed05/09/24 at 1330Indications: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),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 breakdown of skin ([facility]/HCC HHS/HCC) Given 05/09/2024 1:10 PM CDT documented in this encounter Additional Health Concerns Assessment Noted Time PHQ-9 Depression Total Score: 0 12/02/19 22 1:18 PM CDT documented as of this encounter Care Teams Ticket Maker Relationship Specialty Start Date End Date Megan Infante MD [address] [place] [address] PCP - General FAMILY PRACTICE 04/06/16 Zaki Ortiz MD [address] [place] [address] Consulting Physician PULMONARY DISEASE 07/12/19 Concetta Acevedo MD [address] [place] [address] Surgeon NEUROLOGICAL SURGERY 12/16/22 Jeff Grace MD [address] [place] [address] Consulting Physician INTERNAL MEDICINE 02/11/23 Brit Gonzáles MD [address] [place], [place] [address] Consulting Physician CARDIOVASCULAR DISEASE 12/29/23 documented as of this encounter
--- OUTSIDE RECORDS SUMMARY | 2024-09-03 20:35 | XMS_ITS | Encounter Summary ---
Author Organization [facility] Address [facility] [place] [address] [place] [address] Care Team Providers Care Deputy Insurance Commissioner Name Role Phone Megan Infante MD Primary Care Provider [phone] Zaki Ortiz MD Unavailable [phone] Concetta Acevedo MD Unavailable + [phone] Jeff Grace MD Unavailable Brit Gonzáles MD Unavailable Encounter Details Date Type Department Care Team (Late st Contact Info) Description 05/22/2024 1:50 PM CDT - 05/22/2024 11:59 PM CDT Hospital Encounter [facility] [address] [place] [address] Zayra Powell, [facility] [address] [place] [address] Discharge Disposition: Home or Self Care (Routine Discharge) Social History Tobacco Use Types Packs/Day Years Used Date Smoking Tobacco: Former Passive Smoke Exposure: Past Smokeless Tobacco: Former Chew Alcohol Use Standard Drinks/Week Comments Yes 0 (1 standard drink = 0.6 oz pur e alcohol) 4 beers per week [facility] Utilities Answer Date Recorded In the past 12 months has e electric, gas, oil, or water [employer] threatened to shut off services in your [...] How often do you attend uatsdin or restoration serv ices? Patient declined 02/16/2023 Do you [...] move on to questions 3-9 0 12/01/2021 [facility] - Occupational Stress Questionnaire [...] st Contact Info) Description 09/25/2024 2:00 PM FLAT SHEET MAKER Appointment [facility] [address] [place] [address] Zayra Powell, DEVELOPMENT REP [address] [place] [place] [address] 10/16/2024 3:30 PM FLAT SHEET MAKER Office Visit [facility] [address] [place] [address] [address] Brit Gonzáles MD [address] [place] [address] documented as of this encounter Goals Goal [...] documented as of this encounter Care Teams Deputy Insurance Commissioner Relationship Specialty Start Date End Date Megan Infante MD [address] [place] [phone] PCP - General FAMILY PRACTICE 04/06/16 Zaki Ortiz MD [address] [place] [phone] Consulting Physician PULMONARY DISEASE 07/12/19 Romeo-Concetta Pond MD [address] [place] [address] Surgeon NEUROLOGICAL SURGERY 12/16/22 Jeff Grace MD [address] [place] [phone] Consulting Physician INTERNAL MEDICINE 02/11/23 Brit Gonzáles MD [address] [place] [address] Consulting Physician CARDIOVASCULAR DISEASE 12/29/23 documented as of this encounter
--- OUTSIDE RECORDS SUMMARY | 2024-09-03 20:36 | XMS_ITS | Encounter Summary ---
Author Organization [facility] Address [facility] [place] [address] [place] [address] Care Team Providers Care Foreign Broadcast Specialist Name Role Phone Megan Infante MD Primary Care Provider [phone] Zaki Ortiz MD Unavailable [phone] Concetta Acevedo MD Unavailable + [phone] Jeff Grace MD Unavailable Brit Gonzáles MD Unavailable Encounter Details Date Type Department Care Team (Latest Contact Info) Description 04/11/2024 Travel Social History Tobacco Use Types Packs/Day Years Used Date Smoking Tobacco: Former Smokeless Tobacco: Former Chew Alcohol Use Standard Drinks/Week Comments Yes 0 (1 standard drink = 0.6 oz pur e alcohol) 4 beers per week [facility] Utilities Answer Date Recorded In the past 12 months has [facility] [employer], oil, or water [employer] threatened to shut off services in your [...] How often do you attend muslim or baptist serv ices? Patient declined 02/16/2023 [...] Date Author Status No 07/12/2023 6:58 PM REGISTRAR MUSEUM Liliana Gutierrez RN Active documented in this encounter Plan of Treatment Upcoming Encounters Date Type Department Care Team (Late st Contact Info) Description 09/25/2024 2:00 PM REGISTRAR MUSEUM Appointment [facility] [address] [place] [address] Zayra Powell, SIGNALING PROJECT ENGINEER [address] [place] [address] 10/16/2024 3:30 PM REGISTRAR MUSEUM Office Visit [facility] [address] [place] [address] Brit Gonzáles MD 6[address] [place] [address] documented as of this encounter [...] documented as of this encounter Care Teams Foreign Broadcast Specialist Relationship Specialty Start Date End Date Megan Infante MD [address] [place] [address] PCP - General FAMILY PRACTICE 04/06/16 Zaki Ortiz MD [address] [place] [phone] Consulting Physician PULMONARY DISEASE 07/12/19 Concetta Acevedo MD [address] [place] [address] Surgeon NEUROLOGICAL SURGERY 12/16/22 Jeff Grace MD [address]19 [place] [address] Consulting Physician INTERNAL MEDICINE 02/11/23 Brit Gonzáles MD [address] [place] [address] Consulting Physician CARDIOVASCULAR DISEASE 12/29/23 documented as of this encounter
--- OUTSIDE RECORDS SUMMARY | 2024-09-03 20:36 | XMS_ITS | Encounter Summary ---
Author Organization [facility] Address [facility]6 [facility]. [place], [place] [address] [place] [address] Care Team Providers Care Train Planner Name Role Phone Megan Infante MD Primary Care Provider [phone] Sharmila Davis APRN, NP-C Unavailable [phone] Zaki Ortiz MD Unavailable [phone] Concetta Acevedo MD Unavailable [phone] Jeff Grace MD Unavailable Brit Gonzáles MD Unavailable Reason for Referral * Imaging (Routine) - Closed Specialty Diagnoses / Procedures Referred By Yung sequeira Referred To Contact RADIOLOGY Diagnoses Dyspnea on exertion Procedures USE ECHOCARDIOGRAM Brit Gonzáles MD [address] [place] [address] Phone: tel: fax: Referral ID Status Reason Start Date Expiration Date Visits Re quested Visits Authorized [id number] Closed 01/31/2024 01/30/2025 1 1 * Imaging (Routine) - Closed Specialty Diagnoses / Procedures Referred By Yung sequeira Referred To Contact RADIOLOGY Diagnoses Dyspnea on exertion Procedures NM PHARM NUC STRESS TEST 1DBrit Hudson MD [address] [place] [address] Phone: tel: fax: Referral ID Status Reason Start Date Expiration Date Visits Re quested Visits Authorized [id number] Closed 01/31/2024 03/02/2025 4 4 Reason for Visit * Imaging (Routine) - Closed Specialty Diagnoses / Procedures Referred By Contac t Referred To Contact RADIOLOGY Diagnoses Dyspnea on exertion Procedures NM PHARM NUC STRESS TEST 1DAY Brit Gonzáles MD [address] [place] [address] Phone: tel: fax: Referral ID Status Reason Start Date Expiration Date Visits Re quested Visits Authorized [id number] Closed 01/31/2024 03/02/2025 4 4 Encounter Details Date Type Department Care Team (Latest Contact Info) Description 03/15/2024 7:45 AM CDT - 03/15/2024 7:46 AM CDT Hospital Encounter [facility] [address] [place] [address] [place] [address] Brit Gonzáles MD [address] [place] [address] Discharge Disposition: Home or Self Care (Routine Discharge) Social History Tobacco Use Types Packs/Day Years Used Date Smoking Tobacco: Former Smokeless Tobacco: Former Chew Alcohol Use Standard Drinks/Week Comments Yes 0 (1 standard drink = 0.6 oz pur e alcohol) 4 beers per week [facility] Utilities Answer Date Recorded In the past 12 months has [facility], [employer], oil, or water [employer] threatened to shut off services in your [...] How often do you attend gnosticist or mosque serv ices? Patient declined 02/16/2023 Do you belong to any clubs o r organizations such as gnosticist groups, unions, [employer] or athletic groups, or school groups? Patient [...] mouth daily with breakfast. 30 tablet 02/09/2023 hydrOXYzine (ATARAX) 50 MG tablet Take 1 tablet (50 mg total) by mouth 3 (three) times daily. As needed 10/09/2022 JARDIANCE 25 MG tablet Take 1 tablet (25 mg total) by mouth daily. 10/31/2022 pantoprazole EC 40 MG tablet Take 1 tablet (40 mg total) by mouth daily. sacubitril-valsarta n (ENTRESTO) 24-26 MG tabletIndications:C hronic [...] 1 puff into the lungs daily. 12/23/2022 aspirin 81 MG chewable tablet Chew 1 tablet (81 mg total) by mouth daily. 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 One garment each leg 2 Package 08/17/2023 4 cyclobenzaprine (FLEXERIL) 10 MG tablet Take 1 tablet (10 mg total) by mouth 3 (three) times daily as needed for Muscle Spasms. 4 ferrous sulfate, 65 mg elemental, 325 (65 FE) MG tablet Take 1 tablet (325 mg total) by mouth daily with breakfast. 4 gabapentin (NEURONTIN) 400 MG capsule Take 1 capsule (400 mg total) by mouth 2 (two) times daily. 90 capsule 07/16/2023 4 HYDROcodone-acetami nophen (NORCO) 10-325 MG tabletIndications:A cute Pain < 7 Day Supply Take 1 tablet by mouth every 6 (six) hours as needed. Indications: Acute Pain < 7 Day Supply 15 tablet 07/16/2023 5 insulin detemir (LEVEMIR FLEXPEN) 100 UNIT/ML PEN Inject 15 Units into the skin nightly at bedtime. 9 mL 02/09/2023 4 levoFLOXacin (LEVAQUIN) 500 MG tabletIndications:P seudomonas infection Take 1 tablet (500 mg total) by mouth daily for 14 days. 14 tablet 03/09/2024 4 metFORMIN (GLUCOPHAGE) 500 MG tablet Take 1 tablet (500 mg total) by mouth 2 (two) times daily with meals. 4 potassium chloride CR (KLOR-CON M) 20 MEQ tablet Take 1 tablet (20 mEq total) by mouth 2 (two) times daily. 4 rOPINIRole (REQUIP) 4 MG tablet Take 1 tablet (4 mg total) by mouth nightly at bedtime. 10/17/2022 4 spironolactone (ALDACTONE) 25 MG tablet Take 1 tablet (25 mg total) by mouth daily. 30 tablet 07/16/2023 4 tiZANidine (ZANAFLEX) 4 MG tablet Take 1 tablet (4 mg total) by mouth 3 (three) times daily as needed. 4 triamcinolone (KENALOG) 0.1 % cream Apply topically [...] st Contact Info) Description 09/25/2024 2:00 PM GENETICS NURSE Appointment [facility] [address] [facility] [place] [address] Zayra Powell, RIVET HAMMER MACHINE OPERATOR [address] [facility] [place] [address] 10/16/2024 3:30 PM GENETICS NURSE Office Visit [facility] [address] [place] [address] Brit Gonzáles MD [address] [place] [address] documented as of this encounter Goals Goal [...] CDT ?Echocardiography Report Pat.Name: ??Mendez Lay ?Pat.ID: ?[id number] ? St.Date: ?? 03/15/2024 ? Refer.MD: ??[facility] Exam Time: 10:29:00 AM ? Study Type:OUTREACH ? Height: ?66 in ? Weight: ?220 lb ? BSA: ? 2.08 m2 ?Age: ??1955,68Y ? Sex: ? M ? Sonogrphr: Am ? Pat. Stat.:Outpatient ? Reason for Study:Dyspnea on exertion Procedures: Study performed at [place], [place] and interpreted by [facility]. 2D, M-mode, Doppler, Color Flow, [...] 03/17/2024 Echocardiography Report Pat.Name: Mendez Lay Dariana.ID: [id number] .Date: 03/15/2024 Refer.MD: Marco A, [facility] Exam Time: 10:29:00 AM Study Type:[facility] Height: 66 in Weight: 220 lb BSA: 2.08 m2 Age: 11 1955,68Y Sex: M Sonogrphr: Am Pat. Stat.:Outpatient Reason for Study:Dyspnea on exertion Procedures: Study performed at [place], [place] and interpreted by [facility]. [...] PERFUSION SCAN ? Pat.Name: ??Mendez Lay ?Pat.ID: ?[id number] ? St.Date: ?? 03/15/2024 ? Refer.MD: ??[facility] Exam Time: 8:40:00 AM ?Study Type:[place] OUTREACH ? Height: ?66 in ? Weight: ?222 lb ? BSA: ? 2.09 m2 ?Age: ??1955,68Y ? Sex: ? M ? Sonogrphr: Terrance Prabhakar, AGRICULTURAL EQUIPMENT OPERATOR ? Pat. Stat.:Outpatient ? Reason for Study:Dyspnea on exertion Procedures: Study performed at [place], [place] and interpreted by [facility]. Regadenoson Stress, Stress Gated SPECT, [...] MYOCARDIAL PERFUSION SCAN Pat.Name: Mendez Lay Pat.ID: [id number] .Date: 03/15/2024 Refer.MD: Marco A, [facility] Exam Time: 8:40:00 AM Study Type:[facility] Height: 66 in Weight: 222 lb BSA: 2.09 m2 Age: 11 1955,68Y Sex: M Sonogrphr: PARIS Sims Pat. Stat.:Outpatient Reason for Study:Dyspnea on exertion Procedures: Study performed at [place], [place] and interpreted by [facility]. Regadenoson Stress, Stress Gated SPECT, [...] AM Brit Gonzáles M.D. Brit Gonzáles MD [facility] Final Result documented in this encounter [...] documented as of this encounter Care Teams Train Planner Relationship Specialty Start Date End Date Megan Infante MD [address] [facility] [place] [phone] PCP - General FAMILY PRACTICE 04/06/16 Sharmila Davis APRN, WOOD HEEL FINISHER-C [address] [facility] [address] [place] [address] NURSE PRACTITIONER 01/04/17 04/03/24 Zaki Ortiz MD [address] [facility] [address] [place] [address] Consulting Physician PULMONARY DISEASE 07/12/19 Concetta Acevedo MD [address] [place] [address] Surgeon NEUROLOGICAL SURGERY 12/16/22 Jeff Grace MD [address] [place] [address] Consulting Physician INTERNAL MEDICINE 02/11/23 Brit Gonzáles MD [address] [place], [place] [address] Consulting Physician CARDIOVASCULAR DISEASE 12/29/23 documented as of this encounter
--- OUTSIDE RECORDS SUMMARY | 2024-09-03 20:36 | XMS_ITS | Encounter Summary ---
Author Organization [facility] Address [facility]6 [facility] [place] [address] [place] [address] Care Team Providers Care Transportation Project Manager Name Role Phone Megan Infante MD Primary Care Provider [phone] Sharmila Davis APRN, NP-C Unavailable Zaki Ortiz MD Unavailable [phone] Concetta Acevedo MD Unavailable + [phone] Jeff Grace MD Unavailable Brit Gonzáles MD Unavailable Reason for Visit * Reason Onset Date Comments Appointment Reminder 03/31/2024 Encounter Details Date Type Department Care Team (Late st Contact Info) Description 03/31/2024 Telephone [facility] [address] [place] [address] Brit Gonzáles MD [address] [place] [address] Appointment Reminder Social History Tobacco Use Types Packs/Day Years Used Date Smoking Tobacco: Former Smokeless Tobacco: Former Chew Alcohol Use Standard Drinks/Week Comments Yes 0 (1 standard drink = 0.6 oz pur e alcohol) 4 beers per week [facility] Utilities [...] How often do you attend mandaeism or uatsdin serv ices? Patient declined 02/16/2023 Do you [...] move on to questions 3-9 0 12/01/2021 [facility] of Occupat ional Health - Occupational Stress [...] of appt Wednesday with Dr. Gonzáles in [place]. Asked patient to return call if needing to cancel or r/s. documented in this encounter Plan of Treatment Upcoming Encounters Date Type Department Care Team (Late st Contact Info) Description 09/25/2024 2:00 PM SAVINGS TELLER Appointment [facility] [address] [place] [address] Zayra Powell, [facility] [address] [place] [address] 10/16/2024 3:30 PM SAVINGS TELLER Office Visit [facility] [address] [place] [phone] Brit Gonzáles MD [address] [place] [address] documented as of this encounter Goals Goal [...] as of this encounter Care Teams Transportation Project Manager Relationship Specialty Start Date End Date Megan Infante MD [address] [facility] [place] [phone] PCP - General FAMILY PRACTICE 04/06/16 Sharmila Davis, FOUNDATION DIGGER, SALES LEAD GENERATOR-C [address] [place] [address] NURSE PRACTITIONER 01/04/17 04/03/24 Zaki Ortiz MD [address] [place] [address] Consulting Physician PULMONARY DISEASE 07/12/19 Concetta Acevedo MD [address] [place] [address] Surgeon NEUROLOGICAL SURGERY 12/16/22 Jeff Grace MD [address] [place] [address] Consulting Physician INTERNAL MEDICINE 02/11/23 Brit Gonzáles MD [address] [place] [phone] Consulting Physician CARDIOVASCULAR DISEASE 12/29/23 documented as of this encounter
--- OUTSIDE RECORDS SUMMARY | 2024-09-03 20:36 | XMS_ITS | Encounter Summary ---
Author Organization [facility] Address [facility]6 [facility] [place] [address] [place] [address] Care Team Providers Care Power Generation Technician Name Role Phone Megan Infante MD Primary Care Provider [phone] Zaki Ortiz MD Unavailable [phone] Concetta Acevedo MD Unavailable + [phone] Jeff Grace MD Unavailable Brit Gonzáles MD Unavailable Encounter Details Date Type Department Care Team (Late st Contact Info) Description 04/25/2024 11:30 AM CDT - 04/25/2024 11:59 PM CDT Hospital Encounter [facility] [address] [place] [address] Maren Mata, [facility] [address] [place] [address] Discharge Disposition: Home or Self Care (Routine Discharge) Social History Tobacco Use Types Packs/Day Years Used Date Smoking Tobacco: Former Passive Smoke Exposure: Past Smokeless Tobacco: Former Chew Alcohol Use Standard Drinks/Week Comments Yes 0 (1 standard drink = 0.6 oz pur e alcohol) 4 beers per week [facility] Utilities Answer Date Recorded In the past 12 months has e electric, gas, oil, or water [employer] threatened to shut off services in your [...] declined 02/16/2023 How often do you attend buddhism or hindu serv ices? Patient declined 02/16/2023 Do you belong to any clubs o r organizations such as buddhism groups, unions, fraternal or athletic groups, or [...] move on to questions 3-9 0 12/01/2021 [facility] - Occupational Stress Questionnaire [...] Assessment Author Status No 07/12/2023 6:58 PM Liliaan Layne RN Active documented as of this [...] st Contact Info) Description 09/25/2024 2:00 PM MILLSTONE CLEANER Appointment [facility] [address] [facility] [place] [address] Maren Mata FNP [address] [place] [address] 10/16/2024 3:30 PM MILLSTONE CLEANER Office Visit [facility] [address] [place] [address] Brit Gonzáles MD [address] [place] [address] documented as of this encounter Goals Goal [...] CDT) 05/02/2024 12:0 3 PM CDT Narrative [facility] [place] [facility] - 05/02/2024 8:22 PM CDT ? [facility] ?[address] [place], [place] ??[address] ? Test Date: ?2024-05-02 Pat Name: ? OBIE SIMS ?Department: ?? 3 ? Room: ? Gender: ? Male ? External Grinder: ?? : ?1955 ? Requested By: MAREN MATA Order Number: [id number] ? Reading MD: ?? Karolina Parekh ? Measurements Intervals ?[place] ? Rate: ? 68 ? P: ? [place]: ? 0 ?QRS: ?-45 QRSD: ? 149 ?T: ?106 QT: ? 450 ? QTc: ?479 ? Interpretive Statements ATRIAL FIBRILLATION LEFT AXIS DEVIATION ??[QRS AXIS < -30] INTRAVENTRICULAR CONDUCTION DELAY ??[130+ ms QRS DURATION] Procedure Note Karolina Parekh MD - 05/02/[address] [place] [address] Test Date: 2024-05-02 Pat Name: OBIE SIMS Department: 3 Room: Gender: Male External Grinder: : 1955 Requested By: MAREN MATA Order Number: [id number] Sage MD: Martin Measurements Intervals [place] Rate: 68 P: [place]: 0 QRS: -45 QRSD: 149 T: 106 QT: 450 QTc: 479 Interpretive Statements ATRIAL FIBRILLATION LEFT AXIS DEVIATION [QRS AXIS < -30] INTRAVENTRICULAR CONDUCTION DELAY [130+ ms QRS DURATION] Maren Mata LOOM MECHANIC ECG ORDERABLES Final Result [facility] * CULTURE, WOUND, W/GRAM STAIN (04/25/2024 12:01 PM CDT) SPEC DESCRIPTION LEG,LEFT 04/25/2024 3:28 PM CDT [facility] SPECIAL REQUESTS NO SPECIAL REQUEST 04/25/2024 3:28 PM CDT [facility] GRAM STAIN RESULT NO ORGANISMS SEEN 04/25/2024 4:03 PM CDT [facility] CULTURE RESULT MODERATE ENTEROCOCCUS FAECALIS 04/27/2024 9:55 AM CDT [facility] CULTURE RESULT FEW PSEUDOMONAS AERUGINOSA 04/27/2024 9:55 AM CDT [facility] STRUCTURE OF LEFT LOWER LIMB / [...] MICROBIOLOGY - GENERAL ORDERAB LES Final Result [facility] [address] [place] [address], [place] [phone] [id number] [facility] [address] [place] [address], [place] [phone] documented in this encounter Visit Diagnoses Diagnosis Non-pressure chronic ulcer of left calf limited to breakdown of skin ([facility]/HCC)- Primary 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 breakdown of skin ([facility]/HCC) Pseudomonas infection Pseudomonas infection in conditions [...] left calf limited to breakdown of skin ([facility]/HCC),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 breakdown of skin ([facility] H[facility]/HCC) Given 04/25/2024 11:30 AM CDT documented in this encounter Additional Health Concerns Assessment Noted Time PHQ-9 Depression Total Score: 0 12/02/19 22 1:18 PM CDT documented as of this encounter Care Teams Power Generation Technician Relationship Specialty Start Date End Date Megan Infante MD [address] [place] [phone] PCP - General FAMILY PRACTICE 04/06/16 Zaki Ortiz MD [address] [place] [phone] Consulting Physician PULMONARY DISEASE 07/12/19 Concetta Acevedo MD [address] [place] [address] Surgeon NEUROLOGICAL SURGERY 12/16/22 Jeff Grace MD [address] [place] [address] Consulting Physician INTERNAL MEDICINE 02/11/23 Brit Gonzáles MD [address] [place] [address] [place] [address] Consulting Physician CARDIOVASCULAR DISEASE 12/29/23 documented as of this encounter
--- OUTSIDE RECORDS SUMMARY | 2024-09-03 20:36 | XMS_ITS | Encounter Summary ---
Author Organization [facility] Address [facility] [address] [place] [address] Care Team Providers Care Auditor Appraiser Name Role Phone Megan Infante MD Primary Care Provider [phone] Sharmila Davis APRN, NP-C Unavailable [phone] Zaki Ortiz MD Unavailable [phone] Concetta Acevedo MD Unavailable + [phone] Jeff Grace MD Unavailable Brit Gonzáles MD Unavailable Encounter Details Date Type Department Care Team (Latest Contact Info) Description 03/15/2024 Travel Social History Tobacco Use Types Packs/Day Years Used Date Smoking Tobacco: Former Smokeless Tobacco: Former Chew Alcohol Use Standard Drinks/Week Comments Yes 0 (1 standard drink = 0.6 oz pur e alcohol) 4 beers per week [facility] Utilities Answer Date Recorded In the past 12 months has [facility], [employer], oil, or water [employer] threatened to shut off services in your [...] How often do you attend advent or anabaptist serv ices? Patient declined 02/16/2023 [...] Date Author Status No 07/12/2023 6:58 PM MANAGER UTILIZATION MANAGEMENT Liliana Gutierrez, YUNI Active documented in this encounter Plan of Treatment Upcoming Encounters Date Type Department Care Team (Late st Contact Info) Description 09/25/2024 2:00 PM MANAGER UTILIZATION MANAGEMENT Appointment [facility] [address] [place] [address] Zayra Powell, DIRECTOR VACCINE [address] [facility] [place] [place] [address] 10/16/2024 3:30 PM MANAGER UTILIZATION MANAGEMENT Office Visit [facility] [address] [facility] [place] [address] Brit Gonzáles MD [address] [place] [address] documented as of this encounter Goals [...] documented as of this encounter Care Teams Auditor Appraiser Relationship Specialty Start Date End Date Megan Infante MD [address] [facility] [place] [place] [address] PCP - General FAMILY PRACTICE 04/06/16 Sharmila Davis APRN, CASUAL SHOE INSPECTOR-C [address] [place] [address] NURSE PRACTITIONER 01/04/17 04/03/24 Zaki Ortiz MD [address] [place] [phone] Consulting Physician PULMONARY DISEASE 07/12/19 Concetta Acevedo MD [address] [place] [address] Surgeon NEUROLOGICAL SURGERY 12/16/22 Jeff Grace MD [address] [place] [address] Consulting Physician INTERNAL MEDICINE 02/11/23 Brit Gonzáles MD [address] [place], [place] [address] Consulting Physician CARDIOVASCULAR DISEASE 12/29/23 documented as of this encounter
--- OUTSIDE RECORDS SUMMARY | 2024-09-03 20:36 | XMS_ITS | Encounter Summary ---
Author Organization [facility] Address [facility] [place] [address] [place] [address] Care Team Providers Care Arc Welding Machine Operator Name Role Phone Megan Infante MD Primary Care Provider [phone] Sharmila Davis APRN, NP-C Unavailable [phone] Zaki Ortiz MD Unavailable [phone] Concetta Acevedo MD Unavailable + [phone] Jeff Grace MD Unavailable Brit Gonzáles MD Unavailable Encounter Details Date Type Department Care Team (Latest Contact Info) Description 01/31/2024 Travel Social History Tobacco Use Types Packs/Day Years Used Date Smoking Tobacco: Former Smokeless Tobacco: Former Chew Alcohol Use Standard Drinks/Week Comments Yes 0 (1 standard drink = 0.6 oz pur e alcohol) 4 beers per week [facility] Utilities Answer Date Recorded In the past 12 months has [employer], [employer] oil, or water [employer] threatened to shut off services in your [...] How often do you attend faith or hinduism serv ices? Patient declined 02/16/2023 Do you [...] 6:58 PM Liliana Lanye RN Active * Do you have serious [...] Date Author Status No 07/12/2023 6:58 PM DERMATOLOGIST AND DERMATOPATHOLOGIST Liliana Gutierrez, YUNI Active documented in this encounter Plan of Treatment Upcoming Encounters Date Type Department Care Team (Late st Contact Info) Description 09/25/2024 2:00 PM DERMATOLOGIST AND DERMATOPATHOLOGIST Appointment [facility] [address] [place] [place] [address] Zayra Powell, COATER SMOKING PIPE [address] [facility] [place] [address] 10/16/2024 3:30 PM DERMATOLOGIST AND DERMATOPATHOLOGIST Office Visit [facility] [address] [facility] [place] [address] Brit Gonzáles MD [address] [place] [address] documented as of this encounter Goals [...] documented as of this encounter Care Teams Arc Welding Machine Operator Relationship Specialty Start Date End Date Megan Infante MD [address] [facility] [place] [address] PCP - General FAMILY PRACTICE 04/06/16 Sharmila Davis APRN, VOCATIONAL TRAINING DIRECTOR-C [address] [place] [address] NURSE PRACTITIONER 01/04/17 04/03/24 Zaki Ortiz MD [address] [place] [phone] Consulting Physician PULMONARY DISEASE 07/12/19 Concetta Acevedo MD [address] [place] [address] Surgeon NEUROLOGICAL SURGERY 12/16/22 Jeff Grace MD [address] [place] [address] Consulting Physician INTERNAL MEDICINE 02/11/23 Brit Gonzáles MD [address] [place], [place] [address] Consulting Physician CARDIOVASCULAR DISEASE 12/29/23 documented as of this encounter
--- OUTSIDE RECORDS SUMMARY | 2024-09-03 20:36 | XMS_ITS | Encounter Summary ---
Author Organization [facility] Address [facility] [place] [address] [place] [address] Care Team Providers Care Structural Steel Worker Name Role Phone Megan Infante MD Primary Care Provider [phone] Zaki Ortiz MD Unavailable [phone] Concetta Acevedo MD Unavailable + [phone] Jeff Grace MD Unavailable Brit Gonzáles MD Unavailable Encounter Details Date Type Department Care Team (Latest Contact Info) Description 04/20/2024 Travel Social History Tobacco Use Types Packs/Day Years Used Date Smoking Tobacco: Former Passive Smoke Exposure: Past Smokeless Tobacco: Former Chew Alcohol Use Standard Drinks/Week Comments Yes 0 (1 standard drink = 0.6 oz pur e alcohol) 4 beers per week [facility] Utilities Answer Date Recorded In the past 12 months has [facility] [employer], gas, oil, or water [email or web address] threatened to shut off services in your [...] declined 02/16/2023 How often do you attend cheondoism or sabianist serv ices? Patient declined 02/16/2023 Do you belong to any clubs o r organizations such as cheondoism groups, unions, fraternal or athletic groups, or [...] Date Author Status No 07/12/2023 6:58 PM [facility]ARE[facility]ERS NON MEDICAL Liliana Gutierrez, RN Active documented in this encounter Plan of Treatment Upcoming Encounters Date Type Department Care Team (Late st Contact Info) Description 09/25/2024 2:00 PM CAREGIVERS NON MEDICAL Appointment [facility] [address] [facility] [place] [address] Zayra Powell, SOLDERING MACHINE OPERATOR AUTOMATIC [address] [place] [address] 10/16/2024 3:30 PM CAREGIVERS NON MEDICAL Office Visit [facility] [address] [facility] [place] [place] [address] Brit Gonzáles MD [address] [place] [address] documented as of this encounter [...] documented as of this encounter Care Teams Structural Steel Worker Relationship Specialty Start Date End Date Megan Infante MD [address] [place] [address] PCP - General FAMILY PRACTICE 04/06/16 Zaki Ortiz MD [address] [place] [address] Consulting Physician PULMONARY DISEASE 07/12/19 Concetta Acevedo MD [address] [place] [address] Surgeon NEUROLOGICAL SURGERY 12/16/22 Jeff Grace MD [address] [place] [address] Consulting Physician INTERNAL MEDICINE 02/11/23 Brit Gonzáles MD [address] [place] [address] Consulting Physician CARDIOVASCULAR DISEASE 12/29/23 documented as of this encounter
--- OUTSIDE RECORDS SUMMARY | 2024-09-03 20:36 | XMS_ITS | Encounter Summary ---
Author Organization [facility] Address [facility] [place] [address] [place] [address] Care Team Providers Care Special Agent Secret Service Name Role Phone Megan Infante MD Primary Care Provider [phone] Sharmila Davis APRN, NP-C Unavailable Zaki Ortiz MD Unavailable [phone] Concetta Acevedo MD Unavailable + [phone] Jeff Grace MD Unavailable Jayce Younger MD Unavailable Encounter Details Date Type Department Care Team (Latest Contact Info) Description 01/31/2024 10:45 AM CDT - 01/31/2024 11:59 PM CDT Hospital Encounter [facility] [address] [facility] [place] [address] Jayce Younger MD [address] [place] [address] Discharge Disposition: Home or Self Care (Routine Discharge) Social History Tobacco Use Types Packs/Day Years Used Date Smoking Tobacco: Former Smokeless Tobacco: Former Chew Alcohol Use Standard Drinks/Week Comments Yes 0 (1 standard drink = 0.6 oz pur e alcohol) 4 beers per week [facility] Utilities Answer Date Recorded In the past 12 months has [employer], gas, oil, or water company threatened [...] How often do you attend bahai or muslim serv ices? Patient declined 02/16/2023 Do you [...] move on to questions 3-9 0 12/01/2021 [facility]at [facility] - Occupational [...] or slept in a residential (including now)? Patient declined 07/12/2023 Sex and [...] nightly at bedtime. 9 mL 02/09/2023 4 metFORMIN (GLUCOPHAGE) 500 MG tablet Take [...] st Contact Info) Description 09/25/2024 2:00 PM CIRCUIT DESIGN ENGINEER Appointment [facility] [address] [place] [address] Zayra Powell, [facility] [address] [place] [address] 10/16/2024 3:30 PM CIRCUIT DESIGN ENGINEER Office Visit [facility] [address] [place] [address] Jayce Younger MD [address] [place] [address] documented as of this encounter Goals Goal [...] CDT) 01/31/2024 11:1 1 AM CDT Narrative [facility] - 02/01/2024 6:16 AM CDT ? [facility] ?[address] [place], [place] ??[address] ? Test Date: ?2024-01-31 Pat Name: ? OBIE SIMS ?Department: ?? 3 ? Room: ? Gender: ? Male ? Spring Internship: ?? : ?1955 ? Requested By: JAYCE YOUNGER Order Number: [id number] ? Reading MD: ?? Jayce Younger ? Measurements Intervals ?[place]well ? Rate: ? 71 ? P: ? OK: ? 0 ?QRS: ?101 QRSD: ? 135 ?T: ?259 QT: ? 406 ? QTc: ?441 ? Interpretive Statements ATRIAL FIBRILLATION INTRAVENTRICULAR CONDUCTION DELAY POSSIBLE RIGHT VENTRICULAR HYPERTROPHY Procedure Note Jayce Younger MD - 02/01/[address] [place] [address] Test Date: 2024-01-31 Pat Name: OBIE SIMS Department: 3 Room: Gender: Male Spring Internship: : 1955 Requested By: JAYCE YOUNGER Order Number: [id number] Reading MD: Jayce Younger Measurements Intervals [place] Rate: 71 P: OK: 0 QRS: 101 QRSD: 135 T: 259 QT: 406 QTc: 441 Interpretive Statements ATRIAL FIBRILLATION INTRAVENTRICULAR CONDUCTION DELAY POSSIBLE RIGHT VENTRICULAR HYPERTROPHY us Jayce Younger MD ECG ORDERABLES Final Result [facility] documented in this encounter Visit Diagnoses Diagnosis Chronic combined systolic and diastolic congestive heart failure (CMS/HCC HHS/HCC) Chronic combined systolic and diastolic heart failure documented in this encounter Additional Health Concerns Assessment Noted Time PHQ-9 Depression Total Score: 0 12/02/19 22 1:18 PM CDT documented as of this encounter Care Teams Special Agent Secret Service Relationship Specialty Start Date End Date Megan Infante MD [address] [place] [address] [place] [phone] PCP - General FAMILY PRACTICE 04/06/16 Sharmila Davis APRN, UNPAID INTERN-C [address] [place] [address] [phone] NURSE PRACTITIONER 01/04/17 04/03/24 Zaki Ortiz MD [address] [place] [address] [phone] Consulting Physician PULMONARY DISEASE 07/12/19 Concetta Acevedo MD [address] [place] [address] Surgeon NEUROLOGICAL SURGERY 12/16/22 Jeff Grace MD [address] [place] [address] Consulting Physician INTERNAL MEDICINE 02/11/23 Jayce Younger MD [address] [place] [address] Consulting Physician CARDIOVASCULAR DISEASE 12/29/23 documented as of this encounter
--- OUTSIDE RECORDS SUMMARY | 2024-09-03 20:36 | XMS_ITS | Encounter Summary ---
Author Organization [facility] Address [facility]6 [place] [address] [place] [address] Care Team Providers Care Wood Barrel Reconditioner Name Role Phone Megan Infante MD Primary Care Provider [phone] Sharmila Davis APRN, NP-C Unavailable [phone] Zaki Ortiz MD Unavailable [phone] Concetta Acevedo MD Unavailable + [phone] Jeff Grace MD Unavailable Brit Gonzáles MD Unavailable Encounter Details Date Type Department Care Team (Late st Contact Info) Description 03/20/2024 12:53 PM CDT - 03/20/2024 11:59 PM CDT Hospital Encounter [facility] [address] [place] [address] Zayra Powell, [facility] [address] [place] [address] Discharge Disposition: Home or Self Care (Routine Discharge) Social History Tobacco Use Types Packs/Day Years Used Date Smoking Tobacco: Former Smokeless Tobacco: Former Chew Alcohol Use Standard Drinks/Week Comments Yes 0 (1 standard drink = 0.6 oz pur e alcohol) 4 beers per week [facility] Utilities Answer Date Recorded In the past 12 months has [employer], gas, oil, or water company threatened [...] declined 02/16/2023 How often do you attend adventism or baptism serv ices? Patient declined 02/16/2023 Do you belong to any clubs o r organizations such as adventism groups, unions, fraternal or athletic groups, or [...] st Contact Info) Description 09/25/2024 2:00 PM PRINT SHOP CHIEF CLERK Appointment [facility] [address] [place] [address] Zayra Powell, DIP UNIT OPERATOR [address] [place] [address] 10/16/2024 3:30 PM PRINT SHOP CHIEF CLERK Office Visit [facility] [place] [address] [place] [address] [place] [address] Brit Gonzáles MD 6[address] [place] [address] documented as of this encounter Goals Goal [...] documented as of this encounter Care Teams Wood Barrel Reconditioner Relationship Specialty Start Date End Date Megan Infante MD [address] [facility] [place] [phone] PCP - General FAMILY PRACTICE 04/06/16 Sharmila Davis APRN, PAPER GOODS MACHINE OPERATOR-C [address] [facility] [address] [place] [address] NURSE PRACTITIONER 01/04/17 04/03/24 Zaki Ortiz MD [address] [facility] [address] [place] [address] Consulting Physician PULMONARY DISEASE 07/12/19 Concetta Acevedo MD [address] [place] [address] Surgeon NEUROLOGICAL SURGERY 12/16/22 Jeff Grace MD [address] [place] [address] Consulting Physician INTERNAL MEDICINE 02/11/23 Brit Gonzáles MD 619 [place] [address] Consulting Physician CARDIOVASCULAR DISEASE 12/29/23 documented as of this encounter
--- OUTSIDE RECORDS SUMMARY | 2024-09-03 20:36 | XMS_ITS | Encounter Summary ---
Author Organization [facility] Address [facility]6 [facility] [place] [address] [place] [address] Care Team Providers Care Mortgage Protection Sales Name Role Phone Megan Infante MD Primary Care Provider [phone] Sharmila Davis APRN, NP-C Unavailable [phone] Zaki Ortiz MD Unavailable [phone] Concetta Acevedo MD Unavailable + [phone] Jeff Grace MD Unavailable Brit Gonzáles MD Unavailable Reason for Visit * Reason Onset Date Comments Information 02/03/2024 Encounter Details Date Type Department Care Team (Late st Contact Info) Description 02/03/2024 Telephone [facility] 6[address] [place] [address] Brit Gonzáles MD [address] [place] [address] Information Social History Tobacco Use [...] How often do you attend anabaptist or zoroastrianism serv ices? Patient declined 02/16/2023 [...] 0 12/01/2021 [facility] Occupat ional Health - [...] 02/03/2024 4:00 PM CDT I have called [employer] [facility] and left a vm for Nevin. I am calling to make her aware that the pt needs to have some testing done before she can fill out this paperwork. documented in this encounter Plan of Treatment Upcoming Encounters Date Type Department Care Team (Late st Contact Info) Description 09/25/2024 2:00 PM HARNESS PLACER Appointment [facility] [address] [place] [address] Zayra Powell, [facility] [address] [place] [address] 10/16/2024 3:30 PM HARNESS PLACER Office Visit [facility] [address] [place] [phone] Brit Gonzáles MD [address] [place] [address] documented as of this encounter Goals Goal [...] documented as of this encounter Care Teams Mortgage Protection Sales Relationship Specialty Start Date End Date Megan Infante MD [address] [place] [phone] PCP - General FAMILY PRACTICE 04/06/16 hSarmila Davis, AUTOMOTIVE LOT ATTENDANT, EXHIBITS COORDINATOR-C [address] [place] [phone] NURSE PRACTITIONER 01/04/17 04/03/24 Zaki Ortiz MD [address] [place] [address] Consulting Physician PULMONARY DISEASE 07/12/19 Concetta Acevedo MD [address] [place] [address] Surgeon NEUROLOGICAL SURGERY 12/16/22 Jeff Grace MD [address] [place] [address] Consulting Physician INTERNAL MEDICINE 02/11/23 Brit Gonzáles MD [address] [place] [phone] Consulting Physician CARDIOVASCULAR DISEASE 12/29/23 documented as of this encounter
--- OUTSIDE RECORDS SUMMARY | 2024-09-03 20:36 | XMS_ITS | Encounter Summary ---
Author Organization [facility] Address [facility] [place] [address] [place] [address] Care Team Providers Care Health And Safety Instructor Name Role Phone Megan Inafnte MD Primary Care Provider [phone] Sharmila Davis APRN, NP-C Unavailable Zaki Ortiz MD Unavailable [phone] Concetta Acevedo MD Unavailable + [phone] Jeff Grace MD Unavailable Brit Gonzáles MD Unavailable Reason for Visit * Reason Onset Date Comments Error 03/21/2024 Encounter Details Date Type Department Care Team (Late st Contact Info) Description 03/21/2024 Telephone [facility] [address] [place] [address] Brit Gonzáles MD [address] [place] [address] Error Social History Tobacco Use [...] declined 02/16/2023 How often do you attend episcopalian or christian serv ices? Patient declined 02/16/2023 Do you belong to any clubs o r organizations such as episcopalian groups, unions, fraternal or athletic groups, or [...] on to questions 3-9 0 12/01/2021 [facility] Occupat ional Health - Occupational [...] st Contact Info) Description 09/25/2024 2:00 PM DOMESTIC HOUSEKEEPER Appointment [facility] [address] [place] [address] Zayra Powell, GALLERY HOST [address] [facility] [place] [address] 10/16/2024 3:30 PM DOMESTIC HOUSEKEEPER Office Visit [facility] [address] [place] [phone] Brit Gonzáles MD [address] [place] [phone] documented as of this encounter Goals Goal [...] as of this encounter Care Teams Health And Safety Instructor Relationship Specialty Start Date End Date Megan Infante MD [address] [facility] [place] [phone] PCP - General FAMILY PRACTICE 04/06/16 Sharmlia Davis, ENTERPRISE ARCHITECT, LINUX SECURITY ADMINISTRATOR-C [address] [address] NURSE PRACTITIONER 01/04/17 04/03/24 Zaki Ortiz MD [address] [phone] Consulting Physician PULMONARY DISEASE 07/12/19 Concetta Acveedo MD [address] [place] [address] Surgeon NEUROLOGICAL SURGERY 12/16/22 Jeff Grace MD [address] [place] [address] Consulting Physician INTERNAL MEDICINE 02/11/23 Brit Gonzáles MD [address] [place] [address] Consulting Physician CARDIOVASCULAR DISEASE 12/29/23 documented as of this encounter
--- OUTSIDE RECORDS SUMMARY | 2024-09-03 20:36 | XMS_ITS | Encounter Summary ---
Author Organization [facility] Address [facility]6 [facility] [place] [address] [place] [address] Care Team Providers Care Plant Chief Name Role Phone Megan Infante MD Primary Care Provider [phone] Zaki Ortiz MD Unavailable [phone] Romeo-Concetta Pond MD Unavailable + [phone] Jeff Grace MD Unavailable Brit Gonzáles MD Unavailable Reason for Visit * Imaging (Urgent) - New Request Specialty Diagnoses / Procedures Referred By Yung t Referred To Contact RADIOLOGY Diagnoses Claudication (CMS/HCC) Procedures USV ART DUPLEX LOW ELZA Zayra Powell, [facility] [address] [place] [address] Phone: tel: fax: Referral ID Status Reason Start Date Expiration Date V isits Requested Visits Authorized [id number] New Request 04/06/2024 04/06/2025 1 1 Encounter Details Date Type Department Care Team (Late st Contact Info) Description 04/11/2024 12:50 PM CDT - 04/11/2024 2:01 PM CDT Hospital Encounter [facility] [address] [place] [address] Zayra Powell FNP [address] [place] [address] Discharge Disposition: Home or Self Care (Routine Discharge) Social History Tobacco Use Types Packs/Day Years Used Date Smoking Tobacco: Former Smokeless Tobacco: Former Chew Alcohol Use Standard Drinks/Week Comments Yes 0 (1 standard drink = 0.6 oz pur e alcohol) 4 beers per week [facility] Utilities Answer Date Recorded In the past 12 months has e [employer], gas, oil, or water company threatened to [...] How often do you attend congregational or alevism serv ices? Patient declined 02/16/2023 [...] questions 3-9 0 12/01/2021 [facility] - Occupational Stress Questionnaire Answer Date [...] st Contact Info) Description 09/25/2024 2:00 [address] Appointment [facility] [address] [place] [address] Zayra Powell, [facility] [address] [place] [address] 10/16/2024 3:30 PM MOTEL KEEPER Office Visit [facility] [address] [place] [address] Brit Gonzáles MD [address] [place] [address] documented as of this encounter Goals Goal [...] Bilateral ?Vascular Report Pat.Name: ??Mendez Lay ?Pat.ID: ?[id number] ? St.Date: ?? 04/11/2024 ? [facility]: 12:57:00 PM ? Study Type:OUTREACH ART DUPLEX SCAN BILATERAL LEG Height: ?66 in ?Age: ??1955,68Y ? Sex: ? M ? Sonogrphr: Roland Oh RDCS ? Pat. Stat.:Inpatient ? Reason for Study:Bilateral leg pain, Bilateral lower leg wounds, Claudication Procedures: Study performed at [facility], [place], [place] and interpreted by [facility]. ++++++++++++++++++++++++++++++++++++ SUMMARY: ++++++++++++++++++++++++++++++++++++ Rt Lower Ext: 0-19% stenosis noted in all segments of the right lower extremity, though SPORTS WRITER waveform could be suggestive of inflow disease. Lt Lower Ext: 0-19% stenosis noted in all segments of the left lower extremity, though SPORTS WRITER waveform could be suggestive of inflow disease. ++++++++++++++++++++++++++++++++++++ FINDINGS: ++++++++++++++++++++++++++++++++++++ Rt Lower Ext: 0-19% stenosis noted in all segments of the right lower ?extremity. Lt Lower Ext: 0-19% stenosis noted in all segments of the left lower ?extremity. ++++++++++++++++++++++++++++++++++++ MEASUREMENTS: ++++++++++++++++++++++++++++++++++++ ?DOPPLER Left SPORTS WRITER ?? SPORTS WRITER EDV ? 21 cm/s ?SPORTS WRITER PSV ?116 cm/s Left Prox Pop A ?? Prox Pop A EDV ? 0 cm/s ?Prox Pop A PSV ?83 cm/s Left Dist Pop A ?? Dist Pop A PSV ?88 cm/s ?Dist Pop A EDV ?19 cm/s Left Prox WEB MASTER ?? Prox WEB MASTER PSV ?59 cm/s ?Prox WEB MASTER EDV ? 0 cm/s Left Mid WEB MASTER ?? Mid WEB MASTER PSV ? 27 cm/s ?Mid WEB MASTER EDV ?9 cm/s Left Dist WEB MASTER ?? Dist WEB MASTER PSV ? 120 cm/s ?Dist WEB MASTER EDV ? 8 cm/s Left Prox Rahul [...] cm/s ?DPA PSV ? 91 cm/s Right SPORTS WRITER ?? SPORTS WRITER EDV ? 12 cm/s ?SPORTS WRITER PSV ?108 cm/s Right Prox Pop A ?? Prox Pop A EDV ? 0 cm/s ?Prox Pop A PSV ?99 cm/s Right Dist Pop A ?? Dist Pop A PSV ?? 111 cm/s ?Dist Pop A EDV ?16 cm/s Right Prox WEB MASTER ?? Prox WEB MASTER PSV ?23 cm/s ?Prox WEB MASTER EDV ? 6 cm/s Right Mid WEB MASTER ?? Mid WEB MASTER PSV ? 38 cm/s ?Mid WEB MASTER EDV ? 16 cm/s Right Dist WEB MASTER ?? Dist WEB MASTER PSV ?32 cm/s ?Dist WEB MASTER EDV ?10 cm/s Right Prox Rahul A [...] Procedure Note Jeff Grace MD - 04/13/2024 [facility] Arterial Duplex Bilateral Vascular Report Pat.Name: Alireza Mendez esha Pat.ID: [id number] .Date: 04/11/2024 [facility]er.MD: [facility]: 12:57:00 PM Study Type:OUTREACH ART DUPLEX SCAN BILATERAL LEG Height: 66 in Age: 11 1955,68Y Sex: M Sonogrphr: Roland Oh [facility] Pat. Stat.:Inpatient Reason for Study:Bilateral leg pain, Bilateral lower leg wounds, Claudication Procedures: Study performed at [facility], [place], [place] and interpreted by [facility]. ++++++++++++++++++++++++++++++++++++ SUMMARY: ++++++++++++++++++++++++++++++++++++ Rt Lower Ext: 0-19% stenosis noted in all segments of the right lower extremity, though SPORTS WRITER waveform could be suggestive of inflow disease. Lt Lower Ext: 0-19% stenosis noted in all segments of the left lower extremity, though SPORTS WRITER waveform could be suggestive of inflow disease. ++++++++++++++++++++++++++++++++++++ FINDINGS: ++++++++++++++++++++++++++++++++++++ Rt Lower Ext: 0-19% stenosis noted in all segments of the right lower extremity. Lt Lower Ext: 0-19% stenosis noted in all segments of the left lower extremity. ++++++++++++++++++++++++++++++++++++ MEASUREMENTS: ++++++++++++++++++++++++++++++++++++ DOPPLER Left SPORTS WRITER SPORTS WRITER EDV 21 cm/s SPORTS WRITER PSV 116 cm/s Left Prox Pop A Prox Pop A EDV 0 cm/s Prox Pop A PSV 83 cm/s Left Dist Pop A Dist Pop A PSV 88 cm/s Dist Pop A EDV 19 cm/s Left Prox WEB MASTER Prox WEB MASTER PSV 59 cm/s Prox WEB MASTER EDV 0 cm/s Left Mid WEB MASTER Mid WEB MASTER PSV 27 cm/s Mid WEB MASTER EDV 9 cm/s Left Dist WEB MASTER Dist WEB MASTER PSV 120 cm/s Dist WEB MASTER EDV 8 cm/s Left Prox Rahul A [...] Mid JUAN EDV 0 cm/s Left Dist JAUN Dist JUAN PSV 61 cm/s Dist JUAN EDV 0 cm/s Left DPA DPA EDV 9 cm/s DPA PSV 91 cm/s Right SPORTS WRITER SPORTS WRITER EDV 12 cm/s SPORTS WRITER PSV 108 cm/s Right Prox Pop A Prox Pop A EDV 0 cm/s Prox Pop A PSV 99 cm/s Right Dist Pop A Dist Pop A PSV 111 cm/s Dist Pop A EDV 16 cm/s Right Prox WEB MASTER Prox WEB MASTER PSV 23 cm/s Prox WEB MASTER EDV 6 cm/s Right Mid WEB MASTER Mid WEB MASTER PSV 38 cm/s Mid WEB MASTER EDV 16 cm/s Right Dist WEB MASTER Dist WEB MASTER PSV 32 cm/s Dist WEB MASTER EDV 10 cm/s Right Prox Rahul A [...] 12:44 PM Jeff Grace M.D. us Zayra K Andre SERVER CASHIER US VASC Final Result documented in this encounter Visit Diagnoses Not on filedocumented in this encounter Additional Health Concerns Assessment Noted Time PHQ-9 Depression Total Score: 0 12/02/19 22 1:18 PM CDT documented as of this encounter Care Teams Plant Chief Relationship Specialty Start Date End Date Megan Infante MD [address] [place] [phone] PCP - General FAMILY PRACTICE 04/06/16 Zaki Ortiz MD [address] [place] [address] Consulting Physician PULMONARY DISEASE 07/12/19 Romeo-Concetta Pond MD [address] [place] [address] Surgeon NEUROLOGICAL SURGERY 12/16/22 Jeff Grace MD 9 [place] [address] Consulting Physician INTERNAL MEDICINE 02/11/23 Brit Gonzáles MD [address]19 [place] [address] Consulting Physician CARDIOVASCULAR DISEASE 12/29/23 documented as of this encounter
--- OUTSIDE RECORDS SUMMARY | 2024-09-03 20:36 | XMS_ITS | Encounter Summary ---
Author Organization [facility] Address [facility]6 [facility] [place] [address] [place] [address] Care Team Providers Care Plastic Surgery Specialist Name Role Phone Megan Infante MD Primary Care Provider [phone] Sharmila Davis APRN, NP-C Unavailable Zaki Ortiz MD Unavailable [phone] Concetta Acevedo MD Unavailable + [phone] Jeff Grace MD Unavailable Brit Gonzáles MD Unavailable Reason for Visit * Reason Onset Date Comments Schedule Test 01/31/2024 Encounter Details Date Type Department Care Team (Late st Contact Info) Description 01/31/2024 Telephone [facility] [address] [place] [address] Brit Gonzáles MD [address] [place] [address] Schedule Test Social History Tobacco Use Types Packs/Day Years Used Date Smoking Tobacco: Former Smokeless Tobacco: Former Chew Alcohol Use Standard Drinks/Week Comments Yes 0 (1 standard drink = 0.6 oz pur e alcohol) 4 beers per week [facility] Utilities Answer Date Recorded In [...] declined 02/16/2023 How often do you attend jew or confucianism serv ices? Patient declined 02/16/2023 Do you belong to any clubs o r organizations such as jew groups, unions, fraternal or athletic groups, or [...] move on to questions 3-9 0 12/01/2021 [facility] [...] be scheduled : stress test Location : [facility] Date and Time : 03/15/24 @ 7:45 [...] and echo on the same day at [facility] and let him know that he should [...] st Contact Info) Description 09/25/2024 2:00 PM BUTTER FAT TESTER Appointment [facility] [address] [place] [address] Zayra Powell, FROG SHAKER [address] [place] [address] 10/16/2024 3:30 PM BUTTER FAT TESTER Office Visit [facility] [address] [place] [address] Brit Gonzáles MD [address] [place] [address] documented as of this encounter [...] documented as of this encounter Care Teams Plastic Surgery Specialist Relationship Specialty Start Date End Date Megan Infante MD [address] [place] [address] PCP - General FAMILY PRACTICE 04/06/16 Sharmila Davis APRN, AIRPORT DUTY MANAGER-C [address] [facility] [address] [place] [address] NURSE PRACTITIONER 01/04/17 04/03/24 Zaki Ortiz MD [address] [facility] [address] [place] [address] Consulting Physician PULMONARY DISEASE 07/12/19 Concetta Acevedo MD [address] [place] [address] Surgeon NEUROLOGICAL SURGERY 12/16/22 Jeff Grace MD [address] [place] [address] Consulting Physician INTERNAL MEDICINE 02/11/23 Brit Gonzáles MD [address] [place] [address] Consulting Physician CARDIOVASCULAR DISEASE 12/29/23 documented as of this encounter
--- OUTSIDE RECORDS SUMMARY | 2024-09-03 20:36 | XMS_ITS | Encounter Summary ---
Author Organization [facility] Address [facility] [place] [address] [place] [address] Care Team Providers Care Stained Glass Window Designer Name Role Phone Megan Infante MD Primary Care Provider [phone] Sharmila Davis APRN, NP-C Unavailable [phone] Zaki Ortiz MD Unavailable [phone] Concetta Acevedo MD Unavailable + [phone] Jeff Grace MD Unavailable Brit Gonzáles MD [...] Recorded In the past 12 months has [employer], [employer], oil, or water [employer] threatened to shut off services in your [...] How often do you attend pentecostal or voodoo serv ices? Patient declined 02/16/2023 Do you [...] Date Author Status No 07/12/2023 6:58 PM HSE COORDINATOR Liliana Guteirrez, YUNI Active documented in this encounter Plan of Treatment Upcoming Encounters Date Type Department Care Team (Late st Contact Info) Description 09/25/2024 2:00 PM [address]ORDINATOR Appoint[address] [facility] [address] [facility] [place] [address] Zayra Powell, PLATFORM OPERATIONS DIRECTOR [address] [facility] [place] [address] 10/16/2024 3:30 PM HSE COORDINATOR Office Visit [facility] [address] [facility] [place] [address] Brit Gonzáles MD [address] [place] [address] documented as of this encounter Goals [...] documented as of this encounter Care Teams Stained Glass Window Designer Relationship Specialty Start Date End Date Megan Infante MD [address] [facility] [place] [address] PCP - General FAMILY PRACTICE 04/06/16 Sharmila Davis APRN, SLOT FLOOR PERSON-C [address] [place] [address] NURSE PRACTITIONER 01/04/17 04/03/24 Zaki Ortiz MD [address] [place] [phone] Consulting Physician PULMONARY DISEASE 07/12/19 Concetta Acevedo MD [address] [place] [address] Surgeon NEUROLOGICAL SURGERY 12/16/22 Jeff Grace MD [address] [place] [address] Consulting Physician INTERNAL MEDICINE 02/11/23 Brit Gonzáles MD [address] [place], [place] [address] Consulting Physician CARDIOVASCULAR DISEASE 12/29/23 documented as of this encounter
--- OUTSIDE RECORDS SUMMARY | 2024-09-03 20:36 | XMS_ITS | Encounter Summary ---
Author Organization [facility] Address [facility] [place] [address] [place] [address] Care Team Providers Care Rework Operator Name Role Phone Megan Infante MD Primary Care Provider [phone] Sharmila Davis APRN, NP-C Unavailable [phone] Zaki Ortiz MD Unavailable [phone] Concetta Acevedo MD Unavailable [phone] Jeff Grace MD Unavailable Brit Gonzáles MD Unavailable Reason for Referral * Procedure (Routine) - New Request Specialty Diagnoses / Procedures Referred By Yung sequeira Referred To Contact Diagnoses Dyspnea on exertion Procedures Stress Test (Nuclear) [facility] [address] [place] [address] [place] [address] Phone: tel: Referral ID Status Reason Start Date Expiration Date V isits Requested Visits Authorized [id number] New Request 03/15/2024 03/15/2025 1 1 Reason for Visit * Imaging (Routine) - Closed Specialty Diagnoses / Procedures Referred By Yung sequeira Referred To Contact RADIOLOGY Diagnoses Dyspnea on exertion Procedures NM PHARM NUC STRESS TEST 1DBrit Hudson MD [address] [place] [address] Phone: tel: fax: Referral ID Status Reason Start Date Expiration Date Visits Re quested Visits Authorized [id number] Closed 01/31/2024 03/02/2025 4 4 Encounter Details Date Type Department Care Team (Latest Contact Info) Description 03/15/2024 7:47 AM CDT - 03/15/2024 11:59 PM CDT Hospital Encounter [facility] [address] [facility] [place] [address] Brit Gonzáles MD [address] [place] [address] [place] [address] [address] [place] [address] Discharge Disposition: Home or Self Care (Routine Discharge) Social History Tobacco Use Types Packs/Day Years Used Date Smoking Tobacco: Former Smokeless Tobacco: Former Chew Alcohol Use Standard Drinks/Week Comments Yes 0 (1 standard drink = 0.6 oz pur e alcohol) 4 beers per week [facility] Utilities Answer Date Recorded In the past 12 months has [employer], gas, oil, or water [employer] threatened to shut off services in your [...] declined 02/16/2023 How often do you attend nondenominational or confucianism serv ices? Patient declined 02/16/2023 Do you belong to any clubs o r organizations such as nondenominational groups, unions, fraternal or athletic groups, or [...] move on to questions 3-9 0 12/01/2021 [facility] - [...] Contact Info) Description 09/25/2024 2:00 PM SPECIAL DELIVERY MAIL CARRIER Appointment [facility] [address] [place] [address] Zayra Powell FNP [address] [place] [id number] 10/16/2024 3:30 PM SPECIAL DELIVERY MAIL CARRIER Office Visit [facility] [address] [place] [address] Brit Gonzáles MD [address] [place] [address] documented as of this encounter Goals Goal [...] documented as of this encounter Care Teams Rework Operator Relationship Specialty Start Date End Date Megan Infante MD [address] [place] [address] PCP - General FAMILY PRACTICE 04/06/16 Sharmila Davis APRN, ENGINEERING TECHNICAL SPECIALIST-C [address] [facility] [address] [address] NURSE PRACTITIONER 01/04/17 04/03/24 Zaki Ortiz MD [address] [facility] [address] [phone] Consulting Physician PULMONARY DISEASE 07/12/19 Concetta Acevedo MD [address] [place] [address] Surgeon NEUROLOGICAL SURGERY 12/16/22 Jeff Grace MD [address] [place], [place] [address] Consulting Physician INTERNAL MEDICINE 02/11/23 Brit Gonzáles MD [address] [place] [address] Consulting Physician CARDIOVASCULAR DISEASE 12/29/23 documented as of this encounter
--- OUTSIDE RECORDS SUMMARY | 2024-09-03 20:36 | XMS_ITS | Encounter Summary ---
Author Organization [facility] Address [facility] [place] [address] [place] [address] Care Team Providers Care Writing Tutor Name Role Phone Megan Infante MD Primary Care Provider [phone] Sharmila Davis APRN, NP-C Unavailable Zaki Ortiz MD Unavailable [phone] Concetta Acevedo MD Unavailable + [phone] Jeff Grace MD Unavailable Brit Gonzáles MD Unavailable Encounter Details Date Type Department Care Team (Late st Contact Info) Description 03/30/2024 Orders Only [facility] [address] [place], [place] [phone] Brit Gonzáles MD [address] [place] [address] Social History Tobacco Use Types Packs/Day Years Used Date Smoking Tobacco: Former Smokeless Tobacco: Former Chew Alcohol Use Standard Drinks/Week Comments Yes 0 (1 standard drink = 0.6 oz pur e alcohol) 4 beers per week [facility] Utilities Answer Date Recorded In the [...] How often do you attend scientologist or synagogue serv ices? Patient declined 02/16/2023 Do you [...] Assessment Author Status No 07/12/2023 6:58 PM PRE SCHOOL TEACHER Brenda, Liliana A, RN Active * Because [...] st Contact Info) Description 09/25/2024 2:00 PM PRE SCHOOL TEACHER Appointment [facility] [address] [place] [address] Zayra Powell, POLE LIFT OPERATOR [address] [facility] [address] [place] [phone] 10/16/2024 3:30 PM PRE SCHOOL TEACHER Office Visit [facility] [address] [place] [address] Brit Gonzáles MD [address] [place] [address] Scheduled Orders Name Type Priority [...] documented as of this encounter Care Teams Writing Tutor Relationship Specialty Start Date End Date Megan Infante MD [address] [place] [address] PCP - General FAMILY PRACTICE 04/06/16 Sharmila Davis, SLIP OPERATOR, FLEET MAINTENANCE FOREMAN-C [address] [place] [phone] NURSE PRACTITIONER 01/04/17 04/03/24 Zaki Ortiz MD [address] [place] [phone] Consulting Physician PULMONARY DISEASE 07/12/19 Concetta Acevedo MD [address] [place] [phone] Surgeon NEUROLOGICAL SURGERY 12/16/22 Jeff Grace MD [address] [place] [address] Consulting Physician INTERNAL MEDICINE 02/11/23 Brit Gonzáles MD [address] [place] [phone] Consulting Physician CARDIOVASCULAR DISEASE 12/29/23 documented as of this encounter
--- OUTSIDE RECORDS SUMMARY | 2024-09-03 20:36 | XMS_ITS | Encounter Summary ---
Author Organization [facility] Address [facility] [place] [address] [place] [address] Care Team Providers Care Manager Med Surg Name Role Phone Megan Infante MD Primary Care Provider [phone] Sharmila Davis APRN, NP-C Unavailable Zaki Ortiz MD Unavailable [phone] Concetta Acevedo MD Unavailable + [phone] Jeff Grace MD Unavailable Brit Gonzáles MD Unavailable Encounter Details Date Type Department Care Team (Late st Contact Info) Description 03/06/2024 1:00 PM CDT - 03/06/2024 11:59 PM CDT Hospital Encounter [facility] [address] [place] [address] Zayra Powell, [facility] [address] [place] [address] Discharge Disposition: Home or Self Care (Routine Discharge) Social History Tobacco Use Types Packs/Day Years Used Date Smoking Tobacco: Former Smokeless Tobacco: Former Chew Alcohol Use Standard Drinks/Week Comments Yes 0 (1 standard drink = 0.6 oz pur e alcohol) 4 beers per week [facility] Utilities Answer Date Recorded In the past 12 months has [employer], gas, oil, or water company threatened [...] How often do you attend mormonism or samaritan serv ices? Patient declined 02/16/2023 [...] 12/01/2021 [facility] Health - Occupational [...] st Contact Info) Description 09/25/2024 2:00 PM ABSORPTION AND ADSORPTION ENGINEER Appointment [facility] [place] [address] Zayra oPwell FNP [address] [facility] [place] [address] 10/16/2024 3:30 PM ABSORPTION AND ADSORPTION ENGINEER Office Visit [facility] [address] [place] [phone] Brit Gonzáles MD [address] [place] [address] documented as of this encounter Goals Goal [...] SPEC DESCRIPTION LEG,LEFT 03/06/2024 2:51 PM CDT [facility] SPECIAL REQUESTS NO SPECIAL REQUEST 03/06/2024 2:51 PM CDT [facility] GRAM STAIN RESULT NO ORGANISMS SEEN 03/06/2024 4:57 PM CDT [facility] CULTURE RESULT FEW PSEUDOMONAS AERUGINOSA 03/09/2024 9:16 AM CDT [facility] CULTURE RESULT FEW STENOTROPHOMONA S MALTOPHILIA 03/09/2024 9:16 AM CDT [facility] STRUCTURE OF LEFT LOWER LIMB [...] MICROBIOLOGY - GENERAL ORDERAB LES Final Result [facility] [address] [place] [address], [place] [phone] [id number] [facility] [address] [place] [address], [place] [phone] documented in this encounter Visit Diagnoses Diagnosis [...] as of this encounter Care Teams Manager Med Surg Relationship Specialty Start Date End Date Megan Infante MD [address] [facility] [place] [phone] PCP - General FAMILY PRACTICE 04/06/16 Sharmila Davis, ELECTRIC ACCOUNTING MACHINE OPERATOR, LINING SETTER-C [address] [place] [phone] NURSE PRACTITIONER 01/04/17 04/03/24 Zaki Ortiz MD [address] [place] [phone] Consulting Physician PULMONARY DISEASE 07/12/19 Concetta Acevedo MD [address] [place] [phone] Surgeon NEUROLOGICAL SURGERY 12/16/22 Jeff Grace MD [address] [place] [address] Consulting Physician INTERNAL MEDICINE 02/11/23 Brit Gonzáles MD [address] [place] [phone] Consulting Physician CARDIOVASCULAR DISEASE 12/29/23 documented as of this encounter
--- OUTSIDE RECORDS SUMMARY | 2024-09-03 20:36 | XMS_ITS | Encounter Summary ---
Author Organization [facility] Address [facility] [place] [address] [place] [address] Care Team Providers Care Concrete Grinder Operator Name Role Phone Megan Infante MD Primary Care Provider [phone] Zaki Ortiz MD Unavailable [phone] Romeo-Concetta Pond MD Unavailable + [phone] Jeff Grace MD Unavailable Brit Gonzáles MD Unavailable Reason for Referral * Imaging (Urgent) - New Request Specialty Diagnoses / Procedures Referred By Yung t Referred To Contact RADIOLOGY Diagnoses Claudication (CMS/HCC) Procedures USV ART DUPLEX LOW ELZA Zayra Powell FNP [address] [place] [address] Phone: tel: fax: Referral ID Status Reason Start Date Expiration Date V isits Requested Visits Authorized [id number] New Request 04/06/2024 04/06/2025 1 1 Encounter Details Date Type Department Care Team (Late st Contact Info) Description 04/06/2024 12:59 PM CDT - 04/06/2024 11:59 PM CDT Hospital Encounter [facility] [address] [place] [address] Zayra Powell FNP [address] [place] [address] Discharge Disposition: Home or Self Care (Routine Discharge) Social History Tobacco Use Types Packs/Day Years Used Date Smoking Tobacco: Former Smokeless Tobacco: Former Chew Alcohol Use Standard Drinks/Week Comments Yes 0 (1 standard drink = 0.6 oz pur e alcohol) 4 beers per week [facility] Utilities Answer Date Recorded In the past 12 months has e [employer], gas, oil, or water [employer] threatened to shut off services in your [...] How often do you attend hinduism or holiness serv ices? Patient declined 02/16/2023 [...] move on to questions 3-9 0 12/01/2021 [facility] - Occupational [...] Patient has an appointment with you in [place] today. Lower extremity pain when elevated, relief when in dependent position. Suspect claudication. documented in this encounter Plan of Treatment Upcoming Encounters Date Type Department Care Team (Late st Contact Info) Description 09/25/2024 2:00 PM SWITCHBOARD AND CONTROL ROOM OPERATOR Appointment [facility] [address] [place] [address] Zayra Powell FNP [address] [facility] [place] [address] 10/16/2024 3:30 PM SWITCHBOARD AND CONTROL ROOM OPERATOR Office Visit [facility] [address] [place] [phone] Brit Gonzáles MD [address] [place] [address] documented as of this encounter Goals Goal [...] Bilateral ?Vascular Report Pat.Name: ??AlirezaMendez esha ?Pat.ID: ?[id number] ? St.Date: ?? 04/11/2024 ? Refer.MD: ??Outreach, [facility] Exam Time: 12:57:00 PM ? Study Type:OUTREACH ART DUPLEX SCAN BILATERAL LEG Height: ?66 in ?Age: ??1955,68Y ? Sex: ? M ? Sonogrphr: Roland Oh RDCS ? Pat. Stat.:Inpatient ? Reason for Study:Bilateral leg pain, Bilateral lower leg wounds, Claudication Procedures: Study performed at [place], [place] and interpreted by [facility]. ++++++++++++++++++++++++++++++++++++ SUMMARY: ++++++++++++++++++++++++++++++++++++ Rt Lower Ext: 0-19% stenosis noted in all segments of the right lower extremity, though E COMMERCE STRATEGIST waveform could be suggestive of inflow disease. Lt Lower Ext: 0-19% stenosis noted in all segments of the left lower extremity, though E COMMERCE STRATEGIST waveform could be suggestive of inflow disease. ++++++++++++++++++++++++++++++++++++ FINDINGS: ++++++++++++++++++++++++++++++++++++ Rt Lower Ext: 0-19% stenosis noted in all segments of the right lower ?extremity. Lt Lower Ext: 0-19% stenosis noted in all segments of the left lower ?extremity. ++++++++++++++++++++++++++++++++++++ MEASUREMENTS: ++++++++++++++++++++++++++++++++++++ ?DOPPLER Left E COMMERCE STRATEGIST ?? E COMMERCE STRATEGIST EDV ? 21 cm/s ?E COMMERCE STRATEGIST PSV ?116 cm/s Left Prox Pop A ?? Prox Pop A EDV ? 0 cm/s ?Prox Pop A PSV ?83 cm/s Left Dist Pop A ?? Dist Pop A PSV ?88 cm/s ?Dist Pop A EDV ?19 cm/s Left Prox JAVA SYBASE DEVELOPER ?? Prox JAVA SYBASE DEVELOPER PSV ?59 cm/s ?Prox JAVA SYBASE DEVELOPER EDV ? 0 cm/s Left Mid JAVA SYBASE DEVELOPER ?? Mid JAVA SYBASE DEVELOPER PSV ? 27 cm/s ?Mid JAVA SYBASE DEVELOPER EDV ?9 cm/s Left Dist JAVA SYBASE DEVELOPER ?? Dist JAVA SYBASE DEVELOPER PSV ? 120 cm/s ?Dist JAVA SYBASE DEVELOPER EDV ? 8 cm/s Left Prox Rahul [...] ?? Prox JUAN PSV ?91 cm/s ?Prox JUNA EDV ? 9 cm/s Left Mid JUAN ?? Mid JUAN PSV ? 81 cm/s ?Mid JUAN EDV ?0 cm/s Left Dist JUAN ?? Dist JUAN PSV ?61 cm/s ?Dist JUAN EDV ? 0 cm/s Left DPA ?? DPA EDV ?9 cm/s ?DPA PSV ? 91 cm/s Right E COMMERCE STRATEGIST ?? E COMMERCE STRATEGIST EDV ? 12 cm/s ?E COMMERCE STRATEGIST PSV ?108 cm/s Right Prox Pop A ?? Prox Pop A EDV ? 0 cm/s ?Prox Pop A PSV ?99 cm/s Right Dist Pop A ?? Dist Pop A PSV ?? 111 cm/s ?Dist Pop A EDV ?16 cm/s Right Prox JAVA SYBASE DEVELOPER ?? Prox JAVA SYBASE DEVELOPER PSV ?23 cm/s ?Prox JAVA SYBASE DEVELOPER EDV ? 6 cm/s Right Mid JAVA SYBASE DEVELOPER ?? Mid JAVA SYBASE DEVELOPER PSV ? 38 cm/s ?Mid JAVA SYBASE DEVELOPER EDV ? 16 cm/s Right Dist JAVA SYBASE DEVELOPER ?? Dist JAVA SYBASE DEVELOPER PSV ?32 cm/s ?Dist JAVA SYBASE DEVELOPER EDV ?10 cm/s Right Prox Rahul A [...] Duplex Bilateral Vascular Report Pat.Name: Mendez Lay.ID: [id number] [facility]: [facility] Refer.MD: Outreach, [facility] Exam Time: 12:57:00 PM Study Type:OUTREACH ART DUPLEX SCAN BILATERAL LEG Height: 66 in Age: 11 1955,68Y Sex: M Sonogrphr: Roland Oh [facility] Pat. Stat.:Inpatient Reason for Study:Bilateral leg pain, Bilateral lower leg wounds, Claudication Procedures: Study performed at [facility], [place], [place] and interpreted by [facility]. ++++++++++++++++++++++++++++++++++++ SUMMARY: ++++++++++++++++++++++++++++++++++++ Rt Lower Ext: 0-19% stenosis noted in all segments of the right lower extremity, though E COMMERCE STRATEGIST waveform could be suggestive of inflow disease. Lt Lower Ext: 0-19% stenosis noted in all segments of the left lower extremity, though E COMMERCE STRATEGIST waveform could be suggestive of inflow disease. ++++++++++++++++++++++++++++++++++++ FINDINGS: ++++++++++++++++++++++++++++++++++++ Rt Lower Ext: 0-19% stenosis noted in all segments of the right lower extremity. Lt Lower Ext: 0-19% stenosis noted in all segments of the left lower extremity. ++++++++++++++++++++++++++++++++++++ MEASUREMENTS: ++++++++++++++++++++++++++++++++++++ DOPPLER Left E COMMERCE STRATEGIST E COMMERCE STRATEGIST EDV 21 cm/s E COMMERCE STRATEGIST PSV 116 cm/s Left Prox Pop A Prox Pop A EDV 0 cm/s Prox Pop A PSV 83 cm/s Left Dist Pop A Dist Pop A PSV 88 cm/s Dist Pop A EDV 19 cm/s Left Prox JAVA SYBASE DEVELOPER Prox JAVA SYBASE DEVELOPER PSV 59 cm/s Prox JAVA SYBASE DEVELOPER EDV 0 cm/s Left Mid JAVA SYBASE DEVELOPER Mid JAVA SYBASE DEVELOPER PSV 27 cm/s Mid JAVA SYBASE DEVELOPER EDV 9 cm/s Left Dist JAVA SYBASE DEVELOPER Dist JAVA SYBASE DEVELOPER PSV 120 cm/s Dist JAVA SYBASE DEVELOPER EDV 8 cm/s Left Prox Rahul A [...] 9 cm/s DPA PSV 91 cm/s Right E COMMERCE STRATEGIST E COMMERCE STRATEGIST EDV 12 cm/s E COMMERCE STRATEGIST PSV 108 cm/s Right Prox Pop A Prox Pop A EDV 0 cm/s Prox Pop A PSV 99 cm/s Right Dist Pop A Dist Pop A PSV 111 cm/s Dist Pop A EDV 16 cm/s Right Prox JAVA SYBASE DEVELOPER Prox JAVA SYBASE DEVELOPER PSV 23 cm/s Prox JAVA SYBASE DEVELOPER EDV 6 cm/s Right Mid JAVA SYBASE DEVELOPER Mid JAVA SYBASE DEVELOPER PSV 38 cm/s Mid JAVA SYBASE DEVELOPER EDV 16 cm/s Right Dist JAVA SYBASE DEVELOPER Dist JAVA SYBASE DEVELOPER PSV 32 cm/s Dist JAVA SYBASE DEVELOPER EDV 10 cm/s Right Prox Rahul A [...] PM Jeff Grace M.D. us Zayra Powell FONDANT PUFF MAKER US VASC Final Result documented in this encounter Visit Diagnoses Diagnosis Claudication (CMS/[facility])- Primary Peripheral vascular disease, unspecified Non-pressure chronic ulcer of left calf limited to breakdown of skin ([facility]/HCC HHS/HCC) 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 breakdown of skin ([facility] HHS/HCC) documented in this encounter Administered Medications Inactive Administered Medications - up to 3 most recent administrations Medication Order MAR Action Action Date Dose Rate Site lidocaine 2 % URO-JET jelly Topical, Once, 1 dose, On Taisha 04/06/24 at 1345Indications: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 breakdown of skin ([facility]/HCC HHS/HCC) Given 04/06/2024 1:10 PM CDT documented in this encounter Additional Health Concerns Assessment Noted Time PHQ-9 Depression Total Score: 0 12/02/19 1:18 PM CDT documented as of this encounter Care Teams Concrete Grinder Operator Relationship Specialty Start Date End Date Megan Infante MD [address] [place] [address] PCP - General FAMILY PRACTICE 04/06/16 Zaki Ortiz MD [address] [place] [phone] Consulting Physician PULMONARY DISEASE 07/12/19 Concetta Acevedo MD [address] [place] [address] Surgeon NEUROLOGICAL SURGERY 12/16/22 Jeff Grace MD [address] [place] [address] Consulting Physician INTERNAL MEDICINE 02/11/23 Brit Gonzáles MD [address] [place] [address] Consulting Physician CARDIOVASCULAR DISEASE 12/29/23 documented as of this encounter
--- OUTSIDE RECORDS SUMMARY | 2024-09-03 20:36 | XMS_ITS | Encounter Summary ---
Author Organization [facility] Address [facility]. [place], [place] [address] [place] [address] Care Team Providers Care Assembler Flexible Leads Name Role Phone Megan Infante MD Primary Care Provider [phone] Zaki Ortiz MD Unavailable [phone] Concetta Acevedo MD Unavailable + [phone] Jeff Grace MD Unavailable Brit Gonzáles MD Unavailable Reason for Referral * Imaging (Routine) - Closed Specialty Diagnoses / Procedures Referred By Yung sequeira Referred To Contact RADIOLOGY Diagnoses Chronic venous insufficiency Varicose veins of bilateral lower extremities with other complications PAD (peripheral artery disease) (CMS/HCC) Procedures Pressi STELLA [email or web address] Jeff Pulido MD [address] [place] [address] Phone: tel: fax: Referral ID Status Reason Start Date Expiration Date Visits Re quested Visits Authorized [id number] Closed 04/17/2024 05/18/2025 1 1 Reason for Visit * Imaging (Routine) - Closed Specialty Diagnoses / Procedures Referred By Contcarmen sequeira Referred To Contact RADIOLOGY Diagnoses Chronic venous insufficiency Varicose veins of bilateral lower extremities with other complications PAD (peripheral artery disease) (CMS/HCC) Procedures [employer] Jeff Pulido MD [address] [place] [address] Phone: tel: fax: Referral ID Status Reason Start Date Expiration Date Visits Re quested Visits Authorized [id number] Closed 04/17/2024 05/18/2025 1 1 Encounter Details Date Type Department Care Team (Latest Contact Info) Description 04/27/2024 2:13 PM CDT - 04/27/2024 2:47 PM CDT Hospital Encounter [facility] [address] [place] [address] Jeff Grace MD [address] [place], [place] [phone] Discharge Disposition: Home or Self Care (Routine Discharge) Social History Tobacco Use Types Packs/Day Years Used Date Smoking Tobacco: Former Passive Smoke Exposure: Past Smokeless Tobacco: Former Chew Alcohol Use Standard Drinks/Week Comments Yes 0 (1 standard drink = 0.6 oz pur e alcohol) 4 beers per week [facility] Utilities Answer Date Recorded In the past 12 months has [employer], gas, oil, or water [employer] threatened to shut off services in your [...] How often do you attend amish or scientology serv ices? Patient declined 02/16/2023 Do you [...] move on to questions 3-9 0 12/01/2021 [facility] - Occupational [...] st Contact Info) Description 09/25/2024 2:[address] TEST EXAMINER Appointment [facility] [address] [place] [address] Zayra Powell, DOUBLE BASS PLAYER [address] [facility] [place] [address] 10/16/2024 3:[address] TEST EXAMINER Office Visit [facility] [place] [id number] [place] [phone] Brit Gonzáles MD [address] [place] [address] documented as of this encounter Goals Goal [...] STELLA ?Vascular Report Pat.Name: ??Mendez Lay ?Pat.ID: ?[id number] ? St.Date: ?? 04/27/2024 ? Refer.MD: ??[facility], [facility] Exam Time: 2:19:00 PM ? Study Type:OUTREACH ART DOPPLER - STELLA Height: ?66 in ?Age: ??1955,68Y ? Sex: ? M ? Sonogrphr: jl Gupta rdms, rvt, rdcs Pat. Stat.:Outpatient ? Reason for Study:Chronic venous insufficiency, Varicose veins of bilateral lower extremities with other complications, PAD (peripheral artery disease), Wound BLE Procedures: Study performed at [place], [place] and interpreted by [facility]. [...] Procedure Note Jeff Grace MD - 04/28/2024 [facility] Arterial Doppler STELLA Vascular Report Pat.Name: Mendez Lay Pat.ID: [id number] .Date: 04/27/2024 Refer.MD: [facility] Exam Time: 2:19:00 PM Study Type:[facility] ART DOPPLER - STELLA Height: 66 in Age: 11 1955,68Y Sex: M Sonogrphr: jl Gupta rdms, rvt, rdcs Pat. Stat.:Outpatient Reason for Study:Chronic venous insufficiency, Varicose veins of bilateral lower extremities with other complications, PAD (peripheral artery disease), Wound BLE Procedures: Study performed at [place], [place] and interpreted by [facility]. [...] with other complications PAD (peripheral artery disease) ([facility]/HCC) Peripheral vascular disease, unspecified documented in this encounter Additional Health Concerns Assessment Noted Time PHQ-9 Depression Total Score: 0 12/02/19 22 1:18 PM CDT documented as of this encounter Care Teams Assembler Flexible Leads Relationship Specialty Start Date End Date Megan Infante MD [address] [facility] [address] PCP - General FAMILY PRACTICE 04/06/16 Zaki Ortiz MD [address] [facility] [address] Consulting Physician PULMONARY DISEASE 07/12/19 Concetta Acevedo MD [address] [place] [address] Surgeon NEUROLOGICAL SURGERY 12/16/22 Jeff Grace MD [address] [place] [address] Consulting Physician INTERNAL MEDICINE 02/11/23 Brit Gonzáles MD [address] [place] [address] Consulting Physician CARDIOVASCULAR DISEASE 12/29/23 documented as of this encounter
--- OUTSIDE RECORDS SUMMARY | 2024-09-03 20:36 | XMS_ITS | Encounter Summary ---
Author Organization [facility] Address [facility]. [place], [place] [address] [place] [address] Care Team Providers Care Journeyman Machinist Name Role Phone Megan Infante MD Primary Care Provider [phone] Sharmila Davis APRN, NP-C Unavailable [phone] Zaki Ortiz MD Unavailable [phone] Concetta Acevedo MD Unavailable [phone] Jeff Grace MD Unavailable Brit Gonzáles MD Unavailable Reason for Referral * Imaging (Routine) - Closed Specialty Diagnoses / Procedures Referred By Yung sequeira Referred To Contact RADIOLOGY Diagnoses Dyspnea on exertion Procedures NM PHARM NUC STRESS TEST 1DAY Brit Gonzáles MD [address] [place] [address] Phone: tel: fax: Referral ID Status Reason Start Date Expiration Date Visits Re quested Visits Authorized [id number] Closed 01/31/2024 03/02/2025 4 4 * Imaging (Routine) - Closed Specialty Diagnoses / Procedures Referred By Yung sequeira Referred To Contact RADIOLOGY Diagnoses Dyspnea on exertion Procedures USE ECHOCARDIOGRAM Brit Gonzáles MD [address] [place] [address] Phone: tel: fax: Referral ID Status Reason Start Date Expiration Date Visits Re quested Visits Authorized [id number] Closed 01/31/2024 01/30/2025 1 1 * Medication Prior Authorization - Authorized Specialty Diagnoses / Procedures Referred By Contac t Referred To Contact Diagnoses Chronic combined systolic and diastolic congestive heart failure ([facility]/HCC [facility]/HCC) Brit Gonzáles MD [address] [place] [address] Phone: tel: fax: Referral ID Status Reason Start Date Expiration Date V isits Requested Visits Authorized [id number] Authorized 08/23/2023 08/22/2024 1 1 Reason for Visit * Reason Comments Heart Problem Encounter Details Date Type Department Care Team (Late st Contact Info) Description 01/31/2024 11:00 AM CDT Office Visit [facility] [place] [address] Brit Gonzáles MD [address] [place], [place] [id number] Heart Problem Social History Tobacco Use Types Packs/Day Years Used Date Smoking Tobacco: Former Smokeless Tobacco: Former Chew Tobacco Cessation:Counseling Given: Not Answered Alcohol Use Standard Drinks/Week Comments Yes 0 (1 standard drink = 0.6 oz pur e alcohol) 4 beers per week [facility] Utilities Answer Date Recorded In the past 12 months has [employer], [employer], or water [employer] threatened to shut off services in your [...] How often do you attend protestant or latter-day serv ices? Patient declined 02/16/2023 [...] move on to questions 3-9 0 12/01/2021 [facility] of Occupat ional [...] s/p mechanical AVR 1999 withbioprosthetic AVR 2013, I-BRUSH HAND, carotid stenosis, HHD, HLD, DM, COPD, CVI [...] mechanical AVR 1999 with bioprosthetic AVR 2013, I-BRUSH HAND, carotid stenosis, HHD, HLD, DM, COPD, CVI [...] for BELLA (Please schedule both tests at [facility] on the same day) Check CMP and [...] chronic heart failure, unspecified heart failure type ([facility] HHS/HCC) Anxiety Aortic valve stenosis Arthritis Asthma, mild persistent (HHS/HCC) 04/06/2021 Atrial fibrillation ([facility]) s/p PVI/WACA 10/2015 Bilateral leg pain Carotid disease, bilateral ([facility]) CHF (congestive heart failure) ([facility]) Claudication ([place]) COPD (chronic obstructive pulmonary disease) ([facility]) Coronary artery disease Diabetes mellitus, type II ([facility]) Edema 04/19/2018 2+ pitting History of blood transfusion Hyperlipidemia Hypertension LV dysfunction Osteoarthritis PAD (peripheral artery disease) ([facility]) Pneumonia Restless leg syndrome S/P aortic valve replacement with bioprosthetic valve 2013 SOB (shortness of breath) Stroke ([facility]) Varicose veins of bilateral lower extremities with other complications Weight gain with edema Past Surgical History: Procedure Laterality Date APPENDECTOMY CARDIAC VALVE REPLACEMENT 1999 CARDIAC VALVE REPLACEMENT 2013 CARDIOVERSION EXTERNAL 10/01/2015 CARDIOVERSION EXTERNAL 04/14/2012 COLONOSCOPY N/A 03/18/2021 COLONOSCOPY (Incomplete) performed by Kilo Navarro MD at [facility] OR COLONOSCOPY N/A 01/27/2022 COLONOSCOPY WITH COLD SNARE POLYPECTOMY performed by Kilo Navarro MD at [facility] OR HIP ARTHROPLASTY Left KNEE ARTHROPLASTY Bilateral [...] Comments: Diagnoses/Impression: 1. Coronary artery disease involving ekuk coronary artery of ekuk heart without angina pectoris 2. S/P aortic valve replacement with bioprosthetic valve 3. Chronic atrial fibrillation ([facility]/HCC HHS/HCC) 4. Chronic combined systolic and diastolic congestive heart failure ([facility] HHS/HCC) Referring Provider: No ref. provider found PCP: MEGAN INFANTE MD documented in this encounter Plan of Treatment Upcoming Encounters Date Type Department Care Team (Late st Contact Info) Description 09/25/2024 2:00 PM PRODUCTION MECHANIC Appointment [facility] [address] [place] [address] Zayra Powell, CSM CONSULTANT [address] [place] [address] 10/16/2024 3:30 PM PRODUCTION MECHANIC Office Visit [facility] [address] [place] [address] Brit Gonzáles MD [address] [place] [address] Scheduled Orders Name Type Priority Associated Diagnoses [...] CDT ?Echocardiography Report Pat.Name: ??Mendez Lay ?Pat.ID: ?[id number] ? St.Date: ?? 03/15/2024 ? Refer.MD: ??Outreach, [facility] Exam Time: 10:29:00 AM ? Study Type:OUTREACH ? Height: ?66 in ? Weight: ?220 lb ? BSA: ? 2.08 m2 ?Age: ??1955,68Y ? Sex: ? M ? Sonogrphr: Am ? Pat. Stat.:Outpatient ? Reason for Study:Dyspnea on exertion Procedures: Study performed at [facility], [place], [place] and interpreted by [facility]. 2D, M-mode, Doppler, Color Flow, [...] - 03/17/2024 Echocardiography Report Pat.Name: Mendez Lay.ID: [id number] .Date: 03/15/2024 Refer.MD: Maldonado, [facility] Exam Time: 10:29:00 AM Study Type:[facility] Height: 66 in Weight: 220 lb BSA: 2.08 m2 Age: 11 1955,68Y Sex: M Sonogrphr: Amado [place]. Stat.:Outpatient Reason for Study:Dyspnea on exertion Procedures: Study performed at [facility], [place], [place] and interpreted by [facility]. 2D, M-mode, Doppler, Color Flow, [...] PERFUSION SCAN ? Pat.Name: ??Mendez Lay ?Pat.ID: ?[id number] ? St.Date: ?? 03/15/2024 ? Refer.MD: ??Outreach, [facility] Exam Time: 8:40:00 AM ?Study Type:[place] OUTREACH ? Height: ?66 in ? Weight: ?222 lb ? BSA: ? 2.09 m2 ?Age: ??1955,68Y ? Sex: ? M ? Sonogrphr: Terrance Atalla, SOFTWARE ENGINEERING SPECIALIST ? Pat. Stat.:Outpatient ? Reason for Study:Dyspnea on exertion Procedures: Study performed at [facility], [place], [place] and interpreted by [facility]. Regadenoson Stress, Stress Gated SPECT, [...] MYOCARDIAL PERFUSION SCAN Pat.Name: Mendez Lay Pat.ID: [id number] .Date: 03/15/2024 Refer.MD: Maldonado, [facility] Exam Time: 8:40:00 AM Study Type:[place] Height: 66 in Weight: 222 lb BSA: 2.09 m2 Age: 11 1955,68Y Sex: M Sonogrphr: PARIS Sims Pat. Stat.:Outpatient Reason for Study:Dyspnea on exertion Procedures: Study performed at [place], [place] and interpreted by [facility]. Regadenoson Stress, Stress Gated SPECT, [...] AM Brit Gonzáles M.D. Brit Gonzáles MD [facility] Final Result documented in this encounter Visit Diagnoses Diagnosis Coronary artery disease involving ekuk coronary artery of ekuk heart without angina pectoris- Primary S/P aortic valve replacement with bioprosthetic valve Heart valve replaced by other means Chronic atrial fibrillation ([facility] HHS/HCC) Atrial fibrillation Chronic combined systolic and diastolic congestive heart failure ([facility] HHS/HCC) Chronic combined systolic and diastolic heart failure Dyspnea on exertion Other dyspnea and respiratory abnormality Mixed hyperlipidemia Dyspnea on exertion Other dyspnea and respiratory abnormality documented in this encounter Additional Health Concerns Assessment Noted Time PHQ-9 Depression Total Score: 0 12/02/19 22 1:18 PM CDT documented as of this encounter Care Teams Journeyman Machinist Relationship Specialty Start Date End Date Megan Infante MD [address] [place] [phone] PCP - General FAMILY PRACTICE 04/06/16 Sharmila Davis APRN, MOLD MAKER APPRENTICE-C [address] [place] [address] NURSE PRACTITIONER 01/04/17 04/03/24 Zaki Ortiz MD [address] [place] [address] Consulting Physician PULMONARY DISEASE 07/12/19 Concetta Acevedo MD [address] [place] [address] Surgeon NEUROLOGICAL SURGERY 12/16/22 Jeff Grace MD [address] [place] [address] Consulting Physician INTERNAL MEDICINE 02/11/23 Brit Gonzáles MD [address] [place] [address] Consulting Physician CARDIOVASCULAR DISEASE 12/29/23 documented as of this encounter
--- OUTSIDE RECORDS SUMMARY | 2024-09-03 20:36 | XMS_ITS | Encounter Summary ---
Author Organization [facility] Address [facility] [place] [address] [place] [address] Care Team Providers Care Territory Outside Sales Manager Name Role Phone Megan Infante MD Primary Care Provider [phone] Zaki Ortiz MD Unavailable [phone] Concetta Acevedo MD Unavailable + [phone] Jeff Grace MD Unavailable Brit Gonzáles MD [...] Recorded In the past 12 months has [facility], gas, oil, or water [employer] threatened to shut off services in your [...] declined 02/16/2023 How often do you attend congregation or christian serv ices? Patient declined 02/16/2023 Do you belong to any clubs o r organizations such as congregation groups, unions, fraternal or athletic groups, or [...] Date Author Status No 07/12/2023 6:58 PM CLAY DIGGER Liliana Gutierrez, RN Active documented in this encounter Plan of Treatment Upcoming Encounters Date Type Department Care Team (Late st Contact Info) Description 09/25/2024 2:[address] [facility] [address] [place] [address] Zayra Powell, LABORATORY TESTER [address] [facility] [place] [address] 10/16/2024 3:30 PM CLAY DIGGER Office Visit [facility] [address] [facility] [place] [address] Brit Gonzáles MD [address] [place] [address] documented as of this encounter [...] documented as of this encounter Care Teams Territory Outside Sales Manager Relationship Specialty Start Date End Date Megan Infante MD [address] [place] [address] PCP - General FAMILY PRACTICE 04/06/16 Zaki Ortiz MD [address] [place] [address] Consulting Physician PULMONARY DISEASE 07/12/19 Concetta Acevedo MD [address] [place] [address] Surgeon NEUROLOGICAL SURGERY 12/16/22 Jeff Grace MD [address] [place] [address] Consulting Physician INTERNAL MEDICINE 02/11/23 Brit Gonzáles MD [address] [place] [address] Consulting Physician CARDIOVASCULAR DISEASE 12/29/23 documented as of this encounter
--- OUTSIDE RECORDS SUMMARY | 2024-09-03 20:36 | XMS_ITS | Encounter Summary ---
Author Organization [facility] Address [facility] [place] [address] [place] [address] Care Team Providers Care Guest Relations Manager Name Role Phone Megan Infante MD Primary Care Provider [phone] Sharmila Davis APRN, NP-C Unavailable Zaki Ortiz MD Unavailable [phone] Concetta Acevedo MD Unavailable + [phone] Jeff Grace MD Unavailable Brit Goználes MD Unavailable Reason for Visit * Reason Comments Heart Problem Encounter Details Date Type Department Care Team (Late st Contact Info) Description 04/03/2024 12:30 PM CDT Office Visit [facility] [place] [address] Brit Gonzáles MD [address] [place] [address] Heart Problem Social History Tobacco Use [...] How often do you attend scientology or alevism serv ices? 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: stable, will c/t to monitor # severe [...] chronic heart failure, unspecified heart failure type ([facility]) Anxiety Aortic valve stenosis Arthritis Asthma, mild persistent ([facility]) 04/06/2021 Atrial fibrillation ([facility]) s/p PVI/WACA 10/2015 Bilateral leg pain Carotid disease, bilateral ([facility]) CHF (congestive heart failure) ([facility]) Claudication ([facility] COPD (chronic obstructive pulmonary disease) ([facility]) Coronary artery disease Diabetes mellitus, type II ([facility]) Edema 04/19/2018 2+ pitting History of blood transfusion Hyperlipidemia Hypertension LV dysfunction Non-pressure chronic ulcer of left calf limited to breakdown of skin ([facility]) 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 breakdown of skin ([facility]) Osteoarthritis PAD (peripheral artery disease) ([facility]) Pneumonia Restless leg syndrome S/P aortic valve replacement with bioprosthetic valve 2013 SOB (shortness of breath) Stroke ([facility]) Varicose veins of bilateral lower extremities with other complications Weight gain with edema Past Surgical History: Procedure Laterality Date APPENDECTOMY CARDIAC VALVE REPLACEMENT 1999 CARDIAC VALVE REPLACEMENT 2013 CARDIOVERSION EXTERNAL 10/01/2015 CARDIOVERSION EXTERNAL 04/14/2012 COLONOSCOPY N/A 03/18/2021 COLONOSCOPY (Incomplete) performed by Kilo [facility]arro MD at [facility] OR COLONOSCOPY N/A 01/27/2022 COLONOSCOPY [...] st Contact Info) Description 09/25/2024 2:00 PM REFRACTORY MIXER Appointment [facility] [address] [facility] [place] [address] Zayra Powell, [facility] [address] [place] [address] 10/16/2024 3:30 PM REFRACTORY MIXER Office Visit [facility] [facility] [address] [facility] [place] [place] [address] Brit Gonzáles MD [address] [place], [place] [phone] documented as of this encounter Goals Goal Patient Goal Type Associated Problems Recent Progress Patient-Stated? Author Family - family caregiver with be involved in care transitions and discharge planning Lifestyle No Karen Quezada, YUNI documented as of this encounter Visit Diagnoses Diagnosis Coronary artery disease involving stockbridge coronary artery of [place] heart without angina pectoris- Primary Chronic combined systolic and diastolic congestive heart failure ([facility]) Chronic combined systolic and diastolic heart failure Chronic atrial fibrillation ([facility]) Atrial fibrillation S/P aortic valve replacement with bioprosthetic valve Heart valve replaced by other means documented in this encounter Additional Health Concerns Assessment Noted Time PHQ-9 Depression Total Score: 0 12/02/19 22 1:18 PM CDT documented as of this encounter Care Teams Guest Relations Manager Relationship Specialty Start Date End Date Megan Infante MD [address] [place] [address] PCP - General FAMILY PRACTICE 04/06/16 Sharmila Davis, DENTURE PROCESSOR, DENTAL LABORATORY ASSISTANT-C [address] [phone] NURSE PRACTITIONER 01/04/17 04/03/24 Zaki Ortiz MD [address] [address] Consulting Physician PULMONARY DISEASE 07/12/19 Concetta Acevedo MD [address] [place] [address] Surgeon NEUROLOGICAL SURGERY 12/16/22 Jeff Grace MD [address] [place] [address] Consulting Physician INTERNAL MEDICINE 02/11/23 Brit Gonzáles MD [address] [place], [place] [address] Consulting Physician CARDIOVASCULAR DISEASE 12/29/23 documented as of this encounter
--- OUTSIDE RECORDS SUMMARY | 2024-09-03 20:36 | XMS_ITS | Encounter Summary ---
Author Organization [facility] Address [facility]6 [facility] [place] [address] [place] [address] Care Team Providers Care Trigonometry Tutor Name Role Phone Megan Infante MD Primary Care Provider [phone] Sharmila Davis APRN, NP-C Unavailable [phone] Zaki Ortiz MD Unavailable [phone] Concetta Acevedo MD Unavailable + [phone] Jeff Grace MD Unavailable Brit Gonzáles MD Unavailable Encounter Details Date Type Department Care Team (Late st Contact Info) Description 02/28/2024 12:55 PM CDT - 02/28/2024 11:59 PM CDT Hospital Encounter [facility] [address] [place] [address] Zayra Powell, [facility] [address] [place] [address] Discharge Disposition: Home or Self Care (Routine Discharge) Social History Tobacco Use Types Packs/Day Years Used Date Smoking Tobacco: Former Smokeless Tobacco: Former Chew Alcohol Use Standard Drinks/Week Comments Yes 0 (1 standard drink = 0.6 oz pur e alcohol) 4 beers per week [facility] Utilities Answer Date Recorded In the past 12 months has [employer], gas, oil, or water company threatened [...] st Contact Info) Description 09/25/2024 2:00 PM REFINERY OPERATOR ASSISTANT Appointment [facility] [address] [facility] [place] [address] Zayra Powell, PLANTING MATERIAL UNLOADER [address] [facility] [place] [address] 10/16/2024 3:30 PM REFINERY OPERATOR ASSISTANT Office Visit [facility] [address] [facility] [place] [address] Brit Gonzáles MD [address] [place] [address] documented as of this encounter [...] documented as of this encounter Care Teams Trigonometry Tutor Relationship Specialty Start Date End Date Megan Infante MD [address] [facility] [place] [address] PCP - General FAMILY PRACTICE 04/06/16 Sharmila Davis APRN, FLIGHT READINESS TECHNICIAN-C [address] [facility] [address] [place] [address] NURSE PRACTITIONER 01/04/17 04/03/24 Zaki Ortiz MD [address] [facility] [address] [place] [address] Consulting Physician PULMONARY DISEASE 07/12/19 Concetta Acevedo MD [address] [place] [address] Surgeon NEUROLOGICAL SURGERY 12/16/22 Jeff Grace MD [address] [place] [address] Consulting Physician INTERNAL MEDICINE 02/11/23 Brit Gonzáles MD [address] [place] [address] Consulting Physician CARDIOVASCULAR DISEASE 12/29/23 documented as of this encounter
--- OUTSIDE RECORDS SUMMARY | 2024-09-03 20:36 | XMS_ITS | Encounter Summary ---
Author Organization [facility] Address [facility]6 [facility] [place] [address] [place] [address] Care Team Providers Care Supervisor Pairing And Inspecting Name Role Phone Megan Infante MD Primary Care Provider [phone] Zaki Ortiz MD Unavailable [phone] Concetta Acevedo MD Unavailable + [phone] Jeff Grace MD Unavailable Brit Gonzáles MD Unavailable Encounter Details Date Type Department Care Team (Late st Contact Info) Description 04/11/2024 2:02 PM CDT - 04/11/2024 11:59 PM CDT Hospital Encounter [facility] [address] [place] [address] Zayra Powell, [facility] [address] [place] [address] Discharge Disposition: Home or Self Care (Routine Discharge) Social History Tobacco Use Types Packs/Day Years Used Date Smoking Tobacco: Former Smokeless Tobacco: Former Chew Alcohol Use Standard Drinks/Week Comments Yes 0 (1 standard drink = 0.6 oz pur e alcohol) 4 beers per week [facility] Utilities Answer Date Recorded In the past 12 months has e [employer], gas, oil, or water [employer] threatened to shut off services in your [...] How often do you attend latter-day or faith serv ices? Patient declined 02/16/2023 Do you [...] move on to questions 3-9 0 12/01/2021 [facility] - Occupational Stress Questionnaire Answer Date [...] st Contact Info) Description 09/25/2024 2:00 PM JAVA LEAD ARCHITECT Appointment [facility] [address] [place] [address] Zayra Powell, SECURITY FLEX UTILITY OFFICER [address] [place] [address] 10/16/2024 3:30 PM JAVA LEAD ARCHITECT Office Visit [facility] [address] [place] [phone] Brit Gonzáles MD [address] [place] [address] documented as of this encounter Goals Goal [...] as of this encounter Care Teams Supervisor Pairing And Inspecting Relationship Specialty Start Date End Date Megan Infante MD [address] [place] [address] PCP - General FAMILY PRACTICE 04/06/16 Zaki Ortiz MD [address] [place] [address] Consulting Physician PULMONARY DISEASE 07/12/19 Concetta Acevedo MD [address] [place] [address] Surgeon NEUROLOGICAL SURGERY 12/16/22 Jeff Grace MD [address] [place] [address] Consulting Physician INTERNAL MEDICINE 02/11/23 Brit Gonzáles MD [address] [place] [address] Consulting Physician CARDIOVASCULAR DISEASE 12/29/23 documented as of this encounter
--- OUTSIDE RECORDS SUMMARY | 2024-09-03 20:36 | XMS_ITS | Encounter Summary ---
Author Organization [facility] Address [facility] [place] [address] [place] [address] Care Team Providers Care Funeral Location Manager Name Role Phone Megan Infante MD Primary Care Provider [phone] Sharmila Dvais APRN, NP-C Unavailable [phone] Zaki Ortiz MD Unavailable [phone] Concetta Acevedo MD Unavailable + [phone] Jeff Grace MD Unavailable Brit Gonzáles MD Unavailable Encounter Details Date Type Department Care Team (Latest Contact Info) Description 02/28/2024 Travel Social History Tobacco Use Types Packs/Day Years Used Date Smoking Tobacco: Former Smokeless Tobacco: Former Chew Alcohol Use Standard Drinks/Week Comments Yes 0 (1 standard drink = 0.6 oz pur e alcohol) 4 beers per week [facility] Utilities Answer Date Recorded In the past 12 months has [employer], [employer], oil, or water [employer] threatened to shut off services in your [...] How often do you attend episcopalian or pentecostalism serv ices? Patient declined 02/16/2023 Do you [...] Date Author Status No 07/12/2023 6:58 PM METROPOLITAN EDITOR Liliana Gutierrez, YUNI Active documented in this encounter Plan of Treatment Upcoming Encounters Date Type Department Care Team (Late st Contact Info) Description 09/25/2024 2:00 PM [address]ITAN EDITOR Appointment [facility] [address] [facility] [place] [address] Zayra Powell, FIRE CREW WORKER [address] [facility] [place] [address] 10/16/2024 3:30 PM METROPOLITAN EDITOR Office Visit [facility] [address] [facility] [place] [address] Brit Gonzáles MD [address] [place] [address] documented as of this encounter Goals [...] documented as of this encounter Care Teams Funeral Location Manager Relationship Specialty Start Date End Date Megan Infante MD [address] [facility] [place] [address] PCP - General FAMILY PRACTICE 04/06/16 Sharmila Davis APRN, MICROFILM TECHNICIAN-C [address] [place] [address] NURSE PRACTITIONER 01/04/17 04/03/24 Zaki Ortiz MD [address] [place] [address] Consulting Physician PULMONARY DISEASE 07/12/19 Concetta Acevedo MD [address] [address] Surgeon NEUROLOGICAL SURGERY 12/16/22 Jeff Grace MD [address] [place] [address] Consulting Physician INTERNAL MEDICINE 02/11/23 Brit Gonzáles MD 619 [place], [place] [address] Consulting Physician CARDIOVASCULAR DISEASE 12/29/23 documented as of this encounter
--- OUTSIDE RECORDS SUMMARY | 2024-09-03 20:36 | XMS_ITS | Encounter Summary ---
Author Organization [facility] Address [facility] [place] [address] [place] [address] Care Team Providers Care Tube Teller Name Role Phone Megan Infante MD Primary Care Provider [phone] Sharmila Davis APRN, NP-C Unavailable [phone] Zaki Ortiz MD Unavailable [phone] Concetta Acevedo MD Unavailable + [phone] Jeff Grace MD Unavailable Brit Gonzáles MD Unavailable Encounter Details Date Type Department Care Team (Latest Contact Info) Description 04/03/2024 Travel Social History Tobacco Use Types Packs/Day Years Used Date Smoking Tobacco: Former Smokeless Tobacco: Former Chew Alcohol Use Standard Drinks/Week Comments Yes 0 (1 standard drink = 0.6 oz pur e alcohol) 4 beers per week [facility] Utilities Answer Date Recorded In the past 12 months has [employer], [employer], oil, or water [employer] threatened to shut off services in [...] How often do you attend sikhism or buddhist serv ices? Patient declined 02/16/2023 [...] Date Author Status No 07/12/2023 6:58 PM INSURANCE BILLING SPECIALIST Liliana Gutierrez, YUNI Active documented in this encounter Plan of Treatment Upcoming Encounters Date Type Department Care Team (Late st Contact Info) Description 09/25/2024 2:00 PM INSURANCE BILLING SPECIALIST Appointment [facility] [address] [facility] [place] [address] Zayra Powell, CONTROL PANEL OPERATOR CRUDE UNIT 12[address] [facility] [place] [address] 10/16/2024 3:30 PM INSURANCE BILLING SPECIALIST Office Visit [facility] [address] [facility] [address] Brit Gonzáles MD [address] [place] [address] documented as of this encounter Goals [...] documented as of this encounter Care Teams Tube Teller Relationship Specialty Start Date End Date Megan Infante MD [address] [facility] [place] [address] PCP - General FAMILY PRACTICE 04/06/16 Sharmila Davis APRN, FITNESS AND WELLNESS COORDINATOR-C [address] [place] [address] NURSE PRACTITIONER 01/04/17 04/03/24 Zaki Oritz MD [address] [place] [address] Consulting Physician PULMONARY DISEASE 07/12/19 Concetta Acevedo MD [address] [place] [address] Surgeon NEUROLOGICAL SURGERY 12/16/22 Jeff Grace MD [address] [place] [address] Consulting Physician INTERNAL MEDICINE 02/11/23 Brit Gonzáles MD 619 [place], [place] [address] Consulting Physician CARDIOVASCULAR DISEASE 12/29/23 documented as of this encounter
--- OUTSIDE RECORDS SUMMARY | 2024-09-03 20:36 | XMS_ITS | Encounter Summary ---
Author Organization [facility] Address [facility] [facility] [place] [address] [place] [address] Care Team Providers Care Tension Worker Name Role Phone Megan Infante MD Primary Care Provider [phone] Zaki Ortiz MD Unavailable [phone] Concetta Acevedo MD Unavailable + [phone] Jeff Grace MD Unavailable Brit Gonzáles MD Unavailable Encounter Details Date Type Department Care Team (Late st Contact Info) Description 04/20/2024 12:52 PM CDT - 04/20/2024 11:59 PM CDT Hospital Encounter [facility] [address] [place] [address] Zayra Powell, [facility] [address] [place] [address] Discharge Disposition: Home or Self Care (Routine Discharge) Social History Tobacco Use Types Packs/Day Years Used Date Smoking Tobacco: Former Passive Smoke Exposure: Past Smokeless Tobacco: Former Chew Alcohol Use Standard Drinks/Week Comments Yes 0 (1 standard drink = 0.6 oz pur e alcohol) 4 beers per week [facility] Utilities Answer Date Recorded In the past 12 months has e electric, gas, oil, or water [employer] threatened to shut off services in your [...] declined 02/16/2023 How often do you attend roman catholic or islam serv ices? Patient declined 02/16/2023 Do you belong to any clubs o r organizations such as roman catholic groups, unions, fraternal or athletic groups, or [...] 3-9 0 12/01/2021 [facility] [...] Contact Info) Description 09/25/2024 2:00 PM GRAIN HANDLER Appointment [facility] [address] [place] [address] Zayra Powell, SHRUB PLANTER [address] [place] [address] 10/16/2024 3:30 PM GRAIN HANDLER Office Visit [facility] [address] [place] [address] Brit Gonzáles MD [address] [place] [address] documented as of this encounter Goals Goal [...] documented as of this encounter Care Teams Tension Worker Relationship Specialty Start Date End Date Megan Infante MD [address] [facility] [place] [address] PCP - General FAMILY PRACTICE 04/06/16 Zaki Ortiz MD 12[address] [facility] [place] [address] Consulting Physician PULMONARY DISEASE 07/12/19 Concetta Acevedo MD [address] [place] [address] Surgeon NEUROLOGICAL SURGERY 12/16/22 Jeff Grace MD [address] [place] [address] Consulting Physician INTERNAL MEDICINE 02/11/23 Brit Gonzáles MD [address] [place] [address] Consulting Physician CARDIOVASCULAR DISEASE 12/29/23 documented as of this encounter
--- OUTSIDE RECORDS SUMMARY | 2024-09-03 20:36 | XMS_ITS | Encounter Summary ---
Author Organization [facility] Address [facility]6 [facility] [place], [place] [address] [place] [address] Care Team Providers Care Provider Enrollment Specialist Name Role Phone Megan Infante MD Primary Care Provider [phone] Zaki Ortiz MD Unavailable [phone] Concetta cAevedo MD Unavailable + [phone] Jeff Grace MD Unavailable Brit Gonzáles MD Unavailable Reason for Referral * Imaging (Routine) - Closed Specialty Diagnoses / Procedures Referred By Yung sequeira Referred To Contact RADIOLOGY Diagnoses Chronic venous insufficiency Varicose veins of bilateral lower extremities with other complications PAD (peripheral artery disease) ([facility]) Procedures USV STELLA LTD ELZA Jeff Grace MD [address] [place] [address] Phone: tel: fax: Referral ID Status Reason Start Date Expiration Date Visits Re quested Visits Authorized [id number] Closed 04/17/2024 05/18/2025 1 1 * Imaging (Routine) - Pending Review Specialty Diagnoses / Procedures Referred By Yung sequeira Referred To Contact RADIOLOGY Diagnoses Chronic venous insufficiency Varicose veins of bilateral lower extremities with other complications Procedures USV VENOUS REFLUX LOW ELZA Jeff Grace MD [address] [place] [address] Phone: tel: fax: Referral ID Status Reason Start Date Expiration Date V isits Requested Visits Authorized [id number] Pending Review 04/17/2024 05/18/2025 1 1 Reason for Visit * Reason Comments Follow Up Wounds BLE draining, open, nonhealing and very painful with numbness at times Encounter Details Date Type Department Care Team (Late st Contact Info) Description 04/17/2024 2:45 PM CDT [facility] [address] [place] [phone] Jeff Grace MD [address] [place] [address] Follow Up (Wounds BLE draining, open, nonhealing [...] Recorded In the past 12 months has [facility] [employer], gas, oil, or water [employer] threatened to shut off services in your [...] How often do you attend temple or jain serv ices? Patient declined 02/16/2023 [...] 12/01/2021 [facility]at ional [facility] - Occupational Stress Questionnaire Answer Date [...] Assessment Author Status No 07/12/2023 6:58 PM Lilaina Layne RN Active * Because of a [...] have STELLA vascular testing when able in [place]. Please follow up with this office in [...] chronic heart failure, unspecified heart failure type ([facility]) Anxiety Aortic valve stenosis Arthritis Asthma, mild persistent ([facility]) 04/06/2021 Atrial fibrillation ([facility]) s/p PVI/[facility] 10/2015 Bilateral leg pain Carotid disease, bilateral ([facility]) CHF (congestive heart failure) ([facility]) Claudication ([facility]) COPD (chronic obstructive pulmonary disease) ([facility]) Coronary artery disease Diabetes mellitus, type II ([facility]) Edema 04/19/2018 2+ pitting History of blood transfusion Hyperlipidemia Hypertension LV dysfunction Non-pressure chronic ulcer of left calf limited to breakdown of skin ([facility]) 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 breakdown of skin ([facility]) Osteoarthritis PAD (peripheral artery disease) ([facility]) Pneumonia Restless leg syndrome S/P aortic valve replacement with bioprosthetic valve 2013 SOB (shortness of breath) Stroke ([facility]) Varicose veins of bilateral lower extremities with other complications Weight gain with edema Past Surgical History: Procedure Laterality Date APPENDECTOMY CARDIAC VALVE REPLACEMENT 1999 CARDIAC VALVE REPLACEMENT 2013 CARDIOVERSION EXTERNAL 10/01/2015 CARDIOVERSION EXTERNAL 04/14/2012 COLONOSCOPY N/A 03/18/2021 COLONOSCOPY (Incomplete) performed by Kilo Navarro MD at [facility] OR COLONOSCOPY N/A 01/27/2022 COLONOSCOPY WITH COLD SNARE POLYPECTOMY performed by Kilo Navarro MD at [facility] OR HIP ARTHROPLASTY Left KNEE [...] st Contact Info) Description 09/25/2024 2:00 PM HAZMAT TRUCK DRIVER Appointment [facility] [address] [place] [address] Zayra Powell FNP [address] [place] [address] 10/16/2024 3:30 PM HAZMAT TRUCK DRIVER Office Visit [facility] [address] [place] [address] Brit Gonzáles MD [address] [place] [address] Scheduled Orders Name Type Priority Associated Diagnoses [...] STELLA ?Vascular Report Pat.Name: ??Mendez Lay ?Pat.ID: ?[id number] ? St.Date: ?? 04/27/2024 ? Refer.: ??[facility] Exam Time: 2:19:00 PM ? Study Type:OUTREACH ART DOPPLER - STELLA Height: ?66 in ?Age: ??1955,68Y ? Sex: ? M ? Sonogrphr: jl Gupta rdms, rvt, rdcs Pat. Stat.:Outpatient ? Reason for Study:Chronic venous insufficiency, Varicose veins of bilateral lower extremities with other complications, PAD (peripheral artery disease), Wound BLE Procedures: Study performed at [place], [place] and interpreted by [facility]. ++++++++++++++++++++++++++++++++++++ SUMMARY: ++++++++++++++++++++++++++++++++++++ STELLA Rt: [...] STELLA Vascular Report Pat.Name: Mendez Lay Pat.ID: [id number] .Date: 04/27/2024 Refer.MD: Marco A, [facility] Exam Time: 2:19:00 PM Study Type:OUTREACH ART DOPPLER - STELLA Height: 66 in Age: 11 1955,68Y Sex: M Sonogrphr: jl Gupta rdms, rvt, rdcs Pat. Stat.:Outpatient Reason for Study:Chronic venous insufficiency, Varicose veins of bilateral lower extremities with other complications, PAD (peripheral artery disease), Wound BLE Procedures: Study performed at [place], [place] and interpreted by [facility]. ++++++++++++++++++++++++++++++++++++ SUMMARY: ++++++++++++++++++++++++++++++++++++ STELLA Rt: [...] as of this encounter Care Teams Provider Enrollment Specialist Relationship Specialty Start Date End Date Megan Infante MD [address] [place] [address] PCP - General FAMILY PRACTICE 04/06/16 Zaki Ortiz MD [address] [place] [address] Consulting Physician PULMONARY DISEASE 07/12/19 Concetta Acevedo MD [address] [place] [address] Surgeon NEUROLOGICAL SURGERY 12/16/22 Jeff Grace MD [address] [place] [address] Consulting Physician INTERNAL MEDICINE 02/11/23 Brit Gonzáles MD 9 [place] [address] Consulting Physician CARDIOVASCULAR DISEASE 12/29/23 documented as of this encounter
--- OUTSIDE RECORDS SUMMARY | 2024-09-03 20:36 | XMS_ITS | Encounter Summary ---
Author Organization [facility] Address [facility] [place] [address] [place] [address] Care Team Providers Care Master Barber Name Role Phone Megan Infante MD Primary Care Provider [phone] Zaki Ortiz MD Unavailable [phone] Concetta Acevedo MD Unavailable + [phone] Jeff Grace MD Unavailable Brit Gonzáles MD Unavailable Encounter Details Date Type Department Care Team (Late st Contact Info) Description 04/18/2024 1:37 PM CDT - 04/18/2024 11:59 PM CDT Hospital Encounter [facility] [address] [place] [address] Zayra Powell, [facility] [address] [place] [address] Discharge Disposition: Home or Self Care (Routine [...] has e electric, gas, oil, or water [employer] threatened to shut off services in your [...] How often do you attend rastafarian or baptist serv ices? Patient declined 02/16/2023 [...] on to questions 3-9 0 12/01/2021 [facility] - Occupational Stress Questionnaire [...] st Contact Info) Description 09/25/2024 2:00 PM MODEL MAKER PLASTER Appointment [facility] [address] [place] [address] Zayra Powell, SENIOR NET DEVELOPER ARCHITECT [address] [place] [address] 10/16/2024 3:30 PM MODEL MAKER PLASTER Office Visit [facility] [address] [place] [address] [address] Brit Gonzáles MD [address] [place] [address] documented as of this encounter Goals Goal [...] documented as of this encounter Care Teams Master Barber Relationship Specialty Start Date End Date Megan Infante MD [address] [facility] [place] [phone] PCP - General FAMILY PRACTICE 04/06/16 Zaki Ortiz MD [address] [place] [phone] Consulting Physician PULMONARY DISEASE 07/12/19 Romeo-Concetta Pond MD [address] [place] [address] Surgeon NEUROLOGICAL SURGERY 12/16/22 Jeff Grace MD [address] [place] [address] Consulting Physician INTERNAL MEDICINE 02/11/23 Brit Gonzáles MD [address] [place] [address] Consulting Physician CARDIOVASCULAR DISEASE 12/29/23 documented as of this encounter
--- OUTSIDE RECORDS SUMMARY | 2024-09-03 20:36 | XMS_ITS | Encounter Summary ---
Author Organization [facility] Address [facility] [place] [address] [place] [address] Care Team Providers Care Parole Or Probation Officer Name Role Phone Megan Infante MD Primary Care Provider [phone] Zaki Ortiz MD Unavailable [phone] Concetta Acevedo MD Unavailable + [phone] Jeff Grace MD Unavailable Brit Gonzáles MD Unavailable Encounter Details Date Type Department Care Team (Latest Contact Info) Description 04/06/2024 Travel Social History Tobacco Use Types Packs/Day Years Used Date Smoking Tobacco: Former Smokeless Tobacco: Former Chew Alcohol Use Standard Drinks/Week Comments Yes 0 (1 standard drink = 0.6 oz pur e alcohol) [address] [facility] Utilities Answer Date Recorded In the past 12 months has [facility] [employer], [employer], oil, or water [employer] threatened to shut off services in your [...] How often do you attend mandaen or cheondoism serv ices? Patient declined 02/16/2023 [...] move on to questions 3-9 0 12/01/2021 [facility] of Occupat ional Health - Occupational [...] Date Author Status No 07/12/2023 6:58 PM MEDICAL ANTHROPOLOGY DIRECTOR Liliana Gutierrez RN Active documented in this encounter Plan of Treatment Upcoming Encounters Date Type Department Care Team (Late st Contact Info) Description 09/25/2024 2:00 PM MEDICAL ANTHROPOLOGY DIRECTOR Appointment [facility] [address] [place] [address] Zarya Powell, PRODUCTION STATISTICAL CLERK [address] [place] [address] 10/16/2024 3:30 PM MEDICAL ANTHROPOLOGY DIRECTOR Office Visit [facility] [facility] [address] [place] [address] Brit Gonzáles MD [address] [place] [address] documented as of this encounter [...] documented as of this encounter Care Teams Parole Or Probation Officer Relationship Specialty Start Date End Date Megan Infante MD [address] [place] [address] PCP - General FAMILY PRACTICE 04/06/16 Zaki Ortiz MD [address] [place] [address] Consulting Physician PULMONARY DISEASE 07/12/19 Concetta Acevedo MD [address] [place] [address] Surgeon NEUROLOGICAL SURGERY 12/16/22 Jeff Grace MD [address] [place] [address] Consulting Physician INTERNAL MEDICINE 02/11/23 Brit Gonzáles MD [address] [place] [address] Consulting Physician CARDIOVASCULAR DISEASE 12/29/23 documented as of this encounter
--- OUTSIDE RECORDS SUMMARY | 2024-09-03 20:36 | XMS_ITS | Encounter Summary ---
Author Organization [facility] Address [facility]6 [facility] [place] [address] [place] [address] Care Team Providers Care Supervisor Agency Appointments Name Role Phone Megan Infante MD Primary Care Provider [phone] Zaki Ortiz MD Unavailable [phone] Concetta Acevedo MD Unavailable + [phone] Jeff Grace MD Unavailable Brit Gonzáles MD Unavailable Encounter Details Date Type Department Care Team (Latest Contact Info) Description 04/17/2024 Travel Social History Tobacco Use Types Packs/Day Years Used Date Smoking Tobacco: Former Passive Smoke Exposure: Past Smokeless Tobacco: Former Chew Alcohol Use Standard Drinks/Week Comments Yes 0 (1 standard drink = 0.6 oz pur e alcohol) 4 beers per week [facility] Utilities Answer Date Recorded In the past 12 months has [facility] [employer], gas, oil, or water [employer] threatened to shut off services in your [...] How often do you attend orthodox or evangelical serv ices? Patient declined 02/16/2023 Do you [...] 3-9 0 12/01/2021 [facility] Occupat ional Health - Occupational Stress [...] Date Author Status No 07/12/2023 6:58 PM CARPENTER/LABOR Liliana Gutierrez, RN Active documented in this encounter Plan of Treatment Upcoming Encounters Date Type Department Care Team (Late st Contact Info) Description 09/25/2024 2:00 PM CARPENTER/LABOR Appointment [facility] [address] [facility] [place] [address] Zayra Powell, GREASER HELPER [address] [place] [address] 10/16/2024 3:30 PM CARPENTER/LABOR Office Visit [facility] [address] [facility] [place] [address] Brit Gonzáles MD [address] [place] [address] documented as of this encounter [...] as of this encounter Care Teams Supervisor Agency Appointments Relationship Specialty Start Date End Date Megan Infante MD [address] [place] [address] PCP - General FAMILY PRACTICE 04/06/16 Zaki Ortiz MD [address] [address] Consulting Physician PULMONARY DISEASE 07/12/19 Concetta Acevedo MD [address] [place] [address] Surgeon NEUROLOGICAL SURGERY 12/16/22 Jeff Grace MD [address] [place] [address] Consulting Physician INTERNAL MEDICINE 02/11/23 Brit Gonzáles MD [address] [place] [address] Consulting Physician CARDIOVASCULAR DISEASE 12/29/23 documented as of this encounter
--- OUTSIDE RECORDS SUMMARY | 2024-09-03 20:36 | XMS_ITS | Encounter Summary ---
Author Organization [facility] Address [facility]6 [facility] [place] [address] [place] [address] Care Team Providers Care Mold Stacker Name Role Phone Megan Infante MD Primary Care Provider [phone] Sharmila Davis APRN, NP-C Unavailable [phone] Zaki Ortiz MD Unavailable [phone] Concetta Acevedo MD Unavailable + [phone] Jeff Grace MD Unavailable Brit Gonzáles MD [...] Recorded In the past 12 months has [employer], [employer], oil, or water [employer] threatened to shut off services in your [...] How often do you attend rastafarian or holiness serv ices? Patient declined 02/16/2023 [...] Date Author Status No 07/12/2023 6:58 PM CORRECTIONS SERGEANT Liliana Gutierrez, YUNI Active documented in this encounter Plan of Treatment Upcoming Encounters Date Type Department Care Team (Late st Contact Info) Description 09/25/2024 2:00 PM CORRECTIONS SERGEANT Appointment [facility] [address] [facility] [address] Zayra Powell, HUMAN PERFORMANCE PROFESSOR [address] [facility] [place] [address] 10/16/2024 3:30 PM CORRECTIONS SERGEANT Office Visit [facility] [address] [address] Brit Gonzáles MD [address] [place] [address] documented as of this encounter Goals [...] documented as of this encounter Care Teams Mold Stacker Relationship Specialty Start Date End Date Megan Infante MD [address] [facility] [place] [address] PCP - General FAMILY PRACTICE 04/06/16 Sharmila Davis APRN, SUPERVISOR SOUND TECHNICIAN-C [address] [place] [address] NURSE PRACTITIONER 01/04/17 04/03/24 Zaki Ortiz MD [address] [place] [address] Consulting Physician PULMONARY DISEASE 07/12/19 Concetta Acevedo MD [address] [place] [address] Surgeon NEUROLOGICAL SURGERY 12/16/22 Jfef Grace MD [address] [place] [address] Consulting Physician INTERNAL MEDICINE 02/11/23 Brit Gonzáles MD [address] [place], [place] [phone] Consulting Physician CARDIOVASCULAR DISEASE 12/29/23 documented as of this encounter
--- OUTSIDE RECORDS SUMMARY | 2024-09-03 20:37 | XMS_ITS | Encounter Summary ---
Author Organization [facility] Address [facility]6 [facility] [place] [address] [place] [address] Care Team Providers Care Svp Operations Name Role Phone Piyush Pandey MD Unavailable Unavailabl e Megan Infante MD Primary Care Provider [phone] Sharmila Davis APRN, NP-C Unavailable [phone] Zaki Ortiz MD Unavailable [phone] Concetta Acevedo MD Unavailable + [phone] Jeff Grace MD Unavailable Encounter Details Date Type Department Care Team (Latest Contact Info) Description 07/22/2023 Travel Social History Tobacco Use Types Packs/Day Years Used Date Smoking Tobacco: Former Smokeless Tobacco: Former Chew Alcohol Use Standard Drinks/Week Comments Yes 0 (1 standard drink = 0.6 oz pur e alcohol) 6 beers per week [facility] Utilities Answer Date Recorded In the past 12 months has No [employer], gas, oil, or water [employer] threatened to shut off services in your [...] How often do you attend episcopalian or orthodox serv ices? Patient declined 02/16/2023 [...] Date Author Status No 07/12/2023 6:58 PM VASCULAR NURSE Liliana Gutierrez, RN Active documented in this encounter Plan of Treatment Upcoming Encounters Date Type Department Care Team (Late st Contact Info) Description 09/25/2024 2:[address] [facility] [address] [facility] [place] [address] Zayra Powell, DIVISION SERGEANT [address] [place] [address] 10/16/2024 3:30 PM VASCULAR NURSE Office Visit [facility] [address] [facility] [place] [address] Brit Gonázles MD 619 [place] [address] documented as of this encounter [...] documented as of this encounter Care Teams Svp Operations Relationship Specialty Start Date End Date Megan Infante MD [address] [place] [address] PCP - General FAMILY PRACTICE 04/06/16 Piyush Pandey MD [place] Nipple Machine Operator CARDIOVASCULAR DISEASE 04/06/16 12/28/23 Sharmila Davis APRN, CONCRETE PIPE PLANT SUPERVISOR-C [address] [place] [address] [address] [place] [address] NURSE PRACTITIONER 01/04/17 04/03/24 Zaki Ortiz MD [address] [facility] [address] [place] [address] Consulting Physician PULMONARY DISEASE 07/12/19 Concetta Acevedo MD [address] [place] [address] Surgeon NEUROLOGICAL SURGERY 12/16/22 eJff Grace MD 619 [place] [address] Consulting Physician INTERNAL MEDICINE 02/11/23 documented as of this encounter
--- OUTSIDE RECORDS SUMMARY | 2024-09-03 20:37 | XMS_ITS | Encounter Summary ---
Author Organization [facility] Address [address] [place] [address]. [place] [address] [place] [address] Care Team Providers Care Tie Presser Name Role Phone Piyush Pandey MD Unavailable Unavailabl e Megan Infante MD Primary Care Provider [phone] Sharmila Davis APRN RECYCLING ASSISTANT-C Unavailable [phone] Zaki Ortiz MD Unavailable [phone] Concetta Acevedo MD Unavailable + [phone] Jeff Grace MD Unavailable Encounter Details Date Type Department Care Team (Late st Contact Info) Description 07/22/2023 12:53 PM FLOOR DIRECTOR - 07/22/2023 11:59 PM FLOOR DIRECTOR Hospital Encounter [facility] [address] [place] [address] Zayra Powell, [facility] [address] [place] [address] Discharge Disposition: Home or Self Care (Routine [...] How often do you attend lutheran or yazidism serv ices? Patient declined 02/16/2023 [...] on to questions 3-9 0 12/01/2021 [facility] of Occupat ional Health - [...] tablet (40 mg total) by mouth daily. sertraline 50 MG tablet Take 1 tablet (50 mg total) by mouth daily. 10/03/2021 traZODone (DESYREL) 150 MG tablet Take 2 tablets (300 mg total) by mouth nightly at bedtime. 03/24/2022 TRELEGY ELLIPTA 100-62.5-25 MCG/ACT AEROSOL POWDER, BREATH ACTIVATED Inhale 1 puff into the lungs daily. 12/23/2022 aspirin 81 MG chewable tablet Chew 1 tablet (81 mg total) by mouth daily. 04/18/2014 4 clindamycin (CLEOCIN) 300 MG capsule Take 1 [...] (two) times daily. 90 capsule 07/16/2023 4 HYDROcodone-acet aminophen (NORCO) 10-325 MG tabletIndication s:Acute Pain < 7 Day Supply Take 1 tablet by mouth every 6 (six) hours as needed. Indications: Acute Pain < 7 Day Supply 15 tablet 07/16/2023 5 insulin detemir (LEVEMIR FLEXPEN) 100 UNIT/ML PEN Inject 15 Units into the skin nightly at bedtime. 9 mL 02/09/2023 4 losartan (COZAAR) 50 MG tablet Take 1 [...] Contact Info) Description 09/25/2024 2:00 PM FLOOR DIRECTOR Appointment [facility] [address] [place] [address] Zayra Powell, [facility] [address] [place] [address] 10/16/2024 3:30 PM FLOOR DIRECTOR Office Visit [facility] [address] [place] [address] Brit Gonzáles MD 619 [place] [address] documented as of this encounter Goals Goal [...] documented as of this encounter Care Teams Tie Presser Relationship Specialty Start Date End Date Megan Infante MD [address] [facility] [place] [address] PCP - General FAMILY PRACTICE 04/06/16 Piyush Pandey MD [place] Senior Speech Pathologist CARDIOVASCULAR DISEASE 04/06/16 12/28/23 Sharmila Davis APRN, RECYCLING ASSISTANT-C [address] [address] NURSE PRACTITIONER 01/04/17 04/03/24 Zaki Ortiz MD [address] [place] [address] Consulting Physician PULMONARY DISEASE 07/12/19 Concetta Acevedo MD [address] [place] [address] Surgeon NEUROLOGICAL SURGERY 12/16/22 Jeff Grace MD 9 [place], [place] [address]25[address] Consulting Physician INTERNAL MEDICINE 02/11/23 documented as of this encounter
--- OUTSIDE RECORDS SUMMARY | 2024-09-03 20:37 | XMS_ITS | Encounter Summary ---
Author Organization [facility] Address [address] [place] [address]. [place] [address] [place] [address] Care Team Providers Care Core Setter Name Role Phone Piyush Pandey MD Unavailable Unavailabl e Megan Infante MD Primary Care Provider [phone] Sharmila Davis APRN, NP-C Unavailable [phone] Zaki Ortiz MD Unavailable [phone] Concetta Acevedo MD Unavailable + [phone] Jeff Grace MD Unavailable Encounter Details Date Type Department Care Team (Late st Contact Info) Description 08/24/2023 11:30 AM POWER ORIGINATOR - 08/24/2023 11:59 PM [facility] Hospital Encounter [facility] [address] [place] [address] Zayra Powell, [facility] [address] [place] [address] Discharge Disposition: Home or Self Care (Routine Discharge) Social History Tobacco Use Types Packs/Day Years Used Date Smoking Tobacco: Former Smokeless Tobacco: Former Chew Alcohol Use Standard Drinks/Week Comments Yes 0 (1 standard drink = 0.6 oz pur e alcohol) 6 beers per week [facility] Utilities Answer Date Recorded In [...] often do you attend latter day or rastafarian serv ices? Patient declined 02/16/2023 Do you [...] 12/01/2021 [facility] of Occupat ional Health [...] st Contact Info) Description 09/25/2024 2:00 PM POWER ORIGINATOR Appointment [facility] [address] [place] [address] Zayra Powell FNP [address] [place] [address] 10/16/2024 3:30 PM POWER ORIGINATOR Office Visit [facility] [address] [place] [address] Brit Gonzáles MD [address] [place] [address] documented as of this encounter Goals Goal [...] documented as of this encounter Care Teams Core Setter Relationship Specialty Start Date End Date Megan Infante MD [address] [facility] [place] [address] PCP - General FAMILY PRACTICE 04/06/16 Piyush Pandey MD [place] Awning Hanger Supervisor CARDIOVASCULAR DISEASE 04/06/16 12/28/23 Sharmila Davis, ENTERPRISE CLOUD ARCHITECT, TANK HOOP BENDER-C [address] [address] NURSE PRACTITIONER 01/04/17 04/03/24 Zaki Ortiz MD [address] [place] [address] Consulting Physician PULMONARY DISEASE 07/12/19 Concetta Acevedo MD [address] [place] [address] Surgeon NEUROLOGICAL SURGERY 12/16/22 Jeff Grace MD 9 [place], [place] [address] Consulting Physician INTERNAL MEDICINE 02/11/23 documented as of this encounter
--- OUTSIDE RECORDS SUMMARY | 2024-09-03 20:37 | XMS_ITS | Encounter Summary ---
Author Organization [facility] Address [facility] [place] [address] [place] [address] Care Team Providers Care Senior Etl Developer Name Role Phone Piyush Pandey MD Unavailable Unavailabl Megan Leos MD Primary Care Provider [phone] Sharmila Davis APRN, NP-C Unavailable [phone] Zaki Ortiz MD Unavailable [phone] Concetta Acevedo MD Unavailable +[phone] Jeff Grace MD Unavailable Reason for Referral * Imaging (Emergency) - Closed Specialty Diagnoses / Procedures Referred By Yung sequeira Referred To Contact RADIOLOGY Diagnoses Rt flank pain Procedures CT ABD+PEL WO CON Megan Infante MD [address] [place] [address] Phone: tel: fax: Referral ID Status Reason Start Date Expiration Date Visits Re quested Visits Authorized [id number] Closed CT 11/17/2023 11/17/2024 1 1 Reason for Visit * Imaging (Emergency) - Closed Specialty Diagnoses / Procedures Referred By Yung sequeira Referred To Contact RADIOLOGY Diagnoses Rt flank pain Procedures CT ABD+PEL WO CON Megan Infante MD [address] [place] [address] Phone: tel: fax: Referral ID Status Reason Start Date Expiration Date Visits Re quested Visits Authorized [id number] Closed CT 11/17/2023 11/17/2024 1 1 Encounter Details Date Type Department Care Team (Late st Contact Info) Description 11/17/2023 2:49 PM CDT - 11/17/2023 11:59 PM CDT Hospital En[facility] [address] [place] [address] Megan Infante MD [address] [place] [address] Discharge Disposition: Home or Self Care (Routine Discharge) Social History Tobacco Use Types Packs/Day Years Used Date Smoking Tobacco: Former Smokeless Tobacco: Former Chew Alcohol Use Standard Drinks/Week Comments Yes 0 (1 standard drink = 0.6 oz pur e alcohol) 6 beers per week [facility] Utilities Answer Date Recorded In the past 12 months has [employer], gas, oil, or water [employer] threatened to shut off services in your [...] How often do you attend anglican or hinduism serv ices? Patient declined 02/16/2023 [...] st Contact Info) Description 09/25/2024 2:00 PM ABALONE PROCESSOR Appointment [facility] [address] [facility] [place] [address] Andre Zayra Oli, CIAIO LUMITE INJECTOR [address] [facility] [place] [address] 10/16/2024 3:30 PM ABALONE PROCESSOR Office Visit [facility] [address] [facility] [place] [address] Brit Gonzáles MD [address] [place] [address] documented as of this encounter Goals Goal [...] as of this encounter Care Teams Senior Etl Developer Relationship Specialty Start Date End Date Megan Infante MD [address] [facility] [place] [address] PCP - General FAMILY PRACTICE 04/06/16 Piyush Pandey MD [place] Bus Trolley And Taxi Instructor CARDIOVASCULAR DISEASE 04/06/16 12/28/23 Sharmila Davis, STUNTMAN, CATALYST MANUFACTURING OPERATOR-C [address] [facility] [address] [place] [address] NURSE PRACTITIONER 01/04/17 04/03/24 Zaki Ortiz MD [address] [facility] [address] [place] [address] Consulting Physician PULMONARY DISEASE 07/12/19 Concetta Acevedo MD [address] [place] [address] Surgeon NEUROLOGICAL SURGERY 12/16/22 Jeff Grace MD [address] [place] [address] Consulting Physician INTERNAL MEDICINE 02/11/23 documented as of this encounter
--- OUTSIDE RECORDS SUMMARY | 2024-09-03 20:37 | XMS_ITS | Encounter Summary ---
Author Organization [facility] Address [facility]6 [facility] [place] [address] [place] [address] Care Team Providers Care Gas Pumping Station Supervisor Name Role Phone Megan Infante MD Primary Care Provider [phone] Sharmila Davis APRN, NP-C Unavailable Zaki Ortiz MD Unavailable [phone] Concetta Acevedo MD Unavailable + [phone] Jeff Grace MD Unavailable Brit Gonzáles MD Unavailable Reason for Visit * Reason Onset Date Comments Appointment Reminder 01/28/2024 Encounter Details Date Type Department Care Team (Late st Contact Info) Description 01/28/2024 Telephone [facility] [address] [place] [address] Brit Gonzáles MD [address] [place] [address] Appointment Reminder Social History Tobacco Use Types Packs/Day Years Used Date Smoking Tobacco: Former Smokeless Tobacco: Former Chew Alcohol Use Standard Drinks/Week Comments Yes 0 (1 standard drink = 0.6 oz pur e alcohol) 6 beers per week [facility] Utilities Answer Date Recorded In the past [...] How often do you attend orthodox or yazidi serv ices? Patient declined 02/16/2023 [...] move on to questions 3-9 0 12/01/2021 [facility] [place] of Occupat ional Health - Occupational Stress [...] appt on Wednesday with Dr. Gonzáles in [place]. Asked patient to return call if needing to r/s. documented in this encounter Plan of Treatment Upcoming Encounters Date Type Department Care Team (Late st Contact Info) Description 09/25/2024 2:00 PM STATION ENGINEER Appointment [facility] [address] [place] [address] Zayra Powell, SUGARCANE PLANTER [address] [place] [address] 10/16/2024 3:30 PM STATION ENGINEER Office Visit [facility] [address] [place] [address] Brit Gonzáles MD [address] [place] [address] documented as of this encounter Goals Goal [...] as of this encounter Care Teams Gas Pumping Station Supervisor Relationship Specialty Start Date End Date Megan Infante MD [address] [place] [address] PCP - General FAMILY PRACTICE 04/06/16 Sharmila Davis, SUPERVISOR MARBLE, UNDERWEAR TRIMMER-C [address] [place] [address] NURSE PRACTITIONER 01/04/17 04/03/24 Zaki Ortiz MD [address] [place] [address] Consulting Physician PULMONARY DISEASE 07/12/19 Concetta Aceveod MD [address] [place] [address] [phone] Surgeon NEUROLOGICAL SURGERY 12/16/22 Jeff Grace MD [address] [place] [address] 537821 Consulting Physician INTERNAL MEDICINE 02/11/23 Brit Gonzáles MD [address] [place] [address]69509 Consulting Physician CARDIOVASCULAR DISEASE 12/29/23 documented as of this encounter
--- OUTSIDE RECORDS SUMMARY | 2024-09-03 20:37 | XMS_ITS | Encounter Summary ---
Author Organization [facility] Address [facility] [place] [address] [place] [address] Care Team Providers Care Environmental Project Manager Name Role Phone Piyush Pandey MD Unavailable Unavailabl e Megan Infante MD Primary Care Provider [phone] Sharmila Davis APRN, NP-C Unavailable +[phone] Zaki Ortiz MD Unavailable +[phone] Concetta Acevedo MD Unavailable + [phone] Jeff Grace MD Unavailable Encounter Details Date Type Department Care Team (Latest Contact Info) Description 07/20/2023 11:11 AM QUALITY ENG - 07/20/2023 11:21 AM [facility] Hospital Encounter [facility] [address] [facility] [place] [address] Danita Oh, TABLEAU REPORT DEVELOPER 1 [place] [address] Discharge Disposition: Home or Self Care (Routine Discharge) Social History Tobacco Use Types Packs/Day Years Used Date Smoking Tobacco: Former Smokeless Tobacco: Former Chew Alcohol Use Standard Drinks/Week Comments Yes 0 (1 standard drink = 0.6 oz pur e alcohol) 6 beers per week [facility] Utilities Answer Date Recorded In the past 12 months has [employer], gas, oil, or water company threatened [...] How often do you attend caodaism or mormon serv ices? Patient declined 02/16/2023 [...] move on to questions 3-9 0 12/01/2021 [facility] Occupat ional Health [...] Contact Info) Description 09/25/2024 2:00 PM QUALITY ENG Appointment [facility] [address] [place] [address] Zayra Powell, DISTRIBUTION ESTIMATOR [address] [place] [address] 10/16/2024 3:30 PM QUALITY ENG Office Visit [facility] [address] [place] [address] Brit Gonzáles MD [address] [place] [address] documented as of this encounter Goals Goal Patient Goal Type Associated Problems Recent Progress Patient-Stated? Author Family - family caregiver with be involved in care transitions and discharge planning Lifestyle No Karen Quezada, RN documented as of this encounter Procedures Procedure Name Priority Date/Time Associated Diagnosis Comments PROTHROMBIN TIME, VENOUS Routine 07/20/2023 11:42 AM QUALITY ENG CHF exacerbation (CMS/HCC HHS/HCC) Cellulitis of right leg COMPREHENSIVE METABOLIC PANEL Routine 07/20/2023 11:42 AM QUALITY ENG CHF exacerbation (CMS/HCC HHS/HCC) Shortness of breath Chronic combined systolic and diastolic congestive heart failure (CMS/HCC HHS/HCC) documented in this encounter Results * (ABNORMAL) COMPREHENSIVE METABOLIC PANEL (07/20/2023 11:42 AM QUALITY ENG) SODIUM S/P/B 135(L) 136 - 145 MMOL/L 07/20/2023 12:04 PM [facility] POTASSIUM S/P/B 4.4 3.5 - 5.1 MMOL/L 07/20/2023 12:04 PM [facility] CHLORIDE S/P/B 97(L) 98 - 107 MMOL/L 07/20/2023 12:04 PM [facility] CO2 29.5 21.0 - 32.0 MMOL/L 07/20/2023 12:04 PM [facility] GLUCOSE 184(H) 70 - 99 MG/DL 07/20/2023 12:04 PM [facility] Comment: FASTING GLUCOSE 100 TO 125 MG/DL IS CONSISTENT WITH IMPAIRED FASTING GLUCOSE. FASTING GLUCOSE >125 MG/DL IS CONSISTENT WITH DIABETES. RANDOM GLUCOSE >200 MG/DL WITH HYPERGLYCEMIC SYMPTOMS IS CONSISTENT WITH DIABETES. PER ADA GUIDELINES BUN 53(H) 6 - 24 MG/DL 07/20/2023 12:04 PM [facility] CREATININE S/P/B 1.67(H) 0.70 - 1.30 MG/DL 07/20/2023 12:04 PM [facility] CALCIUM S/P/B 9.3 8.4 - 10.5 MG/DL 07/20/2023 12:04 PM [facility] BILIRUBIN TOTAL S/P/B 0.6 0.2 - 1.0 MG/DL 07/20/2023 12:04 PM [facility] Comment: THIS ASSAY IS NOT RECOMMENDED FOR PATIENTS UNDERGOING TREATMENT WITH ELTROMBOPAG DUE TO THE POTENTIAL FOR FALSELY ELEVATED RESULTS. ALKALINE PHOSPHATASE S/P/B 134(H) 45 - 115 U/L 07/20/2023 12:04 PM [facility] AST 18 15 - 37 U/L 07/20/2023 12:04 PM [facility] ALT 16 16 - 63 U/L 07/20/2023 12:04 PM [facility] TOTAL PROTEIN S/P/B 8.1 6.4 - 8.2 G/DL 07/20/2023 12:04 PM [facility] ALBUMIN S/P/B 3.1(L) 3.4 - 5.0 G/DL 07/20/2023 12:04 PM [facility] ANION GAP 8.5 5.0 - 15.0 MMOL/L 07/20/2023 12:04 PM [facility] OSMOLALITY (CALC) 299 MOSM/KG 023 12:04 PM [facility] Comment:REFERENCE RANGE NOT ESTABLISHED GFR ESTIMATE 44(L) >89 ML/MIN/1. 73 M2 07/20/2023 12:04 PM [facility] GFR NOTES GFR REFERENCE S: 07/20/2023 12:04 PM [facility] Comment: THE ESTIMATED GFR IS CALCULATED [...] <15 ml/min/1.73 m2 07/20/2023 11:4 2 AM QUALITY ENG us Danita Oh NP LABORATORY Final Result [facility] [address] [place] [address], * (ABNORMAL) PROTIME/INR, VENOUS (07/20/2023 11:42 AM QUALITY ENG) PROTIME 13.6(H) 9.4 - 12.5 SEC 07/20/2023 1:07 PM QUALITY ENG [facility] INR 1.2(H) 0.8 - 1.0 07/20/2023 1:07 PM QUALITY ENG [facility] 07/20/2023 11:4 2 AM QUALITY ENG us Danita Oh NP LABORATORY Final Result [facility] [address] [place] [address], documented in this encounter Visit Diagnoses Diagnosis CHF exacerbation ([facility] HHS/HCC) Congestive heart failure, unspecified Cellulitis [...] documented as of this encounter Care Teams Environmental Project Manager Relationship Specialty Start Date End Date Megan Infante MD [address] [place] [address] PCP - General FAMILY PRACTICE 04/06/16 Piyush Pandey MD [place] Care Specialist CARDIOVASCULAR DISEASE 04/06/16 12/28/23 Sharmila Davis APRN, TABLEAU REPORT DEVELOPER-C [address] [address] NURSE PRACTITIONER 01/04/17 04/03/24 Zaki Ortiz MD [address] [place] [address] Consulting Physician PULMONARY DISEASE 07/12/19 Concetta Acevedo MD [address] [place] [address] Surgeon NEUROLOGICAL SURGERY 12/16/22 Jeff Grace MD [address] [place] [address] Consulting Physician INTERNAL MEDICINE 02/11/23 documented as of this encounter
--- OUTSIDE RECORDS SUMMARY | 2024-09-03 20:37 | XMS_ITS | Encounter Summary ---
Author Organization [facility] Address Counts include 234 beds at the [facility]6 [facility] [place] [address] [place] [address] Care Team Providers Care Dry Wall Installer Name Role Phone Piyush Pandey MD Unavailable Unavailabl e Megan Infante MD Primary Care Provider [phone] Sharmila Davis APRN, NP-C Unavailable [phone] Zaki Ortiz MD Unavailable [phone] Concetta Acevedo MD Unavailable + [phone] Jeff Grace MD Unavailable Encounter Details Date Type Department Care Team (Latest Contact Info) Description 08/17/2023 Travel Social History Tobacco Use Types Packs/Day Years Used Date Smoking Tobacco: Former Smokeless Tobacco: Former Chew Alcohol Use Standard Drinks/Week Comments Yes 0 (1 standard drink = 0.6 oz pur e alcohol) 6 beers per week [facility] Utilities Answer Date Recorded In the past 12 months has [employer], gas, oil, or water [employer] threatened to shut off services in your [...] How often do you attend hoahaoism or sabianism serv ices? Patient declined 02/16/2023 [...] move on to questions 3-9 0 12/01/2021 [facility] Occupat ional Health - Occupational [...] Date Author Status No 07/12/2023 6:58 PM ICU REGISTERED NURSE Liliana Gutierrez, RN Active documented in this encounter Plan of Treatment Upcoming Encounters Date Type Department Care Team (Late st Contact Info) Description 09/25/2024 2:00 PM ICU REGISTERED NURSE Appointment [facility] [address] [facility] [place] [address] Zayra Powell, ED SPECIAL EDUCATION TEACHER [address] [place] [address] 10/16/2024 3:30 PM ICU REGISTERED NURSE Office Visit [facility] [address] [facility] [place] [address] Brit Gonzáles MD [address] [place] [address] documented as of this encounter [...] as of this encounter Care Teams Dry Wall Installer Relationship Specialty Start Date End Date Megan Infante MD [address] [place] [address] PCP - General FAMILY PRACTICE 04/06/16 Piyush Pandey MD [place] Rn Delivery CARDIOVASCULAR DISEASE 04/06/16 12/28/23 Sharmila Davis APRN, CONCERT SINGER-C [address] [place] [address] [address] [place] [address] NURSE PRACTITIONER 01/04/17 04/03/24 Zaki Ortiz MD [address] [facility] [place] [address] [place] [address] Consulting Physician PULMONARY DISEASE 07/12/19 Concetta Acevedo MD [address] [place] [address]53602 Surgeon NEUROLOGICAL SURGERY 12/16/22 Jeff Grace MD 619 [place] [address] Consulting Physician INTERNAL MEDICINE 02/11/23 documented as of this encounter
--- OUTSIDE RECORDS SUMMARY | 2024-09-03 20:37 | XMS_ITS | Encounter Summary ---
Author Organization [facility] Address [facility] [place] [address] [place] [address] Care Team Providers Care Mottler Operator Name Role Phone Piyush Pandey MD Unavailable Unavailabl e Megan Infante MD Primary Care Provider [phone] Sharmila Davis APRN, NP-C Unavailable [phone] Zaki Ortiz MD Unavailable [phone] Concetta Acevedo MD Unavailable + [phone] Jeff Grace MD Unavailable Encounter Details Date Type Department Care Team (Latest Contact Info) Description 08/06/2023 Travel Social History Tobacco Use Types Packs/Day Years Used Date Smoking Tobacco: Former Smokeless Tobacco: Former Chew Alcohol Use Standard Drinks/Week Comments Yes 0 (1 standard drink = 0.6 oz pur e alcohol) 6 beers per week [facility] Utilities Answer Date Recorded In the past 12 months has [employer], gas, oil, or water [employer] threatened to shut off services in your [...] How often do you attend pentecostal or denominational serv ices? Patient declined 02/16/2023 [...] on to questions 3-9 0 12/01/2021 [facility] of Occupat ional Health - [...] Date Author Status No 07/12/2023 6:58 PM AD SETTER Liliana Gutierrez, RN Active documented in this encounter Plan of Treatment Upcoming Encounters Date Type Department Care Team (Late st Contact Info) Description 09/25/2024 2:[address] [facility] [address] [facility] [place] [address] Zayra Powell, EARTHMOVING PLANT OPERATOR [address] [facility] [place] [address] 10/16/2024 3:30 PM AD SETTER Office Visit [facility] [address] [facility] [place] [place] [address] Brit Gonzáles MD 619 [place] [address] documented as of this encounter [...] documented as of this encounter Care Teams Mottler Operator Relationship Specialty Start Date End Date Megan Infante MD [address] [facility] [place] [address] PCP - General FAMILY PRACTICE 04/06/16 Piyush Pandey MD [place] Roof Designer CARDIOVASCULAR DISEASE 04/06/16 12/28/23 Sharmila Davis APRN, HYDRAULIC BLOCKER-C [address] [place] [address] [address] [place] [address] NURSE PRACTITIONER 01/04/17 04/03/24 Zaki Ortiz MD [address] [facility] [address] [place] [address] Consulting Physician PULMONARY DISEASE 07/12/19 Concetta Acevedo MD [address] [place] [address] Surgeon NEUROLOGICAL SURGERY 12/16/22 Jeff Grace MD [address] [place] [address] Consulting Physician INTERNAL MEDICINE 02/11/23 documented as of this encounter
--- OUTSIDE RECORDS SUMMARY | 2024-09-03 20:37 | XMS_ITS | Encounter Summary ---
Author Organization [facility] Address [facility] [place] [address] [place] [address] Care Team Providers Care Commercial Escrow Officer Name Role Phone Piyush Pandey MD Unavailable Unavailabl e Megan Infante MD Primary Care Provider [phone] Sharmila Davis APRN, NP-C Unavailable [phone] Zaki Ortiz MD Unavailable [phone] Concetta Acevedo MD Unavailable + [phone] Jeff Grace MD Unavailable Reason for Visit * Reason Onset Date Comments Follow Up Call 07/19/2023 SFL 07/12/23- Encounter Details Date Type Department Care Team (Latest Contact Info) Description 07/19/2023 Hospital Follow-up Call [facility] Care Management [address] [place] [address] [place] [address] Maria De Jesus Gonzáles Follow Up Call (SFL 07/12/23-07/16/23) Social History Tobacco Use Types Packs/Day Years Used Date Smoking Tobacco: Former Smokeless Tobacco: Former Chew Alcohol Use Standard Drinks/Week Comments Yes 0 (1 standard drink = 0.6 oz pur e alcohol) 6 beers per week [facility] Utilities Answer [...] often do you attend jehovah's witness or advent serv ices? Patient declined 02/16/2023 [...] questions 3-9 0 12/01/2021 [facility] - Occupational Stress Questionnaire [...] st Contact Info) Description 09/25/2024 2:00 PM INTERNATIONAL EXCHANGE COORDINATOR Appointment [facility] [address] [place] [address] Zayra Powell, AIRCRAFT MOTOR MECHANIC [address] [place] [address] 10/16/2024 3:30 PM INTERNATIONAL EXCHANGE COORDINATOR Office Visit [facility] [address] [place] [phone] Brit Gonzáles MD 619 [place] [address] documented as of this encounter Goals Goal [...] as of this encounter Care Teams Commercial Escrow Officer Relationship Specialty Start Date End Date Megan Infante MD [address] [place] [address] PCP - General FAMILY PRACTICE 04/06/16 Piyush Pandey MD [place] Project Manager/Design Manager CARDIOVASCULAR DISEASE 04/06/16 12/28/23 Sharmila Davis APRN, MECHANICAL SHOVEL OPERATOR-C [address] [phone] NURSE PRACTITIONER 01/04/17 04/03/24 Zaki Ortiz MD [address] [phone] Consulting Physician PULMONARY DISEASE 07/12/19 Concetta Acevedo MD [address] [place] [phone] Surgeon NEUROLOGICAL SURGERY 12/16/22 Jeff Grace MD [address] [place], [place] [address] Consulting Physician INTERNAL MEDICINE 02/11/23 documented as of this encounter
--- OUTSIDE RECORDS SUMMARY | 2024-09-03 20:37 | XMS_ITS | Encounter Summary ---
Author Organization [facility] Address [address] [place] [address]. [place] [address] [place] [address] Care Team Providers Care Rail Car Maintenance Mechanic Name Role Phone Piyush Pandey MD Unavailable Unavailabl e Megan Infante MD Primary Care Provider [phone] Sharmila Davis APRN PROPOSAL MANAGER-C Unavailable Zaki Ortiz MD Unavailable [phone] Concetta Acevedo MD Unavailable + [phone] Jeff Grace MD Unavailable Encounter Details Date Type Department Care Team (Late st Contact Info) Description 08/17/2023 11:25 AM ALLIANCE CONSULTANT - 08/17/2023 11:59 PM [facility] Hospital Encounter [facility] [address] [place] [address] Zayra Powell, [facility] [address] [place] [address] Discharge Disposition: Home or Self Care (Routine Discharge) Social History Tobacco Use Types Packs/Day Years Used Date Smoking Tobacco: Former Smokeless Tobacco: Former Chew Alcohol Use Standard Drinks/Week Comments Yes 0 (1 standard drink = 0.6 oz pur e alcohol) 6 beers per week [facility] Utilities Answer Date Recorded In [...] How often do you attend samaritan or yazidism serv ices? Patient declined 02/16/2023 [...] move on to questions 3-9 0 12/01/2021 [facility] of Occupat ional Health - [...] modified, Order list changed, Diagnosis association updated ANCE CONSULTANT * Mary oMore RN - 08/17/2023 11:30 AM CSTEncounter addended by: Mary Moore RN on: 08/17/2023 12:43 PM Actions taken: MAR administration accepted ANCE CONSULTANT documented in this encounter Plan of Treatment Upcoming Encounters Date Type Department Care Team (Late st Contact Info) Description 09/25/2024 2:00 PM ALLIANCE CONSULTANT Appointment [facility] [address] [place] [address] Zayra Powell FNP [address] [place] [address] 10/16/2024 3:30 PM ALLIANCE CONSULTANT Office Visit [facility] [address] [place] [address] Brit Gonzáles MD 619 [place] [address] documented as of this encounter Goals Goal [...] Wed08/17/23 at 1230 Given 08/17/2023 11:30 AM ALLIANCE CONSULTANT documented in this encounter Additional Health Concerns Assessment Noted Time PHQ-9 Depression Total Score: 0 12/02/19 22 1:18 PM CDT documented as of this encounter Care Teams Rail Car Maintenance Mechanic Relationship Specialty Start Date End Date Megan Infante MD [address] [facility] [place] [address] PCP - General FAMILY PRACTICE 04/06/16 Piyush Pandey MD [place] Metallurgist Helper CARDIOVASCULAR DISEASE 04/06/16 12/28/23 Sharmila Davis APRN, PROPOSAL MANAGER-C [address] [place] [phone] NURSE PRACTITIONER 01/04/17 04/03/24 Zaki Ortiz MD [address] [facility] [address] [address] Consulting Physician PULMONARY DISEASE 07/12/19 Concetta Acevedo MD [address] [place] [address]12 Surgeon NEUROLOGICAL SURGERY 12/16/22 Jeff Grace MD 619 [place] [address] Consulting Physician INTERNAL MEDICINE 02/11/23 documented as of this encounter
--- OUTSIDE RECORDS SUMMARY | 2024-09-03 20:37 | XMS_ITS | Encounter Summary ---
Author Organization [facility] Address [facility] [place] [address] [place] [address] Care Team Providers Care Warehouse Freight Handler Name Role Phone Piyush Pandey MD Unavailable Unavailabl e Megan Infante MD Primary Care Provider [phone] Sharmila Davis APRN, NP-C Unavailable [phone] Zaki Ortiz MD Unavailable [phone] Concetta Acevedo MD Unavailable + [phone] Jeff Grace MD Unavailable Encounter Details Date Type Department Care Team (Latest Contact Info) Description 07/27/2023 Travel Social History Tobacco Use Types Packs/Day Years Used Date Smoking Tobacco: Former Smokeless Tobacco: Former Chew Alcohol Use Standard Drinks/Week Comments Yes 0 (1 standard drink = 0.6 oz pur e alcohol) 6 beers per week [facility] Utilities Answer Date Recorded In the past 12 months has [employer], gas, oil, or water [employer] threatened to shut off services in your [...] How often do you attend jewish or caodaism serv ices? Patient declined 02/16/2023 Do you [...] Date Author Status No 07/12/2023 6:58 PM ABORIGINAL EDUCATION TEACHER Liliana Gutierrez, RN Active documented in this encounter Plan of Treatment Upcoming Encounters Date Type Department Care Team (Late st Contact Info) Description 09/25/2024 2:00 PM ABORIGINAL EDUCATION TEACHER Appointment [facility] [address] [facility] [place] [address] Zayra Powell, CLINICAL UNIT EDUCATOR [address] [place] [address] 10/16/2024 3:30 PM ABORIGINAL EDUCATION TEACHER Office Visit [facility] [address] [facility] [place] [place] [address] Brit Gonzáles MD 619 [place] [address] documented as of this encounter [...] as of this encounter Care Teams Warehouse Freight Handler Relationship Specialty Start Date End Date Megan Infante MD [address] [place] [address] PCP - General FAMILY PRACTICE 04/06/16 Piyush Pandey MD [place] Flight Attendant/Inflight Manager CARDIOVASCULAR DISEASE 04/06/16 12/28/23 Sharmila Davis APRN, COMPOUNDING PHARMACY TECHNICIAN-C [address] [place] [address] [address] [place] [address] NURSE PRACTITIONER 01/04/17 04/03/24 Zaki Ortiz MD [address] [facility] [address] [place] [address] Consulting Physician PULMONARY DISEASE 07/12/19 Concetta Acevedo MD [address] [place] [address]54772 Surgeon NEUROLOGICAL SURGERY 12/16/22 Jeff Grace MD [address] [place] [address] Consulting Physician INTERNAL MEDICINE 02/11/23 documented as of this encounter
--- OUTSIDE RECORDS SUMMARY | 2024-09-03 20:37 | XMS_ITS | Encounter Summary ---
Author Organization [facility] Address Critical access hospital6 [facility] [place] [address] [place] [address] Care Team Providers Care Tack Puller Name Role Phone Megan Infante MD Primary Care Provider [phone] Sharmila Davis APRN, NP-C Unavailable Zaki Ortiz MD Unavailable [phone] Concetta Acevedo MD Unavailable + [phone] Jeff Grace MD Unavailable Brit Gonzáles MD Unavailable Reason for Visit * Reason Onset Date Comments Appointment Request 12/29/2023 Fluid overlo ad Encounter Details Date Type Department Care Team (Late st Contact Info) Description 12/29/2023 Telephone [facility] [address] [place] [address] Brit Gonzáles MD [address] [place] [address] Appointment Request (Fluid overload) Social History Tobacco Use Types Packs/Day Years Used Date Smoking Tobacco: Former Smokeless Tobacco: Former Chew Alcohol Use Standard Drinks/Week Comments Yes 0 (1 standard drink = 0.6 oz pur e alcohol) 6 beers per week [facility] Utilities Answer Date Recorded In the past 12 months has [employer], gas, oil, or water company threatened to [...] How often do you attend mandaeism or baptism serv ices? Patient declined 02/16/2023 [...] CDT Mariel called to schedule appt in [place] in January for fluid overload Scheduled 01/31/[address] Gonzáles. Records requested. documented in this encounter Plan of Treatment Upcoming Encounters Date Type Department Care Team (Late st Contact Info) Description 09/25/2024 2:00 PM ONLINE RETAILER Appointment [facility] [address] [place] [address] Zayra Powell, [facility] [address] [place] [address] 10/16/2024 3:30 PM ONLINE RETAILER Office Visit [facility] [address] [place] [address] Brit Gonzáles MD [address] [place] [address] documented as of this encounter Goals Goal [...] documented as of this encounter Care Teams Tack Puller Relationship Specialty Start Date End Date Megan Infante MD [address] [facility] [place] [phone] PCP - General FAMILY PRACTICE 04/06/16 Sharmila Davis, TEACHER OF THE VISUALLY IMPAIRED, COOK [place]ILL TECHNICIAN-C [address] [place] [phone] NURSE PRACTITIONER 01/04/17 04/03/24 Zaki Ortiz MD [address] [place] [phone] Consulting Physician PULMONARY DISEASE 07/12/19 Concetta Acevedo MD [address] [place] [address] Surgeon NEUROLOGICAL SURGERY 12/16/22 Jeff Grace MD [address] [place] [address] Consulting Physician INTERNAL MEDICINE 02/11/23 Brit Gonzáles MD [address] [place] [address]159 Consulting Physician CARDIOVASCULAR DISEASE 12/29/23 documented as of this encounter
--- OUTSIDE RECORDS SUMMARY | 2024-09-03 20:37 | XMS_ITS | Encounter Summary ---
Author Organization [facility] Address [facility] [place] [address] [place] [address] Care Team Providers Care Railroad Commissioner Name Role Phone Piyush Pandey MD Unavailable Unavailabl e Megan Infante MD Primary Care Provider [phone] Sharmila Davis APRN, NP-C Unavailable Zaki Ortiz MD Unavailable [phone] Concetta Acevedo MD Unavailable + [phone] Jeff Grace MD Unavailable Encounter Details Date Type Department Care Team (Late st Contact Info) Description 08/10/2023 Orders Only [facility] [address] [facility] [place] [address] Theresa Sheriff PA-C [address] [place] [phone] Social History Tobacco Use Types Packs/Day Years Used Date Smoking Tobacco: Former Smokeless Tobacco: Former Chew Alcohol Use Standard Drinks/Week Comments Yes 0 (1 standard drink = 0.6 oz pur e alcohol) 6 beers per week [facility] Utilities Answer Date Recorded In the past 12 months has th e [employer], gas, oil, or water [employer] threatened to shut off services in your [...] declined 02/16/2023 How often do you attend voodoo or quaker serv ices? Patient declined 02/16/2023 Do you belong to any clubs o r organizations such as voodoo groups, unions, fraternal or athletic groups, or [...] st Contact Info) Description 09/25/2024 2:00 PM LAWYER REAL ESTATE Appointment [facility] [address] [facility] [place] [place] [address] Zayra Powell, [facility] [address] [facility] [place] [address] 10/16/2024 3:30 PM LAWYER REAL ESTATE Office Visit [facility] [id number] [place] [phone] Brit Gonzáles MD [address] [place] [address] documented as of this encounter Goals Goal Patient Goal Type Associated Problems Recent Progress Patient-Stated? Author Family - family caregiver with be involved in care transitions and discharge planning Lifestyle No Karen Quezada RN documented as of this encounter Results * (ABNORMAL) RENAL FUNCTION PANEL (08/10/2023 11:48 AM LAWYER REAL ESTATE) SODIUM S/P/B 135(L) 136 - 145 MMOL/L 08/10/2023 12:18 PM [facility] POTASSIUM S/P/B 4.6 3.5 - 5.1 MMOL/L 08/10/2023 12:18 PM [facility] CHLORIDE S/P/B 99 98 - 107 MMOL/L 08/10/2023 12:18 PM [facility] CO2 30.6 21.0 - 32.0 MMOL/L 08/10/2023 12:18 PM [facility] GLUCOSE 221(H) 70 - 99 MG/DL 08/10/2023 12:18 PM [facility] Comment: FASTING GLUCOSE 100 TO 125 MG/DL IS CONSISTENT WITH IMPAIRED FASTING GLUCOSE. FASTING GLUCOSE >125 MG/DL IS CONSISTENT WITH DIABETES. RANDOM GLUCOSE >200 MG/DL WITH HYPERGLYCEMIC SYMPTOMS IS CONSISTENT WITH DIABETES. PER ADA GUIDELINES BUN 42(H) 6 - 24 MG/DL 08/10/2023 12:18 PM [facility] CREATININE S/P/B 1.71(H) 0.70 - 1.30 MG/DL 08/10/2023 12:18 PM [facility] CALCIUM S/P/B 9.3 8.4 - 10.5 MG/DL 08/10/2023 12:18 PM [facility] ALBUMIN S/P/B 3.2(L) 3.4 - 5.0 G/DL 08/10/2023 12:18 PM [facility] PHOSPHORUS 4.7 2.6 - 4.7 MG/DL 08/10/2023 12:18 PM [facility] ANION GAP 5.4 5.0 - 15.0 MMOL/L 08/10/2023 12:18 PM [facility] OSMOLALITY (CALC) 297 MOSM/KG 023 12:18 PM [facility] Comment:REFERENCE RANGE NOT ESTABLISHED GFR ESTIMATE 43(L) >89 ML/MIN/1. 73 M2 08/10/2023 12:18 PM [facility] GFR NOTES GFR REFERENCE S: 08/10/2023 12:18 PM [facility] Comment: THE ESTIMATED GFR [...] <15 ml/min/1.73 m2 08/10/2023 11:4 8 AM LAWYER REAL ESTATE us Theresa Sheriff PA-C LABORATORY Final Resu lt [facility] [address] [place] [address], * (ABNORMAL) CBC W/DIFF AUTOMATED (08/10/2023 11:48 AM LAWYER REAL ESTATE) WBC 8.36 4.00 - 10.80 x10'3/uL 08/10/2023 12:16 PM LAWYER REAL ESTATE [facility] RBC 4.39(L) 4.50 - 6.10 x10'6/uL 08/10/2023 12:16 PM [facility] HGB 9.8(L) 13.0 - 18.0 G/DL 08/10/2023 12:16 PM [facility] HCT 35.2(L) 37.0 - 52.0 % 08/10/2023 12:16 PM [facility] MCV 80.2 78.0 - 100.0 FL 08/10/2023 12:16 PM [facility] MCH 22.3(L) 27.0 - 31.0 PG 08/10/2023 12:16 PM [facility] MCHC 27.8(L) 33.0 - 36.0 G/DL 08/10/2023 12:16 PM [facility] RDW 18.9(H) 11.5 - 14.5 % 08/10/2023 12:16 PM LAWYER REAL ESTATE [facility] PLT 218 150 - 350 x10'3/uL 08/10/2023 12:16 PM [facility] MPV 9.6 7.4 - 10.4 FL 08/10/2023 12:16 PM [facility] CBC COMMENT NORMAL REFERENCE RANGE NOT ESTABLISHED FOR THE PROPORTIONAL LEUKOCYTE DIFFERENTIAL. 08/10/2023 12:16 PM [facility] NEUTROPHILS % 66.0 % 08/10/2023 12:29 PM [facility] LYMPHOCYTES % 14.1 % 08/10/2023 12:29 PM [facility] MONOCYTES % 10.3 % 08/10/2023 12:29 PM [facility] EOSINOPHILS % 8.5 % 08/10/2023 12:29 PM LAWYER REAL ESTATE [facility] BASOPHILS % 0.7 % 08/10/2023 12:29 PM LAWYER REAL ESTATE [facility] IMMATURE GRANS % 0.4 % 08/10/20 12:29 PM LAWYER REAL ESTATE [facility] NRBC 0.0 % 08/10/2023 12:29 PM [facility] ABS. NEUTROPHILS 5.52 1.60 - 8.30 x10'3/uL 08/10/2023 12:29 PM [facility] ABS. LYMPHOCYTES 1.18 0.80 - 4.70 x10'3/uL 08/10/2023 12:29 PM [facility] ABS. MONOCYTES 0.86 0.00 - 1.50 x10'3/uL 08/10/2023 12:29 PM [facility] ABS. EOSINOPHILS 0.71(H) 0.00 - 0.40 x10'3/uL 08/10/2023 12:29 PM [facility] ABS. BASOPHILS 0.06 0.00 - 0.20 x10'3/uL 08/10/2023 12:29 PM [facility] ABS. IMMATURE GRANULOCYTES 0.03 0.00 - 0.03 x10'3/uL 08/10/2023 12:29 PM [facility] ABS. NUCLEATED RBC'S 0.00 0.00 x10'3/uL 08/10/2023 12:29 PM [facility] PLT MORPH. NORMAL 08/10/2023 12:29 PM [facility] RBC MORPHOLOGY 2+ 08/10/2023 12:29 PM [facility] Comment: ANISOCYTOSIS 2+ HYPOCHROMASIA 08/10/2023 11:4 8 AM LAWYER REAL ESTATE Theresa Sheriff PA-C LABORATORY Final Resu lt Performing Organization Address [facility]/ZIP Co de Phone Number [facility] [address] [place] [phone], * (ABNORMAL) ALBUMIN CREATININE URINE RANDOM (08/10/2023 11:46 AM LAWYER REAL ESTATE) ALBUMIN (U) 2.0 MG/DL 08/10/2023 12:17 PM LAWYER REAL ESTATE [facility] Comment:REFERENCE RANGE NOT ESTABLISHED CREATININE RANDOM (U) 38.8 MG/DL 08/10/2023 12:17 PM LAWYER REAL ESTATE [facility] Comment:REFERENCE RANGE NOT ESTABLISHED ALBUMIN/CREAT RATIO 51.6(H) <30 MG/G 08/10/2023 12:17 PM LAWYER REAL ESTATE [facility] Comment: NORMAL TO MILDLY INCREASED ALBUMINURIA: <30 MG/G MODERATELY INCREASED ALBUMINURIA: 30 TO 300 MG/G SEVERELY INCREASED ALBUMINURIA: >300 MG/G PER KDIGO URINE SPECIMEN / Unknown 08/10/2023 11:46 AM LAWYER REAL ESTATE Theresa Sheriff PA-C URINE ORDERABLES Final Res ult Performing Organization Address [facility] Co de Phone Number [facility] [address] [place] [phone], documented in this encounter Visit Diagnoses Diagnosis CKD (chronic kidney disease) stage 3, GFR 30-59 ml/min ([facility])- Primary Chronic kidney disease, Stage III (moderate) documented in this encounter Additional Health Concerns Assessment Noted Time PHQ-9 Depression Total Score: 0 12/02/19 22 1:18 PM CDT documented as of this encounter Care Teams Railroad Commissioner Relationship Specialty Start Date End Date Megan Infante MD [address] [place] [address] PCP - General FAMILY PRACTICE 04/06/16 Piyush Pandey MD [place] Student Admissions Clerk CARDIOVASCULAR DISEASE 04/06/16 12/28/23 Sharmila Davis APRN, REGISTERED NURSE FLOAT POOL-C [address] [phone] NURSE PRACTITIONER 01/04/17 04/03/24 Zaki Ortiz MD [address] [address] Consulting Physician PULMONARY DISEASE 07/12/19 Concetta Acevedo MD [address] [place] [address] Surgeon NEUROLOGICAL SURGERY 12/16/22 Jeff Grace MD [address] [place], [place] [address] Consulting Physician INTERNAL MEDICINE 02/11/23 documented as of this encounter
--- OUTSIDE RECORDS SUMMARY | 2024-09-03 20:37 | XMS_ITS | Encounter Summary ---
Author Organization [facility] Address [address] [place] [address]. [place] [address] [place] [address] Care Team Providers Care Flight Engineer Manager Name Role Phone Piyush Pandey MD Unavailable Unavailabl e Megan Infante MD Primary Care Provider [phone] Sharmila Davis APRN BOX INSPECTOR-C Unavailable Zaki Ortiz MD Unavailable [phone] Concetta Acevedo MD Unavailable + [phone] Jeff Grace MD Unavailable Encounter Details Date Type Department Care Team (Late st Contact Info) Description 08/03/2023 10:53 AM REED FIXER - 08/03/2023 11:59 PM [facility] Hospital Encounter [facility] [address] [place] [address] Zayra Powell, [facility] [address] [place] [address] Discharge Disposition: Home or Self Care (Routine Discharge) Social History Tobacco Use Types Packs/Day Years Used Date Smoking Tobacco: Former Smokeless Tobacco: Former Chew Alcohol Use Standard Drinks/Week Comments Yes 0 (1 standard drink = 0.6 oz pur e alcohol) 6 beers per week [facility] Utilities Answer Date Recorded In the [...] How often do you attend druze or alevism serv ices? Patient declined 02/16/2023 [...] mg total) by mouth daily. 04/18/2014 4 cyclobenzaprine (FLEXERIL) 10 MG tablet Take [...] 12:52 PM Actions taken: MAR administration accepted FIXER documented in this encounter Plan of Treatment Upcoming Encounters Date Type Department Care Team (Late st Contact Info) Description 09/25/2024 2:00 PM REED FIXER Appointment [facility] [address] [place] [address] Zayra Powell, [employer] [address] [place] [address] 10/16/2024 3:30 PM REED FIXER Office Visit [facility] [address] [place] [phone] Brit Gonzáles MD [address] [place] [address] documented as of this encounter Goals Goal [...] skin (CMS/HCC HHS/HCC) Given 08/03/2023 11:10 AM REED FIXER documented in this encounter Additional Health Concerns Assessment Noted Time PHQ-9 Depression Total Score: 0 12/02/19 22 1:18 PM CDT documented as of this encounter Care Teams Flight Engineer Manager Relationship Specialty Start Date End Date Megan Infante MD [address] [facility] [place] [address] PCP - General FAMILY PRACTICE 04/06/16 Piyush Pandey MD [place] Pre Parole Counseling Aide CARDIOVASCULAR DISEASE 04/06/16 12/28/23 Sharmila Davis, DANNY, BOX INSPECTOR-C [address] [place] [phone] NURSE PRACTITIONER 01/04/17 04/03/24 Zaki Ortiz MD [address] [place] [phone] Consulting Physician PULMONARY DISEASE 07/12/19 Romeo-Concetta Pond MD [address] [place] [phone] Surgeon NEUROLOGICAL SURGERY 12/16/22 Jeff Grace MD [address] [place] [address] Consulting Physician INTERNAL MEDICINE 02/11/23 documented as of this encounter
--- OUTSIDE RECORDS SUMMARY | 2024-09-03 20:37 | XMS_ITS | Encounter Summary ---
Author Organization [facility] Address [facility] [place] [address] [place] [address] Care Team Providers Care Hydro Excavation Operator Name Role Phone Piyush Pandey MD Unavailable Unavailabl e Megan Infante MD Primary Care Provider [phone] Sharmila Davis APRN, NP-C Unavailable [phone] Zaki Ortiz MD Unavailable [phone] Concetta Acevedo MD Unavailable + [phone] Jeff Grace MD Unavailable Encounter Details Date Type Department Care Team (Latest Contact Info) Description 07/20/2023 11:22 AM BARREL CENTERER - 07/20/2023 11:59 PM [facility] Hospital Encounter [facility] [address] [facility] [place] [address] Sapphire Peterson, HEADING MATCHER AND ASSEMBLER [address] [place] [address] Discharge Disposition: Home or Self Care (Routine Discharge) Social History Tobacco Use Types Packs/Day Years Used Date Smoking Tobacco: Former Smokeless Tobacco: Former Chew Alcohol Use Standard Drinks/Week Comments Yes 0 (1 standard drink = 0.6 oz pur e alcohol) 6 beers per week [facility] Utilities Answer Date Recorded In the past 12 months has [employer], gas, oil, or water company threatened [...] How often do you attend samaritan or zoroastrian serv ices? Patient declined 02/16/2023 Do you [...] st Contact Info) Description 09/25/2024 2:00 PM BARREL CENTERER Appointment [facility] [address] [place] [address] Zayra Powell, WATER RESOURCE ENGINEERING SPECIALIST [address] [place] [address] 10/16/2024 3:30 PM BARREL CENTERER Office Visit [facility] [facility] [address] [place] [address] Brit Gonzáles MD [address] [place] [address] documented as of this encounter Goals Goal Patient Goal Type Associated Problems Recent Progress Patient-Stated? Author Family - family caregiver with be involved in care transitions and discharge planning Lifestyle No Karen Quezada RN documented as of this encounter Procedures Procedure Name Priority Date/Time Associated Diagnosis Comments CBC W/DIFF AUTOMATED Routine 07/20/2023 11:42 AM BARREL CENTERER Anemia documented in this encounter Results * (ABNORMAL) CBC W/DIFF AUTOMATED (07/20/2023 11:42 AM BARREL CENTERER) WBC 8.00 4.00 - 10.80 x10'3/uL 07/20/2023 12:03 PM BARREL CENTERER [facility] RBC 3.63(L) 4.50 - 6.10 x10'6/uL 07/20/2023 12:03 PM [facility] HGB 8.1(L) 13.0 - 18.0 G/DL 07/20/2023 12:03 PM [facility] HCT 29.1(L) 37.0 - 52.0 % 07/20/2023 12:03 PM [facility] MCV 80.2 78.0 - 100.0 FL 07/20/2023 12:03 PM [facility] MCH 22.3(L) 27.0 - 31.0 PG 07/20/2023 12:03 PM BARREL CENTERER [facility] MCHC 27.8(L) 33.0 - 36.0 G/DL 07/20/2023 12:03 PM [facility] RDW 21.6(H) 11.5 - 14.5 % 07/20/2023 12:03 PM [facility] PLT 232 150 - 350 x10'3/uL 07/20/2023 12:03 PM [facility] MPV 9.9 7.4 - 10.4 FL 07/20/2023 12:03 PM [facility] CBC COMMENT NORMAL REFERENCE RANGE NOT ESTABLISHED FOR THE PROPORTIONAL LEUKOCYTE DIFFERENTIAL. 07/20/2023 12:03 PM [facility] NEUTROPHILS % 69.1 % 07/20/2023 1:30 PM [facility] LYMPHOCYTES % 14.4 % 07/20/2023 1:30 PM [facility] MONOCYTES % 10.6 % 07/20/2023 1:30 PM [facility] EOSINOPHILS % 5.0 % 07/20/2023 1:30 PM BARREL CENTERER [facility] BASOPHILS % 0.5 % 07/20/2023 1:30 PM BARREL CENTERER [facility] IMMATURE GRANS % 0.4 % 07/20/20 1:30 PM BARREL CENTERER [facility] NRBC 0.0 % 07/20/2023 1:30 PM BARREL CENTERER [facility] ABS. NEUTROPHILS 5.53 1.60 - 8.30 x10'3/uL 07/20/2023 1:30 PM BARREL CENTERER [facility] ABS. LYMPHOCYTES 1.15 0.80 - 4.70 x10'3/uL 07/20/2023 1:30 PM BARREL CENTERER [facility] ABS. MONOCYTES 0.85 0.00 - 1.50 x10'3/uL 07/20/2023 1:30 PM BARREL CENTERER [facility] ABS. EOSINOPHILS 0.40 0.00 - 0.40 x10'3/uL 07/20/2023 1:30 PM BARREL CENTERER [facility] ABS. BASOPHILS 0.04 0.00 - 0.20 x10'3/uL 07/20/2023 1:30 PM BARREL CENTERER [facility] ABS. IMMATURE GRANULOCYTES 0.03 0.00 - 0.03 x10'3/uL 07/20/2023 1:30 PM BARREL CENTERER [facility] ABS. NUCLEATED RBC'S 0.00 0.00 x10'3/uL 07/20/2023 1:30 PM BARREL CENTERER [facility] PLT MORPH. NORMAL 07/20/2023 1:30 PM BARREL CENTERER [facility] RBC MORPHOLOGY 2+ 07/20/2023 1:30 PM BARREL CENTERER [facility] Comment: HYPOCHROMASIA 1+ ANISOCYTOSIS 1+ POIKILOCYTOSIS 07/20/2023 11:4 2 AM BARREL CENTERER us Sapphire Peterson NP LABORATORY Final Result [facility] [address] [place] [address], documented in this encounter Visit Diagnoses Diagnosis Anemia Anemia, unspecified documented in this encounter Additional Health Concerns Assessment Noted Time PHQ-9 Depression Total Score: 0 12/02/19 22 1:18 PM CDT documented as of this encounter Care Teams Hydro Excavation Operator Relationship Specialty Start Date End Date Megan Infante MD [address] [facility] [place] [address] PCP - General FAMILY PRACTICE 04/06/16 Piyush Pandey MD [place] Door Closer Mechanic CARDIOVASCULAR DISEASE 04/06/16 12/28/23 Sharmila Davis APRN, HEADING MATCHER AND ASSEMBLER-C [address] [place] [phone] NURSE PRACTITIONER 01/04/17 04/03/24 Zaki Ortiz MD [address] [place] [phone] Consulting Physician PULMONARY DISEASE 07/12/19 Concetta Acevedo MD [address] [place] [address] Surgeon NEUROLOGICAL SURGERY 12/16/22 Jeff Grace MD [address] [place] [address] Consulting Physician INTERNAL MEDICINE 02/11/23 documented as of this encounter
--- OUTSIDE RECORDS SUMMARY | 2024-09-03 20:37 | XMS_ITS | Encounter Summary ---
Author Organization [facility] Address [address] [place] [address]. [place] [address] [place] [address] Care Team Providers Care Ball Mill Operator Name Role Phone Piyush Pandey MD Unavailable Unavailabl e Megan Infante MD Primary Care Provider [phone] Sharmila Davis APRN, NP-C Unavailable Zaki Ortiz MD Unavailable [phone] Concetta Acevedo MD Unavailable + [phone] Jeff Grace MD Unavailable Encounter Details Date Type Department Care Team (Late st Contact Info) Description 08/10/2023 11:00 AM ENERGY RISK MANAGEMENT ANALYST - 08/10/2023 11:27 AM [facility] Hospital Encounter [facility] [address] [place] [address] Zayra Powell, [facility] [address] [place] [address] Discharge Disposition: Home or Self Care (Routine Discharge) Social History Tobacco Use Types Packs/Day Years Used Date Smoking Tobacco: Former Smokeless Tobacco: Former Chew Alcohol Use Standard Drinks/Week Comments Yes 0 (1 standard drink = 0.6 oz pur e alcohol) 6 beers per week [facility] Utilities Answer Date Recorded In [...] How often do you attend adventism or zoroastrian serv ices? Patient declined 02/16/2023 [...] move on to questions 3-9 0 12/01/2021 [facility] - [...] Author Status Yes 07/12/2023 6:58 PM Liliana Layen RN Active * Do you have difficulty [...] st Contact Info) Description 09/25/2024 2:00 PM ENERGY RISK MANAGEMENT ANALYST Appointment [facility] [address] [place] [address] Zayra Powell, WILDFIRE PREVENTION SPECIALIST [address] [place] [address] 10/16/2024 3:30 PM ENERGY RISK MANAGEMENT ANALYST Office Visit [facility] [address] [place] [phone] Brit Gonzáles MD [address] [place] [address] documented as of this encounter Goals Goal [...] documented as of this encounter Care Teams Ball Mill Operator Relationship Specialty Start Date End Date Megan Infante MD [address] [place] [address] PCP - General FAMILY PRACTICE 04/06/16 Piyush Pandey MD [place] Simulation Analyst CARDIOVASCULAR DISEASE 04/06/16 12/28/23 Sharmila Davis APRN, FREIGHT CAR INSPECTOR-C [address] [phone] NURSE PRACTITIONER 01/04/17 04/03/24 Zaki Ortiz MD [address] [place] [phone] Consulting Physician PULMONARY DISEASE 07/12/19 Concetta Acevedo MD [address] [place] [address] Surgeon NEUROLOGICAL SURGERY 12/16/22 Jeff Grace MD [address] [place] [phone] Consulting Physician INTERNAL MEDICINE 02/11/23 documented as of this encounter
--- OUTSIDE RECORDS SUMMARY | 2024-09-03 20:37 | XMS_ITS | Encounter Summary ---
Author Organization [facility] Address [facility] [place] [address] [place] [address] Care Team Providers Care Machine Compositor Name Role Phone Piyush Pandey MD Unavailable Unavailabl e Megan Infante MD Primary Care Provider [phone] Sharmila Davis APRN, NP-C Unavailable [phone] Zaki Ortiz MD Unavailable [phone] Concetta Acevedo MD Unavailable + [phone] Jeff Grace MD Unavailable Encounter Details Date Type Department Care Team (Latest Contact Info) Description 08/24/2023 Travel Social History Tobacco Use Types Packs/Day Years Used Date Smoking Tobacco: Former Smokeless Tobacco: Former Chew Alcohol Use Standard Drinks/Week Comments Yes 0 (1 standard drink = 0.6 oz pur e alcohol) 6 beers per week [facility] Utilities Answer Date Recorded In the past 12 months has [employer] gas, oil, or water [employer] threatened to shut off services in [...] declined 02/16/2023 How often do you attend methodist or druze serv ices? Patient declined 02/16/2023 Do you belong to any clubs o r organizations such as methodist groups, unions, fraternal or athletic groups, or [...] move on to questions 3-9 0 12/01/2021 [facility] Occupat [facility] - Occupational [...] Date Author Status No 07/12/2023 6:58 PM HAND TOUCH UP PAINTER Liliana Gutierrez, RN Active documented in this encounter Plan of Treatment Upcoming Encounters Date Type Department Care Team (Late st Contact Info) Description 09/25/2024 2:00 PM HAND TOUCH UP PAINTER Appointment [facility] [address] [facility] [place] [address] Zayra Powell, SECURITY ASSURANCE ANALYST [address] [facility] [place] [address] 10/16/2024 3:30 PM HAND TOUCH UP PAINTER Office Visit [facility] [address] [facility] [place] [address] Brit Gonzáles MD [address] [place] [address] documented as of this encounter [...] documented as of this encounter Care Teams Machine Compositor Relationship Specialty Start Date End Date Megan Infante MD [address] [facility] [place] [address] PCP - General FAMILY PRACTICE 04/06/16 Piyush Pandey MD [place] Elevator Runner CARDIOVASCULAR DISEASE 04/06/16 12/28/23 Sharimla Davis APRN, RETAIL LINK ANALYST-C [address] [place] [address] [place] [address] NURSE PRACTITIONER 01/04/17 04/03/24 Zaki Ortiz MD [address] [facility] [address] [place] [address] Consulting Physician PULMONARY DISEASE 07/12/19 Concetta Acevedo MD [address] [place] [address] Surgeon NEUROLOGICAL SURGERY 12/16/22 Jeff Grace MD [address] [place] [address] Consulting Physician INTERNAL MEDICINE 02/11/23 documented as of this encounter
--- OUTSIDE RECORDS SUMMARY | 2024-09-03 20:37 | XMS_ITS | Encounter Summary ---
Author Organization [facility] Address [facility]6 [facility] [place] [address] [place] [address] Care Team Providers Care Piano Mechanic Name Role Phone Piyush Pandey MD Unavailable Unavailabl e Megan Infante MD Primary Care Provider [phone] Sharmila Davis APRN, NP-C Unavailable [phone] Zaki Ortiz MD Unavailable [phone] Concetta Acevedo MD Unavailable + [phone] Jeff Grace MD Unavailable Encounter Details Date Type Department Care Team (Latest Contact Info) Description 07/20/2023 Travel Social History Tobacco Use Types Packs/Day Years Used Date Smoking Tobacco: Former Smokeless Tobacco: Former Chew Alcohol Use Standard Drinks/Week Comments Yes 0 (1 standard drink = 0.6 oz pur e alcohol) 6 beers per week [facility] Utilities Answer Date Recorded In the past 12 months has [employer], gas, oil, or water [employer] threatened to shut off services in your [...] How often do you attend nondenominational or anglican serv ices? Patient declined 02/16/2023 [...] Date Author Status No 07/12/2023 6:58 PM AUTHORIZATION NURSE Liliana Gutierrez, RN Active documented in this encounter Plan of Treatment Upcoming Encounters Date Type Department Care Team (Late st Contact Info) Description 09/25/2024 2:00 PM AUTHORIZATION NURSE Appointment [facility] [address] [place] [address] Zayra Powell, VALVER [address] [facility] [place] [address] 10/16/2024 3:30 PM AUTHORIZATION NURSE Office Visit [facility] [address] [address] Brit Gonzáles MD [address] [place] [address] documented as of this encounter [...] documented as of this encounter Care Teams Piano Mechanic Relationship Specialty Start Date End Date Megan Infante MD [address] [facility] [place] [address] PCP - General FAMILY PRACTICE 04/06/16 Piyush Pandey MD Spencer Paste Up Artist Apprentice CARDIOVASCULAR DISEASE 04/06/16 12/28/23 Sharmila Davis APRN, NIGHT STOCKER-C [address] [place] [address] [address] [place] [address] NURSE PRACTITIONER 01/04/17 04/03/24 Zaki Ortiz MD [address] [facility] [address] [place] [address] Consulting Physician PULMONARY DISEASE 07/12/19 Concetta Acevedo MD [address] [place] [address] 227642 Surgeon NEUROLOGICAL SURGERY 12/16/22 Jeff Grace MD 619 [place] [address] Consulting Physician INTERNAL MEDICINE 02/11/23 documented as of this encounter
--- OUTSIDE RECORDS SUMMARY | 2024-09-03 20:37 | XMS_ITS | Encounter Summary ---
Author Organization [facility] Address [address] [place] [address]. [place] [address] [place] [address] Care Team Providers Care Band Ripsaw Operator Name Role Phone Piyush Pandey MD Unavailable Unavailabl e Megan Infante MD Primary Care Provider [phone] Sharmila Davis APRN, NP-C Unavailable Zaki Ortiz MD Unavailable [phone] Concetta Acevedo MD Unavailable + [phone] Jeff Grace MD Unavailable Encounter Details Date Type Department Care Team (Late st Contact Info) Description 08/10/2023 11:28 AM AUDIOVISUAL LEAD TECHNICIAN - 08/10/2023 11:59 PM [facility] Hospital Encounter [facility] [address] [facility] [place] [address] Theresa Sheriff PA-C [facility] [place] [address] Discharge Disposition: Home or Self Care (Routine Discharge) Social History Tobacco Use Types Packs/Day Years Used Date Smoking Tobacco: Former Smokeless Tobacco: Former Chew Alcohol Use Standard Drinks/Week Comments Yes 0 (1 standard drink = 0.6 oz pur e alcohol) 6 beers per week [facility] Utilities Answer Date Recorded In the past 12 months has [employer], gas, oil, or water company threatened [...] How often do you attend jewish or pentecostal serv ices? Patient declined 02/16/2023 [...] st Contact Info) Description 09/25/2024 2:00 PM AUDIOVISUAL LEAD TECHNICIAN Appointment [facility] [address] [facility] [place] [address] Zayra Powell, RESPIRATORY THERAPY INSTRUCTOR [address] [facility] [place] [address] 10/16/2024 3:30 PM AUDIOVISUAL LEAD TECHNICIAN Office Visit [facility] [place] [address] Brit Gonzáles MD [address] [place] [address] documented as of this encounter Goals Goal Patient Goal Type Associated Problems Recent Progress Patient-Stated? Author Family - family caregiver with be involved in care transitions and discharge planning Lifestyle Karen Diane RN documented as of this encounter Procedures Procedure Name Priority Date/Time Associated Diagnosis Comments RENAL FUNCTION PANEL Routine 08/10/2023 11:48 AM AUDIOVISUAL LEAD TECHNICIAN CKD (chronic kidney disease) stage 3, GFR 30-59 ml/min ([facility]) CBC W/DIFF AUTOMATED Routine 08/10/2023 11:48 AM AUDIOVISUAL LEAD TECHNICIAN CKD (chronic kidney disease) stage 3, GFR 30-59 ml/min ([facility]) ALBUMIN URINE RANDOM W/CREATININE Routine 08/10/2023 11:46 AM AUDIOVISUAL LEAD TECHNICIAN CKD (chronic kidney disease) stage 3, GFR 30-59 ml/min ([facility]) documented in this encounter Results * (ABNORMAL) RENAL FUNCTION PANEL (08/10/2023 11:48 AM [facility]) SODIUM S/P/B 135(L) 136 - 145 MMOL/L 08/10/2023 12:18 PM [facility] POTASSIUM S/P/B 4.6 3.5 - 5.1 MMOL/L 08/10/2023 12:18 PM [facility] CHLORIDE S/P/B 99 98 - 107 MMOL/L 08/10/2023 12:18 PM [facility] CO2 30.6 21.0 - 32.0 MMOL/L 08/10/2023 12:18 PM [facility] GLUCOSE 221(H) 70 - 99 MG/DL 08/10/2023 12:18 PM [facility] Comment: FASTING GLUCOSE 100 TO 125 MG/DL IS CONSISTENT WITH IMPAIRED FASTING GLUCOSE. FASTING GLUCOSE >125 MG/DL IS CONSISTENT WITH DIABETES. RANDOM GLUCOSE >200 MG/DL WITH HYPERGLYCEMIC SYMPTOMS IS CONSISTENT WITH DIABETES. PER ADA GUIDELINES BUN 42(H) 6 - 24 MG/DL 08/10/2023 12:18 PM [facility] CREATININE S/P/B 1.71(H) 0.70 - 1.30 MG/DL 08/10/2023 12:18 PM [facility] CALCIUM S/P/B 9.3 8.4 - 10.5 MG/DL 08/10/2023 12:18 PM [facility] ALBUMIN S/P/B 3.2(L) 3.4 - 5.0 G/DL 08/10/2023 12:18 PM [facility] PHOSPHORUS 4.7 2.6 - 4.7 MG/DL 08/10/2023 12:18 PM [facility] ANION GAP 5.4 5.0 - 15.0 MMOL/L 08/10/2023 12:18 PM [facility] OSMOLALITY (CALC) 297 MOSM/KG 023 12:18 PM [facility] Comment:REFERENCE RANGE NOT ESTABLISHED GFR ESTIMATE 43(L) >89 ML/MIN/1. 73 M2 08/10/2023 12:18 PM [facility] GFR NOTES GFR REFERENCE S: 08/10/2023 12:18 PM [facility] Comment: THE ESTIMATED GFR IS [...] <15 ml/min/1.73 m2 08/10/2023 11:4 8 AM AUDIOVISUAL LEAD TECHNICIAN us Theresa Sheriff PA-C LABORATORY Final Resu lt [facility] [address] [place] [address], * (ABNORMAL) CBC W/DIFF AUTOMATED (08/10/2023 11:48 AM AUDIOVISUAL LEAD TECHNICIAN) WBC 8.36 4.00 - 10.80 x10'3/uL 08/10/2023 12:16 PM AUDIOVISUAL LEAD TECHNICIAN [facility] RBC 4.39(L) 4.50 - 6.10 x10'6/uL 08/10/2023 12:16 PM AUDIOVISUAL LEAD TECHNICIAN [facility] HGB 9.8(L) 13.0 - 18.0 G/DL 08/10/2023 12:16 PM AUDIOVISUAL LEAD TECHNICIAN [facility] HCT 35.2(L) 37.0 - 52.0 % 08/10/2023 12:16 PM AUDIOVISUAL LEAD TECHNICIAN [facility] MCV 80.2 78.0 - 100.0 FL 08/10/2023 12:16 PM AUDIOVISUAL LEAD TECHNICIAN [facility] MCH 22.3(L) 27.0 - 31.0 PG 08/10/2023 12:16 PM AUDIOVISUAL LEAD TECHNICIAN [facility] MCHC 27.8(L) 33.0 - 36.0 G/DL 08/10/2023 12:16 PM [facility] RDW 18.9(H) 11.5 - 14.5 % 08/10/2023 12:16 PM AUDIOVISUAL LEAD TECHNICIAN [facility] PLT 218 150 - 350 x10'3/uL 08/10/2023 12:16 PM [facility] MPV 9.6 7.4 - 10.4 FL 08/10/2023 12:16 PM [facility] CBC COMMENT NORMAL REFERENCE RANGE NOT ESTABLISHED FOR THE PROPORTIONAL LEUKOCYTE DIFFERENTIAL. 08/10/2023 12:16 PM AUDIOVISUAL LEAD TECHNICIAN [facility] NEUTROPHILS % 66.0 % 08/10/2023 12:29 PM [facility] LYMPHOCYTES % 14.1 % 08/10/2023 12:29 PM [facility] MONOCYTES % 10.3 % 08/10/2023 12:29 PM [facility] EOSINOPHILS % 8.5 % 08/10/2023 12:29 PM AUDIOVISUAL LEAD TECHNICIAN [facility] BASOPHILS % 0.7 % 08/10/2023 12:29 PM AUDIOVISUAL LEAD TECHNICIAN [facility] IMMATURE GRANS % 0.4 % 08/10/20 12:29 PM AUDIOVISUAL LEAD TECHNICIAN [facility] NRBC 0.0 % 08/10/2023 12:29 PM [facility] ABS. NEUTROPHILS 5.52 1.60 - 8.30 x10'3/uL 08/10/2023 12:29 PM AUDIOVISUAL LEAD TECHNICIAN [facility] ABS. LYMPHOCYTES 1.18 0.80 - 4.70 x10'3/uL 08/10/2023 12:29 PM AUDIOVISUAL LEAD TECHNICIAN [facility] ABS. MONOCYTES 0.86 0.00 - 1.50 x10'3/uL 08/10/2023 12:29 PM AUDIOVISUAL LEAD TECHNICIAN [facility] ABS. EOSINOPHILS 0.71(H) 0.00 - 0.40 x10'3/uL 08/10/2023 12:29 PM AUDIOVISUAL LEAD TECHNICIAN [facility] ABS. BASOPHILS 0.06 0.00 - 0.20 x10'3/uL 08/10/2023 12:29 PM AUDIOVISUAL LEAD TECHNICIAN [facility] ABS. IMMATURE GRANULOCYTES 0.03 0.00 - 0.03 x10'3/uL 08/10/2023 12:29 PM AUDIOVISUAL LEAD TECHNICIAN [facility] ABS. NUCLEATED RBC'S 0.00 0.00 x10'3/uL 08/10/2023 12:29 PM [facility] PLT MORPH. NORMAL 08/10/2023 12:29 PM [facility] RBC MORPHOLOGY 2+ 08/10/2023 12:29 PM [facility] Comment: ANISOCYTOSIS 2+ HYPOCHROMASIA 08/10/2023 11:4 8 AM AUDIOVISUAL LEAD TECHNICIAN Theresa Sheriff PA-C LABORATORY Final Resu lt [facility] [address] [place] [address], * (ABNORMAL) ALBUMIN CREATININE URINE RANDOM (08/10/2023 11:46 AM AUDIOVISUAL LEAD TECHNICIAN) ALBUMIN (U) 2.0 MG/DL 08/10/2023 12:17 PM [facility] Comment:REFERENCE RANGE NOT ESTABLISHED CREATININE RANDOM (U) 38.8 MG/DL 08/10/2023 12:17 PM [facility] Comment:REFERENCE RANGE NOT ESTABLISHED ALBUMIN/CREAT RATIO 51.6(H) <30 MG/G 08/10/2023 12:17 PM [facility] Comment: NORMAL TO MILDLY INCREASED ALBUMINURIA: <30 MG/G MODERATELY INCREASED ALBUMINURIA: 30 TO 300 MG/G SEVERELY INCREASED ALBUMINURIA: >300 MG/G PER KDIGO URINE SPECIMEN / Unknown 08/10/2023 11:46 AM AUDIOVISUAL LEAD TECHNICIAN Theresa Sheriff PA-C URINE ORDERABLES Final Res ult [facility] [address] [place] [address], documented in this encounter Visit Diagnoses Diagnosis CKD (chronic kidney disease) stage 3, GFR 30-59 ml/min ([facility]) Chronic kidney disease, Stage III (moderate) documented in this encounter Additional Health Concerns Assessment Noted Time PHQ-9 Depression Total Score: 0 12/02/19 22 1:18 PM CDT documented as of this encounter Care Teams Band Ripsaw Operator Relationship Specialty Start Date End Date Megan Infante MD [address] [place] [phone] PCP - General FAMILY PRACTICE 04/06/16 Piyush Pandey MD [place] Director Transportation CARDIOVASCULAR DISEASE 04/06/16 12/28/23 Sharmila Davis APRN, APPRENTICE COOK-C [address] [facility] [address] [place] [address] NURSE PRACTITIONER 01/04/17 04/03/24 Zaki Ortiz MD [address] [facility] [address] [place] [address] Consulting Physician PULMONARY DISEASE 07/12/19 Concetta Acevedo MD [address] [place] [address] Surgeon NEUROLOGICAL SURGERY 12/16/22 Jeff Grace MD [address] [place] [address] Consulting Physician INTERNAL MEDICINE 02/11/23 documented as of this encounter
--- OUTSIDE RECORDS SUMMARY | 2024-09-03 20:37 | XMS_ITS | Encounter Summary ---
Author Organization [facility] Address [facility] [place] [address] [place] [address] Care Team Providers Care Clinical Psychologist Licensed Name Role Phone Piyush Pandey MD Unavailable Unavailabl e Meagn Infante MD Primary Care Provider [phone] Sharmila Davis APRN, NP-C Unavailable [phone] Zaki Ortiz MD Unavailable [phone] Concetta Acevedo MD Unavailable + [phone] Jeff Grace MD Unavailable Encounter Details Date Type Department Care Team (Latest Contact Info) Description 08/10/2023 Travel Social History Tobacco Use Types Packs/Day Years Used Date Smoking Tobacco: Former Smokeless Tobacco: Former Chew Alcohol Use Standard Drinks/Week Comments Yes 0 (1 standard drink = 0.6 oz pur e alcohol) 6 beers per week [facility] Utilities Answer Date Recorded In the past 12 months has [employer], gas, oil, or water [employer] threatened to shut off services in your [...] declined 02/16/2023 How often do you attend mormon or christianity serv ices? Patient declined 02/16/2023 Do you belong to any clubs o r organizations such as mormon groups, unions, fraternal or athletic groups, or [...] Date Author Status No 07/12/2023 6:58 PM CLAIMS DIRECTOR Liliana Gutierrez, RN Active documented in this encounter Plan of Treatment Upcoming Encounters Date Type Department Care Team (Late st Contact Info) Description 09/25/2024 2:[address] CLAIM[address] [facility] [address] [facility] [place] [address] Zayra Powell, DEV TECHNICAL MGR [address] [facility] [facility] [place] [address] 10/16/2024 3:30 PM CLAIMS DIRECTOR Office Visit [facility] [address] [facility] [place] [address] Brit Gonzáles MD 6[address] [place] [address] documented as of this encounter [...] as of this encounter Care Teams Clinical Psychologist Licensed Relationship Specialty Start Date End Date Megan Infante MD [address] [facility] [place] [address] PCP - General FAMILY PRACTICE 04/06/16 Piyush Pandey MD [place] Dot Etcher CARDIOVASCULAR DISEASE 04/06/16 12/28/23 Sharmila Davis APRN, FARMER CASH GRAIN-C [address] [place] [address] [address] [place] [address] NURSE PRACTITIONER 01/04/17 04/03/24 Zaki Ortiz MD [address] [facility] [address] [place] [address] Consulting Physician PULMONARY DISEASE 07/12/19 Concetta Acevedo MD [address] [place] [address] Surgeon NEUROLOGICAL SURGERY 12/16/22 Jeff Grace MD 619 [place] [address] Consulting Physician INTERNAL MEDICINE 02/11/23 documented as of this encounter
--- OUTSIDE RECORDS SUMMARY | 2024-09-03 20:37 | XMS_ITS | Encounter Summary ---
Author Organization [facility] Address [facility] [address] [place] [address] Care Team Providers Care Machine Lay Out Worker Name Role Phone Piyush Pandey MD Unavailable Unavailabl e Megan Infante MD Primary Care Provider [phone] Sharmila Davis APRN, NP-C Unavailable [phone] Zaki Ortiz MD Unavailable [phone] Concetta Acevedo MD Unavailable + [phone] Jeff Grace MD Unavailable Encounter Details Date Type Department Care Team (Latest Contact Info) Description 08/03/2023 Travel Social History Tobacco Use Types Packs/Day Years Used Date Smoking Tobacco: Former Smokeless Tobacco: Former Chew Alcohol Use Standard Drinks/Week Comments Yes 0 (1 standard drink = 0.6 oz pur e alcohol) 6 beers per week [facility] Utilities Answer Date Recorded In the past 12 months has [employer], gas, oil, or water [employer] threatened to shut off services in [...] often do you attend oriental orthodox or hindu serv ices? Patient declined 02/16/2023 [...] Date Author Status No 07/12/2023 6:58 PM COMMUNITY RELATIONS COORDINATOR Liliana Gutierrez, RN Active documented in this encounter Plan of Treatment Upcoming Encounters Date Type Department Care Team (Late st Contact Info) Description 09/25/2024 2:00 PM COMMUNITY RELATIONS COORDINATOR [facility]ointment [facility] [address] [facility] [place] [address] Zayra Powell, LOCOMOTIVE OPERATOR [address] [place] [address] 10/16/2024 3:30 PM COMMUNITY RELATIONS COORDINATOR Office Visit [facility] [address] [facility] [place] [address] Brit Gonzáles MD [address] [place] [address] documented as of this encounter [...] as of this encounter Care Teams Machine Lay Out Worker Relationship Specialty Start Date End Date Megan Infante MD [address] [place] [address] PCP - General FAMILY PRACTICE 04/06/16 Piyush Pandey MD [place] Buncher Machine CARDIOVASCULAR DISEASE 04/06/16 12/28/23 Sharmila Davis APRN, CONCRETE BUSTER OPERATOR-C [address] [place] [address] [address] [place] [address] NURSE PRACTITIONER 01/04/17 04/03/24 Zaki Ortiz MD [address] [facility] [address] [place] [address] Consulting Physician PULMONARY DISEASE 07/12/19 Concetta Acevedo MD [address] [place] [address]69[address] Surgeon NEUROLOGICAL SURGERY 12/16/22 Jeff Grace MD [address] [place] [address] Consulting Physician INTERNAL MEDICINE 02/11/23 documented as of this encounter
--- OUTSIDE RECORDS SUMMARY | 2024-09-03 20:37 | XMS_ITS | Encounter Summary ---
Author Organization [facility] Address [facility] [place] [address] [place] [address] Care Team Providers Care Advanced Developer Name Role Phone Piyush Pandey MD Unavailable Unavailabl e Megan Infante MD Primary Care Provider [phone] Sharmila Davis APRN, NP-C Unavailable Zaki Ortiz MD Unavailable [phone] Concetta Acevedo MD Unavailable + [phone] Jeff Grace MD Unavailable Reason for Visit * Reason Onset Date Comments Called To Cancel Office Appt. 10/11/2023 Encounter Details Date Type Department Care Team (Late st Contact Info) Description 10/11/2023 Telephone [facility] [address] [place] [address] Jeff Grace MD [address] [place], [place] [phone] Called To Cancel Office Appt. Social History Tobacco Use Types Packs/Day Years Used Date Smoking Tobacco: Former Smokeless Tobacco: Former Chew Alcohol Use Standard Drinks/Week Comments Yes 0 (1 standard drink = 0.6 oz pur e alcohol) 6 beers per week [facility] Utilities Answer Date Recorded In the past 12 months has [employer] electric, gas, oil, or water company threatened [...] How often do you attend cheondoism or rastafarian serv ices? Patient declined 02/16/2023 [...] move on to questions 3-9 0 12/01/2021 [facility] - [...] Assessment Author Status No 07/12/2023 6:58 PM HOME CONNECT LPN Liliana Gutierrez RN Active * Because of [...] HANDLED AND HOW: cancelling appointment for tomorrow CONNECT LPN documented in this encounter Plan of Treatment Upcoming Encounters Date Type Department Care Team (Late st Contact Info) Description 09/25/2024 2:00 PM HOME CONNECT LPN Appointment [facility] [address] [place] [address] Zayra Powell, WEED SCIENCE RESEARCH TECHNICIAN [address] [place] [address] 10/16/2024 3:30 PM HOME CONNECT LPN Office Visit [facility] [address] [place] [address] Brit Gonzáles MD [address] [place] [address] documented as of this encounter Goals Goal [...] documented as of this encounter Care Teams Advanced Developer Relationship Specialty Start Date End Date Megan Infante MD [address] [place] [address] PCP - General FAMILY PRACTICE 04/06/16 Piyush Pandey MD [place] Local Operator CARDIOVASCULAR DISEASE 04/06/16 12/28/23 Sharmila Davis, NATIONAL OPELINT ANALYST, PLAN MANAGER-C [address] [place] [address] NURSE PRACTITIONER 01/04/17 04/03/24 Zaki Ortiz MD [address] [place] [address] Consulting Physician PULMONARY DISEASE 07/12/19 Concetta Acevedo MD [address] [place] [address] 649552 Surgeon NEUROLOGICAL SURGERY 12/16/22 Jeff Grace MD [address] [place], [place] [address] Consulting Physician INTERNAL MEDICINE 02/11/23 documented as of this encounter
--- OUTSIDE RECORDS SUMMARY | 2024-09-03 20:37 | XMS_ITS | Encounter Summary ---
Author Organization [facility] Address [facility]6 [facility] [place] [address] [place] [address] Care Team Providers Care Supervisor Pullet Farm Name Role Phone Megan Infante MD Primary Care Provider [phone] Sharmila Davis APRN, NP-C Unavailable [phone] Zaki Ortiz MD Unavailable [phone] Concetta Acevedo MD Unavailable + [phone] Jeff Grace MD Unavailable Brit Gonzáles MD Unavailable Encounter Details Date Type Department Care Team (Late st Contact Info) Description 12/29/2023 Scan [facility] [address] [place] [address] Scanned, Doc Pccl Social History Tobacco Use Types Packs/Day Years Used Date Smoking Tobacco: Former Smokeless Tobacco: Former Chew Alcohol Use Standard Drinks/Week Comments Yes 0 (1 standard drink = 0.6 oz pur e alcohol) 6 beers per week [facility] Utilities Answer Date Recorded In the [...] How often do you attend mandaen or oriental orthodox serv ices? Patient declined 02/16/2023 Do [...] move on to questions 3-9 0 12/01/2021 [facility] [place] of Occupat ional Health - Occupational Stress [...] Assessment Author Status No 07/12/2023 6:58 PM ACOUSTICAL TILE DRILL PRESS OPERATOR Liliana Gutierrez RN Active documented as of this encounter Mental Status * Because of a physical, mental, or emotional condition, do you have serious difficulty concentrating, remembering, or making decisions? Answer Entry Date Author Status No 07/12/2023 6:58 PM ACOUSTICAL TILE DRILL PRESS OPERATOR Liliana Gutierrez RN Active documented in this encounter Plan of Treatment Upcoming Encounters Date Type Department Care Team (Late st Contact Info) Description 09/25/2024 2:00 PM ACOUSTICAL TILE DRILL PRESS OPERATOR Appointment [facility] [address] [facility] [place] [address] Zayra Powell, CRIME ANALYST [address] [facility] [place] [address] 10/16/2024 3:30 PM ACOUSTICAL TILE DRILL PRESS OPERATOR Office Visit [facility] [address] [facility] [place] [address] Brit Gonzáles MD [address] [place], [place] [address] documented as of this encounter Goals Goal [...] as of this encounter Care Teams Supervisor Pullet Farm Relationship Specialty Start Date End Date Megan Infante MD [address] [place] [address] PCP - General FAMILY PRACTICE 04/06/16 Sharmila Davis APRN, SALES STRATEGY MANAGER-C [address] [place] [address] [address] [place] [phone] NURSE PRACTITIONER 01/04/17 04/03/24 Zaki Ortiz MD [address] [place] [address] 47 [place] [address] Consulting Physician PULMONARY DISEASE 07/12/19 Concetta Acevedo MD [address] [place] [address] Surgeon NEUROLOGICAL SURGERY 12/16/22 Jeff Grace MD [address] [place] [address] 797941 Consulting Physician INTERNAL MEDICINE 02/11/23 Brit Gonzáles MD [address] [place] [address] Consulting Physician CARDIOVASCULAR DISEASE 12/29/23 documented as of this encounter
--- OUTSIDE RECORDS SUMMARY | 2024-09-03 20:37 | XMS_ITS | Encounter Summary ---
Author Organization [facility] Address [address] [place] [address]. [place] [address] [place] [address] Care Team Providers Care Museum Service Scheduler Name Role Phone Piyush Pandey MD Unavailable Unavailabl e Megan Infante MD Primary Care Provider [phone] Sharmila Davis APRN, NP-C Unavailable [phone] Zaki Ortiz MD Unavailable [phone] Concetta Acevedo MD Unavailable + [phone] Jeff Grace MD Unavailable Encounter Details Date Type Department Care Team (Late st Contact Info) Description 07/27/2023 11:00 AM POLITICAL RESEARCHER - 07/27/2023 11:59 PM [facility] Hospital Encounter [facility] [address] [place] [address] Zayra Powell, [facility] [address] [place] [address] Discharge Disposition: Home or Self Care (Routine Discharge) Social History Tobacco Use Types Packs/Day Years Used Date Smoking Tobacco: Former Smokeless Tobacco: Former Chew Alcohol Use Standard Drinks/Week Comments Yes 0 (1 standard drink = 0.6 oz pur e alcohol) 6 beers per week [facility] Utilities Answer Date Recorded In [...] declined 02/16/2023 How often do you attend denominational or bahai serv ices? Patient declined 02/16/2023 Do you belong to any clubs o r organizations such as denominational groups, unions, fraternal or athletic groups, or [...] 2:40 PM Actions taken: MAR administration accepted TICAL RESEARCHER documented in this encounter Plan of Treatment Upcoming Encounters Date Type Department Care Team (Late st Contact Info) Description 09/25/2024 2:00 PM POLITICAL RESEARCHER Appointment [facility] [address] [place] [address] Zayra Powell, BUSINESS OFFICE COORDINATOR [address] [place] [address] 10/16/2024 3:30 PM POLITICAL RESEARCHER Office Visit [facility] [address] [place] [phone] Brit Gonzáles MD [address] [place] [address] documented as of this encounter Goals Goal [...] subcutaneous tissue, unspecified Given 07/27/2023 11:00 AM POLITICAL RESEARCHER documented in this encounter Additional Health Concerns Assessment Noted Time PHQ-9 Depression Total Score: 0 12/02/19 22 1:18 PM CDT documented as of this encounter Care Teams Museum Service Scheduler Relationship Specialty Start Date End Date Megan Infante MD [address] [facility] [phone] PCP - General FAMILY PRACTICE 04/06/16 Piyush Pandey MD [place] Rescue Instructor CARDIOVASCULAR DISEASE 04/06/16 12/28/23 Sharmila Davis APRN, SHOE STAMPER-C [address] [place] [phone] NURSE PRACTITIONER 01/04/17 04/03/24 Zaki Ortiz MD [address] [place] [phone] Consulting Physician PULMONARY DISEASE 07/12/19 Concetta Acevedo MD [address] [place] [address] 102732 Surgeon NEUROLOGICAL SURGERY 12/16/22 Jeff Grace MD [address] [place] [address] Consulting Physician INTERNAL MEDICINE 02/11/23 documented as of this encounter
--- OUTSIDE RECORDS SUMMARY | 2024-09-03 20:37 | XMS_ITS | Encounter Summary ---
Author Organization [facility] Address [facility] [place] [address] [place] [address] Care Team Providers Care Director Integrated Name Role Phone Megan Infante MD Primary Care Provider [phone] Sharmila Davis APRN, NP-C Unavailable [phone] Zaki Ortiz MD Unavailable [phone] Concetta Acevedo MD Unavailable + [phone] Jeff Grace MD Unavailable Jayce Younger MD Unavailable Encounter Details Date Type Department Care Team (Late st Contact Info) Description 01/27/2024 Orders Only [facility] [address] [place], [place] [phone] Jayce Younger MD [address] [place] [address] Social History Tobacco Use Types Packs/Day Years Used Date Smoking Tobacco: Former Smokeless Tobacco: Former Chew Alcohol Use Standard Drinks/Week Comments Yes 0 (1 standard drink = 0.6 oz pur e alcohol) 6 beers per week [facility] Utilities Answer Date Recorded In [...] How often do you attend confucianist or hindu serv ices? Patient declined 02/16/2023 [...] Assessment Author Status No 07/12/2023 6:58 PM TANK CARPENTER Brenda, Liliana A, RN Active * Because [...] Contact Info) Description 09/25/2024 2:00 PM TANK CARPENTER Appointment [facility] [address] [place] [address] Zayra Powell, ARCHITECTURE PROFESSOR [address] [place] [address] 10/16/2024 3:30 PM TANK CARPENTER Office Visit [facility] [address] [place] [address] Jayce Younger MD [address] [place] [address]229 documented as of this encounter Goals Goal Patient Goal Type Associated Problems Recent Progress Patient-Stated? Author Family - family caregiver with be involved in care transitions and discharge planning Lifestyle No Karen Quezada RN documented as of this encounter Results * ECG 12 lead (HOSPITAL PERFORMED ONLY) (01/31/2024 11:11 AM CDT) 01/31/2024 11:1 1 AM CDT Narrative [facility] - 02/01/2024 6:16 AM CDT ? [facility] ?[address] [place] ??[address] ? Test Date: ?2024-01-31 Pat Name: ? OBIE SIMS ?Department: ?? 3 ? Room: ? Gender: ? Male ? Furniture Technician: ?? : ?1955 ? Requested By: JAYCE YOUNGER Order Number: [id number] ? Reading MD: ?? Jayce Younger ? Measurements Intervals ?[place] ? Rate: ? 71 ? P: ? VA: ? 0 ?QRS: ?101 QRSD: ? 135 ?T: ?259 QT: ? 406 ? QTc: ?441 ? Interpretive Statements ATRIAL FIBRILLATION INTRAVENTRICULAR CONDUCTION DELAY POSSIBLE RIGHT VENTRICULAR HYPERTROPHY Procedure Note Jayce Younger MD - 02/01/2024 [facility] [address] [place] [address] Test Date: 2024-01-31 Pat Name: OBIE SIMS Department: 3 Room: Gender: Male Furniture Technician: : 1955 Requested By: JAYCE YOUNGER Order Number: [id number] Reading MD: Jayce Younger Measurements Intervals [place] Rate: 71 P: VA: 0 QRS: 101 QRSD: 135 T: 259 QT: 406 QTc: 441 Interpretive Statements ATRIAL FIBRILLATION INTRAVENTRICULAR CONDUCTION DELAY POSSIBLE RIGHT VENTRICULAR HYPERTROPHY us Jayce Younger MD ECG ORDERABLES Final Result [facility] documented in this encounter Visit [...] as of this encounter Care Teams Director Integrated Relationship Specialty Start Date End Date Megan Infante MD [address] [place] [phone] PCP - General FAMILY PRACTICE 04/06/16 Sharmila Davis, HEALTH TECHNICIAN, REGRINDER-C [address] [facility] [address] [place] [address] NURSE PRACTITIONER 01/04/17 04/03/24 Zaki Ortiz MD [address] [place] [address] [phone] Consulting Physician PULMONARY DISEASE 07/12/19 Concetta Acevedo MD [address] [place] [address] Surgeon NEUROLOGICAL SURGERY 12/16/22 Jeff Grace MD [address] [place] [address] Consulting Physician INTERNAL MEDICINE 02/11/23 Jayce Younger MD [address] [place] [address] Consulting Physician CARDIOVASCULAR DISEASE 12/29/23 documented as of this encounter
--- OUTSIDE RECORDS SUMMARY | 2024-09-03 20:37 | XMS_ITS | Encounter Summary ---
Author Organization [facility] Address [address] [place] [address]. [place] [address] [place] [address] Care Team Providers Care Rail Car Unloader Name Role Phone Piyush Pandey MD Unavailable Unavailabl e Megan Infante MD Primary Care Provider [phone] Sharmila Davis APRN SEED CUTTER-C Unavailable [phone] Zaki Ortiz MD Unavailable [phone] Concetta Acevedo MD Unavailable + [phone] Jeff Grace MD Unavailable Encounter Details Date Type Department Care Team (Late st Contact Info) Description 07/20/2023 9:52 AM PRINTING EQUIPMENT MECHANIC APPRENTICE - 07/20/2023 11:10 AM [facility] Hospital Encounter [facility] [address] [place] [address] Maren Powell, [facility] [address] [place] [address] Discharge Disposition: Home or Self Care (Routine Discharge) Social History Tobacco Use Types Packs/Day Years Used Date Smoking Tobacco: Former Smokeless Tobacco: Former Chew Alcohol Use Standard Drinks/Week Comments Yes 0 (1 standard drink = 0.6 oz pur e alcohol) 6 beers per week [facility] Utilities [...] often do you attend latter day or mormonism serv ices? Patient declined 02/16/2023 [...] move on to questions 3-9 0 12/01/2021 [facility] - Occupational [...] 11:34 AM Actions taken: MAR administration accepted TING EQUIPMENT MECHANIC APPRENTICE * Eveline Manning - 07/20/2023 10:00 AM CSTEncounter addended by: Eveline Manning on: 07/26/2023 12:14 PM Actions taken: Charge Capture section accepted TING EQUIPMENT MECHANIC APPRENTICE documented in this encounter Plan of Treatment Upcoming Encounters Date Type Department Care Team (Late st Contact Info) Description 09/25/2024 2:00 PM PRINTING EQUIPMENT MECHANIC APPRENTICE Appointment [facility] [address] [place] [address] Maren Powell, SURVEY DIRECTOR [address] [place] [address] 10/16/2024 3:30 PM PRINTING EQUIPMENT MECHANIC APPRENTICE Office Visit [facility] [place] [phone] Brit Gonzáles MD [address] [place] [address] documented as of this encounter Goals Goal Patient Goal Type Associated Problems Recent Progress Patient-Stated? Author Family - family caregiver with be involved in care transitions and discharge planning Lifestyle No Karen Quezada RN documented as of this encounter Procedures Procedure Name Priority Date/Time Associated Diagnosis Comments PATHOLOGY Routine 07/20/2023 12:00 AM PRINTING EQUIPMENT MECHANIC APPRENTICE Skin lesion documented in this encounter Results * Pathology (07/20/2023 12:00 AM PRINTING EQUIPMENT MECHANIC APPRENTICE) PATHOLOGY [facility] ? Department of Laboratory Medicine ?[address] [facility] ?[place] [address] ? , extension [phone] ? Pathology Report ? Surgical Pathology Report Name: OBIE SIMS ?Specimen #: [id number] Age: 12 1955 (Age: 67) ? Location: Sex: M ?Procedure Date: 07/20/2023 Hospital #: [id number] ?Date Received: 07/21/2023 Date Reported: 07/27/2023 Provider: [...] developed and its performance characteristics determined by [facility]. It has not been cleared or approved by the U.S. Food and Drug Administration. However, the use of Analyte Specific Reagents does not require FDA approval. Gross examination (when applicable), interpretation and sign-out were performed at [facility], [address] [place] [address], [place], [place], [address]. FINAL DIAGNOSIS: A) SKIN, LEFT LOWER LEG [...] Electronically Signed Out ? CONNER EDWARDS MD [facility] 07/20/2023 07/21/2023 11: 40 AM PRINTING EQUIPMENT MECHANIC APPRENTICE Comment:Skin, left lower leg center, biopsy&Skin, left lower leg outer margin, biopsy Maren Powell SURVEY DIRECTOR PATHOLOGY/CYTOLOGY ORDERABLES Final Result [facility] [address] [place] [address], [id number] documented in this encounter Visit Diagnoses Diagnosis [...] skin (CMS/HCC HHS/HCC) Given 07/20/2023 11:30 AM PRINTING EQUIPMENT MECHANIC APPRENTICE lidocaine-EPINEPHrine 1 %-1:[id number] injection 1 mL 1 mL, Other, Once, 1 dose, On Wed07/20/23 at 1145Indications:Skin lesion Given 07/20/2023 11:29 AM PRINTING EQUIPMENT MECHANIC APPRENTICE 1 mL documented in this encounter Additional Health Concerns Assessment Noted Time PHQ-9 Depression Total Score: 0 12/02/19 22 1:18 PM CDT documented as of this encounter Care Teams Rail Car Unloader Relationship Specialty [place] [address] [place] [address] [place] [address] PCP - General FAMILY PRACTICE 04/06/16 Piyush Pandey MD [place] Inspector And Hand Packager CARDIOVASCULAR DISEASE 04/06/16 12/28/23 Sharmila Davis APRN, SEED CUTTER-C [address] [phone] NURSE PRACTITIONER 01/04/17 04/03/24 Zaki Ortiz MD [address] [place] [phone] Consulting Physician PULMONARY DISEASE 07/12/19 Concetta Acevedo MD [address] [place] [address] Surgeon NEUROLOGICAL SURGERY 12/16/22 Jeff Grace MD [address] [place], [place] [address] Consulting Physician INTERNAL MEDICINE 02/11/23 documented as of this encounter
--- OUTSIDE RECORDS SUMMARY | 2024-09-03 20:37 | XMS_ITS | Encounter Summary ---
Author Organization [facility] Address [facility] [place] [place] [address] [place] [address] Care Team Providers Care Paint Prep Technician Name Role Phone Piyush Pandey MD Unavailable Unavailabl Megan Leos MD Primary Care Provider [phone] Sharmila Davis APRN TETRYL BOILING TUB OPERATOR-C Unavailable [phone] Zaki Ortiz MD Unavailable [phone] Concetta Acevedo MD Unavailable + [phone] Jeff Grace MD Unavailable Reason for Referral * Imaging (Routine) - Closed Specialty Diagnoses / Procedures Referred By Contac t Referred To Contact RADIOLOGY Diagnoses CKD (chronic kidney disease) stage 3, GFR 30-59 ml/min ([facility]/HCC HHS/HCC) Decreased GFR Procedures US RETROPERITONEAL COMP Katina Beltran MD Phone: tel: fax: Referral ID Status Reason Start Date Expiration Date Visits Re quested Visits Authorized [id number] Closed 08/02/2023 08/02/2024 1 1 ISHER Reason for Visit * Imaging (Routine) - Closed Specialty Diagnoses / Procedures Referred By Contac t Referred To Contact RADIOLOGY Diagnoses CKD (chronic kidney disease) stage 3, GFR 30-59 ml/min ([facility]/HCC HHS/HCC) Decreased GFR Procedures US RETROPERITONEAL COMP Katina Beltran MD Phone: tel: fax: Referral ID Status Reason Start Date Expiration Date Visits Re quested Visits Authorized [id number] Closed 08/02/2023 08/02/2024 1 1 Encounter Details Date Type Department Care Team (Late st Contact Info) Description 08/06/2023 1:27 PM BURNISHER - 08/06/2023 11:59 PM BURNISHER Hospital Encounter [facility] [address] [place] [address] Katina Beltran MD [address] [place] [phone] Discharge Disposition: Home or Self Care (Routine Discharge) Social History Tobacco Use Types Packs/Day Years Used Date Smoking Tobacco: Former Smokeless Tobacco: Former Chew Alcohol Use Standard Drinks/Week Comments Yes 0 (1 standard drink = 0.6 oz pur e alcohol) 6 beers per week [facility] Utilities Answer Date Recorded In the past 12 months has [employer], gas, oil, or water [employer] threatened to shut off services in your [...] declined 02/16/2023 How often do you attend yazdanism or anabaptism serv ices? Patient declined 02/16/2023 Do you belong to any clubs o r organizations such as yazdanism groups, unions, fraternal or athletic groups, or [...] move on to questions 3-9 0 12/01/2021 [facility] - Occupational Stress [...] st Contact Info) Description 09/25/2024 2:[address] [facility] [address] [place] [address] Zayra Powell, SOCCER REFEREE [address] [facility] [place] [address] 10/16/2024 3:30 PM BURNISHER Office Visit [facility] [address] [place] [phone] Brit Gonzáles MD [address] [place] [address] documented as of this encounter Goals Goal Patient Goal Type Associated Problems Recent Progress Patient-Stated? Author Family - family caregiver with be involved in care transitions and discharge planning Lifestyle No Karen Quezada RN documented as of this encounter Procedures Procedure Name Priority Date/Time Associated Diagnosis Comments US RETROPERITONEAL COMP Routine 08/06/20 2:06 PM BURNISHER CKD (chronic kidney disease) stage 3, GFR 30-59 ml/min ([facility]) Decreased GFR documented in this encounter Results * US RETROPERITONEAL COMP (08/06/2023 2:06 PM BURNISHER) Anatomical Region Laterality Modality Abdomen Ultrasound 08/07/2023 2:11 AM BURNISHER Impressions 08/07/2023 2:14 AM BURNISHER IMPRESSION: Increased cortical echogenicity consistent with medical renal disease. ??Bilateral renal cysts. ??Negative for hydronephrosis. Prostatic enlargement. ??Significant post void urinary bladder residual. Referred By: KATINA BELTRAN Interpreted By: Zaki Antoine MD, 08/07/2023 2:11 AM Narrative 08/07/2023 2:14 AM BURNISHER Retroperitoneal ultrasound complete INDICATION: Stage III renal [...] x 4.9 cm and the left kidney xdvsvzuc45.9 x 6.4 x 4.2 cm. Renal volumes [...] kidney disease) stage 3, GFR 30-59 ml/min ([facility]) Chronic kidney disease, Stage III (moderate) Decreased GFR Nonspecific abnormal results of kidney function study documented in this encounter Additional Health Concerns Assessment Noted Time PHQ-9 Depression Total Score: 0 12/02/19 22 1:18 PM CDT documented as of this encounter Care Teams Paint Prep Technician Relationship Specialty [place] [address] [place] [address] [place] [address] PCP - General FAMILY PRACTICE 04/06/16 Piyush Pandey MD [place] Refrigerator Mover CARDIOVASCULAR DISEASE 04/06/16 12/28/23 Sharmila Davis APRN, TETRYL BOILING TUB OPERATOR-C [address] [phone] NURSE PRACTITIONER 01/04/17 04/03/24 Zaki Ortiz MD [address] [place] [phone] Consulting Physician PULMONARY DISEASE 07/12/19 Concetta Acevedo MD [address] [place] [address] Surgeon NEUROLOGICAL SURGERY 12/16/22 Jeff Grace MD [address] [place], [place] [address] Consulting Physician INTERNAL MEDICINE 02/11/23 documented as of this encounter
--- OUTSIDE RECORDS SUMMARY | 2024-09-03 20:37 | XMS_ITS | Encounter Summary ---
Author Organization [facility] Address [facility] [place] [address] [place] [address] Care Team Providers Care Mortgage Processing Manager Name Role Phone Piyush Pandey MD Unavailable Unavailabl e Megan Infante MD Primary Care Provider [phone] Sharmila Davis APRN, NP-C Unavailable [phone] Zaki Ortiz MD Unavailable [phone] Concetta Acevedo MD Unavailable + [phone] Jeff Grace MD Unavailable Encounter Details Date Type Department Care Team (Latest Contact Info) Description 11/17/2023 Travel Social History Tobacco Use Types Packs/Day Years Used Date Smoking Tobacco: Former Smokeless Tobacco: Former Chew Alcohol Use Standard Drinks/Week Comments Yes 0 (1 standard drink = 0.6 oz pur e alcohol) 6 beers per week [facility] Utilities Answer Date Recorded In the past 12 months has [facility], gas, oil, or water [employer] threatened to shut off services in your [...] How often do you attend judaism or jehovah's witness serv ices? Patient declined 02/16/2023 Do you [...] Date Author Status No 07/12/2023 6:58 PM INTERIOR DESIGN FACULTY MEMBER Liliana Gutierrez, RN Active documented in this encounter Plan of Treatment Upcoming Encounters Date Type Department Care Team (Late st Contact Info) Description 09/25/2024 2:00 PM INTERIOR DESIGN FACULTY MEMBER Appointment [facility] [address] [facility] [place] [address] Zayra Powell, GENETIC SCIENTIST [address] [facility] [place] [address] 10/16/2024 3:30 PM INTERIOR DESIGN FACULTY MEMBER Office Visit [facility] [address] [place] [address] Brit Gonzáles MD [address] [place] [address] documented as of this encounter Goals Goal Patient Goal Type Associated Problems Recent Progress Patient-Stated? Author Family - family caregiver with be involved in care transitions and discharge planning Lifestyle No Kaern Quezada, YUNI documented as of this encounter Visit Diagnoses Not on filedocumented in this encounter Additional Health Concerns Assessment Noted Time PHQ-9 Depression Total Score: 0 12/02/19 22 1:18 PM CDT documented as of this encounter Care Teams Mortgage Processing Manager Relationship Specialty Start Date End Date Megan Infante MD [address] [facility] [place] [address] PCP - General FAMILY PRACTICE 04/06/16 Piyush Pandey MD [place] Family Intervention Specialist CARDIOVASCULAR DISEASE 04/06/16 12/28/23 Sharmila Davis APRN, RETAIL MERCHANDISER-C [address] [place] [address] [address] [place] [address] NURSE PRACTITIONER 01/04/17 04/03/24 Zaki Ortiz MD [address] [facility] [address] [place] [address] Consulting Physician PULMONARY DISEASE 07/12/19 Concetta Acevedo MD [address] [place] [address] Surgeon NEUROLOGICAL SURGERY 12/16/22 Jeff Grace MD [address] [place] [address] Consulting Physician INTERNAL MEDICINE 02/11/23 documented as of this encounter
--- OUTSIDE RECORDS SUMMARY | 2024-09-03 20:38 | XMS_ITS | Encounter Summary ---
Author Organization [facility] Address [facility] [place] [address] [place] [address] Care Team Providers Care Mold Capper Helper Name Role Phone Amauri Pandey MD Unavailable Unavailabl e Megan Infante MD Primary Care Provider [phone] Sharmila Davis APRN, NP-C Unavailable [phone] Linda Block MD Unavailable [phone] Zaki Ortiz MD Unavailable [phone] RomeoConcetta Pond MD Unavailable [phone] Jeff Grace MD Unavailable Reason for Referral * (Routine) - Closed Specialty Diagnoses / Procedures Referred By Contac t Referred To Contact Procedures OT Eval and Treat [facility] [address] [place] [address] Phone: tel: Referral ID Status Reason Start Date Expiration Date Visits Re quested Visits Authorized [id number] Closed 02/18/2023 02/19/2024 1 1 * (Routine) - Closed Specialty Diagnoses / Procedures Referred By Contac t Referred To Contact Procedures PT Eval and Treat [facility] [address] [place] [address] Phone: tel: Referral ID Status Reason Start Date Expiration Date Visits Re quested Visits Authorized [id number] Closed 02/18/2023 02/19/2024 1 1 * (Routine) - Closed Specialty Diagnoses / Procedures Referred By Yung t Referred To Contact Procedures OT Lianne and Segundo Lewis MD Phone: tel: fax: Referral ID Status Reason Start Date Expiration Date Visits Re quested Visits Authorized [id number] Closed 02/16/2023 02/17/2024 1 1 * (Routine) - Closed Specialty Diagnoses / Procedures Referred By Yung t Referred To Contact Procedures PT EvSegundo Chopra MD Phone: tel: fax: Referral ID Status Reason Start Date Expiration Date Visits Re quested Visits Authorized [id number] Closed 02/16/2023 02/17/2024 1 1 Reason for Visit * Auth/Cert (Routine) Specialty Diagnoses / Procedures Referred By Yung t Referred To Contact Diagnoses NSTEMI (non-ST elevated myocardial infarction) ([facility]/HCC [facility]/HCC) multiple falls, NSTEMI, Hyperglycemic (over 500) NSTEMI (non-ST elevated myocardial infarction) ([facility]) Procedures NONE Segundo Montana MD [address] [place] [address] Phone: tel: fax: Referral ID Status Reason Start Date Expiration Date Visits Re quested Visits Authorized [id number] 1 1 Encounter Details Date Type Department Care Team (Latest Contact Info) Description 02/16/2023 3:08 AM CDT - 02/18/2023 1:26 PM CDT Hospital Encounter [facility] [address] [place] [address] Segundo Montana MD 1 [facility] [address] Daniel Dupree MD [address] [place] [address] Discharge Disposition: Home with Home Health Care [...] How often do you attend worship or islam serv ices? Patient declined 02/16/2023 [...] CDTSummary: Discharge Summary Patient ID: Obie Sims [id number] 67-year-old 1955 Admit date: 02/16/2023 Expected Discharge Date: 02/18/2023 Primary care Physician: MEGAN INFANTE MD Admitting Physician: Segundo Montana MD Discharge Physician: Daniel Dupree MD Admission Diagnoses: NSTEMI (non-ST elevated myocardial infarction) ([facility]) [I21.4] Discharge Diagnoses: Elevated Trop, flat, downtrending, [...] chronic heart failure, unspecified heart failure type ([facility]) Anxiety Aortic valve stenosis Arthritis Asthma, mild persistent 04/06/2021 Atrial fibrillation ([facility]) s/p PVI/WACA 10/2015 Bilateral leg pain Carotid disease, bilateral (CMS/HCC) CHF (congestive heart failure) (CMS/HCC) Claudication ([facility]/HCC) COPD (chronic obstructive pulmonary disease) ([facility]/HCC) Coronary artery disease Diabetes mellitus, type II (CMS/HCC) Edema 04/19/2018 2+ pitting History of blood transfusion Hyperlipidemia Hypertension LV dysfunction Osteoarthritis PAD (peripheral artery disease) (CMS/HCC) Pneumonia Restless leg syndrome S/P aortic valve replacement with bioprosthetic valve 2013 SOB (shortness of breath) Stroke ([facility]) Varicose veins of bilateral lower extremities with other complications Weight gain with edema Past Surgical History: Procedure Laterality Date APPENDECTOMY CARDIAC VALVE REPLACEMENT 1999 CARDIAC VALVE REPLACEMENT 2013 CARDIOVERSION EXTERNAL 10/01/2015 CARDIOVERSION EXTERNAL 04/14/2012 COLONOSCOPY N/A 03/18/2021 COLONOSCOPY (Incomplete) performed by Kilo Navarro MD at [facility] OR COLONOSCOPY N/A 01/27/2022 COLONOSCOPY WITH COLD SNARE POLYPECTOMY performed by Kilo Navarro MD at [facility] OR HIP ARTHROPLASTY Left KNEE ARTHROPLASTY [...] malaise, and hyperglycemia. Pt recently discharged from [facility] on 02/09after admission for falls and found to have rib fractures and discharged to swing unit. He was found to have elevated Trop and was transferred to [facility] for the same. CTH and CT cervical [...] none needed Follow up: [place] [address] [place] [address] [place] [phone] Schedule an appointment as soon as possible for a visit in 1 week(s) I personally spent a total of 35 minutes on the day of the encounter. This includes eyct-ge-jqkm and pta-cofd-rt-face time I provided on the day of the encounter & excludes time spent performing separately reportable services. Thank you for allowing [facility] hospitalist service to take care of your patient, Please call [phone] ext [phone] if you have any questions [...] (81 mg total) by mouth daily. 04/18/2014 camphor-menthol (SARNA) lotion Apply topically 2 (two) times a day. 3 furosemide (LASIX) 40 MG tablet Take 1 tablet (40 mg total) by mouth daily. 30 tablet 02/18/2023 3 gabapentin (NEURONTIN) 100 MG capsule Take 6 capsules (600 mg total) by mouth daily. 12/14/2022 3 HYDROcodone-acet aminophen (NORCO) 7.5-325 MG tablet Take 1 tablet by mouth every 8 (eight) hours as needed for Pain. 3 insulin detemir (LEVEMIR FLEXPEN) 100 UNIT/ML PEN Inject 15 Units into the skin nightly at bedtime. 9 mL 02/09/2023 4 lidocaine 4 % patch Place 1 patch onto the skin daily. Remove & Discard patch within 12 hours or as directed by 30 patch 02/10/2023 3 metOLazone (ZAROXOLYN) 2.5 MG tablet Take 1 tablet (2.5 mg total) by mouth twice a week. 30 tablet 02/18/2023 3 mupirocin (BACTROBAN) 2 % ointment Apply 1 Application topically 2 (two) times daily. 12/14/2022 3 rOPINIRole (REQUIP) 4 MG tablet Take 1 tablet (4 mg total) by mouth nightly at bedtime. 10/17/2022 4 spironolactone (ALDACTONE) 25 MG tablet Take 1 tablet (25 mg total) by mouth daily. 09/05/2022 3 warfarin (COUMADIN) 1 MG tablet Take [...] Physician present for group conference Dr Dupree [facility] Barriers to Discharge Barriers Other (Comment) Other (Comment)follow up dc today [facility] notified of dc today. They will see orders in [facility] Daughter will transport * Amauri Pandey [...] assistance No skilled P/T Activity Recommendation for high raw sugar boiler: Up with modified independence using wh/walker 02/18/23 [...] New orders received and CM called - [employer] requesting newtherapy evaluations for possible swing bed [...] his daughter is an OT in the [employer] so sheis off for the summer [...] Name: Obie Sims Primary Language of learner: Macanese Patient was educated on transfers balance bed [...] Recommendation: home with assistance Activity Recommendation for high raw sugar boiler: Up with 1 2ww GB 02/18/23 0856 [...] his daughter is an OT in the [employer] so sheis off for the summer [...] Name: Obie Sims Primary Language of learner: Macanese Patient educated on precautions transfers ADLs balance bed mobility equipment therapy plan gait safety joint protection. Education was completed one to one verbal hands-on this date. Preference of learning new concepts one to one verbal hands-on Barriers to education this date were anxious. Response to education this date verbalized understanding. * Aaliyah BartonD, [facility] - 02/18/2023 9:18 AM CDT Warfarin - Pharmacy Dosing Service Note Obie Sims is a 67-year-old male for which pharmacy has been consulted to dose warfarin for A.fib. Goal INR is 2-3. Warfarin Order Set Activated: Yes Warfarin Start Date: continuation from home Past Medical History: Diagnosis Date Abnormal ankle brachial index (STELLA) Acute on chronic heart failure, unspecified heart failure type ([facility]) Anxiety Aortic valve stenosis Arthritis Asthma, mild persistent 04/06/2021 Atrial fibrillation ([facility]) s/p PVI/WACA 10/2015 Bilateral leg pain Carotid disease, bilateral ([facility]) CHF (congestive heart failure) ([facility]) Claudication ([facility]) COPD (chronic obstructive pulmonary disease) ([facility]) Coronary artery disease Diabetes mellitus, type II ([facility]) Edema 04/19/2018 2+ pitting History of blood transfusion Hyperlipidemia Hypertension LV dysfunction Osteoarthritis PAD (peripheral artery disease) ([facility]) Pneumonia Restless leg syndrome S/P aortic valve replacement with bioprosthetic valve 2013 SOB (shortness of breath) Stroke ([facility]) Varicose veins of bilateral lower extremities [...] to dose per Dr. Leia Presley, PharmD, [facility] Phone number: [phone] 02/18/2023 9:18 AM * Radha Clayton, PharmD [...] chronic heart failure, unspecified heart failure type ([facility]/HCC) Anxiety Aortic valve stenosis Arthritis Asthma, mild persistent 04/06/2021 Atrial fibrillation ([facility]) s/p PVI/WACA 10/2015 Bilateral leg pain Carotid disease, bilateral ([facility]) CHF (congestive heart failure) ([facility]) Claudication ([facility]) COPD (chronic obstructive pulmonary disease) ([facility]) Coronary artery disease Diabetes mellitus, type II ([facility]) Edema 04/19/2018 2+ pitting History of blood transfusion Hyperlipidemia Hypertension LV dysfunction Osteoarthritis PAD (peripheral artery disease) ([facility]) Pneumonia Restless leg syndrome S/P aortic valve replacement with bioprosthetic valve 2013 SOB (shortness of breath) Stroke ([facility]) Varicose veins of bilateral lower extremities [...] per Dr. Leia CLAYTON, PharmD Phone number: [phone] 02/17/2023 2:06 PM * Lulu Rizzo RN - 02/17/2023 1:19 PM CDT RN notified that patient's daughter was in patient's room had some questions about discharge planning. CM meet with patient and his daughter, Bonnie at bedside. Patient's daughter states patient recently had spent four days at [facility] Swing bed unit before he was discharge to home. States patient has had two falls since he been discharged. States she has concerns with patient discharging to home and would like a referral sent to [facility]. ESTIVEN doc halo director case management at [facility] unit to notify of referral. CM will continue to follow and assist with discharge planning. Lulu Rizzo RN CM 5 Cardiac Credit Balance Specialist ext. [phone] * Cara Mills RN - 02/17/2023 11:30 AM CDT 02/17/23 1129 Therapeutic Exercise Unable to Treat Other Therapeutic Exercise Comment Therapeutic Exercise Comment Cardiac rehab available for education and activity as appropriate. If desired please order our services. * Daniel Dupree MD - 02/17/2023 10:58 AM CDTSummary: Progress Note [facility] Hospitalist Progress Note: CC: Follow up on [...] malaise, and hyperglycemia. Pt recently discharged from [facility] on 02/09after admission for falls and found to have rib fractures and discharged to swing unit. He was found to have elevated Trop and was transferred to [facility] for the same. CTH and CT cervical [...] the day of the encounter. This includes kvld-ic-bnsh and lkr-txtp-eu-face time I provided on the day of the encounter & excludes time spent performing separately reportable services. Daniel Dupree MD 10:58 AM 02/17/2023 * Julia Maurer PA-C - 02/17/2023 9:30 AM CDT Obie Sims is a 67-year-old male patient. Primary Handcrew Foreman: Dr Pandey SUBJECTIVE: Elevated troponin, history of [...] Principal Problem: NSTEMI (non-ST elevated myocardial infarction) (CMS/[facility]) SNOMED CT(R): MYOCARDIAL INFARCTION Current Facility-Administered Medications [...] encounter of 02/16/23 ECG 12 lead Narrative [address] [address] Test Date: 2023-02-16 Pat Name: OBIE SIMS Department: 1 Room: 506AA Gender: Male Under Seal Operator: : 1955 Requested By: SEGUNDO MONTANA Order Number: [id number] Reading MD: Karolina Parekh Measurements Intervals [place] Rate: 83 P: -7 SC: 263 QRS: -39 QRSD: 151 T: 130 [...] RN - 02/17/2023 9:22 AM CDT 02/17/23 0069 Interdisciplinary Group Conference Team Members Present Physician;Case/Care management Physician present for group conference Dr. Addis Dupree -[facility] Barriers to Discharge Barriers Not Medically ready Not Medically ready follow up Start on oral lasix today and monitor renal function. Possible ready for discharge tomorrow. Patient live with daughter and is current with [facility]. [facility] provides home oxygen. CM following for discharge needs. Lulu Rizzo RN CM 5 Cardiac Credit Balance Specialist ext. [phone] * Daniel Dupree MD - 02/16/2023 12:49 PM CDTSummary: Progress Note--Same day non-billable [facility] Hospitalist Progress Note: CC: Follow up on [...] malaise, and hyperglycemia. Pt recently discharged from [facility] on 02/09after admission for falls and found to have rib fractures and discharged to swing unit. He was found to have elevated Trop and was transferred to [facility] for the same. CTH and CT cervical [...] the day of the encounter. This includes yujb-th-wvmb and rpc-ykcm-tu-face time I provided on the day of the encounter & excludes time spent performing separately reportable services. Daniel Dupree MD 12:49 PM 02/16/2023 * Lulu Rizzo RN - 02/16/2023 10:19 AM CDT 02/17/23 0650 Interdisciplinary Group Conference Team Members Present Physician;Case/Care management Physician present for group conference Dr. Addis Dupree- [facility] Barriers to Discharge Barriers Not Medically ready Not Medically ready follow up Elevated tropronine, down trending. Cardiology following, recs pending. Possible discharge tomorrow. Lulu Rizzo RN CM 5 Cardiac Credit Balance Specialist ext. [phone] * Lucille Alexandra PT - 02/16/2023 9:11 AM CDT PT Initial Evaluation Discharge Recommendation: home with assistance No skilled P/T Activity Recommendation for high raw sugar boiler: Up with modified independence using wh/walker 02/16/23 [...] his daughter is an OT in the [employer] so sheis off for the summer [...] Name: Obie Sims Primary Language of learner: Macanese Patient was educated on transfers balance bed [...] ; No skilled OT Activity Recommendation for high raw sugar boiler: modified independence using 2ww ; defer activity [...] his daughter is an OT in the [employer] so sheis off for the summer and [...] Name: Obie Sims Primary Language of learner: Macanese Patient was educated on precautions exercises transfers [...] Spoke to daughter, Bonnie. Patient lives in [place] with daughter. Was dc'd on Wednesday from [facility]. [facility] was setup to see, ref was faxed. daughter has been assistingwith adl's. Has cane, walker at home. Home [facility] at [facility] and home per [facility]. On disability. Has not been driving last month.PCP is Dr Nkechi Infante. Daughter will transport at ut 02/16/23 0864 Referral Data Source of Information Other Family Members (daughter Bonnie) Patient Information Primary Caregiver Family Current living Situation Children (lives in [place] with daughter) Type of Residence Private residence Support System Immediate family Are you employed? Disabled Recent Hospitalization Recent Hospitalization within 30 days Yes Legal Information Guardianship Documentation Not applicable Baseline ADL's Functional Status Moderate assistance (has not been driving in last month, daughter has been assisting with adl's.) Active DME Oxygen;Cane;Walker Behavior Oriented;Cooperative Communication Talks Current Services Being Provided Home Health shelter;Physical therapy;Occupational therapy Psychosocial Need Indicator Mental health concerns No Diagnosis/prognosis resulting in poor adjustment or coping with illness No Diagnosis/prognosis with anticipated outcome of major lifestyle changes, including 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 Reason for Admission: NSTEMI (non-ST elevated myocardial infarction) ([facility]) HPI: Obie Sims is a 67 y/o M w/ hx of Type 2 DM, CAD, COPD, LBBB, s/p mechanical valve in 2021 and bioprosthetic AVR in 2013, A-fib on Warfarin, Chronic HFrEF (LVEF 37%), Severe Pulmonary HTN, HLD, hx of CVA, and CKD, who presented to ED w/ falls, malaise, and hyperglycemia. Pt recently discharged from [facility] on 02/09 after admission for falls and [...] Due to troponin elevation, pt transferred to [facility] for further eval. Pt reports he fell [...] (CMS/HCC) CHF (congestive heart failure) (CMS/HCC) Claudication ([facility]/HCC) COPD (chronic obstructive pulmonary disease) ([facility]/HCC) Coronary artery disease Diabetes mellitus, type II (CMS/HCC) Edema 04/19/2018 2+ pitting History of blood transfusion Hyperlipidemia Hypertension LV dysfunction Osteoarthritis PAD (peripheral artery disease) (CMS/HCC) Pneumonia Restless leg syndrome S/P aortic valve replacement with bioprosthetic valve 2013 1999, 2013 SOB (shortness of breath) Stroke ([facility]/HCC) Varicose veins of bilateral lower extremities [...] (Incomplete) performed by Kilo Navarro MD at [facility] OR COLONOSCOPY N/A 01/27/2022 COLONOSCOPY WITH COLD SNARE POLYPECTOMY performed by Kilo Navarro MD at [facility] OR HIP ARTHROPLASTY Left KNEE ARTHROPLASTY [...] Principal Problem: NSTEMI (non-ST elevated myocardial infarction) ([facility] Blood pressure [...] Procedure Component Value Units Date/Time CULTURE URINE [[id number]] Collected: 02/06/23 8807 Order Status: Completed Lab Status: Final result [...] MONTANA MD 02/16/2023 Thank you for choosing [facility] hospitalist service. Please call us if any questions or concerns. documented in this encounter Consult Notes * Brain Jdud, DANNY - 02/16/2023 1:07 PM CDT Images from the original note were not included. Cardiology Consult Note Patient Name: Obie Sims : 1955 PCP: MEGAN INFANTE MD Primary Handcrew Foreman: Dr. Pandey Reason for Consultation: Elevated troponin [...] COPD, CKD,history of CVA, pulmonary hypertension, presented [facility] after sustaining mechanical fall. Patient had [...] orthopnea. He denies worsening exertional dyspnea. At [facility] as part of his initial diagnostic work-up he was found to have mildly elevatedtroponin. He was transferred to [facility] for further evaluation. Recent Labs Lab [...] (Incomplete) performed by Kilo Navarro MD at [facility] OR COLONOSCOPY N/A 01/27/2022 COLONOSCOPY WITH COLD SNARE POLYPECTOMY performed by Kilo Navarro MD at [facility] OR HIP ARTHROPLASTY Left KNEE ARTHROPLASTY [...] Imaging: ECG 12 lead Result Date: 02/16/2023 [facility] [address] [place] [address] Test Date: 2023-02-16 Pat Name: OBIE SIMS Department: 1 Room: 506 Gender: Male Under Seal Operator: MS : 1955 Requested By: SEGUNDO MONTANA Order Number: [id number] Reading MD: Measurements Intervals [place] Rate: 83 P: -7 SC: 263 QRS: -39 QRSD: 151 T: 130 QT: 425 QTc: 501 Interpretive Statements SINUS RHYTHM WITH FIRST DEGREE AV BLOCK MARKED LEFT AXIS DEVIATION LEFT BUNDLE BRANCH BLOCK ECG 12 lead Result Date: 02/07/2023 [facility] [address] [place] [address] Test Date: 2023-02-06 Pat Name: OBIE SIMS Department: 1 Room: 854BB Gender: Male Under Seal Operator: Sc : 1955 Requested By: ALYSSA BUCIO Order Number: [id number] Reading MD: Brit Gonzáles Measurements IntervalsAxis Rate: 87 P: -80 SC: 262 QRS: -37 QRSD: 150 T: 136 QT: 406 QTc: 489 Interpretive Statements SINUS RHYTHM WITH FIRST DEGREE AV BLOCK LEFT AXIS DEVIATION LEFT BUNDLE BRANCH BLOCK ECG 12 lead Result Date: 02/06/2023 [facility] Test Date: 2023-02-06 Pat Name: OBIE SIMS Department: 70 Room: EXAM N Gender: Male Under Seal Operator: : 1955 Requested By: AMAURI HAMMOND Order Number: [id number] MD: Brit Gonzáles Measurements Intervals [place] Rate: 89 P: SC: 0 QRS: -34 QRSD: 137 T: 138 QT: 384 QTc: 469 Interpretive Statements UNCERTAIN REGULAR RHYTHM LEFT AXIS DEVIATION [QRS AXIS < -30] INTRAVENTRICULAR CONDUCTION DELAY [130+ ms QRS DURATION] POSSIBLE ANTERIOR MYOCARDIAL INFARCTION , PROBABLY OLD [30 ms Q WAVE IN V3/V4, OR R < 0.2 mV IN V4] ECG 12 lead Result Date: 01/27/[address] [place] [address] Test Date: 2023-01-26 Pat Name: DANIELLA Department: 3 Room: EXAM 707 Gender: Male Under Seal Operator: : 1955 Requested By: URI BLAIR Order Number: [id number] Reading MD: Sharon Willis Measurements Intervals [place] Rate: 99 P: -10 SC: 232 QRS: -18 QRSD: 137 T: 123 [...] changes of median sternotomy and valvular prosthesis. bus monitor leads overlie the chest and abdomen. Stable [...] encounter of 02/16/23 ECG 12 lead Narrative [address] [address] Test Date: 2023-02-16 Pat Name: OBIE SIMS Department: 1 Room: [facility] Gender: Male Under Seal Operator: MS : 1955 Requested By: SEGUNDO MONTANA Order Number: [id number] Sage MD: Measurements Intervals [place] Rate: 83 P: -7 SC: 263 QRS: -39 QRSD: 151 T: 130 [...] st Contact Info) Description 09/25/2024 2:00 PM TIG WELDER Appointment [facility] [address] [place] [address] Zayra Powell, SPACE OFFICER [address] [place] [address] 10/16/2024 3:30 PM TIG WELDER Office Visit [facility] [place] [id number] Brit Gonzáles MD [address] [place] [address] documented as of this encounter Goals Goal [...] 70 - 109 02/18/2023 11:36 AM CDT [facility] 02/18/2023 11:1 3 AM CDT Daniel Dupree MD POCT ORDERABLES - DEVICE Final Result [facility] [address] [place] [address], [id number] * (ABNORMAL) POCT glucose (02/18/2023 7:00 AM CDT) GLUCOSE POC 185(H) 70 - 109 02/18/2023 7:01 AM CDT [facility] 02/18/2023 7:00 AM CDT us Daniel Dupree MD POCT ORDERABLES - DEVICE Final Result Performing Organization Address [facility] [facility] Co de Phone Number [facility] [address] [place] [address], [id number] * (ABNORMAL) PROTIME/INR, VENOUS - Daily (02/18/2023 6:20 AM CDT) PROTIME 15.0(H) 9.4 - 12.5 SEC 02/18/2023 7:00 AM CDT [facility] INR 1.3(H) 0.8 - 1.1 02/18/2023 7:00 AM CDT [facility] 02/18/2023 6:20 AM CDT us Daniel Dupree MD LABORATORY Final Result Performing Organization Address [facility] de Phone Number [facility] [address] [place] [address], [phone] * (ABNORMAL) CBC W/DIFF AUTOMATED (02/18/2023 6:20 AM CDT) WBC 9.71 4.00 - 10.80 x10'3/uL 02/18/2023 6:37 AM CDT [facility] RBC 4.13(L) 4.50 - 6.10 x10'6/uL 02/18/2023 6:37 AM CDT [facility] HGB 9.6(L) 13.0 - 18.0 G/DL 02/18/2023 6:37 AM CDT [facility] HCT 33.1(L) 37.0 - 52.0 % 02/18/2023 6:37 AM CDT [facility] MCV 80.1 78.0 - 100.0 FL 02/18/2023 6:37 AM CDT [facility] MCH 23.2(L) 27.0 - 31.0 PG 02/18/2023 6:37 AM CDT [facility] MCHC 29.0(L) 33.0 - 36.0 G/DL 02/18/2023 6:37 AM CDT [facility] RDW 20.8(H) 11.5 - 14.5 % 02/18/2023 6:37 AM CDT [facility] PLT 219 150 - 350 x10'3/uL 02/18/2023 6:37 AM CDT [facility] MPV 10.5(H) 7.4 - 10.4 FL 02/18/2023 6:37 AM CDT [facility] ABS. NEUTROPHILS 6.52 1.60 - 8.30 x10'3/uL 02/18/2023 6:37 AM CDT [facility] ABS. LYMPHOCYTES 1.60 0.80 - 4.70 x10'3/uL 02/18/2023 6:37 AM CDT [facility] ABS. MONOCYTES 1.02 0.00 - 1.50 x10'3/uL 02/18/2023 6:37 AM CDT [facility] ABS. EOSINOPHILS 0.46(H) 0.00 - 0.40 x10'3/uL 02/18/2023 6:37 AM CDT [facility] ABS. BASOPHILS 0.06 0.00 - 0.20 x10'3/uL 02/18/2023 6:37 AM CDT [facility] ABS. IMMATURE GRANULOCYTES 0.05(H) 0.00 - 0.03 x10'3/uL 02/18/2023 6:37 AM T [facility] ABS. NUCLEATED RBC'S 0.00 0.0 x10'3/uL 02/18/2023 6:37 AM T [facility] 02/18/2023 6:20 AM CDT Daniel Dupree MD LABORATORY Final Result [facility] [address] [place] [address], [id number] * (ABNORMAL) BASIC METABOLIC PANEL (02/18/2023 6:20 AM CDT) SODIUM S/P/B 131(L) 136 - 145 MMOL/L 02/18/2023 7:00 AM CDT [facility] POTASSIUM S/P/B 3.9 3.5 - 5.1 MMOL/L 02/18/2023 7:00 AM CDT [facility] CHLORIDE S/P/B 96(L) 98 - 107 MMOL/L 02/18/2023 7:00 AM CDT [facility] CO2 28.1 21.0 - 32.0 MMOL/L 02/18/2023 7:00 AM CDT [facility] GLUCOSE 173(H) 74 - 106 MG/DL 02/18/2023 7:00 AM CDT [facility] BUN 54(H) 7 - 18 MG/DL 02/18/2023 7:00 AM CDT [facility] CREATININE S/P/B 1.74(H) 0.70 - 1.30 MG/DL 02/18/2023 7:00 AM CDT [facility] CALCIUM S/P/B 10.0 8.5 - 10.1 MG/DL 02/18/2023 7:00 AM CDT [facility] ANION GAP 6.9 5.0 - 15.0 MMOL/L 02/18/2023 7:00 AM CDT [facility] OSMOLALITY (CALC) 291 MOSM/KG 023 7:00 AM CDT [facility] Comment:REFERENCE RANGE NOT ESTABLISHED GFR ESTIMATE 42(L) >90 ML/MIN/1. 73 M2 02/18/2023 7:00 AM CDT [facility] GFR NOTES GFR REFERENCE S: 02/18/2023 7:00 AM CDT [facility] Comment: THE ESTIMATED GFR IS [...] us Daniel Dupree MD LABORATORY Final Result [facility] [address] [place] [id number], [phone] * (ABNORMAL) POCT glucose (02/17/2023 9:37 PM CDT) GLUCOSE POC 257(H) 70 - 109 02/17/2023 9:39 PM CDT [facility] 02/17/2023 9:37 PM CDT us Daniel Dupree MD POCT ORDERABLES - DEVICE Final Result Performing Organization Address City/[facility]/ZIP Co de Phone Number [facility] [address] [place] [address], [phone] * (ABNORMAL) POCT glucose (02/17/2023 4:14 PM CDT) GLUCOSE POC 278(H) 70 - 109 02/17/2023 4:17 PM CDT [facility] 02/17/2023 4:14 PM CDT us Daniel Dupree MD POCT ORDERABLES - DEVICE Final Result Performing Organization Address [facility] Co de Phone Number [facility] [address] [place] [address], [place] [phone] * (ABNORMAL) PROTIME/INR, VENOUS - Today (02/17/2023 11:47 AM CDT) PROTIME 17.6(H) 9.4 - 12.5 SEC 02/17/2023 12:47 PM CDT [facility] INR 1.6(H) 0.8 - 1.1 02/17/2023 12:47 PM CDT [facility] 02/17/2023 11:4 7 AM CDT us Daniel Dupree MD LABORATORY Final Result Performing Organization Address [facility] Co de Phone Number [facility] [address] [place] [address], [place] [phone] * (ABNORMAL) HEPATIC FUNCTION PANEL (02/17/2023 11:46 AM CDT) BILIRUBIN TOTAL S/P/B 1.0 0.2 - 1.0 MG/DL 02/17/2023 12:54 PM CDT [facility] BILIRUBIN DIRECT S/P/B 0.3(H) 0.0 - 0.2 MG/DL 02/17/2023 12:54 PM CDT [facility] ALKALINE PHOSPHATASE S/P/B 177(H) 45 - 115 U/L 02/17/2023 12:54 PM CDT [facility] AST 28 15 - 37 U/L 02/17/2023 12:54 PM CDT [facility] ALT 27 16 - 61 U/L 02/17/2023 12:54 PM CDT [facility] TOTAL PROTEIN S/P/B 8.2 6.4 - 8.2 G/DL 02/17/2023 12:54 PM CDT [facility] ALBUMIN S/P/B 3.1(L) 3.4 - 5.0 G/DL 02/17/2023 12:54 PM CDT [facility] 02/17/2023 11:4 6 AM CDT us Daniel Dupree MD LABORATORY Final Result Performing Organization Address [facility] Co de Phone Number [facility] [address] [address], [phone] * (ABNORMAL) POCT glucose (02/17/2023 11:33 AM CDT) GLUCOSE POC 227(H) 70 - 109 02/17/2023 11:39 AM CDT [facility] 02/17/2023 11:3 3 AM CDT us Daniel Dupree MD POCT ORDERABLES - DEVICE Final Result Performing Organization Address [facility] Co de Phone Number [facility] [address] [place] [address], [place] [phone] * (ABNORMAL) POCT glucose (02/17/2023 8:36 AM CDT) GLUCOSE POC 276(H) 70 - 109 02/17/2023 8:47 AM CDT [facility] Comment:RN Notified 02/17/2023 8:36 AM CDT us Daniel Dupree MD POCT ORDERABLES - DEVICE Final Result Performing Organization Address [facility] Co de Phone Number [facility] [address] [place] [address], [phone] * (ABNORMAL) HEMOGLOBIN, GLYCOSYLATED (02/17/2023 5:06 AM CDT) HGB A1C 8.0(H) <5.7 % 02/17/2023 8:34 AM CDT [facility] ESTIMATED AVG GLUCOSE 183(H) 74 - 114 MG/DL 02/17/2023 8:34 AM CDT [facility] 02/17/2023 5:06 AM CDT us Daniel Dupree MD LABORATORY Final Result [facility] [address] [place] [address], [phone] * (ABNORMAL) MAGNESIUM (02/17/2023 5:06 AM CDT) MAGNESIUM 2.7(H) 1.6 - 2.6 MG/DL 02/17/2023 5:54 AM CDT [facility] 02/17/2023 5:06 AM CDT us Daniel Dupree MD LABORATORY Final Result [facility] [address] [place] [address], [phone] * (ABNORMAL) BASIC METABOLIC PANEL (02/17/2023 5:06 AM CDT) SODIUM S/P/B 131(L) 136 - 145 MMOL/L 02/17/2023 5:54 AM CDT [facility] POTASSIUM S/P/B 3.9 3.5 - 5.1 MMOL/L 02/17/2023 5:54 AM CDT [facility] CHLORIDE S/P/B 97(L) 98 - 107 MMOL/L 02/17/2023 5:54 AM T [facility] CO2 26.9 21.0 - 32.0 MMOL/L 02/17/2023 5:54 AM T [facility] GLUCOSE 115(H) 74 - 106 MG/DL 02/17/2023 5:54 AM T [facility] BUN 64(H) 7 - 18 MG/DL 02/17/2023 5:54 AM T [facility] CREATININE S/P/B 1.68(H) 0.70 - 1.30 MG/DL 02/17/2023 5:54 AM T [facility] CALCIUM S/P/B 9.5 8.5 - 10.1 MG/DL 02/17/2023 5:54 AM [facility] ANION GAP 7.1 5.0 - 15.0 MMOL/L 02/17/2023 5:54 AM T [facility] OSMOLALITY (CALC) 291 MOSM/KG 023 5:54 AM [facility] Comment:REFERENCE RANGE NOT ESTABLISHED GFR ESTIMATE 44(L) >90 ML/MIN/1. 73 M2 02/17/2023 5:54 AM [facility] GFR NOTES GFR REFERENCE S: 02/17/2023 5:54 AM [facility] Comment: THE ESTIMATED GFR IS CALCULATED [...] CDT Daniel Dupree MD LABORATORY Final Result [facility] [address] [place] [address], [phone] * (ABNORMAL) CBC W/DIFF AUTOMATED (02/17/2023 5:06 AM CDT) WBC 10.40 4.00 - 10.80 x10'3/uL 02/17/2023 5:25 AM CDT [facility] RBC 3.84(L) 4.50 - 6.10 x10'6/uL 02/17/2023 5:25 AM CDT [facility] HGB 9.1(L) 13.0 - 18.0 G/DL 02/17/2023 5:25 AM CDT [facility] HCT 31.0(L) 37.0 - 52.0 % 02/17/2023 5:25 AM CDT [facility] MCV 80.7 78.0 - 100.0 FL 02/17/2023 5:25 AM CDT [facility] MCH 23.7(L) 27.0 - 31.0 PG 02/17/2023 5:25 AM CDT [facility] MCHC 29.4(L) 33.0 - 36.0 G/DL 02/17/2023 5:25 AM CDT [facility] RDW 20.5(H) 11.5 - 14.5 % 02/17/2023 5:25 AM CDT [facility] PLT 204 150 - 350 x10'3/uL 02/17/2023 5:25 AM CDT [facility] MPV 10.6(H) 7.4 - 10.4 FL 02/17/2023 5:25 AM CDT [facility] ABS. NEUTROPHILS 7.01 1.60 - 8.30 x10'3/uL 02/17/2023 5:25 AM CDT [facility] ABS. LYMPHOCYTES 1.61 0.80 - 4.70 x10'3/uL 02/17/2023 5:25 AM CDT [facility] ABS. MONOCYTES 1.15 0.00 - 1.50 x10'3/uL 02/17/2023 5:25 AM CDT [facility] ABS. EOSINOPHILS 0.53(H) 0.00 - 0.40 x10'3/uL 02/17/2023 5:25 AM CDT [facility] ABS. BASOPHILS 0.06 0.00 - 0.20 x10'3/uL 02/17/2023 5:25 AM CDT [facility] ABS. IMMATURE GRANULOCYTES 0.04(H) 0.00 - 0.03 x10'3/uL 02/17/2023 5:25 AM CDT [facility] ABS. NUCLEATED RBC'S 0.00 0.0 x10'3/uL 02/17/2023 5:25 AM CDT [facility] 02/17/2023 5:06 AM CDT us Daniel Dupree MD LABORATORY Final Result Performing Organization Address City/[facility]/ZIP Co de Phone Number [facility] [address] [place] [phone], [phone] * (ABNORMAL) POCT glucose (02/16/2023 8:43 PM CDT) GLUCOSE POC 286(H) 70 - 109 02/16/2023 8:44 PM CDT [facility] 02/16/2023 8:43 PM CDT us Daniel Dupree MD POCT ORDERABLES - DEVICE Final Result Performing Organization Address City/[facility]/ZIP Co de Phone Number [facility] [address] [place] [address], [phone] * (ABNORMAL) POCT glucose (02/16/2023 4:39 PM CDT) GLUCOSE POC 237(H) 70 - 109 02/16/2023 4:46 PM CDT [facility] 02/16/2023 4:39 PM CDT us Daniel Dupree MD POCT ORDERABLES - DEVICE Final Result Performing Organization Address City/[facility]/ZIP Co de Phone Number [facility] [address] [place] [address], [phone] * (ABNORMAL) TROPONIN, QUANT (02/16/2023 4:25 PM CDT) TROPONIN I HIGH SENSITIVITY 87(H) 0 - 78 ng/L 02/16/2023 4:58 PM CDT [facility] 02/16/2023 4:25 PM CDT us Segundo Montana MD LABORATORY Final Result Performing Organization Address [facility]/ZIP Co de Phone Number [facility] [address] [place] [address], [phone] * (ABNORMAL) POCT glucose (02/16/2023 11:19 AM CDT) GLUCOSE POC 249(H) 70 - 109 02/16/2023 11:24 AM CDT [facility] 02/16/2023 11:1 9 AM CDT us Daniel Dupree MD POCT ORDERABLES - DEVICE Final Result Performing Organization Address [facility]/ZIP Co de Phone Number [facility] [address] [place] [address], [id number] * (ABNORMAL) TROPONIN, QUANT (02/16/2023 11:12 AM CDT) TROPONIN I HIGH SENSITIVITY 97(H) 0 - 78 ng/L 02/16/2023 11:51 AM CDT [facility] 02/16/2023 11:1 2 AM CDT us Segundo Montana MD LABORATORY Final Result Performing Organization Address City/[facility]/ZIP Co de Phone Number [facility] [address] [place] [address], [place] [phone] * (ABNORMAL) POCT glucose (02/16/2023 8:01 AM CDT) GLUCOSE POC 306(H) 70 - 109 02/16/2023 8:02 AM CDT [facility] 02/16/2023 8:01 AM CDT us Daniel Dupree MD POCT ORDERABLES - DEVICE Final Result Performing Organization Address [facility] Co de Phone Number [facility] [address] [place] [address], [place] [phone] * (ABNORMAL) POCT glucose (02/16/2023 6:40 AM CDT) GLUCOSE POC 222(H) 70 - 109 02/16/2023 6:42 AM CDT [facility] 02/16/2023 6:40 AM CDT us Segundo Montana MD POCT ORDERABLES - DEVICE Final Result Performing Organization Address [facility] Co de Phone Number [facility] [address] [place] [address], [place] [phone] * XR CHEST PORTABLE (02/16/2023 5:45 AM [...] changes of median sternotomy and valvular prosthesis. ??bus monitor leads overlie the chest and abdomen. ??Stable [...] postop changes of median sternotomy and valvularprosthesis. bus monitor leads overlie the chest and abdomen. Stableprominence [...] - 986 PG/ML 02/16/2023 6:45 AM CDT [facility] 02/16/2023 5:32 AM CDT us Segundo Montana MD LABORATORY Final Result Performing Organization Address City/[facility]/ZIP Co de Phone Number [facility] [address] [place] [address], [phone] * FERRITIN (02/16/2023 5:32 AM CDT) FERRITIN 26.2 26.0 - 388.0 NG/ML 02/16/2023 6:20 AM CDT [facility] 02/16/2023 5:32 AM CDT us Segundo Montana MD LABORATORY Final Result Performing Organization Address City/[facility]/ZIP Co de Phone Number [facility] [address] [place] [address], [phone] * (ABNORMAL) IRON SATURATION PANEL (FE,IBC,%SAT) (02/16/2023 5:32 AM CDT) IRON 48(L) 65 - 175 MCG/DL 02/16/2023 6:20 AM CDT [facility] IRON BINDING CAPACITY 389 250 - 450 MCG/DL 02/16/2023 6:20 AM CDT [facility] IRON SATURATION 12 % 6:20 AM CDT [facility] Comment:REFERENCE RANGE NOT ESTABLISHED 02/16/2023 5:32 AM CDT Segundo Montana MD LABORATORY Final Result Performing Organization Address [facility] de Phone Number [facility] [address] [place] [address], [phone] * CULTURE, BACTERIA BLOOD X2 (02/16/2023 5:03 AM CDT) SPEC DESCRIPTION BLOOD 02/17/20 5:49 AM CDT [facility] SPECIAL REQUESTS BLOOD-AERO BIC BOTTLE ONLY 02/16/2023 5:49 AM CDT [facility] CULTURE RESULT NO GROWTH 5 DAYS 02/21/2023 7:30 AM CDT [facility] BLOOD SPECIMEN OBTAINED FOR BLOOD CULTURE / Unknown 02/16/2023 5:03 AM CDT 02/16/2023 5:49 AM CDT Segundo Montana MD MICROBIOLOGY - GENERAL ORDERAB LES Final Result Performing Organization Address [facility] Co de Phone Number [facility] [address] [place] [address], [place] [phone] * PROCALCITONIN (PCT) (02/16/2023 5:02 AM CDT) Procalcitonin 0.44 <0.50 NG/ML 02/16/2023 10:36 AM CDT [facility] 02/16/2023 5:02 AM CDT us Segundo Montana MD LABORATORY Final Result Performing Organization Address [facility] Co de Phone Number [facility] [address] [place] [address], [id number] * CULTURE, BACTERIA BLOOD X2 (02/16/2023 5:01 AM CDT) SPEC DESCRIPTION BLOOD 02/16/2023 4:54 AM CDT [facility] SPECIAL REQUESTS NO SPECIAL REQUEST 02/16/2023 4:54 AM CDT [facility] CULTURE RESULT NO GROWTH 5 DAYS 02/21/2023 7:30 AM CDT [facility] BLOOD SPECIMEN OBTAINED FOR BLOOD CULTURE / Unknown 02/16/2023 5:01 AM CDT 02/16/2023 5:02 AM CDT Segundo Montana MD MICROBIOLOGY - GENERAL ORDERAB LES Final Result Performing Organization Address [facility] Co de Phone Number [facility] [address] [place] [address], [place] [phone] * (ABNORMAL) PROTIME/INR, VENOUS (PROTHROMBIN TIME) (02/16/2023 4:54 AM CDT) PROTIME 21.0(H) 9.4 - 12.5 SEC 02/16/2023 5:29 AM CDT [facility] INR 1.8(H) 0.8 - 1.1 02/16/2023 5:29 AM CDT [facility] 02/16/2023 4:54 AM CDT us Segundo Montana MD LABORATORY Final Result Performing Organization Address [facility] Co de Phone Number [facility] [address] [place] [address], [phone] * (ABNORMAL) THYROID STIM HORMONE, TSH (02/16/2023 4:54 AM CDT) Pathologist [facility] TSH 5.480(H) 0.358 - 3.740 uIU/ML 02/16/2023 5:52 AM CDT [facility] Comment: ASSAY PERFORMED BY CHEMILUMINESCENCE METHODOLOGY USING [employer]. PATIENT RESULTS DETERMINED BY ASSAYS USING DIFFERENT MANUFACTURERS FOR METHODS MAY NOT BE COMPARABLE. 02/16/2023 4:54 AM CDT us Segundo Montana MD LABORATORY Final Result Performing Organization Address [facility] de Phone Number [facility] [address] [place] [address], [phone] * (ABNORMAL) TROPONIN, QUANT (02/16/2023 4:54 AM CDT) [facility] TROPONIN I HIGH SENSITIVITY 106(H) 0 - 78 ng/L 02/16/2023 5:52 AM CDT [facility] 02/16/2023 4:54 AM CDT us Segundo Montana MD LABORATORY Final Result Performing Organization Address [facility] de Phone Number [facility] [address] [place] [address], [place] [phone] * (ABNORMAL) HEMOGLOBIN, GLYCATED (02/16/2023 4:54 AM CDT) [facility] HGB A1C 8.2(H) <5.7 % 02/16/2023 5:37 AM CDT [facility] ESTIMATED AVG GLUCOSE 189(H) 74 - 114 MG/DL 02/16/2023 5:37 AM CDT [facility] 02/16/2023 4:54 AM CDT us Segundo Montana MD LABORATORY Final Result Performing Organization Address City/[facility] Co de Phone Number [facility] [address] [place] [address], [place] [phone] * (ABNORMAL) MAGNESIUM (02/16/2023 4:54 AM CDT) [facility] MAGNESIUM 3.2(H) 1.6 - 2.6 MG/DL 02/16/2023 5:52 AM CDT [facility] 02/16/2023 4:54 AM CDT Segundo Montana MD LABORATORY Final Result [facility] [address] [place] [address], [phone] * (ABNORMAL) BASIC METABOLIC PANEL (02/16/2023 4:54 AM CDT) [facility] SODIUM S/P/B 134(L) 136 - 145 MMOL/L 02/16/2023 5:52 AM CDT [facility] POTASSIUM S/P/B 3.8 3.5 - 5.1 MMOL/L 02/16/2023 5:52 AM CDT [facility] CHLORIDE S/P/B 99 98 - 107 MMOL/L 02/16/2023 5:52 AM CDT [facility] CO2 27.2 21.0 - 32.0 MMOL/L 02/16/2023 5:52 AM CDT [facility] GLUCOSE 216(H) 74 - 106 MG/DL 02/16/2023 5:52 AM CDT [facility] BUN 76(H) 7 - 18 MG/DL 02/16/2023 5:52 AM CDT [facility] CREATININE S/P/B 1.90(H) 0.70 - 1.30 MG/DL 02/16/2023 5:52 AM CDT [facility] CALCIUM S/P/B 9.2 8.5 - 10.1 MG/DL 02/16/2023 5:52 AM CDT [facility] ANION GAP 7.8 5.0 - 15.0 MMOL/L 02/16/2023 5:52 AM CDT [facility] OSMOLALITY (CALC) 307 MOSM/KG 023 5:52 AM CDT [facility] Comment:REFERENCE RANGE NOT ESTABLISHED GFR ESTIMATE 38(L) >90 ML/MIN/1. 73 M2 02/16/2023 5:52 AM CDT [facility] GFR NOTES GFR REFERENCE S: 02/16/2023 5:52 AM CDT [facility] Comment: THE ESTIMATED GFR IS [...] CDT Segundo Montana MD LABORATORY Final Result [facility] [address] [place] [id number], [id number] * (ABNORMAL) CBC W/DIFF AUTOMATED (02/16/2023 4:54 AM CDT) WBC 13.19(H) 4.00 - 10.80 x10'3/uL 02/16/2023 5:12 AM CDT [facility] RBC 4.02(L) 4.50 - 6.10 x10'6/uL 02/16/2023 5:12 AM CDT [facility] HGB 9.6(L) 13.0 - 18.0 G/DL 02/16/2023 5:12 AM CDT [facility] HCT 32.2(L) 37.0 - 52.0 % 02/16/2023 5:12 AM CDT [facility] MCV 80.1 78.0 - 100.0 FL 02/16/2023 5:12 AM CDT [facility] MCH 23.9(L) 27.0 - 31.0 PG 02/16/2023 5:12 AM CDT [facility] MCHC 29.8(L) 33.0 - 36.0 G/DL 02/16/2023 5:12 AM CDT [facility] RDW 20.4(H) 11.5 - 14.5 % 02/16/2023 5:12 AM CDT [facility] PLT 193 150 - 350 x10'3/uL 02/16/2023 5:12 AM CDT [facility] MPV 10.6(H) 7.4 - 10.4 FL 02/16/2023 5:12 AM CDT [facility] ABS. NEUTROPHILS 9.51(H) 1.60 - 8.30 x10'3/uL 02/16/2023 5:12 AM CDT [facility] ABS. LYMPHOCYTES 1.52 0.80 - 4.70 x10'3/uL 02/16/2023 5:12 AM CDT [facility] ABS. MONOCYTES 1.61(H) 0.00 - 1.50 x10'3/uL 02/16/2023 5:12 AM CDT [facility] ABS. EOSINOPHILS 0.46(H) 0.00 - 0.40 x10'3/uL 02/16/2023 5:12 AM CDT [facility] ABS. BASOPHILS 0.03 0.00 - 0.20 x10'3/uL 02/16/2023 5:12 AM CDT [facility] ABS. IMMATURE GRANULOCYTES 0.06(H) 0.00 - 0.03 x10'3/uL 02/16/2023 5:12 AM CDT [facility] ABS. NUCLEATED RBC'S 0.00 0.0 x10'3/uL 02/16/2023 5:12 AM CDT [facility] 02/16/2023 4:54 AM CDT Segundo Montana MD LABORATORY Final Result [facility] [address] [place] [address], [id number] * ECG 12 lead (02/16/2023 4:44 AM CDT) 02/16/2023 4:44 AM CDT Narrative [facility] - 02/16/2023 9:46 PM CDT ? [facility] ?[address], [place] ??[address] ? Test Date: ?2023-02-16 Pat Name: ? OBIE SIMS ?Department: ?? 1 ? Room: ? 506AA Gender: ? Male ? Under Seal Operator: ?? MS : ?[id number] ? Requested By: SEGUNDO MONTANA Order Number: [id number] ? Reading MD: ?? Karolina Parekh ? Measurements Intervals ?[place] ? Rate: ? 83 ? P: ?-7 SC: ? 263 ?QRS: ?-39 QRSD: ? 151 ?T: ?130 QT: ? 425 ? QTc: ?501 ? Interpretive Statements SINUS RHYTHM WITH FIRST DEGREE AV BLOCK MARKED LEFT AXIS DEVIATION LEFT BUNDLE BRANCH BLOCK Procedure Note Karolina Parekh MD - 02/16/2023 [place] [address] [place] [address] Test Date: 2023-02-16 Pat Name: OBIE SIMS Department: 1 Room: [facility] Gender: Male Under Seal Operator: : [id number] Requested By: SEGUNDO MONTANA Order Number: [id number] Sage MD: Martin Measurements Intervals [place] Rate: 83 P: -7 SC: 263 QRS: -39 QRSD: 151 T: 130 QT: 425 QTc: 501 Interpretive Statements SINUS RHYTHM WITH FIRST DEGREE AV BLOCK MARKED LEFT AXIS DEVIATION LEFT BUNDLE BRANCH BLOCK us Segundo Montana MD ECG ORDERABLES Final Result Performing Organization Address City/[facility]/ZIP Co de Phone Number [facility] * (ABNORMAL) POCT glucose (02/16/2023 3:20 AM CDT) GLUCOSE POC 221(H) 70 - 109 02/16/2023 3:21 AM CDT [facility] 02/16/2023 3:20 AM CDT us Segundo Montana MD POCT ORDERABLES - DEVICE Final Result Performing Organization Address City/[facility] Co de Phone Number [facility] [address] [place] [place] [phone], [id number] documented in this encounter Visit Diagnoses Diagnosis NSTEMI (non-ST elevated myocardial infarction) ([facility])- Primary Acute myocardial infarction, subendocardial infarction, episode of care unspecified documented in this encounter Admitting Diagnoses Diagnosis NSTEMI (non-ST elevated myocardial infarction) ([facility]) Acute myocardial infarction, subendocardial infarction, episode [...] Otero RN) 0810 (Given - Provider: Florencio Fernádnez, YUNI) spironolactone (ALDACTONE) tablet 25 mg 25 [...] as of this encounter Care Teams Mold Capper Helper Relationship Specialty [place] [address] [place] [address] [place] [phone] PCP - General FAMILY PRACTICE 04/06/16 Amauri Pandey MD [facility] [employer] [facility] CARDIOVASCULAR DISEASE 04/06/16 12/28/23 Sharmila Davis APRN, LAB AIDE-C [address] [facility] [address] [place] [address] NURSE PRACTITIONER 01/04/17 04/03/24 Linda Block MD [address] [facility] [address] [place] [id number] [facility] [employer] CLINICAL CARDIAC ELECTROPHYSIOLOGY 02/08/17 04/12/23 Zaki Ortiz MD [address] [facility] [address] [place] [id number] Consulting Physician PULMONARY DISEASE 07/12/19 Concetta Acevedo MD [address] [place] [id number] Surgeon NEUROLOGICAL SURGERY 12/16/22 Jeff Grace MD [address] [place] [address] Consulting Physician INTERNAL MEDICINE 02/11/23 documented as of this encounter
--- OUTSIDE RECORDS SUMMARY | 2024-09-03 20:38 | XMS_ITS | Encounter Summary ---
Author Organization [facility] Address [facility] [place] [address] [place] [address] Care Team Providers Care House Painter Name Role Phone Piyush Pandey MD Unavailable Unavailabl Megan Leos MD Primary Care Provider [phone] Sharmila Davis APRN, NP-C Unavailable [phone] Zaki Ortiz MD Unavailable [phone] Concetta Acevedo MD Unavailable [phone] Jeff Grace MD Unavailable Reason for Referral * Imaging (Emergency) - Closed Specialty Diagnoses / Procedures Referred By Yung t Referred To Contact RADIOLOGY Procedures CT ABD+PEL WO CON Ana Moran NP [address] [address] Phone: tel: fax: Referral ID Status Reason Start Date Expiration Date Visits Re quested Visits Authorized [id number] Closed 07/14/2023 07/14/2024 1 1 INE SHOP SPECIALIST * Imaging (Urgent) - Closed Specialty Diagnoses / Procedures Referred By Contac t Referred To Contact RADIOLOGY Procedures [facility] Ana Moran NP [address] [place] [address] Phone: tel: fax: Referral ID Status Reason Start Date Expiration Date Visits Re quested Visits Authorized [id number] Closed 07/14/2023 07/14/2024 1 1 INE SHOP SPECIALIST * (Routine) - Canceled Specialty Diagnoses / Procedures Referred By Contac t Referred To Contact Procedures PT eval and treat Ana Moran NP [address] [place] [address] Phone: tel: fax: Referral ID Status Reason Start Date Expiration Date V isits Requested Visits Authorized [id number] Canceled 07/13/2023 07/13/2024 1 1 INE SHOP SPECIALIST Reason for Visit * Reason Comments Chest Pain * Auth/Cert (Routine) Specialty Diagnoses / Procedures Referred By Contac t Referred To Contact Diagnoses Chest pain Anemia CHF exacerbation (CMS/HCC HHS/HCC) Cellulitis of right leg CHF exacerbation (HHS/HCC) (CMS/HCC) Procedures NONE Megan Infante MD [address] [place] [address] Phone: tel: fax: Referral ID Status Reason Start Date Expiration Date Visits Re quested Visits Authorized [id number] 1 1 Encounter Details Date Type Department Care Team (Late st Contact Info) Description 07/12/2023 3:33 PM MACHINE SHOP SPECIALIST - 07/16/2023 10:13 AM MACHINE SHOP SPECIALIST Hospital Encounter [facility] [address] [place] [address] Reema Green MD [address] [place] [address] Megan Infante MD [address] [place] [address] Chest Pain Discharge Disposition: Home or Self Care (Routine Discharge) Social History Tobacco Use Types Packs/Day Years Used Date Smoking Tobacco: Former Smokeless Tobacco: Former Chew Alcohol Use Standard Drinks/Week Comments Yes 0 (1 standard drink = 0.6 oz pur e alcohol) 6 beers per week [facility] [...] How often do you attend congregation or worship serv ices? Patient declined 02/16/2023 Do you [...] move on to questions 3-9 0 12/01/2021 [facility] Occupat ional Health - Occupational Stress [...] Comments Blood Pressure 113/61 07/16/2023 8:51 AM MACHINE SHOP SPECIALIST Pulse 90 07/16/2023 8:51 AM MACHINE SHOP SPECIALIST Temperature 36 ??C (96.8 ??F) 07/16/2023 4:45 AM MACHINE SHOP SPECIALIST Respiratory Rate 20 07/16/2023 4:45 AM MACHINE SHOP SPECIALIST Oxygen Saturation 97% 07/16/2023 4:45 AM MACHINE SHOP SPECIALIST Inhaled Oxygen Concentration - - Weight 91.9 kg (202 lb 9.6 oz) 07/16/2023 4:45 A M MACHINE SHOP SPECIALIST Height 167.6 cm (5' 6 ) 07/12/2023 6:52 PM MACHINE SHOP SPECIALIST Body Mass Index 32.7 07/12/2023 6:52 PM MACHINE SHOP SPECIALIST documented in this encounter Functional Status * [...] puff into the lungs daily. Generic drug: Svdziqcylcy-Gkymyvzks-Sjlnzo * warfarin 1 MG tablet Commonly known [...] Gloria Navarro MD at 07/20/2023 10:13 AM MACHINE SHOP SPECIALIST INE SHOP SPECIALIST INE SHOP SPECIALIST Associated attestation - Gloria Navarro MD - 07/20/2023 10:13 AM MACHINE SHOP SPECIALIST I, GLORIA NAVARRO MD, participated in the [...] * Cellulitis (Skin Infection) Discharge Instructions, Adult (Egyptian) documented in this encounter Medications at [...] (81 mg total) by mouth daily. 04/18/2014 12/12/202 4 clindamycin (CLEOCIN) 300 MG capsule Take [...] 2 (two) times daily. 15 g 07/16/2023 12/09/202 4 warfarin (COUMADIN) 1 MG tablet Take [...] with appropriate AD. Outcome: Adequate for Discharge INE SHOP SPECIALIST * Opal Caro PTA - 07/16/2023 9:42 AM CST Pt progressing towards his therapeutic goals. INE SHOP SPECIALIST * Opal Caro PTA - 07/16/2023 9:41 [...] of Session Safety Call light within reach INE SHOP SPECIALIST * Meredith Munguia RN - 07/15/2023 9:31 [...] Rise slowly from sitting, call for assistance. INE SHOP SPECIALIST * Risa Padilla RN - 07/15/2023 4:20 [...] Reduced Risk of Polypharmacy Outcome: Progressing Note: MD/CLINICAL QUALITY MANAGER reviewed. INE SHOP SPECIALIST * Shayy Duke, ANP- - 07/15/2023 8:10 [...] Mixed hyperlipidemia Diabetes mellitus, type II (HHS/HCC) ([facility]) Coronary artery disease involving [place] coronary artery of [place] heart without angina pectoris COPD (chronic obstructive pulmonary disease) ([facility]/HCC) ([facility]/HCC) Carotid disease, bilateral (CMS/HCC) Arthritis Aortic stenosis Chronic anticoagulation Chronic atrial fibrillation ([facility]/HCC) ([facility]) S/P aortic valve replacement with bioprosthetic valve Varicose veins of bilateral lower extremities with other complications Abnormal ankle brachial index (STELLA) Claudication ([facility]/HCC) Pain in both lower extremities Abnormal finding on lung imaging Abnormal finding on pulmonary function testing Shortness of breath TIA (transient ischemic attack) Obstructive sleep apnea (adult) (pediatric) Pulmonary hypertension ([facility]/HCC) ([facility]) Asymptomatic carotid artery stenosis, bilateral Mild persistent asthma without complication ([facility]) Leg edema Other closed fracture of distal end of right fibula with routine healing, subsequent encounter NSTEMI (non-ST elevated myocardial infarction) ([facility]) ([facility]) Elevated troponin Elevated brain natriuretic peptide (BNP) level Fall CHF (congestive heart failure) ([facility]) ([facility]) Rib fractures CHF exacerbation ([facility]) ([facility]) allopurinol 300 mg Oral Daily [...] Gloria Navarro MD at 07/20/2023 10:12 AM MACHINE SHOP SPECIALIST INE SHOP SPECIALIST INE SHOP SPECIALIST INE SHOP SPECIALIST Associated attestation - Gloria Navarro MD - 07/20/2023 10:12 AM MACHINE SHOP SPECIALIST I, GLORIA NAVARRO MD, participated in the [...] Polypharmacy Outcome: Progressing Note: Scheduled medication given INE SHOP SPECIALIST * Teresa Colon RD - 07/14/2023 3:59 [...] diarrhea, constipation. Food allergies/intolerances: NKFA per EHR Cultural/Quaker food preferences: None reported in EHR Cardiorespiratory: in room air Neuro: Alert/oriented per EHR Edema: +1 (RLE/LLE) edema noted per EHR GI: abdomen WDL with positive bowel sounds per utility accounts director; last BM documented on 07/12/23 Chewing/swallowing problems: [...] 2 mg Oral Once PRN: Colace, morphine, [place] Anthropometrics: Admission weight: 98.2 kg (Date: 07/12/23; [...] Nutrient Needs: Calories: 1869 kcal/day based on Manatee-St Jeor x 1.1 Protein: 98 gm/day based [...] at follow up. TERESA COLON RD, LDN INE SHOP SPECIALIST * Wei Frazier, PT - 07/14/2023 2:33 [...] Asthma, mild persistent (HHS/HCC) 04/06/2021 Atrial fibrillation ([facility]/HCC) ([facility]) s/p PVI/WACA 10/2015 Bilateral leg pain Carotid disease, bilateral ([facility]/HCC) CHF (congestive heart failure) ([facility]/HCC) ([facility]) Claudication ([facility]/HCC) COPD (chronic obstructive pulmonary disease) ([facility]/HCC) ([facility]) Coronary artery disease Diabetes mellitus, type II ([facility]/HCC) ([facility]) Edema 04/19/2018 2+ pitting History of blood transfusion Hyperlipidemia Hypertension LV dysfunction Osteoarthritis PAD (peripheral artery disease) ([facility]) Pneumonia Restless leg syndrome S/P aortic valve replacement with bioprosthetic valve 2013 1999, 2013 SOB (shortness of breath) Stroke ([facility]) ([facility]) Varicose veins of bilateral lower extremities with other complications Weight gain with edema Past Surgical History: Procedure Laterality Date APPENDECTOMY CARDIAC VALVE REPLACEMENT 1999 CARDIAC VALVE REPLACEMENT 2013 CARDIOVERSION EXTERNAL 10/01/2015 CARDIOVERSION EXTERNAL 04/14/2012 COLONOSCOPY N/A 03/18/2021 COLONOSCOPY (Incomplete) performed by Gloria Navarro MD at [facility] OR COLONOSCOPY N/A 01/27/2022 COLONOSCOPY WITH COLD SNARE POLYPECTOMY performed by Gloria Navarro MD at [facility] OR HIP ARTHROPLASTY Left KNEE [...] and all needs met per pt report. INE SHOP SPECIALIST * Opal Caro, QUARRY EXTRACTION WORKER - 07/14/2023 2:17 PM CST 07/14/23 1340 [...] bilateral LE. Reason for admission CHF exacerbation INE SHOP SPECIALIST * Maria M Genao, PharmD, [facility] - 07/14/2023 12:24 PM CSTSummary: Warfarin Warfarin [...] chronic heart failure, unspecified heart failure type ([facility]/HCC) ([facility]) Anxiety Aortic valve stenosis Arthritis Asthma, mild persistent ([facility]/HCC) 04/06/2021 Atrial fibrillation (HHS/HCC) ([facility]) s/p PVI/WACA 10/2015 Bilateral leg pain Carotid disease, bilateral ([facility]/HCC) CHF (congestive heart failure) (HHS/HCC) ([facility]/HCC) Claudication ([facility]/HCC) COPD (chronic obstructive pulmonary disease) ([facility]/HCC) ([facility]) Coronary artery disease Diabetes mellitus, type II ([facility]/HCC) ([facility]/HCC) Edema 04/19/2018 2+ pitting History of blood transfusion Hyperlipidemia Hypertension LV dysfunction Osteoarthritis PAD (peripheral artery disease) ([facility]) Pneumonia Restless leg syndrome S/P aortic valve replacement with bioprosthetic valve 2013 SOB (shortness of breath) Stroke (HHS/HCC) ([facility]) Varicose veins of bilateral [...] per Dr. Naresh GENAO, PharmD, [facility] Phone number: [phone] 07/14/2023 12:24 PM INE SHOP SPECIALIST * Zayra Powell, SIGNAL OPERATOR - 07/14/2023 7:40 AM CSTSummary: Inpatient wound care consult Wound Care Obie Lay is an 1955 male. Chief Complaint: Chest pain HPI: 67 year old male with hx of PAD, aortic valve stenosis, asthma, atrial fibrillation, CHF, claudication, COPD, CAD, T2DM, HTN, CVA and LV dysfunction admitted to [facility] after presenting to the ERfor chest pain [...] heart failure, unspecified heart failure type (HHS/HCC) ([facility]) Anxiety Aortic valve stenosis Arthritis Asthma, mild persistent ([facility]/HCC) 04/06/2021 Atrial fibrillation ([facility]/HCC) ([facility]/HCC) s/p PVI/WACA 10/2015 Bilateral leg pain Carotid disease, bilateral ([facility]/HCC) CHF (congestive heart failure) (HHS/HCC) (CMS/HCC) Claudication ([facility]/HCC) COPD (chronic obstructive pulmonary disease) (HHS/HCC) ([facility]/HCC) Coronary artery disease Diabetes mellitus, type II [...] Navarro MD at [facility] OR COLONOSCOPY N/A 01/27/2022 COLONOSCOPY WITH COLD SNARE POLYPECTOMY performed by Gloria Navarro MD at [facility] OR HIP ARTHROPLASTY Left KNEE [...] Jeff Grace MD at 07/14/2023 4:06 PM MACHINE SHOP SPECIALIST INE SHOP SPECIALIST INE SHOP SPECIALIST * Ana Moran NP - 07/14/2023 7:36 [...] hypertension Mixed hyperlipidemia Diabetes mellitus, type II ([facility]) ([facility]) Coronary artery disease involving [place] coronary artery of [place] heart without angina pectoris COPD (chronic obstructive pulmonary disease) ([facility]) ([facility]) Carotid disease, bilateral ([facility]) Arthritis Aortic stenosis Chronic anticoagulation Chronic atrial fibrillation ([facility]) ([facility]) S/P aortic valve replacement with bioprosthetic valve Varicose veins of bilateral lower extremities with other complications Abnormal ankle brachial index (STELLA) Claudication ([facility]) Pain in both lower extremities Abnormal finding on lung imaging Abnormal finding on pulmonary function testing Shortness of breath TIA (transient ischemic attack) Obstructive sleep apnea (adult) (pediatric) Pulmonary hypertension ([facility]) ([facility]) Asymptomatic carotid artery stenosis, bilateral Mild persistent asthma without complication ([facility]) Leg edema Other closed fracture of distal end of right fibula with routine healing, subsequent encounter NSTEMI (non-ST elevated myocardial infarction) ([facility]) ([facility]) Elevated troponin Elevated brain natriuretic peptide (BNP) level Fall CHF (congestive heart failure) ([facility]) ([facility]) Rib fractures CHF exacerbation ([facility]) ([facility]) allopurinol 300 mg Oral Daily aspirin 81 [...] Megan Infante MD at 07/30/2023 2:23 PM MACHINE SHOP SPECIALIST INE SHOP SPECIALIST INE SHOP SPECIALIST Associated attestation - Megan Infante MD - 07/30/2023 2:23 PM MACHINE SHOP SPECIALIST I, MEGAN INFANTE MD, participated in the [...] for patient to be ready for discharge. INE SHOP SPECIALIST * Elena Richardson RN - 07/13/2023 12:56 [...] 1253 by Elena Richardson RN Outcome: Progressing INE SHOP SPECIALIST * Radha Baker RN - 07/13/2023 9:19 AM CST NCM performed bedside interview. Pt name and verified. Support: daughter, son-in-law Home: Pt lives in basement of daughter's home with a chair lift for stairs DME: chair lift, cane, walker, home oxygen through [employer] but pt states he doesn't use often. Transport Home: daughter Home Health: [facility] just finished last week Address: Verified as accurate per chart. Pharmacy: [facility] PCP: Dr. Megan De La Rosa Medications: Pt denies concerns Insurance Plan: [facility]/ [employer] life insurance Financial: Pt denies concerns. Discharge [...] Information Guardianship Documentation Not applicable Power of Pastrycook'S Assistant Healthcare Status Patient Declines Baseline ADL's Functional Status Independent;Minimum assistance Active DME Walker;Cane Behavior Oriented;Cooperative Communication Talks;Understands speaking;Understands Egyptian Psychosocial Need Indicator Mental health concerns No Diagnosis/prognosis resulting in poor adjustment or coping with illness No Diagnosis/prognosis with anticipated outcome of major lifestyle changes, including change in leak gang supervisor living environment No Complex Family concerns No [...] [place] only - Is patient going to long term? No INE SHOP SPECIALIST INE SHOP SPECIALIST * Meredith Munguia RN - 07/12/2023 10:31 [...] at this time. Skin precautions in placce. INE SHOP SPECIALIST documented in this encounter H&P Notes * [...] chronic heart failure, unspecified heart failure type ([facility]/HCC) ([facility]) Anxiety Aortic valve stenosis Arthritis Asthma, mild persistent ([facility]/HCC) 04/06/2021 Atrial fibrillation ([facility]/HCC) ([facility]) s/p PVI/WACA 10/2015 Bilateral leg pain Carotid disease, bilateral ([facility]/HCC) CHF (congestive heart failure) (HHS/HCC) ([facility]/HCC) Claudication ([facility]/HCC) COPD (chronic obstructive pulmonary disease) ([facility]/HCC) ([facility]/HCC) Coronary artery disease Diabetes mellitus, type II (HHS/HCC) ([facility]/HCC) Edema 04/19/2018 2+ pitting History of blood transfusion Hyperlipidemia Hypertension LV dysfunction Osteoarthritis PAD (peripheral artery disease) ([facility]/HCC) Pneumonia Restless leg syndrome S/P aortic valve replacement with bioprosthetic valve 2013 1999, 2013 SOB (shortness of breath) Stroke ([facility]/HCC) ([facility]) Varicose veins of bilateral lower extremities with other complications Weight gain with edema Past Surgical History: Procedure Laterality Date APPENDECTOMY CARDIAC VALVE REPLACEMENT 1999 CARDIAC VALVE REPLACEMENT 2013 CARDIOVERSION EXTERNAL 10/01/2015 CARDIOVERSION EXTERNAL 04/14/2012 COLONOSCOPY N/A 03/18/2021 COLONOSCOPY (Incomplete) performed by Gloria Navarro MD at [facility] OR COLONOSCOPY N/A 01/27/2022 COLONOSCOPY WITH COLD SNARE POLYPECTOMY performed by Gloria Navarro MD at [facility] OR HIP ARTHROPLASTY Left KNEE [...] results found. Assessment Principal Problem: CHF exacerbation ([facility]/HCC) ([facility]) SNOMED CT(R): ACUTE EXACERBATION OF [...] Megan Infante MD at 07/30/2023 2:11 PM MACHINE SHOP SPECIALIST INE SHOP SPECIALIST INE SHOP SPECIALIST Associated attestation - Megan Infante MD - 07/30/2023 2:11 PM MACHINE SHOP SPECIALIST I, MEGAN INFANTE MD, participated in the [...] with lab about pt's blood product status. satellite technician states [facility] blood type [facility] and antibody presence due to previous history of antibody presence seen in pt's chart. MDOC contacted and deferred to ED MD. Currently pt is asymptomatic with hGb of 7.3 INE SHOP SPECIALIST documented in this encounter ED Notes * Palomo Young RN - 07/12/2023 6:11 PM CST Report was actually given to YUNI Roque. INE SHOP SPECIALIST * Suly Otto RN - 07/12/2023 3:43 PM CST PT ARRIVES PER POV FROM DR. RICH OFFICE. PT C/O CHEST PAIN THAT STARTED YESTERDAY. PT STATES ALSO HAS OOZING WOUNDS TO BOTH LEGS. PT CONCERNED THEY MAY BE INFECTED. PT STATES HAS HAD THESE WOUND OFF/ON X 2-3 WEEKS. PT ALERT AND ORIENTED. INE SHOP SPECIALIST * Reema Green MD - 07/12/2023 3:32 [...] heart failure, unspecified heart failure type (HHS/HCC) ([facility]) Anxiety Aortic valve stenosis Arthritis Asthma, mild persistent ([facility]/HCC) 04/06/2021 Atrial fibrillation (HHS/HCC) ([facility]) s/p PVI/WACA 10/2015 Bilateral leg pain Carotid disease, bilateral ([facility]/HCC) CHF (congestive heart failure) (HHS/HCC) ([facility]) Claudication ([facility]) COPD (chronic obstructive pulmonary disease) ([facility]) ([facility]) Coronary artery disease Diabetes mellitus, type II (HHS/HCC) ([facility]) Edema 04/19/2018 2+ pitting History of blood transfusion Hyperlipidemia Hypertension LV dysfunction Osteoarthritis PAD (peripheral artery disease) ([facility]) Pneumonia Restless leg syndrome S/P aortic valve replacement with bioprosthetic valve 2013 SOB (shortness of breath) Stroke ([facility]CC) ([facility]) Varicose veins of bilateral lower extremities with other complications Weight gain with edema SURGICAL HISTORY Past Surgical History: Procedure Laterality Date APPENDECTOMY CARDIAC VALVE REPLACEMENT 1999 CARDIAC VALVE REPLACEMENT 2013 CARDIOVERSION EXTERNAL 10/01/2015 CARDIOVERSION EXTERNAL 04/14/2012 COLONOSCOPY N/A 03/18/2021 COLONOSCOPY (Incomplete) performed by Gloria Navarro MD at [facility] OR COLONOSCOPY N/A 01/27/2022 COLONOSCOPY WITH COLD SNARE POLYPECTOMY performed by Gloria Navarro MD at [facility] OR HIP ARTHROPLASTY Left KNEE [...] (Non-Medical): Patient declined Stress: Patient Declined (02/16/2023) [facility] - Occupational Stress Questionnaire Feeling of Stress : Patient declined Social Connections: Patient Declined (02/16/2023) Social Connection and Isolation Panel [NHANES] Frequency of Communication with Friends and Family: Patient declined Frequency of Social Gatherings with Friends and Family: Patient declined Attends Quaker Services: Patient declined Active Member of Clubs or Organizations: Patient declined Attends Club or Organization Meetings: Patient declined Marital Status: Patient declined Recent Concern: Social Connections - Moderately Isolated (02/06/2023) Social Connection and Isolation Panel [NHANES] Frequency of Communication with Friends and Family: Twice a week Frequency of Social Gatherings with Friends and Family: Twice a week Attends Quaker Services: More than 4 times per year [...] XR CHEST PORTABLE Final Result by User, [id number] (07/12 161) Examination: Portable chest. Exam time: [...] medications on file Reema Green MD 07/12/23 0803 INE SHOP SPECIALIST documented in this encounter Plan of Treatment Upcoming Encounters Date Type Department Care Team (Late st Contact Info) Description 09/25/2024 2:00 PM MACHINE SHOP SPECIALIST Appointment [facility] [address] [place] [address] Zayra Powell, SIGNAL OPERATOR [address] [place] [address] 10/16/2024 3:30 PM MACHINE SHOP SPECIALIST Office Visit [facility] [place] [address] [place] [address] Brit Gonzáles MD [address] [place] [address] Pending Results Name Type Priority Associated Diagnoses Date /Time RBC UNITS, 1 Units Blood Bank STAT 2022 5:23 PM MACHINE SHOP SPECIALIST Scheduled Orders Name Type Priority Associated Diagnoses [...] VALLECILLO DOCKED DEVICE Routine 07/16/2023 6:01 AM MACHINE SHOP SPECIALIST PROTHROMBIN TIME, VENOUS Routine 07/16/2023 5:24 AM MACHINE SHOP SPECIALIST COMPREHENSIVE METABOLIC PANEL Routine 07/16/2023 5:24 AM MACHINE SHOP SPECIALIST CBC W/DIFF AUTOMATED Routine 07/16/2023 5:24 AM MACHINE SHOP SPECIALIST POCT GLUCOSE - VALLECILLO DOCKED DEVICE Routine 07/15/2023 8:26 PM MACHINE SHOP SPECIALIST POCT GLUCOSE - VALLECILLO DOCKED DEVICE Routine 07/15/2023 5:06 PM MACHINE SHOP SPECIALIST POCT GLUCOSE - VALLECILLO DOCKED DEVICE Routine 07/15/2023 11:09 AM MACHINE SHOP SPECIALIST POCT GLUCOSE - VALLECILLO DOCKED DEVICE Routine 07/15/2023 5:54 AM MACHINE SHOP SPECIALIST PROTHROMBIN TIME, VENOUS Routine 07/15/2023 4:57 AM MACHINE SHOP SPECIALIST COMPREHENSIVE METABOLIC PANEL Routine 07/15/2023 4:57 AM MACHINE SHOP SPECIALIST CBC W/DIFF AUTOMATED Routine 07/15/2023 4:57 AM MACHINE SHOP SPECIALIST POCT GLUCOSE - VALLECILLO DOCKED DEVICE Routine 07/14/2023 7:57 [address] ABD+PEL WO CON STAT 07/14/2023 5:0 7 PM MACHINE SHOP SPECIALIST POCT GLUCOSE - VALLECILLO DOCKED DEVICE Routine 07/14/2023 4:29 PM MACHINE SHOP SPECIALIST USV STELLA [employer] ELZA Today 07/14/2023 2:27 PM MACHINE SHOP SPECIALIST POCT GLUCOSE - VALLECILLO DOCKED DEVICE Routine 07/14/2023 11:05 AM MACHINE SHOP SPECIALIST OCCULT BLOOD, FECES STAT 07/14/2023 9 :55 AM MACHINE SHOP SPECIALIST POCT GLUCOSE - VALLECILLO DOCKED DEVICE Routine 07/14/2023 6:04 AM MACHINE SHOP SPECIALIST PROTHROMBIN TIME, VENOUS Routine 07/14/2023 5:08 AM MACHINE SHOP SPECIALIST COMPREHENSIVE METABOLIC PANEL Routine 07/14/2023 5:08 AM MACHINE SHOP SPECIALIST CBC W/DIFF AUTOMATED Routine 07/14/2023 5:08 AM MACHINE SHOP SPECIALIST POCT GLUCOSE - VALLECILLO DOCKED DEVICE Routine 07/13/2023 9:34 PM MACHINE SHOP SPECIALIST POCT GLUCOSE - VALLECILLO DOCKED DEVICE Routine 07/13/2023 3:55 PM MACHINE SHOP SPECIALIST HEMOGLOBIN AND HEMATOCRIT Routine 07/13/2023 3:10 PM MACHINE SHOP SPECIALIST POCT GLUCOSE - VALLECILLO DOCKED DEVICE Routine 07/13/2023 11:39 AM MACHINE SHOP SPECIALIST TRANSFUSE RED BLOOD CELLS STAT 07/13/2023 10:31 AM MACHINE SHOP SPECIALIST POCT GLUCOSE - VALLECILLO DOCKED DEVICE Routine 07/13/2023 5:49 AM MACHINE SHOP SPECIALIST PROTHROMBIN TIME, VENOUS Routine 07/13/2023 5:08 AM MACHINE SHOP SPECIALIST BASIC METABOLIC PANEL Routine 07/13/2023 5:08 AM MACHINE SHOP SPECIALIST CBC W/DIFF AUTOMATED Routine 07/13/2023 5:08 AM MACHINE SHOP SPECIALIST TYPE & SCREEN STAT 07/12/2023 5:23 PM MACHINE SHOP SPECIALIST CULTURE, BACTERIA, BLOOD STAT 07/12/2023 4:22 PM MACHINE SHOP SPECIALIST LACTIC ACID W REFLEX (SEPSIS) STAT 07/12/2023 4:13 PM MACHINE SHOP SPECIALIST PRO-BRAIN NATRIURETIC PEPTIDE STAT 07/12/2023 4:13 PM MACHINE SHOP SPECIALIST PROTHROMBIN TIME, VENOUS STAT 07/12/2023 4:13 PM MACHINE SHOP SPECIALIST COMPREHENSIVE METABOLIC PANEL STAT 07/12/2023 4:13 PM MACHINE SHOP SPECIALIST CULTURE, BACTERIA, BLOOD STAT 07/12/2023 4:13 PM MACHINE SHOP SPECIALIST CBC W/DIFF AUTOMATED STAT 07/12/2023 4:13 PM MACHINE SHOP SPECIALIST TROPONIN, QUANT STAT 07/12/2023 4:13 PM MACHINE SHOP SPECIALIST XR CHEST PORTABLE STAT 07/12/2023 4:0 6 PM MACHINE SHOP SPECIALIST ECG 12-LEAD Routine 07/12/2023 3:37 PM MACHINE SHOP SPECIALIST documented in this encounter Results * (ABNORMAL) CBC W/DIFF AUTOMATED (07/20/2023 11:42 AM MACHINE SHOP SPECIALIST) WBC 8.00 4.00 - 10.80 x10'3/uL 07/20/2023 12:03 PM MACHINE SHOP SPECIALIST [facility] RBC 3.63(L) 4.50 - 6.10 x10'6/uL 07/20/2023 12:03 PM MACHINE SHOP SPECIALIST [facility] HGB 8.1(L) 13.0 - 18.0 G/DL 07/20/2023 12:03 PM MACHINE SHOP SPECIALIST [facility] HCT 29.1(L) 37.0 - 52.0 % 07/20/2023 12:03 PM MACHINE SHOP SPECIALIST [facility] MCV 80.2 78.0 - 100.0 FL 07/20/2023 12:03 PM MACHINE SHOP SPECIALIST [facility] MCH 22.3(L) 27.0 - 31.0 PG 07/20/2023 12:03 PM MACHINE SHOP SPECIALIST [facility] MCHC 27.8(L) 33.0 - 36.0 G/DL 07/20/2023 12:03 PM MACHINE SHOP SPECIALIST [facility] RDW 21.6(H) 11.5 - 14.5 % 07/20/2023 12:03 PM MACHINE SHOP SPECIALIST [facility] PLT 232 150 - 350 x10'3/uL 07/20/2023 12:03 PM [facility] MPV 9.9 7.4 - 10.4 FL 07/20/2023 12:03 PM MACHINE SHOP SPECIALIST [facility] CBC COMMENT NORMAL REFERENCE RANGE NOT ESTABLISHED FOR THE PROPORTIONAL LEUKOCYTE DIFFERENTIAL. 07/20/2023 12:03 PM MACHINE SHOP SPECIALIST [facility] NEUTROPHILS % 69.1 % 07/20/2023 1:30 PM MACHINE SHOP SPECIALIST [facility] LYMPHOCYTES % 14.4 % 07/20/2023 1:30 PM MACHINE SHOP SPECIALIST [facility] MONOCYTES % 10.6 % 07/20/2023 1:30 PM MACHINE SHOP SPECIALIST [facility] EOSINOPHILS % 5.0 % 07/20/2023 1:30 PM MACHINE SHOP SPECIALIST [facility] BASOPHILS % 0.5 % 07/20/2023 1:30 PM MACHINE SHOP SPECIALIST [facility] IMMATURE GRANS % 0.4 % 07/20/20 1:30 PM MACHINE SHOP SPECIALIST [facility] NRBC 0.0 % 07/20/2023 1:30 PM MACHINE SHOP SPECIALIST [facility] ABS. NEUTROPHILS 5.53 1.60 - 8.30 x10'3/uL 07/20/2023 1:30 PM MACHINE SHOP SPECIALIST [facility] ABS. LYMPHOCYTES 1.15 0.80 - 4.70 x10'3/uL 07/20/2023 1:30 PM MACHINE SHOP SPECIALIST [facility] ABS. MONOCYTES 0.85 0.00 - 1.50 x10'3/uL 07/20/2023 1:30 PM MACHINE SHOP SPECIALIST [facility] ABS. EOSINOPHILS 0.40 0.00 - 0.40 x10'3/uL 07/20/2023 1:30 PM MACHINE SHOP SPECIALIST [facility] ABS. BASOPHILS 0.04 0.00 - 0.20 x10'3/uL 07/20/2023 1:30 PM MACHINE SHOP SPECIALIST [facility] ABS. IMMATURE GRANULOCYTES 0.03 0.00 - 0.03 x10'3/uL 07/20/2023 1:30 PM MACHINE SHOP SPECIALIST [facility] ABS. NUCLEATED RBC'S 0.00 0.00 x10'3/uL 07/20/2023 1:30 PM [facility] PLT MORPH. NORMAL 07/20/2023 1:30 PM MACHINE SHOP SPECIALIST [facility] RBC MORPHOLOGY 2+ 07/20/2023 1:30 PM [facility] Comment: HYPOCHROMASIA 1+ ANISOCYTOSIS 1+ POIKILOCYTOSIS 07/20/2023 11:4 2 AM MACHINE SHOP SPECIALIST Ana Moran NP LABORATORY Final Result [facility] [address] [place] [address], * (ABNORMAL) COMPREHENSIVE METABOLIC PANEL (07/20/2023 11:42 AM MACHINE SHOP SPECIALIST) SODIUM S/P/B 135(L) 136 - 145 MMOL/L 07/20/2023 12:04 PM [facility] POTASSIUM S/P/B 4.4 3.5 - 5.1 MMOL/L 07/20/2023 12:04 PM [facility] CHLORIDE S/P/B 97(L) 98 - 107 MMOL/L 07/20/2023 12:04 PM [facility] CO2 29.5 21.0 - 32.0 MMOL/L 07/20/2023 12:04 PM [facility] GLUCOSE 184(H) 70 - 99 MG/DL 07/20/2023 12:04 PM [facility] Comment: FASTING GLUCOSE 100 TO 125 MG/DL IS CONSISTENT WITH IMPAIRED FASTING GLUCOSE. FASTING GLUCOSE >125 MG/DL IS CONSISTENT WITH DIABETES. RANDOM GLUCOSE >200 MG/DL WITH HYPERGLYCEMIC SYMPTOMS IS CONSISTENT WITH DIABETES. PER ADA GUIDELINES BUN 53(H) 6 - 24 MG/DL 07/20/2023 12:04 PM [facility] CREATININE S/P/B 1.67(H) 0.70 - 1.30 MG/DL 07/20/2023 12:04 PM [facility] CALCIUM S/P/B 9.3 8.4 - 10.5 MG/DL 07/20/2023 12:04 PM [facility] BILIRUBIN TOTAL S/P/B 0.6 0.2 - 1.0 MG/DL 07/20/2023 12:04 PM [facility] Comment: THIS ASSAY IS NOT RECOMMENDED FOR PATIENTS UNDERGOING TREATMENT WITH ELTROMBOPAG DUE TO THE POTENTIAL FOR FALSELY ELEVATED RESULTS. ALKALINE PHOSPHATASE S/P/B 134(H) 45 - 115 U/L 07/20/2023 12:04 PM [facility] AST 18 15 - 37 U/L 07/20/2023 12:04 PM [facility] ALT 16 16 - 63 U/L 07/20/2023 12:04 PM [facility] TOTAL PROTEIN S/P/B 8.1 6.4 - 8.2 G/DL 07/20/2023 12:04 PM [facility] ALBUMIN S/P/B 3.1(L) 3.4 - 5.0 G/DL 07/20/2023 12:04 PM [facility] ANION GAP 8.5 5.0 - 15.0 MMOL/L 07/20/2023 12:04 PM [facility] OSMOLALITY (CALC) 299 MOSM/KG 023 12:04 PM [facility] Comment:REFERENCE RANGE NOT ESTABLISHED GFR ESTIMATE 44(L) >89 ML/MIN/1. 73 M2 07/20/2023 12:04 PM [facility] GFR NOTES GFR REFERENCE S: 07/20/2023 12:04 PM [facility] Comment: THE ESTIMATED GFR IS [...] <15 ml/min/1.73 m2 07/20/2023 11:4 2 AM MACHINE SHOP SPECIALIST us Mookie Oh CLINICAL QUALITY MANAGER LABORATORY Final Result Performing Organization Address [facility] Co de Phone Number [facility] [address] [place] [address], * (ABNORMAL) PROTIME/INR, VENOUS (07/20/2023 11:42 AM MACHINE SHOP SPECIALIST) PROTIME 13.6(H) 9.4 - 12.5 SEC 07/20/2023 1:07 PM MACHINE SHOP SPECIALIST [facility] INR 1.2(H) 0.8 - 1.0 07/20/2023 1:07 PM MACHINE SHOP SPECIALIST [facility] 07/20/2023 11:4 2 AM MACHINE SHOP SPECIALIST us Mookie Oh CLINICAL QUALITY MANAGER LABORATORY Final Result Performing Organization Address [facility] de Phone Number [facility] [address] [place] [phone], * (ABNORMAL) POCT glucose (07/16/2023 6:01 AM MACHINE SHOP SPECIALIST) GLUCOSE POC 165(H) 70 - 99 MG/DL 07/16/2023 6:33 AM MACHINE SHOP SPECIALIST [facility] 07/16/2023 6:01 AM MACHINE SHOP SPECIALIST us Megan Infante MD POCT ORDERABLES - DEVICE Final R esult Performing Organization Address [facility] de Phone Number [facility] [address] [place] [phone], * (ABNORMAL) COMPREHENSIVE METABOLIC PANEL (07/16/2023 5:24 AM MACHINE SHOP SPECIALIST) SODIUM S/P/B 136 136 - 145 MMOL/L 07/16/2023 5:50 AM [facility] POTASSIUM S/P/B 4.4 3.5 - 5.1 MMOL/L 07/16/2023 5:50 AM [facility] CHLORIDE S/P/B 100 98 - 107 MMOL/L 07/16/2023 5:50 AM [facility] CO2 29.1 21.0 - 32.0 MMOL/L 07/16/2023 5:50 AM [facility] GLUCOSE 174(H) 70 - 99 MG/DL 07/16/2023 5:50 AM [facility] Comment: FASTING GLUCOSE 100 TO 125 MG/DL IS CONSISTENT WITH IMPAIRED FASTING GLUCOSE. FASTING GLUCOSE >125 MG/DL IS CONSISTENT WITH DIABETES. RANDOM GLUCOSE >200 MG/DL WITH HYPERGLYCEMIC SYMPTOMS IS CONSISTENT WITH DIABETES. PER ADA GUIDELINES BUN 28(H) 6 - 24 MG/DL 07/16/2023 5:50 AM [facility] CREATININE S/P/B 1.68(H) 0.70 - 1.30 MG/DL 07/16/2023 5:50 AM [facility] CALCIUM S/P/B 9.0 8.4 - 10.5 MG/DL 07/16/2023 5:50 AM [facility] BILIRUBIN TOTAL S/P/B 0.5 0.2 - 1.0 MG/DL 07/16/2023 5:50 AM [facility] Comment: THIS ASSAY IS NOT RECOMMENDED FOR PATIENTS UNDERGOING TREATMENT WITH ELTROMBOPAG DUE TO THE POTENTIAL FOR FALSELY ELEVATED RESULTS. ALKALINE PHOSPHATASE S/P/B 145(H) 45 - 115 U/L 07/16/2023 5:50 AM [facility] AST 19 15 - 37 U/L 07/16/2023 5:50 AM [facility] ALT 14(L) 16 - 63 U/L 07/16/2023 5:50 AM [facility] TOTAL PROTEIN S/P/B 7.7 6.4 - 8.2 G/DL 07/16/2023 5:50 AM MACHINE SHOP SPECIALIST [facility] ALBUMIN S/P/B 2.8(L) 3.4 - 5.0 G/DL 07/16/2023 5:50 AM MACHINE SHOP SPECIALIST [facility] ANION GAP 6.9 5.0 - 15.0 MMOL/L 07/16/2023 5:50 AM MACHINE SHOP SPECIALIST [facility] OSMOLALITY (CALC) 292 MOSM/KG 023 5:50 AM MACHINE SHOP SPECIALIST [facility] Comment:REFERENCE RANGE NOT ESTABLISHED GFR ESTIMATE 44(L) >89 ML/MIN/1. 73 M2 07/16/2023 5:50 AM [facility] GFR NOTES GFR REFERENCE S: 07/16/2023 5:50 AM [facility] Comment: THE ESTIMATED GFR IS [...] FAILURE: <15 ml/min/1.73 m2 07/16/2023 5:24 AM MACHINE SHOP SPECIALIST Shayy Duke [facility]- LABORATORY Final Res ult [facility] [address] [place] [address], * (ABNORMAL) CBC W/DIFF AUTOMATED (07/16/2023 5:24 AM MACHINE SHOP SPECIALIST) WBC 11.60(H) 4.00 - 10.80 x10'3/uL 07/16/2023 5:54 AM MACHINE SHOP SPECIALIST [facility] RBC 3.75(L) 4.50 - 6.10 x10'6/uL 07/16/2023 5:54 AM [facility] HGB 8.2(L) 13.0 - 18.0 G/DL 07/16/2023 5:54 AM [facility] HCT 29.9(L) 37.0 - 52.0 % 07/16/2023 5:54 AM [facility] MCV 79.7 78.0 - 100.0 FL 07/16/2023 5:54 AM [facility] MCH 21.9(L) 27.0 - 31.0 PG 07/16/2023 5:54 AM [facility] MCHC 27.4(L) 33.0 - 36.0 G/DL 07/16/2023 5:54 AM [facility] RDW 22.5(H) 11.5 - 14.5 % 07/16/2023 5:54 AM [facility] PLT 289 150 - 350 x10'3/uL 07/16/2023 5:54 AM [facility] MPV 9.3 7.4 - 10.4 FL 07/16/2023 5:54 AM [facility] CBC COMMENT NORMAL REFERENCE RANGE NOT ESTABLISHED FOR THE PROPORTIONAL LEUKOCYTE DIFFERENTIAL. 07/16/2023 5:54 AM [facility] NEUTROPHILS % 68.6 % 07/16/2023 6:44 AM [facility] LYMPHOCYTES % 14.2 % 07/16/2023 6:44 AM [facility] MONOCYTES % 12.6 % 07/16/2023 6:44 AM [facility] EOSINOPHILS % 3.5 % 07/16/2023 6:44 AM [facility] BASOPHILS % 0.6 % 07/16/2023 6:44 AM [facility] IMMATURE GRANS % 0.5 % 07/16/20 6:44 AM [facility] NRBC 0.0 % 07/16/2023 6:44 AM [facility] ABS. NEUTROPHILS 7.96 1.60 - 8.30 x10'3/uL 07/16/2023 6:44 AM MACHINE SHOP SPECIALIST [facility] ABS. LYMPHOCYTES 1.65 0.80 - 4.70 x10'3/uL 07/16/2023 6:44 AM MACHINE SHOP SPECIALIST [facility] ABS. MONOCYTES 1.46 0.00 - 1.50 x10'3/uL 07/16/2023 6:44 AM MACHINE SHOP SPECIALIST [facility] ABS. EOSINOPHILS 0.41(H) 0.00 - 0.40 x10'3/uL 07/16/2023 6:44 AM MACHINE SHOP SPECIALIST [facility] ABS. BASOPHILS 0.07 0.00 - 0.20 x10'3/uL 07/16/2023 6:44 AM [facility] ABS. IMMATURE GRANULOCYTES 0.06(H) 0.00 - 0.03 x10'3/uL 07/16/2023 6:44 AM [facility] ABS. NUCLEATED RBC'S 0.00 0.00 x10'3/uL 07/16/2023 6:44 AM [facility] PLT MORPH. NORMAL 07/16/2023 6:44 AM [facility] RBC MORPHOLOGY 3+ 07/16/2023 6:44 AM [facility] Comment: ANISOCYTOSIS 1+ HYPOCHROMASIA 2+ POIKILOCYTOSIS 2+ TEARDROP CELLS 1+ ELLIPTOCYTES 07/16/2023 5:24 AM MACHINE SHOP SPECIALIST Shayy [facility]GU[facility]- LABORATORY Final Res ult [facility] [address] [place] [address], * (ABNORMAL) PROTIME/INR, VENOUS (07/16/2023 5:24 AM MACHINE SHOP SPECIALIST) PROTIME 18.7(H) 9.4 - 12.5 SEC 07/16/2023 5:48 AM MACHINE SHOP SPECIALIST [facility] INR 1.6(H) 0.8 - 1.0 07/16/2023 5:48 AM MACHINE SHOP SPECIALIST [facility] 07/16/2023 5:24 AM MACHINE SHOP SPECIALIST us Megna Infante MD LABORATORY Final Result Performing Organization Address [facility] Co de Phone Number [facility] [address] [place] [address], * (ABNORMAL) POCT glucose (07/15/2023 8:26 PM MACHINE SHOP SPECIALIST) GLUCOSE POC 195(H) 70 - 99 MG/DL 07/15/2023 8:39 PM MACHINE SHOP SPECIALIST [facility] 07/15/2023 8:26 PM MACHINE SHOP SPECIALIST us Megan Infante MD POCT ORDERABLES - DEVICE Final R esult Performing Organization Address [facility] Co de Phone Number [facility] [address] [place] [address], [place] [phone] * (ABNORMAL) POCT glucose (07/15/2023 5:06 PM MACHINE SHOP SPECIALIST) GLUCOSE POC 267(H) 70 - 99 MG/DL 07/15/2023 5:09 PM MACHINE SHOP SPECIALIST [facility] 07/15/2023 5:06 PM MACHINE SHOP SPECIALIST us Megan Infante MD POCT ORDERABLES - DEVICE Final R esult Performing Organization Address [facility] Co de Phone Number [facility] [address] [place] [phone], * (ABNORMAL) POCT glucose (07/15/2023 11:09 AM MACHINE SHOP SPECIALIST) GLUCOSE POC 257(H) 70 - 99 MG/DL 07/16/2023 1:40 AM MACHINE SHOP SPECIALIST [facility] 07/15/2023 11:0 9 AM MACHINE SHOP SPECIALIST us Megan Infante MD POCT ORDERABLES - DEVICE Final R esult Performing Organization Address City/[facility]/ZIP Co de Phone Number [facility] [address] [place] [phone], [place] [phone] * (ABNORMAL) POCT glucose (07/15/2023 5:54 AM MACHINE SHOP SPECIALIST) GLUCOSE POC 202(H) 70 - 99 MG/DL 07/15/2023 5:57 AM MACHINE SHOP SPECIALIST [facility] Comment:Value Noted, No Miri tment Given 07/15/2023 5:54 AM MACHINE SHOP SPECIALIST us Megan Infante MD POCT ORDERABLES - DEVICE Final R esult Performing Organization Address [facility] Co de Phone Number [facility] [address] [place] [address], [place] [phone] * (ABNORMAL) COMPREHENSIVE METABOLIC PANEL (07/15/2023 4:57 AM MACHINE SHOP SPECIALIST) SODIUM S/P/B 134(L) 136 - 145 MMOL/L 07/15/2023 5:25 AM [facility] POTASSIUM S/P/B 4.7 3.5 - 5.1 MMOL/L 07/15/2023 5:25 AM [facility] CHLORIDE S/P/B 98 98 - 107 MMOL/L 07/15/2023 5:25 AM [facility] CO2 27.2 21.0 - 32.0 MMOL/L 07/15/2023 5:25 AM [facility] GLUCOSE 191(H) 70 - 99 MG/DL 07/15/2023 5:25 AM [facility] Comment: FASTING GLUCOSE 100 TO 125 MG/DL IS CONSISTENT WITH IMPAIRED FASTING GLUCOSE. FASTING GLUCOSE >125 MG/DL IS CONSISTENT WITH DIABETES. RANDOM GLUCOSE >200 MG/DL WITH HYPERGLYCEMIC SYMPTOMS IS CONSISTENT WITH DIABETES. PER ADA GUIDELINES BUN 23 6 - 24 MG/DL 07/15/2023 5:25 AM [facility] CREATININE S/P/B 1.53(H) 0.70 - 1.30 MG/DL 07/15/2023 5:25 AM [facility] CALCIUM S/P/B 8.8 8.4 - 10.5 MG/DL 07/15/2023 5:25 AM [facility] BILIRUBIN TOTAL S/P/B 0.6 0.2 - 1.0 MG/DL 07/15/2023 5:25 AM [facility] Comment: THIS ASSAY IS NOT RECOMMENDED FOR PATIENTS UNDERGOING TREATMENT WITH ELTROMBOPAG DUE TO THE POTENTIAL FOR FALSELY ELEVATED RESULTS. ALKALINE PHOSPHATASE S/P/B 154(H) 45 - 115 U/L 07/15/2023 5:25 AM [facility] AST 20 15 - 37 U/L 07/15/2023 5:25 AM [facility] ALT 20 16 - 63 U/L 07/15/2023 5:25 AM [facility] TOTAL PROTEIN S/P/B 7.8 6.4 - 8.2 G/DL 07/15/2023 5:25 AM [facility] ALBUMIN S/P/B 2.9(L) 3.4 - 5.0 G/DL 07/15/2023 5:25 AM [facility] ANION GAP 8.8 5.0 - 15.0 MMOL/L 07/15/2023 5:25 AM [facility] OSMOLALITY (CALC) 287 MOSM/KG 023 5:25 AM [facility] Comment:REFERENCE RANGE NOT ESTABLISHED GFR ESTIMATE 49(L) >89 ML/MIN/1. 73 M2 07/15/2023 5:25 AM [facility] GFR NOTES GFR REFERENCE S: 07/15/2023 5:25 AM [facility] Comment: THE ESTIMATED GFR IS [...] FAILURE: <15 ml/min/1.73 m2 07/15/2023 4:57 AM MACHINE SHOP SPECIALIST Ana Moran NP LABORATORY Final Result [facility] [address] [place] [address], * (ABNORMAL) CBC W/DIFF AUTOMATED (07/15/2023 4:57 AM MACHINE SHOP SPECIALIST) WBC 12.57(H) 4.00 - 10.80 x10'3/uL 07/15/2023 5:38 AM [facility] RBC 3.85(L) 4.50 - 6.10 x10'6/uL 07/15/2023 5:38 AM [facility] HGB 8.5(L) 13.0 - 18.0 G/DL 07/15/2023 5:38 AM [facility] HCT 31.0(L) 37.0 - 52.0 % 07/15/2023 5:38 AM [facility] MCV 80.5 78.0 - 100.0 FL 07/15/2023 5:38 AM [facility] MCH 22.1(L) 27.0 - 31.0 PG 07/15/2023 5:38 AM [facility] MCHC 27.4(L) 33.0 - 36.0 G/DL 07/15/2023 5:38 AM [facility] RDW 22.4(H) 11.5 - 14.5 % 07/15/2023 5:38 AM [facility] PLT 318 150 - 350 x10'3/uL 07/15/2023 5:38 AM [facility] MPV 9.7 7.4 - 10.4 FL 07/15/2023 5:38 AM [facility] CBC COMMENT NORMAL REFERENCE RANGE NOT ESTABLISHED FOR THE PROPORTIONAL LEUKOCYTE DIFFERENTIAL. 07/15/2023 5:38 AM [facility] NEUTROPHILS % 71.6 % 07/15/2023 5:55 AM [facility] LYMPHOCYTES % 11.3 % 07/15/2023 5:55 AM [facility] MONOCYTES % 12.5 % 07/15/2023 5:55 AM [facility] EOSINOPHILS % 3.3 % 07/15/2023 5:55 AM [facility] [employer] BASOPHILS % 0.6 % 07/15/2023 5:55 AM [facility] IMMATURE GRANS % 0.7 % 07/15/20 5:55 AM [facility] NRBC 0.0 % 07/15/2023 5:55 AM [facility] ABS. NEUTROPHILS 9.00(H) 1.60 - 8.30 x10'3/uL 07/15/2023 5:55 AM [facility] ABS. LYMPHOCYTES 1.42 0.80 - 4.70 x10'3/uL 07/15/2023 5:55 AM [facility] ABS. MONOCYTES 1.57(H) 0.00 - 1.50 x10'3/uL 07/15/2023 5:55 AM [facility] ABS. EOSINOPHILS 0.41(H) 0.00 - 0.40 x10'3/uL 07/15/2023 5:55 AM [facility] ABS. BASOPHILS 0.08 0.00 - 0.20 x10'3/uL 07/15/2023 5:55 AM [facility] ABS. IMMATURE GRANULOCYTES 0.09(H) 0.00 - 0.03 x10'3/uL 07/15/2023 5:55 AM [facility] ABS. NUCLEATED RBC'S 0.00 0.00 x10'3/uL 07/15/2023 5:55 AM [facility] PLT MORPH. NORMAL 07/15/2023 5:55 AM [facility] [employer] RBC MORPHOLOGY 2+ 07/15/2023 5:55 AM [facility] Comment: POIKILOCYTOSIS 2+ STOMATOCYTES 2+ HYPOCHROMASIA 07/15/2023 4:57 AM [facility] [employer] us Ana Moran NP LABORATORY Final Result Performing Organization Address [facility] Co de Phone Number [id number] [place] [address], [place] [phone] * (ABNORMAL) PROTIME/INR, VENOUS (07/15/2023 4:57 AM [facility] [employer]) PROTIME 20.5(H) 9.4 - 12.5 SEC 07/15/2023 5:23 AM [facility] [employer] INR 1.8(H) 0.8 - 1.0 07/15/2023 5:23 AM [facility] [employer] 07/15/2023 4:57 AM [employer] [employer] us Megan Infante MD LABORATORY Final Result Performing Organization Address [facility] Co de Phone Number [facility] [place] [address], [place] [phone] * (ABNORMAL) POCT glucose (07/14/2023 7:57 PM [facility]) GLUCOSE POC 196(H) 70 - 99 MG/DL 07/14/2023 9:43 PM [facility] [employer] Comment:Value Noted, No Miri tment Given 07/14/2023 7:57 PM [facility] [employer] us Megan Infante MD POCT ORDERABLES - DEVICE Final R esult Performing Organization Address [facility] Co de Phone Number [facility] [address] [place] [address], [place] [phone] * CT ABD+PEL WO CON (07/14/2023 5:07 PM [facility]) Anatomical Region Laterality Modality Abdomen Computed Tomogra phy 07/14/2023 5:34 PM [facility] Impressions 07/14/2023 6:23 PM MACHINE SHOP SPECIALIST IMPRESSION: 1. No evidence of GI bleed [...] 07/14/2023 5:34 PM Narrative 07/14/2023 6:23 PM MACHINE SHOP SPECIALIST EXAMINATION: CT Abdomen and Pelvis without contrast [...] MD, 07/14/2023 5:34 PM us Ana Moran CLINICAL QUALITY MANAGER CT Final Result * (ABNORMAL) POCT glucose (07/14/2023 4:29 PM MACHINE SHOP SPECIALIST) GLUCOSE POC 242(H) 70 - 99 MG/DL 07/14/2023 4:34 PM MACHINE SHOP SPECIALIST [facility] 07/14/2023 4:29 PM MACHINE SHOP SPECIALIST us Megan Infante MD POCT ORDERABLES - DEVICE Final R esult [facility] [address] [employer] [address], * [employer] ELZA (07/14/2023 2:27 PM MACHINE SHOP SPECIALIST) Anatomical Region Laterality Modality Extremity Ultrasound 07/15/2023 2:49 AM MACHINE SHOP SPECIALIST Impressions 07/15/2023 2:53 AM MACHINE SHOP SPECIALIST IMPRESSION: UNOBTAINABLE BILATERAL ANKLE BRACHIAL INDICES ON ACCOUNT OF SEVERE VESSEL STIFFNESS AND HARDENING. ??DIGITAL BRACHIAL INDICES ARE NORMAL. ??THE DOPPLER WAVEFORMS ARE ALSO NORMAL AND TRIPHASIC. Referred By: ?? Interpreted By: Piyush Zhang MD, 07/15/2023 2:49 AM Narrative 07/15/2023 2:53 AM MACHINE SHOP SPECIALIST EXAM: [employer] ELZA INDICATION: Lower [...] MD, 07/15/2023 2:49 AM us Ana Moran [facility] Final Result * (ABNORMAL) POCT glucose (07/14/2023 11:05 AM MACHINE SHOP SPECIALIST) GLUCOSE POC 171(H) 70 - 99 MG/DL 07/14/2023 11:07 AM MACHINE SHOP SPECIALIST [facility] 07/14/2023 11:0 5 AM MACHINE SHOP SPECIALIST Megan Infante MD POCT ORDERABLES - DEVICE Final R esult Performing Organization Address City/[facility]/ZIP Co de Phone Number [facility] [place] [address], * (ABNORMAL) OCCULT BLOOD, FECES (07/14/2023 9:55 AM MACHINE SHOP SPECIALIST) OCCULT BLOOD FECAL POSITIVE(A ) NEGATIVE 07/14/2023 10:14 AM MACHINE SHOP SPECIALIST [facility] Comment:2+ STOOL SPECIMEN / Unknown 07/14/2023 9:55 AM MACHINE SHOP SPECIALIST Reema Green MD BODY FLUIDS AND STOOLS ORDERA BLES Final Result [facility] [address] [place] [address], * (ABNORMAL) POCT glucose (07/14/2023 6:04 AM MACHINE SHOP SPECIALIST) GLUCOSE POC 154(H) 70 - 99 MG/DL 07/14/2023 6:09 AM [facility] 07/14/2023 6:04 AM MACHINE SHOP SPECIALIST Megan Infante MD POCT ORDERABLES - DEVICE Final R esult [facility] [place] [address], * (ABNORMAL) COMPREHENSIVE METABOLIC PANEL (07/14/2023 5:08 AM MACHINE SHOP SPECIALIST) SODIUM S/P/B 135(L) 136 - 145 MMOL/L 07/14/2023 5:45 AM [facility] POTASSIUM S/P/B 4.8 3.5 - 5.1 MMOL/L 07/14/2023 5:45 AM [facility] CHLORIDE S/P/B 102 98 - 107 MMOL/L 07/14/2023 5:45 AM [facility] CO2 26.4 21.0 - 32.0 MMOL/L 07/14/2023 5:45 AM [facility] GLUCOSE 164(H) 70 - 99 MG/DL 07/14/2023 5:45 AM [facility] Comment: FASTING GLUCOSE 100 TO 125 MG/DL IS CONSISTENT WITH IMPAIRED FASTING GLUCOSE. FASTING GLUCOSE >125 MG/DL IS CONSISTENT WITH DIABETES. RANDOM GLUCOSE >200 MG/DL WITH HYPERGLYCEMIC SYMPTOMS IS CONSISTENT WITH DIABETES. PER ADA GUIDELINES BUN 18 6 - 24 MG/DL 07/14/2023 5:45 AM [facility] CREATININE S/P/B 1.33(H) 0.70 - 1.30 MG/DL 07/14/2023 5:45 AM [facility] CALCIUM S/P/B 9.0 8.4 - 10.5 MG/DL 07/14/2023 5:45 AM [facility] BILIRUBIN TOTAL S/P/B 0.8 0.2 - 1.0 MG/DL 07/14/2023 5:45 AM [facility] Comment: THIS ASSAY IS NOT RECOMMENDED FOR PATIENTS UNDERGOING TREATMENT WITH ELTROMBOPAG DUE TO THE POTENTIAL FOR FALSELY ELEVATED RESULTS. ALKALINE PHOSPHATASE S/P/B 155(H) 45 - 115 U/L 07/14/2023 5:45 AM [facility] AST 21 15 - 37 U/L 07/14/2023 5:45 AM [facility] ALT 22 16 - 63 U/L 07/14/2023 5:45 AM [facility] TOTAL PROTEIN S/P/B 7.6 6.4 - 8.2 G/DL 07/14/2023 5:45 AM [facility] ALBUMIN S/P/B 2.8(L) 3.4 - 5.0 G/DL 07/14/2023 5:45 AM [facility] ANION GAP 6.6 5.0 - 15.0 MMOL/L 07/14/2023 5:45 AM [facility] OSMOLALITY (CALC) 286 MOSM/KG 023 5:45 AM [facility] Comment:REFERENCE RANGE NOT ESTABLISHED GFR ESTIMATE 58(L) >89 ML/MIN/1. 73 M2 07/14/2023 5:45 AM [facility] GFR NOTES GFR REFERENCE S: 07/14/2023 5:45 AM [facility] Comment: THE ESTIMATED GFR IS [...] FAILURE: <15 ml/min/1.73 m2 07/14/2023 5:08 AM MACHINE SHOP SPECIALIST Ana Philly Moran NP LABORATORY Final Result [facility] [address] [place] [address], * (ABNORMAL) CBC W/DIFF AUTOMATED (07/14/2023 5:08 AM MACHINE SHOP SPECIALIST) WBC 12.66(H) 4.00 - 10.80 x10'3/uL 07/14/2023 5:40 AM [facility] RBC 3.68(L) 4.50 - 6.10 x10'6/uL 07/14/2023 5:40 AM [facility] HGB 8.0(L) 13.0 - 18.0 G/DL 07/14/2023 5:40 AM [facility] HCT 29.4(L) 37.0 - 52.0 % 07/14/2023 5:40 AM [facility] MCV 79.9 78.0 - 100.0 FL 07/14/2023 5:40 AM [facility] MCH 21.7(L) 27.0 - 31.0 PG 07/14/2023 5:40 AM [facility] MCHC 27.2(L) 33.0 - 36.0 G/DL 07/14/2023 5:40 AM [facility] RDW 21.7(H) 11.5 - 14.5 % 07/14/2023 5:40 AM [facility] PLT 311 150 - 350 x10'3/uL 07/14/2023 5:40 AM [facility] MPV 9.9 7.4 - 10.4 FL 07/14/2023 5:40 AM [facility] CBC COMMENT NORMAL REFERENCE RANGE NOT ESTABLISHED FOR THE PROPORTIONAL LEUKOCYTE DIFFERENTIAL. 07/14/2023 5:40 AM MACHINE SHOP SPECIALIST [facility] 07/14/2023 5:08 AM MACHINE SHOP SPECIALIST us Ana Moran NP LABORATORY Final Result Performing Organization Address [facility]/ZIP Co de Phone Number [facility] [address] [place] [address], [place] [phone] * (ABNORMAL) PROTIME/INR, VENOUS (07/14/2023 5:08 AM MACHINE SHOP SPECIALIST) PROTIME 19.8(H) 9.4 - 12.5 SEC 07/14/2023 5:28 AM MACHINE SHOP SPECIALIST [facility] INR 1.7(H) 0.8 - 1.0 07/14/2023 5:28 AM MACHINE SHOP SPECIALIST [facility] 07/14/2023 5:08 AM MACHINE SHOP SPECIALIST us Megan Infante MD LABORATORY Final Result Performing Organization Address [facility]/ZIP Co de Phone Number [facility] [address] [place] [address], [place] [phone] * (ABNORMAL) POCT glucose (07/13/2023 9:34 PM MACHINE SHOP SPECIALIST) GLUCOSE POC 182(H) 70 - 99 MG/DL 07/13/2023 10:13 PM MACHINE SHOP SPECIALIST [facility] 07/13/2023 9:34 PM MACHINE SHOP SPECIALIST us Megan Infante MD POCT ORDERABLES - DEVICE Final R esult Performing Organization Address [facility] Co de Phone Number [facility] [address] [place] [address], [place] [phone] * (ABNORMAL) POCT glucose (07/13/2023 3:55 PM MACHINE SHOP SPECIALIST) GLUCOSE POC 258(H) 70 - 99 MG/DL 07/13/2023 4:45 PM MACHINE SHOP SPECIALIST [facility] 07/13/2023 3:55 PM MACHINE SHOP SPECIALIST us Megan Infante MD POCT ORDERABLES - DEVICE Final R esult Performing Organization Address City/[facility] Co de Phone Number [facility] [address] [place], [place] [address], [place] [phone] * (ABNORMAL) HEMOGLOBIN AND HEMATOCRIT (07/13/2023 3:10 PM MACHINE SHOP SPECIALIST) HGB 8.0(L) 13.0 - 18.0 G/DL 07/13/2023 3:34 PM MACHINE SHOP SPECIALIST [facility] HCT 28.9(L) 37.0 - 52.0 % 07/13/2023 3:34 PM MACHINE SHOP SPECIALIST [facility] 07/13/2023 3:10 PM MACHINE SHOP SPECIALIST us Megan Infante MD LABORATORY Final Result Performing Organization Address [facility] Co de Phone Number [facility] [address] [place] [address], [place] [phone] * TRANSFUSE RED BLOOD CELLS (07/13/2023 1:18 PM MACHINE SHOP SPECIALIST) us Reema Green MD NURSING TREATMENT ORDERABLES - BLOOD ADMIN Final Result * TRANSFUSE RED BLOOD CELLS, 1 Units (07/13/2023 1:18 PM MACHINE SHOP SPECIALIST) us Reema Green MD NURSING TREATMENT ORDERABLES - BLOOD ADMIN Final Result * (ABNORMAL) POCT glucose (07/13/2023 11:39 AM MACHINE SHOP SPECIALIST) GLUCOSE POC 273(H) 70 - 99 MG/DL 07/13/2023 4:45 PM MACHINE SHOP SPECIALIST [facility] 07/13/2023 11:3 9 AM MACHINE SHOP SPECIALIST us Megan Infante MD POCT ORDERABLES - DEVICE Final R esult Performing Organization Address City/[facility] Co de Phone Number [facility] [address] [place], [place] [id number], [place] [phone] * (ABNORMAL) POCT glucose (07/13/2023 5:49 AM MACHINE SHOP SPECIALIST) GLUCOSE POC 173(H) 70 - 99 MG/DL 07/13/2023 5:54 AM MACHINE SHOP SPECIALIST [facility] Comment:Value Noted, No Miri tment Given 07/13/2023 5:49 AM MACHINE SHOP SPECIALIST Megan Infante MD POCT ORDERABLES - DEVICE Final R esult [facility] [address] [place] [address], * (ABNORMAL) PROTIME/INR, VENOUS (07/13/2023 5:08 AM MACHINE SHOP SPECIALIST) PROTIME 27.8(H) 9.4 - 12.5 SEC 07/13/2023 6:03 AM MACHINE SHOP SPECIALIST [facility] INR 2.4(H) 0.8 - 1.0 07/13/2023 6:03 AM [facility] 07/13/2023 5:08 AM MACHINE SHOP SPECIALIST Reema Green MD LABORATORY Final Result [facility] [address] [place] [address], * (ABNORMAL) CBC W/DIFF AUTOMATED (07/13/2023 5:08 AM MACHINE SHOP SPECIALIST) WBC 14.54(H) 4.00 - 10.80 x10'3/uL 07/13/2023 5:51 AM MACHINE SHOP SPECIALIST [facility] RBC 3.22(L) 4.50 - 6.10 x10'6/uL 07/13/2023 5:51 AM [facility] HGB 6.8(LL) 13.0 - 18.0 G/DL 07/13/2023 5:51 AM MACHINE SHOP SPECIALIST [facility] Comment: CALLED TO HUMA AT 0545 CRITICAL VALUE HCT 25.1(L) 37.0 - 52.0 % 07/13/2023 5:51 AM MACHINE SHOP SPECIALIST [facility] MCV 78.0 78.0 - 100.0 FL 07/13/2023 5:51 AM [facility] MCH 21.1(L) 27.0 - 31.0 PG 07/13/2023 5:51 AM [facility] MCHC 27.1(L) 33.0 - 36.0 G/DL 07/13/2023 5:51 AM [facility] RDW 22.4(H) 11.5 - 14.5 % 07/13/2023 5:51 AM [facility] PLT 338 150 - 350 x10'3/uL 07/13/2023 5:51 AM [facility] MPV 9.8 7.4 - 10.4 FL 07/13/2023 5:51 AM [facility] CBC COMMENT NORMAL REFERENCE RANGE NOT ESTABLISHED FOR THE PROPORTIONAL LEUKOCYTE DIFFERENTIAL. 07/13/2023 5:51 AM [facility] NEUTROPHILS % 70.0 % 07/13/2023 6:20 AM [facility] LYMPHOCYTES % 13.8 % 07/13/2023 6:20 AM [facility] MONOCYTES % 13.7 % 07/13/2023 6:20 AM [facility] EOSINOPHILS % 1.3 % 07/13/2023 6:20 AM [facility] BASOPHILS % 0.4 % 07/13/2023 6:20 AM [facility] IMMATURE GRANS % 0.8 % 07/13/20 6:20 AM [facility] NRBC 0.4 % 07/13/2023 6:20 AM [facility] ABS. NEUTROPHILS 10.18(H) 1.60 - 8.30 x10'3/uL 07/13/2023 6:20 AM [facility] ABS. LYMPHOCYTES 2.01 0.80 - 4.70 x10'3/uL 07/13/2023 6:20 AM MACHINE SHOP SPECIALIST [facility] ABS. MONOCYTES 1.99(H) 0.00 - 1.50 x10'3/uL 07/13/2023 6:20 AM MACHINE SHOP SPECIALIST [facility] ABS. EOSINOPHILS 0.19 0.00 - 0.40 x10'3/uL 07/13/2023 6:20 AM [facility] ABS. BASOPHILS 0.06 0.00 - 0.20 x10'3/uL 07/13/2023 6:20 AM [facility] ABS. IMMATURE GRANULOCYTES 0.12(H) 0.00 - 0.03 x10'3/uL 07/13/2023 6:20 AM [facility] ABS. NUCLEATED RBC'S 0.06(H) 0.00 x10'3/uL 07/13/2023 6:20 AM [facility] PLT MORPH. NORMAL 07/13/2023 6:20 AM [facility] RBC MORPHOLOGY 3+ 07/13/2023 6:20 AM [facility] Comment: ANISOCYTOSIS 2+ MICROCYTES 2+ HYPOCHROMASIA 2+ POIKILOCYTOSIS 1+ TEARDROP CELLS 1+ ELLIPTOCYTES 07/13/2023 5:0 8 AM MACHINE SHOP SPECIALIST Reema Green MD LABORATORY Final Result [facility] [address] [place] [address], * (ABNORMAL) BASIC METABOLIC PANEL (07/13/2023 5:08 AM MACHINE SHOP SPECIALIST) SODIUM S/P/B 133(L) 136 - 145 MMOL/L 07/13/2023 5:53 AM [facility] POTASSIUM S/P/B 4.4 3.5 - 5.1 MMOL/L 07/13/2023 5:53 AM [facility] CHLORIDE S/P/B 98 98 - 107 MMOL/L 07/13/2023 5:53 AM [facility] CO2 26.5 21.0 - 32.0 MMOL/L 07/13/2023 5:53 AM [facility] GLUCOSE 158(H) 70 - 99 MG/DL 07/13/2023 5:53 AM [facility] Comment: FASTING GLUCOSE 100 TO 125 MG/DL IS CONSISTENT WITH IMPAIRED FASTING GLUCOSE. FASTING GLUCOSE >125 MG/DL IS CONSISTENT WITH DIABETES. RANDOM GLUCOSE >200 MG/DL WITH HYPERGLYCEMIC SYMPTOMS IS CONSISTENT WITH DIABETES. PER ADA GUIDELINES BUN 22 6 - 24 MG/DL 07/13/2023 5:53 AM [facility] CREATININE S/P/B 1.35(H) 0.70 - 1.30 MG/DL 07/13/2023 5:53 AM [facility] CALCIUM S/P/B 8.8 8.4 - 10.5 MG/DL 07/13/2023 5:53 AM [facility] ANION GAP 8.5 5.0 - 15.0 MMOL/L 07/13/2023 5:53 AM [facility] OSMOLALITY (CALC) 283 MOSM/KG 023 5:53 AM [facility] Comment:REFERENCE RANGE NOT ESTABLISHED GFR ESTIMATE 57(L) >89 ML/MIN/1. 73 M2 07/13/2023 5:53 AM [facility] GFR NOTES GFR REFERENCE S: 07/13/2023 5:53 AM [facility] Comment: THE ESTIMATED GFR IS [...] FAILURE: <15 ml/min/1.73 m2 07/13/2023 5:08 AM MACHINE SHOP SPECIALIST us Reema Green MD LABORATORY Final Result [facility] [address] [place] [address], * TYPE & SCREEN (07/12/2023 5:23 PM MACHINE SHOP SPECIALIST) UNITS ORDERED 1 07/12/2023 6:58 PM MACHINE SHOP SPECIALIST [facility] ABO/RH A POSITIVE 07/12/2023 6:13 PM MACHINE SHOP SPECIALIST [facility] ANTIBODY SCREEN POSITIVE 6:13 PM MACHINE SHOP SPECIALIST [facility] SAMPLE EXPIRATION 07/15/2023,2359 07/12/2023 6:13 PM MACHINE SHOP SPECIALIST [facility] ANTIBODY ID PROBABLE COLD AUTOANTIBODY. TRANSFUSE AHG CROSSMATCH LEAST INCOMPATIBLE RED BLOOD CELLS 08/31/2023 9:02 AM MACHINE SHOP SPECIALIST [facility] BLOOD UNIT NUMBER [id number] 07/12/2023 6:32 PM MACHINE SHOP SPECIALIST [facility] PRODUCT: PC LEUKOPOOR 07/12/2023 6:32 PM MACHINE SHOP SPECIALIST [facility] UNIT DIVISION 00 07/12/2023 6:32 PM MACHINE SHOP SPECIALIST [facility] BLOOD UNIT STATUS UNIT RELEASED 07/16/2023 3:46 AM MACHINE SHOP SPECIALIST [facility] TRANSFUSION STATUS OK TO TRANSFUSE 07/12/2023 6:32 PM MACHINE SHOP SPECIALIST [facility] CROSSMATCH COMPATIBLE 07/12/2023 6:32 PM MACHINE SHOP SPECIALIST [facility] BLOOD UNIT NUMBER [id number] 07/13/2023 4:57 AM MACHINE SHOP SPECIALIST [facility] PRODUCT: PC LEUKOPOOR 07/13/2023 4:57 AM MACHINE SHOP SPECIALIST [facility] UNIT DIVISION 00 07/13/2023 4:57 AM MACHINE SHOP SPECIALIST [facility] BLOOD UNIT STATUS TRANSFUSED,FINAL 07/14/2023 4:37 AM MACHINE SHOP SPECIALIST [facility] ISSUE DATE/TIME [id number] 023 4:37 AM MACHINE SHOP SPECIALIST [facility] PRODUCT CODE [id number] 07/14/2023 4:37 AM MACHINE SHOP SPECIALIST [facility] ABO/RH Unit A POS 07/14/2023 4:37 AM MACHINE SHOP SPECIALIST [facility] ABO/RH UNIT ISBT CODE [id number] 07/14/2023 4:37 AM MACHINE SHOP SPECIALIST [facility] BLOOD UNIT EXPIRATION DATE [id number] 07/14/2023 4:37 AM MACHINE SHOP SPECIALIST [facility] TRANSFUSION STATUS OK TO TRANSFUSE 07/13/2023 4:57 AM MACHINE SHOP SPECIALIST [facility] CROSSMATCH COMPATIBLE 07/13/2023 4:57 AM MACHINE SHOP SPECIALIST [facility] 07/12/2023 5:23 PM MACHINE SHOP SPECIALIST Reema Green MD BLOOD BANK TEST ORDERABLES Fi nal Result Performing Organization Address [facility]/ZIP Co de Phone Number [address] [address], * CULTURE, BACTERIA, BLOOD (07/12/2023 4:22 PM MACHINE SHOP SPECIALIST) SPEC DESCRIPTION BLOOD 07/12/2023 4:27 PM MACHINE SHOP SPECIALIST [facility] SPECIAL REQUESTS STERIPATH 07/12/2023 4:27 PM MACHINE SHOP SPECIALIST [facility] CULTURE RESULT NO GROWTH 5 DAYS 07/17/2023 12:24 PM MACHINE SHOP SPECIALIST [facility] BLOOD SPECIMEN OBTAINED FOR BLOOD CULTURE / Unknown 07/12/2023 4:22 PM MACHINE SHOP SPECIALIST 07/12/2023 4:27 PM MACHINE SHOP SPECIALIST Reema Green MD MICROBIOLOGY - GENERAL ORDERA BLES Final Result Performing Organization Address City/[facility]/ZIP Co de Phone Number [facility] [address] [place] [address], * (ABNORMAL) PROTIME/INR, VENOUS (07/12/2023 4:13 PM MACHINE SHOP SPECIALIST) PROTIME 39.1(H) 9.4 - 12.5 SEC 07/12/2023 4:30 PM MACHINE SHOP SPECIALIST [facility] INR 3.3(H) 0.8 - 1.0 07/12/2023 4:30 PM MACHINE SHOP SPECIALIST [facility] 07/12/2023 4:13 PM MACHINE SHOP SPECIALIST us Reema Green MD LABORATORY Final Result Performing Organization Address City/[facility]/ZIP Co de Phone Number [facility] [address] [place] [address], * CULTURE, BACTERIA, BLOOD (07/12/2023 4:13 PM MACHINE SHOP SPECIALIST) SPEC DESCRIPTION BLOOD 07/12/2023 3:55 PM MACHINE SHOP SPECIALIST [facility] SPECIAL REQUESTS NO SPECIAL REQUEST 07/12/2023 3:55 PM MACHINE SHOP SPECIALIST [facility] CULTURE RESULT NO GROWTH 5 DAYS 07/17/2023 12:24 PM MACHINE SHOP SPECIALIST [facility] BLOOD SPECIMEN OBTAINED FOR BLOOD CULTURE / Unknown 07/12/2023 4:13 PM MACHINE SHOP SPECIALIST 07/12/2023 4:24 PM MACHINE SHOP SPECIALIST us Reema Green MD MICROBIOLOGY - GENERAL ORDERA BLES Final Result Performing Organization Address [facility]/ZIP Co de Phone Number [address] [address], * LACTIC ACID W REFLEX (SEPSIS) (07/12/2023 4:13 PM MACHINE SHOP SPECIALIST) LACTIC ACID VENOUS 1.9 0.4 - 2.0 MMOL/L 07/12/2023 4:47 PM MACHINE SHOP SPECIALIST [facility] 07/12/2023 4:13 PM MACHINE SHOP SPECIALIST us Reema Green MD LABORATORY Final Result Performing Organization Address City/[facility]/ZIP Co de Phone Number [facility] [address] [place] [address], * TROPONIN, QUANT (07/12/2023 4:13 PM MACHINE SHOP SPECIALIST) TROPONIN I HIGH SENSITIVITY 45 0 - 76 ng/L 07/12/2023 4:49 PM MACHINE SHOP SPECIALIST [facility] 07/12/2023 4:13 PM MACHINE SHOP SPECIALIST us Reema Green MD LABORATORY Final Result [facility] [address] [place] [address], * (ABNORMAL) PRO-BRAIN NATRIURETIC PEPTIDE (07/12/2023 4:13 PM MACHINE SHOP SPECIALIST) PRO-B TYPE NATRIURETIC PEPTIDE 3,565(H) <125 PG/ML 07/12/2023 4:49 PM MACHINE SHOP SPECIALIST [facility] Comment: CUT POINTS ESTABLISHED BY [...] 72% FOR ACUTE CHF. 07/12/2023 4:13 PM MACHINE SHOP SPECIALIST us Reema Green MD LABORATORY Final Result Performing Organization Address City/[facility]/ZIP Co de Phone Number [facility] [address] [place] [address], * (ABNORMAL) COMPREHENSIVE METABOLIC PANEL (07/12/2023 4:13 PM MACHINE SHOP SPECIALIST) SODIUM S/P/B 132(L) 136 - 145 MMOL/L 07/12/2023 4:49 PM MACHINE SHOP SPECIALIST [facility] POTASSIUM S/P/B 4.2 3.5 - 5.1 MMOL/L 07/12/2023 4:49 PM [employer] [employer] [facility] CHLORIDE S/P/B 97(L) 98 - 107 MMOL/L 07/12/2023 4:49 PM [facility] CO2 25.5 21.0 - 32.0 MMOL/L 07/12/2023 4:49 PM [facility] GLUCOSE 132(H) 70 - 99 MG/DL 07/12/2023 4:49 PM [facility] Comment: FASTING GLUCOSE 100 TO 125 MG/DL IS CONSISTENT WITH IMPAIRED FASTING GLUCOSE. FASTING GLUCOSE >125 MG/DL IS CONSISTENT WITH DIABETES. RANDOM GLUCOSE >200 MG/DL WITH HYPERGLYCEMIC SYMPTOMS IS CONSISTENT WITH DIABETES. PER [employer] GUIDELINES BUN 22 6 - 24 MG/DL 07/12/2023 4:49 PM [facility] CREATININE S/P/B 1.43(H) 0.70 - 1.30 MG/DL 07/12/2023 4:49 PM [facility] CALCIUM S/P/B 8.8 8.4 - 10.5 MG/DL 07/12/2023 4:49 PM [facility] BILIRUBIN TOTAL S/P/B 0.6 0.2 - 1.0 MG/DL 07/12/2023 4:49 PM [facility] Comment: THIS ASSAY IS NOT RECOMMENDED FOR PATIENTS UNDERGOING TREATMENT WITH ELTROMBOPAG DUE TO THE POTENTIAL FOR FALSELY ELEVATED RESULTS. ALKALINE PHOSPHATASE S/P/B 182(H) 45 - 115 U/L 07/12/2023 4:49 PM [facility] AST 19 15 - 37 U/L 07/12/2023 4:49 PM [facility] ALT 22 16 - 63 U/L 07/12/2023 4:49 PM [facility] TOTAL PROTEIN S/P/B 8.1 6.4 - 8.2 G/DL 07/12/2023 4:49 PM [facility] ALBUMIN S/P/B 3.0(L) 3.4 - 5.0 G/DL 07/12/2023 4:49 PM [facility] ANION GAP 9.5 5.0 - 15.0 MMOL/L 07/12/2023 4:49 PM [facility] OSMOLALITY (CALC) 279 MOSM/KG 023 4:49 PM [facility] Comment:REFERENCE RANGE NOT ESTABLISHED GFR ESTIMATE 53(L) >89 ML/MIN/1. 73 M2 07/12/2023 4:49 PM [facility] GFR NOTES GFR REFERENCE S: 07/12/2023 4:49 PM [facility] Comment: THE ESTIMATED GFR IS [...] FAILURE: <15 ml/min/1.73 m2 07/12/2023 4:13 PM [employer] us Reema Green MD LABORATORY Final Result [facility] [address] [place] [address], * (ABNORMAL) CBC W/DIFF AUTOMATED (07/12/2023 4:13 PM [employer]) WBC 13.94(H) 4.00 - 10.80 x10'3/uL 07/12/2023 4:35 PM [employer] [facility] RBC 3.40(L) 4.50 - 6.10 x10'6/uL 07/12/2023 4:35 PM [facility] HGB 7.3(L) 13.0 - 18.0 G/DL 07/12/2023 4:35 PM [facility] HCT 26.5(L) 37.0 - 52.0 % 07/12/2023 4:35 PM [facility] MCV 77.9(L) 78.0 - 100.0 FL 07/12/2023 4:35 PM [employer] [facility] MCH 21.5(L) 27.0 - 31.0 PG 07/12/2023 4:35 PM [employer] [facility] MCHC 27.5(L) 33.0 - 36.0 G/DL 07/12/2023 4:35 PM [facility] RDW 22.5(H) 11.5 - 14.5 % 07/12/2023 4:35 PM [employer] [facility] PLT 325 150 - 350 x10'3/uL 07/12/2023 4:35 PM [facility] MPV 9.8 7.4 - 10.4 FL 07/12/2023 4:35 PM [facility] CBC COMMENT NORMAL REFERENCE RANGE NOT ESTABLISHED FOR THE PROPORTIONAL LEUKOCYTE DIFFERENTIAL. 07/12/2023 4:35 PM [facility] NEUTROPHILS % 75.3 % 07/12/2023 5:46 PM [facility] LYMPHOCYTES % 11.0 % 07/12/2023 5:46 PM [facility] MONOCYTES % 10.7 % 07/12/2023 5:46 PM [facility] EOSINOPHILS % 0.9 % 07/12/2023 5:46 PM [facility] BASOPHILS % 0.4 % 07/12/2023 5:46 PM [facility] IMMATURE GRANS % 1.7 % 07/12/20 5:46 PM [facility] NRBC 0.4 % 07/12/2023 5:46 PM [facility] ABS. NEUTROPHILS 10.50(H) 1.60 - 8.30 x10'3/uL 07/12/2023 5:46 PM [facility] ABS. LYMPHOCYTES 1.53 0.80 - 4.70 x10'3/uL 07/12/2023 5:46 PM M[facility] SPECIAL[facility] ABS. MONOCYTES 1.49 0.00 - 1.50 x10'3/uL 07/12/2023 5:46 PM [facility] ABS. EOSINOPHILS 0.13 0.00 - 0.40 x10'3/uL 07/12/2023 5:46 PM [facility] ABS. BASOPHILS 0.06 0.00 - 0.20 x10'3/uL 07/12/2023 5:46 PM [facility] ABS. IMMATURE GRANULOCYTES 0.24(H) 0.00 - 0.03 x10'3/uL 07/12/2023 5:46 PM [facility] ABS. NUCLEATED RBC'S 0.06(H) 0.00 x10'3/uL 07/12/2023 5:46 PM [facility] PLT MORPH. NORMAL 07/12/2023 5:46 PM [facility] RBC MORPHOLOGY 2+ 07/12/2023 5:46 PM [facility] Comment:HYPOCHROMASIA 07/12/2023 4:13 PM [facility] Reema Green MD LABORATORY Final Result [facility] [address] [place] [address], * XR CHEST PORTABLE (07/12/2023 4:06 PM [facility]) Anatomical Region Laterality Modality Chest Radiographic Stephie ging 07/12/2023 4:13 PM [facility] Impressions 07/12/2023 4:17 PM [facility] IMPRESSION: Cardiomegaly with congestive changes as described. No focal infiltrates. Ordered By: REEMA GREEN Interpreted By: Nicko Portillo MD, 07/12/2023 4:13 PM Narrative 07/12/2023 4:17 PM [facility] Examination: Portable chest. Exam time: 1542 hours. [...] * ECG 12 lead (07/12/2023 3:37 PM [facility]) 07/12/2023 3:37 PM [facility]IST Narrative [facility] - 07/12/2023 3:46 PM MACHINE [facility] SPECIALIST ? [facility] ?[address] [place], [place] ??[address] ? Test Date: ?2023-07-12 Pat Name: ? OBIE LAY ?Department: ?? 3 ? Room: ? Gender: ? Male ? Director Of Online Education: ?? : ?1955 ? Requested By: REEMA GREEN Order Number: [id number] ? Reading : ?? Easton Rosario ? Measurements Intervals ?[place] ? Rate: ? 102 ?P: ? [place]: ? 0 ?QRS: ?-38 QRSD: ? 134 ?T: ?131 QT: ? 373 ? QTc: ?486 ? Interpretive Statements underlying atrial mechanism unclear - supra ventricular rhythm LEFT AXIS DEVIATION baseline noise [facility] Procedure Note Easton Rosario MD - 07/12/2023 [facility] [address] [facility] [facility] [place] [address] Test Date: 2023-07-12 Pat Name: OBIE LAY Department: 3 Room: Gender: Male Director Of Online Education: : 1955 Requested By: REEMA GREEN Order Number: [id number] Reading MD: Easton Rosario Measurements Intervals [place] Rate: 102 P: [place]: 0 QRS: -38 QRSD: 134 T: 131 QT: 373 QTc: 486 Interpretive Statements underlying atrial mechanism unclear - supra ventricular rhythm LEFT AXIS DEVIATION baseline noise [facility]E [facility] us Reema Green MD ECG ORDERABLES Final Result [facility] documented in this encounter Visit Diagnoses Diagnosis CHF exacerbation ([facility])- Primary Congestive heart failure, unspecified CHF exacerbation ([facility]) Congestive heart failure, unspecified Chest pain Chest pain, unspecified Cellulitis of right leg Cellulitis and abscess of leg, except foot Anemia Anemia, unspecified Shortness of breath Chronic combined systolic and diastolic congestive heart failure ([facility]) Chronic combined systolic and diastolic heart failure documented in this encounter Admitting Diagnoses Diagnosis CHF exacerbation ([facility]) Congestive heart failure, unspecified documented in this encounter Administered Medications Inactive Administered Medications - up to 3 most recent administrations Medication Order MAR Action Action Date Dose Rate Site allopurinol (ZYLOPRIM) tablet 300 mg 300 mg, Oral, Daily, First dose on Wed07/12/23 at 2014, Until Discontinued Given 07/16/2023 8:49 AM [facility] 300 mg Given 07/15/2023 8:55 AM [facility] 300 mg Given 07/14/2023 8:15 AM [facility] 300 mg aspirin chewable tablet 81 mg 81 mg, Oral, Daily, First dose on Wed07/12/23 at 2014, Until Discontinued Given 07/16/2023 8:49 AM [facility] 81 mg Given 07/15/2023 8:56 AM [facility] 81 mg Given 07/14/2023 8:15 AM [facility] 81 mg atorvastatin (LIPITOR) tablet 80 mg 80 mg, Oral, Nightly at bedtime, First dose on Wed07/12/23 at 2100, Until Discontinued Given 07/15/2023 8:21 PM [facility] 80 mg Given 07/14/2023 9:26 PM [facility] 80 mg Given 07/13/2023 9:34 PM [facility] 80 mg carvedilol (COREG) tablet 3.125 mg 3.125 mg, Oral, 2 times daily, First dose on Wed07/12/23 at 2015, Until Discontinued, Take with meal or snack Given 07/16/2023 8:50 AM [facility] 3.125 mg Given 07/15/2023 8:21 PM [facility] 3.125 mg Given 07/15/2023 8:56 AM [facility] 3.125 mg cefTRIAXone (ROCEPHIN) 1 g in sodium chloride 0.9 % 50 mL IVPB 1 g, Intravenous, at 100 mL/hr, Once, 1 dose, On Wed07/12/23 at 1715 New Bag 07/12/2023 5:42 PM [facility] 1 g 100 mL/hr cyclobenzaprine (FLEXERIL) tablet 10 mg 10 mg, Oral, 3 times daily PRN, Muscle Spasms, Starting on Wed07/12/23 at 1939, Until Wed07/16/23 at 1332 Given 07/15/2023 10:30 AM [facility] 10 mg Given 07/12/2023 9:28 PM [facility] 10 mg empagliflozin (JARDIANCE) tablet 25 mg 25 mg, Oral, Daily, First dose on Wed07/12/23 at 2000, Until Discontinued Given 07/16/2023 8:49 AM [facility] 25 mg Given 07/15/2023 8:56 AM [facility] SPECIAL[facility] 25 mg Given 07/14/2023 8:16 AM [facility] 25 mg ferrous sulfate (65 mg elemental) tablet 325 mg 325 mg, Oral, Daily with breakfast, First dose on Wed07/13/23 at 0800, Until Discontinued Given 07/16/2023 8:49 AM [facility] 325 mg Given 07/15/2023 8:55 AM [facility] SPECIAL[facility] 325 mg Given 07/14/2023 8:16 AM [facility] 325 mg folic acid (FOLVITE) tablet 1 mg 1 mg, Oral, Daily, First dose on Wed07/12/23 at 2000, Until Discontinued Given 07/16/2023 8:49 AM [facility] 1 mg Given 07/15/2023 8:56 AM [facility] 1 mg Given 07/14/2023 8:15 AM [facility] 1 mg furosemide (LASIX) tablet 80 mg 80 mg, Oral, Daily, First dose on Wed07/12/23 at 2000, Until Discontinued Given 07/16/2023 8:49 AM [facility] 80 mg Given 07/15/2023 8:55 AM [facility] 80 mg Given 07/14/2023 8:15 AM [facility] 80 mg gabapentin (NEURONTIN) capsule 400 mg 400 mg, Oral, 2 times daily, First dose on Wed07/12/23 at 2100, Until Discontinued Given 07/16/2023 8:49 AM [facility] 400 mg Given 07/15/2023 8:21 PM [facility] 400 mg Given 07/15/2023 8:55 AM [facility] 400 mg glipiZIDE XL (GLUCOTROL XL) 24 hr tablet 5 mg 5 mg, Oral, Daily with breakfast, First dose on Wed07/13/23 at 0800, Until Discontinued, Do not break, chew, or crush. Given 07/16/2023 8:49 AM [facility] 5 mg Given 07/15/2023 8:56 AM [facility] 5 mg Given 07/14/2023 8:16 AM [facility] 5 mg HYDROcodone-acetaminophen (NORCO) 10-325 MG tablet 1 tablet 1 tablet, Oral, Every 6 hours PRN, Moderate pain (Scale 4 - 7), Starting on Wed07/15/23 at 1024, Until Wed07/16/23 at 1332, Maximum dose of acetaminophen is 4000 mg from all sources in 24 hours. Given 07/16/2023 1:13 AM [facility] 1 tablet Given 07/15/2023 3:07 PM [facility] 1 tablet HYDROcodone-acetaminophen (NORCO) 7.5-325 MG tablet 1 tablet 1 tablet, Oral, 3 times daily PRN, Moderate pain (Scale 4 - 7), Starting on Wed07/12/23 at 1939, Until Wed07/15/23 at 0825, Maximum dose of acetaminophen is 4000 mg from all sources in 24 hours. Given 07/14/2023 1:16 PM [facility] 1 tablet Given 07/14/2023 5:59 AM [facility] 1 tablet Given 07/13/2023 9:34 PM [facility] 1 tablet HYDROcodone-acetaminophen (NORCO) 7.5-325 MG tablet 1 tablet 1 tablet, Oral, Every 6 hours PRN, Moderate pain (Scale 4 - 7), Starting on Wed07/15/23 at 0830, Until Wed07/15/23 at 1024, Maximum dose of acetaminophen is 4000 mg from all sources in 24 hours. Given 07/15/2023 8:56 AM [facility] 1 tablet hydrOXYzine (ATARAX) tablet 50 mg 50 mg, Oral, 3 times daily, First dose on Wed07/12/23 at 2100, Until Discontinued Given 07/16/2023 8:49 AM [facility] 50 mg Given 07/15/2023 8:21 PM [facility] 50 mg Given 07/15/2023 3:08 PM [facility] 50 mg insulin glargine (LANTUS) injection 15 Units 15 Units, Subcutaneous, Nightly at bedtime, First dose on Wed07/13/23 at 2100, Until Discontinued Given 07/15/2023 8:21 PM [facility] 15 Units Left Upper Abdomen Given 07/14/2023 9:27 PM [facility] 15 Units Le ft Arm Given 07/13/2023 9:39 PM [facility] 15 Units Le ft Arm losartan (COZAAR) tablet 25 mg 25 mg, Oral, Daily, First dose on Wed07/12/23 at 2000, Until Discontinued Given 07/16/2023 8:49 AM [facility] 25 mg Given 07/15/2023 8:56 AM M[facility] 25 mg Given 07/14/2023 8:16 AM [facility] 25 mg morphine injection 1 mg 1 mg, Intravenous, Every 2 hours PRN, Severe pain (Scale 8 - 10), Starting on Wed07/13/23 at 1003, Until Wed07/15/23 at 0824 Given 07/14/2023 7:58 PM [facility] 1 mg Given 07/14/2023 8:16 AM [facility] 1 mg Given 07/14/2023 4:23 AM [facility] 1 mg oxacillin 1 g in sodium chloride 0.9 % 50 mL IVPB 1 g, Intravenous, at 100 mL/hr, Every 4 hours, First dose (after last modification) on Wed07/13/23 at 1200, Until Discontinued New Bag 07/16/2023 5:10 AM [facility] 1 g 100 mL/hr New Bag 07/16/2023 1:13 AM [facility] 1 g 100 mL/hr New Bag 07/15/2023 9:14 PM [facility] 1 g 100 mL/hr pantoprazole EC (PROTONIX) tablet 40 mg 40 mg, Oral, Daily, First dose on Wed07/13/23 at 0900, Until Discontinued, Do not break, chew, or crush. Given 07/16/2023 8:49 AM [facility] 40 mg Given 07/15/2023 8:56 AM [facility] 40 mg Given 07/14/2023 8:16 AM [facility] 40 mg potassium chloride CR (KLOR-CON M) tablet 20 mEq 20 mEq, Oral, 2 times daily, First dose on Wed07/12/23 at 2100, Until Discontinued, Do not chew, crush, or suck on tablet. May break in half. May dissolve whole tablet in 120 mL of water and drink immediately. Given 07/16/2023 8:49 AM [facility] 20 mEq Given 07/15/2023 8:21 PM [facility] 20 mEq Given 07/15/2023 8:56 AM [facility] 20 mEq rOPINIRole (REQUIP) tablet 4 mg 4 mg, Oral, Nightly at bedtime, First dose on Wed07/12/23 at 2100, Until Discontinued Given 07/15/2023 8:21 PM [facility] 4 m g Given 07/14/2023 9:26 PM [facility] 4 mg Given 07/13/2023 9:34 PM [facility] 4 mg sertraline (ZOLOFT) tablet 50 mg 50 mg, Oral, Daily, First dose on Wed07/13/23 at 0900, Until Discontinued Given 07/16/2023 8:49 AM [facility] 50 mg Given 07/15/2023 8:56 AM [facility] 50 mg Given 07/14/2023 8:15 AM [facility] 50 mg sodium chloride 0.9% infusion at 10 mL/hr, Intravenous, Continuous, Starting on Wed07/12/23 at 1715, Until Wed07/13/23 at 1714, Infuse at TKO rate New Bag 07/13/2023 1:15 PM [facility] 250 mLs 10 mL/hr New Bag 07/12/2023 6:19 PM [facility] 250 mLs 10 mL/hr spironolactone (ALDACTONE) tablet 25 mg 25 mg, Oral, Daily, First dose on Wed07/12/23 at 2100, Until Discontinued, HAZARDOUS MEDICATION: wear single chemotherapy approved gloves. Do not open or split. If crushing, use approved closed-system crushing device for hazardous medications. Given 07/16/2023 8:50 AM [facility]IST 25 mg Given 07/15/2023 8:55 AM [facility] SPECIALIST 25 mg Given 07/14/2023 8:15 AM M[facility] 25 mg traZODone (DESYREL) tablet 300 mg 300 mg, Oral, Nightly at bedtime, First dose on Wed07/12/23 at 2100, Until Discontinued Given 07/15/2023 8:[address] 300 mg Given 07/14/2023 9:27 PM [facility] 300 mg Given 07/13/2023 9:34 PM [facility] 300 mg triamcinolone (KENALOG) 0.1 % cream Topical, 2 times daily, First dose on Wed07/12/23 at 2100, Until Discontinued Given 07/16/2023 8:50 AM MACHINE [facility] SPECIALIST Given 07/15/2023 8:22 PM MACHINE [facility] SPECIALIST Given 07/15/2023 8:59 AM MACHINE [facility] SPECIALIST warfarin (COUMADIN) tablet 5 mg 5 mg, Oral, Daily, First dose on Wed07/13/23 at 0900, Until Discontinued, HAZARDOUS MEDICATION: wear single chemotherapy approved gloves. Do not open or split. If crushing, use approved closed-system crushing device for hazardous medications. Given 07/14/2023 8:16 AM MACHINE [facility] SPECIALIST 5 mg Given 07/13/2023 8:13 AM MACHINE [facility] SPECIALIST 5 mg documented in this encounter Active and Recently Administered Medications Times are shown in [facility]. Scheduled Medication Order 07/14/2023 07/15/2023 07/16/2023 allopurinol [...] documented as of this encounter Care Teams House Painter Relationship Specialty Start Date End Date Megan Infante MD [address] [facility] [place] [id number] PCP - General FAMILY PRACTICE 04/06/16 Piyush Pandey MD [place] Motorboat Operator CARDIOVASCULAR DISEASE 04/06/16 12/28/23 Sharmila Davis APRN, CLINICAL QUALITY MANAGER-C [address] [place] [phone] NURSE PRACTITIONER 01/04/17 04/03/24 Zaki Ortiz MD [address] [place] [phone] Consulting Physician PULMONARY DISEASE 07/12/19 Concetta Acevedo MD [address] [place] [address] [id number] Surgeon NEUROLOGICAL SURGERY 12/16/22 Jeff Grace MD [address] [place] [address] Consulting Physician INTERNAL MEDICINE 02/11/23 documented as of this encounter
--- OUTSIDE RECORDS SUMMARY | 2024-09-03 20:38 | XMS_ITS | Encounter Summary ---
Author Organization [facility] Address [facility]6 [facility] [place] [address] [place] [address] Care Team Providers Care Coach Cleaner Name Role Phone Amauri Pandey MD Unavailable Unavailabl e Megan Infante MD Primary Care Provider [phone] Sharmila Davis APRN LOOP TACKER-C Unavailable [phone] Linda Block MD Unavailable [phone] Jeff Delgado MD Unavailable Zaki Ortiz MD Unavailable [phone] Romeo-Concetta Pond MD Unavailable + [phone] Reason for Referral * Imaging (Urgent) - Closed Specialty Diagnoses / Procedures Referred By Contac t Referred To Contact RADIOLOGY Procedures MRI BRAIN WO CON Alyssa Bucio PA-C [address] [address] Phone: tel: fax: Referral ID Status Reason Start Date Expiration Date Visits Re quested Visits Authorized [id number] Closed 02/06/2023 02/07/2024 1 1 * (Routine) - Canceled Specialty Diagnoses / Procedures Referred By Contac t Referred To Contact Procedures OT eval and treat Alyssa Bucio PA-C [address] [place] [phone] Phone: tel: fax: Referral ID Status Reason Start Date Expiration Date V isits Requested Visits Authorized [id number] Canceled 02/06/2023 02/07/2024 1 1 * (Routine) - Canceled Specialty Diagnoses / Procedures Referred By Contac t Referred To Contact Procedures PT eval and treat Alyssa Bucio PA-C [address] [address] Phone: tel: fax: Referral ID Status Reason Start Date Expiration Date V isits Requested Visits Authorized [id number] Canceled 02/06/2023 02/07/2024 1 1 * Imaging (Urgent) - Closed Specialty Diagnoses / Procedures Referred By Contac t Referred To Contact RADIOLOGY Procedures CT CHEST+ABD+PEL WO CON CT CHEST+ABD+PEL W CON Amauri Hammond MD Phone: tel: fax: Referral ID Status Reason Start Date Expiration Date Visits Re quested Visits Authorized [id number] Closed 02/06/2023 02/07/2024 1 1 * Imaging (Urgent) - Closed Specialty Diagnoses / Procedures Referred By Contac t Referred To Contact RADIOLOGY Procedures CT CERV SPINE WO CON Amauri Hammond MD Phone: tel: fax: Referral ID Status Reason Start Date Expiration Date Visits Re quested Visits Authorized [id number] Closed 02/06/2023 02/07/2024 1 1 * Imaging (Emergency) - Closed Specialty Diagnoses / Procedures Referred By Contac t Referred To Contact RADIOLOGY Procedures CT HEAD WO CON Amauri Hammond MD Phone: tel: fax: Referral ID Status Reason Start Date Expiration Date Visits Re quested Visits Authorized [id number] Closed 02/06/2023 02/07/2024 1 1 Reason for Visit * Reason Comments Fall * Auth/Cert (Routine) Specialty Diagnoses / Procedures Referred By Contac t Referred To Contact Diagnoses Rib fractures Rib fractures Procedures NONE Referral ID Status Reason Start Date Expiration Date Visits Re quested Visits Authorized [id number] 1 1 Encounter Details Date Type Department Care Team (Late st Contact Info) Description 02/06/2023 1:41 AM CDT - 02/09/2023 1:44 PM CDT Hospital Encounter [facility] Surgical [address] [place] [address] Amauri Hammond MD [address] [place] [address] Bill Mills MD [address] [place] [address] [phone] Angeles Carney DO [address] [place] [phone] Diamond Ace MD [address] [place], [place] [id number] Fall Discharge Disposition: Swing Bed Social History [...] often do you attend chur ch or taoist services? More than 4 times per year [...] move on to questions 3-9 0 12/01/2021 [facility] Occupat ional Health - Occupational Stress [...] [place] [facility] [place] (including now)? No 02/06/2023 Sex and Gender [...] SURGERY SERVICE KESHA SANFORD, 02/09/2023, 12:17 PM [facility] ACUTE CARE SURGERY SERVICE: EMERGENCY SURGERY, TRAUMA, SURGICAL CRITICAL CARE [address] [place] [phone] TO CONTACT PROVIDERS: Critical Care Construction Trades Teacher/Trauma Surgeon MD: [id number] Emergency Surgery MD: [id number] Advanced Practice Provider - Trauma: [id number] Advanced Practice Provider - Emergency Surgery [id number] Name: Obie Sims Date of : 1955 Room/Bed: [facility] Date: 02/09/2023 Time: 12:17 PM ADMISSION [...] fractures 02/06/2023 ??? CHF (congestive heart failure) ([facility]) ??? NSTEMI (non-ST elevated myocardial infarction) ([facility]) 02/01/2022 ??? Elevated troponin 02/01/2022 ??? Elevated [...] II (CMS/HCC) ??? Coronary artery disease involving sleetmute coronary artery of sleetmute heart without angina pectoris ??? COPD (chronic [...] rule out acute on chronic infarct. The [facility] trauma team was consulted and the [...] was having high blood glucose levels, the [facility] hospitalist was consulted for DM management. Dr. Delgado with vascular medicine was consulted for lower extremity edema, wound team on board, and was treated with short stretch bandages with Tubigrib. Case management on board and referrals were sent to [facility] unit per family request. On 02/09, the patients VS were stable, he was voiding and tolerating diet without issue. He was cleared for discharge per the Hospitalist service. He will be discharged to [facility] in stable condition. CONSULTS OBTAINED: Vascular Surgery: Lesly Hospitalist: Ivan LANCASTER MEDICATIONS: Prior to Admission medications Medication Sig [...] No results found for: PH, PCO2, PO2, [id number], BICARBWB, BASEDEFICIT, BASEEXCESS CULTURES & SENSITIVITIES: Results [...] nurse or doctor Signed by: Dr. Jamie Hillirad MD What changed: ?? how much to [...] puff into the lungs daily. Generic drug: Nxcomoqzgjd-Vfzeiwaek-Nnopxn STOP taking these medications amLODIPine 2.5 MG [...] mass ?? Cholelithiasis Contact information: [place] [address] Contact information for after-discharge care Destination [facility] . Service: Correction Contact information: [address] [facility] [address] The time spent discharging the patient [...] Everywhere. * Getting Up From a Fall (Danish) documented in this encounter Medications at Time [...] mg total) by mouth daily. 04/18/2014 4 camphor-menthol (SARNA) lotion Apply topically 2 (two) [...] 3 warfarin (COUMADIN) 1 MG tablet Take 0.5 tablets (0.5 mg total) by mouth daily. Take with 5mg tab to make it 5.5mg daily 30 tablet 02/09/2023 3 warfarin (COUMADIN) 5 MG tablet 1 tablet (5 mg total) daily. As directed 05/14/2022 3 documented as of this encounter Progress Notes * Yvonne Harris RN - 02/09/2023 1:44 PM CDT Nurse to nurse report [phone] Shared with bedside nurse so to call [...] Recommendation: Swing bed unit Activity Recommendation for shift supervisor melting: Up with gait belt x1 assist using [...] hospitalization and progression may d/c home. Modified Greenlee Score Interval Daily Interval Score 0-6 4 [...] Name: Obie Sims Primary Language of learner: Danish Patient was educated on transfers ADLs balance [...] Drug interactions: Potential to increase INR: Sertraline (WHEEL CUTTER), Ropinirole, Allopurinol (WHEEL CUTTER), getting regular APAP with norco usage Potential to decrease INR: trazodone, furosemide, metolazone Potential to increase the risk of bleeding: ASA Warfarin Sensitivity: moderate, based on the following risk factors: drug interactions, end state renal disease or Scr > 2.2 and age 66-79. Hgb/Hct today are stable, last labs 02/08 INR today is Therapeutic Patient reports last dose WHEEL CUTTER 02/05 AM. INR w/ significant fall. OK [...] Bill Mills/DO JAIME Queen, PharmD Phone number: [phone] 02/09/2023 10:38 AM * Karen Quezada RN - 02/09/2023 9:47 [place] [address] #[phone] fax #[phone] Pt/daughter have requested transport @ [place] transport van will transport pt today @ 1330.Pt willneed to be in the main lobby for transport @ 1330 today. TRAUMA service KESHA Miles aware of above. 8th floor storage battery charger aware of above. Pt aware of transport time. [facility] aware of transport time. * Randi Bucio RN - 02/08/2023 2:36 PM CDT 02/08/23 1400 Wound 12/28/22 Pretibial Right Date First Assessed/Time First Assessed: 12/28/221999 Location: Pretibial Wound Location Orientation: Right Pre-existing: Yes Wound Bed Assessment Partial Thickness;Loris Karen-wound Assessment Hemosiderin staining Wound Length (cm) (cluster) Drainage Amount Scant Interventions Cleansed Dressing Foam border adhesive;Tubigrip Dressing Changed New Wound 02/07/23 Pretibial Left Date First Assessed/Time First Assessed: 02/07/231999 Wound number: 1 Location: Pretibial Wound Location Orientation: Left Pre-existing: Yes Wound Bed Assessment Partial Thickness;Full Thickness;Loris Karen-wound Assessment Hemosiderin staining;Edema Wound Length (cm) [...] with sock removal. * Ana Maria Porter, WHEEL CUTTER - 02/08/2023 2:07 PM CDT PT Treatment Discharge Recommendation: Swing bed unit Activity Recommendation for shift supervisor melting: up with 1, 2ww, gait belt 02/08/23 [...] balance to improve overall functional mobility. Modified Greenlee Score Interval Daily Interval Score 0-6 4 [...] Name: Obie Sims Primary Language of learner: Danish Patient was educated on stroke rehabilitation management [...] his 1st choice for placement would be [place], [place]. Referral sent. * Opal Christianson RN [...] CDT PASSR screen completed Assessment Pro Individual ID:[id number] Assessment ID:[id number] * Jamie Hilliard MD - 02/08/2023 10:43 [...] with his daughter & her family in [place], [place]. Pt does not drive.) Current living [...] to basement.) Behavior Oriented Communication Talks;Understands speaking;Understands Danish;Other (Comment) (Wears reading glasses.) Current Services Being Provided Outpt therapy (Previous short term rehab placement @ [place], [place] & [place], [place].) DC screening tool This is a [...] patient may go to dialysis, physician appt, hindu with assistance and still be homebound) Yes Home with Home Health Care (HHC) Services: If YES to questions 2-5, consider discharge with home health, If NO proceed to next section 2.Does the patient require assistance with ADL, ambulation or transfer is there a home visit field care manager or assistance in home? Yes 3.Does the patient ambulate in home with assisted device or supervision? Yes 4.Is the patient able to transfer with minimal supervision or caregiver assistance? Yes 5.Does the patient require one or more skilled care needs? Yes Correction Facility (SNF): If NO, to question 6, [...] Arthritis Asthma, mild persistent 04/06/2021 Atrial fibrillation ([facility]/HCC) s/p PVI/[facility] 10/2015 Bilateral leg pain Carotid disease, bilateral ([facility]/HCC) CHF (congestive heart failure) ([facility]/HCC) Claudication ([facility]/HCC) COPD (chronic obstructive pulmonary disease) ([facility]) Coronary artery disease Diabetes mellitus, type II ([facility]/HCC) Edema 04/19/2018 2+ pitting History of blood transfusion Hyperlipidemia Hypertension LV dysfunction Osteoarthritis PAD (peripheral artery disease) ([facility]) Pneumonia Restless leg syndrome S/P aortic valve replacement with bioprosthetic valve 2013 SOB (shortness of breath) Stroke ([facility]) Varicose veins of bilateral lower extremities [...] Drug interactions: Potential to increase INR: Sertraline (WHEEL CUTTER), Ropinirole, Allopurinol (WHEEL CUTTER), getting regular APAP with norco usage Potential [...] per Dr. Bill RICARDO, PharmD Phone number: [phone] 02/08/2023 9:48 AM * Kyra Heaton NP - 02/08/2023 9:04 AM CDT Images from the original note were not included. TRAUMA PROGRESS NOTE ACUTE CARE SURGERY SERVICE Kyra Heaton NP, 02/08/2023, 9:04 AM [facility] ACUTE CARE SURGERY SERVICE: EMERGENCY SURGERY, TRAUMA, SURGICAL CRITICAL CARE [address] [place] [phone] TO CONTACT PROVIDERS: Trauma Surgeon/Critical Care Construction Trades Teacher MD: [id number] Emergency Surgery MD: [id number] Advanced Practice Provider - Trauma: [id number] Advanced Practice Provider - Emergency Surgery [id number] Name: Obie Sims Date of : 1955 [...] No results found for: PH, PCO2, PO2, [id number], BICARBWB, BASEDEFICIT, BASEEXCESS No results for input(s): [...] SERVICE ALYSSA BUCIO PA-C, 02/07/2023, 7:42 PM [facility] ACUTE CARE SURGERY SERVICE: EMERGENCY SURGERY, TRAUMA, SURGICAL CRITICAL CARE [address] [place] [address] TO CONTACT PROVIDERS: Critical Care Construction Trades Teacher/Trauma Surgeon MD: [id number] Emergency Surgery MD: [id number] Advanced Practice Provider - Trauma: [id number] Advanced Practice Provider - Emergency Surgery [id number] Name: Obie Sims Date of : 1955 [...] SERVICE ANGELES BAUTISTAEL , 02/07/2023, 2:20 PM [facility] ACUTE CARE SURGERY SERVICE: EMERGENCY SURGERY, TRAUMA, SURGICAL CRITICAL CARE [address] [place] [address] TO CONTACT PROVIDERS: Trauma Surgeon/Critical Care Construction Trades Teacher MD: [id number] Emergency Surgery MD: [id number] Advanced Practice Provider - Trauma: [id number] Advanced Practice Provider - Emergency Surgery [id number] Name: Obie Sims Date of : 1955 [...] No results found for: PH, PCO2, PO2, [id number], BICARBWB, BASEDEFICIT, BASEEXCESS No results for input(s): [...] chronic heart failure, unspecified heart failure type ([facility]) Anxiety Aortic valve stenosis Arthritis Asthma, mild persistent 04/06/2021 Atrial fibrillation ([facility]) s/p PVI/[facility] 10/2015 Bilateral leg pain Carotid disease, bilateral ([facility]) CHF (congestive heart failure) ([facility]) Claudication ([facility]) COPD (chronic obstructive pulmonary disease) ([facility]) Coronary artery disease Diabetes mellitus, type II ([facility]) Edema 04/19/2018 2+ pitting History of blood transfusion Hyperlipidemia Hypertension LV dysfunction Osteoarthritis PAD (peripheral artery disease) ([facility]) Pneumonia Restless leg syndrome S/P aortic valve replacement with bioprosthetic valve 2013 SOB (shortness of breath) Stroke ([facility]) Varicose veins of bilateral lower extremities [...] Drug interactions: Potential to increase INR: Sertraline (WHEEL CUTTER) Allopurinol (WHEEL CUTTER) Potential to decrease INR: N/A Potential to [...] per Dr. Bill [place], PharmD Phone number: [phone] 02/07/2023 9:24 AM * Theresa Berumen, OT - 02/07/2023 8:23 AM CDTSummary: OT evaluation OT Initial Evaluation Discharge Recommendation: Swing bed unit DME equipment recommendation: Activity Recommendation for shift supervisor melting: up with assist of 1 with a [...] Pt will complete lower dressing with Modified [place] sitting EOB or in chair to increase safety and independence with ADLs. Pt will complete all grooming and self-feeding with Modified [place] to increased safety and independence with ADLs. Pt will complete ADLs at sink with Modified [place] to increase independence with ADLs. Pt will complete toileting hygiene and clothing management with Modified [place] to increase safety and independence with ADLs. Pt to complete upper body bathing with SBA seated in chair/EOB to increase independence with ADLs. Pt to complete lower body bathing with Minimal assistance seated in chair/EOB to increase independence with ADLs. Pt will complete bed mobility with Modified [place] with HOB flat to increase safety and independence with functional transfers. Pt will complete transfers all surfaces to/from all surfaces with Modified [place] using wheeled walker to increase functional mobility [...] standing at sink/dressing completing ADLs with Modified [place] with wheeled walker for 5-10 minutes to increase safety and independence with ADLs and functional transfers. Education: Primary Learners Name: Obie Sims Primary Language of learner: Danish Patient was educated on transfers ADLs balance [...] Recommendation: Swing bed unit Activity Recommendation for shift supervisor melting: Transfer with 1, 2wRENETTA pena 02/07/23 0600 [...] balance for less than 5 minutes with Dorado to improve independence. Pt. will be able to maintain dynamic sitting balance on soft surface with Modified [place] to improve functional mobility. Pt. will be [...] Name: Obie Sims Primary Language of learner: Danish Patient was educated on precautions exercises transfers [...] Arthritis Asthma, mild persistent 04/06/2021 Atrial fibrillation ([facility]CC) s/p PVI/[facility] 10/2015 Bilateral leg pain Carotid [...] Drug interactions: Potential to increase INR: Sertraline (WHEEL CUTTER) Allopurinol (WHEEL CUTTER) Potential to decrease INR: N/A Potential to [...] per Dr. Bill ARENAS, PharmD Phone number: [phone] 02/06/2023 7:56 PM * Veronique Oropeza RN [...] SERVICE ALYSSA BUCIO PA-C, 02/06/2023, 5:13 AM [facility] ACUTE CARE SURGERY SERVICE: EMERGENCY SURGERY, TRAUMA, SURGICAL CRITICAL CARE [address] [place], [place] [phone] TO CONTACT PROVIDERS: Critical Care Construction Trades Teacher/Trauma Surgeon MD: [id number] Emergency Surgery MD: [id number] Advanced Practice Provider - Trauma: [id number] Advanced Practice Provider - Emergency Surgery [id number] Name: Obie Sims Date of : 1955 [...] disease, bilateral (CMS/HCC) CHF (congestive heart failure) ([facility]CC) Claudication ([facility]CC) COPD (chronic obstructive pulmonary disease) ([facility]CC) Coronary artery disease Diabetes mellitus, type II ([facility]CC) Edema 04/19/2018 2+ pitting History of blood transfusion Hyperlipidemia Hypertension LV dysfunction Osteoarthritis PAD (peripheral artery disease) (CMS/HCC) Pneumonia Restless leg syndrome S/P aortic valve replacement with bioprosthetic valve 2013 1999, 2013 SOB (shortness of breath) Stroke ([facility]) Varicose veins of bilateral lower extremities [...] No results found for: PH, PCO2, PO2, [id number], BICARBWB, BASEDEFICIT, BASEEXCESS No results for input(s): [...] chronic heart failure, unspecified heart failure type ([facility]) Anxiety Aortic valve stenosis Arthritis Asthma, mild persistent 04/06/2021 Atrial fibrillation ([facility]CC) s/p PVI/[facility] 10/2015 Bilateral leg pain Carotid disease, bilateral ([facility]CC) CHF (congestive heart failure) ([facility]) Claudication ([facility]HCC) COPD (chronic obstructive pulmonary disease) ([facility]) Coronary artery disease Diabetes mellitus, type II ([facility]) Edema 04/19/2018 2+ pitting History of blood transfusion Hyperlipidemia Hypertension LV dysfunction Osteoarthritis PAD (peripheral artery disease) ([facility]) Pneumonia Restless leg syndrome S/P aortic valve replacement with bioprosthetic valve 2013 SOB (shortness of breath) Stroke ([facility]CC) Varicose veins of bilateral lower extremities with [...] Imaging: ECG 12 lead Result Date: 02/07/2023 [facility] [address] [place] [address] Test Date: 2023-02-06 Pat Name: OBIE SIMS Department: 1 Room: [employer] Gender: Male [employer]: Ti : 1955 Requested By: ALYSSA BUCIO Order Number: [id number] Reading MD: Brit Gonzáles Measurements Intervals [place] Rate: 87 P: -80 [place]: 262 QRS: -37 QRSD: 150 T: 136 QT: 406 QTc: 489 Interpretive Statements SINUS RHYTHM WITH FIRST DEGREE AV BLOCK LEFT AXIS DEVIATION LEFT BUNDLE BRANCH BLOCK ECG 12 lead Result Date: 02/06/2023 [facility] Test Date: 2023-02-06 Pat Name[facility] Department: 70 Room: EXAMN Gender: Male Dem[employer]: : 1955 Requested By: AMAURI HAMMOND Order Number: [id number] Reading MD: Brit Gonzáles Measurements Intervals [place] Rate: 89 P: [place]: 0 QRS: -34 QRSD: 137 T: 138 QT: 384 QTc: 469 Interpretive Statements UNCERTAIN REGULAR RHYTHM LEFT AXIS DEVIATION [QRS AXIS < -30] INTRAVENTRICULAR CONDUCTION DELAY [130+ ms QRS DURATION] POSSIBLE ANTERIOR MYOCARDIAL INFARCTION , PROBABLY OLD [30 ms Q WAVE IN V3/V4, OR R < 0.2 mV IN V4] ECG 12 lead Result Date: 01/27/[address] [place] [address] Test Date: 2023-01-26 Pat Name: DANIELLA Department: 3 Room: EXAM 707 Gender: Male [employer]: : [id number] By: URI BLAIR Order Number: [id number] Reading MD: Sharon Willis Measurements Intervals [place] Rate: 99 P: -10 [place]: 232 QRS: -18 QRSD: 137 T: 123 [...] AM CDTAssociated Order(s): IP CONSULT TO HOSPITALIST [facility] Hospitalist Consult Note Attending Provider: Alison [...] History: Diagnosis Date Abnormal ankle brachial index (STLELA) Acute on chronic heart failure, unspecified heart failure type (CMS/[facility]) Anxiety Aortic valve stenosis Arthritis Asthma, mild persistent 04/06/2021 Atrial fibrillation ([facility]) s/p PVI/[facility] 10/2015 Bilateral leg pain Carotid disease, bilateral ([facility]) CHF (congestive heart failure) ([facility]) Claudication ([facility]) COPD (chronic obstructive pulmonary disease) ([facility]) Coronary artery disease Diabetes mellitus, type II ([facility]) Edema 04/19/2018 2+ pitting History of blood transfusion Hyperlipidemia Hypertension LV dysfunction Osteoarthritis PAD (peripheral artery disease) ([facility]) Pneumonia Restless leg syndrome S/P aortic valve replacement with bioprosthetic valve 2013 SOB (shortness of breath) Stroke ([facility]) Varicose veins of bilateral lower extremities [...] Torre RN - 02/06/2023 6:17 AM CDT [phone] (daughter) [phone] yannick (daughter) * Amauri Hammond MD - [...] chronic heart failure, unspecified heart failure type ([facility]) Anxiety Aortic valve stenosis Arthritis Asthma, mild persistent 04/06/2021 Atrial fibrillation ([facility]) s/p PVI/[facility] 10/2015 Bilateral leg pain Carotid disease, bilateral ([facility]) CHF (congestive heart failure) ([facility]) Claudication ([facility]) COPD (chronic obstructive pulmonary disease) ([facility]) Coronary artery disease Diabetes mellitus, type II ([facility]) Edema 04/19/2018 2+ pitting History of blood transfusion Hyperlipidemia Hypertension LV dysfunction Osteoarthritis PAD (peripheral artery disease) ([facility]) Pneumonia Restless leg syndrome S/P aortic valve replacement with bioprosthetic valve 2013 1999, 2013 SOB (shortness of breath) Stroke ([facility]) Varicose veins of bilateral lower extremities [...] Department: 70 Room: EXAM N Gender: Male [employer]: : 1955 Requested By: AMAURI HAMMOND Order Number: [id number] Reading MD: Brit Gonzáles Measurements Intervals [place] Rate: 89 P: [place]: 0 QRS: -34 QRSD: 137 T: 138 [...] HIP ELZA 2V+PELVIS Final Result by User, [id number] (02/06 0336) Date: 02/06/2023 3:24 AM Exam: [...] HEAD WO CON Final Result by User, [id number] (02/06 315) Date: 02/06/2023 3:05 AM Exam: [...] SPINE WO CON Final Result by User, [email or web address] (02/06 318) Date: 02/06/2023. Exam: CT cervical [...] CHEST+ABD+PEL WO CON Final Result by User, [id number] (02/06 0338) Indication: Trip and fall, hit head, lying [...] st Contact Info) Description 09/25/2024 2:00 PM LUMP RECEIVER Appointment [facility] [address] [place] [address] Zayra Powell, [facility] [address] [place] [address] 10/16/2024 3:30 PM LUMP RECEIVER Office Visit [facility] [address] [phone] Brit Gonzáles MD [address] [place] [address] documented as of this encounter Goals Goal [...] - 18.0 G/DL 02/09/2023 12:37 PM CDT [facility] HCT 31.8(L) 37.0 - 52.0 % 02/09/2023 12:37 PM CDT [facility] 02/09/2023 12:2 7 PM CDT Maximiliano REBOLLEDO LABORATORY Final Result Performing Organization Address [facility] de Phone Number [facility] [address] [place] [address], [id number] * (ABNORMAL) POCT glucose (02/09/2023 11:45 AM CDT) GLUCOSE POC 156(H) 70 - 109 02/09/2023 11:54 AM CDT [facility] 02/09/2023 11:4 5 AM CDT Angeles Carney DO POCT ORDERABLES - DEVICE Final R esult Performing Organization Address City/[facility] Co de Phone Number [facility] [address] [place] [address], [id number] * (ABNORMAL) POCT glucose (02/09/2023 6:33 AM CDT) GLUCOSE POC 167(H) 70 - 109 02/09/2023 6:38 AM CDT [facility] 02/09/2023 6:33 AM CDT us Angeles Carney DO POCT ORDERABLES - DEVICE Final R esult Performing Organization Address [facility] de Phone Number [facility] [address] [place] [address], [phone] * (ABNORMAL) PROTIME/INR, VENOUS (PROTHROMBIN TIME) (02/09/2023 2:58 AM CDT) PROTIME 26.7(H) 9.4 - 12.5 SEC 02/09/2023 3:32 AM CDT [facility] INR 2.3(H) 0.8 - 1.1 02/09/2023 3:32 AM CDT [facility] 02/09/2023 2:58 AM CDT Bill Mills MD LABORATORY Final Resul t Performing Organization Address [facility] de Phone Number [facility] [address] [place] [address], [phone] * (ABNORMAL) BASIC METABOLIC PANEL (02/09/2023 2:58 AM CDT) SODIUM S/P/B 131(L) 136 - 145 MMOL/L 02/09/2023 3:50 AM CDT [facility] POTASSIUM S/P/B 3.7 3.5 - 5.1 MMOL/L 02/09/2023 3:50 AM CDT [facility] CHLORIDE S/P/B 92(L) 98 - 107 MMOL/L 02/09/2023 3:50 AM CDT [facility] CO2 31.1 21.0 - 32.0 MMOL/L 02/09/2023 3:50 AM T [facility] GLUCOSE 228(H) 74 - 106 MG/DL 02/09/2023 3:50 AM T [facility] BUN 54(H) 7 - 18 MG/DL 02/09/2023 3:50 AM T [facility] CREATININE S/P/B 2.27(H) 0.70 - 1.30 MG/DL 02/09/2023 3:50 AM T [facility] CALCIUM S/P/B 9.6 8.5 - 10.1 MG/DL 02/09/2023 3:50 AM T [facility] ANION GAP 7.9 5.0 - 15.0 MMOL/L 02/09/2023 3:[address] [facility] OSMOLALITY (CALC) 294 MOSM/KG 023 3:[address] [facility] Comment:REFERENCE RANGE NOT ESTABLISHED GFR ESTIMATE 31(L) >90 ML/MIN/1. 73 M2 02/09/2023 3:50 AM T [facility] GFR NOTES GFR REFERENCE S: 02/09/2023 3:[address] [facility] Comment: THE ESTIMATED GFR [...] LABORATORY Final Resul t Performing Organization Address City/[facility]/ZIP Co de Phone Number [facility] [address] [place] [address], [place] [phone] * (ABNORMAL) Blood gas, venous (02/09/2023 2:58 AM CDT) PH VENOUS 7.39 7.32 - 7.42 02/09/2023 3:12 AM CDT [facility] PCO2 VENOUS 53.9(H) 41.0 - 51.0 MMHG 02/09/2023 3:12 AM CDT [facility] PO2 VENOUS 34.9 25.0 - 40.0 MM HG 02/09/2023 3:12 AM CDT [facility] BICARB VENOUS 32.2(H) 24 - 28 MMOL/L 02/09/2023 3:12 AM CDT [facility] TOTAL CO2 VENOUS 33.9(H) 25.0 - 29.0 MMOL/L 02/09/2023 3:12 AM CDT [facility] BASE EXCESS VENOUS 6.8(H) 0 - 2 MMOL/L 02/09/2023 3:12 AM CDT [facility] O2 SAT VENOUS 62 <75 % 02/09/2023 3:12 AM CDT [facility] 02/09/2023 2:58 AM CDT Jamie Hilliard MD LABORATORY Final Resul t [facility] [address] [place] [address], [place] [phone] * (ABNORMAL) POCT glucose (02/08/2023 9:34 PM CDT) GLUCOSE POC 134(H) 70 - 109 02/08/2023 9:38 PM CDT [facility] 02/08/2023 9:34 PM CDT us Ashis Carney DO POCT ORDERABLES - DEVICE Final R esult Performing Organization Address [facility] de Phone Number [facility] [address] [place] [address], [place] [phone] * (ABNORMAL) POCT glucose (02/08/2023 4:02 PM CDT) GLUCOSE POC 294(H) 70 - 109 02/08/2023 4:45 PM CDT [facility] 02/08/2023 4:02 PM CDT us Reynoso Carney DO POCT ORDERABLES - DEVICE Final R esult Performing Organization Address [facility] Co de Phone Number [facility] [address] [place] [address], [place] [phone] * (ABNORMAL) POCT glucose (02/08/2023 11:57 AM CDT) GLUCOSE POC 188(H) 70 - 109 02/08/2023 11:59 AM CDT [facility] 02/08/2023 11:5 7 AM CDT us Venkateshis Carney DO POCT ORDERABLES - DEVICE Final R esult Performing Organization Address [facility] Co de Phone Number [facility] [address] [place] [address], [place] [phone] * PHOSPHORUS, INORGANIC PHOSPHATE (02/08/2023 8:13 AM CDT) PHOSPHORUS 3.8 2.5 - 4.9 MG/DL 02/08/2023 8:45 AM CDT [facility] 02/08/2023 8:13 AM CDT us Jamie Hilliard MD LABORATORY Final Resul t Performing Organization Address [facility] de Phone Number [facility] [address] [place] [address], [place] [phone] * MAGNESIUM (02/08/2023 8:13 AM CDT) MAGNESIUM 2.1 1.6 - 2.6 MG/DL 02/08/2023 8:45 AM CDT [facility] 02/08/2023 8:13 AM CDT us Jamie Hilliard MD LABORATORY Final Resul t Performing Organization Address [facility] de Phone Number [facility] [address] [place] [address], [place] [phone] * (ABNORMAL) BASIC METABOLIC PANEL (02/08/2023 8:13 AM CDT) SODIUM S/P/B 133(L) 136 - 145 MMOL/L 02/08/2023 8:45 AM CDT [facility] POTASSIUM S/P/B 3.8 3.5 - 5.1 MMOL/L 02/08/2023 8:45 AM CDT [facility] CHLORIDE S/P/B 98 98 - 107 MMOL/L 02/08/2023 8:45 AM CDT [facility] CO2 31.8 21.0 - 32.0 MMOL/L 02/08/2023 8:45 AM CDT [facility] GLUCOSE 161(H) 74 - 106 MG/DL 02/08/2023 8:45 AM CDT [facility] BUN 55(H) 7 - 18 MG/DL 02/08/2023 8:45 AM CDT [facility] CREATININE S/P/B 2.53(H) 0.70 - 1.30 MG/DL 02/08/2023 8:45 AM CDT [facility] CALCIUM S/P/B 9.3 8.5 - 10.1 MG/DL 02/08/2023 8:45 AM CDT [facility] ANION GAP 3.2(L) 5.0 - 15.0 MMOL/L 02/08/2023 8:45 AM CDT [facility] OSMOLALITY (CALC) 295 MOSM/KG 023 8:45 AM CDT [facility] Comment:REFERENCE RANGE NOT ESTABLISHED GFR ESTIMATE 27(L) >90 ML/MIN/1. 73 M2 02/08/2023 8:45 AM CDT [facility] GFR NOTES GFR REFERENCE S: 02/08/2023 8:45 AM CDT [facility] Comment: THE ESTIMATED GFR [...] Jamie Hilliard MD LABORATORY Final Resul t [facility] [address] [place] [address], [phone] * (ABNORMAL) CBC W/DIFF AUTOMATED (02/08/2023 8:13 AM CDT) WBC 9.65 4.00 - 10.80 x10'3/uL 02/08/2023 8:23 AM CDT [facility] RBC 3.65(L) 4.50 - 6.10 x10'6/uL 02/08/2023 8:23 AM CDT [facility] HGB 8.6(L) 13.0 - 18.0 G/DL 02/08/2023 8:23 AM CDT [facility] HCT 28.9(L) 37.0 - 52.0 % 02/08/2023 8:23 AM CDT [facility] MCV 79.2 78.0 - 100.0 FL 02/08/2023 8:23 AM CDT [facility] MCH 23.6(L) 27.0 - 31.0 PG 02/08/2023 8:23 AM CDT [facility] MCHC 29.8(L) 33.0 - 36.0 G/DL 02/08/2023 8:23 AM CDT [facility] RDW 20.1(H) 11.5 - 14.5 % 02/08/2023 8:23 AM CDT [facility] PLT 183 150 - 350 x10'3/uL 02/08/2023 8:23 AM CDT [facility] MPV 10.1 7.4 - 10.4 FL 02/08/2023 8:23 AM CDT [facility] ABS. NEUTROPHILS 6.96 1.60 - 8.30 x10'3/uL 02/08/2023 8:23 AM CDT [facility] ABS. LYMPHOCYTES 1.25 0.80 - 4.70 x10'3/uL 02/08/2023 8:23 AM CDT [facility] ABS. MONOCYTES 1.05 0.00 - 1.50 x10'3/uL 02/08/2023 8:23 AM CDT [facility] ABS. EOSINOPHILS 0.31 0.00 - 0.40 x10'3/uL 02/08/2023 8:23 AM CDT [facility] ABS. BASOPHILS 0.05 0.00 - 0.20 x10'3/uL 02/08/2023 8:23 AM CDT [facility] ABS. IMMATURE GRANULOCYTES 0.03 0.00 - 0.03 x10'3/uL 02/08/2023 8:23 AM CDT [facility] ABS. NUCLEATED RBC'S 0.00 0.0 x10'3/uL 02/08/2023 8:23 AM CDT [facility] 02/08/2023 8:13 AM CDT Jamie Hilliard MD LABORATORY Final Resul t Performing Organization Address [facility] de Phone Number [facility] [address] [place] [address], [phone] * (ABNORMAL) POCT glucose (02/08/2023 6:06 AM CDT) GLUCOSE POC 158(H) 70 - 109 02/08/2023 6:10 AM CDT [facility] 02/08/2023 6:06 AM CDT Bill Mills MD POCT ORDERABLES - DEVICE Fi nal Result Performing Organization Address [facility] de Phone Number [facility] [address] [place] [address], [id number] * (ABNORMAL) HEMOGLOBIN, GLYCOSYLATED (02/08/2023 5:52 AM CDT) HGB A1C 7.8(H) <5.7 % 02/08/2023 6:46 AM CDT [facility] ESTIMATED AVG GLUCOSE 177(H) 74 - 114 MG/DL 02/08/2023 6:46 AM CDT [facility] 02/08/2023 5:52 AM CDT us Alison Balderas MD LABORATORY Final Result Performing Organization Address [facility] Co de Phone Number [facility] [address] [place] [address], [phone] * (ABNORMAL) PROTIME/INR, VENOUS (PROTHROMBIN TIME) (02/08/2023 1:52 AM CDT) PROTIME 27.1(H) 9.4 - 12.5 SEC 02/08/2023 2:18 AM CDT [facility] INR 2.4(H) 0.8 - 1.1 02/08/2023 2:18 AM CDT [facility] 02/08/2023 1:52 AM CDT us Bill Mills MD LABORATORY Final Resul t Performing Organization Address [facility] de Phone Number [facility] [address] [place] [address], [phone] * (ABNORMAL) POCT glucose (02/08/2023 1:04 AM CDT) GLUCOSE POC 251(H) 70 - 109 02/08/2023 1:05 AM CDT [facility] 02/08/2023 1:04 AM CDT us Bill Mills MD POCT ORDERABLES - DEVICE Fi nal Result Performing Organization Address [facility] Co de Phone Number [facility] [address] [place] [address], [place] [phone] * (ABNORMAL) POCT glucose (02/08/2023 12:17 AM CDT) GLUCOSE POC 318(H) 70 - 109 02/08/2023 12:21 AM CDT [facility] 02/08/2023 12:1 7 AM CDT us Bill Mills MD POCT ORDERABLES - DEVICE Fi nal Result Performing Organization Address [facility] Co de Phone Number [facility] [address] [place] [address], [phone] * (ABNORMAL) POCT glucose (02/07/2023 10:44 PM CDT) GLUCOSE POC 384(H) 70 - 109 02/07/2023 10:52 PM CDT [facility] 02/07/2023 10:4 4 PM CDT us Bill Mills MD POCT ORDERABLES - DEVICE Fi nal Result Performing Organization Address [facility] Co de Phone Number [facility] [address] [place] [address], [place] [phone] * (ABNORMAL) POCT glucose (02/07/2023 10:10 PM CDT) GLUCOSE POC 406(H) 70 - 109 02/07/2023 10:51 PM CDT [facility] 02/07/2023 10:1 0 PM CDT us Bill Mills MD POCT ORDERABLES - DEVICE Fi nal Result Performing Organization Address [facility] Co de Phone Number [facility] [address] [place] [address], [phone] * (ABNORMAL) HEMOGLOBIN AND HEMATOCRIT (02/07/2023 8:37 PM CDT) HGB 8.7(L) 13.0 - 18.0 G/DL 02/07/2023 8:45 PM CDT [facility] HCT 29.3(L) 37.0 - 52.0 % 02/07/2023 8:45 PM CDT [facility] 02/07/2023 8:37 PM CDT Alyssa Bucio PA-C LABORATORY Final Resul t Performing Organization Address City/[facility]/ZIP Co de Phone Number [facility] [address] [place] [address], [place] [phone] * (ABNORMAL) POCT glucose (02/07/2023 4:57 PM CDT) GLUCOSE POC 175(H) 70 - 109 02/07/2023 5:00 PM CDT [facility] 02/07/2023 4:57 PM CDT Bill Mills MD POCT ORDERABLES - DEVICE Fi nal Result Performing Organization Address [facility] Co de Phone Number [facility] [address] [place] [address], [place] [phone] * TRANSFUSE RED BLOOD CELLS (02/07/2023 2:50 PM CDT) Angeles Carney DO NURSING TREATMENT ORDERABLES - B LOOD ADMIN Final Result * (ABNORMAL) HEMOGLOBIN AND HEMATOCRIT (02/07/2023 2:33 PM CDT) HGB 8.6(L) 13.0 - 18.0 G/DL 02/07/2023 2:49 PM CDT [facility] HCT 29.3(L) 37.0 - 52.0 % 02/07/2023 2:49 PM CDT [facility] 02/07/2023 2:33 PM CDT Alyssa Bucio PA-C LABORATORY Final Resul t Performing Organization Address [facility] Co de Phone Number [facility] [address] [place] [address], [place] [phone] * (ABNORMAL) POCT glucose (02/07/2023 11:44 AM CDT) GLUCOSE POC 219(H) 70 - 109 02/07/2023 12:12 PM CDT [facility] 02/07/2023 11:4 4 AM CDT Bill Mills MD POCT ORDERABLES - DEVICE Fi nal Result Performing Organization Address [facility] Co de Phone Number [facility] [address] [place] [address], [place] [phone] * XR CHEST PORTABLE (02/07/2023 7:33 AM [...] 70 - 109 02/07/2023 6:56 AM CDT [facility] 02/07/2023 6:44 AM CDT Bill Mills MD POCT ORDERABLES - DEVICE Fi nal Result [facility] [address] [place] [address], [phone] * RBC MORPHOLOGY (02/07/2023 5:38 AM CDT) RBC MORPHOLOGY BASOPHILIC STIPPLING 02/07/2023 7:01 AM CDT [facility] Comment: HYPOCHROMASIA MODERATE MICROCYTOSIS SLIGHT ANISOCYTOSIS MODERATE POLYCHROMASIA SLIGHT POIKILOCYTOSIS MODERATE OVALOCYTES TARGET CELLS ACANTHOCYTES ASHISH CELLS 02/07/2023 5:38 AM CDT us Alyssa Bucio PA-C LABORATORY Final Resul t Performing Organization Address [facility] de Phone Number [facility] [address] [place] [address], [phone] * (ABNORMAL) PROTIME/INR, VENOUS (PROTHROMBIN TIME) (02/07/2023 5:38 AM CDT) PROTIME 27.8(H) 9.4 - 12.5 SEC 02/07/2023 6:20 AM CDT [facility] INR 2.4(H) 0.8 - 1.1 02/07/2023 6:20 AM CDT [facility] 02/07/2023 5:38 AM CDT Bill Mills MD LABORATORY Final Resul t Performing Organization Address [facility] de Phone Number [facility] [address] [place] [address], [phone] * PHOSPHORUS, INORGANIC PHOSPHATE (02/07/2023 5:38 AM CDT) PHOSPHORUS 3.8 2.5 - 4.9 MG/DL 02/07/2023 6:32 AM CDT [facility] 02/07/2023 5:38 AM CDT Alyssa Bucio PA-C LABORATORY Final Resul t Performing Organization Address [facility] de Phone Number [facility] [address] [place] [address], [phone] * MAGNESIUM (02/07/2023 5:38 AM CDT) MAGNESIUM 2.4 1.6 - 2.6 MG/DL 02/07/2023 6:32 AM CDT [facility] 02/07/2023 5:38 AM CDT us Alysas Bucio PA-C LABORATORY Final Resul t [facility] [address] [place] [address], [place] [phone] * (ABNORMAL) BASIC METABOLIC PANEL (02/07/2023 5:38 AM CDT) Pathologist [facility] SODIUM S/P/B 138 136 - 145 MMOL/L 02/07/2023 6:32 AM CDT [facility] POTASSIUM S/P/B 4.2 3.5 - 5.1 MMOL/L 02/07/2023 6:32 AM CDT [facility] CHLORIDE S/P/B 106 98 - 107 MMOL/L 02/07/2023 6:32 AM CDT [facility] CO2 27.1 21.0 - 32.0 MMOL/L 02/07/2023 6:32 AM CDT [facility] GLUCOSE 84 74 - 106 MG/DL 02/07/2023 6:32 AM CDT [facility] BUN 56(H) 7 - 18 MG/DL 02/07/2023 6:32 AM CDT [facility] CREATININE S/P/B 2.08(H) 0.70 - 1.30 MG/DL 02/07/2023 6:32 AM CDT [facility] CALCIUM S/P/B 9.1 8.5 - 10.1 MG/DL 02/07/2023 6:32 AM CDT [facility] ANION GAP 4.9(L) 5.0 - 15.0 MMOL/L 02/07/2023 6:32 AM CDT [facility] OSMOLALITY (CALC) 301 MOSM/KG 023 6:32 AM CDT [facility] Comment:REFERENCE RANGE NOT ESTABLISHED GFR ESTIMATE 34(L) >90 ML/MIN/1. 73 M2 02/07/2023 6:32 AM CDT [facility] GFR NOTES GFR REFERENCE S: 02/07/2023 6:32 AM CDT [facility] Comment: THE ESTIMATED GFR [...] Alyssa Bucio PA-C LABORATORY Final Resul t [facility] [address] [place] [address], [id number] * (ABNORMAL) CBC W/DIFF AUTOMATED (02/07/2023 5:38 AM CDT) WBC 7.55 4.00 - 10.80 x10'3/uL 02/07/2023 6:46 AM CDT [facility] RBC 3.04(L) 4.50 - 6.10 x10'6/uL 02/07/2023 6:46 AM CDT [facility] HGB 6.8(LL) 13.0 - 18.0 G/DL 02/07/2023 6:46 AM CDT [facility] Comment: CRITICAL RESULT, SPECIMEN DATE, TIME WERE READ BACK BY YUNI JIMENES ON 02.07.23@0646. HCT 24.2(L) 37.0 - 52.0 % 02/07/2023 6:46 AM CDT [facility] MCV 79.6 78.0 - 100.0 FL 02/07/2023 6:46 AM CDT [facility] MCH 22.4(L) 27.0 - 31.0 PG 02/07/2023 6:46 AM CDT [facility] MCHC 28.1(L) 33.0 - 36.0 G/DL 02/07/2023 6:46 AM CDT [facility] RDW 19.9(H) 11.5 - 14.5 % 02/07/2023 6:46 AM CDT [facility] PLT 158 150 - 350 x10'3/uL 02/07/2023 6:46 AM CDT [facility] MPV 10.2 7.4 - 10.4 FL 02/07/2023 6:46 AM CDT [facility] ABS. NEUTROPHILS 5.01 1.60 - 8.30 x10'3/uL 02/07/2023 6:46 AM CDT [facility] ABS. LYMPHOCYTES 1.22 0.80 - 4.70 x10'3/uL 02/07/2023 6:46 AM CDT [facility] ABS. MONOCYTES 0.98 0.00 - 1.50 x10'3/uL 02/07/2023 6:46 AM CDT [facility] ABS. EOSINOPHILS 0.28 0.00 - 0.40 x10'3/uL 02/07/2023 6:46 AM CDT [facility] ABS. BASOPHILS 0.04 0.00 - 0.20 x10'3/uL 02/07/2023 6:46 AM CDT [facility] ABS. IMMATURE GRANULOCYTES 0.02 0.00 - 0.03 x10'3/uL 02/07/2023 6:46 AM CDT [facility] ABS. NUCLEATED RBC'S 0.00 0.0 x10'3/uL 02/07/2023 6:46 AM CDT [facility] 02/07/2023 5:38 AM CDT Alyssa Bucio PA-C LABORATORY Final Resul t Performing Organization Address [facility] de Phone Number [facility] [address] [place] [address], [phone] * (ABNORMAL) HEMOGLOBIN AND HEMATOCRIT (02/06/2023 11:51 PM CDT) [facility] Signature HGB 7.3(L) 13.0 - 18.0 G/DL 02/06/2023 11:58 PM CDT [facility] HCT 24.9(L) 37.0 - 52.0 % 02/06/2023 11:58 PM CDT [facility] 02/06/2023 11:5 1 PM CDT Alyssa Bucio PA-C LABORATORY Final Resul t Performing Organization Address [facility] de Phone Number [facility] [address] [place] [address], [phone] * ECG 12 lead (02/06/2023 9:37 PM CDT) 02/06/2023 9:37 PM CDT Narrative [facility] - 02/07/2023 6:21 AM CDT ? [facility] ?[address], [place] ??[address] ? Test Date: ?2023-02-06 Pat Name: ? OBIE SIMS ?Department: ?? 1 ? Room: ? 854BB Gender: ? Male ? [employer]: ?? Sc : ?1955 ? Requested By: ALYSSA BUCIO Order Number: [id number] ? Reading MD: ?? Brit Gonzáles ? Measurements Intervals ?[place] ? Rate: ? 87 ? P: ?-80 [place]: ? 262 ?QRS: ?-37 QRSD: ? 150 ?T: ?136 QT: ? 406 ? QTc: ?489 ? Interpretive Statements SINUS RHYTHM WITH FIRST DEGREE AV BLOCK LEFT AXIS DEVIATION LEFT BUNDLE BRANCH BLOCK Procedure Note Brit Gonzáles MD - 02/07/2023 [facility] [address] [place] [address] Test Date: 2023-02-06 Pat Name: OBIE SIMS Department: 1 Room: 85B Gender: Male [employer]: Ti : 1955 Requested By: ALYSSA BUCIO Order Number: [id number] Reading MD: Brit Gonzáles Measurements Intervals [place] Rate: 87 P: -80 [place]: 262 QRS: -37 QRSD: 150 T: 136 QT: 406 QTc: 489 Interpretive Statements SINUS RHYTHM WITH FIRST DEGREE AV BLOCK LEFT AXIS DEVIATION LEFT BUNDLE BRANCH BLOCK us Alyssa Bucio PA-C ECG ORDERABLES Final Resul t [facility] * (ABNORMAL) HEPATIC FUNCTION PANEL (02/06/2023 8:42 PM CDT) BILIRUBIN TOTAL S/P/B 1.2(H) 0.2 - 1.0 MG/DL 02/06/2023 9:13 PM CDT [facility] BILIRUBIN DIRECT S/P/B 0.5(H) 0.0 - 0.2 MG/DL 02/06/2023 9:13 PM CDT [facility] ALKALINE PHOSPHATASE S/P/B 130(H) 45 - 115 U/L 02/06/2023 9:13 PM CDT [facility] AST 23 15 - 37 U/L 02/06/2023 9:13 PM CDT [facility] ALT 19 16 - 61 U/L 02/06/2023 9:13 PM CDT [facility] TOTAL PROTEIN S/P/B 7.5 6.4 - 8.2 G/DL 02/06/2023 9:13 PM CDT [facility] ALBUMIN S/P/B 3.0(L) 3.4 - 5.0 G/DL 02/06/2023 9:13 PM CDT [facility] 02/06/2023 8:42 PM CDT us Bill Mills MD LABORATORY Final Resul t Performing Organization Address [facility] Co de Phone Number [facility] [address] [place] [address], [place] [phone] * (ABNORMAL) POCT glucose (02/06/2023 8:19 PM CDT) GLUCOSE POC 155(H) 70 - 109 02/06/2023 8:59 PM CDT [facility] 02/06/2023 8:19 PM CDT us Bill Mills MD POCT ORDERABLES - DEVICE Fi nal Result Performing Organization Address [facility] de Phone Number [facility] [address] [place] [address], [place] [phone] [id number] * XR CHEST PORTABLE (02/06/2023 11:55 AM [...] - 18.0 G/DL 02/06/2023 10:57 AM CDT [facility] HCT 23.7(L) 37.0 - 52.0 % 02/06/2023 10:57 AM CDT [facility] 02/06/2023 10:3 6 AM CDT Alyssa Bucio PA-C LABORATORY Final Resul t [facility] [address] [place] [address], [id number] * MRI BRAIN WO CON (02/06/2023 7:13 [...] URINE CLEAN CATCH 02/06/2023 6:28 AM CDT [facility] SPECIAL REQUESTS NO SPECIAL REQUEST 02/06/2023 6:28 AM CDT [facility] CULTURE RESULT FEW CONTAMINANTS 01/21 1:38 PM CDT [facility] URINE SPECIMEN OBTAINED BY CLEAN CATCH PROCEDURE / Unknown 02/06/2023 6:28 AM CDT 02/06/2023 6:37 AM CDT Alyssa Bucio PA-C MICROBIOLOGY - GENERAL CLARISSA MCARTHUR Final Result [facility] [address] [place] [address], [place] [phone] * (ABNORMAL) URINALYSIS (02/06/2023 6:27 AM CDT) COLOR (U) LIGHT YELLOW 02/06/2023 7:07 AM CDT [facility] TRANSPARENCY CLEAR 02/06/2023 7:07 AM CDT [facility] SPECIFIC GRAVITY (U) 1.012 1.002 - 1.035 02/06/2023 7:07 AM CDT [facility] U PH 5.5 5 - 8 02/06/2023 7:07 AM CDT [facility] PROTEIN (U) NEGATIVE NEGATIVE 02/06/2023 7:07 AM CDT [facility] URINE GLUCOSE 500(A) NEGATIVE MG/DL 02/06/2023 7:07 AM CDT [facility] KETONES MG/DL (U) NEGATIVE NEGATIVE 02/06/2023 7:07 AM CDT [facility] BILIRUBIN (U) NEGATIVE NEGATIVE 02/06/2023 7:07 AM CDT [facility] BLOOD (U) NEGATIVE NEGATIVE 02/06/2023 7:07 AM CDT [facility] NITRITES NEGATIVE NEGATIVE 02/06/2023 7:07 AM CDT [facility] UROBILINOGEN NORMAL 0 - 1 EU/DL 02/06/2023 7:07 AM CDT [facility] LEUKOCYTES (U) NEGATIVE NEGATIVE 02/06/2023 7:07 AM CDT [facility] RBC/HPF <1 0 - 3 /HPF 02/06/2023 7:07 AM CDT [facility] WBC/HPF <1 0 - 6 /HPF 02/06/2023 7:07 AM CDT [facility] BACTERIA (U) NONE /HPF 02/06/2023 7:07 AM CDT [facility] URINE SPECIMEN OBTAINED BY CLEAN CATCH PROCEDURE / Unknown 02/06/2023 6:27 AM CDT Alyssa REBOLLEDO-C URINE ORDERABLES Final Resu lt Performing Organization Address [facility] de Phone Number [facility] [address] [place] [address], [phone] * (ABNORMAL) HEMOGLOBIN AND HEMATOCRIT (02/06/2023 5:52 AM CDT) HGB 7.3(L) 13.0 - 18.0 G/DL 02/06/2023 6:16 AM CDT [facility] HCT 24.9(L) 37.0 - 52.0 % 02/06/2023 6:16 AM CDT [facility] 02/06/2023 5:52 AM CDT Alyssa REBOLLEDO-C LABORATORY Final Resul t Performing Organization Address [facility] de Phone Number [facility] [address] [place] [address], [id number] * XR HIP ELZA 2V+PELVIS (02/06/2023 3:26 [...] Phill Currie MD, 02/06/2023 3:17 AM Amauri Hammodn MD CT Final Result * CT CERV [...] - 308 U/L 02/06/2023 3:38 AM CDT [facility] 02/06/2023 1:56 AM CDT us Amauri Hammond MD LABORATORY Final Result [facility] [address] [place] [address], [phone] * TYPE AND SCREEN (02/06/2023 1:56 AM CDT) UNITS ORDERED 6 02/09/2023 7:08 PM CDT [facility] ABO/RH A POSITIVE 02/06/2023 3:13 AM CDT [facility] ANTIBODY SCREEN NEGATIVE 3:13 AM CDT [facility] SAMPLE EXPIRATION 02/09/2023,2359 02/06/2023 2:14 AM CDT [facility] BB COMMENT PATIENT HAS PREVIOUS ANTIBODY HISTORY WITH CURRENT NEGATIVE SCREEN. COMPATIBLE BLOOD WILL TAKE EXTRA TIME TO PREPARE. 02/06/2023 3:13 AM CDT [facility] BLOOD UNIT NUMBER [id number] 02/07/2023 10:32 AM CDT [facility] PRODUCT: PC LEUKOPOOR 02/07/2023 10:32 AM CDT [facility] UNIT DIVISION 00 02/07/2023 10:32 AM CDT [facility] BLOOD UNIT STATUS UNIT RELEASED 02/07/2023 10:32 AM CDT [facility] UNIT ANTIGEN TYPE FyA POS 02/07/2023 10:32 AM CDT [facility] TRANSFUSION STATUS DO NOT ISSUE FOR TRANSFUSION 02/07/2023 10:32 AM CDT [facility] BLOOD UNIT NUMBER [id number] 02/07/2023 10:32 AM CDT [facility] PRODUCT: PC LEUKOPOOR 02/07/2023 10:32 AM CDT [facility] UNIT DIVISION 00 02/07/2023 10:32 AM CDT [facility] BLOOD UNIT STATUS UNIT RELEASED 02/07/2023 10:32 AM CDT [facility] UNIT ANTIGEN TYPE FyA POS 02/07/2023 10:32 AM CDT [facility] TRANSFUSION STATUS DO NOT ISSUE FOR TRANSFUSION 02/07/2023 10:32 AM CDT [facility] BLOOD UNIT NUMBER [id number] 02/07/2023 10:32 AM CDT [facility] PRODUCT: PC LEUKOPOOR 02/07/2023 10:32 AM CDT [facility] UNIT DIVISION 00 02/07/2023 10:32 AM CDT [facility] BLOOD UNIT STATUS UNIT RELEASED 02/07/2023 10:32 AM CDT [facility] UNIT ANTIGEN TYPE FyA POS 02/07/2023 10:32 AM CDT [facility] TRANSFUSION STATUS DO NOT ISSUE FOR TRANSFUSION 02/07/2023 10:32 AM CDT [facility] BLOOD UNIT NUMBER [id number] 02/07/2023 10:32 AM CDT [facility] PRODUCT: PC LEUKOPOOR 02/07/2023 10:32 AM CDT [facility] UNIT DIVISION 00 02/07/2023 10:32 AM CDT [facility] BLOOD UNIT STATUS UNIT RELEASED 02/07/2023 10:32 AM CDT [facility] UNIT ANTIGEN TYPE FyA POS 02/07/2023 10:32 AM CDT [facility] TRANSFUSION STATUS DO NOT ISSUE FOR TRANSFUSION 02/07/2023 10:32 AM CDT [facility] BLOOD UNIT NUMBER [id number] 02/07/2023 10:35 AM CDT [facility] PRODUCT: PC LEUKOPOOR 02/07/2023 10:35 AM CDT [facility] UNIT DIVISION 00 02/07/2023 10:35 AM CDT [facility] BLOOD UNIT STATUS TRANSFUSED,FINAL 02/08/2023 6:47 AM CDT [facility] ISSUE DATE/TIME [id number] 023 6:47 AM CDT [facility] PRODUCT CODE [id number] 02/08/2023 6:47 AM CDT [facility] ABO/RH Unit A POS 02/08/2023 6:47 AM CDT [facility] ABO/RH UNIT ISBT CODE 6200 02/08/2023 6:47 AM CDT [facility] BLOOD UNIT EXPIRATION DATE [id number] 02/08/2023 6:47 AM CDT [facility] UNIT ANTIGEN TYPE FyA NEG 02/07/2023 10:35 AM CDT [facility] TRANSFUSION STATUS OK TO TRANSFUSE 02/07/2023 10:35 AM CDT [facility] CROSSMATCH COMPATIBLE 02/07/2023 10:35 AM CDT [facility] BLOOD UNIT NUMBER [id number] 02/07/2023 10:35 AM CDT [facility] PRODUCT: PC LEUKOPOOR 02/07/2023 10:35 AM CDT [facility] UNIT DIVISION 00 02/07/2023 10:35 AM CDT [facility] BLOOD UNIT STATUS UNIT RELEASED 02/09/2023 7:08 PM CDT [facility] UNIT ANTIGEN TYPE FyA NEG 02/07/2023 10:35 AM CDT [facility] TRANSFUSION STATUS OK TO TRANSFUSE 02/07/2023 10:35 AM CDT [facility] CROSSMATCH COMPATIBLE 02/07/2023 10:35 AM CDT [facility] 02/06/2023 1:56 AM CDT Amauri Hammond MD BLOOD BANK TEST ORDERABLES F inal Result [facility] [address] [place] [address], [id number] * TROPONIN, QUANT (02/06/2023 1:56 AM CDT) Pathologist [facility] TROPONIN I HIGH SENSITIVITY 39 0 - 78 ng/L 02/06/2023 2:35 AM CDT [facility] 02/06/2023 1:56 AM CDT Amauri Hammond MD LABORATORY Final Result [facility] [address] [place] [address], [phone] * (ABNORMAL) COMPREHENSIVE METABOLIC PANEL (02/06/2023 1:56 AM CDT) SODIUM S/P/B 132(L) 136 - 145 MMOL/L 02/06/2023 2:35 AM CDT [facility] POTASSIUM S/P/B 4.3 3.5 - 5.1 MMOL/L 02/06/2023 2:35 AM CDT [facility] CHLORIDE S/P/B 99 98 - 107 MMOL/L 02/06/2023 2:35 AM CDT [facility] CO2 26.2 21.0 - 32.0 MMOL/L 02/06/2023 2:35 AM CDT [facility] GLUCOSE 173(H) 74 - 106 MG/DL 02/06/2023 2:35 AM CDT [facility] BUN 72(H) 7 - 18 MG/DL 02/06/2023 2:35 AM CDT [facility] CREATININE S/P/B 2.81(H) 0.70 - 1.30 MG/DL 02/06/2023 2:35 AM CDT [facility] CALCIUM S/P/B 8.8 8.5 - 10.1 MG/DL 02/06/2023 2:35 AM CDT [facility] BILIRUBIN TOTAL S/P/B 1.2(H) 0.2 - 1.0 MG/DL 02/06/2023 2:35 AM CDT [facility] ALKALINE PHOSPHATASE S/P/B 144(H) 45 - 115 U/L 02/06/2023 2:35 AM CDT [facility] AST 25 15 - 37 U/L 02/06/2023 2:35 AM CDT [facility] ALT 19 16 - 61 U/L 02/06/2023 2:35 AM CDT [facility] TOTAL PROTEIN S/P/B 7.8 6.4 - 8.2 G/DL 02/06/2023 2:35 AM CDT [facility] ALBUMIN S/P/B 3.1(L) 3.4 - 5.0 G/DL 02/06/2023 2:35 AM CDT [facility] ANION GAP 6.8 5.0 - 15.0 MMOL/L 02/06/2023 2:35 AM CDT [facility] OSMOLALITY (CALC) 299 MOSM/KG 023 2:35 AM CDT [facility] Comment:REFERENCE RANGE NOT ESTABLISHED GFR ESTIMATE 24(L) >90 ML/MIN/1. 73 M2 02/06/2023 2:35 AM CDT [facility] GFR NOTES GFR REFERENCE S: 02/06/2023 2:35 AM CDT [facility] Comment: THE ESTIMATED GFR [...] us Amauri Hammond MD LABORATORY Final Result [facility] [address] [place] [address], [id number] * (ABNORMAL) PARTIAL THROMBOPLASTIN TIME,PTT (02/06/2023 1:56 AM CDT) PTT 39.3(H) 25.1 - 36.5 SEC 02/06/2023 2:25 AM CDT [facility] 02/06/2023 1:56 AM CDT Amauri Hammond MD LABORATORY Final Result Performing Organization Address [facility] de Phone Number [facility] [address] [place] [address], [phone] * (ABNORMAL) PROTIME/INR, VENOUS (02/06/2023 1:56 AM CDT) PROTIME 40.7(H) 9.4 - 12.5 SEC 02/06/2023 2:22 AM CDT [facility] INR 3.5(H) 0.8 - 1.1 02/06/2023 2:22 AM CDT [facility] 02/06/2023 1:56 AM CDT Amauri Hammond MD LABORATORY Final Result Performing Organization Address [facility] de Phone Number [facility] [address] [place] [address], [phone] * (ABNORMAL) CBC W/DIFF AUTOMATED (02/06/2023 1:56 AM CDT) WBC 10.96(H) 4.00 - 10.80 x10'3/uL 02/06/2023 2:08 AM CDT [facility] RBC 3.40(L) 4.50 - 6.10 x10'6/uL 02/06/2023 2:08 AM CDT [facility] HGB 7.7(L) 13.0 - 18.0 G/DL 02/06/2023 2:08 AM CDT [facility] HCT 26.5(L) 37.0 - 52.0 % 02/06/2023 2:08 AM CDT [facility] MCV 77.9(L) 78.0 - 100.0 FL 02/06/2023 2:08 AM CDT [facility] MCH 22.6(L) 27.0 - 31.0 PG 02/06/2023 2:08 AM CDT [facility] MCHC 29.1(L) 33.0 - 36.0 G/DL 02/06/2023 2:08 AM CDT [facility] RDW 19.5(H) 11.5 - 14.5 % 02/06/2023 2:08 AM CDT [facility] PLT 166 150 - 350 x10'3/uL 02/06/2023 2:08 AM CDT [facility] MPV 10.8(H) 7.4 - 10.4 FL 02/06/2023 2:08 AM CDT [facility] ABS. NEUTROPHILS 9.24(H) 1.60 - 8.30 x10'3/uL 02/06/2023 2:08 AM CDT [facility] ABS. LYMPHOCYTES 0.68(L) 0.80 - 4.70 x10'3/uL 02/06/2023 2:08 AM CDT [facility] ABS. MONOCYTES 0.77 0.00 - 1.50 x10'3/uL 02/06/2023 2:08 AM CDT [facility] ABS. EOSINOPHILS 0.16 0.00 - 0.40 x10'3/uL 02/06/2023 2:08 AM CDT [facility] ABS. BASOPHILS 0.05 0.00 - 0.20 x10'3/uL 02/06/2023 2:08 AM CDT [facility] ABS. IMMATURE GRANULOCYTES 0.06(H) 0.00 - 0.03 x10'3/uL 02/06/2023 2:08 AM CDT [facility] ABS. NUCLEATED RBC'S 0.00 0.0 x10'3/uL 02/06/2023 2:08 AM CDT [facility] 02/06/2023 1:56 AM CDT Amauri Hammond MD LABORATORY Final Result Performing Organization Address [facility]/State/ZIP Co de Phone Number [facility] [address] [place] [address], [phone] * ECG 12 lead (02/06/2023 1:52 AM CDT) 02/06/2023 1:52 AM CDT Narrative [facility] - 02/06/2023 5:43 AM CDT ?SJS-ED ? Test Date: ?2023-02-06 Pat Name: ? OBIE SIMS ?Department: ?? 70 ? Room: ? EXAM N Gender: ? Male ? [employer]: ?? : ?1955 ? Requested By: AMAURI HAMMOND Order Number: [id number] ? Reading : ?? Brit Gonzáles ? Measurements Intervals ?[place] ? Rate: ? 89 ? P: ? [place]: ? 0 ?QRS: ?-34 QRSD: ? 137 [...] Department: 70 Room: EXAM N Gender: Male [employer]: : 1955 Requested By: AMAURI HAMMOND Order Number: [id number] Sage MD: Brit Gonzáles Measurements Intervals [place] Rate: 89 P: [place]: 0 QRS: -34 QRSD: 137 T: 138 QT: 384 QTc: 469 Interpretive Statements UNCERTAIN REGULAR RHYTHM LEFT AXIS DEVIATION [QRS AXIS < -30] INTRAVENTRICULAR CONDUCTION DELAY [130+ ms QRS DURATION] POSSIBLE ANTERIOR MYOCARDIAL INFARCTION , PROBABLY OLD [30 ms Q WAVE IN V3/V4, OR R < 0.2 mV IN V4] us Amauri Hammond MD ECG ORDERABLES Final Result Performing Organization Address City/State/[facility] Co de Phone Number [facility] documented in this encounter Visit Diagnoses [...] RN) 0428 (Patch Applied - Provider: Roseanna Stevens RN)1653 (Patch Removed - Provider: Opal Christianson RN) 0425 (Patch Applied - Provider: Mignon Silverio RN)1344 (Due: Patch Removed - Provider: Automatic Discharge Provider - Comment: Time automatically adjusted from order being discontinued) methocarbamol (ROBAXIN) tablet 500 mg 500 mg, Oral, 4 times daily, First dose on 02/06/23 at 0900, Until Discontinued 0924 (Given - Provider: Uri Velez RN)1240 (Given - Provider: Uri Velez RN)1714 (Given - Provider: Uri Velez [...] documented as of this encounter Care Teams Coach Cleaner Relationship Specialty Start Date End Date Megan Infante MD [address] [place] [address] PCP - General FAMILY PRACTICE 04/06/16 Amauri Pandey MD [employer] CARDIOVASCULAR DISEASE 04/06/16 12/28/23 Sharmila Davis APRN, LOOP TACKER-C [id number] [place] [address] NURSE PRACTITIONER 01/04/17 04/03/24 Linda Block MD [address] [facility] [address] [place] [phone] [employer] CLINICAL CARDIAC ELECTROPHYSIOLOGY 02/08/17 04/12/23 Jeff Delgado MD [address] [facility] [address] [place] [phone] Consulting Physician INTERNAL MEDICINE 02/20/19 3 Zaki Ortiz MD [address] [facility] [address] [place] [address] Consulting Physician PULMONARY DISEASE 07/12/19 Concetta Acevedo MD [address] [place] [address] [id number] Surgeon NEUROLOGICAL SURGERY 12/16/22 documented as of this encounter
--- OUTSIDE RECORDS SUMMARY | 2024-09-03 20:38 | XMS_ITS | Encounter Summary ---
Author Organization [facility] Address [facility] [place] [address] [place] [address] Care Team Providers Care Area Secretary Name Role Phone Piyush Pandey MD Unavailable Unavailabl e Megan Infante MD Primary Care Provider [phone] Sharmila Davis APRN LUMP ROOM SUPERVISOR-C Unavailable [phone] Zaki Ortiz MD Unavailable [phone] Concetta Acevedo MD Unavailable + [phone] Jeff Grace MD Unavailable Encounter Details Date [...] How often do you attend baptist or amish serv ices? Patient declined 02/16/2023 [...] slept in a fci (including now)? Patient refused 02/16/2023 Sex and [...] st Contact Info) Description 09/25/2024 2:[address] [facility] [address] [place] [address] Zayra Powell, REGIONAL TANKER TRUCK DRIVER [address] [place] [address] 10/16/2024 3:30 PM MID TEACHER Office Visit [facility] [id number] [place] [address] Brit Gonzáles MD [address] [place] [address] documented as of this [...] documented as of this encounter Care Teams Area Secretary Relationship Specialty Start Date End Date Megan Infante MD [address] [place] [address] PCP - General FAMILY PRACTICE 04/06/16 Piyush Pandey MD [employer] CARDIOVASCULAR DISEASE 04/06/16 12/28/23 Sharmila Davis APRN, LUMP ROOM SUPERVISOR-C [address] [facility] [address] [place] [address] NURSE PRACTITIONER 01/04/17 04/03/24 Zaki Ortiz MD [address] [facility] [address] [place] [phone] Consulting Physician PULMONARY DISEASE 07/12/19 Concetta Acevedo MD [address] [place] [address] [phone] Surgeon NEUROLOGICAL SURGERY 12/16/22 Jeff Grace MD [address] [place], [place] [address] Consulting Physician INTERNAL MEDICINE 02/11/23 documented as of this encounter
--- OUTSIDE RECORDS SUMMARY | 2024-09-03 20:38 | XMS_ITS | Encounter Summary ---
Author Organization [facility] Address [address] [place] [address]. [place] [address] [place] [address] Care Team Providers Care Tele Marketing Executive Name Role Phone Piyush Pandey MD Unavailable Unavailabl e Megan Infante MD Primary Care Provider [phone] Sharmila Davis APRN, NP-C Unavailable [phone] Linda Block MD Unavailable [phone] Zaki Ortiz MD Unavailable [phone] RomeoConcetta Pond MD Unavailable + [phone] Jeff Grace MD Unavailable Reason for Visit * Reason Onset Date Comments Surgical Clearance 03/23/2023 Neck surgery Encounter Details Date Type Department Care Team (Late st Contact Info) Description 03/23/2023 Telephone [facility] [address] [place] [address] Piyush Pandey MD Surgical Clearance [...] often do you attend jehovah's witness or episcopal serv ices? Patient declined 02/16/2023 [...] move on to questions 3-9 0 12/01/2021 [facility] [place] of Occupat ional Health - Occupational Stress [...] st Contact Info) Description 09/25/2024 2:00 PM ALUMNI COORDINATOR Appointment [place] [address] [place] [address] Zayra Powell, FULFILLMENT REPRESENTATIVE [address] [place] [phone] 10/16/2024 3:30 PM ALUMNI COORDINATOR Office Visit [facility] [address] [place] [phone] Brit Gonzáles MD [address] [place] [address] documented as of this encounter Goals Goal [...] documented as of this encounter Care Teams Tele Marketing Executive Relationship Specialty Start Date End Date Megan Infante MD [address] [place] [address] PCP - General FAMILY PRACTICE 04/06/16 Piyush Pandey MD [employer] Manager CARDIOVASCULAR DISEASE 04/06/16 12/28/23 Sharmila Davis, BATH MIX OPERATOR, CLASSROOM TECHNOLOGY COACH-C [address] [phone] NURSE PRACTITIONER 01/04/17 04/03/24 Linda Block MD [address] [place] [phone] [employer] Manager CLINICAL CARDIAC ELECTROPHYSIOLOGY 02/08/17 04/12/23 Zaki Ortiz MD [address] [place] [phone] Consulting Physician PULMONARY DISEASE 07/12/19 Concetta Acevedo MD [address] [place] [phone] Surgeon NEUROLOGICAL SURGERY 12/16/22 Jeff Grace MD [address] [place], [place] [address] Consulting Physician INTERNAL MEDICINE 02/11/23 documented as of this encounter
--- OUTSIDE RECORDS SUMMARY | 2024-09-03 20:38 | XMS_ITS | Encounter Summary ---
Author Organization [facility] Address [facility] [place] [address] [place] [address] Care Team Providers Care Hydroelectric Plant Electrician Name Role Phone Piyush Pandey MD Unavailable Unavailabl e Megan Infante MD Primary Care Provider [phone] Sharmila Davis APRN, NP-C Unavailable [phone] Linda Block MD Unavailable [phone] Zaki Ortiz MD Unavailable [phone] Romeo-Concetta Pond MD Unavailable + [phone] Jeff Grace MD Unavailable Encounter Details Date Type Department Care Team (Late st Contact Info) Description 04/05/2023 11:32 AM CDT - 04/05/2023 11:59 PM CDT Hospital Encounter [facility] [place] [address] Theresa Sheriff PAMartyC [address] [place] [phone] Discharge Disposition: Home or Self Care (Routine [...] How often do you attend adventism or islam serv ices? Patient declined 02/16/2023 [...] move on to questions 3-9 0 12/01/2021 [facility] - Occupational Stress Questionnaire [...] topically 2 (two) times a day. 3 dicloxacillin (DYNAPEN) 250 MG capsule 03/30/2023 3 furosemide (LASIX) 40 MG tablet Take [...] or as directed by MD 30 patch 02/10/2023 3 losartan (COZAAR) 50 [...] mg total) by mouth daily. 09/05/2022 3 triamcinolone (KENALOG) 0.1 % cream 03/30/2023 3 [...] st Contact Info) Description 09/25/2024 2:00 PM JUKEBOX ROUTE DRIVER Appointment [facility] [address] [place] [address] [place] [address] Zayra Powell, [facility] [address] [place] [address] 10/16/2024 3:30 PM JUKEBOX ROUTE DRIVER Office Visit [facility] [phone] [facility] [address] [address] Brit Gonzáles MD [address] [place], [place] [phone] documented as of this encounter Goals Goal Patient Goal Type Associated Problems Recent Progress Patient-Stated? Author Family - family caregiver with be involved in care transitions and discharge planning Lifestyle No Karen Quezada RN documented as of this encounter Procedures Procedure Name Priority Date/Time Associated Diagnosis Comments BASIC METABOLIC PANEL Routine 04/05/2023 10:45 AM CDT Chronic renal disease, stage III ([facility]/HCC HHS/HCC) documented in this encounter Results * (ABNORMAL) BASIC METABOLIC PANEL (04/05/2023 10:45 AM CDT) SODIUM S/P/B 134(L) 136 - 145 MMOL/L 04/05/2023 11:48 AM CDT [facility] POTASSIUM S/P/B 4.7 3.5 - 5.1 MMOL/L 04/05/2023 11:[address] [facility] CHLORIDE S/P/B 96(L) 98 - 107 MMOL/L 04/05/2023 11:[address] [facility] CO2 27.5 21.0 - 32.0 MMOL/L 04/05/2023 11:48 AM [facility] GLUCOSE 132(H) 70 - 99 MG/DL 04/05/2023 11:48 AM [facility] Comment: FASTING GLUCOSE 100 TO 125 MG/DL IS CONSISTENT WITH IMPAIRED FASTING GLUCOSE. FASTING GLUCOSE >125 MG/DL IS CONSISTENT WITH DIABETES. RANDOM GLUCOSE >200 MG/DL WITH HYPERGLYCEMIC SYMPTOMS IS CONSISTENT WITH DIABETES. PER ADA GUIDELINES BUN 112(H) 6 - 24 MG/DL 04/05/2023 11:48 AM [facility] CREATININE S/P/B 2.03(H) 0.70 - 1.30 MG/DL 04/05/2023 11:48 AM [facility] CALCIUM S/P/B 9.5 8.4 - 10.5 MG/DL 04/05/2023 11:48 AM [facility] ANION GAP 10.5 5.0 - 15.0 MMOL/L 04/05/2023 11:48 AM [facility] OSMOLALITY (CALC) 315 MOSM/KG 023 11:48 AM [facility] Comment:REFERENCE RANGE NOT ESTABLISHED GFR ESTIMATE 35(L) >89 ML/MIN/1. 73 M2 04/05/2023 11:48 AM [facility] GFR NOTES GFR REFERENCE S: 04/05/2023 11:48 AM [facility] Comment: THE ESTIMATED GFR [...] Theresa Sheriff PA-C LABORATORY Final Resu lt [facility] [address] [place] [address], documented in this encounter Visit Diagnoses Diagnosis Chronic renal disease, stage III (CMS/HCC HHS/HCC) Chronic kidney disease, Stage III (moderate) documented in this encounter Additional Health Concerns Assessment Noted Time PHQ-9 Depression Total Score: 0 12/02/19 22 1:18 PM CDT documented as of this encounter Care Teams Hydroelectric Plant Electrician Relationship Specialty Start Date End Date Megan Infante MD [address] [place] [phone] PCP - General FAMILY PRACTICE 04/06/16 Piyush Pandey MD [facility] Captain Room Service CARDIOVASCULAR DISEASE 04/06/16 12/28/23 Sharmila Davis APRN, PROGRAMMING INSTRUCTOR-C [address] [place] [id number] [place] [address] NURSE PRACTITIONER 01/04/17 04/03/24 Linda Block MD [address] [facility] [address] [place] [address] [facility] Captain Room Service CLINICAL CARDIAC ELECTROPHYSIOLOGY 02/08/17 04/12/23 Zaki Ortiz MD [address] [facility] [address] [place] [phone] Consulting Physician PULMONARY DISEASE 07/12/19 Concetta Acevedo MD [address] [place] [address] Surgeon NEUROLOGICAL SURGERY 12/16/22 Jeff Grace MD [address] [place] [address] Consulting Physician INTERNAL MEDICINE 02/11/23 documented as of this encounter
--- OUTSIDE RECORDS SUMMARY | 2024-09-03 20:38 | XMS_ITS | Encounter Summary ---
Author Organization [facility] Address [facility] [place] [address] [place] [address] Care Team Providers Care Stock House Worker Name Role Phone Piyush Pandey MD Unavailable Unavailabl e Megan Infante MD Primary Care Provider [phone] Sharmila Davis APRN, NP-C Unavailable [phone] Linda Block MD Unavailable [phone] Zaki Ortiz MD Unavailable [phone] Romeo-Concetta Pond MD Unavailable + [phone] Jeff Grace MD Unavailable Encounter Details Date [...] declined 02/16/2023 How often do you attend islam or yarsani serv ices? Patient declined 02/16/2023 Do you belong to any clubs o r organizations such as islam groups, unions, fraternal or athletic groups, or [...] 0 12/01/2021 [facility] - Occupational Stress Questionnaire Answer [...] st Contact Info) Description 09/25/2024 2:00 [address] Appointment [facility] [address] [place] [address] Zayra Powell, DIRECT MAIL COORDINATOR [address] [place] [address] 10/16/2024 3:[address] Office Visit [facility] [address] [place] [address] Brit Gonzáles MD [address] [place], [place] [address] documented as of this encounter Goals Goal [...] documented as of this encounter Care Teams Stock House Worker Relationship Specialty Start Date End Date Megan Infante MD [address] [place] [address] PCP - General FAMILY PRACTICE 04/06/16 Piyush Pandey MD [place] Chemistry Technologist CARDIOVASCULAR DISEASE 04/06/16 12/28/23 Sharmila Davis, PEST CONTROL WORKER, PRESSER HAND-C [address] [place] [address] 4[address]57 [place] [phone] NURSE PRACTITIONER 01/04/17 04/03/24 Linda Block MD [address] [facility] [address] [place] [address] [place] Chemistry Technologist CLINICAL CARDIAC ELECTROPHYSIOLOGY 02/08/17 04/12/23 Zaki Ortiz MD [address] [facility] [address] [phone] Consulting Physician PULMONARY DISEASE 07/12/19 Concetta Acevedo MD [facility] N [address] [place] [address] Surgeon NEUROLOGICAL SURGERY 12/16/22 Jeff Grace MD [address]19 [place] [address] Consulting Physician INTERNAL MEDICINE 02/11/23 documented as of this encounter
--- OUTSIDE RECORDS SUMMARY | 2024-09-03 20:38 | XMS_ITS | Encounter Summary ---
Author Organization [facility] Address [facility] [place] [address] [place] [address] Care Team Providers Care Chairman And Chief Executive Officer Name Role Phone Piyush Pandey MD Unavailable Unavailabl e Megan Infante MD Primary Care Provider [phone] Sharmila Davis APRN, NP-C Unavailable [phone] Linda Block MD Unavailable [phone] Zaki Ortiz MD Unavailable [phone] Romeo-Concetta Pond MD Unavailable + [phone] Jeff Grace MD Unavailable Encounter Details Date [...] How often do you attend moravian or anglican serv ices? Patient declined 02/16/2023 [...] [facility] ional [facility] - Occupational Stress Questionnaire Answer [...] slept in a custodial (including now)? Patient refused 02/16/2023 Sex and [...] Contact Info) Description 09/25/2024 2:00 PM INTERNATIONAL SALES REPRESENTATIVE Appointment [facility] [address] [place] [address] Zayra oPwell, AMBULANCE OPERATIONS SUPERVISOR [address] [place] [address] 10/16/2024 3:30 PM INTERNATIONAL SALES REPRESENTATIVE Office Visit [facility] [address] [place] [phone] Brit Gonzáles MD [address] [place] [address] documented as of this encounter Goals Goal [...] documented as of this encounter Care Teams Chairman And Chief Executive Officer Relationship Specialty Start Date End Date Megan Infante MD [address] [facility] [address] PCP - General FAMILY PRACTICE 04/06/16 Piyush Pandey MD [place] Combination Worker CARDIOVASCULAR DISEASE 04/06/16 12/28/23 Sharmila Davis APRN, BEFORE AND AFTER SCHOOL DAYCARE WORKER-C [address] [phone] NURSE PRACTITIONER 01/04/17 04/03/24 Linda Block MD [address] [place] [phone] [place] Combination Worker CLINICAL CARDIAC ELECTROPHYSIOLOGY 02/08/17 04/12/23 Zaki Ortiz MD [address] [place] [phone] Consulting Physician PULMONARY DISEASE 07/12/19 Concetta Acevedo MD [address] [place] [address] Surgeon NEUROLOGICAL SURGERY 12/16/22 Jeff Grace MD 9 [place], [place] [address] Consulting Physician INTERNAL MEDICINE 02/11/23 documented as of this encounter
--- OUTSIDE RECORDS SUMMARY | 2024-09-03 20:38 | XMS_ITS | Encounter Summary ---
Author Organization [facility] Address [facility]6 [facility] [place] [address] [place] [address] Care Team Providers Care Processing Technician Name Role Phone Piyush Pandey MD Unavailable Unavailabl e Megan Infante MD Primary Care Provider [phone] Sharmila Davis APRN, NP-C Unavailable [phone] Zaki Ortiz MD Unavailable [phone] Concetta Acevedo MD Unavailable + [phone] Jeff Grace MD Unavailable Encounter Details Date [...] Recorded In the past 12 months has [employer], gas, oil, or water [employer] threatened to shut off services in your [...] How often do you attend bahai or orthodoxy serv ices? Patient declined 02/16/2023 [...] or making decisions? No 07/12/2023 6:58 PM STATISTICS MANAGER Liliana Gutierrez R N Active * Because of a physical, mental, or emotional condition, do you have serious difficulty concentrating, remembering, or making decisions? Answer Entry Date Author Status No 02/16/2023 4:08 AM Iva Kenny RN Active documented in this encounter Plan of Treatment Upcoming Encounters Date Type Department Care Team (Late st Contact Info) Description 09/25/2024 2:00 PM STATISTICS MANAGER Appointment [facility] [address] [place] [address] Zayra Powell, LOG WASHER [address] [place] [address] 10/16/2024 3:30 PM STATISTICS MANAGER Office Visit [facility] [address] [place] [address] Brit Gonzáles MD 6[address] [place] [address] documented as of this encounter Goals Goal [...] documented as of this encounter Care Teams Processing Technician Relationship Specialty Start Date End Date Megan Infante MD [address] [facility] [place] [address] PCP - General FAMILY PRACTICE 04/06/16 Piyush Pandey MD [place] Front Attendant CARDIOVASCULAR DISEASE 04/06/16 12/28/23 Sharmila Davis, ADDICTIONS THERAPIST, WIRE STRAIGHTENER-C [address] [address] NURSE PRACTITIONER 01/04/17 04/03/24 Zaki Ortiz MD [address] [place] [address] Consulting Physician PULMONARY DISEASE 07/12/19 Concetta Acevedo MD [address] [place] [address] Surgeon NEUROLOGICAL SURGERY 12/16/22 Jeff Grace MD 9 [place], [place] [address] Consulting Physician INTERNAL MEDICINE 02/11/23 documented as of this encounter
--- OUTSIDE RECORDS SUMMARY | 2024-09-03 20:38 | XMS_ITS | Encounter Summary ---
Author Organization [facility] Address [address] [place] [address] [address] [place] [address] Care Team Providers Care Para Professional Name Role Phone Piyush Pandey MD Unavailable Unavailabl e Megan Infante MD Primary Care Provider [phone] Sharmila Davis APRN, NP-C Unavailable [phone] Linda Block MD Unavailable [phone] Zaki Ortiz MD Unavailable [phone] Concetta Acevedo MD Unavailable + [phone] Jeff Grace MD Unavailable Reason for Visit * Reason Comments Follow Up Encounter Details Date Type Department Care Team (Late st Contact Info) Description 03/08/2023 3:00 PM CDT Office Visit [facility] [place] [phone] Piyush Pandey MD Follow Up Social History [...] How often do you attend taoism or mosque serv ices? Patient declined 02/16/2023 [...] move on to questions 3-9 0 12/01/2021 [facility] [place] of Occupat ional Health - Occupational Stress [...] Navarro MD at [facility] OR ??? COLONOSCOPY N/A 01/27/2022 COLONOSCOPY [...] Exam Constitutional: No distress. Healthy Appearance. Wearing [place] [employer] shirt. HENT: Oropharynx clear. Eyes: Pupils [...] (HHS/HCC) (CMS/HCC) 3. 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 S/P aortic [...] shows that Mr. Lay was hospitalized at [facility] from 12/28/22to 01/04/23 for congestive heart failure [...] other symptomatology since his previous discharge from [facility]. He has had no recurrent heart failure [...] should he have any questions or problems. 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 S/P aortic valve [...] documented as of this encounter Care Teams Para Professional Relationship Specialty Start Date End Date Megan Infante MD [address] [place] [address] PCP - General FAMILY PRACTICE 04/06/16 Piyush Pandey MD [place] Card Game Operator CARDIOVASCULAR DISEASE 04/06/16 12/28/23 Sharmila Davis, RAILROAD TRACK REPAIR SUPERVISOR, VP CARDIOVASCULAR SERVICE LINE-C [address] [phone] NURSE PRACTITIONER 01/04/17 04/03/24 Linda Block MD [address] [place] [phone] [place] Card Game Operator CLINICAL CARDIAC ELECTROPHYSIOLOGY 02/08/17 04/12/23 Zaki Ortiz MD [address] [place] [phone] Consulting Physician PULMONARY DISEASE 07/12/19 Concetta Acevedo MD [address] [place] [address] Surgeon NEUROLOGICAL SURGERY 12/16/22 Jeff Grace MD 9 [place] [address] Consulting Physician INTERNAL MEDICINE 02/11/23 documented as of this encounter
--- OUTSIDE RECORDS SUMMARY | 2024-09-03 20:38 | XMS_ITS | Encounter Summary ---
Author Organization [facility] Address [facility] [place] [address] [place] [address] Care Team Providers Care Manager Stone Name Role Phone Piyush Pandey MD Unavailable Unavailabl e Megan Infante MD Primary Care Provider [phone] Sharmila Davis APRN ORIENTATION AND MOBILITY INSTRUCTOR-C Unavailable [phone] Zaki Ortiz MD Unavailable [phone] Concetta Acevedo MD Unavailable + [phone] Jeff Grace MD Unavailable Encounter Details Date [...] How often do you attend voodoo or anabaptism serv ices? Patient declined 02/16/2023 [...] st Contact Info) Description 09/25/2024 2:00 PM LINE CONSTRUCTION ENGINEER Appointment [facility] [address] [facility] [place] [address] Zayra Powell, FOOD AND DRUG RESEARCH SCIENTIST [address] [place] [address] 10/16/2024 3:30 PM LINE CONSTRUCTION ENGINEER Office Visit [facility] [phone] [facility] [place] [address] Brit Gnozáles MD [address] [place] [address] documented as of this encounter [...] as of this encounter Care Teams Manager Stone Relationship Specialty Start Date End Date Megan Infante MD [address] [place] [address] PCP - General FAMILY PRACTICE 04/06/16 Piyush Pandey MD [place] Account Information Clerk CARDIOVASCULAR DISEASE 04/06/16 12/28/23 Sharmila Davis APRN, ORIENTATION AND MOBILITY INSTRUCTOR-C [address] [facility] 4G68 [place] [address] NURSE PRACTITIONER 01/04/17 04/03/24 Zaki Ortiz MD [address] [facility] 4P[address] [place] [phone] Consulting Physician PULMONARY DISEASE 07/12/19 Concetta Acevedo MD [address] [place] [phone] Surgeon NEUROLOGICAL SURGERY 12/16/22 Jeff Grace MD [address]19 [place], [place] [address] Consulting Physician INTERNAL MEDICINE 02/11/23 documented as of this encounter
--- OUTSIDE RECORDS SUMMARY | 2024-09-03 20:38 | XMS_ITS | Encounter Summary ---
Author Organization [facility] Address [facility] [place] [address] [place] [address] Care Team Providers Care Stove Tender Name Role Phone Piyush Pandey MD Unavailable Unavailabl e Megan Infante MD Primary Care Provider [phone] Sharmila Davis APRN RAW HIDE TRIMMER-C Unavailable Zaki Ortiz MD Unavailable [phone] Concetta Acevedo MD Unavailable + [phone] Jeff Grace MD Unavailable Encounter Details Date Type Department Care Team (Late st Contact Info) Description 05/31/2023 2:30 PM CDT - 05/31/2023 11:59 PM CDT Hospital Encounter [facility] [address] [place] [address] Zayra Powell, [facility] [address] [place] [phone] Discharge Disposition: Home or Self Care (Routine [...] How often do you attend muslim or christian serv ices? Patient declined 02/16/2023 [...] Author Status No 02/16/2023 4:01 AM Iva Kneny RN Active * Do you have serious [...] mg total) by mouth daily. 12/14/2022 3 HYDROcodone-acetam inophen (NORCO) 7.5-325 MG tablet Take [...] Contact Info) Description 09/25/2024 2:00 PM RN PRIOR AUTHORIZATION Appointment [facility] [address] [place] [address] Zayra Powell, [facility] [address] [place] [address] 10/16/2024 3:30 PM RN PRIOR AUTHORIZATION Office Visit [facility] [address] [place] [address] Brit Gonzáles MD 619 [place] [address] documented as of this encounter Goals Goal [...] documented as of this encounter Care Teams Stove Tender Relationship Specialty Start Date End Date Megan Infante MD [address] [place] [phone] PCP - General FAMILY PRACTICE 04/06/16 Piyush Pandey MD [place] Vegetable Handler CARDIOVASCULAR DISEASE 04/06/16 12/28/23 Sharmila Davis, DANNY, RAW HIDE TRIMMER-C [address] [place] [phone] NURSE PRACTITIONER 01/04/17 04/03/24 Zaki Ortiz MD [address] [place] [phone] Consulting Physician PULMONARY DISEASE 07/12/19 Concetta Acevedo MD [address] [place] [address] Surgeon NEUROLOGICAL SURGERY 12/16/22 Jeff Grace MD [address] [place] [address] Consulting Physician INTERNAL MEDICINE 02/11/23 documented as of this encounter
--- OUTSIDE RECORDS SUMMARY | 2024-09-03 20:38 | XMS_ITS | Encounter Summary ---
Author Organization [facility] Address [address] [place] [address]. [place] [address] [place] [address] Care Team Providers Care Central Supply Technician Name Role Phone Piyush Pandey MD Unavailable Unavailabl e Megan Infante MD Primary Care Provider [phone] Sharmila Davis APRN, NP-C Unavailable [phone] Linda Block MD Unavailable [phone] Zaki Ortiz MD Unavailable [phone] Romeo-Concetta Pond MD Unavailable + [phone] Jeff Grace MD Unavailable Encounter Details Date Type Department Care Team (Late st Contact Info) Description 04/05/2023 Orders Only [facility] [address] [place] [address] Theresa Sheriff PAMartyC [facility] [place] [phone] Social History Tobacco Use Types Packs/Day Years [...] often do you attend roman catholic or oriental orthodox serv ices? Patient declined [...] move on to questions 3-9 0 12/01/2021 [facility]at [facility] [...] in a nursing home (including now)? Patient refused 02/16/2023 Sex [...] Contact Info) Description 09/25/2024 2:00 PM GAS PLUMBING INSPECTOR Appointment [facility] [address] [place] [address] Zayra Powell, [facility] [address] [place] [address] 10/16/2024 3:30 PM GAS PLUMBING INSPECTOR Office Visit [facility] [address] [address] Brit Gonzáles MD [address] [place] [address] documented as of this encounter Goals Goal Patient Goal Type Associated Problems Recent Progress Patient-Stated? Author Family - family caregiver with be involved in care transitions and discharge planning Lifestyle No Karen Quezada RN documented as of this encounter Results * (ABNORMAL) BASIC METABOLIC PANEL (04/05/2023 10:45 AM CDT) SODIUM S/P/B 134(L) 136 - 145 MMOL/L 04/05/2023 11:48 AM CDT [facility] POTASSIUM S/P/B 4.7 3.5 - 5.1 MMOL/L 04/05/2023 11:48 AM CDT [facility] CHLORIDE S/P/B 96(L) 98 - 107 MMOL/L 04/05/2023 11:48 AM CDT [facility] CO2 27.5 21.0 - 32.0 MMOL/L 04/05/2023 11:48 AM CDT [facility] GLUCOSE 132(H) 70 - 99 MG/DL 04/05/2023 11:48 AM [facility] Comment: FASTING GLUCOSE 100 TO 125 MG/DL IS CONSISTENT WITH IMPAIRED FASTING GLUCOSE. FASTING GLUCOSE >125 MG/DL IS CONSISTENT WITH DIABETES. RANDOM GLUCOSE >200 MG/DL WITH HYPERGLYCEMIC SYMPTOMS IS CONSISTENT WITH DIABETES. PER ADA GUIDELINES BUN 112(H) 6 - 24 MG/DL 04/05/2023 11:48 AM T [facility] CREATININE S/P/B 2.03(H) 0.70 - 1.30 MG/DL 04/05/2023 11:48 AM T [facility] CALCIUM S/P/B 9.5 8.4 - 10.5 MG/DL 04/05/2023 11:48 AM [facility] ANION GAP 10.5 5.0 - 15.0 MMOL/L 04/05/2023 11:48 AM [facility] OSMOLALITY (CALC) 315 MOSM/KG 023 11:48 AM T [facility] Comment:REFERENCE RANGE NOT ESTABLISHED GFR ESTIMATE 35(L) >89 ML/MIN/1. 73 M2 04/05/2023 11:48 AM [facility] GFR NOTES GFR REFERENCE S: 04/05/2023 11:48 AM [facility] Comment: THE ESTIMATED GFR IS CALCULATED [...] Theresa Sheriff PA-C LABORATORY Final Resu lt [facility] [address] [place] [address], documented in this encounter Visit Diagnoses Diagnosis Chronic renal disease, stage III (CMS/HCC HHS/HCC)- Primary Chronic kidney disease, Stage III (moderate) documented in this encounter Additional Health Concerns Assessment Noted Time PHQ-9 Depression Total Score: 0 12/02/19 22 1:18 PM CDT documented as of this encounter Care Teams Central Supply Technician Relationship Specialty Start Date End Date Megan Infante MD [address] [place] [phone] PCP - General FAMILY PRACTICE 04/06/16 Piyush Pandey MD [place] Technology Development Intern CARDIOVASCULAR DISEASE 04/06/16 12/28/23 Sharmila Davis, SAFETY ANALYST, CURTAIN WORKER-C [address] [phone] NURSE PRACTITIONER 01/04/17 04/03/24 Linda Block MD [address] [phone] [place] Technology Development Intern CLINICAL CARDIAC ELECTROPHYSIOLOGY 02/08/17 04/12/23 Zaki Ortiz MD [address] [phone] Consulting Physician PULMONARY DISEASE 07/12/19 Concetta Acevedo MD [address] [place] [address] Surgeon NEUROLOGICAL SURGERY 12/16/22 Jeff Grace MD [address] [place] [address] Consulting Physician INTERNAL MEDICINE 02/11/23 documented as of this encounter
--- OUTSIDE RECORDS SUMMARY | 2024-09-03 20:38 | XMS_ITS | Encounter Summary ---
Author Organization [facility] Address [facility] [place] [address] [place] [address] Care Team Providers Care Mandarin Speaking Nanny Name Role Phone Piyush Pandey MD Unavailable Unavailabl e Megan Infante MD Primary Care Provider [phone] Sharmila Davis APRN, NP-C Unavailable Linda Block MD Unavailable [phone] Zaki Ortiz MD Unavailable [phone] Romeo-Concetta Pond MD Unavailable + [phone] Jeff Grace MD Unavailable Reason for Visit * Reason Onset Date Comments Appointment Reminder 02/11/2023 Encounter Details Date Type Department Care Team (Late st Contact Info) Description 02/11/2023 [facility] [address] [place] [address] Jeff Grace MD [address] [place] [address] Appointment Reminder Social History Tobacco [...] often do you attend chur ch or evangelical services? More than 4 times per year [...] or slept in a alf (including now)? No 02/06/2023 Sex and Gender [...] Mendez scheduled for Apr 13, 2023 at [facility]. Reminder letter mailed . documented in this encounter Plan of Treatment Upcoming Encounters Date Type Department Care Team (Late st Contact Info) Description 09/25/2024 2:00 PM RESEARCH GROUP DIRECTOR Appointment [facility] [address] [place] [address] Zayra Powell, [facility] [address] [place] [address] 10/16/2024 3:30 PM RESEARCH GROUP DIRECTOR Office Visit [facility] [address] [place] [phone] Brit Gonzáles MD 9 [place] [address] documented as of this encounter Goals Goal [...] documented as of this encounter Care Teams Mandarin Speaking Nanny Relationship Specialty Start Date End Date Megan Infante MD [address] [facility] [place] [phone] PCP - General FAMILY PRACTICE 04/06/16 Piyush Pandey MD [place] Component Technician CARDIOVASCULAR DISEASE 04/06/16 12/28/23 Sharmila Davis APRN, BUILDING RENTAL SUPERINTENDENT-C [address] [phone] NURSE PRACTITIONER 01/04/17 04/03/24 Linda Block MD [address] [place] [phone] [place] Component Technician CLINICAL CARDIAC ELECTROPHYSIOLOGY 02/08/17 04/12/23 Zaki Ortiz MD [address] [place] [phone] Consulting Physician PULMONARY DISEASE 07/12/19 Concetta Acevedo MD [address] [place] [phone] Surgeon NEUROLOGICAL SURGERY 12/16/22 Jeff Grace MD [address] [place] [address] Consulting Physician INTERNAL MEDICINE 02/11/23 documented as of this encounter
--- OUTSIDE RECORDS SUMMARY | 2024-09-03 20:38 | XMS_ITS | Encounter Summary ---
Author Organization [facility] Address [facility] [place] [address] [place] [address] Care Team Providers Care Karate Black Belt Name Role Phone Piyush Pandey MD Unavailable Unavailabl e Megan Infante MD Primary Care Provider [phone] Sharmila Davis APRN, NP-C Unavailable [phone] Zaki Ortiz MD Unavailable [phone] Concetta Acevedo MD Unavailable + [phone] Jeff Grace MD Unavailable Reason for Visit * Reason Comments Follow Up Venous insufficiency Encounter Details Date Type Department Care Team (Latest Contact Info) Description 04/13/2023 10:15 AM CDT Office Visit [facility] [place] [address] Jeff Grace MD [address] [place] [address] Follow Up (Venous insufficiency ) Social History [...] How often do you attend episcopalian or zoroastrian serv ices? Patient declined 02/16/2023 [...] move on to questions 3-9 0 12/01/2021 [facility] of Occupat ional Health - [...] slept in a halfway (including now)? Patient refused 02/16/2023 Sex and [...] heart failure, unspecified heart failure type (HHS/HCC) ([facility]) Anxiety Aortic valve stenosis Arthritis Asthma, mild persistent ([facility]/HCC) 04/06/2021 Atrial fibrillation (HHS/HCC) ([facility]) s/p PVI/[facility] 10/2015 Bilateral leg pain Carotid disease, bilateral ([facility]/HCC) CHF (congestive heart failure) ([facility]/HCC) ([facility]) Claudication ([facility]/HCC) COPD (chronic obstructive pulmonary disease) ([facility]/HCC) ([facility]) Coronary artery disease Diabetes mellitus, type II (HHS/HCC) ([facility]HCC) Edema 04/19/2018 2+ pitting History of blood transfusion Hyperlipidemia Hypertension LV dysfunction Osteoarthritis PAD (peripheral artery disease) ([facility]) Pneumonia Restless leg syndrome S/P aortic valve replacement with bioprosthetic valve 2013 1999, 2013 SOB (shortness of breath) Stroke ([facility]/HCC) ([facility]) Varicose veins of bilateral lower extremities with other complications Weight gain with edema Past Surgical History: Procedure Laterality Date APPENDECTOMY CARDIAC VALVE REPLACEMENT 1999 CARDIAC VALVE REPLACEMENT 2013 CARDIOVERSION EXTERNAL 10/01/2015 CARDIOVERSION EXTERNAL 04/14/2012 COLONOSCOPY N/A 03/18/2021 COLONOSCOPY (Incomplete) performed by Kilo Navarro MD at [facility] OR COLONOSCOPY N/A 01/27/2022 COLONOSCOPY WITH COLD SNARE POLYPECTOMY performed by Kilo Navarro MD at [facility] OR HIP ARTHROPLASTY Left KNEE [...] Contact Info) Description 09/25/2024 2:00 PM BUSINESS LINE CONTROLLER Appointment [facility] [address] [facility] [place] [address] Zayra Powell, STORAGE MANAGEMENT CONSULTANT [address] [facility] [place] [address] 10/16/2024 3:30 PM BUSINESS LINE CONTROLLER Office Visit [facility] [address] [facility] [place] [address] Brit Gonzáles MD [address] [place], [place] [phone] documented as of this encounter Goals Goal [...] documented as of this encounter Care Teams Karate Black Belt Relationship Specialty Start Date End Date Megan Infante MD [address] [facility] [place] [address] PCP - General FAMILY PRACTICE 04/06/16 Piyush Pandey MD [place] Sugar Maker CARDIOVASCULAR DISEASE 04/06/16 12/28/23 Sharmila Davis APRN, VP MEDICAL-C [address] [place] [address] [address] [place] [address] NURSE PRACTITIONER 01/04/17 04/03/24 Zaki Ortiz MD [address] [facility] [address] [place] [address] Consulting Physician PULMONARY DISEASE 07/12/19 Concetta Acevedo MD [address] [place] [phone] Surgeon NEUROLOGICAL SURGERY 12/16/22 Jeff Grace MD [address] [place] [address] Consulting Physician INTERNAL MEDICINE 02/11/23 documented as of this encounter
--- OUTSIDE RECORDS SUMMARY | 2024-09-03 20:38 | XMS_ITS | Encounter Summary ---
Author Organization [facility] Address [facility] [place] [address] [place] [address] Care Team Providers Care Resident Care Supervisor Name Role Phone Piyush Pandey MD Unavailable Unavailabl e Megan Infante MD Primary Care Provider [phone] Sharmila Davis APRN, NP-C Unavailable [phone] Linda Block MD Unavailable [phone] Zaki Ortiz MD Unavailable [phone] Romeo-Concetta Pond MD Unavailable + [phone] Jeff Grace MD Unavailable Brit Gonzáles MD Unavailable Encounter Details Date Type Department Care Team (Late st Contact Info) Description 02/22/2023 Hospital Follow-up Call [facility] [address] [place] [address] Cara Potter, RN Social History [...] How often do you attend baptist or jainism serv ices? Patient declined 02/16/2023 [...] move on to questions 3-9 0 12/01/2021 [facility] of Occupat ional Health - Occupational Stress [...] st Contact Info) Description 09/25/2024 2:00 PM ROUSTABOUT CREW LEADER Appointment [facility] [address] [place] [address] Zayra Powell, DINING ROOM MAID [address] [place] [address] 10/16/2024 3:30 PM ROUSTABOUT CREW LEADER Office Visit [facility] [address] [place] [phone] Brit Gonzáles MD [address] [place] [address] documented as of this encounter Goals Goal [...] documented as of this encounter Care Teams Resident Care Supervisor Relationship Specialty Start Date End Date Megan Infante MD [address] [place] [phone] PCP - General FAMILY PRACTICE 04/06/16 Piyush Pandey MD [place] Quality Officer CARDIOVASCULAR DISEASE 04/06/16 12/28/23 Sharmila Davis APRN, COMMERCIAL HVAC TECHNICIAN-C [address] [phone] NURSE PRACTITIONER 01/04/17 04/03/24 Linda Block MD [address] [place] [phone] [place] Quality Officer CLINICAL CARDIAC ELECTROPHYSIOLOGY 02/08/17 04/12/23 Zaki Ortiz MD [address] [place] [phone] Consulting Physician PULMONARY DISEASE 07/12/19 Concetta Acevedo MD [address] [place] [address] Surgeon NEUROLOGICAL SURGERY 12/16/22 Jeff Grace MD [address] [place] [address] Consulting Physician INTERNAL MEDICINE 02/11/23 Brit Gonzáles MD [address] [place] [address] Consulting Physician CARDIOVASCULAR DISEASE 12/29/23 documented as of this encounter
--- OUTSIDE RECORDS SUMMARY | 2024-09-03 20:39 | XMS_ITS | Encounter Summary ---
Author Organization [facility] Address [facility] [place] [address] [place] [address] Care Team Providers Care Rehabilitation Program Coordinator Name Role Phone Amauri Pandey MD Unavailable Unavailabl e Megan Infante MD Primary Care Provider [phone] Sharmila Davis APRN CARDIAC CATH TECHNOLOGIST-C Unavailable [phone] Linda Block MD Unavailable [phone] Jeff Grace MD Unavailable Zaki Ortiz MD Unavailable [phone] Concetta Acevedo MD Unavailable + [phone] Reason for Referral * Imaging (Urgent) - Closed Specialty Diagnoses / Procedures Referred By Contac t Referred To Contact RADIOLOGY Procedures USE ECHOCARDIOGRAM W CON USE ECHOCARDIOGRAM Juanpablo Pandey MD Phone: tel: fax: Referral ID Status Reason Start Date Expiration Date Visits Re quested Visits Authorized [id number] Closed 12/28/2022 12/29/2023 1 1 * Imaging (Urgent) - Closed Specialty Diagnoses / Procedures Referred By Contac t Referred To Contact RADIOLOGY Procedures CT ABD+PEL WO CON Juanpablo Pandey MD Phone: tel: fax: Referral ID Status Reason Start Date Expiration Date Visits Re quested Visits Authorized [id number] Closed 12/28/2022 12/29/2023 1 1 * (Routine) - Canceled Specialty Diagnoses / Procedures Referred By Contac t Referred To Contact Procedures OT eval and treat Juanpablo Pandey MD Phone: tel: fax: Referral ID Status Reason Start Date Expiration Date V isits Requested Visits Authorized [id number] Canceled 12/28/2022 12/29/2023 1 1 * (Routine) - Canceled Specialty Diagnoses / Procedures Referred By Contac t Referred To Contact Procedures PT eval and treat Juanpablo Pandey MD Phone: tel: fax: Referral ID Status Reason Start Date Expiration Date V isits Requested Visits Authorized [id number] Canceled 12/28/2022 12/29/2023 1 1 Reason for Visit * Reason Comments Leg Swelling Edema- 13 Years Or Older * Auth/Cert (Routine) Specialty Diagnoses / Procedures Referred By Contac t Referred To Contact Diagnoses Cellulitis CHF (congestive heart failure) ([facility]) Acute exacerbation of CHF (congestive heart failure) ([facility]) CHF (congestive heart failure) ([facility]) Procedures NONE Juanpablo Pandey MD [address] [place] [address] Phone: tel: fax: Referral ID Status Reason Start Date Expiration Date Visits Re quested Visits Authorized [id number] 1 1 Encounter Details Date Type Department Care Team (Latest Contact Info) Description 12/28/2022 11:59 AM CDT - 01/04/2023 1:56 PM CDT Hospital Encounter [facility] 4th Floor Medical [address] [place] [address] Josue Lagos MD [address] [place] [address] Juanpablo Pandey MD [address] [place] [address] [id number] Amauri Pandey MD Leg Swelling; Edema- 13 Years Or Older Discharge Disposition: [facility] Social History Tobacco Use Types Packs/Day [...] slept in a retirement (including now)? No 12/28/2022 Sex and Gender [...] 11:18 AM CDT Patient ID: Obie Sims [id number] 67-year-old 1955 Admit date: 12/28/2022 Expected Discharge [...] chronic heart failure, unspecified heart failure type ([facility]) Anxiety Aortic valve stenosis Arthritis Asthma, mild persistent 04/06/2021 Atrial fibrillation ([facility]) s/p PVI/[facility] 10/2015 Bilateral leg pain Carotid disease, bilateral (CMS/HCC) CHF (congestive heart failure) (CMS/HCC) Claudication ([facility]) COPD (chronic obstructive pulmonary disease) ([facility]) Coronary artery disease Diabetes mellitus, type II (CMS/HCC) Edema 04/19/2018 2+ pitting History of blood transfusion Hyperlipidemia Hypertension LV dysfunction Osteoarthritis PAD (peripheral artery disease) (CMS/HCC) Pneumonia Restless leg syndrome S/P aortic valve replacement with bioprosthetic valve 2013 1999, 2013 SOB (shortness of breath) Stroke ([facility]) Varicose veins of bilateral lower extremities with other complications Weight gain with edema Past Surgical History: Procedure Laterality Date APPENDECTOMY CARDIAC VALVE REPLACEMENT 1999 CARDIAC VALVE REPLACEMENT 2013 CARDIOVERSION EXTERNAL 10/01/2015 CARDIOVERSION EXTERNAL 04/14/2012 COLONOSCOPY N/A 03/18/2021 COLONOSCOPY (Incomplete) performed by Kilo Navarro MD at [facility] OR COLONOSCOPY N/A 01/27/2022 COLONOSCOPY WITH COLD SNARE POLYPECTOMY performed by Kilo Navarro MD at [facility] OR HIP ARTHROPLASTY Left KNEE [...] OBIE SIMS Department: 70 Room: 484Gender: Male News Reel Cameraman: ISABEL : 1955 Requested By: EVELINE JACINTO Order Number: [id number] MD: Domingo Parks Measurements Intervals [place] Rate: 90 P: IA: 0 QRS: -35 QRSD: 132 T: 136 [...] 12/29/2022 Echocardiography Report Pat.Name: OBIE SIMS Dariana.ID: [id number] St.Date: 12/29/2022 Refer.MD: JUANPABLO PANDEY Exam Time: 9:47:00 AM Study Type:ECHO WITH CARDIAC DOPPLER COMP Height: 66 in Weight: 226 lb BSA: 2.11 m2 Age: 12 1955,67Y Sex: M BP: 112/64 HR: 91 bpm Sonogrphr: Britney Alfonso [facility] Pat. Stat.:Inpatient Room: 484 Procedures: 2D, M-mode, [...] Mass 2D Value 227 g LV Mass [id number] 108 g/m2 Right Ventricle Right Ventricle 7.62 [...] Amauri Pandey M.D. ELECTROCARDIOGRAM Result Date: 12/28/2022 [facility] [address] [place] [address] Test Date:2022-12-28 Pat Name: OBIE SIMS Department: 105 Room: Gender: Male News Reel Cameraman: GEETA : 1955 Requested By: AMAURI PANDEY Order Number: [id number] Reading MD: Stalin Measurements Intervals [place] Rate: 80 P: IA: 0 QRS: -68 QRSD: 138 T: 92 QT: 372 QTc: 432 Interpretive Statements ATRIAL FIBRILLATION LEFT AXIS DEVIATION INTRAVENTRICULAR CONDUCTION DELAY Discharged Condition: good Code Status: Full Code Discharge Exam: Patient was seen and examined on day of discharge, vitals were stable. Disposition: discharged to half-way facility Patient Instructions: Current Discharge Medication List [...] directed Follow up labs needed: [facility] 3 to 5 days time the CBC, basic metabolic profile Next INR check in 3 days time further dosing of warfarin based on INR levels Return to emergency for worsening abdominal pain, distention Follow-up with the cardiology as arranged Follow-up; Megan Infante MD [address] [facility] [place] [address] Follow up with cbc/bmp Amauri Pandey MD [address] [facility] [address] Follow up in 2 week(s) Follow-up, next physician [facility] rounds rehab physician in 3-5 days with cbc/bmp/inr Total time spent on discharge was 37 minutes. Thank you for allowing [facility] hospitalist service to take care of your patient, Please call [phone] Ext [phone] if you have any questions or concern. [...] total) by mouth as needed for Constipation. hydrOXYzine (ATARAX) 50 MG tablet Take 1 [...] 1 puff into the lungs daily. 12/23/2022 amoxicillin-clav ulanate (AUGMENTIN) 875-125 MG tablet Take 1 tablet (875 mg total) by mouth every 12 (twelve) hours for 3 days. 6 tablet 01/04/2023 3 aspirin 81 MG chewable tablet Chew 1 tablet (81 mg total) by mouth daily. 04/18/2014 4 camphor-menthol (SARNA) lotion Apply topically 2 (two) times a day. 3 furosemide (LASIX) 80 MG tablet Take 1 [...] Indications: Chronic Pain 20 tablet 01/04/2023 3 insulin detemir (LEVEMIR FLEXPEN) 100 UNIT/ML [...] for 30 days. 45 tablet 01/04/2023 3 methocarbamol (ROBAXIN) 500 MG tablet Take [...] 09/05/2022 3 warfarin (COUMADIN) 1 MG tablet 2 tablets (2 mg total) daily. As directed 10/22/2022 3 warfarin (COUMADIN) 5 MG tablet 1 tablet (5 mg total) daily. As directed 05/14/2022 3 documented as of this encounter Progress Notes * Ana Maria Porter, DIRECTOR PAYMENT - 01/04/2023 1:56 PM CDT PT Treatment Discharge Recommendation: home with assistance P/T home health Activity Recommendation for supervisor framing mill: up with 1, 2ww, gait belt 01/04/23 [...] Name: Obie Sims Primary Language of learner: Serbian Patient was educated on transfers balance bed [...] chronic heart failure, unspecified heart failure type ([facility]) Anxiety Aortic valve stenosis Arthritis Asthma, mild persistent 04/06/2021 Atrial fibrillation ([facility]) s/p PVI/[facility] 10/2015 Bilateral leg pain Carotid disease, bilateral ([facility]) CHF (congestive heart failure) ([facility]) Claudication ([facility]) COPD (chronic obstructive pulmonary disease) ([facility]) Coronary artery disease Diabetes mellitus, type II ([facility]) Edema 04/19/2018 2+ pitting History of blood transfusion Hyperlipidemia Hypertension LV dysfunction Osteoarthritis PAD (peripheral artery disease) ([facility]) Pneumonia Restless leg syndrome S/P aortic valve replacement with bioprosthetic valve 2013 SOB (shortness of breath) Stroke ([facility]) Varicose veins of bilateral lower [...] increase INR: Augmentin (12/31-), cefepime (12/28-12/31), ropinirole (DIRECTOR PAYMENT) Potential to decrease INR: Spironolactone, Trazodone (12/31 PRN Potential to increase the risk of bleeding: aspirin (on a PPI), sertraline (DIRECTOR PAYMENT) Warfarin Sensitivity: high, based on the following [...] per Dr. Virgil RYDER, PharmD Phone number: [phone] 01/04/2023 11:35 AM * Matilde Gentile RN - 01/04/2023 10:09 AM CDT Discharged planned today [facility] will pick patient up at 1400 Patient will need covid test. It is ordered Nurse to nurse call report to [phone] Fax orders, avs, and dc summary to [phone] 01/04/23 6772 Interdisciplinary Group Conference Team Members Present Physician;Case/Care [...] traZODone ASSESSMENT /PLAN CHF (congestive heart failure) ([facility]) Acute on chronic systolic/diastolic heart failure Aortic [...] MD * Scotty Chan, PharmD, [facility] - 01/03/2023 11:42 AM CDT Warfarin - Pharmacy Dosing Service Note Obie Sims is a 67-year-old male for which pharmacy has been consulted to dose warfarin for A.fib. Goal INR is 2-3. Warfarin Order Set Activated: Yes Warfarin Start Date: continuation from home Past Medical History: Diagnosis Date Abnormal ankle brachial index (STELLA) Acute on chronic heart failure, unspecified heart failure type ([facility]) Anxiety Aortic valve stenosis Arthritis Asthma, mild persistent 04/06/2021 Atrial fibrillation ([facility]) s/p PVI/[facility] 10/2015 Bilateral leg pain Carotid disease, bilateral ([facility]) CHF (congestive heart failure) ([facility]) Claudication ([facility]) COPD (chronic obstructive pulmonary disease) ([facility]) Coronary artery disease Diabetes mellitus, type II ([facility]) Edema 04/19/2018 2+ pitting History of blood transfusion Hyperlipidemia Hypertension LV dysfunction Osteoarthritis PAD (peripheral artery disease) ([facility]) Pneumonia Restless leg syndrome S/P aortic valve replacement with bioprosthetic valve 2013 SOB (shortness of breath) Stroke ([facility]) Varicose veins of bilateral lower [...] increase INR: Augmentin (12/31-), cefepime (12/28-12/31), ropinirole (DIRECTOR PAYMENT) Potential to decrease INR: Spironolactone, Trazodone (12/31 PRN Potential to increase the risk of bleeding: aspirin (on a PPI), sertraline (DIRECTOR PAYMENT) Warfarin Sensitivity: high, based on the following [...] per Dr. Virgil CHAN PharmD, [facility] Phone number: [phone] 01/03/2023 11:42 AM * Abhijeet Mei RN [...] mobility Outcome: Progressing * Micaela Summers Torito, DIRECTOR PAYMENT - 01/02/2023 1:11 PM CDT PT Treatment Discharge Recommendation: Swing bed unit Activity Recommendation for supervisor framing mill: up with assist of 1 and use [...] Name: Obie Sims Primary Language of learner: Serbian Patient was educated on transfers balance bed mobility therapy plan gait safety. Education was completed one to one verbal hands-on this date. Preference of learning new concepts one to one verbal hands-on Barriers to education this date were physical impairment. Response to education this date verbalized understanding needs reinforcement needs follow up needs assistance. * Scotty Chan, AaliyahD, [facility] - 01/02/2023 12:09 PM CDT Warfarin - Pharmacy Dosing Service Note Obie Sims is a 67-year-old male for which pharmacy has been consulted to dose warfarin for A.fib. Goal INR is 2-3. Warfarin Order Set Activated: Yes Warfarin Start Date: continuation from home Past Medical History: Diagnosis Date Abnormal ankle brachial index (STELLA) Acute on chronic heart failure, unspecified heart failure type ([facility]) Anxiety Aortic valve stenosis Arthritis Asthma, mild persistent 04/06/2021 Atrial fibrillation ([facility]) s/p PVI/[facility] 10/2015 Bilateral leg pain Carotid disease, bilateral ([facility]) CHF (congestive heart failure) ([facility]) Claudication ([facility]) COPD (chronic obstructive pulmonary disease) ([facility]) Coronary artery disease Diabetes mellitus, type II ([facility]) Edema 04/19/2018 2+ pitting History of blood transfusion Hyperlipidemia Hypertension LV dysfunction Osteoarthritis PAD (peripheral artery disease) ([facility]) Pneumonia Restless leg syndrome S/P aortic valve replacement with bioprosthetic valve 2013 SOB (shortness of breath) Stroke ([facility]) Varicose veins of bilateral lower extremities with [...] increase INR: Augmentin (12/31-), cefepime (12/28-12/31), ropinirole (DIRECTOR PAYMENT) Potential to decrease INR: Spironolactone, Trazodone (12/31 PRN Potential to increase the risk of bleeding: aspirin (on a PPI), sertraline (DIRECTOR PAYMENT) Warfarin Sensitivity: high, based on the following [...] per Dr. Virgil CHAN, Reina, [facility] Phone number: [phone] 01/02/2023 12:09 PM * Juanpablo Pandey MD [...] traZODone ASSESSMENT /PLAN CHF (congestive heart failure) ([facility]) Acute on chronic systolic/diastolic heart failure Aortic [...] Younger MD - 01/01/2023 5:22 PM CDT [facility] PROGRESS NOTE Name:Obie Sims Age:67-year-old Sex:male [...] type II (CMS/HCC) Coronary artery disease involving [place] coronary artery of [place] heart without angina pectoris COPD (chronic obstructive pulmonary disease) ([facility]) Carotid disease, bilateral ([facility]) Arthritis Aortic stenosis Chronic anticoagulation Chronic atrial fibrillation ([facility]) S/P aortic valve replacement with bioprosthetic valve Varicose veins of bilateral lower extremities with other complications Abnormal ankle brachial index (TSELLA) Claudication ([facility]) Pain in both lower extremities Abnormal finding on lung imaging Abnormal finding on pulmonary function testing Shortness of breath TIA (transient ischemic attack) Obstructive sleep apnea (adult) (pediatric) Pulmonary hypertension ([facility]) Asymptomatic carotid artery stenosis, bilateral Mild persistent asthma without complication Leg edema Other closed fracture of distal end of right fibula with routine healing, subsequent encounter NSTEMI (non-ST elevated myocardial infarction) ([facility]) Elevated troponin Elevated brain natriuretic peptide (BNP) level [place] CHF (congestive heart failure) ([facility]) Review of Systems: Review of Systems Constitutional: [...] chronic heart failure, unspecified heart failure type ([facility]) Anxiety Aortic valve stenosis Arthritis Asthma, mild persistent 04/06/2021 Atrial fibrillation ([facility]) s/p PVI/[facility] 10/2015 Bilateral leg pain Carotid disease, bilateral ([facility]) CHF (congestive heart failure) ([facility] [place] [place] Claudication ([facility] [place] [place]) COPD (chronic obstructive pulmonary disease) ([facility] [place] [place]) Coronary artery disease Diabetes mellitus, type II ([facility] [place] [place]) Edema 04/19/2018 2+ pitting History of blood transfusion Hyperlipidemia Hypertension LV dysfunction Osteoarthritis PAD (peripheral artery disease) ([facility]) Pneumonia Restless leg syndrome S/P aortic valve replacement with bioprosthetic valve 2013 SOB (shortness of breath) Stroke ([facility] [place] [place]) Varicose veins of bilateral lower extremities with [...] increase INR: Augmentin (12/31-), cefepime (12/28-12/31), ropinirole (DIRECTOR PAYMENT) Potential to decrease INR: Spironolactone, Trazodone (12/31 PRN Potential to increase the risk of bleeding: aspirin (on a PPI), sertraline (DIRECTOR PAYMENT) Warfarin Sensitivity: high, based on the following [...] per Dr. Virgil Oh, PharmD Phone number: [phone] 01/01/2023 1:33 PM * Catrachita Kristopher Coon, JAKE - 01/01/2023 1:33 PM CDT OT Treatment Discharge Recommendation: Swing bed unit DME equipment recommendation: none Activity Recommendation for supervisor framing mill: up with assist of 1 using wheeled [...] trouble wtih it for 4 months. Tells content writer ortho surgeon came in this morning [...] Name: Obie Sims Primary Language of learner: Serbian Patient was educated on precautions transfers ADLs [...] traZODone ASSESSMENT /PLAN CHF (congestive heart failure) ([facility]) Acute on chronic systolic/diastolic heart failure Aortic [...] further assistance. PRIYANKA KELLY PharmD Phone number: [phone] 12/31/2022 3:20 PM * Julia Maurer PA-C - 12/31/2022 2:29 PM CDT Obie Sims is a 67-year-old male patient. Primary Maid Supervisor: Dr Pandey SUBJECTIVE: CHF, severe pulmonary hypertension, [...] echocardiogram Principal Problem: CHF (congestive heart failure) ([facility]) SNOMED CT(R): CONGESTIVE HEART FAILURE Current Facility-Administered [...] SIMS Department: 70 Room: 484 Gender: Male News Reel Cameraman: RLAlpesh : 1955 Requested By: EVELINE JACINTO Order Number: [id number] Reading MD: Domingo Parks Measurements Intervals [place] Rate: 90 P: IA: 0 QRS: -35 QRSD: 132 T: 136 [...] traZODone ASSESSMENT /PLAN CHF (congestive heart failure) ([facility]) Acute on chronic systolic/diastolic heart failure Aortic [...] chronic heart failure, unspecified heart failure type ([facility]) Anxiety Aortic valve stenosis Arthritis Asthma, mild persistent 04/06/2021 Atrial fibrillation ([facility]) s/p PVI/[facility] 10/2015 Bilateral leg pain Carotid disease, bilateral ([facility]) CHF (congestive heart failure) ([facility]) Claudication ([facility]) COPD (chronic obstructive pulmonary disease) ([facility]) Coronary artery disease Diabetes mellitus, type II ([facility]) Edema 04/19/2018 2+ pitting History of blood transfusion Hyperlipidemia Hypertension LV dysfunction Osteoarthritis PAD (peripheral artery disease) ([facility]) Pneumonia Restless leg syndrome S/P aortic valve replacement with bioprosthetic valve 2013 SOB (shortness of breath) Stroke ([facility]) Varicose veins of bilateral lower [...] Potential to increase INR: cefepime (12/28-), ropinirole (DIRECTOR PAYMENT) Potential to decrease INR: Spironolactone, Trazodone (12/28 [...] per Dr. Virgil RYDER, PharmD Phone number: [phone] 12/31/2022 10:49 AM * Aaliyah CastroD - [...] Consult per Dr. Virgil RYDER PharmRandy Phone: [phone] 12/31/2022 10:46 AM * Zayra Martínez RN [...] Recommendation: Swing bed unit Activity Recommendation for supervisor framing mill: assist of 1, 2ww, GB, up for meals, amb with staff design engineer 12/30/22 0600 Therapy Visit Ordering Provider Juanpablo [...] Name: Obie Sims Primary Language of learner: Serbian Patient was educated on precautions exercises transfers [...] supine to/from sitting at EOB with Modified [place] to improve mobility. Pt. will be able to perform sit to/from standing with Modified [place] using wheeled walker toimprove independence. Pt. will be able to ambulate 225 feet with SBA using wheeled walker to help improve strength and functional independence. Pt. will be able to maintain static sitting balance for 5-10 minutes with Modified [place] to improve independence. Pt. will be able to maintain dynamic sitting balance on soft surface with Modified [place] to improve functional mobility. Pt. will be able to maintain static standing balance 5-10 minutes with Modified [place] using wheeled walker to improve independence. Pt. will be able to maintain dynamic standing balance during side-stepping L/R and marching with Modified [place] using wheeled walker to improve functional mobility. [...] Consult per Dr. Virgil Oh, PharmD Phone: [phone] 12/30/2022 12:22 PM * Rylie Oh PharmD [...] (CMS/HCC) CHF (congestive heart failure) (CMS/HCC) Claudication ([facility]) COPD (chronic obstructive pulmonary disease) ([facility]) Coronary artery disease Diabetes mellitus, type II (CMS/HCC) Edema 04/19/2018 2+ pitting History of blood transfusion Hyperlipidemia Hypertension LV dysfunction Osteoarthritis PAD (peripheral artery disease) (CMS/HCC) Pneumonia Restless leg syndrome S/P aortic valve replacement with bioprosthetic valve 2013 SOB (shortness of breath) Stroke ([facility]) Varicose veins of bilateral lower extremities with [...] Potential to increase INR: cefepime (12/28-), ropinirole (DIRECTOR PAYMENT) Potential to decrease INR: Spironolactone, Trazodone (12/28 [...] per Dr. Virgil Oh, PharmD Phone number: [phone] 12/30/2022 12:16 PM * Juanpablo Pandey MD [...] traZODone ASSESSMENT /PLAN CHF (congestive heart failure) ([facility]) Acute on chronic systolic/diastolic heart failure Aortic [...] Recommendation: Swing bed unit Activity Recommendation for supervisor framing mill: up to chair for all meals, walking [...] Name: Obie Sims Primary Language of learner: Serbian Patient was educated on precautions transfers ADLs [...] complete all grooming and self-feeding with Modified [place] to increased safety and independence with ADLs. Pt will complete ADLs at sink with Modified [place] to increase independence with ADLs. Pt will complete toileting hygiene and clothing management with Modified [place] to increase safety and independence with ADLs. Pt to complete bathing with Minimal assistance seated in chair/EOB to increase independence with ADLs. Pt will complete bed mobility with Modified [place] with HOB flat to increase safety and independence with functional transfers. Pt will complete transfers all surfaces to/from all surfaces with Modified [place] using wheeled walker to increase functional mobility and transfers. Pt will participate within skilled therapy services for 20-30 minutes with 1-2 rest breaks to increase independence with ADLs and functional transfers. Pt will increase dynamic standing balance standing at sink/dressing completing ADLs with Modified [place] with wheeled walker for 10-20 minutes to [...] x 1 then 1 gm Q24H Assessment: bOie Sims is a 67-year-old male who is [...] Consult per Dr. Virgil Oh, PharmD Phone: [phone] 12/29/2022 12:36 PM * Rylie Oh PharmD [...] chronic heart failure, unspecified heart failure type ([facility]) Anxiety Aortic valve stenosis Arthritis Asthma, mild persistent 04/06/2021 Atrial fibrillation ([facility]) s/p PVI/[facility] 10/2015 Bilateral leg pain Carotid disease, bilateral ([facility]) CHF (congestive heart failure) ([facility]) Claudication ([facility]) COPD (chronic obstructive pulmonary disease) ([facility]) Coronary artery disease Diabetes mellitus, type II ([facility]) Edema 04/19/2018 2+ pitting History of blood transfusion Hyperlipidemia Hypertension LV dysfunction Osteoarthritis PAD (peripheral artery disease) ([facility]) Pneumonia Restless leg syndrome S/P aortic valve replacement with bioprosthetic valve 2013 SOB (shortness of breath) Stroke ([facility]) Varicose veins of bilateral lower [...] per Dr. Virgil Oh, PharmD Phone number: [phone] 12/29/2022 12:32 PM * Juanpablo Pandey MD [...] traZODone ASSESSMENT /PLAN CHF (congestive heart failure) ([facility]) Acute on chronic systolic/diastolic heart failure Aortic [...] Right Pre-existing: Yes Wound Bed Assessment Partial Thickness;[place];Yellow Anya-wound Assessment Hemosiderin staining Wound Length (cm) [...] valve 2013 SOB (shortness of breath) Stroke ([facility]) Varicose veins of bilateral lower extremities with [...] per Dr. Virgil RYDER, PharmD Phone number: [phone] 12/28/2022 4:43 PM * Aaliyah CastroD - [...] Consult per Dr. Virgil RYDER, PharmRandy Phone: [phone] 12/28/2022 4:00 PM * Misael Jamison RN [...] Assistance No Behavior Oriented;Cooperative Communication Talks;Understands speaking;Understands Serbian Socioeconomic Needs Caregiver Needed Yes At Risk [...] Patient expects to be discharged to: Home Pm Head Cook introduced self and explained CM role to pt. Pt lives at home with his daughter, Bonnie, who can be reached at [phone]. Pt is dependent on his daughter for assist x 1 for ADLs. Pt needs help with dressing, bathing, and grooming. Pt can feed self. Pt is requesting help from [facility] for a caregiver at home. Pt uses a cane and a standard walker to ambulate around home. Pt is on 2LNC O2 at home from [facility]. No dialysis. No hospitalizations within last 30 days. Pt has had COVID vaccines but needs booster. No POA. PCP: Dr Infante Rx: [facility] in [place], [place]([phone]) Pm Head Cook contacted Senior [facility] for [facility] and spoke to Maria M. Maria M will call ptto follow up on caregiver needs at home per pt request. [phone] Pm Head Cook went to update pt on senior services call and he was already on the phone with resource. [phone] documented in this encounter H&P Notes * Juanpablo Pandey MD - 12/28/2022 4:03 PM CDT Hospitalist H&P Note Attending Provider: Juanpablo Pandey MD PCP: MEGAN INFANTE MD Obie Sims is an 67-year-old male. Reason for Admission: CHF (congestive heart failure) ([facility]) HPI: 67-year-old male history of CAD, COPD, [...] Arthritis Asthma, mild persistent 04/06/2021 Atrial fibrillation ([facility]) s/p PVI/[facility] 10/2015 Bilateral leg pain Carotid disease, bilateral ([facility]) CHF (congestive heart failure) ([facility]) Claudication ([facility]) COPD (chronic obstructive pulmonary disease) ([facility]) Coronary artery disease Diabetes mellitus, type II ([facility]) Edema 04/19/2018 2+ pitting History of blood transfusion Hyperlipidemia Hypertension LV dysfunction Osteoarthritis PAD (peripheral artery disease) ([facility]) Pneumonia Restless leg syndrome S/P aortic valve replacement with bioprosthetic valve 2013 SOB (shortness of breath) Stroke ([facility]) Varicose veins of bilateral lower extremities with other complications Weight gain with edema Past Surgical History: Procedure Laterality Date APPENDECTOMY CARDIAC VALVE REPLACEMENT 1999 CARDIAC VALVE REPLACEMENT 2013 CARDIOVERSION EXTERNAL 10/01/2015 CARDIOVERSION EXTERNAL 04/14/2012 COLONOSCOPY N/A 03/18/2021 COLONOSCOPY (Incomplete) performed by Kilo Navarro MD at [facility] OR COLONOSCOPY N/A 01/27/2022 COLONOSCOPY WITH COLD SNARE POLYPECTOMY performed by Kilo Navarro MD at [facility] OR HIP ARTHROPLASTY Left KNEE [...] 2 mg, 2 mg, Intravenous, Q4H PRN, Fortunato Guzmán MD, 2 mg at 12/28/22 1518 [...] Rfl: Principal Problem: CHF (congestive heart failure) ([facility]) SNOMED CT(R): CONGESTIVE HEART FAILURE VITAL SIGNS [...] 12/28/2022 S-ED Test Date: 2022-12-28 Pat Name: OBIE SIMS Department: 70 Room: Gender: Male News Reel Cameraman: ISABEL : 1955 Requested By: EVELINE JACINTO Order Number: [id number] Reading MD: Measurements Intervals [place] Rate: 90 P: IA: 0 QRS: -35 QRSD: 132 T: 136 [...] 12/28/2022 12:14 PM ELECTROCARDIOGRAM Result Date: 12/28/2022 [facility] [address] [place] [address] Test Date:2022-12-28 Pat Name: OBIE SIMS Department: 105 Room: Gender: Male News Reel Cameraman: AAB : 1955 Requested By: AMAURI PANDEY Order Number: [id number] Reading MD: Stalin Measurements Intervals [place] Rate: 80 P: IA: 0 QRS: -68 QRSD: 138 T: 92 [...] Answered all questions. Thank you for choosing [facility] hospitalist service. JUANPABLO PANDEY MD 12/28/2022 [...] performed a few mo nths ago in [place] and was told he had a few [...] (Incomplete) performed by Kilo Navarro MD at [facility] OR COLONOSCOPY N/A 01/27/2022 COLONOSCOPY WITH COLD SNARE POLYPECTOMY performed by Kilo Navarro MD at [facility] OR HIP ARTHROPLASTY Left KNEE [...] fusion by Dr. Pond on 01/01/23 at [facility]. He has a history of coronary [...] (Incomplete) performed by Kilo Navarro MD at [facility] OR ??? COLONOSCOPY N/A 01/27/2022 ?? COLONOSCOPY WITH COLD SNARE POLYPECTOMY performed by Kilo Navarro MD at [facility] OR ??? HIP ARTHROPLASTY Left ? KNEE [...] and is usually easily applied.Discussed options within [place], Dr Grace has a clinic in [place] with appointment can followup for edema management. [...] peripheral artery disease presenting the ED from [facility] for lower legswelling and increased weight [...] Arthritis Asthma, mild persistent 04/06/2021 Atrial fibrillation ([facility]) s/p PVI/[facility] 10/2015 Bilateral leg pain Carotid disease, bilateral ([facility]) CHF (congestive heart failure) ([facility]) Claudication ([facility]) COPD (chronic obstructive pulmonary disease) ([facility]) Coronary artery disease Diabetes mellitus, type II ([facility]) Edema 04/19/2018 2+ pitting History of blood transfusion Hyperlipidemia Hypertension LV dysfunction Osteoarthritis PAD (peripheral artery disease) ([facility]) Pneumonia Restless leg syndrome S/P aortic valve replacement with bioprosthetic valve 2013 1999, 2013 SOB (shortness of breath) Stroke ([facility]) Varicose veins of bilateral lower extremities with other complications Weight gain with edema PAST SURGICAL HISTORY: Past Surgical History: Procedure Laterality Date APPENDECTOMY CARDIAC VALVE REPLACEMENT 1999 CARDIAC VALVE REPLACEMENT 2013 CARDIOVERSION EXTERNAL 10/01/2015 CARDIOVERSION EXTERNAL 04/14/2012 COLONOSCOPY N/A 03/18/2021 COLONOSCOPY (Incomplete) performed by Kilo Navarro MD at [facility] OR COLONOSCOPY N/A 01/27/2022 COLONOSCOPY WITH COLD SNARE POLYPECTOMY performed by Kilo Navarro MD at [facility] OR HIP ARTHROPLASTY Left KNEE [...] OBIE SIMS Department: 70 Room: Gender: Male News Reel Cameraman: ISABEL : 1955 Requested By: EVELINE JACINTO Order Number: [id number] Reading MD: Measurements Intervals [place] Rate: 90 P: IA: 0 QRS: -35 QRSD: 132 T: 136 [...] XR CHEST PA+LAT Final Result by User, [id number] (12/28 121) Patient name: OBIE SIMS Examination: [...] IV Lasix. Admitted patient to Dr. Pandey [facility] hospitalist, who accepted the patient for admission. Medical Decision Making Amount and/or Complexity of Data Reviewed Independent Historian: caregiver Details: Daughter Labs: ordered. Radiology: ordered. ECG/medicine tests: ordered. ED Course as of 12/28/22 1432 WedDecember 28, 20[address] Pandey, [facility] Hospitalist, who accepted patient for admission. He requested that I notify the patient's cafe helper, Dr. Pandey [FV] [address] Pandey [facility], who will see patient while he [...] M who presents to the ER from [facility] with complaints of lower leg swelling x6-8 weeks and increased weight gain. Hx of CHF and cafe helper was going to attempt to manage outpatient [...] st Contact Info) Description 09/25/2024 2:00 PM SUPPORT ANALYST Appointment [facility] [address] [place] [address] Zayra Powell, MONEY LAUNDERING INVESTIGATOR [address] [place] [address] 10/16/2024 3:30 PM SUPPORT ANALYST Office Visit [facility]-[address] [place] [id number] Brit Younger MD [address] [place] [phone] documented as of this encounter Procedures Procedure [...] 70 - 109 01/04/2023 12:05 PM CDT [facility] 01/04/2023 11:4 6 AM CDT Juanpablo Pandey MD POCT ORDERABLES - DEVICE Fin al Result [facility] [address] [place] [address], [id number] * CORONAVIRUS (COVID-19) ANTIGEN (01/04/2023 9:34 AM CDT) Pathologist [facility] CORONAVIRUS ANTIGEN IA NEGATIVE NEGATIVE 01/04/2023 10:11 AM CDT [facility] Comment: NEGATIVE RESULTS SHOULD BE TREATED [...] SPECIMEN TYPE NASAL 01/04/2023 9:34 AM CDT [facility] NASAL NASAL STRUCTURE / Unknown 01/04/2023 9:34 AM CDT Juanpablo Pandey MD MICROBIOLOGY - GENERAL ORDER BAKARI Final Result Performing Organization Address [facility] Co de Phone Number [facility] [address] [place] [address], [phone] * (ABNORMAL) POCT glucose (01/04/2023 5:51 AM CDT) GLUCOSE POC 131(H) 70 - 109 01/04/2023 6:17 AM CDT [facility] 01/04/2023 5:51 AM CDT Juanpablo Pandey MD POCT ORDERABLES - DEVICE Fin al Result Performing Organization Address [email or web address]] de Phone Number [facility] [address] [place] [address], [phone] * (ABNORMAL) PROTIME/INR, VENOUS - Daily (01/04/2023 5:15 AM CDT) PROTIME 17.6(H) 9.4 - 12.5 SEC 01/04/2023 5:50 AM CDT [facility] INR 1.6(H) 0.8 - 1.1 01/04/2023 5:50 AM CDT [facility] 01/04/2023 5:15 AM CDT Juanpablo Pandey MD LABORATORY Final Result Performing Organization Address [facility] Co de Phone Number [facility] [address] [place] [address], [id number] * MAGNESIUM (01/04/2023 5:15 AM CDT) MAGNESIUM 2.6 1.6 - 2.6 MG/DL 01/04/2023 5:54 AM CDT [facility] 01/04/2023 5:15 AM CDT Juanpablo Pandey MD LABORATORY Final Result [facility] [address] [place] [address], [phone] * (ABNORMAL) CBC W/DIFF AUTOMATED (01/04/2023 5:15 AM CDT) WBC 8.12 4.00 - 10.80 x10'3/uL 01/04/2023 5:27 AM CDT [facility] RBC 3.63(L) 4.50 - 6.10 x10'6/uL 01/04/2023 5:27 AM CDT [facility] HGB 8.5(L) 13.0 - 18.0 G/DL 01/04/2023 5:27 AM CDT [facility] HCT 28.9(L) 37.0 - 52.0 % 01/04/2023 5:27 AM CDT [facility] MCV 79.6 78.0 - 100.0 FL 01/04/2023 5:27 AM CDT [facility] MCH 23.4(L) 27.0 - 31.0 PG 01/04/2023 5:27 AM CDT [facility] MCHC 29.4(L) 33.0 - 36.0 G/DL 01/04/2023 5:27 AM CDT [facility] RDW 18.6(H) 11.5 - 14.5 % 01/04/2023 5:27 AM CDT [facility] PLT 175 150 - 350 x10'3/uL 01/04/2023 5:27 AM CDT [facility] MPV 10.2 7.4 - 10.4 FL 01/04/2023 5:27 AM CDT [facility] ABS. NEUTROPHILS 5.26 1.60 - 8.30 x10'3/uL 01/04/2023 5:27 AM CDT [facility] ABS. LYMPHOCYTES 1.44 0.80 - 4.70 x10'3/uL 01/04/2023 5:27 AM CDT [facility] ABS. MONOCYTES 1.05 0.00 - 1.50 x10'3/uL 01/04/2023 5:27 AM CDT [facility] ABS. EOSINOPHILS 0.26 0.00 - 0.40 x10'3/uL 01/04/2023 5:27 AM CDT [facility] ABS. BASOPHILS 0.08 0.00 - 0.20 x10'3/uL 01/04/2023 5:27 AM CDT [facility] ABS. IMMATURE GRANULOCYTES 0.03 0.00 - 0.03 x10'3/uL 01/04/2023 5:27 AM CDT [facility] ABS. NUCLEATED RBC'S 0.00 0.0 x10'3/uL 01/04/2023 5:27 AM CDT [facility] 01/04/2023 5:15 AM CDT Juanpablo Paresh Pandey MD LABORATORY Final Result [facility] [address] [place] [address], [phone] * (ABNORMAL) BASIC METABOLIC PANEL (01/04/2023 5:15 AM CDT) SODIUM S/P/B 131(L) 136 - 145 MMOL/L 01/04/2023 5:54 AM CDT [facility] POTASSIUM S/P/B 4.4 3.5 - 5.1 MMOL/L 01/04/2023 5:54 AM CDT [facility] CHLORIDE S/P/B 98 98 - 107 MMOL/L 01/04/2023 5:54 AM CDT [facility] CO2 30.2 21.0 - 32.0 MMOL/L 01/04/2023 5:54 AM CDT [facility] GLUCOSE 124(H) 74 - 106 MG/DL 01/04/2023 5:54 AM CDT [facility] BUN 44(H) 7 - 18 MG/DL 01/04/2023 5:54 AM CDT [facility] CREATININE S/P/B 2.14(H) 0.70 - 1.30 MG/DL 01/04/2023 5:54 AM CDT [facility] CALCIUM S/P/B 9.5 8.5 - 10.1 MG/DL 01/04/2023 5:54 AM CDT [facility] ANION GAP 2.8(L) 5.0 - 15.0 MMOL/L 01/04/2023 5:54 AM CDT [facility] OSMOLALITY (CALC) 285 MOSM/KG 023 5:54 AM CDT [facility] Comment:REFERENCE RANGE NOT ESTABLISHED GFR ESTIMATE 33(L) >90 ML/MIN/1. 73 M2 01/04/2023 5:54 AM CDT [facility] GFR NOTES GFR REFERENCE S: 01/04/2023 5:54 AM T [facility] Comment: THE ESTIMATED GFR IS [...] Juanpablo Paresh Pandey MD LABORATORY Final Result [facility] [address] [place] [address], [place] [phone] * (ABNORMAL) POCT glucose (01/03/2023 8:41 PM CDT) GLUCOSE POC 199(H) 70 - 109 01/03/2023 11:06 PM CDT [facility] 01/03/2023 8:41 PM CDT us Juanpablo Pandey MD POCT ORDERABLES - DEVICE Fin al Result Performing Organization Address [facility] de Phone Number [facility] [address] [place] [address], [place] [phone] * (ABNORMAL) POCT glucose (01/03/2023 4:14 PM CDT) GLUCOSE POC 167(H) 70 - 109 01/03/2023 4:26 PM CDT [facility] 01/03/2023 4:14 PM CDT us Juanpablo Pandey MD POCT ORDERABLES - DEVICE Fin al Result Performing Organization Address [facility] de Phone Number [facility] [address] [place] [address], [place] [phone] * (ABNORMAL) POCT glucose (01/03/2023 11:05 AM CDT) GLUCOSE POC 149(H) 70 - 109 01/03/2023 11:16 AM CDT [facility] 01/03/2023 11:0 5 AM CDT us Juanpablo Pandey MD POCT ORDERABLES - DEVICE Fin al Result Performing Organization Address [facility] Co de Phone Number [facility] [address] [place] [address], [place] [phone] * (ABNORMAL) POCT glucose (01/03/2023 5:45 AM CDT) GLUCOSE POC 129(H) 70 - 109 01/03/2023 6:17 AM CDT [facility] 01/03/2023 5:45 AM CDT Juanpablo Pandey MD POCT ORDERABLES - DEVICE Fin al Result Performing Organization Address [facility]/ZIP Co de Phone Number [facility] [address] [place] [address], [place] [phone] * RBC MORPHOLOGY (01/03/2023 4:51 AM CDT) Pathologist [facility] RBC MORPHOLOGY ANISOCYTOSIS 01/04/20 6:08 AM CDT [facility] Comment: SLIGHT HYPOCHROMASIA SLIGHT MICROCYTOSIS SLIGHT POIKILOCYTOSIS SLIGHT OVALOCYTES [employer] CELLS TEARDROP CELLS 01/03/2023 4:51 AM CDT Juanpablo Pandey MD LABORATORY Final Result Performing Organization Address [facility]/ZIP Co de Phone Number [facility] [address] [place] [address], [place] [phone] * (ABNORMAL) PROTIME/INR, VENOUS - Daily (01/03/2023 4:51 AM CDT) PROTIME 18.0(H) 9.4 - 12.5 SEC 01/03/2023 5:39 AM CDT [facility] INR 1.6(H) 0.8 - 1.1 01/03/2023 5:39 AM CDT [facility] 01/03/2023 4:51 AM CDT Juanpablo Pandey MD LABORATORY Final Result Performing Organization Address City/[facility]/ZIP Co de Phone Number [facility] [address] [place] [address], [phone] * (ABNORMAL) MAGNESIUM (01/03/2023 4:51 AM CDT) MAGNESIUM 2.7(H) 1.6 - 2.6 MG/DL 01/03/2023 5:42 AM CDT [facility] 01/03/2023 4:51 AM CDT Juanpablo Pandey MD LABORATORY Final Result Performing Organization Address [facility] Co de Phone Number [facility] [address] [place] [address], [phone] * (ABNORMAL) CBC W/DIFF AUTOMATED (01/03/2023 4:51 AM CDT) WBC 8.91 4.00 - 10.80 x10'3/uL 01/03/2023 5:17 AM CDT [facility] RBC 3.65(L) 4.50 - 6.10 x10'6/uL 01/03/2023 5:17 AM CDT [facility] HGB 8.5(L) 13.0 - 18.0 G/DL 01/03/2023 5:17 AM CDT [facility] HCT 29.8(L) 37.0 - 52.0 % 01/03/2023 5:17 AM CDT [facility] MCV 81.6 78.0 - 100.0 FL 01/03/2023 5:17 AM CDT [facility] MCH 23.3(L) 27.0 - 31.0 PG 01/03/2023 5:17 AM CDT [facility] MCHC 28.5(L) 33.0 - 36.0 G/DL 01/03/2023 5:17 AM CDT [facility] RDW 18.7(H) 11.5 - 14.5 % 01/03/2023 5:17 AM CDT [facility] PLT 158 150 - 350 x10'3/uL 01/03/2023 5:17 AM CDT [facility] MPV 10.0 7.4 - 10.4 FL 01/03/2023 5:17 AM CDT [facility] ABS. NEUTROPHILS 5.54 1.60 - 8.30 x10'3/uL 01/03/2023 5:17 AM CDT [facility] ABS. LYMPHOCYTES 1.65 0.80 - 4.70 x10'3/uL 01/03/2023 5:17 AM CDT [facility] ABS. MONOCYTES 1.29 0.00 - 1.50 x10'3/uL 01/03/2023 5:17 AM CDT [facility] ABS. EOSINOPHILS 0.31 0.00 - 0.40 x10'3/uL 01/03/2023 5:17 AM CDT [facility] ABS. BASOPHILS 0.07 0.00 - 0.20 x10'3/uL 01/03/2023 5:17 AM CDT [facility] ABS. IMMATURE GRANULOCYTES 0.05(H) 0.00 - 0.03 x10'3/uL 01/03/2023 5:17 AM CDT [facility] ABS. NUCLEATED RBC'S 0.00 0.0 x10'3/uL 01/03/2023 5:17 AM CDT [facility] 01/03/2023 4:51 AM CDT us Juanpablo Pandey MD LABORATORY Final Result [facility] [address] [place] [address], [phone] * (ABNORMAL) BASIC METABOLIC PANEL (01/03/2023 4:51 AM CDT) SODIUM S/P/B 130(L) 136 - 145 MMOL/L 01/03/2023 5:42 AM CDT [facility] POTASSIUM S/P/B 4.7 3.5 - 5.1 MMOL/L 01/03/2023 5:42 AM CDT [facility] CHLORIDE S/P/B 96(L) 98 - 107 MMOL/L 01/03/2023 5:42 AM CDT [facility] CO2 31.8 21.0 - 32.0 MMOL/L 01/03/2023 5:42 AM CDT [facility] GLUCOSE 112(H) 74 - 106 MG/DL 01/03/2023 5:42 AM CDT [facility] BUN 47(H) 7 - 18 MG/DL 01/03/2023 5:42 AM CDT [facility] CREATININE S/P/B 2.20(H) 0.70 - 1.30 MG/DL 01/03/2023 5:42 AM CDT [facility] CALCIUM S/P/B 9.6 8.5 - 10.1 MG/DL 01/03/2023 5:42 AM CDT [facility] ANION GAP 2.2(L) 5.0 - 15.0 MMOL/L 01/03/2023 5:42 AM CDT [facility] OSMOLALITY (CALC) 283 MOSM/KG 023 5:42 AM T [facility] Comment:REFERENCE RANGE NOT ESTABLISHED GFR ESTIMATE 32(L) >90 ML/MIN/1. 73 M2 01/03/2023 5:42 AM CDT [facility] GFR NOTES GFR REFERENCE S: 01/03/2023 5:42 AM CDT [facility] Comment: THE ESTIMATED GFR IS [...] Organization Address [facility] Co de Phone Number [facility] [address] [place] [address], [place] [phone] * (ABNORMAL) POCT glucose (01/02/2023 8:43 PM CDT) GLUCOSE POC 189(H) 70 - 109 01/02/2023 9:22 PM CDT [facility] 01/02/2023 8:43 PM CDT Juanpablo Pandey MD POCT ORDERABLES - DEVICE Fin al Result Performing Organization Address [facility] de Phone Number [facility] [address] [place] [address], [place] [phone] * (ABNORMAL) POCT glucose (01/02/2023 4:26 PM CDT) GLUCOSE POC 190(H) 70 - 109 01/02/2023 4:34 PM CDT [facility] 01/02/2023 4:26 PM CDT Juanpablo Pandey MD POCT ORDERABLES - DEVICE Fin al Result Performing Organization Address [facility] Co de Phone Number [facility] [address] [place] [address], [id number] * (ABNORMAL) POCT glucose (01/02/2023 11:33 AM CDT) GLUCOSE POC 175(H) 70 - 109 01/02/2023 11:37 AM CDT [facility] 01/02/2023 11:3 3 AM CDT Juanpablo Pandey MD POCT ORDERABLES - DEVICE Fin al Result Performing Organization Address City/[facility]/ZIP Co de Phone Number [facility] [address] [place] [address], [id number] * RBC MORPHOLOGY (01/02/2023 6:55 AM CDT) [facility] MORPHOLOGY POIKILOCYTOSIS 2022 8:13 AM CDT [facility] Comment: SLIGHT TEARDROP CELLS TARGET CELLS OVALOCYTES POLYCHROMASIA SLIGHT HYPOCHROMASIA MODERATE ANISOCYTOSIS SLIGHT MICROCYTOSIS SLIGHT 01/02/2023 6:55 AM CDT Juanpablo Pandey MD LABORATORY Final Result Performing Organization Address City/[facility]/ZIP Co de Phone Number [facility] [address] [place] [address], [id number] * (ABNORMAL) PROTIME/INR, VENOUS - Daily (01/02/2023 6:55 AM CDT) PROTIME 20.1(H) 9.4 - 12.5 SEC 01/02/2023 7:42 AM CDT [facility] INR 1.8(H) 0.8 - 1.1 01/02/2023 7:42 AM CDT [facility] 01/02/2023 6:55 AM CDT Juanpablo Pandey MD LABORATORY Final Result Performing Organization Address City/[facility]/ZIP Co de Phone Number [facility] [address] [place] [address], [id number] * MAGNESIUM (01/02/2023 6:55 AM CDT) MAGNESIUM 2.4 1.6 - 2.6 MG/DL 01/02/2023 7:46 AM CDT [facility] 01/02/2023 6:55 AM CDT Juanpablo Pandey MD LABORATORY Final Result Performing Organization Address [facility] Co de Phone Number [facility] [address] [place] [address], [phone] * (ABNORMAL) CBC W/DIFF AUTOMATED (01/02/2023 6:55 AM CDT) WBC 8.67 4.00 - 10.80 x10'3/uL 01/02/2023 7:39 AM CDT [facility] RBC 3.53(L) 4.50 - 6.10 x10'6/uL 01/02/2023 7:39 AM CDT [facility] HGB 8.1(L) 13.0 - 18.0 G/DL 01/02/2023 7:39 AM CDT [facility] HCT 28.3(L) 37.0 - 52.0 % 01/02/2023 7:39 AM CDT [facility] MCV 80.2 78.0 - 100.0 FL 01/02/2023 7:39 AM CDT [facility] MCH 22.9(L) 27.0 - 31.0 PG 01/02/2023 7:39 AM CDT [facility] MCHC 28.6(L) 33.0 - 36.0 G/DL 01/02/2023 7:39 AM CDT [facility] RDW 18.6(H) 11.5 - 14.5 % 01/02/2023 7:39 AM CDT [facility] PLT 169 150 - 350 x10'3/uL 01/02/2023 7:39 AM CDT [facility] MPV 10.1 7.4 - 10.4 FL 01/02/2023 7:39 AM CDT [facility] ABS. NEUTROPHILS 5.58 1.60 - 8.30 x10'3/uL 01/02/2023 7:39 AM CDT [facility] ABS. LYMPHOCYTES 1.40 0.80 - 4.70 x10'3/uL 01/02/2023 7:39 AM CDT [facility] ABS. MONOCYTES 1.26 0.00 - 1.50 x10'3/uL 01/02/2023 7:39 AM CDT [facility] ABS. EOSINOPHILS 0.32 0.00 - 0.40 x10'3/uL 01/02/2023 7:39 AM CDT [facility] ABS. BASOPHILS 0.07 0.00 - 0.20 x10'3/uL 01/02/2023 7:39 AM CDT [facility] ABS. IMMATURE GRANULOCYTES 0.04(H) 0.00 - 0.03 x10'3/uL 01/02/2023 7:39 AM CDT [facility] ABS. NUCLEATED RBC'S 0.00 0.0 x10'3/uL 01/02/2023 7:39 AM CDT [facility] 01/02/2023 6:55 AM CDT us Juanpablo Pandey MD LABORATORY Final Result [facility] [address] [place] [address], [phone] * (ABNORMAL) BASIC METABOLIC PANEL (01/02/2023 6:55 AM CDT) SODIUM S/P/B 131(L) 136 - 145 MMOL/L 01/02/2023 7:46 AM CDT [facility] POTASSIUM S/P/B 4.4 3.5 - 5.1 MMOL/L 01/02/2023 7:46 AM CDT [facility] CHLORIDE S/P/B 97(L) 98 - 107 MMOL/L 01/02/2023 7:46 AM CDT [facility] CO2 30.9 21.0 - 32.0 MMOL/L 01/02/2023 7:46 AM T [facility] GLUCOSE 125(H) 74 - 106 MG/DL 01/02/2023 7:46 AM T [facility] BUN 49(H) 7 - 18 MG/DL 01/02/2023 7:46 AM T [facility] CREATININE S/P/B 2.45(H) 0.70 - 1.30 MG/DL 01/02/2023 7:46 AM CDT [facility] CALCIUM S/P/B 9.4 8.5 - 10.1 MG/DL 01/02/2023 7:46 AM T [facility] ANION GAP 3.1(L) 5.0 - 15.0 MMOL/L 01/02/2023 7:46 AM T [facility] OSMOLALITY (CALC) 286 MOSM/KG 023 7:46 AM T [facility] Comment:REFERENCE RANGE NOT ESTABLISHED GFR ESTIMATE 28(L) >90 ML/MIN/1. 73 M2 01/02/2023 7:46 AM T [facility] GFR NOTES GFR REFERENCE S: 01/02/2023 7:46 AM T [facility] Comment: THE ESTIMATED GFR IS [...] MD LABORATORY Final Result Performing Organization Address City/[facility]/ZIP Co de Phone Number [facility] [address] [place] [address], [place] [phone] * (ABNORMAL) POCT glucose (01/02/2023 6:26 AM CDT) GLUCOSE POC 147(H) 70 - 109 01/02/2023 6:36 AM CDT [facility] 01/02/2023 6:26 AM CDT Juanpablo Pandey MD POCT ORDERABLES - DEVICE Fin al Result Performing Organization Address [facility] Co de Phone Number [facility] [address] [place] [address], [place] [phone] * CULTURE RESPIRATORY W/ GRAM STAIN (01/02/2023 1:14 AM CDT) SPEC DESCRIPTION SPUTUM, EXPECTORATED 01/02/2023 1:14 AM CDT [facility] SPECIAL REQUESTS NO SPECIAL REQUEST 01/02/2023 1:14 AM CDT [facility] GRAM STAIN RESULT SMEAR SUGGESTS ORAL CONTAMINATION, PLEASE RECOLLECT SPECIMEN AND REORDER 01/02/2023 2:25 AM CDT [facility] CULTURE RESULT CULTURE NOT PERFORMED. ??SPECIMEN CONTAINS EXCESS EPITHELIAL CELLS WHICH COULD REPRESENT OROPHARYNGEAL CONTAMINATION. ?? RESULTS SHOULD BE INTERPRETED BASED ON CLINICAL CIRCUMSTANCE. PATIENT CARE AREA NOTIFIED. 01/02/2023 2:25 AM CDT [facility] SPUTUM SPECIMEN / Unknown 01/02/2023 1:14 AM CDT 01/02/2023 1:32 AM CDT Juanpablo Pandey MD MICROBIOLOGY - GENERAL ORDER BAKARI Final Result Performing Organization Address City/[facility] Co de Phone Number [facility] [address] [place] [address], [place] [phone] * (ABNORMAL) POCT glucose (01/01/2023 7:51 PM CDT) GLUCOSE POC 186(H) 70 - 109 01/01/2023 8:44 PM CDT [facility] 01/01/2023 7:51 PM CDT Juanpablo Pandey MD POCT ORDERABLES - DEVICE Fin al Result Performing Organization Address [facility] Co de Phone Number [facility] [address] [place] [address], [place] [phone] * (ABNORMAL) POCT glucose (01/01/2023 5:12 PM CDT) GLUCOSE POC 180(H) 70 - 109 01/01/2023 11:13 PM CDT [facility] 01/01/2023 5:12 PM CDT Juanpablo Pandey MD POCT ORDERABLES - DEVICE Fin al Result Performing Organization Address [facility] Co de Phone Number [facility] [address] [place] [address], [place] [phone] * (ABNORMAL) POCT glucose (01/01/2023 11:41 AM CDT) Pathologist [facility] GLUCOSE POC 196(H) 70 - 109 01/01/2023 11:47 AM CDT [facility] 01/01/2023 11:4 1 AM CDT us Juanpablo Pandey MD POCT ORDERABLES - DEVICE Fin al Result Performing Organization Address [facility] Co de Phone Number [facility] [address] [place] [address], [place] [phone] * RBC MORPHOLOGY (01/01/2023 9:44 AM CDT) [facility] RBC MORPHOLOGY POLYCHROMASIA 023 10:17 AM CDT [facility] Comment: SLIGHT POIKILOCYTOSIS SLIGHT OVALOCYTES TARGET CELLS ACANTHOCYTES ANISOCYTOSIS SLIGHT HYPOCHROMASIA MODERATE MICROCYTOSIS SLIGHT 01/01/2023 9:44 AM CDT Juanpablo Pandey MD LABORATORY Final Result Performing Organization Address [facility] Co de Phone Number [facility] [address] [place] [address], [place] [phone] * MAGNESIUM (01/01/2023 9:44 AM CDT) Pathologist [facility] MAGNESIUM 2.5 1.6 - 2.6 MG/DL 01/01/2023 10:21 AM CDT [facility] 01/01/2023 9:44 AM CDT us Juanpablo Pandey MD LABORATORY Final Result Performing Organization Address [facility] Co de Phone Number [facility] [address] [place] [address], [place] [phone] * (ABNORMAL) CBC W/DIFF AUTOMATED (01/01/2023 9:44 AM CDT) [facility] WBC 8.66 4.00 - 10.80 x10'3/uL 01/01/2023 9:55 AM CDT [facility] RBC 3.61(L) 4.50 - 6.10 x10'6/uL 01/01/2023 9:55 AM CDT [facility] HGB 8.3(L) 13.0 - 18.0 G/DL 01/01/2023 9:55 AM CDT [facility] HCT 29.2(L) 37.0 - 52.0 % 01/01/2023 9:55 AM CDT [facility] MCV 80.9 78.0 - 100.0 FL 01/01/2023 9:55 AM CDT [facility] MCH 23.0(L) 27.0 - 31.0 PG 01/01/2023 9:55 AM CDT [facility] MCHC 28.4(L) 33.0 - 36.0 G/DL 01/01/2023 9:55 AM CDT [facility] RDW 18.7(H) 11.5 - 14.5 % 01/01/2023 9:55 AM CDT [facility] PLT 182 150 - 350 x10'3/uL 01/01/2023 9:55 AM CDT [facility] MPV 10.1 7.4 - 10.4 FL 01/01/2023 9:55 AM CDT [facility] ABS. NEUTROPHILS 6.23 1.60 - 8.30 x10'3/uL 01/01/2023 9:55 AM CDT [facility] ABS. LYMPHOCYTES 0.90 0.80 - 4.70 x10'3/uL 01/01/2023 9:55 AM CDT [facility] ABS. MONOCYTES 1.10 0.00 - 1.50 x10'3/uL 01/01/2023 9:55 AM CDT [facility] ABS. EOSINOPHILS 0.32 0.00 - 0.40 x10'3/uL 01/01/2023 9:55 AM CDT [facility] ABS. BASOPHILS 0.07 0.00 - 0.20 x10'3/uL 01/01/2023 9:55 AM CDT [facility] ABS. IMMATURE GRANULOCYTES 0.04(H) 0.00 - 0.03 x10'3/uL 01/01/2023 9:55 AM CDT [facility] ABS. NUCLEATED RBC'S 0.00 0.0 x10'3/uL 01/01/2023 9:55 AM CDT [facility] 01/01/2023 9:44 AM CDT Juanpablo Paresh Pandey MD LABORATORY Final Result [facility] [address] [place] [phone], [phone] * (ABNORMAL) BASIC METABOLIC PANEL (01/01/2023 9:44 AM CDT) SODIUM S/P/B 131(L) 136 - 145 MMOL/L 01/01/2023 10:21 AM CDT [facility] POTASSIUM S/P/B 4.5 3.5 - 5.1 MMOL/L 01/01/2023 10:21 AM CDT [facility] CHLORIDE S/P/B 97(L) 98 - 107 MMOL/L 01/01/2023 10:21 AM CDT [facility] CO2 30.1 21.0 - 32.0 MMOL/L 01/01/2023 10:21 AM CDT [facility] GLUCOSE 191(H) 74 - 106 MG/DL 01/01/2023 10:21 AM CDT [facility] BUN 41(H) 7 - 18 MG/DL 01/01/2023 10:21 AM CDT [facility] CREATININE S/P/B 2.25(H) 0.70 - 1.30 MG/DL 01/01/2023 10:21 AM CDT [facility] CALCIUM S/P/B 9.2 8.5 - 10.1 MG/DL 01/01/2023 10:21 AM CDT [facility] ANION GAP 3.9(L) 5.0 - 15.0 MMOL/L 01/01/2023 10:21 AM CDT [facility] OSMOLALITY (CALC) 287 MOSM/KG 023 10:21 AM T [facility] Comment:REFERENCE RANGE NOT ESTABLISHED GFR ESTIMATE 31(L) >90 ML/MIN/1. 73 M2 01/01/2023 10:21 AM CDT [facility] GFR NOTES GFR REFERENCE S: 01/01/2023 10:21 AM T [facility] Comment: THE ESTIMATED GFR IS [...] us Juanpablo Pandey MD LABORATORY Final Result [facility] [address] [place] [address], [phone] * (ABNORMAL) POCT glucose (01/01/2023 6:15 AM CDT) GLUCOSE POC 137(H) 70 - 109 01/01/2023 6:49 AM CDT [facility] 01/01/2023 6:15 AM CDT us Juanpablo Pandey MD POCT ORDERABLES - DEVICE Fin al Result Performing Organization Address [facility] Co de Phone Number [facility] [address] [place] [address], [place] [phone] * (ABNORMAL) PROTIME/INR, VENOUS - Daily (01/01/2023 4:56 AM CDT) PROTIME 23.5(H) 9.4 - 12.5 SEC 01/01/2023 5:44 AM CDT [facility] INR 2.1(H) 0.8 - 1.1 01/01/2023 5:44 AM CDT [facility] 01/01/2023 4:56 AM CDT us Juanpablo Pandey MD LABORATORY Final Result Performing Organization Address [facility] de Phone Number [facility] [address] [place] [address], [place] [phone] * (ABNORMAL) POCT glucose (12/31/2022 7:49 PM CDT) GLUCOSE POC 186(H) 70 - 109 12/31/2022 8:39 PM CDT [facility] 12/31/2022 7:49 PM CDT us Juanpablo Pandey MD POCT ORDERABLES - DEVICE Fin al Result Performing Organization Address [facility] Co de Phone Number [facility] [address] [place] [address], [place] [phone] * (ABNORMAL) POCT glucose (12/31/2022 4:48 PM CDT) GLUCOSE POC 180(H) 70 - 109 12/31/2022 4:50 PM CDT [facility] 12/31/2022 4:48 PM CDT Juanpablo Pandey MD POCT ORDERABLES - DEVICE Fin al Result Performing Organization Address City/[facility]/ZIP Co de Phone Number [facility] [address] [place] [address], [place] [phone] * (ABNORMAL) POCT glucose (12/31/2022 11:31 AM CDT) GLUCOSE POC 159(H) 70 - 109 12/31/2022 11:37 AM CDT [facility] 12/31/2022 11:3 1 AM CDT Juanpablo Pandey MD POCT ORDERABLES - DEVICE Fin al Result Performing Organization Address [facility] Co de Phone Number [facility] [address] [place] [address], [place] [phone] * (ABNORMAL) POCT glucose (12/31/2022 6:23 AM CDT) GLUCOSE POC 167(H) 70 - 109 12/31/2022 6:25 AM CDT [facility] 12/31/2022 6:23 AM CDT us Juanpablo Pandey MD POCT ORDERABLES - DEVICE Fin al Result Performing Organization Address City/[facility] Co de Phone Number [facility] [address] [place] [address], [place] [phone] * RBC MORPHOLOGY (12/31/2022 5:28 AM CDT) RBC MORPHOLOGY ANISOCYTOSIS 01/01/20 7:03 AM CDT [facility] Comment: SLIGHT HYPOCHROMASIA SLIGHT POIKILOCYTOSIS SLIGHT OVALOCYTES ACANTHOCYTES TARGET CELLS 12/31/2022 5:28 AM CDT Juanpablo Pandey MD LABORATORY Final Result Performing Organization Address [facility]/ZIP Co de Phone Number [facility] [address] [place] [address], [phone] * (ABNORMAL) PROTIME/INR, VENOUS - Daily (12/31/2022 5:28 AM CDT) Pathologist [facility] PROTIME 28.0(H) 9.4 - 12.5 SEC 12/31/2022 6:24 AM CDT [facility] INR 2.4(H) 0.8 - 1.1 12/31/2022 6:24 AM CDT [facility] 12/31/2022 5:28 AM CDT Juanpablo Pandey MD LABORATORY Final Result Performing Organization Address [facility] Co de Phone Number [facility] [address] [place] [address], [phone] * MAGNESIUM (12/31/2022 5:28 AM CDT) Pathologist [facility] MAGNESIUM 2.4 1.6 - 2.6 MG/DL 12/31/2022 6:27 AM CDT [facility] 12/31/2022 5:28 AM CDT Juanpablo Pandey MD LABORATORY Final Result Performing Organization Address [facility]/ZIP Co de Phone Number [facility] [address] [place] [address], [phone] * (ABNORMAL) CBC W/DIFF AUTOMATED (12/31/2022 5:28 AM CDT) [facility] WBC 7.90 4.00 - 10.80 x10'3/uL 12/31/2022 5:46 AM CDT [facility] RBC 3.63(L) 4.50 - 6.10 x10'6/uL 12/31/2022 5:46 AM CDT [facility] HGB 8.3(L) 13.0 - 18.0 G/DL 12/31/2022 5:46 AM CDT [facility] HCT 29.3(L) 37.0 - 52.0 % 12/31/2022 5:46 AM CDT [facility] MCV 80.7 78.0 - 100.0 FL 12/31/2022 5:46 AM CDT [facility] MCH 22.9(L) 27.0 - 31.0 PG 12/31/2022 5:46 AM CDT [facility] MCHC 28.3(L) 33.0 - 36.0 G/DL 12/31/2022 5:46 AM CDT [facility] RDW 18.3(H) 11.5 - 14.5 % 12/31/2022 5:46 AM CDT [facility] PLT 183 150 - 350 x10'3/uL 12/31/2022 5:46 AM CDT [facility] MPV 10.5(H) 7.4 - 10.4 FL 12/31/2022 5:46 AM CDT [facility] ABS. NEUTROPHILS 5.15 1.60 - 8.30 x10'3/uL 12/31/2022 5:46 AM CDT [facility] ABS. LYMPHOCYTES 1.14 0.80 - 4.70 x10'3/uL 12/31/2022 5:46 AM CDT [facility] ABS. MONOCYTES 1.19 0.00 - 1.50 x10'3/uL 12/31/2022 5:46 AM CDT [facility] ABS. EOSINOPHILS 0.32 0.00 - 0.40 x10'3/uL 12/31/2022 5:46 AM CDT [facility] ABS. BASOPHILS 0.07 0.00 - 0.20 x10'3/uL 12/31/2022 5:46 AM CDT [facility] ABS. IMMATURE GRANULOCYTES 0.03 0.00 - 0.03 x10'3/uL 12/31/2022 5:46 AM CDT [facility] ABS. NUCLEATED RBC'S 0.00 0.0 x10'3/uL 12/31/2022 5:46 AM CDT [facility] 12/31/2022 5:28 AM CDT Juanpablo Paresh Pandey MD LABORATORY Final Result [facility] [address] [place] [address], [phone] * (ABNORMAL) BASIC METABOLIC PANEL (12/31/2022 5:28 AM CDT) SODIUM S/P/B 132(L) 136 - 145 MMOL/L 12/31/2022 6:27 AM CDT [facility] POTASSIUM S/P/B 4.1 3.5 - 5.1 MMOL/L 12/31/2022 6:27 AM CDT [facility] CHLORIDE S/P/B 99 98 - 107 MMOL/L 12/31/2022 6:27 AM CDT [facility] CO2 29.5 21.0 - 32.0 MMOL/L 12/31/2022 6:27 AM CDT [facility] GLUCOSE 120(H) 74 - 106 MG/DL 12/31/2022 6:27 AM CDT [facility] BUN 37(H) 7 - 18 MG/DL 12/31/2022 6:27 AM CDT [facility] CREATININE S/P/B 2.15(H) 0.70 - 1.30 MG/DL 12/31/2022 6:27 AM CDT [facility] CALCIUM S/P/B 8.9 8.5 - 10.1 MG/DL 12/31/2022 6:27 AM CDT [facility] ANION GAP 3.5(L) 5.0 - 15.0 MMOL/L 12/31/2022 6:27 AM CDT [facility] OSMOLALITY (CALC) 284 MOSM/KG 023 6:27 AM CDT [facility] Comment:REFERENCE RANGE NOT ESTABLISHED GFR ESTIMATE 33(L) >90 ML/MIN/1. 73 M2 12/31/2022 6:27 AM CDT [facility] GFR NOTES GFR REFERENCE S: 12/31/2022 6:27 AM CDT [facility] Comment: THE ESTIMATED GFR IS [...] CDT Juanpablo Pandey MD LABORATORY Final Result [facility] [address] [place] [address], [phone] * (ABNORMAL) POCT glucose (12/30/2022 8:12 PM CDT) GLUCOSE POC 202(H) 70 - 109 12/30/2022 9:31 PM CDT [facility] 12/30/2022 8:12 PM CDT us Juanpablo Pandey MD POCT ORDERABLES - DEVICE Fin al Result Performing Organization Address City/[facility]/ZIP Co de Phone Number [facility] [address] [place] [address], [phone] * (ABNORMAL) POCT glucose (12/30/2022 4:59 PM CDT) GLUCOSE POC 180(H) 70 - 109 12/30/2022 5:04 PM CDT [facility] 12/30/2022 4:59 PM CDT us Juanpablo Pandey MD POCT ORDERABLES - DEVICE Fin al Result Performing Organization Address [email or web address]] de Phone Number [facility] [address] [place] [address], [place] [phone] * (ABNORMAL) POCT glucose (12/30/2022 11:22 AM CDT) GLUCOSE POC 155(H) 70 - 109 12/30/2022 11:30 AM CDT [facility] 12/30/2022 11:2 2 AM CDT us Juanpablo Pandey MD POCT ORDERABLES - DEVICE Fin al Result Performing Organization Address [facility] Co de Phone Number [facility] [address] [place] [address], [place] [phone] * RBC MORPHOLOGY (12/30/2022 10:34 AM CDT) RBC MORPHOLOGY POLYCHROMASIA 023 2:02 PM CDT [facility] Comment: SLIGHT ANISOCYTOSIS MODERATE MICROCYTOSIS SLIGHT MACROCYTOSIS SLIGHT HYPOCHROMASIA SLIGHT POIKILOCYTOSIS SLIGHT OVALOCYTES ACANTHOCYTES TEARDROP CELLS 12/30/2022 10:3 4 AM CDT Juanpablo Pandey MD LABORATORY Final Result Performing Organization Address [facility] Co de Phone Number [facility] [address] [place] [address], [phone] * MAGNESIUM (12/30/2022 10:34 AM CDT) MAGNESIUM 2.4 1.6 - 2.6 MG/DL 12/30/2022 11:26 AM CDT [facility] 12/30/2022 10:3 4 AM CDT Juanpablo Pandey MD LABORATORY Final Result Performing Organization Address [facility] [place]/[facility] [[email or web address]] de Phone Number [facility] [address] [place] [address], [phone] * (ABNORMAL) BASIC METABOLIC PANEL (12/30/2022 10:34 AM CDT) SODIUM S/P/B 131(L) 136 - 145 MMOL/L 12/30/2022 11:26 AM CDT [facility] POTASSIUM S/P/B 4.2 3.5 - 5.1 MMOL/L 12/30/2022 11:26 AM CDT [facility] CHLORIDE S/P/B 101 98 - 107 MMOL/L 12/30/2022 11:26 AM CDT [facility] CO2 23.9 21.0 - 32.0 MMOL/L 12/30/2022 11:26 AM CDT [facility] GLUCOSE 125(H) 74 - 106 MG/DL 12/30/2022 11:26 AM CDT [facility] BUN 34(H) 7 - 18 MG/DL 12/30/2022 11:26 AM CDT [facility] CREATININE S/P/B 1.98(H) 0.70 - 1.30 MG/DL 12/30/2022 11:26 AM CDT [facility] CALCIUM S/P/B 9.2 8.5 - 10.1 MG/DL 12/30/2022 11:26 AM CDT [facility] ANION GAP 6.1 5.0 - 15.0 MMOL/L 12/30/2022 11:26 AM CDT [facility] OSMOLALITY (CALC) 281 MOSM/KG 023 11:26 AM T [facility] Comment:REFERENCE RANGE NOT ESTABLISHED GFR ESTIMATE 36(L) >90 ML/MIN/1. 73 M2 12/30/2022 11:26 AM CDT [facility] GFR NOTES GFR REFERENCE S: 12/30/2022 11:26 AM T [facility] Comment: THE ESTIMATED GFR IS [...] us Juanpablo Pandey MD LABORATORY Final Result [facility] [address] [place] [address], [id number] * (ABNORMAL) CBC W/DIFF AUTOMATED (12/30/2022 10:34 AM CDT) [facility] WBC 8.66 4.00 - 10.80 x10'3/uL 12/30/2022 11:09 AM CDT [facility] RBC 3.66(L) 4.50 - 6.10 x10'6/uL 12/30/2022 11:09 AM CDT [facility] HGB 8.6(L) 13.0 - 18.0 G/DL 12/30/2022 11:09 AM CDT [facility] HCT 30.3(L) 37.0 - 52.0 % 12/30/2022 11:09 AM CDT [facility] MCV 82.8 78.0 - 100.0 FL 12/30/2022 11:09 AM CDT [facility] MCH 23.5(L) 27.0 - 31.0 PG 12/30/2022 11:09 AM CDT [facility] MCHC 28.4(L) 33.0 - 36.0 G/DL 12/30/2022 11:09 AM CDT [facility] RDW 18.6(H) 11.5 - 14.5 % 12/30/2022 11:09 AM CDT [facility] PLT 174 150 - 350 x10'3/uL 12/30/2022 11:09 AM CDT [facility] MPV 10.4 7.4 - 10.4 FL 12/30/2022 11:09 AM CDT [facility] ABS. NEUTROPHILS 6.07 1.60 - 8.30 x10'3/uL 12/30/2022 11:09 AM CDT [facility] ABS. LYMPHOCYTES 0.97 0.80 - 4.70 x10'3/uL 12/30/2022 11:09 AM CDT [facility] ABS. MONOCYTES 1.18 0.00 - 1.50 x10'3/uL 12/30/2022 11:09 AM CDT [facility] ABS. EOSINOPHILS 0.29 0.00 - 0.40 x10'3/uL 12/30/2022 11:09 AM CDT [facility] ABS. BASOPHILS 0.11 0.00 - 0.20 x10'3/uL 12/30/2022 11:09 AM CDT [facility] ABS. IMMATURE GRANULOCYTES 0.04(H) 0.00 - 0.03 x10'3/uL 12/30/2022 11:09 AM CDT [facility] ABS. NUCLEATED RBC'S 0.00 0.0 x10'3/uL 12/30/2022 11:09 AM CDT [facility] 12/30/2022 10:3 4 AM CDT us Juanpablo Pandey MD LABORATORY Final Result [facility] [address] [place] [address], [phone] * POCT glucose (12/30/2022 5:58 AM CDT) GLUCOSE POC 91 70 - 109 12/30/2022 11:30 AM CDT [facility] 12/30/2022 5:58 AM CDT us Juanpablo Pandey MD POCT ORDERABLES - DEVICE Fin al Result Performing Organization Address City/[facility]/ZIP Co de Phone Number [facility] [address] [place] [address], [phone] * (ABNORMAL) POCT glucose (12/30/2022 5:10 AM CDT) GLUCOSE POC 64(L) 70 - 109 12/30/2022 5:56 AM CDT [facility] 12/30/2022 5:10 AM CDT Juanpablo Pandey MD POCT ORDERABLES - DEVICE Fin al Result Performing Organization Address [facility] [place]/[facility]/ZIP Co de Phone Number [facility] [address] [place] [address], [phone] * (ABNORMAL) PROTIME/INR, VENOUS - Daily (12/30/2022 5:01 AM CDT) PROTIME 33.3(H) 9.4 - 12.5 SEC 12/30/2022 6:15 AM CDT [facility] INR 2.9(H) 0.8 - 1.1 12/30/2022 6:15 AM CDT [facility] 12/30/2022 5:01 AM CDT Juanpablo Pandey MD LABORATORY Final Result Performing Organization Address [facility] Co de Phone Number [facility] [address] [place] [address], [phone] * Vancomycin Random Level (12/30/2022 5:01 AM CDT) VANCOMYCIN RANDOM 23.7 MCG/ML 12/30/2022 6:22 AM CDT [facility] Comment:REFERENCE RANGE NOT ESTABLISHED 12/30/2022 5:01 AM CDT Juanpablo Pandey MD LABORATORY Final Result Performing Organization Address [facility] Co de Phone Number [facility] [address] [place] [address], [phone] * (ABNORMAL) POCT glucose (12/29/2022 7:54 PM CDT) GLUCOSE POC 178(H) 70 - 109 12/29/2022 8:29 PM CDT [facility] 12/29/2022 7:54 PM CDT Juanpablo Pandey MD POCT ORDERABLES - DEVICE Fin al Result Performing Organization Address [facility] [[email or web address]] de Phone Number [facility] [address] [place] [address], [phone] * POCT glucose (12/29/2022 3:55 PM CDT) GLUCOSE POC 70 70 - 109 12/29/2022 4:10 PM CDT [facility] 12/29/2022 3:55 PM CDT Juanpablo Pandey MD POCT ORDERABLES - DEVICE Fin al Result Performing Organization Address [facility] [[email or web address]] de Phone Number [facility] [address] [place] [address], [phone] * USE ECHOCARDIOGRAM W CON (12/29/2022 11:54 AM CDT) Anatomical Region Laterality Modality NA Echocardiogram 12/29/2022 9:47 AM CDT Narrative 12/29/2022 6:02 PM CDT ?Echocardiography Report Pat.Name: ??OBIE SIMS ?Pat.ID: ?[id number] ? St.Date: ?? 12/29/2022 ?Refer.MD: ??JUANPABLO PANDEY [...] ?? Value ?227 g ? LV Mass [id number] ?? Value ?108 g/m2 ? Right Ventricle [...] 12/30/2022 Echocardiography Report Pat.Name: OBIE SIMS Pat.ID: [id number] .Date: 12/29/2022 Refer.MD: JUANPABLO PANDEY Exam Time: 9:47:00 AM Study Type:ECHO WITH CARDIAC DOPPLER COMP Height: 66 in Weight: 226 lb BSA: 2.11 m2 Age: 12 1955,67Y Sex: M BP: 112/64 HR: 91 bpm Sonogrphr: Britney Alfonso [facility] Pat. Stat.:Inpatient Room: 484 Procedures: 2D, M-mode, [...] Mass 2D Value 227 g LV Mass [id number] Value 108 g/m2 Right Ventricle Right Ventricle [...] 70 - 109 12/29/2022 11:29 AM CDT [facility] 12/29/2022 11:1 1 AM CDT Juanpablo Pandey MD POCT ORDERABLES - DEVICE Fin al Result Performing Organization Address [facility] [[email or web address]] de Phone Number [facility] [address] [place] [address], [id number] * POCT glucose (12/29/2022 8:11 AM CDT) GLUCOSE POC 103 70 - 109 12/29/2022 8:13 AM CDT [facility] 12/29/2022 8:11 AM CDT Juanpablo Pandey MD POCT ORDERABLES - DEVICE Fin al Result Performing Organization Address [facility] Co de Phone Number [facility] [address] [place] [address], [phone] * (ABNORMAL) POCT glucose (12/29/2022 6:47 AM CDT) GLUCOSE POC 63(L) 70 - 109 12/29/2022 6:52 AM CDT [facility] 12/29/2022 6:47 AM CDT Juanpablo Pandey MD POCT ORDERABLES - DEVICE Fin al Result Performing Organization Address [facility] Co de Phone Number [facility] [address] [place] [address], [phone] * CULTURE URINE (12/29/2022 6:33 AM CDT) SPEC DESCRIPTION URINE CLEAN CATCH 12/29/2022 6:34 AM CDT [facility] SPECIAL REQUESTS NO SPECIAL REQUEST 12/29/2022 6:34 AM CDT [facility] CULTURE RESULT NO GROWTH (< OR = 1,000 CFU/ML) 12/30/2022 12:00 PM CDT [facility] URINE SPECIMEN OBTAINED BY CLEAN CATCH PROCEDURE / Unknown 12/29/2022 6:33 AM CDT 12/29/2022 6:45 AM CDT Eveline Jacinto NP MICROBIOLOGY - GENERAL ORDERABLES Final Result Performing Organization Address City/[facility]/ZIP Co de Phone Number [facility] [address] [place] [address], [phone] * (ABNORMAL) POCT glucose (12/29/2022 6:29 AM CDT) GLUCOSE POC 52(L) 70 - 109 12/29/2022 6:36 AM CDT [facility] 12/29/2022 6:29 AM CDT us Juanpablo Parehs Pandey MD POCT ORDERABLES - DEVICE Fin al Result [facility] [address] [place] [address], [place] [phone] * (ABNORMAL) URINALYSIS (12/29/2022 6:23 AM CDT) COLOR (U) LIGHT YELLOW 12/29/2022 7:01 AM CDT [facility] TRANSPARENCY CLEAR 12/29/2022 7:01 AM CDT [facility] SPECIFIC GRAVITY (U) 1.014 1.002 - 1.035 12/29/2022 7:01 AM CDT [facility] U PH 5.0 5 - 8 12/29/2022 7:01 AM CDT [facility] PROTEIN (U) NEGATIVE NEGATIVE 12/29/2022 7:01 AM CDT [facility] URINE GLUCOSE 200(A) NEGATIVE MG/DL 12/29/2022 7:01 AM CDT [facility] KETONES MG/DL (U) NEGATIVE NEGATIVE 12/29/2022 7:01 AM CDT [facility] BILIRUBIN (U) NEGATIVE NEGATIVE 12/29/2022 7:01 AM CDT [facility] BLOOD (U) NEGATIVE NEGATIVE 12/29/2022 7:01 AM CDT [facility] NITRITES NEGATIVE NEGATIVE 12/29/2022 7:01 AM CDT [facility] UROBILINOGEN NORMAL 0 - 1 EU/DL 12/29/2022 7:01 AM CDT [facility] LEUKOCYTES (U) 1+(A) NEGATIVE 12/29/2022 7:01 AM CDT [facility] RBC/HPF <1 0 - 3 /HPF 12/29/2022 7:01 AM CDT [facility] WBC/HPF 1 0 - 6 /HPF 12/29/2022 7:01 AM CDT [facility] BACTERIA (U) NONE /HPF 12/29/2022 7:01 AM CDT [facility] SQUAMOUS EPITHELIALS 1 12/29/2022 7:01 AM CDT [facility] URINE SPECIMEN OBTAINED BY CLEAN CATCH PROCEDURE / Unknown 12/29/2022 6:23 AM CDT Eveline Jacinto NP URINE ORDERABLES Final Result Performing Organization Address [facility] Co de Phone Number [facility] [address] [place] [address], [phone] * (ABNORMAL) PROTIME/INR, VENOUS - Daily (12/29/2022 4:03 AM CDT) PROTIME 33.9(H) 9.4 - 12.5 SEC 12/29/2022 5:19 AM CDT [facility] INR 2.9(H) 0.8 - 1.1 12/29/2022 5:19 AM CDT [facility] 12/29/2022 4:0 3 AM CDT Juanpablo Pandey MD LABORATORY Final Result Performing Organization Address [facility] Co de Phone Number [facility] [address] [place] [address], [phone] * (ABNORMAL) THYROID STIM HORMONE, TSH (12/29/2022 4:03 AM CDT) TSH 4.900(H) 0.358 - 3.740 uIU/ML 12/29/2022 5:46 AM CDT [facility] Comment: ASSAY PERFORMED BY CHEMILUMINESCENCE METHODOLOGY USING SIEM[employer]. PATIENT RESULTS DETERMINED BY ASSAYS USING DIFFERENT MANUFACTURERS FOR METHODS MAY NOT BE COMPARABLE. 12/29/2022 4:03 AM CDT Juanpablo Pandey MD LABORATORY Final Result [facility] [address] [place] [address], [phone] * MAGNESIUM (12/29/2022 4:03 AM CDT) MAGNESIUM 2.4 1.6 - 2.6 MG/DL 12/29/2022 5:46 AM CDT [facility] 12/29/2022 4:03 AM CDT Juanpablo Pandey MD LABORATORY Final Result Performing Organization Address [facility] Co de Phone Number [facility] [address] [place] [address], [phone] * (ABNORMAL) BASIC METABOLIC PANEL (12/29/2022 4:03 AM CDT) SODIUM S/P/B 134(L) 136 - 145 MMOL/L 12/29/2022 5:46 AM CDT [facility] POTASSIUM S/P/B 4.6 3.5 - 5.1 MMOL/L 12/29/2022 5:46 AM CDT [facility] CHLORIDE S/P/B 102 98 - 107 MMOL/L 12/29/2022 5:46 AM CDT [facility] CO2 24.4 21.0 - 32.0 MMOL/L 12/29/2022 5:46 AM CDT [facility] GLUCOSE 59(L) 74 - 106 MG/DL 12/29/2022 5:46 AM CDT [facility] BUN 34(H) 7 - 18 MG/DL 12/29/2022 5:46 AM CDT [facility] CREATININE S/P/B 2.06(H) 0.70 - 1.30 MG/DL 12/29/2022 5:46 AM CDT [facility] CALCIUM S/P/B 9.3 8.5 - 10.1 MG/DL 12/29/2022 5:46 AM CDT [facility] ANION GAP 7.6 5.0 - 15.0 MMOL/L 12/29/2022 5:46 AM CDT [facility] OSMOLALITY (CALC) 283 MOSM/KG 023 5:46 AM CDT [facility] Comment:REFERENCE RANGE NOT ESTABLISHED GFR ESTIMATE 34(L) >90 ML/MIN/1. 73 M2 12/29/2022 5:46 AM CDT [facility] GFR NOTES GFR REFERENCE S: 12/29/2022 5:46 AM CDT [facility] Comment: THE ESTIMATED GFR IS [...] CDT Juanpablo Pandey MD LABORATORY Final Result [facility] [address] [place] [address], [phone] * (ABNORMAL) CBC W/DIFF AUTOMATED (12/29/2022 4:03 AM CDT) WBC 8.73 4.00 - 10.80 x10'3/uL 12/29/2022 4:58 AM CDT [facility] RBC 3.64(L) 4.50 - 6.10 x10'6/uL 12/29/2022 4:58 AM CDT [facility] HGB 8.4(L) 13.0 - 18.0 G/DL 12/29/2022 4:58 AM CDT [facility] HCT 29.0(L) 37.0 - 52.0 % 12/29/2022 4:58 AM CDT [facility] MCV 79.7 78.0 - 100.0 FL 12/29/2022 4:58 AM CDT [facility] MCH 23.1(L) 27.0 - 31.0 PG 12/29/2022 4:58 AM CDT [facility] MCHC 29.0(L) 33.0 - 36.0 G/DL 12/29/2022 4:58 AM CDT [facility] RDW 18.1(H) 11.5 - 14.5 % 12/29/2022 4:58 AM CDT [facility] PLT 174 150 - 350 x10'3/uL 12/29/2022 4:58 AM CDT [facility] MPV 10.5(H) 7.4 - 10.4 FL 12/29/2022 4:58 AM CDT [facility] ABS. NEUTROPHILS 5.57 1.60 - 8.30 x10'3/uL 12/29/2022 4:58 AM CDT [facility] ABS. LYMPHOCYTES 1.36 0.80 - 4.70 x10'3/uL 12/29/2022 4:58 AM CDT [facility] ABS. MONOCYTES 1.42 0.00 - 1.50 x10'3/uL 12/29/2022 4:58 AM CDT [facility] ABS. EOSINOPHILS 0.25 0.00 - 0.40 x10'3/uL 12/29/2022 4:58 AM CDT [facility] ABS. BASOPHILS 0.11 0.00 - 0.20 x10'3/uL 12/29/2022 4:58 AM CDT [facility] ABS. IMMATURE GRANULOCYTES 0.02 0.00 - 0.03 x10'3/uL 12/29/2022 4:58 AM CDT [facility] ABS. NUCLEATED RBC'S 0.00 0.0 x10'3/uL 12/29/2022 4:58 AM CDT [facility] 12/29/2022 4:03 AM CDT us Juanpablo Pandey MD LABORATORY Final Result Performing Organization Address [facility] Co de Phone Number [facility] [address] [place] [address], [phone] * POCT glucose (12/28/2022 11:10 PM CDT) GLUCOSE POC 101 70 - 109 12/28/2022 11:11 PM CDT [facility] 12/28/2022 11:1 0 PM CDT Juanpablo Pandey MD POCT ORDERABLES - DEVICE Fin al Result Performing Organization Address [facility] [[email or web address]] de Phone Number [facility] [address] [place] [address], [place] [phone] * POCT glucose (12/28/2022 10:10 PM CDT) GLUCOSE POC 80 70 - 109 12/28/2022 10:12 PM CDT [facility] 12/28/2022 10:1 0 PM CDT us Juanpablo Pandey MD POCT ORDERABLES - DEVICE Fin al Result Performing Organization Address [facility] Co de Phone Number [facility] [address] [place] [address], [place] [phone] * (ABNORMAL) POCT glucose (12/28/2022 9:39 PM CDT) GLUCOSE POC 59(L) 70 - 109 12/28/2022 10:11 PM CDT [facility] 12/28/2022 9:39 PM CDT us Juanpablo Pandey MD POCT ORDERABLES - DEVICE Fin al Result Performing Organization Address [facility]/ZIP Co de Phone Number [facility] [address] [place] [address], [place] [phone] * LACTIC ACID - SINGLE (12/28/2022 7:06 PM CDT) LACTIC ACID VENOUS 1.0 0.4 - 2.0 MMOL/L 12/28/2022 7:50 PM CDT [facility] 12/28/2022 7:06 PM CDT us Junapablo Pandey MD LABORATORY Final Result Performing Organization Address [facility] Co de Phone Number [facility] [address] [place] [address], [place] [phone] * POCT glucose (12/28/2022 5:20 PM CDT) GLUCOSE POC 98 70 - 109 12/28/2022 5:24 PM CDT [facility] 12/28/2022 5:20 PM CDT us Juanpablo Pandey MD POCT ORDERABLES - DEVICE Fin al Result Performing Organization Address [facility]/ZIP Co de Phone Number [facility] [address] [place] [address], [place] [phone] * CT ABD+PEL WO CON (12/28/2022 5:19 [...] SPEC DESCRIPTION BLOOD 12/28/2022 12:35 PM CDT [facility] SPECIAL REQUESTS NO SPECIAL REQUEST 12/28/2022 12:35 PM CDT [facility] CULTURE RESULT NO GROWTH 5 DAYS 01/02/2023 9:15 PM CDT [facility] BLOOD SPECIMEN OBTAINED FOR BLOOD CULTURE / Unknown 12/28/2022 12:51 PM CDT 12/28/2022 12:53 PM CDT Fortunato Guzmán MD MICROBIOLOGY - GENERAL ORDERABL ES Final Result Performing Organization Address [facility] Co de Phone Number [facility] [address] [place] [address], [phone] * (ABNORMAL) PROTIME/INR, VENOUS (12/28/2022 12:45 PM CDT) PROTIME 31.2(H) 9.4 - 12.5 SEC 12/28/2022 1:12 PM CDT [facility] INR 2.7(H) 0.8 - 1.1 12/28/2022 1:12 PM CDT [facility] 12/28/2022 12:4 5 PM CDT us Fortunato Guzmán MD LABORATORY Final Result Performing Organization Address [facility] Co de Phone Number [facility] [address] [address], [phone] * PROCALCITONIN (PCT) (12/28/2022 12:45 PM CDT) Procalcitonin 0.28 <0.50 NG/ML 12/28/2022 1:51 PM CDT [facility] 12/28/2022 12:4 5 PM CDT us Fortunato Guzmán MD LABORATORY Final Result Performing Organization Address [facility] Co de Phone Number [facility] [address] [place] [address], [place] [phone] * (ABNORMAL) SED RATE, ERYTHROCYTE (ESR) (12/28/2022 12:45 PM CDT) ESR 115(H) 0 - 15 MM/HR 12/28/2022 12:58 PM CDT [facility] 12/28/2022 12:4 5 PM CDT us Fortunato Guzmán MD LABORATORY Final Result Performing Organization Address [facility] de Phone Number [facility] [address] [place] [address], [phone] * CULTURE, BACTERIA BLOOD X2 (12/28/2022 12:45 PM CDT) SPEC DESCRIPTION BLOOD 12/28/2022 12:35 PM CDT [facility] SPECIAL REQUESTS NO SPECIAL REQUEST 12/28/2022 12:35 PM CDT [facility] CULTURE RESULT NO GROWTH 5 DAYS 01/02/2023 9:15 PM CDT [facility] BLOOD SPECIMEN OBTAINED FOR BLOOD CULTURE / Unknown 12/28/2022 12:45 PM CDT 12/28/2022 12:46 PM CDT us Fortunato Guzmán MD MICROBIOLOGY - GENERAL ORDERABL ES Final Result Performing Organization Address [facility] [[email or web address]] de Phone Number [facility] [address] [place] [address], [place] [phone] * RBC MORPHOLOGY (12/28/2022 12:17 PM CDT) RBC MORPHOLOGY ANISOCYTOSIS 12/29/19 1:43 PM CDT [facility] Comment: SLIGHT POLYCHROMASIA SLIGHT HYPOCHROMASIA SLIGHT POIKILOCYTOSIS SLIGHT OVALOCYTES ACANTHOCYTES 12/28/2022 12:1 7 PM CDT Eveline Jacinto NP LABORATORY Final R esult [facility] [address] [place] [address], [phone] * (ABNORMAL) HEPATIC FUNCTION PANEL (12/28/2022 12:17 PM CDT) Pathologist [facility] BILIRUBIN TOTAL S/P/B 1.0 0.2 - 1.0 MG/DL 12/28/2022 1:36 PM CDT [facility] BILIRUBIN DIRECT S/P/B 0.3(H) 0.0 - 0.2 MG/DL 12/28/2022 1:36 PM CDT [facility] ALKALINE PHOSPHATASE S/P/B 133(H) 45 - 115 U/L 12/28/2022 1:36 PM CDT [facility] AST 31 15 - 37 U/L 12/28/2022 1:36 PM CDT [facility] Comment:RESULT QUESTIONABLE DUE TO HEMOLYSIS, CONSIDER RECOLLECTION. ALT 24 16 - 61 U/L 12/28/2022 1:36 PM CDT [facility] TOTAL PROTEIN S/P/B 8.3(H) 6.4 - 8.2 G/DL 12/28/2022 1:36 PM CDT [facility] ALBUMIN S/P/B 3.3(L) 3.4 - 5.0 G/DL 12/28/2022 1:36 PM CDT [facility] 12/28/2022 12:1 7 PM CDT us Fortunato Guzmán MD LABORATORY Final Result Performing Organization Address [facility] Co de Phone Number [facility] [address] [place] [address], [phone] * (ABNORMAL) C-REACTIVE PROTEIN (12/28/2022 12:17 PM CDT) C-REACTIVE PROTEIN 1.85(H) <0.80 mg/dL 12/28/2022 1:04 PM CDT [facility] 12/28/2022 12:1 7 PM CDT Fortunato Guzmán MD LABORATORY Final Result Performing Organization Address [facility] Co de Phone Number [facility] [address] [place] [address], [phone] * TROPONIN, QUANT (12/28/2022 12:17 PM CDT) TROPONIN I HIGH SENSITIVITY 40 0 - 78 ng/L 12/28/2022 12:58 PM CDT [facility] 12/28/2022 12:1 7 PM CDT Eveline Jacinto NP LABORATORY Final R esult Performing Organization Address [facility] Co de Phone Number [facility] [address] [place] [address], [place] [phone] * (ABNORMAL) PRO-BRAIN NATRIURETIC PEPTIDE (12/28/2022 12:17 PM CDT) PRO-B TYPE NATRIURETIC PEPTIDE 5,795(H) <125 PG/ML 12/28/2022 12:58 PM CDT [facility] Comment: AGE INDEPENDENT: <300 PG/ML HAS [...] 12/28/2022 12:1 7 PM CDT Eveline Jacinto CARDIAC CATH TECHNOLOGIST LABORATORY Final R esult Performing Organization Address [facility] Co de Phone Number [facility] [address] [place] [address], [place] [phone] * MAGNESIUM (12/28/2022 12:17 PM CDT) Pathologist [facility] MAGNESIUM 2.3 1.6 - 2.6 MG/DL 12/28/2022 12:58 PM CDT [facility] Comment:RESULT QUESTIONABLE DUE TO HEMOLYSIS, CONSIDER RECOLLECTION. 12/28/2022 12:1 7 PM CDT Eveline Jacinto CARDIAC CATH TECHNOLOGIST LABORATORY Final R [employer] Performing Organization Address [facility] [[email or web address]] de Phone Number [facility] [address] [place] [address], [phone] * (ABNORMAL) BASIC METABOLIC PANEL (12/28/2022 12:17 PM CDT) SODIUM S/P/B 135(L) 136 - 145 MMOL/L 12/28/2022 12:58 PM CDT [facility] POTASSIUM S/P/B 4.9 3.5 - 5.1 MMOL/L 12/28/2022 12:58 PM CDT [facility] Comment:SLIGHT HEMOLYSIS, RE SULT MAY BE AFFECTED. CHLORIDE S/P/B 101 98 - 107 MMOL/L 12/28/2022 12:58 PM CDT [facility] CO2 28.1 21.0 - 32.0 MMOL/L 12/28/2022 12:58 PM CDT [facility] GLUCOSE 115(H) 74 - 106 MG/DL 12/28/2022 12:58 PM CDT [facility] BUN 35(H) 7 - 18 MG/DL 12/28/2022 12:58 PM CDT [facility] CREATININE S/P/B 2.26(H) 0.70 - 1.30 MG/DL 12/28/2022 12:58 PM CDT [facility] CALCIUM S/P/B 9.6 8.5 - 10.1 MG/DL 12/28/2022 12:58 PM CDT [facility] ANION GAP 5.9 5.0 - 15.0 MMOL/L 12/28/2022 12:58 PM CDT [facility] OSMOLALITY (CALC) 289 MOSM/KG 023 12:58 PM CDT [facility] Comment:REFERENCE RANGE NOT ESTABLISHED GFR ESTIMATE 31(L) >90 ML/MIN/1. 73 M2 12/28/2022 12:58 PM CDT [facility] GFR NOTES GFR REFERENCE S: 12/28/2022 12:58 PM T [facility] Comment: THE ESTIMATED GFR IS [...] Eveline Jacinto NP LABORATORY Final R esult [facility] [address] [place] [address], [id number] * (ABNORMAL) CBC W/DIFF AUTOMATED (12/28/2022 12:17 PM CDT) [facility] WBC 10.68 4.00 - 10.80 x10'3/uL 12/28/2022 12:46 PM CDT [facility] RBC 3.95(L) 4.50 - 6.10 x10'6/uL 12/28/2022 12:46 PM CDT [facility] HGB 9.1(L) 13.0 - 18.0 G/DL 12/28/2022 12:46 PM CDT [facility] HCT 31.7(L) 37.0 - 52.0 % 12/28/2022 12:46 PM CDT [facility] MCV 80.3 78.0 - 100.0 FL 12/28/2022 12:46 PM CDT [facility] MCH 23.0(L) 27.0 - 31.0 PG 12/28/2022 12:46 PM CDT [facility] MCHC 28.7(L) 33.0 - 36.0 G/DL 12/28/2022 12:46 PM CDT [facility] RDW 18.3(H) 11.5 - 14.5 % 12/28/2022 12:46 PM CDT [facility] PLT 201 150 - 350 x10'3/uL 12/28/2022 12:46 PM CDT [facility] MPV 11.1(H) 7.4 - 10.4 FL 12/28/2022 12:46 PM CDT [facility] ABS. NEUTROPHILS 7.71 1.60 - 8.30 x10'3/uL 12/28/2022 12:46 PM CDT [facility] ABS. LYMPHOCYTES 1.48 0.80 - 4.70 x10'3/uL 12/28/2022 12:46 PM CDT [facility] ABS. MONOCYTES 1.18 0.00 - 1.50 x10'3/uL 12/28/2022 12:46 PM CDT [facility] ABS. EOSINOPHILS 0.20 0.00 - 0.40 x10'3/uL 12/28/2022 12:46 PM CDT [facility] ABS. BASOPHILS 0.07 0.00 - 0.20 x10'3/uL 12/28/2022 12:46 PM CDT [facility] ABS. IMMATURE GRANULOCYTES 0.04(H) 0.00 - 0.03 x10'3/uL 12/28/2022 12:46 PM CDT [facility] ABS. NUCLEATED RBC'S 0.00 0.0 x10'3/uL 12/28/2022 12:46 PM CDT [facility] 12/28/2022 12:1 7 PM CDT Eveline Jacinto CARDIAC CATH TECHNOLOGIST LABORATORY Final R esult [facility] [address] [place] [address], [id number] * ECG 12 lead (12/28/2022 12:15 PM CDT) 12/28/2022 12:1 5 PM CDT Narrative [facility] - 12/29/2022 6:39 AM CDT ?SJS-ED ? Test Date: ?2022-12-28 Pat Name: ? OBIE SIMS ?Department: ?? 70 ? Room: ? 484 Gender: ? Male ? News Reel Cameraman: ?? RLP : ?1955 ? Requested By: EVELINE JACINTO Order Number: [id number] ? Reading MD: ?? Domingo Parks ? Measurements Intervals ?[place] ? Rate: ? 90 ? P: ? IA: ? 0 ?QRS: ?-35 QRSD: ? 132 [...] SIMS Department: 70 Room: 484 Gender: Male News Reel Cameraman: ISABEL : 1955 Requested By: EVELINE JACINTO Order Number: [id number] Reading MD: Domingo Parks Measurements Intervals [place] Rate: 90 P: IA: 0 QRS: -35 QRSD: 132 T: 136 QT: 388 QTc: 476 Interpretive Statements ATRIAL FIBRILLATION MARKED LEFT AXIS DEVIATION [QRS AXIS < -30] LEFT BUNDLE BRANCH BLOCK [120+ ms QRS DURATION, 80+ ms Q/S IN V1/V2, 85+ms R IN I/aVL/V5/V6] us Eveline Jacinto CARDIAC CATH TECHNOLOGIST ECG ORDERABLES Final R esult [facility] * XR CHEST PA+LAT [...] Lemus MD, 12/28/2022 12:14 PM Eveline Jacinto CARDIAC CATH TECHNOLOGIST GENERAL IMAGING Final R esult documented in this encounter Visit Diagnoses Diagnosis CHF (congestive heart failure) ([facility])- Primary Congestive heart failure, unspecified Acute exacerbation of CHF (congestive heart failure) ([facility] HHS/HCC) Congestive heart failure, unspecified Cellulitis Cellulitis and abscess of unspecified site Pain in both lower extremities Acute on chronic combined systolic and diastolic congestive heart failure ([facility]) Acute on chronic combined systolic and diastolic heart failure documented in this encounter Admitting Diagnoses Diagnosis CHF (congestive heart failure) ([facility]) Congestive heart failure, unspecified documented in [...] Discontinued 0736 (Given - Provider: Cristiano Harrington, CONTROL CLERK AUDITING) isosorbide dinitrate-hydralazine (BIDIL) 20-37.5 MG tablet 0.5 [...] RN) 0845 (Given - Provider: Ivett Lafleur, YUNI) rOPINIRole (REQUIP) tablet 4 mg 4 [...] documented as of this encounter Care Teams Rehabilitation Program Coordinator Relationship Specialty Start Date End Date Megan Infante MD [address] [facility] [place] [address] PCP - General FAMILY PRACTICE 04/06/16 Amauri Pandey MD [place] [employer] Supervisor CARDIOVASCULAR DISEASE 04/06/16 12/28/23 Sharmila Davis, JACKER, CARDIAC CATH TECHNOLOGIST-C [address] [facility] [address] [address] NURSE PRACTITIONER 01/04/17 04/03/24 Linda Block MD [address] [phone] [place] [employer]id Supervisor CLINICAL CARDIAC ELECTROPHYSIOLOGY 02/08/17 04/12/23 Jeff Grace MD [address] [phone] Consulting Physician INTERNAL MEDICINE 02/20/19 3 Zaki Ortiz MD [address] [phone] Consulting Physician PULMONARY DISEASE 07/12/19 Concetta Acevedo MD [address] [place] [phone] Surgeon NEUROLOGICAL SURGERY 12/16/22 documented as of this encounter
--- OUTSIDE RECORDS SUMMARY | 2024-09-03 20:39 | XMS_ITS | Encounter Summary ---
Author Organization [facility] Address [address] [place] [address]. [place] [address] [place] [address] Care Team Providers Care Timber Supervisor Name Role Phone Piyush Pandey MD Unavailable Unavailabl e Megan Infante MD Primary Care Provider [phone] Sharmila Davis APRN, NP-C Unavailable [phone] Linda Block MD Unavailable [phone] Jeff Grace MD Unavailable Zaki Ortiz MD Unavailable [phone] Romeo-Concetta Pond MD Unavailable + [phone] Encounter Details Date Type Department Care Team (Late st Contact Info) Description 01/21/2023 Orders Only [facility] [address] [place] [address] Megan Infante MD [address] [place] [address] Social History Tobacco Use Types [...] st Contact Info) Description 09/25/2024 2:00 PM KEYBOARDING CLERK Appointment [facility] [address] [place] [address] Zayra Powell, PROJECT DEVELOPMENT MANAGER [address] [place] [address] 10/16/2024 3:30 PM KEYBOARDING CLERK Office Visit [facility] [address] [place] [address] Brit Gonzáles MD [address] [place] [address] documented as of this encounter Results * (ABNORMAL) IRON SATURATION PNL (FE/TIBC/SAT) (01/21/2023 12:00 PM CDT) IRON 23(L) 65 - 175 MCG/DL 01/21/2023 1:11 PM CDT [facility] IRON BINDING CAPACITY 410 250 - 450 MCG/DL 01/21/2023 1:11 PM CDT [facility] IRON SATURATION 6 % 1:11 PM CDT [facility] Comment:REFERENCE RANGE NOT ESTABLISHED 01/21/2023 12:0 0 PM CDT us Megan Infante MD LABORATORY Final Result Performing Organization Address [facility] de Phone Number [facility] [address] [place], [place] [address] [address], * (ABNORMAL) RETICULOCYTE CT, AUTO (01/21/2023 12:00 PM CDT) Pathologist [facility] RETICULOCYTE COUNT 1.3 0.7 - 2.3 % 01/21/2023 1:22 PM CDT [facility] ABSOLUTE RETICULOCYTE 0.05 0.03 - 0.11 x10'6/uL 01/21/2023 1:22 PM CDT [facility] IMMATURE RETIC FRACTION 15.2(H) 2.3 - 13.4 % 01/21/2023 1:22 PM CDT [facility] RETIC HGB 19.3(L) 28.0 - 35.0 PG 01/21/2023 1:22 PM CDT [facility] 01/21/2023 12:0 0 PM CDT us Megan Infante MD LABORATORY Final Result Performing Organization Address [facility] Co de Phone Number [facility] [address] [place], [place] [address] [address], * (ABNORMAL) CBC W/DIFF AUTOMATED (01/21/2023 12:00 PM CDT) [facility] Signature WBC 7.34 4.00 - 10.80 x10'3/uL 01/21/2023 1:22 PM CDT [facility] RBC 3.81(L) 4.50 - 6.10 x10'6/uL 01/21/2023 1:22 PM CDT [facility] HGB 8.6(L) 13.0 - 18.0 G/DL 01/21/2023 1:22 PM CDT [facility] HCT 30.4(L) 37.0 - 52.0 % 01/21/2023 1:22 PM CDT [facility] MCV 79.8 78.0 - 100.0 FL 01/21/2023 1:22 PM CDT [facility] MCH 22.6(L) 27.0 - 31.0 PG 01/21/2023 1:22 PM CDT [facility] MCHC 28.3(L) 33.0 - 36.0 G/DL 01/21/2023 1:22 PM CDT [facility] RDW 18.4(H) 11.5 - 14.5 % 01/21/2023 1:22 PM CDT [facility] PLT 180 150 - 350 x10'3/uL 01/21/2023 1:22 PM CDT [facility] MPV 10.9(H) 7.4 - 10.4 FL 01/21/2023 1:22 PM CDT [facility] CBC COMMENT NORMAL REFERENCE RANGE NOT ESTABLISHED FOR THE PROPORTIONAL LEUKOCYTE DIFFERENTIAL. 01/21/2023 1:22 PM CDT [facility] NEUTROPHILS % 69.5 % 01/21/2023 1:42 PM CDT [facility] LYMPHOCYTES % 14.6 % 01/21/2023 1:42 PM CDT [facility] MONOCYTES % 12.1 % 01/21/2023 1:42 PM CDT [facility] EOSINOPHILS % 3.0 % 01/21/2023 1:42 PM CDT [facility] BASOPHILS % 0.4 % 01/21/2023 1:42 PM CDT [facility] IMMATURE GRANS % 0.4 % 01/22/20 1:42 PM CDT [facility] NRBC 0.0 % 01/21/2023 1:42 PM CDT [facility] ABS. NEUTROPHILS 5.10 1.60 - 8.30 x10'3/uL 01/21/2023 1:42 PM CDT [facility] ABS. LYMPHOCYTES 1.07 0.80 - 4.70 x10'3/uL 01/21/2023 1:42 PM CDT [facility] ABS. MONOCYTES 0.89 0.00 - 1.50 x10'3/uL 01/21/2023 1:42 PM CDT [facility] ABS. EOSINOPHILS 0.22 0.00 - 0.40 x10'3/uL 01/21/2023 1:42 PM CDT [facility] ABS. BASOPHILS 0.03 0.00 - 0.20 x10'3/uL 01/21/2023 1:42 PM CDT [facility] ABS. IMMATURE GRANULOCYTES 0.03 0.00 - 0.03 x10'3/uL 01/21/2023 1:42 PM CDT [facility] ABS. NUCLEATED RBC'S 0.00 0.00 x10'3/uL 01/21/2023 1:42 PM CDT [facility] PLT MORPH. NORMAL 01/21/2023 1:42 PM CDT [facility] RBC MORPHOLOGY 1+ 01/21/2023 1:42 PM CDT [facility] Comment: RODRI CELLS 1+ SCHISTOCYTES 1+ OVALOCYTES 1+ HYPOCHROMASIA 2+ POIKILOCYTOSIS 2+ ANISOCYTOSIS 01/21/2023 12:0 0 PM CDT Megan Infante MD LABORATORY Final Result [facility] [address] [place] [address], * (ABNORMAL) FERRITIN (01/21/2023 12:00 PM CDT) FERRITIN 12.9(L) 26 - 388 NG/ML 01/21/2023 1:25 PM CDT [facility] 01/21/2023 12:0 0 PM CDT us Megan Infante MD LABORATORY Final Result Performing Organization Address [facility] Co de Phone Number [facility] [address] [place] [address], * (ABNORMAL) PROTIME/INR, VENOUS (01/21/2023 12:00 PM CDT) Pathologist [facility] PROTIME 65.0(H) 9.4 - 12.5 SEC 01/21/2023 1:39 PM CDT [facility] INR 5.6(HH) 0.8 - 1.0 01/21/2023 1:39 PM CDT [facility] Comment: CRITICAL VALUE CALLED TO PAUL 133 01/21/23 AFW READ BACK AND VERIFIED 01/21/2023 12:0 0 PM CDT us Megan Infante MD LABORATORY Final Result Performing Organization Address [facility] Co de Phone Number [facility] [place] [address], * BLOOD SMEAR INTERPRETATION BY (01/21/2023 12:00 AM CDT) PATHOLOGY [facility] ? Department of Laboratory Medicine ?[address] ?[place] [address] ? , extension [phone] ? Pathology Report ? Peripheral Smear Report Name: OBIE SIMS ?Specimen #: [id number] Age: 12 1955 (Age: 67) ? Location: Sex: M ?Procedure Date: 01/21/2023 [facility] #: [id number] ?Date Received: 01/25/2023 Date Reported: 01/25/2023 Provider: [...] applicable), interpretation and sign-out were performed at [facility], [address] [place] [address], [place], [place], [facility]. [facility] 01/21/2023 01/25/2023 11: 01 AM CDT Comment:Peripheral blood us Megan Infante MD LABORATORY Final Result [facility] [address] [place] [address], [id number] documented in this encounter Visit Diagnoses Diagnosis Low hemoglobin- Primary Anemia, unspecified A-fib (CMS/HCC HHS/HCC) Atrial fibrillation documented in this encounter Additional Health Concerns Assessment Noted Time PHQ-9 Depression Total Score: 0 12/02/19 22 1:18 PM CDT documented as of this encounter Care Teams Timber Supervisor Relationship Specialty Start Date End Date Megan Infante MD [address] [facility] [place] [address] PCP - General FAMILY PRACTICE 04/06/16 Piyush Pandey MD [employer] Internship CARDIOVASCULAR DISEASE 04/06/16 12/28/23 Sharmila Davis, SLIP COVER ESTIMATOR, QUARRYING MANAGER-C [address] [facility] [address] [place] [address] NURSE PRACTITIONER 01/04/17 04/03/24 Linda Block MD [address] [facility] [address] [place] [address] [employer] CLINICAL CARDIAC ELECTROPHYSIOLOGY 02/08/17 04/12/23 Jeff Grace MD [address] [facility] [address] [address] Consulting Physician INTERNAL MEDICINE 02/20/19 3 Zaki Ortiz MD [address] [facility] [address] [place] [address] Consulting Physician PULMONARY DISEASE 07/12/19 Concetta Acevedo MD [address] [place] [address] [phone] Surgeon NEUROLOGICAL SURGERY 12/16/22 documented as of this encounter
--- OUTSIDE RECORDS SUMMARY | 2024-09-03 20:39 | XMS_ITS | Encounter Summary ---
Author Organization [facility] Address [facility]ly [facility] [facility] [place] [address] [place] [address] Care Team Providers Care Senior Ui Software Engineer Name Role Phone Piyush Pandey MD Unavailable Unavailabl e Megan Infante MD Primary Care Provider [phone] Sharmila Davis APRN, SEISMOGRAPH RECORDER-C Unavailable Linda Block MD Unavailable [phone] Jeff Grace MD Unavailable Zaki Ortiz MD Unavailable [phone] RomeoConcetta Pond MD Unavailable + [phone] Reason for Visit * Reason Onset Date Comments Other 01/26/2023 Encounter Details Date Type Department Care Team ([facility] st Contact Info) Description 01/26/2023 Telephone [facility] [address] [place] [address] Sharmila Davis APRN, SEISMOGRAPH RECORDER-C [address] [facility] [address] [place] [address] Other Social History Tobacco Use [...] slept in a care home (including now)? No 12/28/2022 Sex and [...] CALLER: june pena/ 's office PH #: [phone] PROVIDER/NEW PT: REASON FOR CALL: june called [...] st Contact Info) Description 09/25/2024 2:00 PM POST ADOPTION COORDINATOR Appointment [facility] [address] [facility] [place] [address] Zayra Powell, TRANSFORMER MAKER [address] [facility] [place] [address] 10/16/2024 3:30 PM POST ADOPTION COORDINATOR Office Visit [facility] [address] [facility] [place] [address] Brit Gonzáles MD [address] [place], [place] [phone] documented as of this encounter Visit Diagnoses Not on filedocumented in this encounter Additional Health Concerns Assessment Noted Time PHQ-9 Depression Total Score: 0 12/02/19 22 1:18 PM CDT documented as of this encounter Care Teams Senior Ui Software Engineer Relationship Specialty Start Date End Date Megan Infante MD [address] [facility] [place] [address] PCP - General FAMILY PRACTICE 04/06/16 Piyush Pandey MD [place] [employer] Sprayer CARDIOVASCULAR DISEASE 04/06/16 12/28/23 Sharmila Davis APRN, SEISMOGRAPH RECORDER-C [address] [facility] [address] [place] [phone] NURSE PRACTITIONER 01/04/17 04/03/24 Linda Block MD [address] [facility] [address] [place] [phone] [place] [employer]ayer CLINICAL CARDIAC ELECTROPHYSIOLOGY 02/08/17 04/12/23 Jeff Grace MD [address] [place] [phone] Consulting Physician INTERNAL MEDICINE 02/20/19 3 Zaki Ortiz MD [address] [place] [address] Consulting Physician PULMONARY DISEASE 07/12/19 Concetta Acevedo MD [address] [place] [phone] Surgeon NEUROLOGICAL SURGERY 12/16/22 documented as of this encounter
--- OUTSIDE RECORDS SUMMARY | 2024-09-03 20:39 | XMS_ITS | Encounter Summary ---
Author Organization [facility] Address [address] [place] [address]. [place] [address] [place] [address] Care Team Providers Care Medical Office Rep Name Role Phone Piyush Pandey MD Unavailable Unavailabl e Megan Infante MD Primary Care Provider [phone] Sharmila Davis APRN, NP-C Unavailable [phone] Linda Block MD Unavailable [phone] Jeff Grace MD Unavailable Zaki Ortiz MD Unavailable [phone] Romeo-Concetta Pond MD Unavailable + [phone] Encounter Details Date Type Department Care Team (Late st Contact Info) Description 01/12/2023 Orders Only [facility] [address] [place] [address] Megan Infante MD [address] [place] [address] Social History Tobacco Use Types [...] Contact Info) Description 09/25/2024 2:00 PM ASSISTANT IN NURSING Appointment [facility] [address] [place] [address] Zayra Powell, PROFESSOR OF INDUSTRIAL TECHNOLOGY [address] [place] [address] 10/16/2024 3:30 PM ASSISTANT IN NURSING Office Visit [facility] [address] [place] [address] Brit Gonzáles MD [address] [place] [address] documented as of this encounter Results * (ABNORMAL) COMPREHENSIVE METABOLIC PANEL (01/12/2023 11:30 AM CDT) SODIUM S/P/B 135(L) 136 - 145 MMOL/L 01/12/2023 12:42 PM CDT [facility] POTASSIUM S/P/B 4.5 3.5 - 5.1 MMOL/L 01/12/2023 12:42 PM CDT [facility] CHLORIDE S/P/B 97(L) 98 - 107 MMOL/L 01/12/2023 12:42 PM CDT [facility] CO2 28.7 21.0 - 32.0 MMOL/L 01/12/2023 12:42 PM CDT [facility] GLUCOSE 229(H) 70 - 99 MG/DL 01/12/2023 12:42 PM CDT [facility] Comment: FASTING GLUCOSE 100 TO 125 MG/DL IS CONSISTENT WITH IMPAIRED FASTING GLUCOSE. FASTING GLUCOSE >125 MG/DL IS CONSISTENT WITH DIABETES. RANDOM GLUCOSE >200 MG/DL WITH HYPERGLYCEMIC SYMPTOMS IS CONSISTENT WITH DIABETES. PER ADA GUIDELINES BUN 38(H) 6 - 24 MG/DL 01/12/2023 12:42 PM CDT [facility] CREATININE S/P/B 1.86(H) 0.70 - 1.30 MG/DL 01/12/2023 12:42 PM CDT [facility] CALCIUM S/P/B 9.1 8.4 - 10.5 MG/DL 01/12/2023 12:42 PM CDT [facility] BILIRUBIN TOTAL S/P/B 0.9 0.2 - 1.0 MG/DL 01/12/2023 12:42 PM CDT [facility] Comment: THIS ASSAY IS NOT RECOMMENDED FOR PATIENTS UNDERGOING TREATMENT WITH ELTROMBOPAG DUE TO THE POTENTIAL FOR FALSELY ELEVATED RESULTS. ALKALINE PHOSPHATASE S/P/B 169(H) 45 - 115 U/L 01/12/2023 12:42 PM CDT [facility] AST 22 15 - 37 U/L 01/12/2023 12:42 PM CDT [facility] ALT 33 16 - 63 U/L 01/12/2023 12:42 PM CDT [facility] TOTAL PROTEIN S/P/B 7.5 6.4 - 8.2 G/DL 01/12/2023 12:42 PM CDT [facility] ALBUMIN S/P/B 3.2(L) 3.4 - 5.0 G/DL 01/12/2023 12:42 PM CDT [facility] ANION GAP 9.3 5.0 - 15.0 MMOL/L 01/12/2023 12:42 PM CDT [facility] OSMOLALITY (CALC) 296 MOSM/KG 023 12:42 PM CDT [facility] Comment:REFERENCE RANGE NOT ESTABLISHED GFR ESTIMATE 39(L) >89 ML/MIN/1. 73 M2 01/12/2023 12:42 PM CDT [facility] GFR NOTES GFR REFERENCE S: 01/12/2023 12:42 PM CDT [facility] Comment: THE ESTIMATED GFR [...] CDT Megan Infante MD LABORATORY Final Result [facility] [address] [place] [address], * (ABNORMAL) CBC W/DIFF AUTOMATED (01/12/2023 11:30 AM CDT) WBC 8.45 4.00 - 10.80 x10'3/uL 01/12/2023 12:30 PM CDT [facility] RBC 3.69(L) 4.50 - 6.10 x10'6/uL 01/12/2023 12:30 PM CDT [facility] HGB 8.4(L) 13.0 - 18.0 G/DL 01/12/2023 12:30 PM CDT [facility] HCT 29.7(L) 37.0 - 52.0 % 01/12/2023 12:30 PM CDT [facility] MCV 80.5 78.0 - 100.0 FL 01/12/2023 12:30 PM CDT [facility] MCH 22.8(L) 27.0 - 31.0 PG 01/12/2023 12:30 PM CDT [facility] MCHC 28.3(L) 33.0 - 36.0 G/DL 01/12/2023 12:30 PM CDT [facility] RDW 18.5(H) 11.5 - 14.5 % 01/12/2023 12:30 PM CDT [facility] PLT 206 150 - 350 x10'3/uL 01/12/2023 12:30 PM CDT [facility] MPV 11.2(H) 7.4 - 10.4 FL 01/12/2023 12:30 PM CDT [facility] CBC COMMENT NORMAL REFERENCE RANGE NOT ESTABLISHED FOR THE PROPORTIONAL LEUKOCYTE DIFFERENTIAL. 01/12/2023 12:30 PM CDT [facility] NEUTROPHILS % 72.7 % 01/12/2023 1:04 PM CDT [facility] LYMPHOCYTES % 13.0 % 01/12/2023 1:04 PM CDT [facility] MONOCYTES % 10.9 % 01/12/2023 1:04 PM CDT [facility] EOSINOPHILS % 2.2 % 01/12/2023 1:04 PM CDT [facility] BASOPHILS % 0.7 % 01/12/2023 1:04 PM CDT [facility] IMMATURE GRANS % 0.5 % 01/13/20 1:04 PM CDT [facility] NRBC 0.0 % 01/12/2023 1:04 PM CDT [facility] ABS. NEUTROPHILS 6.14 1.60 - 8.30 x10'3/uL 01/12/2023 1:04 PM CDT [facility] ABS. LYMPHOCYTES 1.10 0.80 - 4.70 x10'3/uL 01/12/2023 1:04 PM CDT [facility] ABS. MONOCYTES 0.92 0.00 - 1.50 x10'3/uL 01/12/2023 1:04 PM CDT [facility] ABS. EOSINOPHILS 0.19 0.00 - 0.40 x10'3/uL 01/12/2023 1:04 PM CDT [facility] ABS. BASOPHILS 0.06 0.00 - 0.20 x10'3/uL 01/12/2023 1:04 PM CDT [facility] ABS. IMMATURE GRANULOCYTES 0.04(H) 0.00 - 0.03 x10'3/uL 01/12/2023 1:04 PM CDT [facility] ABS. NUCLEATED RBC'S 0.00 0.00 x10'3/uL 01/12/2023 1:04 PM CDT [facility] PLT MORPH. NORMAL 01/12/2023 1:04 PM CDT [facility] RBC MORPHOLOGY 1+ 01/12/2023 1:04 PM CDT [facility] Comment:HYPOCHROMASIA 01/12/2023 11:3 0 AM CDT Megan Infante MD LABORATORY Final Result [facility] [address] [place] [address], documented in this encounter Visit Diagnoses Diagnosis CHF (congestive heart failure) ([facility])- Primary Congestive heart failure, unspecified documented in this encounter Additional Health Concerns Assessment Noted Time PHQ-9 Depression Total Score: 0 12/02/19 22 1:18 PM CDT documented as of this encounter Care Teams Medical Office Rep Relationship Specialty Start Date End Date Megan Infante MD [address] [facility] [place] [address] PCP - General FAMILY PRACTICE 04/06/16 Piyush Pandey MD [employer] Chef CARDIOVASCULAR DISEASE 04/06/16 12/28/23 Sharmila Davis, BUCKLE INSPECTOR, SENIOR INTEGRATION ARCHITECT-C [address] [phone] NURSE PRACTITIONER 01/04/17 04/03/24 Linda Block MD [address] [phone] [employer] Chef CLINICAL CARDIAC ELECTROPHYSIOLOGY 02/08/17 04/12/23 Jeff Grace MD [address] [phone] Consulting Physician INTERNAL MEDICINE 02/20/19 3 Zaki Ortiz MD [address] [phone] Consulting Physician PULMONARY DISEASE 07/12/19 Concetta Acevedo MD [address] [place] [address] Surgeon NEUROLOGICAL SURGERY 12/16/22 documented as of this encounter
--- OUTSIDE RECORDS SUMMARY | 2024-09-03 20:39 | XMS_ITS | Encounter Summary ---
Author Organization [facility] Address [address] [place] [address]. [place] [address] [place] [address] Care Team Providers Care Software Test Developer Name Role Phone Piyush Pandey MD Unavailable Unavailabl e Megan Infante MD Primary Care Provider [phone] Sharmila Davis APRN, NP-C Unavailable [phone] Linda Block MD Unavailable [phone] Jeff Grace MD Unavailable Zaki Ortiz MD Unavailable [phone] Romeo-Concetta Pond MD Unavailable + [phone] Encounter Details Date Type Department Care Team (Late st Contact Info) Description 01/19/2023 Orders Only [facility] [address] [place] [address] Megan Infante MD [address] [place] [address] Social History Tobacco Use Types [...] or slept in a correction (including now)? No 12/28/2022 Sex and Gender [...] st Contact Info) Description 09/25/2024 2:00 PM PERSONAL CARE AID Appointment [facility] [address] [place] [address] Zayra Powell, AGRICULTURAL EXTENSION AGENT [address] [place] [address] 10/16/2024 3:30 PM PERSONAL CARE AID Office Visit [facility] [address] [place] [address] Brit Gonzáles MD [address] [place] [address] documented as of this encounter Results * (ABNORMAL) PROTIME/INR, VENOUS (01/19/2023 3:10 PM CDT) PROTIME 93.5(H) 9.4 - 12.5 SEC 01/19/2023 4:39 PM CDT [facility] INR 8.0(HH) 0.8 - 1.0 01/19/2023 4:39 PM CDT [facility] Comment: CRITICAL VALUE CALLED TO CALLED TO LA NENA MILLER RN 01.19.23 AT 1629 BY Connected READ BACK AND VERIFIED 01/19/2023 3:10 PM CDT us Megan Infante MD LABORATORY Final Result [facility] [address] [phone] documented in this encounter Visit Diagnoses Diagnosis A-fib (CMS/HCC HHS/HCC)- Primary Atrial fibrillation documented in this encounter Additional Health Concerns Assessment Noted Time PHQ-9 Depression Total Score: 0 12/02/19 22 1:18 PM CDT documented as of this encounter Care Teams Software Test Developer Relationship Specialty Start Date End Date Megan Infante MD [address] [facility] [place] [phone] PCP - General FAMILY PRACTICE 04/06/16 Piyush Pandey MD [employer] CARDIOVASCULAR DISEASE 04/06/16 12/28/23 Sharmila Davis APRN, CARE ADMINISTRATIVE TECH-C [id number] [place] [phone] NURSE PRACTITIONER 01/04/17 04/03/24 Linda Block MD [address] [facility] [address] [phone] [employer] CLINICAL CARDIAC ELECTROPHYSIOLOGY 02/08/17 04/12/23 Jeff Grace MD [address] [place] [phone] Consulting Physician INTERNAL MEDICINE 02/20/19 3 Zaki Ortiz MD [address] [place] [phone] Consulting Physician PULMONARY DISEASE 07/12/19 Concetta Acevedo MD [address] [place] [id number] Surgeon NEUROLOGICAL SURGERY 12/16/22 documented as of this encounter
--- OUTSIDE RECORDS SUMMARY | 2024-09-03 20:39 | XMS_ITS | Encounter Summary ---
Author Organization [facility] Address [facility] [place] [address] [place] [address] Care Team Providers Care Music Video Director Name Role Phone Piyush Pandey MD Unavailable Unavailabl e Megan Infante MD Primary Care Provider [phone] Sharmila Davis APRN BRANDING SPECIALIST-C Unavailable Linda Block MD Unavailable [phone] Jeff Grace MD Unavailable Zaki Ortiz MD Unavailable [phone] Romeo-Concetta Pond MD Unavailable + [phone] Encounter Details Date Type Department Care Team (Latest Contact Info) Description 01/06/2023 3:15 PM CDT - 01/06/2023 11:59 PM CDT Hospital Encounter [facility] [address] [place] [address] Brennan Gimenez MD [address] [id number] Discharge Disposition: Home or Self Care (Routine [...] st Contact Info) Description 09/25/2024 2:00 PM EMPLOYEE BENEFITS COORDINATOR Appointment [facility] [address] [place] [address] Zayra Powell, [facility] [address] [place] [address] 10/16/2024 3:30 PM EMPLOYEE BENEFITS COORDINATOR Office Visit [facility] [address] [place] [address] Brit Gonzáles MD [address] [place] [address] documented as of this encounter Procedures Procedure [...] - 10.80 x10'3/uL 01/06/2023 3:41 PM CDT [facility] RBC 3.65(L) 4.50 - 6.10 x10'6/uL 01/06/2023 3:41 PM CDT [facility] HGB 8.4(L) 13.0 - 18.0 G/DL 01/06/2023 3:41 PM CDT [facility] HCT 30.4(L) 37.0 - 52.0 % 01/06/2023 3:41 PM CDT [facility] MCV 83.3 78.0 - 100.0 FL 01/06/2023 3:41 PM CDT [facility] MCH 23.0(L) 27.0 - 31.0 PG 01/06/2023 3:41 PM CDT [facility] MCHC 27.6(L) 33.0 - 36.0 G/DL 01/06/2023 3:41 PM CDT [facility] RDW 18.8(H) 11.5 - 14.5 % 01/06/2023 3:41 PM CDT [facility] PLT 163 150 - 350 x10'3/uL 01/06/2023 3:41 PM CDT [facility] MPV 10.7(H) 7.4 - 10.4 FL 01/06/2023 3:41 PM CDT [facility] 01/06/2023 8:25 AM CDT us Brennan Gimenez MD LABORATORY Final Result [facility] [address] [place] [address], * (ABNORMAL) BASIC METABOLIC PANEL (01/06/2023 8:25 AM CDT) SODIUM S/P/B 131(L) 136 - 145 MMOL/L 01/06/2023 4:13 PM CDT [facility] POTASSIUM S/P/B 4.3 3.6 - 5.0 MMOL/L 01/06/2023 4:13 PM CDT [facility] CHLORIDE S/P/B 95(L) 98 - 107 MMOL/L 01/06/2023 4:13 PM [facility] CO2 31.5 21.0 - 32.0 MMOL/L 01/06/2023 4:13 PM [facility] GLUCOSE 159(H) 70 - 99 MG/DL 01/06/2023 4:13 PM [facility] Comment: FASTING GLUCOSE 100 TO 125 MG/DL IS CONSISTENT WITH IMPAIRED FASTING GLUCOSE. FASTING GLUCOSE >125 MG/DL IS CONSISTENT WITH DIABETES. RANDOM GLUCOSE >200 MG/DL WITH HYPERGLYCEMIC SYMPTOMS IS CONSISTENT WITH DIABETES. PER ADA GUIDELINES BUN 47(H) 7 - 18 MG/DL 01/06/2023 4:13 PM [facility] CREATININE S/P/B 2.04(H) 0.70 - 1.30 MG/DL 01/06/2023 4:13 PM [facility] CALCIUM S/P/B 9.3 8.5 - 10.1 MG/DL 01/06/2023 4:13 PM [facility] ANION GAP 4.5(L) 5 - 15 MMOL/L 01/06/2023 4:13 PM [facility] OSMOLALITY (CALC) 288 MOSM/KG 023 4:13 PM [facility] GFR ESTIMATE 35(L) >90 ML/MIN/1. 73 M2 01/06/2023 4:13 PM [facility] GFR NOTES GFR REFERENCE S: 01/06/2023 4:13 PM [facility] Comment: THE ESTIMATED [...] CDT Brennan Gimenez MD LABORATORY Final Result [facility] [address] 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)- Primary Unspecified hypertensive heart and kidney disease with heart failure and with chronic kidney disease stage I through stage IV, or unspecified COPD (chronic obstructive pulmonary disease) ([facility]) Chronic airway obstruction, not elsewhere classified Diabetes mellitus, type II ([facility]) Type II or unspecified type diabetes mellitus without mention of complication, not stated as uncontrolled CKD (chronic kidney disease), stage III ([facility]) Chronic kidney disease, Stage III (moderate) Hyperlipidemia Other and unspecified hyperlipidemia Decreased GFR Nonspecific abnormal results of kidney function study Portopulmonary hypertension ([facility]) Portal hypertension documented in this encounter Additional Health Concerns Assessment Noted Time PHQ-9 Depression Total Score: 0 12/02/19 22 1:18 PM CDT documented as of this encounter Care Teams Music Video Director Relationship Specialty Start Date End Date Megan Infante MD [address] [facility] [facility] [place] [address] PCP - General FAMILY PRACTICE 04/06/16 Piyush Pandey MD [place] Supervisor Of Way CARDIOVASCULAR DISEASE 04/06/16 12/28/23 Sharmila Davis, MICROCOMPUTER TECHNICIAN, BRANDING SPECIALIST-C [address] [facility] [address] [place] [address] NURSE PRACTITIONER 01/04/17 04/03/24 Linda Block MD [address] [facility] [address] [place] [phone] [place] [address] CLINICAL CARDIAC ELECTROPHYSIOLOGY 02/08/17 04/12/23 Jeff Grace MD [address] [facility] [address] [place] [phone] Consulting Physician INTERNAL MEDICINE 02/20/19 3 Zaki Ortiz MD [address] [facility] [address] [place] [phone] Consulting Physician PULMONARY DISEASE 07/12/19 Concetta Acevedo MD [address] [place] [address] Surgeon NEUROLOGICAL SURGERY 12/16/22 documented as of this encounter
--- OUTSIDE RECORDS SUMMARY | 2024-09-03 20:39 | XMS_ITS | Encounter Summary ---
Author Organization [facility] Address [facility] [place] [address] [place] [address] Care Team Providers Care Ship Steward Name Role Phone Piyush Pandey MD Unavailable Unavailabl e Megan Infante MD Primary Care Provider [phone] Sharmila Davis APRN, NP-C Unavailable [phone] Linda Block MD Unavailable [phone] Jeff Grace MD Unavailable Zaki Ortiz MD Unavailable [phone] RomeoConcetta Pond MD Unavailable + [phone] Reason for Visit * Reason Comments Medical Problem Encounter Details Date Type Department Care Team (Late st Contact Info) Description 01/26/2023 5:16 PM CDT - 01/26/2023 7:55 PM T Emergency [facility] [address] [facility] [place] [address] Uri Babb, DO [address] [place], [place] [address] Medical Problem Discharge Disposition: Home or Self [...] Care Everywhere. * Dependent Edema Discharge Instructions (Tuvaluan) documented in this encounter Medications at Time [...] 1 puff into the lungs daily. 12/23/2022 amLODIPine (NORVASC) 2.5 MG tablet Take 1 [...] and Call Physician) 9.6 mL 01/04/2023 3 losartan (COZAAR) 25 MG tablet Take 1 [...] topically 2 (two) times daily. 12/14/2022 3 potassium chloride CR (KLOR-CON M) 20 MEQ [...] admitted on 12/29 for CHF exacerbation at [facility] and discharged just under 1mth ago on [...] Told to come here for transfer to [place] due to his continued pain in his [...] heart failure, unspecified heart failure type ([facility]) Anxiety Aortic valve stenosis Arthritis Asthma, mild persistent 04/06/2021 Atrial fibrillation ([facility]/HCC) s/p PVI/WACA 10/2015 Bilateral leg pain Carotid [...] 2013 SOB (shortness of breath) Stroke ([facility]) Varicose veins of bilateral lower extremities with other complications Weight gain with edema PAST SURGICAL HISTORY: Past Surgical History: Procedure Laterality Date APPENDECTOMY CARDIAC VALVE REPLACEMENT 1999 CARDIAC VALVE REPLACEMENT 2013 CARDIOVERSION EXTERNAL 10/01/2015 CARDIOVERSION EXTERNAL 04/14/2012 COLONOSCOPY N/A 03/18/2021 COLONOSCOPY (Incomplete) performed by Kilo Navarro MD at [facility] OR COLONOSCOPY N/A 01/27/2022 COLONOSCOPY WITH COLD SNARE POLYPECTOMY performed by Kilo Navarro MD at [facility] OR HIP ARTHROPLASTY Left KNEE ARTHROPLASTY [...] encounter of 01/26/23 ECG 12 lead Narrative [place] [address] [address] Test Date: 2023-01-26 Pat Name: OBIE SIMS Department: 3 Room: EXAM 707 Gender: Male Lean Manufacturing Leader: GERMAINE: 1955 Requested By: URI BABB Order Number: [id number] Reading MD: Measurements Intervals Chambers Rate: 99 P: -10 NE: 232 QRS: -18 QRSD: 137 T: 123 [...] XR CHEST PORTABLE Final Result by User, [id number] (01/27 1816) CLINICAL INDICATION: 67-YEAR-OLD MALE. FLUID [...] - sent from office for admission to [facility] due to concern for worsening fluid overload. [RT] 1730 SpO2: 94 % 94% on RA with RR 20 [RT] 1750 ECG 12 lead Rate 99. NE 232. QRS 137. QTc 406.Sinus rhythm with occasional PVC and prolonged NE interval. [RT] 1751 Home dose of norco [...] LE pain which we discussed his continued [place] use and need to continue his fluid offloading with his lasix and PT/OT as tolerated. Does not want acute rehab or group home placement - discussed admission for placement and [...] st Contact Info) Description 09/25/2024 2:00 PM BOMB LOADER Appointment [facility] [address] [facility] [place] [address] Zayra Powell FNP [address] [facility] [place] [address] 10/16/2024 3:30 PM BOMB LOADER Office Visit [facility] [address] [facility] [place] [phone] Brit Gonzáles MD [address] [place] [address] documented as of this encounter Procedures Procedure [...] 3,539(H) <125 PG/ML 01/26/2023 6:06 PM CDT [facility] Comment: CUT POINTS ESTABLISHED BY INTERNATIONAL [...] LABORATORY Final Re sult Performing Organization Address City/[facility]/ZIP Co de Phone Number [facility] [address] [place] [address], * TROPONIN, QUANT (01/26/2023 5:39 PM CDT) TROPONIN I HIGH SENSITIVITY 40 0 - 76 ng/L 01/26/2023 6:06 PM CDT [facility] 01/26/2023 5:39 PM CDT Uri Kaylene Leocy DO LABORATORY Final Re sult Performing Organization Address City/[facility]/ZIP Co de Phone Number [facility] [address] [place] [address], * (ABNORMAL) COMPREHENSIVE METABOLIC PANEL (01/26/2023 5:39 PM CDT) SODIUM S/P/B 133(L) 136 - 145 MMOL/L 01/26/2023 6:06 PM CDT [facility] POTASSIUM S/P/B 4.5 3.5 - 5.1 MMOL/L 01/26/2023 6:06 PM T [facility] CHLORIDE S/P/B 95(L) 98 - 107 MMOL/L 01/26/2023 6:06 PM T [facility] CO2 28.0 21.0 - 32.0 MMOL/L 01/26/2023 6:06 PM T [facility] GLUCOSE 127(H) 70 - 99 MG/DL 01/26/2023 6:06 PM [facility] Comment: FASTING GLUCOSE 100 TO 125 MG/DL IS CONSISTENT WITH IMPAIRED FASTING GLUCOSE. FASTING GLUCOSE >125 MG/DL IS CONSISTENT WITH DIABETES. RANDOM GLUCOSE >200 MG/DL WITH HYPERGLYCEMIC SYMPTOMS IS CONSISTENT WITH DIABETES. PER ADA GUIDELINES BUN 36(H) 6 - 24 MG/DL 01/26/2023 6:06 PM T [facility] CREATININE S/P/B 2.13(H) 0.70 - 1.30 MG/DL 01/26/2023 6:06 PM T [facility] CALCIUM S/P/B 9.5 8.4 - 10.5 MG/DL 01/26/2023 6:06 PM [facility] BILIRUBIN TOTAL S/P/B 1.1(H) 0.2 - 1.0 MG/DL 01/26/2023 6:06 PM [facility] Comment: THIS ASSAY IS NOT RECOMMENDED FOR PATIENTS UNDERGOING TREATMENT WITH ELTROMBOPAG DUE TO THE POTENTIAL FOR FALSELY ELEVATED RESULTS. ALKALINE PHOSPHATASE S/P/B 161(H) 45 - 115 U/L 01/26/2023 6:06 PM T [facility] AST 27 15 - 37 U/L 01/26/2023 6:06 PM T [facility] ALT 14(L) 16 - 63 U/L 01/26/2023 6:06 PM [facility] TOTAL PROTEIN S/P/B 8.0 6.4 - 8.2 G/DL 01/26/2023 6:06 PM T [facility] ALBUMIN S/P/B 3.3(L) 3.4 - 5.0 G/DL 01/26/2023 6:06 PM CDT [facility] ANION GAP 10.0 5.0 - 15.0 MMOL/L 01/26/2023 6:06 PM CDT [facility] OSMOLALITY (CALC) 286 MOSM/KG 023 6:06 PM CDT [facility] Comment:REFERENCE RANGE NOT ESTABLISHED GFR ESTIMATE 33(L) >89 ML/MIN/1. 73 M2 01/26/2023 6:06 PM CDT [facility] GFR NOTES GFR REFERENCE S: 01/26/2023 6:06 PM CDT [facility] Comment: THE ESTIMATED GFR IS CALCULATED [...] Uri Babb DO LABORATORY Final Re sult [facility] [address] [place] [address], * (ABNORMAL) CBC W/DIFF AUTOMATED (01/26/2023 5:39 PM CDT) WBC 8.91 4.00 - 10.80 x10'3/uL 01/26/2023 5:52 PM CDT [facility] RBC 3.82(L) 4.50 - 6.10 x10'6/uL 01/26/2023 5:52 PM CDT [facility] HGB 8.6(L) 13.0 - 18.0 G/DL 01/26/2023 5:52 PM CDT [facility] HCT 29.9(L) 37.0 - 52.0 % 01/26/2023 5:52 PM CDT [facility] MCV 78.3 78.0 - 100.0 FL 01/26/2023 5:52 PM CDT [facility] MCH 22.5(L) 27.0 - 31.0 PG 01/26/2023 5:52 PM CDT [facility] MCHC 28.8(L) 33.0 - 36.0 G/DL 01/26/2023 5:52 PM CDT [facility] RDW 18.6(H) 11.5 - 14.5 % 01/26/2023 5:52 PM CDT [facility] PLT 186 150 - 350 x10'3/uL 01/26/2023 5:52 PM CDT [facility] MPV 10.9(H) 7.4 - 10.4 FL 01/26/2023 5:52 PM CDT [facility] CBC COMMENT NORMAL REFERENCE RANGE NOT ESTABLISHED FOR THE PROPORTIONAL LEUKOCYTE DIFFERENTIAL. 01/26/2023 5:52 PM CDT [facility] NEUTROPHILS % 67.0 % 01/26/2023 6:01 PM CDT [facility] LYMPHOCYTES % 15.2 % 01/26/2023 6:01 PM CDT [facility] MONOCYTES % 14.1 % 01/26/2023 6:01 PM CDT [facility] EOSINOPHILS % 2.8 % 01/26/2023 6:01 PM CDT [facility] BASOPHILS % 0.7 % 01/26/2023 6:01 PM CDT [facility] IMMATURE GRANS % 0.2 % 01/27/20 6:01 PM CDT [facility] NRBC 0.0 % 01/26/2023 6:01 PM CDT [facility] ABS. NEUTROPHILS 5.97 1.60 - 8.30 x10'3/uL 01/26/2023 6:01 PM CDT [facility] ABS. LYMPHOCYTES 1.35 0.80 - 4.70 x10'3/uL 01/26/2023 6:01 PM CDT [facility] ABS. MONOCYTES 1.26 0.00 - 1.50 x10'3/uL 01/26/2023 6:01 PM CDT [facility] ABS. EOSINOPHILS 0.25 0.00 - 0.40 x10'3/uL 01/26/2023 6:01 PM CDT [facility] ABS. BASOPHILS 0.06 0.00 - 0.20 x10'3/uL 01/26/2023 6:01 PM CDT [facility] ABS. IMMATURE GRANULOCYTES 0.02 0.00 - 0.03 x10'3/uL 01/26/2023 6:01 PM CDT [facility] ABS. NUCLEATED RBC'S 0.00 0.00 x10'3/uL 01/26/2023 6:01 PM CDT [facility] PLT MORPH. NORMAL 01/26/2023 6:01 PM CDT [facility] RBC MORPHOLOGY 1+ 01/26/2023 6:01 PM CDT [facility] Comment:HYPOCHROMASIA 01/26/2023 5:39 PM CDT us Uri Babb DO LABORATORY Final Re sult [facility] [address] [place] [address], * ECG 12 lead (01/26/2023 5:33 PM CDT) 01/26/2023 5:33 PM CDT Narrative [facility] - 01/27/2023 8:23 PM CDT ? [facility] ?[address] [place], [place] ??[address] ? Test Date: ?2023-01-26 Pat Name: ? OBIE SIMS ?Department: ?? 3 ? Room: ? EXAM 707 Gender: ? Male ? Lean Manufacturing Leader: ?? : ?1955 ? Requested By: URI HOLLEY Order Number: [id number] ? Reading MD: ?? Sharon Willis ? Measurements Intervals ?Chambers ? Rate: ? 99 ? P: ?-10 NE: ? 232 ?QRS: ?-18 QRSD: ? 137 ?T: ?123 QT: ? 350 ? QTc: ?449 ? Interpretive Statements SINUS RHYTHM WITH FIRST DEGREE AV BLOCK WITH OCCASIONAL VENTRICULAR PREMATURE COMPLEXES INTRAVENTRICULAR CONDUCTION DELAY DATA QUALITY MAY AFFECT INTERPRETATION Procedure Note Sharon Willis MD - 01/27/[address] [place] [address] Test Date: 2023-01-26 Pat Name: OBIE SIMS Department: 3 Room: [place] [address] Gender: Male Lean Manufacturing Leader: : 1955 Requested By: URI BABB Order Number: [id number] Reading MD: Sharon Willis Measurements Intervals Chambers Rate: 99 P: -10 NE: 232 QRS: -18 QRSD: 137 T: 123 QT: 350 QTc: 449 Interpretive Statements SINUS RHYTHM WITH FIRST DEGREE AV BLOCK WITH OCCASIONAL VENTRICULARPREMATURE COMPLEXES INTRAVENTRICULAR CONDUCTION DELAY DATA QUALITY MAY AFFECT INTERPRETATION us Uri Babb DO ECG ORDERABLES Final Re sult [facility] documented in this encounter [...] documented as of this encounter Care Teams Ship Steward Relationship Specialty Start Date End Date Megan Infante MD [address] [facility] [place] [address] PCP - General FAMILY PRACTICE 04/06/16 Piyush Pandey MD [place] Upholstery Cutter CARDIOVASCULAR DISEASE 04/06/16 12/28/23 Sharmila Davis, SOCIOLOGY RESEARCH ASSISTANT, BOX PRINTER-C [address] [place] [id number] [place] [phone] NURSE PRACTITIONER 01/04/17 04/03/24 Linda Block MD [address] [address] Council Upholstery Cutter CLINICAL CARDIAC ELECTROPHYSIOLOGY 02/08/17 04/12/23 Jeff Grace MD [address] [phone] Consulting Physician INTERNAL MEDICINE 02/20/19 3 Zaki Ortiz MD [address] [facility] [address] [place] [phone] Consulting Physician PULMONARY DISEASE 07/12/19 Concetta Acevedo MD [address] [place] [address] Surgeon NEUROLOGICAL SURGERY 12/16/22 documented as of this encounter
--- OUTSIDE RECORDS SUMMARY | 2024-09-03 20:39 | XMS_ITS | Encounter Summary ---
Author Organization [facility] Address [facility] [place] [address] [place] [address] Care Team Providers Care Boarding House Cook Name Role Phone Piyush Pandey MD Unavailable Unavailabl e Megan Infante MD Primary Care Provider [phone] Sharmila Davis APRN, POWDER CORE TESTER-C Unavailable Linda Block MD Unavailable [phone] Jeff Grace MD Unavailable Zaki Ortiz MD Unavailable [phone] RomeoConcetta Pond MD Unavailable + [phone] Reason for Visit * Reason Onset Date Comments Other 01/21/2023 Encounter Details Date Type Department Care Team ([facility] st Contact Info) Description 01/21/2023 Telephone [facility] [address] [place] [address] Sharmila Davis APRN, POWDER CORE TESTER-C [address] [facility] [address] [place] [address] Other Social History Tobacco Use [...] slept in a skilled nursing (including now)? No 12/28/2022 Sex and Gender [...] DATE/TIME:01/21/2023 at 9:15 am CALLER: pt #: [phone] PROVIDER/NEW PT: Sharmila Davis REASON FOR CALL: confirming appt REQUEST HANDLED AND HOW: confirmed documented in this encounter Plan of Treatment Upcoming Encounters Date Type Department Care Team (Late st Contact Info) Description 09/25/2024 2:00 PM ENGINE INSTALLER Appointment [facility] [address] [place] [address] Zayra Powell, DIRECTOR OF DESIGN [address] [place], [place] [phone] 10/16/2024 3:30 PM ENGINE INSTALLER Office Visit [facility] [address] [place] [phone] Brit Gonzáles MD [address] [place] [address] documented as of this encounter Visit Diagnoses Not on filedocumented in this encounter Additional Health Concerns Assessment Noted Time PHQ-9 Depression Total Score: 0 12/02/19 22 1:18 PM CDT documented as of this encounter Care Teams Boarding House Cook Relationship Specialty Start Date End Date Megan Infante MD [address] [place] [address] PCP - General FAMILY PRACTICE 04/06/16 Piyush Pandey MD [place] [employer] Brushing Machine Operator CARDIOVASCULAR DISEASE 04/06/16 12/28/23 Sharmila Davis, DANNY, POWDER CORE TESTER-C [address] [facility] [address] [place] [phone] NURSE PRACTITIONER 01/04/17 04/03/24 Linda Block MD [address] [facility] [address] [place] [phone] [place] Brushing Machine Operator CLINICAL CARDIAC ELECTROPHYSIOLOGY 02/08/17 04/12/23 Jeff Grace MD [address] [facility] [address] [place] [phone] Consulting Physician INTERNAL MEDICINE 02/20/19 3 Zaki Ortiz MD [address] [facility] [address] [place] [address] Consulting Physician PULMONARY DISEASE 07/12/19 Concetta Acevedo MD [address] [place] [address] Surgeon NEUROLOGICAL SURGERY 12/16/22 documented as of this encounter
--- OUTSIDE RECORDS SUMMARY | 2024-09-03 20:39 | XMS_ITS | Encounter Summary ---
Author Organization [facility] Address [address] [place] [address]. [place] [address] [place] [address] Care Team Providers Care Bobbin Fixer Name Role Phone Piyush Pandey MD Unavailable Unavailabl e Megan Infante MD Primary Care Provider [phone] Sharmila Davis APRN, NP-C Unavailable Linda Block MD Unavailable [phone] Jeff Grace MD Unavailable Zaki Ortiz MD Unavailable [phone] Concetta Acevedo MD Unavailable + [phone] Reason for Visit * Reason Onset Date Comments Appointment Request 01/06/2023 2 wk dischar ge follow up Encounter Details Date Type Department Care Team (Late st Contact Info) Description 01/06/2023 Telephone [facility]eld [address] [place] [address] Piyush Pandey MD Appointment Request [...] Returned call to Oren Harris- sent to [facility] Message left with scheduled f/u appointment for 01/22/23 at 9:30 am with Sharmila Davis NP at [facility]. Requested a call back to confirm. * Bethanie Lay - 01/06/2023 4:16 PM CDT Oren called for a 2 week hospital discharge follow up appt with Dr. Pandey. Please call back. documented in this encounter Plan of Treatment Upcoming Encounters Date Type Department Care Team (Late st Contact Info) Description 09/25/2024 2:00 [address] [facility] [address] [place] [address] Zayra Powell, CHANNEL INSTALLER [address] [place] [address] 10/16/2024 3:30 PM DOCK OPERATOR Office Visit [facility] [address] [place] [address] Brit Gonzáles MD [address] [place], [place] [phone] documented as of this encounter Visit Diagnoses Not on filedocumented in this encounter Additional Health Concerns Assessment Noted Time PHQ-9 Depression Total Score: 0 12/02/19 22 1:18 PM CDT documented as of this encounter Care Teams Bobbin Fixer Relationship Specialty Start Date End Date Megan Infante MD [address] [place] [address] PCP - General FAMILY PRACTICE 04/06/16 Piyush Pandey MD [place] [employer] Preparer CARDIOVASCULAR DISEASE 04/06/16 12/28/23 Sharmila Davis APRN, NOZZLE AND SLEEVE WORKER-C [address] [place] [address] NURSE PRACTITIONER 01/04/17 04/03/24 Linda Block MD [address] [place] [address] [place] [employer] Preparer CLINICAL CARDIAC ELECTROPHYSIOLOGY 02/08/17 04/12/23 Jeff Grace MD [address] [place] [address] Consulting Physician INTERNAL MEDICINE 02/20/19 3 Zaki Ortiz MD [address] [place] [address] Consulting Physician PULMONARY DISEASE 07/12/19 Concetta Acevedo MD [address] [place] [phone] Surgeon NEUROLOGICAL SURGERY 12/16/22 documented as of this encounter
--- OUTSIDE RECORDS SUMMARY | 2024-09-03 20:39 | XMS_ITS | Encounter Summary ---
Author Organization [facility] Address [address] [place] [address]. [place] [address] [place] [address] Care Team Providers Care Continuous Improvement Coordinator Name Role Phone Piyush Pandey MD Unavailable Unavailabl e Megan Infante MD Primary Care Provider [phone] Sharmila Davis APRN, NP-C Unavailable [phone] Linda Block MD Unavailable [phone] Jeff Grace MD Unavailable Zaki Ortiz MD Unavailable [phone] Romeo-Concetta Pond MD Unavailable + [phone] Encounter Details Date Type Department Care Team (Late st Contact Info) Description 01/21/2023 12:42 PM CDT - 01/21/2023 11:59 PM CDT Hospital Encounter [facility] [address] [place] [address] Megan Infante MD [address] [place] [address] Discharge Disposition: Home or Self Care (Routine [...] for 30 days. 45 tablet 01/04/2023 3 losartan (COZAAR) 25 MG tablet [...] st Contact Info) Description 09/25/2024 2:00 PM CREDIT CHARGE AUTHORIZER Appointment [facility] [address] [place] [address] Zayra Powell, [facility] [address] [place] [address] 10/16/2024 3:30 PM CREDIT CHARGE AUTHORIZER Office Visit [facility] [address] [place] [address] Brit Gonzáles MD [address] [place] [address] documented as of this encounter Procedures Procedure [...] - 12.5 SEC 01/21/2023 1:39 PM CDT [facility] INR 5.6(HH) 0.8 - 1.0 01/21/2023 1:39 PM CDT [facility] Comment: CRITICAL VALUE CALLED TO PAUL Hugo 01/21/23 AFW READ BACK AND VERIFIED 01/21/2023 12:0 0 PM CDT us Megan Infante MD LABORATORY Final Result [facility] [address] [place] [address], * (ABNORMAL) FERRITIN (01/21/2023 12:00 PM CDT) FERRITIN 12.9(L) 26 - 388 NG/ML 01/21/2023 1:25 PM CDT [facility] 01/21/2023 12:0 0 PM CDT us Megan Infante MD LABORATORY Final Result Performing Organization Address [facility]/ZIP Co de Phone Number [facility] [address] [place] [address], * (ABNORMAL) CBC W/DIFF AUTOMATED (01/21/2023 12:00 PM CDT) WBC 7.34 4.00 - 10.80 x10'3/uL 01/21/2023 1:22 PM CDT [facility] RBC 3.81(L) 4.50 - 6.10 x10'6/uL 01/21/2023 1:22 PM CDT [facility] HGB 8.6(L) 13.0 - 18.0 G/DL 01/21/2023 1:22 PM CDT [facility] HCT 30.4(L) 37.0 - 52.0 % 01/21/2023 1:22 PM CDT [facility] MCV 79.8 78.0 - 100.0 FL 01/21/2023 1:22 PM CDT [facility] MCH 22.6(L) 27.0 - 31.0 PG 01/21/2023 1:22 PM CDT [facility] MCHC 28.3(L) 33.0 - 36.0 G/DL 01/21/2023 1:22 PM CDT [facility] RDW 18.4(H) 11.5 - 14.5 % 01/21/2023 1:22 PM CDT [facility] PLT 180 150 - 350 x10'3/uL 01/21/2023 1:22 PM CDT [facility] MPV 10.9(H) 7.4 - 10.4 FL 01/21/2023 1:22 PM CDT [facility] CBC COMMENT NORMAL REFERENCE RANGE NOT ESTABLISHED FOR THE PROPORTIONAL LEUKOCYTE DIFFERENTIAL. 01/21/2023 1:22 PM CDT [facility] NEUTROPHILS % 69.5 % 01/21/2023 1:42 PM CDT [facility] LYMPHOCYTES % 14.6 % 01/21/2023 1:42 PM CDT [facility] MONOCYTES % 12.1 % 01/21/2023 1:42 PM CDT [facility] EOSINOPHILS % 3.0 % 01/21/2023 1:42 PM CDT [facility] BASOPHILS % 0.4 % 01/21/2023 1:42 PM CDT [facility] IMMATURE GRANS % 0.4 % 01/22/20 1:42 PM CDT [facility] NRBC 0.0 % 01/21/2023 1:42 PM CDT [facility] ABS. NEUTROPHILS 5.10 1.60 - 8.30 x10'3/uL 01/21/2023 1:42 PM CDT [facility] ABS. LYMPHOCYTES 1.07 0.80 - 4.70 x10'3/uL 01/21/2023 1:42 PM CDT [facility] ABS. MONOCYTES 0.89 0.00 - 1.50 x10'3/uL 01/21/2023 1:42 PM CDT [facility] ABS. EOSINOPHILS 0.22 0.00 - 0.40 x10'3/uL 01/21/2023 1:42 PM CDT [facility] ABS. BASOPHILS 0.03 0.00 - 0.20 x10'3/uL 01/21/2023 1:42 PM CDT [facility] ABS. IMMATURE GRANULOCYTES 0.03 0.00 - 0.03 x10'3/uL 01/21/2023 1:42 PM CDT [facility] ABS. NUCLEATED RBC'S 0.00 0.00 x10'3/uL 01/21/2023 1:42 PM CDT [facility] PLT MORPH. NORMAL 01/21/2023 1:42 PM CDT [facility] RBC MORPHOLOGY 1+ 01/21/2023 1:42 PM CDT [facility] Comment: RODRI CELLS 1+ SCHISTOCYTES 1+ OVALOCYTES 1+ HYPOCHROMASIA 2+ POIKILOCYTOSIS 2+ ANISOCYTOSIS 01/21/2023 12:0 0 PM CDT us Megan Infante MD LABORATORY Final Result Performing Organization Address [facility] Co de Phone Number [facility] [address] [place], [place] [address] [address], * (ABNORMAL) RETICULOCYTE CT, AUTO (01/21/2023 12:00 PM CDT) RETICULOCYTE COUNT 1.3 0.7 - 2.3 % 01/21/2023 1:22 PM CDT [facility] ABSOLUTE RETICULOCYTE 0.05 0.03 - 0.11 x10'6/uL 01/21/2023 1:22 PM CDT [facility] IMMATURE RETIC FRACTION 15.2(H) 2.3 - 13.4 % 01/21/2023 1:22 PM CDT [facility] RETIC HGB 19.3(L) 28.0 - 35.0 PG 01/21/2023 1:22 PM CDT [facility] 01/21/2023 12:0 0 PM CDT us Megan Infante MD LABORATORY Final Result Performing Organization Address City/[facility]/ZIP Co de Phone Number [facility] [place] [address], [place] [phone] * (ABNORMAL) IRON SATURATION PNL (FE/TIBC/SAT) (01/21/2023 12:00 PM CDT) IRON 23(L) 65 - 175 MCG/DL 01/21/2023 1:11 PM CDT [facility] IRON BINDING CAPACITY 410 250 - 450 MCG/DL 01/21/2023 1:11 PM CDT [facility] IRON SATURATION 6 % 1:11 PM CDT [facility] Comment:REFERENCE RANGE NOT ESTABLISHED 01/21/2023 12:0 0 PM CDT us Megan Infante MD LABORATORY Final Result [facility] [address] [place] [address], * BLOOD SMEAR INTERPRETATION BY (01/21/2023 12:00 AM CDT) PATHOLOGY [facility] ? Department of Laboratory Medicine ?[address] [facility] [facility] ?[place] [address] ? , extension [phone] ? Pathology Report ? Peripheral Smear Report Name: OBIE SIMS ?Specimen #: [id number] Age: 12 1955 (Age: 67) ? Location: Sex: M ?Procedure Date: 01/21/2023 [facility] #: [id number] ?Date Received: 01/25/2023 Date Reported: 01/25/2023 Provider: [...] were performed at [facility], [address] [facility], [place], [place], [address]. [facility] 01/21/2023 01/25/2023 11: 01 AM CDT Comment:Peripheral blood Megan Infante MD LABORATORY Final Result [facility] [address] [place] [address], [id number] documented in this encounter Visit Diagnoses Diagnosis Low hemoglobin Anemia, unspecified A-fib (CMS/HCC HHS/HCC) Atrial fibrillation documented in this encounter Additional Health Concerns Assessment Noted Time PHQ-9 Depression Total Score: 0 12/02/19 22 1:18 PM CDT documented as of this encounter Care Teams Continuous Improvement Coordinator Relationship Specialty Start Date End Date Megan Infante MD [address] [place] [address] PCP - General FAMILY PRACTICE 04/06/16 Piyush Pandey MD [place] Gro[employer] Clerk Checking CARDIOVASCULAR DISEASE 04/06/16 12/28/23 Sharmila Davis, DANNY, HEEL TURNER-C [address] [place] [address] NURSE PRACTITIONER 01/04/17 04/03/24 Linda Block MD [address] [facility] [address] [place] [address] [place] Grocery Clerk Checking CLINICAL CARDIAC ELECTROPHYSIOLOGY 02/08/17 04/12/23 Jeff Grace MD [address] [facility] [address] [place] [address] Consulting Physician INTERNAL MEDICINE 02/20/19 3 Zaki Ortiz MD [address] [facility] [address] [place] [address] Consulting Physician PULMONARY DISEASE 07/12/19 Concetta Acevedo MD [address] [place] [address] Surgeon NEUROLOGICAL SURGERY 12/16/22 documented as of this encounter
--- OUTSIDE RECORDS SUMMARY | 2024-09-03 20:39 | XMS_ITS | Encounter Summary ---
Author Organization [facility] Address [facility]ly [facility] [facility] [place] [address] [place] [address] Care Team Providers Care Bean Snipper Name Role Phone Piyush Pandey MD Unavailable Unavailabl e Megan Infante MD Primary Care Provider [phone] Sharmila Davis APRN, DISPATCHER SERVICE-C Unavailable Linda Block MD Unavailable [phone] Jeff Grace MD Unavailable Zaki Ortiz MD Unavailable [phone] RomeoConcetta Pond MD Unavailable + [phone] Reason for Visit * Reason Onset Date Comments Other 01/19/2023 Why this appt Fr nadia Encounter Details Date Type Department Care Team ([facility] st Contact Info) Description 01/19/2023 Telephone [facility] ield [address] [place] [address] Sharmila Davis, DANNY, DISPATCHER SERVICE-C [address] [facility] [facility] [address] [place] [address] Other (Why this appt Wednesday) [...] or slept in a fci (including now)? No 12/28/2022 Sex and Gender [...] Author Status No 12/28/2022 6:30 PM CDT Inag Moseley RN Active * Do you have [...] 11:11 AM CDT VOICEMAIL CALLER: Pt PHONE: [phone] MESSAGE: Pt called inquiring why he has an appt Wednesday (per schedule, he also has one later this month with Dr. Pandey in [place]). HOW HANDLED: Forwarded to Sharmila Davis NP, Katherin nurse. documented in this encounter Plan of Treatment Upcoming Encounters Date Type Department Care Team (Late st Contact Info) Description 09/25/2024 2:00 PM PRESETTER OPERATOR Appointment [facility] [address] [place] [address] Zayra Powell, CHIEF DISPATCHER [address] [place], [place] [address] 10/16/2024 3:30 PM PRESETTER OPERATOR Office Visit [facility] [address] [place] [address] Brit Gonzáles MD [address] [place] [address] documented as of this encounter Visit Diagnoses Not on filedocumented in this encounter Additional Health Concerns Assessment Noted Time PHQ-9 Depression Total Score: 0 12/02/19 22 1:18 PM CDT documented as of this encounter Care Teams Bean Snipper Relationship Specialty Start Date End Date Megan Infante MD [address] [place] [address] PCP - General FAMILY PRACTICE 04/06/16 Piyush Pandey MD [place] [facility] Coder CARDIOVASCULAR DISEASE 04/06/16 12/28/23 Sharmila Davis APRN, DISPATCHER SERVICE-C [address] [place] [address] [place] [address] NURSE PRACTITIONER 01/04/17 04/03/24 Linda Block MD [address] [facility] [address] [place] [address] [place] [facility] Coder CLINICAL CARDIAC ELECTROPHYSIOLOGY 02/08/17 04/12/23 Jeff Grace MD [address] [facility] [address] [place] [address] Consulting Physician INTERNAL MEDICINE 02/20/19 3 Zaki Ortiz MD [address] [facility] [address] [place] [address] Consulting Physician PULMONARY DISEASE 07/12/19 Concetta Acevedo MD [address] [place] [address] Surgeon NEUROLOGICAL SURGERY 12/16/22 documented as of this encounter
--- OUTSIDE RECORDS SUMMARY | 2024-09-03 20:39 | XMS_ITS | Encounter Summary ---
Author Organization [facility] Address Formerly [facility] [facility] [place] [address] [place] [address] Care Team Providers Care Time Study Observer Name Role Phone Piyush Pandey MD Unavailable Unavailabl e Megan Infante MD Primary Care Provider [phone] Sharmila Davis APRN, NP-C Unavailable [phone] Linda Block MD Unavailable [phone] Jeff Grace MD Unavailable Zaki Ortiz MD Unavailable [phone] Romeo-Concetta Pond MD Unavailable + [phone] Encounter Details Date Type Department Care Team [...] st Contact Info) Description 09/25/2024 2:00 PM BANQUET BARTENDER Appointment [facility] [address] [place] [address] Zayra Powell, [facility] [address] [place] [address] 10/16/2024 3:30 PM BANQUET BARTENDER Office Visit [facility] [address] [place] [address] Brit Gonzáles MD [address] [place] [address] documented as of this encounter Visit Diagnoses Not on filedocumented in this encounter Additional Health Concerns Assessment Noted Time PHQ-9 Depression Total Score: 0 12/02/19 22 1:18 PM CDT documented as of this encounter Care Teams Time Study Observer Relationship Specialty Start Date End Date Megan Infante MD [address] [facility] [place] [address] PCP - General FAMILY PRACTICE 04/06/16 Piyush Pandey MD [place] Air Tank Assembler CARDIOVASCULAR DISEASE 04/06/16 12/28/23 Sharmila Davis, FRAUD MANAGER, BUILDING ENERGY RETROFIT TECHNICIAN-C [address] [address] NURSE PRACTITIONER 01/04/17 04/03/24 Linda Block MD [address] [address] [place] Air Tank Assembler CLINICAL CARDIAC ELECTROPHYSIOLOGY 02/08/17 04/12/23 Jeff Grace MD [address] [address] Consulting Physician INTERNAL MEDICINE 02/20/19 3 Zaki Ortiz MD [address] [address] Consulting Physician PULMONARY DISEASE 07/12/19 Concetta Acevedo MD [address] [place] [address] Surgeon NEUROLOGICAL SURGERY 12/16/22 documented as of this encounter
--- OUTSIDE RECORDS SUMMARY | 2024-09-03 20:39 | XMS_ITS | Encounter Summary ---
Author Organization [facility] Address [address] [place] [address]. [place] [address] [place] [address] Care Team Providers Care Textile Technologist Name Role Phone Piyush Pandey MD Unavailable Unavailabl e Megan Infante MD Primary Care Provider [phone] Sharmila Davis APRN, NP-C Unavailable [phone] Linda Block MD Unavailable [phone] Jeff Grace MD Unavailable Zaki Ortiz MD Unavailable [phone] RomeoConcetta Pond MD Unavailable + [phone] Reason for Visit * Reason Onset Date Comments Reschedule 02/01/2023 Encounter Details Date Type Department Care Team (Late st Contact Info) Description 02/01/2023 Telephone [facility] [address] [place] [address] Piyush Pandey MD Reschedule Social [...] 02/08 to 03/08 at 3 pm in [place] Phoned patient, agrees to date/time; requested a mailed reminder documented in this encounter Plan of Treatment Upcoming Encounters Date Type Department Care Team (Late st Contact Info) Description 09/25/2024 2:00 PM HELPER CHICKEN FARM Appointment [facility] [address] [place] [address] Zayra Powell, [facility] [address] [place] [address] 10/16/2024 3:30 PM HELPER CHICKEN FARM Office Visit [facility] [address] [address] Brit Gonzáles MD [address] [place] [address] documented as of this encounter Visit Diagnoses Not on filedocumented in this encounter Additional Health Concerns Assessment Noted Time PHQ-9 Depression Total Score: 0 12/02/19 22 1:18 PM CDT documented as of this encounter Care Teams Textile Technologist Relationship Specialty Start Date End Date Megan Infante MD [address] [place] [address] PCP - General FAMILY PRACTICE 04/06/16 Piyush Pandey MD [place] Metal Buildings Assembler CARDIOVASCULAR DISEASE 04/06/16 12/28/23 Sharmila Davis APRN, MANAGER LOAN-C [address] [address] NURSE PRACTITIONER 01/04/17 04/03/24 Linda Block MD [address] [address] [place] [employer] Buildings Assembler CLINICAL CARDIAC ELECTROPHYSIOLOGY 02/08/17 04/12/23 Jeff Grace MD [address] [address] Consulting Physician INTERNAL MEDICINE 02/20/19 3 Zaki Ortiz MD [address] [facility] [address] [address] Consulting Physician PULMONARY DISEASE 07/12/19 Concetta Acevedo MD [address] [place] [address] Surgeon NEUROLOGICAL SURGERY 12/16/22 documented as of this encounter
--- OUTSIDE RECORDS SUMMARY | 2024-09-03 20:39 | XMS_ITS | Encounter Summary ---
Author Organization [facility] Address formerly [facility] [place] [address] [place] [address] Care Team Providers Care Herb Counselor Name Role Phone Piyush Pandey MD Unavailable Unavailabl e Megan Infante MD Primary Care Provider [phone] Sharmila Davis APRN, NUTRITION REPRESENTATIVE-C Unavailable Lidna Block MD Unavailable [phone] Jeff Grace MD Unavailable Zaki Ortiz MD Unavailable [phone] RomeoConcetta Pond MD Unavailable [phone] Jeff Grace MD Unavailable Brit Gonzáles MD Unavailable Encounter Details Date Type Department Care Team (Late st Contact Info) Description 01/21/2023 Abstract [facility] [address] [place] [address] Sharmila Davis APRN, NUTRITION REPRESENTATIVE-C [address] [facility] [address] [place] [address] Social History Tobacco Use Types [...] st Contact Info) Description 09/25/2024 2:00 PM PATIENT ACCESS MANAGER Appointment [facility] [address] [place] [address] Zayra Powell, FIELD PIPE LINES SUPERVISOR [address] [place] [address] 10/16/2024 3:30 PM PATIENT ACCESS MANAGER [facility] [address] [place] [address] Brit Gonzáles MD [address] [place], [place] [address] documented as of this encounter Visit Diagnoses Not on filedocumented in this encounter Additional Health Concerns Assessment Noted Time PHQ-9 Depression Total Score: 0 12/02/19 22 1:18 PM CDT documented as of this encounter Care Teams Herb Counselor Relationship Specialty Start Date End Date Megan Infante MD [address] [facility] [place] [address] PCP - General FAMILY PRACTICE 04/06/16 Piyush Pandey MD [place] Scrapper CARDIOVASCULAR DISEASE 04/06/16 12/28/23 Sharmila Davis, DANNY, NUTRITION REPRESENTATIVE-C [address] [phone] NURSE PRACTITIONER 01/04/17 04/03/24 Linda Block MD [address] [address] [place] Scrapper CLINICAL CARDIAC ELECTROPHYSIOLOGY 02/08/17 04/12/23 Jeff Grace MD [address] [address] Consulting Physician INTERNAL MEDICINE 02/20/19 3 Zaki Ortiz MD [address] [address] Consulting Physician PULMONARY DISEASE 07/12/19 Concetta Acevedo MD [address] [place] [address] Surgeon NEUROLOGICAL SURGERY 12/16/22 Jeff Grace MD [address] [place] [address] Consulting Physician INTERNAL MEDICINE 02/11/23 Brit Gonzáles MD [address] [place] [address] Consulting Physician CARDIOVASCULAR DISEASE 12/29/23 documented as of this encounter
--- OUTSIDE RECORDS SUMMARY | 2024-09-03 20:39 | XMS_ITS | Encounter Summary ---
Author Organization [facility] Address [facility] [place] [address] [place] [address] Care Team Providers Care Soccer Ball Assembler Name Role Phone Piyush Pandey MD Unavailable Unavailabl e Megan Infante MD Primary Care Provider [phone] Sharmila Davis APRN, COMMERCIAL REAL ESTATE ATTORNEY-C Unavailable Linda Block MD Unavailable [phone] Jeff Grace MD Unavailable Zaki Ortiz MD Unavailable [phone] Concetta Acevedo MD Unavailable + [phone] Reason for Visit * Reason Comments Follow Up Recent hospitalizati on Encounter Details Date Type Department Care Team ([facility] st Contact Info) Description 01/22/2023 9:30 AM CDT Office Visit Danni Robledo-Michoacano paul [address] [place] [address] Sharmila Davis APRN, COMMERCIAL REAL ESTATE ATTORNEY-C [address] [facility] [address] [place] [address] Follow Up (Recent hospitalization) Social [...] or slept in a long-term (including now)? No 12/28/2022 Sex and Gender [...] congestive heart failure. He was hospitalized at [facility] from 12/28/2022 to 01/04/2023 for congestive he [...] chronic heart failure, unspecified heart failure type ([facility]/HCC) Anxiety Aortic valve stenosis Arthritis Asthma, mild persistent 04/06/2021 Atrial fibrillation ([facility]/HCC) s/p PVI/[facility] 10/2015 Bilateral leg pain Carotid disease, bilateral ([facility]) CHF (congestive heart failure) ([facility]/HCC) Claudication ([facility]) COPD (chronic obstructive pulmonary disease) ([facility]) Coronary artery disease Diabetes mellitus, type II (CMS/HCC) Edema 04/19/2018 2+ pitting History of blood transfusion Hyperlipidemia Hypertension LV dysfunction Osteoarthritis PAD (peripheral artery disease) (CMS/[facility]) Pneumonia Restless leg syndrome S/P aortic valve replacement with bioprosthetic valve 2013 SOB (shortness of breath) Stroke ([facility]) Varicose veins of bilateral lower [...] failure (CMS/HCC) 2. Coronary artery disease involving [place] coronary artery of [place] heart without angina pectoris 3. S/P aortic valve replacement with bioprosthetic valve 4. Chronic atrial fibrillation (CMS/HCC) 5. Preoperative cardiovascular examination 6. Essential hypertension 7. Mixed hyperlipidemia Referring Provider: No ref. provider found PCP: MEGAN INFANTE MD documented in this encounter Plan of Treatment Upcoming Encounters Date Type Department Care Team (Late st Contact Info) Description 09/25/2024 2:00 PM WIPING CLOTH CUTTER Appointment [facility] [address] [place] [address] Zayra Powell, AERODYNAMICS PROFESSOR [address] [place] [address] 10/16/2024 3:30 PM WIPING CLOTH CUTTER Office Visit [facility] [phone] [place] [address] Brit Gonzáles MD [address] [place] [address] documented as of this encounter Visit Diagnoses Diagnosis Chronic combined systolic and diastolic congestive heart failure (CMS/HCC HHS/HCC)- Primary Chronic combined systolic and diastolic heart failure Coronary artery disease involving [place] coronary artery of [place] heart without angina pectoris S/P aortic valve replacement with bioprosthetic valve Heart valve replaced by other means Chronic atrial fibrillation ([facility]/HCC HHS/HCC) Atrial fibrillation Preoperative cardiovascular examination Pre-operative cardiovascular examination Essential hypertension Unspecified essential hypertension Mixed hyperlipidemia documented in this encounter Additional Health Concerns Assessment Noted Time PHQ-9 Depression Total Score: 0 12/02/19 22 1:18 PM CDT documented as of this encounter Care Teams Soccer Ball Assembler Relationship Specialty Start Date End Date Megan Infante MD [address] [facility] [place] [address] PCP - General FAMILY PRACTICE 04/06/16 Piyush Pandey MD [place] Diving Judge CARDIOVASCULAR DISEASE 04/06/16 12/28/23 Sharmila Davis APRN, COMMERCIAL REAL ESTATE ATTORNEY-C [address] [phone] NURSE PRACTITIONER 01/04/17 04/03/24 Linda Block MD [address] [address] [place] Diving Judge CLINICAL CARDIAC ELECTROPHYSIOLOGY 02/08/17 04/12/23 Jeff Grace MD [address] [address] Consulting Physician INTERNAL MEDICINE 02/20/19 3 Zaki Ortiz MD [address] [address] Consulting Physician PULMONARY DISEASE 07/12/19 Concetta Acevedo MD [address] [place] [address] Surgeon NEUROLOGICAL SURGERY 12/16/22 documented as of this encounter
--- OUTSIDE RECORDS SUMMARY | 2024-09-03 20:39 | XMS_ITS | Encounter Summary ---
Author Organization [facility] Address [address] [place] [address]. [place] [address] [place] [address] Care Team Providers Care District Gauger Name Role Phone Piyush Pandey MD Unavailable Unavailabl e Megan Infante MD Primary Care Provider [phone] Sharmila Davis APRN, NP-C Unavailable [phone] Linda Block MD Unavailable [phone] Jeff Grace MD Unavailable Zaki Ortiz MD Unavailable [phone] Romeo-Concetta Pond MD Unavailable + [phone] Encounter Details Date Type Department Care Team (Late st Contact Info) Description 01/19/2023 3:42 PM CDT - 01/19/2023 11:59 PM CDT Hospital Encounter [facility] [address] [place] [address] Megan Infante MD [address] [place] [address] Discharge Disposition: Home or Self Care (Routine [...] or slept in a m[facility]p (including now)? No 12/28/2022 Sex and Gender [...] Contact Info) Description 09/25/2024 2:[address] App[address] [facility] [address] [place] [address] Zayra Powell, [facility] [address] [place] [address] 10/16/2024 3:30 PM RETAIL BANKER Office Visit [facility] [address] [facility] [place] [address] Brit Gonzáles MD [address] [place] [address] documented as of this encounter Procedures Procedure Name Priority Date/Time Associated Diagnosis Comments PROTHROMBIN TIME, VENOUS Routine 01/19/2023 3:10 PM CDT A-fib (CMS/HCC HHS/HCC) documented in this encounter Results * (ABNORMAL) PROTIME/INR, VENOUS (01/19/2023 3:10 PM CDT) PROTIME 93.5(H) 9.4 - 12.5 SEC 01/19/2023 4:39 PM CDT [facility] INR 8.0(HH) 0.8 - 1.0 01/19/2023 4:39 PM CDT [facility] Comment: CRITICAL VALUE CALLED TO CALLED TO LA NENA MILLER RN 01.19.23 AT 1629 BY SAS READ BACK AND VERIFIED 01/19/2023 3:10 PM CDT us Megan Infante MD LABORATORY Final Result [facility] [place], [place] [address] [phone] documented in this encounter Visit Diagnoses Diagnosis A-fib (CMS/HCC HHS/HCC) Atrial fibrillation documented in this encounter Additional Health Concerns Assessment Noted Time PHQ-9 Depression Total Score: 0 12/02/19 22 1:18 PM CDT documented as of this encounter Care Teams District Gauger Relationship Specialty Start Date End Date Megan Infante MD [address] [place] [address] PCP - General FAMILY PRACTICE 04/06/16 Piyush Pandey MD [place] Animal Science Instructor CARDIOVASCULAR DISEASE 04/06/16 12/28/23 Sharmila Davis APRN, POOL NURSE-C [address] [phone] NURSE PRACTITIONER 01/04/17 04/03/24 Linda Block MD [address] [phone] [employer] Animal Science Instructor CLINICAL CARDIAC ELECTROPHYSIOLOGY 02/08/17 04/12/23 Jeff Grace MD [address] [phone] Consulting Physician INTERNAL MEDICINE 02/20/19 3 Zaki Ortiz MD [address] [phone] Consulting Physician PULMONARY DISEASE 07/12/19 Concetta Acevedo MD [address] [place] [address] Surgeon NEUROLOGICAL SURGERY 12/16/22 documented as of this encounter
--- OUTSIDE RECORDS SUMMARY | 2024-09-03 20:39 | XMS_ITS | Encounter Summary ---
Author Organization [facility] Address [address] [place] [address]. [place] [address] [place] [address] Care Team Providers Care Information Management Manager Name Role Phone Piyush Pandey MD Unavailable Unavailabl e Megan Infanet MD Primary Care Provider [phone] Sharmila Davis APRN, NP-C Unavailable Linda Block MD Unavailable [phone] Jeff Grace MD Unavailable Zaki Ortiz MD Unavailable [phone] Concetta Acevedo MD Unavailable + [phone] Encounter Details Date Type Department Care Team (Late st Contact Info) Description 01/12/2023 12:06 PM CDT - 01/12/2023 11:59 PM CDT Hospital Encounter [facility] [address] [place] [address] Megan Infante MD [address] [place] [address] Discharge Disposition: Home or Self Care (Routine [...] Contact Info) Description 09/25/2024 2:00 PM HIGH RISK CASE MANAGER Appointment [facility] [address] [place] [address] Zayra Powell, [facility] [address] [place] [address] [address] 10/16/2024 3:30 PM HIGH RISK CASE MANAGER Office Visit [facility] [address] [address] Brit Gonzáles MD [address] [place] [address] documented as of this encounter Procedures Procedure Name Priority Date/Time Associated Diagnosis Comments COMPREHENSIVE METABOLIC PANEL Routine 01/12/2023 11:30 AM CDT CHF (congestive heart failure) ([facility] HHS/HCC) CBC W/DIFF AUTOMATED Routine 01/12/2023 11:30 AM CDT CHF (congestive heart failure) ([facility] HHS/HCC) documented in this encounter Results * (ABNORMAL) CBC W/DIFF AUTOMATED (01/12/2023 11:30 AM CDT) WBC 8.45 4.00 - 10.80 x10'3/uL 01/12/2023 12:30 PM CDT [facility] RBC 3.69(L) 4.50 - 6.10 x10'6/uL 01/12/2023 12:30 PM CDT [facility] HGB 8.4(L) 13.0 - 18.0 G/DL 01/12/2023 12:30 PM CDT [facility] HCT 29.7(L) 37.0 - 52.0 % 01/12/2023 12:30 PM CDT [facility] MCV 80.5 78.0 - 100.0 FL 01/12/2023 12:30 PM CDT [facility] MCH 22.8(L) 27.0 - 31.0 PG 01/12/2023 12:30 PM CDT [facility] MCHC 28.3(L) 33.0 - 36.0 G/DL 01/12/2023 12:30 PM CDT [facility] RDW 18.5(H) 11.5 - 14.5 % 01/12/2023 12:30 PM CDT [facility] PLT 206 150 - 350 x10'3/uL 01/12/2023 12:30 PM CDT [facility] MPV 11.2(H) 7.4 - 10.4 FL 01/12/2023 12:30 PM CDT [facility] CBC COMMENT NORMAL REFERENCE RANGE NOT ESTABLISHED FOR THE PROPORTIONAL LEUKOCYTE DIFFERENTIAL. 01/12/2023 12:30 PM CDT [facility] NEUTROPHILS % 72.7 % 01/12/2023 1:04 PM CDT [facility] LYMPHOCYTES % 13.0 % 01/12/2023 1:04 PM CDT [facility] MONOCYTES % 10.9 % 01/12/2023 1:04 PM CDT [facility] EOSINOPHILS % 2.2 % 01/12/2023 1:04 PM CDT [facility] BASOPHILS % 0.7 % 01/12/2023 1:04 PM CDT [facility] IMMATURE GRANS % 0.5 % 01/13/20 1:04 PM CDT [facility] NRBC 0.0 % 01/12/2023 1:04 PM CDT [facility] ABS. NEUTROPHILS 6.14 1.60 - 8.30 x10'3/uL 01/12/2023 1:04 PM CDT [facility] ABS. LYMPHOCYTES 1.10 0.80 - 4.70 x10'3/uL 01/12/2023 1:04 PM CDT [facility] ABS. MONOCYTES 0.92 0.00 - 1.50 x10'3/uL 01/12/2023 1:04 PM CDT [facility] ABS. EOSINOPHILS 0.19 0.00 - 0.40 x10'3/uL 01/12/2023 1:04 PM CDT [facility] ABS. BASOPHILS 0.06 0.00 - 0.20 x10'3/uL 01/12/2023 1:04 PM CDT [facility] ABS. IMMATURE GRANULOCYTES 0.04(H) 0.00 - 0.03 x10'3/uL 01/12/2023 1:04 PM CDT [facility] ABS. NUCLEATED RBC'S 0.00 0.00 x10'3/uL 01/12/2023 1:04 PM CDT [facility] PLT MORPH. NORMAL 01/12/2023 1:04 PM CDT [facility] RBC MORPHOLOGY 1+ 01/12/2023 1:04 PM CDT [facility] Comment:HYPOCHROMASIA 01/12/2023 11:3 0 AM CDT Megan Infante MD LABORATORY Final Result [facility] [address] [place] [address], * (ABNORMAL) COMPREHENSIVE METABOLIC PANEL (01/12/2023 11:30 AM CDT) SODIUM S/P/B 135(L) 136 - 145 MMOL/L 01/12/2023 12:42 PM CDT [facility] POTASSIUM S/P/B 4.5 3.5 - 5.1 MMOL/L 01/12/2023 12:42 PM CDT [facility] CHLORIDE S/P/B 97(L) 98 - 107 MMOL/L 01/12/2023 12:42 PM CDT [facility] CO2 28.7 21.0 - 32.0 MMOL/L 01/12/2023 12:42 PM CDT [facility] GLUCOSE 229(H) 70 - 99 MG/DL 01/12/2023 12:42 PM CDT [facility] Comment: FASTING GLUCOSE 100 TO 125 MG/DL IS CONSISTENT WITH IMPAIRED FASTING GLUCOSE. FASTING GLUCOSE >125 MG/DL IS CONSISTENT WITH DIABETES. RANDOM GLUCOSE >200 MG/DL WITH HYPERGLYCEMIC SYMPTOMS IS CONSISTENT WITH DIABETES. PER ADA GUIDELINES BUN 38(H) 6 - 24 MG/DL 01/12/2023 12:42 PM CDT [facility] CREATININE S/P/B 1.86(H) 0.70 - 1.30 MG/DL 01/12/2023 12:42 PM CDT [facility] CALCIUM S/P/B 9.1 8.4 - 10.5 MG/DL 01/12/2023 12:[address] [facility] BILIRUBIN TOTAL S/P/B 0.9 0.2 - 1.0 MG/DL 01/12/2023 12:[address] [facility] Comment: THIS ASSAY IS NOT RECOMMENDED FOR PATIENTS UNDERGOING TREATMENT WITH ELTROMBOPAG DUE TO THE POTENTIAL FOR FALSELY ELEVATED RESULTS. ALKALINE PHOSPHATASE S/P/B 169(H) 45 - 115 U/L 01/12/2023 12:[address] [facility] AST 22 15 - 37 U/L 01/12/2023 12:[address] [facility] ALT 33 16 - 63 U/L 01/12/2023 12:[address] [facility] TOTAL PROTEIN S/P/B 7.5 6.4 - 8.2 G/DL 01/12/2023 12:[address] [facility] ALBUMIN S/P/B 3.2(L) 3.4 - 5.0 G/DL 01/12/2023 12:[address] [facility] ANION GAP 9.3 5.0 - 15.0 MMOL/L 01/12/2023 12:[address] [facility] OSMOLALITY (CALC) 296 MOSM/KG 023 12:[address] [facility] Comment:REFERENCE RANGE NOT ESTABLISHED GFR ESTIMATE 39(L) >89 ML/MIN/1. 73 M2 01/12/2023 12:[address] [facility] GFR NOTES GFR REFERENCE S: 01/12/2023 12:[address] [facility] Comment: THE [...] CDT Megan Infante MD LABORATORY Final Result [facility] [address] [place] [address], documented in this encounter Visit Diagnoses Diagnosis CHF (congestive heart failure) ([facility]) Congestive heart failure, unspecified documented in this encounter Additional Health Concerns Assessment Noted Time PHQ-9 Depression Total Score: 0 12/02/19 22 1:18 PM CDT documented as of this encounter Care Teams Information Management Manager Relationship Specialty Start Date End Date Megan Infante MD [address] [place] [phone] PCP - General FAMILY PRACTICE 04/06/16 Piyush Pandey MD [place] [employer] Metal Sprayer CARDIOVASCULAR DISEASE 04/06/16 12/28/23 Sharmila Davis APRN, MEDICAL ASST-C [id number] [place] [address] NURSE PRACTITIONER 01/04/17 04/03/24 Linda Block MD [address] [facility] [address] [place] [address] [place] [employer] Metal Sprayer CLINICAL CARDIAC ELECTROPHYSIOLOGY 02/08/17 04/12/23 Jeff Grace MD [address] [facility] [address] [place] [address] Consulting Physician INTERNAL MEDICINE 02/20/19 3 Zaki Ortiz MD [address] [place] [address] Consulting Physician PULMONARY DISEASE 07/12/19 Concetta Acevedo MD [address] [place] [address] Surgeon NEUROLOGICAL SURGERY 12/16/22 documented as of this encounter
--- OUTSIDE RECORDS SUMMARY | 2024-09-03 20:39 | XMS_ITS | Encounter Summary ---
Author Organization [facility] Address [facility] [place] [address] [place] [address] Care Team Providers Care Supervisor Rice Milling Name Role Phone Piyush Pandey MD Unavailable Unavailabl e Megan Infante MD Primary Care Provider [phone] Sharmila Davis APRN, NP-C Unavailable [phone] Linda Block MD Unavailable [phone] Jeff Grace MD Unavailable Zaki Ortiz MD Unavailable [phone] Romeo-Concetta Pond MD Unavailable + [phone] Encounter Details Date Type Department Care Team [...] st Contact Info) Description 09/25/2024 2:00 PM PIVOT END POLISHER Appointment [facility] [address] [place] [address] Zayra Powell, [facility] [address] [place] [address] 10/16/2024 3:30 PM PIVOT END POLISHER Office Visit [facility] [address] [place] [phone] Brit Gonzáles MD 9 [place] [address] documented as of this encounter Visit Diagnoses Not on filedocumented in this encounter Additional Health Concerns Assessment Noted Time PHQ-9 Depression Total Score: 0 12/02/19 22 1:18 PM CDT documented as of this encounter Care Teams Supervisor Rice Milling Relationship Specialty Start Date End Date Megan Infante MD [address] [facility] [place] [address] PCP - General FAMILY PRACTICE 04/06/16 Piyush Pandey MD [place] [employer] Supervisor CARDIOVASCULAR DISEASE 04/06/16 12/28/23 Sharmila Davis, ROCK WOOL APPLICATOR, JUNIOR BUSINESS ANALYST-C [address] [phone] NURSE PRACTITIONER 01/04/17 04/03/24 Linda Block MD [address] [address] [place] [employer] Finishing Supervisor CLINICAL CARDIAC ELECTROPHYSIOLOGY 02/08/17 04/12/23 Jeff Grace MD [address] [address] Consulting Physician INTERNAL MEDICINE 02/20/19 3 Zaki Ortiz MD [address] [address] Consulting Physician PULMONARY DISEASE 07/12/19 Concetta Acevedo MD [address] [place] [address] Surgeon NEUROLOGICAL SURGERY 12/16/22 documented as of this encounter
--- OUTSIDE RECORDS SUMMARY | 2024-09-03 20:39 | XMS_ITS | Encounter Summary ---
Author Organization [facility] Address [facility] [place] [address] [place] [address] Care Team Providers Care Sofa Back Upholsterer Name Role Phone Piyush Pandey MD Unavailable Unavailabl e Megan Infante MD Primary Care Provider [phone] Sharmila Davis APRN, NP-C Unavailable [phone] Linda Block MD Unavailable [phone] Jeff Grace MD Unavailable Zaki Ortiz MD Unavailable [phone] Romeo-Concetta Pond MD Unavailable + [phone] Encounter Details Date Type Department Care Team [...] How often do you attend chur or worship services? More than 4 times per year [...] slept in a residential (including now)? No 02/06/2023 Sex and Gender [...] st Contact Info) Description 09/25/2024 2:00 PM GENERATOR SWITCHBOARD OPERATOR Appointment [facility] [address] [place] [address] Zayra Powell, FEED MILL MANAGER [address] [place] [address] 10/16/2024 3:30 PM GENERATOR SWITCHBOARD OPERATOR Office Visit [facility] [address] [place] [phone] Brit Gonzáles MD [address] [place] [address] documented as of this encounter Visit Diagnoses Not on filedocumented in this encounter Additional Health Concerns Assessment Noted Time PHQ-9 Depression Total Score: 0 12/02/19 22 1:18 PM CDT documented as of this encounter Care Teams Sofa Back Upholsterer Relationship Specialty Start Date End Date Megan Infante MD [address] [place] [address] PCP - General FAMILY PRACTICE 04/06/16 Piyush Pandey MD [place] Alterations Manager CARDIOVASCULAR DISEASE 04/06/16 12/28/23 Sharmila Davis APRN, SENIOR BRAND MANAGER-C [address] [phone] NURSE PRACTITIONER 01/04/17 04/03/24 Linda Block MD [address] [phone] [place] Alterations Manager CLINICAL CARDIAC ELECTROPHYSIOLOGY 02/08/17 04/12/23 Jeff Grcae MD [address] [phone] Consulting Physician INTERNAL MEDICINE 02/20/19 3 Zaki Ortiz MD [address] [phone] Consulting Physician PULMONARY DISEASE 07/12/19 Concetta Acevedo MD [address] [place] [address] Surgeon NEUROLOGICAL SURGERY 12/16/22 documented as of this encounter
--- OUTSIDE RECORDS SUMMARY | 2024-09-03 20:40 | XMS_ITS | Encounter Summary ---
Author Organization [facility] Address [address] [place] [address]. [place] [address] [place] [address] Care Team Providers Care Cat Dog Or Other Pet Groomer Name Role Phone Piyush Pandey MD Unavailable Unavailabl e Megan Infante MD Primary Care Provider [phone] Sharmila Davis APRN, NP-C Unavailable Linda Block MD Unavailable [phone] Jeff Grace MD Unavailable Zaki Ortiz MD Unavailable [phone] Reason for Visit * Reason Onset Date Comments Information 04/17/2022 Encounter Details Date Type Department Care Team (Late st Contact Info) Description 04/17/2022 Telephone [facility] [address] [place] [address] Piyush Pandey MD Information Social History Tobacco [...] st Contact Info) Description 09/25/2024 2:00 PM USER EXPERIENCE ANALYST Appointment [facility] [address] [place] [address] Zayra Powell, [facility] [address] [place] [address] 10/16/2024 3:30 PM USER EXPERIENCE ANALYST Office Visit [facility] [address] [place] [address] Brit Gonzáles MD [address] [place] [address] documented as of this encounter Visit Diagnoses Not on filedocumented in this encounter Additional Health Concerns Assessment Noted Time PHQ-9 Depression Total Score: 0 12/02/19 22 1:18 PM CDT documented as of this encounter Care Teams Cat Dog Or Other Pet Groomer Relationship Specialty Start Date End Date Megan Infante MD [address] [facility] [place] [address] PCP - General FAMILY PRACTICE 04/06/16 Piyush Pandey MD [place] Cephalometric Technician CARDIOVASCULAR DISEASE 04/06/16 12/28/23 Sharmila Davis, DANNY, ELECTRONIC SCALE ASSEMBLER AND TESTER-C [address] [facility] [address] [address] NURSE PRACTITIONER 01/04/17 04/03/24 Linda Block MD [address] [facility] [address] [address] [place] Cephalometric Technician CLINICAL CARDIAC ELECTROPHYSIOLOGY 02/08/17 04/12/23 Jeff Grace MD 9 [facility] [address] [address] Consulting Physician INTERNAL MEDICINE 02/20/19 3 Zaki Ortiz MD [address] [facility] [address] [address] Consulting Physician PULMONARY DISEASE 07/12/19 documented as of this encounter
--- OUTSIDE RECORDS SUMMARY | 2024-09-03 20:40 | XMS_ITS | Encounter Summary ---
Author Organization [facility] Address Psychiatric hospital[address] [facility] [place] [address] [place] [address] Care Team Providers Care Market Sales Manager Name Role Phone Piyush Pandey MD Unavailable Unavailabl e Megan Infante MD Primary Care Provider [phone] Sharmila Davis APRN BLACK ASH BURNER OPERATOR-C Unavailable Linda Block MD Unavailable [phone] Jeff Grace MD Unavailable Zaki Ortiz MD Unavailable [phone] Encounter Details Date Type Department Care Team (Late st Contact Info) Description 03/16/2022 Orders Only [facility] [address] [place] [address], [facility] [address] [place] [address] Jacinto Vega MD [address] [place], [place] [id number] Social History Tobacco Use Types Packs/Day Years [...] st Contact Info) Description 09/25/2024 2:00 PM MFG ASSOC Appointment [facility] [address] [place] [address] Zayra Powell, ELECTRIC CONTAINER TESTER [address] [place] [address] 10/16/2024 3:30 PM MFG ASSOC Office Visit [facility] [address] [place] [address] Brit Gonzáles MD [address] [place] [address] documented as of this encounter Visit Diagnoses Diagnosis Other closed fracture of distal end of right fibula with routine healing, subsequent encounter- Primary documented in this encounter Additional Health Concerns Assessment Noted Time PHQ-9 Depression Total Score: 0 12/02/19 22 1:18 PM CDT documented as of this encounter Care Teams Market Sales Manager Relationship Specialty Start Date End Date Megan Infante MD [address] [facility] [place] [phone] PCP - General FAMILY PRACTICE 04/06/16 Piyush Pandey MD [place] [employer] CARDIOVASCULAR DISEASE 04/06/16 12/28/23 Sharmila Davis, ETYMOLOGY TEACHER, BLACK ASH BURNER OPERATOR-C [address] [facility] [address] [place] [phone] NURSE PRACTITIONER 01/04/17 04/03/24 Linda Block MD [address] [address] [place] [employer] CLINICAL CARDIAC ELECTROPHYSIOLOGY 02/08/17 04/12/23 Jeff Grace MD [address] [facility] [address] [address] Consulting Physician INTERNAL MEDICINE 02/20/19 3 Zaki Ortiz MD [address] [facility] [address] [address] Consulting Physician PULMONARY DISEASE 07/12/19 documented as of this encounter
--- OUTSIDE RECORDS SUMMARY | 2024-09-03 20:40 | XMS_ITS | Encounter Summary ---
Author Organization [facility] Address [address] [place] [address]. [place] [address] [place] [address] Care Team Providers Care Assembler Filters Name Role Phone Piyush Pandey MD Unavailable Unavailabl e Megan Infante MD Primary Care Provider [phone] Sharmila Davis APRN PINEAPPLE PLANTATION MANAGER-C Unavailable [phone] Linda Block MD Unavailable [phone] Jeff Grace MD Unavailable Zaki Ortiz MD Unavailable [phone] Reason for Visit * Reason Comments Fracture CLOSED FRACTURE OF D ISTAL RIGHT FIBULA (DOI: 12/28/2021 Encounter Details Date Type Department Care Team (Latest Contact Info) Description 03/26/2022 1:45 PM CDT Office Visit [facility] [place] [phone] Jacinto Hamilton MD [address] [place], [place] [phone] Fracture (CLOSED FRACTURE OF DISTAL RIGHT FIBULA [...] II (CMS/HCC) ??? 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 COPD (chronic [...] at [facility] OR ??? COLONOSCOPY N/A 01/27/2022 COLONOSCOPY WITH COLD SNARE POLYPECTOMY performed by Kilo Navarro MD at [facility] OR ??? HIP ARTHROPLASTY Left ??? [...] needed for Constipation., Disp: , Rfl: ??? Fqnhfwzmiil-Qjtdvjcek-Hujpcl 100-62.5-25 MCG/INH AEROSOL POWDER, BREATH ACTIVATED, Inhale [...] st Contact Info) Description 09/25/2024 2:00 PM GRANULATING BLENDER Appointment [facility] [address] [facility] [place] [address] Zayra Powell, BEAUTY ARTIST [address] [place] [address] 10/16/2024 3:30 PM GRANULATING BLENDER Office Visit [facility] [address] [facility] [place] [address] Brit Gonzáles MD [address] [place] [address] documented as of this encounter Visit Diagnoses Diagnosis Other closed fracture of distal end of right fibula with routine healing, subsequent encounter- Primary Balance disorder Other symptoms involving nervous and musculoskeletal systems documented in this encounter Additional Health Concerns Assessment Noted Time PHQ-9 Depression Total Score: 0 12/02/19 22 1:18 PM CDT documented as of this encounter Care Teams Assembler Filters Relationship Specialty Start Date End Date Megan Infante MD [address] [facility] [place] [address] PCP - General FAMILY PRACTICE 04/06/16 Piyush Pandey MD [place] [employer] CARDIOVASCULAR DISEASE 04/06/16 12/28/23 Sharmila Davis APRN, PINEAPPLE PLANTATION MANAGER-C [address] [facility] [address] [place] [phone] NURSE PRACTITIONER 01/04/17 04/03/24 Linda Block MD [address] [facility] [address] [place] [phone] [place] [employer] CLINICAL CARDIAC ELECTROPHYSIOLOGY 02/08/17 04/12/23 Jeff Grace MD [address] [place] [address] Consulting Physician INTERNAL MEDICINE 02/20/19 3 Zaki Ortiz MD [address] [place] [address] Consulting Physician PULMONARY DISEASE 07/12/19 documented as of this encounter
--- OUTSIDE RECORDS SUMMARY | 2024-09-03 20:40 | XMS_ITS | Encounter Summary ---
Author Organization [facility] Address [address] [place] [address]. [place] [address] [place] [address] Care Team Providers Care Pet Sitting Name Role Phone Piyush Pandey MD Unavailable Unavailabl e Megan Infante MD Primary Care Provider [phone] Sharmila Davis APRN GLASSWARE FINISHER-C Unavailable Linda Block MD Unavailable [phone] Jeff Grace MD Unavailable Zaki Ortiz MD Unavailable [phone] Romeo-Concetta Pond MD Unavailable + [phone] Encounter Details Date Type Department Care Team (Late st Contact Info) Description 12/24/2022 2:35 PM CDT - 12/24/2022 11:59 PM CDT Hospital Encounter [facility] [facility] [address] [address] Katina Beltran MD [address] [place] [address] Discharge Disposition: Home or Self Care [...] 1 puff into the lungs daily. 12/23/2022 amlodipine 2.5 MG tablet Take 1 tablet (2.5 mg total) by mouth daily. 30 tablet 1 03/07/2019 3 aspirin 81 MG chewable tablet Chew 1 tablet (81 mg total) by mouth daily. 04/18/2014 4 camphor-menthol (SARNA) lotion Apply topically 2 (two) times a day. 3 folic acid 1 MG tablet Take [...] (two) times daily as needed. 03/28/2022 3 insulin detemir (LEVEMIR FLEXPEN) 100 UNIT/ML PEN Inject into the skin as needed (only uses inslin if he needs it he states). 3 losartan 50 MG tablet Take 1 [...] st Contact Info) Description 09/25/2024 2:00 PM INFORMATION SECURITY MANAGER Appointment [facility] [address] [place] [address] Zayra Powell, ELECTROLYSIST [address] [place] [address] 10/16/2024 3:30 PM INFORMATION SECURITY MANAGER Office Visit [facility] [address] [place] [address] [address] Brit Gonzáles MD [address] [place] [address] documented as of this encounter Procedures Procedure [...] <1(A) <1 % 12/25/2022 2:35 PM CDT [facility] Comment:NORMAL URINE SPECIMEN / Unknown 12/24/2022 3:10 PM CDT Katina Beltran MD URINE ORDERABLES Final Res ult [facility] [address] [place] [address], [place] [phone] * (ABNORMAL) ALBUMIN CREATININE URINE RANDOM (12/24/2022 3:10 PM CDT) ALBUMIN (U) 3.1 MG/DL 12/24/2022 3:43 PM CDT [facility] Comment:REFERENCE RANGE NOT ESTABLISHED CREATININE RANDOM (U) 81.6 MG/DL 12/24/2022 3:43 PM CDT [facility] Comment:REFERENCE RANGE NOT ESTABLISHED ALBUMIN/CREAT RATIO 38.0(H) <30 MG/G 12/24/2022 3:43 PM CDT [facility] Comment: NORMAL TO MILDLY INCREASED ALBUMINURIA: <30 MG/G MODERATELY INCREASED ALBUMINURIA: 30 TO 300 MG/G SEVERELY INCREASED ALBUMINURIA: >300 MG/G PER KDIGO URINE SPECIMEN / Unknown 12/24/2022 3:10 PM CDT us Katina Beltran MD URINE ORDERABLES Final Res ult [facility] [address] [place] [address], [place] [phone] * (ABNORMAL) PTH - INTACT (12/24/2022 3:05 PM CDT) PTH 129.7(H) 18.4 - 80.1 PG/ML 12/25/2022 5:39 PM CDT [facility] Comment: ASSAY PERFORMED BY CHEMILUMINESCENCE METHODOLOGY USING SIEMENS Keen HomeAUR XPT REAGENT. PATIENT RESULTS DETERMINED BY ASSAYS USING DIFFERENT MANUFACTURERS FOR METHODS MAY NOT BE COMPARABLE. 12/24/2022 3:05 PM CDT Katina Beltran MD LABORATORY Final Resu Performing Organization Address [facility] Co de Phone Number [facility] [address] [place] [address], [phone] * (ABNORMAL) VITAMIN D, 25 [place] (12/24/2022 3:05 PM CDT) [facility] VITAMIN D 25 HYDROXY TOTAL S/P/B 10.4(L) 20.0 - 50.0 NG/ML 12/25/2022 12:30 PM CDT [facility] Comment: <10 ng/mL (Severe deficiency) 10 TO 19 ng/mL (Mild to Moderate deficiency) 20 TO 50 ng/mL (Optimum levels) 51 TO 80 ng/mL (Increased risk of hypercalciuria) >80 ng/mL (Toxicity possible) 12/24/2022 3:05 PM CDT Katina Beltran MD LABORATORY Final [facility] Per[facility] Organization Address [facility] de Phone Number [facility] [address] [place] [address], [phone] * IMMUNOFIXATION (12/24/2022 3:05 PM CDT) [facility] IMMUNOFIXATION SERUM SEE PATHOLOGIST'S INTERPRETATION 12/28/2022 2:40 PM CDT [facility] IMMUNOFIX (SERUM) INTERPRETATION THIS SERUM IMMUNOTYPING WAS INTERPRETED BY 12/28/2022 3:41 PM CDT [facility] Comment: DR CONNER EDWARDS MD MONOCLONAL PROTEIN NOT IDENTIFIED 12/24/2022 3:05 PM CDT us Katina Beltran MD LABORATORY Final Resu lt Performing Organization Address City/[facility]/ZIP Co de Phone Number [facility] [address] [place] [address], [place] [phone] * HEPATITIS C ANTIBODY (12/24/2022 3:05 PM CDT) HEPATITIS C AB NON-REACTI VE NON-REACT ALEK 12/25/2022 6:28 PM CDT [facility] Comment: ANTIBODIES TO HCV NOT DETECTED. DOES NOT EXCLUDE THE POSSIBILITY OF EXPOSURE TO HCV. 12/24/2022 3:05 PM CDT Katina Beltran MD LABORATORY Final Resu lt Performing Organization Address [facility]/ZIP Co de Phone Number [facility] [address] [place] [address], [place] [phone] * HEPATITIS B SURFACE AG, EIA (12/24/2022 3:05 PM CDT) HEPATITIS B SURFACE AG NON-REACTI VE NON-REACTI VE 12/25/2022 6:28 PM CDT [facility] Comment:HBsAg NOT DETECTED. 12/24/2022 3:05 PM CDT Katina Beltran MD LABORATORY Final Resu lt Performing Organization Address [facility]/ZIP Co de Phone Number [facility] [address] [place] [address], [place] [phone] * ANTI-GBM (12/24/2022 3:05 PM CDT) ANTI-GBM <1.0 <1.0 AI 12/28/2022 8:20 AM CDT [facility] MAURA MARTIN Comment: ?Value ?? Interpretation ? <1.0 AI: No Antibody Detected ?>or=1.0 AI: Antibody Detected Test Performed by [employer], [employer], [address] [place] [address] Bill Blackmon M.D., Ph.D., Director of Laboratories , CLIA [id number] 12/24/2022 3:05 PM CDT Katina Beltran MD LABORATORY Final Resu lt Performing Organization Address [facility]/ZIP Co de Phone Number [address] [address] , [place] [phone] * COMPLEMENT C4 (12/24/2022 3:05 PM CDT) COMPLEMENT C4 35 15 - 53 mg/dL 12/30/2022 8:27 PM CDT [facility] HARMONCisivJOSE MARIO Comment: Test Performed by [employer], [employer], [address] [place] [address] Bill Blackmon M.D., Ph.D., Director of Laboratories , CLIA [id number] 12/24/2022 3:05 PM CDT Katina Beltran MD LABORATORY Final Resu lt Performing Organization Address [facility]/ZIP Co de Phone Number [address] [address] , [place] [phone] * COMPLEMENT C3 (12/24/2022 3:05 PM CDT) Pathologist [facility] COMPLEMENT C3 150 82 - 185 mg/dL 12/30/2022 8:27 PM CDT [facility] MAURA MARTIN Comment: Test Performed by Teagan Martinez [employer] [place], [address] [place], [place] Bill Blackmon M.D., Ph.D., Director of Laboratories , [facility] [id number] 12/24/2022 3:05 PM CDT us Katina Beltran MD LABORATORY Final Resu lt [facility] [place] [address] [place], [place] , [place] [phone] * ANCA VASCULITIS PANEL (12/24/2022 3:05 PM CDT) [facility] ANCA SCREEN Negative Negative 12/30/2022 10:38 PM CDT [facility] CASI LEMUS Comment: ANCA Screen includes evaluation [...] <1.0 <1.0 AI 2022 10:38 PM CDT [facility] LEMUS Comment: ?Value ?? Interpretation ? [...] AB <1.0 <1.0 AI 10:38 PM CDT [facility] LEMUS Comment: ? Value ?Interpretation ? <1.0 AI: No Antibody Detected ?>or=1.0 AI: Antibody Detected Autoantibodies to proteinase-3 (NE-3) are accepted as characteristic for granulomatosis with polyangiitis (GPA, Sherie's), and are detectable in 95% of the histologically proven cases. The cytoplasmic IFA pattern, (c-ANCA), is based largely on autoantibody to NE-3 which serves as the primary antigen. These autoantibodies are present in active disease. Test Performed by [facility] [employer] [place], [email or web address], [address] [place] [address] Bill Blackmon M.D., Ph.D., Director of Laboratories , [place] [id number] 12/24/2022 3:05 PM CDT us Katina Beltran MD LABORATORY Final Resu lt [facility] [id number] [place], [place] , * ANTINUCLEAR ANTIBODY WI RFX (12/24/2022 3:05 PM CDT) LIANNE 0.3 12/28/2022 1:46 PM CDT [facility] Comment: NEGATIVE: <0.7 RATIO LIANNE PROFILE AND TITER NOT PERFORMED THE LIANNE SCREEN TESTS FOR THE FOLLOWING ANTIBODIES BY EIA: SSA1 (RO), SSB1 (LA), ZAPATA, SCL70, JO1, CENTROMERE, INVESTMENT PROFESSIONAL HISTONE MUST BE ORDERED SEPARATELY DNA (DS) ANTIBODY 3.6 IU/ML 023 1:46 PM CDT [facility] Comment: NEGATIVE: <10 IU/mL EQUIVOCAL: 10 to 15 IU/mL POSITIVE: >15 IU/mL THIS QUANTITATIVE ASSAY IS CALIBRATED TO THE [employer]'S WO/80 STANDARD. THE LEVEL OF dsDNA AUTOANTIBODY GERERALLY CORRELATES WITH THE LEVEL OF DISEASE ACTIVITY IN SYSTEMIC LUPUS ERYTHMATOSUS 12/24/2022 3:05 PM CDT Katina Beltran MD LABORATORY Final Resu lt [facility] [address] [place] [address], [phone] * (ABNORMAL) RENAL FUNCTION PANEL (12/24/2022 3:05 PM CDT) SODIUM S/P/B 136 136 - 145 MMOL/L 12/24/2022 3:32 PM CDT [facility] POTASSIUM S/P/B 5.0 3.5 - 5.1 MMOL/L 12/24/2022 3:32 PM CDT [facility] CHLORIDE S/P/B 100 98 - 107 MMOL/L 12/24/2022 3:32 PM CDT [facility] CO2 26.7 21.0 - 32.0 MMOL/L 12/24/2022 3:32 PM CDT [facility] GLUCOSE 99 70 - 99 MG/DL 12/24/2022 3:32 PM CDT [facility] Comment: FASTING GLUCOSE 100 TO 125 MG/DL IS CONSISTENT WITH IMPAIRED FASTING GLUCOSE. FASTING GLUCOSE >125 MG/DL IS CONSISTENT WITH DIABETES. RANDOM GLUCOSE >200 MG/DL WITH HYPERGLYCEMIC SYMPTOMS IS CONSISTENT WITH DIABETES. PER ADA GUIDELINES BUN 38(H) 6 - 24 MG/DL 12/24/2022 3:32 PM CDT [facility] CREATININE S/P/B 2.35(H) 0.70 - 1.30 MG/DL 12/24/2022 3:32 PM CDT [facility] CALCIUM S/P/B 9.3 8.4 - 10.5 MG/DL 12/24/2022 3:32 PM CDT [facility] ALBUMIN S/P/B 3.1(L) 3.4 - 5.0 G/DL 12/24/2022 3:32 PM CDT [facility] PHOSPHORUS 3.9 2.6 - 4.7 MG/DL 12/24/2022 3:32 PM CDT [facility] ANION GAP 9.3 5.0 - 15.0 MMOL/L 12/24/2022 3:32 PM CDT [facility] OSMOLALITY (CALC) 291 MOSM/KG 023 3:32 PM T [facility] Comment:REFERENCE RANGE NOT ESTABLISHED GFR ESTIMATE 29(L) >89 ML/MIN/1. 73 M2 12/24/2022 3:32 PM CDT [facility] GFR NOTES GFR REFERENCE S: 12/24/2022 3:32 PM T [facility] Comment: THE ESTIMATED GFR IS [...] Katina Beltran MD LABORATORY Final Resu lt [facility] [address] [place] [address], * (ABNORMAL) CBC W/DIFF AUTOMATED (12/24/2022 3:05 PM CDT) WBC 7.17 4.00 - 10.80 x10'3/uL 12/24/2022 3:19 PM CDT [facility] RBC 3.74(L) 4.50 - 6.10 x10'6/uL 12/24/2022 3:19 PM CDT [facility] HGB 8.6(L) 13.0 - 18.0 G/DL 12/24/2022 3:19 PM CDT [facility] HCT 29.1(L) 37.0 - 52.0 % 12/24/2022 3:19 PM CDT [facility] MCV 77.8(L) 78.0 - 100.0 FL 12/24/2022 3:19 PM CDT [facility] MCH 23.0(L) 27.0 - 31.0 PG 12/24/2022 3:19 PM CDT [facility] MCHC 29.6(L) 33.0 - 36.0 G/DL 12/24/2022 3:19 PM CDT [facility] RDW 17.6(H) 11.5 - 14.5 % 12/24/2022 3:19 PM CDT [facility] PLT 168 150 - 350 x10'3/uL 12/24/2022 3:19 PM CDT [facility] MPV 9.6 7.4 - 10.4 FL 12/24/2022 3:19 PM CDT [facility] CBC COMMENT NORMAL REFERENCE RANGE NOT ESTABLISHED FOR THE PROPORTIONAL LEUKOCYTE DIFFERENTIAL. 12/24/2022 3:19 PM CDT [facility] NEUTROPHILS % 68.8 % 12/24/2022 3:19 PM CDT [facility] LYMPHOCYTES % 17.2 % 12/24/2022 3:19 PM CDT [facility] MONOCYTES % 9.9 % 12/24/2022 3:19 PM CDT [facility] EOSINOPHILS % 3.1 % 12/24/2022 3:19 PM CDT [facility] BASOPHILS % 0.7 % 12/24/2022 3:19 PM CDT [facility] IMMATURE GRANS % 0.3 % 12/25/19 3:19 PM CDT [facility] NRBC 0.0 % 12/24/2022 3:19 PM CDT [facility] ABS. NEUTROPHILS 4.94 1.60 - 8.30 x10'3/uL 12/24/2022 3:19 PM CDT [facility] ABS. LYMPHOCYTES 1.23 0.80 - 4.70 x10'3/uL 12/24/2022 3:19 PM CDT [facility] ABS. MONOCYTES 0.71 0.00 - 1.50 x10'3/uL 12/24/2022 3:19 PM CDT [facility] ABS. EOSINOPHILS 0.22 0.00 - 0.40 x10'3/uL 12/24/2022 3:19 PM CDT [facility] ABS. BASOPHILS 0.05 0.00 - 0.20 x10'3/uL 12/24/2022 3:19 PM CDT [facility] ABS. IMMATURE GRANULOCYTES 0.02 0.00 - 0.03 x10'3/uL 12/24/2022 3:19 PM CDT [facility] ABS. NUCLEATED RBC'S 0.00 0.00 x10'3/uL 12/24/2022 3:19 PM CDT [facility] 12/24/2022 3:05 PM CDT us Katina Beltran MD LABORATORY Final Resu lt [facility] [address] [place] [address], documented in this encounter Visit Diagnoses Diagnosis Decreased GFR Nonspecific abnormal results of kidney function study CKD (chronic kidney disease), stage III ([facility]) Chronic kidney disease, Stage III (moderate) documented in this encounter Additional Health Concerns Assessment Noted Time PHQ-9 Depression Total Score: 0 12/02/19 22 1:18 PM CDT documented as of this encounter Care Teams Pet Sitting Relationship Specialty Start Date End Date Megan Infante MD [address] [place] [address] PCP - General FAMILY PRACTICE 04/06/16 Piyush Pandey MD [place] [employer] CARDIOVASCULAR DISEASE 04/06/16 12/28/23 Sharmila Davis, BEAUTY SPECIALIST, GLASSWARE FINISHER-C [address] [phone] NURSE PRACTITIONER 01/04/17 04/03/24 Linda Block MD [address] [address] [place] [employer] CLINICAL CARDIAC ELECTROPHYSIOLOGY 02/08/17 04/12/23 Jeff Grace MD [address] [address] Consulting Physician INTERNAL MEDICINE 02/20/19 3 Zaki Ortiz MD [address] [address] Consulting Physician PULMONARY DISEASE 07/12/19 Concetta Acevedo MD [address] [place] [id number] Surgeon NEUROLOGICAL SURGERY 12/16/22 documented as of this encounter
--- OUTSIDE RECORDS SUMMARY | 2024-09-03 20:40 | XMS_ITS | Encounter Summary ---
Author Organization [facility] Address [facility]6 [facility] [place] [address] [place] [address] Care Team Providers Care Consultant In Ergonomics And Safety Name Role Phone Amauri Pandey MD Unavailable Unavailabl e Megan Infante MD Primary Care Provider [phone] Sharmila Davis APRN, GYNECOLOGY TEACHER-C Unavailable [phone] Linda Block MD Unavailable [phone] Jeff Grace MD Unavailable Zaki Ortiz MD Unavailable [phone] Concetta Acevedo MD Unavailable + [phone] Reason for Visit * Reason Comments Consult Preop evaluation brown or to cervical spine surgery Encounter Details Date Type Department Care Team (Late st Contact Info) Description 12/28/2022 10:30 AM CDT Office Visit [facility] [facility] [address] [place] [address] Sharmila Davis APRN, GYNECOLOGY TEACHER-C [address] [facility] [address] [place] [address] Consult (Preop evaluation prior to [...] 6:30 PM CDT Inag Moseley RN Active documented in this encounter [...] fusion by Dr. Pond on 01/01/23 at [facility]. He has a history of coronary artery [...] 1999, 2013 SOB (shortness of breath) Stroke ([facility]/HCC) Varicose veins of bilateral lower extremities with [...] failure (CMS/HCC) 3. Coronary artery disease involving shungnak coronary artery of shungnak heart without angina pectoris 4. S/P aortic valve replacement with bioprosthetic valve 5. Essential hypertension 6. Chronic atrial fibrillation (CMS/HCC) 7. Mixed hyperlipidemia Referring Provider: Concetta Waggoner* PCP: MEGAN INFANTE MD documented in this encounter Plan of Treatment Upcoming Encounters Date Type Department Care Team (Late st Contact Info) Description 09/25/2024 2:00 PM COLLAR STITCHER Appointment [facility] [address] [place] [address] Zayra Powell, COMMUNITY MARKETING MANAGER [address] [facility] [place] [address] 10/16/2024 3:30 PM COLLAR STITCHER Office Visit [facility] [address] [place] [address] Brit Gonzáles MD [address] [place], [place] [address] documented as of this encounter Procedures Procedure Name Priority Date/Time Associated Diagnosis Comments ELECTROCARDIOGRAM (NON MIDMARK ACQUIRED) Routine 12/28/2022 10:31 AM CDT Chronic atrial fibrillation (CMS/HCC HHS/HCC) Mixed hyperlipidemia Essential hypertension documented in this encounter Results * ELECTROCARDIOGRAM (12/28/2022 10:31 AM CDT) 12/28/2022 10:3 1 AM CDT Narrative [facility] - 12/28/2022 2:06 PM CDT ? [facility] ?[address] [place], [place] ??[address] ? Test Date: ?2022-12-28 Pat Name: ? OBIE BELLHAN ?Department: ?? 105 ? Room: ? Gender: ? Male ? Managing Director: ?? AAB : ?1955 ? Requested By: AMAURI PANDEY Order Number: [id number] ?Reading MD: ?? Amauri Pandey ? Measurements Intervals ?[place] ? Rate: ? 80 ? P: ? [place]: ? 0 ?QRS: ?-68 QRSD: ? 138 ?T: ?92 QT: ? 372 ? QTc: ?432 ? Interpretive Statements ATRIAL FIBRILLATION LEFT AXIS DEVIATION INTRAVENTRICULAR CONDUCTION DELAY Procedure Note Amauri Pandey MD - 12/28/2022 [facility], [facility] [address] [place] [address] Test Date: 2022-12-28 Pat Name: OBIE SIMS Department: 105 Room: Gender: Male Managing Director: GEETA : 1955 Requested By: AMAURI PANDEY Order Number: [id number] Reading MD: Amauri Pandey Measurements Intervals [place] Rate: 80 P: IL: 0 QRS: -68 QRSD: 138 T: 92 QT: 372 QTc: 432 Interpretive Statements ATRIAL FIBRILLATION LEFT AXIS DEVIATION INTRAVENTRICULAR CONDUCTION DELAY us Amauri Pandey MD PROCEDURES-ORDERABLE NO DEONTE RGE Final Result [facility] documented in this encounter Visit Diagnoses Diagnosis Preoperative cardiovascular examination- Primary Pre-operative cardiovascular examination Acute on chronic combined systolic and diastolic congestive heart failure (CMS/HCC HHS/HCC) Acute on chronic combined systolic and diastolic heart failure Coronary artery disease involving sh[place] coronary artery of [place] heart without angina pectoris S/P aortic valve replacement with bioprosthetic valve Heart valve replaced by other means Essential hypertension Unspecified essential hypertension Chronic atrial fibrillation ([facility]/HCC HHS/HCC) Atrial fibrillation Mixed hyperlipidemia documented in this encounter Additional Health Concerns Assessment Noted Time PHQ-9 Depression Total Score: 0 12/02/19 22 1:18 PM CDT documented as of this encounter Care Teams Consultant In Ergonomics And Safety Relationship Specialty Start Date End Date Megan Infante MD [address] [place] [address] [place] [address] PCP - General FAMILY PRACTICE 04/06/16 Amauri Pandey MD [place] Asbestos Siding Mechanic CARDIOVASCULAR DISEASE 04/06/16 12/28/23 Sharmila Davis, ROLLER LEVELER, GYNECOLOGY TEACHER-C [address] [facility] [address] [place] [address] NURSE PRACTITIONER 01/04/17 04/03/24 Linda Block MD [address] [phone] [place] Asbestos Siding Mechanic CLINICAL CARDIAC ELECTROPHYSIOLOGY 02/08/17 04/12/23 Jeff Grace MD [address] [phone] Consulting Physician INTERNAL MEDICINE 02/20/19 3 Zaik Ortiz MD [address] [phone] Consulting Physician PULMONARY DISEASE 07/12/19 Concetta Acevedo MD [address] [place] [id number] Surgeon NEUROLOGICAL SURGERY 12/16/22 documented as of this encounter
--- OUTSIDE RECORDS SUMMARY | 2024-09-03 20:40 | XMS_ITS | Encounter Summary ---
Author Organization [facility] Address [facility]6 [facility] [place] [address] [place] [address] Care Team Providers Care Cooperative Education Director Name Role Phone Piyush Pandey MD Unavailable Unavailabl e Megan Infante MD Primary Care Provider [phone] Sharmila Davis APRN ELECTRICAL EQUIPMENT ASSEMBLER-C Unavailable Linda Block MD Unavailable [phone] Jeff Grace MD Unavailable Zaki Ortiz MD Unavailable [phone] Romeo-Concetta Pond MD Unavailable + [phone] Reason for Visit * Reason Comments Outside Record (SCAN) Encounter Details Date Type Department Care Team (Late st Contact Info) Description 11/19/2022 Scan [facility] jorge [address] [place] [phone] Scanned, Doc Pccl Outside Record (SCAN) Social [...] st Contact Info) Description 09/25/2024 2:00 PM SHEET FED PRINTER Appointment [facility] [address] [place] [address] Zayra Powell, PAINTER AND BODY WORK [address] [place] [address] 10/16/2024 3:30 PM SHEET FED PRINTER Office Visit [facility] [address] [place] [address] Brit Gonzáles MD [address] [place], [place] [phone] documented as of this encounter Visit Diagnoses Not on filedocumented in this encounter Additional Health Concerns Infection Onset Date Last Indicated Resolved Time COVID-19 Rule Out 01/04/2023 01/04/2023 01/04/2023 10:12 AM CDT Assessment Noted Time PHQ-9 Depression Total Score: 0 12/02/19 22 1:18 PM CDT documented as of this encounter Care Teams Cooperative Education Director Relationship Specialty Start Date End Date Megan Infante MD [address] [facility] [place] [address] PCP - General FAMILY PRACTICE 04/06/16 Piyush Pandey MD [place] Maintenance Inspector CARDIOVASCULAR DISEASE 04/06/16 12/28/23 Sharmila Davis APRN, ELECTRICAL EQUIPMENT ASSEMBLER-C [address] [place] [address] NURSE PRACTITIONER 01/04/17 04/03/24 Linda Block MD [address] [place] [address] [place] Maintenance Inspector CLINICAL CARDIAC ELECTROPHYSIOLOGY 02/08/17 04/12/23 Jeff Grace MD [address] [place] [address] Consulting Physician INTERNAL MEDICINE 02/20/19 3 Zaki Ortiz MD [address] [place] [address] Consulting Physician PULMONARY DISEASE 07/12/19 Concetta Acevedo MD [address] [place] [address] Surgeon NEUROLOGICAL SURGERY 12/16/22 documented as of this encounter
--- OUTSIDE RECORDS SUMMARY | 2024-09-03 20:40 | XMS_ITS | Encounter Summary ---
Author Organization [facility] Address [address] [place] [address]. [place] [address] [place] [address] Care Team Providers Care Preschool Aide Name Role Phone Piyush Pandey MD Unavailable Unavailabl e Megan Infante MD Primary Care Provider [phone] Sharmila Davis APRN HAND FLESHER-C Unavailable [phone] Linda Block MD Unavailable [phone] Jeff Grace MD Unavailable Zaki Ortiz MD Unavailable [phone] Romeo-Concetta Pond MD Unavailable + [phone] Encounter Details Date Type Department Care Team [...] Contact Info) Description 09/25/2024 2:00 PM COMBINATION MACHINE TOOL SETTER Appointment [facility] [address] [place] [address] Zayra Powell, DRY CLEANER PRESSER [address] [place] [address] 10/16/2024 3:30 PM COMBINATION MACHINE TOOL SETTER Office Visit [facility] [address] [place] [phone] Brit Gonzáles MD [address] [place] [address] documented as of this encounter Visit Diagnoses Not on filedocumented in this encounter Additional Health Concerns Assessment Noted Time PHQ-9 Depression Total Score: 0 12/02/19 22 1:18 PM CDT documented as of this encounter Care Teams Preschool Aide Relationship Specialty Start Date End Date Megan Infante MD [address] [facility] [place] [address] PCP - General FAMILY PRACTICE 04/06/16 Piyush Pandey MD [place] [facility] Nurse Practitioner CARDIOVASCULAR DISEASE 04/06/16 12/28/23 Sharmila Davis APRN, HAND FLESHER-C [address] [phone] NURSE PRACTITIONER 01/04/17 04/03/24 Linda Block MD [address] [phone] [place] [facility] Nurse Practitioner CLINICAL CARDIAC ELECTROPHYSIOLOGY 02/08/17 04/12/23 Jeff Grace MD [address] [address] Consulting Physician INTERNAL MEDICINE 02/20/19 3 Zaki Ortiz MD [address] [phone] Consulting Physician PULMONARY DISEASE 07/12/19 Concetta Acevedo MD [address] [place] [address] Surgeon NEUROLOGICAL SURGERY 12/16/22 documented as of this encounter
--- OUTSIDE RECORDS SUMMARY | 2024-09-03 20:40 | XMS_ITS | Encounter Summary ---
Author Organization [facility] Address [facility]6 [facility] [place] [address] [place] [address] Care Team Providers Care Dice Manager Name Role Phone Piyush Pandey MD Unavailable Unavailabl e Megan Infante MD Primary Care Provider [phone] Sharmila Davis APRN, NP-C Unavailable [phone] Linda Block MD Unavailable [phone] Jeff Grace MD Unavailable Zaki Ortiz MD Unavailable [phone] Romeo-Concetta Pond MD Unavailable + [phone] Encounter Details Date Type Department Care Team [...] st Contact Info) Description 09/25/2024 2:00 PM CORRECTIONAL THERAPY TEACHER Appointment [facility] [address] [place] [address] Zayra Powell, EXTERIOR DESIGNER [address] [place] [address] 10/16/2024 3:30 PM CORRECTIONAL THERAPY TEACHER Office Visit [facility] [address] [place] [address] Brit Gonzáles MD [address] [place], [place] [address] documented as of this encounter Visit Diagnoses Not on filedocumented in this encounter Additional Health Concerns Assessment Noted Time PHQ-9 Depression Total Score: 0 12/02/19 22 1:18 PM CDT documented as of this encounter Care Teams Dice Manager Relationship Specialty Start Date End Date Megan Infante MD [address] [place] [address] PCP - General FAMILY PRACTICE 04/06/16 Piyush Pandey MD [place] Colorist CARDIOVASCULAR DISEASE 04/06/16 12/28/23 Sharmila Davis, DANNY, ABORIGINAL CEREMONIAL CELEBRANT-C 619 [facility] [address] [place] [address] NURSE PRACTITIONER 01/04/17 04/03/24 Linda Block MD [address] [facility] [address] [place] [address] Hunt Colorist CLINICAL CARDIAC ELECTROPHYSIOLOGY 02/08/17 04/12/23 Jeff Grace MD 619 [facility] [address] [place] [phone] Consulting Physician INTERNAL MEDICINE 02/20/19 3 Zaki Ortiz MD [address] [facility] [address] [place] [address] Consulting Physician PULMONARY DISEASE 07/12/19 Concetta Acevedo MD [address] [place] [address] Surgeon NEUROLOGICAL SURGERY 12/16/22 documented as of this encounter
--- OUTSIDE RECORDS SUMMARY | 2024-09-03 20:40 | XMS_ITS | Encounter Summary ---
Author Organization [facility] Address [facility] [facility] [place] [address] [place] [address] Care Team Providers Care Academic Computing Director Name Role Phone Piyush Pandey MD Unavailable Unavailabl e Megan Infante MD Primary Care Provider [phone] Sharmila Davis APRN SURGICAL BRACE MAKER-C Unavailable Linda Block MD Unavailable [phone] Jeff Grace MD Unavailable Zaki Ortiz MD Unavailable [phone] Romeo-Concetta Pond MD Unavailable + [phone] Reason for Visit * Reason Comments Outside Record (SCAN) Encounter Details Date Type Department Care Team (Late st Contact Info) Description 10/14/2022 Scan [facility] jorge [address] [place] [phone] Scanned, Doc Pccl Outside Record (SCAN) Social [...] st Contact Info) Description 09/25/2024 2:00 PM LARRY CAR OPERATOR Appointment [facility] [address] [place] [address] Zayra Powell, GOLD LAYER [address] [place] [address] 10/16/2024 3:30 PM LARRY CAR OPERATOR Office Visit [facility] [address] [place] [address] Brit Gonzáles MD [address] [place], [place] [phone] documented as of this encounter Visit Diagnoses Not on filedocumented in this encounter Additional Health Concerns Infection Onset Date Last Indicated Resolved Time COVID-19 Rule Out 01/04/2023 01/04/2023 01/04/2023 10:12 AM CDT Assessment Noted Time PHQ-9 Depression Total Score: 0 12/02/19 22 1:18 PM CDT documented as of this encounter Care Teams Academic Computing Director Relationship Specialty Start Date End Date Megan Infante MD [address] [facility] [place] [address] PCP - General FAMILY PRACTICE 04/06/16 Piyush Pandey MD [place] Straddle Carrier Operator CARDIOVASCULAR DISEASE 04/06/16 12/28/23 Sharmila Davis APRN, SURGICAL BRACE MAKER-C [address] [place] [address] NURSE PRACTITIONER 01/04/17 04/03/24 Linda Block MD [address] [place] [address] [place] Straddle Carrier Operator CLINICAL CARDIAC ELECTROPHYSIOLOGY 02/08/17 04/12/23 Jeff Grace MD [address] [place] [address] Consulting Physician INTERNAL MEDICINE 02/20/19 3 Zaki Ortzi MD [address] [place] [address] Consulting Physician PULMONARY DISEASE 07/12/19 Concetta Acevedo MD [address] [place] [address] Surgeon NEUROLOGICAL SURGERY 12/16/22 documented as of this encounter
--- OUTSIDE RECORDS SUMMARY | 2024-09-03 20:40 | XMS_ITS | Encounter Summary ---
Author Organization [facility] Address [address] [place] [address]. [place] [address] [place] [address] Care Team Providers Care Probation And Patrol Agent Name Role Phone Piyush Pandey MD Unavailable Unavailabl e Megan Infante MD Primary Care Provider [phone] Sharmila Davis APRN TRAFFIC SUPERVISOR-C Unavailable [phone] Linda Block MD Unavailable [phone] Jeff Grace MD Unavailable Zaki Ortiz MD Unavailable [phone] Encounter Details Date Type Department Care Team [...] st Contact Info) Description 09/25/2024 2:00 PM SHREDDING MACHINE OPERATOR Appointment [facility] [address] [place] [address] Zayra Powell, [facility] [address] [place] [address] 10/16/2024 3:30 PM SHREDDING MACHINE OPERATOR Office Visit [facility] [address] [place] [address] Brit Gonzáles MD [address]19 [place] [address] documented as of this encounter Visit Diagnoses Not on filedocumented in this encounter Additional Health Concerns Assessment Noted Time PHQ-9 Depression Total Score: 0 12/02/19 22 1:18 PM CDT documented as of this encounter Care Teams Probation And Patrol Agent Relationship Specialty Start Date End Date Megan Infante MD [address] [facility] [place] [address] PCP - General FAMILY PRACTICE 04/06/16 Piyush Pandey MD [place] Director Of Physical Education CARDIOVASCULAR DISEASE 04/06/16 12/28/23 Sharmila Davis, TACKING STITCH REMOVER, TRAFFIC SUPERVISOR-C [address] [facility] [address] [place] [phone] NURSE PRACTITIONER 01/04/17 04/03/24 Linda Block MD [address] [phone] [place] Director Of Physical Education CLINICAL CARDIAC ELECTROPHYSIOLOGY 02/08/17 04/12/23 Jeff Grace MD [address] [address] Consulting Physician INTERNAL MEDICINE 02/20/19 3 Zaki Ortiz MD [address] [address] Consulting Physician PULMONARY DISEASE 07/12/19 documented as of this encounter
--- OUTSIDE RECORDS SUMMARY | 2024-09-03 20:40 | XMS_ITS | Encounter Summary ---
Author Organization [facility] Address [facility] access hospital6 [facility] [place] [address] [place] [address] Care Team Providers Care Landscape Manager Name Role Phone Piyush Pandey MD Unavailable Unavailabl e Megan Infante MD Primary Care Provider [phone] Sharmila Davis APRN, ENGINEER EXHAUSTER-C Unavailable [phone] Linda Block MD Unavailable [phone] Jeff Grace MD Unavailable Zaki Ortiz MD Unavailable [phone] Reason for Visit * Imaging (Routine) - Closed Specialty Diagnoses / Procedures Referred By Yung sequeira Referred To Contact RADIOLOGY Diagnoses S/P aortic valve replacement with bioprosthetic valve Procedures USE ECHOCARDIOGRAM W CON USE ECHOCARDIOGRAM Sharmila Davis APRN, ENGINEER EXHAUSTER-C [address] [place] [address] Phone: tel: fax: Referral ID Status Reason Start Date Expiration Date Visits Re quested Visits Authorized [id number] Closed 12/15/2021 01/15/2023 1 1 Encounter Details Date Type Department Care Team (Latest Contact Info) Description 04/15/2022 9:11 AM CDT - 04/15/2022 11:59 PM CDT Hospital Encounter [facility] [address] [place] [address] Sharmila Davis APRN, ENGINEER EXHAUSTER-C [address] [place] [address] Discharge Disposition: Home or Self Care (Routine [...] total) by mouth nightly at bedtime. 12/31/2016 docusate sodium 100 MG capsule Take 1 capsule (100 mg total) by mouth as needed for Constipation. pantoprazole EC 40 MG tablet Take 1 tablet (40 mg total) by mouth daily. sertraline 50 MG tablet Take 1 tablet (50 mg total) by mouth daily. 10/03/2021 traZODone (DESYREL) 150 MG tablet Take 2 tablets (300 mg total) by mouth nightly at bedtime. 03/24/2022 amlodipine 2.5 MG tablet Take 1 tablet (2.5 mg total) by mouth daily. 30 tablet 1 03/07/2019 3 aspirin 81 MG chewable tablet Chew 1 tablet (81 mg total) by mouth daily. 04/18/2014 4 carvedilol 6.25 MG tablet Take 12.5 mg by mouth 2 (two) times a day. 10/13/2021 3 clonazePAM 1 MG tabletIndications :Elevated brain natriuretic peptide (BNP) level Take 1 tablet (1 mg total) by mouth nightly as needed. 20 tablet 02/06/2022 3 Fluticasone-Umecl idin-Vilant 100-62.5-25 MCG/INH AEROSOL POWDER, BREATH [...] cream Apply topically as needed. 01/31/2020 3 rOPINIRole 2 MG tablet Take 4 mg by mouth nightly. 11/20/2021 3 warfarin 10 MG tablet Take 5 mg by mouth in the morning. As directed 10/21/2021 3 documented as of this encounter Plan of Treatment Upcoming Encounters Date Type Department Care Team (Late st Contact Info) Description 09/25/2024 2:00 PM OVERSIZE LOAD PILOT ESCORT Appointment [facility] [place] [address] Zayra Powell, FOOT ORTHOPEDIST [address] [place] [address] 10/16/2024 3:30 PM OVERSIZE LOAD PILOT ESCORT Office Visit [facility] [address] [place] [address] Brit Gonzáles MD [address] [place] [address] documented as of this encounter Procedures Procedure Name Priority Date/Time Associated Diagnosis Comments USE ECHOCARDIOGRAM W CON Routine 04/15/2022 10:16 AM CDT S/P aortic valve replacement with bioprosthetic valve documented in this encounter Results * USE ECHOCARDIOGRAM W CON (04/15/2022 10:16 AM CDT) Anatomical Region Laterality Modality NA Ultrasound Sharmila B Ryan TUNG NUT GROWER, ENGINEER EXHAUSTER-C ECHO Final Result documented in this encounter [...] documented as of this encounter Care Teams Landscape Manager Relationship Specialty Start Date End Date Megan Infante MD [address] [facility] [place] [address] PCP - General FAMILY PRACTICE 04/06/16 Piyush Pandey MD [place] Harvesting Manager CARDIOVASCULAR DISEASE 04/06/16 12/28/23 Sharmila Davis APRN, ENGINEER EXHAUSTER-C [address] [place] [address] NURSE PRACTITIONER 01/04/17 04/03/24 Linda Block MD [address] [facility] [address] [place] [address] [place] Harvesting Manager CLINICAL CARDIAC ELECTROPHYSIOLOGY 02/08/17 04/12/23 Jeff Grace MD [address]19 [facility] [address] [place] [address] Consulting Physician INTERNAL MEDICINE 02/20/19 3 Zaki Ortiz MD [address] [place] [address] Consulting Physician PULMONARY DISEASE 07/12/19 documented as of this encounter
--- OUTSIDE RECORDS SUMMARY | 2024-09-03 20:40 | XMS_ITS | Encounter Summary ---
Author Organization [facility] Address [address] [place] [address]. [place] [address] [place] [address] Care Team Providers Care At Home Independent Call Center Agent Name Role Phone Piyush Pandey MD Unavailable Unavailabl e Megan Infante MD Primary Care Provider [phone] Sharmila Davis APRN PIPE COVERER-C Unavailable [phone] Linda Block MD Unavailable [phone] Jeff Grace MD Unavailable Zaki Ortiz MD Unavailable [phone] Reason for Visit * Reason Comments Therapy Report (SCAN) Encounter Details Date Type Department Care Team ([facility] Contact Info) Description 03/19/2022 Scan [facility] Information Services Critical access hospital[facility] [place] [address] Scanned, Documents Therapy Report (SCAN) Social History [...] st Contact Info) Description 09/25/2024 2:00 PM RIB SAWYER Appointment [facility] [address] [place] [address] Zayra Powell, AUTOMOTIVE PARTS COUNTER PERSON [address] [place] [address] 10/16/2024 3:30 PM RIB SAWYER Office Visit [facility] [address] [place] [address] Brit Gonzáles MD 9 [place] [address] documented as of this encounter Visit Diagnoses Not on filedocumented in this encounter Additional Health Concerns Assessment Noted Time PHQ-9 Depression Total Score: 0 12/02/19 22 1:18 PM CDT documented as of this encounter Care Teams At Home Independent Call Center Agent Relationship Specialty Start Date End Date Megan Infante MD [address] [facility] [place] [address] PCP - General FAMILY PRACTICE 04/06/16 Piyush Pandey MD Jay Final Inspector And Tester CARDIOVASCULAR DISEASE 04/06/16 12/28/23 Sharmila Davis APRN, PIPE COVERER-C [address] [phone] NURSE PRACTITIONER 01/04/17 04/03/24 Linda Block MD [address] [phone] Jay Final Inspector And Tester CLINICAL CARDIAC ELECTROPHYSIOLOGY 02/08/17 04/12/23 Jeff Grace MD [address] [phone] Consulting Physician INTERNAL MEDICINE 02/20/19 3 Zaki Ortiz MD [address] [phone] Consulting Physician PULMONARY DISEASE 07/12/19 documented as of this encounter
--- OUTSIDE RECORDS SUMMARY | 2024-09-03 20:40 | XMS_ITS | Encounter Summary ---
Author Organization [facility] Address [address] [place] [address]. [place] [address] [place] [address] Care Team Providers Care Client Care Representative Name Role Phone Piyush Pandey MD Unavailable Unavailabl e Megan Infante MD Primary Care Provider [phone] Sharmila Davis APRN WATER SERVICE SUPERVISOR-C Unavailable [phone] Linda Block MD Unavailable [phone] Jeff Grace MD Unavailable Zaki Ortiz MD Unavailable [phone] Reason for Visit * Reason Comments Fracture CLOSED FRACTURE OF D ISTAL RIGHT FIBULA (DOI: 12/28/2021 Encounter Details Date Type Department Care Team (Latest Contact Info) Description 02/26/2022 2:30 PM CDT Office Visit [facility] [address] [address] Jacinto Vega MD [address] [place], [place] [id number] Fracture (CLOSED FRACTURE OF DISTAL RIGHT FIBULA [...] II (CMS/HCC) ??? Coronary artery disease involving [place] coronary artery of [place] heart without angina pectoris ??? COPD (chronic [...] COLONOSCOPY WITH COLD SNARE POLYPECTOMY performed by Klio Navarro MD at [facility] OR [...] needed for Constipation., Disp: , Rfl: ??? Nymddoaqnkd-Jeftprjeg-Zzlobi 100-62.5-25 MCG/INH AEROSOL POWDER, BREATH ACTIVATED, Inhale [...] symptoms worsen or fail to improve. JACINTO VEGA MD documented in this encounter Plan of Treatment Upcoming Encounters Date Type Department Care Team (Late st Contact Info) Description 09/25/2024 2:00 PM SUB MASTER Appointment [facility] [address] [place] [address] Zayra Powell, [facility] [address] [place] [address] 10/16/2024 3:30 PM SUB MASTER Office Visit [facility] [address] [place] [address] Brit Gonzáles MD 9 [place] [address] documented as of this encounter Visit Diagnoses Diagnosis Other closed fracture of distal end of right fibula with routine healing, subsequent encounter- Primary Fall, subsequent encounter Balance disorder Other symptoms involving nervous and musculoskeletal systems documented in this encounter Additional Health Concerns Assessment Noted Time PHQ-9 Depression Total Score: 0 12/02/19 22 1:18 PM CDT documented as of this encounter Care Teams Client Care Representative Relationship Specialty Start Date End Date Megan Infante MD [address] [address] PCP - General FAMILY PRACTICE 04/06/16 Piyush Pandey MD Axis Equipment Coordinator CARDIOVASCULAR DISEASE 04/06/16 12/28/23 Sharmila Davis, DIRECTOR OF INTEGRATED MARKETING, WATER SERVICE SUPERVISOR-C [address] [place] [id number] [place] [phone] NURSE PRACTITIONER 01/04/17 04/03/24 Linda Block MD [address] [phone] Axis Equipment Coordinator CLINICAL CARDIAC ELECTROPHYSIOLOGY 02/08/17 04/12/23 Jeff Grace MD [address] [address] Consulting Physician INTERNAL MEDICINE 02/20/19 3 Zaki Ortiz MD [address] [phone] Consulting Physician PULMONARY DISEASE 07/12/19 documented as of this encounter
--- OUTSIDE RECORDS SUMMARY | 2024-09-03 20:40 | XMS_ITS | Encounter Summary ---
Author Organization [facility] Address [facility] [place] [address] [place] [address] Care Team Providers Care Metaphysicist Name Role Phone Piyush Pandey MD Unavailable Unavailabl e Megan Infante MD Primary Care Provider [phone] Sharmila Davis APRN AUTOMATION DRIVER-C Unavailable Linda Block MD Unavailable [phone] Jeff Grace MD Unavailable Zaki Ortiz MD Unavailable [phone] [place]o-Concetta Pond MD Unavailable + [phone] Reason for Visit * Reason Comments Outside Record (SCAN) Encounter Details Date Type Department Care Team (Late st Contact Info) Description 12/11/2022 Scan [facility] jorge [address] [place] [phone] Scanned, Doc Pccl Outside Record (SCAN) Social [...] st Contact Info) Description 09/25/2024 2:00 PM OIL GAUGER Appointment [facility] [address] [place] [address] Zayra Powell, SALES REPRESENTATIVE PRINTING [address] [place] [address] 10/16/2024 3:30 PM OIL GAUGER Office Visit [facility] [address] [place] [address] Brit Gonzáles MD [address] [place], [place] [phone] documented as of this encounter Visit Diagnoses Not on filedocumented in this encounter Additional Health Concerns Infection Onset Date Last Indicated Resolved Time COVID-19 Rule Out 01/04/2023 01/04/2023 01/04/2023 10:12 AM CDT Assessment Noted Time PHQ-9 Depression Total Score: 0 12/02/19 22 1:18 PM CDT documented as of this encounter Care Teams Metaphysicist Relationship Specialty Start Date End Date Megan Infante MD [address] [facility] [place] [address] PCP - General FAMILY PRACTICE 04/06/16 Piyush Pandey MD [place] [employer] CARDIOVASCULAR DISEASE 04/06/16 12/28/23 Sharmila Davis APRN, AUTOMATION DRIVER-C [address] [place] [phone] NURSE PRACTITIONER 01/04/17 04/03/24 Linda Block MD [address] [place] [phone] [place] [employer] CLINICAL CARDIAC ELECTROPHYSIOLOGY 02/08/17 04/12/23 Jeff Grace MD [address] [place] [phone] Consulting Physician INTERNAL MEDICINE 02/20/19 3 Zaki Ortiz MD [address] [place] [address] Consulting Physician PULMONARY DISEASE 07/12/19 Concetta Acevedo MD [address] [place] [address] Surgeon NEUROLOGICAL SURGERY 12/16/22 documented as of this encounter
--- OUTSIDE RECORDS SUMMARY | 2024-09-03 20:40 | XMS_ITS | Encounter Summary ---
Author Organization [facility] Address [address] [place] [address]. [place] [address] [place] [address] Care Team Providers Care Cement Gun Operator Name Role Phone Piyush Pandey MD Unavailable Unavailabl e Megan Infante MD Primary Care Provider [phone] Sharmila Davis APRN LICENSED ARCHITECT-C Unavailable Linda Block MD Unavailable [phone] Jeff Grace MD Unavailable Zaki Ortiz MD Unavailable [phone] Reason for Visit * Reason Onset Date Comments Reschedule 05/25/2022 Called To Cancel Office Appt. 05/25/2022 Encounter Details Date Type Department Care Team (Late st Contact Info) Description 05/25/2022 Telephone [facility] ield [address] [place] [address] Jeff Grace MD [address] [place], [place] [phone] Reschedule; Called To Cancel Office Appt. Social [...] Terri Varghese - 07/24/2022 3:[address] [facility] VOICE MAIL DATE/TIME:07/24/2022 at 1403 CALLER: pt #: [phone] PROVIDER/NEW PT: Dr. Grace REASON FOR CALL: I need to cancel my appointment. I have a lot of problems right now and will call you back REQUEST HANDLED AND HOW: cancelled appointment and sent message to nurse C LIBRARIAN * Dianelys Elias - 05/25/2022 10:29 AM [...] Rescheduled for 07/28/22 at 9:45 AM in [place]. documented in this encounter Plan of Treatment Upcoming Encounters Date Type Department Care Team (Late st Contact Info) Description 09/25/2024 2:00 PM MUSIC LIBRARIAN Appointment [facility] [address] [place] [address] Zayra Powell, SUCCESSFACTORS CONSULTANT [address] [place] [address] 10/16/2024 3:30 PM MUSIC LIBRARIAN Office Visit [facility] [address] [place] [phone] Brit Gonzáles MD [address] [place] [address] documented as of this encounter Visit Diagnoses Not on filedocumented in this encounter Additional Health Concerns Assessment Noted Time PHQ-9 Depression Total Score: 0 12/02/19 22 1:18 PM CDT documented as of this encounter Care Teams Cement Gun Operator Relationship Specialty Start Date End Date Megan Infante MD [address] [place] [address] PCP - General FAMILY PRACTICE 04/06/16 Piyush Pandey MD [employer] Rep CARDIOVASCULAR DISEASE 04/06/16 12/28/23 Sharmila Davis, INTERNATIONAL TRADE COMPLIANCE MANAGER, LICENSED ARCHITECT-C [address] [place] [address] [address] [place] [phone] NURSE PRACTITIONER 01/04/17 04/03/24 Linda Block MD [address] [place] [address] [employer] Rep CLINICAL CARDIAC ELECTROPHYSIOLOGY 02/08/17 04/12/23 Jeff Grace MD [address] [facility] [facility] [address] [place] [address] Consulting Physician INTERNAL MEDICINE 02/20/19 3 Zaki Ortiz MD [address] [facility] [address] [place] [address] Consulting Physician PULMONARY DISEASE 07/12/19 documented as of this encounter
--- OUTSIDE RECORDS SUMMARY | 2024-09-03 20:40 | XMS_ITS | Encounter Summary ---
Author Organization [facility] Address [address] [place] [address]. [place] [address] [place] [address] Care Team Providers Care Acetylene Gas Compressor Name Role Phone Piyush Pandey MD Unavailable Unavailabl e Megan Infante MD Primary Care Provider [phone] Sharmila Davis APRN GRAPHIC COORDINATOR-C Unavailable [phone] Linda Block MD Unavailable [phone] Jeff Grace MD Unavailable Zaki Ortiz MD Unavailable [phone] Encounter Details Date Type Department Care Team [...] Contact Info) Description 09/25/2024 2:00 PM DYE LAB TECHNICIAN Appointment [facility] [address] [place] [address] Zayra Powell, PANEL CUTTER [address] [place] [address] 10/16/2024 3:30 PM DYE LAB TECHNICIAN Office Visit [facility] [address] [place] [address] Brit Gonzáles MD [address] [place] [address] documented as of this encounter Visit Diagnoses Not on filedocumented in this encounter Additional Health Concerns Assessment Noted Time PHQ-9 Depression Total Score: 0 12/02/19 22 1:18 PM CDT documented as of this encounter Care Teams Acetylene Gas Compressor Relationship Specialty Start Date End Date Megan Infante MD [address] [facility] [place] [address] PCP - General FAMILY PRACTICE 04/06/16 Piyush Pandey MD [employer] Sales Representative CARDIOVASCULAR DISEASE 04/06/16 12/28/23 Sharmila Davis, MICROBIAL SPECIALIST, GRAPHIC COORDINATOR-C [address] [facility] [address] [place] [phone] NURSE PRACTITIONER 01/04/17 04/03/24 Linda Block MD [address] [phone] [employer] Sales Representative CLINICAL CARDIAC ELECTROPHYSIOLOGY 02/08/17 04/12/23 Jeff Grace MD [address] [address] Consulting Physician INTERNAL MEDICINE 02/20/19 3 Zaki Ortiz MD [address] [address] Consulting Physician PULMONARY DISEASE 07/12/19 documented as of this encounter
--- OUTSIDE RECORDS SUMMARY | 2024-09-03 20:40 | XMS_ITS | Encounter Summary ---
Author Organization [facility] Address [facility] [place] [address] [place] [address] Care Team Providers Care Pump Servicer Helper Name Role Phone Piyush Pandey MD Unavailable Unavailabl e Megan Infante MD Primary Care Provider [phone] Sharmila Davis APRN MAIL MACHINE OPERATOR-C Unavailable Linda Block MD Unavailable [phone] Jeff Grace MD Unavailable Zaki Ortiz MD Unavailable [phone] Encounter Details Date Type Department Care Team (Late st Contact Info) Description 02/26/2022 Orders Only [facility] [address] [place] [address], [facility] 1 [place] [address] Jacinto Vega MD [address] [place] [address] Social History Tobacco Use Types Packs/Day Years [...] Contact Info) Description 09/25/2024 2:00 PM MID LEVEL JAVA DEVELOPER Appointment [facility] [address] [place] [address] Zayra Powell, EMERGENCY PLANNING AND RESPONSE MANAGER [address] [place] [address] 10/16/2024 3:30 PM MID LEVEL JAVA DEVELOPER Office Visit [facility] [address] [place] [address] Brit Gonzáles MD [address] [place] [address] documented as of this encounter Results [...] as of this encounter Care Teams Pump Servicer Helper Relationship Specialty Start Date End Date Megan Infante MD [address] [facility] [place] [address] PCP - General FAMILY PRACTICE 04/06/16 Piyush Pandey MD [place] Edger Hand CARDIOVASCULAR DISEASE 04/06/16 12/28/23 Sharmila Davis, CREATIVE DIRECTOR, MAIL MACHINE OPERATOR-C [address] [facility] [address] [place] [address] NURSE PRACTITIONER 01/04/17 04/03/24 Linda Block MD [address] [facility] [address] [place] [address] [place] [employer] Hand CLINICAL CARDIAC ELECTROPHYSIOLOGY 02/08/17 04/12/23 Jeff Grace MD [address] [facility] [address] [place] [address] Consulting Physician INTERNAL MEDICINE 02/20/19 3 Zaki Ortiz MD [address] [facility] [address] [place] [address] Consulting Physician PULMONARY DISEASE 07/12/19 documented as of this encounter
--- OUTSIDE RECORDS SUMMARY | 2024-09-03 20:40 | XMS_ITS | Encounter Summary ---
Author Organization [facility] Address [address] [place] [address]. [place] [address] [place] [address] Care Team Providers Care Heavy Equipment Plumbing Supervisor Name Role Phone Piyush Pandey MD Unavailable Unavailabl e Megan Infante MD Primary Care Provider [phone] Sharmila Davis APRN TAPE MACHINE TAILER-C Unavailable Linda Block MD Unavailable [phone] Jeff Grace MD Unavailable Zaki Ortiz MD Unavailable [phone] Reason for Visit * Reason Onset Date Comments Appointment Reminder 09/03/2022 Encounter Details Date Type Department Care Team (Late st Contact Info) Description 09/03/2022 Telephone [facility] eld [address] [place] [phone] Piyush Pandey MD Appointment Reminder Social History [...] - 09/03/2022 12:53 PM CST Due to [facility] scheduling restrictions f/u appointment changed from 10/29/22 to 11/09/22 at 11 am Phoned patient, agrees to new date/time CULATOR OPERATOR documented in this encounter Plan of Treatment Upcoming Encounters Date Type Department Care Team (Late st Contact Info) Description 09/25/2024 2:00 PM FLOCCULATOR OPERATOR Appointment [facility] [address] [place] [address] Zayra Powell, [facility] [address] [place] [address] 10/16/2024 3:30 PM FLOCCULATOR OPERATOR Office Visit [facility] [address] [address] Brit Gonzáles MD [address] [place] [address] documented as of this encounter Visit Diagnoses Not on filedocumented in this encounter Additional Health Concerns Assessment Noted Time PHQ-9 Depression Total Score: 0 12/02/19 22 1:18 PM CDT documented as of this encounter Care Teams Heavy Equipment Plumbing Supervisor Relationship Specialty Start Date End Date Megan Infante MD [address] [place] [address] PCP - General FAMILY PRACTICE 04/06/16 Piyush Pandey MD [place] Yield Clerk CARDIOVASCULAR DISEASE 04/06/16 12/28/23 Sharmila Davis APRN, TAPE MACHINE TAILER-C [address] [place] [phone] NURSE PRACTITIONER 01/04/17 04/03/24 Linda Block MD [address] [phone] [place] Yield Clerk CLINICAL CARDIAC ELECTROPHYSIOLOGY 02/08/17 04/12/23 Jeff Grace MD [address] [phone] Consulting Physician INTERNAL MEDICINE 02/20/19 3 Zaki Ortiz MD [address] [phone] Consulting Physician PULMONARY DISEASE 07/12/19 documented as of this encounter
--- OUTSIDE RECORDS SUMMARY | 2024-09-03 20:40 | XMS_ITS | Encounter Summary ---
Author Organization [facility] Address [address] [place] [address]. [place] [address] [place] [address] Care Team Providers Care Airframe Technician Name Role Phone Piyush Pandey MD Unavailable Unavailabl e Megan Infante MD Primary Care Provider [phone] Sharmila Davis APRN FILLER SHAKER-C Unavailable Linda Block MD Unavailable [phone] Jeff Grace MD Unavailable Zaki Ortiz MD Unavailable [phone] Reason for Visit * Reason Onset Date Comments Appointment Request 12/14/2022 Encounter Details Date Type Department Care Team (Late st Contact Info) Description 12/14/2022 Telephone [facility] ld [address] [place] [address] Piyush Pandey MD Appointment Request [...] is calling: Dr. Infante office Phone number: [phone] Message: the office is calling to get pt a sooner appt that 02/08/23 How handled called the office the pt has gained about 15 lbs in less than 2 months pt has lost 5-10lbs from having Furosamide. Pt is having neck surgery on 01/01/23 and will also need a pre op appt.Called the pt to schedule an appt with Sharmila in [place]. Pt will come to [place] to see Sharmila on 12/28/22 @ 10:30. Reminder letter has been sent to pt. documented in this encounter Plan of Treatment Upcoming Encounters Date Type Department Care Team (Late st Contact Info) Description 09/25/2024 2:00 PM APPRENTICE CARPENTER Appointment [facility] [address] [place] [address] Zayra Powell, SHOP FOREMAN [address] [place], [place] [phone] 10/16/2024 3:30 PM APPRENTICE CARPENTER Office Visit [facility] [address] [place] [address] Brit Gonzáles MD [address] [place] [address] documented as of this encounter Visit Diagnoses Not on filedocumented in this encounter Additional Health Concerns Assessment Noted Time PHQ-9 Depression Total Score: 0 12/02/19 22 1:18 PM CDT documented as of this encounter Care Teams Airframe Technician Relationship Specialty Start Date End Date Megan Infante MD [address] [place] [address] PCP - General FAMILY PRACTICE 04/06/16 Piyush Pandey MD [place] Information Resources Manager CARDIOVASCULAR DISEASE 04/06/16 12/28/23 Sharmila Davis APRN, FILLER SHAKER-C [address] [facility] [address] [place] [phone] NURSE PRACTITIONER 01/04/17 04/03/24 Linda Block MD [address] [facility] [address] [place] [address] [place] Information Resources Manager CLINICAL CARDIAC ELECTROPHYSIOLOGY 02/08/17 04/12/23 Jeff Grace MD [address] [facility] [address] [place] [phone] Consulting Physician INTERNAL MEDICINE 02/20/19 3 Zaki Ortiz MD [address] [facility] [address] [place] [phone] Consulting Physician PULMONARY DISEASE 07/12/19 documented as of this encounter
--- OUTSIDE RECORDS SUMMARY | 2024-09-03 20:40 | XMS_ITS | Encounter Summary ---
Author Organization [facility] Address [address] [place] [address]. [place] [address] [place] [address] Care Team Providers Care Racecar Driver Name Role Phone Piyush Pandey MD Unavailable Unavailabl e Megan Infante MD Primary Care Provider [phone] Sharmila Davis APRN, NP-C Unavailable Linda Block MD Unavailable [phone] Jeff Grace MD Unavailable Zaki Ortiz MD Unavailable [phone] Reason for Visit * Reason Comments Follow Up Encounter Details Date Type Department Care Team (Late st Contact Info) Description 04/15/2022 11:15 AM CDT Office Visit [facility] [place] [phone] Piyush Pandey MD Follow Up Social History [...] needed for Constipation., Disp: , Rfl: ??? Kjahckqfgba-Xagwsgllb-Cabhqu 100-62.5-25 MCG/INH AEROSOL POWDER, BREATH ACTIVATED, Inhale [...] ref. provider found PCP: MEGAN INFANTE MD S COMPENSATION ANALYST * Piyush Pandey MD - 04/15/2022 12:00 [...] should he have any questions or problems. #[id number] /MONIQUE S COMPENSATION ANALYST documented in this encounter Plan of Treatment Upcoming Encounters Date Type Department Care Team (Late st Contact Info) Description 09/25/2024 2:00 PM SALES COMPENSATION ANALYST Appointment 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 S/P aortic valve replacement with bioprosthetic valve Heart valve replaced by other means Chronic atrial fibrillation ([facility]) Atrial fibrillation S/P ablation of atrial fibrillation Other postprocedural status Essential hypertension Unspecified essential hypertension Mixed hyperlipidemia Obstructive sleep apnea (adult) (pediatric) Chronic obstructive pulmonary disease, unspecified COPD type ([facility]) documented in this encounter Additional Health Concerns Assessment Noted Time PHQ-9 Depression Total Score: 0 12/02/19 22 1:18 PM CDT documented as of this encounter Care Teams Racecar Driver Relationship Specialty Start Date End Date Megan Infante MD [address] [place] [address] PCP - General FAMILY PRACTICE 04/06/16 Piyush Pandey MD [place] [employer] CARDIOVASCULAR DISEASE 04/06/16 12/28/23 Sharmila Davis APRN, TAX EXPERT-C [address] [facility] [address] [place] [address] NURSE PRACTITIONER 01/04/17 04/03/24 Linda Block MD [address] [facility] [address] [place] [phone] [place] [employer] CLINICAL CARDIAC ELECTROPHYSIOLOGY 02/08/17 04/12/23 Jeff Grace MD [address] [place] [phone] Consulting Physician INTERNAL MEDICINE 02/20/19 3 Zaki Ortiz MD [address] [place] [address] Consulting Physician PULMONARY DISEASE 07/12/19 documented as of this encounter
--- OUTSIDE RECORDS SUMMARY | 2024-09-03 20:40 | XMS_ITS | Encounter Summary ---
Author Organization [facility] Address [address] [place] [address]. [place] [address] [place] [address] Care Team Providers Care Phytopathologist Name Role Phone Piyush Pandey MD Unavailable Unavailabl e Megan Infante MD Primary Care Provider [phone] Sharmila Davis APRN WOOL TAMPER-C Unavailable Linda Block MD Unavailable [phone] Jeff Grace MD Unavailable Zaki Ortiz MD Unavailable [phone] Encounter Details Date Type Department Care Team (Late st Contact Info) Description 11/09/2022 Orders Only [facility] [address] [place] [address] Jacquie Martel, PA-C [address] [place] [address] Social History Tobacco Use Types [...] Status Yes 02/01/2022 5:00 AM CDT [facility] RN Active * Do you have difficulty [...] st Contact Info) Description 09/25/2024 2:00 PM PERSONNEL SECURITY ASSISTANT Appointment [facility] [address] [place] [address] Zayra Powell, FORESTRY PROFESSOR [address] [place] [address] 10/16/2024 3:30 PM PERSONNEL SECURITY ASSISTANT Office Visit [facility] [address] [place] [address] Brit Gonzáles MD [address] [place] [id number] documented as of this encounter Results * (ABNORMAL) PROTIME/INR, VENOUS (11/09/2022 12:11 PM CDT) PROTIME 46.8(H) 9.4 - 12.5 SEC 11/09/2022 12:25 PM CDT [facility] INR 4.0(H) 0.8 - 1.0 11/09/2022 12:25 PM CDT [facility] 11/09/2022 12:1 1 PM CDT us Jacquie Martel PA-C LABORATORY Final Resul t [facility] [address] [place] [address], * (ABNORMAL) BASIC METABOLIC PANEL (11/09/2022 12:11 PM CDT) SODIUM S/P/B 135(L) 136 - 145 MMOL/L 11/09/2022 12:29 PM CDT [facility] POTASSIUM S/P/B 5.6(H) 3.5 - 5.1 MMOL/L 11/09/2022 12:29 PM CDT [facility] CHLORIDE S/P/B 103 98 - 107 MMOL/L 11/09/2022 12:29 PM CDT [facility] CO2 26.4 21.0 - 32.0 MMOL/L 11/09/2022 12:29 PM CDT [facility] GLUCOSE 91 70 - 99 MG/DL 11/09/2022 12:29 PM CDT [facility] Comment: FASTING GLUCOSE 100 TO 125 MG/DL IS CONSISTENT WITH IMPAIRED FASTING GLUCOSE. FASTING GLUCOSE >125 MG/DL IS CONSISTENT WITH DIABETES. RANDOM GLUCOSE >200 MG/DL WITH HYPERGLYCEMIC SYMPTOMS IS CONSISTENT WITH DIABETES. PER ADA GUIDELINES BUN 32(H) 6 - 24 MG/DL 11/09/2022 12:29 PM CDT [facility] CREATININE S/P/B 1.69(H) 0.70 - 1.30 MG/DL 11/09/2022 12:29 PM CDT [facility] CALCIUM S/P/B 9.2 8.4 - 10.5 MG/DL 11/09/2022 12:29 PM CDT [facility] ANION GAP 5.6 5.0 - 15.0 MMOL/L 11/09/2022 12:29 PM CDT [facility] OSMOLALITY (CALC) 286 MOSM/KG 023 12:29 PM CDT [facility] Comment:REFERENCE RANGE NOT ESTABLISHED GFR ESTIMATE 44(L) >89 ML/MIN/1. 73 M2 11/09/2022 12:29 PM CDT [facility] GFR NOTES GFR REFERENCE S: 11/09/2022 12:29 PM CDT [facility] [...] Jacquie Martel PA-C LABORATORY Final Resul t [facility] [address] [place] [address], documented in this encounter Visit Diagnoses Diagnosis Atrial fibrillation status post cardioversion ([facility])- Primary Cardiac complications Hyperkalemia Hyperpotassemia documented in this encounter Additional Health Concerns Assessment Noted Time PHQ-9 Depression Total Score: 0 12/02/19 22 1:18 PM CDT documented as of this encounter Care Teams Phytopathologist Relationship Specialty Start Date End Date Megan Infante MD [address] [place] [phone] PCP - General FAMILY PRACTICE 04/06/16 Piyush Pandey MD [place] Belt [employer]er CARDIOVASCULAR DISEASE 04/06/16 12/28/23 Sharmila Davis, PACKING ATTENDANT, WOOL TAMPER-C [address] [place] [id number] [place] [phone] NURSE PRACTITIONER 01/04/17 04/03/24 Linda Block MD [address] [phone] [place] [employer] CLINICAL CARDIAC ELECTROPHYSIOLOGY 02/08/17 04/12/23 Jeff Grace MD [address] [phone] Consulting Physician INTERNAL MEDICINE 02/20/19 3 Zaki Ortiz MD [address] [phone] Consulting Physician PULMONARY DISEASE 07/12/19 documented as of this encounter
--- OUTSIDE RECORDS SUMMARY | 2024-09-03 20:40 | XMS_ITS | Encounter Summary ---
Author Organization [facility] Address [address] [place] [address]. [place] [address] [place] [address] Care Team Providers Care Mold Repairer Name Role Phone Piyush Pandey MD Unavailable Unavailabl e Megan Infante MD Primary Care Provider [phone] Sharmila Davis APRN VENEREAL DISEASE CONTROL HEAD-C Unavailable Linda Block MD Unavailable [phone] Jeff Grace MD Unavailable Zaki Ortiz MD Unavailable [phone] Reason for Visit * Reason Onset Date Comments Medication Information 11/11/2022 Encounter Details Date Type Department Care Team (Late st Contact Info) Description 11/11/2022 Telephone [facility] [address] [place] [phone] Piyush Pandey MD Medication Information Social History [...] Contact Info) Description 09/25/2024 2:00 PM MASTER MECHANIC Appointment [facility] [address] [place] [address] Zayra Powell, SMALL ARMS REPAIRER [address] [place] [address] 10/16/2024 3:30 PM MASTER MECHANIC [facility] [address] [place] [phone] Brit Gonzáles MD [address] [place], [place] [phone] documented as of this encounter Visit Diagnoses Not on filedocumented in this encounter Additional Health Concerns Assessment Noted Time PHQ-9 Depression Total Score: 0 12/02/19 22 1:18 PM CDT documented as of this encounter Care Teams Mold Repairer Relationship Specialty Start Date End Date Megan Infante MD [address] [place] [address] PCP - General FAMILY PRACTICE 04/06/16 Piyush Pandey MD [place] Outcome Analyst CARDIOVASCULAR DISEASE 04/06/16 12/28/23 Sharmila Davis APRN, VENEREAL DISEASE CONTROL HEAD-C [address] [place] [phone] NURSE PRACTITIONER 01/04/17 04/03/24 Linda Block MD [address] [place] [phone] [place] [employer]st CLINICAL CARDIAC ELECTROPHYSIOLOGY 02/08/17 04/12/23 Jeff Grace MD [address] [phone] Consulting Physician INTERNAL MEDICINE 02/20/19 3 Zaki Ortiz MD [address] [place] [phone] Consulting Physician PULMONARY DISEASE 07/12/19 documented as of this encounter
--- OUTSIDE RECORDS SUMMARY | 2024-09-03 20:40 | XMS_ITS | Encounter Summary ---
Author Organization [facility] Address [address] [place] [address]. [place] [address] [place] [address] Care Team Providers Care Tennis Instructor Name Role Phone Piyush Pandey MD Unavailable Unavailabl e Megan Infante MD Primary Care Provider [phone] Sharmila Davis APRN HEAD OF INSIGHT-C Unavailable [phone] Linda Block MD Unavailable [phone] Jeff Grace MD Unavailable Zaki Ortiz MD Unavailable [phone] Romeo-Concetta Pond MD Unavailable + [phone] Encounter Details Date Type Department Care Team (Late st Contact Info) Description 12/24/2022 Orders Only [facility] [address] [place] [address] Katina Beltran MD [address] [place] [id number] Social History Tobacco Use Types Packs/Day [...] Author Status No 02/01/2022 5:00 AM CDT Snoa Lan RN Active * Because of a [...] Contact Info) Description 09/25/2024 2:00 PM MANAGER PRESENTATION Appointment [facility] [address] [place] [address] Zayra Powell, MANAGER PRIVATE [address] [place] [address] 10/16/2024 3:30 PM MANAGER PRESENTATION Office Visit [facility] [address] [place] [address] Brit Gonzáles MD 9 [place] [address] documented as of this encounter Results * (ABNORMAL) EOSINOPHIL COUNT, URINE (12/24/2022 3:10 PM CDT) EOSINOPHIL, URINE <1(A) <1 % 12/25/2022 2:35 PM CDT [facility] Comment:NORMAL URINE SPECIMEN / Unknown 12/24/2022 3:10 PM CDT us Kaitna Beltran MD URINE ORDERABLES Final Res ult [facility] [address] [place] [address], [place] [phone] * (ABNORMAL) ALBUMIN CREATININE URINE RANDOM (12/24/2022 3:10 PM CDT) ALBUMIN (U) 3.1 MG/DL 12/24/2022 3:43 PM CDT [facility] Comment:REFERENCE RANGE NOT ESTABLISHED CREATININE RANDOM (U) 81.6 MG/DL 12/24/2022 3:43 PM CDT [facility] Comment:REFERENCE RANGE NOT ESTABLISHED ALBUMIN/CREAT RATIO 38.0(H) <30 MG/G 12/24/2022 3:43 PM CDT [facility] Comment: NORMAL TO MILDLY INCREASED ALBUMINURIA: <30 MG/G MODERATELY INCREASED ALBUMINURIA: 30 TO 300 MG/G SEVERELY INCREASED ALBUMINURIA: >300 MG/G PER KDIGO URINE SPECIMEN / Unknown 12/24/2022 3:10 PM CDT us Katina Beltran MD URINE ORDERABLES Final Res ult [facility] [address] [place] [address], [place] [phone] * (ABNORMAL) PTH - INTACT (12/24/2022 3:05 PM CDT) PTH 129.7(H) 18.4 - 80.1 PG/ML 12/25/2022 5:39 PM CDT [facility] Comment: ASSAY PERFORMED BY CHEMILUMINESCENCE METHODOLOGY USING SIEMENS [employer] DisplayAUR XPT REAGENT. PATIENT RESULTS DETERMINED BY ASSAYS USING DIFFERENT MANUFACTURERS FOR METHODS MAY NOT BE COMPARABLE. 12/24/2022 3:05 PM CDT Katina Beltran MD LABORATORY Final [facility] Performing Organization Address [facility] Co de Phone Number [facility] [address] [place] [address], [phone] * (ABNORMAL) VITAMIN D, 25 OH (12/24/2022 3:05 PM CDT) Pathologist [facility] VITAMIN D 25 HYDROXY TOTAL S/P/B 10.4(L) 20.0 - 50.0 NG/ML 12/25/2022 12:30 PM CDT [facility] Comment: <10 ng/mL (Severe deficiency) 10 TO 19 ng/mL (Mild to Moderate deficiency) 20 TO 50 ng/mL (Optimum levels) 51 TO 80 ng/mL (Increased risk of hypercalciuria) >80 ng/mL (Toxicity possible) 12/24/2022 3:05 PM CDT Katina Beltran MD [facility] Per[facility] Organization Address [facility] Co de Phone Number [facility] [address] [place] [address], [phone] * IMMUNOFIXATION (12/24/2022 3:05 PM CDT) Pathologist [facility] IMMUNOFIXATION SERUM SEE PATHOLOGIST'S INTERPRETATION 12/28/2022 2:40 PM CDT [facility] IMMUNOFIX (SERUM) INTERPRETATION THIS SERUM IMMUNOTYPING WAS INTERPRETED BY 12/28/2022 3:41 PM CDT [facility] Comment: DR CONNER EDWARDS MD MONOCLONAL PROTEIN NOT IDENTIFIED 12/24/2022 3:05 PM CDT Katina Beltran MD LABORATORY Final Resu lt Performing Organization Address [facility] Co de Phone Number [facility] [address] [place] [address], [place] [phone] * HEPATITIS C ANTIBODY (12/24/2022 3:05 PM CDT) HEPATITIS C AB NON-REACTI VE NON-REACT ALEK 12/25/2022 6:28 PM CDT [facility] Comment: ANTIBODIES TO HCV NOT DETECTED. DOES NOT EXCLUDE THE POSSIBILITY OF EXPOSURE TO HCV. 12/24/2022 3:05 PM CDT Katina Beltran MD LABORATORY Final Resu lt Performing Organization Address [facility] Co de Phone Number [facility] [address] [place] [address], [place] [phone] * HEPATITIS B SURFACE AG, EIA (12/24/2022 3:05 PM CDT) Pathologist [facility] HEPATITIS B SURFACE AG NON-REACTI VE NON-REACTI VE 12/25/2022 6:28 PM CDT [facility] Comment:HBsAg NOT DETECTED. 12/24/2022 3:05 PM CDT Katina Beltran MD LABORATORY Final Resu lt Performing Organization Address [facility] Co de Phone Number [facility] [address] [place] [address], [place] [phone] * ANTI-GBM (12/24/2022 3:05 PM CDT) ANTI-GBM <1.0 <1.0 AI 12/28/2022 8:20 AM CDT [facility] MAURA MARTIN Comment: ?Value ?? Interpretation ? <1.0 AI: No Antibody Detected ?>or=1.0 AI: Antibody Detected Test Performed by [employer], [employer], [address] [place] [address] Bill Blackmon M.D., Ph.D., Director of Laboratories , CLIA [id number] 12/24/2022 3:05 PM CDT Katina Beltran MD LABORATORY Final Resu lt Performing Organization Address [facility] Co de Phone Number [employer] , [place] [phone] * COMPLEMENT C4 (12/24/2022 3:05 PM CDT) COMPLEMENT C4 35 15 - 53 mg/dL 12/30/2022 8:27 PM CDT [facility] MAURA MARTIN Comment: Test Performed by [employer], [employer], [address] [place] [address] Bill Blackmon M.D., Ph.D., Director of Laboratories , CLIA [id number] 12/24/2022 3:05 PM CDT Katina Beltrna MD LABORATORY Final Resu lt Performing Organization Address [facility]/ZIP Co de Phone Number [employer] , [place] [phone] * COMPLEMENT C3 (12/24/2022 3:05 PM CDT) COMPLEMENT C3 150 82 - 185 mg/dL 12/30/2022 8:27 PM CDT [facility] MAURA MARTIN Comment: Test Performed by Liberty Martinez, [facility], [address] [place], [place] Bill Blackmon M.D., Ph.D., Director of Laboratories , [place] [id number] 12/24/2022 3:05 PM CDT us Katina Beltran MD LABORATORY Final Resu lt [facility] [address] [place], [place] , * ANCA VASCULITIS PANEL (12/24/2022 3:05 PM CDT) [facility] ANCA SCREEN Negative Negative 12/30/2022 10:38 PM CDT [facility] EDENMartyAMBROCIO LEMUS Comment: ANCA Screen includes evaluation [...] <1.0 <1.0 AI 2022 10:38 PM CDT [facility] CASI LEMUS Comment: ?Value ?? Interpretation ? [...] AB <1.0 <1.0 AI 10:38 PM CDT [facility] HARMON-AMBROCIO LEMUS Comment: ? Value ?Interpretation ? <1.0 AI: No Antibody Detected ?>or=1.0 AI: Antibody Detected Autoantibodies to proteinase-3 (OK-3) are accepted as characteristic for granulomatosis with polyangiitis (GPA, Sherie's), and are detectable in 95% of the histologically proven cases. The cytoplasmic IFA pattern, (c-ANCA), is based largely on autoantibody to OK-3 which serves as the primary antigen. These autoantibodies are present in active disease. Test Performed by Liberty Martinez, [facility], [address] [place] [address] Bill Blackmon M.D., Ph.D., Director of Laboratories , [place] [id number] 12/24/2022 3:05 PM CDT us Katina Beltran MD LABORATORY Final Resu lt [facility] [id number] [place], [place] , * ANTINUCLEAR ANTIBODY WI RFX (12/24/2022 3:05 PM CDT) LIANNE 0.3 12/28/2022 1:46 PM CDT [facility] Comment: NEGATIVE: <0.7 RATIO LIANNE PROFILE AND TITER NOT PERFORMED THE LIANNE SCREEN TESTS FOR THE FOLLOWING ANTIBODIES BY EIA: SSA1 (RO), SSB1 (LA), ZAPATA, SCL70, JO1, CENTROMERE, TOOTH GRINDER HISTONE MUST BE ORDERED SEPARATELY DNA (DS) ANTIBODY 3.6 IU/ML 023 1:46 PM CDT [facility] Comment: NEGATIVE: <10 IU/mL EQUIVOCAL: 10 to 15 IU/mL POSITIVE: >15 IU/mL THIS QUANTITATIVE ASSAY IS CALIBRATED TO THE [employer]'S WO/80 STANDARD. THE LEVEL OF dsDNA AUTOANTIBODY GERERALLY CORRELATES WITH THE LEVEL OF DISEASE ACTIVITY IN SYSTEMIC LUPUS ERYTHMATOSUS 12/24/2022 3:05 PM CDT Katina Beltran MD LABORATORY Final Resu lt [facility] [address] [place] [address], [phone] * (ABNORMAL) RENAL FUNCTION PANEL (12/24/2022 3:05 PM CDT) SODIUM S/P/B 136 136 - 145 MMOL/L 12/24/2022 3:32 PM CDT [facility] POTASSIUM S/P/B 5.0 3.5 - 5.1 MMOL/L 12/24/2022 3:32 PM CDT [facility] CHLORIDE S/P/B 100 98 - 107 MMOL/L 12/24/2022 3:32 PM CDT [facility] CO2 26.7 21.0 - 32.0 MMOL/L 12/24/2022 3:32 PM CDT [facility] GLUCOSE 99 70 - 99 MG/DL 12/24/2022 3:32 PM CDT [facility] Comment: FASTING GLUCOSE 100 TO 125 MG/DL IS CONSISTENT WITH IMPAIRED FASTING GLUCOSE. FASTING GLUCOSE >125 MG/DL IS CONSISTENT WITH DIABETES. RANDOM GLUCOSE >200 MG/DL WITH HYPERGLYCEMIC SYMPTOMS IS CONSISTENT WITH DIABETES. PER ADA GUIDELINES BUN 38(H) 6 - 24 MG/DL 12/24/2022 3:32 PM CDT [facility] CREATININE S/P/B 2.35(H) 0.70 - 1.30 MG/DL 12/24/2022 3:32 PM CDT [facility] CALCIUM S/P/B 9.3 8.4 - 10.5 MG/DL 12/24/2022 3:32 PM CDT [facility] ALBUMIN S/P/B 3.1(L) 3.4 - 5.0 G/DL 12/24/2022 3:32 PM CDT [facility] PHOSPHORUS 3.9 2.6 - 4.7 MG/DL 12/24/2022 3:32 PM CDT [facility] ANION GAP 9.3 5.0 - 15.0 MMOL/L 12/24/2022 3:32 PM CDT [facility] OSMOLALITY (CALC) 291 MOSM/KG 023 3:32 PM CDT [facility] Comment:REFERENCE RANGE NOT ESTABLISHED GFR ESTIMATE 29(L) >89 ML/MIN/1. 73 M2 12/24/2022 3:32 PM CDT [facility] GFR NOTES GFR REFERENCE S: 12/24/2022 3:32 PM T [facility] Comment: THE ESTIMATED GFR [...] Katina Beltran MD LABORATORY Final Resu lt [facility] [address] [place] [address], * (ABNORMAL) CBC W/DIFF AUTOMATED (12/24/2022 3:05 PM CDT) WBC 7.17 4.00 - 10.80 x10'3/uL 12/24/2022 3:19 PM CDT [facility] RBC 3.74(L) 4.50 - 6.10 x10'6/uL 12/24/2022 3:19 PM CDT [facility] HGB 8.6(L) 13.0 - 18.0 G/DL 12/24/2022 3:19 PM CDT [facility] HCT 29.1(L) 37.0 - 52.0 % 12/24/2022 3:19 PM CDT [facility] MCV 77.8(L) 78.0 - 100.0 FL 12/24/2022 3:19 PM CDT [facility] MCH 23.0(L) 27.0 - 31.0 PG 12/24/2022 3:19 PM CDT [facility] MCHC 29.6(L) 33.0 - 36.0 G/DL 12/24/2022 3:19 PM CDT [facility] RDW 17.6(H) 11.5 - 14.5 % 12/24/2022 3:19 PM CDT [facility] PLT 168 150 - 350 x10'3/uL 12/24/2022 3:19 PM CDT [facility] MPV 9.6 7.4 - 10.4 FL 12/24/2022 3:19 PM CDT [facility] CBC COMMENT NORMAL REFERENCE RANGE NOT ESTABLISHED FOR THE PROPORTIONAL LEUKOCYTE DIFFERENTIAL. 12/24/2022 3:19 PM CDT [facility] NEUTROPHILS % 68.8 % 12/24/2022 3:19 PM CDT [facility] LYMPHOCYTES % 17.2 % 12/24/2022 3:19 PM CDT [facility] MONOCYTES % 9.9 % 12/24/2022 3:19 PM CDT [facility] EOSINOPHILS % 3.1 % 12/24/2022 3:19 PM CDT [facility] BASOPHILS % 0.7 % 12/24/2022 3:19 PM CDT [facility] IMMATURE GRANS % 0.3 % 12/25/19 3:19 PM CDT [facility] NRBC 0.0 % 12/24/2022 3:19 PM CDT [facility] ABS. NEUTROPHILS 4.94 1.60 - 8.30 x10'3/uL 12/24/2022 3:19 PM CDT [facility] ABS. LYMPHOCYTES 1.23 0.80 - 4.70 x10'3/uL 12/24/2022 3:19 PM CDT [facility] ABS. MONOCYTES 0.71 0.00 - 1.50 x10'3/uL 12/24/2022 3:19 PM CDT [facility] ABS. EOSINOPHILS 0.22 0.00 - 0.40 x10'3/uL 12/24/2022 3:19 PM CDT [facility] ABS. BASOPHILS 0.05 0.00 - 0.20 x10'3/uL 12/24/2022 3:19 PM CDT [facility] ABS. IMMATURE GRANULOCYTES 0.02 0.00 - 0.03 x10'3/uL 12/24/2022 3:19 PM CDT [facility] ABS. NUCLEATED RBC'S 0.00 0.00 x10'3/uL 12/24/2022 3:19 PM CDT [facility] 12/24/2022 3:05 PM CDT us Katina Beltran MD LABORATORY Final Resu lt [facility] [address] [place] [address], documented in this encounter Visit Diagnoses Diagnosis Decreased GFR- Primary Nonspecific abnormal results of kidney function study CKD (chronic kidney disease), stage III ([facility]) Chronic kidney disease, Stage III (moderate) documented in this encounter Additional Health Concerns Assessment Noted Time PHQ-9 Depression Total Score: 0 12/02/19 22 1:18 PM CDT documented as of this encounter Care Teams Tennis Instructor Relationship Specialty Start Date End Date Megan Infante MD [address] [place] [phone] PCP - General FAMILY PRACTICE 04/06/16 Piyush Pandey MD [place] [employer] Restoration Specialist CARDIOVASCULAR DISEASE 04/06/16 12/28/23 Sharmila Davis, SUPERVISOR ROSE GRADING, HEAD OF INSIGHT-C [address] [phone] NURSE PRACTITIONER 01/04/17 04/03/24 Linda Block MD [address] [address] [place] [employer] Restoration Specialist CLINICAL CARDIAC ELECTROPHYSIOLOGY 02/08/17 04/12/23 Jeff Grace MD [address] [address] Consulting Physician INTERNAL MEDICINE 02/20/19 3 Zaki Ortiz MD [address] [address] Consulting Physician PULMONARY DISEASE 07/12/19 Concetta Acevedo MD [address] [place] [id number] Surgeon NEUROLOGICAL SURGERY 12/16/22 documented as of this encounter
--- OUTSIDE RECORDS SUMMARY | 2024-09-03 20:40 | XMS_ITS | Encounter Summary ---
Author Organization [facility] Address [address] [place] [address]. [place] [address] [place] [address] Care Team Providers Care Supersonic Engineer Name Role Phone Piyush Pandey MD Unavailable Unavailabl e Megan Infante MD Primary Care Provider [phone] Sharmila Davis APRN MANAGER FITNESS-C Unavailable [phone] Linda Block MD Unavailable [phone] Jeff Grace MD Unavailable Zaki Ortiz MD Unavailable [phone] Encounter Details Date Type Department Care Team (Late st Contact Info) Description 11/09/2022 11:54 AM CDT - 11/09/2022 11:59 PM CDT Hospital Encounter [facility] [address] [place] [address] Megan Infante MD [address] [place] [address] Jacquie [place]el, PA-C [address] [place] [address] Discharge Disposition: Home or Self [...] 2 (two) times a day. 3 carvedilol 6.25 MG tablet Take 12.5 mg [...] cream Apply topically as needed. 01/31/2020 3 potassium chloride CR (KLOR-CON M) 20 MEQ tablet Take 1 tablet (20 mEq total) by mouth daily. 05/14/2022 3 rOPINIRole (REQUIP) 4 MG tablet Take 1 tablet (4 mg total) by mouth nightly at bedtime. 10/17/2022 4 rOPINIRole 2 MG tablet Take 4 mg by mouth nightly. 11/20/2021 3 spironolactone (ALDACTONE) 25 MG tablet Take 1 [...] Contact Info) Description 09/25/2024 2:00 PM JAVA APPLICATION DEVELOPER Appointment [facility] [address] [place], [place] [phone] Zayra Powell, SYSTEMS APPLICATIONS PROGRAMMING LEAD [address] [place] [address] 10/16/2024 3:30 PM JAVA APPLICATION DEVELOPER Office Visit [facility] [address] [address] Brit Gonzáles MD [address] [place] [address] documented as of this encounter Procedures Procedure Name Priority Date/Time Associated Diagnosis Comments PROTHROMBIN TIME, VENOUS Routine 11/09/2022 12:11 PM CDT Atrial fibrillation status post cardioversion ([facility]) BASIC METABOLIC PANEL Routine 11/09/2022 12:11 PM CDT Hyperkalemia documented in this encounter Results * (ABNORMAL) PROTIME/INR, VENOUS (11/09/2022 12:11 PM CDT) PROTIME 46.8(H) 9.4 - 12.5 SEC 11/09/2022 12:25 PM CDT [facility] INR 4.0(H) 0.8 - 1.0 11/09/2022 12:25 PM CDT [facility] 11/09/2022 12:1 1 PM CDT us Jacquie Martel PA-C LABORATORY Final Resul t [facility] [address] [place] [address], * (ABNORMAL) BASIC METABOLIC PANEL (11/09/2022 12:11 PM CDT) SODIUM S/P/B 135(L) 136 - 145 MMOL/L 11/09/2022 12:29 PM CDT [facility] POTASSIUM S/P/B 5.6(H) 3.5 - 5.1 MMOL/L 11/09/2022 12:29 PM CDT [facility] CHLORIDE S/P/B 103 98 - 107 MMOL/L 11/09/2022 12:29 PM CDT [facility] CO2 26.4 21.0 - 32.0 MMOL/L 11/09/2022 12:29 PM CDT [facility] GLUCOSE 91 70 - 99 MG/DL 11/09/2022 12:29 PM T [facility] Comment: FASTING GLUCOSE 100 TO 125 MG/DL IS CONSISTENT WITH IMPAIRED FASTING GLUCOSE. FASTING GLUCOSE >125 MG/DL IS CONSISTENT WITH DIABETES. RANDOM GLUCOSE >200 MG/DL WITH HYPERGLYCEMIC SYMPTOMS IS CONSISTENT WITH DIABETES. PER ADA GUIDELINES BUN 32(H) 6 - 24 MG/DL 11/09/2022 12:29 PM T [facility] CREATININE S/P/B 1.69(H) 0.70 - 1.30 MG/DL 11/09/2022 12:29 PM CDT [facility] CALCIUM S/P/B 9.2 8.4 - 10.5 MG/DL 11/09/2022 12:29 PM T [facility] ANION GAP 5.6 5.0 - 15.0 MMOL/L 11/09/2022 12:29 PM T [facility] OSMOLALITY (CALC) 286 MOSM/KG 023 12:29 PM T [facility] Comment:REFERENCE RANGE NOT ESTABLISHED GFR ESTIMATE 44(L) >89 ML/MIN/1. 73 M2 11/09/2022 12:29 PM T [facility] GFR NOTES GFR REFERENCE S: 11/09/2022 12:29 PM T [facility] Comment: THE ESTIMATED GFR IS CALCULATED [...] Jacquie Martel PA-C LABORATORY Final Resul t [facility] [address] [phone] documented in this encounter Visit Diagnoses Diagnosis Hyperkalemia Hyperpotassemia Atrial fibrillation status post cardioversion ([facility]) Cardiac complications documented in this encounter Additional Health Concerns Assessment Noted Time PHQ-9 Depression Total Score: 0 12/02/19 22 1:18 PM CDT documented as of this encounter Care Teams Supersonic Engineer Relationship Specialty Start Date End Date Megan Infante MD [address] [facility] [place] [phone] PCP - General FAMILY PRACTICE 04/06/16 Piyush Pandey MD [place] Support Service Tech CARDIOVASCULAR DISEASE 04/06/16 12/28/23 Sharmila Davis APRN, MANAGER FITNESS-C [address] [facility] [address] [place] [phone] NURSE PRACTITIONER 01/04/17 04/03/24 Linda Block MD [address] [facility] [address] [place] [phone] [place] Support Service Tech CLINICAL CARDIAC ELECTROPHYSIOLOGY 02/08/17 04/12/23 eJff Grace MD [address] [place] [phone] Consulting Physician INTERNAL MEDICINE 02/20/19 3 Zaki Ortiz MD [address] [place] [address] Consulting Physician PULMONARY DISEASE 07/12/19 documented as of this encounter
--- OUTSIDE RECORDS SUMMARY | 2024-09-03 20:40 | XMS_ITS | Encounter Summary ---
Author Organization [facility] Address [address] [place] [address]. [place] [address] [place] [address] Care Team Providers Care Carton Making Machine Operator Name Role Phone Piyush Pandey MD Unavailable Unavailabl e Megan Infante MD Primary Care Provider [phone] Sharmila Davis APRN ABATTOIR SUPERVISOR-C Unavailable [phone] Linda Block MD Unavailable [phone] Jeff Grace MD Unavailable Zaki Ortiz MD Unavailable [phone] Reason for Visit * Reason Comments Therapy Report (SCAN) Encounter Details Date Type Department Care Team ([facility] Contact Info) Description 03/03/2022 Scan [facility] Information Services [facility] [facility] [place] [address] Scanned, Documents Therapy Report (SCAN) Social History [...] Contact Info) Description 09/25/2024 2:00 PM SHOE REPAIRER APPRENTICE Appointment [facility] [address] [place] [address] Zayra Powell, SALON STYLIST [address] [place] [address] 10/16/2024 3:30 PM SHOE REPAIRER APPRENTICE Office Visit [facility] [address] [place] [address] Brit Gonzáles MD [address] [place] [address] documented as of this encounter Visit Diagnoses Not on filedocumented in this encounter Additional Health Concerns Assessment Noted Time PHQ-9 Depression Total Score: 0 12/02/19 22 1:18 PM CDT documented as of this encounter Care Teams Carton Making Machine Operator Relationship Specialty Start Date End Date Megan Infante MD [address] [place] [phone] PCP - General FAMILY PRACTICE 04/06/16 Piyush Pandey MD [place] [facility] CARDIOVASCULAR DISEASE 04/06/16 12/28/23 Sharmila Davis APRN, ABATTOIR SUPERVISOR-C [address] [phone] NURSE PRACTITIONER 01/04/17 04/03/24 Linda Block MD [address] [phone] [place] [facility] CLINICAL CARDIAC ELECTROPHYSIOLOGY 02/08/17 04/12/23 Jeff Grace MD [address] [phone] Consulting Physician INTERNAL MEDICINE 02/20/19 3 Zaki Ortiz MD [address] [phone] Consulting Physician PULMONARY DISEASE 07/12/19 documented as of this encounter
--- OUTSIDE RECORDS SUMMARY | 2024-09-03 20:40 | XMS_ITS | Encounter Summary ---
Author Organization [facility] Address [facility] [place] [address] [place] [address] Care Team Providers Care Sheriffs Detective Name Role Phone Amauri Stinson MD Unavailable Unavailabl e Megan Infante MD Primary Care Provider [phone] Sharmila Davis APRN TANK RIVETER-C Unavailable [phone] Linda Block MD Unavailable [phone] Jeff Grace MD Unavailable Zaki Ortiz MD Unavailable [phone] [facility] Unavailable + [phone] Encounter Details Date Type Department Care Team (Late st Contact Info) Description 12/25/2022 Orders Only [facility] [address] [place] [address] Amauri Stinson MD Social [...] st Contact Info) Description 09/25/2024 2:00 PM SHAKE OUT WORKER Appointment [facility] [address] [place] [address] Zayra Powell, PLASTIC EXTRUDING MACHINE OPERATOR [address] [place] [address] 10/16/2024 3:30 PM SHAKE OUT WORKER Office Visit [facility] [address] [place] [address] Brit Gonzáles MD [address] [place] [address] documented as of this encounter Results * ELECTROCARDIOGRAM (12/28/2022 10:31 AM CDT) 12/28/2022 10:3 1 AM CDT Narrative [facility] - 12/28/2022 2:06 PM CDT ? [facility], [facility] ?[address] [place], [place] ??[address] ? Test Date: ?2022-12-28 Pat Name: ? OBIE SIMS ?Department: ?? 105 ? Room: ? Gender: ? Male ? Sql Developer: ?? AAB : ?1955 ? Requested By: AMAURI STINSON Order Number: [id number] ?Reading MD: ?? Amauri Stinson ? Measurements Intervals ?Wagram ? Rate: ? 80 ? P: ? UT: ? 0 ?QRS: ?-68 QRSD: ? 138 ?T: ?92 QT: ? 372 ? QTc: ?432 ? Interpretive Statements ATRIAL FIBRILLATION LEFT AXIS DEVIATION INTRAVENTRICULAR CONDUCTION DELAY Procedure Note Amauri Stinson MD - 12/28/2022 [facility], [place] [address] [place] [address] Test Date: 2022-12-28 Pat Name: OBIE SIMS Department: 105 Room: Gender: Male Sql Developer: AAB : 1955 Requested By: AMAURI STINSON Order Number: [id number] Sage MD: Amauri Stinson Measurements Intervals Wagram Rate: 80 P: UT: 0 QRS: -68 QRSD: 138 T: 92 QT: 372 QTc: 432 Interpretive Statements ATRIAL FIBRILLATION LEFT AXIS DEVIATION INTRAVENTRICULAR CONDUCTION DELAY us Amauri Stinson MD PROCEDURES-ORDERABLE NO DEONTE RGE Final Result [facility] documented in this encounter Visit Diagnoses Diagnosis Chronic atrial fibrillation (CMS/HCC HHS/HCC)- Primary Atrial fibrillation Mixed hyperlipidemia Essential hypertension Unspecified essential hypertension Preoperative cardiovascular examination- Primary Pre-operative cardiovascular examination Acute on chronic combined systolic and diastolic congestive heart failure ([facility]) 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 S/P aortic valve replacement with bioprosthetic valve Heart valve replaced by other means Essential hypertension Unspecified essential hypertension Chronic atrial fibrillation ([facility]) Atrial fibrillation Mixed hyperlipidemia documented in this encounter Additional Health Concerns Assessment Noted Time PHQ-9 Depression Total Score: 0 12/02/19 22 1:18 PM CDT documented as of this encounter Care Teams Sheriffs Detective Relationship Specialty Start Date End Date Megan Infante MD [address] [place] [phone] PCP - General FAMILY PRACTICE 04/06/16 Amauri Stinson MD [place] Alberene Stone Setter CARDIOVASCULAR DISEASE 04/06/16 12/28/23 Sharmila Davis, CLOTH MENDER, TANK RIVETER-C [address] [facility] [place] [phone] NURSE PRACTITIONER 01/04/17 04/03/24 Linda Block MD [address] [place] [address] [place] Alberene Stone Setter CLINICAL CARDIAC ELECTROPHYSIOLOGY 02/08/17 04/12/23 Jeff Grace MD [address] [place] [phone] Consulting Physician INTERNAL MEDICINE 02/20/19 3 Zaki Ortiz MD [address] [phone] Consulting Physician PULMONARY DISEASE 07/12/19 Concetta Acevedo MD [address] [place] [address] Surgeon NEUROLOGICAL SURGERY 12/16/22 documented as of this encounter
--- OUTSIDE RECORDS SUMMARY | 2024-09-03 20:40 | XMS_ITS | Encounter Summary ---
Author Organization [facility] Address [address] [place] [address]. [place] [address] [place] [address] Care Team Providers Care Gericare Aide Teacher Name Role Phone Piyuhs Pandey MD Unavailable Unavailabl e Megan Infante MD Primary Care Provider [phone] Sharmila Davis APRN PHOTOGRAPHY COLORIST-C Unavailable [phone] Linda Block MD Unavailable [phone] Jeff Grace MD Unavailable Zaki Ortiz MD Unavailable [phone] Encounter Details Date Type Department Care Team [...] Contact Info) Description 09/25/2024 2:00 PM LICENSED THERAPIST Appointment [facility] [address] [place] [address] Zayra Powell, [place] [facility] [address] [place] [address] 10/16/2024 3:30 PM LICENSED THERAPIST Office Visit [facility] [address] [place] [address] Brit Gonzáles MD [address] [place] [address] documented as of this encounter Visit Diagnoses Not on filedocumented in this encounter Additional Health Concerns Assessment Noted Time PHQ-9 Depression Total Score: 0 12/02/19 22 1:18 PM CDT documented as of this encounter Care Teams Gericare Aide Teacher Relationship Specialty Start Date End Date Megan Infante MD [address] [facility] [place] [phone] PCP - General FAMILY PRACTICE 04/06/16 Piyush Pandey MD [place] Ski Base Trimmer CARDIOVASCULAR DISEASE 04/06/16 12/28/23 Sharmila Davis, ENT SURGEON, PHOTOGRAPHY COLORIST-C [address] [facility] [address] [place] [phone] NURSE PRACTITIONER 01/04/17 04/03/24 Linda Block MD [address] [phone] [place] Ski Base Trimmer CLINICAL CARDIAC ELECTROPHYSIOLOGY 02/08/17 04/12/23 Jeff Grace MD [address] [address] Consulting Physician INTERNAL MEDICINE 02/20/19 3 Zaki Ortiz MD [address] [address] Consulting Physician PULMONARY DISEASE 07/12/19 documented as of this encounter
--- OUTSIDE RECORDS SUMMARY | 2024-09-03 20:40 | XMS_ITS | Encounter Summary ---
Author Organization [facility] Address [address] [place] [address]. [place] [address] [place] [address] Care Team Providers Care Risk Control Product Liability Director Name Role Phone Piyush Pandey MD Unavailable Unavailabl e Megan Infante MD Primary Care Provider [phone] Sharmila Davis APRN SALES OPERATIONS MANAGER-C Unavailable Linda Block MD Unavailable [phone] Jeff Grace MD Unavailable Zaki Ortiz MD Unavailable [phone] Encounter Details Date Type Department Care Team (Latest Contact Info) Description 02/26/2022 2:22 PM CDT - 02/26/2022 11:59 PM CDT Hospital Encounter [facility] [address] [place] [address] Jacinto Hamilton MD [address] [place] [address] Discharge Disposition: Home or Self [...] (50 mg total) by mouth daily. 10/03/2021 amlodipine 2.5 MG tablet Take 1 tablet [...] 4 mg by mouth nightly. 11/20/2021 3 traZODone 100 MG tablet Take 1 tablet (100 mg total) by mouth nightly as needed for Sleep. 30 tablet 02/06/2022 2 warfarin 10 MG tablet Take 5 mg by mouth in the morning. As directed 10/21/2021 3 documented as of this encounter Plan of Treatment Upcoming Encounters Date Type Department Care Team (Late st Contact Info) Description 09/25/2024 2:00 PM NEWS CAMERAMAN Appointment [facility] [address] [facility] [place] [address] Zayra Powell, SENIOR COURTROOM CLERK [address] [place], [place] [address] 10/16/2024 3:30 PM NEWS CAMERAMAN Office Visit [facility] [address] [facility] [place] [phone] Brit Gonzáles MD [address] [place] [address] documented as of this encounter Procedures Procedure [...] documented as of this encounter Care Teams Risk Control Product Liability Director Relationship Specialty Start Date End Date Megan Infante MD [address] [place] [address] PCP - General FAMILY PRACTICE 04/06/16 Piyush Pandey MD [place] Veneer Measurer CARDIOVASCULAR DISEASE 04/06/16 12/28/23 Sharmila Davis APRN, SALES OPERATIONS MANAGER-C [address] [facility] [address] [place] [phone] NURSE PRACTITIONER 01/04/17 04/03/24 Linda Block MD [address] [address] [place] Veneer Measurer CLINICAL CARDIAC ELECTROPHYSIOLOGY 02/08/17 04/12/23 Jeff Grace MD [address] [phone] Consulting Physician INTERNAL MEDICINE 02/20/19 3 Zaki Ortiz MD [address] [facility] [address] [address] Consulting Physician PULMONARY DISEASE 07/12/19 documented as of this encounter
--- OUTSIDE RECORDS SUMMARY | 2024-09-03 20:40 | XMS_ITS | Encounter Summary ---
Author Organization [facility] Address [address] [place] [address]. [place] [address] [place] [address] Care Team Providers Care Autocad Operator Name Role Phone Piuysh Pandey MD Unavailable Unavailabl e Megan Infante MD Primary Care Provider [phone] Sharmila Davis APRN, NP-C Unavailable Linda Block MD Unavailable [phone] Jeff Grace MD Unavailable Zaki Ortiz MD Unavailable [phone] Reason for Visit * Reason Comments Follow Up Encounter Details Date Type Department Care Team (Late st Contact Info) Description 11/09/2022 11:00 AM CDT Office Visit [facility] [place] [phone] Piyush Pandey MD Follow Up Social History [...] needed for Constipation., Disp: , Rfl: ??? Ihawsamvqwb-Whwbkrjmw-Ssgawc 100-62.5-25 MCG/INH AEROSOL POWDER, BREATH ACTIVATED, Inhale [...] performed by Kilo Navarro MD at [facility] OR ??? COLONOSCOPY N/A 01/27/2022 COLONOSCOPY WITH COLD SNARE POLYPECTOMY performed by Kilo Navarro MD at [facility] OR ??? HIP ARTHROPLASTY Left ??? [...] should he have any questions or problems. #[id number] /PUS documented in this encounter Plan of Treatment Upcoming Encounters Date Type Department Care Team (Late st Contact Info) Description 09/25/2024 2:00 PM VACUUM TECHNICIAN Appointment [facility] [address] [place] [address] Zayra Powell FIELD ORGANIZER [address] [place] [address] 10/16/2024 3:30 PM VACUUM TECHNICIAN Office Visit [facility] [facility] [address] [place] [phone] Brit Gonzáles MD [address] [place] [address] documented as of this encounter Visit Diagnoses Diagnosis Acute on chronic combined systolic and diastolic congestive heart failure ([facility] HHS/HCC)- Primary Acute on chronic combined systolic and diastolic heart failure S/P aortic valve replacement with bioprosthetic valve Heart valve replaced by other means Chronic atrial fibrillation ([facility] HHS/HCC) Atrial fibrillation S/P ablation of atrial fibrillation Other postprocedural status Essential hypertension Unspecified essential hypertension Mixed hyperlipidemia Obstructive sleep apnea (adult) (pediatric) Chronic obstructive pulmonary disease, unspecified COPD type ([facility] HHS/HCC) Noncompliance Personal history of noncompliance with medical treatment, presenting hazards to health documented in this encounter Additional Health Concerns Assessment Noted Time PHQ-9 Depression Total Score: 0 12/02/19 22 1:18 PM CDT documented as of this encounter Care Teams Autocad Operator Relationship Specialty Start Date End Date Megan Infante MD [address] [place] [phone] PCP - General FAMILY PRACTICE 04/06/16 Piyush Pandey MD [place] Brim Molder CARDIOVASCULAR DISEASE 04/06/16 12/28/23 Sharmila Davis, DANNY, ELECTRIC MOTOR REPAIR SUPERVISOR-C [address] [facility] [address] [place] [address] NURSE PRACTITIONER 01/04/17 04/03/24 Linda Block MD [address] [address] [place] Brim Molder CLINICAL CARDIAC ELECTROPHYSIOLOGY 02/08/17 04/12/23 Jeff Grace MD [address] [phone] Consulting Physician INTERNAL MEDICINE 02/20/19 3 Zaki Ortiz MD [address] [address] Consulting Physician PULMONARY DISEASE 07/12/19 documented as of this encounter
--- OUTSIDE RECORDS SUMMARY | 2024-09-03 20:40 | XMS_ITS | Encounter Summary ---
Author Organization [facility] Address [address] [place] [address]. [place] [address] [place] [address] Care Team Providers Care Television Maintenance Man Name Role Phone Piyush Pandey MD Unavailable Unavailabl e Megan Infante MD Primary Care Provider [phone] Sharmila Davis APRN EMPLOYEE RELATIONS DIRECTOR-C Unavailable [phone] Linda Block MD Unavailable [phone] Jeff Grace MD Unavailable Zaki Ortiz MD Unavailable [phone] Encounter Details Date Type Department Care Team [...] st Contact Info) Description 09/25/2024 2:00 PM PLASTERING CONTRACTOR Appointment [facility] [address] [place] [address] Zayra Powell, [facility] [address] [place] [address] 10/16/2024 3:30 PM PLASTERING CONTRACTOR Office Visit [facility] [address] [place] [address] Brit Gonzáles MD [address] [place] [address] documented as of this encounter Visit Diagnoses Not on filedocumented in this encounter Additional Health Concerns Assessment Noted Time PHQ-9 Depression Total Score: 0 12/02/19 22 1:18 PM CDT documented as of this encounter Care Teams Television Maintenance Man Relationship Specialty Start Date End Date Megan Infante MD [address] [facility] [place] [phone] PCP - General FAMILY PRACTICE 04/06/16 Piyush Pandey MD [place] Portable Power Tool Repairer CARDIOVASCULAR DISEASE 04/06/16 12/28/23 Sharmila Davis, PLANE TABLEMAN, EMPLOYEE RELATIONS DIRECTOR-C [address] [facility] [address] [place] [phone] NURSE PRACTITIONER 01/04/17 04/03/24 Linda Block MD [address] [phone] [place] Portable Power Tool Repairer CLINICAL CARDIAC ELECTROPHYSIOLOGY 02/08/17 04/12/23 Jeff Grace MD [address] [address] Consulting Physician INTERNAL MEDICINE 02/20/19 3 Zaki Ortiz MD [address] [address] Consulting Physician PULMONARY DISEASE 07/12/19 documented as of this encounter
--- OUTSIDE RECORDS SUMMARY | 2024-09-03 20:40 | XMS_ITS | Encounter Summary ---
Author Organization [facility] Address [address] [place] [address]. [place] [address] [place] [address] Care Team Providers Care Relief Pilot Name Role Phone Piyush Pandey MD Unavailable Unavailabl e Megan Infante MD Primary Care Provider [phone] Sharmila Davis APRN, NP-C Unavailable Linda Block MD Unavailable [phone] Jeff Grace MD Unavailable Zaki Ortiz MD Unavailable [phone] Romeo-Concetta Pond MD Unavailable + [phone] Reason for Visit * Reason Onset Date Comments Surgical Clearance 12/16/2022 Warfarin lori mmendation also Encounter Details Date Type Department Care Team (Late st Contact Info) Description 12/16/2022 Telephone [facility] [address] [place] [address] Piyush Pandey MD Surgical Clearance [...] clearance. Expressed understanding * Sharmila Davis APRN, FIRER MARINE-C - 12/16/2022 12:23 PM CDT Our preop [...] her he has an appt with the FIRER MARINE on 12/28 and those instructions will be in his clinic note. documented in this encounter Plan of Treatment Upcoming Encounters Date Type Department Care Team (Late st Contact Info) Description 09/25/2024 2:00 PM MICROSOFT DYNAMICS CONSULTANT Appointment [facility] [address] [place] [address] Zayra Powell, PLANT HR MANAGER [address] [place] [address] 10/16/2024 3:30 PM MICROSOFT DYNAMICS CONSULTANT Office Visit [facility] [address] [place] [phone] Brit Gonzáles MD [address] [place] [address] documented as of this encounter Visit Diagnoses Not on filedocumented in this encounter Additional Health Concerns Assessment Noted Time PHQ-9 Depression Total Score: 0 12/02/19 22 1:18 PM CDT documented as of this encounter Care Teams Relief Pilot Relationship Specialty Start Date End Date Megan Infante MD [address] [place] [phone] PCP - General FAMILY PRACTICE 04/06/16 Piyush Pandey MD [place] Supervisor Furnace Process CARDIOVASCULAR DISEASE 04/06/16 12/28/23 Sharmila Davis APRN, FIRER MARINE-C [address] [phone] NURSE PRACTITIONER 01/04/17 04/03/24 Linda Block MD [address] [phone] [place] Supervisor Furnace Process CLINICAL CARDIAC ELECTROPHYSIOLOGY 02/08/17 04/12/23 Jeff Grace MD [address] [phone] Consulting Physician INTERNAL MEDICINE 02/20/19 3 Zaki Ortiz MD [address] [phone] Consulting Physician PULMONARY DISEASE 07/12/19 Concetta Acevedo MD [address] [place] [address] Surgeon NEUROLOGICAL SURGERY 12/16/22 documented as of this encounter
--- OUTSIDE RECORDS SUMMARY | 2024-09-03 20:41 | XMS_ITS | Encounter Summary ---
Author Organization [facility] Address Critical access hospital6 [facility] [place] [address] [place] [address] Care Team Providers Care Powder And Primer Canning Leader Name Role Phone Piyush Pandey MD Unavailable Unavailabl e Megan Infante MD Primary Care Provider [phone] Sharmila Davis APRN FALSEWORK BUILDER-C Unavailable Linda Block MD Unavailable [phone] Jeff Grace MD Unavailable Zaki Ortiz MD Unavailable [phone] Reason for Visit * Auth/Cert Specialty Diagnoses / Procedures Referred By Yung sequeira Referred To Contact Diagnoses Dysphagia Encounter for screening colonoscopy DYSPHAGIA / SCREENING Procedures UPPER GI ENDOSCOPY,BIOPSY COLONOSCOPY,DIAGNOSTIC EGD WITH BIOPSY COLONOSCOPY Referral ID Status Reason Start Date Expiration Date Visits Re quested Visits Authorized [id number] 1 1 Encounter Details Date Type Department Care Team (Late st Contact Info) Description 01/27/2022 7:46 AM CDT - 01/27/2022 10:46 AM CDT Hospital Encounter [facility] [address] [place] [address] Gloria Navarro MD [address] [place] [address] Discharge Disposition: Home or Self Care [...] * Moderate Sedation in Adults Discharge Instructions (Slovak) * Esophageal Dilation (Slovak) * Upper GI Endoscopy Discharge Instructions (Slovak) * Colon Polypectomy Discharge Instructions (Slovak) documented in this encounter Medications at Time [...] by mouth nightly as needed. 10/09/2016 2 enoxaparin 40 MG/0.4ML Solution Prefilled Syringe 01/21/2022 [...] needed. 01/31/2020 3 NYSTOP powder 02/18/2021 2 potassium chloride CR 20 MEQ tablet Take 40 mEq by mouth daily. 2 rOPINIRole 2 MG tablet Take 4 mg by mouth nightly. 11/20/2021 3 trazodone 100 MG tablet Take 200 mg [...] by mouth as needed for Constipation. ??? Mepuadhurya-Chrxzmxfr-Ylsneu 100-62.5-25 MCG/INH AEROSOL POWDER, BREATH ACTIVATED Inhale [...] (Incomplete) performed by Gloria Navarro MD at [facility] OR ??? HIP ARTHROPLASTY Left ??? KNEE [...] IN ICU NO RESIDENT OF [facility] NO IMPRESSION: Patient Active Problem List Diagnosis ??? S/P ablation of atrial fibrillation ??? LV dysfunction ??? Essential hypertension ??? Mixed hyperlipidemia ??? Diabetes mellitus, type II (CMS/HCC) ??? Coronary artery disease involving mentasta coronary artery of mentasta heart without angina pectoris ??? COPD (chronic [...] st Contact Info) Description 09/25/2024 2:00 PM SHUTTLE BUGGY OPERATOR Appointment [facility] [address] [facility] [place] [address] Zayra Powell Oli, [facility] [address] [place] [address] 10/16/2024 3:30 PM SHUTTLE BUGGY OPERATOR Office Visit [facility] [address] [place] [phone] Brit Gonzáles MD [address] [place] [address] documented as of this encounter Procedures Procedure [...] DESCRIPTION GASTRIC BIOPSY 01/27/2022 9:55 AM CDT [facility] SPECIAL REQUESTS NO SPECIAL REQUEST 01/27/2022 9:55 AM CDT [facility] DIRECT EXAM PRESUMPTIVE NEGATIVE FOR H. PYLORI 01/28/2022 10:18 AM CDT [facility] Tissue specimen (specimen) GASTRIC BIOPSY SPECIMEN / Unknown 01/27/2022 9:21 AM CDT Gloria Navarro MD MICROBIOLOGY - GENERAL ORDERA BLES Final Result [facility] [address] [place] [address], * Colonoscopy (01/27/2022 6:48 AM CDT) us Gloria Navarro MD GI PROCEDURE ORDERABLES Final Result * ENDOSCOPY (01/27/2022 6:48 AM CDT) us Gloria Navarro MD SCANNING Final Result * Pathology (01/27/2022 12:00 AM CDT) PATHOLOGY [facility] ? Department of Laboratory Medicine ?[address] [facility] ?[place] [address] ? , extension [phone] ? Pathology Report ? Surgical Pathology Report Name: OBIE SIMS ?Specimen #: [id number] Age: 12 1955 (Age: 66) ? Location: [facility] Sex: M ?Procedure Date: 01/27/2022 Hospital #: [id number] ?Date Received: 01/27/2022 Date Reported: 01/28/2022 Provider: [...] Electronically Signed Out ? Taye Martinez MD-PhD [facility] Tissue specimen (specimen) DUODENAL STRUCTURE / Unknown 01/27/2022 9:20 AM CDT Tissue specimen (specimen) STOMACH STRUCTURE / Unknown 01/27/2022 9:22 AM CDT Tissue specimen (specimen) COLON STRUCTURE / Unknown 01/27/2022 9:41 AM CDT Gloria Navarro MD PATHOLOGY/CYTOLOGY ORDERABLES Final Result [facility] [address] [place] [address], [id number] documented in this encounter Visit Diagnoses Not [...] documented as of this encounter Care Teams Powder And Primer Canning Leader Relationship Specialty Start Date End Date Megan Infante MD [address] [place] [address] PCP - General FAMILY PRACTICE 04/06/16 Piyush Pandey MD [place] Sql Ssis Developer CARDIOVASCULAR DISEASE 04/06/16 12/28/23 Sharmila Davis APRN, FALSEWORK BUILDER-C [address] [facility] [address] [place] [phone] NURSE PRACTITIONER 01/04/17 04/03/24 Linda Block MD [address] [address] [place] Sql Ssis Developer CLINICAL CARDIAC ELECTROPHYSIOLOGY 02/08/17 04/12/23 Jeff Grace MD [address] [phone] Consulting Physician INTERNAL MEDICINE 02/20/19 3 Zaki Ortiz MD [address] [phone] Consulting Physician PULMONARY DISEASE 07/12/19 documented as of this encounter
--- OUTSIDE RECORDS SUMMARY | 2024-09-03 20:41 | XMS_ITS | Encounter Summary ---
Author Organization [facility] Address [facility] access hospital[facility] [place] [address] [place] [address] Care Team Providers Care Shafting Worker Name Role Phone Piyush Pandey MD Unavailable Unavailabl e Megan Infante MD Primary Care Provider [phone] Davis [address]N [address] JUSTICE-C Unavailable Linda Block MD Unavailable [phone] Jeff Grace MD Unavailable Zaki Ortiz MD Unavailable [phone] Encounter Details Date Type Department Care Team (Late st Contact Info) Description 01/20/2022 Orders Only [facility] [address] [place] [address], [facility] [address] [place] [address] Jacinto Vega MD [address] [place], [place] [id number] Social History Tobacco Use Types Packs/Day Years [...] Description 09/25/2024 2:00 PM DELIVERY DRIVER Appointment [facility] [address] [place] [address] Zayra Powell, [employer] SUPERVISOR [address] [place] [address] 10/16/2024 3:30 PM DELIVERY DRIVER Office Visit [facility] [address] [phone] Brit Gonzáles MD [address] [place] [address] documented as of this encounter Results * [...] documented as of this encounter Care Teams Shafting Worker Relationship Specialty Start Date End Date Megan Infante MD [address] [place] [phone] PCP - General FAMILY PRACTICE 04/06/16 Piyush Pandey MD [place] [employer] CARDIOVASCULAR DISEASE 04/06/16 12/28/23 Sharmila Davis APRN, TRIAL COURT JUSTICE-C [address] [facility] [address] [place] [phone] NURSE PRACTITIONER 01/04/17 04/03/24 Linda Block MD [address] [facility] [address] [phone] [place] [employer] CLINICAL CARDIAC ELECTROPHYSIOLOGY 02/08/17 04/12/23 Jeff Grace MD [address] [facility] [address] [phone] Consulting Physician INTERNAL MEDICINE 02/20/19 3 Zaki Ortiz MD [address] [facility] [address] [phone] Consulting Physician PULMONARY DISEASE 07/12/19 documented as of this encounter
--- OUTSIDE RECORDS SUMMARY | 2024-09-03 20:41 | XMS_ITS | Encounter Summary ---
Author Organization [facility] Address [facility]6 [facility] [place] [address] [place] [address] Care Team Providers Care Medical Dosimetrist Name Role Phone Piyush Pandey MD Unavailable Unavailabl e Megan Infante MD Primary Care Provider [phone] Barney Chase APRN, TELEPHONE DIRECTORY DISTRIBUTOR DRIVER-C Unavailable [phone] Linda Block MD Unavailable [phone] Jeff Grace MD Unavailable Zaki Ortiz MD Unavailable [phone] Reason for Referral * Procedure (Routine) - Closed Specialty Diagnoses / Procedures Referred By Contac t Referred To Contact Diagnoses Elevated troponin NSTEMI (non-ST elevated myocardial infarction) ([facility]/HCC [facility]) Procedures Stress Test only, exercise [facility] [address] [place] [address] Phone: tel: Referral ID Status Reason Start Date Expiration Date Visits Re quested Visits Authorized [id number] Closed 02/02/2022 03/04/2023 1 1 * Imaging (Urgent) - Closed Specialty Diagnoses / Procedures Referred By Contac t Referred To Contact RADIOLOGY Procedures NM PHARM NUC STRESS TEST 1DAY NM PHARM NUC STRESS TEST 1DAY Barney Chase APRN, TELEPHONE DIRECTORY DISTRIBUTOR DRIVER-C [address] [facility] [address] [place] [address] Phone: tel: fax: Referral ID Status Reason Start Date Expiration Date Visits Re quested Visits Authorized [id number] Closed 02/01/2022 03/03/2023 1 1 * Imaging (Urgent) - Closed Specialty Diagnoses / Procedures Referred By Contac t Referred To Contact RADIOLOGY Procedures USE ECHOCARDIOGRAM W CON USE ECHOCARDIOGRAM USE ECHOCARDIOGRAM Segundo Montana MD Phone: tel: fax: Referral ID Status Reason Start Date Expiration Date Visits Re quested Visits Authorized [id number] Closed 02/01/2022 03/03/2023 1 1 * (Routine) - Canceled Specialty Diagnoses / Procedures Referred By Yung t Referred To Contact Procedures OT Eval and Treat Segundo Montana MD Phone: tel: fax: Referral ID Status Reason Start Date Expiration Date V isits Requested Visits Authorized [id number] Canceled 02/01/2022 03/03/2023 1 1 * (Routine) - Canceled Specialty Diagnoses / Procedures Referred By Yung t Referred To Contact Procedures PT Eval and Treat Segundo Montana MD Phone: tel: fax: Referral ID Status Reason Start Date Expiration Date V isits Requested Visits Authorized [id number] Canceled 02/01/2022 03/03/2023 1 1 Reason for Visit * Auth/Cert Specialty Diagnoses / Procedures Referred By Yung t Referred To Contact Diagnoses NSTEMI (non-ST elevated myocardial infarction) ([facility]/HCC [facility]) NSTEMI Procedures NONE Referral ID Status Reason Start Date Expiration Date Visits Re quested Visits Authorized [id number] 1 1 Encounter Details Date Type Department Care Team (Latest Contact Info) Description 02/01/2022 5:11 AM CDT - 02/06/2022 1:57 PM CDT Hospital Encounter [facility] [address] [place] [address] Segundo Montana MD [address] [place] [address] Saroj Rodriges MD [address] [place] [address] Kate Boston MD [address] [place], [place] [id number] Discharge Disposition: [facility]sp Facility Social History Tobacco Use Types Packs/Day [...] from the original note were not included. [facility] Hospitalist Discharge Summary Patient ID: Obie Sims [id number] 66-year-old 1955 Admit date: 02/01/2022 Discharge date: [...] mg by mouth as needed for Constipation. blvvqljigwq-ibbgezlkfujv-qgyahaqgbo 100-62.5-25 MCG/INH Aepb Inhale into the lungs [...] 3 more days of PO Doxycycline at [place]. NSTEMI CAD?? --[facility] in Aug 2020 w/??proximal [...] ?? Diabetes: Resume home anti-hyperglycemic regimen at [place]. Significant Diagnostic Studies: Lab Results Component Value [...] MYOCARDIAL PERFUSION SCAN Pat.Name: OBIE SIMS Pat.ID: [id number] St.Date: 02/02/2022 Refer.MD: ARMAND COSBY Exam Time: 7:15:00 AM Study Type:NC Ht Muscle Image SPECT Multi Nuclear Height: 66in Weight: 214.5lb BSA: 2.06 m2 Age: 12 1955,66Y Sex: MALE Sonogrphr: PARIS Fox Pat. Stat.:Inpatient Room: [facility] Reason for Study:Chest pain/ anginal equivalent, ECGs [...] 02/01/2022 Echocardiography Report Pat.Name: OBIE SIMS Pat.ID: [id number] St.Date: 02/01/2022 Refer.MD: [id number] JADIEL ALBERTS NABIH EWDPROV EWDPROV Exam Time: 2:01:00 PM Study Type:ECHO W/CONTRAST COMPLETE Height: 66.14in Weight: 215.6lb BSA: 2.07 m2 Age: 12 1955,66Y Sex: MALE BP: 124/81 Sonogrphr: Keegan Carlin [facility] Pat. Stat.:Inpatient Room: [facility] CPT - 4: C8929 Reason for Study:NSTEMI [...] Mass 2D Value 203 g LV Mass Jdzbt8V Value 98.1 g/m2 Right Ventricle Right Ventricle [...] 02/01/2022 05:26 PM Armand Cosby M.D. Disposition: [facility] Patient Instructions: Activity: As tolerated Diet: low salt, carb controlled. MEGAN INFANTE MD Signed: KATE BOSTON MD 02/06/2022 12:54 PM Time spent in discharging patient ~ 35 mins documented in this encounter Discharge Instructions * Attachments The following attachments cannot be sent through Care Everywhere. * Doxycycline, ADULT (Nigerian) documented in this encounter Medications at Time [...] nightly as needed. 20 tablet 02/06/2022 3 doxycycline hyclate 100 MG tablet Take 1 [...] per Dr. Kate CLAYTON, PharmD Phone number: [phone] 02/06/2022 12:48 PM * Ivett Harding RN - 02/06/2022 12:47 PM CDT Called report to Yvonne at [facility] Swing Bed ([phone]). All questions/concerns addressed. Faxed all discharge orders to [phone]. Waiting for patient's transportation at this time, will continue to monitor. * Geraldine Murphy RN - 02/06/2022 11:05 AM CDT Spoke with patient at bedside. Made him aware that [facility] has accepted him to their swing bed program. He states that he will call his family and someone will come get him and take him to the swing bed. Placement: [facility] Swing Bed RN/RN report: [phone] Fax orders to: [phone] Geraldine Murphy RN, CM Cardiac Stretching Machine Operator/Division Plant Engineer ext [phone] Email: [email or web address] * Jordyn JAKE Mcbride - 02/06/2022 8:44 AM CDT OT Treatment Discharge Recommendation: Swing bed unit Activity Recommendation for industrial court magistrate: up with 1, gait belt, 2ww 02/06/22 [...] 5:04 PM CDT Spoke with admissions at [facility]. States that he looks like a good candidate. Will send them more updates in the morning. Geraldine Murphy RN, CM Cardiac Stretching Machine Operator/Division Plant Engineer ext [phone] Email: [email or web address] * Kate Boston MD - 02/05/2022 3:18 [...] BOSTON MD 02/05/2022 * Yanni Presley, AaliyahD, [facility] - 02/05/2022 11:25 AM CDT Warfarin - [...] to dose per Dr. Kate Presley, PharmD, [facility] Phone number: [phone] 02/05/2022 11:25 AM * Micaela Summers Ugarte, CORRECTIONS COUNSELOR - 02/05/2022 9:00 AM CDT PT Treatment Discharge Recommendation: Swing bed unit DME equipment recommendation: Activity Recommendation for industrial court magistrate: up with assist of 1 and use [...] per Dr. Kate HARE, PharmD Phone number: [phone] 02/04/2022 2:45 PM * Kate Boston MD [...] Recommendation: Swing bed unit Activity Recommendation for industrial court magistrate: Up with 1, gait belt and 2ww. [...] house with a basement. Pt has 2-3 YAGN with handrail. Pt reports he lives in [...] documenting in the chart. * Gita Walker, CORRECTIONS COUNSELOR - 02/04/2022 8:59 AM CDT PT Treatment Discharge Recommendation: Swing bed unit Activity Recommendation for industrial court magistrate: ambulate pt to restroom using gait belt [...] yelling out in pain/fear during bed mobility. Asset Protection Manager used digital sales representative pad to assist with bed mobility. TRANSFERS [...] to increase step length and foot clearance. Asset Protection Manager followed behind pt with chair initially for safety. Feel pt is generally unsteady. Balance Sitting - Static SBA Sitting - Dynamic CGA;SBA Standing - Static CGA;Support of both upper extremities Standing - Dynamic CGA;Support of both upper extremities (Heavy) Exercises Sitting LE Exercise Pt performed BLE sitting therex x 5- 10 reps to improve blood flow and activitytolerance: LAQs, ankle pumps, marching. Asset Protection Manager encouraged pt to perform therex throughout the [...] 4:50 PM CDT Patient's daughter works at [facility] and has asked that a referral be sent to [facility]. Referral sent and will follow up tomorrow. Geraldine Murphy RN, CM Cardiac Stretching Machine Operator/Division Plant Engineer ext [phone] Email: [email or web address] * Kate Boston MD - 02/03/2022 2:15 [...] BID, Segundo Montana MD, 6.25 mg at 02/03/22954 ??? [...] Assistance No Behavior Oriented;Cooperative Communication Talks;Understands speaking;Understands Nigerian Socioeconomic Needs Caregiver Needed No At Risk [...] to: Home Geraldine Murphy RN, CM Cardiac Stretching Machine Operator/Division Plant Engineer ext [phone] Email: [email or web address] * Piyush Pandey MD - 02/03/2022 8:15 [...] Segundo Montana MD, 300 mg at 02/01/22 1959 ??? amLODIPine (NORVASC) tablet 2.5 mg, 2.5 [...] 1 tablet, 1 tablet, Oral, Q6H PRN, Segunod Montana MD, 1 tablet at 02/02/22 1141 [...] Doxy and follow Cx. ?? NSTEMI CAD --[facility] in Aug 2020 w/ proximal LAD 60% [...] Recommendation: Swing bed unit Activity Recommendation for industrial court magistrate: Up with assist x 1-2 with Cris [...] to perform sit to/from standing with Modified [place] using wheeled walker toimprove independence. Pt. will be able to ambulate 100 feet with Modified [place] using wheeled walker to help improve strength and functional independence. Pt. will be able to maintain static sitting balance for 10-20 minutes with Independent to improve independence. Pt. will be able to maintain dynamic sitting balance on soft surface with Independent to improve functional mobility. Pt. will be able to maintain static standing balance 5-10 minutes with Modified [place] using wheeled walker to improve independence. Pt. will be able to maintain dynamic standing balance during side-stepping L/R and marching with Modified [place] using wheeled walker to improve functional mobility. * Tasneem [facility], OT - 02/02/2022 11:50 AM CDTSummary: OT EVAL OT Initial Evaluation Discharge Recommendation: Swing bed unit Activity Recommendation for industrial court magistrate: UP with Cris Newton 02/02/22 1138 Therapy [...] education Pt reports independence as functional status CORRECTIONS COUNSELOR. Pt presents with weakness, RLE pain, decreased [...] AE PRN including clothing retrieval with Modified [place] in order to increase independence with ADLs. Pt will brush teeth, wash face, brush hair, and wash hands standing at sink with 2WW with Modified [place] in order to increase independence with ADLs. Pt will perform all toileting tasks including clothing management using 2WW with Modified [place] in order to increase independence with functional transfers and ADLs. Pt will bathe whole body and wash hair seated on shower chair with Modified [place] in order to increase independence with ADLs. Pt will perform supine to sit and sit to supine bed mobility with [place] in order to increaseindependence with ADLs, transitional [...] use of techniques during functional activities with [place] in order to increase overall activity tolerance [...] Montana MD - 02/01/2022 5:27 AM CDT [facility] Hospitalist Admission H&P Attending Provider: Segundo Montana MD PCP: MGEAN INFANTE MD Obie Sims is an 66-year-old male. Reason for Admission: NSTEMI (non-ST elevated myocardial infarction) ([facility]/HCC) HPI: Obie Sims is a 66-year-old male [...] Dueto elevated troponin patient was transferred to [facility] for further evaluation. Currently, pt complains of [...] (Incomplete) performed by Kilo Navarro MD at [facility] OR ??? COLONOSCOPY N/A 01/27/2022 COLONOSCOPY WITH COLD SNARE POLYPECTOMY performed by Kilo Navarro MD at [facility] OR ??? HIP ARTHROPLASTY Left ??? KNEE [...] enoxaparin 40 MG/0.4ML Solution Prefilled Syringe ??? Mnvwwshbqrf-Fasgkatah-Nyqenq 100-62.5-25 MCG/INH AEROSOL POWDER, BREATH ACTIVATED Inhale [...] Active Problems: NSTEMI (non-ST elevated myocardial infarction) ([facility]) [facility](R): MYOCARDIAL INFARCTION Blood pressure (!) 149/87, [...] Component Value Units Date/Time CULTURE, BACTERIA, BLOOD [[id number]] Order Status: Sent Lab Status: No result Specimen: BLOOD CULTURE, BACTERIA, BLOOD [[id number]] Order Status: Sent Lab Status: No result Specimen: BLOOD CULTURE URINE [[id number]] Order Status: No result Lab Status: No result Specimen: URINE, CLEAN CATCH H PYLORI UREASE [[id number]] Collected: 01/27/22920 Order Status: Completed Lab Status: Final result Updated: 01/28/22 1018 Specimen: TISSUE from GASTRIC BIOPSY Spec. Description GASTRIC BIOPSY Special Requests: NO SPECIAL REQUEST DIRECT EXAM PRESUMPTIVE NEGATIVE FOR H. PYLORI PRE-SURGICAL/PRE-PROCEDURE CORONAVIRUS (COVID 19) [[id number]] Collected: 01/24/22911 Order Status: Completed Lab Status: [...] NO PATIENT IN ICU NO RESIDENT OF [facility] NO Imaging: XR ANKLE RT M3V Result [...] MONTANA MD 02/01/2022 Thank you for choosing [facility] hospitalist service. Please call us if any questions or concerns. documented in this encounter Consult Notes * Barney Chase APRN, FLOR-C - 02/01/2022 8:33 AM CDTAssociated Order(s): IP CONSULT TO CARDIOLOGY Images from the original note were not included. Cardiology Consult Note ID: Obie Sims is a 66-year-old male : 1955 PCP: MEGAN INFANTE MD Primary Relay Associate: Dr. Pandey, Dr. Cosby covering CC: Fall, [...] being discovered. He was then taken to [facility]. His imaging studies did not reveal any significant fractures. His chest x-ray revealed cardiomegaly with pulmonary vascular congestion and central infiltrates. Abnormal lab results included WBC 17.8, sodium 126, BUN 49, creatinine 1.84, total CK 565, ESR 37, lactic acid 2.3, proBNP 2278, and high-sensitivity troponins of 125.4 and 208.8. He was transferred to [facility] due to his elevated troponin, and cardiology [...] block. ASSESSMENT: NSTEMI (non-ST elevated myocardial infarction) ([facility]) Elevated troponin Elevated brain natriuretic [...] (Incomplete) performed by Kilo Navarro MD at [facility] OR ??? COLONOSCOPY N/A 01/27/2022 COLONOSCOPY WITH COLD SNARE POLYPECTOMY performed by Kilo Navarro MD at [facility] OR ??? HIP ARTHROPLASTY Left ??? KNEE [...] enoxaparin 40 MG/0.4ML Solution Prefilled Syringe ??? Zyxbhosmeel-Ctbnligcf-Klhbhn 100-62.5-25 MCG/INH AEROSOL POWDER, BREATH ACTIVATED Inhale [...] ??? carvedilol 6.25 mg Oral BID ??? gvofagjshvd-mmqcstxqsocn-yuvbzbmwrc 1 puff Inhalation Daily ??? gabapentin 200 [...] By: Misael Diaz MD, 01/15/2022 3:09 PM XR CHEST PORTABLE [...] encounter of 02/01/22 ECG 12 lead Narrative [facility] [address] [place] [address] Test Date: 2022-02-01 Pat Name: OBIE SIMS Department: 1 Room: [facility] Gender: Male Coin Wrapping Machine Operator: Prabha : 1955 Requested By: SEGUNDO MONTANA Order Number: [id number] Reading MD: Armand Cosby Measurements Intervals [place] Rate: 80 P: KS: 0 QRS: -31 QRSD: 150 T: 137 QT: 406 QTc: 469 Interpretive Statements ATRIAL FIBRILLATION LEFT AXIS DEVIATION LEFT BUNDLE BRANCH BLOCK Signed BARNEY CHASE APRN, TELEPHONE DIRECTORY DISTRIBUTOR DRIVER-C 02/01/[address] Cosby Cosigned by Armand Cosby MD at 02/01/2022 12:18 PM CDT Associated attestation - Armand Cosby MD - 02/01/2022 12:18 PM CDT I, Armand Cosby MD, personally performed the history, physical examination and medical decisionmaking and provided more than half of the total time dedicated to treatment of this patient. Note as scribed by my TELEPHONE DIRECTORY DISTRIBUTOR DRIVER, Barney Chase. Abnormal troponin in this patient [...] st Contact Info) Description 09/25/2024 2:00 PM AIR TOOL OPERATOR Appointment [facility] [address] [place] [address] Zayra Powell, SLOT ROUTER [address] [address] 10/16/2024 3:30 PM AIR TOOL OPERATOR Office Visit [facility] [address] [place] [address] Brit Gonzáles MD [address] [place] [address] documented as of this encounter Procedures Procedure [...] Elevated troponin NSTEMI (non-ST elevated myocardial infarction) ([facility]/HCC [facility]) POCT GLUCOSE - VALLECILLO DOCKED DEVICE Routine [...] 70 - 109 02/06/2022 12:33 PM CDT [facility] 02/06/2022 12:3 2 PM CDT us Kate Boston MD POCT ORDERABLES - DEVICE Final R esult Performing Organization Address [facility] Co de Phone Number [facility] [address] [place] [address], [place] [phone] * (ABNORMAL) PROTIME/INR, VENOUS - Daily (02/06/2022 8:07 AM CDT) PROTIME 12.7(H) 9.4 - 12.5 SEC 02/06/2022 9:26 AM CDT [facility] INR 1.1 0.8 - 1.1 02/06/2022 9:26 AM CDT [facility] 02/06/2022 8:07 AM CDT us Kate Boston MD LABORATORY Final Result Performing Organization Address [facility] de Phone Number [facility] [address] [place] [address], [place] [phone] * (ABNORMAL) POCT glucose (02/06/2022 6:01 AM CDT) GLUCOSE POC 212(H) 70 - 109 02/06/2022 6:09 AM CDT [facility] 02/06/2022 6:01 AM CDT us Kate Boston MD POCT ORDERABLES - DEVICE Final R esult Performing Organization Address [facility] Co de Phone Number [facility] [address] [place] [address], [place] [phone] * (ABNORMAL) POCT glucose (02/05/2022 8:57 PM CDT) GLUCOSE POC 236(H) 70 - 109 02/05/2022 9:02 PM CDT [facility] 02/05/2022 8:57 PM CDT us Kate Boston MD POCT ORDERABLES - DEVICE Final R esult Performing Organization Address City/[facility]/ZIP Co de Phone Number [facility] [address] [place] [address], [place] [phone] * (ABNORMAL) POCT glucose (02/05/2022 4:35 PM CDT) GLUCOSE POC 298(H) 70 - 109 02/05/2022 4:44 PM CDT [facility] 02/05/2022 4:35 PM CDT us Kate Boston MD POCT ORDERABLES - DEVICE Final R esult Performing Organization Address [facility] Co de Phone Number [facility] [address] [place] [address], [place] [phone] * (ABNORMAL) POCT glucose (02/05/2022 11:43 AM CDT) GLUCOSE POC 229(H) 70 - 109 02/05/2022 11:57 AM CDT [facility] 02/05/2022 11:4 3 AM CDT us Kate Boston MD POCT ORDERABLES - DEVICE Final R esult Performing Organization Address City/[facility] Co de Phone Number [facility] [address] [place] [address], [place] [phone] * (ABNORMAL) POCT glucose (02/05/2022 6:22 AM CDT) GLUCOSE POC 203(H) 70 - 109 02/05/2022 6:24 AM CDT [facility] 02/05/2022 6:22 AM CDT us Kate Boston MD POCT ORDERABLES - DEVICE Final R esult Performing Organization Address [facility] de Phone Number [facility] [address] [place] [address], [place] [phone] * (ABNORMAL) PROTIME/INR, VENOUS - Daily (02/05/2022 6:08 AM CDT) PROTIME 12.6(H) 9.4 - 12.5 SEC 02/05/2022 6:51 AM CDT [facility] INR 1.1 0.8 - 1.1 02/05/2022 6:51 AM CDT [facility] 02/05/2022 6:08 AM CDT us Kate Boston MD LABORATORY Final Result Performing Organization Address [facility] Phone Number [facility] [address] [place] [address], [place] [phone] * (ABNORMAL) POCT glucose (02/04/2022 10:04 PM CDT) GLUCOSE POC 235(H) 70 - 109 02/04/2022 10:39 PM CDT [facility] 02/04/2022 10:0 4 PM CDT us Kate Boston MD POCT ORDERABLES - DEVICE Final R esult Performing Organization Address [facility] de Phone Number [facility] [address] [place] [address], [place] [phone] * (ABNORMAL) POCT glucose (02/04/2022 5:48 PM CDT) GLUCOSE POC 206(H) 70 - 109 02/04/2022 6:06 PM CDT [facility] 02/04/2022 5:48 PM CDT Kate Boston MD POCT ORDERABLES - DEVICE Final R esult Performing Organization Address [facility] de Phone Number [facility] [address] [place] [address], [phone] * (ABNORMAL) PROTIME/INR, VENOUS (02/04/2022 3:11 PM CDT) Pathologist [facility] PROTIME 13.2(H) 9.4 - 12.5 SEC 02/04/2022 3:45 PM CDT [facility] INR 1.2(H) 0.8 - 1.1 02/04/2022 3:45 PM CDT [facility] 02/04/2022 3:11 PM CDT us Kate Boston MD LABORATORY Final Result Performing Organization Address [facility] de Phone Number [facility] [address] [place] [address], [phone] * (ABNORMAL) HEPATIC FUNCTION PANEL (02/04/2022 3:11 PM CDT) BILIRUBIN TOTAL S/P/B 0.9 0.2 - 1.0 MG/DL 02/04/2022 4:38 PM CDT [facility] BILIRUBIN DIRECT S/P/B 0.3(H) 0.0 - 0.2 MG/DL 02/04/2022 4:38 PM CDT [facility] ALKALINE PHOSPHATASE S/P/B 108 45 - 115 U/L 02/04/2022 4:38 PM CDT [facility] AST 34 15 - 37 U/L 02/04/2022 4:38 PM CDT [facility] ALT 38 16 - 61 U/L 02/04/2022 4:38 PM CDT [facility] TOTAL PROTEIN S/P/B 7.2 6.4 - 8.2 G/DL 02/04/2022 4:38 PM CDT [facility] ALBUMIN S/P/B 3.2(L) 3.4 - 5.0 G/DL 02/04/2022 4:38 PM CDT [facility] 02/04/2022 3:11 PM CDT us Kate Boston MD LABORATORY Final Result Performing Organization Address [facility] de Phone Number [facility] [address] [place] [address], [phone] * (ABNORMAL) POCT glucose (02/04/2022 11:06 AM CDT) GLUCOSE POC 254(H) 70 - 109 02/04/2022 11:25 AM CDT [facility] 02/04/2022 11:0 6 AM CDT us Kate Boston MD POCT ORDERABLES - DEVICE Final R esult Performing Organization Address [facility] Co de Phone Number [facility] [address] [place] [address], [phone] * (ABNORMAL) POCT glucose (02/04/2022 6:44 AM CDT) GLUCOSE POC 182(H) 70 - 109 02/04/2022 6:50 AM CDT [facility] 02/04/2022 6:44 AM CDT Kate Boston MD POCT ORDERABLES - DEVICE Final R esult [facility] [address] [place] [address], [place] [phone] * XR CHEST PORTABLE (02/04/2022 5:46 AM [...] - 10.8 x10'3/uL 02/04/2022 5:32 AM CDT [facility] RBC 3.59(L) 4.50 - 6.10 x10'6/uL 02/04/2022 5:32 AM CDT [facility] HGB 10.1(L) 13.0 - 18.0 G/DL 02/04/2022 5:32 AM CDT [facility] HCT 31.9(L) 37.0 - 52.0 % 02/04/2022 5:32 AM CDT [facility] MCV 88.9 78.0 - 100.0 FL 02/04/2022 5:32 AM CDT [facility] MCH 28.1 27.0 - 31.0 PG 02/04/2022 5:32 AM CDT [facility] MCHC 31.7(L) 33.0 - 36.0 G/DL 02/04/2022 5:32 AM CDT [facility] RDW 15.3(H) 11.5 - 14.5 % 02/04/2022 5:32 AM CDT [facility] PLT 143(L) 150 - 350 x10'3/uL 02/04/2022 5:32 AM CDT [facility] MPV 11.2(H) 7.4 - 10.4 FL 02/04/2022 5:32 AM CDT [facility] ABS. NEUTROPHILS 6.27 1.60 - 8.30 x10'3/uL 02/04/2022 5:32 AM CDT [facility] ABS. LYMPHOCYTES 1.95 0.80 - 4.70 x10'3/uL 02/04/2022 5:32 AM CDT [facility] ABS. MONOCYTES 1.15 0.00 - 1.50 x10'3/uL 02/04/2022 5:32 AM CDT [facility] ABS. EOSINOPHILS 0.14 0.00 - 0.40 x10'3/uL 02/04/2022 5:32 AM CDT [facility] ABS. BASOPHILS 0.03 0.00 - 0.20 x10'3/uL 02/04/2022 5:32 AM CDT [facility] ABS. IMMATURE GRANULOCYTES 0.05(H) 0.00 - 0.03 x10'3/uL 02/04/2022 5:32 AM CDT [facility] ABS. NUCLEATED RBC'S 0.00 0.0 x10'3/uL 02/04/2022 5:32 AM CDT [facility] 02/04/2022 4:53 AM CDT Kate Boston MD LABORATORY Final Result Performing Organization Address City/[facility]/ZIP Co de Phone Number [facility] [address] [place] [address], [id number] * MAGNESIUM (02/04/2022 4:53 AM CDT) MAGNESIUM 1.8 1.6 - 2.6 MG/DL 02/04/2022 5:50 AM CDT [facility] 02/04/2022 4:53 AM CDT us Kate Boston MD LABORATORY Final Result Performing Organization Address City/[facility]/ZIP Co de Phone Number [facility] [address] [place] [address], [phone] * (ABNORMAL) BASIC METABOLIC PANEL (02/04/2022 4:53 AM CDT) SODIUM S/P/B 136 136 - 145 MMOL/L 02/04/2022 5:50 AM CDT [facility] POTASSIUM S/P/B 3.8 3.5 - 5.1 MMOL/L 02/04/2022 5:50 AM CDT [facility] CHLORIDE S/P/B 99 98 - 107 MMOL/L 02/04/2022 5:50 AM CDT [facility] CO2 31.3 21.0 - 32.0 MMOL/L 02/04/2022 5:50 AM CDT [facility] GLUCOSE 187(H) 74 - 106 MG/DL 02/04/2022 5:50 AM CDT [facility] BUN 30(H) 7 - 18 MG/DL 02/04/2022 5:50 AM CDT [facility] CREATININE S/P/B 1.28 0.70 - 1.30 MG/DL 02/04/2022 5:50 AM CDT [facility] CALCIUM S/P/B 9.1 8.5 - 10.1 MG/DL 02/04/2022 5:50 AM CDT [facility] ANION GAP 5.7 5.0 - 15.0 MMOL/L 02/04/2022 5:50 AM T [facility] OSMOLALITY (CALC) 293 MOSM/KG 022 5:50 AM CDT [facility] Comment:REFERENCE RANGE NOT ESTABLISHED GFR ESTIMATE 61(L) >90 ML/MIN/1. 73 M2 02/04/2022 5:50 AM CDT [facility] GFR NOTES GFR REFERENCE S: 02/04/2022 5:50 AM T [facility] Comment: THE ESTIMATED GFR IS [...] MD LABORATORY Final Result Performing Organization Address [facility] Co de Phone Number [facility] [address] [place] [address], [place] [phone] * (ABNORMAL) POCT glucose (02/03/2022 9:31 PM CDT) GLUCOSE POC 274(H) 70 - 109 02/03/2022 9:46 PM CDT [facility] 02/03/2022 9:31 PM CDT us Kate Boston MD POCT ORDERABLES - DEVICE Final R esult Performing Organization Address [facility] de Phone Number [facility] [address] [place] [address], [place] [phone] * (ABNORMAL) POCT glucose (02/03/2022 5:02 PM CDT) GLUCOSE POC 188(H) 70 - 109 02/03/2022 5:16 PM CDT [facility] 02/03/2022 5:02 PM CDT us Kate Boston MD POCT ORDERABLES - DEVICE Final R esult Performing Organization Address [facility] Co de Phone Number [facility] [address] [place] [address], [place] [phone] * (ABNORMAL) POCT glucose (02/03/2022 10:50 AM CDT) GLUCOSE POC 227(H) 70 - 109 02/03/2022 11:20 AM CDT [facility] 02/03/2022 10:5 0 AM CDT us Kate Boston MD POCT ORDERABLES - DEVICE Final R esult Performing Organization Address [facility] Co de Phone Number [facility] [address] [place] [address], [place] [phone] * (ABNORMAL) POCT glucose (02/03/2022 6:07 AM CDT) GLUCOSE POC 207(H) 70 - 109 02/03/2022 6:09 AM CDT [facility] 02/03/2022 6:07 AM CDT us Kate Boston MD POCT ORDERABLES - DEVICE Final R esult Performing Organization Address [facility] de Phone Number [facility] [address] [place] [address], [place] [phone] * (ABNORMAL) CBC, AUTO, NO DIFF (02/03/2022 4:35 AM CDT) WBC 10.7 4.0 - 10.8 x10'3/uL 02/03/2022 4:57 AM CDT [facility] RBC 3.67(L) 4.50 - 6.10 x10'6/uL 02/03/2022 4:57 AM CDT [facility] HGB 10.4(L) 13.0 - 18.0 G/DL 02/03/2022 4:57 AM CDT [facility] HCT 32.0(L) 37.0 - 52.0 % 02/03/2022 4:57 AM CDT [facility] MCV 87.2 78.0 - 100.0 FL 02/03/2022 4:57 AM CDT [facility] MCH 28.3 27.0 - 31.0 PG 02/03/2022 4:57 AM CDT [facility] MCHC 32.5(L) 33.0 - 36.0 G/DL 02/03/2022 4:57 AM CDT [facility] RDW 15.2(H) 11.5 - 14.5 % 02/03/2022 4:57 AM CDT [facility] PLT PLATELET CLUMPS PRESENT. ESTIMATE FROM SLIDE APPEARS TO BE WITHIN NORMAL RANGE 150 - 350 x10'3/uL 02/03/2022 5:24 AM CDT [facility] Comment:REORDER PLATELET COU NT IF ACTUAL VALUE IS CLINICALLY SIGNIFICANT MPV UNABLE TO PERFORM TEST 7.4 - 10.4 FL 02/03/2022 5:24 AM CDT [facility] 02/03/2022 4:35 AM CDT us Kate Boston MD LABORATORY Final Result [facility] [address] [place] [address], [phone] * (ABNORMAL) BASIC METABOLIC PANEL (02/03/2022 4:35 AM CDT) SODIUM S/P/B 136 136 - 145 MMOL/L 02/03/2022 5:06 AM CDT [facility] POTASSIUM S/P/B 3.3(L) 3.5 - 5.1 MMOL/L 02/03/2022 5:06 AM CDT [facility] CHLORIDE S/P/B 99 98 - 107 MMOL/L 02/03/2022 5:06 AM CDT [facility] CO2 31.0 21.0 - 32.0 MMOL/L 02/03/2022 5:06 AM CDT [facility] GLUCOSE 193(H) 74 - 106 MG/DL 02/03/2022 5:06 AM CDT [facility] BUN 29(H) 7 - 18 MG/DL 02/03/2022 5:06 AM CDT [facility] CREATININE S/P/B 1.34(H) 0.70 - 1.30 MG/DL 02/03/2022 5:06 AM CDT [facility] CALCIUM S/P/B 9.2 8.5 - 10.1 MG/DL 02/03/2022 5:06 AM CDT [facility] ANION GAP 6.0 5.0 - 15.0 MMOL/L 02/03/2022 5:06 AM CDT [facility] OSMOLALITY (CALC) 293 MOSM/KG 022 5:06 AM T [facility] Comment:REFERENCE RANGE NOT ESTABLISHED GFR ESTIMATE 58(L) >90 ML/MIN/1. 73 M2 02/03/2022 5:06 AM CDT [facility] GFR NOTES GFR REFERENCE S: 02/03/2022 5:06 AM T [facility] Comment: THE ESTIMATED GFR IS [...] us Kate Boston MD LABORATORY Final Result [facility] [address] [place], [place] [address] [phone] * (ABNORMAL) POCT glucose (02/02/2022 9:44 PM CDT) GLUCOSE POC 237(H) 70 - 109 02/02/2022 9:46 PM CDT [facility] 02/02/2022 9:44 PM CDT Kate Boston MD POCT ORDERABLES - DEVICE Final R esult Performing Organization Address [facility]/State/[facility] Co de Phone Number [facility] [address] [place] [address], [phone] * NM PHARM NUC STRESS TEST 1DAY (02/02/2022 2:19 PM CDT) Anatomical Region Laterality Modality Cardiac Nuclear Medicine 02/02/2022 7:15 AM CDT Narrative 02/02/2022 4:34 PM CDT ?MYOCARDIAL PERFUSION SCAN Pat.Name: ??OBIE SIMS ?Pat.ID: ?[id number] ? St.Date: ?? 02/02/2022 ? Refer.: ??ARMAND COSBY ? Exam Time: 7:15:00 AM ? Study Type:NC Ht Muscle Image SPECT Multi Nuclear Height: ?66in ?Weight: ?214.5lb ? BSA: ? 2.06 m2 ?Age: ??1955,66Y ? Sex: ? MALE ?Sonogrphr: Megan Singleton, [employer] ? Pat. Stat.:Inpatient ? Room: ?510 ? [...] 04:34 PM Armand Cosby M.D. Procedure Note Armand Cosby MD - 02/02/2022 MYOCARDIAL PERFUSION SCAN Pat.Name: BETHANY OBIE Good Pat.ID: [id number] .Date: 02/02/2022 Refer.MD: ARMAND COSBY Exam Time: 7:15:00 AM Study Type:NC Ht Muscle Image SPECT Multi Nuclear Height: 66in Weight: 214.5lb BSA: 2.06 m2 Age: 11 1955,66Y Sex: MALE Sonogrphr: Megan Singleton [facility] Pat. Stat.:Inpatient Room: 510 Reason for Study:Chest [...] PM Armand Cosby M.D. Armand Cosby MD [facility] Final Result * (ABNORMAL) POCT glucose (02/02/2022 11:39 AM CDT) GLUCOSE POC 195(H) 70 - 109 02/02/2022 11:57 AM CDT [facility] 02/02/2022 11:3 9 AM CDT us Kate Boston MD POCT ORDERABLES - DEVICE Final R esult Performing Organization Address [facility] de Phone Number [facility] [address] [place] [address], [place] [phone] * (ABNORMAL) TROPONIN, QUANT (02/02/2022 10:23 AM CDT) TROPONIN I HIGH SENSITIVITY 104(H) 0 - 78 ng/L 02/02/2022 11:48 AM CDT [facility] 02/02/2022 10:2 3 AM CDT us Kate Boston MD LABORATORY Final Result Performing Organization Address [facility] de Phone Number [facility] [address] [place] [address], [place] [phone] * (ABNORMAL) CK (CPK) (02/02/2022 10:23 AM CDT) CPK 806(H) 39 - 308 U/L 02/02/2022 11:48 AM CDT [facility] 02/02/2022 10:2 3 AM CDT us Kate Boston MD LABORATORY Final Result Performing Organization Address [facility] de Phone Number [facility] [address] [place] [address], [place] [phone] * (ABNORMAL) BASIC METABOLIC PANEL (02/02/2022 10:23 AM CDT) SODIUM S/P/B 135(L) 136 - 145 MMOL/L 02/02/2022 11:48 AM CDT [facility] POTASSIUM S/P/B 3.5 3.5 - 5.1 MMOL/L 02/02/2022 11:48 AM CDT [facility] CHLORIDE S/P/B 98 98 - 107 MMOL/L 02/02/2022 11:48 AM T [facility] CO2 28.2 21.0 - 32.0 MMOL/L 02/02/2022 11:48 AM T [facility] GLUCOSE 182(H) 74 - 106 MG/DL 02/02/2022 11:48 AM T [facility] BUN 33(H) 7 - 18 MG/DL 02/02/2022 11:48 AM T [facility] CREATININE S/P/B 1.46(H) 0.70 - 1.30 MG/DL 02/02/2022 11:48 AM T [facility] CALCIUM S/P/B 9.7 8.5 - 10.1 MG/DL 02/02/2022 11:48 AM [facility] ANION GAP 8.8 5.0 - 15.0 MMOL/L 02/02/2022 11:48 AM [facility] OSMOLALITY (CALC) 292 MOSM/KG 022 11:48 AM [facility] Comment:REFERENCE RANGE NOT ESTABLISHED GFR ESTIMATE 52(L) >90 ML/MIN/1. 73 M2 02/02/2022 11:48 AM [facility] GFR NOTES GFR REFERENCE S: 02/02/2022 11:48 AM [facility] Comment: THE ESTIMATED GFR IS [...] MD LABORATORY Final Result Performing Organization Address [facility] de Phone Number [facility] [address] [place] [address], [place] [phone] * (ABNORMAL) POCT glucose (02/02/2022 6:11 AM CDT) GLUCOSE POC 191(H) 70 - 109 02/02/2022 6:22 AM CDT [facility] 02/02/2022 6:11 AM CDT us Saroj Rodriges MD POCT ORDERABLES - DEVICE Fin al Result Performing Organization Address [facility] de Phone Number [facility] [address] [place] [address], [phone] * (ABNORMAL) POCT glucose (02/01/2022 9:53 PM CDT) GLUCOSE POC 158(H) 70 - 109 02/01/2022 10:29 PM CDT [facility] 02/01/2022 9:53 PM CDT us Saroj Rodriges MD POCT ORDERABLES - DEVICE Fin al Result Performing Organization Address [facility] de Phone Number [facility] [address] [place] [address], [place] [phone] * (ABNORMAL) TROPONIN, QUANT (02/01/2022 6:06 PM CDT) TROPONIN I HIGH SENSITIVITY 197(H) 0 - 78 ng/L 02/01/2022 6:47 PM CDT [facility] 02/01/2022 6:06 PM CDT Segundo Montana MD LABORATORY Final Result Performing Organization Address [facility] de Phone Number [facility] [address] [place] [address], [id number] * (ABNORMAL) POCT glucose (02/01/2022 4:53 PM CDT) GLUCOSE POC 231(H) 70 - 109 02/01/2022 5:02 PM CDT [facility] 02/01/2022 4:53 PM CDT Saroj Rodriges MD POCT ORDERABLES - DEVICE Fin al Result Performing Organization Address [facility] de Phone Number [facility] [address] [place] [address], [phone] * USE ECHOCARDIOGRAM W CON (02/01/2022 2:26 PM CDT) Anatomical Region Laterality Modality NA Echocardiogram 02/01/2022 2:01 PM CDT Narrative 02/01/2022 5:26 PM CDT ?Echocardiography Report Pat.Name: ??OBIE SIMS ?Pat.ID: ?[id number] ? St.Date: ?? 02/01/2022 ? Refer.MD: ??[id number] DUVALLNkechi ALBERTS NABIH ? EWDPROV ?EWDPROV Exam [...] ?? Value ?203 g ? LV Mass [id number] ?? Value ? 98.1 g/m2 ? Right [...] MD - 02/01/2022 Echocardiography Report Pat.Name: OBIE SIMS Pat.ID: [id number] St.Date: 02/01/2022 Refer.MD: [id number] JADIEL ALBERTS NABIH EWDPROV EWDPROV Exam Time: 2:01:00 PM Study Type:ECHO W/CONTRAST COMPLETE Height: 66.14in Weight: 215.6lb BSA: 2.07 m2 Age: 12 1955,66Y Sex: MALE BP: 124/81 Sonogrphr: Keegan Carlin [facility] Pat. Stat.:Inpatient Room: [facility] CPT - 4: C8929 Reason for Study:NSTEMI [...] Mass 2D Value 203 g LV Mass [id number] Value 98.1 g/m2 Right Ventricle Right Ventricle [...] SPEC DESCRIPTION BLOOD 02/01/2022 5:18 AM CDT [facility] SPECIAL REQUESTS NO SPECIAL REQUEST 02/01/2022 5:18 AM CDT [facility] CULTURE RESULT NO GROWTH 5 DAYS 02/06/2022 11:33 PM CDT [facility] BLOOD SPECIMEN OBTAINED FOR BLOOD CULTURE / Unknown 02/01/2022 11:40 AM CDT 02/01/2022 11:43 AM CDT Segundo Montana MD MICROBIOLOGY - GENERAL ORDERAB LES Final Result Performing Organization Address [facility] Co de Phone Number [facility] [address] [place] [address], [phone] * PROTIME/INR, VENOUS (PROTHROMBIN TIME) (02/01/2022 11:27 AM CDT) PROTIME 12.0 9.4 - 12.5 SEC 02/01/2022 12:25 PM CDT [facility] INR 1.1 0.8 - 1.1 02/01/2022 12:25 PM CDT [facility] 02/01/2022 11:2 7 AM CDT Segundo Montana MD LABORATORY Final Result Performing Organization Address City/[facility] Co de Phone Number [facility] [address] [place] [address], [id number] * (ABNORMAL) CK (CPK) (02/01/2022 11:27 AM CDT) CPK 2,118(H) 39 - 308 U/L 02/01/2022 12:39 PM CDT [facility] 02/01/2022 11:2 7 AM CDT Segundo Montana MD LABORATORY Final Result Performing Organization Address [facility] Co de Phone Number [facility] [address] [place] [address], [phone] * (ABNORMAL) PROCALCITONIN (PCT) (02/01/2022 11:27 AM CDT) Procalcitonin 2.61(H) <0.50 NG/ML 02/02/2022 11:24 AM CDT [facility] Comment: VALUES ABOVE 2.00 NG/ML ARE HIGHLY SUGGESTIVE OF SEPSIS OR OTHER SEVERE BACTERIAL INFECTION. 02/01/2022 11:2 7 AM CDT Segundo Montana MD LABORATORY Final Result Performing Organization Address [facility] Co de Phone Number [facility] [address] [place] [address], [id number] * CULTURE, BACTERIA, BLOOD (02/01/2022 11:27 AM CDT) SPEC DESCRIPTION BLOOD 02/01/2022 5:18 AM CDT [facility] SPECIAL REQUESTS NO SPECIAL REQUEST 02/01/2022 5:18 AM CDT [facility] CULTURE RESULT NO GROWTH 5 DAYS 02/06/2022 11:33 PM CDT [facility] BLOOD SPECIMEN OBTAINED FOR BLOOD CULTURE / Unknown 02/01/2022 11:27 AM CDT 02/01/2022 11:31 AM CDT Segundo Montana MD MICROBIOLOGY - GENERAL ORDERAB LES Final Result Performing Organization Address City/[facility]/ZIP Co de Phone Number [facility] [address] [place] [address], [phone] * LIPID PANEL (02/01/2022 11:27 AM CDT) CHOLESTEROL 151 MG/DL 02/01/2022 12:29 PM CDT [facility] Comment:DESIRABLE: <200 TRIGLYCERIDES 119 MG/DL 02/01/2022 12:29 PM CDT [facility] Comment:<150 NORMAL HDL 73 >39 MG/DL 02/01/2022 12:29 PM CDT [facility] LDL (CALCULATED) 54 MG/DL 02/02/20 22 12:29 PM CDT [facility] Comment:<100 OPTIMAL VLDL CALCULATION 24 MG/DL 02/02/20 12:29 PM CDT [facility] Comment:REFERENCE RANGE NOT ESTABLISHED CHOL/HDL RATIO 2.1 02/01/2022 12:29 PM CDT [facility] Comment:REFERENCE RANGE NOT ESTABLISHED LDL/HDL 0.7 02/01/2022 12:29 PM CDT [facility] Comment:REFERENCE RANGE NOT ESTABLISHED NON HDL CHOLESTEROL 78 MG/DL 02/01/2022 12:29 PM CDT [facility] Comment:REFERENCE RANGE NOT ESTABLISHED 02/01/2022 11:2 7 AM CDT Segundo Montana MD LABORATORY Final Result Performing Organization Address City/[facility]/ZIP Co de Phone Number [facility] [address] [place] [address], [phone] * (ABNORMAL) TROPONIN, QUANT (02/01/2022 11:27 AM CDT) TROPONIN I HIGH SENSITIVITY 264(H) 0 - 78 ng/L 02/01/2022 12:12 PM CDT [facility] 02/01/2022 11:2 7 AM CDT us Segundo Montana MD LABORATORY Final Result Performing Organization Address [facility] Co de Phone Number [facility] [address] [place] [address], [id number] * (ABNORMAL) TROPONIN, QUANT (02/01/2022 11:27 AM CDT) TROPONIN I HIGH SENSITIVITY 247(H) 0 - 78 ng/L 02/01/2022 12:29 PM CDT [facility] 02/01/2022 11:2 7 AM CDT us Segundo Montana MD LABORATORY Final Result Performing Organization Address [facility] de Phone Number [facility] [address] [place] [address], [phone] * LACTIC ACID (02/01/2022 11:27 AM CDT) Pathologist [facility] LACTIC ACID VENOUS 1.2 0.4 - 2.0 MMOL/L 02/01/2022 12:11 PM CDT [facility] 02/01/2022 11:2 7 AM CDT us Segundo Montana MD LABORATORY Final Result Performing Organization Address [facility] Co de Phone Number [facility] [address] [place] [address], [phone] * (ABNORMAL) HEMOGLOBIN, GLYCATED (02/01/2022 11:27 AM CDT) HGB A1C 7.9(H) <5.7 % 02/01/2022 12:34 PM CDT [facility] ESTIMATED AVG GLUCOSE 180(H) 74 - 114 MG/DL 02/01/2022 12:34 PM CDT [facility] 02/01/2022 11:2 7 AM CDT Segundo Montana MD LABORATORY Final Result [facility] [address] [place] [address], [id number] * (ABNORMAL) COMPREHENSIVE METABOLIC PANEL (02/01/2022 11:27 AM CDT) SODIUM S/P/B 132(L) 136 - 145 MMOL/L 02/01/2022 12:29 PM CDT [facility] POTASSIUM S/P/B 3.5 3.5 - 5.1 MMOL/L 02/01/2022 12:29 PM CDT [facility] CHLORIDE S/P/B 96(L) 98 - 107 MMOL/L 02/01/2022 12:29 PM CDT [facility] CO2 25.4 21.0 - 32.0 MMOL/L 02/01/2022 12:29 PM CDT [facility] GLUCOSE 133(H) 74 - 106 MG/DL 02/01/2022 12:29 PM CDT [facility] BUN 44(H) 7 - 18 MG/DL 02/01/2022 12:29 PM CDT [facility] CREATININE S/P/B 1.53(H) 0.70 - 1.30 MG/DL 02/01/2022 12:29 PM CDT [facility] CALCIUM S/P/B 9.3 8.5 - 10.1 MG/DL 02/01/2022 12:29 PM CDT [facility] BILIRUBIN TOTAL S/P/B 1.2(H) 0.2 - 1.0 MG/DL 02/01/2022 12:29 PM T [facility] ALKALINE PHOSPHATASE S/P/B 104 45 - 115 U/L 02/01/2022 12:29 PM [facility] AST 89(H) 15 - 37 U/L 02/01/2022 12:29 PM T [facility] ALT 47 16 - 61 U/L 02/01/2022 12:29 PM [facility] TOTAL PROTEIN S/P/B 7.1 6.4 - 8.2 G/DL 02/01/2022 12:29 PM [facility] ALBUMIN S/P/B 3.5 3.4 - 5.0 G/DL 02/01/2022 12:29 PM [facility] ANION GAP 10.6 5.0 - 15.0 MMOL/L 02/01/2022 12:29 PM [facility] OSMOLALITY (CALC) 287 MOSM/KG 022 12:29 PM [facility] Comment:REFERENCE RANGE NOT ESTABLISHED GFR ESTIMATE 50(L) >90 ML/MIN/1. 73 M2 02/01/2022 12:29 PM [facility] GFR NOTES GFR REFERENCE S: 02/01/2022 12:29 PM [facility] Comment: THE ESTIMATED GFR IS [...] CDT Segundo Montana MD LABORATORY Final Result [facility] [address] [place] [address], [id number] * (ABNORMAL) CBC W/DIFF AUTOMATED (02/01/2022 11:27 AM CDT) WBC 12.3(H) 4.0 - 10.8 x10'3/uL 02/01/2022 11:55 AM CDT [facility] RBC 3.67(L) 4.50 - 6.10 x10'6/uL 02/01/2022 11:55 AM CDT [facility] HGB 10.5(L) 13.0 - 18.0 G/DL 02/01/2022 11:55 AM CDT [facility] HCT 31.9(L) 37.0 - 52.0 % 02/01/2022 11:55 AM CDT [facility] MCV 86.9 78.0 - 100.0 FL 02/01/2022 11:55 AM CDT [facility] MCH 28.6 27.0 - 31.0 PG 02/01/2022 11:55 AM CDT [facility] MCHC 32.9(L) 33.0 - 36.0 G/DL 02/01/2022 11:55 AM CDT [facility] RDW 14.8(H) 11.5 - 14.5 % 02/01/2022 11:55 AM CDT [facility] PLT 181 150 - 350 x10'3/uL 02/01/2022 11:55 AM CDT [facility] MPV 10.8(H) 7.4 - 10.4 FL 02/01/2022 11:55 AM CDT [facility] ABS. NEUTROPHILS 8.58(H) 1.60 - 8.30 x10'3/uL 02/01/2022 11:55 AM CDT [facility] ABS. LYMPHOCYTES 1.99 0.80 - 4.70 x10'3/uL 02/01/2022 11:55 AM CDT [facility] ABS. MONOCYTES 1.56(H) 0.00 - 1.50 x10'3/uL 02/01/2022 11:55 AM CDT [facility] ABS. EOSINOPHILS 0.06 0.00 - 0.40 x10'3/uL 02/01/2022 11:55 AM CDT [facility] ABS. BASOPHILS 0.02 0.00 - 0.20 x10'3/uL 02/01/2022 11:55 AM CDT [facility] ABS. IMMATURE GRANULOCYTES 0.07(H) 0.00 - 0.03 x10'3/uL 02/01/2022 11:55 AM CDT [facility] ABS. NUCLEATED RBC'S 0.00 0.0 x10'3/uL 02/01/2022 11:55 AM CDT [facility] 02/01/2022 11:2 7 AM CDT Segundo Montana MD LABORATORY Final Result Performing Organization Address [facility] de Phone Number [facility] [address] [place] [address], [id number] * (ABNORMAL) POCT glucose (02/01/2022 11:14 AM CDT) GLUCOSE POC 134(H) 70 - 109 02/01/2022 11:44 AM CDT [facility] 02/01/2022 11:1 4 AM CDT Saroj Rodriges MD POCT ORDERABLES - DEVICE Fin al Result Performing Organization Address [facility] Co de Phone Number [facility] [address] [place] [address], [id number] * ECG 12 lead (02/01/2022 6:51 AM CDT) 02/01/2022 6:51 AM CDT Narrative [facility] - 02/01/2022 7:00 AM CDT ? [facility] ?[address] [place], [place] ??[address] ? Test Date: ?2022-02-01 Pat Name: ? OBIE SIMS ?Department: ?? 1 ? Room: ? 510AA Gender: ? Male ? 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 Requested By: SEGUNDO MONTANA Order Number: [id number] ? Reading MD: ?? Armand Cosby ? Measurements Intervals ?[place] ? Rate: ? 80 ? P: ? [place]: ? 0 ?QRS: ?-31 QRSD: ? 150 ?T: ?137 QT: ? 406 ? QTc: ?469 ? 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: Prabha : 1955 Requested By: SEGUNDO MONTANA Order Number: [id number] Reading MD: Armand Cosby Measurements Intervals [place] Rate: 80 P: [place]: 0 QRS: -31 QRSD: 150 T: 137 QT: 406 QTc: 469 Interpretive Statements ATRIAL FIBRILLATION LEFT AXIS DEVIATION LEFT BUNDLE BRANCH BLOCK us Segundo Montana MD ECG ORDERABLES Final Result [facility] * (ABNORMAL) POCT glucose (02/01/2022 6:31 AM CDT) GLUCOSE POC 175(H) 70 - 109 02/01/2022 6:32 AM CDT [facility] 02/01/2022 6:31 AM CDT Saroj Rodriges MD POCT ORDERABLES - DEVICE Fin al Result [facility] [address] [place] [address], [place] [phone] * XR CHEST PORTABLE (02/01/2022 6:14 AM [...] URINE CLEAN CATCH 02/01/2022 6:44 AM CDT [facility] SPECIAL REQUESTS NO SPECIAL REQUEST 02/01/2022 6:44 AM CDT [facility] CULTURE RESULT FEW CONTAMINANTS 01/21 11:45 AM CDT [facility] URINE SPECIMEN OBTAINED BY CLEAN CATCH PROCEDURE / Unknown 02/01/2022 6:00 AM CDT 02/01/2022 10:09 AM CDT us Segundo Montana MD MICROBIOLOGY - GENERAL ORDERAB LES Final Result [facility] [address] [place] [address], [id number] * (ABNORMAL) URINALYSIS (02/01/2022 6:00 AM CDT) COLOR (U) LIGHT YELLOW 02/01/2022 7:30 AM CDT [facility] TRANSPARENCY CLEAR 02/01/2022 7:30 AM CDT [facility] SPECIFIC GRAVITY (U) 1.011 1.002 - 1.035 02/01/2022 7:30 AM CDT [facility] U PH 5.0 5 - 8 02/01/2022 7:30 AM CDT [facility] PROTEIN (U) 20(A) NEGATIVE 02/01/2022 7:30 AM CDT [facility] URINE GLUCOSE NEGATIVE NEGATIVE MG/DL 02/01/2022 7:30 AM CDT [facility] KETONES MG/DL (U) NEGATIVE NEGATIVE 02/01/2022 7:30 AM CDT [facility] BILIRUBIN (U) NEGATIVE NEGATIVE 02/01/2022 7:30 AM CDT [facility] BLOOD (U) 2+(A) NEGATIVE 02/01/2022 7:30 AM CDT [facility] NITRITES NEGATIVE NEGATIVE 02/01/2022 7:30 AM CDT [facility] UROBILINOGEN NORMAL 0 - 1 EU/DL 02/01/2022 7:30 AM CDT [facility] LEUKOCYTES (U) NEGATIVE NEGATIVE 02/01/2022 7:30 AM CDT [facility] RBC/HPF 1 0 - 3 /HPF 02/01/2022 7:30 AM CDT [facility] WBC/HPF NONE 0 - 6 /HPF 02/01/2022 7:30 AM CDT [facility] BACTERIA (U) NONE /HPF 02/01/2022 7:30 AM CDT [facility] SQUAMOUS EPITHELIALS <1 02/01/2022 7:30 AM CDT [facility] URINE SPECIMEN OBTAINED BY CLEAN CATCH PROCEDURE / Unknown 02/01/2022 6:00 AM CDT us Segundo Montana MD URINE ORDERABLES Final Result [facility] [address] [place] [address], [id number] documented in this encounter Visit Diagnoses Diagnosis Elevated troponin- Primary Other abnormal blood chemistry Elevated troponin Other abnormal blood chemistry NSTEMI (non-ST elevated myocardial infarction) ([facility]) Acute myocardial infarction, subendocardial infarction, episode of care unspecified Chest pain Chest pain, unspecified Other closed fracture of distal end of right fibula, initial encounter Elevated brain natriuretic peptide (BNP) level Other nonspecific findings on examination of blood S/P aortic valve replacement with bioprosthetic valve Heart valve replaced by other means NSTEMI (non-ST elevated myocardial infarction) ([facility]) Acute myocardial infarction, subendocardial infarction, episode of care unspecified Elevated brain natriuretic peptide (BNP) level Other nonspecific findings on examination of blood Fall Unspecified fall documented in this encounter Admitting Diagnoses Diagnosis NSTEMI (non-ST elevated myocardial infarction) ([facility]) Acute myocardial infarction, subendocardial [...] Gilman RN) 805 (Given - Provider: Mookie rOtega Rai, RN)2020 (Given - Provider: Ludwig Gilman [...] as of this encounter Care Teams Medical Dosimetrist Relationship Specialty Start Date End Date Megan Infante MD [address] [facility] [address] [place] [address] PCP - General FAMILY PRACTICE 04/06/16 Piyush Pandey MD Brandon Relay Associate CARDIOVASCULAR DISEASE 04/06/16 12/28/23 Barney Chase, SENIOR TRAINING SPECIALIST, TELEPHONE DIRECTORY DISTRIBUTOR DRIVER-C [address] [facility] [address] [place] [phone] NURSE PRACTITIONER 01/04/17 04/03/24 Linda Block MD [address] [address] Brandon Relay Associate CLINICAL CARDIAC ELECTROPHYSIOLOGY 02/08/17 04/12/23 Jeff Grace MD [address] [facility] [address] [phone] Consulting Physician INTERNAL MEDICINE 02/20/19 3 Zaki Ortiz MD [address] [facility] [address] [address] Consulting Physician PULMONARY DISEASE 07/12/19 documented as of this encounter
--- OUTSIDE RECORDS SUMMARY | 2024-09-03 20:41 | XMS_ITS | Encounter Summary ---
Author Organization [facility] Address [address] [place] [address]. [place] [address] [place] [address] Care Team Providers Care Product Development Worker Name Role Phone Piyush Pandey MD Unavailable Unavailabl e Megan Infante MD Primary Care Provider [phone] Sharmila Davis APRN CLIENT EXPERIENCE MANAGER-C Unavailable [phone] Linda Block MD Unavailable [phone] Jeff Grace MD Unavailable Zaki Ortiz MD Unavailable [phone] Reason for Visit * Reason Onset Date Comments Question 06/19/2021 Encounter Details Date Type Department Care Team (Late st Contact Info) Description 06/19/2021 Telephone [facility] Multispecialty [address] [address] Damaso Barnes MD [address] [place] [address] Question Social History Tobacco Use [...] it? Please call Amie back to advise [phone] documented in this encounter Plan of Treatment Upcoming Encounters Date Type Department Care Team (Late st Contact Info) Description 09/25/2024 2:00 PM MELTER CASTER Appointment [facility] [address] [place] [address] Zayra Powell, BAR HOST/HOSTESS [address] [place] [address] 10/16/2024 3:30 PM MELTER CASTER Office Visit [facility] [address] [place] [phone] Brit Gonzáles MD 619 [place] [address] documented as of this encounter Visit Diagnoses Not on filedocumented in this encounter Care Teams Product Development Worker Relationship Specialty Start Date End Date Megan Infante MD [address] [address] PCP - General FAMILY PRACTICE 04/06/16 Piyush Pandey MD Pablo Agricultural Service Technician CARDIOVASCULAR DISEASE 04/06/16 12/28/23 Sharmila Davis, DIGITAL EXPERIENCE MANAGER, CLIENT EXPERIENCE MANAGER-C [address] [facility] [address] [place] [phone] NURSE PRACTITIONER 01/04/17 04/03/24 Linda Block MD [address] [phone] Pablo Agricultural Service Technician CLINICAL CARDIAC ELECTROPHYSIOLOGY 02/08/17 04/12/23 Jeff Grace MD [address] [phone] Consulting Physician INTERNAL MEDICINE 02/20/19 3 Zaki Ortiz MD [address] [phone] Consulting Physician PULMONARY DISEASE 07/12/19 documented as of this encounter
--- OUTSIDE RECORDS SUMMARY | 2024-09-03 20:41 | XMS_ITS | Encounter Summary ---
Author Organization [facility] Address [facility] [place] [address] [place] [address] Care Team Providers Care Tilt Tray Driver Name Role Phone Piyush Pandey MD Unavailable Unavailabl e Megan Infante MD Primary Care Provider [phone] Sharmila Davis APRN EXCHANGE CONSULTANT-C Unavailable [phone] Linda Block MD Unavailable [phone] Jeff Grace MD Unavailable Zaki Ortiz MD Unavailable [phone] Reason for Visit * Reason Onset Date Comments Follow Up Call 01/20/2022 Encounter Details Date Type Department Care Team (Late st Contact Info) Description 01/20/2022 Telephone [facility] [place] [id number] Keila Zhong RNFA Follow Up Call Social [...] st Contact Info) Description 09/25/2024 2:00 PM BRUSH HOLDER INSPECTOR Appointment [facility] [address] [place] [address] Zayra Powell, MAINTENANCE OPERATOR [address] [place] [phone] 10/16/2024 3:30 PM BRUSH HOLDER INSPECTOR Office Visit [facility] [address] [place] [address] Brit Gonzáles MD [address]19 [place] [address] documented as of this encounter Visit Diagnoses Not on filedocumented in this encounter Additional Health Concerns Assessment Noted Time PHQ-9 Depression Total Score: 0 12/02/19 22 1:18 PM CDT documented as of this encounter Care Teams Tilt Tray Driver Relationship Specialty Start Date End Date Megan Infante MD [address] [place] [address] PCP - General FAMILY PRACTICE 04/06/16 Piyush Pandey MD [place] [place] [employer] Shop Mechanic CARDIOVASCULAR DISEASE 04/06/16 12/28/23 Sharmila Davis APRN, EXCHANGE CONSULTANT-C [address] [facility] [address] [place] [phone] NURSE PRACTITIONER 01/04/17 04/03/24 Linda Block MD [address] [facility] [address] [place] [phone] [employer] Shop Mechanic CLINICAL CARDIAC ELECTROPHYSIOLOGY 02/08/17 04/12/23 Jeff Grace MD [address] [facility] [address] [place] [address] Consulting Physician INTERNAL MEDICINE 02/20/19 3 Zaki Ortiz MD [address] [place] [phone] Consulting Physician PULMONARY DISEASE 07/12/19 documented as of this encounter
--- OUTSIDE RECORDS SUMMARY | 2024-09-03 20:41 | XMS_ITS | Encounter Summary ---
Author Organization [facility] Address [address] [place] [address]. [place] [address] [place] [address] Care Team Providers Care Volunteer Fire Fighter Name Role Phone Piyush Pandey MD Unavailable Unavailabl e Megan Infante MD Primary Care Provider [phone] Sharmila Davis APRN OTHER SPORTS COACH OR INSTRUCTOR-C Unavailable [phone] Linda Block MD Unavailable [phone] Jeff Grace MD Unavailable Zaki Ortiz MD Unavailable [phone] Encounter Details Date Type Department Care Team [...] Contact Info) Description 09/25/2024 2:00 PM EXECUTIVE CHEF Appointment [facility] [address] [place] [address] Zayra Powell, DISTRIBUTOR SALES CONSULTANT [address] [place], [place] [phone] 10/16/2024 3:30 PM EXECUTIVE CHEF Office Visit [facility] [address] [place] [phone] Brit Gonzáles MD [address] [place], [place] [phone] documented as of this encounter Visit Diagnoses Not on filedocumented in this encounter Care Teams Volunteer Fire Fighter Relationship Specialty Start Date End Date Megan Infante MD [address] [place] [address] PCP - General FAMILY PRACTICE 04/06/16 Piyush Pandey MD [place] Community Outreach Specialist CARDIOVASCULAR DISEASE 04/06/16 12/28/23 Sharmila Davis APRN, OTHER SPORTS COACH OR INSTRUCTOR-C [address] [facility] [address] [place] [phone] NURSE PRACTITIONER 01/04/17 04/03/24 Linda Block MD [address] [facility] [address] [place] [address] [place] Community Outreach Specialist CLINICAL CARDIAC ELECTROPHYSIOLOGY 02/08/17 04/12/23 Jeff Grace MD 6[address] [facility] [address] [place] [phone] Consulting Physician INTERNAL MEDICINE 02/20/19 3 Zaki Ortiz MD [address] [place] [address] Consulting Physician PULMONARY DISEASE 07/12/19 documented as of this encounter
--- OUTSIDE RECORDS SUMMARY | 2024-09-03 20:41 | XMS_ITS | Encounter Summary ---
Author Organization [facility] Address [facility]6 [facility] [address] [place] [address] Care Team Providers Care Infrastructure Solutions Architect Name Role Phone Piyush Pandey MD Unavailable Unavailabl e Megan Infante MD Primary Care Provider [phone] Sharmila Davis APRN, NP-C Unavailable Linda Block MD Unavailable [phone] Jeff Grace MD Unavailable Zaki Ortiz MD Unavailable [phone] Reason for Visit * Reason Onset Date Comments Edema 01/02/2022 Encounter Details Date Type Department Care Team (Late st Contact Info) Description 01/02/2022 Telephone [facility] [address] [place] [phone] Piyush Pandey MD Edema Social History Tobacco [...] with them. Please call Amie back at [phone] documented in this encounter Plan of Treatment Upcoming Encounters Date Type Department Care Team (Late st Contact Info) Description 09/25/2024 2:00 PM COAL TRIMMER MACHINE OPERATOR Appointment [facility] [address] [place] [address] Zayra Powell, COUNTY HOME DEMONSTRATOR [address] [place] [address] 10/16/2024 3:30 PM COAL TRIMMER MACHINE OPERATOR Office Visit [facility] [address] [place] [phone] Brit Gonzáles MD 9 [place] [address] documented as of this encounter Visit Diagnoses Not on filedocumented in this encounter Additional Health Concerns Assessment Noted Time PHQ-9 Depression Total Score: 0 12/02/19 22 1:18 PM CDT documented as of this encounter Care Teams Infrastructure Solutions Architect Relationship Specialty Start Date End Date Megan Infante MD [address] [facility] [place] [address] PCP - General FAMILY PRACTICE 04/06/16 Piyush Pandey MD [place] Nuclear Instructor CARDIOVASCULAR DISEASE 04/06/16 12/28/23 Sharmila Davis, PIGMENT PROCESSOR, COSTUME SHOP MANAGER-C [address] [facility] [address] [place] [phone] NURSE PRACTITIONER 01/04/17 04/03/24 Linda Block MD [address] [phone] [place] Nuclear Instructor CLINICAL CARDIAC ELECTROPHYSIOLOGY 02/08/17 04/12/23 Jeff Grace MD [address] [address] Consulting Physician INTERNAL MEDICINE 02/20/19 3 Zaki Ortiz MD [address] [phone] Consulting Physician PULMONARY DISEASE 07/12/19 documented as of this encounter
--- OUTSIDE RECORDS SUMMARY | 2024-09-03 20:41 | XMS_ITS | Encounter Summary ---
Author Organization [facility] Address [address] [place] [address]. [place] [address] [place] [address] Care Team Providers Care Landscape Maintenance Internship Name Role Phone Piyush Pandey MD Unavailable Unavailabl e Megan Infante MD Primary Care Provider [phone] Sharmila Davis APRN CREAM RIPENER-C Unavailable [phone] Linda Block MD Unavailable [phone] Jeff Grace MD Unavailable Zaki Ortiz MD Unavailable [phone] Reason for Visit * Reason Comments Image (SCAN) Encounter Details Date Type Department Care Team (Late Contact Info) Description 01/31/2022 Scan [facility] [address] [place] [address] Scanned, Documents Image (SCAN) Social History Tobacco [...] st Contact Info) Description 09/25/2024 2:00 PM SUPERINTENDENT RECREATION Appointment [facility] [address] [place] [address] Zayra Powell FNP [address] [place] [phone] 10/16/2024 3:30 PM SUPERINTENDENT RECREATION Office Visit [facility] [address] [place] [address] Brit Gonzáles MD [address] [place], [place] [address] documented as of this encounter Procedures Procedure [...] as of this encounter Care Teams Landscape Maintenance Internship Relationship Specialty Start Date End Date Megan Infante MD [address] [place] [address] PCP - General FAMILY PRACTICE 04/06/16 Piyush Pandey MD [place] Household Refrigerator Mechanic CARDIOVASCULAR DISEASE 04/06/16 12/28/23 Sharmila Davis APRN, CREAM RIPENER-C [address] [facility] [address] [place] [address] NURSE PRACTITIONER 01/04/17 04/03/24 Linda Block MD [address] [phone] [place] Household Refrigerator Mechanic CLINICAL CARDIAC ELECTROPHYSIOLOGY 02/08/17 04/12/23 Jeff Grace MD [address] [address] Consulting Physician INTERNAL MEDICINE 02/20/19 3 Zaki Ortiz MD [address] [address] Consulting Physician PULMONARY DISEASE 07/12/19 documented as of this encounter
--- OUTSIDE RECORDS SUMMARY | 2024-09-03 20:41 | XMS_ITS | Encounter Summary ---
Author Organization [facility] Address [facility]6 [facility] [place] [address] [place] [address] Care Team Providers Care Barrel Assembly Inspector Name Role Phone Piyush Pandey MD Unavailable Unavailabl e Megan Infante MD Primary Care Provider [phone] Sharmila Davis APRN, HAIR CLIPPER POWER-C Unavailable [phone] Linda Block MD Unavailable [phone] Jeff Grace MD Unavailable Zaki Ortiz MD Unavailable [phone] Encounter Details Date Type Department Care Team (Late st Contact Info) Description 12/19/2021 Orders Only [facility] [address] [place] [address] Chris Nuñez, CARROT BUNCHER Social History Tobacco Use Types Packs/Day Years [...] st Contact Info) Description 09/25/2024 2:[address] [facility] [address] [place] [address] Zayra Powell, HAND ICER 12[address] [facility] [place] [address] 10/16/2024 3:30 PM FIGHTER PILOT Office Visit [facility] [address] [facility] [place] [address] Brit Gonzáles MD 619 [place] [address] documented as of this encounter Procedures Procedure Name Priority Date/Time Associated Diagnosis Comments PRO-BRAIN NATRIURETIC PEPTIDE Routine 12/19/2021 Shortness of breath BASIC METABOLIC PANEL Routine 12/19/2021 Shortness of breath documented in this encounter Results * PRO-BRAIN NATRIURETIC PEPTIDE (12/19/2021) Pathologist [facility] B TYPE NATRIURETIC PEPTIDE 1,617 12/19/2021 Sharmila Davis APRN, HAIR CLIPPER POWER-C LABORATORY Final Result * (ABNORMAL) BASIC METABOLIC PANEL (12/19/2021) Pathologist [facility] SODIUM S/P/B 139 POTASSIUM S/P/B 4.5 CO2 30 CHLORIDE S/P/B 100 GLUCOSE 206 mg/dL CALCIUM S/P/B 9.1 BUN 30 CREATININE S/P/B 1.82(A) 0.7 - 1.3 EGFR NON-AFR. AMER. 37 <=90 12/19/2021 Sharmila Davis APRN, HAIR CLIPPER POWER-C LABORATORY Final Result documented in this encounter Visit Diagnoses Diagnosis Shortness of breath documented in this encounter Additional Health Concerns Assessment Noted Time PHQ-9 Depression Total Score: 0 12/02/19 22 1:18 PM CDT documented as of this encounter Care Teams Barrel Assembly Inspector Relationship Specialty Start Date End Date Megan Infante MD [address] [facility] [place] [address] PCP - General FAMILY PRACTICE 04/06/16 Piyush Pandey MD [place] Forestry Technician CARDIOVASCULAR DISEASE 04/06/16 12/28/23 Sharmila Davis APRN, HAIR CLIPPER POWER-C [address] [place] [place] [phone] NURSE PRACTITIONER 01/04/17 04/03/24 Linda Block MD [address] [address] [place] Forestry Technician CLINICAL CARDIAC ELECTROPHYSIOLOGY 02/08/17 04/12/23 Jeff Grace MD [address] [address] Consulting Physician INTERNAL MEDICINE 02/20/19 3 Zaki Ortiz MD [address] [address] Consulting Physician PULMONARY DISEASE 07/12/19 documented as of this encounter
--- OUTSIDE RECORDS SUMMARY | 2024-09-03 20:41 | XMS_ITS | Encounter Summary ---
Author Organization [facility] Address [facility] [place] [address] [place] [address] Care Team Providers Care Mold Sheet Cleaner Name Role Phone Piyush Pandey MD Unavailable Unavailabl e Megan Infante MD Primary Care Provider [phone] Sharmila Davis APRN PRINTING MACHINE MECHANIC-C Unavailable [phone] Linda Block MD Unavailable [phone] Jeff Grace MD Unavailable Zaki Ortiz MD Unavailable [phone] Reason for Visit * Reason Comments Fracture CLOSED FRACTURE OF D ISTAL RIGHT FIBULA (DOI: 12/28/2021) Encounter Details Date Type Department Care Team (Latest Contact Info) Description 01/29/2022 2:45 PM CDT Office Visit [facility] [place] [phone] Jacinto Hamitlon MD [address] [place], [place] [phone] Fracture (CLOSED FRACTURE OF DISTAL RIGHT FIBULA [...] numbness or tingling. No swelling. He takes [place] for painonly at night with good relief, [...] II (CMS/HCC) ??? Coronary artery disease involving [place] coronary artery of [place] heart without angina pectoris ??? COPD (chronic [...] (Incomplete) performed by Kilo Navarro MD at [facility] OR ??? COLONOSCOPY N/A 01/27/2022 COLONOSCOPY WITH COLD SNARE POLYPECTOMY performed by Kilo Navarro MD at [facility] OR ??? HIP ARTHROPLASTY Left [...] Prefilled Syringe, , Disp: , Rfl: ??? Hxxkponsnse-Rihbxhyrx-Qliyqf 100-62.5-25 MCG/INH AEROSOL POWDER, BREATH ACTIVATED, Inhale [...] st Contact Info) Description 09/25/2024 2:00 PM AUTOMATION MACHINE OPERATOR Appointment [facility] [address] [facility] [place] [address] Zayra Powell, CAMP NURSE [address] [facility] [address] [place] [phone] 10/16/2024 3:30 PM AUTOMATION MACHINE OPERATOR Office Visit [facility] [address] [facility] [place] [address] Brit Gonzáles MD [address]19 [place] [address] documented as of this encounter Visit Diagnoses Diagnosis Other closed fracture of distal end of right fibula with routine healing, subsequent encounter- Primary documented in this encounter Additional Health Concerns Assessment Noted Time PHQ-9 Depression Total Score: 0 12/02/19 22 1:18 PM CDT documented as of this encounter Care Teams Mold Sheet Cleaner Relationship Specialty Start Date End Date Megan Infante MD [address] [place] [address] PCP - General FAMILY PRACTICE 04/06/16 Piyush Pandey MD [place] Marketing Traffic Manager CARDIOVASCULAR DISEASE 04/06/16 12/28/23 Sharmila Davis APRN, PRINTING MACHINE MECHANIC-C [address] [place] [address] [address] [place] [address] NURSE PRACTITIONER 01/04/17 04/03/24 Linda Block MD [address] [place] [phone] [place] Marketing Traffic Manager CLINICAL CARDIAC ELECTROPHYSIOLOGY 02/08/17 04/12/23 Jeff Grace MD [address] [facility] [address] [place] [phone] Consulting Physician INTERNAL MEDICINE 02/20/19 3 Zaki Ortiz MD [address] [place] [address] Consulting Physician PULMONARY DISEASE 07/12/19 documented as of this encounter
--- OUTSIDE RECORDS SUMMARY | 2024-09-03 20:41 | XMS_ITS | Encounter Summary ---
Author Organization [facility] Address [address] [place] [address]. [place] [address] [place] [address] Care Team Providers Care Wildlife Protector Name Role Phone Piyush Pandey MD Unavailable Unavailabl e Megan Infante MD Primary Care Provider [phone] Sharmila Davis APRN, PAYROLL TAX ANALYST-C Unavailable Linda Block MD Unavailable [phone] Jeff Grace MD Unavailable Zaki Ortiz MD Unavailable [phone] Encounter Details Date Type Department Care Team (Late st Contact Info) Description 06/16/2021 Orders Only [facility] Medical Group Multispecialty [facility] [address] [place] [address] Damaso Barnes MD [address] [place] [address] Social History Tobacco Use Types [...] st Contact Info) Description 09/25/2024 2:00 PM ELECTROMECHANICAL TECHNICIAN Appointment [facility] [address] [place] [address] Zayra Powell, COST ENGINEER [address] [facility] [place] [address] 10/16/2024 3:30 PM ELECTROMECHANICAL TECHNICIAN Office Visit [facility] [address] [facility] [facility] [place] [address] Brit Gonzáles MD 619 [place], [place] [phone] documented as of this encounter Visit Diagnoses Diagnosis Obstructive sleep apnea- Primary Obstructive sleep apnea (adult) (pediatric) documented in this encounter Care Teams Wildlife Protector Relationship Specialty Start Date End Date Megan Infante MD [address] [facility] [place] [address] PCP - General FAMILY PRACTICE 04/06/16 Piyush Pandey MD [place] Varnish Remover CARDIOVASCULAR DISEASE 04/06/16 12/28/23 Sharmila Davis APRN, PAYROLL TAX ANALYST-C 619 [facility] [address] [place] [phone] NURSE PRACTITIONER 01/04/17 04/03/24 Linda Block MD 619 [facility] [address] [place] [phone] [place] Varnish Remover CLINICAL CARDIAC ELECTROPHYSIOLOGY 02/08/17 04/12/23 Jeff Grace MD [address] [place] [address] Consulting Physician INTERNAL MEDICINE 02/20/19 3 Zaki Ortiz MD [address] [place] [address] Consulting Physician PULMONARY DISEASE 07/12/19 documented as of this encounter
--- OUTSIDE RECORDS SUMMARY | 2024-09-03 20:41 | XMS_ITS | Encounter Summary ---
Author Organization [facility] Address [address] [place] [address]. [place] [address] [place] [address] Care Team Providers Care Lace Sewer Name Role Phone Piyush Pandey MD Unavailable Unavailabl e Megan Infante MD Primary Care Provider [phone] Sharmila Davis APRN TRAUMA REGISTRAR-C Unavailable [phone] Linda Block MD Unavailable [phone] Jeff Grace MD Unavailable Zaki Ortiz MD Unavailable [phone] Reason for Visit * Reason Onset Date Comments Results 06/16/2021 Encounter Details Date Type Department Care Team (Late st Contact Info) Description 06/16/2021 Telephone [facility] Medical Group Multispecialty [address] [address] Damaso Barnes MD [address] [place] [address] Results Social History Tobacco Use [...] Contact Info) Description 09/25/2024 2:00 PM FLAT EXAMINER Appointment [facility] [address] [place] [address] Zayra Powell, [facility] [address] [place] [address] 10/16/2024 3:30 PM FLAT EXAMINER Office Visit [facility] [address] [place] [address] Brit Gonzáles MD [address] [place] [address] documented as of this encounter Visit Diagnoses Not on filedocumented in this encounter Care Teams Lace Sewer Relationship Specialty Start Date End Date Megan Infante MD [address] [place] [address] PCP - General FAMILY PRACTICE 04/06/16 Piyush Pandey MD [place] Bladder Tier CARDIOVASCULAR DISEASE 04/06/16 12/28/23 Sharmila Davis, HAND WOVEN CARPET AND RUG MENDER, TRAUMA REGISTRAR-C [address] [place] [address] [address]57 [place] [address] NURSE PRACTITIONER 01/04/17 04/03/24 Linda Block MD [address] [place] [address] [place] Bladder Tier CLINICAL CARDIAC ELECTROPHYSIOLOGY 02/08/17 04/12/23 Jeff Grace MD [address] [facility] [address]P57 [place] [address] Consulting Physician INTERNAL MEDICINE 02/20/19 3 Zaki Ortiz MD [address] [facility] [address]P57 [place] [address] Consulting Physician PULMONARY DISEASE 07/12/19 documented as of this encounter
--- OUTSIDE RECORDS SUMMARY | 2024-09-03 20:41 | XMS_ITS | Encounter Summary ---
Author Organization [facility] Address [facility] [place] [address] [place] [address] Care Team Providers Care Heat Pump Installer Name Role Phone Piyush Pandey MD Unavailable Unavailabl e Megan Infante MD Primary Care Provider [phone] Sharmila Davis APRN, PULP MILL TEAM LEADER-C Unavailable [phone] Linda Block MD Unavailable [phone] Jeff Grace MD Unavailable Zaki Ortiz MD Unavailable [phone] Romeo-Concetta Pond MD Unavailable [phone] Jeff Grace MD Unavailable Brit Gonzáles MD Unavailable Encounter Details Date Type Department Care Team (Late st Contact Info) Description 01/02/2022 Abstract [facility] [address] [place] [address] Sharmila Davis APRN, PULP MILL TEAM LEADER-C [address] [facility] [address] [place] [address] Social History Tobacco Use Types Packs/Day Years [...] st Contact Info) Description 09/25/2024 2:00 PM LOG LOADER HELPER Appointment [facility] [address] [facility] [address] [place], [place] [phone] Zayra Powell, MINESWEEPING OFFICER [address] [facility] [place] [address] 10/16/2024 3:30 PM LOG LOADER HELPER Office Visit [facility] [address] [facility] [place] [place] [address] Brit Gonzáles MD 9 [place], [place] [address] documented as of this encounter Procedures Procedure [...] documented as of this encounter Care Teams Heat Pump Installer Relationship Specialty Start Date End Date Megan Infante MD [address] [facility] [place] [address] PCP - General FAMILY PRACTICE 04/06/16 Piyush Pandey MD [place] Order Analyst CARDIOVASCULAR DISEASE 04/06/16 12/28/23 Sharmila Davis APRN, PULP MILL TEAM LEADER-C [address] [phone] NURSE PRACTITIONER 01/04/17 04/03/24 Linda Block MD [address] [address] [place] Order Analyst CLINICAL CARDIAC ELECTROPHYSIOLOGY 02/08/17 04/12/23 Jeff Grace MD [address] [facility] [address] [address] Consulting Physician INTERNAL MEDICINE 02/20/19 3 Zaki Ortiz MD [address] [phone] Consulting Physician PULMONARY DISEASE 07/12/19 Concetta Acevedo MD [address] [place] [address] Surgeon NEUROLOGICAL SURGERY 12/16/22 Jeff Grace MD 619 [place] [address] Consulting Physician INTERNAL MEDICINE 02/11/23 Brit Gonzáles MD 619 [place] [address] Consulting Physician CARDIOVASCULAR DISEASE 12/29/23 documented as of this encounter
--- OUTSIDE RECORDS SUMMARY | 2024-09-03 20:41 | XMS_ITS | Encounter Summary ---
Author Organization [facility] Address [address] [place] [address]. [place] [address] [place] [address] Care Team Providers Care Court Abstractor Name Role Phone Piyush Pandey MD Unavailable Unavailabl e Megan Infante MD Primary Care Provider [phone] Sharmila Davis APRN VENDING STAND SUPERVISOR-C Unavailable [phone] Linda Block MD Unavailable [phone] Jeff Grace MD Unavailable Zaki Ortiz MD Unavailable [phone] Encounter Details Date Type Department Care Team [...] st Contact Info) Description 09/25/2024 2:00 PM AGRICULTURAL EQUIPMENT SALES ENGINEER Appointment [facility] [address] [place] [address] Zayra Powell, DIRECTOR OF SALES MARKETING [address] [place], [place] [address] 10/16/2024 3:30 PM AGRICULTURAL EQUIPMENT SALES ENGINEER Office Visit [facility] [address] [place] [address] Brit Gonzáles MD [address] [place], [place] [phone] documented as of this encounter Visit Diagnoses Not on filedocumented in this encounter Care Teams Court Abstractor Relationship Specialty Start Date End Date Megan Infante MD [address] [place] [address] PCP - General FAMILY PRACTICE 04/06/16 Piyush Pandey MD [place] Change Management Coordinator CARDIOVASCULAR DISEASE 04/06/16 12/28/23 Sharmila Davis APRN, VENDING STAND SUPERVISOR-C 619 [facility] 47 [place] [address] NURSE PRACTITIONER 01/04/17 04/03/24 Linda Block MD 619 [facility] [address]P57 [place] [address] [place] Change Management Coordinator CLINICAL CARDIAC ELECTROPHYSIOLOGY 02/08/17 04/12/23 Jeff Grace MD 619 [facility] 4P57 [place] [address] Consulting Physician INTERNAL MEDICINE 02/20/19 3 Zaki Ortiz MD [address] [place] [address] Consulting Physician PULMONARY DISEASE 07/12/19 documented as of this encounter
--- OUTSIDE RECORDS SUMMARY | 2024-09-03 20:41 | XMS_ITS | Encounter Summary ---
Author Organization [facility] Address [address] [place] [address]. [place] [address] [place] [address] Care Team Providers Care Right Of Way Supervisor Name Role Phone Piyush Pandey MD Unavailable Unavailabl e Megan Infante MD Primary Care Provider [phone] Sharmila Davis APRN DISABILITY COUNSELOR-C Unavailable [phone] Linda Block MD Unavailable [phone] Jeff Grace MD Unavailable Zaki Ortiz MD Unavailable [phone] Reason for Visit * Reason Comments CT (SCAN) Encounter Details Date Type Department Care Team (Late Contact Info) Description 01/31/2022 Scan [facility] [address] [facility] [address] Scanned, Documents CT (SCAN) Social [...] st Contact Info) Description 09/25/2024 2:00 PM SIZE MAKER Appointment [facility] [address] [place] [address] Zayra Powell FNP [address] [place] [phone] 10/16/2024 3:30 PM SIZE MAKER Office Visit [facility] [address] [place] [address] Brit Gonzáles MD [address] [place], [place] [address] documented as of this encounter Procedures Procedure [...] documented as of this encounter Care Teams Right Of Way Supervisor Relationship Specialty Start Date End Date Megan Infante MD [address] [place] [address] PCP - General FAMILY PRACTICE 04/06/16 Piyush Pandey MD [place] Radar Technician CARDIOVASCULAR DISEASE 04/06/16 12/28/23 Sharmila Davis APRN, DISABILITY COUNSELOR-C [address] [facility] 4P57 [place] [address] NURSE PRACTITIONER 01/04/17 04/03/24 Linda Block MD [address] [facility] [address] [phone] [place] Radar Technician CLINICAL CARDIAC ELECTROPHYSIOLOGY 02/08/17 04/12/23 Jeff Grace MD [address] [facility] [address] [address] Consulting Physician INTERNAL MEDICINE 02/20/19 3 Zaki Ortiz MD [address] [facility] [address] [phone] Consulting Physician PULMONARY DISEASE 07/12/19 documented as of this encounter
--- OUTSIDE RECORDS SUMMARY | 2024-09-03 20:41 | XMS_ITS | Encounter Summary ---
Author Organization [facility] Address [address] [place] [address]. [place] [address] [place] [address] Care Team Providers Care Mice Raiser Name Role Phone Piyush Pandey MD Unavailable Unavailabl e Megan Infante MD Primary Care Provider [phone] Sharmila Davis APRN, CHURCH SUPERVISOR-C Unavailable Linda Block MD Unavailable [phone] Jeff Grace MD Unavailable Zaki Ortiz MD Unavailable [phone] Encounter Details Date Type Department Care Team (Late st Contact Info) Description 12/15/2021 Abstract [facility] [address] [place] [address] Sharmila Davis APRN, CHURCH SUPERVISOR-C [address] [facility] [address]P57 [place] [address] Social History Tobacco Use Types Packs/Day Years [...] Contact Info) Description 09/25/2024 2:00 PM HOME ASSESSMENT NURSE Appointment [facility] [address] [place] [address] Zayra Powell, TELEPHONE DIAPHRAGM ASSEMBLER 12[address] [facility] [place] [address] 10/16/2024 3:30 PM HOME ASSESSMENT NURSE Office Visit [facility] [address] [facility] [place] [address] Brit Gonzáles MD 619 [place], [place] [address] documented as of this encounter Procedures Procedure [...] documented as of this encounter Care Teams Mice Raiser Relationship Specialty Start Date End Date Megan Infante MD [address] [facility] [place] [address] PCP - General FAMILY PRACTICE 04/06/16 Piyush Pandey MD [place] Hand Silvering Supervisor CARDIOVASCULAR DISEASE 04/06/16 12/28/23 Sharmila Davis APRN, CHURCH SUPERVISOR-C [address] [facility] [address] [place] [address] NURSE PRACTITIONER 01/04/17 04/03/24 Linda Block MD [address] [phone] [place] Hand Silvering Supervisor CLINICAL CARDIAC ELECTROPHYSIOLOGY 02/08/17 04/12/23 Jeff Grace MD [address] [phone] Consulting Physician INTERNAL MEDICINE 02/20/19 3 Zaki Ortiz MD [address] [address] Consulting Physician PULMONARY DISEASE 07/12/19 documented as of this encounter
--- OUTSIDE RECORDS SUMMARY | 2024-09-03 20:41 | XMS_ITS | Encounter Summary ---
Author Organization [facility] Address [address] [place] [address]. [place] [address] [place] [address] Care Team Providers Care Novelty Twister Tender Name Role Phone Piyush Pandey MD Unavailable Unavailabl e Megan Infante MD Primary Care Provider [phone] Sharmila Davis APRN OYSTER UNLOADER-C Unavailable Linda Block MD Unavailable [phone] Jeff Grace MD Unavailable Zaki Ortiz MD Unavailable [phone] Encounter Details Date Type Department Care Team (Latest Contact Info) Description 01/29/2022 2:32 PM CDT - 01/29/2022 11:59 PM CDT Hospital Encounter [facility] [address] [place] [address] Jacinto Vega MD [address] [place] [address] Discharge Disposition: Home or Self [...] st Contact Info) Description 09/25/2024 2:00 PM CIRCULATION MAN Appointment [facility] [address] [facility] [place] [address] Zayra Powell, HAT FORMER [address] [facility] [place] [address] 10/16/2024 3:30 PM CIRCULATION MAN Office Visit [facility] [address] [facility] [place] [address] Brit Gonázles MD [address]19 [place] [address] documented as of this encounter Procedures Procedure [...] documented as of this encounter Care Teams Novelty Twister Tender Relationship Specialty Start Date End Date Megan Infante MD [address] [facility] [place] [address] PCP - General FAMILY PRACTICE 04/06/16 Piyush Pandey MD [place] [facility] [place] CARDIOVASCULAR DISEASE 04/06/16 12/28/23 Sharmila Davis, CHROME POLISHER, OYSTER UNLOADER-C [address] [place] [address] NURSE PRACTITIONER 01/04/17 04/03/24 Linda Block MD [address] [facility] [address] [place] [phone] [place] [facility] [place] CLINICAL CARDIAC ELECTROPHYSIOLOGY 02/08/17 04/12/23 Jeff Grace MD [address] [facility] [address] [phone] Consulting Physician INTERNAL MEDICINE 02/20/19 3 Zaki Ortiz MD [address] [facility] [address] [phone] Consulting Physician PULMONARY DISEASE 07/12/19 documented as of this encounter
--- OUTSIDE RECORDS SUMMARY | 2024-09-03 20:41 | XMS_ITS | Encounter Summary ---
Author Organization [facility] Address [address] [place] [address]. [place] [address] [place] [address] Care Team Providers Care Manager Of Quality Name Role Phone Piyush Pandey MD Unavailable Unavailabl e Megan Infante MD Primary Care Provider [phone] Sharmila Davis APRN MOLECULAR BIOLOGY PROFESSOR-C Unavailable Linda Block MD Unavailable [phone] Jeff Grace MD Unavailable Zaki Ortiz MD Unavailable [phone] Encounter Details Date Type Department Care Team (Late st Contact Info) Description 01/24/2022 9:07 AM CDT - 01/24/2022 11:59 PM CDT Hospital Encounter [address] [address] Jaya Eastman MD [facility] [place] [address] Discharge Disposition: Home or Self [...] st Contact Info) Description 09/25/2024 2:00 PM EXPERIMENTAL WELDER Appointment [facility] [address] [place], [place] [phone] Ander Zayra Oli, ACADEMIC SUPPORT ASSISTANT [address] [facility] [facility] [address] [place], [place] [address] 10/16/2024 3:30 PM EXPERIMENTAL WELDER Office Visit [facility] [address] [place] [address] Brit Gonzáles MD 619 [place], [place] [address] documented as of this encounter Procedures Procedure Name Priority Date/Time Associated Diagnosis Comments CORONAVIRUS (COVID 19) Routine 01/24/2022 9:12 AM CDT Pre-operative laboratory examination documented in this encounter Results * PRE-SURGICAL/PRE-PROCEDURE CORONAVIRUS (COVID 19) (01/24/2022 9:12 AM CDT) SPEC DESCRIPTION NASAL 01/25/20 9:12 AM CDT [facility] CORONAVIRUS SARS COV 2 PCR (RESP) NEGATIVE NEGATIVE 01/24/2022 6:40 PM CDT [facility] Comment: THE SARS-CoV-2 TEST HAS BEEN AUTHORIZED BY THE FDA UNDER AN EUA FOR USE BY AUTHORIZED LABORATORIES. PERFORMED BY NUCLEIC ACID AMPLIFICATION PCR FIRST TEST UNKNOWN 01/24/2022 9:12 AM CDT [facility] EMPLOYED IN HEALTHCARE NO 01/24/2022 9:12 AM CDT [facility] SYMPTOMATIC DEFINED BY CDC UNKNOWN 01/24/2022 9:12 AM CDT [facility] HOSPITALIZATION STATUS NO 01/24/2022 9:12 AM CDT [facility] PATIENT IN ICU NO 01/24/2022 9:12 AM CDT [facility] RESIDENT OF CONGREGATE CARE NO 01/24/2022 9:12 AM CDT [facility] NASAL STRUCTURE / Unknown 01/24/2022 9:12 AM CDT Kilo Navarro MD MICROBIOLOGY - GENERAL ORDERA BLES Final Result [facility] [address] [place] [address], [facility] [address] [place] [address], documented in this encounter Visit Diagnoses Diagnosis Pre-operative laboratory examination Pre-procedural laboratory examination documented in this encounter Additional Health Concerns Infection Onset Date Last Indicated Resolved Time COVID-19 Rule Out 01/24/2022 01/24/2022 01/24/2022 6:41 PM CDT Assessment Noted Time PHQ-9 Depression Total Score: 0 12/02/19 22 1:18 PM CDT documented as of this encounter Care Teams Manager Of Quality Relationship Specialty Start Date End Date Megan Infante MD [address] [place] [phone] PCP - General FAMILY PRACTICE 04/06/16 Piyush Pandey MD [place] Lime Boiler CARDIOVASCULAR DISEASE 04/06/16 12/28/23 Sharmila Davis, REGIONAL INTERMODAL TRUCK DRIVER, MOLECULAR BIOLOGY PROFESSOR-C [address]2627 [place] [address] NURSE PRACTITIONER 01/04/17 04/03/24 Linda Block MD 619 [facility] 47 [place] [phone] [place] Lime Boiler CLINICAL CARDIAC ELECTROPHYSIOLOGY 02/08/17 04/12/23 Jeff Grace MD [address] [place] [address] Consulting Physician INTERNAL MEDICINE 02/20/19 3 Zaki Ortiz MD [address] [place] [address] Consulting Physician PULMONARY DISEASE 07/12/19 documented as of this encounter
--- OUTSIDE RECORDS SUMMARY | 2024-09-03 20:41 | XMS_ITS | Encounter Summary ---
Author Organization [facility] Address [address] [place] [address]. [place] [address] [place] [address] Care Team Providers Care Milk Tester Name Role Phone Piyush Pandey MD Unavailable Unavailabl e Megan Infante MD Primary Care Provider [phone] Sharmila Davis APRN, VOIP NETWORK TECHNICIAN-C Unavailable Linda Block MD Unavailable [phone] Jeff Grace MD Unavailable Zaki Ortiz MD Unavailable [phone] Reason for Visit * Reason Onset Date Comments Results 12/19/2021 Encounter Details Date Type Department Care Team ([facility] st Contact Info) Description 12/19/2021 Telephone [facility] [address] [place] [address] Sharmila Davis APRN, VOIP NETWORK TECHNICIAN-C [address] [facility] [address] [place] [address] Results Social History Tobacco Use [...] encounter Progress Notes * Sharmila Davis APRN, VOIP NETWORK TECHNICIAN-C - 12/19/2021 4:36 PM CDT Spoke with [...] st Contact Info) Description 09/25/2024 2:00 PM GUN STOCK CHECKER Appointment [facility] [address] [place] [address] Zayra Powell, [facility] [address] [place] [address] 10/16/2024 3:30 PM GUN STOCK CHECKER Office Visit [facility] [address] [place] [address] Brit Gonzáles MD [address]19 [place] [address] documented as of this encounter Results * [...] AMER. 37 <=90 12/19/2021 Sharmila Davis APRN, VOIP NETWORK TECHNICIAN-C LABORATORY Final Result documented in this encounter Visit Diagnoses Diagnosis exterminator use of drug- Primary Encounter for long-term (current) use of other medications documented in this encounter Additional Health Concerns Assessment Noted Time PHQ-9 Depression Total Score: 0 12/02/19 22 1:18 PM CDT documented as of this encounter Care Teams Milk Tester Relationship Specialty Start Date End Date Megan Infante MD [address] [facility] [place] [address] PCP - General FAMILY PRACTICE 04/06/16 Piyush Pandey MD [place] Acoustical Installer CARDIOVASCULAR DISEASE 04/06/16 12/28/23 Sharmila Daivs APRN, VOIP NETWORK TECHNICIAN-C [address] [facility] [address] [place] [phone] NURSE PRACTITIONER 01/04/17 04/03/24 Linda Block MD [address] [facility] [address] [place] [phone] [place] Acoustical Installer CLINICAL CARDIAC ELECTROPHYSIOLOGY 02/08/17 04/12/23 Jeff Grace MD [address] [facility] [address] [place] [phone] Consulting Physician INTERNAL MEDICINE 02/20/19 3 Zaki Ortiz MD [address] [facility] [address] [phone] Consulting Physician PULMONARY DISEASE 07/12/19 documented as of this encounter
--- OUTSIDE RECORDS SUMMARY | 2024-09-03 20:41 | XMS_ITS | Encounter Summary ---
Author Organization [facility] Address [address] [place] [address]. [place] [address] [place] [address] Care Team Providers Care Lay Up Operator Name Role Phone Piyush Pandey MD Unavailable Unavailabl e Megan Infante MD Primary Care Provider [phone] Sharmila Davis APRN OPERATIONS ANALYST-C Unavailable [phone] Linda Block MD Unavailable [phone] Jeff Grace MD Unavailable Zaki Ortiz MD Unavailable [phone] Reason for Visit * Reason Onset Date Comments Results 04/21/2021 Encounter Details Date Type Department Care Team (Late st Contact Info) Description 04/21/2021 Telephone [facility] [address] [address] Damaso Barnes MD [address] [place] [address] Results Social History Tobacco Use [...] Contact Info) Description 09/25/2024 2:00 PM ORE STORAGE DRIER Appointment [facility] [address] [place] [address] Zayra Powell, [facility] [address] [place] [address] 10/16/2024 3:30 PM ORE STORAGE DRIER Office Visit [facility] [address] [place] [address] Brit Gonzáles MD [address] [place] [address] documented as of this encounter Visit Diagnoses Not on filedocumented in this encounter Care Teams Lay Up Operator Relationship Specialty Start Date End Date Megan Infante MD [address] [place] [address] PCP - General FAMILY PRACTICE 04/06/16 Piyush Pandey MD [place] Information Technology Assistant CARDIOVASCULAR DISEASE 04/06/16 12/28/23 Sharmila Davis, PODIATRIC ASSISTANT, OPERATIONS ANALYST-C [address] [place] [address] [address] [place] [address] NURSE PRACTITIONER 01/04/17 04/03/24 Linda Block MD [address] [facility] [address] [place] [phone] [place] Information Technology Assistant CLINICAL CARDIAC ELECTROPHYSIOLOGY 02/08/17 04/12/23 Jeff Grace MD [address] [facility] [address] [place] [address] Consulting Physician INTERNAL MEDICINE 02/20/19 3 Zaki Ortiz MD [address] [facility] [address] [place] [address] Consulting Physician PULMONARY DISEASE 07/12/19 documented as of this encounter
--- OUTSIDE RECORDS SUMMARY | 2024-09-03 20:41 | XMS_ITS | Encounter Summary ---
Author Organization [facility] Address [address] [place] [address]. [place] [address] [place] [address] Care Team Providers Care Healthcare Architect Name Role Phone Piyush Pandey MD Unavailable Unavailabl e Megan Infante MD Primary Care Provider [phone] Sharmila Davis APRN TEST BAKER-C Unavailable [phone] Linda Block MD Unavailable [phone] Jeff Grace MD Unavailable Zaki Ortiz MD Unavailable [phone] Encounter Details Date Type Department Care Team [...] st Contact Info) Description 09/25/2024 2:00 PM TRAPEZE PERFORMER Appointment [facility] [address] [place], [place] [phone] Zayra Powell, CODING COORDINATOR [address] [place] [address] 10/16/2024 3:30 PM TRAPEZE PERFORMER Office Visit [facility] [address] [place] [address] Brit Gonzáles MD [address] [place], [place] [phone] documented as of this encounter Visit Diagnoses Not on filedocumented in this encounter Additional Health Concerns Assessment Noted Time PHQ-9 Depression Total Score: 0 12/02/19 22 1:18 PM CDT documented as of this encounter Care Teams Healthcare Architect Relationship Specialty Start Date End Date Megan Infante MD [address] [facility] [place] [address] PCP - General FAMILY PRACTICE 04/06/16 Piyush Pandey MD [place] Tool Rental Technician CARDIOVASCULAR DISEASE 04/06/16 12/28/23 Sharmila Davis, INJECTION MOLDING PROCESS TECHNICIAN, TEST BAKER-C [address] [facility] [address] [place] [address] NURSE PRACTITIONER 01/04/17 04/03/24 Linda Block MD [address] [facility] [address] [place] [address] [place] Tool Rental Technician CLINICAL CARDIAC ELECTROPHYSIOLOGY 02/08/17 04/12/23 Jeff Grace MD [address] [facility] [address] [phone] Consulting Physician INTERNAL MEDICINE 02/20/19 3 Zaki Ortiz MD [address] [facility] [address] [place] [address] Consulting Physician PULMONARY DISEASE 07/12/19 documented as of this encounter
--- OUTSIDE RECORDS SUMMARY | 2024-09-03 20:41 | XMS_ITS | Encounter Summary ---
Author Organization [facility] Address [address] [place] [address]. [place] [address] [place] [address] Care Team Providers Care Certified Nurse Operating Room Name Role Phone Piyush Pandey MD Unavailable Unavailabl e Megan Infante MD Primary Care Provider [phone] Sharmila Davis APRN COMMERCIAL LINES MANAGER-C Unavailable [phone] Linda Block MD Unavailable [phone] Jeff Grace MD Unavailable Zaki Ortiz MD Unavailable [phone] Encounter Details Date Type Department Care Team [...] 2:00 PM MEAT CUTTING BLOCK REPAIRER Appointment [facility] [address] [place] [address] Zayra Powell, PIN PUSHER [address] [place], [place] [phone] 10/16/2024 3:30 PM MEAT CUTTING BLOCK REPAIRER Office Visit [facility] [facility] [address] [place] [address] Brit Gonzáles MD 619 [place] [address] documented as of this encounter Visit Diagnoses Not on filedocumented in this encounter Additional Health Concerns Infection Onset Date Last Indicated Resolved Time COVID-19 Rule Out 01/24/2022 01/24/2022 01/24/2022 6:41 PM CDT Assessment Noted Time PHQ-9 Depression Total Score: 0 12/02/19 22 1:18 PM CDT documented as of this encounter Care Teams Certified Nurse Operating Room Relationship Specialty Start Date End Date Megan Infante MD [address] [facility] [place] [address] PCP - General FAMILY PRACTICE 04/06/16 Piyush Pandey MD [place] Information Systems Administrator CARDIOVASCULAR DISEASE 04/06/16 12/28/23 Sharmila Davis APRN, COMMERCIAL LINES MANAGER-C [address] [facility] [address] [place] [address] NURSE PRACTITIONER 01/04/17 04/03/24 Linda Block MD [address] [facility] [address] [place] [address] [place] Information Systems Administrator CLINICAL CARDIAC ELECTROPHYSIOLOGY 02/08/17 04/12/23 Jeff Grace MD [address] [place] [address] Consulting Physician INTERNAL MEDICINE 02/20/19 3 Zaki Ortiz MD [address] [place] [address] Consulting Physician PULMONARY DISEASE 07/12/19 documented as of this encounter
--- OUTSIDE RECORDS SUMMARY | 2024-09-03 20:41 | XMS_ITS | Encounter Summary ---
Author Organization [facility] Address [address] [place] [address]. [place] [address] [place] [address] Care Team Providers Care Sorting Machine Attendant Name Role Phone Piyush Pandey MD Unavailable Unavailabl e Megan Infante MD Primary Care Provider [phone] Sharmila Davis APRN SPIRITUAL MINISTER-C Unavailable [phone] Linda Block MD Unavailable [phone] Jeff Grace MD Unavailable Zaki Ortiz MD Unavailable [phone] Reason for Visit * Reason Comments Ankle/foot Pain RIGHT (DOI: 12/28/2021 ) Encounter Details Date Type Department Care Team (Latest Contact Info) Description 01/15/2022 1:00 PM CDT Office Visit [facility] [address] [address] Jacinto [place] MD [address] [place] [address] Ankle/foot Pain (RIGHT (DOI: 12/28/2021)) Social History [...] but not much. He was seen in [place] [facility] approximately 2 weeks after the injury. [...] II (CMS/HCC) ??? Coronary artery disease involving [place] coronary artery of [place] heart without angina pectoris ??? COPD (chronic [...] Navarro MD at [facility] OR ??? HIP ARTHROPLASTY Left [...] needed for Constipation., Disp: , Rfl: ??? Cfmlmterxty-Ogscqefkc-Phhkde 100-62.5-25 MCG/INH AEROSOL POWDER, BREATH ACTIVATED, Inhale [...] of discomfort and I will give him [place] Follow up: Return in about 2 weeks (around 01/29/2022). JACINTO HAMILTON MD documented in this encounter Plan of Treatment Upcoming Encounters Date Type Department Care Team (Late st Contact Info) Description 09/25/2024 2:00 PM SERVICE ELECTRICIAN Appointment [facility] [address] [facility] [facility] [place] [address] Zayra Powell, AIRCRAFT PAINTER APPRENTICE [address] [facility] [place] [address] 10/16/2024 3:30 PM SERVICE ELECTRICIAN Office Visit [facility] [address] [facility] [place] [address] Brit Gonzáles MD 619 [place], [place] [phone] documented as of this encounter Visit Diagnoses Diagnosis Other closed fracture of distal end of right fibula, initial encounter- Primary documented in this encounter Additional Health Concerns Assessment Noted Time PHQ-9 Depression Total Score: 0 12/02/19 22 1:18 PM CDT documented as of this encounter Care Teams Sorting Machine Attendant Relationship Specialty Start Date End Date Megan Infante MD [address] [facility] [place] [address] PCP - General FAMILY PRACTICE 04/06/16 Piyush Pandey MD Gravity Lead Setter CARDIOVASCULAR DISEASE 04/06/16 12/28/23 Sharmila Davis APRN, SPIRITUAL MINISTER-C [address] [facility] [address] [place] [address] NURSE PRACTITIONER 01/04/17 04/03/24 Linda Block MD 6[address] [facility] [address] [place] [address] Gravity Lead Setter CLINICAL CARDIAC ELECTROPHYSIOLOGY 02/08/17 04/12/23 Jeff Grace MD [address] [place] [address] Consulting Physician INTERNAL MEDICINE 02/20/19 3 Zaki Ortiz MD [address] [place] [address] Consulting Physician PULMONARY DISEASE 07/12/19 documented as of this encounter
--- OUTSIDE RECORDS SUMMARY | 2024-09-03 20:41 | XMS_ITS | Encounter Summary ---
Author Organization [facility] Address [facility] [place] [address] [place] [address] Care Team Providers Care Napkin Band Wrapper Name Role Phone Piyush Pandey MD Unavailable Unavailabl e Megan Infante MD Primary Care Provider [phone] Sharmila Davis APRN VETERINARY VIROLOGIST-C Unavailable Linda Block MD Unavailable [phone] Jeff Grace MD Unavailable Zaki Ortiz MD Unavailable [phone] Encounter Details Date Type Department Care Team (Late st Contact Info) Description 01/15/2022 Orders Only [facility] [address] [place] [address], [facility] [address] [place] [address] Jacinot [place] MD [address] [place], [place] [address] Social History Tobacco Use Types Packs/Day Years [...] Contact Info) Description 09/25/2024 2:[address] MUSIC App[address] [facility] [address] [facility] [place] [address] Zayra Powell, BRAND MARKETING COORDINATOR [address] [facility] [place] [address] 10/16/2024 3:30 PM MANAGER MUSIC Office Visit [facility] [address] [facility] [place] [address] Brit Gonzáles MD 619 [place] [address] documented as of this encounter Results * [...] Misael Diaz MD, 01/15/2022 3:09 PM Jacinto [place] MD GENERAL IMAGING Final Result documented in this encounter Visit Diagnoses Diagnosis Acute right ankle pain- Primary Acute right ankle pain documented in this encounter Additional Health Concerns Assessment Noted Time PHQ-9 Depression Total Score: 0 12/02/19 22 1:18 PM CDT documented as of this encounter Care Teams Napkin Band Wrapper Relationship Specialty Start Date End Date Megan Infante MD [address] [facility] [place] [address] PCP - General FAMILY PRACTICE 04/06/16 Piyush Pandey MD [place] Gathering Machine Feeder CARDIOVASCULAR DISEASE 04/06/16 12/28/23 Sharmila Davis APRN, VETERINARY VIROLOGIST-C [address] [facility] [address] [place] [address] NURSE PRACTITIONER 01/04/17 04/03/24 Linda Block MD 6[address] [facility] [address] [place] [address] [place] Gathering Machine Feeder CLINICAL CARDIAC ELECTROPHYSIOLOGY 02/08/17 04/12/23 Jeff Grace MD [address] [place] [address] Consulting Physician INTERNAL MEDICINE 02/20/19 3 Zaki Ortiz MD [address] [place] [address] Consulting Physician PULMONARY DISEASE 07/12/19 documented as of this encounter
--- OUTSIDE RECORDS SUMMARY | 2024-09-03 20:41 | XMS_ITS | Encounter Summary ---
Author Organization [facility] Address [facility] [place] [address] [place] [address] Care Team Providers Care Card Grinder Name Role Phone Piyush Pandey MD Unavailable Unavailabl e Megan Infante MD Primary Care Provider [phone] Sharmila Davis APRN FRONT END ASSISTANT-C Unavailable Linda Block MD Unavailable [phone] Jeff Grace MD Unavailable Zaki Ortiz MD Unavailable [phone] Reason for Visit * Auth/Cert Specialty Diagnoses / Procedures Referred By Yung sequeira Referred To Contact Diagnoses Dysphagia Encounter for screening colonoscopy DYSPHAGIA / SCREENING Procedures UPPER GI ENDOSCOPY,BIOPSY COLONOSCOPY,DIAGNOSTIC EGD WITH BIOPSY COLONOSCOPY Referral ID Status Reason Start Date Expiration Date Visits Re quested Visits Authorized [id number] 1 1 Encounter Details Date Type Department Care Team (Late st Contact Info) Description 01/27/2022 9:04 AM CDT - 01/27/2022 9:[address] [facility] [address] [place] [address] Gloria Navarro MD [address] [place] [address] EGD WITH BIOPSIES AND DILATION Surgery [...] Sedation in Adults Discharge Instructions (Welsh) * Esophageal Dilation (Welsh) * Upper GI Endoscopy Discharge Instructions (Welsh) * Colon Polypectomy Discharge Instructions (W[place]sh) documented in this encounter Medications at [...] by mouth as needed for Constipation. ??? Cylvlcliedq-Drsjytxrn-Tfgosf 100-62.5-25 MCG/INH AEROSOL POWDER, BREATH ACTIVATED Inhale [...] (Incomplete) performed by Gloria Navarro MD at [facility] OR [...] NO PATIENT IN ICU NO RESIDENT OF [facility] NO IMPRESSION: Patient Active Problem List Diagnosis ??? S/P ablation of atrial fibrillation ??? LV dysfunction ??? Essential hypertension ??? Mixed hyperlipidemia ??? Diabetes mellitus, type II (CMS/HCC) ??? Coronary artery disease involving [place] coronary artery of [place] heart without angina pectoris ??? COPD (chronic [...] Contact Info) Description 09/25/2024 2:00 PM SENIOR NURSE MANAGER Appointment [facility] [address] [facility] [place] [address] Zayra Powell, REAL PROPERTY EVALUATOR [address] [facility] [place] [address] 10/16/2024 3:30 PM SENIOR NURSE MANAGER Office Visit [facility] [address] [facility] [place] [address] Brit Gonzáles MD 619 [place], [place] [address] documented as of this encounter Procedures Procedure [...] DESCRIPTION GASTRIC BIOPSY 01/27/2022 9:55 AM CDT [facility] SPECIAL REQUESTS NO SPECIAL REQUEST 01/27/2022 9:55 AM CDT [facility] DIRECT EXAM PRESUMPTIVE NEGATIVE FOR H. PYLORI 01/28/2022 10:18 AM CDT [facility] Tissue specimen (specimen) GASTRIC BIOPSY SPECIMEN / Unknown 01/27/2022 9:21 AM CDT Gloria Navarro MD MICROBIOLOGY - GENERAL ORDERA BLES Final Result [facility] [address] [place] [address], * Colonoscopy (01/27/2022 6:48 AM CDT) Gloria Navarro MD GI PROCEDURE ORDERABLES Final Result * ENDOSCOPY (01/27/2022 6:48 AM CDT) Gloria Navarro MD SCANNING Final Result * Pathology (01/27/2022 12:00 AM CDT) PATHOLOGY [facility] ? Department of Laboratory Medicine ?[address] [facility] ?[place] [address] ? , extension [phone] ? Pathology Report ? Surgical Pathology Report Name: OBIE SIMS ?Specimen #: [id number] Age: 12 1955 (Age: 66) ? Location: [facility] Sex: M ?Procedure Date: 01/27/2022 Hospital #: [id number] ?Date Received: 01/27/2022 Date Reported: 01/28/2022 Provider: [...] Electronically Signed Out ? Taye Martinez MD-PhD [facility] Tissue specimen (specimen) DUODENAL STRUCTURE / Unknown 01/27/2022 9:20 AM CDT Tissue specimen (specimen) STOMACH STRUCTURE / Unknown 01/27/2022 9:22 AM CDT Tissue specimen (specimen) COLON STRUCTURE / Unknown 01/27/2022 9:41 AM CDT us Gloria Navarro MD PATHOLOGY/CYTOLOGY ORDERABLES Final Result [facility] [address] [place] [address], [id number] documented in this encounter Visit Diagnoses Diagnosis [...] documented as of this encounter Care Teams Card Grinder Relationship Specialty Start Date End Date Megan Infante MD [address] [facility] [place] [address] PCP - General FAMILY PRACTICE 04/06/16 Piyush Pandey MD [place] Hvac Service Manager CARDIOVASCULAR DISEASE 04/06/16 12/28/23 Sharmila Davis APRN, FRONT END ASSISTANT-C [address] [phone] NURSE PRACTITIONER 01/04/17 04/03/24 Linda Block MD [address] [facility] [address] [address] [place] Hvac Service Manager CLINICAL CARDIAC ELECTROPHYSIOLOGY 02/08/17 04/12/23 Jeff Grace MD [address] [address] Consulting Physician INTERNAL MEDICINE 02/20/19 3 Zaki Ortiz MD [address] [address] Consulting Physician PULMONARY DISEASE 07/12/19 documented as of this encounter
--- OUTSIDE RECORDS SUMMARY | 2024-09-03 20:41 | XMS_ITS | Encounter Summary ---
Author Organization [facility] Address [facility] [place] [address] [place] [address] Care Team Providers Care Manager Supply Chain Planning Name Role Phone Piyush Pandey MD Unavailable Unavailabl e Megan Infante MD Primary Care Provider [phone] Sharmila Davis APRN, ANAESTHETIC TECHNICIAN-C Unavailable [phone] Linda Block MD Unavailable [phone] Jeff Grace MD Unavailable Zaki Ortiz MD Unavailable [phone] Reason for Referral * Sleep Lab (Routine) - Closed Specialty Diagnoses / Procedures Referred By Yung sequeira Referred To Contact Diagnoses Obstructive sleep apnea (adult) (pediatric) Procedures Limited Channel Unattended (Home Study) (G0399) Damaso Barnes MD [address] [place] [address] Phone: tel: fax: [address] [address] Phone: tel: Referral ID Status Reason Start Date Expiration Date Visits Re quested Visits Authorized [id number] Closed 02/27/2021 03/30/2022 1 1 Reason for Visit * Sleep Lab (Routine) - Closed Specialty Diagnoses / Procedures Referred By Yung sequeira Referred To Contact Diagnoses Obstructive sleep apnea (adult) (pediatric) Procedures Limited Channel Unattended (Home Study) (G0399) Damaso Barnes MD [address] [place] [address] Phone: tel: fax: [facility] [address] [place] [address] Phone: tel: Referral ID Status Reason Start Date Expiration Date Visits Re quested Visits Authorized [id number] Closed 02/27/2021 03/30/2022 1 1 Encounter Details Date Type Department Care Team (Late st Contact Info) Description 05/20/2021 6:53 PM CDT - 05/20/2021 11:59 PM CDT Hospital Encounter [facility] [address] [place] [address] Damaso Barnes MD [address] [place] [address] Discharge Disposition: Home or Self [...] st Contact Info) Description 09/25/2024 2:00 PM SPA RECEPTIONIST Appointment [facility] [address] [place] [address] Zayra Powell FNP [address] [place] [place] [address] 10/16/2024 3:30 PM SPA RECEPTIONIST Office Visit [facility] [place] [address] rBit Gonzáles MD [address] [place] [address] documented as of this encounter Procedures Procedure Name Priority Date/Time Associated Diagnosis Comments LIMITED CHANNEL UNATTENDED (HOME STUDY) Routine 05/20/2021 7:00 PM CDT Obstructive sleep apnea (adult) (pediatric) documented in this encounter Results * Limited Channel Unattended (Home Study) (G0399) (05/20/2021 7:00 PM CDT) Narrative [facility] - 05/20/2021 7:00 PM CDT Damaso [...] MD SLEEP CENTER ORDERABLES F inal Result [facility] [place] [address], documented in this encounter Visit Diagnoses Diagnosis Obstructive sleep apnea (adult) (pediatric) documented in this encounter Care Teams Manager Supply Chain Planning Relationship Specialty Start Date End Date Megan Infante MD [facility] [place] [address] PCP - General FAMILY PRACTICE 04/06/16 Piyush Pandey MD [place] Bowling Pin Setters Installer CARDIOVASCULAR DISEASE 04/06/16 12/28/23 Sharmila Davis, ADJUNCT TEACHER, ANAESTHETIC TECHNICIAN-C [address] [address] NURSE PRACTITIONER 01/04/17 04/03/24 Linda Block MD [address] [facility] [address] [address] [place] Bowling Pin Setters Installer CLINICAL CARDIAC ELECTROPHYSIOLOGY 02/08/17 04/12/23 Jeff Grace MD [address] [facility] [address] [phone] Consulting Physician INTERNAL MEDICINE 02/20/19 3 Zaki Ortiz MD [address] [email or web address] [address] [place] [address] Consulting Physician PULMONARY DISEASE 07/12/19 documented as of this encounter
--- OUTSIDE RECORDS SUMMARY | 2024-09-03 20:41 | XMS_ITS | Encounter Summary ---
Author Organization [facility] Address [address] [place] [address]. [place] [address] [place] [address] Care Team Providers Care Personal Coach Name Role Phone Piyush Pandey MD Unavailable Unavailabl e Megan Infante MD Primary Care Provider [phone] Sharmila Davis APRN COTTON INSPECTOR-C Unavailable Linda Block MD Unavailable [phone] Jeff Grace MD Unavailable Zaki Ortiz MD Unavailable [phone] Encounter Details Date Type Department Care Team (Late st Contact Info) Description 01/24/2022 Orders Only [facility] [address] [place] [address] Kilo Navarro MD [address] [place] [address] Social History Tobacco Use Types [...] Contact Info) Description 09/25/2024 2:00 PM SUPERVISOR TYPE PHOTOGRAPHY Appointment [facility] [address] [place] [address] Zayra Powell, SUPERVISOR CAR AND YARD [address] [place] [address] 10/16/2024 3:30 PM SUPERVISOR TYPE PHOTOGRAPHY Office Visit [facility] [address] [facility] [place] [address] Brit Gonzáles MD [address] [place] [address] documented as of this encounter Results * PRE-SURGICAL/PRE-PROCEDURE CORONAVIRUS (COVID 19) (01/24/2022 9:12 AM CDT) SPEC DESCRIPTION NASAL 01/25/20 9:12 AM CDT [facility] CORONAVIRUS SARS COV 2 PCR (RESP) NEGATIVE NEGATIVE 01/24/2022 6:40 PM CDT [facility] Comment: THE SARS-CoV-2 TEST HAS BEEN AUTHORIZED BY THE FDA UNDER AN EUA FOR USE BY AUTHORIZED LABORATORIES. PERFORMED BY NUCLEIC ACID AMPLIFICATION PCR FIRST TEST UNKNOWN 01/24/2022 9:12 AM CDT [facility] EMPLOYED IN HEALTHCARE NO 01/24/2022 9:12 AM CDT [facility] SYMPTOMATIC DEFINED BY CDC UNKNOWN 01/24/2022 9:12 AM CDT [facility] HOSPITALIZATION STATUS NO 01/24/2022 9:12 AM CDT [facility] PATIENT IN ICU NO 01/24/2022 9:12 AM CDT [facility] RESIDENT OF [facility] NO 01/24/2022 9:12 AM CDT [facility] NASAL STRUCTURE / Unknown 01/24/2022 9:12 AM CDT Kilo Navarro MD MICROBIOLOGY - GENERAL ORDERA BLES Final Result [facility] [address] [place] [address], [facility] [address] [place] [address], documented in this encounter Visit Diagnoses Diagnosis Pre-operative laboratory examination- Primary Pre-procedural laboratory examination documented in this encounter Additional Health Concerns Infection Onset Date Last Indicated Resolved Time COVID-19 Rule Out 01/24/2022 01/24/2022 01/24/2022 6:41 PM CDT Assessment Noted Time PHQ-9 Depression Total Score: 0 12/02/19 22 1:18 PM CDT documented as of this encounter Care Teams Personal Coach Relationship Specialty Start Date End Date Megan Infante MD [address] [place] [address] PCP - General FAMILY PRACTICE 04/06/16 Piyush Pandey MD [place] Gum Machine Operator CARDIOVASCULAR DISEASE 04/06/16 12/28/23 Sharmila Davis, PATIENT COMPANION, COTTON INSPECTOR-C [address] [place] [address] NURSE PRACTITIONER 01/04/17 04/03/24 Linda Block MD [address] [facility] [address] [place] [address] [place] Gum Machine Operator CLINICAL CARDIAC ELECTROPHYSIOLOGY 02/08/17 04/12/23 Jeff Grace MD [address] [place] [address] Consulting Physician INTERNAL MEDICINE 02/20/19 3 Zaki Ortiz MD [address] [place] [address] Consulting Physician PULMONARY DISEASE 07/12/19 documented as of this encounter
--- OUTSIDE RECORDS SUMMARY | 2024-09-03 20:41 | XMS_ITS | Encounter Summary ---
Author Organization [facility] Address [address] [place] [address]. [place] [address] [place] [address] Care Team Providers Care Electrical And Radio Mechanic Name Role Phone Piyush Pandey MD Unavailable Unavailabl e Megan Infante MD Primary Care Provider [phone] Sharmila Davis APRN, NP-C Unavailable Linda Block MD Unavailable [phone] Jeff Grace MD Unavailable Zaki Ortiz MD Unavailable [phone] Reason for Visit * Reason Onset Date Comments Concerns 12/10/2021 Encounter Details Date Type Department Care Team (Late st Contact Info) Description 12/10/2021 Telephone [facility] [address] [place] [address] Piyush Pandey MD Concerns Social History Tobacco [...] Grace pt. Pt will see Sharmila Davis WINCH TRUCK OPERATOR on 12/15/21 9am PHI 5th floor. Penny will fax the most recent office vist note. * Marcella Freitas RN - 12/10/2021 10:57 AM CDT Patient seen by Dr. Grace yesterday in [place]. NO availability in [place] clinic for tomorrow 12/[address] Infante office, spoke with Penny- made aware no availability in [place] for tomorrow States she was told that Dr. Pandey comes to [place] and would have availability in [place] 12/[address] Pandey does not come to [place], next possibility of availability in [place] would be 01/29? OR sooner in [place] Penny will call back after speaking with provider. * Latasha Darden - 12/10/2021 10:16 AM CDT Pt primary called about getting the pt in for a follow up sheyla due to pt retaining water and 10+lbsweight gain pt primary would like to be contacted about working the pt in with dr pandey for [facility] 12/11/21 documented in this encounter Plan of Treatment Upcoming Encounters Date Type Department Care Team (Late st Contact Info) Description 09/25/2024 2:00 PM ELECTROCHEMIST Appointment [facility] [address] [place] [address] Zayra Powell, POSTDOCTORAL SCHOLAR [address] [place] [address] 10/16/2024 3:30 PM ELECTROCHEMIST Office Visit [facility] [address] [facility] [place] [address] Brit Gonzáles MD [address] [place] [address] documented as of this encounter Visit Diagnoses Not on filedocumented in this encounter Additional Health Concerns Assessment Noted Time PHQ-9 Depression Total Score: 0 12/02/19 1:18 PM CDT documented as of this encounter Care Teams Electrical And Radio Mechanic Relationship Specialty Start Date End Date Megan Infante MD [address] [facility] [place] [address] PCP - General FAMILY PRACTICE 04/06/16 Piyush Pandey MD [facility] Policy Analyst CARDIOVASCULAR DISEASE 04/06/16 12/28/23 Sharmila Davis APRN, WINCH TRUCK OPERATOR-C [address] [facility] [address] [place] [address] NURSE PRACTITIONER 01/04/17 04/03/24 Linda Block MD [address] [facility] [address] [place] [address] [facility] Policy Analyst CLINICAL CARDIAC ELECTROPHYSIOLOGY 02/08/17 04/12/23 Jeff Grace MD [address] [place] [address] Consulting Physician INTERNAL MEDICINE 02/20/19 3 Zaki Ortiz MD [address] [place] [address] Consulting Physician PULMONARY DISEASE 07/12/19 documented as of this encounter
--- OUTSIDE RECORDS SUMMARY | 2024-09-03 20:41 | XMS_ITS | Encounter Summary ---
Author Organization [facility] Address [facility] [place] [address] [place] [address] Care Team Providers Care Taxonomy Teacher Name Role Phone Piyush Pandey MD Unavailable Unavailabl e Megan Infante MD Primary Care Provider [phone] Sharmila Davis APRN MARKET RESEARCH ASSISTANT-C Unavailable [phone] Linda Block MD Unavailable [phone] Jeff Grace MD Unavailable Zaki Ortiz MD Unavailable [phone] Reason for Visit * Reason Onset Date Comments Pre-visit Gap Closure 12/01/2021 Encounter Details Date Type Department Care Team (Late st Contact Info) Description 12/01/2021 Telephone [facility] [address] [place] [address] Louie Borges MA Pre-visit Gap [...] patient as a patient advocate for the [facility] Virtual Standard Work Program. You can reach me by phone at [phone] or by email at [email or web address]. documented in this encounter Plan of Treatment Upcoming Encounters Date Type Department Care Team (Late st Contact Info) Description 09/25/2024 2:00 PM TRAFFIC CHECKER Appointment [facility] [address] [place] [address] Zayra Powell, [facility] [address] [place] [address] 10/16/2024 3:30 PM TRAFFIC CHECKER Office Visit [facility] [address] [place] [address] Brit Gonzáles MD [address] [place], [place] [address] documented as of this encounter Visit Diagnoses Not on filedocumented in this encounter Additional Health Concerns Assessment Noted Time PHQ-9 Depression Total Score: 0 12/02/19 22 1:18 PM CDT documented as of this encounter Care Teams Taxonomy Teacher Relationship Specialty Start Date End Date Megan Infante MD [address] [place] [address] PCP - General FAMILY PRACTICE 04/06/16 Piyush Pandey MD [place] Door Assembler CARDIOVASCULAR DISEASE 04/06/16 12/28/23 Sharmila Davis APRN, MARKET RESEARCH ASSISTANT-C [address] [facility] [address] [place] [address] NURSE PRACTITIONER 01/04/17 04/03/24 Linda Block MD [address] [facility] [address] [place] [phone] [place] Door Assembler CLINICAL CARDIAC ELECTROPHYSIOLOGY 02/08/17 04/12/23 Jeff Grace MD [address] [facility] [address] [phone] Consulting Physician INTERNAL MEDICINE 02/20/19 3 Zaki Ortiz MD [address] [facility] [address] [phone] Consulting Physician PULMONARY DISEASE 07/12/19 documented as of this encounter
--- OUTSIDE RECORDS SUMMARY | 2024-09-03 20:41 | XMS_ITS | Encounter Summary ---
Author Organization [facility] Address [address] [place] [address]. [place] [address] [place] [address] Care Team Providers Care Presiding Steward Name Role Phone Piyush Pandey MD Unavailable Unavailabl e Megan Infante MD Primary Care Provider [phone] Sharmila Davis APRN REEL TENDER-C Unavailable [phone] Linda Block MD Unavailable [phone] Jeff Grace MD Unavailable Zaki Ortiz MD Unavailable [phone] Encounter Details Date Type Department Care Team (Latest Contact Info) Description 01/15/2022 12:45 PM CDT - 01/15/2022 11:59 PM CDT Hospital Encounter [facility] [address] [place] [address] Jacinto Vega MD [address] [place] [address] Discharge Disposition: Home or Self [...] st Contact Info) Description 09/25/2024 2:[address] [facility] [address] [facility] [place] [address] Andre Zayra Oli, APPLICATIONS SYSTEMS ANALYST [address] [facility] [place] [address] 10/16/2024 3:30 PM PLUG SORTER Office Visit [facility] [address] [facility] [place] [address] Brit Gonzáles MD [address] [place] [address] documented as of this encounter Procedures Procedure [...] documented as of this encounter Care Teams Presiding Steward Relationship Specialty Start Date End Date Megan Infante MD [address] [facility] [place] [address] PCP - General FAMILY PRACTICE 04/06/16 Piyush Pandey MD [place] [facility] Occupational Therapist CARDIOVASCULAR DISEASE 04/06/16 12/28/23 Sharmila Davis, [place], REEL TENDER-C [address] [facility] [address] [place] [address] NURSE PRACTITIONER 01/04/17 04/03/24 Linda Block MD [address] [place] [address] [place] Acute Care Occupational Therapist CLINICAL CARDIAC ELECTROPHYSIOLOGY 02/08/17 04/12/23 Jeff Grace MD [address] [place] [phone] Consulting Physician INTERNAL MEDICINE 02/20/19 3 Zaki Ortiz MD [address] [place] [phone] Consulting Physician PULMONARY DISEASE 07/12/19 documented as of this encounter
--- OUTSIDE RECORDS SUMMARY | 2024-09-03 20:41 | XMS_ITS | Encounter Summary ---
Author Organization [facility] Address [facility] [place] [address] [place] [address] Care Team Providers Care Scrap Burner Name Role Phone Amauri Pandey MD Unavailable Unavailabl e Megan Infante MD Primary Care Provider [phone] Sharmila Davis APRN, DROP WIRE ALIGNER-C Unavailable Linda Block MD Unavailable [phone] Jeff Grace MD Unavailable Zaki Ortiz MD Unavailable [phone] Reason for Visit * Reason Comments Consult Shortness Of Breath Encounter Details Date Type Department Care Team ([facility] Contact Info) Description 12/15/2021 9:00 AM CDT Office Visit [facility] [address] [place] [address] Sharmila Davis APRN, DROP WIRE ALIGNER-C [address] [facility][1] [address] [place] [address] Consult; Shortness Of Breath Social [...] Echo and appointment with Dr. Pandey in [place] in March. documented in this encounter Progress [...] needed for Constipation., Disp: , Rfl: ??? Eqvjtpcyerl-Wufbqlcot-Ccgyxw 100-62.5-25 MCG/INH AEROSOL POWDER, BREATH ACTIVATED, Inhale [...] Navarro MD at [facility] OR ??? HIP ARTHROPLASTY Left [...] NATRIURETIC PEPTIDE 2. Coronary artery disease involving [place] coronary artery of [place] heart without angina pectorisELECTROCARDIOGRAM (NON MIDMARK ACQUIRED) 3. S/P aortic valve replacement with bioprosthetic valve USE ECHOCARDIOGRAM 4. Chronic atrial fibrillation (CMS/HCC) 5. Essential (primary) hypertension 6. Hyperlipidemia, unspecified hyperlipidemia type Referring Provider: No ref. provider found PCP: MEGAN INFANTE MD documented in this encounter Plan of Treatment Upcoming Encounters Date Type Department Care Team (Late st Contact Info) Description 09/25/2024 2:00 PM LABORER TAN HOUSE Appointment [facility] [address] [place] [address] Zayra Powell FNP [address] [place] [address] 10/16/2024 3:30 PM LABORER TAN HOUSE Office Visit [facility] [address] [place] [address] Brit Gonzáles MD [address] [place] [address] documented as of this encounter Procedures Procedure Name Priority Date/Time Associated Diagnosis Comments ELECTROCARDIOGRAM (NON MIDMARK ACQUIRED) Routine 12/15/2021 9:06 AM CDT Coronary artery disease involving [place] coronary artery of [place] heart without angina pectoris documented in this encounter Results * PRO-BRAIN NATRIURETIC PEPTIDE (12/19/2021) B TYPE NATRIURETIC PEPTIDE 1,617 12/19/2021 Sharmila Davis APRN, DROP WIRE ALIGNER-C LABORATORY Final Result * (ABNORMAL) BASIC METABOLIC PANEL (12/19/2021) SODIUM S/P/B 139 POTASSIUM S/P/B 4.5 CO2 30 CHLORIDE S/P/B 100 GLUCOSE 206 mg/dL CALCIUM S/P/B 9.1 BUN 30 CREATININE S/P/B 1.82(A) 0.7 - 1.3 EGFR NON-AFR. AMER. 37 <=90 12/19/2021 Sharmila Davis APRN, DROP WIRE ALIGNER-C LABORATORY Final Result * ELECTROCARDIOGRAM (NON MIDMARK ACQUIRED) (12/15/2021 9:06 AM CDT) 12/15/2021 9:06 AM CDT Narrative [facility] - 12/16/2021 8:48 AM CDT ? [facility] ?[address] [place], [place] ??[address] ? Test Date: ?2021-12-15 Pat Name: ? OBIE SIMS ?Department: ?? 105 ? Room: ? Gender: ? Male ? Shoe Shanker: ?? : ?1955 ? Requested By: AMAURI PANDEY Order Number: [id number] ?Reading MD: ?? Amauri Pandey ? Measurements Intervals ?[place] ? Rate: ? 91 ? P: ? AR: ? 0 ?QRS: ?-37 QRSD: ? 134 ?T: ?134 QT: ? 406 ? QTc: ?500 ? Interpretive Statements ATRIAL FIBRILLATION LEFT AXIS DEVIATION INTRAVENTRICULAR CONDUCTION DELAY Procedure Note Amauri Pandey MD - 12/16/2021 [facility] [address] [place] [address] Test Date: 2021-12-15 Pat Name: OBIE SIMS Department: 105 Room: Gender: Male Shoe Shanker: : 1955 Requested By: AMAURI PANDEY Order Number: [id number] Reading MD: Amauri Pandey Measurements Intervals [place] Rate: 91 P: AR: 0 QRS: -37 QRSD: 134 T: 134 QT: 406 QTc: 500 Interpretive Statements ATRIAL FIBRILLATION LEFT AXIS DEVIATION INTRAVENTRICULAR CONDUCTION DELAY Amauri Pandey MD PROCEDURES-ORDERABLE NO DEONTE RGE Final Result [facility] documented in this encounter Visit Diagnoses Diagnosis Shortness of breath Coronary artery disease involving [place] coronary artery of [place] heart without angina pectoris S/P aortic valve replacement with bioprosthetic valve Heart valve replaced by other means Chronic atrial fibrillation ([facility]) Atrial fibrillation Essential (primary) hypertension Unspecified essential hypertension Hyperlipidemia, unspecified hyperlipidemia type documented in this encounter Additional Health Concerns Assessment Noted Time PHQ-9 Depression Total Score: 0 12/02/19 22 1:18 PM CDT documented as of this encounter Care Teams Scrap Burner Relationship Specialty Start Date End Date Megan Infante MD [address] [facility] [place] [address] PCP - General FAMILY PRACTICE 04/06/16 Amauri Pandey MD [place] Table Machine Operator CARDIOVASCULAR DISEASE 04/06/16 12/28/23 Sharmila Davis APRN, DROP WIRE ALIGNER-C [address] [facility] [address] [place] [address] NURSE PRACTITIONER 01/04/17 04/03/24 Linda Block MD [address] [place] [address] [place] Table Machine Operator CLINICAL CARDIAC ELECTROPHYSIOLOGY 02/08/17 04/12/23 Jeff Grace MD [address] [place] [address] Consulting Physician INTERNAL MEDICINE 02/20/19 3 Zaki Ortiz MD [address] [place] [address] Consulting Physician PULMONARY DISEASE 07/12/19 documented as of this encounter
--- OUTSIDE RECORDS SUMMARY | 2024-09-03 20:41 | XMS_ITS | Encounter Summary ---
Author Organization [facility] Address [facility] [place] [address] [place] [address] Care Team Providers Care Peoplesoft Business Analyst Name Role Phone Piyush Pandey MD Unavailable Unavailabl e Megan Infante MD Primary Care Provider [phone] Sharmila Davis APRN FINANCIAL COST ANALYST-C Unavailable Linda Block MD Unavailable [phone] Jeff Grace MD Unavailable Zaki Ortiz MD Unavailable [phone] Reason for Visit * Auth/Cert Specialty Diagnoses / Procedures Referred By Yung sequeira Referred To Contact Diagnoses Dysphagia Encounter for screening colonoscopy DYSPHAGIA / SCREENING Procedures UPPER GI ENDOSCOPY,BIOPSY COLONOSCOPY,DIAGNOSTIC EGD WITH BIOPSY COLONOSCOPY Referral ID Status Reason Start Date Expiration Date Visits Re quested Visits Authorized [id number] 1 1 Encounter Details Date Type Department Care Team (Late st Contact Info) Description 01/27/2022 9:13 AM CDT Anesthesia Event [address] [place] [address] Jaya Eastman MD [facility] [place] [address] Anesthesia Record Procedure Summary Procedure [...] (had AVR (bioprosthetic) 2013), (), CAD (No KS, no Stents, No CABG), CHF (most recent [...] st Contact Info) Description 09/25/2024 2:00 PM CONFERENCE SERVICES COORDINATOR Appointment [facility] [address] [place] [address] Zayra Powell, [facility] [address] [place] [address] 10/16/2024 3:30 PM CONFERENCE SERVICES COORDINATOR Office Visit [facility] [place] [address] Brit Gonzáles MD [address] [place] [address] documented as of this encounter Visit Diagnoses [...] documented as of this encounter Care Teams Peoplesoft Business Analyst Relationship Specialty Start Date End Date Megan Infante MD [address] [facility] [place] [address] PCP - General FAMILY PRACTICE 04/06/16 Piyush Pandey MD [place] Senior Report Developer CARDIOVASCULAR DISEASE 04/06/16 12/28/23 Sharmila Davis, [place] ATTENDANT, FINANCIAL COST ANALYST-C [address] [facility] [address] [place] [address] NURSE PRACTITIONER 01/04/17 04/03/24 Linda Block MD [address] [phone] [place] Senior Report Developer CLINICAL CARDIAC ELECTROPHYSIOLOGY 02/08/17 04/12/23 Jeff Grace MD [address] [facility] [address] [phone] Consulting Physician INTERNAL MEDICINE 02/20/19 3 Zaki Ortiz MD [address] [facility] [address] [place] [address] Consulting Physician PULMONARY DISEASE 07/12/19 documented as of this encounter
--- OUTSIDE RECORDS SUMMARY | 2024-09-03 20:41 | XMS_ITS | Encounter Summary ---
Author Organization [facility] Address [facility] [place] [address] [place] [address] Care Team Providers Care Animal Services Officer Name Role Phone Piyush Pandey MD Unavailable Unavailabl e Megan Infante MD Primary Care Provider [phone] Sharmila Davis APRN, PEDIATRIC NURSE PRACTITIONER-C Unavailable Linda lBock MD Unavailable [phone] Jeff Grace MD Unavailable Zaki Ortiz MD Unavailable [phone] Reason for Visit * Reason Onset Date Comments Lab Results 01/02/2022 Encounter Details Date Type Department Care Team (Late st Contact Info) Description 01/02/2022 Telephone [facility] [address] [place] [address] Sharmila Davis APRN, PEDIATRIC NURSE PRACTITIONER-C [address] [facility] [address] [place] [address] Lab Results Social History Tobacco [...] of above recommendations * Sharmila Davis APRN, PEDIATRIC NURSE PRACTITIONER-C - 01/02/2022 11:38 AM CDT Let's keep [...] tight and weeping. Lab results abstracted into [facility] Will message Sharmila Davis NP for recommendations On 12/19/21- documentation from Sharmila- will try one more week on the higher dose furosemide and recheck bmp next week. documented in this encounter Plan of Treatment Upcoming Encounters Date Type Department Care Team (Late st Contact Info) Description 09/25/2024 2:00 PM PRICE CHANGER Appointment [facility] [address] [place] [address] Zayra Powell, TOE TRIMMER [address] [place], [place] [phone] 10/16/2024 3:30 PM PRICE CHANGER Office Visit [facility] [address] [place] [address] Brit Gonzáles MD [address] [place] [address] documented as of this encounter Visit Diagnoses Diagnosis USP use of drug- Primary Encounter for long-term (current) use of other medications Shortness of breath Leg edema Edema documented in this encounter Additional Health Concerns Assessment Noted Time PHQ-9 Depression Total Score: 0 12/02/19 22 1:18 PM CDT documented as of this encounter Care Teams Animal Services Officer Relationship Specialty Start Date End Date Megan Infante MD [address] [place] [address] PCP - General FAMILY PRACTICE 04/06/16 Piyush Pandey MD [place] Commercial Credit Head CARDIOVASCULAR DISEASE 04/06/16 12/28/23 Sharmila Davis APRN, PEDIATRIC NURSE PRACTITIONER-C 6[address] [facility] [address] [place] [address] NURSE PRACTITIONER 01/04/17 04/03/24 Linda Blcok MD [address] [facility] [address] [place] [address] [place] Commercial Credit Head CLINICAL CARDIAC ELECTROPHYSIOLOGY 02/08/17 04/12/23 Jeff Grace MD [address] [facility] [address] [place] [phone] Consulting Physician INTERNAL MEDICINE 02/20/19 3 Zaki Ortiz MD [address] [place] [address] Consulting Physician PULMONARY DISEASE 07/12/19 documented as of this encounter
--- OUTSIDE RECORDS SUMMARY | 2024-09-03 20:41 | XMS_ITS | Encounter Summary ---
Author Organization [facility] Address [address] [place] [address]. [place] [address] [place] [address] Care Team Providers Care Fingerprint Technician Name Role Phone Piyush Pandey MD Unavailable Unavailabl e Megan Infante MD Primary Care Provider [phone] Sharmila Davis APRN BUYERS' AGENT-C Unavailable Linda Block MD Unavailable [phone] Jeff Grace MD Unavailable Zaki Ortiz MD Unavailable [phone] Reason for Visit * Reason Comments Follow Up bilateral leg pain Encounter Details Date Type Department Care Team (Latest Contact Info) Description 12/09/2021 10:30 AM CDT Office Visit [facility] [place] [address] Jeff Grace MD [address] [place], [place] [address] Follow Up (bilateral leg pain) Social History [...] stockings. Patient not wanting to come to [place] for venous incompetency testing. 2. Chronic venous [...] MG/0.4ML Solution, , Disp: , Rfl: ??? Iwwavpgjiql-Opuecqrfo-Vebhkx 100-62.5-25 MCG/INH AEROSOL POWDER, BREATH ACTIVATED, Inhale [...] st Contact Info) Description 09/25/2024 2:00 PM WAREHOUSE PACKAGING SUPERVISOR Appointment [facility] [address] [place], [place] [phone] Zayra Powell, TEAM SPORTS SALES ASSOCIATE [address] [place] [address] 10/16/2024 3:30 PM WAREHOUSE PACKAGING SUPERVISOR Office Visit [facility] [address] [place] [address] Brit Gonzáles MD [address] [place], [place] [address] documented as of this encounter Visit Diagnoses Diagnosis Pain in both lower extremities- Primary Leg edema Edema documented in this encounter Additional Health Concerns Assessment Noted Time PHQ-9 Depression Total Score: 0 12/02/19 22 1:18 PM CDT documented as of this encounter Care Teams Fingerprint Technician Relationship Specialty Start Date End Date Megan Infante MD [address] [place] [address] PCP - General FAMILY PRACTICE 04/06/16 Piyush Pandey MD [place] Director Clinical Pharmacology CARDIOVASCULAR DISEASE 04/06/16 12/28/23 Sharmila Davis APRN, BUYERS' AGENT-C [address] [facility] [address] [place] [phone] NURSE PRACTITIONER 01/04/17 04/03/24 Linda Block MD [address] [facility] [address] [place] [address] [place] Director Clinical Pharmacology CLINICAL CARDIAC ELECTROPHYSIOLOGY 02/08/17 04/12/23 Jeff Grace MD [address] [place] [phone] Consulting Physician INTERNAL MEDICINE 02/20/19 3 Zaki Ortiz MD [address] [facility] [facility] [address] [place] [address] Consulting Physician PULMONARY DISEASE 07/12/19 documented as of this encounter
--- OUTSIDE RECORDS SUMMARY | 2024-09-03 20:41 | XMS_ITS | Encounter Summary ---
Author Organization [facility] Address [address] [place] [address]. [place] [address] [place] [address] Care Team Providers Care Pole Inspector Name Role Phone Piyush Pandey MD Unavailable Unavailabl e Megan Infante MD Primary Care Provider [phone] Sharmila Davis APRN VP PRODUCT MARKETING-C Unavailable [phone] Linda Block MD Unavailable [phone] Jeff Grace MD Unavailable Zaki Ortiz MD Unavailable [phone] Encounter Details Date Type Department Care Team [...] st Contact Info) Description 09/25/2024 2:00 PM SPORTS COMPLEX ATTENDANT Appointment [facility] [address] [place], [place] [phone] Zayra Powell, SHEET METAL WORKER SUPERVISOR [address] [place] [address] 10/16/2024 3:30 PM SPORTS COMPLEX ATTENDANT Office Visit [facility] [address] [place] [address] Brit Gonzáles MD [address] [place], [place] [phone] documented as of this encounter Visit Diagnoses Not on filedocumented in this encounter Additional Health Concerns Assessment Noted Time PHQ-9 Depression Total Score: 0 12/02/19 22 1:18 PM CDT documented as of this encounter Care Teams Pole Inspector Relationship Specialty Start Date End Date Megan Infante MD [address] [facility] [place] [address] PCP - General FAMILY PRACTICE 04/06/16 Piyush Pandey MD [place] Poultry Feed Supervisor CARDIOVASCULAR DISEASE 04/06/16 12/28/23 Sharmila Davis, ASSISTANT CORPORATE SECRETARY, VP PRODUCT MARKETING-C [address] [facility] 47 [place] [address] NURSE PRACTITIONER 01/04/17 04/03/24 Linda Block MD 619 [facility] 47 [place] [address] [place] Poultry Feed Supervisor CLINICAL CARDIAC ELECTROPHYSIOLOGY 02/08/17 04/12/23 Jeff Grace MD 619 [facility] [address] [phone] Consulting Physician INTERNAL MEDICINE 02/20/19 3 Zaki Ortiz MD [address] [place] [address] Consulting Physician PULMONARY DISEASE 07/12/19 documented as of this encounter
--- OUTSIDE RECORDS SUMMARY | 2024-09-03 20:41 | XMS_ITS | Encounter Summary ---
Author Organization [facility] Address [facility] [facility] [place] [address] [place] [address] Care Team Providers Care Accredited Pharmacy Technician Name Role Phone Piyush Pandey MD Unavailable Unavailabl e Megan Infante MD Primary Care Provider [phone] Sharmila Davis APRN CLASSROOM AIDE-C Unavailable [phone] Linda Block MD Unavailable [phone] Jeff Grace MD Unavailable Zaki Ortiz MD Unavailable [phone] Encounter Details Date Type Department Care Team (Late st Contact Info) Description 12/23/2021 Orders Only [facility] [address] [place] [address] Renee Rebolledo LPN Social History [...] st Contact Info) Description 09/25/2024 2:00 PM SAUSAGE STRINGER Appointment [facility] [address] [facility] [place] [address] Zayra Powell, BRASS POLISHER [address] [facility] [address] [place], [place] [address] 10/16/2024 3:30 PM SAUSAGE STRINGER Office Visit [facility] [address] [facility] [place] [address] Brit Gonzáles MD 619 [place], [place] [address] documented as of this encounter Procedures Procedure Name Priority Date/Time Associated Diagnosis Comments BASIC METABOLIC PANEL Routine 12/19/2021 terminal supervisor use of drug documented in this encounter [...] AMER. 37 <=90 12/19/2021 Sharmila Davis APRN, CLASSROOM AIDE-C LABORATORY Final Result documented in this encounter Visit Diagnoses Diagnosis terminal supervisor use of drug Encounter for long-term (current) use of other medications documented in this encounter Additional Health Concerns Assessment Noted Time PHQ-9 Depression Total Score: 0 12/02/19 22 1:18 PM CDT documented as of this encounter Care Teams Accredited Pharmacy Technician Relationship Specialty Start Date End Date Megan Infante MD [address] [facility] [place] [address] PCP - General FAMILY PRACTICE 04/06/16 Piyush Pandey MD [place] Rn Flight CARDIOVASCULAR DISEASE 04/06/16 12/28/23 Sharmila Davis APRN, CLASSROOM AIDE-C [address] [facility] [address] [place] [phone] NURSE PRACTITIONER 01/04/17 04/03/24 Linda Block MD [address] [address] [place] Rn Flight CLINICAL CARDIAC ELECTROPHYSIOLOGY 02/08/17 04/12/23 Jeff Grace MD [address] [address] Consulting Physician INTERNAL MEDICINE 02/20/19 3 Zaki Ortiz MD [address] [address] Consulting Physician PULMONARY DISEASE 07/12/19 documented as of this encounter
--- OUTSIDE RECORDS SUMMARY | 2024-09-03 20:41 | XMS_ITS | Encounter Summary ---
Author Organization [facility] Address [address] [place] [address]. [place] [address] [place] [address] Care Team Providers Care Taper Operator Name Role Phone Piyush Pnadey MD Unavailable Unavailabl e Megan Infante MD Primary Care Provider [phone] Sharmila Daivs APRN BOILING OFF WINDER-C Unavailable [phone] Linda Block MD Unavailable [phone] Jeff Grace MD Unavailable Zaki Ortiz MD Unavailable [phone] Encounter Details Date Type Department Care Team [...] Contact Info) Description 09/25/2024 2:00 PM BRAKE HOLDER Appointment [facility] [address] [place] [address] Zayra Powell, TANGLED YARN WORKER [address] [place] [address] 10/16/2024 3:30 PM BRAKE HOLDER Office Visit [facility] [address] [place] [address] Brit Gonzáles MD 619 [place] [address] documented as of this encounter Visit Diagnoses Not on filedocumented in this encounter Additional Health Concerns Assessment Noted Time PHQ-9 Depression Total Score: 0 12/02/19 22 1:18 PM CDT documented as of this encounter Care Teams Taper Operator Relationship Specialty Start Date End Date Megan Infante MD [address] [facility] [place] [address] PCP - General FAMILY PRACTICE 04/06/16 Piyush Pandey MD [place] Army Helicopter Pilot CARDIOVASCULAR DISEASE 04/06/16 12/28/23 Sharmila Davis APRN, BOILING OFF WINDER-C [address] [place] 673947 [place] [address] NURSE PRACTITIONER 01/04/17 04/03/24 Linda Block MD 619 [facility] [address] [place] [address] [place] Army Helicopter Pilot CLINICAL CARDIAC ELECTROPHYSIOLOGY 02/08/17 04/12/23 Jeff Grace MD 619 [facility] 47 [place] [address] Consulting Physician INTERNAL MEDICINE 02/20/19 3 Zaki Ortiz MD [address] [facility] [address] [place] [address] Consulting Physician PULMONARY DISEASE 07/12/19 documented as of this encounter
--- OUTSIDE RECORDS SUMMARY | 2024-09-03 20:41 | XMS_ITS | Encounter Summary ---
Author Organization [facility] Address [address] [place] [address]. [place] [address] [place] [address] Care Team Providers Care Winch Derrick Operator Name Role Phone Piyush Pandey MD Unavailable Unavailabl e Megan Infante MD Primary Care Provider [phone] Sharmila Davis APRN NET ARCHITECT-C Unavailable [phone] Linda Block MD Unavailable [phone] Jeff Grace MD Unavailable Zaki Ortiz MD Unavailable [phone] Encounter Details Date Type Department Care Team [...] st Contact Info) Description 09/25/2024 2:00 PM AUTO RENTAL CLERK Appointment [facility] [address] [place], [place] [phone] Zayra Powell, LOFT WORKER HEAD [address] [place] [address] 10/16/2024 3:30 PM AUTO RENTAL CLERK Office Visit [facility] [facility] [address] [place] [address] Brit Goználes MD [address] [place], [place] [phone] documented as of this encounter Visit Diagnoses Not on filedocumented in this encounter Additional Health Concerns Assessment Noted Time PHQ-9 Depression Total Score: 0 12/02/19 22 1:18 PM CDT documented as of this encounter Care Teams Winch Derrick Operator Relationship Specialty Start Date End Date Megan Infante MD [address] [facility] [place] [address] PCP - General FAMILY PRACTICE 04/06/16 Piyush Pandey MD [place] Tobacco Wrapping Machine Tender CARDIOVASCULAR DISEASE 04/06/16 12/28/23 Sharmila Davis, BILLIARD TABLE REPAIRER, NET ARCHITECT-C 619 [facility] 47 [place] [address] NURSE PRACTITIONER 01/04/17 04/03/24 Linda Block MD 619 [facility] 47 [place] [address] [place] Tobacco Wrapping Machine Tender CLINICAL CARDIAC ELECTROPHYSIOLOGY 02/08/17 04/12/23 Jeff Grace MD 619 [facility] [address] [phone] Consulting Physician INTERNAL MEDICINE 02/20/19 3 Zaki Ortiz MD [address] [facility] [address] [place] [address] Consulting Physician PULMONARY DISEASE 07/12/19 documented as of this encounter
--- OUTSIDE RECORDS SUMMARY | 2024-09-03 20:41 | XMS_ITS | Encounter Summary ---
Author Organization [facility] Address [address] [place] [address]. [place] [address] [place] [address] Care Team Providers Care Fire Protection Designer Name Role Phone Piyush Pandey MD Unavailable Unavailabl e Megan Infante MD Primary Care Provider [phone] Sharmila Davis APRN COMMUNICATION ANALYST-C Unavailable [phone] Linda Block MD Unavailable [phone] Jeff Grace MD Unavailable Zaki Ortiz MD Unavailable [phone] Encounter Details Date Type Department Care Team [...] st Contact Info) Description 09/25/2024 2:00 PM VENDING MACHINE OPERATOR Appointment [facility] [address] [place] [address] Zayra Powell, BATCH MIXER OPERATOR [address] [place], [place] [address] 10/16/2024 3:30 PM VENDING MACHINE OPERATOR Office Visit [facility] [address] [place] [address] Brit Gonzáles MD [address] [place], [place] [phone] documented as of this encounter Visit Diagnoses Not on filedocumented in this encounter Care Teams Fire Protection Designer Relationship Specialty Start Date End Date Megan Infante MD [address] [place] [address] PCP - General FAMILY PRACTICE 04/06/16 Piyush Pandey MD [place] Paper Interleafer CARDIOVASCULAR DISEASE 04/06/16 12/28/23 Sharmila Davis APRN, COMMUNICATION ANALYST-C 619 [facility] 47 [place] [address] NURSE PRACTITIONER 01/04/17 04/03/24 Linda Block MD 619 [facility] [address] [place] [address] [place] Paper Interleafer CLINICAL CARDIAC ELECTROPHYSIOLOGY 02/08/17 04/12/23 Jeff Grace MD 619 [facility] [address] [place] [address] Consulting Physician INTERNAL MEDICINE 02/20/19 3 Zaki Ortiz MD [address] [place] [address] Consulting Physician PULMONARY DISEASE 07/12/19 documented as of this encounter
--- OUTSIDE RECORDS SUMMARY | 2024-09-03 20:41 | XMS_ITS | Encounter Summary ---
Author Organization [facility] Address [facility] [place] [address] [place] [address] Care Team Providers Care Balance Staff Staker Name Role Phone Piyush Pandey MD Unavailable Unavailabl e Megan Infante MD Primary Care Provider [phone] Sharmila Davis APRN CABLE OPERATORMartyC Unavailable Linda Block MD Unavailable [phone] Jeff Grace MD Unavailable Zaki Ortiz MD Unavailable [phone] Reason for Visit * Reason Comments Home EKG (SCAN) ECG (SCAN) Encounter Details Date Type Department Care Team (Late st Contact Info) Description 01/31/[address] [place] [address] Scanned, Documents Home EKG (SCAN); [...] st Contact Info) Description 09/25/2024 2:00 PM SEWER REPAIRER Appointment [facility] [address] [place] [address] Zayra Powell, AMBULANCE OFFICER [address] [place] [phone] 10/16/2024 3:30 PM SEWER REPAIRER Office Visit [facility] [address] [place] [address] Brit Gonzáles MD 619 [place] [address] documented as of this encounter Procedures Procedure Name Priority Date/Time Associated Diagnosis Comments ECG GENERIC (SCAN ORDER) Routine 01/31/2022 12:00 AM CDT documented in this encounter Results * ECG (01/31/2022 12:00 AM CDT) 01/31/2022 us Documents Scanned SCANNING Final Result [facility] documented in this encounter Visit Diagnoses Not on filedocumented in this encounter Additional Health Concerns Assessment Noted Time PHQ-9 Depression Total Score: 0 12/02/19 22 1:18 PM CDT documented as of this encounter Care Teams Balance Staff Staker Relationship Specialty Start Date End Date Megan Infante MD [address] [place] [address] PCP - General FAMILY PRACTICE 04/06/16 Piyush Pandey MD [place] It Analyst CARDIOVASCULAR DISEASE 04/06/16 12/28/23 Sharmila Davis APRN, CABLE OPERATOR-C [address] [facility] [address] [place] [address] NURSE PRACTITIONER 01/04/17 04/03/24 Linda Block MD 619 E [facility] [address] [address] [place] It Analyst CLINICAL CARDIAC ELECTROPHYSIOLOGY 02/08/17 04/12/23 Jeff Grace MD 619 [address] [facility] [address] [address] Consulting Physician INTERNAL MEDICINE 02/20/19 3 Zaki Ortiz MD [address] [facility] [address] [place] [address] Consulting Physician PULMONARY DISEASE 07/12/19 documented as of this encounter
--- OUTSIDE RECORDS SUMMARY | 2024-09-03 20:41 | XMS_ITS | Encounter Summary ---
Author Organization [facility] Address [address] [place] [address]. [place] [address] [place] [address] Care Team Providers Care Cylinder Checker Name Role Phone Piyush Pandey MD Unavailable Unavailabl e Megan Infante MD Primary Care Provider [phone] Sharmila Davis APRN NEEDLE SETTER-C Unavailable [phone] Linda Block MD Unavailable [phone] Jeff Grace MD Unavailable Zaki Ortiz MD Unavailable [phone] Encounter Details Date Type Department Care [...] Contact Info) Description 09/25/2024 2:00 PM TABLE GAMES DEALER Appointment [facility] [address] [place], [place] [address] Zayra Powell, BLACK TOP SPREADER MACHINE OPERATOR [address] [place] [address] 10/16/2024 3:30 PM TABLE GAMES DEALER Office Visit [facility] [facility] [address] [place] [address] Brit Gonzáles MD [address] [place], [place] [address] documented as of this encounter Visit Diagnoses Not on filedocumented in this encounter Additional Health Concerns Assessment Noted Time PHQ-9 Depression Total Score: 0 12/02/19 22 1:18 PM CDT documented as of this encounter Care Teams Cylinder Checker Relationship Specialty Start Date End Date Megan Infante MD [address] [facility] [place] [address] PCP - General FAMILY PRACTICE 04/06/16 Piyush Pandey MD [place] Sound Equipment Mechanic CARDIOVASCULAR DISEASE 04/06/16 12/28/23 Sharmila Davis, CLINICAL DOCUMENTATION DEVELOPER, NEEDLE SETTER-C 619 [facility] 47 [place] [address] NURSE PRACTITIONER 01/04/17 04/03/24 Linda Block MD 619 [facility] 47 [place] [address] [place] Sound Equipment Mechanic CLINICAL CARDIAC ELECTROPHYSIOLOGY 02/08/17 04/12/23 Jeff Grace MD 619 [facility] [address] [phone] Consulting Physician INTERNAL MEDICINE 02/20/19 3 Zaki Ortiz MD [address] [facility] [address] [place] [address] Consulting Physician PULMONARY DISEASE 07/12/19 documented as of this encounter
--- OUTSIDE RECORDS SUMMARY | 2024-09-03 20:41 | XMS_ITS | Encounter Summary ---
Author Organization [facility] Address [facility] [place] [address] [place] [address] Care Team Providers Care Account Support Associate Name Role Phone Piyush Pandey MD Unavailable Unavailabl e Megan Infante MD Primary Care Provider [phone] Sharmila Davis APRN ASSISTANT COACH-C Unavailable [phone] Linda Block MD Unavailable [phone] Jeff Grace MD Unavailable Zaki Ortiz MD Unavailable [phone] Reason for Referral * Imaging (Routine) - Closed Specialty Diagnoses / Procedures Referred By Yung sequeira Referred To Contact RADIOLOGY Diagnoses Bilateral carotid artery disease, unspecified type (CMS/HCC) Asymptomatic carotid artery stenosis, bilateral Pain in both lower extremities Procedures USV CAROTID DUPLEX ELZA Jeff Grace MD [address] [place] [address] Phone: tel: fax: Referral ID Status Reason Start Date Expiration Date Visits Re quested Visits Authorized [id number] Closed 11/26/2020 12/26/2021 1 1 * Imaging (Routine) - Closed Specialty Diagnoses / Procedures Referred By Yung sequeira Referred To Contact RADIOLOGY Diagnoses Pain in both lower extremities Procedures USV STELLA LTD ELZA Jeff Grace MD [address] [place] [address] Phone: tel: fax: Referral ID Status Reason Start Date Expiration Date Visits Re quested Visits Authorized [id number] Closed 11/26/2020 12/27/2021 1 1 Reason for Visit * Imaging (Routine) - Closed Specialty Diagnoses / Procedures Referred By Contac t Referred To Contact RADIOLOGY Diagnoses Pain in both lower extremities Procedures USV STELLA LTD ELZA Jeff Grace MD [address] [facility] [address] [place] [address] Phone: tel: fax: Referral ID Status Reason Start Date Expiration Date Visits Re quested Visits Authorized [id number] Closed 11/26/2020 12/27/2021 1 1 Encounter Details Date Type Department Care Team (Latest Contact Info) Description 11/25/2021 8:52 AM CDT - 11/25/2021 11:59 PM CDT Hospital Encounter [place] [facility] [address] [place] [address] Jeff Grace MD [address] [place] [address] Discharge Disposition: Home or Self [...] Contact Info) Description 09/25/2024 2:00 PM DOCTOR OF NURSE ANESTHESIA Appointment [facility] [address] [address] Zayra Powell, DENTAL SECRETARY [address] [facility] [place] [address] 10/16/2024 3:30 PM DOCTOR OF NURSE ANESTHESIA Office Visit [facility] [address] [facility] [place] [address] Brit Gonzáles MD 619 [place] [address] documented as of this encounter Procedures Procedure [...] bilateral documented in this encounter Care Teams Account Support Associate Relationship Specialty Start Date End Date Megan Infante MD [address] [facility] [place] [address] PCP - General FAMILY PRACTICE 04/06/16 Piyush Pandey MD [place] Pharmacist Assistant CARDIOVASCULAR DISEASE 04/06/16 12/28/23 Sharmila Davis, SLIP INJECTOR AND APPLICATOR, ASSISTANT COACH-C [address] [facility] [address] [place] [address] NURSE PRACTITIONER 01/04/17 04/03/24 Linda Block MD [address] [address] [place] Pharmacist Assistant CLINICAL CARDIAC ELECTROPHYSIOLOGY 02/08/17 04/12/23 Jeff Grace MD [address] [address] Consulting Physician INTERNAL MEDICINE 02/20/19 3 Zaki Ortiz MD [address] [phone] Consulting Physician PULMONARY DISEASE 07/12/19 documented as of this encounter
--- OUTSIDE RECORDS SUMMARY | 2024-09-03 20:41 | XMS_ITS | Encounter Summary ---
Author Organization [facility] Address [address] [place] [address]. [place] [address] [place] [address] Care Team Providers Care Laminating Machine Operator Helper Name Role Phone Piyush Pandey MD Unavailable Unavailabl e Megan Infante MD Primary Care Provider [phone] Sharmila Davis APRN WORKERS COMPENSATION DEFENSE ATTORNEY-C Unavailable [phone] Linda Block MD Unavailable [phone] Jeff Grace MD Unavailable Zaki Ortiz MD Unavailable [phone] Encounter Details Date Type Department Care Team [...] st Contact Info) Description 09/25/2024 2:00 PM CONTROLLER REPAIRER AND TESTER Appointment [facility] [address] [place], [place] [address] Zayra Powell, GYPSUM ROOFER [address] [place] [address] 10/16/2024 3:30 PM CONTROLLER REPAIRER AND TESTER Office Visit [facility] [address] [place] [address] Brit Gonzáles MD 060 [place], [place] [phone] documented as of this encounter Visit Diagnoses Not on filedocumented in this encounter Additional Health Concerns Assessment Noted Time PHQ-9 Depression Total Score: 0 12/02/19 22 1:18 PM CDT documented as of this encounter Care Teams Laminating Machine Operator Helper Relationship Specialty Start Date End Date Megan Infante MD [address] [facility] [place] [address] PCP - General FAMILY PRACTICE 04/06/16 Piyush Pandey MD [place] Executive Director Global Brand Marketing CARDIOVASCULAR DISEASE 04/06/16 12/28/23 Sharmila Davis, DETAIL SERGEANT, WORKERS COMPENSATION DEFENSE ATTORNEY-C 619 [facility] 47 [place] [address] NURSE PRACTITIONER 01/04/17 04/03/24 Linda Block MD 619 [facility] 47 [place] [address] [place] Executive Director Global Brand Marketing CLINICAL CARDIAC ELECTROPHYSIOLOGY 02/08/17 04/12/23 Jeff Grace MD 619 [facility] [address] [phone] Consulting Physician INTERNAL MEDICINE 02/20/19 3 Zaki Ortiz MD [address] [facility] [address] [place] [address] Consulting Physician PULMONARY DISEASE 07/12/19 documented as of this encounter
--- OUTSIDE RECORDS SUMMARY | 2024-09-03 20:41 | XMS_ITS | Encounter Summary ---
Author Organization [facility] Address [facility] [place] [address] [place] [address] Care Team Providers Care Food And Drink Factory Workers Name Role Phone Piyush Pandey MD Unavailable Unavailabl e Megan Infante MD Primary Care Provider [phone] Sharmila Davis APRN WIRER MAINTENANCE-C Unavailable [phone] Linda Block MD Unavailable [phone] Jeff Grace MD Unavailable Zaki Ortiz MD Unavailable [phone] Reason for Visit * Reason Comments Lab [...] Contact Info) Description 09/25/2024 2:00 PM CREDIT AND COLLECTION MANAGER Appointment [facility] [address] [place] [address] Andre Zayra K, VP ANCILLARY [address] [place], [place] [address] 10/16/2024 3:30 PM CREDIT AND COLLECTION MANAGER Office Visit [facility] [address] [place] [address] Brit Gonzáles MD 619 [place], [place] [phone] documented as of this encounter Procedures Procedure [...] filedocumented in this encounter Care Teams Food And Drink Factory Workers Relationship Specialty Start Date End Date Megan Infante MD [address] [place] [address] PCP - General FAMILY PRACTICE 04/06/16 Piyush Pandey MD [place] Hydrometeorologist CARDIOVASCULAR DISEASE 04/06/16 12/28/23 Sharmila Davis APRN, WIRER MAINTENANCE-C [address] [facility] [address] [place] [address] NURSE PRACTITIONER 01/04/17 04/03/24 Linda Block MD 619 [address] [facility] [address] [phone] [place] Hydrometeorologist CLINICAL CARDIAC ELECTROPHYSIOLOGY 02/08/17 04/12/23 Jeff Grace MD [address] [phone] Consulting Physician INTERNAL MEDICINE 02/20/19 3 Zaki Ortiz MD 619 E [facility] [address] [address] Consulting Physician PULMONARY DISEASE 07/12/19 documented as of this encounter
--- OUTSIDE RECORDS SUMMARY | 2024-09-03 20:41 | XMS_ITS | Encounter Summary ---
Author Organization [facility] Address [address] [place] [address]. [place] [address] [place] [address] Care Team Providers Care Sales Trainee Name Role Phone Piyush Pandey MD Unavailable Unavailabl e Megan Infante MD Primary Care Provider [phone] Sharmila Davis APRN COAL CARRIER-C Unavailable [phone] Linda Block MD Unavailable [phone] Jeff Grace MD Unavailable Zaki Ortiz MD Unavailable [phone] Encounter Details Date Type Department Care Team [...] st Contact Info) Description 09/25/2024 2:00 PM VISUAL EFFECTS EDITOR Appointment [facility] [address] [place], [place] [phone] Zayra Powell, SHINGLE CUTTER [address] [place] [address] 10/16/2024 3:30 PM VISUAL EFFECTS EDITOR Office Visit [facility] [address] [place] [phone] Brit Gonzáles MD [address] [place], [place] [phone] documented as of this encounter Visit Diagnoses Not on filedocumented in this encounter Additional Health Concerns Assessment Noted Time PHQ-9 Depression Total Score: 0 12/02/19 22 1:18 PM CDT documented as of this encounter Care Teams Sales Trainee Relationship Specialty Start Date End Date Megan Infante MD [address] [place] [address] PCP - General FAMILY PRACTICE 04/06/16 Piyush Pandey MD [place] Powerhouse Attendant CARDIOVASCULAR DISEASE 04/06/16 12/28/23 Sharmila Davis, FREIGHT HANDLER, COAL CARRIER-C [address] [facility] [address] [place] [address] NURSE PRACTITIONER 01/04/17 04/03/24 Linda Block MD [address] [facility] [address] [place] [address] [place] Powerhouse Attendant CLINICAL CARDIAC ELECTROPHYSIOLOGY 02/08/17 04/12/23 Jeff Grace MD [address] [facility] [address] [phone] Consulting Physician INTERNAL MEDICINE 02/20/19 3 Zaki Ortiz MD [address] [place] [address] Consulting Physician PULMONARY DISEASE 07/12/19 documented as of this encounter
--- OUTSIDE RECORDS SUMMARY | 2024-09-03 20:41 | XMS_ITS | Encounter Summary ---
Author Organization [facility] Address [facility] [address] [place] [address] Care Team Providers Care Aml Analyst Name Role Phone Piyush Pandey MD Unavailable Unavailabl e Megan Infante MD Primary Care Provider [phone] Sharmila Davis APRN, MATCH MARKER-C Unavailable Linda Block MD Unavailable [phone] Jeff Grace MD Unavailable Zaki Ortiz MD Unavailable [phone] Reason for Visit * Reason Onset Date Comments Record Request 12/15/2021 Encounter Details Date Type Department Care Team (Late st Contact Info) Description 12/15/2021 Telephone [facility] [address] [place] [address] Sharmila Davis APRN, MATCH MARKER-C [address] [facility] [address] [place] [address] Record Request Social History Tobacco [...] to get labs on or Wednesday at [facility] [place] . Did fax orders to to hospital at [phone].Mendez does verbalize understanding. * Sharmila Davis APRN, NP-C - 12/15/2021 11:11 PM CDT I gave him lab orders to be done in [place] and told him we would call and [...] - 12/15/2021 2:20 PM CDT Did call [facility] [place] requesting the most recent CMP or BMP . They will fax results to our office. documented in this encounter Plan of Treatment Upcoming Encounters Date Type Department Care Team (Late st Contact Info) Description 09/25/2024 2:00 PM DIRECTOR OF SOCIAL SERVICES Appointment [facility] [address] [place], [place] [phone] Zayra Powell, PLANT FLOOR AUTOMATION MANAGER [address] [place] [address] 10/16/2024 3:30 PM DIRECTOR OF SOCIAL SERVICES Office Visit [facility] [address] [place] [phone] Brit Gonzáles MD [address] [place], [place] [phone] documented as of this encounter Visit Diagnoses Not on filedocumented in this encounter Additional Health Concerns Assessment Noted Time PHQ-9 Depression Total Score: 0 12/02/19 22 1:18 PM CDT documented as of this encounter Care Teams Aml Analyst Relationship Specialty Start Date End Date Megan Infanet MD [address] [facility] [place] [phone] PCP - General FAMILY PRACTICE 04/06/16 Piyush Pandey MD [place] Glass Calibrator CARDIOVASCULAR DISEASE 04/06/16 12/28/23 Sharmila Davis, FIRE TENDER, MATCH MARKER-C 6[address] [facility] 47 [place] [address] NURSE PRACTITIONER 01/04/17 04/03/24 Linda Block MD [address] [facility] [address] [place] [address] [place] Glass Calibrator CLINICAL CARDIAC ELECTROPHYSIOLOGY 02/08/17 04/12/23 Jeff Grace MD [address] [facility] [address] [phone] Consulting Physician INTERNAL MEDICINE 02/20/19 3 Zaki Ortiz MD [address] [facility] [facility] [address] [place] [address] Consulting Physician PULMONARY DISEASE 07/12/19 documented as of this encounter
--- OUTSIDE RECORDS SUMMARY | 2024-09-03 20:42 | XMS_ITS | Encounter Summary ---
Author Organization [facility] Address [facility]6 [facility] [place] [address] [place] [address] Care Team Providers Care Unscrambler Name Role Phone Piyush Pandey MD Unavailable Unavailabl e Megan Infante MD Primary Care Provider [phone] Sharmila Davis APRN, BASTING CLEANER-C Unavailable [phone] Linda Block MD Unavailable [phone] Jeff Grace MD Unavailable Zaki Ortiz MD Unavailable [phone] Reason for Referral * Imaging (Routine) - Closed Specialty Diagnoses / Procedures Referred By Contac t Referred To Contact Diagnoses Shortness of breath Procedures Six Minute Walk (31410) Damaso Barnes MD [address] [place] [address] Phone: tel: fax: [address] [address] Phone: tel: Referral ID Status Reason Start Date Expiration Date Visits Re quested Visits Authorized [id number] Closed 11/03/2020 12/04/2021 1 1 * (Routine) - Closed Specialty Diagnoses / Procedures Referred By Contac t Referred To Contact Diagnoses Shortness of breath Procedures Complete PFT (pre/post Vanlue, Lung Vol, Diff Capacity) (51773, 52322, 27652, 47058) Damaso Barnes MD [address] [place] [address] Phone: tel: fax: Referral ID Status Reason Start Date Expiration Date Visits Re quested Visits Authorized [id number] Closed 11/03/2020 12/04/2021 1 1 Reason for Visit * (Routine) - Closed Specialty Diagnoses / Procedures Referred By Contac t Referred To Contact Diagnoses Shortness of breath Procedures Complete PFT (pre/post Vanlue, Lung Vol, Diff Capacity) (19361, 99040, 24753, 98808) Damaso Barnes MD [address] [place] [address] Phone: tel: fax: Referral ID Status Reason Start Date Expiration Date Visits Re quested Visits Authorized [id number] Closed 11/03/2020 12/04/2021 1 1 Encounter Details Date Type Department Care Team (Late st Contact Info) Description 03/26/2021 10:55 AM CDT - 03/26/2021 11:59 PM CDT Hospital Encounter [facility] [address] [facility] [place] [address] Damaso Barnes MD [address] [place] [address] Discharge Disposition: Home or Self [...] Calculated ERV is 700 cc. Diffusing capacity: Blackford of phase 3 indicates measurement of diffusing [...] Contact Info) Description 09/25/2024 2:00 PM HOG MAN Appointment [facility] [facility] [place] [address] Zayra Powell, DRILL BIT SHARPENER [address] [facility] [place] [address] 10/16/2024 3:30 PM HOG MAN Office Visit [facility] [place] [address] Brit Gonzáles MD [address] [place] [address] documented as of this encounter Procedures Procedure Name Priority Date/Time Associated Diagnosis Comments SIX MINUTE WALK Routine 03/26/2021 11:00 AM CDT Shortness of breath PULMONARY FUNCTION TEST Routine 03/26/2021 11:00 AM CDT Shortness of breath documented in this encounter Results * Six Minute Walk (17884) (03/26/2021 11:00 AM CDT) Narrative [facility] - 03/26/2021 11:00 AM CDT Damaso [...] suboptimal cardiopulmonary conditioning of the patient. us Damaso Barnes MD PFT ORDERABLES Final Res ult [facility] [address] [place] [address], * Complete PFT (pre/post César, Lung Vol, Diff Capacity) (86824, 01615, 55912, 05394) (03/26/2021 11:00 AM CDT) Narrative [facility] - 03/26/2021 11:00 AM CDT Damaso [...] ??Calculated ERV is 700 cc. Diffusing capacity: Blackford of phase 3 indicates measurement of diffusing [...] Barnes MD PFT ORDERABLES Final Res ult [facility] [address] [place] [address], documented in this encounter Visit Diagnoses Diagnosis [...] puffs documented in this encounter Care Teams Unscrambler Relationship Specialty Start Date End Date Megan Infante MD [address] [facility] [place] [address] PCP - General FAMILY PRACTICE 04/06/16 Piyush Pandey MD [place] Sole Sewer Hand CARDIOVASCULAR DISEASE 04/06/16 12/28/23 Sharmila Davis, PHYSICIAN ASST, BASTING CLEANER-C [address] [facility] [address] [place] [address] NURSE PRACTITIONER 01/04/17 04/03/24 Linda Block MD [address] [facility] [address] [address] [place] Sole Sewer Hand CLINICAL CARDIAC ELECTROPHYSIOLOGY 02/08/17 04/12/23 Jeff Grace MD [address] [facility] [address] [phone] Consulting Physician INTERNAL MEDICINE 02/20/19 3 Zaki Ortiz MD [address] [facility] [address] [place] [address] Consulting Physician PULMONARY DISEASE 07/12/19 documented as of this encounter
--- OUTSIDE RECORDS SUMMARY | 2024-09-03 20:42 | XMS_ITS | Encounter Summary ---
Author Organization [facility] Address [facility] [place] [address] [place] [address] Care Team Providers Care Livestock Ranch Hand Name Role Phone Piyush Pandey MD Unavailable Unavailabl e Megan Infante MD Primary Care Provider [phone] Sharmila Davis APRN PROJECTION TECHNICIAN-C Unavailable [phone] Linda Block MD Unavailable [phone] Jeff Grace MD Unavailable Zaki Ortiz MD Unavailable [phone] Reason for Visit * Imaging (Routine) - Closed Specialty Diagnoses / Procedures Referred By Yung sequeira Referred To Contact RADIOLOGY Diagnoses Pulmonary hypertension ([facility]/HCC [facility]/HCC) Procedures USE ECHOCARDIOGRAM W CON USE ECHOCARDIOGRAM Damaso Barnes MD [address] [place] [address] Phone: tel: fax: Referral ID Status Reason Start Date Expiration Date Visits Re quested Visits Authorized [id number] Closed 04/06/2021 05/07/2022 1 1 Encounter Details Date Type Department Care Team (Late st Contact Info) Description 04/18/2021 1:11 PM CDT - 04/18/2021 11:59 PM CDT Hospital Encounter [facility] [address] [place] [address] Damaso Barnes MD [address] [place] [address] Discharge Disposition: Home or Self [...] st Contact Info) Description 09/25/2024 2:00 PM MAGISTRATE ASSISTANT Appointment [facility] [address] [place] [address] Zayra Powell, ARMATURE VARNISHER [address] [facility] [place] [address] 10/16/2024 3:30 PM MAGISTRATE ASSISTANT Office Visit [facility] [facility] [address] [place] [address] Brit Gonzáles MD [address] [place] [address] documented as of this encounter Procedures Procedure Name Priority Date/Time Associated Diagnosis Comments USE ECHOCARDIOGRAM W CON Routine 021 2:14 PM CDT Pulmonary hypertension ([facility]/HCC [facility]/HCC) documented in this encounter Results [...] Arm documented in this encounter Care Teams Livestock Ranch Hand Relationship Specialty Start Date End Date Megan Infante MD [address] [place] [address] PCP - General FAMILY PRACTICE 04/06/16 Piyush Pandey MD [place] Job Printer Apprentice CARDIOVASCULAR DISEASE 04/06/16 12/28/23 Sharmila Davis, COMMERCIAL CONSTRUCTION PROJECT MANAGER, PROJECTION TECHNICIAN-C [address] [facility] [address] [phone] NURSE PRACTITIONER 01/04/17 04/03/24 Linda Block MD [address] [phone] [place] Job Printer Apprentice CLINICAL CARDIAC ELECTROPHYSIOLOGY 02/08/17 04/12/23 Jeff Grace MD [address] [address] Consulting Physician INTERNAL MEDICINE 02/20/19 3 Zaki Ortiz MD [address] [address] Consulting Physician PULMONARY DISEASE 07/12/19 documented as of this encounter
--- OUTSIDE RECORDS SUMMARY | 2024-09-03 20:42 | XMS_ITS | Encounter Summary ---
Author Organization [facility] Address [address] [place] [address]. [place] [address] [place] [address] Care Team Providers Care Cena Name Role Phone Piyush Pandey MD Unavailable Unavailabl e Megan Infante MD Primary Care Provider [phone] Sharmila Davis APRN INTELLECTUAL PROPERTY MANAGER-C Unavailable [phone] Linda Block MD Unavailable [phone] Jeff Grace MD Unavailable Zaki Ortiz MD Unavailable [phone] Encounter Details Date Type Department Care Team [...] st Contact Info) Description 09/25/2024 2:00 PM HOT PLATE PLYWOOD PRESS OPERATOR Appointment [facility] [address] [place] [address] Zayra Powell, MANAGER OF CASE [address] [place] [address] 10/16/2024 3:30 PM HOT PLATE PLYWOOD PRESS OPERATOR Office Visit [facility] [address] [place] [address] Brit Gonzáles MD [address] [place] [address] documented as of this encounter Visit Diagnoses Not on filedocumented in this encounter Additional Health Concerns Infection Onset Date Last Indicated Resolved Time COVID-19 Rule Out 02/08/2021 02/08/2021 02/08/2021 9:06 PM CDT documented as of this encounter Care Teams Cena Relationship Specialty Start Date End Date Megan Infante MD [address] [facility] [place] [address] PCP - General FAMILY PRACTICE 04/06/16 Piyush Pandey MD [place] Chief Credit Officer CARDIOVASCULAR DISEASE 04/06/16 12/28/23 Sharmila Davis, MANAGER CT, INTELLECTUAL PROPERTY MANAGER-C [address] [facility] [address] [place] [address] NURSE PRACTITIONER 01/04/17 04/03/24 Linda Block MD [address] [facility] [address] [place] [address] [place] Chief Credit Officer CLINICAL CARDIAC ELECTROPHYSIOLOGY 02/08/17 04/12/23 Jeff Grace MD [address] [facility] [address] [place] [address] Consulting Physician INTERNAL MEDICINE 02/20/19 3 Zaki Ortiz MD [address] [place] [address] Consulting Physician PULMONARY DISEASE 07/12/19 documented as of this encounter
--- OUTSIDE RECORDS SUMMARY | 2024-09-03 20:42 | XMS_ITS | Encounter Summary ---
Author Organization [facility] Address [facility] [place] [address] [place] [address] Care Team Providers Care Apple Turner Name Role Phone Piyush Pandey MD Unavailable Unavailabl e Megan Infante MD Primary Care Provider [phone] Sharmila Davis APRN, PRODUCTION BOW MAKER-C Unavailable [phone] Linda Block MD Unavailable [phone] Jeff Grace MD Unavailable Zaki Ortiz MD Unavailable [phone] Reason for Referral * Imaging (Routine) - Closed Specialty Diagnoses / Procedures Referred By Contac t Referred To Contact Diagnoses Shortness of breath Procedures Six Minute Walk ([address]) Enoch Barnes MD [address] [place] [address] Phone: tel: fax: [address] [address] Phone: tel: Referral ID Status Reason Start Date Expiration Date Visits Re quested Visits Authorized [id number] Closed 11/03/2020 12/04/2021 1 1 * (Routine) - Closed Specialty Diagnoses / Procedures Referred By Contac t Referred To Contact Diagnoses Shortness of breath Procedures Complete PFT (pre/post [place], Lung Vol, Diff Capacity) (03675, 40861, 71292, 08199) Enoch Barnes MD [address] [place] [address] Phone: tel: fax: Referral ID Status Reason Start Date Expiration Date Visits Re quested Visits Authorized [id number] Closed 11/03/2020 12/04/2021 1 1 Reason for Visit * Reason Comments New Patient Pulm. HTN * Consultation (Routine) - Closed Specialty Diagnoses / Procedures Referred By Contac t Referred To Contact SLEEP & RESPIRATORY CARE Diagnoses Pulmonary hypertension ([facility]) Sleep apnea Piyush Pandey MD Prabhu, Manjeshwar B, MD [address] [place] [address] Phone: tel: fax: Referral ID Status Reason Start Date Expiration Date V isits Requested Visits Authorized [id number] Closed Specialty Services 10/23/2020 11/23/2021 100 100 Encounter Details Date Type Department Care Team (Late st Contact Info) Description 10/30/2020 3:20 PM EMPLOYMENT OFFICER Office Visit [facility] [address] [address] Enoch Barnes MD [address] [place] [address] New Patient (Pulm. HTN) Social [...] COVID-19? No / Unsure 10/30/2020 2:44 PM EMPLOYMENT OFFICER documented as of this encounter Last Filed Vital Signs Vital Sign Reading Time Taken Comments Blood Pressure 136/72 10/30/2020 2:50 PM EMPLOYMENT OFFICER Pulse 78 10/30/2020 2:50 PM EMPLOYMENT OFFICER Temperature - - Respiratory Rate 20 10/30/2020 2:50 PM EMPLOYMENT OFFICER Oxygen Saturation 95% 10/30/2020 2:50 PM EMPLOYMENT OFFICER Inhaled Oxygen Concentration - - Weight 93.1 kg (205 lb 3.2 oz) 10/30/2020 2:50 P M EMPLOYMENT OFFICER Height 170.2 cm (5' 7 ) 10/30/2020 2:50 PM EMPLOYMENT OFFICER Body Mass Index 32.14 10/30/2020 2:50 PM EMPLOYMENT OFFICER documented in this encounter Progress Notes * [...] sprays by Each Nare route daily. ??? Buxawcodtlx-Qlbjzdpkw-Oxiowt 100-62.5-25 MCG/INH AEROSOL POWDER, BREATH ACTIVATED Inhale [...] patient go to for their test Answer: [facility] [address] Order Specific Question: What site in [facility] will the patient want their study/test? Answer: [facility] Order Specific Question: Reason for Exam Answer: [...] st Contact Info) Description 09/25/2024 2:00 PM EMPLOYMENT OFFICER Appointment [facility] [address] [place] [address] Zayra Powell, SCALLOP DREDGER [address] [place] [address] 10/16/2024 3:30 PM EMPLOYMENT OFFICER Office Visit [facility] [place] [address] Brit Gonzáles MD [address] [place] [address] documented as of this encounter Results * Six Minute Walk (313[address]) (03/26/2021 11:00 AM CDT) Narrative [facility] - 03/26/2021 11:00 AM CDT [...] Barnes MD PFT ORDERABLES Final Res ult [facility] [address] [place] [address], * Complete PFT (pre/post [place]és[place], Lung Vol, Diff Capacity) (02696, 42470, 11449, 45351) (03/26/2021 11:00 AM CDT) Narrative [facility] - 03/26/2021 11:00 AM CDT Enohc Barnes MD ? 03/28/2021 ??8:45 AM Mr. [...] ??Calculated ERV is 700 cc. Diffusing capacity: [place] of phase 3 indicates measurement of diffusing [...] Barnes MD PFT ORDERABLES Final Res ult [facility] [address] [place] [address], * XR CHEST PA+LAT (02/18/2021 12:27 PM [...] * (ABNORMAL) PROTIME/INR, VENOUS (10/30/2020 3:45 PM EMPLOYMENT OFFICER) PROTIME 41.7(H) 9.4 - 12.5 SEC 10/30/2020 4:02 PM EMPLOYMENT OFFICER [facility] INR 3.7(H) 0.9 - 1.1 10/30/2020 4:02 PM EMPLOYMENT OFFICER [facility] 10/30/2020 3:45 PM EMPLOYMENT OFFICER us Enoch Barnes MD LABORATORY Final Res ult [facility] [address] [place] [address], * LDH, LACTATE DEHYDROGENASE (10/30/2020 3:45 PM EMPLOYMENT OFFICER) LDH 176 85 - 227 UNITS/L 10/30/2020 4:45 PM EMPLOYMENT OFFICER [facility] 10/30/2020 3:45 PM EMPLOYMENT OFFICER us Enoch Barnes MD LABORATORY Final Res ult Performing Organization Address City/[facility]/ZIP Co de Phone Number [facility] [address] [place] [address], * (ABNORMAL) SED RATE, ERYTHROCYTE (ESR) (10/30/2020 3:45 PM EMPLOYMENT OFFICER) ESR 47(H) 0 - 20 MM/HR 10/30/2020 4:40 PM EMPLOYMENT OFFICER [facility] Comment:NOTE: ANEMIA, IF PRE SENT, MAY CAUSE AN ELEVATED SEDIMENTATION RATE. 10/30/2020 3:45 PM EMPLOYMENT OFFICER us Enoch Barnes MD LABORATORY Final Res ult Performing Organization Address [facility] Co de Phone Number [facility] [address] [place] [address], * RETICULOCYTE CT, AUTO (10/30/2020 3:45 PM EMPLOYMENT OFFICER) RETICULOCYTE COUNT 1.7 0.7 - 2.3 % 10/30/2020 4:03 PM EMPLOYMENT OFFICER [facility] ABSOLUTE RETICULOCYTE 0.07 0.03 - 0.11 x10'6/uL 10/30/2020 4:03 PM EMPLOYMENT OFFICER [facility] IMMATURE RETIC FRACTION 12.3 2.3 - 13.4 % 10/30/2020 4:03 PM EMPLOYMENT OFFICER [facility] RETIC HGB 33.3 28.0 - 35.0 PG 10/30/2020 4:03 PM EMPLOYMENT OFFICER [facility] 10/30/2020 3:45 PM EMPLOYMENT OFFICER us Enoch Barnes MD LABORATORY Final Res ult Performing Organization Address City/[facility]/ZIP Co de Phone Number [facility] [address] [place] [address], * (ABNORMAL) CBC, AUTO, NO DIFF (10/30/2020 3:45 PM EMPLOYMENT OFFICER) WBC 9.1 4.5 - 10.8 x10'3/uL 10/30/2020 4:03 PM EMPLOYMENT OFFICER [facility] RBC 4.46(L) 4.50 - 6.10 x10'6/uL 10/30/2020 4:03 PM EMPLOYMENT OFFICER [facility] HGB 12.2(L) 13.0 - 18.0 G/DL 10/30/2020 4:03 PM EMPLOYMENT OFFICER [facility] HCT 39.4 37.0 - 52.0 % 10/30/2020 4:03 PM EMPLOYMENT OFFICER [facility] MCV 88.3 78.0 - 100.0 FL 10/30/2020 4:03 PM EMPLOYMENT OFFICER [facility] MCH 27.4 27.0 - 31.0 PG 10/30/2020 4:03 PM [facility] MCHC 31.0(L) 33.0 - 36.0 G/DL 10/30/2020 4:03 PM [facility] RDW 14.2 11.5 - 14.5 % 10/30/2020 4:03 PM [facility] PLT 236 150 - 350 x10'3/uL 10/30/2020 4:03 PM [facility] MPV 10.0 7.4 - 10.4 FL 10/30/2020 4:03 PM [facility] 10/30/2020 3:45 PM EMPLOYMENT OFFICER us Enoch Barnes MD LABORATORY Final Res ult [facility] [address] [place] [address], documented in this encounter Visit Diagnoses Diagnosis Shortness of breath- Primary Pulmonary hypertension (CMS/HCC HHS/HCC) Other chronic pulmonary heart diseases Anemia, chronic disease Anemia of other chronic disease Anticoagulated Encounter for long-term (current) use of anticoagulants Obstructive sleep apnea (adult) (pediatric) Pulmonary hypertension (CMS/HCC HHS/HCC) Other chronic pulmonary heart diseases Shortness of breath documented in this encounter Care Teams Apple Turner Relationship Specialty Start Date End Date Megan Infante MD [address] [place] [address] PCP - General FAMILY PRACTICE 04/06/16 Piyush Pandey MD [employer] Dial Printer CARDIOVASCULAR DISEASE 04/06/16 12/28/23 Sharmila Davis APRN, PRODUCTION BOW MAKER-C [address] [facility] [address] [place] [phone] NURSE PRACTITIONER 01/04/17 04/03/24 Linda Block MD [address] [address] [employer]inter CLINICAL CARDIAC ELECTROPHYSIOLOGY 02/08/17 04/12/23 Jeff Grace MD [address] [address] Consulting Physician INTERNAL MEDICINE 02/20/19 3 Zaki Ortiz MD [address] [phone] Consulting Physician PULMONARY DISEASE 07/12/19 documented as of this encounter
--- OUTSIDE RECORDS SUMMARY | 2024-09-03 20:42 | XMS_ITS | Encounter Summary ---
Author Organization [facility] Address [address] [place] [address]. [place] [address] [place] [address] Care Team Providers Care Grid Trimmer Name Role Phone Piyush Pandey MD Unavailable Unavailabl e Megan Infante MD Primary Care Provider [phone] Sharmila Davis APRN RAIL CAR MAINTENANCE MECHANIC-C Unavailable Linda Block MD Unavailable [phone] Jeff Grace MD Unavailable Zaki Ortiz MD Unavailable [phone] Encounter Details Date Type Department Care Team (Late st Contact Info) Description 02/18/2021 11:50 AM CDT - 02/18/2021 11:58 AM CDT Hospital Encounter [facility] [address] [place] [address] Jacquie Martel, PA-C [address] [place] [address] Discharge Disposition: Home or Self [...] st Contact Info) Description 09/25/2024 2:00 PM POCKETED SPRING ASSEMBLER Appointment [facility] [address] [place] [address] Zayra Powell, RABBIT BREEDER [address] [place] [address] 10/16/2024 3:30 PM POCKETED SPRING ASSEMBLER Office Visit [facility] [address] [place] [phone] Brit Gonzáles MD [address] [place], [place] [address] documented as of this encounter Procedures Procedure Name Priority Date/Time Associated Diagnosis Comments PROTHROMBIN TIME, VENOUS Routine 02/18/2021 12:06 PM CDT Atrial fibrillation status post cardioversion ([facility] HHS/HCC) Type 2 diabetes mellitus treated without insulin ([facility] HHS/HCC) BASIC METABOLIC PANEL Routine 02/18/2021 12:06 PM CDT Atrial fibrillation status post cardioversion ([facility]/HCC HHS/HCC) Type 2 diabetes mellitus treated without insulin ([facility] HHS/HCC) documented in this encounter Results * (ABNORMAL) BASIC METABOLIC PANEL (02/18/2021 12:06 PM CDT) SODIUM S/P/B 140 136 - 145 MMOL/L 02/18/2021 12:20 PM CDT [facility] POTASSIUM S/P/B 4.7 3.5 - 5.1 MMOL/L 02/18/2021 12:20 PM CDT [facility] CHLORIDE S/P/B 101 98 - 107 MMOL/L 02/18/2021 12:20 PM CDT [facility] CO2 30.8 21.0 - 32.0 MMOL/L 02/18/2021 12:20 PM T [facility] GLUCOSE 177(H) 70 - 99 MG/DL 02/18/2021 12:20 PM T [facility] Comment: FASTING GLUCOSE 100 TO 125 MG/DL IS CONSISTENT WITH IMPAIRED FASTING GLUCOSE. FASTING GLUCOSE >125 MG/DL IS CONSISTENT WITH DIABETES. RANDOM GLUCOSE >200 MG/DL WITH HYPERGLYCEMIC SYMPTOMS IS CONSISTENT WITH DIABETES. PER ADA GUIDELINES BUN 20 6 - 24 MG/DL 02/18/2021 12:20 PM T [facility] CREATININE S/P/B 1.37(H) 0.70 - 1.30 MG/DL 02/18/2021 12:20 PM T [facility] CALCIUM S/P/B 9.4 8.4 - 10.5 MG/DL 02/18/2021 12:20 PM [facility] ANION GAP 8.2 5.0 - 15.0 MMOL/L 02/18/2021 12:20 PM T [facility] OSMOLALITY (CALC) 297 MOSM/KG 021 12:20 PM T [facility] Comment:REFERENCE RANGE NOT ESTABLISHED EGFR NON-AFR. AMER. 53(L) >89 ML/MIN/1. 73 M2 02/18/2021 12:20 PM [facility] EGFR AFR. AMER. 62(L) >89 ML/MIN/1. 73 M2 02/18/2021 12:20 PM [facility] GFR NOTES GFR REFERENCE S: 02/18/2021 12:20 PM [facility] Comment: THE ESTIMATED GFR IS [...] LABORATORY Final Resul t Performing Organization Address [facility] Co de Phone Number [facility] [address] [place] [address], * (ABNORMAL) PROTIME/INR, VENOUS (02/18/2021 12:06 PM CDT) PROTIME 30.6(H) 9.4 - 12.5 SEC 02/18/2021 12:18 PM CDT [facility] INR 2.7(H) 0.9 - 1.1 02/18/2021 12:18 PM CDT [facility] 02/18/2021 12:0 6 PM CDT Jacquie REBOLLEDO-C LABORATORY Final Resul t Performing Organization Address [facility] de Phone Number [facility] [address] [place] [address], documented in this encounter Visit Diagnoses Diagnosis Atrial fibrillation status post cardioversion ([facility] HHS/HCC) Cardiac complications Type 2 diabetes mellitus treated without insulin ([facility] HHS/[facility]) documented in this encounter Care Teams Grid Trimmer Relationship Specialty Start Date End Date Megan Infante MD [address] [facility] [place] [phone] PCP - General FAMILY PRACTICE 04/06/16 Piyush Pandey MD [employer] Director CARDIOVASCULAR DISEASE 04/06/16 12/28/23 Sharmila Davis, LABOR TRAINER, RAIL CAR MAINTENANCE MECHANIC-C [address] [facility] [address] [place] [phone] NURSE PRACTITIONER 01/04/17 04/03/24 Linda Block MD [address] [place] [address] [employer] Director CLINICAL CARDIAC ELECTROPHYSIOLOGY 02/08/17 04/12/23 Jeff Grace MD [address] [facility] [address] [place] [address] Consulting Physician INTERNAL MEDICINE 02/20/19 3 Zaki Ortiz MD [address] [facility] [address] [place] [address] Consulting Physician PULMONARY DISEASE 07/12/19 documented as of this encounter
--- OUTSIDE RECORDS SUMMARY | 2024-09-03 20:42 | XMS_ITS | Encounter Summary ---
Author Organization [facility] Address [facility] [facility] [address] [place] [address] Care Team Providers Care Telegraph Repeater Technician Name Role Phone Piyush Pandey MD Unavailable Unavailabl e Megan Infante MD Primary Care Provider [phone] Sharmila Davis APRN CREATIVE PERFUMER-C Unavailable [phone] Linda Block MD Unavailable [phone] Jeff Grace MD Unavailable Zaki Ortiz MD Unavailable [phone] Reason for Visit * Auth/Cert Specialty Diagnoses / Procedures Referred By Yung sequeira Referred To Contact Diagnoses DYSPHAGIA, HISTORY OF POLYPS Procedures UPPER GI ENDOSCOPY,BIOPSY COLONOSCOPY,DIAGNOSTIC EGD COLONOSCOPY DIAGNOSTIC WITH/WITHOUT SPECIMEN BRUSH/WASH Referral ID Status Reason Start Date Expiration Date Visits Re quested Visits Authorized [id number] 1 1 Encounter Details Date Type Department Care Team (Late st Contact Info) Description 03/18/2021 9:56 AM CDT - 03/18/2021 10:33 AM CDT [facility] [place] [facility] [address] [place] [address] Gloria Navarro MD [address] [place] [address] EGD with biopsies, polypectomy, and dilation [...] * Moderate Sedation in Adults Discharge Instructions ([place]guillan) * Gastritis Discharge Instructions (Anguillan) documented in this encounter Medications at Time [...] I83.893 ??? enoxaparin 40 MG/0.4ML Solution ??? Tkqemvkvpbb-Dixuliqaw-Kdbvjt 100-62.5-25 MCG/INH AEROSOL POWDER, BREATH ACTIVATED Inhale [...] II (CMS/HCC) ??? 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 COPD (chronic [...] Contact Info) Description 09/25/2024 2:00 PM COMMERCIAL INSTALLER Appointment [facility] [address] [place] [address] Zayra Powell FNP [address] [place] [address] 10/16/2024 3:30 PM COMMERCIAL INSTALLER Office Visit [facility] [address] [place] [address] Brit Gonzáles MD [address] [place] [address] documented as of this encounter Procedures Procedure [...] DESCRIPTION GASTRIC BIOPSY 03/18/2021 10:50 AM CDT [facility] SPECIAL REQUESTS NO SPECIAL REQUEST 03/18/2021 10:50 AM CDT [facility] DIRECT EXAM PRESUMPTIVE NEGATIVE FOR H. PYLORI 03/18/2021 3:28 PM CDT [facility] Tissue specimen (specimen) GASTRIC BIOPSY SPECIMEN / Unknown 03/18/2021 10:16 AM CDT us Gloria Navarro MD MICROBIOLOGY - GENERAL ORDERA BLES Final Result [facility] [address] [place] [address], * Pathology (03/18/2021 12:00 AM CDT) PATHOLOGY [facility] ? Department of Laboratory Medicine ?[address] ?[place] [address] ? , extension [phone] ? Pathology Report ? Surgical Pathology Report Name: OBIE SIMS Florentino ?Specimen #: [id number] Age: 12 1955 (Age: 65) ? [facility] ?Procedure Date: 03/18/2021 Hospital #: [id number] ?Date Received: 03/19/2021 Date Reported: 03/21/2021 Provider: [...] Signed Out ? C. Luis Banegas M.D. [facility] Tissue specimen (specimen) STOMACH STRUCTURE / Unknown 03/18/2021 10:17 AM CDT Tissue specimen (specimen) STOMACH STRUCTURE / Unknown 03/18/2021 10:18 AM CDT us Gloria Navarro MD PATHOLOGY/CYTOLOGY ORDERABLES Final Result [facility] [address] [place] [address], [id number] documented in this encounter Visit Diagnoses Not [...] RN) documented in this encounter Care Teams Telegraph Repeater Technician Relationship Specialty Start Date End Date Megan Infante MD [address] [place] [address] PCP - General FAMILY PRACTICE 04/06/16 Piyush Pandey MD [employer] Retailer CARDIOVASCULAR DISEASE 04/06/16 12/28/23 Sharmila Davis APRN, CREATIVE PERFUMER-C [address] [address] NURSE PRACTITIONER 01/04/17 04/03/24 Linda Block MD [address] [phone] [employer] CLINICAL CARDIAC ELECTROPHYSIOLOGY 02/08/17 04/12/23 Jeff Grace MD [address] [address] Consulting Physician INTERNAL MEDICINE 02/20/19 3 Zaki Ortiz MD [address] [facility] [address] [phone] Consulting Physician PULMONARY DISEASE 07/12/19 documented as of this encounter
--- OUTSIDE RECORDS SUMMARY | 2024-09-03 20:42 | XMS_ITS | Encounter Summary ---
Author Organization [facility] Address [address] [place] [address]. [place] [address] [place] [address] Care Team Providers Care Container Coordinator Name Role Phone Piyush Pandey MD Unavailable Unavailabl e Megan Infante MD Primary Care Provider [phone] Sharmila Davis APRN PSYCH NP-C Unavailable [phone] Linda Block MD Unavailable [phone] Jeff Grace MD Unavailable Zaki Ortiz MD Unavailable [phone] Encounter Details Date Type Department Care Team [...] COVID-19? No / Unsure 10/30/2020 2:44 PM COTTON CLASSER AIDE documented as of this encounter Plan of Treatment Upcoming Encounters Date Type Department Care Team (Late st Contact Info) Description 09/25/2024 2:00 PM COTTON CLASSER AIDE Appointment [facility] [address] [place] [address] Zayra Powell, TOOL GRINDER OPERATOR EXTERNAL [address] [place], [place] [phone] 10/16/2024 3:30 PM COTTON CLASSER AIDE Office Visit [facility] [address] [place] [address] Brit Gonzáles MD [address] [place], [place] [phone] documented as of this encounter Visit Diagnoses Not on filedocumented in this encounter Care Teams Container Coordinator Relationship Specialty Start Date End Date Megan Infante MD [address] [place] [address] PCP - General FAMILY PRACTICE 04/06/16 Piyush Pandey MD [employer] Specialist CARDIOVASCULAR DISEASE 04/06/16 12/28/23 Sharmila Davis, COATING INSPECTOR, PSYCH NP-C [address] [facility] [address] [place] [phone] NURSE PRACTITIONER 01/04/17 04/03/24 Linda Block MD [address] [facility] [address] [place] [phone] [employer] Specialist CLINICAL CARDIAC ELECTROPHYSIOLOGY 02/08/17 04/12/23 Jeff Grace MD [address] [facility] [address] [place] [address] Consulting Physician INTERNAL MEDICINE 02/20/19 3 Zaki Ortiz MD [address] [facility] [address] [place] [phone] Consulting Physician PULMONARY DISEASE 07/12/19 documented as of this encounter
--- OUTSIDE RECORDS SUMMARY | 2024-09-03 20:42 | XMS_ITS | Encounter Summary ---
Author Organization [facility] Address [address] [place] [address]. [place] [address] [place] [address] Care Team Providers Care Program Director Air Talent Name Role Phone Piyush Pandey MD Unavailable Unavailabl e Megan Infante MD Primary Care Provider [phone] Sharmila Davis APRN COLLAR FUSER-C Unavailable Linda Block MD Unavailable [phone] Jeff Grace MD Unavailable Zaki Ortiz MD Unavailable [phone] Encounter Details Date Type Department Care Team (Late st Contact Info) Description 10/02/2020 Orders Only [facility] [address] [place] [address] Piyush Pandey MD Social History Tobacco Use [...] COVID-19? No / Unsure 09/10/2020 7:25 AM BOARDING SPECIALIST documented as of this encounter Plan of Treatment Upcoming Encounters Date Type Department Care Team (Late st Contact Info) Description 09/25/2024 2:00 PM BOARDING SPECIALIST Appointment [facility] [address] [place] [address] Andre Zayra K, DENTAL SECRETARY [address] [place] [address] 10/16/2024 3:30 PM BOARDING SPECIALIST Office Visit [facility] [address] [place] [address] Brit Gonzáles MD [address] [place] [address] documented as of this encounter Results * PRE-SURGICAL/PRE-PROCEDURE CORONAVIRUS (COVID 19) (10/05/2020 8:14 AM BOARDING SPECIALIST) CORONAVIRUS SARS COV 2 PCR (RESP) NOT DETECTED NOT DETECTED 10/06/2020 11:37 AM BOARDING SPECIALIST [facility] Comment: A Not Detected (negative) test result [...] providers and patients using the following websites: https://www.The Smartphone Physical.StyleSeat/home/Covid-19/HCP/QuestIVD/fact- sheet.html https://www.The Smartphone Physical.com/home/Covid-19/Patients/ QuestIVD/fact-sheet.html This test has been authorized by the FDA under an Emergency Use Authorization (EUA) for use by authorized laboratories. Due to the current public health emergency, [facility] is receiving a high volume of samples [...] about COVID-19 can be found at the [facility] website: www.Sparkroom/Covid19. Test performed at [facility] [id number] [place] [address] ??[phone] Director: REEMA ORDAZ DO,MPH FIRST TEST UNKNOWN 10/05/2020 8:13 AM BOARDING SPECIALIST [facility] EMPLOYED IN HEALTHCARE NO 10/05/2020 8:13 AM BOARDING SPECIALIST [facility] SYMPTOMATIC DEFINED BY CDC UNKNOWN 10/05/2020 8:13 AM BOARDING SPECIALIST [facility] DATE OF SYMPTOM ONSET UNKNOWN 10/05/2020 8:16 AM BOARDING SPECIALIST [facility] HOSPITALIZATION STATUS NO 10/05/2020 8:13 AM BOARDING SPECIALIST [facility] PATIENT IN ICU NO 10/05/2020 8:13 AM BOARDING SPECIALIST [facility] RESIDENT OF [facility] CARE NO 10/05/2020 8:13 AM BOARDING SPECIALIST [facility] PATIENT'S RACE WHITE OR 10/05/2020 8:13 AM BOARDING SPECIALIST [facility] ETHNICITY NONHISPANIC 10/05/2020 8:13 AM BOARDING SPECIALIST [facility] SOURCE (QST) NASOPHARYNGEAL SWAB 10/05/2020 8:13 AM BOARDING SPECIALIST [facility] NASOPHARYNGEAL SWAB / Unknown 10/05/2020 8:14 AM BOARDING SPECIALIST us Piyush Pandey MD MICROBIOLOGY - GENERAL CLARISSA MCARTHUR Final Result [facility] [address] [employer] [address], [facility] [address] [place] [address], documented in this encounter Visit Diagnoses Diagnosis Pre-operative laboratory examination- Primary Pre-procedural laboratory examination documented in this encounter Care Teams Program Director Air Talent Relationship Specialty Start Date End Date Megan Infante MD [address] [place] [phone] PCP - General FAMILY PRACTICE 04/06/16 Piyush Pandey MD [place] Driller'S Assistant CARDIOVASCULAR DISEASE 04/06/16 12/28/23 Sharmila Davis APRN, COLLAR FUSER-C [address] [phone] NURSE PRACTITIONER 01/04/17 04/03/24 Linda Block MD [address] [phone] [place] Driller'S Assistant CLINICAL CARDIAC ELECTROPHYSIOLOGY 02/08/17 04/12/23 Jeff Grace MD [address] [phone] Consulting Physician INTERNAL MEDICINE 02/20/19 3 Zaki Oritz MD [address] [phone] Consulting Physician PULMONARY DISEASE 07/12/19 documented as of this encounter
--- OUTSIDE RECORDS SUMMARY | 2024-09-03 20:42 | XMS_ITS | Encounter Summary ---
Author Organization [facility] Address [address] [place] [address]. [place] [address] [place] [address] Care Team Providers Care Senior Manager Name Role Phone Piyush Pandey MD Unavailable Unavailabl e Megan Infante MD Primary Care Provider [phone] Sharmila Davis APRN SALES AND SERVICE ASSOCIATE-C Unavailable Linda Blokc MD Unavailable [phone] Jeff Grace MD Unavailable Zaki Ortiz MD Unavailable [phone] Reason for Visit * Reason Onset Date Comments Advice 11/03/2020 Encounter Details Date Type Department Care Team (Late st Contact Info) Description 11/03/2020 Telephone [facility] Multispecialty [address] [address] Damaso Barnes MD [address] [place] [address] Advice Social History Tobacco Use [...] COVID-19? No / Unsure 10/30/2020 2:44 PM STATISTICAL TYPIST documented as of this encounter Progress Notes [...] st Contact Info) Description 09/25/2024 2:00 PM STATISTICAL TYPIST Appointment [facility] [address] [place] [address] Zayra Powell, CHILD WELFARE MANAGER [address] [place] [address] 10/16/2024 3:30 PM STATISTICAL TYPIST Office Visit [facility] [address] [place] [phone] Brit Gonzáles MD [address] [place] [address] documented as of this encounter Visit Diagnoses Not on filedocumented in this encounter Care Teams Senior Manager Relationship Specialty Start Date End Date Megan Infante MD [address] [place] [address] PCP - General FAMILY PRACTICE 04/06/16 Piyush Pandey MD [place] Transportation Driver CARDIOVASCULAR DISEASE 04/06/16 12/28/23 Sharmila Davis, HOUSING INSPECTORS, SALES AND SERVICE ASSOCIATE-C [address] [facility] [address] [place] [phone] NURSE PRACTITIONER 01/04/17 04/03/24 Linda Block MD [address] [address] [place] Transportation Driver CLINICAL CARDIAC ELECTROPHYSIOLOGY 02/08/17 04/12/23 Jeff Grace MD [address] [address] Consulting Physician INTERNAL MEDICINE 02/20/19 3 Zaki Ortiz MD [address] [phone] Consulting Physician PULMONARY DISEASE 07/12/19 documented as of this encounter
--- OUTSIDE RECORDS SUMMARY | 2024-09-03 20:42 | XMS_ITS | Encounter Summary ---
Author Organization [facility] Address [address] [place] [address]. [place] [address] [place] [address] Care Team Providers Care Harpoon Engagement Planning Operator Name Role Phone Piyush Pandey MD Unavailable Unavailabl e Megan Infante MD Primary Care Provider [phone] Sharmila Davis APRN PATIENT SERVICE SPECIALIST-C Unavailable [phone] Linda Block MD Unavailable [phone] Jeff Grace MD Unavailable Zaki Ortiz MD Unavailable [phone] Encounter Details Date Type Department Care Team [...] st Contact Info) Description 09/25/2024 2:00 PM MOLECULAR BIOLOGY DIRECTOR Appointment [facility] [address] [place] [address] Zayra Powell, ROOM ATTENDANT [address] [place], [place] [phone] 10/16/2024 3:30 PM MOLECULAR BIOLOGY DIRECTOR Office Visit [facility] [address] [place] [address] Brit Gonzáles MD [address] [place], [place] [phone] documented as of this encounter Visit Diagnoses Not on filedocumented in this encounter Care Teams Harpoon Engagement Planning Operator Relationship Specialty Start Date End Date Megan Infante MD [address] [place] [address] PCP - General FAMILY PRACTICE 04/06/16 Piyush Pandey MD [place] [facility] Social Worker CARDIOVASCULAR DISEASE 04/06/16 12/28/23 Sharmila Davis APRN, PATIENT SERVICE SPECIALIST-C [address] [facility][1] [address] [place] [phone] NURSE PRACTITIONER 01/04/17 04/03/24 Linda Block MD [address] [facility] [address] [place] [phone] [place] Addiction Social Worker CLINICAL CARDIAC ELECTROPHYSIOLOGY 02/08/17 04/12/23 Jeff Grace MD [address] [facility] [address] [place] [phone] Consulting Physician INTERNAL MEDICINE 02/20/19 3 Zaki Ortiz MD [address] [place] [phone] Consulting Physician PULMONARY DISEASE 07/12/19 documented as of this encounter
--- OUTSIDE RECORDS SUMMARY | 2024-09-03 20:42 | XMS_ITS | Encounter Summary ---
Author Organization [facility] Address [address] [place] [address]. [place], [place] [address] [place] [address] Care Team Providers Care Orthopedic Radiologic Technologist Name Role Phone Amauri Pandey MD Unavailable Unavailabl e Megan Infante MD Primary Care Provider [phone] Sharmila Davis APRN, NP-C Unavailable [phone] Linda Block MD Unavailable [phone] Jeff Grace MD Unavailable Zaki Ortiz MD Unavailable [phone] Reason for Referral * Imaging (Routine) - Closed Specialty Diagnoses / Procedures Referred By Yung sequeira Referred To Contact RADIOLOGY Diagnoses Mitral regurgitation Procedures USE TRANSESOPHAGEAL ECHO Amauri Pandey MD [place] [address] [place] [address] Phone: tel: fax: Referral ID Status Reason Start Date Expiration Date Visits Re quested Visits Authorized [id number] Closed 09/24/2020 10/22/2021 1 1 NESS SERVICES SALES REPRESENTATIVE Reason for Visit * Imaging (Routine) - Closed Specialty Diagnoses / Procedures Referred By Yung sequeira Referred To Contact RADIOLOGY Diagnoses Mitral regurgitation Procedures USE TRANSESOPHAGEAL ECHO mAauri Pandey MD [place] [address] [place] [address] Phone: tel: fax: Referral ID Status Reason Start Date Expiration Date Visits Re quested Visits Authorized [id number] Closed 09/24/2020 10/22/2021 1 1 Encounter Details Date Type Department Care Team (Latest Contact Info) Description 10/10/2020 6:37 AM BUSINESS SERVICES SALES REPRESENTATIVE - 10/10/2020 11:59 PM BUSINESS SERVICES SALES REPRESENTATIVE Hospital Encounter [facility] Non Invasive Cardiology - [address] [address] Amauri Pandey MD Discharge Disposition: Home or [...] COVID-19? No / Unsure 10/10/2020 6:37 AM BUSINESS SERVICES SALES REPRESENTATIVE documented as of this encounter Last Filed Vital Signs Vital Sign Reading Time Taken Comments Blood Pressure 129/71 10/10/2020 9:05 AM BUSINESS SERVICES SALES REPRESENTATIVE Pulse 72 10/10/2020 9:05 AM BUSINESS SERVICES SALES REPRESENTATIVE Temperature 36.2 ??C (97.2 ??F) 10/10/2020 7:07 AM CS T Respiratory Rate 20 10/10/2020 9:05 AM BUSINESS SERVICES SALES REPRESENTATIVE Oxygen Saturation 96% 10/10/2020 9:05 AM BUSINESS SERVICES SALES REPRESENTATIVE Inhaled Oxygen Concentration - - Weight 95.6 kg (210 lb 12.2 oz) 10/10/2020 7:07 AM BUSINESS SERVICES SALES REPRESENTATIVE Height 170.2 cm (5' 7 ) 10/10/2020 7:07 AM BUSINESS SERVICES SALES REPRESENTATIVE Body Mass Index 33.01 10/10/2020 7:07 AM BUSINESS SERVICES SALES REPRESENTATIVE documented in this encounter Discharge Instructions * Attachments The following attachments cannot be sent through Care Everywhere. * Moderate Sedation in Adults Discharge Instructions (Serbian) * Transesophageal Echocardiogram (Serbian) documented in this encounter Medications at Time [...] Amauri Pandey MD - 10/10/2020 8:00 AM BUSINESS SERVICES SALES REPRESENTATIVE Sedation Pre-Evaluation Reviewed the following in the [...] Stridor is absent Other findings: Distended abdomen. NESS SERVICES SALES REPRESENTATIVE * Brief Op Note - Amauri Pandey [...] None Anesthesia: Procedural and Topical Surgeon: Katherin Washateria Attendant: None Estimated Blood Loss: None AMAURI PANDEY MD Date: 10/10/2020 Time: 8:54 AM NESS SERVICES SALES REPRESENTATIVE documented in this encounter Plan of Treatment Upcoming Encounters Date Type Department Care Team (Late st Contact Info) Description 09/25/2024 2:00 PM BUSINESS SERVICES SALES REPRESENTATIVE Appointment [facility] [address] [place] [address] Zayra Powell, MOSAIC LAYER [address] [place] [address] 10/16/2024 3:30 PM BUSINESS SERVICES SALES REPRESENTATIVE Office Visit [facility] [address] [place] [address] Brit Gonzáles MD [address] [place] [address] documented as of this encounter Procedures Procedure Name Priority Date/Time Associated Diagnosis Comments USE TRANSESOPHAGEAL ECHO Routine 10/10/2020 8:56 AM BUSINESS SERVICES SALES REPRESENTATIVE Mitral regurgitation PROTHROMBIN TIME, VENOUS Routine 10/10/2020 6:47 AM BUSINESS SERVICES SALES REPRESENTATIVE Mitral regurgitation documented in this encounter Results * USE TRANSESOPHAGEAL ECHO (10/10/2020 8:56 AM BUSINESS SERVICES SALES REPRESENTATIVE) Anatomical Region Laterality Modality Cardiac Echocardiogram, Cardiac Electrophysiology, Cardiac Electrophysiology 10/10/2020 7:49 AM BUSINESS SERVICES SALES REPRESENTATIVE Narrative 10/13/2020 5:32 PM BUSINESS SERVICES SALES REPRESENTATIVE ?Transesophageal Echocardiography Report Pat.Name: ??OBIE SIMS ?Pat.ID: ?[id number] ? St.Date: ?? 10/10/2020 ? Refer.MD: ??[id number], AMAURI PANDEY Exam Time: 7:49:00 AM ? Study Type:TRANSESOPHAGEAL ECHO (NEMO) Height: ?66.93in ? Weight: ?209lb ? BSA: ? 2.06 m2 ?Age: ??1955,65Y ? Sex: ? MALE ?BP: ?132/74 ? HR: ?86 bpm ?Sonogrphr: Arsenio Singleton RD ? Pat. Stat.:Outpatient ?CPT - 4: ?[id number] ? Reason for Study:Mitral regurgitation History / [...] Transesophageal Echocardiography Report Pat.Name: OBIE SIMS Pat.ID: [id number] St.Date: 10/10/2020 Refer.: [id number] ROBERT Exam Time: 7:49:00 AM Study Type:TRANSESOPHAGEAL ECHO (NEMO) Height: 66.93in Weight: 209lb BSA: 2.06 m2 Age: 11 1955,65Y Sex: MALE BP: 132/74 HR: 86 bpm Sonogrphr: Arsenio Singleton [facility] Pat. Stat.:Outpatient CPT - 4: [id number] Reason for Study:Mitral regurgitation History / Clinical:Shortness [...] * (ABNORMAL) PROTIME/INR, VENOUS (10/10/2020 6:47 AM BUSINESS SERVICES SALES REPRESENTATIVE) PROTIME 34.7(H) 10.2 - 12.9 SEC 10/10/2020 7:04 AM BUSINESS SERVICES SALES REPRESENTATIVE [facility] INR 3.0(H) 0.9 - 1.1 10/10/2020 7:04 AM BUSINESS SERVICES SALES REPRESENTATIVE [facility] 10/10/2020 6:47 AM BUSINESS SERVICES SALES REPRESENTATIVE Amauri Pandey MD LABORATORY Final Resul t Performing Organization Address City/State/[facility] Co de Phone Number [facility] [address] [place] [address], [id number] documented in this encounter Visit Diagnoses Diagnosis Mitral regurgitation Mitral valve disorders documented in this encounter Administered Medications Inactive Administered Medications - up to 3 most recent administrations Medication Order MAR Action Action Date Dose Rate Site benzocaine 20 % (HURRICAINE) mouth solution Code/trauma/sedation medication, Starting on Taisha 10/10/20 at 0807, Until Taisha 10/10/20 at 0807 Given 10/10/2020 8:07 AM BUSINESS SERVICES SALES REPRESENTATIVE 2 sprays lidocaine (XYLOCAINE) 2 % jelly Code/trauma/sedation medication, Starting on Taisha 10/10/20 at 0808, Until Taisha 10/10/20 at 0808 Given 10/10/2020 8:08 AM BUSINESS SERVICES SALES REPRESENTATIVE 2 Tubes meperidine (DEMEROL) injection Code/trauma/sedation medication, Starting on Taisha 10/10/20 at 0807, Until Taisha 10/10/20 at 0807 Given 10/10/2020 8:07 AM BUSINESS SERVICES SALES REPRESENTATIVE 25 mg midazolam (VERSED) injection Code/trauma/sedation medication, Starting on Taisha 10/10/20 at 0806, Until Taisha 10/10/20 at 0826 Given 10/10/2020 8:26 AM BUSINESS SERVICES SALES REPRESENTATIVE 1 mg Given 10/10/2020 8:15 AM BUSINESS SERVICES SALES REPRESENTATIVE 1 mg Given 10/10/2020 8:06 AM BUSINESS SERVICES SALES REPRESENTATIVE 2 mg sodium chloride (PF) 0.9 % flush Code/trauma/sedation medication, Starting on Taisha 10/10/20 at 0830, Until Taisha 10/10/20 at 0830 Given 10/10/2020 8:30 AM BUSINESS SERVICES SALES REPRESENTATIVE 10 mLs sodium chloride 0.9% infusion Intravenous, Code/trauma/sedation continuous medication, Starting on Taisha 10/10/20 at 0731, Until Taisha 10/10/20 at 0731 New Bag 10/10/2020 7:31 AM BUSINESS SERVICES SALES REPRESENTATIVE 10 mL/hr 10 mL/hr documented in this encounter Care Teams Orthopedic Radiologic Technologist Relationship Specialty Start Date End Date Megan Infante MD [address] [facility] [place] [address] PCP - General FAMILY PRACTICE 04/06/16 Amauri Pandey MD [place] [employer] Transportation Director CARDIOVASCULAR DISEASE 04/06/16 12/28/23 Sharmila Davis, ARTIFICIAL LIMB MAKER, LIFTS AND CRANES INSPECTOR-C [address] [facility] [address] [place] [address] NURSE PRACTITIONER 01/04/17 04/03/24 Linda Block MD [address] [facility] [address] [address] [place] [employer] Transportation Director CLINICAL CARDIAC ELECTROPHYSIOLOGY 02/08/17 04/12/23 Jeff Grace MD [address] [facility] [address] [address] Consulting Physician INTERNAL MEDICINE 02/20/19 3 Zaki Ortiz MD [address] [facility] [address] [place] [address] Consulting Physician PULMONARY DISEASE 07/12/19 documented as of this encounter
--- OUTSIDE RECORDS SUMMARY | 2024-09-03 20:42 | XMS_ITS | Encounter Summary ---
Author Organization [facility] Address [address] [place] [address]. [place] [address] [place] [address] Care Team Providers Care Lath Hand Name Role Phone Piyush Pandey MD Unavailable Unavailabl e Megan Infante MD Primary Care Provider [phone] Sharmila Davis APRN INSTRUCTOR TAP DANCING-C Unavailable Linda Block MD Unavailable [phone] Jeff Grace MD Unavailable Zaki Ortiz MD Unavailable [phone] Reason for Visit * Reason Onset Date Comments Results 03/28/2021 Encounter Details Date Type Department Care Team (Late st Contact Info) Description 03/28/[address] [facility] Multispecialty [address] [address] Damaso Barnes MD [address] [place] [address] Results Social History Tobacco Use [...] test results back and appt. scheduled in [place] on 04/02/21 @ 10:40am. Voices understanding. documented in this encounter Plan of Treatment Upcoming Encounters Date Type Department Care Team (Late st Contact Info) Description 09/25/2024 2:00 PM DOG SHOW JUDGE Appointment [facility] [address] [place] [address] Zayra Powell, RUFFLING HEMMER AUTOMATIC [address] [place] [address] 10/16/2024 3:30 PM DOG SHOW JUDGE Office Visit [facility] [address] [place] [phone] rBit Gonzáles MD [address] [place] [phone] documented as of this encounter Visit Diagnoses Not on filedocumented in this encounter Care Teams Lath Hand Relationship Specialty Start Date End Date Megan Infante MD [address] [place] [address] PCP - General FAMILY PRACTICE 04/06/16 Piyush Pandey MD [place] [employer] Cutting Machine Tender CARDIOVASCULAR DISEASE 04/06/16 12/28/23 Sharmila Davis, TAG MACHINE OPERATOR, INSTRUCTOR TAP DANCING-C [address] [place] [address] [address] [place] [address] NURSE PRACTITIONER 01/04/17 04/03/24 Linda Block MD [address] [facility] [address] [place] [phone] [place] [employer] Cutting Machine Tender CLINICAL CARDIAC ELECTROPHYSIOLOGY 02/08/17 04/12/23 Jeff Grace MD [address] [facility] [address] [phone] Consulting Physician INTERNAL MEDICINE 02/20/19 3 Zaki Ortiz MD [address] [facility] [address] [phone] Consulting Physician PULMONARY DISEASE 07/12/19 documented as of this encounter
--- OUTSIDE RECORDS SUMMARY | 2024-09-03 20:42 | XMS_ITS | Encounter Summary ---
Author Organization [facility] Address [address] [place] [address]. [place] [address] [place] [address] Care Team Providers Care Java Scala Developer Name Role Phone Piyush Pandey MD Unavailable Unavailabl e Megan Infante MD Primary Care Provider [phone] Sharmila Davis APRN, NP-C Unavailable [phone] Linda Block MD Unavailable [phone] Jeff Grace MD Unavailable Zaki Ortiz MD Unavailable [phone] Reason for Visit * Reason Comments Hospital H&P (SCAN) Encounter Details Date Type Department Care Team (Late st Contact Info) Description 11/28/2020 Scan [facility] [facility] [address] Scanned, Documents Hospital H&P (SCAN) Social History [...] st Contact Info) Description 09/25/2024 2:00 PM ZONE MAINTENANCE TECHNICIAN Appointment [facility] [address] [facility] [place] [address] Zayra Powell, MATHEMATICS TECHNICIAN [address] [facility] [place] [address] 10/16/2024 3:30 PM ZONE MAINTENANCE TECHNICIAN Office Visit [place] [facility] [address] [place] [address] Brit Gonzáles MD [address] [place] [phone] documented as of this encounter Visit Diagnoses Not on filedocumented in this encounter Additional Health Concerns Infection Onset Date Last Indicated Resolved Time COVID-19 Rule Out 02/08/2021 02/08/2021 02/08/2021 9:06 PM CDT documented as of this encounter Care Teams Java Scala Developer Relationship Specialty Start Date End Date Megan Infante MD [address] [facility] [place] [address] PCP - General FAMILY PRACTICE 04/06/16 Piyush Pandey MD [employer] Spec CARDIOVASCULAR DISEASE 04/06/16 12/28/23 Sharmila Davis APRN, DIANETIC COUNSELOR-C [address] [facility] [address] [place] [address] NURSE PRACTITIONER 01/04/17 04/03/24 Linda Block MD [address] [facility] [address] [place] [phone] [employer] Spec CLINICAL CARDIAC ELECTROPHYSIOLOGY 02/08/17 04/12/23 Jeff Grace MD [address] [place] [address] Consulting Physician INTERNAL MEDICINE 02/20/19 3 Zaki Ortiz MD [address] [place] [address] Consulting Physician PULMONARY DISEASE 07/12/19 documented as of this encounter
--- OUTSIDE RECORDS SUMMARY | 2024-09-03 20:42 | XMS_ITS | Encounter Summary ---
Author Organization [facility] Address [address] [place] [address]. [place] [address] [place] [address] Care Team Providers Care Hand Glass Cutter Name Role Phone Piyush Pandey MD Unavailable Unavailabl e Megan Infante MD Primary Care Provider [phone] Sharmila Davis APRN, NP-C Unavailable Linda Block MD Unavailable [phone] Jeff Grace MD Unavailable Zaki Ortiz MD Unavailable [phone] Reason for Visit * Reason Onset Date Comments Reschedule 10/07/2020 Encounter Details Date Type Department Care Team (Late st Contact Info) Description 10/07/2020 Telephone [facility] [address] [place] [address] Piyush Pandey MD Reschedule Social [...] COVID-19? No / Unsure 10/05/2020 8:07 AM WASH HELPER documented as of this encounter Progress Notes * Megan Lay RN - 10/07/2020 3:35 PM CST Pt calling to reschedule his NEMO due to the weather tomorrow. Rescheduled to 10/10 at 8:00am. Patient verbalized understanding and had no further questions. HELPER documented in this encounter Plan of Treatment Upcoming Encounters Date Type Department Care Team (Late st Contact Info) Description 09/25/2024 2:00 PM WASH HELPER Appointment [facility] [address] [facility] [address] [place] [address] Zayra Powell, EDITOR NEWS [address] [facility] [place] [address] 10/16/2024 3:30 PM WASH HELPER Office Visit [facility] [address] [facility] [address] [address] [place] [phone] Brit Gonzáles MD [address] [place], [place] [address] documented as of this encounter Visit Diagnoses Not on filedocumented in this encounter Care Teams Hand Glass Cutter Relationship Specialty Start Date End Date Megan Infante MD [address] [place] [phone] PCP - General FAMILY PRACTICE 04/06/16 Piyush Pandey MD [place] Product Trainer CARDIOVASCULAR DISEASE 04/06/16 12/28/23 Sharmila Davis APRN, STRAWBERRY GROWER-C [address] [facility] [address] [place] [address] NURSE PRACTITIONER 01/04/17 04/03/24 Linda Block MD [address] [place] [address] [place] Product Trainer CLINICAL CARDIAC ELECTROPHYSIOLOGY 02/08/17 04/12/23 Jeff Grace MD [address] [place] [address] Consulting Physician INTERNAL MEDICINE 02/20/19 3 Zaki Ortiz MD [address] [place] [address] Consulting Physician PULMONARY DISEASE 07/12/19 documented as of this encounter
--- OUTSIDE RECORDS SUMMARY | 2024-09-03 20:42 | XMS_ITS | Encounter Summary ---
Author Organization [facility] Address [facility] [place] [address] [place] [address] Care Team Providers Care Agricultural Researcher Name Role Phone Piyush Pandey MD Unavailable Unavailabl e Megan Infante MD Primary Care Provider [phone] Sharmila Davis APRN SECURITIES SUPERVISOR-C Unavailable [phone] Linda Block MD Unavailable [phone] Jeff Grace MD Unavailable Zaki Ortiz MD Unavailable [phone] Reason for Referral * Consultation (Routine) - Closed Specialty Diagnoses / Procedures Referred By Yung t Referred To Contact SLEEP & RESPIRATORY CARE Diagnoses Pulmonary hypertension ([facility]) Sleep apnea Piyush Pandey MD Prabhu, Manjeshwar B, MD formerly [facility] [place] [address] Phone: tel: fax: Referral ID Status Reason Start Date Expiration Date V isits Requested Visits Authorized [id number] Closed Specialty Services 10/23/2020 11/23/2021 100 100 ORN CANDY MAKER Encounter Details Date Type Department Care Team (Late st Contact Info) Description 10/23/2020 Orders Only [facility] [address] [place] [phone] Piyush Pandey MD Social History Tobacco Use [...] COVID-19? No / Unsure 10/10/2020 6:37 AM POPCORN CANDY MAKER documented as of this encounter Plan of Treatment Upcoming Encounters Date Type Department Care Team (Late st Contact Info) Description 09/25/2024 2:00 PM POPCORN CANDY MAKER Appointment [facility] [address] [place] [address] Zayra Powell, [facility] [address] [place] [address] 10/16/2024 3:30 PM POPCORN CANDY MAKER Office Visit [facility] [id number] [place] [phone] Brit Gonzáles MD [address] [place] [address] Scheduled Referrals Name Type Priority Associated Diagnoses Orde r Schedule Ambulatory referral to Pulmonology/Sleep and Respiratory Care Referral Routine Pulmonary hypertension ([facility]) Sleep apnea Ordered: 10/23/2020 documented as of this encounter Visit Diagnoses Diagnosis Pulmonary hypertension ([facility])- Primary Other chronic pulmonary heart diseases Sleep apnea Unspecified sleep apnea documented in this encounter Care Teams Agricultural Researcher Relationship Specialty Start Date End Date Megan Infante MD [address] [place] [phone] PCP - General FAMILY PRACTICE 04/06/16 Piyush Pandey MD [place] Rug Renovator CARDIOVASCULAR DISEASE 04/06/16 12/28/23 Sharmila Davis, DANNY, SECURITIES SUPERVISOR-C [address] [facility] [address] [place] [address] NURSE PRACTITIONER 01/04/17 04/03/24 Linda Block MD [address] [address] [place] Rug Renovator CLINICAL CARDIAC ELECTROPHYSIOLOGY 02/08/17 04/12/23 Jeff Grace MD [address] [address] Consulting Physician INTERNAL MEDICINE 02/20/19 3 Zaki Ortiz MD [address] [address] Consulting Physician PULMONARY DISEASE 07/12/19 documented as of this encounter
--- OUTSIDE RECORDS SUMMARY | 2024-09-03 20:42 | XMS_ITS | Encounter Summary ---
Author Organization [facility] Address [address] [place] [address]. [place] [address] [place] [address] Care Team Providers Care Washer Cutter Name Role Phone Piyush Pandey MD Unavailable Unavailabl e Megan Infante MD Primary Care Provider [phone] Sharmila Davis APRN MAINTENANCE CHIEF-C Unavailable [phone] Linda Block MD Unavailable [phone] Jeff Grace MD Unavailable Zaki Ortiz MD Unavailable [phone] Encounter Details Date Type Department Care Team [...] st Contact Info) Description 09/25/2024 2:00 PM GRADUATE STUDENT INSTRUCTOR Appointment [facility] [address] [place] [address] Zayra Powell, REINSURANCE ANALYST [address] [place], [place] [phone] 10/16/2024 3:30 PM GRADUATE STUDENT INSTRUCTOR Office Visit [facility] [address] [place] [address] Brit Gonzáles MD [address] [place], [place] [phone] documented as of this encounter Visit Diagnoses Not on filedocumented in this encounter Care Teams Washer Cutter Relationship Specialty Start Date End Date Megan Infante MD [address] [place] [address] PCP - General FAMILY PRACTICE 04/06/16 Piyush Pandey MD [place] Guest Room Inspector CARDIOVASCULAR DISEASE 04/06/16 12/28/23 Sharmila Davis APRN, MAINTENANCE CHIEF-C [address] [facility] [address] [place] [address] NURSE PRACTITIONER 01/04/17 04/03/24 Linda Block MD [address] [facility] [address] [place] [address] [place] Guest Room Inspector CLINICAL CARDIAC ELECTROPHYSIOLOGY 02/08/17 04/12/23 Jeff Grace MD [address] [facility] [address] [place] [address] Consulting Physician INTERNAL MEDICINE 02/20/19 3 Zaki Ortiz MD [address] [place] [address] Consulting Physician PULMONARY DISEASE 07/12/19 documented as of this encounter
--- OUTSIDE RECORDS SUMMARY | 2024-09-03 20:42 | XMS_ITS | Encounter Summary ---
Author Organization [facility] Address [address] [place] [address]. [place] [address] [place] [address] Care Team Providers Care Director Of Casework Services Name Role Phone Piyush Pandey MD Unavailable Unavailabl e Megan Infante MD Primary Care Provider [phone] Sharmila Davis APRN PURCHASING ADMINISTRATOR-C Unavailable [phone] Linda Block MD Unavailable [phone] Jeff Grace MD Unavailable Zaki Ortiz MD Unavailable [phone] Encounter Details Date Type Department Care Team [...] st Contact Info) Description 09/25/2024 2:00 PM UROLOGY PHYSICIAN Appointment [facility] [address] [place] [address] Zayra Powell, MINE SAFETY ENGINEER [address] [place], [place] [phone] 10/16/2024 3:30 PM UROLOGY PHYSICIAN Office Visit [facility] [facility] [address] [place] [address] Brit Gonzáles MD [address] [place], [place] [phone] documented as of this encounter Visit Diagnoses Not on filedocumented in this encounter Care Teams Director Of Casework Services Relationship Specialty Start Date End Date Megan Infante MD [address] [place] [address] PCP - General FAMILY PRACTICE 04/06/16 Piyush Pandey MD [place] [employer] Systems Analyst CARDIOVASCULAR DISEASE 04/06/16 12/28/23 Sharmila Davis APRN, PURCHASING ADMINISTRATOR-C [address] [facility] [address] [place] [address] NURSE PRACTITIONER 01/04/17 04/03/24 Linda Block MD [address] [facility] [address] [place] [address] [place] Analyst CLINICAL CARDIAC ELECTROPHYSIOLOGY 02/08/17 04/12/23 Jeff Grace MD [address] [facility] 47 [place] [address] Consulting Physician INTERNAL MEDICINE 02/20/19 3 Zaki Ortiz MD [address] [facility] [address] [place] [address] Consulting Physician PULMONARY DISEASE 07/12/19 documented as of this encounter
--- OUTSIDE RECORDS SUMMARY | 2024-09-03 20:42 | XMS_ITS | Encounter Summary ---
Author Organization [facility] Address [address] [place] [address]. [place] [address] [place] [address] Care Team Providers Care Signaling Design Engineer Name Role Phone Piyush Pandey MD Unavailable Unavailabl e Megan Infante MD Primary Care Provider [phone] Sharmila Davis APRN INSPECTOR GENERAL-C Unavailable Linda Block MD Unavailable [phone] Jeff Grace MD Unavailable Zaki Ortiz MD Unavailable [phone] Reason for Visit * Reason Onset Date Comments Appointment Request 10/15/2020 Encounter Details Date Type Department Care Team (Late st Contact Info) Description 10/15/2020 Telephone [facility] [address] [place] [address] Jeff Grace MD [address] [place], [place] [phone] Appointment Request Social History Tobacco Use Types [...] COVID-19? No / Unsure 10/10/2020 6:37 AM GRAVITY PROSPECTING OPERATOR documented as of this encounter Progress Notes * Kimberly Nkechi De León - 10/15/2020 2:41 PM CST Patient due for vascular follow up in [place] with Dr. Grace. I called patient, we scheduled the appointment for 11:30 AM. Reminder letter mailed per pt request. ITY PROSPECTING OPERATOR documented in this encounter Plan of Treatment Upcoming Encounters Date Type Department Care Team (Late st Contact Info) Description 09/25/2024 2:00 PM GRAVITY PROSPECTING OPERATOR Appointment [facility] [address] [address] Zayra Powell, ORGANIZATIONAL RESEARCH CONSULTANT [address] [facility] [place] [address] 10/16/2024 3:30 PM GRAVITY PROSPECTING OPERATOR Office Visit [facility] [address] [facility] [place] [address] Brit Gonzáles MD [address] [place] [address] documented as of this encounter Visit Diagnoses Not on filedocumented in this encounter Care Teams Signaling Design Engineer Relationship Specialty Start Date End Date Megan Infante MD [address] [facility] [place] [address] PCP - General FAMILY PRACTICE 04/06/16 Piyush Pandey MD [place] Senior Data Warehouse Developer CARDIOVASCULAR DISEASE 04/06/16 12/28/23 Sharmila Davis, OPENSTACK DEVELOPER, INSPECTOR GENERAL-C [address] [place] [address] [place] [address] NURSE PRACTITIONER 01/04/17 04/03/24 Linda Block MD [address] [place] [address] [place] Senior Data Warehouse Developer CLINICAL CARDIAC ELECTROPHYSIOLOGY 02/08/17 04/12/23 Jeff Grace MD [address] [email or web address] [address] [place] [address] Consulting Physician INTERNAL MEDICINE 02/20/19 3 Zaki Ortiz MD [address] [facility] [[email or web address] [address]76 [place] [address] Consulting Physician PULMONARY DISEASE 07/12/19 documented as of this encounter
--- OUTSIDE RECORDS SUMMARY | 2024-09-03 20:42 | XMS_ITS | Encounter Summary ---
Author Organization [facility] Address [address] [place] [address]. [place] [address] [place] [address] Care Team Providers Care Respite Care Provider Name Role Phone Piyush Pandey MD Unavailable Unavailabl e Megan Infante MD Primary Care Provider [phone] Sharmila Davis APRN BOX ANNEALER-C Unavailable [phone] Linda Block MD Unavailable [phone] Jeff Grace MD Unavailable Zaki Ortiz MD Unavailable [phone] Encounter Details Date Type Department Care Team [...] st Contact Info) Description 09/25/2024 2:00 PM SHIPPING RECEIVING CLERK Appointment [facility] [address] [place] [address] Zayra Powell, INVESTMENT BANKING MANAGER [address] [place], [place] [phone] 10/16/2024 3:30 PM SHIPPING RECEIVING CLERK Office Visit [facility] [address] [place] [address] Brit Gonzáles MD [address] [place], [place] [phone] documented as of this encounter Visit Diagnoses Not on filedocumented in this encounter Care Teams Respite Care Provider Relationship Specialty Start Date End Date Megan Infante MD [address] [place] [address] PCP - General FAMILY PRACTICE 04/06/16 Piyush Pandey MD [place] Care Transport Nurse CARDIOVASCULAR DISEASE 04/06/16 12/28/23 Sharmila Davis APRN, BOX ANNEALER-C [address] [facility] [address] [place] [address] NURSE PRACTITIONER 01/04/17 04/03/24 Linda Block MD [address] [facility] [address] [place] [address] [place] Care Transport Nurse CLINICAL CARDIAC ELECTROPHYSIOLOGY 02/08/17 04/12/23 Jeff Grace MD [address]19 [facility] 47 [place] [address] Consulting Physician INTERNAL MEDICINE 02/20/19 3 Zaki Ortiz MD [address] [facility] [address] [place] [address] Consulting Physician PULMONARY DISEASE 07/12/19 documented as of this encounter
--- OUTSIDE RECORDS SUMMARY | 2024-09-03 20:42 | XMS_ITS | Encounter Summary ---
Author Organization [facility] Address [facility] [place] [address] [place] [address] Care Team Providers Care Processing Mgr Name Role Phone Piyush Pandey MD Unavailable Unavailabl e Megan Infante MD Primary Care Provider [phone] Sharmila Davis APRN, NP-C Unavailable [phone] Linda Block MD Unavailable [phone] Jeff Grace MD Unavailable Zaki Ortiz MD Unavailable [phone] Reason for Referral * Imaging (Routine) - Closed Specialty Diagnoses / Procedures Referred By Yung sequeira Referred To Contact RADIOLOGY Diagnoses Pain in both lower extremities Procedures [employer] Jeff Pulido MD [address] [place] [address] Phone: tel: fax: Referral ID Status Reason Start Date Expiration Date Visits Re quested Visits Authorized [id number] Closed 11/26/2020 12/27/2021 1 1 * Imaging (Routine) - Closed Specialty Diagnoses / Procedures Referred By Yung sequeira Referred To Contact RADIOLOGY Diagnoses Bilateral carotid artery disease, unspecified type (CMS/HCC) Asymptomatic carotid artery stenosis, bilateral Pain in both lower extremities Procedures USV CAROTID DUPLEX Jeff Pulido MD [address] [employer] [address] [place] [address] Phone: tel: fax: Referral ID Status Reason Start Date Expiration Date Visits Re quested Visits Authorized [id number] Closed 11/26/2020 12/26/2021 1 1 Reason for Visit * Reason Comments Follow Up lower extremity leg pain Encounter Details Date Type Department Care Team (Latest Contact Info) Description 11/26/2020 11:30 AM CDT Office Visit [facility] [place] [address] Jeff Grace MD [address]19 [place], [place] [address] Follow Up (lower extremity leg pain ) [...] COVID-19? No / Unsure 10/30/2020 2:44 PM ENVIRONMENT FRIENDLY LANDSCAPE DESIGNER documented as of this encounter Last Filed [...] Nare route daily., Disp: , Rfl: ??? Rhiowahyhze-Rqtaqlaag-Wkxqsp 100-62.5-25 MCG/INH AEROSOL POWDER, BREATH ACTIVATED, Inhale [...] st Contact Info) Description 09/25/2024 2:00 PM ENVIRONMENT FRIENDLY LANDSCAPE DESIGNER Appointment [facility] [address] [place] [address] Zayra Powell FNP [address] [place] [address] 10/16/2024 3:30 PM ENVIRONMENT FRIENDLY LANDSCAPE DESIGNER Office Visit [facility] [address] [place] [address] Brit Gonzáles MD [address] [place] [address] documented as of this encounter Results * USV CAROTID DUPLEX ELZA (11/25/2021 9:59 AM CDT) Anatomical Region Laterality Modality Neck Ultrasound Jeff Grace MD VASC Final Result * [employer]V STELLA LTD ELZA (11/25/2021 9:18 AM CDT) Anatomical Region Laterality Modality Extremity Ultrasound Jeff Grace MD VASC Final Result documented in this encounter Visit Diagnoses Diagnosis Bilateral carotid artery disease, unspecified type (CMS/[facility])- Primary Asymptomatic carotid artery stenosis, bilateral Pain in both lower extremities documented in this encounter Care Teams Processing Mgr Relationship Specialty Start Date End Date Megan Infante MD [address] [facility] [address] PCP - General FAMILY PRACTICE 04/06/16 Piyush Pandey MD [employer] CARDIOVASCULAR DISEASE 04/06/16 12/28/23 Sharmila Davis, DANNY, WHEEL SHOP SUPERVISOR-C [address] [place] [address] [phone] NURSE PRACTITIONER 01/04/17 04/03/24 Linda Block MD [address] [facility] [address] [place] [address] [employer] CLINICAL CARDIAC ELECTROPHYSIOLOGY 02/08/17 04/12/23 Jeff Grace MD [address] [facility] [address] [place] [address] Consulting Physician INTERNAL MEDICINE 02/20/19 3 Zaki Ortiz MD [address] [place] [address] Consulting Physician PULMONARY DISEASE 07/12/19 documented as of this encounter
--- OUTSIDE RECORDS SUMMARY | 2024-09-03 20:42 | XMS_ITS | Encounter Summary ---
Author Organization [facility] Address [address] [place] [address]. [place] [address] [place] [address] Care Team Providers Care Cps Team Lead Name Role Phone Piyush Pandey MD Unavailable Unavailabl e Megan Infante MD Primary Care Provider [phone] Sharmila Davis APRN RESPIRATORY PRACTITIONER-C Unavailable [phone] Linda Block MD Unavailable [phone] Jeff Grace MD Unavailable Zaki Ortiz MD Unavailable [phone] Encounter Details Date Type Department Care Team [...] COVID-19? No / Unsure 10/30/2020 2:44 PM EDITOR TRADE JOURNAL documented as of this encounter Plan of Treatment Upcoming Encounters Date Type Department Care Team (Late Contact Info) Description 09/25/2024 2:00 PM EDITOR TRADE JOURNAL Appointment [facility] [address] [place] [address] Zayra Powell, CLOTH WORKER [address] [place] [phone] 10/16/2024 3:30 PM EDITOR TRADE JOURNAL Office Visit [facility] [address] [place] [address] Brit Gonzáles MD [address] [place], [place] [phone] documented as of this encounter Visit Diagnoses Not on filedocumented in this encounter Care Teams Cps Team Lead Relationship Specialty Start Date End Date Megan Infante MD [address] [place] [address] PCP - General FAMILY PRACTICE 04/06/16 Piyush Pandey MD [place] Custodial Maintenance Worker CARDIOVASCULAR DISEASE 04/06/16 12/28/23 Sharmila Davis APRN, RESPIRATORY PRACTITIONER-C 619 [facility] 47 [place] [address] NURSE PRACTITIONER 01/04/17 04/03/24 Linda Block MD [address]19 [facility] [address] [place] [address] [place] Custodial Maintenance Worker CLINICAL CARDIAC ELECTROPHYSIOLOGY 02/08/17 04/12/23 Jeff Grace MD 619 [facility] 47 [place] [address] Consulting Physician INTERNAL MEDICINE 02/20/19 3 Zaki Ortiz MD [address] [facility] [address] [place] [address] Consulting Physician PULMONARY DISEASE 07/12/19 documented as of this encounter
--- OUTSIDE RECORDS SUMMARY | 2024-09-03 20:42 | XMS_ITS | Encounter Summary ---
Author Organization [facility] Address [address] [place] [address]. [place] [address] [place] [address] Care Team Providers Care Configuration Management Administrator Name Role Phone Piyush Pandey MD Unavailable Unavailabl e Megan Infante MD Primary Care Provider [phone] Sharmila Davis APRN PART TIME RECEPTIONIST-C Unavailable Linda Block MD Unavailable [phone] Jeff Grace MD Unavailable Zaki Ortiz MD Unavailable [phone] Encounter Details Date Type Department Care Team (Latest Contact Info) Description 10/05/2020 8:08 AM TIMERS INSPECTOR - 10/05/2020 11:59 PM TIMERS INSPECTOR Hospital Encounter [facility] [address] [facility] [place] [address] Piyush Pandey MD Discharge Disposition: Home or [...] COVID-19? No / Unsure 10/05/2020 8:07 AM TIMERS INSPECTOR documented as of this encounter Medications at [...] st Contact Info) Description 09/25/2024 2:00 PM TIMERS INSPECTOR [facility]ointment [facility] [address] [place] [address] Zayra Powell, MDS MANAGER [address] [place] [address] 10/16/2024 3:30 PM TIMERS INSPECTOR Office Visit [facility] [address] [place] [address] Brit Gonzáles MD [address] [place], [place] [address] documented as of this encounter Procedures Procedure Name Priority Date/Time Associated Diagnosis Comments CORONAVIRUS (COVID 19) Routine 10/05/2020 8:14 AM TIMERS INSPECTOR Pre-operative laboratory examination documented in this encounter Results * PRE-SURGICAL/PRE-PROCEDURE CORONAVIRUS (COVID 19) (10/05/2020 8:14 AM TIMERS INSPECTOR) CORONAVIRUS SARS COV 2 PCR (RESP) NOT DETECTED NOT DETECTED 10/06/2020 11:37 AM TIMERS INSPECTOR [facility] Comment: A Not Detected (negative) test [...] and patients using the following websites: https://www.The Personal Bee.com/home/Covid-19/HCP/QuestIVD/fact- sheet.html https://www.The Personal Bee.com/home/Covid-19/Patients/ QuestIVD/fact-sheet.html This test has been authorized by the FDA under an Emergency Use Authorization (EUA) for use by authorized laboratories. Due to the current public health emergency, [facility] is receiving a high volume of samples [...] about COVID-19 can be found at the [facility] website: www.[employer].Disrupt6/Covid19. Test performed at [facility] [place] [address] [place], [place] ??[address] Director: REEMA ORDAZ DO,MPH FIRST TEST UNKNOWN 10/05/2020 8:13 AM TIMERS INSPECTOR [facility] EMPLOYED IN HEALTHCARE NO 10/05/2020 8:13 AM TIMERS INSPECTOR [facility] SYMPTOMATIC DEFINED BY CDC UNKNOWN 10/05/2020 8:13 AM TIMERS INSPECTOR [facility] DATE OF SYMPTOM ONSET UNKNOWN 10/05/2020 8:16 AM TIMERS INSPECTOR [facility] HOSPITALIZATION STATUS NO 10/05/2020 8:13 AM TIMERS INSPECTOR [facility] PATIENT IN ICU NO 10/05/2020 8:13 AM TIMERS INSPECTOR [facility] RESIDENT OF [facility] NO 10/05/2020 8:13 AM TIMERS INSPECTOR [facility] PATIENT'S RACE WHITE OR 10/05/2020 8:13 AM TIMERS INSPECTOR [facility] ETHNICITY NONHISPANIC 10/05/2020 8:13 AM TIMERS INSPECTOR [facility] SOURCE (QST) NASOPHARYNGEAL SWAB 10/05/2020 8:13 AM TIMERS INSPECTOR [facility] NASOPHARYNGEAL SWAB / Unknown 10/05/2020 8:14 AM TIMERS INSPECTOR us Piyush Pandey MD MICROBIOLOGY - GENERAL CLARISSA MCARTHUR Final Result [facility] [address] [place] [address], [facility] [id number] [place] [address], documented in this encounter Visit Diagnoses Diagnosis Pre-operative laboratory examination Pre-procedural laboratory examination documented in this encounter Additional Health Concerns Infection Onset Date Last Indicated Resolved Time COVID-19 Rule Out 10/05/2020 10/05/2020 10/06/2020 11:37 AM TIMERS INSPECTOR documented as of this encounter Care Teams Configuration Management Administrator Relationship Specialty Start Date End Date Megan Infante MD [address] [place] [address] PCP - General FAMILY PRACTICE 04/06/16 Piyush Pandey MD [place] Outgoing Inspector CARDIOVASCULAR DISEASE 04/06/16 12/28/23 Sharmila Davis APRN, PART TIME RECEPTIONIST-C [address] [facility] [address] [place] [address] NURSE PRACTITIONER 01/04/17 04/03/24 Linda Block MD [address] [facility] [address] [place] [address] [place] Outgoing Inspector CLINICAL CARDIAC ELECTROPHYSIOLOGY 02/08/17 04/12/23 Jeff Grace MD [address] [facility] [address] [place] [address] Consulting Physician INTERNAL MEDICINE 02/20/19 3 Zaki Ortiz MD [address] [facility] [address] [place] [address] Consulting Physician PULMONARY DISEASE 07/12/19 documented as of this encounter
--- OUTSIDE RECORDS SUMMARY | 2024-09-03 20:42 | XMS_ITS | Encounter Summary ---
Author Organization [facility] Address [address] [place] [address]. [place] [address] [place] [address] Care Team Providers Care Physical Therapy Resident Name Role Phone Piyush Pandey MD Unavailable Unavailabl e Megan Infante MD Primary Care Provider [phone] Sharmila Davis APRN, ROSIN BARREL FILLER-C Unavailable [phone] Linda Block MD Unavailable [phone] Jeff Grace MD Unavailable Zaki Ortiz MD Unavailable [phone] Encounter Details Date Type Department Care Team [...] COVID-19? No / Unsure 10/10/2020 6:37 AM OCCUPATIONAL THERAPIST PER DIEM documented as of this encounter Plan of Treatment Upcoming Encounters Date Type Department Care Team (Late st Contact Info) Description 09/25/2024 2:00 PM OCCUPATIONAL THERAPIST PER DIEM Appointment [facility] [address] [place] [address] Zayra Powell, [facility] [address] [facility] [place] [address] 10/16/2024 3:30 PM OCCUPATIONAL THERAPIST PER DIEM [facility] [address] [place] [address] Brit Gonzáles MD [address] [place], [place] [address] documented as of this encounter Visit Diagnoses Not on filedocumented in this encounter Care Teams Physical Therapy Resident Relationship Specialty Start Date End Date Megan Infante MD [address] [facility] [address] PCP - General FAMILY PRACTICE 04/06/16 Piyush Pandey MD [place] [facility] Reimbursement Manager CARDIOVASCULAR DISEASE 04/06/16 12/28/23 Sharmila Davis, ORDER CHECKER PACKER PROCESSER, ROSIN BARREL FILLER-C [address] [facility] [place] [address] [place] [address] NURSE PRACTITIONER 01/04/17 04/03/24 Linda Block MD 619 [facility] [address] [place] [address] [place] [facility] Reimbursement Manager CLINICAL CARDIAC ELECTROPHYSIOLOGY 02/08/17 04/12/23 Jeff Grace MD 6[address] [facility] [address] [place] [address] Consulting Physician INTERNAL MEDICINE 02/20/19 6 3 Zaki Ortiz MD [address] [facility] [address] [place] [address] Consulting Physician PULMONARY DISEASE 07/12/19 documented as of this encounter
--- OUTSIDE RECORDS SUMMARY | 2024-09-03 20:42 | XMS_ITS | Encounter Summary ---
Author Organization [facility] Address [address] [place] [address]. [place] [address] [place] [address] Care Team Providers Care Shuttle Veneering Supervisor Name Role Phone Piyush Pandey MD Unavailable Unavailabl e Megan Infante MD Primary Care Provider [phone] Sharmila Davis APRN SOFTWARE QUALITY ASSURANCE ANALYST-C Unavailable [phone] Linda Block MD Unavailable [phone] Jeff Grace MD Unavailable Zaki Ortiz MD Unavailable [phone] Encounter Details Date Type Department Care [...] st Contact Info) Description 09/25/2024 2:00 PM LPN HOME HEALTH Appointment [facility] [address] [place] [address] Zayra Powell, COREMAKER EXPERIMENTAL [address] [place], [place] [address] 10/16/2024 3:30 PM LPN HOME HEALTH Office Visit [facility] [address] [place] [address] Brit Gonzáles MD [address] [place], [place] [phone] documented as of this encounter Visit Diagnoses Not on filedocumented in this encounter Care Teams Shuttle Veneering Supervisor Relationship Specialty Start Date End Date Megan Infante MD [address] [place] [address] PCP - General FAMILY PRACTICE 04/06/16 Piyush Pandey MD [place] [facility] Nurse CARDIOVASCULAR DISEASE 04/06/16 12/28/23 Sharmila Davis APRN, SOFTWARE QUALITY ASSURANCE ANALYST-C 619 [facility] 47 [place] [address] NURSE PRACTITIONER 01/04/17 04/03/24 Linda Block MD 619 [facility] [address] [place] [address] [facility] Nurse CLINICAL CARDIAC ELECTROPHYSIOLOGY 02/08/17 04/12/23 Jeff Grace MD [address] [facility] [address] [place] [address] Consulting Physician INTERNAL MEDICINE 02/20/19 3 Zaki Ortiz MD [address] [place] [address] Consulting Physician PULMONARY DISEASE 07/12/19 documented as of this encounter
--- OUTSIDE RECORDS SUMMARY | 2024-09-03 20:42 | XMS_ITS | Encounter Summary ---
Author Organization [facility] Address [facility] [place] [address] [place] [address] Care Team Providers Care Industrial Sociologist Name Role Phone Piyush Pandey MD Unavailable Unavailabl e Megan Infante MD Primary Care Provider [phone] Sharmila Davis APRN RN BONE MARROW TRANSPLANT-C Unavailable [phone] Linda Block MD Unavailable [phone] Jeff Grace MD Unavailable Zaki Ortiz MD Unavailable [phone] Reason for Referral * Sleep Lab (Routine) - Closed Specialty Diagnoses / Procedures Referred By Yung sequeira Referred To Contact Diagnoses Obstructive sleep apnea (adult) (pediatric) Procedures Limited Channel Unattended (Home Study) (G0399) Damaso Barnes MD [address] [place] [address] Phone: tel: fax: [address] [address] Phone: tel: Referral ID Status Reason Start Date Expiration Date Visits Re quested Visits Authorized [id number] Closed 02/27/2021 03/30/2022 1 1 Encounter Details Date Type Department Care Team (Late st Contact Info) Description 02/27/2021 Orders Only [facility] [address] [place] [phone] Damaso Barnes MD [address] [place] [address] Social History Tobacco Use Types [...] Contact Info) Description 09/25/2024 2:00 PM REHABILITATION INSPECTOR Appointment [facility] [address] [place] [address] Zayra Powell, ABRADING MACHINE TENDER [address] [place] [address] 10/16/2024 3:30 PM REHABILITATION INSPECTOR Office Visit [facility] [address] [place] [address] Brit Gonzáles MD 6[address] [place] [address] documented as of this encounter Results * Limited Channel Unattended (Home Study) (G0399) (05/20/2021 7:00 PM CDT) Narrative [facility] - 05/20/2021 7:00 PM CDT Damaso [...] MD SLEEP CENTER ORDERABLES F inal Result [facility] [address] [place] [address], documented in this encounter Visit Diagnoses Diagnosis Obstructive sleep apnea (adult) (pediatric)- Primary Chronic obstructive pulmonary disease, unspecified COPD type ([facility]) Obstructive sleep apnea (adult) (pediatric) documented in this encounter Care Teams Industrial Sociologist Relationship Specialty Start Date End Date Megan Infante MD [address] [facility] [place] [address] PCP - General FAMILY PRACTICE 04/06/16 Piyush Pandey MD [place] Hot Water Heater Installer CARDIOVASCULAR DISEASE 04/06/16 12/28/23 Sharmila Davis, OPERATIONS ASSOCIATE, RN BONE MARROW TRANSPLANT-C [address] [facility] [address] [place] [address] NURSE PRACTITIONER 01/04/17 04/03/24 Linda Block MD [address] [facility] [address] [place] [address] [place] Hot Water Heater Installer CLINICAL CARDIAC ELECTROPHYSIOLOGY 02/08/17 04/12/23 Jeff Grace MD [address] [facility] [address] [place] [address] Consulting Physician INTERNAL MEDICINE 02/20/19 3 Zaki Ortiz MD [address] [facility] [address] [place] [address] Consulting Physician PULMONARY DISEASE 07/12/19 documented as of this encounter
--- OUTSIDE RECORDS SUMMARY | 2024-09-03 20:42 | XMS_ITS | Encounter Summary ---
Author Organization [facility] Address [address] [place] [address]. [place] [address] [place] [address] Care Team Providers Care Dye Beck Reel Operator Name Role Phone Piyush Pandey MD Unavailable Unavailabl e Megan Infante MD Primary Care Provider [phone] Sharmila Davis APRN NURSES' ASSOCIATION EXECUTIVE DIRECTOR-C Unavailable [phone] Linda Block MD Unavailable [phone] Jeff Grace MD Unavailable Zaki Ortiz MD Unavailable [phone] Encounter Details Date Type Department Care Team [...] Contact Info) Description 09/25/2024 2:00 PM PHARMACY STOCK CLERK Appointment [facility] [address] [place] [address] Zayra Powell, C ARCHITECT [address] [place], [place] [address] 10/16/2024 3:30 PM PHARMACY STOCK CLERK Office Visit [facility] [address] [place] [address] Brit Gonzáles MD [address] [place], [place] [phone] documented as of this encounter Visit Diagnoses Not on filedocumented in this encounter Care Teams Dye Beck Reel Operator Relationship Specialty Start Date End Date Megan Infante MD [address] [place] [address] PCP - General FAMILY PRACTICE 04/06/16 Piyush Pandey MD [place] Carnallite Plant Operator CARDIOVASCULAR DISEASE 04/06/16 12/28/23 Sharmila Davis APRN, NURSES' ASSOCIATION EXECUTIVE DIRECTOR-C [address] [facility] [address] [place] [address] NURSE PRACTITIONER 01/04/17 04/03/24 Linda Block MD 619 [facility] [address] [place] [address] [place] Carnallite Plant Operator CLINICAL CARDIAC ELECTROPHYSIOLOGY 02/08/17 04/12/23 Jeff Grace MD 6[address] [facility] 47 [place] [address] Consulting Physician INTERNAL MEDICINE 02/20/19 3 Zaki Ortiz MD [address] [facility] [address] [place] [address] Consulting Physician PULMONARY DISEASE 07/12/19 documented as of this encounter
--- OUTSIDE RECORDS SUMMARY | 2024-09-03 20:42 | XMS_ITS | Encounter Summary ---
Author Organization [facility] Address [facility] [place] [address] [place] [address] Care Team Providers Care Slurry Tank Operator Name Role Phone Piyush Pandey MD Unavailable Unavailabl e Megan Infante MD Primary Care Provider [phone] Sharmila Davis APRN, NP-C Unavailable Linda Block MD Unavailable [phone] Jeff Grace MD Unavailable Zaki Ortiz MD Unavailable [phone] Reason for Visit * Auth/Cert Specialty Diagnoses / Procedures Referred By Yung sequeira Referred To Contact Diagnoses DYSPHAGIA, HISTORY OF POLYPS Procedures UPPER GI ENDOSCOPY,BIOPSY COLONOSCOPY,DIAGNOSTIC EGD COLONOSCOPY DIAGNOSTIC WITH/WITHOUT SPECIMEN BRUSH/WASH Referral ID Status Reason Start Date Expiration Date Visits Re quested Visits Authorized [id number] 1 1 Encounter Details Date Type Department Care Team (Late st Contact Info) Description 02/11/2021 8:04 AM CDT - 02/11/2021 8:19 AM T Hospital En[facility] [address] [place] [address] Kilo Navarro MD [address] [place] [address] Discharge Disposition: Home or Self Care [...] Contact Info) Description 09/25/2024 2:00 PM FAMILY PRACTICE PHYSICIAN Appointment [facility] [address] [place] [address] Zayra Powell, MILLWRIGHT SUPERVISOR [address] [place] [address] 10/16/2024 3:30 PM FAMILY PRACTICE PHYSICIAN Office Visit [facility] [address] [place] [address] Brit Gonzáles MD [address]19 [place] [address] documented as of this encounter Visit Diagnoses Not on filedocumented in this encounter Active and Recently Administered Medications Care Teams Slurry Tank Operator Relationship Specialty Start Date End Date Megan Infante MD [address] [place] [address] PCP - General FAMILY PRACTICE 04/06/16 Piyush Pandey MD [place] Play Therapist CARDIOVASCULAR DISEASE 04/06/16 12/28/23 Sharmila Davis APRN, DIRECTOR GLOBAL SALES-C [address] [facility] [address] [place] [address] NURSE PRACTITIONER 01/04/17 04/03/24 Linda Block MD [address] [facility] [address] [place] [address] [place] Play Therapist CLINICAL CARDIAC ELECTROPHYSIOLOGY 02/08/17 04/12/23 Jeff Grace MD [address] [facility] [address] [address] Consulting Physician INTERNAL MEDICINE 02/20/19 3 Zaki Ortiz MD [address] [facility] [address] [place] [address] Consulting Physician PULMONARY DISEASE 07/12/19 documented as of this encounter
--- OUTSIDE RECORDS SUMMARY | 2024-09-03 20:42 | XMS_ITS | Encounter Summary ---
Author Organization [facility] Address [address] [place] [address]. [place] [address] [place] [address] Care Team Providers Care Bacteriologist Soil Name Role Phone Piyush Pandey MD Unavailable Unavailabl e Megan Infante MD Primary Care Provider [phone] Sharmila Davis APRN HOT DIE PICKER-C Unavailable Linda Block MD Unavailable [phone] Jeff Grace MD Unavailable Zaki Ortiz MD Unavailable [phone] Reason for Visit * Reason Onset Date Comments Results 02/24/2021 Encounter Details Date Type Department Care Team (Late st Contact Info) Description 02/24/2021 Telephone [facility] Multispecialty [address] [address] Damaso Barnes MD [address] [place] [address] Results Social History Tobacco Use [...] st Contact Info) Description 09/25/2024 2:00 PM CONTROL CHEMIST Appointment [facility] [address] [place] [phone] Zayra Powell, UNITIZER [address] [place] [address] 10/16/2024 3:30 PM CONTROL CHEMIST Office Visit [facility] [address] [place] [address] Brit Gonzáles MD [address] [place], [place] [address] documented as of this encounter Visit Diagnoses Not on filedocumented in this encounter Care Teams Bacteriologist Soil Relationship Specialty Start Date End Date Megan Infante MD [address] [place] [address] PCP - General FAMILY PRACTICE 04/06/16 Piyush Pandey MD [place] Personnel Generalist Manager CARDIOVASCULAR DISEASE 04/06/16 12/28/23 Sharmila Davis APRN, HOT DIE PICKER-C [address] [facility] [address] [place] [address] NURSE PRACTITIONER 01/04/17 04/03/24 Linda Block MD [address] [address] [place] Personnel Generalist Manager CLINICAL CARDIAC ELECTROPHYSIOLOGY 02/08/17 04/12/23 Jeff Grace MD [address] [address] Consulting Physician INTERNAL MEDICINE 02/20/19 3 Zaki Ortiz MD [address] [address] Consulting Physician PULMONARY DISEASE 07/12/19 documented as of this encounter
--- OUTSIDE RECORDS SUMMARY | 2024-09-03 20:42 | XMS_ITS | Encounter Summary ---
Author Organization [facility] Address [address] [place] [address]. [place] [address] [place] [address] Care Team Providers Care Edge Gluer Name Role Phone Piyush Pandey MD Unavailable Unavailabl e Megan Infante MD Primary Care Provider [phone] Sharmila Davis APRN HOSPITAL CLERK-C Unavailable Linda Block MD Unavailable [phone] Jeff Grace MD Unavailable Zaki Ortiz MD Unavailable [phone] Encounter Details Date Type Department Care Team (Late st Contact Info) Description 02/08/2021 6:52 AM CDT - 02/08/2021 11:59 PM CDT Hospital Encounter [facility] [address] [place] [address] Kilo Navarro MD [address] [place] [address] Discharge Disposition: Home or Self [...] st Contact Info) Description 09/25/2024 2:00 PM [address]Y TEACHER Appointment [facility] [address] [place] [address] Zayra Powell, PURE PAK MACHINE OPERATOR [address] [place] [address] 10/16/2024 3:30 PM GEODESY TEACHER Office Visit [facility] [address] [place] [address] Brit Gonzáles MD [address]19 [place] [address] documented as of this encounter Procedures Procedure Name Priority Date/Time Associated Diagnosis Comments CORONAVIRUS (COVID 19) Routine 02/08/2021 6:57 AM CDT Pre-operative laboratory examination documented in this encounter Results * PRE-SURGICAL/PRE-PROCEDURE CORONAVIRUS (COVID 19) (02/08/2021 6:57 AM CDT) SPEC DESCRIPTION NASOPHARYNGEAL SWAB 02/08/2021 6:57 AM CDT [facility] CORONAVIRUS SARS COV 2 PCR (RESP) NEGATIVE NEGATIVE 02/08/2021 9:06 PM CDT [facility] Comment: THE SARS-CoV-2 TEST HAS BEEN AUTHORIZED BY THE FDA UNDER AN EUA FOR USE BY AUTHORIZED LABORATORIES. PERFORMED BY NUCLEIC ACID AMPLIFICATION PCR FIRST TEST UNKNOWN 02/08/2021 6:57 AM CDT [facility] EMPLOYED IN HEALTHCARE NO 02/08/2021 6:57 AM CDT [facility] SYMPTOMATIC DEFINED BY CDC UNKNOWN 02/08/2021 6:57 AM CDT [facility] HOSPITALIZATION STATUS NO 02/08/2021 6:57 AM CDT [facility] PATIENT IN ICU NO 02/08/2021 6:57 AM CDT [facility] RESIDENT OF [facility] NO 02/08/2021 6:57 AM CDT [facility] NASOPHARYNGEAL SWAB / Unknown 02/08/2021 6:57 AM CDT Kilo Navarro MD MICROBIOLOGY - GENERAL MICHELLE NASCIMENTO Final Result [facility] [address] [place] [address], [facility] [address] [place] [address], documented in this encounter Visit Diagnoses Diagnosis Pre-operative laboratory examination Pre-procedural laboratory examination documented in this encounter Additional Health Concerns Infection Onset Date Last Indicated Resolved Time COVID-19 Rule Out 02/08/2021 02/08/2021 02/08/2021 9:06 PM CDT documented as of this encounter Care Teams Edge Gluer Relationship Specialty [place] [address] [place] [phone] PCP - General FAMILY PRACTICE 04/06/16 Piyush Pandey MD [employer] Sales Coordinator CARDIOVASCULAR DISEASE 04/06/16 12/28/23 Sharmila Davis, DANNY, HOSPITAL CLERK-C [address] [place] [address] [place] [address] NURSE PRACTITIONER 01/04/17 04/03/24 Linda Block MD 619 [facility] [address] [place] [address] [employer] Sales Coordinator CLINICAL CARDIAC ELECTROPHYSIOLOGY 02/08/17 04/12/23 Jeff Grace MD 619 [facility] [address] [place] [address] Consulting Physician INTERNAL MEDICINE 02/20/19 3 Zaki Ortiz MD [address] [place] [phone] Consulting Physician PULMONARY DISEASE 07/12/19 documented as of this encounter
--- OUTSIDE RECORDS SUMMARY | 2024-09-03 20:42 | XMS_ITS | Encounter Summary ---
Author Organization [facility] Address [facility] [place] [place] [address] [place] [address] Care Team Providers Care Big Data Engineer Name Role Phone Piyush Pandey MD Unavailable Unavailabl e Megan Infante MD Primary Care Provider [phone] Sharmila Davis APRN VOLLEYBALL REFEREE-C Unavailable Linda Block MD Unavailable [phone] Jeff Grace MD Unavailable Zaki Ortiz MD Unavailable [phone] Reason for Visit * Auth/Cert Specialty Diagnoses / Procedures Referred By Yung sequeira Referred To Contact Diagnoses DYSPHAGIA, HISTORY OF POLYPS Procedures UPPER GI ENDOSCOPY,BIOPSY COLONOSCOPY,DIAGNOSTIC EGD COLONOSCOPY DIAGNOSTIC WITH/WITHOUT SPECIMEN BRUSH/WASH Referral ID Status Reason Start Date Expiration Date Visits Re quested Visits Authorized [id number] 1 1 Encounter Details Date Type Department Care Team (Late st Contact Info) Description 03/18/2021 10:10 AM CDT Anesthesia Event [place] [address] [place] [address] Jaya Eastman MD [address] [place] [address] [id number] Anesthesia Record Procedure Summary Procedure Name Responsible Anesthesiologist Anesthesia Start Time Anesthesia Stop Time EGD with biopsies, polypectomy, and dilation (44,48,52) (Esophagus) 03/18/21 1010 03/18/21 1035 Events Date Time Event Comment 03/18/2021 0912 AN CYLINDER HONER Prepped 0912 AN Anesthesia Prepped 0921 1010 [...] st Contact Info) Description 09/25/2024 2:00 PM [address]RECKER Appointment [facility] [address] [place], [place] [phone] Zayra Powell, IP/MOSAIC TECHNICIAN [address] [place] [address] 10/16/2024 3:30 PM HOGSHEAD WRECKER Office Visit [facility] [address] [place] [address] Brit Gonzáles MD 619 [place], [place] [address] documented as of this encounter Visit Diagnoses [...] mL/hr documented in this encounter Care Teams Big Data Engineer Relationship Specialty Start Date End Date Megan Infante MD [address] [facility] [place] [address] PCP - General FAMILY PRACTICE 04/06/16 Piyush Pandey MD [place] Pants Presser Automatic CARDIOVASCULAR DISEASE 04/06/16 12/28/23 Sharmila Davis APRN, VOLLEYBALL REFEREE-C [address] [address] NURSE PRACTITIONER 01/04/17 04/03/24 Linda Block MD [address] [address] [place] Pants Presser Automatic CLINICAL CARDIAC ELECTROPHYSIOLOGY 02/08/17 04/12/23 Jeff Grace MD [address] [address] Consulting Physician INTERNAL MEDICINE 02/20/19 3 Zaki Ortiz MD [address] [address] Consulting Physician PULMONARY DISEASE 07/12/19 documented as of this encounter
--- OUTSIDE RECORDS SUMMARY | 2024-09-03 20:42 | XMS_ITS | Encounter Summary ---
Author Organization [facility] Address [address] [place] [address]. [place] [address] [place] [address] Care Team Providers Care Petrology Teacher Name Role Phone Piyush Pandey MD Unavailable Unavailabl e Megan Ifnante MD Primary Care Provider [phone] Sharmila Davis APRN, SENIOR GAMEMASTER-C Unavailable Linda Block MD Unavailable [phone] Jeff Grace MD Unavailable Zaki Ortiz MD Unavailable [phone] Encounter Details Date Type Department Care Team (Late st Contact Info) Description 02/18/2021 11:59 AM CDT - 02/18/2021 11:59 PM CDT Hospital Encounter [facility] [address] [facility] [place] [address] Enoch Barnes MD [address] [place] [address] Discharge Disposition: Home or Self [...] st Contact Info) Description 09/25/2024 2:00 PM DEVELOPMENT LEAD Appointment [facility] [address] [facility] [place] [address] Zayra Powell, WINDOW SHADE INSTALLER 12[address] [facility] [address] 10/16/2024 3:30 PM DEVELOPMENT LEAD Office Visit [facility] [address] [facility] [place] [address] Brit Gonzáles MD 619 [place] [address] documented as of this encounter Procedures Procedure Name Priority Date/Time Associated Diagnosis Comments XR CHEST PA+LAT Routine 02/18/2021 12:27 PM CDT Pulmonary hypertension ([facility]) documented in this encounter Results * XR [...] this encounter Visit Diagnoses Diagnosis Pulmonary hypertension ([facility]/HCC) Other chronic pulmonary heart diseases documented in this encounter Care Teams Petrology Teacher Relationship Specialty Start Date End Date Megan Infante MD [address] [facility] [place] [address] PCP - General FAMILY PRACTICE 04/06/16 Piyush Pandey MD [place] Sap Technical Developer CARDIOVASCULAR DISEASE 04/06/16 12/28/23 Sharmila Davis, SATELLITE COMMUNICATIONS ENGINEER, SENIOR GAMEMASTER-C [address] [place] [address] NURSE PRACTITIONER 01/04/17 04/03/24 Linda Block MD [address] [place] [address] [place] Sap Technical Developer CLINICAL CARDIAC ELECTROPHYSIOLOGY 02/08/17 04/12/23 Jeff Grace MD [address] [place] [address] Consulting Physician INTERNAL MEDICINE 02/20/19 3 Zaki Ortiz MD [address] [place] [address] Consulting Physician PULMONARY DISEASE 07/12/19 documented as of this encounter
--- OUTSIDE RECORDS SUMMARY | 2024-09-03 20:42 | XMS_ITS | Encounter Summary ---
Author Organization [facility] Address [address] [place] [address]. [place] [address] [place] [address] Care Team Providers Care Adolescent Coordinator Name Role Phone Piyush Pandey MD Unavailable Unavailabl e Megan Infante MD Primary Care Provider [phone] Sharmila Davis APRN TIME STUDY OBSERVER-C Unavailable Linda Block MD Unavailable [phone] Jeff Grace MD Unavailable Zaki Ortiz MD Unavailable [phone] Reason for Visit * Reason Onset Date Comments Record Request 04/17/2021 Encounter Details Date Type Department Care Team (Late st Contact Info) Description 04/17/2021 Telephone [facility] Multispecialty [address] [address] Damaso Barnes MD 1730 [place] [address] Record Request Social History Tobacco [...] AM CDT Requested A1C lab result from [facility] documented in this encounter Plan of Treatment Upcoming Encounters Date Type Department Care Team (Late st Contact Info) Description 09/25/2024 2:00 PM CERTIFIED MEDICATION AIDE Appointment [facility] [address] [place] [address] Zayra Powell, EMBEDDED FIRMWARE ENGINEER [address] [place] [address] 10/16/2024 3:30 PM CERTIFIED MEDICATION AIDE Office Visit [facility] [address] [place] [address] Brit Gonzáles MD 617 [place] [address] documented as of this encounter Visit Diagnoses Not on filedocumented in this encounter Care Teams Adolescent Coordinator Relationship Specialty Start Date End Date Megan Infante MD [address] [place] [address] PCP - General FAMILY PRACTICE 04/06/16 Piyush Panedy MD [place] Gunner'S Mate M CARDIOVASCULAR DISEASE 04/06/16 12/28/23 Sharmila Davis, THERMAL CUTTING MACHINE OPERATOR, TIME STUDY OBSERVER-C [address] [place] [address] [address] [place] [address] NURSE PRACTITIONER 01/04/17 04/03/24 Linda Block MD [address] [place] [address] Social Circle Gunner'S Mate M CLINICAL CARDIAC ELECTROPHYSIOLOGY 02/08/17 04/12/23 Jeff Grace MD [address] [facility] [address] [place] [address] Consulting Physician INTERNAL MEDICINE 02/20/19 3 Zaki Ortiz MD [address] [facility] [address] [place] [address] Consulting Physician PULMONARY DISEASE 07/12/19 documented as of this encounter
--- OUTSIDE RECORDS SUMMARY | 2024-09-03 20:42 | XMS_ITS | Encounter Summary ---
Author Organization [facility] Address [address] [place] [address]. [place] [address] [place] [address] Care Team Providers Care Supervisor Loading Name Role Phone Piyush Pandey MD Unavailable Unavailabl e Megan Infante MD Primary Care Provider [phone] Sharmila Davis APRN, PATHOLOGY TECHNICIAN-C Unavailable [phone] Linda Block MD Unavailable [phone] Jeff Grace MD Unavailable Zaki Ortiz MD Unavailable [phone] Encounter Details Date Type Department Care Team [...] COVID-19? No / Unsure 10/05/2020 8:07 AM TUG BOAT ENGINEER documented as of this encounter Plan of Treatment Upcoming Encounters Date Type Department Care Team (Late st Contact Info) Description 09/25/2024 2:00 PM TUG BOAT ENGINEER Appointment [facility] [address] [place] [address] Zayra Powell, ASPHALT DISTRIBUTOR TENDER [address] [place] [address] 10/16/2024 3:30 PM TUG BOAT ENGINEER [facility] [address] [place] [address] Brit Gonzáles MD 619 [place], [place] [phone] documented as of this encounter Visit Diagnoses Not on filedocumented in this encounter Additional Health Concerns Infection Onset Date Last Indicated Resolved Time COVID-19 Rule Out 10/05/2020 10/05/2020 10/06/2020 11:37 AM TUG BOAT ENGINEER documented as of this encounter Care Teams Supervisor Loading Relationship Specialty Start Date End Date Megan Infante MD [address] [place] [address] PCP - General FAMILY PRACTICE 04/06/16 Piyush Pandey MD [place] Washing Machine Repairer CARDIOVASCULAR DISEASE 04/06/16 12/28/23 Sharmila Davis, CATCHER HELPER, PATHOLOGY TECHNICIAN-C [address] [facility] [address] [place] [address] NURSE PRACTITIONER 01/04/17 04/03/24 Linda Block MD [address] [facility] [address] [place] [address] [place] Washing Machine Repairer CLINICAL CARDIAC ELECTROPHYSIOLOGY 02/08/17 04/12/23 Jeff Grace MD [address] [facility] [address] [place] [address] Consulting Physician INTERNAL MEDICINE 02/20/19 3 Zaki Ortiz MD [address] [place] [address] Consulting Physician PULMONARY DISEASE 07/12/19 documented as of this encounter
--- OUTSIDE RECORDS SUMMARY | 2024-09-03 20:42 | XMS_ITS | Encounter Summary ---
Author Organization [facility] Address [address] [place] [address]. [place] [address] [place] [address] Care Team Providers Care Tile Finisher Name Role Phone Piyush Pandey MD Unavailable Unavailabl e Megan Infante MD Primary Care Provider [phone] Sharmila Davis APRN AOC PLANS INTELLIGENCE OFFICER-C Unavailable [phone] Linda Block MD Unavailable [phone] Jeff Grace MD Unavailable Zaki Ortiz MD Unavailable [phone] Reason for Visit * Reason Onset Date Comments Returned Call 10/24/2020 Encounter Details Date Type Department Care Team (Late st Contact Info) Description 10/24/2020 Telephone [facility] Medical Group Multispecialty [address] [address] Damaso Barnes MD 1730 [place] [address] Returned Call Social History Tobacco [...] 10/31/2020 9:01 AM CST Has been seen K REPAIR TECHNICIAN * Gilma Sanchez - 10/24/2020 4:48 PM CST Pt returned call. He wasn't home when you called. K REPAIR TECHNICIAN documented in this encounter Plan of Treatment Upcoming Encounters Date Type Department Care Team (Late st Contact Info) Description 09/25/2024 2:00 PM CLOCK REPAIR TECHNICIAN Appointment [facility] [address] [place] [address] Zayra Powell, NUTRITION WORKER [address] [place] [address] 10/16/2024 3:30 PM CLOCK REPAIR TECHNICIAN Office Visit [facility] [address] [place] [address] Brit Gonzáles MD 619 [place] [address] documented as of this encounter Visit Diagnoses Not on filedocumented in this encounter Additional Health Concerns Infection Onset Date Last Indicated Resolved Time COVID-19 Rule Out 02/08/2021 02/08/2021 02/08/2021 9:06 PM CDT documented as of this encounter Care Teams Tile Finisher Relationship Specialty Start Date End Date Megan Infante MD [address] [place] [address] PCP - General FAMILY PRACTICE 04/06/16 Piyush Pandey MD [place] Strike Warfare/Missile Systems Officer CARDIOVASCULAR DISEASE 04/06/16 12/28/23 Sharmila Davis APRN, AOC PLANS INTELLIGENCE OFFICER-C [address] [facility] [address] [place] [address] NURSE PRACTITIONER 01/04/17 04/03/24 Linda Block MD [address] [facility] [address] [place] [phone] [place] Strike Warfare/Missile Systems Officer CLINICAL CARDIAC ELECTROPHYSIOLOGY 02/08/17 04/12/23 Jeff Grace MD [address] [facility] [address] [place] [phone] Consulting Physician INTERNAL MEDICINE 02/20/19 3 Zaki Ortiz MD [address] [facility] [address] [place] [address] Consulting Physician PULMONARY DISEASE 07/12/19 documented as of this encounter
--- OUTSIDE RECORDS SUMMARY | 2024-09-03 20:42 | XMS_ITS | Encounter Summary ---
Author Organization [facility] Address [facility] [place] [address] [place] [address] Care Team Providers Care High Climber Name Role Phone Piyush Pandey MD Unavailable Unavailabl e Megan Infante MD Primary Care Provider [phone] Sharmila Davis APRN, SKILLED NURSING CASE MANAGER-C Unavailable Linda Block MD Unavailable [phone] Jeff Grace MD Unavailable Zaki Ortiz MD Unavailable [phone] Encounter Details Date Type Department Care Team (Late st Contact Info) Description 11/05/2020 Orders Only [facility] Medical [facility] Multispecialty [facility] [address] [place] [address] Damaso Barnes MD 1730 [place] [address] Social History Tobacco Use Types [...] COVID-19? No / Unsure 10/30/2020 2:44 PM LOCKSTITCH CUP SETTER documented as of this encounter Plan of Treatment Upcoming Encounters Date Type Department Care Team (Late st Contact Info) Description 09/25/2024 2:00 PM LOCKSTITCH CUP SETTER Appointment [facility] [address] [place] [address] Zayra Powell, JUDICIAL REPORTER [address] [facility] [place] [address] 10/16/2024 3:30 PM LOCKSTITCH CUP SETTER Office Visit [facility] [address] [facility] [place] [address] Brit Gonzáles MD 619 [place], [place] [phone] documented as of this encounter Visit Diagnoses Diagnosis 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) documented in this encounter Care Teams High Climber Relationship Specialty Start Date End Date Megan Infante MD [address] [facility] [place] [address] PCP - General FAMILY PRACTICE 04/06/16 Piyush Pandey MD [place] Transformer Mechanic CARDIOVASCULAR DISEASE 04/06/16 12/28/23 Sharmila Davis APRN, SKILLED NURSING CASE MANAGER-C 619 [facility] [address] [place] [address] NURSE PRACTITIONER 01/04/17 04/03/24 Linda Block MD 619 [facility] [address] [place] [address] [place] Transformer Mechanic CLINICAL CARDIAC ELECTROPHYSIOLOGY 02/08/17 04/12/23 Jeff Grace MD [address] [place] [address] Consulting Physician INTERNAL MEDICINE 02/20/19 3 Zaki Ortiz MD [address] [place] [address] Consulting Physician PULMONARY DISEASE 07/12/19 documented as of this encounter
--- OUTSIDE RECORDS SUMMARY | 2024-09-03 20:42 | XMS_ITS | Encounter Summary ---
Author Organization [facility] Address [address] [place] [address]. [place] [address] [place] [address] Care Team Providers Care Physical Therapy Assistant Name Role Phone Piyush Pandey MD Unavailable Unavailabl e Megan Infante MD Primary Care Provider [phone] Sharmila Davis APRN 21 DEALER-C Unavailable Linda Block MD Unavailable [phone] Jeff Grace MD Unavailable Zaki Ortiz MD Unavailable [phone] Reason for Visit * Reason Onset Date Comments Other 10/23/2020 refuses appt Encounter Details Date Type Department Care Team (Late st Contact Info) Description 10/23/2020 Telephone [facility] [address] [place] [address] Piyush Pandey MD Other (refuses [...] COVID-19? No / Unsure 10/10/2020 6:37 AM RADIOLOGIC TECHNOLOGIST CHIEF documented as of this encounter Progress Notes * Megan Lay RN - 10/23/2020 2:54 PM CST Noted. Referred to Dr. Barnes with [facility] pulm. Referral entered. They will contact pt to schedule. OLOGIC TECHNOLOGIST CHIEF * Deanne Baum CMA - 10/23/2020 2:41 PM CST Rita with Dr. Callahan & Dr. Glez called and stated that pt does not want to come to [facility] to see a addressograph operator, and that pt wants to see someone closer to where he lives. She stated that none of their pulmonologists see pts close to where he lives. Informed Rita that I will send a msg to Dr. Pandey's nurse. OLOGIC TECHNOLOGIST CHIEF documented in this encounter Plan of Treatment Upcoming Encounters Date Type Department Care Team (Late st Contact Info) Description 09/25/2024 2:00 PM RADIOLOGIC TECHNOLOGIST CHIEF Appointment [facility] [address] [place] [address] Zayra Powell, TRANSPORTER DRIVER [address] [place] [address] 10/16/2024 3:30 PM RADIOLOGIC TECHNOLOGIST CHIEF Office Visit [facility] [address] [place] [phone] Brit Gonzáles MD [address] [place] [address] documented as of this encounter Visit Diagnoses Not on filedocumented in this encounter Care Teams Physical Therapy Assistant Relationship Specialty Start Date End Date Megan Infante MD [address] [place] [phone] PCP - General FAMILY PRACTICE 04/06/16 Piyush Pandey MD [place] Assembler Adjuster CARDIOVASCULAR DISEASE 04/06/16 12/28/23 Sharmila Davis APRN, 21 DEALER-C [address] [facility] [address] [place] [phone] NURSE PRACTITIONER 01/04/17 04/03/24 Linda Block MD [address] [address] [place] Assembler Adjuster CLINICAL CARDIAC ELECTROPHYSIOLOGY 02/08/17 04/12/23 Jeff Grace MD [address] [address] Consulting Physician INTERNAL MEDICINE 02/20/19 3 Zaki Ortiz MD [address] [facility] [address] [address] Consulting Physician PULMONARY DISEASE 07/12/19 documented as of this encounter
--- OUTSIDE RECORDS SUMMARY | 2024-09-03 20:42 | XMS_ITS | Encounter Summary ---
Author Organization [facility] Address [address] [place] [address]. [place] [address] [place] [address] Care Team Providers Care Branch Officer Name Role Phone Piyush Pandey MD Unavailable Unavailabl e Megan Infante MD Primary Care Provider [phone] Sharmila Davis APRN, NP-C Unavailable [phone] Linda Block MD Unavailable [phone] Jeff Grace MD Unavailable Zaki Ortiz MD Unavailable [phone] Reason for Visit * Reason Comments Hospital H&P (SCAN) Encounter Details Date Type Department Care Team (Late st Contact Info) Description 11/28/2020 Scan [facility] Information Services [facility] [place] [address] Scanned, Documents Hospital H&P (SCAN) Social History [...] COVID-19? No / Unsure 10/30/2020 2:44 PM MARKET CONSULTANT documented as of this encounter Plan of Treatment Upcoming Encounters Date Type Department Care Team (Late st Contact Info) Description 09/25/2024 2:00 PM MARKET CONSULTANT Appointment [facility] [address] [facility] [place] [address] Zayra Powell, RECYCLABLE MATERIALS COLLECTOR [address] [facility] [address] [place] [phone] 10/16/2024 3:30 PM MARKET CONSULTANT Office Visit [facility] [address] [facility] [place] [address] Brit Gonzáles MD [address] [place] [address] documented as of this encounter Visit Diagnoses Not on filedocumented in this encounter Care Teams Branch Officer Relationship Specialty Start Date End Date Megan Infante MD [address] [facility] [place] [address] PCP - General FAMILY PRACTICE 04/06/16 Piyush Pandey MD [place] Analytical Research Chemist CARDIOVASCULAR DISEASE 04/06/16 12/28/23 Sharmila Davis, WEAVE DEFECT CHARTING CLERK, GUT CLEANER-C [address] [facility] [address] [place] [address] NURSE PRACTITIONER 01/04/17 04/03/24 Linda Block MD 619 [facility] [address] [place] [phone] [place] Analytical Research Chemist CLINICAL CARDIAC ELECTROPHYSIOLOGY 02/08/17 04/12/23 Jeff Grace MD [address] [place] [phone] Consulting Physician INTERNAL MEDICINE 02/20/19 3 Zaki Ortiz MD [address] [place] [address] Consulting Physician PULMONARY DISEASE 07/12/19 documented as of this encounter
--- OUTSIDE RECORDS SUMMARY | 2024-09-03 20:42 | XMS_ITS | Encounter Summary ---
Author Organization [facility] Address [address] [place] [address]. [place] [address] [place] [address] Care Team Providers Care Professor Of Biology Name Role Phone Piyush Pandey MD Unavailable Unavailabl e Megan Infante MD Primary Care Provider [phone] Sharmila Davis APRN, VECTOR CONTROL ASSISTANT-C Unavailable Linda Block MD Unavailable [phone] Jeff Grace MD Unavailable Zaki Ortiz MD Unavailable [phone] Encounter Details Date Type Department Care Team (Late st Contact Info) Description 10/15/2020 Orders Only [facility] [address] [place] [phone] Abstract, Doc [facility] Social History Tobacco Use [...] COVID-19? No / Unsure 10/10/2020 6:37 AM DIRECTOR OF GLOBAL MARKETING documented as of this encounter Plan of Treatment Upcoming Encounters Date Type Department Care Team (Late st Contact Info) Description 09/25/2024 2:00 PM DIRECTOR OF GLOBAL MARKETING Appointment [facility] [address] [place] [address] Zayra Powell, MIRROR DEPARTMENT SUPERVISOR [address] [place], [place] [phone] 10/16/2024 3:30 PM DIRECTOR OF GLOBAL MARKETING Office Visit [facility] [address] [place] [address] Brit Gonzáles MD 619 [place], [place] [phone] documented as of this encounter Procedures Procedure Name Priority Date/Time Associated Diagnosis Comments CT HEAD WO CON Routine 07/03/2020 documented in this encounter Results * CT HEAD WO CON (07/03/2020) Anatomical Region Laterality Modality Head Computed Tomogra phy us Doc [facility] Abstract CT Final Result documented in this encounter Visit Diagnoses Not on filedocumented in this encounter Care Teams Professor Of Biology Relationship Specialty Start Date End Date Megan Infante MD [address] [facility] [place] [address] PCP - General FAMILY PRACTICE 04/06/16 Piyush Pandey MD [place] Machine Sweeper Brush Maker CARDIOVASCULAR DISEASE 04/06/16 12/28/23 Sharmila Davis APRN, VECTOR CONTROL ASSISTANT-C [address] [place] [phone] NURSE PRACTITIONER 01/04/17 04/03/24 Linda Block MD [address] [place] [address] [place] Machine Sweeper Brush Maker CLINICAL CARDIAC ELECTROPHYSIOLOGY 02/08/17 04/12/23 Jeff Grace MD [address] [place] [address] Consulting Physician INTERNAL MEDICINE 02/20/19 3 Zaki Ortiz MD [address] [place] [address] Consulting Physician PULMONARY DISEASE 07/12/19 documented as of this encounter
--- OUTSIDE RECORDS SUMMARY | 2024-09-03 20:42 | XMS_ITS | Encounter Summary ---
Author Organization [facility] Address [address] [place] [address]. [place] [address] [place] [address] Care Team Providers Care Teacher Specialist Name Role Phone Piyush Pandey MD Unavailable Unavailabl e Megan Infante MD Primary Care Provider [phone] Sharmila Davis APRN, NP-C Unavailable Linda Block MD Unavailable [phone] Jeff Grace MD Unavailable Zaki Ortiz MD Unavailable [phone] Reason for Visit * Reason Onset Date Comments Referral 10/23/2020 Encounter Details Date Type Department Care Team (Late st Contact Info) Description 10/23/2020 Telephone [facility] [address] [place] [phone] Piyush Pandey MD Referral Social History Tobacco [...] COVID-19? No / Unsure 10/10/2020 6:37 AM CUSTOMER SUPPORT REPRESENTATIVE documented as of this encounter Progress [...] see if he is ready to schedule. OMER SUPPORT REPRESENTATIVE * Megan Lay RN - 10/23/2020 11:02 AM CST Spoke to [facility] pulmonary to refer pt for pulmonary HTN and sleep apnea. They will contact pt to schedule. Records faxed to [phone]. OMER SUPPORT REPRESENTATIVE documented in this encounter Plan of Treatment Upcoming Encounters Date Type Department Care Team (Late st Contact Info) Description 09/25/2024 2:00 PM CUSTOMER SUPPORT REPRESENTATIVE Appointment [facility] [address] [place] [address] Zayra Powell, COMBINATION WINDOW INSTALLER [address] [place] [address] 10/16/2024 3:30 PM CUSTOMER SUPPORT REPRESENTATIVE Office Visit [facility] [address] [place] [phone] Brit Gonzáles MD [address] [place] [address] documented as of this encounter Visit Diagnoses Not on filedocumented in this encounter Care Teams Teacher Specialist Relationship Specialty Start Date End Date Megan Infante MD [address] [place] [phone] PCP - General FAMILY PRACTICE 04/06/16 Piyush Pandey MD [place] Watch Dial Stoner CARDIOVASCULAR DISEASE 04/06/16 12/28/23 Sharmila Davis APRN, AMBULANCE MECHANIC-C [address] [facility] [address] [place] [phone] NURSE PRACTITIONER 01/04/17 04/03/24 Linda Block MD [address] [facility] [address] [phone] [place] Watch Dial [place] CLINICAL CARDIAC ELECTROPHYSIOLOGY 02/08/17 04/12/23 Jeff Grace MD [address] [facility] [address] [place] [phone] Consulting Physician INTERNAL MEDICINE 02/20/19 3 Zaki Ortiz MD [address] [facility] [facility] [address] [place] [phone] Consulting Physician PULMONARY DISEASE 07/12/19 documented as of this encounter
--- OUTSIDE RECORDS SUMMARY | 2024-09-03 20:42 | XMS_ITS | Encounter Summary ---
Author Organization [facility] Address [address] [place] [address]. [place] [address] [place] [address] Care Team Providers Care Sprinkler Fitter Apprentice Name Role Phone Piyush Pandey MD Unavailable Unavailabl e Megan Infante MD Primary Care Provider [phone] Sharmila Davis APRN, NP-C Unavailable [phone] Linda Block MD Unavailable [phone] Jeff Grace MD Unavailable Zaki Ortiz MD Unavailable [phone] Reason for Visit * Reason Comments Hospital H&P (SCAN) Encounter Details Date Type Department Care Team (Late st Contact Info) Description 11/28/2020 Scan [facility] Information Services [facility] [place] [address] Scanned, Documents Hospital H&P (SCAN) Social History [...] st Contact Info) Description 09/25/2024 2:00 PM ACADEMY EDUCATION DIRECTOR [facility]ointment [facility] [address] [facility] [place] [address] Zayra Powell, BUSINESS OBJECTS ANALYST [address] [facility] [place] [address] 10/16/2024 3:30 PM ACADEMY EDUCATION DIRECTOR Office Visit [facility] [address] [address] Brit Gonzáles MD [address] [place], [place] [phone] documented as of this encounter Visit Diagnoses Not on filedocumented in this encounter Additional Health Concerns Infection Onset Date Last Indicated Resolved Time COVID-19 Rule Out 02/08/2021 02/08/2021 02/08/2021 9:06 PM CDT documented as of this encounter Care Teams Sprinkler Fitter Apprentice Relationship Specialty Start Date End Date Megan Infante MD [address] [facility] [place] [address] PCP - General FAMILY PRACTICE 04/06/16 Piyush Pandey MD [place] Splitting Machine Operator CARDIOVASCULAR DISEASE 04/06/16 12/28/23 Sharmila Davis APRN, DRUM DYEING MACHINE OPERATOR-C [address] [facility] [address] [place] [phone] NURSE PRACTITIONER 01/04/17 04/03/24 Linda Block MD 619 [facility] [address] [place] [phone] [place] Splitting Machine Operator CLINICAL CARDIAC ELECTROPHYSIOLOGY 02/08/17 04/12/23 Jeff Grace MD [address] [place] [place] [address] Consulting Physician INTERNAL MEDICINE 02/20/19 3 Zaki Ortiz MD [address] [place] [address] Consulting Physician PULMONARY DISEASE 07/12/19 documented as of this encounter
--- OUTSIDE RECORDS SUMMARY | 2024-09-03 20:42 | XMS_ITS | Encounter Summary ---
Author Organization [facility] Address [address] [place] [address]. [place] [address] [place] [address] Care Team Providers Care Robotype Operator Name Role Phone Piyush Pandey MD Unavailable Unavailabl e Megan Infante MD Primary Care Provider [phone] Sharmila Davis APRN [place] GROUNDS SUPERINTENDENT-C Unavailable Linda Block MD Unavailable [phone] Jeff Grace MD Unavailable Zaki Ortiz MD Unavailable [phone] Encounter Details Date Type Department Care Team (Late st Contact Info) Description 02/08/2021 Orders Only [facility] [address] [place] [address] Kilo Navarro MD [address] [place] [address] Social History Tobacco Use Types [...] st Contact Info) Description 09/25/2024 2:00 PM LOAN BROKER Appointment [facility] [address] [place] [address] Zayra Powell, DIRECTOR OF HOME ECONOMICS [address] [place] [address] 10/16/2024 3:30 PM LOAN BROKER Office Visit [facility] [address] [place] [phone] Brit Gonzáles MD [address] [place] [address] documented as of this encounter Results * PRE-SURGICAL/PRE-PROCEDURE CORONAVIRUS (COVID 19) (02/08/2021 6:57 AM CDT) SPEC DESCRIPTION NASOPHARYNGEAL SWAB 02/08/2021 6:57 AM CDT [facility] CORONAVIRUS SARS COV 2 PCR (RESP) NEGATIVE NEGATIVE 02/08/2021 9:06 PM CDT [facility] Comment: THE SARS-CoV-2 TEST HAS BEEN AUTHORIZED BY THE FDA UNDER AN EUA FOR USE BY AUTHORIZED LABORATORIES. PERFORMED BY NUCLEIC ACID AMPLIFICATION PCR FIRST TEST UNKNOWN 02/08/2021 6:57 AM CDT [facility] EMPLOYED IN HEALTHCARE NO 02/08/2021 6:57 AM CDT [facility] SYMPTOMATIC DEFINED BY CDC UNKNOWN 02/08/2021 6:57 AM CDT [facility] HOSPITALIZATION STATUS NO 02/08/2021 6:57 AM CDT [facility] PATIENT IN ICU NO 02/08/2021 6:57 AM CDT [facility] RESIDENT OF [facility] NO 02/08/2021 6:57 AM CDT [facility] NASOPHARYNGEAL SWAB / Unknown 02/08/2021 6:57 AM CDT us Kilo Navarro MD MICROBIOLOGY - GENERAL ORDERA BLES Final Result [facility] [address] [place] [address], [facility] [address] [place] [address], [place] [phone] documented in this encounter Visit Diagnoses Diagnosis Pre-operative laboratory examination- Primary Pre-procedural laboratory examination documented in this encounter Additional Health Concerns Infection Onset Date Last Indicated Resolved Time COVID-19 Rule Out 02/08/2021 02/08/2021 02/08/2021 9:06 PM CDT documented as of this encounter Care Teams Robotype Operator Relationship Specialty Start Date End Date Megan Infante MD [address] [place] [address] PCP - General FAMILY PRACTICE 04/06/16 Piyush Pandey MD [place] Carton Maker CARDIOVASCULAR DISEASE 04/06/16 12/28/23 Sharmila Davis APRN, [place] GROUNDS SUPERINTENDENT-C [address] [phone] NURSE PRACTITIONER 01/04/17 04/03/24 Linda Block MD [address] [phone] [place] Carton Maker CLINICAL CARDIAC ELECTROPHYSIOLOGY 02/08/17 04/12/23 Jeff Grace MD [address] [address] Consulting Physician INTERNAL MEDICINE 02/20/19 3 Zaki Ortiz MD [address] [facility] [address] [place] [address] Consulting Physician PULMONARY DISEASE 07/12/19 documented as of this encounter
--- OUTSIDE RECORDS SUMMARY | 2024-09-03 20:42 | XMS_ITS | Encounter Summary ---
Author Organization [facility] Address [address] [place] [address]. [place] [address] [place] [address] Care Team Providers Care Vat Overhauler Name Role Phone Piyush Pandey MD Unavailable Unavailabl e Megan Infante MD Primary Care Provider [phone] Sharmila Davis APRN, DOCTOR OF OPTOMETRY-C Unavailable [phone] Linda Block MD Unavailable [phone] Jeff Grace MD Unavailable Zaki Ortiz MD Unavailable [phone] Reason for Visit * Reason Comments Follow Up Encounter Details Date Type Department Care Team (Late st Contact Info) Description 04/02/2021 10:40 AM CDT Office Visit [facility] [address] [place] [address] Enoch Barnes MD [address] [place] [address] Follow Up Social History Tobacco [...] open or closed toe Dx I83.893 ??? Qzluymwrscd-Xkounphyx-Firptp 100-62.5-25 MCG/INH AEROSOL POWDER, BREATH ACTIVATED Inhale [...] performed by Kilo Navarro MD at [facility] OR ??? HIP ARTHROPLASTY Left ??? [...] st Contact Info) Description 09/25/2024 2:00 PM BOOK BINDER Appointment [facility] [address] [place] [address] Zayra Powell, PUBLIC POLICY ANALYST [address] [place] [address] 10/16/2024 3:30 PM BOOK BINDER Office Visit [facility] [address] [place] [address] Brit Gonzáles MD [address]19 [place] [address] documented as of this encounter Visit Diagnoses Diagnosis Pulmonary hypertension (CMS/HCC HHS/HCC)- Primary Other chronic pulmonary heart diseases Moderate persistent asthma without complication (HHS/HCC) Unspecified asthma Mild persistent asthma without complication (HHS/HCC) Unspecified asthma documented in this encounter Care Teams Vat Overhauler Relationship Specialty Start Date End Date Megan Infante MD [address] [place] [address] PCP - General FAMILY PRACTICE 04/06/16 Piyush Pandey MD [place] Radiologic Technologist CARDIOVASCULAR DISEASE 04/06/16 12/28/23 Sharmila Davis, DANNY, DOCTOR OF OPTOMETRY-C [address] [facility] [address] [place] [address] NURSE PRACTITIONER 01/04/17 04/03/24 Linda Block MD 6[address] [facility] [address] [phone] [place] Radiologic Technologist CLINICAL CARDIAC ELECTROPHYSIOLOGY 02/08/17 04/12/23 Jeff Grace MD 619 [facility] [address] [phone] Consulting Physician INTERNAL MEDICINE 02/20/19 3 Zaki Ortiz MD 619 [facility] [address] [phone] Consulting Physician PULMONARY DISEASE 07/12/19 documented as of this encounter
--- OUTSIDE RECORDS SUMMARY | 2024-09-03 20:42 | XMS_ITS | Encounter Summary ---
Author Organization [facility] Address [address] [place] [address]. [place] [address] [place] [address] Care Team Providers Care Learning Solutions Specialist Name Role Phone Piyush Pandey MD Unavailable Unavailabl e Megan Infante MD Primary Care Provider [phone] Sharmila Davis APRN, ADMINISTRATIVE SERVICES DIRECTOR-C Unavailable Linda Block MD Unavailable [phone] Jeff Grace MD Unavailable Zaki Ortiz MD Unavailable [phone] Encounter Details Date Type Department Care Team (Late st Contact Info) Description 10/30/2020 3:27 PM CARDIOVASCULAR OPERATING ROOM NURSE - 10/30/2020 11:59 PM [facility] Hospital Encounter [facility] [address] [place] [address] Damaso Barnes MD [address] [place] [address] Discharge Disposition: Home or Self [...] COVID-19? No / Unsure 10/30/2020 2:44 PM CARDIOVASCULAR OPERATING ROOM NURSE documented as of this encounter Medications at [...] Contact Info) Description 09/25/2024 2:00 PM CARDIOVASCULAR OPERATING ROOM NURSE Appointment [facility] [address] [facility] [address] Zayra Powell, MANAGER OF ENVIRONMENTAL SERVICES [address] [facility] [place] [address] 10/16/2024 3:30 PM CARDIOVASCULAR OPERATING ROOM NURSE Office Visit [facility] [address] [place] [phone] Brit Gonzáles MD 619 [place], [place] [address] documented as of this encounter Procedures Procedure Name Priority Date/Time Associated Diagnosis Comments RETICULOCYTE CT, AUTO Routine 10/30/2020 3:45 PM CARDIOVASCULAR OPERATING ROOM NURSE Anemia, chronic disease SED RATE, ERYTHROCYTE (ESR) Routine 10/30/2020 3:45 PM CARDIOVASCULAR OPERATING ROOM NURSE Anemia, chronic disease PROTHROMBIN TIME, VENOUS Routine 10/30/2020 3:45 PM CARDIOVASCULAR OPERATING ROOM NURSE Anticoagulated LDH, LACTATE DEHYDROGENASE Routine 10/30/2020 3:45 PM CARDIOVASCULAR OPERATING ROOM NURSE Anemia, chronic disease CBC, AUTO, NO DIFF Routine 10/30/2020 3: 45 PM CARDIOVASCULAR OPERATING ROOM NURSE Anemia, chronic disease documented in this encounter Results * (ABNORMAL) PROTIME/INR, VENOUS (10/30/2020 3:45 PM CARDIOVASCULAR OPERATING ROOM NURSE) PROTIME 41.7(H) 9.4 - 12.5 SEC 10/30/2020 4:02 PM CARDIOVASCULAR OPERATING ROOM NURSE [facility] INR 3.7(H) 0.9 - 1.1 10/30/2020 4:02 PM CARDIOVASCULAR OPERATING ROOM NURSE [facility] 10/30/2020 3:45 PM CARDIOVASCULAR OPERATING ROOM NURSE us Damaso Barnes MD LABORATORY Final Res ult Performing Organization Address City/[facility]/ZIP Co de Phone Number [facility] [address] [place] [address], * LDH, LACTATE DEHYDROGENASE (10/30/2020 3:45 PM CARDIOVASCULAR OPERATING ROOM NURSE) LDH 176 85 - 227 UNITS/L 10/30/2020 4:45 PM CARDIOVASCULAR OPERATING ROOM NURSE [facility] 10/30/2020 3:45 PM CARDIOVASCULAR OPERATING ROOM NURSE us Damaso Barnes MD LABORATORY Final Res ult Performing Organization Address [facility] Co de Phone Number [facility] [address] [place] [address], [place] [phone] * (ABNORMAL) SED RATE, ERYTHROCYTE (ESR) (10/30/2020 3:45 PM CARDIOVASCULAR OPERATING ROOM NURSE) Pathologist [facility] ESR 47(H) 0 - 20 MM/HR 10/30/2020 4:40 PM CARDIOVASCULAR OPERATING ROOM NURSE [facility] Comment:NOTE: ANEMIA, IF PRE SENT, MAY CAUSE AN ELEVATED SEDIMENTATION RATE. 10/30/2020 3:45 PM CARDIOVASCULAR OPERATING ROOM NURSE us Damaso Barnes MD LABORATORY Final Res ult Performing Organization Address [facility] Co de Phone Number [facility] [address] [place] [address], [place] [phone] * RETICULOCYTE CT, AUTO (10/30/2020 3:45 PM CARDIOVASCULAR OPERATING ROOM NURSE) RETICULOCYTE COUNT 1.7 0.7 - 2.3 % 10/30/2020 4:03 PM CARDIOVASCULAR OPERATING ROOM NURSE [facility] ABSOLUTE RETICULOCYTE 0.07 0.03 - 0.11 x10'6/uL 10/30/2020 4:03 PM CARDIOVASCULAR OPERATING ROOM NURSE [facility] IMMATURE RETIC FRACTION 12.3 2.3 - 13.4 % 10/30/2020 4:03 PM CARDIOVASCULAR OPERATING ROOM NURSE [facility] RETIC HGB 33.3 28.0 - 35.0 PG 10/30/2020 4:03 PM CARDIOVASCULAR OPERATING ROOM NURSE [facility] 10/30/2020 3:45 PM CARDIOVASCULAR OPERATING ROOM NURSE us Damaso Barnes MD LABORATORY Final Res ult [facility] [address] [place] [address], * (ABNORMAL) CBC, AUTO, NO DIFF (10/30/2020 3:45 PM CARDIOVASCULAR OPERATING ROOM NURSE) WBC 9.1 4.5 - 10.8 x10'3/uL 10/30/2020 4:03 PM [facility] RBC 4.46(L) 4.50 - 6.10 x10'6/uL 10/30/2020 4:03 PM [facility] HGB 12.2(L) 13.0 - 18.0 G/DL 10/30/2020 4:03 PM [facility] HCT 39.4 37.0 - 52.0 % 10/30/2020 4:03 PM [facility] MCV 88.3 78.0 - 100.0 FL 10/30/2020 4:03 PM [facility] MCH 27.4 27.0 - 31.0 PG 10/30/2020 4:03 PM [facility] MCHC 31.0(L) 33.0 - 36.0 G/DL 10/30/2020 4:03 PM [facility] RDW 14.2 11.5 - 14.5 % 10/30/2020 4:03 PM [facility] PLT 236 150 - 350 x10'3/uL 10/30/2020 4:03 PM CARDIOVASCULAR OPERATING ROOM NURSE [facility] MPV 10.0 7.4 - 10.4 FL 10/30/2020 4:03 PM CARDIOVASCULAR OPERATING ROOM NURSE [facility] 10/30/2020 3:45 PM CARDIOVASCULAR OPERATING ROOM NURSE us Damaso Barnes MD LABORATORY Final Res ult [facility] [address] [place] [address], documented in this encounter Visit Diagnoses Diagnosis Anemia, chronic disease Anemia of other chronic disease Anticoagulated Encounter for long-term (current) use of anticoagulants documented in this encounter Care Teams Learning Solutions Specialist Relationship Specialty Start Date End Date Megan Infante MD [address] [facility] [place] [phone] PCP - General FAMILY PRACTICE 04/06/16 Piyush Pandey MD [place] CARDIOVASCULAR DISEASE 04/06/16 12/28/23 Sharmila Davis APRN, ADMINISTRATIVE SERVICES DIRECTOR-C [address] [place] [id number] [place] [address] NURSE PRACTITIONER 01/04/17 04/03/24 Linda Block MD [address] [facility] [address] [place] [address] [place] CLINICAL CARDIAC ELECTROPHYSIOLOGY 02/08/17 04/12/23 Jeff Grace MD [address] [facility] [address] [place] [address] Consulting Physician INTERNAL MEDICINE 02/20/19 3 Zaki Ortiz MD [address] [facility] [address] [place] [phone] Consulting Physician PULMONARY DISEASE 07/12/19 documented as of this encounter
--- OUTSIDE RECORDS SUMMARY | 2024-09-03 20:42 | XMS_ITS | Encounter Summary ---
Author Organization [facility] Address [facility] [place] [address] [place] [address] Care Team Providers Care Veterinary Inspector Name Role Phone Piyush Pandey MD Unavailable Unavailabl e Megan Infante MD Primary Care Provider [phone] Sharmila Davis APRN, NP-C Unavailable [phone] Linda Block MD Unavailable [phone] Jeff Grace MD Unavailable Zaki Ortiz MD Unavailable [phone] Reason for Visit * Auth/Cert Specialty Diagnoses / Procedures Referred By Yung sequeira Referred To Contact Diagnoses DYSPHAGIA, HISTORY OF POLYPS Procedures UPPER GI ENDOSCOPY,BIOPSY COLONOSCOPY,DIAGNOSTIC EGD COLONOSCOPY DIAGNOSTIC WITH/WITHOUT SPECIMEN BRUSH/WASH Referral ID Status Reason Start Date Expiration Date Visits Re quested Visits Authorized [id number] 1 1 Encounter Details Date Type Department Care Team (Late st Contact Info) Description 03/18/2021 8:15 AM CDT - 03/18/2021 11:15 AM T [facility] En[facility] [address] [place] [address] Gloria Navarro MD [address] [place] [address] Discharge Disposition: Home or Self Care [...] * Moderate Sedation in Adults Discharge Instructions (Namibian) * Gastritis Discharge Instructions (Namibian) documented in this encounter Medications at Time [...] - 03/18/2021 9:55 AM CDT Attending Provider: Gloira Navarro MD PCP: MEGAN INFANTE MD [place] [...] I83.893 ??? enoxaparin 40 MG/0.4ML Solution ??? Yepixbbszxt-Mynytzqgf-Cujyfy 100-62.5-25 MCG/INH AEROSOL POWDER, BREATH ACTIVATED Inhale [...] II (CMS/HCC) ??? Coronary artery disease involving [place] coronary artery of [place] heart without angina pectoris ??? COPD (chronic [...] Info) Description 09/25/2024 2:00 PM COMMERCIAL CREDIT SPECIALIST Appointment [facility] [address] [place], [place] [phone] Zayra Powell FNP [address] [place] [address] 10/16/2024 3:30 PM COMMERCIAL CREDIT SPECIALIST Office Visit [facility] [address] [place] [phone] Brit Gonzáles MD [address] [place] [address] documented as of this encounter Procedures Procedure [...] DESCRIPTION GASTRIC BIOPSY 03/18/2021 10:50 AM CDT [facility] SPECIAL REQUESTS NO SPECIAL REQUEST 03/18/2021 10:50 AM CDT [facility] DIRECT EXAM PRESUMPTIVE NEGATIVE FOR H. PYLORI 03/18/2021 3:28 PM CDT [facility] Tissue specimen (specimen) GASTRIC BIOPSY SPECIMEN / Unknown 03/18/2021 10:16 AM CDT Gloria Navarro MD MICROBIOLOGY - GENERAL ORDERA BLES Final Result Performing Organization Address City/State/[facility] Co de Phone Number [facility] [address] [place] [address], * Pathology (03/18/2021 12:00 AM CDT) PATHOLOGY [facility] ? Department of Laboratory Medicine ?[address] ?[place] [address] ? , extension [phone] ? Pathology Report ? Surgical Pathology Report Name: OBIE SIMS ?Specimen #: [id number] Age: 12 1955 (Age: 65) ? Location: [facility] Sex: M ?Procedure Date: 03/18/2021 Hospital #: [id number] ?Date Received: 03/19/2021 Date Reported: 03/21/2021 Provider: [...] Electronically Signed Out ? Rafi Banegas M.D. [facility] Tissue specimen (specimen) STOMACH STRUCTURE / Unknown 03/18/2021 10:17 AM CDT Tissue specimen (specimen) STOMACH STRUCTURE / Unknown 03/18/2021 10:18 AM CDT Gloria Navarro MD PATHOLOGY/CYTOLOGY ORDERABLES Final Result [facility] [address] [place] [address], [id number] documented in this encounter Visit Diagnoses Not [...] RN) documented in this encounter Care Teams Veterinary Inspector Relationship Specialty Start Date End Date Megan Infante MD [address] [facility] [place] [address] PCP - General FAMILY PRACTICE 04/06/16 Piyush Pandey MD [place] Dry Charge Process Attendant CARDIOVASCULAR DISEASE 04/06/16 12/28/23 Sharmila Davis APRN, HEAD SUGAR REPROCESS OPERATOR-C [address] [facility] [address] [place] [phone] NURSE PRACTITIONER 01/04/17 04/03/24 Linda Block MD [address] [address] [place] Dry Charge Process Attendant CLINICAL CARDIAC ELECTROPHYSIOLOGY 02/08/17 04/12/23 Jeff Grace MD [address] [address] Consulting Physician INTERNAL MEDICINE 02/20/19 3 Zaki Ortiz MD [address] [phone] Consulting Physician PULMONARY DISEASE 07/12/19 documented as of this encounter
--- OUTSIDE RECORDS SUMMARY | 2024-09-03 20:42 | XMS_ITS | Encounter Summary ---
Author Organization [facility] Address [address] [place] [address]. [place] [address] [place] [address] Care Team Providers Care Public Service Director Name Role Phone Piyush Pandey MD Unavailable Unavailabl e Megan Infante MD Primary Care Provider [phone] Sharmila Davis APRN VIOLIN REPAIRER-C Unavailable [phone] Linda Block MD Unavailable [phone] Jeff Grace MD Unavailable Zaki Ortiz MD Unavailable [phone] Encounter Details Date Type Department Care Team [...] Contact Info) Description 09/25/2024 2:00 PM SECURITY FLEX UTILITY OFFICER Appointment [facility] [address] [place] [address] Zayra Powell, DYEING MACHINE TENDER [address] [place], [place] [address] 10/16/2024 3:30 PM SECURITY FLEX UTILITY OFFICER Office Visit [facility] [address] [place] [address] Brit Gonzáles MD [address] [place], [place] [phone] documented as of this encounter Visit Diagnoses Not on filedocumented in this encounter Care Teams Public Service Director Relationship Specialty Start Date End Date Megan Infante MD [address] [place] [address] PCP - General FAMILY PRACTICE 04/06/16 Piyush Pandey MD [place] Corporate Bond Trader CARDIOVASCULAR DISEASE 04/06/16 12/28/23 Sharmila Davis APRN, VIOLIN REPAIRER-C [address] [facility] 47 [place] [phone] NURSE PRACTITIONER 01/04/17 04/03/24 Linda Block MD 619 [facility] [address] [place] [address] [place] [employer] Trader CLINICAL CARDIAC ELECTROPHYSIOLOGY 02/08/17 04/12/23 Jeff Grace MD 6[address] [facility] [address] [place] [address] Consulting Physician INTERNAL MEDICINE 02/20/19 3 Zaki Ortiz MD [address] [place] [phone] Consulting Physician PULMONARY DISEASE 07/12/19 documented as of this encounter
--- OUTSIDE RECORDS SUMMARY | 2024-09-03 20:42 | XMS_ITS | Encounter Summary ---
Author Organization [facility] Address [address] [place] [address]. [place] [address] [place] [address] Care Team Providers Care Commodity Manager Name Role Phone Piyush Pandey MD Unavailable Unavailabl e Megan Infante MD Primary Care Provider [phone] Sharmila Davis APRN MACHINE SETTER SHEET METAL-C Unavailable Linda Block MD Unavailable [phone] Jeff Grace MD Unavailable Zaki Ortiz MD Unavailable [phone] Encounter Details Date Type Department Care Team (Late st Contact Info) Description 02/18/2021 Orders Only [facility] [address] [place] [address] Jacquie Martel, PA-C [address] [place] [address] Social History Tobacco Use Types [...] st Contact Info) Description 09/25/2024 2:00 PM POULTRYMAN Appointment [facility] [address] [facility] [address] Zayra Poewll, RENEWABLE ENERGY CONSULTANT [address] [facility] [place] [address] 10/16/2024 3:30 PM POULTRYMAN Office Visit [facility] [address] [facility] [place] [address] Brit Gonzáles MD 619 [place] [address] documented as of this encounter Results * (ABNORMAL) BASIC METABOLIC PANEL (02/18/2021 12:06 PM CDT) SODIUM S/P/B 140 136 - 145 MMOL/L 02/18/2021 12:20 PM CDT [facility] POTASSIUM S/P/B 4.7 3.5 - 5.1 MMOL/L 02/18/2021 12:20 PM CDT [facility] CHLORIDE S/P/B 101 98 - 107 MMOL/L 02/18/2021 12:20 PM CDT [facility] CO2 30.8 21.0 - 32.0 MMOL/L 02/18/2021 12:20 PM CDT [facility] GLUCOSE 177(H) 70 - 99 MG/DL 02/18/2021 12:20 PM CDT [facility] Comment: FASTING GLUCOSE 100 TO 125 MG/DL IS CONSISTENT WITH IMPAIRED FASTING GLUCOSE. FASTING GLUCOSE >125 MG/DL IS CONSISTENT WITH DIABETES. RANDOM GLUCOSE >200 MG/DL WITH HYPERGLYCEMIC SYMPTOMS IS CONSISTENT WITH DIABETES. PER ADA GUIDELINES BUN 20 6 - 24 MG/DL 02/18/2021 12:20 PM CDT [facility] CREATININE S/P/B 1.37(H) 0.70 - 1.30 MG/DL 02/18/2021 12:20 PM CDT [facility] CALCIUM S/P/B 9.4 8.4 - 10.5 MG/DL 02/18/2021 12:20 PM CDT [facility] ANION GAP 8.2 5.0 - 15.0 MMOL/L 02/18/2021 12:20 PM CDT [facility] OSMOLALITY (CALC) 297 MOSM/KG 021 12:20 PM CDT [facility] Comment:REFERENCE RANGE NOT ESTABLISHED EGFR NON-AFR. AMER. 53(L) >89 ML/MIN/1. 73 M2 02/18/2021 12:20 PM CDT [facility] EGFR AFR. AMER. 62(L) >89 ML/MIN/1. 73 M2 02/18/2021 12:20 PM CDT [facility] GFR NOTES GFR REFERENCE S: 02/18/2021 12:20 PM CDT [facility] Comment: THE ESTIMATED GFR IS [...] Jacquie Martel PA-C LABORATORY Final Resul t [facility] [address] [place] [address], * (ABNORMAL) PROTIME/INR, VENOUS (02/18/2021 12:06 PM CDT) PROTIME 30.6(H) 9.4 - 12.5 SEC 02/18/2021 12:18 PM CDT [facility] INR 2.7(H) 0.9 - 1.1 02/18/2021 12:18 PM CDT [facility] 02/18/2021 12:0 6 PM CDT us Jacquie Martel PA-C LABORATORY Final Resul t [facility] [address] [place] [address], documented in this encounter Visit Diagnoses Diagnosis Atrial fibrillation status post cardioversion ([facility] HHS/HCC)- Primary Cardiac complications Type 2 diabetes mellitus treated without insulin ([facility]) documented in this encounter Care Teams Commodity Manager Relationship Specialty Start Date End Date Megan Infante MD [address] [facility] [place] [phone] PCP - General FAMILY PRACTICE 04/06/16 Piyush Pandey MD [place] Service [employer] Layer CARDIOVASCULAR DISEASE 04/06/16 12/28/23 Sharmila Davis, TRACK BROOM OPERATOR, MACHINE SETTER SHEET METAL-C [address] [facility] [address] [place] [address] NURSE PRACTITIONER 01/04/17 04/03/24 Linda Block MD [address] [place] [address] [place] Service [employer] Layer CLINICAL CARDIAC ELECTROPHYSIOLOGY 02/08/17 04/12/23 Jeff Grace MD [address] [place] [address] Consulting Physician INTERNAL MEDICINE 02/20/19 3 Zaki Ortiz MD [address] [place] [address] Consulting Physician PULMONARY DISEASE 07/12/19 documented as of this encounter
--- OUTSIDE RECORDS SUMMARY | 2024-09-03 20:43 | XMS_ITS | Encounter Summary ---
Author Organization [facility] Address [facility] [place] [address] [place] [address] Care Team Providers Care Nursing Director Name Role Phone Piyush Pandey MD Unavailable Unavailabl e Megan Infante MD Primary Care Provider [phone] Sharmila Davis APRN, BRASS INSTRUMENT REPAIR TECHNICIAN-C Unavailable [phone] Linda Block MD Unavailable [phone] Jeff Grace MD Unavailable Zaki Ortiz MD Unavailable [phone] Encounter Details Date Type Department Care Team [...] Contact Info) Description 09/25/2024 2:00 PM SENIOR JAVA PROGRAMMER Appointment [facility] [address] [place], [facility]56 Zayra Powell, [facility] [address] [facility] [address] [place], [place] [phone] 10/16/2024 3:30 PM SENIOR JAVA PROGRAMMER [facility] [address] [place] [phone] Brit Gonzáles MD [address] [place], [place] [phone] documented as of this encounter Visit Diagnoses Not on filedocumented in this encounter Care Teams Nursing Director Relationship Specialty Start Date End Date Megan Infante MD [address] [facility] [address] [place] [phone] PCP - General FAMILY PRACTICE 04/06/16 Piyush Pandey MD [place] [employer] Instructor CARDIOVASCULAR DISEASE 04/06/16 12/28/23 Sharmila Davis, SPRAY MIXER, BRASS INSTRUMENT REPAIR TECHNICIAN-C [address] [facility] [address] [place] [phone] NURSE PRACTITIONER 01/04/17 04/03/24 Linda Block MD 619 [facility] [address] [phone] [place] [employer] Instructor CLINICAL CARDIAC ELECTROPHYSIOLOGY 02/08/17 04/12/23 Jeff Grace MD 619 [facility] [address] [phone] Consulting Physician INTERNAL MEDICINE 02/20/19 6 3 Zaki Ortiz MD 619 [facility] [address] [phone] Consulting Physician PULMONARY DISEASE 07/12/19 documented as of this encounter
--- OUTSIDE RECORDS SUMMARY | 2024-09-03 20:43 | XMS_ITS | Encounter Summary ---
Author Organization [facility] Address Critical access hospital6 [place] [address] [place] [address] Care Team Providers Care Teacher Vocal Name Role Phone Piyush Pandey MD Unavailable Unavailabl e Megan Infante MD Primary Care Provider [phone] Sharmila Davis APRN, NP-C Unavailable [phone] Linda Block MD Unavailable [phone] Jeff Grace MD Unavailable Reason for Referral * Consultation (Routine) - Closed Specialty Diagnoses / Procedures Referred By Yung t Referred To Contact [facility] Diagnoses Shortness of breath Sharmila Davis APRN, NP-C [address] [facility] [address] [place] [address] Phone: tel: fax: Referral ID Status Reason Start Date Expiration Date V isits Requested Visits Authorized [id number] Closed Specialty Services 06/12/2019 07/13/2020 1 1 Reason for Visit * Reason Onset Date Comments Results 06/07/2019 Stress test Encounter Details Date Type Department Care Team ([facility] st Contact Info) Description 06/07/2019 Telephone [facility] [address] [place] [address] Sharmila Davis APRN BAREBACK RIDERMartyC [address] [facility] [address] [place] [address] Results (Stress test) Social History Tobacco Use [...] placed for patient to be seen in [place]. Patient to be seenfor an appt on 07/18/19 at 9:00am, arrival time at 8:30am. Cover Seamer informed me to let the patientknow that new patient appts can take anywhere from 2-3 hours depending on tests the provider would like to order. They states they will mail the patient a packet of information to them and that they can call their office at [phone]. I voiced understanding. Patient phoned, informed him of pulmonary referral. He states that he actually already saw a serials librarian in [place] last week, Dr. Saleh. He states they increased his lasix to 80mg in the AM aft75wm in the PM, started on a nebulizer [...] CDT ----- Message from Sharmila Davis APRN, BAREBACK RIDER-C sent at 06/06/2019 9:56 AM CDT ----- LVEF 53%. Appears to be only fixed defects. Have Dr. Pandey review, and if he agrees set up pulmonology referral for Mr. Lay. documented in this encounter Plan of Treatment Upcoming Encounters Date Type Department Care Team (Late st Contact Info) Description 09/25/2024 2:00 PM MANAGER DOCUMENTATION Appointment [facility] [address] [place] [address] Zayra Powell, LIMNOLOGY TEACHER [address] [place] [address] 10/16/2024 3:30 PM MANAGER DOCUMENTATION Office Visit [facility] [address] [place] [phone] Brit Gonzáles MD [address] [place] [address] Scheduled Referrals Name Type Priority Associated Diagnoses Orde r Schedule Ambulatory referral to Pulmonology/Sleep and Respiratory Care Referral Routine Shortness of breath Ordered: 06/12/2019 documented as of this encounter Visit Diagnoses Diagnosis Shortness of breath- Primary documented in this encounter Care Teams Teacher Vocal Relationship Specialty Start Date End Date Megan Infante MD [address] [place] [phone] PCP - General FAMILY PRACTICE 04/06/16 Piyush Pandey MD [place] [employer] Hostess CARDIOVASCULAR DISEASE 04/06/16 12/28/23 Sharmila Davis APRN, BAREBACK RIDER-C [address] [facility] [address] [place] [phone] NURSE PRACTITIONER 01/04/17 04/03/24 Linda Block MD [address] [facility] [address] [place] [phone] [employer] Hostess CLINICAL CARDIAC ELECTROPHYSIOLOGY 02/08/17 04/12/23 Jeff Grace MD [address] [facility] [address] [place] [address] Consulting Physician INTERNAL MEDICINE 02/20/19 3 documented as of this encounter
--- OUTSIDE RECORDS SUMMARY | 2024-09-03 20:43 | XMS_ITS | Encounter Summary ---
Author Organization [facility] Address [address] [place] [address]. [place] [address] [place] [address] Care Team Providers Care Postal Mail Carrier Name Role Phone Piyush Pandey MD Unavailable Unavailabl e Megan Infante MD Primary Care Provider [phone] Sharmila Davis APRN, NP-C Unavailable [phone] Linda Block MD Unavailable [phone] Jeff Grace MD Unavailable Zaki Ortiz MD Unavailable [phone] Reason for Visit * Reason Onset Date Comments Schedule Procedure 06/28/2020 Cath Encounter Details Date Type Department Care Team (Late st Contact Info) Description 06/28/2020 Telephone [facility] [address] [place] [phone] Piyush aPndey MD Schedule Procedure (Cath) Social History Tobacco [...] COVID-19? Unable to assess 06/24/2020 11:52 AM CHAINSTITCH SEAT JOINER documented as of this encounter Progress Notes * Megan Lay RN - 06/28/2020 3:36 PM CST R/LHC scheduled for 07/05 at 9:00am. Pt aware of date/time and instructions. Letter sent. NSTITCH SEAT JOINER documented in this encounter Plan of Treatment Upcoming Encounters Date Type Department Care Team (Late st Contact Info) Description 09/25/2024 2:00 PM CHAINSTITCH SEAT JOINER Appointment [facility] [address] [facility] [place] [address] Zayra Powell, IMAGING TECHNOLOGIST [address] [facility] [place] [address] 10/16/2024 3:30 PM CHAINSTITCH SEAT JOINER Office Visit [facility] [place] [address] Brit Gonzáles MD 619 [place] [address] documented as of this encounter Results * (ABNORMAL) PROTIME/INR, VENOUS (07/03/2020 8:54 AM CHAINSTITCH SEAT JOINER) PROTIME 19.1(H) 9.4 - 12.5 SEC 07/03/2020 9:27 AM CHAINSTITCH SEAT JOINER [facility] INR 1.7(H) 0.9 - 1.1 07/03/2020 9:27 AM CHAINSTITCH SEAT JOINER [facility] 07/03/2020 8:54 AM CHAINSTITCH SEAT JOINER us Piyush Pandey MD LABORATORY Final Resul t [facility] [address] [place] [address], * MAGNESIUM (07/03/2020 8:54 AM CHAINSTITCH SEAT JOINER) MAGNESIUM 2.2 1.8 - 2.4 MG/DL 07/03/2020 9:13 AM [facility] 07/03/2020 8:54 AM CHAINSTITCH SEAT JOINER us Piyush Pandey MD LABORATORY Final Resul t [facility] [address] [place] [address], * (ABNORMAL) CBC W/DIFF AUTOMATED (07/03/2020 8:54 AM CHAINSTITCH SEAT JOINER) WBC 9.9 4.5 - 10.8 x10'3/uL 07/03/2020 9:00 AM [facility] RBC 4.37(L) 4.50 - 6.10 x10'6/uL 07/03/2020 9:00 AM [facility] HGB 12.2(L) 13.0 - 18.0 G/DL 07/03/2020 9:00 AM [facility] HCT 38.7 37.0 - 52.0 % 07/03/2020 9:00 AM [facility] MCV 88.6 78.0 - 100.0 FL 07/03/2020 9:00 AM [facility] MCH 27.9 27.0 - 31.0 PG 07/03/2020 9:00 AM [facility] MCHC 31.5(L) 33.0 - 36.0 G/DL 07/03/2020 9:00 AM [facility] RDW 14.4 11.5 - 14.5 % 07/03/2020 9:00 AM [facility] PLT 243 150 - 350 x10'3/uL 07/03/2020 9:00 AM [facility] MPV 9.7 7.4 - 10.4 FL 07/03/2020 9:00 AM [facility] DIFFERENTIAL COMMENT NORMAL REFERENCE RANGE NOT ESTABLISHED FOR THE PROPORTIONAL LEUKOCYTE DIFFERENTIAL. 07/03/2020 9:00 AM [facility] SEG NEUTROPHILS 59.9 % 0 9:00 AM CHAINSTITCH SEAT JOINER [facility] LYMPHOCYTES 22.6 % 07/03/2020 9:00 AM [facility] MONOCYTES 11.3 % 07/03/2020 9:00 AM [facility] EOSINOPHILS 5.3 % 07/03/2020 9:00 AM [facility] BASOPHILS 0.5 % 07/03/2020 9:00 AM [facility] IMMATURE GRANS % 0.4 % 07/03/20 20 9:00 AM CHAINSTITCH SEAT JOINER [facility] NRBC 0.0 % 07/03/2020 9:00 AM [facility] ABS. NEUTROPHILS 5.93 1.60 - 8.30 x10'3/uL 07/03/2020 9:00 AM [facility] ABS. LYMPHOCYTES 2.24 0.80 - 4.70 x10'3/uL 07/03/2020 9:00 AM [facility] ABS. MONOCYTES 1.12 0.00 - 1.50 x10'3/uL 07/03/2020 9:00 AM [facility] ABS. EOSINOPHILS 0.53(H) 0.00 - 0.40 x10'3/uL 07/03/2020 9:00 AM [facility] ABS. BASOPHILS 0.05 0.00 - 0.20 x10'3/uL 07/03/2020 9:00 AM [facility] ABS. IMMATURE GRANULOCYTES 0.04(H) 0.00 - 0.03 x10'3/uL 07/03/2020 9:00 AM [facility] ABS. NUCLEATED RBC'S 0.00 0.00 x10'3/uL 07/03/2020 9:00 AM [facility] 07/03/2020 8:54 AM CHAINSTITCH SEAT JOINER us Piyush Pandey MD LABORATORY Final Resul t [facility] [address] [place] [address], * (ABNORMAL) BASIC METABOLIC PANEL (07/03/2020 8:54 AM [facility]) SODIUM S/P/B 133(L) 136 - 145 MMOL/L 07/03/2020 9:13 AM [facility] POTASSIUM S/P/B 4.4 3.5 - 5.1 MMOL/L 07/03/2020 9:13 AM [facility] CHLORIDE S/P/B 95(L) 98 - 107 MMOL/L 07/03/2020 9:13 AM [facility] CO2 32.4(H) 21.0 - 32.0 MMOL/L 07/03/2020 9:13 AM [facility] GLUCOSE 161(H) 70 - 99 MG/DL 07/03/2020 9:13 AM [facility] Comment: FASTING GLUCOSE 100 TO 125 MG/DL IS CONSISTENT WITH IMPAIRED FASTING GLUCOSE. FASTING GLUCOSE >125 MG/DL IS CONSISTENT WITH DIABETES. RANDOM GLUCOSE >200 MG/DL WITH HYPERGLYCEMIC SYMPTOMS IS CONSISTENT WITH DIABETES. PER ADA GUIDELINES BUN 30(H) 6 - 24 MG/DL 07/03/2020 9:13 AM [facility] CREATININE S/P/B 1.92(H) 0.70 - 1.30 MG/DL 07/03/2020 9:13 AM [facility] CALCIUM S/P/B 10.1 8.4 - 10.5 MG/DL 07/03/2020 9:13 AM [facility] ANION GAP 5.6 5.0 - 15.0 MMOL/L 07/03/2020 9:13 AM [facility] OSMOLALITY (CALC) 286 MOSM/KG 020 9:13 AM [facility] Comment:REFERENCE RANGE NOT ESTABLISHED EGFR NON-AFR. AMER. 36(L) >89 ML/MIN/1. 73 M2 07/03/2020 9:13 AM [facility] EGFR AFR. AMER. 41(L) >89 ML/MIN/1. 73 M2 07/03/2020 9:13 AM [facility] GFR NOTES GFR REFERENCE S: 07/03/2020 9:13 AM [facility] Comment: THE ESTIMATED GFR [...] FAILURE: <15 ml/min/1.73 m2 07/03/2020 8:54 AM CHAINSTITCH SEAT JOINER us Piyush Pandey MD LABORATORY Final Resul t [facility] [address] [place] [address], documented in this encounter Visit Diagnoses Diagnosis Coronary artery disease involving [place] coronary artery of [place] heart without angina pectoris- Primary S/P aortic valve replacement with bioprosthetic valve Heart valve replaced by other means Aortic stenosis Aortic valve disorders Chronic atrial fibrillation ([facility]) Atrial fibrillation documented in this encounter Care Teams Postal Mail Carrier Relationship Specialty Start Date End Date Megan Infante MD [address] [place] [phone] PCP - General FAMILY PRACTICE 04/06/16 Piyush Pandey MD [place] Receivable Manager CARDIOVASCULAR DISEASE 04/06/16 12/28/23 Sharmila Davis APRN, OFFICE ANALYST-C [address] [facility] [address] [place] [phone] NURSE PRACTITIONER 01/04/17 04/03/24 Linda Block MD [address] [facility] [address] [place] [address] [place] Receivable Manager CLINICAL CARDIAC ELECTROPHYSIOLOGY 02/08/17 04/12/23 Jeff Grace MD [address] [place] [phone] Consulting Physician INTERNAL MEDICINE 02/20/19 3 Zaki Ortiz MD [address] [place] [phone] Consulting Physician PULMONARY DISEASE 07/12/19 documented as of this encounter
--- OUTSIDE RECORDS SUMMARY | 2024-09-03 20:43 | XMS_ITS | Encounter Summary ---
Author Organization [facility] Address [facility] [address] [place] [address] Care Team Providers Care Clinical Radiologist Name Role Phone Piyush Pandey MD Unavailable Unavailabl e Megan Infante MD Primary Care Provider [phone] Sharmila Davis APRN, NUCLEAR REACTOR ENGINEER-C Unavailable [phone] Linda Block MD Unavailable [phone] Jeff Grace MD Unavailable Encounter Details Date Type Department Care Team (Late st Contact Info) Description 05/25/2019 Abstract [facility] [address] [place] [address] Sharmila Davis, DANNY, NUCLEAR REACTOR ENGINEER-C [address] [facility] [address] [place] [address] Social History Tobacco Use Types [...] st Contact Info) Description 09/25/2024 2:00 PM PALEOLOGY PROFESSOR Appointment [facility] [address] [place] [address] Zayra Powell, ADVISORY APPLICATION DEVELOPER [address] [place] [address] 10/16/2024 3:30 PM PALEOLOGY PROFESSOR Office Visit [facility] [address] [place] [phone] Brit Gonzáles MD [address] [place] [address] documented as of this encounter Procedures Procedure Name Priority Date/Time Associated Diagnosis Comments PROTHROMBIN TIME, VENOUS Routine 05/22/2019 BASIC METABOLIC PANEL Routine 05/22/2019 shelter use of drug documented in this encounter [...] AMER. 55 05/22/2019 us Sharmila Davis APRN, NUCLEAR REACTOR ENGINEER-C LABORATORY Final Result documented in this encounter Visit Diagnoses Diagnosis terminal operations manager use of drug Encounter for long-term (current) use of other medications documented in this encounter Care Teams Clinical Radiologist Relationship Specialty Start Date End Date Megan Infante MD [address] [facility] [place] [phone] PCP - General FAMILY PRACTICE 04/06/16 Piyush Pandey MD [place] Guitar Teacher CARDIOVASCULAR DISEASE 04/06/16 12/28/23 Sharmila Davis, PSYCHOLOGY DEPARTMENT CHAIR, NUCLEAR REACTOR ENGINEER-C [address] [facility] [address] [place] [phone] NURSE PRACTITIONER 01/04/17 04/03/24 Linda Block MD [address] [facility] [address] [place] [phone] [place] Guitar Teacher CLINICAL CARDIAC ELECTROPHYSIOLOGY 02/08/17 04/12/23 Jeff Grace MD [address] [facility] [address] [place] [phone] Consulting Physician INTERNAL MEDICINE 02/20/19 6 3 documented as of this encounter
--- OUTSIDE RECORDS SUMMARY | 2024-09-03 20:43 | XMS_ITS | Encounter Summary ---
Author Organization [facility] Address [facility] [place] [address] [place] [address] Care Team Providers Care Vp Hr Diversity Name Role Phone Piyush Pandey MD Unavailable Unavailabl e Megan Infante MD Primary Care Provider [phone] Sharmila Davis APRN, NP-C Unavailable [phone] Linda Block MD Unavailable [phone] Jeff Grace MD Unavailable Reason for Referral * Imaging (Routine) - Closed Specialty Diagnoses / Procedures Referred By Contac t Referred To Contact RADIOLOGY Diagnoses SOB (shortness of breath) Atherosclerosis of [place] coronary artery of [place] heart, angina presence unspecified Procedures NM PHARM NUC STRESS TEST 1DAY Sharmila Davis APRN, NP-C [address] [facility] [address] [place] [address] Phone: tel: fax: Referral ID Status Reason Start Date Expiration Date Visits Re quested Visits Authorized [id number] Closed 05/26/2019 06/25/2020 1 1 Reason for Visit * Reason Onset Date Comments Follow Up Call 05/25/2019 Schedule Test 05/25/2019 Rega Nuc. Encounter Details Date Type Department Care Team ([facility] Contact Info) Description 05/25/2019 Telephone [facility] [address] [place] [address] Sharmila Davis, PRODUCTION RECORDER, RIG HAND-C [address] [facility] [address] [place] [address] Follow Up Call; Schedule Test [...] stress test is scheduled for 06/05/2019 at [facility] . Patient is to arrive by [...] Contact Info) Description 09/25/2024 2:00 PM INFORMATION ASSURANCE Appointment [facility] [address] [place] [address] Zayra Powell, [facility] [address] [place] [address] 10/16/2024 3:30 PM INFORMATION ASSURANCE Office Visit [facility] [address] [place] [address] Brit Gonzáles MD [address] [place], [place] [address] documented as of this encounter Results * NM PHARM NUC STRESS TEST 1DAY (06/05/2019) Anatomical Region Laterality Modality Cardiac Nuclear Medicine us STERLING Guillen APRN NUC MED Final Result documented in this encounter Visit Diagnoses Diagnosis SOB (shortness of breath)- Primary Shortness of breath Atherosclerosis of [place] coronary artery of [place] heart, angina presence unspecified documented in this encounter Care Teams Vp Hr Diversity Relationship Specialty Start Date End Date Megan Infante MD [address] [place] [address] PCP - General FAMILY PRACTICE 04/06/16 Piyush Pandey MD [place] Aviation Safety Technician CARDIOVASCULAR DISEASE 04/06/16 12/28/23 Sharmila Davis, DANNY, RIG HAND-C [address] [facility] [address] [place] [address] NURSE PRACTITIONER 01/04/17 04/03/24 Linda Block MD [address] [facility] [address] [place] [address] [place] Aviation Safety Technician CLINICAL CARDIAC ELECTROPHYSIOLOGY 02/08/17 04/12/23 Jeff Grace MD [address] [facility] [address] [place] [address] Consulting Physician INTERNAL MEDICINE 02/20/19 3 documented as of this encounter
--- OUTSIDE RECORDS SUMMARY | 2024-09-03 20:43 | XMS_ITS | Encounter Summary ---
Author Organization [facility] Address [address] [place] [address]. [place] [address] [place] [address] Care Team Providers Care Last Picker Name Role Phone Piyush Pandey MD Unavailable Unavailabl e Megan Infante MD Primary Care Provider [phone] Sharmila Davis APRN, NP-C Unavailable [phone] Linda Block MD Unavailable [phone] Jeff Grace MD Unavailable Zaki Ortiz MD Unavailable [phone] Reason for Visit * Reason Comments Follow Up Coronary Artery Disease Atrial Fibrillation Encounter Details Date Type Department Care Team (Latest Contact Info) Description 06/26/2020 11:00 AM LIFE SKILLS INSTRUCTOR Office Visit [facility] [place] [address] Piyush Pandey MD Follow Up; Coronary Artery [...] COVID-19? No / Unsure 07/03/2020 8:36 AM LIFE SKILLS INSTRUCTOR documented as of this encounter Last Filed Vital Signs Vital Sign Reading Time Taken Comments Blood Pressure 148/75 06/26/2020 3:14 PM LIFE SKILLS INSTRUCTOR Pulse 66 06/26/2020 3:13 PM LIFE SKILLS INSTRUCTOR Temperature - - Respiratory Rate 22 06/26/2020 3:13 PM LIFE SKILLS INSTRUCTOR Oxygen Saturation 98% 06/26/2020 3:13 PM LIFE SKILLS INSTRUCTOR Inhaled Oxygen Concentration - - Weight 98.6 kg (217 lb 6.4 oz) 06/26/2020 3:13 P M LIFE SKILLS INSTRUCTOR Height 170.2 cm (5' 7 ) 06/26/2020 3:13 PM LIFE SKILLS INSTRUCTOR Body Mass Index 34.05 06/26/2020 3:13 PM LIFE SKILLS INSTRUCTOR documented in this encounter Patient Instructions * Patient Instructions* Megan Lay RN - 06/26/2020 11:00 AM LIFE SKILLS INSTRUCTOR 1. Discussed Eliquis 2. R/L heart cath next week ( or Wednesday) 3. RTC 1 year SKILLS INSTRUCTOR documented in this encounter Progress Notes * [...] Nare route daily., Disp: , Rfl: ??? Aghslzinngf-Nlmwzujcl-Kocasp 100-62.5-25 MCG/INH AEROSOL POWDER, BREATH ACTIVATED, Inhale [...] Megan Infante MD PCP: MEGAN INFANTE MD SKILLS INSTRUCTOR * Piyush Pandey MD - 06/26/2020 12:00 [...] should he have any questions or problems. SKILLS INSTRUCTOR * Piyush Pandey MD - 06/26/2020 12:00 [...] cardiac catheterization. Unfortunately, he presented to the [facility] Emergency Room on 07/03/20. He had [...] he presented to the emergency room in [place]. His neurologic symptomatology seemed to resolve after [...] he have any further questions or problems. SKILLS INSTRUCTOR documented in this encounter Plan of Treatment Upcoming Encounters Date Type Department Care Team (Late st Contact Info) Description 09/25/2024 2:00 PM LIFE SKILLS INSTRUCTOR Appointment [facility] [address] [place] [address] Andre Zayra K, TSA SCREENER [address] [place], [place] [address] 10/16/2024 3:30 PM LIFE SKILLS INSTRUCTOR Office Visit [facility] [address] 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 S/P aortic valve replacement with bioprosthetic valve Heart valve replaced by other means Chronic atrial fibrillation ([facility]) Atrial fibrillation Essential hypertension Unspecified essential hypertension Mixed hyperlipidemia Chronic anticoagulation Encounter for long-term (current) use of anticoagulants documented in this encounter Additional Health Concerns Infection Onset Date Last Indicated Resolved Time COVID-19 Rule Out 07/03/2020 07/03/2020 07/04/2020 11:25 PM LIFE SKILLS INSTRUCTOR documented as of this encounter Care Teams Last Picker Relationship Specialty Start Date End Date Megan Infante MD [address] [facility] [place] [address] PCP - General FAMILY PRACTICE 04/06/16 Piyush Pandey MD [place] Safety Risk Lead CARDIOVASCULAR DISEASE 04/06/16 12/28/23 Sharmila Davis APRN, MEAT DEPARTMENT MANAGER-C [address] [place] [address] [address] [place] [address] NURSE PRACTITIONER 01/04/17 04/03/24 Linda Block MD [address] [place] [address] [place] Safety Risk Lead CLINICAL CARDIAC ELECTROPHYSIOLOGY 02/08/17 04/12/23 Jeff Grace MD [address] [facility] [address] [place] [address] Consulting Physician INTERNAL MEDICINE 02/20/19 3 Zaki Ortiz MD [address] [place] [address] Consulting Physician PULMONARY DISEASE 07/12/19 documented as of this encounter
--- OUTSIDE RECORDS SUMMARY | 2024-09-03 20:43 | XMS_ITS | Encounter Summary ---
Author Organization [facility] Address [address] [place] [address]. [place] [address] [place] [address] Care Team Providers Care Research And Development Scientist Name Role Phone Piyush Pandey MD Unavailable Unavailabl e Megan Infante MD Primary Care Provider [phone] Sharmila Davis APRN, NP-C Unavailable Linda Block MD Unavailable [phone] Jeff Grace MD Unavailable Zaki Ortiz MD Unavailable [phone] Reason for Visit * Reason Onset Date Comments Appointment Request 04/11/2020 Encounter Details Date Type Department Care Team (Late st Contact Info) Description 04/11/2020 [facility]phone [facility] [address] [place] [address] Piyush Pandey MD Appointment Request [...] st Contact Info) Description 09/25/2024 2:00 PM ICE SKATING INSTRUCTOR Appointment [facility] [address] [facility] [place] [address] Zayra Powell, LEASING ASSISTANT [address] [facility] [place] [address] 10/16/2024 3:30 PM ICE SKATING INSTRUCTOR Office Visit [facility] [address] [facility] [place] [address] Brit Gonzáles MD [address] [place] [address] documented as of this encounter Visit Diagnoses Not on filedocumented in this encounter Care Teams Research And Development Scientist Relationship Specialty Start Date End Date Megan Infante MD [address] [place] [address] PCP - General FAMILY PRACTICE 04/06/16 Piyush Pandey MD [place] Radio Interference Trouble Shooter CARDIOVASCULAR DISEASE 04/06/16 12/28/23 Sharmila Davis, FRATERNITY ADVISER, FIELD EXAMINER-C [address] [facility] [address] [place] [address] NURSE PRACTITIONER 01/04/17 04/03/24 Linda Block MD [address] [facility] [address] [place] [address] [place] Radio Interference Trouble Shooter CLINICAL CARDIAC ELECTROPHYSIOLOGY 02/08/17 04/12/23 Jeff Grace MD [address] [facility] [address] [place] [address] Consulting Physician INTERNAL MEDICINE 02/20/19 3 Zaki Ortiz MD [address] [place] [address] Consulting Physician PULMONARY DISEASE 07/12/19 documented as of this encounter
--- OUTSIDE RECORDS SUMMARY | 2024-09-03 20:43 | XMS_ITS | Encounter Summary ---
Author Organization [facility] Address [address] [place] [address]. [place] [address] [place] [address] Care Team Providers Care Litigation Legal Secretary Name Role Phone Piysuh Pandey MD Unavailable Unavailabl e Megan Infante MD Primary Care Provider [phone] Sharmila Davis APRN LONG TERM CARE PHARMACIST-C Unavailable Linda Block MD Unavailable [phone] Jeff Grace MD Unavailable Zaki Ortiz MD Unavailable [phone] Encounter Details Date Type Department Care Team (Late st Contact Info) Description 09/24/2020 Prep for Procedure [place] [facility] [address] [place] [address] Piyush Pandey MD Social History Tobacco Use [...] COVID-19? No / Unsure 09/10/2020 7:25 AM LABORER TAN HOUSE documented as of this encounter Plan of Treatment Upcoming Encounters Date Type Department Care Team (Late st Contact Info) Description 09/25/2024 2:00 PM LABORER TAN HOUSE Appointment [facility] [address] [place] [address] Zayra Powell, GLASS DEPOSITION TENDER [address] [place], [place] [address] 10/16/2024 3:30 PM LABORER TAN HOUSE Office Visit [place] [facility] [address] [place] [address] Brit Gonzáles MD [address] [place], [place] [address] documented as of this encounter Visit Diagnoses Not on filedocumented in this encounter Care Teams Litigation Legal Secretary Relationship Specialty Start Date End Date Megan Infante MD [address] [place] [address] PCP - General FAMILY PRACTICE 04/06/16 Piyush Pandey MD [place] Staff Home Therapy Rn CARDIOVASCULAR DISEASE 04/06/16 12/28/23 Sharmila Davis, INFORMATICIST, LONG TERM CARE PHARMACIST-C [address] [facility] 47 [place] [address] NURSE PRACTITIONER 01/04/17 04/03/24 Linda Block MD [address] [facility] [address] [place] [address] Ider Staff Home Therapy Rn CLINICAL CARDIAC ELECTROPHYSIOLOGY 02/08/17 04/12/23 Jeff Grace MD 619 [facility] 47 [place] [address] Consulting Physician INTERNAL MEDICINE 02/20/19 3 Zaki Ortiz MD [address] [facility] 47 [place] [address] Consulting Physician PULMONARY DISEASE 07/12/19 documented as of this encounter
--- OUTSIDE RECORDS SUMMARY | 2024-09-03 20:43 | XMS_ITS | Encounter Summary ---
Author Organization [facility] Address [facility] [place] [address] [place] [address] Care Team Providers Care Sail Cutter Name Role Phone Piyush Pandey MD Unavailable Unavailabl e Megan Infante MD Primary Care Provider [phone] Sharmila Davis APRN, NP-C Unavailable Linda Block MD Unavailable [phone] Jeff Grace MD Unavailable Reason for Visit * Reason Onset Date Comments Advise 05/26/2019 Encounter Details Date Type Department Care Team (Late st Contact Info) Description 05/26/2019 [facility]phone [facility] [address] [place] [address] Piyush Pandey MD Advise Social [...] st Contact Info) Description 09/25/2024 2:00 PM STAFF INTERNIST OFFICE BASED ONLY Appointment [facility] [address] [facility] [place] [address] Zayra Powell, QUARTZ MOUNTER [address] [facility] [place] [address] 10/16/2024 3:30 PM STAFF INTERNIST OFFICE BASED ONLY Office Visit [facility] [facility] [address] [facility] [place] [address] Brit Gonzáles MD [address] [place] [address] documented as of this encounter Visit Diagnoses Not on filedocumented in this encounter Care Teams Sail Cutter Relationship Specialty Start Date End Date Megan Infante MD [address] [facility] [place] [address] PCP - General FAMILY PRACTICE 04/06/16 Piyush Pandey MD [place] Change Advisor CARDIOVASCULAR DISEASE 04/06/16 12/28/23 Sharmila Davis, MOBILITY SPECIALIST, WOOD FINISHER-C [address] [facility] [address] [place] [address] NURSE PRACTITIONER 01/04/17 04/03/24 Linda Block MD [address] [facility] [address] [place] [address] [place] Change Advisor CLINICAL CARDIAC ELECTROPHYSIOLOGY 02/08/17 04/12/23 Jeff Grace MD [address] [facility] [address] [place] [address] Consulting Physician INTERNAL MEDICINE 02/20/19 3 documented as of this encounter
--- OUTSIDE RECORDS SUMMARY | 2024-09-03 20:43 | XMS_ITS | Encounter Summary ---
Author Organization [facility] Address [address] [place] [address]. [place] [address] [place] [address] Care Team Providers Care City Marshal Name Role Phone Piyush Pandey MD Unavailable Unavailabl e Megan Infante MD Primary Care Provider [phone] Sharmila Davis APRN, GREEN END MAN-C Unavailable Linda Block MD Unavailable [phone] Jeff Grace MD Unavailable Encounter Details Date Type Department Care Team (Late st Contact Info) Description 06/07/[address] [facility] [place] [address] Hillary Saleh MD [address] [place] [address] Social History Tobacco Use Types [...] st Contact Info) Description 09/25/2024 2:00 PM BLANKBOOK FORWARDER Appointment [facility] [place] [address] Andre Zayra K, LICENSING ANALYST [address] [facility] [place] [address] 10/16/2024 3:30 PM BLANKBOOK FORWARDER Office Visit [place] [facility] [address] [facility] [place] [address] Brit Gonzáles MD [address] [place] [address] documented as of this encounter Results * (ABNORMAL) PRO-BRAIN NATRIURETIC PEPTIDE (06/07/2019 4:10 PM CDT) Pathologist [facility] PRO-B TYPE NATRIURETIC PEPTIDE 190(H) <125 PG/ML 06/07/2019 4:39 PM CDT [facility] Comment: CUT POINTS ESTABLISHED BY INTERNATIONAL [...] CDT Hillary Saleh MD LABORATORY Final Result [facility] [address] [place] [address], * FUNGAL ANTIBODY PANEL 3 (06/07/2019 4:10 PM CDT) Pathologist [facility] HISTOPLASMA AB NEGATIVE NEGATIVE 06/12/2019 9:47 AM CDT [facility] BLASTOMYCES AB NEGATIVE NEGATIVE 06/13/2019 12:04 PM CDT [facility] COCCIDIOIDES AB NEGATIVE NEGATIVE 9 9:47 AM CDT [facility] ASPERGILLUS ANTIBODY NEGATIVE NEGATIVE 06/15/2019 2:49 PM CDT [facility] CRYPTOCOCCAL AG (CSF) NEGATIVE NEGATIVE 06/08/2019 2:46 PM CDT [facility] 06/07/2019 4:10 PM CDT Hillary Saleh MD LABORATORY Final Result [facility] [address] [place] [address], [place] [phone] [id number] * ANGIOTENSIN I ENZYME SERUM (06/07/2019 4:10 PM CDT) STEVIE S/P/B 25 9 - 67 U/L 06/12/2019 5:16 AM CDT [employer] MARTIN Comment: Test Performed by Liberty Martinez, [employer] [facility], [address] [place] [address] Bill Blackmon M.D., Ph.D., Director of Laboratories , [facility] [id number] 06/07/2019 4:10 PM CDT Hillary Saleh MD LABORATORY Final Result Performing Organization Address City/[facility]/ZIP Co de Phone Number [facility] [address] [place] [address] , [place] [phone] documented in this encounter Visit Diagnoses Diagnosis Obstructive chronic bronchitis without exacerbation ([facility]/HCC [facility])- Primary Obstructive chronic bronchitis without exacerbation Lung mass Swelling, mass, or lump in chest documented in this encounter Care Teams City Marshal Relationship Specialty Start Date End Date Megan Infante MD [address] [facility] [place] [address] PCP - General FAMILY PRACTICE 04/06/16 Piyush Pandey MD [place] Professor Of Psychology CARDIOVASCULAR DISEASE 04/06/16 12/28/23 Sharmila Davis APRN, GREEN END MAN-C [address] [facility] [address] [place] [address] NURSE PRACTITIONER 01/04/17 04/03/24 Linda Block MD [address] [facility] [address] [place] [address] [place] Professor Of Psychology CLINICAL CARDIAC ELECTROPHYSIOLOGY 02/08/17 04/12/23 Jeff Grace MD [address] [facility] [address] [place] [address] Consulting Physician INTERNAL MEDICINE 02/20/19 3 documented as of this encounter
--- OUTSIDE RECORDS SUMMARY | 2024-09-03 20:43 | XMS_ITS | Encounter Summary ---
Author Organization [facility] Address [facility] [place] [address] [place] [address] Care Team Providers Care Cryptologic Supervisor Name Role Phone Piyush Pandey MD Unavailable Unavailabl e Megan Infante MD Primary Care Provider [phone] Sharmila Davis APRN PERSONAL LINES INSURANCE ADVISOR-C Unavailable Linda Block MD Unavailable [phone] Jeff Grace MD Unavailable Zaki Ortiz MD Unavailable [phone] Encounter Details Date Type Department Care Team (Late st Contact Info) Description 06/28/2020 Prep for Procedure [facility] Investigator Pre/Post [address] [place] [address] Piyush Pandey MD Social History Tobacco Use [...] COVID-19? Unable to assess 06/24/2020 11:52 AM SOLUTIONS ANALYST documented as of this encounter Plan of Treatment Upcoming Encounters Date Type Department Care Team (Late st Contact Info) Description 09/25/2024 2:00 PM SOLUTIONS ANALYST Appointment [facility] [address] [place] [address] Zayra Powell, SUPERVISOR SLEEPING BAG DEPARTMENT [address] [place] [address] 10/16/2024 3:30 PM SOLUTIONS ANALYST Office Visit [place] [facility] [address] [place] [address] Brit Gonzáles MD [address] [place], [place] [phone] documented as of this encounter Visit Diagnoses Not on filedocumented in this encounter Care Teams Cryptologic Supervisor Relationship Specialty Start Date End Date Megan Infante MD [address] [place] [address] PCP - General FAMILY PRACTICE 04/06/16 Piyush Pandey MD [place] Advertising Photographer CARDIOVASCULAR DISEASE 04/06/16 12/28/23 Sharmila Davis APRN, PERSONAL LINES INSURANCE ADVISOR-C [address] [place] [address] [place] [address] NURSE PRACTITIONER 01/04/17 04/03/24 Linda Block MD [address]19 [facility] 47 [place] [address] [place] Advertising Photographer CLINICAL CARDIAC ELECTROPHYSIOLOGY 02/08/17 04/12/23 Jeff Grace MD [address]19 [facility] 47 [place] [address] Consulting Physician INTERNAL MEDICINE 02/20/19 3 Zaki Ortiz MD [address] [place] [address] Consulting Physician PULMONARY DISEASE 07/12/19 documented as of this encounter
--- OUTSIDE RECORDS SUMMARY | 2024-09-03 20:43 | XMS_ITS | Encounter Summary ---
Author Organization [facility] Address [address] [place] [address]. [place] [address] [place] [address] Care Team Providers Care Tinware Lithograph Press Operator Name Role Phone Piyush Pandey MD Unavailable Unavailabl e Megan Infante MD Primary Care Provider [phone] Sharmila Davis APRN DATA VIRTUALIZATION CONSULTANT-C Unavailable [phone] Linda Block MD Unavailable [phone] Jeff Grace MD Unavailable Zaki Ortiz MD Unavailable [phone] Reason for Visit * Reason Onset Date Comments Other 08/27/2020 is cath schedule d yet? Encounter Details Date Type Department Care Team (Late st Contact Info) Description 08/27/2020 [facility]phone [facility] [address] [place] [address] Piyush Pandey MD Other (is [...] 4:41 PM CST Rescheduled. See other encounter. AL HEALTH CONSULTANT * Bethanie Lay - 08/27/2020 3:[address] Infante's office called inquiring if cath had been rescheduled yet? Informed that the nurse has not reached him yet for some dates that will work for him. AL HEALTH CONSULTANT documented in this encounter Plan of Treatment Upcoming Encounters Date Type Department Care Team (Late st Contact Info) Description 09/25/2024 2:00 PM MENTAL HEALTH CONSULTANT Appointment [facility] [address] [place] [address] Zayra Powell, PHOTO STYLIST [address] [facility] [place] [address] 10/16/2024 3:30 PM MENTAL HEALTH CONSULTANT Office Visit [place] [facility] [address] [facility] [place] [address] Brit Gonzáles MD [address] [place] [address] documented as of this encounter Visit Diagnoses Not on filedocumented in this encounter Care Teams Tinware Lithograph Press Operator Relationship Specialty Start Date End Date Megan Infante MD [address] [place] [address] PCP - General FAMILY PRACTICE 04/06/16 Piyush Pandey MD [place] Forder Operator CARDIOVASCULAR DISEASE 04/06/16 12/28/23 Sharmila Davis APRN, DATA VIRTUALIZATION CONSULTANT-C [address] [place] [address] [address] [place] [address] NURSE PRACTITIONER 01/04/17 04/03/24 Linda Block MD [address] [place] [address] [place] Forder Operator CLINICAL CARDIAC ELECTROPHYSIOLOGY 02/08/17 04/12/23 Jeff Grace MD [address] [facility] [address] [place] [address] Consulting Physician INTERNAL MEDICINE 02/20/19 3 Zaki Ortiz MD [address] [place] [address] Consulting Physician PULMONARY DISEASE 07/12/19 documented as of this encounter
--- OUTSIDE RECORDS SUMMARY | 2024-09-03 20:43 | XMS_ITS | Encounter Summary ---
Author Organization [facility] Address [address] [place] [address]. [place] [address] [place] [address] Care Team Providers Care Delivery Truck Driver Heavy Name Role Phone Piyush Pandey MD Unavailable Unavailabl e Megan Infante MD Primary Care Provider [phone] Sharmila Davis APRN, NP-C Unavailable Linda Block MD Unavailable [phone] Jeff Grace MD Unavailable Zaki Ortiz MD Unavailable [phone] Reason for Visit * Reason Comments Follow Up Encounter Details Date Type Department Care Team (Late st Contact Info) Description 08/02/2020 9:30 AM SHAREPOINT MANAGER [facility]ult [facility] [address] [place] [phone] Piyush Pandey MD Follow Up Social History [...] COVID-19? No / Unsure 07/03/2020 8:36 AM SHAREPOINT MANAGER documented as of this encounter Patient Instructions * Patient Instructions* Megan Lay RN - 08/02/2020 9:30 AM SHAREPOINT MANAGER 1. R/L heart cath in 6 weeks with Lovenox bridge EPOINT MANAGER documented in this encounter Progress Notes [...] Nare route daily., Disp: , Rfl: ??? Qhcukfkspkb-Vjgzzknre-Vafwqt 100-62.5-25 MCG/INH AEROSOL POWDER, BREATH ACTIVATED, Inhale [...] patient aware that the same confidentiality and referral and information aide practices apply. The patient joined the video visit from Home. I completed the virtual visit from Office. The following clinical staff helped with this visit Nurse: Megan Lay. Total Time Spent in Minutes: 11([phone]) Diagnoses/Impression: No diagnosis found. Referring Provider: No ref. provider found PCP: MEGAN INFANTE MD EPOINT MANAGER documented in this encounter Plan of Treatment Upcoming Encounters Date Type Department Care Team (Late st Contact Info) Description 09/25/2024 2:00 PM SHAREPOINT MANAGER Appointment [facility] [address] [place] [address] Zayra Powell, DYE ROOM HELPER [address] [place] [place] [address] 10/16/2024 3:30 PM SHAREPOINT MANAGER Office [facility] [place] [phone] Brit Gonzáles MD [address] [place] [address] documented as of this encounter Visit Diagnoses Diagnosis TIA (transient ischemic attack)- Primary Unspecified transient cerebral ischemia Shortness of breath S/P aortic valve replacement with bioprosthetic valve Heart valve replaced by other means 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 Chronic atrial fibrillation ([facility] [place] [facility]) Atrial fibrillation Essential hypertension Unspecified essential hypertension Mixed hyperlipidemia Chronic obstructive pulmonary disease, unspecified COPD type ([facility] [place] [facility]) documented in this encounter Additional Health Concerns Infection Onset Date Last Indicated Resolved Time COVID-19 Rule Out 09/07/2020 09/07/2020 09/08/2020 5:52 PM SHAREPOINT MANAGER documented as of this encounter Care Teams Delivery Truck Driver Heavy Relationship Specialty Start Date End Date Megan Infante MD [address] [facility] [place] [address] PCP - General FAMILY PRACTICE 04/06/16 Piyush Pandey MD [place] Sports Broadcaster CARDIOVASCULAR DISEASE 04/06/16 12/28/23 Sharmila Davis, DANNY, HYDRO EXCAVATION OPERATOR-C [address] [facility] [address] [place] [address] NURSE PRACTITIONER 01/04/17 04/03/24 Linda Block MD [address] [facility] [address] [place] [address] [employer] Broadcaster CLINICAL CARDIAC ELECTROPHYSIOLOGY 02/08/17 04/12/23 Jeff Grace MD [address] [facility] [address] [place] [address] Consulting Physician INTERNAL MEDICINE 02/20/19 3 Zaki Ortiz MD [address] [facility] [address] [place] [address] Consulting Physician PULMONARY DISEASE 07/12/19 documented as of this encounter
--- OUTSIDE RECORDS SUMMARY | 2024-09-03 20:43 | XMS_ITS | Encounter Summary ---
Author Organization [facility] Address [address] [place] [address]. [place] [address] [place] [address] Care Team Providers Care Yarn Sizer Name Role Phone Piyush Pandey MD Unavailable Unavailabl e Megan Infante MD Primary Care Provider [phone] Sharmila Davis APRN JIG AND FIXTURE BUILDER-C Unavailable Linda Block MD Unavailable [phone] Jeff Grace MD Unavailable Zaki Ortiz MD Unavailable [phone] Encounter Details Date Type Department Care Team (Late st Contact Info) Description 03/02/2020 Orders Only [facility] [address] [facility] [place] [address] Kilo Navarro MD [address] [place] [address] Social History Tobacco Use Types [...] st Contact Info) Description 09/25/2024 2:00 PM INFANT AND TODDLER TEACHER Appointment [facility] [address] [facility] [place] [address] Zayra Powell, HASH SLINGER [address] [facility] [place] [address] 10/16/2024 3:30 PM INFANT AND TODDLER TEACHER Office Visit [facility] [address] [facility] [place] [address] Brit Gonzáles MD [address] [place] [address] documented as of this encounter Results * PRE-SURGICAL/PRE-PROCEDURE CORONAVIRUS (COVID 19) (03/02/2020 6:46 AM CDT) CORONAVIRUS SARS COV 2 PCR (RESP) NOT DETECTED NOT DETECTED 03/03/2020 8:23 PM CDT [facility] Comment: A Not Detected (negative) test [...] providers and patients using the following websites: https://www.MyDeals.com.com/home/Covid-19/HCP/NAAT/fact-sheet2 https://www.MyDeals.com.MoPals/home/Covid-19/Patients/NAAT/ fact-sheet2 This test has been authorized by the FDA under an Emergency Use Authorization (EUA) for use by authorized laboratories. Due to the current public health emergency, [employer] is receiving a high volume of samples [...] about COVID-19 can be found at the [employer] website: www.[employer]/Covid19. Test performed at [facility] [address] ??[phone] Director: REEMA ORDAZ DO,MPH NASOPHARYNGEAL SWAB / Unknown 03/02/2020 6:46 AM CDT us Kilo Navarro MD MICROBIOLOGY - GENERAL ORDERA BLES Final Result [facility] [id number] [place] [address] documented in this encounter Visit Diagnoses Diagnosis Pre-operative laboratory examination- Primary Pre-procedural laboratory examination documented in this encounter Additional Health Concerns Infection Onset Date Last Indicated Resolved Time COVID-19 Rule Out 03/02/2020 03/02/2020 03/03/2020 8:23 PM CDT documented as of this encounter Care Teams Yarn Sizer Relationship Specialty Start Date End Date Megan Infanet MD [address] [facility] [place] [address] PCP - General FAMILY PRACTICE 04/06/16 Piyush Pandey MD [place] Signal Maintenance Technician CARDIOVASCULAR DISEASE 04/06/16 12/28/23 Sharmila Davis APRN, JIG AND FIXTURE BUILDER-C [address] [facility] [address] [place] [address] NURSE PRACTITIONER 01/04/17 04/03/24 Linda Block MD [address] [address] [place] [address] [place] Signal Maintenance Technician CLINICAL CARDIAC ELECTROPHYSIOLOGY 02/08/17 04/12/23 Jeff Grace MD [address] [place] [address] Consulting Physician INTERNAL MEDICINE 02/20/19 3 Zaki Ortiz MD [address] [place] [address] Consulting Physician PULMONARY DISEASE 07/12/19 documented as of this encounter
--- OUTSIDE RECORDS SUMMARY | 2024-09-03 20:43 | XMS_ITS | Encounter Summary ---
Author Organization [facility] Address [address] [place] [address]. [place] [address] [place] [address] Care Team Providers Care Shop Supervisor Name Role Phone Amauri Pandey MD Unavailable Unavailabl e Megan Infante MD Primary Care Provider [phone] Sharmila Davis APRN, NP-C Unavailable [phone] Linda Block MD Unavailable [phone] Jeff Grace MD Unavailable Zaki Ortiz MD Unavailable [phone] Reason for Referral * Imaging (Routine) - Closed Specialty Diagnoses / Procedures Referred By Yung t Referred To Contact RADIOLOGY Diagnoses Mitral regurgitation Procedures USE TRANSESOPHAGEAL ECHO Amauri Pandey MD [facility] [address] [place] [address] Phone: tel: fax: Referral ID Status Reason Start Date Expiration Date Visits Re quested Visits Authorized [id number] Closed 09/24/2020 10/22/2021 1 1 TAMALE WORKER Reason for Visit * Reason Onset Date Comments Schedule Procedure 09/24/2020 NEMO Encounter Details Date Type Department Care Team (Late st Contact Info) Description 09/24/2020 Telephone [facility] [address] [place] [address] Amauri Pandey MD Schedule Procedure [...] COVID-19? No / Unsure 09/10/2020 7:25 AM HOT TAMALE WORKER documented as of this encounter Progress Notes [...] aware of date/time and instructions. Letter mailed. TAMALE WORKER documented in this encounter Plan of Treatment Upcoming Encounters Date Type Department Care Team (Late st Contact Info) Description 09/25/2024 2:00 PM HOT TAMALE WORKER Appointment [facility] [address] [place] [address] Zayra Powell, PERIANESTHESIA MANAGER [address] [place] [address] 10/16/2024 3:30 PM HOT TAMALE WORKER Office Visit [facility] [address] [address] Brit Gonzáles MD [address] [place] [address] documented as of this encounter Results * USE TRANSESOPHAGEAL ECHO (10/10/2020 8:56 AM HOT TAMALE WORKER) Anatomical Region Laterality Modality Cardiac Echocardiogram, Cardiac Electrophysiology, Cardiac Electrophysiology 10/10/2020 7:49 AM HOT TAMALE WORKER Narrative 10/13/2020 5:32 PM HOT TAMALE WORKER ?Transesophageal Echocardiography Report Pat.Name: ??OBIE SIMS ?Pat.ID: ?[id number] ? St.Date: ?? 10/10/2020 ? Refer.: ??[id number] ROBERT Exam Time: 7:49:00 AM ? Study Type:TRANSESOPHAGEAL ECHO (NEMO) Height: ?66.93in ? Weight: ?209lb ? BSA: ? 2.06 m2 ?Age: ??1955,65Y ? Sex: ? MALE ?BP: ?132/74 ? HR: ?86 bpm ?Sonogrphr: Areli Arsenio RDCS ? Pat. Stat.:Outpatient ?CPT - 4: ?[id number] ? Reason for Study:Mitral regurgitation History / [...] Transesophageal Echocardiography Report Pat.Name: OBIE SIMS Pat.ID: [id number] .Date: 10/10/2020 Refer.: [id number], AMAURI PANDEY Exam Time: 7:49:00 AM Study Type:TRANSESOPHAGEAL ECHO (NEMO) Height: 66.93in Weight: 209lb BSA: 2.06 m2 Age: 11 1955,65Y Sex: MALE BP: 132/74 HR: 86 bpm Sonogrphr: Arsenio Singleton [facility] Pat. Stat.:Outpatient CPT - 4: 70112 [id number] Reason for Study:Mitral regurgitation History / Clinical:Shortness [...] disorders documented in this encounter Care Teams Shop Supervisor Relationship Specialty Start Date End Date Megan Infante MD [address] [facility] [place] [address] PCP - General FAMILY PRACTICE 04/06/16 Amauri Pandey MD [place] Chronometer Repairer CARDIOVASCULAR DISEASE 04/06/16 12/28/23 Sharmila Davis, DRIVABILITY TECHNICIAN, COWLMAN-C [address] [facility] [address] [place] [address] NURSE PRACTITIONER 01/04/17 04/03/24 Linda Block MD [address] [facility] [address] [place] [address] [place]upe Chronometer Repairer CLINICAL CARDIAC ELECTROPHYSIOLOGY 02/08/17 04/12/23 Jeff Grace MD [address] [facility] [address] [place] [address] Consulting Physician INTERNAL MEDICINE 02/20/19 3 Zaki Ortiz MD [address] [facility] [address] [place] [address] Consulting Physician PULMONARY DISEASE 07/12/19 documented as of this encounter
--- OUTSIDE RECORDS SUMMARY | 2024-09-03 20:43 | XMS_ITS | Encounter Summary ---
Author Organization [facility] Address [facility] [place] [address] [place] [address] Care Team Providers Care Powder Coater Name Role Phone Piyush Pandey MD Unavailable Unavailabl e Megan Infante MD Primary Care Provider [phone] Sharmila Davis APRN WEALTH MANAGEMENT CONSULTANT-C Unavailable Linda Blcok MD Unavailable [phone] Jeff Grace MD Unavailable Zaki Ortiz MD Unavailable [phone] Encounter Details Date Type Department Care Team (Late st Contact Info) Description 09/05/2020 Orders Only [facility] Boiler Repair Supervisor [address] [place] [address] Piyush Pandey MD Social History Tobacco Use [...] st Contact Info) Description 09/25/2024 2:00 PM SURVEYING CREW STAKE RUNNER Appointment [facility] [address] [place] [address] Zayra Powell Oli, V BELT CURER [address] [place] [address] 10/16/2024 3:30 PM SURVEYING CREW STAKE RUNNER Office Visit [facility] [address] [place] [address] Brit Gonzáles MD [address] [place] [address] documented as of this encounter Results * PRE-SURGICAL/PRE-PROCEDURE CORONAVIRUS (COVID 19) (09/07/2020 8:40 AM SURVEYING CREW STAKE RUNNER) CORONAVIRUS SARS COV 2 PCR (RESP) NOT DETECTED NOT DETECTED 09/08/2020 5:52 PM SURVEYING CREW STAKE RUNNER [facility] Comment: A Not Detected (negative) test result [...] providers and patients using the following websites: https://www.[employer].com/home/Covid-19/HCP/NAAT/fact-sheet2 https://www.[employer].Plethora/home/Covid-19/Patients/NAAT/ fact-sheet2 This test has been authorized by the FDA under an Emergency Use Authorization (EUA) for use by authorized laboratories. Due to the current public health emergency, [facility] is receiving a high volume of samples [...] about COVID-19 can be found at the [employer] website: www.[employer].Plethora/Covid19. Test performed at [facility] [id number] [place] [address] ??[phone] Director: REEMA ORDAZ DO,MPH FIRST TEST UNKNOWN 09/07/2020 8:37 AM SURVEYING CREW STAKE RUNNER [facility] EMPLOYED IN HEALTHCARE NO 09/07/2020 8:37 AM SURVEYING CREW STAKE RUNNER [facility] SYMPTOMATIC DEFINED BY CDC UNKNOWN 09/07/2020 8:37 AM SURVEYING CREW STAKE RUNNER [facility] DATE OF SYMPTOM ONSET UNKNOWN 09/07/2020 8:49 AM SURVEYING CREW STAKE RUNNER [facility] HOSPITALIZATION STATUS NO 09/07/2020 8:37 AM SURVEYING CREW STAKE RUNNER [facility] PATIENT IN ICU NO 09/07/2020 8:37 AM SURVEYING CREW STAKE RUNNER [facility] RESIDENT OF [facility] NO 09/07/2020 8:37 AM SURVEYING CREW STAKE RUNNER [facility] NOT 09/07/2020 8:49 AM SURVEYING CREW STAKE RUNNER [facility] PATIENT'S RACE WHITE OR 09/07/2020 8:37 AM SURVEYING CREW STAKE RUNNER [facility] ETHNICITY NONHISPANIC 09/07/2020 8:37 AM SURVEYING CREW STAKE RUNNER [facility] SOURCE (QST) NASOPHARYNGEAL SWAB 09/07/2020 8:37 AM SURVEYING CREW STAKE RUNNER [facility] NASOPHARYNGEAL SWAB / Unknown 09/07/2020 8:40 AM SURVEYING CREW STAKE RUNNER us Piyush Pandey MD MICROBIOLOGY - GENERAL ORDE LYUBOV Final Result [facility] [address] [email or web address] [address], [facility] [address] [address], documented in this encounter Visit Diagnoses Diagnosis Pre-operative laboratory examination- Primary Pre-procedural laboratory examination documented in this encounter Care Teams Powder Coater Relationship Specialty Start Date End Date Megan Infante MD [address] [facility] [address] [place] [address] PCP - General FAMILY PRACTICE 04/06/16 Piyush Pandey MD [place] Lower In Supervisor CARDIOVASCULAR DISEASE 04/06/16 12/28/23 Sharmila Davis, CONTACT LENS MOLDER, WEALTH MANAGEMENT CONSULTANT-C [address] [facility] [address] [place] [address] NURSE PRACTITIONER 01/04/17 04/03/24 Linda Block MD [address] [address] [place] Lower In Supervisor CLINICAL CARDIAC ELECTROPHYSIOLOGY 02/08/17 04/12/23 Jeff Grace MD [address] [address] Consulting Physician INTERNAL MEDICINE 02/20/19 3 Zaki Ortiz MD [address] [phone] Consulting Physician PULMONARY DISEASE 07/12/19 documented as of this encounter
--- OUTSIDE RECORDS SUMMARY | 2024-09-03 20:43 | XMS_ITS | Encounter Summary ---
Author Organization [facility] Address [facility] [place] [address] [place] [address] Care Team Providers Care System Developer Associate Manager Name Role Phone Piyush Pandey MD Unavailable Unavailabl e Megan Infante MD Primary Care Provider [phone] Sharmila Davis APRN, INTERNATIONAL MARKETING INTERN-C Unavailable [phone] Linda Block MD Unavailable [phone] Jeff Grace MD Unavailable Reason for Visit * Reason Onset Date Comments Results 05/05/2019 Encounter Details Date Type Department Care Team ([facility] st Contact Info) Description 05/05/2019 Telephone [facility] [address] [place] [address] Sharmila aDvis APRN, INTERNATIONAL MARKETING INTERN-C [address] [facility] [address] [place] [address] Results Social History Tobacco Use [...] encounter Progress Notes * Sharmila Davis APRN, INTERNATIONAL MARKETING INTERN-C - 05/05/2019 2:14 PM CDT Spoke with Mendez regarding his labs. No significant abnormalities to explain dyspnea. Continue plan,and call with update Wednesday. He v/u. documented in this encounter Plan of Treatment Upcoming Encounters Date Type Department Care Team (Late st Contact Info) Description 09/25/2024 2:00 PM BOTTOM PRESSER Appointment [facility] [address] [facility] [place] [address] Zayra Powell, FARMER GENERAL [address] [place] [address] 10/16/2024 3:30 PM BOTTOM PRESSER Office Visit [facility] [address] [facility] [address] [address] Brit Gonzáles MD [address] [place], [place] [address] documented as of this encounter Visit Diagnoses Not on filedocumented in this encounter Care Teams System Developer Associate Manager Relationship Specialty Start Date End Date Megan Infante MD [address] [place] [address] PCP - General FAMILY PRACTICE 04/06/16 Piyush Pandey MD [place] Cell Biology Scientist CARDIOVASCULAR DISEASE 04/06/16 12/28/23 Sharmila Davis APRN, INTERNATIONAL MARKETING INTERN-C [address] [facility] [address] [place] [address] NURSE PRACTITIONER 01/04/17 04/03/24 Linda Block MD [address] [facility] [address] [phone] Brady Cell Biology Scientist CLINICAL CARDIAC ELECTROPHYSIOLOGY 02/08/17 04/12/23 Jeff Grace MD [address] [place] [address] Consulting Physician INTERNAL MEDICINE 02/20/19 3 documented as of this encounter
--- OUTSIDE RECORDS SUMMARY | 2024-09-03 20:43 | XMS_ITS | Encounter Summary ---
Author Organization [facility] Address On license of [facility] [place] [address] [place] [address] Care Team Providers Care Boiler Welder Name Role Phone Piyush Pandey MD Unavailable Unavailabl e Megan Infante MD Primary Care Provider [phone] Sharmila Davis APRN PBX REPAIRER-C Unavailable Linda Block MD Unavailable [phone] Jeff Grace MD Unavailable Zaki Ortiz MD Unavailable [phone] Encounter Details Date Type Department Care Team (Late st Contact Info) Description 08/27/2020 Prep for Procedure Sun[employer]'s Director Staffing Pre/Post [address] [place] [address] Piyush Pandey MD Social History Tobacco Use [...] st Contact Info) Description 09/25/2024 2:00 PM PROJECT/PRODUCTION MANAGER IMAGING Appointment [facility] [address] [place] [address] Zayra Powell, POLICE JUDGE [address] [facility] [place] [address] 10/16/2024 3:30 PM PROJECT/PRODUCTION MANAGER IMAGING Office Visit [facility] [address] [facility] [place] [address] Brit Gonzáles MD [address] [place] [address] documented as of this encounter Visit Diagnoses Not on filedocumented in this encounter Care Teams Boiler Welder Relationship Specialty Start Date End Date Megan Infante MD [address] [facility] [place] [address] PCP - General FAMILY PRACTICE 04/06/16 Piyush Pandey MD Kiefer Baffle Installer CARDIOVASCULAR DISEASE 04/06/16 12/28/23 Sharmila Davis APRN, PBX REPAIRER-C [address] [facility] [address] [place] [address] NURSE PRACTITIONER 01/04/17 04/03/24 Linda Block MD [address] [facility] [address] [place] [address] Kiefer Baffle Installer CLINICAL CARDIAC ELECTROPHYSIOLOGY 02/08/17 04/12/23 Jeff Grace MD [address] [facility] [address] [place] [address] Consulting Physician INTERNAL MEDICINE 02/20/19 3 Zaki Ortiz MD [address] [facility] [address] [place] [address] Consulting Physician PULMONARY DISEASE 07/12/19 documented as of this encounter
--- OUTSIDE RECORDS SUMMARY | 2024-09-03 20:43 | XMS_ITS | Encounter Summary ---
Author Organization [facility] - [facility] Address [facility] 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 Chronic atrial fibrillation ([facility]/HCC HHS/HCC) S/P aortic valve replacement with bioprosthetic valve Aortic stenosis Shortness of breath Procedures XA RHC+LHC POSS Amauri Pandey MD [facility] [address] [place] [address] Phone: tel: fax: Referral ID Status Reason Start Date Expiration Date Visits Re quested Visits Authorized [id number] Closed 08/27/2020 09/27/2021 1 1 MBLING MOTOR BUILDER Reason for Visit * Imaging (Routine) - Closed Specialty Diagnoses / Procedures Referred By Yung sequeira Referred To Contact RADIOLOGY Diagnoses 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 Chronic atrial fibrillation ([facility]/HCC HHS/[facility]) S/P aortic valve replacement with bioprosthetic valve Aortic stenosis Shortness of breath Procedures XA RHC+LHC POSS Amauri Pandey MD [facility] [address] [place] [address] Phone: tel: fax: Referral ID Status Reason Start Date Expiration Date Visits Re quested Visits Authorized [id number] Closed 08/27/2020 09/27/2021 1 1 Encounter Details Date Type Department Care Team (Latest Contact Info) Description 09/10/2020 7:27 AM ASSEMBLING MOTOR BUILDER - 09/10/2020 3:06 PM ASSEMBLING MOTOR BUILDER Hospital Encounter [facility] [place] [facility] Pre/Post [address] [place] [address] Amauri Pandey MD Discharge Disposition: Home or [...] COVID-19? No / Unsure 09/10/2020 7:25 AM ASSEMBLING MOTOR BUILDER documented as of this encounter Last Filed Vital Signs Vital Sign Reading Time Taken Comments Blood Pressure 191/94 09/10/2020 7:00 AM ASSEMBLING MOTOR BUILDER Pulse 68 09/10/2020 7:00 AM ASSEMBLING MOTOR BUILDER Temperature 36.1 ??C (97 ??F) 09/10/2020 7:00 AM ASSEMBLING MOTOR BUILDER Respiratory Rate 16 09/10/2020 7:00 AM ASSEMBLING MOTOR BUILDER Oxygen Saturation 98% 09/10/2020 7:00 AM ASSEMBLING MOTOR BUILDER Inhaled Oxygen Concentration - - Weight 95.6 kg (210 lb 12.2 oz) 09/10/2020 7:00 AM ASSEMBLING MOTOR BUILDER Height 170.2 cm (5' 7.01 ) 09/10/2020 7:00 AM CS T Body Mass Index 33 09/10/2020 7:00 AM ASSEMBLING MOTOR BUILDER documented in this encounter Discharge Instructions * Discharge Instructions* Penny Lopez RN - 09/10/2020 2:36 PM ASSEMBLING MOTOR BUILDER Discharge Instructions After Your Cath/Stent Procedure GROIN [...] will besent to your doctor. See your sports psychologist as directed. Continue medications as directed. Our office is open Wednesday through Wednesday from 8:00am to 4:30 pm, if you have general questions or if you need to schedule an appointment. Call at [phone] Due to the sedation you received today, (for 24 hours) please do not: -Sign any legal documents or make any important decisions -Drink alcohol or take medication intended to make you sleep -Drive a car or operate any hazardous machinery MBLING MOTOR BUILDER documented in this encounter Medications at Time [...] he presented to the emergency room in [place]. His neurologic symptomatology seemed to resolve after [...] Nare route daily., Disp: , Rfl: ??? Esfqzkmjazk-Jxtzstvsg-Dcjhmn 100-62.5-25 MCG/INH AEROSOL POWDER, BREATH ACTIVATED, Inhale [...] Heart Failure ?? Referring Provider: Megan Infante MBLING MOTOR BUILDER documented in this encounter OR Notes * [...] None Anesthesia: Local and Procedural Surgeon: Katherin Assorter: None Estimated Blood Loss: Minimal AMAURI PANDEY MD Date: 09/10/2020 Time: 10:58 AM MBLING MOTOR BUILDER documented in this encounter Plan of Treatment Upcoming Encounters Date Type Department Care Team (Late st Contact Info) Description 09/25/2024 2:00 PM ASSEMBLING MOTOR BUILDER Appointment [facility] [address] [place] [address] Zayra Powell, CORRECTIONAL FACILITY NURSE [address] [place] [address] 10/16/2024 3:30 PM ASSEMBLING MOTOR BUILDER Office Visit [facility] [address] [place] [phone] Brit Gonzáles MD [address] [place] [address] documented as of this encounter Procedures Procedure Name Priority Date/Time Associated Diagnosis Comments XA RHC+LHC POSS Routine 09/10/2020 10:19 AM ASSEMBLING MOTOR BUILDER 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 Chronic atrial fibrillation ([facility]) S/P aortic valve replacement with bioprosthetic valve Aortic stenosis Shortness of breath PROTHROMBIN TIME, VENOUS STAT 09/10/2020 8:10 AM ASSEMBLING MOTOR BUILDER ECG 12-LEAD STAT 09/10/2020 8:07 AM ASSEMBLING MOTOR BUILDER documented in this encounter Results * XA RHC+LHC POSS (09/10/2020 10:19 AM ASSEMBLING MOTOR BUILDER) Anatomical Region Laterality Modality Cardiac Coil Winder Hand 09/10/2020 9:30 AM ASSEMBLING MOTOR BUILDER Amauri Pandey MD BEEF RIBBER Final Resul t * (ABNORMAL) PROTIME/INR, VENOUS (09/10/2020 8:10 AM ASSEMBLING MOTOR BUILDER) PROTIME 15.0(H) 10.2 - 12.9 SEC 09/10/2020 9:09 AM ASSEMBLING MOTOR BUILDER [facility] INR 1.3(H) 0.9 - 1.1 09/10/2020 9:09 AM ASSEMBLING MOTOR BUILDER [facility] 09/10/2020 8:10 AM ASSEMBLING MOTOR BUILDER Amauri Pandey MD LABORATORY Final Resul t [facility] [address] [place] [address], [id number] * ECG 12 lead (09/10/2020 8:07 AM ASSEMBLING MOTOR BUILDER) 09/10/2020 8:07 AM ASSEMBLING MOTOR BUILDER Narrative [facility] - 09/10/2020 12:17 PM ASSEMBLING MOTOR BUILDER ? [facility] ?[address] [place], [place] ??[address] ? Test Date: ?2020-09-10 Pat Name: ? OBIE SIMS ?Department: ? Room: ? [id number] Gender: ? Male ? Sales And Service Specialist: ?? Ll : ?1955 ? Requested By: AMAURI PANDEY Order Number: [id number] ? Reading MD: ?? Amauri Pandey ? Measurements Intervals ?[place] ? Rate: ? 76 ? P: ? NC: ? 0 ?QRS: ?-29 QRSD: ? 142 ?T: ?135 QT: ? 408 ? QTc: ?461 ? Interpretive Statements ATRIAL FIBRILLATION NONSPECIFIC INTRAVENTRICULAR BLOCK MBLING MOTOR BUILDER Procedure Note Amauri Pandey MD - 09/10/2020 [place] [address] [place] [address] Test Date: 2020-09-10 Pat Name: OBIE SIMS Department: Room: [address] Gender: Male Sales And Service Specialist: : 1955 Requested By: AMAURI PANDEY Order Number: [id number] Sage MD: Amauri Pandey Measurements Intervals [place] Rate: 76 P: NC: 0 QRS: -29 QRSD: 142 T: 135 QT: 408 QTc: 461 Interpretive Statements ATRIAL FIBRILLATION NONSPECIFIC INTRAVENTRICULAR BLOCK MBLING MOTOR BUILDER us Amauri Pandey MD ECG ORDERABLES Final Resul t [facility] documented in this encounter Visit Diagnoses Diagnosis 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 Given 09/10/2020 10:39 AM ASSEMBLING MOTOR BUILDER 10 mg hydrALAZINE (APRESOLINE) injection 10 mg [...] in 24 hours. Given 09/10/2020 12:16 PM ASSEMBLING MOTOR BUILDER 1 tablet rdabflmsk-sddluygt-yxlnrjwtvhs (MYLANTA MAXIMUM STRENGTH) 4019-1450-097 mg/30mL suspension 10 mL, Oral, Every 4 [...] Recently Administered Medications Times are shown in ASSEMBLING MOTOR BUILDER. Scheduled Medication Order 09/08/2020 09/09/2020 09/10/2020 amLODIPine (NORVASC) tablet 2.5 mg (COMPLETED) 2.5 mg, Oral, Once, 1 dose, On Wed09/10/20 at 1115 1107 (Given - Provid er: Penny Lopez RN) carvedilol (COREG) tablet 6.25 mg (COMPLETED) 6.25 mg, Oral, Once, 1 dose, On Wed09/10/20 at 1115, Take with meal or snack 1107 (Given - Provid er: Penny Loepz RN) hydrALAZINE (APRESOLINE) injection 10 mg (COMPLETED) [...] (Given - Provid er: Penny Lopez RN) hjkzqpxdj-kdysoduw-pniymqwatev (MYLANTA MAXIMUM STRENGTH) 7997-8737-765 mg/30mL suspension 10 mL, Oral, Every 4 [...] Post-Op documented in this encounter Care Teams Oil House Attendant Relationship Specialty Start Date End Date Megan Infante MD [address] [place] [phone] PCP - General FAMILY PRACTICE 04/06/16 Amauri Pandey MD [place] Sales And Marketing Representative CARDIOVASCULAR DISEASE 04/06/16 12/28/23 Sharmila Davis APRN, PARANORMAL INVESTIGATOR-C [address] [facility] [address] [place] [phone] NURSE PRACTITIONER 01/04/17 04/03/24 Linda Block MD [address] [phone] [place] Sales [employer] Marketing Representative CLINICAL CARDIAC ELECTROPHYSIOLOGY 02/08/17 04/12/23 Jeff Grace MD [address] [phone] Consulting Physician INTERNAL MEDICINE 02/20/19 3 Zaki Ortiz MD [address] [phone] Consulting Physician PULMONARY DISEASE 07/12/19 documented as of this encounter
--- OUTSIDE RECORDS SUMMARY | 2024-09-03 20:43 | XMS_ITS | Encounter Summary ---
Author Organization [facility] Address [address] [place] [address]. [place] [address] [place] [address] Care Team Providers Care Problem Manager Name Role Phone Piyush Pandey MD Unavailable Unavailabl e Megan Infante MD Primary Care Provider [phone] Sharmila Davis APRN SURGERY CONSULTANT-C Unavailable Linda Block MD Unavailable [phone] Jeff Grace MD Unavailable Zaki Ortiz MD Unavailable [phone] Encounter Details Date Type Department Care Team (Latest Contact Info) Description 07/03/2020 8:35 AM PATHOLOGICAL TECHNICIAN - 07/03/2020 11:59 PM PATHOLOGICAL TECHNICIAN Hospital Encounter [facility] [address] [facility] [place] [address] Piyush Pandey MD Discharge Disposition: Home or [...] COVID-19? No / Unsure 07/03/2020 8:36 AM PATHOLOGICAL TECHNICIAN documented as of this encounter Medications at [...] st Contact Info) Description 09/25/2024 2:00 PM PATHOLOGICAL TECHNICIAN Appointment [facility] [address] [place] [address] Zayra Powell, CHILDCARE CENTER DIRECTOR [address] [place] [address] 10/16/2024 3:30 PM PATHOLOGICAL TECHNICIAN Office Visit [facility] [place] [phone] Brit Gonzáles MD [address] [place] [address] documented as of this encounter Procedures Procedure Name Priority Date/Time Associated Diagnosis Comments CORONAVIRUS (COVID 19) Routine 07/03/2020 8:55 AM PATHOLOGICAL TECHNICIAN Pre-operative laboratory examination PROTHROMBIN TIME, VENOUS Routine 07/03/2020 8:54 AM PATHOLOGICAL TECHNICIAN Coronary artery disease involving ambler coronary artery of ambler heart without angina pectoris S/P aortic valve replacement with bioprosthetic valve Aortic stenosis Chronic atrial fibrillation (CMS/HCC HHS/HCC) BASIC METABOLIC PANEL Routine 07/03/2020 8:54 AM PATHOLOGICAL TECHNICIAN Coronary artery disease involving ambler coronary artery of ambler heart without angina pectoris S/P aortic valve replacement with bioprosthetic valve Aortic stenosis Chronic atrial fibrillation (CMS/HCC HHS/HCC) CBC W/DIFF AUTOMATED Routine 07/03/2020 8:54 AM PATHOLOGICAL TECHNICIAN Coronary artery disease involving ambler coronary artery of ambler heart without angina pectoris S/P aortic valve replacement with bioprosthetic valve Aortic stenosis Chronic atrial fibrillation (CMS/HCC HHS/HCC) MAGNESIUM Routine 07/03/2020 8:54 AM PATHOLOGICAL TECHNICIAN Coronary artery disease involving ambler coronary artery of ambler heart without angina pectoris S/P aortic valve replacement with bioprosthetic valve Aortic stenosis Chronic atrial fibrillation (CMS/HCC HHS/HCC) documented in this encounter Results * PRE-SURGICAL/PRE-PROCEDURE CORONAVIRUS (COVID 19) (07/03/2020 8:55 AM PATHOLOGICAL TECHNICIAN) CORONAVIRUS SARS COV 2 PCR (RESP) NOT DETECTED NOT DETECTED 07/04/2020 11:25 PM PATHOLOGICAL TECHNICIAN [facility] Comment: A Not Detected (negative) test [...] providers and patients using the following websites: https://www.[employer].Omnistream/home/Covid-19/HCP/NAAT/fact-sheet2 https://www.Xceed[employer].Omnistream/home/Covid-19/Patients/NAAT/ fact-sheet2 This test has been authorized by the FDA under an Emergency Use Authorization (EUA) for use by authorized laboratories. Due to the current public health emergency, [facility] is receiving a high volume of samples [...] about COVID-19 can be found at the [facility] website: www.[employer]Comm.Omnistream/Covid19. Test performed at [facility] [address] ??[phone] Director: REEMA ORDAZ DO,MPH FIRST TEST UNKNOWN 07/03/2020 8:47 AM [facility] EMPLOYED IN HEALTHCARE UNKNOWN 07/03/2020 8:47 AM [facility] SYMPTOMATIC DEFINED BY CDC UNKNOWN 07/03/2020 8:47 AM [facility] DATE OF SYMPTOM ONSET UNKNOWN 07/03/2020 8:57 AM [facility] HOSPITALIZATION STATUS NO 07/03/2020 8:47 AM PATHOLOGICAL TECHNICIAN [facility] PATIENT IN ICU NO 07/03/2020 8:47 AM PATHOLOGICAL TECHNICIAN [facility] RESIDENT OF CONGREGATE CARE UNKNOWN 07/03/2020 8:47 AM PATHOLOGICAL TECHNICIAN [facility] NOT 07/03/2020 8:57 AM PATHOLOGICAL TECHNICIAN [facility] PATIENT'S RACE WHITE OR 07/03/2020 8:47 AM PATHOLOGICAL TECHNICIAN [facility] ETHNICITY NONHISPANIC 07/03/2020 8:47 AM PATHOLOGICAL TECHNICIAN [facility] SOURCE (QST) NASOPHARYNGEAL SWAB 07/03/2020 8:47 AM PATHOLOGICAL TECHNICIAN [facility] NASOPHARYNGEAL SWAB / Unknown 07/03/2020 8:55 AM PATHOLOGICAL TECHNICIAN Piyush Pandey MD MICROBIOLOGY - [facility] Final Result Performing Organization Address City/[facility]/ZIP Co de Phone Number [facility] [place] [address], [employer] [address] * (ABNORMAL) PROTIME/INR, VENOUS (07/03/2020 8:54 AM PATHOLOGICAL TECHNICIAN) PROTIME 19.1(H) 9.4 - 12.5 SEC 07/03/2020 9:27 AM PATHOLOGICAL TECHNICIAN [facility] INR 1.7(H) 0.9 - 1.1 07/03/2020 9:27 AM PATHOLOGICAL TECHNICIAN [facility] 07/03/2020 8:54 AM PATHOLOGICAL TECHNICIAN Piyush Pandey MD LABORATORY Final Resul t [facility] [address] [place] [address], * MAGNESIUM (07/03/2020 8:54 AM PATHOLOGICAL TECHNICIAN) MAGNESIUM 2.2 1.8 - 2.4 MG/DL 07/03/2020 9:13 AM PATHOLOGICAL TECHNICIAN [facility] 07/03/2020 8:54 AM PATHOLOGICAL TECHNICIAN us Piyush Pandey MD LABORATORY Final Resul t [facility] [address] [place] [address], * (ABNORMAL) CBC W/DIFF AUTOMATED (07/03/2020 8:54 AM PATHOLOGICAL TECHNICIAN) WBC 9.9 4.5 - 10.8 x10'3/uL 07/03/2020 9:00 AM [facility] RBC 4.37(L) 4.50 - 6.10 x10'6/uL 07/03/2020 9:00 AM [facility] HGB 12.2(L) 13.0 - 18.0 G/DL 07/03/2020 9:00 AM [facility] HCT 38.7 37.0 - 52.0 % 07/03/2020 9:00 AM [facility] MCV 88.6 78.0 - 100.0 FL 07/03/2020 9:00 AM [facility] MCH 27.9 27.0 - 31.0 PG 07/03/2020 9:00 AM [facility] MCHC 31.5(L) 33.0 - 36.0 G/DL 07/03/2020 9:00 AM [facility] RDW 14.4 11.5 - 14.5 % 07/03/2020 9:00 AM [facility] PLT 243 150 - 350 x10'3/uL 07/03/2020 9:00 AM [facility] MPV 9.7 7.4 - 10.4 FL 07/03/2020 9:00 AM [facility] DIFFERENTIAL COMMENT NORMAL REFERENCE RANGE NOT ESTABLISHED FOR THE PROPORTIONAL LEUKOCYTE DIFFERENTIAL. 07/03/2020 9:00 AM [facility] SEG NEUTROPHILS 59.9 % 0 9:00 AM [facility] LYMPHOCYTES 22.6 % 07/03/2020 9:00 AM [facility] MONOCYTES 11.3 % 07/03/2020 9:00 AM [facility] EOSINOPHILS 5.3 % 07/03/2020 9:00 AM [facility] BASOPHILS 0.5 % 07/03/2020 9:00 AM [facility] IMMATURE GRANS % 0.4 % 07/03/20 20 9:00 AM [facility] NRBC 0.0 % 07/03/2020 9:00 AM [facility] ABS. NEUTROPHILS 5.93 1.60 - 8.30 x10'3/uL 07/03/2020 9:00 AM [facility] ABS. LYMPHOCYTES 2.24 0.80 - 4.70 x10'3/uL 07/03/2020 9:00 AM [facility] ABS. MONOCYTES 1.12 0.00 - 1.50 x10'3/uL 07/03/2020 9:00 AM [facility] ABS. EOSINOPHILS 0.53(H) 0.00 - 0.40 x10'3/uL 07/03/2020 9:00 AM [facility] ABS. BASOPHILS 0.05 0.00 - 0.20 x10'3/uL 07/03/2020 9:00 AM [facility] ABS. IMMATURE GRANULOCYTES 0.04(H) 0.00 - 0.03 x10'3/uL 07/03/2020 9:00 AM [facility] ABS. NUCLEATED RBC'S 0.00 0.00 x10'3/uL 07/03/2020 9:00 AM [facility] 07/03/2020 8:54 AM PATHOLOGICAL TECHNICIAN us Piyush Pandey MD LABORATORY Final Resul t [facility] [address] [place] [address], * (ABNORMAL) BASIC METABOLIC PANEL (07/03/2020 8:54 AM PATHOLOGICAL TECHNICIAN) SODIUM S/P/B 133(L) 136 - 145 MMOL/L 07/03/2020 9:13 AM [facility] POTASSIUM S/P/B 4.4 3.5 - 5.1 MMOL/L 07/03/2020 9:13 AM [facility] CHLORIDE S/P/B 95(L) 98 - 107 MMOL/L 07/03/2020 9:13 AM [facility] CO2 32.4(H) 21.0 - 32.0 MMOL/L 07/03/2020 9:13 AM [facility] GLUCOSE 161(H) 70 - 99 MG/DL 07/03/2020 9:13 AM [facility] Comment: FASTING GLUCOSE 100 TO 125 MG/DL IS CONSISTENT WITH IMPAIRED FASTING GLUCOSE. FASTING GLUCOSE >125 MG/DL IS CONSISTENT WITH DIABETES. RANDOM GLUCOSE >200 MG/DL WITH HYPERGLYCEMIC SYMPTOMS IS CONSISTENT WITH DIABETES. PER ADA GUIDELINES BUN 30(H) 6 - 24 MG/DL 07/03/2020 9:13 AM [facility] CREATININE S/P/B 1.92(H) 0.70 - 1.30 MG/DL 07/03/2020 9:13 AM [facility] CALCIUM S/P/B 10.1 8.4 - 10.5 MG/DL 07/03/2020 9:13 AM [facility] ANION GAP 5.6 5.0 - 15.0 MMOL/L 07/03/2020 9:13 AM [facility] OSMOLALITY (CALC) 286 MOSM/KG 020 9:13 AM [facility] Comment:REFERENCE RANGE NOT ESTABLISHED EGFR NON-AFR. AMER. 36(L) >89 ML/MIN/1. 73 M2 07/03/2020 9:13 AM [facility] EGFR AFR. AMER. 41(L) >89 ML/MIN/1. 73 M2 07/03/2020 9:13 AM [facility] GFR NOTES GFR REFERENCE S: 07/03/2020 9:13 AM [facility] Comment: THE [...] FAILURE: <15 ml/min/1.73 m2 07/03/2020 8:54 AM PATHOLOGICAL TECHNICIAN us Piyush Pandey MD LABORATORY Final Resul t [facility] [address] [place] [address], documented in this encounter Visit Diagnoses Diagnosis Coronary artery disease involving ambler coronary artery of ambler heart without angina pectoris S/P aortic valve replacement with bioprosthetic valve Heart valve replaced by other means Aortic stenosis Aortic valve disorders Chronic atrial fibrillation ([facility]) Atrial fibrillation Pre-operative laboratory examination Pre-procedural laboratory examination documented in this encounter Additional Health Concerns Infection Onset Date Last Indicated Resolved Time COVID-19 Rule Out 07/03/2020 07/03/2020 07/04/2020 11:25 PM PATHOLOGICAL TECHNICIAN documented as of this encounter Care Teams Problem Manager Relationship Specialty Start Date End Date Megan Infante MD [address] [place] [phone] PCP - General FAMILY PRACTICE 04/06/16 Piyush Pandey MD [place] Training [employer] Quality Manager CARDIOVASCULAR DISEASE 04/06/16 12/28/23 Sharmila Davis APRN, SURGERY CONSULTANT-C [address] [facility] [address] [phone] NURSE PRACTITIONER 01/04/17 04/03/24 Linda Block MD [address] [phone] [place] Training And Quality Manager CLINICAL CARDIAC ELECTROPHYSIOLOGY 02/08/17 04/12/23 Jeff Grace MD [address] [phone] Consulting Physician INTERNAL MEDICINE 02/20/19 3 Zaki Ortiz MD [address] [phone] Consulting Physician PULMONARY DISEASE 07/12/19 documented as of this encounter
--- OUTSIDE RECORDS SUMMARY | 2024-09-03 20:43 | XMS_ITS | Encounter Summary ---
Author Organization [facility] Address [address] [place] [address]. [place] [address] [place] [address] Care Team Providers Care City Library Director Name Role Phone Piyush Pandey MD Unavailable Unavailabl e Megan Infante MD Primary Care Provider [phone] Sharmila Davis APRN, NP-C Unavailable Linda Block MD Unavailable [phone] Jeff Grace MD Unavailable Zaki Ortiz MD Unavailable [phone] Reason for Visit * Reason Onset Date Comments Reschedule 08/01/2020 Encounter Details Date Type Department Care Team (Late st Contact Info) Description 08/01/2020 Telephone [facility] [address] [place] [address] Piyush Pandey MD Reschedule Social History Tobacco [...] COVID-19? No / Unsure 07/03/2020 8:36 AM CONFERENCE PLANNING MANAGER documented as of this encounter Progress Notes * Megan Lay RN - 08/01/2020 11:[address] Pandey is tied up in record label intern. Informed pt we will need to reschedule his telephone call today. Rescheduled to tomorrow at 9:30am. Patient verbalized understanding and had no further questions. ERENCE PLANNING MANAGER documented in this encounter Plan of Treatment Upcoming Encounters Date Type Department Care Team (Late st Contact Info) Description 09/25/2024 2:00 PM CONFERENCE PLANNING MANAGER Appointment [facility] [address] [place] [address] Zayra Powell, [facility] [address] [facility] [place] [address] 10/16/2024 3:30 PM CONFERENCE PLANNING MANAGER Office Visit [facility] [address] [facility] [place] [phone] rBit Gonzáles MD [address] [place] [address] documented as of this encounter Visit Diagnoses Not on filedocumented in this encounter Care Teams City Library Director Relationship Specialty Start Date End Date Megan Infante MD [address] [facility] [address] [place] [phone] PCP - General FAMILY PRACTICE 04/06/16 Piyush Pandey MD [place] Clinical Counselor CARDIOVASCULAR DISEASE 04/06/16 12/28/23 Sharmila Davis APRN, CAR DUMPER-C [address] [place] [address] [address] [place] [address] NURSE PRACTITIONER 01/04/17 04/03/24 Linda Block MD [facility] [address] [place] [address] [place] Clinical Counselor CLINICAL CARDIAC ELECTROPHYSIOLOGY 02/08/17 04/12/23 Jeff Grace MD [address] [place] [address] Consulting Physician INTERNAL MEDICINE 02/20/19 3 Zaki Ortiz MD [address] [place] [address] Consulting Physician PULMONARY DISEASE 07/12/19 documented as of this encounter
--- OUTSIDE RECORDS SUMMARY | 2024-09-03 20:43 | XMS_ITS | Encounter Summary ---
Author Organization [facility] Address [facility] [address] [place] [address] Care Team Providers Care Lock Plater Name Role Phone Piyush Pandey MD Unavailable Unavailabl e Megan Infante MD Primary Care Provider [phone] Sharmila Davis APRN, NAIL EXPERT-C Unavailable [phone] Linda Block MD Unavailable [phone] Jeff Grace MD Unavailable Zaki Ortiz MD Unavailable [phone] Encounter Details Date Type Department Care Team [...] Contact Info) Description 09/25/2024 2:00 PM LEAD CASE MANAGER Appointment [facility] [address] [place], [facility] Zayra Powell, [facility] [address] [place] [phone] 10/16/2024 3:30 PM LEAD CASE MANAGER [facility] [address] [place] [address] Brit Gonzáles MD [address] [place], [place] [phone] documented as of this encounter Visit Diagnoses Not on filedocumented in this encounter Additional Health Concerns Infection Onset Date Last Indicated Resolved Time COVID-19 Rule Out 03/02/2020 03/02/2020 03/03/2020 8:23 PM CDT documented as of this encounter Care Teams Lock Plater Relationship Specialty Start Date End Date Megan Infante MD [address] [place] [address] PCP - General FAMILY PRACTICE 04/06/16 Piyush Pandey MD [place] Customer Service Specialist CARDIOVASCULAR DISEASE 04/06/16 12/28/23 Sharmila Davis, DANNY, NAIL EXPERT-C [address] [facility] [address] [place] [address] NURSE PRACTITIONER 01/04/17 04/03/24 Linda Block MD [address] [facility] [address] [place] [address] [place] Customer Service Specialist CLINICAL CARDIAC ELECTROPHYSIOLOGY 02/08/17 04/12/23 Jeff Grace MD [address] [facility] 47 [place] [address] Consulting Physician INTERNAL MEDICINE 02/20/19 3 Zaki Ortiz MD [address] [facility] [address] [place] [address] Consulting Physician PULMONARY DISEASE 07/12/19 documented as of this encounter
--- OUTSIDE RECORDS SUMMARY | 2024-09-03 20:43 | XMS_ITS | Encounter Summary ---
Author Organization [facility] Address [address] [place] [address]. [place] [address] [place] [address] Care Team Providers Care Car Wash Attendant Name Role Phone Piyush Pandey MD Unavailable Unavailabl e Megan Infante MD Primary Care Provider [phone] Sharmila Davis APRN, NP-C Unavailable [phone] Linda Block MD Unavailable [phone] Jeff Grace MD Unavailable Zaki Ortiz MD Unavailable [phone] Reason for Visit * Reason Onset Date Comments Follow Up Call 07/10/2020 Encounter Details Date Type Department Care Team (Late st Contact Info) Description 07/10/2020 [facility] [address] [place] [address] Piyush Pandey MD Follow Up [...] COVID-19? No / Unsure 07/03/2020 8:36 AM PLASTIC MOULD MAKER documented as of this encounter Progress Notes [...] Mariel v/u and had no further questions. TIC MOULD MAKER * Bethanie Lay - 07/11/2020 9:02 AM CST They are faxing to [place] office fax. TIC MOULD MAKER * Megan Lay RN - 07/10/2020 2:48 [...] no further questions. Will request records from [place]. TIC MOULD MAKER * Libra Leyva - 07/10/2020 1:22 PM [...] Dr. Infante's office is checking with the [place] office to see how we want to proceed. Please return call to [phone]. It was advised that he fo llow-up with Dr. Pandey. TIC MOULD MAKER documented in this encounter Plan of Treatment Upcoming Encounters Date Type Department Care Team (Late st Contact Info) Description 09/25/2024 2:00 PM PLASTIC MOULD MAKER Appointment [facility] [address] [place] [address] Zayra Powell, CONDITIONER TUMBLER [address] [facility] [place] [address] 10/16/2024 3:30 PM PLASTIC MOULD MAKER Office Visit [facility] [facility] [address] [facility] [place] [address] Brit Gonzáles MD [address] [place] [address] documented as of this encounter Visit Diagnoses Not on filedocumented in this encounter Care Teams Car Wash Attendant Relationship Specialty Start Date End Date Megan Infante MD [address] [facility] [place] [address] PCP - General FAMILY PRACTICE 04/06/16 Piyush Pandey MD [place] Training And Development Officer CARDIOVASCULAR DISEASE 04/06/16 12/28/23 Sharmila Davis APRN, COOK ITALIAN STYLE FOOD-C [address] [facility] [address] [place] [address] NURSE PRACTITIONER 01/04/17 04/03/24 Linda Block MD [address] [facility] [address] [place] [address] [place] Training And Development Officer CLINICAL CARDIAC ELECTROPHYSIOLOGY 02/08/17 04/12/23 Jeff Grace MD [address] [place] [address] Consulting Physician INTERNAL MEDICINE 02/20/19 3 Zaki Ortiz MD [address] [place] [address] Consulting Physician PULMONARY DISEASE 07/12/19 documented as of this encounter
--- OUTSIDE RECORDS SUMMARY | 2024-09-03 20:43 | XMS_ITS | Encounter Summary ---
Author Organization [facility] Address Pending sale to [facility] [place] [address] [place] [address] Care Team Providers Care Coal Washer Name Role Phone Piyush Pandey MD Unavailable Unavailabl e Megan Infante MD Primary Care Provider [phone] Sharmila Davis APRN, REVENUE CYCLE SPECIALIST-C Unavailable [phone] Linda Block MD Unavailable [phone] Jeff Grace MD Unavailable Zaki Ortiz MD Unavailable [phone] Encounter Details Date Type Department Care Team [...] COVID-19? No / Unsure 07/03/2020 8:36 AM MENHADEN FISHING CREW MEMBER documented as of this encounter Plan of Treatment Upcoming Encounters Date Type Department Care Team (Late st Contact Info) Description 09/25/2024 2:00 PM MENHADEN FISHING CREW MEMBER Appointment [facility] [address] [place], [place] [phone] Zayra Powell, [facility] [address] [place] [phone] 10/16/2024 3:30 PM MENHADEN FISHING CREW MEMBER Office [facility] [address] [place] [address] Brit Gonzáles MD [address] [place] [address] documented as of this encounter Visit Diagnoses Not on filedocumented in this encounter Additional Health Concerns Infection Onset Date Last Indicated Resolved Time COVID-19 Rule Out 07/03/2020 07/03/2020 07/04/2020 11:25 PM MENHADEN FISHING CREW MEMBER documented as of this encounter Care Teams Coal Washer Relationship Specialty Start Date End Date Megan Infante MD [address] [place] [address] PCP - General FAMILY PRACTICE 04/06/16 Piyush Pandey MD [place] Sales Representative [employer]s CARDIOVASCULAR DISEASE 04/06/16 12/28/23 Sharmila Davis, DANNY, REVENUE CYCLE SPECIALIST-C [address] [facility] 47 [place] [address] NURSE PRACTITIONER 01/04/17 04/03/24 Linda Block MD [address] [facility] [address] [place] [address] [place] Sales Representative [employer] CLINICAL CARDIAC ELECTROPHYSIOLOGY 02/08/17 04/12/23 Jeff Grace MD [address] [facility] 47 [place] [address] Consulting Physician INTERNAL MEDICINE 02/20/19 3 Zaki Ortiz MD [address] [facility] [address] [place] [address] Consulting Physician PULMONARY DISEASE 07/12/19 documented as of this encounter
--- OUTSIDE RECORDS SUMMARY | 2024-09-03 20:43 | XMS_ITS | Encounter Summary ---
Author Organization [facility] Address [facility] [place] [address] [place] [address] Care Team Providers Care Pension Agent Name Role Phone Piyush Pandey MD Unavailable Unavailabl e Megan Infante MD Primary Care Provider [phone] Sharmila Davis APRN, COLD STORAGE SUPERVISOR-C Unavailable Linda Block MD Unavailable [phone] Jeff Grace MD Unavailable Encounter Details Date Type Department Care Team (Latest Contact Info) Description 05/05/2019 11:50 AM CDT - 05/05/2019 11:59 PM CDT Hospital Encounter [facility] [address] [place] [address] Sharmila Davis, DANNY, COLD STORAGE SUPERVISOR-C [address] [facility] [address] [place] [address] Discharge Disposition: Home or Self Care (Routine [...] Info) Description 09/25/2024 2:00 PM MANAGER UTILIZATION REVIEW Appointment [facility] [address] [place] [address] Zayra Powell, MANUFACTURER [address] [place] [address] 10/16/2024 3:30 PM MANAGER UTILIZATION REVIEW Office Visit [facility] [address] [place] [phone] Brit Gonzáles MD [address] [place] [address] documented as of this encounter Procedures Procedure Name Priority Date/Time Associated Diagnosis Comments PRO-BRAIN NATRIURETIC PEPTIDE Routine 05/05/2019 11:59 AM CDT Shortness of breath PROTHROMBIN TIME, VENOUS Routine 05/05/2019 11:59 AM CDT Current use of machine long goods helper anticoagulation COMPREHENSIVE METABOLIC PANEL Routine 05/05/2019 11:59 AM CDT Shortness of breath CBC, AUTO, NO DIFF Routine 05/05/2019 11 :59 AM CDT Shortness of breath documented in this encounter Results * (ABNORMAL) CBC, AUTO, NO DIFF (05/05/2019 11:59 AM CDT) WBC 9.3 4.0 - 10.8 x10'3/uL 05/05/2019 12:07 PM CDT [facility] RBC 4.04(L) 4.50 - 6.10 x10'6/uL 05/05/2019 12:07 PM CDT [facility] HGB 12.3(L) 13.0 - 18.0 G/DL 05/05/2019 12:07 PM CDT [facility] HCT 37.9 37.0 - 52.0 % 05/05/2019 12:07 PM CDT [facility] MCV 93.8 78.0 - 100.0 FL 05/05/2019 12:07 PM CDT [facility] MCH 30.4 27.0 - 31.0 PG 05/05/2019 12:07 PM CDT [facility] MCHC 32.5(L) 33.0 - 36.0 G/DL 05/05/2019 12:07 PM CDT [facility] RDW 14.7(H) 11.5 - 14.5 % 05/05/2019 12:07 PM CDT [facility] PLT 217 150 - 350 x10'3/uL 05/05/2019 12:07 PM CDT [facility] MPV 9.4 7.4 - 10.4 FL 05/05/2019 12:07 PM CDT [facility] 05/05/2019 11:5 9 AM CDT STERLING Guillen APRN LABORATORY Final Result [facility] [address] [place] [address], [place] [phone] [id number] * (ABNORMAL) COMPREHENSIVE METABOLIC PANEL (05/05/2019 11:59 AM CDT) SODIUM S/P/B 133(L) 136 - 145 MMOL/L 05/05/2019 12:35 PM CDT [facility] POTASSIUM S/P/B 3.9 3.5 - 5.1 MMOL/L 05/05/2019 12:35 PM CDT [facility] CHLORIDE S/P/B 100 98 - 107 MMOL/L 05/05/2019 12:35 PM CDT [facility] CO2 29.0 21.0 - 32.0 MMOL/L 05/05/2019 12:35 PM CDT [facility] GLUCOSE 135(H) 74 - 106 MG/DL 05/05/2019 12:35 PM CDT [facility] BUN 27(H) 7 - 18 MG/DL 05/05/2019 12:35 PM CDT [facility] CREATININE S/P/B 1.25 0.70 - 1.30 MG/DL 05/05/2019 12:35 PM CDT [facility] CALCIUM S/P/B 9.3 8.5 - 10.1 MG/DL 05/05/2019 12:35 PM CDT [facility] BILIRUBIN TOTAL S/P/B 1.0 0.2 - 1.0 MG/DL 05/05/2019 12:35 PM CDT [facility] ALKALINE PHOSPHATASE S/P/B 95 45 - 115 U/L 05/05/2019 12:35 PM [facility] AST 21 15 - 37 U/L 05/05/2019 12:35 PM [facility] ALT 44 16 - 61 U/L 05/05/2019 12:35 PM [facility] TOTAL PROTEIN S/P/B 8.2 6.4 - 8.2 G/DL 05/05/2019 12:35 PM [facility] ALBUMIN S/P/B 3.3(L) 3.4 - 5.0 G/DL 05/05/2019 12:35 PM [facility] ANION GAP 4.0(L) 5.0 - 15.0 MMOL/L 05/05/2019 12:35 PM [facility] Comment:REFERENCE RANGE NOT ESTABLISHED OSMOLALITY (CALC) 283 MOSM/KG 05/05/2019 12:35 PM [facility] Comment:REFERENCE RANGE NOT ESTABLISHED EGFR NON-AFR. AMER. 60(L) >90 ML/MIN/1 .73 M2 05/05/2019 12:35 PM [facility] EGFR AFR. AMER. 70(L) >90 ML/MIN/1 .73 M2 05/05/2019 12:35 PM [facility] GFR NOTES THE ESTIMATED GFR IS CALCULATED USING THE 2009 CKD-EPI EQUATION. THE FOLLOWING CATEGORIES FOR GRADING RENAL FUNCTION ARE RECOMMENDED BY THE INTERNATIONAL SOCIETY OF NEPHROLOGY (KDIGO 2012 CLINICAL PRACTICE GUIDELINE). 05/05/2019 12:35 PM [facility] Comment: G1,NORMAL OR HIGH: >89 ml/min/1.73 m2 G2,MILDLY DECREASED: 60-89 ml/min/1.73 m2 G3A,MILDLY TO MODERATELY DECREASED: 45-59 ml/min/1.73 m2 G3B,MODERATELY TO SEVERELY DECREASED: 30-44 ml/min/1.73 m2 G4,SEVERELY DECREASED: 15-29 ml/min/1.73 m2 G5,KIDNEY FAILURE: <15 ml/min/1.73 m2 05/05/2019 11:5 9 AM CDT STERLING Chance APRN LABORATORY Final Result Performing Organization Address [facility] Co de Phone Number [facility] [address] [place] [address], [id number] * (ABNORMAL) PRO-BRAIN NATRIURETIC PEPTIDE (05/05/2019 11:59 AM CDT) PRO-B TYPE NATRIURETIC PEPTIDE 470(H) <125 PG/ML 05/05/2019 12:35 PM CDT [facility] Comment: AGE INDEPENDENT: <300 [...] APRN LABORATORY Final Result Performing Organization Address [facility] de Phone Number [facility] [address] [place] [address], [id number] * (ABNORMAL) PROTHROMBIN TIME, VENOUS (05/05/2019 11:59 AM CDT) PROTIME 26.5(H) 11.6 - 14.3 SEC 05/05/2019 12:16 PM CDT [facility] INR 2.5(H) 0.9 - 1.1 05/05/2019 12:16 PM CDT [facility] 05/05/2019 11:5 9 AM CDT Sharmila Davis APRN, COLD STORAGE SUPERVISOR-C LABORATORY Final Result [facility] [address] [place] [address], [id number] documented in this encounter Visit Diagnoses Diagnosis Current use of half-way anticoagulation Encounter for long-term (current) use of anticoagulants Shortness of breath documented in this encounter Care Teams Pension Agent Relationship Specialty Start Date End Date Megan Infante MD [address] [facility] [place] [address] PCP - General FAMILY PRACTICE 04/06/16 Piyush Pandey MD [place] Periodontal Assistant CARDIOVASCULAR DISEASE 04/06/16 12/28/23 Sharmila Davis APRN, COLD STORAGE SUPERVISOR-C [address] [address] NURSE PRACTITIONER 01/04/17 04/03/24 Linda Block MD [address] [facility] [address] [address] [place] Periodontal Assistant CLINICAL CARDIAC ELECTROPHYSIOLOGY 02/08/17 04/12/23 Jeff Grace MD [address] [facility] [address] [place] [address] Consulting Physician INTERNAL MEDICINE 02/20/19 6 3 documented as of this encounter
--- OUTSIDE RECORDS SUMMARY | 2024-09-03 20:43 | XMS_ITS | Encounter Summary ---
Author Organization [facility] Address [address] [place] [address]. [place] [address] [place] [address] Care Team Providers Care Java Application Engineer Name Role Phone Piyush Pandey MD Unavailable Unavailabl e Megan Infante MD Primary Care Provider [phone] Sharmila Davis APRN, CHEMICAL ENGRAVER-C Unavailable [phone] Linda Block MD Unavailable [phone] Jeff Grace MD Unavailable Zaki Ortiz MD Unavailable [phone] Encounter Details Date Type Department Care Team [...] COVID-19? No / Unsure 09/07/2020 8:31 AM PHOTOSTATIC COPY MAKER documented as of this encounter Plan of Treatment Upcoming Encounters Date Type Department Care Team (Late st Contact Info) Description 09/25/2024 2:00 PM PHOTOSTATIC COPY MAKER Appointment [facility] [address] [place] [address] Zayra Powell, CLINICAL SALES CONSULTANT [address] [place] [address] 10/16/2024 3:30 PM PHOTOSTATIC COPY MAKER [facility] [address] [place] [address] Brit Gonzáles MD [address] [place], [place] [phone] documented as of this encounter Visit Diagnoses Not on filedocumented in this encounter Additional Health Concerns Infection Onset Date Last Indicated Resolved Time COVID-19 Rule Out 09/07/2020 09/07/2020 09/08/2020 5:52 PM PHOTOSTATIC COPY MAKER documented as of this encounter Care Teams Java Application Engineer Relationship Specialty Start Date End Date Megan Infante MD [address] [place] [address] PCP - General FAMILY PRACTICE 04/06/16 Piyush Pandey MD [place] Lumber Stacker Operator CARDIOVASCULAR DISEASE 04/06/16 12/28/23 Sharmila Davis, INSTRUCTOR PSYCHIATRIC AIDE, CHEMICAL ENGRAVER-C [address] [facility] [address] [place] [address] NURSE PRACTITIONER 01/04/17 04/03/24 Linda Block MD [address] [facility] [address] [place] [address] [place] Lumber Stacker Operator CLINICAL CARDIAC ELECTROPHYSIOLOGY 02/08/17 04/12/23 Jeff Grace MD [address] [facility] 47 [place] [address] Consulting Physician INTERNAL MEDICINE 02/20/19 3 Zaki Ortiz MD [address] [place] [address] Consulting Physician PULMONARY DISEASE 07/12/19 documented as of this encounter
--- OUTSIDE RECORDS SUMMARY | 2024-09-03 20:43 | XMS_ITS | Encounter Summary ---
Author Organization [facility] Address [address] [place] [address]. [place] [address] [place] [address] Care Team Providers Care Plate And Weld Inspector Name Role Phone Piyush Pandey MD Unavailable Unavailabl e Megan Infante MD Primary Care Provider [phone] Sharmila Davis APRN, HEALTH FACILITIES SURVEYOR-C Unavailable [phone] Linda Block MD Unavailable [phone] Jeff Grace MD Unavailable Zaki Ortiz MD Unavailable [phone] Encounter Details Date Type Department Care Team [...] COVID-19? No / Unsure 09/10/2020 7:25 AM MASK DESIGNER documented as of this encounter Plan of Treatment Upcoming Encounters Date Type Department Care Team (Late st Contact Info) Description 09/25/2024 2:00 PM MASK DESIGNER Appointment [facility] [address] [place] [address] Zayra Powell, [facility] [address] [place] [address] 10/16/2024 3:30 PM MASK DESIGNER [facility] [address] [place] [phone] Brit Gonzáles MD [address] [place], [place] [address] documented as of this encounter Visit Diagnoses Not on filedocumented in this encounter Care Teams Plate And Weld Inspector Relationship Specialty Start Date End Date Megan Infante MD [address] [place] [address] PCP - General FAMILY PRACTICE 04/06/16 Piyush Pandey MD [place] Information Management Specialist CARDIOVASCULAR DISEASE 04/06/16 12/28/23 Sharmila Davis, FUNERAL SERVICE LICENSEE, HEALTH FACILITIES SURVEYOR-C [address] [facility] [address] [place] [address] NURSE PRACTITIONER 01/04/17 04/03/24 Linda Block MD [address] [facility] [address] [place] [address] [place] Information Management Specialist CLINICAL CARDIAC ELECTROPHYSIOLOGY 02/08/17 04/12/23 Jeff Grace MD 6[address] [facility] 47 [place] [address] Consulting Physician INTERNAL MEDICINE 02/20/19 6 3 Zaki Ortiz MD [address] [facility] [address] [place] [address] Consulting Physician PULMONARY DISEASE 07/12/19 documented as of this encounter
--- OUTSIDE RECORDS SUMMARY | 2024-09-03 20:43 | XMS_ITS | Encounter Summary ---
Author Organization [facility] Address [facility] [place] [address] [place] [address] Care Team Providers Care Packing And Final Assembly Supervisor Name Role Phone Piyush Pandey MD Unavailable Unavailabl e Megan Infante MD Primary Care Provider [phone] Sharmila Davis APRN, EXTRUSION DIE COORDINATOR-C Unavailable [phone] Linda Block MD Unavailable [phone] Jeff Grace MD Unavailable Zaki Ortiz MD Unavailable [phone] Encounter Details Date Type Department Care [...] COVID-19? Unable to assess 06/24/2020 11:52 AM TRADE MANAGER documented as of this encounter Plan of Treatment Upcoming Encounters Date Type Department Care Team (Late st Contact Info) Description 09/25/2024 2:00 PM TRADE MANAGER Appointment [facility] [address] [place] [address] Zayra Powell, [facility] [address] [place] [address] 10/16/2024 3:30 PM TRADE MANAGER Office Visit [facility] [address] [place] [phone] Brit Gonzáles MD [address] [place], [place] [phone] documented as of this encounter Visit Diagnoses Not on filedocumented in this encounter Care Teams Packing And Final Assembly Supervisor Relationship Specialty Start Date End Date Megan Infante MD [address] [place] [address] PCP - General FAMILY PRACTICE 04/06/16 Piyush Pandey MD [place] Arabic Translator CARDIOVASCULAR DISEASE 04/06/16 12/28/23 Sharmila Davis APRN, EXTRUSION DIE COORDINATOR-C [address] [phone] NURSE PRACTITIONER 01/04/17 04/03/24 Linda Block MD [address] [facility] [address] [phone] [place] Arabic Translator CLINICAL CARDIAC ELECTROPHYSIOLOGY 02/08/17 04/12/23 Jeff Grace MD 619 [facility] [address] [phone] Consulting Physician INTERNAL MEDICINE 02/20/19 3 Zaki Ortiz MD 619 [facility] [address] [phone] Consulting Physician PULMONARY DISEASE 07/12/19 documented as of this encounter
--- OUTSIDE RECORDS SUMMARY | 2024-09-03 20:43 | XMS_ITS | Encounter Summary ---
Author Organization [facility] Address [facility] [place] [address] [place] [address] Care Team Providers Care Job Coach Name Role Phone Piyush Pandey MD Unavailable Unavailabl e Megan Infante MD Primary Care Provider [phone] Sharmila Davis APRN FIRST RESPONDER-C Unavailable Linda Block MD Unavailable [phone] Jeff Grace MD Unavailable Zaki Ortiz MD Unavailable [phone] Reason for Visit * Auth/Cert Specialty Diagnoses / Procedures Referred By Yung sequeira Referred To Contact Diagnoses Dolan's esophagus, dysphagia Procedures EGD WITH DILAT STRICTURE Referral ID Status Reason Start Date Expiration Date Visits Re quested Visits Authorized [id number] 1 1 Encounter Details Date Type Department Care Team (Late st Contact Info) Description 03/05/2020 12:05 PM CDT - 03/05/2020 12:[address] [facility] [place] [address] [place] [id number] Gloria Navarro MD [address] [place] [id number] EGD with biopsies and dilation (44, [...] Care Everywhere. * Dolan's Esophagus Discharge Instructions ([place]sh) * Gastritis Discharge Instructions (Welsh) * Ulcer and Gastritis Diet (Welsh) * Upper GI Endoscopy Discharge Instructions (W[place]sh) * Monitored Anesthesia Care ([place]) documented in this encounter Medications at [...] Contact Info) Description 09/25/2024 2:00 PM ASSISTANT PLANT CONTROL OPERATOR [facility]ointment [facility] [address] [place] [id number] Zayra Powell, [facility] [address] [place] [address] 10/16/2024 3:30 PM ASSISTANT PLANT CONTROL OPERATOR Office Visit [facility] [address] [place] [id number] Brit Gonzáles MD 619 [place] [address] documented as of this encounter Procedures Procedure [...] DESCRIPTION GASTRIC BIOPSY 03/05/2020 12:35 PM CDT [facility] SPECIAL REQUESTS NO SPECIAL REQUEST 03/05/2020 12:35 PM CDT [facility] DIRECT EXAM PRESUMPTIVE NEGATIVE FOR H. PYLORI 03/05/2020 4:55 PM CDT [facility] Tissue specimen (specimen) GASTRIC BIOPSY SPECIMEN / Unknown 03/05/2020 12:24 PM CDT us Gloria Navarro MD MICROBIOLOGY - GENERAL ORDERA BLES Final Result [facility] [address] [place] [address], * Pathology (03/05/2020 12:00 AM CDT) PATHOLOGY [facility] ? Department of Laboratory Medicine ?[address] [facility] ?[place] [address] ? , extension [phone] ? Pathology Report ? Surgical Pathology Report Name: OBIE SIMS ?Specimen #: [id number] Age: 12 1955 (Age: 64) ? Location: [facility] Sex: M ?Procedure Date: 03/05/2020 Hospital #: [id number] ?Date Received: 03/06/2020 Date Reported: 03/07/2020 Provider: [...] Electronically Signed Out ? Michael Shetty M.D. [facility] Tissue specimen (specimen) STOMACH STRUCTURE / Unknown 03/05/2020 12:24 PM CDT Tissue specimen (specimen) ESOPHAGEAL STRUCTURE / Unknown 03/05/2020 12:26 PM CDT Gloria Navarro MD PATHOLOGY/CYTOLOGY ORDERABLES Final Result [facility] [address] [place] [address], [id number] documented in this encounter Visit Diagnoses Not [...] PACU documented in this encounter Care Teams Job Coach Relationship Specialty Start Date End Date Megan Infante MD [address] [facility] [place] [address] PCP - General FAMILY PRACTICE 04/06/16 Piyush Pandey MD [place] Radiographer CARDIOVASCULAR DISEASE 04/06/16 12/28/23 Sharmila aDvis APRN, FIRST RESPONDER-C [address] [address] NURSE PRACTITIONER 01/04/17 04/03/24 Linda Block MD [address] [phone] [place] Radiographer CLINICAL CARDIAC ELECTROPHYSIOLOGY 02/08/17 04/12/23 Jeff Grace MD [address] [phone] Consulting Physician INTERNAL MEDICINE 02/20/19 3 Zaki Ortiz MD [address] [phone] Consulting Physician PULMONARY DISEASE 07/12/19 documented as of this encounter
--- OUTSIDE RECORDS SUMMARY | 2024-09-03 20:43 | XMS_ITS | Encounter Summary ---
Author Organization [facility] Address [facility] [place] [address] [place] [address] Care Team Providers Care Butt Welder Name Role Phone Piyush Pandey MD Unavailable Unavailabl e Megan Infante MD Primary Care Provider [phone] Sharmila Davis APRN SUPERVISOR SLEEPING BAG DEPARTMENT-C Unavailable Linda Block MD Unavailable [phone] Jeff Grace MD Unavailable Zaki Ortiz MD Unavailable [phone] Encounter Details Date Type Department Care Team (Late st Contact Info) Description 07/01/2020 Orders Only [facility] Senior System Operator [address] [place] [address] Piyush Pandey MD Social History Tobacco Use [...] COVID-19? Unable to assess 06/24/2020 11:52 AM PLISSE MACHINE OPERATOR documented as of this encounter Plan of Treatment Upcoming Encounters Date Type Department Care Team (Late st Contact Info) Description 09/25/2024 2:00 PM PLISSE MACHINE OPERATOR [facility]ointment [facility] [address] [facility] [place] [address] Andre Zayra K, PAVING CONTRACTOR [address] [facility] [place] [address] 10/16/2024 3:30 PM PLISSE MACHINE OPERATOR Office Visit [facility] [address] [place] [phone] Brit Gonzáles MD [address] [place], [place] [phone] documented as of this encounter Results * PRE-SURGICAL/PRE-PROCEDURE CORONAVIRUS (COVID 19) (07/03/2020 8:55 AM PLISSE MACHINE OPERATOR) CORONAVIRUS SARS COV 2 PCR (RESP) NOT DETECTED NOT DETECTED 07/04/2020 11:25 PM PLISSE MACHINE OPERATOR [facility] Comment: A Not Detected (negative) [...] providers and patients using the following websites: https://www.Well.com/home/Covid-19/HCP/NAAT/fact-sheet2 https://www.Well.PDV/home/Covid-19/Patients/NAAT/ fact-sheet2 This test has been authorized by the FDA under an Emergency Use Authorization (EUA) for use by authorized laboratories. Due to the current public health emergency, [facility] is receiving a high volume of samples [...] about COVID-19 can be found at the [facility] website: www.HomeLight/Covid19. Test performed at [facility] ??[phone] Director: REEMA ORDAZ DO,MPH FIRST TEST UNKNOWN 07/03/2020 8:47 AM PLISSE MACHINE OPERATOR [facility] EMPLOYED IN HEALTHCARE UNKNOWN 07/03/2020 8:47 AM PLISSE MACHINE OPERATOR [facility] SYMPTOMATIC DEFINED BY CDC UNKNOWN 07/03/2020 8:47 AM PLISSE MACHINE OPERATOR [facility] DATE OF SYMPTOM ONSET UNKNOWN 07/03/2020 8:57 AM PLISSE MACHINE OPERATOR [facility] HOSPITALIZATION STATUS NO 07/03/2020 8:47 AM PLISSE MACHINE OPERATOR [facility] PATIENT IN ICU NO 07/03/2020 8:47 AM PLISSE MACHINE OPERATOR [facility] RESIDENT OF [facility] UNKNOWN 07/03/2020 8:47 AM PLISSE MACHINE OPERATOR [facility] NOT 07/03/2020 8:57 AM PLISSE MACHINE OPERATOR [facility] PATIENT'S RACE WHITE OR 07/03/2020 8:47 AM PLISSE MACHINE OPERATOR [facility] ETHNICITY NONHISPANIC 07/03/2020 8:47 AM PLISSE MACHINE OPERATOR [facility] SOURCE (QST) NASOPHARYNGEAL SWAB 07/03/2020 8:47 AM PLISSE MACHINE OPERATOR [facility] NASOPHARYNGEAL SWAB / Unknown 07/03/2020 8:55 AM PLISSE MACHINE OPERATOR us Piyush Pandey MD MICROBIOLOGY - GENERAL CLARISSA MCARTHUR Final Result [facility] [address] [place] [address], [facility] [address] [place] [address], documented in this encounter Visit Diagnoses Diagnosis Pre-operative laboratory examination- Primary Pre-procedural laboratory examination documented in this encounter Care Teams Butt Welder Relationship Specialty Start Date End Date Megan Infante MD [address] [facility] [place] [phone] PCP - General FAMILY PRACTICE 04/06/16 Piyush Pandey MD [place] Flume Ride Operator CARDIOVASCULAR DISEASE 04/06/16 12/28/23 Sharmila Davis APRN, SUPERVISOR SLEEPING BAG DEPARTMENT-C [address] [phone] NURSE PRACTITIONER 01/04/17 04/03/24 Linda Block MD [address] [phone] [place] Flume Ride Operator CLINICAL CARDIAC ELECTROPHYSIOLOGY 02/08/17 04/12/23 Jeff Grace MD [address] [phone] Consulting Physician INTERNAL MEDICINE 02/20/19 3 Zaki Ortiz MD [address] [phone] Consulting Physician PULMONARY DISEASE 07/12/19 documented as of this encounter
--- OUTSIDE RECORDS SUMMARY | 2024-09-03 20:43 | XMS_ITS | Encounter Summary ---
Author Organization [facility] Address [facility] [place] [address] [place] [address] Care Team Providers Care It Applications Developer Name Role Phone Piyush Pandey MD Unavailable Unavailabl e Megan Infante MD Primary Care Provider [phone] Sharmila Davis APRN, NP-C Unavailable [phone] Linda Block MD Unavailable [phone] Jeff Grace MD Unavailable Zaki Ortiz MD Unavailable [phone] Reason for Referral * Imaging (Routine) - Closed Specialty Diagnoses / Procedures Referred By Contac t Referred To Contact RADIOLOGY Diagnoses Coronary artery disease involving [place] coronary artery of [place] heart without angina pectoris Chronic atrial fibrillation ([facility]/HCC HHS/HCC) S/P aortic valve replacement with bioprosthetic valve Aortic stenosis Shortness of breath Procedures XA RHC+LHC POSS Piyush Pandey MD [facility] [address] [place] [address] Phone: tel: fax: Referral ID Status Reason Start Date Expiration Date Visits Re quested Visits Authorized [id number] Closed 08/27/2020 09/27/2021 1 1 ICIAN RECRUITER Reason for Visit * Reason Onset Date Comments Schedule Procedure 08/27/2020 R/LHC Encounter Details Date Type Department Care Team (Late st Contact Info) Description 08/27/2020 Telephone [facility] [address] [place] [phone] Piyush Pandey MD Schedule Procedure (R/LHC) Social [...] hours day prior to cath. Letter mailed. ICIAN RECRUITER documented in this encounter Plan of Treatment Upcoming Encounters Date Type Department Care Team (Late st Contact Info) Description 09/25/2024 2:00 PM PHYSICIAN RECRUITER Appointment [facility] [address] [place] [address] Zayra Powell, PILOT PLANT SUPERVISOR [address] [place] [address] 10/16/2024 3:30 PM PHYSICIAN RECRUITER Office Visit [facility] [address] [address] Brit Gonzáles MD [address] [place] [address] documented as of this encounter Results * XA RHC+LHC POSS (09/10/2020 10:19 AM PHYSICIAN RECRUITER) Anatomical Region Laterality Modality Cardiac Application Support Technician 09/10/2020 9:30 AM PHYSICIAN RECRUITER us Piyush Pandey MD SECURITY INCIDENT RESPONSE SPECIALIST Final Resul t * (ABNORMAL) PROTIME/INR, VENOUS (09/07/2020 8:45 AM PHYSICIAN RECRUITER) PROTIME 25.2(H) 9.4 - 12.5 SEC 09/07/2020 9:03 AM PHYSICIAN RECRUITER [facility] INR 2.3(H) 0.9 - 1.1 09/07/2020 9:03 AM PHYSICIAN RECRUITER [facility] 09/07/2020 8:45 AM PHYSICIAN RECRUITER us Piyush Pandey MD LABORATORY Final Resul t Performing Organization Address [facility] de Phone Number [facility] [address] [place] [address], * MAGNESIUM (09/07/2020 8:45 AM PHYSICIAN RECRUITER) MAGNESIUM 2.2 1.8 - 2.4 MG/DL 09/07/2020 9:06 AM PHYSICIAN RECRUITER [facility] 09/07/2020 8:45 AM PHYSICIAN RECRUITER Piyush Pandey MD LABORATORY Final Resul t Performing Organization Address [facility] de Phone Number [facility] [address] [place] [address], * (ABNORMAL) CBC W/DIFF AUTOMATED (09/07/2020 8:45 AM PHYSICIAN RECRUITER) WBC 9.0 4.5 - 10.8 x10'3/uL 09/07/2020 8:56 AM PHYSICIAN RECRUITER [facility] RBC 4.15(L) 4.50 - 6.10 x10'6/uL 09/07/2020 8:56 AM PHYSICIAN RECRUITER [facility] HGB 11.5(L) 13.0 - 18.0 G/DL 09/07/2020 8:56 AM [facility] HCT 36.9(L) 37.0 - 52.0 % 09/07/2020 8:56 AM [facility] MCV 88.9 78.0 - 100.0 FL 09/07/2020 8:56 AM [facility] MCH 27.7 27.0 - 31.0 PG 09/07/2020 8:56 AM [facility] MCHC 31.2(L) 33.0 - 36.0 G/DL 09/07/2020 8:56 AM [facility] RDW 14.5 11.5 - 14.5 % 09/07/2020 8:56 AM [facility] PLT 188 150 - 350 x10'3/uL 09/07/2020 8:56 AM [facility] MPV 10.9(H) 7.4 - 10.4 FL 09/07/2020 8:56 AM [facility] DIFFERENTIAL COMMENT NORMAL REFERENCE RANGE NOT ESTABLISHED FOR THE PROPORTIONAL LEUKOCYTE DIFFERENTIAL. 09/07/2020 8:56 AM [facility] SEG NEUTROPHILS 71.8 % 8:56 AM [facility] LYMPHOCYTES 13.3 % 09/07/2020 8:56 AM [facility] MONOCYTES 9.5 % 09/07/2020 8:56 AM [facility] EOSINOPHILS 4.8 % 09/07/2020 8:56 AM [facility] BASOPHILS 0.4 % 09/07/2020 8:56 AM [facility] IMMATURE GRANS % 0.2 % 09/07/19 8:56 AM [facility] NRBC 0.0 % 09/07/2020 8:56 AM [facility] ABS. NEUTROPHILS 6.49 1.60 - 8.30 x10'3/uL 09/07/2020 8:56 AM [facility] ABS. LYMPHOCYTES 1.20 0.80 - 4.70 x10'3/uL 09/07/2020 8:56 AM PHYSICIAN RECRUITER [facility] ABS. MONOCYTES 0.86 0.00 - 1.50 x10'3/uL 09/07/2020 8:56 AM PHYSICIAN RECRUITER [facility] ABS. EOSINOPHILS 0.43(H) 0.00 - 0.40 x10'3/uL 09/07/2020 8:56 AM PHYSICIAN RECRUITER [facility] ABS. BASOPHILS 0.04 0.00 - 0.20 x10'3/uL 09/07/2020 8:56 AM PHYSICIAN RECRUITER [facility] ABS. IMMATURE GRANULOCYTES 0.02 0.00 - 0.03 x10'3/uL 09/07/2020 8:56 AM PHYSICIAN RECRUITER [facility] ABS. NUCLEATED RBC'S 0.00 0.00 x10'3/uL 09/07/2020 8:56 AM [facility] 09/07/2020 8:45 AM PHYSICIAN RECRUITER us Piyush Pandey MD LABORATORY Final Resul t [facility] [address] [place] [address], * (ABNORMAL) BASIC METABOLIC PANEL (09/07/2020 8:45 AM PHYSICIAN RECRUITER) SODIUM S/P/B 136 136 - 145 MMOL/L 09/07/2020 9:06 AM [facility] POTASSIUM S/P/B 4.8 3.5 - 5.1 MMOL/L 09/07/2020 9:06 AM [facility] CHLORIDE S/P/B 103 98 - 107 MMOL/L 09/07/2020 9:06 AM [facility] CO2 28.1 21.0 - 32.0 MMOL/L 09/07/2020 9:06 AM [facility] GLUCOSE 156(H) 70 - 99 MG/DL 09/07/2020 9:06 AM [facility] Comment: FASTING GLUCOSE 100 TO 125 MG/DL IS CONSISTENT WITH IMPAIRED FASTING GLUCOSE. FASTING GLUCOSE >125 MG/DL IS CONSISTENT WITH DIABETES. RANDOM GLUCOSE >200 MG/DL WITH HYPERGLYCEMIC SYMPTOMS IS CONSISTENT WITH DIABETES. PER ADA GUIDELINES BUN 20 6 - 24 MG/DL 09/07/2020 9:06 AM [facility] CREATININE S/P/B 1.38(H) 0.70 - 1.30 MG/DL 09/07/2020 9:06 AM [facility] CALCIUM S/P/B 9.3 8.4 - 10.5 MG/DL 09/07/2020 9:06 AM [facility] ANION GAP 4.9(L) 5.0 - 15.0 MMOL/L 09/07/2020 9:06 AM [facility] OSMOLALITY (CALC) 288 MOSM/KG 021 9:06 AM [facility] Comment:REFERENCE RANGE NOT ESTABLISHED EGFR NON-AFR. AMER. 53(L) >89 ML/MIN/1. 73 M2 09/07/2020 9:06 AM [facility] EGFR AFR. AMER. 61(L) >89 ML/MIN/1. 73 M2 09/07/2020 9:06 AM [facility] GFR NOTES GFR REFERENCE S: 09/07/2020 9:06 AM [facility] Comment: THE ESTIMATED GFR [...] FAILURE: <15 ml/min/1.73 m2 09/07/2020 8:45 AM PHYSICIAN RECRUITER us Piyush Pandey MD LABORATORY Final Resul t [facility] [address] [place] [address], documented in this encounter Visit Diagnoses Diagnosis Coronary artery disease involving [place] coronary artery of [place] heart without angina pectoris- Primary Chronic atrial fibrillation ([facility]/HCC HHS/HCC) Atrial fibrillation S/P aortic valve replacement with bioprosthetic valve Heart valve replaced by other means Aortic stenosis Aortic valve disorders Shortness of breath documented in this encounter Care Teams It Applications Developer Relationship Specialty Start Date End Date Megan Infante MD [address] [facility] [place] [phone] PCP - General FAMILY PRACTICE 04/06/16 Piyush Pandey MD [place] Chemical Librarian CARDIOVASCULAR DISEASE 04/06/16 12/28/23 Sharmila Davis APRN, PROFESSOR OF VOICE-C [address] [address] NURSE PRACTITIONER 01/04/17 04/03/24 Linda Block MD [address] [phone] [place] Chemical Librarian CLINICAL CARDIAC ELECTROPHYSIOLOGY 02/08/17 04/12/23 Jeff Grace MD [address] [facility] [address] [place] [address] Consulting Physician INTERNAL MEDICINE 02/20/19 3 Zaki Ortiz MD [address] [facility] [address] [phone] Consulting Physician PULMONARY DISEASE 07/12/19 documented as of this encounter
--- OUTSIDE RECORDS SUMMARY | 2024-09-03 20:43 | XMS_ITS | Encounter Summary ---
Author Organization [facility] Address [facility] [place] [address] [place] [address] Care Team Providers Care Embryology Professor Name Role Phone Piyush Pandey MD Unavailable Unavailabl e Megan Infante MD Primary Care Provider [phone] Sharmila Davis APRN, CUSTOMER SUPPORT ADVISOR-C Unavailable Linda Block MD Unavailable [phone] Jeff Grace MD Unavailable Zaki Ortiz MD Unavailable [phone] Encounter Details Date Type Department Care Team (Late Contact Info) Description 09/06/2019 Orders Only [facility] [address] [facility] [place] [address] Hillary Saleh MD [address] [place] [address] Social History Tobacco Use Types [...] (Late Contact Info) Description 09/25/2024 2:[address] [facility] [address] [place] [address] Zayra Powell, WOODWORKING SHOP HAND [address] [place] [address] 10/16/2024 3:30 PM JOCKEY AGENT Office Visit [facility] [address] [place] [phone] Brit Gonzáles MD [address] [place] [address] documented as of this encounter Results * TBGOLD-TUBERCULOSIS TST CELL MEDIATED IMMUNITY (09/06/2019 1:30 PM JOCKEY AGENT) [facility] TB INTERPRETATION NEGATIVE 020 1:12 PM JOCKEY AGENT [facility] Comment:NEGATIVE: No immune response to Mycobacterium tuberculosis noted. TB1 AG MINUS NIL 0.02 IU/ML 09/08/19 1:12 PM JOCKEY AGENT [facility] TB2 AG MINUS NIL 0.01 IU/ML 09/08/19 1:12 PM JOCKEY AGENT [facility] Comment: This test was automated and its characteristics determined by the Immunology Laboratory of [facility]. Automated versions of this test have not been cleared or approved by the FDA. This laboratory is regulated under CLIA as qualified to perform high complexity testing. This test is used for clinical purposes. It should not be regarded as investigational or for research. 09/06/2019 1:30 PM JOCKEY AGENT Hillary Saleh MD LABORATORY Final Result [facility] [address] [place] [address], [id number] * FUNGAL ANTIBODY PANEL 3 (09/06/2019 1:30 PM JOCKEY AGENT) Pathologist [facility] HISTOPLASMA AB NEGATIVE NEGATIVE 09/11/2019 10:30 AM JOCKEY AGENT [facility] BLASTOMYCES AB NEGATIVE NEGATIVE 09/12/2019 2:10 PM JOCKEY AGENT [facility] COCCIDIOIDES AB NEGATIVE NEGATIVE 0 10:30 AM JOCKEY AGENT [facility] ASPERGILLUS ANTIBODY NEGATIVE NEGATIVE 09/14/2019 11:31 AM JOCKEY AGENT [facility] CRYPTOCOCCAL AG (CSF) NEGATIVE NEGATIVE 09/07/2019 1:51 PM JOCKEY AGENT [facility] 09/06/2019 1:30 PM JOCKEY AGENT Hillary Saleh MD LABORATORY Final Result [facility] [address] [place] [address], [id number] documented in this encounter Visit Diagnoses Diagnosis Ground glass opacity present on imaging of lung- Primary documented in this encounter Care Teams Embryology Professor Relationship Specialty Start Date End Date Megan Infante MD [address] [facility] [address] [place] [address] PCP - General FAMILY PRACTICE 04/06/16 Piyush Pandey MD [place] Web Worker CARDIOVASCULAR DISEASE 04/06/16 12/28/23 Sharmila Davis, NATURAL GAS TRADER, CUSTOMER SUPPORT ADVISOR-C [address] [facility] [address] [place] [address] NURSE PRACTITIONER 01/04/17 04/03/24 Linda Block MD [address] [facility] [address] [place] [address] [place] Web Worker CLINICAL CARDIAC ELECTROPHYSIOLOGY 02/08/17 04/12/23 Jeff Grace MD [address] [facility] [address] [place] [phone] Consulting Physician INTERNAL MEDICINE 02/20/19 3 Zaki Ortiz MD [address] [place] [phone] Consulting Physician PULMONARY DISEASE 07/12/19 documented as of this encounter
--- OUTSIDE RECORDS SUMMARY | 2024-09-03 20:43 | XMS_ITS | Encounter Summary ---
Author Organization [facility] Address [address] [place] [address]. [place] [address] [place] [address] Care Team Providers Care Logistics Coordinator Name Role Phone Piyush Pandey MD Unavailable Unavailabl e Megan Infante MD Primary Care Provider [phone] Sharmila Davis APRN, FORMAL WAITER/WAITRESS-C Unavailable Linda Block MD Unavailable [phone] Jeff Grace MD Unavailable Zaki Ortiz MD Unavailable [phone] Encounter Details Date Type Department Care Team (Latest Contact Info) Description 09/06/2019 1:15 PM AIRLINE CUSTOMER SERVICE AGENT - 09/06/2019 11:59 PM AIRLINE CUSTOMER SERVICE AGENT Hospital Encounter [facility] [address] [facility] [address] Hillary Saleh MD [address] [place] [address] Discharge Disposition: Home or Self [...] st Contact Info) Description 09/25/2024 2:00 PM AIRLINE CUSTOMER SERVICE AGENT Appointment [facility] [address] [place] [address] Zayra Powell, HEATING SYSTEMS INSTALLER [address] [place] [address] 10/16/2024 3:30 PM AIRLINE CUSTOMER SERVICE AGENT Office Visit [facility] [address] [place] [phone] Brit Gonzáles MD [address] [place] [address] documented as of this encounter Procedures Procedure Name Priority Date/Time Associated Diagnosis Comments FUNGAL ANTIBODY PANEL 3 Routine 09/06/2019 1:30 PM AIRLINE CUSTOMER SERVICE AGENT Ground glass opacity present on imaging of lung TBGOLD-TUBERCULOSIS TST CELL MEDIATED IMMUNITY Routine 09/06/2019 1:30 PM AIRLINE CUSTOMER SERVICE AGENT Ground glass opacity present on imaging of lung documented in this encounter Results * TBGOLD-TUBERCULOSIS TST CELL MEDIATED IMMUNITY (09/06/2019 1:30 PM AIRLINE CUSTOMER SERVICE AGENT) TB INTERPRETATION NEGATIVE 020 1:12 PM AIRLINE CUSTOMER SERVICE AGENT [facility] Comment:NEGATIVE: No immune response to Mycobacterium tuberculosis noted. TB1 AG MINUS NIL 0.02 IU/ML 09/08/19 20 1:12 PM AIRLINE CUSTOMER SERVICE AGENT [facility] TB2 AG MINUS NIL 0.01 IU/ML 09/08/19 20 1:12 PM AIRLINE CUSTOMER SERVICE AGENT [facility] Comment: This test was automated and its characteristics determined by the [facility]. Automated versions of this test have not been cleared or approved by the FDA. This laboratory is regulated under CLIA as qualified to perform high complexity testing. This test is used for clinical purposes. It should not be regarded as investigational or for research. 09/06/2019 1:30 PM AIRLINE CUSTOMER SERVICE AGENT Hillary Saleh MD LABORATORY Final Result Performing Organization Address [facility] Co de Phone Number [facility] [address] [place] [address], [phone] * FUNGAL ANTIBODY PANEL 3 (09/06/2019 1:30 PM AIRLINE CUSTOMER SERVICE AGENT) HISTOPLASMA AB NEGATIVE NEGATIVE 09/11/2019 10:30 AM AIRLINE CUSTOMER SERVICE AGENT [facility] BLASTOMYCES AB NEGATIVE NEGATIVE 09/12/2019 2:10 PM AIRLINE CUSTOMER SERVICE AGENT [facility] COCCIDIOIDES AB NEGATIVE NEGATIVE 0 10:30 AM AIRLINE CUSTOMER SERVICE AGENT [facility] ASPERGILLUS ANTIBODY NEGATIVE NEGATIVE 09/14/2019 11:31 AM AIRLINE CUSTOMER SERVICE AGENT [facility] CRYPTOCOCCAL AG (CSF) NEGATIVE NEGATIVE 09/07/2019 1:51 PM AIRLINE CUSTOMER SERVICE AGENT [facility] 09/06/2019 1:30 PM AIRLINE CUSTOMER SERVICE AGENT Hillary Saleh MD LABORATORY Final Result Performing Organization Address [facility] Co de Phone Number [facility] [address] [place] [address], [id number] documented in this encounter Visit Diagnoses Diagnosis Ground glass opacity present on imaging of lung documented in this encounter Care Teams Logistics Coordinator Relationship Specialty Start Date End Date Megan Infante MD [address] [facility] [place] [phone] PCP - General FAMILY PRACTICE 04/06/16 Piyush Pandey MD [employer] CARDIOVASCULAR DISEASE 04/06/16 12/28/23 Sharmila Davis APRN, FORMAL WAITER/WAITRESS-C [address] [facility] [address] [place] [address] NURSE PRACTITIONER 01/04/17 04/03/24 Linda Block MD [address] [place] [phone] [employer] CLINICAL CARDIAC ELECTROPHYSIOLOGY 02/08/17 04/12/23 Jeff Grace MD [address] [place] [address] Consulting Physician INTERNAL MEDICINE 02/20/19 3 Zaki Ortiz MD [address] [place] [address] Consulting Physician PULMONARY DISEASE 07/12/19 documented as of this encounter
--- OUTSIDE RECORDS SUMMARY | 2024-09-03 20:43 | XMS_ITS | Encounter Summary ---
Author Organization [facility] Address [facility] [facility] [address] [place] [address] Care Team Providers Care Director Of Market Analysis Name Role Phone Piyush Pandey MD Unavailable Unavailabl e Megan Infante MD Primary Care Provider [phone] Sharmila Davis APRN BUSINESS TECHNOLOGY ARCHITECT-C Unavailable Linda Block MD Unavailable [phone] Jeff Grace MD Unavailable Encounter Details Date Type Department Care Team (Latest Contact Info) Description 06/07/2019 3:45 PM CDT - 06/07/2019 11:59 PM CDT Hospital Encounter [facility] [address] [facility] [place] [address] Hillary Saleh MD [address] [place] [address] Discharge Disposition: Home or Self [...] st Contact Info) Description 09/25/2024 2:00 PM BULK MAIL TECHNICIAN Appointment [facility] [address] [place] [address] Zayra Powell, HEAT ENGINEERING TEACHER [address] [place] [address] 10/16/2024 3:30 PM BULK MAIL TECHNICIAN Office Visit [facility] [address] [place] [phone] Brit Gonzáles MD [address] [place] [address] documented as of this encounter Procedures Procedure [...] 190(H) <125 PG/ML 06/07/2019 4:39 PM CDT [facility] Comment: CUT POINTS ESTABLISHED BY [...] us Hillary Saleh MD LABORATORY Final Result [facility] [address] [place] [address], * FUNGAL ANTIBODY PANEL 3 (06/07/2019 4:10 PM CDT) HISTOPLASMA AB NEGATIVE NEGATIVE 06/12/2019 9:47 AM CDT [facility] BLASTOMYCES AB NEGATIVE NEGATIVE 06/13/2019 12:04 PM CDT [facility] COCCIDIOIDES AB NEGATIVE NEGATIVE 9 9:47 AM CDT [facility] ASPERGILLUS ANTIBODY NEGATIVE NEGATIVE 06/15/2019 2:49 PM CDT [facility] CRYPTOCOCCAL AG (CSF) NEGATIVE NEGATIVE 06/08/2019 2:46 PM CDT [facility] 06/07/2019 4:10 PM CDT Hillary Saleh MD LABORATORY Final Result [facility] [address] [place] [address], [place] [phone] [id number] * ANGIOTENSIN I ENZYME SERUM (06/07/2019 4:10 PM CDT) STEVIE S/P/B 25 9 - 67 U/L 06/12/2019 5:16 AM CDT [facility] Comment: Test Performed by [facility], [facility], [address] [place] [address] Bill Blackmon M.D., Ph.D., Director of Laboratories , [place] [id number] 06/07/2019 4:10 PM CDT Hillary Saleh MD LABORATORY Final Result [facility] [address] [place] [address], [place] [phone] documented in this encounter Visit Diagnoses Diagnosis Obstructive chronic bronchitis without exacerbation (CMS/HCC HHS/HCC) Obstructive chronic bronchitis without exacerbation Lung mass Swelling, mass, or lump in chest documented in this encounter Care Teams Director Of Market Analysis Relationship Specialty Start Date End Date Megan Infante MD [address] [facility] [place] [phone] PCP - General FAMILY PRACTICE 04/06/16 Piyush Pandey MD [place] [employer] Supervisor CARDIOVASCULAR DISEASE 04/06/16 12/28/23 Sharmila Davis, RATTAN WORKER, BUSINESS TECHNOLOGY ARCHITECT-C [address] [facility] [address] [place] [address] NURSE PRACTITIONER 01/04/17 04/03/24 Linda Block MD [address] [facility] [address] [phone] [place] Welfare Supervisor CLINICAL CARDIAC ELECTROPHYSIOLOGY 02/08/17 04/12/23 Jeff Grace MD [address] [facility] [address] [place] [address] Consulting Physician INTERNAL MEDICINE 02/20/19 3 documented as of this encounter
--- OUTSIDE RECORDS SUMMARY | 2024-09-03 20:43 | XMS_ITS | Encounter Summary ---
Author Organization [facility] Address [address] [place] [address]. [place] [address] [place] [address] Care Team Providers Care Production Controller Name Role Phone Piyush Pandey MD Unavailable Unavailabl e Megan Infante MD Primary Care Provider [phone] Sharmila Davis APRN ELECTRIC BRAIN WAVE EQUIPMENT MECHANIC-C Unavailable Linda Block MD Unavailable [phone] Jeff Grace MD Unavailable Zaki Ortiz MD Unavailable [phone] Reason for Visit * Auth/Cert Specialty Diagnoses / Procedures Referred By Yung sequeira Referred To Contact Diagnoses Dolan's esophagus, dysphagia Procedures EGD WITH DILAT STRICTURE Referral ID Status Reason Start Date Expiration Date Visits Re quested Visits Authorized [id number] 1 1 Encounter Details Date Type Department Care Team (Late st Contact Info) Description 03/05/2020 10:03 AM CDT - 03/05/2020 1:20 PM T Hospital Encounter [facility] [address] [address] Gloria Navarro MD [address] [place] [address] Discharge Disposition: Home [...] Care Everywhere. * Dolan's Esophagus Discharge Instructions (Singaporean) * Gastritis Discharge Instructions (Singaporean) * Ulcer and Gastritis Diet (Singaporean) * Upper GI Endoscopy Discharge Instructions (Singaporean) * Monitored Anesthesia Care (Singaporean) documented in this encounter Medications at Time [...] Info) Description 09/25/2024 2:00 PM AGRICULTURAL EQUIPMENT DESIGN ENGINEER Appointment [facility] [address] [place] [address] Zayra Powell, MANAGER ANIMAL [address] [place] [address] 10/16/2024 3:30 PM AGRICULTURAL EQUIPMENT DESIGN ENGINEER Office Visit [facility] [address] [place] [phone] Brit Gonzáles MD [address] [place] [address] documented as of this encounter Procedures Procedure [...] DESCRIPTION GASTRIC BIOPSY 03/05/2020 12:35 PM CDT [facility] SPECIAL REQUESTS NO SPECIAL REQUEST 03/05/2020 12:35 PM CDT [facility] DIRECT EXAM PRESUMPTIVE NEGATIVE FOR H. PYLORI 03/05/2020 4:55 PM CDT [facility] Tissue specimen (specimen) GASTRIC BIOPSY SPECIMEN / Unknown 03/05/2020 12:24 PM CDT us Gloria Navarro MD MICROBIOLOGY - GENERAL ORDERA BLES Final Result [facility] [address] [place] [address], * Pathology (03/05/2020 12:00 AM CDT) PATHOLOGY [facility] ? Department of Laboratory Medicine ?[address] [facility] ?[place] [address] ? , extension [phone] ? Pathology Report ? Surgical Pathology Report Name: OBIE SIMS ?Specimen #: [id number] Age: 12 1955 (Age: 64) ? [facility] ?Procedure Date: 03/05/2020 Hospital #: [id number] ?Date Received: 03/06/2020 Date Reported: 03/07/2020 Provider: [...] Electronically Signed Out ? Michael Shetty M.D. [facility] Tissue specimen (specimen) STOMACH STRUCTURE / Unknown 03/05/2020 12:24 PM CDT Tissue specimen (specimen) ESOPHAGEAL STRUCTURE / Unknown 03/05/2020 12:26 PM CDT Gloria Navarro MD PATHOLOGY/CYTOLOGY ORDERABLES Final Result [facility] [address] [place] [address], [id number] documented in this encounter Visit Diagnoses Not [...] PACU documented in this encounter Care Teams Production Controller Relationship Specialty Start Date End Date Megan Infante MD [address] [facility] [place] [address] PCP - General FAMILY PRACTICE 04/06/16 Piyush Pandey MD [employer] Officer CARDIOVASCULAR DISEASE 04/06/16 12/28/23 Sharmila Davis APRN, ELECTRIC BRAIN WAVE EQUIPMENT MECHANIC-C [address] [phone] NURSE PRACTITIONER 01/04/17 04/03/24 Linda Block MD [address] [phone] [employer] Officer CLINICAL CARDIAC ELECTROPHYSIOLOGY 02/08/17 04/12/23 Jeff Grace MD [address] [phone] Consulting Physician INTERNAL MEDICINE 02/20/19 3 Zaki Ortiz MD [address] [phone] Consulting Physician PULMONARY DISEASE 07/12/19 documented as of this encounter
--- OUTSIDE RECORDS SUMMARY | 2024-09-03 20:43 | XMS_ITS | Encounter Summary ---
Author Organization [facility] Address [address] [place] [address]. [place] [address] [place] [address] Care Team Providers Care Fbi Field Agent Name Role Phone Piyush Pandey MD Unavailable Unavailabl e Megan Infante MD Primary Care Provider [phone] Sharmila Davis APRN, NP-C Unavailable Linda Block MD Unavailable [phone] Jeff Grace MD Unavailable Zaki Ortiz MD Unavailable [phone] Reason for Visit * Reason Onset Date Comments Neurologic Problem 07/03/2020 Encounter Details Date Type Department Care Team (Late st Contact Info) Description 07/03/2020 Telephone [facility] [address] [place] [phone] Piyush Pandey MD Neurologic Problem Social History [...] COVID-19? No / Unsure 07/03/2020 8:36 AM SERVICE TRAINER documented as of this encounter Progress Notes * Megan Lay RN - 07/10/2020 2:59 PM CST Returned call to Dr. Infante's office. LMTC back. See other encounter. ICE TRAINER * Bethanie Lay - 07/10/2020 11:[address] Infante's office called regarding medication orders. Please advise. ICE TRAINER * Megan Lay RN - 07/03/2020 4:37 PM CST Received call from YUNI Cox at [facility]. Pt presented with TIA sxs - dysarthria, AMS, slurred speech, and leg leg weakness (possibly chronic?). NIH of 3. 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 Pt has been holding Coumadin starting Wednesday for cath on Wednesday. Dr. Pandey discussed with ER physician. Will cancel cath for Wednesday. ICE TRAINER ICE TRAINER documented in this encounter Plan of Treatment Upcoming Encounters Date Type Department Care Team (Late st Contact Info) Description 09/25/2024 2:00 PM SERVICE TRAINER Appointment [facility] [address] [place] [address] Zayra Powell, TRADING SPECIALIST [address] [place] [address] 10/16/2024 3:30 PM SERVICE TRAINER Office Visit [facility] [address] [place] [phone] Brit Gonzáles MD [address] [place] [address] documented as of this encounter Visit Diagnoses Not on filedocumented in this encounter Additional Health Concerns Infection Onset Date Last Indicated Resolved Time COVID-19 Rule Out 07/03/2020 07/03/2020 07/04/2020 11:25 PM SERVICE TRAINER documented as of this encounter Care Teams Fbi Field Agent Relationship Specialty Start Date End Date Megan Infante MD [address] [facility] [place] [address] PCP - General FAMILY PRACTICE 04/06/16 Piyush Pandey MD [employer] Application Engineer CARDIOVASCULAR DISEASE 04/06/16 12/28/23 Sharmila Davis APRN, STRAIGHTEDGE MAN-C [address] [facility] [address] [phone] NURSE PRACTITIONER 01/04/17 04/03/24 Linda Block MD [address] [phone] [employer] Application Engineer CLINICAL CARDIAC ELECTROPHYSIOLOGY 02/08/17 04/12/23 Jeff Grace MD [address] [phone] Consulting Physician INTERNAL MEDICINE 02/20/19 3 Zaki Ortiz MD [address] [phone] Consulting Physician PULMONARY DISEASE 07/12/19 documented as of this encounter
--- OUTSIDE RECORDS SUMMARY | 2024-09-03 20:43 | XMS_ITS | Encounter Summary ---
Author Organization [facility] Address [address] [place] [address]. [place] [address] [place] [address] Care Team Providers Care Biscuitware Brusher Name Role Phone Piyush Pandey MD Unavailable Unavailabl e Megan Infante MD Primary Care Provider [phone] Sharmila Davis APRN RN HEDIS-C Unavailable Linda Block MD Unavailable [phone] Jeff Grace MD Unavailable Zaki Ortiz MD Unavailable [phone] Encounter Details Date Type Department Care Team (Latest Contact Info) Description 09/07/2020 8:32 AM HAM STRINGER - 09/07/2020 11:59 PM HAM STRINGER Hospital Encounter [facility] [address] [facility] [place] [address] Piyush Pandey MD Discharge Disposition: Home or [...] COVID-19? No / Unsure 09/07/2020 8:31 AM HAM STRINGER documented as of this encounter Medications at [...] Contact Info) Description 09/25/2024 2:00 PM HAM STRINGER [address]ointment 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 Chronic atrial fibrillation ([facility]/HCC HHS/HCC) S/P aortic valve replacement with bioprosthetic valve Aortic stenosis Shortness of breath BASIC METABOLIC PANEL Routine 09/07/2020 8:45 AM HAM STRINGER 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 Chronic atrial fibrillation (CMS/HCC HHS/HCC) S/P aortic valve replacement with bioprosthetic valve Aortic stenosis Shortness of breath CBC W/DIFF AUTOMATED Routine 09/07/2020 8:45 AM HAM STRINGER 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 Chronic atrial fibrillation (CMS/HCC HHS/HCC) S/P aortic valve replacement with bioprosthetic valve Aortic stenosis Shortness of breath MAGNESIUM Routine 09/07/2020 8:45 AM HAM STRINGER 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 Chronic atrial fibrillation (CMS/HCC HHS/HCC) S/P aortic valve replacement with bioprosthetic valve Aortic stenosis Shortness of breath CORONAVIRUS (COVID 19) Routine 09/07/2020 8:40 AM HAM STRINGER Pre-operative laboratory examination documented in this encounter Results * (ABNORMAL) PROTIME/INR, VENOUS (09/07/2020 8:45 AM HAM STRINGER) PROTIME 25.2(H) 9.4 - 12.5 SEC 09/07/2020 9:03 AM HAM STRINGER [facility] INR 2.3(H) 0.9 - 1.1 09/07/2020 9:03 AM HAM STRINGER [facility] 09/07/2020 8:45 AM HAM STRINGER Piyush Pandey MD LABORATORY Final Resul t Performing Organization Address [facility]/ZIP Co de Phone Number [facility] [address] [place] [address], * MAGNESIUM (09/07/2020 8:45 AM HAM STRINGER) Pathologist [facility] MAGNESIUM 2.2 1.8 - 2.4 MG/DL 09/07/2020 9:06 AM HAM STRINGER [facility] 09/07/2020 8:45 AM HAM STRINGER Piyush Pandey MD LABORATORY Final Resul t Performing Organization Address [facility]/ZIP Co de Phone Number [facility] [address] [place] [address], * (ABNORMAL) CBC W/DIFF AUTOMATED (09/07/2020 8:45 AM HAM STRINGER) WBC 9.0 4.5 - 10.8 x10'3/uL 09/07/2020 8:56 AM HAM STRINGER [facility] RBC 4.15(L) 4.50 - 6.10 x10'6/uL 09/07/2020 8:56 AM HAM STRINGER [facility] HGB 11.5(L) 13.0 - 18.0 G/DL 09/07/2020 8:56 AM [facility] HCT 36.9(L) 37.0 - 52.0 % 09/07/2020 8:56 AM [facility] MCV 88.9 78.0 - 100.0 FL 09/07/2020 8:56 AM [facility] MCH 27.7 27.0 - 31.0 PG 09/07/2020 8:56 AM [facility] MCHC 31.2(L) 33.0 - 36.0 G/DL 09/07/2020 8:56 AM [facility] RDW 14.5 11.5 - 14.5 % 09/07/2020 8:56 AM [facility] PLT 188 150 - 350 x10'3/uL 09/07/2020 8:56 AM [facility] MPV 10.9(H) 7.4 - 10.4 FL 09/07/2020 8:56 AM [facility] DIFFERENTIAL COMMENT NORMAL REFERENCE RANGE NOT ESTABLISHED FOR THE PROPORTIONAL LEUKOCYTE DIFFERENTIAL. 09/07/2020 8:56 AM [facility] SEG NEUTROPHILS 71.8 % 8:56 AM [facility] LYMPHOCYTES 13.3 % 09/07/2020 8:56 AM [facility] MONOCYTES 9.5 % 09/07/2020 8:56 AM [facility] EOSINOPHILS 4.8 % 09/07/2020 8:56 AM [facility] BASOPHILS 0.4 % 09/07/2020 8:56 AM [facility] IMMATURE GRANS % 0.2 % 09/07/19 8:56 AM [facility] NRBC 0.0 % 09/07/2020 8:56 AM [facility] ABS. NEUTROPHILS 6.49 1.60 - 8.30 x10'3/uL 09/07/2020 8:56 AM [facility] ABS. LYMPHOCYTES 1.20 0.80 - 4.70 x10'3/uL 09/07/2020 8:56 AM [facility] ABS. MONOCYTES 0.86 0.00 - 1.50 x10'3/uL 09/07/2020 8:56 AM HAM STRINGER [facility] ABS. EOSINOPHILS 0.43(H) 0.00 - 0.40 x10'3/uL 09/07/2020 8:56 AM HAM STRINGER [facility] ABS. BASOPHILS 0.04 0.00 - 0.20 x10'3/uL 09/07/2020 8:56 AM [facility] ABS. IMMATURE GRANULOCYTES 0.02 0.00 - 0.03 x10'3/uL 09/07/2020 8:56 AM HAM STRINGER [facility] ABS. NUCLEATED RBC'S 0.00 0.00 x10'3/uL 09/07/2020 8:56 AM [facility] 09/07/2020 8:45 AM HAM STRINGER Piyush Pandey MD LABORATORY Final Resul t [facility] [address] [place] [address], * (ABNORMAL) BASIC METABOLIC PANEL (09/07/2020 8:45 AM HAM STRINGER) SODIUM S/P/B 136 136 - 145 MMOL/L 09/07/2020 9:06 AM [facility] POTASSIUM S/P/B 4.8 3.5 - 5.1 MMOL/L 09/07/2020 9:06 AM [facility] CHLORIDE S/P/B 103 98 - 107 MMOL/L 09/07/2020 9:06 AM [facility] CO2 28.1 21.0 - 32.0 MMOL/L 09/07/2020 9:06 AM [facility] GLUCOSE 156(H) 70 - 99 MG/DL 09/07/2020 9:06 AM [facility] Comment: FASTING GLUCOSE 100 TO 125 MG/DL IS CONSISTENT WITH IMPAIRED FASTING GLUCOSE. FASTING GLUCOSE >125 MG/DL IS CONSISTENT WITH DIABETES. RANDOM GLUCOSE >200 MG/DL WITH HYPERGLYCEMIC SYMPTOMS IS CONSISTENT WITH DIABETES. PER ADA GUIDELINES BUN 20 6 - 24 MG/DL 09/07/2020 9:06 AM [facility] CREATININE S/P/B 1.38(H) 0.70 - 1.30 MG/DL 09/07/2020 9:06 AM [facility] CALCIUM S/P/B 9.3 8.4 - 10.5 MG/DL 09/07/2020 9:06 AM [facility] ANION GAP 4.9(L) 5.0 - 15.0 MMOL/L 09/07/2020 9:06 AM [facility] OSMOLALITY (CALC) 288 MOSM/KG 021 9:06 AM [facility] Comment:REFERENCE RANGE NOT ESTABLISHED EGFR NON-AFR. AMER. 53(L) >89 ML/MIN/1. 73 M2 09/07/2020 9:06 AM [facility] EGFR AFR. AMER. 61(L) >89 ML/MIN/1. 73 M2 09/07/2020 9:06 AM [facility] GFR NOTES GFR REFERENCE S: 09/07/2020 9:06 AM [facility] Comment: THE ESTIMATED GFR IS CALCULATED [...] FAILURE: <15 ml/min/1.73 m2 09/07/2020 8:45 AM HAM STRINGER us Piyush Pandey MD LABORATORY Final Resul t [facility] [address] [place] [address], * PRE-SURGICAL/PRE-PROCEDURE CORONAVIRUS (COVID 19) (09/07/2020 8:40 AM HAM STRINGER) CORONAVIRUS SARS COV 2 PCR (RESP) NOT DETECTED NOT DETECTED 09/08/2020 5:52 PM HAM STRINGER [facility] Comment: A Not Detected (negative) test [...] providers and patients using the following websites: https://www.Love Home Swap.[employer]/home/Covid-19/HCP/NAAT/fact-sheet2 https://www.[employer]/home/Covid-19/Patients/NAAT/ fact-sheet2 This test has been authorized by the FDA under an Emergency Use Authorization (EUA) for use by authorized laboratories. Due to the current public health emergency, [employer] is receiving a high volume of samples [...] about COVID-19 can be found at the [employer] website: www.Funinhand.[employer]/Covid19. Test performed at [facility] [place] [address] [place] [address] ??[phone] Director: REEMA ORDAZ DO,MPH FIRST TEST UNKNOWN 09/07/2020 8:37 AM HAM STRINGER [facility] EMPLOYED IN HEALTHCARE NO 09/07/2020 8:37 AM HAM STRINGER [facility] SYMPTOMATIC DEFINED BY CDC UNKNOWN 09/07/2020 8:37 AM HAM STRINGER [facility] DATE OF SYMPTOM ONSET UNKNOWN 09/07/2020 8:49 AM HAM STRINGER [facility] HOSPITALIZATION STATUS NO 09/07/2020 8:37 AM HAM STRINGER [facility] PATIENT IN ICU NO 09/07/2020 8:37 AM HAM STRINGER [facility] RESIDENT OF [facility] NO 09/07/2020 8:37 AM HAM STRINGER [facility] NOT 09/07/2020 8:49 AM HAM STRINGER [facility] PATIENT'S RACE WHITE OR 09/07/2020 8:37 AM HAM STRINGER [facility] ETHNICITY NONHISPANIC 09/07/2020 8:37 AM HAM STRINGER [facility] SOURCE (QST) NASOPHARYNGEAL SWAB 09/07/2020 8:37 AM HAM STRINGER [facility] NASOPHARYNGEAL SWAB / Unknown 09/07/2020 8:40 AM HAM STRINGER Piyush Pandey MD MICROBIOLOGY - GENERAL ORDE [facility] Final Result [facility] [address] [employer] (ac[employer])[place] [address], [facility] [address] documented in this encounter Visit Diagnoses Diagnosis Pre-operative laboratory examination Pre-procedural laboratory examination 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 Chronic atrial fibrillation (CMS/HCC HHS/HCC) Atrial fibrillation S/P aortic valve replacement with bioprosthetic valve Heart valve replaced by other means Aortic stenosis Aortic valve disorders Shortness of breath documented in this encounter Additional Health Concerns Infection Onset Date Last Indicated Resolved Time COVID-19 Rule Out 09/07/2020 09/07/2020 09/08/2020 5:52 PM HAM STRINGER documented as of this encounter Care Teams Biscuitware Brusher Relationship Specialty Start Date End Date Megan Infante MD [address] [place] [phone] PCP - General FAMILY PRACTICE 04/06/16 Piyush Pandey MD [place] Gym Supervisor CARDIOVASCULAR DISEASE 04/06/16 12/28/23 Sharmila Davis, CHARITY FUNDRAISER, RN HEDIS-C [address] [place] [id number] [place] [phone] NURSE PRACTITIONER 01/04/17 04/03/24 Linda Block MD [address] [address] [place] Gym Supervisor CLINICAL CARDIAC ELECTROPHYSIOLOGY 02/08/17 04/12/23 Jeff Grace MD [address] [address] Consulting Physician INTERNAL MEDICINE 02/20/19 3 Zaki Ortiz MD [address] [address] Consulting Physician PULMONARY DISEASE 07/12/19 documented as of this encounter
--- OUTSIDE RECORDS SUMMARY | 2024-09-03 20:43 | XMS_ITS | Encounter Summary ---
Author Organization [facility] Address [facility] [place] [address] [place] [address] Care Team Providers Care Mask Layout Designer Name Role Phone Piyush Pandey MD Unavailable Unavailabl e Megan Infante MD Primary Care Provider [phone] Sharmila Davis APRN, ROAD PACKER OPERATOR-C Unavailable Linda Block MD Unavailable [phone] Jeff Grace MD Unavailable Encounter Details Date Type Department Care Team (Late st Contact Info) Description 06/05/2019 Orders Only [facility] [address] [place] [address] Sharmila Davis, DANNY, ROAD PACKER OPERATOR-C [address] [facility] [address] [place] [address] Social History Tobacco Use Types [...] st Contact Info) Description 09/25/2024 2:00 PM DECKHAND ENGINEER Appointment [facility] [address] [place] [address] Zayra Powell, ASSAYER [address] [place] [address] 10/16/2024 3:30 PM DECKHAND ENGINEER Office Visit [facility] [address] [place] [phone] Brit Gonzáles MD [address] [place] [address] documented as of this encounter Procedures Procedure Name Priority Date/Time Associated Diagnosis Comments NM PHARM NUC STRESS TEST 1DAY W TRACING Routine 06/05/2019 SOB (shortness of breath) Atherosclerosis of [place] coronary artery of [place] heart, angina presence unspecified documented in this encounter Results * NM PHARM NUC STRESS TEST 1DAY (06/05/2019) Anatomical Region Laterality Modality Cardiac Nuclear Medicine us Sharmila Davis APRN, ROAD PACKER OPERATOR-C NUC MED Final Result documented in this encounter Visit Diagnoses Diagnosis SOB (shortness of breath) Shortness of breath Atherosclerosis of [place] coronary artery of [place] heart, angina presence unspecified documented in this encounter Care Teams Mask Layout Designer Relationship Specialty Start Date End Date Megan Infante MD [address] [place] [phone] PCP - General FAMILY PRACTICE 04/06/16 Piyush Pandey MD [place] Hanger CARDIOVASCULAR DISEASE 04/06/16 12/28/23 Sharmila Davis APRN, ROAD PACKER OPERATOR-C [address] [facility] [address] [place] [address] NURSE PRACTITIONER 01/04/17 04/03/24 Linda Block MD [address] [place] [address] Elton Hanger CLINICAL CARDIAC ELECTROPHYSIOLOGY 02/08/17 04/12/23 Jeff Grace MD [address] [place] [address] Consulting Physician INTERNAL MEDICINE 02/20/19 3 documented as of this encounter
--- OUTSIDE RECORDS SUMMARY | 2024-09-03 20:43 | XMS_ITS | Encounter Summary ---
Author Organization [facility] Address [address] [place] [address]. [place] [address] [place] [address] Care Team Providers Care E Commerce Web Developer Name Role Phone Piyush Pandey MD Unavailable Unavailabl e Megan Infante MD Primary Care Provider [phone] Sharmila Davis APRN SUPPLY CHAIN PROGRAM MANAGER-C Unavailable Linda Block MD Unavailable [phone] Jeff Grace MD Unavailable Zaki Ortiz MD Unavailable [phone] Encounter Details Date Type Department Care Team (Late st Contact Info) Description 03/02/2020 6:36 AM CDT - 03/02/2020 11:59 PM CDT Hospital Encounter [facility] [address] [place] [address] Kilo Navarro MD [address] [place] [address] Discharge Disposition: Home or Self [...] Contact Info) Description 09/25/2024 2:00 PM RAIL TRACK LAYER Appointment [facility] [address] [place] [address] Zayra Powell, WORK ORDER SORTING CLERK [address] [facility] [place], [place] [phone] 10/16/2024 3:30 PM RAIL TRACK LAYER Office Visit [facility] [address] [facility] [place] [address] Brit Gonzáles MD [address] [place] [address] documented as of this encounter Procedures Procedure Name Priority Date/Time Associated Diagnosis Comments CORONAVIRUS (COVID 19) Routine 03/02/2020 6:46 AM CDT Pre-operative laboratory examination documented in this encounter Results * PRE-SURGICAL/PRE-PROCEDURE CORONAVIRUS (COVID 19) (03/02/2020 6:46 AM CDT) CORONAVIRUS SARS COV 2 PCR (RESP) NOT DETECTED NOT DETECTED 03/03/2020 8:23 PM CDT [facility] Comment: A Not Detected (negative) [...] providers and patients using the following websites: https://www.WearYouWant.[employer]uplex/home/Covid-19/HCP/NAAT/fact-sheet2 https://www.[employer]You[employer]/home/Covid-19/Patients/NAAT/ fact-sheet2 This test has been authorized by the FDA under an Emergency Use Authorization (EUA) for use by authorized laboratories. Due to the current public health emergency, [employer] is receiving a high volume of samples [...] about COVID-19 can be found at the [employer] website: www.BridgePort Networks.[employer]/Covid19. Test performed at [facility] [place] [address] [place], [place] ??[phone] Director: REEMA ORDAZ DO,MPH NASOPHARYNGEAL SWAB / Unknown 03/02/2020 6:46 AM CDT Kilo Navarro MD MICROBIOLOGY - GENERAL ORDERA BLES Final Result [facility] [id number] [place] [address] documented in this encounter Visit Diagnoses Diagnosis Pre-operative laboratory examination Pre-procedural laboratory examination documented in this encounter Additional Health Concerns Infection Onset Date Last Indicated Resolved Time COVID-19 Rule Out 03/02/2020 03/02/2020 03/03/2020 8:23 PM CDT documented as of this encounter Care Teams E Commerce Web Developer Relationship Specialty Start Date End Date Megan Infante MD [address] [facility] [place] [address] PCP - General FAMILY PRACTICE 04/06/16 Piyush Pandey MD [place] Lard Bleacher CARDIOVASCULAR DISEASE 04/06/16 12/28/23 Sharmila Davis, LIDDER, SUPPLY CHAIN PROGRAM MANAGER-C [address] [facility] [address] [place] [phone] NURSE PRACTITIONER 01/04/17 04/03/24 Linda Block MD [address] [address] [place] Lard Bleacher CLINICAL CARDIAC ELECTROPHYSIOLOGY 02/08/17 04/12/23 Jeff Grace MD [address] [address] Consulting Physician INTERNAL MEDICINE 02/20/19 3 Zaki Ortiz MD [address] [phone] Consulting Physician PULMONARY DISEASE 07/12/19 documented as of this encounter
--- OUTSIDE RECORDS SUMMARY | 2024-09-03 20:43 | XMS_ITS | Encounter Summary ---
Author Organization [facility] Address [facility] [place] [address] [place] [address] Care Team Providers Care Curing Oven Attendant Name Role Phone Piyush Pandey MD Unavailable Unavailabl e Megan Infante MD Primary Care Provider [phone] Sharmila Davis APRN, COIN MACHINE MECHANIC-C Unavailable Linda Bolck MD Unavailable [phone] Jeff Grace MD Unavailable Reason for Visit * Reason Onset Date Comments Follow Up Call 05/11/2019 Encounter Details Date Type Department Care Team ([facility] st Contact Info) Description 05/11/2019 Telephone [facility] [address] [place] [address] Sharmila Davis APRN, COIN MACHINE MECHANIC-C [address] [facility] [address] [place] [address] Follow Up Call Social History [...] st Contact Info) Description 09/25/2024 2:00 PM TILTING HEAD BAND SAWYER Appointment [facility] [address] [place] [address] [place] [address] Zayra Powell, DOOR AND ARRIVAL ATTENDANT [address] [facility] [place] [address] 10/16/2024 3:30 PM TILTING HEAD BAND SAWYER Office Visit [facility] [place] [phone] Brit Gonzáles MD [address] [place] [address] documented as of this encounter Results * [...] 1.3 EGFR NON-AFR. AMER. 55 05/22/2019 Result [facility] Sharmila Davis APRN, COIN MACHINE MECHANIC-C LABORATORY Final Result documented in this encounter Visit Diagnoses Diagnosis intermediate designer use of drug- Primary Encounter for long-term (current) use of other medications documented in this encounter Care Teams Curing Oven Attendant Relationship Specialty Start Date End Date Megan Infante MD [address] [facility] [place] [address] PCP - General FAMILY PRACTICE 04/06/16 Piyush Pandey MD [place] Incident Response Analyst CARDIOVASCULAR DISEASE 04/06/16 12/28/23 Sharmila Davis APRN, COIN MACHINE MECHANIC-C [address] [facility] [address] [place] [address] NURSE PRACTITIONER 01/04/17 04/03/24 Linda Block MD [address] [facility] [facility] [address] [place] [address] [place] Incident Response Analyst CLINICAL CARDIAC ELECTROPHYSIOLOGY 02/08/17 04/12/23 Jeff Grace MD [address] [facility] [address] [place] [address] Consulting Physician INTERNAL MEDICINE 02/20/19 6 3 documented as of this encounter
--- OUTSIDE RECORDS SUMMARY | 2024-09-03 20:43 | XMS_ITS | Encounter Summary ---
Author Organization [facility] Address [facility] [place] [address] [place] [address] Care Team Providers Care Quarry Supervisor Dimension Stone Name Role Phone Piyush Pandey MD Unavailable Unavailabl e Megan Infante MD Primary Care Provider [phone] Sharmila Davis APRN, NP-C Unavailable Linda Block MD Unavailable [phone] Jeff Grace MD Unavailable Zaki Ortiz MD Unavailable [phone] Reason for Visit * Auth/Cert Specialty Diagnoses / Procedures Referred By Yung sequeira Referred To Contact Diagnoses Dolan's esophagus, dysphagia Procedures EGD WITH DILAT STRICTURE Referral ID Status Reason Start Date Expiration Date Visits Re quested Visits Authorized [id number] 1 1 Encounter Details Date Type Department Care Team (Late st Contact Info) Description 03/05/2020 12:19 PM CDT Anesthesia [place] [address] [place], [place] [address] [address] Jaya Eastman MD [address] [employer] [place] [address] Anesthesia Record Procedure Summary Procedure Name Responsible [...] st Contact Info) Description 09/25/2024 2:00 PM FREIGHT CONDUCTOR Appointment [facility] [address] [place] [id number] Zayra Powell FNP [address] [place] [id number] 10/16/2024 3:30 PM FREIGHT CONDUCTOR Office Visit [facility] [address] [place] [id number] Brit Gonzáles MD [address] [place] [address] documented as of this encounter Visit Diagnoses [...] mg documented in this encounter Care Teams Quarry Supervisor Dimension Stone Relationship Specialty Start Date End Date Megan Infante MD [address] [facility] [place] [address] PCP - General FAMILY PRACTICE 04/06/16 Piyush Pandey MD [place] Payment Manager CARDIOVASCULAR DISEASE 04/06/16 12/28/23 Sharmila Davis, TEA BAG PACKER, HYPERION DEVELOPER-C [address] [facility] [address] [place] [phone] NURSE PRACTITIONER 01/04/17 04/03/24 Linda Block MD [address] [facility] [address] [place] [phone] [place] Payment Manager CLINICAL CARDIAC ELECTROPHYSIOLOGY 02/08/17 04/12/23 Jeff Grace MD [address] [facility] [address] [place] [phone] Consulting Physician INTERNAL MEDICINE 02/20/19 3 Zaki Ortiz MD [address] [facility] [address] [address] Consulting Physician PULMONARY DISEASE 07/12/19 documented as of this encounter
--- OUTSIDE RECORDS SUMMARY | 2024-09-03 20:43 | XMS_ITS | Encounter Summary ---
Author Organization [facility] Address [address] [place] [address]. [place] [address] [place] [address] Care Team Providers Care Sand Digger Name Role Phone Piyush Pandey MD Unavailable Unavailabl e Megan Infante MD Primary Care Provider [phone] Sharmila Davis APRN, NP-C Unavailable Linda Block MD Unavailable [phone] Jeff Grace MD Unavailable Zaki Ortiz MD Unavailable [phone] Reason for Visit * Reason Onset Date Comments Medication Question 07/01/2020 Encounter Details Date Type Department Care Team (Late st Contact Info) Description 07/01/2020 Telephone [facility] ld [address] [place] [address] Piyush Pandey MD Medication Question Social History [...] COVID-19? Unable to assess 06/24/2020 11:52 AM INFORMATICS CONSULTANT documented as of this encounter Progress Notes * Theresa Manzo RN - 07/01/2020 1:42 PM CST Pt called for [place] office to ask when he is to start holding coumadin for upcoming heart cath. Chart reviewed. Noted pt to hold coumadin 5 days prior. The cath is on Wednesday.. Pt states he will hold starting today,he took it yesterday. No other questions. RMATICS CONSULTANT documented in this encounter Plan of Treatment Upcoming Encounters Date Type Department Care Team (Late st Contact Info) Description 09/25/2024 2:00 PM INFORMATICS CONSULTANT Appointment [facility] [address] [place] [address] Zayra Powell, ECOSYSTEM ECOLOGY PROFESSOR [address] [place] [address] 10/16/2024 3:30 PM INFORMATICS CONSULTANT Office Visit [facility] [address] [place] [address] Brti Gonzáles MD [address] [place] [address] documented as of this encounter Visit Diagnoses Not on filedocumented in this encounter Care Teams Sand Digger Relationship Specialty Start Date End Date Megan Infante MD [address] [place] [address] PCP - General FAMILY PRACTICE 04/06/16 Piyush Pandey MD [place] Customer Service Leader CARDIOVASCULAR DISEASE 04/06/16 12/28/23 Sharmila Davis APRN, FIRE ASSISTANT-C [address] [place] [address] [address] [place] [address] NURSE PRACTITIONER 01/04/17 04/03/24 Linda Block MD [address] [place] [address] [place] Customer Service Leader CLINICAL CARDIAC ELECTROPHYSIOLOGY 02/08/17 04/12/23 Jeff Grace MD [address] [facility] [address] [place] [address] Consulting Physician INTERNAL MEDICINE 02/20/19 3 Zaki Ortiz MD [address] [facility] [address] [place] [address] Consulting Physician PULMONARY DISEASE 07/12/19 documented as of this encounter
--- OUTSIDE RECORDS SUMMARY | 2024-09-03 20:44 | XMS_ITS | Encounter Summary ---
Author Organization [facility] Address [facility] [place] [address] [place] [address] Care Team Providers Care Astronautical Engineer Name Role Phone Piyush Pandey MD Unavailable Unavailabl Megan Leos MD Primary Care Provider [phone] Sharmila Davis APRN, INSTRUMENT CHECKER-C Unavailable Linda Block MD Unavailable [phone] Encounter Details Date Type Department Care Team (Late st Contact Info) Description 07/21/2016 Abstract [facility] [place] [address] [place] [address] Shubham Callahan MD [address] [place], [place] [address] Social History Tobacco Use Types Packs/Day Years [...] st Contact Info) Description 09/25/2024 2:00 PM FACTORY MANAGER Appointment [facility] [address] [place] [address] Zayra Powell, JETTING MACHINE OPERATOR [address] [place] [address] 10/16/2024 3:30 PM FACTORY MANAGER Office Visit [facility] [address] [place] [address] Brit Gonzáles MD [address] [place] [address] documented as of this encounter Visit Diagnoses Not on filedocumented in this encounter Care Teams Astronautical Engineer Relationship Specialty Start Date End Date Megan Infante MD [address] [place] [address] PCP - General FAMILY PRACTICE 04/06/16 Piyush Pandey MD [place] Technical Support Manager CARDIOVASCULAR DISEASE 04/06/16 12/28/23 Sharimla Davis APRN, INSTRUMENT CHECKER-C [address] [facility] [address] [place] [address] NURSE PRACTITIONER 01/04/17 04/03/24 Linda Block MD [address] [facility] [address] [place] [address] [place] Technical Support Manager CLINICAL CARDIAC ELECTROPHYSIOLOGY 02/08/17 04/12/23 documented as of this encounter
--- OUTSIDE RECORDS SUMMARY | 2024-09-03 20:44 | XMS_ITS | Encounter Summary ---
Author Organization [facility] Address [facility] [place] [address] [place] [address] Care Team Providers Care Lpn Rn Hospice Name Role Phone Piyush Pandey MD Unavailable Unavailabl e Megan Infante MD Primary Care Provider [phone] Sharmila Davis APRN, PLUG MAKING OPERATOR-C Unavailable Linda Block MD Unavailable [phone] Reason for Visit * Reason Comments Follow Up rate control- PVI/WA CA 10/23/15 Encounter Details Date Type Department Care Team (Latest Contact Info) Description 02/15/2017 12:15 PM CDT Office Visit [facility] [address] [place] [address] Linda Block MD [address] [facility] [address] [place] [address] Follow Up (rate control- PVI/WACA 10/23/15) Social [...] st Contact Info) Description 09/25/2024 2:00 PM INSEMINATION WORKER Appointment [facility] [address] [place] [address] Zayra Powell FNP [address] [place] [address] 10/16/2024 3:30 PM INSEMINATION WORKER Office Visit [facility] [address] [place] [address] Brit Gonzáles MD [address] [place] [address] documented as of this encounter Visit Diagnoses Diagnosis Permanent atrial fibrillation ([facility]/HCC [facility]/HCC)- Primary Atrial fibrillation Chronic anticoagulation Encounter for long-term (current) use of anticoagulants documented in this encounter Care Teams Lpn Rn Hospice Relationship Specialty Start Date End Date Megan Infante MD [address] [facility] [place] [address] PCP - General FAMILY PRACTICE 04/06/16 Piyush Pandey MD [place] Clock Assembler CARDIOVASCULAR DISEASE 04/06/16 12/28/23 Sharmila Davis, RUSSIAN LANGUAGE INSTRUCTOR, PLUG MAKING OPERATOR-C [address] [facility] [address] [place] [address] NURSE PRACTITIONER 01/04/17 04/03/24 Linda Block MD [address] [facility] [address] [place] [address] [place] Clock Assembler CLINICAL CARDIAC ELECTROPHYSIOLOGY 02/08/17 04/12/23 documented as of this encounter
--- OUTSIDE RECORDS SUMMARY | 2024-09-03 20:44 | XMS_ITS | Encounter Summary ---
Author Organization [facility] Address [facility]6 [place] [address] [place] [address] Care Team Providers Care Cryogenic Transport Driver Name Role Phone Amauri Pandey MD Unavailable Unavailabl e Megan Infante MD Primary Care Provider [phone] Sharmila Davis APRN TSA SCREENER-C Unavailable Linda Block MD Unavailable [phone] Jeff Grace MD Unavailable Encounter Details Date Type Department Care Team (Late st Contact Info) Description 05/05/2019 Orders Only [facility] [address] [place] [address] Amauri Pandey MD Social History Tobacco Use [...] st Contact Info) Description 09/25/2024 2:00 PM MORNING SHOW HOST Appointment [facility] [address] [place] [address] Zayra Powell, ESL TEACHER [address] [place] [address] 10/16/2024 3:30 PM MORNING SHOW HOST Office Visit [facility] [address] [place] [address] Brit Gonzáles MD [address] [place] [address] documented as of this encounter Procedures Procedure Name Priority Date/Time Associated Diagnosis Comments ELECTROCARDIOGRAM (NON MIDMARK ACQUIRED) Routine 05/05/2019 11:02 AM CDT Shortness of breath documented in this encounter Results * ELECTROCARDIOGRAM (05/05/2019 11:02 AM CDT) 05/05/2019 11:0 2 AM CDT Narrative [facility] - 05/07/2019 10:36 PM CDT ? [facility] ?[address] [place], [place] ??[address] ? Test Date: ?2019-05-05 Pat Name: ? OBIE SIMS ?Department: ? Room: ? Gender: ? Male ? Support Team Member: ?? pb : ?1955 ? Requested By: AMAURI PANDEY Order Number: [id number] ?Reading : ?? Amauri Pandey ? Measurements Intervals ?Ferney ? Rate: ? 78 ? P: ? DE: ? 0 ?QRS: ?-19 QRSD: ? 140 ?T: ?134 QT: ? 398 ? QTc: ?456 ? Interpretive Statements ATRIAL FIBRILLATION INTRAVENTRICULAR CONDUCTION DELAY CANNOT RULE OUT ANTERIOR INFARCTION, AGE UNDETERMINED ST AND T WAVE ABNORMALITY Procedure Note Amauri Pandey MD - 05/07/2019 [facility] [address] [place] [address] Test Date: 2019-05-05 Pat Name: OBIE SIMS Department: Room: Gender: Male Support Team Member: pb : 1955 Requested By: AMAURI PANDEY Order Number: [id number] Sage MD: Amauri Pandey Measurements Intervals Ferney Rate: 78 P: DE: 0 QRS: -19 QRSD: 140 T: 134 QT: 398 QTc: 456 Interpretive Statements ATRIAL FIBRILLATION INTRAVENTRICULAR CONDUCTION DELAY CANNOT RULE OUT ANTERIOR INFARCTION, AGE UNDETERMINED ST AND T WAVE ABNORMALITY Amauri Pandey MD PROCEDURES-ORDERABLE NO DEONTE RGE Final Result [facility] [address] [place] [address] documented in this encounter Visit Diagnoses Diagnosis Shortness of breath- Primary documented in this encounter Care Teams Cryogenic Transport Driver Relationship Specialty Start Date End Date Megan Infante MD [address] [facility] [place] [address] PCP - General FAMILY PRACTICE 04/06/16 Amauri Pandey MD [place] Collision Repairer CARDIOVASCULAR DISEASE 04/06/16 12/28/23 Sharmila Davis, REGIONAL MARKETING DIRECTOR, TSA SCREENER-C [address] [facility] [address] [place] [address] NURSE PRACTITIONER 01/04/17 04/03/24 Linda Block MD [address] [facility] [address] [place] [address] [place] Collision Repairer CLINICAL CARDIAC ELECTROPHYSIOLOGY 02/08/17 04/12/23 Jeff Grace MD [address] [facility] [address] [place] [address] Consulting Physician INTERNAL MEDICINE 02/20/19 3 documented as of this encounter
--- OUTSIDE RECORDS SUMMARY | 2024-09-03 20:44 | XMS_ITS | Encounter Summary ---
Author Organization [facility] Address [facility]6 [place] [address] [place] [address] Care Team Providers Care Director Inbound Sales Name Role Phone Piyush Pandey MD Unavailable Unavailabl e Megan Infante MD Primary Care Provider [phone] Sharmila Davis APRN FIRE WATCHER-C Unavailable [phone] Linda Block MD Unavailable [phone] Reason for Visit * Reason Onset Date Comments Lab Results 03/04/2017 1st attempt to r eport BMP from today. Lab Results 03/04/2017 Reached patient and reported labs from 03-04-17 Encounter Details Date Type Department Care Team (Late Contact Info) Description 03/04/2017 Telephone [facility] [address] [place] [address] Piyush Pandey MD Lab Results [...] Patient already [facility] and will follow up with PCP on the blood sugar./af * Zuleyma Christianson RN - 03/04/2017 4:26 PM CDT Call to patient and left message to return my call. Patient Labs reviewed by and Blood sugar was 483. Patient needs to see PCP to get glucose levels under control. Dr. Pandey would likehim to schedule appt. In [facility] as well./af documented in this encounter Plan of Treatment Upcoming Encounters Date Type Department Care Team (Late st Contact Info) Description 09/25/2024 2:00 PM MED PEDS Appointment [facility] [address] [facility] [place] [address] Zayra Powell, RETAIL FIELD REPRESENTATIVE [address] [place] [address] 10/16/2024 3:30 PM MED PEDS Office Visit [facility] [address] [place] [address] Brit Gonzáles MD [address] [place] [address] documented as of this encounter Visit Diagnoses Not on filedocumented in this encounter Care Teams Director Inbound Sales Relationship Specialty Start Date End Date Megan Infante MD [address] [place] [place] [address] PCP - General FAMILY PRACTICE 04/06/16 Piyush Pandey MD [place] Demonstrator [employer] Appliances CARDIOVASCULAR DISEASE 04/06/16 12/28/23 Sharmila Davis APRN, FIRE WATCHER-C [address] [facility] [address] [place] [address] NURSE PRACTITIONER 01/04/17 04/03/24 Linda Block MD [address] [facility] [address] [place] [address] [place] Demonstrator [employer]iances CLINICAL CARDIAC ELECTROPHYSIOLOGY 02/08/17 04/12/23 documented as of this encounter
--- OUTSIDE RECORDS SUMMARY | 2024-09-03 20:44 | XMS_ITS | Encounter Summary ---
Author Organization [facility] Address [facility]6 [place] [address] [place] [address] Care Team Providers Care Laundry Sorter Name Role Phone Piyuhs Pandey MD Unavailable UnavailMegan Rodriguez MD Primary Care Provider [phone] Sharmila Davis APRN, DIET ATTENDANT-C Unavailable Encounter Details Date Type Department Care Team (Late Contact Info) Description 01/05/2017 Orders Only [facility] [address] [place] [address] Hayley Gee RN Social History [...] (Late Contact Info) Description 09/25/2024 2:00 PM PREPRESS OPERATOR Appointment [facility] [address] [place] [address] Zayra Powell, ART OBJECTS SUPERVISOR [address] [place] [address] 10/16/2024 3:30 PM PREPRESS OPERATOR Office Visit [facility] [address] [place] [address] Brit Gonzáles MD [address] [place] [address] documented as of this encounter Visit Diagnoses Not on filedocumented in this encounter Care Teams Laundry Sorter Relationship Specialty Start Date End Date Megan Ifnante MD [address] [place] [address] PCP - General FAMILY PRACTICE 04/06/16 Piyush Pandey MD [place] Shuttle Route Vehicle Operator CARDIOVASCULAR DISEASE 04/06/16 12/28/23 Sharmila Davis APRN, DIET ATTENDANT-C [address] [facility] [address] [place] [address] NURSE PRACTITIONER 01/04/17 04/03/24 documented as of this encounter
--- OUTSIDE RECORDS SUMMARY | 2024-09-03 20:44 | XMS_ITS | Encounter Summary ---
Author Organization [facility] Address [address] [place] [address]. [place] [address] [place] [address] Care Team Providers Care Long Wall Shear Operator Name Role Phone Piyush Pandey MD Unavailable Unavailabl Megan Leos MD Primary Care Provider [phone] Sharmila Davis APRN ELEVATOR CONSTRUCTOR HELPER-C Unavailable Linda Block MD Unavailable [phone] Encounter Details Date Type Department Care Team [...] (Late Contact Info) Description 09/25/2024 2:[address] [facility] [address] [place] [address] Zayra Powell, NURSING SURGICAL SERVICES DIRECTOR [address] [place] [address] 10/16/2024 3:30 PM ONLINE EDITOR [facility] [address] [place] [address] Brit Gonzáles MD [address] [place] [address] documented as of this encounter Visit Diagnoses Diagnosis Sleep apnea Unspecified sleep apnea documented in this encounter Care Teams Long Wall Shear Operator Relationship Specialty Start Date End Date Megan Infante MD [address] [place] [address] PCP - General FAMILY PRACTICE 04/06/16 Piyush Pandey MD [employer] Stone Fabricator CARDIOVASCULAR DISEASE 04/06/16 12/28/23 Sharmila Davis APRN, ELEVATOR CONSTRUCTOR HELPER-C [address] [facility] [address] [place] [address] NURSE PRACTITIONER 01/04/17 04/03/24 Linda Block MD [address] [facility] [address] [place] [address] [employer] Stone Fabricator CLINICAL CARDIAC ELECTROPHYSIOLOGY 02/08/17 04/12/23 documented as of this encounter
--- OUTSIDE RECORDS SUMMARY | 2024-09-03 20:44 | XMS_ITS | Encounter Summary ---
Author Organization [facility] Address [facility] [place] [address] [place] [address] Care Team Providers Care Vamp Maker Name Role Phone Piyush Pandey MD Unavailable Unavailabl Megan Leos MD Primary Care Provider [phone] Sharmila Davis APRN, CAR DRIVER-C Unavailable [phone] Linda Block MD Unavailable [phone] Encounter Details Date Type Department Care Team (Late st Contact Info) Description 04/21/2018 Abstract [facility] [address] [place] [address] Abstract, Doc [facility] Social History Tobacco [...] st Contact Info) Description 09/25/2024 2:00 PM SECRET SERVICE AGENT Appointment [facility] [address] [place] [address] Zayra Powell, SOFTWARE DEVELOPMENT TEST ENGINEER [address] [place] [address] 10/16/2024 3:30 PM SECRET SERVICE AGENT [facility] [address] [place] [address] Brit Gonzáles MD [address] [place] [address] documented as of this encounter Visit Diagnoses Not on filedocumented in this encounter Care Teams Vamp Maker Relationship Specialty Start Date End Date Megan Infante MD [address] [place] [address] PCP - General FAMILY PRACTICE 04/06/16 Piyush Pandey MD [place] Deputy Sheriff Civil Division CARDIOVASCULAR DISEASE 04/06/16 12/28/23 Sharmila Davis, FORMSTONE FITTER, CAR DRIVER-C [address] [facility] [address] [place] [address] NURSE PRACTITIONER 01/04/17 04/03/24 Linda Block MD [address] [facility] [address] [place] [address] [place] Deputy [employer] Civil [employer] CLINICAL CARDIAC ELECTROPHYSIOLOGY 02/08/17 04/12/23 documented as of this encounter
--- OUTSIDE RECORDS SUMMARY | 2024-09-03 20:44 | XMS_ITS | Encounter Summary ---
Author Organization [facility] Address [address] [place] [address]. [place] [address] [place] [address] Care Team Providers Care Hot Dip Plating Supervisor Name Role Phone Piyush Pandey MD Unavailable Unavailabl Megan Leos MD Primary Care Provider [phone] Sharmila Davis APRN FRAN[place]ISE BUSINESS CONSULTANT-C Unavailable [phone] Linda Block MD Unavailable [phone] Reason for Visit * Reason Comments Consult Breathing Problem Atrial Fibrillation Aortic Valve Disorder Encounter Details Date Type Department Care Team (Latest Contact Info) Description 04/27/2018 1:30 PM CDT Office Visit [facility] [address] [place] [address] Piyush Pandey MD Consult; Breathing Problem; Atrial [...] Check labs- BMP,Mag,BNP in 1 week at [place] 2. Lose weight ( goal 200 lbs)/exercise program 3. Decrease Amlodipine 5 mg daily 4. Start Spironolactone 25 mg daily Patient Education Atrial Fibrillation The Basics Written by the doctors and editors at [facility] What is atrial fibrillation???--??Atrial fibrillation is the [...] process is complete. This topic retrieved from [employer] on: Aug 26, 2017. Topic 25083 Version 11.0 Release: 25.6.2-122 - C26.3 ?2018??[employer]. and/or its affiliates.??All rights reserved. figure 1: Atrial fibrillation This drawing shows where the heart is located in the chest. In atrial fibrillation, the electrical signals that control the heartbeat are abnormal. As a result, the top two chambers of the heart (seearrows) stop pumping effectively, and blood that should move out of these chambers gets left behind. Graphic 56444 Version 3.0 figure 2: Signs of stroke The letters in the word fast help you remember the signs of stroke. If a person shows any of these signs, call an ambulance right away. In the [place] and [place], dial ??9-1-1. ?? Graphic 93020 Version 3.0 Consumer Information Use and Disclaimer [...] that is right for you.The use of [employer] content is governed by the [employer] Terms of Use. ??2018 [employer]. All rights reserved. Copyright ?2018??[employer] and/or its affiliates.??All rights reserved. documented in [...] COPD type 6. Coronary artery disease involving reno-sparks coronary artery of reno-sparks heart without angina pectoris 7. Diabetes mellitus, type II 8. Essential hypertension 9. Mixed hyperlipidemia 10. LV dysfunction 11. Nonrheumatic aortic valve stenosis 12. Permanent atrial fibrillation 13. S/P ablation of atrial fibrillation [place] Documentation Completed: Atrial Fibrillation Referring Provider: No ref. provider found PCP: MEGAN INFANTE MD ENGINEER * Piyush Pandey MD - 04/27/2018 12:00 AM CDT HISTORY OF PRESENT ILLNESS: Mr. Lay is seen in the [facility] today in consultation. He is [...] be performed in 1 week at the [facility] to document stable serum electrolytes and renal function. 3. Aggressive attempts at weight loss and participation in a regular exercise program. 4. Echocardiogram to reassess left ventricular function and Mr. Lay's aortic valve prosthesis. 5. Further evaluation and treatment will be based on the results of Mr. Fraziers echocardiogram result and clinical course. ENGINEER documented in this encounter Plan of Treatment Upcoming Encounters Date Type Department Care Team (Late st Contact Info) Description 09/25/2024 2:00 PM ASIC ENGINEER Appointment [facility] [address] [place] [address] [address] Zayra Powell, [facility] [address] [place] [address] 10/16/2024 3:30 PM ASIC ENGINEER [facility] [address] [facility] [place] [address] Brit Gonzáles MD [address] [place] [address] documented as of this encounter Visit Diagnoses Diagnosis Bilateral carotid artery disease, unspecified type (CMS/HCC)- Primary S/P aortic valve replacement with bioprosthetic valve Heart valve replaced by other means Coronary artery disease involving reno-sparks coronary artery of reno-sparks heart without angina pectoris LV dysfunction Heart disease, unspecified Chronic atrial fibrillation ([facility]/HCC HHS/HCC) Atrial fibrillation Essential hypertension Unspecified essential hypertension Mixed hyperlipidemia Chronic obstructive pulmonary disease, unspecified COPD type (CMS/HCC HHS/HCC) S/P ablation of atrial fibrillation Other postprocedural status documented in this encounter Care Teams Hot Dip Plating Supervisor Relationship Specialty Start Date End Date Megan Infante MD [address] [place] [address] PCP - General FAMILY PRACTICE 04/06/16 Piyush Pandey MD [place] Thoracic Medicine Specialist CARDIOVASCULAR DISEASE 04/06/16 12/28/23 Sharmila Davis, DANNY, FRANCHISE BUSINESS CONSULTANT-C [address] [facility] [address] [place] [address] NURSE PRACTITIONER 01/04/17 04/03/24 Linda Block MD [address] [facility] [address] [place] [address] [place] Thoracic Medicine Specialist CLINICAL CARDIAC ELECTROPHYSIOLOGY 02/08/17 04/12/23 documented as of this encounter
--- OUTSIDE RECORDS SUMMARY | 2024-09-03 20:44 | XMS_ITS | Encounter Summary ---
Author Organization [facility] Address [address] [place] [address]. [place] [address] [place] [address] Care Team Providers Care Pot Fisher Name Role Phone Piyush Pandey MD Unavailable Unavailabl e Megan Infante MD Primary Care Provider [phone] Sharmila Davis APRN COMPUTER TECHNOLOGY INSTRUCTOR-C Unavailable [phone] Linda Block MD Unavailable [phone] Encounter Details Date Type Department Care Team (Late st Contact Info) Description 09/30/2016 Abstract SFL CONVERSION [address] [place] [address] Megan Infante MD [address] [place] [address] Social History Tobacco Use Types Packs/Day [...] (Late Contact Info) Description 09/25/2024 2:00 PM HOTEL ENGINEER Appointment [facility] [address] [place] [address] Zayra Powell, DEVOPS ARCHITECT [address] [place] [address] 10/16/2024 3:30 PM HOTEL ENGINEER [facility] [address] [place] [address] Brit Gonzáles MD [address] [place] [address] documented as of this encounter Visit Diagnoses Diagnosis Pain of right hand Pain in limb documented in this encounter Care Teams Pot Fisher Relationship Specialty Start Date End Date Megan Infante MD [address] [place] [address] PCP - General FAMILY PRACTICE 04/06/16 Piyush Pandey MD [place] Manager Support Services CARDIOVASCULAR DISEASE 04/06/16 12/28/23 Sharmila Davis APRN, COMPUTER TECHNOLOGY INSTRUCTOR-C [address] [facility] [address] [place] [phone] NURSE PRACTITIONER 01/04/17 04/03/24 Linda Block MD [address] [place] [address] [address] [place] [phone] [place] Manager Support Services CLINICAL CARDIAC ELECTROPHYSIOLOGY 02/08/17 04/12/23 documented as of this encounter
--- OUTSIDE RECORDS SUMMARY | 2024-09-03 20:44 | XMS_ITS | Encounter Summary ---
Author Organization [facility] Address [facility] [place] [address] [place] [address] Care Team Providers Care Morgue Technician Name Role Phone Piyush Pandey MD Unavailable UnavailMegan Rodriguez MD Primary Care Provider [phone] Sharmila Davis APRN, CELL ATTENDANT HELPER-C Unavailable [phone] Encounter Details Date Type Department Care Team (Late Contact Info) Description 01/05/2017 Orders Only [facility] [address] [place] [address] Hayley Gee RN Social History [...] (Late Contact Info) Description 09/25/2024 2:00 PM CHIROPRACTOR ASSISTANT Appointment [facility] [address] [place] [address] Zayra Powell, CHICKEN TENDER [address] [place] [address] 10/16/2024 3:30 PM CHIROPRACTOR ASSISTANT Office Visit [facility] [address] [place] [address] Brit Gonzáles MD 619 [place] [address] documented as of this encounter Visit Diagnoses Not on filedocumented in this encounter Care Teams Morgue Technician Relationship Specialty Start Date End Date Megan Infante MD [address] [place] [address] PCP - General FAMILY PRACTICE 04/06/16 Piyush Pandey MD [place] Barrel Loader And Cleaner CARDIOVASCULAR DISEASE 04/06/16 12/28/23 Sharmila Davis APRN, CELL ATTENDANT HELPER-C [address] [facility] [address] [place] [address] NURSE PRACTITIONER 01/04/17 04/03/24 documented as of this encounter
--- OUTSIDE RECORDS SUMMARY | 2024-09-03 20:44 | XMS_ITS | Encounter Summary ---
Author Organization [facility] Address [facility]6 [facility] [place] [address] [place] [address] Care Team Providers Care Retort Furnace Helper Name Role Phone Piyush Pandey MD Unavailable Unavailabl e Megan Infante MD Primary Care Provider [phone] Sharmila Davis APRN FREIGHT UNLOADER-C Unavailable Linda Block MD Unavailable [phone] Jeff Grace MD Unavailable Zaki Ortiz MD Unavailable [phone] Concetta Acevedo MD Unavailable [phone] Jeff Grace MD Unavailable Brit Gonzáles MD Unavailable Encounter Details Date Type Department Care Team (Late Contact Info) Description 01/28/2019 Abstract SFL CONVERSION [address] [place] [address] , Generic Conversion, Social History Tobacco Use [...] Contact Info) Description 09/25/2024 2:00 PM DIRECTOR INFORMATION SECURITY Appointment [facility] [address] [place] [address] Zayra Powell, PULL OVER MACHINE OPERATOR [address] [place] [address] 10/16/2024 3:30 PM DIRECTOR INFORMATION SECURITY Office Visit [facility] [address] [place] [address] Brit Gonzáles MD [address] [place] [address] documented as of this encounter Visit Diagnoses Not on filedocumented in this encounter Additional Health Concerns Infection Onset Date Last Indicated Resolved Time COVID-19 Rule Out 03/02/2020 03/02/2020 03/03/2020 8:23 PM CDT COVID-19 Rule Out 07/03/2020 07/03/2020 07/04/2020 11:25 PM DIRECTOR INFORMATION SECURITY COVID-19 Rule Out 09/07/2020 09/07/2020 09/08/2020 5:52 PM DIRECTOR INFORMATION SECURITY COVID-19 Rule Out 10/05/2020 10/05/2020 10/06/2020 11:37 AM DIRECTOR INFORMATION SECURITY COVID-19 Rule Out 02/08/2021 02/08/2021 02/08/2021 9:06 PM CDT COVID-19 Rule Out 01/24/2022 01/24/2022 01/24/2022 6:41 PM CDT COVID-19 Rule Out 01/04/2023 01/04/2023 01/04/2023 10:12 AM CDT documented as of this encounter Care Teams Retort Furnace Helper Relationship Specialty Start Date End Date Megan Infante MD [address] [place] [phone] PCP - General FAMILY PRACTICE 04/06/16 Piyush Pandey MD [place] Field Tax Auditor CARDIOVASCULAR DISEASE 04/06/16 12/28/23 Sharmila Davis APRN, FREIGHT UNLOADER-C [address] [phone] NURSE PRACTITIONER 01/04/17 04/03/24 Linda Block MD [address] [phone] [place] Field Tax Auditor CLINICAL CARDIAC ELECTROPHYSIOLOGY 02/08/17 04/12/23 Jeff Grace MD [address] [place] [phone] Consulting Physician INTERNAL MEDICINE 02/20/19 3 Zaki Ortiz MD [address] [place] [phone] Consulting Physician PULMONARY DISEASE 07/12/19 Concetta Acevedo MD [address] [place] [address] Surgeon NEUROLOGICAL SURGERY 12/16/22 Jeff Grace MD [address] [place] [address] Consulting Physician INTERNAL MEDICINE 02/11/23 Brit Gonzáles MD [address] [place], [place] [phone] Consulting Physician CARDIOVASCULAR DISEASE 12/29/23 documented as of this encounter
--- OUTSIDE RECORDS SUMMARY | 2024-09-03 20:44 | XMS_ITS | Encounter Summary ---
Author Organization [facility] Address [facility]6 [facility] [place] [address] [place] [address] Care Team Providers Care Special Education Kindergarten Teacher Name Role Phone Piyush Pandey MD Unavailable Unavailabl e Megan Infante MD Primary Care Provider [phone] Sharmila Davis APRN, NP-C Unavailable [phone] Linda Block MD Unavailable [phone] Jeff Grace MD Unavailable Reason for Referral * Imaging (Routine) - Closed Specialty Diagnoses / Procedures Referred By Contac t Referred To Contact CARDIOLOGY Diagnoses Bilateral carotid bruits Procedures USV CAROTID DUPLEX Jeff Pulido MD [address] [place] [address] Phone: tel: fax: Referral ID Status Reason Start Date Expiration Date Visits Re quested Visits Authorized [id number] Closed 03/07/2019 04/07/2020 1 1 * Imaging (Routine) - Closed Specialty Diagnoses / Procedures Referred By Contac t Referred To Contact CARDIOLOGY Diagnoses Pain in both lower extremities Procedures USV ART DUPLEX LOW Jeff Pulido MD [address] [place] [address] Phone: tel: fax: Referral ID Status Reason Start Date Expiration Date Visits Re quested Visits Authorized [id number] Closed 03/07/2019 04/07/2020 1 1 Reason for Visit * Imaging (Routine) - Closed Specialty Diagnoses / Procedures Referred By Contac t Referred To Contact CARDIOLOGY Diagnoses Bilateral carotid bruits Procedures USV CAROTID DUPLEX ELZA Jeff Grace MD [address] [facility] [address] [place] [address] Phone: tel: fax: Referral ID Status Reason Start Date Expiration Date Visits Re quested Visits Authorized [id number] Closed 03/07/2019 04/07/2020 1 1 Encounter Details Date Type Department Care Team (Latest Contact Info) Description 03/07/2019 2:49 PM CDT - 03/07/2019 11:59 PM CDT Hospital Encounter [facility] [address] [place] [address] Jfef Grace MD [address], [place] [address] Discharge Disposition: Home or Self Care (Routine [...] st Contact Info) Description 09/25/2024 2:00 PM MIXED CROP AND LIVESTOCK FARMER Appointment [facility] [address] [place] [address] Zayra Powell FNP [address] [place] [address] 10/16/2024 3:30 PM MIXED CROP AND LIVESTOCK FARMER Office Visit [facility] [address] [place] [phone] Brit Gonzáles MD [address] [place] [address] documented as of this encounter Procedures Procedure [...] bruits documented in this encounter Care Teams Special Education Kindergarten Teacher Relationship Specialty Start Date End Date Megan Infante MD [address] [place] [phone] PCP - General FAMILY PRACTICE 04/06/16 Piyush Pandey MD [place] Cpc Coder CARDIOVASCULAR DISEASE 04/06/16 12/28/23 Sharmila Davis, PROPERTY ASSESSMENT MONITOR, SHEET ROCK INSTALLER-C [address] [place] [address] [phone] NURSE PRACTITIONER 01/04/17 04/03/24 Linda Block MD [address] [place] [address] [place] Cpc Coder CLINICAL CARDIAC ELECTROPHYSIOLOGY 02/08/17 04/12/23 Jeff Grace MD [address] [place] [address] Consulting Physician INTERNAL MEDICINE 02/20/19 3 documented as of this encounter
--- OUTSIDE RECORDS SUMMARY | 2024-09-03 20:44 | XMS_ITS | Encounter Summary ---
Author Organization [facility] Address [facility]6 [facility] [place] [address] [place] [address] Care Team Providers Care Psychiatric Cns Name Role Phone Piyush Pandey MD Unavailable Unavailabl e Megan Infante MD Primary Care Provider [phone] Sharmila Davis APRN, FRONT COUNTER ATTENDANT-C Unavailable [phone] Linda Block MD Unavailable [phone] Jeff Grace MD Unavailable Reason for Visit * Reason Comments Follow Up Shortness Of Breath Encounter Details Date Type Department Care Team (Latest Contact Info) Description 05/05/2019 11:00 AM CDT Office Visit [facility] [address] [place] [address] Sharmila Davis, DANNY, FRONT COUNTER ATTENDANT-C [address] [facility] [address] [place] [address] Follow Up; Shortness Of Breath [...] me that he has not seen his die storage clerk for a couple years. We will trial [...] NATRIURETIC PEPTIDE 2. Coronary artery disease involving kake coronary artery of kake heart, angina presence unspecified 3. S/P aortic valve replacement with bioprosthetic valve 4. Chronic atrial fibrillation (CMS/HCC) 5. Current use of shelter anticoagulation PROTHROMBIN TIME, VENOUS 6. Essential hypertension 7. Mixed hyperlipidemia PINNACLE Documentation Completed: Atrial Fibrillation Coronary Artery Disease Heart Failure Referring Provider: No ref. provider found PCP: MEGAN INFANTE MD documented in this encounter Plan of Treatment Upcoming Encounters Date Type Department Care Team (Late st Contact Info) Description 09/25/2024 2:00 PM TYPING OFFICE WORKER Appointment [facility] [address] [place] [address] Zayra Powell FNP [address] [place] [address] 10/16/2024 3:30 PM TYPING OFFICE WORKER Office Visit [facility] [address] [place] [address] Brit Gonzáles MD [address] [place] [address] documented as of this encounter Results * (ABNORMAL) PROTHROMBIN TIME, VENOUS (05/05/2019 11:59 AM CDT) PROTIME 26.5(H) 11.6 - 14.3 SEC 05/05/2019 12:16 PM CDT [facility] INR 2.5(H) 0.9 - 1.1 05/05/2019 12:16 PM CDT [facility] 05/05/2019 11:5 9 AM CDT Sharmila Davis APRN, NP-C LABORATORY Final Result Performing Organization Address [facility] de Phone Number [facility] [address] [place] [address], [id number] * (ABNORMAL) PRO-BRAIN NATRIURETIC PEPTIDE (05/05/2019 11:59 AM CDT) [facility] PRO-B TYPE NATRIURETIC PEPTIDE 470(H) <125 PG/ML 05/05/2019 12:35 PM CDT [facility] Comment: AGE INDEPENDENT: <300 PG/ML [...] Final Result Performing Organization Address [facility] de Phone Number [facility] [address] [place] [address], [id number] * (ABNORMAL) COMPREHENSIVE METABOLIC PANEL (05/05/2019 11:59 AM CDT) SODIUM S/P/B 133(L) 136 - 145 MMOL/L 05/05/2019 12:35 PM CDT [facility] POTASSIUM S/P/B 3.9 3.5 - 5.1 MMOL/L 05/05/2019 12:35 PM T [facility] CHLORIDE S/P/B 100 98 - 107 MMOL/L 05/05/2019 12:35 PM CDT [facility] CO2 29.0 21.0 - 32.0 MMOL/L 05/05/2019 12:35 PM CDT [facility] GLUCOSE 135(H) 74 - 106 MG/DL 05/05/2019 12:35 PM T [facility] BUN 27(H) 7 - 18 MG/DL 05/05/2019 12:35 PM T [facility] CREATININE S/P/B 1.25 0.70 - 1.30 MG/DL 05/05/2019 12:35 PM CDT [facility] CALCIUM S/P/B 9.3 8.5 - 10.1 MG/DL 05/05/2019 12:35 PM CDT [facility] BILIRUBIN TOTAL S/P/B 1.0 0.2 - 1.0 MG/DL 05/05/2019 12:35 PM T [facility] ALKALINE PHOSPHATASE S/P/B 95 45 - 115 U/L 05/05/2019 12:35 PM CDT [facility] AST 21 15 - 37 U/L 05/05/2019 12:35 PM CDT [facility] ALT 44 16 - 61 U/L 05/05/2019 12:35 PM CDT [facility] TOTAL PROTEIN S/P/B 8.2 6.4 - 8.2 G/DL 05/05/2019 12:35 PM T [facility] ALBUMIN S/P/B 3.3(L) 3.4 - 5.0 G/DL 05/05/2019 12:35 PM CDT [facility] ANION GAP 4.0(L) 5.0 - 15.0 MMOL/L 05/05/2019 12:35 PM CDT [facility] Comment:REFERENCE RANGE NOT ESTABLISHED OSMOLALITY (CALC) 283 MOSM/KG 05/05/2019 12:35 PM CDT [facility] Comment:REFERENCE RANGE NOT ESTABLISHED EGFR NON-AFR. AMER. 60(L) >90 ML/MIN/1 .73 M2 05/05/2019 12:35 PM CDT [facility] EGFR AFR. AMER. 70(L) >90 ML/MIN/1 .73 M2 05/05/2019 12:35 PM CDT [facility] GFR NOTES THE ESTIMATED GFR IS CALCULATED USING THE 2009 CKD-EPI EQUATION. THE FOLLOWING CATEGORIES FOR GRADING RENAL FUNCTION ARE RECOMMENDED BY THE INTERNATIONAL SOCIETY OF NEPHROLOGY (KDIGO 2012 CLINICAL PRACTICE GUIDELINE). 05/05/2019 12:35 PM CDT [facility] Comment: G1,NORMAL OR HIGH: >89 ml/min/1.73 m2 G2,MILDLY DECREASED: 60-89 ml/min/1.73 m2 G3A,MILDLY TO MODERATELY DECREASED: 45-59 ml/min/1.73 m2 G3B,MODERATELY TO SEVERELY DECREASED: 30-44 ml/min/1.73 m2 G4,SEVERELY DECREASED: 15-29 ml/min/1.73 m2 G5,KIDNEY FAILURE: <15 ml/min/1.73 m2 05/05/2019 11:5 9 AM CDT ALDAIR Guillen APRNC LABORATORY Final Result [facility] [address] [place] [address], [id number] * (ABNORMAL) CBC, AUTO, NO DIFF (05/05/2019 11:59 AM CDT) WBC 9.3 4.0 - 10.8 x10'3/uL 05/05/2019 12:07 PM CDT [facility] RBC 4.04(L) 4.50 - 6.10 x10'6/uL 05/05/2019 12:07 PM CDT [facility] HGB 12.3(L) 13.0 - 18.0 G/DL 05/05/2019 12:07 PM CDT [facility] HCT 37.9 37.0 - 52.0 % 05/05/2019 12:07 PM CDT [facility] MCV 93.8 78.0 - 100.0 FL 05/05/2019 12:07 PM CDT [facility] MCH 30.4 27.0 - 31.0 PG 05/05/2019 12:07 PM CDT [facility] MCHC 32.5(L) 33.0 - 36.0 G/DL 05/05/2019 12:07 PM CDT [facility] RDW 14.7(H) 11.5 - 14.5 % 05/05/2019 12:07 PM CDT [facility] PLT 217 150 - 350 x10'3/uL 05/05/2019 12:07 PM CDT [facility] MPV 9.4 7.4 - 10.4 FL 05/05/2019 12:07 PM CDT [facility] 05/05/2019 11:5 9 AM CDT ALDAIR Guillen APRNC LABORATORY Final Result [facility] [address] [place] [address], [id number] documented in this encounter Visit Diagnoses Diagnosis Shortness of breath Coronary artery disease involving kake coronary artery of kake heart, angina presence unspecified S/P aortic valve replacement with bioprosthetic valve Heart valve replaced by other means Chronic atrial fibrillation ([facility]/HCC [facility]/HCC) Atrial fibrillation Current use of long term care pharmacist anticoagulation Encounter for long-term (current) use of anticoagulants Essential hypertension Unspecified essential hypertension Mixed hyperlipidemia documented in this encounter Care Teams Psychiatric Cns Relationship Specialty Start Date End Date Megan Infante MD [address] [place] [address] PCP - General FAMILY PRACTICE 04/06/16 Piyush Pandey MD Man Group Home Worker CARDIOVASCULAR DISEASE 04/06/16 12/28/23 Sharmila Davis, COMMUNITY ADVOCATE, FRONT COUNTER ATTENDANT-C [address] [facility] [address] [place] [address] NURSE PRACTITIONER 01/04/17 04/03/24 Linda Block MD [address] [facility] [address] [place] [address] Man Group Home Worker CLINICAL CARDIAC ELECTROPHYSIOLOGY 02/08/17 04/12/23 Jeff Grace MD [address] [facility] [address] [place] [address] Consulting Physician INTERNAL MEDICINE 02/20/19 3 documented as of this encounter
--- OUTSIDE RECORDS SUMMARY | 2024-09-03 20:44 | XMS_ITS | Encounter Summary ---
Author Organization [facility] Address [facility] [place] [address] [place] [address] Care Team Providers Care Cytogenetic Technologist Name Role Phone Piyush Pandey MD Unavailable UnavailMegan Rodrigeuz MD Primary Care Provider [phone] Sharmila Davis APRN FRANCHISE CONSULTANT-C Unavailable [phone] Reason for Referral * Imaging (Routine) - Completed Specialty Diagnoses / Procedures Referred By Yung sequeira Referred To Contact CARDIOLOGY Diagnoses Aortic valve stenosis Chest pain Dyspnea Procedures USE ECHOCARDIOGRAM Piyush Pandey MD [facility] [address] [place] [address] Phone: tel: Referral ID Status Reason Start Date Expiration Date V isits Requested Visits Authorized [id number] Completed 01/06/2017 02/06/2018 1 1 * Imaging (Routine) - Completed Specialty Diagnoses / Procedures Referred By Yung sequeira Referred To Contact CARDIOLOGY Diagnoses Aortic valve stenosis Chest pain Dyspnea Procedures NM PHARM NUC STRESS TEST 1DAY Piyush Pandey MD [facility] [address] [place] [address] Phone: tel: fax: Referral ID Status Reason Start Date Expiration Date V isits Requested Visits Authorized [id number] Completed 01/06/2017 02/06/2018 1 1 Encounter Details Date Type Department Care Team (Late st Contact Info) Description 01/06/2017 Orders Only [facility] [address] [place] [address] Piyush Pandey MD Social History Tobacco Use [...] st Contact Info) Description 09/25/2024 2:00 PM BEATER AND PULPER FEEDER Appointment [facility] [address] [place] [address] Zayra Powell, DETECTIVE NARCOTICS AND VICE [address] [place] [address] 10/16/2024 3:30 PM BEATER AND PULPER FEEDER Office Visit [facility] [address] [place] [address] Brit Gonzáles MD [address] [place] [address] Scheduled Orders Name Type Priority Associated Diagnoses [...] abnormality documented in this encounter Care Teams Cytogenetic Technologist Relationship Specialty Start Date End Date Megan Infante MD [address] [place] [address] PCP - General FAMILY PRACTICE 04/06/16 Piyush Pandey MD [place] Record Filing Clerk CARDIOVASCULAR DISEASE 04/06/16 12/28/23 Sharmila Davis, INFLATED PAD BUFFER, FRANCHISE CONSULTANT-C [address] [facility] [address] [place] [address] NURSE PRACTITIONER 01/04/17 04/03/24 documented as of this encounter
--- OUTSIDE RECORDS SUMMARY | 2024-09-03 20:44 | XMS_ITS | Encounter Summary ---
Author Organization [facility] Address [facility] [place] [address] [place] [address] Care Team Providers Care Med Surg Rn Name Role Phone Piyush Pandey MD Unavailable Unavailabl Megan Leos MD Primary Care Provider [phone] Sharmila Davis APRN, NUCLEAR WEAPONS SPECIALIST-C Unavailable Linda Block MD Unavailable [phone] Encounter Details Date Type Department Care Team (Late st Contact Info) Description 04/28/2018 Orders Only [facility] [address] [place] [address] Piyush Pandey MD Social History [...] st Contact Info) Description 09/25/2024 2:00 PM TOUR PRODUCTION SUPERVISOR Appointment [facility] [address] [place] [address] Zayra Powell, PIPE PULLER [address] [place] [address] 10/16/2024 3:30 PM TOUR PRODUCTION SUPERVISOR [facility] [address] [place] [address] Brit Gonzáles MD [address] [place] [address] documented as of this encounter Visit Diagnoses Diagnosis S/P AVR- Primary Heart valve replaced by other means CHF (congestive heart failure) ([facility]) Congestive heart failure, unspecified Atrial fibrillation ([facility]) Atrial fibrillation documented in this encounter Care Teams Med Surg Rn Relationship Specialty Start Date End Date Megan Infante MD [address] [place] [address] PCP - General FAMILY PRACTICE 04/06/16 Piyush Pandey MD [place] Mortgage Processing Manager CARDIOVASCULAR DISEASE 04/06/16 12/28/23 Sharmila Davis APRN, NUCLEAR WEAPONS SPECIALIST-C [address] [facility] [address] [place] [phone] NURSE PRACTITIONER 01/04/17 04/03/24 Linda Block MD [address] [facility] [address] [place] [address] [place] Mortgage Processing Manager CLINICAL CARDIAC ELECTROPHYSIOLOGY 02/08/17 04/12/23 documented as of this encounter
--- OUTSIDE RECORDS SUMMARY | 2024-09-03 20:44 | XMS_ITS | Encounter Summary ---
Author Organization [facility] Address [facility] [place] [address] [place] [address] Care Team Providers Care Light Armored Vehicle Officer Name Role Phone Piyush Pandey MD Unavailable Unavailabl e Megan Ifnante MD Primary Care Provider [phone] Sharmila Davis APRN FABRICATION DEPARTMENT SUPERVISOR-C Unavailable [phone] Lnida Block MD Unavailable [phone] Jeff Grace MD Unavailable Reason for Visit * Reason Onset Date Comments Results 03/10/2019 Encounter Details Date Type Department Care Team (Late st Contact Info) Description 03/10/2019 Telephone [facility] [address] [place] [address] Jeff Grace MD [address] [place] [address] Results Social History Tobacco Use [...] arterial duplex that revealed acceptable . This securities underwriter s/w pt to inform of he above and will f/u as directed documented in this encounter Plan of Treatment Upcoming Encounters Date Type Department Care Team (Late st Contact Info) Description 09/25/2024 2:00 PM AIR TRAFFIC CONTROL EQUIPMENT REPAIRER Appointment [facility] [address] [place] [address] Zayra Powell, BAG PRESS OPERATOR [address] [place] [address] 10/16/2024 3:30 PM AIR TRAFFIC CONTROL EQUIPMENT REPAIRER Office Visit [facility] [address] [place] [address] Brit Gonzáles MD [address] [place], [place] [phone] documented as of this encounter Visit Diagnoses Not on filedocumented in this encounter Care Teams Light Armored Vehicle Officer Relationship Specialty Start Date End Date Megan Infante MD [address] [place] [address] PCP - General FAMILY PRACTICE 04/06/16 Piyush Pandey MD [place] Replanting Machine Crewman CARDIOVASCULAR DISEASE 04/06/16 12/28/23 Sharmila Davis APRN, FABRICATION DEPARTMENT SUPERVISOR-C [address] [facility] [address] [place] [address] NURSE PRACTITIONER 01/04/17 04/03/24 Linda Block MD [address] [facility] [address] [place] [address] [place] Replanting Machine Crewman CLINICAL CARDIAC ELECTROPHYSIOLOGY 02/08/17 04/12/23 Jeff Grace MD [address] [place] [address] Consulting Physician INTERNAL MEDICINE 02/20/19 3 documented as of this encounter
--- OUTSIDE RECORDS SUMMARY | 2024-09-03 20:44 | XMS_ITS | Encounter Summary ---
Author Organization [facility] Address [facility] [place] [address] [place] [address] Care Team Providers Care Elementary Supervisor Name Role Phone Piyush Pandey MD Unavailable Unavailabl e Megan Infante MD Primary Care Provider [phone] Sharmila Davis APRN, NP-C Unavailable [phone] Linda Block MD Unavailable [phone] Reason for Referral * Imaging (Routine) - Closed Specialty Diagnoses / Procedures Referred By Yung sequeira Referred To Contact CARDIOLOGY Diagnoses Aortic stenosis Procedures USE ECHOCARDIOGRAM Piyush Pandey MD [facility] [address] Phone: tel: fax: Referral ID Status Reason Start Date Expiration Date Visits Re quested Visits Authorized [id number] Closed 05/04/2018 06/04/2019 1 1 Encounter Details Date Type Department Care Team (Late st Contact Info) Description 05/04/2018 [facility] Only [facility] [address] [place] [address] Piyush Pandey MD Social History [...] st Contact Info) Description 09/25/2024 2:00 PM SIGN CARPENTER Appointment [facility] [address] [place] [address] Zayra Powell, POSTING MACHINE OPERATOR [address] [place] [address] 10/16/2024 3:30 PM SIGN CARPENTER Office Visit [facility] [address] [place] [address] Brit Gonzáles MD [address] [place], [place] [phone] documented as of this encounter Results * USE ECHOCARDIOGRAM (05/09/2018) Anatomical Region Laterality Modality Cardiac Echocardiogram us Piyush Pandey MD ECHO Final Resul t documented in this encounter Visit Diagnoses Diagnosis Aortic stenosis- Primary Aortic valve disorders documented in this encounter Care Teams Elementary Supervisor Relationship Specialty Start Date End Date Megan Infante MD [address] [facility] [place] [address] PCP - General FAMILY PRACTICE 04/06/16 Piyush Pandey MD [place] Registration Rep CARDIOVASCULAR DISEASE 04/06/16 12/28/23 Sharmila Davis, FONDANT COOKER, SUPERVISOR ELECTROLYTIC TINNING-C [address] [facility] [address] [place] [address] NURSE PRACTITIONER 01/04/17 04/03/24 Linda Block MD [address] [place] [address] [place] Registration Rep CLINICAL CARDIAC ELECTROPHYSIOLOGY 02/08/17 04/12/23 documented as of this encounter
--- OUTSIDE RECORDS SUMMARY | 2024-09-03 20:44 | XMS_ITS | Encounter Summary ---
Author Organization [facility] Address [address] [place] [address]. [place] [address] [place] [address] Care Team Providers Care Director Of Accounts Payable Name Role Phone Piyush Pandey MD, Amy E MD Primary Care Provider Reason for Visit * Reason Comments Image (SCAN) Sleep Study (SCAN) ECG (SCAN) Encounter Details Date Type Department Care Team (Late st Contact Info) Description 09/15/2016 Scan [facility] [address] [place] [address] Scanned, Documents Image (SCAN); Sleep [...] st Contact Info) Description 09/25/2024 2:00 PM MALT HOUSE SUPERVISOR Appointment [facility] [address] [place] [address] Zayra Powell, [facility] [address] [place] [address] 10/16/2024 3:30 PM MALT HOUSE SUPERVISOR Office Visit [facility] [address] [address] Brit Gonzáles MD [address] [place] [address] documented as of this encounter Procedures Procedure [...] in this encounter Care Teams Director Of Accounts Payable Relationship Specialty Start Date End Date Megan Infatne MD [address] [place] [address] PCP - General FAMILY PRACTICE 04/06/16 Piyush Pandey MD [place] Inspector Metal Fabricating CARDIOVASCULAR DISEASE 04/06/16 12/28/23 documented as of this encounter
--- OUTSIDE RECORDS SUMMARY | 2024-09-03 20:44 | XMS_ITS | Encounter Summary ---
Author Organization [facility] Address [facility] [place] [address] [place] [address] Care Team Providers Care Quality Assurance/R&D Lab Technician Name Role Phone Piyush Pandey MD Unavailable Unavailabl Megan Leos MD Primary Care Provider [phone] Sharmila Davis APRN, WINE STEWARD-C Unavailable [phone] Linda Block MD Unavailable [phone] Encounter Details Date Type Department Care Team (Latest Contact Info) Description 06/25/2016 Abstract [facility] Shubham Callahan MD [address] [place] [address] Social History Tobacco Use Types Packs/Day Years [...] st Contact Info) Description 09/25/2024 2:00 PM LAW EXAMINER Appointment [facility] [address] [place] [address] Zayra Powell, BUSINESS EDUCATION INSTRUCTOR [address] [place] [address] 10/16/2024 3:30 PM LAW EXAMINER [facility] [address] [place] [address] Brit Gonzáles MD [address] [place] [address] documented as of this encounter Visit Diagnoses Not on filedocumented in this encounter Care Teams Quality Assurance/R&D Lab Technician Relationship Specialty Start Date End Date Megan Infante MD [address] [place] [address] PCP - General FAMILY PRACTICE 04/06/16 Piyush Pandey MD [place] Command And Control Officer CARDIOVASCULAR DISEASE 04/06/16 12/28/23 Sharmila Davis APRN, WINE STEWARD-C [address] [facility] [address] [place] [address] NURSE PRACTITIONER 01/04/17 04/03/24 Linda Block MD [address] [facility] [address] [place] [address] [place] Command And Control Officer CLINICAL CARDIAC ELECTROPHYSIOLOGY 02/08/17 04/12/23 documented as of this encounter
--- OUTSIDE RECORDS SUMMARY | 2024-09-03 20:44 | XMS_ITS | Encounter Summary ---
Author Organization [facility] Address [facility] [place] [address] [place] [address] Care Team Providers Care Towel Sewer Name Role Phone Piyush Pandey MD Unavailable Unavailabl e Megan Infante MD Primary Care Provider [phone] Sharmila Davis APRN PAYMENT REP-C Unavailable [phone] Linda Block MD Unavailable [phone] Reason for Referral * Imaging (Routine) - Closed Specialty Diagnoses / Procedures Referred By Yung sequeira Referred To Contact CARDIOLOGY Diagnoses Aortic valve disease Procedures USE ECHOCARDIOGRAM (97271) Piyush Pandey MD [facility] [address] [place] [address] Phone: tel: Referral ID Status Reason Start Date Expiration Date Visits Re quested Visits Authorized [id number] Closed 02/16/2017 03/19/2018 1 1 Encounter Details Date Type Department Care Team (Late st Contact Info) Description 02/16/2017 Orders Only [facility] [address] [place] [address] Piyush Pandey MD Social History [...] st Contact Info) Description 09/25/2024 2:[address] App[address] [facility] [address] [place] [address] Zayra Powell, MGMT CONSULTANT [address] [place] [address] 10/16/2024 3:30 PM STRIP CATCHER Office Visit [facility] [address] [place] [address] Brit Gonzáles MD [address] [place], [place] [phone] documented as of this encounter Procedures Procedure Name Priority Date/Time Associated Diagnosis Comments USE ECHOCARDIOGRAM Routine 02/18/2017 Aortic valve disease documented in this encounter Results * USE ECHOCARDIOGRAM (68496) (02/18/2017) Anatomical Region Laterality Modality Cardiac Echocardiogram us Piyush Pandey MD ECHO Final Resul t documented in this encounter Visit Diagnoses Diagnosis Aortic valve disease- Primary Aortic valve disorders documented in this encounter Care Teams Towel Sewer Relationship Specialty Start Date End Date Megan Infante MD [address] [place] [address] PCP - General FAMILY PRACTICE 04/06/16 Piyush Pandey MD [place] Cold Mill Operator CARDIOVASCULAR DISEASE 04/06/16 12/28/23 Sharmila Davis APRN, PAYMENT REP-C [address] [facility] [address] [place] [address] NURSE PRACTITIONER 01/04/17 04/03/24 Linda Block MD [address] [facility] [address] [place] [address] [place] Cold Mill Operator CLINICAL CARDIAC ELECTROPHYSIOLOGY 02/08/17 04/12/23 documented as of this encounter
--- OUTSIDE RECORDS SUMMARY | 2024-09-03 20:44 | XMS_ITS | Encounter Summary ---
Author Organization [facility] Address [facility] [place] [address] [place] [address] Care Team Providers Care Drain Cleaner Plumber Name Role Phone Piyush Pandey MD Unavailable Unavailabl e Megan Infante MD Primary Care Provider [phone] Sharmila Davis APRN, NP-C Unavailable Linda Block MD Unavailable [phone] Jeff Grace MD Unavailable Reason for Visit * Reason Onset Date Comments Appointment Request 04/12/2019 Encounter Details Date Type Department Care Team (Late st Contact Info) Description 04/12/2019 Telephone [facility] [address] [place] [address] Piyush Pandey MD Appointment Request [...] Contact Info) Description 09/25/2024 2:00 PM EMERGENCY VEHICLE OPERATIONS INSTRUCTOR [facility]ointment [facility] [address] [place] [address] Zayra Powell, R&D ENGINEER [address] [place] [id number] 10/16/2024 3:30 PM EMERGENCY VEHICLE OPERATIONS INSTRUCTOR Office Visit [facility] [address] [facility] [place] [address] Brit Gonzáles MD [address] [place] [address] documented as of this encounter Visit Diagnoses Not on filedocumented in this encounter Care Teams Drain Cleaner Plumber Relationship Specialty Start Date End Date Megan Infante MD [address] [facility] [place] [address] PCP - General FAMILY PRACTICE 04/06/16 Piyush Pandey MD [place] Advanced Manager CARDIOVASCULAR DISEASE 04/06/16 12/28/23 Sharmila Davis, BUSINESS OPERATIONS ANALYST, RESIDENTIAL FRAMING CARPENTER-C [address] [facility] [address] [place] [address] NURSE PRACTITIONER 01/04/17 04/03/24 Linda Block MD [address] [facility] [address] [place] [address] [place] Advanced Manager CLINICAL CARDIAC ELECTROPHYSIOLOGY 02/08/17 04/12/23 Jeff Grace MD [address] [place] [address] [address] Consulting Physician INTERNAL MEDICINE 02/20/19 3 documented as of this encounter
--- OUTSIDE RECORDS SUMMARY | 2024-09-03 20:44 | XMS_ITS | Encounter Summary ---
Author Organization [facility] Address [facility] [place] [address] [place] [address] Care Team Providers Care Recycle Driver Name Role Phone Piyush Pandey MD Unavailable Unavailabl e Megan Infante MD Primary Care Provider [phone] Sharmila Davis APRN, EXPLOSIVES WORKER-C Unavailable Linda Block MD Unavailable [phone] Jeff Grace MD Unavailable Encounter Details Date Type Department Care Team (Late st Contact Info) Description 02/20/2019 Abstract [facility] [address] [place] [address] Abstract, Doc [facility] Social History Tobacco Use [...] st Contact Info) Description 09/25/2024 2:00 PM OPERATIONS ANALYST Appointment [facility] [address] [place] [address] Zayra Powell, REFRIGERATOR REPAIRMAN [address] [place] [address] 10/16/2024 3:30 PM OPERATIONS ANALYST [facility] [address] [place] [address] Brit Gonzáles MD 619 [place] [address] documented as of this encounter Visit Diagnoses Not on filedocumented in this encounter Care Teams Recycle Driver Relationship Specialty Start Date End Date Megan Infante MD [address] [place] [address] PCP - General FAMILY PRACTICE 04/06/16 Piyush Pandey MD [place] Python Programmer CARDIOVASCULAR DISEASE 04/06/16 12/28/23 Sharmila Davis APRN, EXPLOSIVES WORKER-C [address] [facility] [address] [address] NURSE PRACTITIONER 01/04/17 04/03/24 Linda Block MD [address] [facility] [address] [address] [place] Python Programmer CLINICAL CARDIAC ELECTROPHYSIOLOGY 02/08/17 04/12/23 Jeff Grace MD 6[address] [facility] [address] [place] [address] Consulting Physician INTERNAL MEDICINE 02/20/19 3 documented as of this encounter
--- OUTSIDE RECORDS SUMMARY | 2024-09-03 20:44 | XMS_ITS | Encounter Summary ---
Author Organization [facility] Address [facility] [place] [address] [place] [address] Care Team Providers Care Media Supervisor Name Role Phone Piyush Pandey MD Unavailable Unavailabl e Megan Infante MD Primary Care Provider [phone] Sharmila Davis APRN VARNISHER PLASTICOATER-C Unavailable Linda Block MD Unavailable [phone] Jeff Grace MD Unavailable Zaki Ortiz MD Unavailable [phone] Concetta Acevedo MD Unavailable [phone] Jeff Graec MD Unavailable Brit Gonzáles MD Unavailable Encounter Details Date Type Department Care Team (Late st Contact Info) Description 03/29/2017 Abstract [facility] [address] [place] [address] Piyush Pandey MD Social History Tobacco Use [...] st Contact Info) Description 09/25/2024 2:00 PM NITRILES LAB TECHNICIAN Appointment [facility] [address] [place], [place] [address] Zayra Powell, [employer]WARE ADMINISTRATOR [address] [place] [address] 10/16/2024 3:30 PM NITRILES LAB TECHNICIAN Office Visit [facility] [address] [place] [address] Brit Gonzáles MD [address] [place] [address] documented as of this encounter Visit Diagnoses Not on filedocumented in this encounter Additional Health Concerns Infection Onset Date Last Indicated Resolved Time COVID-19 Rule Out 03/02/2020 03/02/2020 03/03/2020 8:23 PM CDT COVID-19 Rule Out 07/03/2020 07/03/2020 07/04/2020 11:25 PM NITRILES LAB TECHNICIAN COVID-19 Rule Out 09/07/2020 09/07/2020 09/08/2020 5:52 PM NITRILES LAB TECHNICIAN COVID-19 Rule Out 10/05/2020 10/05/2020 10/06/2020 11:37 AM NITRILES LAB TECHNICIAN COVID-19 Rule Out 02/08/2021 02/08/2021 02/08/2021 9:06 PM CDT COVID-19 Rule Out 01/24/2022 01/24/2022 01/24/2022 6:41 PM CDT COVID-19 Rule Out 01/04/2023 01/04/2023 01/04/2023 10:12 AM CDT documented as of this encounter Care Teams Media Supervisor Relationship Specialty Start Date End Date Megan Infante MD [address] [place] [address] PCP - General FAMILY PRACTICE 04/06/16 Piyush Pandey MD [place] Music Therapy Specialist CARDIOVASCULAR DISEASE 04/06/16 12/28/23 Sharmila Davis, DANNY, VARNISHER PLASTICOATER-C [address] [address] NURSE PRACTITIONER 01/04/17 04/03/24 Linda Block MD [address] [place] [phone] [place] Music Therapy Specialist CLINICAL CARDIAC ELECTROPHYSIOLOGY 02/08/17 04/12/23 Jeff Grace MD [address] [address] Consulting Physician INTERNAL MEDICINE 02/20/19 3 Zaki Ortiz MD [address] [place] [address] Consulting Physician PULMONARY DISEASE 07/12/19 Concetta Acevedo MD [address] [place] [address] Surgeon NEUROLOGICAL SURGERY 12/16/22 Jeff Grace MD 9 [place], [place] [address] Consulting Physician INTERNAL MEDICINE 02/11/23 Brit Gonzáles MD [address]19 [place], [place] [address] Consulting Physician CARDIOVASCULAR DISEASE 12/29/23 documented as of this encounter
--- OUTSIDE RECORDS SUMMARY | 2024-09-03 20:44 | XMS_ITS | Encounter Summary ---
Author Organization [facility] Address [address] [place] [address]. [place] [address] [place] [address] Care Team Providers Care Finishing Inspector Name Role Phone Piyush Pandey MD Unavailable Unavailabl Megan Leos MD Primary Care Provider [phone] Sharmila Davis APRN WIRELESS SALES MANAGER-C Unavailable Linda Block MD Unavailable [phone] Reason for Visit * Reason Onset Date Comments Echo 02/15/2017 Encounter Details Date Type Department Care Team (Late st Contact Info) Description 02/15/2017 Telephone [facility] [address] [place] [address] Piyush Pandey MD Echo Social [...] scheduled for an echocardiogram on 02/17/17 in [place] @ 4:00. documented in this encounter Plan of Treatment Upcoming Encounters Date Type Department Care Team (Late st Contact Info) Description 09/25/2024 2:[address] [facility] [address] [place] [address] Zayra Powell, TACTICAL DEBRIEFER OFFICER [address] [place] [address] 10/16/2024 3:30 PM CORSET MAKER Office Visit [facility] [address] [place] [address] Brit Gonzáles MD 619 [place], [place] [address] documented as of this encounter Visit Diagnoses Not on filedocumented in this encounter Care Teams Finishing Inspector Relationship Specialty Start Date End Date Megan Infante MD [address] [facility] [place] [address] PCP - General FAMILY PRACTICE 04/06/16 Piyush Pandey MD [place] Director Of Software Development CARDIOVASCULAR DISEASE 04/06/16 12/28/23 Sharmila Davis, DANNY, WIRELESS SALES MANAGER-C [address] [facility] [address] [place] [address] NURSE PRACTITIONER 01/04/17 04/03/24 Linda Block MD [address] [facility] [address] [place] [address] [place] Director Of Software Development CLINICAL CARDIAC ELECTROPHYSIOLOGY 02/08/17 04/12/23 documented as of this encounter
--- OUTSIDE RECORDS SUMMARY | 2024-09-03 20:44 | XMS_ITS | Encounter Summary ---
Author Organization [facility] Address [facility] [place] [address] [place] [address] Care Team Providers Care Grooming Assistant Name Role Phone Piyush Pandey MD Unavailable Unavailabl Megan Leos MD Primary Care Provider [phone] Sharmila Davis APRN PICKER / PACKER-C Unavailable [phone] Linda Block MD Unavailable [phone] Reason for Visit * Reason Onset Date Comments Medication 03/04/2017 Encounter Details Date Type Department Care Team (Late st Contact Info) Description 03/04/2017 Telephone [facility] [address] [place] [address] Piyush Pandey MD Medication Social [...] drawn today. Order will be faxed to [facility]. Pt notified by phone of meds and labs and v/u. documented in this encounter Plan of Treatment Upcoming Encounters Date Type Department Care Team (Late st Contact Info) Description 09/25/2024 2:00 PM SALES AND MARKETING INTERN Appointment [facility] [address] [facility] [place] [address] Zayra Powell, BACTERIOLOGIST SOIL [address] [facility] [place] [address] 10/16/2024 3:30 PM SALES AND MARKETING INTERN Office Visit [facility] [address] [facility] [place] [address] Brit Gonzáles MD [address]19 [place] [address] documented as of this encounter Visit Diagnoses Not on filedocumented in this encounter Care Teams Grooming Assistant Relationship Specialty Start Date End Date Megan Infante MD [address] [facility] [place] [address] PCP - General FAMILY PRACTICE 04/06/16 Piyush Pandey MD [place] Automation Machine Builder CARDIOVASCULAR DISEASE 04/06/16 12/28/23 Sharmila Davis APRN, PICKER / PACKER-C [address] [facility] [address] [place] [phone] NURSE PRACTITIONER 01/04/17 04/03/24 Linda Block MD 6[address] [facility] [address] [place] [address] [place] Automation Machine Builder CLINICAL CARDIAC ELECTROPHYSIOLOGY 02/08/17 04/12/23 documented as of this encounter
--- OUTSIDE RECORDS SUMMARY | 2024-09-03 20:44 | XMS_ITS | Encounter Summary ---
Author Organization [facility] Address Critical access hospital6 [facility] [place] [address] [place] [address] Care Team Providers Care Steeple Jack Name Role Phone Piyush Pandey MD Unavailable Unavailabl e Megan Infante MD Primary Care Provider [phone] Sharmila Davis APRN TOUR SALES REPRESENTATIVE-C Unavailable Linda Block MD Unavailable [phone] Jeff Grace MD Unavailable Reason for Visit * Reason Comments Follow Up PAD Encounter Details Date Type Department Care Team (Late st Contact Info) Description 04/11/2019 1:30 PM CDT Office Visit [facility] [place] [address] [place] [address] Jeff Grace MD [address] [place], [place] [address] Follow Up (PAD) Social History Tobacco Use [...] st Contact Info) Description 09/25/2024 2:00 PM CITY CARRIER ASSISTANT Appointment [facility] [address] [place] [address] Zayra Powell FNP [address] [place] [address] 10/16/2024 3:30 PM CITY CARRIER ASSISTANT Office Visit [facility] [address] [place] [address] Brit Gonzáles MD 9 [place] [address] documented as of this encounter Visit Diagnoses Diagnosis Pain in both lower extremities- Primary Mixed hyperlipidemia Essential hypertension Unspecified essential hypertension documented in this encounter Care Teams Steeple Jack Relationship Specialty Start Date End Date Megan Infante MD [address] [facility] [address] [place] [address] PCP - General FAMILY PRACTICE 04/06/16 Piyush Pandey MD [place] Fry Cook CARDIOVASCULAR DISEASE 04/06/16 12/28/23 Sharmila Davis APRN, TOUR SALES REPRESENTATIVE-C [address] [facility] [address] [place] [address] NURSE PRACTITIONER 01/04/17 04/03/24 Linda Block MD [address] [facility] [address] [place] [address] Garrison Fry Cook CLINICAL CARDIAC ELECTROPHYSIOLOGY 02/08/17 04/12/23 Jeff Grace MD [address] [facility] [address] [place] [address] Consulting Physician INTERNAL MEDICINE 02/20/19 3 documented as of this encounter
--- OUTSIDE RECORDS SUMMARY | 2024-09-03 20:44 | XMS_ITS | Encounter Summary ---
Author Organization [facility] Address [facility]6 [facility] [place] [address] [place] [address] Care Team Providers Care Amusement Park Worker Name Role Phone Piyush Pandey MD Unavailable UnavailMegan Rodriguez MD Primary Care Provider [phone] Sharmila Davis APRN, HARDSCAPE FOREMAN-C Unavailable Encounter Details Date Type Department Care Team (Late Contact Info) Description 01/27/2017 Orders Only [facility] AT [facility] [address] [place] [address] Hayley Gee RN Social History [...] (Late Contact Info) Description 09/25/2024 2:00 PM DIGITAL PRESS OPERATOR Appointment [facility] [address] [place] [address] Zayra Powell, SENIOR ANALYST DEVELOPER [address] [place] [address] 10/16/2024 3:30 PM DIGITAL PRESS OPERATOR Office Visit [facility] [address] [place] [address] Brit Gonzáles MD [address] [place] [address] documented as of this encounter Visit Diagnoses Not on filedocumented in this encounter Care Teams Amusement Park Worker Relationship Specialty Start Date End Date Megan Infante MD [address] [place] [address] PCP - General FAMILY PRACTICE 04/06/16 Piyush Pandey MD [facility] Advisor CARDIOVASCULAR DISEASE 04/06/16 12/28/23 Sharmila Davis APRN, HARDSCAPE FOREMAN-C [address] [facility] [address] [place] [address] NURSE PRACTITIONER 01/04/17 04/03/24 documented as of this encounter
--- OUTSIDE RECORDS SUMMARY | 2024-09-03 20:44 | XMS_ITS | Encounter Summary ---
Author Organization [facility] Address [facility] [place] [address] [place] [address] Care Team Providers Care Chief Of Safety And Protection Name Role Phone Piyush Pandey MD Unavailable Unavailabl Megan Leos MD Primary Care Provider [phone] Sharmila Davis APRN, TERRAZZO SUPERVISOR-C Unavailable Linda Block MD Unavailable [phone] Encounter Details Date Type Department Care Team (Late st Contact Info) Description 04/28/2018 Orders Only [facility] AT [facility] [address] [place] [address] Piyush Padney MD Social History Tobacco Use Types Packs/Day [...] Contact Info) Description 09/25/2024 2:00 PM LEASE ATTENDANT Appointment [facility] [address] [place] [address] Zayra Powell, SPA MANAGER/ESTHETICIAN [address] [place] [address] 10/16/2024 3:30 PM LEASE ATTENDANT [facility] [address] [place] [address] Brit Gonzáles MD [address] [place] [address] documented as of this encounter Visit Diagnoses Diagnosis Aortic valve disease- Primary Aortic valve disorders LV dysfunction Heart disease, unspecified CHF (congestive heart failure) ([facility]) Congestive heart failure, unspecified Diabetes ([facility]) documented in this encounter Care Teams Chief Of Safety And Protection Relationship Specialty Start Date End Date Megan Infante MD [address] [place] [address] PCP - General FAMILY PRACTICE 04/06/16 Piyush Pandey MD [place] Machine Cloth Measurer CARDIOVASCULAR DISEASE 04/06/16 12/28/23 Sharmila Davis APRN, TERRAZZO SUPERVISOR-C [address] [facility] [address] [place] [address] NURSE PRACTITIONER 01/04/17 04/03/24 Linda Block MD [address] [facility] [address] [place] [address] [place] Machine Cloth Measurer CLINICAL CARDIAC ELECTROPHYSIOLOGY 02/08/17 04/12/23 documented as of this encounter
--- OUTSIDE RECORDS SUMMARY | 2024-09-03 20:44 | XMS_ITS | Encounter Summary ---
Author Organization [facility] Address [facility]6 [facility] [address] [place] [address] Care Team Providers Care Outpatient Admitting Clerk Name Role Phone Piyush Pandey MD Unavailable Unavailabl e Megan Infante MD Primary Care Provider [phone] Sharmila Davis APRN IRRIGATION SERVICE TECHNICIAN-C Unavailable Linda Block MD Unavailable [phone] Reason for Visit * Reason Onset Date Comments Appointment Request 12/20/2018 Encounter Details Date Type Department Care Team (Late st Contact Info) Description 12/20/2018 Telephone [facility] [address] [place] [address] Piyush Pandey MD Appointment Request [...] AM CDT Received call from Kasandra with [employer] called asking for an appt for pt due to sob and edema. Appt scheduled. documented in this encounter Plan of Treatment Upcoming Encounters Date Type Department Care Team (Late st Contact Info) Description 09/25/2024 2:[address] [facility] [address] [place] [address] Zayra Powell, NAVAL AIRCREWMAN HELICOPTER [address] [place] [address] 10/16/2024 3:30 PM INTAKE MAN Office Visit [facility] [address] [place] [address] Brit Gonzáles MD [address], [place] [address] documented as of this encounter Visit Diagnoses Not on filedocumented in this encounter Care Teams Outpatient Admitting Clerk Relationship Specialty Start Date End Date Megan Infante MD [address] [place] [address] PCP - General FAMILY PRACTICE 04/06/16 Piyush Pandey MD [place] Bargain Table Clerk CARDIOVASCULAR DISEASE 04/06/16 12/28/23 Sharmila Davis APRN, IRRIGATION SERVICE TECHNICIAN-C [address] [facility] [address] [place] [address] NURSE PRACTITIONER 01/04/17 04/03/24 Linda Block MD [address] [facility] [address] [place] [address] [place] Bargain Table Clerk CLINICAL CARDIAC ELECTROPHYSIOLOGY 02/08/17 04/12/23 documented as of this encounter
--- OUTSIDE RECORDS SUMMARY | 2024-09-03 20:44 | XMS_ITS | Encounter Summary ---
Author Organization [facility] Address [address] [place] [address]. [place] [address] [place] [address] Care Team Providers Care Library Aide Name Role Phone Piyush Pandey MD Unavailable UnavailMegan Rodriguez MD Primary Care Provider [phone] Sharmila Davis APRN, RADAR MECHANIC-C Unavailable Reason for Visit * Reason Onset Date Comments Information 01/08/2017 cancelled holter appt Encounter Details Date Type Department Care Team (Late st Contact Info) Description 01/08/2017 Telephone [facility] AT [facility] [address] [place] [address] Linda Block MD [address] [facility] [address] [place] [address] Information (cancelled holter appt) Social [...] of this encounter Progress Notes * Theresa hO RN - 01/11/2017 8:01 AM CDT Ok, [...] st Contact Info) Description 09/25/2024 2:00 PM DESIGN AGENT Appointment [facility] [address] [place] [address] Zayra Powell, [facility] [address] [place] [address] 10/16/2024 3:30 PM DESIGN AGENT Office Visit [facility] [address] [place] [address] Brit Gonzáles MD [address] [place] [address] documented as of this encounter Visit Diagnoses Not on filedocumented in this encounter Care Teams Library Aide Relationship Specialty Start Date End Date Megan Infante MD [address] [place] [address] PCP - General FAMILY PRACTICE 04/06/16 Piyush Pandey MD [place] Publicity Manager CARDIOVASCULAR DISEASE 04/06/16 12/28/23 Sharmila Davis, DANNY, RADAR MECHANIC-C [address] [phone] NURSE PRACTITIONER 01/04/17 04/03/24 documented as of this encounter
--- OUTSIDE RECORDS SUMMARY | 2024-09-03 20:44 | XMS_ITS | Encounter Summary ---
Author Organization [facility] Address [facility] [place] [address] [place] [address] Care Team Providers Care Executive Director Of Nursing Name Role Phone Piyush Pandey MD Unavailable Unavailabl e Megan Infante MD Primary Care Provider [phone] Sharmila Davis APRN CHIROPRACTOR ASSISTANT-C Unavailable [phone] Linda Block MD Unavailable [phone] Reason for Visit * Reason Onset Date Comments Results 02/19/2017 Encounter Details Date Type Department Care Team (Late st Contact Info) Description 02/19/2017 Telephone [facility] [address] [place] [address] Piyush Pandey MD Results Social [...] symptoms, hewould prefer to be seen in [place] on 03/18 , reminder sent * Lavern Marley - 02/19/2017 11:01 AM CDT Pt called asking for results of recent echo. Pt can be reached at [phone] or [phone]. documented in this encounter Plan of Treatment Upcoming Encounters Date Type Department Care Team (Late st Contact Info) Description 09/25/2024 2:00 PM FARM ASSISTANT Appointment [facility] [address] [place] [address] Zayra Powell, MEDICAL RADIATION DOSIMETRIST [address] [place] [address] 10/16/2024 3:30 PM FARM ASSISTANT Office Visit [facility] [facility] [address] [place] [phone] Brit Gonzáles MD [address] [place] [address] documented as of this encounter Visit Diagnoses Not on filedocumented in this encounter Care Teams Executive Director Of Nursing Relationship Specialty Start Date End Date Megan Infante MD [address] [facility] [address] [place] [phone] PCP - General FAMILY PRACTICE 04/06/16 Piyush Pandey MD [place] Crystal Cutter CARDIOVASCULAR DISEASE 04/06/16 12/28/23 Sharmila Davis APRN, CHIROPRACTOR ASSISTANT-C [address] [facility] [address] [place] [address] NURSE PRACTITIONER 01/04/17 04/03/24 Linda Block MD [address] [place] [address] [place] [address] [place] Watch Crystal Cutter CLINICAL CARDIAC ELECTROPHYSIOLOGY 02/08/17 04/12/23 documented as of this encounter
--- OUTSIDE RECORDS SUMMARY | 2024-09-03 20:44 | XMS_ITS | Encounter Summary ---
Author Organization [facility] Address [facility]6 [facility] [place] [address] [place] [address] Care Team Providers Care Raw Silk Grader Name Role Phone Piyush Pandey MD Unavailable Unavailabl Megan Leos MD Primary Care Provider [phone] Sharmila Davis APRN SUPERVISOR BONDING-C Unavailable Linda Block MD Unavailable [phone] Reason for Visit * Reason Onset Date Comments Medication 12/23/2018 Encounter Details Date Type Department Care Team (Late st Contact Info) Description 12/23/2018 Telephone [facility] [address] [place] [address] Piyush Pandey MD Medication Social [...] Contact Info) Description 09/25/2024 2:00 PM BRIQUETTE MAKER Appointment [facility] [address] [place] [address] Zayra Powell, LABORER/KEY MAN [address] [place] [address] 10/16/2024 3:30 PM BRIQUETTE MAKER Office Visit [facility] [address] [facility] [place] [address] Brit Gonzáles MD [address] [place] [address] documented as of this encounter Visit Diagnoses Not on filedocumented in this encounter Care Teams Raw Silk Grader Relationship Specialty Start Date End Date Megan Infante MD [address] [facility] [place] [address] PCP - General FAMILY PRACTICE 04/06/16 Piyush Pandey MD [place] Tipple Operator CARDIOVASCULAR DISEASE 04/06/16 12/28/23 Sharmila Davis APRN, SUPERVISOR BONDING-C [address] [facility] [address] [place] [address] NURSE PRACTITIONER 01/04/17 04/03/24 Linda Block MD [address] [facility] [address] [place] [address] [place] Tipple Operator CLINICAL CARDIAC ELECTROPHYSIOLOGY 02/08/17 04/12/23 documented as of this encounter
--- OUTSIDE RECORDS SUMMARY | 2024-09-03 20:44 | XMS_ITS | Encounter Summary ---
Author Organization [facility] Address [facility] [place] [address] [place] [address] Care Team Providers Care Clinical Specialist Medical Device Name Role Phone Piyush Pandey MD Unavailable Unavailabl e Megan Infante MD Primary Care Provider [phone] Sharmila Davis APRN, BASKET GRADER-C Unavailable Linda Block MD Unavailable [phone] Encounter Details Date Type Department Care Team (Late st Contact Info) Description 01/04/[address] [facility] [address] [place], [place] [address] Sharmila Davis APRN, BASKET GRADER-C [address] [facility] [address] [place] [address] Social History Tobacco Use Types Packs/Day Years [...] st Contact Info) Description 09/25/2024 2:00 PM AERONAUTICAL ENGINEERING TEACHER Appointment [facility] [address] [place] [address] Zayra Powell, WATER RESOURCE ENGINEERING SPECIALIST [address] [address] 10/16/2024 3:30 PM AERONAUTICAL ENGINEERING TEACHER Office Visit [facility] [address] [facility] [place] [address] Brit Gonzáles MD [address] [place] [address] documented as of this encounter Visit Diagnoses Diagnosis Other chest pain documented in this encounter Care Teams Clinical Specialist Medical Device Relationship Specialty Start Date End Date Megan Infante MD [address] [place] [address] PCP - General FAMILY PRACTICE 04/06/16 Piyush Pandey MD [place] Test Lead Application Testing CARDIOVASCULAR DISEASE 04/06/16 12/28/23 Sharmila Davis APRN, BASKET GRADER-C [address] [facility] [address] [place] [address] NURSE PRACTITIONER 01/04/17 04/03/24 Linda Block MD [address] [facility] [address] [place] [address] [place]rell Test Lead Application Testing CLINICAL CARDIAC ELECTROPHYSIOLOGY 02/08/17 04/12/23 documented as of this encounter
--- OUTSIDE RECORDS SUMMARY | 2024-09-03 20:44 | XMS_ITS | Encounter Summary ---
Author Organization [facility] Address [address] [place] [address]. [place] [address] [place] [address] Care Team Providers Care Film Rental Clerk Name Role Phone Piyush Pandey MD Unavailable Unavailabl e Megan Infante MD Primary Care Provider [phone] Sharmila Davis APRN, LANDING GEAR MECHANIC-C Unavailable Linda Block MD Unavailable [phone] Jeff Grace MD Unavailable Encounter Details Date Type Department Care Team (Late st Contact Info) Description 02/24/2019 Abstract [facility] [address] [place] [address] Jeff Grace MD [address] [place] [address] Social History Tobacco Use Types [...] Contact Info) Description 09/25/2024 2:00 PM SENIOR MANAGER QUALITY ASSURANCE Appointment [facility] [address] [place] [address] Andre Zayra K, AIR BATTLE MANAGER [address] [place] [address] 10/16/2024 3:30 PM SENIOR MANAGER QUALITY ASSURANCE Office Visit [facility] [address] [facility] [place] [address] Brit Gonzáles MD [address] [place] [address] documented as of this encounter Visit Diagnoses Not on filedocumented in this encounter Care Teams Film Rental Clerk Relationship Specialty Start Date End Date Megan Infante MD [address] [facility] [place] [phone] PCP - General FAMILY PRACTICE 04/06/16 Piyush Pandey MD [place] Director Enterprise Sales CARDIOVASCULAR DISEASE 04/06/16 12/28/23 Sharmila Davis, DANNY, LANDING GEAR MECHANIC-C [address] [facility] [address] [place] [address] NURSE PRACTITIONER 01/04/17 04/03/24 Linda Block MD [address] [facility] [address] [place] [address] [place] Director Enterprise Sales CLINICAL CARDIAC ELECTROPHYSIOLOGY 02/08/17 04/12/23 Jeff Grace MD [address] [facility] [address] [address] Consulting Physician INTERNAL MEDICINE 02/20/19 6 3 documented as of this encounter
--- OUTSIDE RECORDS SUMMARY | 2024-09-03 20:44 | XMS_ITS | Encounter Summary ---
Author Organization [facility] Address [facility] [place] [address] [place] [address] Care Team Providers Care Market Survey Representative Name Role Phone Piyush Pandey MD Unavailable Unavailabl e Megan Infante MD Primary Care Provider [phone] Sharmila Davis APRN FILM COMPOSER-C Unavailable Linda Block MD Unavailable [phone] Jeff Grace MD Unavailable Zaki Ortiz MD Unavailable [phone] Concetta Acevedo MD Unavailable [phone] Jeff Grace MD Unavailable Brit Gonzáles MD Unavailable Encounter Details Date Type Department Care Team (Late st Contact Info) Description 11/06/2017 Abstract [facility] [address] [place] [address] , Generic Conversion, Social History Tobacco Use [...] Contact Info) Description 09/25/2024 2:00 PM AIRLINE RESERVATION AGENT Appointment [facility] [address] [place] [address] Zayra Powell, ENERGY CONSERVATION SPECIALIST [address] [place] [address] 10/16/2024 3:30 PM AIRLINE RESERVATION AGENT Office Visit [facility] [address] [place] [address] Brit Gonzáles MD [address] [place], [place] [address] documented as of this encounter Visit Diagnoses Not on filedocumented in this encounter Additional Health Concerns Infection Onset Date Last Indicated Resolved Time COVID-19 Rule Out 03/02/2020 03/02/2020 03/03/2020 8:23 PM CDT COVID-19 Rule Out 07/03/2020 07/03/2020 07/04/2020 11:25 PM AIRLINE RESERVATION AGENT COVID-19 Rule Out 09/07/2020 09/07/2020 09/08/2020 5:52 PM AIRLINE RESERVATION AGENT COVID-19 Rule Out 10/05/2020 10/05/2020 10/06/2020 11:37 AM AIRLINE RESERVATION AGENT COVID-19 Rule Out 02/08/2021 02/08/2021 02/08/2021 9:06 PM CDT COVID-19 Rule Out 01/24/2022 01/24/2022 01/24/2022 6:41 PM CDT COVID-19 Rule Out 01/04/2023 01/04/2023 01/04/2023 10:12 AM CDT documented as of this encounter Care Teams Market Survey Representative Relationship Specialty Start Date End Date Megan Infante MD [address] [place] [phone] PCP - General FAMILY PRACTICE 04/06/16 Piyush Pandey MD [place] Jewel Oliving Machine Operator CARDIOVASCULAR DISEASE 04/06/16 12/28/23 Sharmila Davis APRN, FILM COMPOSER-C [address] [phone] NURSE PRACTITIONER 01/04/17 04/03/24 Linda Block MD [address] [place] [phone] [place] Jewel Oliving Machine Operator CLINICAL CARDIAC ELECTROPHYSIOLOGY 02/08/17 04/12/23 Jeff Grace MD [address] [place] [phone] Consulting Physician INTERNAL MEDICINE 02/20/19 3 Zaki Ortiz MD [address] [place] [phone] Consulting Physician PULMONARY DISEASE 07/12/19 Concetta Acevedo MD [address] [place] [address] Surgeon NEUROLOGICAL SURGERY 12/16/22 Jeff Grace MD [address] [place] [address] Consulting Physician INTERNAL MEDICINE 02/11/23 Brit Gonzáles MD [address] [place], [place] [address] Consulting Physician CARDIOVASCULAR DISEASE 12/29/23 documented as of this encounter
--- OUTSIDE RECORDS SUMMARY | 2024-09-03 20:44 | XMS_ITS | Encounter Summary ---
Author Organization [facility] Address [facility] [place] [address] [place] [address] Care Team Providers Care Singer Songwriter Name Role Phone Piyush Pandey MD Unavailable Unavailabl Megan Leos MD Primary Care Provider [phone] Sharmila Davis APRN, MANAGER VAN-C Unavailable Linda Block MD Unavailable [phone] Encounter Details Date Type Department Care Team (Late st Contact Info) Description 03/04/2017 Orders Only [facility] [address] [place] [address] Piyush Pandey MD Social History [...] st Contact Info) Description 09/25/2024 2:00 PM STORE PROTECTION SPECIALIST Appointment [facility] [address] [place] [address] Zayra Powell, AUTISM TEACHER [address] [place] [address] 10/16/2024 3:30 PM STORE PROTECTION SPECIALIST Office Visit [facility] [address] [place] [address] Brit Gonzáles MD [address] [place] [address] documented as of this encounter Procedures Procedure Name Priority Date/Time Associated Diagnosis Comments MAGNESIUM Routine 03/25/2017 LV dysfunction Essential hypertension 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 Permanent atrial fibrillation ([facility] HHS/HCC) CMP (ABSTRACTED LAB) Routine 03/04/2017 BASIC METABOLIC PANEL Routine 03/04/2017 LV dysfunction Essential hypertension 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 Permanent atrial fibrillation ([facility] HHS/HCC) documented in this encounter Results * [...] Unspecified essential hypertension 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 Permanent atrial fibrillation ([facility]) Atrial fibrillation documented in this encounter Care Teams Singer Songwriter Relationship Specialty Start Date End Date Megan Infante MD [address] [facility] [place] [address] PCP - General FAMILY PRACTICE 04/06/16 Piyush Pandey MD [place] Exercise Equipment Repair Technician CARDIOVASCULAR DISEASE 04/06/16 12/28/23 Sharmila Davis APRN, MANAGER VAN-C [address] [facility] [address] [place] [address] NURSE PRACTITIONER 01/04/17 04/03/24 Linda Block MD [address] [facility] [facility] [address] [place] [address] [place] Exercise Equipment Repair Technician CLINICAL CARDIAC ELECTROPHYSIOLOGY 02/08/17 04/12/23 documented as of this encounter
--- OUTSIDE RECORDS SUMMARY | 2024-09-03 20:44 | XMS_ITS | Encounter Summary ---
Author Organization [facility] Address [address] [place] [address]. [place] [address] [place] [address] Care Team Providers Care Artist Manager Name Role Phone Piyush Pandey MD Unavailable [facility] Megan Leos MD Primary Care Provider [phone] Sharmila Davis APRN, DIRECTOR OF CARDIOLOGY-C Unavailable Reason for Visit * Reason Onset Date Comments Results 01/27/2017 Encounter Details Date Type Department Care Team (Late st Contact Info) Description 01/27/2017 Telephone [facility] [address] [place] [address] Piyush Pandey MD Results Social [...] st Contact Info) Description 09/25/2024 2:00 PM DRAIN TILER Appointment [facility] [address] [place] [address] Zayra Powell, NAILER OPERATOR [address] [place], [place] [address] 10/16/2024 3:30 PM DRAIN TILER Office Visit [facility] [address] [place] [address] Brit Gonzáles MD [address] [place], [place] [address] documented as of this encounter Visit Diagnoses Not on filedocumented in this encounter Care Teams Artist Manager Relationship Specialty Start Date End Date Megan Infante MD [address] [place] [address] PCP - General FAMILY PRACTICE 04/06/16 Piyush Pandey MD [place] Atmospheric Physics Professor CARDIOVASCULAR DISEASE 04/06/16 12/28/23 Sharmila Davis APRN, DIRECTOR OF CARDIOLOGY-C [address] [facility] [address] [place] [address] NURSE PRACTITIONER 01/04/17 04/03/24 documented as of this encounter
--- OUTSIDE RECORDS SUMMARY | 2024-09-03 20:44 | XMS_ITS | Encounter Summary ---
Author Organization [facility] Address [facility] [place] [address] [place] [address] Care Team Providers Care Personal Care Attendant Name Role Phone Piyush Pandey MD Unavailable Unavailabl e eMgan Infante MD Primary Care Provider [phone] Sharmila Davis APRN LOADER HELPER SORTING YARD-C Unavailable Linda Block MD Unavailable [phone] Jeff Grace MD Unavailable Reason for Visit * Reason Onset Date Comments Breathing Problem 05/02/2019 Encounter Details Date Type Department Care Team (Late st Contact Info) Description 05/02/2019 Telephone [facility] [address] [place] [address] Piyush Pandey MD Breathing Problem [...] and he is able to come to [facility] on Wednesday, will get echo and clinic with Sharmila at 1100. * Lavern Nuñez Ayaka - 05/02/2019 12:25 PM CDT Pt called stating he is having issues with shortness of breath. Has an appt on 06/01/19. He can be reached at [phone]. documented in this encounter Plan of Treatment Upcoming Encounters Date Type Department Care Team (Late st Contact Info) Description 09/25/2024 2:00 PM MOONER Appointment [facility] [address] [facility] [place] [address] Zayra Powell, CDA TEACHER [address] [place] [address] 10/16/2024 3:30 PM MOONER Office Visit [facility] [address] [place], [place] [address] [address] Brit Gonzáles MD [address] [place] [address] documented as of this encounter Visit Diagnoses Not on filedocumented in this encounter Care Teams Personal Care Attendant Relationship Specialty Start Date End Date Megan Infante MD [address] [facility] [place] [address] PCP - General FAMILY PRACTICE 04/06/16 Piyush Pandey MD [place] Seasonal Recruiter CARDIOVASCULAR DISEASE 04/06/16 12/28/23 Sharmila Davis, BURRING WHEEL OPERATOR, LOADER HELPER SORTING YARD-C [address] [place] [address] [place] [address] NURSE PRACTITIONER 01/04/17 04/03/24 Linda Block MD [address] [facility] [address] [place] [address] [phone] [place] Seasonal Recruiter CLINICAL CARDIAC ELECTROPHYSIOLOGY 02/08/17 04/12/23 Jeff Grace MD [address] [facility] [address] [place] [address] Consulting Physician INTERNAL MEDICINE 02/20/19 3 documented as of this encounter
--- OUTSIDE RECORDS SUMMARY | 2024-09-03 20:44 | XMS_ITS | Encounter Summary ---
Author Organization [facility] Address [address] [place] [address]. [place] [address] [place] [address] Care Team Providers Care Bicycle Designer Name Role Phone Piyush Pandey MD Un[facility] Megan Leos MD Primary Care Provider [phone] Sharmila Davis APRN, SAP SD ANALYST-C Unavailable Linda Block MD Unavailable [phone] Encounter Details Date Type Department Care Team (Late st Contact Info) Description 11/30/2017 Abstract [facility] CONVERSION [address] [place] [address] [place] [address] [place] [phone] Social History Tobacco Use Types Packs/Day Years [...] (Late Contact Info) Description 09/25/2024 2:00 PM ALFALFA DEHYDRATOR OPERATOR Appointment [facility] [address] [place] [address] Zayra Powell, BLOWING WEASAND [address] [place] [address] 10/16/2024 3:30 PM ALFALFA DEHYDRATOR OPERATOR Office Visit [facility] [place] [address] Brit Gonzáles MD [address] [place] [address] documented as of this encounter Procedures Procedure Name Priority Date/Time Associated Diagnosis Comments URINALYSIS Routine 11/30/2017 1:30 PM CDT URINE BACTERIA CULTURE Routine 11/30/2017 1:30 PM CDT documented in this encounter Results * CULTURE URINE (11/30/2017 1:30 PM CDT) SPEC DESCRIPTION URINE CLEAN CATCH 11/30/2017 1:[address] [facility] SPECIAL REQUESTS NO SPECIAL REQUEST 11/30/2017 1:[address] [facility] CULTURE RESULT FEW CONTAMINANTS 11/21 4:47 AM CDT [facility] URINE SPECIMEN OBTAINED BY CLEAN CATCH PROCEDURE / Unknown 11/30/2017 1:30 PM CDT 11/30/2017 1:43 PM CDT us Generic Conversion Md LANDRY MICROBIOLOGY - GENERAL ORDERABLES Final Result [facility] [address] [place] [address], [place] [phone] [facility] [address] [place] [address], * (ABNORMAL) URINALYSIS (11/30/2017 1:30 PM CDT) COLOR (U) STRAW 11/30/2017 1:[address] [facility] TRANSPARENCY CLEAR 11/30/2017 1:[address] [facility] SPECIFIC GRAVITY (U) 1.005 1.000 - 1.025 11/30/2017 1:[address] [facility] Comment:LESS THAN OR EQUAL T O U PH 5.5 5.0 - 8.0 11/30/2017 1:[address] [facility] LEUKOCYTES (U) NEGATIVE NEGATIVE 11/30/2017 1:[address] [facility] NITRITES NEGATIVE NEGATIVE 11/30/2017 1:[address] [facility] PROTEIN (U) NEGATIVE NEGATIVE 11/30/2017 1:[address] [facility] URINE GLUCOSE TRACE(A) NEGATIVE 11/30/2017 1:[address] [facility] KETONES MG/DL (U) NEGATIVE NEGATIVE 11/30/2017 1:[address] [facility] UROBILINOGEN 0.2 <1.0 EU/DL 11/30/2017 1:[address] [facility] BILIRUBIN (U) NEGATIVE NEGATIVE 11/30/2017 1:[address] [facility] BLOOD (U) NEGATIVE NEGATIVE 11/30/2017 1:[address] [facility] WBC/HPF 0-5 0 - 5 /HPF 11/30/2017 1:[address] [facility] EPI/HPF OCCASIONAL /LPF 11/30/2017 1:[address] [facility] 11/30/2017 1:30 PM CDT 11/30/2017 1:43 PM CDT us Generic Conversion Md LANDRY URINE ORDERABLES Final Result [facility] [address] [place], [place] [address] [phone] documented in this encounter Visit Diagnoses Diagnosis Nodular prostate without lower urinary tract symptoms Nodular prostate without urinary obstruction documented in this encounter Care Teams Bicycle Designer Relationship Specialty Start Date End Date Megan Infante MD [address] [facility] [place] [phone] PCP - General FAMILY PRACTICE 04/06/16 Piyush Pandey MD [place] Credit Clerk CARDIOVASCULAR DISEASE 04/06/16 12/28/23 Sharmila Davis, DANNY, SAP SD ANALYST-C [address] [facility] [address] [place] [address] NURSE PRACTITIONER 01/04/17 04/03/24 Linda Block MD [address] [facility] [address] [place] [address] [place] Credit Clerk CLINICAL CARDIAC ELECTROPHYSIOLOGY 02/08/17 04/12/23 documented as of this encounter
--- OUTSIDE RECORDS SUMMARY | 2024-09-03 20:44 | XMS_ITS | Encounter Summary ---
Author Organization [facility] Address [facility] 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 S/P aortic valve replacement with bioprosthetic valve Procedures USE ECHOCARDIOGRAM W CON USE ECHOCARDIOGRAM Amauri Pandey MD Referral ID Status Reason Start Date Expiration Date Visits Re quested Visits Authorized [id number] Closed 05/02/2019 06/01/2020 1 1 Encounter Details Date Type Department Care Team (Latest Contact Info) Description 05/05/2019 9:48 AM CDT - 05/05/2019 11:49 AM CDT Hospital Encounter [facility] Non Invasive Cardiology - [facility] [address] [place] [address] Amauri Pandey MD Discharge Disposition: Home or [...] st Contact Info) Description 09/25/2024 2:00 PM ELECTROENCEPHALOGRAPH TECHNICIAN Appointment 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 St.Date: ?? 05/05/2019 ? Refer.: ??[id number] ROBERT Exam Time: 10:04:00 AM ? Study [...] 05/08/2019 Echocardiography Report Pat.Name: OBIE SIMS Pat.ID: [id number] St.Date: 05/05/2019 Refer.MD: [id number], AMAURI PANDEY Exam Time: 10:04:00 AM Study Type:ECHO W/CONTRAST COMPLETE Height: 170.18cm Weight: 102.06kg BSA: 2.13 m2 Age: 12 1955,63Y Sex: MALE HR: 86 bpm Sonogrphr: Keegan Carlin [facility] Pat. 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 S/P aortic valve [...] mL documented in this encounter Care Teams Mechanical Specialist Relationship Specialty Start Date End Date Megan Infante MD [address] [facility] [place] [phone] PCP - General FAMILY PRACTICE 04/06/16 Amauri Pandey MD [employer] Legal Assistant CARDIOVASCULAR DISEASE 04/06/16 12/28/23 Sharmila Davis APRN, TANDEM MILL STICKER-C [address] [facility] [address] [place] [address] NURSE PRACTITIONER 01/04/17 04/03/24 Linda Block MD [address] [facility] [address] [place] [address] [employer] Legal Assistant CLINICAL CARDIAC ELECTROPHYSIOLOGY 02/08/17 04/12/23 Jeff Grace MD [address] [place] [address] Consulting Physician INTERNAL MEDICINE 02/20/19 3 documented as of this encounter
--- OUTSIDE RECORDS SUMMARY | 2024-09-03 20:44 | XMS_ITS | Encounter Summary ---
Author Organization [facility] Address [facility] [place] [address] [place] [address] Care Team Providers Care Trolley Collector Name Role Phone Piyush Pandey MD Unavailable Unavailabl Megan Leos MD Primary Care Provider [phone] Sharmila Davis APRN, INTELLIGENCE OPERATIONS-C Unavailable Reason for Visit * Reason Comments Follow Up chest pain Encounter Details Date Type Department Care Team (Latest Contact Info) Description 01/04/2017 9:00 AM CDT Office Visit [facility] 1ST FLOOR [address] [place], [place] [address] Sharmila Davis APRN, INTELLIGENCE OPERATIONS-C [address] [facility] [address] [place] [address] Follow Up (chest pain) Social History Tobacco [...] - 01/04/2017 9:00 AM CDT [address] [address] [place] [address] PATIENT FOLLOW-UP VISIT FROM: The Office of [...] Final Diagnoses/Impression: 1. 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 Chest discomfort documented in this encounter Results * (ABNORMAL) PROTHROMBIN TIME, VENOUS (01/04/2017 11:03 AM CDT) PROTIME 32.7(H) 11.6 - 14.3 SEC 01/04/2017 10:16 AM CDT [facility] INR 3.1(H) 0.9 - 1.1 01/04/2017 10:16 AM CDT [facility] 01/04/2017 11:0 3 AM CDT 01/04/2017 10:04 AM CDT us Sharmila Davis APRN, INTELLIGENCE OPERATIONS-C LABORATORY Final Result Performing Organization Address [facility] Co de Phone Number [facility] [address] [place] [address], [phone] * D-DIMER, QUANTITATIVE (01/04/2017 11:03 AM CDT) [facility] D-DIMER 0.37 <0.50 MCG/ML FEU 01/04/2017 10:18 AM CDT [facility] EXCLUSION STATEMENT CUT-OFF FOR EXCLUSION OF VENOUS THROMBOEMBOLISM AND PULMONARY EMBOLISM IS LESS THAN 0.5 mcg/ml FEU. 01/04/2017 9:50 AM CDT [facility] PLASMA SPECIMEN / Unknown 01/04/2017 11:03 AM CDT 01/04/2017 10:04 AM CDT us Sharmila Davis APRN INTELLIGENCE OPERATIONS-C LABORATORY Final Result Performing Organization Address [facility] Co de Phone Number [facility] [address] [place] [address], [place] [phone] * BNP (01/04/2017 11:03 AM CDT) [facility] B TYPE NATRIURETIC PEPTIDE 92 0 - 100 PG/ML 01/04/2017 10:42 AM CDT [facility] WHOLE BLOOD SPECIMEN / Unknown 01/04/2017 11:03 AM CDT 01/04/2017 10:04 AM CDT us Sharmila Davis APRN INTELLIGENCE OPERATIONS-C LABORATORY Final Result Performing Organization Address [facility] Co de Phone Number [facility] [address] [place] [address], [place] [phone] * (ABNORMAL) BASIC METABOLIC PANEL (01/04/2017 11:03 AM CDT) [facility] SODIUM S/P/B 137 135 - 147 MMOL/L 01/04/2017 10:35 AM CDT [facility] POTASSIUM S/P/B 4.9 3.5 - 5.0 MMOL/L 01/04/2017 10:35 AM CDT [facility] CHLORIDE S/P/B 104 98 - 107 MMOL/L 01/04/2017 10:35 AM CDT [facility] CO2 24.7 22 - 29 MMOL/L 01/04/2017 10:35 AM CDT [facility] GLUCOSE 160(H) 70 - 109 MG/DL 01/04/2017 10:35 AM CDT [facility] BUN 24 8 - 26 MG/DL 01/04/2017 10:35 AM CDT [facility] CREATININE S/P/B 1.20 0.70 - 1.30 MG/DL 01/04/2017 10:35 AM CDT [facility] CALCIUM S/P/B 9.4 8.8 - 10.0 MG/DL 01/04/2017 10:35 AM CDT [facility] EGFR NON-AFR. AMER. 61 >60 ML/MIN/1.7 3 M2 01/04/2017 10:35 AM CDT [facility] EGFR AFR. AMER. 74 >60 ML/MIN/1.7 3 M2 01/04/2017 10:35 AM CDT [facility] ANION GAP 8.3 MMOL/L 01/04/2017 10:35 AM CDT [facility] OSMOLALITY (CALC) 281 MOSM/KG 01/04/2017 10:35 AM CDT [facility] PLASMA SPECIMEN / Unknown 01/04/2017 11:03 AM CDT 01/04/2017 10:04 AM CDT us Sharmila Davis APRN, INTELLIGENCE OPERATIONS-C LABORATORY Final Result [facility] [address] [place] [address], [id number] * ELECTROCARDIOGRAM (01/04/2017) Narrative Luda Clements I, RUBBER PRESS OPERATOR - 01/04/2017 See results in cardio perfect Sharmila Davis APRN, INTELLIGENCE OPERATIONS-C PROCEDURES-ORDERABLE NO CHARGE Final Result documented in this encounter Visit Diagnoses Diagnosis 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 ([facility])- Primary Chest discomfort Other chest pain Orthopnea S/P AVR Heart valve replaced by other means LV dysfunction Heart disease, unspecified Essential hypertension Unspecified essential hypertension Permanent atrial fibrillation ([facility]) Atrial fibrillation Encounter for long-term current use of medication documented in this encounter Care Teams Trolley Collector Relationship Specialty Start Date End Date Megan Infante MD [address] [facility] [address] [place] [address] PCP - General FAMILY PRACTICE 04/06/16 Piyush Pandey MD [place] Shoe Stitcher Odd CARDIOVASCULAR DISEASE 04/06/16 12/28/23 Sharmila Davis APRN, INTELLIGENCE OPERATIONS-C [address] [facility] [address] [place] [address] NURSE PRACTITIONER 01/04/17 04/03/24 documented as of this encounter
--- OUTSIDE RECORDS SUMMARY | 2024-09-03 20:44 | XMS_ITS | Encounter Summary ---
Author Organization [facility] Address [address] [place] [address]. [place] [address] [place] [address] Care Team Providers Care Buffing Wheel Presser Name Role Phone Piyush Pandey MD Unavailable Unavailabl Megan Leos MD Primary Care Provider [phone] Sharmila Davis APRN DIRECTOR OF MATH-C Unavailable Linda Block MD Unavailable [phone] Reason for Visit * Reason Comments Follow Up CHF Encounter Details Date Type Department Care Team (Late st Contact Info) Description 03/18/2017 3:00 PM CDT Office Visit [facility] AT [address] [address] Piyush Pandey MD Follow Up; [...] ( dry weight 200 lbs ) Index Ivorian Related??topics Atrial Fibrillation DESOUZA POINTS ?? Atrial [...] healthcare provider's instructions for treatment. Developed by [employer]. Adult Advisor 2017.1 published by [employer]. Last modified: 2016-06-15 Last reviewed: 2016-06-15 This content is reviewed periodically and is subject to change as new health information becomes available. The information is intended to inform and educate and is not a replacement for medical evaluation, advice, diagnosis or treatment by a healthcare professional. References Adult Advisor 2017.1 Index Copyright ?? 2017 [employer], a division of [employer]. All rights reserved. documented in this encounter [...] type II 7. Coronary artery disease involving [place] coronary artery of [place] heart without angina pectoris 8. Carotid disease, bilateral 9. Permanent atrial fibrillation 10. Nonrheumatic aortic valve stenosis 11. Chronic obstructive pulmonary disease, unspecified COPD type 12. Arthritis 13. Chronic anticoagulation [place] Documentation Completed: Coronary Artery Disease Referring Provider: No ref. provider found PCP: MEGAN INFANTE TION DESIGN AND ANALYSIS MANAGER * Piyush Pandey MD - 03/18/2017 12:00 AM CDT HISTORY OF PRESENT ILLNESS: Mendez is seen in the [facility] today for a scheduled followup [...] should he have any questions or problems. TION DESIGN AND ANALYSIS MANAGER documented in this encounter Plan of Treatment Upcoming Encounters Date Type Department Care Team (Late st Contact Info) Description 09/25/2024 2:00 PM SOLUTION DESIGN AND ANALYSIS MANAGER Appointment [facility] [address] [facility] [place] [address] Zayra Powell, [facility] [address] [address] [place] [address] 10/16/2024 3:30 PM SOLUTION DESIGN AND ANALYSIS MANAGER Office Visit [facility] [address] [place] [address] Brit Gonzáles MD [address] [place] [address] documented as of this encounter Procedures Procedure Name Priority Date/Time Associated Diagnosis Comments ELECTROCARDIOGRAM (NON MIDMA RK ACQUIRED) Routine 03/18/2017 Chronic atrial fibrillation ([facility]) documented in this encounter Results * ELECTROCARDIOGRAM (03/18/2017) Piyush Pandey MD PROCEDURES-ORDERABLE NO DEONTE RGE Final Result documented in this encounter Visit Diagnoses Diagnosis Chronic atrial fibrillation ([facility])- Primary Atrial fibrillation S/P aortic valve replacement with bioprosthetic valve Heart valve replaced by other means Coronary artery disease involving [place] coronary artery of [place] heart without angina pectoris LV dysfunction Heart disease, unspecified Essential hypertension Unspecified essential hypertension Mixed hyperlipidemia Carotid disease, bilateral ([facility]) Unspecified disorders of arteries and arterioles Chronic obstructive pulmonary disease, unspecified COPD type ([facility]) Chronic anticoagulation Encounter for long-term (current) use of anticoagulants documented in this encounter Care Teams Buffing Wheel Presser Relationship Specialty Start Date End Date Megan Infante MD [address] [facility] [phone] PCP - General FAMILY PRACTICE 04/06/16 Piyush Pandey MD [place] Knot Cutter CARDIOVASCULAR DISEASE 04/06/16 12/28/23 Sharmila Davis, MATERIALS INTERN, DIRECTOR OF MATH-C [address] [facility] [address] [place] [phone] NURSE PRACTITIONER 01/04/17 04/03/24 Linda Block MD [address] [facility] [address] [place] [phone] [place] Knot Cutter CLINICAL CARDIAC ELECTROPHYSIOLOGY 02/08/17 04/12/23 documented as of this encounter
--- OUTSIDE RECORDS SUMMARY | 2024-09-03 20:44 | XMS_ITS | Encounter Summary ---
Author Organization [facility] Address [facility] [place] [address] [place] [address] Care Team Providers Care Sisal Operator Name Role Phone Piyush Pandey MD Unavailable Unavailabl e Megan Infante MD Primary Care Provider [phone] Sharmila Davis APRN SENIOR TAX ANALYST-C Unavailable Linda Block MD Unavailable [phone] Jeff Grace MD Unavailable Encounter Details Date Type Department Care Team (Late st Contact Info) Description 05/02/2019 Orders Only [facility] [address] [place] [phone] Piyush Pandey MD Social History Tobacco Use [...] st Contact Info) Description 09/25/2024 2:00 PM BIRTH CERTIFICATE CLERK Appointment [facility] [address] [place] [address] Zayra Powell, COMMERCIAL CARPET INSTALLER [address] [place] [address] 10/16/2024 3:30 PM BIRTH CERTIFICATE CLERK Office Visit [facility] [address] [place] [phone] Brit Gonzáles MD 6[address] [place] [address] documented as of this encounter Visit Diagnoses Diagnosis Coronary artery disease involving [place] coronary artery of [place] heart without angina pectoris- Primary S/P aortic valve replacement with bioprosthetic valve Heart valve replaced by other means documented in this encounter Care Teams Sisal Operator Relationship Specialty Start Date End Date Megan Infante MD [address] [place] [address] PCP - General FAMILY PRACTICE 04/06/16 Piyush Pandey MD [place] Electronic Prepress System Operator CARDIOVASCULAR DISEASE 04/06/16 12/28/23 Sharmila Davis, MUCK FARMER, SENIOR TAX ANALYST-C [address] [facility] [address] [place] [address] NURSE PRACTITIONER 01/04/17 04/03/24 Linda Block MD [address] [facility] [address] [place] [address] [place] Electronic Prepress System Operator CLINICAL CARDIAC ELECTROPHYSIOLOGY 02/08/17 04/12/23 Jeff Grace MD [address] [facility] [address] [place] [address] Consulting Physician INTERNAL MEDICINE 02/20/19 6 3 documented as of this encounter
--- OUTSIDE RECORDS SUMMARY | 2024-09-03 20:44 | XMS_ITS | Encounter Summary ---
Author Organization [facility] Address [address] [place] [address]. [place] [address] [place] [address] Care Team Providers Care Basket Maker Name Role Phone Piyush Pandey MD, Amy E MD Primary Care Provider [phone] Reason for Referral * Imaging (Routine) - Completed Specialty Diagnoses / Procedures Referred By Contac t Referred To Contact CARDIOLOGY Diagnoses Permanent atrial fibrillation ([facility]) Procedures Holter Monitor 24 Hr Piyush Pandey MD [facility] [address] [place] [phone] Phone: tel: Referral ID Status Reason Start Date Expiration Date V isits Requested Visits Authorized [id number] Completed 12/31/2016 01/31/2018 1 1 Reason for Visit * Reason Onset Date Comments Atrial Fibrillation 12/31/2016 Encounter Details Date Type Department Care Team (Late st Contact Info) Description 12/31/2016 Telephone [facility] [address] [place] [phone] Piyush Pandey MD Atrial Fibrillation Social History [...] EP dr. Pt can be reached at [phone]. Message forwarded to Dr. Block's office. documented in this encounter Plan of Treatment Upcoming Encounters Date Type Department Care Team (Late st Contact Info) Description 09/25/2024 2:00 PM FOOD EQUIPMENT SERVICE TECHNICIAN Appointment [facility] [address] [place] [address] Zayra Powell FNP [address] [place] [address] 10/16/2024 3:30 PM FOOD EQUIPMENT SERVICE TECHNICIAN Office Visit [facility] [address] [place] [phone] Brit Gonzáles MD [address] [place] [address] Scheduled Orders Name Type Priority Associated Diagnoses Orde r Schedule Holter Monitor 24 Hr EKG Routine Permanent atrial fibrillation ([facility]) Expected: 01/04/2017, Expires: 12/31/2017 documented as of this encounter Visit Diagnoses Diagnosis Permanent atrial fibrillation (CMS/HCC HHS/HCC)- Primary Atrial fibrillation documented in this encounter Care Teams Basket Maker Relationship Specialty Start Date End Date Megan Infante MD [address] [place] [address] PCP - General FAMILY PRACTICE 04/06/16 Piyush Pandey MD [place] Electroplating Technician CARDIOVASCULAR DISEASE 04/06/16 12/28/23 documented as of this encounter
--- OUTSIDE RECORDS SUMMARY | 2024-09-03 20:44 | XMS_ITS | Encounter Summary ---
Author Organization [facility] Address [facility]6 [facility] [place] [address] [place] [address] Care Team Providers Care Ux Ui Designer Name Role Phone Piyush Pandey MD Unavailable Unavailabl Megan Leos MD Primary Care Provider [phone] Sharmila Davis APRN, PUBLIC ADDRESS SYSTEMS MECHANIC-C Unavailable [phone] Linda Block MD Unavailable [phone] Encounter Details Date Type Department Care Team (Late st Contact Info) Description 04/21/2018 Abstract [facility] [address] [place] [phone] Abstract, Doc [facility] Social History Tobacco [...] Contact Info) Description 09/25/2024 2:00 PM VIDEO LIBRARY ASSISTANT Appointment [facility] [address] [place] [address] Zayra Powell, DISTANCE EDUCATION TEACHER [address] [place] [address] 10/16/2024 3:30 PM VIDEO LIBRARY ASSISTANT [facility] [address] [place] [address] Brit Gonzáles MD [address] [place] [address] documented as of this encounter Visit Diagnoses Not on filedocumented in this encounter Care Teams Ux Ui Designer Relationship Specialty Start Date End Date Megan Infante MD [address] [place] [address] PCP - General FAMILY PRACTICE 04/06/16 Piyush Pandey MD [place] Iron Installer CARDIOVASCULAR DISEASE 04/06/16 12/28/23 Sharmila Davis, AUTO BODY ESTIMATOR, PUBLIC ADDRESS SYSTEMS MECHANIC-C [address] [facility] [address] [place] [phone] NURSE PRACTITIONER 01/04/17 04/03/24 Linda Block MD [address] [facility] [address] [place] [address] [place] Iron Installer CLINICAL CARDIAC ELECTROPHYSIOLOGY 02/08/17 04/12/23 documented as of this encounter
--- OUTSIDE RECORDS SUMMARY | 2024-09-03 20:44 | XMS_ITS | Encounter Summary ---
Author Organization [facility] Address [address] [place] [address]. [place] [address] [place] [address] Care Team Providers Care Senior Supply Chain Analyst Name Role Phone Piyush Pandey MD Unavailable UnavailMegan Rodriguez MD Primary Care Provider [phone] Sharmila Davis APRN, ANALYTICAL ENGINEER-C Unavailable [phone] Reason for Visit * Reason Onset Date Comments Stress Test 01/05/2017 Encounter Details Date Type Department Care Team (Late st Contact Info) Description 01/05/2017 Telephone [facility] [address] [place] [address] Piyush Pandey MD Stress Test [...] echocardiogram scheduled for 01/25/17 @ 8:00 in [place]. Will send letter with date, time and location of testing. documented in this encounter Plan of Treatment Upcoming Encounters Date Type Department Care Team (Late st Contact Info) Description 09/25/2024 2:00 PM STATISTICAL METHODS TEACHER Appointment [facility] [address] [place] [address] Zayra Powell, WINDER CONTORT OPERATOR [address] [place] [phone] 10/16/2024 3:30 PM STATISTICAL METHODS TEACHER Office Visit [facility] [address] [place] [address] Brit Gonzáles MD [address] [place], [place] [address] documented as of this encounter Visit Diagnoses Not on filedocumented in this encounter Care Teams Senior Supply Chain Analyst Relationship Specialty Start Date End Date Megan Infante MD [address] [facility] [place] [address] PCP - General FAMILY PRACTICE 04/06/16 Piyush Pandey MD [place] Eviscerator CARDIOVASCULAR DISEASE 04/06/16 12/28/23 Sharmila Davis APRN, ANALYTICAL ENGINEER-C [address] [facility] [address] [place] [address] NURSE PRACTITIONER 01/04/17 04/03/24 documented as of this encounter
--- OUTSIDE RECORDS SUMMARY | 2024-09-03 20:44 | XMS_ITS | Encounter Summary ---
Author Organization [facility] Address [address] [place] [address]. [place] [address] [place] [address] Care Team Providers Care Supervisor Yard Name Role Phone Piyush Pandey MD, Amy E MD Primary Care Provider [phone] Reason for Visit * Reason Comments Follow Up Coronary Artery Disease Encounter Details Date Type Department Care Team (Latest Contact Info) Description 09/30/2016 12:00 PM SUPERVISOR CYTOLOGY Office Visit [facility] AT [address] [place] [address] Piyush Pandey MD Follow Up; Coronary Artery [...] Comments Blood Pressure 147/75 10/02/2016 3:22 PM SUPERVISOR CYTOLOGY Pulse 62 10/02/2016 3:22 PM SUPERVISOR CYTOLOGY Temperature - - Respiratory Rate 20 10/02/2016 3:22 PM SUPERVISOR CYTOLOGY Oxygen Saturation 97% 10/02/2016 3:22 PM SUPERVISOR CYTOLOGY Inhaled Oxygen Concentration - - Weight 89.4 kg (197 lb) 10/02/2016 3:22 PM SUPERVISOR CYTOLOGY Height 167.6 cm (5' 6 ) 10/02/2016 3:22 PM SUPERVISOR CYTOLOGY Body Mass Index 31.8 10/02/2016 3:22 PM SUPERVISOR CYTOLOGY documented in this encounter Patient Instructions * Patient Instructions* Hayley Gee, YUNI - 10/02/2016 3:33 PM SUPERVISOR CYTOLOGY Images from the original note were not included. 1. Add colchicine 0.6 mg BID 2. Xray of finger 3. RTC in 6 months 4. Lipids with PCP Index Kiswahili All??languages Related??topics Coronary Artery Disease DESOUZA POINTS [...] the health of your heart. Developed by [employer]. Adult Advisor 2015.3 published by [employer]. Last modified: 2016-01-22 Last reviewed: 2016-01-21 This content is reviewed periodically and is subject to change as new health information becomes available. The information is intended to inform and educate and is not a replacement for medical evaluation, advice, diagnosis or treatment by a healthcare professional. References Adult Advisor 2015.3 Index Copyright ?? 2016 [employer], a division of [employer]. All rights reserved. RVISOR CYTOLOGY RVISOR CYTOLOGY RVISOR CYTOLOGY documented in this encounter Progress Notes * Piyush Pandey MD - 10/17/2016 5:59 PM CST HISTORY OF PRESENT ILLNESS: Mr. Lay is seen in the [facility] today for a scheduled followup [...] should he have any questions or problems. RVISOR CYTOLOGY * Piyush Pandey MD - 09/30/2016 12:00 [...] No ref. provider found PCP: MEGAN INFANTE RVISOR CYTOLOGY documented in this encounter Plan of Treatment Upcoming Encounters Date Type Department Care Team (Late st Contact Info) Description 09/25/2024 2:00 PM SUPERVISOR CYTOLOGY Appointment [facility] [address] [facility] [place] [address] Zayra Powell, POULTRY FARMER MEAT [address] [place] [address] 10/16/2024 3:30 PM SUPERVISOR CYTOLOGY Office Visit [facility] [address] [place] [address] Brit Gonzáles MD [address] [place] [address] documented as of this encounter Visit Diagnoses Diagnosis S/P aortic valve replacement with bioprosthetic valve- Primary Heart valve replaced by other means LV dysfunction Heart disease, unspecified Permanent atrial fibrillation (CMS/HCC HHS/HCC) Atrial fibrillation Coronary artery disease involving [place] coronary artery of [place] heart without angina pectoris Carotid disease, bilateral (CMS/HCC) Unspecified disorders of arteries and arterioles Essential hypertension Unspecified essential hypertension Mixed hyperlipidemia Chronic obstructive pulmonary disease, unspecified COPD type (CMS/HCC HHS/HCC) documented in this encounter Care Teams Supervisor Yard Relationship Specialty Start Date End Date Megan Infante MD [address] [place] [phone] PCP - General FAMILY PRACTICE 04/06/16 Piyush Pandey MD [place] Dinkey Engineer CARDIOVASCULAR DISEASE 04/06/16 12/28/23 documented as of this encounter
--- OUTSIDE RECORDS SUMMARY | 2024-09-03 20:44 | XMS_ITS | Encounter Summary ---
Author Organization [facility] Address [address] [place] [address]. [place] [address] [place] [address] Care Team Providers Care Angle Shear Operator Name Role Phone Piyush Pandey MD, Amy E MD Primary Care Provider [phone] Encounter Details Date Type Department Care Team (Late Contact Info) Description 06/16/2016 Scan [facility] [address] [place] [phone] Scanned, Documents Social History Tobacco Use [...] (Late Contact Info) Description 09/25/2024 2:00 PM GAUGE MACHINE OPERATOR Appointment [facility] [address] [place] [address] Zayra Powell, DAMAGE ADJUSTER [address] [place] [address] 10/16/2024 3:30 PM GAUGE MACHINE OPERATOR Office Visit [facility] [address] [place] [phone] Brit Gonzáles MD [address] [place] [address] documented as of this encounter Visit Diagnoses Not on filedocumented in this encounter Care Teams Angle Shear Operator Relationship Specialty Start Date End Date Megan Infante MD [address] [facility] [address] PCP - General FAMILY PRACTICE 04/06/16 Piyush Pandey MD [place] Flamer Sealer CARDIOVASCULAR DISEASE 04/06/16 12/28/23 documented as of this encounter
--- OUTSIDE RECORDS SUMMARY | 2024-09-03 20:44 | XMS_ITS | Encounter Summary ---
Author Organization [facility] Address [facility] [place] [address] [place] [address] Care Team Providers Care Geopolitics Teacher Name Role Phone Piyush Pandey MD Unavailable Unavailabl e Megan Infante MD Primary Care Provider [phone] Sharmila Davis APRN PROGRAMMER ANALYST-C Unavailable Linda Block MD Unavailable [phone] Reason for Visit * Reason Onset Date Comments Results 05/31/2018 Encounter Details Date Type Department Care Team (Late st Contact Info) Description 05/31/2018 Telephone [facility] [address] [place] [address] Piyush Pandey MD Results Social [...] st Contact Info) Description 09/25/2024 2:00 PM ENTERPRISE ACCOUNT EXECUTIVE Appointment [facility] [address] [place] [address] Zayra Powell, INSTRUCTOR BUSINESS EDUCATION [address] [place] [address] 10/16/2024 3:30 PM ENTERPRISE ACCOUNT EXECUTIVE Office Visit [facility] [facility] [address] [place] [address] Brit Gonzáles MD [address] [place], [place] [phone] documented as of this encounter Visit Diagnoses Not on filedocumented in this encounter Care Teams Geopolitics Teacher Relationship Specialty Start Date End Date Megan Infante MD [address] [facility] [place] [address] PCP - General FAMILY PRACTICE 04/06/16 Piyush Pandey MD [place] Chief Solution Architect CARDIOVASCULAR DISEASE 04/06/16 12/28/23 Sharmila Davis APRN, PROGRAMMER ANALYST-C [address] [facility] [address] [place] [address] NURSE PRACTITIONER 01/04/17 04/03/24 Linda Block MD [address] [facility] [address] [place] [phone] [place] Chief Solution Architect CLINICAL CARDIAC ELECTROPHYSIOLOGY 02/08/17 04/12/23 documented as of this encounter
--- OUTSIDE RECORDS SUMMARY | 2024-09-03 20:44 | XMS_ITS | Encounter Summary ---
Author Organization [facility] Address [address] [place] [address]. [place] [address] [place] [address] Care Team Providers Care Trial Attorney Name Role Phone Piyush Pandey MD Unavailable UnavailMegan Rodriguze MD Primary Care Provider [phone] Sharmila Davis APRN, NP-C Unavailable Reason for Visit * Reason Onset Date Comments Chest Pain 01/05/2017 Encounter Details Date Type Department Care Team (Late st Contact Info) Description 01/05/2017 Telephone [facility] [address] [place] [address] Piyush Pandey MD Chest Pain [...] stopped the Coreg after his d/c from [facility] in late April. He was not taking it inOctober when he saw Dr Callahan and Dr Infante's office did not stop the med. Will see if Sharmila wants to restart and will order RNST & echo in [place], documented in this encounter Plan of Treatment Upcoming Encounters Date Type Department Care Team (Late st Contact Info) Description 09/25/2024 2:00 PM CONTRACT TECHNICIAN Appointment [facility] [address] [place] [address] Zayra Powell, DIRECTOR OF SOCIAL WORK [address] [place] [address] 10/16/2024 3:30 PM CONTRACT TECHNICIAN Office Visit [facility] [address] [place] [phone] Brit Gonzáles MD [address] [place], [place] [address] documented as of this encounter Visit Diagnoses Not on filedocumented in this encounter Care Teams Trial Attorney Relationship Specialty Start Date End Date Megan Infante MD [address] [place] [address] PCP - General FAMILY PRACTICE 04/06/16 Piyush Pandey MD [place] Clinical Psychology Teacher CARDIOVASCULAR DISEASE 04/06/16 12/28/23 Sharmila Davis, DANNY, CABLE REPAIRER-C [address] [facility] [address] [place] [phone] NURSE PRACTITIONER 01/04/17 04/03/24 documented as of this encounter
--- OUTSIDE RECORDS SUMMARY | 2024-09-03 20:44 | XMS_ITS | Encounter Summary ---
Author Organization [facility] Address [facility] [place] [address] [place] [address] Care Team Providers Care Running Specialist Name Role Phone Piyush Pandey MD Unavailable Unavailabl Megan Leos MD Primary Care Provider [phone] Sharmila Davis APRN, NP-C Unavailable [phone] Linda Block MD Unavailable [phone] Jeff Grace MD Unavailable Reason for Visit * Reason Comments Follow Up Breathing Problem Encounter Details Date Type Department Care Team (Latest Contact Info) Description 12/22/2018 3:00 PM CDT Office Visit [facility] AT [address] [address] Piyush Pandey MD Follow Up; [...] II (CMS/HCC) 9. Coronary artery disease involving [place] coronary artery of [place] heart without angina pectoris 10. Chronic obstructive pulmonary disease, unspecified COPD type (CMS/HCC) 11. Chronic anticoagulation 12. Bilateral carotid artery disease, unspecified type (CMS/HCC) 13. Arthritis Referring Provider: No ref. provider found PCP: MEGAN INFANTE MD * Piyush Pandey MD - 12/22/2018 12:00 AM CDT HISTORY OF PRESENT ILLNESS: Mr. Lay is seen in the [facility] today for a scheduled followup [...] st Contact Info) Description 09/25/2024 2:00 PM ACCOUNTS PAYABLE ANALYST Appointment [facility] [address] [place] [address] Zayra Powell, PATTERN WORKER [address] [place], [place] [address] 10/16/2024 3:30 PM ACCOUNTS PAYABLE ANALYST Office Visit [facility] [address] [place] [address] Brit Gonzáles MD [address] [place], [place] [address] documented as of this encounter Visit Diagnoses Diagnosis S/P aortic valve replacement with bioprosthetic valve- Primary Heart valve replaced by other means Permanent atrial fibrillation ([facility]/HCC HHS/HCC) Atrial fibrillation S/P ablation of atrial fibrillation Other postprocedural status Coronary artery disease involving [place] coronary artery of [place] heart without angina pectoris LV dysfunction Heart disease, unspecified Bilateral carotid artery disease, unspecified type (CMS/HCC) Essential hypertension Unspecified essential hypertension Mixed hyperlipidemia Chronic obstructive pulmonary disease, unspecified COPD type (CMS/HCC HHS/HCC) documented in this encounter Care Teams Running Specialist Relationship Specialty Start Date End Date Megan Infante MD [address] [place] [address] PCP - General FAMILY PRACTICE 04/06/16 Piyush Pandey MD [place] Dial Screw Assembler CARDIOVASCULAR DISEASE 04/06/16 12/28/23 Sharmila Davis APRN, MACHINE STONE POLISHER-C [address] [place] [address] [address] [place] [address] NURSE PRACTITIONER 01/04/17 04/03/24 Linda Block MD [address] [place] [address] [place] Dial Screw Assembler CLINICAL CARDIAC ELECTROPHYSIOLOGY 02/08/17 04/12/23 Jeff Grace MD [address] [place] [address] Consulting Physician INTERNAL MEDICINE 02/20/19 3 documented as of this encounter
--- OUTSIDE RECORDS SUMMARY | 2024-09-03 20:44 | XMS_ITS | Encounter Summary ---
Author Organization [facility] Address [facility]6 [facility] [place] [address] [place] [address] Care Team Providers Care Diagnostics Sales Developer Name Role Phone Piyush Pandey MD Unavailable Unavailabl e Megan Infante MD Primary Care Provider [phone] Sharmila Davis APRN, BOOK CUTTER-C Unavailable Linda Block MD Unavailable [phone] Jeff Grace MD Unavailable Encounter Details Date Type Department Care Team (Late st Contact Info) Description 02/20/2019 Abstract [facility] [address] [place] [address] Abstract, Doc Preve[place] Social History Tobacco Use [...] Contact Info) Description 09/25/2024 2:00 PM SALES PROMOTION MANAGER Appointment [facility] [address] [place] [address] Zayra Powell, PACKER DRIED BEEF [address] [place] [address] 10/16/2024 3:30 PM SALES PROMOTION MANAGER [facility] [address] [place] [address] Brit Gonzáles MD [address] [place] [address] documented as of this encounter Visit Diagnoses Not on filedocumented in this encounter Care Teams Diagnostics Sales Developer Relationship Specialty Start Date End Date Megan Infante MD [address] [place] [address] PCP - General FAMILY PRACTICE 04/06/16 Piyush Pandey MD [place] Firer Powerhouse CARDIOVASCULAR DISEASE 04/06/16 12/28/23 Sharmila Davis APRN, BOOK CUTTER-C 6[address] [facility] [address] [address] NURSE PRACTITIONER 01/04/17 04/03/24 Linda Block MD [address] [facility] [address] [address] [place] Fire[employer]house CLINICAL CARDIAC ELECTROPHYSIOLOGY 02/08/17 04/12/23 Jeff Grace MD [address]19 [facility] [address] [place] [address] Consulting Physician INTERNAL MEDICINE 02/20/19 3 documented as of this encounter
--- OUTSIDE RECORDS SUMMARY | 2024-09-03 20:44 | XMS_ITS | Encounter Summary ---
Author Organization [facility] Address [facility]6 [facility] [place] [address] [place] [address] Care Team Providers Care Steamer Tender Name Role Phone Piyush Pandey MD Unavailable Unavailabl e Megan Infante MD Primary Care Provider [phone] Sharmila Davis APRN NAIL PROFESSIONAL-C Unavailable Linda Block MD Unavailable [phone] Jeff Grace MD Unavailable Reason for Visit * Reason Onset Date Comments Appointment Request 02/20/2019 Encounter Details Date Type Department Care Team (Late st Contact Info) Description 02/20/[address] [facility] [address] [place] [address] Jeff Grace MD [address] [place] [address] Appointment Request Social History Tobacco [...] - 02/20/2019 11:18 AM CDT [facility]abn STELLA-claudication/Medicare/fax records to 833#/mailed paperwork. Appt 03/07/19 @2:[address] Grace, in [place]. documented in this encounter Plan of Treatment Upcoming Encounters Date Type Department Care Team (Late st Contact Info) Description 09/25/2024 2:00 PM PENS AND PENCILS DIPPER Appointment [facility] [address] [facility] [place] [address] Zayra Powell, SOLID WASTE COLLECTION WORKER 12[address] [place] [address] 10/16/2024 3:30 PM PENS AND PENCILS DIPPER Office Visit [facility] [address] [facility] [place] [address] Brit Gonzáles MD [address] [place], [place] [address] documented as of this encounter Visit Diagnoses Not on filedocumented in this encounter Care Teams Steamer Tender Relationship Specialty Start Date End Date Megan Infante MD [address] [facility] [address] [place] [address] PCP - General FAMILY PRACTICE 04/06/16 Piyush Pandey MD [place] Lead Quality Control Technician CARDIOVASCULAR DISEASE 04/06/16 12/28/23 Sharmila Davis APRN, NAIL PROFESSIONAL-C 619 [facility] [address] [place] [address] NURSE PRACTITIONER 01/04/17 04/03/24 Linda Block MD [address] [place] [address] [phone] [place] Lead Quality Control Technician CLINICAL CARDIAC ELECTROPHYSIOLOGY 02/08/17 04/12/23 Jeff Grace MD [address] [place] [address] Consulting Physician INTERNAL MEDICINE 02/20/19 3 documented as of this encounter
--- OUTSIDE RECORDS SUMMARY | 2024-09-03 20:44 | XMS_ITS | Encounter Summary ---
Author Organization [facility] Address [facility]6 [facility] [place] [address] [place] [address] Care Team Providers Care Teleprinter Installer Name Role Phone Piyush Pandey MD Unavailable Unavailabl e Megan Infante MD Primary Care Provider [phone] Sharmila Davis APRN, BROOMMAKING SUPERVISOR-C Unavailable Linda Block MD Unavailable [phone] Encounter Details Date Type Department Care Team (Late st Contact Info) Description 05/09/2018 Scan [facility] [address] [place] [address] Scanned, Documents Social History Tobacco [...] Contact Info) Description 09/25/2024 2:00 PM [address]ADUATE ADVISOR Appointment [facility] [address] [place] [address] Zayra Powell, OUTBOUND SALES AGENT [address] [place] [address] 10/16/2024 3:30 PM GRADUATE ADVISOR [facility] [address] [place] [address] Brit Gonzáles MD [address]19 [place] [address] documented as of this encounter Procedures Procedure Name Priority Date/Time Associated Diagnosis Comments USE ECHOCARDIOGRAM Routine 05/09/2018 Aortic stenosis documented in this encounter Results * USE ECHOCARDIOGRAM (05/09/2018) Anatomical Region Laterality Modality Cardiac Echocardiogram us Piyush Pandey MD ECHO Final Resul t documented in this encounter Visit Diagnoses Diagnosis Aortic stenosis Aortic valve disorders documented in this encounter Care Teams Teleprinter Installer Relationship Specialty Start Date End Date Megan Infante MD [address] [place] [address] PCP - General FAMILY PRACTICE 04/06/16 Piyush Pandey MD [place] Circuit Rider CARDIOVASCULAR DISEASE 04/06/16 12/28/23 Sharmila Davis APRN, BROOMMAKING SUPERVISOR-C [address] [facility] [address] [place] [address] NURSE PRACTITIONER 01/04/17 04/03/24 Linda Block MD 619 [facility] [address] [place] [address] [place] Circuit Rider CLINICAL CARDIAC ELECTROPHYSIOLOGY 02/08/17 04/12/23 documented as of this encounter
--- OUTSIDE RECORDS SUMMARY | 2024-09-03 20:44 | XMS_ITS | Encounter Summary ---
Author Organization [facility] Address [facility]6 [facility] [place] [address] [place] [address] Care Team Providers Care Wafer Machine Operator Name Role Phone Piyush Pandey MD Unavailable Unavailabl e Megan Infante MD Primary Care Provider [phone] Sharmila Davis APRN, NP-C Unavailable [phone] Linda Block MD Unavailable [phone] Jeff Grace MD Unavailable Reason for Referral * Imaging (Routine) - Closed Specialty Diagnoses / Procedures Referred By Contac t Referred To Contact CARDIOLOGY Diagnoses Bilateral carotid bruits Procedures USV CAROTID DUPLEX Jeff Pulido MD [address] [place] [address] Phone: tel: fax: Referral ID Status Reason Start Date Expiration Date Visits Re quested Visits Authorized [id number] Closed 03/07/2019 04/07/2020 1 1 * Imaging (Routine) - Closed Specialty Diagnoses / Procedures Referred By Contac t Referred To Contact CARDIOLOGY Diagnoses Pain in both lower extremities Procedures USV ART DUPLEX LOW Jeff Pulido MD [address] [place] [address] Phone: tel: fax: Referral ID Status Reason Start Date Expiration Date Visits Re quested Visits Authorized [id number] Closed 03/07/2019 04/07/2020 1 1 Reason for Visit * Reason Comments Consult claudication Encounter Details Date Type Department Care Team (Latest Contact Info) Description 03/07/2019 2:00 PM CDT Office Visit [facility] AT [address] [place] [address] Jeff Grace MD [address] [place] [address] Consult (claudication) Social History Tobacco Use Types [...] st Contact Info) Description 09/25/2024 2:00 PM TOBY MAKER Appointment [facility] [address] [place] [address] Zayra Powell, OPTICAL GOODS DRILLING MACHINE OPERATOR [address] [place] [address] 10/16/2024 3:30 PM TOBY MAKER Office Visit [facility] [address] [facility] [place] [address] Brit Gonzáles MD [address] [place] [address] documented as of this encounter Results * USV CAROTID DUPLEX ELZA (03/07/2019 4:12 PM CDT) Anatomical Region Laterality Modality Neck Ultrasound Jeff Grace MD VASC Final Result * USV ART DUPLEX LOW ELZA (03/07/2019 3:26 PM CDT) Anatomical Region Laterality Modality Extremity Ultrasound Result [facility] Jeff Grace MD [facility] Final Result documented in this encounter Visit Diagnoses Diagnosis Pain in both lower extremities- Primary Essential hypertension Unspecified essential hypertension Mixed hyperlipidemia Bilateral carotid bruits documented in this encounter Care Teams Wafer Machine Operator Relationship Specialty Start Date End Date Megan Infante MD [address] [facility] [place] [address] PCP - General FAMILY PRACTICE 04/06/16 Piyush Pandey MD [place] Digester Capper CARDIOVASCULAR DISEASE 04/06/16 12/28/23 Sharmila Davis APRN, LEAD RUBY ON RAILS DEVELOPER-C [address] [facility] [address] [place] [address] NURSE PRACTITIONER 01/04/17 04/03/24 Linda Block MD [address] [facility] [address] [place] [address] [place] Digester Capper CLINICAL CARDIAC ELECTROPHYSIOLOGY 02/08/17 04/12/23 Jeff Grace MD [address] [facility] [address] [place] [address] Consulting Physician INTERNAL MEDICINE 02/20/19 6 3 documented as of this encounter
--- OUTSIDE RECORDS SUMMARY | 2024-09-03 20:44 | XMS_ITS | Encounter Summary ---
Author Organization [facility] Address [facility]6 [facility] [place] [address] [place] [address] Care Team Providers Care Internet Marketing Assistant Name Role Phone Piyush Pandey MD Unavailable Unavailabl e Megan Infante MD Primary Care Provider [phone] Sharmila Davis APRN CERTIFIED NEURODIAGNOSTIC TECHNOLOGIST-C Unavailable [phone] Linda Block MD Unavailable [phone] Jeff Grace MD Unavailable Reason for Visit * Reason Comments Lab (SCAN) Ultrasound (SCAN) ERROR - DATE # [id number] Ultrasound (SCAN) Encounter Details Date Type Department Care Team (Late st Contact Info) Description 02/17/2019 Scan [facility] [facility] [address] [place] [address] Scanned, Documents Lab (SCAN); Ultrasound (SCAN) (ERROR - DATE # [id number]); Ultrasound (SCAN) Social History Tobacco Use Types [...] st Contact Info) Description 09/25/2024 2:00 PM TRANSMITTER ENGINEER Appointment [facility] [address] [place] [address] Zayra Powell, TRAFFIC MAINTENANCE SUPERVISOR [address] [place], [place] [address] 10/16/2024 3:30 PM TRANSMITTER ENGINEER Office Visit [facility] [address] [place] [address] Brit Gonzáles MD [address] [place] [address] documented as of this encounter Procedures Procedure [...] on filedocumented in this encounter Care Teams Internet Marketing Assistant Relationship Specialty Start Date End Date Megan Infante MD [address] [facility] [place] [address] PCP - General FAMILY PRACTICE 04/06/16 Piyush Pandey MD [place] Chief Lending Officer CARDIOVASCULAR DISEASE 04/06/16 12/28/23 Sharmila Davis APRN, CERTIFIED NEURODIAGNOSTIC TECHNOLOGIST-C [address] [facility] [address] [place] [address] NURSE PRACTITIONER 01/04/17 04/03/24 Linda Block MD [address] [place] [address] [place] Chief Lending Officer CLINICAL CARDIAC ELECTROPHYSIOLOGY 02/08/17 04/12/23 Jeff Grace MD [address] [place] [address] Consulting Physician INTERNAL MEDICINE 02/20/19 3 documented as of this encounter
--- OUTSIDE RECORDS SUMMARY | 2024-09-03 20:44 | XMS_ITS | Encounter Summary ---
Author Organization [facility] Address [address] [place] [address]. [place] [address] [place] [address] Care Team Providers Care Director Of Sales Name Role Phone Piyush Pandey MD Unavailable Unavailabl Megan Leos MD Primary Care Provider [phone] Sharmila Davis APRN, TREATMENT MANAGER-C Unavailable Linda Block MD Unavailable [phone] Encounter Details Date Type Department Care Team (Late st Contact Info) Description 10/26/[address] [facility] [address] [place] [address] Kilo Navarro MD [address] [place] [address] Social History Tobacco Use Types [...] st Contact Info) Description 09/25/2024 2:00 [address] MANAGER Appointment [facility] [address] [place] [address] Zayra Powell, INCISING MACHINE OPERATOR [address] [place] [address] 10/16/2024 3:30 PM PROMOTIONS MANAGER Office Visit [facility] [place] [address] Brit Gonzáles MD [address]19 [place] [address] documented as of this encounter Procedures Procedure Name Priority Date/Time Associated Diagnosis Comments H PYLORI UREASE Routine 10/26/2017 8:31 AM PROMOTIONS MANAGER GLUCOSE BLOOD, QNT Routine 10/26/2017 7: 51 AM PROMOTIONS MANAGER documented in this encounter Results * H PYLORI UREASE (10/26/2017 8:31 AM PROMOTIONS MANAGER) SPEC DESCRIPTION GASTRIC BIOPSY 10/26/2017 8:44 AM PROMOTIONS MANAGER [facility] SPECIAL REQUESTS NO SPECIAL REQUEST 10/26/2017 8:44 AM PROMOTIONS MANAGER [facility] DIRECT EXAM PRESUMPTIVE NEGATIVE FOR H. PYLORI 10/26/2017 12:49 PM PROMOTIONS MANAGER [facility] GASTRIC BIOPSY SPECIMEN / Unknown 10/26/2017 8:31 AM PROMOTIONS MANAGER 10/26/2017 8:48 AM PROMOTIONS MANAGER us Generic Conversion Md [facility] - GENERAL ORDERABLES Final Result Performing Organization Address City/State/[facility] Co de Phone Number [facility] [place] [address], * (ABNORMAL) GLUCOSE BLOOD, QNT (10/26/2017 7:51 AM PROMOTIONS MANAGER) GLUCOSE POC 222(H) 70 - 99 MG/DL 10/26/2017 7:54 AM PROMOTIONS MANAGER [facility] LAB ORDERS INTERFACE 10/26/2017 7:51 AM PROMOTIONS MANAGER 10/26/2017 7:54 AM PROMOTIONS MANAGER us Generic Conversion Md [facility] Final R esult [facility] LAB ORDERS INTERFACE US documented in this encounter Visit Diagnoses Diagnosis Encounter for screening for malignant neoplasm of colon Special screening for malignant neoplasms, colon documented in this encounter Care Teams Director Of Sales Relationship Specialty Start Date End Date Megan Infante MD [address] [facility] [place] [address] PCP - General FAMILY PRACTICE 04/06/16 Piyush Pandey MD [place] [employer] Director CARDIOVASCULAR DISEASE 04/06/16 12/28/23 Sharmila Davis, COUNTER SUPERVISOR, TREATMENT MANAGER-C [address] [facility] [address] [place] [address] NURSE PRACTITIONER 01/04/17 04/03/24 Linda Block MD 6[address] [facility] [address] [place] [address] [place] [facility] Director CLINICAL CARDIAC ELECTROPHYSIOLOGY 02/08/17 04/12/23 documented as of this encounter
--- OUTSIDE RECORDS SUMMARY | 2024-09-03 20:45 | XMS_ITS | Encounter Summary ---
Author Organization [facility] Address [facility]6 [facility] [place] [address] [place] [address] Care Team Providers Care Cavalry Officer Name Role Phone Piyush Pandey MD Unavailable UnavailMegan Rodriguez MD Primary Care Provider [phone] Sharmila Davis APRN, YARN CARRIER-C Unavailable Linda Block MD Unavailable [phone] Encounter Details Date Type Department Care Team (Latest Contact Info) Description 05/14/2016 Abstract [facility] Medical [facility] Social History Tobacco [...] Contact Info) Description 09/25/2024 2:00 PM MANAGER HOME IMPROVEMENT Appointment [facility] [address] [place] [address] Zayra Powell, METAL SHEET ROLLER OPERATOR [address] [place] [address] 10/16/2024 3:30 PM MANAGER HOME IMPROVEMENT Office Visit [facility] [address] [place] [address] Brit Gonzáles MD [address] [place] [address] documented as of this encounter Visit Diagnoses Not on filedocumented in this encounter Care Teams Cavalry Officer Relationship Specialty Start Date End Date Megan Infante MD [address] [facility] [place] [address] PCP - General FAMILY PRACTICE 04/06/16 Piyush Pandey MD [place] Erp Specialist CARDIOVASCULAR DISEASE 04/06/16 12/28/23 Sharmila Davis APRN, YARN CARRIER-C [address]19 [facility] [address] [place] [address] NURSE PRACTITIONER 01/04/17 04/03/24 Linda Block MD 6[address] [facility] [address] [address] [place] Erp Specialist CLINICAL CARDIAC ELECTROPHYSIOLOGY 02/08/17 04/12/23 documented as of this encounter
--- OUTSIDE RECORDS SUMMARY | 2024-09-03 20:45 | XMS_ITS | Encounter Summary ---
Author Organization [facility] Address [address] [place] [address]. [place] [address] [place] [address] Care Team Providers Care Skate Maker Name Role Phone Piyush Pandey MD [facility] Megan Bridges MD Primary Care Provider [phone] Encounter Details Date Type Department Care Team (Late st Contact Info) Description 04/22/2016 Scan [facility] [address] [place] [address] Scanned, Documents Social History Tobacco Use [...] (Late Contact Info) Description 09/25/2024 2:00 PM TEXTILE SCIENCE TECHNICIAN Appointment [facility] [address] [place] [address] Zayra Powell, SHIPPING AND RECEIVING OPERATOR [address] [place] [address] 10/16/2024 3:30 PM TEXTILE SCIENCE TECHNICIAN Office Visit [facility] [address] [place] [address] Brit Gonzáles MD [address] [place] [address] documented as of this encounter Visit Diagnoses Not on filedocumented in this encounter Care Teams Skate Maker Relationship Specialty Start Date End Date Megan Infante MD [address] [place] [address] PCP - General FAMILY PRACTICE 04/06/16 Piyush Pandey MD [place] Vessel Master CARDIOVASCULAR DISEASE 04/06/16 12/28/23 documented as of this encounter
--- OUTSIDE RECORDS SUMMARY | 2024-09-03 20:45 | XMS_ITS | Encounter Summary ---
Author Organization [facility] Address [facility] [place] [address] [place] [address] Care Team Providers Care Rivet Sorter Name Role Phone Piyush Pandey MD Unavailable Unavailabl Megan Leos MD Primary Care Provider [phone] Sharmila Davis APRN, MOLD RELEASE WORKER-C Unavailable [phone] Linda Block MD Unavailable [phone] Encounter Details Date Type Department Care Team (Late st Contact Info) Description 05/14/2016 Orders Only [place] [address] , Generic Conversion, Social History [...] (Late Contact Info) Description 09/25/2024 2:00 PM ENVIRONMENTAL COMPLIANCE INSPECTOR Appointment [facility] [address] [place] [address] Zayra Powell, FLOOR RENOVATOR [address] [place] [address] 10/16/2024 3:30 PM ENVIRONMENTAL COMPLIANCE INSPECTOR Office Visit [facility] [address] Brit Gonzáles MD [address] [place] [address] documented as of this encounter Procedures Procedure Name Priority Date/Time Associated Diagnosis Comments POCT GLUCOSE - VALLECILLO DOCKED DEVICE Routine 05/14/2016 5:33 AM CDT documented in this encounter Results * (ABNORMAL) POCT glucose (05/14/2016 5:33 AM CDT) GLUCOSE POC 197(H) 70 - 109 05/14/2016 5:37 AM CDT [facility] ORDERS INTERFACE WHOLE BLOOD SPECIMEN / Unknown 05/14/2016 5:33 AM CDT 05/14/2016 5:37 AM CDT us Generic Conversion Md LANDRY POCT ORDERABLES - DEVIC E Final Result [facility] ORDERS INTERFACE US documented in this encounter Visit Diagnoses Not on filedocumented in this encounter Care Teams Rivet Sorter Relationship Specialty Start Date End Date Megan Infante MD [address] [facility] [place] [address] PCP - General FAMILY PRACTICE 04/06/16 Piyush Pandey MD [place] [employer] Instructor CARDIOVASCULAR DISEASE 04/06/16 12/28/23 Sharmila Davis APRN, MOLD RELEASE WORKER-C [address] [facility] [address] [place] [address] NURSE PRACTITIONER 01/04/17 04/03/24 Linda Block MD [address] [facility] [address] [place] [address] [place] [employer] Instructor CLINICAL CARDIAC ELECTROPHYSIOLOGY 02/08/17 04/12/23 documented as of this encounter
--- OUTSIDE RECORDS SUMMARY | 2024-09-03 20:45 | XMS_ITS | Encounter Summary ---
Author Organization [facility] Address [facility] [place] [address] [place] [address] Care Team Providers Care Drapery Examiner Name Role Phone Piyush Pandey MD Unavailable Unavailabl Megan Leos MD Primary Care Provider [phone] Sharmila Davis APRN, EDGE STAINER-C Unavailable [phone] Linda Block MD Unavailable [phone] Encounter Details Date Type Department Care Team (Late st Contact Info) Description 05/15/2016 Orders [place] [address] , Generic Conversion, Social History [...] Contact Info) Description 09/25/2024 2:00 PM MANUFACTURING MAINTENANCE TECHNICIAN Appointment [facility] [address] [place] [address] Zayra Powell, FRONT END UI DEVELOPER [address] [place] [address] 10/16/2024 3:30 PM MANUFACTURING MAINTENANCE TECHNICIAN Office Visit [facility] [place] [address] Brit Gonzáles MD 6[address] [place] [address] documented as of this encounter Procedures Procedure Name Priority Date/Time Associated Diagnosis Comments POCT GLUCOSE - VALLECILLO DOCKED DEVICE Routine 05/15/2016 2:31 PM CDT documented in this encounter Results * (ABNORMAL) POCT glucose (05/15/2016 2:31 PM CDT) GLUCOSE POC 133(H) 70 - 109 05/15/2016 2:35 PM CDT [facility] ORDERS INTERFACE WHOLE BLOOD SPECIMEN / Unknown 05/15/2016 2:31 PM CDT 05/15/2016 2:34 PM CDT us Generic Conversion Md LANDRY POCT ORDERABLES - DEVIC E Final Result [facility] ORDERS INTERFACE US documented in this encounter Visit Diagnoses Not on filedocumented in this encounter Care Teams Drapery Examiner Relationship Specialty Start Date End Date Megan Infante MD [address] [facility] [place] [phone] PCP - General FAMILY PRACTICE 04/06/16 Piyush Pandey MD [place] [employer]pper CARDIOVASCULAR DISEASE 04/06/16 12/28/23 Sharmila Davis APRN, EDGE STAINER-C [address] [facility] 47 [place] [address] NURSE PRACTITIONER 01/04/17 04/03/24 Linda Block MD [address] [facility] [address] [place] [address] [employer] Clipper CLINICAL CARDIAC ELECTROPHYSIOLOGY 02/08/17 04/12/23 documented as of this encounter
--- OUTSIDE RECORDS SUMMARY | 2024-09-03 20:45 | XMS_ITS | Encounter Summary ---
Author Organization [facility] Address [facility] [place] [address] [place] [address] Care Team Providers Care Information Management Manager Name Role Phone Piyush Pandey MD Unavailable UnavailMegan Rodriguez MD Primary Care Provider [phone] Sharmila Davis APRN, DIRECTOR WEIGHTS AND MEASURES-C Unavailable Linda Block MD Unavailable [phone] Encounter Details Date Type Department Care Team (Latest Contact Info) Description 05/13/2016 Abstract [facility] Social History Tobacco Use [...] Contact Info) Description 09/25/2024 2:00 PM VENDING STAND SUPERVISOR Appointment [facility] [address] [place] [address] Zayra Powell, BOAT CREW DECK HAND [address] [place] [address] 10/16/2024 3:30 PM VENDING STAND SUPERVISOR Office Visit [facility] [address] [place] [address] Brit Gonzáles MD [address] [place] [address] documented as of this encounter Visit Diagnoses Not on filedocumented in this encounter Care Teams Information Management Manager Relationship Specialty Start Date End Date Megan Infante MD [address] [facility] [place] [address] PCP - General FAMILY PRACTICE 04/06/16 Piyush Pandey MD [employer] Speech Language Pathologist CARDIOVASCULAR DISEASE 04/06/16 12/28/23 Sharmila Davis APRN, DIRECTOR WEIGHTS AND MEASURES-C [address] [facility] [address] [place] [address] NURSE PRACTITIONER 01/04/17 04/03/24 Linda Block MD [address] [facility] [address] [address] [employer] Speech Language Pathologist CLINICAL CARDIAC ELECTROPHYSIOLOGY 02/08/17 04/12/23 documented as of this encounter
--- OUTSIDE RECORDS SUMMARY | 2024-09-03 20:45 | XMS_ITS | Encounter Summary ---
Author Organization [facility] Address [facility] [place] [address] [place] [address] Care Team Providers Care Tank Worker Name Role Phone Piyush Pandey MD Unavailable Unavailabl Megan Leos MD Primary Care Provider [phone] Sharmila Davis APRN, BRISKET PULLER-C Unavailable [phone] Linda Block MD Unavailable [phone] Encounter Details Date Type Department Care Team (Late st Contact Info) Description 05/14/2016 Orders Only [place] [address] , Generic Conversion, Social History [...] (Late Contact Info) Description 09/25/2024 2:00 PM DAY CAMP UNIT LEADER Appointment [facility] [address] [place] [address] Zayra Powell, FOREST RESOURCE SPECIALIST [address] [place] [address] 10/16/2024 3:30 PM DAY CAMP UNIT LEADER Office Visit [facility] [address] [place] [address] Brit Gonzáles MD 619 [place] [address] documented as of this encounter Procedures Procedure Name Priority Date/Time Associated Diagnosis Comments CBC W/DIFF AUTOMATED Routine 05/14/2016 3:35 AM CDT documented in this encounter Results * (ABNORMAL) CBC W/DIFF AUTOMATED (05/14/2016 3:35 AM CDT) WBC 10.6 4.0 - 10.8 x10'3/uL 05/14/2016 3:[address] [facility] RBC 3.45(L) 4.50 - 6.10 x10'6/uL 05/14/2016 3:[address] [facility] HGB 10.0(L) 13.0 - 18.0 G/DL 05/14/2016 3:[address] [facility] HCT 30.6(L) 37.0 - 52.0 % 05/14/2016 3:[address] [facility] MCV 88.7 78.0 - 100.0 FL 05/14/2016 3:[address] [facility] MCH 29.0 27.0 - 31.0 PG 05/14/2016 3:[address] [facility] MCHC 32.7(L) 33.0 - 36.0 G/DL 05/14/2016 3:[address] [facility] RDW 15.6(H) 11.5 - 14.5 % 05/14/2016 3:[address] [facility] PLT 200 150 - 350 x10'3/uL 05/14/2016 3:[address] [facility] MPV 10.3 7.4 - 10.4 FL 05/14/2016 3:[address] [facility] ABS. NEUTROPHILS TOTAL 9.21(H) 1.60 - 8.30 x10'3/uL 05/14/2016 3:[address] [facility] ABS. LYMPHOCYTES 0.48(L) 0.80 - 4.70 x10'3/uL 05/14/2016 3:[address] [facility] ABS. MONOCYTES 0.87 0.00 - 1.50 x10'3/uL 05/14/2016 3:[address] [facility] ABS. EOSINOPHILS 0.00 0.00 - 0.40 x10'3/uL 05/14/2016 3:[address] [facility] ABS. BASOPHILS 0.01 0.00 - 0.20 x10'3/uL 05/14/2016 3:[address] [facility] ABS. IMMATURE GRANULOCYTES 0.06(H) 0.00 - 0.03 x10'3/uL 05/14/2016 3:[address] [facility] ABS. NUCLEATED RBC'S 0.00 0.0 x10'3/uL 05/14/2016 3:[address] [facility] PLASMA SPECIMEN / Unknown 05/14/2016 3:35 AM CDT 05/14/2016 3:43 AM CDT us Generic Conversion Md LANDRY LABORATORY Final R esult [facility] [place] [place] [address], [id number] documented in this encounter Visit Diagnoses Not on filedocumented in this encounter Care Teams Tank Worker Relationship Specialty Start Date End Date Megan Infante MD [address] [facility] [place] [address] PCP - General FAMILY PRACTICE 04/06/16 Piyush Pandey MD [place] [employer]ion Installer CARDIOVASCULAR DISEASE 04/06/16 12/28/23 Sharmila Davis APRN, BRISKET PULLER-C [address] [facility] [address] [place] [phone] NURSE PRACTITIONER 01/04/17 04/03/24 Linda Block MD [address] [facility] [address] [place] [phone] [place] Cushion Installer CLINICAL CARDIAC ELECTROPHYSIOLOGY 02/08/17 04/12/23 documented as of this encounter
--- OUTSIDE RECORDS SUMMARY | 2024-09-03 20:45 | XMS_ITS | Encounter Summary ---
Author Organization [facility] Address [facility] [place] [address] [place] [address] Care Team Providers Care Poultry Barn Manager Name Role Phone Piyush Pandey MD Unavailable Unavailabl Megan Leos MD Primary Care Provider [phone] Sharmila Davis APRN, GEOSCIENCE TECHNICIAN-C Unavailable [phone] Linda Block MD Unavailable [phone] Encounter Details Date Type Department Care Team (Late st Contact Info) Description 05/17/2016 Orders Only [place] [address] , Generic Conversion, Social History [...] (Late Contact Info) Description 09/25/2024 2:00 PM QUALITY IMPROVEMENT ANALYST Appointment [facility] [address] [place] [address] Zayra Powell, ADMISSIONS RN [address] [place] [address] 10/16/2024 3:30 PM QUALITY IMPROVEMENT ANALYST Office Visit [facility] [address] [place] [address] Brit Gonzáles MD 619 [place] [address] documented as of this encounter Procedures Procedure Name Priority Date/Time Associated Diagnosis Comments BASIC METABOLIC PANEL TIMED 05/17/2016 4:16 AM CDT documented in this encounter Results * (ABNORMAL) BASIC METABOLIC PANEL (05/17/2016 4:16 AM CDT) SODIUM S/P/B 139 135 - 147 MMOL/L 05/17/2016 5:04 AM CDT [facility] POTASSIUM S/P/B 3.7 3.5 - 5.0 MMOL/L 05/17/2016 5:04 AM CDT [facility] CHLORIDE S/P/B 101 98 - 107 MMOL/L 05/17/2016 5:04 AM CDT [facility] CO2 30.1(H) 22 - 29 MMOL/L 05/17/2016 5:04 AM CDT [facility] GLUCOSE 183(H) 70 - 109 MG/DL 05/17/2016 5:04 AM CDT [facility] BUN 19 8 - 26 MG/DL 05/17/2016 5:04 AM CDT [facility] CREATININE S/P/B 1.14 0.70 - 1.30 MG/DL 05/17/2016 5:04 AM CDT [facility] CALCIUM S/P/B 9.3 8.8 - 10.0 MG/DL 05/17/2016 5:04 AM CDT [facility] EGFR NON-AFR. AMER. 65 >60 ML/MIN/1.7 3 M2 05/17/2016 5:04 AM CDT [facility] EGFR AFR. AMER. 79 >60 ML/MIN/1.7 3 M2 05/17/2016 5:04 AM CDT [facility] ANION GAP 7.9 MMOL/L 05/17/2016 5:04 AM CDT [facility] OSMOLALITY (CALC) 284 MOSM/KG 05/17/2016 5:04 AM CDT [facility] PLASMA SPECIMEN / Unknown 05/17/2016 4:16 AM CDT 05/17/2016 4:22 AM CDT us Generic Conversion Md LANDRY LABORATORY Final R esult [facility] [place] [place] [address], [id number] documented in this encounter Visit Diagnoses Not on filedocumented in this encounter Care Teams Poultry Barn Manager Relationship Specialty Start Date End Date Mgean Infante MD [address] [place] [phone] PCP - General FAMILY PRACTICE 04/06/16 Piyush Pandey MD [place] Senior Software Developer CARDIOVASCULAR DISEASE 04/06/16 12/28/23 Sharmila Davis, EXPERIMENTAL MECHANIC SPACECRAFT, GEOSCIENCE TECHNICIAN-C [address] [facility] [address] [place] [address] NURSE PRACTITIONER 01/04/17 04/03/24 Linda Block MD [address] [facility] [address] [place] [address] [place] Senior Software Developer CLINICAL CARDIAC ELECTROPHYSIOLOGY 02/08/17 04/12/23 documented as of this encounter
--- OUTSIDE RECORDS SUMMARY | 2024-09-03 20:45 | XMS_ITS | Encounter Summary ---
Author Organization [facility] Address [facility] [place] [place] [address] [place] [address] Care Team Providers Care Seam Taper Machine Name Role Phone Piyush Pandey MD Unavailable UnavailMegan Rodriguez MD Primary Care Provider [phone] Sharmila Davis APRN, BARBER-C Unavailable Linda Block MD Unavailable [phone] Encounter Details Date Type Department Care Team (Latest Contact Info) Description 05/13/2016 Abstract [facility] Shasih Philip MD [address] [id number] Social History Tobacco Use Types Packs/Day Years [...] st Contact Info) Description 09/25/2024 2:00 PM ACCOUNT RESOLUTION EXPERT Appointment [facility] [address] [place] [address] Zayra Powell, VIDEO EFFECTS EDITOR [address] [place] [address] 10/16/2024 3:30 PM ACCOUNT RESOLUTION EXPERT [facility] [address] [place] [address] [place] [address] Brit Gonzáles MD 619 [place] [address] documented as of this encounter Procedures Procedure Name Priority Date/Time Associated Diagnosis Comments ECG 12-LEAD Routine 05/13/2016 6:55 PM CDT XR CHEST PORTABLE Routine 05/13/2016 6:2 9 PM CDT documented in this encounter Results * ECG 12 lead (05/13/2016 6:55 PM CDT) 05/13/2016 6:55 PM CDT Narrative [facility] - 05/14/2016 2:15 PM CDT ? [facility] ? [address] [place], [place] ??[address] ? Test Date: ?2016-05-13 Pat Name: ? OBIE SIMS ?Department: ?? 1 ? Room: ? ICUA Gender: ? M ?External Grinder Tender: ?? LUIS F PERAZA : ?1955 ? Requested By: SHASHI PHILIP Order Number: [id number] ? Saeg LANDRY: ?? Esteban Samano ? Measurements Intervals ?S[place]ney ? Rate: ? 79 ? P: ? VT: ? 0 ?QRS: ?-10 QRSD: ? 140 ?T: ?145 QT: ? 426 ? QTc: ?489 ? Interpretive Statements ATRIAL FIBRILLATION INTRAVENTRICULAR CONDUCTION DELAY POSSIBLE ANTERIOR MYOCARDIAL INFARCTION, OF INDETERMINATE AGE Procedure Note Eun Landry, - 04/18/2019 [place] [address] [place] [address] Test Date: 2016-05-13 Pat Name: OBIE SIMS Department: 1 Room: ICUA Gender: M External Grinder Tender: LUIS F PERAZA : 1955 Requested By: SHASHI PHILIP Order Number: [id number] Reading MD: Esteban Samano Measurements Intervals Sidney Rate: 79 P: VT: 0 QRS: -10 QRSD: 140 T: 145 QT: 426 QTc: 489 Interpretive Statements ATRIAL FIBRILLATION INTRAVENTRICULAR CONDUCTION DELAY POSSIBLE ANTERIOR MYOCARDIAL INFARCTION, OF INDETERMINATE AGE us Generic Conversion Md LANDRY ECG ORDERABLES Final R esult [facility] * XR CHEST PORTABLE (05/13/2016 6:29 PM CDT) Anatomical Region Laterality Modality Chest Radiographic Stephie ging 05/13/2016 6:29 PM CDT 05/13/2016 6:29 PM CDT Narrative 05/13/2016 7:43 PM CDT [facility] ?? [place], [place] ?? Department of Radiology ? OBIE SIMS Ordering MD: SHASHI PHILIP MD ?? Acct: [id number] ?? : 1955 Pt Type: ADM IN ?? Sex: M Ord Site: MAIN ? Study Date Accession # Procedure Code Procedure ?? 05/13/16 [id number] XR Chest 1 View Portable ? Signed [...] Procedure Note Eun Landry MD - 06/16/2018 [place], [place] Department of Radiology OBIE SIMS Ordering MD: SHASHI PHILIP MD Acct: [id number] : 1955 Pt Type: ADM IN Sex: M Ord Site: MAIN Study Date Accession # Procedure Code Procedure 05/13/16 [id number] XR Chest 1 View Portable Signed EXAMINATION: [...] on filedocumented in this encounter Care Teams Seam Taper Machine Relationship Specialty Start Date End Date Megan Infante MD [address] [facility] [place] [address] PCP - General FAMILY PRACTICE 04/06/16 Piyush Pandey MD [place] Thread Pulling Machine Attendant CARDIOVASCULAR DISEASE 04/06/16 12/28/23 Sharmila Davis, ORTHODONTIC LABORATORY TECHNICIAN, BARBER-C [address] [facility] [address] [place] [address] NURSE PRACTITIONER 01/04/17 04/03/24 Linda Block MD [address] [place] [address] [place] Thread Pulling Machine Attendant CLINICAL CARDIAC ELECTROPHYSIOLOGY 02/08/17 04/12/23 documented as of this encounter
--- OUTSIDE RECORDS SUMMARY | 2024-09-03 20:45 | XMS_ITS | Encounter Summary ---
Author Organization [facility] Address [facility]6 [facility] [address] [place] [address] Care Team Providers Care Blasting Clay Miner Name Role Phone Piyush Pandey MD Unavailable Unavailabl Megan Leos MD Primary Care Provider [phone] Sharmila Davis APRN, DEPORTATION OFFICER-C Unavailable [phone] Linda Block MD Unavailable [phone] Encounter Details Date Type Department Care Team (Late st Contact Info) Description 05/13/2016 Orders Only [place] [address] , Generic Conversion, Social History [...] (Late Contact Info) Description 09/25/2024 2:00 [address] PU[address]ER Appointment [facility] [address] [place] [address] Zayra Powell, RETIREMENT ACTUARY [address] [place] [address] 10/16/2024 3:30 PM PICKLE PUMPER Office Visit [facility] [address] [place] [address] Brit Gonzáles MD [address] [place] [address] documented as of this encounter Procedures Procedure Name Priority Date/Time Associated Diagnosis Comments MRSA SCREENING Nurse Collected Priority 05/13/2016 4:45 PM CDT documented in this encounter Results * MRSA SCREENING (05/13/2016 4:45 PM CDT) SPECIMEN SOURCE RESPIRATORY, NOSE 05/13/2016 4:43 PM CDT [facility] MRSA BY PCR NASAL METHICILLIN RESISTANT STAPH AUREUS NOT DETECTED 05/14/2016 12:38 PM CDT [facility] 05/13/2016 4:45 PM CDT 05/14/2016 7:19 AM CDT us Generic Conversion Md LANDRY MICROBIOLOGY - GENERAL ORDERABLES Final Result [facility] [address] [place] [address], [id number] documented in this encounter Visit Diagnoses Not on filedocumented in this encounter Care Teams Blasting Clay Miner Relationship Specialty Start Date End Date Megan Infante MD [address] [place] [phone] PCP - General FAMILY PRACTICE 04/06/16 Piyush Pandey MD [employer] Safety Inspector CARDIOVASCULAR DISEASE 04/06/16 12/28/23 Sharmila Davis APRN, DEPORTATION OFFICER-C [address] [place] [address] [address] [place] [address] NURSE PRACTITIONER 01/04/17 04/03/24 Linda Block MD [address] [place] [address] [employer] Safety Inspector CLINICAL CARDIAC ELECTROPHYSIOLOGY 02/08/17 04/12/23 documented as of this encounter
--- OUTSIDE RECORDS SUMMARY | 2024-09-03 20:45 | XMS_ITS | Encounter Summary ---
Author Organization [facility] Address [facility] [place] [address] [place] [address] Care Team Providers Care Homicide Detective Name Role Phone Piyush Pandey MD Unavailable Unavailabl Megan Leos MD Primary Care Provider [phone] Sharmila Davis APRN, SUPERVISOR DOPING-C Unavailable Linda Block MD Unavailable [phone] Encounter Details Date Type Department Care Team (Late st Contact Info) Description 06/10/2016 Abstract [facility] [place] [address] [place] [address] Shubham Callahan MD [address] [place], [place] [address] Social History Tobacco Use Types Packs/Day Years [...] Contact Info) Description 09/25/2024 2:00 PM ASSEMBLY LINE LEADER Appointment [facility] [address] [place] [address] Zayra Powell, RELAY ENGINEER [address] [place] [address] 10/16/2024 3:30 PM ASSEMBLY LINE LEADER Office Visit [facility] [address] [place] [address] Brit Gonzáles MD [address] [place] [address] documented as of this encounter Visit Diagnoses Not on filedocumented in this encounter Care Teams Homicide Detective Relationship Specialty Start Date End Date Megan Infante MD [address] [place] [address] PCP - General FAMILY PRACTICE 04/06/16 Piyush Pandey MD [place] Manager Of Selection And Assessment CARDIOVASCULAR DISEASE 04/06/16 12/28/23 Sharmila Davis APRN, SUPERVISOR DOPING-C [address] [facility] [address] [place] [address] NURSE PRACTITIONER 01/04/17 04/03/24 Linda Block MD [address] [facility] [address] [place] [address] [place] Manager Of Selection And Assessment CLINICAL CARDIAC ELECTROPHYSIOLOGY 02/08/17 04/12/23 documented as of this encounter
--- OUTSIDE RECORDS SUMMARY | 2024-09-03 20:45 | XMS_ITS | Encounter Summary ---
Author Organization [facility] Address [address] [place] [address]. [place], [place] [address] [place] [address] Care Team Providers Care Sheet Catcher Name Role Phone Piyush Pandey MD [facility] Megan Leos MD Primary Care Provider Encounter Details Date Type Department Care Team (Late st Contact Info) Description 05/29/2016 MATE FOURTH ONLY [facility] [address] [place] [address] Piyush Pandey MD Social History Tobacco Use [...] 05/29/2016 6:29 AM CDT NAME: OBIE SIMS [facility] ROOM: [address] [place] [address] : 1955 CONSULTATION REPORT ADMITTED: 05/13/16 1633 Adm: ANURAG GAYTAN MD DISCHARGED: 05/17/16 1400 Date/Time Dictated: 05/29/16 0629 Transcribed Date/Time: 05/29/16 1353 cc: Zora Cornell Mary D, III, M.D. Chart Document TYPE OF CONSULTATION Cardiology Consultation HISTORY OF PRESENT ILLNESS Mr. Sims is a 60-year-old gentleman with a complex cardiovascular history, who was initially transferred [facility] for further evaluation and treatment of hypoxemic [...] I have discussed his case with his outlet manager, Dr. Linda Block, in detail. We will follow with you. Electronically Signed By: Piyush Pandey III, M.D. 06/02/2016 11:10 A Piyush Pandey III, M.D. documented in this encounter Plan of Treatment Upcoming Encounters Date Type Department Care Team (Late st Contact Info) Description 09/25/2024 2:00 PM CRM MARKETING EXECUTIVE Appointment [facility] [address] [place] [address] Zayra Powell ENGINEERING AND OPERATIONS DIRECTOR [address] [place] [address] 10/16/2024 3:30 PM CRM MARKETING EXECUTIVE Office Visit [facility] [address] [place] [address] Brti Gonzáles MD [address] [place] [address] documented as of this encounter Visit Diagnoses Not on filedocumented in this encounter Care Teams Sheet Catcher Relationship Specialty Start Date End Date Megan Infante MD [address] [place] [address] PCP - General FAMILY PRACTICE 04/06/16 Piyush Pandey MD [place] Pst Manager CARDIOVASCULAR DISEASE 04/06/16 12/28/23 documented as of this encounter
--- OUTSIDE RECORDS SUMMARY | 2024-09-03 20:45 | XMS_ITS | Encounter Summary ---
Author Organization [facility] Address Counts include 234 beds at the [facility] [place] [address] [place] [address] Care Team Providers Care Edge Trimming Machine Operator Name Role Phone Piyush Pandey MD Unavailable Unavailabl Megan Leos MD Primary Care Provider [phone] Sharmila Davis APRN, GREENS OR GROUNDS SUPERINTENDENT-C Unavailable [phone] Linda Block MD Unavailable [phone] Encounter Details Date Type Department Care Team (Late st Contact Info) Description 05/14/2016 Orders Only [place] [address] , Generic Conversion, Social History [...] (Late Contact Info) Description 09/25/2024 2:00 PM MEDICAL REVIEWER Appointment [facility] [address] [place] [address] Zayra Powell, MENTAL RETARDATION NURSE [address] [place] [address] 10/16/2024 3:30 PM MEDICAL REVIEWER Office Visit [facility] [address] Brit Gonzáles MD 6[address] [place] [address] documented as of this encounter Procedures Procedure Name Priority Date/Time Associated Diagnosis Comments POCT GLUCOSE - VALLECILLO DOCKED DEVICE Routine 05/14/2016 7:14 PM CDT documented in this encounter Results * (ABNORMAL) POCT glucose (05/14/2016 7:14 PM CDT) GLUCOSE POC 158(H) 70 - 109 05/14/2016 7:16 PM CDT [facility] ORDERS INTERFACE WHOLE BLOOD SPECIMEN / Unknown 05/14/2016 7:14 PM CDT 05/14/2016 7:16 PM CDT us Generic Conversion Md LANDRY POCT ORDERABLES - DEVIC E Final Result [facility] ORDERS INTERFACE US documented in this encounter Visit Diagnoses Not on filedocumented in this encounter Care Teams Edge Trimming Machine Operator Relationship Specialty Start Date End Date Megan Infante MD [address] [facility] [place] [phone] PCP - General FAMILY PRACTICE 04/06/16 Piyush Pandey MD [place] Application Support Engineer CARDIOVASCULAR DISEASE 04/06/16 12/28/23 Sharmila Davis APRN, GREENS OR GROUNDS SUPERINTENDENT-C [address] [facility] 47 [place] [address] NURSE PRACTITIONER 01/04/17 04/03/24 Linda Block MD 6[address] [facility] [address] [place] [address] [place] Application Support Engineer CLINICAL CARDIAC ELECTROPHYSIOLOGY 02/08/17 04/12/23 documented as of this encounter
--- OUTSIDE RECORDS SUMMARY | 2024-09-03 20:45 | XMS_ITS | Encounter Summary ---
Author Organization [facility] Address [facility] [place] [address] [place] [address] Care Team Providers Care Senior Firewall Engineer Name Role Phone Piyush Pandey MD Unavailable Unavailabl Megan Leos MD Primary Care Provider [phone] Sharmila Davis APRN, AMUSEMENT RIDE INSPECTOR-C Unavailable [phone] Linda Block MD Unavailable [phone] Encounter Details Date Type Department Care Team (Late st Contact Info) Description 05/15/2016 Orders Only [place] [address] , Generic Conversion, Social History [...] (Late Contact Info) Description 09/25/2024 2:00 PM CORE CLEANER Appointment [facility] [address] [place] [address] Zayra Powell, BANKING MANAGEMENT CONSULTING MANAGER [address] [place] [address] 10/16/2024 3:30 PM CORE CLEANER Office Visit [facility] [address] [address] Brit Gonzáles MD [address] [place] [address] documented as of this encounter Procedures Procedure Name Priority Date/Time Associated Diagnosis Comments POCT GLUCOSE - VALLECILLO DOCKED DEVICE Routine 05/15/2016 8:27 AM CDT documented in this encounter Results * (ABNORMAL) POCT glucose (05/15/2016 8:27 AM CDT) GLUCOSE POC 152(H) 70 - 109 05/15/2016 8:53 AM CDT [facility] ORDERS INTERFACE WHOLE BLOOD SPECIMEN / Unknown 05/15/2016 8:27 AM CDT 05/15/2016 8:53 AM CDT us Generic Conversion Md LANDRY POCT ORDERABLES - DEVIC E Final Result [facility] ORDERS INTERFACE US documented in this encounter Visit Diagnoses Not on filedocumented in this encounter Care Teams Senior Firewall Engineer Relationship Specialty Start Date End Date Megan Infante MD [address] [facility] [place] [address] PCP - General FAMILY PRACTICE 04/06/16 Piyush Pandey MD [place] Meteorological Technician CARDIOVASCULAR DISEASE 04/06/16 12/28/23 Sharmila Davis APRN, AMUSEMENT RIDE INSPECTOR-C 619 [facility] 47 [place] [address] NURSE PRACTITIONER 01/04/17 04/03/24 Linda Block MD 619 [facility] [address] [place] [address] [place] Meteorological Technician CLINICAL CARDIAC ELECTROPHYSIOLOGY 02/08/17 04/12/23 documented as of this encounter
--- OUTSIDE RECORDS SUMMARY | 2024-09-03 20:45 | XMS_ITS | Encounter Summary ---
Author Organization [facility] Address [facility] [place] [address] [place] [address] Care Team Providers Care Alarm Service Technician Name Role Phone Piyush Pandey MD Unavailable Unavailabl Megan Leos MD Primary Care Provider [phone] Sharmila Davis APRN, SUPERVISOR EXTRUDING DEPARTMENT-C Unavailable [phone] Linda Block MD Unavailable [phone] Encounter Details Date Type Department Care Team (Late st Contact Info) Description 05/13/2016 Orders [place] [address] , Generic Conversion, Social History [...] (Late Contact Info) Description 09/25/2024 2:00 PM GRAIN FARMER Appointment [facility] [address] [place] [address] Zayra Powell, GLASSWARE MAKER DEMONSTRATOR [address] [place] [address] 10/16/2024 3:30 PM GRAIN FARMER Office Visit [facility] [address] Brit Gonzáles MD 619 [place] [address] documented as of this encounter Procedures Procedure Name Priority Date/Time Associated Diagnosis Comments POCT GLUCOSE - VALLECILLO DOCKED DEVICE Routine 05/13/2016 8:27 PM CDT documented in this encounter Results * (ABNORMAL) POCT glucose (05/13/2016 8:27 PM CDT) GLUCOSE POC 262(H) 70 - 109 05/13/2016 9:52 PM CDT [facility] ORDERS INTERFACE WHOLE BLOOD SPECIMEN / Unknown 05/13/2016 8:27 PM CDT 05/13/2016 9:51 PM CDT us Generic Conversion Md LANDRY POCT ORDERABLES - DEVIC E Final Result [facility] ORDERS INTERFACE US documented in this encounter Visit Diagnoses Not on filedocumented in this encounter Care Teams Alarm Service Technician Relationship Specialty Start Date End Date Megan Infante MD [address] [place] [phone] PCP - General FAMILY PRACTICE 04/06/16 Piyush Pandey MD [place] Quality Control Tech Raw Materials CARDIOVASCULAR DISEASE 04/06/16 12/28/23 Sharmila Davis APRN, SUPERVISOR EXTRUDING DEPARTMENT-C 619 [facility] 47 [place] [address] NURSE PRACTITIONER 01/04/17 04/03/24 Linda Block MD 619 [facility] [address] [place] [phone] [place] Quality Control Tech Raw Materials CLINICAL CARDIAC ELECTROPHYSIOLOGY 02/08/17 04/12/23 documented as of this encounter
--- OUTSIDE RECORDS SUMMARY | 2024-09-03 20:45 | XMS_ITS | Encounter Summary ---
Author Organization [facility] Address [facility] [place] [address] [place] [address] Care Team Providers Care Manager Technical Services Name Role Phone Piyush Pandey MD Unavailable Unavailabl Megan Leos MD Primary Care Provider [phone] Sharmila Davis APRN, FIELD MANAGER-C Unavailable [phone] Linda Block MD Unavailable [phone] Encounter Details Date Type Department Care Team (Late st Contact Info) Description 05/13/2016 Orders [place] [address] , Generic Conversion, Social History [...] (Late Contact Info) Description 09/25/2024 2:00 PM REPAIRER WELDING SYSTEMS AND EQUIPMENT Appointment [facility] [address] [place] [address] Zayra Powell, CALL SPECIALIST [address] [place] [address] 10/16/2024 3:30 PM REPAIRER WELDING SYSTEMS AND EQUIPMENT Office Visit [facility] [address] Brit Gonzáles MD 619 [place] [address] documented as of this encounter Procedures Procedure Name Priority Date/Time Associated Diagnosis Comments PARTIAL THROMBOPLASTIN TIME,PTT STAT 05/13/2016 6:48 PM CDT documented in this encounter Results * PARTIAL THROMBOPLASTIN TIME,PTT (05/13/2016 6:48 PM CDT) PTT 28.6 22.0 - 35.0 SEC 05/13/2016 7:21 PM CDT [facility] PLASMA SPECIMEN / Unknown 05/13/2016 6:48 PM CDT 05/13/2016 6:57 PM CDT us Generic Conversion Md LANDRY LABORATORY Final R esult [facility] [address] [place] [address], [id number] documented in this encounter Visit Diagnoses Not on filedocumented in this encounter Care Teams Manager Technical Services Relationship Specialty Start Date End Date Megan Infante MD [address] [place] [address] PCP - General FAMILY PRACTICE 04/06/16 Piyush Pandey MD [employer] Computer Education Professor CARDIOVASCULAR DISEASE 04/06/16 12/28/23 Sharmila Davis APRN, FIELD MANAGER-C [address] [address] NURSE PRACTITIONER 01/04/17 04/03/24 Linda Block MD [address] [address] [employer] Computer Education Professor CLINICAL CARDIAC ELECTROPHYSIOLOGY 02/08/17 04/12/23 documented as of this encounter
--- OUTSIDE RECORDS SUMMARY | 2024-09-03 20:45 | XMS_ITS | Encounter Summary ---
Author Organization [facility] Address [facility] [place] [address] [place] [address] Care Team Providers Care Trackless Trolley Driver Name Role Phone Piyush Pandey MD Unavailable Unavailabl Megan Leos MD Primary Care Provider [phone] Sharmila Davis APRN, TANNING SALON ATTENDANT-C Unavailable Linda Block MD Unavailable [phone] Encounter Details Date Type Department Care Team (Latest Contact Info) Description 05/20/2016 Abstract [facility] Shubham Callahan MD [address] [place] [address] Social History Tobacco Use Types Packs/Day Years [...] disease); JESSICA = N; Verified Transmission to [facility] 213; Last Updated By: [employer]; 05/20/2016 3:28:02 PM 2. 6 minute O2 Walk In Office; Status:Complete; Done: [id number] Perform:In Office; Due:30May2016; Last Updated By:Isak Velasco; 05/20/2016 3:17:11 PM;Ordered; For:COPD (chronic obstructive pulmonary disease); Ordered By:Shubham Callahan; 3. Ixvub-5-Ijppfhueyfj; Status:Complete; Done: [id number] Perform:Other Lab; Due:19Jun2016; Last Updated By:Isak Velasco; 05/20/2016 3:17:11 PM;Ordered; For:COPD (chronic obstructive pulmonary disease); Ordered By:Shubham Callahan; 4. Oxygen; Status:Complete; Done: [id number] Perform:Not Applicable; Due:25May2016; Last Updated By:Isak Velasco; 05/20/2016 3:29:07 PM;Ordered; For:COPD (chronic obstructive pulmonary disease); Ordered By:Shubham Callahan; Unlinked 5. Dulera 200-5 MCG/ACT Inhalation Aerosol Dispense: 0 Days ; #:1 GM; Refill: 6; JESSICA = N; Record; Last Updated By: Shubham Callahan; 05/20/2016 3:26:47 PM Rule out nommx-5-paxdrzhyqqo deficiency. Discontinue Dulera. Continue Incruse 1 daily. [...] told him we have to rule out dlqkb-8-secylcttcvn deficiency. Reason For Visit Consultation Follow-Up History [...] congestive heart failure. He was hospitalized at [place]. The diagnosis was diastolic heart failure. At [...] TWICE DAILY. RINSE MOUTH AFTER USE; Therapy: (Recorded:[id number]) to Recorded 5. Furosemide 40 MG Oral [...] Activated; USE 1 INHALATION ONCE DAILY; Therapy: (Recorded:[id number]) to Recorded 9. Lipitor 40 MG Oral [...] Shubham Callahan M.D.; May 20 2016 5:13PM BRUSH MAKER MACHINE (Author) documented in this encounter Plan of Treatment Upcoming Encounters Date Type Department Care Team (Late st Contact Info) Description 09/25/2024 2:00 PM BRUSH MAKER MACHINE Appointment [facility] [address] [place] [address] Zayra Powell, [facility] [address] [place] [address] 10/16/2024 3:30 PM BRUSH MAKER MACHINE Office Visit [facility] [address] [place] [address] Brit Gonzáles MD 619 [place] [address] documented as of this encounter Visit Diagnoses Not on filedocumented in this encounter Care Teams Trackless Trolley Driver Relationship Specialty Start Date End Date Megan Infante MD [address] [place] [address] PCP - General FAMILY PRACTICE 04/06/16 Piyush Pandey MD [place] Real Estate Acquisition Analyst CARDIOVASCULAR DISEASE 04/06/16 12/28/23 Sharmila Davis APRN, TANNING SALON ATTENDANT-C 619 [facility] [address] [place] [address] NURSE PRACTITIONER 01/04/17 04/03/24 Linda Block MD 619 [facility] [address] [place] [address] [place] Real Estate Acquisition Analyst CLINICAL CARDIAC ELECTROPHYSIOLOGY 02/08/17 04/12/23 documented as of this encounter
--- OUTSIDE RECORDS SUMMARY | 2024-09-03 20:45 | XMS_ITS | Encounter Summary ---
Author Organization [facility] Address [facility]6 [place] [address] [place] [address] Care Team Providers Care Concrete Mixing Truck Driver Name Role Phone Piyush Pandey MD Unavailable UnavailMegan Rodriguez MD Primary Care Provider [phone] Sharmila Davis APRN, ROOMING HOUSE KEEPER-C Unavailable Linda Block MD Unavailable [phone] Encounter Details Date Type Department Care Team (Latest Contact Info) Description 05/15/2016 Abstract [facility] Social History [...] st Contact Info) Description 09/25/2024 2:00 PM WINE MAKER Appointment [facility] [address] [place] [address] Zayra Powell, LEGAL AID [address] [place] [address] 10/16/2024 3:30 PM WINE MAKER Office Visit [facility] [address] [place] [address] Brit Gonzáles MD 619 [place] [address] documented as of this encounter Visit Diagnoses Not on filedocumented in this encounter Care Teams Concrete Mixing Truck Driver Relationship Specialty Start Date End Date Megan Infante MD [address] [facility] [place] [address] PCP - General FAMILY PRACTICE 04/06/16 Piyush Pandey MD [place] Product Support Manager CARDIOVASCULAR DISEASE 04/06/16 12/28/23 Sharmila Davis APRN, ROOMING HOUSE KEEPER-C 619 [facility] [address] [place] [address] NURSE PRACTITIONER 01/04/17 04/03/24 Linda Block MD 619 [facility] [address] [address] [place] Product Support Manager CLINICAL CARDIAC ELECTROPHYSIOLOGY 02/08/17 04/12/23 documented as of this encounter
--- OUTSIDE RECORDS SUMMARY | 2024-09-03 20:45 | XMS_ITS | Encounter Summary ---
Author Organization [facility] Address [facility]6 [place] [address] [place] [address] Care Team Providers Care Geographic Information Systems Director Name Role Phone Piyush Pandey MD, Amy E MD Primary Care Provider Reason for Visit * Reason Comments Follow Up atrial fibrillation, rate control Encounter Details Date Type Department Care Team (Latest Contact Info) Description 04/23/2016 11:00 AM CDT Office Visit [facility] 619 [place] [phone] Linda Block MD [address] [place] [address] [place] [address] Follow Up (atrial fibrillation, rate control) [...] st Contact Info) Description 09/25/2024 2:00 PM AIRBRUSH ARTIST Appointment [facility] [address] [place] [address] Zayra Powell, PRUNER [address] [place] [address] 10/16/2024 3:30 PM AIRBRUSH ARTIST Office Visit [facility] [place] [phone] Brit Gonzáles MD 619 [place] [address] documented as of this encounter Visit Diagnoses Diagnosis Permanent atrial fibrillation (CMS/HCC HHS/HCC)- Primary Atrial fibrillation documented in this encounter Care Teams Geographic Information Systems Director Relationship Specialty Start Date End Date Megan Infanet MD [address] [place] [address] PCP - General FAMILY PRACTICE 04/06/16 Piyush Pandey MD [place] Historiography Professor CARDIOVASCULAR DISEASE 04/06/16 12/28/23 documented as of this encounter
--- OUTSIDE RECORDS SUMMARY | 2024-09-03 20:45 | XMS_ITS | Encounter Summary ---
Author Organization [facility] Address [address] [place] [address]. [place] [address] [place] [address] Care Team Providers Care Shelving Supervisor Name Role Phone Piyush Pandey MD Unavailable Unavailabl Megan Leos MD Primary Care Provider [phone] Sharmila Davis APRN, FACULTY SUPPORT COORDINATOR-C Unavailable [phone] Linda Block MD Unavailable [phone] Encounter Details Date Type Department Care Team (Late st Contact Info) Description 04/13/[address] [facility] [address] [place] [address] Piyush Pandey MD Social History Tobacco Use [...] Contact Info) Description 09/25/2024 2:00 PM PAYROLL ADMINISTRATIVE ASSISTANT Appointment [facility] [address] [place] [address] Zayra Powell, [facility] [address] [place] [address] 10/16/2024 3:30 PM PAYROLL ADMINISTRATIVE ASSISTANT Office Visit [facility] [address] [place] [phone] Brit Gonzáles MD 619 [place] [address] documented as of this encounter Visit Diagnoses Diagnosis Dyspnea Other dyspnea and respiratory abnormality documented in this encounter Care Teams Shelving Supervisor Relationship Specialty Start Date End Date Megan Infante MD [address] [facility] [place] [address] PCP - General FAMILY PRACTICE 04/06/16 Piyush Pandey MD [place] Personal Injury Litigation Paralegal CARDIOVASCULAR DISEASE 04/06/16 12/28/23 Sharmila Davis, DANNY, FACULTY SUPPORT COORDINATOR-C 619 [facility] [address] [place] [address] NURSE PRACTITIONER 01/04/17 04/03/24 Linda Block MD 619 [facility] 47 [place] [address] [place] Personal Injury Litigation Paralegal CLINICAL CARDIAC ELECTROPHYSIOLOGY 02/08/17 04/12/23 documented as of this encounter
--- OUTSIDE RECORDS SUMMARY | 2024-09-03 20:45 | XMS_ITS | Encounter Summary ---
Author Organization [facility] Address [address] [place] [address]. [place] [address] [place] [address] Care Team Providers Care Warp Spinner Name Role Phone Amauri Pandey MD [facility] MD Primary Care Provider [phone] Encounter Details Date Type Department Care Team (Late Contact Info) Description 05/14/2016 Orders Only [facility] [address] [place] [phone] Amauri Pandey MD Social History Tobacco [...] (Late Contact Info) Description 09/25/2024 2:00 PM CONCRETE FINISHER Appointment [facility] [address] [place] [address] Zayra Powell, INFORMATION DEVELOPER [address] [place] [address] 10/16/2024 3:30 PM CONCRETE FINISHER Office Visit [facility] [address] [place] [phone] Brit Gonzáles MD [address] [place] [address] documented as of this encounter Procedures Procedure Name Priority Date/Time Associated Diagnosis Comments USE ECHOCARDIOGRAM 05/14/2016 3: 00 PM CDT documented in this encounter Results * USE ECHOCARDIOGRAM (05/14/2016 3:00 PM CDT) Anatomical Region Laterality Modality Cardiac Echocardiogram 05/14/2016 3:00 PM CDT Narrative 05/14/2016 12:00 AM CDT ?Echocardiography Report Pat.Name: ??OBIE SIMS ?Pat.ID: ?[id number] ? St.Date: ?? 05/14/2016 ? Refer.: ??AMAURI [...] 05/14/2016 Echocardiography Report Pat.Name: OBIE SIMS Pat.ID: [id number] St.Date: 05/14/2016 Refer.MD: AMAURI PANDEY Exam Time: [...] filedocumented in this encounter Care Teams Warp Spinner Relationship Specialty [place] [address] [place] [address] [place] [address] PCP - General FAMILY PRACTICE 04/06/16 Amauri Pandey MD [place] Sales Service Promoter CARDIOVASCULAR DISEASE 04/06/16 12/28/23 documented as of this encounter
--- OUTSIDE RECORDS SUMMARY | 2024-09-03 20:45 | XMS_ITS | Encounter Summary ---
Author Organization [facility] Address formerly [facility]6 [facility] [place] [address] [place] [address] Care Team Providers Care Cafeteria Helper Name Role Phone Piyush Pandey MD Unavailable Unavailabl Megan Leos MD Primary Care Provider [phone] Sharmila Davis APRN, COMMERCIAL LINES SALES EXECUTIVE-C Unavailable [phone] Linda Block MD Unavailable [phone] Encounter Details Date Type Department Care Team (Late st Contact Info) Description 05/16/2016 Orders [place] [address] , Generic Conversion, Social History [...] (Late Contact Info) Description 09/25/2024 2:00 PM CARPET YARN WINDER OPERATOR Appointment [facility] [address] [place] [address] Zayra Powell, SCREEN AND CYCLONE REPAIRER [address] [place] [address] 10/16/2024 3:30 PM CARPET YARN WINDER OPERATOR Office Visit [facility] [place] [address] Brit Gonzáles MD [address] [place] [address] documented as of this encounter Procedures Procedure Name Priority Date/Time Associated Diagnosis Comments POCT GLUCOSE - VALLECILLO DOCKED DEVICE Routine 05/16/2016 12:38 PM CDT documented in this encounter Results * (ABNORMAL) POCT glucose (05/16/2016 12:38 PM CDT) GLUCOSE POC 260(H) 70 - 109 05/16/2016 1:24 PM CDT [facility] ORDERS INTERFACE WHOLE BLOOD SPECIMEN / Unknown 05/16/2016 12:38 PM CDT 05/16/2016 1:24 PM CDT us Generic Conversion Md LANDRY POCT ORDERABLES - DEVIC E Final Result [facility] ORDERS INTERFACE US documented in this encounter Visit Diagnoses Not on filedocumented in this encounter Care Teams Cafeteria Helper Relationship Specialty Start Date End Date Megan Infante MD [address] [facility] [place] [phone] PCP - General FAMILY PRACTICE 04/06/16 Piyush Pandey MD [place] Almond Roaster CARDIOVASCULAR DISEASE 04/06/16 12/28/23 Sharmila Davis APRN, COMMERCIAL LINES SALES EXECUTIVE-C [address] [facility] [address] [place] [address] NURSE PRACTITIONER 01/04/17 04/03/24 Linda Block MD 6[address] [facility] [address] [place] [address] [facility] Almond Roaster CLINICAL CARDIAC ELECTROPHYSIOLOGY 02/08/17 04/12/23 documented as of this encounter
--- OUTSIDE RECORDS SUMMARY | 2024-09-03 20:45 | XMS_ITS | Encounter Summary ---
Author Organization [facility] Address [facility]6 [place] [address] [place] [address] Care Team Providers Care Project Coach Name Role Phone Piyush Pandey MD Unavailable Unavailabl e Megan Infante MD Primary Care Provider [phone] Sharmila Davis APRN, JAVA DEVELOPER ANALYST-C Unavailable Linda Block MD Unavailable [phone] Encounter Details Date Type Department Care Team (Late st Contact Info) Description 05/17/2016 SENIOR ORACLE DATABASE DEVELOPER ONLY [facility] [address] [place] [address] Scanned, Documents Social History Tobacco [...] AM CDT DATE: 05/18/16 @ 0601 [facility] USER: [email or web address] Medication Reconciliation PHYNRXRI DISCHARGE MEDICATION INSTRUCTIONS OBIE SIMS [place]LE Location: BMI: 32.4 MR#: [id number] Admit Date: 05/13/16 : 1955 Weight: 93.386957 kg Height: 170.18 cm Allergies: No Known [...] PAGE ACCESS ID: DATE: 05/18/16 @ 0601 [facility] PAGE 2 USER: [email or web address] Medication Reconciliation PHYNRXRI DISCHARGE MEDICATION INSTRUCTIONS OBIE SIMS Location: 7E BMI: 32.4 MR#: [id number] Admit Date: 05/13/16 : 1955 M Weight: 93.916194 kg Height: 170.18 cm Allergies: No Known [...] PAGE ACCESS ID: DATE: 05/18/16 @ 0601 [facility] PAGE 3 USER: [email or web address] Medication Reconciliation PHYNRXRI DISCHARGE MEDICATION INSTRUCTIONS OBIE SIMS Location: 7E BMI: 32.4 MR#: [id number] Admit Date: 05/13/16 : 1955 Weight: 93.327579 kg Height: 170.18 cm Allergies: No Known [...] PAGE ACCESS ID: DATE: 05/18/16 @ 0601 [facility] LIVE PAGE 4 USER: [email or web address] Medication Reconciliation PHYNRXRI DISCHARGE MEDICATION INSTRUCTIONS OBIE SIMS Location: 7E BMI: 32.4 MR#: [id number] Admit Date: 05/13/16 : 1955 M Weight: 93.370825 kg Height: 170.18 cm Allergies: No Known [...] PAGE ACCESS ID: DATE: 05/18/16 @ 0601 [facility] PAGE 5 USER: [email or web address] Medication Reconciliation PHYNRXRI DISCHARGE MEDICATION INSTRUCTIONS OBIE SIMS Location: BMI: 32.4 MR#: [id number] Admit Date: 05/13/16 : 1955 M Weight: 93.661929 kg Height: 170.18 cm Allergies: No Known [...] st Contact Info) Description 09/25/2024 2:00 PM PRESSER AND BLOCKER KNITTED GOODS Appointment [facility] [place] [address] Zayra Powell, IRA [facility] [address] [place] [address] 10/16/2024 3:30 PM PRESSER AND BLOCKER KNITTED GOODS Office Visit [facility] [address] [address] [place] [phone] Brit Gonzáles MD [address] [place] [address] documented as of this encounter Visit Diagnoses Not on filedocumented in this encounter Care Teams Project Coach Relationship Specialty Start Date End Date Megan Infante MD [address] [place] [address] PCP - General FAMILY PRACTICE 04/06/16 Piyush Pandey MD [place] Professional Nursing Tutor CARDIOVASCULAR DISEASE 04/06/16 12/28/23 Sharmila Davis APRN, JAVA DEVELOPER ANALYST-C [address] [facility] [address] [place] [address] NURSE PRACTITIONER 01/04/17 04/03/24 Linda Block MD 619 [facility] [address] [place] [address] [facility] Professional Nursing Tutor CLINICAL CARDIAC ELECTROPHYSIOLOGY 02/08/17 04/12/23 documented as of this encounter
--- OUTSIDE RECORDS SUMMARY | 2024-09-03 20:45 | XMS_ITS | Encounter Summary ---
Author Organization [facility] Address [address] [place] [address] [address] [place] [address] Care Team Providers Care Silo Operator Name Role Phone Piyush Pandey MD [facility] Megan Leos MD Primary Care Provider [phone] Reason for Referral * (Routine) - Closed Specialty Diagnoses / Procedures Referred By Contac t Referred To Contact Diagnoses Chronic atrial fibrillation ([facility]) Procedures HOLTER MONITOR 24 HR REC Linda Block MD [address] [facility] [address] [place] [address] Phone: tel: fax: Referral ID Status Reason Start Date Expiration Date Visits Re quested Visits Authorized [id number] Closed 04/07/2016 05/08/2017 1 1 Reason for Visit * Reason Onset Date Comments Appointment Request 04/07/2016 Encounter Details Date Type Department Care Team (Late st Contact Info) Description 04/07/2016 Telephone [facility] [address] [place] [address] Linda Block MD [address] [facility] [address] [place] [address] Appointment Request Social History Tobacco [...] Holter on 04/21/16 @ 10:00 here at [facility] and will be seen in clinic on 04/23/16 @ 11:00. Pt voiced understanding. documented in this encounter Plan of Treatment Upcoming Encounters Date Type Department Care Team (Late st Contact Info) Description 09/25/2024 2:00 PM CYBER INCIDENT ANALYST Appointment [facility] [address] [place] [address] Zayra Powell, TRAIN DISPATCHER [address] [place] [address] 10/16/2024 3:30 PM CYBER INCIDENT ANALYST Office Visit [facility] [address] [place] [phone] Brit Gonzáles MD [address] [place] [address] documented as of this encounter Procedures Procedure [...] fibrillation documented in this encounter Care Teams Silo Operator Relationship Specialty Start Date End Date Megan Infante MD [address] [place] [address] PCP - General FAMILY PRACTICE 04/06/16 Piyush Pandey MD [place] Photo Equipment Technician CARDIOVASCULAR DISEASE 04/06/16 12/28/23 documented as of this encounter
--- OUTSIDE RECORDS SUMMARY | 2024-09-03 20:45 | XMS_ITS | Encounter Summary ---
Author Organization [facility] Address [facility] [place] [address] [place] [address] Care Team Providers Care Licensed Land Surveyor Name Role Phone Piyush Pandey MD Unavailable Unavailabl Megan Leos MD Primary Care Provider [phone] Sharmila Davis APRN, BUILDING CODE INSPECTOR-C Unavailable [phone] Linda Block MD Unavailable [phone] Encounter Details Date Type Department Care Team (Late st Contact Info) Description 05/17/2016 Orders [place] [address] , Generic Conversion, Social History [...] (Late Contact Info) Description 09/25/2024 2:00 PM MUD ANALYSIS WELL LOGGING OPERATOR Appointment [facility] [address] [place] [address] Zayra Powell, BEAUTY PARLOR CLEANER [address] [place] [address] 10/16/2024 3:30 PM MUD ANALYSIS WELL LOGGING OPERATOR Office Visit [facility] [place] [address] Brit Gonzáles MD [address] [place] [address] documented as of this encounter Procedures Procedure Name Priority Date/Time Associated Diagnosis Comments PROTHROMBIN TIME, VENOUS TIMED 05/17/2016 4:15 AM CDT documented in this encounter Results * (ABNORMAL) PROTIME/INR, VENOUS (05/17/2016 4:15 AM CDT) PROTIME 17.2(H) 11.6 - 14.3 SEC 05/17/2016 4:[address] [facility] INR 1.4(H) 0.9 - 1.1 05/17/2016 4:[address] [facility] 05/17/2016 4:15 AM CDT 05/17/2016 4:22 AM CDT us Generic Conversion Md [facility] LAB[facility] Final R esult [facility] [address] [place] [address], [id number] documented in this encounter Visit Diagnoses Not on filedocumented in this encounter Care Teams Licensed Land Surveyor Relationship Specialty Start Date End Date Megan Infante MD [address] [place] [address] PCP - General FAMILY PRACTICE 04/06/16 Piyush Pandey MD [place] Quarter Lining Smoother CARDIOVASCULAR DISEASE 04/06/16 12/28/23 Sharmila Davis APRN, BUILDING CODE INSPECTOR-C [address] [place] [address] [address] [place] [address] NURSE PRACTITIONER 01/04/17 04/03/24 Linda Block MD [address] [facility] [address] [place] [address] [place] Quarter Lining Smoother CLINICAL CARDIAC ELECTROPHYSIOLOGY 02/08/17 04/12/23 documented as of this encounter
--- OUTSIDE RECORDS SUMMARY | 2024-09-03 20:45 | XMS_ITS | Encounter Summary ---
Author Organization [facility] Address [facility] [place] [address] [place] [address] Care Team Providers Care Woods Rider Name Role Phone Piyush Pandey MD Unavailable Unavailabl Megan Leos MD Primary Care Provider [phone] Sharmila Davis APRN, KICK PRESS OPERATOR-C Unavailable [phone] Linda Block MD Unavailable [phone] Encounter Details Date Type Department Care Team (Late st Contact Info) Description 05/14/2016 Orders [place] [address] , Generic Conversion, Social History [...] (Late Contact Info) Description 09/25/2024 2:00 PM PRODUCTION SUPPORT ENGINEER Appointment [facility] [address] [place] [address] Zayra Powell, BLOCK CABLEMAN [address] [place] [address] 10/16/2024 3:30 PM PRODUCTION SUPPORT ENGINEER Office Visit [facility] [place] [address] Brit Gonzáles MD [address]19 [place] [address] documented as of this encounter Procedures Procedure Name Priority Date/Time Associated Diagnosis Comments POCT GLUCOSE - VALLECILLO DOCKED DEVICE Routine 05/14/2016 9:38 PM CDT documented in this encounter Results * (ABNORMAL) POCT glucose (05/14/2016 9:38 PM CDT) GLUCOSE POC 196(H) 70 - 109 05/15/2016 12:49 AM CDT [facility] ORDERS INTERFACE WHOLE BLOOD SPECIMEN / Unknown 05/14/2016 9:38 PM CDT 05/15/2016 12:49 AM CDT us Generic Conversion Md LANDRY POCT ORDERABLES - DEVIC E Final Result [facility] ORDERS INTERFACE US documented in this encounter Visit Diagnoses Not on filedocumented in this encounter Care Teams Woods Rider Relationship Specialty Start Date End Date Megan Infante MD [address] [facility] [place] [address] PCP - General FAMILY PRACTICE 04/06/16 Piyush Pandey MD [employer] Cashier CARDIOVASCULAR DISEASE 04/06/16 12/28/23 Sharmila Davis APRN, KICK PRESS OPERATOR-C 6[address] [facility] [address] [place] [address] NURSE PRACTITIONER 01/04/17 04/03/24 Linda Block MD 619 [facility] [address] [place] [address] [employer] Cashier CLINICAL CARDIAC ELECTROPHYSIOLOGY 02/08/17 04/12/23 documented as of this encounter
--- OUTSIDE RECORDS SUMMARY | 2024-09-03 20:45 | XMS_ITS | Encounter Summary ---
Author Organization [facility] Address [facility]6 [facility] [place] [address] [place] [address] Care Team Providers Care Forensic Technician Name Role Phone Piyush Pandey MD Unavailable Unavailabl Megan Leos MD Primary Care Provider [phone] Sharmila Davis APRN, ACCOUNTING/FINANCE TUTOR-C Unavailable [phone] Linda Block MD Unavailable [phone] Encounter Details Date Type Department Care Team (Late st Contact Info) Description 05/16/2016 Orders [place] [address] , Generic Conversion, Social History [...] (Late Contact Info) Description 09/25/2024 2:00 PM PACK MULE WORKER Appointment [facility] [address] [place] [address] Zayra Powell, SOFT CRAB SHEDDER [address] [place] [address] 10/16/2024 3:30 PM PACK MULE WORKER Office Visit [facility] [place] [address] Brit Gonzáles MD 6[address] [place] [address] documented as of this encounter Procedures Procedure Name Priority Date/Time Associated Diagnosis Comments MAGNESIUM TIMED 05/16/2016 5:08 AM CDT documented in this encounter Results * MAGNESIUM (05/16/2016 5:08 AM CDT) MAGNESIUM 2.2 1.6 - 2.6 MG/DL 05/16/2016 6:04 AM CDT [facility] SERUM OR PLASMA SPECIMEN / Unknown 05/16/2016 5:08 AM CDT 05/16/2016 5:25 AM CDT us Generic Conversion Md [facility] Final R esult [facility] [address] [place] [address], [id number] documented in this encounter Visit Diagnoses Not on filedocumented in this encounter Care Teams Forensic Technician Relationship Specialty Start Date End Date Megan Infante MD [address] [facility] [place] [address] PCP - General FAMILY PRACTICE 04/06/16 Piyush Pandey MD [place] Continuous Weld Pipe Mill Supervisor CARDIOVASCULAR DISEASE 04/06/16 12/28/23 Sharmila Davis APRN, ACCOUNTING/FINANCE TUTOR-C [address] [phone] NURSE PRACTITIONER 01/04/17 04/03/24 Linda Block MD 6[address] [facility] [address] [phone] [place] Continuous Weld Pipe Mill Supervisor CLINICAL CARDIAC ELECTROPHYSIOLOGY 02/08/17 04/12/23 documented as of this encounter
--- OUTSIDE RECORDS SUMMARY | 2024-09-03 20:45 | XMS_ITS | Encounter Summary ---
Author Organization [facility] Address [facility] [facility] [place] [address] [place] [address] Care Team Providers Care Laminated Plastics Assembler And Gluer Name Role Phone Piyush Pandey MD Unavailable UnavailMegan Rodriguez MD Primary Care Provider [phone] Sharmila Davis APRN, SUPERVISOR ELECTRONIC COILS-C Unavailable Linda Block MD Unavailable [phone] Encounter Details Date Type Department Care Team (Latest Contact Info) Description 05/16/2016 Abstract [facility] Social History Tobacco [...] st Contact Info) Description 09/25/2024 2:00 PM PHOTO MACHINE OPERATOR Appointment [facility] [address] [place] [address] Zayra Powell, SQL DATABASE PROGRAMMER [address] [place] [address] 10/16/2024 3:30 PM PHOTO MACHINE OPERATOR Office Visit [facility] [address] [place] [address] Brit Gonzáles MD [address] [place] [address] documented as of this encounter Visit Diagnoses Not on filedocumented in this encounter Care Teams Laminated Plastics Assembler And Gluer Relationship Specialty Start Date End Date Megan Infante MD [address] [facility] [place] [phone] PCP - General FAMILY PRACTICE 04/06/16 Piyush Pandey MD [place] [employer] Special Agent CARDIOVASCULAR DISEASE 04/06/16 12/28/23 Sharmila Davis APRN, SUPERVISOR ELECTRONIC COILS-C 6[address] [facility] [address] [place] [address] NURSE PRACTITIONER 01/04/17 04/03/24 Linda Block MD 6[address] [facility] [address] [address] [employer] [employer] Special Agent CLINICAL CARDIAC ELECTROPHYSIOLOGY 02/08/17 04/12/23 documented as of this encounter
--- OUTSIDE RECORDS SUMMARY | 2024-09-03 20:45 | XMS_ITS | Encounter Summary ---
Author Organization [facility] Address Critical access hospital6 [facility] [place] [address] [place] [address] Care Team Providers Care Care Team Coordinator Scheduler Name Role Phone Piyush Pandey MD Unavailable Unavailabl Megan Leos MD Primary Care Provider [phone] Sharmila Davis APRN, AGILE TEST LEAD-C Unavailable [phone] Linda Block MD Unavailable [phone] Encounter Details Date Type Department Care Team (Late st Contact Info) Description 05/13/2016 Orders Only [place] [address] , Generic Conversion, Social History [...] (Late Contact Info) Description 09/25/2024 2:00 PM PROFESSIONAL BUILDER Appointment [facility] [address] [place] [address] Zayra Powell, OPS ANALYST [address] [place] [address] 10/16/2024 3:30 PM PROFESSIONAL BUILDER Office Visit [facility] [address] [place] [address] Brit Gonzáles MD 619 [place] [address] documented as of this encounter Procedures Procedure Name Priority Date/Time Associated Diagnosis Comments CBC W/DIFF AUTOMATED STAT 05/13/2016 6:48 PM CDT documented in this encounter Results * (ABNORMAL) CBC W/DIFF AUTOMATED (05/13/2016 6:48 PM CDT) WBC 10.8 4.0 - 10.8 x10'3/uL 05/13/2016 7:07 PM CDT [facility] RBC 4.16(L) 4.50 - 6.10 x10'6/uL 05/13/2016 7:07 PM CDT [facility] HGB 11.8(L) 13.0 - 18.0 G/DL 05/13/2016 7:07 PM CDT [facility] HCT 36.9(L) 37.0 - 52.0 % 05/13/2016 7:07 PM CDT [facility] MCV 88.7 78.0 - 100.0 FL 05/13/2016 7:07 PM CDT [facility] MCH 28.4 27.0 - 31.0 PG 05/13/2016 7:07 PM CDT [facility] MCHC 32.0(L) 33.0 - 36.0 G/DL 05/13/2016 7:07 PM CDT [facility] RDW 15.7(H) 11.5 - 14.5 % 05/13/2016 7:07 PM CDT [facility] PLT 238 150 - 350 x10'3/uL 05/13/2016 7:07 PM CDT [facility] MPV 10.2 7.4 - 10.4 FL 05/13/2016 7:07 PM CDT [facility] ABS. NEUTROPHILS TOTAL 10.25(H) 1.60 - 8.30 x10'3/uL 05/13/2016 7:07 PM CDT [facility] ABS. LYMPHOCYTES 0.30(L) 0.80 - 4.70 x10'3/uL 05/13/2016 7:07 PM CDT [facility] ABS. MONOCYTES 0.20 0.00 - 1.50 x10'3/uL 05/13/2016 7:07 PM CDT [facility] ABS. EOSINOPHILS 0.00 0.00 - 0.40 x10'3/uL 05/13/2016 7:07 PM CDT [facility] ABS. BASOPHILS 0.01 0.00 - 0.20 x10'3/uL 05/13/2016 7:07 PM CDT [facility] ABS. IMMATURE GRANULOCYTES 0.08(H) 0.00 - 0.03 x10'3/uL 05/13/2016 7:07 PM CDT [facility] ABS. NUCLEATED RBC'S 0.00 0.0 x10'3/uL 05/13/2016 7:07 PM CDT [facility] PLASMA SPECIMEN / Unknown 05/13/2016 6:48 PM CDT 05/13/2016 6:57 PM CDT us Generic Conversion Md [facility] Final R esult [facility] [place] [address], [id number] documented in this encounter Visit Diagnoses Not on filedocumented in this encounter Care Teams Care Team Coordinator Scheduler Relationship Specialty Start Date End Date Megan Infante MD [address] [place] [address] PCP - General FAMILY PRACTICE 04/06/16 Piyush Pandey MD [place] Academic Intern CARDIOVASCULAR DISEASE 04/06/16 12/28/23 Sharmila Davis APRN, AGILE TEST LEAD-C [address] [facility] [address] [place] [address] NURSE PRACTITIONER 01/04/17 04/03/24 Linda Block MD [address] [facility] [address] [place] [phone] [place] Academic Intern CLINICAL CARDIAC ELECTROPHYSIOLOGY 02/08/17 04/12/23 documented as of this encounter
--- OUTSIDE RECORDS SUMMARY | 2024-09-03 20:45 | XMS_ITS | Encounter Summary ---
Author Organization [facility] Address [address] [place] [address]. [place] [address] [place] [address] Care Team Providers Care Inventory Transcriber Name Role Phone Piyush Pandey MD [facility] MD Primary Care Provider [phone] Encounter Details Date Type Department Care Team (Late Contact Info) Description 05/21/2016 GANG PLANK WORKMAN ONLY [facility] [address] [place] [address] Piyush Pandey MD Social History Tobacco [...] (Late Contact Info) Description 09/25/2024 2:00 PM PEBBLE MILL OPERATOR Appointment [facility] [address] [place] [address] Zayra Powell, POLYMER ENGINEER [address] [place] [address] 10/16/2024 3:30 PM PEBBLE MILL OPERATOR Office Visit [facility] [address] [place] [phone] Brit Gonzáles MD [address] [place] [address] documented as of this encounter Visit Diagnoses Not on filedocumented in this encounter Care Teams Inventory Transcriber Relationship Specialty Start Date End Date Megan Infante MD [address] [facility] [place] [address] PCP - General FAMILY PRACTICE 04/06/16 Piyush Pandey MD [place] Freight Elevator Operator CARDIOVASCULAR DISEASE 04/06/16 12/28/23 documented as of this encounter
--- OUTSIDE RECORDS SUMMARY | 2024-09-03 20:45 | XMS_ITS | Encounter Summary ---
Author Organization [facility] Address [facility] [place] [address] [place] [address] Care Team Providers Care Traffic Court Referee Name Role Phone Piyush Pandey MD Unavailable Unavailabl Megan Leos MD Primary Care Provider [phone] Sharmila Davis APRN, TOWER SUPERVISOR-C Unavailable [phone] Linda Block MD Unavailable [phone] Encounter Details Date Type Department Care Team (Late st Contact Info) Description 05/14/2016 Orders [place] [address] , Generic Conversion, Social History [...] (Late Contact Info) Description 09/25/2024 2:00 PM TECHNOLOGY TEACHER Appointment [facility] [address] [place] [address] Zayra Powell, LABORER DRIVER [address] [place] [address] 10/16/2024 3:30 PM TECHNOLOGY TEACHER Office Visit [facility] [place] [address] Brit Gonzáles MD [address] [place] [address] documented as of this encounter Procedures Procedure Name Priority Date/Time Associated Diagnosis Comments PHOSPHORUS, INORGANIC PHOSPHATE Routine 05/14/2016 3:35 AM CDT documented in this encounter Results * PHOSPHORUS, INORGANIC PHOSPHATE (05/14/2016 3:35 AM CDT) PHOSPHORUS 3.2 2.2 - 4.2 MG/DL 05/14/2016 4:12 AM CDT [facility] SERUM OR PLASMA SPECIMEN / Unknown 05/14/2016 3:35 AM CDT 05/14/2016 3:42 AM CDT us Generic Conversion Md [facility] Final R esult [facility] [address] [place] [address], [id number] documented in this encounter Visit Diagnoses Not on filedocumented in this encounter Care Teams Traffic Court Referee Relationship Specialty Start Date End Date Megan Infante MD [address] [place] [address] PCP - General FAMILY PRACTICE 04/06/16 Piyush Pandey MD [place] Leather Patcher CARDIOVASCULAR DISEASE 04/06/16 12/28/23 Sharmila Davis APRN, TOWER SUPERVISOR-C [address] [place] [address] NURSE PRACTITIONER 01/04/17 04/03/24 Linda Block MD [id number] [place] [address] [place] Leather Patcher CLINICAL CARDIAC ELECTROPHYSIOLOGY 02/08/17 04/12/23 documented as of this encounter
--- OUTSIDE RECORDS SUMMARY | 2024-09-03 20:45 | XMS_ITS | Encounter Summary ---
Author Organization [facility] Address [address] [place] [address]. [place] [address] [place] [address] Care Team Providers Care Plastic Surgery Technician Name Role Phone Piyush Pandey MD Unavailable Unavailabl Megan Leos MD Primary Care Provider [phone] Sharmila Davis APRN RIGGING HELPER-C Unavailable Linda Block MD Unavailable [phone] Encounter Details Date Type Department Care Team (Late st Contact Info) Description 05/04/[address] [facility] [address] [place] [address] Megna Infante MD [address] [place] [address] Social History Tobacco Use Types Packs/Day [...] (Late Contact Info) Description 09/25/2024 2:00 PM INVERTED BLOCK OPERATOR Appointment [facility] [address] [place] [address] Zayra Powell, BACCARAT DEALER [address] [place] [address] 10/16/2024 3:30 PM INVERTED BLOCK OPERATOR [facility] [address] [place] [address] Brit Gonzáles MD [address] [place] [address] documented as of this encounter Visit Diagnoses Diagnosis Cough documented in this encounter Care Teams Plastic Surgery Technician Relationship Specialty Start Date End Date Megan Infante MD [address] [place] [address] PCP - General FAMILY PRACTICE 04/06/16 Piyush Pandey MD [place] Insurance Specialist CARDIOVASCULAR DISEASE 04/06/16 12/28/23 Sharmila Davis APRN, RIGGING HELPER-C 619 [facility] [address] [place] [address] NURSE PRACTITIONER 01/04/17 04/03/24 Linda Block MD 619 [facility] [address] [place] [address] [place] Insurance Specialist CLINICAL CARDIAC ELECTROPHYSIOLOGY 02/08/17 04/12/23 documented as of this encounter
--- OUTSIDE RECORDS SUMMARY | 2024-09-03 20:45 | XMS_ITS | Encounter Summary ---
Author Organization [facility] Address [facility] [facility] [place] [address] [place] [address] Care Team Providers Care Bull Riveter Name Role Phone Piyush Pandey MD Unavailable Unavailabl Megan Leos MD Primary Care Provider [phone] Sharmila Davis APRN, VERIFIER-C Unavailable [phone] Linda Block MD Unavailable [phone] Encounter Details Date Type Department Care Team (Late st Contact Info) Description 05/15/2016 Orders [place] [address] , Generic Conversion, Social History [...] (Late Contact Info) Description 09/25/2024 2:00 PM HAND WRAPPER OPERATOR Appointment [facility] [address] [place] [address] Zayra Powell, CATTLE RANCHER [address] [place] [address] 10/16/2024 3:30 PM HAND WRAPPER OPERATOR Office Visit [facility] [address] [place] [address] Brit Gonzáles MD [address] [place] [address] documented as of this encounter Procedures Procedure Name Priority Date/Time Associated Diagnosis Comments BASIC METABOLIC PANEL TIMED 05/15/2016 5:50 AM CDT documented in this encounter Results * (ABNORMAL) BASIC METABOLIC PANEL (05/15/2016 5:50 AM CDT) SODIUM S/P/B 139 135 - 147 MMOL/L 05/15/2016 6:50 AM CDT [facility] POTASSIUM S/P/B 3.8 3.5 - 5.0 MMOL/L 05/15/2016 6:50 AM CDT [facility] CHLORIDE S/P/B 101 98 - 107 MMOL/L 05/15/2016 6:50 AM CDT [facility] CO2 29.7(H) 22 - 29 MMOL/L 05/15/2016 6:50 AM CDT [facility] GLUCOSE 174(H) 70 - 109 MG/DL 05/15/2016 6:50 AM CDT [facility] BUN 20 8 - 26 MG/DL 05/15/2016 6:50 AM CDT [facility] CREATININE S/P/B 1.19 0.70 - 1.30 MG/DL 05/15/2016 6:50 AM CDT [facility] CALCIUM S/P/B 8.9 8.8 - 10.0 MG/DL 05/15/2016 6:50 AM CDT [facility] EGFR NON-AFR. AMER. 62 >60 ML/MIN/1.7 3 M2 05/15/2016 6:50 AM CDT [facility] EGFR AFR. AMER. 75 >60 ML/MIN/1.7 3 M2 05/15/2016 6:50 AM CDT [facility] ANION GAP 8.3 MMOL/L 05/15/2016 6:50 AM CDT [facility] OSMOLALITY (CALC) 284 MOSM/KG 05/15/2016 6:50 AM CDT [facility] PLASMA SPECIMEN / Unknown 05/15/2016 5:50 AM CDT 05/15/2016 6:04 AM CDT us Generic Conversion Md [facility] Final R esult [facility] [address] [place] [address], [id number] documented in this encounter Visit Diagnoses Not on filedocumented in this encounter Care Teams Bull Riveter Relationship Specialty Start Date End Date Megan Infante MD [address] [facility] [place] [phone] PCP - General FAMILY PRACTICE 04/06/16 Piyush Pandey MD [place] Automatic Mounter CARDIOVASCULAR DISEASE 04/06/16 12/28/23 Sharmila Davis, VENUE COORDINATOR, VERIFIER-C 619 [facility] [address] [place] [address] NURSE PRACTITIONER 01/04/17 04/03/24 Linda Block MD 619 [facility] [address] [place] [address] [place] Automatic Mounter CLINICAL CARDIAC ELECTROPHYSIOLOGY 02/08/17 04/12/23 documented as of this encounter
--- OUTSIDE RECORDS SUMMARY | 2024-09-03 20:45 | XMS_ITS | Encounter Summary ---
Author Organization [facility] Address [facility] [place] [address] [place] [address] Care Team Providers Care Winch Runner Name Role Phone Piyush Pandey MD Unavailable Unavailabl Megan Leos MD Primary Care Provider [phone] Sharmila Davis APRN, DATABASE MANAGER-C Unavailable [phone] Linda Block MD Unavailable [phone] Encounter Details Date Type Department Care Team (Late st Contact Info) Description 05/13/2016 Orders [place] [address] , Generic Conversion, Social History [...] (Late Contact Info) Description 09/25/2024 2:00 PM COMPUTER SCIENCE INSTRUCTOR Appointment [facility] [address] [place] [address] Zayra Powlel, FENCE INSTALLER [address] [place] [address] 10/16/2024 3:30 PM COMPUTER SCIENCE INSTRUCTOR Office Visit [facility] [address] Brit Gonzáles MD 6[address] [place] [address] documented as of this encounter Procedures Procedure Name Priority Date/Time Associated Diagnosis Comments PROTHROMBIN TIME, VENOUS STAT 05/13/2016 6:48 PM CDT documented in this encounter Results * (ABNORMAL) PROTIME/INR, VENOUS (05/13/2016 6:48 PM CDT) PROTIME 15.9(H) 11.6 - 14.3 SEC 05/13/2016 7:20 PM CDT [facility] INR 1.2(H) 0.9 - 1.1 05/13/2016 7:20 PM CDT [facility] 05/13/2016 6:48 PM CDT 05/13/2016 6:57 PM CDT us Generic Conversion Md [facility] Final R esult [facility] [address] [place] [address], [id number] documented in this encounter Visit Diagnoses Not on filedocumented in this encounter Care Teams Winch Runner Relationship Specialty Start Date End Date Megan Infante MD [address] [facility] [place] [address] PCP - General FAMILY PRACTICE 04/06/16 Piyush Pandey MD [place] Casting Trucker CARDIOVASCULAR DISEASE 04/06/16 12/28/23 Sharmila Davis APRN, DATABASE MANAGER-C [address] [place] [address] [address] [place] [address] NURSE PRACTITIONER 01/04/17 04/03/24 Linda Block MD [address] [facility] [address] [place] [address] [place] Casting Trucker CLINICAL CARDIAC ELECTROPHYSIOLOGY 02/08/17 04/12/23 documented as of this encounter
--- OUTSIDE RECORDS SUMMARY | 2024-09-03 20:45 | XMS_ITS | Encounter Summary ---
Author Organization [facility] Address [facility]6 [facility] [place] [address] [place] [address] Care Team Providers Care Face Burler Name Role Phone Piyush Pandey MD Unavailable Unavailabl Megan Leos MD Primary Care Provider [phone] Sharmila Davis APRN, NIGHT SHIFT-C Unavailable [phone] Linda Block MD Unavailable [phone] Encounter Details Date Type Department Care Team (Late st Contact Info) Description 05/14/2016 Orders Only [place] [address] , Generic Conversion, Social History [...] (Late Contact Info) Description 09/25/2024 2:[address] [facility] [address] [place] [address] Zayra Powell, BUNCHER MACHINE [address] [place] [address] 10/16/2024 3:30 PM BUDDER Office Visit [facility] [address] [place] [address] Brit Gonzáles MD 6[address] [place] [address] documented as of this encounter Procedures Procedure Name Priority Date/Time Associated Diagnosis Comments CBC, AUTO, NO DIFF Routine 05/14/2016 4: 40 PM CDT documented in this encounter Results * (ABNORMAL) CBC, AUTO, NO DIFF (05/14/2016 4:40 PM CDT) WBC 17.0(H) 4.0 - 10.8 x10'3/uL 05/14/2016 5:02 PM CDT [facility] RBC 3.71(L) 4.50 - 6.10 x10'6/uL 05/14/2016 5:02 PM CDT [facility] HGB 10.8(L) 13.0 - 18.0 G/DL 05/14/2016 5:02 PM CDT [facility] HCT 32.9(L) 37.0 - 52.0 % 05/14/2016 5:02 PM CDT [facility] MCV 88.7 78.0 - 100.0 FL 05/14/2016 5:02 PM CDT [facility] MCH 29.1 27.0 - 31.0 PG 05/14/2016 5:02 PM CDT [facility] MCHC 32.8(L) 33.0 - 36.0 G/DL 05/14/2016 5:02 PM CDT [facility] RDW 15.7(H) 11.5 - 14.5 % 05/14/2016 5:02 PM CDT [facility] PLT 223 150 - 350 x10'3/uL 05/14/2016 5:02 PM CDT [facility] MPV 10.7(H) 7.4 - 10.4 FL 05/14/2016 5:02 PM CDT [facility] PLASMA SPECIMEN / Unknown 05/14/2016 4:40 PM CDT 05/14/2016 4:53 PM CDT us Generic Conversion Md [facility] Final R esult [facility] [place] [place] [address], [id number] documented in this encounter Visit Diagnoses Not on filedocumented in this encounter Care Teams Face Burler Relationship Specialty Start Date End Date Megan Infante MD [address] [facility] [place] [address] PCP - General FAMILY PRACTICE 04/06/16 Piyush Pandey MD [place] Supervisor Spring Up CARDIOVASCULAR DISEASE 04/06/16 12/28/23 Sharmila Davis APRN, NIGHT SHIFT-C 6[address] [facility] [address] [place] [address] NURSE PRACTITIONER 01/04/17 04/03/24 Linda Block MD 619 [facility] [address] [place] [address] [place] Supervisor Spring Up CLINICAL CARDIAC ELECTROPHYSIOLOGY 02/08/17 04/12/23 documented as of this encounter
--- OUTSIDE RECORDS SUMMARY | 2024-09-03 20:45 | XMS_ITS | Encounter Summary ---
Author Organization [facility] Address [facility] [place] [address] [place] [address] Care Team Providers Care Lead Programmer Analyst Name Role Phone Piyush Pandey MD Unavailable Unavailabl Megan Leos MD Primary Care Provider [phone] Sharmila Davis APRN, DECKHAND OYSTER DREDGE-C Unavailable [phone] Linda Block MD Unavailable [phone] Encounter Details Date Type Department Care Team (Late st Contact Info) Description 05/14/2016 Orders [place] [address] , Generic Conversion, Social History [...] (Late Contact Info) Description 09/25/2024 2:00 PM JALOUSIES INSTALLER Appointment [facility] [address] [place] [address] Zayra Powell, TRIMMER MEAT [address] [place] [address] 10/16/2024 3:30 PM JALOUSIES INSTALLER Office Visit [facility] [address] [place] [address] Brit Gonzáles MD 619 [place] [address] documented as of this encounter Procedures Procedure Name Priority Date/Time Associated Diagnosis Comments BASIC METABOLIC PANEL Routine 05/14/2016 3:35 AM CDT documented in this encounter Results * (ABNORMAL) BASIC METABOLIC PANEL (05/14/2016 3:35 AM CDT) SODIUM S/P/B 139 135 - 147 MMOL/L 05/14/2016 4:12 AM CDT [facility] POTASSIUM S/P/B 3.5 3.5 - 5.0 MMOL/L 05/14/2016 4:12 AM CDT [facility] CHLORIDE S/P/B 103 98 - 107 MMOL/L 05/14/2016 4:12 AM CDT [facility] CO2 27.2 22 - 29 MMOL/L 05/14/2016 4:12 AM CDT [facility] GLUCOSE 190(H) 70 - 109 MG/DL 05/14/2016 4:12 AM CDT [facility] BUN 16 8 - 26 MG/DL 05/14/2016 4:12 AM CDT [facility] CREATININE S/P/B 1.12 0.70 - 1.30 MG/DL 05/14/2016 4:12 AM CDT [facility] CALCIUM S/P/B 8.8 8.8 - 10.0 MG/DL 05/14/2016 4:12 AM CDT [facility] EGFR NON-AFR. AMER. 67 >60 ML/MIN/1.7 3 M2 05/14/2016 4:12 AM CDT [facility] EGFR AFR. AMER. 81 >60 ML/MIN/1.7 3 M2 05/14/2016 4:12 AM CDT [facility] ANION GAP 8.8 MMOL/L 05/14/2016 4:12 AM CDT [facility] OSMOLALITY (CALC) 284 MOSM/KG 05/14/2016 4:12 AM CDT [facility] PLASMA SPECIMEN / Unknown 05/14/2016 3:35 AM CDT 05/14/2016 3:42 AM CDT us Generic Conversion Md [facility] Final R esult [facility] [address] [place] [address], [id number] documented in this encounter Visit Diagnoses Not on filedocumented in this encounter Care Teams Lead Programmer Analyst Relationship Specialty Start Date End Date Megan Infante MD [address] [facility] [place] [address] PCP - General FAMILY PRACTICE 04/06/16 Piyush Pandey MD [place] Warden CARDIOVASCULAR DISEASE 04/06/16 12/28/23 Sharmila Davis APRN, DECKHAND OYSTER DREDGE-C 619 [facility] [address] [place] [address] NURSE PRACTITIONER 01/04/17 04/03/24 Linda Block MD 619 [facility] [address] [place] [address] [place] [employer] Warden CLINICAL CARDIAC ELECTROPHYSIOLOGY 02/08/17 04/12/23 documented as of this encounter
--- OUTSIDE RECORDS SUMMARY | 2024-09-03 20:45 | XMS_ITS | Encounter Summary ---
Author Organization [facility] Address [facility] [place] [place] [address] [place] [address] Care Team Providers Care Furniture Upholstery Mechanic Name Role Phone Piyush Pandey MD Unavailable Unavailabl Megan Leos MD Primary Care Provider [phone] Sharmila Davis APRN, TRUCK PACKER-C Unavailable [phone] Linda Block MD Unavailable [phone] Encounter Details Date Type Department Care Team (Late st Contact Info) Description 05/14/2016 Orders [place] [address] , Generic Conversion, Social History [...] (Late Contact Info) Description 09/25/2024 2:00 PM ASSOCIATE PROFESSOR OF COUNSELING Appointment [facility] [address] [place] [address] Zayra Powell, PROGRAM LEAD [address] [place] [address] 10/16/2024 3:30 PM ASSOCIATE PROFESSOR OF COUNSELING Office Visit [facility] [place] [address] Brit Gonzáles MD 619 [place] [address] documented as of this encounter Procedures Procedure Name Priority Date/Time Associated Diagnosis Comments POCT GLUCOSE - VALLECILLO DOCKED DEVICE Routine 05/14/2016 10:13 AM CDT documented in this encounter Results * (ABNORMAL) POCT glucose (05/14/2016 10:13 AM CDT) GLUCOSE POC 190(H) 70 - 109 05/14/2016 1:14 PM CDT [facility] ORDERS INTERFACE WHOLE BLOOD SPECIMEN / Unknown 05/14/2016 10:13 AM CDT 05/14/2016 1:14 PM CDT us Generic Conversion Md [facility] POCT ORDERABLES - DEVIC E Final Result [facility] ORDERS INTERFACE US documented in this encounter Visit Diagnoses Not on filedocumented in this encounter Care Teams Furniture Upholstery Mechanic Relationship Specialty Start Date End Date Megan Infante MD [address] [address] PCP - General FAMILY PRACTICE 04/06/16 Piyush Pandey MD [place] Sheet Folder CARDIOVASCULAR DISEASE 04/06/16 12/28/23 Sharmila Davis APRN, TRUCK PACKER-C 619 [facility] 47 [place] [address] NURSE PRACTITIONER 01/04/17 04/03/24 Linda Block MD [address] [facility] [address] [place] [address] [place] Sheet Folder CLINICAL CARDIAC ELECTROPHYSIOLOGY 02/08/17 04/12/23 documented as of this encounter
--- OUTSIDE RECORDS SUMMARY | 2024-09-03 20:45 | XMS_ITS | Encounter Summary ---
Author Organization [facility] Address [facility] [place] [address] [place] [address] Care Team Providers Care Manager Costing Name Role Phone Piyush Pandey MD Unavailable Unavailabl Megan Leos MD Primary Care Provider [phone] Sharmila Davis APRN, PSYCHOSOCIAL REHABILITATION COUNSELOR-C Unavailable [phone] Linda Block MD Unavailable [phone] Encounter Details Date Type Department Care Team (Late st Contact Info) Description 05/17/2016 Orders [place] [address] , Generic Conversion, Social History [...] (Late Contact Info) Description 09/25/2024 2:[address] [facility] [address] [place] [address] Zayra Powell, SURVEILLANCE AGENT [address] [place] [address] 10/16/2024 3:30 PM HHAS Office Visit [facility] [address] Brit Gonzáles MD 619 [place] [address] documented as of this encounter Procedures Procedure Name Priority Date/Time Associated Diagnosis Comments POCT GLUCOSE - VALLECILLO DOCKED DEVICE Routine 05/17/2016 8:39 AM CDT documented in this encounter Results * (ABNORMAL) POCT glucose (05/17/2016 8:39 AM CDT) GLUCOSE POC 159(H) 70 - 109 05/17/2016 9:37 AM CDT [facility] ORDERS INTERFACE WHOLE BLOOD SPECIMEN / Unknown 05/17/2016 8:39 AM CDT 05/17/2016 9:37 AM CDT us Generic Conversion Md [facility] POCT ORDERABLES - DEVIC E Final Result [facility] ORDERS INTERFACE US documented in this encounter Visit Diagnoses Not on filedocumented in this encounter Care Teams Manager Costing Relationship Specialty Start Date End Date Megan Infante MD [address] [facility] [place] [address] PCP - General FAMILY PRACTICE 04/06/16 Piyush Pandey MD [place] Paperhanger Apprentice CARDIOVASCULAR DISEASE 04/06/16 12/28/23 Sharmila Davsi APRN, PSYCHOSOCIAL REHABILITATION COUNSELOR-C 619 [facility] 47 [place] [address] NURSE PRACTITIONER 01/04/17 04/03/24 Linda Block MD 6[address] [facility] [address] [place] [phone] [place] Paperhanger Apprentice CLINICAL CARDIAC ELECTROPHYSIOLOGY 02/08/17 04/12/23 documented as of this encounter
--- OUTSIDE RECORDS SUMMARY | 2024-09-03 20:45 | XMS_ITS | Encounter Summary ---
Author Organization [facility] Address [address] [place] [address]. [place] [address] [place] [address] Care Team Providers Care Well Head Pumper Name Role Phone Piyush Pandey MD Unavailable Unavailabl e Megan Infante MD Primary Care Provider [phone] Sharmila Davis APRN, CENTRAL SERVICE TECH-C Unavailable Linda Block MD Unavailable [phone] Encounter Details Date Type Department Care Team (Late st Contact Info) Description 05/13/2016 Abstract [facility] [address] [place] [address] Kyle Pop MD Musinipally, Sunil, MD [address] [place] [address] Social History Tobacco Use Types Packs/Day Years [...] st Contact Info) Description 09/25/2024 2:00 PM TEAROOM HOST/HOSTESS Appointment [facility] [address] [place] [address] Zayra Powell, FOREST FIRE LOOKOUT [address] [place] [facility] 10/16/2024 3:30 PM TEAROOM HOST/HOSTESS Office Visit [facility] [address] [place] [address] Brit Gonzáles MD 619 [place] [address] documented as of this encounter Visit Diagnoses Diagnosis Acute on chronic diastolic congestive heart failure ([facility]) Acute on chronic diastolic heart failure documented in this encounter Care Teams Well Head Pumper Relationship Specialty Start Date End Date Megan Infante MD [address] [place] [address] PCP - General FAMILY PRACTICE 04/06/16 Piyush Pandey MD [place] Slasher Runner CARDIOVASCULAR DISEASE 04/06/16 12/28/23 Sharmila Davis APRN, CENTRAL SERVICE TECH-C [address] [facility] [address] [place] [address] NURSE PRACTITIONER 01/04/17 04/03/24 Linda Block MD [address] [facility] [address] [place] [address] [place] Slasher Runner CLINICAL CARDIAC ELECTROPHYSIOLOGY 02/08/17 04/12/23 documented as of this encounter
--- OUTSIDE RECORDS SUMMARY | 2024-09-03 20:45 | XMS_ITS | Encounter Summary ---
Author Organization [facility] Address [facility]6 [facility] [place] [address] [place] [address] Care Team Providers Care Teachers Assistant Name Role Phone Piyush Pandey MD Unavailable Unavailabl Megan Leos MD Primary Care Provider [phone] Sharmila Davis APRN, HIGHER EDUCATION ADMINISTRATOR-C Unavailable [phone] Linda Block MD Unavailable [phone] Encounter Details Date Type Department Care Team (Late st Contact Info) Description 05/13/2016 Orders Only [place] [address] , Generic Conversion, Social History [...] (Late Contact Info) Description 09/25/2024 2:00 PM [address] ENGINEER Appointment [facility] [address] [place] [address] Zayra Powell, OFFICE ADMIN [address] [place] [address] 10/16/2024 3:30 PM CORROSION ENGINEER Office Visit [facility] [address] [place] [address] Brit Gonzáles MD [address] [place] [address] documented as of this encounter Procedures Procedure Name Priority Date/Time Associated Diagnosis Comments COMPREHENSIVE METABOLIC PANEL STAT 05/13/2016 6:48 PM CDT documented in this encounter Results * (ABNORMAL) COMPREHENSIVE METABOLIC PANEL (05/13/2016 6:48 PM CDT) SODIUM S/P/B 141 135 - 147 MMOL/L 05/13/2016 7:33 PM CDT [facility] POTASSIUM S/P/B 4.2 3.5 - 5.0 MMOL/L 05/13/2016 7:33 PM CDT [facility] CHLORIDE S/P/B 103 98 - 107 MMOL/L 05/13/2016 7:33 PM CDT [facility] CO2 23.8 22 - 29 MMOL/L 05/13/2016 7:33 PM CDT [facility] GLUCOSE 213(H) 70 - 109 MG/DL 05/13/2016 7:33 PM CDT [facility] BUN 13 8 - 26 MG/DL 05/13/2016 7:33 PM CDT [facility] CREATININE S/P/B 1.14 0.70 - 1.30 MG/DL 05/13/2016 7:33 PM CDT [facility] CALCIUM S/P/B 9.9 8.8 - 10.0 MG/DL 05/13/2016 7:33 PM CDT [facility] BILIRUBIN TOTAL S/P/B 2.4(H) 0.2 - 1.2 MG/DL 05/13/2016 7:33 PM CDT [facility] ALKALINE PHOSPHATASE S/P/B 136(H) 45 - 115 U/L 05/13/2016 7:33 PM CDT [facility] AST 23 5 - 35 U/L 05/13/2016 7:33 PM CDT [facility] ALT 62(H) 0 - 55 U/L 05/13/2016 7:33 PM CDT [facility] TOTAL PROTEIN S/P/B 7.7 6.0 - 8.3 G/DL 05/13/2016 7:33 PM CDT [facility] ALBUMIN S/P/B 4.3 3.4 - 4.9 G/DL 05/13/2016 7:33 PM CDT [facility] ANION GAP 14.2 MMOL/L 05/13/2016 7:33 PM CDT [facility] OSMOLALITY (CALC) 288 MOSM/KG 05/13/2016 7:33 PM CDT [facility] EGFR NON-AFR. AMER. 65 >60 ML/MIN/1.7 3 M2 05/13/2016 7:33 PM CDT [facility] EGFR AFR. AMER. 79 >60 ML/MIN/1.7 3 M2 05/13/2016 7:33 PM CDT [facility] PLASMA SPECIMEN / Unknown 05/13/2016 6:48 PM CDT 05/13/2016 6:58 PM CDT us Generic Conversion Md [facility] Final R esult [facility] [place] [place] [address], [id number] documented in this encounter Visit Diagnoses Not on filedocumented in this encounter Care Teams Teachers Assistant Relationship Specialty Start Date End Date Megan Infante MD [address] [place] [address] [place] [address] PCP - General FAMILY PRACTICE 04/06/16 Piyush Pandey MD [place] Assembler Metal Building CARDIOVASCULAR DISEASE 04/06/16 12/28/23 Sharmila Davis APRN, HIGHER EDUCATION ADMINISTRATOR-C [address] [facility] [address] [place] [address] NURSE PRACTITIONER 01/04/17 04/03/24 Linda Block MD [address] [facility] [address] [place] [address] [place] Assembler [employer] Building CLINICAL CARDIAC ELECTROPHYSIOLOGY 02/08/17 04/12/23 documented as of this encounter
--- OUTSIDE RECORDS SUMMARY | 2024-09-03 20:45 | XMS_ITS | Encounter Summary ---
Author Organization [facility] Address [facility]6 [facility] [place] [address] [place] [address] Care Team Providers Care Senior Medical Writer Name Role Phone Piyush Pandey MD Unavailable UnavailMegan Rodriguez MD Primary Care Provider [phone] Sharmila Davis APRN, SHAREBROKER-C Unavailable [phone] Linda Block MD Unavailable [phone] Encounter Details Date Type Department Care Team (Latest Contact Info) Description 05/13/2016 Abstract [facility] Social History Tobacco Use [...] Contact Info) Description 09/25/2024 2:00 PM CLAY MIXER Appointment [facility] [address] [place] [address] Zayra Powell, CUFF SETTER LOCKSTITCH [address] [place] [address] 10/16/2024 3:30 PM CLAY MIXER Office Visit [facility] [address] [place] [address] Brit Gonzáles MD [address] [place] [address] documented as of this encounter Visit Diagnoses Not on filedocumented in this encounter Care Teams Senior Medical Writer Relationship Specialty Start Date End Date Megan Infante MD [address] [facility] [place] [address] PCP - General FAMILY PRACTICE 04/06/16 Piyush Pandey MD [place] Truck Driver Heavy CARDIOVASCULAR DISEASE 04/06/16 12/28/23 Sharmila Davis APRN, SHAREBROKER-C 619 [facility] [address] [place] [address] NURSE PRACTITIONER 01/04/17 04/03/24 Linda Block MD 619 [facility] [address] [address] Cooter Truck Driver Heavy CLINICAL CARDIAC ELECTROPHYSIOLOGY 02/08/17 04/12/23 documented as of this encounter
--- OUTSIDE RECORDS SUMMARY | 2024-09-03 20:45 | XMS_ITS | Encounter Summary ---
Author Organization [facility] Address [facility]6 [place] [address] [place] [address] Care Team Providers Care Authorization Coordinator Name Role Phone Piyush Pandey MD Unavailable Unavailabl Megan Leos MD Primary Care Provider [phone] Sharmila Davis APRN, CAMERA TECHNICIAN-C Unavailable Linda Block MD Unavailable [phone] Encounter Details Date Type Department Care Team (Latest Contact Info) Description 05/25/2016 Abstract [facility] Medical Group Shubham Callahan MD [address] [place] [address] Social History Tobacco Use Types Packs/Day Years [...] st Contact Info) Description 09/25/2024 2:00 PM ETL PROGRAMMER Appointment [facility] [address] [place] [address] Zayra Powell, WASTEWATER PLANT CIVIL ENGINEER [address] [place] [address] 10/16/2024 3:30 PM ETL PROGRAMMER [facility] [address] [place] [address] Brit Gonzáles MD [address] [place] [address] documented as of this encounter Visit Diagnoses Not on filedocumented in this encounter Care Teams Authorization Coordinator Relationship Specialty Start Date End Date Megan Infante MD [address] [place] [phone] PCP - General FAMILY PRACTICE 04/06/16 Piyush Pandye MD [place] Director [employer] CARDIOVASCULAR DISEASE 04/06/16 12/28/23 Sharmila Davis APRN, CAMERA TECHNICIAN-C [address] [facility] [address] [place] [phone] NURSE PRACTITIONER 01/04/17 04/03/24 Linda Block MD 619 [facility] [address] [place] [address] [place] Director Nursery School CLINICAL CARDIAC ELECTROPHYSIOLOGY 02/08/17 04/12/23 documented as of this encounter
--- OUTSIDE RECORDS SUMMARY | 2024-09-03 20:45 | XMS_ITS | Encounter Summary ---
Author Organization [facility] Address [facility]6 [facility] [place] [address] [place] [address] Care Team Providers Care Poem Writer Name Role Phone Piyush Pandey MD Unavailable Unavailabl Megan Leos MD Primary Care Provider [phone] Sharmila Davis APRN, CHILD CARE PROVIDER-C Unavailable [phone] Linda Block MD Unavailable [phone] Encounter Details Date Type Department Care Team (Late st Contact Info) Description 05/13/2016 Orders Only [place] [address] , Generic Conversion, Social History [...] (Late Contact Info) Description 09/25/2024 2:00 PM CAMP RECREATION SPECIALIST Appointment [facility] [address] [place] [address] Zayra Powell, MIDDLEWARE CONSULTANT [address] [place] [address] 10/16/2024 3:30 PM CAMP RECREATION SPECIALIST Office Visit [facility] [address] Brit Gonzáles MD 619 [place] [address] documented as of this encounter Procedures Procedure Name Priority Date/Time Associated Diagnosis Comments POCT GLUCOSE - VALLECILLO DOCKED DEVICE Routine 05/13/2016 4:45 PM CDT documented in this encounter Results * (ABNORMAL) POCT glucose (05/13/2016 4:45 PM CDT) GLUCOSE POC 195(H) 70 - 109 05/13/2016 4:53 PM CDT [facility] ORDERS INTERFACE WHOLE BLOOD SPECIMEN / Unknown 05/13/2016 4:45 PM CDT 05/13/2016 4:53 PM CDT us Generic Conversion Md LANDRY POCT ORDERABLES - DEVIC E Final Result [facility] ORDERS INTERFACE US documented in this encounter Visit Diagnoses Not on filedocumented in this encounter Care Teams Poem Writer Relationship Specialty Start Date End Date Megan Infante MD [address] [facility] [place] [phone] PCP - General FAMILY PRACTICE 04/06/16 Piyush Pandey MD [place] Holiday Detector Operator CARDIOVASCULAR DISEASE 04/06/16 12/28/23 Sharmila Davis APRN, CHILD CARE PROVIDER-C 619 [facility] [address] [place] [address] NURSE PRACTITIONER 01/04/17 04/03/24 Linda Block MD 619 [facility] [address] [place] [address] [place] Holiday Detector Operator CLINICAL CARDIAC ELECTROPHYSIOLOGY 02/08/17 04/12/23 documented as of this encounter
--- OUTSIDE RECORDS SUMMARY | 2024-09-03 20:45 | XMS_ITS | Encounter Summary ---
Author Organization [facility] Address [facility]6 [facility] [place] [address] [place] [address] Care Team Providers Care Crossing Gateman Name Role Phone Piyush Pandey MD Unavailable Unavailabl Megan Leos MD Primary Care Provider [phone] Sharmila Davis APRN, SAWMILL MANAGER-C Unavailable [phone] Linda Block MD Unavailable [phone] Encounter Details Date Type Department Care Team (Late st Contact Info) Description 05/15/2016 Orders [place] [address] , Generic Conversion, Social History [...] (Late Contact Info) Description 09/25/2024 2:00 PM [address]PER Appoint[address] [facility] [address] [place] [address] Zayra Powell, GENERAL I FARMWORKER [address] [place] [address] 10/16/2024 3:30 PM MOLDER HELPER Office Visit [facility] [address] Brit Gonzáles MD [address] [place] [address] documented as of this encounter Procedures Procedure Name Priority Date/Time Associated Diagnosis Comments POCT GLUCOSE - VALLECILLO DOCKED DEVICE Routine 05/15/2016 7:19 PM CDT documented in this encounter Results * (ABNORMAL) POCT glucose (05/15/2016 7:19 PM CDT) GLUCOSE POC 139(H) 70 - 109 05/16/2016 1:51 AM CDT [facility] ORDERS INTERFACE WHOLE BLOOD SPECIMEN / Unknown 05/15/2016 7:19 PM CDT 05/16/2016 1:51 AM CDT us Generic Conversion Md LANDRY POCT ORDERABLES - DEVIC E Final Result [facility] ORDERS INTERFACE US documented in this encounter Visit Diagnoses Not on filedocumented in this encounter Care Teams Crossing Gateman Relationship Specialty Start Date End Date Megan Infante MD [address] [facility] [place] [phone] PCP - General FAMILY PRACTICE 04/06/16 Piyush Pandey MD [facility] Intake Technician CARDIOVASCULAR DISEASE 04/06/16 12/28/23 Sharmila Davis APRN, SAWMILL MANAGER-C [address] [facility] 47 [place] [address] NURSE PRACTITIONER 01/04/17 04/03/24 Linda Block MD 619 [facility] [address] [place] [address] [facility] Intake Technician CLINICAL CARDIAC ELECTROPHYSIOLOGY 02/08/17 04/12/23 documented as of this encounter
--- OUTSIDE RECORDS SUMMARY | 2024-09-03 20:45 | XMS_ITS | Encounter Summary ---
Author Organization [facility] Address [address] [place] [address]. [place] [address] [place] [address] Care Team Providers Care Research Assistant Professor Name Role Phone Piyush Pandey MD [facility] Megan Bridges MD Primary Care Provider [phone] Reason for Visit * Reason Onset Date Comments Results 05/13/2016 Encounter Details Date Type Department Care Team (Late Contact Info) Description 05/13/2016 Telephone [facility] [address] [address] Piyush Pandey MD Results Social [...] Contact Info) Description 09/25/2024 2:00 PM ACCOUNT DIRECTOR Appointment [facility] [address] [place] [address] Zayra Powell, AVIATION MAINTENANCE INSTRUCTOR [address] [place] [address] 10/16/2024 3:30 PM ACCOUNT DIRECTOR Office Visit [facility] [address] [place] [phone] Brit Gonzáles MD [address] [place] [address] documented as of this encounter Visit Diagnoses Not on filedocumented in this encounter Care Teams Research Assistant Professor Relationship Specialty Start Date End Date Megan Infante MD [address] [facility] [place] [address] PCP - General FAMILY PRACTICE 04/06/16 Piyush Pandey MD [place] Senior [employer] CARDIOVASCULAR DISEASE 04/06/16 12/28/23 documented as of this encounter
--- OUTSIDE RECORDS SUMMARY | 2024-09-03 20:45 | XMS_ITS | Encounter Summary ---
Author Organization [facility] Address [facility] [place] [address] [place] [address] Care Team Providers Care Transportation Director Name Role Phone Piyush Pandey MD Unavailable Unavailabl Megan Leos MD Primary Care Provider [phone] Sharmila Davis APRN, CHIEF RISK OFFICER-C Unavailable [phone] Linda Block MD Unavailable [phone] Encounter Details Date Type Department Care Team (Late st Contact Info) Description 05/14/2016 Orders Only [place] [address] , Generic Conversion, Social History [...] (Late Contact Info) Description 09/25/2024 2:00 PM FUEL TRUCK DRIVER Appointment [facility] [address] [place] [address] Zayra Powell, ELECTRICAL CALIBRATOR [address] [place] [address] 10/16/2024 3:30 PM FUEL TRUCK DRIVER Office Visit [facility] [address] [place] [address] Brit Gonzáles MD [address] [place] [address] documented as of this encounter Procedures Procedure Name Priority Date/Time Associated Diagnosis Comments MAGNESIUM Routine 05/14/2016 3:35 AM CDT documented in this encounter Results * MAGNESIUM (05/14/2016 3:35 AM CDT) MAGNESIUM 2.1 1.6 - 2.6 MG/DL 05/14/2016 4:[address] [facility] SERUM OR PLASMA SPECIMEN / Unknown 05/14/2016 3:35 AM CDT 05/14/2016 3:42 AM CDT us Generic Conversion Md [facility] Final R esult [facility] [address] [place] [address], [id number] documented in this encounter Visit Diagnoses Not on filedocumented in this encounter Care Teams Transportation Director Relationship Specialty Start Date End Date Megan Infante MD [address] [place] [address] PCP - General FAMILY PRACTICE 04/06/16 Piyush Pandey MD [place] Service Technician Copier CARDIOVASCULAR DISEASE 04/06/16 12/28/23 Sharmila Davis APRN, CHIEF RISK OFFICER-C [address] [phone] NURSE PRACTITIONER 01/04/17 04/03/24 Linda Block MD 619 [facility] [address] [phone] [place] Service Technician Copier CLINICAL CARDIAC ELECTROPHYSIOLOGY 02/08/17 04/12/23 documented as of this encounter
--- OUTSIDE RECORDS SUMMARY | 2024-09-03 20:45 | XMS_ITS | Encounter Summary ---
Author Organization [facility] Address [address] [place] [address]. [place] [address] [place] [address] Care Team Providers Care Research Fellow Name Role Phone Piyush Pandey MD [facility] Megan Bridges MD Primary Care Provider [phone] Encounter Details Date Type Department Care Team (Late st Contact Info) Description 04/07/2016 Scan [facility] [address] [place] [phone] Scanned, Documents Social History Tobacco Use [...] (Late Contact Info) Description 09/25/2024 2:00 PM TRIAGE SPECIALIST Appointment [facility] [address] [place] [address] Zayra Powell, WASTE MACHINE OPERATOR [address] [place] [address] 10/16/2024 3:30 PM TRIAGE SPECIALIST Office Visit [facility] [address] [place] [phone] Brit Gonzáles MD [address] [place] [address] documented as of this encounter Visit Diagnoses Not on filedocumented in this encounter Care Teams Research Fellow Relationship Specialty Start Date End Date Megan Infante MD [address] [facility] [place] [address] PCP - General FAMILY PRACTICE 04/06/16 Piyush Pandey MD [place] Hvac Estimator CARDIOVASCULAR DISEASE 04/06/16 12/28/23 documented as of this encounter
--- OUTSIDE RECORDS SUMMARY | 2024-09-03 20:45 | XMS_ITS | Encounter Summary ---
Author Organization [facility] Address [facility] [place] [address] [place] [address] Care Team Providers Care Buncher Operator Name Role Phone Piyush Pandey MD Unavailable Unavailabl Megan Leos MD Primary Care Provider [phone] Sharmila Davis APRN, PHOTOGRAPHIC HAND DEVELOPER-C Unavailable [phone] Linda Block MD Unavailable [phone] Encounter Details Date Type Department Care Team (Late st Contact Info) Description 05/16/2016 Orders Only [place] [address] , Generic Conversion, Social History [...] (Late Contact Info) Description 09/25/2024 2:00 PM FILING OR REGISTRY CLERK [facility]ointment [facility] [address] [place] [address] Zayra Powell, MANAGER INTERNET [address] [place] [address] 10/16/2024 3:30 PM FILING OR REGISTRY CLERK Office Visit [facility] [address] [place] [phone] Brit Gonzáles MD [address] [place] [address] documented as of this encounter Procedures Procedure Name Priority Date/Time Associated Diagnosis Comments POCT GLUCOSE - VALLECILLO DOCKED DEVICE Routine 05/16/2016 8:05 AM CDT documented in this encounter Results * (ABNORMAL) POCT glucose (05/16/2016 8:05 AM CDT) GLUCOSE POC 154(H) 70 - 109 05/16/2016 11:58 PM CDT [facility] ORDERS INTERFACE WHOLE BLOOD SPECIMEN / Unknown 05/16/2016 8:05 AM CDT 05/16/2016 11:57 PM CDT us Generic Conversion Md LANDRY POCT ORDERABLES - DEVIC E Final Result [facility] ORDERS INTERFACE US documented in this encounter Visit Diagnoses Not on filedocumented in this encounter Care Teams Buncher Operator Relationship Specialty Start Date End Date Megan Infante MD [address] [place] [phone] PCP - General FAMILY PRACTICE 04/06/16 Piyush Pandey MD [place] Weed Control Inspector CARDIOVASCULAR DISEASE 04/06/16 12/28/23 Sharmila Davis APRN, PHOTOGRAPHIC HAND DEVELOPER-C 619 [facility] 47 [place] [address] NURSE PRACTITIONER 01/04/17 04/03/24 Linda Block MD 619 [facility] [address] [place] [phone] [place] Weed Control Inspector CLINICAL CARDIAC ELECTROPHYSIOLOGY 02/08/17 04/12/23 documented as of this encounter
--- OUTSIDE RECORDS SUMMARY | 2024-09-03 20:45 | XMS_ITS | Encounter Summary ---
Author Organization [facility] Address [facility]6 [facility] [address] [place] [address] Care Team Providers Care Electronic Equipment Repairer Name Role Phone Amauri Pandey MD Unavailable Unavailabl e Megan Infante MD Primary Care Provider [phone] Sharmila Davis APRN, PHYSICIAN SUPPORT COORDINATOR-C Unavailable Linda Block MD Unavailable [phone] Encounter Details Date Type Department Care Team (Latest Contact Info) Description 05/14/2016 Abstract [facility] Medical Group , Eun Tejeda [...] Philip MD - 05/14/2016 7:50 PM CDT [place] [place] [facility] Patient Name: OBIE SIMS Patient Location: [id number] Date of : 1955 Med Rec #: [id number] Admit/Service Date: 05/13/2016 Disch Date: Attending Physician: Kamari Philip MD Date/Time Dictated: Transcribed Date/Time: 05/14/2016 19:50 p.m. Surgery Date: 05/14/2016 cc: Zora Callahan MD Sunil Musinipally, M.D. Chart Document Echocardiography Report Pat.Name: OBIE SIMS Pat.ID: [id number] .Date: 05/14/2016 Refer.MD: AMAURI PANDEY Exam Time: [...] st Contact Info) Description 09/25/2024 2:00 PM DISASTER RECOVERY CONSULTANT Appointment [facility] [address] [place] [address] Zayra Powell, SERVICE STATION OPERATOR [address] [place] [address] 10/16/2024 3:30 PM DISASTER RECOVERY CONSULTANT Office Visit [facility] [address] [place] [phone] Brit Gonzáles MD 619 [place] [address] documented as of this encounter Visit Diagnoses Not on filedocumented in this encounter Care Teams Electronic Equipment Repairer Relationship Specialty Start Date End Date Megan Infante MD [address] [facility] [place] [address] PCP - General FAMILY PRACTICE 04/06/16 Amauri Pandey MD [place] Pastry Chef CARDIOVASCULAR DISEASE 04/06/16 12/28/23 Sharmila Davis, TRUCK DRIVER HEAVY, PHYSICIAN SUPPORT COORDINATOR-C [address] [place] [id number] [place] [address] NURSE PRACTITIONER 01/04/17 04/03/24 Linda Block MD 619 [facility] [address] [place] [phone] [place] Pastry Chef CLINICAL CARDIAC ELECTROPHYSIOLOGY 02/08/17 04/12/23 documented as of this encounter
--- OUTSIDE RECORDS SUMMARY | 2024-09-03 20:45 | XMS_ITS | Encounter Summary ---
Author Organization [facility] Address [facility] [place] [address] [place] [address] Care Team Providers Care Slack Line Yarder Name Role Phone Piyush Pandey MD Unavailable Unavailabl Megan Leos MD Primary Care Provider [phone] Sharmila Davis APRN, FARMWORKER GENERAL-C Unavailable [phone] Linda Block MD Unavailable [phone] Encounter Details Date Type Department Care Team (Late st Contact Info) Description 05/15/2016 Orders Only [place] [address] , Generic Conversion, Social History [...] (Late Contact Info) Description 09/25/2024 2:00 PM CHE[address]Y ASSOCIATE Appointment [facility] [address] [place] [address] Zayra Powell, DUCO POLISHER [address] [place] [address] 10/16/2024 3:30 PM CHEMISTRY ASSOCIATE Office Visit [facility] [address] [place] [address] Brit Gonzáles MD [address] [place] [address] documented as of this encounter Procedures Procedure Name Priority Date/Time Associated Diagnosis Comments CBC W/DIFF AUTOMATED TIMED 05/15/2016 5:50 AM CDT documented in this encounter Results * (ABNORMAL) CBC W/DIFF AUTOMATED (05/15/2016 5:50 AM CDT) WBC 12.3(H) 4.0 - 10.8 x10'3/uL 05/15/2016 6:13 AM CDT [facility] RBC 3.52(L) 4.50 - 6.10 x10'6/uL 05/15/2016 6:13 AM CDT [facility] HGB 10.2(L) 13.0 - 18.0 G/DL 05/15/2016 6:13 AM CDT [facility] HCT 31.6(L) 37.0 - 52.0 % 05/15/2016 6:13 AM CDT [facility] MCV 89.8 78.0 - 100.0 FL 05/15/2016 6:13 AM CDT [facility] MCH 29.0 27.0 - 31.0 PG 05/15/2016 6:13 AM CDT [facility] MCHC 32.3(L) 33.0 - 36.0 G/DL 05/15/2016 6:13 AM CDT [facility] RDW 15.7(H) 11.5 - 14.5 % 05/15/2016 6:13 AM CDT [facility] PLT 211 150 - 350 x10'3/uL 05/15/2016 6:13 AM CDT [facility] MPV 10.6(H) 7.4 - 10.4 FL 05/15/2016 6:13 AM CDT [facility] ABS. NEUTROPHILS TOTAL 9.53(H) 1.60 - 8.30 x10'3/uL 05/15/2016 6:13 AM CDT [facility] ABS. LYMPHOCYTES 1.19 0.80 - 4.70 x10'3/uL 05/15/2016 6:13 AM CDT [facility] ABS. MONOCYTES 1.47 0.00 - 1.50 x10'3/uL 05/15/2016 6:13 AM CDT [facility] ABS. EOSINOPHILS 0.04 0.00 - 0.40 x10'3/uL 05/15/2016 6:13 AM CDT [facility] ABS. BASOPHILS 0.03 0.00 - 0.20 x10'3/uL 05/15/2016 6:13 AM CDT [facility] ABS. IMMATURE GRANULOCYTES 0.05(H) 0.00 - 0.03 x10'3/uL 05/15/2016 6:13 AM CDT [facility] ABS. NUCLEATED RBC'S 0.00 0.0 x10'3/uL 05/15/2016 6:13 AM CDT [facility] PLASMA SPECIMEN / Unknown 05/15/2016 5:50 AM CDT 05/15/2016 6:04 AM CDT us Generic Conversion Md [facility] Final R esult [facility] [place] [place] [address], [id number] documented in this encounter Visit Diagnoses Not on filedocumented in this encounter Care Teams Slack Line Yarder Relationship Specialty Start Date End Date Megan Infante MD [address] [facility] [place] [phone] PCP - General FAMILY PRACTICE 04/06/16 Piyush Pandey MD [place] Manager Transport CARDIOVASCULAR DISEASE 04/06/16 12/28/23 Sharmila Davis APRN, FARMWORKER GENERAL-C [address] [facility] [address] [place] [address] NURSE PRACTITIONER 01/04/17 04/03/24 Linda Block MD [address] [facility] [address] [place] [phone] [place] Manager Transport CLINICAL CARDIAC ELECTROPHYSIOLOGY 02/08/17 04/12/23 documented as of this encounter
--- OUTSIDE RECORDS SUMMARY | 2024-09-03 20:45 | XMS_ITS | Encounter Summary ---
Author Organization [facility] Address [facility] [place] [address] [place] [address] Care Team Providers Care Scheduling Administrator Name Role Phone Piyush Pandey MD Unavailable Unavailabl Megan Leos MD Primary Care Provider [phone] Sharmila Davis APRN, WATER MANGLE TENDER-C Unavailable [phone] Linda Block MD Unavailable [phone] Encounter Details Date Type Department Care Team (Late st Contact Info) Description 05/16/2016 Orders [place] [address] , Generic Conversion, Social History [...] (Late Contact Info) Description 09/25/2024 2:00 PM DIRECTOR RIVER RESTORATION Appointment [facility] [address] [place] [address] Zayra Powell, FRUIT LOADER MACHINE OPERATOR [address] [place] [address] 10/16/2024 3:30 PM DIRECTOR RIVER RESTORATION Office Visit [facility] [address] [place] [address] Brit Gonzáles MD [address] [place] [address] documented as of this encounter Procedures Procedure Name Priority Date/Time Associated Diagnosis Comments BASIC METABOLIC PANEL TIMED 05/16/2016 5:08 AM CDT documented in this encounter Results * (ABNORMAL) BASIC METABOLIC PANEL (05/16/2016 5:08 AM CDT) SODIUM S/P/B 139 135 - 147 MMOL/L 05/16/2016 6:04 AM CDT [facility] POTASSIUM S/P/B 3.7 3.5 - 5.0 MMOL/L 05/16/2016 6:04 AM CDT [facility] CHLORIDE S/P/B 100 98 - 107 MMOL/L 05/16/2016 6:04 AM CDT [facility] CO2 31.8(H) 22 - 29 MMOL/L 05/16/2016 6:04 AM CDT [facility] GLUCOSE 137(H) 70 - 109 MG/DL 05/16/2016 6:04 AM CDT [facility] BUN 18 8 - 26 MG/DL 05/16/2016 6:04 AM CDT [facility] CREATININE S/P/B 1.02 0.70 - 1.30 MG/DL 05/16/2016 6:04 AM CDT [facility] CALCIUM S/P/B 9.3 8.8 - 10.0 MG/DL 05/16/2016 6:04 AM CDT [facility] EGFR NON-AFR. AMER. 74 >60 ML/MIN/1.7 3 M2 05/16/2016 6:04 AM CDT [facility] EGFR AFR. AMER. 90 >60 ML/MIN/1.7 3 M2 05/16/2016 6:04 AM CDT [facility] ANION GAP 7.2 MMOL/L 05/16/2016 6:04 AM CDT [facility] OSMOLALITY (CALC) 282 MOSM/KG 05/16/2016 6:04 AM CDT [facility] PLASMA SPECIMEN / Unknown 05/16/2016 5:08 AM CDT 05/16/2016 5:25 AM CDT us Generic Conversion Md [facility] Final R esult [facility] [place] [address], [id number] documented in this encounter Visit Diagnoses Not on filedocumented in this encounter Care Teams Scheduling Administrator Relationship Specialty Start Date End Date Megan Infante MD [address] [place] [phone] PCP - General FAMILY PRACTICE 04/06/16 Piyush Pandey MD [place] Improvement Engineer CARDIOVASCULAR DISEASE 04/06/16 12/28/23 Sharmila Davis, DIE ENGRAVER, WATER MANGLE TENDER-C [address] [facility] [address] [place] [address] NURSE PRACTITIONER 01/04/17 04/03/24 Linda Block MD [address] [facility] [address] [place] [address] [place] Improvement Engineer CLINICAL CARDIAC ELECTROPHYSIOLOGY 02/08/17 04/12/23 documented as of this encounter
--- OUTSIDE RECORDS SUMMARY | 2024-09-03 20:45 | XMS_ITS | Encounter Summary ---
Author Organization [facility] Address [facility] [place] [address] [place] [address] Care Team Providers Care Plastic Mould Maker Name Role Phone Piyush Pandey MD Unavailable Unavailabl Megan Leos MD Primary Care Provider [phone] Shamrila Davis APRN, BIOMASS FACILITATOR-C Unavailable [phone] Linda Block MD Unavailable [phone] Encounter Details Date Type Department Care Team (Late st Contact Info) Description 05/14/2016 Orders [place] [address] , Generic Conversion, Social History [...] (Late Contact Info) Description 09/25/2024 2:00 PM PLANING MACHINE OPERATOR Appointment [facility] [address] [place] [address] Zayra Powell, PROPOSAL MANAGER [address] [place] [address] 10/16/2024 3:30 PM PLANING MACHINE OPERATOR Office Visit [facility] [address] [place] [address] Brit Gonzáles MD [address] [place] [address] documented as of this encounter Procedures Procedure Name Priority Date/Time Associated Diagnosis Comments POCT GLUCOSE - VALLECILLO DOCKED DEVICE Routine 05/14/2016 12:25 AM CDT documented in this encounter Results * (ABNORMAL) POCT glucose (05/14/2016 12:25 AM CDT) GLUCOSE POC 252(H) 70 - 109 05/14/2016 12:29 AM CDT [facility] ORDERS INTERFACE WHOLE BLOOD SPECIMEN / Unknown 05/14/2016 12:25 AM CDT 05/14/2016 12:28 AM CDT us Generic Conversion Md [facility] POCT ORDERABLES - DEVIC E Final Result [facility] ORDERS INTERFACE US documented in this encounter Visit Diagnoses Not on filedocumented in this encounter Care Teams Plastic Mould Maker Relationship Specialty Start Date End Date Megan Infante MD [address] [facility] [place] [phone] PCP - General FAMILY PRACTICE 04/06/16 Piyush Pandey MD [place] Social Services Analyst CARDIOVASCULAR DISEASE 04/06/16 12/28/23 Sharmila Davis APRN, BIOMASS FACILITATOR-C [address] [facility] [address] [place] [address] NURSE PRACTITIONER 01/04/17 04/03/24 Linda Block MD [address] [facility] [address] [place] [phone] [place] Social Services Analyst CLINICAL CARDIAC ELECTROPHYSIOLOGY 02/08/17 04/12/23 documented as of this encounter
--- OUTSIDE RECORDS SUMMARY | 2024-09-03 20:45 | XMS_ITS | Encounter Summary ---
Author Organization [facility] Address [facility] [place] [address] [place] [address] Care Team Providers Care A And P Mechanic Name Role Phone Piyush Pandey MD Unavailable Unavailabl Megan Leos MD Primary Care Provider [phone] Sharmila Davis APRN, HYDRATE CONTROL TENDER-C Unavailable [phone] Linda Block MD Unavailable [phone] Encounter Details Date Type Department Care Team (Late st Contact Info) Description 05/16/2016 Orders Only [place] [address] , Generic Conversion, Social [...] (Late Contact Info) Description 09/25/2024 2:00 PM [address]Y DOCTOR Appointment [facility] [address] [place] [address] Zayra Powell, ECONOMIC SPECIALIST [address] [place] [address] 10/16/2024 3:30 PM EMERGENCY DOCTOR Office Visit [facility] [address] Brit Gonzáles MD [address] [place] [address] documented as of this encounter Procedures Procedure Name Priority Date/Time Associated Diagnosis Comments POCT GLUCOSE - VALLECILLO DOCKED DEVICE Routine 05/16/2016 6:44 PM CDT documented in this encounter Results * POCT glucose (05/16/2016 6:44 PM CDT) GLUCOSE POC 90 70 - 109 05/16/2016 7:11 PM CDT [facility] ORDERS INTERFACE WHOLE BLOOD SPECIMEN / Unknown 05/16/2016 6:44 PM CDT 05/16/2016 7:11 PM CDT us Generic Conversion Md LANDR[facility] POCT ORDERABLES - DEVIC E Final Result [facility] ORDERS INTERFACE US documented in this encounter Visit Diagnoses Not on filedocumented in this encounter Care Teams A And P Mechanic Relationship Specialty Start Date End Date Megan Infante MD [address] [facility] [place] [address] PCP - General FAMILY PRACTICE 04/06/16 Piyush Pandey MD [place] Cloth Bleaching Supervisor CARDIOVASCULAR DISEASE 04/06/16 12/28/23 Sharmila Davis APRN, HYDRATE CONTROL TENDER-C [address] [place] [address] NURSE PRACTITIONER 01/04/17 04/03/24 Linda Block MD [address] [place] [phone] [place] Cloth Bleaching Supervisor CLINICAL CARDIAC ELECTROPHYSIOLOGY 02/08/17 04/12/23 documented as of this encounter
--- OUTSIDE RECORDS SUMMARY | 2024-09-03 20:45 | XMS_ITS | Encounter Summary ---
Author Organization [facility] Address [facility] [place] [address] [place] [address] Care Team Providers Care Production Support Analyst Name Role Phone Piyush Pandey MD Unavailable Unavailabl Megan Leos MD Primary Care Provider [phone] Sharmila Davis APRN, [place]QUET FLOOR LAYER'S HELPER-C Unavailable [phone] Linda Block MD Unavailable [phone] Encounter Details Date Type Department Care Team (Late st Contact Info) Description 05/14/2016 Orders [place] [address] , Generic Conversion, Social History [...] (Late Contact Info) Description 09/25/2024 2:00 PM [address]ER Appointment [facility] [address] [place] [address] Zayra Powell, MAYONNAISE MIXER [address] [place] [address] 10/16/2024 3:30 PM CRAB STEAMER Office Visit [facility] [place] [phone] Brit Gonzáles MD [address] [place] [address] documented as of this encounter Procedures Procedure Name Priority Date/Time Associated Diagnosis Comments PROTHROMBIN TIME, VENOUS TIMED 05/14/2016 3:35 AM CDT documented in this encounter Results * (ABNORMAL) PROTIME/INR, VENOUS (05/14/2016 3:35 AM CDT) PROTIME 17.2(H) 11.6 - 14.3 SEC 05/14/2016 3:58 AM CDT [facility] INR 1.4(H) 0.9 - 1.1 05/14/2016 3:58 AM CDT [facility] 05/14/2016 3:35 AM CDT 05/14/2016 3:43 AM CDT us Generic Conversion Md [facility] Final R esult [facility] [address] [place] [address], [id number] documented in this encounter Visit Diagnoses Not on filedocumented in this encounter Care Teams Production Support Analyst Relationship Specialty Start Date End Date Megan Infante MD [address] [place] [phone] PCP - General FAMILY PRACTICE 04/06/16 Piyush Pandey MD [place] Processor Helper CARDIOVASCULAR DISEASE 04/06/16 12/28/23 Sharmila Davis APRN, PARQUET FLOOR LAYER'S HELPER-C [address] [place] [address] [address] [place] [address] NURSE PRACTITIONER 01/04/17 04/03/24 Linda Block MD [address] [facility] [address] [place] [address] [place] Processor Helper CLINICAL CARDIAC ELECTROPHYSIOLOGY 02/08/17 04/12/23 documented as of this encounter
--- OUTSIDE RECORDS SUMMARY | 2024-09-03 20:45 | XMS_ITS | Encounter Summary ---
Author Organization [facility] Address [address] [place] [address]. [place] [address] [place] [address] Care Team Providers Care Pharmacologist Name Role Phone Piyush Pandey MD, Amy E MD Primary Care Provider [phone] Encounter Details Date Type Department Care Team (Late st Contact Info) Description 05/14/2016 Orders Only [facility] [address] [place] [phone] Eun Landry MD Social History Tobacco [...] st Contact Info) Description 09/25/2024 2:00 PM AERIAL GUNNER Appointment [facility] [address] [place] [address] Zayra Powell, ONLINE CONTENT COORDINATOR [address] [place] [address] 10/16/2024 3:30 PM AERIAL GUNNER Office Visit [facility] [address] [place] [address] Brit Gonzáles MD [address] [place] [address] documented as of this encounter Procedures Procedure Name Priority Date/Time Associated Diagnosis Comments XR CHEST PA+LAT 05/14/2016 5:52 PM CDT documented in this encounter Results * XR CHEST PA+LAT (05/14/2016 5:52 PM CDT) Anatomical Region Laterality Modality Chest Radiographic Stephie ging 05/14/2016 5:52 PM CDT Narrative 05/14/2016 12:00 AM CDT [facility] ?? [place], [place] ?? Department of Radiology ? OBIE SIMS MD: ANURAG GAYTAN MD ?? Acct: [id number] ?? : 1955 Pt Type: ADM IN ?? Sex: M Ord Site: MAIN ? Study Date Accession # Procedure Code Procedure ?? 05/14/16 [id number] CXR2V XR Chest 2 View ? Signed [...] Procedure Note Eun Landry MD - 05/14/2016 [place], [place] Department of Radiology OBIE SIMS Ordering MD: ANURAG GAYTAN MD Acct: [id number] : 1955 Pt Type: ADM IN Sex: M Ord Site: MAIN Study Date Accession # Procedure Code Procedure 05/14/16 [id number] [id number] XR Chest 2 View Signed Examination: [...] on filedocumented in this encounter Care Teams Pharmacologist Relationship Specialty Start Date End Date Megan Infante MD [address] [facility] [place] [phone] PCP - General FAMILY PRACTICE 04/06/16 Piyush Pandey MD [place] Amphibian Crewmember CARDIOVASCULAR DISEASE 04/06/16 12/28/23 documented as of this encounter
--- OUTSIDE RECORDS SUMMARY | 2024-09-03 20:45 | XMS_ITS | Encounter Summary ---
Author Organization [facility] Address [facility] [place] [address] [place] [address] Care Team Providers Care Instructional Leader Name Role Phone Piyush Pandey MD Unavailable Unavailabl Megan Leos MD Primary Care Provider [phone] Sharmila Davis APRN, CUTTER DOWN-C Unavailable [phone] Linda Block MD Unavailable [phone] Encounter Details Date Type Department Care Team (Late st Contact Info) Description 05/15/2016 Orders [place] [address] , Generic Conversion, Social History [...] (Late Contact Info) Description 09/25/2024 2:00 PM REGISTRAR MUSEUM Appointment [facility] [address] [place] [address] Zayra Powell, MANUFACTURING ENGINEER SUPERVISOR [address] [place] [address] 10/16/2024 3:30 PM REGISTRAR MUSEUM Office Visit [facility] [place] [phone] Brit Gonzáles MD [address] [place] [address] documented as of this encounter Procedures Procedure Name Priority Date/Time Associated Diagnosis Comments PROTHROMBIN TIME, VENOUS TIMED 05/15/2016 5:50 AM CDT documented in this encounter Results * (ABNORMAL) PROTIME/INR, VENOUS (05/15/2016 5:50 AM CDT) PROTIME 17.8(H) 11.6 - 14.3 SEC 05/15/2016 6:19 AM CDT [facility] INR 1.4(H) 0.9 - 1.1 05/15/2016 6:19 AM CDT [facility] 05/15/2016 5:50 AM CDT 05/15/2016 6:04 AM CDT us Generic Conversion Md [facility] Final R esult [facility] [address] [place] [address], [id number] documented in this encounter Visit Diagnoses Not on filedocumented in this encounter Care Teams Instructional Leader Relationship Specialty Start Date End Date Megan Infante MD [address] [place] [phone] PCP - General FAMILY PRACTICE 04/06/16 Piyush Pandey MD [place] Administrator Of Home Health CARDIOVASCULAR DISEASE 04/06/16 12/28/23 Sharmila Davis APRN, CUTTER DOWN-C [address] [place] [address] [address] [place] [address] NURSE PRACTITIONER 01/04/17 04/03/24 Linda Block MD [address] [facility] [address] [place] [address] [place] Administrator Of Home Health CLINICAL CARDIAC ELECTROPHYSIOLOGY 02/08/17 04/12/23 documented as of this encounter
--- OUTSIDE RECORDS SUMMARY | 2024-09-03 20:45 | XMS_ITS | Encounter Summary ---
Author Organization [facility] Address [facility] access hospital6 [facility] [place] [place] [address] [place] [address] Care Team Providers Care Powder Loader Name Role Phone Piyush Pandey MD Unavailable Unavailabl Megan Leos MD Primary Care Provider [phone] Sharmila Davis APRN, CSO-C Unavailable [phone] Linda Block MD Unavailable [phone] Encounter Details Date Type Department Care Team (Late st Contact Info) Description 05/14/2016 Orders Only [place] [address] , Generic Conversion, Social History [...] (Late Contact Info) Description 09/25/2024 2:00 PM MOVIE SHOT CAMERA OPERATOR Appointment [facility] [address] [place] [address] Zayra Powell, INTERNAL AUDIT CONSULTANT [address] [place] [address] 10/16/2024 3:30 PM MOVIE SHOT CAMERA OPERATOR Office Visit [facility] [address] [place] [address] Brit Gonzáles MD [address] [place] [address] documented as of this encounter Procedures Procedure Name Priority Date/Time Associated Diagnosis Comments CULTURE RESPIRATORY W/ GRAM STAIN Routine 05/14/2016 11:49 AM CDT documented in this encounter Results * CULTURE RESPIRATORY W/ GRAM STAIN (05/14/2016 11:49 AM CDT) SPEC DESCRIPTION RESPIRATORY 05/14/2016 11:46 AM CDT [facility] SPECIAL REQUESTS NO SPECIAL REQUEST 05/14/2016 11:46 AM CDT [facility] GRAM STAIN RESULT EXCESS ORAL CONTAMINATION. FLOOR NOTIFIED. REPEAT AT PHYSICIAN'S REQUEST. 05/14/2016 4:15 PM CDT [facility] GRAM STAIN RESULT RESULTS, SPECIMEN DATE, TIME WERE READ BACK BY ASHLIE (YUNI JOSÉ) 05/14 1612. ??MA 05/14/2016 4:15 PM CDT [facility] CULTURE RESULT CULTURE NOT PERFORMED. ??SPECIMEN CONTAINS EXCESS EPITHELIAL CELLS WHICH COULD REPRESENT OROPHARYNGEAL CONTAMINATION. ?? RESULTS SHOULD BE INTERPRETED BASED ON CLINICAL CIRCUMSTANCE. PATIENT CARE AREA NOTIFIED. 05/14/2016 4:15 PM CDT [facility] SPECIMEN FROM [facility] OBTAINED BY [facility]IRATION / Unknown 05/14/2016 11:49 AM CDT 05/14/2016 2:52 PM CDT Comment:SPUTUM us Generic Conversion Md [facility] MICROBIOLOGY - GENERAL ORDERABLES Final Result [facility] [place] [address], [id number] documented in this encounter Visit Diagnoses Not on filedocumented in this encounter Care Teams Powder Loader Relationship Specialty Start Date End Date Megan Infante MD [address] [place] [address] PCP - General FAMILY PRACTICE 04/06/16 Piyush Pandey MD [place] Trade Embalmer CARDIOVASCULAR DISEASE 04/06/16 12/28/23 Sharmila Davis, TRAFFIC CONTROL OPERATOR, CSO-C [address] [facility] [address] [place] [phone] NURSE PRACTITIONER 01/04/17 04/03/24 Linda Block MD [address] [facility] [address] [place] [phone] [place] Trade Embalmer CLINICAL CARDIAC ELECTROPHYSIOLOGY 02/08/17 04/12/23 documented as of this encounter
--- OUTSIDE RECORDS SUMMARY | 2024-09-03 20:45 | XMS_ITS | Encounter Summary ---
Author Organization [facility] Address [facility] [place] [address] [place] [address] Care Team Providers Care Polisher Aluminum Name Role Phone Piyush Pandey MD Unavailable Unavailabl Megan Leos MD Primary Care Provider [phone] Sharmila Davis APRN, AUTOMATION CONTROLS EXPERT-C Unavailable [phone] Linda Block MD Unavailable [phone] Encounter Details Date Type Department Care Team (Late st Contact Info) Description 05/17/2016 Orders [place] [address] , Generic Conversion, Social History [...] (Late Contact Info) Description 09/25/2024 2:00 PM PROVIDER NETWORK ANALYST Appointment [facility] [address] [place] [address] Zayra Powell, QA TEST LEAD [address] [place] [address] 10/16/2024 3:30 PM PROVIDER NETWORK ANALYST Office Visit [facility] [address] [place] [address] Brit Gonzáles MD [address] [place] [address] documented as of this encounter Procedures Procedure Name Priority Date/Time Associated Diagnosis Comments CBC W/DIFF AUTOMATED TIMED 05/17/2016 4:16 AM CDT documented in this encounter Results * (ABNORMAL) CBC W/DIFF AUTOMATED (05/17/2016 4:16 AM CDT) WBC 9.2 4.0 - 10.8 x10'3/uL 05/17/2016 4:35 AM CDT [facility] RBC 3.66(L) 4.50 - 6.10 x10'6/uL 05/17/2016 4:35 AM CDT [facility] HGB 10.5(L) 13.0 - 18.0 G/DL 05/17/2016 4:35 AM CDT [facility] HCT 32.4(L) 37.0 - 52.0 % 05/17/2016 4:35 AM CDT [facility] MCV 88.5 78.0 - 100.0 FL 05/17/2016 4:35 AM CDT [facility] MCH 28.7 27.0 - 31.0 PG 05/17/2016 4:35 AM CDT [facility] MCHC 32.4(L) 33.0 - 36.0 G/DL 05/17/2016 4:35 AM CDT [facility] RDW 15.0(H) 11.5 - 14.5 % 05/17/2016 4:35 AM CDT [facility] PLT 212 150 - 350 x10'3/uL 05/17/2016 4:35 AM CDT [facility] MPV 10.4 7.4 - 10.4 FL 05/17/2016 4:35 AM CDT [facility] ABS. NEUTROPHILS TOTAL 6.48 1.60 - 8.30 x10'3/uL 05/17/2016 4:35 AM CDT [facility] ABS. LYMPHOCYTES 1.39 0.80 - 4.70 x10'3/uL 05/17/2016 4:35 AM CDT [facility] ABS. MONOCYTES 0.98 0.00 - 1.50 x10'3/uL 05/17/2016 4:35 AM CDT [facility] ABS. EOSINOPHILS 0.22 0.00 - 0.40 x10'3/uL 05/17/2016 4:35 AM CDT [facility] ABS. BASOPHILS 0.03 0.00 - 0.20 x10'3/uL 05/17/2016 4:35 AM CDT [facility] ABS. IMMATURE GRANULOCYTES 0.07(H) 0.00 - 0.03 x10'3/uL 05/17/2016 4:35 AM CDT [facility] ABS. NUCLEATED RBC'S 0.00 0.0 x10'3/uL 05/17/2016 4:35 AM CDT [facility] PLASMA SPECIMEN / Unknown 05/17/2016 4:16 AM CDT 05/17/2016 4:22 AM CDT us Generic Conversion Md [facility] Final R esult [facility] [place] [address], [id number] documented in this encounter Visit Diagnoses Not on filedocumented in this encounter Care Teams Polisher Aluminum Relationship Specialty Start Date End Date Megan Infante MD [address] [place] [address] PCP - General FAMILY PRACTICE 04/06/16 Piyush Pandey MD [place] Dissolver Operator CARDIOVASCULAR DISEASE 04/06/16 12/28/23 Sharmila Davis, PLANT CONTROLS SPECIALIST, AUTOMATION CONTROLS EXPERT-C [address] [facility] [address] [place] [address] NURSE PRACTITIONER 01/04/17 04/03/24 Linda Block MD [address] [facility] [address] [place] [address] [place] Dissolver Operator CLINICAL CARDIAC ELECTROPHYSIOLOGY 02/08/17 04/12/23 documented as of this encounter
--- OUTSIDE RECORDS SUMMARY | 2024-09-03 20:45 | XMS_ITS | Encounter Summary ---
Author Organization [facility] Address [facility] [place] [address] [place] [address] Care Team Providers Care Turbine Attendant Name Role Phone Piyush Pandey MD Unavailable UnavailMegan Rodriguez MD Primary Care Provider [phone] Sharmila Davis APRN, ASBESTOS SHINGLE INSPECTOR-C Unavailable [phone] Linda Block MD Unavailable [phone] Encounter Details Date Type Department Care Team (Latest Contact Info) Description 05/21/2016 Abstract [facility] Medical [facility] Social [...] Contact Info) Description 09/25/2024 2:00 PM LOAN COORDINATOR Appointment [facility] [address] [place] [address] Zayra Powell, RESIDENT CARE ASSOCIATE [address] [place] [address] 10/16/2024 3:30 PM LOAN COORDINATOR Office Visit [facility] [address] [place] [address] Brit Gonzáles MD 619 [place] [address] documented as of this encounter Visit Diagnoses Not on filedocumented in this encounter Care Teams Turbine Attendant Relationship Specialty Start Date End Date Megan Infante MD [address] [facility] [place] [address] PCP - General FAMILY PRACTICE 04/06/16 Piyush Pandey MD [place] Specialty Food Products Supervisor CARDIOVASCULAR DISEASE 04/06/16 12/28/23 Sharmila Davis APRN, ASBESTOS SHINGLE INSPECTOR-C [address] [facility] [address] [place] [address] NURSE PRACTITIONER 01/04/17 04/03/24 Linda Block MD [address] [facility] [address] [address] [place] Specialty Food Products Supervisor CLINICAL CARDIAC ELECTROPHYSIOLOGY 02/08/17 04/12/23 documented as of this encounter
--- OUTSIDE RECORDS SUMMARY | 2024-09-03 20:45 | XMS_ITS | Encounter Summary ---
Author Organization [facility] Address [facility]6 [place] [address] [place] [address] Care Team Providers Care Rivet Maker Name Role Phone Piyush Pandey MD Unavailable Unavailabl Megan Leos MD Primary Care Provider [phone] Sharmila Davis APRN, RADIOGRAPHER ANGIOGRAM-C Unavailable [phone] Linda Block MD Unavailable [phone] Encounter Details Date Type Department Care Team (Late st Contact Info) Description 05/16/2016 Orders Only [place] [address] , Generic Conversion, Social [...] (Late Contact Info) Description 09/25/2024 2:00 PM ACCOUNTS RECEIVABLE ANALYST Appointment [facility] [address] [place] [address] Zayra Powell, TELEGRAPHIC TYPEWRITER REPAIRER [address] [place] [address] 10/16/2024 3:30 PM ACCOUNTS RECEIVABLE ANALYST Office Visit [facility] [address] [place] [address] Brit Gonzáles MD 619 [place] [address] documented as of this encounter Procedures Procedure Name Priority Date/Time Associated Diagnosis Comments CBC W/DIFF AUTOMATED TIMED 05/16/2016 5:08 AM CDT documented in this encounter Results * (ABNORMAL) CBC W/DIFF AUTOMATED (05/16/2016 5:08 AM CDT) WBC 8.7 4.0 - 10.8 x10'3/uL 05/16/2016 5:32 AM CDT [facility] RBC 3.81(L) 4.50 - 6.10 x10'6/uL 05/16/2016 5:32 AM CDT [facility] HGB 10.7(L) 13.0 - 18.0 G/DL 05/16/2016 5:32 AM CDT [facility] HCT 34.1(L) 37.0 - 52.0 % 05/16/2016 5:32 AM CDT [facility] MCV 89.5 78.0 - 100.0 FL 05/16/2016 5:32 AM CDT [facility] MCH 28.1 27.0 - 31.0 PG 05/16/2016 5:32 AM CDT [facility] MCHC 31.4(L) 33.0 - 36.0 G/DL 05/16/2016 5:32 AM CDT [facility] RDW 15.3(H) 11.5 - 14.5 % 05/16/2016 5:32 AM CDT [facility] PLT 207 150 - 350 x10'3/uL 05/16/2016 5:32 AM CDT [facility] MPV 10.2 7.4 - 10.4 FL 05/16/2016 5:32 AM CDT [facility] ABS. NEUTROPHILS TOTAL 6.31 1.60 - 8.30 x10'3/uL 05/16/2016 5:32 AM CDT [facility] ABS. LYMPHOCYTES 1.11 0.80 - 4.70 x10'3/uL 05/16/2016 5:32 AM CDT [facility] ABS. MONOCYTES 1.01 0.00 - 1.50 x10'3/uL 05/16/2016 5:32 AM CDT [facility] ABS. EOSINOPHILS 0.14 0.00 - 0.40 x10'3/uL 05/16/2016 5:32 AM CDT [facility] ABS. BASOPHILS 0.04 0.00 - 0.20 x10'3/uL 05/16/2016 5:32 AM CDT [facility] ABS. IMMATURE GRANULOCYTES 0.05(H) 0.00 - 0.03 x10'3/uL 05/16/2016 5:32 AM CDT [facility] ABS. NUCLEATED RBC'S 0.00 0.0 x10'3/uL 05/16/2016 5:32 AM CDT [facility] PLASMA SPECIMEN / Unknown 05/16/2016 5:08 AM CDT 05/16/2016 5:25 AM CDT us Generic Conversion Md [facility] Final R esult [facility] [place] [place] [address], [id number] documented in this encounter Visit Diagnoses Not on filedocumented in this encounter Care Teams Rivet Maker Relationship Specialty Start Date End Date Megan Infante MD [address] [facility] [place] [address] PCP - General FAMILY PRACTICE 04/06/16 Piyush Pandey MD [place] Loading Shovel Oiler CARDIOVASCULAR DISEASE 04/06/16 12/28/23 Sharmila Davis, PUBLIC WORKS COMMISSIONER, RADIOGRAPHER ANGIOGRAM-C [address] [facility] [address] [place] [address] NURSE PRACTITIONER 01/04/17 04/03/24 Linda Block MD [address] [facility] [address] [place] [phone] [place] Shovel Oiler CLINICAL CARDIAC ELECTROPHYSIOLOGY 02/08/17 04/12/23 documented as of this encounter
--- OUTSIDE RECORDS SUMMARY | 2024-09-03 20:45 | XMS_ITS | Encounter Summary ---
Author Organization [facility] Address [address] [place] [address]. [place] [address] [place] [address] Care Team Providers Care Blindstitch Lining Feller Name Role Phone Piyush Pandey MD, Amy E MD Primary Care Provider [phone] Encounter Details Date Type Department Care Team (Late Contact Info) Description 05/12/2016 Scan [facility] [address] [place] [phone] Scanned, Documents Social History Tobacco Use [...] Contact Info) Description 09/25/2024 2:00 PM ASSOCIATE PRODUCER Appointment [facility] [address] [place] [address] Zayra Powell, ENERGY RATER [address] [place] [address] 10/16/2024 3:30 PM ASSOCIATE PRODUCER Office Visit [facility] [address] [place] [phone] Brit Gonzáles MD [address] [place] [address] documented as of this encounter Visit Diagnoses Not on filedocumented in this encounter Care Teams Blindstitch Lining Feller Relationship Specialty Start Date End Date Megan Infante MD [address] [facility] [place] [address] PCP - General FAMILY PRACTICE 04/06/16 Piyush Pandey MD [place] Offset Press Operator Apprentice CARDIOVASCULAR DISEASE 04/06/16 12/28/23 documented as of this encounter
--- OUTSIDE RECORDS SUMMARY | 2024-09-03 20:45 | XMS_ITS | Encounter Summary ---
Author Organization [facility] Address [address] [place] [address]. [place] [address] [place] [address] Care Team Providers Care Product Development Consultant Name Role Phone Piyush Pandey MD Unavailable Unavailabl Megan Leos MD Primary Care Provider [phone] Sharmila Davis APRN ASSISTANT INFANT TEACHER-C Unavailable Linda Block MD Unavailable [phone] Encounter Details Date Type Department Care Team (Late st Contact Info) Description 06/10/[address] [facility] [address] [place] [address] Megan Infante MD [address] [place] [address] Social History Tobacco Use Types Packs/Day [...] (Late Contact Info) Description 09/25/2024 2:[address] App[address] [facility] [address] [place] [address] Zayra Powell, ANESTHETIC ASSISTANT [address] [place] [address] 10/16/2024 3:30 PM LOOM OPERATOR [facility] [address] [place] [address] Brit Gonzáles MD [address] [place] [address] documented as of this encounter Visit Diagnoses Diagnosis Obstructive sleep apnea Obstructive sleep apnea (adult) (pediatric) documented in this encounter Care Teams Product Development Consultant Relationship Specialty Start Date End Date Megan Infante MD [address] [place] [address] PCP - General FAMILY PRACTICE 04/06/16 Piyush Pandey MD [place] Conservation Officer CARDIOVASCULAR DISEASE 04/06/16 12/28/23 Sharmila Davis, LEAD SUSTAINABILITY SPECIALIST, ASSISTANT INFANT TEACHER-C [address] [facility] [address] [place] [address] NURSE PRACTITIONER 01/04/17 04/03/24 Linda Block MD 6[address] [facility] 47 [place] [address] [place] Conservation Officer CLINICAL CARDIAC ELECTROPHYSIOLOGY 02/08/17 04/12/23 documented as of this encounter
--- OUTSIDE RECORDS SUMMARY | 2024-09-03 20:45 | XMS_ITS | Encounter Summary ---
Author Organization [facility] Address [facility]6 [facility] [place] [address] [place] [address] Care Team Providers Care Radiology Asst Name Role Phone Piyush Pandey MD Unavailable Unavailabl Megan Leos MD Primary Care Provider [phone] Sharmila Davis APRN, ENTERTAINMENT USHER-C Unavailable [phone] Linda Block MD Unavailable [phone] Encounter Details Date Type Department Care Team (Late st Contact Info) Description 05/16/2016 Orders [place] [address] , Generic Conversion, Social History [...] (Late Contact Info) Description 09/25/2024 2:00 PM BIG MACHINE CONSULTANT Appointment [facility] [address] [place] [address] Zayra Powell, CLIENT PORTFOLIO MANAGER [address] [place] [address] 10/16/2024 3:30 PM BIG MACHINE CONSULTANT Office Visit [facility] [place] [phone] Brit Gonzáles MD 619 [place] [address] documented as of this encounter Procedures Procedure Name Priority Date/Time Associated Diagnosis Comments PROTHROMBIN TIME, VENOUS TIMED 05/16/2016 5:08 AM CDT documented in this encounter Results * (ABNORMAL) PROTIME/INR, VENOUS (05/16/2016 5:08 AM CDT) PROTIME 16.9(H) 11.6 - 14.3 SEC 05/16/2016 5:49 AM CDT [facility] INR 1.3(H) 0.9 - 1.1 05/16/2016 5:49 AM CDT [facility] 05/16/2016 5:08 AM CDT 05/16/2016 5:25 AM CDT us Generic Conversion Md [facility] Final R esult [facility] [address] [place] [address], [id number] documented in this encounter Visit Diagnoses Not on filedocumented in this encounter Care Teams Radiology Asst Relationship Specialty Start Date End Date Megan Infante MD [address] [facility] [place] [address] PCP - General FAMILY PRACTICE 04/06/16 Piyush Pandey MD [place] Correspondence Coordinator CARDIOVASCULAR DISEASE 04/06/16 12/28/23 Sharmila Davis APRN, ENTERTAINMENT USHER-C [address] [place] [address] [address] [place] [address] NURSE PRACTITIONER 01/04/17 04/03/24 Linda Block MD [address] [facility] [address] [place] [address] [place] Correspondence Coordinator CLINICAL CARDIAC ELECTROPHYSIOLOGY 02/08/17 04/12/23 documented as of this encounter
--- OUTSIDE RECORDS SUMMARY | 2024-09-03 20:45 | XMS_ITS | Encounter Summary ---
Author Organization [facility] Address [facility] [place] [address] [place] [address] Care Team Providers Care Commercial Engineer Name Role Phone Piyush Pandey MD Unavailable UnavailMegan Rodriguez MD Primary Care Provider [phone] Sharmila Davis APRN, APPRAISER-C Unavailable Linda Block MD Unavailable [phone] Encounter Details Date Type Department Care Team (Latest Contact Info) Description 05/17/2016 Abstract [facility] Medical [facility] Social History Tobacco Use Types [...] st Contact Info) Description 09/25/2024 2:00 PM TRADING MANAGER Appointment [facility] [address] [place] [address] Zayra Powell, MEAT LUGGER [address] [place] [address] 10/16/2024 3:30 PM TRADING MANAGER Office Visit [facility] [address] [place] [address] Brit Gonzáles MD [address] [place] [address] documented as of this encounter Visit Diagnoses Not on filedocumented in this encounter Care Teams Commercial Engineer Relationship Specialty Start Date End Date Megan Infante MD [address] [facility] [place] [address] PCP - General FAMILY PRACTICE 04/06/16 Piyush Pandey MD [place] Ditch Inspector CARDIOVASCULAR DISEASE 04/06/16 12/28/23 Sharmila Davis APRN, APPRAISER-C [address] [facility] [address] [place] [address] NURSE PRACTITIONER 01/04/17 04/03/24 Linda Block MD 6[address] [facility] [address] [address] [place] Ditch Inspector CLINICAL CARDIAC ELECTROPHYSIOLOGY 02/08/17 04/12/23 documented as of this encounter
--- OUTSIDE RECORDS SUMMARY | 2024-09-03 20:45 | XMS_ITS | Encounter Summary ---
Author Organization [facility] Address [facility]6 [place] [address] [place] [address] Care Team Providers Care Gold Wheel Blocker And Polisher Name Role Phone Piyush Pandey MD Unavailable Unavailabl Megan Leos MD Primary Care Provider [phone] Sharmila Davis APRN, MOLDER FEEDER-C Unavailable [phone] Linda Block MD Unavailable [phone] Encounter Details Date Type Department Care Team (Latest Contact Info) Description 05/14/2016 Abstract [facility] , Eun Tejeda MD Social [...] st Contact Info) Description 09/25/2024 2:00 PM CHICKEN BONER Appointment [facility] [address] [place] [address] Zayra Powell, MACHINE JOINT CUTTER [address] [place] [address] 10/16/2024 3:30 PM CHICKEN BONER Office Visit [facility] [address] [place] [address] Brit Gonzáles MD [address] [place] [address] documented as of this encounter Procedures Procedure Name Priority Date/Time Associated Diagnosis Comments XR CHEST 2V+NIPPLE MARKER Routine 05/14/2016 5:52 PM CDT documented in this encounter Results * XR CHEST 2V+NIPPLE MARKER (05/14/2016 5:52 PM CDT) Anatomical Region Laterality Modality Chest Radiographic Stephie ging 05/14/2016 5:52 PM CDT 05/14/2016 5:52 PM CDT Narrative 05/14/2016 5:56 PM CDT [facility] ?? [place], [place] ?? Department of Radiology ? OBIE SIMS MD: ANURAG GAYTAN MD ?? Acct: [id number] ?? : 1955 Pt Type: ADM IN ?? Sex: M Ord Site: MAIN ? Study Date Accession # Procedure Code Procedure ?? 05/14/16 [id number] CXR2V XR Chest 2 View ? Signed [...] Electronically Signed By: ABRIL MIRZA MD 05/14/16 [id number] ? Dictated On: 05/14/161751 ?? Interpreted By: ABRIL MIRZA MD ?? Transcribed On: 05/14/161751 - INFCE ? CC: ? ANURAG GAYTAN MD Procedure Note , Generic ConversionMD - 06/16/2018 [place], [place] Department of Radiology OBIE SIMS Ordering MD: ANURAG GAYTAN MD Acct: [id number] : 1955 Pt Type: ADM IN Sex: M Ord Site: MAIN Study Date Accession # Procedure Code Procedure 05/14/16 [id number] CXR2V XR Chest 2 View Signed Examination: [...] on filedocumented in this encounter Care Teams Gold Wheel Blocker And Polisher Relationship Specialty Start Date End Date Megna Infante MD [address] [facility] [place] [address] PCP - General FAMILY PRACTICE 04/06/16 Piyush Pandey MD [place] Barrel Ribs Solderer CARDIOVASCULAR DISEASE 04/06/16 12/28/23 Sharmila Davis APRN, MOLDER FEEDER-C [address] [facility] [address] [place] [address] NURSE PRACTITIONER 01/04/17 04/03/24 Linda Block MD [address] [facility] [address] [place] [phone] [place] Barrel Ribs Solderer CLINICAL CARDIAC ELECTROPHYSIOLOGY 02/08/17 04/12/23 documented as of this encounter
--- OUTSIDE RECORDS SUMMARY | 2024-09-03 20:45 | XMS_ITS | Encounter Summary ---
Author Organization [facility] Address [facility]6 [place] [address] [place] [address] Care Team Providers Care Certified Tower Climber Name Role Phone Piyush Pandey MD Unavailable UnavailMegan Rodriguez MD Primary Care Provider [phone] Sharmila Davis APRN, POLE CUTTER-C Unavailable Linda Block MD Unavailable [phone] Encounter Details Date Type Department Care Team (Latest Contact Info) Description 05/13/2016 Abstract [facility] Shashi Philip MD [address] [address] Social History Tobacco Use Types Packs/Day Years [...] Contact Info) Description 09/25/2024 2:00 PM POWER PLANT TECHNICIAN Appointment [facility] [address] [place] [address] Zayra Powell, CORRECTIONAL OFFICER SERGEANT [address] [place] [address] 10/16/2024 3:30 PM POWER PLANT TECHNICIAN Office Visit [facility] [place] [address] Brit Gonzáles MD [address] [place] [address] documented as of this encounter Procedures Procedure Name Priority Date/Time Associated Diagnosis Comments PRV ONLY-RESTING TWELVE LEAD EKG Routine 05/13/2016 6:55 PM CDT documented in this encounter Results * PRV ONLY-RESTING TWELVE LEAD EKG (05/13/2016 6:55 PM CDT) 05/13/2016 6:55 PM CDT 05/13/2016 6:55 PM CDT Narrative [facility] TO EPIC CONVERSION - 05/15/2016 6:57 AM CDT [facility] ? [address] [place], [place] ??[address] ? Test Date: ?2016-05-13 Pat Name: ? OBIE SIMS ?Department: ?? 1 ? Room: ? ICUA Gender: ? Male ? Prospecting Driller Helper: ?? LUIS F PERAZA : ?1955 ? Requested By: SHASHI PHILIP Order Number: [id number] ? Reading : ?? Esteban Samano ? Measurements Intervals ?Creole ? Rate: ? 79 ? P: ? NM: ? 0 ?QRS: ?-10 QRSD: ? 140 ?T: ?145 QT: ? 426 ? QTc: ?489 ? Interpretive Statements ATRIAL FIBRILLATION INTRAVENTRICULAR CONDUCTION DELAY POSSIBLE ANTERIOR MYOCARDIAL INFARCTION, OF INDETERMINATE AGE Procedure Note Eun Tovar MD - 06/17/2018 [facility] [address] [place] [address] Test Date: 2016-05-13 Pat Name: OBIE SIMS Department: 1 Room: ICUA Gender: Male Prospecting Driller Helper: LUIS F PERAZA : 1955 Requested By: SHASHI PHILIP Order Number: [id number] Reading MD: Esteban Samano Measurements Intervals Creole Rate: 79 P: NM: 0 QRS: -10 QRSD: 140 T: 145 QT: 426 QTc: 489 Interpretive Statements ATRIAL FIBRILLATION INTRAVENTRICULAR CONDUCTION DELAY POSSIBLE ANTERIOR MYOCARDIAL INFARCTION, OF INDETERMINATE AGE us Shashi Philip MD ECHO Final Result [facility] TO EPIC CONVERSION documented in this encounter Visit Diagnoses Not on filedocumented in this encounter Care Teams Certified Tower Climber Relationship Specialty Start Date End Date Megan Infante MD [address] [facility] [place] [address] PCP - General FAMILY PRACTICE 04/06/16 Piyush Pandey MD [place] Rate Reviewer CARDIOVASCULAR DISEASE 04/06/16 12/28/23 Sharmila Davis, CHEF SAUCIER, POLE CUTTER-C [address] [facility] [address] [place] [phone] NURSE PRACTITIONER 01/04/17 04/03/24 Linda Block MD [address] [facility] [address] [place] [phone] [place] Rate Reviewer CLINICAL CARDIAC ELECTROPHYSIOLOGY 02/08/17 04/12/23 documented as of this encounter
--- OUTSIDE RECORDS SUMMARY | 2024-09-03 20:45 | XMS_ITS | Encounter Summary ---
Author Organization [facility] Address [facility]ly [facility]6 [facility] [place] [address] [place] [address] Care Team Providers Care Billiard Table Assembler Name Role Phone Piyush Pandey MD Unavailable Unavailabl Megan Leos MD Primary Care Provider [phone] Sharmila Davis APRN, BIOMETRICS ANALYST-C Unavailable [phone] Linda Block MD Unavailable [phone] Encounter Details Date Type Department Care Team (Late st Contact Info) Description 05/16/2016 Orders Only [place] [address] , Generic Conversion, Social History [...] (Late Contact Info) Description 09/25/2024 2:00 PM AVIONICS SYSTEMS INTEGRATION SPECIALIST Appointment [facility] [address] [place] [address] Zayra Powell, LIDDING MACHINE OPERATOR [address] [place] [address] 10/16/2024 3:30 PM AVIONICS SYSTEMS INTEGRATION SPECIALIST Office Visit [facility] [place] [address] Brit Gonzáles MD [address] [place] [address] documented as of this encounter Procedures Procedure Name Priority Date/Time Associated Diagnosis Comments POCT GLUCOSE - VALLECILLO DOCKED DEVICE Routine 05/16/2016 10:19 PM CDT documented in this encounter Results * (ABNORMAL) POCT glucose (05/16/2016 10:19 PM CDT) GLUCOSE POC 189(H) 70 - 109 05/16/2016 11:58 PM CDT [facility] ORDERS INTERFACE WHOLE BLOOD SPECIMEN / Unknown 05/16/2016 10:19 PM CDT 05/16/2016 11:57 PM CDT us Generic Conversion Md LANDRY POCT ORDERABLES - DEVIC E Final Result [facility] ORDERS INTERFACE US documented in this encounter Visit Diagnoses Not on filedocumented in this encounter Care Teams Billiard Table Assembler Relationship Specialty Start Date End Date Megan Infante MD [address] [facility] [place] [address] PCP - General FAMILY PRACTICE 04/06/16 Piyush Pandey MD [place] [employer] Supervisor CARDIOVASCULAR DISEASE 04/06/16 12/28/23 Sharmila Davis APRN, BIOMETRICS ANALYST-C [address] [facility] [address] [place] [address] NURSE PRACTITIONER 01/04/17 04/03/24 Linda Block MD [address] [facility] [address] [place] [address] [place] [employer] Supervisor CLINICAL CARDIAC ELECTROPHYSIOLOGY 02/08/17 04/12/23 documented as of this encounter
--- OUTSIDE RECORDS SUMMARY | 2024-09-03 20:45 | XMS_ITS | Encounter Summary ---
Author Organization [facility] Address [facility] [place] [address] [place] [address] Care Team Providers Care Pearl Maker Name Role Phone Piyush Pandey MD Unavailable Unavailabl Megan Leos MD Primary Care Provider [phone] Sharmila Davis APRN, LINING REPAIRER-C Unavailable [phone] Linda Block MD Unavailable [phone] Encounter Details Date Type Department Care Team (Late st Contact Info) Description 05/15/2016 Orders Only [place] [address] , Generic Conversion, Social History [...] (Late Contact Info) Description 09/25/2024 2:00 PM FRONT END APPLICATION DEVELOPER Appointment [facility] [address] [place] [address] Zayra Powell, CASE MAKER [address] [place] [address] 10/16/2024 3:30 PM FRONT END APPLICATION DEVELOPER Office Visit [facility] [address] [address] Brit Gonzáles MD 6[address] [place] [address] documented as of this encounter Procedures Procedure Name Priority Date/Time Associated Diagnosis Comments MAGNESIUM TIMED 05/15/2016 5:50 AM CDT documented in this encounter Results * MAGNESIUM (05/15/2016 5:50 AM CDT) MAGNESIUM 2.2 1.6 - 2.6 MG/DL 05/15/2016 6:50 AM CDT [facility] SERUM OR PLASMA SPECIMEN / Unknown 05/15/2016 5:50 AM CDT 05/15/2016 6:04 AM CDT us Generic Conversion Md LAN[facility]Y LABORATORY Final R esult [facility] [address] [place] [address], [id number] documented in this encounter Visit Diagnoses Not on filedocumented in this encounter Care Teams Pearl Maker Relationship Specialty Start Date End Date Megan Infante MD [address] [place] [address] PCP - General FAMILY PRACTICE 04/06/16 Piyush Pandey MD [place] Clinical Researcher CARDIOVASCULAR DISEASE 04/06/16 12/28/23 Sharmila Davis APRN, LINING REPAIRER-C [address] [phone] NURSE PRACTITIONER 01/04/17 04/03/24 Linda Block MD [address] [facility] [address] [address] [place] Clinical Researcher CLINICAL CARDIAC ELECTROPHYSIOLOGY 02/08/17 04/12/23 documented as of this encounter
--- OUTSIDE RECORDS SUMMARY | 2024-09-03 20:46 | XMS_ITS | Encounter Summary ---
Author Organization [facility] Address On license of [facility]6 [facility] [address] [place] [address] Care Team Providers Care Manager Data Warehouse Name Role Phone Piyush Pandey MD Unavailable UnavailMegan Rodriguez MD Primary Care Provider [phone] Sharmila Davis APRN, COMPOSITION SIDING WORKER-C Unavailable Linda Block MD Unavailable [phone] Encounter Details Date Type Department Care Team (Late st Contact Info) Description 03/24/2016 Orders Only ROSALES CONVERSION ONE [place], [place] [id number] , Generic Conversion, Social History Tobacco Use [...] st Contact Info) Description 09/25/2024 2:00 PM ANTENNA INSTALLER Appointment [facility] [address] [place] [address] Zayra Powell, VIDEO SOFTWARE ENGINEER [address] [place] [address] 10/16/2024 3:30 PM ANTENNA INSTALLER Office Visit [facility] [address] [place] [phone] Brit Gonzáles MD 619 [place] [address] documented as of this encounter Procedures Procedure Name Priority Date/Time Associated Diagnosis Comments POCT GLUCOSE - VALLECILLO DOCKED DEVICE Routine 03/24/2016 6:36 PM CDT documented in this encounter Results * (ABNORMAL) POCT glucose (03/24/2016 6:36 PM CDT) GLUCOSE POC 123(H) 70 - 109 03/24/2016 7:07 PM CDT [facility] ORDERS INTERFACE WHOLE BLOOD SPECIMEN / Unknown 03/24/2016 6:36 PM CDT 03/24/2016 7:07 PM CDT us Generic Conversion Md LANDRY POCT ORDERABLES - DEVIC E Final Result [facility] ORDERS INTERFACE US documented in this encounter Visit Diagnoses Not on filedocumented in this encounter Care Teams Manager Data Warehouse Relationship Specialty Start Date End Date Megan Infante MD [address] [facility] [place] [address] PCP - General FAMILY PRACTICE 04/06/16 Piyush Pandey MD [place] Associate Field Service Engineer CARDIOVASCULAR DISEASE 04/06/16 12/28/23 Sharmila Davis, OIM CONSULTANT, COMPOSITION SIDING WORKER-C [address] [facility] [address] [place] [address] NURSE PRACTITIONER 01/04/17 04/03/24 Linda Block MD 6[address] [facility] [address] [place] [address] [place] Associate Field Service Engineer CLINICAL CARDIAC ELECTROPHYSIOLOGY 02/08/17 04/12/23 documented as of this encounter
--- OUTSIDE RECORDS SUMMARY | 2024-09-03 20:46 | XMS_ITS | Encounter Summary ---
Author Organization [facility] Address [facility]6 [facility] [place] [address] [place] [address] Care Team Providers Care Motor Block Mechanic Name Role Phone Piyush Pandey MD Unavailable UnavailMegan Rodriguez MD Primary Care Provider [phone] Sharmila Davis APRN, GAS OPERATION MANAGER-C Unavailable Linda Block MD Unavailable [phone] Encounter Details Date Type Department Care Team (Late st Contact Info) Description 10/23/2015 Orders Only ROSALES CONVERSION ONE [place], [place] [id number] , Generic Conversion, Social History Tobacco Use [...] st Contact Info) Description 09/25/2024 2:00 PM CITRIX ENGINEER Appointment [facility] [address] [place] [address] Zayra Powell, FREIGHT ROUTER [address] [place] [address] 10/16/2024 3:30 PM CITRIX ENGINEER Office Visit [facility] [address] [place] [phone] Brit Gonzáles MD 6[address] [place] [address] documented as of this encounter Procedures Procedure Name Priority Date/Time Associated Diagnosis Comments ACT (HMT OR LHMT) Routine 10/23/2015 2:3 5 PM CITRIX ENGINEER documented in this encounter Results * (ABNORMAL) ACT (HMT OR LHMT) (10/23/2015 2:35 PM CITRIX ENGINEER) ACTIVATED CLOTTING TIME (ACT HMT OR LMT) 300(H) 74 - 137 SEC 10/23/2015 2:40 PM CITRIX ENGINEER [facility] ORDERS INTERFACE WHOLE BLOOD SPECIMEN / Unknown 10/23/2015 2:35 PM CITRIX ENGINEER 10/23/2015 2:40 PM CITRIX ENGINEER us Generic Conversion Md LANDRY LAB BLOOD ORDERABLES Fi nal Result Performing Organization Address City/State/[facility] Co de Phone Number [facility] [place] [address], documented in this encounter Visit Diagnoses Not on filedocumented in this encounter Care Teams Motor Block Mechanic Relationship Specialty Start Date End Date Megan Infante MD [address] [facility] [place] [address] PCP - General FAMILY PRACTICE 04/06/16 Piyush Pandey MD [place] Babcock Tester CARDIOVASCULAR DISEASE 04/06/16 12/28/23 Sharmila Davis APRN, GAS OPERATION MANAGER-C [address] [facility] [place] [place] [address] [place] [phone] NURSE PRACTITIONER 01/04/17 04/03/24 Linda Block MD [address] [facility] [address] [place] [phone] [place] Babcock Tester CLINICAL CARDIAC ELECTROPHYSIOLOGY 02/08/17 04/12/23 documented as of this encounter
--- OUTSIDE RECORDS SUMMARY | 2024-09-03 20:46 | XMS_ITS | Encounter Summary ---
Author Organization [facility] Address [facility]6 [facility] [place] [address] [place] [address] Care Team Providers Care Structurer Name Role Phone Piyush Pandey MD Unavailable UnavailMegan Rodriguez MD Primary Care Provider [phone] Sharmila Davis APRN, SLOT FLOOR SUPERVISOR-C Unavailable [phone] Marlee Vega MD Unavailable [phone] Encounter Details Date Type Department Care Team (Latest Contact Info) Description 10/24/2015 Abstract [facility] Social History Tobacco Use [...] st Contact Info) Description 09/25/2024 2:00 PM CIRCULAR SAWYER HELPER Appointment [facility] [address] [place] [address] Zayra Powell, PROPERTY ADJUSTER [address] [place] [address] 10/16/2024 3:30 PM CIRCULAR SAWYER HELPER Office Visit [facility] [address] [place] [address] Brit Gonzáles MD [address] [place], [place] [phone] documented as of this encounter Procedures Procedure Name Priority Date/Time Associated Diagnosis Comments ECG 12-LEAD Routine 10/24/2015 7:42 AM CIRCULAR SAWYER HELPER documented in this encounter Results * ECG 12 lead (10/24/2015 7:42 AM CIRCULAR SAWYER HELPER) 10/24/2015 7:42 AM CIRCULAR SAWYER HELPER Narrative [facility] - 10/24/2015 9:06 PM CIRCULAR SAWYER HELPER ? [facility] ? [address] [place], [place] ??[address] ? Test Date: ?2015-10-24 Pat Name: ? OBIE SIMS ?Department: ?? 1 ? Room: ? CRU0 Gender: ? M ?Typewriter Ribbon Winder: ?? gs fs : ?1955 ? Requested By: MARLEE VEGA Order Number: [id number] ? Reading MD: ?? Jimenez Brady ? Measurements Intervals ?[place] ? Rate: ? 60 ? P: ?31 AK: ? 216 ?QRS: ?-19 QRSD: ? 135 ?T: ?129 QT: ? 467 ? QTc: ?469 ? Interpretive Statements SINUS RHYTHM WITH FIRST DEGREE AV BLOCK LEFT BUNDLE BRANCH BLOCK ULAR SAWYER HELPER Procedure Note Eun Landry MD - 04/18/[address] [address] Test Date: 2015-10-24 Pat Name: OBIE SIMS Department: 1 Room: [facility] Gender: M Typewriter Ribbon Winder: gs fs : 1955 Requested By: MARLEE VEGA Order Number: [id number] Reading MD: Jimenez Brady Measurements Intervals [place] Rate: 60 P: 31 AK: 216 QRS: -19 QRSD: 135 T: 129 QT: 467 QTc: 469 Interpretive Statements SINUS RHYTHM WITH FIRST DEGREE AV BLOCK LEFT BUNDLE BRANCH BLOCK ULAR SAWYER HELPER us Generic Conversion Md LANDRY ECG ORDERABLES Final R esult [facility] documented in this encounter Visit Diagnoses Not on filedocumented in this encounter Care Teams Structurer Relationship Specialty Start Date End Date Megan Infante MD [address] [facility] [place] [address] PCP - General FAMILY PRACTICE 04/06/16 Piyush Pandey MD Flom Casing Soaker CARDIOVASCULAR DISEASE 04/06/16 12/28/23 Sharmila Davis APRN, SLOT FLOOR SUPERVISOR-C [address] [facility] [address] [place] [phone] NURSE PRACTITIONER 01/04/17 04/03/24 Marlee Vega MD [address] [facility] [address] [place] [phone] Flom Casing Soaker CLINICAL CARDIAC ELECTROPHYSIOLOGY 02/08/17 04/12/23 documented as of this encounter
--- OUTSIDE RECORDS SUMMARY | 2024-09-03 20:46 | XMS_ITS | Encounter Summary ---
Author Organization [facility] Address [facility]6 [facility] [address] [place] [address] Care Team Providers Care Platinumsmith Name Role Phone Piyush Pandey MD Unavailable UnavailMegan Rodriguez MD Primary Care Provider [phone] Sharmila Davis APRN, ASSISTANT PROFESSOR OF ART-C Unavailable Linda Block MD Unavailable [phone] Encounter Details Date Type Department Care Team (Late st Contact Info) Description 03/24/2016 Orders Only ROSALES CONVERSION ONE [place], [place] [id number] , Generic Conversion, Social History Tobacco Use [...] Contact Info) Description 09/25/2024 2:00 PM MAINTENANCE WELDER Appointment [facility] [address] [place] [address] Zayra Powell, COLLECTION TELLER [address] [place] [address] 10/16/2024 3:30 PM MAINTENANCE WELDER Office Visit [facility] [address] [place] [phone] Brit Gonzáles MD 619 [place] [address] documented as of this encounter Procedures Procedure Name Priority Date/Time Associated Diagnosis Comments TROPONIN, QUANT TIMED 03/24/2016 7:14 AM CDT documented in this encounter Results * (ABNORMAL) TROPONIN, QUANT (03/24/2016 7:14 AM CDT) TROPONIN I 0.036(H) 0.000 - 0.028 ng/mL. 03/24/2016 8:01 AM CDT [facility] SERUM OR PLASMA SPECIMEN / Unknown 03/24/2016 7:14 AM CDT 03/24/2016 7:15 AM CDT us Generic Conversion Md LANDRY LABORATORY Final R esult [facility] [address] [place] [address], [id number] documented in this encounter Visit Diagnoses Not on filedocumented in this encounter Care Teams Platinumsmith Relationship Specialty Start Date End Date Megan Infante MD [address] [facility] [place] [phone] PCP - General FAMILY PRACTICE 04/06/16 Piyush Pandey MD [place] Manager Paid CARDIOVASCULAR DISEASE 04/06/16 12/28/23 Sharmila Davis APRN, ASSISTANT PROFESSOR OF ART-C [address] [place] [address] [place] [address] NURSE PRACTITIONER 01/04/17 04/03/24 Linda Block MD 6[address] [facility] 47 [place] [address] [place] Manager Paid CLINICAL CARDIAC ELECTROPHYSIOLOGY 02/08/17 04/12/23 documented as of this encounter
--- OUTSIDE RECORDS SUMMARY | 2024-09-03 20:46 | XMS_ITS | Encounter Summary ---
Author Organization [facility] Address [address] [place] [address]. [place] [address] [place] [address] Care Team Providers Care Office Machinery Or Equipment Installer Name Role Phone Piyush Pandey MD [facility] Megan Bridges MD Primary Care Provider [phone] Encounter Details Date Type Department Care Team (Late st Contact Info) Description 03/25/2016 LAMINATION OPERATOR ONLY [facility] [address] [place] [address] Martin Bhatt MD [address] [place] [address] Social History Tobacco Use Types Packs/Day Years Used Date Smoking Tobacco: Former Sex and Gender Information Value Date Recorded Sex Assigned at Not on file Legal Sex Male 10:01 PM CDT Gender Identity Not on file Sexual Orientation Not on file documented as of this encounter Progress Notes * Martin Armstrong MD - 03/24/2016 12:09 PM CDT NAME: OBIE SIMS [facility] ROOM: [address] [place] [address] : 1955 CARDIOSTUDY ADMITTED: 03/23/16 1504 Adm: MARTIN PERRY MD DISCHARGED: Date/Time Dictated: 03/24/16 1209 Transcribed Date/Time: 03/24/16 2302 cc: Martin Perry M.D. Chart Document Direct current cardioversion report DATE OF PROCEDURE 03/24/2016. procedure TRANSESOPHAGEAL ECHOCARDIOGRAM GUIDED DIRECT CURRENT CARDIOVERSION. indication Atrial fibrillation. LEATHER PRODUCTION MACHINE OPERATOR Martin Perry MD DESCRIPTION After informed consent [...] synchronized shock of 150 joules with successful islam of sinus rhythm. He was monitored in the echocardiography laboratory per protocol and will be transferred back to his room once recovery is completed. An EKG has been ordered to document his rhythm. He will continue therapy with subcutaneous enoxaparin until his INR is equal to or greater than 2.0. He will continue antiarrhythmic therapy as directed by Dr. Block. IMPRESSION Successful cardioversion with one synchronized shock of 150 joules. COMPLICATIONS None. Electronically Signed By: Martin Perry M.D. 03/26/2016 10:05 P Martin Perry M.D. documented in this encounter Plan of Treatment Upcoming Encounters Date Type Department Care Team (Late st Contact Info) Description 09/25/2024 2:00 PM MARINE SERVICE MANAGER Appointment [facility] [address] [place] [address] Zayra Powell, BLOCK STACKER [address] [place] [address] 10/16/2024 3:30 PM MARINE SERVICE MANAGER Office Visit [facility] [address] [place] [address] Brit Gonzáles MD [address] [place] [address] [place] [address] documented as of this encounter Visit Diagnoses Not on filedocumented in this encounter Care Teams Office Machinery Or Equipment Installer Relationship Specialty Start Date End Date Megan Infante MD [address] [facility] [place] [address] PCP - General FAMILY PRACTICE 04/06/16 Piyush Pandey MD [place] [facility] [place] CARDIOVASCULAR DISEASE 04/06/16 12/28/23 documented as of this encounter
--- OUTSIDE RECORDS SUMMARY | 2024-09-03 20:46 | XMS_ITS | Encounter Summary ---
Author Organization [facility] Address [facility] [address] [place] [address] Care Team Providers Care Tankroom Worker Name Role Phone Piyush Pandey MD, Amy E MD Primary Care Provider Reason for Visit * Reason Comments Follow Up Breathing Problem Atrial Fibrillation Encounter Details Date Type Department Care Team (Latest Contact Info) Description 04/06/2016 1:00 PM CDT Office Visit [facility] [address] [place] [phone] Sharmila Davis, DANNY, ADMINISTRATIVE SUPPORT MANAGER-C [address] [place] [address] [address] [place] [address] Follow Up; Breathing Problem; Atrial [...] - 04/06/2016 2:35 PM CDT [address] [address] [place] [address] PATIENT FOLLOW-UP VISIT FROM: The Office of Sharmila Davis NP supervised by Piyush Pandey III, M.D. RE: Mendez Lay : 1955 Dear MEGAN INFANTE M.D.: Your patient, Mendez Lay was seen on 04/06/16 at the [facility]. Chief Complaint: Follow Up; Breathing Problem; and [...] tests with DLCO scheduled for 04/15/16 at [facility] in [place]. Dr. Block will be copied on these [...] Block on 10/24/15. He then presented to [facility] with atrial fibrillation with RVR on 03/23/16. He was transferred to [facility] and had a NEMO guided direct current [...] METABOLIC PANEL 5. Coronary artery disease involving lummi coronary artery of lummi heart without angina pectorisELECTROCARDIOGRAM (NON MIDMARK ACQUIRED) 6. Hyperlipidemia, unspecified hyperlipidemia 7. half-way current use of antiarrhythmic drug BASIC METABOLIC PANEL BASIC METABOLIC PANEL PINNACLE Documentation Completed: Atrial Fibrillation Coronary Artery Disease Heart Failure Follow up Plan for BMI: Follow up reason overweight: Recommended patient increases physical activity and Recommended eating a balanced diet. documented in this encounter Plan of Treatment Upcoming Encounters Date Type Department Care Team (Late st Contact Info) Description 09/25/2024 2:[address] App[address]ment [facility] [address] [place] [address] Zayra Powell FNP [address] [place] [address] 10/16/2024 3:30 PM RESIDENT DIRECTOR Office Visit [facility] [address] [place] [address] Brit Gonzáles MD [address]19 [place] [address] documented as of this encounter Procedures Procedure Name Priority Date/Time Associated Diagnosis Comments BNP Routine 04/06/2016 3:10 PM CDT Persistent atrial fibrillation (CMS/HCC HHS/HCC) Shortness of breath BASIC METABOLIC PANEL Routine 04/06/2016 3:10 PM CDT Persistent atrial fibrillation (CMS/HCC HHS/HCC) Shortness of breath half-way current use of antiarrhythmic drug documented in this encounter Results * (ABNORMAL) BASIC METABOLIC PANEL (04/06/2016 3:10 PM CDT) SODIUM S/P/B 138 135 - 147 MMOL/L 04/06/2016 4:04 PM CDT [facility] POTASSIUM S/P/B 4.1 3.5 - 5.0 MMOL/L 04/06/2016 4:04 PM CDT [facility] CHLORIDE S/P/B 101 98 - 107 MMOL/L 04/06/2016 4:04 PM CDT [facility] CO2 24.0 22 - 29 MMOL/L 04/06/2016 4:04 PM CDT [facility] GLUCOSE 122(H) 70 - 109 MG/DL 04/06/2016 4:04 PM CDT [facility] BUN 22 8 - 26 MG/DL 04/06/2016 4:04 PM CDT [facility] CREATININE S/P/B 1.44(H) 0.70 - 1.30 MG/DL 04/06/2016 4:04 PM CDT [facility] CALCIUM S/P/B 9.9 8.8 - 10.0 MG/DL 04/06/2016 4:04 PM CDT [facility] EGFR NON-AFR. AMER. 50(L) >60 ML/MIN/1.7 3 M2 04/06/2016 4:04 PM CDT [facility] EGFR AFR. AMER. 60(L) >60 ML/MIN/1.7 3 M2 04/06/2016 4:04 PM CDT [facility] ANION GAP 13.0 MMOL/L 04/06/2016 4:04 PM CDT [facility] OSMOLALITY (CALC) 280 MOSM/KG 04/06/2016 4:04 PM CDT [facility] PLASMA SPECIMEN / Unknown 04/06/2016 3:10 PM CDT 04/06/2016 3:11 PM CDT ALDAIR Guillen APRNC LABORATORY Final Result Performing Organization Address [facility] Co de Phone Number [facility] [address] [place] [address], [phone] * (ABNORMAL) BNP (04/06/2016 3:10 PM CDT) Pathologist [facility] B TYPE NATRIURETIC PEPTIDE 184(H) 0 - 100 PG/ML 04/06/2016 4:05 PM CDT [facility] WHOLE BLOOD SPECIMEN / Unknown 04/06/2016 3:10 PM CDT 04/06/2016 3:11 PM CDT Sharmila Davis APRN, NP-C LABORATORY Final Result Performing Organization Address [facility] Co de Phone Number [facility] [address] [place] [address], [place] [phone] documented in this encounter Visit Diagnoses Diagnosis Shortness of breath S/P aortic valve replacement with bioprosthetic valve Heart valve replaced by other means LV dysfunction Heart disease, unspecified Persistent atrial fibrillation (CMS/HCC HHS/HCC) Atrial fibrillation Coronary artery disease involving 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
--- OUTSIDE RECORDS SUMMARY | 2024-09-03 20:46 | XMS_ITS | Encounter Summary ---
Author Organization [facility] Address [facility] [address] [place] [address] Care Team Providers Care L Tacker Name Role Phone Piyush Pandey MD Unavailable UnavailMegan Rodriguez MD Primary Care Provider [phone] Sharmila Davis APRN, RANCH HAND SUPERVISOR-C Unavailable [phone] Linda Block MD Unavailable [phone] Encounter Details Date Type Department Care Team (Late st Contact Info) Description 03/26/2016 Orders Only ROSALES CONVERSION ONE [place], [place] [id number] , Generic Conversion, Social History Tobacco Use [...] st Contact Info) Description 09/25/2024 2:00 PM HYDROELECTRIC POWERPLANT SUPERVISOR Appointment [facility] [address] [place] [address] Zayra Powell, LABORER [employer] [address] [place] [address] 10/16/2024 3:30 PM HYDROELECTRIC POWERPLANT SUPERVISOR Office Visit [facility] [address] [place] [address] Brit Gonzáles MD [address] [place] [address] documented as of this encounter Procedures Procedure Name Priority Date/Time Associated Diagnosis Comments POCT GLUCOSE - VALLECILLO DOCKED DEVICE Routine 03/26/2016 10:00 PM CDT documented in this encounter Results * (ABNORMAL) POCT glucose (03/26/2016 10:00 PM CDT) GLUCOSE POC 111(H) 70 - 109 03/26/2016 10:13 PM CDT [facility] ORDERS INTERFACE WHOLE BLOOD SPECIMEN / Unknown 03/26/2016 10:00 PM CDT 03/26/2016 10:13 PM CDT us Generic Conversion Md LANDRY POCT ORDERABLES - DEVIC E Final Result [facility] ORDERS INTERFACE US documented in this encounter Visit Diagnoses Not on filedocumented in this encounter Care Teams L Tacker Relationship Specialty Start Date End Date Megan Infante MD [address] [facility] [place] [address] PCP - General FAMILY PRACTICE 04/06/16 Piyush Pandey MD [place] [employer] Equipment Operator CARDIOVASCULAR DISEASE 04/06/16 12/28/23 Sharmila Davis, CRYPTOGRAPHER, RANCH HAND SUPERVISOR-C [address] [facility] [address] [place] [address] NURSE PRACTITIONER 01/04/17 04/03/24 Linda Block MD [address] [facility] [address] [place] [address] [place] [employer] Equipment Operator CLINICAL CARDIAC ELECTROPHYSIOLOGY 02/08/17 04/12/23 documented as of this encounter
--- OUTSIDE RECORDS SUMMARY | 2024-09-03 20:46 | XMS_ITS | Encounter Summary ---
Author Organization [facility] Address [address] [place] [address]. [place] [address] [place] [address] Care Team Providers Care Reservoir Caretaker Name Role Phone Unavailable Primary Care Provider Unavailabl e Encounter Details Date Type Department Care Team (Late st Contact Info) Description 10/24/2015 Abstract [facility] [address] [place] [address] Eun Tovar MD Social History [...] st Contact Info) Description 09/25/2024 2:00 PM PROTECTION CONSULTANT Appointment [facility] [address] [place] [address] Zayra Powell, PUBLIC INFORMATION SPECIALIST [address] [place] [address] 10/16/2024 3:30 PM PROTECTION CONSULTANT Office Visit [facility] [address] [phone] Brit Gonzáles MD [address] [place] [address] documented as of this encounter Visit Diagnoses Not on filedocumented in this encounter
--- OUTSIDE RECORDS SUMMARY | 2024-09-03 20:46 | XMS_ITS | Encounter Summary ---
Author Organization [facility] Address [facility] [place] [address] [place] [address] Care Team Providers Care Resource Program Teacher Name Role Phone Piyush Pandey MD Unavailable UnavailMegan Rodriguez MD Primary Care Provider [phone] Sharmila Davis APRN, RN FIRST ASSIST-C Unavailable Linda Block MD Unavailable [phone] Encounter Details Date Type Department Care Team (Late st Contact Info) Description 03/23/2016 Orders Only ROSALES CONVERSION [place], [place] [id number] , Generic Conversion, Social History Tobacco Use [...] Contact Info) Description 09/25/2024 2:00 PM GENERAL TECHNICIAN Appointment [facility] [address] [place] [address] Zayra Powell, ELECTRONIC TECH [address] [place] [address] 10/16/2024 3:30 PM GENERAL TECHNICIAN Office Visit [facility] [address] [place] [address] Brit Gonzáles MD [address]19 [place] [address] documented as of this encounter Procedures Procedure Name Priority Date/Time Associated Diagnosis Comments CBC W/DIFF AUTOMATED NOW 03/23/2016 3:41 PM CDT documented in this encounter Results * (ABNORMAL) CBC W/DIFF AUTOMATED (03/23/2016 3:41 PM CDT) WBC 8.9 4.0 - 10.8 x10'3/uL 03/23/2016 3:53 PM CDT [facility] RBC 4.73 4.50 - 6.10 x10'6/uL 03/23/2016 3:53 PM CDT [facility] HGB 13.8 13.0 - 18.0 G/DL 03/23/2016 3:53 PM CDT [facility] HCT 40.5 37.0 - 52.0 % 03/23/2016 3:53 PM CDT [facility] MCV 85.6 78.0 - 100.0 FL 03/23/2016 3:53 PM CDT [facility] MCH 29.2 27.0 - 31.0 PG 03/23/2016 3:53 PM CDT [facility] MCHC 34.1 33.0 - 36.0 G/DL 03/23/2016 3:53 PM CDT [facility] RDW 13.6 11.5 - 14.5 % 03/23/2016 3:53 PM CDT [facility] PLT 205 150 - 350 x10'3/uL 03/23/2016 3:53 PM CDT [facility] MPV 10.8(H) 7.4 - 10.4 FL 03/23/2016 3:53 PM CDT [facility] ABS. NEUTROPHILS TOTAL 6.73 1.60 - 8.30 x10'3/uL 03/23/2016 3:53 PM CDT [facility] ABS. LYMPHOCYTES 1.18 0.80 - 4.70 x10'3/uL 03/23/2016 3:53 PM CDT [facility] ABS. MONOCYTES 0.80 0.00 - 1.50 x10'3/uL 03/23/2016 3:53 PM CDT [facility] ABS. EOSINOPHILS 0.12 0.00 - 0.40 x10'3/uL 03/23/2016 3:53 PM CDT [facility] ABS. BASOPHILS 0.02 0.00 - 0.20 x10'3/uL 03/23/2016 3:53 PM CDT [facility] ABS. IMMATURE GRANULOCYTES 0.03 0.00 - 0.03 x10'3/uL 03/23/2016 3:53 PM CDT [facility] ABS. NUCLEATED RBC'S 0.00 0.0 x10'3/uL 03/23/2016 3:53 PM CDT [facility] PLASMA SPECIMEN / Unknown 03/23/2016 3:41 PM CDT 03/23/2016 3:50 PM CDT us Generic Conversion Md [facility] LABORATORY Final R esult [facility] [address] [place] [address], [phone] documented in this encounter Visit Diagnoses Not on filedocumented in this encounter Care Teams Resource Program Teacher Relationship Specialty Start Date End Date Megan Infante MD [address] [facility] [place] [address] PCP - General FAMILY PRACTICE 04/06/16 Piyush Pandey MD [place] [employer] CARDIOVASCULAR DISEASE 04/06/16 12/28/23 Sharmila Davis, CRIMINAL JUSTICE SOCIAL WORKER, RN FIRST ASSIST-C [address] [facility] [address] [place] [address] NURSE PRACTITIONER 01/04/17 04/03/24 Linda Block MD [address] [facility] [address] [place] [address] [place] [employer] CLINICAL CARDIAC ELECTROPHYSIOLOGY 02/08/17 04/12/23 documented as of this encounter
--- OUTSIDE RECORDS SUMMARY | 2024-09-03 20:46 | XMS_ITS | Encounter Summary ---
Author Organization [facility] Address Critical access hospital6 [facility] [place] [address] [place] [address] Care Team Providers Care Splicing Machine Operator Name Role Phone Piyush Pandey MD Unavailable UnavailMegan Rodriguez MD Primary Care Provider [phone] Sharmila Davis APRN, RESEARCH LABORATORY SPECIALIST-C Unavailable Linda Block MD Unavailable [phone] Encounter Details Date Type Department Care Team (Late st Contact Info) Description 03/26/2016 Orders Only ROSALES CONVERSION ONE [place], [place] [id number] , Generic Conversion, Social History Tobacco Use [...] Contact Info) Description 09/25/2024 2:00 PM INSTRUCTOR TRAINER CANINE SERVICE Appointment [facility] [address] [place] [address] Zayra Powell, STRIPPER APPRENTICE [address] [place] [address] 10/16/2024 3:30 PM INSTRUCTOR TRAINER CANINE SERVICE Office Visit [facility] [address] [place] [address] Brit Gonzáles MD [address] [place] [address] documented as of this encounter Procedures Procedure Name Priority Date/Time Associated Diagnosis Comments BASIC METABOLIC PANEL Routine 03/26/2016 3:59 AM CDT documented in this encounter Results * (ABNORMAL) BASIC METABOLIC PANEL (03/26/2016 3:59 AM CDT) SODIUM S/P/B 136 135 - 147 MMOL/L 03/26/2016 4:42 AM CDT [facility] POTASSIUM S/P/B 4.2 3.5 - 5.0 MMOL/L 03/26/2016 4:42 AM CDT [facility] CHLORIDE S/P/B 101 98 - 107 MMOL/L 03/26/2016 4:42 AM CDT [facility] CO2 25.5 22 - 29 MMOL/L 03/26/2016 4:42 AM CDT [facility] GLUCOSE 144(H) 70 - 109 MG/DL 03/26/2016 4:42 AM CDT [facility] BUN 20 8 - 26 MG/DL 03/26/2016 4:42 AM CDT [facility] CREATININE S/P/B 1.51(H) 0.70 - 1.30 MG/DL 03/26/2016 4:42 AM CDT [facility] CALCIUM S/P/B 9.8 8.8 - 10.0 MG/DL 03/26/2016 4:42 AM CDT [facility] EGFR NON-AFR. AMER. 47(L) >60 ML/MIN/1.7 3 M2 03/26/2016 4:42 AM CDT [facility] EGFR AFR. AMER. 57(L) >60 ML/MIN/1.7 3 M2 03/26/2016 4:42 AM CDT [facility] ANION GAP 9.5 MMOL/L 03/26/2016 4:42 AM CDT [facility] OSMOLALITY (CALC) 277 MOSM/KG 03/26/2016 4:42 AM CDT [facility] PLASMA SPECIMEN / Unknown 03/26/2016 3:59 AM CDT 03/26/2016 4:00 AM CDT us Generic Conversion Md [facility] LABORAT[facility] Final R esult [facility] [place] [address], [phone] documented in this encounter Visit Diagnoses Not on filedocumented in this encounter Care Teams Splicing Machine Operator Relationship Specialty Start Date End Date Megan Infante MD [address] [facility] [place] [address] PCP - General FAMILY PRACTICE 04/06/16 Piyush Pandey MD [place] [employer] Intern CARDIOVASCULAR DISEASE 04/06/16 12/28/23 Sharmila Davis, CREDIT CARD ANALYST, RESEARCH LABORATORY SPECIALIST-C [address] [facility] [address] [place] [address] NURSE PRACTITIONER 01/04/17 04/03/24 Linda Block MD [address] [facility] [address] [place] [address] [place] [employer] Intern CLINICAL CARDIAC ELECTROPHYSIOLOGY 02/08/17 04/12/23 documented as of this encounter
--- OUTSIDE RECORDS SUMMARY | 2024-09-03 20:46 | XMS_ITS | Encounter Summary ---
Author Organization [facility] Address [facility]6 [facility] [place] [address] [place] [address] Care Team Providers Care Power Sewing Machine Operator Name Role Phone Piyush Pandey MD Unavailable UnavailMegan Rodriguez MD Primary Care Provider [phone] Sharmila Davis APRN, SOFTWARE BUILD ENGINEER-C Unavailable Linda Block MD Unavailable [phone] Encounter Details Date Type Department Care Team (Late st Contact Info) Description 03/26/2016 Orders Only ROSALES CONVERSION ONE [place], [place] [id number] , Generic Conversion, Social History Tobacco Use [...] st Contact Info) Description 09/25/2024 2:00 PM PERMASTONE INSTALLER Appointment [facility] [address] [place] [address] Zayra Powell, PUBLIC EMPLOYMENT MEDIATOR [address] [place] [address] 10/16/2024 3:30 PM PERMASTONE INSTALLER Office Visit [facility] [address] [place] [phone] Brit Gonzáles MD 619 [place] [address] documented as of this encounter Procedures Procedure Name Priority Date/Time Associated Diagnosis Comments MAGNESIUM Routine 03/26/2016 3:59 AM CDT documented in this encounter Results * MAGNESIUM (03/26/2016 3:59 AM CDT) MAGNESIUM 2.1 1.6 - 2.6 MG/DL 03/26/2016 4:42 AM CDT [facility] SERUM OR PLASMA SPECIMEN / Unknown 03/26/2016 3:59 AM CDT 03/26/2016 4:00 AM CDT us Generic Conversion Md [facility] LABORAT[facility] Final R esult [facility] [address] [place] [address], [phone] documented in this encounter Visit Diagnoses Not on filedocumented in this encounter Care Teams Power Sewing Machine Operator Relationship Specialty Start Date End Date Megan Infante MD [address] [facility] [place] [address] PCP - General FAMILY PRACTICE 04/06/16 Piyush Pandey MD [place] [employer] Manager CARDIOVASCULAR DISEASE 04/06/16 12/28/23 Sharmila Davis APRN, SOFTWARE BUILD ENGINEER-C [address] [facility] [address] [place] [address] NURSE PRACTITIONER 01/04/17 04/03/24 Linda Block MD [address] [facility] [address] [place] [address] [place] [employer] Manager CLINICAL CARDIAC ELECTROPHYSIOLOGY 02/08/17 04/12/23 documented as of this encounter
--- OUTSIDE RECORDS SUMMARY | 2024-09-03 20:46 | XMS_ITS | Encounter Summary ---
Author Organization [facility] Address [facility] [place] [address] [place] [address] Care Team Providers Care Equipment Engineering Technician Name Role Phone Piyush Pandey MD, Amy E MD Primary Care Provider [phone] Reason for Visit * Reason Onset Date Comments Appointment Request 04/06/2016 Encounter Details Date Type Department Care Team (Late st Contact Info) Description 04/06/2016 Telephone [facility] [address] [place] [address] Sharmila Davis APRN, NP-C [address] [facility] [address] [place] [address] Appointment Request Social History Tobacco [...] lab results were stable, continue current meds. [facility] called and they can advance his PFT appointment to 04/13/16 at 1:30pm. Please let them know if jakob make this appointment. documented in this encounter Plan of Treatment Upcoming Encounters Date Type Department Care Team (Late st Contact Info) Description 09/25/2024 2:00 PM ART HANDLER Appointment [facility] [address] [facility] [place] [address] Zayra Powell, [facility] [address] [facility] [place] [address] 10/16/2024 3:30 PM ART HANDLER Office Visit [facility] [address] [facility] [address] Brit Gonzáles MD [address]19 [place] [address] documented as of this encounter Visit Diagnoses Not on filedocumented in this encounter Care Teams Equipment Engineering Technician Relationship Specialty Start Date End Date Megan Infante MD [address] [facility] [place] [address] PCP - General FAMILY PRACTICE 04/06/16 Piyush Pandey MD [place] [employer] Floor Operator CARDIOVASCULAR DISEASE 04/06/16 12/28/23 documented as of this encounter
--- OUTSIDE RECORDS SUMMARY | 2024-09-03 20:46 | XMS_ITS | Encounter Summary ---
Author Organization [facility] Address [facility]6 [facility] [place] [address] [place] [address] Care Team Providers Care Bedspread Seamer Name Role Phone Piyush Pandey MD Unavailable UnavailMegan Rodriguez MD Primary Care Provider [phone] Sharmila Davis APRN, MANAGER PARKING-C Unavailable [phone] Linda Block MD Unavailable [phone] Encounter Details Date Type Department Care Team (Late st Contact Info) Description 10/23/2015 Orders Only ROSALES CONVERSION ONE [place], [place] [id number] , Generic Conversion, Social History Tobacco Use [...] Contact Info) Description 09/25/2024 2:00 PM SATELLITE INSTALLATION TECHNICIAN Appointment [facility] [address] [place] [address] Zayra Powell, GUEST SERVICE HOST [address] [place] [address] 10/16/2024 3:30 PM SATELLITE INSTALLATION TECHNICIAN Office Visit [facility] [address] [place] [phone] Brit Gonzáles MD [address] [place] [address] documented as of this encounter Procedures Procedure Name Priority Date/Time Associated Diagnosis Comments ACT (HMT OR LHMT) Routine 10/23/2015 1:4 0 PM SATELLITE INSTALLATION TECHNICIAN documented in this encounter Results * (ABNORMAL) ACT (HMT OR LHMT) (10/23/2015 1:40 PM SATELLITE INSTALLATION TECHNICIAN) ACTIVATED CLOTTING TIME (ACT HMT OR LMT) 282(H) 74 - 137 SEC 10/23/2015 1:45 PM SATELLITE INSTALLATION TECHNICIAN [facility] ORDERS INTERFACE WHOLE BLOOD SPECIMEN / Unknown 10/23/2015 1:40 PM SATELLITE INSTALLATION TECHNICIAN 10/23/2015 1:45 PM SATELLITE INSTALLATION TECHNICIAN us Generic Conversion Md LANDRY LAB BLOOD ORDERABLES Fi nal Result Performing Organization Address City/State/[facility] Co de Phone Number [facility] [place] [address], documented in this encounter Visit Diagnoses Not on filedocumented in this encounter Care Teams Bedspread Seamer Relationship Specialty Start Date End Date Megan Infante MD [address] [facility] [place] [address] PCP - General FAMILY PRACTICE 04/06/16 Piyush Pandey MD [place] Glass Toughening Operator CARDIOVASCULAR DISEASE 04/06/16 12/28/23 Sharmila Davis APRN, MANAGER PARKING-C [address] [facility] [address] [place] [address] NURSE PRACTITIONER 01/04/17 04/03/24 Linda Block MD [address] [facility] [address] [place] [address] [place] Glass Toughening Operator CLINICAL CARDIAC ELECTROPHYSIOLOGY 02/08/17 04/12/23 documented as of this encounter
--- OUTSIDE RECORDS SUMMARY | 2024-09-03 20:46 | XMS_ITS | Encounter Summary ---
Author Organization [facility] Address [facility]6 [facility] [place] [address] [place] [address] Care Team Providers Care Software Tester Name Role Phone Piyush Pandey MD Unavailable UnavailMegan Rodriguez MD Primary Care Provider [phone] Sharmila Davis APRN, CONTROL ENGINEER-C Unavailable Linda Block MD Unavailable [phone] Encounter Details Date Type Department Care Team (Late st Contact Info) Description 03/26/2016 Orders Only ROSALES CONVERSION [place], [place] [id number] , Generic Conversion, Social History Tobacco Use [...] Contact Info) Description 09/25/2024 2:00 PM MANAGEMENT DEPARTMENT CHAIR Appointment [facility] [address] [place] [address] Zayra Powell, METAL PRODUCTS VIEWER [address] [place] [address] 10/16/2024 3:30 PM MANAGEMENT DEPARTMENT CHAIR Office Visit [facility] [address] [place] [address] Brit Gonzáles MD [address]19 [place] [address] documented as of this encounter Procedures Procedure Name Priority Date/Time Associated Diagnosis Comments POCT GLUCOSE - VALLECILLO DOCKED DEVICE Routine 03/26/2016 6:51 PM CDT documented in this encounter Results * POCT glucose (03/26/2016 6:51 PM CDT) GLUCOSE POC 98 70 - 109 03/26/2016 6:[address] [facility] ORDERS INTERFACE WHOLE BLOOD SPECIMEN / Unknown 03/26/2016 6:51 PM CDT 03/26/2016 6:53 PM CDT us Generic Conversion Md LANDRY POCT ORDERABLES - DEVIC E Final Result [facility] ORDERS INTERFACE US documented in this encounter Visit Diagnoses Not on filedocumented in this encounter Care Teams Software Tester Relationship Specialty Start Date End Date Megan Infante MD [address] [facility] [place] [address] PCP - General FAMILY PRACTICE 04/06/16 Piyush Pandey MD [place] [employer] Developer CARDIOVASCULAR DISEASE 04/06/16 12/28/23 Sharmila Davis, DIVISION HEAD, CONTROL ENGINEER-C [address] [facility] [address] [place] [address] NURSE PRACTITIONER 01/04/17 04/03/24 Linda Block MD [address] [facility] [address] [place] [address] [place] [employer] Developer CLINICAL CARDIAC ELECTROPHYSIOLOGY 02/08/17 04/12/23 documented as of this encounter
--- OUTSIDE RECORDS SUMMARY | 2024-09-03 20:46 | XMS_ITS | Encounter Summary ---
Author Organization [facility] Address [facility] [place] [address] [place] [address] Care Team Providers Care Baker Paint Name Role Phone Piyush Pandey MD Unavailable UnavailMegan Rodriguez MD Primary Care Provider [phone] Sharmila Davis APRN, RELIGION PROFESSOR-C Unavailable Linda Block MD Unavailable [phone] Encounter Details Date Type Department Care Team (Late st Contact Info) Description 03/24/2016 Orders Only ROSALES CONVERSION ONE [place], [place] [id number] , Generic Conversion, Social History Tobacco Use [...] st Contact Info) Description 09/25/2024 2:00 PM FARE COLLECTOR Appointment [facility] [address] [place] [address] Zayra Powell, [employer] TRAWL NET [address] [place] [address] 10/16/2024 3:30 PM FARE COLLECTOR Office Visit [facility] [address] [place] [phone] Brit Gonzáles MD [address]19 [place] [address] documented as of this encounter Procedures Procedure Name Priority Date/Time Associated Diagnosis Comments URINALYSIS Nurse Collected Priority 03/24/2016 7:55 PM CDT documented in this encounter Results * (ABNORMAL) URINALYSIS (03/24/2016 7:55 PM CDT) COLOR (U) LIGHT YELLOW 03/24/2016 9:13 PM CDT [facility] TRANSPARENCY CLEAR 03/24/2016 9:13 PM CDT [facility] SPECIFIC GRAVITY (U) 1.014 1.002 - 1.035 03/24/2016 9:13 PM CDT [facility] U PH 6.0 5 - 8 03/24/2016 9:13 PM CDT [facility] PROTEIN (U) 100(A) NEGATIVE 03/24/2016 9:13 PM CDT [facility] URINE GLUCOSE NEGATIVE NEGATIVE MG/DL 03/24/2016 9:13 PM CDT [facility] KETONES MG/DL (U) NEGATIVE NEGATIVE 03/24/2016 9:13 PM CDT [facility] BILIRUBIN (U) NEGATIVE NEGATIVE 03/24/2016 9:13 PM CDT [facility] BLOOD (U) NEGATIVE NEGATIVE 03/24/2016 9:13 PM CDT [facility] NITRITES NEGATIVE NEGATIVE 03/24/2016 9:13 PM CDT [facility] UROBILINOGEN NORMAL 0 - 1 EU/DL 03/24/2016 9:13 PM CDT [facility] LEUKOCYTES (U) NEGATIVE NEGATIVE 03/24/2016 9:13 PM CDT [facility] RBC/HPF NONE /HPF 03/24/2016 9:14 PM CDT [facility] WBC/HPF 1 /HPF 03/24/2016 9:14 PM CDT [facility] BACTERIA (U) NONE /HPF 03/24/2016 9:14 PM CDT [facility] SQUAMOUS EPITHELIALS <1 03/24/2016 9:14 PM CDT [facility] URINE SPECIMEN / Unknown 03/24/2016 7:55 PM CDT 03/24/2016 8:39 PM CDT us Generic Conversion Md LANDRY URINE ORDERABLES Final Result [facility] [address] [place] [address], [phone] documented in this encounter Visit Diagnoses Not on filedocumented in this encounter Care Teams Baker Paint Relationship Specialty Start Date End Date Megan Infante MD [address] [place] [phone] PCP - General FAMILY PRACTICE 04/06/16 Piyush Pandey MD [place] [employer] Engineer CARDIOVASCULAR DISEASE 04/06/16 12/28/23 Sharmila Davis APRN, RELIGION PROFESSOR-C [address] [facility] [address] [place] [address] NURSE PRACTITIONER 01/04/17 04/03/24 Linda Block MD [address] [facility] [address] [place] [address] [place] [employer] Engineer CLINICAL CARDIAC ELECTROPHYSIOLOGY 02/08/17 04/12/23 documented as of this encounter
--- OUTSIDE RECORDS SUMMARY | 2024-09-03 20:46 | XMS_ITS | Encounter Summary ---
Author Organization [facility] Address Formerly [facility] [facility] [place] [address] [place] [address] Care Team Providers Care Director Of Medicare Name Role Phone Piyush Pandey MD Unavailable UnavailMegan Rodriguez MD Primary Care Provider [phone] Sharmila Davis APRN, RIB TRIM SEPARATOR-C Unavailable Linda Block MD Unavailable [phone] Encounter Details Date Type Department Care Team (Latest Contact Info) Description 03/25/2016 Abstract [facility] Social History Tobacco Use [...] st Contact Info) Description 09/25/2024 2:00 PM YARD CALLER Appointment [facility] [address] [place] [address] Zayra Powell, ADJUNCT PSYCHOLOGY FACULTY MEMBER [address] [place] [address] 10/16/2024 3:30 PM YARD CALLER Office Visit [facility] [address] [place] [address] Brit Gonzáles MD 619 [place], [place] [phone] documented as of this encounter Visit Diagnoses Not on filedocumented in this encounter Care Teams Director Of Medicare Relationship Specialty Start Date End Date Megan Infante MD [address] [facility] [place] [address] PCP - General FAMILY PRACTICE 04/06/16 Piyush Pandey MD [place] Application Development Project Manager CARDIOVASCULAR DISEASE 04/06/16 12/28/23 Sharmila Davis, INTEGRATION MANAGER, RIB TRIM SEPARATOR-C [address] [facility] [address] [place] [address] NURSE PRACTITIONER 01/04/17 04/03/24 Linda Block MD 6[address] [facility] [address] [place] [address] [place] Application Development Project Manager CLINICAL CARDIAC ELECTROPHYSIOLOGY 02/08/17 04/12/23 documented as of this encounter
--- OUTSIDE RECORDS SUMMARY | 2024-09-03 20:46 | XMS_ITS | Encounter Summary ---
Author Organization [facility] Address [address] [place] [address]. [place] [address] [place] [address] Care Team Providers Care Vat Overhauler Name Role Phone Unavailable Primary Care Provider Unavailabl e Encounter Details Date Type Department Care Team (Late st Contact Info) Description 01/29/2016 Scan [facility] 6[address] [place] [address] Eun Tovar MD Social History [...] st Contact Info) Description 09/25/2024 2:00 PM DISC INSPECTOR Appointment [facility] [address] [place] [address] Zayra Powell, ASSOCIATE DIRECTOR OF SALES [address] [place] [address] 10/16/2024 3:30 PM DISC INSPECTOR Office Visit [facility] [address] [phone] Brit Gonzáles MD 619 [place] [address] documented as of this encounter Visit Diagnoses Not on filedocumented in this encounter
--- OUTSIDE RECORDS SUMMARY | 2024-09-03 20:46 | XMS_ITS | Encounter Summary ---
Author Organization [facility] Address [facility] [place] [address] [place] [address] Care Team Providers Care Celebrity Chef Entrepreneur Media Personality Name Role Phone Piyush Pandey MD Unavailable UnavailMegan Rodriguez MD Primary Care Provider [phone] Sharmila Davis APRN, REED OR WIND INSTRUMENT REPAIRER-C Unavailable [phone] Linda Block MD Unavailable [phone] Encounter Details Date Type Department Care Team (Late st Contact Info) Description 03/24/2016 Orders Only ROSALES CONVERSION [place], [place] [id number] , Generic Conversion, Social History Tobacco Use [...] Contact Info) Description 09/25/2024 2:00 PM INSURANCE BUSINESS ANALYST Appointment [facility] [address] [place] [address] Zayra Powell, IT INTEGRATION ARCHITECT [address] [place] [address] 10/16/2024 3:30 PM INSURANCE BUSINESS ANALYST Office Visit [facility] [address] [place] [address] Brit Gonzáles MD 619 [place] [address] documented as of this encounter Procedures Procedure Name Priority Date/Time Associated Diagnosis Comments PROTHROMBIN TIME, VENOUS TIMED 03/24/2016 7:14 AM CDT documented in this encounter Results * (ABNORMAL) PROTIME/INR, VENOUS (03/24/2016 7:14 AM CDT) PROTIME 20.0(H) 11.6 - 14.3 SEC 03/24/2016 7:30 AM CDT [facility] INR 1.7(H) 0.9 - 1.1 03/24/2016 7:30 AM CDT [facility] 03/24/2016 7:14 AM CDT 03/24/2016 7:15 AM CDT us Generic Conversion Md [facility] Final R esult [facility] [address] [place] [address], [id number] documented in this encounter Visit Diagnoses Not on filedocumented in this encounter Care Teams Celebrity Chef Entrepreneur Media Personality Relationship Specialty Start Date End Date Megan Infante MD [address] [facility] [place] [address] PCP - General FAMILY PRACTICE 04/06/16 Piyush Pandey MD [place] Customer Service Teller CARDIOVASCULAR DISEASE 04/06/16 12/28/23 Sharmila Davis APRN, REED OR WIND INSTRUMENT REPAIRER-C [address] [address] NURSE PRACTITIONER 01/04/17 04/03/24 Linda Block MD [address] [place] [address] [place] Customer Service Teller CLINICAL CARDIAC ELECTROPHYSIOLOGY 02/08/17 04/12/23 documented as of this encounter
--- OUTSIDE RECORDS SUMMARY | 2024-09-03 20:46 | XMS_ITS | Encounter Summary ---
Author Organization [facility] Address [facility]6 [place] [address] [place] [address] Care Team Providers Care Court Security Officer Name Role Phone Piyush Pandey MD Unavailable UnavailMegan Rodriguez MD Primary Care Provider [phone] Sharmila Davis APRN, AUTOMATIC COIN MACHINE MECHANIC-C Unavailable Linda Block MD Unavailable [phone] Encounter Details Date Type Department Care Team (Late st Contact Info) Description 03/26/2016 Orders Only ROSALES CONVERSION [place], [place] [id number] , Generic Conversion, Social History Tobacco Use [...] Contact Info) Description 09/25/2024 2:00 PM SUPERVISOR OPEN HEARTH STOCKYARD Appointment [facility] [address] [place] [address] Zayra Powell, WRAPPER LAYER AND EXAMINER SOFT WORK [address] [place] [address] 10/16/2024 3:30 PM SUPERVISOR OPEN HEARTH STOCKYARD Office Visit [facility] [address] [place] [address] Brit Gonzáles MD 619 [place] [address] documented as of this encounter Procedures Procedure Name Priority Date/Time Associated Diagnosis Comments POCT GLUCOSE - VALLECILLO DOCKED DEVICE Routine 03/26/2016 1:18 PM CDT documented in this encounter Results * POCT glucose (03/26/2016 1:18 PM CDT) GLUCOSE POC 104 70 - 109 03/26/2016 1:21 PM CDT [facility] ORDERS INTERFACE WHOLE BLOOD SPECIMEN / Unknown 03/26/2016 1:18 PM CDT 03/26/2016 1:21 PM CDT us Generic Conversion Md [facility] POCT ORDERABLES - DEVIC E Final Result [facility] ORDERS INTERFACE [place] documented in this encounter Visit Diagnoses Not on filedocumented in this encounter Care Teams Court Security Officer Relationship Specialty Start Date End Date Megan Infante MD [address] [facility] [place] [address] PCP - General FAMILY PRACTICE 04/06/16 Piyush Pandey MD [place] Poker Dealer CARDIOVASCULAR DISEASE 04/06/16 12/28/23 Sharmila Davis, LEATHER SEASONER, AUTOMATIC COIN MACHINE MECHANIC-C 6[address] [facility] [address] [place] [address] NURSE PRACTITIONER 01/04/17 04/03/24 Linda Block MD [address] [facility] [address] [place] [address] [place] Poker Dealer CLINICAL CARDIAC ELECTROPHYSIOLOGY 02/08/17 04/12/23 documented as of this encounter
--- OUTSIDE RECORDS SUMMARY | 2024-09-03 20:46 | XMS_ITS | Encounter Summary ---
Author Organization [facility] Address [address] [place] [address]. [place] [address] [place] [address] Care Team Providers Care Unclaimed Property Officer Name Role Phone Piyush Pandey MD [facility] MD Primary Care Provider [phone] Encounter Details Date Type Department Care Team (Late st Contact Info) Description 03/24/2016 Orders Only [facility] 619 [place] [address] Linda Block MD [address] [facility] [address] [place] [address] Social History Tobacco Use Types [...] st Contact Info) Description 09/25/2024 2:00 PM MOHEL Appointment [facility] [address] [place] [address] Zayra Powell, AMERICAN STUDIES PROFESSOR [address] [place] [address] 10/16/2024 3:30 PM MOHEL Office Visit [facility] [address] [place] [phone] Brit Gonzáles MD [address] [place] [address] documented as of this encounter Procedures Procedure Name Priority Date/Time Associated Diagnosis Comments USE TRANSESOPHAGEAL ECHO 03/24/2016 10:41 AM CDT documented in this encounter Results * USE TRANSESOPHAGEAL ECHO (03/24/2016 10:41 AM CDT) Anatomical Region Laterality Modality Cardiac Echocardiogram 03/24/2016 10:4 1 AM CDT Narrative 03/24/2016 12:00 AM CDT ?Transesophageal Echocardiography Report Pat.Name: ??OBIE SIMS ?Pat.ID: ?[id number] ? St.Date: ?? 03/24/2016 ?Refer.: ??[facility]ENT[facility] ? Exam Time: 10:41:00 AM ? Study Type:TRANSESOPHAGEAL ECHO W/CONT Height: ?66.93in ? Weight: ?217.95lb ? BSA: ? 2.1 m2 ?Age: ??1955,60Y ? Sex: ? MALE ?BP: ?182/79 ? HR: ?118 bpm ? Sonogrphr: Keenan Molina RD, JOCELIN Pat. Stat.:Inpatient ? Room: ?468 ? CPT - 4: ?? 11054 [id number] ? Reason for Study:Atrial fibrillation / flutter [...] Transesophageal Echocardiography Report Pat.Name: OBIE SIMS Pat.ID: [id number] St.Date: 03/24/2016 Refer.: SIER[facility] GENTILE Exam Time: 10:41:00 AM Study Type:TRANSESOPHAGEAL ECHO W/CONT Height: 66.93in Weight: 217.95lb BSA: 2.1 m2 Age: 11 1955,60Y Sex: MALE BP: 182/79 HR: 118 bpm Sonogrphr: Keenan Molina RDCS, JOCELIN [place]. Stat.:Inpatient Room: [facility] CPT - 4: 83886 [id number] [id number] Reason for Study:Atrial fibrillation / flutter Procedures:Intraveneous [...] on filedocumented in this encounter Care Teams Unclaimed Property Officer Relationship Specialty Start Date End Date Megan Infante MD [address] [place] [address] PCP - General FAMILY PRACTICE 04/06/16 Piyush Pandey MD [place] Wireless Watcher CARDIOVASCULAR DISEASE 04/06/16 12/28/23 documented as of this encounter
--- OUTSIDE RECORDS SUMMARY | 2024-09-03 20:46 | XMS_ITS | Encounter Summary ---
Author Organization [facility] Address [facility]6 [facility] [place] [address] [place] [address] Care Team Providers Care Silk Screen Frame Assembler Name Role Phone Piyush Pandey MD Unavailable Unavailabl e Megan Infante MD Primary Care Provider [phone] Sharmila Davis APRN, MIDDLEWARE ENGINEER-C Unavailable [phone] Linda Block MD Unavailable [phone] Encounter Details Date Type Department Care Team (Late st Contact Info) Description 04/06/[address] [facility] [address] [place], [place] [address] Sharmila Davis APRN, MIDDLEWARE ENGINEER-C [address] [facility] [address] [place] [address] Social History Tobacco Use Types Packs/Day Years [...] Contact Info) Description 09/25/2024 2:00 PM METER TECHNICIAN Appointment [facility] [address] [place] [address] Zayra Powell, HAND ALTERATIONS SEAMSTRESS [address] [place] [address] 10/16/2024 3:30 PM METER TECHNICIAN Office Visit [facility] [address] [place] [address] Brit Gonzáles MD [address] [place] [address] documented as of this encounter Visit Diagnoses Diagnosis Encounter for therapeutic drug level monitoring Encounter for therapeutic drug monitoring documented in this encounter Care Teams Silk Screen Frame Assembler Relationship Specialty Start Date End Date Megan Infante MD [address] [place] [address] PCP - General FAMILY PRACTICE 04/06/16 Piyush Pandey MD [place] Gas Plant Operator CARDIOVASCULAR DISEASE 04/06/16 12/28/23 Sharmila Davis APRN, MIDDLEWARE ENGINEER-C [address] [facility] [address] [place] [address] NURSE PRACTITIONER 01/04/17 04/03/24 Linda Block MD [address] [facility] [address] [place] [address] [place] Gas Plant Operator CLINICAL CARDIAC ELECTROPHYSIOLOGY 02/08/17 04/12/23 documented as of this encounter
--- OUTSIDE RECORDS SUMMARY | 2024-09-03 20:46 | XMS_ITS | Encounter Summary ---
Author Organization [facility] Address [address] [place] [address]. [place] [address] [place] [address] Care Team Providers Care Resort Desk Clerk Name Role Phone Unavailable Primary Care Provider Unavailabl e Reason for Visit * Reason Onset Date Comments Lab Results 03/23/2016 INR results from PCP Encounter Details Date Type Department Care Team (Late Contact Info) Description 03/23/2016 Telephone [facility] [place] [address] [place] [address] Linda Block MD [address] [facility] [address] [place] [address] Lab Results (INR results from [...] st Contact Info) Description 09/25/2024 2:00 PM ORNAMENTAL METAL WORKER Appointment [facility] [address] [place] [address] Zayra Powell, [facility] [address] [place] [address] 10/16/2024 3:30 PM ORNAMENTAL METAL WORKER Office Visit [facility] [facility] [address] [place] [address] Brit Gonzáles MD 619 [place] [address] documented as of this encounter Visit Diagnoses Not on filedocumented in this encounter
--- OUTSIDE RECORDS SUMMARY | 2024-09-03 20:46 | XMS_ITS | Encounter Summary ---
Author Organization [facility] Address [facility] [place] [address] [place] [address] Care Team Providers Care Biological Engineer Name Role Phone Piyush Pandey MD Unavailable UnavailMegan Rodriguez MD Primary Care Provider [phone] Sharmila Davis APRN, TAX MANAGER CPA-C Unavailable Linda Block MD Unavailable [phone] Encounter Details Date Type Department Care Team (Late st Contact Info) Description 10/23/2015 Orders Only [facility]ALES CONVERSION [place], [place] [id number] , Generic Conversion, Social History Tobacco Use [...] Contact Info) Description 09/25/2024 2:00 PM OIL BURNER SERVICER AND INSTALLER Appointment [facility] [address] [place] [address] Zayra Powell, TEA BLENDER [address] [place] [address] 10/16/2024 3:30 PM OIL BURNER SERVICER AND INSTALLER Office Visit [facility] [address] [place] [address] Brit Gonzáles MD [address] [place] [address] documented as of this encounter Procedures Procedure Name Priority Date/Time Associated Diagnosis Comments POCT GLUCOSE - VALLECILLO DOCKED DEVICE Routine 10/23/2015 11:53 PM OIL BURNER SERVICER AND INSTALLER documented in this encounter Results * (ABNORMAL) POCT glucose (10/23/2015 11:53 PM OIL BURNER SERVICER AND INSTALLER) GLUCOSE POC 147(H) 70 - 109 10/24/2015 12:38 AM OIL BURNER SERVICER AND INSTALLER [facility] ORDERS INTERFACE WHOLE BLOOD SPECIMEN / Unknown 10/23/2015 11:53 PM OIL BURNER SERVICER AND INSTALLER 10/24/2015 12:38 AM OIL BURNER SERVICER AND INSTALLER us Generic Conversion Md LANDRY POCT ORDERABLES - DEVIC E Final Result [facility] [place] [address], documented in this encounter Visit Diagnoses Not on filedocumented in this encounter Care Teams Biological Engineer Relationship Specialty Start Date End Date Megan Infante MD [address] [facility] [place] [address] PCP - General FAMILY PRACTICE 04/06/16 Piyush Pandey MD [place] Multimedia Authoring Specialist CARDIOVASCULAR DISEASE 04/06/16 12/28/23 Sharmila Davis, SHOVEL MECHANIC, TAX MANAGER CPA-C [address] [facility] [address] [place] [address] NURSE PRACTITIONER 01/04/17 04/03/24 Linda Block MD [address] [facility] [address] [place] [address] [place] Multimedia Authoring Specialist CLINICAL CARDIAC ELECTROPHYSIOLOGY 02/08/17 04/12/23 documented as of this encounter
--- OUTSIDE RECORDS SUMMARY | 2024-09-03 20:46 | XMS_ITS | Encounter Summary ---
Author Organization [facility] Address [facility]6 [facility] [place] [address] [place] [address] Care Team Providers Care Stitching Machine Operator Name Role Phone Piyush Pandey MD, Amy E MD Primary Care Provider Reason for Visit * Reason Onset Date Comments Advice 04/07/2016 Encounter Details Date Type Department Care Team ([facility] st Contact Info) Description 04/07/2016 Telephone [facility] 619 [place] [address] Sharmila Davis APRN, NP-C [address] [facility] [address] [place] [address] Advice Social History Tobacco Use [...] evaluation. He had told them that his music pastor told him he didn't need the oxygen. [...] doesn't need the sleep study. Please call [phone]. If Cris is not available, any nurse can help. Clinic note of 04/06/16 faxed. documented in this encounter Plan of Treatment Upcoming Encounters Date Type Department Care Team (Late st Contact Info) Description 09/25/2024 2:00 PM RUBBER ROLLER GRINDER OPERATOR Appointment [facility] [address] [place] [address] Zayra Powell COFFEE SHOP MANAGER [address] [place] [address] 10/16/2024 3:30 PM RUBBER ROLLER GRINDER OPERATOR Office Visit [facility] [facility] [address] [place] [address] Brit Gonzáles MD [address] [place] [address] documented as of this encounter Visit Diagnoses Not on filedocumented in this encounter Care Teams Stitching Machine Operator Relationship Specialty Start Date End Date Megan Infante MD [address] [place] [phone] PCP - General FAMILY PRACTICE 04/06/16 Piyush Pandey MD [place] Pin Drafting Machine Tender CARDIOVASCULAR DISEASE 04/06/16 12/28/23 documented as of this encounter
--- OUTSIDE RECORDS SUMMARY | 2024-09-03 20:46 | XMS_ITS | Encounter Summary ---
Author Organization [facility] Address [address] [place] [address]. [place] [address] [place] [address] Care Team Providers Care Ply Splicer Name Role Phone Unavailable Primary Care Provider Unavailabl e Encounter Details Date Type Department Care Team (Late st Contact Info) Description 04/05/2016 Abstract [facility] 619 [place] [address] Sharmila Davis, DANNY, TRANSIT WORKER-C 619 [facility] [address] [place] [address] Social History Tobacco Use Types Packs/Day Years [...] st Contact Info) Description 09/25/2024 2:00 PM TAR POT WORKER Appointment [facility] [address] [place] [address] Zayra Powell, TRANSITIONAL KINDERGARTEN TEACHER [address] [place] [address] 10/16/2024 3:30 PM TAR POT WORKER Office Visit [facility] [address] [place] [phone] Brit Gonzáles MD [address] [place], [place] [address] documented as of this encounter Visit Diagnoses Not on filedocumented in this encounter
--- OUTSIDE RECORDS SUMMARY | 2024-09-03 20:46 | XMS_ITS | Encounter Summary ---
Author Organization [facility] Address Critical access hospital6 [facility] [place] [address] [place] [address] Care Team Providers Care Watch Train Assembler Name Role Phone Piyush Pandey MD Unavailable UnavailMegan Rodriguez MD Primary Care Provider [phone] Sharmila Davis APRN, COMMERCIAL LITIGATION ATTORNEY-C Unavailable Linda Block MD Unavailable [phone] Encounter Details Date Type Department Care Team (Late st Contact Info) Description 10/23/2015 Orders Only ROSALES CONVERSION ONE [place], [place] [id number] , Generic Conversion, Social History Tobacco Use [...] Contact Info) Description 09/25/2024 2:00 PM MANAGER MBA Appointment [facility] [address] [place] [address] Zayra Powell, REED PRESS FEEDER [address] [place] [address] 10/16/2024 3:30 PM MANAGER MBA Office Visit [facility] [address] [place] [phone] Brit Gonzáles MD 619 [place] [address] documented as of this encounter Procedures Procedure Name Priority Date/Time Associated Diagnosis Comments ACT (HMT OR LHMT) Routine 10/23/2015 3:4 4 PM MANAGER MBA documented in this encounter Results * ACT (HMT OR LHMT) (10/23/2015 3:44 PM MANAGER MBA) ACTIVATED CLOTTING TIME (ACT HMT OR LMT) 134 74 - 137 SEC 10/23/2015 3:46 PM MANAGER MBA [facility] LAB ORDERS INTERFACE WHOLE BLOOD SPECIMEN / Unknown 10/23/2015 3:44 PM MANAGER MBA 10/23/2015 3:46 PM MANAGER MBA us Generic Conversion Md [facility] LAB BLOOD ORDERABLES Fi nal Result [facility] [place] [address], documented in this encounter Visit Diagnoses Not on filedocumented in this encounter Care Teams Watch Train Assembler Relationship Specialty [place] [address] [place] [address] [place] [address] PCP - General FAMILY PRACTICE 04/06/16 Piyush Pandey MD [place] Lithographers Printer CARDIOVASCULAR DISEASE 04/06/16 12/28/23 Sharmila Davis APRN, COMMERCIAL LITIGATION ATTORNEY-C 619 [facility] [address] [place] [address] NURSE PRACTITIONER 01/04/17 04/03/24 Linda Block MD [address] [facility] [address] [place] [address] [place] [employer]ographers Printer CLINICAL CARDIAC ELECTROPHYSIOLOGY 02/08/17 04/12/23 documented as of this encounter
--- OUTSIDE RECORDS SUMMARY | 2024-09-03 20:46 | XMS_ITS | Encounter Summary ---
Author Organization [facility] Address Critical access hospital6 [facility] [place] [address] [place] [address] Care Team Providers Care Mechanic General Operational Test Name Role Phone Piyush Pandey MD Unavailable UnavailMegan Rodriguez MD Primary Care Provider [phone] Sharmila Davis APRN, COIN WRAPPING MACHINE OPERATOR-C Unavailable [phone] Linda Block MD Unavailable [phone] Encounter Details Date Type Department Care Team (Late st Contact Info) Description 03/23/2016 Orders Only ROSALES CONVERSION [place], [place] [id number] , Generic Conversion, Social History Tobacco Use [...] st Contact Info) Description 09/25/2024 2:00 PM FLEET DISPATCH MANAGER Appointment [facility] [address] [place] [address] Zayra Powell, RESAW CARRIAGE OPERATOR [address] [place] [address] 10/16/2024 3:30 PM FLEET DISPATCH MANAGER Office Visit [facility] [address] [place] [address] Brit Gonzáles MD 619 [place] [address] documented as of this encounter Procedures Procedure Name Priority Date/Time Associated Diagnosis Comments POCT GLUCOSE - VALLECILLO DOCKED DEVICE Routine 03/23/2016 10:29 PM CDT documented in this encounter Results * (ABNORMAL) POCT glucose (03/23/2016 10:29 PM CDT) GLUCOSE POC 118(H) 70 - 109 03/23/2016 10:[address] [facility] ORDERS INTERFACE Comment:RN Notified WHOLE BLOOD SPECIMEN / Unknown 03/23/2016 10:29 PM CDT 03/23/2016 10:34 PM CDT us Generic Conversion Md LANDRY POCT ORDERABLES - DEVIC E Final Result [facility] ORDERS INTERFACE US documented in this encounter Visit Diagnoses Not on filedocumented in this encounter Care Teams Mechanic General Operational Test Relationship Specialty Start Date End Date Megan Infante MD [address] [place] [address] PCP - General FAMILY PRACTICE 04/06/16 Piyush Pandey MD [place] Cooky Packer CARDIOVASCULAR DISEASE 04/06/16 12/28/23 Sharmila Davis APRN, COIN WRAPPING MACHINE OPERATOR-C [address] [facility] [address] [place] [address] NURSE PRACTITIONER 01/04/17 04/03/24 Linda Block MD [address] [facility] [address] [place] [address] [place] Cooky Packer CLINICAL CARDIAC ELECTROPHYSIOLOGY 02/08/17 04/12/23 documented as of this encounter
--- OUTSIDE RECORDS SUMMARY | 2024-09-03 20:46 | XMS_ITS | Encounter Summary ---
Author Organization [facility] Address [address] [place] [address]. [place] [address] [place] [address] Care Team Providers Care Political Anthropologist Name Role Phone Unavailable Primary Care Provider Unavailabl e Encounter Details Date Type Department Care Team (Late st Contact Info) Description 01/27/2016 Scan [facility] [address] [place] [address] Eun Tovar MD Social History [...] Contact Info) Description 09/25/2024 2:00 PM SOLAR CONSULTANT Appointment [facility] [address] [place] [address] Zayra Powell, MACHINE QUILT STUFFER [address] [place] [address] 10/16/2024 3:30 PM SOLAR CONSULTANT Office Visit [facility] [address] [address] Brit Gonzáles MD 6[address] [place] [address] documented as of this encounter Visit Diagnoses Not on filedocumented in this encounter
--- OUTSIDE RECORDS SUMMARY | 2024-09-03 20:46 | XMS_ITS | Encounter Summary ---
Author Organization [facility] Address [facility] [place] [address] [place] [address] Care Team Providers Care Payroll Bookkeeper Name Role Phone Piyush Pandey MD Unavailable UnavailMegan Rodriguez MD Primary Care Provider [phone] Sharmila Davis APRN, MACHINE FORMER-C Unavailable Linda Block MD Unavailable [phone] Encounter Details Date Type Department Care Team (Late st Contact Info) Description 03/25/2016 Orders Only ROSALES CONVERSION [place], [place] [id number] , Generic Conversion, Social History Tobacco Use [...] Info) Description 09/25/2024 2:00 PM COMBINATION MACHINE TENDER Appointment [facility] [address] [place] [address] Zayra Powell, CONTOUR GRINDER [address] [place] [address] 10/16/2024 3:30 PM COMBINATION MACHINE TENDER Office Visit [facility] [address] [place] [address] Brit Gonzáles MD 619 [place] [address] documented as of this encounter Procedures Procedure Name Priority Date/Time Associated Diagnosis Comments POCT GLUCOSE - VALLECILLO DOCKED DEVICE Routine 03/25/2016 9:50 PM CDT documented in this encounter Results * POCT glucose (03/25/2016 9:50 PM CDT) GLUCOSE POC 105 70 - 109 03/25/2016 9:57 PM CDT [facility] ORDERS INTERFACE WHOLE BLOOD SPECIMEN / Unknown 03/25/2016 9:50 PM CDT 03/25/2016 9:57 PM CDT us Generic Conversion Md LANDRY POCT ORDERABLES - DEVIC E Final Result [facility] ORDERS INTERFACE US documented in this encounter Visit Diagnoses Not on filedocumented in this encounter Care Teams Payroll Bookkeeper Relationship Specialty Start Date End Date Megan Infante MD [address] [facility] [place] [address] PCP - General FAMILY PRACTICE 04/06/16 Piyush Pandey MD [place] Senior Windows Systems Administrator CARDIOVASCULAR DISEASE 04/06/16 12/28/23 Sharmila Davis, TRACK SUBWAY REPAIR SUPERVISOR, MACHINE FORMER-C [address] [facility] [address] [place] [address] NURSE PRACTITIONER 01/04/17 04/03/24 Linda Block MD [address] [facility] [address] [place] [address] [place] Senior Windows Systems Administrator CLINICAL CARDIAC ELECTROPHYSIOLOGY 02/08/17 04/12/23 documented as of this encounter
--- OUTSIDE RECORDS SUMMARY | 2024-09-03 20:46 | XMS_ITS | Encounter Summary ---
Author Organization [facility] Address [facility] [place] [address] [place] [address] Care Team Providers Care Credit And Collections Representative Name Role Phone Piyush Pandey MD Unavailable UnavailMegan Rodriguez MD Primary Care Provider [phone] Sharmila Davis APRN, MINE CAR REPAIRER-C Unavailable Linda Block MD Unavailable [phone] Encounter Details Date Type Department Care Team (Late st Contact Info) Description 03/23/2016 Orders Only ROSALES CONVERSION [place], [place] [id number] , Generic Conversion, Social History Tobacco Use [...] st Contact Info) Description 09/25/2024 2:00 PM CATHOLIC PRIEST Appointment [facility] [address] [place] [address] Zayra Powell, BPO SPECIALIST [address] [place] [address] 10/16/2024 3:30 PM CATHOLIC PRIEST Office Visit [facility] [address] [place] [address] Brit Gonzáles MD 619 [place] [address] documented as of this encounter Procedures Procedure Name Priority Date/Time Associated Diagnosis Comments COMPREHENSIVE METABOLIC PANEL NOW 03/23/2016 3:41 PM CDT documented in this encounter Results * (ABNORMAL) COMPREHENSIVE METABOLIC PANEL (03/23/2016 3:41 PM CDT) SODIUM S/P/B 139 135 - 147 MMOL/L 03/23/2016 4:19 PM CDT [facility] POTASSIUM S/P/B 4.1 3.5 - 5.0 MMOL/L 03/23/2016 4:19 PM CDT [facility] CHLORIDE S/P/B 103 98 - 107 MMOL/L 03/23/2016 4:19 PM CDT [facility] CO2 25.4 22 - 29 MMOL/L 03/23/2016 4:19 PM CDT [facility] GLUCOSE 237(H) 70 - 109 MG/DL 03/23/2016 4:19 PM CDT [facility] BUN 19 8 - 26 MG/DL 03/23/2016 4:19 PM CDT [facility] CREATININE S/P/B 1.24 0.70 - 1.30 MG/DL 03/23/2016 4:19 PM CDT [facility] CALCIUM S/P/B 9.5 8.8 - 10.0 MG/DL 03/23/2016 4:19 PM CDT [facility] BILIRUBIN TOTAL S/P/B 0.9 0.2 - 1.2 MG/DL 03/23/2016 4:19 PM CDT [facility] ALKALINE PHOSPHATASE S/P/B 70 45 - 115 U/L 03/23/2016 4:19 PM CDT [facility] AST 18 5 - 35 U/L 03/23/2016 4:19 PM CDT [facility] ALT 21 0 - 55 U/L 03/23/2016 4:19 PM CDT [facility] TOTAL PROTEIN S/P/B 7.1 6.0 - 8.3 G/DL 03/23/2016 4:19 PM CDT [facility] ALBUMIN S/P/B 4.0 3.4 - 4.9 G/DL 03/23/2016 4:19 PM CDT [facility] ANION GAP 10.6 MMOL/L 03/23/2016 4:19 PM CDT [facility] OSMOLALITY (CALC) 287 MOSM/KG 03/23/2016 4:19 PM CDT [facility] EGFR NON-AFR. AMER. 59(L) >60 ML/MIN/1.7 3 M2 03/23/2016 4:19 PM CDT [facility] EGFR AFR. AMER. 72 >60 ML/MIN/1.7 3 M2 03/23/2016 4:19 PM CDT [facility] PLASMA SPECIMEN / Unknown 03/23/2016 3:41 PM CDT 03/23/2016 3:50 PM CDT us Generic Conversion Md [facility] LABORATORY Final R esult [facility] [address] [place] [address], [id number] documented in this encounter Visit Diagnoses Not on filedocumented in this encounter Care Teams Credit And Collections Representative Relationship Specialty Start Date End Date Megan Infante MD [address] [facility] [place] [address] PCP - General FAMILY PRACTICE 04/06/16 Piyush Pandey MD [place] Rigging Up Man CARDIOVASCULAR DISEASE 04/06/16 12/28/23 Sharmila Davis, TELETYPEWRITER OPERATOR, MINE CAR REPAIRER-C [address] [facility] [address] [place] [address] NURSE PRACTITIONER 01/04/17 04/03/24 Linda Block MD [address] [facility] [address] [place] [address] [place] Rigging Up Man CLINICAL CARDIAC ELECTROPHYSIOLOGY 02/08/17 04/12/23 documented as of this encounter
--- OUTSIDE RECORDS SUMMARY | 2024-09-03 20:46 | XMS_ITS | Encounter Summary ---
Author Organization [facility] Address [facility] [place] [address] [place] [address] Care Team Providers Care Lockstitch Binder Name Role Phone Piyush Pandey MD Unavailable UnavailMegan Rodriguez MD Primary Care Provider [phone] Sharmila Davis APRN, TRAVEL GUIDE-C Unavailable [phone] Linda Block MD Unavailable [phone] Encounter Details Date Type Department Care Team (Late st Contact Info) Description 03/23/2016 Orders Only ROSALES CONVERSION [place], [place] [id number] , Generic Conversion, Social History Tobacco Use [...] st Contact Info) Description 09/25/2024 2:00 PM MOLD PARTER Appointment [facility] [address] [place] [address] Zayra Powell, SAT INSTRUCTOR [address] [place] [address] 10/16/2024 3:30 PM MOLD PARTER Office Visit [facility] [address] [place] [address] Brit Gonzáles MD 619 [place] [address] documented as of this encounter Procedures Procedure Name Priority Date/Time Associated Diagnosis Comments TROPONIN, QUANT TIMED 03/23/2016 11:28 PM CDT documented in this encounter Results * (ABNORMAL) TROPONIN, QUANT (03/23/2016 11:28 PM CDT) TROPONIN I 0.037(H) 0.000 - 0.028 ng/mL. 03/24/2016 12:13 AM CDT [facility] SERUM OR PLASMA SPECIMEN / Unknown 03/23/2016 11:28 PM CDT 03/23/2016 11:47 PM CDT us Generic Conversion Md [facility] LABORAT[facility] Final R esult [facility] [address] [place] [address], [id number] documented in this encounter Visit Diagnoses Not on filedocumented in this encounter Care Teams Lockstitch Binder Relationship Specialty Start Date End Date Megan Infante MD [address] [facility] [place] [address] PCP - General FAMILY PRACTICE 04/06/16 Piyush Pandey MD [place] Supervisory Clerk CARDIOVASCULAR DISEASE 04/06/16 12/28/23 Sharmila Davis APRN, TRAVEL GUIDE-C [address] [place] [address] NURSE PRACTITIONER 01/04/17 04/03/24 Linda Block MD 619 [facility] [address] [place] [address] [place] Supervisory Clerk CLINICAL CARDIAC ELECTROPHYSIOLOGY 02/08/17 04/12/23 documented as of this encounter
--- OUTSIDE RECORDS SUMMARY | 2024-09-03 20:46 | XMS_ITS | Encounter Summary ---
Author Organization [facility] Address Count includes the [facility] [place] [address] [place] [address] Care Team Providers Care Putty Glazer Name Role Phone Piyush Pandey MD Unavailable UnavailMegan Rodriguez MD Primary Care Provider [phone] Sharmila Davis APRN, HOG CUTTER-C Unavailable Linda Block MD Unavailable [phone] Encounter Details Date Type Department Care Team (Late st Contact Info) Description 03/23/2016 Orders Only ROSALES CONVERSION [place], [place] [id number] , Generic Conversion, Social History Tobacco Use [...] Contact Info) Description 09/25/2024 2:00 PM WAREHOUSE ORDER PICKER Appointment [facility] [address] [place] [address] Zayra Powell, HOT DIE PICKER [address] [place] [address] 10/16/2024 3:30 PM WAREHOUSE ORDER PICKER Office Visit [facility] [address] [place] [address] Brit Gonzáles MD 619 [place] [address] documented as of this encounter Procedures Procedure Name Priority Date/Time Associated Diagnosis Comments POCT GLUCOSE - VALLECILLO DOCKED DEVICE Routine 03/23/2016 5:10 PM CDT documented in this encounter Results * (ABNORMAL) POCT glucose (03/23/2016 5:10 PM CDT) GLUCOSE POC 169(H) 70 - 109 03/23/2016 5:12 PM CDT [facility] ORDERS INTERFACE WHOLE BLOOD SPECIMEN / Unknown 03/23/2016 5:10 PM CDT 03/23/2016 5:12 PM CDT us Generic Conversion Md LANDRY POCT ORDERABLES - DEVIC E Final Result [facility] ORDERS INTERFACE US documented in this encounter Visit Diagnoses Not on filedocumented in this encounter Care Teams Putty Glazer Relationship Specialty Start Date End Date Megan Infante MD [address] [facility] [place] [address] PCP - General FAMILY PRACTICE 04/06/16 Piyush Pandey MD [place] Foot[employer] Sales Coordinator CARDIOVASCULAR DISEASE 04/06/16 12/28/23 Sharmila Davis, PERMANENT WAVER, HOG CUTTER-C [address] [facility] [address] [place] [address] NURSE PRACTITIONER 01/04/17 04/03/24 Linda Block MD [address] [facility] [address] [place] [address] [place] [employer] Sales Coordinator CLINICAL CARDIAC ELECTROPHYSIOLOGY 02/08/17 04/12/23 documented as of this encounter
--- OUTSIDE RECORDS SUMMARY | 2024-09-03 20:46 | XMS_ITS | Encounter Summary ---
Author Organization [facility] Address [facility]6 [facility] [place] [address] [place] [address] Care Team Providers Care Monotypist Name Role Phone Piyush Pandey MD Unavailable UnavailMegan Rodriguez MD Primary Care Provider [phone] Sharmila Davis APRN, DUAL HOSE CEMENTER-C Unavailable Linda Block MD Unavailable [phone] Encounter Details Date Type Department Care Team (Late st Contact Info) Description 10/24/2015 Orders Only ROSALES CONVERSION [place], [place] [id number] , Generic Conversion, Social History Tobacco Use [...] st Contact Info) Description 09/25/2024 2:00 PM DEPLOYMENT MANAGER Appointment [facility] [address] [place] [address] Zayra Powell, NURSE CLINICAL [address] [place] [address] 10/16/2024 3:30 PM DEPLOYMENT MANAGER Office Visit [facility] [address] [place] [address] Brit Gonzáles MD 619 [place] [address] documented as of this encounter Procedures Procedure Name Priority Date/Time Associated Diagnosis Comments MAGNESIUM TIMED 10/24/2015 4:25 AM DEPLOYMENT MANAGER documented in this encounter Results * MAGNESIUM (10/24/2015 4:25 AM DEPLOYMENT MANAGER) MAGNESIUM 2.0 1.6 - 2.6 MG/DL 10/24/2015 5:27 AM DEPLOYMENT MANAGER [facility] ORDERS INTERFACE SERUM OR PLASMA SPECIMEN / Unknown 10/24/2015 4:25 AM DEPLOYMENT MANAGER 10/24/2015 4:43 AM DEPLOYMENT MANAGER us Generic Conversion Md [facility] LABORAT[facility] Final R esult [facility] [place] [address], documented in this encounter Visit Diagnoses Not on filedocumented in this encounter Care Teams Monotypist Relationship Specialty Start Date End Date Megan Infante MD [address] [facility] [place] [address] PCP - General FAMILY PRACTICE 04/06/16 Piyush Pandey MD [place] Limo Driver CARDIOVASCULAR DISEASE 04/06/16 12/28/23 Sharmila Davis, FRUIT STUFFER, DUAL HOSE CEMENTER-C [address]19 [facility] [address] [place] [address] NURSE PRACTITIONER 01/04/17 04/03/24 Linda Block MD 6[address] [facility] [address] [place] [address] [place] [employer]o Driver CLINICAL CARDIAC ELECTROPHYSIOLOGY 02/08/17 04/12/23 documented as of this encounter
--- OUTSIDE RECORDS SUMMARY | 2024-09-03 20:46 | XMS_ITS | Encounter Summary ---
Author Organization [facility] Address [facility]6 [facility] [place] [address] [place] [address] Care Team Providers Care Circuit Judge Name Role Phone Piyush Pandey MD Unavailable UnavailMegan Rodriguez MD Primary Care Provider [phone] Sharmila Davis APRN, DAY CARE HOME PROVIDER-C Unavailable Linda Block MD Unavailable [phone] Encounter Details Date Type Department Care Team (Late st Contact Info) Description 03/23/2016 Orders Only ROSALES CONVERSION ONE [place], [place] [id number] , Generic Conversion, Social History Tobacco Use [...] st Contact Info) Description 09/25/2024 2:00 PM RECEIVING TEAM MEMBER Appointment [facility] [address] [place] [address] Zayra Powell, RN RADIATION ONCOLOGY [address] [place] [address] 10/16/2024 3:30 PM RECEIVING TEAM MEMBER Office Visit [facility] [address] [place] [phone] Brit Gonzáles MD 619 [place] [address] documented as of this encounter Procedures Procedure Name Priority Date/Time Associated Diagnosis Comments PROTHROMBIN TIME, VENOUS NOW 03/23/2016 3:41 PM CDT documented in this encounter Results * (ABNORMAL) PROTIME/INR, VENOUS (03/23/2016 3:41 PM CDT) PROTIME 18.8(H) 11.6 - 14.3 SEC 03/23/2016 4:15 PM CDT [facility] INR 1.6(H) 0.9 - 1.1 03/23/2016 4:15 PM CDT [facility] 03/23/2016 3:41 PM CDT 03/23/2016 3:50 PM CDT us Generic Conversion Md [facility] LABORATORY Final R esult [facility] [address] [place] [address], [id number] documented in this encounter Visit Diagnoses Not on filedocumented in this encounter Care Teams Circuit Judge Relationship Specialty Start Date End Date Megan Infante MD [address] [facility] [place] [facility] [place] [address] PCP - General FAMILY PRACTICE 04/06/16 Piyush Pandey MD [place] [employer] Shop Inspector CARDIOVASCULAR DISEASE 04/06/16 12/28/23 Sharmila Davis APRN, DAY CARE HOME PROVIDER-C [address] [address] NURSE PRACTITIONER 01/04/17 04/03/24 Linda Block MD [address] [place] [address] [employer] [employer] Shop Inspector CLINICAL CARDIAC ELECTROPHYSIOLOGY 02/08/17 04/12/23 documented as of this encounter
--- OUTSIDE RECORDS SUMMARY | 2024-09-03 20:46 | XMS_ITS | Encounter Summary ---
Author Organization [facility] Address [facility]6 [facility] [address] [place] [address] Care Team Providers Care Consulting Intern Name Role Phone Piyush Pandey MD Unavailable UnavailMegan Rodriguez MD Primary Care Provider [phone] Sharmila Davis APRN, RN CLINICAL-C Unavailable Marlee Block MD Unavailable [phone] Encounter Details Date Type Department Care Team (Latest Contact Info) Description 10/23/2015 Abstract [facility] Social History Tobacco Use Types [...] st Contact Info) Description 09/25/2024 2:00 PM ALL SOURCE COLLECTION MANAGER Appointment [facility] [address] [place] [address] Zayra Powell, SHIPPING CLERK CRATING [address] [place] [address] 10/16/2024 3:30 PM ALL SOURCE COLLECTION MANAGER Office Visit [facility] [address] [place] [address] Brit Gonzáles MD 619 [place], [place] [phone] documented as of this encounter Procedures Procedure Name Priority Date/Time Associated Diagnosis Comments ECG 12-LEAD Routine 10/23/2015 5:24 PM ALL SOURCE COLLECTION MANAGER ECG 12-LEAD Routine 10/23/2015 10:17 AM ALL SOURCE COLLECTION MANAGER documented in this encounter Results * ECG 12 lead (10/23/2015 5:24 PM ALL SOURCE COLLECTION MANAGER) 10/23/2015 5:24 PM ALL SOURCE COLLECTION MANAGER Narrative [facility] - 10/23/2015 9:27 PM ALL SOURCE COLLECTION MANAGER ? [facility] ? [address] [place], [place] ??[address] ? Test Date: ?2015-10-23 Pat Name: ? OBIE SIMS ?Department: ?? 1 ? Room: ? CRU0 Gender: ? M ?Decorator Street And Building: ?? LUIS F PERAZA : ?1955 ? Requested By: MARLEE BLOCK Order Number: [id number] ? Reading : ?? Job Vizcarra ? Measurements Intervals ?[place] ? Rate: ? 64 ? P: ?59 NE: ? 222 ?QRS: ?-12 QRSD: ? 128 ?T: ?124 QT: ? 460 ? QTc: ?476 ? Interpretive Statements SINUS RHYTHM WITH FIRST DEGREE AV BLOCK POSSIBLE ANTERIOR MYOCARDIAL INFARCTION, OF INDETERMINATE AGE MODERATE T-WAVE ABNORMALITY, CONSIDER LATERAL ISCHEMIA SOURCE COLLECTION MANAGER Procedure Note Eun Landry MD - 04/18/2019 [facility] [address] [place] [address] Test Date: 2015-10-23 Pat Name: OBIE SIMS Department: 1 Room: [facility] Gender: M Decorator [address] And Building: LUIS F PERAZA : 1955 Requested By: MARLEE BLOCK Order Number: [id number] Reading MD: Job Vizcarra Measurements Intervals [place] Rate: 64 P: 59 NE: 222 QRS: -12 QRSD: 128 T: 124 QT: 460 QTc: 476 Interpretive Statements SINUS RHYTHM WITH FIRST DEGREE AV BLOCK POSSIBLE ANTERIOR MYOCARDIAL INFARCTION, OF INDETERMINATE AGE MODERATE T-WAVE ABNORMALITY, CONSIDER LATERAL ISCHEMIA SOURCE COLLECTION MANAGER us Generic Conversion Md LANDRY ECG ORDERABLES Final R esult [facility] * ECG 12 lead (10/23/2015 10:17 AM ALL SOURCE COLLECTION MANAGER) 10/23/2015 10:1 7 AM ALL SOURCE COLLECTION MANAGER Narrative [facility] - 10/23/2015 11:29 AM ALL SOURCE COLLECTION MANAGER ? [facility] ? [address] [place], [place] ??[address] ? Test Date: ?2015-10-23 Pat Name: ? OBIE SIMS ?Department: ?? 1 ? Room: ? Gender: ? M ?Decorator Street And Building: ?? ruma HERRON: ?1955 ? Requested By: MARLEE BLOCK Order Number: [id number] ? Reading : ?? Job Vizcarra ? Measurements Intervals ?[place] ? Rate: ? 60 ? P: ?-22 NE: ? 172 ?QRS: ?-20 QRSD: ? 130 ?T: ?122 QT: ? 447 ? QTc: ?447 ? Interpretive Statements SINUS RHYTHM LEFT BUNDLE BRANCH BLOCK SOURCE COLLECTION MANAGER Procedure Note , Eun Tejeda MD - 04/18/2019 [place] [address] [place] [address] Test Date: 2015-10-23 Pat Name: OBIE SIMS Department: 1 Room: Gender: M Decorator [address] And Building: ruma : 1955 Requested By: MARLEE BLOCK Order Number: [id number] Reading MD: Job Vizcarra Measurements Intervals [place] Rate: 60 P: -22 NE: 172 QRS: -20 QRSD: 130 T: 122 QT: 447 QTc: 447 Interpretive Statements SINUS RHYTHM LEFT BUNDLE BRANCH BLOCK SOURCE COLLECTION MANAGER us Generic Conversion Md LANDRY ECG ORDERABLES Final R esult [facility] documented in this encounter Visit Diagnoses Not on filedocumented in this encounter Care Teams Consulting Intern Relationship Specialty Start Date End Date Megan Infante MD [address] [facility] [place] [address] PCP - General FAMILY PRACTICE 04/06/16 Piyush Pandey MD [place] Combat Systems Officer CARDIOVASCULAR DISEASE 04/06/16 12/28/23 Sharmila Davis, STOCKING INSPECTOR, RN CLINICAL-C [address] [facility] [address] [place] [address] NURSE PRACTITIONER 01/04/17 04/03/24 Marlee Block MD [address] [facility] [address] [place] [address] [place] Combat Systems Officer CLINICAL CARDIAC ELECTROPHYSIOLOGY 02/08/17 04/12/23 documented as of this encounter
--- OUTSIDE RECORDS SUMMARY | 2024-09-03 20:46 | XMS_ITS | Encounter Summary ---
Author Organization [facility] Address [facility] [place] [address] [place] [address] Care Team Providers Care Keno Manager Name Role Phone Piyush Pandey MD Unavailable UnavailMegan Rodriguez MD Primary Care Provider [phone] Sharmila Davis APRN, GENERATION ENGINEER-C Unavailable Linda Block MD Unavailable [phone] Encounter Details Date Type Department Care Team (Latest Contact Info) Description 10/25/2015 Abstract [facility] Medical Group Social History Tobacco [...] Contact Info) Description 09/25/2024 2:00 PM MARINE GEAR KEEPER Appointment [facility] [address] [place] [address] Zayra Powell, ANALYTICAL STATISTICIAN [address] [place] [address] 10/16/2024 3:30 PM MARINE GEAR KEEPER Office Visit [facility] [address] [place] [address] Brit Gonzáles MD [address] [place], [place] [id number] documented as of this encounter Visit Diagnoses Not on filedocumented in this encounter Care Teams Keno Manager Relationship Specialty Start Date End Date Megan Infante MD [address] [facility] [place] [address] PCP - General FAMILY PRACTICE 04/06/16 Piyush Pandey MD [place] Consumer Advocate CARDIOVASCULAR DISEASE 04/06/16 12/28/23 Sharmila Davis APRN, GENERATION ENGINEER-C [address] [facility] [address] [place] [address] NURSE PRACTITIONER 01/04/17 04/03/24 Linda Block MD [address] [facility] [address] [place] [address] [place] Consumer Advocate CLINICAL CARDIAC ELECTROPHYSIOLOGY 02/08/17 04/12/23 documented as of this encounter
--- OUTSIDE RECORDS SUMMARY | 2024-09-03 20:46 | XMS_ITS | Encounter Summary ---
Author Organization [facility] Address [facility] [place] [address] [place] [address] Care Team Providers Care Carton Liner Name Role Phone Piyush Pandey MD Unavailable Unavailabl e Megan Infante MD Primary Care Provider [phone] Sharmila Davis APRN, WATER TANKER DRIVER-C Unavailable Linda Block MD Unavailable [phone] Encounter Details Date Type Department Care Team (Late st Contact Info) Description 03/23/[address] [facility] [address] [place] [address] Martin Bhatt MD [address] [place] [address] Social History Tobacco Use Types [...] Contact Info) Description 09/25/2024 2:00 PM FINANCIAL SUPERVISOR Appointment [facility] [address] [place] [address] Zayra Powell, MARBLE SETTER [address] [place], [place] [address] 10/16/2024 3:30 PM FINANCIAL SUPERVISOR [facility] [address] [facility] [place] [address] Brit Gonzáles MD [address] [place] [address] documented as of this encounter Visit Diagnoses Diagnosis Atrial fibrillation (CMS/HCC HHS/HCC) Atrial fibrillation documented in this encounter Care Teams Carton Liner Relationship Specialty Start Date End Date Megan Infante MD [address] [facility] [place] [address] PCP - General FAMILY PRACTICE 04/06/16 Piyush Pandey MD [place] Flatwork Supervisor CARDIOVASCULAR DISEASE 04/06/16 12/28/23 Sharmila Davis, LAW TUTOR, WATER TANKER DRIVER-C [address] [facility] [address] [place] [address] NURSE PRACTITIONER 01/04/17 04/03/24 Linda Block MD [address] [facility] [address] [place] [address] Caro Flatwork Supervisor CLINICAL CARDIAC ELECTROPHYSIOLOGY 02/08/17 04/12/23 documented as of this encounter
--- OUTSIDE RECORDS SUMMARY | 2024-09-03 20:46 | XMS_ITS | Encounter Summary ---
Author Organization [facility] Address [facility] [place] [address] [place] [address] Care Team Providers Care Watch Manufacturing Supervisor Name Role Phone Piyush Pandey MD Unavailable UnavailMegan Rodriguez MD Primary Care Provider [phone] Sharmila Davis APRN, BILL CLERK-C Unavailable Linda Block MD Unavailable [phone] Encounter Details Date Type Department Care Team (Late st Contact Info) Description 03/26/2016 Orders Only [facility]ALES CONVERSION [place], [place] [id number] , Generic Conversion, Social History Tobacco Use [...] st Contact Info) Description 09/25/2024 2:00 PM CATEGORY ANALYST Appointment [facility] [address] [place] [address] Zayra Powell, LINER MACHINE OPERATOR [address] [place] [address] 10/16/2024 3:30 PM CATEGORY ANALYST Office Visit [facility] [place] [facility] [address] [place] [phone] Brit Gonzáles MD 619 [place] [address] documented as of this encounter Procedures Procedure Name Priority Date/Time Associated Diagnosis Comments PROTHROMBIN TIME, VENOUS Routine 03/26/2016 4:00 AM CDT documented in this encounter Results * (ABNORMAL) PROTIME/INR, VENOUS (03/26/2016 4:00 AM CDT) PROTIME 24.0(H) 11.6 - 14.3 SEC 03/26/2016 4:17 AM CDT [facility] INR 2.2(H) 0.9 - 1.1 03/26/2016 4:17 AM CDT [facility] 03/26/2016 4:00 AM CDT 03/26/2016 4:01 AM CDT us Generic Conversion Md [facility] Final R esult [facility] [address] [place] [address], [id number] documented in this encounter Visit Diagnoses Not on filedocumented in this encounter Care Teams Watch Manufacturing Supervisor Relationship Specialty Start Date End Date Megan Infante MD [address] [facility] [place] [address] PCP - General FAMILY PRACTICE 04/06/16 Piyush Pandey MD [place] Abe Teacher CARDIOVASCULAR DISEASE 04/06/16 12/28/23 Sharmila Davis APRN, BILL CLERK-C [address] [address] NURSE PRACTITIONER 01/04/17 04/03/24 Linda Block MD [address] [place] [address] [place] Abe Teacher CLINICAL CARDIAC ELECTROPHYSIOLOGY 02/08/17 04/12/23 documented as of this encounter
--- OUTSIDE RECORDS SUMMARY | 2024-09-03 20:46 | XMS_ITS | Encounter Summary ---
Author Organization [facility] Address [facility] [place] [address] [place] [address] Care Team Providers Care Slice Cutting Machine Operator Name Role Phone Piyush Pandey MD Unavailable UnavailMegan Rodriguez MD Primary Care Provider [phone] Sharmila Davis APRN, POWER SUPERINTENDENT-C Unavailable [phone] Linda Block MD Unavailable [phone] Encounter Details Date Type Department Care Team (Late st Contact Info) Description 10/24/2015 Orders Only [facility] CONVERSION [place], [place] [id number] , Generic Conversion, Social History Tobacco Use [...] Contact Info) Description 09/25/2024 2:00 PM SOFTWARE TOOLS BUILD ENGINEER Appointment [facility] [address] [place] [address] Zayra Powell, OVER HAULER HELPER [address] [place] [address] 10/16/2024 3:30 PM SOFTWARE TOOLS BUILD ENGINEER Office Visit [facility] [address] [place] [phone] Brit Gonzáles MD 619 [place] [address] documented as of this encounter Procedures Procedure Name Priority Date/Time Associated Diagnosis Comments CBC W/DIFF AUTOMATED TIMED 10/24/2015 4:25 AM SOFTWARE TOOLS BUILD ENGINEER documented in this encounter Results * (ABNORMAL) CBC W/DIFF AUTOMATED (10/24/2015 4:25 AM SOFTWARE TOOLS BUILD ENGINEER) WBC 9.4 4.0 - 10.8 x10'3/uL 10/24/2015 4:55 AM SOFTWARE TOOLS BUILD ENGINEER [facility] ORDERS INTERFACE RBC 4.08(L) 4.50 - 6.10 x10'6/uL 10/24/2015 4:55 AM SOFTWARE TOOLS BUILD ENGINEER [facility] ORD[facility] INTERFACE HGB 11.6(L) 13.0 - 18.0 G/DL 10/24/2015 4:55 AM SOFTWARE TOOLS BUILD ENGINEER [facility] ORD[facility] INTERFACE HCT 35.0(L) 37.0 - 52.0 % 10/24/2015 4:55 AM SOFTWARE TOOLS BUILD ENGINEER [facility] ORD[facility] INTERFACE MCV 85.8 78.0 - 100.0 FL 10/24/2015 4:55 AM SOFTWARE TOOLS BUILD ENGINEER [facility] ORD[facility] INTERFACE MCH 28.4 27.0 - 31.0 PG 10/24/2015 4:55 AM SOFTWARE TOOLS BUILD ENGINEER [facility] ORD[facility] INTERFACE MCHC 33.1 33.0 - 36.0 G/DL 10/24/2015 4:55 AM SOFTWARE TOOLS BUILD ENGINEER [facility] ORDERS INTERFACE RDW 13.9 11.5 - 14.5 % 10/24/2015 4:55 AM SOFTWARE TOOLS BUILD ENGINEER [facility] ORDERS INTERFACE PLT 174 150 - 350 x10'3/uL 10/24/2015 4:55 AM SOFTWARE TOOLS BUILD ENGINEER [facility] ORD[facility] INTERFACE MPV 11.0(H) 7.4 - 10.4 FL 10/24/2015 4:55 AM SOFTWARE TOOLS BUILD ENGINEER [facility] ORD[facility] INTERFACE ABS. NEUTROPHILS TOTAL 6.73 1.60 - 8.30 x10'3/uL 10/24/2015 4:55 AM SOFTWARE TOOLS BUILD ENGINEER [facility] ORDERS INTERFACE ABS. LYMPHOCYTES 1.44 0.80 - 4.70 x10'3/uL 10/24/2015 4:55 AM SOFTWARE TOOLS BUILD ENGINEER [facility] ORDERS INTERFACE ABS. MONOCYTES 1.09 0.00 - 1.50 x10'3/uL 10/24/2015 4:55 AM SOFTWARE TOOLS BUILD ENGINEER [facility] ORDERS INTERFACE ABS. EOSINOPHILS 0.13 0.00 - 0.40 x10'3/uL 10/24/2015 4:55 AM SOFTWARE TOOLS BUILD ENGINEER [facility] ORDERS INTERFACE ABS. BASOPHILS 0.03 0.00 - 0.20 x10'3/uL 10/24/2015 4:55 AM SOFTWARE TOOLS BUILD ENGINEER [facility] ORDERS INTERFACE ABS. IMMATURE GRANULOCYTES 0.02 0.00 - 0.03 x10'3/uL 10/24/2015 4:55 AM SOFTWARE TOOLS BUILD ENGINEER [facility] ORDERS INTERFACE ABS. NUCLEATED RBC'S 0.00 0.0 x10'3/uL 10/24/2015 4:55 AM SOFTWARE TOOLS BUILD ENGINEER [facility] LAB ORDERS INTERFACE PLASMA SPECIMEN / Unknown 10/24/2015 4:25 AM SOFTWARE TOOLS BUILD ENGINEER 10/24/2015 4:44 AM SOFTWARE TOOLS BUILD ENGINEER us Generic Conversion Md [facility] Final R [place]ult [place] [address], documented in this encounter Visit Diagnoses Not on filedocumented in this encounter Care Teams Slice Cutting Machine Operator Relationship Specialty [place] [address] [place] [address] [place] [address] PCP - General FAMILY PRACTICE 04/06/16 Piyush Pandey MD [place] Work Cleaner CARDIOVASCULAR DISEASE 04/06/16 12/28/23 Sharmila Davis APRN, POWER SUPERINTENDENT-C [address] [facility] [address] [place] [address] NURSE PRACTITIONER 01/04/17 04/03/24 Linda Block MD [address] [facility] [address] [place] [address] [place] Work Cleaner CLINICAL CARDIAC ELECTROPHYSIOLOGY 02/08/17 04/12/23 documented as of this encounter
--- OUTSIDE RECORDS SUMMARY | 2024-09-03 20:46 | XMS_ITS | Encounter Summary ---
Author Organization [facility] Address [address] [place] [address]. [place] [address] [place] [address] Care Team Providers Care Adult Care Provider Name Role Phone Unavailable Primary Care Provider Unavailabl e Reason for Visit * Reason Onset Date Comments Appointment Request 04/03/2016 Encounter Details Date Type Department Care Team (Late Contact Info) Description 04/03/2016 Telephone [facility] [address] [place] [address] Piyush Pandey MD Appointment Request [...] Pt aware and agrees to come to [place] documented in this encounter Plan of Treatment Upcoming Encounters Date Type Department Care Team (Late st Contact Info) Description 09/25/2024 2:00 PM HOSPITALIST PHYSICIAN Appointment [facility] [address] [place] [address] Zayra Powell, EAR NOSE AND THROAT SPECIALIST [address] [place] [address] 10/16/2024 3:30 PM HOSPITALIST PHYSICIAN Office Visit [facility] [address] [place] [address] Brit Gonzáles MD 619 [place] [address] documented as of this encounter Visit Diagnoses Not on filedocumented in this encounter
--- OUTSIDE RECORDS SUMMARY | 2024-09-03 20:46 | XMS_ITS | Encounter Summary ---
Author Organization [facility] Address [address] [place] [address]. [place] [address] [place] [address] Care Team Providers Care Sports Internship Name Role Phone Unavailable Primary Care Provider Unavailabl e Reason for Visit * Reason Onset Date Comments Follow Up Call 04/03/2016 Encounter Details Date Type Department Care Team (Late st Contact Info) Description 04/03/2016 Telephone [facility] [address] [place] [address] Piyush Pandey MD Follow Up [...] to 98%. Faxed their office d/c from [facility] and med list, will place in dr Pandey's [place] f/u clinic on 04/16 . documented in this encounter Plan of Treatment Upcoming Encounters Date Type Department Care Team (Late st Contact Info) Description 09/25/2024 2:00 PM CASH APPLICATION CLERK Appointment [facility] [address] [place] [address] Zayra Powell, PUG MACHINE OPERATOR [address] [place] [address] 10/16/2024 3:30 PM CASH APPLICATION CLERK Office Visit [facility] [address] [place] [address] Brit Gonzáles MD 619 [place] [address] documented as of this encounter Visit Diagnoses Not on filedocumented in this encounter
--- OUTSIDE RECORDS SUMMARY | 2024-09-03 20:46 | XMS_ITS | Encounter Summary ---
Author Organization [facility] Address Critical access hospital6 [facility] [place] [address] [place] [address] Care Team Providers Care Summer School Coordinator Name Role Phone Piyush Pandey MD Unavailable UnavailMegan Rodriguez MD Primary Care Provider [phone] Sharmila Davis APRN, CRAYON SORTING MACHINE FEEDER-C Unavailable Linda Block MD Unavailable [phone] Encounter Details Date Type Department Care Team (Late st Contact Info) Description 03/26/2016 Orders Only ROSALES CONVERSION [place], [place] [id number] , Generic Conversion, Social History Tobacco Use [...] Contact Info) Description 09/25/2024 2:00 PM BUSINESS OPERATIONS SPECIALIST Appointment [facility] [address] [place] [address] Zayra Powell, SLATE HANDLER [address] [place] [address] 10/16/2024 3:30 PM BUSINESS OPERATIONS SPECIALIST Office Visit [facility] [address] [place] [phone] Brit Gonzáles MD [address] [place] [address] documented as of this encounter Procedures Procedure Name Priority Date/Time Associated Diagnosis Comments POCT GLUCOSE - VALLECILLO DOCKED DEVICE Routine 03/26/2016 8:53 AM CDT documented in this encounter Results * (ABNORMAL) POCT glucose (03/26/2016 8:53 AM CDT) GLUCOSE POC 144(H) 70 - 109 03/26/2016 8:58 AM CDT [facility] ORDERS INTERFACE WHOLE BLOOD SPECIMEN / Unknown 03/26/2016 8:53 AM CDT 03/26/2016 8:58 AM CDT us Generic Conversion Md [facility] POCT ORDERABLES - DEVIC E Final Result [facility] ORDERS INTERFACE [place] documented in this encounter Visit Diagnoses Not on filedocumented in this encounter Care Teams Summer School Coordinator Relationship Specialty Start Date End Date Megan Infante MD [address] [facility] [place] [phone] PCP - General FAMILY PRACTICE 04/06/16 Piyush Pandey MD [place] Senior Net Developer CARDIOVASCULAR DISEASE 04/06/16 12/28/23 Sharmila Davis, STOPE MINER, CRAYON SORTING MACHINE FEEDER-C [address] [facility] [address] [place] [address] NURSE PRACTITIONER 01/04/17 04/03/24 Linda Block MD 619 [facility] [address] [place] [address] [place] Senior Net Developer CLINICAL CARDIAC ELECTROPHYSIOLOGY 02/08/17 04/12/23 documented as of this encounter
--- OUTSIDE RECORDS SUMMARY | 2024-09-03 20:46 | XMS_ITS | Encounter Summary ---
Author Organization [facility] Address [facility] [place] [address] [place] [address] Care Team Providers Care Filter Press Tender Name Role Phone Piyush Pandey MD Unavailable Unavailabl e Megan Infante MD Primary Care Provider [phone] Sharmila Davis APRN, CAD ENGINEER-C Unavailable Linda Block MD Unavailable [phone] Encounter Details Date Type Department Care Team (Late st Contact Info) Description 01/27/2016 Abstract [facility] [address] [place] [address] Linda Block MD [address] [facility] [address] [place] [address] Social History Tobacco Use Types Packs/Day Years [...] st Contact Info) Description 09/25/2024 2:00 PM ROBOTICS TECHNICIAN Appointment [facility] [address] [place] [address] Zayra Powell, DUSTER TENDER [address] [place] [address] 10/16/2024 3:30 PM ROBOTICS TECHNICIAN Office [facility] [address] [place] [address] Brit Gonzáles MD 619 [place] [address] documented as of this encounter Visit Diagnoses Diagnosis Chronic atrial fibrillation ([facility]/HCC [facility]/HCC) Atrial fibrillation documented in this encounter Care Teams Filter Press Tender Relationship Specialty Start Date End Date Megan Infante MD [address] [place] [address] PCP - General FAMILY PRACTICE 04/06/16 Piyush Pandey MD [place] [employer] Power Plant Engineer CARDIOVASCULAR DISEASE 04/06/16 12/28/23 Sharmila Davis APRN, CAD ENGINEER-C 619 [facility] [address] [place] [address] NURSE PRACTITIONER 01/04/17 04/03/24 Linda Block MD 619 [facility] [address] [place] [address] [place] [employer] Power Plant Engineer CLINICAL CARDIAC ELECTROPHYSIOLOGY 02/08/17 04/12/23 documented as of this encounter
--- OUTSIDE RECORDS SUMMARY | 2024-09-03 20:46 | XMS_ITS | Encounter Summary ---
Author Organization [facility] Address [facility]6 [facility] [place] [address] [place] [address] Care Team Providers Care Bone Glue Maker Name Role Phone Piyush Pandey MD Unavailable UnavailMegan Rodriguez MD Primary Care Provider [phone] Sharmila Davis APRN, PRACTICE BILLING ASSOCIATE-C Unavailable [phone] Linda Block MD Unavailable [phone] Encounter Details Date Type Department Care Team (Latest Contact Info) Description 03/26/2016 Abstract [facility] Medical Group Social [...] st Contact Info) Description 09/25/2024 2:00 PM OUTSIDE MACHINIST HELPER Appointment [facility] [address] [place] [address] Zayra Powell, INSTRUCTOR MILITARY SCIENCE [address] [place] [address] 10/16/2024 3:30 PM OUTSIDE MACHINIST HELPER Office Visit [facility] [address] [place] [address] Brit Gonzáles MD [address]19 [place], [place] [phone] documented as of this encounter Visit Diagnoses Not on filedocumented in this encounter Care Teams Bone Glue Maker Relationship Specialty Start Date End Date Megan Infante MD [address] [facility] [place] [address] PCP - General FAMILY PRACTICE 04/06/16 Piyush Pandey MD [place] Sheet Metal Shop Foreman CARDIOVASCULAR DISEASE 04/06/16 12/28/23 Sharmila Davis, ROUTE DELIVERY SERVICE DRIVER, PRACTICE BILLING ASSOCIATE-C [address] [facility] [address] [place] [address] NURSE PRACTITIONER 01/04/17 04/03/24 Linda Block MD 619 [facility] [address] [place] [address] [place] Sheet Metal Shop Foreman CLINICAL CARDIAC ELECTROPHYSIOLOGY 02/08/17 04/12/23 documented as of this encounter
--- OUTSIDE RECORDS SUMMARY | 2024-09-03 20:46 | XMS_ITS | Encounter Summary ---
Author Organization [facility] Address [facility]6 [place] [address] [place] [address] Care Team Providers Care Port Surveyor Name Role Phone Piyush Pandey MD, Amy E MD Primary Care Provider [phone] Reason for Visit * Reason Onset Date Comments Question 04/06/2016 Encounter Details Date Type Department Care Team ([facility] st Contact Info) Description 04/06/2016 Telephone [facility] [address] [place] [address] Sharmila Davis, BUTADIENE CONVERTOR OPERATOR, MILLING/POLISHING OPERATOR-C [address] [facility] [address] [place] [address] Question Social History Tobacco Use [...] st Contact Info) Description 09/25/2024 2:00 PM PSYCHOLOGIST ENGINEERING Appointment [facility] [address] [place] [address] Zayra Powell, SUPERVISOR IRRIGATION [address] [place] [address] 10/16/2024 3:30 PM PSYCHOLOGIST ENGINEERING Office Visit [facility] [address] [place] [address] Brit Gonzáles MD [address] [place] [address] documented as of this encounter Visit Diagnoses Not on filedocumented in this encounter Care Teams Port Surveyor Relationship Specialty Start Date End Date Megan Infante MD [address] [facility] [place] [address] PCP - General FAMILY PRACTICE 04/06/16 Piyush Pandey MD [place] Academic Adviser CARDIOVASCULAR DISEASE 04/06/16 12/28/23 documented as of this encounter
--- OUTSIDE RECORDS SUMMARY | 2024-09-03 20:46 | XMS_ITS | Encounter Summary ---
Author Organization [facility] Address [address] [place] [address]. [place] [address] [place] [address] Care Team Providers Care Analytical Manager Name Role Phone Piyush Pandey MD Unavailable Unavailabl Megan Leos MD Primary Care Provider [phone] Sharmila Davis APRN UNIFORM ROOM ATTENDANT-C Unavailable [phone] Linda Block MD Unavailable [phone] Encounter Details Date Type Department Care Team (Late st Contact Info) Description 04/03/[address] [facility] [address] [place] [address] Megan Infante MD [address] [place] [address] Social History Tobacco Use Types Packs/Day [...] Info) Description 09/25/2024 2:00 PM SOCIAL MEDIA SENIOR ASSOCIATE Appointment [facility] [address] [place] [address] Zayra Powell, DIRECTOR OF SALES SUPPORT [address] [place] [address] 10/16/2024 3:30 PM SOCIAL MEDIA SENIOR ASSOCIATE Office Visit [facility] [address] [place] [address] Brit Gonzáles MD 619 [place] [address] documented as of this encounter Visit Diagnoses Diagnosis Shortness of breath documented in this encounter Care Teams Analytical Manager Relationship Specialty Start Date End Date Megan Infante MD [address] [place] [address] PCP - General FAMILY PRACTICE 04/06/16 Piyush Pandey MD [place] [facility] CARDIOVASCULAR DISEASE 04/06/16 12/28/23 Sharmila Davis, TELEVISION SERVICE ENGINEER, UNIFORM ROOM ATTENDANT-C [address] [facility] [address] [place] [address] NURSE PRACTITIONER 01/04/17 04/03/24 Linda Block MD 619 [facility] [address] [place] [address] [place] [facility] CLINICAL CARDIAC ELECTROPHYSIOLOGY 02/08/17 04/12/23 documented as of this encounter
--- OUTSIDE RECORDS SUMMARY | 2024-09-03 20:46 | XMS_ITS | Encounter Summary ---
Author Organization [facility] Address [facility] [address] [place] [address] Care Team Providers Care Sap Bpc Developer Name Role Phone Piyush Pandey MD Unavailable UnavailMegan Rodriguez MD Primary Care Provider [phone] Sharmila Davis APRN, DIRECTOR OF SCOUT WORK-C Unavailable Marlee Block MD Unavailable [phone] Encounter Details Date Type Department Care Team (Latest Contact Info) Description 03/24/2016 Abstract [facility] Social History Tobacco Use Types [...] st Contact Info) Description 09/25/2024 2:00 PM POLICE ACADEMY PROGRAM COORDINATOR Appointment [facility] [address] [place] [address] Zayra Powell, SPECIALTY DEVELOPMENT CONSULTANT [address] [place] [address] 10/16/2024 3:30 PM POLICE ACADEMY PROGRAM COORDINATOR Office Visit [place] [facility] [address] [place] [address] Brit Gonzáles MD [address] [place], [place] [phone] documented as of this encounter Procedures Procedure Name Priority Date/Time Associated Diagnosis Comments ECG 12-LEAD Routine 03/24/2016 12:10 PM CDT ECG 12-LEAD Routine 03/24/2016 5:21 AM CDT documented in this encounter Results * ECG 12 lead (03/24/2016 12:10 PM CDT) 03/24/2016 12:1 0 PM CDT Narrative [facility] - 03/24/2016 1:47 PM CDT ? [facility] ? [address], [place] ??[address] ? Test Date: ?2016-03-24 Pat Name: ? OBIE BELLHAN ?Department: ?? 1 ? Room: ? 0468A Gender: ? M ?Product Assurance Engineer: ?? ruma HERRON: ?1955 ? Requested By: MARLEE BLOCK Order Number: [id number] ? Reading : ?? Job Vizcarra ? Measurements Intervals ?Banco ? Rate: ? 66 ? P: ?6 NJ: ? 162 ?QRS: ?-27 QRSD: ? 132 ?T: ?124 QT: ? 453 ? QTc: ?478 ? Interpretive Statements SINUS RHYTHM BORDERLINE LEFT AXIS DEVIATION INTRAVENTRICULAR CONDUCTION DELAY Procedure Note Eun Landry, - 04/18/2019 [place] [address] [place] [address] Test Date: 2016-03-24 Pat Name: OBIE SIMS Department: 1 Room: [facility] Gender: M Product Assurance Engineer: ruma : 1955 Requested By: MARLEE BLOCK Order Number: [id number] Reading MD: Job Vizcarra Measurements Intervals Banco Rate: 66 P: 6 NJ: 162 QRS: -27 QRSD: 132 T: 124 QT: 453 QTc: 478 Interpretive Statements SINUS RHYTHM BORDERLINE LEFT AXIS DEVIATION INTRAVENTRICULAR CONDUCTION DELAY us Generic Conversion Md LANDRY ECG ORDERABLES Final R esult [facility] * ECG 12 lead (03/24/2016 5:21 AM CDT) 03/24/2016 5:21 AM CDT Narrative [facility] - 03/24/2016 7:55 AM CDT ? [facility] ? [address], [place] ??[address] ? Test Date: ?2016-03-24 Pat Name: ? OBIE SIMS ?Department: ?? 1 ? Room: ? 0468A Gender: ? M ?Product Assurance Engineer: ?? ruma : ?1955 ? Requested By: JESSICA ROUSSEAU Order Number: [id number] ? Reading MD: ?? Job Vizcarra ? Measurements Intervals ?Banco ? Rate: ? 54 ? P: ? NJ: ? 0 ?QRS: ?-24 QRSD: ? 130 ?T: ?143 QT: ? 466 ? QTc: ?445 ? Interpretive Statements ATRIAL FLUTTER/TACHYCARDIA WITH SLOW VENTRICULAR RESPONSE SEPTAL MYOCARDIAL INFARCTION, PROBABLY OLD MODERATE T-WAVE ABNORMALITY, CONSIDER LATERAL ISCHEMIA Procedure Note , Generic Conversion, - 04/18/2019 [place] [address] [place] [address] Test Date: 2016-03-24 Pat Name: OBIE SIMS Department: 1 Room: [facility] Gender: M Product Assurance Engineer: ruma : 1955 Requested By: JESSICA ROUSSEAU Order Number: [id number] Reading MD: Job Vizcarra Measurements Intervals Banco Rate: 54 P: NJ: 0 QRS: -24 QRSD: 130 T: 143 QT: 466 QTc: 445 Interpretive Statements ATRIAL FLUTTER/TACHYCARDIA WITH SLOW VENTRICULAR RESPONSE SEPTAL MYOCARDIAL INFARCTION, PROBABLY OLD MODERATE T-WAVE ABNORMALITY, CONSIDER LATERAL ISCHEMIA us Generic Conversion Md LANDRY ECG ORDERABLES Final R esult [facility] documented in this encounter Visit Diagnoses Not on filedocumented in this encounter Care Teams Sap Bpc Developer Relationship Specialty Start Date End Date Megan Infante MD [address] [facility] [place] [address] PCP - General FAMILY PRACTICE 04/06/16 Piyush Pandey MD [place] Machine Feed Operator CARDIOVASCULAR DISEASE 04/06/16 12/28/23 Sharmila Davis, QUALITY ENGINEER, DIRECTOR OF SCOUT WORK-C [address] [place] [phone] NURSE PRACTITIONER 01/04/17 04/03/24 Marlee Block MD [address] [facility] [address] [phone] [place] Machine Feed Operator CLINICAL CARDIAC ELECTROPHYSIOLOGY 02/08/17 04/12/23 documented as of this encounter
--- OUTSIDE RECORDS SUMMARY | 2024-09-03 20:46 | XMS_ITS | Encounter Summary ---
Author Organization [facility] Address [facility]6 [facility] [place] [address] [place] [address] Care Team Providers Care Linux Kernel Developer Name Role Phone Piyush Pandey MD Unavailable UnavailMegan Rodriguez MD Primary Care Provider [phone] Sharmila Davis APRN, CORROSION CONTROL FITTER-C Unavailable Linda Block MD Unavailable [phone] Encounter Details Date Type Department Care Team (Late st Contact Info) Description 03/25/2016 Orders Only ROSAL[facility] CONVERSION [address] [place], [place] [id number] , Generic Conversion, Social History Tobacco Use [...] st Contact Info) Description 09/25/2024 2:00 PM POSTBED STITCHER Appointment [facility] [address] [place] [address] Zayra Powell, LIQUID HYDROGEN PLANT OPERATOR [address] [place] [address] 10/16/2024 3:30 PM POSTBED STITCHER Office Visit [facility] [address] [place] [phone] Brit Gonzáles MD [address] [place] [address] documented as of this encounter Procedures Procedure Name Priority Date/Time Associated Diagnosis Comments POCT GLUCOSE - VALLECILLO DOCKED DEVICE Routine 03/25/2016 12:05 AM CDT documented in this encounter Results * (ABNORMAL) POCT glucose (03/25/2016 12:05 AM CDT) GLUCOSE POC 125(H) 70 - 109 03/25/2016 6:10 AM CDT [facility] ORDERS INTERFACE WHOLE BLOOD SPECIMEN / Unknown 03/25/2016 12:05 AM CDT 03/25/2016 6:10 AM CDT us Generic Conversion Md LANDRY POCT ORDERABLES - DEVIC E Final Result [facility] ORDERS INTERFACE US documented in this encounter Visit Diagnoses Not on filedocumented in this encounter Care Teams Linux Kernel Developer Relationship Specialty Start Date End Date Megan Infante MD [address] [facility] [place] [phone] PCP - General FAMILY PRACTICE 04/06/16 Piyush Pandey MD [place] Turpentine Farmer CARDIOVASCULAR DISEASE 04/06/16 12/28/23 Sharmila Davis, LEADLIGHTER, CORROSION CONTROL FITTER-C [address] [facility] [address] [place] [phone] NURSE PRACTITIONER 01/04/17 04/03/24 Linda Block MD [address] [facility] [address] [place] [phone] [place] Turpentine Farmer CLINICAL CARDIAC ELECTROPHYSIOLOGY 02/08/17 04/12/23 documented as of this encounter
--- OUTSIDE RECORDS SUMMARY | 2024-09-03 20:46 | XMS_ITS | Encounter Summary ---
Author Organization [facility] Address [address] [place] [address]. [place] [address] [place] [address] Care Team Providers Care Newborn Photographer Name Role Phone Piyush Pandey MD, Amy E MD Primary Care Provider Encounter Details Date Type Department Care Team (Late st Contact Info) Description 03/28/2016 COMPRESSOR HOUSE OPERATOR ONLY [facility] [address] [place] [address] Martin Bhatt MD [address] [place] [address] Social History Tobacco Use Types Packs/Day Years Used Date Smoking Tobacco: Former Sex and Gender Information Value Date Recorded Sex Assigned at Not on file Legal Sex Male 10:01 PM CDT Gender Identity Not on file Sexual Orientation Not on file documented as of this encounter Progress Notes * Martin Armstrong MD - 03/28/2016 8:32 AM CDT DATE: 03/28/16 @ 0603 [facility] PAGE 1 USER: [email or web address] Medication Reconciliation PHYNRXRI DISCHARGE MEDICATION INSTRUCTIONS BETHANYOBIE LAVELLE Location: 4W BMI: 34.2 MR#: [id number] Admit Date: 03/23/16 : 1955 M Weight: 99.819414 kg Height: 170.18 cm Allergies: No Known [...] PAGE ACCESS ID: DATE: 03/28/16 @ 0603 [facility] LIVE PAGE 2 USER: [email or web address] Medication Reconciliation PHYNRXRI DISCHARGE MEDICATION INSTRUCTIONS BETHANY,OBIE VALDERRAMA Location: 4W BMI: 34.2 MR#: [id number] Admit Date: 03/23/16 : 1955 M Weight: 99.928170 kg Height: 170.18 cm Allergies: No Known [...] PAGE ACCESS ID: DATE: 03/28/16 @ 0603 [facility] PAGE 3 USER: [email or web address] Medication Reconciliation PHYNRXRI DISCHARGE MEDICATION INSTRUCTIONS OBIE SIMS LAVELLE Location: 4W BMI: 34.2 MR#: [id number] Admit Date: 03/23/16 : 1955 M Weight: 99.606926 kg Height: 170.18 cm Allergies: No Known [...] PAGE ACCESS ID: DATE: 03/28/16 @ 0603 [facility] PAGE 4 USER: [email or web address] Medication Reconciliation PHYNRXRI DISCHARGE MEDICATION INSTRUCTIONS BETHANYOBIE LAVELLE Location: 4W BMI: 34.2 MR#: [id number] Admit Date: 03/23/16 : 1955 M Weight: 99.802956 kg Height: 170.18 cm Allergies: No Known [...] PAGE ACCESS ID: DATE: 03/28/16 @ 0603 [facility] PAGE 5 USER: [email or web address] Medication Reconciliation PHYNRXRI DISCHARGE MEDICATION INSTRUCTIONS OBIE SIMS Location: 4W BMI: 34.2 MR#: [id number] Admit Date: 03/23/16 : 1955 M Weight: 99.699925 kg Height: 170.18 cm Allergies: No Known [...] st Contact Info) Description 09/25/2024 2:00 PM HYDRAULIC ELEVATOR CONSTRUCTOR Appointment [facility] [address] [place] [address] Zayra Powell, [facility] [address] [place] [address] 10/16/2024 3:30 PM HYDRAULIC ELEVATOR CONSTRUCTOR Office Visit [facility] [address] [place] [phone] Brit Gonzáles MD [address] [place] [address] documented as of this encounter Visit Diagnoses Not on filedocumented in this encounter Care Teams Newborn Photographer Relationship Specialty Start Date End Date Megan Infante MD [address] [place] [address] PCP - General FAMILY PRACTICE 04/06/16 Piyush Pandey MD [place] Washing Machine Mechanic CARDIOVASCULAR DISEASE 04/06/16 12/28/23 documented as of this encounter
--- OUTSIDE RECORDS SUMMARY | 2024-09-03 20:46 | XMS_ITS | Encounter Summary ---
Author Organization [facility] Address [address] [place] [address]. [place] [address] [place] [address] Care Team Providers Care Heat Sealing Machine Operator Name Role Phone Unavailable Primary Care Provider Unavailabl e Encounter Details Date Type Department Care Team (Late st Contact Info) Description 01/27/2016 Abstract [facility] [address] [place] [address] , Eun Tejeda MD Social [...] st Contact Info) Description 09/25/2024 2:00 PM TILE LAYER HELPER Appointment [facility] [address] [place] [address] Zayra Powell, ADMISSIONS RECRUITER [address] [place] [address] 10/16/2024 3:30 PM TILE LAYER HELPER Office Visit [facility] [place] [address] Brit Gonzáles MD [address] [place] [address] documented as of this encounter Procedures Procedure [...]
--- OUTSIDE RECORDS SUMMARY | 2024-09-03 20:46 | XMS_ITS | Encounter Summary ---
Author Organization [facility] Address [facility]6 [facility] [place] [address] [place] [address] Care Team Providers Care Access Registrar Name Role Phone Piyush Pandey MD [facility] MD Primary Care Provider [phone] Reason for Referral * Specialty Diagnoses / Procedures Referred By Contac t Referred To Contact Diagnoses Dyspnea Piyush Pandey MD Referral ID Status Reason Start Date Expiration Date Visits Re quested Visits Authorized Encounter Details Date Type Department Care Team (Late st Contact Info) Description 04/07/2016 Orders Only [facility] [address] [place] [address] Piyush Pandey MD Social History Tobacco Use [...] st Contact Info) Description 09/25/2024 2:00 PM DIVERSITY INTERN Appointment [facility] [address] [place] [address] Zayra Powell, JEWEL BEARING DRILLER [address] [place] [address] 10/16/2024 3:30 PM DIVERSITY INTERN Office Visit [facility] [address] [place] [address] Brit Gonzáles MD [address] [place] [address] documented as of this encounter Procedures Procedure Name Priority Date/Time Associated Diagnosis Comments PFT ORDER Routine 04/13/2016 Dyspnea documented in this encounter Results * [ZCX023] PFT Order (04/13/2016) Piyush Pandey MD PROCEDURES-ORDERABLE NO DEONTE RGE Final Result documented in this encounter Visit Diagnoses Diagnosis Dyspnea- Primary Other dyspnea and respiratory abnormality documented in this encounter Care Teams Access Registrar Relationship Specialty Start Date End Date Megan Infante MD [address] [place] [address] PCP - General FAMILY PRACTICE 04/06/16 Piyush Pandey MD [place] Crayon Sawyer CARDIOVASCULAR DISEASE 04/06/16 12/28/23 documented as of this encounter
--- OUTSIDE RECORDS SUMMARY | 2024-09-03 20:46 | XMS_ITS | Encounter Summary ---
Author Organization [facility] Address [facility] [place] [address] [place] [address] Care Team Providers Care Plasma Specialist Name Role Phone Piyush Pandey MD Unavailable UnavailMegan Rodriguez MD Primary Care Provider [phone] Sharmila Davis APRN, WINDER HELPER-C Unavailable Linda Block MD Unavailable [phone] Encounter Details Date Type Department Care Team (Late st Contact Info) Description 10/23/2015 Orders Only ROSALES CONVERSION [address] [place], [place] [id number] , Generic Conversion, Social History Tobacco Use [...] Contact Info) Description 09/25/2024 2:00 PM FOOD PREPARATION SUPERVISOR Appointment [facility] [address] [place] [address] Zayra Powell, REGULATORY LEADER [address] [place] [address] 10/16/2024 3:30 PM FOOD PREPARATION SUPERVISOR Office Visit [facility] [address] [place] [phone] Brit Gonzáles MD [address] [place] [address] documented as of this encounter Procedures Procedure Name Priority Date/Time Associated Diagnosis Comments ACT (HMT OR LHMT) Routine 10/23/2015 2:0 7 PM FOOD PREPARATION SUPERVISOR documented in this encounter Results * (ABNORMAL) ACT (HMT OR LHMT) (10/23/2015 2:07 PM FOOD PREPARATION SUPERVISOR) ACTIVATED CLOTTING TIME (ACT HMT OR LMT) 312(H) 74 - 137 SEC 10/23/2015 2:12 PM FOOD PREPARATION SUPERVISOR [facility] LAB ORDERS INTERFACE WHOLE BLOOD SPECIMEN / Unknown 10/23/2015 2:07 PM FOOD PREPARATION SUPERVISOR 10/23/2015 2:12 PM FOOD PREPARATION SUPERVISOR us Generic Conversion Md LANDRY LAB BLOOD ORDERABLES Fi nal Result Performing Organization Address City/State/[facility] Co de Phone Number [facility] [place] [address], documented in this encounter Visit Diagnoses Not on filedocumented in this encounter Care Teams Plasma Specialist Relationship Specialty Start Date End Date Megan Infante MD [address] [facility] [place] [address] PCP - General FAMILY PRACTICE 04/06/16 Piyush Pandey MD [facility] Staff Nuclear Medicine Technologist CARDIOVASCULAR DISEASE 04/06/16 12/28/23 Sharmila Davis APRN, WINDER HELPER-C [address] [facility] [address] [place] [address] NURSE PRACTITIONER 01/04/17 04/03/24 Linda Block MD [address] [facility] [address] [place] [address] [facility] Staff Nuclear Medicine Technologist CLINICAL CARDIAC ELECTROPHYSIOLOGY 02/08/17 04/12/23 documented as of this encounter
--- OUTSIDE RECORDS SUMMARY | 2024-09-03 20:46 | XMS_ITS | Encounter Summary ---
Author Organization [facility] Address [facility] [place] [address] [place] [address] Care Team Providers Care Drop Forge Hand Name Role Phone Piyush Pandey MD Unavailable UnavailMegan Rodriguez MD Primary Care Provider [phone] Sharmila Davis APRN, CUSTOMS IMPORT SPECIALIST-C Unavailable Linda Block MD Unavailable [phone] Encounter Details Date Type Department Care Team (Late st Contact Info) Description 03/27/2016 Orders Only ROSALES CONVERSION [address] [place], [place] [id number] , Generic Conversion, Social History Tobacco Use [...] st Contact Info) Description 09/25/2024 2:00 PM GLASS TECHNICIAN/INSTALLER Appointment [facility] [address] [place] [address] Zayra Powell, ERGONOMIC SPECIALIST [address] [place] [address] 10/16/2024 3:30 PM GLASS TECHNICIAN/INSTALLER Office Visit [facility] [address] [place] [phone] Brit Gonzáles MD [address] [place] [address] documented as of this encounter Procedures Procedure Name Priority Date/Time Associated Diagnosis Comments POCT GLUCOSE - VALLECILLO DOCKED DEVICE Routine 03/27/2016 7:17 AM CDT documented in this encounter Results * (ABNORMAL) POCT glucose (03/27/2016 7:17 AM CDT) GLUCOSE POC 145(H) 70 - 109 03/27/2016 7:18 AM CDT [facility] LAB ORDERS INTERFACE WHOLE BLOOD SPECIMEN / Unknown 03/27/2016 7:17 AM CDT 03/27/2016 7:18 AM CDT us Generic Conversion Md LANDRY POCT ORDERABLES - DEVIC E Final Result [facility] LAB ORDERS INTERFACE US documented in this encounter Visit Diagnoses Not on filedocumented in this encounter Care Teams Drop Forge Hand Relationship Specialty Start Date End Date Megan Infante MD [address] [place] [phone] PCP - General FAMILY PRACTICE 04/06/16 Piyush Pandey MD [place] [employer] CARDIOVASCULAR DISEASE 04/06/16 12/28/23 Sharmila Davis, PROFESSIONAL NURSING TUTOR, CUSTOMS IMPORT SPECIALIST-C [address] [facility] [address] [place] [address] NURSE PRACTITIONER 01/04/17 04/03/24 Linda Block MD [address] [facility] [address] [place] [address] [place] [employer] CLINICAL CARDIAC ELECTROPHYSIOLOGY 02/08/17 04/12/23 documented as of this encounter
--- OUTSIDE RECORDS SUMMARY | 2024-09-03 20:46 | XMS_ITS | Encounter Summary ---
Author Organization [facility] Address [facility]6 [facility] [place] [address] [place] [address] Care Team Providers Care Ben Day Artist Name Role Phone Piyush Pandey MD Unavailable UnavailMegan Rodriguez MD Primary Care Provider [phone] Sharmila Davis APRN, TABLET REPAIR-C Unavailable Linda Block MD Unavailable [phone] Encounter Details Date Type Department Care Team (Late st Contact Info) Description 10/24/2015 Orders Only ROSALES CONVERSION [address] [place], [place] [id number] , Generic Conversion, Social History Tobacco Use [...] Contact Info) Description 09/25/2024 2:00 PM PRODUCT DEVELOPMENT INTERN Appointment [facility] [address] [place] [address] Zayra Pwoell, UNIFORM MAKER [address] [place] [address] 10/16/2024 3:30 PM PRODUCT DEVELOPMENT INTERN Office Visit [facility] [address] [place] [phone] Brit Gonzáles MD [address] [place] [address] documented as of this encounter Procedures Procedure Name Priority Date/Time Associated Diagnosis Comments POCT GLUCOSE - VALLECILLO DOCKED DEVICE Routine 10/24/2015 6:26 AM PRODUCT DEVELOPMENT INTERN documented in this encounter Results * (ABNORMAL) POCT glucose (10/24/2015 6:26 AM PRODUCT DEVELOPMENT INTERN) GLUCOSE POC 133(H) 70 - 109 10/24/2015 9:41 AM PRODUCT DEVELOPMENT INTERN [facility] LAB ORDERS INTERFACE WHOLE BLOOD SPECIMEN / Unknown 10/24/2015 6:26 AM PRODUCT DEVELOPMENT INTERN 10/24/2015 9:41 AM PRODUCT DEVELOPMENT INTERN us Generic Conversion Md LANDRY POCT ORDERABLES - DEVIC E Final Result [facility] [place] [address], documented in this encounter Visit Diagnoses Not on filedocumented in this encounter Care Teams Ben Day Artist Relationship Specialty Start Date End Date Megan Infante MD [address] [facility] [place] [phone] PCP - General FAMILY PRACTICE 04/06/16 Piyush Pandey MD [place] Director And Professor CARDIOVASCULAR DISEASE 04/06/16 12/28/23 Sharmila Davis, CAP SIZER, TABLET REPAIR-C [address] [facility] [address] [place] [address] NURSE PRACTITIONER 01/04/17 04/03/24 Linda Block MD [address] [facility] [address] [place] [address] [place] Director And Professor CLINICAL CARDIAC ELECTROPHYSIOLOGY 02/08/17 04/12/23 documented as of this encounter
--- OUTSIDE RECORDS SUMMARY | 2024-09-03 20:46 | XMS_ITS | Encounter Summary ---
Author Organization [facility] Address [address] [place] [address]. [place] [address] [place] [address] Care Team Providers Care Information Security Analyst Name Role Phone Piyush Pandey MD [facility] MD Primary Care Provider [phone] Encounter Details Date Type Department Care Team (Late st Contact Info) Description 03/24/2016 ORGANIZATION DEVELOPMENT CONSULTANT ONLY [facility] [address] [place] [address] Linda Block MD [address] [facility] [address] [place] [address] Social History Tobacco Use Types [...] st Contact Info) Description 09/25/2024 2:00 PM FIREWALL ADMINISTRATOR Appointment [facility] [address] [place] [address] Zayra Powell, FIXED INCOME TRADING VICE PRESIDENT [address] [place] [address] 10/16/2024 3:30 PM FIREWALL ADMINISTRATOR Office Visit [facility] [address] [place] [phone] Brit Gonzáles MD [address]19 [place] [address] documented as of this encounter Visit Diagnoses Not on filedocumented in this encounter Care Teams Information Security Analyst Relationship Specialty Start Date End Date Megan Infante MD [address] [facility] [place] [address] PCP - General FAMILY PRACTICE 04/06/16 Piyush Pandey MD [place] Production Zone Leader CARDIOVASCULAR DISEASE 04/06/16 12/28/23 documented as of this encounter
--- OUTSIDE RECORDS SUMMARY | 2024-09-03 20:46 | XMS_ITS | Encounter Summary ---
Author Organization [facility] Address [facility] [place] [address] [place] [address] Care Team Providers Care Pump Tender Name Role Phone Piyush Pandey MD, Amy E MD Primary Care Provider [phone] Reason for Visit * Reason Onset Date Comments Letter 04/07/2016 Encounter Details Date Type Department Care Team (Late Contact Info) Description 04/07/2016 Telephone [facility] [address] [place] [address] Linda Block MD [address] [facility] [address] [place] [address] Letter Social History Tobacco Use [...] Contact Info) Description 09/25/2024 2:00 PM RETAIL STORE MANAGER Appointment [facility] [address] [place] [address] Zayra Powell, SALES REPRESENTATIVE WIRE ROPE [address] [place] [address] 10/16/2024 3:30 PM RETAIL STORE MANAGER Office Visit [facility] [address] [place] [address] Brit Gonzáles MD [address] [place] [address] documented as of this encounter Visit Diagnoses Not on filedocumented in this encounter Care Teams Pump Tender Relationship Specialty Start Date End Date Megan Infante MD [address] [place] [address] PCP - General FAMILY PRACTICE 04/06/16 Piyush Pandey MD [place] Graphic Designer CARDIOVASCULAR DISEASE 04/06/16 12/28/23 documented as of this encounter
--- OUTSIDE RECORDS SUMMARY | 2024-09-03 20:46 | XMS_ITS | Encounter Summary ---
Author Organization [facility] Address Critical access hospital6 [place] [address] [place] [address] Care Team Providers Care Hide Sorter Name Role Phone Piyush Pandey MD Unavailable UnavailMegan Rodriguez MD Primary Care Provider [phone] Sharmila Davis APRN, COAT PADDER-C Unavailable Linda Block MD Unavailable [phone] Encounter Details Date Type Department Care Team (Late st Contact Info) Description 03/25/2016 Orders Only ROSALES CONVERSION [place], [place] [id number] , Generic Conversion, Social History Tobacco Use [...] st Contact Info) Description 09/25/2024 2:00 PM GAME TRAPPER Appointment [facility] [address] [place] [address] Zayra Powell, ENVELOPE FOLDER [address] [place] [address] 10/16/2024 3:30 PM GAME TRAPPER Office Visit [facility] [address] [place] [address] Brit Gonzáles MD [address] [place] [address] documented as of this encounter Procedures Procedure Name Priority Date/Time Associated Diagnosis Comments POCT GLUCOSE - VALLECILLO DOCKED DEVICE Routine 03/25/2016 5:32 PM CDT documented in this encounter Results * POCT glucose (03/25/2016 5:32 PM CDT) GLUCOSE POC 109 70 - 109 03/25/2016 5:34 PM CDT [facility] LAB ORDERS INTERFACE WHOLE BLOOD SPECIMEN / Unknown 03/25/2016 5:32 PM CDT 03/25/2016 5:34 PM CDT us Generic Conversion Md [facility] POCT ORDERABLES - DEVIC E Final Result [facility] LAB ORDERS INTERFACE US documented in this encounter Visit Diagnoses Not on filedocumented in this encounter Care Teams Hide Sorter Relationship Specialty Start Date End Date Megan Infante MD [address] [facility] [place] [address] PCP - General FAMILY PRACTICE 04/06/16 Piyush Pandey MD [place] Stone Planer CARDIOVASCULAR DISEASE 04/06/16 12/28/23 Sharmila Davis, CHOPPER OPERATOR, COAT PADDER-C 6[address] [facility] [address] [place] [address] NURSE PRACTITIONER 01/04/17 04/03/24 Linda Block MD 619 [facility] [address] [place] [address] [facility] Stone Planer CLINICAL CARDIAC ELECTROPHYSIOLOGY 02/08/17 04/12/23 documented as of this encounter
--- OUTSIDE RECORDS SUMMARY | 2024-09-03 20:46 | XMS_ITS | Encounter Summary ---
Author Organization [facility] Address [facility] [place] [address] [place] [address] Care Team Providers Care Sql Database Administrator Name Role Phone Piyush Pandey MD Unavailable UnavailMegan Rodriguez MD Primary Care Provider [phone] Sharmila Davis APRN, CLEANER CARPET AND UPHOLSTERY-C Unavailable [phone] Linda Block MD Unavailable [phone] Encounter Details Date Type Department Care Team (Late st Contact Info) Description 10/24/2015 Orders Only ROSALES CONVERSION ONE [place], [place] [id number] , Generic Conversion, Social History Tobacco Use [...] Contact Info) Description 09/25/2024 2:00 PM GENERAL LABORER Appointment [facility] [address] [place] [address] Zayra Powell, AUTOMOTIVE TECHNOLOGY INSTRUCTOR [address] [place] [address] 10/16/2024 3:30 PM GENERAL LABORER Office Visit [facility] [address] [place] [phone] Brit Gonzáles MD [address] [place] [address] documented as of this encounter Procedures Procedure Name Priority Date/Time Associated Diagnosis Comments BASIC METABOLIC PANEL TIMED 10/24/2015 4:25 AM GENERAL LABORER documented in this encounter Results * (ABNORMAL) BASIC METABOLIC PANEL (10/24/2015 4:25 AM GENERAL LABORER) SODIUM S/P/B 134(L) 135 - 147 MMOL/L 10/24/2015 5:27 AM GENERAL LABORER [facility] LAB ORDERS INTERFACE POTASSIUM S/P/B 3.7 3.5 - 5.0 MMOL/L 10/24/2015 5:27 AM GENERAL LABORER [facility] LAB ORDERS INTERFACE CHLORIDE S/P/B 101 98 - 107 MMOL/L 10/24/2015 5:27 AM GENERAL LABORER [facility] LAB ORDERS INTERFACE CO2 25.3 22 - 29 MMOL/L 10/24/2015 5:27 AM [facility] LAB ORDERS INTERFACE GLUCOSE 103 70 - 109 MG/DL 10/24/2015 5:27 AM GENERAL LABORER [facility] LAB ORDERS INTERFACE BUN 16 8 - 26 MG/DL 10/24/2015 5:27 AM GENERAL LABORER [facility] LAB ORDERS INTERFACE CREATININE S/P/B 1.00 0.70 - 1.30 MG/DL 10/24/2015 5:27 AM [facility] LAB ORDERS INTERFACE CALCIUM S/P/B 9.2 8.8 - 10.0 MG/DL 10/24/2015 5:27 AM GENERAL LABORER [facility] LAB ORDERS INTERFACE EGFR NON-AFR. AMER. 76 >60 ML/MIN/1.7 3 M2 10/24/2015 5:27 AM GENERAL LABORER [facility] LAB ORDERS INTERFACE EGFR AFR. AMER. 92 >60 ML/MIN/1.7 3 M2 10/24/2015 5:27 AM [facility] HS LAB ORDERS INTERFACE ANION GAP 7.7 MMOL/L 10/24/2015 5:27 AM [facility] LAB ORDERS INTERFACE OSMOLALITY (CALC) 270 MOSM/KG 10/24/2015 5:27 AM [facility] LAB ORDERS INTERFACE PLASMA SPECIMEN / Unknown 10/24/2015 4:25 AM GENERAL LABORER 10/24/2015 4:43 AM GENERAL LABORER us Generic Conversion Md [facility] Final R esult [facility] [place] [address], documented in this encounter Visit Diagnoses Not on filedocumented in this encounter Care Teams Sql Database Administrator Relationship Specialty Start Date End Date Megan Infante MD [address] [place] [address] PCP - General FAMILY PRACTICE 04/06/16 Piyush Pandey MD [place] Miniature Set Constructor CARDIOVASCULAR DISEASE 04/06/16 12/28/23 Sharmila Davis, PARALEGAL ASSISTANT, CLEANER CARPET AND UPHOLSTERY-C [address] [facility] [address] [place] [address] NURSE PRACTITIONER 01/04/17 04/03/24 Linda Block MD [address] [facility] [address] [place] [address] [place] Miniature Set Constructor CLINICAL CARDIAC ELECTROPHYSIOLOGY 02/08/17 04/12/23 documented as of this encounter
--- OUTSIDE RECORDS SUMMARY | 2024-09-03 20:46 | XMS_ITS | Encounter Summary ---
Author Organization [facility] Address Formerly [facility], [id number] [facility] [place] [address] [place] [address] Care Team Providers Care Stock Holder Name Role Phone Piyush Pandey MD Unavailable UnavailMegan Rodriguez MD Primary Care Provider [phone] Sharmila Davis APRN, CARPET INSTALLER-C Unavailable [phone] Linda Block MD Unavailable [phone] Encounter Details Date Type Department Care Team (Late st Contact Info) Description 03/23/2016 Orders Only ROSALES CONVERSION ONE [place], [place] [id number] , Generic Conversion, Social History Tobacco Use [...] st Contact Info) Description 09/25/2024 2:00 PM SCRIP CLERK Appointment [facility] [address] [place] [address] Zayra Powell, SALES OPERATIONS CONSULTANT [address] [place] [address] 10/16/2024 3:30 PM SCRIP CLERK Office Visit [facility] [address] [place] [address] Brit Gonzáles MD 619 [place] [address] documented as of this encounter Procedures Procedure Name Priority Date/Time Associated Diagnosis Comments PARTIAL THROMBOPLASTIN TIME,PTT NOW 03/23/2016 3:41 PM CDT documented in this encounter Results * PARTIAL THROMBOPLASTIN TIME,PTT (03/23/2016 3:41 PM CDT) PTT 28.1 22.0 - 35.0 SEC 03/23/2016 4:09 PM CDT [facility] PLASMA SPECIMEN / Unknown 03/23/2016 3:41 PM CDT 03/23/2016 3:50 PM CDT us Generic Conversion Md [facility] Final R esult [facility] [address] [place] [address], [id number] documented in this encounter Visit Diagnoses Not on filedocumented in this encounter Care Teams Stock Holder Relationship Specialty Start Date End Date Megan Infante MD [address] [facility] [place] [address] PCP - General FAMILY PRACTICE 04/06/16 Piyush Pandey MD [place] Blueprint Developer CARDIOVASCULAR DISEASE 04/06/16 12/28/23 Sharmila Davis APRN, CARPET INSTALLER-C [address] [facility] [address] [place] [address] NURSE PRACTITIONER 01/04/17 04/03/24 Linda Block MD [address] [facility] [address] [place] [address] [place] Blueprint Developer CLINICAL CARDIAC ELECTROPHYSIOLOGY 02/08/17 04/12/23 documented as of this encounter
--- OUTSIDE RECORDS SUMMARY | 2024-09-03 20:46 | XMS_ITS | Encounter Summary ---
Author Organization [facility] Address [address] [place] [address]. [place] [address] [place] [address] Care Team Providers Care Mining Machinery Assembler Name Role Phone Unavailable Primary Care Provider Unavailabl e Encounter Details Date Type Department Care Team (Late st Contact Info) Description 11/25/2015 Abstract [facility] [address] [place] [phone] , Eun Tejeda MD Social History Tobacco [...] st Contact Info) Description 09/25/2024 2:00 PM HARDENER HELPER Appointment [facility] [address] [place] [address] Zayra Powell, RN TRAUMA [address] [place] [address] 10/16/2024 3:30 PM HARDENER HELPER Office Visit [facility] [place] [address] Brit Gonzáles MD 619 [place] [address] documented as of this encounter Visit Diagnoses Not on filedocumented in this encounter
--- OUTSIDE RECORDS SUMMARY | 2024-09-03 20:46 | XMS_ITS | Encounter Summary ---
Author Organization [facility] Address [facility]ly [facility] [place] [facility]6 [facility] [place] [address] [place] [address] Care Team Providers Care Stock Crane Operator Name Role Phone Piyush Pandey MD Unavailable UnavailMegan Rodriguez MD Primary Care Provider [phone] Sharmila Davis APRN, OTC CLERK-C Unavailable [phone] Linda Block MD Unavailable [phone] Encounter Details Date Type Department Care Team (Late st Contact Info) Description 03/24/2016 Orders Only ROSALES CONVERSION ONE [place], [place] [id number] , Generic Conversion, Social History Tobacco Use [...] st Contact Info) Description 09/25/2024 2:00 PM PROJECTS MANAGER Appointment [facility] [address] [place] [address] Zayra Powell, OVERSEAMER [address] [place] [address] 10/16/2024 3:30 PM PROJECTS MANAGER Office Visit [facility] [address] [place] [phone] Brit Gonzáles MD [address]19 [place] [address] documented as of this encounter Procedures Procedure Name Priority Date/Time Associated Diagnosis Comments POCT GLUCOSE - VALLECILLO DOCKED DEVICE Routine 03/24/2016 7:08 AM CDT documented in this encounter Results * (ABNORMAL) POCT glucose (03/24/2016 7:08 AM CDT) GLUCOSE POC 156(H) 70 - 109 03/24/2016 7:11 AM CDT [facility] LAB ORDERS INTERFACE Comment:RN Notified WHOLE BLOOD SPECIMEN / Unknown 03/24/2016 7:08 AM CDT 03/24/2016 7:11 AM CDT us Generic Conversion Md LANDRY POCT ORDERABLES - DEVIC E Final Result [facility] LAB ORDERS INTERFACE US documented in this encounter Visit Diagnoses Not on filedocumented in this encounter Care Teams Stock Crane Operator Relationship Specialty Start Date End Date Megan Infante MD [address] [facility] [place] [address] PCP - General FAMILY PRACTICE 04/06/16 Piyush Pandey MD [place] Room Server CARDIOVASCULAR DISEASE 04/06/16 12/28/23 Sharmlia Davis APRN, OTC CLERK-C 619 [facility] [address] [place] [address] NURSE PRACTITIONER 01/04/17 04/03/24 Linda Block MD 619 [facility] [address] [place] [address] [place] Room Server CLINICAL CARDIAC ELECTROPHYSIOLOGY 02/08/17 04/12/23 documented as of this encounter
--- OUTSIDE RECORDS SUMMARY | 2024-09-03 20:46 | XMS_ITS | Encounter Summary ---
Author Organization [facility] Address [facility]6 [place] [address] [place] [address] Care Team Providers Care Adult Education Teacher Name Role Phone Piyush Pandey MD Unavailable UnavailMegan Rodriguez MD Primary Care Provider [phone] hSarmila Davis APRN, OIL FIELD OPERATOR-C Unavailable Linda Block MD Unavailable [phone] Encounter Details Date Type Department Care Team (Late st Contact Info) Description 10/24/2015 Orders Only ROSALES CONVERSION ONE [place], [place] [id number] , Generic Conversion, Social History Tobacco Use [...] Contact Info) Description 09/25/2024 2:00 PM TEST SPECIALIST Appointment [facility] [address] [place] [address] Zayra Powell, TWO WAY RADIO INSTALLER [address] [place] [address] 10/16/2024 3:30 PM TEST SPECIALIST Office Visit [facility] [address] [place] [address] Brit Gonzáles MD 619 [place] [address] documented as of this encounter Procedures Procedure Name Priority Date/Time Associated Diagnosis Comments PROTHROMBIN TIME, VENOUS TIMED 10/24/2015 4:25 AM TEST SPECIALIST documented in this encounter Results * PROTIME/INR, VENOUS (10/24/2015 4:25 AM TEST SPECIALIST) PROTIME 13.3 11.6 - 14.3 SEC 10/24/2015 5:[address] [facility] LAB ORDERS INTERFACE INR 1.0 0.9 - 1.1 10/24/2015 5:[address] [facility] LAB ORDERS INTERFACE 10/24/2015 4:25 AM TEST SPECIALIST 10/24/2015 4:43 AM TEST SPECIALIST us Generic Conversion Md [facility] Final R esult Performing Organization Address City/State/[facility] Co de Phone Number [facility] LAB ORDERS INTERFACE [address] documented in this encounter Visit Diagnoses Not on filedocumented in this encounter Care Teams Adult Education Teacher Relationship Specialty Start Date End Date Megan Infante MD [address] [facility] [place] [address] PCP - General FAMILY PRACTICE 04/06/16 Piyush Pandey MD [place] Development Officer CARDIOVASCULAR DISEASE 04/06/16 12/28/23 Sharmila Davis APRN, OIL FIELD OPERATOR-C [address] [facility] [address] [place] [address] NURSE PRACTITIONER 01/04/17 04/03/24 Linda Block MD [address] [facility] [address] [place] [address] [place] Development Officer CLINICAL CARDIAC ELECTROPHYSIOLOGY 02/08/17 04/12/23 documented as of this encounter
--- OUTSIDE RECORDS SUMMARY | 2024-09-03 20:46 | XMS_ITS | Encounter Summary ---
Author Organization [facility] Address [facility] [place] [address] [place] [address] Care Team Providers Care Psychiatric Aides Teacher Name Role Phone Piyush Pandey MD Unavailable UnavailMegan Rodriguez MD Primary Care Provider [phone] Sharmila Davis APRN, HOST/HOSTESS RESTAURANT-C Unavailable Linda Block MD Unavailable [phone] Encounter Details Date Type Department Care Team (Late st Contact Info) Description 03/24/2016 Orders Only ROSALES CONVERSION ONE [place], [place] [id number] , Generic Conversion, Social History Tobacco Use [...] st Contact Info) Description 09/25/2024 2:00 PM NEGATIVE CUTTER Appointment [facility] [address] [place] [address] Zayra Powell, LAMP CLEANER STREET LIGHT [address] [place] [address] 10/16/2024 3:30 PM NEGATIVE CUTTER Office Visit [facility] [address] [place] [phone] Brit Gonzáles MD 619 [place] [address] documented as of this encounter Procedures Procedure Name Priority Date/Time Associated Diagnosis Comments LIPID PANEL EXTENDED TIMED 03/24/2016 7:14 AM CDT documented in this encounter Results * (ABNORMAL) LIPID PANEL EXTENDED (03/24/2016 7:14 AM CDT) HDL 66 >39 MG/DL 03/24/2016 7:58 AM CDT [facility] Comment:DESIRABLE: >60 LIPOPROTEIN (A) 87(H) 0 - 30 MG/DL 03/24/2016 7:58 AM CDT [facility] DIRECT LDL 164(H) 0 - 129 MG/DL 03/24/2016 7:58 AM T [facility] Comment:160-189 HIGH CHOLESTEROL 270(H) 0 - 200 MG/DL 03/24/2016 7:58 AM CDT [facility] Comment:HIGH: > OR = 240 TRIGLYCERIDES 219(H) 0 - 149 MG/DL 03/24/2016 7:58 AM CDT [facility] Comment:200-499 HIGH VLDL CALCULATION 40 MG/DL 03/24/20 16 7:58 AM T [facility] CHOL/HDL RATIO 4.1 03/24/2016 7:58 AM CDT [facility] LDL/HDL 2.5 03/24/2016 7:58 AM T [facility] APOLIPOPROTEIN B 132 54 - 163 MG/DL 03/24/2016 7:58 AM CDT [facility] NON HDL CHOLESTEROL 204 MG/DL 03/24/2016 7:58 AM T [facility] HOMOCYSTEINE (U) 14 MCMOL/L 03/24/20 16 6:51 PM T [facility] HOMOCYSTINE NORMALS NORMAL LEVEL IS LESS THAN OR EQUAL TO 9 03/24/2016 12:02 AM T [facility] Comment: MILD IS 10 TO 15 UMOL/L MODERATE IS 16 TO 30 UMOL/L MODERATE TO SEVERE IS 31 TO 100 UMOL/L SEVERE IS GREATER THAN 100 UMOL/L PLASMA SPECIMEN / Unknown 03/24/2016 7:14 AM CDT 03/24/2016 7:15 AM CDT us Generic Conversion Md [facility] Final R esult [facility] [address] [place] [address], [id number] documented in this encounter Visit Diagnoses Not on filedocumented in this encounter Care Teams Psychiatric Aides Teacher Relationship Specialty Start Date End Date Megan Infante MD [address] [facility] [place] [address] PCP - General FAMILY PRACTICE 04/06/16 Piyush Pandey MD [place] Mechanic CARDIOVASCULAR DISEASE 04/06/16 12/28/23 Sharmila Davis, COMPUTER EDUCATION TEACHER, HOST/HOSTESS RESTAURANT-C [address] [place] [address] [place] [address] NURSE PRACTITIONER 01/04/17 04/03/24 Linda Block MD [address] [facility] [address] [place] [address] [place] Mechanic CLINICAL CARDIAC ELECTROPHYSIOLOGY 02/08/17 04/12/23 documented as of this encounter
--- OUTSIDE RECORDS SUMMARY | 2024-09-03 20:46 | XMS_ITS | Encounter Summary ---
Author Organization [facility] Address [address] [place] [address]. [place] [address] [place] [address] Care Team Providers Care Tool And Die Maker Level Five Name Role Phone Piyush Pandey MD, Amy E MD Primary Care Provider [phone] Encounter Details Date Type Department Care Team (Late st Contact Info) Description 04/07/2016 Orders Only [facility] [address] [place] [phone] Piyush Pandey MD Social History Tobacco [...] st Contact Info) Description 09/25/2024 2:00 PM ACUTE CARE SURGEON Appointment [facility] [address] [place] [address] Zayra Powell, CORPORATE SECURITIES RESEARCH ANALYST [address] [place] [address] 10/16/2024 3:30 PM ACUTE CARE SURGEON Office Visit [facility] [address] [place] [address] Brit Gonzáles MD [address] [place] [address] documented as of this encounter Visit Diagnoses Not on filedocumented in this encounter Care Teams Tool And Die Maker Level Five Relationship Specialty Start Date End Date Megan Infante MD [address] [facility] [place] [address] PCP - General FAMILY PRACTICE 04/06/16 Piyush Pandey MD [place] Plant Protection Officer CARDIOVASCULAR DISEASE 04/06/16 12/28/23 documented as of this encounter
--- OUTSIDE RECORDS SUMMARY | 2024-09-03 20:46 | XMS_ITS | Encounter Summary ---
Author Organization [facility] Address [facility] [address] [place] [address] Care Team Providers Care Supervising Airplane Pilot Name Role Phone Piyush Pandey MD Unavailable UnavailMegan Rodriguez MD Primary Care Provider [phone] Sharmila Davis APRN, ASSOCIATE MERCHANDISER-C Unavailable Linda Block MD Unavailable [phone] Encounter Details Date Type Department Care Team (Late st Contact Info) Description 10/23/2015 Orders Only ROSALES CONVERSION [place], [place] [id number] , Generic Conversion, Social History Tobacco Use [...] st Contact Info) Description 09/25/2024 2:[address] COLLECTIONS OFFICER Appointment [facility] [address] [place] [address] Zayra Powell, DISTRICT MANAGER [address] [place] [address] 10/16/2024 3:[address] COLLECTIONS OFFICER Office Visit [facility] [address] [place] [phone] Brit Gonzáles MD 6[address] [place] [address] documented as of this encounter Procedures Procedure Name Priority Date/Time Associated Diagnosis Comments ACT (HMT OR LHMT) Routine 10/23/2015 3:[address] COLLECTIONS OFFICER documented in this encounter Results * (ABNORMAL) ACT (HMT OR LHMT) (10/23/2015 3:[address] COLLECTIONS OFFICER) ACTIVATED CLOTTING TIME (ACT HMT OR LMT) 257(H) 74 - 137 SEC 10/23/2015 3:[address] COLLECTIONS OFFICER [facility] ORDERS INTERFACE WHOLE BLOOD SPECIMEN / Unknown 10/23/2015 3:[address] COLLECTIONS OFFICER 10/23/2015 3:[address] COLLECTIONS OFFICER us Generic Conversion Md [facility] LAB BLOOD ORDERABLES Fi nal Result Performing Organization Address City/State/[facility] Co de Phone Number [facility] [place] [address], documented in this encounter Visit Diagnoses Not on filedocumented in this encounter Care Teams Supervising Airplane Pilot Relationship Specialty Start Date End Date Megan Infante MD [address] [facility] [place] [address] PCP - General FAMILY PRACTICE 04/06/16 Piyush Pandey MD [place] Elementary Classroom Teacher CARDIOVASCULAR DISEASE 04/06/16 12/28/23 Sharmila Davis APRN, ASSOCIATE MERCHANDISER-C [address] [facility] [address] [place] [address] NURSE PRACTITIONER 01/04/17 04/03/24 Linda Block MD [address] [facility] [address] [place] [address] [place] Elementary Classroom Teacher CLINICAL CARDIAC ELECTROPHYSIOLOGY 02/08/17 04/12/23 documented as of this encounter
--- OUTSIDE RECORDS SUMMARY | 2024-09-03 20:46 | XMS_ITS | Encounter Summary ---
Author Organization [facility] Address [facility]6 [facility] [place] [address] [place] [address] Care Team Providers Care Vice Squad Police Officer Name Role Phone Piyush Pandey MD Unavailable UnavailMegan Rodriguez MD Primary Care Provider [phone] Sharmila Davis APRN, PACKAGER HAND-C Unavailable Linda Block MD Unavailable [phone] Encounter Details Date Type Department Care Team (Late st Contact Info) Description 03/25/2016 Orders Only ROSALES CONVERSION ONE [place], [place] [id number] , Generic Conversion, Social History Tobacco Use [...] st Contact Info) Description 09/25/2024 2:00 PM NEUROCRITICAL CARE PHYSICIAN Appointment [facility] [address] [place] [address] Zayra Powell, AUTO MECHANICS TEACHER [address] [place] [address] 10/16/2024 3:30 PM NEUROCRITICAL CARE PHYSICIAN Office Visit [facility] [address] [place] [address] Brit Gonzáles MD 619 [place] [address] documented as of this encounter Procedures Procedure Name Priority Date/Time Associated Diagnosis Comments POCT GLUCOSE - VALLECILLO DOCKED DEVICE Routine 03/25/2016 7:45 AM CDT documented in this encounter Results * (ABNORMAL) POCT glucose (03/25/2016 7:45 AM CDT) GLUCOSE POC 130(H) 70 - 109 03/25/2016 12:35 PM CDT [facility] LAB ORDERS INTERFACE WHOLE BLOOD SPECIMEN / Unknown 03/25/2016 7:45 AM CDT 03/25/2016 12:35 PM CDT us Generic Conversion Md LANDRY POCT ORDERABLES - DEVIC E Final Result [facility] ORDERS INTERFACE US documented in this encounter Visit Diagnoses Not on filedocumented in this encounter Care Teams Vice Squad Police Officer Relationship Specialty Start Date End Date Megan Infante MD [address] [facility] [place] [address] PCP - General FAMILY PRACTICE 04/06/16 Piyush Pandey MD [place] Auto Seat Cover Installer CARDIOVASCULAR DISEASE 04/06/16 12/28/23 Sharmila Davis, FELT HAT POUNCING OPERATOR HAND, PACKAGER HAND-C [address] [facility] [address] [place] [address] NURSE PRACTITIONER 01/04/17 04/03/24 Linda Block MD 6[address] [facility] [address] [place] [address] [place] Auto Seat Cover Installer CLINICAL CARDIAC ELECTROPHYSIOLOGY 02/08/17 04/12/23 documented as of this encounter
--- OUTSIDE RECORDS SUMMARY | 2024-09-03 20:46 | XMS_ITS | Encounter Summary ---
Author Organization [facility] Address [address] [place] [address]. [place] [address] [place] [address] Care Team Providers Care Maintenance Mechanic Helper Name Role Phone Piyush Pandey MD [facility] Rodriguez MD Primary Care Provider [phone] Encounter Details Date Type Department Care Team (Late st Contact Info) Description 03/26/2016 TRUCK SAFETY INSPECTOR ONLY [facility] 619 [place] [address] Linda Block MD 6[address] [facility] [address] [place] [address] Social History Tobacco Use Types [...] Contact Info) Description 09/25/2024 2:00 PM PROCUREMENT INTERNSHIP Appointment [facility] [address] [place] [address] Zayra Powell, SENIOR RESTAURANT MANAGER [address] [place] [address] 10/16/2024 3:30 PM PROCUREMENT INTERNSHIP Office Visit [facility] [address] [place] [address] Brit Gonzáles MD 619 [place] [address] documented as of this encounter Visit Diagnoses Not on filedocumented in this encounter Care Teams Maintenance Mechanic Helper Relationship Specialty Start Date End Date Megan Infante MD [address] [facility] [place] [address] PCP - General FAMILY PRACTICE 04/06/16 Piyush Pandey MD [place] Screw Machine Tool Setter CARDIOVASCULAR DISEASE 04/06/16 12/28/23 documented as of this encounter
--- OUTSIDE RECORDS SUMMARY | 2024-09-03 20:46 | XMS_ITS | Encounter Summary ---
Author Organization [facility] Address Critical access hospital6 [place] [address] [place] [address] Care Team Providers Care Clerk Television Production Name Role Phone Piyush Pandey MD Unavailable UnavailMegan Rodriguez MD Primary Care Provider [phone] Sharmila Davis APRN, RESIDENTIAL ENERGY AUDITOR-C Unavailable Linda Block MD Unavailable [phone] Encounter Details Date Type Department Care Team (Late st Contact Info) Description 10/23/2015 Orders Only ROSALES CONVERSION ONE [place], [place] [id number] , Generic Conversion, Social History Tobacco Use [...] st Contact Info) Description 09/25/2024 2:00 PM SLD INCLUSION TEACHER Appointment [facility] [address] [place] [address] Zayra Powell, ONLINE USER EXPERIENCE STRATEGIST [address] [place] [address] 10/16/2024 3:30 PM SLD INCLUSION TEACHER Office Visit [facility] [address] [place] [phone] Brit Gonzáles MD 619 [place] [address] documented as of this encounter Procedures Procedure Name Priority Date/Time Associated Diagnosis Comments POCT GLUCOSE - VALLECILLO DOCKED DEVICE Routine 10/23/2015 5:24 PM SLD INCLUSION TEACHER documented in this encounter Results * POCT glucose (10/23/2015 5:24 PM SLD INCLUSION TEACHER) [facility] Signature GLUCOSE POC 103 70 - 109 10/23/2015 5:29 PM SLD INCLUSION TEACHER [facility] LAB ORDERS INTERFACE WHOLE BLOOD SPECIMEN / Unknown 10/23/2015 5:24 PM SLD INCLUSION TEACHER 10/23/2015 5:29 PM SLD INCLUSION TEACHER us Generic Conversion Md LANDRY POCT ORDERABLES - DEVIC E Final Result [facility] [place] [address], documented in this encounter Visit Diagnoses Not on filedocumented in this encounter Care Teams Clerk Television Production Relationship Specialty Start Date End Date Megan Infante MD [address] [place] [address] PCP - General FAMILY PRACTICE 04/06/16 Piyush Pandey MD [place] Intensive Care Nurse CARDIOVASCULAR DISEASE 04/06/16 12/28/23 Sharmila Davis, TIMBER SIZER OPERATOR, RESIDENTIAL ENERGY AUDITOR-C [address] [facility] [address] [place] [address] NURSE PRACTITIONER 01/04/17 04/03/24 Linda Block MD [address] [facility] [address] [place] [address] [place] Intensive Care Nurse CLINICAL CARDIAC ELECTROPHYSIOLOGY 02/08/17 04/12/23 documented as of this encounter
--- OUTSIDE RECORDS SUMMARY | 2024-09-03 20:46 | XMS_ITS | Encounter Summary ---
Author Organization [facility] Address [facility]6 [facility] [place] [address] [place] [address] Care Team Providers Care Lsat Instructor Name Role Phone Piyush Pandey MD Unavailable UnavailMegan Rodriguez MD Primary Care Provider [phone] Sharmila Davis APRN, SIDE TRIMMER-C Unavailable Linda Block MD Unavailable [phone] Encounter Details Date Type Department Care Team (Late st Contact Info) Description 03/23/2016 Orders Only ROSALES CONVERSION [place], [place] [id number] , Generic Conversion, Social History Tobacco Use [...] Contact Info) Description 09/25/2024 2:00 PM BANQUET CAPTAIN Appointment [facility] [address] [place] [address] Zayra Powell, CHIEF SERVICE OBSERVER [address] [place] [address] 10/16/2024 3:30 PM BANQUET CAPTAIN Office Visit [facility] [address] [place] [phone] Brit Gonzáles MD 619 [place] [address] documented as of this encounter Procedures Procedure Name Priority Date/Time Associated Diagnosis Comments MAGNESIUM NOW 03/23/2016 3:41 PM CDT documented in this encounter Results * MAGNESIUM (03/23/2016 3:41 PM CDT) MAGNESIUM 2.1 1.6 - 2.6 MG/DL 03/23/2016 4:19 PM CDT [facility] SERUM OR PLASMA SPECIMEN / Unknown 03/23/2016 3:41 PM CDT 03/23/2016 3:50 PM CDT us Generic Conversion Md LANDRY LABORATORY Final R esult [facility] [address] [place] [address], [id number] documented in this encounter Visit Diagnoses Not on filedocumented in this encounter Care Teams Lsat Instructor Relationship Specialty Start Date End Date Megan Infante MD [address] [facility] [place] [address] PCP - General FAMILY PRACTICE 04/06/16 Piyush Pandey MD [place] Defective Cigarette Slitter CARDIOVASCULAR DISEASE 04/06/16 12/28/23 Sharmila Davis APRN, SIDE TRIMMER-C [address] [facility] [address] [place] [address] NURSE PRACTITIONER 01/04/17 04/03/24 Linda Block MD [address] [facility] [address] [place] [address] [place] Defective Cigarette Slitter CLINICAL CARDIAC ELECTROPHYSIOLOGY 02/08/17 04/12/23 documented as of this encounter
--- OUTSIDE RECORDS SUMMARY | 2024-09-03 20:46 | XMS_ITS | Encounter Summary ---
Author Organization [facility] Address [address] [place] [address]. [place] [address] [place] [address] Care Team Providers Care Online Marketing Strategist Name Role Phone Piyush Pandey MD [facility] MD Primary Care Provider [phone] Encounter Details Date Type Department Care Team (Late st Contact Info) Description 03/23/2016 COMPUTER DRAFTER ONLY [facility] 619 [place] [address] Julia Maurer PA-C [address] [facility] [address] [place] [address] Social History Tobacco Use Types [...] Description 09/25/2024 2:00 PM PHARMACY SCHEDULER Appointment [facility] [address] [place] [address] Zayra Powell, LEAD CYTOGENETIC TECHNOLOGIST [address] [place] [address] 10/16/2024 3:30 PM PHARMACY SCHEDULER Office Visit [facility] [address] [place] [phone] Brit Gonzáles MD 619 [place] [address] documented as of this encounter Visit Diagnoses Not on filedocumented in this encounter Care Teams Online Marketing Strategist Relationship Specialty Start Date End Date Megan Infante MD [address] [facility] [place] [address] PCP - General FAMILY PRACTICE 04/06/16 Piyush Pandey MD [place] Sales Representative Adding Machines CARDIOVASCULAR DISEASE 04/06/16 12/28/23 documented as of this encounter
--- OUTSIDE RECORDS SUMMARY | 2024-09-03 20:46 | XMS_ITS | Encounter Summary ---
Author Organization [facility] Address [facility]6 [facility] [place] [address] [place] [address] Care Team Providers Care Electric Serviceman Name Role Phone Piyush Pandey MD Unavailable UnavailMegan Rodriguez MD Primary Care Provider [phone] Sharmila Davis APRN, BODY MAN-C Unavailable Linda Block MD Unavailable [phone] Encounter Details Date Type Department Care Team (Late st Contact Info) Description 03/23/2016 Orders Only ROSALES CONVERSION ONE [place], [place] [id number] , Generic Conversion, Social History Tobacco Use [...] st Contact Info) Description 09/25/2024 2:00 PM JAILER CHIEF Appointment [facility] [address] [place] [address] Zayra Powell, TANKAGE GRINDER [address] [place] [address] 10/16/2024 3:30 PM JAILER CHIEF Office Visit [facility] [address] [place] [address] Brit Gonzáles MD 619 [place] [address] documented as of this encounter Procedures Procedure Name Priority Date/Time Associated Diagnosis Comments TROPONIN, QUANT STAT 03/23/2016 3:41 PM CDT documented in this encounter Results * (ABNORMAL) TROPONIN, QUANT (03/23/2016 3:41 PM CDT) TROPONIN I 0.034(H) 0.000 - 0.028 ng/mL. 03/23/2016 4:23 PM CDT [facility] SERUM OR PLASMA SPECIMEN / Unknown 03/23/2016 3:41 PM CDT 03/23/2016 3:50 PM CDT us Generic Conversion Md LANDRY LABORATORY Final R esult [facility] [address] [place] [address], [id number] documented in this encounter Visit Diagnoses Not on filedocumented in this encounter Care Teams Electric Serviceman Relationship Specialty Start Date End Date Megan Infante MD [address] [place] [address] PCP - General FAMILY PRACTICE 04/06/16 Pyiush Pandey MD [place] Deck And Hull Assembler CARDIOVASCULAR DISEASE 04/06/16 12/28/23 Sharmila Davis APRN, BODY MAN-C 619 [facility] 47 [place] [address] NURSE PRACTITIONER 01/04/17 04/03/24 Linda Block MD 619 [facility] 47 [place] [address] [place] Deck And Hull Assembler CLINICAL CARDIAC ELECTROPHYSIOLOGY 02/08/17 04/12/23 documented as of this encounter
--- OUTSIDE RECORDS SUMMARY | 2024-09-03 20:46 | XMS_ITS | Encounter Summary ---
Author Organization [facility] Address [facility] [place] [address] [place] [address] Care Team Providers Care Restaurant Shift Supervisor Name Role Phone Piyush Pandey MD Unavailable UnavailMegan Rodriguez MD Primary Care Provider [phone] Sharmila Davis APRN, MACHINE DYER-C Unavailable [phone] Linda Block MD Unavailable [phone] Encounter Details Date Type Department Care Team (Latest Contact Info) Description 03/23/2016 Abstract [facility] Medical Group Social History Tobacco [...] st Contact Info) Description 09/25/2024 2:00 PM WARD ATTENDANT Appointment [facility] [address] [place] [address] Zayra Powell, SNIPPER [address] [place] [address] 10/16/2024 3:30 PM WARD ATTENDANT Office Visit [facility] [address] [place] [address] Brit Gonzáles MD 619 [place], [place] [phone] documented as of this encounter Procedures Procedure Name Priority Date/Time Associated Diagnosis Comments ECG 12-LEAD Routine 03/23/2016 5:13 PM CDT documented in this encounter Results * ECG 12 lead (03/23/2016 5:13 PM CDT) 03/23/2016 5:13 PM CDT Narrative [facility] - 03/23/2016 6:08 PM CDT ? [facility] ? [address] [place], [place] ??[address] ? Test Date: ?2016-03-23 Pat Name: ? BOIE SIMS ?Department: ?? 1 ? Room: ? 0468A Gender: ? M ?Setter Automatic Spinning Lathe: ?? LUIS F HERRON: ?1955 ? Requested By: JESSICA ROUSSEAU Order Number: [id number] ? Reading MD: ?? Job Vizcarra ? Measurements Intervals ?Blum ? Rate: ? 80 ? P: ? UT: ? 0 ?QRS: ?-16 QRSD: ? 130 ?T: ?145 QT: ? 408 ? QTc: ?472 ? Interpretive Statements ATRIAL FLUTTER/TACHYCARDIA MODERATE INTRAVENTRICULAR CONDUCTION DELAY ST DEVIATION AND MODERATE T-WAVE ABNORMALITY, CONSIDER LATERAL ISCHEMIA Procedure Note Eun Landry MD - 04/18/2019 [place] [address] [place] [address] Test Date: 2016-03-23 Pat Name: OBIE SIMS Department: 1 Room: 0468A Gender: M Setter Automatic Spinning Lathe: LUIS F PERAZA : 1955 Requested By: JESSICA ROUSSEAU Order Number: [id number] Reading MD: Job Vizcarra Measurements Intervals Blum Rate: 80 P: UT: 0 QRS: -16 QRSD: 130 T: 145 QT: 408 QTc: 472 Interpretive Statements ATRIAL FLUTTER/TACHYCARDIA MODERATE INTRAVENTRICULAR CONDUCTION DELAY ST DEVIATION AND MODERATE T-WAVE ABNORMALITY, CONSIDER LATERAL ISCHEMIA us Generic Conversion Md LANDRY ECG ORDERABLES Final R esult [facility] documented in this encounter Visit Diagnoses Not on filedocumented in this encounter Care Teams Restaurant Shift Supervisor Relationship Specialty Start Date End Date Megan Infante MD [address] [facility] [place] [address] PCP - General FAMILY PRACTICE 04/06/16 Piyush Pandey MD [place] Manufacturing Automation Engineer CARDIOVASCULAR DISEASE 04/06/16 12/28/23 Sharmila Davis, CLINICAL TECHNICIAN, MACHINE DYER-C [address] [facility] [address] [place] [address] NURSE PRACTITIONER 01/04/17 04/03/24 Linda Block MD 619 [facility] [address] [place] [address] [place] Manufacturing Automation Engineer CLINICAL CARDIAC ELECTROPHYSIOLOGY 02/08/17 04/12/23 documented as of this encounter
--- OUTSIDE RECORDS SUMMARY | 2024-09-03 20:47 | XMS_ITS | Encounter Summary ---
Author Organization [facility] Address [facility]6 [facility] [place] [address] [place] [address] Care Team Providers Care Electro Optical Engineer Name Role Phone Piyush Pandey MD Unavailable UnavailMegan Rodriguez MD Primary Care Provider [phone] Sharmila Davis APRN DOOR CAPTAIN-C Unavailable Linda Block MD Unavailable [phone] Encounter Details Date Type Department Care Team (Latest Contact Info) Description 03/02/2014 Abstract [facility] Medical Group Shubham Callahan MD [address] [place] [id number] Social History Tobacco Use Types Packs/Day Years [...] Referring Provider Referring Provider: Dr. Matias Pandey (bag repairer) Assessment Assessed 1. Former smoker (V15.82) (Z87.891) [...] CT scan of the chest done at [facility]. There was no suspicious pulmonary nodule. There [...] Tablet; TAKE 1 TABLET AT BEDTIME; Therapy: (Recorded:[id number]) to Recorded Allergies Medication 1. No Known Drug Allergies Vitals Vital Signs [Data Includes: Current Encounter] Recorded by : Millicent Ferguson at [id number] 11:54AM Systolic 180 Diastolic 90 Height 5 [...] Shubham Callahan M.D.; Mar 05 2014 3:09PM GROUP MANAGING DIRECTOR (Author) documented in this encounter Plan of Treatment Upcoming Encounters Date Type Department Care Team (Late st Contact Info) Description 09/25/2024 2:00 PM GROUP MANAGING DIRECTOR Appointment [facility] [address] [place] [address] Zayra Powell, FINANCIAL SERVICES AUDITOR [address] [place] [address] 10/16/2024 3:30 PM GROUP MANAGING DIRECTOR [facility] [address] [place] [address] Brit Gonzáles MD 619 [place] [address] documented as of this encounter Visit Diagnoses Not on filedocumented in this encounter Care Teams Electro Optical Engineer Relationship Specialty Start Date End Date Megan Infante MD [address] [place] [address] PCP - General FAMILY PRACTICE 04/06/16 Piyush Pandey MD [place] Coverstitch Binder CARDIOVASCULAR DISEASE 04/06/16 12/28/23 Sharmila Davis, METROLOGIST, DOOR CAPTAIN-C [address] [facility] [address] [place] [address] NURSE PRACTITIONER 01/04/17 04/03/24 Linda Block MD [address] [facility] [address] [place] [address] [place] Coverstitch Binder CLINICAL CARDIAC ELECTROPHYSIOLOGY 02/08/17 04/12/23 documented as of this encounter
--- OUTSIDE RECORDS SUMMARY | 2024-09-03 20:47 | XMS_ITS | Encounter Summary ---
Author Organization [facility] Address [facility]6 [facility] [place] [address] [place] [address] Care Team Providers Care Chemical Analytical Sampler Name Role Phone Piyush Pandey MD Unavailable Unavailabl e Megan Infante MD Primary Care Provider [phone] Sharmila Davis APRN, SUPPORT COORDINATOR-C Unavailable Linda Block MD Unavailable [phone] Encounter Details Date Type Department Care Team (Late st Contact Info) Description 10/21/[address] [facility] [address] [place] [address] Linda Block MD [address] [facility] [address] [place] [address] Social History Tobacco Use Types Packs/Day Years [...] st Contact Info) Description 09/25/2024 2:[address] [facility] [address] [place] [address] Zayra Powell, CRYPTOLOGIC TECHNICIAN TECHNICAL [address] [place] [address] 10/16/2024 3:30 PM GIMP TACKER [facility] [address] [facility] [place] [address] Brit Gonzáles MD [address]19 [place] [address] documented as of this encounter Visit Diagnoses Diagnosis Chronic atrial fibrillation (CMS/HCC HHS/HCC) Atrial fibrillation documented in this encounter Care Teams Chemical Analytical Sampler Relationship Specialty Start Date End Date Megan Infante MD [address] [place] [address] PCP - General FAMILY PRACTICE 04/06/16 Piyush Pandey MD [place] Marketing Account Manager CARDIOVASCULAR DISEASE 04/06/16 12/28/23 Sharmila Davis, SEAMAN, SUPPORT COORDINATOR-C [address] [facility] [address] [place] [address] NURSE PRACTITIONER 01/04/17 04/03/24 Linda Block MD 619 [facility] [address] [place] [address] [place] Marketing Account Manager CLINICAL CARDIAC ELECTROPHYSIOLOGY 02/08/17 04/12/23 documented as of this encounter
--- OUTSIDE RECORDS SUMMARY | 2024-09-03 20:47 | XMS_ITS | Encounter Summary ---
Author Organization [facility] Address [address] [place] [address]. [place] [address] [place] [address] Care Team Providers Care Grab Setter Name Role Phone Piyush Pandey MD, Amy E MD Primary Care Provider [phone] Encounter Details Date Type Department Care Team (Late st Contact Info) Description 08/22/2012 Scan [place] [facility] AT [address] [address] Eun Tovar MD Social History [...] Contact Info) Description 09/25/2024 2:00 PM OPERATIONS SUPPORT COORDINATOR Appointment [facility] [address] [place] [address] Zayra Powell, ATTENDING UROLOGIST [address] [place] [address] 10/16/2024 3:30 PM OPERATIONS SUPPORT COORDINATOR Office Visit [facility] [address] [place] [phone] Brit Gonzáles MD [address] [place] [address] documented as of this encounter Visit Diagnoses Not on filedocumented in this encounter Care Teams Grab Setter Relationship Specialty Start Date End Date Megan Infante MD [address] [facility] [place] [address] PCP - General FAMILY PRACTICE 04/06/16 Piyush Pandey MD [place] Boat Master CARDIOVASCULAR DISEASE 04/06/16 12/28/23 documented as of this encounter
--- OUTSIDE RECORDS SUMMARY | 2024-09-03 20:47 | XMS_ITS | Encounter Summary ---
Author Organization [facility] Address [address] [place] [address]. [address] Care Team Providers Care Head Of Geography Name Role Phone Piyush Pandey MD Unavailable UnavailMegan Rodriguez MD Primary Care Provider [phone] Sharmila Davis APRN, INSPECTOR OPEN DIE-C Unavailable Linda Block MD Unavailable [phone] Encounter Details Date Type Department Care Team (Late st Contact Info) Description 02/02/[address] [facility] [address] [place] [address] Matias Mac MD [address] [place] [address] Social History Tobacco Use Types Packs/Day Years [...] Contact Info) Description 09/25/2024 2:[address] [facility] [address] [place] [address] Zayra Powell, INFORMATION TECHNOLOGY COORDINATOR [address] [place] [address] 10/16/2024 3:30 PM TILE MASON Office Visit [facility] [address] [place] [address] Brit Gonzáles MD 619 [place] [address] documented as of this encounter Visit Diagnoses Diagnosis Other symptoms involving cardiovascular system documented in this encounter Care Teams Head Of Geography Relationship Specialty Start Date End Date Megan Infante MD [address] [place] [address] PCP - General FAMILY PRACTICE 04/06/16 Piyush Pandey MD [place] Sewer Line Photo Inspector CARDIOVASCULAR DISEASE 04/06/16 12/28/23 Sharmila Davis, MANAGER ACUTE, INSPECTOR OPEN DIE-C 619 [facility] [address] [place] [address] NURSE PRACTITIONER 01/04/17 04/03/24 Linda Block MD [address] [facility] [address] [place] [address] [place] Sewer Line Photo Inspector CLINICAL CARDIAC ELECTROPHYSIOLOGY 02/08/17 04/12/23 documented as of this encounter
--- OUTSIDE RECORDS SUMMARY | 2024-09-03 20:47 | XMS_ITS | Encounter Summary ---
Author Organization [facility] Address [address] [place] [address]. [place] [address] [place] [address] Care Team Providers Care Online Project Manager Name Role Phone Unavailable Primary Care Provider Unavailabl e Encounter Details Date Type Department Care Team (Late st Contact Info) Description 10/02/2015 Scan [facility] [address] [place] [address] Eun Tovar MD Social History [...] st Contact Info) Description 09/25/2024 2:00 PM BOBBIN WINDER TENDER Appointment [facility] [address] [place] [address] Zayra Powell, LIFE SCIENTISTS [address] [place] [address] 10/16/2024 3:30 PM BOBBIN WINDER TENDER Office Visit [facility] [address] [phone] Brit Gonzáles MD [address] [place] [address] documented as of this encounter Visit Diagnoses Not on filedocumented in this encounter
--- OUTSIDE RECORDS SUMMARY | 2024-09-03 20:47 | XMS_ITS | Encounter Summary ---
Author Organization [facility] Address [address] [place] [address]. [place] [address] [place] [address] Care Team Providers Care Rn Staff Name Role Phone Unavailable Primary Care Provider Unavailabl e Encounter Details Date Type Department Care Team (Late st Contact Info) Description 04/17/2012 Abstract [facility] AT [facility] [address] [place] [address] Eun Landry MD Social History [...] st Contact Info) Description 09/25/2024 2:[address] SQL DEVELOPER Appointment [facility] [address] [place] [address] Zayra Powell, HARNESS CLEANER [address] [place] [id number] 10/16/2024 3:[address] SQL DEVELOPER Office Visit [facility] [address] [place] [phone] Brit Gonzáles MD [address] [place] [address] documented as of this encounter Procedures Procedure Name Priority Date/Time Associated Diagnosis Comments ECG 12-LEAD Routine 04/17/2012 8:26 AM CDT documented in this encounter Results * ECG 12 lead (04/17/2012 8:26 AM CDT) 04/17/2012 8:26 AM CDT Narrative [facility] - 04/17/2012 1:26 PM CDT ? [facility] ? [address], [place] ??[address] ? Test Date: ?2012-04-17 Pat Name: ? OBIE SIMS ?Department: ?? 1 ? Room: ? 0404AA Gender: ? M ?Pollution Control Technician: ?? MIRLANDE HERRON: ?1955 ? Requested By: MARLEE VEGA Order Number: [id number] ?Reading MD: ?? Piyush Pandey ? Measurements Intervals ?[place] ? Rate: ? 59 ? P: ?26 NM: ? 194 ?QRS: ?-21 QRSD: ? 104 ?T: ?98 QT: ? 446 ? QTc: ?441 ? Interpretive Statements Sinus bradycardia with probable ventricular complex Left ventricular hypertrophy with QRS widening and repolarization abnormality Procedure Note , Generic ConversionMD - 04/19/2019 [place] [address] [place] [address] Test Date: 2012-04-17 Pat Name: OBIE SIMS Department: 1 Room: [facility]40[facility] Gender: M Pollution Control Technician: MIRLANDE : 1955 Requested By: MARLEE VEGA Order Number: [id number] Reading MD: Piyush Pandey Measurements Intervals [place] Rate: 59 P: 26 NM: 194 QRS: -21 QRSD: 104 T: 98 QT: 446 QTc: 441 Interpretive Statements Sinus bradycardia with probable ventricular complex Left ventricular hypertrophy with QRS widening and repolarizationabnormality us Generic Conversion Md LANDRY ECG ORDERABLES Final R esult [facility] documented in this encounter Visit Diagnoses Not on filedocumented in this encounter
--- OUTSIDE RECORDS SUMMARY | 2024-09-03 20:47 | XMS_ITS | Encounter Summary ---
Author Organization [facility] Address [facility] [place] [place] [address] [place] [address] Care Team Providers Care Cell Pourer Name Role Phone Piyush Pandey MD Unavailable UnavailMegan Rodriguez MD Primary Care Provider [phone] Sharmila Davis APRN, DINING CAR CONDUCTOR-C Unavailable Linda Block MD Unavailable [phone] Encounter Details Date Type Department Care Team (Latest Contact Info) Description 10/13/2013 Abstract [facility] Shubham Callahan MD [address] [place] [address] Social History Tobacco Use Types Packs/Day Years [...] st Contact Info) Description 09/25/2024 2:00 PM TRACTOR SWEEPER DRIVER Appointment [facility] [address] [place] [address] Zayra Powell FNP [address] [place] [address] 10/16/2024 3:30 PM TRACTOR SWEEPER DRIVER Office Visit [facility] [address] [place] [address] Brit Gonzáles MD [address] [place] [address] documented as of this encounter Visit Diagnoses Not on filedocumented in this encounter Care Teams Cell Pourer Relationship Specialty Start Date End Date Megan Infante MD [address] [facility] [place] [address] PCP - General FAMILY PRACTICE 04/06/16 Piyush Pandey MD [place] Chief Controller CARDIOVASCULAR DISEASE 04/06/16 12/28/23 Sharmila Davis APRN, DINING CAR CONDUCTOR-C [address] [facility] [address] [place] [phone] NURSE PRACTITIONER 01/04/17 04/03/24 Linda Block MD [address] [facility] [address] [phone] [place] Chief Controller CLINICAL CARDIAC ELECTROPHYSIOLOGY 02/08/17 04/12/23 documented as of this encounter
--- OUTSIDE RECORDS SUMMARY | 2024-09-03 20:47 | XMS_ITS | Encounter Summary ---
Author Organization [facility] Address [address] [place] [address]. [place] [address] [place] [address] Care Team Providers Care Video Rental Clerk Name Role Phone Unavailable Primary Care Provider Unavailabl e Encounter Details Date Type Department Care Team (Late st Contact Info) Description 07/05/2014 Abstract [facility] AT [address] [address] Eun Tovar MD Social History [...] Contact Info) Description 09/25/2024 2:00 PM HAND PICKER Appointment [facility] [address] [place] [address] Zayra Powell, GAS FLOW REGULATOR [address] [place] [address] 10/16/2024 3:30 PM HAND PICKER Office Visit [facility] [address] [phone] Brit Gonzáles MD [address] [place] [address] documented as of this encounter Visit Diagnoses Not on filedocumented in this encounter
--- OUTSIDE RECORDS SUMMARY | 2024-09-03 20:47 | XMS_ITS | Encounter Summary ---
Author Organization [facility] Address [address] [place] [address]. [place] [address] [place] [address] Care Team Providers Care Sludge Control Operator Name Role Phone Unavailable Primary Care Provider Unavailabl e Encounter Details Date Type Department Care Team (Late st Contact Info) Description 10/21/2015 Abstract [facility] [address] [place] [address] Eun Landry MD Social History [...] st Contact Info) Description 09/25/2024 2:00 PM DOOR TO DOOR SALESMAN Appointment [facility] [address] [place] [address] Zayra Powell, LACE ROLLER OPERATOR [address] [place] [address] 10/16/2024 3:30 PM DOOR TO DOOR SALESMAN Office Visit [facility] [address] [phone] Brit Gonzáles MD [address] [place] [address] documented as of this encounter Procedures Procedure Name Priority Date/Time Associated Diagnosis Comments CBC,CONVERSION Routine 10/21/2015 12:48 PM DOOR TO DOOR SALESMAN BASIC METABOLIC PANEL Routine 10/21/2015 12:48 PM DOOR TO DOOR SALESMAN MAGNESIUM Routine 10/21/2015 12:48 PM DOOR TO DOOR SALESMAN documented in this encounter Results * MAGNESIUM (10/21/2015 12:48 PM DOOR TO DOOR SALESMAN) MAGNESIUM 2.1 1.6 - 2.6 MG/DL MEDINFORMATIX TO EPIC CONVERSION 10/21/2015 12:4 8 PM DOOR TO DOOR SALESMAN 10/21/2015 12:48 PM DOOR TO DOOR SALESMAN Narrative MEDINFORMATIX TO EPIC CONVERSION - 10/21/2015 1:38 PM DOOR TO DOOR SALESMAN Reviewed by DEMETRIS Oct 21 2015 ??2:20:10:000PM us Generic Conversion Md [facility] Final R esult MEDINFORMATIX TO EPIC CONVERSION * (ABNORMAL) BASIC METABOLIC PANEL (10/21/2015 12:48 PM DOOR TO DOOR SALESMAN) SODIUM S/P/B 139 135 - 147 MMOL/L [...] O EPIC CONVERSION 10/21/2015 12:4 8 PM DOOR TO DOOR SALESMAN 10/21/2015 12:48 PM DOOR TO DOOR SALESMAN Narrative MEDINFORMATIX TO EPIC CONVERSION - 10/21/2015 1:38 PM DOOR TO DOOR SALESMAN Reviewed by DEMETRIS Oct 21 2015 ??2:20:10:000PM us Generic Conversion Md [facility] Final R esult MEDINFORMATIX TO EPIC CONVERSION * (ABNORMAL) CBC,CONVERSION (10/21/2015 12:48 PM DOOR TO DOOR SALESMAN) WBC 8.2 4.0 - 10.8 x10'3/uL MEDINFORMATIX [...] TO EPIC CONVERSION 10/21/2015 12:4 8 PM DOOR TO DOOR SALESMAN 10/21/2015 12:48 PM DOOR TO DOOR SALESMAN Narrative MEDINFORMATIX TO EPIC CONVERSION - 10/21/2015 1:02 PM DOOR TO DOOR SALESMAN Reviewed by DEMETRIS Oct 21 2015 ??4:39:32:000PM us Generic Conversion Md [facility] Final R esult MEDINFORMATIX TO EPIC CONVERSION documented in this encounter Visit Diagnoses Not on filedocumented in this encounter
--- OUTSIDE RECORDS SUMMARY | 2024-09-03 20:47 | XMS_ITS | Encounter Summary ---
Author Organization [facility] Address [address] [place] [address]. [place] [address] [place] [address] Care Team Providers Care Pilot Plant Operator Helper Name Role Phone Unavailable Primary Care Provider Unavailabl e Encounter Details Date Type Department Care Team (Late st Contact Info) Description 11/05/2014 Scan [facility] [address] [place] [address] Eun Tovar MD Social History [...] st Contact Info) Description 09/25/2024 2:00 PM COLLISION ESTIMATOR Appointment [facility] [address] [place] [address] Zayra Powell, PLANTING SUPERVISOR [address] [place] [address] 10/16/2024 3:30 PM COLLISION ESTIMATOR Office Visit [facility] [address] [phone] Brit Gonzáles MD [address] [place] [address] documented as of this encounter Visit Diagnoses Not on filedocumented in this encounter
--- OUTSIDE RECORDS SUMMARY | 2024-09-03 20:47 | XMS_ITS | Encounter Summary ---
Author Organization [facility] Address On license of [facility] [place] [address] [place] [address] Care Team Providers Care Refuge Manager Name Role Phone Piyush Pandey MD Unavailable Unavailabl Megan Leos MD Primary Care Provider [phone] Sharmila Davis APRN, IMPORT/EXPORT AGENT-C Unavailable Linda Block MD Unavailable [phone] Encounter Details Date Type Department Care Team (Late st Contact Info) Description 10/21/[address] [facility] [address] [place] [address] Linda Block MD [address] [facility] [place] [address] [place] [phone] Social History Tobacco Use Types Packs/Day Years [...] Contact Info) Description 09/25/2024 2:00 PM ELECTRONICS COMPUTER MECHANIC Appointment [facility] [address] [place] [address] Zayra Powell, MICROSTRATEGY BI DEVELOPER [address] [place] [address] 10/16/2024 3:30 PM ELECTRONICS COMPUTER MECHANIC [facility] [address] [facility] [place] [phone] Brit Gonzáles MD [address] [place] [address] documented as of this encounter Visit Diagnoses Diagnosis Atrial fibrillation (CMS/HCC HHS/HCC) Atrial fibrillation documented in this encounter Care Teams Refuge Manager Relationship Specialty Start Date End Date Megan Infante MD [address] [place] [phone] PCP - General FAMILY PRACTICE 04/06/16 Piyush Pandey MD [place] Last Putter Away CARDIOVASCULAR DISEASE 04/06/16 12/28/23 Sharmila Davis, CRANE SERVICE TECHNICIAN, IMPORT/EXPORT AGENT-C 6[address] [facility] [address] [place] [address] NURSE PRACTITIONER 01/04/17 04/03/24 Linda Block MD [address] [facility] [address] [place] [address] [place] Last Putter Away CLINICAL CARDIAC ELECTROPHYSIOLOGY 02/08/17 04/12/23 documented as of this encounter
--- OUTSIDE RECORDS SUMMARY | 2024-09-03 20:47 | XMS_ITS | Encounter Summary ---
Author Organization [facility] Address [address] [place] [address]. [place] [address] [place] [address] Care Team Providers Care Composite Boat Builder Name Role Phone Unavailable Primary Care Provider Unavailabl e Encounter Details Date Type Department Care Team (Late st Contact Info) Description 03/16/2013 Abstract [facility] AT [address] [address] Eun Tovar MD Social History [...] st Contact Info) Description 09/25/2024 2:00 PM SAFETY ASSOCIATE Appointment [facility] [address] [place] [address] Zayra Powell, SENIOR ACCOUNT CLERK [address] [place] [address] 10/16/2024 3:30 PM SAFETY ASSOCIATE Office Visit [facility] [address] [phone] Brit Gonzáles MD [address] [place] [address] documented as of this encounter Visit Diagnoses Not on filedocumented in this encounter
--- OUTSIDE RECORDS SUMMARY | 2024-09-03 20:47 | XMS_ITS | Encounter Summary ---
Author Organization [facility] Address [facility] [address] [place] [address] Care Team Providers Care Square Cutter Name Role Phone Piyush Pandey MD Unavailable Unavailabl e Megan Infante MD Primary Care Provider [phone] Sharmila Davis APRN, COAT EXAMINER-C Unavailable Linda Block MD Unavailable [phone] Encounter Details Date Type Department Care Team (Late st Contact Info) Description 10/23/2015 Abstract [facility] Water Taxi Operator [address] [place] [address] Linda Block MD [address] [facility] [address] [place] [phone] Social History Tobacco Use Types Packs/Day Years [...] st Contact Info) Description 09/25/2024 2:00 PM DRAMA TEACHER Appointment [facility] [address] [place] [address] Zayra Powell, SURVEILLANCE SENSOR OPERATOR [address] [place] [address] 10/16/2024 3:30 PM DRAMA TEACHER [facility] [address] [facility] [place] [phone] Brit Gonzáles MD [address]19 [place] [address] documented as of this encounter Visit Diagnoses Diagnosis Chronic atrial fibrillation ([facility]/HCC HHS/HCC) Atrial fibrillation documented in this encounter Care Teams Square Cutter Relationship Specialty Start Date End Date Megan Infante MD [address] [place] [phone] PCP - General FAMILY PRACTICE 04/06/16 Piyush Pandey MD [place] Floor Hand CARDIOVASCULAR DISEASE 04/06/16 12/28/23 Sharmila Davis APRN, COAT EXAMINER-C [address] [facility] [address] [place] [address] NURSE PRACTITIONER 01/04/17 04/03/24 Linda Block MD 6[address] [facility] [address] [place] [address] [place] Floor Hand CLINICAL CARDIAC ELECTROPHYSIOLOGY 02/08/17 04/12/23 documented as of this encounter
--- OUTSIDE RECORDS SUMMARY | 2024-09-03 20:47 | XMS_ITS | Encounter Summary ---
Author Organization [facility] Address [address] [place] [address]. [place] [address] [place] [address] Care Team Providers Care Slag Mixer Name Role Phone Unavailable Primary Care Provider Unavailabl e Encounter Details Date Type Department Care Team (Late st Contact Info) Description 11/30/2013 Scan [facility] [address] [place] [address] Eun Tovar MD Social History [...] st Contact Info) Description 09/25/2024 2:00 PM RETURNER Appointment [facility] [address] [place] [address] Zayra Powell, GLAZE HANDLER [address] [place] [address] 10/16/2024 3:30 PM RETURNER Office Visit [facility] [address] [phone] Brit Gonzáles MD [address] [place] [address] documented as of this encounter Visit Diagnoses Not on filedocumented in this encounter
--- OUTSIDE RECORDS SUMMARY | 2024-09-03 20:47 | XMS_ITS | Encounter Summary ---
Author Organization [facility] Address [address] [place] [address]. [place] [address] [place] [address] Care Team Providers Care Incident Handler Name Role Phone Unavailable Primary Care Provider Unavailabl e Encounter Details Date Type Department Care Team (Late st Contact Info) Description 08/22/2012 Abstract [facility] [address] [place] [address] Eun Landry MD Social History [...] st Contact Info) Description 09/25/2024 2:00 PM SOAKER HELPER Appointment [facility] [address] [place] [address] Zayra Powell, CLINICAL DIRECTOR [address] [place] [address] 10/16/2024 3:30 PM SOAKER HELPER Office Visit [facility] [address] [phone] Brit Gonzáles MD 6[address] [place] [address] documented as of this encounter Procedures Procedure Name Priority Date/Time Associated Diagnosis Comments EXTERNAL EJECTION FRACTION Routine 08/22/2012 12:00 AM SOAKER HELPER documented in this encounter Results * EXTERNAL EJECTION FRACTION (08/22/2012 12:00 AM SOAKER HELPER) EJECTION FRACTION 57 [facility] Anatomical Region Laterality Modality Other 08/22/2012 08/22/2012 Narrative 08/22/2012 12:00 AM SOAKER HELPER Cardiolite stress test, Piyush Pandey M.D. us Generic Conversion Md [facility] OTHER Final R esult documented in this encounter Visit Diagnoses Not on filedocumented in this encounter
--- OUTSIDE RECORDS SUMMARY | 2024-09-03 20:47 | XMS_ITS | Encounter Summary ---
Author Organization [facility] Address [address] [place] [address]. [place] [address] [place] [address] Care Team Providers Care Bicycle Taxi Driver Name Role Phone Unavailable Primary Care Provider Unavailabl e Encounter Details Date Type Department Care Team (Late st Contact Info) Description 08/09/2015 Abstract [facility] [address] [place] [address] Eun Landry MD Social History [...] st Contact Info) Description 09/25/2024 2:00 PM SPRING WINDER Appointment [facility] [address] [place] [address] Zayra Powell, ADULT EDUCATOR [address] [place] [address] 10/16/2024 3:30 PM SPRING WINDER Office Visit [facility] [address] [phone] Brit Gonzáles MD [address]19 [place] [address] documented as of this encounter Procedures Procedure Name Priority Date/Time Associated Diagnosis Comments ECG 12-LEAD Routine 08/09/2015 6:58 AM SPRING WINDER documented in this encounter Results * ECG 12 lead (08/09/2015 6:58 AM SPRING WINDER) 08/09/2015 6:58 AM SPRING WINDER Narrative [facility] - 08/09/2015 8:50 AM SPRING WINDER ? [facility] ? [address] [place], [place] ??[address] ? Test Date: ?2015-08-09 Pat Name: ? OBIE SIMS ?Department: ?? 1 ? Room: ? 0514A Gender: ? M ?Information Technology Coordinator: ?? sg : ?1955 ? Requested By: MARLEE VEGA Order Number: [id number] ? Reading MD: ?? Nico Phelps ? Measurements Intervals ?[place] ? Rate: ? 84 ? P: ?52 GA: ? 266 ?QRS: ?-8 QRSD: ? 123 ?T: ?149 QT: ? 386 ? QTc: ?458 ? Interpretive Statements SINUS RHYTHM WITH FIRST DEGREE AV BLOCK Incomplete Left Bundle Branch Block ST DEVIATION AND MODERATE T-WAVE ABNORMALITY, CONSIDER LATERAL ISCHEMIA NG WINDER Procedure Note , Generic Conversion, - 04/18/2019 [place] [address] [place] [address] Test Date: 2015-08-09 Pat Name: OBIE SIMS Department: 1 Room: [facility] Gender: M Information Technology Coordinator: : 1955 Requested By: MARLEE EVGA Order Number: [id number] Reading : Nico Phelps Measurements Intervals [place] Rate: 84 P: 52 GA: 266 QRS: -8 QRSD: 123 T: 149 QT: 386 QTc: 458 Interpretive Statements SINUS RHYTHM WITH FIRST DEGREE AV BLOCK Incomplete Left Bundle Branch Block ST DEVIATION AND MODERATE T-WAVE ABNORMALITY, CONSIDER LATERAL ISCHEMIA NG WINDER us Generic Conversion Md LANDR[facility] ECG ORDERABLES Final R esult [facility] documented in this encounter Visit Diagnoses Not on filedocumented in this encounter
--- OUTSIDE RECORDS SUMMARY | 2024-09-03 20:47 | XMS_ITS | Encounter Summary ---
Author Organization [facility] Address [facility] [place] [address] [place] [address] Care Team Providers Care Bleacher Groundwood Pulp Name Role Phone Amauri Pandey MD Unavailable Unavailabl Megan Leos MD Primary Care Provider [phone] Sharmila Davis APRN NATIONAL COVERAGE SPECIALIST-C Unavailable Linda Block MD Unavailable [phone] Encounter Details Date Type Department Care Team (Late st Contact Info) Description 03/20/2013 Abstract [facility] Solution Professional [address] [place] [address] Amauri Pandey MD Social History Tobacco Use [...] Contact Info) Description 09/25/2024 2:00 PM SUPERVISOR PAIRING AND INSPECTING Appointment [facility] [address] [place] [address] Zayra Powell, DUPLICATING MACHINE SERVICER [address] [place] [address] 10/16/2024 3:30 PM SUPERVISOR PAIRING AND INSPECTING Office Visit [facility] [address] [place] [phone] Brit Gonzáles MD [address] [place] [address] documented as of this encounter Procedures Procedure Name Priority Date/Time Associated Diagnosis Comments ECG 12-LEAD Routine 03/20/2013 10:59 AM CDT documented in this encounter Results * ECG 12 lead (03/20/2013 10:59 AM CDT) 03/20/2013 10:5 9 AM CDT Narrative [facility] - 03/20/2013 11:53 AM CDT ? [facility] ? [address], [place] ??[address] ? Test Date: ?2013-03-20 Pat Name: ? OBIE SIMS ?Department: ?? 1 ? Room: ? Gender: ? M ?Professor Of Biological Sciences: ?? sg : ?1955 ? Requested By: AMAURI PANDEY Order Number: [id number] ? Sage LANDRY: ?? Santiago Haque ? Measurements Intervals ?[place] ? Rate: ? 58 ? P: ?0 VA: ? 151 ?QRS: ?-16 QRSD: ? 114 ?T: ?134 QT: ? 435 ? QTc: ?432 ? Interpretive Statements SINUS BRADYCARDIA LEFT VENTRICULAR HYPERTROPHY AND ST-T CHANGE [VOLTAGE CRITERIA PLUS ST/T ABNORMALITY] POSSIBLE SEPTAL MYOCARDIAL INFARCTION [30 ms Q WAVE IN V1/V2], OF INDETERMINATE AGE Procedure Note Eun Landry MD - 04/19/2019 [facility] [address] [place] [address] Test Date: 2013-03-20 Pat Name: OBIE SIMS Department: 1 Room: Gender: M Professor Of Biological Sciences: : 1955 Requested By: AMAURI PANDEY Order Number: [id number] Reading MD: Santiago Haque Measurements Intervals [place] Rate: 58 P: 0 VA: 151 QRS: -16 QRSD: 114 T: 134 QT: 435 QTc: 432 Interpretive Statements SINUS BRADYCARDIA LEFT VENTRICULAR HYPERTROPHY AND ST-T CHANGE [VOLTAGE CRITERIA PLUS ST/T ABNORMALITY] POSSIBLE SEPTAL MYOCARDIAL INFARCTION [30 ms Q WAVE IN V1/V2], OF INDETERMINATE AGE us Generic Conversion Md LANDRY ECG ORDERABLES Final R esult [facility] documented in this encounter Visit Diagnoses Diagnosis Chest pain Chest pain, unspecified documented in this encounter Care Teams Bleacher Groundwood Pulp Relationship Specialty Start Date End Date Megan Infante MD [address] [facility] [place] [address] PCP - General FAMILY PRACTICE 04/06/16 Amauri Pandey MD [place] [employer]acer CARDIOVASCULAR DISEASE 04/06/16 12/28/23 Sharmila Davis, HOGSHEAD BUILDER, NATIONAL COVERAGE SPECIALIST-C [address] [facility] [address] [place] [address] NURSE PRACTITIONER 01/04/17 04/03/24 Linda Block MD [address]19 [facility] [address] [place] [address] [place] [employer] Racer CLINICAL CARDIAC ELECTROPHYSIOLOGY 02/08/17 04/12/23 documented as of this encounter
--- OUTSIDE RECORDS SUMMARY | 2024-09-03 20:47 | XMS_ITS | Encounter Summary ---
Author Organization [facility] Address [facility] [place] [address] [place] [address] Care Team Providers Care Associate Application Developer Name Role Phone Piyush Panedy MD Unavailable UnavailMegan Rodriguez MD Primary Care Provider [phone] Sharmila Davis APRN, CHIEF OF PEDIATRIC UROLOGY-C Unavailable Linda Block MD Unavailable [phone] Encounter Details Date Type Department Care Team (Latest Contact Info) Description 05/28/2014 Abstract [facility] Medical Group Shubham Callahan MD [address] [place] [address] Social History Tobacco Use Types Packs/Day Years [...] Contact Info) Description 09/25/2024 2:00 PM RN PROCEDURE Appointment [facility] [address] [place] [address] Zayra Powell FNP [address] [place] [address] 10/16/2024 3:30 PM RN PROCEDURE Office Visit [facility] [address] [place] [address] Brit Gonzáles MD [address] [place] [address] documented as of this encounter Visit Diagnoses Not on filedocumented in this encounter Care Teams Associate Application Developer Relationship Specialty Start Date End Date Megan Infante MD [address] [facility] [place] [address] PCP - General FAMILY PRACTICE 04/06/16 Piyush Pandey MD [place] Trial Mgr CARDIOVASCULAR DISEASE 04/06/16 12/28/23 Sharmila Davis APRN, CHIEF OF PEDIATRIC UROLOGY-C 619 [facility] [address] [place] [address] NURSE PRACTITIONER 01/04/17 04/03/24 Linda Block MD 619 [facility] [address] [phone] [place] Trial Mgr CLINICAL CARDIAC ELECTROPHYSIOLOGY 02/08/17 04/12/23 documented as of this encounter
--- OUTSIDE RECORDS SUMMARY | 2024-09-03 20:47 | XMS_ITS | Encounter Summary ---
Author Organization [facility] Address [address] [place] [address]. [place] [address] [place] [address] Care Team Providers Care Pharmacy Technician Name Role Phone Unavailable Primary Care Provider Unavailabl e Encounter Details Date Type Department Care Team (Late st Contact Info) Description 11/13/2013 Scan [facility] [address] [place] [address] Eun Tovar MD Social History [...] st Contact Info) Description 09/25/2024 2:00 PM WEATHERIZATION INSTALLER Appointment [facility] [address] [place] [address] Zayra Powell, SALES AGENT TRADING STAMPS [address] [place] [address] 10/16/2024 3:30 PM WEATHERIZATION INSTALLER Office Visit [facility] [address] [phone] Brit Gonzáles MD 6[address] [place] [address] documented as of this encounter Visit Diagnoses Not on filedocumented in this encounter
--- OUTSIDE RECORDS SUMMARY | 2024-09-03 20:47 | XMS_ITS | Encounter Summary ---
Author Organization [facility] Address [facility] [place] [address] [place] [address] Care Team Providers Care Health And Wellness Instructor Name Role Phone Piyush Pandey MD Unavailable Unavailabl e Megan Infante MD Primary Care Provider [phone] Sharmila Davis APRN, RAIL CAR PAINTER/SANDBLASTER-C Unavailable Linda Vega MD Unavailable [phone] Encounter Details Date Type Department Care Team (Late st Contact Info) Description 11/21/2013 Abstract [facility] - [facility] [address] [place] [address] Linda Vega MD [address] [facility] [address] [place] [address] Social History Tobacco Use Types Packs/Day Years [...] Contact Info) Description 09/25/2024 2:00 PM PRINT OPERATOR Appointment [facility] [address] [place] [address] Zayra Powell, EXPERIENCE DESIGN DIRECTOR [address] [place] [address] 10/16/2024 3:30 PM PRINT OPERATOR Office Visit [facility] [place] [address] Brit Gonzáles MD 619 [place] [address] documented as of this encounter Procedures Procedure Name Priority Date/Time Associated Diagnosis Comments ECG 12-LEAD Routine 11/21/2013 9:48 AM CDT documented in this encounter Results * ECG 12 lead (11/21/2013 9:48 AM CDT) 11/21/2013 9:[address] [facility] - 11/21/2013 2:57 PM CDT ? [facility] ? [address] [place], [place] ??[address] ? Test Date: ?2013-11-21 Pat Name: ? OBIE SIMS ?Department: ?? 1 ? Room: ? Gender: ? M ?Cook House Laborer: ?? dms : ?1955 ? Requested By: LINDA VEGA Order Number: [id number] ? Sage LANDRY: ?? Nico Phelps ? Measurements Intervals ?[place] ? Rate: ? 67 ? P: ?13 ME: ? 168 ?QRS: ?-14 QRSD: ? 129 ?T: ?136 QT: ? 453 ? QTc: ?468 ? Interpretive Statements SINUS RHYTHM LEFT VENTRICULAR HYPERTROPHY AND ST-T CHANGE Procedure Note Eun Landry MD - 04/19/2019 [facility] [address] [place] [address] Test Date: 2013-11-21 Pat Name: OBIE SIMS Department: 1 Room: Gender: M Cook House Laborer: [facility] : 1955 Requested By: LINDA VEGA Order Number: [id number] Reading : Nico Phelps Measurements Intervals [place] Rate: 67 P: 13 ME: 168 QRS: -14 QRSD: 129 T: 136 QT: 453 QTc: 468 Interpretive Statements SINUS RHYTHM LEFT VENTRICULAR HYPERTROPHY AND ST-T CHANGE us Generic Conversion Md LANDRY ECG ORDERABLES Final R esult [facility] documented in this encounter Visit Diagnoses Diagnosis Atrial fibrillation (CMS/HCC HHS/HCC) Atrial fibrillation documented in this encounter Care Teams Health And Wellness Instructor Relationship Specialty Start Date End Date Megan Infante MD [address] [facility] [place] [address] PCP - General FAMILY PRACTICE 04/06/16 Piyush Pandey MD [place] Psychology Physician CARDIOVASCULAR DISEASE 04/06/16 12/28/23 Sharmila Davis, MANAGER RESEARCH AND DEVELOPMENT, RAIL CAR PAINTER/SANDBLASTER-C [address] [facility] [address] [place] [address] NURSE PRACTITIONER 01/04/17 04/03/24 Linda Vega MD 619 [facility] [address] [place] [address] [place] Psychology Physician CLINICAL CARDIAC ELECTROPHYSIOLOGY 02/08/17 04/12/23 documented as of this encounter
--- OUTSIDE RECORDS SUMMARY | 2024-09-03 20:47 | XMS_ITS | Encounter Summary ---
Author Organization [facility] Address [address] [place] [address]. [place] [address] [place] [address] Care Team Providers Care Doughnut Machine Operator Name Role Phone Piyush Pandey MD Unavailable UnavailMegan Rodriguez MD Primary Care Provider [phone] Sharmila Davis APRN, BURRING MACHINE OPERATOR-C Unavailable Linda Block MD Unavailable [phone] Encounter Details Date Type Department Care Team (Late st Contact Info) Description 04/27/[address] [facility] [address] [place] [address] Matias Mac MD [address] [place] [address] Social History Tobacco Use Types Packs/Day Years [...] st Contact Info) Description 09/25/2024 2:[address] [facility] [address] [place] [address] Zayra Powell, AUTOMOBILE ENGINE ASSEMBLER [address] [place] [address] 10/16/2024 3:30 PM FILING WRITER Office Visit [facility] [place] [phone] Brit Gonzáles MD 619 [place] [address] documented as of this encounter Visit Diagnoses Diagnosis Encounter for rehabilitation Unspecified rehabilitation procedure documented in this encounter Care Teams Doughnut Machine Operator Relationship Specialty Start Date End Date Megan Infante MD [address] [place] [phone] PCP - General FAMILY PRACTICE 04/06/16 Piyush Pandey MD [place] Director Medical CARDIOVASCULAR DISEASE 04/06/16 12/28/23 Sharmila Davis APRN, BURRING MACHINE OPERATOR-C [address] [facility] [address] [place] [address] NURSE PRACTITIONER 01/04/17 04/03/24 Linda Block MD 619 [facility] [address] [place] [phone] [place] Director Medical CLINICAL CARDIAC ELECTROPHYSIOLOGY 02/08/17 04/12/23 documented as of this encounter
--- OUTSIDE RECORDS SUMMARY | 2024-09-03 20:47 | XMS_ITS | Encounter Summary ---
Author Organization [facility] Address [address] [place] [address]. [place] [address] [place] [address] Care Team Providers Care Diamond Cutter Name Role Phone Unavailable Primary Care Provider Unavailabl e Encounter Details Date Type Department Care Team (Late st Contact Info) Description 03/29/2014 Scan [facility] [address] [place] [address] Eun Tovar MD Social History [...] Contact Info) Description 09/25/2024 2:00 PM SUPERVISOR TUBING Appointment [facility] [address] [place] [address] Zayra Powell, PLANTING MATERIAL UNLOADER [address] [place] [address] 10/16/2024 3:30 PM SUPERVISOR TUBING Office Visit [facility] [address] [phone] Brit Gonzáles MD 619 [place] [address] documented as of this encounter Visit Diagnoses Not on filedocumented in this encounter
--- OUTSIDE RECORDS SUMMARY | 2024-09-03 20:47 | XMS_ITS | Encounter Summary ---
Author Organization [facility] Address [address] [place] [address]. [place] [address] [place] [address] Care Team Providers Care Utilization Engineer Name Role Phone Unavailable Primary Care Provider Unavailabl e Encounter Details Date Type Department Care Team (Late st Contact Info) Description 12/07/2013 Scan [facility] [address] [place] [address] Eun Tovar MD Social History [...] Contact Info) Description 09/25/2024 2:00 PM OPTICAL LAB TECHNICIAN Appointment [facility] [address] [place] [address] Zayra Powell, ECCLESIASTICAL WORKER [address] [place] [address] 10/16/2024 3:30 PM OPTICAL LAB TECHNICIAN Office Visit [facility] [address] [phone] Brit Gonzáles MD 619 [place] [address] documented as of this encounter Visit Diagnoses Not on filedocumented in this encounter
--- OUTSIDE RECORDS SUMMARY | 2024-09-03 20:47 | XMS_ITS | Encounter Summary ---
Author Organization [facility] Address [address] [place] [address]. [place] [address] [place] [address] Care Team Providers Care Continuity Coordinator Name Role Phone Unavailable Primary Care Provider Unavailabl e Encounter Details Date Type Department Care Team (Late st Contact Info) Description 02/15/2013 Abstract [facility] 6[address] [place] [address] Eun Landry MD Social History [...] Contact Info) Description 09/25/2024 2:00 PM IT SENIOR SOFTWARE ENGINEER JAVA Appointment [facility] [address] [place] [address] Zayra Powell, FANCY SEWER [address] [place] [address] 10/16/2024 3:30 PM IT SENIOR SOFTWARE ENGINEER JAVA Office Visit [facility] [address] [phone] Brit Gonzáles MD 619 [place] [address] documented as of this encounter Procedures Procedure [...]
--- OUTSIDE RECORDS SUMMARY | 2024-09-03 20:47 | XMS_ITS | Encounter Summary ---
Author Organization [facility] Address [address] [place] [address]. [place] [address] [place] [address] Care Team Providers Care Esthetician Spa Name Role Phone Piyush Pandey MD Unavailable UnavailMegan Rodriguez MD Primary Care Provider [phone] Sharmila Davis APRN, FOUNDRY SUPERINTENDANT-C Unavailable Linda Block MD Unavailable [phone] Encounter Details Date Type Department Care Team (Late st Contact Info) Description 09/17/[address] [facility] [address] [place] [address] Matias Mac MD [address] [place] [address] Social History Tobacco Use Types Packs/Day Years [...] st Contact Info) Description 09/25/2024 2:00 PM FILLING MACHINE TENDER Appointment [facility] [address] [place] [address] Zayra Powell FNP [address] [place] [address] 10/16/2024 3:30 PM FILLING MACHINE TENDER Office Visit [facility] [address] [place] [phone] Brit Gonzáles MD 619 [place] [address] documented as of this encounter Visit Diagnoses Diagnosis [facility] current use of anticoagulant therapy documented in this encounter Care Teams Esthetician Spa Relationship Specialty Start Date End Date Megan Infante MD [address] [place] [address] PCP - General FAMILY PRACTICE 04/06/16 Piyush Pandey MD [place] [employer] CARDIOVASCULAR DISEASE 04/06/16 12/28/23 Sharmila Davis, DANNY, FOUNDRY SUPERINTENDANT-C 619 [facility] [address] [place] [address] NURSE PRACTITIONER 01/04/17 04/03/24 Linda Block MD 619 [facility] [address] [place] [phone] [employer] CLINICAL CARDIAC ELECTROPHYSIOLOGY 02/08/17 04/12/23 documented as of this encounter
--- OUTSIDE RECORDS SUMMARY | 2024-09-03 20:47 | XMS_ITS | Encounter Summary ---
Author Organization [facility] Address [facility] [place] [address] [place] [address] Care Team Providers Care Desk Operator Name Role Phone Piyush Pandey MD Unavailable UnavailMegan Rodriguez MD Primary Care Provider [phone] Sharmila Davis APRN, MECHANICAL MAINTENANCE WORKER-C Unavailable Marlee Block MD Unavailable [phone] Encounter Details Date Type Department Care Team (Latest Contact Info) Description 10/01/2015 Abstract [facility] Medical [facility] Social History Tobacco Use [...] st Contact Info) Description 09/25/2024 2:00 PM SLUBBER FRAME CHANGER Appointment [facility] [address] [place] [address] Zayra Powell, PATIENT FINANCIAL SERVICES MANAGER [address] [place] [address] 10/16/2024 3:30 PM SLUBBER FRAME CHANGER Office Visit [facility] [address] [place] [address] Brit Gonzáles MD 619 [place], [place] [phone] documented as of this encounter Procedures Procedure Name Priority Date/Time Associated Diagnosis Comments ECG 12-LEAD Routine 10/01/2015 8:39 AM SLUBBER FRAME CHANGER ECG 12-LEAD Routine 10/01/2015 6:55 AM SLUBBER FRAME CHANGER documented in this encounter Results * ECG 12 lead (10/01/2015 8:39 AM SLUBBER FRAME CHANGER) 10/01/2015 8:39 AM SLUBBER FRAME CHANGER Narrative [facility] - 10/01/2015 10:00 AM SLUBBER FRAME CHANGER ? [facility] ? [address] [place], [place] ??[address] ? Test Date: ?2015-10-01 Pat Name: ? OBIE SIMS ?Department: ?? 1 ? Room: ? CRU0 Gender: ? M ?Tow Bar Driver: ?? gs ??kw : ?1955 ? Requested By: MARLEE BLOCK Order Number: [id number] ? Reading : ?? Martin Perry ? Measurements Intervals ?[place] ? Rate: ? 89 ? P: ? AK: ? 0 ?QRS: ?-17 QRSD: ? 133 ?T: ?137 QT: ? 410 ? QTc: ?499 ? Interpretive Statements SINUS RHYTHM WITH FIRST DEGREE A-V BLOCK INCOMPLETE LBBB LATERAL ST AND T WAVE ABNORMALITY, CONSIDER ISCHEMIA BER FRAME CHANGER Procedure Note Eun Landry MD - 04/18/2019 [place] [address] [place] [address] Test Date: 2015-10-01 Pat Name: OBIE SIMS Department: 1 Room: [facility] Gender: M Tow Bar Driver: gs kw : 1955 Requested By: MARLEE BLOCK Order Number: [id number] Reading MD: Martin Perry Measurements Intervals [place] Rate: 89 P: AK: 0 QRS: -17 QRSD: 133 T: 137 QT: 410 QTc: 499 Interpretive Statements SINUS RHYTHM WITH FIRST DEGREE A-V BLOCK INCOMPLETE LBBB LATERAL ST AND T WAVE ABNORMALITY, CONSIDER ISCHEMIA BER FRAME CHANGER us Generic Conversion Md LANDRY ECG ORDERABLES Final R esult [facility] * ECG 12 lead (10/01/2015 6:55 AM SLUBBER FRAME CHANGER) 10/01/2015 6:55 AM SLUBBER FRAME CHANGER Narrative [facility] - 10/01/2015 8:47 PM SLUBBER FRAME CHANGER ? [facility] ? [address], [place] ??[address] ? Test Date: ?2015-10-01 Pat Name: ? OBIE SISM ?Department: ?? 1 ? Room: ? 0455 Gender: ? M ?Tow Bar Driver: ?? gs kw : ?1955 ? Requested By: MARLEE BLOCK Order Number: [id number] ? Reading : ?? Martin Perry ? Measurements Intervals ?[place] ? Rate: ? 75 ? P: ? AK: ? 0 ?QRS: ?-16 QRSD: ? 133 ?T: ?146 QT: ? 432 ? QTc: ?483 ? Interpretive Statements ATRIAL FIBRILLATION INTRAVENTRICULAR CONDUCTION DELAY POSSIBLE LEFT VENTRICULAR HYPERTROPHY BER FRAME CHANGER Procedure Note Eun Landry MD - 04/18/2019 [place] [address] [place] [address] Test Date: 2015-10-01 Pat Name: OBIE SIMS Department: 1 Room: [facility] Gender: M Tow [place] Driver: gs kw : 1955 Requested By: MARLEE BLOCK Order Number: [id number] Reading MD: Martin Perry Measurements Intervals [place] Rate: 75 P: AK: 0 QRS: -16 QRSD: 133 T: 146 QT: 432 QTc: 483 Interpretive Statements ATRIAL FIBRILLATION INTRAVENTRICULAR CONDUCTION DELAY POSSIBLE LEFT VENTRICULAR HYPERTROPHY BER FRAME CHANGER us Generic Conversion Md LANDRY ECG ORDERABLES Final R esult [facility] documented in this encounter Visit Diagnoses Not on filedocumented in this encounter Care Teams Desk Operator Relationship Specialty Start Date End Date Megan Infante MD [address] [facility] [place] [address] PCP - General FAMILY PRACTICE 04/06/16 Piyush Pandey MD [place] Animal Humane Agent Supervisor CARDIOVASCULAR DISEASE 04/06/16 12/28/23 Sharmila Davis APRN, MECHANICAL MAINTENANCE WORKER-C [address] [facility]] [address] [place] [phone] NURSE PRACTITIONER 01/04/17 04/03/24 Marlee Block MD [address] [address] [place] [phone] [place] Animal Humane Agent Supervisor CLINICAL CARDIAC ELECTROPHYSIOLOGY 02/08/17 04/12/23 documented as of this encounter
--- OUTSIDE RECORDS SUMMARY | 2024-09-03 20:47 | XMS_ITS | Encounter Summary ---
Author Organization [facility] Address [address] [place] [address]. [place] [address] [place] [address] Care Team Providers Care Fish Header Name Role Phone Piyush Pandey MD Unavailable UnavailMegan Rodriguez MD Primary Care Provider [phone] Sharmila Davis APRN, WEB SERVICES MANAGER-C Unavailable [phone] Linda Block MD Unavailable [phone] Encounter Details Date Type Department Care Team (Late st Contact Info) Description 08/31/[address] [facility] [address] [place] [address] Matias Mac MD [address] [place] [address] Social History Tobacco Use Types Packs/Day Years [...] Contact Info) Description 09/25/2024 2:00 PM [address]ER Appointment [facility] [address] [place] [address] Zayra Powell FNP [address] [place] [address] 10/16/2024 3:30 PM FISH PEDDLER Office Visit [facility] [address] [place] [phone] Brit Gonzáles MD 619 [place] [address] documented as of this encounter Visit Diagnoses Diagnosis Heart valve replaced by transplant documented in this encounter Care Teams Fish Header Relationship Specialty Start Date End Date Megan Infante MD [address] [place] [address] PCP - General FAMILY PRACTICE 04/06/16 Piyush Pandey MD [place] Butt Maker CARDIOVASCULAR DISEASE 04/06/16 12/28/23 Sharmila Davis, ELECTRIC ORGAN INSPECTOR AND REPAIRER, WEB SERVICES MANAGER-C [address] [facility] [address] [place] [phone] NURSE PRACTITIONER 01/04/17 04/03/24 Linda Block MD [address] [facility] [address] [place] [phone] [place] Butt Maker CLINICAL CARDIAC ELECTROPHYSIOLOGY 02/08/17 04/12/23 documented as of this encounter
--- OUTSIDE RECORDS SUMMARY | 2024-09-03 20:47 | XMS_ITS | Encounter Summary ---
Author Organization [facility] Address [address] [place] [address]. [place] [address] [place] [address] Care Team Providers Care Vocational Instructor Name Role Phone Unavailable Primary Care Provider Unavailabl e Encounter Details Date Type Department Care Team (Late st Contact Info) Description 10/21/2015 Scan [facility] [address] [place] [address] Eun Tovar MD Social History [...] st Contact Info) Description 09/25/2024 2:00 PM DEPOT MANAGER Appointment [facility] [address] [place] [address] Zayra Powell, PRODUCTION LEAD [address] [place] [address] 10/16/2024 3:30 PM DEPOT MANAGER Office Visit [facility] [address] [phone] Brit Gonzáles MD [address] [place] [address] documented as of this encounter Visit Diagnoses Not on filedocumented in this encounter
--- OUTSIDE RECORDS SUMMARY | 2024-09-03 20:47 | XMS_ITS | Encounter Summary ---
Author Organization [facility] Address [facility] [place] [address] [place] [address] Care Team Providers Care Aluminum Polisher Name Role Phone Piyush Pandey MD Unavailable UnavailMegan Rodriguez MD Primary Care Provider [phone] Sharmila Davis APRN, BALLISTIC TECHNICIAN-C Unavailable [phone] Linda Block MD Unavailable [phone] Encounter Details Date Type Department Care Team (Late st Contact Info) Description 10/23/2015 Orders Only [facility] CONVERSION [place], [place] [id number] , Generic Conversion, Social History Tobacco Use [...] Description 09/25/2024 2:00 PM DOMESTIC HOUSEKEEPER Appointment [facility] [address] [place] [address] Zayra Powell, COMMUTER TRAIN OPERATOR [address] [place] [address] 10/16/2024 3:30 PM DOMESTIC HOUSEKEEPER Office Visit [facility] [address] [place] [phone] Brit Gonzáles MD [address]19 [place] [address] documented as of this encounter Procedures Procedure Name Priority Date/Time Associated Diagnosis Comments PROTHROMBIN TIME, VENOUS NOW 10/23/2015 10:25 AM DOMESTIC HOUSEKEEPER documented in this encounter Results * PROTIME/INR, VENOUS (10/23/2015 10:25 AM DOMESTIC HOUSEKEEPER) PROTIME 14.1 11.6 - 14.3 SEC 10/23/2015 10:42 AM DOMESTIC HOUSEKEEPER [facility] ORDERS INTERFACE INR 1.1 0.9 - 1.1 10/23/2015 10:42 AM DOMESTIC HOUSEKEEPER [facility] ORDERS INTERFACE 10/23/2015 10:2 5 AM DOMESTIC HOUSEKEEPER 10/23/2015 10:30 AM DOMESTIC HOUSEKEEPER us Generic Conversion Md [facility] Final R esult Performing Organization Address City/State/[facility] Co de Phone Number [facility] ORDERS INTERFACE [address] documented in this encounter Visit Diagnoses Not on filedocumented in this encounter Care Teams Aluminum Polisher Relationship Specialty Start Date End Date Megan Infante MD [address] [place] [address] PCP - General FAMILY PRACTICE 04/06/16 Piyush Pandey MD Igo Chute Worker CARDIOVASCULAR DISEASE 04/06/16 12/28/23 Sharmila Davis APRN, BALLISTIC TECHNICIAN-C [address] [facility] [address] [place] [address] NURSE PRACTITIONER 01/04/17 04/03/24 Linda Block MD [address] [place] [address] Igo Chute Worker CLINICAL CARDIAC ELECTROPHYSIOLOGY 02/08/17 04/12/23 documented as of this encounter
--- OUTSIDE RECORDS SUMMARY | 2024-09-03 20:47 | XMS_ITS | Encounter Summary ---
Author Organization [facility] Address [address] [place] [address]. [place] [address] [place] [address] Care Team Providers Care Waste Oil Pumper Name Role Phone Unavailable Primary Care Provider Unavailabl e Encounter Details Date Type Department Care Team (Late st Contact Info) Description 07/11/2015 Abstract [facility] AT [address] [address] Eun Tovar MD Social History [...] st Contact Info) Description 09/25/2024 2:00 PM WINDOWS SYSTEMS ADMIN Appointment [facility] [address] [place] [address] Zayra Powell, CONVEYOR ATTENDANT [address] [place] [address] 10/16/2024 3:30 PM WINDOWS SYSTEMS ADMIN Office Visit [facility] [address] [phone] Brit Gonzáles MD [address] [place] [address] documented as of this encounter Visit Diagnoses Not on filedocumented in this encounter
--- OUTSIDE RECORDS SUMMARY | 2024-09-03 20:47 | XMS_ITS | Encounter Summary ---
Author Organization [facility] Address [facility] [place] [address] [place] [address] Care Team Providers Care Global Logistics Manager Name Role Phone Piyush Pandey MD Unavailable UnavailMegan Rodriguez MD Primary Care Provider [phone] Sharmila Davis APRN, MEDICAL RECORDS DIRECTOR-C Unavailable Marlee Vega MD Unavailable [phone] Encounter Details Date Type Department Care Team (Latest Contact Info) Description 08/08/2015 Abstract [facility] Social History Tobacco Use [...] Description 09/25/2024 2:00 PM SPEECH LANGUAGE PATHOLOGIST TRAVEL Appointment [facility] [address] [place] [address] Zayra Powell, INSURANCE AGENCY OWNER [address] [place] [address] 10/16/2024 3:30 PM SPEECH LANGUAGE PATHOLOGIST TRAVEL Office Visit [facility] [address] [place] [address] Brit Gonzáles MD [address] [place], [place] [phone] documented as of this encounter Procedures Procedure Name Priority Date/Time Associated Diagnosis Comments ECG 12-LEAD Routine 08/08/2015 2:21 PM SPEECH LANGUAGE PATHOLOGIST TRAVEL documented in this encounter Results * ECG 12 lead (08/08/2015 2:21 PM SPEECH LANGUAGE PATHOLOGIST TRAVEL) 08/08/2015 2:21 PM SPEECH LANGUAGE PATHOLOGIST TRAVEL Narrative [facility] - 08/08/2015 3:46 PM SPEECH LANGUAGE PATHOLOGIST TRAVEL ? [facility] ? [address] [place], [place] ??[address] ? Test Date: ?2015-08-08 Pat Name: ? OBIE SIMS ?Department: ?? 1 ? Room: ? 0514 Gender: ? M ?Supervisor Pumping: ?? hm : ?1955 ? Requested By: MARLEE VEGA Order Number: [id number] ? Reading MD: ?? Nico Phelps ? Measurements Intervals ?[place] ? Rate: ? 104 ?P: ?37 SD: ? 140 ?QRS: ?-11 QRSD: ? 126 ?T: ?143 QT: ? 356 ? QTc: ?469 ? Interpretive Statements SINUS TACHYCARDIA MODERATE INTRAVENTRICULAR CONDUCTION DELAY ST DEVIATION AND MODERATE T-WAVE ABNORMALITY, CONSIDER LATERAL ISCHEMIA CH LANGUAGE PATHOLOGIST TRAVEL Procedure Note Eun Landry MD - 04/18/2019 [place] [address] [place] [address] Test Date: 2015-08-08 Pat Name: OBIE SIMS Department: 1 Room: [facility] Gender: M Supervisor Pumping: : 1955 Requested By: MARLEE VEGA Order Number: [id number] Reading : Nico Phelps Measurements Intervals [place] Rate: 104 P: 37 SD: 140 QRS: -11 QRSD: 126 T: 143 QT: 356 QTc: 469 Interpretive Statements SINUS TACHYCARDIA MODERATE INTRAVENTRICULAR CONDUCTION DELAY ST DEVIATION AND MODERATE T-WAVE ABNORMALITY, CONSIDER LATERAL ISCHEMIA CH LANGUAGE PATHOLOGIST TRAVEL us Generic Conversion Md LANDRY ECG ORDERABLES Final R esult [facility] documented in this encounter Visit Diagnoses Not on filedocumented in this encounter Care Teams Global Logistics Manager Relationship Specialty Start Date End Date Megan Infante MD [address] [place] [address] PCP - General FAMILY PRACTICE 04/06/16 Piyush Pandey MD Rodney Medicare Interviewer CARDIOVASCULAR DISEASE 04/06/16 12/28/23 Sahrmila Davis APRN, MEDICAL RECORDS DIRECTOR-C [address] [facility] [address] [place] [phone] NURSE PRACTITIONER 01/04/17 04/03/24 Marlee Vega MD [address] [facility] [address] [place] [phone] Rodney Medicare Interviewer CLINICAL CARDIAC ELECTROPHYSIOLOGY 02/08/17 04/12/23 documented as of this encounter
--- OUTSIDE RECORDS SUMMARY | 2024-09-03 20:47 | XMS_ITS | Encounter Summary ---
Author Organization [facility] Address [address] [place] [address]. [place] [address] [place] [address] Care Team Providers Care Real Estate Professional Name Role Phone Unavailable Primary Care Provider Unavailabl e Encounter Details Date Type Department Care Team (Late st Contact Info) Description 06/21/2015 Scan [facility] [address] [place] [address] Eun Tovar MD Social History [...] st Contact Info) Description 09/25/2024 2:00 PM PIANO CASE MAKER Appointment [facility] [address] [place] [address] Zayra Powell, DATA REVIEW SPECIALIST [address] [place] [address] 10/16/2024 3:30 PM PIANO CASE MAKER Office Visit [facility] [address] [phone] Brit Gonzáles MD [address] [place] [address] documented as of this encounter Visit Diagnoses Not on filedocumented in this encounter
--- OUTSIDE RECORDS SUMMARY | 2024-09-03 20:47 | XMS_ITS | Encounter Summary ---
Author Organization [facility] Address [address] [place] [address]. [place] [address] [place] [address] Care Team Providers Care Rhythmic Gymnastics Coach Name Role Phone Unavailable Primary Care Provider Unavailabl e Encounter Details Date Type Department Care Team (Late st Contact Info) Description 11/05/2014 Abstract [facility] [address] [place] [address] Eun Tovar MD Social History [...] st Contact Info) Description 09/25/2024 2:00 PM PRECISION GRINDER Appointment [facility] [address] [place] [address] Zayra Powell, OIL FIELD PIPELINE SUPERVISOR [address] [place] [address] 10/16/2024 3:30 PM PRECISION GRINDER Office Visit [facility] [address] [phone] Brit Gonzáles MD [address] [place] [address] documented as of this encounter Visit Diagnoses Not on filedocumented in this encounter
--- OUTSIDE RECORDS SUMMARY | 2024-09-03 20:47 | XMS_ITS | Encounter Summary ---
Author Organization [facility] Address [facility] [place] [address] [place] [address] Care Team Providers Care Daylight Driller Name Role Phone Amauri Pandey MD Unavailable Unavailabl Megan Leos MD Primary Care Provider [phone] Sharmila Davis APRN OFFSHORING MANAGER-C Unavailable [phone] Linda Block MD Unavailable [phone] Encounter Details Date Type Department Care Team (Late st Contact Info) Description 10/16/2013 Abstract [facility] - [facility] [address] [place] [address] Amauri Pandey MD Social History Tobacco Use [...] Contact Info) Description 09/25/2024 2:00 PM SUPERVISOR ENGINE REPAIR Appointment [facility] [address] [place] [address] Zayra Powell, NURSE SITTER [address] [place] [address] 10/16/2024 3:30 PM SUPERVISOR ENGINE REPAIR Office Visit [facility] [address] [place] [phone] Brit Gonzáles MD [address] [place] [address] documented as of this encounter Procedures Procedure Name Priority Date/Time Associated Diagnosis Comments ECG 12-LEAD Routine 10/16/2013 10:48 AM SUPERVISOR ENGINE REPAIR documented in this encounter Results * ECG 12 lead (10/16/2013 10:48 AM SUPERVISOR ENGINE REPAIR) 10/16/2013 10:4 8 AM SUPERVISOR ENGINE REPAIR Narrative [facility] - 10/17/2013 3:29 AM SUPERVISOR ENGINE REPAIR ? [facility] ? [address] [place], [place] ??[address] ? Test Date: ?2013-10-16 Pat Name: ? OBIE SIMS ?Department: ?? 1 ? Room: ? Gender: ? M ?Kiln Operator: ?? hm : ?1955 ? Requested By: AMAURI PANDEY Order Number: [id number] ? Reading : ?? Amauri Pandey ? Measurements Intervals ?[place] ? Rate: ? 60 ? P: ? [place]: ? 0 ?QRS: ?-17 QRSD: ? 126 ?T: ?143 QT: ? 425 ? QTc: ?426 ? Interpretive Statements ATRIAL FIBRILLATION WITH ABERRANT CONDUCTION OR VENTRICULAR PREMATURE COMPLEXES MODERATE INTRAVENTRICULAR CONDUCTION DELAY MODERATE VOLTAGE CRITERIA FOR LVH, CONSIDER NORMAL VARIANT ST AND T-WAVE ABNORMALITY, CONSIDER LATERAL ISCHEMIA RVISOR ENGINE REPAIR Procedure Note Eun Landry MD - 04/19/2019 [facility] [address] [place] [address] Test Date: 2013-10-16 Pat Name: OBIE SIMS Department: 1 Room: Gender: M Kiln Operator: : 1955 Requested By: AMAURI PANDEY Order Number: [id number] Reading MD: Amauri Pandey Measurements Intervals [place] Rate: 60 P: [place]: 0 QRS: -17 QRSD: 126 T: 143 QT: 425 QTc: 426 Interpretive Statements ATRIAL FIBRILLATION WITH ABERRANT CONDUCTION OR VENTRICULAR PREMATURE COMPLEXES MODERATE INTRAVENTRICULAR CONDUCTION DELAY MODERATE VOLTAGE CRITERIA FOR LVH, CONSIDER NORMAL VARIANT ST AND T-WAVE ABNORMALITY, CONSIDER LATERAL ISCHEMIA RVISOR ENGINE REPAIR us Generic Conversion Md LANDRY ECG ORDERABLES Final R esult [facility] documented in this encounter Visit Diagnoses Diagnosis Pre-operative cardiovascular examination documented in this encounter Care Teams Daylight Driller Relationship Specialty Start Date End Date Megan Infante MD [address] [facility] [place] [address] PCP - General FAMILY PRACTICE 04/06/16 Amauri Pandey MD [place] Buckle And Button Maker CARDIOVASCULAR DISEASE 04/06/16 12/28/23 Sharmila Davis, ASBESTOS REMOVAL WORKER, OFFSHORING MANAGER-C [address] [facility]] [address] [place] [address] NURSE PRACTITIONER 01/04/17 04/03/24 Linda Blcok MD [address] [facility] [address] [place] [address] [place] Buckle And Button Maker CLINICAL CARDIAC ELECTROPHYSIOLOGY 02/08/17 04/12/23 documented as of this encounter
--- OUTSIDE RECORDS SUMMARY | 2024-09-03 20:47 | XMS_ITS | Encounter Summary ---
Author Organization [facility] Address [address] [place] [address]. [place] [address] [place] [address] Care Team Providers Care Jacquard Loom Carpet Weaver Name Role Phone Piyush Pandey MD, Amy E MD Primary Care Provider [phone] Encounter Details Date Type Department Care Team (Late st Contact Info) Description 10/27/2012 Scan [facility] AT [address] [address] Eun Tovar MD Social History [...] Contact Info) Description 09/25/2024 2:00 PM SERVICES MGR Appointment [facility] [address] [place] [address] Zayra Powell, CASINO RUNNER [address] [place] [address] 10/16/2024 3:30 PM SERVICES MGR Office Visit [facility] [address] [place] [phone] Brit Gonzáles MD [address] [place] [address] documented as of this encounter Visit Diagnoses Not on filedocumented in this encounter Care Teams Jacquard Loom Carpet Weaver Relationship Specialty Start Date End Date Megan Infante MD [address] [facility] [place] [address] PCP - General FAMILY PRACTICE 04/06/16 Piyush Pandey MD Morley Silo Worker CARDIOVASCULAR DISEASE 04/06/16 12/28/23 documented as of this encounter
--- OUTSIDE RECORDS SUMMARY | 2024-09-03 20:47 | XMS_ITS | Encounter Summary ---
Author Organization [facility] Address [address] [place] [address]. [place] [address] [place] [address] Care Team Providers Care Amalgamator Name Role Phone Unavailable Primary Care Provider Unavailabl e Encounter Details Date Type Department Care Team (Late st Contact Info) Description 09/28/2013 Scan [facility] [place] [address] [place] [address] Eun Tovar MD Social History [...] Contact Info) Description 09/25/2024 2:00 PM CONTINUOUS MINING OPERATOR Appointment [facility] [address] [place] [address] Zayra Powell, EDUCATIONAL ADVISOR [address] [place] [address] 10/16/2024 3:30 PM CONTINUOUS MINING OPERATOR Office Visit [facility] [address] [phone] Brit Gonzáles MD [address] [place] [address] documented as of this encounter Visit Diagnoses Not on filedocumented in this encounter
--- OUTSIDE RECORDS SUMMARY | 2024-09-03 20:47 | XMS_ITS | Encounter Summary ---
Author Organization [facility] Address [address] [place] [address]. [place] [address] [place] [address] Care Team Providers Care Tear Down Man Name Role Phone Piyush Pandey MD Unavailable UnavailMegan Rodriguez MD Primary Care Provider [phone] Sharmila Davis APRN, MEDICAL SALES ASSOCIATE-C Unavailable Linda Block MD Unavailable [phone] Encounter Details Date Type Department Care Team (Late st Contact Info) Description 09/24/[address] [facility] [address] [place] [address] Matias Mac MD [address] [place] [address] Social History Tobacco Use Types Packs/Day Years [...] st Contact Info) Description 09/25/2024 2:00 PM CHEMICAL TECHNICIAN Appointment [facility] [address] [place] [address] Zayra Powell FNP [address] [place] [address] 10/16/2024 3:30 PM CHEMICAL TECHNICIAN Office Visit [facility] [address] [place] [phone] Brit Gonzáles MD [address] [place] [address] documented as of this encounter Visit Diagnoses Diagnosis Atrial fibrillation (CMS/HCC HHS/HCC) Atrial fibrillation documented in this encounter Care Teams Tear Down Man Relationship Specialty Start Date End Date Megan Infante MD [address] [place] [address] PCP - General FAMILY PRACTICE 04/06/16 Piyush Pandey MD [place] Tight Cooper CARDIOVASCULAR DISEASE 04/06/16 12/28/23 Sharmila Davis APRN, MEDICAL SALES ASSOCIATE-C [address] [facility] [address] [place] [address] NURSE PRACTITIONER 01/04/17 04/03/24 Linda Block MD 619 [facility] [address] [place] [address] [place] Tight Cooper CLINICAL CARDIAC ELECTROPHYSIOLOGY 02/08/17 04/12/23 documented as of this encounter
--- OUTSIDE RECORDS SUMMARY | 2024-09-03 20:47 | XMS_ITS | Encounter Summary ---
Author Organization [facility] Address [facility] [place] [address] [place] [address] Care Team Providers Care Order Dispatcher Chief Name Role Phone Amauri Pandey MD Unavailable Unavailabl Megan Leos MD Primary Care Provider [phone] Sharmila Davis APRN LOADER TECHNICIAN-C Unavailable Linda Block MD Unavailable [phone] Encounter Details Date Type Department Care Team (Late st Contact Info) Description 04/17/2014 Abstract [facility] Wraparound Facilitator [address] [place] [address] Amauri Pandey MD Social History Tobacco Use [...] st Contact Info) Description 09/25/2024 2:00 PM MOTORBOAT MECHANIC INBOARD/OUTBOARD Appointment [facility] [address] [place] [address] Zayra Powell, PROCUREMENT INSPECTOR [address] [place] [address] 10/16/2024 3:30 PM MOTORBOAT MECHANIC INBOARD/OUTBOARD Office Visit [facility] [address] [place] [phone] Brit Gonzáles MD [address] [place] [address] documented as of this encounter Procedures Procedure Name Priority Date/Time Associated Diagnosis Comments ECG 12-LEAD Routine 04/17/2014 8:23 AM CDT documented in this encounter Results * ECG 12 lead (04/17/2014 8:23 AM CDT) 04/17/2014 8:23 AM CDT Narrative [facility] - 04/18/2014 11:10 AM CDT ? [facility] ? [address] [place], [place] ??[address] ? Test Date: ?2014-04-17 Pat Name: ? OBIE SIMS ?Department: ?? 1 ? Room: ? Gender: ? M ?Cake Stripper: ?? hm : ?1955 ? Requested By: AMAURI PANDEY Order Number: [id number] ? Sage LANDRY: ?? Martin Perry ? Measurements Intervals ?[place] ? Rate: ? 52 ? P: ?0 [place]: ? 195 ?QRS: ?-17 QRSD: ? 122 ?T: ?122 QT: ? 503 ? QTc: ?471 ? Interpretive Statements SINUS BRADYCARDIA LEFT VENTRICULAR HYPERTROPHY AND ST-T CHANGE Procedure Note Eun Landry MD - 04/19/2019 [place] [address] [place] [address] Test Date: 2014-04-17 Pat Name: OBIE SIMS Department: 1 Room: Gender: M Cake Stripper: : 1955 Requested By: AMAURI PANDEY Order Number: [id number] Reading MD: Martin Perry Measurements Intervals [place] Rate: 52 P: 0 [place]: 195 QRS: -17 QRSD: 122 T: 122 QT: 503 QTc: 471 Interpretive Statements SINUS BRADYCARDIA LEFT VENTRICULAR HYPERTROPHY AND ST-T CHANGE us Generic Conversion Md LANDRY ECG ORDERABLES Final R esult [facility] documented in this encounter Visit Diagnoses Diagnosis Coronary atherosclerosis of [place] coronary artery documented in this encounter Care Teams Order Dispatcher Chief Relationship Specialty Start Date End Date Megan Infanet MD [address] [facility] [place] [phone] PCP - General FAMILY PRACTICE 04/06/16 Amauri Pandey MD [place] Bearing Press Machine Operator CARDIOVASCULAR DISEASE 04/06/16 12/28/23 Sharmila Davis, PAN PULLER, LOADER TECHNICIAN-C [address] [facility] [address] [place] [address] NURSE PRACTITIONER 01/04/17 04/03/24 Linda Block MD [address] [facility] [address] [place] [address] [place] Bearing Press Machine Operator CLINICAL CARDIAC ELECTROPHYSIOLOGY 02/08/17 04/12/23 documented as of this encounter
--- OUTSIDE RECORDS SUMMARY | 2024-09-03 20:47 | XMS_ITS | Encounter Summary ---
Author Organization [facility] Address [address] [place] [address]. [place] [address] [place] [address] Care Team Providers Care Figure Clerk Name Role Phone Unavailable Primary Care Provider Unavailabl e Encounter Details Date Type Department Care Team (Late st Contact Info) Description 04/17/2014 Abstract [facility] [address] [place] [address] Eun Tovar MD Social History [...] Contact Info) Description 09/25/2024 2:00 PM BENCH TECHNICIAN Appointment [facility] [address] [place] [address] Zayra Powell, GEOPHYSICAL E LOGGER [address] [place] [address] 10/16/2024 3:30 PM BENCH TECHNICIAN Office Visit [facility] [address] [phone] Brit Gonzáles MD [address] [place] [address] documented as of this encounter Visit Diagnoses Not on filedocumented in this encounter
--- OUTSIDE RECORDS SUMMARY | 2024-09-03 20:47 | XMS_ITS | Encounter Summary ---
Author Organization [facility] Address [address] [place] [address]. [place] [address] [place] [address] Care Team Providers Care Rent Control Office Manager Name Role Phone Unavailable Primary Care Provider Unavailabl e Encounter Details Date Type Department Care Team (Late st Contact Info) Description 09/20/2015 Scan [facility] [address] [place] [address] uEn Tovar MD Social History Tobacco Use Types [...] Contact Info) Description 09/25/2024 2:00 PM BICYCLE TECHNICIAN Appointment [facility] [address] [place] [address] Zayra Powell, GLASS CUT OFF TENDER [address] [place] [address] 10/16/2024 3:30 PM BICYCLE TECHNICIAN Office Visit [facility] [address] [phone] Brit Gonzáles MD [address] [place] [address] documented as of this encounter Visit Diagnoses Not on filedocumented in this encounter
--- OUTSIDE RECORDS SUMMARY | 2024-09-03 20:47 | XMS_ITS | Encounter Summary ---
Author Organization [facility] Address [facility]6 [facility] [place] [address] [place] [address] Care Team Providers Care Printing Plate Clerk Name Role Phone Piyush Pandey MD Unavailable UnavailMegan Rodriguez MD Primary Care Provider [phone] Sharmila Davis APRN, MEDICAL PROFESSIONALS-C Unavailable Linda Block MD Unavailable [phone] Encounter Details Date Type Department Care Team (Late st Contact Info) Description 04/19/[address] [facility] [address] [place] [address] Shubham Callahan MD [address] [place] [address] Social History Tobacco Use Types Packs/Day Years [...] st Contact Info) Description 09/25/2024 2:00 PM CAMP RECREATION SPECIALIST [facility]ointment [facility] [address] [place] [address] Zayra Powell FNP [address] [place] [address] 10/16/2024 3:30 PM CAMP RECREATION SPECIALIST Office Visit [facility] [address] [place] [address] Brit Gonzáles MD [address]19 [place] [address] documented as of this encounter Visit Diagnoses Not on filedocumented in this encounter Care Teams Printing Plate Clerk Relationship Specialty Start Date End Date Megan Infante MD [address] [place] [address] PCP - General FAMILY PRACTICE 04/06/16 Piyush Pandey MD [place] Extension Supervisor CARDIOVASCULAR DISEASE 04/06/16 12/28/23 Sharmila Davis APRN, MEDICAL PROFESSIONALS-C 619 [facility] 4P57 [place] [phone] NURSE PRACTITIONER 01/04/17 04/03/24 Linda Block MD 619 [facility] 4J87 [place] [address] [place] Extension Supervisor CLINICAL CARDIAC ELECTROPHYSIOLOGY 02/08/17 04/12/23 documented as of this encounter
--- OUTSIDE RECORDS SUMMARY | 2024-09-03 20:47 | XMS_ITS | Encounter Summary ---
Author Organization [facility] Address [facility] [place] [address] [place] [address] Care Team Providers Care Instrumentation Tech Name Role Phone Piyuhs Pandey MD Unavailable Unavailabl e Megan Infante MD Primary Care Provider [phone] Sharmila Davis APRN, SUPERVISOR INTERNATIONAL RESERVATIONS-C Unavailable Linda Block MD Unavailable [phone] Encounter Details Date Type Department Care Team (Late st Contact Info) Description 10/21/[address] [facility] [address] [place] [address] Linda Block MD 619 [address] [facility] [address] [place] [phone] Social History Tobacco Use Types Packs/Day Years [...] st Contact Info) Description 09/25/2024 2:00 PM BULLDOZER ENGINEER Appointment [facility] [address] [place] [address] Zayra Powell, NCA CERTIFIED CONCIERGE [address] [place] [address] 10/16/2024 3:30 PM BULLDOZER ENGINEER [facility] [address] [facility] [place] [address] Brit Gonzáles MD 619 [place] [address] documented as of this encounter Visit Diagnoses Diagnosis Chronic atrial fibrillation ([facility]/HCC HHS/HCC) Atrial fibrillation documented in this encounter Care Teams Instrumentation Tech Relationship Specialty Start Date End Date Megan Infante MD [address] [place] [phone] PCP - General FAMILY PRACTICE 04/06/16 Piyush Pandey MD [place] Panelbeater CARDIOVASCULAR DISEASE 04/06/16 12/28/23 Sharmila Davis APRN, SUPERVISOR INTERNATIONAL RESERVATIONS-C [address] [facility] 4P57 [place] [address] NURSE PRACTITIONER 01/04/17 04/03/24 Linda Block MD 619 [facility] [address] [place] [address] [place] Panelbeater CLINICAL CARDIAC ELECTROPHYSIOLOGY 02/08/17 04/12/23 documented as of this encounter
--- OUTSIDE RECORDS SUMMARY | 2024-09-03 20:47 | XMS_ITS | Encounter Summary ---
Author Organization [facility] Address [address] [place] [address]. [place] [address] [place] [address] Care Team Providers Care Glove Cuffer Name Role Phone Unavailable Primary Care Provider Unavailabl e Encounter Details Date Type Department Care Team (Late st Contact Info) Description 07/11/2015 Scan [facility] 619 [place] [address] Eun Tovar MD Social History [...] st Contact Info) Description 09/25/2024 2:00 PM STOVE POLISHER Appointment [facility] [address] [place] [address] Zayra Powell, TRACTOR SWEEPER DRIVER [address] [place] [address] 10/16/2024 3:30 PM STOVE POLISHER Office Visit [facility] [address] [phone] Brit Gonzáles MD 619 [place] [address] documented as of this encounter Visit Diagnoses Not on filedocumented in this encounter
--- OUTSIDE RECORDS SUMMARY | 2024-09-03 20:47 | XMS_ITS | Encounter Summary ---
Author Organization [facility] Address [facility]6 [facility] [address] [place] [address] Care Team Providers Care Business Services Coordinator Name Role Phone Piyush Pandey MD Unavailable UnavailMegan Rodriguez MD Primary Care Provider [phone] Sharmila Davis APRN, PRACTICE COORDINATOR-C Unavailable Linda Block MD Unavailable [phone] Encounter Details Date Type Department Care Team (Latest Contact Info) Description 03/02/2014 Abstract [facility] Medical Group Social History Tobacco Use Types [...] st Contact Info) Description 09/25/2024 2:00 PM GUT SNATCHER Appointment [facility] [address] [place] [address] Zayra Powell, CONTRACT DRIVER [address] [place] [address] 10/16/2024 3:30 PM GUT SNATCHER Office Visit [facility] [address] [place] [address] Brit Gonzáles MD 619 [place] [phone] documented as of this encounter Visit Diagnoses Not on filedocumented in this encounter Care Teams Business Services Coordinator Relationship Specialty Start Date End Date Megan Infante MD [address] [place] [address] PCP - General FAMILY PRACTICE 04/06/16 Piyush Pandey MD [place] Agricultural Economics Teacher CARDIOVASCULAR DISEASE 04/06/16 12/28/23 Sharmila Davis APRN, PRACTICE COORDINATOR-C 6[address] [facility] [address]P57 [place] [address] NURSE PRACTITIONER 01/04/17 04/03/24 Linda Block MD 619 E [facility] 4P[address] [place] [phone] [place] Agricultural Economics Teacher CLINICAL CARDIAC ELECTROPHYSIOLOGY 02/08/17 04/12/23 documented as of this encounter
--- OUTSIDE RECORDS SUMMARY | 2024-09-03 20:47 | XMS_ITS | Encounter Summary ---
Author Organization [facility] Address [address] [place] [address]. [place] [address] [place] [address] Care Team Providers Care Planer Offbearer Name Role Phone Unavailable Primary Care Provider Unavailabl e Encounter Details Date Type Department Care Team (Late st Contact Info) Description 10/23/2015 Abstract [facility] 619 [place] [address] Eun Landry MD Social History [...] Contact Info) Description 09/25/2024 2:00 PM RESIDENT SERVICES SUPERVISOR Appointment [facility] [address] [place] [address] Zayra Powell, FLEET OPERATIONS MANAGER [address] [place] [address] 10/16/2024 3:30 PM RESIDENT SERVICES SUPERVISOR Office Visit [facility] [address] [phone] Brit Gonzáles MD 619 [place] [address] documented as of this encounter Procedures Procedure Name Priority Date/Time Associated Diagnosis Comments PROTIME / PROTHROMBIN TIME Routine 10/23/2015 10:25 AM RESIDENT SERVICES SUPERVISOR documented in this encounter Results * PROTIME / PROTHROMBIN TIME (10/23/2015 10:25 AM RESIDENT SERVICES SUPERVISOR) PROTIME 14.1 11.6 - 14.3 SEC MEDINFORMATIX TO EPIC CONVERSION INR 1.1 0.9 - 1.1 MEDINFORMA TIX TO EPIC CONVERSION 10/23/2015 10:2 5 AM RESIDENT SERVICES SUPERVISOR 10/23/2015 10:25 AM RESIDENT SERVICES SUPERVISOR Narrative MEDINFORMATIX TO EPIC CONVERSION - 10/23/2015 10:42 AM RESIDENT SERVICES SUPERVISOR Reviewed by DEMETRIS Hansen ??2 2015 11:34:08:000AM us Generic Conversion Md [facility] Final R esult MEDINFORMATIX TO EPIC CONVERSION documented in this encounter Visit Diagnoses Not on filedocumented in this encounter
--- OUTSIDE RECORDS SUMMARY | 2024-09-03 20:47 | XMS_ITS | Encounter Summary ---
Author Organization [facility] Address [facility]6 [facility] [place] [address] [place] [address] Care Team Providers Care Head Irrigator Name Role Phone Piyush Pandey MD Unavailable UnavailMegan Rodriguez MD Primary Care Provider [phone] Sharmila Davis APRN, COMBATANT DIVER OFFICER-C Unavailable Linda Block MD Unavailable [phone] Encounter Details Date Type Department Care Team (Latest Contact Info) Description 12/07/2013 Abstract [facility] Medical Group Shubham Callahan MD [address] [place] [address] Social History Tobacco Use Types Packs/Day Years [...] Contact Info) Description 09/25/2024 2:00 PM FOOD CHEMIST Appointment [facility] [address] [place] [address] Zayra Powell FNP [address] [place] [address] 10/16/2024 3:30 PM FOOD CHEMIST Office Visit [facility] [address] [place] [address] Brit Gonzáles MD 619 [place] [address] documented as of this encounter Visit Diagnoses Not on filedocumented in this encounter Care Teams Head Irrigator Relationship Specialty Start Date End Date Megan Infante MD [address] [facility] [place] [address] PCP - General FAMILY PRACTICE 04/06/16 Piyush Pandey MD [place] Paper Rewinder Operator CARDIOVASCULAR DISEASE 04/06/16 12/28/23 Sharmila Davis APRN, COMBATANT DIVER OFFICER-C 619 [facility] 4P57 [place] [address] NURSE PRACTITIONER 01/04/17 04/03/24 Linda Block MD 619 [facility] [address] [phone] [place] Paper Rewinder Operator CLINICAL CARDIAC ELECTROPHYSIOLOGY 02/08/17 04/12/23 documented as of this encounter
--- OUTSIDE RECORDS SUMMARY | 2024-09-03 20:47 | XMS_ITS | Encounter Summary ---
Author Organization [facility] Address [address] [place] [address]. [place] [address] [place] [address] Care Team Providers Care Php Website Developer Name Role Phone Unavailable Primary Care Provider Unavailabl e Encounter Details Date Type Department Care Team (Late st Contact Info) Description 10/01/2015 Abstract [facility] 619 [place] [address] Eun Tovar MD Social History [...] Contact Info) Description 09/25/2024 2:00 PM STOVE INSTALLER Appointment [facility] [address] [place] [address] Zayra Powell, LAND DEVELOPER [address] [place] [address] 10/16/2024 3:30 PM STOVE INSTALLER Office Visit [facility] [address] [phone] Brit Gonzáles MD 619 [place] [address] documented as of this encounter Visit Diagnoses Not on filedocumented in this encounter
--- OUTSIDE RECORDS SUMMARY | 2024-09-03 20:47 | XMS_ITS | Encounter Summary ---
Author Organization [facility] Address [address] [place] [address]. [place] [address] [place] [address] Care Team Providers Care Mounting Inspector Name Role Phone Piyush Pandey MD Unavailable UnavailMegan Rodriguez MD Primary Care Provider [phone] Sharmila Davis APRN, SUPERVISOR SHED WORKERS-C Unavailable Linda Block MD Unavailable [phone] Encounter Details Date Type Department Care Team (Late st Contact Info) Description 08/22/[address] [facility] [address] [place] [address] Matias Mac MD [address] [place] [address] Social History Tobacco Use Types Packs/Day Years [...] Contact Info) Description 09/25/2024 2:00 PM GRADUATE ASSISTANT Appointment [facility] [address] [place] [address] Zayra Powell FNP [address] [place] [address] 10/16/2024 3:30 PM GRADUATE ASSISTANT Office Visit [facility] [place] [address] Brit Gonzáles MD 619 [place] [address] documented as of this encounter Visit Diagnoses Diagnosis Chest pain Chest pain, unspecified documented in this encounter Care Teams Mounting Inspector Relationship Specialty Start Date End Date Megan Infante MD [address] [place] [address] PCP - General FAMILY PRACTICE 04/06/16 Piyush Pandey MD [place] Alpine Patroller CARDIOVASCULAR DISEASE 04/06/16 12/28/23 Sharmila Davis, DANNY, SUPERVISOR SHED WORKERS-C 619 [facility] [address] [place] [address] NURSE PRACTITIONER 01/04/17 04/03/24 Linda Block MD 619 [facility] [address] [place] [address] [place] Alpine Patroller CLINICAL CARDIAC ELECTROPHYSIOLOGY 02/08/17 04/12/23 documented as of this encounter
--- OUTSIDE RECORDS SUMMARY | 2024-09-03 20:47 | XMS_ITS | Encounter Summary ---
Author Organization [facility] Address [address] [place] [address]. [place] [address] [place] [address] Care Team Providers Care Clinical Office Technician Name Role Phone Piyush Pandey MD, Amy E MD Primary Care Provider [phone] Encounter Details Date Type Department Care Team (Late st Contact Info) Description 02/02/2014 Abstract [facility] [address] [place] [address] Eun Tovar MD Social History Tobacco [...] Contact Info) Description 09/25/2024 2:00 PM METAL BONDER Appointment [facility] [address] [place] [address] Zayra Powell, CAN PILER [address] [place] [address] 10/16/2024 3:30 PM METAL BONDER Office Visit [facility] [address] [place] [phone] Brit Gonzáles MD [address] [place] [phone] documented as of this encounter Visit Diagnoses Not on filedocumented in this encounter Care Teams Clinical Office Technician Relationship Specialty Start Date End Date Megan Infante MD [address] [facility] [place] [address] PCP - General FAMILY PRACTICE 04/06/16 Piyush Pandey MD [place] Wafer Abrading Machine Tender CARDIOVASCULAR DISEASE 04/06/16 12/28/23 documented as of this encounter
--- OUTSIDE RECORDS SUMMARY | 2024-09-03 20:47 | XMS_ITS | Encounter Summary ---
Author Organization [facility] Address [facility] [place] [address] [place] [address] Care Team Providers Care House Decorator Name Role Phone Piyush Pandey MD Unavailable Unavailabl e Megan Infante MD Primary Care Provider [phone] Sharmila Davis APRN WILDLIFE OFFICER-C Unavailable Marlee Vega MD Unavailable [phone] Jeff Grace MD Unavailable Encounter Details Date Type Department Care Team (Late st Contact Info) Description 04/16/2012 Abstract [facility] [address] [place] [address] , Generic Conversion, Social History Tobacco Use [...] Contact Info) Description 09/25/2024 2:00 PM EDUCATION SALES CONSULTANT Appointment [facility] [address] [place] [address] Zayra Powell, JIGSAWYER [address] [place] [address] 10/16/2024 3:30 PM EDUCATION SALES CONSULTANT Office Visit [facility] [address] [place] [address] Brit Gonzáles MD 619 [place] [address] documented as of this encounter Procedures Procedure Name Priority Date/Time Associated Diagnosis Comments ECG 12-LEAD Routine 04/16/2012 9:18 AM CDT documented in this encounter Results * ECG 12 lead (04/16/2012 9:18 AM CDT) 04/16/2012 9:18 AM CDT Narrative [facility] - 04/16/2012 10:16 AM CDT ? [facility] ? [address] [place], [place] ??[address] ? Test Date: ?2012-04-16 Pat Name: ? OBIE BETHANY ?Department: ?? 1 ? Room: ? 0404AA Gender: ? M ?Cut Out Stitcher: ?? DLP : ?1955 ? Requested By: MARLEE VEGA Order Number: [id number] ?Sage LANDRY: ?? Armand Lentz ? Measurements Intervals ?[place] ? Rate: ? 67 ? P: ?11 [place]: ? 126 ?QRS: ?0 QRSD: ? 104 ?T: ?110 QT: ? 430 ? QTc: ?454 ? Interpretive Statements Normal sinus rhythm Minimal voltage criteria for LVH, may be normal variant Nonspecific ST and T wave abnormality Abnormal ECG Procedure Note Eun Landry MD - 04/19/2019 [facility] [address] [place] [address] Test Date: 2012-04-16 Pat Name: OBIE SIMS Department: 1 Room: [facility] Gender: M Cut Out Stitcher: DLP : 1955 Requested By: MARLEE VEGA Order Number: [id number] Reading MD: Armand Lentz Measurements Intervals [place] Rate: 67 P: 11 [place]: 126 QRS: 0 QRSD: 104 T: 110 QT: 430 QTc: 454 Interpretive Statements Normal sinus rhythm Minimal voltage criteria for LVH, may be normal variant Nonspecific ST and T wave abnormality Abnormal ECG us Generic Conversion Md LANDRY ECG ORDERABLES Final R esult [facility] documented in this encounter Visit Diagnoses Not on filedocumented in this encounter Care Teams House Decorator Relationship Specialty Start Date End Date Megan Infante MD [address] [facility] [place] [phone] PCP - General FAMILY PRACTICE 04/06/16 Piyush Pandey MD [place] Manager Business Process CARDIOVASCULAR DISEASE 04/06/16 12/28/23 Sharmila Davis APRN, WILDLIFE OFFICER-C [address] [facility] [facility] [address] [place] [phone] NURSE PRACTITIONER 01/04/17 04/03/24 Marlee Vega MD [address] [phone] [place] Manager Business Process CLINICAL CARDIAC ELECTROPHYSIOLOGY 02/08/17 04/12/23 Jeff Grace MD [address] [facility] [address] [phone] Consulting Physician INTERNAL MEDICINE 02/20/19 3 documented as of this encounter
--- OUTSIDE RECORDS SUMMARY | 2024-09-03 20:47 | XMS_ITS | Encounter Summary ---
Author Organization [facility] Address [address] [place] [address]. [place] [address] [place] [address] Care Team Providers Care Cash Processing Specialist Name Role Phone Unavailable Primary Care Provider Unavailabl e Encounter Details Date Type Department Care Team (Late st Contact Info) Description 10/27/2012 Abstract [facility] AT [address] [address] Eun Landry MD Social History [...] st Contact Info) Description 09/25/2024 2:00 PM EQUIPMENT WASHER Appointment [facility] [address] [place] [address] Zayra Powell, LENS GAUGER [address] [place] [address] 10/16/2024 3:30 PM EQUIPMENT WASHER Office Visit [facility] [address] [phone] Brit Gonzáles MD [address] [place] [address] documented as of this encounter Procedures Procedure Name Priority Date/Time Associated Diagnosis Comments EXTERNAL EJECTION FRACTION Routine 10/27/2012 12:00 AM EQUIPMENT WASHER documented in this encounter Results * EXTERNAL EJECTION FRACTION (10/27/2012 12:00 AM EQUIPMENT WASHER) EJECTION FRACTION [facility] Anatomical Region Laterality Modality Other 10/27/2012 10/27/2012 Narrative 10/27/2012 12:00 AM EQUIPMENT WASHER transthoracic echo, Piyush Pandey M.D. us Generic Conversion Md LANDR[facility] OTHER Final R esult documented in this encounter Visit Diagnoses Not on filedocumented in this encounter
--- OUTSIDE RECORDS SUMMARY | 2024-09-03 20:47 | XMS_ITS | Encounter Summary ---
Author Organization [facility] Address [address] [place] [address]. [place] [address] [place] [address] Care Team Providers Care Golf Course Designer Name Role Phone Unavailable Primary Care Provider Unavailabl e Encounter Details Date Type Department Care Team (Late st Contact Info) Description 09/20/2015 Abstract [facility] [address] [place] [address] Eun Tovar MD Social History [...] st Contact Info) Description 09/25/2024 2:00 PM RIPPER OPERATOR Appointment [facility] [address] [place] [address] Zayra Powell, NUCLEAR FUELS RESEARCH ENGINEER [address] [place] [address] 10/16/2024 3:30 PM RIPPER OPERATOR Office Visit [facility] [address] [phone] Brit Gonzáles MD 6[address] [place] [address] documented as of this encounter Visit Diagnoses Not on filedocumented in this encounter
--- OUTSIDE RECORDS SUMMARY | 2024-09-03 20:47 | XMS_ITS | Encounter Summary ---
Author Organization [facility] Address [address] [place] [address]. [place] [address] [place] [address] Care Team Providers Care Animal Nutritionist Name Role Phone Unavailable Primary Care Provider Unavailabl e Encounter Details Date Type Department Care Team (Late st Contact Info) Description 06/21/2015 Abstract [facility] 619 [place] [address] Eun Tovar MD Social History [...] Contact Info) Description 09/25/2024 2:00 PM HAND CEMENTER Appointment [facility] [address] [place] [address] Zayra Powell, MASH FILTER CLOTH CHANGER [address] [place] [address] 10/16/2024 3:30 PM HAND CEMENTER Office Visit [facility] [address] [phone] Brit Gonzáles MD [address] [place] [address] documented as of this encounter Visit Diagnoses Not on filedocumented in this encounter
--- OUTSIDE RECORDS SUMMARY | 2024-09-03 20:47 | XMS_ITS | Encounter Summary ---
Author Organization [facility] Address [address] [place] [address]. [place] [address] [place] [address] Care Team Providers Care Concrete Buster Operator Name Role Phone Piyush Pandey MD Unavailable UnavailMegan Rodriguez MD Primary Care Provider [phone] Sharmila Davis APRN, ASSISTANT SPA MANAGER-C Unavailable [phone] Linda Block MD Unavailable [phone] Encounter Details Date Type Department Care Team (Late st Contact Info) Description 06/04/[address] [facility] [address] [place] [address] Matias Mac MD [address] [place] [address] Social History Tobacco Use Types Packs/Day Years [...] Contact Info) Description 09/25/2024 2:00 PM MANAGER RESIDENTIAL Appointment [facility] [address] [place] [address] Zayra Powell FNP [address] [place] [address] 10/16/2024 3:30 PM MANAGER RESIDENTIAL Office Visit [facility] [place] [phone] Brit Gonzáles MD [address] [place] [address] documented as of this encounter Visit Diagnoses Diagnosis Cough documented in this encounter Care Teams Concrete Buster Operator Relationship Specialty Start Date End Date Megan Infante MD [address] [place] [phone] PCP - General FAMILY PRACTICE 04/06/16 Piyush Pandey MD [place] Quality Control Tech Raw Materials CARDIOVASCULAR DISEASE 04/06/16 12/28/23 Sharmila Davis, DOCUMENTATION CLERK, ASSISTANT SPA MANAGER-C 619 [facility] [address] [place] [phone] NURSE PRACTITIONER 01/04/17 04/03/24 Linda Block MD 619 [facility] [address] [place] [phone] [place] Quality Control Tech Raw Materials CLINICAL CARDIAC ELECTROPHYSIOLOGY 02/08/17 04/12/23 documented as of this encounter
--- OUTSIDE RECORDS SUMMARY | 2024-09-03 20:47 | XMS_ITS | Encounter Summary ---
Author Organization [facility] Address [facility] [place] [address] [place] [address] Care Team Providers Care Health Policy Analyst Name Role Phone Piyush Pandey MD Unavailable UnavailMegan Rodriguez MD Primary Care Provider [phone] Sharmila Davis APRN, CRESTER-C Unavailable Linda Block MD Unavailable [phone] Encounter Details Date Type Department Care Team (Late st Contact Info) Description 02/19/[address] [facility] [address] [place] [address] Shubham Callahan MD [address] [place] [address] Social History Tobacco Use Types Packs/Day Years [...] st Contact Info) Description 09/25/2024 2:[address] [facility] [address] [place] [address] Zayra Powell FNP [address] [place] [address] 10/16/2024 3:30 PM ECD Office Visit [facility] [address] [place] [address] Brit Gonzáles MD 619 [place] [address] documented as of this encounter Visit Diagnoses Diagnosis Nonspecific (abnormal) findings on radiological and other examination of lung field documented in this encounter Care Teams Health Policy Analyst Relationship Specialty Start Date End Date Megan Infante MD [address] [place] [address] PCP - General FAMILY PRACTICE 04/06/16 Piyush Pandey MD [place] Digester CARDIOVASCULAR DISEASE 04/06/16 12/28/23 Sharmila Davis, GIVING OFFICER, CRESTER-C 619 [facility] 47 [place] [phone] NURSE PRACTITIONER 01/04/17 04/03/24 Linda Block MD 619 [facility] 47 [place] [address] [place] Digester CLINICAL CARDIAC ELECTROPHYSIOLOGY 02/08/17 04/12/23 documented as of this encounter
--- OUTSIDE RECORDS SUMMARY | 2024-09-03 20:47 | XMS_ITS | Encounter Summary ---
Author Organization [facility] Address [facility] [place] [address] [place] [address] Care Team Providers Care Boilermaker Loftsman Name Role Phone Piyush Pandey MD Unavailable UnavailMegan Rodriguez MD Primary Care Provider [phone] Sharmila Davis APRN, LIFE TRAINER-C Unavailable Linda Block MD Unavailable [phone] Encounter Details Date Type Department Care Team (Latest Contact Info) Description 02/19/2014 Abstract [facility] Shubham Callahan MD [address] [place] [address] Social History Tobacco Use Types Packs/Day Years [...] Contact Info) Description 09/25/2024 2:00 PM DOMESTIC FREIGHT FORWARDER Appointment [facility] [address] [place] [address] Zayra Powell FNP [address] [place] [address] 10/16/2024 3:30 PM DOMESTIC FREIGHT FORWARDER Office Visit [facility] [address] [place] [address] Brit Gonzáles MD 619 [place] [address] documented as of this encounter Visit Diagnoses Not on filedocumented in this encounter Care Teams Boilermaker Loftsman Relationship Specialty Start Date End Date Mgean Infante MD [address] [facility] [place] [address] PCP - General FAMILY PRACTICE 04/06/16 Piyush Pandey MD [place] Lunchroom Operator CARDIOVASCULAR DISEASE 04/06/16 12/28/23 Sharmila Davis APRN, LIFE TRAINER-C 619 [facility] [address] [place] [address] NURSE PRACTITIONER 01/04/17 04/03/24 Linda Block MD 619 [facility] [address] [phone] [place] Lunchroom Operator CLINICAL CARDIAC ELECTROPHYSIOLOGY 02/08/17 04/12/23 documented as of this encounter
--- OUTSIDE RECORDS SUMMARY | 2024-09-03 20:47 | XMS_ITS | Encounter Summary ---
Author Organization [facility] Address [address] [place] [address]. [place] [address] [place] [address] Care Team Providers Care Senior Product Designer Name Role Phone Unavailable Primary Care Provider Unavailabl e Encounter Details Date Type Department Care Team (Late st Contact Info) Description 10/16/2013 Abstract [facility] 619 [place] [address] Eun Tovar MD Social History [...] st Contact Info) Description 09/25/2024 2:00 PM DRAWER LINER Appointment [facility] [address] [place] [address] Zayra Powell, AUTOMOTIVE GLASS MECHANIC [address] [place] [address] 10/16/2024 3:30 PM DRAWER LINER Office Visit [facility] [address] [phone] Brit Gonzáles MD 619 [place] [address] documented as of this encounter Visit Diagnoses Not on filedocumented in this encounter
--- OUTSIDE RECORDS SUMMARY | 2024-09-03 20:47 | XMS_ITS | Encounter Summary ---
Author Organization [facility] Address [address] [place] [address]. [place] [address] [place] [address] Care Team Providers Care Anode Worker Name Role Phone Unavailable Primary Care Provider Unavailabl e Encounter Details Date Type Department Care Team (Late st Contact Info) Description 08/08/2015 Abstract [facility] 619 [place] [address] Eun Landry MD Social History [...] Contact Info) Description 09/25/2024 2:00 PM MANAGER INTERFACE Appointment [facility] [address] [place] [address] Zayra Powell, FOOD MOBILE DRIVER [address] [place] [address] 10/16/2024 3:30 PM MANAGER INTERFACE Office Visit [facility] [address] [phone] Brit Gonzáles MD 619 [place] [address] documented as of this encounter Procedures Procedure Name Priority Date/Time Associated Diagnosis Comments EXTERNAL EJECTION FRACTION Routine 08/08/2015 12:00 AM MANAGER INTERFACE documented in this encounter Results * EXTERNAL EJECTION FRACTION (08/08/2015 12:00 AM MANAGER INTERFACE) EJECTION FRACTION 40 HS HS LAB ORDERS [...] Other 08/08/2015 08/08/2015 Narrative 08/08/2015 12:00 AM MANAGER INTERFACE NEMO, us Generic Conversion Md LANDRY OTHER Final R esult documented in this encounter Visit Diagnoses Not on filedocumented in this encounter
--- OUTSIDE RECORDS SUMMARY | 2024-09-03 20:47 | XMS_ITS | Encounter Summary ---
Author Organization [facility] Address [address] [place] [address]. [place] [address] [place] [address] Care Team Providers Care Injection Moulding Machine Operator Name Role Phone Piyush Pandey MD Unavailable Unavailabl e Megan Infante MD Primary Care Provider [phone] Sharmila Davis APRN, LOG COOKER-C Unavailable Linda Block MD Unavailable [phone] Encounter Details Date Type Department Care Team (Late st Contact Info) Description 05/23/2014 Abstract [facility] Unit [address] [place], [place] [address] Paul Conklin MD [address] [place], [place] [address] Social History Tobacco Use Types Packs/Day Years [...] Contact Info) Description 09/25/2024 2:00 PM AIRLINE STATION AGENT Appointment [facility] [address] [place] [address] Zayra Powell FNP [address] [place] [address] 10/16/2024 3:30 PM AIRLINE STATION AGENT Office Visit [facility] [address] [place] [address] [place] [address] Brit Gonzáles MD 6[address] [place] [address] documented as of this encounter Procedures Procedure Name Priority Date/Time Associated Diagnosis Comments ECG 12-LEAD Routine 05/23/2014 1:18 PM CDT documented in this encounter Results * ECG 12 lead (05/23/2014 1:18 PM CDT) 05/23/2014 1:18 PM CDT Narrative [facility] - 05/23/2014 10:53 PM CDT ? [facility] ? [address] [place], [place] ??[address] ? Test Date: ?2014-05-23 Pat Name: ? OBIE SIMS ?Department: ?? 1 ? Room: ? CRU0 Gender: ? M ?Small Brake Form Operator: ?? TJ : ?1955 ? Requested By: PAUL CONKLIN Order Number: [id number] ? Reading : ?? Shaji Aguilera ? Measurements Intervals ?[place] ? Rate: ? 148 ?P: ?23 PA: ? 213 ?QRS: ?0 QRSD: ? 25 ? T: ?214 QT: ? 190 ? QTc: ?298 ? Interpretive Statements ELECTRONIC ATRIAL PACEMAKER ABNORMAL RHYTHM ECG Procedure Note Eun Landry MD - 04/19/2019 [facility] [address] [place] [address] Test Date: 2014-05-23 Pat Name: OBIE SIMS Department: 1 Room: [facility] Gender: M Small Brake Form Operator: TJ : 1955 Requested By: PAUL CONKLIN Order Number: [id number] Reading MD: Shaji Aguilera Measurements Intervals [place] Rate: 148 P: 23 PA: 213 QRS: 0 QRSD: 25 T: 214 QT: 190 QTc: 298 Interpretive Statements ELECTRONIC ATRIAL PACEMAKER ABNORMAL RHYTHM ECG us Generic Conversion Md LANDRY ECG ORDERABLES Final R esult [facility] documented in this encounter Visit Diagnoses Diagnosis 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 documented in this encounter Care Teams Injection Moulding Machine Operator Relationship Specialty Start Date End Date Megan Infante MD [address] [facility] [place] [address] PCP - General FAMILY PRACTICE 04/06/16 Piyush Pandey MD [place] Oncology Technician CARDIOVASCULAR DISEASE 04/06/16 12/28/23 Sharmila Davis, SLOT FLOORPERSON, LOG COOKER-C 619 [address] [facility] [address] [place] [address] NURSE PRACTITIONER 01/04/17 04/03/24 Linda Block MD 6[address] [facility] [address] [place] [address] [place] Oncology Technician CLINICAL CARDIAC ELECTROPHYSIOLOGY 02/08/17 04/12/23 documented as of this encounter
--- OUTSIDE RECORDS SUMMARY | 2024-09-03 20:47 | XMS_ITS | Encounter Summary ---
Author Organization [facility] Address [facility] [place] [address] [place] [address] Care Team Providers Care Branch Associate Teller Name Role Phone Piyush Pandey MD Unavailable Unavailabl e Megan Infante MD Primary Care Provider [phone] Sharmila Davis APRN, PORTFOLIO SPECIALIST-C Unavailable Linda Block MD Unavailable [phone] Encounter Details Date Type Department Care Team (Late st Contact Info) Description 08/08/2015 Abstract [facility] [address] [place] [address] Linda Block MD 6[address] [facility] [address] [place] [address] Social History Tobacco Use Types Packs/Day Years [...] st Contact Info) Description 09/25/2024 2:00 PM INTERNAL SECURITY MANAGER Appointment [facility] [address] [place] [address] Zayra Powell, WEATHER REPORTER [address] [place] [address] 10/16/2024 3:30 PM INTERNAL SECURITY MANAGER [facility] 1215 [facility] [place] [phone] Brit Gonzáles MD 619 [place] [address] documented as of this encounter Visit Diagnoses Diagnosis Paroxysmal atrial fibrillation ([facility]/HCC [facility]/HCC) Atrial fibrillation documented in this encounter Care Teams Branch Associate Teller Relationship Specialty Start Date End Date Megan Infante MD [address] [place] [address] PCP - General FAMILY PRACTICE 04/06/16 Piyush Pandey MD [place] Parachute Crown Sewer CARDIOVASCULAR DISEASE 04/06/16 12/28/23 Sharmila Davis APRN, PORTFOLIO SPECIALIST-C 619 [facility] [address] [place] [address] NURSE PRACTITIONER 01/04/17 04/03/24 Linda Block MD 619 [facility] [address] [place] [address] [place] Crown Sewer CLINICAL CARDIAC ELECTROPHYSIOLOGY 02/08/17 04/12/23 documented as of this encounter
--- OUTSIDE RECORDS SUMMARY | 2024-09-03 20:47 | XMS_ITS | Encounter Summary ---
Author Organization [facility] Address [address] [place] [address]. [place] [address] [place] [address] Care Team Providers Care Fiber Picker Name Role Phone Unavailable Primary Care Provider Unavailabl e Encounter Details Date Type Department Care Team (Late st Contact Info) Description 11/30/2013 Abstract [facility] 619 [place] [address] Eun Tovar MD Social History [...] Contact Info) Description 09/25/2024 2:00 PM CUTTER OUT Appointment [facility] [address] [place] [address] Zayra Powell, ROOM SERVER [address] [place] [address] 10/16/2024 3:30 PM CUTTER OUT Office Visit [facility] [address] [phone] Brit Gonzáles MD 619 [place] [address] documented as of this encounter Visit Diagnoses Not on filedocumented in this encounter
--- OUTSIDE RECORDS SUMMARY | 2024-09-03 20:47 | XMS_ITS | Encounter Summary ---
Author Organization [facility] Address [address] [place] [address]. [place] [address] [place] [address] Care Team Providers Care Armored Car Messenger Name Role Phone Unavailable Primary Care Provider Unavailabl e Encounter Details Date Type Department Care Team (Late st Contact Info) Description 11/21/2013 Abstract [facility] [address] [place] [address] Eun Tovar MD Social History [...] Contact Info) Description 09/25/2024 2:00 PM GAS TORCH BRAZIER Appointment [facility] [address] [place] [address] Zayra Powell, [employer] [address] [place] [address] 10/16/2024 3:30 PM GAS TORCH BRAZIER Office Visit [facility] [address] [phone] Brit Gonzáles MD 6[address] [place] [address] documented as of this encounter Visit Diagnoses Not on filedocumented in this encounter
--- OUTSIDE RECORDS SUMMARY | 2024-09-03 20:47 | XMS_ITS | Encounter Summary ---
Author Organization [facility] Address [address] [place] [address]. [place] [address] [place] [address] Care Team Providers Care Accounting Support Specialist Name Role Phone Unavailable Primary Care Provider Unavailabl e Encounter Details Date Type Department Care Team (Late st Contact Info) Description 07/05/2014 Scan [facility] [address] [place] [address] Eun Tovar MD Social History [...] Contact Info) Description 09/25/2024 2:00 PM CHANNEL PARTNERS Appointment [facility] [address] [place] [address] Zayra Powell, FLOOR COVERING INSTALLER [address] [place] [address] 10/16/2024 3:30 PM CHANNEL PARTNERS Office Visit [facility] [address] [phone] Brit Gonzáels MD 619 [place] [address] documented as of this encounter Visit Diagnoses Not on filedocumented in this encounter
--- OUTSIDE RECORDS SUMMARY | 2024-09-03 20:47 | XMS_ITS | Encounter Summary ---
Author Organization [facility] Address [address] [place] [address]. [place] [address] [place] [address] Care Team Providers Care Sustainability Coach Name Role Phone Unavailable Primary Care Provider Unavailabl e Encounter Details Date Type Department Care Team (Late st Contact Info) Description 10/23/2015 Scan [facility] 6[address] [place] [address] Eun Tovar MD Social History [...] st Contact Info) Description 09/25/2024 2:00 PM INSOLE TACKER Appointment [facility] [address] [place] [address] Zayra Powell, FRONT MAKER LOCKSTITCH [address] [place] [address] 10/16/2024 3:30 PM INSOLE TACKER Office Visit [facility] [address] [phone] Brit Gonzáles MD 619 [place] [address] documented as of this encounter Visit Diagnoses Not on filedocumented in this encounter
--- OUTSIDE RECORDS SUMMARY | 2024-09-03 20:47 | XMS_ITS | Encounter Summary ---
Author Organization [facility] Address Critical access hospital6 [place] [address] [place] [address] Care Team Providers Care Environmental Education Specialist Name Role Phone Piyush Pandey MD Unavailable Unavailabl e Megan Infante MD Primary Care Provider [phone] Sharmila Davis APRN, WOOL SUPPLIER-C Unavailable Linda Block MD Unavailable [phone] Encounter Details Date Type Department Care Team (Late st Contact Info) Description 05/22/[address] [facility] [address] [place] [address] Paul Conklin MD [address] [place], [place] [address] Social History Tobacco Use Types Packs/Day Years [...] st Contact Info) Description 09/25/2024 2:00 PM FITTING ROOM ATTENDANT Appointment [facility] [address] [place] [address] Zayra Powell FNP [address] [place] [address] 10/16/2024 3:30 PM FITTING ROOM ATTENDANT [facility] [address] [place] [address] [place] [phone] Brit Gonzáles MD 6[address] [place] [address] documented as of this encounter Procedures Procedure Name Priority Date/Time Associated Diagnosis Comments ECG 12-LEAD Routine 05/22/2014 12:26 PM CDT documented in this encounter Results * ECG 12 lead (05/22/2014 12:26 PM CDT) 05/22/2014 12:2 6 PM CDT Narrative [facility] - 05/23/2014 8:55 AM CDT ? [facility] ? [address] [place], [place] ??[address] ? Test Date: ?2014-05-22 Pat Name: ? OBIE SIMS ?Department: ?? 1 ? Room: ? Gender: ? M ?Certified Art Therapist: ?? sb : ?1955 ? Requested By: PAUL CONKLIN Order Number: [id number] ? Reading : ?? Shaji Aguilera ? Measurements Intervals ?[place] ? Rate: ? 54 ? P: ?5 WY: ? 199 ?QRS: ?-10 QRSD: ? 125 ?T: ?134 QT: ? 469 ? QTc: ?447 ? Interpretive Statements SINUS BRADYCARDIA LEFT VENTRICULAR HYPERTROPHY AND ST-T CHANGE Procedure Note Eun Landry MD - 04/19/2019 [facility] [address] [place] [address] Test Date: 2014-05-22 Pat Name: OBIE SIMS Department: 1 Room: Gender: M Certified Art Therapist: sb : 1955 Requested By: PAUL CONKLIN Order Number: [id number] Reading MD: Shaji Aguilera Measurements Intervals [place] Rate: 54 P: 5 WY: 199 QRS: -10 QRSD: 125 T: 134 QT: 469 QTc: 447 Interpretive Statements SINUS BRADYCARDIA LEFT VENTRICULAR HYPERTROPHY AND ST-T CHANGE us Generic Conversion Md LANDRY ECG ORDERABLES Final R esult [facility] documented in this encounter Visit Diagnoses Diagnosis Other specified pre-operative examination documented in this encounter Care Teams Environmental Education Specialist Relationship Specialty Start Date End Date Megan Infante MD [address] [facility] [place] [address] PCP - General FAMILY PRACTICE 04/06/16 Piyush Pandey MD [place] Hollow Tile Partition Erector CARDIOVASCULAR DISEASE 04/06/16 12/28/23 Sharmila Davis APRN, WOOL SUPPLIER-C [address] [facility] [address] [place] [address] NURSE PRACTITIONER 01/04/17 04/03/24 Linda Block MD [address] [facility] [address] [place] [address] [place] Hollow Tile Partition Erector CLINICAL CARDIAC ELECTROPHYSIOLOGY 02/08/17 04/12/23 documented as of this encounter
--- OUTSIDE RECORDS SUMMARY | 2024-09-03 20:47 | XMS_ITS | Encounter Summary ---
Author Organization [facility] Address [address] [place] [address]. [place] [address] [place] [address] Care Team Providers Care Electro Optics Engineer Name Role Phone Unavailable Primary Care Provider Unavailabl e Encounter Details Date Type Department Care Team (Late st Contact Info) Description 08/08/2015 Scan [facility] [place] [address] [place] [address] Eun Tovar MD Social History [...] st Contact Info) Description 09/25/2024 2:00 PM EXPANDED FUNCTION DENTAL ASSISTANT Appointment [facility] [address] [place] [address] Zayra Powell, SENIOR TECHNICAL SPECIALIST [address] [place] [address] 10/16/2024 3:30 PM EXPANDED FUNCTION DENTAL ASSISTANT Office Visit [facility] [address] [phone] Brit Gonzáles MD [address] [place] [address] documented as of this encounter Visit Diagnoses Not on filedocumented in this encounter
--- OUTSIDE RECORDS SUMMARY | 2024-09-03 20:47 | XMS_ITS | Encounter Summary ---
Author Organization [facility] Address [address] [place] [address]. [place] [address] [place] [address] Care Team Providers Care Kelp Gatherer Name Role Phone Unavailable Primary Care Provider Unavailabl e Encounter Details Date Type Department Care Team (Late st Contact Info) Description 10/16/2013 Scan [facility] [address] [place] [address] Eun Tovar MD Social History [...] st Contact Info) Description 09/25/2024 2:00 PM SHOT PEEN OPERATOR Appointment [facility] [address] [place] [address] Zayra Powell, PIPE COREMAKER [address] [place] [address] 10/16/2024 3:30 PM SHOT PEEN OPERATOR Office Visit [facility] [address] [address] Brit Gonzáles MD [address] [place] [address] documented as of this encounter Visit Diagnoses Not on filedocumented in this encounter
--- OUTSIDE RECORDS SUMMARY | 2024-09-03 20:47 | XMS_ITS | Encounter Summary ---
Author Organization [facility] Address [address] [place] [address]. [place] [address] [place] [address] Care Team Providers Care Dispatch Specialist Name Role Phone Unavailable Primary Care Provider Unavailabl e Encounter Details Date Type Department Care Team (Late st Contact Info) Description 12/07/2013 Abstract [facility] AT [address] [address] Eun Tovar MD Social History [...] st Contact Info) Description 09/25/2024 2:00 PM STUDENT AFFAIRS DEAN Appointment [facility] [address] [place] [address] Zayra Powell, SUBSTANCE ABUSE SERVICES DIRECTOR [address] [place] [address] 10/16/2024 3:30 PM STUDENT AFFAIRS DEAN Office Visit [facility] [address] [phone] Brit Gonzáles MD [address] [place] [address] documented as of this encounter Visit Diagnoses Not on filedocumented in this encounter
--- OUTSIDE RECORDS SUMMARY | 2024-09-03 20:47 | XMS_ITS | Encounter Summary ---
Author Organization [facility] Address [address] [place] [address]. [place] [address] [place] [address] Care Team Providers Care Educational Speech Language Clinician Name Role Phone Piyush Pandey MD, Amy E MD Primary Care Provider Encounter Details Date Type Department Care Team (Late st Contact Info) Description 02/02/2014 Scan [facility] [place] [facility] AT [address] [address] Eun Tovar MD Social History [...] st Contact Info) Description 09/25/2024 2:00 PM FUR OPERATOR Appointment [facility] [address] [place] [address] Zayra Powell, CLIENT HR MANAGER [address] [place] [address] 10/16/2024 3:30 PM FUR OPERATOR Office Visit [facility] [address] [place] [phone] Brit Gonzáles MD [address] [place] [address] documented as of this encounter Visit Diagnoses Not on filedocumented in this encounter Care Teams Educational Speech Language Clinician Relationship Specialty Start Date End Date Megan Infante MD [address] [facility] [place] [address] PCP - General FAMILY PRACTICE 04/06/16 Piyush Pandey MD [place] Ems Driver CARDIOVASCULAR DISEASE 04/06/16 12/28/23 documented as of this encounter
--- OUTSIDE RECORDS SUMMARY | 2024-09-03 20:47 | XMS_ITS | Encounter Summary ---
Author Organization [facility] Address [address] [place] [address]. [place] [address] [place] [address] Care Team Providers Care Vp Sales Name Role Phone Unavailable Primary Care Provider Unavailabl e Encounter Details Date Type Department Care Team (Late st Contact Info) Description 03/29/2014 Abstract [facility] [address] [place] [address] Eun Tovar MD Social History [...] st Contact Info) Description 09/25/2024 2:00 PM CONCRETE SAW OPERATOR Appointment [facility] [address] [place] [address] Zayra Powell, AGED OR DISABLED CARER [address] [place] [address] 10/16/2024 3:30 PM CONCRETE SAW OPERATOR Office Visit [facility] [address] [phone] Brit Gonzáles MD [address] [place] [address] documented as of this encounter Visit Diagnoses Not on filedocumented in this encounter
--- OUTSIDE RECORDS SUMMARY | 2024-09-03 20:47 | XMS_ITS | Encounter Summary ---
Author Organization [facility] Address [address] [place] [address]. [place] [address] [place] [address] Care Team Providers Care Hog Buyer Name Role Phone Unavailable Primary Care Provider Unavailabl e Encounter Details Date Type Department Care Team (Late st Contact Info) Description 10/02/2015 Abstract [facility] [address] [place] [address] Eun Tovar MD Social History [...] Contact Info) Description 09/25/2024 2:00 PM GUEST SERVICE TEAM LEADER Appointment [facility] [address] [place] [address] Zayra Powell, CAR RUNNER [address] [place] [address] 10/16/2024 3:30 PM GUEST SERVICE TEAM LEADER Office Visit [facility] [address] [phone] Brit Gonzáles MD [address] [place] [address] documented as of this encounter Procedures Procedure Name Priority Date/Time Associated Diagnosis Comments ECG 12-LEAD Routine 10/02/2015 6:08 AM GUEST SERVICE TEAM LEADER documented in this encounter Results * ECG 12 lead (10/02/2015 6:08 AM GUEST SERVICE TEAM LEADER) 10/02/2015 6:08 AM GUEST SERVICE TEAM LEADER Narrative [facility] - 10/02/2015 1:18 PM GUEST SERVICE TEAM LEADER ? [facility] ? [address] [place], [place] ??[address] ? Test Date: ?2015-10-02 Pat Name: ? OBIE BETHANY ?Department: ?? 1 ? Room: ? 0455 Gender: ? M ?Outpatient Therapist: ?? sg : ?1955 ? Requested By: MARLEE VEGA Order Number: [id number] ? Reading MD: ?? Martin Perry ? Measurements Intervals ?[place] ? Rate: ? 79 ? P: ?17 RI: ? 203 ?QRS: ?-18 QRSD: ? 127 ?T: ?141 QT: ? 416 ? QTc: ?478 ? Interpretive Statements SINUS RHYTHM LEFT VENTRICULAR HYPERTROPHY AND ST-T CHANGE T SERVICE TEAM LEADER Procedure Note , Eun Tejeda MD - 04/18/2019 [place] [address] [place] [address] Test Date: 2015-10-02 Pat Name: OBIE SIMS Department: 1 Room: [facility] Gender: M Outpatient Therapist: : 1955 Requested By: MARLEE VEGA Order Number: [id number] Reading MD: Martin Perry Measurements Intervals [place] Rate: 79 P: 17 RI: 203 QRS: -18 QRSD: 127 T: 141 QT: 416 QTc: 478 Interpretive Statements SINUS RHYTHM LEFT VENTRICULAR HYPERTROPHY AND ST-T CHANGE T SERVICE TEAM LEADER us Generic Nikhil Tovar MD ECG ORDERABLES Final R esult [facility] documented in this encounter Visit Diagnoses Not on filedocumented in this encounter
--- OUTSIDE RECORDS SUMMARY | 2024-09-03 20:47 | XMS_ITS | Encounter Summary ---
Author Organization [facility] Address [address] [place] [address]. [place] [address] [place] [address] Care Team Providers Care Spirits Model Name Role Phone Unavailable Primary Care Provider Unavailabl e Encounter Details Date Type Department Care Team (Late st Contact Info) Description 09/28/2013 Abstract [facility] AT [address] [address] Piyush Pandey MD Social History [...] st Contact Info) Description 09/25/2024 2:00 PM ASSOCIATE WEB DEVELOPER Appointment [facility] [address] [place] [address] Zayra Powell, DIRECTOR SEMICONDUCTOR [address] [place] [address] 10/16/2024 3:30 PM ASSOCIATE WEB DEVELOPER Office Visit [facility] [address] [place] [address] Brit Gonzáles MD [address] [place] [address] documented as of this encounter Procedures Procedure Name Priority Date/Time Associated Diagnosis Comments THYROID PANEL Routine 09/28/2013 12:00 AM ASSOCIATE WEB DEVELOPER documented in this encounter Results * THYROID PANEL (09/28/2013 12:00 AM ASSOCIATE WEB DEVELOPER) FREE T4 1.12 0.8 - 1.8 mg/dl MEDINFORMATIX TO EPIC CONVERSION TSH 2.10 0.4 - 5.5 micro IU/ml MEDINFORMATIX TO EPIC CONVERSION 09/28/2013 09/28/2013 Narrative MEDINFORMATIX TO EPIC CONVERSION - 09/29/2013 11:34 AM ASSOCIATE WEB DEVELOPER Reviewed by ADAN Sep ??7 2013 11:35:02:000AM us Generic Conversion Md [facility] Final R esult MEDINFORMATIX TO EPIC CONVERSION documented in this encounter Visit Diagnoses Not on filedocumented in this encounter
--- OUTSIDE RECORDS SUMMARY | 2024-09-03 20:47 | XMS_ITS | Encounter Summary ---
Author Organization [facility] Address [address] [place] [address]. [place], [place] [address] [place] [address] Care Team Providers Care Service Inspector Name Role Phone Piyush Pandey MD Unavailable UnavailMegan Rodriguez MD Primary Care Provider [phone] Sharmila Davis APRN PROFESSOR OF GEOGRAPHY-C Unavailable Linda Block MD Unavailable [phone] Encounter Details Date Type Department Care Team (Latest Contact Info) Description 02/14/2014 Abstract [facility] Social History Tobacco [...] Complete Done: 14Feb2014 Perform: In Office Due: [id number]; Last Updated By: Isak Velasco; 02/14/2014 2:43:40 PM; Ordered; For: Shortness of breath; Ordered By: Shubham Callahan 3. *Spirometry with Bronchodilator Admin In Office Status: Complete Done: 14Feb2014 Perform: In Office Due: [id number]; Last Updated By: Isak Velasco; 02/14/2014 2:43:39 PM; Ordered; For: Shortness of breath; Ordered By: Shubham Callahan 4. Nebulizer In Office Status: Complete Done: 14Feb2014 Perform: In Office Due: [id number]; Last Updated By: Isak Velasco; 02/14/2014 2:43:40 PM; Ordered; For: Shortness of breath; Ordered By: Shubham Callahan Plan Comments: Complete pulmonary function test. CT scan of the chest without contrast. See me after above. Discussion/Summary Discussion Summary: This patient returns today for further pulmonary evaluation. I met this patientduring a hospitalization in March of 2012 at [facility]. He was in the hospital with congestive [...] 02:07PM Recorded by : Isak Velasco at [id number] 01:50PM Heart Rate 59 Systolic 187 Diastolic [...] Shubham Callahan M.D.; Feb 15 2014 6:46PM PATIENT REGISTRAR (Author) documented in this encounter Plan of Treatment Upcoming Encounters Date Type Department Care Team (Late st Contact Info) Description 09/25/2024 2:00 PM PATIENT REGISTRAR Appointment [facility] [address] [place] [address] Zayra Powell, SEWING MACHINE BOBBIN WINDER [address] [place] [address] 10/16/2024 3:30 PM PATIENT REGISTRAR [facility] [address] [place] [phone] Brit Gonzáles MD [address] [place] [address] documented as of this encounter Visit Diagnoses Not on filedocumented in this encounter Care Teams Service Inspector Relationship Specialty Start Date End Date Megan Infante MD [address] [place] [address] PCP - General FAMILY PRACTICE 04/06/16 Piyush Pandey MD [place] Equipment Detailer CARDIOVASCULAR DISEASE 04/06/16 12/28/23 Sharmila Davis, WAX PATTERN COATER, PROFESSOR OF GEOGRAPHY-C [address] [facility] [address] [place] [address] NURSE PRACTITIONER 01/04/17 04/03/24 Linda Block MD 6[address] [facility] [address] [place] [address] [place] Equipment Detailer CLINICAL CARDIAC ELECTROPHYSIOLOGY 02/08/17 04/12/23 documented as of this encounter
--- OUTSIDE RECORDS SUMMARY | 2024-09-03 20:47 | XMS_ITS | Encounter Summary ---
Author Organization [facility] Address [facility] [place] [address] [place] [address] Care Team Providers Care Studio Sales Associate Name Role Phone Piyush Pandey MD Unavailable Unavailabl e Megan Infante MD Primary Care Provider [phone] Sharmila Davis APRN, BREAD PANNER-C Unavailable Linda Block MD Unavailable [phone] Encounter Details Date Type Department Care Team (Late Contact Info) Description 06/25/2014 Abstract [facility] [address] [place], [place] [address] Paul Conklin MD [address] [place], [place] [address] Social History Tobacco Use Types Packs/Day Years [...] (Late Contact Info) Description 09/25/2024 2:00 PM ROOFING TILE SORTER Appointment [facility] [address] [place] [address] Zayra Powell, METER ATTENDANT [address] [place] [address] 10/16/2024 3:30 PM ROOFING TILE SORTER Office [facility] [address] [facility] [place] [address] Brit Gonzáles MD [address] [place] [address] documented as of this encounter Visit Diagnoses Diagnosis Pulmonary congestion and hypostasis (HHS/HCC) Pulmonary congestion and hypostasis documented in this encounter Care Teams Studio Sales Associate Relationship Specialty Start Date End Date Megan Infante MD [address] [facility] [place] [place] [address] PCP - General FAMILY PRACTICE 04/06/16 Piyush Pandey MD [place] Well Logging Mud Analysis Captain CARDIOVASCULAR DISEASE 04/06/16 12/28/23 Sharmila Davis APRN, BREAD PANNER-C [address] [facility] [address] [place] [address] NURSE PRACTITIONER 01/04/17 04/03/24 Linda Block MD [address] [facility] [address] [place] [address] [place] Well Logging Mud Analysis Captain CLINICAL CARDIAC ELECTROPHYSIOLOGY 02/08/17 04/12/23 documented as of this encounter
--- OUTSIDE RECORDS SUMMARY | 2024-09-03 20:47 | XMS_ITS | Encounter Summary ---
Author Organization [facility] Address [address] [place] [address]. [place] [address] [place] [address] Care Team Providers Care Outreach Librarian Name Role Phone Piyush Pandey MD Unavailable UnavailMegan Rodriguez MD Primary Care Provider [phone] Sharmila Davis APRN, BENEFITS CLERK-C Unavailable Linda Block MD Unavailable [phone] Encounter Details Date Type Department Care Team (Late st Contact Info) Description 10/13/[address] [facility] [address] [place] [address] Matias Mac MD [address] [place] [address] Social History Tobacco Use Types Packs/Day Years [...] st Contact Info) Description 09/25/2024 2:00 PM DORMITORY SUPERVISOR Appointment [facility] [address] [place] [address] Zayra Powell FNP [address] [place] [address] 10/16/2024 3:30 PM DORMITORY SUPERVISOR Office Visit [facility] [place] [address] Brit Gonzáles MD [address] [place] [address] documented as of this encounter Visit Diagnoses Diagnosis Shortness of breath documented in this encounter Care Teams Outreach Librarian Relationship Specialty Start Date End Date Megan Infante MD [address] [place] [address] PCP - General FAMILY PRACTICE 04/06/16 Piyush Pandey MD [place] Converting Operator CARDIOVASCULAR DISEASE 04/06/16 12/28/23 Sharmila Davis, PRINTING SALES REPRESENTATIVE, BENEFITS CLERK-C [address] [facility] [address] [place] [address] NURSE PRACTITIONER 01/04/17 04/03/24 Linda Block MD 619 [facility] [address] [place] [address] [place] Converting Operator CLINICAL CARDIAC ELECTROPHYSIOLOGY 02/08/17 04/12/23 documented as of this encounter
--- OUTSIDE RECORDS SUMMARY | 2024-09-03 20:47 | XMS_ITS | Encounter Summary ---
Author Organization [facility] Address [facility]6 [facility] [place] [address] [place] [address] Care Team Providers Care Assistant Art Director Name Role Phone Piyush Pandey MD Unavailable UnavailMegan Rodriguez MD Primary Care Provider [phone] Sharmila Davis APRN, BULK PIGMENT REDUCER-C Unavailable Linda Block MD Unavailable [phone] Encounter Details Date Type Department Care Team (Latest Contact Info) Description 03/26/2014 Abstract [facility] Medical Group Shubham Callahan MD [address] [place] [address] Social History Tobacco Use Types Packs/Day Years [...] st Contact Info) Description 09/25/2024 2:00 PM INTERACTIVE MARKETING STRATEGIST Appointment [facility] [address] [place] [address] Zayra Powell FNP [address] [place] [address] 10/16/2024 3:30 PM INTERACTIVE MARKETING STRATEGIST Office Visit [facility] [address] [place] [address] Brit Gonzáles MD [address] [place] [address] documented as of this encounter Visit Diagnoses Not on filedocumented in this encounter Care Teams Assistant Art Director Relationship Specialty Start Date End Date Megan Infante MD [address] [facility] [place] [address] PCP - General FAMILY PRACTICE 04/06/16 Piyush Pandey MD [place] Director Stars CARDIOVASCULAR DISEASE 04/06/16 12/28/23 Sharmila Davis APRN, BULK PIGMENT REDUCER-C 619 [facility] [address] [place] [address] NURSE PRACTITIONER 01/04/17 04/03/24 Linda Block MD 619 [facility] [address] [phone] [place] Director Stars CLINICAL CARDIAC ELECTROPHYSIOLOGY 02/08/17 04/12/23 documented as of this encounter
--- OUTSIDE RECORDS SUMMARY | 2024-09-03 20:47 | XMS_ITS | Encounter Summary ---
Author Organization [facility] Address [address] [place] [address]. [place] [address] [place] [address] Care Team Providers Care Material Analyst Name Role Phone Unavailable Primary Care Provider Unavailabl e Encounter Details Date Type Department Care Team (Late st Contact Info) Description 06/20/2015 Abstract [facility] [address] [place] [address] Eun Tovar MD Social History [...] Contact Info) Description 09/25/2024 2:00 PM DIE TRY OUT WORKER Appointment [facility] [address] [place] [address] Zayra Powell, MEDICAL DIR [address] [place] [address] 10/16/2024 3:30 PM DIE TRY OUT WORKER Office Visit [facility] [address] [address] Brit Gonzáles MD [address] [place] [address] documented as of this encounter Visit Diagnoses Not on filedocumented in this encounter
--- OUTSIDE RECORDS SUMMARY | 2024-09-03 20:47 | XMS_ITS | Encounter Summary ---
Author Organization [facility] Address [facility]6 [facility] [place] [address] [place] [address] Care Team Providers Care It Solutions Architect Name Role Phone Piyush Pandey MD Unavailable Unavailabl e Megan Infante MD Primary Care Provider [phone] Sharmila Davis APRN, PATIENTS TRANSPORTER-C Unavailable Linda Block MD Unavailable [phone] Encounter Details Date Type Department Care Team (Late st Contact Info) Description 10/01/2015 Abstract [facility] Battery Checker [address] [place] [address] Linda Block MD [address] [facility] [address] [place] [address] Social History Tobacco Use Types Packs/Day Years [...] Contact Info) Description 09/25/2024 2:00 PM DINKEY DRIVER Appointment [facility] [address] [place] [address] Zayra Powell, CIGAR MAKER [address] [place] [address] 10/16/2024 3:30 PM DINKEY DRIVER [facility] [address] [facility] [place] [address] Brit Gonzáles MD [address] [place] [address] documented as of this encounter Visit Diagnoses Diagnosis Persistent atrial fibrillation ([facility]/HCC HHS/HCC) Atrial fibrillation documented in this encounter Care Teams It Solutions Architect Relationship Specialty Start Date End Date Mgean Infante MD [address] [place] [address] PCP - General FAMILY PRACTICE 04/06/16 Piyush Pandey MD [facility] Registered Nurse CARDIOVASCULAR DISEASE 04/06/16 12/28/23 Sharmila Davis APRN, PATIENTS TRANSPORTER-C [address]19 [facility] [address] [place] [address] NURSE PRACTITIONER 01/04/17 04/03/24 Linda Block MD 619 [facility] [address] [place] [address] [facility] Registered Nurse CLINICAL CARDIAC ELECTROPHYSIOLOGY 02/08/17 04/12/23 documented as of this encounter
--- OUTSIDE RECORDS SUMMARY | 2024-09-03 20:47 | XMS_ITS | Encounter Summary ---
Author Organization [facility] Address [address] [place] [address]. [place] [address] [place] [address] Care Team Providers Care Neuro Psych Sales Specialist Name Role Phone Unavailable Primary Care Provider Unavailabl e Encounter Details Date Type Department Care Team (Late st Contact Info) Description 03/20/2013 Abstract [facility] [address] [place] [address] Eun Tovar MD Social History [...] Contact Info) Description 09/25/2024 2:00 PM CHIEF TECHNICIAN X RAY Appointment [facility] [address] [place] [address] Zayra Powell, HOSIERY BAGGER [address] [place] [address] 10/16/2024 3:30 PM CHIEF TECHNICIAN X RAY Office Visit [facility] [address] [phone] Brit Gonzáles MD [address] [place] [address] documented as of this encounter Visit Diagnoses Not on filedocumented in this encounter
--- OUTSIDE RECORDS SUMMARY | 2024-09-03 20:47 | XMS_ITS | Encounter Summary ---
Author Organization [facility] Address [address] [place] [address]. [place] [address] [place] [address] Care Team Providers Care Training Technician Name Role Phone Piyush Pandey MD Unavailable UnavailMegan Rodriguez MD Primary Care Provider [phone] Sharmila Davis APRN, ELASTIC CUTTER-C Unavailable Linda Block MD Unavailable [phone] Encounter Details Date Type Department Care Team (Late st Contact Info) Description 09/20/2015 Abstract [facility] [address] [place], [place] [phone] Hector Fishman MD Social History Tobacco Use [...] st Contact Info) Description 09/25/2024 2:00 PM OUTBOUND CALL CENTER REPRESENTATIVE Appointment [facility] [address] [place] [address] Zayra Powell, DOPE DRY HOUSE OPERATOR [address] [place] [address] 10/16/2024 3:30 PM OUTBOUND CALL CENTER REPRESENTATIVE Office Visit [facility] [address] [place] [address] Brit Gonzáles MD [address] [place] [address] documented as of this encounter Visit Diagnoses Diagnosis Heart failure ([facility]) Heart failure, unspecified documented in this encounter Care Teams Training Technician Relationship Specialty Start Date End Date Megan Infante MD [address] [facility] [place] [address] PCP - General FAMILY PRACTICE 04/06/16 Piyush Pandey MD [place] Weight [facility] Test Bar Clerk CARDIOVASCULAR DISEASE 04/06/16 12/28/23 Sharmila Davis, DONOR CENTER TECHNICIAN, ELASTIC CUTTER-C 619 [facility] [address] [place] [address] NURSE PRACTITIONER 01/04/17 04/03/24 Linda Block MD 619 [facility] [address] [place] [address] [place] Weight And Test Bar Clerk CLINICAL CARDIAC ELECTROPHYSIOLOGY 02/08/17 04/12/23 documented as of this encounter
--- OUTSIDE RECORDS SUMMARY | 2024-09-03 20:47 | XMS_ITS | Encounter Summary ---
Author Organization [facility] Address [address] [place] [address]. [place] [address] [place] [address] Care Team Providers Care Transitional Care Nurse Name Role Phone Unavailable Primary Care Provider Unavailabl e Encounter Details Date Type Department Care Team (Late st Contact Info) Description 11/13/2013 Abstract [facility] [address] [place] [address] Eun Tovar MD Social History [...] Contact Info) Description 09/25/2024 2:00 PM MACHINE I CUTTER Appointment [facility] [address] [place] [address] Zayra Powell, STONEMASON HELPER [address] [place] [address] 10/16/2024 3:30 PM MACHINE I CUTTER Office Visit [facility] [address] [phone] Brit Gonzáles MD [address]19 [place] [address] documented as of this encounter Visit Diagnoses Not on filedocumented in this encounter
--- OUTSIDE RECORDS SUMMARY | 2024-09-03 20:47 | XMS_ITS | Encounter Summary ---
Author Organization [facility] Address [facility] [place] [address] [place] [address] Care Team Providers Care Aligning Checker Name Role Phone Piyush Pandey MD Unavailable Unavailabl e Megan Infante MD Primary Care Provider [phone] Sharmila Davis APRN COVERER-C Unavailable [phone] Linda Block MD Unavailable [phone] Jeff Grace MD Unavailable Encounter Details Date Type Department Care Team (Late st Contact Info) Description 05/24/2014 Abstract [facility] [address] [place] [address] , Generic Conversion, Social History Tobacco Use [...] st Contact Info) Description 09/25/2024 2:00 PM ADVENTURE CHALLENGE INSTRUCTOR Appointment [facility] [address] [place] [address] Zayra Powell, OCEANOGRAPHY TEACHER [address] [place] [address] 10/16/2024 3:30 PM ADVENTURE CHALLENGE INSTRUCTOR Office Visit [facility] [address] [place] [address] Brit Gonzáles MD [address] [place] [address] documented as of this encounter Procedures Procedure Name Priority Date/Time Associated Diagnosis Comments ECG 12-LEAD Routine 05/24/2014 6:27 AM CDT documented in this encounter Results * ECG 12 lead (05/24/2014 6:27 AM CDT) 05/24/2014 6:27 AM CDT Narrative [facility] - 05/24/2014 3:01 PM CDT ? [facility] ? [address] [place], [place] ??[address] ? Test Date: ?2014-05-24 Pat Name: ? OBIE SIMS ?Department: ?? 1 ? Room: ? CRU0 Gender: ? M ?Rubber Ball Finisher: ?? gs : ?1955 ? Requested By: REEMA SANTAMARIA Order Number: [id number] ? Sage LANDRY: ?? Shaji Aguilera ? Measurements Intervals ?[place] ? Rate: ? 91 ? P: ?14 AL: ? 179 ?QRS: ?-10 QRSD: ? 134 ?T: ?151 QT: ? 381 ? QTc: ?469 ? Interpretive Statements SINUS RHYTHM INTRAVENTRICULAR CONDUCTION DELAY LEFT VENTRICULAR HYPERTROPHY AND ST-T CHANGE Procedure Note Eun Landry MD - 04/19/2019 [facility] [address] [place] [address] Test Date: 2014-05-24 Pat Name: OBIE SIMS Department: 1 Room: [facility] Gender: M Rubber Ball Finisher: : 1955 Requested By: REEMA SANTAMARIA Order Number: [id number] Reading : Shaji Aguilera Measurements Intervals [place] Rate: 91 P: 14 AL: 179 QRS: -10 QRSD: 134 T: 151 QT: 381 QTc: 469 Interpretive Statements SINUS RHYTHM INTRAVENTRICULAR CONDUCTION DELAY LEFT VENTRICULAR HYPERTROPHY AND ST-T CHANGE us Generic Conversion Md LANDRY ECG ORDERABLES Final R esult [facility] documented in this encounter Visit Diagnoses Not on filedocumented in this encounter Care Teams Aligning Checker Relationship Specialty Start Date End Date Megan Infante MD [address] [place] [address] PCP - General FAMILY PRACTICE 04/06/16 Piyush Pandey MD [place] Patient Transporter CARDIOVASCULAR DISEASE 04/06/16 12/28/23 Sharmila Davis APRN, COVERER-C [address] [facility] [address] [place] [address] NURSE PRACTITIONER 01/04/17 04/03/24 Linda Block MD [address] [facility] [address] [address] [place] Patient Transporter CLINICAL CARDIAC ELECTROPHYSIOLOGY 02/08/17 04/12/23 Jeff Grace MD [address] [facility] [address] [phone] Consulting Physician INTERNAL MEDICINE 02/20/19 3 documented as of this encounter
--- OUTSIDE RECORDS SUMMARY | 2024-09-03 20:48 | XMS_ITS | Encounter Summary ---
Author Organization [facility] Address [facility]6 [facility] [place] [address] [place] [address] Care Team Providers Care Inspector Machine Parts Name Role Phone Piyush Pandey MD Unavailable Unavailabl Megan Leos MD Primary Care Provider [phone] Sharmila Davis APRN FUEL CONVERSION TECHNICIAN-C Unavailable Linda Block MD Unavailable [phone] Encounter Details Date Type Department Care Team (Late st Contact Info) Description 02/16/2011 Abstract [facility] - [facility] [address] [place] [address] Piyush Pandey MD Social History Tobacco Use [...] Contact Info) Description 09/25/2024 2:00 PM HEALTH CLUB MANAGER Appointment [facility] [address] [place] [address] Zayra Powell, RADAR MECHANIC [address] [place] [address] 10/16/2024 3:30 PM HEALTH CLUB MANAGER Office Visit [facility] [address] [place] [phone] Brit Gonzáles MD [address] [place] [address] documented as of this encounter Visit Diagnoses Diagnosis 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 documented in this encounter Care Teams Inspector Machine Parts Relationship Specialty Start Date End Date Megan Infante MD [address] [facility] [place] [phone] PCP - General FAMILY PRACTICE 04/06/16 Piyush Pandey MD [place] Individual Small Group Instructor CARDIOVASCULAR DISEASE 04/06/16 12/28/23 Sharmila Davis, VIBRATION TECHNICIAN, FUEL CONVERSION TECHNICIAN-C 6[address] [facility] [address] [place] [address] NURSE PRACTITIONER 01/04/17 04/03/24 Linda Block MD 6[address] [facility] [address] [place] [address] [place] Individual Small Group Instructor CLINICAL CARDIAC ELECTROPHYSIOLOGY 02/08/17 04/12/23 documented as of this encounter
--- OUTSIDE RECORDS SUMMARY | 2024-09-03 20:48 | XMS_ITS | Encounter Summary ---
Author Organization [facility] Address [address] [place] [address]. [place] [address] [place] [address] Care Team Providers Care Health And Fitness Instructor Name Role Phone Piyush Pandey MD Unavailable UnavailMegan Rodriguez MD Primary Care Provider [phone] Sharmila Davis APRN, APPAREL MERCHANDISER-C Unavailable Linda Block MD Unavailable [phone] Encounter Details Date Type Department Care Team (Late st Contact Info) Description 09/21/[address] [facility] [address] [place] [address] Matias Mac MD [address] [place] [address] Social History Tobacco Use Types Packs/Day Years [...] st Contact Info) Description 09/25/2024 2:00 PM SANITARY ENGINEER Appointment [facility] [address] [place] [address] Zayra Powell FNP [address] [place] [address] 10/16/2024 3:30 PM SANITARY ENGINEER Office Visit [facility] [address] [place] [phone] Brit Gonzáles MD [address] [place] [address] documented as of this encounter Visit Diagnoses Not on filedocumented in this encounter Care Teams Health And Fitness Instructor Relationship Specialty Start Date End Date Megan Infante MD [address] [place] [address] PCP - General FAMILY PRACTICE 04/06/16 Piyush Pandey MD [place] Hot Blaster CARDIOVASCULAR DISEASE 04/06/16 12/28/23 Sharmila Davis, MARINE ENGINEER, APPAREL MERCHANDISER-C [address]19 [facility] [address] [place] [phone] NURSE PRACTITIONER 01/04/17 04/03/24 Linda Block MD [address] [facility] [address] [place] [phone] [place] Hot Blaster CLINICAL CARDIAC ELECTROPHYSIOLOGY 02/08/17 04/12/23 documented as of this encounter
--- OUTSIDE RECORDS SUMMARY | 2024-09-03 20:48 | XMS_ITS | Encounter Summary ---
Author Organization [facility] Address [address] [place] [address]. [place] [address] [place] [address] Care Team Providers Care Filenet Admin Name Role Phone Piyush Pandey MD Unavailable UnavailMegan Rodriguez MD Primary Care Provider [phone] Sharmila Davis APRN CALIBRATION LABORATORY TECHNICIAN-C Unavailable Linda Block MD Unavailable [phone] Encounter Details Date Type Department Care Team (Late st Contact Info) Description 10/04/2008 Abstract [facility] Diagnostic Imaging [address] [place] [address] Palomo Ponce MD [address] [place] [phone] Social History Tobacco Use Types Packs/Day Years [...] (Late Contact Info) Description 09/25/2024 2:00 PM SPICE BLENDER Appointment [facility] [address] [place] [address] Zayra Powell, FRONT LOADER RESIDENTIAL DRIVER [address] [place] [address] 10/16/2024 3:30 PM SPICE BLENDER Office Visit [facility] [address] [place] [phone] Brit Gonzáles MD [address] [place] [address] documented as of this encounter Visit Diagnoses Diagnosis Pain in joint, pelvic region and thigh documented in this encounter Care Teams Filenet Admin Relationship Specialty Start Date End Date Megan Infante MD [address] [place] [phone] PCP - General FAMILY PRACTICE 04/06/16 Piyush Pandey MD [place] Clinical Applications Specialist CARDIOVASCULAR DISEASE 04/06/16 12/28/23 Sharmila Davis, COMPENSATION AND BENEFITS ANALYST, CALIBRATION LABORATORY TECHNICIAN-C [address] [facility] [address] [place] [phone] NURSE PRACTITIONER 01/04/17 04/03/24 Linda Block MD 619 [facility] [address] [place] [phone] [place] Clinical Applications Specialist CLINICAL CARDIAC ELECTROPHYSIOLOGY 02/08/17 04/12/23 documented as of this encounter
--- OUTSIDE RECORDS SUMMARY | 2024-09-03 20:48 | XMS_ITS | Encounter Summary ---
Author Organization [facility] Address [address] [place] [address]. [place] [address] [place] [address] Care Team Providers Care Open Hearth Furnace Operator Name Role Phone Unavailable Primary Care Provider Unavailabl e Encounter Details Date Type Department Care Team (Late st Contact Info) Description 08/25/2011 Abstract [facility] [address] [place] [address] Eun Tovar MD Social History [...] st Contact Info) Description 09/25/2024 2:00 PM FURNITURE CLEANER Appointment [facility] [address] [place] [address] Zayra Powell, SUPERVISOR CEREAL [address] [place] [address] 10/16/2024 3:30 PM FURNITURE CLEANER Office Visit [facility] [place] [address] [phone] Brit Gonzáles MD [address] [place] [address] documented as of this encounter Visit Diagnoses Not on filedocumented in this encounter
--- OUTSIDE RECORDS SUMMARY | 2024-09-03 20:48 | XMS_ITS | Encounter Summary ---
Author Organization [facility] Address [address] [place] [address]. [place] [address] [place] [address] Care Team Providers Care Jalousie Installer Name Role Phone Unavailable Primary Care Provider Unavailabl e Encounter Details Date Type Department Care Team (Late st Contact Info) Description 04/14/2012 Abstract [facility] [address] [place] [address] Eun Landry MD Social History [...] Contact Info) Description 09/25/2024 2:00 PM SIGN ERECTOR Appointment [facility] [address] [place] [address] Zayra Powell, MARKETING SYSTEMS ANALYST [address] [place] [address] 10/16/2024 3:30 PM SIGN ERECTOR Office Visit [facility] [place] [address] [place] [phone] Brit Gonzáles MD 619 [place] [address] documented as of this encounter Procedures Procedure Name Priority Date/Time Associated Diagnosis Comments ECG 12-LEAD Routine 04/14/2012 11:24 AM CDT ECG 12-LEAD Routine 04/14/2012 8:02 AM CDT documented in this encounter Results * ECG 12 lead (04/14/2012 11:24 AM CDT) 04/14/2012 11:2 4 AM CDT Narrative [facility] - 04/15/2012 7:44 PM CDT ? [facility] ? [address] [place], [place] ??[address] ? Test Date: ?2012-04-14 Pat Name: ? OBIE SIMS ?Department: ?? 1 ? Room: ? 0404AA Gender: ? M ?Front Office Representative: ?? NATALY : ?1955 ? Requested By: MARLEE VEGA Order Number: [id number] ?Reading MD: ?? Armand Lentz ? Measurements Intervals ?[place] ? Rate: ? 70 ? P: ?12 NE: ? 180 ?QRS: ?-15 QRSD: ? 106 ?T: ?114 QT: ? 446 ? QTc: ?481 ? Interpretive Statements Sinus rhythm with occasional premature ventricular complexes Incomplete left bundle branch block Left ventricular hypertrophy with repolarization abnormality Prolonged QT Abnormal ECG Procedure Note , Generic Conversion, - 04/19/2019 [facility] [address] [place] [address] Test Date: 2012-04-14 Pat Name: OBIE SIMS Department: 1 Room: [facility] Gender: M Front Office Representative: NATAYL : 1955 Requested By: MARLEE VEGA Order Number: [id number] Reading MD: Armand Lentz Measurements Intervals [place] Rate: 70 P: 12 NE: 180 QRS: -15 QRSD: 106 T: 114 QT: 446 QTc: 481 Interpretive Statements Sinus rhythm with occasional premature ventricular complexes Incomplete left bundle branch block Left ventricular hypertrophy with repolarization abnormality Prolonged QT Abnormal ECG us Generic Conversion Md LANDRY ECG ORDERABLES Final R esult [facility] * ECG 12 lead (04/14/2012 8:02 AM CDT) 04/14/2012 8:02 AM CDT Narrative [facility] - 04/15/2012 7:51 PM CDT ? [facility] ? [address] [place], [place] ??[address] ? Test Date: ?2012-04-14 Pat Name: ? OBIE BELLHAN ?Department: ?? 1 ? Room: ? 0404AA Gender: ? M ?Front Office Representative: ?? JM : ?1955 ? Requested By: MARLEE VEGA Order Number: [id number] ?Reading MD: ?? Armand Lentz ? Measurements Intervals ?[place] ? Rate: ? 64 ? P: ? NE: ?QRS: ?-12 QRSD: ? 106 ?T: ?136 QT: ? 426 ? QTc: ?439 ? Interpretive Statements Atrial fibrillation with premature ventricular or aberrantly conducted complexes Incomplete left bundle branch block Minimal voltage criteria for LVH, may be normal variant ST & T wave abnormality, consider lateral ischemia or digitalis effect Abnormal ECG Procedure Note , Generic Conversion, - 04/19/2019 [facility] [address] [place] [address] Test Date: 2012-04-14 Pat Name: OBIE SIMS Department: 1 Room: [facility] Gender: M Front Office Representative: : 1955 Requested By: MARLEE VEGA Order Number: [id number] Reading MD: Armand Lentz Measurements Intervals [place] Rate: 64 P: NE: QRS: -12 QRSD: 106 T: 136 QT: 426 QTc: 439 Interpretive Statements Atrial fibrillation with premature ventricular or aberrantly conducted complexes Incomplete left bundle branch block Minimal voltage criteria for LVH, may be normal variant ST & T wave abnormality, consider lateral ischemia or digitalis effect Abnormal ECG us Generic Conversion Md LANDRY ECG ORDERABLES Final R esult [facility] documented in this encounter Visit Diagnoses Not on filedocumented in this encounter
--- OUTSIDE RECORDS SUMMARY | 2024-09-03 20:48 | XMS_ITS | Encounter Summary ---
Author Organization [facility] Address [address] [place] [address]. [place] [address] [place] [address] Care Team Providers Care Shop Technician Name Role Phone Piyush Pandey MD Unavailable UnavailMegan Rodriguez MD Primary Care Provider [phone] Sharmila Davis APRN FABRIC NORMALIZER-C Unavailable Linda Block MD Unavailable [phone] Encounter Details Date Type Department Care Team (Late st Contact Info) Description 07/30/2011 Abstract [facility] Diagnostic Imaging [address] [place] [address] Palomo Ponce MD [address] [place] [phone] Social History Tobacco Use Types Packs/Day Years [...] (Late Contact Info) Description 09/25/2024 2:00 PM HVAC/R INSTRUCTOR Appointment [facility] [address] [place] [address] Zayra Powell, CHIEF REVENUE OFFICER [address] [place] [address] 10/16/2024 3:30 PM HVAC/R INSTRUCTOR Office Visit [facility] [address] [place] [phone] Brit Gonzáles MD [address] [place] [address] documented as of this encounter Visit Diagnoses Diagnosis Pain in joint, pelvic region and thigh documented in this encounter Care Teams Shop Technician Relationship Specialty Start Date End Date Megan Infante MD [address] [place] [phone] PCP - General FAMILY PRACTICE 04/06/16 Piyush Pandey MD [place] Crime Lab Analyst CARDIOVASCULAR DISEASE 04/06/16 12/28/23 Sharmila Davis, GENERATING STATION MECHANIC, FABRIC NORMALIZER-C 619 [facility] [address] [place] [phone] NURSE PRACTITIONER 01/04/17 04/03/24 Linda Block MD 619 [facility] [address] [place] [phone] [place] Crime Lab Analyst CLINICAL CARDIAC ELECTROPHYSIOLOGY 02/08/17 04/12/23 documented as of this encounter
--- OUTSIDE RECORDS SUMMARY | 2024-09-03 20:48 | XMS_ITS | Encounter Summary ---
Author Organization [facility] Address [address] [place] [address]. [place] [address] [place] [address] Care Team Providers Care Laboratory Operations Coordinator Name Role Phone Piyush Pandey MD Unavailable Unavailabl Megan Leos MD Primary Care Provider [phone] Sharmila Davis APRN RUBBER MILL OPERATOR-C Unavailable Linda Block MD Unavailable [phone] Encounter Details Date Type Department Care Team (Late st Contact Info) Description 03/08/2003 Abstract [facility] [address] [place] [address] , Generic MD Nikhil Social [...] st Contact Info) Description 09/25/2024 2:00 PM WARP TYING MACHINE KNOTTER Appointment [facility] [address] [place] [address] Zayra Powell, MANAGER COST [address] [place] [address] 10/16/2024 3:30 PM WARP TYING MACHINE KNOTTER Office Visit [facility] [address] [place] [phone] Brit Gonzáles MD [address] [place] [address] documented as of this encounter Visit Diagnoses Not on filedocumented in this encounter Care Teams Laboratory Operations Coordinator Relationship Specialty Start Date End Date Megan Infante MD [address] [facility] [place] [phone] PCP - General FAMILY PRACTICE 04/06/16 Piyush Pandey MD [place] Puppet Maker CARDIOVASCULAR DISEASE 04/06/16 12/28/23 Sharmila Davis APRN, RUBBER MILL OPERATOR-C 619 [facility] [address] [place] [phone] NURSE PRACTITIONER 01/04/17 04/03/24 Linda Block MD 619 [facility] [address] [place] [address] [place] Puppet Maker CLINICAL CARDIAC ELECTROPHYSIOLOGY 02/08/17 04/12/23 documented as of this encounter
--- OUTSIDE RECORDS SUMMARY | 2024-09-03 20:48 | XMS_ITS | Encounter Summary ---
Author Organization [facility] Address [address] [place] [address]. [place] [address] [place] [address] Care Team Providers Care Migration Specialist Name Role Phone Piyush Pandey MD, Amy E MD Primary Care Provider [phone] Encounter Details Date Type Department Care Team (Late st Contact Info) Description 12/29/2010 [facility] [place] [facility] AT [address] [address] Eun Tovar MD Social History [...] Contact Info) Description 09/25/2024 2:00 PM BUSINESS SUPPORT MANAGER Appointment [facility] [address] [place] [address] Zayra Powell, REFRIGERATOR CAR ICER [address] [place] [address] 10/16/2024 3:30 PM BUSINESS SUPPORT MANAGER Office Visit [facility] [address] [place] [phone] Brit Gonzáles MD [address] [place] [address] documented as of this encounter Visit Diagnoses Not on filedocumented in this encounter Care Teams Migration Specialist Relationship Specialty Start Date End Date Megan Infante MD [address] [place] [address] PCP - General FAMILY PRACTICE 04/06/16 Piyush Pandey MD [place] Biostation Research Ecologist CARDIOVASCULAR DISEASE 04/06/16 12/28/23 documented as of this encounter
--- OUTSIDE RECORDS SUMMARY | 2024-09-03 20:48 | XMS_ITS | Encounter Summary ---
Author Organization [facility] Address [address] [place] [address]. [place] [address] [place] [address] Care Team Providers Care Casino Duty Manager Name Role Phone Piyush Pandey MD Unavailable Unavailabl Megan Leos MD Primary Care Provider [phone] Sharmila Davis APRN, ENGRAVER AUTOMATIC-C Unavailable [phone] Linda Block MD Unavailable [phone] Encounter Details Date Type Department Care Team (Late st Contact Info) Description 02/22/2002 Abstract [facility] [address] [place] [address] , Generic MD Nikhil Social [...] st Contact Info) Description 09/25/2024 2:00 PM VIRTUALIZATION CONSULTANT Appointment [facility] [address] [place] [address] Zayra Powell, CHILD LIFE ASSISTANT [address] [place] [address] 10/16/2024 3:30 PM VIRTUALIZATION CONSULTANT Office Visit [facility] [address] [place] [phone] Brit Gonzáles MD [address] [place] [address] documented as of this encounter Visit Diagnoses Not on filedocumented in this encounter Care Teams Casino Duty Manager Relationship Specialty Start Date End Date Megan Infante MD [address] [facility] [place] [phone] PCP - General FAMILY PRACTICE 04/06/16 Piyush Pandey MD [place] Chip Unloader CARDIOVASCULAR DISEASE 04/06/16 12/28/23 Sharmila Davis APRN, ENGRAVER AUTOMATIC-C 619 [facility] [address] [place] [phone] NURSE PRACTITIONER 01/04/17 04/03/24 Linda Block MD 619 [facility] [address] [place] [address] [place] Chip Unloader CLINICAL CARDIAC ELECTROPHYSIOLOGY 02/08/17 04/12/23 documented as of this encounter
--- OUTSIDE RECORDS SUMMARY | 2024-09-03 20:48 | XMS_ITS | Encounter Summary ---
Author Organization [facility] Address [address] [place] [address]. [place] [address] [place] [address] Care Team Providers Care Foreman Or Supervisor And Operator Name Role Phone Piyush Pandey MD Unavailable UnavailMegan Rodriguez MD Primary Care Provider [phone] Sharmila Davis APRN, FERRYBOAT OPERATOR-C Unavailable [phone] Linda Block MD Unavailable [phone] Encounter Details Date Type Department Care Team (Late st Contact Info) Description 04/24/[address] [facility] [address] [place] [address] Iker Rodriguez, [address] [place] [address] Social History Tobacco Use Types Packs/Day Years [...] st Contact Info) Description 09/25/2024 2:00 PM IN[address]AL WRITER Appointment [facility] [address] [place] [address] Zayra Powell FNP [address] [place] [address] 10/16/2024 3:30 PM INSTRUCTIONAL WRITER Office Visit [facility] [address] [place] [phone] Brit Gonzáles MD [address] [place] [address] documented as of this encounter Visit Diagnoses Not on filedocumented in this encounter Care Teams Foreman Or Supervisor And Operator Relationship Specialty Start Date End Date Megan Infante MD [address] [place] [address] PCP - General FAMILY PRACTICE 04/06/16 Piyush Pandey MD [place] Payroll Officer CARDIOVASCULAR DISEASE 04/06/16 12/28/23 Sharmila Davis APRN, FERRYBOAT OPERATOR-C 619 [facility] [address] [place] [phone] NURSE PRACTITIONER 01/04/17 04/03/24 Linda Block MD 619 [facility] [address] [place] [phone] [place] Payroll Officer CLINICAL CARDIAC ELECTROPHYSIOLOGY 02/08/17 04/12/23 documented as of this encounter
--- OUTSIDE RECORDS SUMMARY | 2024-09-03 20:48 | XMS_ITS | Encounter Summary ---
Author Organization [facility] Address [address] [place] [address]. [place] [address] [place] [address] Care Team Providers Care Duplicating Machine Operator Name Role Phone Piysuh Pandey MD Unavailable UnavailMegan Rodriguez MD Primary Care Provider [phone] Sharmila Davis APRN, TOUR ESCORT-C Unavailable Linda Block MD Unavailable [phone] Encounter Details Date Type Department Care Team (Late st Contact Info) Description 01/29/[address] [facility] [address] [place] [address] Matias Mac MD [address] [place] [address] Social History Tobacco Use Types Packs/Day Years [...] Contact Info) Description 09/25/2024 2:00 PM SENIOR LINUX UNIX ENGINEER Appointment [facility] [address] [place] [address] Zayra Powell, TRAVEL ASSISTANT [address] [place] [address] 10/16/2024 3:30 PM SENIOR LINUX UNIX ENGINEER Office Visit [facility] [address] [place] [address] Brit Gonzáles MD 619 [place] [address] documented as of this encounter Visit Diagnoses Diagnosis Aortic valve disorder Aortic valve disorders documented in this encounter Care Teams Duplicating Machine Operator Relationship Specialty Start Date End Date Megan Infante MD [address] [place] [address] PCP - General FAMILY PRACTICE 04/06/16 Piyush Pandey MD [place] Ladle Repairer CARDIOVASCULAR DISEASE 04/06/16 12/28/23 Sharmila Davis, PHOTONIC LABORATORY TECHNICIAN, TOUR ESCORT-C 619 [facility] [address] [place] [address] NURSE PRACTITIONER 01/04/17 04/03/24 Linda Block MD 619 [facility] [address] [place] [address] [place] Ladle Repairer CLINICAL CARDIAC ELECTROPHYSIOLOGY 02/08/17 04/12/23 documented as of this encounter
--- OUTSIDE RECORDS SUMMARY | 2024-09-03 20:48 | XMS_ITS | Encounter Summary ---
Author Organization [facility] Address [address] [place] [address]. [place] [address] [place] [address] Care Team Providers Care Professor Of Musicology Name Role Phone Unavailable Primary Care Provider Unavailabl e Encounter Details Date Type Department Care Team (Late st Contact Info) Description 02/16/2011 Abstract [facility] [address] [place] [address] Eun Landry MD Social History [...] Contact Info) Description 09/25/2024 2:00 PM MANAGER CUSTOM Appointment [facility] [address] [place] [address] Zayra Powell, DATAPOWER CONSULTANT [address] [place] [address] 10/16/2024 3:30 PM MANAGER CUSTOM Office Visit [facility] [address] [phone] Brit Gonzáles MD 619 [place] [address] documented as of this encounter Procedures Procedure [...]
--- OUTSIDE RECORDS SUMMARY | 2024-09-03 20:48 | XMS_ITS | Encounter Summary ---
Author Organization [facility] Address [address] [place] [address]. [place] [address] [place] [address] Care Team Providers Care Lab Support Tech Name Role Phone Piyush Pandey MD Unavailable UnavailMegan Rodriguez MD Primary Care Provider [phone] Sharmila Davis APRN, RUG DESIGNER-C Unavailable Linda Block MD Unavailable [phone] Encounter Details Date Type Department Care Team (Late st Contact Info) Description 09/17/2003 Abstract [facility] [address] [place] [address] Matias Mac MD [address] [place] [address] Social History Tobacco Use Types Packs/Day Years [...] st Contact Info) Description 09/25/2024 2:00 PM TUFTING MACHINE OPERATOR [facility]ointment [facility] [address] [place] [address] Zayra Powell, THIRD RAIL INSTALLER [address] [place] [address] 10/16/2024 3:30 PM TUFTING MACHINE OPERATOR Office Visit [facility] Gut[address]rez[address] [place] [address] Brit Gonzáles MD 619 [place] [address] documented as of this encounter Visit Diagnoses Not on filedocumented in this encounter Care Teams Lab Support Tech Relationship Specialty Start Date End Date Megan Infante MD [address] [place] [phone] PCP - General FAMILY PRACTICE 04/06/16 Piyush Pandey MD [place] Office Machine Installer CARDIOVASCULAR DISEASE 04/06/16 12/28/23 Sharmila Davis, A AND P TECHNICIAN, RUG DESIGNER-C 619 [facility] [address] [place] [address] NURSE PRACTITIONER 01/04/17 04/03/24 Linda Block MD 619 [facility] [address] [place] [address] [place] Office Machine Installer CLINICAL CARDIAC ELECTROPHYSIOLOGY 02/08/17 04/12/23 documented as of this encounter
--- OUTSIDE RECORDS SUMMARY | 2024-09-03 20:48 | XMS_ITS | Encounter Summary ---
Author Organization [facility] Address [address] [place] [address]. [place] [address] [place] [address] Care Team Providers Care Retail Store Associate Name Role Phone Piyush Pandey MD Unavailable UnavailMegan Rodriguez MD Primary Care Provider [phone] Sharmila Davis APRN BRIDGE REPAIRER-C Unavailable Linda Block MD Unavailable [phone] Encounter Details Date Type Department Care Team (Late st Contact Info) Description 05/20/2006 Abstract [facility] [address] [place] [address] Palomo Pnoce MD [facility] [place] [facility] [place] [address] Social History Tobacco Use Types [...] Contact Info) Description 09/25/2024 2:00 PM ORACLE FINANCIALS CONSULTANT [facility]ointment [facility] [address] [address] Zayra Powell, INTERLOCKING MACHINE OPERATOR [address] [place] [address] 10/16/2024 3:30 PM ORACLE FINANCIALS CONSULTANT Office Visit [facility] [place] [address] Brit Gonzáles MD 619 [place] [address] documented as of this encounter Visit Diagnoses Not on filedocumented in this encounter Care Teams Retail Store Associate Relationship Specialty Start Date End Date Megan Infante MD [address] [place] [address] PCP - General FAMILY PRACTICE 04/06/16 Piyush Pandey MD [place] Account Underwriter CARDIOVASCULAR DISEASE 04/06/16 12/28/23 Sharmila Davis, DANNY, BRIDGE REPAIRER-C 619 [facility] [address] [place] [address] NURSE PRACTITIONER 01/04/17 04/03/24 Linda Block MD 619 [facility] [address] [place] [address] [place] Account Underwriter CLINICAL CARDIAC ELECTROPHYSIOLOGY 02/08/17 04/12/23 documented as of this encounter
--- OUTSIDE RECORDS SUMMARY | 2024-09-03 20:48 | XMS_ITS | Encounter Summary ---
Author Organization [facility] Address [address] [place] [address]. [place] [address] [place] [address] Care Team Providers Care Industrial Relations Commissioner Name Role Phone Piyush Pandey MD Unavailable UnavailMegan Rodriguez MD Primary Care Provider [phone] Sharmila Davis APRN, ELECTRICAL MAINTENANCE MAN-C Unavailable Linda Block MD Unavailable [phone] Encounter Details Date Type Department Care Team (Late st Contact Info) Description 11/05/2011 Abstract [facility] [address] [place] [address] Matias Mac MD [address] [place] [address] Social History Tobacco Use Types Packs/Day Years [...] st Contact Info) Description 09/25/2024 2:00 PM WATERPROOFING MACHINE OPERATOR [facility]ointment [facility] [address] [place] [address] Zayra Powell, SERVICE BAR CASHIER [address] [place] [address] 10/16/2024 3:30 PM WATERPROOFING MACHINE OPERATOR Office Visit [facility] [address]rez[address] [place] [address] Brit Gonzáles MD 619 [place] [address] documented as of this encounter Visit Diagnoses Diagnosis Osteoarthrosis, pelvic region and thigh Osteoarthrosis, unspecified whether generalized or localized, pelvic region and thigh documented in this encounter Care Teams Industrial Relations Commissioner Relationship Specialty Start Date End Date Megan Infante MD [address] [place] [address] PCP - General FAMILY PRACTICE 04/06/16 Piyush Pandey MD [place] Rear Load Truck Driver CARDIOVASCULAR DISEASE 04/06/16 12/28/23 Sharmila Davis, WATER TREATMENT PLANT SUPERVISOR, ELECTRICAL MAINTENANCE MAN-C 619 [facility] [address] [place] [address] NURSE PRACTITIONER 01/04/17 04/03/24 Linda Block MD 619 [facility] [address] [place] [address] [place] Rear Load Truck Driver CLINICAL CARDIAC ELECTROPHYSIOLOGY 02/08/17 04/12/23 documented as of this encounter
--- OUTSIDE RECORDS SUMMARY | 2024-09-03 20:48 | XMS_ITS | Encounter Summary ---
Author Organization [facility] Address [address] [place] [address]. [place] [address] [place] [address] Care Team Providers Care Waste Handling Technician Name Role Phone Piyush Pandey MD Unavailable UnavailMegan Rodriguez MD Primary Care Provider [phone] Sharmila Davis APRN ANIMAL COP-C Unavailable [phone] Linda Block MD Unavailable [phone] Encounter Details Date Type Department Care Team (Late st Contact Info) Description 11/19/2011 Abstract [facility] [address] [place] [address] Palomo Ponce MD [address] [place] [phone] Social History Tobacco Use Types Packs/Day Years [...] Contact Info) Description 09/25/2024 2:00 PM SUPERVISOR SAFETY DEPOSIT Appointment [facility] [address] [place] [address] Zayra Powell, FLIGHT SECURITY SPECIALIST [address] [place] [address] 10/16/2024 3:30 PM SUPERVISOR SAFETY DEPOSIT Office Visit [facility] [address] [place] [address] Brit Gonzáles MD 619 [place] [address] documented as of this encounter Visit Diagnoses Diagnosis Pain in joint, pelvic region and thigh documented in this encounter Care Teams Waste Handling Technician Relationship Specialty Start Date End Date Megan Infante MD [address] [place] [address] PCP - General FAMILY PRACTICE 04/06/16 Piyush Pandey MD [place] Filling Station Attendant CARDIOVASCULAR DISEASE 04/06/16 12/28/23 Sharmila Davis, SENIOR CONTROLS ENGINEER, ANIMAL COP-C [address] [facility] [address] [place] [address] NURSE PRACTITIONER 01/04/17 04/03/24 Linda Block MD 619 [facility] [address] [place] [address] [place] Filling Station Attendant CLINICAL CARDIAC ELECTROPHYSIOLOGY 02/08/17 04/12/23 documented as of this encounter
--- OUTSIDE RECORDS SUMMARY | 2024-09-03 20:48 | XMS_ITS | Encounter Summary ---
Author Organization [facility] Address [address] [place] [address]. [place] [address] [place] [address] Care Team Providers Care Lift Driver Name Role Phone Piyush Pandey MD Unavailable Unavailabl Megan Leos MD Primary Care Provider [phone] Sharmila Davis APRN MANUFACTURING ELECTRICIAN-C Unavailable Linda Block MD Unavailable [phone] Encounter Details Date Type Department Care Team (Late st Contact Info) Description 04/14/2001 Abstract [facility] [address] [place] [address] , Generic MD Nikhil Social [...] st Contact Info) Description 09/25/2024 2:00 PM WELCOME WAGON HOST/HOSTESS Appointment [facility] [address] [place] [address] Zayra Powell, GOLF RANGE ATTENDANT [address] [place] [address] 10/16/2024 3:30 PM WELCOME WAGON HOST/HOSTESS Office Visit [facility] [address] [place] [address] Brit Gonzáles MD [address] [place] [address] documented as of this encounter Visit Diagnoses Not on filedocumented in this encounter Care Teams Lift Driver Relationship Specialty Start Date End Date Megan Infante MD [address] [facility] [place] [address] PCP - General FAMILY PRACTICE 04/06/16 Piyush Pandey MD [place] Realty Loan Specialist CARDIOVASCULAR DISEASE 04/06/16 12/28/23 Sharmila aDvis APRN, MANUFACTURING ELECTRICIAN-C 619 [facility] [address] [place] [address] NURSE PRACTITIONER 01/04/17 04/03/24 Linda Block MD 619 [facility] [address] [place] [address] [place] Realty Loan Specialist CLINICAL CARDIAC ELECTROPHYSIOLOGY 02/08/17 04/12/23 documented as of this encounter
--- OUTSIDE RECORDS SUMMARY | 2024-09-03 20:48 | XMS_ITS | Encounter Summary ---
Author Organization [facility] Address [address] [place] [address]. [place] [address] [place] [address] Care Team Providers Care Welfare Investigator Name Role Phone Piyush Pandey MD Unavailable UnavailMegan Rodriguez MD Primary Care Provider [phone] Sharmila Davis APRN, E COMMERCE RETAILER-C Unavailable Linda Block MD Unavailable [phone] Encounter Details Date Type Department Care Team (Late st Contact Info) Description 04/02/[address] [facility] [place] [address] [place] [address] Matias Mac MD [address] [place] [address] Social History Tobacco Use Types Packs/Day Years [...] Contact Info) Description 09/25/2024 2:00 PM RESEARCH & INSIGHTS EXECUTIVE Appointment [facility] [address] [place] [address] Zayra Powell, ANNOUNCER [address] [place] [address] 10/16/2024 3:30 PM RESEARCH & INSIGHTS EXECUTIVE Office Visit [facility] Gutierrez[address] [place] [address] Brit Gonzáles MD 619 [place] [address] documented as of this encounter Visit Diagnoses Diagnosis Hematuria Hematuria, unspecified documented in this encounter Care Teams Welfare Investigator Relationship Specialty Start Date End Date Megan Infante MD [address] [place] [address] PCP - General FAMILY PRACTICE 04/06/16 Piyush Pandey MD [place] Bank Clerk CARDIOVASCULAR DISEASE 04/06/16 12/28/23 Sharmila Davis, ADOLESCENT PSYCHIATRIST, E COMMERCE RETAILER-C 619 [facility] [address] [place] [address] NURSE PRACTITIONER 01/04/17 04/03/24 Linda Block MD 619 [facility] [place] [address] [place] Bank Clerk CLINICAL CARDIAC ELECTROPHYSIOLOGY 02/08/17 04/12/23 documented as of this encounter
--- OUTSIDE RECORDS SUMMARY | 2024-09-03 20:48 | XMS_ITS | Encounter Summary ---
Author Organization [facility] Address [address] [place] [address]. [place] [address] [place] [address] Care Team Providers Care Marker Delivery Name Role Phone Piyush Pandey MD Unavailable UnavailMegan Rodriguez MD Primary Care Provider [phone] Sharmila Davis APRN FIELD PROJECT MANAGER-C Unavailable Linda Block MD Unavailable [phone] Encounter Details Date Type Department Care Team (Late st Contact Info) Description 07/21/2007 Abstract [facility] [address] [place] [address] Palomo Ponce MD [facility] [place] [address] Social History Tobacco Use Types [...] st Contact Info) Description 09/25/2024 2:00 PM HEAD OF DESIGN Appointment [facility] [address] [address] Zayra Powell, TAKE AWAY WORKER [address] [place] [address] 10/16/2024 3:30 PM HEAD OF DESIGN Office Visit [facility] [place] [address] Brit Gonzáles MD 619 [place] [address] documented as of this encounter Visit Diagnoses Not on filedocumented in this encounter Care Teams Marker Delivery Relationship Specialty Start Date End Date Megan Infante MD [address] [place] [address] PCP - General FAMILY PRACTICE 04/06/16 Piyush Pandey MD [place] Mica Spreader CARDIOVASCULAR DISEASE 04/06/16 12/28/23 Sharmila Davis, DANNY, FIELD PROJECT MANAGER-C 619 [facility] [address] [place] [address] NURSE PRACTITIONER 01/04/17 04/03/24 Linda Block MD 619 [facility] [address] [place] [address] [place] Mica Spreader CLINICAL CARDIAC ELECTROPHYSIOLOGY 02/08/17 04/12/23 documented as of this encounter
--- OUTSIDE RECORDS SUMMARY | 2024-09-03 20:48 | XMS_ITS | Encounter Summary ---
Author Organization [facility] Address [facility] [place] [address] [place] [address] Care Team Providers Care Photonics Engineering Technician Name Role Phone Piyush Pandey MD Unavailable Unavailabl e Megan Infante MD Primary Care Provider [phone] Sharmila Davis APRN FILM SOUND COORDINATOR-C Unavailable Marlee Vega MD Unavailable [phone] Jeff Grace MD Unavailable Encounter Details Date Type Department Care Team (Late st Contact Info) Description 04/13/2012 Abstract [facility] [address] [place] [address] , Generic Conversion, Social History Tobacco Use [...] st Contact Info) Description 09/25/2024 2:00 PM RECRUITING ASSOCIATE Appointment [facility] [address] [place] [address] Zayra Powell, BARREL HEADER [address] [place] [address] 10/16/2024 3:30 PM RECRUITING ASSOCIATE Office Visit [facility] [address] [place] [address] Brit Gonzáles MD 619 [place] [address] documented as of this encounter Procedures Procedure Name Priority Date/Time Associated Diagnosis Comments ECG 12-LEAD Routine 04/13/2012 8:18 AM CDT documented in this encounter Results * ECG 12 lead (04/13/2012 8:18 AM CDT) 04/13/2012 8:18 AM CDT Narrative [facility] - 04/14/2012 12:25 AM CDT ? [facility] ? [address] [place], [place] ??[address] ? Test Date: ?2012-04-13 Pat Name: ? OBIE BETHANY ?Department: ?? 1 ? Room: ? 0404AA Gender: ? M ?Home School Liaison Officer: ?? JM : ?1955 ? Requested By: MARLEE VEGA Order Number: [id number] ?Sage LANDRY: ?? Armand Lentz ? Measurements Intervals ?[place] ? Rate: ? 85 ? P: ? DE: ?QRS: ?-12 QRSD: ? 104 ?T: ?162 QT: ? 422 ? QTc: ?502 ? Interpretive Statements Atrial fibrillation with premature ventricular or aberrantly conducted complexes Minimal voltage criteria for LVH, may be normal variant ST & T wave abnormality, consider lateral ischemia or digitalis effect Prolonged QT Abnormal ECG Procedure Note Eun Landry, - 04/19/2019 [facility] [address] [place] [address] Test Date: 2012-04-13 Pat Name: OBIE SIMS Department: 1 [facility]: M Home School Liaison Officer: LISA : 1955 Requested By: MARLEE VEGA Order Number: [id number] Reading MD: Armand Lentz Measurements Intervals [place] Rate: 85 P: DE: QRS: -12 QRSD: 104 T: 162 QT: 422 QTc: 502 Interpretive Statements Atrial fibrillation with premature ventricular or aberrantly conducted complexes Minimal voltage criteria for LVH, may be normal variant ST & T wave abnormality, consider lateral ischemia or digitalis effect Prolonged QT Abnormal ECG us Generic Conversion Md LANDRY ECG ORDERABLES Final R esult [facility] documented in this encounter Visit Diagnoses Not on filedocumented in this encounter Care Teams Photonics Engineering Technician Relationship Specialty Start Date End Date Megan Infante MD [address] [facility] [place] [address] PCP - General FAMILY PRACTICE 04/06/16 Piyush Pandey MD [place] Supervisor Feed Mill CARDIOVASCULAR DISEASE 04/06/16 12/28/23 Sharmila Davis, ELECTRONIC CONTROLS REPAIRER SUPERVISOR, FILM SOUND COORDINATOR-C [address] [facility] 47 [place] [address] NURSE PRACTITIONER 01/04/17 04/03/24 Marlee Vega MD [address] [address] [place] Supervisor Feed Mill CLINICAL CARDIAC ELECTROPHYSIOLOGY 02/08/17 04/12/23 Jeff Grace MD [address] [facility] [address] [place] [address] Consulting Physician INTERNAL MEDICINE 02/20/19 6 3 documented as of this encounter
--- OUTSIDE RECORDS SUMMARY | 2024-09-03 20:48 | XMS_ITS | Encounter Summary ---
Author Organization [facility] Address [address] [place] [address]. [place] [address] [place] [address] Care Team Providers Care Maintenance Supervisor Mechanical Name Role Phone Piyush Pandey MD Unavailable Unavailabl Megan Leos MD Primary Care Provider [phone] Sharmila Davis APRN, WIPER BLENDER-C Unavailable Linda Block MD Unavailable [phone] Encounter Details Date Type Department Care Team (Late st Contact Info) Description 12/20/2000 Abstract [facility] [address] [place] [address] , Generic MD Nikhil Social [...] Contact Info) Description 09/25/2024 2:00 PM MOTOR COACH BUS DRIVER Appointment [facility] [address] [place] [address] Zayra Powell, PULLEY MORTISER OPERATOR [address] [place] [address] 10/16/2024 3:30 PM MOTOR COACH BUS DRIVER Office Visit [facility] [address] [place] [phone] Brit Gonzáles MD [address] [place] [address] documented as of this encounter Visit Diagnoses Not on filedocumented in this encounter Care Teams Maintenance Supervisor Mechanical Relationship Specialty Start Date End Date Megan Infante MD [address] [facility] [place] [address] PCP - General FAMILY PRACTICE 04/06/16 Piyush Pandey MD [place] Special Delivery Carrier CARDIOVASCULAR DISEASE 04/06/16 12/28/23 Sharmila Davis APRN, WIPER BLENDER-C 619 [facility] [address] [place] [address] NURSE PRACTITIONER 01/04/17 04/03/24 Linda Block MD 619 [facility] [address] [place] [address] [place] Special Delivery Carrier CLINICAL CARDIAC ELECTROPHYSIOLOGY 02/08/17 04/12/23 documented as of this encounter
--- OUTSIDE RECORDS SUMMARY | 2024-09-03 20:48 | XMS_ITS | Encounter Summary ---
Author Organization [facility] Address [facility] [place] [address] [place] [address] Care Team Providers Care Operations Advisor Name Role Phone Piyush Pandey MD Unavailable Unavailabl Megan Leos MD Primary Care Provider [phone] Sharmila Davis APRN PRACTICE PHYSICIAN-C Unavailable Linda Block MD Unavailable [phone] Encounter Details Date Type Department Care Team (Late st Contact Info) Description 03/17/2012 Abstract [facility] Cardiology - [facility] [address] [place] [address] Piyush Pandey MD Social History Tobacco Use [...] Contact Info) Description 09/25/2024 2:00 PM STORE GROCERY MERCHANDISER Appointment [facility] [address] [place] [address] Zayra Powell, ERP MANAGER [address] [place] [address] [address] 10/16/2024 3:30 PM STORE GROCERY MERCHANDISER Office Visit [facility] [address] [place] [phone] Brit Gonzáles MD 619 [place] [address] documented as of this encounter Visit Diagnoses Diagnosis Aortic valve disorder Aortic valve disorders documented in this encounter Care Teams Operations Advisor Relationship Specialty Start Date End Date Megan Infante MD 1285 [facility] [place] [address] PCP - General FAMILY PRACTICE 04/06/16 Piyuhs Pandey MD [place] Display Manager CARDIOVASCULAR DISEASE 04/06/16 12/28/23 Sharmila Davis, GEOPHYSICS SCIENTIST, PRACTICE PHYSICIAN-C [address] [facility] [address] [place] [address] NURSE PRACTITIONER 01/04/17 04/03/24 Linda Block MD 619 [facility] [address] [place] [address] [place] Display Manager CLINICAL CARDIAC ELECTROPHYSIOLOGY 02/08/17 04/12/23 documented as of this encounter
--- OUTSIDE RECORDS SUMMARY | 2024-09-03 20:48 | XMS_ITS | Encounter Summary ---
Author Organization [facility] Address [address] [place] [address]. [place] [address] [place] [address] Care Team Providers Care Placement Coordinator Name Role Phone Piyush Pandey MD Unavailable UnavailMegan Rodriguez MD Primary Care Provider [phone] Sharmila Davis APRN, INTERNET RESEARCHER-C Unavailable Linda Block MD Unavailable [phone] Encounter Details Date Type Department Care Team (Late st Contact Info) Description 09/09/[address] [facility] [address] [place] [address] Matias Mac MD [address] [place] [address] Social History Tobacco Use Types Packs/Day Years [...] Contact Info) Description 09/25/2024 2:00 PM BUSINESS CENTER ATTENDANT Appointment [facility] [address] [place] [address] Zayra Powell FNP [address] [place] [address] 10/16/2024 3:30 PM BUSINESS CENTER ATTENDANT Office Visit [facility] [address] [place] [address] Brit Gonzáles MD [address]19 [place] [address] documented as of this encounter Visit Diagnoses Diagnosis Aortic valve disorder Aortic valve disorders documented in this encounter Care Teams Placement Coordinator Relationship Specialty Start Date End Date Megan Infante MD [address] [place] [address] PCP - General FAMILY PRACTICE 04/06/16 Piyush Pandey MD [place] Information Developer CARDIOVASCULAR DISEASE 04/06/16 12/28/23 Sharmila Davis, AIR CONDITIONING UNIT ASSEMBLER, INTERNET RESEARCHER-C 619 [facility] [address] [place] [address] NURSE PRACTITIONER 01/04/17 04/03/24 Linda Block MD 619 [facility] [address] [place] [address] [place] Information Developer CLINICAL CARDIAC ELECTROPHYSIOLOGY 02/08/17 04/12/23 documented as of this encounter
--- OUTSIDE RECORDS SUMMARY | 2024-09-03 20:48 | XMS_ITS | Encounter Summary ---
Author Organization [facility] Address [address] [place] [address]. [place] [address] [place] [address] Care Team Providers Care Child Care Assistant Name Role Phone Piyush Pandey MD Unavailable UnavailMegan Rodriguez MD Primary Care Provider [phone] Sharmila Davis APRN, LATHE TURNER-C Unavailable Linda Block MD Unavailable [phone] Encounter Details Date Type Department Care Team (Late st Contact Info) Description 09/11/[address] [facility] [address] [place] [address] Matias Mac MD [address] [place] [address] Social History Tobacco Use Types Packs/Day Years [...] st Contact Info) Description 09/25/2024 2:00 PM COMPRESS ENGINEER Appointment [facility] [address] [place] [address] Zayra Powell FNP [address] [place] [address] 10/16/2024 3:30 PM COMPRESS ENGINEER Office Visit [facility] [address] [place] [address] Brit Gonzáles MD 619 [place] [address] documented as of this encounter Visit Diagnoses Diagnosis Aortic valve disorder Aortic valve disorders documented in this encounter Care Teams Child Care Assistant Relationship Specialty Start Date End Date Megan Infante MD [address] [place] [address] PCP - General FAMILY PRACTICE 04/06/16 Piyush Pandey MD [place] Tank Truck Engine Mechanic CARDIOVASCULAR DISEASE 04/06/16 12/28/23 Sharmila Davis, CALCINER FEEDER, LATHE TURNER-C 619 [facility] [address] [place] [phone] NURSE PRACTITIONER 01/04/17 04/03/24 Linda Block MD 619 [facility] [address] [place] [address] [place] Tank Truck Engine Mechanic CLINICAL CARDIAC ELECTROPHYSIOLOGY 02/08/17 04/12/23 documented as of this encounter
--- OUTSIDE RECORDS SUMMARY | 2024-09-03 20:48 | XMS_ITS | Encounter Summary ---
Author Organization [facility] Address [address] [place] [address]. [place] [address] [place] [address] Care Team Providers Care Crop Production Advisor Name Role Phone Piyush Pandey MD Unavailable Unavailabl Megan Leos MD Primary Care Provider [phone] Sharmila Davis APRN, PRODUCT/INDUSTRY CONSULTANT-C Unavailable Linda Block MD Unavailable [phone] Encounter Details Date Type Department Care Team (Late st Contact Info) Description 10/01/2003 Abstract [facility] [address] [place] [address] , Generic MD Nikhil Social [...] Contact Info) Description 09/25/2024 2:00 PM CUSTOMER SERVICE REP Appointment [facility] [address] [place] [address] Zayra Powell, TEST AND RESEARCH REACTOR OPERATOR [address] [place] [address] 10/16/2024 3:30 PM CUSTOMER SERVICE REP Office Visit [facility] [address] [place] [phone] Brit Gonzáles MD [address] [place] [address] documented as of this encounter Visit Diagnoses Not on filedocumented in this encounter Care Teams Crop Production Advisor Relationship Specialty Start Date End Date Megan Infante MD [address] [facility] [place] [phone] PCP - General FAMILY PRACTICE 04/06/16 Piyush Pandey MD [place] Line Mechanic CARDIOVASCULAR DISEASE 04/06/16 12/28/23 Sharmila Davis APRN, PRODUCT/INDUSTRY CONSULTANT-C 619 [facility] [address] [place] [address] NURSE PRACTITIONER 01/04/17 04/03/24 Linda Block MD 619 [facility] [address] [place] [address] [place] Line Mechanic CLINICAL CARDIAC ELECTROPHYSIOLOGY 02/08/17 04/12/23 documented as of this encounter
--- OUTSIDE RECORDS SUMMARY | 2024-09-03 20:48 | XMS_ITS | Encounter Summary ---
Author Organization [facility] Address [address] [place] [address]. [place] [address] [place] [address] Care Team Providers Care Pharmacy Technician Name Role Phone Piyush Pandey MD Unavailable Unavailabl Megan Leos MD Primary Care Provider [phone] Sharmila Davis APRN, ED TEACHER-C Unavailable Linda Block MD Unavailable [phone] Encounter Details Date Type Department Care Team (Late st Contact Info) Description 01/19/2003 Abstract [facility] [address] [place] [address] , Generic MD Nikhil Social [...] Contact Info) Description 09/25/2024 2:00 PM TILE PICKER Appointment [facility] [address] [place] [address] Zayra Powell, PL SQL DEVELOPER [address] [place] [address] 10/16/2024 3:30 PM TILE PICKER Office Visit [facility] [address] [place] [phone] Brit Gonzáles MD [address] [place] [address] documented as of this encounter Visit Diagnoses Not on filedocumented in this encounter Care Teams Pharmacy Technician Relationship Specialty Start Date End Date Megan Infante MD [address] [facility] [place] [address] PCP - General FAMILY PRACTICE 04/06/16 Piyush Pandey MD [place] Clinician Oncology CARDIOVASCULAR DISEASE 04/06/16 12/28/23 Sharmila Davis APRN, ED TEACHER-C 619 [facility] [address] [place] [address] NURSE PRACTITIONER 01/04/17 04/03/24 Linda Block MD 619 [facility] [address] [place] [address] [place] Clinician Oncology CLINICAL CARDIAC ELECTROPHYSIOLOGY 02/08/17 04/12/23 documented as of this encounter
--- OUTSIDE RECORDS SUMMARY | 2024-09-03 20:48 | XMS_ITS | Encounter Summary ---
Author Organization [facility] Address [address] [place] [address]. [place] [address] [place] [address] Care Team Providers Care Delphi Developer Name Role Phone Piyush Pandey MD Unavailable UnavailMegan Rodrigeuz MD Primary Care Provider [phone] Sharmila Davis APRN GLOVE PRINTER-C Unavailable Linda Block MD Unavailable [phone] Encounter Details Date Type Department Care Team (Late st Contact Info) Description 11/04/[address] [facility] [address] [place] [address] Palomo Ponce MD [address] [place] [phone] Social History Tobacco Use Types Packs/Day [...] st Contact Info) Description 09/25/2024 2:00 PM SUPERVISORY HISTORIAN Appointment [facility] [address] [place] [address] Zayra Powell FNP [address] [place] [address] 10/16/2024 3:30 PM SUPERVISORY HISTORIAN Office Visit [facility] [address] [place] [address] Brit Gonzáles MD 619 [place] [address] documented as of this encounter Visit Diagnoses Diagnosis Primary localized osteoarthrosis, pelvic region and thigh documented in this encounter Care Teams Delphi Developer Relationship Specialty Start Date End Date Megan Infante MD [address] [place] [phone] PCP - General FAMILY PRACTICE 04/06/16 Piyush Pandey MD [place] [employer] Hand CARDIOVASCULAR DISEASE 04/06/16 12/28/23 Sharmila Davis APRN, GLOVE PRINTER-C 619 [facility] [address] [place] [address] NURSE PRACTITIONER 01/04/17 04/03/24 Linda Block MD 619 [facility] [address] [place] [address] [place] Hand CLINICAL CARDIAC ELECTROPHYSIOLOGY 02/08/17 04/12/23 documented as of this encounter
--- OUTSIDE RECORDS SUMMARY | 2024-09-03 20:48 | XMS_ITS | Encounter Summary ---
Author Organization [facility] Address [address] [place] [address]. [place] [address] [place] [address] Care Team Providers Care Electronic Technologist Name Role Phone Piyush Pandey MD Unavailable UnavailMegan Rodriguez MD Primary Care Provider [phone] Sharmila Davis APRN, MINING MANAGER-C Unavailable [phone] Linda Block MD Unavailable [phone] Encounter Details Date Type Department Care Team (Late st Contact Info) Description 06/07/[address] [facility] [address] [place] [address] Matias Mac MD [address] [place] [address] Social History Tobacco Use Types Packs/Day Years [...] Contact Info) Description 09/25/2024 2:00 PM RN LIAISON Appointment [facility] [address] [place] [address] Zayra Powell, ELECTRICAL TIMING DEVICE CALIBRATOR [address] [place] [address] 10/16/2024 3:30 PM RN LIAISON Office Visit [facility] [address] [address] Brit Gonzáles MD 619 [place] [address] documented as of this encounter Visit Diagnoses Not on filedocumented in this encounter Care Teams Electronic Technologist Relationship Specialty Start Date End Date Megan Infante MD [address] [place] [address] PCP - General FAMILY PRACTICE 04/06/16 Piyush Pandey MD [employer] Architect CARDIOVASCULAR DISEASE 04/06/16 12/28/23 Sharmila Davis, CERTIFIED DIETARY MANAGER, MINING MANAGER-C 619 [facility] [address] [place] [phone] NURSE PRACTITIONER 01/04/17 04/03/24 Linda Block MD 619 [facility] [address] [place] [address] [employer] Architect CLINICAL CARDIAC ELECTROPHYSIOLOGY 02/08/17 04/12/23 documented as of this encounter
--- OUTSIDE RECORDS SUMMARY | 2024-09-03 20:48 | XMS_ITS | Encounter Summary ---
Author Organization [facility] Address [address] [place] [address]. [place] [address] [place] [address] Care Team Providers Care Anesthesia Technician Name Role Phone Piyush Pandey MD Unavailable UnavailMegan Rodriguez MD Primary Care Provider [phone] Sharmila Davis APRN PICKUP DRIVER-C Unavailable Linda Block MD Unavailable [phone] Encounter Details Date Type Department Care Team (Late st Contact Info) Description 12/17/2011 Abstract [facility] [address] [place] [address] Palomo Ponce MD [address] [place] [phone] Social History Tobacco Use Types Packs/Day Years [...] (Late Contact Info) Description 09/25/2024 2:00 PM EDI SPECIALIST Appointment [facility] [address] [place] [address] Zayra Powell, CONSUMER STUDIES PROFESSOR [address] [place] [address] 10/16/2024 3:30 PM EDI SPECIALIST Office Visit [facility] [address] [place] [address] Brit Gonzáles MD 619 [place] [address] documented as of this encounter Visit Diagnoses Diagnosis Follow-up examination, following other surgery documented in this encounter Care Teams Anesthesia Technician Relationship Specialty Start Date End Date Megan Infante MD [address] [place] [phone] PCP - General FAMILY PRACTICE 04/06/16 Piyush Pandey MD [place] Oil Pit Attendant CARDIOVASCULAR DISEASE 04/06/16 12/28/23 Sharmila Davis APRN, PICKUP DRIVER-C 619 [facility] [address] [place] [phone] NURSE PRACTITIONER 01/04/17 04/03/24 Linda Block MD 619 [facility] [address] [place] [phone] [place] Oil Pit Attendant CLINICAL CARDIAC ELECTROPHYSIOLOGY 02/08/17 04/12/23 documented as of this encounter
--- OUTSIDE RECORDS SUMMARY | 2024-09-03 20:48 | XMS_ITS | Encounter Summary ---
Author Organization [facility] Address [facility] [place] [address] [place] [address] Care Team Providers Care Qa Developer Name Role Phone Piyush Pandey MD Unavailable Unavailabl e Megan Infante MD Primary Care Provider [phone] Sharmila Davis APRN RESERVATIONS AND TICKETING AGENT-C Unavailable Linda Vega MD Unavailable [phone] Jeff Grace MD Unavailable Encounter Details Date Type Department Care Team (Late st Contact Info) Description 04/12/2012 Abstract [facility] [address] [place] [address] , Generic Conversion, Social History Tobacco Use [...] st Contact Info) Description 09/25/2024 2:00 PM CROZER Appointment [facility] [address] [place] [address] Zayra Powell, GAS USAGE METER CLERK [address] [place] [address] 10/16/2024 3:30 PM CROZER Office Visit [facility] [address] [place] [address] Brit Gonzáles MD 619 [place] [address] Pending Results Name Type Priority Associated Diagnoses Date /Time ECG 12 lead EKG-NonRad Routine 04/12/2012 5: 40 AM CDT documented as of this encounter Procedures Procedure Name Priority Date/Time Associated Diagnosis Comments ECG 12-LEAD Routine 04/12/2012 8:00 AM CDT ECG 12-LEAD Routine 04/12/2012 5:40 AM CDT Procedure Note - 04/12/2012 5:40 AM CDTThis note is in progress. [facility] Test Date: 2012-04-12 Pat Name: OBIE SIMS Department: -1 Room: [address] [place] [address] Gender: M Internist: : 1955 Requested By: Linda Vega Order Number: [id number] Reading MD: Armand Lentz Measurements Intervals [place] Rate: 60 P: CA: QRS: -7 QRSD: 112 T: 126 QT: 464 QTc: 464 Interpretive Statements Atrial fibrillation ST & T wave abnormality, consider lateral ischemia or digitalis effect Prolonged QT Abnormal ECG documented in this encounter Results * ECG 12 lead (04/12/2012 8:00 AM CDT) 04/12/2012 8:00 AM CDT Narrative [facility] - 04/12/2012 6:59 PM CDT ? [facility] ? [address] [place], [place] ??[address] ? Test Date: ?2012-04-12 Pat Name: ? OBIE SIMS ?Department: ?? 1 ? Room: ? 0404AA Gender: ? M ?Internist: ?? DMS : ?1955 ? Requested By: LINDA VEGA Order Number: [id number] ?Reading MD: ?? Armand Cliffordti ? Measurements Intervals ?[place] ? Rate: ? 70 ? P: ? CA: ?QRS: ?-9 QRSD: ? 106 ?T: ?127 QT: ? 452 ? QTc: ?488 ? Interpretive Statements Atrial fibrillation Incomplete left bundle branch block Minimal voltage criteria for LVH, may be normal variant ST & T wave abnormality, consider lateral ischemia or digitalis effect Prolonged QT Abnormal ECG Procedure Note , Generic ConversionMD - 04/19/2019 [facility] [address] [place] [address] Test Date: 2012-04-12 Pat Name: OBIE SIMS Department: 1 Room: [facility] Gender: M Internist: MILLER : 1955 Requested By: LINDA VEGA Order Number: [id number] Reading MD: Armand Lentz Measurements Intervals [place] Rate: 70 P: CA: QRS: -9 QRSD: 106 T: 127 QT: 452 QTc: 488 Interpretive Statements Atrial fibrillation Incomplete left bundle branch block Minimal voltage criteria for LVH, may be normal variant ST & T wave abnormality, consider lateral ischemia or digitalis effect Prolonged QT Abnormal ECG us Generic Conversion Md LANDRY ECG ORDERABLES Final R esult [facility] documented in this encounter Visit Diagnoses Not on filedocumented in this encounter Care Teams Qa Developer Relationship Specialty Start Date End Date Megan Infante MD [address] [facility] [place] [phone] PCP - General FAMILY PRACTICE 04/06/16 Piyush Pandey MD [place] Element Setter CARDIOVASCULAR DISEASE 04/06/16 12/28/23 Sharmila Davis APRN, RESERVATIONS AND TICKETING AGENT-C 619 [facility] [address] [place] [address] NURSE PRACTITIONER 01/04/17 04/03/24 Linda Vega MD 619 [facility] [address] [place] [phone] [place] Element Setter CLINICAL CARDIAC ELECTROPHYSIOLOGY 02/08/17 04/12/23 Jeff Grace MD [address] [address] [place] [address] Consulting Physician INTERNAL MEDICINE 02/20/19 3 documented as of this encounter
--- OUTSIDE RECORDS SUMMARY | 2024-09-03 20:48 | XMS_ITS | Encounter Summary ---
Author Organization [facility] Address [address] [place] [address]. [place] [address] [place] [address] Care Team Providers Care Director Safety Council Name Role Phone Piyush Pandey MD Unavailable UnavailMegan Rodriguez MD Primary Care Provider [phone] Sharmila Davis APRN, RF TEST TECHNICIAN-C Unavailable Linda Block MD Unavailable [phone] Encounter Details Date Type Department Care Team (Late st Contact Info) Description 04/05/[address] [facility] [address] [place] [address] Matias Mac MD [address] [place] [address] Social History Tobacco Use Types Packs/Day Years [...] Contact Info) Description 09/25/2024 2:00 PM CONTRACT NEGOTIATION MANAGER Appointment [facility] [address] [place] [address] Zayra Powell FNP [address] [place] [address] 10/16/2024 3:30 PM CONTRACT NEGOTIATION MANAGER Office Visit [facility] [address] [place] [address] Brit Gonzáles MD 619 [place] [address] documented as of this encounter Visit Diagnoses Diagnosis Follow-up examination following completed treatment with high-risk medications, not elsewhere classified documented in this encounter Care Teams Director Safety Council Relationship Specialty Start Date End Date Megan Infante MD [address] [place] [phone] PCP - General FAMILY PRACTICE 04/06/16 Piyush Pandey MD [place] Store Promoter CARDIOVASCULAR DISEASE 04/06/16 12/28/23 Sharmila Davis APRN, RF TEST TECHNICIAN-C 619 [facility] [address] [place] [phone] NURSE PRACTITIONER 01/04/17 04/03/24 Linda Block MD [address] [facility] [address] [place] [address] [place] Store Promoter CLINICAL CARDIAC ELECTROPHYSIOLOGY 02/08/17 04/12/23 documented as of this encounter
--- OUTSIDE RECORDS SUMMARY | 2024-09-03 20:48 | XMS_ITS | Encounter Summary ---
Author Organization [facility] Address [address] [place] [address]. [place] [address] [place] [address] Care Team Providers Care Tensile Tester Name Role Phone Piyush Pandey MD, Amy E MD Primary Care Provider [phone] Encounter Details Date Type Department Care Team (Late st Contact Info) Description 01/05/2011 [facility] AT [address] [address] Eun Tovar MD Social History [...] st Contact Info) Description 09/25/2024 2:00 PM WOOL BATTING WORKER Appointment [facility] [address] [place] [address] Zayra Powell, PMP CERTIFIED PROJECT MANAGER [address] [place] [address] 10/16/2024 3:30 PM WOOL BATTING WORKER Office Visit [facility] [address] [place] [phone] Brit Gonzáles MD [address] [place] [address] documented as of this encounter Visit Diagnoses Not on filedocumented in this encounter Care Teams Tensile Tester Relationship Specialty Start Date End Date Megan Infante MD [address] [facility] [place] [address] PCP - General FAMILY PRACTICE 04/06/16 Piyush Pandey MD [place] Learning And Development Consultant CARDIOVASCULAR DISEASE 04/06/16 12/28/23 documented as of this encounter
--- OUTSIDE RECORDS SUMMARY | 2024-09-03 20:48 | XMS_ITS | Encounter Summary ---
Author Organization [facility] Address [facility] [place] [address] [place] [address] Care Team Providers Care Healthcare Corporate Account Director Name Role Phone Piyush Pandey MD Unavailable Unavailabl e Megan Infante MD Primary Care Provider [phone] Sharmila Davis APRN ELECTRICAL DESIGN TECHNICIAN-C Unavailable Marlee Vega MD Unavailable [phone] Jeff Grace MD Unavailable Encounter Details Date Type Department Care Team (Late st Contact Info) Description 04/15/2012 Abstract [facility] [address] [place] [address] , Generic Conversion, Social History Tobacco Use [...] st Contact Info) Description 09/25/2024 2:00 PM ICT CUSTOMER SUPPORT OFFICER Appointment [facility] [address] [place] [address] Zayra Powell, POST HOLE DIGGER [address] [place] [address] 10/16/2024 3:30 PM ICT CUSTOMER SUPPORT OFFICER Office Visit [facility] [address] [place] [address] Brit Gonzáles MD [address] [place] [address] documented as of this encounter Procedures Procedure Name Priority Date/Time Associated Diagnosis Comments ECG 12-LEAD Routine 04/15/2012 8:08 AM CDT documented in this encounter Results * ECG 12 lead (04/15/2012 8:08 AM CDT) 04/15/2012 8:08 AM CDT Narrative [facility] - 04/15/2012 4:47 PM CDT ? [facility] ? [address] [place], [place] ??[address] ? Test Date: ?2012-04-15 Pat Name: ? OBIE SIMS ?Department: ?? 1 ? Room: ? 0404AA Gender: ? M ?Torch Burner: ?? WILLAM HERRON: ?1955 ? Requested By: MARLEE VEGA Order Number: [id number] ?Sage LANDRY: ?? Armand Lentz ? Measurements Intervals ?[place] ? Rate: ? 74 ? P: ? MT: ?QRS: ?-12 QRSD: ? 108 ?T: ?139 QT: ? 424 ? QTc: ?470 ? Interpretive Statements Sinus rhythm with occasional premature ventricular complexes Incomplete left bundle branch block Left ventricular hypertrophy with repolarization abnormality Abnormal ECG Procedure Note , Eun Tejeda MD - 04/19/2019 [facility] [address] [place] [address] Test Date: 2012-04-15 Pat Name: OBIE SIMS Department: 1 Room: [facility] Gender: M Torch Burner: CHRISChema : 1955 Requested By: MARLEE VEGA Order Number: [id number] Reading MD: Armand Lentz Measurements Intervals [place] Rate: 74 P: MT: QRS: -12 QRSD: 108 T: 139 QT: 424 QTc: 470 Interpretive Statements Sinus rhythm with occasional premature ventricular complexes Incomplete left bundle branch block Left ventricular hypertrophy with repolarization abnormality Abnormal ECG us Generic Conversion Md LANDRY ECG ORDERABLES Final R esult [facility] documented in this encounter Visit Diagnoses Not on filedocumented in this encounter Care Teams Healthcare Corporate Account Director Relationship Specialty Start Date End Date Megan Infante MD [address] [facility] [place] [phone] PCP - General FAMILY PRACTICE 04/06/16 Piyush Pandey MD Distant Car Builder CARDIOVASCULAR DISEASE 04/06/16 12/28/23 Sharmila Davis APRN, ELECTRICAL DESIGN TECHNICIAN-C [address] [facility] [address] [place] [phone] NURSE PRACTITIONER 01/04/17 04/03/24 Marlee Vega MD [address] [phone] Distant Car Builder CLINICAL CARDIAC ELECTROPHYSIOLOGY 02/08/17 04/12/23 Jeff Grace MD [address] [facility] [address] [phone] Consulting Physician INTERNAL MEDICINE 02/20/19 3 documented as of this encounter
--- OUTSIDE RECORDS SUMMARY | 2024-09-03 20:48 | XMS_ITS | Encounter Summary ---
Author Organization [facility] Address [address] [place] [address]. [place] [address] [place] [address] Care Team Providers Care Background Check Coordinator Name Role Phone Piyush Pandey MD Unavailable UnavailMegan Rodriguez MD Primary Care Provider [phone] Sharmila Davis APRN, PRODUCT OPERATIONS ASSOCIATE-C Unavailable Linda Block MD Unavailable [phone] Encounter Details Date Type Department Care Team (Late st Contact Info) Description 10/03/2002 Abstract [facility] CONVERSION [address] [place] [address] Matias Mac MD [address] [place] [address] Social History Tobacco Use Types Packs/Day Years [...] st Contact Info) Description 09/25/2024 2:00 PM TUNNELING MACHINE OPERATOR Appointment [facility] [address] [place] [address] Zayra Powell, PUBLIC HEALTH INSPECTOR [address] [place] [address] 10/16/2024 3:30 PM TUNNELING MACHINE OPERATOR Office Visit [facility] Gutierrez[address] [place] [address] Brit Gonzáles MD [address] [place] [address] documented as of this encounter Visit Diagnoses Not on filedocumented in this encounter Care Teams Background Check Coordinator Relationship Specialty Start Date End Date Megan Infante MD [address] [place] [phone] PCP - General FAMILY PRACTICE 04/06/16 Piyush Pandey MD [place] Almond Blancher Operator CARDIOVASCULAR DISEASE 04/06/16 12/28/23 Sharmila Davis, MANAGER COST, PRODUCT OPERATIONS ASSOCIATE-C [address] [facility] [address]P57 [place] [address] NURSE PRACTITIONER 01/04/17 04/03/24 Linda Block MD 619 [facility] 47 [place] [address] [place] Almond Blancher Operator CLINICAL CARDIAC ELECTROPHYSIOLOGY 02/08/17 04/12/23 documented as of this encounter
--- OUTSIDE RECORDS SUMMARY | 2024-09-03 20:48 | XMS_ITS | Encounter Summary ---
Author Organization [facility] Address [address] [place] [address]. [place] [address] [place] [address] Care Team Providers Care Semiautomatic Stitcher Operator Name Role Phone Piyush Pandey MD Unavailable Unavailabl Megan Leos MD Primary Care Provider [phone] Sharmila Davis APRN MANAGER AGRICULTURE-C Unavailable Linda Block MD Unavailable [phone] Encounter Details Date Type Department Care Team (Late st Contact Info) Description 05/31/2003 Abstract [facility]VERSION [address] [place] [address] , Generic MD Nikhil Social [...] Contact Info) Description 09/25/2024 2:00 PM SECURITY BUSINESS ANALYST Appointment [facility] [address] [place] [address] Zayra Powell, POCKET FLAP CREASING MACHINE OPERATOR [address] [place] [address] 10/16/2024 3:30 PM SECURITY BUSINESS ANALYST Office Visit [facility] [address] [place] [address] Brit Gonzáles MD [address] [place] [address] documented as of this encounter Visit Diagnoses Not on filedocumented in this encounter Care Teams Semiautomatic Stitcher Operator Relationship Specialty Start Date End Date Megan Infante MD [address] [facility] [place] [address] PCP - General FAMILY PRACTICE 04/06/16 Piyush Pandey MD [place] Java Web Services Developer CARDIOVASCULAR DISEASE 04/06/16 12/28/23 Sharmila Davis APRN, MANAGER AGRICULTURE-C 619 [facility] [address] [place] [address] NURSE PRACTITIONER 01/04/17 04/03/24 Linda Block MD 619 [facility] [address] [place] [address] [place] Java Web Services Developer CLINICAL CARDIAC ELECTROPHYSIOLOGY 02/08/17 04/12/23 documented as of this encounter
--- OUTSIDE RECORDS SUMMARY | 2024-09-03 20:48 | XMS_ITS | Encounter Summary ---
Author Organization [facility] Address [address] [place] [address]. [place] [address] [place] [address] Care Team Providers Care Multimedia Designer Name Role Phone Piyush Pandey MD Unavailable Unavailabl Megan Leos MD Primary Care Provider [phone] Sharmila Davis APRN HAND PLUG SHAPER-C Unavailable Linda Block MD Unavailable [phone] Encounter Details Date Type Department Care Team (Late st Contact Info) Description 02/28/2003 Abstract [facility] CONVERSION [address] [place] [address] , Generic MD Nikhil Social [...] st Contact Info) Description 09/25/2024 2:00 PM NOVELTY MAKER Appointment [facility] [address] [place] [address] Zayra Powell, BAROMETERS CALIBRATOR [address] [place] [address] 10/16/2024 3:30 PM NOVELTY MAKER Office Visit [facility] [address] [place] [address] Brit Gonzáles MD [address] [place] [address] documented as of this encounter Visit Diagnoses Not on filedocumented in this encounter Care Teams Multimedia Designer Relationship Specialty Start Date End Date Megan Infante MD [address] [facility] [place] [address] PCP - General FAMILY PRACTICE 04/06/16 Piyush Pandey MD [place] Chalk Machine Operator CARDIOVASCULAR DISEASE 04/06/16 12/28/23 Sharmila Davis APRN, HAND PLUG SHAPER-C 619 [facility] [address] [place] [address] NURSE PRACTITIONER 01/04/17 04/03/24 Linda Block MD 619 [facility] [address] [place] [address] [place] Chalk Machine Operator CLINICAL CARDIAC ELECTROPHYSIOLOGY 02/08/17 04/12/23 documented as of this encounter
--- OUTSIDE RECORDS SUMMARY | 2024-09-03 20:48 | XMS_ITS | Encounter Summary ---
Author Organization [facility] Address [address] [place] [address]. [place] [address] [place] [address] Care Team Providers Care Rn Chemical Dependency Name Role Phone Piyush Pandey MD Unavailable UnavailMegan Rodriguez MD Primary Care Provider [phone] Sharmila Davis APRN AIRCRAFT DESIGNER-C Unavailable Linda Block MD Unavailable [phone] Encounter Details Date Type Department Care Team (Late st Contact Info) Description 11/03/2007 Abstract [facility] CONVERSION [address] [place] [address] Palomo Ponce MD [facility] [place] [address] Social History Tobacco Use Types [...] st Contact Info) Description 09/25/2024 2:00 PM SOLVENT PLANT OPERATOR Appointment [facility] [address] [address] Zayra Powell, STEAMSHIP AGENT [address] [place] [address] 10/16/2024 3:30 PM SOLVENT PLANT OPERATOR Office Visit [facility] [place] [address] Brit Gonzáles MD 619 [place] [address] documented as of this encounter Visit Diagnoses Not on filedocumented in this encounter Care Teams Rn Chemical Dependency Relationship Specialty Start Date End Date Megan Infante MD [address] [place] [address] PCP - General FAMILY PRACTICE 04/06/16 Piyush Pandey MD [place] Brake Tester CARDIOVASCULAR DISEASE 04/06/16 12/28/23 Sharmila Davis, DANNY, AIRCRAFT DESIGNER-C 619 [facility] [address] [place] [address] NURSE PRACTITIONER 01/04/17 04/03/24 Linda Block MD 619 [facility] [address]57 [place] [address] Strawberry Brake Tester CLINICAL CARDIAC ELECTROPHYSIOLOGY 02/08/17 04/12/23 documented as of this encounter
--- OUTSIDE RECORDS SUMMARY | 2024-09-03 20:48 | XMS_ITS | Encounter Summary ---
Author Organization [facility] Address [address] [place] [address]. [place] [address] [place] [address] Care Team Providers Care Single Pointed Operator Name Role Phone Piyush Pandey MD, Amy E MD Primary Care Provider [phone] Encounter Details Date Type Department Care Team (Late st Contact Info) Description 01/29/2011 Abstract [facility] [address] [place] [phone] Eun Tovar MD Social History Tobacco [...] st Contact Info) Description 09/25/2024 2:00 PM TREASURY ASSOCIATE Appointment [facility] [address] [place] [address] Zayra Powell, SEWER REPAIRER [address] [place] [address] 10/16/2024 3:30 PM TREASURY ASSOCIATE Office Visit [facility] [address] [place] [address] Brit Gonzáles MD [address] [place] [phone] documented as of this encounter Visit Diagnoses Not on filedocumented in this encounter Care Teams Single Pointed Operator Relationship Specialty Start Date End Date Megan Infante MD [address] [facility] [place] [address] PCP - General FAMILY PRACTICE 04/06/16 Piyush Pandey MD [place] Refractory Repairer CARDIOVASCULAR DISEASE 04/06/16 12/28/23 documented as of this encounter
--- OUTSIDE RECORDS SUMMARY | 2024-09-03 20:48 | XMS_ITS | Encounter Summary ---
Author Organization [facility] Address [address] [place] [address]. [place] [address] [place] [address] Care Team Providers Care Assembler Final Name Role Phone Piyush Pandey MD Unavailable UnavailMegan Rodriguez MD Primary Care Provider [phone] Sharmila Davis APRN, EPITAXIAL REACTOR TECHNICIAN-C Unavailable [phone] Linda Block MD Unavailable [phone] Encounter Details Date Type Department Care Team (Late st Contact Info) Description 12/11/[address] [facility] [address] [place] [address] Matias Mac MD [address] [place] [address] Social History Tobacco Use Types Packs/Day Years [...] Contact Info) Description 09/25/2024 2:00 [address] [facility] [address] [place] [address] Zayra Powell FNP [address] [place] [address] 10/16/2024 3:30 PM MANAGER PHOTO Office Visit [facility] Gutierrez[address] [place] [phone] Brit Gonzáles MD 619 [place] [address] documented as of this encounter Visit Diagnoses Not on filedocumented in this encounter Care Teams Assembler Final Relationship Specialty Start Date End Date Megan Infante MD [address] [place] [address] PCP - General FAMILY PRACTICE 04/06/16 Piyush Pandey MD [place] Bar Welder CARDIOVASCULAR DISEASE 04/06/16 12/28/23 Sharmila Davis, SPECIAL DELIVERY WORKER, EPITAXIAL REACTOR TECHNICIAN-C [address] [facility] [address]P57 [place] [address] NURSE PRACTITIONER 01/04/17 04/03/24 Linda Block MD 619 [facility] [address] [place] [address] [place] Bar Welder CLINICAL CARDIAC ELECTROPHYSIOLOGY 02/08/17 04/12/23 documented as of this encounter
--- OUTSIDE RECORDS SUMMARY | 2024-09-03 20:48 | XMS_ITS | Encounter Summary ---
Author Organization [facility] Address [address] [place] [address]. [place] [address] [place] [address] Care Team Providers Care Advertising Solicitor Name Role Phone Piyush Pandey MD Unavailable UnavailMegan Rodriguez MD Primary Care Provider [phone] Sharmila Davis APRN, REHABILITATION CLERK-C Unavailable Linda Block MD Unavailable [phone] Encounter Details Date Type Department Care Team (Late st Contact Info) Description 03/29/[address] [facility] [address] [place] [address] Matias Mac MD [address] [place] [address] Social History Tobacco Use Types Packs/Day Years [...] Contact Info) Description 09/25/2024 2:00 PM SHEET METAL INSTALLER Appointment [facility] [address] [place] [address] Zayra Powell FNP [address] [place] [address] 10/16/2024 3:30 PM SHEET METAL INSTALLER Office Visit [facility] Gutierrez[address] [place] [address] Brit Gonzáles MD 619 [place] [address] documented as of this encounter Visit Diagnoses Diagnosis Hematuria Hematuria, unspecified documented in this encounter Care Teams Advertising Solicitor Relationship Specialty Start Date End Date Megan Infante MD [address] [place] [address] PCP - General FAMILY PRACTICE 04/06/16 Piyush Pandey MD [place] Order Detailer CARDIOVASCULAR DISEASE 04/06/16 12/28/23 Sharmila Davis, ELECTRON MICROSCOPIST, REHABILITATION CLERK-C 619 [facility] [address] [place] [address] NURSE PRACTITIONER 01/04/17 04/03/24 Linda Block MD 619 [facility] [address] [place] [address] [place] Order Detailer CLINICAL CARDIAC ELECTROPHYSIOLOGY 02/08/17 04/12/23 documented as of this encounter
--- OUTSIDE RECORDS SUMMARY | 2024-09-03 20:48 | XMS_ITS | Encounter Summary ---
Author Organization [facility] Address [facility] [place] [address] [place] [address] Care Team Providers Care Jewelsmith Name Role Phone Piyush Pandey MD Unavailable Unavailabl e Megan Infante MD Primary Care Provider [phone] Sharmila Davis APRN, ASSESSMENT SERVICES MANAGER-C Unavailable Linda Block MD Unavailable [phone] Encounter Details Date Type Department Care Team (Late st Contact Info) Description 04/11/2012 Abstract [facility] [address] [place] [address] Linda Block MD [address] [facility] [address] [place] [address] Social History Tobacco Use Types Packs/Day Years [...] st Contact Info) Description 09/25/2024 2:00 PM TERMITE TECHNICIAN Appointment [facility] [address] [place] [address] Zayra Powell, FLOATLIGHT POWDER MIXER [address] [place] [address] 10/16/2024 3:30 PM TERMITE TECHNICIAN [facility] 1215 [place] [address] Brit Gonzáles MD 619 [place] [address] documented as of this encounter Visit Diagnoses Diagnosis Atrial fibrillation (CMS/HCC HHS/HCC) Atrial fibrillation documented in this encounter Care Teams Jewelsmith Relationship Specialty Start Date End Date Megan Infante MD 1285 [place] [address] PCP - General FAMILY PRACTICE 04/06/16 Piyush Pandey MD [place] Roll Cutting Operator CARDIOVASCULAR DISEASE 04/06/16 12/28/23 Sharmila Davis, WASH OPERATOR, ASSESSMENT SERVICES MANAGER-C 619 [facility] [address] [place] [address] NURSE PRACTITIONER 01/04/17 04/03/24 Linda Block MD 619 [facility] [address] [place] [address] [place] Roll Cutting Operator CLINICAL CARDIAC ELECTROPHYSIOLOGY 02/08/17 04/12/23 documented as of this encounter
--- OUTSIDE RECORDS SUMMARY | 2024-09-03 20:48 | XMS_ITS | Encounter Summary ---
Author Organization [facility] Address [address] [place] [address]. [place] [address] [place] [address] Care Team Providers Care Building Dismantler Name Role Phone Piyush Pandey MD, Amy E MD Primary Care Provider [phone] Encounter Details Date Type Department Care Team (Late st Contact Info) Description 01/05/2011 Abstract [facility] [address] [place] [address] Eun Tovar MD Social History Tobacco [...] st Contact Info) Description 09/25/2024 2:00 PM UNIVERSITY REGISTRAR Appointment [facility] [address] [place] [address] Zayra Powell, EXECUTIVE RECEPTIONIST [address] [place] [address] 10/16/2024 3:30 PM UNIVERSITY REGISTRAR Office Visit [facility] [place] [address] [place] [address] Brit Gonzáles MD [address] [place] [id number] documented as of this encounter Visit Diagnoses Not on filedocumented in this encounter Care Teams Building Dismantler Relationship Specialty Start Date End Date Megan Infante MD [address] [facility] [place] [address] PCP - General FAMILY PRACTICE 04/06/16 Piyush Pandey MD [place] Leadership Intern CARDIOVASCULAR DISEASE 04/06/16 12/28/23 documented as of this encounter
--- OUTSIDE RECORDS SUMMARY | 2024-09-03 20:48 | XMS_ITS | Encounter Summary ---
Author Organization [facility] Address [address] [place] [address]. [place] [address] [place] [address] Care Team Providers Care Basket Hand Weaver Name Role Phone Piyush Pandey MD Unavailable UnavailMegan Rodriguez MD Primary Care Provider [phone] Sharmila Davis APRN, BRAZER FURNACE-C Unavailable Linda Block MD Unavailable [phone] Encounter Details Date Type Department Care Team (Late st Contact Info) Description 12/09/[address] [facility] [address] [place] [address] Matias Mac MD [address] [place] [address] Social History Tobacco Use Types Packs/Day Years [...] Contact Info) Description 09/25/2024 2:00 PM PATIENT SUPPORT ASSOCIATE [facility]ointment [facility] [address] [place] [address] Zayra Powell FNP [address] [place] [address] 10/16/2024 3:30 PM PATIENT SUPPORT ASSOCIATE Office Visit [facility] Gutierrez[address] [place] [address] Brit Gonzáles MD 619 [place] [address] documented as of this encounter Visit Diagnoses Not on filedocumented in this encounter Care Teams Basket Hand Weaver Relationship Specialty Start Date End Date Megan Infante MD [address] [place] [address] PCP - General FAMILY PRACTICE 04/06/16 Piyush Pandey MD [place] Dry Room Operator CARDIOVASCULAR DISEASE 04/06/16 12/28/23 Sharmila Davis, HEAT WELDER PLASTICS, BRAZER FURNACE-C 619 [facility] [address] [place] [address] NURSE PRACTITIONER 01/04/17 04/03/24 Linda Block MD 619 [facility] [address] [place] [address] [place] Dry Room Operator CLINICAL CARDIAC ELECTROPHYSIOLOGY 02/08/17 04/12/23 documented as of this encounter
--- OUTSIDE RECORDS SUMMARY | 2024-09-03 20:48 | XMS_ITS | Encounter Summary ---
Author Organization [facility] Address [address] [place] [address]. [place] [address] [place] [address] Care Team Providers Care Line Crew Supervisor Name Role Phone Piyush Pandey MD Unavailable UnavailMegan Rodriguez MD Primary Care Provider [phone] Sharmila Davis APRN, TRANSCRIPTION-C Unavailable [phone] Linda Block MD Unavailable [phone] Encounter Details Date Type Department Care Team (Late st Contact Info) Description 02/29/[address] [facility] [address] [place] [address] Matias Mac MD [address] [place] [address] Social History Tobacco Use Types Packs/Day Years [...] st Contact Info) Description 09/25/2024 2:00 PM UNDERWRITING SPECIALIST Appointment [facility] [address] [place] [address] Zayra Powell FNP [address] [place] [address] 10/16/2024 3:30 PM UNDERWRITING SPECIALIST Office Visit [facility] Gutierrez[address] [place] [address] Brit Gonzáles MD 619 [place] [address] documented as of this encounter Visit Diagnoses Diagnosis Chest pain Chest pain, unspecified documented in this encounter Care Teams Line Crew Supervisor Relationship Specialty Start Date End Date Megan Infante MD [address] [place] [address] PCP - General FAMILY PRACTICE 04/06/16 Piyush Pandey MD [place] Release Specialist CARDIOVASCULAR DISEASE 04/06/16 12/28/23 Sharmila Davis, DANNY, TRANSCRIPTION-C 619 [facility] [address] [place] [address] NURSE PRACTITIONER 01/04/17 04/03/24 Linda Block MD 619 [facility] [address] [place] [address] [place] Release Specialist CLINICAL CARDIAC ELECTROPHYSIOLOGY 02/08/17 04/12/23 documented as of this encounter
--- OUTSIDE RECORDS SUMMARY | 2024-09-03 20:48 | XMS_ITS | Encounter Summary ---
Author Organization [facility] Address [address] [place] [address]. [place] [address] [place] [address] Care Team Providers Care [place] Gunfire Spotter Name Role Phone Piyush Pandey MD Unavailable UnavailMegan Rodriguez MD Primary Care Provider [phone] Sharmila Davis APRN, AIRCRAFT PILOT-C Unavailable Linda Block MD Unavailable [phone] Encounter Details Date Type Department Care Team (Late st Contact Info) Description 11/21/[address] [facility] [address] [place] [address] Matias Mac MD [address] [place] [address] Social History Tobacco Use Types Packs/Day Years [...] Contact Info) Description 09/25/2024 2:00 PM SPINNER TENDER Appointment [facility] [address] [place] [address] Zayra Powell FNP [address] [place] [address] 10/16/2024 3:30 PM SPINNER TENDER Office Visit [facility] [address] [place] [address] Brit Gonzáles MD 6[address] [place] [address] documented as of this encounter Visit Diagnoses Diagnosis Chest pain Chest pain, unspecified documented in this encounter Care Teams [place] Gunfire Spotter Relationship Specialty Start Date End Date Megan Infante MD [address] [place] [address] PCP - General FAMILY PRACTICE 04/06/16 Piyush Pandey MD [place] Dry Color Mixer CARDIOVASCULAR DISEASE 04/06/16 12/28/23 Sharmila Davis, TOOLING SUPERVISOR, AIRCRAFT PILOT-C 619 [facility] [address] [place] [address] NURSE PRACTITIONER 01/04/17 04/03/24 Linda Block MD 619 [facility] [address] [place] [address] [place] Dry Color Mixer CLINICAL CARDIAC ELECTROPHYSIOLOGY 02/08/17 04/12/23 documented as of this encounter
--- OUTSIDE RECORDS SUMMARY | 2024-09-03 20:48 | XMS_ITS | Encounter Summary ---
Author Organization [facility] Address [address] [place] [address]. [place] [address] [place] [address] Care Team Providers Care Director Of Billing Name Role Phone Piyush Pandey MD Unavailable Unavailabl Megan Leos MD Primary Care Provider [phone] Sharmila Davis APRN SWITCH INSPECTOR-C Unavailable Linda Block MD Unavailable [phone] Encounter Details Date Type Department Care Team (Late st Contact Info) Description 12/16/2000 Abstract [facility] [address] [place] [address] , Generic MD Nikhil Social [...] Contact Info) Description 09/25/2024 2:00 PM MEDICAL EQUIPMENT SALES Appointment [facility] [address] [place] [address] Zayra Powell, ADVANCED MANUFACTURING ASSOCIATE [address] [place] [address] 10/16/2024 3:30 PM MEDICAL EQUIPMENT SALES Office Visit [facility] [address] [place] [address] Brit Gonzáles MD [address] [place] [address] documented as of this encounter Visit Diagnoses Not on filedocumented in this encounter Care Teams Director Of Billing Relationship Specialty Start Date End Date Megan Infante MD [address] [facility] [place] [address] PCP - General FAMILY PRACTICE 04/06/16 Piyush Pandey MD [place] Search Strategist CARDIOVASCULAR DISEASE 04/06/16 12/28/23 Sharmila Davis APRN, SWITCH INSPECTOR-C 619 [facility] [address] [place] [address] NURSE PRACTITIONER 01/04/17 04/03/24 Linda Block MD 619 [facility] [address] [place] [address] [place] Search Strategist CLINICAL CARDIAC ELECTROPHYSIOLOGY 02/08/17 04/12/23 documented as of this encounter
--- OUTSIDE RECORDS SUMMARY | 2024-09-03 20:48 | XMS_ITS | Encounter Summary ---
Author Organization [facility] Address [address] [place] [address]. [place] [address] [place] [address] Care Team Providers Care Cath Lab Tech Name Role Phone Piyush Pandey MD Unavailable UnavailMegan Rodriguez MD Primary Care Provider [phone] Sharmila Davis APRN INTERVENTIONAL SALE CONSULTANT-C Unavailable Linda Block MD Unavailable [phone] Encounter Details Date Type Department Care Team (Late st Contact Info) Description 09/01/2007 Abstract SFL CONVERSION [address] [place] [address] Palomo Ponce MD [facility] [place] [address] Social History Tobacco Use Types [...] st Contact Info) Description 09/25/2024 2:00 PM VACCINE SPECIALIST Appointment [facility] [address] [address] Zayra Powell, BOBBIN PRESSER [address] [place] [address] 10/16/2024 3:30 PM VACCINE SPECIALIST Office Visit [facility] [place] [address] Brit Gonzáles MD 619 [place] [address] documented as of this encounter Visit Diagnoses Not on filedocumented in this encounter Care Teams Cath Lab Tech Relationship Specialty Start Date End Date Megan Infante MD [address] [place] [address] PCP - General FAMILY PRACTICE 04/06/16 Piyush Pandey MD [place] Cell Efficiency Supervisor CARDIOVASCULAR DISEASE 04/06/16 12/28/23 Sharmila Davis, DANNY, INTERVENTIONAL SALE CONSULTANT-C 619 [facility] 4P57 [place] [address] NURSE PRACTITIONER 01/04/17 04/03/24 Linda Block MD 619 [facility] [address] [place] [address] [place] Cell Efficiency Supervisor CLINICAL CARDIAC ELECTROPHYSIOLOGY 02/08/17 04/12/23 documented as of this encounter
--- OUTSIDE RECORDS SUMMARY | 2024-09-03 20:48 | XMS_ITS | Encounter Summary ---
Author Organization [facility] Address [address] [place] [address]. [place] [address] [place] [address] Care Team Providers Care Clinical Research Associate Name Role Phone Piyush Pandey MD Unavailable UnavailMegan Rodriguez MD Primary Care Provider [phone] Sharmila Davis APRN EXHIBITS COORDINATOR-C Unavailable Linda Block MD Unavailable [phone] Encounter Details Date Type Department Care Team (Late st Contact Info) Description 04/14/2007 Abstract [facility] CONVERSION [address] [place] [address] Palomo Ponce MD [facility] [place] [address] Social History Tobacco Use Types [...] st Contact Info) Description 09/25/2024 2:00 PM PSYCH SALES SPECIALIST Appointment [facility] [address] [place] [address] Zayra Powell, GLASS CALIBRATOR [address] [place] [address] 10/16/2024 3:30 PM PSYCH SALES SPECIALIST Office Visit [facility] [place] [address] Brit Gonzáles MD 619 [place] [address] documented as of this encounter Visit Diagnoses Not on filedocumented in this encounter Care Teams Clinical Research Associate Relationship Specialty Start Date End Date Megan Infante MD [address] [place] [address] PCP - General FAMILY PRACTICE 04/06/16 Piyush Pandey MD [place] Slot Machine Department Floorperson CARDIOVASCULAR DISEASE 04/06/16 12/28/23 Sharmila Davis, DANNY, EXHIBITS COORDINATOR-C 619 [facility] [address] [place] [address] NURSE PRACTITIONER 01/04/17 04/03/24 Linda Block MD 619 [facility] [address]P57 [place] [address] [place] Slot Machine Department Floorperson CLINICAL CARDIAC ELECTROPHYSIOLOGY 02/08/17 04/12/23 documented as of this encounter
--- OUTSIDE RECORDS SUMMARY | 2024-09-03 20:48 | XMS_ITS | Encounter Summary ---
Author Organization [facility] Address [address] [place] [address]. [place] [address] [place] [address] Care Team Providers Care Service Assistant Name Role Phone Piyush Pandey MD Unavailable Unavailabl e Megan nIfante MD Primary Care Provider [phone] Sharmila Davis APRN BAND DIRECTOR-C Unavailable Linda Block MD Unavailable [phone] Encounter Details Date Type Department Care Team (Late st Contact Info) Description 08/25/2011 Abstract [facility] CONVERSION [address] [place] [address] Piyush Pandey MD Social History Tobacco Use [...] st Contact Info) Description 09/25/2024 2:00 PM ELECTRONIC ASSEMBLER Appointment [facility] [address] [place] [address] Zayra Powell, IP PARALEGAL [address] [place] [address] 10/16/2024 3:30 PM ELECTRONIC ASSEMBLER Office Visit [facility] [address] [place] [address] Brit Gonzáles MD 619 [place] [address] documented as of this encounter Visit Diagnoses Diagnosis Chest pain Chest pain, unspecified documented in this encounter Care Teams Service Assistant Relationship Specialty Start Date End Date Megan Infante MD [address] [facility] [place] [address] PCP - General FAMILY PRACTICE 04/06/16 Piyush Pandey MD [place] Senior It Architect CARDIOVASCULAR DISEASE 04/06/16 12/28/23 Sharmila Davis, QUALITY CONTROL LAB TECHNICIAN, BAND DIRECTOR-C 619 [facility] [address] [address] NURSE PRACTITIONER 01/04/17 04/03/24 Linda Block MD [address] [place] [address] [address] [place] Senior It Architect CLINICAL CARDIAC ELECTROPHYSIOLOGY 02/08/17 04/12/23 documented as of this encounter
--- OUTSIDE RECORDS SUMMARY | 2024-09-03 20:48 | XMS_ITS | Encounter Summary ---
Author Organization [facility] Address [facility] [place] [address] [place] [address] Care Team Providers Care Pharmacy Technician Trainee Name Role Phone Piyush Pandey MD Unavailable Unavailabl e Megan Infante MD Primary Care Provider [phone] Sharmila Davis APRN, FLOORWALKER-C Unavailable Linda Block MD Unavailable [phone] Encounter Details Date Type Department Care Team (Late st Contact Info) Description 03/23/[address] [facility] [address] [place], [place] [address] Linda Block MD [address] [facility] 4P57 [place] [address] Social History Tobacco Use Types Packs/Day Years [...] Contact Info) Description 09/25/2024 2:00 PM DELIVERY ASSISTANT Appointment [facility] [address] [place] [address] Zayra Powell, MANNEQUIN COLORING ARTIST [address] [place] [address] 10/16/2024 3:30 PM DELIVERY ASSISTANT [facility] [address] [place] [address] Brit Gonzáles MD 619 [place] [address] documented as of this encounter Visit Diagnoses Diagnosis Shortness of breath documented in this encounter Care Teams Pharmacy Technician Trainee Relationship Specialty Start Date End Date Megan Infante MD [address] [place] [address] PCP - General FAMILY PRACTICE 04/06/16 Piyush Pandey MD [place] Story Reader CARDIOVASCULAR DISEASE 04/06/16 12/28/23 Sharmila Davis, BUSINESS STRATEGIST, FLOORWALKER-C 619 [facility] 4P57 [place] [address] NURSE PRACTITIONER 01/04/17 04/03/24 Linda Block MD 619 [facility] 47 [place] [address] [place] Story Reader CLINICAL CARDIAC ELECTROPHYSIOLOGY 02/08/17 04/12/23 documented as of this encounter
--- OUTSIDE RECORDS SUMMARY | 2024-09-03 20:48 | XMS_ITS | Encounter Summary ---
Author Organization [facility] Address [address] [place] [address]. [place] [address] [place] [address] Care Team Providers Care Granite Chip Terrazzo Finisher Name Role Phone Piyush Pandey MD, Amy E MD Primary Care Provider [phone] Encounter Details Date Type Department Care Team (Late st Contact Info) Description 12/29/2010 Abstract [facility] [address] [place] [address] Eun Tovar MD Social History Tobacco [...] st Contact Info) Description 09/25/2024 2:00 PM LABOURERS Appointment [facility] [address] [place] [address] Zayra Powell, SEAMARK ADVANCED OPERATOR MAINTAINER [address] [place] [address] 10/16/2024 3:30 PM LABOURERS Office Visit [facility] [address] [place] [address] Brit Gonzáles MD [address] [place] [phone] documented as of this encounter Visit Diagnoses Not on filedocumented in this encounter Care Teams Granite Chip Terrazzo Finisher Relationship Specialty Start Date End Date Megan Infante MD [address] [place] [address] PCP - General FAMILY PRACTICE 04/06/16 Piyush Pandey MD [place] Chief Customer Officer CARDIOVASCULAR DISEASE 04/06/16 12/28/23 documented as of this encounter
--- OUTSIDE RECORDS SUMMARY | 2024-09-03 20:48 | XMS_ITS | Encounter Summary ---
Author Organization [facility] Address [address] [place] [address]. [place] [address] [place] [address] Care Team Providers Care Certified Marine Mechanic Name Role Phone Piyush Pandey MD Unavailable Unavailabl Megan Leos MD Primary Care Provider [phone] Sharmila Davis APRN FEDERAL DISTRICT LAW CLERK-C Unavailable Linda Block MD Unavailable [phone] Encounter Details Date Type Department Care Team (Late st Contact Info) Description 10/22/2000 Abstract [facility] CONVERSION [address] [place] [address] , Generic MD Nikhil Social [...] st Contact Info) Description 09/25/2024 2:00 PM AIRCRAFT STEEL FABRICATOR Appointment [facility] [address] [place] [address] Zayra Powell, MOTOR HOTEL MANAGER [address] [place] [address] 10/16/2024 3:30 PM AIRCRAFT STEEL FABRICATOR Office Visit [facility] [address] [place] [address] Brit Gonzáles MD [address] [place] [address] documented as of this encounter Visit Diagnoses Not on filedocumented in this encounter Care Teams Certified Marine Mechanic Relationship Specialty Start Date End Date Megan Infante MD [address] [place] [address] PCP - General FAMILY PRACTICE 04/06/16 Piyush Pandey MD [place] Pulpit Operator CARDIOVASCULAR DISEASE 04/06/16 12/28/23 Sharmila Davis APRN, FEDERAL DISTRICT LAW CLERK-C 619 [facility] [address] [place] [address] NURSE PRACTITIONER 01/04/17 04/03/24 Linda Block MD 619 [facility] [address] [place] [address] [place] Pulpit Operator CLINICAL CARDIAC ELECTROPHYSIOLOGY 02/08/17 04/12/23 documented as of this encounter
--- OUTSIDE RECORDS SUMMARY | 2024-09-03 20:48 | XMS_ITS | Encounter Summary ---
Author Organization [facility] Address [address] [place] [address]. [place] [address] [place] [address] Care Team Providers Care Pulmonary Nurse Practitioner Name Role Phone Piyush Pandey MD Unavailable Unavailabl Megan Leos MD Primary Care Provider [phone] Sharmila Davis APRN COMMUNITY ADVOCATE-C Unavailable Linda Block MD Unavailable [phone] Encounter Details Date Type Department Care Team (Late st Contact Info) Description 06/07/2003 Abstract [facility] CONVERSION [address] [place] [address] , Generic MD Nikhil Social [...] st Contact Info) Description 09/25/2024 2:00 PM DOPE EDGER Appointment [facility] [address] [place] [address] Zayra Powell, SENIOR CLIMATE ADVISOR [address] [place] [address] 10/16/2024 3:30 PM DOPE EDGER Office Visit [facility] [address] [place] [address] Brit Gonzáles MD [address] [place] [address] documented as of this encounter Visit Diagnoses Not on filedocumented in this encounter Care Teams Pulmonary Nurse Practitioner Relationship Specialty Start Date End Date Megan Infante MD [address] [facility] [place] [address] PCP - General FAMILY PRACTICE 04/06/16 Piyush Pandey MD [place] Machine Cage Maker CARDIOVASCULAR DISEASE 04/06/16 12/28/23 Sharmila Davis APRN, COMMUNITY ADVOCATE-C 619 [facility] [address] [place] [address] NURSE PRACTITIONER 01/04/17 04/03/24 Linda Block MD 619 [facility] [address] [place] [address] [place] Machine Cage Maker CLINICAL CARDIAC ELECTROPHYSIOLOGY 02/08/17 04/12/23 documented as of this encounter
--- OUTSIDE RECORDS SUMMARY | 2024-09-03 20:48 | XMS_ITS | Encounter Summary ---
Author Organization [facility] Address [address] [place] [address]. [place] [address] [place] [address] Care Team Providers Care Rod Buster Helper Name Role Phone Piyush Pandey MD Unavailable UnavailMegan Rodriguez MD Primary Care Provider [phone] Sharmila Davis APRN SCRAP SAWYER-C Unavailable [phone] Linda Block MD Unavailable [phone] Encounter Details Date Type Department Care Team (Late st Contact Info) Description 06/18/2011 Abstract [facility] [address] [place] [address] Palomo Ponce MD [address] [place] [phone] Social History Tobacco Use Types Packs/Day Years [...] (Late Contact Info) Description 09/25/2024 2:00 PM EXCEL EXPERT Appointment [facility] [address] [place] [address] Zayra Powell, TONE REGULATOR [address] [place] [address] 10/16/2024 3:30 PM EXCEL EXPERT Office Visit [facility] [address] [place] [address] Brit Gonzáles MD 619 [place] [address] documented as of this encounter Visit Diagnoses Diagnosis Pain in joint, pelvic region and thigh documented in this encounter Care Teams Rod Buster Helper Relationship Specialty Start Date End Date Megan Infante MD [address] [place] [address] PCP - General FAMILY PRACTICE 04/06/16 Piyush Pandey MD [place] Mechanic Assistant CARDIOVASCULAR DISEASE 04/06/16 12/28/23 Sharmila Davis, GAS MAIN FITTER HELPER, SCRAP SAWYER-C 619 [facility] [address] [place] [address] NURSE PRACTITIONER 01/04/17 04/03/24 Linda Block MD 619 [facility] [address] [place] [address] [place] Mechanic Assistant CLINICAL CARDIAC ELECTROPHYSIOLOGY 02/08/17 04/12/23 documented as of this encounter
--- OUTSIDE RECORDS SUMMARY | 2024-09-03 20:48 | XMS_ITS | Encounter Summary ---
Author Organization [facility] Address [address] [place] [address]. [place] [address] [place] [address] Care Team Providers Care Sales Rep Name Role Phone Piyush Pandey MD Unavailable UnavailMegan Rodriguez MD Primary Care Provider [phone] Sharmila Davis APRN, DISPATCHER AUTOMOBILE RENTAL-C Unavailable Linda Block MD Unavailable [phone] Encounter Details Date Type Department Care Team (Late st Contact Info) Description 07/13/[address] [place] [address] [place] [address] Matias Mac MD [address] [place] [address] Social History Tobacco Use Types Packs/Day Years [...] st Contact Info) Description 09/25/2024 2:00 PM [address] TA[address]ER [address]oint[address] [facility] [address] [place] [address] Zayra Powell, BREAKFAST BAR ATTENDANT [address] [place] [address] 10/16/2024 3:30 PM RIP TAILER Office Visit [facility] Gutierrez[address] [place] [address] Brit Gonzáles MD 619 [place] [address] documented as of this encounter Visit Diagnoses Not on filedocumented in this encounter Care Teams Sales Rep Relationship Specialty Start Date End Date Megan Infante MD [address] [place] [address] PCP - General FAMILY PRACTICE 04/06/16 Piyush Pandey MD [place] Golf Ball Winder CARDIOVASCULAR DISEASE 04/06/16 12/28/23 Sharmila Davis, MASTER PILOT, DISPATCHER AUTOMOBILE RENTAL-C 619 [facility] [address]P57 [place] [address] NURSE PRACTITIONER 01/04/17 04/03/24 Linda Block MD 619 [facility] [address] [place] [address] [place] Golf Ball Winder CLINICAL CARDIAC ELECTROPHYSIOLOGY 02/08/17 04/12/23 documented as of this encounter
--- OUTSIDE RECORDS SUMMARY | 2024-09-03 20:48 | XMS_ITS | Encounter Summary ---
Author Organization [facility] Address [address] [place] [address]. [place] [address] [place] [address] Care Team Providers Care Legal Service Specialist Name Role Phone Piyush Pandey MD Unavailable UnavailMegan Rodriguez MD Primary Care Provider [phone] Sharmila Davis APRN FIRE EQUIPMENT INSPECTOR-C Unavailable [phone] Linda Block MD Unavailable [phone] Encounter Details Date Type Department Care Team (Late st Contact Info) Description 11/05/[address] [address] [place] [address] Palomo Ponce MD [address] [place] [phone] Social History Tobacco Use Types Packs/Day Years [...] st Contact Info) Description 09/25/2024 2:00 PM STRAIGHT LINE EDGER Appointment [facility] [address] [place] [address] Zayra Powell FNP [address] [place] [address] 10/16/2024 3:30 PM STRAIGHT LINE EDGER Office Visit [facility] [address] [place] [address] Brit Gonzáles MD 619 [place] [address] documented as of this encounter Visit Diagnoses Not on filedocumented in this encounter Care Teams Legal Service Specialist Relationship Specialty Start Date End Date Megan Infante MD [address] [place] [address] PCP - General FAMILY PRACTICE 04/06/16 Piyush Pandey MD [place] Head Esthetician CARDIOVASCULAR DISEASE 04/06/16 12/28/23 Sharmila Davis APRN, FIRE EQUIPMENT INSPECTOR-C 619 [facility] [address] [place] [address] NURSE PRACTITIONER 01/04/17 04/03/24 Linda Block MD 619 [facility] 47 [place] [address] [place] Esthetician CLINICAL CARDIAC ELECTROPHYSIOLOGY 02/08/17 04/12/23 documented as of this encounter
--- OUTSIDE RECORDS SUMMARY | 2024-09-03 20:48 | XMS_ITS | Encounter Summary ---
Author Organization [facility] Address [address] [place] [address]. [place] [address] [place] [address] Care Team Providers Care Hand Iii Cutter Name Role Phone Piyush Pandey MD Unavailable UnavailMegan Rodriguez MD Primary Care Provider [phone] Sharmila Davis APRN ENGINE ASSEMBLY SUPERVISOR-C Unavailable Linda Block MD Unavailable [phone] Encounter Details Date Type Department Care Team (Late st Contact Info) Description 06/23/2007 Abstract [facility] CONVERSION [address] [place], [place] [address] Palomo Ponce MD [facility] [place] [address] Social History Tobacco Use Types [...] st Contact Info) Description 09/25/2024 2:00 PM EXTRUSION OPERATOR Appointment [facility] [address] [address] Zayra Powell, TURBINE MEASUREMENTS ENGINEER [address] [place] [address] 10/16/2024 3:30 PM EXTRUSION OPERATOR Office Visit [facility] [place] [address] Brit Gonzáles MD [address] [place] [address] documented as of this encounter Visit Diagnoses Not on filedocumented in this encounter Care Teams Hand Iii Cutter Relationship Specialty Start Date End Date Megan Infante MD [address] [place] [address] PCP - General FAMILY PRACTICE 04/06/16 Piyush Pandey MD [place] Finish Painter CARDIOVASCULAR DISEASE 04/06/16 12/28/23 Sharmila Davis, DANNY, ENGINE ASSEMBLY SUPERVISOR-C 619 [facility] [address] [place] [address] NURSE PRACTITIONER 01/04/17 04/03/24 Linda Block MD 619 [facility] [address] [place] [address] [place] Finish Painter CLINICAL CARDIAC ELECTROPHYSIOLOGY 02/08/17 04/12/23 documented as of this encounter
--- OUTSIDE RECORDS SUMMARY | 2024-09-03 20:48 | XMS_ITS | Encounter Summary ---
Author Organization [facility] Address [address] [place] [address]. [place] [address] [place] [address] Care Team Providers Care Medical Imaging Tech Name Role Phone Piyush Pandey MD, Amy E MD Primary Care Provider [phone] Encounter Details Date Type Department Care Team (Late st Contact Info) Description 11/13/2011 Abstract [facility] [address] [place] [address] Eun Tovar MD Social History Tobacco [...] st Contact Info) Description 09/25/2024 2:00 PM WAX PATTERN REPAIRER Appointment [facility] [address] [place] [address] Zayra Powell, HIGH SCHOOL FRENCH TEACHER [address] [place] [address] 10/16/2024 3:30 PM WAX PATTERN REPAIRER Office Visit [facility] [address] [place] [phone] Brit Gonzáles MD [address] [place] [phone] documented as of this encounter Visit Diagnoses Not on filedocumented in this encounter Care Teams Medical Imaging Tech Relationship Specialty Start Date End Date Megan Infante MD [address] [facility] [place] [address] PCP - General FAMILY PRACTICE 04/06/16 Piyush Pandey MD [place] At Risk Paraprofessional CARDIOVASCULAR DISEASE 04/06/16 12/28/23 documented as of this encounter
--- OUTSIDE RECORDS SUMMARY | 2024-09-03 20:48 | XMS_ITS | Encounter Summary ---
Author Organization [facility] Address [address] [place] [address]. [place] [address] [place] [address] Care Team Providers Care Jigger Machine Operator Name Role Phone Piyush Pandey MD Unavailable UnavailMegan Rodriguez MD Primary Care Provider [phone] Sharmila Davis APRN DENTAL ASSISTANT MEDICAL ASSISTANT-C Unavailable Linda Block MD Unavailable [phone] Encounter Details Date Type Department Care Team (Late st Contact Info) Description 10/29/2005 Abstract [facility] CONVERSION [address] [place], [place] [address] Palomo Ponce MD [facility] [place] [address] Social History Tobacco Use Types [...] st Contact Info) Description 09/25/2024 2:00 PM AUTOMOTIVE ELECTRICAL FITTER Appointment [facility] [address] [address] Zayra Powell, STUNT DOUBLE [address] [place] [address] 10/16/2024 3:30 PM AUTOMOTIVE ELECTRICAL FITTER Office Visit [facility] [place] [address] Brit Gonzáles MD 619 [place] [address] documented as of this encounter Visit Diagnoses Not on filedocumented in this encounter Care Teams Jigger Machine Operator Relationship Specialty Start Date End Date Megan Infante MD [address] [place] [address] PCP - General FAMILY PRACTICE 04/06/16 Piyush Pandey MD [place] Seamer Operator CARDIOVASCULAR DISEASE 04/06/16 12/28/23 Sharmila Davis, DANNY, DENTAL ASSISTANT MEDICAL ASSISTANT-C [address] [facility] [address] [place] [address] NURSE PRACTITIONER 01/04/17 04/03/24 Linda Block MD 619 [facility] [address] [place] [address] [place] Seamer Operator CLINICAL CARDIAC ELECTROPHYSIOLOGY 02/08/17 04/12/23 documented as of this encounter
--- OUTSIDE RECORDS SUMMARY | 2024-09-03 20:48 | XMS_ITS | Encounter Summary ---
Author Organization [facility] Address [address] [place] [address]. [place] [address] [place] [address] Care Team Providers Care Enrollment Consultant Name Role Phone Piyush Pandey MD Unavailable Unavailabl Megan Leos MD Primary Care Provider [phone] Sharmila Davis APRN, RESTAURANT ATTENDANT-C Unavailable Linda Block MD Unavailable [phone] Encounter Details Date Type Department Care Team (Late st Contact Info) Description 09/21/2002 Abstract [facility] [address] [place] [address] , Generic MD Nikhil Social [...] st Contact Info) Description 09/25/2024 2:00 PM MIRROR INSPECTOR Appointment [facility] [address] [place] [address] Zayra Powell, WAREHOUSE EXAMINER [address] [place] [address] 10/16/2024 3:30 PM MIRROR INSPECTOR Office Visit [facility] [address] [place] [address] Brit Gonzáles MD [address] [place] [address] documented as of this encounter Visit Diagnoses Not on filedocumented in this encounter Care Teams Enrollment Consultant Relationship Specialty Start Date End Date Megan Infante MD [address] [facility] [place] [address] PCP - General FAMILY PRACTICE 04/06/16 Piyush Pandey MD [place] Bookmaker Map CARDIOVASCULAR DISEASE 04/06/16 12/28/23 Sharmila Davis APRN, RESTAURANT ATTENDANT-C 619 [facility] [address]57 [place] [address] NURSE PRACTITIONER 01/04/17 04/03/24 Linda Block MD 619 [facility] [address] [place] [address] [place] Bookmaker Map CLINICAL CARDIAC ELECTROPHYSIOLOGY 02/08/17 04/12/23 documented as of this encounter
--- OUTSIDE RECORDS SUMMARY | 2024-09-03 20:48 | XMS_ITS | Encounter Summary ---
Author Organization [facility] Address [address] [place] [address]. [place] [address] [place] [address] Care Team Providers Care Mortgage Coordinator Name Role Phone Piyush Pandey MD Unavailable Unavailabl Megan Leos MD Primary Care Provider [phone] Sharmila Davis APRN FOREST FIREFIGHTER-C Unavailable Linda Block MD Unavailable [phone] Encounter Details Date Type Department Care Team (Late st Contact Info) Description 06/08/2003 Abstract [facility] [address] [place] [address] , Generic MD Nikhil Social [...] Info) Description 09/25/2024 2:00 PM PRINTING TABLE HAND Appointment [facility] [address] [place] [address] Zayra Powell, IMAGERY ANALYST [address] [place] [address] 10/16/2024 3:30 PM PRINTING TABLE HAND Office Visit [facility] [address] [place] [address] Brit Gonzáles MD [address] [place] [address] documented as of this encounter Visit Diagnoses Not on filedocumented in this encounter Care Teams Mortgage Coordinator Relationship Specialty Start Date End Date Megan Infante MD [address] [facility] [place] [address] PCP - General FAMILY PRACTICE 04/06/16 Piyush Pandey MD [place] [employer] Lead CARDIOVASCULAR DISEASE 04/06/16 12/28/23 Sharmila Davis APRN, FOREST FIREFIGHTER-C 619 [facility] [address] [place] [address] NURSE PRACTITIONER 01/04/17 04/03/24 Linda Block MD 619 [facility] [address] [place] [address] [employer] Lead CLINICAL CARDIAC ELECTROPHYSIOLOGY 02/08/17 04/12/23 documented as of this encounter
--- OUTSIDE RECORDS SUMMARY | 2024-09-03 20:48 | XMS_ITS | Encounter Summary ---
Author Organization [facility] Address [facility] [place] [address] [place] [address] Care Team Providers Care Splitter Machine Name Role Phone Piyush Pandey MD Unavailable UnavailMegan Rodriguez MD Primary Care Provider [phone] Sharmila Davis APRN, CAPACITOR REPAIRER-C Unavailable Marlee Vega MD Unavailable [phone] Encounter Details Date Type Department Care Team (Latest Contact Info) Description 04/11/2012 Abstract [facility] Shubham Callahan MD [address] [place] [address] Social History Tobacco Use Types Packs/Day Years [...] st Contact Info) Description 09/25/2024 2:00 PM SALESPERSON FURNITURE Appointment [facility] [address] [place] [address] Zayra Powell FNP [address] [place] [address] 10/16/2024 3:30 PM SALESPERSON FURNITURE Office Visit [facility] [address] [place] [address] Brit Gonzáles MD 619 [place] [address] documented as of this encounter Procedures Procedure Name Priority Date/Time Associated Diagnosis Comments ECG 12-LEAD Routine 04/11/2012 11:44 PM CDT ECG 12-LEAD Routine 04/11/2012 12:33 PM CDT documented in this encounter Results * ECG 12 lead (04/11/2012 11:44 PM CDT) 04/11/2012 11:4 4 PM CDT Narrative [facility] - 04/12/2012 7:04 PM CDT ? [facility] ? Test Date: ?2012-04-11 Pat Name: ? OBIE SIMS ?Department: ?? -1 ? Room: ? 0404AA Gender: ? M ?Tube Bending Machine Operator: ?? EAR : ?1955 ? Requested By: MARLEE VEGA Order Number: [id number] ?Sage LANDRY: ?? Armand Lentz ? Measurements Intervals ?[place] ? Rate: ? 74 ? P: ? IA: ?QRS: ?-6 QRSD: ? 108 ?T: ?144 QT: ? 450 ? QTc: ?499 ? Interpretive Statements Atrial fibrillation Incomplete left bundle branch block Minimal voltage criteria for LVH, may be normal variant ST & T wave abnormality, consider lateral ischemia or digitalis effect Prolonged QT Abnormal ECG Procedure Note Eun Landry, - 04/19/2019 [facility] Test Date: 2012-04-11 Pat Name: OBIE SIMS Department: -1 Room: [facility] Gender: M Tube Bending Machine Operator: EAR : 1955 Requested By: MARLEE VEGA Order Number: [id number] Reading MD: Armand Lentz Measurements Intervals [place] Rate: 74 P: IA: QRS: -6 QRSD: 108 T: 144 QT: 450 QTc: 499 Interpretive Statements Atrial fibrillation Incomplete left bundle branch block Minimal voltage criteria for LVH, may be normal variant ST & T wave abnormality, consider lateral ischemia or digitalis effect Prolonged QT Abnormal ECG us Generic Conversion Md LANDRY ECG ORDERABLES Final R esult [facility] * ECG 12 lead (04/11/2012 12:33 PM CDT) 04/11/2012 12:3 3 PM CDT Narrative [facility] - 04/12/2012 7:07 PM CDT ? [facility] ? Test Date: ?2012-04-11 Pat Name: ? OBIE SIMS ?Department: ?? -1 ? Room: ? 0404AA Gender: ? M ?Tube Bending Machine Operator: ?? JM : ?1955 ? Requested By: MARLEE VEGA Order Number: [id number] ?Reading : ?? Armand Lentz ? Measurements Intervals ?[place] ? Rate: ? 89 ? P: ? IA: ?QRS: ?-10 QRSD: ? 108 ?T: ?153 QT: ? 368 ? QTc: ?447 ? Interpretive Statements Atrial fibrillation Minimal voltage criteria for LVH, may be normal variant ST & T wave abnormality, consider lateral ischemia or digitalis effect Abnormal ECG Procedure Note Eun Landry, - 04/19/2019 [facility] Test Date: 2012-04-11 Pat Name: OBIE SIMS Department: -1 Room: [facility] Gender: M Tube Bending Machine Operator: : 1955 Requested By: MARLEE VEGA Order Number: [id number] Reading MD: Armand Lentz Measurements Intervals [place] Rate: 89 P: IA: QRS: -10 QRSD: 108 T: 153 QT: 368 QTc: 447 Interpretive Statements Atrial fibrillation Minimal voltage criteria for LVH, may be normal variant ST & T wave abnormality, consider lateral ischemia or digitalis effect Abnormal ECG us Generic Conversion Md LANDRY ECG ORDERABLES Final R esult [facility] documented in this encounter Visit Diagnoses Not on filedocumented in this encounter Care Teams Splitter Machine Relationship Specialty Start Date End Date Megan Infante MD [address] [facility] [place] [address] PCP - General FAMILY PRACTICE 04/06/16 Piyush Pandey MD [place] Nutrition Associate CARDIOVASCULAR DISEASE 04/06/16 12/28/23 Sharmila Davis, LUMBER DRIVER, CAPACITOR REPAIRER-C [address] [facility] [address] [place] [address] NURSE PRACTITIONER 01/04/17 04/03/24 Marlee Vega MD 619 [facility] [address] [phone] [place] Nutrition Associate CLINICAL CARDIAC ELECTROPHYSIOLOGY 02/08/17 04/12/23 documented as of this encounter
--- OUTSIDE RECORDS SUMMARY | 2024-09-03 20:48 | XMS_ITS | Encounter Summary ---
Author Organization [facility] Address [address] [place] [address]. [place] [address] [place] [address] Care Team Providers Care Ginning Operator Name Role Phone Piyush Pandey MD Unavailable UnavailMegan Rodriguez MD Primary Care Provider [phone] Sharmila Davis APRN, PUBLIC RELATIONS REPRESENTATIVE-C Unavailable Linda Block MD Unavailable [phone] Encounter Details Date Type Department Care Team (Late st Contact Info) Description 12/09/[address] [facility] [address] [place] [address] Matias Mac MD [address] [place] [address] Social History Tobacco Use Types Packs/Day Years [...] st Contact Info) Description 09/25/2024 2:00 [address] [facility] [address] [place] [address] Zayra Powell FNP [address] [place] [address] 10/16/2024 3:30 PM TROUBLE OPERATOR Office Visit [facility] [place] [address] Brit Gonzáles MD 619 [place] [address] documented as of this encounter Visit Diagnoses Not on filedocumented in this encounter Care Teams Ginning Operator Relationship Specialty Start Date End Date Megan Infante MD [address] [place] [address] PCP - General FAMILY PRACTICE 04/06/16 Piyush Padney MD [place] Sustainability Coach CARDIOVASCULAR DISEASE 04/06/16 12/28/23 Sharmila Davis, ROLLER PRINTER, PUBLIC RELATIONS REPRESENTATIVE-C 619 [facility] [address] [place] [address] NURSE PRACTITIONER 01/04/17 04/03/24 Linda Block MD 619 [facility] [address] [place] [address] [place] Sustainability Coach CLINICAL CARDIAC ELECTROPHYSIOLOGY 02/08/17 04/12/23 documented as of this encounter
--- OUTSIDE RECORDS SUMMARY | 2024-09-03 20:48 | XMS_ITS | Encounter Summary ---
Author Organization [facility] Address [address] [place] [address]. [place] [address] [place] [address] Care Team Providers Care Car Dumper Operator Name Role Phone Piyush Pandey MD Unavailable UnavailMegan Rodriguez MD Primary Care Provider [phone] Sharmila Davis APRN, CHIEF SALES OFFICER-C Unavailable Linda Block MD Unavailable [phone] Encounter Details Date Type Department Care Team (Late st Contact Info) Description 12/29/[address] [facility] [address] [place] [address] Matias Mac MD [address] [place] [address] Social History Tobacco Use Types Packs/Day Years [...] st Contact Info) Description 09/25/2024 2:00 PM MINE DEVELOPMENT ENGINEER Appointment [facility] [address] [place] [address] Zayra Powell FNP [address] [place] [address] 10/16/2024 3:30 PM MINE DEVELOPMENT ENGINEER Office Visit [facility] Gut[facility]rez[address] [place] [address] Brit Gonzáles MD 619 [place] [address] documented as of this encounter Visit Diagnoses Diagnosis Other and unspecified angina pectoris (CMS/HCC) Other and unspecified angina pectoris documented in this encounter Care Teams Car Dumper Operator Relationship Specialty Start Date End Date Megan Infante MD [address] [place] [address] PCP - General FAMILY PRACTICE 04/06/16 Piyush Pandey MD [place] Knot Tying Operator CARDIOVASCULAR DISEASE 04/06/16 12/28/23 Sharmila Davis, POWER GENERATION TECHNICIAN, CHIEF SALES OFFICER-C 619 [facility] 47 [place] [phone] NURSE PRACTITIONER 01/04/17 04/03/24 Linda Block MD 619 [facility] 47 [place] [address] [place] Knot Tying Operator CLINICAL CARDIAC ELECTROPHYSIOLOGY 02/08/17 04/12/23 documented as of this encounter
--- OUTSIDE RECORDS SUMMARY | 2024-09-03 20:48 | XMS_ITS | Encounter Summary ---
Author Organization [facility] Address [address] [place] [address]. [place] [address] [place] [address] Care Team Providers Care Solar Photovoltaic Installer Name Role Phone Piyush Pandey MD Unavailable Unavailabl Megan Leos MD Primary Care Provider [phone] Sharmila Davis APRN, CLEAT FEEDER-C Unavailable Linda Block MD Unavailable [phone] Encounter Details Date Type Department Care Team (Late st Contact Info) Description 10/15/2003 Abstract [facility] CON[facility] [address] [place] [address] , Generic MD Nikhil Social [...] st Contact Info) Description 09/25/2024 2:00 PM TRIM MASTER OPERATOR Appointment [facility] [address] [place] [address] Zayra Powell, ORCHARD MANAGER [address] [place] [address] 10/16/2024 3:30 PM TRIM MASTER OPERATOR Office Visit [facility] [address] [place] [address] Brit Gonzáles MD [address] [place] [address] documented as of this encounter Visit Diagnoses Not on filedocumented in this encounter Care Teams Solar Photovoltaic Installer Relationship Specialty Start Date End Date Megan Infante MD [address] [facility] [place] [address] PCP - General FAMILY PRACTICE 04/06/16 Piyush Pandey MD [place] Nursing Specialist CARDIOVASCULAR DISEASE 04/06/16 12/28/23 Sharmila Davis APRN, CLEAT FEEDER-C 619 [facility] [address] [place] [address] NURSE PRACTITIONER 01/04/17 04/03/24 Linda Block MD 619 [facility] [address] [place] [address] [place] Nursing Specialist CLINICAL CARDIAC ELECTROPHYSIOLOGY 02/08/17 04/12/23 documented as of this encounter
--- OUTSIDE RECORDS SUMMARY | 2024-09-03 20:48 | XMS_ITS | Encounter Summary ---
Author Organization [facility] Address [address] [place] [address]. [place] [address] [place] [address] Care Team Providers Care Elevator Erector Helper Name Role Phone Piyush Pandey MD, Amy E MD Primary Care Provider [phone] Encounter Details Date Type Department Care Team (Late st Contact Info) Description 11/13/2011 [facility] AT [address] [address] Eun Tovar MD Social History [...] Contact Info) Description 09/25/2024 2:00 PM SORTER UPHOLSTERY PARTS Appointment [facility] [address] [place] [address] Zayra Powell, FURNITURE MOVER [address] [place] [address] 10/16/2024 3:30 PM SORTER UPHOLSTERY PARTS Office Visit [facility] [address] [place] [phone] Brit Gonzáles MD [address] [place] [address] documented as of this encounter Visit Diagnoses Not on filedocumented in this encounter Care Teams Elevator Erector Helper Relationship Specialty Start Date End Date Megan Infante MD [address] [place] [address] PCP - General FAMILY PRACTICE 04/06/16 Piyush Pandey MD [place] Panelboard Operator CARDIOVASCULAR DISEASE 04/06/16 12/28/23 documented as of this encounter
--- OUTSIDE RECORDS SUMMARY | 2024-09-03 20:48 | XMS_ITS | Encounter Summary ---
Author Organization [facility] Address [address] [place] [address]. [place] [address] [place] [address] Care Team Providers Care Used Car Lot Porter Name Role Phone Unavailable Primary Care Provider Unavailabl e Encounter Details Date Type Department Care Team (Late st Contact Info) Description 03/17/2012 Abstract [facility] 6[address] [place] [address] Eun Landry MD Social History [...] Contact Info) Description 09/25/2024 2:00 PM RETAIL VISUAL MERCHANDISER Appointment [facility] [address] [place] [address] Zayra Powell, NETWORK SPECIALIST [address] [place] [address] 10/16/2024 3:30 PM RETAIL VISUAL MERCHANDISER Office Visit [facility] [address] [phone] Brit Gonzáles MD 619 [place] [address] documented as of this encounter Procedures Procedure [...] AM CDT ECHO WITH CARDIAC DOPPLER COMP, ??Piyuhs Pandey MD ([facility]) us Generic Conversion Md LANDRY OTHER Final R esult documented in this encounter Visit Diagnoses Not on filedocumented in this encounter
--- OUTSIDE RECORDS SUMMARY | 2024-09-03 20:48 | XMS_ITS | Encounter Summary ---
Author Organization [facility] Address [address] [place] [address]. [place] [address] [place] [address] Care Team Providers Care Visiting Professor Name Role Phone Piyush Pandey MD Unavailable UnavailMegan Rodriguez MD Primary Care Provider [phone] Sharmila Davis APRN, ROUTE SALES DELIVERY DRIVER-C Unavailable [phone] Linda Block MD Unavailable [phone] Encounter Details Date Type Department Care Team (Late st Contact Info) Description 10/20/[address] [facility] [address] [place] [address] Matias Mac MD [address] [place] [address] Social History Tobacco Use Types Packs/Day Years [...] st Contact Info) Description 09/25/2024 2:00 PM CAPACITY PLANNING ANALYST Appointment [facility] [address] [place] [address] Zayra Powell FNP [address] [place] [address] 10/16/2024 3:30 PM CAPACITY PLANNING ANALYST Office Visit [facility] [place] [address] Brit Gonzáles MD 619 [place] [address] documented as of this encounter Visit Diagnoses Not on filedocumented in this encounter Care Teams Visiting Professor Relationship Specialty Start Date End Date Megan Infante MD [address] [place] [address] PCP - General FAMILY PRACTICE 04/06/16 Piyush Pandey MD [place] Elevator Supervisor CARDIOVASCULAR DISEASE 04/06/16 12/28/23 Sharmila Davis, PRODUCTION BROACHER, ROUTE SALES DELIVERY DRIVER-C 619 [facility] [address] [place] [phone] NURSE PRACTITIONER 01/04/17 04/03/24 Linda Block MD 619 [facility] [address] [place] [address] [place] Elevator Supervisor CLINICAL CARDIAC ELECTROPHYSIOLOGY 02/08/17 04/12/23 documented as of this encounter
--- OUTSIDE RECORDS SUMMARY | 2024-09-03 20:48 | XMS_ITS | Encounter Summary ---
Author Organization [facility] Address [address] [place] [address]. [place] [address] [place] [address] Care Team Providers Care Champion Of Sustainable Design Name Role Phone Piyush Pandey MD Unavailable UnavailMegan Rodriguez MD Primary Care Provider [phone] Sharmila Davis APRN, AUTO CLEANER-C Unavailable Linda Block MD Unavailable [phone] Encounter Details Date Type Department Care Team (Late st Contact Info) Description 12/26/2003 Abstract [facility] [address] [place] [address] Matias Mac MD [address] [place] [address] Social History Tobacco Use Types Packs/Day Years [...] st Contact Info) Description 09/25/2024 2:00 PM WHITE LEAD FILTERER Appointment [facility] [address] [place] [address] Zayra Powell, ENGINEERING MATHEMATICIAN [address] [place] [address] 10/16/2024 3:30 PM WHITE LEAD FILTERER Office Visit [facility] [address]rez[address] [place] [phone] Brit Gonzáles MD 619 [place] [address] documented as of this encounter Visit Diagnoses Not on filedocumented in this encounter Care Teams Champion Of Sustainable Design Relationship Specialty Start Date End Date Megan Infante MD [address] [place] [phone] PCP - General FAMILY PRACTICE 04/06/16 Piyush Pandey MD [place] Miter Grinder Operator CARDIOVASCULAR DISEASE 04/06/16 12/28/23 Sharmila Davis, CHEMICAL PRODUCTION ENGINEER, AUTO CLEANER-C 619 [facility] [address] [place] [phone] NURSE PRACTITIONER 01/04/17 04/03/24 Linda Block MD 619 [facility] 47 [place] [address] [place] Miter Grinder Operator CLINICAL CARDIAC ELECTROPHYSIOLOGY 02/08/17 04/12/23 documented as of this encounter
--- OUTSIDE RECORDS SUMMARY | 2024-09-03 20:48 | XMS_ITS | Encounter Summary ---
Author Organization [facility] Address [address] [place] [address]. [place] [address] [place] [address] Care Team Providers Care Athletic Events Scorer Name Role Phone Piyush Pandey MD Unavailable Unavailabl Megan Leos MD Primary Care Provider [phone] Sharmila Davis APRN, ROUGH PLANER TENDER-C Unavailable Linda Block MD Unavailable [phone] Encounter Details Date Type Department Care Team (Late st Contact Info) Description 02/21/2003 Abstract [facility] [address] [place] [address] , Generic MD Nikhil [...] Contact Info) Description 09/25/2024 2:00 PM SPA SUPERVISOR Appointment [facility] [address] [place] [address] Zayra Powell, TIMBER SELECTOR [address] [place] [address] 10/16/2024 3:30 PM SPA SUPERVISOR Office Visit [facility] [address] [place] [phone] Brit Gonzáles MD [address] [place] [address] documented as of this encounter Visit Diagnoses Not on filedocumented in this encounter Care Teams Athletic Events Scorer Relationship Specialty Start Date End Date Megan Infante MD [address] [facility] [place] [address] PCP - General FAMILY PRACTICE 04/06/16 Piyush Pandey MD [place] Relocation Services Specialist CARDIOVASCULAR DISEASE 04/06/16 12/28/23 Sharmila Davis APRN, ROUGH PLANER TENDER-C 619 [facility] [address] [place] [address] NURSE PRACTITIONER 01/04/17 04/03/24 iLnda Block MD 619 [facility] [address] [place] [address] [place] Relocation Services Specialist CLINICAL CARDIAC ELECTROPHYSIOLOGY 02/08/17 04/12/23 documented as of this encounter
--- OUTSIDE RECORDS SUMMARY | 2024-09-03 20:48 | XMS_ITS | Encounter Summary ---
Author Organization [facility] Address [address] [place] [address]. [place] [address] [place] [address] Care Team Providers Care Tar Heater Operator Name Role Phone Piyush Pandey MD Unavailable Unavailabl Megan Leos MD Primary Care Provider [phone] Sharmila Davis APRN, RETAIL PHARMACY TECHNICIAN-C Unavailable Linda Block MD Unavailable [phone] Encounter Details Date Type Department Care Team (Late st Contact Info) Description 09/15/2002 Abstract [facility] [address] [place] [address] , Generic MD Nikhil Social [...] st Contact Info) Description 09/25/2024 2:00 PM MUFFLE OPERATOR Appointment [facility] [address] [place] [address] Zayra Powell, SUPERVISING LIBRARIAN [address] [place] [address] 10/16/2024 3:30 PM MUFFLE OPERATOR Office Visit [facility] [address] [place] [phone] Brit Gonzáles MD [address] [place] [address] documented as of this encounter Visit Diagnoses Not on filedocumented in this encounter Care Teams Tar Heater Operator Relationship Specialty Start Date End Date Megan Infante MD [address] [place] [address] PCP - General FAMILY PRACTICE 04/06/16 Piyush Pandey MD [place] Photograph Printer CARDIOVASCULAR DISEASE 04/06/16 12/28/23 Sharmila Davis APRN, RETAIL PHARMACY TECHNICIAN-C 619 [facility] [address] [place] [address] NURSE PRACTITIONER 01/04/17 04/03/24 Linda Block MD [address] [facility] [address] [place] [address] [place] Photograph Printer CLINICAL CARDIAC ELECTROPHYSIOLOGY 02/08/17 04/12/23 documented as of this encounter
--- OUTSIDE RECORDS SUMMARY | 2024-09-03 20:48 | XMS_ITS | Encounter Summary ---
Author Organization [facility] Address [address] [place] [address]. [place] [address] [place] [address] Care Team Providers Care Wood Tank Erector Name Role Phone Piyush Pandey MD Unavailable UnavailMegan Rodriguez MD Primary Care Provider [phone] Sharmila Davis APRN, DEMONSTRATOR SEWING TECHNIQUES-C Unavailable Linda Block MD Unavailable [phone] Encounter Details Date Type Department Care Team (Late st Contact Info) Description 10/20/[address] [facility] [address] [place] [address] Matias Mac MD [address] [place] [address] Social History Tobacco Use Types Packs/Day Years [...] st Contact Info) Description 09/25/2024 2:00 PM [address] [facility] [address] [place] [address] Zayra Powell FNP [address] [place] [place] [address] 10/16/2024 3:30 PM HALL PORTER Office Visit [facility] Gutierrez[address] [place] [address] Brit Gonzáles MD [address] [place] [address] documented as of this encounter Visit Diagnoses Diagnosis Shortness of breath documented in this encounter Care Teams Wood Tank Erector Relationship Specialty Start Date End Date Megan Infante MD [address] [place] [address] PCP - General FAMILY PRACTICE 04/06/16 Piyush Pandey MD [place] Project/Production Manager Imaging CARDIOVASCULAR DISEASE 04/06/16 12/28/23 Sharmila Davis, RUG CLEANER, DEMONSTRATOR SEWING TECHNIQUES-C [address] [facility] [address] [place] [address] NURSE PRACTITIONER 01/04/17 04/03/24 Linda Block MD 619 [facility] [address] [place] [address] [place] Project/Production Manager Imaging CLINICAL CARDIAC ELECTROPHYSIOLOGY 02/08/17 04/12/23 documented as of this encounter
--- OUTSIDE RECORDS SUMMARY | 2024-09-03 20:48 | XMS_ITS | Encounter Summary ---
Author Organization [facility] Address [address] [place] [address]. [place] [address] [place] [address] Care Team Providers Care Framing Mill Supervisor Name Role Phone Piyush Pandey MD Unavailable UnavailMegan Rodriguez MD Primary Care Provider [phone] Sharmila Davis APRN, TAPPING MACHINE OPERATOR AUTOMATIC-C Unavailable Linda Blcok MD Unavailable [phone] Encounter Details Date Type Department Care Team (Late st Contact Info) Description 01/07/[address] [facility] [address] [place] [address] Matias Mac MD [address] [place] [address] Social History Tobacco Use Types Packs/Day Years [...] Contact Info) Description 09/25/2024 2:00 PM MANAGER FARM [facility]ointment [facility] [address] [place] [address] Zayra Powell FNP [address] [place] [address] 10/16/2024 3:30 PM MANAGER FARM Office Visit [facility] Gut[facility] [place] [address] Brit Gonzáles MD 619 [place] [address] documented as of this encounter Visit Diagnoses Not on filedocumented in this encounter Care Teams Framing Mill Supervisor Relationship Specialty Start Date End Date Megan Infante MD [address] [place] [address] PCP - General FAMILY PRACTICE 04/06/16 Piyush Pandey MD [place] Manager Council CARDIOVASCULAR DISEASE 04/06/16 12/28/23 Sharmila Davis, HABILITATIVE INTERVENTIONIST, TAPPING MACHINE OPERATOR AUTOMATIC-C 619 [facility] [address] [place] [address] NURSE PRACTITIONER 01/04/17 04/03/24 Linda Block MD 619 [facility] [address] [place] [address] [place] Manager Council CLINICAL CARDIAC ELECTROPHYSIOLOGY 02/08/17 04/12/23 documented as of this encounter
--- OUTSIDE RECORDS SUMMARY | 2024-09-03 20:48 | XMS_ITS | Encounter Summary ---
Author Organization [facility] Address [address] [place] [address]. [place] [address] [place] [address] Care Team Providers Care Pulling Machine Operator Name Role Phone Piyush Pandey MD Unavailable Unavailabl Megan Leos MD Primary Care Provider [phone] Sharmila Davis APRN, MOSAIC TECHNICIAN-C Unavailable Linda Block MD Unavailable [phone] Encounter Details Date Type Department Care Team (Late st Contact Info) Description 12/21/2003 Abstract [facility] [address] [place] [address] , Generic MD Nikhil Social [...] Contact Info) Description 09/25/2024 2:00 PM PATIENT CARE TECHNICIAN INSTRUCTOR Appointment [facility] [address] [place] [address] Zayra Powell, PRINCIPAL TRAINER [address] [place] [address] 10/16/2024 3:30 PM PATIENT CARE TECHNICIAN INSTRUCTOR Office Visit [facility] [address] [place] [address] Brit Gonzáles MD [address] [place] [address] documented as of this encounter Visit Diagnoses Not on filedocumented in this encounter Care Teams Pulling Machine Operator Relationship Specialty Start Date End Date Megan Infante MD [address] [facility] [place] [address] PCP - General FAMILY PRACTICE 04/06/16 Piyush Pandey MD [place] Nurse Discharge Planner CARDIOVASCULAR DISEASE 04/06/16 12/28/23 Sharmila Davis APRN, MOSAIC TECHNICIAN-C 619 [facility] [address] [place] [address] NURSE PRACTITIONER 01/04/17 04/03/24 Linda Block MD 619 [facility] [address] [place] [address] [place] Nurse Discharge Planner CLINICAL CARDIAC ELECTROPHYSIOLOGY 02/08/17 04/12/23 documented as of this encounter
--- OUTSIDE RECORDS SUMMARY | 2024-09-03 20:48 | XMS_ITS | Encounter Summary ---
Author Organization [facility] Address [address] [place] [address]. [place] [address] [place] [address] Care Team Providers Care Call Circuit Worker Name Role Phone Piyush Pandey MD Unavailable UnavailMegan Rodriguez MD Primary Care Provider [phone] Sharmila Davis APRN, GAGE DESIGNER-C Unavailable Linda Block MD Unavailable [phone] Encounter Details Date Type Department Care Team (Late st Contact Info) Description 04/02/[address] [facility] [address] [place] [address] Matias Mac MD [address] [place] [address] Social History Tobacco Use Types Packs/Day Years [...] st Contact Info) Description 09/25/2024 2:00 PM BLAST[address] HELPER [address] [facility] [address] [place] [address] Zayra Powell FNP [address] [place] [address] [address] 10/16/2024 3:30 PM BLASTER HELPER Office Visit [facility] [place] [address] Brit Gonzáles MD 619 [place] [address] documented as of this encounter Visit Diagnoses Diagnosis Procedure not carried out for other reasons documented in this encounter Care Teams Call Circuit Worker Relationship Specialty Start Date End Date Megan Infante MD [address] [place] [address] PCP - General FAMILY PRACTICE 04/06/16 Piyush Pandey MD [place] Concrete Building Assembler CARDIOVASCULAR DISEASE 04/06/16 12/28/23 Sharmila Davis APRN, GAGE DESIGNER-C 619 [facility] [address] [place] [address] NURSE PRACTITIONER 01/04/17 04/03/24 Linda Block MD 619 [facility] [address] [place] [address] [place] Concrete Building Assembler CLINICAL CARDIAC ELECTROPHYSIOLOGY 02/08/17 04/12/23 documented as of this encounter
--- OUTSIDE RECORDS SUMMARY | 2024-09-03 20:48 | XMS_ITS | Encounter Summary ---
Author Organization [facility] Address [address] [place] [address]. [place] [address] [place] [address] Care Team Providers Care Basin Tender Name Role Phone Piyush Pandey MD Unavailable Unavailabl Megan Leos MD Primary Care Provider [phone] Sharmila Davis APRN GLASS BLOCK BENDER-C Unavailable Linda Block MD Unavailable [phone] Encounter Details Date Type Department Care Team (Late st Contact Info) Description 10/27/2001 Abstract [facility] [address] [place] [...] st Contact Info) Description 09/25/2024 2:00 PM PM HEAD COOK Appointment [facility] [address] [place] [address] Zayra Powell, HARDWOOD FALLER [address] [place] [address] 10/16/2024 3:30 PM PM HEAD COOK Office Visit [facility] [address] [place] [address] Brit Gonzáles MD [address] [place] [address] documented as of this encounter Visit Diagnoses Not on filedocumented in this encounter Care Teams Basin Tender Relationship Specialty Start Date End Date Megan Infante MD [address] [facility] [place] [address] PCP - General FAMILY PRACTICE 04/06/16 Piyush Pandey MD [place] Fringe Knotter CARDIOVASCULAR DISEASE 04/06/16 12/28/23 Sharmila Davis APRN, GLASS BLOCK BENDER-C 619 [facility] [address] [place] [address] NURSE PRACTITIONER 01/04/17 04/03/24 Linda Block MD 619 [facility] [address] [place] [address] [place] Fringe Knotter CLINICAL CARDIAC ELECTROPHYSIOLOGY 02/08/17 04/12/23 documented as of this encounter
--- OUTSIDE RECORDS SUMMARY | 2024-09-03 20:48 | XMS_ITS | Encounter Summary ---
Author Organization [facility] Address [address] [place] [address]. [place] [address] [place] [address] Care Team Providers Care Priming Machine Operator Name Role Phone Piyush Pandey MD Unavailable UnavailMegan Rodriguez MD Primary Care Provider [phone] Sharmila Davis APRN, SCHOOL BUS DRIVER/CUSTODIAN-C Unavailable Linda Block MD Unavailable [phone] Encounter Details Date Type Department Care Team (Late st Contact Info) Description 11/30/2003 Abstract [facility] [address] [place] [address] Matias Mac MD [address] [place] [address] Social History Tobacco Use Types Packs/Day Years [...] st Contact Info) Description 09/25/2024 2:00 PM DRILL PRESS OPERATOR HELPER Appointment [facility] [address] [place] [address] Zayra Powell, UNDERGRADUATE INTERNSHIP [address] [place] [address] 10/16/2024 3:30 PM DRILL PRESS OPERATOR HELPER Office Visit [facility] Gutierrez[address] [place] [address] Brit Gonzáles MD 619 [place] [address] documented as of this encounter Visit Diagnoses Not on filedocumented in this encounter Care Teams Priming Machine Operator Relationship Specialty Start Date End Date Megan Infante MD [address] [place] [phone] PCP - General FAMILY PRACTICE 04/06/16 Piyush Pandey MD [place] Watch Repair Technician CARDIOVASCULAR DISEASE 04/06/16 12/28/23 Sharmila Davis, PHYSICIAN ASSISTANT SURGERY, SCHOOL BUS DRIVER/CUSTODIAN-C 619 [facility] [address] [place] [address] NURSE PRACTITIONER 01/04/17 04/03/24 Linda Block MD 619 [facility] 47 [place] [address] [place] Watch Repair Technician CLINICAL CARDIAC ELECTROPHYSIOLOGY 02/08/17 04/12/23 documented as of this encounter
--- OUTSIDE RECORDS SUMMARY | 2024-09-03 20:48 | XMS_ITS | Encounter Summary ---
Author Organization [facility] Address [address] [place] [address]. [place] [address] [place] [address] Care Team Providers Care Ice Cream Truck Driver Name Role Phone Piyush Pandey MD Unavailable Unavailabl Megan Leos MD Primary Care Provider [phone] Sharmila Davis APRN, PRESS SHOP SUPERVISOR-C Unavailable [phone] Linda Block MD Unavailable [phone] Encounter Details Date Type Department Care Team (Late st Contact Info) Description 02/07/2003 Abstract [facility] [address] [place] [address] , Generic MD Nikhil Social [...] st Contact Info) Description 09/25/2024 2:00 PM ALPINE PATROLLER Appointment [facility] [address] [place] [address] Zayra Powell, HEDIS ABSTRACTOR [address] [place] [address] 10/16/2024 3:30 PM ALPINE PATROLLER Office Visit [facility] [address] [place] [address] Brit Gonzáles MD [address] [place] [address] documented as of this encounter Visit Diagnoses Not on filedocumented in this encounter Care Teams Ice Cream Truck Driver Relationship Specialty Start Date End Date Megan Infante MD [address] [facility] [place] [address] PCP - General FAMILY PRACTICE 04/06/16 Piyush Pandey MD [place] Section Supervisor CARDIOVASCULAR DISEASE 04/06/16 12/28/23 Sharmila Davis APRN, PRESS SHOP SUPERVISOR-C 619 [facility] [address] [place] [address] NURSE PRACTITIONER 01/04/17 04/03/24 Linda Block MD 619 [facility] [address] [place] [address] [place] Section Supervisor CLINICAL CARDIAC ELECTROPHYSIOLOGY 02/08/17 04/12/23 documented as of this encounter
--- OUTSIDE RECORDS SUMMARY | 2024-09-03 20:48 | XMS_ITS | Encounter Summary ---
Author Organization [facility] Address [address] [place] [address]. [place] [address] [place] [address] Care Team Providers Care Roof Fixer Name Role Phone Piyush Pandey MD, Amy E MD Primary Care Provider [phone] Encounter Details Date Type Department Care Team (Late st Contact Info) Description 01/29/2011 [address] [facility] [address] [address] Eun Tovar MD Social History [...] Contact Info) Description 09/25/2024 2:00 PM CHIEF NUCLEAR MEDICINE TECHNOLOGIST Appointment [facility] [address] [place] [address] Zayra Powell, HOT KNIFE FOXING CUTTER [address] [place] [address] 10/16/2024 3:30 PM CHIEF NUCLEAR MEDICINE TECHNOLOGIST Office Visit [facility] [address] [place] [phone] Brit Gonzáles MD [address] [place] [address] documented as of this encounter Visit Diagnoses Not on filedocumented in this encounter Care Teams Roof Fixer Relationship Specialty Start Date End Date Megan Infante MD [address] [facility] [place] [address] PCP - General FAMILY PRACTICE 04/06/16 Piyush Pandey MD [place] Grey Goods Examiner CARDIOVASCULAR DISEASE 04/06/16 12/28/23 documented as of this encounter
--- OUTSIDE RECORDS SUMMARY | 2024-09-03 20:48 | XMS_ITS | Encounter Summary ---
Author Organization [facility] Address [address] [place] [address]. [place] [address] [place] [address] Care Team Providers Care Transition Rn Name Role Phone Piyush Pandey MD Unavailable UnavailMegan Rodriguez MD Primary Care Provider [phone] Sharmila Davis APRN MANAGER CIVIL-C Unavailable Linda Block MD Unavailable [phone] Encounter Details Date Type Department Care Team (Late st Contact Info) Description 04/22/2006 Abstract [facility] [address] [place] [address] Palomo Ponce MD [facility] [place] [address] Social History Tobacco Use Types [...] st Contact Info) Description 09/25/2024 2:00 PM ROUGH PLANER TENDER [facility]ointment [facility] [address] [address] Zayra Powell, COMPUTER TYPESETTER [address] [place] [address] 10/16/2024 3:30 PM ROUGH PLANER TENDER Office Visit [facility] [place] [address] Brit Gonzáles MD 6[address] [place] [address] documented as of this encounter Visit Diagnoses Not on filedocumented in this encounter Care Teams Transition Rn Relationship Specialty Start Date End Date Megan Infante MD [address] [place] [address] PCP - General FAMILY PRACTICE 04/06/16 Piyush Pandey MD [place] Concierge Receptionist CARDIOVASCULAR DISEASE 04/06/16 12/28/23 Sharmila Davis, DANNY, MANAGER CIVIL-C 619 [facility] [address] [place] [address] NURSE PRACTITIONER 01/04/17 04/03/24 Linda Block MD 619 [facility] [address] [place] [address] [place] Concierge Receptionist CLINICAL CARDIAC ELECTROPHYSIOLOGY 02/08/17 04/12/23 documented as of this encounter
--- OUTSIDE RECORDS SUMMARY | 2024-09-03 20:49 | XMS_ITS | Encounter Summary ---
Author Organization [facility] Address [address] [place] [address]. [place] [address] [place] [address] Care Team Providers Care Curtain Inspector Name Role Phone Piyush Pandey MD Unavailable Unavailabl Megan Leos MD Primary Care Provider [phone] Sharmila Davis APRN, RESIDENTIAL CARE OFFICER-C Unavailable Linda Block MD Unavailable [phone] Encounter Details Date Type Department Care Team (Late st Contact Info) Description 07/10/1999 Abstract [facility] [address] [place] [address] , Generic MD Nikhil Social [...] Contact Info) Description 09/25/2024 2:00 PM UTILITY ASSEMBLER Appointment [facility] [address] [place] [address] Zayra Powell, RESTAURANT BUSSER [address] [place] [address] 10/16/2024 3:30 PM UTILITY ASSEMBLER Office Visit [facility] [address] [place] [phone] Brit Gonzáles MD [address] [place] [address] documented as of this encounter Visit Diagnoses Not on filedocumented in this encounter Care Teams Curtain Inspector Relationship Specialty Start Date End Date Megan Infante MD [address] [facility] [place] [address] PCP - General FAMILY PRACTICE 04/06/16 Piyush Pandey MD [place] Fire Observer CARDIOVASCULAR DISEASE 04/06/16 12/28/23 Sharmila Davis APRN, RESIDENTIAL CARE OFFICER-C 619 [facility] [address] [place] [address] NURSE PRACTITIONER 01/04/17 04/03/24 Linda Block MD 619 [facility] [address] [place] [address] [place] Fire Observer CLINICAL CARDIAC ELECTROPHYSIOLOGY 02/08/17 04/12/23 documented as of this encounter
--- OUTSIDE RECORDS SUMMARY | 2024-09-03 20:49 | XMS_ITS | Encounter Summary ---
Author Organization [facility] Address [address] [place] [address]. [place] [address] [place] [address] Care Team Providers Care Fund Accounting Manager Name Role Phone Piyush Pandey MD Unavailable Unavailabl Megan Leos MD Primary Care Provider [phone] Sharmila Davis APRN, PULMONARY DISEASE SPECIALIST-C Unavailable Linda Block MD Unavailable [phone] Encounter Details Date Type Department Care Team (Late st Contact Info) Description 06/30/1996 Abstract [facility] [address] [place] [address] , Generic MD Nikhil Social [...] st Contact Info) Description 09/25/2024 2:00 PM CAN LABELER Appointment [facility] [address] [place] [address] Zayra Powell, REAL ESTATE OFFICER [address] [place] [address] 10/16/2024 3:30 PM CAN LABELER Office Visit [facility] [address] [place] [address] Brit Gonzáles MD [address] [place] [address] documented as of this encounter Visit Diagnoses Not on filedocumented in this encounter Care Teams Fund Accounting Manager Relationship Specialty Start Date End Date Megan Infante MD [address] [facility] [place] [address] PCP - General FAMILY PRACTICE 04/06/16 Piyush Pandey MD [place] Label Designer CARDIOVASCULAR DISEASE 04/06/16 12/28/23 Sharmila Davis APRN, PULMONARY DISEASE SPECIALIST-C 619 [facility] [address] [place] [address] NURSE PRACTITIONER 01/04/17 04/03/24 Linda Block MD 619 [facility] [address] [place] [address] [place] Label Designer CLINICAL CARDIAC ELECTROPHYSIOLOGY 02/08/17 04/12/23 documented as of this encounter
--- OUTSIDE RECORDS SUMMARY | 2024-09-03 20:49 | XMS_ITS | Encounter Summary ---
Author Organization [facility] Address [address] [place] [address]. [place] [address] [place] [address] Care Team Providers Care Tight Barrel Inspector Name Role Phone Piyush Pandey MD Unavailable Unavailabl Megan Leos MD Primary Care Provider [phone] Sharmila Davis APRN, DIRECTOR OF MATERIALS MANAGEMENT-C Unavailable Linda Block MD Unavailable [phone] Encounter Details Date Type Department Care Team (Late st Contact Info) Description 09/09/1998 Abstract [facility] [address] [place] [address] , Generic MD Nikhil Social [...] Contact Info) Description 09/25/2024 2:00 PM ENTERTAINMENT USHER Appointment [facility] [address] [place] [address] Zayra Powell, CUSTOMER ACCOUNT ADMINISTRATOR [address] [place] [address] 10/16/2024 3:30 PM ENTERTAINMENT USHER Office Visit [facility] [address] [place] [address] Brit Gonzáles MD [address] [place] [address] documented as of this encounter Visit Diagnoses Not on filedocumented in this encounter Care Teams Tight Barrel Inspector Relationship Specialty Start Date End Date Megan Infante MD [address] [facility] [place] [address] PCP - General FAMILY PRACTICE 04/06/16 Piyush Pandey MD [place] Taker Down CARDIOVASCULAR DISEASE 04/06/16 12/28/23 Sharmila Davis APRN, DIRECTOR OF MATERIALS MANAGEMENT-C 619 [facility] [address] [place] [address] NURSE PRACTITIONER 01/04/17 04/03/24 Linda Block MD 619 [facility] [address] [place] [address] [place] Taker Down CLINICAL CARDIAC ELECTROPHYSIOLOGY 02/08/17 04/12/23 documented as of this encounter
--- OUTSIDE RECORDS SUMMARY | 2024-09-03 20:49 | XMS_ITS | Encounter Summary ---
Author Organization [facility] Address [address] [place] [address]. [place] [address] [place] [address] Care Team Providers Care Fishing Rod Marker Name Role Phone Piyush Pandey MD Unavailable Unavailabl Megan Leos MD Primary Care Provider [phone] Sharmila Davis APRN, CLINICAL LABORATORY AIDES TEACHER-C Unavailable Linda Block MD Unavailable [phone] Encounter Details Date Type Department Care Team (Late st Contact Info) Description 05/27/1999 Abstract [facility] [address] [place] [address] , Generic MD Nikhil Social [...] st Contact Info) Description 09/25/2024 2:00 PM KIOSK SALES REPRESENTATIVE Appointment [facility] [address] [place] [address] Zayra Powell, NAMED ACCOUNT EXECUTIVE [address] [place] [address] 10/16/2024 3:30 PM KIOSK SALES REPRESENTATIVE Office Visit [facility] [address] [place] [phone] Brit Gonzáles MD [address] [place] [address] documented as of this encounter Visit Diagnoses Not on filedocumented in this encounter Care Teams Fishing Rod Marker Relationship Specialty Start Date End Date Megan Infante MD [address] [facility] [place] [address] PCP - General FAMILY PRACTICE 04/06/16 Piyush Pandey MD [place] Lead Security Officer CARDIOVASCULAR DISEASE 04/06/16 12/28/23 Sharmila Davis APRN, CLINICAL LABORATORY AIDES TEACHER-C 619 [facility] [address] [place] [address] NURSE PRACTITIONER 01/04/17 04/03/24 Linda Block MD 619 [facility] [address] [place] [address] [place] Lead Security Officer CLINICAL CARDIAC ELECTROPHYSIOLOGY 02/08/17 04/12/23 documented as of this encounter
--- OUTSIDE RECORDS SUMMARY | 2024-09-03 20:49 | XMS_ITS | Encounter Summary ---
Author Organization [facility] Address [address] [place] [address]. [place] [address] [place] [address] Care Team Providers Care Winder Operator Name Role Phone Piyush Pandey MD Unavailable Unavailabl Megan Leos MD Primary Care Provider [phone] Sharmila Davis APRN, FUNERAL DIRECTOR/EMBALMER/OWNER-C Unavailable Linda Block MD Unavailable [phone] Encounter Details Date Type Department Care Team (Late st Contact Info) Description 09/17/1997 Abstract SFL CONVERSION [address] [place] [address] , Generic MD Nikhil Social [...] Contact Info) Description 09/25/2024 2:00 PM FOOD DEMONSTRATOR Appointment [facility] [address] [place] [address] Zayra Powell, FINGER BUFFS ASSEMBLER [address] [place] [address] 10/16/2024 3:30 PM FOOD DEMONSTRATOR Office Visit [facility] [address] [place] [address] Brit Gonzáles MD [address] [place] [address] documented as of this encounter Visit Diagnoses Not on filedocumented in this encounter Care Teams Winder Operator Relationship Specialty Start Date End Date Megan Infante MD [address] [facility] [place] [address] PCP - General FAMILY PRACTICE 04/06/16 Piyush Pandey MD [place] Kinesiotherapist CARDIOVASCULAR DISEASE 04/06/16 12/28/23 Sharmila Davis APRN, FUNERAL DIRECTOR/EMBALMER/OWNER-C [address] [facility] [address] [place] [address] NURSE PRACTITIONER 01/04/17 04/03/24 Linda Block MD [address] [facility] [address] [place] [address] [place] Kinesiotherapist CLINICAL CARDIAC ELECTROPHYSIOLOGY 02/08/17 04/12/23 documented as of this encounter
--- OUTSIDE RECORDS SUMMARY | 2024-09-03 20:49 | XMS_ITS | Encounter Summary ---
Author Organization [facility] Address [address] [place] [address]. [place] [address] [place] [address] Care Team Providers Care Buffing Wheel Raker Name Role Phone Piyush Pandey MD Unavailable Unavailabl Megan Leos MD Primary Care Provider [phone] Sharmila Davis APRN, MEDICAL BILLING CODER-C Unavailable [phone] Linda Block MD Unavailable [phone] Encounter Details Date Type Department Care Team (Late st Contact Info) Description 12/25/1998 Abstract [facility] CONVERSION [address] [place] [address] , Generic MD Nikhil Social [...] st Contact Info) Description 09/25/2024 2:00 PM PICKING MACHINE OPERATOR HELPER Appointment [facility] [address] [place] [address] Zayra Powell, PIZZA COOK [address] [place] [address] 10/16/2024 3:30 PM PICKING MACHINE OPERATOR HELPER Office Visit [facility] [address] [place] [address] Brit Gonzáles MD [address] [place] [address] documented as of this encounter Visit Diagnoses Not on filedocumented in this encounter Care Teams Buffing Wheel Raker Relationship Specialty Start Date End Date Megan Infante MD [address] [facility] [place] [address] PCP - General FAMILY PRACTICE 04/06/16 Piyush Pandey MD [place] Scuba Diving Teacher CARDIOVASCULAR DISEASE 04/06/16 12/28/23 Sharmila Davis APRN, MEDICAL BILLING CODER-C [address] [facility] [address] [place] [address] NURSE PRACTITIONER 01/04/17 04/03/24 Linda Block MD [address] [facility] [address] [place] [address] [place]uba Diving Teacher CLINICAL CARDIAC ELECTROPHYSIOLOGY 02/08/17 04/12/23 documented as of this encounter
--- OUTSIDE RECORDS SUMMARY | 2024-09-03 20:49 | XMS_ITS | Encounter Summary ---
Author Organization [facility] Address [address] [place] [address]. [place] [address] [place] [address] Care Team Providers Care Street Openings Inspector Name Role Phone Piyush Pandey MD Unavailable Unavailabl Megan Leos MD Primary Care Provider [phone] Sharmila Davis APRN, DATA INTEGRATION DEVELOPER-C Unavailable Linda Block MD Unavailable [phone] Encounter Details Date Type Department Care Team (Late st Contact Info) Description 05/13/2000 Abstract [facility] CONVERSION [address] [place] [address] , Generic MD Nikhil Social [...] Info) Description 09/25/2024 2:00 PM SALES AND SERVICE CONSULTANT Appointment [facility] [address] [place] [address] Zayra Powell, CHIP TUNER [address] [place] [address] 10/16/2024 3:30 PM SALES AND SERVICE CONSULTANT Office Visit [facility] [address] [place] [phone] Brit Gonzáles MD [address] [place] [address] documented as of this encounter Visit Diagnoses Not on filedocumented in this encounter Care Teams Street Openings Inspector Relationship Specialty Start Date End Date Megan Infante MD [address] [facility] [place] [address] PCP - General FAMILY PRACTICE 04/06/16 Piyush Pandey MD [place] Eyelet Machine Operator CARDIOVASCULAR DISEASE 04/06/16 12/28/23 Sharmila Davis APRN, DATA INTEGRATION DEVELOPER-C [address] [facility] [address] [place] [address] NURSE PRACTITIONER 01/04/17 04/03/24 Linda Block MD 6[address] [facility] [address] [place] [address] [place] Eyelet Machine Operator CLINICAL CARDIAC ELECTROPHYSIOLOGY 02/08/17 04/12/23 documented as of this encounter
--- OUTSIDE RECORDS SUMMARY | 2024-09-03 20:49 | XMS_ITS | Encounter Summary ---
Author Organization [facility] Address [address] [place] [address]. [place] [address] [place] [address] Care Team Providers Care Cobol Programmer Name Role Phone Piyush Pandey MD Unavailable Unavailabl Megan Leos MD Primary Care Provider [phone] Sharmila Davis APRN, BUSINESS DIVISION CHAIR-C Unavailable Linda Block MD Unavailable [phone] Encounter Details Date Type Department Care Team (Late st Contact Info) Description 10/06/1996 Abstract [facility] CONVERSION [address] [place] [address] , Generic MD Nikhil Social [...] st Contact Info) Description 09/25/2024 2:00 PM APPLICATION SUPPORT ANALYST Appointment [facility] [address] [place] [address] Zayra Powell, RESTAURANT WORKER [address] [place] [address] 10/16/2024 3:30 PM APPLICATION SUPPORT ANALYST Office Visit [facility] [address] [place] [address] Brit Gonzáles MD [address] [place] [address] documented as of this encounter Visit Diagnoses Not on filedocumented in this encounter Care Teams Cobol Programmer Relationship Specialty Start Date End Date Megan Infante MD [address] [facility] [place] [address] PCP - General FAMILY PRACTICE 04/06/16 Piyush Pandey MD [place] Mailroom Associate CARDIOVASCULAR DISEASE 04/06/16 12/28/23 Sharmila Davis APRN, BUSINESS DIVISION CHAIR-C 6[address] [facility] [address] [place] [address] NURSE PRACTITIONER 01/04/17 04/03/24 Linda Block MD 619 [facility] [address] [place] [address] [place] Mailroom Associate CLINICAL CARDIAC ELECTROPHYSIOLOGY 02/08/17 04/12/23 documented as of this encounter
--- OUTSIDE RECORDS SUMMARY | 2024-09-03 20:49 | XMS_ITS | Encounter Summary ---
Author Organization [facility] Address [address] [place] [address]. [place] [address] [place] [address] Care Team Providers Care Button Sewer Name Role Phone Piyush Pandye MD Unavailable Unavailabl Megan Leos MD Primary Care Provider [phone] Sharmila Davis APRN, MOLD FINISHER-C Unavailable Linda Block MD Unavailable [phone] Encounter Details Date Type Department Care Team (Late st Contact Info) Description 03/05/1997 Abstract [facility] CONVERSION [address] [place] [address] , Generic MD Nikhil Social [...] st Contact Info) Description 09/25/2024 2:00 PM DAMPENER OPERATOR Appointment [facility] [address] [place] [address] Zayra Powell, ANIMAL NUTRITION TEACHER [address] [place] [address] 10/16/2024 3:30 PM DAMPENER OPERATOR Office Visit [facility] [address] [place] [phone] Brit Gonzáles MD [address] [place] [address] documented as of this encounter Visit Diagnoses Not on filedocumented in this encounter Care Teams Button Sewer Relationship Specialty Start Date End Date Megan Infante MD [address] [facility] [place] [address] PCP - General FAMILY PRACTICE 04/06/16 Piyush Pandey MD [place] Ticket Machine Operator CARDIOVASCULAR DISEASE 04/06/16 12/28/23 Sharmila Davis APRN, MOLD FINISHER-C 619 [facility] [address] [place] [address] NURSE PRACTITIONER 01/04/17 04/03/24 Linda Block MD 619 [facility] [address] [place] [address] [place] Ticket Machine Operator CLINICAL CARDIAC ELECTROPHYSIOLOGY 02/08/17 04/12/23 documented as of this encounter
--- OUTSIDE RECORDS SUMMARY | 2024-09-03 20:49 | XMS_ITS | Encounter Summary ---
Author Organization [facility] Address [address] [place] [address]. [place] [address] [place] [address] Care Team Providers Care Stretcher Operator Name Role Phone Piyush Pandey MD Unavailable Unavailabl Megan Leos MD Primary Care Provider [phone] Sharmila Davis APRN, PRINTER MAINTAINER-C Unavailable Linda Block MD Unavailable [phone] Encounter Details Date Type Department Care Team (Late st Contact Info) Description 02/06/2000 Abstract [facility] CONVERSION [address] [place] [address] , Generic MD Nikhil Social [...] Contact Info) Description 09/25/2024 2:00 PM NUCLEAR PLANT INSTRUMENT TECHNICIAN Appointment [facility] [address] [place] [address] Zayra Powell, AUTOMATIC DOOR MECHANIC [address] [place] [address] 10/16/2024 3:30 PM NUCLEAR PLANT INSTRUMENT TECHNICIAN Office Visit [facility] [address] [place] [phone] Brit Gonzáles MD [address] [place] [address] documented as of this encounter Visit Diagnoses Not on filedocumented in this encounter Care Teams Stretcher Operator Relationship Specialty Start Date End Date Megan Infante MD [address] [facility] [place] [address] PCP - General FAMILY PRACTICE 04/06/16 Piyush Pandey MD [place] Data Processing Equipment Repairer CARDIOVASCULAR DISEASE 04/06/16 12/28/23 Sharmila Davis APRN, PRINTER MAINTAINER-C 6[address] [facility] [address] [place] [address] NURSE PRACTITIONER 01/04/17 04/03/24 Linda Block MD 619 [facility] [address] [place] [address] [place] Data Processing Equipment Repairer CLINICAL CARDIAC ELECTROPHYSIOLOGY 02/08/17 04/12/23 documented as of this encounter
--- OUTSIDE RECORDS SUMMARY | 2024-09-03 20:49 | XMS_ITS | Encounter Summary ---
Author Organization [facility] Address [address] [place] [address]. [place] [address] [place] [address] Care Team Providers Care Enrollment Management Manager Name Role Phone Piyush Pandey MD Unavailable Unavailabl Megan Leos MD Primary Care Provider [phone] Sharmila Davis APRN AUTOMATIC CLIPPER-C Unavailable Linda Block MD Unavailable [phone] Encounter Details Date Type Department Care Team (Late st Contact Info) Description 10/09/1998 Abstract [facility] CONVERSION [address] [place] [address] , Generic MD Nikhil Social [...] st Contact Info) Description 09/25/2024 2:00 PM VENEREAL DISEASE CONTROL HEAD Appointment [facility] [address] [place] [address] Zayra Powell, PSYCHIATRIC CLINICAL NURSE SPECIALIST [address] [place] [address] 10/16/2024 3:30 PM VENEREAL DISEASE CONTROL HEAD Office Visit [facility] [address] [place] [phone] Brit Gonzáles MD [address] [place] [address] documented as of this encounter Visit Diagnoses Not on filedocumented in this encounter Care Teams Enrollment Management Manager Relationship Specialty Start Date End Date Megan Infante MD [address] [facility] [place] [address] PCP - General FAMILY PRACTICE 04/06/16 Piyush Pandey MD [place] Mold Yard Crane Operator CARDIOVASCULAR DISEASE 04/06/16 12/28/23 Sharmila Davis APRN, AUTOMATIC CLIPPER-C 619 [facility] [address] [place] [address] NURSE PRACTITIONER 01/04/17 04/03/24 Linda Block MD 619 [facility] [address] [place] [address] [place] Mold Yard Crane Operator CLINICAL CARDIAC ELECTROPHYSIOLOGY 02/08/17 04/12/23 documented as of this encounter
--- OUTSIDE RECORDS SUMMARY | 2024-09-03 20:49 | XMS_ITS | Encounter Summary ---
Author Organization [facility] Address [address] [place] [address]. [place] [address] [place] [address] Care Team Providers Care Conference Center Coordinator Name Role Phone Piyush Pandey MD Unavailable Unavailabl Megan Leos MD Primary Care Provider [phone] Sharmila Davis APRN, GRINDER SET UP OPERATOR THREAD-C Unavailable Linda Block MD Unavailable [phone] Encounter Details Date Type Department Care Team (Late st Contact Info) Description 12/01/1999 Abstract SFL CONVERSION [address] [place] [address] , Generic MD Nikhil Social [...] st Contact Info) Description 09/25/2024 2:00 PM DIAGNOSTIC TECHNICIAN Appointment [facility] [address] [place] [address] Zayra Powell, STRAINER MILL OPERATOR [address] [place] [address] 10/16/2024 3:30 PM DIAGNOSTIC TECHNICIAN Office Visit [facility] [address] [place] [phone] Brit Gonzáles MD [address] [place] [address] documented as of this encounter Visit Diagnoses Not on filedocumented in this encounter Care Teams Conference Center Coordinator Relationship Specialty Start Date End Date Megan Infante MD [address] [facility] [place] [address] PCP - General FAMILY PRACTICE 04/06/16 Piyush Pandey MD [place] Gravure Press Operator CARDIOVASCULAR DISEASE 04/06/16 12/28/23 Sharmila Davis APRN, GRINDER SET UP OPERATOR THREAD-C 619 [facility] [address] [place] [address] NURSE PRACTITIONER 01/04/17 04/03/24 Linda Block MD 619 [facility] [address] [place] [address] [place] Gravure Press Operator CLINICAL CARDIAC ELECTROPHYSIOLOGY 02/08/17 04/12/23 documented as of this encounter
--- OUTSIDE RECORDS SUMMARY | 2024-09-03 20:49 | XMS_ITS | Encounter Summary ---
Author Organization [facility] Address [facility] [address] [place] [address] Care Team Providers Care Senior Naval Parachutist Name Role Phone Piyush Pandey MD Unavailable Unavailabl e Megan Infante MD Primary Care Provider [phone] Sharmila Davis APRN CIRCUS SUPERVISOR-C Unavailable Linda Block MD Unavailable [phone] Encounter Details Date Type Department Care Team (Late st Contact Info) Description 09/20/2000 Abstract [facility] [address] [address] Social History Tobacco Use Types Packs/Day Years [...] st Contact Info) Description 09/25/2024 2:00 PM INTERNET MEDIA PLANNER Appointment [facility] [address] [place] [address] Zayra Powell, SOLID TIRE TUBER MACHINE OPERATOR [address] [place] [address] 10/16/2024 3:30 PM INTERNET MEDIA PLANNER Office Visit [facility] [address] [place] [address] [phone] Brit Gonzáles MD 619 [place] [address] documented as of this encounter Visit Diagnoses Not on filedocumented in this encounter Care Teams Senior Naval Parachutist Relationship Specialty Start Date End Date Megan Infante MD [address] [facility] [place] [address] PCP - General FAMILY PRACTICE 04/06/16 Piyush Pandey MD [place] Customer Service Receptionist CARDIOVASCULAR DISEASE 04/06/16 12/28/23 Sharmila Davis APRN, CIRCUS SUPERVISOR-C 619 [facility] [address] [place] [address] NURSE PRACTITIONER 01/04/17 04/03/24 Linda Block MD 619 [facility] [address] [address] [place] Customer Service Receptionist CLINICAL CARDIAC ELECTROPHYSIOLOGY 02/08/17 04/12/23 documented as of this encounter
--- OUTSIDE RECORDS SUMMARY | 2024-09-03 20:49 | XMS_ITS | Encounter Summary ---
Author Organization [facility] Address [address] [place] [address]. [place] [address] [place] [address] Care Team Providers Care Plasma Processing Centrifuge Operator Name Role Phone Piyush Pandey MD Unavailable Unavailabl Megan Leos MD Primary Care Provider [phone] Sharmila Davis APRN, DIVER'S TENDER-C Unavailable [phone] Linda Block MD Unavailable [phone] Encounter Details Date Type Department Care Team (Late st Contact Info) Description 03/17/2000 Abstract [facility] CONVERSION [address] [place] [address] , Generic MD Nikhil Social [...] Contact Info) Description 09/25/2024 2:00 PM AIRCRAFT INSTRUMENT TESTER Appointment [facility] [address] [place] [address] Zayra Powell, LENS BLANK GAUGER [address] [place] [address] 10/16/2024 3:30 PM AIRCRAFT INSTRUMENT TESTER Office Visit [facility] [address] [place] [phone] Brit Gonzáles MD [address] [place] [address] documented as of this encounter Visit Diagnoses Not on filedocumented in this encounter Care Teams Plasma Processing Centrifuge Operator Relationship Specialty Start Date End Date Megan Infante MD [address] [facility] [place] [address] PCP - General FAMILY PRACTICE 04/06/16 Piyush Pandey MD [place] Amf Mechanic CARDIOVASCULAR DISEASE 04/06/16 12/28/23 Sharmila Davis APRN, DIVER'S TENDER-C 619 [facility] [address] [place] [address] NURSE PRACTITIONER 01/04/17 04/03/24 Linda Block MD 619 [facility] [address] [place] [address] [place] Amf Mechanic CLINICAL CARDIAC ELECTROPHYSIOLOGY 02/08/17 04/12/23 documented as of this encounter
--- OUTSIDE RECORDS SUMMARY | 2024-09-03 20:49 | XMS_ITS | Encounter Summary ---
Author Organization [facility] Address [address] [place] [address]. [place] [address] [place] [address] Care Team Providers Care Maintenance Mechanic Helper Name Role Phone Piyush Pandey MD Unavailable Unavailabl Megan Leos MD Primary Care Provider [phone] Sharmila Davis APRN, INGOT HEADER-C Unavailable Linda Block MD Unavailable [phone] Encounter Details Date Type Department Care Team (Late st Contact Info) Description 02/24/2000 Abstract SFL CONVERSION [address] [place] [address] , Generic MD Nikhil Social [...] st Contact Info) Description 09/25/2024 2:00 PM SEAFOOD FARMER Appointment [facility] [address] [place] [address] Zayra Powell, DENTURE LABORATORY TECHNICIAN [address] [place] [address] 10/16/2024 3:30 PM SEAFOOD FARMER Office Visit [facility] [address] [place] [address] Brit Gonzáles MD [address] [place] [address] documented as of this encounter Visit Diagnoses Not on filedocumented in this encounter Care Teams Maintenance Mechanic Helper Relationship Specialty Start Date End Date Megan Infante MD [address] [facility] [place] [address] PCP - General FAMILY PRACTICE 04/06/16 Piyush Pandey MD [place] Safety Advisor CARDIOVASCULAR DISEASE 04/06/16 12/28/23 Sharmila Davis APRN, INGOT HEADER-C 619 [facility] [address] [place] [address] NURSE PRACTITIONER 01/04/17 04/03/24 Linda Block MD 619 [facility] [address] [place] [address] [place] Safety Advisor CLINICAL CARDIAC ELECTROPHYSIOLOGY 02/08/17 04/12/23 documented as of this encounter
--- OUTSIDE RECORDS SUMMARY | 2024-09-03 20:49 | XMS_ITS | Encounter Summary ---
Author Organization [facility] Address [address] [place] [address]. [place] [address] [place] [address] Care Team Providers Care Retort Furnace Helper Name Role Phone Piyush Pandey MD Unavailable Unavailabl Megan Leos MD Primary Care Provider [phone] Sharmila Davis APRN, CLINICAL APPEALS REVIEWER-C Unavailable [phone] Linda Block MD Unavailable [phone] Encounter Details Date Type Department Care Team (Late st Contact Info) Description 05/17/1998 Abstract SFL CONVERSION [address] [place] [address] , Generic MD Nikhil Social [...] Contact Info) Description 09/25/2024 2:00 PM BILINGUAL STUDENT TUTOR Appointment [facility] [address] [place] [address] Zayra Powell, GENERAL OFFICE CLERK [address] [place] [address] 10/16/2024 3:30 PM BILINGUAL STUDENT TUTOR Office Visit [facility] [address] [place] [phone] Brit Gonzáles MD [address] [place] [address] documented as of this encounter Visit Diagnoses Not on filedocumented in this encounter Care Teams Retort Furnace Helper Relationship Specialty Start Date End Date Megan Infante MD [address] [facility] [place] [address] PCP - General FAMILY PRACTICE 04/06/16 Piyush Pandey MD [place] Manager Copy CARDIOVASCULAR DISEASE 04/06/16 12/28/23 Sharmila Davis APRN, CLINICAL APPEALS REVIEWER-C 619 [facility] [address] [place] [address] NURSE PRACTITIONER 01/04/17 04/03/24 Linda Block MD 619 [facility] [address] [place] [address] [place] Manager Copy CLINICAL CARDIAC ELECTROPHYSIOLOGY 02/08/17 04/12/23 documented as of this encounter
--- OUTSIDE RECORDS SUMMARY | 2024-09-03 20:49 | XMS_ITS | Encounter Summary ---
Author Organization [facility] Address [address] [place] [address]. [place] [address] [place] [address] Care Team Providers Care Ship Engineer Name Role Phone Piyush Pandey MD Unavailable Unavailabl Megan Leos MD Primary Care Provider [phone] Sharmila Davis APRN HAIR ASSISTANT-C Unavailable Linda Block MD Unavailable [phone] Encounter Details Date Type Department Care Team (Late st Contact Info) Description 03/08/2000 Abstract [facility] CONVERSION [address] [place] [address] , Generic MD Nikhil Social [...] Info) Description 09/25/2024 2:00 PM CUSTOMER SERVICE SUPERVISOR Appointment [facility] [address] [place] [address] Zayra Powell, STALLION KEEPER [address] [place] [address] 10/16/2024 3:30 PM CUSTOMER SERVICE SUPERVISOR Office Visit [facility] [address] [place] [phone] Brit Gonzáles MD [address] [place] [address] documented as of this encounter Visit Diagnoses Not on filedocumented in this encounter Care Teams Ship Engineer Relationship Specialty Start Date End Date Megan Infante MD [address] [facility] [place] [address] PCP - General FAMILY PRACTICE 04/06/16 Piyush Pandey MD [place] Head Of Art CARDIOVASCULAR DISEASE 04/06/16 12/28/23 Sharmila Davis APRN, HAIR ASSISTANT-C 619 [facility] [address] [place] [address] NURSE PRACTITIONER 01/04/17 04/03/24 Linda Block MD 619 [facility] [address] [place] [address] [place] Head Of Art CLINICAL CARDIAC ELECTROPHYSIOLOGY 02/08/17 04/12/23 documented as of this encounter
--- OUTSIDE RECORDS SUMMARY | 2024-09-03 20:49 | XMS_ITS | Encounter Summary ---
Author Organization [facility] Address [facility] [place] [address] [place] [address] Care Team Providers Care Chaplain Name Role Phone Piyush Pandey MD Unavailable Unavailabl e Megan Infante MD Primary Care Provider [phone] Sharmila Davis APRN, FOURTH MATE-C Unavailable Linda Block MD Unavailable [phone] Encounter Details Date Type Department Care Team (Late st Contact Info) Description 01/07/2000 Abstract SJS CONVERSION [address] [place], [place] [address] Jacinto Delgado MD [address] [facility] [address] [place] [address] Social History Tobacco Use Types Packs/Day Years [...] st Contact Info) Description 09/25/2024 2:00 PM KNITTED GOODS SHAPER Appointment [facility] [address] [place] [address] Zayra Powell FNP [address] [place] [address] 10/16/2024 3:30 PM KNITTED GOODS SHAPER Office Visit [facility] [address] [place] [address] Brit Gonzáles MD [address] [place] [address] documented as of this encounter Visit Diagnoses Not on filedocumented in this encounter Care Teams Chaplain Relationship Specialty Start Date End Date Megan Infante MD [address] [place] [address] PCP - General FAMILY PRACTICE 04/06/16 Piyush Pandey MD [place] Farmworker Bulbs CARDIOVASCULAR DISEASE 04/06/16 12/28/23 Sharmila Davis APRN, FOURTH MATE-C [address] [facility] [address]P87 [place] [address] NURSE PRACTITIONER 01/04/17 04/03/24 Linda Block MD [address] [facility] [address] [place] [address] [place] Farmworker Bulbs CLINICAL CARDIAC ELECTROPHYSIOLOGY 02/08/17 04/12/23 documented as of this encounter
--- OUTSIDE RECORDS SUMMARY | 2024-09-03 20:49 | XMS_ITS | Encounter Summary ---
Author Organization [facility] Address [address] [place] [address]. [place] [address] [place] [address] Care Team Providers Care Food Assembler Kitchen Name Role Phone Piyush Pandey MD Unavailable Unavailabl Megan Leos MD Primary Care Provider [phone] Sharmila Davis APRN, SPECIAL EDUCATION ADMINISTRATOR-C Unavailable Linda Block MD Unavailable [phone] Encounter Details Date Type Department Care Team (Late st Contact Info) Description 08/29/1999 Abstract SFL CONVERSION [address] [place] [address] , Generic MD Nikhil Social [...] Contact Info) Description 09/25/2024 2:00 PM ELECTRICAL POWER ENGINEER Appointment [facility] [address] [place] [address] Zayra Powell, DEFECT CUTTER [address] [place] [address] 10/16/2024 3:30 PM ELECTRICAL POWER ENGINEER Office Visit [facility] [address] [place] [address] Brit Gonzáles MD [address] [place] [address] documented as of this encounter Visit Diagnoses Not on filedocumented in this encounter Care Teams Food Assembler Kitchen Relationship Specialty Start Date End Date Megan Infante MD [address] [facility] [place] [address] PCP - General FAMILY PRACTICE 04/06/16 Piyush Pandey MD [place] Drop Man CARDIOVASCULAR DISEASE 04/06/16 12/28/23 Sharmila Davis APRN, SPECIAL EDUCATION ADMINISTRATOR-C 619 [facility] 4P57 [place] [address] NURSE PRACTITIONER 01/04/17 04/03/24 Linda Block MD 619 [facility] 4P57 [place] [address] [place] Drop Man CLINICAL CARDIAC ELECTROPHYSIOLOGY 02/08/17 04/12/23 documented as of this encounter
--- OUTSIDE RECORDS SUMMARY | 2024-09-03 20:49 | XMS_ITS | Encounter Summary ---
Author Organization [facility] Address [address] [place] [address]. [place] [address] [place] [address] Care Team Providers Care Rail Car Welder Name Role Phone Piyush Pandey MD Unavailable Unavailabl Megan Leos MD Primary Care Provider [phone] Sharmila Davis APRN, MANUFACTURING MAINTENANCE MECHANIC-C Unavailable [phone] Linda Block MD Unavailable [phone] Encounter Details Date Type Department Care Team (Late st Contact Info) Description 12/15/1995 Abstract SFL CONVERSION [address] [place] [address] , Generic MD Nikhil Social [...] Contact Info) Description 09/25/2024 2:00 PM CITY RECORDER Appointment [facility] [address] [place] [address] Zayra Powell, INSURANCE CLAIMS EXAMINER [address] [place] [address] 10/16/2024 3:30 PM CITY RECORDER Office Visit [facility] [address] [place] [address] Brit Gonzáles MD [address] [place] [address] documented as of this encounter Visit Diagnoses Not on filedocumented in this encounter Care Teams Rail Car Welder Relationship Specialty Start Date End Date Megan Infante MD [address] [facility] [place] [address] PCP - General FAMILY PRACTICE 04/06/16 Piyush Pandey MD [place] Diet Attendant CARDIOVASCULAR DISEASE 04/06/16 12/28/23 Sharmila Davis APRN, MANUFACTURING MAINTENANCE MECHANIC-C 619 [facility] 4P57 [place] [address] NURSE PRACTITIONER 01/04/17 04/03/24 Linda Block MD 619 [facility] 4P57 [place] [address] [place] Diet Attendant CLINICAL CARDIAC ELECTROPHYSIOLOGY 02/08/17 04/12/23 documented as of this encounter
--- OUTSIDE RECORDS SUMMARY | 2024-09-03 20:49 | XMS_ITS | Encounter Summary ---
Author Organization [facility] Address [address] [place] [address]. [place] [address] [place] [address] Care Team Providers Care Shop Blacksmith Name Role Phone Piyush Pandey MD Unavailable Unavailabl Megan Leos MD Primary Care Provider [phone] Sharmila Davis APRN, GRINDER SETUP OPERATOR-C Unavailable [phone] Linda Block MD Unavailable [phone] Encounter Details Date Type Department Care Team (Late st Contact Info) Description 01/05/2000 Abstract SFL CONVERSION [address] [place] [address] , Generic MD Nikhil Social [...] Contact Info) Description 09/25/2024 2:00 PM MERCHANDISING DIRECTOR Appointment [facility] [address] [place] [address] Zayra Powell, BOOT LACE CUTTER MACHINE [address] [place] [address] 10/16/2024 3:30 PM MERCHANDISING DIRECTOR Office Visit [facility] [address] [place] [phone] Brit Gonzáles MD [address] [place] [address] documented as of this encounter Visit Diagnoses Not on filedocumented in this encounter Care Teams Shop Blacksmith Relationship Specialty Start Date End Date Megan Infante MD [address] [facility] [place] [address] PCP - General FAMILY PRACTICE 04/06/16 Piyush Pandey MD [place] Associate Application Developer CARDIOVASCULAR DISEASE 04/06/16 12/28/23 Sharmila Davis APRN, GRINDER SETUP OPERATOR-C 619 [facility] 4P57 [place] [address] NURSE PRACTITIONER 01/04/17 04/03/24 Linda Block MD 619 [facility] 4P57 [place] [address] [place] Associate Application Developer CLINICAL CARDIAC ELECTROPHYSIOLOGY 02/08/17 04/12/23 documented as of this encounter
--- OUTSIDE RECORDS SUMMARY | 2024-09-03 20:49 | XMS_ITS | Encounter Summary ---
Author Organization [facility] Address [address] [place] [address]. [place] [address] [place] [address] Care Team Providers Care Bobbin Winder Name Role Phone Piyush Pandey MD Unavailable Unavailabl Megan Leos MD Primary Care Provider [phone] Sharmila Davis APRN ENGINEER SECOND ASSISTANT-C Unavailable Linda Block MD Unavailable [phone] Encounter Details Date Type Department Care Team (Late st Contact Info) Description 10/01/2000 Abstract SFL CONVERSION [address] [place] [address] , Generic MD Nikhil Social [...] st Contact Info) Description 09/25/2024 2:00 PM BREWING TECHNICIAN Appointment [facility] [address] [place] [address] Zayra Powell, STAVE CUTTER [address] [place] [address] 10/16/2024 3:30 PM BREWING TECHNICIAN Office Visit [facility] [address] [place] [phone] Brit Gonzáles MD [address] [place] [address] documented as of this encounter Visit Diagnoses Not on filedocumented in this encounter Care Teams Bobbin Winder Relationship Specialty Start Date End Date Megan Infante MD [address] [facility] [place] [address] PCP - General FAMILY PRACTICE 04/06/16 Piyush Pandey MD [place] Sap Director CARDIOVASCULAR DISEASE 04/06/16 12/28/23 Sharmila Davis APRN, ENGINEER SECOND ASSISTANT-C 619 [facility] [address]P57 [place] [address] NURSE PRACTITIONER 01/04/17 04/03/24 Linda Block MD 619 [facility] [address]P57 [place] [address] Equality Sap Director CLINICAL CARDIAC ELECTROPHYSIOLOGY 02/08/17 04/12/23 documented as of this encounter
--- OUTSIDE RECORDS SUMMARY | 2024-09-03 20:49 | XMS_ITS | Encounter Summary ---
Author Organization [facility] Address [address] [place] [address]. [place] [address] [place] [address] Care Team Providers Care Balance Engineer Name Role Phone Piyush Pandey MD Unavailable Unavailabl Megan Leos MD Primary Care Provider [phone] Sharmila Davis APRN, MACHINE WORKER-C Unavailable Linda Block MD Unavailable [phone] Encounter Details Date Type Department Care Team (Late st Contact Info) Description 10/12/1999 Abstract SFL CONVERSION [address] [place] [address] , Generic MD Nikhil Social [...] st Contact Info) Description 09/25/2024 2:00 PM LAUNDRY PRICING CLERK Appointment [facility] [address] [place] [address] Zayra Powell, TANK CARPENTER [address] [place] [address] 10/16/2024 3:30 PM LAUNDRY PRICING CLERK Office Visit [facility] [address] [place] [address] Brit Gonzáles MD [address] [place] [address] documented as of this encounter Visit Diagnoses Not on filedocumented in this encounter Care Teams Balance Engineer Relationship Specialty Start Date End Date Megan Infante MD [address] [facility] [place] [address] PCP - General FAMILY PRACTICE 04/06/16 Piyush Pandey MD [place] Director Geothermal Operations CARDIOVASCULAR DISEASE 04/06/16 12/28/23 Sharmila Davis APRN, MACHINE WORKER-C 619 [facility] [address]P57 [place] [address] NURSE PRACTITIONER 01/04/17 04/03/24 Linda Block MD 619 [facility] [address]P57 [place] [address] [place] Director Geothermal Operations CLINICAL CARDIAC ELECTROPHYSIOLOGY 02/08/17 04/12/23 documented as of this encounter
--- OUTSIDE RECORDS SUMMARY | 2024-09-03 20:49 | XMS_ITS | Encounter Summary ---
Author Organization [facility] Address [address] [place] [address]. [place] [address] [place] [address] Care Team Providers Care Meter Inspector Name Role Phone Piyush Pandey MD Unavailable Unavailabl e Megan Infante MD Primary Care Provider [phone] Sharmila Davis APRN, RESOURCE MANAGER FORESTER-C Unavailable Linda Block MD Unavailable [phone] Encounter Details Date Type Department Care Team (Late st Contact Info) Description 07/24/1998 Abstract SJS CONVERSION [address] [place], [place] [id number] , Generic ConversionMD Social History Tobacco Use [...] Contact Info) Description 09/25/2024 2:00 PM WEB MARKETING SPECIALIST Appointment [facility] [address] [place] [address] Zayra Powell, KINESIOTHERAPIST [address] [place] [address] 10/16/2024 3:30 PM WEB MARKETING SPECIALIST Office Visit [facility] [address] [place] [phone] Brit Gonzáles MD [address] [place] [address] documented as of this encounter Visit Diagnoses Not on filedocumented in this encounter Care Teams Meter Inspector Relationship Specialty Start Date End Date Megan Infante MD [address] [facility] [place] [address] PCP - General FAMILY PRACTICE 04/06/16 Piyush Pandey MD [place] Drugless Doctor CARDIOVASCULAR DISEASE 04/06/16 12/28/23 Sharmila Davis APRN, RESOURCE MANAGER FORESTER-C 619 [facility] [address]P57 [place] [address] NURSE PRACTITIONER 01/04/17 04/03/24 Linda Block MD 619 [facility] [address] [place] [address] [place] Drugless Doctor CLINICAL CARDIAC ELECTROPHYSIOLOGY 02/08/17 04/12/23 documented as of this encounter
--- OUTSIDE RECORDS SUMMARY | 2024-09-03 20:49 | XMS_ITS | Encounter Summary ---
Author Organization [facility] Address [address] [place] [address]. [place] [address] [place] [address] Care Team Providers Care Miner Name Role Phone Piyush Pandey MD Unavailable Unavailabl Megan Leos MD Primary Care Provider [phone] Sharmila Davis APRN, HUNTING SALES LEADER-C Unavailable Linda Block MD Unavailable [phone] Encounter Details Date Type Department Care Team (Late st Contact Info) Description 01/17/1999 Abstract SFL CONVERSION [address] [place] [address] , Generic MD Nikhil Social [...] Contact Info) Description 09/25/2024 2:00 PM CLINICAL THERAPIST Appointment [facility] [address] [place] [address] Zayra Powell, BRIM WELT SEWING MACHINE OPERATOR [address] [place] [address] 10/16/2024 3:30 PM CLINICAL THERAPIST Office Visit [facility] [address] [place] [address] Brit Gonzáles MD [address] [place] [address] documented as of this encounter Visit Diagnoses Not on filedocumented in this encounter Care Teams Miner Relationship Specialty Start Date End Date Megan Infante MD [address] [facility] [place] [address] PCP - General FAMILY PRACTICE 04/06/16 Piyush Pandey MD [place] Restaurant Cook CARDIOVASCULAR DISEASE 04/06/16 12/28/23 Sharmila Davis APRN, HUNTING SALES LEADER-C 619 [facility] 4P57 [place] [address] NURSE PRACTITIONER 01/04/17 04/03/24 Linda Block MD 619 [facility] [address] [place] [address] [place] Restaurant Cook CLINICAL CARDIAC ELECTROPHYSIOLOGY 02/08/17 04/12/23 documented as of this encounter
--- OUTSIDE RECORDS SUMMARY | 2024-09-03 20:49 | XMS_ITS | Encounter Summary ---
Author Organization [facility] Address [address] [place] [address]. [place] [address] [place] [address] Care Team Providers Care Applied Science [employer] Technologies Dean Name Role Phone Piyush Pandey MD Unavailable Unavailabl Megan Leos MD Primary Care Provider [phone] Sharmila Davis APRN, ANCIENT ART CURATOR-C Unavailable Linda Block MD Unavailable [phone] Encounter Details Date Type Department Care Team (Late st Contact Info) Description 05/27/2000 Abstract SFL CONVERSION [address] [place] [address] , Generic MD Nikhil Social [...] st Contact Info) Description 09/25/2024 2:00 PM LEAN MANAGER Appointment [facility] [address] [place] [address] Zayra Powell, MINE INSPECTOR FEDERAL [address] [place] [address] 10/16/2024 3:30 PM LEAN MANAGER Office Visit [facility] [address] [place] [address] Brit Gonzáles MD [address] [place] [address] documented as of this encounter Visit Diagnoses Not on filedocumented in this encounter Care Teams [employer] Dean Relationship Specialty Start Date End Date Megan Infante MD [address] [facility] [place] [address] PCP - General FAMILY PRACTICE 04/06/16 Piyush Pandey MD Wall Restaurant Crew CARDIOVASCULAR DISEASE 04/06/16 12/28/23 Sharmila Davis APRN, ANCIENT ART CURATOR-C 619 [facility] [address]P57 [place] [address] NURSE PRACTITIONER 01/04/17 04/03/24 Linda Block MD 619 [facility] 4P57 [place] [address] Wall Restaurant Crew CLINICAL CARDIAC ELECTROPHYSIOLOGY 02/08/17 04/12/23 documented as of this encounter
--- OUTSIDE RECORDS SUMMARY | 2024-09-03 20:49 | XMS_ITS | Encounter Summary ---
Author Organization [facility] Address [address] [place] [address]. [place] [address] [place] [address] Care Team Providers Care Hull Inspector Name Role Phone Piyush Pandey MD Unavailable Unavailabl Megan Leos MD Primary Care Provider [phone] Sharmila Davis APRN, TOMATO PULPER OPERATOR-C Unavailable [phone] Linda Block MD Unavailable [phone] Encounter Details Date Type Department Care Team (Late st Contact Info) Description 09/21/1997 Abstract SFL CONVERSION [address] [place] [address] , Generic MD Nikhil Social [...] st Contact Info) Description 09/25/2024 2:00 PM FOREST BOTANY INSTRUCTOR Appointment [facility] [address] [place] [address] Zayra Powell, MARKING DEVICES ASSEMBLER [address] [place] [address] 10/16/2024 3:30 PM FOREST BOTANY INSTRUCTOR Office Visit [facility] [address] [place] [phone] Brit Gonzáles MD [address] [place] [address] documented as of this encounter Visit Diagnoses Not on filedocumented in this encounter Care Teams Hull Inspector Relationship Specialty Start Date End Date Megan Infante MD [address] [facility] [place] [address] PCP - General FAMILY PRACTICE 04/06/16 Piyush Pandey MD [place] Guest Relation Officer CARDIOVASCULAR DISEASE 04/06/16 12/28/23 Sharmila Davis APRN, TOMATO PULPER OPERATOR-C 619 [facility] [address]P57 [place] [address] NURSE PRACTITIONER 01/04/17 04/03/24 Linda Block MD 619 [facility] [address] [place] [address] [place] Guest Relation Officer CLINICAL CARDIAC ELECTROPHYSIOLOGY 02/08/17 04/12/23 documented as of this encounter
--- OUTSIDE RECORDS SUMMARY | 2024-09-03 20:49 | XMS_ITS | Encounter Summary ---
Author Organization [facility] Address [address] [place] [address]. [place] [address] [place] [address] Care Team Providers Care Master Electrician Name Role Phone Piyush Pandey MD Unavailable Unavailabl Megan Leos MD Primary Care Provider [phone] Sharmila Davis APRN, COMPUTING SERVICES DIRECTOR-C Unavailable Linda Block MD Unavailable [phone] Encounter Details Date Type Department Care Team (Late st Contact Info) Description 06/18/2000 Abstract SFL CONVERSION [address] [place] [address] , Generic MD Nikhil Social [...] Contact Info) Description 09/25/2024 2:00 PM GENERAL NEUROLOGIST Appointment [facility] [address] [place] [address] Zayra Powell, FLOOR CLERK [address] [place] [address] 10/16/2024 3:30 PM GENERAL NEUROLOGIST Office Visit [facility] [address] [place] [phone] Brit Gonzáles MD [address] [place] [address] documented as of this encounter Visit Diagnoses Not on filedocumented in this encounter Care Teams Master Electrician Relationship Specialty Start Date End Date Megan Infante MD [address] [facility] [place] [address] PCP - General FAMILY PRACTICE 04/06/16 Piyush Pandey MD [place] Ep Specialist CARDIOVASCULAR DISEASE 04/06/16 12/28/23 Sharmila Davis APRN, COMPUTING SERVICES DIRECTOR-C 619 [facility] [address]P57 [place] [address] NURSE PRACTITIONER 01/04/17 04/03/24 Linda Block MD 619 [facility] [address]P57 [place] [address] [place] Ep Specialist CLINICAL CARDIAC ELECTROPHYSIOLOGY 02/08/17 04/12/23 documented as of this encounter
--- OUTSIDE RECORDS SUMMARY | 2024-09-03 20:49 | XMS_ITS | Encounter Summary ---
Author Organization [facility] Address [address] [place] [address]. [place] [address] [place] [address] Care Team Providers Care Waiter And Cashier Name Role Phone Piyush Pandey MD Unavailable Unavailabl Megan Leos MD Primary Care Provider [phone] Sharmila Davis APRN, BIOMASS PLANT TECHNICIAN-C Unavailable Linda Block MD Unavailable [phone] Encounter Details Date Type Department Care Team (Late st Contact Info) Description 12/04/1999 Abstract SFL CONVERSION [address] [place] [address] , Generic MD Nikhil Social [...] st Contact Info) Description 09/25/2024 2:00 PM GREENHOUSE INSTRUCTOR Appointment [facility] [address] [place] [address] Zayra Powell, SAP GATHERER [address] [place] [address] 10/16/2024 3:30 PM GREENHOUSE INSTRUCTOR Office Visit [facility] [address] [place] [address] Brit Gonzáles MD [address] [place] [address] documented as of this encounter Visit Diagnoses Not on filedocumented in this encounter Care Teams Waiter And Cashier Relationship Specialty Start Date End Date Megan Infante MD [address] [facility] [place] [address] PCP - General FAMILY PRACTICE 04/06/16 Piyush Pandey MD [place] Supervisor CARDIOVASCULAR DISEASE 04/06/16 12/28/23 Sharmila Davis APRN, BIOMASS PLANT TECHNICIAN-C 619 [facility] [address] [place] [address] NURSE PRACTITIONER 01/04/17 04/03/24 Linda Block MD 619 [facility] [address] [place] [address] [place] Supervisor CLINICAL CARDIAC ELECTROPHYSIOLOGY 02/08/17 04/12/23 documented as of this encounter
--- OUTSIDE RECORDS SUMMARY | 2024-09-03 20:49 | XMS_ITS | Encounter Summary ---
Author Organization [facility] Address [address] [place] [address]. [place] [address] [place] [address] Care Team Providers Care Pull Out Operator Name Role Phone Piyush Pandey MD Unavailable Unavailabl Megan Leos MD Primary Care Provider [phone] Sharmila Davis APRN, HVAC SPECIALIST-C Unavailable [phone] Linda Block MD Unavailable [phone] Encounter Details Date Type Department Care Team (Late st Contact Info) Description 11/02/1997 Abstract SFL CONVERSION [address] [place] [address] , Generic MD Nikhil Social [...] st Contact Info) Description 09/25/2024 2:00 PM MECHANICAL ENGINEERING COOP Appointment [facility] [address] [place] [address] Zayra Powell, ROUNDSMAN [address] [place] [address] 10/16/2024 3:30 PM MECHANICAL ENGINEERING COOP Office Visit [facility] [address] [place] [phone] Brit Gonzáles MD [address] [place] [address] documented as of this encounter Visit Diagnoses Not on filedocumented in this encounter Care Teams Pull Out Operator Relationship Specialty Start Date End Date Megan Infante MD [address] [facility] [place] [address] PCP - General FAMILY PRACTICE 04/06/16 Piyush Pandey MD [place] Lumber Inspector CARDIOVASCULAR DISEASE 04/06/16 12/28/23 Sharmila Davis APRN, HVAC SPECIALIST-C 619 [facility] [address] [place] [address] NURSE PRACTITIONER 01/04/17 04/03/24 Linda Block MD 619 [facility] [address] [place] [address] [place] Lumber Inspector CLINICAL CARDIAC ELECTROPHYSIOLOGY 02/08/17 04/12/23 documented as of this encounter
--- OUTSIDE RECORDS SUMMARY | 2024-09-03 20:49 | XMS_ITS | Encounter Summary ---
Author Organization [facility] Address [address] [place] [address]. [place] [address] [place] [address] Care Team Providers Care Security Flex Officer Name Role Phone Piyush Pandey MD Unavailable Unavailabl Meagn Leos MD Primary Care Provider [phone] Sharmila Davis APRN, BLAST FURNACE KEEPER HELPER-C Unavailable Linda Block MD Unavailable [phone] Encounter Details Date Type Department Care Team (Late st Contact Info) Description 12/29/1999 Abstract SFL CONVERSION [address] [place] [address] , Generic MD Nikhil Social [...] st Contact Info) Description 09/25/2024 2:00 PM STRIKE OUT MACHINE OPERATOR Appointment [facility] [address] [place] [address] Zayra Powell, AUTOMOTIVE MANAGER [address] [place] [address] 10/16/2024 3:30 PM STRIKE OUT MACHINE OPERATOR Office Visit [facility] [address] [place] [address] Brit Gonzáles MD [address] [place] [address] documented as of this encounter Visit Diagnoses Not on filedocumented in this encounter Care Teams Security Flex Officer Relationship Specialty Start Date End Date Megan Infante MD [address] [facility] [place] [address] PCP - General FAMILY PRACTICE 04/06/16 Piyush Pandey MD [place] Washing And Screening Plant Supervisor CARDIOVASCULAR DISEASE 04/06/16 12/28/23 Sharmila Davis APRN, BLAST FURNACE KEEPER HELPER-C 6[address] [facility] [address]57 [place] [address] NURSE PRACTITIONER 01/04/17 04/03/24 Linda Block MD 6[address] [facility] [address] [place] [address] [place] Washing And Screening Plant Supervisor CLINICAL CARDIAC ELECTROPHYSIOLOGY 02/08/17 04/12/23 documented as of this encounter
--- OUTSIDE RECORDS SUMMARY | 2024-09-03 20:49 | XMS_ITS | Encounter Summary ---
Author Organization [facility] Address [address] [place] [address]. [place] [address] [place] [address] Care Team Providers Care Sanitation Truck Cleaner Name Role Phone Piyush Pandey MD Unavailable Unavailabl Mgean Leos MD Primary Care Provider [phone] Sharmila Davis APRN, RECEIPT AND REPORT CLERK-C Unavailable Linda Block MD Unavailable [phone] Encounter Details Date Type Department Care Team (Late st Contact Info) Description 06/30/2000 Abstract SFL CONVERSION [address] [place] [address] , Generic MD Nikhil Social [...] Contact Info) Description 09/25/2024 2:00 PM BARREL ENDSHAKE ADJUSTER Appointment [facility] [address] [place] [address] Zayra Powell, CUSTOMER SALES DISTRIBUTOR [address] [place] [address] 10/16/2024 3:30 PM BARREL ENDSHAKE ADJUSTER Office Visit [facility] [address] [place] [address] Brit Gonzáles MD [address] [place] [address] documented as of this encounter Visit Diagnoses Not on filedocumented in this encounter Care Teams Sanitation Truck Cleaner Relationship Specialty Start Date End Date Megan Infante MD [address] [facility] [place] [address] PCP - General FAMILY PRACTICE 04/06/16 Piyush Pandey MD [place] Forensic Ballistics Expert CARDIOVASCULAR DISEASE 04/06/16 12/28/23 Sharmila Davis APRN, RECEIPT AND REPORT CLERK-C 619 [facility] [address] [place] [address] NURSE PRACTITIONER 01/04/17 04/03/24 Linda Block MD 6[address] [facility] [address] [place] [address] [place] Forensic Ballistics Expert CLINICAL CARDIAC ELECTROPHYSIOLOGY 02/08/17 04/12/23 documented as of this encounter
--- OUTSIDE RECORDS SUMMARY | 2024-09-03 20:49 | XMS_ITS | Encounter Summary ---
Author Organization [facility] Address [address] [place] [address]. [place] [address] [place] [address] Care Team Providers Care Seed Cleaning Machine Operator Name Role Phone Piyush Pandey MD Unavailable Unavailabl Megan Leos MD Primary Care Provider [phone] Sharmila Davis APRN, MILL HAND PLATE MILL-C Unavailable [phone] Linda Block MD Unavailable [phone] Encounter Details Date Type Department Care Team (Late st Contact Info) Description 12/22/1999 Abstract SFL CONVERSION [address] [place] [address] , Generic MD Nikhil Social [...] st Contact Info) Description 09/25/2024 2:00 PM ITEM PROCESSOR Appointment [facility] [address] [place] [address] Zayra Powell, VICE PRESIDENT OF ADVERTISING [address] [place] [address] 10/16/2024 3:30 PM ITEM PROCESSOR Office Visit [facility] [address] [place] [phone] Brit Gonzáles MD [address] [place] [address] documented as of this encounter Visit Diagnoses Not on filedocumented in this encounter Care Teams Seed Cleaning Machine Operator Relationship Specialty Start Date End Date Megan Infante MD [address] [facility] [place] [address] PCP - General FAMILY PRACTICE 04/06/16 Piyush Pandey MD [place] Wharf Laborer CARDIOVASCULAR DISEASE 04/06/16 12/28/23 Sharmila Davis APRN, MILL HAND PLATE MILL-C 619 [facility] [address] [place] [address] NURSE PRACTITIONER 01/04/17 04/03/24 Linda Block MD [address] [facility] [address] [place] [address] [place] Wharf Laborer CLINICAL CARDIAC ELECTROPHYSIOLOGY 02/08/17 04/12/23 documented as of this encounter
--- OUTSIDE RECORDS SUMMARY | 2024-09-03 20:49 | XMS_ITS | Encounter Summary ---
Author Organization [facility] Address [address] [place] [address]. [place] [address] [place] [address] Care Team Providers Care Stenotype Operator Name Role Phone Piyush Pandey MD Unavailable Unavailabl Megan Leos MD Primary Care Provider [phone] Sharmila Davis APRN, HARBOUR MASTER-C Unavailable Linda Block MD Unavailable [phone] Encounter Details Date Type Department Care Team (Late st Contact Info) Description 03/03/2000 Abstract SFL CONVERSION [address] [place], [...] st Contact Info) Description 09/25/2024 2:00 PM CHRONOMETER ASSEMBLER Appointment [facility] [address] [place] [address] Zayra Powell, INSTRUMENT WORKER [address] [place] [address] 10/16/2024 3:30 PM CHRONOMETER ASSEMBLER Office Visit [facility] [address] [place] [phone] Brit Gonzáles MD [address] [place] [address] documented as of this encounter Visit Diagnoses Not on filedocumented in this encounter Care Teams Stenotype Operator Relationship Specialty Start Date End Date Megan Infante MD [address] [facility] [place] [address] PCP - General FAMILY PRACTICE 04/06/16 Piyush Pandey MD [place] Operations Supervisor 2Nd Shift CARDIOVASCULAR DISEASE 04/06/16 12/28/23 Sharmila Davis APRN, HARBOUR MASTER-C [address] [facility] [address] [place] [address] NURSE PRACTITIONER 01/04/17 04/03/24 Linda Block MD 6[address] [facility] [address] [place] [address] [place] Operations Supervisor 2Nd Shift CLINICAL CARDIAC ELECTROPHYSIOLOGY 02/08/17 04/12/23 documented as of this encounter
--- OUTSIDE RECORDS SUMMARY | 2024-09-03 20:49 | XMS_ITS | Encounter Summary ---
Author Organization [facility] Address [facility] [place] [place] [address] [place] [address] Care Team Providers Care Food Selector Name Role Phone Piyush Pandey MD Unavailable Unavailabl e Megan Infante MD Primary Care Provider [phone] Sharmila Davis APRN, TECHNOLOGY SALES CONSULTANT-C Unavailable Linda Block MD Unavailable [phone] Encounter Details Date Type Department Care Team (Late st Contact Info) Description 12/08/1999 Abstract SJS CONVERSION [address] [place] [address] Social History Tobacco Use Types [...] st Contact Info) Description 09/25/2024 2:00 PM JEWEL FLAT SURFACER Appointment [facility] [address] [place] [address] Zayra Powell, BLACK MILL OPERATOR [address] [place] [address] 10/16/2024 3:30 PM JEWEL FLAT SURFACER Office Visit [facility] [address] [place] [phone] Brit Gonzáles MD 619 [place] [address] documented as of this encounter Visit Diagnoses Not on filedocumented in this encounter Care Teams Food Selector Relationship Specialty Start Date End Date Megan Infante MD [address] [facility] [place] [address] PCP - General FAMILY PRACTICE 04/06/16 Piyush Pandey MD [place] Lead Rider CARDIOVASCULAR DISEASE 04/06/16 12/28/23 Sharmila Davis, CLAY ROASTER, TECHNOLOGY SALES CONSULTANT-C [address] [facility] [address] [place] [address] NURSE PRACTITIONER 01/04/17 04/03/24 Linda Block MD [address] [place] [facility] [address] [place] [address] [place] Lead Rider CLINICAL CARDIAC ELECTROPHYSIOLOGY 02/08/17 04/12/23 documented as of this encounter
--- OUTSIDE RECORDS SUMMARY | 2024-09-03 20:49 | XMS_ITS | Encounter Summary ---
Author Organization [facility] Address [address] [place] [address]. [place] [address] [place] [address] Care Team Providers Care Radiographer Angiogram Name Role Phone Piyush Pandey MD Unavailable Unavailabl Megan Leos MD Primary Care Provider [phone] Sharmila Davis APRN, ENVIRONMENTAL FIELD SERVICES TECHNICIAN-C Unavailable [phone] Linda Block MD Unavailable [phone] Encounter Details Date Type Department Care Team (Late st Contact Info) Description 01/23/2000 Abstract SFL CONVERSION [address] [place] [address] , Generic MD Nikhil Social [...] st Contact Info) Description 09/25/2024 2:00 PM FAST FOOD COOK Appointment [facility] [address] [place] [address] Zayra Powell, MATERIAL HAULER [address] [place] [address] 10/16/2024 3:30 PM FAST FOOD COOK Office Visit [facility] [address] [place] [address] Brit Gonzáles MD [address] [place] [address] documented as of this encounter Visit Diagnoses Not on filedocumented in this encounter Care Teams Radiographer Angiogram Relationship Specialty Start Date End Date Megna Infante MD [address] [facility] [place] [address] PCP - General FAMILY PRACTICE 04/06/16 Piyush Pandey MD [place] Hoop Riveting Machine Operator CARDIOVASCULAR DISEASE 04/06/16 12/28/23 Sharmila Davis APRN, ENVIRONMENTAL FIELD SERVICES TECHNICIAN-C 619 [facility] [address] [place] [address] NURSE PRACTITIONER 01/04/17 04/03/24 Linda Block MD 619 [facility] [address] [place] [address] [place] Hoop Riveting Machine Operator CLINICAL CARDIAC ELECTROPHYSIOLOGY 02/08/17 04/12/23 documented as of this encounter
--- OUTSIDE RECORDS SUMMARY | 2024-09-03 20:49 | XMS_ITS | Encounter Summary ---
Author Organization [facility] Address [address] [address]. [place] [address] [place] [address] Care Team Providers Care Sheet Metal Duct Installer Helper Name Role Phone Piyush Pandey MD Unavailable Unavailabl Megan Leos MD Primary Care Provider [phone] Sharmila Davis APRN PATTERN PUNCHER-C Unavailable [phone] Linda Block MD Unavailable [phone] Encounter Details Date Type Department Care Team (Late st Contact Info) Description 01/05/1995 Abstract SFL CONVERSION [address] [place] [address] , Generic MD Nikhil Social [...] st Contact Info) Description 09/25/2024 2:00 PM PECAN GROWER Appointment [facility] [address] [place] [address] Zayra Powell, CATTLE INSPECTOR [address] [place] [address] 10/16/2024 3:30 PM PECAN GROWER Office Visit [facility] [address] [place] [address] Brit Gonzáles MD [address] [place] [address] documented as of this encounter Visit Diagnoses Not on filedocumented in this encounter Care Teams Sheet Metal Duct Installer Helper Relationship Specialty Start Date End Date Megan Infante MD [address] [facility] [place] [address] PCP - General FAMILY PRACTICE 04/06/16 Piyush Pandey MD [place] Carpenter Foreman CARDIOVASCULAR DISEASE 04/06/16 12/28/23 Sharmila Davis APRN, PATTERN PUNCHER-C [address] [facility] [address] [place] [address] NURSE PRACTITIONER 01/04/17 04/03/24 Linda Block MD 619 [facility] [address] [place] [address] [place] Carpenter Foreman CLINICAL CARDIAC ELECTROPHYSIOLOGY 02/08/17 04/12/23 documented as of this encounter
--- OUTSIDE RECORDS SUMMARY | 2024-09-03 20:49 | XMS_ITS | Encounter Summary ---
Author Organization [facility] Address [address] [place] [address]. [place] [address] [place] [address] Care Team Providers Care Yarn Hauler Name Role Phone Piyush Pandey MD Unavailable Unavailabl Megan Leos MD Primary Care Provider [phone] Sharmila Davis APRN HOT PLATE PRESS OPERATOR-C Unavailable Linda Block MD Unavailable [phone] Encounter Details Date Type Department Care Team (Late st Contact Info) Description 10/08/1998 Abstract SFL CONVERSION [address] [place] [address] , Generic MD Nikhil [...] Contact Info) Description 09/25/2024 2:00 PM BOTTLE CASER Appointment [facility] [address] [place] [address] Zayra Powell, HEALTH SPECIALIST [address] [place] [address] 10/16/2024 3:30 PM BOTTLE CASER Office Visit [facility] [address] [place] [address] Brit Gonzáles MD [address] [place] [address] documented as of this encounter Visit Diagnoses Not on filedocumented in this encounter Care Teams Yarn Hauler Relationship Specialty Start Date End Date Megan Infante MD [address] [facility] [place] [address] PCP - General FAMILY PRACTICE 04/06/16 Piyush Pandey MD [place] Splitter CARDIOVASCULAR DISEASE 04/06/16 12/28/23 Sharmila Davis APRN, HOT PLATE PRESS OPERATOR-C 619 [facility] [address] [place] [address] NURSE PRACTITIONER 01/04/17 04/03/24 Linda Block MD 619 [facility] [address] [place] [address] [place] Splitter CLINICAL CARDIAC ELECTROPHYSIOLOGY 02/08/17 04/12/23 documented as of this encounter
--- OUTSIDE RECORDS SUMMARY | 2024-09-03 20:49 | XMS_ITS | Encounter Summary ---
Author Organization [facility] Address [address] [place] [address]. [place] [address] [place] [address] Care Team Providers Care Street And Building Decorator Name Role Phone Piyush Pandey MD Unavailable Unavailabl Megan Leos MD Primary Care Provider [phone] Sharmila Davis APRN DISHING MACHINE OPERATOR-C Unavailable Linda Block MD Unavailable [phone] Encounter Details Date Type Department Care Team (Late st Contact Info) Description 01/07/2000 Abstract SFL CONVERSION [address] [place] [address] , Generic MD Nikhil Social [...] Contact Info) Description 09/25/2024 2:00 PM FIELD NATURALIST Appointment [facility] [address] [place] [address] Zayra Powell, SCREEN EXAMINER [address] [place] [address] 10/16/2024 3:30 PM FIELD NATURALIST Office Visit [facility] [address] [place] [address] Brit Gonzáles MD [address] [place] [address] documented as of this encounter Visit Diagnoses Not on filedocumented in this encounter Care Teams Street And Building Decorator Relationship Specialty Start Date End Date Megan Infante MD [address] [facility] [place] [address] PCP - General FAMILY PRACTICE 04/06/16 Piyush Pandey MD [place] Alligator Hunter CARDIOVASCULAR DISEASE 04/06/16 12/28/23 Sharmila Davis APRN, DISHING MACHINE OPERATOR-C 619 [facility] [address] [place] [address] NURSE PRACTITIONER 01/04/17 04/03/24 Linda Block MD 619 [facility] [address] [place] [address] [place] Alligator Hunter CLINICAL CARDIAC ELECTROPHYSIOLOGY 02/08/17 04/12/23 documented as of this encounter
--- OUTSIDE RECORDS SUMMARY | 2024-09-03 20:49 | XMS_ITS | Encounter Summary ---
Author Organization [facility] Address [address] [place] [address]. [place] [address] [place] [address] Care Team Providers Care Sprinkler Worker Name Role Phone Piyush Pandey MD Unavailable Unavailabl Megan Leos MD Primary Care Provider [phone] Sharmila Davis APRN, TRACK LAYING SUPERVISOR-C Unavailable Linda Block MD Unavailable [phone] Encounter Details Date Type Department Care Team (Late st Contact Info) Description 12/14/1995 Abstract SFL CONVERSION [address] [place] [address] , Generic MD Nikhil Social [...] st Contact Info) Description 09/25/2024 2:00 PM DESK MAKER Appointment [facility] [address] [place] [address] Zayra Powell, FIELD SUPPORT REPRESENTATIVE [address] [place] [address] 10/16/2024 3:30 PM DESK MAKER Office Visit [facility] [address] [place] [address] Brit Gonzáles MD [address] [place] [address] documented as of this encounter Visit Diagnoses Not on filedocumented in this encounter Care Teams Sprinkler Worker Relationship Specialty Start Date End Date Megan Infante MD [address] [facility] [place] [address] PCP - General FAMILY PRACTICE 04/06/16 Piyush Pandey MD [place] Sales And Events Coordinator CARDIOVASCULAR DISEASE 04/06/16 12/28/23 Sharmila Davis APRN, TRACK LAYING SUPERVISOR-C 619 [facility] [address] [place] [address] NURSE PRACTITIONER 01/04/17 04/03/24 Linda Block MD 619 [facility] [address] [place] [address] [place] Sales And Events Coordinator CLINICAL CARDIAC ELECTROPHYSIOLOGY 02/08/17 04/12/23 documented as of this encounter
--- OUTSIDE RECORDS SUMMARY | 2024-09-03 20:49 | XMS_ITS | Encounter Summary ---
Author Organization [facility] Address [address] [place] [address]. [place] [address] [place] [address] Care Team Providers Care Minute Clerk For Basic Traffic Name Role Phone Piyush Pandey MD Unavailable Unavailabl Megan Leos MD Primary Care Provider [phone] Sharmila Davis APRN NET DEVELOPER CONTRACT-C Unavailable Linda Block MD Unavailable [phone] Encounter Details Date Type Department Care Team (Late st Contact Info) Description 12/07/1997 Abstract SFL CONVERSION [address] [place] [address] , Generic MD Nikhil Social [...] st Contact Info) Description 09/25/2024 2:00 PM REGRINDER OPERATOR Appointment [facility] [address] [place] [address] Zayra Powell, HELP DESK ASSOCIATE [address] [place] [address] 10/16/2024 3:30 PM REGRINDER OPERATOR Office Visit [facility] [address] [place] [address] Brit Gonzáles MD [address] [place] [address] documented as of this encounter Visit Diagnoses Not on filedocumented in this encounter Care Teams Minute Clerk For Basic Traffic Relationship Specialty Start Date End Date Megan Infante MD [address] [facility] [place] [address] PCP - General FAMILY PRACTICE 04/06/16 Piyush Pandey MD [place] Manager Lab CARDIOVASCULAR DISEASE 04/06/16 12/28/23 Sharmila Davis APRN, NET DEVELOPER CONTRACT-C 619 [facility] [address] [place] [address] NURSE PRACTITIONER 01/04/17 04/03/24 Linda Block MD 619 [facility] [address] [place] [address] [place] Manager Lab CLINICAL CARDIAC ELECTROPHYSIOLOGY 02/08/17 04/12/23 documented as of this encounter
--- OUTSIDE RECORDS SUMMARY | 2024-09-03 20:49 | XMS_ITS | Encounter Summary ---
Author Organization [facility] Address [address] [place] [address]. [place] [address] [place] [address] Care Team Providers Care Core Composer Machine Tender Name Role Phone Piyush Pandey MD Unavailable Unavailabl Megan Leos MD Primary Care Provider [phone] Sharmila Davis APRN, WOODEN BOX MAKER-C Unavailable Linda Block MD Unavailable [phone] Encounter Details Date Type Department Care Team (Late st Contact Info) Description 02/07/1998 Abstract SFL CONVERSION [address] [place] [address] , Generic MD Nikhil Social [...] Contact Info) Description 09/25/2024 2:00 PM HAND SPRAYER Appointment [facility] [address] [place] [address] Zayra Powell, INTERNAL REVENUE AGENT [address] [place] [address] 10/16/2024 3:30 PM HAND SPRAYER Office Visit [facility] [address] [place] [address] Brit Gonzáles MD [address] [place] [address] documented as of this encounter Visit Diagnoses Not on filedocumented in this encounter Care Teams Core Composer Machine Tender Relationship Specialty Start Date End Date Megan Infante MD [address] [facility] [place] [address] PCP - General FAMILY PRACTICE 04/06/16 Piyush Pandey MD [place] Liquid Loader CARDIOVASCULAR DISEASE 04/06/16 12/28/23 Sharmila Davis APRN, WOODEN BOX MAKER-C 619 [facility] [address] [place] [address] NURSE PRACTITIONER 01/04/17 04/03/24 Linda Block MD 619 [facility] [address] [place] [address] [place] Liquid Loader CLINICAL CARDIAC ELECTROPHYSIOLOGY 02/08/17 04/12/23 documented as of this encounter
--- OUTSIDE RECORDS SUMMARY | 2024-09-03 20:49 | XMS_ITS | Encounter Summary ---
Author Organization [facility] Address [address] [place] [address]. [place] [address] [place] [address] Care Team Providers Care Dough Catcher Name Role Phone Piyush Pandey MD Unavailable Unavailabl Megan Leos MD Primary Care Provider [phone] Sharmila Davis APRN, GOODYEAR WELTER-C Unavailable [phone] Linda Block MD Unavailable [phone] Encounter Details Date Type Department Care Team (Late st Contact Info) Description 03/24/2000 Abstract SFL CONVERSION [address] [place] [address] , Generic MD Nikhil Social [...] Contact Info) Description 09/25/2024 2:00 PM NUT PICKER Appointment [facility] [address] [place] [address] Zayra Powell, PSYCHOLOGY INTERN [address] [place] [address] 10/16/2024 3:30 PM NUT PICKER Office Visit [facility] [address] [place] [phone] Brit Gonzáles MD [address] [place] [address] documented as of this encounter Visit Diagnoses Not on filedocumented in this encounter Care Teams Dough Catcher Relationship Specialty Start Date End Date Megan Infante MD [address] [facility] [place] [address] PCP - General FAMILY PRACTICE 04/06/16 Piyush Pandey MD [place] Equipment Mechanic Specialist CARDIOVASCULAR DISEASE 04/06/16 12/28/23 Sharmila Davis APRN, GOODYEAR WELTER-C 619 [facility] [address] [place] [address] NURSE PRACTITIONER 01/04/17 04/03/24 Linda Block MD 619 [facility] [address] [place] [address] [place] Equipment Mechanic Specialist CLINICAL CARDIAC ELECTROPHYSIOLOGY 02/08/17 04/12/23 documented as of this encounter
--- OUTSIDE RECORDS SUMMARY | 2024-09-03 20:49 | XMS_ITS | Encounter Summary ---
Author Organization [facility] Address [address] [place] [address]. [place] [address] [place] [address] Care Team Providers Care National Recruiter Name Role Phone Piyush Pandey MD Unavailable Unavailabl Megan Leos MD Primary Care Provider [phone] Sharmila Davis APRN, SITE PROJECT MANAGER-C Unavailable Linda Block MD Unavailable [phone] Encounter Details Date Type Department Care Team (Late st Contact Info) Description 07/02/1998 Abstract SFL CONVERSION [address] [place] [address] , Generic MD Nikhil Social [...] Contact Info) Description 09/25/2024 2:00 PM INSURANCE DEFENSE ATTORNEY Appointment [facility] [address] [place] [address] Zayra Powell, HEALTH LEAD [address] [place] [address] 10/16/2024 3:30 PM INSURANCE DEFENSE ATTORNEY Office Visit [facility] [address] [place] [address] Brit Gonzáles MD [address] [place] [address] documented as of this encounter Visit Diagnoses Not on filedocumented in this encounter Care Teams National Recruiter Relationship Specialty Start Date End Date Megan Infante MD [address] [facility] [place] [address] PCP - General FAMILY PRACTICE 04/06/16 Piyush Pandey MD [place] Traffic Operations Manager CARDIOVASCULAR DISEASE 04/06/16 12/28/23 Sharmila Davis APRN, SITE PROJECT MANAGER-C 6[address] [facility] [address] [place] [address] NURSE PRACTITIONER 01/04/17 04/03/24 Linda Block MD 6[address] [facility] [address] [place] [address] [place] Traffic Operations Manager CLINICAL CARDIAC ELECTROPHYSIOLOGY 02/08/17 04/12/23 documented as of this encounter
--- OUTSIDE RECORDS SUMMARY | 2024-09-03 20:49 | XMS_ITS | Encounter Summary ---
Author Organization [facility] Address [address] [place] [address]. [place] [address] [place] [address] Care Team Providers Care Rod Buster Helper Name Role Phone Piyush Pandey MD Unavailable Unavailabl Megan Leos MD Primary Care Provider [phone] Sharmila Davis APRN CONTRACTING EXECUTIVE-C Unavailable Linda Block MD Unavailable [phone] Encounter Details Date Type Department Care Team (Late st Contact Info) Description 09/07/1997 Abstract SFL CONVERSION [address] [place] [address] , Generic MD Nikhil Social [...] st Contact Info) Description 09/25/2024 2:00 PM INDUSTRIAL FABRIC CUTTER Appointment [facility] [address] [place] [address] Zayra Powell, WOOD GRINDER [address] [place] [address] 10/16/2024 3:30 PM INDUSTRIAL FABRIC CUTTER Office Visit [facility] [address] [place] [address] Brit Gonzáles MD [address] [place] [address] documented as of this encounter Visit Diagnoses Not on filedocumented in this encounter Care Teams Rod Buster Helper Relationship Specialty Start Date End Date Megan Infante MD [address] [facility] [place] [address] PCP - General FAMILY PRACTICE 04/06/16 Piyush Pandey MD [place] [employer] Faculty Member CARDIOVASCULAR DISEASE 04/06/16 12/28/23 Sharmila Davis APRN, CONTRACTING EXECUTIVE-C [address] [facility] [place] [address] [place] [address] NURSE PRACTITIONER 01/04/17 04/03/24 Linda Block MD [address] [facility] [address] [place] [address] [place] [employer] Faculty Member CLINICAL CARDIAC ELECTROPHYSIOLOGY 02/08/17 04/12/23 documented as of this encounter
--- OUTSIDE RECORDS SUMMARY | 2024-09-03 20:49 | XMS_ITS | Encounter Summary ---
Author Organization [facility] Address [address] [place] [address]. [place] [address] [place] [address] Care Team Providers Care Blood Donor Recruiter Supervisor Name Role Phone Piyush Pandey MD Unavailable Unavailabl Megan Leos MD Primary Care Provider [phone] Sharmila Davis APRN, CAMP RECREATION SPECIALIST-C Unavailable Linda Block MD Unavailable [phone] Encounter Details Date Type Department Care Team (Late st Contact Info) Description 02/13/2000 Abstract [facility]FL CONVERSION [address] [place] [address] , Generic MD Nikhil [...] st Contact Info) Description 09/25/2024 2:00 PM BEE PRODUCER Appointment [facility] [address] [place] [address] Zayra Powell, STUDENT ADMISSIONS CLERK [address] [place] [address] 10/16/2024 3:30 PM BEE PRODUCER Office Visit [facility] [address] [place] [phone] Brit Gonzáles MD [address] [place] [address] documented as of this encounter Visit Diagnoses Not on filedocumented in this encounter Care Teams Blood Donor Recruiter Supervisor Relationship Specialty Start Date End Date Megan Infante MD [address] [facility] [place] [address] PCP - General FAMILY PRACTICE 04/06/16 Piyush Pandey MD [place] Oceanographer Physical CARDIOVASCULAR DISEASE 04/06/16 12/28/23 Sharmila Davis APRN, CAMP RECREATION SPECIALIST-C 619 [facility] [address] [place] [address] NURSE PRACTITIONER 01/04/17 04/03/24 Linda Block MD 619 [facility] [address] [place] [address] [place] Oceanographer Physical CLINICAL CARDIAC ELECTROPHYSIOLOGY 02/08/17 04/12/23 documented as of this encounter
--- OUTSIDE RECORDS SUMMARY | 2024-09-03 20:49 | XMS_ITS | Encounter Summary ---
Author Organization [facility] Address [address] [place] [address]. [place] [address] [place] [address] Care Team Providers Care System Software Developer Name Role Phone Piyush Pandey MD Unavailable Unavailabl Megan Leos MD Primary Care Provider [phone] Sharmila Davis APRN, VEGETABLES COOK-C Unavailable [phone] Linda Block MD Unavailable [phone] Encounter Details Date Type Department Care Team (Late st Contact Info) Description 01/30/2000 Abstract [facility]FL CONVERSION [address] [place] [address] , Generic MD Nikhil Social [...] st Contact Info) Description 09/25/2024 2:00 PM ROPING TENDER Appointment [facility] [address] [place] [address] Zayra Powell, TELECOMMUNICATIONS OPERATOR [address] [place] [address] 10/16/2024 3:30 PM ROPING TENDER Office Visit [facility] [address] [place] [address] Brit Gonzáles MD [address] [place] [address] documented as of this encounter Visit Diagnoses Not on filedocumented in this encounter Care Teams System Software Developer Relationship Specialty Start Date End Date Megan Infante MD [address] [facility] [place] [address] PCP - General FAMILY PRACTICE 04/06/16 Piyush Pandey MD [place] [employer] Fixture Repairer CARDIOVASCULAR DISEASE 04/06/16 12/28/23 Sharmila Davis APRN, VEGETABLES COOK-C 619 [facility] [address] [place] [address] NURSE PRACTITIONER 01/04/17 04/03/24 Linda Block MD 619 [facility] [address] [place] [address] [place] [employer] Fi[employer] Repairer CLINICAL CARDIAC ELECTROPHYSIOLOGY 02/08/17 04/12/23 documented as of this encounter
--- OUTSIDE RECORDS SUMMARY | 2024-09-03 20:49 | XMS_ITS | Encounter Summary ---
Author Organization [facility] Address [address] [place] [address]. [place] [address] [place] [address] Care Team Providers Care Cashiers Supervisor Name Role Phone Piyush Pandey MD Unavailable Unavailabl e Megan Infante MD Primary Care Provider [phone] Sharmila Davis APRN, PSYCHOLOGICAL OPERATIONS OFFICER-C Unavailable Linda Block MD Unavailable [phone] Encounter Details Date Type Department Care Team (Late st Contact Info) Description 08/02/1998 Abstract [facility] CONVERSION [address] [place], [place] [id number] , Generic ConversionMD Social History Tobacco Use [...] Contact Info) Description 09/25/2024 2:00 PM WASH TUB MACHINE OPERATOR Appointment [facility] [address] [place] [address] Zayra Powell, MODELING TEACHER [address] [place] [address] 10/16/2024 3:30 PM WASH TUB MACHINE OPERATOR Office Visit [facility] [address] [place] [phone] Brit Gonzáles MD [address] [place] [address] documented as of this encounter Visit Diagnoses Not on filedocumented in this encounter Care Teams Cashiers Supervisor Relationship Specialty Start Date End Date Megan Infante MD [address] [facility] [place] [phone] PCP - General FAMILY PRACTICE 04/06/16 Piyush Pandey MD [place] [employer] Warden CARDIOVASCULAR DISEASE 04/06/16 12/28/23 Sharmila Davis APRN, PSYCHOLOGICAL OPERATIONS OFFICER-C 619 [facility] [address] [place] [address] NURSE PRACTITIONER 01/04/17 04/03/24 Linda Block MD 619 [facility] [address] [place] [address] [place] Prison Warden CLINICAL CARDIAC ELECTROPHYSIOLOGY 02/08/17 04/12/23 documented as of this encounter
--- OUTSIDE RECORDS SUMMARY | 2024-09-03 20:49 | XMS_ITS | Encounter Summary ---
Author Organization [facility] Address [address] [place] [address]. [place] [address] [place] [address] Care Team Providers Care Delivery Tech Name Role Phone Piyush Pandey MD Unavailable Unavailabl Megan Leos MD Primary Care Provider [phone] Sharmila Davis APRN, SENIOR NET WEB DEVELOPER-C Unavailable Linda Block MD Unavailable [phone] Encounter Details Date Type Department Care Team (Late st Contact Info) Description 06/11/1999 Abstract SFL CONVERSION [address] [place] [address] , Generic MD Nikihl Social History Tobacco Use Types Packs/Day Years [...] st Contact Info) Description 09/25/2024 2:00 PM BALANCE SHEET ANALYST Appointment [facility] [address] [place] [address] Zayra Powell, SOFTWARE DESIGN ANALYST [address] [place] [address] 10/16/2024 3:30 PM BALANCE SHEET ANALYST Office Visit [facility] [address] [place] [phone] Brit Gonzáles MD [address] [place] [address] documented as of this encounter Visit Diagnoses Not on filedocumented in this encounter Care Teams Delivery Tech Relationship Specialty Start Date End Date Megan Infante MD [address] [facility] [place] [address] PCP - General FAMILY PRACTICE 04/06/16 Piyush Pandey MD [place] Inspector CARDIOVASCULAR DISEASE 04/06/16 12/28/23 Sharmila Davis APRN, SENIOR NET WEB DEVELOPER-C [address] [facility] [address] [place] [address] NURSE PRACTITIONER 01/04/17 04/03/24 Linda Block MD 619 [facility] [address] [place] [address] [place] Cold [place] Inspector CLINICAL CARDIAC ELECTROPHYSIOLOGY 02/08/17 04/12/23 documented as of this encounter
--- OUTSIDE RECORDS SUMMARY | 2024-09-03 20:49 | XMS_ITS | Encounter Summary ---
Author Organization [facility] Address [address] [place] [address]. [place] [address] [place] [address] Care Team Providers Care Gear Nicker Name Role Phone Piyush Pandey MD Unavailable Unavailabl Megan Leos MD Primary Care Provider [phone] Sharmila Davis APRN, MECHANIC AND WELDER-C Unavailable Linda Block MD Unavailable [phone] Encounter Details Date Type Department Care Team (Late st Contact Info) Description 04/29/2000 Abstract SFL CONVERSION [address] [place] [address] , Generic MD Nikhil Social [...] Contact Info) Description 09/25/2024 2:00 PM CLAIMS COLLECTOR Appointment [facility] [address] [place] [address] Zayra Powell, CONTENT CHECKER [address] [place] [address] 10/16/2024 3:30 PM CLAIMS COLLECTOR Office Visit [facility] [address] [place] [phone] Brit Gonzáles MD [address] [place] [address] documented as of this encounter Visit Diagnoses Not on filedocumented in this encounter Care Teams Gear Nicker Relationship Specialty Start Date End Date Megan Infante MD [address] [facility] [place] [address] PCP - General FAMILY PRACTICE 04/06/16 Piyush Pandey MD [place] Company Driver CARDIOVASCULAR DISEASE 04/06/16 12/28/23 Sharmila Davis APRN, MECHANIC AND WELDER-C 619 [facility] [address] [place] [address] NURSE PRACTITIONER 01/04/17 04/03/24 Linda Block MD 619 [facility] [address] [place] [address] [place] Company Driver CLINICAL CARDIAC ELECTROPHYSIOLOGY 02/08/17 04/12/23 documented as of this encounter
--- OUTSIDE RECORDS SUMMARY | 2024-09-03 20:49 | XMS_ITS | Encounter Summary ---
Author Organization [facility] Address [address] [place] [address]. [place] [address] [place] [address] Care Team Providers Care Motion And Time Study Teacher Name Role Phone Piyush Pandey MD Unavailable Unavailabl Megan Leos MD Primary Care Provider [phone] Sharmila Davis APRN, AIR VALVE MECHANIC-C Unavailable Linda Block MD Unavailable [phone] Encounter Details Date Type Department Care Team (Late st Contact Info) Description 11/10/1999 Abstract SFL CONVERSION [address] [place] [address] , Generic MD Nikhil Social [...] st Contact Info) Description 09/25/2024 2:00 PM TELEVISION RECEIVER ANALYZER Appointment [facility] [address] [place] [address] Zayra Powell, BALANCE WHEEL SCREW HOLE TAPPER [address] [place] [address] 10/16/2024 3:30 PM TELEVISION RECEIVER ANALYZER Office Visit [facility] [address] [place] [address] Brit Gonzáles MD [address] [place] [address] documented as of this encounter Visit Diagnoses Not on filedocumented in this encounter Care Teams Motion And Time Study Teacher Relationship Specialty Start Date End Date Megan Infante MD [address] [facility] [place] [address] PCP - General FAMILY PRACTICE 04/06/16 Piyush Pandey MD [place] [employer] Fabricator CARDIOVASCULAR DISEASE 04/06/16 12/28/23 Sharmila Davis APRN, AIR VALVE MECHANIC-C 619 [facility] [address] [place] [address] NURSE PRACTITIONER 01/04/17 04/03/24 Linda Block MD [address] [facility] [address] [place] [address] [place] [employer] Fabricator CLINICAL CARDIAC ELECTROPHYSIOLOGY 02/08/17 04/12/23 documented as of this encounter
--- OUTSIDE RECORDS SUMMARY | 2024-09-03 20:49 | XMS_ITS | Encounter Summary ---
Author Organization [facility] Address [address] [place] [address]. [place] [address] [place] [address] Care Team Providers Care Overhauler Name Role Phone Piyush Pandey MD Unavailable Unavailabl Megan Leos MD Primary Care Provider [phone] Sharmila Davis APRN BEVEL GEAR GENERATOR OPERATOR-C Unavailable Linda Block MD Unavailable [phone] Encounter Details Date Type Department Care Team (Late st Contact Info) Description 08/01/1997 Abstract SFL CONVERSION [address] [place] [address] , Generic MD Nikhil Social [...] Contact Info) Description 09/25/2024 2:00 PM MECHANICAL INSULATOR Appointment [facility] [address] [place] [address] Zayra Powell, QUALITY ASSURANCE AUDITOR [address] [place] [address] 10/16/2024 3:30 PM MECHANICAL INSULATOR Office Visit [facility] [address] [place] [address] Brit Gonzáles MD [address] [place] [address] documented as of this encounter Visit Diagnoses Not on filedocumented in this encounter Care Teams Overhauler Relationship Specialty Start Date End Date Megan Infante MD [address] [facility] [place] [address] PCP - General FAMILY PRACTICE 04/06/16 Piyush Pandey MD [place] Playground Director CARDIOVASCULAR DISEASE 04/06/16 12/28/23 Sharmila Davis APRN, BEVEL GEAR GENERATOR OPERATOR-C 619 [facility] [address] [place] [address] NURSE PRACTITIONER 01/04/17 04/03/24 Linda Block MD 619 [facility] [address] [place] [address] [place] Playground Director CLINICAL CARDIAC ELECTROPHYSIOLOGY 02/08/17 04/12/23 documented as of this encounter
--- OUTSIDE RECORDS SUMMARY | 2024-09-03 20:49 | XMS_ITS | Encounter Summary ---
Author Organization [facility] Address [address] [place] [address]. [place] [address] [place] [address] Care Team Providers Care Traffic Incident Management Manager Name Role Phone Piyush Pandey MD Unavailable Unavailabl Megan Leos MD Primary Care Provider [phone] Sharmila Davis APRN, HIDE DROPPER-C Unavailable Linda Block MD Unavailable [phone] Encounter Details Date Type Department Care Team (Late st Contact Info) Description 01/16/2000 Abstract SFL CONVERSION [address] [place] [address] , Generic MD Nikhil Social [...] st Contact Info) Description 09/25/2024 2:00 PM ELEMENTARY SECRETARY Appointment [facility] [address] [place] [address] Zayra Powell, LEVEL VIAL SEALER [address] [place] [address] 10/16/2024 3:30 PM ELEMENTARY SECRETARY Office Visit [facility] [address] [place] [phone] Brit Gonzáles MD [address] [place] [address] documented as of this encounter Visit Diagnoses Not on filedocumented in this encounter Care Teams Traffic Incident Management Manager Relationship Specialty Start Date End Date Megan Infante MD [address] [facility] [place] [address] PCP - General FAMILY PRACTICE 04/06/16 Piyush Pandey MD [place] Baggage Handling Supervisor CARDIOVASCULAR DISEASE 04/06/16 12/28/23 Sharmila Davis APRN, HIDE DROPPER-C 619 [facility] [address] [place] [address] NURSE PRACTITIONER 01/04/17 04/03/24 Linda Block MD 619 [facility] [address] [place] [address] [place] Baggage Handling Supervisor CLINICAL CARDIAC ELECTROPHYSIOLOGY 02/08/17 04/12/23 documented as of this encounter
--- OUTSIDE RECORDS SUMMARY | 2024-09-03 20:49 | XMS_ITS | Encounter Summary ---
Author Organization [facility] Address [address] [place] [address]. [place] [address] [place] [address] Care Team Providers Care Lens Engraver Name Role Phone Piyush Pandey MD Unavailable Unavailabl Megan Leos MD Primary Care Provider [phone] Sharmila Davis APRN CREW LEADER/CONTROL ROOM OPERATOR-C Unavailable [phone] Linda Block MD Unavailable [phone] Encounter Details Date Type Department Care Team (Late st Contact Info) Description 09/02/2000 Abstract SFL CONVERSION [address] [place] [address] , Generic MD Nikhil Social [...] st Contact Info) Description 09/25/2024 2:00 PM FIRE ALARM REPAIRER Appointment [facility] [address] [place] [address] Zayra Powell, FAMILY DINNER SERVICE SPECIALIST [address] [place] [address] 10/16/2024 3:30 PM FIRE ALARM REPAIRER Office Visit [facility] [address] [place] [phone] Brit Gonzáles MD [address] [place] [address] documented as of this encounter Visit Diagnoses Not on filedocumented in this encounter Care Teams Lens Engraver Relationship Specialty Start Date End Date Megan Infante MD [address] [facility] [place] [address] PCP - General FAMILY PRACTICE 04/06/16 Piyush Pandey MD [place] [employer] Supervisor CARDIOVASCULAR DISEASE 04/06/16 12/28/23 Sharmila Davis APRN, CREW LEADER/CONTROL ROOM OPERATOR-C 619 [facility] [address] [place] [address] NURSE PRACTITIONER 01/04/17 04/03/24 Linda Block MD 619 [facility] [address] [place] [address] [place] [employer] Manufacturing Supervisor CLINICAL CARDIAC ELECTROPHYSIOLOGY 02/08/17 04/12/23 documented as of this encounter
--- OUTSIDE RECORDS SUMMARY | 2024-09-03 20:49 | XMS_ITS | Encounter Summary ---
Author Organization [facility] Address [facility] [place] [address] [place] [address] Care Team Providers Care Sharepoint Admin Name Role Phone Piyush Pandey MD Unavailable Unavailabl e Megan Infante MD Primary Care Provider [phone] Sharmila Davis APRN PROJECTOR OPERATOR-C Unavailable Linda Block MD Unavailable [phone] Encounter Details Date Type Department Care Team (Late st Contact Info) Description 02/05/2000 Abstract [facility] [place] [facility] [address] [address] Social History Tobacco Use Types Packs/Day Years [...] Contact Info) Description 09/25/2024 2:00 PM ASSISTANT DIRECTOR OF ADMISSIONS Appointment [facility] [address] [place] [address] Zayra Poewll, RESERVATIONIST [address] [place] [address] 10/16/2024 3:30 PM ASSISTANT DIRECTOR OF ADMISSIONS Office Visit [facility] [address] [place] [address] [phone] Brit Gonzáles MD 619 [place] [address] documented as of this encounter Visit Diagnoses Not on filedocumented in this encounter Care Teams Sharepoint Admin Relationship Specialty Start Date End Date Megan Infante MD [address] [facility] [place] [address] PCP - General FAMILY PRACTICE 04/06/16 Piyush Pandey MD [place] Script Supervisor CARDIOVASCULAR DISEASE 04/06/16 12/28/23 Sharmila Davis APRN, PROJECTOR OPERATOR-C 619 [facility] 47 [place] [address] NURSE PRACTITIONER 01/04/17 04/03/24 Linda Block MD 619 [facility] [address] [address] [place] Script Supervisor CLINICAL CARDIAC ELECTROPHYSIOLOGY 02/08/17 04/12/23 documented as of this encounter
--- OUTSIDE RECORDS SUMMARY | 2024-09-03 20:49 | XMS_ITS | Encounter Summary ---
Author Organization [facility] Address [address] [place] [address]. [place] [address] [place] [address] Care Team Providers Care Integration Analyst Name Role Phone Piyush Pandey MD Unavailable Unavailabl Megan Leos MD Primary Care Provider [phone] Sharmila Davis APRN, TRANSIT OPERATIONS SUPERVISOR-C Unavailable Linda Block MD Unavailable [phone] Encounter Details Date Type Department Care Team (Late st Contact Info) Description 06/04/2000 Abstract SFL CONVERSION [address] [place] [address] , Generic MD Nikhil Social [...] st Contact Info) Description 09/25/2024 2:00 PM STARS COORDINATOR Appointment [facility] [address] [place] [address] Zayra Powell, CLOCK MAKER [address] [place] [address] 10/16/2024 3:30 PM STARS COORDINATOR Office Visit [facility] [address] [place] [phone] Brit Gonzáles MD [address] [place] [address] documented as of this encounter Visit Diagnoses Not on filedocumented in this encounter Care Teams Integration Analyst Relationship Specialty Start Date End Date Megan Infante MD [address] [facility] [place] [address] PCP - General FAMILY PRACTICE 04/06/16 Piyush Pandey MD [place] Senior Mechanical Development Engineer CARDIOVASCULAR DISEASE 04/06/16 12/28/23 Sharmila Davis APRN, TRANSIT OPERATIONS SUPERVISOR-C 619 [facility] [address] [place] [address] NURSE PRACTITIONER 01/04/17 04/03/24 Linda Block MD 619 [facility] [address] [place] [address] [place] Senior Mechanical Development Engineer CLINICAL CARDIAC ELECTROPHYSIOLOGY 02/08/17 04/12/23 documented as of this encounter
--- OUTSIDE RECORDS SUMMARY | 2024-09-03 20:49 | XMS_ITS | Encounter Summary ---
Author Organization [facility] Address [address] [place] [address]. [place] [address] [place] [address] Care Team Providers Care Battalion Chief Name Role Phone Piyush Pandey MD Unavailable Unavailabl Megan Leos MD Primary Care Provider [phone] Sharmila Davis APRN, DYE FEEDER-C Unavailable Linda Block MD Unavailable [phone] Encounter Details Date Type Department Care Team (Late st Contact Info) Description 04/13/2000 Abstract SFL CONVERSION [address] [place] [address] , Generic MD Nikhil Social [...] st Contact Info) Description 09/25/2024 2:00 PM FIBERGLASS SKI MAKER Appointment [facility] [address] [place] [address] Zayra Powell, MANAGER IMPLEMENTATION [address] [place] [address] 10/16/2024 3:30 PM FIBERGLASS SKI MAKER Office Visit [facility] [address] [place] [phone] Brit Gonzáles MD [address] [place] [address] documented as of this encounter Visit Diagnoses Not on filedocumented in this encounter Care Teams Battalion Chief Relationship Specialty Start Date End Date Megan Infante MD [address] [facility] [place] [phone] PCP - General FAMILY PRACTICE 04/06/16 Piyush Pandey MD [place] Web Application Developer CARDIOVASCULAR DISEASE 04/06/16 12/28/23 Sharmila Davis APRN, DYE FEEDER-C [address] [facility] [address] [place] [address] NURSE PRACTITIONER 01/04/17 04/03/24 Linda Block MD [address] [facility] [address] [place] [address] [place] Web Application Developer CLINICAL CARDIAC ELECTROPHYSIOLOGY 02/08/17 04/12/23 documented as of this encounter
--- OUTSIDE RECORDS SUMMARY | 2024-09-03 20:49 | XMS_ITS | Encounter Summary ---
Author Organization [facility] Address [address] [place] [address]. [place] [address] [place] [address] Care Team Providers Care Biometric Fingerprinting Technician Name Role Phone Piyush Pandey MD Unavailable Unavailabl Megan Leos MD Primary Care Provider [phone] Sharmila Davis APRN, COUNTER CHECKER-C Unavailable [phone] Linda Block MD Unavailable [phone] Encounter Details Date Type Department Care Team (Late st Contact Info) Description 07/29/2000 Abstract [facility]FL CONVERSION [address] [place] [address] , Generic MD Nikhil Social [...] Contact Info) Description 09/25/2024 2:00 PM HARNESS WORKER Appointment [facility] [address] [place] [address] Zayra Powell, CHEMISTRY INSTRUCTOR [address] [place] [address] 10/16/2024 3:30 PM HARNESS WORKER Office Visit [facility] [address] [place] [phone] Brit Gonzáles MD [address] [place] [address] documented as of this encounter Visit Diagnoses Not on filedocumented in this encounter Care Teams Biometric Fingerprinting Technician Relationship Specialty Start Date End Date Megan Infante MD [address] [facility] [place] [address] PCP - General FAMILY PRACTICE 04/06/16 Piyush Pandey MD [place] Private Client Advisor CARDIOVASCULAR DISEASE 04/06/16 12/28/23 Sharmila Davis APRN, COUNTER CHECKER-C [address] [facility] [address] [place] [address] NURSE PRACTITIONER 01/04/17 04/03/24 Linda Block MD [address] [facility] [address] [place] [address] [place] Private Client Advisor CLINICAL CARDIAC ELECTROPHYSIOLOGY 02/08/17 04/12/23 documented as of this encounter
--- OUTSIDE RECORDS SUMMARY | 2024-09-03 20:49 | XMS_ITS | Encounter Summary ---
Author Organization [facility] Address [address] [place] [address]. [place] [address] [place] [address] Care Team Providers Care Handle Sewer Name Role Phone Piyush Pandey MD Unavailable Unavailabl Megan Leos MD Primary Care Provider [phone] Sharmila Davis APRN, MAIL HANDLERS SUPERVISOR-C Unavailable Linda Block MD Unavailable [phone] Encounter Details Date Type Department Care Team (Late st Contact Info) Description 02/21/1999 Abstract [facility] CONVERSION [address] [place] [address] , Generic MD Nikhil Social [...] Contact Info) Description 09/25/2024 2:00 PM MANAGER OF INTERNATIONAL Appointment [facility] [address] [place] [address] Zayra Powell, GOLDBEATER [address] [place] [address] 10/16/2024 3:30 PM MANAGER OF INTERNATIONAL Office Visit [facility] [address] [place] [phone] Brit Gonzáles MD [address] [place] [address] documented as of this encounter Visit Diagnoses Not on filedocumented in this encounter Care Teams Handle Sewer Relationship Specialty Start Date End Date Megan Infante MD [address] [facility] [place] [phone] PCP - General FAMILY PRACTICE 04/06/16 Piyush Pandey MD [place] Senior Environmental Technician CARDIOVASCULAR DISEASE 04/06/16 12/28/23 Sharmila Davis APRN, MAIL HANDLERS SUPERVISOR-C 6[address] [facility] [address] [place] [address] NURSE PRACTITIONER 01/04/17 04/03/24 Linda Block MD [address] [facility] [address] [place] [address] [place] Senior Environmental Technician CLINICAL CARDIAC ELECTROPHYSIOLOGY 02/08/17 04/12/23 documented as of this encounter
--- OUTSIDE RECORDS SUMMARY | 2024-09-03 20:49 | XMS_ITS | Encounter Summary ---
Author Organization [facility] Address [address] [place] [address]. [place] [address] [place] [address] Care Team Providers Care Lime Sludge Mixer Name Role Phone Piyush Pandey MD Unavailable Unavailabl Megan Leos MD Primary Care Provider [phone] Sharmila Davis APRN, WHITEWASHER-C Unavailable [phone] Linda Block MD Unavailable [phone] Encounter Details Date Type Department Care Team (Late st Contact Info) Description 01/12/2000 Abstract [facility]FL CONVERSION [address] [place] [address] , Generic MD Nikhil Social [...] st Contact Info) Description 09/25/2024 2:00 PM NIBBLER OPERATOR Appointment [facility] [address] [place] [address] Zayra Powell, FIRE RANGER [address] [place] [address] 10/16/2024 3:30 PM NIBBLER OPERATOR Office Visit [facility] [address] [place] [phone] Brit Gonzáles MD [address] [place] [address] documented as of this encounter Visit Diagnoses Not on filedocumented in this encounter Care Teams Lime Sludge Mixer Relationship Specialty Start Date End Date Megan Infante MD [address] [facility] [place] [address] PCP - General FAMILY PRACTICE 04/06/16 Piyush Pandey MD [place] Acid Washer Operator CARDIOVASCULAR DISEASE 04/06/16 12/28/23 Sharmila Davis APRN, WHITEWASHER-C [address] [facility] [address] [place] [address] NURSE PRACTITIONER 01/04/17 04/03/24 Linda Block MD [address] [facility] [address] [place] [address] [place] Acid Washer Operator CLINICAL CARDIAC ELECTROPHYSIOLOGY 02/08/17 04/12/23 documented as of this encounter
--- OUTSIDE RECORDS SUMMARY | 2024-09-03 20:49 | XMS_ITS | Encounter Summary ---
Author Organization [facility] Address [address] [place] [address]. [place] [address] [place] [address] Care Team Providers Care Prepared Foods Team Leader Name Role Phone Piyush Pandey MD Unavailable Unavailabl Megan Leos MD Primary Care Provider [phone] Sharmila Davis APRN, ADZING AND BORING MACHINE HELPER-C Unavailable Linda Block MD Unavailable [phone] Encounter Details Date Type Department Care Team (Late st Contact Info) Description 12/15/1999 Abstract [facility]FL CONVERSION [address] [place] [address] , Generic MD Nikhil Social [...] Contact Info) Description 09/25/2024 2:00 PM COMMUNITY HEALTH COORDINATOR Appointment [facility] [address] [place] [address] Zayra Powell, OIL DEVELOPER [address] [place] [address] 10/16/2024 3:30 PM COMMUNITY HEALTH COORDINATOR Office Visit [facility] [address] [place] [phone] Brit Gonzáles MD [address] [place] [address] documented as of this encounter Visit Diagnoses Not on filedocumented in this encounter Care Teams Prepared Foods Team Leader Relationship Specialty Start Date End Date Megan Infante MD [address] [facility] [place] [address] PCP - General FAMILY PRACTICE 04/06/16 Piyush Pandey MD [place] Unit Clerk CARDIOVASCULAR DISEASE 04/06/16 12/28/23 Sharmila Davis APRN, ADZING AND BORING MACHINE HELPER-C [address] [facility] [address] [place] [address] NURSE PRACTITIONER 01/04/17 04/03/24 Linda Block MD 6[address] [facility] [address] [place] [address] [place] Unit Clerk CLINICAL CARDIAC ELECTROPHYSIOLOGY 02/08/17 04/12/23 documented as of this encounter
--- OUTSIDE RECORDS SUMMARY | 2024-09-03 20:49 | XMS_ITS | Encounter Summary ---
Author Organization [facility] Address [address] [place] [address]. [place] [address] [place] [address] Care Team Providers Care Naval Special Warfare Medic Name Role Phone Piyush Pandey MD Unavailable Unavailabl Megan Leos MD Primary Care Provider [phone] Sharmila Davis APRN, BLOOD BANK TECHNICIAN-C Unavailable Linda Block MD Unavailable [phone] Encounter Details Date Type Department Care Team (Late st Contact Info) Description 12/03/1998 Abstract SFL CONVERSION [address] [place] [address] , Generic MD Nikhil Social [...] Contact Info) Description 09/25/2024 2:00 PM SUPERINTENDENT SALES Appointment [facility] [address] [place] [address] Zayra Powell, RADIO ELECTRONICS TECHNICIAN [address] [place] [address] 10/16/2024 3:30 PM SUPERINTENDENT SALES Office Visit [facility] [address] [place] [phone] Brit Gonzáles MD [address] [place] [address] documented as of this encounter Visit Diagnoses Not on filedocumented in this encounter Care Teams Naval Special Warfare Medic Relationship Specialty Start Date End Date Megan Infante MD [address] [facility] [place] [phone] PCP - General FAMILY PRACTICE 04/06/16 Piyush Pandey MD [place] Lift Operator CARDIOVASCULAR DISEASE 04/06/16 12/28/23 Sharmila Davis APRN, BLOOD BANK TECHNICIAN-C [address] [facility] [address] [place] [address] NURSE PRACTITIONER 01/04/17 04/03/24 Linda Block MD [address] [facility] [address] [place] [address] [place] Lift Operator CLINICAL CARDIAC ELECTROPHYSIOLOGY 02/08/17 04/12/23 documented as of this encounter
--- OUTSIDE RECORDS SUMMARY | 2024-09-03 20:49 | XMS_ITS | Encounter Summary ---
Author Organization [facility] Address [address] [place] [address]. [place] [address] [place] [address] Care Team Providers Care Central Supply Worker Name Role Phone Piyush Pandey MD Unavailable Unavailabl Megan Leos MD Primary Care Provider [phone] Sharmila Davis APRN, WASH TANK TENDER-C Unavailable [phone] Linda Block MD Unavailable [phone] Encounter Details Date Type Department Care Team (Late st Contact Info) Description 11/13/1999 Abstract SFL CONVERSION [address] [place] [address] , Generic MD Nikhil Social [...] st Contact Info) Description 09/25/2024 2:00 PM PHLEBOTOMIST SUPERVISOR/INSTRUCTOR Appointment [facility] [address] [place] [address] Zayra Powell, GOLD BEATER [address] [place] [address] 10/16/2024 3:30 PM PHLEBOTOMIST SUPERVISOR/INSTRUCTOR Office Visit [facility] [address] [place] [phone] Brit Gonzáles MD [address] [place] [address] documented as of this encounter Visit Diagnoses Not on filedocumented in this encounter Care Teams Central Supply Worker Relationship Specialty Start Date End Date Megan Infante MD [address] [facility] [place] [address] PCP - General FAMILY PRACTICE 04/06/16 Piyush Pandey MD [place] Enrollment Management Vice President CARDIOVASCULAR DISEASE 04/06/16 12/28/23 Sharmila Davis APRN, WASH TANK TENDER-C 619 [facility] [address] [place] [address] NURSE PRACTITIONER 01/04/17 04/03/24 Linda Block MD [address] [facility] [address] [place] [address] [place] Enrollment Management Vice President CLINICAL CARDIAC ELECTROPHYSIOLOGY 02/08/17 04/12/23 documented as of this encounter
--- OUTSIDE RECORDS SUMMARY | 2024-09-03 20:49 | XMS_ITS | Encounter Summary ---
Author Organization [facility] Address [address] [place] [address]. [place] [address] [place] [address] Care Team Providers Care Commercial Real Estate Sales Manager Name Role Phone Piyush Pandey MD Unavailable Unavailabl Megan Leos MD Primary Care Provider [phone] Sharmila Davis APRN, LEAD ARCHITECT-C Unavailable Linda Block MD Unavailable [phone] Encounter Details Date Type Department Care Team (Late st Contact Info) Description 10/25/1998 Abstract SFL CONVERSION [address] [place] [address] , Generic MD Nikhil Social [...] st Contact Info) Description 09/25/2024 2:00 PM ARBITRATOR Appointment [facility] [address] [place] [address] Zayra Powell, EMPLOYEE BENEFITS ATTORNEY [address] [place] [address] 10/16/2024 3:30 PM ARBITRATOR Office Visit [facility] [address] [place] [phone] Brit Gonzáles MD [address] [place] [address] documented as of this encounter Visit Diagnoses Not on filedocumented in this encounter Care Teams Commercial Real Estate Sales Manager Relationship Specialty Start Date End Date Megan Infante MD [address] [facility] [place] [address] PCP - General FAMILY PRACTICE 04/06/16 Piyush Pandey MD [place] Larry Operator CARDIOVASCULAR DISEASE 04/06/16 12/28/23 Sharmila Davis APRN, LEAD ARCHITECT-C [address]19 [facility] [address] [place] [address] NURSE PRACTITIONER 01/04/17 04/03/24 Linda Block MD 6[address] [facility] [address] [place] [address] [place] Larry Operator CLINICAL CARDIAC ELECTROPHYSIOLOGY 02/08/17 04/12/23 documented as of this encounter
--- OUTSIDE RECORDS SUMMARY | 2024-09-03 21:36 | XMS_ITS | Clinical Summary ---
Author Organization Unknown Care Team Providers Care Compliance Attorney Name Role Phone MIRIAM LANDRY, MASHA Unavailable Unavailable ARUN RN, PAUL Unavailable Unavailable SATISH RN, ELIAS Unavailable Unavailable Payers Payer Name Policy Type Policy Number Effective Date Expira tion Date MEDICARE - [place] - PDGM [id number] Problems Condition Name Condition Details Condition Category [...] 05-06 00:00: 00 ATHSCL HEART DISEASE OF [place] CORONARY ARTERY W/O ANG PCTRS Active 05-06 [...] W/O RESID DEFICITS Active 05-06 00:00: 00 MANUAL TESTER (CURRENT) USE OF ASPIRIN Active 05-06 00:00: 00 MANUAL TESTER (CURRENT) USE OF ORAL HYPOGLYCEMIC DRUGS Active 05-06 00:00: 00 MANUAL TESTER (CURRENT) USE OF INSULIN Active 05-06 00:00: 00 MANUAL TESTER (CURRENT) USE OF OPIATE ANALGESIC Active 05-06 00:00: 00 DEPENDENCE ON SUPPLEMENTAL OXYGEN Active 05-06 00:00: 00 CARE HOME (CURRENT) USE OF ANTICOAGULAN TS Active 05-06 00:00: 00 MANUAL TESTER (CURRENT) USE OF INHALED STEROIDS Active 05-06 [...] 01-08 00:00: 00 01-13 23:59 :00 No [id number] 1 capsule 2 TIMES DAILY 1 capsule 2 TIMES DAILY (route: oral) Med Classific ation: Anti-Infe ctive Agents doxycycline hyclate 100 mg tablet 01-08 00:00: 00 01-13 23:59 :00 No [id number] 1 tablet 2 TIMES DAILY 1 tablet 2 TIMES DAILY (route: oral) Med Classific ation: Anti-Infe ctive Agents hydrocodone 7.5 mg-acetamin ophen 325 mg tablet 12-25 00:00: 00 02-20 23:59 :00 No [id number] 2 tablet 2 TIMES DAILY 2 tablet 2 TIMES DAILY (route: oral) Med Classific ation: Analgesic , Anti-infl ammatory or Antipyret ic Trelegy Ellipta 100 mcg-62.5 mcg-25 mcg powder for inhalation 12-23 00:00: 00 Yes [id number] 1 inhalat ion DAILY 1 inhalation DAILY (route: inhalation ) Med Classific ation: Respirato ry Therapy Agents Ventolin HFA 90 mcg/actuati on aerosol inhaler 12-23 00:00: 00 Yes [id number] 2 puff 4 TIMES DAILY 2 puff 4 TIMES DAILY (route: inhalation ) Med Classific ation: Respirato ry Therapy Agents gabapentin 400 mg capsule 12-14 00:00: 00 Yes [id number] Per instruc tions 2 TIMES DAILY Per instructio ns 2 TIMES DAILY (route: oral) Med Classific ation: Central Nervous System Agents allopurinol 300 mg tablet 01-09 00:00: 00 Yes [id number] 1 tablet DAILY 1 tablet DAILY (route: oral) Med Classific ation: Gout and Hyperuric emia Therapy aspirin 81 mg chewable tablet 01-09 00:00: 00 Yes [id number] 1 tablet DAILY 1 tablet DAILY (route: oral) Med Classific ation: Hematolog ical Agents atorvastati n 80 mg tablet 01-09 00:00: 00 Yes [id number] 1 tablet BEDTIME 1 tablet BEDTIME (route: oral) Med Classific ation: Cardiovas cular Therapy Agents BiDil 20 mg-37.5 mg tablet 01-09 00:00: 00 Yes [id number] 1 tablet DAILY 1 tablet DAILY (route: oral) Med Classific ation: Cardiovas cular Therapy Agents carvedilol 3.125 mg tablet 01-09 00:00: 00 Yes [id number] 1 tablet 2 TIMES DAILY 1 tablet 2 TIMES DAILY (route: oral) Med Classific ation: Cardiovas cular Therapy Agents docusate sodium 100 mg capsule 01-09 00:00: 00 Yes [id number] 1 capsule DAILY 1 capsule DAILY (route: oral) Med Classific ation: Gastroint estinal Therapy Agents furosemide 80 mg tablet 01-09 00:00: 00 02-20 23:59 :00 No [id number] 1 tablet DAILY 1 tablet DAILY (route: oral) Med Classific ation: Cardiovas cular Therapy Agents glipizide ER 10 mg tablet, extended release 24 hr 01-09 00:00: 00 02-20 23:59 :00 No [id number] 1 tablet DAILY 1 tablet DAILY (route: oral) Med Classific ation: Endocrine hydroxyzine HCl 25 mg tablet 01-09 00:00: 00 Yes [id number] 1 tablet EVERY 8 HOURS 1 tablet EVERY 8 HOURS (route: oral) Med Classific ation: Central Nervous System Agents Jardiance 25 mg tablet 01-09 00:00: 00 Yes [id number] 1 tablet DAILY 1 tablet DAILY (route: oral) Med Classific ation: Endocrine methocarbam ol 500 mg tablet 01-09 00:00: 00 02-20 23:59 :00 No [id number] 1 tablet 2 TIMES DAILY 1 tablet 2 TIMES DAILY (route: oral) Med Classific ation: Locomotor System mupirocin 2 % topical ointment 01-09 00:00: 00 Yes [id number] Per instruc tions 2 TIMES DAILY Per instructio ns 2 TIMES DAILY (route: topical) Med Classific ation: Dermatolo gical Protonix 40 mg tablet,brandon yed release 01-09 00:00: 00 Yes [id number] 1 tablet DAILY 1 tablet DAILY (route: oral) Med Classific ation: Gastroint estinal Therapy Agents ropinirole 4 mg tablet 01-09 00:00: 00 Yes [id number] 1 tablet BEDTIME 1 tablet BEDTIME (route: oral) Med Classific ation: Central Nervous System Agents sertraline 50 mg tablet 01-09 00:00: 00 Yes [id number] 1 tablet DAILY 1 tablet DAILY (route: oral) Med Classific ation: Central Nervous System Agents spironolact one 25 mg tablet 01-09 00:00: 00 Yes [id number] 1 tablet DAILY 1 tablet DAILY (route: oral) Med Classific ation: Cardiovas cular Therapy Agents trazodone 100 mg tablet 01-09 00:00: 00 Yes [id number] 2 tablet BEDTIME 2 tablet BEDTIME (route: oral) Med Classific ation: Central Nervous System Agents warfarin 6 mg tablet 01-09 00:00: 00 01-19 23:59 :00 No [id number] 1 tablet DAILY 1 tablet DAILY (route: oral) Med Classific ation: Hematolog ical Agents insulin lispro (U-100) 100 unit/mL subcutaneou s pen 01-09 00:00: 00 Yes [id number] Per instruc tions DIRECTED Per instructio ns DIRECTED (route: subcutaneo us) Med Classific ation: Endocrine O2 - OXYGEN 01-09 00:00: 00 Yes [id number] 2 Liter NEEDED 2 Liter A S NEEDED (route: Oxygen) Med Classific ation: Medical Oxygen warfarin 5 mg tablet 01-11 00:00: 00 01-19 23:59 :00 No [id number] 5 mg DAILY 5 mg DAILY (route: oral) Alternate Route: NONE. Med Classific ation: Hematolog ical Agents warfarin 3 mg tablet 6-05 00:00: 00 01-29 23:59 :00 No [id number] 1 tablet DAILY 1 tablet DAILY (route: oral) Med Classific ation: Hematolog ical Agents warfarin 4 mg tablet 6-05 00:00: 00 01-29 23:59 :00 No [id number] 1 tablet DAILY 1 tablet DAILY (route: oral) Med Classific ation: Hematolog ical Agents warfarin 3 mg tablet 610 00:00: 00 01-31 23:59 :00 No [id number] 2 tablet DAILY 2 tablet DAILY (route: oral) Med Classific ation: Hematolog ical Agents warfarin 1 mg tablet 613 00:00: 00 02-23 23:59 :00 No [id number] .5 tablet EVERY PM .5 tablet EVERY PM (route: oral) Med Classific ation: Hematolog ical Agents warfarin 5 mg tablet 613 00:00: 00 02-05 23:59 :00 No [id number] 1 tablet EVERY PM 1 tablet EVERY PM (route: oral) Med Classific ation: Hematolog ical Agents warfarin 5 mg tablet 16 00:00: 00 02-23 23:59 :00 No [id number] 1 tablet EVERY PM 1 tablet EVERY PM (route: oral) Med Classific ation: Hematolog ical Agents furosemide 40 mg tablet 02-20 00:00: 00 Yes [id number] 1 tablet DAILY 1 tablet DAILY (route: oral) Med Classific ation: Cardiovas cular Therapy Agents glipizide 5 mg tablet 02-20 00:00: 00 Yes [id number] 1 tablet DAILY 1 tablet DAILY (route: oral) Med Classific ation: Endocrine hydrocodone 7.5 mg-acetamin ophen 325 mg tablet 02-20 00:00: 00 Yes [id number] 1 tablet EVERY 8 HOURS 1 tablet EVERY 8 HOURS (route: oral) Med Classific ation: Analgesic , Anti-infl ammatory or Antipyret ic Levemir FlexPen 100 unit/mL (3 mL) solution subcutaneou s insulin pen 02-20 00:00: 00 Yes [id number] 15 unit BEDTIME 15 unit BEDTIME (route: subcutaneo us) Med Classific ation: Endocrine Lidocaine Pain Relief 4 % topical patch 02-20 00:00: 00 Yes [id number] 1 adhesiv e patch, medicat ed DAILY 1 adhesive patch, medicated DAILY (route: topical) Med Classific ation: Dermatolo gical methocarbam ol 500 mg tablet 02-20 00:00: 00 Yes [id number] 1 tablet 3 TIMES DAILY 1 tablet 3 TIMES DAILY (route: oral) Med Classific ation: Locomotor System metolazone 2.5 mg tablet 02-20 00:00: 00 Yes [id number] 1 tablet 2 TIMES A WEEK 1 tablet 2 TIMES A WEEK (route: oral) Med Classific ation: Cardiovas cular Therapy Agents warfarin 1 mg tablet 02-20 00:00: 00 02-25 23:59 :00 No [id number] 1 tablet DAILY 1 tablet DAILY (route: oral) Med Classific ation: Hematolog ical Agents warfarin 6 mg tablet 02-23 00:00: 00 02-25 23:59 :00 No [id number] 1 tablet DAILY 1 tablet DAILY (route: oral) Med Classific ation: Hematolog ical Agents warfarin 1 mg tablet 02-25 00:00: 00 03-08 23:59 :00 No [id number] 3 tablet DAILY 3 tablet DAILY (route: oral) Med Classific ation: Hematolog ical Agents warfarin 5 mg tablet 02-25 00:00: 00 03-08 23:59 :00 No [id number] 1 tablet DAILY 1 tablet DAILY (route: oral) Med Classific ation: Hematolog ical Agents warfarin 1 mg tablet 03-09 00:00: 00 03-29 23:59 :00 No [id number] 1 tablet EVERY OTHER DAY 1 tablet EVERY OTHER DAY (route: oral) Med Classific ation: Hematolog ical Agents warfarin 3 mg tablet 03-10 00:00: 00 03-26 23:59 :00 No [id number] 1 tablet EVERY OTHER DAY 1 tablet EVERY OTHER DAY (route: oral) Med Classific ation: Hematolog ical Agents warfarin 5 mg tablet 03-10 00:00: 00 03-26 23:59 :00 No [id number] 1 tablet EVERY OTHER DAY 1 tablet EVERY OTHER DAY (route: oral) Med Classific ation: Hematolog ical Agents warfarin 6 mg tablet 03-09 00:00: 00 03-29 23:59 :00 No [id number] 1 tablet EVERY OTHER DAY 1 tablet EVERY OTHER DAY (route: oral) Med Classific ation: Hematolog ical Agents A and D (liam, pet) topical ointment 03-12 00:00: 00 Yes [id number] 1 inch DAILY 1 inch DAILY (route: topical) Med Classific ation: Dermatolo gical Benadryl 25 mg capsule 03-12 00:00: 00 Yes [id number] 1-2 capsule EVERY 4 HOURS 1-2 capsule EVERY 4 HOURS (route: oral) Alternate Route: NONE. Med Classific ation: Respirato ry Therapy Agents warfarin 6 mg tablet 03-29 00:00: 00 05-06 23:59 :00 No [id number] 1 tablet DAILY 1 tablet DAILY (route: oral) Med Classific ation: Hematolog ical Agents warfarin 1 mg tablet 03-29 00:00: 00 04-27 23:59 :00 No [id number] 1 tablet DAILY 1 tablet DAILY (route: oral) Med Classific ation: Hematolog ical Agents dicloxacill in 250 mg capsule 03-30 00:00: 00 Yes [id number] 1 capsule EVERY 6 HOURS 1 capsule EVERY 6 HOURS (route: oral) Med Classific ation: Anti-Infe ctive Agents triamcinolo ne acetonide 0.1 % topical cream 04-02 00:00: 00 Yes [id number] 1 inch DAILY 1 inch DAILY (route: topical) Med Classific ation: Dermatolo gical warfarin 1 mg tablet 04-28 00:00: 00 05-06 23:59 :00 No [id number] 0.5 tablet DAILY 0.5 tablet DAILY (route: oral) Med Classific ation: Hematolog ical Agents Lovenox 100 mg/mL subcutaneou s syringe 05-10 00:00: 00 05-17 23:59 :00 No [id number] 1 mL EVERY 12 HOURS 1 mL EVERY 12 HOURS (route: subcutaneo us) Med Classific ation: Hematolog ical Agents Senna Lax 8.6 mg tablet 05-09 00:00: 00 Yes [id number] 1 tablet DAILY 1 tablet DAILY (route: oral) Med Classific ation: Gastroint estinal Therapy Agents tizanidine 2 mg capsule 05-09 00:00: 00 Yes [id number] 1 capsule EVERY 8 HOURS 1 capsule EVERY 8 HOURS (route: oral) Med Classific ation: Locomotor System warfarin 1 mg tablet 05-10 00:00: 00 05-14 23:59 :00 No [id number] 1 tablet DAILY 1 tablet DAILY (route: oral) Med Classific ation: Hematolog ical Agents warfarin 6 mg tablet 05-10 00:00: 00 05-14 23:59 :00 No [id number] 1 tablet DAILY 1 tablet DAILY (route: oral) Med Classific ation: Hematolog ical Agents warfarin 10 mg tablet 05-14 00:00: 00 05-17 23:59 :00 No [id number] 1 tablet DAILY 1 tablet DAILY (route: oral) Med Classific ation: Hematolog ical Agents warfarin 1 mg tablet 05-17 00:00: 00 07-05 23:59 :00 No [id number] 2 tablet DAILY 2 tablet DAILY (route: oral) Med Classific ation: Hematolog ical Agents warfarin 6 mg tablet 05-17 00:00: 00 07-05 23:59 :00 No [id number] 1 tablet DAILY 1 tablet DAILY (route: oral) Med Classific ation: Hematolog ical Agents cephalexin 500 mg capsule 05-18 00:00: 00 05-24 23:59 :00 No [id number] 1 capsule 3 TIMES DAILY 1 capsule 3 TIMES DAILY (route: oral) Med Classific ation: Anti-Infe ctive Agents warfarin 3 mg tablet 2022-08 0-11 00:00: 00 06-14 23:59 :00 No [id number] 1 tablet DAILY 1 tablet DAILY (route: oral) Med Classific ation: Hematolog ical Agents warfarin 6 mg tablet 2022-08 0-11 00:00: 00 06-14 23:59 :00 No [id number] 1 tablet DAILY 1 tablet DAILY (route: oral) Med Classific ation: Hematolog ical Agents tizanidine 4 mg tablet 2022-08 0 00:00: 00 Yes [id number] 1 tablet 3 TIMES DAILY 1 tablet 3 TIMES DAILY (route: oral) Med Classific ation: Locomotor System warfarin 6 mg tablet 2022-08 1-15 00:00: 00 Yes [id number] 1 tablet DAILY 1 tablet DAILY (route: [...] PATIENT/CAREGIVER ON COPD TO INCLUDE USE OF [facility] FOR TEACHING AND SELF-MANAGEMENT RELATED TO COPD DISEASE PROCESS, SIGNS AND SYMPTOMS, AND COMPLICATIONS. [code = SKILLED NURSE TO INSTRUCT PATIENT/CAREGIVER ON COPD TO INCLUDE USE OF [facility] FOR TEACHING AND SELF-MANAGEMENT RELATED TO COPD DISEASE PROCESS, SIGNS AND SYMPTOMS, AND COMPLICATIONS.] Future Scheduled Test SKILLED NU RSE FOR O/A, USE OF [facility] FOR TEACHING AND SELF-MANAGEMENT RELATED TO HEART FAILURE. INSTRUCT PATIENT/CAREGIVER ON SIGNS AND SYMPTOMS OF EXACERBATION TO REPORT. [code = SKILLED NURSE FOR O/A, USE OF [facility] FOR TEACHING AND SELF-MANAGEMENT RELATED TO HEART FAILURE. INSTRUCT PATIENT/CAREGIVER ON SIGNS AND SYMPTOMS OF EXACERBATION TO REPORT. ] Future Scheduled Test SKILLED NU RSE TO INSTRUCT PATIENT/CAREGIVER ON WARNING SIGNS OF CVA, RISK FACTORS, AND METHODS TO MANAGE CARE HOME EFFECTS OF CVA INCLUDING USE OF [facility] SPECIALTY PROGRAM. [code = SKILLED NURSE TO INSTRUCT PATIENT/CAREGIVER ON WARNING SIGNS OF CVA, RISK FACTORS, AND METHODS TO MANAGE MANUAL TESTER EFFECTS OF CVA INCLUDING USE OF [facility] SPECIALTY PROGRAM.] Future Scheduled Test SKILLED [...] CARE WILL BE ESTABLISHED THAT MEETS PATIENT'S [facility] NEEDS AND INCLUDES PATIENT GOAL FOR HOME [...] VERBALIZE/DEMONSTRATE UTILIZATION OF TOOLS ASSOCIATED WITH THE [facility], AND/OR KNOWLEDGE AND MANAGEMENT OF COPD BY END OF EPISODE. Goal Provider Goal - PATIENT/CAREGIVER WILL VERBALIZE/DEMONSTRATE UTILIZATION OF TOOLS ASSOCIATED WITH THE [facility] MATTERS OF THE HEART SPECIALTY PROGRAM, AND/OR [...] End Date/Time Encounter Type Admission Type Attending [facility] Care Department Encounter ID Discharge Date Discharge Status Discharge Condition Discharge Reason Percent Goals Met 2023-01-09 00:00:00 2023-07-05 00:00:00 Outpatient RECERTIFIC ATION ELIAS COVARRUBIAS [facility] [id number] 2023-07-05 00:00:00 DISCHARGE TO HOME OR SELF CARE INDEPENDEN T IN THE COMMUNITY GOALS MET ( ONLY) 45.00
--- OUTSIDE RECORDS SUMMARY | 2024-09-03 21:36 | XMS_ITS | Clinical Summary ---
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 08-23 [...] OF NICOTINE DEPENDENCE Active 08-23 00:00: 00 ASSISTED (CURRENT) USE OF ASPIRIN Active 08-23 00:00: 00 PROPERTY DISPOSAL OFFICER (CURRENT) USE OF ORAL HYPOGLYCEMIC DRUGS Active 08-23 00:00: 00 LNG TRM (CRNT) USE INJECTABLE NON-INSULIN ANTIDIABETIC DRUGS Active 08-23 00:00: 00 PROPERTY DISPOSAL OFFICER (CURRENT) USE OF ANTICOAGULAN TS Active 08-23 00:00: 00 PROPERTY DISPOSAL OFFICER (CURRENT) USE OF INHALED STEROIDS Active 08-23 [...] 03-01 00:00: 00 08-17 23:59 :00 No [id number] GOUT 1 tablet ONCE DAILY 1 tablet ONCE DAILY (route: oral) Med Classific ation: Gout and Hyperuric emia Therapy aspirin 81 mg tablet,brandon yed release 03-01 00:00: 08-17 23:59 :00 No [id number] CAD 1 tablet ONCE DAILY 1 tablet ONCE DAILY (route: oral) Med Classific ation: Hematolog ical Agents atorvastati n 80 mg tablet 03-01 00:00: 00 08-17 23:59 :00 No [id number] HLD 1 tablet ONCE DAILY 1 tablet ONCE DAILY (route: oral) Med Classific ation: Cardiovas cular Therapy Agents carvedilol 3.125 mg tablet 03-01 00:00: 00 08-17 23:59 :00 No [id number] CAD 1 tablet TWICE DAILY 1 tablet TWICE DAILY (route: oral) Med Classific ation: Cardiovas cular Therapy Agents dicloxacill in 500 mg capsule 02-24 00:00: 00 03-05 23:59 :00 No [id number] CELLULITIS 1 capsule 4 TIMES DAILY 1 capsule 4 TIMES DAILY (route: oral) Med Classific ation: Anti-Infe ctive Agents docusate sodium 100 mg capsule 03-01 00:00: 00 08-17 23:59 :00 No [id number] CONSTIPATIO N 1 capsule TWICE DAILY 1 capsule TWICE DAILY (route: oral) Med Classific ation: Gastroint estinal Therapy Agents Entresto 24 mg-26 mg tablet 03-01 00:00: 00 08-17 23:59 :00 No [id number] CHF 1 tablet TWICE DAILY 1 tablet TWICE DAILY (route: oral) Med Classific ation: Cardiovas cular Therapy Agents ferrous sulfate 325 mg (65 mg iron) tablet 03-01 00:00: 00 08-17 23:59 :00 No [id number] ANEMIA 1 tablet ONCE DAILY 1 tablet ONCE DAILY (route: oral) Med Classific ation: Electroly te Balance-N utritiona l Products furosemide 40 mg tablet 03-01 00:00: 00 08-17 23:59 :00 No [id number] CHF 1 tablet TWICE DAILY 1 tablet TWICE DAILY (route: oral) Med Classific ation: Cardiovas cular Therapy Agents gabapentin 400 mg capsule 03-01 00:00: 08-17 23:59 :00 No [id number] NEUROPATHY 1 capsule TWICE DAILY 1 capsule TWICE DAILY (route: oral) Med Classific ation: Central Nervous System Agents glipizide 5 mg tablet 03-01 00:00: 08-17 23:59 :00 No [id number] DM 1 tablet ONCE DAILY 1 tablet ONCE DAILY (route: oral) Med Classific ation: Endocrine hydrocodone 7.5 mg-acetamin ophen 325 mg tablet 03-01 00:00: 08-17 23:59 :00 No [id number] PAIN 1 tablet 3 TIMES DAILY 1 tablet 3 TIMES DAILY (route: oral) Med Classific ation: Analgesic , Anti-infl ammatory or Antipyret ic hydroxyzine HCl 50 mg tablet 03-01 00:00: 00 08-17 23:59 :00 No [id number] ITCHING 2 tablet 3 TIMES DAILY 2 tablet 3 TIMES DAILY (route: oral) Med Classific ation: Central Nervous System Agents Jardiance 25 mg tablet 03-01 00:00: 08-17 23:59 :00 No [id number] DM 1 tablet ONCE DAILY 1 tablet ONCE DAILY (route: oral) Med Classific ation: Endocrine OXYGEN 03-01 00:00: 08-17 23:59 :00 No [id number] HYPOXIA 2-3 Liter NEEDED 2-3 Liter NEEDED (route: Oxygen) Med Classific ation: Medical Oxygen Ozempic 1 mg/dose (4 mg/3 mL) subcutaneou s pen injector 03-01 00:00: 00 08-17 23:59 :00 No [id number] DM 1 mg WEEKLY 1 mg WEEKLY (route: subcutaneo us) Med Classific ation: Endocrine pantoprazol e 40 mg tablet,brandon yed release 03-01 00:00: 00 08-17 23:59 :00 No [id number] GERD 1 tablet ONCE DAILY 1 tablet ONCE DAILY (route: oral) Med Classific ation: Gastroint estinal Therapy Agents potassium chloride ER 20 mEq tablet,exte nded release 03-01 00:00: 00 08-17 23:59 :00 No [id number] HYPOKALEMIA 1 tablet ONCE DAILY 1 tablet ONCE DAILY (route: oral) Med Classific ation: Electroly te Balance-N utritiona l Products ropinirole 2 mg tablet 03-01 00:00: 00 08-17 23:59 :00 No [id number] RLS 2 tablet AT BEDTIME 2 tablet AT BEDTIME (route: oral) Med Classific ation: Central Nervous System Agents sertraline 50 mg tablet 03-01 00:00: 00 08-17 23:59 :00 No [id number] DEPRESSION 1 tablet ONCE DAILY 1 tablet ONCE DAILY (route: oral) Med Classific ation: Central Nervous System Agents spironolact one 25 mg tablet 03-01 00:00: 00 08-17 23:59 :00 No [id number] CH 1 tablet ONCE DAILY 1 tablet ONCE DAILY (route: oral) Med Classific ation: Cardiovas cular Therapy Agents tamsulosin 0.4 mg capsule 03-01 00:00: 00 08-17 23:59 :00 No [id number] URINARY RETENTION 1 capsule ONCE DAILY 1 capsule ONCE DAILY (route: oral) Med Classific ation: Genitouri nary Therapy trazodone 150 mg tablet 03-01 00:00: 00 08-17 23:59 :00 No [id number] INSOMNIA 1 tablet AT BEDTIME 1 tablet AT BEDTIME (route: oral) Med Classific ation: Central Nervous System Agents Tresiba FlexTouch U-200 insulin 200 unit/mL (3 mL) subcutaneou s pen 03-01 00:00: 00 08-17 23:59 :00 No [id number] DM 30 unit ONCE DAILY 30 unit ONCE DAILY (route: subcutaneo us) Med Classific ation: Endocrine Ventolin HFA 90 mcg/actuati on aerosol inhaler 03-01 00:00: 00 08-17 23:59 :00 No [id number] WHEEZING/SH ORTNESS OF BREATH 1 puff EVERY 4 HOURS 1 puff EVERY 4 HOURS (route: inhalation ) Med Classific ation: Respirato ry Therapy Agents warfarin 1 mg tablet 03-01 00:00: 00 08-17 23:59 :00 No [id number] AFIB 1 tablet AT BEDTIME 1 tablet AT BEDTIME (route: oral) Med Classific ation: Hematolog ical Agents warfarin 5 mg tablet 03-01 00:00: 00 08-17 23:59 :00 No [id number] AFIB 1 tablet AT BEDTIME 1 tablet AT BEDTIME (route: oral) Med Classific ation: Hematolog ical Agents albuterol sulfate HFA 90 mcg/actuati on aerosol inhaler 2023-08 00:00: 00 Yes [id number] WHEEZING 2 puff EVERY 4 HOURS 2 puff EVERY 4 HOURS (route: inhalation ) Med Classific ation: Respirato ry Therapy Agents allopurinol 300 mg tablet 2023-08 00:00: 00 Yes [id number] GOUT 1 tablet DAILY 1 tablet DAILY (route: oral) Med Classific ation: Gout and Hyperuric emia Therapy aspirin 81 mg tablet,brandon yed release 2023-08 00:00: 00 Yes [id number] BLOOD CLOT PREVENTION 1 tablet DAILY 1 tablet DAILY (route: oral) Med Classific ation: Hematolog ical Agents carvedilol 3.125 mg tablet 2023-08 00:00: 00 Yes [id number] HTN 1 tablet 2 TIMES DAILY 1 tablet 2 TIMES DAILY (route: oral) Med Classific ation: Cardiovas cular Therapy Agents Colace 100 mg capsule 2023-08 00:00: 00 Yes [id number] CONSTIPATIO N 1 capsule DAILY 1 capsule DAILY (route: oral) Med Classific ation: Gastroint estinal Therapy Agents cyclobenzap rine 10 mg tablet 2023-08 00:00: 00 Yes [id number] BPH 1 tablet DAILY 1 tablet DAILY (route: oral) Med Classific ation: Locomotor System Entresto 24 mg-26 mg tablet 2023-08 00:00: 00 Yes [id number] HF 1 tablet 2 TIMES DAILY 1 tablet 2 TIMES DAILY (route: oral) Med Classific ation: Cardiovas cular Therapy Agents folic acid 1 mg tablet 2023-08 00:00: 00 Yes [id number] SUPPLEMENT 1 tablet DAILY 1 tablet DAILY (route: oral) Med Classific ation: Electroly te Balance-N utritiona l Products gabapentin 400 mg capsule 2023-08 00:00: 00 Yes [id number] NEUROPATHY 1 capsule 2 TIMES DAILY 1 capsule 2 TIMES DAILY (route: oral) Med Classific ation: Central Nervous System Agents glipizide 5 mg tablet 2023-08 00:00: 00 Yes [id number] DIABETES 1 tablet DAILY 1 tablet DAILY (route: oral) Med Classific ation: Endocrine hydrocodone 10 mg-acetamin ophen 325 mg tablet 2023-08 00:00: 00 Yes [id number] PAIN 1 tablet EVERY 6 HOURS 1 tablet EVERY 6 HOURS (route: oral) Med Classific ation: Analgesic , Anti-infl ammatory or Antipyret ic hydroxyzine HCl 50 mg tablet 2023-08 00:00: 00 Yes [id number] ITCHING 2 tablet 3 TIMES DAILY 2 tablet 3 TIMES DAILY (route: oral) Med Classific ation: Central Nervous System Agents Jardiance 25 mg tablet 2023-08 00:00: 00 Yes [id number] DIABETES 1 tablet DAILY 1 tablet DAILY (route: oral) Med Classific ation: Endocrine Lasix 80 mg tablet 2023-08 00:00: 00 Yes [id number] FLUID RETENTION 1 tablet DAILY 1 tablet DAILY (route: oral) Med Classific ation: Cardiovas cular Therapy Agents oxygen gas for inhalation 2023-08 00:00: 00 08-21 23:59 :00 No [id number] OXYGENATION 2 Liter O2 - PRN 2 Liter O2 - PRN (route: inhalation ) Med Classific ation: Medical Supplies and Durable Medical Equipment (DME) Ozempic 1 mg/dose (4 mg/3 mL) subcutaneou s pen injector 2023-08 00:00: 00 Yes [id number] DIABETES 1 mg WEEKLY 1 mg WEEKLY (route: subcutaneo us) Med Classific ation: Endocrine pregabalin 150 mg capsule 2023-08 00:00: 00 Yes [id number] MUSCLE PAIN 1 capsule 2 TIMES DAILY 1 capsule 2 TIMES DAILY (route: oral) Med Classific ation: Central Nervous System Agents sertraline 50 mg tablet 2023-08 00:00: 00 Yes [id number] DEPRESSION 1 tablet DAILY 1 tablet DAILY (route: oral) Med Classific ation: Central Nervous System Agents trazodone 150 mg tablet 2023-08 00:00: 00 Yes [id number] DEPRESSION 2 tablet DAILY 2 tablet DAILY (route: oral) Med Classific ation: Central Nervous System Agents Trelegy Ellipta 100 mcg-62.5 mcg-25 mcg powder for inhalation 2023-08 00:00: 00 Yes [id number] SHORTNESS OF BREATH 1 inhalat ion DAILY 1 inhalation DAILY (route: inhalation ) Med Classific ation: Respirato ry Therapy Agents warfarin 4 mg tablet 2023-08 00:00: 00 Yes [id number] BLOOD CLOT PREVENTION 1 tablet DAILY 1 tablet DAILY (route: oral) Med Classific ation: Hematolog ical Agents oxygen gas for inhalation 2023-08 00:00: 00 Yes [id number] OXYGENATION 2 Liter O2 - PRN 2 [...] THE CERTIFIED CARE PLAN: JOSE A CASPER PHYSICAL THERAPY ASSISTANT [code = EACH ORDERED IN-HOME OR TELEHEALTH [...] THE CERTIFIED CARE PLAN: JOSE A CASPER PHYSICAL THERAPY ASSISTANT ] Future Scheduled Test HOME [facility] H [...] TEACH DEPRESSIVE SYMPTOMS.] Future Scheduled Test HOME [facility] NURSE WILL INSTRUCT PATIENT/CAREGIVER ON TYPE 2 [...] LOW BLOOD SUGAR.] Future Scheduled Test [facility] NURSE WILL INSTRUCT AND VERIFY APPROPRIATE STEPS [...] TIMES PER DAY.] Future Scheduled Test [facility] NURSE TO INSTRUCT PATIENT/CAREGIVER ON THE TYPE [...] THE WEEK. ] Future Scheduled Test [facility] NURSE WILL ASSESS FOR COMPLICATIONS RELATED TO [...] WILL BE ESTABLISHED THAT MEETS ALL PATIENT'S HALFWAY NEEDS AND COUNTER SIGNED BY PHYSICIAN. Goal [...] READINGS IN LOG BOOK. TO SN CALLED [facility] IN RE, SN'S FINDINGS SUCH ABNORMAL DARK PURPLE BRUISING TO ABDOMEN, RT LEG, LEVEL 10 PAIN TO RIGHT RIB CAGE AREA, LUNG SOUNDS VERY DIMINISHED ALL SNADY, SOB. SN SPOKE WITH WEB PRESS ROLL TENDER, THEN WAS TRANSFERED TO ER. SPOKE WITH LUGGAGE MAKER NIK. NIK TRANSFERED THIS SN BACK TO [facility] [employer] TENDER FOR MD PEDIATRIC ONCOLOGIST. SN INSTRUCTED WEB PRESS ROLL TENDER TO CALL PEDIATRIC ONCOLOGIST DR BINA MONIQUE TO THIS SN BACK. [...] MD THAT PTNT WILL BE GOING TO [facility] ER FOR EVAL. SN CALLED LOKESH ESCOBAR DTR STAYED UPSTAIRS DURING SNV FOR PTNT TO GO TO ER. LUZ REPORTS THAT HER TAKES HIS LUNCH AT 1100 AND WILL TAKE PTNT THEN. SN CALLED [facility] ER 1040 SPOKE TO ER NURSE MITCHELL WITH UPDATE APPROXIMATE ETA. UPDATED PRIMARY RN SIS MONTEJO SUPERVISORS J LUIS HUERTAS, SCHEDULERS ORESTES, AND BELEM.</paragraph> Encounters Start Date/Time End Date/Time Encounter Type Admission Type Attending Clinicians Care Facility Care Department Encounter ID Discharge Date Discharge Status Discharge Condition Discharge Reason Percent Goals Met 2024-08-20 00:00:00 2024-10-18 00:00:00 Outpatient GUSTABO [facility] [id number]
== END 2024-08-31 07:30 | disposition short-term general hospital (02) ==
LOC: CHSED 14:16 → CHS2ND 14:27
PROVIDERS: Nurse Practitioner Family; Admitting Provider Internal Medicine; Emergency Provider Emergency Medicine; PCP Family Medicine; Visit Provider Nurse Practitioner Acute Care
DX: N17.9 Acute kidney failure, unspecified (principal); I13.0 Hypertensive heart and chronic kidney disease with heart failure and stage 1 through stage 4 chronic kidney disease, or unspecified chronic kidney disease; I50.23 Acute on chronic systolic (congestive) heart failure; E11.22 Type 2 diabetes mellitus with diabetic chronic kidney disease; N18.4 Chronic kidney disease, stage 4 (severe); E87.5 Hyperkalemia; D69.6 Thrombocytopenia, unspecified; D68.32 Hemorrhagic disorder due to extrinsic circulating anticoagulants; T45.515A Adverse effect of anticoagulants, initial encounter; R60.1 Generalized edema; S22.41XA Multiple fractures of ribs, right side, initial encounter for closed fracture; W01.0XXA Fall on same level from slipping, tripping and stumbling without subsequent striking against object, initial encounter; I27.20 Pulmonary hypertension, unspecified; I25.10 Atherosclerotic heart disease of native coronary artery without angina pectoris; E11.40 Type 2 diabetes mellitus with diabetic neuropathy, unspecified; E11.51 Type 2 diabetes mellitus with diabetic peripheral angiopathy without gangrene; J44.9 Chronic obstructive pulmonary disease, unspecified; G47.33 Obstructive sleep apnea (adult) (pediatric); I48.91 Unspecified atrial fibrillation; R41.82 Altered mental status, unspecified; N40.0 Benign prostatic hyperplasia without lower urinary tract symptoms; G93.89 Other specified disorders of brain; G25.81 Restless legs syndrome; I65.23 Occlusion and stenosis of bilateral carotid arteries; F32.A Depression, unspecified; M10.9 Gout, unspecified; E78.5 Hyperlipidemia, unspecified; Z20.822 Contact with and (suspected) exposure to COVID-19; Z99.81 Dependence on supplemental oxygen; Z79.4 Long term (current) use of insulin; Z79.01 Long term (current) use of anticoagulants; Z79.51 Long term (current) use of inhaled steroids; Z79.82 Long term (current) use of aspirin; Z79.84 Long term (current) use of oral hypoglycemic drugs; Z86.73 Personal history of transient ischemic attack (TIA), and cerebral infarction without residual deficits; Z95.2 Presence of prosthetic heart valve; Z96.642 Presence of left artificial hip joint; Z96.653 Presence of artificial knee joint, bilateral
CPT/HCPCS: 36415; 36600; 70450; 71045; 71260; 72125; 73562; 74177; 80053; 81003; 82140; 82570; 82805; 82948; 83036; 83690; 83735; 83880; 84156; 84484; 85018; 85025; 85055; 85610; 85730; 86038; 86039; 87637; 93005; 94640; 96361; 96374; 96375; 96376; 97110; 97161; 97165; 97530; 97535; 99285; A9270; G0378; J1815; J1939; J1940; J2270; J2310; J2405; J3010; J7030; J7040; Q9967

== ENCOUNTER 2024-09-21 11:56 | Inpatient (IN) | payer MEDICARE, SELFPAY ==
[2024-09-21 12:00] VITALS: PULSE 82; RESP 20; O2SAT 96
[2024-09-21 12:05] VITALS: BMI 36.3
--- NOTE | 2024-09-21 12:05 | ADMGEN ---
This patient, Mendez Lay, was admitted to 2nd Floor Room 205-2 as a skilled swing bed. Patient/family oriented to hospital policies and general routines including ID bracelet, bed and alarms, visiting hours, pain management, procedures, bathroom and other care routines, personal items, smoking policy, room service/diet, and visiting hours. Information on how to activate the Rapid Response Team has been discussed. Patient/Family are encouraged to report perceived risks to care and to ask questions if they do not understand what they are told or what they should do.
[2024-09-21 12:10] VITALS: BP 127/81; PULSE 75; RESP 18; TEMP 36.4; O2SAT 98
--- OUTSIDE RECORDS SUMMARY | 2024-09-21 12:47 | XMS_ITS ---
Author Organization [facility] Address [address] [place], [place] [id number] Care Team Providers Care Borderer Name Role Phone DonalRONALD baltazar Unavailable [phone] Megan Infante Unavailable Unavailable KARLA GUNN Unavailable [phone] REASON FOR VISIT *General care Medications Medication SIG (Take, Route, Frequency, Duration) Notes Start Date End Date Status Clotrimazole-Bet amethasone 1-0.05 % 1 application Externally Twice a day 07/06/2024 Active dofetilide 0.125 MG Oral Capsule [Tikosyn] ORAL dofetilide 0.125 MG Oral Capsule [Tikosyn]Original Medicationdofetilide 0.125 MG Oral Capsule [Tikosyn] [facility]* 09/10/2014 Active warfarin sodium 2 MG Oral Tablet [Coumadin] ORAL warfarin sodium 2 MG Oral Tablet [Coumadin]Original Medicationwarfarin sodium 2 MG Oral Tablet [Coumadin] *Reorder from [facility] for eRx and Interaction Alerts* 09/10/2014 Active glipiZIDE 5 MG Oral Tablet ORAL glipizide 5 MG Oral TabletOriginal Medicationglipizide 5 MG Oral Tablet *Reorder from [facility] for eRx and Interaction Alerts* 09/10/2014 Active Encounters Encounter Location Date Provider Diagnosis [facility] [address], [place] [id number] 07/06/2024 KARLA GUNN Tinea unguium B35.1 ; Pain in right toe(s) M79.674 ; Pain in left toe(s) M79.675 ; Unspecified atherosclerosis of ely shosh[place] arteries of extremities, bilateral legs I70.203 ; [...] (ICD-10 - M79.675) 07/06/2024 Unspecified atherosclerosis of ely shosh[place] arteries of extremities, bilateral legs (ICD-10 - [...] OTC and prescription treatments. Unspecified atherosclerosis of ely shosh[place] arteries of extremities, bilateral legs Patient educated [...] Appt Details Follow Up: 3 Months, Reason: Progress Notes * OBIE SIMS RDOB:1955 (68 yo M)Acc No.[id number]:07/06/2024 Patient:?OBIE SIMS Provider:?KARLA GUNN :1955???Age:68 Y???Sex:Male Stevenson e:07/06/2024 Address:[address] [place] [address] Subjective: * Chief Complaints: * ???1. *General care. * HPI: ???HPI:?General care?Patient presents to the office for diabetic foot care. Patient states that their nails are thickened, elongated and painful. Patient states that it is aggravated by shoe gear. Onset is gradual., Patient is taking prescription blood thinners., Date last seen by Dr. Infante was 06/2024., Initials mca.? * ROS:?General / Constitutional:?Patient denies?weakness.?Respiratory:?Patient denies?chronic cough, shortness of breath, sputum production.?Cardiovascular:?Patient denies?chest pain, history of GA, irregular heartbeat.?Musculoskeletal:?Patient denies?arthritis, joint stiffness.?Peripheral Vascular:?Patient denies?blanching of skin, cold extremities, decreased sensation in extremities.?Skin:?Patient complains of?fungal nails, discoloration, dry skin, nail changes.?Neurologic:?Patient denies?dizziness, gait abnormality, headache.? * Medical History:? * Medications:?Taking glipiZID E 5 MG Oral Tablet ORAL , Notes to Pharmacist: glipizide 5 MG Oral TabletOriginal Medicationglipizide 5 MG Oral Tablet *Reorder from [facility] for eRx and Interaction Alerts*, Taking dofetilide 0.125 MG Oral Capsule [Tikosyn] ORAL , Notes to Pharmacist: dofetilide 0.125 MG Oral Capsule [Tikosyn]Original Medicationdofetilide 0.125 MG Oral Capsule [Tikosyn] *Reorder from [facility] for eRx and Interaction Alerts*, Taking warfarin sodium 2 MG Oral Tablet [Coumadin] ORAL , Notes to Pharmacist: warfarin sodium 2 MG Oral Tablet [Coumadin]Original Medicationwarfarin sodium 2 MG Oral Tablet [Coumadin] *Reorder from [facility] for eRx and Interaction Alerts* Objective: * [...] in left toe(s) - M79.675???4.?Unspecified atherosclerosis of ely sh[place] arteries of extremities, bilateral legs - I70.203???5.?Xerosis cutis - L85.3???6.?Type 2 diabetes mellitus with diabetic peripheral angiopathy without gangrene - E11.51??? Plan: * Treatment: 2.?Unspecified atheroscleros is of ely shoshone arteries of extremities, bilateral legs? Notes: Patient [...] a day, 1, Refills 2.?? * Procedure Codes:?79532 DEBRI DE NAIL, 6 OR MORE, Modifiers: Q8 * Follow Up:?3 Months * Billing Information: * Visit Code:? * Procedure Codes:? 95648 DEBRIDE NAIL, 6 OR MORE. Modifiers: Q8 * E PULLER Sign off status: Completed true * Provider:DOMENICO GUNN Date:?07/06/2024 Generated for Katiana watson/Kaitlyn/Mindy on:?09/21/2024 12:47 PM LATHE PULLER History and Physical Notes * HPI (History [...] seen by Dr. Infante was 06/2024., Initials mca Examination Category Sub-Category Detail Notes [...]
--- OUTSIDE RECORDS SUMMARY | 2024-09-21 12:47 | XMS_ITS | Clinical Summary ---
Author Organization Unknown Care Team Providers Care Event Marketing Intern Name Role Phone MASHA PINEDA Unavailable Unavailable CONVENT STATION PHYSICAL THERAPIST, EMILE Unavailabl e Unavailable SOUTH SUTTON BROKE BEATER OPERATOR, MONICA Unavail able Unavailable CHUCHO REGISTERED NURSE, HILDA Unavailable Unavailable Payers Payer Name Policy Type Policy Number Effective Date Expira tion Date [employer] MEDICARE ADVANTAGE - EPISODIC Problems Condition Name Condition Details Condition Category Status Onset Date Resolution Date Last Treatment Date Treating Clinician Comments HYPERTENSIVE HEART DISEASE WITH HEART FAILURE Active 08-23 00:00: 00 CHRONIC COMBINED SYSTOLIC AND DIASTOLIC HRT FAIL Active 2023-08 220 00:00: 00 TYPE 2 DIABETES MELLITUS WITH [...] 08-23 00:00: 00 OLD MYOCARDIAL INFARCTION Active 08-23 00:00: 00 OTHER SPECIFIED CHRONIC OBSTRUCTIVE PULMONARY DISEASE Active - 00:00: 00 MILD INTERMITTENT ASTHMA, UNCOMPLICATE D Active - 00:00: 00 PULMONARY HYPERTENSION , UNSPECIFIED Active 08-23 00:00: 00 MIXED HYPERLIPIDEM IA Active 08-23 00:00: 00 ANXIETY DISORDER, UNSPECIFIED Active 08-23 00:00: 00 ATHSCL HEART DISEASE OF [place] CORONARY ARTERY W/O ANG PCTRS Active 08-23 [...] OF NICOTINE DEPENDENCE Active 08-23 00:00: 00 OPERATIONS AGENT (CURRENT) USE OF ASPIRIN Active 08-23 00:00: 00 INTERMEDIATE (CURRENT) USE OF ORAL HYPOGLYCEMIC DRUGS Active 08-23 00:00: 00 LNG TRM (CRNT) USE INJECTABLE NON-INSULIN ANTIDIABETIC DRUGS Active 08-23 00:00: 00 OPERATIONS AGENT (CURRENT) USE OF ANTICOAGULAN TS Active 08-23 00:00: 00 OPERATIONS AGENT (CURRENT) USE OF INHALED STEROIDS Active 08-23 [...] 03-01 00:00: 00 08-17 23:59 :00 No [id number] GOUT 1 tablet ONCE DAILY 1 tablet ONCE DAILY (route: oral) Med Classific ation: Gout and Hyperuric emia Therapy aspirin 81 mg tablet,brandon yed release 03-01 00:00: 08-17 23:59 :00 No [id number] CAD 1 tablet ONCE DAILY 1 tablet ONCE DAILY (route: oral) Med Classific ation: Hematolog ical Agents atorvastati n 80 mg tablet 03-01 00:00: 00 08-17 23:59 :00 No [id number] HLD 1 tablet ONCE DAILY 1 tablet ONCE DAILY (route: oral) Med Classific ation: Cardiovas cular Therapy Agents carvedilol 3.125 mg tablet 03-01 00:00: 00 08-17 23:59 :00 No [id number] CAD 1 tablet TWICE DAILY 1 tablet TWICE DAILY (route: oral) Med Classific ation: Cardiovas cular Therapy Agents dicloxacill in 500 mg capsule 02-24 00:00: 00 03-05 23:59 :00 No [id number] CELLULITIS 1 capsule 4 TIMES DAILY 1 capsule 4 TIMES DAILY (route: oral) Med Classific ation: Anti-Infe ctive Agents docusate sodium 100 mg capsule 03-01 00:00: 08-17 23:59 :00 No [id number] CONSTIPATIO N 1 capsule TWICE DAILY 1 capsule TWICE DAILY (route: oral) Med Classific ation: Gastroint estinal Therapy Agents Entresto 24 mg-26 mg tablet 03-01 00:00: 08-17 23:59 :00 No [id number] CHF 1 tablet TWICE DAILY 1 tablet TWICE DAILY (route: oral) Med Classific ation: Cardiovas cular Therapy Agents ferrous sulfate 325 mg (65 mg iron) tablet 03-01 00:00: 00 08-17 23:59 :00 No [id number] ANEMIA 1 tablet ONCE DAILY 1 tablet ONCE DAILY (route: oral) Med Classific ation: Electroly te Balance-N utritiona l Products furosemide 40 mg tablet 03-01 00:00: 00 08-17 23:59 :00 No [id number] CHF 1 tablet TWICE DAILY 1 tablet TWICE DAILY (route: oral) Med Classific ation: Cardiovas cular Therapy Agents gabapentin 400 mg capsule 03-01 00:00: 08-17 23:59 :00 No [id number] NEUROPATHY 1 capsule TWICE DAILY 1 capsule TWICE DAILY (route: oral) Med Classific ation: Central Nervous System Agents glipizide 5 mg tablet 03-01 00:00: 00 08-17 23:59 :00 No [id number] DM 1 tablet ONCE DAILY 1 tablet ONCE DAILY (route: oral) Med Classific ation: Endocrine hydrocodone 7.5 mg-acetamin ophen 325 mg tablet 03-01 00:00: 00 08-17 23:59 :00 No [id number] PAIN 1 tablet 3 TIMES DAILY 1 tablet 3 TIMES DAILY (route: oral) Med Classific ation: Analgesic , Anti-infl ammatory or Antipyret ic hydroxyzine HCl 50 mg tablet 03-01 00:00: 00 08-17 23:59 :00 No [id number] ITCHING 2 tablet 3 TIMES DAILY 2 tablet 3 TIMES DAILY (route: oral) Med Classific ation: Central Nervous System Agents Jardiance 25 mg tablet 03-01 00:00: 00 08-17 23:59 :00 No [id number] DM 1 tablet ONCE DAILY 1 tablet ONCE DAILY (route: oral) Med Classific ation: Endocrine OXYGEN 03-01 00:00: 08-17 23:59 :00 No [id number] HYPOXIA 2-3 Liter NEEDED 2-3 Liter NEEDED (route: Oxygen) Med Classific ation: Medical Oxygen Ozempic 1 mg/dose (4 mg/3 mL) subcutaneou s pen injector 03-01 00:00: 00 08-17 23:59 :00 No [id number] DM 1 mg WEEKLY 1 mg WEEKLY (route: subcutaneo us) Med Classific ation: Endocrine pantoprazol e 40 mg tablet,brandon yed release 03-01 00:00: 00 08-17 23:59 :00 No [id number] GERD 1 tablet ONCE DAILY 1 tablet ONCE DAILY (route: oral) Med Classific ation: Gastroint estinal Therapy Agents potassium chloride ER 20 mEq tablet,exte nded release 03-01 00:00: 00 08-17 23:59 :00 No [id number] HYPOKALEMIA 1 tablet ONCE DAILY 1 tablet ONCE DAILY (route: oral) Med Classific ation: Electroly te Balance-N utritiona l Products ropinirole 2 mg tablet 03-01 00:00: 00 08-17 23:59 :00 No [id number] RLS 2 tablet AT BEDTIME 2 tablet AT BEDTIME (route: oral) Med Classific ation: Central Nervous System Agents sertraline 50 mg tablet 03-01 00:00: 00 08-17 23:59 :00 No [id number] DEPRESSION 1 tablet ONCE DAILY 1 tablet ONCE DAILY (route: oral) Med Classific ation: Central Nervous System Agents spironolact one 25 mg tablet 03-01 00:00: 00 08-17 23:59 :00 No [id number] CH 1 tablet ONCE DAILY 1 tablet ONCE DAILY (route: oral) Med Classific ation: Cardiovas cular Therapy Agents tamsulosin 0.4 mg capsule 03-01 00:00: 00 08-17 23:59 :00 No [id number] URINARY RETENTION 1 capsule ONCE DAILY 1 capsule ONCE DAILY (route: oral) Med Classific ation: Genitouri nary Therapy trazodone 150 mg tablet 03-01 00:00: 00 08-17 23:59 :00 No [id number] INSOMNIA 1 tablet AT BEDTIME 1 tablet AT BEDTIME (route: oral) Med Classific ation: Central Nervous System Agents Tresiba FlexTouch U-200 insulin 200 unit/mL (3 mL) subcutaneou s pen 03-01 00:00: 00 08-17 23:59 :00 No [id number] DM 30 unit ONCE DAILY 30 unit ONCE DAILY (route: subcutaneo us) Med Classific ation: Endocrine Ventolin HFA 90 mcg/actuati on aerosol inhaler 03-01 00:00: 00 08-17 23:59 :00 No [id number] WHEEZING/SH ORTNESS OF BREATH 1 puff EVERY 4 HOURS 1 puff EVERY 4 HOURS (route: inhalation ) Med Classific ation: Respirato ry Therapy Agents warfarin 1 mg tablet 03-01 00:00: 00 08-17 23:59 :00 No [id number] AFIB 1 tablet AT BEDTIME 1 tablet AT BEDTIME (route: oral) Med Classific ation: Hematolog ical Agents warfarin 5 mg tablet 03-01 00:00: 00 08-17 23:59 :00 No [id number] AFIB 1 tablet AT BEDTIME 1 tablet AT BEDTIME (route: oral) Med Classific ation: Hematolog ical Agents albuterol sulfate HFA 90 mcg/actuati on aerosol inhaler 2023-08 00:00: 00 Yes [id number] WHEEZING 2 puff EVERY 4 HOURS 2 puff EVERY 4 HOURS (route: inhalation ) Med Classific ation: Respirato ry Therapy Agents allopurinol 300 mg tablet 2023-08 00:00: 00 Yes [id number] GOUT 1 tablet DAILY 1 tablet DAILY (route: oral) Med Classific ation: Gout and Hyperuric emia Therapy aspirin 81 mg tablet,brandon yed release 2023-08 00:00: 00 Yes [id number] BLOOD CLOT PREVENTION 1 tablet DAILY 1 tablet DAILY (route: oral) Med Classific ation: Hematolog ical Agents carvedilol 3.125 mg tablet 2023-08 00:00: 00 Yes [id number] HTN 1 tablet 2 TIMES DAILY 1 tablet 2 TIMES DAILY (route: oral) Med Classific ation: Cardiovas cular Therapy Agents Colace 100 mg capsule 2023-08 00:00: 00 Yes [id number] CONSTIPATIO N 1 capsule DAILY 1 capsule DAILY (route: oral) Med Classific ation: Gastroint estinal Therapy Agents cyclobenzap rine 10 mg tablet 2023-08 00:00: 00 Yes [id number] BPH 1 tablet DAILY 1 tablet DAILY (route: oral) Med Classific ation: Locomotor System Entresto 24 mg-26 mg tablet 2023-08 00:00: 00 Yes [id number] HF 1 tablet 2 TIMES DAILY 1 tablet 2 TIMES DAILY (route: oral) Med Classific ation: Cardiovas cular Therapy Agents folic acid 1 mg tablet 2023-08 00:00: 00 Yes [id number] SUPPLEMENT 1 tablet DAILY 1 tablet DAILY (route: oral) Med Classific ation: Electroly te Balance-N utritiona l Products gabapentin 400 mg capsule 2023-08 00:00: 00 Yes [id number] NEUROPATHY 1 capsule 2 TIMES DAILY 1 capsule 2 TIMES DAILY (route: oral) Med Classific ation: Central Nervous System Agents glipizide 5 mg tablet 2023-08 00:00: 00 Yes [id number] DIABETES 1 tablet DAILY 1 tablet DAILY (route: oral) Med Classific ation: Endocrine hydrocodone 10 mg-acetamin ophen 325 mg tablet 2023-08 00:00: 00 Yes [id number] PAIN 1 tablet EVERY 6 HOURS 1 tablet EVERY 6 HOURS (route: oral) Med Classific ation: Analgesic , Anti-infl ammatory or Antipyret ic hydroxyzine HCl 50 mg tablet 2023-08 00:00: 00 Yes [id number] ITCHING 2 tablet 3 TIMES DAILY 2 tablet 3 TIMES DAILY (route: oral) Med Classific ation: Central Nervous System Agents Jardiance 25 mg tablet 2023-08 00:00: 00 Yes [id number] DIABETES 1 tablet DAILY 1 tablet DAILY (route: oral) Med Classific ation: Endocrine Lasix 80 mg tablet 2023-08 00:00: 00 Yes [id number] FLUID RETENTION 1 tablet DAILY 1 tablet DAILY (route: oral) Med Classific ation: Cardiovas cular Therapy Agents oxygen gas for inhalation 2023-08 00:00: 00 08-21 23:59 :00 No [id number] OXYGENATION 2 Liter O2 - PRN 2 Liter O2 - PRN (route: inhalation ) Med Classific ation: Medical Supplies and Durable Medical Equipment (DME) Ozempic 1 mg/dose (4 mg/3 mL) subcutaneou s pen injector 2023-08 00:00: 00 Yes [id number] DIABETES 1 mg WEEKLY 1 mg WEEKLY (route: subcutaneo us) Med Classific ation: Endocrine pregabalin 150 mg capsule 2023-08 00:00: 00 Yes [id number] MUSCLE PAIN 1 capsule 2 TIMES DAILY 1 capsule 2 TIMES DAILY (route: oral) Med Classific ation: Central Nervous System Agents sertraline 50 mg tablet 2023-08 00:00: 00 Yes [id number] DEPRESSION 1 tablet DAILY 1 tablet DAILY (route: oral) Med Classific ation: Central Nervous System Agents trazodone 150 mg tablet 2023-08 00:00: 00 Yes [id number] DEPRESSION 2 tablet DAILY 2 tablet DAILY (route: oral) Med Classific ation: Central Nervous System Agents Trelegy Ellipta 100 mcg-62.5 mcg-25 mcg powder for inhalation 2023-08 00:00: 00 Yes [id number] SHORTNESS OF BREATH 1 inhalat ion DAILY 1 inhalation DAILY (route: inhalation ) Med Classific ation: Respirato ry Therapy Agents warfarin 4 mg tablet 2023-08 00:00: 00 Yes [id number] BLOOD CLOT PREVENTION 1 tablet DAILY 1 tablet DAILY (route: oral) Med Classific ation: Hematolog ical Agents oxygen gas for inhalation 2023-08 00:00: 00 Yes [id number] OXYGENATION 2 Liter O2 - PRN 2 [...] 68 mm [Hg] Diastolic Blood Pressure 2024-08-21 13:20:00.000 82 mm [Hg] Diastolic Blood Pressure 2024-08-20 [...] THE CERTIFIED CARE PLAN: JOSE A CASPER NP [code = EACH ORDERED IN-HOME OR TELEHEALTH [...] THE CERTIFIED CARE PLAN: JOSE A CASPER NP ] Future Scheduled Test HOME HEALT H [...] BREATH, OR FATIGUE.] Future Scheduled Test SKILLED PATRICE RSE TO OBSERVE AND ASSESS PATIENT WITH GENERALIZED DEPRESSION AND TEACH DEPRESSIVE SYMPTOMS. [code = SKILLED NURSE TO OBSERVE AND ASSESS PATIENT WITH GENERALIZED DEPRESSION AND TEACH DEPRESSIVE SYMPTOMS.] Future [facility] WILL INSTRUCT PATIENT/CAREGIVER ON TYPE 2 [...] LOW BLOOD SUGAR.] Future Scheduled Test [facility] N[facility]SE WILL INSTRUCT AND VERIFY APPROPRIATE STEPS [...] TIMES PER DAY.] Future Scheduled Test [facility] TO INSTRUCT PATIENT/CAREGIVER ON THE TYPE [...] THE WEEK. ] Future Scheduled Test [facility] N[facility]SE WILL ASSESS FOR COMPLICATIONS RELATED TO [...] WILL BE ESTABLISHED THAT MEETS ALL PATIENT'S CUSTODIAL NEEDS AND COUNTER SIGNED BY PHYSICIAN. Goal [...] HOME HEALTH SERVICES. Goal Provider Goal - Encounters Start Date/Time End Date/Time Encounter Type Admission Type Attending [facility] Care Department Encounter ID Discharge Date Discharge Status Discharge Condition Discharge Reason Percent Goals Met 2024-08-20 00:00:00 2024-10-18 00:00:00 Outpatient HILDA ANTUNEZ [facility] [id number]
--- OUTSIDE RECORDS SUMMARY | 2024-09-21 12:48 | XMS_ITS | Encounter Summary ---
Author Organization [facility] Address [facility] [place] [address] [place] [address] Care Team Providers Care Bridge Opener Name Role Phone Piyush Pandey MD Unavailable Unavailabl e Megan Infante MD Primary Care Provider [phone] Sharmila Davis APRN, AQUATICS COORDINATOR-C Unavailable Linda Block MD Unavailable [phone] Jeff Grace MD Unavailable Zaki Ortiz MD Unavailable [phone] Romeo-Concetta Pond MD Unavailable [phone] Jeff Grace MD Unavailable Brit Gonzáles MD Unavailable Encounter Details Date Type Department Care Team (Late st Contact Info) Description 01/02/2022 Abstract [facility] [address] [place] [phone] Sharmila Davis APRN, AQUATICS COORDINATOR-C [address] [facility] [address] [place] [phone] Social History Tobacco Use Types Packs/Day Years [...] Information Value Date Recorded Sex Assigned at Male 09/07/2024 10:18 PM SHELL SIEVE OPERATOR Legal Sex Male 10:01 PM CDT Gender Identity Male 09/07/2024 10:18 PM SHELL SIEVE OPERATOR Sexual Orientation Straight 09/07/2024 10 :18 PM SHELL SIEVE OPERATOR Occupation Industry Job Start Date Job End [...] st Contact Info) Description 09/25/2024 2:00 PM SHELL SIEVE OPERATOR Appointment [facility] [address] [place] [address] Zayra Powell, [facility] [address] [place] [address] 10/16/2024 3:30 PM SHELL SIEVE OPERATOR Office Visit [facility] [address] [place] [address] Brit Gonzáles MD [address] [place] [address] documented as of this encounter Procedures Procedure [...] documented as of this encounter Care Teams Bridge Opener Relationship Specialty Start Date End Date Megan Infante MD [address] [place] [address] PCP - General FAMILY PRACTICE 04/06/16 Piyush Pandey MD [place] Nail Polish Brush Machine Feeder CARDIOVASCULAR DISEASE 04/06/16 12/28/23 Sharmila Davis, SHADE HANGER, AQUATICS COORDINATOR-C [address] [facility] [address] [place] [phone] NURSE PRACTITIONER 01/04/17 04/03/24 Linda Block MD [address] [facility] [address] [phone] [place] Nail Polish Brush Machine Feeder CLINICAL CARDIAC ELECTROPHYSIOLOGY 02/08/17 04/12/23 Jeff Grace MD [address] [facility] [address] [phone] Consulting Physician INTERNAL MEDICINE 02/20/19 3 Zaki Ortiz MD [address] [facility] [address] [place] [phone] Consulting Physician PULMONARY DISEASE 07/12/19 Concetta Acevedo MD [address] [place] [address] Surgeon NEUROLOGICAL SURGERY 12/16/22 Jeff Grace MD [address] [place] [address] Consulting Physician INTERNAL MEDICINE 02/11/23 Brit Gonzáles MD [address] [place] [address] Consulting Physician CARDIOVASCULAR DISEASE 12/29/23 documented as of this encounter
--- OUTSIDE RECORDS SUMMARY | 2024-09-21 12:48 | XMS_ITS | Encounter Summary ---
Author Organization [facility] Address [facility] [facility] [place] [address] [place] [address] Care Team Providers Care Blooming Mill Supervisor Name Role Phone Piyush Pandey MD Unavailable Unavailabl e Megan Infante MD Primary Care Provider [phone] Sharmila Davis APRN, ENGRAVER RUBBER-C Unavailable Linda Block MD Unavailable [phone] Jeff Grace MD Unavailable Zaki Ortiz MD Unavailable [phone] RomeoConcetta Pond MD Unavailable [phone] Jeff Grace MD Unavailable Brit Gonzáles MD Unavailable Encounter Details Date Type Department Care Team (Late st Contact Info) Description 01/21/2023 Abstract [facility] [address] [place] [phone] Sharmila Davis APRN, ENGRAVER RUBBER-C [address] [facility] [address] [place] [address] Social History Tobacco Use Types [...] Sex Assigned at Male 09/07/2024 10:18 PM SAFETY EQUIPMENT TESTER Legal Sex Male 10:01 PM CDT Gender Identity Male 09/07/2024 10:18 PM SAFETY EQUIPMENT TESTER Sexual Orientation Straight 09/07/2024 10 :18 PM SAFETY EQUIPMENT TESTER Occupation Industry Job Start Date Job End [...] Contact Info) Description 09/25/2024 2:00 PM SAFETY EQUIPMENT TESTER Appointment [facility] [address] [place] [address] Zayra Powell, [facility] [address] [place] [address] 10/16/2024 3:30 PM SAFETY EQUIPMENT TESTER Office Visit [facility] [address] [place] [address] Brit Gonzáles MD [address] [place] [address] documented as of this encounter Visit Diagnoses Not on filedocumented in this encounter Additional Health Concerns Assessment Noted Time PHQ-9 Depression Total Score: 0 12/02/19 22 1:18 PM CDT documented as of this encounter Care Teams Blooming Mill Supervisor Relationship Specialty Start Date End Date Megan Infante MD [address] [place] [address] PCP - General FAMILY PRACTICE 04/06/16 Piyush Pandey MD [place] Clinical Account Manager CARDIOVASCULAR DISEASE 04/06/16 12/28/23 Sharmila Davis APRN, ENGRAVER RUBBER-C [address] [facility] [address] [phone] NURSE PRACTITIONER 01/04/17 04/03/24 Linda Block MD [address] [facility] [address] [phone] [place] Clinical Account Manager CLINICAL CARDIAC ELECTROPHYSIOLOGY 02/08/17 04/12/23 Jeff Grace MD [address] [facility] [address] [phone] Consulting Physician INTERNAL MEDICINE 02/20/19 3 Zaki Ortiz MD [address] [facility] [address] [phone] Consulting Physician PULMONARY DISEASE 07/12/19 Concetta Acevedo MD [address] [place] [address] Surgeon NEUROLOGICAL SURGERY 12/16/22 Jeff Grace MD [address] [place], [place] [phone] Consulting Physician INTERNAL MEDICINE 02/11/23 Brit Gonzáles MD [address] [place], [place] [address] Consulting Physician CARDIOVASCULAR DISEASE 12/29/23 documented as of this encounter
--- OUTSIDE RECORDS SUMMARY | 2024-09-21 12:48 | XMS_ITS | Encounter Summary ---
Author Organization [facility] Address [facility] [facility] [place] [address] [place] [address] Care Team Providers Care Solar Installer Pv Name Role Phone Piyush Pandey MD Unavailable Unavailabl e Megan Infante MD Primary Care Provider [phone] Sharmila Davis APRN, NP-C Unavailable [phone] Linda Block MD Unavailable [phone] Zaki Ortiz MD Unavailable [phone] Romeo-Concetta Pond MD Unavailable [phone] Jeff Grace MD Unavailable Brit Gonzáles MD Unavailable Encounter Details Date Type Department Care Team (Late st Contact Info) Description 02/22/2023 Hospital Follow-up Call [facility] [address] [place] [address] Cara Potter, RN Social History [...] How often do you attend gnosticism or church serv ices? Patient declined 02/16/2023 [...] move on to questions 3-9 0 12/01/2021 [facility] [place] of Occupat ional Health - Occupational Stress [...] slept in a chcf (including now)? Patient refused 02/16/2023 Sex and Gender Information Value Date Recorded Sex Assigned at Male 09/07/2024 10:18 PM WELDER FABRICATOR Legal Sex Male 10:01 PM CDT Gender Identity Male 09/07/2024 10:18 PM WELDER FABRICATOR Sexual Orientation Straight 09/07/2024 10 :18 PM WELDER FABRICATOR Occupation Industry Job Start Date Job End [...] st Contact Info) Description 09/25/2024 2:00 PM WELDER FABRICATOR Appointment [facility] [address] [place] [address] Zayra Powell FNP [address] [place] [address] 10/16/2024 3:30 PM WELDER FABRICATOR Office Visit [facility] [address] [place] [phone] Brit Gonzáles MD [address] [place] [address] documented as of this encounter Goals Goal [...] documented as of this encounter Care Teams Solar Installer Pv Relationship Specialty Start Date End Date Megan Infante MD [address] [place] [phone] PCP - General FAMILY PRACTICE 04/06/16 Piyush Pandey MD [employer] Instrumentation Mechanic CARDIOVASCULAR DISEASE 04/06/16 12/28/23 Sharmila Davis APRN, HAND SOLE SEWER-C [address] [place] [phone] NURSE PRACTITIONER 01/04/17 04/03/24 Linda Block MD [address] [place] [phone] [employer] Instrumentation Mechanic CLINICAL CARDIAC ELECTROPHYSIOLOGY 02/08/17 04/12/23 Zaki Ortiz MD [address] [place] [phone] Consulting Physician PULMONARY DISEASE 07/12/19 Concetta Acevedo MD [address] [place] [address] Surgeon NEUROLOGICAL SURGERY 12/16/22 Jeff Grace MD [address] [place] [address] Consulting Physician INTERNAL MEDICINE 02/11/23 Brit Gonzáles MD [address] [place] [address] Consulting Physician CARDIOVASCULAR DISEASE 12/29/23 documented as of this encounter
--- OUTSIDE RECORDS SUMMARY | 2024-09-21 12:48 | XMS_ITS | Patient Health Record ---
Author Organization [facility] Address [address] [place], [place] [address] Care Team Providers Care Supervisor Electronics Processing Name Role Phone DonalRONALD baltazar Unavailable [phone] Megan Infante Unavailable Unavailable KARLA GUNN Unavailable [phone] Allergies No Known Allergies Reason For Referral No Information Medications Medication SIG (Take, Route, Frequency, Duration) Notes Start Date End Date Status Clotrimazole-Bet amethasone 1-0.05 % 1 application Externally Twice a day 07/06/2024 Active dofetilide 0.125 MG Oral Capsule [Tikosyn] ORAL dofetilide 0.125 MG Oral Capsule [Tikosyn]Original Medicationdofetilide 0.125 MG Oral Capsule [Tikosyn] *Reorder from [employer] for eRx and Interaction Alerts* 09/10/2014 Active warfarin sodium 2 MG Oral Tablet [Coumadin] ORAL warfarin sodium 2 MG Oral Tablet [Coumadin]Original Medicationwarfarin sodium 2 MG Oral Tablet [Coumadin] *Reorder from [employer] for eRx and Interaction Alerts* 09/10/2014 Active glipiZIDE 5 MG Oral Tablet ORAL glipizide 5 MG Oral TabletOriginal Medicationglipizide 5 MG Oral Tablet *Reorder from [employer] for eRx and Interaction Alerts* 09/10/2014 Active Immunizations Vaccine Route Administration Date Status Comme nts Influenza, high dose seasonal Unknown 06/04/2023 Admini stered Vital Signs Height-cm 167.64 cm 01/13/2024 Weight-kg 90.72 kg 01/13/2024 Height 66.00 in 01/13/2024 Weight 200 lbs 01/13/2024 BMI 32.28 kg/m2 01/13/2024 Encounters Encounter Location Date Provider Diagnosis [address] [id number] 09/07/2024 KARLA GUNN [facility] [address] [place], [place] [id number] 10/28/2023 KARLA GUNN Tinea unguium B35.1 ; Pain in right toe(s) M79.674 ; Pain in left toe(s) M79.675 ; Unspecified atherosclerosis of [place] arteries of extremities, bilateral legs I70.203 ; Xerosis cutis L85.3 and Type 2 diabetes mellitus with diabetic peripheral angiopathy without gangrene E11.[address] [id number] 01/13/2024 KARLA GUNN Tinea unguium B35.1 ; Pain in right toe(s) M79.674 ; Pain in left toe(s) M79.675 ; Unspecified atherosclerosis of [place] arteries of extremities, bilateral legs I70.203 ; Xerosis cutis L85.3 and Type 2 diabetes mellitus with diabetic peripheral angiopathy without gangrene E11.[address] [id number] 04/13/2024 KARLA GUNN Tinea unguium B35.1 ; Pain in right toe(s) M79.674 ; Pain in left toe(s) M79.675 ; Unspecified atherosclerosis of [place] arteries of extremities, bilateral legs I70.203 ; Xerosis cutis L85.3 and Type 2 diabetes mellitus with diabetic peripheral angiopathy without gangrene E11.[address] [id number] 07/06/2024 KARLA GUNN Tinea unguium B35.1 ; Pain in right toe(s) M79.674 ; Pain in left toe(s) M79.675 ; Unspecified atherosclerosis of [place] arteries of extremities, bilateral legs I70.203 ; [...] (ICD-10 - M79.675) 10/28/2023 Unspecified atherosclerosis of [place] arteries of extremities, bilateral legs (ICD-10 - I70.203) Patient educated on risks and aggravating factors of PVD, including conservative treatment options such as a diet and exercise regimen to aid in slowing progression of vascular disease 01/13/2024 Unspecified atherosclerosis of [place] arteries of extremities, bilateral legs (ICD-10 - I70.203) Patient educated on risks and aggravating factors of PVD, including conservative treatment options such as a diet and exercise regimen to aid in slowing progression of vascular disease 04/13/2024 Unspecified atherosclerosis of [place] arteries of extremities, bilateral legs (ICD-10 - I70.203) Patient educated on risks and aggravating factors of PVD, including conservative treatment options such as a diet and exercise regimen to aid in slowing progression of vascular disease 07/06/2024 Unspecified atherosclerosis of [place] arteries of extremities, bilateral legs (ICD-10 - [...] to nausea, vomiting, fever. Plan Of Treatment No Information Insurance Providers Payer Name Payer Address Payer Phone Subscriber Number Group Number Insured Name Patient Relationship to Insured Coverage Start Date Coverage End Date [employer] [address] [place] [address] [id number] OBIE SIMS Self - patient is the insured [address] [place] [address] [id number] OBIE SIMS Self - patient is the insured
--- OUTSIDE RECORDS SUMMARY | 2024-09-21 12:50 | XMS_ITS | Encounter Summary ---
Author Organization [facility] Address [facility] [place] [address] [place] [address] Care Team Providers Care Glassware Selector Name Role Phone Megan Infante MD Primary Care Provider [phone] Zaki Ortiz MD Unavailable [phone] Romeo-Concetta Pond MD Unavailable + [phone] Jeff Grace MD Unavailable Brit Gonzáles MD Unavailable Reason for Referral * (Routine) - New Request Specialty Diagnoses / Procedures Referred By Contcarmen t Referred To Contact Diagnoses NSVT (nonsustained ventricular tachycardia) ([facility]) Procedures CLINIC - [address] [facility] - Today Brit Gonzáles MD [address] [place] [address] Phone: tel: fax: Referral ID Status Reason Start Date Expiration Date V isits Requested Visits Authorized [id number] New Request 09/21/2024 09/21/2025 1 1 R RACER Encounter Details Date Type Department Care Team (Late st Contact Info) Description 09/21/2024 Orders Only [facility] [address] [place] [address] Brit Gonzáles MD [address] [place] [address] Social History Tobacco Use Types Packs/Day Years Used Date Smoking Tobacco: Former Passive Smoke Exposure: Past Smokeless Tobacco: Former Chew Alcohol Use Standard Drinks/Week Comments Yes 0 (1 standard drink = 0.6 oz pur e alcohol) 4 beers per week [facility] Utilities Answer Date Recorded In the past 12 months has th e [employer], gas, oil, or water company threatened to [...] How often do you attend congregational or baptism serv ices? Patient declined 02/16/2023 [...] [facility] - Occupational Stress Questionnaire Answer Date [...] any time in the past 12 m [facility], were you homeless or living in a intermediate (including now)? No 08/31/2024 Sex and Gender Information Value Date Recorded Sex Assigned at Male 09/07/2024 10:18 PM MOTOR RACER Legal Sex Male 10:01 PM CDT Gender Identity Male 09/07/2024 10:18 PM MOTOR RACER Sexual Orientation Straight 09/07/2024 10 :18 PM MOTOR RACER Occupation Industry Job Start Date Job End Date Not on file Not on file Not on file Not on file documented as of this encounter Functional Status * Are you deaf or do you have serious difficulty hearing Answer Date of Assessment Author Status No 08/31/2024 10:00 AM Yarelis Ingram RN Active * Are you blind or do you have serious difficulty seeing, even when wearing glasses? Answer Date of Assessment Author Status No 08/31/2024 10:00 AM Yarelis Ingram RN Active * Do you have serious difficulty walking or climbing stairs? Answer Date of Assessment Author Status Yes 08/31/2024 10:00 AM Yarelis Ingram RN Active * Do you have difficulty dressing or bathing? Answer Date of Assessment Author Status No 08/31/2024 10:00 AM Yarelis Ingram RN Active * Because of a physical, mental, or emotional condition, do you have difficulty doing errands alone such as visiting a doctor's office or shopping? Answer Date of Assessment Author Status No 08/31/2024 10:00 AM Yarelis Ingram RN Active documented as of this encounter Mental Status * Because of a physical, mental, or emotional condition, do you have serious difficulty concentrating, remembering, or making decisions? Answer Entry Date Author Status No 08/31/2024 10:00 AM Yarelis Ingram RN Active documented in this encounter Plan of Treatment Upcoming Encounters Date Type Department Care Team (Late st Contact Info) Description 09/25/2024 2:00 PM MOTOR RACER Appointment [facility] [address] [place] [address] Zayra Powell, PRODUCTION SUPERINTENDENT [address] [place] [address] 10/16/2024 3:30 PM MOTOR RACER Office Visit [facility] [address] [place] [phone] Brit Gonzáles MD [address] [place], [place] [address] Scheduled Orders Name Type Priority Associated Diagnoses Orde r Schedule [facility] - [address] [facility] - Today EKG-NonRad Routine NSVT (nonsustained ventricular tachycardia) ([facility]) Expected: 09/21/2024, Expires: 09/21/2025 documented as of this encounter Goals Goal Patient Goal Type Associated Problems Recent Progress Patient-Stated? Author Family - family caregiver with be involved in care transitions and discharge planning Lifestyle No Karen Quezada RN documented as of this encounter Visit Diagnoses Diagnosis NSVT (nonsustained ventricular tachycardia) ([facility])- Primary Paroxysmal ventricular tachycardia documented in this encounter Additional Health Concerns Assessment Noted Time PHQ-9 Depression Total Score: 0 12/02/19 22 1:18 PM CDT documented as of this encounter Care Teams Glassware Selector Relationship Specialty Start Date End Date Megan Infante MD [address] [place] [address] PCP - General FAMILY PRACTICE 04/06/16 Zaki Ortiz MD [address] [facility] [place] [address] Consulting Physician PULMONARY DISEASE 07/12/19 Concetta Acevedo MD [address] [place] [address] Surgeon NEUROLOGICAL SURGERY 12/16/22 Jeff Grace MD [address] [place] [phone] Consulting Physician INTERNAL MEDICINE 02/11/23 Brit Gonzáles MD [address] [place], [place] [address] Consulting Physician CARDIOVASCULAR DISEASE 12/29/23 documented as of this encounter
--- OUTSIDE RECORDS SUMMARY | 2024-09-21 12:50 | XMS_ITS | Encounter Summary ---
Author Organization [facility] Address [address] [place] [address]. [place] [address] [place] [address] Care Team Providers Care Escrow Secretary Name Role Phone Piyush Pandey MD Unavailable Unavailabl e Megan Infante MD Primary Care Provider [phone] Sharmila Davis APRN THREAD SPINNER-C Unavailable [phone] Linda Block MD Unavailable [phone] Jeff Grace MD Unavailable Zaki Ortiz MD Unavailable [phone] Concetta Acevedo MD Unavailable + [phone] Jeff Grace MD Unavailable Brit Gonzáles MD Unavailable Encounter Details Date Type Department Care Team (Late st Contact Info) Description 11/06/2017 Abstract [facility] [address] [place] [address] , Generic Conversion, Social History Tobacco Use Types Packs/Day Years Used Date Smoking Tobacco: Former Smokeless Tobacco: Former Chew Alcohol Use Standard Drinks/Week Comments Yes 0 (1 standard drink = 0.6 oz pur e alcohol) 6 per week Sex and Gender Information Value Date Recorded Sex Assigned at Male 09/07/2024 10:18 PM TRANSMISSION ASSEMBLER Legal Sex Male 10:01 PM CDT Gender Identity Male 09/07/2024 10:18 PM TRANSMISSION ASSEMBLER Sexual Orientation Straight 09/07/2024 10 :18 PM TRANSMISSION ASSEMBLER Occupation Industry Job Start Date Job End Date Not on file Not on file Not on file Not on file documented as of this encounter Plan of Treatment Upcoming Encounters Date Type Department Care Team (Late st Contact Info) Description 09/25/2024 2:00 PM TRANSMISSION ASSEMBLER Appointment [facility] [address] [place] [address] Zayra Powell, CONSTRUCTION PROJECT MGR [address] [place], [place] [phone] 10/16/2024 3:30 PM TRANSMISSION ASSEMBLER Office Visit [facility] [address] [place] [address] Brit Gonzáles MD [address] [place], [place] [phone] documented as of this encounter Visit Diagnoses Not on filedocumented in this encounter Additional Health Concerns Infection Onset Date Last Indicated Resolved Time COVID-19 Rule Out 03/02/2020 03/02/2020 03/03/2020 8:23 PM CDT COVID-19 Rule Out 07/03/2020 07/03/2020 07/04/2020 11:25 PM TRANSMISSION ASSEMBLER COVID-19 Rule Out 09/07/2020 09/07/2020 09/08/2020 5:52 PM TRANSMISSION ASSEMBLER COVID-19 Rule Out 10/05/2020 10/05/2020 10/06/2020 11:37 AM TRANSMISSION ASSEMBLER COVID-19 Rule Out 02/08/2021 02/08/2021 02/08/2021 9:06 PM CDT COVID-19 Rule Out 01/24/2022 01/24/2022 01/24/2022 6:41 PM CDT COVID-19 Rule Out 01/04/2023 01/04/2023 01/04/2023 10:12 AM CDT documented as of this encounter Care Teams Escrow Secretary Relationship Specialty Start Date End Date Megan Infante MD [address] [place] [phone] PCP - General FAMILY PRACTICE 04/06/16 Piyush Pandey MD [employer] CARDIOVASCULAR DISEASE 04/06/16 12/28/23 Sharmila Davis, DANNY, THREAD SPINNER-C [address] [phone] NURSE PRACTITIONER 01/04/17 04/03/24 Linda Block MD [address] [place] [phone] [employer] CLINICAL CARDIAC ELECTROPHYSIOLOGY 02/08/17 04/12/23 Jeff Grace MD [address] [phone] Consulting Physician INTERNAL MEDICINE 02/20/19 3 Zaki Ortiz MD [address] [place] [phone] Consulting Physician PULMONARY DISEASE 07/12/19 Concetta Acevedo MD [address] [place] [address] Surgeon NEUROLOGICAL SURGERY 12/16/22 Jeff Grace MD [address] [place], [place] [address] Consulting Physician INTERNAL MEDICINE 02/11/23 Brit Gonzáles MD [address] [place] [address] Consulting Physician CARDIOVASCULAR DISEASE 12/29/23 documented as of this encounter
--- OUTSIDE RECORDS SUMMARY | 2024-09-21 12:50 | XMS_ITS | Clinical Summary ---
Author Organization [facility] Address [address] [place] [address] [place] [address] Care Team Providers Care Rn Resource Nurse Name Role Phone Megan Infante MD Primary Care Provider [phone] Zaki Ortiz MD Unavailable [phone] Concetta Acevedo MD Unavailable + [phone] Jeff Grace MD Unavailable Brit Gonzáles MD Unavailable Allergies No known active allergies Medications albuterol sulfate HFA 108 (90 Base) MCG/ACT inhaler Inhale 2 puffs into the lungs every 4 (four) hours as needed. 11/14/19 16 Active atorvastatin 80 MG tablet Take 1 tablet (80 mg total) by mouth nightly at bedtime. 01/01/20 17 Active allopurinol 300 MG tablet Take 1 tablet (300 mg total) by mouth daily. 02/18/20 19 Active sertraline 50 MG tablet Take 1 tablet (50 mg total) by mouth daily. 10/03/19 22 Active pantoprazole EC 40 MG tablet Take 1 tablet (40 mg total) by mouth daily. Active docusate sodium 100 MG capsule Take 1 capsule (100 mg total) by mouth as needed for Constipation. Active traZODone (DESYREL) 150 MG tablet Take 2 tablets (300 mg total) by mouth nightly at bedtime. 03/24/20 22 Active hydrOXYzine (ATARAX) 50 MG tablet Take 1 tablet (50 mg total) by mouth 3 (three) times daily. As needed 10/09/19 Active JARDIANCE 25 MG tablet Take 1 tablet (25 mg total) by mouth daily. 11/01/19 Active TRELEGY ELLIPTA 100-62.5-25 MCG/ACT AEROSOL POWDER, BREATH ACTIVATED Inhale 1 puff into the lungs daily. 12/24/19 Active folic acid (FOLVITE) 1 MG tablet Take 1 tablet (1 mg total) by mouth daily. Active clotrimazole- betamethasone (LOTRISONE) cream 1 Application every 12 (twelve) hours. 07/06/20 Active pregabalin (LYRICA) 150 MG capsule Take 1 capsule (150 mg total) by mouth 2 (two) times daily. Active Semaglutide (OZEMPIC, 1 MG/DOSE, SC) Inject into the skin once a week. Active nystatin (MYCOSTATIN) powder Apply topically 2 (two) times daily. Apply to groin, under abdominal fold 15 g 08/03/20 Active HYDROcodone-a cetaminophen (NORCO) 7.5-325 MG tabletIndicat ions:Acute Pain < 3 Day Supply Take 1 tablet by mouth every 8 (eight) hours as needed for Pain. Indications: Acute Pain < 3 Day Supply 6 tablet 09/21/19 25 025 Active warfarin (COUMADIN) 7.5 MG tablet Take 1 tablet (7.5 mg total) by mouth daily for 2 days. 2 tablet 09/21/19 25 025 Active aspirin 81 MG chewable tablet Chew 1 tablet (81 mg total) by mouth daily for 30 days. 30 tablet 09/22/19 25 025 Active bumetanide (BUMEX) 2 MG tablet Take 1 tablet (2 mg total) by mouth daily for 30 days. 30 tablet 09/22/19 25 025 Active insulin glargine (LANTUS) 100 UNIT/ML injection (VIAL) Inject 18 Units into the skin nightly at bedtime for 30 days. 5.4 mL 09/21/19 25 025 Active insulin lispro (HUMALOG/ADME LOG) 100 UNIT/ML injection (VIAL) Inject 0-3 Units into the skin 3 (three) times daily before meals. 2.7 mL 01 Active insulin lispro (HUMALOG/ADME LOG) 100 UNIT/ML injection (VIAL) Inject 6 Units into the skin 3 (three) times daily before meals. 5.4 mL 09/21/19 Active metoprolol succinate ER (TOPROL-XL) 25 MG 24 hr tablet Take 1 tablet (25 mg total) by mouth daily for 30 days. 30 tablet 09/22/19 Active carvedilol (COREG) 3.125 MG tablet Take 1 tablet (3.125 mg total) by mouth 2 (two) times daily. 10/09/19 025 Discontinued(St op Taking at Discharge) glipiZIDE XL (GLUCOTROL XL) 5 MG 24 hr tablet Take 1 tablet (5 mg total) by mouth daily with breakfast. 30 tablet 02/10/20 Discontinued(St op Taking at Discharge) furosemide (LASIX) 80 MG tablet Take 1 tablet (80 mg total) by mouth daily. 30 tablet 07/17/20 025 Discontinued(St op Taking at Discharge) HYDROcodone-a cetaminophen (NORCO) 10-325 MG tabletIndicat ions:Acute Pain < 7 Day Supply Take 1 tablet by mouth every 6 (six) hours as needed. Indications: Acute Pain < 7 Day Supply 15 tablet 07/16/20 025 Discontinued(Er ror) sacubitril-va lsartan (ENTRESTO) 24-26 MG tabletIndicat ions:Chronic combined systolic and diastolic congestive heart failure (CMS/HCC HHS/HCC) Take 1 tablet by mouth 2 (two) times daily. 60 tablet 11 01/31/20 025 Discontinued(St op Taking at Discharge) warfarin (COUMADIN) 4 MG tablet Take 1 tablet (4 mg total) by mouth daily. Monitor INR every 3-4 days and follow up closely with PCP 30 tablet 08/03/20 025 Discontinued(St op Taking at Discharge) HYDROcodone-a cetaminophen (NORCO) 7.5-325 MG tablet Take 1 tablet by mouth every 8 (eight) hours as needed for Pain. Discontinued Active Problems Problem Noted Date Diagnosed Date Chronic venous insufficiency 04/17/2024 CHF exacerbation ([facility] 07/12/2023 Rib fractures 02/06/2023 NSTEMI (non-ST elevated myoc ardial infarction) ([facility]) 02/01/2022 Elevated troponin 02/01/2022 Elevated brain natriuretic peptide (BNP) level 0 02/01/2022 Fall 02/01/2022 Other closed fracture of dis kaity end of right fibula with routine healing, subsequent encounter 01/29/2022 Leg edema 12/09/2021 Mild persistent asthma without complication ([facility]) 04/06/2021 Asymptomatic carotid artery stenosis, bilateral 11/26/2020 Obstructive sleep apnea (adult) (pediatric) 10/21 Pulmonary hypertension ([facility]) 021 TIA (transient ischemic attack) 09/03/2020 Pain in both lower extremities 03/07/2019 Chronic atrial fibrillation ([facility]) Chronic anticoagulation 02/15/2017 Abnormal finding on [...] hypertension Mixed hyperlipidemia Diabetes mellitus, type II ([facility]) Coronary artery disease invo lving [place] coronary artery of [place] heart without angina pectoris COPD (chronic obstructive pu lmonary disease) ([facility]) Carotid disease, bilateral Arthritis Aortic stenosis Varicose veins of bilateral lower extremities with other complications Abnormal ankle brachial index (STELLA) Claudication CHF (congestive heart failure) ([facility]) 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 ([facility]) Non-pressure chronic ulcer o f left calf limited to breakdown of skin ([facility]) Resolved Problems Problem Noted Date Diagnosed Date Resolved Date Encounter for preventive health examination 02/06/2014 05/03/2020 PAD (peripheral artery disease) 04/11/2019 Encounters Date Type Department Care Team Description 09/21/2024 Telephone [facility] [address] [place] [address] Brit Gonzáles MD 09/21/2024 Orders Only [facility] [address] [place] [address] Brit Gonzáles MD 09/12/2024 Telephone [facility] [address] [place] [address] Brit Gonzáles MD Appointment Request 08/31/2024 8:49 AM [employer] - 09/21/2024 10:43 AM [employer] Hospital Encounter [facility] [address] [place] [address] Chidi Umanzor MD Jabeen, MD Greyson Henry Pankaj, MD Subramaniyam, Rajamurugan R, MD Rangu, Venu Mohan, MD Yaseen, Maryam, MD Markapuram, MD Ronen Discharge Disposition: [facility] Facility 08/31/2024 Travel 08/24/2024 1:15 PM [employer] Office Visit [facility] [address] [place] [address] Arnold Hernandez MD New Patient (Ventral hernia) 08/24/2024 Travel 08/14/2024 2:10 PM J[employer]ING [employer]DEL [employer] - 08/14/2024 11:59 PM [employer] Hospital Encounter [facility] [address] [place] [address] Zayra Powell FNP Discharge Disposition: Home or Self Care (Routine Discharge) 08/14/2024 Travel 08/08/2024 1:52 PM [employer] - 08/08/2024 11:59 PM [employer] Hospital Encounter [facility] [address] [place] [address] Andre, Zayra K, CISO Discharge Disposition: Home or Self Care (Routine Discharge) 08/08/2024 Travel 07/31/2024 3:15 PM [employer]ING [employer]DEL [employer] - 08/03/2024 1:08 PM [employer] Hospital En[facility] [address] [place] [address] Jena Schilling MD Fisher, MD Kevan Cooney, Cornelius Summers MD Shortness Of Breath Discharge Disposition: Home [...] e alcohol) 4 beers per week [facility] [employer] Answer Date Recorded In the past 12 months has e [employer], gas, oil, or water [employer] threatened to shut off services in your [...] How often do you attend moravian or taoism serv ices? Patient declined 02/16/2023 [...] 12/01/2021 [facility] Questionnaire Answer Date [...] a residential (including now)? Patient declined 07/12/2023 Housing Stability [...] any time in the past 12 m [facility], were you homeless or living in a residential (including now)? No 08/31/2024 Sex and Gender Information Value Date Recorded Sex Assigned at Male 09/07/2024 10:18 PM [employer] Legal Sex Male 10:01 PM CDT Gender Identity Male 09/07/2024 10:18 PM [employer] Sexual Orientation Straight 09/07/2024 10 :18 PM [employer] Occupation Industry Job Start Date Job End Date Not on file Not on file Not on file Not on file Last Filed Vital Signs Vital Sign Reading Time Taken Comments Blood Pressure 110/61 09/21/2024 7:39 AM J[employer]ING [employer]DEL [employer]ER Pulse 78 09/21/2024 7:39 AM [employer]ING [employer]DEL [employer]ER Temperature 36.4 ??C (97.5 ??F) 09/21/2024 7:39 AM CS T Respiratory Rate 17 09/21/2024 7:39 AM J[employer]ING [employer]DEL [employer]ER Oxygen Saturation 99% 09/21/2024 7:39 AM J[employer]ING [employer]DEL [employer]KER Inhaled Oxygen Concentration - - Weight 101.5 kg (223 lb 12.3 oz) 09/21/2024 5:00 AM [employer]ING [employer]DEL [employer] Height 167.6 cm (5' 6 ) 08/31/2024 9:47 AM J[employer]ING [employer]DEL [employer]ER Body Mass Index 36.12 08/31/2024 9:47 AM J[employer]RY [employer]ING [employer]DEL [employer]KER Plan of Treatment Upcoming Encounters Date Type Department Care Team (Late st Contact Info) Description 09/25/2024 2:00 PM J[employer]ING [employer] Appointment [facility] [address] [place] [address] Zayra Powell, CISO [address] [place] [address] 10/16/2024 3:30 PM [employer] Office Visit [facility] [id number] [id number] Brit Gonzáles MD [address] [place], [place] [address] Health Maintenance Due Date Last Done Comments Kidney Health Evaluation 1954 Diabetes: Retinopathy Eye Exam 1972 Zoster Vaccines (1 of 2) 2004 Pneumococcal Vaccine: 65+ Years (2 of 2 - PCV) 08/23/2013 08/23/2012, 04/17/2012 RSV Immunization or 60+ Years (1 - Risk 60-74 years 1-dose series) 2014 Annual Medicare Wellness Visit 2019 ASCVD LDL 02/01/2023 02/01/2022, 0810/2016, 03/24/2016, Additional history exists Lipid Panel 02/01/2023 02/01/2022, 02/15/2013 COVID-19 Vaccine ( season) 2024 07/29/2021, 11/14/2020, 10/16/2020 Influenza Adult (#1) 2024 05/23/2021, 05/27/2020, 05/14/2016, Additional history exists PHQ-2 (Physician Fernley) 08/23/2024 Hemoglobin A1C 03/01/2025 09/01/2024, 01/22, 02/16/2023, Additional history exists Colorectal Cancer Screening Colonoscopy (10 Years) 01/28/2032 01/27/2022, 01/27/2022, 03/18/2021, Additional history exists DTaP, Tdap and Td Vaccines (2 - Td or Tdap) 02/06/2033 02/06/2023 Hepatitis C Completed 12/24/2022 AAA SCREENING Completed 11/17/2023, 06/24, 02/06/2023, Additional history exists Meningococcal B Vaccine Aged Out No l onger eligible based on patient's age to complete this topic Meningococcal Vaccine Aged Out No octavia terry [...] planning Lifestyle No Karen Quezada RN Procedures Procedure Name Priority Date/Time Associated Diagnosis Comments POCT GLUCOSE - VALLECILLO DOCKED DEVICE Routine 09/21/2024 6:26 AM J[employer]ING [employer]DEL [employer]ER MAGNESIUM STAT 09/21/2024 5:45 AM JEWELRY [employer]ING [employer]DEL MAKER BASIC METABOLIC PANEL STAT 09/21/2024 5:45 AM JEWELRY CA[employer]ING [employer]DEL MAKER PROTHROMBIN TIME, VENOUS Routine 09/21/2024 3:33 AM JEWELRY CA[employer]ING [employer]DEL MAKER POCT GLUCOSE - VALLECILLO DOCKED DEVICE Routine 09/20/2024 9:57 PM JEWELRY [employer]ING [employer]DEL MAKER POCT GLUCOSE - VALLECILLO DOCKED DEVICE Routine 09/20/2024 3:50 PM JEWELRY [employer]ING [employer]DEL MAKER POCT GLUCOSE - VALLECILLO DOCKED DEVICE Routine 09/20/2024 11:52 AM JEWELRY CA[employer]ING [employer]DEL MAKER POCT GLUCOSE - VALLECILLO DOCKED DEVICE Routine 09/20/2024 11:26 AM JEWELRY [employer]ING [employer]DEL MAKER POCT GLUCOSE - VALLECILLO DOCKED DEVICE Routine 09/20/2024 10:55 AM JEWELRY [employer]ING [employer]DEL MAKER POCT GLUCOSE - VALLECILLO DOCKED DEVICE Routine 09/20/2024 6:33 AM JEWELRY [employer]ING [employer]DEL MAKER BASIC METABOLIC PANEL Routine 09/20/2024 3:56 AM JEWELRY [employer]ING [employer]DEL MAKER PROTHROMBIN TIME, VENOUS Routine 09/20/2024 3:56 AM JEWELRY CA[employer]ING [employer]DEL MAKER POCT GLUCOSE - VALLECILLO DOCKED DEVICE Routine 09/19/2024 8:58 PM JEWELRY CA[employer]ING [employer]DEL MAKER POCT GLUCOSE - VALLECILLO DOCKED DEVICE Routine 09/19/2024 4:36 PM JEWELRY CA[employer]ING [employer]DEL MAKER POCT GLUCOSE - VALLECILLO DOCKED DEVICE Routine 09/19/2024 4:14 PM JEWELRY CA[employer]ING MODEL MAKER POCT GLUCOSE - VALLECILLO DOCKED DEVICE Routine 09/19/2024 11:30 AM JEWELRY CA[employer]ING MODEL MAKER POCT GLUCOSE - VALLECILLO DOCKED DEVICE Routine 09/19/2024 5:22 AM JEWELRY [employer]ING [employer]DEL MAKER PROTHROMBIN TIME, VENOUS Routine 09/19/2024 3:42 AM JEWELRY [employer]ING [employer]DEL MAKER POCT GLUCOSE - VALLECILLO DOCKED DEVICE Routine 09/18/2024 8:51 PM JEWELRY [employer]ING [employer]DEL MAKER POCT GLUCOSE - VALLECILLO DOCKED DEVICE Routine 09/18/2024 4:23 PM JEWELRY [employer]ING [employer]DEL MAKER POCT GLUCOSE - VALLECILLO DOCKED DEVICE Routine 09/18/2024 11:09 AM JEWELRY [employer]ING [employer]DEL MAKER POCT GLUCOSE - VALLECILLO DOCKED DEVICE Routine 09/18/2024 6:04 AM JEWELRY [employer]ING [employer]DEL MAKER RENAL FUNCTION PANEL Routine 09/18/2024 3:29 AM JEWELRY [employer]ING [employer]DEL MAKER PROTHROMBIN TIME, VENOUS Routine 09/18/2024 3:29 AM JEWELRY CA[employer]ING MODEL MAKER POCT GLUCOSE - VALLECILLO DOCKED DEVICE Routine 09/17/2024 9:17 PM JEWELRY [employer]ING [employer]DEL MAKER POCT GLUCOSE - VALLECILLO DOCKED DEVICE Routine 09/17/2024 4:44 PM JEWELRY [employer]ING [employer]DEL MAKER POCT GLUCOSE - VALLECILLO DOCKED DEVICE Routine 09/17/2024 11:06 AM JEWELRY CA[employer]ING MODEL MAKER POCT GLUCOSE - VALLECILLO DOCKED DEVICE Routine 09/17/2024 6:16 AM JEWELRY [employer]ING [employer]DEL MAKER PROTHROMBIN TIME, VENOUS Routine 09/17/2024 5:57 AM JEWELRY [employer]ING [employer]DEL MAKER BLOOD GAS, VENOUS Routine 09/17/2024 3:4 3 AM JEWELRY [employer]ING MODEL MAKER PHOSPHORUS, INORGANIC PHOSPHATE Routine 09/17/2024 3:43 AM JEWELRY CA[employer]ING MODEL MAKER MAGNESIUM Routine 09/17/2024 3:43 AM JEWELRY CA[employer]ING MODEL MAKER POCT GLUCOSE - VALLECILLO DOCKED DEVICE Routine 09/16/2024 9:35 PM JEWELRY CASTING MODEL MAKER POCT GLUCOSE - VALLECILLO DOCKED DEVICE Routine 09/16/2024 3:46 PM JEWELRY CA[employer]ING MODEL MAKER POCT GLUCOSE - VALLECILLO DOCKED DEVICE Routine 09/16/2024 10:53 AM JEWELRY CASTING MODEL MAKER POCT GLUCOSE - VALLECILLO DOCKED DEVICE Routine 09/16/2024 6:35 AM JEWELRY CA[employer]ING MODEL MAKER PROTHROMBIN TIME, VENOUS Routine 09/16/2024 4:21 AM JEWELRY [employer]ING [employer]DEL MAKER BLOOD GAS, VENOUS Routine 09/16/2024 4:2 1 AM JEWELRY CA[employer]ING MODEL MAKER PHOSPHORUS, INORGANIC PHOSPHATE Routine 09/16/2024 4:21 AM JEWELRY CA[employer]ING MODEL MAKER MAGNESIUM Routine 09/16/2024 4:21 AM JEWELRY CASTING MODEL MAKER POCT GLUCOSE - VALLECILLO DOCKED DEVICE Routine 09/15/2024 9:22 PM JEWELRY [employer]ING MODEL MAKER POCT GLUCOSE - VALLECILLO DOCKED DEVICE Routine 09/15/2024 4:46 PM JEWELRY [employer]ING MODEL MAKER HOME O2 EVAL Routine 09/15/2024 12:42 PM JEWELRY CA[employer]ING MODEL MAKER POCT GLUCOSE - VALLECILLO DOCKED DEVICE Routine 09/15/2024 10:45 AM JEWELRY [employer]ING [employer]DEL MAKER BEDSIDE SPIROMETRY Routine 09/15/2024 9: 45 AM JEWELRY CA[employer]ING MODEL MAKER POCT GLUCOSE - VALLECILLO DOCKED DEVICE Routine 09/15/2024 8:22 AM JEWELRY CA[employer]ING MODEL MAKER POCT GLUCOSE - VALLECILLO DOCKED DEVICE Routine 09/15/2024 7:20 AM JEWELRY CA[employer]ING MODEL MAKER POCT GLUCOSE - VALLECILLO DOCKED DEVICE Routine 09/15/2024 6:50 AM JEWELRY CA[employer]ING MODEL MAKER POCT GLUCOSE - VALLECILLO DOCKED DEVICE Routine 09/15/2024 6:17 AM JEWELRY [employer]ING [employer]DEL MAKER CBC, AUTO, NO DIFF Routine 09/15/2024 5: 04 AM JEWELRY CA[employer]ING [employer]DEL MAKER BASIC METABOLIC PANEL Routine 09/15/2024 5:04 AM JEWELRY CA[employer]ING MODEL MAKER PROTHROMBIN TIME, VENOUS Routine 09/15/2024 5:04 AM JEWELRY CASTING MODEL MAKER BLOOD GAS, VENOUS Routine 09/15/2024 5:0 4 AM JEWELRY CA[employer]ING MODEL MAKER PHOSPHORUS, INORGANIC PHOSPHATE Routine 09/15/2024 5:04 AM JEWELRY CASTING MODEL MAKER MAGNESIUM Routine 09/15/2024 5:04 AM JEWELRY CASTING MODEL MAKER POCT GLUCOSE - VALLECILLO DOCKED DEVICE Routine 09/14/2024 8:48 PM JEWELRY CASTING MODEL MAKER POCT GLUCOSE - VALLECILLO DOCKED DEVICE Routine 09/14/2024 5:23 PM JEWELRY CASTING MODEL MAKER POCT GLUCOSE - VALLECILLO DOCKED DEVICE Routine 09/14/2024 11:09 AM JEWELRY CASTING MODEL MAKER PROTHROMBIN TIME, VENOUS Routine 09/14/2024 9:49 AM JEWELRY CASTING MODEL MAKER POCT GLUCOSE - VALLECILLO DOCKED DEVICE Routine 09/14/2024 5:33 AM JEWELRY CA[employer]ING MODEL MAKER CBC W/DIFF AUTOMATED Routine 09/14/2024 3:48 AM JEWELRY CASTING MODEL MAKER COMPREHENSIVE METABOLIC PANEL Routine 09/14/2024 3:48 AM JEWELRY CASTING MODEL MAKER BLOOD GAS, VENOUS Routine 09/14/2024 3:4 8 AM JEWELRY CASTING MODEL MAKER PHOSPHORUS, INORGANIC PHOSPHATE Routine 09/14/2024 3:48 AM JEWELRY CASTING MODEL MAKER MAGNESIUM Routine 09/14/2024 3:48 AM JEWELRY CASTING MODEL MAKER POCT GLUCOSE - VALLECILLO DOCKED DEVICE Routine 09/13/2024 9:16 PM JEWELRY CASTING MODEL MAKER POCT GLUCOSE - VALLECILLO DOCKED DEVICE Routine 09/13/2024 3:52 PM JEWELRY [employer]ING MODEL MAKER BLOOD GAS, VENOUS TIMED 09/13/2024 1:0 0 PM JEWELRY CA[employer]ING MODEL MAKER POCT GLUCOSE - VALLECILLO DOCKED DEVICE Routine 09/13/2024 11:30 AM JEWELRY CASTING MODEL MAKER POCT GLUCOSE - VALLECILLO DOCKED DEVICE Routine 09/13/2024 6:33 AM JEWELRY CASTING MODEL MAKER BLOOD GAS, VENOUS Routine 09/13/2024 4:5 8 AM JEWELRY CASTING MODEL MAKER PHOSPHORUS, INORGANIC PHOSPHATE Routine 09/13/2024 4:58 AM JEWELRY CASTING MODEL MAKER PROTHROMBIN TIME, VENOUS Routine 09/13/2024 4:58 AM JEWELRY CASTING MODEL MAKER MAGNESIUM Routine 09/13/2024 4:58 AM JEWELRY CASTING MODEL MAKER POCT GLUCOSE - VALLECILLO DOCKED DEVICE Routine 09/12/2024 9:25 PM JEWELRY CASTING MODEL MAKER POCT GLUCOSE - VALLECILLO DOCKED DEVICE Routine 09/12/2024 5:30 PM JEWELRY CASTING MODEL MAKER POCT GLUCOSE - VALLECILLO DOCKED DEVICE Routine 09/12/2024 4:19 PM JEWELRY CASTING MODEL MAKER POCT GLUCOSE - VALLECILLO DOCKED DEVICE Routine 09/12/2024 11:32 AM JEWELRY CASTING MODEL MAKER POCT GLUCOSE - VALLECILLO DOCKED DEVICE Routine 09/12/2024 6:27 AM JEWELRY CA[employer]ING MODEL MAKER CBC W/DIFF AUTOMATED Routine 09/12/2024 3:12 AM JEWELRY CASTING MODEL MAKER BASIC METABOLIC PANEL Routine 09/12/2024 3:12 AM JEWELRY CA[employer]ING MODEL MAKER BLOOD GAS, VENOUS Routine 09/12/2024 3:1 2 AM JEWELRY CASTING MODEL MAKER PHOSPHORUS, INORGANIC PHOSPHATE Routine 09/12/2024 3:12 AM JEWELRY CASTING MODEL MAKER PROTHROMBIN TIME, VENOUS Routine 09/12/2024 3:12 AM JEWELRY CA[employer]ING MODEL MAKER MAGNESIUM Routine 09/12/2024 3:12 AM JEWELRY CASTING MODEL MAKER POCT GLUCOSE - VALLECILLO DOCKED DEVICE Routine 09/11/2024 8:30 PM JEWELRY CASTING MODEL MAKER POCT GLUCOSE - VALLECILLO DOCKED DEVICE Routine 09/11/2024 4:08 PM JEWELRY CASTING MODEL MAKER POCT GLUCOSE - VALLECILLO DOCKED DEVICE Routine 09/11/2024 12:21 PM JEWELRY CASTING MODEL MAKER ECG 12-LEAD STAT 09/11/2024 5:38 AM JEWELRY CASTING MODEL MAKER POCT GLUCOSE - VALLECILLO DOCKED DEVICE Routine 09/11/2024 5:32 AM JEWELRY CASTING MODEL MAKER COMPREHENSIVE METABOLIC PANEL Routine 09/11/2024 3:58 AM JEWELRY CA[employer]ING MODEL MAKER CBC W/DIFF AUTOMATED Routine 09/11/2024 3:58 AM JEWELRY CASTING MODEL MAKER BLOOD GAS, VENOUS Routine 09/11/2024 3:5 8 AM JEWELRY CASTING MODEL MAKER PHOSPHORUS, INORGANIC PHOSPHATE Routine 09/11/2024 3:58 AM JEWELRY CASTING MODEL MAKER PROTHROMBIN TIME, VENOUS Routine 09/11/2024 3:58 AM JEWELRY CASTING MODEL MAKER MAGNESIUM Routine 09/11/2024 3:58 AM JEWELRY CASTING MODEL MAKER POCT GLUCOSE - VALLECILLO DOCKED DEVICE Routine 09/10/2024 9:08 PM JEWELRY CASTING MODEL MAKER POCT GLUCOSE - VALLECILLO DOCKED DEVICE Routine 09/10/2024 4:09 PM JEWELRY CASTING MODEL MAKER POCT GLUCOSE - VALLECILLO DOCKED DEVICE Routine 09/10/2024 12:03 PM JEWELRY CASTING MODEL MAKER POCT GLUCOSE - VALLECILLO DOCKED DEVICE Routine 09/10/2024 6:16 AM JEWELRY CA[employer]ING MODEL MAKER BASIC METABOLIC PANEL Routine 09/10/2024 5:49 AM JEWELRY CASTING MODEL MAKER BLOOD GAS, VENOUS Routine 09/10/2024 5:4 9 AM JEWELRY CA[employer]ING MODEL MAKER PHOSPHORUS, INORGANIC PHOSPHATE Routine 09/10/2024 5:49 AM JEWELRY CASTING MODEL MAKER PROTHROMBIN TIME, VENOUS Routine 09/10/2024 5:49 AM JEWELRY CASTING MODEL MAKER MAGNESIUM Routine 09/10/2024 5:49 AM JEWELRY CASTING MODEL MAKER CBC W/DIFF AUTOMATED Routine 09/10/2024 5:47 AM JEWELRY CASTING MODEL MAKER POCT GLUCOSE - VALLECILLO DOCKED DEVICE Routine 09/09/2024 10:02 PM JEWELRY CASTING MODEL MAKER POCT GLUCOSE - VALLECILLO DOCKED DEVICE Routine 09/09/2024 3:51 PM JEWELRY CASTING MODEL MAKER POCT GLUCOSE - VALLECILLO DOCKED DEVICE Routine 09/09/2024 1:00 PM JEWELRY [employer]ING [employer]DEL MAKER BLOOD GAS, VENOUS TIMED 09/09/2024 12:50 PM JEWELRY [employer]ING MODEL MAKER CBC W/DIFF AUTOMATED Routine 09/09/2024 6:10 AM JEWELRY CA[employer]ING MODEL MAKER COMPREHENSIVE METABOLIC PANEL Routine 09/09/2024 6:10 AM JEWELRY CA[employer]ING MODEL MAKER BLOOD GAS, VENOUS Routine 09/09/2024 6:1 0 AM JEWELRY CASTING MODEL MAKER PHOSPHORUS, INORGANIC PHOSPHATE Routine 09/09/2024 6:10 AM JEWELRY CASTING MODEL MAKER PROTHROMBIN TIME, VENOUS Routine 09/09/2024 6:10 AM JEWELRY CA[employer]ING MODEL MAKER MAGNESIUM Routine 09/09/2024 6:10 AM JEWELRY CASTING MODEL MAKER XR CHEST PORTABLE Routine 09/09/2024 6:0 2 AM JEWELRY CASTING MODEL MAKER POCT GLUCOSE - VALLECILLO DOCKED DEVICE Routine 09/09/2024 5:52 AM [employer] POCT GLUCOSE - VALLECILLO DOCKED DEVICE Routine 09/08/2024 9:27 PM [employer] POCT GLUCOSE - VALLECILLO DOCKED DEVICE Routine 09/08/2024 4:51 PM [employer] POCT GLUCOSE - VALLECILLO DOCKED DEVICE Routine 09/08/2024 11:05 AM [employer] VANCOMYCIN TIMED 09/08/2024 10:37 AM [employer] BLOOD GAS, VENOUS Routine 09/08/2024 4:5 3 AM [employer]ER PHOSPHORUS, INORGANIC PHOSPHATE Routine 09/08/2024 4:53 AM [employer] COMPREHENSIVE METABOLIC PANEL Routine 09/08/2024 4:53 AM [employer] PROTHROMBIN TIME, VENOUS Routine 09/08/2024 4:53 AM [employer] CBC W/DIFF AUTOMATED Routine 09/08/2024 4:53 AM [employer]ER MAGNESIUM Routine 09/08/2024 4:53 AM [employer] POCT GLUCOSE - VALLECILLO DOCKED DEVICE Routine 09/08/2024 4:10 AM [employer] POCT GLUCOSE - VALLECILLO DOCKED DEVICE Routine 09/08/2024 1:05 AM [employer] POCT GLUCOSE - VALLECILLO DOCKED DEVICE Routine 09/07/2024 9:39 PM [employer] POCT GLUCOSE - VALLECILLO DOCKED DEVICE Routine 09/07/2024 5:36 PM [employer] XR SPEECH SWALLOW SJS ONLY Routine 09/07/2024 1:50 PM [employer] POCT GLUCOSE - VALLECILLO DOCKED DEVICE Routine 09/07/2024 11:36 AM [employer] POCT GLUCOSE - VALLECILLO DOCKED DEVICE Routine 09/07/2024 8:15 AM [employer] POCT ACUTE VENOUS PANEL Routine 09/07/2024 3:47 AM [employer]ER PHOSPHORUS, INORGANIC PHOSPHATE Routine 09/07/2024 3:42 AM [employer] COMPREHENSIVE METABOLIC PANEL Routine 09/07/2024 3:42 AM [employer]ER PROTHROMBIN TIME, VENOUS Routine 09/07/2024 3:42 AM [employer]ER CBC W/DIFF AUTOMATED Routine 09/07/2024 3:42 AM [employer] MAGNESIUM Routine 09/07/2024 3:42 AM JEWELRY CASTING MODEL MAKER POCT GLUCOSE - VALLECILLO DOCKED DEVICE Routine 09/06/2024 11:44 PM JEWELRY [employer]ING [employer]DEL MAKER POCT GLUCOSE - VALLECILLO DOCKED DEVICE Routine 09/06/2024 8:47 PM JEWELRY [employer]STING MODEL MAKER BASIC METABOLIC PANEL TIMED 09/06/2024 8:30 PM JEWEL[employer]ING [employer]DEL MAKER POCT GLUCOSE - VALLECILLO DOCKED DEVICE Routine 09/06/2024 4:52 PM J[employer]ELRY [employer]ING [employer]DEL MAKER POCT GLUCOSE - VALLECILLO DOCKED DEVICE Routine 09/06/2024 3:54 PM J[employer]EL[employer]ING MODEL MAKER VANCOMYCIN TIMED 09/06/2024 12:49 PM J[employer]RY [employer]ING [employer]DEL MAKER BASIC METABOLIC PANEL TIMED 09/06/2024 12:49 PM JEWELRY [employer]ING [employer]DEL MAKER POCT GLUCOSE - VALLECILLO DOCKED DEVICE Routine 09/06/2024 11:35 AM JEWELRY [employer]ING MODEL MAKER POCT GLUCOSE - VALLECILLO DOCKED DEVICE Routine 09/06/2024 8:59 AM JEWELRY CA[employer]ING MODEL MAKER PROTHROMBIN TIME, VENOUS STAT 09/06/2024 8:30 AM JEWELRY CASTING MODEL MAKER XR CHEST PORTABLE Routine 09/06/2024 5:2 1 AM JEWELRY [employer]ING MODEL MAKER POCT ACUTE VENOUS PANEL Routine 09/06/2024 4:41 AM JEWELRY [employer]ING MODEL MAKER POCT GLUCOSE - VALLECILLO DOCKED DEVICE Routine 09/06/2024 4:37 AM JEWELRY [employer]ING MODEL MAKER CBC W/DIFF AUTOMATED Routine 09/06/2024 4:30 AM JEWELRY CASTING MODEL MAKER PHOSPHORUS, INORGANIC PHOSPHATE Routine 09/06/2024 4:30 AM JEWELRY [employer]ING MODEL MAKER MAGNESIUM Routine 09/06/2024 4:30 AM JEWELRY CASTING MODEL MAKER COMPREHENSIVE METABOLIC PANEL Routine 09/06/2024 4:30 AM JEWEL[employer]ING MODEL MAKER POCT GLUCOSE - VALLECILLO DOCKED DEVICE Routine 09/06/2024 12:20 AM J[employer]EL[employer]ING MODEL MAKER POCT GLUCOSE - VALLECILLO DOCKED DEVICE Routine 09/05/2024 8:08 PM JEWELRY [employer]ING MODEL MAKER BASIC METABOLIC PANEL TIMED 09/05/2024 8:00 PM JEWELRY [employer]ING MODEL MAKER POCT GLUCOSE - VALLECILLO DOCKED DEVICE Routine 09/05/2024 5:05 PM JEWELRY [employer]ING MODEL MAKER POCT ACUTE VENOUS PANEL Routine 09/05/2024 11:17 AM JEWELRY CASTING MODEL MAKER POCT GLUCOSE - VALLECILLO DOCKED DEVICE Routine 09/05/2024 11:15 AM JEWELRY [employer]ING [employer]DEL MAKER BASIC METABOLIC PANEL TIMED 09/05/2024 11:10 AM J[employer]ING MODEL MAKER VANCOMYCIN TIMED 09/05/2024 11:10 AM JEWEL[employer]ING [employer]DEL MAKER PROTHROMBIN TIME, VENOUS STAT 09/05/2024 8:50 AM JEWELRY [employer]ING MODEL MAKER POCT GLUCOSE - VALLECILLO DOCKED DEVICE Routine 09/05/2024 8:32 AM JEWELRY CASTING MODEL MAKER CULTURE RESPIRATORY W/ GRAM STAIN Nurse Collected Priority 09/05/2024 7:40 AM JEWELRY [employer]ING MODEL MAKER XR CHEST PORTABLE Routine 09/05/2024 4:5 8 AM JEWELRY CA[employer]ING MODEL MAKER POCT ACUTE VENOUS PANEL Routine 09/05/2024 4:12 AM JEWELRY [employer]ING MODEL MAKER POCT GLUCOSE - VALLECILLO DOCKED DEVICE Routine 09/05/2024 4:11 AM JEWELRY [employer]ING MODEL MAKER PHOSPHORUS, INORGANIC PHOSPHATE Routine 09/05/2024 4:00 AM JEWEL[employer]ING MODEL MAKER MAGNESIUM Routine 09/05/2024 4:00 AM JEWEL[employer]ING MODEL MAKER COMPREHENSIVE METABOLIC PANEL Routine 09/05/2024 4:00 AM JEWELRY [employer]ING MODEL MAKER CBC W/DIFF AUTOMATED Routine 09/05/2024 4:00 AM JEWELRY [employer]ING MODEL MAKER POCT GLUCOSE - VALLECILLO DOCKED DEVICE Routine 09/04/2024 11:40 PM JEWELRY CA[employer]ING MODEL MAKER POCT GLUCOSE - VALLECILLO DOCKED DEVICE Routine 09/04/2024 7:52 PM JEWELRY [employer]ING MODEL MAKER POCT GLUCOSE - VALLECILLO DOCKED DEVICE Routine 09/04/2024 3:43 PM JEWELRY [employer]STING MODEL MAKER XR CHEST PORTABLE STAT 09/04/2024 11:21 AM JEWELRY [employer]ING MODEL MAKER POCT GLUCOSE - VALLECILLO DOCKED DEVICE Routine 09/04/2024 11:20 AM JEWELRY [employer]ING MODEL MAKER USV VAST TEAM PICC INSERT >5YR Today 09/04/2024 11:10 AM JEWEL[employer]ING MODEL MAKER USV MARIA ALEJANDRA DUPLEX LOW EXT ELZA RACHELE 09/04/2024 9:03 AM JEWELRY [employer]ING MODEL MAKER TROPONIN, QUANT TIMED 09/04/2024 8:00 AM J[employer]EL[employer]ING MODEL MAKER HEPARIN, ANTI XA, UFH TIMED 09/04/2024 6:17 AM JEWEL[employer]ING MODEL MAKER POCT GLUCOSE - VALLECILLO DOCKED DEVICE Routine 09/04/2024 6:13 AM JEWEL[employer]ING [employer]DEL MAKER XR CHEST PORTABLE Routine 09/04/2024 5:3 5 AM J[employer]ELRY CA[employer]ING MODEL MAKER POCT ACUTE VENOUS PANEL Routine 09/04/2024 4:18 AM J[employer]EL[employer]ING [employer]DEL MAKER HEPARIN, ANTI XA, UFH TIMED 09/04/2024 4:15 AM JEWEL[employer]ING MODEL MAKER PROTHROMBIN TIME, VENOUS Routine 09/04/2024 4:15 AM JEWEL[employer]ING MODEL MAKER PHOSPHORUS, INORGANIC PHOSPHATE Routine 09/04/2024 4:15 AM J[employer]EL[employer]ING MODEL MAKER MAGNESIUM Routine 09/04/2024 4:15 AM JEWEL[employer]ING MODEL MAKER COMPREHENSIVE METABOLIC PANEL Routine 09/04/2024 4:15 AM J[employer]ELRY [employer]ING MODEL MAKER CBC W/DIFF AUTOMATED Routine 09/04/2024 4:15 AM J[employer]EL[employer]ING MODEL MAKER TROPONIN, QUANT Routine 09/04/2024 4:15 AM JEWELRY [employer]ING MODEL MAKER POCT GLUCOSE - VALLECILLO DOCKED DEVICE Routine 09/04/2024 12:08 AM JEWELRY [employer]ING MODEL MAKER XR CHEST PORTABLE STAT 09/03/2024 9:2 5 PM JEWELRY CA[employer]ING MODEL MAKER POCT GLUCOSE - VALLECILLO DOCKED DEVICE Routine 09/03/2024 9:23 PM JEWELRY [employer]ING [employer]DEL MAKER INTUBATION Routine 09/03/2024 9:08 PM JEWELRY [employer]ING MODEL MAKER PHOSPHORUS, INORGANIC PHOSPHATE Routine 09/03/2024 8:29 PM JEWELRY CASTING MODEL MAKER BLOOD GAS, ARTERIAL LAB Routine 09/03/2024 8:29 PM JEWEL[employer]ING MODEL MAKER TROPONIN, QUANT TIMED 09/03/2024 8:29 PM JEWELRY CA[employer]ING MODEL MAKER LACTIC ACID STAT 09/03/2024 8:29 PM JEWEL[employer]ING MODEL MAKER MAGNESIUM STAT 09/03/2024 8:29 PM JEWEL[employer] CA[employer]ING MODEL MAKER PRO-BRAIN NATRIURETIC PEPTIDE STAT 09/03/2024 8:29 PM JEWELRY [employer]ING MODEL MAKER COMPREHENSIVE METABOLIC PANEL STAT 09/03/2024 8:29 PM JEWELRY [employer]ING MODEL MAKER CBC W/DIFF AUTOMATED STAT 09/03/2024 8:29 PM JEWEL[employer] CA[employer]ING MODEL MAKER POCT ACUTE ARTERIAL PANEL Routine 09/03/2024 8:28 PM JEWEL[employer]ING MODEL MAKER XR CHEST PORTABLE STAT 09/03/2024 8:2 2 PM JEWELRY [employer]ING MODEL MAKER ECG 12-LEAD STAT 09/03/2024 8:13 PM JEWELRY CASTING MODEL MAKER POCT GLUCOSE - VALLECILLO DOCKED DEVICE Routine 09/03/2024 8:04 PM JEWELRY CA[employer]ING MODEL MAKER POCT GLUCOSE - VALLECILLO DOCKED DEVICE Routine 09/03/2024 5:22 PM JEWELRY [employer]ING MODEL MAKER POCT GLUCOSE - VALLECILLO DOCKED DEVICE Routine 09/03/2024 4:03 PM JEWELRY [employer]ING MODEL MAKER CULTURE, BACTERIA, BLOOD Routine 09/03/2024 12:23 PM JEWEL[employer]ING MODEL MAKER POCT GLUCOSE - VALLECILLO DOCKED DEVICE Routine 09/03/2024 10:55 AM JEWELRY CA[employer]ING MODEL MAKER XR CHEST PORTABLE Today 09/03/2024 9:3 5 AM JEWEL[employer]ING [employer]DEL MAKER BLOOD GAS, ARTERIAL LAB Routine 09/03/2024 9:09 AM JEWELRY [employer]ING MODEL MAKER COMPREHENSIVE METABOLIC PANEL Routine 09/03/2024 5:06 AM JEWELRY CA[employer]ING MODEL MAKER PROTHROMBIN TIME, VENOUS Routine 09/03/2024 5:06 AM JEWELRY [employer]ING MODEL MAKER CBC W/DIFF AUTOMATED Routine 09/03/2024 5:06 AM JEWELRY CASTING MODEL MAKER POCT GLUCOSE - VALLECILLO DOCKED DEVICE Routine 09/03/2024 4:44 AM JEWELRY CA[employer]ING MODEL MAKER PROTHROMBIN TIME, VENOUS STAT 09/03/2024 12:50 AM JEWEL[employer]ING [employer]DEL MAKER HEPARIN, ANTI XA, UFH STAT 09/03/2024 12:50 AM JEWELRY CA[employer]ING MODEL MAKER RENAL FUNCTION PANEL Routine 09/02/2024 11:25 PM JEWELRY CASTING MODEL MAKER POCT GLUCOSE - VALLECILLO DOCKED DEVICE Routine 09/02/2024 8:47 PM JEWELRY CASTING MODEL MAKER POCT GLUCOSE - VALLECILLO DOCKED DEVICE Routine 09/02/2024 4:07 PM JEWELRY CA[employer]ING MODEL MAKER POCT GLUCOSE - VALLECILLO DOCKED DEVICE Routine 09/02/2024 11:56 AM JEWELRY CA[employer]ING MODEL MAKER COMPREHENSIVE METABOLIC PANEL Routine 09/02/2024 7:41 AM JEWEL[employer]ING MODEL MAKER PROTHROMBIN TIME, VENOUS Routine 09/02/2024 7:41 AM JEWELRY [employer]ING MODEL MAKER CBC W/DIFF AUTOMATED Routine 09/02/2024 7:41 AM JEWELRY CA[employer]ING MODEL MAKER POCT GLUCOSE - VALLECILLO DOCKED DEVICE Routine 09/02/2024 6:26 AM JEWELRY CA[employer]ING MODEL MAKER POCT GLUCOSE - VALLECILLO DOCKED DEVICE Routine 09/02/2024 12:59 AM J[employer]EL[employer] CA[employer]ING MODEL MAKER RENAL FUNCTION PANEL Routine 09/02/2024 12:30 AM JEWEL[employer] CA[employer]ING MODEL MAKER POCT GLUCOSE - VALLECILLO DOCKED DEVICE Routine 09/01/2024 9:07 PM JEWELRY CASTING MODEL MAKER POCT GLUCOSE - VALLECILLO DOCKED DEVICE Routine 09/01/2024 4:14 PM JEWEL[employer] CA[employer]ING MODEL MAKER POCT GLUCOSE - VALLECILLO DOCKED DEVICE Routine 09/01/2024 11:42 AM JEWEL[employer] CA[employer]ING MODEL MAKER URINE BACTERIA CULTURE Nurse Collected Priority 09/01/2024 11:10 AM JEWELRY [employer]ING MODEL MAKER XR SPEECH SWALLOW SJS ONLY Routine 09/01/2024 9:59 AM JEWEL[employer]ING [employer]DEL MAKER ANTI-GBM Routine 09/01/2024 8:19 AM JEWEL[employer]ING [employer]DEL MAKER ANCA VASCULITIS PANEL Routine 09/01/2024 8:19 AM JEWEL[employer]ING [employer]DEL MAKER THYROID STIM HORMONE TSH Routine 09/01/2024 8:19 AM JEWEL[employer]ING MODEL MAKER HEMOGLOBIN, GLYCOSYLATED Routine 09/01/2024 8:19 AM JEWEL[employer] CA[employer]ING MODEL MAKER MAGNESIUM Routine 09/01/2024 8:19 AM JEWEL[employer]ING MODEL MAKER COMPREHENSIVE METABOLIC PANEL Routine 09/01/2024 8:19 AM JEWEL[employer]ING MODEL MAKER PROTHROMBIN TIME, VENOUS Routine 09/01/2024 8:19 AM JEWELRY CASTING MODEL MAKER CBC W/DIFF AUTOMATED Routine 09/01/2024 8:19 AM JEWELRY CASTING MODEL MAKER POCT GLUCOSE - VALLECILLO DOCKED DEVICE Routine 09/01/2024 6:41 AM JEWELRY CA[employer]ING MODEL MAKER POCT GLUCOSE - VALLECILLO DOCKED DEVICE Routine 09/01/2024 12:55 AM JEWELRY CA[employer]ING [employer]DEL MAKER US [employer] Today 10:20 PM JEWEL[employer]ING [employer]DEL MAKER POCT GLUCOSE - VALLECILLO DOCKED DEVICE Routine 08/31/2024 6:34 PM JEWEL[employer]ING [employer]DEL MAKER CREATININE URINE RANDOM Nurse Collected Priority 08/31/2024 5:12 PM JEWEL[employer]ING [employer]DEL MAKER SODIUM URINE RANDOM Nurse Collected Priority 08/31/2024 5:12 PM JEWELRY [employer]ING MODEL MAKER HC URINALYSIS AUTO W/MICRO Nurse Collected Priority 08/31/2024 5:12 PM JEWELRY CASTING MODEL MAKER USE ECHOCARDIOGRAM W CON Today 08/31/2024 2:02 PM JEWEL[employer] CA[employer]ING MODEL MAKER POCT GLUCOSE - VALLECILLO DOCKED DEVICE Routine 08/31/2024 1:02 PM JEWELRY CASTING [employer]DEL MAKER ECG 12-LEAD Routine 08/31/2024 12:13 PM JEWELRY CASTING MODEL MAKER CK (CPK) Routine 08/31/2024 10:35 AM JEWELRY CASTING MODEL MAKER PROTHROMBIN TIME, VENOUS Routine 08/31/2024 10:35 AM JEWELRY CASTING MODEL MAKER PRO-BRAIN NATRIURETIC PEPTIDE Routine 08/31/2024 10:35 AM JEWELRY CA[employer]ING MODEL MAKER COMPREHENSIVE METABOLIC PANEL STAT 08/31/2024 10:35 AM JEWELRY CASTING MODEL MAKER CBC W/DIFF AUTOMATED STAT 08/31/2024 10:35 AM JEWELRY CASTING MODEL MAKER CULTURE, BACTERIA, BLOOD Routine 08/31/2024 10:34 AM JEWELRY CASTING MODEL MAKER XR CHEST PORTABLE Today 08/31/2024 10:16 AM JEWELRY CASTING MODEL MAKER POCT GLUCOSE - VALLECILLO DOCKED DEVICE Routine 08/31/2024 8:56 AM JEWELRY CASTING MODEL MAKER POCT GLUCOSE - VALLECILLO DOCKED DEVICE Routine 08/03/2024 11:14 AM JEWELRY CASTING MODEL MAKER POCT GLUCOSE - VALLECILLO DOCKED DEVICE Routine 08/03/2024 6:56 AM JEWELRY CASTING MODEL MAKER POCT GLUCOSE - VALLECILLO DOCKED DEVICE Routine 08/03/2024 6:40 AM JEWELRY CA[employer]ING MODEL MAKER POCT GLUCOSE - VALLECILLO DOCKED DEVICE Routine 08/03/2024 6:19 AM JEWELRY CASTING MODEL MAKER COMPREHENSIVE METABOLIC PANEL Routine 08/03/2024 5:46 AM JEWELRY CASTING MODEL MAKER CBC W/DIFF AUTOMATED Routine 08/03/2024 5:46 AM JEWELRY CASTING MODEL MAKER PROTHROMBIN TIME, VENOUS Routine 08/03/2024 5:46 AM JEWELRY CASTING MODEL MAKER POCT GLUCOSE - VALLECILLO DOCKED DEVICE Routine 08/02/2024 8:14 PM JEWELRY CA[employer]ING MODEL MAKER POCT GLUCOSE - VALLECILLO DOCKED DEVICE Routine 08/02/2024 4:10 PM JEWELRY CA[employer]ING MODEL MAKER POCT GLUCOSE - VALLECILLO DOCKED DEVICE Routine 08/02/2024 10:59 AM JEWELRY CA[employer]ING MODEL MAKER POCT GLUCOSE - VALLECILLO DOCKED DEVICE Routine 08/02/2024 6:20 AM JEWEL[employer] CA[employer]ING MODEL MAKER COMPREHENSIVE METABOLIC PANEL Routine 08/02/2024 5:13 AM JEWELRY CA[employer]ING MODEL MAKER CBC W/DIFF AUTOMATED Routine 08/02/2024 5:13 AM JEWELRY CASTING MODEL MAKER PROTHROMBIN TIME, VENOUS Routine 08/02/2024 5:13 AM JEWELRY CASTING MODEL MAKER POCT GLUCOSE - VALLECILLO DOCKED DEVICE Routine 08/01/2024 8:50 PM JEWELRY CASTING MODEL MAKER POCT GLUCOSE - VALLECILLO DOCKED DEVICE Routine 08/01/2024 6:28 PM JEWELRY CASTING MODEL MAKER POCT GLUCOSE - VLALECILLO DOCKED DEVICE Routine 08/01/2024 5:09 PM JEWELRY CASTING MODEL MAKER POCT GLUCOSE - VALLECILLO DOCKED DEVICE Routine 08/01/2024 11:53 AM JEWELRY CASTING MODEL MAKER POCT GLUCOSE - VALLECILLO DOCKED DEVICE Routine 08/01/2024 7:39 AM JEWELRY CASTING MODEL MAKER POCT GLUCOSE - VALLECILLO DOCKED DEVICE Routine 08/01/2024 6:56 AM JEWELRY CASTING MODEL MAKER POCT GLUCOSE - VALLECILLO DOCKED DEVICE Routine 08/01/2024 6:35 AM JEWELRY CASTING MODEL MAKER PROTHROMBIN TIME, VENOUS STAT 08/01/2024 5:24 AM JEWELRY CASTING MODEL MAKER BASIC METABOLIC PANEL Routine 08/01/2024 5:24 AM JEWELRY CASTING MODEL MAKER CBC W/DIFF AUTOMATED STAT 08/01/2024 5:24 AM JEWELRY CASTING MODEL MAKER POCT GLUCOSE - VALLECILLO DOCKED DEVICE Routine 07/31/2024 8:41 PM JEWELRY CASTING MODEL MAKER POCT GLUCOSE - VALLECILLO DOCKED DEVICE Routine 07/31/2024 6:13 PM JEWELRY CASTING MODEL MAKER URINE BACTERIA CULTURE STAT 4:57 PM JEWELRY CA[employer]ING MODEL MAKER HC URINALYSIS AUTO W/MICRO STAT 07/31/2024 4:57 PM JEWELRY CASTING MODEL MAKER XR CHEST PORTABLE STAT 07/31/2024 3:5 5 PM JEWELRY CA[employer]ING MODEL MAKER CULTURE, BACTERIA, BLOOD STAT 07/31/2024 3:43 PM JEWELRY CASTING MODEL MAKER PRO-BRAIN NATRIURETIC PEPTIDE STAT 07/31/2024 3:36 PM JEWELRY CASTING MODEL MAKER MAGNESIUM STAT 07/31/2024 3:36 PM JEWELRY CASTING MODEL MAKER LACTIC ACID W REFLEX (SEPSIS) STAT 07/31/2024 3:36 PM JEWELRY CASTING MODEL MAKER TROPONIN, QUANT STAT 07/31/2024 3:36 PM JEWELRY CASTING MODEL MAKER COMPREHENSIVE METABOLIC PANEL STAT 07/31/2024 3:36 PM JEWELRY CASTING MODEL MAKER PROTHROMBIN TIME, VENOUS STAT 07/31/2024 3:36 PM JEWELRY CA[employer]ING MODEL MAKER CBC W/DIFF AUTOMATED STAT 07/31/2024 3:36 PM JEWELRY CASTING MODEL MAKER ECG 12-LEAD Routine 07/31/2024 3:32 PM JEWELRY CASTING [employer] MAKER CT ABD+PEL WO CON STAT 11/17/2023 3:0 8 PM CDT Rt flank pain HEPATITIS C ANTIBODY Routine 12/24/2022 3:05 PM CDT Decreased GFR LIPID PANEL Routine 02/01/2022 11:27 AM CDT COLONOSCOPY 01/27/2022 6:48 AM CDT from Last 3 Months or Most Recently Relevant to Health Maintenance Results * (ABNORMAL) POCT glucose (09/21/2024 6:26 AM JEWELRY CASTING MODEL MAKER) Only the most recent of120 resultswithin the time period is included. GLUCOSE POC 123(H) 70 - 109 09/21/2024 6:31 AM JEWELRY CASTING MODEL MAKER [facility] 09/21/2024 6:26 AM JEWELRY CASTING MODEL MAKER Ronen Street MD POCT ORDERABLES - DEVICE Final Result [facility] [address] [place] [id number], [id number] * (ABNORMAL) BASIC METABOLIC PANEL (09/21/2024 5:45 AM JEWELRY CASTING MODEL MAKER) Only the most recent of10 resultswithin the time period is included. [facility] SODIUM S/P/B 137 136 - 145 MMOL/L 09/21/2024 6:45 AM [facility] POTASSIUM S/P/B 4.3 3.5 - 5.1 MMOL/L 09/21/2024 6:45 AM [facility] CHLORIDE S/P/B 101 97 - 115 MMOL/L 09/21/2024 6:45 AM [facility] CO2 32.6(H) 21.0 - 32.0 MMOL/L 09/21/2024 6:45 AM [facility] GLUCOSE 129(H) 74 - 106 MG/DL 09/21/2024 6:45 AM [facility] BUN 30(H) 7 - 18 MG/DL 09/21/2024 6:45 AM [facility] CREATININE S/P/B 1.24 0.70 - 1.30 MG/DL 09/21/2024 6:45 AM J[employer]ING [employer]DEL MAKER [facility] CALCIUM S/P/B 9.0 8.5 - 10.1 MG/DL 09/21/2024 6:45 AM J[employer]EL[employer]ING [employer]DEL MAKER [facility] ANION GAP 3.4 2.0 - 10.0 MMOL/L 09/21/2024 6:45 AM JEWEL[employer] CA[employer]ING [employer]DEL MAKER [facility] OSMOLALITY (CALC) 292 MOSM/KG 025 6:45 AM JEWELRY [employer]ING MODEL MAKER [facility] Comment:REFERENCE RANGE NOT ESTABLISHED GFR ESTIMATE 63(L) >90 ML/MIN/1. 73 M2 09/21/2024 6:45 AM JEWELRY [employer]ING [employer]DEL MAKER [facility] GFR NOTES GFR REFERENCE S: 09/21/2024 6:45 AM [facility] Comment: THE ESTIMATED [...] ml/min/1.73 m2 G5,KIDNEY FAILURE: <15 ml/min/1.73 m2 09/21/2024 5:45 AM JEWELRY CASTING MODEL MAKER us [address] MD LABORATORY Final Res ult [facility] [address] [place] [address], [id number] * MAGNESIUM (09/21/2024 5:45 AM JEWELRY CASTING MODEL MAKER) Only the most recent of18 resultswithin the time period is included. MAGNESIUM 2.4 1.6 - 2.6 MG/DL 09/21/2024 6:45 AM JEWELRY CA[employer]ING [employer]DEL MAKER [facility] 09/21/2024 5:45 AM JEWELRY CASTING MODEL MAKER us [address] MD LABORATORY Final Res ult Performing Organization Address [facility] de Phone Number [facility] [address] [place] [address], [phone] * (ABNORMAL) PROTIME/INR, VENOUS (PROTHROMBIN TIME) (09/21/2024 3:33 AM JEWELRY CASTING MODEL MAKER) Only the most recent of27 resultswithin the time period is included. PROTIME 21.4(H) 9.4 - 12.5 SEC 09/21/2024 4:02 AM JEWELRY CASTING MODEL MAKER [facility] INR 1.8(H) 0.8 - 1.1 09/21/2024 4:02 AM JEWELRY CA[employer]ING MODEL MAKER [facility] 09/21/2024 3:33 AM JEWELRY CA[employer]ING MODEL MAKER us Kelly Wilson MD LABORATORY Final Result Performing Organization Address [facility] de Phone Number [facility] [address] [place] [address], [phone] * (ABNORMAL) RENAL FUNCTION PANEL (09/18/2024 3:29 AM JEWELRY CASTING MODEL MAKER) Only the most recent of3 resultswithin the time period is included. SODIUM S/P/B 137 136 - 145 MMOL/L 09/18/2024 4:18 AM JEWELRY CASTING MODEL MAKER [facility] POTASSIUM S/P/B 4.3 3.5 - 5.1 MMOL/L 09/18/2024 4:18 AM JEWELRY CA[employer]ING [employer]DEL MAKER [facility] CHLORIDE S/P/B 101 97 - 115 MMOL/L 09/18/2024 4:18 AM JEWEL[employer]ING [employer]DEL MAKER [facility] CO2 33.4(H) 21.0 - 32.0 MMOL/L 09/18/2024 4:18 AM [facility] GLUCOSE 91 74 - 106 MG/DL 09/18/2024 4:18 AM [facility] BUN 32(H) 7 - 18 MG/DL 09/18/2024 4:18 AM [facility] CREATININE S/P/B 1.23 0.70 - 1.30 MG/DL 09/18/2024 4:18 AM [facility] CALCIUM S/P/B 8.8 8.5 - 10.1 MG/DL 09/18/2024 4:18 AM [facility] ALBUMIN S/P/B 2.7(L) 3.4 - 5.0 G/DL 09/18/2024 4:18 AM [facility] PHOSPHORUS 3.5 2.5 - 4.9 MG/DL 09/18/2024 4:18 AM [facility] ANION GAP 2.6 2.0 - 10.0 MMOL/L 09/18/2024 4:18 AM [facility] OSMOLALITY (CALC) 290 MOSM/KG 025 4:18 AM [facility] Comment:REFERENCE RANGE NOT ESTABLISHED GFR ESTIMATE 63(L) >90 ML/MIN/1. 73 M2 09/18/2024 4:18 AM [facility] GFR NOTES GFR REFERENCE S: 09/18/2024 4:18 AM [facility] Comment: THE ESTIMATED [...] ml/min/1.73 m2 G5,KIDNEY FAILURE: <15 ml/min/1.73 m2 09/18/2024 3:29 AM J[employer]EL[employer]ING [employer]DEL MAKER Ludy Romero MD LABORATORY Final Result Performing Organization Address [facility]/ZIP Co de Phone Number [facility] [address] [place] [address], [phone] * (ABNORMAL) Blood gas, venous (09/17/2024 3:43 AM JEWELRY CASTING MODEL MAKER) Only the most recent of12 resultswithin the time period is included. PH VENOUS 7.32 7.32 - 7.42 09/17/2024 3:57 AM J[employer]ELRY CASTING [employer]DEL MAKER [facility] PCO2 VENOUS 67.6(H) 41.0 - 51.0 MMHG 09/17/2024 3:57 AM J[employer]EL[employer]ING [employer]DEL MAKER [facility] PO2 VENOUS 23.3(L) 25.0 - 40.0 MM HG 09/17/2024 3:57 AM JEWELRY CA[employer]ING [employer]DEL MAKER [facility] BICARB VENOUS 34.2(H) 24 - 28 MMOL/L 09/17/2024 3:57 AM J[employer]EL[employer]ING [employer]DEL MA[employer] [facility] TOTAL CO2 VENOUS 36.2(H) 25.0 - 29.0 MMOL/L 09/17/2024 3:57 AM [employer] [facility] BASE EXCESS VENOUS 6.7(H) 0 - 2 MMOL/L 09/17/2024 3:57 AM [employer] [facility] O2 SAT VENOUS 35 <75 % 09/17/2024 3:57 AM [employer] [facility] 09/17/2024 3:43 AM [employer] Keyona Miller MD LABORATORY Fi nal Result Performing Organization Address [facility]/ZIP Co de Phone Number [facility] [address] [place] [address], [phone] * PHOSPHORUS, INORGANIC PHOSPHATE (09/17/2024 3:43 AM [employer]) Only the most recent of15 resultswithin the time period is included. PHOSPHORUS 3.3 2.5 - 4.9 MG/DL 09/17/2024 4:16 AM [employer] [facility] 09/17/2024 3:43 AM [employer] us Keyona Miller MD LABORATORY Fi nal Result Performing Organization Address [facility] de Phone Number [facility] [address] [place] [address], [place] [phone] * Bedside spirometry (09/15/2024 9:45 AM [employer]) 09/15/2024 9:45 AM [employer] us Suly Howard CISO PFT ORDERABLES Final Result Performing Organization Address [facility] de Phone Number [address] * (ABNORMAL) CBC, AUTO, NO DIFF (09/15/2024 5:04 AM [employer]) WBC 11.65(H) 4.00 - 10.80 x10'3/uL 09/15/2024 5:59 AM [employer] [facility] RBC 3.90(L) 4.50 - 6.10 x10'6/uL 09/15/2024 5:59 AM [employer] [facility] HGB 11.2(L) 12.0 - 16.0 G/DL 09/15/2024 5:59 AM [employer] [facility] HCT 37.1 37.0 - 52.0 % 09/15/2024 5:59 AM [employer] [facility] MCV 95.1 78.0 - 100.0 FL 09/15/2024 5:59 AM [employer] [facility] MCH 28.7 27.0 - 31.0 PG 09/15/2024 5:59 AM [employer] [facility] MCHC 30.2(L) 33.0 - 36.0 G/DL 09/15/2024 5:59 AM [facility] RDW 15.6(H) 11.5 - 14.5 % 09/15/2024 5:59 AM [facility] PLT 133(L) 150 - 350 x10'3/uL 09/15/2024 5:59 AM [facility] MPV 13.9(H) 7.4 - 10.4 FL 09/15/2024 5:59 AM [facility] 09/15/2024 5:04 AM [employer] Kelly Wilson MD LABORATORY Final Result [facility] [address] [place] [address], [phone] * (ABNORMAL) COMPREHENSIVE METABOLIC PANEL (09/14/2024 3:48 AM [employer]) Only the most recent of16 resultswithin the time period is included. SODIUM S/P/B 137 136 - 145 MMOL/L 09/14/2024 4:32 AM [facility] POTASSIUM S/P/B 4.1 3.5 - 5.1 MMOL/L 09/14/2024 4:32 AM [facility] CHLORIDE S/P/B 101 97 - 115 MMOL/L 09/14/2024 4:32 AM [facility] CO2 31.4 21.0 - 32.0 MMOL/L 09/14/2024 4:32 AM [facility] GLUCOSE 228(H) 74 - 106 MG/DL 09/14/2024 4:32 AM [facility] BUN 46(H) 7 - 18 MG/DL 09/14/2024 4:32 AM [facility] CREATININE S/P/B 1.39(H) 0.70 - 1.30 MG/DL 09/14/2024 4:32 AM [facility] CALCIUM S/P/B 8.6 8.5 - 10.1 MG/DL 09/14/2024 4:32 AM [facility] BILIRUBIN TOTAL S/P/B 0.7 0.2 - 1.0 MG/DL 09/14/2024 4:32 AM [facility] ALKALINE PHOSPHATASE S/P/B 114 45 - 115 U/L 09/14/2024 4:32 AM [facility] AST 18 15 - 37 U/L 09/14/2024 4:32 AM [facility] ALT 31 16 - 61 U/L 09/14/2024 4:32 AM [facility] TOTAL PROTEIN S/P/B 6.9 6.4 - 8.2 G/DL 09/14/2024 4:32 AM [facility] ALBUMIN S/P/B 2.5(L) 3.4 - 5.0 G/DL 09/14/2024 4:32 AM [facility] ANION GAP 4.6 2.0 - 10.0 MMOL/L 09/14/2024 4:32 AM [facility] OSMOLALITY (CALC) 303 MOSM/KG 025 4:32 AM [facility] Comment:REFERENCE RANGE NOT ESTABLISHED GFR ESTIMATE 55(L) >90 ML/MIN/1. 73 M2 09/14/2024 4:32 AM [facility] GFR NOTES GFR REFERENCE S: 09/14/2024 4:32 AM [facility] Comment: THE ESTIMATED [...] ml/min/1.73 m2 G5,KIDNEY FAILURE: <15 ml/min/1.73 m2 09/14/2024 3:48 AM [employer] us Juanpablo Pandey MD LABORATORY Final Result [facility] [address] [place] [address], [phone] * (ABNORMAL) CBC W/DIFF AUTOMATED (09/14/2024 3:48 AM JEWELRY [employer]ING [employer]DEL [employer]KER) Only the most recent of19 resultswithin the time period is included. WBC 14.68(H) 4.00 - 10.80 x10'3/uL 09/14/2024 4:24 AM [facility] RBC 3.77(L) 4.50 - 6.10 x10'6/uL 09/14/2024 4:24 AM [facility] HGB 10.9(L) 12.0 - 16.0 G/DL 09/14/2024 4:24 AM [facility] HCT 35.8(L) 37.0 - 52.0 % 09/14/2024 4:24 AM [facility] MCV 95.0 78.0 - 100.0 FL 09/14/2024 4:24 AM [employer] [facility] MCH 28.9 27.0 - 31.0 PG 09/14/2024 4:24 AM [facility] MCHC 30.4(L) 33.0 - 36.0 G/DL 09/14/2024 4:24 AM [facility] RDW 15.3(H) 11.5 - 14.5 % 09/14/2024 4:24 AM [facility] PLT 134(L) 150 - 350 x10'3/uL 09/14/2024 4:24 AM [facility] MPV 14.0(H) 7.4 - 10.4 FL 09/14/2024 4:24 AM [facility] DIFFERENTIAL TYPE AUTOMATED DIFFERENTIAL 09/14/2024 4:25 AM [facility] SEG NEUTROPHILS 83.6 % 4:25 AM [facility] LYMPHOCYTES 6.5 % 09/14/2024 4:25 AM [facility] MONOCYTES 7.6 % 09/14/2024 4:25 AM [facility] EOSINOPHILS 0.3 % 09/14/2024 4:25 AM [facility] BASOPHILS 0.2 % 09/14/2024 4:25 AM [facility] IMMATURE GRANS % 1.8 % 09/14/19 4:25 AM [facility] ABS. NEUTROPHILS 12.26(H) 1.60 - 8.30 x10'3/uL 09/14/2024 4:25 AM [facility] ABS. LYMPHOCYTES 0.96 0.80 - 4.70 x10'3/uL 09/14/2024 4:25 AM [facility] ABS. MONOCYTES 1.12 0.00 - 1.50 x10'3/uL 09/14/2024 4:25 AM [facility] ABS. EOSINOPHILS 0.04 0.00 - 0.40 x10'3/uL 09/14/2024 4:25 AM [facility] ABS. BASOPHILS 0.03 0.00 - 0.20 x10'3/uL 09/14/2024 4:25 AM [facility] ABS. IMMATURE GRANULOCYTES 0.27(H) 0.00 - 0.03 x10'3/uL 09/14/2024 4:25 AM [facility] ABS. NUCLEATED RBC'S 0.00 0.00 - 0.01 x10'3/uL 09/14/2024 4:25 AM [facility] NRBC % 0.0 % 09/14/2024 4:25 AM [employer] [facility] 09/14/2024 3:48 AM J[employer] Juanpablo Pandey MD LABORATORY Final Result Performing Organization Address [facility]/State/ZIP Co de Phone Number [facility] [address] [place] [address], [phone] * ECG 12 lead (09/11/2024 5:38 AM J[employer]ELRY [employer]ING [employer]KER) Only the most recent of4 resultswithin the time period is included. 09/11/2024 5:38 AM J[employer]ELRY [employer]ING [employer]DEL [employer]KER Narrative [facility] - 09/11/2024 10:42 AM JEWELRY CASTING MODEL MAKER ? [facility] ?[address], [place] ??[address] ? Test Date: ?2024-09-11 Pat Name: ? OBIE SIMS ?Department: ?? 1 ? Room: ? 516AA Gender: ? Male ? 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 Ll : ?1955 ? Requested By: JUANPABLO PANDEY Order Number: [id number] ? Reading : ?? Ronni Daniel ? Measurements Intervals ?Gateway ? Rate: ? 81 ? P: ? [place]: ? 0 ?QRS: ?-38 QRSD: ? 137 ?T: ?119 QT: ? 416 ? QTc: ?486 ? Interpretive Statements ATRIAL FIBRILLATION WITH ABERRANT CONDUCTION OR VENTRICULAR PREMATURE COMPLEXES LEFT AXIS DEVIATION ??[QRS AXIS < -30] INTRAVENTRICULAR CONDUCTION DELAY ??[130+ ms QRS DURATION] LRY [employer]ING MODEL MAKER Procedure Note Ronni Sanchez MD - 09/11/2024 [facility] [address] [place] [address] Test Date: 2024-09-11 Pat Name: OBIE SIMS [facility] [employer] Maintenance Supervisor: Prabha : 1955 Requested By: JUANPABLO PANDEY Order Number: [id number] Reading MD: Ronni Sanchez Measurements Intervals Gateway Rate: 81 P: [place]: 0 QRS: -38 QRSD: 137 T: 119 QT: 416 QTc: 486 Interpretive Statements ATRIAL FIBRILLATION WITH ABERRANT CONDUCTION OR VENTRICULAR PREMATURE COMPLEXES LEFT AXIS DEVIATION [QRS AXIS < -30] INTRAVENTRICULAR CONDUCTION DELAY [130+ ms QRS DURATION] LRY CA[employer]ING MODEL MAKER Juanpablo Pandey MD ECG ORDERABLES Final Result [facility] * XR CHEST PORTABLE (09/09/2024 6:02 AM JEWELRY [employer]ING [employer]DEL [employer]KER) Only the most recent of10 resultswithin the time period is included. Anatomical Region Laterality Modality Chest Radiographic Kenia ging 09/09/2024 6:33 AM J[employer]ER Impressions 09/09/2024 6:34 AM J[employer]RY [employer]ING [employer]DEL [employer]KER IMPRESSION: 1. ??CARDIOMEGALY WITH INTERVAL INCREASE IN PULMONARY VASCULAR CONGESTION AND EDEMA. Signed: Rigoberto Calderon MD Referred By: PROVIDER NON-STAFF Interpreted By: Rigoberto Calderon MD, 09/09/2024 6:33 AM Narrative 09/09/2024 6:34 AM J[employer] [address] [address] PATIENT NAME: OBIE SIMS EXAM: Chest one view DATE OF EXAM: 09/09/2024 COMPARISON EXAM: 09/06/2024 INDICATION: Respiratory failure, mechanical ventilation, CHF TECHNIQUE: AP chest FINDINGS: Shallow inspiration. ??Post midline sternotomy changes are noted. ??Right arm PICC line placement unchanged. ??Endotracheal tube and NG tube have been removed. ??There is cardiomegaly with interval increase in pulmonary vascular congestion and edema. ??No airspace consolidation or pleural effusion. Procedure Note Rigoberto Calderon MD - 09/09/[address] [address] PATIENT NAME: OBIE SIMS EXAM: Chest one view DATE OF EXAM: 09/09/2024 COMPARISON EXAM: 09/06/2024 INDICATION: Respiratory failure, mechanical ventilation, CHF TECHNIQUE: AP chest FINDINGS: Shallow inspiration. Post midline sternotomy changes are noted.Right arm PICC line placement unchanged. Endotracheal tube and NG tubehave been removed. There is cardiomegaly with interval increase inpulmonary vascular congestion and edema. No airspace consolidation orpleural effusion. IMPRESSION: 1. CARDIOMEGALY WITH INTERVAL INCREASE IN PULMONARY VASCULAR CONGESTIONAND EDEMA. Signed: Rigoberto Calderon MD Referred By: PROVIDER NON-STAFF Interpreted By: Rigoberto Calderon MD, 09/09/2024 6:33 AM us Keyona Miller MD GENERAL IMAGING Fi nal Result * Vancomycin Random Level (09/08/2024 10:37 AM JEWELRY [employer]ING [employer]KER) Only the most recent of3 resultswithin the time period is included. VANCOMYCIN RANDOM 16.2 MCG/ML 09/08/2024 11:07 AM J[employer]ING [employer]DEL [employer]KER [facility] Comment:REFERENCE RANGE NOT ESTABLISHED 09/08/2024 10:3 7 AM J[employer]ING [employer]DEL [employer] us Keyona Miller MD LABORATORY Fi nal Result [facility] [address] [place] [address], [id number] * XR SPEECH SWALLOW SJS ONLY (09/07/2024 1:50 PM JEWELRY [employer]ING [employer]DEL [employer]KER) Only the most recent of2 resultswithin the time period is included. Anatomical Region Laterality Modality NA Fluoroscopy 09/08/2024 7:2 0 AM J[employer]ING [employer]DEL [employer]ER Impressions 09/11/2024 9:44 AM J[employer]ING [employer]DEL [employer]KER IMPRESSION: Swallowing abnormalities as above. Please see speech pathology report for additional details. Ordered By: JUANPABLO PANDEY Interpreted By: Yimi Li MD, 09/08/2024 7:20 AM Narrative 09/11/2024 9:44 AM J[employer]RY [employer] [address] [address] EXAMINATION: Video oropharyngeal swallow study CLINICAL HISTORY: Dysphasia.. EXAMINATION TECHNIQUE: A video oropharyngeal swallow study was performed to the lateral projection in conjunction with speech pathologist. The patient was challenged with multiple consistencies including thin, nectar, honey, puree, and hard solid. COMPARISON: 09/01/2024. FLUOROSCOPY TIME: 3.7 minutes. REFERENCE AIR KERMA (Ka.r): 24.1 mGy FINDINGS: Anterior-posterior transit was extended, with partial buccal loss of liquids noted at times. Trigger of the pharyngeal swallow was delayed, with premature spillage to pyriform sinuses with liquid consistencies. Tongue base retraction was reduced; laryngeal elevation was reduced; anterior excursion of the larynx was reduced; epiglottic inversion was reduced; pharyngeal stripping wave was reduced. There were mild to moderate residuals in the valleculae after the swallow. Shallow, flash penetration with mildly thick and moderately thick liquids. Sustained penetration with and without chin tuck with thin liquids, which could indicate impending aspiration. No direct aspiration observed on study. Trace residual in oropharynx post trials. Patient demonstrated episodes of coughing during the study, which appeared mostly unrelated to swallow. Procedure Note Yimi Li MD - 09/11/[address] [address] EXAMINATION: Video oropharyngeal swallow study CLINICAL HISTORY: Dysphasia.. EXAMINATION TECHNIQUE: A video oropharyngeal swallow study was performedto the lateral projection in conjunction with speech pathologist. Thepatient was challenged with multiple consistencies including thin, nectar,honey, puree, and hard solid. COMPARISON: 09/01/2024. FLUOROSCOPY TIME: 3.7 minutes. REFERENCE AIR KERMA (Ka.r): 24.1 mGy FINDINGS: Anterior-posterior transit was extended, with partial buccal loss ofliquids noted at times. Trigger of the pharyngeal swallow was delayed,with premature spillage to pyriform sinuses with liquid consistencies.Tongue base retraction was reduced; laryngeal elevation was reduced;anterior excursion of the larynx was reduced; epiglottic inversion wasreduced; pharyngeal stripping wave was reduced. There were mild tomoderate residuals in the valleculae after the swallow. Shallow, flashpenetration with mildly thick and moderately thick liquids. Sustainedpenetration with and without chin tuck with thin liquids, which couldindicate impending aspiration. No direct aspiration observed on study.Trace residual in oropharynx post trials. Patient demonstrated episodes ofcoughing during the study, which appeared mostly unrelated to swallow. IMPRESSION: Swallowing abnormalities as above. Please see speech pathology report foradditional details. Ordered By: JUANPABLO PANDEY Interpreted By: Yimi Li MD, 09/08/2024 7:20 AM us Juanpablo Pandey MD FLUOROSCOPY Final Result * (ABNORMAL) POCT ACUTE VENOUS PANEL (09/07/2024 3:47 AM JEWELRY [employer]ING [employer]DEL MAKER) Only the most recent of5 resultswithin the time period is included. SODIUM WHOLE BLOOD 159(H) 138 - 146 mmol/L 09/07/2024 4:02 AM [facility] POTASSIUM WHOLE BLOOD 3.8 3.5 - 4.9 mmol/L 09/07/2024 4:02 AM [facility] CA IONIZED WH BLOOD 1.18 1.12 - 1.32 mmol/L 09/07/2024 4:02 AM [facility] POC PH VENOUS 7.371 7.31 - 7.41 09/07/2024 4:02 AM [facility] POC PCO2 VENOUS 54.9(H) 41.0 - 51.0 MMHG 09/07/2024 4:02 AM [facility] POC PO2 VENOUS 35 25 - 40 MMHG 09/07/2024 4:02 AM [facility] POC HCO3 VENOUS 31.9(H) 23 - 28 MMOL/L 09/07/2024 4:02 AM [facility] POC TCO2 VENOUS 34(H) 24 - 29 MMOL/L 09/07/2024 4:02 AM [facility] POC BASE EXCESS VENOUS 7(H) 0 - 3 MMOL/L 09/07/2024 4:02 AM [facility] POC HEMATOCRIT 36(L) 38 - 51 % 09/07/2024 4:02 AM [facility] TIME TEST WAS PERFORMED: 347 09/07/2024 4:02 AM [facility] 09/07/2024 3:47 AM J[employer] us Keyona Miller MD POCT ORDERABLES - DEVICE Final Result Performing Organization Address [facility] de Phone Number [facility] [address] [place] [address], [place] [phone] * CULTURE, RESPIRATORY W/ GRAM STAIN (09/05/2024 7:40 AM JEWELRY CA[employer]ING MODEL MAKER) SPEC DESCRIPTION TRACHEAL ASPIRATE 09/05/2024 7:40 AM [facility] SPECIAL REQUESTS NO SPECIAL REQUEST 09/05/2024 7:40 AM [facility] GRAM STAIN RESULT <10 EPITHELIAL CELLS PER LPF 09/05/2024 9:53 AM [facility] GRAM STAIN RESULT >25 NEUTROPHILS PER LPF 09/05/2024 9:53 AM [facility] GRAM STAIN RESULT NO ORGANISMS SEEN 09/05/2024 9:53 AM [facility] CULTURE RESULT NO GROWTH 5 DAYS 09/10/2024 10:31 AM [facility] SPECIMEN FROM TRACHEA OBTAINED BY ASPIRATION / Unknown 09/05/2024 7:40 AM J[employer]ELRY [employer]ING [employer]DEL MAKER 09/05/2024 7:51 AM JEWELRY [employer]ING [employer]DEL MAKER us Jean Lindsay MD MICROBIOLOGY - GENERAL ORDER BAKARI Final Result Performing Organization Address [facility] Co de Phone Number [facility] [address] [place] [address], [phone] * USV VAST TEAM PICC INSERT >5YR (09/04/2024 11:10 AM JEWELRY CA[employer]ING MODEL MAKER) Anatomical Region Laterality Modality NA Vascular Ultraso und 09/04/2024 9:45 AM JEWELRY [employer]ING [employer]DEL MAKER Narrative 09/04/2024 9:45 AM JEWELRY [employer]ING [employer]DEL [employer]KER This report does not contain a radiologist's interpretation. Please review associated procedure and/or operative report. Procedure Note Eun Tovar MD - 09/04/2024 This report does not contain a radiologist's interpretation. Please review associated procedure and/or operative report. Keyona Miller MD VASC Fi nal Result * USV MARIA ALEJANDRA DUPLEX LOW EXT ELZA (09/04/2024 9:03 AM JEWELRY CA[employer]ING MODEL MAKER) Anatomical Region Laterality Modality Extremity Ultrasound 09/04/2024 8:25 AM JEWELRY [employer]ING [employer]DEL [employer]KER Narrative 09/04/2024 9:17 AM JEWELRY CA[employer]ING MODEL MAKER ?Vascular Report Pat.Name: ??OBIE SIMS ?Pat.ID: ?[id number] ? St.Date: ?? 09/04/2024 ? Refer.MD: ??JUAN FRANCISCO RUBI ? Exam Time: 8:25:00 AM ? Study Type:PVI VENOUS DUPLEX SCAN-LEGS BILAT Height: ?168 cm ?Age: ??1955,69Y ? Sex: ? M ? Sonogrphr: RAMIN Cortez ? Pat. Stat.:Inpatient ? Room: ?ICUB-11 ? ICD - 9: ?? R06.02 Shortness of Breath CPT - 4: ?59223 Venous Duplex LE/UE Reason for Study:Shortness of Breath Race: ?W ? Bilat: ?No evidence of acute or chronic thrombosis noted in the deep ?or superficial veins in either lower extremity. <Electronic Signature> 09/04/2024 09:17 AM Lawrence Blankenship M.D. Procedure Note Lawrence Blankenship MD - 09/04/2024 Vascular Report Pat.Name: OBIE SIMS Pat.ID: [id number] St.Date: 09/04/2024 Refer.MD: JUAN FRANCISCO RUBI Exam Time: 8:25:00 AM Study Type:PVI VENOUS DUPLEX SCAN-LEGS BILAT Height: 168 cm Age: 12 1955,69Y Sex: M Sonogrphr: RAMIN Cortez Pat. Stat.:Inpatient Room: [place] [address] ICD - 9: R06.02 Shortness of Breath CPT - 4: 23221 Venous Duplex LE/UE Reason for Study:Shortness of Breath Race: W Bilat: No evidence of acute or chronic thrombosis noted in the deep or superficial veins in either lower extremity. <Electronic Signature> 09/04/2024 09:17 AM Lawrence Blankenship M.D. Juan Francisco Rubi MD VASC Final Result * (ABNORMAL) TROPONIN, QUANT (09/04/2024 8:00 AM JEWELRY CASTING MODEL MAKER) Only the most recent of4 resultswithin the time period is included. Pathologist [facility] TROPONIN I HIGH SENSITIVITY 136(H) 0 - 78 ng/L 09/04/2024 8:55 AM JEWELRY CA[employer]ING MODEL MAKER [facility] 09/04/2024 8:00 AM J[employer]RY [employer]ING [employer]DEL [employer]KER Deya Jiménez MD LABORATORY Final Result Performing Organization Address [facility] Co de Phone Number [facility] [address] [place] [address], [phone] * HEPARIN, ANTI XA, UFH (09/04/2024 6:17 AM JEWELRY CASTING MODEL MAKER) Only the most recent of3 resultswithin the time period is included. Pathologist [facility] HEPARIN ANTI XA UFH 0.41 0.30 - 0.70 IU/ML 09/04/2024 7:03 AM JEWELRY CASTING MODEL MAKER [facility] Comment: UFH Therapeutic Anti Xa Ranges: Medical Therapeutic Range: 0.30 - 0.70 IU/mL Cardiac Therapeutic Range: 0.30 - 0.50 IU/mL Neuro Therapeutic Range: 0.20 - 0.40 IU/mL 09/04/2024 6:17 AM JEWELRY [employer]ING [employer]DEL MAKER Keyona Miller MD LABORATORY Fi nal Result Performing Organization Address [facility]/ZIP Co de Phone Number [facility] [address] [place] [address], [phone] * INTUBATION (09/03/2024 9:08 PM JEWELRY CASTING MODEL MAKER) Juan Francisco Garcia MD - 09/03/2024 9:08 PM JEWELRY CASTING MODEL MAKER Juan Francisco Rubi MD ? 09/03/2024 ??9:09 PM INTUBATION Date/Time: 09/03/2024 9:08 PM Performed by: Juan Francisco Rubi MD Authorized by: Juan Francisco Rubi MD ??Consent: The procedure was performed in an emergent situation. Verbal consent obtained. Risks and benefits: risks, benefits and alternatives were discussed Consent given by: patient Patient understanding: patient states understanding of the procedure being performed Patient consent: the patient's understanding of the procedure matches consent given Procedure consent: procedure consent matches procedure scheduled Relevant documents: relevant documents present and verified Test results: test results available and properly labeled Site marked: the operative site was marked Imaging studies: imaging studies available Patient identity confirmed: arm band and hospital-assigned identification number Time out: Immediately prior to procedure a time out was called to verify the correct patient, procedure, equipment, manager product support and site/side marked as required. Indications: hypoxemia and respiratory distress Intubation method: video-assisted Patient status: paralyzed (RSI) Sedatives: etomidate Paralytic: rocuronium Tube size: 7.5 mm Tube type: cuffed Number of attempts: 1 Cricoid pressure: no Cords visualized: yes Post-procedure assessment: CO2 detector Breath sounds: equal Cuff inflated: yes ETT to lip: 24 cm Tube secured with: ETT allred Patient tolerance: patient tolerated the procedure well with no immediate complications Juan Francisco Rubi MD PROCEDURE/MINOR SURGICAL ORDERAB LES Final Result * (ABNORMAL) PRO-BRAIN NATRIURETIC PEPTIDE (PRO BNP) (09/03/2024 8:29 PM JEWELRY CASTING MODEL MAKER) Only the most recent of3 resultswithin the time period is included. PRO-B TYPE NATRIURETIC PEPTIDE 28,171(H) <125 PG/ML 09/03/2024 9:13 PM JEWELRY CASTING MODEL MAKER [facility] Comment: AGE INDEPENDENT: [...] OF 89% AND 72% FOR ACUTE CHF. 09/03/2024 8:29 PM JEWELRY CASTING MODEL MAKER us Deya Jiménez MD LABORATORY Final Result Performing Organization Address [facility] Co de Phone Number [facility] [address] [place] [address], [phone] * LACTIC ACID (09/03/2024 8:29 PM JEWELRY CASTING MODEL MAKER) LACTIC ACID VENOUS 1.5 0.4 - 2.0 MMOL/L 09/03/2024 9:11 PM JEWELRY CA[employer]ING MODEL MAKER [facility] 09/03/2024 8:29 PM JEWELRY CASTING MODEL MAKER us Deya Jiménez MD LABORATORY Final Result Performing Organization Address [facility] de Phone Number [facility] [address] [place] [address], [phone] * (ABNORMAL) ARTERIAL BLOOD GAS (09/03/2024 8:29 PM JEWELRY CASTING MODEL MAKER) Only the most recent of2 resultswithin the time period is included. PH ARTERIAL 7.25(L) 7.35 - 7.45 09/03/2024 8:53 PM JEWELRY CASTING MODEL MAKER [facility] PCO2 73.9(HH) 35.0 - 45.0 MMHG 09/03/2024 8:53 PM JEWELRY CASTING MODEL MAKER [facility] Comment: CRITICAL RESULT, SPECIMEN DATE, TIME WERE READ BACK BY RN [id number] LENARD PO2 88.4 83.0 - 108.0 MMHG 09/03/2024 8:53 PM JEWELRY CASTING MODEL MAKER [facility] BICARB ARTERIAL 31.2(H) 22 - 26 MMOL/L 09/03/2024 8:53 PM JEWELRY CA[employer]ING MODEL MAKER [facility] TOTAL CO2 CAPILLARY 33.5(H) 23 - 27 MMOL/L 09/03/2024 8:53 PM [facility] BE/BASE EXCESS 2.0 0 - 2 MMOL/L 09/03/2024 8:53 PM [facility] O2 Saturation 95 95 - 98 % 09/03/2024 8:53 PM [facility] HEATHER TEST POSITIVE 09/03/2024 8:29 PM [facility] OXYGEN STATUS by pap 09/03/2024 8:29 PM [facility] DRAW SITE ARTERIAL LT RADIAL 09/03/2024 8:29 PM [facility] 09/03/2024 8:29 PM JEWELRY CA[employer]ING MODEL MAKER us Deya Jiménez MD LABORATORY Final Result [facility] [address] [place] [phone], [phone] * (ABNORMAL) POCT ACUTE ARTERIAL PANEL (09/03/2024 8:28 PM JEWELRY CASTING MODEL MAKER) SODIUM WHOLE BLOOD 150.0(H) 138 - 146 mmol/L 09/18/2024 11:07 AM [facility] POTASSIUM WHOLE BLOOD 4.30 3.5 - 4.9 mmol/L 09/18/2024 11:07 AM [facility] CA IONIZED WH BLOOD 1.22 1.12 - 1.32 mmol/L 09/18/2024 11:07 AM [facility] POC PH ARTERIAL 7.278(L) 7.35 - 7.45 09/18/2024 11:07 AM [facility] POC PCO2 ARTERIAL 73.80(H) 35.0 - 45.0 MMHG 09/18/2024 11:07 AM [facility] POC PO2 ARTERIAL 88.0 80 - 105 MMHG 09/18/2024 11:07 AM [facility] POC HCO3 ARTERIAL 34.5(H) 22 - 26 MMOL/L 09/18/2024 11:07 AM [facility] POC TCO2 ARTERIAL 37.0(H) 23 - 27 MMOL/L 09/18/2024 11:07 AM [facility] POC BASE EXCESS ARTERIAL 8(H) 0 - 3 MMOL/L 09/18/2024 11:07 AM [facility] POC HEMATOCRIT 46 38 - 51 % 09/18/2024 11:07 AM [facility] TIME TEST WAS PERFORMED: 202709/18/2024 11:07 AM JEWELRY [employer]ING [employer]DEL [employer]KER [facility] 09/03/2024 8:28 PM JEWELRY CA[employer]ING MODEL MAKER Kelly Wilson MD POCT ORDERABLES - DEVICE Final Result Performing Organization Address [facility] de Phone Number [facility] [address] [place] [address], [phone] * CULTURE, BACTERIA BLOOD (09/03/2024 12:23 PM JEWELRY CASTING MODEL MAKER) Only the most recent of3 resultswithin the time period is included. SPEC DESCRIPTION BLOOD 09/03/2024 11:59 AM [facility] SPECIAL REQUESTS NO SPECIAL REQUEST 09/03/2024 11:59 AM [facility] CULTURE RESULT NO GROWTH 5 DAYS 09/08/2024 9:25 PM JEWELRY CA[employer]ING [employer]DEL MAKER [facility] BLOOD SPECIMEN OBTAINED FOR BLOOD CULTURE / Unknown 09/03/2024 12:23 PM JEWELRY CA[employer]ING MODEL MAKER 09/03/2024 12:24 PM JEWELRY CA[employer]ING MODEL MAKER Jean Lindsay MD MICROBIOLOGY - GENERAL ORDER BAKARI Final Result Performing Organization Address [facility] Co de Phone Number [facility] [address] [place] [address], [phone] * CULTURE, URINE (09/01/2024 11:10 AM JEWELRY CASTING MODEL MAKER) Only the most recent of2 resultswithin the time period is included. SPEC DESCRIPTION URINE CLEAN CATCH 09/01/2024 2:58 PM JEWELRY CASTING MODEL MAKER [facility] SPECIAL REQUESTS NO SPECIAL REQUEST 09/01/2024 2:58 PM JEWELRY CASTING MODEL MAKER [facility] CULTURE RESULT NO GROWTH (< OR = 1,000 CFU/ML) 09/03/2024 8:35 AM JEWELRY CASTING MODEL MAKER [facility] URINE SPECIMEN OBTAINED BY CLEAN CATCH PROCEDURE / Unknown 09/01/2024 11:10 AM JEWELRY [employer]ING MODEL MAKER 09/01/2024 3:11 PM JEWELRY CASTING MODEL MAKER us Jean Lindsay MD MICROBIOLOGY - GENERAL ORDER BAKARI Final Result Performing Organization Address City/State/[facility] Co de Phone Number [facility] [address] [place] [address], [phone] * ANCA VASCULITIS PANEL (09/01/2024 8:19 AM JEWELRY CASTING MODEL MAKER) MYELOPEROXIDASE AB <1.0 <1.0 AI 2024 8:51 PM JEWELRY CASTING MODEL MAKER [employer] ALEXIS WELDON Comment: ?Value ?? Interpretation ? <1.0 AI: [...] These autoantibodies are present in active disease. C ANCA <1.0 <1.0 AI 09/04/2024 8:51 PM JEWELRY CASTING MODEL MAKER [employer]ARAH WELDON Comment: ? Value ?Interpretation ? <1.0 AI: No Antibody Detected ?>or=1.0 AI: Antibody Detected Autoantibodies to proteinase-3 (NJ-3) are accepted as characteristic for granulomatosis with polyangiitis (GPA, Sherie's), and are detectable in 95% of the histologically proven cases. The cytoplasmic IFA pattern, (c-ANCA), is based largely on autoantibody to NJ-3 which serves as the primary antigen. These autoantibodies are present in active disease. Test Performed by Teagan Martinez [employer], [address] [place] [address] Bill Blackmon M.D., Ph.D., Director of Laboratories , [facility] [id number] 09/01/2024 8:19 AM JEWELRY CASTING MODEL MAKER Ludy Romero MD LABORATORY Final Result [facility] [address] [place] [address] , * ANTI-GBM (GLOMERULAR BASEMENT MEMBRANE AB) (09/01/2024 8:19 AM JEWELRY CASTING MODEL MAKER) ANTI-GBM <1.0 <1.0 AI 09/04/2024 8:28 PM JEWELRY CASTING MODEL MAKER [facility] Comment: ?Value ?? Interpretation ? <1.0 AI: No Antibody Detected ?>or=1.0 AI: Antibody Detected Test Performed by Teagan Martinez [employer] [address] [place], [address] [place], [place] Bill Blackmon M.D., Ph.D., Director of Laboratories , [facility] [id number] 09/01/2024 8:19 AM JEWELRY CASTING MODEL MAKER Ludy Romero MD LABORATORY Final Result Performing Organization Address [facility] Co de Phone Number [facility] [place] [id number] [place], [place] , [place] [phone] * (ABNORMAL) HEMOGLOBIN, GLYCATED (09/01/2024 8:19 AM JEWELRY CASTING MODEL MAKER) HGB A1C 7.0(H) <5.7 % 09/01/2024 9:13 AM JEWELRY CASTING MODEL MAKER [facility] ESTIMATED AVG GLUCOSE 154(H) 74 - 114 MG/DL 09/01/2024 9:13 AM JEWELRY CASTING MODEL MAKER [facility] 09/01/2024 8:19 AM JEWELRY CASTING MODEL MAKER Zaria Mccarthy [facility] LABORATORY Final R esult Performing Organization Address [facility] de Phone Number [facility] [address] [place] [address], [place] [phone] * THYROID STIM HORMONE, TSH (09/01/2024 8:19 AM JEWELRY CASTING MODEL MAKER) TSH 2.000 0.358 - 3.740 uIU/ML 09/01/2024 9:11 AM JEWELRY CASTING MODEL MAKER [facility] Comment: ASSAY PERFORMED BY CHEMILUMINESCENCE METHODOLOGY USING SIEMENS [facility]ISTA REAGENT. PATIENT RESULTS DETERMINED BY ASSAYS USING DIFFERENT MANUFACTURERS FOR METHODS MAY NOT BE COMPARABLE. 09/01/2024 8:19 AM JEWELRY CASTING MODEL MAKER Zaria Mccarthy [facility] LABORATORY Final R esult Performing Organization Address City/[facility]/ZIP Co de Phone Number [facility] [address] [place] [address], [phone] * US RETROPERITONEAL LTD (08/31/2024 10:20 PM JEWELRY CASTING MODEL MAKER) Anatomical Region Laterality Modality Renal Ultrasound 09/01/2024 2:04 AM JEWELRY CASTING MODEL MAKER Impressions 09/01/2024 2:06 AM JEWELRY CASTING MODEL MAKER IMPRESSION: 1. ??No right-sided hydronephrosis. 2. ??Nonvisualized left kidney and suboptimally visualized right kidney. 3. ??Decompressed urinary bladder with Oneill catheter. Referred By: PROVIDER NON-STAFF Interpreted By: Ever Love MD, 09/01/2024 2:04 AM Narrative 09/01/2024 2:06 AM JEWELRY CASTING MODEL MAKER [address] [address] EXAMINATION: Renal ultrasound EXAM DATE/TIME: 08/31/2024 10:03 [...] Procedure Note Ever Love MD - 09/01/[address] [address] EXAMINATION: Renal ultrasound EXAM DATE/TIME: 08/31/2024 10:03 [...] * SODIUM URINE RANDOM (08/31/2024 5:12 PM JEWELRY CASTING MODEL MAKER) NA RANDOM (U) 88 MMOL/L 08/31/2024 5:38 PM JEWELRY CASTING MODEL MAKER [facility] Comment:REFERENCE RANGE NOT ESTABLISHED URINE SPECIMEN / Unknown 08/31/2024 5:12 PM JEWELRY CASTING MODEL MAKER us Ludy Romero MD URINE ORDERABLES Final Result Performing Organization Address [facility] Co de Phone Number [facility] [address] [place] [address], [phone] * CREATININE URINE RANDOM (08/31/2024 5:12 PM JEWELRY CASTING MODEL MAKER) CREATININE (U) 33.5 MG/DL 08/31/2024 5:38 PM JEWELRY CASTING MODEL MAKER [facility] Comment:REFERENCE RANGE NOT ESTABLISHED URINE SPECIMEN / Unknown 08/31/2024 5:12 PM JEWELRY CASTING MODEL MAKER us Ludy Romero MD URINE ORDERABLES Final Result Performing Organization Address [facility] Co de Phone Number [facility] [address] [place] [address], [place] [phone] * (ABNORMAL) URINALYSIS (08/31/2024 5:12 PM JEWELRY CASTING MODEL MAKER) Only the most recent of2 resultswithin the time period is included. COLOR (U) LIGHT BROWN 08/31/2024 5:34 PM [facility] TRANSPARENCY SLIGHTLY CLOUDY 08/31/2024 5:34 PM [facility] SPECIFIC GRAVITY (U) 1.009 1.002 - 1.035 08/31/2024 5:34 PM [facility] U PH 5.0 5 - 8 08/31/2024 5:34 PM [facility] PROTEIN RANDOM (U) 10(A) NEGATIVE 08/31/2024 5:34 PM [facility] GLUCOSE (U) 30(A) NEGATIVE MG/DL 08/31/2024 5:34 PM [facility] KETONES MG/DL (U) NEGATIVE NEGATIVE 08/31/2024 5:34 PM [facility] BILIRUBIN (U) NEGATIVE NEGATIVE 08/31/2024 5:34 PM [facility] BLOOD (U) 3+(A) NEGATIVE 08/31/2024 5:34 PM [facility] NITRITES NEGATIVE NEGATIVE 08/31/2024 5:34 PM [facility] UROBILINOGEN NORMAL 0 - 1 EU/DL 08/31/2024 5:34 PM [facility] LEUKOCYTES (U) 1+(A) NEGATIVE 08/31/2024 5:34 PM [facility] RBC/HPF >182(H) 0 - 3 /HPF 08/31/2024 5:34 PM [facility] Comment:PLEASE CALL THE LAB WITHIN 2 HOURS IF ACTUAL NUMBER OF CELLS IS REQUIRED. WBC/HPF 27(H) 0 - 6 /HPF 08/31/2024 5:34 PM [facility] BACTERIA (U) PRESENT /HPF 08/31/2024 5:34 PM JEWELRY CASTING MODEL MAKER [facility] SQUAMOUS EPITHELIALS <1 08/31/2024 5:34 PM JEWELRY CASTING MODEL MAKER [facility] WBC CLUMPS PRESENT 08/31/2024 5:34 PM JEWELRY CASTING MODEL MAKER [facility] HYALINE CASTS 28 08/31/2024 5:34 PM JEWELRY CASTING MODEL MAKER [facility] URINE SPECIMEN / Unknown 08/31/2024 5:12 PM JEWELRY CASTING MODEL MAKER us Ludy Romero MD URINE ORDERABLES Final Result [facility] [address] [place] [address], [phone] * USE ECHOCARDIOGRAM W CON (08/31/2024 2:02 PM JEWELRY CASTING MODEL MAKER) Anatomical Region Laterality Modality NA Echocardiogram 08/31/2024 1:13 PM JEWELRY CASTING MODEL MAKER Narrative 08/31/2024 11:02 PM JEWELRY CASTING MODEL MAKER ?Echocardiography Report Pat.Name: ??OBIE SIMS ?Pat.ID: ?[id number] ? St.Date: ?? 08/31/2024 ? Refer.: ??[id number] NON-STAFF PROVIDER ?EWDPROV ?EWDPROV Exam Time: 1:13:00 [...] ?? Value ?223 g ? LV Mass Cezsc3R ?? Value ?103 g/m2 ? RA Volume [...] Gonzáles MD - 08/31/2024 Echocardiography Report Pat.Name: BETHANYOBIE.ID: [id number] St.Date: 08/31/2024 Refer.: [id number] NON-STAFF PROVIDER EWDPROV EWDPROV Exam Time: 1:13:00 PM Study Type:ECHO W/CONTRAST COMPLETE Height: 168 cm Weight: 110 kg BSA: 2.17 m2 Age: 12 1955,69Y Sex: M BP: 117/53 HR: 84 bpm Sonogrphr: Jose Crzu Tejada [facility] Pat. Stat.:Inpatient Room: [...] Mass 2D Value 223 g LV Mass Ldbap4D Value 103 g/m2 RA Volume Atrial Schaffer [...] 11:02 PM Brit Gonzáles M.D. Zaria Mccarthy ACNP-BC ECHO Final R esult * CK (CPK) (08/31/2024 10:35 AM JEWELRY CASTING MODEL MAKER) CPK 154 39 - 308 U/L 08/31/2024 5:11 PM JEWELRY CASTING MODEL MAKER [facility] 08/31/2024 10:3 5 AM JEWELRY CASTING MODEL MAKER Ludy Romero MD LABORATORY Final Result Performing Organization Address City/[facility]/ZIP Co de Phone Number [facility] [address] [place] [address], [place] [phone] * LACTIC ACID W REFLEX (SEPSIS) (07/31/2024 3:36 PM JEWELRY CASTING MODEL MAKER) LACTIC ACID VENOUS 0.4 0.4 - 2.0 MMOL/L 07/31/2024 4:08 PM JEWELRY CASTING MODEL MAKER [facility] 07/31/2024 3:36 PM JEWELRY CASTING MODEL MAKER Jena Schilling MD LABORATORY Final Resul t [facility] [address] [place] [address], [place] [phone] * CT ABD+PEL WO CON (11/17/2023 3:08 [...] VE NON-REACT ALEK 12/25/2022 6:28 PM CDT [facility] Comment: ANTIBODIES TO HCV NOT DETECTED. DOES NOT EXCLUDE THE POSSIBILITY OF EXPOSURE TO HCV. 12/24/2022 3:05 PM CDT Katina Beltran MD LABORATORY Final Resu lt Performing Organization Address City/[facility]/ZIP Co de Phone Number [facility] [address] [place] [address], [phone] * LIPID PANEL (02/01/2022 11:27 AM CDT) CHOLESTEROL 151 MG/DL 02/01/2022 12:29 PM CDT [facility] Comment:DESIRABLE: <200 TRIGLYCERIDES 119 MG/DL 02/01/2022 12:29 PM CDT [facility] Comment:<150 NORMAL HDL 73 >39 MG/DL 02/01/2022 12:29 PM CDT [facility] LDL (CALCULATED) 54 MG/DL 02/02/20 22 12:29 PM CDT [facility] Comment:<100 OPTIMAL VLDL CALCULATION 24 MG/DL 02/02/20 22 12:29 PM CDT [facility] Comment:REFERENCE RANGE NOT ESTABLISHED CHOL/HDL RATIO 2.1 02/01/2022 12:29 PM CDT [facility] Comment:REFERENCE RANGE NOT ESTABLISHED LDL/HDL 0.7 02/01/2022 12:29 PM CDT [facility] Comment:REFERENCE RANGE NOT ESTABLISHED NON HDL CHOLESTEROL 78 MG/DL 02/01/2022 12:29 PM CDT [facility] Comment:REFERENCE RANGE NOT ESTABLISHED 02/01/2022 11:2 7 AM CDT Segundo Montana MD LABORATORY Final Result Performing Organization Address [facility]/ZIP Co de Phone Number [facility] [address] [place], [place] [address] [phone] * Colonoscopy (01/27/2022 6:48 AM CDT) Kilo Navarro MD GI PROCEDURE ORDERABLES Final Result from Last 3 Months or Most Recently Relevant to Health Maintenance Insurance [facility] [employer] Advance Directives Documents on File Type Date Recorded Patient Softwood Faller Expl anation Advance Directives and Living Will 02/22/2020 1:54 PM 04/11/2012 POLST Advance Directives and Living Will 11/06/2017 POWER OF TRIAL CONSULTANT FO R HEALTH CARE Advance Directives and Living Will 01/04/2017 POWER OF TRIAL CONSULTANT FO R HEALTH CARE Advance Directives and Living Will 01/04/2017 SHORT FORM POWER OF TRIAL CONSULTANT Advance Directives and Living Will 05/13/2016 POWER OF TRIAL CONSULTANT FO R HEALTH CARE Advance Directives and Living Will 05/13/2016 SHORT FORM POWER OF TRIAL CONSULTANT Advance Directives and Living Will 04/06/2016 POWER OF TRIAL CONSULTANT FO R HEALTH CARE Advance Directives and Living Will 03/23/2016 POWER OF TRIAL CONSULTANT FO R HEALTH CARE Advance Directives and Living Will 01/27/2016 POWER OF TRIAL CONSULTANT FO R HEALTH CARE Advance Directives and Living Will 10/23/2015 POWER OF TRIAL CONSULTANT FO R HEALTH CARE Advance Directives and Living Will 10/21/2015 POWER OF TRIAL CONSULTANT FO R HEALTH CARE Advance Directives and Living Will 10/21/2015 POWER OF TRIAL CONSULTANT FO R HEALTH CARE Advance Directives and Living Will 10/21/2015 POWER OF TRIAL CONSULTANT FO R HEALTH CARE Advance Directives and Living Will 10/01/2015 POWER OF TRIAL CONSULTANT FO R HEALTH CARE Advance Directives and Living Will 08/08/2015 POWER OF TRIAL CONSULTANT FO R HEALTH CARE Advance Directives and Living Will 06/25/2014 POWER OF TRIAL CONSULTANT FO R HEALTH CARE Advance Directives and Living Will 05/23/2014 POWER OF TRIAL CONSULTANT FO R HEALTH CARE * DNR (Latest Code Status on File) Date Activated Date Inactivated Comments 08/31/2024 12:01 PM 09/21/2024 12:48 PM * Full Code Date Activated Date Inactivated Comments 07/31/2024 5:48 PM 08/03/2024 3:13 PM * Full Code Date Activated Date Inactivated Comments 07/12/2023 7:39 PM 07/16/2023 1:32 PM * Full Code Date Activated Date Inactivated Comments 02/16/2023 4:32 AM 02/18/2023 3:27 PM * Full Code Date Activated Date Inactivated Comments 02/06/2023 4:57 AM 02/09/2023 3:44 PM Care Teams Rn Resource Nurse Relationship Specialty Start Date End Date Megan Infante MD [address] [place] [address] PCP - General FAMILY PRACTICE 04/06/16 Zaki Ortiz MD [address] [place] [address] Consulting Physician PULMONARY DISEASE 07/12/19 Concetta Acevedo MD [address] [place] [address] Surgeon NEUROLOGICAL SURGERY 12/16/22 Jeff Grace MD [address] [place] [address] Consulting Physician INTERNAL MEDICINE 02/11/23 Brit Gonzáles MD [address] [place], [place] [phone] Consulting Physician CARDIOVASCULAR DISEASE 12/29/23
--- OUTSIDE RECORDS SUMMARY | 2024-09-21 12:50 | XMS_ITS | Encounter Summary ---
Author Organization [facility] Address [facility] [place] [address] [place] [address] Care Team Providers Care Sheet Rock Finisher Name Role Phone Piyush Pandey MD Unavailable Unavailabl e Megan Infante MD Primary Care Provider [phone] Sharmila Davis APRN LIVE STUDY MANAGER-C Unavailable [phone] Linda Block MD Unavailable [phone] Jeff Grace MD Unavailable Zaki Ortiz MD Unavailable [phone] Concetta Acevedo MD Unavailable [phone] Jeff Grace MD Unavailable Brit Gonzáles MD Unavailable Encounter Details Date Type Department Care Team (Late st Contact Info) Description 01/28/2019 Abstract [facility]FL CONVERSION [address] [place] [address] , Generic Conversion, Social History Tobacco Use Types Packs/Day Years Used Date Smoking Tobacco: Former Smokeless Tobacco: Former Chew Alcohol Use Standard Drinks/Week Comments Yes 0 (1 standard drink = 0.6 oz pur e alcohol) 6 per week Sex and Gender Information Value Date Recorded Sex Assigned at Male 09/07/2024 10:18 PM CONSUMER ANALYST Legal Sex Male 10:01 PM CDT Gender Identity Male 09/07/2024 10:18 PM CONSUMER ANALYST Sexual Orientation Straight 09/07/2024 10 :18 PM CONSUMER ANALYST Occupation Industry Job Start Date Job End Date Not on file Not on file Not on file Not on file documented as of this encounter Plan of Treatment Upcoming Encounters Date Type Department Care Team (Late st Contact Info) Description 09/25/2024 2:00 PM CONSUMER ANALYST Appointment [facility] [address] [place] [address] Zayra Powell, ELECTRONIC ASSEMBLER GROUP LEADER [address] [place] [phone] 10/16/2024 3:30 PM CONSUMER ANALYST Office Visit [facility] [address] [place] [address] Brit Gonzáles MD [address] [place], [place] [phone] documented as of this encounter Visit Diagnoses Not on filedocumented in this encounter Additional Health Concerns Infection Onset Date Last Indicated Resolved Time COVID-19 Rule Out 03/02/2020 03/02/2020 03/03/2020 8:23 PM CDT COVID-19 Rule Out 07/03/2020 07/03/2020 07/04/2020 11:25 PM CONSUMER ANALYST COVID-19 Rule Out 09/07/2020 09/07/2020 09/08/2020 5:52 PM CONSUMER ANALYST COVID-19 Rule Out 10/05/2020 10/05/2020 10/06/2020 11:37 AM CONSUMER ANALYST COVID-19 Rule Out 02/08/2021 02/08/2021 02/08/2021 9:06 PM CDT COVID-19 Rule Out 01/24/2022 01/24/2022 01/24/2022 6:41 PM CDT COVID-19 Rule Out 01/04/2023 01/04/2023 01/04/2023 10:12 AM CDT documented as of this encounter Care Teams Sheet Rock Finisher Relationship Specialty Start Date End Date Megan Infante MD [address] [place] [address] PCP - General FAMILY PRACTICE 04/06/16 Piyush Pandey MD [place] Report Clerk CARDIOVASCULAR DISEASE 04/06/16 12/28/23 Sharmila Davis, DANNY, LIVE STUDY MANAGER-C [address] [phone] NURSE PRACTITIONER 01/04/17 04/03/24 Linda Block MD [address] [place] [phone] [place] Report Clerk CLINICAL CARDIAC ELECTROPHYSIOLOGY 02/08/17 04/12/23 Jeff Grace MD [address] [phone] Consulting Physician INTERNAL MEDICINE 02/20/19 3 Zaki Ortiz MD [address] [place] [phone] Consulting Physician PULMONARY DISEASE 07/12/19 Concetta Acevedo MD [address] [place] [phone] Surgeon NEUROLOGICAL SURGERY 12/16/22 Jeff Grace MD [address] [place], [place] [phone] Consulting Physician INTERNAL MEDICINE 02/11/23 Brit Gonzáles MD [address] [place] [address] Consulting Physician CARDIOVASCULAR DISEASE 12/29/23 documented as of this encounter
--- OUTSIDE RECORDS SUMMARY | 2024-09-21 12:50 | XMS_ITS | Encounter Summary ---
Author Organization [facility] Address [facility] [place] [address] [place] [address] Care Team Providers Care Auto Design Checker Name Role Phone Megan Infante MD Primary Care Provider [phone] Zaki Ortiz MD Unavailable [phone] Concetta Acevedo MD Unavailable + [phone] Jeff Grace MD Unavailable Brit Gonzáles MD Unavailable Reason for Referral * Medication Prior Authorization - Closed Specialty Diagnoses / Procedures Referred By Yung sequeira Referred To Contact Diagnoses Fall Arthritis Danika Salcedo MD [address] [place] [address] Phone: tel: fax: Referral ID Status Reason Start Date Expiration Date Visits Re quested Visits Authorized [id number] Closed 1 1 ROOM SUPERVISOR * (Routine) - Canceled Specialty Diagnoses / Procedures Referred By Yung sequeira Referred To Contact Procedures CYTOLOGY TEACHER eval and treat [facility] [address] [place] [address] Phone: tel: Referral ID Status Reason Start Date Expiration Date V isits Requested Visits Authorized [id number] Canceled 09/18/2024 09/18/2025 1 1 ROOM SUPERVISOR * Procedure (Routine) - New Request Specialty Diagnoses / Procedures Referred By Contac t Referred To Contact Procedures Home O2 eval Kelly Wilson MD [address] [place] [address] Phone: tel: fax: Referral ID Status Reason Start Date Expiration Date V isits Requested Visits Authorized [id number] New Request 09/15/2024 09/15/2025 1 1 ROOM SUPERVISOR * Procedure (Routine) - New Request Specialty Diagnoses / Procedures Referred By Contac t Referred To Contact Procedures Bedside spirometry Lakhwinder Howard, MARINE MAMMAL TRAINER [address] [address] Phone: tel: fax: Referral ID Status Reason Start Date Expiration Date V isits Requested Visits Authorized [id number] New Request 09/14/2024 09/14/2025 1 1 ROOM SUPERVISOR * (Routine) - Canceled Specialty Diagnoses / Procedures Referred By Contac t Referred To Contact Procedures PT Eval and [facility] Unit [address] [place] [address] Phone: tel: Referral ID Status Reason Start Date Expiration Date V isits Requested Visits Authorized [id number] Canceled 09/08/2024 09/08/2025 1 1 ROOM SUPERVISOR * (Routine) - Canceled Specialty Diagnoses / Procedures Referred By Contac t Referred To Contact Procedures OT Eval and Treat [facility] Intensive Care Unit - [address] [place] [address] Phone: tel: Referral ID Status Reason Start Date Expiration Date V isits Requested Visits Authorized [id number] Canceled 09/07/2024 09/07/2025 1 1 ROOM SUPERVISOR * (Routine) - Canceled Specialty Diagnoses / Procedures Referred By Contac t Referred To Contact Procedures PT Eval and Treat [facility] Intensive Care Unit - 4B [address] [place] [address] Phone: tel: Referral ID Status Reason Start Date Expiration Date V isits Requested Visits Authorized [id number] Canceled 09/07/2024 09/07/2025 1 1 ROOM SUPERVISOR * (Routine) - Canceled Specialty Diagnoses / Procedures Referred By Contac t Referred To Contact Procedures CYTOLOGY TEACHER eval and [facility] Intensive [facility] - [address] [place] [address] Phone: tel: Referral ID Status Reason Start Date Expiration Date V isits Requested Visits Authorized [id number] Canceled 09/06/2024 09/06/2025 1 1 ROOM SUPERVISOR * Imaging (Urgent) - New Request Specialty Diagnoses / Procedures Referred By Contac t Referred To Contact RADIOLOGY Procedures [facility] VAST TEAM PICC INSERT >5YR Keyona Miller MD [address] [place] [address] Phone: tel: fax: Referral ID Status Reason Start Date Expiration Date V isits Requested Visits Authorized [id number] New Request 09/04/2024 09/04/2025 1 1 ROOM SUPERVISOR * Imaging (Urgent) - New Request Specialty Diagnoses / Procedures Referred By Contac t Referred To Contact RADIOLOGY Procedures USV MARIA ALEJANDRA DUPLEX LOW EXT ELZA Juan Francisco Rubi MD 1 [place] [address] Phone: tel: fax: Referral ID Status Reason Start Date Expiration Date V isits Requested Visits Authorized [id number] New Request 09/03/2024 09/03/2025 1 1 ROOM SUPERVISOR * (Routine) - New Request Specialty Diagnoses / Procedures Referred By Contac t Referred To Contact Procedures INTUBATION Juan Francisco Rubi MD [address] [place] [address] Phone: tel: fax: Referral ID Status Reason Start Date Expiration Date V isits Requested Visits Authorized [id number] New Request 09/03/2024 09/03/2025 1 1 ROOM SUPERVISOR * (Routine) - New Request Specialty Diagnoses / Procedures Referred By Contac t Referred To Contact Procedures OT eval and treat Juan Francisco Rubi MD [address] [place] [address] Phone: tel: fax: Referral ID Status Reason Start Date Expiration Date V isits Requested Visits Authorized [id number] New Request 09/03/2024 09/03/2025 1 1 ROOM SUPERVISOR * (Routine) - New Request Specialty Diagnoses / Procedures Referred By Contac t Referred To Contact Procedures PT eval and treat Juan Francisco Rubi MD [address] [place] [address] Phone: tel: fax: Referral ID Status Reason Start Date Expiration Date V isits Requested Visits Authorized [id number] New Request 09/03/2024 09/03/2025 1 1 ROOM SUPERVISOR * (Routine) - New Request Specialty Diagnoses / Procedures Referred By Contac t Referred To Contact Procedures CYTOLOGY TEACHER videofluoroscopic swallow study Lakhwinder Byers, CYTOLOGY TEACHER [address] [place] [address] Phone: tel: fax: Referral ID Status Reason Start Date Expiration Date V isits Requested Visits Authorized [id number] New Request 08/31/2024 08/31/2025 1 1 ROOM SUPERVISOR * Imaging (Urgent) - New Request Specialty Diagnoses / Procedures Referred By Contac t Referred To Contact RADIOLOGY Procedures [facility] Ludy Morrell MD [address] [place] [address] Phone: tel: fax: Referral ID Status Reason Start Date Expiration Date V isits Requested Visits Authorized [id number] New Request 08/31/2024 08/31/2025 1 1 ROOM SUPERVISOR * Imaging (Urgent) - Pending Review Specialty Diagnoses / Procedures Referred By Contac t Referred To Contact RADIOLOGY Procedures USE ECHOCARDIOGRAM W CON USE ECHOCARDIOGRAM Zaria Thacker ACNP-MIAN [address] [place] [address] Phone: tel: fax: Referral ID Status Reason Start Date Expiration Date V isits Requested Visits Authorized [id number] Pending Review 08/31/2024 08/31/2025 1 1 ROOM SUPERVISOR * (Routine) - New Request Specialty Diagnoses / Procedures Referred By Contac t Referred To Contact Procedures OT eval and treat Zaria Thacker ACNP-MIAN [address] [place] [address] Phone: tel: fax: Referral ID Status Reason Start Date Expiration Date V isits Requested Visits Authorized [id number] New Request 08/31/2024 08/31/2025 1 1 ROOM SUPERVISOR * (Routine) - New Request Specialty Diagnoses / Procedures Referred By Contac t Referred To Contact Procedures PT eval and treat Zaria Thacker [facility] [address] [place] [address] Phone: tel: fax: Referral ID Status Reason Start Date Expiration Date V isits Requested Visits Authorized [id number] New Request 08/31/2024 08/31/2025 1 1 ROOM SUPERVISOR * (Routine) - New Request Specialty Diagnoses / Procedures Referred By Contac t Referred To Contact Procedures CYTOLOGY TEACHER eval and treat [facility] [address] [place] [address] Phone: tel: Referral ID Status Reason Start Date Expiration Date V isits Requested Visits Authorized [id number] New Request 08/31/2024 08/31/2025 1 1 ROOM SUPERVISOR * (Routine) - New Request Specialty Diagnoses / Procedures Referred By Contac t Referred To Contact Diagnoses Chronic venous insufficiency Procedures Wound ostomy eval and treat [facility] [address] [place] [address] Phone: tel: Referral ID Status Reason Start Date Expiration Date V isits Requested Visits Authorized [id number] New Request 08/31/2024 08/31/2025 1 1 ROOM SUPERVISOR Reason for Visit * Auth/Cert Specialty Diagnoses / Procedures Referred By Contac t Referred To Contact Diagnoses CHF exacerbation ([facility]) CHF exacerbation Procedures NONE Chidi Umanzor MD [address] [place] [address] Phone: tel: fax: Referral ID Status Reason Start Date Expiration Date Visits Re quested Visits Authorized [id number] 1 1 Encounter Details Date Type Department Care Team (Late st Contact Info) Description 08/31/2024 8:49 AM WAX ROOM SUPERVISOR - 09/21/2024 10:43 AM [facility] Hospital Encounter [facility] [address] [place] [address] Chidi Umanzor MD [address] [place] [address] 166- Jean Lindsay MD [address] [place], [place] [id number] 999- Juan Francisco Rubi MD 1 [place], [place] [id number] 145- Keyona Miller MD 1 [place], [place] [id number] 328- Junapablo Herman MD 1 [place], [place] [id number] 209- Kelly Wilson MD 1 [place], [place] [id number] 270- Danika Salcedo MD [address] [place], [place] [id number] 633- Discharge Disposition: Custodial Facility Social History Tobacco Use Types Packs/Day Years Used Date Smoking Tobacco: Former Passive Smoke Exposure: Past Smokeless Tobacco: Former Chew Alcohol Use Standard Drinks/Week Comments Yes 0 (1 standard drink = 0.6 oz pur e alcohol) 4 beers per week [facility] Utilities Answer Date Recorded In the past 12 months has e [employer], gas, oil, or water company threatened to [...] How often do you attend rastafari or christianity serv ices? Patient declined 02/16/2023 [...] a long-term (including now)? Patient declined 07/12/2023 Housing Stability [...] any time in the past 12 m [facility], were you homeless or living in a long-term (including now)? No 08/31/2024 Sex and Gender Information Value Date Recorded Sex Assigned at Male 09/07/2024 10:18 PM WAX ROOM SUPERVISOR Legal Sex Male 10:01 PM CDT Gender Identity Male 09/07/2024 10:18 PM WAX ROOM SUPERVISOR Sexual Orientation Straight 09/07/2024 10 :18 PM WAX ROOM SUPERVISOR Occupation Industry Job Start Date Job End Date Not on file Not on file Not on file Not on file documented as of this encounter Last Filed Vital Signs Vital Sign Reading Time Taken Comments Blood Pressure 110/61 09/21/2024 7:39 AM WAX ROOM SUPERVISOR Pulse 78 09/21/2024 7:39 AM WAX ROOM SUPERVISOR Temperature 36.4 ??C (97.5 ??F) 09/21/2024 7:39 AM CS T Respiratory Rate 17 09/21/2024 7:39 AM WAX ROOM SUPERVISOR Oxygen Saturation 99% 09/21/2024 7:39 AM WAX ROOM SUPERVISOR Inhaled Oxygen Concentration - - Weight 101.5 kg (223 lb 12.3 oz) 09/21/2024 5:00 AM WAX ROOM SUPERVISOR Height 167.6 cm (5' 6 ) 08/31/2024 9:47 AM WAX ROOM SUPERVISOR Body Mass Index 36.12 08/31/2024 9:47 AM WAX ROOM SUPERVISOR documented in this encounter Functional Status * Question Answer Date of Assessment Author Status Do you have serious difficulty walking or climbing stairs? Yes 08/31/2024 10:00 AM Yarelis Ingram RN Act nhan * Question Answer Date of Assessment Author Status Do you have difficulty dressing or bathing? No 08/31/2024 10:00 AM Yarelis Ingram RN Active Because of a physical, mental, or emotional condition, do you have difficulty doing errands alone such as visiting a doctor's office or shopping? No 08/31/2024 10:00 AM Yarelis Ingram RN Acti ve * Are you deaf or do you [...] difficulty concentrating, remembering, or making decisions? No 08/31/2024 10:00 AM Yarelis Ingram RN Active * Because of a physical, mental, or emotional condition, do you have serious difficulty concentrating, remembering, or making decisions? Answer Entry Date Author Status No 08/31/2024 10:00 AM Yarelis Ingram RN Active documented in this encounter Discharge Instructions * Attachments The following attachments cannot be sent through Care Everywhere. * Heart Failure Discharge Instructions, Adult (Bangladeshi) * Bumetanide, ADULT (Bangladeshi) * Insulin Glargine, ADULT (Bangladeshi) * Insulin Lispro, ADULT ([place]angladeshi) * Metoprolol, ADULT (Bangladeshi) documented in this encounter Medications at Time of Discharge albuterol sulfate HFA 108 (90 Base) MCG/ACT inhaler Inhale 2 puffs into the lungs every 4 (four) hours as needed. 11/14/2015 allopurinol 300 MG tablet Take 1 tablet (300 mg total) by mouth daily. 02/17/2019 aspirin 81 MG chewable tablet Chew 1 tablet (81 mg total) by mouth daily for 30 days. 30 tablet 09/22/2024 5 atorvastatin 80 MG tablet Take 1 tablet (80 mg total) by mouth nightly at bedtime. 12/31/2016 bumetanide (BUMEX) 2 MG tablet Take 1 tablet (2 mg total) by mouth daily for 30 days. 30 tablet 09/22/2024 5 clotrimazole-bet amethasone (LOTRISONE) cream 1 Application every 12 (twelve) hours. 07/06/2024 docusate sodium 100 MG capsule Take 1 capsule (100 mg total) by mouth as needed for Constipation. folic acid (FOLVITE) 1 MG tablet Take 1 tablet (1 mg total) by mouth daily. HYDROcodone-acet aminophen (NORCO) 7.5-325 MG tabletIndication s:Acute Pain < 3 Day Supply Take 1 tablet by mouth every 8 (eight) hours as needed for Pain. Indications: Acute Pain < 3 Day Supply 6 tablet 09/21/2024 5 hydrOXYzine (ATARAX) 50 MG tablet Take 1 tablet (50 mg total) by mouth 3 (three) times daily. As needed 10/09/2022 insulin glargine (LANTUS) 100 UNIT/ML injection (VIAL) Inject 18 Units into the skin nightly at bedtime for 30 days. 5.4 mL 09/21/2024 5 insulin lispro (HUMALOG/ADMELOG ) 100 UNIT/ML injection (VIAL) Inject 0-3 Units into the skin 3 (three) times daily before meals. 2.7 mL 09/21/2024 5 insulin lispro (HUMALOG/ADMELOG ) 100 UNIT/ML injection (VIAL) Inject 6 Units into the skin 3 (three) times daily before meals. 5.4 mL 09/21/2024 5 JARDIANCE 25 MG tablet Take 1 tablet (25 mg total) by mouth daily. 10/31/2022 metoprolol succinate ER (TOPROL-XL) 25 MG 24 hr tablet Take 1 tablet (25 mg total) by mouth daily for 30 days. 30 tablet 09/22/2024 5 nystatin (MYCOSTATIN) powder Apply topically 2 (two) times daily. Apply to groin, under abdominal fold 15 g 08/03/2024 pantoprazole EC 40 MG tablet Take 1 tablet (40 mg total) by mouth daily. pregabalin (LYRICA) 150 MG capsule Take 1 capsule (150 mg total) by mouth 2 (two) times daily. Semaglutide (OZEMPIC, 1 MG/DOSE, SC) Inject into the skin once a week. sertraline 50 MG tablet Take 1 tablet (50 mg total) by mouth daily. 10/03/2021 traZODone (DESYREL) 150 MG tablet Take 2 tablets (300 mg total) by mouth nightly at bedtime. 03/24/2022 TRELEGY ELLIPTA 100-62.5-25 MCG/ACT AEROSOL POWDER, BREATH ACTIVATED Inhale 1 puff into the lungs daily. 12/23/2022 warfarin (COUMADIN) 7.5 MG tablet Take 1 tablet (7.5 mg total) by mouth daily for 2 days. 2 tablet 09/21/2024 documented as of this encounter Progress Notes * Lulu Rizzo RN - 09/21/2024 9:44 AM CST 09/21/24 [id number] Interdisciplinary Group Conference Team Members Present Physician;Case/Care management;Nursing Physician present for group conference Dr. Salcedo Patient Current Status Paient current status Inpatient Barriers to Discharge Inpatient Review Barriers to Discharge Inpatient No Barrier- Medical Milestone in Process No Barrier- Medical Milestone in Process follow up Cardiology adjust medication. Patient to follow up outpatient. Medically ready to discharge to swing bed unit. Patient expects to be discharged to Patient expects to be discharged to: [facility] bed ([facility] Van Transport crab picker today at 1030 Nurse to Nurse call [phone] Fax discharge orders to [phone] YUNI Buck updated. Jes at [facility] updated. Lulu Rizzo RN CM 5 Cardiac Reporting Developer ext. [phone] ROOM SUPERVISOR ROOM SUPERVISOR ROOM SUPERVISOR * Aaliyah BartonD, [facility] - 09/21/2024 8:49 AM CST Warfarin - Pharmacy Dosing Service Note Obie Sims is a 69-year-old male for which pharmacy has been consulted to dose warfarin for A.fib. Goal INR is 2-3. Warfarin Order Set Activated: Yes Warfarin Start Date: continuation from home Past Medical History: Diagnosis Date Abnormal ankle brachial index ([facility]) Acute on chronic heart failure, unspecified heart failure type ([facility]) Anxiety Aortic valve stenosis Arthritis Asthma, mild persistent ([facility]) 04/06/2021 Atrial fibrillation ([facility]) s/p PVI/[facility] 10/2015 Bilateral leg pain Carotid disease, bilateral ([facility]) CHF (congestive heart failure) ([facility]) Claudication ([facility]) COPD (chronic obstructive pulmonary disease) ([facility]) Coronary artery disease Diabetes mellitus, type II ([facility]) Edema 04/19/2018 2+ pitting History of blood transfusion Hyperlipidemia Hypertension LV dysfunction Non-pressure chronic ulcer of left calf limited to breakdown of skin ([facility]) 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 breakdown of skin ([facility]) Osteoarthritis PAD (peripheral artery disease) ([facility]) Pneumonia Restless leg syndrome S/P aortic valve replacement with bioprosthetic valve 2013 SOB (shortness of breath) Stroke ([facility]) Varicose veins of bilateral lower extremities with other complications Weight gain with edema Home warfarin dose: warfarin 2 mg po daily per med rec Bridging agent: none Vitamin K use: No; (if yes, indicate date, dose, and route) Diet: PO Recent Labs Lab 09/15/24 0504 09/18/24 0329 HGB 11.2* -- HCT 37.1 -- PLT 133* -- ALB -- 2.7* Date INR Dose Received 08/28 5.4 per [facility] paperwork - 08/29 - - 08/30 2.7 2 mg at [facility] 08/31 1.8 - 09/01 1.6 2 mg 09/02 1.9 2 mg 09/03 2.6 hold 09/04 3.7 hold 09/05 2.2 2 mg 09/06 1.7 Missed dose as was npo 09/07 1.4 2 mg 09/08 1.8 1 mg 09/09 1.5 2 mg 09/10 1.3 2 mg 09/11 1.3 2 mg 09/12 1.4 2.5 mg 09/13 1.2 4 mg 09/14 1.3 4 mg 09/15 1.4 6 mg 09/16 1.4 6 mg 09/17 1.5 6 mg 09/18 1.6 7.5 mg 09/19 1.5 7.5 mg 09/20 1.6 7.5 mg 09/21 1.8 Drug interactions: Potential to increase INR: Potential to decrease INR: - Potential to increase the risk of bleeding: aspirin, sertraline Warfarin Sensitivity: high, based on the following risk factors: albumin < or = to 2.5, concomitant antiplatelet therapy, thrombocytopenia, age 66-79, 1 moderate drug interaction, and diagnosis ofheart failure. Hgb/Hct today are stable INR today subtherapeutic INR increasing, continue current dose The plan is to give 7.5 mg tonight. Will recheck an INR in the morning to assist with subsequent dosing. Pharmacy will continue to monitor labs and notes daily, adjusting the dose as clinically appropriate. Thank you for the consult. Pharmacy to dose per Dr. Neftali Presley, AaliyahD, [facility] Phone number: [phone] 09/21/2024 8:49 AM ROOM SUPERVISOR * Cielo Ness RN - 09/21/2024 8:15 AM CSTSummary: Pt doing well today. Awake and alert. Eating well. VSS. Voiding per urinal. [facility]. Problem: Reduced risk for falls/injury Goal: Reduced Risk for Falls/Injury Outcome: Progressing Goal: Reduced Risk of Confusion (Acute vs Chronic) Outcome: Progressing Goal: Reduced Risk of Symptomatic Depression Outcome: Progressing Goal: Reduced Risk of Altered Elimination Outcome: Progressing Goal: Reduced Risk of Dizziness/Vertigo/Balance Outcome: Progressing Goal: Reduced Risk of Polypharmacy Outcome: Progressing Problem: Pain control/comfort Goal: Promote [...] perform prescribed physical activity Outcome: Progressing Problem: Anxiety Goal: Alleviation of anxiety Outcome: Progressing Problem: Pain - Acute Goal: Achieve acceptable pain level Outcome: Progressing Problem: Tissue Perfusion - Cardiopulmonary, Altered Goal: Absence of chest pain Outcome: Progressing ROOM SUPERVISOR * Lucille Alexandra, PT - 09/21/2024 7:20 AM CSTSummary: P/T POC update The below POC to be followed until 10/05/24 at that time POC will be re-assessed to ensure patient is making appropriate progression. Pt. will be able to perform supine to/from sitting at EOB with Independent to improve mobility. 2. Pt. will be able to perform sit to/from standing with modified independence using wheeled walkerto improve independence. 3. Pt. will be able to ambulate 100 feet with modified independence using wheeled walker to help improve strength and functional independence. 4. Pt. will be able to maintain static sitting balance for 5-10 minutes with Independent to improveindependence. 5. Pt. will be able to maintain dynamic sitting balance on soft surface with Independent to improvefunctional mobility. 6. Pt. will be able to maintain static standing balance 5-10 minutes with modified independence using wheeled walker to improve independence. 7. Pt. will be able to maintain dynamic standing balance during side-stepping L/R and marching withmodified independence using wheeled walker to improve functional mobility. 8. Pt. will be able to ascend/descend 3 steps with modified independence using handrail(s) to increase strength and to safely access home at D/C. ROOM SUPERVISOR * Nikhil Haney RN - 09/21/2024 5:48 AM CST Problem: Pain control/comfort Goal: Promote pain control/comfort Outcome: Met This Shift Problem: Skin integrity, Impaired-wound Goal: Absence of new skin breakdown Outcome: Met This Shift Goal: Evidence of wound healing Outcome: Met This Shift Problem: Skin integrity, at risk Goal: Absence of new skin breakdown Outcome: Progressing Problem: Moisture associated skin impairment Goal: Reduce moisture exposure Outcome: Progressing Goal: Evidence of wound healing Outcome: Progressing Goal: Evidence of pressure injury/ulcer healing Outcome: Progressing Goal: Absence of new skin breakdown Outcome: Progressing Problem: Reduced risk for falls/injury Goal: Reduced Risk for Falls/Injury Outcome: Progressing Goal: Reduced Risk of Confusion (Acute vs Chronic) Outcome: Progressing Goal: Reduced Risk of Symptomatic Depression Outcome: Progressing Goal: Reduced Risk of Altered Elimination Outcome: Progressing Goal: Reduced Risk of Dizziness/Vertigo/Balance Outcome: Progressing Goal: Reduced Risk of Polypharmacy Outcome: Progressing Problem: Activity Intolerance Goal: Improved activity tolerance Outcome: Progressing Goal: Able to participate in acute rehabilitation Outcome: Progressing Goal: Able to perform prescribed physical activity Outcome: Progressing Problem: Anxiety Goal: Alleviation of anxiety Outcome: Met This Shift Problem: Pain - Acute Goal: Achieve acceptable pain level Outcome: Met This Shift Problem: Tissue Perfusion - Cardiopulmonary, Altered Goal: Absence of chest pain Outcome: Progressing ROOM SUPERVISOR * Nikolas Jiménez MD - 09/21/2024 5:28 AM CST [employer] NOCTURNAL HOSPITALIST CROSS COVERAGE NOTE: DATE OF SERVICE: 09/21/2024 The patient's nurse reports that the patient has had 16 beats of V.Tach. I ordered a BMP and a serum magnesium level. The patient's nurse will update cardiology service (/Eliecer) at around 6:01 am. ROOM SUPERVISOR * Danika Salcedo MD - 09/20/2024 5:33 PM CST Images from the original note were not included. [employer] Hospitalist Progress note Chief Complaint: Shortness of breath ASSESSMENT/PLAN: 69-year-old male with a past medical history of CKD stage III, atrial fibrillation on warfarin, heart failure with reduced ejection fraction, coronary artery disease, aortic stenosis status post bioprosthetic aortic valve replacement, pulmonary hypertension, COPD/asthma, obstructive sleep apnea, hyp erlipidemia, diabetes mellitus type 2, CVA, carotid disease, anxiety/depression, hypertension, PAD,and RLS. He was transferred to [facility] with BRITTANY and hyperkalemia. During this hospitalization patient developed worsening hypoxic respiratory failure requiring intubation, transferred to ICU. In ICU he was treated with IV Lasix drip and also treated for possible aspiration pneumonia. Now extubated, transferred out of ICU on 09/07/2023 Acute on chronic CHF with reduced ejection fraction Anasarca Valvular heart disease Acute hypoxic/hypercarbic respiratory failure Pulmonary hypertension Echocardiogram from February 2024 reveals an ejection fraction of 40 to 45% with bioprosthetic aortic valve, no central or periprosthetic aortic regurgitation, mild mitral regurgitation, and mild tricuspid regurgitation. Worsening hypoxic respiratory failure requiring ICU admission, intubation -Strict intake and output with daily weights. Monitor renal functions -Holding Entresto in light of BRITTANY. Continue local -[facility] nephrology consulted. Nephrology dosing diuretics as and when needed, currently on p.o. Bumex Cardiology following, appreciate recommendations- Continue BiPAP at night for hypercapnic respiratory failure. Patient will need Arranged at rehab Patient will need a BiPAP arrangement at facility, pulmonary saw. Appreciate assistance for discharge plan, recommend settings on BiPAP / upon discharge On 4 L nasal cannula oxygen this morning Creatinine improving monitor Monitor respiratory status closely Pneumonia-HCAP versus aspiration Completed antibiotic course. Treated with Zosyn Encourage incentive spirometry Supplemental oxygen as needed BRITTANY on CKD stage III improving Hyperkalemia, resolved Hypernatremia Sodium improving Monitor renal functions, nephrology following Renal functions improving Will discuss with nephrology, started diuretics as tolerated Ground-level fall Rib fractures Generalized weakness -CT of the chest shows acute fractures of the seventh and eighth right ribs. -PT/OT consulted and recommended SNF. -Pain control. -Incentive spirometer. Concern for pneumonia probably HCAP versus aspiration Completed antibiotic course hematuria -UA negative. -Likely due to traumatic Oneill insertion and/or trauma to Oneill in setting of supratherapeutic INR.Initial UA with no RBCs. Resolved, monitor Atrial fibrillation Supratherapeutic INR, resolved Nonsustained ventricular tachycardia -INR was 5.4 on presentation. -Continue beta-kim for rate control. -Pharmacy consulted for Coumadin dosing. Monitor INR, INR this morning 1.6 -Monitor telemetry. nonsustained ventricular tachycardia Continue small dose of beta-kim Continue current regimen, cardiology following. Appreciate cardiology Diabetes mellitus type 2 -Continue insulin regimen as per endocrinology, appreciate recommendations for discharge plan Monitor Accu-Cheks, diabetic diet Coronary artery disease Hypertension Hyperlipidemia -Heart catheterization from 2020 revealed a 60% proximal LAD stenosis, 50% ostial RCA stenosis, bioprosthetic aortic valve without aortic regurgitation, and severe pulmonary hypertension. Continue beta-kim and statin -Monitor telemetry. COPD/asthma overlap syndrome Hypercarbic respiratory failure-rate COPD exacerbation Continue bronchodilators. prednisone 40 mg daily-total 5 days Completed antibiotic therapy CVA Carotid disease PAD -Continue aspirin and statin. DVT prophylaxis On Coumadin Body mass index is 36.37 kg/m??. Discussed with RN on the plan PT/OT recommending SNF, discussed with case management assistant on discharge plan, pending insurance authorization approval for discharge, accepted later this evening, will take patient tomorrow with BiPAP settings 07/28 Disussed with patient/staff about current medical condition and management Code status: DNR SUBJECTIVE: Patient seen and examined Labs reviewed Notes reviewed Patient using BiPAP in the night Breathing okay, denies any chest pain this morning Generalized weakness present Tolerating p.o. diet No fever ROS: All other systems reviewed and negative except above Blood pressure (!) 142/71, pulse 69, temperature 97.5 ??F (36.4 ??C), resp. rate 18, height 1.676 m(5' 6 ), weight 102.2 kg (225 lb 5 oz), SpO2 100%. Physical Exam Constitutional: Appearance: He is well-developed. HENT: Head: Normocephalic. Eyes: Pupils: Pupils are equal, round, and reactive to light. Cardiovascular: Rate and Rhythm: Normal rate. Heart sounds: Normal heart sounds. Pulmonary: Breath sounds: Normal breath sounds. Comments: Mild bibasilar crackles present Abdominal: General: Bowel sounds are normal. Palpations: Abdomen is soft. Tenderness: There is no abdominal tenderness. Musculoskeletal: Cervical back: Normal range of motion. Comments: Moves all extremities Skin: General: Skin is warm and dry. Neurological: Mental Status: He is alert and oriented to person, place, and time. Cranial Nerves: No cranial nerve deficit. Psychiatric: Mood and Affect: Mood normal. LABS:. No results for input(s): WBC , HGB , HCT , MCV , PLT , RBC in the last 72 hours. Recent Labs Lab 09/14/24 0348 09/15/24 0504 09/18/2432809/20/24 0356 NA 137 139 137 135* K 4.1 4.0 4.3 4.2 CL 101 104 101 99 CO2 31.4 32.9* 33.4* 33.1* AGAP 4.6 2.1 2.6 2.9 BUN 46* 44* 32* 34* CR 1.39* 1.24 1.23 1.26 GLU 228* 55* 91 105 CA 8.6 8.5 8.8 9.0 TP 6.9 -- -- -- ALB 2.5* -- 2.7* -- TBIL 0.7 -- -- -- ALKP 114 -- -- -- AST 18 -- -- -- ALT 31 -- -- -- Recent Labs Lab 09/18/2432809/19/2434109/20/24 0356 INR 1.6* 1.5* 1.6* Intake/Output Summary (Last 24 hours) at 09/20/2024 1733 Last data filed at 09/20/2024 0950 Gross per 24 hour Intake 610 ml Output 450 ml Net 160 ml RADIOLOGY : REVIEWED MEDICATIONS Scheduled medications acetylcysteine 10 % 200 mg Nebulization 2 times daily allopurinol 200 mg Oral Daily aspirin 81 mg Oral Daily atorvastatin 80 mg Oral Nightly at bedtime bumetanide 2 mg Oral Daily clotrimazole-betamethasone Topical Q12H folic acid 1 mg Oral Daily insulin glargine 18 Units Subcutaneous Nightly at bedtime insulin lispro 0-3 Units Subcutaneous TID AC insulin lispro 6 Units Subcutaneous TID AC ipratropium-albuterol 3 mL Nebulization Q4H metoprolol succinate ER 12.5 mg Oral Daily nystatin 5 mL Oral 4x Daily nystatin Topical BID pregabalin 150 mg Oral BID senna-docusate 1 tablet Oral BID sertraline 50 mg Oral Daily traZODone 300 mg Oral Nightly at bedtime warfarin (COUMADIN) pharmacy to dose Oral See Admin Instructions Infusion PRN acetaminophen, albuterol, glucose, dextrose 10 % bolus, [DISCONTINUED] fentaNYL AND [DISCONTINUED] fentaNYL AND fentaNYL, glucagon, HYDROcodone- acetaminophen, HYDROmorphone, hydrOXYzine, naLOXone, ondansetron, polyethylene glycol DANIKA SALCEDO MD 5:33 PM 09/20/2024 ROOM SUPERVISOR * Sandra Hollingsworth MD - 09/20/2024 12:01 PM CST Progress Note Patient Name: Obie Sims Date of : 1955 Admission Date: 08/31/2024 Reason for Follow up: DM type 2 Subjective: Resting in the recliner comfortably denies any complaints Patient had hypoglycemia in the morning, however endocrine service was not informed. Waiting for placement Medications: Current Facility-Administered Medications Medication Dose Route Frequency Provider Last Rate Last Admin acetaminophen (TYLENOL) tablet 650 mg 650 mg Oral Q4H PRN Keyona Miller MD acetylcysteine 10 % (MUCOMYST) inhalation solution 200 mg 200 mg Nebulization 2 times daily Danika Salcedo MD 200 mg at 09/20/24 0953 albuterol (PROVENTIL) (2.5 MG/3ML) 0.083% nebulizer solution 2.5 mg 2.5 mg Nebulization Q2H PRN Keyona Miller MD 2.5 mg at 09/04/24 0724 allopurinol (ZYLOPRIM) tablet 200 mg 200 mg Oral Daily Keyona Miller MD 200 mg at 09/20/24 0943 aspirin chewable tablet 81 mg 81 mg Oral Daily Keyona Miller MD 81 mg at 09/20/24 0943 atorvastatin (LIPITOR) tablet 80 mg 80 mg Oral Nightly at bedtime Keyona Miller MD 80mg at 09/19/24 2108 bumetanide (BUMEX) tablet 2 mg 2 mg Oral Daily Juanpablo Herman MD 2 mg at 09/20/24 0943 clotrimazole-betamethasone (LOTRISONE) cream Topical Q12H Nikolas Jiménez MD Given at 09/20/24 0954 dextrose (GLUTOSE) 40 % oral gel 37.5-75 g 15-30 g of dextrose Oral PRN Keyona Miller MD dextrose 10 % bolus infusion 125-250 mL 125-250 mL Intravenous PRN Keyona Miller MD Stopped at 09/06/24 1640 fentaNYL (SUBLIMAZE) injection 25 mcg 25 mcg Intravenous Q10 Min PRN Keyona Miller MD folic acid (FOLVITE) tablet 1 mg 1 mg Oral Daily Keyona Miller MD 1 mg at 09/20/24 0943 glipiZIDE (GLUCOTROL) tablet 10 mg 10 mg Oral QAM AC Isma Barrios MD 10 mg at 09/20/24 0701 glucagon injection 1 mg 1 mg Intramuscular Once PRN Keyona Miller MD HYDROcodone-acetaminophen (NORCO) 5-325 MG tablet 1 tablet 1 tablet Oral Q4H PRN Keyona Miller MD 1 tablet at 09/19/24 2107 HYDROmorphone (DILAUDID) injection 0.2 mg 0.2 mg Intravenous Q2H PRN Nikolas Jmiénez MD 0.2 mg at 09/19/24 2201 hydrOXYzine (ATARAX) tablet 50 mg 50 mg Per NG Tube TID PRN Keyona Miller MD insulin glargine (LANTUS) injection 18 Units 18 Units Subcutaneous Nightly at bedtime Sandra Hollingsworth MD 18 Units at 09/19/24 2109 insulin lispro (HUMALOG/ADMELOG) injection 0-3 Units 0-3 Units Subcutaneous TID COLE Barrios MD 2 Units at 09/17/24 1645 insulin lispro (HUMALOG/ADMELOG) injection 6 Units 6 Units Subcutaneous TID COLE Barrios MD 6Units at 09/20/24 0701 ipratropium-albuterol (DUONEB) 0.5-2.5 (3) MG/3ML nebulizer solution 3 mL 3 mL Nebulization Q4H Danika Salcedo MD 3 mL at 09/20/24 0947 metoprolol succinate ER (TOPROL-XL) 24 hr tablet 12.5 mg 12.5 mg Oral Daily Juanpablo Herman MD 12.5 mg at 09/20/24 0942 naLOXone (NARCAN) injection 0.4 mg 0.4 mg Intravenous PRN Nikolas Jiménez MD nystatin (MYCOSTATIN) 825379 UNIT/ML suspension 5 mL 5 mL Oral 4x Daily Nikolas Jiménez MD 5 mL at 09/20/24 0943 nystatin (MYCOSTATIN) powder Topical BID Nikolas Jiménez MD Given at 09/20/24 0954 ondansetron (ZOFRAN) injection 4 mg 4 mg Intravenous Q8H PRN Nikolas Jiménez MD polyethylene glycol (GLYCOLAX) packet 17 g 17 g Oral Daily PRN Keyona Miller MD pregabalin (LYRICA) capsule 150 mg 150 mg Oral BID Keyona Miller MD 150 mg at 09/20/24 0942 senna-docusate (SENOKOT-S) 8.6-50 MG tablet 1 tablet 1 tablet Oral BID Keyona Miller MD 1 tablet at 09/20/24 0942 sertraline (ZOLOFT) tablet 50 mg 50 mg Oral Daily Keyona Miller MD 50 mg at 09/20/24 0943 traZODone (DESYREL) tablet 300 mg 300 mg Oral Nightly at bedtime Juanpablo Heramn MD 300 mg at 09/19/24 2108 warfarin (COUMADIN) pharmacy to dose placeholder Oral See Admin Instructions Nikolas Jiménez MD warfarin (COUMADIN) tablet 7.5 mg 7.5 mg Oral Once Danika Salcedo MD Objective: PHYSICAL EXAMINATION: GENERAL: well-developed, well-nourished .No apparent distress. Alert and oriented x3. VITAL SIGNS: As above Current Vitals: Weight: Last Recorded Weight 09/20/24 0500 Weight: 102.2 kg (225 lb 5 oz) Vitals: 09/20/24 1124 BP: 111/57 Pulse: (!) 56 Resp: Temp: 97.3 ??F (36.3 ??C) SpO2: (!) 85% REVEIW OF SYSTEMS 12 point review of systems was obtained, it was negative except for symptoms mentioned above Labs: Recent Results (from the past 24 hours) POCT glucose Collection Time: 09/19/24 4:14 PM Result Value Ref Range GLUCOSE POC 117 (H) 70 - 109 POCT glucose Collection Time: 09/19/24 4:36 PM Result Value Ref Range GLUCOSE POC 88 70 - 109 POCT glucose Collection Time: 09/19/24 8:58 PM Result Value Ref Range GLUCOSE POC 87 70 - 109 PROTIME/INR, VENOUS (PROTHROMBIN TIME) Collection Time: 09/20/24 3:56 AM Result Value Ref Range PROTIME 18.6 (H) 9.4 - 12.5 SEC INR 1.6 (H) 0.8 - 1.1 BASIC METABOLIC PANEL Collection Time: 09/20/24 3:56 AM Result Value Ref Range SODIUM S/P/B 135 (L) 136 - 145 MMOL/L POTASSIUM S/P/B 4.2 3.5 - 5.1 MMOL/L CHLORIDE S/P/B 99 97 - 115 MMOL/L CO2 33.1 (H) 21.0 - 32.0 MMOL/L GLUCOSE 105 74 - 106 MG/DL BUN 34 (H) 7 - 18 MG/DL CREATININE S/P/B 1.26 0.70 - 1.30 MG/DL CALCIUM S/P/B 9.0 8.5 - 10.1 MG/DL ANION GAP 2.9 2.0 - 10.0 MMOL/L OSMOLALITY (CALC) 288 MOSM/KG GFR ESTIMATE 61 (L) >90 ML/MIN/1.73 M2 GFR NOTES GFR REFERENCES: POCT glucose Collection Time: 09/20/24 6:33 AM Result Value Ref Range GLUCOSE POC 86 70 - 109 POCT glucose Collection Time: 09/20/24 10:55 AM Result Value Ref Range GLUCOSE POC 63 (L) 70 - 109 POCT glucose Collection Time: 09/20/24 11:26 AM Result Value Ref Range GLUCOSE POC 36 (L) 70 - 109 POCT glucose Collection Time: 09/20/24 11:52 AM Result Value Ref Range GLUCOSE POC 79 70 - 109 Recent Labs Lab 09/19/24 1614 09/19/24 1636 09/19/24 2058 09/20/24 0633 09/20/24 1055 09/20/24 1126 09/20/24 1152 GLUCOSEPOC 117* 88 87 86 63* 36* 79 Assessment and Plan Type 2 diabetes Current use of insulin Obesity Home DM program: Glipizide 10 mg daily (unsure of dose); Jardiance 25 mg daily; Ozempic 1 mg daily A1c here 7% PCP: Dr. Megan Infante in [place] His glycemic profile was reviewed with the patient, overnight blood sugars are stable, patient had hypoglycemia after breakfast, will discontinue glipizide and he will continue prandial insulin. -- Lantus 18 units at night --D/c glipizide 10 mg every morning -- Humalog 6 units AC 3 times daily along with correctional insulin -- Accu-Chek before meals and at bedtime Call parameters in place Obesity; BMI 35. MNT Plan was discussed with patient and primary team Thank you SANDRA HOLLINGSWORTH MD 09/20/2024 ROOM SUPERVISOR * Radha Clayton, PharmD - 09/20/2024 9:58 AM CST Warfarin - Pharmacy Dosing Service Note Obie Sims is a 69-year-old male for which pharmacy has been consulted to dose warfarin for A.fib. Goal INR is 2-3. Warfarin Order Set Activated: Yes Warfarin Start Date: continuation from home Past Medical History: Diagnosis Date Abnormal ankle brachial index ([facility]) Acute on chronic heart failure, unspecified heart failure type ([facility]) Anxiety Aortic valve stenosis Arthritis Asthma, mild persistent ([facility]) 04/06/2021 Atrial fibrillation ([facility]) s/p PVI/[facility] 10/2015 Bilateral leg pain Carotid disease, bilateral ([facility]) CHF (congestive heart failure) ([facility]) Claudication ([facility]) COPD (chronic obstructive pulmonary disease) ([facility]) Coronary artery disease Diabetes mellitus, type II ([facility]) Edema 04/19/2018 2+ pitting History of blood transfusion Hyperlipidemia Hypertension LV dysfunction Non-pressure chronic ulcer of left calf limited to breakdown of skin ([facility]) 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) Osteoarthritis PAD (peripheral artery disease) (CMS/HCC) Pneumonia Restless leg syndrome S/P aortic valve replacement with bioprosthetic valve 2013 SOB (shortness of breath) Stroke ([facility]/HCC HHS/HCC) Varicose veins of bilateral lower extremities with other complications Weight gain with edema Home warfarin dose: warfarin 2 mg po daily per med rec Bridging agent: none Vitamin K use: No; (if yes, indicate date, dose, and route) Diet: PO Recent Labs Lab 09/14/24 0348 09/15/24 0504 09/18/24 0329 HGB 10.9* 11.2* -- HCT 35.8* 37.1 -- PLT 134* 133* -- AST 18 -- -- ALT 31 -- -- ALKP 114 -- -- ALB 2.5* -- 2.7* Date INR Dose Received 08/28 5.4 per [facility] paperwork - 08/29 - - 08/30 2.7 2 mg at [facility] 08/31 1.8 - 09/01 1.6 2 mg 09/02 1.9 2 mg 09/03 2.6 hold 09/04 3.7 hold 09/05 2.2 2 mg 09/06 1.7 Missed dose as was npo 09/07 1.4 2 mg 09/08 1.8 1 mg 09/09 1.5 2 mg 09/10 1.3 2 mg 09/11 1.3 2 mg 09/12 1.4 2.5 mg 09/13 1.2 4 mg 09/14 1.3 4 mg 09/15 1.4 6 mg 09/16 1.4 6 mg 09/17 1.5 6 mg 09/18 1.6 7.5 mg 09/19 1.5 7.5 mg 09/20 1.6 7.5 mg Drug interactions: Potential to increase INR: Potential to decrease INR: - Potential to increase the risk of bleeding: aspirin, sertraline Warfarin Sensitivity: high, based on the following risk factors: albumin < or = to 2.5, concomitant antiplatelet therapy, thrombocytopenia, age 66-79, 1 moderate drug interaction, and diagnosis ofheart failure. Hgb/Hct today are stable INR today subtherapeutic The plan is to give 7.5 mg tonight. Will recheck an INR in the morning to assist with subsequent dosing. Pharmacy will continue to monitor labs and notes daily, adjusting the dose as clinically appropriate. Thank you for the consult. Pharmacy to dose per Dr. Neftali CLAYTON, PharmD Phone number: [phone] 09/20/2024 9:58 AM ROOM SUPERVISOR * Teresa Aparicio RN - 09/20/2024 9:26 AM CST Images from the original note were not included. 09/20/24 0913 Wound 09/10/24 Knee Anterior;Right scab Date First Assessed/Time First Assessed: 09/10/24 0300 Location: Knee Wound Location Orientation: Anterior;Right Wound Description (Comments): scab Wound Image Wound Bed Assessment Eschar Partial Coverage;Dry;Red;Brown;Light purple;Hassan Anya-wound Assessment Dry;Pale;Red Wound Length (cm) 0.8 cm Wound Width (cm) 1 cm Wound Depth (cm) 0.2 cm Wound Surface Area (cm^2) 0.8 cm^2 % Healed 11.11 Drainage Amount Scant Drainage Description Serosanguineous Drainage odor None Dressing Other (Comment) (Prinsna covered with Mepilex) Periwound Dressing Foam border adhesive Dressing Changed Changed Dressing Status Clean;Dry;Intact Wound 09/13/24 Ear Right Date First Assessed/Time First Assessed: 09/13/24 1341 Location: Ear Wound Location Orientation: Right Wound Bed Assessment Clean;Dry;Open to Air Anya-wound Assessment Clean;Dry;Intact Dressing Open to Air Wound 09/13/24 Ear Left Date First Assessed/Time First Assessed: 09/13/24 1344 Location: Ear Wound Location Orientation: Left Wound Bed Assessment Clean;Dry;Open to Air Anya-wound Assessment Clean;Dry;Intact Dressing Open to Air [facility] follow up visit. Coccyx site: Patient up in chair at this time. Will come back later to reassess. R lower leg site, improving. Dry scabbing present. Wound cleansed with normal saline, patted dry then covered with Mepilex dressing. Right and Left ear pressure injuries have healed. Skin intact, pink.Continue to use oxygen tubing foam support to prevent re-injury. Right Knee: Dry partial eschar, red/pink. Wound cleansed with normal saline then applied radha covered with Mepilex dressing. Recommendations: -R lower leg wound- Apply foam mepilex dressing. Change every 3-5 days and PRN. -R knee wound- Apply piece of ag radha to wound bed depth, cover with foam dressing. Change every 3-5 days and PRN. -R/L ear- Apply mepitel 2x3 thin foam to bilateral ear lobes, change daily, use oxygen tubing foam support for off loading to site. -Coccyx down towards rectum wound, within skin fold, separate buttock cheeks to see- Cover with sacral foam dressing. Change every 3-5 days and PRN. - Use of waffle cushion while in chair, limit chair time to 1 hour - Q2 hourly turns while in bed - HOB less than 30 degrees to help with friction and shear prevention UNLESS CONTRAINDICATED. ROOM SUPERVISOR * Lulu Rizzo RN - 09/20/2024 8:39 AM CST 09/20/24 0975 Interdisciplinary Group Conference Team Members Present Physician;Case/Care management Physician present for group conference Dr Salcedo Patient Current Status Paient current status Inpatient Barriers to Discharge Inpatient Review Barriers to Discharge Inpatient Post-Acute Authorization Needed Complex - Social and/or Medical follow up Awaiting on insurance authorization with [employer] for swing bed placement. Patient expects to be discharged to Patient expects to be discharged to: Swing bed ([facility] Swing Bed Unit.) [facility] emailed to follow up on insurance authorization. Awaiting for a response. 0943-CM Specialist notified that insurance authorization is still pending. 0955- CM at [facility] is requesting updated clinicals be faxed to [phone]. Clinicals faxed via [employer]. [facility] ([phone][facility] if [facility] is needing a bipap at discharge she will need to know the setting. Dr. Salcedo made aware. Dr. Salcedo notified the Bipap setting are 07/28. Pito at [facility] updated. 1417- Pito notified that their facility has received insurance authorization. States she is working on getting bipap and facility is able to accept tomorrow. Nurse to Nurse call [phone] Fax discharge orders to [phone] Dr. Salcedo updated. 1430- Specialist to arrange transportation. Patient's daughter, Bonnie updated. Patient was asleep at time of visit. CM will update patient evan later time if time permits. 1446- [facility] transportation is scheduled for 1030 tomorrow. Luul Rizzo RN 5 Cardiac Reporting Developer ext. [phone] ROOM SUPERVISOR ROOM SUPERVISOR ROOM SUPERVISOR ROOM SUPERVISOR ROOM SUPERVISOR ROOM SUPERVISOR ROOM SUPERVISOR * Ludy Morrell MD - 09/20/2024 8:33 AM CST [facility] Nephrology Progress Note Obie Sims is a 69-year-old male patient. Brittany management HPI 69-year-old gentleman with past medical history significant for CKD stage III, atrial fibrillation,heart failure with reduced ejection fraction, coronary disease, aortic stenosis status post bioprosthetic aortic valve placement, pulmonary hypertension, COPD, obstructive sleep apnea, dyslipidemia, diabetes mellitus type 2, stroke, anxiety, hypertension, restless leg syndrome who presented due to BRITTANY and hyperkalemia. Patient had a fall on 08/18/2024, initially declined treatment but ultimately presented to outside ED 2 days ago with rib pain and knee pain. He also reported shortness of breath and lower extremity swelling. His creatinine was found to be 2 with potassium 5.9. Patient transferred to [facility] for BRITTANY and hyperkalemia management. Nephrology consulted to manage kidney diseas Subjective Reports that he is doing fine. Dyspnea resolved. No chest pain. No urinary complaints. Good appetite. Blood pressure controlled Review Of Systems 12 point negative Current Facility-Administered Medications Medication Dose Route Frequency Provider Last Rate Last Admin acetaminophen (TYLENOL) tablet 650 mg 650 mg Oral Q4H PRN Keyona Miller MD acetylcysteine 10 % (MUCOMYST) inhalation solution 200 mg 200 mg Nebulization 2 times daily Danika Salcedo MD albuterol (PROVENTIL) (2.5 MG/3ML) 0.083% nebulizer solution 2.5 mg 2.5 mg Nebulization Q2H PRN Keyona Miller MD 2.5 mg at 09/04/24 0724 allopurinol (ZYLOPRIM) tablet 200 mg 200 mg Oral Daily Keyona Miller MD 200 mg at 09/19/24 0927 aspirin chewable tablet 81 mg 81 mg Oral Daily Keyona Miller MD 81 mg at 09/19/24 0927 atorvastatin (LIPITOR) tablet 80 mg 80 mg Oral Nightly at bedtime Keyona Miller MD 80mg at 09/19/24 2108 bumetanide (BUMEX) tablet 2 mg 2 mg Oral Daily Juanpablo Paresh Herman MD 2 mg at 09/19/24 0927 clotrimazole-betamethasone (LOTRISONE) cream Topical Q12H Nikolas Jiménez MD Given at 09/19/24 2108 dextrose (GLUTOSE) 40 % oral gel 37.5-75 g 15-30 g of dextrose Oral PRN Keyona Miller MD dextrose 10 % bolus infusion 125-250 mL 125-250 mL Intravenous PRN Keyona Miller MD Stopped at 09/06/24 1640 fentaNYL (SUBLIMAZE) injection 25 mcg 25 mcg Intravenous Q10 Min PRN Keyona Miller MD folic acid (FOLVITE) tablet 1 mg 1 mg Oral Daily Keyona Miller MD 1 mg at 09/19/24 0927 glipiZIDE (GLUCOTROL) tablet 10 mg 10 mg Oral QAM COLE Barrios MD 10 mg at 09/20/24 0701 glucagon injection 1 mg 1 mg Intramuscular Once PRN Keyona Miller MD HYDROcodone-acetaminophen (NORCO) 5-325 MG tablet 1 tablet 1 tablet Oral Q4H PRN Keyona Miller MD 1 tablet at 09/19/242106 HYDROmorphone (DILAUDID) injection 0.2 mg 0.2 mg Intravenous Q2H PRN Nikolas Jiménez MD 0.2 mg at 09/19/242200 hydrOXYzine (ATARAX) tablet 50 mg 50 mg Per NG Tube TID PRN Keyona Miller MD insulin glargine (LANTUS) injection 18 Units 18 Units Subcutaneous Nightly at bedtime Sandra Hollingsworth MD 18 Units at 09/19/24 210 insulin lispro (HUMALOG/ADMELOG) injection 0-3 Units 0-3 Units Subcutaneous TID COLE Barrios MD 2 Units at 09/17/24 1645 insulin lispro (HUMALOG/ADMELOG) injection 6 Units 6 Units Subcutaneous TID COLE Barrios MD 6Units at 09/20/24 0701 ipratropium-albuterol (DUONEB) 0.5-2.5 (3) MG/3ML nebulizer solution 3 mL 3 mL Nebulization Q4H Danika Salcedo MD 3 mL at 09/20/24 0527 metoprolol succinate ER (TOPROL-XL) 24 hr tablet 12.5 mg 12.5 mg Oral Daily Juanpablo Paresh Herman MD 12.5 mg at 09/19/24 09 naLOXone (NARCAN) injection 0.4 mg 0.4 mg Intravenous PRN Nikolas Jiménez MD nystatin (MYCOSTATIN) 257756 UNIT/ML suspension 5 mL 5 mL Oral 4x Daily Nikolas Jiménez MD 5 mL at 09/19/242107 nystatin (MYCOSTATIN) powder Topical BID Nikolas Jiménez MD Given at 09/19/242107 ondansetron (ZOFRAN) injection 4 mg 4 mg Intravenous Q8H PRN Nikolas Jiménez MD polyethylene glycol (GLYCOLAX) packet 17 g 17 g Oral Daily PRN Keyona Miller MD pregabalin (LYRICA) capsule 150 mg 150 mg Oral BID Keyona Miller MD 150 mg at 09/19/242107 senna-docusate (SENOKOT-S) 8.6-50 MG tablet 1 tablet 1 tablet Oral BID Keyona Miller MD 1 tablet at 09/19/24926 sertraline (ZOLOFT) tablet 50 mg 50 mg Oral Daily Keyona Miller MD 50 mg at 09/19/24926 traZODone (DESYREL) tablet 300 mg 300 mg Oral Nightly at bedtime Juanpablo Herman MD 300 mg at 09/19/242107 warfarin (COUMADIN) pharmacy to dose placeholder Oral See Admin Instructions Nikolas Jiménez MD Review of patient's allergies indicates: No Known Allergies Principal Problem: CHF exacerbation ([facility]/HCC [facility]) SNOMED CT(R): ACUTE EXACERBATION OF CHRONIC CONGESTIVE HEART FAILURE Filed Vitals: 09/20/24 0019 09/20/24 0426 09/20/24 0500 09/20/24 0802 BP: 107/65 119/51 111/63 Pulse: (!) 58 (!) 58 (!) 46 Resp: 17 Temp: 97.7 ??F (36.5 ??C) 97.9 ??F (36.6 ??C) 97.9 ??F (36.6 ??C) TempSrc: Oral Oral Oral SpO2: 97% 98% 92% Weight: 102.2 kg (225 lb 5 oz) Height: Last 3 Recorded Weights 09/14/24 0900 09/18/24 0500 09/20/24 0500 Weight: 100.7 kg (222 lb 0.1 oz) 101 kg (222 lb 11.2 oz) 102.2 kg (225 lb 5 oz) Intake/Output Summary (Last 24 hours) at 09/20/2024 0833 Last data filed at 09/20/2024 0426 Gross per 24 hour Intake 610 ml Output 1750 ml Net -1140 ml Physical Exam: -GENERAL: No acute distress, breathing comfortably on room air. -EYES: Extraocular movements intact -ENT: Neck supple, Septum is midline. -LUNG: Clear to auscultation bilaterally, No wheezes, No crackles -CVS: Regular rate rhythm, S1 and S2 normal, No murmurs, -ABDOMEN: Soft, nondistended, Nontender, Bowel sounds observed -EXT: no lower Ext edema. -NEURO: Alert, awake, oriented x3, No gross neuro deficit -SKIN: Skin color, texture, turgor normal. No rashes or lesions LABs Recent Labs Lab 09/14/24 0348 09/15/24 0504 09/16/24 0421 09/17/24 0343 09/18/24 0329 09/20/24 0356 NA 137 139 -- -- 137 135* K 4.1 4.0 -- -- 4.3 4.2 CL 101 104 -- -- 101 99 CO2 31.4 32.9* -- -- 33.4* 33.1* AGAP 4.6 2.1 -- -- 2.6 2.9 BUN 46* 44* -- -- 32* 34* CR 1.39* 1.24 -- -- 1.23 1.26 GLU 228* 55* -- -- 91 105 CA 8.6 8.5 -- -- 8.8 9.0 MAGNESIUM 2.7* 2.4 2.4 2.3 -- -- PHOS 2.4* 2.9 3.4 3.3 3.5 -- Recent Labs Lab 09/14/24 03409/15/24 0504 WBC 14.68* 11.65* RBC 3.77* 3.90* HGB 10.9* 11.2* HCT 35.8* 37.1 MCV 95.0 95.1 MCH 28.9 28.7 MCHC 30.4* 30.2* PLT 134* 133* RDW 15.3* 15.6* MPV 14.0* 13.9* Assessment/Plan: 69-year-old gentleman with past medical history significant for CKD stage III, atrial fibrillation,heart failure with reduced ejection fraction, coronary disease, aortic stenosis status post bioprosthetic aortic valve placement, pulmonary hypertension, COPD, obstructive sleep apnea, dyslipidemia, diabetes mellitus type 2, stroke, anxiety, hypertension, restless leg syndrome who presented due to BRITTANY and hyperkalemia. Patient had a fall on 08/18/2024, initially declined treatment but ultimately presented to outside ED 2 days ago with rib pain and knee pain. He also reported shortness of breath and lower extremity swelling. His creatinine was found to be 2 with potassium 5.9. Patient transferred to [facility] for BRITTANY and hyperkalemia management. BRITTANY on CKD stage III -Baseline creatinine 1.3-1.5. Patient also follows with Dr. Beltran -At outside hospital creatinine was 2.0, patient received fluids and creatinine increased to 2.8. This is likely related to hemodynamics/fluid overload. -Renal ultrasound showed suboptimal visualization of right kidney. No right sided hydronephrosis. No increase echogenicity. Right kidney 11.6 cm. Left kidney was not seen. -CPK normal, urinalysis reviewed. BRITTANY serology negative -Initial chest x-ray showed pulmonary vascular congestion and interstitial edema -s/p aggressive IV diuresis. Net -20 liter uf and weight down 22 kilos -Creatinine stable at 1.2 with good urine output -Appears euvolemic, on Bumex oral 2 mg once daily -Strict I's/O, avoid nephrotoxins -Daily renal panel 2. HTN. -Blood pressure stable -Continue to avoid STEVIE/ARB 3. Anemia of chronic disease. Hemoglobin stable 4. Electrolytes. -stable. 5. Renal osteodystrophy. Calcium and phosphorus levels are okay 6. Disposition- stable . Nephrology will sign off, please call with any question or concern. follow-up with Dr. Beltran in 1 to 2 weeks after discharge with renal panel Thank you for allowing me to participate in the care of this patient. We will continue to follow this patient with you. Please contact us with further questions. LUDY MORRELL MD 09/20/2024 ROOM SUPERVISOR * Danika Salcedo MD - 09/19/2024 2:58 PM CST Images from the original note were not included. [facility] Hospitalist Progress note Chief Complaint: Shortness of breath ASSESSMENT/PLAN: 69-year-old male with a past medical history of CKD stage III, atrial fibrillation on warfarin, heart failure with reduced ejection fraction, coronary artery disease, aortic stenosis status post bioprosthetic aortic valve replacement, pulmonary hypertension, COPD/asthma, obstructive sleep apnea, hyp erlipidemia, diabetes mellitus type 2, CVA, carotid disease, anxiety/depression, hypertension, PAD,and RLS. He was transferred to [facility] with BRITTANY and hyperkalemia. During this hospitalization patient developed worsening hypoxic respiratory failure requiring intubation, transferred to ICU. In ICU he was treated with IV Lasix drip and also treated for possible aspiration pneumonia. Now extubated, transferred out of ICU on 09/07/2023 Acute on chronic CHF with reduced ejection fraction Anasarca Valvular heart disease Acute hypoxic/hypercarbic respiratory failure Pulmonary hypertension Echocardiogram from February 2024 reveals an ejection fraction of 40 to 45% with bioprosthetic aortic valve, no central or periprosthetic aortic regurgitation, mild mitral regurgitation, and mild tricuspid regurgitation. Worsening hypoxic respiratory failure requiring ICU admission, intubation -Strict intake and output with daily weights. Monitor renal functions -Holding Entresto in light of BRITTANY. Continue local -[facility] nephrology consulted. Nephrology dosing diuretics as and when needed, currently on p.o. Bumex Cardiology following, appreciate recommendations- Continue BiPAP at night for hypercapnic respiratory failure. Patient will need Arranged at rehab Patient will need a BiPAP arrangement at facility, pulmonary saw. Appreciate assistance Creatinine improving monitor Monitor respiratory status closely Pneumonia-HCAP versus aspiration Completed antibiotic course. Treated with Zosyn Encourage incentive spirometry Supplemental oxygen as needed BRITTANY on CKD stage III improving Hyperkalemia, resolved Hypernatremia Sodium improving Monitor renal functions, nephrology following Renal functions improving Will discuss with nephrology, started diuretics as tolerated Ground-level fall Rib fractures Generalized weakness -CT of the chest shows acute fractures of the seventh and eighth right ribs. -PT/OT consulted and recommended SNF. -Pain control. -Incentive spirometer. Concern for pneumonia probably HCAP versus aspiration Completed antibiotic course hematuria -UA negative. -Likely due to traumatic Oneill insertion and/or trauma to Oneill in setting of supratherapeutic INR.Initial UA with no RBCs. Resolved, monitor Atrial fibrillation Supratherapeutic INR, resolved Nonsustained ventricular tachycardia -INR was 5.4 on presentation. -Continue beta-kim for rate control. -Pharmacy consulted for Coumadin dosing. Monitor INR, INR this morning 1.5 -Monitor telemetry. nonsustained ventricular tachycardia Continue small dose of beta-kim Continue current regimen, cardiology following. Appreciate cardiology Diabetes mellitus type 2 -Continue insulin regimen as per endocrinology, appreciate recommendations for discharge plan Monitor Accu-Cheks, diabetic diet Coronary artery disease Hypertension Hyperlipidemia -Heart catheterization from 2020 revealed a 60% proximal LAD stenosis, 50% ostial RCA stenosis, bioprosthetic aortic valve without aortic regurgitation, and severe pulmonary hypertension. Continue beta-kim and statin -Monitor telemetry. COPD/asthma overlap syndrome Hypercarbic respiratory failure-rate COPD exacerbation Continue bronchodilators. prednisone 40 mg daily-total 5 days Completed antibiotic therapy CVA Carotid disease PAD -Continue aspirin and statin. DVT prophylaxis On Coumadin Body mass index is 35.94 kg/m??. Discussed with RN on the plan PT/OT recommending SNF, discussed with case management assistant on discharge plan, pending insurance authorization approval for discharge Disussed with patient/staff about current medical condition and management Code status: DNR SUBJECTIVE: Patient seen and examined Labs reviewed ROS: All other systems reviewed and negative except above Blood pressure 120/72, pulse (!) 57, temperature 97.9 ??F (36.6 ??C), temperature source Axillary, resp. rate 18, height 1.676 m (5' 6 ), weight 101 kg (222 lb 11.2 oz), SpO2 98%. Physical Exam Constitutional: Appearance: He is well-developed. HENT: Head: Normocephalic. Eyes: Pupils: Pupils are equal, round, and reactive to light. Cardiovascular: Rate and Rhythm: Normal rate. Heart sounds: Normal heart sounds. Pulmonary: Breath sounds: Normal breath sounds. Comments: Mild bibasilar crackles present Abdominal: General: Bowel sounds are normal. Palpations: Abdomen is soft. Tenderness: There is no abdominal tenderness. Musculoskeletal: Cervical back: Normal range of motion. Comments: Moves all extremities Skin: General: Skin is warm and dry. Neurological: Mental Status: He is alert and oriented to person, place, and time. Cranial Nerves: No cranial nerve deficit. Psychiatric: Mood and Affect: Mood normal. LABS:. No results for input(s): WBC , HGB , HCT , MCV , PLT , RBC in the last 72 hours. Recent Labs Lab 09/14/24 0348 09/15/24 0504 09/18/24 0329 NA 137 139 137 K 4.1 4.0 4.3 CL 101 104 101 CO2 31.4 32.9* 33.4* AGAP 4.6 2.1 2.6 BUN 46* 44* 32* CR 1.39* 1.24 1.23 GLU 228* 55* 91 CA 8.6 8.5 8.8 TP 6.9 -- -- ALB 2.5* -- 2.7* TBIL 0.7 -- -- ALKP 114 -- -- AST 18 -- -- ALT 31 -- -- Recent Labs Lab 09/17/24 0557 09/18/24 0329 09/19/24 0342 INR 1.5* 1.6* 1.5* Intake/Output Summary (Last 24 hours) at 09/19/2024 1458 Last data filed at 09/19/2024 1128 Gross per 24 hour Intake 480 ml Output 1300 ml Net -820 ml RADIOLOGY : REVIEWED MEDICATIONS Scheduled medications acetylcysteine 10 % 200 mg Nebulization 2 times daily allopurinol 200 mg Oral Daily aspirin 81 mg Oral Daily atorvastatin 80 mg Oral Nightly at bedtime bumetanide 2 mg Oral Daily clotrimazole-betamethasone Topical Q12H folic acid 1 mg Oral Daily glipiZIDE 10 mg Oral QAM AC insulin glargine 18 Units Subcutaneous Nightly at bedtime insulin lispro 0-3 Units Subcutaneous TID AC insulin lispro 6 Units Subcutaneous TID AC ipratropium-albuterol 3 mL Nebulization Q4H metoprolol succinate ER 12.5 mg Oral Daily nystatin 5 mL Oral 4x Daily nystatin Topical BID pregabalin 150 mg Oral BID senna-docusate 1 tablet Oral BID sertraline 50 mg Oral Daily traZODone 300 mg Oral Nightly at bedtime warfarin (COUMADIN) pharmacy to dose Oral See Admin Instructions warfarin 7.5 mg Oral Once Infusion PRN acetaminophen, albuterol, glucose, dextrose 10 % bolus, [DISCONTINUED] fentaNYL AND [DISCONTINUED] fentaNYL AND fentaNYL, glucagon, HYDROcodone- acetaminophen, HYDROmorphone, hydrOXYzine, naLOXone, ondansetron, polyethylene glycol DANIKA SALCEDO MD 2:58 PM 09/19/2024 ROOM SUPERVISOR * Sandra Hollingsworth MD - 09/19/2024 2:37 PM CST Progress Note Patient Name: Obie Sims Date of : 1955 Admission Date: 08/31/2024 Reason for Follow up: DM type 2 Subjective: He was sitting up in the chair resting comfortably,. Denies any complaint. Appetite has improved. Patient is going to rehab today Medications: Current Facility-Administered Medications Medication Dose Route Frequency Provider Last Rate Last Admin acetaminophen (TYLENOL) tablet 650 mg 650 mg Oral Q4H PRN Keyona Miller MD acetylcysteine 10 % (MUCOMYST) inhalation solution 200 mg 200 mg Nebulization 2 times daily Juanpablo Herman MD 200 mg at 09/18/242051 albuterol (PROVENTIL) (2.5 MG/3ML) 0.083% nebulizer solution 2.5 mg 2.5 mg Nebulization Q2H PRN Keyona Miller MD 2.5 mg at 09/04/24 0724 allopurinol (ZYLOPRIM) tablet 200 mg 200 mg Oral Daily Keyona Miller MD 200 mg at 09/19/2427 aspirin chewable tablet 81 mg 81 mg Oral Daily Keyona Miller MD 81 mg at 09/19/24926 atorvastatin (LIPITOR) tablet 80 mg 80 mg Oral Nightly at bedtime Keyona Miller MD 80mg at 09/18/242110 bumetanide (BUMEX) tablet 2 mg 2 mg Oral Daily Juanpablo Herman MD 2 mg at 09/19/24926 clotrimazole-betamethasone (LOTRISONE) cream Topical Q12H Nikolas Jiménez MD Given at 09/19/24 0928 dextrose (GLUTOSE) 40 % oral gel 37.5-75 g 15-30 g of dextrose Oral PRN Keyona Miller MD dextrose 10 % bolus infusion 125-250 mL 125-250 mL Intravenous PRN Keyona Miller MD Stopped at 09/06/24 1640 fentaNYL (SUBLIMAZE) injection 25 mcg 25 mcg Intravenous Q10 Min PRN Keyona Miller MD folic acid (FOLVITE) tablet 1 mg 1 mg Oral Daily Keyona Miller MD 1 mg at 09/19/24 0927 glipiZIDE (GLUCOTROL) tablet 10 mg 10 mg Oral QAM COLE Barrios MD 10 mg at 09/19/24 0619 glucagon injection 1 mg 1 mg Intramuscular Once PRN Keyona Miller MD HYDROcodone-acetaminophen (NORCO) 5-325 MG tablet 1 tablet 1 tablet Oral Q4H PRN Keyona Miller MD 1 tablet at 09/18/24 211 HYDROmorphone (DILAUDID) injection 0.2 mg 0.2 mg Intravenous Q2H PRN Nikolas Jiménez MD 0.2 mg at 09/18/24 2225 hydrOXYzine (ATARAX) tablet 50 mg 50 mg Per NG Tube TID PRN Keyona Miller MD insulin glargine (LANTUS) injection 18 Units 18 Units Subcutaneous Nightly at bedtime Sandra Hollingsworth MD 18 Units at 09/18/24 2113 insulin lispro (HUMALOG/ADMELOG) injection 0-3 Units 0-3 Units Subcutaneous TID COLE Barrios MD 2 Units at 09/17/24 1645 insulin lispro (HUMALOG/ADMELOG) injection 6 Units 6 Units Subcutaneous TID COLE Barrios MD 6Units at 09/19/24 1318 ipratropium-albuterol (DUONEB) 0.5-2.5 (3) MG/3ML nebulizer solution 3 mL 3 mL Nebulization Q4H Juanpablo Herman MD 3 mL at 09/19/24 1318 metoprolol succinate ER (TOPROL-XL) 24 hr tablet 12.5 mg 12.5 mg Oral Daily Juanpablo Herman MD 12.5 mg at 09/19/24926 naLOXone (NARCAN) injection 0.4 mg 0.4 mg Intravenous PRN Nikolas Jiménez MD nystatin (MYCOSTATIN) 126785 UNIT/ML suspension 5 mL 5 mL Oral 4x Daily Nikolas Jiménez MD 5 mL at 09/18/242111 nystatin (MYCOSTATIN) powder Topical BID Nikolas Jiménez MD Given at 09/19/24927 ondansetron (ZOFRAN) injection 4 mg 4 mg Intravenous Q8H PRN Nikolas Jiménez MD polyethylene glycol (GLYCOLAX) packet 17 g 17 g Oral Daily PRN Keyona Miller MD pregabalin (LYRICA) capsule 150 mg 150 mg Oral BID Keyona Miller MD 150 mg at 09/19/24926 senna-docusate (SENOKOT-S) 8.6-50 MG tablet 1 tablet 1 tablet Oral BID Keyona Miller MD 1 tablet at 09/19/24926 sertraline (ZOLOFT) tablet 50 mg 50 mg Oral Daily Keyona Miller MD 50 mg at 09/19/24926 traZODone (DESYREL) tablet 300 mg 300 mg Oral Nightly at bedtime Juanpablo Herman MD 300 mg at 09/18/242110 warfarin (COUMADIN) pharmacy to dose placeholder Oral See Admin Instructions Nikolas Jiménez MD warfarin (COUMADIN) tablet 7.5 mg 7.5 mg Oral Once Danika Salcedo MD Objective: PHYSICAL EXAMINATION: GENERAL: well-developed, well-nourished .No apparent distress. Alert and oriented x3. VITAL SIGNS: As above Current Vitals: Weight: Last Recorded Weight 09/18/24 0500 Weight: 101 kg (222 lb 11.2 oz) Vitals: 09/19/24 1128 BP: 120/72 Pulse: (!) 57 Resp: Temp: SpO2: REVEIW OF SYSTEMS 12 point review of systems was obtained, it was negative except for symptoms mentioned above Labs: Recent Results (from the past 24 hours) POCT glucose Collection Time: 09/18/24 4:23 PM Result Value Ref Range GLUCOSE POC 112 (H) 70 - 109 POCT glucose Collection Time: 09/18/24 8:51 PM Result Value Ref Range GLUCOSE POC 123 (H) 70 - 109 PROTIME/INR, VENOUS (PROTHROMBIN TIME) Collection Time: 09/19/24 3:42 AM Result Value Ref Range PROTIME 17.4 (H) 9.4 - 12.5 SEC INR 1.5 (H) 0.8 - 1.1 POCT glucose Collection Time: 09/19/24 5:22 AM Result Value Ref Range GLUCOSE POC 134 (H) 70 - 109 POCT glucose Collection Time: 09/19/24 11:30 AM Result Value Ref Range GLUCOSE POC 147 (H) 70 - 109 Recent Labs Lab 09/17/24 2117 09/18/24 0604 09/18/24 1109 09/18/24 1623 09/18/24 2051 09/19/24 0522 09/19/24 1130 GLUCOSEPOC 155* 74 86 112* 123* 134* 147* Assessment and Plan Type 2 diabetes Current use of insulin Obesity Home DM program: Glipizide 10 mg daily (unsure of dose); Jardiance 25 mg daily; Ozempic 1 mg daily A1c here 7% PCP: Dr. Megan Infante in [place] His glycemic profile was reviewed with the patient, his glycemic profile has improved, he can be discharged on current diabetes regimen, he will follow-up with his primary care after discharge for diabetes management. -- Lantus 18 units at night --Continue glipizide 10 mg every morning -- Humalog 6 units AC 3 times daily along with correctional insulin -- Accu-Chek before meals and at bedtime Call parameters in place Obesity; BMI 35. MNT Plan was discussed with patient and primary team Thank you SANDRA HOLLINGSWORTH MD 09/19/2024 ROOM SUPERVISOR * Wallace Hernandez MD - 09/19/2024 12:06 PM CST Medical Necessity Recommendation Patient Name: Obie Sims Admit Date:08/31/2024 Age/Gender: 69-year-old/male Attending Physician: Danika Salcedo MD Physician Advisor: WALLACE HERNANDEZ MD Current admit order: Inpatient Type of review: Peer to Peer review complete Recommendation Summary 09/19/2024 : Physician Advisor Recommended Status: Inpatient Recommendations for 09/19/2024 P2p completed and IP status approved ROOM SUPERVISOR * Jordyn Arboleda JAKE Man - 09/19/2024 10:49 AM CST OT Treatment Discharge Recommendation: OT/PT at SNF Activity Recommendation for pediatric assistant: up with 1, gait belt, 2ww. Chair for all meals. Ambulate to restroom with staff. 09/19/24 1023 Therapy Visit Reason for admission Pt presents with BRITTANY, hyperkalemia, and acute on chronic systolic CHF. Of notept with recent GLF 08/18 with right 7-8 rib fxs. Pt with respiratory failure and COPD exacerbation 09/03 and required intubation. Pt extubated 09/06. 09/11 pt with 11 beats of v tach. ..........PMH: afib, LV dysfunction, CAD, hypertension aortic stenosis, chronic anticoagulation, s/p aortic valve replacement, varicose veins, claudication, nstemi, pulmonary hypertension, CHF, copd, obstructive sleep apnea, asthma, hyperlipidemia, diabetes mellitus type 2, TIA, arthritis, carotid disease, rib fractures, chronic venous insufficiency...............Therapy orders: eval and treat. Ordering Provider MD Herman Verified Two Patient Identifiers Yes Patient consents to therapy Yes Acute Inpatient OT Time Calculation OT Start Time 1023 OT Stop Time 1049 OT Time Calculation (min) 26 min Precautions General Precautions Bed Alarm;Chair Alarm;Fall Risk;Supplemental oxygen Instructed on Precautions Yes;Verbalizes understanding;Needs reinforcement and education Other tele Prior Function PLOF Comments Per Eval: Pt lives with his [...] riser. Since last admission patient reports he hasbeen working with home health PT and was about to be discharged from their services secondary to good progress. Does not have 15/[address] Subjective Subjective RN ok'd therapy session at this time and pt agreeable to participation. Pt seen in room 516 and gait belt used during session for transfers/mobility. Pt seated in chair upon arrival and departure with alarm in place and activated. Pain Pain No Activity Tolerance Activity Tolerance Comments Pt tolerance continues to improve. Cognition Overall Cognitive Status WFL Orientation Level Oriented X4 Following Commands Follows all commands and directions without difficulty Safety Judgment Good awareness of safety precautions ADL Grooming Assistance Stand by;Sitting in chair Grooming Deficit Wash/dry hands;Wash/dry face Toileting Assistance Maximal Toileting Deficit Perineal hygiene Toileting Comment would not attempt to assist with task this date. Functional Transfers Sit to Stand Min assist Toilet Transfers Grab bars;Min assist Functional Mobility Pt performed functional mobility in room/restroom and hallway with use of 2ww and CGA mocking household distances. No overt LOB noted throughout. Balance Sitting - Static Independent Sitting - Dynamic Independent Standing - Static CGA;Support of both upper extremities Standing - Dynamic CGA;Support of both upper extremities Other (Comment) No overt LOB noted, but fatigued quickly. OT Assessment OT Assessment Pt making progress toward OT goals at this time. He improved his activity tolerance and mobility. Pt continues to be limited by weakness, fatigue, and deconditioning. Pt would continue to benefit from skilled OT in the acute setting and then SNF at d/c to improve transfers,mobility, activity tolerance, and ADL [place] to maximize performance and ensure a safe d/c plan. Discharge Recommendation OT Recommendation OT at correction facility Plan Progress Progressing toward goals OT - Next Appointment 09/19/24 If this is the last treatment note, it will serve as the discharge summary Yes End of Session End of Session Safety Chair alarm set/activated;Call light within reach;Nursing aware of session Education: Primary Learners Name: Obie Sims Primary Language of learner: Bangladeshi Patient was educated on transfers ADLs balance therapy plan safety. Education was completed one to one this date. Preference of learning new concepts one to one Barriers to education this date were fatigue. Response to education this date needs follow up needs assistance. ROOM SUPERVISOR * Honey Whitmore RN - 09/19/2024 10:30 AM CST 09/19/24 1030 Interdisciplinary Group Conference Team Members Present Physician;Case/Care management;Nursing Physician present for group conference [place] Barriers to Discharge Inpatient Review Barriers to Discharge Inpatient Post-Acute Authorization Needed Post-Acute Authorization Needed follow up Pending ins auth with [employer] Patient expects to be discharged to Patient expects to be discharged to: Swing bed ([facility]) 1150: Insurance still pending. 1445: Per Mariel at [facility], insurance still pending. ROOM SUPERVISOR ROOM SUPERVISOR * CONSTANTIN Mckeon - 09/19/2024 9:27 AM CST SPEECH THERAPY TREATMENT NOTE Patient Name: Obie Sims : 1955 Date of Session: 09/19/2024 Primary Diagnosis: CHF exacerbation (CMS/HCC [facility]) Recommendations: 1.soft and bite size / mildy thick liquid 2.Aspiration precautions--upright with all PO intake, oral care, meds as tolerated, alternate bite/sips, slow rate 3.Continued ST services to monitor pt's diet tolerance and continue pharyngeal strengthening 4. Continued ST services at the next level of care to further treat dysphagia SUBJECTIVE: Spoke with RNLouisa, who cleared pt to participate in ST tx. RN reported ST was re-consulted to trial diet upgrade. Pt was alert and agreeable to tx. Pain Score: denied pain Location: Tolerable: Communication: verbal Patient Goal: upgrade diet Plan of Care Reviewed: yes OBJECTIVE: Skilled Interventions: Pt participated in swallowing tx. Pt independently completed feeding and oral care independently. Pt consumed 4 oz mildly thick liquid, ~1 oz puree via tsp, and 1 whole kaleb cracker. No anterior loss. Absent wet vocal quality. Timely swallow. No oral residue. Pt did not demo nstrate any overt s/s of aspiration at this time. Pt completed effortful swallow x 6 given moderately extended time. Pt benefited from intermittent sips of mildly thick liquid to initiate swallow. Endurance/Vitals: WBC 11.65 as of 09/15/24 No new chest imaging as of 09/09/24 Education Provided : CYTOLOGY TEACHER provided verbal education to pt re: role of CYTOLOGY TEACHER, tx rationale, aspiration risk/signs, diet recommendations, safe swallowing strategies, pharyngeal strengthening exercises, and POC. Pt v/u. ASSESSMENT Pt presents with increased swallowing function as evidenced by pt tolerating soft and bite size / mildly thick liquid trials without demonstrating any overt s/s of aspiration. Pt independently recalled and utilized safe swallowing strategies throughout tx session. Pt recalled pharyngeal s trengthening exercise (ie., effortful swallow) and completed x 6 reps given moderately extended time. Pt benefited from intermittent sips of mildly thick liquids to assist with swallow initiation throughout pharyngeal strengthening. Recommend upgrade to Soft and Bite size / Mildly thick liquid dietwith use of safe swallowing strategies--upright with all PO intake, oral care, meds as tolerated, alternate bite/sips, slow rate. ST to follow to continue pharyngeal strengthening. Pt may benefit from repeat MOUSTAPHA at next level of care. Interdisciplinary Communication: Louisa MORRISSEY; Dr. Salcedo Barriers/Safety: comorbidities Nursing Recommendations: meds as tolerated Upon completion of session patient disposition: Pt was left sitting upright in chair with call light within reach. CURRENT DIET: Soft and Bite Size / Mildly Thick Liquid CONSTANTIN Mckeon Time In: 928 Time Out: 951 ROOM SUPERVISOR ROOM SUPERVISOR * Louisa Gtz RN - 09/19/2024 9:26 AM CST Adequate for discharge ROOM SUPERVISOR * Yanni Presley, PharmD, [facility] - 09/19/2024 9:04 AM CST Warfarin - Pharmacy Dosing Service Note Obie Sims is a 69-year-old male for which pharmacy has been consulted to dose warfarin for A.fib. Goal INR is 2-3. Warfarin Order Set Activated: Yes Warfarin Start Date: continuation from home Past Medical History: Diagnosis Date Abnormal ankle brachial index ([facility]) Acute on chronic heart failure, unspecified heart failure type ([facility]) Anxiety Aortic valve stenosis Arthritis Asthma, mild persistent ([facility]) 04/06/2021 Atrial fibrillation ([facility]) s/p PVI/[facility] 10/2015 Bilateral leg pain Carotid disease, bilateral ([facility]) CHF (congestive heart failure) ([facility]) Claudication ([facility]) COPD (chronic obstructive pulmonary disease) ([facility]) Coronary artery disease Diabetes mellitus, type II ([facility]) Edema 04/19/2018 2+ pitting History of blood transfusion Hyperlipidemia Hypertension LV dysfunction Non-pressure chronic ulcer of left calf limited to breakdown of skin ([facility]) 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 breakdown of skin ([facility]) Osteoarthritis PAD (peripheral artery disease) ([facility]) Pneumonia Restless leg syndrome S/P aortic valve replacement with bioprosthetic valve 2013 SOB (shortness of breath) Stroke ([facility]) Varicose veins of bilateral lower extremities with other complications Weight gain with edema Home warfarin dose: warfarin 2 mg po daily per med rec Bridging agent: none Vitamin K use: No; (if yes, indicate date, dose, and route) Diet: PO Recent Labs Lab 09/14/24 0348 09/15/24 0504 09/18/24 0329 HGB 10.9* 11.2* -- HCT 35.8* 37.1 -- PLT 134* 133* -- AST 18 -- -- ALT 31 -- -- ALKP 114 -- -- ALB 2.5* -- 2.7* Date INR Dose Received 08/28 5.4 per [facility] paperwork - 08/29 - - 08/30 2.7 2 mg at [facility] 08/31 1.8 - 09/01 1.6 2 mg 09/02 1.9 2 mg 09/03 2.6 hold 09/04 3.7 hold 09/05 2.2 2 mg 09/06 1.7 Missed dose as was npo 09/07 1.4 2 mg 09/08 1.8 1 mg 09/09 1.5 2 mg 09/10 1.3 2 mg 09/11 1.3 2 mg 09/12 1.4 2.5 mg 09/13 1.2 4 mg 09/14 1.3 4 mg 09/15 1.4 6 mg 09/16 1.4 6 mg 09/17 1.5 6 mg 09/18 1.6 7.5 mg 09/19 1.5 Drug interactions: Potential to increase INR: Potential to decrease INR: - Potential to increase the risk of bleeding: aspirin, sertraline Warfarin Sensitivity: high, based on the following risk factors: albumin < or = to 2.5, concomitant antiplatelet therapy, thrombocytopenia, age 66-79, 1 moderate drug interaction, and diagnosis ofheart failure. Hgb/Hct today are stable INR today subtherapeutic The plan is to give 7.5 mg tonight. Will recheck an INR in the morning to assist with subsequent dosing. Pharmacy will continue to monitor labs and notes daily, adjusting the dose as clinically appropriate. Thank you for the consult. Pharmacy to dose per Dr. Neftali Presley, PharmD, [facility] Phone number: [phone] 09/19/2024 9:04 AM ROOM SUPERVISOR * Honey Whitmore RN - 09/19/2024 8:46 AM CST 09/19/24 0846 Forms Reinforcement Important Message from Medicare (Subsequent IMM) Signed Copy delivered ROOM SUPERVISOR * Kelly Wilson MD - 09/18/2024 1:33 PM CST Images from the original note were not included. [employer] Hospitalist Progress note Chief Complain: Respiratory failure ASSESSMENT /PLAN: Obie Sims is an 69-year-old male with a past medical history of CKD stage III, atrial fibrillation on warfarin, heart failure with reduced ejection fraction, coronary artery disease, aortic stenosis status post bioprosthetic aortic valve replacement, pulmonary hypertension, COPD/asthma, obstructive sleep apnea, hyperlipidemia, diabetes mellitus type 2, CVA, carotid disease, anxiety/depression, hypertension, PAD, and RLS. He was transferred to [facility] with BRITTANY and hyperkalemia. During this hospitalization patient developed worsening hypoxic respiratory failure requiring intubation, transferred to ICU. In ICU he was treated with IV Lasix drip and also treated for possible aspiration pneumonia. Now extubated, transferred out of ICU ON 09/07/2023 Acute on chronic heart failure with reduced ejection fraction Anasarca Pulmonary hypertension Valvular heart disease Acute respiratory failure with hypoxia/hypercarbia -Echocardiogram from February 2024 reveals an ejection fraction of 40 to 45% with bioprosthetic aortic valve, no central or periprosthetic aortic regurgitation, mild mitral regurgitation, and mild tricuspid regurgitation. Worsening hypoxic respiratory failure requiring ICU admission, intubation -Strict intake and output with daily weights. Monitor renal functions -Holding Entresto in light of BRITTANY. Will resume zjly-[id number]-[id number] dose -[facility] nephrology consulted. Nephrology dosing diuretics as and when needed Cardiology following, appreciate recommendations- Continue BiPAP at night for hypercapnic respiratory failure. Patient will need Arranged at rehab Patient will need a BiPAP arrangement at facility, pulmonary saw. Appreciate assistance Creatinine improving monitor Monitor respiratory status closely Pneumonia-HCAP versus aspiration Completed antibiotic course. Treated with Zosyn Encourage incentive spirometry Supplemental oxygen as needed BRITTANY on CKD stage III improving Hyperkalemia, resolved Hypernatremia Sodium improving Monitor renal functions, nephrology following Renal functions improving Will discuss with nephrology, started diuretics as tolerated Ground-level fall Rib fractures Generalized weakness -CT of the chest shows acute fractures of the seventh and eighth right ribs. -PT/OT consult. -Pain control. -Incentive spirometer. Concern for pneumonia probably HCAP versus aspiration Completed antibiotic course hematuria -UA negative. -Likely due to traumatic Oneill insertion and/or trauma to Oneill in setting of supratherapeutic INR.Initial UA with no RBCs. Resolved, monitor Atrial fibrillation Supratherapeutic INR, resolved Nonsustained ventricular tachycardia -INR was 5.4 on presentation. -Continue beta-kim for rate control. -Pharmacy consulted for Coumadin dosing. Monitor INR -Monitor telemetry. nonsustained ventricular tachycardia Continue small dose of beta-kim Continue current regimen, cardiology following. Appreciate cardiology Diabetes mellitus type 2 Labile blood sugar -Went up to greater than 500 couple days ago, had an episode of glycemia with blood sugars down to 30s this morning -Will consult [facility] endocrinology for further assistance. -Continue Jardiance. Continue sliding scale insulin and Lantus as indicated Coronary artery disease Hypertension Hyperlipidemia -Heart catheterization from 2020 revealed a 60% proximal LAD stenosis, 50% ostial RCA stenosis, bioprosthetic aortic valve without aortic regurgitation, and severe pulmonary hypertension. Will add small dose of beta-blockers, continue statins -Monitor telemetry. COPD/asthma overlap syndrome Hypercarbic respiratory failure-rate COPD exacerbation Continue bronchodilators. prednisone 40 mg daily-total 5 days Completed antibiotic therapy CVA Carotid disease PAD -Continue aspirin and statin. Body mass index is 35.94 kg/m??. DVT Prophylaxis:on warfarin Code Status: DNR Not Medically Ready/Awaiting Clinical Improvement Therapy recommending rehab placement case management involved discharge planning awaiting insuranceapproval SUBJECTIVE Patient seen and examined. Alert and oriented to time, place and person. Does not report any acute concerns. Using oxygen via nasal cannula OBJECTIVE Blood pressure 115/62, pulse 76, temperature 97.4 ??F (36.3 ??C), temperature source Oral, resp. rate 18, height 1.676 m (5' 6 ), weight 101 kg (222 lb 11.2 oz), SpO2 92%. Wt Readings from Last 3 Encounters: 09/18/24 101 kg (222 lb 11.2 oz) 08/24/24 106.6 kg (235 lb) 08/03/24 103 kg (227 lb) Review of Systems All other systems reviewed and are negative. Physical Exam Constitutional: Appearance: He is well-developed. HENT: Head: Normocephalic and atraumatic. Eyes: Pupils: Pupils are equal, round, and reactive to light. Cardiovascular: Rate and Rhythm: Normal rate and regular rhythm. Heart sounds: No murmur heard. No friction rub. Pulmonary: Breath sounds: No wheezing or rales. Chest: Chest wall: No tenderness. Abdominal: General: Bowel sounds are normal. Palpations: Abdomen is soft. Tenderness: There is no abdominal tenderness. There is no guarding or rebound. Musculoskeletal: General: Normal range of motion. Cervical back: Normal range of motion and neck supple. Skin: General: Skin is warm and dry. Findings: No rash. Neurological: Mental Status: He is alert and oriented to person, place, and time. LABS: No results for input(s): WBC , HGB , HCT , MCV , PLT , RBC in the last 72 hours. Recent Labs 09/18/24 0329 CO2 33.4* CL 101 GLU 91 K 4.3 NA 137 BUN 32* Intake/Output Summary (Last 24 hours) at 09/18/2024 1333 Last data filed at 09/18/2024 1240 Gross per 24 hour Intake 1978 ml Output 900 ml Net 1078 ml Microbiology Results (last 14 days) Procedure Component Value Units Date/Time MRSA PCR nares Screening [[id number]] Collected: 09/07/24 0848 Order Status: Sent Lab Status: No result Specimen: NASAL CULTURE, RESPIRATORY W/ GRAM STAIN [[id number]] Collected: 09/05/24 0740 Order Status: Completed Lab Status: Preliminary result Updated: 09/08/24 0640 Specimen: TRACHEAL ASPIRATE SPEC DESCRIPTION TRACHEAL ASPIRATE SPECIAL REQUESTS NO SPECIAL REQUEST GRAM STAIN RESULT <10 EPITHELIAL CELLS PER LPF GRAM STAIN RESULT >25 NEUTROPHILS PER LPF GRAM STAIN RESULT NO ORGANISMS SEEN CULTURE RESULT NO GROWTH 3 DAYS Gastric PH [[id number]] Order Status: No result Lab Status: No result Specimen: GASTRIC FLUID CULTURE, BACTERIA BLOOD [[id number]] Collected: 09/03/24 1223 Order Status: Completed Lab Status: Preliminary result Updated: 09/07/241926 Specimen: BLOOD SPEC DESCRIPTION BLOOD SPECIAL REQUESTS NO SPECIAL REQUEST CULTURE RESULT NO GROWTH 4 DAYS CULTURE, URINE [[id number]] Collected: 09/01/24 1110 Order Status: Completed Lab Status: Final result Updated: 09/03/24 0835 Specimen: URINE, CLEAN CATCH SPEC DESCRIPTION URINE CLEAN CATCH SPECIAL REQUESTS NO SPECIAL REQUEST CULTURE RESULT NO GROWTH (< OR = 1,000 CFU/ML) CULTURE, BACTERIA BLOOD X2 [[id number]] Collected: 08/31/24 1034 Order Status: Completed Lab Status: Final result Updated: 09/06/24 0011 Specimen: BLOOD SPEC DESCRIPTION BLOOD SPECIAL REQUESTS NO SPECIAL REQUEST CULTURE RESULT NO GROWTH 5 DAYS Radiology MEDICATIONS Scheduled medications acetylcysteine 10 % 200 mg Nebulization 2 times daily allopurinol 200 mg Oral Daily aspirin 81 mg Oral Daily atorvastatin 80 mg Oral Nightly at bedtime bumetanide 2 mg Oral Daily clotrimazole-betamethasone Topical Q12H folic acid 1 mg Oral Daily glipiZIDE 10 mg Oral QAM AC insulin glargine 18 Units Subcutaneous Nightly at bedtime insulin lispro 0-3 Units Subcutaneous TID AC insulin lispro 6 Units Subcutaneous TID AC ipratropium-albuterol 3 mL Nebulization Q4H metoprolol succinate ER 12.5 mg Oral Daily nystatin 5 mL Oral 4x Daily nystatin Topical BID pregabalin 150 mg Oral BID senna-docusate 1 tablet Oral BID sertraline 50 mg Oral Daily traZODone 300 mg Oral Nightly at bedtime warfarin (COUMADIN) pharmacy to dose Oral See Admin Instructions warfarin 7.5 mg Oral Once Infusion PRN acetaminophen, albuterol, glucose, dextrose 10 % bolus, [DISCONTINUED] fentaNYL AND [DISCONTINUED] fentaNYL AND fentaNYL, glucagon, HYDROcodone- acetaminophen, HYDROmorphone, hydrOXYzine, naLOXone, ondansetron, polyethylene glycol Kelly Wilson MD 1:33 PM 09/18/2024 ROOM SUPERVISOR * Sandra Hollingsworth MD - 09/18/2024 12:46 PM CST Progress Note Patient Name: Obie Sims Date of : 1955 Admission Date: 08/31/2024 Reason for Follow up: DM type 2 Subjective: Fasting blood sugar was 74, insulin regimen was adjusted denies shortness of breath, chest pain. Waiting for placement. Medications: Current Facility-Administered Medications Medication Dose Route Frequency Provider Last Rate Last Admin acetaminophen (TYLENOL) tablet 650 mg 650 mg Oral Q4H PRN Keyona Miller MD acetylcysteine 10 % (MUCOMYST) inhalation solution 200 mg 200 mg Nebulization 2 times daily Juanpablo Herman MD 200 mg at 09/18/24 0935 albuterol (PROVENTIL) (2.5 MG/3ML) 0.083% nebulizer solution 2.5 mg 2.5 mg Nebulization Q2H PRN Keyona Miller MD 2.5 mg at 09/04/24 0724 allopurinol (ZYLOPRIM) tablet 200 mg 200 mg Oral Daily Keyona Miller MD 200 mg at 09/18/24 0935 aspirin chewable tablet 81 mg 81 mg Oral Daily Keyona Miller MD 81 mg at 09/18/24 0935 atorvastatin (LIPITOR) tablet 80 mg 80 mg Oral Nightly at bedtime Keyona Miller MD 80mg at 09/17/24 2029 bumetanide (BUMEX) tablet 2 mg 2 mg Oral Daily Juanpablo Herman MD 2 mg at 09/18/24 0935 clotrimazole-betamethasone (LOTRISONE) cream Topical Q12H Nikolas Jiménez MD Given at 09/18/24 0938 dextrose (GLUTOSE) 40 % oral gel 37.5-75 g 15-30 g of dextrose Oral PRN Keyona Miller MD dextrose 10 % bolus infusion 125-250 mL 125-250 mL Intravenous PRN Keyona Miller MD Stopped at 09/06/24 1640 fentaNYL (SUBLIMAZE) injection 25 mcg 25 mcg Intravenous Q10 Min PRN Keyona Miller MD folic acid (FOLVITE) tablet 1 mg 1 mg Oral Daily Keyona Miller MD 1 mg at 09/18/24 0935 glipiZIDE (GLUCOTROL) tablet 10 mg 10 mg Oral QAM AC Isma Barrios MD 10 mg at 09/18/24 0945 glucagon injection 1 mg 1 mg Intramuscular Once PRN Keyona Miller MD HYDROcodone-acetaminophen (NORCO) 5-325 MG tablet 1 tablet 1 tablet Oral Q4H PRN Keyona Miller MD 1 tablet at 09/17/24 2037 HYDROmorphone (DILAUDID) injection 0.2 mg 0.2 mg Intravenous Q2H PRN Nikolas Jiménez MD 0.2 mg at 09/04/24 1620 hydrOXYzine (ATARAX) tablet 50 mg 50 mg Per NG Tube TID PRN Keyona Miller MD insulin glargine (LANTUS) injection 22 Units 22 Units Subcutaneous Nightly at bedtime Isma Barrios MD 22 Units at 09/17/24 2129 insulin lispro (HUMALOG/ADMELOG) injection 0-3 Units 0-3 Units Subcutaneous TID COLE Barrios MD 2 Units at 09/17/24 1645 insulin lispro (HUMALOG/ADMELOG) injection 6 Units 6 Units Subcutaneous TID COLE Barrios MD 6Units at 09/18/24 1218 ipratropium-albuterol (DUONEB) 0.5-2.5 (3) MG/3ML nebulizer solution 3 mL 3 mL Nebulization Q4H Juanpablo Herman MD 3 mL at 09/18/24 1218 metoprolol succinate ER (TOPROL-XL) 24 hr tablet 12.5 mg 12.5 mg Oral Daily Juanpablo Herman MD 12.5 mg at 09/18/24 0935 naLOXone (NARCAN) injection 0.4 mg 0.4 mg Intravenous PRN Nikolas Jiménez MD nystatin (MYCOSTATIN) 297476 UNIT/ML suspension 5 mL 5 mL Oral 4x Daily Nikolas Jiménez MD 5 mL at 09/18/24 1218 nystatin (MYCOSTATIN) powder Topical BID Nikolas Jiménez MD Given at 09/18/24 0939 ondansetron (ZOFRAN) injection 4 mg 4 mg Intravenous Q8H PRN Nikolas Jiméenz MD polyethylene glycol (GLYCOLAX) packet 17 g 17 g Oral Daily PRN Keyona Miller MD pregabalin (LYRICA) capsule 150 mg 150 mg Oral BID Keyona Miller MD 150 mg at 09/18/24 0935 senna-docusate (SENOKOT-S) 8.6-50 MG tablet 1 tablet 1 tablet Oral BID Keyona Miller MD 1 tablet at 09/18/24 0935 sertraline (ZOLOFT) tablet 50 mg 50 mg Oral Daily Keyona Miller MD 50 mg at 09/18/24 0935 traZODone (DESYREL) tablet 300 mg 300 mg Oral Nightly at bedtime Juanpablo Paresh Herman MD 300 mg at 09/17/242028 warfarin (COUMADIN) pharmacy to dose placeholder Oral See Admin Instructions Nikolas Jiménez MD warfarin (COUMADIN) tablet 7.5 mg 7.5 mg Oral Once Kelly Wilson MD Objective: PHYSICAL EXAMINATION: GENERAL: well-developed, well-nourished .No apparent distress. Alert and oriented x3. VITAL SIGNS: As above Current Vitals: Weight: Last Recorded Weight 09/18/24 0500 Weight: 101 kg (222 lb 11.2 oz) Vitals: 09/18/24 1242 BP: 115/62 Pulse: 76 Resp: 18 Temp: 97.4 ??F (36.3 ??C) SpO2: 92% REVEIW OF SYSTEMS 12 point review of systems was obtained, it was negative except for symptoms mentioned above Labs: Recent Results (from the past 24 hours) POCT glucose Collection Time: 09/17/24 4:44 PM Result Value Ref Range GLUCOSE POC 215 (H) 70 - 109 POCT glucose Collection Time: 09/17/24 9:17 PM Result Value Ref Range GLUCOSE POC 155 (H) 70 - 109 PROTIME/INR, VENOUS (PROTHROMBIN TIME) Collection Time: 09/18/24 3:29 AM Result Value Ref Range PROTIME 18.2 (H) 9.4 - 12.5 SEC INR 1.6 (H) 0.8 - 1.1 RENAL FUNCTION PANEL Collection Time: 09/18/24 3:29 AM Result Value Ref Range SODIUM S/P/B 137 136 - 145 MMOL/L POTASSIUM S/P/B 4.3 3.5 - 5.1 MMOL/L CHLORIDE S/P/B 101 97 - 115 MMOL/L CO2 33.4 (H) 21.0 - 32.0 MMOL/L GLUCOSE 91 74 - 106 MG/DL BUN 32 (H) 7 - 18 MG/DL CREATININE S/P/B 1.23 0.70 - 1.30 MG/DL CALCIUM S/P/B 8.8 8.5 - 10.1 MG/DL ALBUMIN S/P/B 2.7 (L) 3.4 - 5.0 G/DL PHOSPHORUS 3.5 2.5 - 4.9 MG/DL ANION GAP 2.6 2.0 - 10.0 MMOL/L OSMOLALITY (CALC) 290 MOSM/KG GFR ESTIMATE 63 (L) >90 ML/MIN/1.73 M2 GFR NOTES GFR REFERENCES: POCT glucose Collection Time: 09/18/24 6:04 AM Result Value Ref Range GLUCOSE POC 74 70 - 109 POCT glucose Collection Time: 09/18/24 11:09 AM Result Value Ref Range GLUCOSE POC 86 70 - 109 Recent Labs Lab 09/16/24 2135 09/17/24 0616 09/17/24 1106 09/17/24 1644 09/17/24 2117 09/18/24 0604 09/18/24 1109 GLUCOSEPOC 102 146* 135* 215* 155* 74 86 Assessment and Plan Type 2 diabetes Current use of insulin Home DM program: Glipizide 10 mg daily (unsure of dose); Jardiance 25 mg daily; Ozempic 1 mg daily A1c here 7% PCP: Dr. Megan Infante in [place] His glycemic profile was reviewed with the patient, overnight blood sugars are trending down, will decrease basal insulin, -- Decrease Lantus to 18 units at night --Continue glipizide 10 mg every morning -- Humalog 6 units AC 3 times daily along with correctional insulin -- Accu-Chek before meals and at bedtime Call parameters in place Obesity; BMI 35. MNT He will follow-up with his primary care, for diabetes management after hospital discharge. SANDRA HOLLINGSWORTH MD 09/18/2024 ROOM SUPERVISOR * Micaela Ugarte HONING MACHINE SET UP OPERATOR - 09/18/2024 11:10 AM CST PT Treatment Discharge Recommendation: OT/PT at SNF Activity Recommendation for pediatric assistant: up with assist of 1 and use of the 2ww to the commode or recliner - Could also walk to bathroom with nursing staff if he isn't too fatigued. 09/18/24 1045 Therapy Visit Ordering Provider MD Virgil Adams RN ok'd therapy session. Patient was sitting up in the recliner upon arrival and is agreeable to session. he remains very motivated and states he performed x25 reps of all of his leg exercises during the weekend. Reason for admission Pt presents with BRITTANY, hyperkalemia, and acute on chronic systolic CHF. Of notept with recent GLF 08/18 with right 7-8 rib fxs. Pt with respiratory failure and COPD exacerbation 09/03 and required intubation. Pt extubated 09/06. 09/11 pt with 11 beats of v tach. ..........PMH: afib, LV dysfunction, CAD, hypertension aortic stenosis, chronic anticoagulation, s/p aortic valve replacement, varicose veins, claudication, nstemi, pulmonary hypertension, CHF, copd, obstructive sleep apnea, asthma, hyperlipidemia, diabetes mellitus type 2, TIA, arthritis, carotid disease, rib fractures, chronic venous insufficiency...............Therapy orders: eval and treat. Verified Two Patient Identifiers Yes Patient consents to therapy Yes Acute Inpatient PT Time Calculation PT Start Time 1045 PT Stop Time 1110 PT Time Calculation (min) 25 min Precautions General Precautions Bed Alarm;Chair Alarm;Fall Risk;Supplemental oxygen Instructed on Precautions Yes;Verbalizes understanding;Needs reinforcement and education Other tele Prior Function PLOF Comments Per Eval: Pt lives with his [...] riser. Since last admission patient reports he hasbeen working with home health PT and was about to be discharged from their services secondary to good progress. Does not have 24/[address]. Pain Pain No Location just mentions his anterior thighs are fatigued after therapy session Activity Tolerance Activity Tolerance Comments He continues to improve Cognition Overall Cognitive Status WFL Arousal/Alertness Appropriate responses to stimuli Attention Span Appears intact Memory Appears intact Orientation Level Oriented X4 Following Commands Follows one step commands without difficulty Safety Judgment Good awareness of safety precautions Awareness of Errors Assistance required to identify errors made Deficits Decreased awareness of deficits Bed Mobility Other (Comment) not tested TRANSFERS Sit to Stand Min assist (He performed multiple reps working on improving his technique. He still required min assist but his balance improved when focusing on pushing himself forward toward the 2ww. This lessened the unsteadiness posteriorly that he had last session) Other (Comment) He rocks himself forward/backward to gain momentum and when focusing on pushing himself more forward, his balance improved upon firsst standing. Gait Gait Assistance Contact guard assist;Min assist;With gait belt Assistive Device 2 Wheeled walker Distance Ambulated (ft) 80 ft (x2 with chair following for safety) Other (Comment) Patient ambulates with decreased speed, decreased step length, wide base of support, and increased lateral sway. He had no loss of balance episodes this date but chair followed him for safety Balance Sitting - Static Independent Sitting - Dynamic SBA Standing - Static CGA;Support of both upper extremities Standing - Dynamic CGA;Support of both upper extremities Other (Comment) no loss of balance this session but at risk for falls due to weakness and deconditioning Exercises Standing LE Exercise He performed x10 reps of marching, calf raises, and mini squats. PT Assessment PT Assessment Patient is motivated and states he worked on his BLE exercises all weekend and increased the repetitions from 15 to 25 multiple times a day. He still requires min assist for sit<>stand transfers but the quality did improve today, which in turn, improved his balance upon first standing. He also improved his gait distance. from 22 feet x2 last session to 80 feet x2 this session.He would benefit from continued PT in a SNF Setting to improve his strength, endurance, balance, and safety awareness prior to returning home Discharge Recommendation PT Recommendation PT at correction Facility Plan PT Treatments/Interventions Gait Training;Manual Therapy;Therapeutic Exercises;Therapeutic Activities;Neuromuscular re-education;Patient/family training Progress Progressing toward goals PT Frequency 5 times/week PT - Next Appointment 09/18/24 If this is the last treatment note,it will serve as the discharge summary Yes End of Session End of Session Safety Chair alarm set/activated;Call light within reach;Nursing aware of session;Transfer status education End of Session Comment sitting up in the recliner with legs elevated, alarm activated under him, and all needs within reach Education: Primary Learners Name: Obie Sims Primary Language of learner: Bangladeshi Patient was educated on exercises transfers balance therapy plan gait safety. Education was completed one to one verbal hands-on demonstration this date. Preference of learning new concepts one to one verbal hands-on demonstration Barriers to education this date were none. Response to education this date verbalized understanding asks questions demos with verbal cues needs follow up needs assistance. ROOM SUPERVISOR * Honey Whitmore RN - 09/18/2024 10:30 AM CST 09/18/24 1030 Interdisciplinary Group Conference Team Members Present Physician;Case/Care management;Nursing Physician present for group conference Steve Patient Current Status Paient current status Inpatient Barriers to Discharge Inpatient Review Barriers to Discharge Inpatient Post-Acute Authorization Needed Post-Acute Authorization Needed follow up Medically stable. Insurance auth pending Patient expects to be discharged to Patient expects to be discharged to: Swing bed ([facility]) 1150: Per Mariel at [facility] [place], [facility] auth still pending. Patient and daughter, Bonnie lara. ROOM SUPERVISOR * Aaliyah BartonD, [facility] - 09/18/2024 10:03 AM CST Warfarin - Pharmacy Dosing Service Note Obie Sims is a 69-year-old male for which pharmacy has been consulted to dose warfarin for A.fib. Goal INR is 2-3. Warfarin Order Set Activated: Yes Warfarin Start Date: continuation from home Past Medical History: Diagnosis Date Abnormal ankle brachial index ([facility]) Acute on chronic heart failure, unspecified heart failure type ([facility]) Anxiety Aortic valve stenosis Arthritis Asthma, mild persistent ([facility]) 04/06/2021 Atrial fibrillation ([facility]) s/p PVI/[facility] 10/2015 Bilateral leg pain Carotid disease, bilateral ([facility]) CHF (congestive heart failure) ([facility]) Claudication ([facility]) COPD (chronic obstructive pulmonary disease) ([facility]) Coronary artery disease Diabetes mellitus, type II ([facility]) Edema 04/19/2018 2+ pitting History of blood transfusion Hyperlipidemia Hypertension LV dysfunction Non-pressure chronic ulcer of left calf limited to breakdown of skin ([facility]) 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 breakdown of skin ([facility]) Osteoarthritis PAD (peripheral artery disease) ([facility]) Pneumonia Restless leg syndrome S/P aortic valve replacement with bioprosthetic valve 2013 SOB (shortness of breath) Stroke ([facility]) 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 Date INR Dose Received 08/28 5.4 per [facility] paperwork - 08/29 - - 08/30 2.7 2 mg at [facility] 08/31 1.8 - 09/01 1.6 2 mg 09/02 1.9 2 mg 09/03 2.6 hold 09/04 3.7 hold 09/05 2.2 2 mg 09/06 1.7 Missed dose as was npo 09/07 1.4 2 mg 09/08 1.8 1 mg 09/09 1.5 2 mg 09/10 1.3 2 mg 09/11 1.3 2 mg 09/12 1.4 2.5 mg 09/13 1.2 4 mg 09/14 1.3 4 mg 09/15 1.4 6 mg 09/16 1.4 6 mg 09/17 1.5 6 mg 09/18 1.6 Drug interactions: Potential to increase INR: Potential to decrease INR: - Potential to increase the risk of bleeding: aspirin, sertraline Warfarin Sensitivity: high, based on the following risk factors: albumin < or = to 2.5, concomitant antiplatelet therapy, thrombocytopenia, age 66-79, 1 moderate drug interaction, and diagnosis ofheart failure. Hgb/Hct today are stable INR today subtherapeutic INR increasing slightly today, will increase dose again The plan is to give 7.5 mg tonight. Will recheck an INR in the morning to assist with subsequent dosing. Pharmacy will continue to monitor labs and notes daily, adjusting the dose as clinically appropriate. Thank you for the consult. Pharmacy to dose per Dr. Neftali Presley, PharmD, [facility] Phone number: [phone] 09/18/2024 10:03 AM ROOM SUPERVISOR * Ludy Morrell MD - 09/18/2024 7:53 AM CST [facility] Nephrology Progress Note Obie Sims is a 69-year-old male patient. Brittany management HPI 69-year-old gentleman with past medical history significant for CKD stage III, atrial fibrillation,heart failure with reduced ejection fraction, coronary disease, aortic stenosis status post bioprosthetic aortic valve placement, pulmonary hypertension, COPD, obstructive sleep apnea, dyslipidemia, diabetes mellitus type 2, stroke, anxiety, hypertension, restless leg syndrome who presented due to BRITTANY and hyperkalemia. Patient had a fall on 08/18/2024, initially declined treatment but ultimately presented to outside ED 2 days ago with rib pain and knee pain. He also reported shortness of breath and lower extremity swelling. His creatinine was found to be 2 with potassium 5.9. Patient transferred to [facility] for BRITTANY and hyperkalemia management. Nephrology consulted to manage kidney diseas Subjective Reports that he is doing fine. Dyspnea improved. No chest pain. No urinary complaints. Good appetite. Blood pressure controlled Review Of Systems 12 point negative Current Facility-Administered Medications Medication Dose Route Frequency Provider Last Rate Last Admin acetaminophen (TYLENOL) tablet 650 mg 650 mg Oral Q4H PRN Keyona Miller MD acetylcysteine 10 % (MUCOMYST) inhalation solution 200 mg 200 mg Nebulization 2 times daily Juanpablo Herman MD 200 mg at 09/17/242033 albuterol (PROVENTIL) (2.5 MG/3ML) 0.083% nebulizer solution 2.5 mg 2.5 mg Nebulization Q2H PRN Kyeona Miller MD 2.5 mg at 09/04/24 0724 allopurinol (ZYLOPRIM) tablet 200 mg 200 mg Oral Daily Keyona Miller MD 200 mg at 09/17/24 0827 aspirin chewable tablet 81 mg 81 mg Oral Daily Keyona Miller MD 81 mg at 09/17/24 0828 atorvastatin (LIPITOR) tablet 80 mg 80 mg Oral Nightly at bedtime Keyona Miller MD 80mg at 09/17/242028 bumetanide (BUMEX) tablet 2 mg 2 mg Oral Daily Juanpablo Herman MD 2 mg at 09/17/24 0833 clotrimazole-betamethasone (LOTRISONE) cream Topical Q12H Nikolas Jiménez MD Given at 09/17/24 0828 dextrose (GLUTOSE) 40 % oral gel 37.5-75 g 15-30 g of dextrose Oral PRN Keyona Miller MD dextrose 10 % bolus infusion 125-250 mL 125-250 mL Intravenous PRN Keyona Miller MD Stopped at 09/06/24 1640 fentaNYL (SUBLIMAZE) injection 25 mcg 25 mcg Intravenous Q10 Min PRN Keyona Miller MD folic acid (FOLVITE) tablet 1 mg 1 mg Oral Daily Keyona Miller MD 1 mg at 09/17/24 0828 glipiZIDE (GLUCOTROL) tablet 10 mg 10 mg Oral QAM COLE Barrios MD 10 mg at 09/17/24 1524 glucagon injection 1 mg 1 mg Intramuscular Once PRN Keyona Miller MD HYDROcodone-acetaminophen (NORCO) 5-325 MG tablet 1 tablet 1 tablet Oral Q4H PRN Keyona Miller MD 1 tablet at 09/17/24 2037 HYDROmorphone (DILAUDID) injection 0.2 mg 0.2 mg Intravenous Q2H PRN Nikolas Jiménez MD 0.2 mg at 09/04/24 1620 hydrOXYzine (ATARAX) tablet 50 mg 50 mg Per NG Tube TID PRN Keyona Miller MD insulin glargine (LANTUS) injection 22 Units 22 Units Subcutaneous Nightly at bedtime Isma Barrios MD 22 Units at 09/17/24 2129 insulin lispro (HUMALOG/ADMELOG) injection 0-3 Units 0-3 Units Subcutaneous TID COLE Barrios MD 2 Units at 09/17/24 1645 insulin lispro (HUMALOG/ADMELOG) injection 6 Units 6 Units Subcutaneous TID COLE Barrios MD 6Units at 09/17/24 1645 ipratropium-albuterol (DUONEB) 0.5-2.5 (3) MG/3ML nebulizer solution 3 mL 3 mL Nebulization Q4H Juanpablo Herman MD 3 mL at 09/18/24 0411 metoprolol succinate ER (TOPROL-XL) 24 hr tablet 12.5 mg 12.5 mg Oral Daily Juanpablo Herman MD 12.5 mg at 09/17/24 0827 naLOXone (NARCAN) injection 0.4 mg 0.4 mg Intravenous PRN Nikolas Jiménez MD nystatin (MYCOSTATIN) 481355 UNIT/ML suspension 5 mL 5 mL Oral 4x Daily Nikolas Jiménez MD 5 mL at 01/26/25 2030 nystatin (MYCOSTATIN) powder Topical BID Nikolas Jiménez MD Given at 09/17/242038 ondansetron (ZOFRAN) injection 4 mg 4 mg Intravenous Q8H PRN Nikolas Jiménez MD polyethylene glycol (GLYCOLAX) packet 17 g 17 g Oral Daily PRN Keyona Miller MD pregabalin (LYRICA) capsule 150 mg 150 mg Oral BID Keyona Miller MD 150 mg at 09/17/242029 senna-docusate (SENOKOT-S) 8.6-50 MG tablet 1 tablet 1 tablet Oral BID Keyona Miller MD 1 tablet at 09/17/242028 sertraline (ZOLOFT) tablet 50 mg 50 mg Oral Daily Keyona Miller MD 50 mg at 09/17/24826 traZODone (DESYREL) tablet 300 mg 300 mg Oral Nightly at bedtime Juanpablo Herman MD 300 mg at 09/17/242028 warfarin (COUMADIN) pharmacy to dose placeholder Oral See Admin Instructions Nikolas Jiménez MD Review of patient's allergies indicates: No Known Allergies Principal Problem: CHF exacerbation ([facility]) SNOMED CT(R): ACUTE EXACERBATION OF CHRONIC CONGESTIVE HEART FAILURE Filed Vitals: 09/17/24 2344 09/17/24 2344 09/18/24 0313 09/18/24 0500 BP: 109/51 109/51 103/66 Pulse: 61 Resp: 18 22 Temp: 94.3 ??F (34.6 ??C) 97.7 ??F (36.5 ??C) TempSrc: Axillary Oral SpO2: 100% 100% 99% Weight: 101 kg (222 lb 11.2 oz) Height: Last 3 Recorded Weights 09/14/24 0500 09/14/24 0900 09/18/24 0500 Weight: 97.5 kg (214 lb 15.2 oz) 100.7 kg (222 lb 0.1 oz) 101 kg (222 lb 11.2 oz) Intake/Output Summary (Last 24 hours) at 09/18/2024 0753 Last data filed at 09/18/2024 0100 Gross per 24 hour Intake 1500 ml Output 1100 ml Net 400 ml Physical Exam: -GENERAL: No acute distress, breathing comfortably on room air. -EYES: Extraocular movements intact -ENT: Neck supple, Septum is midline. -LUNG: Clear to auscultation bilaterally, No wheezes, No crackles -CVS: Regular rate rhythm, S1 and S2 normal, No murmurs, -ABDOMEN: Soft, nondistended, Nontender, Bowel sounds observed -EXT: no lower Ext edema. -NEURO: Alert, awake, oriented x3, No gross neuro deficit -SKIN: Skin color, texture, turgor normal. No rashes or lesions LABs Recent Labs Lab 09/12/24 03109/13/24 0458 09/14/24 0348 09/15/24 0504 09/16/24 0421 09/17/24 0343 09/18/24 0329 NA 137 -- 137 139 -- -- 137 K 4.3 -- 4.1 4.0 -- -- 4.3 CL 102 -- 101 104 -- -- 101 CO2 31.9 -- 31.4 32.9* -- -- 33.4* AGAP 3.1 -- 4.6 2.1 -- -- 2.6 BUN 39* -- 46* 44* -- -- 32* CR 1.37* -- 1.39* 1.24 -- -- 1.23 GLU 304* -- 228* 55* -- -- 91 CA 8.6 -- 8.6 8.5 -- -- 8.8 MAGNESIUM 2.7* 2.9* 2.7* 2.4 2.4 2.3 -- PHOS 2.9 3.1 2.4* 2.9 3.4 3.3 3.5 Recent Labs Lab 09/12/24 03109/14/24 0348 09/15/24 0504 WBC 13.55* 14.68* 11.65* RBC 3.75* 3.77* 3.90* HGB 10.8* 10.9* 11.2* HCT 35.6* 35.8* 37.1 MCV 94.9 95.0 95.1 MCH 28.8 28.9 28.7 MCHC 30.3* 30.4* 30.2* PLT 129* 134* 133* RDW 15.4* 15.3* 15.6* MPV 13.9* 14.0* 13.9* Assessment/Plan: 69-year-old gentleman with past medical history significant for CKD stage III, atrial fibrillation,heart failure with reduced ejection fraction, coronary disease, aortic stenosis status post bioprosthetic aortic valve placement, pulmonary hypertension, COPD, obstructive sleep apnea, dyslipidemia, diabetes mellitus type 2, stroke, anxiety, hypertension, restless leg syndrome who presented due to BRITTANY and hyperkalemia. Patient had a fall on 08/18/2024, initially declined treatment but ultimately presented to outside ED 2 days ago with rib pain and knee pain. He also reported shortness of breath and lower extremity swelling. His creatinine was found to be 2 with potassium 5.9. Patient transferred to [facility] for BRITTANY and hyperkalemia management. BRITTANY on CKD stage III -Baseline creatinine 1.3-1.5. Patient also follows with Dr. Beltran -At outside hospital creatinine was 2.0, patient received fluids and creatinine increased to 2.8. This is likely related to hemodynamics/fluid overload. -Renal ultrasound showed suboptimal visualization of right kidney. No right sided hydronephrosis. No increase echogenicity. Right kidney 11.6 cm. Left kidney was not seen. -CPK normal, urinalysis reviewed. BRITTANY serology negative -Initial chest x-ray showed pulmonary vascular congestion and interstitial edema -s/p aggressive IV diuresis. Net -20 liter uf and weight down 22 kilos -Creatinine stable at 1.2 with good urine output -Bumex oral 2 mg once daily -Strict I's/O, avoid nephrotoxins -Daily renal panel 2. HTN. -Blood pressure stable -Continue to avoid STEVIE/ARB 3. Anemia of chronic disease. Hemoglobin stable 4. Electrolytes. -stable. 5. Renal osteodystrophy. Calcium and phosphorus levels are okay 6. Disposition- stable . Follow-up with Dr. Beltran in 1 to 2 weeks after discharge with renal panel Thank you for allowing me to participate in the care of this patient. We will continue to follow this patient with you. Please contact us with further questions. LUDY MORRELL MD 09/18/2024 ROOM SUPERVISOR * Yarelis Lawrence RN - 09/18/2024 7:26 AM CSTSummary: restraints Removed 09/06 ROOM SUPERVISOR * Pito Kumar RD - 09/17/2024 1:07 PM CST CLINICAL DIETITIAN NUTRITION EDUCATION Reason for education: RD consulted by physician to educate patient regarding diabetic diet. Individual(s) educated: patient and daughter Therapeutic diet: Controlled Carbohydrate diet (60g/meal) Topics discussed: diet rationale, foods recommended, and portion control Information provided (remote RDN notified on-site RDN to print & deliver handouts to patient today as able): AND Handout Carbohydrate Counting For People With Diabetes AND Handout Using Nutrition Labels: Carbohydrate AND Handout The Plate Method Teaching method: verbal Education readiness: not ready Barriers to learning: Patient passed phone on to daughter mid-conversation. Said daughter prepares patient's meals and would be the one to talk to. Daughter reported they have a good understanding ofwhat diet restrictions patient needs to adhere to in regards to controlling diabetes. Requested a handout to take home; daughter feels family going over information with patient would help patient better understand and adhere to diet restrictions. Response to education: verbalizes understanding of topics discussed prior to phone being passed to family. Comprehension: fair Expected adherence: fair Patient goals met upon completion of nutrition education: Patient understood what carbohydrates are (mentioned potatoes, went over other examples like bread and cereal as well as fruit, dairy products). Discussed how carbohydrates are necessary for diet andgeneral function throughout the day, so encouraged patient to continue to include in diet. Will just need to manage portion sizes by reading labels, carbohydrate counting. Patient seemed to understand these points. Follow up education needed: No; unless family has questions RD contact information provided: Yes; on diet education handouts Other comments: Please let RDN staff know if any questions arise from patient and/or family. Patient/family may be good candidates for outpatient nutrition services and/or classes if DM continues to be uncontrolled in the long-term. PITO KUMAR RD, LDN ROOM SUPERVISOR * Kelly Wilson MD - 09/17/2024 12:11 PM CST Images from the original note were not included. [employer] Hospitalist Progress note Chief Complain: Respiratory failure ASSESSMENT /PLAN: Obie Sims is an 69-year-old male with a past medical history of CKD stage III, atrial fibrillation on warfarin, heart failure with reduced ejection fraction, coronary artery disease, aortic stenosis status post bioprosthetic aortic valve replacement, pulmonary hypertension, COPD/asthma, obstructive sleep apnea, hyperlipidemia, diabetes mellitus type 2, CVA, carotid disease, anxiety/depression, hypertension, PAD, and RLS. He was transferred to [facility] with BRITTANY and hyperkalemia. During this hospitalization patient developed worsening hypoxic respiratory failure requiring intubation, transferred to ICU. In ICU he was treated with IV Lasix drip and also treated for possible aspiration pneumonia. Now extubated, transferred out of ICU ON 09/07/2023 Acute on chronic heart failure with reduced ejection fraction Anasarca Pulmonary hypertension Valvular heart disease Acute respiratory failure with hypoxia/hypercarbia -Echocardiogram from February 2024 reveals an ejection fraction of 40 to 45% with bioprosthetic aortic valve, no central or periprosthetic aortic regurgitation, mild mitral regurgitation, and mild tricuspid regurgitation. Worsening hypoxic respiratory failure requiring ICU admission, intubation -Strict intake and output with daily weights. Monitor renal functions -Holding Entresto in light of BRITTANY. Will resume blex-xwuuysrd-lmrst dose -[facility] nephrology consulted. Nephrology dosing diuretics as and when needed Cardiology following, appreciate recommendations- Continue BiPAP at night for hypercapnic respiratory failure. Patient will need Arranged at rehab Patient will need a BiPAP arrangement at facility, pulmonary saw. Appreciate assistance Creatinine improving monitor Monitor respiratory status closely Pneumonia-HCAP versus aspiration Completed antibiotic course. Treated with Zosyn Encourage incentive spirometry Supplemental oxygen as needed BRITTANY on CKD stage III improving Hyperkalemia, resolved Hypernatremia Sodium improving Monitor renal functions, nephrology following Renal functions improving Will discuss with nephrology, started diuretics as tolerated Ground-level fall Rib fractures Generalized weakness -CT of the chest shows acute fractures of the seventh and eighth right ribs. -PT/OT consult. -Pain control. -Incentive spirometer. Concern for pneumonia probably HCAP versus aspiration Completed antibiotic course hematuria -UA negative. -Likely due to traumatic Oneill insertion and/or trauma to Oneill in setting of supratherapeutic INR.Initial UA with no RBCs. Resolved, monitor Atrial fibrillation Supratherapeutic INR, resolved Nonsustained ventricular tachycardia -INR was 5.4 on presentation. -Continue beta-kim for rate control. -Pharmacy consulted for Coumadin dosing. Monitor INR -Monitor telemetry. nonsustained ventricular tachycardia Continue small dose of beta-kim Continue current regimen, cardiology following. Appreciate cardiology Diabetes mellitus type 2 Labile blood sugar -Went up to greater than 500 couple days ago, had an episode of glycemia with blood sugars down to 30s this morning -Will consult [facility] endocrinology for further assistance. -Continue Jardiance. Continue sliding scale insulin and Lantus as indicated Coronary artery disease Hypertension Hyperlipidemia -Heart catheterization from 2020 revealed a 60% proximal LAD stenosis, 50% ostial RCA stenosis, bioprosthetic aortic valve without aortic regurgitation, and severe pulmonary hypertension. Will add small dose of beta-blockers, continue statins -Monitor telemetry. COPD/asthma overlap syndrome Hypercarbic respiratory failure-rate COPD exacerbation Continue bronchodilators. prednisone 40 mg daily-total 5 days Completed antibiotic therapy CVA Carotid disease PAD -Continue aspirin and statin. Body mass index is 35.83 kg/m??. DVT Prophylaxis:on warfarin Code Status: DNR Not Medically Ready/Awaiting Clinical Improvement Therapy recommending rehab placement case management involved discharge planning awaiting insuranceapproval SUBJECTIVE Patient seen and examined. Alert and oriented to time, place and person. Does not report any acute concerns. Using oxygen via nasal cannula OBJECTIVE Blood pressure 138/76, pulse 65, temperature 96.7 ??F (35.9 ??C), temperature source Axillary, resp. rate 19, height 1.676 m (5' 6 ), weight 100.7 kg (222 lb 0.1 oz), SpO2 96%. Wt Readings from Last 3 Encounters: 09/14/24 100.7 kg (222 lb 0.1 oz) 08/24/24 106.6 kg (235 lb) 08/03/24 103 kg (227 lb) Review of Systems All other systems reviewed and are negative. Physical Exam Constitutional: Appearance: He is well-developed. HENT: Head: Normocephalic and atraumatic. Eyes: Pupils: Pupils are equal, round, and reactive to light. Cardiovascular: Rate and Rhythm: Normal rate and regular rhythm. Heart sounds: No murmur heard. No friction rub. Pulmonary: Breath sounds: No wheezing or rales. Chest: Chest wall: No tenderness. Abdominal: General: Bowel sounds are normal. Palpations: Abdomen is soft. Tenderness: There is no abdominal tenderness. There is no guarding or rebound. Musculoskeletal: General: Normal range of motion. Cervical back: Normal range of motion and neck supple. Skin: General: Skin is warm and dry. Findings: No rash. Neurological: Mental Status: He is alert and oriented to person, place, and time. LABS: Recent Labs 09/15/24 0504 WBC 11.65* HGB 11.2* HCT 37.1 MCV 95.1 PLT 133* RBC 3.90* Recent Labs 09/15/24 0504 CO2 32.9* CL 104 GLU 55* K 4.0 NA 139 BUN 44* Intake/Output Summary (Last 24 hours) at 09/17/2024 1211 Last data filed at 09/17/2024 1107 Gross per 24 hour Intake 1140 ml Output 1900 ml Net -760 ml Microbiology Results (last 14 days) Procedure Component Value Units Date/Time MRSA PCR nares Screening [[id number]] Collected: 09/07/24 0848 Order Status: Sent Lab Status: No result Specimen: NASAL CULTURE, RESPIRATORY W/ GRAM STAIN [[id number]] Collected: 09/05/24 0740 Order Status: Completed Lab Status: Preliminary result Updated: 09/08/24 0640 Specimen: TRACHEAL ASPIRATE SPEC DESCRIPTION TRACHEAL ASPIRATE SPECIAL REQUESTS NO SPECIAL REQUEST GRAM STAIN RESULT <10 EPITHELIAL CELLS PER LPF GRAM STAIN RESULT >25 NEUTROPHILS PER LPF GRAM STAIN RESULT NO ORGANISMS SEEN CULTURE RESULT NO GROWTH 3 DAYS Gastric PH [[id number]] Order Status: No result Lab Status: No result Specimen: GASTRIC FLUID CULTURE, BACTERIA BLOOD [[id number]] Collected: 09/03/24 1223 Order Status: Completed Lab Status: Preliminary result Updated: 09/07/24 1927 Specimen: BLOOD SPEC DESCRIPTION BLOOD SPECIAL REQUESTS NO SPECIAL REQUEST CULTURE RESULT NO GROWTH 4 DAYS CULTURE, URINE [[id number]] Collected: 09/01/24 1110 Order Status: Completed Lab Status: Final result Updated: 09/03/24 0835 Specimen: URINE, CLEAN CATCH SPEC DESCRIPTION URINE CLEAN CATCH SPECIAL REQUESTS NO SPECIAL REQUEST CULTURE RESULT NO GROWTH (< OR = 1,000 CFU/ML) CULTURE, BACTERIA BLOOD X2 [[id number]] Collected: 08/31/24 1034 Order Status: Completed Lab Status: Final result Updated: 09/06/24 0011 Specimen: BLOOD SPEC DESCRIPTION BLOOD SPECIAL REQUESTS NO SPECIAL REQUEST CULTURE RESULT NO GROWTH 5 DAYS Radiology MEDICATIONS Scheduled medications acetylcysteine 10 % 200 mg Nebulization 2 times daily allopurinol 200 mg Oral Daily aspirin 81 mg Oral Daily atorvastatin 80 mg Oral Nightly at bedtime bumetanide 2 mg Oral Daily clotrimazole-betamethasone Topical Q12H folic acid 1 mg Oral Daily insulin glargine 22 Units Subcutaneous Nightly at bedtime insulin lispro 0-3 Units Subcutaneous TID AC insulin lispro 6 Units Subcutaneous TID AC ipratropium-albuterol 3 mL Nebulization Q4H metoprolol succinate ER 12.5 mg Oral Daily nystatin 5 mL Oral 4x Daily nystatin Topical BID pregabalin 150 mg Oral BID senna-docusate 1 tablet Oral BID sertraline 50 mg Oral Daily traZODone 300 mg Oral Nightly at bedtime warfarin (COUMADIN) pharmacy to dose Oral See Admin Instructions warfarin 6 mg Oral Once Infusion PRN acetaminophen, albuterol, glucose, dextrose 10 % bolus, [DISCONTINUED] fentaNYL AND [DISCONTINUED] fentaNYL AND fentaNYL, glucagon, HYDROcodone- acetaminophen, HYDROmorphone, hydrOXYzine, naLOXone, ondansetron, polyethylene glycol Kelly Wilson MD 12:11 PM 09/17/2024 ROOM SUPERVISOR * Isma Barrios MD - 09/17/2024 11:15 AM CST Endocrinology Progress Note Reason For Follow-up: Type 2 diabetes mellitus Brief summary: Mr. Obie Sims is a 69 year old male who was admitted 09/07/24 with CHF exacerbation. Patient has a history of type 2 DM. At home patient was taking glipizide 5 mg BID, Jardiance 25 mgdaily, and Ozempic 1 mg weekly. Patient has not required insulin in the outpatient setting. Upon admission here patient's A1c was 7.0%. Patient's glycemic profile while inpatient has been very labilewith blood glucose levels as high as the 500s and as low as the 50s. Patient was on prednisone until 09/12/24 when he completed his course. Patient was given 40 mg of prednisone from 09/09-09/13/24. The evening of 09/12/24 at 2125 patient's blood glucose went up to above 500. He was given 12 units of insulin. At 0633 on 09/13/24 patient's blood glucose was 188. Interval History: Mr. Sims reports feeling reasonably well. Denies nausea or vomiting. I reviewedhis glycemic profile with him today in detail. Glycemic profile has improved. Reports eating well. He is hopeful for discharge to a rehabilitation center soon. Medications Current Facility-Administered Medications Medication Dose Route Frequency Provider Last Rate Last Admin acetaminophen (TYLENOL) tablet 650 mg 650 mg Oral Q4H PRN Keyona Miller MD acetylcysteine 10 % (MUCOMYST) inhalation solution 200 mg 200 mg Nebulization 2 times daily Juanpablo Herman MD 200 mg at 09/17/24 0823 albuterol (PROVENTIL) (2.5 MG/3ML) 0.083% nebulizer solution 2.5 mg 2.5 mg Nebulization Q2H PRN Keyona Miller MD 2.5 mg at 09/04/24 0724 allopurinol (ZYLOPRIM) tablet 200 mg 200 mg Oral Daily Keyona Miller MD 200 mg at 09/17/24 0827 aspirin chewable tablet 81 mg 81 mg Oral Daily Keyona Miller MD 81 mg at 09/17/24 0828 atorvastatin (LIPITOR) tablet 80 mg 80 mg Oral Nightly at bedtime Keyona Miller MD 80mg at 09/16/24 2040 bumetanide (BUMEX) tablet 2 mg 2 mg Oral Daily Juanpablo Paresh Herman MD 2 mg at 09/17/24 0833 clotrimazole-betamethasone (LOTRISONE) cream Topical Q12H Nikolas Jiménez MD Given at 09/17/24 0828 dextrose (GLUTOSE) 40 % oral gel 37.5-75 g 15-30 g of dextrose Oral PRN Keyona Miller MD dextrose 10 % bolus infusion 125-250 mL 125-250 mL Intravenous PRN Keyona Miller MD Stopped at 09/06/24 1640 fentaNYL (SUBLIMAZE) injection 25 mcg 25 mcg Intravenous Q10 Min PRN Keyona Miller MD folic acid (FOLVITE) tablet 1 mg 1 mg Oral Daily Keyona Miller MD 1 mg at 09/17/24 0828 glucagon injection 1 mg 1 mg Intramuscular Once PRN Keyona Miller MD HYDROcodone-acetaminophen (NORCO) 5-325 MG tablet 1 tablet 1 tablet Oral Q4H PRN Keyona Miller MD 1 tablet at 09/16/24 2048 HYDROmorphone (DILAUDID) injection 0.2 mg 0.2 mg Intravenous Q2H PRN Nikolas Jiménez MD 0.2 mg at 09/04/24 1620 hydrOXYzine (ATARAX) tablet 50 mg 50 mg Per NG Tube TID PRN Keyona Miller MD insulin glargine (LANTUS) injection 24 Units 24 Units Subcutaneous Nightly at bedtime Isma Barrios MD insulin lispro (HUMALOG/ADMELOG) injection 0-3 Units 0-3 Units Subcutaneous TID AC Isma Barrios MD 1 Units at 09/16/24 1609 insulin lispro (HUMALOG/ADMELOG) injection 6 Units 6 Units Subcutaneous TID COLE Barrios MD ipratropium-albuterol (DUONEB) 0.5-2.5 (3) MG/3ML nebulizer solution 3 mL 3 mL Nebulization Q4H Juanpablo Herman MD 3 mL at 09/17/24 08 metoprolol succinate ER (TOPROL-XL) 24 hr tablet 12.5 mg 12.5 mg Oral Daily Juanpablo Herman MD 12.5 mg at 09/17/24 08 naLOXone (NARCAN) injection 0.4 mg 0.4 mg Intravenous PRN Nikolas Jiménez MD nystatin (MYCOSTATIN) 895196 UNIT/ML suspension 5 mL 5 mL Oral 4x Daily Nikolas Jiménez MD 5 mL at 09/17/24 08 nystatin (MYCOSTATIN) powder Topical BID Nikolas Jiménez MD Given at 09/17/24 08 ondansetron (ZOFRAN) injection 4 mg 4 mg Intravenous Q8H PRN Nikolas Jiménez MD polyethylene glycol (GLYCOLAX) packet 17 g 17 g Oral Daily PRN Keyona Miller MD pregabalin (LYRICA) capsule 150 mg 150 mg Oral BID Keyona Miller MD 150 mg at 09/17/24 08 senna-docusate (SENOKOT-S) 8.6-50 MG tablet 1 tablet 1 tablet Oral BID Keyona Miller MD 1 tablet at 09/17/24 0828 sertraline (ZOLOFT) tablet 50 mg 50 mg Oral Daily Keyona Miller MD 50 mg at 09/17/24 08 traZODone (DESYREL) tablet 300 mg 300 mg Oral Nightly at bedtime Juanpablo Herman MD 300 mg at 09/16/242039 warfarin (COUMADIN) pharmacy to dose placeholder Oral See Admin Instructions Nikolas Jiménez MD warfarin (COUMADIN) tablet 6 mg 6 mg Oral Once Kelly Wilson MD Review of patient's allergies indicates: No Known Allergies Review of Systems Respiratory: Positive for shortness of breath. Less shortness of breath as compared to hospital presentation. Cardiovascular: Positive for leg swelling. Gastrointestinal: Negative. Endocrine: Glycemic profile reviewed with the patient. Skin: Denies foot ulcers. Vitals: 09/17/24 0831 BP: 138/76 Pulse: 65 Resp: 19 Temp: 96.7 ??F (35.9 ??C) SpO2: 96% Physical Exam Constitutional: Comments: Appears comfortable sitting up in chair. BMI greater than 30. HENT: Head: Normocephalic. Mouth/Throat: Mouth: Mucous membranes are moist. Pharynx: Oropharynx is clear. Eyes: Conjunctiva/sclera: Conjunctivae normal. Pupils: Pupils are equal, round, and reactive to light. Cardiovascular: Rate and Rhythm: Normal rate and regular rhythm. Comments: Right DP pulse palpable. Left DP pulse not palpable. No significant lower extremity edema. Pulmonary: Comments: Lung marroquin diminished throughout with bibasilar crackles. Respiratory effort unlabored at rest. Abdominal: General: Bowel sounds are normal. Palpations: Abdomen is soft. Skin: General: Skin is warm and dry. Comments: No open skin lesions of the feet. Skin of the lower legs and feet is atrophic in appearance. Neurological: General: No focal deficit present. Mental Status: He is alert and oriented to person, place, and time. Psychiatric: Mood and Affect: Mood normal. Behavior: Behavior normal. Recent Labs Lab 09/15/24 1646 09/15/24 2122 09/16/24 0635 09/16/24 1053 09/16/24 1546 09/16/24 2135 09/17/24 0616 GLUCOSEPOC 264* 178* 79 134* 165* 102 146* Assessment and Recommendations: Home DM program: Glipizide 10 mg daily (unsure of dose); Jardiance 25 mg daily; Ozempic 1 mg daily A1c here 7% PCP: Dr. Megan Infante in [place] DM type 2: Previously significant exacerbation in hyperglycemia due to corticosteroid therapy. Lantus will be increased slightly to 22 units each night at bedtime. Humalog will be changed to 6 units at meals in addition to prandial correction. Begin glipizide 10 mg daily September 17, 2024. A significant degree of his insulin resistance has gone away given termination of systemic corticosteroid therapy. Medical nutrition therapy will take place. Consistent carbohydrates for any oral intake. Call parameters have been placed for the patient's glucose values. We will continue to follow while inpatient. He will follow-up in the outpatient setting for his DM management with his PCP. Dr. Sandra Hollingsworth covers [place] endocrine service beginning at 8AM on 09/18/2024. Thank you. CHF exacerbation: Clinically improved. BMI 35: MNT will take place. COPD exacerbation: Prednisone completed 09/13/2024. BRITTANY: Resolved. Creatinine 1.24 mg/dL on 09/15/2024. Disposition: Upon discharge Mr. Sims desires to follow with his primary care physician, Dr. Megan Infante, in [place] for his diabetes management. He has done a very good job with his outpatient diabetes management based on his A1c value. ISMA BARRIOS MD ROOM SUPERVISOR * JordynJAKE Harmtan - 09/17/2024 8:59 AM CST OT Treatment Discharge Recommendation: OT/PT at SNF Activity Recommendation for pediatric assistant: up with 1, gait belt, 2ww. Chair for all meals. Ambulate to restroom with staff. Ambulate room distances with staff to prevent deconditioning during hospital admission. 09/17/24 0832 Therapy Visit Reason for admission Pt presents with BRITTANY, hyperkalemia, and acute on chronic systolic CHF. Of notept with recent GLF 08/18 with right 7-8 rib fxs. Pt with respiratory failure and COPD exacerbation 09/03 and required intubation. Pt extubated 09/06. 09/11 pt with 11 beats of v tach. ..........PMH: afib, LV dysfunction, CAD, hypertension aortic stenosis, chronic anticoagulation, s/p aortic valve replacement, varicose veins, claudication, nstemi, pulmonary hypertension, CHF, copd, obstructive sleep apnea, asthma, hyperlipidemia, diabetes mellitus type 2, TIA, arthritis, carotid disease, rib fractures, chronic venous insufficiency...............Therapy orders: eval and treat. Ordering Provider MD Herman Verified Two Patient Identifiers Yes Patient consents to therapy Yes Acute Inpatient OT Time Calculation OT Start Time Precautions General Precautions Bed Alarm;Chair Alarm;Fall Risk;Supplemental oxygen Instructed on Precautions Yes;Verbalizes understanding;Needs reinforcement and education Other telemetry, purewick Prior Function PLOF Comments Per Eval: Pt lives with his [...] riser. Since last admission patient reports he hasbeen working with home health PT and was about to be discharged from their services secondary to good progress. Does not have 15/[address] Subjective Subjective RN ok'd therapy session at this time and pt agreeable to participation. Pt seen in room 516 and gait belt used during session for transfers, mobility. Pt seated in chair upon arrival (alarm not on) and departure with alarm in place and activated. Pain Pain No Activity Tolerance Activity Tolerance Comments Pt tolerance continues to slowly improve. Cognition Overall Cognitive Status WFL Orientation Level Oriented X4 Following Commands Follows one step commands without difficulty Deficits Decreased awareness of deficits ADL Grooming Assistance Stand by;Sitting in chair Grooming Deficit Wash/dry hands;Wash/dry face Grooming Comment Pt was able to complete simple grooming tasks seated in chair following set up. LE Dressing Assistance Maximal;Sitting in chair LE Dressing Deficit Don/doff R sock;Don/doff L sock Toileting Assistance Moderate Toileting Deficit Perineal hygiene Toileting Comment Pt continues to report difficulty with task and that at home he had just started using a toilet aid. Pt attempted task, but required mod A for thoroughness following BM. Bed Mobility Other (Comment) in chair upon arrival and departure Functional Transfers Sit to Stand Min assist (continues to require cues to scoot feet back underneath of him.) Toilet Transfers Grab bars;Min assist Functional Mobility Pt performed functional mobility in room/restroom and out into rodríguez (right outside doorway) with use of 2ww and CGA mocking household distances. No overt LOB noted, but generally unsteady and fatigues quickly. Other (Comment) Of note, pt reported he utilizes a lift chair at home, but only uses the lift a little. Balance Sitting - Static Independent Sitting - Dynamic SBA Standing - Static CGA;Support of both upper extremities Standing - Dynamic CGA;Support of both upper extremities Other (Comment) at risk for falls due to BLE weakness, quick to fatigue, and decreased insight intohis deficits. OT Assessment OT Assessment Pt making slow progress toward OT goals at this time. Pt improved his distances/tolerance as well as toileting tasks. Pt conitnues to be limited by weakness, fatigue, and deconditioning. Pt would continue to benefit from skilled OT in the acute setting and then SNF at d/c to improve transfers, mobility, activity tolerance,and ADL independence to maximize performance and ensure a safe d/c plan. Discharge Recommendation OT Recommendation OT at correction facility Plan Progress Slow progress, decreased activity tolerance OT - Next Appointment 09/17/24 If this is the last treatment note, it will serve as the discharge summary Yes End of Session End of Session Safety Chair alarm set/activated;Call light within reach;Nursing aware of session Education: Primary Learners Name: Obie Sims Primary Language of learner: Bangladeshi Patient was educated on transfers ADLs balance bed mobility therapy plan safety. Education was completed one to one this date. Preference of learning new concepts one to one Barriers to education this date were fatigue. Response to education this date needs follow up needs assistance. ROOM SUPERVISOR ROOM SUPERVISOR * Ludy Morrell MD - 09/17/2024 8:31 AM CST [facility] Nephrology Progress Note Obie Sims is a 69-year-old male patient. Brittany management HPI 69-year-old gentleman with past medical history significant for CKD stage III, atrial fibrillation,heart failure with reduced ejection fraction, coronary disease, aortic stenosis status post bioprosthetic aortic valve placement, pulmonary hypertension, COPD, obstructive sleep apnea, dyslipidemia, diabetes mellitus type 2, stroke, anxiety, hypertension, restless leg syndrome who presented due to BRITTANY and hyperkalemia. Patient had a fall on 08/18/2024, initially declined treatment but ultimately presented to outside ED 2 days ago with rib pain and knee pain. He also reported shortness of breath and lower extremity swelling. His creatinine was found to be 2 with potassium 5.9. Patient transferred to [facility] for BRITTANY and hyperkalemia management. Nephrology consulted to manage kidney diseas Subjective Reports that he is doing fine. Dyspnea improved. No chest pain. No urinary complaints. Good appetite. Blood pressure controlled Review Of Systems 12 point negative Current Facility-Administered Medications Medication Dose Route Frequency Provider Last Rate Last Admin acetaminophen (TYLENOL) tablet 650 mg 650 mg Oral Q4H PRN Keyona Miller MD acetylcysteine 10 % (MUCOMYST) inhalation solution 200 mg 200 mg Nebulization 2 times daily Juanpablo Herman MD 200 mg at 09/17/24 0823 albuterol (PROVENTIL) (2.5 MG/3ML) 0.083% nebulizer solution 2.5 mg 2.5 mg Nebulization Q2H PRN Keyona Miller MD 2.5 mg at 09/04/24 0724 allopurinol (ZYLOPRIM) tablet 200 mg 200 mg Oral Daily Keyona Miller MD 200 mg at 09/17/24 0827 aspirin chewable tablet 81 mg 81 mg Oral Daily Keyona Miller MD 81 mg at 09/17/24 0828 atorvastatin (LIPITOR) tablet 80 mg 80 mg Oral Nightly at bedtime Keyona Miller MD 80mg at 09/16/24 2040 bumetanide (BUMEX) tablet 2 mg 2 mg Oral Daily Juanpablo Herman MD 2 mg at 09/16/24 0833 clotrimazole-betamethasone (LOTRISONE) cream Topical Q12H Nikolas Jiménez MD Given at 09/17/24 0828 dextrose (GLUTOSE) 40 % oral gel 37.5-75 g 15-30 g of dextrose Oral PRN Keyona Miller MD dextrose 10 % bolus infusion 125-250 mL 125-250 mL Intravenous PRN Keyona Miller MD Stopped at 09/06/24 1640 fentaNYL (SUBLIMAZE) injection 25 mcg 25 mcg Intravenous Q10 Min PRN Keyona Miller MD folic acid (FOLVITE) tablet 1 mg 1 mg Oral Daily Keyona Miller MD 1 mg at 09/17/24 0828 glucagon injection 1 mg 1 mg Intramuscular Once PRN Keyona Miller MD HYDROcodone-acetaminophen (NORCO) 5-325 MG tablet 1 tablet 1 tablet Oral Q4H PRN Keyona Miller MD 1 tablet at 09/16/24 2048 HYDROmorphone (DILAUDID) injection 0.2 mg 0.2 mg Intravenous Q2H PRN Nikolas Jiménez MD 0.2 mg at 09/04/24 1620 hydrOXYzine (ATARAX) tablet 50 mg 50 mg Per NG Tube TID PRN Keyona Miller MD insulin glargine (LANTUS) injection 20 Units 20 Units Subcutaneous Nightly at bedtime Isma Barrios MD 20 Units at 09/16/24 2220 insulin lispro (HUMALOG/ADMELOG) injection 0-3 Units 0-3 Units Subcutaneous TID AC Isma Barrios MD 1 Units at 09/16/24 1609 insulin lispro (HUMALOG/ADMELOG) injection 5 Units 5 Units Subcutaneous TID COLE Barrios MD 5Units at 09/17/24 0826 ipratropium-albuterol (DUONEB) 0.5-2.5 (3) MG/3ML nebulizer solution 3 mL 3 mL Nebulization Q4H Juanpablo Herman MD 3 mL at 09/17/24 0825 metoprolol succinate ER (TOPROL-XL) 24 hr tablet 12.5 mg 12.5 mg Oral Daily Juanpablo Paresh Herman MD 12.5 mg at 09/17/24 0827 naLOXone (NARCAN) injection 0.4 mg 0.4 mg Intravenous PRN Nikolas Jiménez MD nystatin (MYCOSTATIN) 624368 UNIT/ML suspension 5 mL 5 mL Oral 4x Daily Nikolas Jiménez MD 5 mL at 09/17/24 0826 nystatin (MYCOSTATIN) powder Topical BID Nikolas Jiménez MD Given at 09/17/24 0828 ondansetron (ZOFRAN) injection 4 mg 4 mg Intravenous Q8H PRN Nikolas Jiménez MD polyethylene glycol (GLYCOLAX) packet 17 g 17 g Oral Daily PRPhilly Miller MD pregabalin (LYRICA) capsule 150 mg 150 mg Oral BID Keyona Miller MD 150 mg at 09/17/24 0827 senna-docusate (SENOKOT-S) 8.6-50 MG tablet 1 tablet 1 tablet Oral BID Keyona Miller MD 1 tablet at 09/17/24 0828 sertraline (ZOLOFT) tablet 50 mg 50 mg Oral Daily Keyona Miller MD 50 mg at 09/17/24 08 traZODone (DESYREL) tablet 300 mg 300 mg Oral Nightly at bedtime Juanpablo Herman MD 300 mg at 09/16/242039 warfarin (COUMADIN) pharmacy to dose placeholder Oral See Admin Instructions Nikolas Jiménez MD warfarin (COUMADIN) tablet 6 mg 6 mg Oral Once Kelly Wilson MD Review of patient's allergies indicates: No Known Allergies Principal Problem: CHF exacerbation ([facility]) SNOMED CT(R): ACUTE EXACERBATION OF CHRONIC CONGESTIVE HEART FAILURE Filed Vitals: 09/16/24 1519 09/16/24 2058 09/17/24 0016 09/17/24 0544 BP: (!) 142/80 133/80 120/67 (!) 132/96 Pulse: 71 72 60 Resp: 19 18 18 Temp: 97.7 ??F (36.5 ??C) 98.1 ??F (36.7 ??C) TempSrc: Oral Oral SpO2: 98% 98% Weight: Height: Last 3 Recorded Weights 09/13/24 0500 09/14/24 0500 09/14/24 0900 Weight: 92.6 kg (204 lb 2.3 oz) 97.5 kg (214 lb 15.2 oz) 100.7 kg (222 lb 0.1 oz) Intake/Output Summary (Last 24 hours) at 09/17/2024 0831 Last data filed at 09/17/2024 0544 Gross per 24 hour Intake 600 ml Output 3200 ml Net -2600 ml Physical Exam: -GENERAL: No acute distress, breathing comfortably on room air. -EYES: Extraocular movements intact -ENT: Neck supple, Septum is midline. -LUNG: Clear to auscultation bilaterally, No wheezes, No crackles -CVS: Regular rate rhythm, S1 and S2 normal, No murmurs, -ABDOMEN: Soft, nondistended, Nontender, Bowel sounds observed -EXT: no lower Ext edema. -NEURO: Alert, awake, oriented x3, No gross neuro deficit -SKIN: Skin color, texture, turgor normal. No rashes or lesions LABs Recent Labs Lab 09/11/24 0358 09/12/24 0312 09/13/24 0458 09/14/24 0348 09/15/24 0504 09/16/24 0421 09/17/24 0343 NA 140 137 -- 137 139 -- -- K 3.5 4.3 -- 4.1 4.0 -- -- CL 104 102 -- 101 104 -- -- CO2 31.7 31.9 -- 31.4 32.9* -- -- AGAP 4.3 3.1 -- 4.6 2.1 -- -- BUN 36* 39* -- 46* 44* -- -- CR 1.52* 1.37* -- 1.39* 1.24 -- -- GLU 224* 304* -- 228* 55* -- -- CA 8.6 8.6 -- 8.6 8.5 -- -- MAGNESIUM 2.4 2.7* 2.9* 2.7* 2.4 2.4 2.3 PHOS 3.1 2.9 3.1 2.4* 2.9 3.4 3.3 Recent Labs Lab 09/11/24 0358 09/12/24 0312 09/14/24 0348 09/15/24 0504 WBC 13.97* 13.55* 14.68* 11.65* RBC 3.68* 3.75* 3.77* 3.90* HGB 10.4* 10.8* 10.9* 11.2* HCT 34.9* 35.6* 35.8* 37.1 MCV 94.8 94.9 95.0 95.1 MCH 28.3 28.8 28.9 28.7 MCHC 29.8* 30.3* 30.4* 30.2* PLT 103* 129* 134* 133* RDW 15.5* 15.4* 15.3* 15.6* MPV 13.8* 13.9* 14.0* 13.9* Assessment/Plan: 69-year-old gentleman with past medical history significant for CKD stage III, atrial fibrillation,heart failure with reduced ejection fraction, coronary disease, aortic stenosis status post bioprosthetic aortic valve placement, pulmonary hypertension, COPD, obstructive sleep apnea, dyslipidemia, diabetes mellitus type 2, stroke, anxiety, hypertension, restless leg syndrome who presented due to BRITTANY and hyperkalemia. Patient had a fall on 08/18/2024, initially declined treatment but ultimately presented to outside ED 2 days ago with rib pain and knee pain. He also reported shortness of breath and lower extremity swelling. His creatinine was found to be 2 with potassium 5.9. Patient transferred to [facility] for BRITTANY and hyperkalemia management. BRITTANY on CKD stage III -Baseline creatinine 1.3-1.5. Patient also follows with Dr. Beltran -At outside hospital creatinine was 2.0, patient received fluids and creatinine increased to 2.8. This is likely related to hemodynamics/fluid overload. -Renal ultrasound showed suboptimal visualization of right kidney. No right sided hydronephrosis. No increase echogenicity. Right kidney 11.6 cm. Left kidney was not seen. -CPK normal, urinalysis reviewed. BRITTANY serology negative -Initial chest x-ray showed pulmonary vascular congestion and interstitial edema -s/p aggressive IV diuresis. Net -20 liter uf and weight down 22 kilos -Most recent creatinine 1.24 -Bumex oral 2 mg once daily -Strict I's/O, avoid nephrotoxins - today's labs Wednesday -Daily renal panel 2. HTN. -Blood pressure stable -Continue to avoid STEVIE/ARB 3. Anemia of chronic disease. Hemoglobin stable 4. Electrolytes. -stable. 5. Renal osteodystrophy. Calcium and phosphorus levels are okay 6. Disposition stable . Follow-up with Dr. Beltran in 1 to 2 weeks after discharge with renal panel Thank you for allowing me to participate in the care of this patient. We will continue to follow this patient with you. Please contact us with further questions. LUDY MORRELL MD 09/17/2024 ROOM SUPERVISOR * Amalia Eldridge, PharmD - 09/17/2024 7:05 AM CST Warfarin - Pharmacy Dosing Service Note Obie Sims is a 69-year-old male for which pharmacy has been consulted to dose warfarin for A.fib. Goal INR is 2-3. Warfarin Order Set Activated: Yes Warfarin Start Date: continuation from home Past Medical History: Diagnosis Date Abnormal ankle brachial index ([facility]) Acute on chronic heart failure, unspecified heart failure type ([facility]) Anxiety Aortic valve stenosis Arthritis Asthma, mild persistent ([facility]) 04/06/2021 Atrial fibrillation ([facility]) s/p PVI/[facility] 10/2015 Bilateral leg pain Carotid disease, bilateral ([facility]) CHF (congestive heart failure) ([facility]) Claudication ([facility]) COPD (chronic obstructive pulmonary disease) ([facility]) Coronary artery disease Diabetes mellitus, type II ([facility]) Edema 04/19/2018 2+ pitting History of blood transfusion Hyperlipidemia Hypertension LV dysfunction Non-pressure chronic ulcer of left calf limited to breakdown of skin ([facility]) 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 breakdown of skin ([facility]) Osteoarthritis PAD (peripheral artery disease) ([facility]) Pneumonia Restless leg syndrome S/P aortic valve replacement with bioprosthetic valve 2013 SOB (shortness of breath) Stroke ([facility]) Varicose veins of bilateral lower extremities with other complications Weight gain with edema Home warfarin dose: warfarin 2 mg po daily per med rec Bridging agent: none Vitamin K use: No; (if yes, indicate date, dose, and route) Diet: PO Recent Labs Lab 09/12/24 0312 09/14/24 0348 09/15/24 0504 HGB 10.8* 10.9* 11.2* HCT 35.6* 35.8* 37.1 PLT 129* 134* 133* AST -- 18 -- ALT -- 31 -- ALKP -- 114 -- ALB -- 2.5* -- Date INR Dose Received 08/28 5.4 per [facility] paperwork - 08/29 - - 08/30 2.7 2 mg at OL 08/31 1.8 - 09/01 1.6 2 mg 09/02 1.9 2 mg 09/03 2.6 hold 09/04 3.7 hold 09/05 2.2 2 mg 09/06 1.7 Missed dose as was npo 09/07 1.4 2 mg 09/08 1.8 1 mg 09/09 1.5 2 mg 09/10 1.3 2 mg 09/11 1.3 2 mg 09/12 1.4 2.5 mg 09/13 1.2 4 mg 09/14 1.3 4 mg 09/15 1.4 6 mg 09/16 1.4 6 mg 09/17 1.5 Drug interactions: Potential to increase INR: Potential to decrease INR: - Potential to increase the risk of bleeding: aspirin, sertraline Warfarin Sensitivity: high, based on the following risk factors: albumin < or = to 2.5, concomitant antiplatelet therapy, thrombocytopenia, age 66-79, 1 moderate drug interaction, and diagnosis ofheart failure. Hgb/Hct today are stable INR today subtherapeutic INR increasing slightly today, will increase dose again The plan is to give 6 mg tonight. Will recheck an INR in the morning to assist with subsequent dosing. Pharmacy will continue to monitor labs and notes daily, adjusting the dose as clinically appropriate. Thank you for the consult. Pharmacy to dose per Dr. Neftali ELDRIDGE, PharmD Phone number: [phone] 09/17/2024 7:05 AM ROOM SUPERVISOR * Carrie Aaron MD - 09/16/2024 1:45 PM CST [facility] PROGRESS NOTE Reason for admission: CHF exacerbation ([facility]) [I50.9] Reason for consult: Acute hypoxic and hypercarbic respiratory failure ASSESSMENT AND PLAN Obie Sims is a 69-year-old male, with history of COPD (FEV1 50%), SHEELA not on CPAP, A-fib on Warfarin, HFrEF, CAD, aortic stenosis s/p bioprosthetic aortic valve replacement, PAD, DM2, CKD stage III, CVA, HTN, HLD, anxiety/depression, and RLS. No significant smoking history. Quit more than 40 years ago and was not a regular smoker. Admitted 08/31 after transfer from [facility] for CHF exacerbation, BRITTANY, and hyperkalemia. He initially presented to outside hospital after a fall, found to have rib fractures. Required emergent intubation for hypoxia 09/04 and transferred to ICU. Diuresed and treated for possible aspiration pneumonia. Extubated 09/06. Patient requiring BiPAP at night and intermittently throughout the day for hypercapnia. Will need arrangement for home NIV machine, for which [facility] was consulted. Active Problems # Acute hypoxic/hypercapnic respiratory failure # Acute on chronic heart failure with exacerbation # Pneumonia, completed antibiotics # COPD exacerbation # Hx SHEELA, not on CPAP Pertinent Workup CXR 09/09/24: Cardiomegaly with interval increase in pulmonary vascular congestion. Echo 08/31/24: Technically difficult. Mildly enlarged LV. EF 43%. Moderate- severely enlarged RV with severely depressed systolic function. RVSP 36. Moderate aortic valve stenosis. Mild TR. 08/31 Blood culture: no growth 09/01 Urine culture: no growth 09/03 Blood culture: no growth 09/05 Tracheal aspirate culture: no growth VBG 09/13 0458 (wore BiPAP 12/5 cwp all night): pH 7.29/pCO2 68.6 VBG 09/13 1300 (after 3 hours on BiPAP 12/5 cwp): pH 7.32/pCO2 63.4 VBG 09/14 0348 (on BiPAP 12/6 cwp): pH 7.34/pCO2 62.0 VBG 09/15 0504 (on 2L oxygen overnight): pH 7.38/pCO2 57.3 Overnight oximetry on 2L oxygen 09/14 - 09/15: 9 minutes 22 seconds of desaturation below 88%. Bedside spirometry 09/15/24: FEV1 0.72L(25%), FVC 0.95L(26%), ratio 0.75. Quality grade A. Consistent with airway restriction. Will need complete PFT after discharge. Previous pulmonary workup: - PFT 03/26/21: FEV1 1.42L(50%), FVC 2.11L(59%), ratio 0.67, TLC 76%, RV 101%, DLCO 41%. - Home sleep study 05/20/21: AHI 10. [facility] Pulmonology Recommendations - Patient will not be able to qualify for a home BiPAP machine while inpatient. His insurance will require an outpatient sleep study to be done. If he discharges to a swing bed unit or correction facility, he can continue to wear BiPAP 12/6 cwp, 35% FiO2 while there. - Recommend home oxygen evaluation prior to discharge. - Continue home inhalers on discharge. - Optimize patient's heart failure per cardiology. - Follow up with Dr. Saleh in [place] after discharge. Call [phone] to schedule appointment. Thank you for the consult. We will sign off SUBJECTIVE Patient was examined at chairside today morning. He did nt report any acute events overnight. He states that he feels fine, he does not report any worsening shortness of breath, headaches. He did notreport any new onset cough today morning. Review of Systems Constitutional: Negative for chills and fever. Eyes: Negative for blurred vision. Respiratory: Positive for cough and sputum production. Negative for hemoptysis, shortness of breathand wheezing. Minimal shortness of breath with activity. Cardiovascular: Negative for chest pain and palpitations. Gastrointestinal: Negative for abdominal pain, constipation, diarrhea, nausea and vomiting. Genitourinary: Negative for dysuria. Neurological: Negative for dizziness and headaches. OBJECTIVE Physical Exam Constitutional: General: He is not in acute distress. Appearance: He is obese. HENT: Head: Normocephalic and atraumatic. Eyes: Extraocular Movements: Extraocular movements intact. Cardiovascular: Rate and Rhythm: Normal rate. Heart sounds: No murmur heard. Pulmonary: Effort: Pulmonary effort is normal. No respiratory distress. Breath sounds: Decreased breath sounds present. No wheezing, rhonchi or rales. Comments: On BiPAP 12/6 cwp with 35% FiO2. Abdominal: Palpations: Abdomen is soft. Tenderness: There is no abdominal tenderness. Musculoskeletal: Right lower leg: No edema. Left lower leg: No edema. Skin: General: Skin is warm and dry. Nails: There is no clubbing. Neurological: General: No focal deficit present. Mental Status: He is alert and oriented to person, place, and time. Psychiatric: Mood and Affect: Mood normal. Thought Content: Thought content normal. Recent Vitals: Filed Vitals: 09/16/24 0422 09/16/24 0718 09/16/24 1108 09/16/24 1519 BP: 114/65 131/75 131/76 (!) 142/80 Pulse: 60 70 Resp: 12 18 19 Temp: 97.3 ??F (36.3 ??C) 97.5 ??F (36.4 ??C) 97.6 ??F (36.4 ??C) 97.7 ??F (36.5 ??C) TempSrc: Oral Oral Oral Oral SpO2: 94% 97% 98% 98% Weight: Height: Medications: acetylcysteine 10 % 200 mg Nebulization 2 times daily allopurinol 200 mg Oral Daily aspirin 81 mg Oral Daily atorvastatin 80 mg Oral Nightly at bedtime bumetanide 2 mg Oral Daily clotrimazole-betamethasone Topical Q12H folic acid 1 mg Oral Daily insulin glargine 20 Units Subcutaneous Nightly at bedtime insulin lispro 0-3 Units Subcutaneous TID AC insulin lispro 5 Units Subcutaneous TID AC ipratropium-albuterol 3 mL Nebulization Q4H metoprolol succinate ER 12.5 mg Oral Daily nystatin 5 mL Oral 4x Daily nystatin Topical BID pregabalin 150 mg Oral BID senna-docusate 1 tablet Oral BID sertraline 50 mg Oral Daily traZODone 300 mg Oral Nightly at bedtime warfarin (COUMADIN) pharmacy to dose Oral See Admin Instructions PRN: acetaminophen, albuterol, glucose, dextrose 10 % bolus, [DISCONTINUED] fentaNYL AND [DISCONTINUED] fentaNYL AND fentaNYL, glucagon, HYDROcodone- acetaminophen, HYDROmorphone, hydrOXYzine, naLOXone, ondansetron, polyethylene glycol Labs: Recent Labs 09/14/24 0348 09/15/24 0504 09/16/24 0421 WBC 14.68* 11.65* -- HGB 10.9* 11.2* -- PLT 134* 133* -- GLU 228* 55* -- BUN 46* 44* -- CR 1.39* 1.24 -- NA 137 139 -- K 4.1 4.0 -- CL 101 104 -- CO2 31.4 32.9* -- PHOS 2.4* 2.9 3.4 ALT 31 -- -- AST 18 -- -- Micro: Microbiology Results (last 14 days) Procedure Component Value Units Date/Time MRSA PCR nares Screening [[id number]] Collected: 09/07/24 0848 Order Status: Canceled Lab Status: No result Specimen: NASAL CULTURE, RESPIRATORY W/ GRAM STAIN [[id number]] Collected: 09/05/24 0740 Order Status: Completed Lab Status: Final result Updated: 09/10/24 1031 Specimen: TRACHEAL ASPIRATE SPEC DESCRIPTION TRACHEAL ASPIRATE SPECIAL REQUESTS NO SPECIAL REQUEST GRAM STAIN RESULT <10 EPITHELIAL CELLS PER LPF GRAM STAIN RESULT >25 NEUTROPHILS PER LPF GRAM STAIN RESULT NO ORGANISMS SEEN CULTURE RESULT NO GROWTH 5 DAYS Gastric PH [[id number]] Order Status: Canceled Lab Status: No result Specimen: GASTRIC FLUID CULTURE, BACTERIA BLOOD [[id number]] Collected: 09/03/24 1223 Order Status: Completed Lab Status: Final result Updated: 09/08/24 2136 Specimen: BLOOD SPEC DESCRIPTION BLOOD SPECIAL REQUESTS NO SPECIAL REQUEST CULTURE RESULT NO GROWTH 5 DAYS CULTURE, URINE [[id number]] Collected: 09/01/24 1110 Order Status: Completed Lab Status: Final result Updated: 09/03/24 0835 Specimen: URINE, CLEAN CATCH SPEC DESCRIPTION URINE CLEAN CATCH SPECIAL REQUESTS NO SPECIAL REQUEST CULTURE RESULT NO GROWTH (< OR = 1,000 CFU/ML) CULTURE, BACTERIA BLOOD X2 [[id number]] Collected: 08/31/24 1034 Order Status: Completed Lab Status: Final result Updated: 09/06/24 0011 Specimen: BLOOD SPEC DESCRIPTION BLOOD SPECIAL REQUESTS NO SPECIAL REQUEST CULTURE RESULT NO GROWTH 5 DAYS Carrie Aaron MD [facility] 09/16/2024 Cosigned by Broderick Cheng MD at 09/16/2024 8:05 PM WAX ROOM SUPERVISOR ROOM SUPERVISOR ROOM SUPERVISOR Associated attestation - Broderick Cheng MD - 09/16/2024 8:05 PM WAX ROOM SUPERVISOR Pulmonary Attending: I rounded with Dr. Addis Aaron, the IM resident. on the Pulmonary Consult Team. Iobtained a history from the resident + the patient. I interviewed and examined the patient. I discussed the pt's management and Pulmonary Recommendations with the resident. I reviewed the resident's note, recent labs and chest imaging and I agree with the history, PE findings and recommendations asrecorded. Time: 30 min. * Kelly Wilson MD - 09/16/2024 12:06 PM CST Images from the original note were not included. [employer] Hospitalist Progress note Chief Complain: Respiratory failure ASSESSMENT /PLAN: Obie Sims is an 69-year-old male with a past medical history of CKD stage III, atrial fibrillation on warfarin, heart failure with reduced ejection fraction, coronary artery disease, aortic stenosis status post bioprosthetic aortic valve replacement, pulmonary hypertension, COPD/asthma, obstructive sleep apnea, hyperlipidemia, diabetes mellitus type 2, CVA, carotid disease, anxiety/depression, hypertension, PAD, and RLS. He was transferred to [facility] with BRITTANY and hyperkalemia. During this hospitalization patient developed worsening hypoxic respiratory failure requiring intubation, transferred to ICU. In ICU he was treated with IV Lasix drip and also treated for possible aspiration pneumonia. Now extubated, transferred out of ICU ON 09/07/2023 Acute on chronic heart failure with reduced ejection fraction Anasarca Pulmonary hypertension Valvular heart disease Acute respiratory failure with hypoxia/hypercarbia -Echocardiogram from February 2024 reveals an ejection fraction of 40 to 45% with bioprosthetic aortic valve, no central or periprosthetic aortic regurgitation, mild mitral regurgitation, and mild tricuspid regurgitation. Worsening hypoxic respiratory failure requiring ICU admission, intubation -Strict intake and output with daily weights. Monitor renal functions -Holding Entresto in light of BRITTANY. Will resume ygmy-royapuiu-yxvbi dose -[facility] nephrology consulted. Nephrology dosing diuretics as and when needed Cardiology following, appreciate recommendations- Continue BiPAP at night for hypercapnic respiratory failure. Patient will need Arranged at rehab Patient will need a BiPAP arrangement at facility, pulmonary saw. Appreciate assistance Creatinine improving monitor Monitor respiratory status closely Pneumonia-HCAP versus aspiration Completed antibiotic course. Treated with Zosyn Encourage incentive spirometry Supplemental oxygen as needed BRITTANY on CKD stage III improving Hyperkalemia, resolved Hypernatremia Sodium improving Monitor renal functions, nephrology following Renal functions improving Will discuss with nephrology, started diuretics as tolerated Ground-level fall Rib fractures Generalized weakness -CT of the chest shows acute fractures of the seventh and eighth right ribs. -PT/OT consult. -Pain control. -Incentive spirometer. Concern for pneumonia probably HCAP versus aspiration Completed antibiotic course hematuria -UA negative. -Likely due to traumatic Oneill insertion and/or trauma to Oneill in setting of supratherapeutic INR.Initial UA with no RBCs. Resolved, monitor Atrial fibrillation Supratherapeutic INR, resolved Nonsustained ventricular tachycardia -INR was 5.4 on presentation. -Continue beta-kim for rate control. -Pharmacy consulted for Coumadin dosing. Monitor INR -Monitor telemetry. nonsustained ventricular tachycardia Continue small dose of beta-kim Continue current regimen, cardiology following. Appreciate cardiology Diabetes mellitus type 2 Labile blood sugar -Went up to greater than 500 couple days ago, had an episode of glycemia with blood sugars down to 30s this morning -Will consult [facility] endocrinology for further assistance. -Continue Jardiance. Continue sliding scale insulin and Lantus as indicated Coronary artery disease Hypertension Hyperlipidemia -Heart catheterization from 2020 revealed a 60% proximal LAD stenosis, 50% ostial RCA stenosis, bioprosthetic aortic valve without aortic regurgitation, and severe pulmonary hypertension. Will add small dose of beta-blockers, continue statins -Monitor telemetry. COPD/asthma overlap syndrome Hypercarbic respiratory failure-rate COPD exacerbation Continue bronchodilators. prednisone 40 mg daily-total 5 days Completed antibiotic therapy CVA Carotid disease PAD -Continue aspirin and statin. Body mass index is 35.83 kg/m??. DVT Prophylaxis:on warfarin Code Status: DNR Not Medically Ready/Awaiting Clinical Improvement Therapy recommending rehab placement case management involved discharge planning awaiting insuranceapproval SUBJECTIVE Patient seen and examined. Alert and oriented to time, place and person. Does not report any acute concerns. Using oxygen via nasal cannula OBJECTIVE Blood pressure 131/76, pulse 70, temperature 97.6 ??F (36.4 ??C), temperature source Oral, resp. rate 18, height 1.676 m (5' 6 ), weight 100.7 kg (222 lb 0.1 oz), SpO2 98%. Wt Readings from Last 3 Encounters: 09/14/24 100.7 kg (222 lb 0.1 oz) 08/24/24 106.6 kg (235 lb) 08/03/24 103 kg (227 lb) Review of Systems All other systems reviewed and are negative. Physical Exam Constitutional: Appearance: He is well-developed. HENT: Head: Normocephalic and atraumatic. Eyes: Pupils: Pupils are equal, round, and reactive to light. Cardiovascular: Rate and Rhythm: Normal rate and regular rhythm. Heart sounds: No murmur heard. No friction rub. Pulmonary: Breath sounds: No wheezing or rales. Chest: Chest wall: No tenderness. Abdominal: General: Bowel sounds are normal. Palpations: Abdomen is soft. Tenderness: There is no abdominal tenderness. There is no guarding or rebound. Musculoskeletal: General: Normal range of motion. Cervical back: Normal range of motion and neck supple. Skin: General: Skin is warm and dry. Findings: No rash. Neurological: Mental Status: He is alert and oriented to person, place, and time. LABS: Recent Labs 09/14/24 0348 09/15/24 0504 WBC 14.68* 11.65* HGB 10.9* 11.2* HCT 35.8* 37.1 MCV 95.0 95.1 PLT 134* 133* RBC 3.77* 3.90* Recent Labs 09/14/24 0348 09/15/24 0504 ALT 31 -- AST 18 -- CO2 31.4 32.9* CL 101 104 GLU 228* 55* K 4.1 4.0 NA 137 139 BUN 46* 44* Intake/Output Summary (Last 24 hours) at 09/16/2024 1206 Last data filed at 09/16/2024 0718 Gross per 24 hour Intake 620 ml Output 100 ml Net 520 ml Microbiology Results (last 14 days) Procedure Component Value Units Date/Time MRSA PCR nares Screening [[id number]] Collected: 09/07/24 0848 Order Status: Sent Lab Status: No result Specimen: NASAL CULTURE, RESPIRATORY W/ GRAM STAIN [[id number]] Collected: 09/05/24 0740 Order Status: Completed Lab Status: Preliminary result Updated: 09/08/24 0640 Specimen: TRACHEAL ASPIRATE SPEC DESCRIPTION TRACHEAL ASPIRATE SPECIAL REQUESTS NO SPECIAL REQUEST GRAM STAIN RESULT <10 EPITHELIAL CELLS PER LPF GRAM STAIN RESULT >25 NEUTROPHILS PER LPF GRAM STAIN RESULT NO ORGANISMS SEEN CULTURE RESULT NO GROWTH 3 DAYS Gastric PH [[id number]] Order Status: No result Lab Status: No result Specimen: GASTRIC FLUID CULTURE, BACTERIA BLOOD [[id number]] Collected: 09/03/24 1223 Order Status: Completed Lab Status: Preliminary result Updated: 09/07/241926 Specimen: BLOOD SPEC DESCRIPTION BLOOD SPECIAL REQUESTS NO SPECIAL REQUEST CULTURE RESULT NO GROWTH 4 DAYS CULTURE, URINE [[id number]] Collected: 09/01/24 1110 Order Status: Completed Lab Status: Final result Updated: 09/03/24 0835 Specimen: URINE, CLEAN CATCH SPEC DESCRIPTION URINE CLEAN CATCH SPECIAL REQUESTS NO SPECIAL REQUEST CULTURE RESULT NO GROWTH (< OR = 1,000 CFU/ML) CULTURE, BACTERIA BLOOD X2 [[id number]] Collected: 08/31/24 1034 Order Status: Completed Lab Status: Final result Updated: 09/06/24 0011 Specimen: BLOOD SPEC DESCRIPTION BLOOD SPECIAL REQUESTS NO SPECIAL REQUEST CULTURE RESULT NO GROWTH 5 DAYS Radiology MEDICATIONS Scheduled medications acetylcysteine 10 % 200 mg Nebulization 2 times daily allopurinol 200 mg Oral Daily aspirin 81 mg Oral Daily atorvastatin 80 mg Oral Nightly at bedtime bumetanide 2 mg Oral Daily clotrimazole-betamethasone Topical Q12H folic acid 1 mg Oral Daily insulin glargine 20 Units Subcutaneous Nightly at bedtime insulin lispro 0-3 Units Subcutaneous TID AC insulin lispro 5 Units Subcutaneous TID AC ipratropium-albuterol 3 mL Nebulization Q4H metoprolol succinate ER 12.5 mg Oral Daily nystatin 5 mL Oral 4x Daily nystatin Topical BID pregabalin 150 mg Oral BID senna-docusate 1 tablet Oral BID sertraline 50 mg Oral Daily traZODone 300 mg Oral Nightly at bedtime warfarin (COUMADIN) pharmacy to dose Oral See Admin Instructions warfarin 6 mg Oral Once Infusion PRN acetaminophen, albuterol, glucose, dextrose 10 % bolus, [DISCONTINUED] fentaNYL AND [DISCONTINUED] fentaNYL AND fentaNYL, glucagon, HYDROcodone- acetaminophen, HYDROmorphone, hydrOXYzine, naLOXone, ondansetron, polyethylene glycol Kelly Wilson MD 12:06 PM 09/16/2024 ROOM SUPERVISOR * Isma Barrios MD - 09/16/2024 8:36 AM CST Endocrinology Progress Note Reason For Follow-up: Type 2 diabetes mellitus Brief summary: Mr. Obie Sims is a 69 year old male who was admitted 09/07/24 with CHF exacerbation. Patient has a history of type 2 DM. At home patient was taking glipizide 5 mg BID, Jardiance 25 mgdaily, and Ozempic 1 mg weekly. Patient has not required insulin in the outpatient setting. Upon admission here patient's A1c was 7.0%. Patient's glycemic profile while inpatient has been very labilewith blood glucose levels as high as the 500s and as low as the 50s. Patient was on prednisone until 09/12/24 when he completed his course. Patient was given 40 mg of prednisone from 09/09-09/13/24. The evening of 09/12/24 at 2125 patient's blood glucose went up to above 500. He was given 12 units of insulin. At 0633 on 09/13/24 patient's blood glucose was 188. Since being off of prednisone patient's blood glucose has been more labile. Interval History: Mr. Sims reports feeling reasonably well. Denies nausea or vomiting. I reviewedhis glycemic profile with him today in detail. Fasting glucose 79 AM of 09/16/2024. Reports eating well. Medications Current Facility-Administered Medications Medication Dose Route Frequency Provider Last Rate Last Admin acetaminophen (TYLENOL) tablet 650 mg 650 mg Oral Q4H PRN Keyona Miller MD acetylcysteine 10 % (MUCOMYST) inhalation solution 200 mg 200 mg Nebulization 2 times daily Juanpablo Herman MD 200 mg at 09/16/24 0830 albuterol (PROVENTIL) (2.5 MG/3ML) 0.083% nebulizer solution 2.5 mg 2.5 mg Nebulization Q2H PRN Keyona Miller MD 2.5 mg at 09/04/24 0724 allopurinol (ZYLOPRIM) tablet 200 mg 200 mg Oral Daily Keyona Miller MD 200 mg at 09/16/24 0834 aspirin chewable tablet 81 mg 81 mg Oral Daily Keyona Miller MD 81 mg at 09/16/24 0834 atorvastatin (LIPITOR) tablet 80 mg 80 mg Oral Nightly at bedtime Keyona Miller MD 80mg at 09/15/24 2128 bumetanide (BUMEX) tablet 2 mg 2 mg Oral Daily Juanpablo Paresh Herman MD 2 mg at 09/16/24 0833 clotrimazole-betamethasone (LOTRISONE) cream Topical Q12H Nikolas Jiménez MD Given at 09/16/24 0834 dextrose (GLUTOSE) 40 % oral gel 37.5-75 g 15-30 g of dextrose Oral PRN Keyona Miller MD dextrose 10 % bolus infusion 125-250 mL 125-250 mL Intravenous PRN Keyona Miller MD Stopped at 09/06/24 1640 fentaNYL (SUBLIMAZE) injection 25 mcg 25 mcg Intravenous Q10 Min PRN Keyona Miller MD folic acid (FOLVITE) tablet 1 mg 1 mg Oral Daily Keyona Miller MD 1 mg at 09/16/24 0834 glucagon injection 1 mg 1 mg Intramuscular Once PRN Keyona Miller MD HYDROcodone-acetaminophen (NORCO) 5-325 MG tablet 1 tablet 1 tablet Oral Q4H PRN Keyona Miller MD 1 tablet at 09/15/24 2134 HYDROmorphone (DILAUDID) injection 0.2 mg 0.2 mg Intravenous Q2H PRN Nikolas Jiménez MD 0.2 mg at 09/04/24 1620 hydrOXYzine (ATARAX) tablet 50 mg 50 mg Per NG Tube TID PRN Keyona Miller MD insulin glargine (LANTUS) injection 20 Units 20 Units Subcutaneous Nightly at bedtime Isma Barrios MD insulin lispro (HUMALOG/ADMELOG) injection 0-3 Units 0-3 Units Subcutaneous TID COLE Barrios MD insulin lispro (HUMALOG/ADMELOG) injection 5 Units 5 Units Subcutaneous TID COLE Barrios MD ipratropium-albuterol (DUONEB) 0.5-2.5 (3) MG/3ML nebulizer solution 3 mL 3 mL Nebulization Q4H Juanpablo Herman MD 3 mL at 09/16/24 0834 metoprolol succinate ER (TOPROL-XL) 24 hr tablet 12.5 mg 12.5 mg Oral Daily Juanpablo Herman MD 12.5 mg at 09/16/24 0834 naLOXone (NARCAN) injection 0.4 mg 0.4 mg Intravenous PRN Nikolas Jiménez MD nystatin (MYCOSTATIN) [id number] UNIT/ML suspension 5 mL 5 mL Oral 4x Daily Nikolas Jiménez MD 5 mL at 09/16/24 0833 nystatin (MYCOSTATIN) powder Topical BID Nikolas Jiménez MD Given at 09/16/24 0834 ondansetron (ZOFRAN) injection 4 mg 4 mg Intravenous Q8H PRN Nikolas Jiménez MD polyethylene glycol (GLYCOLAX) packet 17 g 17 g Oral Daily PRN Keyona Miller MD pregabalin (LYRICA) capsule 150 mg 150 mg Oral BID Keyona Miller MD 150 mg at 09/16/24 0833 senna-docusate (SENOKOT-S) 8.6-50 MG tablet 1 tablet 1 tablet Oral BID Keyona Miller MD 1 tablet at 09/16/24 0834 sertraline (ZOLOFT) tablet 50 mg 50 mg Oral Daily Keyona Miller MD 50 mg at 09/16/24 0834 traZODone (DESYREL) tablet 300 mg 300 mg Oral Nightly at bedtime Juanpablo Herman MD 300 mg at 01/24/25 2127 warfarin (COUMADIN) pharmacy to dose placeholder Oral See Admin Instructions Nikolas Jiménez MD warfarin (COUMADIN) tablet 6 mg 6 mg Oral Once Kelly Wilson MD No Known Allergies Review of Systems Constitutional: Positive for fatigue. Respiratory: Positive for shortness of breath. Less shortness of breath as compared to hospital presentation. Cardiovascular: Positive for leg swelling. Gastrointestinal: Negative. Endocrine: Glycemic profile reviewed with the patient. Skin: Denies foot ulcers. Vitals: 09/16/24 0718 BP: 131/75 Pulse: 70 Resp: 20 Temp: 97.5 ??F (36.4 ??C) SpO2: 97% Physical Exam Constitutional: Comments: Appears comfortable sitting up in chair. BMI greater than 30. HENT: Head: Normocephalic. Mouth/Throat: Mouth: Mucous membranes are moist. Pharynx: Oropharynx is clear. Eyes: Conjunctiva/sclera: Conjunctivae normal. Pupils: Pupils are equal, round, and reactive to light. Cardiovascular: Rate and Rhythm: Normal rate and regular rhythm. Comments: Right DP pulse palpable. Left DP pulse not palpable. No significant lower extremity edema. Pulmonary: Comments: Lung marroquin diminished throughout with bibasilar crackles. Respiratory effort becomes mildly labored with speaking multiple sentences consecutively. Abdominal: General: Bowel sounds are normal. Palpations: Abdomen is soft. Skin: General: Skin is warm and dry. Comments: No open skin lesions of the feet. Skin of the lower legs and feet is atrophic in appearance. Neurological: General: No focal deficit present. Mental Status: He is alert and oriented to person, place, and time. Psychiatric: Mood and Affect: Mood normal. Behavior: Behavior normal. Recent Labs Lab 09/15/24 0650 09/15/24 0720 09/15/24 0822 09/15/24 1045 09/15/24 1646 09/15/242 09/16/24 0635 GLUCOSEPOC 34* 134* 128* 124* 264* 178* 79 Assessment and Recommendations: Home DM program: Glipizide 10 mg daily (unsure of dose); Jardiance 25 mg daily; Ozempic 1 mg daily A1c here 7% PCP: Dr. Megan Infante in [place] DM type 2: Significant and exacerbation in hyperglycemia due to corticosteroid therapy. Fasting AM glucose 79. Lantus 24 units was given the night of September 15, 2024. Lantus will be decreased to 20 units each night at bedtime. Humalog will be changed to 5 units at meals in addition to prandial correction. He was given a one-time dose of Humalog 3 units for breakfast this morning. A significant degree of his insulin resistance has gone away given termination of systemic corticosteroid therapy. Medical nutrition therapy will take place. Consistent carbohydrates for any oral intake. Call parameters have been placed for the patient's glucose values. We will continue to follow while inpatient. CHF exacerbation: Clinically improved. BMI 35: MNT will take place. COPD exacerbation: Prednisone completed 09/13/2024. BRITTANY: Resolved. Creatinine 1.24 mg/dL on 09/15/2024. Disposition: Upon discharge Mr. Sims desires to follow with his primary care physician, Dr. Megan Infante, in [place] for his diabetes management. He has done a very good job with his outpatient diabetes management based on his A1c value. ISMA BARRIOS MD ROOM SUPERVISOR * Ludy Morrell MD - 09/16/2024 8:19 AM CST [facility] Nephrology Progress Note Obie Sims is a 69-year-old male patient. Brittany management HPI 69-year-old gentleman with past medical history significant for CKD stage III, atrial fibrillation,heart failure with reduced ejection fraction, coronary disease, aortic stenosis status post bioprosthetic aortic valve placement, pulmonary hypertension, COPD, obstructive sleep apnea, dyslipidemia, diabetes mellitus type 2, stroke, anxiety, hypertension, restless leg syndrome who presented due to BRITTANY and hyperkalemia. Patient had a fall on 08/18/2024, initially declined treatment but ultimately presented to outside ED 2 days ago with rib pain and knee pain. He also reported shortness of breath and lower extremity swelling. His creatinine was found to be 2 with potassium 5.9. Patient transferred to [facility] for BRITTANY and hyperkalemia management. Nephrology consulted to manage kidney diseas Subjective Doing well; reports no chest pain, no dyspnea, no urinary complaints Review Of Systems 12 point negative Current Facility-Administered Medications Medication Dose Route Frequency Provider Last Rate Last Admin acetaminophen (TYLENOL) tablet 650 mg 650 mg Oral Q4H PRN Keyona Miller MD acetylcysteine 10 % (MUCOMYST) inhalation solution 200 mg 200 mg Nebulization 2 times daily Juanpablo Herman MD 200 mg at 09/15/242124 albuterol (PROVENTIL) (2.5 MG/3ML) 0.083% nebulizer solution 2.5 mg 2.5 mg Nebulization Q2H PRN Keyona Miller MD 2.5 mg at 09/04/24 0724 allopurinol (ZYLOPRIM) tablet 200 mg 200 mg Oral Daily Keyona Miller MD 200 mg at 09/15/24 0843 aspirin chewable tablet 81 mg 81 mg Oral Daily Keyona Miller MD 81 mg at 09/15/24 0843 atorvastatin (LIPITOR) tablet 80 mg 80 mg Oral Nightly at bedtime Keyona Miller MD 80mg at 09/15/248 bumetanide (BUMEX) tablet 2 mg 2 mg Oral Daily Juanpablo Herman MD 2 mg at 09/15/24 0843 clotrimazole-betamethasone (LOTRISONE) cream Topical Q12H Nikolas Jiménez MD Given at 09/14/24 2112 dextrose (GLUTOSE) 40 % oral gel 37.5-75 g 15-30 g of dextrose Oral PRN Keyona Miller MD dextrose 10 % bolus infusion 125-250 mL 125-250 mL Intravenous PRN Keyona Miller MD Stopped at 09/06/24 1640 fentaNYL (SUBLIMAZE) injection 25 mcg 25 mcg Intravenous Q10 Min PRN Keyona Miller MD folic acid (FOLVITE) tablet 1 mg 1 mg Oral Daily Keyona Miller MD 1 mg at 09/15/24 0843 glucagon injection 1 mg 1 mg Intramuscular Once PRN Keyona Miller MD HYDROcodone-acetaminophen (NORCO) 5-325 MG tablet 1 tablet 1 tablet Oral Q4H PRN Keyona Miller MD 1 tablet at 09/15/24 2134 HYDROmorphone (DILAUDID) injection 0.2 mg 0.2 mg Intravenous Q2H PRN Nikolas Jiménez MD 0.2 mg at 09/04/24 1620 hydrOXYzine (ATARAX) tablet 50 mg 50 mg Per NG Tube TID PRN Keyona Miller MD insulin glargine (LANTUS) injection 24 Units 24 Units Subcutaneous Nightly at bedtime Isma Barrios MD 24 Units at 09/15/24 2131 insulin lispro (HUMALOG/ADMELOG) injection 0-3 Units 0-3 Units Subcutaneous TID COLE Barrios MD insulin lispro (HUMALOG/ADMELOG) injection 6 Units 6 Units Subcutaneous TID COLE Barrios MD 6Units at 09/15/24 1718 ipratropium-albuterol (DUONEB) 0.5-2.5 (3) MG/3ML nebulizer solution 3 mL 3 mL Nebulization Q4H Juanpablo Herman MD 3 mL at 09/16/24 0431 metoprolol succinate ER (TOPROL-XL) 24 hr tablet 12.5 mg 12.5 mg Oral Daily Juanpablo Herman MD 12.5 mg at 09/15/24 0844 naLOXone (NARCAN) injection 0.4 mg 0.4 mg Intravenous PRN Nikolas Jiménez MD nystatin (MYCOSTATIN) 091413 UNIT/ML suspension 5 mL 5 mL Oral 4x Daily Nikolas Jiménez MD 5 mL at09/15/24 1719 nystatin (MYCOSTATIN) powder Topical BID Nikolas Jiménez MD Given at 09/15/24 0844 ondansetron (ZOFRAN) injection 4 mg 4 mg Intravenous Q8H PRN Nikolas Jiménez MD polyethylene glycol (GLYCOLAX) packet 17 g 17 g Oral Daily PRN Keyona Miller MD pregabalin (LYRICA) capsule 150 mg 150 mg Oral BID Keyona Miller MD 150 mg at 09/15/24 2128 senna-docusate (SENOKOT-S) 8.6-50 MG tablet 1 tablet 1 tablet Oral BID Keyona Miller MD 1 tablet at 09/15/24 0844 sertraline (ZOLOFT) tablet 50 mg 50 mg Oral Daily Keyona Miller MD 50 mg at 09/15/24 0843 traZODone (DESYREL) tablet 300 mg 300 mg Oral Nightly at bedtime Juanpablo Paresh Herman MD 300 mg at 09/15/242126 warfarin (COUMADIN) pharmacy to dose placeholder Oral See Admin Instructions Nikolas Jiménez MD warfarin (COUMADIN) tablet 6 mg 6 mg Oral Once Kelly Wilson MD Review of patient's allergies indicates: No Known Allergies Principal Problem: CHF exacerbation ([facility]/HCC [facility]) SNOMED CT(R): ACUTE EXACERBATION OF CHRONIC CONGESTIVE HEART FAILURE Filed Vitals: 09/15/248 09/16/24 0030 09/16/24 0422 09/16/24 0718 BP: 130/69 109/74 114/65 131/75 Pulse: 74 79 60 70 Resp: 12 20 Temp: 96.6 ??F (35.9 ??C) 97.3 ??F (36.3 ??C) 97.5 ??F (36.4 ??C) TempSrc: Temporal Oral Oral SpO2: 94% 99% 94% 97% Weight: Height: Last 3 Recorded Weights 09/13/24 0500 09/14/24 0500 09/14/24 0900 Weight: 92.6 kg (204 lb 2.3 oz) 97.5 kg (214 lb 15.2 oz) 100.7 kg (222 lb 0.1 oz) Intake/Output Summary (Last 24 hours) at 09/16/2024 0820 Last data filed at 09/16/2024 0718 Gross per 24 hour Intake 1210 ml Output 200 ml Net 1010 ml Physical Exam: -GENERAL: No acute distress, breathing comfortably on room air. -EYES: Extraocular movements intact -ENT: Neck supple, Septum is midline. -LUNG: Clear to auscultation bilaterally, No wheezes, No crackles -CVS: Regular rate rhythm, S1 and S2 normal, No murmurs, -ABDOMEN: Soft, nondistended, Nontender, Bowel sounds observed -EXT: no lower Ext edema. -NEURO: Alert, awake, oriented x3, No gross neuro deficit -SKIN: Skin color, texture, turgor normal. No rashes or lesions LABs Recent Labs Lab 09/10/24 0549 09/11/24 0358 09/12/24 0312 09/13/24 0458 09/14/24 0348 09/15/24 0504 09/16/24 0421 NA 147* 140 137 -- 137 139 -- K 3.6 3.5 4.3 -- 4.1 4.0 -- CL 114 104 102 -- 101 104 -- CO2 28.8 31.7 31.9 -- 31.4 32.9* -- AGAP 4.2 4.3 3.1 -- 4.6 2.1 -- BUN 37* 36* 39* -- 46* 44* -- CR 1.52* 1.52* 1.37* -- 1.39* 1.24 -- GLU 330* 224* 304* -- 228* 55* -- CA 8.9 8.6 8.6 -- 8.6 8.5 -- MAGNESIUM 2.9* 2.4 2.7* 2.9* 2.7* 2.4 2.4 PHOS 2.3* 3.1 2.9 3.1 2.4* 2.9 3.4 Recent Labs Lab 09/10/24 0547 09/11/24 0358 09/12/24 0312 09/14/24 0348 09/15/24 0504 WBC 11.75* 13.97* 13.55* 14.68* 11.65* RBC 4.07* 3.68* 3.75* 3.77* 3.90* HGB 11.7* 10.4* 10.8* 10.9* 11.2* HCT 39.8 34.9* 35.6* 35.8* 37.1 MCV 97.8 94.8 94.9 95.0 95.1 MCH 28.7 28.3 28.8 28.9 28.7 MCHC 29.4* 29.8* 30.3* 30.4* 30.2* PLT 107* 103* 129* 134* 133* RDW 15.8* 15.5* 15.4* 15.3* 15.6* MPV 14.3* 13.8* 13.9* 14.0* 13.9* Assessment/Plan: 69-year-old gentleman with past medical history significant for CKD stage III, atrial fibrillation,heart failure with reduced ejection fraction, coronary disease, aortic stenosis status post bioprosthetic aortic valve placement, pulmonary hypertension, COPD, obstructive sleep apnea, dyslipidemia, diabetes mellitus type 2, stroke, anxiety, hypertension, restless leg syndrome who presented due to BRITTANY and hyperkalemia. Patient had a fall on 08/18/2024, initially declined treatment but ultimately presented to outside ED 2 days ago with rib pain and knee pain. He also reported shortness of breath and lower extremity swelling. His creatinine was found to be 2 with potassium 5.9. Patient transferred to [facility] for BRITTANY and hyperkalemia management. BRITTANY on CKD stage III -Baseline creatinine 1.3-1.5. Patient also follows with Dr. Beltran -At outside hospital creatinine was 2.0, patient received fluids and creatinine increased to 2.8. This is likely related to hemodynamics/fluid overload. -Renal ultrasound showed suboptimal visualization of right kidney. No right sided hydronephrosis. No increase echogenicity. Right kidney 11.6 cm. Left kidney was not seen. -CPK normal, urinalysis reviewed. BRITTANY serology negative -Initial chest x-ray showed pulmonary vascular congestion and interstitial edema -s/p aggressive IV diuresis. Net -20 liter uf and weight down 22 kilos -Most recent creatinine 1.24 -Bumex oral 2 mg once daily -Strict I's/O, avoid nephrotoxins 2. HTN. -Blood pressure stable -Continue to avoid STEVIE/ARB 3. Anemia of chronic disease. Hemoglobin stable 4. Electrolytes. -sodium is stable. 5. Renal osteodystrophy. Calcium and phosphorus levels are okay 6. Disposition stable . Follow-up with Dr. Beltran in 1 to 2 weeks after discharge with renal panel Thank you for allowing me to participate in the care of this patient. We will continue to follow this patient with you. Please contact us with further questions. LUDY MORRELL MD 09/16/2024 ROOM SUPERVISOR * Amalia Eldridge, PharmD - 09/16/2024 7:17 AM CST Warfarin - Pharmacy Dosing Service Note Obie Sims is a 69-year-old male for which pharmacy has been consulted to dose warfarin for A.fib. Goal INR is 2-3. Warfarin Order Set Activated: Yes Warfarin Start Date: continuation from home Past Medical History: Diagnosis Date Abnormal ankle brachial index (STELLA) Acute on chronic heart failure, unspecified heart failure type ([facility]) Anxiety Aortic valve stenosis Arthritis Asthma, mild persistent ([facility]) 04/06/2021 Atrial fibrillation ([facility]) s/p PVI/[facility] 10/2015 Bilateral leg pain Carotid disease, bilateral ([facility]) CHF (congestive heart failure) ([facility]) Claudication ([facility]) COPD (chronic obstructive pulmonary disease) ([facility]) Coronary artery disease Diabetes mellitus, type II ([facility]) Edema 04/19/2018 2+ pitting History of blood transfusion Hyperlipidemia Hypertension LV dysfunction Non-pressure chronic ulcer of left calf limited to breakdown of skin ([facility]) 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 breakdown of skin ([facility]) Osteoarthritis PAD (peripheral artery disease) ([facility]) Pneumonia Restless leg syndrome S/P aortic valve replacement with bioprosthetic valve 2013 SOB (shortness of breath) Stroke ([facility]) Varicose veins of bilateral lower extremities with other complications Weight gain with edema Home warfarin dose: warfarin 2 mg po daily per med rec Bridging agent: none Vitamin K use: No; (if yes, indicate date, dose, and route) Diet: PO Recent Labs Lab 09/12/24 0312 09/14/24 0348 09/15/24 0504 HGB 10.8* 10.9* 11.2* HCT 35.6* 35.8* 37.1 PLT 129* 134* 133* AST -- 18 -- ALT -- 31 -- ALKP -- 114 -- ALB -- 2.5* -- Date INR Dose Received 08/28 5.4 per [facility] paperwork - 08/29 - - 08/30 2.7 2 mg at [facility] 08/31 1.8 - 09/01 1.6 2 mg 09/02 1.9 2 mg 09/03 2.6 hold 09/04 3.7 hold 09/05 2.2 2 mg 09/06 1.7 Missed dose as was npo 09/07 1.4 2 mg 09/08 1.8 1 mg 09/09 1.5 2 mg 09/10 1.3 2 mg 09/11 1.3 2 mg 09/12 1.4 2.5 mg 09/13 1.2 4 mg 09/14 1.3 4 mg 09/15 1.4 6 mg 09/16 1.4 6 mg Drug interactions: Potential to increase INR: Potential to decrease INR: - Potential to increase the risk of bleeding: aspirin, sertraline Warfarin Sensitivity: high, based on the following risk factors: albumin < or = to 2.5, concomitant antiplatelet therapy, thrombocytopenia, age 66-79, 1 moderate drug interaction, and diagnosis ofheart failure. Hgb/Hct today are stable INR today subtherapeutic INR increasing slightly today, will increase dose again The plan is to give 6 mg tonight. Will recheck an INR in the morning to assist with subsequent dosing. Pharmacy will continue to monitor labs and notes daily, adjusting the dose as clinically appropriate. Thank you for the consult. Pharmacy to dose per Dr. Neftali ELDRIDGE, PharmD Phone number: [phone] 09/16/2024 7:17 AM ROOM SUPERVISOR * Kelly Wilson MD - 09/15/2024 2:03 PM CST Images from the original note were not included. [employer] Hospitalist Progress note Chief Complain: Respiratory failure ASSESSMENT /PLAN: Obie Sims is an 69-year-old male with a past medical history of CKD stage III, atrial fibrillation on warfarin, heart failure with reduced ejection fraction, coronary artery disease, aortic stenosis status post bioprosthetic aortic valve replacement, pulmonary hypertension, COPD/asthma, obstructive sleep apnea, hyperlipidemia, diabetes mellitus type 2, CVA, carotid disease, anxiety/depression, hypertension, PAD, and RLS. He was transferred to [facility] with BRITTANY and hyperkalemia. During this hospitalization patient developed worsening hypoxic respiratory failure requiring intubation, transferred to ICU. In ICU he was treated with IV Lasix drip and also treated for possible aspiration pneumonia. Now extubated, transferred out of ICU ON 09/07/2023 Acute on chronic heart failure with reduced ejection fraction Anasarca Pulmonary hypertension Valvular heart disease Acute respiratory failure with hypoxia/hypercarbia -Echocardiogram from February 2024 reveals an ejection fraction of 40 to 45% with bioprosthetic aortic valve, no central or periprosthetic aortic regurgitation, mild mitral regurgitation, and mild tricuspid regurgitation. Worsening hypoxic respiratory failure requiring ICU admission, intubation -Strict intake and output with daily weights. Monitor renal functions -Holding Entresto in light of BRITTANY. Will resume [id number] dose -[facility] nephrology consulted. Nephrology dosing diuretics as and when needed Cardiology following, appreciate recommendations- Continue BiPAP at night for hypercapnic respiratory failure. Patient will need Arranged at rehab Patient will need a BiPAP arrangement at facility, pulmonary saw. Appreciate assistance Creatinine improving monitor Monitor respiratory status closely Pneumonia-HCAP versus aspiration Completed antibiotic course. Treated with Zosyn Encourage incentive spirometry Supplemental oxygen as needed BRITTANY on CKD stage III improving Hyperkalemia, resolved Hypernatremia Sodium improving Monitor renal functions, nephrology following Renal functions improving Will discuss with nephrology, started diuretics as tolerated Ground-level fall Rib fractures Generalized weakness -CT of the chest shows acute fractures of the seventh and eighth right ribs. -PT/OT consult. -Pain control. -Incentive spirometer. Concern for pneumonia probably HCAP versus aspiration Completed antibiotic course hematuria -UA negative. -Likely due to traumatic Oneill insertion and/or trauma to Oneill in setting of supratherapeutic INR.Initial UA with no RBCs. Resolved, monitor Atrial fibrillation Supratherapeutic INR, resolved Nonsustained ventricular tachycardia -INR was 5.4 on presentation. -Continue beta-kim for rate control. -Pharmacy consulted for Coumadin dosing. Monitor INR -Monitor telemetry. nonsustained ventricular tachycardia Continue small dose of beta-kim Continue current regimen, cardiology following. Appreciate cardiology Diabetes mellitus type 2 Labile blood sugar -Went up to greater than 500 couple days ago, had an episode of glycemia with blood sugars down to 30s this morning -Will consult [facility] endocrinology for further assistance. -Continue Jardiance. Continue sliding scale insulin and Lantus as indicated Coronary artery disease Hypertension Hyperlipidemia -Heart catheterization from 2020 revealed a 60% proximal LAD stenosis, 50% ostial RCA stenosis, bioprosthetic aortic valve without aortic regurgitation, and severe pulmonary hypertension. Will add small dose of beta-blockers, continue statins -Monitor telemetry. COPD/asthma overlap syndrome Hypercarbic respiratory failure-rate COPD exacerbation Continue bronchodilators. prednisone 40 mg daily-total 5 days Completed antibiotic therapy CVA Carotid disease PAD -Continue aspirin and statin. Body mass index is 35.83 kg/m??. DVT Prophylaxis:on warfarin Code Status: DNR Not Medically Ready/Awaiting Clinical Improvement Therapy recommending rehab placement case management involved discharge planning awaiting insuranceapproval SUBJECTIVE Patient seen and examined. Alert and oriented to time, place and person. Does not report any acute concerns. Using oxygen via nasal cannula OBJECTIVE Blood pressure 131/77, pulse 72, temperature 98.4 ??F (36.9 ??C), temperature source Oral, resp. rate 19, height 1.676 m (5' 6 ), weight 100.7 kg (222 lb 0.1 oz), SpO2 94%. Wt Readings from Last 3 Encounters: 09/14/24 100.7 kg (222 lb 0.1 oz) 08/24/24 106.6 kg (235 lb) 08/03/24 103 kg (227 lb) Review of Systems All other systems reviewed and are negative. Physical Exam Constitutional: Appearance: He is well-developed. HENT: Head: Normocephalic and atraumatic. Eyes: Pupils: Pupils are equal, round, and reactive to light. Cardiovascular: Rate and Rhythm: Normal rate and regular rhythm. Heart sounds: No murmur heard. No friction rub. Pulmonary: Breath sounds: No wheezing or rales. Chest: Chest wall: No tenderness. Abdominal: General: Bowel sounds are normal. Palpations: Abdomen is soft. Tenderness: There is no abdominal tenderness. There is no guarding or rebound. Musculoskeletal: General: Normal range of motion. Cervical back: Normal range of motion and neck supple. Skin: General: Skin is warm and dry. Findings: No rash. Neurological: Mental Status: He is alert and oriented to person, place, and time. LABS: Recent Labs 09/14/24 0348 09/15/24 0504 WBC 14.68* 11.65* HGB 10.9* 11.2* HCT 35.8* 37.1 MCV 95.0 95.1 PLT 134* 133* RBC 3.77* 3.90* Recent Labs 09/14/24 0348 09/15/24 0504 ALT 31 -- AST 18 -- CO2 31.4 32.9* CL 101 104 GLU 228* 55* K 4.1 4.0 NA 137 139 BUN 46* 44* Intake/Output Summary (Last 24 hours) at 09/15/2024 1403 Last data filed at 09/15/2024 1136 Gross per 24 hour Intake 1270 ml Output 3100 ml Net -1830 ml Microbiology Results (last 14 days) Procedure Component Value Units Date/Time MRSA PCR nares Screening [[id number]] Collected: 09/07/24 0848 Order Status: Sent Lab Status: No result Specimen: NASAL CULTURE, RESPIRATORY W/ GRAM STAIN [[id number]] Collected: 09/05/24 0740 Order Status: Completed Lab Status: Preliminary result Updated: 09/08/24 0640 Specimen: TRACHEAL ASPIRATE SPEC DESCRIPTION TRACHEAL ASPIRATE SPECIAL REQUESTS NO SPECIAL REQUEST GRAM STAIN RESULT <10 EPITHELIAL CELLS PER LPF GRAM STAIN RESULT >25 NEUTROPHILS PER LPF GRAM STAIN RESULT NO ORGANISMS SEEN CULTURE RESULT NO GROWTH 3 DAYS Gastric PH [[id number]] Order Status: No result Lab Status: No result Specimen: GASTRIC FLUID CULTURE, BACTERIA BLOOD [[id number]] Collected: 09/03/24 1223 Order Status: Completed Lab Status: Preliminary result Updated: 09/07/241926 Specimen: BLOOD SPEC DESCRIPTION BLOOD SPECIAL REQUESTS NO SPECIAL REQUEST CULTURE RESULT NO GROWTH 4 DAYS CULTURE, URINE [[id number]] Collected: 09/01/24 1110 Order Status: Completed Lab Status: Final result Updated: 09/03/24 0835 Specimen: URINE, CLEAN CATCH SPEC DESCRIPTION URINE CLEAN CATCH SPECIAL REQUESTS NO SPECIAL REQUEST CULTURE RESULT NO GROWTH (< OR = 1,000 CFU/ML) CULTURE, BACTERIA BLOOD X2 [[id number]] Collected: 08/31/24 1034 Order Status: Completed Lab Status: Final result Updated: 09/06/24 0011 Specimen: BLOOD SPEC DESCRIPTION BLOOD SPECIAL REQUESTS NO SPECIAL REQUEST CULTURE RESULT NO GROWTH 5 DAYS Radiology MEDICATIONS Scheduled medications acetylcysteine 10 % 200 mg Nebulization 2 times daily allopurinol 200 mg Oral Daily aspirin 81 mg Oral Daily atorvastatin 80 mg Oral Nightly at bedtime bumetanide 2 mg Oral Daily clotrimazole-betamethasone Topical Q12H folic acid 1 mg Oral Daily insulin glargine 30 Units Subcutaneous Nightly at bedtime insulin lispro 0-6 Units Subcutaneous 4x Daily AC and at bedtime ipratropium-albuterol 3 mL Nebulization Q4H metoprolol succinate ER 12.5 mg Oral Daily nystatin 5 mL Oral 4x Daily nystatin Topical BID pregabalin 150 mg Oral BID senna-docusate 1 tablet Oral BID sertraline 50 mg Oral Daily traZODone 300 mg Oral Nightly at bedtime warfarin (COUMADIN) pharmacy to dose Oral See Admin Instructions warfarin 6 mg Oral Once Infusion PRN acetaminophen, albuterol, glucose, dextrose 10 % bolus, [DISCONTINUED] fentaNYL AND [DISCONTINUED] fentaNYL AND fentaNYL, glucagon, HYDROcodone- acetaminophen, HYDROmorphone, hydrOXYzine, naLOXone, ondansetron, polyethylene glycol Kelly Wilson MD 2:03 PM 09/15/2024 ROOM SUPERVISOR * Xiomy Ang, UNDERGROUND ROOF BOLTER - 09/15/2024 1:09 PM CST 09/15/24 1300 Home oxygen evaluation date and time Date of Evaluation 09/15/24 Evaluation Time 1115 Resting Oxygen Saturation Resting Oxygen Saturation on Oxygen 97 % Resting Oxygen Setting 3 Liters/minute Resting Saturation off Oxygen 94 % Exercise Oxygen Saturation Distance Walked doing bedside spirometry Home Oxygen Evaluation Comment Oxygen Evaluation Comment Patient has home oxygen 2L with activity but he normally doesn't wear it.Patient did well on room air during the bedside spirometry test. Recommend the patient wear 2L withambulation at the rehab facility. thanks Home Oxygen Evaluation Charge $ Home Oxygen Evaluation Charge Yes ROOM SUPERVISOR * Lakhwinder Howard, MARINE MAMMAL TRAINER - 09/15/2024 11:43 AM CST [facility] PROGRESS NOTE Reason for admission: CHF exacerbation (CMS/HCC HHS/HCC) [I50.9] Reason for consult: Acute hypoxic and hypercarbic respiratory failure ASSESSMENT AND PLAN Obie Sims is a 69-year-old male, with history of COPD (FEV1 50%), SHEELA not on CPAP, A-fib on Warfarin, HFrEF, CAD, aortic stenosis s/p bioprosthetic aortic valve replacement, PAD, DM2, CKD stage III, CVA, HTN, HLD, anxiety/depression, and RLS. No significant smoking history. Quit more than 40 years ago and was not a regular smoker. Admitted 08/31 after transfer from [facility] for CHF exacerbation, BRITTANY, and hyperkalemia. He initially presented to outside hospital after a fall, found to have rib fractures. Required emergent intubation for hypoxia 09/04 and transferred to ICU. Diuresed and treated for possible aspiration pneumonia. Extubated 09/06. Patient requiring BiPAP at night and intermittently throughout the day for hypercapnia. Will need arrangement for home NIV machine, for which [facility] was consulted. Active Problems # Acute hypoxic/hypercapnic respiratory failure # Acute on chronic heart failure with exacerbation # Pneumonia, completed antibiotics # COPD exacerbation # Hx SHEELA, not on CPAP Pertinent Workup CXR 09/09/24: Cardiomegaly with interval increase in pulmonary vascular congestion. Echo 08/31/24: Technically difficult. Mildly enlarged LV. EF 43%. Moderate- severely enlarged RV with severely depressed systolic function. RVSP 36. Moderate aortic valve stenosis. Mild TR. 08/31 Blood culture: no growth 09/01 Urine culture: no growth 09/03 Blood culture: no growth 09/05 Tracheal aspirate culture: no growth VBG 09/13 0458 (wore BiPAP 12/5 cwp all night): pH 7.29/pCO2 68.6 VBG 09/13 1300 (after 3 hours on BiPAP 12/5 cwp): pH 7.32/pCO2 63.4 VBG 09/14 0348 (on BiPAP 12/6 cwp): pH 7.34/pCO2 62.0 VBG 09/15 0504 (on 2L oxygen overnight): pH 7.38/pCO2 57.3 Overnight oximetry on 2L oxygen 09/14 - 09/15: 9 minutes 22 seconds of desaturation below 88%. Bedside spirometry 09/15/24: FEV1 0.72L(25%), FVC 0.95L(26%), ratio 0.75. Quality grade A. Consistent with airway restriction. Will need complete PFT after discharge. Previous pulmonary workup: - PFT 03/26/21: FEV1 1.42L(50%), FVC 2.11L(59%), ratio 0.67, TLC 76%, RV 101%, DLCO 41%. - Home sleep study 05/20/21: AHI 10. [facility] Pulmonology Recommendations - Patient will not be able to qualify for a home BiPAP machine while inpatient. His insurance will require an outpatient sleep study to be done. If he discharges to a swing bed unit or correction facility, he can continue to wear BiPAP 12/6 cwp, 35% FiO2 while there. - Recommend home oxygen evaluation prior to discharge. - Optimize patient's heart failure per cardiology. - Follow up with Dr. Saleh in [place] after discharge. Call [phone] to schedule appointment. Thank you for the consult. We will continue to follow. SUBJECTIVE Review of Systems Constitutional: Negative for chills and fever. Eyes: Negative for blurred vision. Respiratory: Positive for cough and sputum production. Negative for hemoptysis, shortness of breathand wheezing. Minimal shortness of breath with activity. Cardiovascular: Negative for chest pain and palpitations. Gastrointestinal: Negative for abdominal pain, constipation, diarrhea, nausea and vomiting. Genitourinary: Negative for dysuria. Neurological: Negative for dizziness and headaches. OBJECTIVE Physical Exam Constitutional: General: He is not in acute distress. Appearance: He is obese. HENT: Head: Normocephalic and atraumatic. Eyes: Extraocular Movements: Extraocular movements intact. Cardiovascular: Rate and Rhythm: Normal rate. Heart sounds: No murmur heard. Pulmonary: Effort: Pulmonary effort is normal. No respiratory distress. Breath sounds: Decreased breath sounds present. No wheezing, rhonchi or rales. Comments: On BiPAP 12/6 cwp with 35% FiO2. Abdominal: Palpations: Abdomen is soft. Tenderness: There is no abdominal tenderness. Musculoskeletal: Right lower leg: No edema. Left lower leg: No edema. Skin: General: Skin is warm and dry. Nails: There is no clubbing. Neurological: General: No focal deficit present. Mental Status: He is alert and oriented to person, place, and time. Psychiatric: Mood and Affect: Mood normal. Thought Content: Thought content normal. Recent Vitals: Filed Vitals: 09/14/24 2306 09/15/24 0511 09/15/24 0737 09/15/24 1136 BP: 120/68 (!) 149/72 133/62 131/77 Pulse: (!) 57 (!) 36 63 72 Resp: Temp: 96.4 ??F (35.8 ??C) 97.8 ??F (36.6 ??C) 98.4 ??F (36.9 ??C) TempSrc: Temporal Axillary Oral SpO2: 97% 99% 96% 94% Weight: Height: Medications: acetylcysteine 10 % 200 mg Nebulization 2 times daily allopurinol 200 mg Oral Daily aspirin 81 mg Oral Daily atorvastatin 80 mg Oral Nightly at bedtime bumetanide 2 mg Oral Daily clotrimazole-betamethasone Topical Q12H folic acid 1 mg Oral Daily insulin glargine 30 Units Subcutaneous Nightly at bedtime insulin lispro 0-6 Units Subcutaneous 4x Daily AC and at bedtime ipratropium-albuterol 3 mL Nebulization Q4H metoprolol succinate ER 12.5 mg Oral Daily nystatin 5 mL Oral 4x Daily nystatin Topical BID pregabalin 150 mg Oral BID senna-docusate 1 tablet Oral BID sertraline 50 mg Oral Daily traZODone 300 mg Oral Nightly at bedtime warfarin (COUMADIN) pharmacy to dose Oral See Admin Instructions warfarin 6 mg Oral Once PRN: acetaminophen, albuterol, glucose, dextrose 10 % bolus, [DISCONTINUED] fentaNYL AND [DISCONTINUED] fentaNYL AND fentaNYL, glucagon, HYDROcodone- acetaminophen, HYDROmorphone, hydrOXYzine, naLOXone, ondansetron, polyethylene glycol Labs: Recent Labs 09/13/24 0458 09/14/24 0348 09/15/24 0504 WBC -- 14.68* 11.65* HGB -- 10.9* 11.2* PLT -- 134* 133* GLU -- 228* 55* BUN -- 46* 44* CR -- 1.39* 1.24 NA -- 137 139 K -- 4.1 4.0 CL -- 101 104 CO2 -- 31.4 32.9* PHOS 3.1 2.4* 2.9 ALT -- 31 -- AST -- 18 -- Micro: Microbiology Results (last 14 days) Procedure Component Value Units Date/Time MRSA PCR nares Screening [[id number]] Collected: 09/07/24 0848 Order Status: Canceled Lab Status: No result Specimen: NASAL CULTURE, RESPIRATORY W/ GRAM STAIN [[id number]] Collected: 09/05/24 0740 Order Status: Completed Lab Status: Final result Updated: 09/10/24 1031 Specimen: TRACHEAL ASPIRATE SPEC DESCRIPTION TRACHEAL ASPIRATE SPECIAL REQUESTS NO SPECIAL REQUEST GRAM STAIN RESULT <10 EPITHELIAL CELLS PER LPF GRAM STAIN RESULT >25 NEUTROPHILS PER LPF GRAM STAIN RESULT NO ORGANISMS SEEN CULTURE RESULT NO GROWTH 5 DAYS Gastric PH [[id number]] Order Status: Canceled Lab Status: No result Specimen: GASTRIC FLUID CULTURE, BACTERIA BLOOD [[id number]] Collected: 09/03/24 1223 Order Status: Completed Lab Status: Final result Updated: 09/08/24 2136 Specimen: BLOOD SPEC DESCRIPTION BLOOD SPECIAL REQUESTS NO SPECIAL REQUEST CULTURE RESULT NO GROWTH 5 DAYS CULTURE, URINE [[id number]] Collected: 09/01/24 1110 Order Status: Completed Lab Status: Final result Updated: 09/03/24 0835 Specimen: URINE, CLEAN CATCH SPEC DESCRIPTION URINE CLEAN CATCH SPECIAL REQUESTS NO SPECIAL REQUEST CULTURE RESULT NO GROWTH (< OR = 1,000 CFU/ML) CULTURE, BACTERIA BLOOD X2 [[id number]] Collected: 08/31/24 1034 Order Status: Completed Lab Status: Final result Updated: 09/06/24 0011 Specimen: BLOOD SPEC DESCRIPTION BLOOD SPECIAL REQUESTS NO SPECIAL REQUEST CULTURE RESULT NO GROWTH 5 DAYS [facility] Pulmonology 09/15/2024 Cosigned by Broderick Cheng MD at 09/15/2024 8:11 PM WAX ROOM SUPERVISOR ROOM SUPERVISOR ROOM SUPERVISOR ROOM SUPERVISOR Associated attestation - Broderick Cheng MD - 09/15/2024 8:11 PM WAX ROOM SUPERVISOR Pulmonary Attending: I rounded with the analytics architect, DEFENSE ATTORNEY and IM resident on the consult service. I interviewed and examined the pt. I reviewed the pt's labs and recent chest imaging. I read the resident's note and I agree with the history, PE finding and recommendations Time: 30 min. * JAKE Lizama - 09/15/2024 10:41 AM CST OT Treatment Discharge Recommendation: OT/PT at SNF Activity Recommendation for pediatric assistant: up with 1, gait belt, 2ww for transfers if ambulating short distances have a 2nd person for safety 09/15/24 1017 Therapy Visit Reason for admission Pt presents with BRITTANY, hyperkalemia, and acute on chronic systolic CHF. Of notept with recent GLF 08/18 with right 7-8 rib fxs. Pt with respiratory failure and COPD exacerbation 09/03 and required intubation. Pt extubated 09/06. 09/11 pt with 11 beats of v tach. ..........PMH: afib, LV dysfunction, CAD, hypertension aortic stenosis, chronic anticoagulation, s/p aortic valve replacement, varicose veins, claudication, nstemi, pulmonary hypertension, CHF, copd, obstructive sleep apnea, asthma, hyperlipidemia, diabetes mellitus type 2, TIA, arthritis, carotid disease, rib fractures, chronic venous insufficiency...............Therapy orders: eval and treat. Ordering Provider MD Herman Verified Two Patient Identifiers Yes Patient consents to therapy Yes Acute Inpatient OT Time Calculation OT Start Time 1017 Precautions General Precautions Bed Alarm;Chair Alarm;Fall Risk;Supplemental oxygen Instructed on Precautions Yes;Verbalizes understanding;Needs reinforcement and education Other telemetry, purewick, 3L O2 NC Prior Function PLOF Comments Per Eval: Pt lives with his [...] riser. Since last admission patient reports he hasbeen working with home health PT and was about to be discharged from their services secondary to good progress. Does not have 15/[address] Subjective Subjective RN ok'd therapy session at this time and pt agreeable to participation. Pt seen in room 516 and gait belt used during session for transfers/mobility. Pt seated in chair upon arrival and departure with alarm in place and activated. Pain Pain No Activity Tolerance Activity Tolerance Comments Pt tolerance continues to slowly improve. Cognition Overall Cognitive Status WFL Orientation Level Oriented X4 Following Commands Follows one step commands without difficulty ADL Grooming Assistance Stand by;Sitting in chair Grooming Deficit Wash/dry face Grooming Comment following setup. LE Dressing Assistance Maximal;Sitting in chair LE Dressing Deficit Don/doff R sock;Don/doff L sock Toileting Assistance Maximal Toileting Deficit Perineal hygiene Toileting Comment Pt reported that he has difficulty reaching to perform posterior toilet hygiene at home and has a toilet aid that he has just started using and needs to get used to. He required max A for task this date while standing at the toilet. Functional Transfers Sit to Stand Min assist (cues to bring feet under him and push up from chair) Toilet Transfers Grab bars;Min assist Functional Mobility Pt performed functional mobility in room/restroom with use of 2ww and CGA mocking household distances. Pt fatigued quickly with activity. He ambulates in a flexed position. Cues given to correct Balance Sitting - Static Independent Sitting - Dynamic SBA Standing - Static CGA;Support of both upper extremities Standing - Dynamic CGA;Support of both upper extremities Other (Comment) at risk for falls due to BLE weakness, quick to fatigue, and decreased insight intohis deficits. OT Assessment OT Assessment Pt making progress toward OT goals at this time. Pt continues to be limited by weakness, fatigue, and deconditioning. Pt would continue to benefit from skilled OT in the acute setting and then SNF at d/c to improve transfers, mobility, activity tolerance, and ADL independence to maximize performance and ensure a safe d/c plan. Discharge Recommendation OT Recommendation OT at correction facility Plan Progress Slow progress, decreased activity tolerance OT - Next Appointment 09/15/24 If this is the last treatment note, it will serve as the discharge summary Yes End of Session End of Session Safety Chair alarm set/activated;Call light within reach;Nursing aware of session Education: Primary Learners Name: Obie Sims Primary Language of learner: Bangladeshi Patient was educated on transfers ADLs balance bed mobility therapy plan safety. Education was completed one to one this date. Preference of learning new concepts one to one Barriers to education this date were fatigue. Response to education this date needs follow up needs assistance. ROOM SUPERVISOR * Honey Whitmore RN - 09/15/2024 10:15 AM CST 09/15/24 1015 Interdisciplinary Group Conference Team Members Present Case/Care management;Nursing Patient Current Status Paient current status Inpatient Barriers to Discharge Inpatient Review Complex - Social and/or Medical follow up Overnight pulse ox DC Destination - Limited/No Availability Follow up PEnding SB referral Patient expects to be discharged to Patient expects to be discharged to: [facility]( SNF) ([facility] Swing referral) 0950: Per Joselin from [facility], she has not received therapy notes. Resent. 1200: Follow up with Joselin at [facility], still has not received therapy notes. Incorrect fax number. Resent. Follow up with Mariel at [facility] in [place]. They have not received referral. Re sent to new fax. 1440: Mariel from [facility] accepted, pending ins auth. Notified [facility] to rescind auth. Daughter, Bonnie notified. 1510: Per Memory from [facility] Assistants: November from [facility], and she said that they cannot cancel theauth. If a new auth is started for the new facility that will be fine and it won't be cancelled. Mariel from [place] will start auth. ROOM SUPERVISOR ROOM SUPERVISOR ROOM SUPERVISOR ROOM SUPERVISOR ROOM SUPERVISOR * Yanni Presley, AaliyahD, [facility] - 09/15/2024 9:55 AM CST Warfarin - Pharmacy Dosing Service Note Obie Sims is a 69-year-old male for which pharmacy has been consulted to dose warfarin for A.fib. Goal INR is 2-3. Warfarin Order Set Activated: Yes Warfarin Start Date: continuation from home Past Medical History: Diagnosis Date Abnormal ankle brachial index (STELLA) Acute on chronic heart failure, unspecified heart failure type ([facility]) Anxiety Aortic valve stenosis Arthritis Asthma, mild persistent ([facility]) 04/06/2021 Atrial fibrillation ([facility]) s/p PVI/[facility] 10/2015 Bilateral leg pain Carotid disease, bilateral ([facility]) CHF (congestive heart failure) ([facility]) Claudication ([facility]) COPD (chronic obstructive pulmonary disease) ([facility]) Coronary artery disease Diabetes mellitus, type II ([facility]) Edema 04/19/2018 2+ pitting History of blood transfusion Hyperlipidemia Hypertension LV dysfunction Non-pressure chronic ulcer of left calf limited to breakdown of skin ([facility]) 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 breakdown of skin ([facility]) Osteoarthritis PAD (peripheral artery disease) ([facility]) Pneumonia Restless leg syndrome S/P aortic valve replacement with bioprosthetic valve 2013 SOB (shortness of breath) Stroke ([facility]) Varicose veins of bilateral lower extremities with other complications Weight gain with edema Home warfarin dose: warfarin 2 mg po daily per med rec Bridging agent: none Vitamin K use: No; (if yes, indicate date, dose, and route) Diet: PO Recent Labs Lab 09/12/24 0312 09/14/24 0348 09/15/24 0504 HGB 10.8* 10.9* 11.2* HCT 35.6* 35.8* 37.1 PLT 129* 134* 133* AST -- 18 -- ALT -- 31 -- ALKP -- 114 -- ALB -- 2.5* -- Date INR Dose Received 08/28 5.4 per [facility] paperwork - 08/29 - - 08/30 2.7 2 mg at [facility] 08/31 1.8 - 09/01 1.6 2 mg 09/02 1.9 2 mg 09/03 2.6 hold 09/04 3.7 hold 09/05 2.2 2 mg 09/06 1.7 Missed dose as was npo 09/07 1.4 2 mg 09/08 1.8 1 mg 09/09 1.5 2 mg 09/10 1.3 2 mg 09/11 1.3 2 mg 09/12 1.4 2.5 mg 09/13 1.2 4 mg 09/14 1.3 4 mg 09/15 1.4 Drug interactions: Potential to increase INR: Potential to decrease INR: - Potential to increase the risk of bleeding: aspirin, sertraline Warfarin Sensitivity: high, based on the following risk factors: albumin < or = to 2.5, concomitant antiplatelet therapy, thrombocytopenia, age 66-79, 1 moderate drug interaction, and diagnosis ofheart failure. Hgb/Hct today are stable INR today subtherapeutic INR increasing slightly today, will increase dose again The plan is to give 6 mg tonight. Will recheck an INR in the morning to assist with subsequent dosing. Pharmacy will continue to monitor labs and notes daily, adjusting the dose as clinically appropriate. Thank you for the consult. Pharmacy to dose per Dr. Neftali Presley, PharmD, [facility] Phone number: [phone] 09/15/2024 9:55 AM ROOM SUPERVISOR * Tsering Estrada, UNDERGROUND ROOF BOLTER - 09/15/2024 7:45 AM CST Sales Route Driver Helper states the patient has a total of 9 minutes and 22 seconds of desaturations below 88% Sp02 during Overnight Pulse Oximetry study while on 2L. The patient needs an morning ABG to show correlation for C02 levels, a VBG will not work with insurance. Patient does have COPD, previous PFT from 2020 shows results. Patient has a previous sleep study in 2020 that shows Sleep Apnea and that CPAP should be tried. This may require the patient to have an outpatient split night sleep study to obtain aBIPAP. However,If the patient is going to a SNF facility then the doctors need to send a recommendation to the SNF for the patient to wear a BIPAP and the patient's current settings and oxygen demand. ROOM SUPERVISOR ROOM SUPERVISOR * Ludy Morrell MD - 09/15/2024 7:10 AM CST [facility] Nephrology Progress Note Obie Sims is a 69-year-old male patient. Brittany management HPI 69-year-old gentleman with past medical history significant for CKD stage III, atrial fibrillation,heart failure with reduced ejection fraction, coronary disease, aortic stenosis status post bioprosthetic aortic valve placement, pulmonary hypertension, COPD, obstructive sleep apnea, dyslipidemia, diabetes mellitus type 2, stroke, anxiety, hypertension, restless leg syndrome who presented due to BRITTANY and hyperkalemia. Patient had a fall on 08/18/2024, initially declined treatment but ultimately presented to outside ED 2 days ago with rib pain and knee pain. He also reported shortness of breath and lower extremity swelling. His creatinine was found to be 2 with potassium 5.9. Patient transferred to [facility] for BRITTANY and hyperkalemia management. Nephrology consulted to manage kidney diseas Subjective Doing well; reports no chest pain, no dyspnea, no urinary complaints Review Of Systems 12 point negative -General: Negative for fever, chills, malaise, or fatigue. -Eyes: Negative for eye pain, eye redness, eye discharge or itchiness. -ENT Negative for nasal congestion, nasal discharge, earache or sore throat. -Cardiovascular: Negative for chest pain, palpitation, lower Ext. edema or lightheadedness. -Respiratory: Negative for shortness of breath, wheezing, cough, or hemoptysis. -Gastrointestinal: Negative for abdominal pain, bloating, Nausea, vomiting, diarrhea, constipation,hematemesis, or hematochezia. -Genitourinary: Negative for dysuria, frequency, urgency, nocturia, polyuria, or hematuria. -Musculoskeletal: Negative for joint pain, muscle aches, back pain, joint swelling or stiffness. -Dermatological: no rash, pruritus or color changes. -Neurological: Negative for headache, confusion, dizziness, numbness, weakness, or visual problems. -Endocrine: Negative for night sweats or generalized weakness. -Hematologic: Negative for jaundice, easy bleeding, easy bruising, or blood clots. Current Facility-Administered Medications Medication Dose Route Frequency Provider Last Rate Last Admin acetaminophen (TYLENOL) tablet 650 mg 650 mg Oral Q4H PRN Keyona Miller MD acetylcysteine 10 % (MUCOMYST) inhalation solution 200 mg 200 mg Nebulization 2 times daily Juanpablo Herman MD 200 mg at 09/14/242008 albuterol (PROVENTIL) (2.5 MG/3ML) 0.083% nebulizer solution 2.5 mg 2.5 mg Nebulization Q2H PRN Keyona Miller MD 2.5 mg at 09/04/24 0724 allopurinol (ZYLOPRIM) tablet 200 mg 200 mg Oral Daily Keyona Miller MD 200 mg at 09/14/24 0950 aspirin chewable tablet 81 mg 81 mg Oral Daily Keyona Miller MD 81 mg at 09/14/24 0950 atorvastatin (LIPITOR) tablet 80 mg 80 mg Oral Nightly at bedtime Keyona Miller MD 80mg at 09/14/24 2111 bumetanide (BUMEX) tablet 2 mg 2 mg Oral Daily Juanpablo Herman MD 2 mg at 09/14/24 0950 clotrimazole-betamethasone (LOTRISONE) cream Topical Q12H Nikolas Jiménez MD Given at 09/14/24 2112 dextrose (GLUTOSE) 40 % oral gel 37.5-75 g 15-30 g of dextrose Oral PRN Keyona Miller MD dextrose 10 % bolus infusion 125-250 mL 125-250 mL Intravenous PRN Keyona Miller MD Stopped at 09/06/24 1640 fentaNYL (SUBLIMAZE) injection 25 mcg 25 mcg Intravenous Q10 Min PRN Keyona Miller MD folic acid (FOLVITE) tablet 1 mg 1 mg Oral Daily Keyona Miller MD 1 mg at 09/14/24 0950 glucagon injection 1 mg 1 mg Intramuscular Once PRN Keyona Miller MD HYDROcodone-acetaminophen (NORCO) 5-325 MG tablet 1 tablet 1 tablet Oral Q4H PRN Keyona Miller MD 1 tablet at 09/15/24 0120 HYDROmorphone (DILAUDID) injection 0.2 mg 0.2 mg Intravenous Q2H PRN Nikolas Jiménez MD 0.2 mg at 09/04/24 1620 hydrOXYzine (ATARAX) tablet 50 mg 50 mg Per NG Tube TID PRN Keyona Miller MD insulin glargine (LANTUS) injection 40 Units 40 Units Subcutaneous Nightly at bedtime Keyona Abarca MD 40 Units at 09/14/24 2110 insulin lispro (HUMALOG/ADMELOG) injection 0-6 Units 0-6 Units Subcutaneous 4x Daily AC and at bedtime Juanpablo Herman MD 2 Units at 09/14/24 2112 ipratropium-albuterol (DUONEB) 0.5-2.5 (3) MG/3ML nebulizer solution 3 mL 3 mL Nebulization Q4H Juanpablo Herman MD 3 mL at 09/15/24 0522 metoprolol succinate ER (TOPROL-XL) 24 hr tablet 12.5 mg 12.5 mg Oral Daily Juanpablo Herman MD 12.5 mg at 09/14/24 0950 naLOXone (NARCAN) injection 0.4 mg 0.4 mg Intravenous PRN Nikolas Jiménez MD nystatin (MYCOSTATIN) 287641 UNIT/ML suspension 5 mL 5 mL Oral 4x Daily Nikolas Jiménez MD 5 mL at 09/14/242112 nystatin (MYCOSTATIN) powder Topical BID Nikolas Jiménez MD Given at 09/14/242112 ondansetron (ZOFRAN) injection 4 mg 4 mg Intravenous Q8H PRN Nikolas Jiménez MD polyethylene glycol (GLYCOLAX) packet 17 g 17 g Oral Daily PRN Keyona Miller MD pregabalin (LYRICA) capsule 150 mg 150 mg Oral BID Keyona Miller MD 150 mg at 09/14/242110 senna-docusate (SENOKOT-S) 8.6-50 MG tablet 1 tablet 1 tablet Oral BID Keyona Miller MD 1 tablet at 09/14/242110 sertraline (ZOLOFT) tablet 50 mg 50 mg Oral Daily Keyona Miller MD 50 mg at 09/14/2450 traZODone (DESYREL) tablet 300 mg 300 mg Oral Nightly at bedtime Juanpablo Paresh Herman MD 300 mg at 09/14/242110 warfarin (COUMADIN) pharmacy to dose placeholder Oral See Admin Instructions Nikolas Jiménez MD Review of patient's allergies indicates: No Known Allergies Principal Problem: CHF exacerbation ([facility]) SNOMED CT(R): ACUTE EXACERBATION OF CHRONIC CONGESTIVE HEART FAILURE Filed Vitals: 09/14/24 1702 09/14/24 2046 09/14/24 2306 09/15/24 0511 BP: 120/64 131/77 120/68 (!) 149/72 Pulse: 80 76 (!) 57 (!) 36 Resp: 18 Temp: 98.2 ??F (36.8 ??C) 101.1 ??F (38.4 ??C) 96.4 ??F (35.8 ??C) TempSrc: Temporal Temporal Temporal SpO2: 100% 100% 97% 99% Weight: Height: Last 3 Recorded Weights 09/13/24 0500 09/14/24 0500 09/14/24 0900 Weight: 92.6 kg (204 lb 2.3 oz) 97.5 kg (214 lb 15.2 oz) 100.7 kg (222 lb 0.1 oz) Intake/Output Summary (Last 24 hours) at 09/15/2024 0710 Last data filed at 09/14/2024 2200 Gross per 24 hour Intake 960 ml Output 2900 ml Net -1940 ml Physical Exam: Awake. No distress eating breakfast -GENERAL: No acute distress, breathing comfortably on room air. -EYES: Extraocular movements intact -ENT: Neck supple, Septum is midline. -LUNG: Clear to auscultation bilaterally, No wheezes, No crackles -CVS: Regular rate rhythm, S1 and S2 normal, No murmurs, -ABDOMEN: Soft, nondistended, Nontender, Bowel sounds observed -EXT: no lower Ext edema. -NEURO: Alert, awake, oriented x3, No gross neuro deficit -SKIN: Skin color, texture, turgor normal. No rashes or lesions LABs Recent Labs Lab 09/09/24 0610 09/10/24 0549 09/11/24 0358 09/12/24 0312 09/13/24 0458 09/14/24 0348 09/15/24 0504 NA 149* 147* 140 137 -- 137 139 K 3.6 3.6 3.5 4.3 -- 4.1 4.0 CL 115 114 104 102 -- 101 104 CO2 29.3 28.8 31.7 31.9 -- 31.4 32.9* AGAP 4.7 4.2 4.3 3.1 -- 4.6 2.1 BUN 36* 37* 36* 39* -- 46* 44* CR 1.66* 1.52* 1.52* 1.37* -- 1.39* 1.24 GLU 277* 330* 224* 304* -- 228* 55* CA 9.2 8.9 8.6 8.6 -- 8.6 8.5 MAGNESIUM 3.1* 2.9* 2.4 2.7* 2.9* 2.7* 2.4 PHOS 3.0 2.3* 3.1 2.9 3.1 2.4* 2.9 Recent Labs Lab 09/09/24 0610 09/10/24 0547 09/11/24 0358 09/12/24 0312 09/14/24 0348 09/15/24 0504 WBC 12.18* 11.75* 13.97* 13.55* 14.68* 11.65* RBC 4.08* 4.07* 3.68* 3.75* 3.77* 3.90* HGB 11.7* 11.7* 10.4* 10.8* 10.9* 11.2* HCT 40.1 39.8 34.9* 35.6* 35.8* 37.1 MCV 98.3 97.8 94.8 94.9 95.0 95.1 MCH 28.7 28.7 28.3 28.8 28.9 28.7 MCHC 29.2* 29.4* 29.8* 30.3* 30.4* 30.2* PLT 102* 107* 103* 129* 134* 133* RDW 15.8* 15.8* 15.5* 15.4* 15.3* 15.6* MPV 13.2* 14.3* 13.8* 13.9* 14.0* 13.9* Assessment/Plan: 69-year-old gentleman with past medical history significant for CKD stage III, atrial fibrillation,heart failure with reduced ejection fraction, coronary disease, aortic stenosis status post bioprosthetic aortic valve placement, pulmonary hypertension, COPD, obstructive sleep apnea, dyslipidemia, diabetes mellitus type 2, stroke, anxiety, hypertension, restless leg syndrome who presented due to BRITTANY and hyperkalemia. Patient had a fall on 08/18/2024, initially declined treatment but ultimately presented to outside ED 2 days ago with rib pain and knee pain. He also reported shortness of breath and lower extremity swelling. His creatinine was found to be 2 with potassium 5.9. Patient transferred to [facility] for BRITTANY and hyperkalemia management. BRITTANY on CKD stage III -Baseline creatinine 1.3-1.5. Patient also follows with Dr. Beltran -At outside hospital creatinine was 2.0, patient received fluids and creatinine increased to 2.8. This is likely related to hemodynamics/fluid overload. -Renal ultrasound showed suboptimal visualization of right kidney. No right sided hydronephrosis. No increase echogenicity. Right kidney 11.6 cm. Left kidney was not seen. -CPK normal, urinalysis 3+ blood and a mild protein WBCs 27 RBCs greater than 182, urine sodium of 88. BRITTANY serology negative -Initial chest x-ray showed pulmonary vascular congestion and interstitial edema -s/p aggressive IV diuresis. Net -20 liter uf and weight down 22 kilos -Most recent creatinine 1.24 today -Bumex oral 2 mg -Strict I's/O, avoid nephrotoxins 2. HTN. -Blood pressure stable -Continue to avoid STEVIE/ARB 3. Anemia of chronic disease. Hemoglobin stable 4. Electrolytes. -sodium is stable. 5. Renal osteodystrophy. Calcium and phosphorus levels are okay 6. Disposition stable Thank you for allowing me to participate in the care of this patient. We will continue to follow this patient with you. Please contact us with further questions. LUDY MORRELL MD 09/15/2024 ROOM SUPERVISOR * Homero Marrero RN - 09/15/2024 5:52 AM CST Problem: Discharge Planning Goal: Knowledge [...] of new skin breakdown Outcome: Progressing Problem: Reduced risk for falls/injury Goal: Reduced Risk for Falls/Injury Outcome: Progressing Goal: Reduced Risk of Confusion (Acute vs Chronic) Outcome: Progressing Goal: Reduced Risk of Symptomatic Depression Outcome: Progressing Goal: Reduced Risk of Altered Elimination Outcome: Progressing Goal: Reduced Risk of Dizziness/Vertigo/Balance Outcome: Progressing Goal: Reduced Risk of Polypharmacy Outcome: Progressing Problem: Infection - Risk of, Urinary Catheter-Associated Urinary Tract Infection Goal: Absence of Urinary Catheter Associated Urinary Tract (UTI) Infection Signs and Symptoms Outcome: Progressing Problem: Swallowing Goal: STG - Pt will participate in Modified Barium Swallow Study to assess physiology and anatomy of swallow and to determine appropriate diet and/or rehab exercises Outcome: Progressing Problem: Infection - Risk of, Central Venous Catheter-Associated Bloodstream Infection Goal: Absence of Central Venous Catheter Associated Bloodstream Infection Signs and Symptoms Outcome: Progressing Problem: Swallowing Goal: STG - Pt will tolerate the least restrictive diet without clinical signs symptoms of aspiration Outcome: Progressing ROOM SUPERVISOR * Rosario Max, UNDERGROUND ROOF BOLTER - 09/14/2024 11:06 PM CSTSummary: Overnight Pulse Ox Placed pt on overnight pulse ox. Study to be done on 2L per order. Spo2 98% and HR 57. RN notified of overnight being placed on. ROOM SUPERVISOR * Micaela Ugarte, YANCI - 09/14/2024 3:45 PM CST PT Treatment Discharge Recommendation: OT/PT at SNF Activity Recommendation for pediatric assistant: up with assist of 1-2 and use of the 2ww to transfer to the commode or the recliner 09/14/24 1089 Therapy Visit Ordering Provider MD Virgil Adams RN ok'd therapy session. Patient was sitting up in the recliner upon arrival and is agreeable to session. He states his thighs are very sore and weak feeling but is motivated to work with therapy Reason for admission Pt presents with BRITTANY, hyperkalemia, and acute on chronic systolic CHF. Of notept with recent GLF 08/18 with right 7-8 rib fxs. Pt with respiratory failure and COPD exacerbation 09/03 and required intubation. Pt extubated 09/06. 09/11 pt with 11 beats of v tach. ..........PMH: afib, LV dysfunction, CAD, hypertension aortic stenosis, chronic anticoagulation, s/p aortic valve replacement, varicose veins, claudication, nstemi, pulmonary hypertension, CHF, copd, obstructive sleep apnea, asthma, hyperlipidemia, diabetes mellitus type 2, TIA, arthritis, carotid disease, rib fractures, chronic venous insufficiency...............Therapy orders: eval and treat. Verified Two Patient Identifiers Yes Patient consents to therapy Yes Acute Inpatient PT Time Calculation PT Start Time 1518 PT Stop Time 1545 PT Time Calculation (min) 27 min Precautions General Precautions Bed Alarm;Chair Alarm;Fall Risk;Supplemental oxygen Instructed on Precautions Yes;Verbalizes understanding;Needs reinforcement and education Other telemetry, purewick, 3L O2 NC Prior Function PLOF Comments Per Eval: Pt lives with his [...] riser. Since last admission patient reports he hasbeen working with home health PT and was about to be discharged from their services secondary to good progress. Does not have 24/[address]. Pain Pain Yes Pain Score Did not rate Location anterior thighs are sore and weak feeling after ambulating Interventions Range of motion;Re-direction;Re-positioning Activity Tolerance Limiting Factors to Endurance Acute deconditioning;Fatigue;Shortness of breath;Weakness Activity Tolerance Comments slowly improving Cognition Overall Cognitive Status WFL Arousal/Alertness Appropriate responses to stimuli Attention Span Appears intact Orientation Level Oriented X4 Following Commands Follows one step commands without difficulty Safety Judgment Decreased awareness of need for assistance Awareness of Errors Assistance required to identify errors made Bed Mobility Other (Comment) not tested TRANSFERS Sit to Stand Min assist Other (Comment) Patient rocks forward/backward to gain momentum before trying to stand and needed min assist each time. He performed x5 reps Gait Gait Assistance Contact guard assist;Min assist;With gait belt Assistive Device 2 Wheeled walker Distance Ambulated (ft) 22 ft (x2 reps with a chair following for safety) Other (Comment) Patient ambulated with decreased speed, decreaed step length, wide base of support and increased lateral sway, needing CGA and moments of min assist when he gets fatigued. Chair was following for safety Balance Sitting - Static Independent Sitting - Dynamic SBA Standing - Static CGA;Support of both upper extremities Standing - Dynamic CGA;Min Assist;Support of both upper extremities Other (Comment) at risk for falls due to BLE weakness, quick to fatigue, and decreased insight intohis deficits. Exercises Sitting LE Exercise Patient performed x15 reps of long arc quads, marching, hip abduction, hip rotation, and calf/toe raises. He also performed x10 reps of straight leg rises with physial assist. PT Assessment PT Assessment Patient is slowly improving his activity tolerance but is still very weak and deconditioned . He needed min assist for sit<>stand transfers and CGA/min assist for short straight line ambulation trials. He was able to ambulate 25 feet x2 with the 2ww and a chair following behind him for safety. He had multiple gait deviations that worsened as he fatigued. He started out needingCGA for ambulation but as the gait deviations worsened, he was more unsteady and needed min assist for safety. He would benefit from continued rehab at a SNF to continue to improve his strength, endurance, balance, and safety awareness. Will continue to progress while he is admitted Discharge Recommendation PT Recommendation PT at correction Facility Plan PT Treatments/Interventions Gait Training;Manual Therapy;Therapeutic Exercises;Therapeutic Activities;Neuromuscular re-education;Patient/family training Progress Progressing toward goals PT Frequency 5 times/week PT - Next Appointment 09/14/24 If this is the last treatment note,it will serve as the discharge summary Yes End of Session End of Session Safety Chair alarm set/activated;Call light within reach;Nursing aware of session;Transfer status education End of Session Comment sitting up in the recliner with legs elevated, alarm activated under him, and all needs within reach. Education: Primary Learners Name: Obie Sims Primary Language of learner: Bangladeshi Patient was educated on exercises transfers balance therapy plan gait safety. Education was completed one to one verbal hands-on demonstration this date. Preference of learning new concepts one to one verbal hands-on demonstration Barriers to education this date were fatigue physical impairment. Response to education this date verbalized understanding asks questions demos with verbal cues needs reinforcement needs follow up needs assistance. ROOM SUPERVISOR * Stephany Padilla RD - 09/14/2024 2:53 PM CST CLINICAL DIETITIAN ASSESSMENT NUTRITION ASSESSMENT Past Medical History: Diagnosis Date Abnormal ankle brachial index ([facility]) Acute on chronic heart failure, unspecified heart failure type ([facility]) Anxiety Aortic valve stenosis Arthritis Asthma, mild persistent ([facility]) 04/06/2021 Atrial fibrillation ([facility]) s/p PVI/[facility] 10/2015 Bilateral leg pain Carotid disease, bilateral ([facility]) CHF (congestive heart failure) ([facility]) Claudication ([facility]) COPD (chronic obstructive pulmonary disease) ([facility]) Coronary artery disease Diabetes mellitus, type II ([facility]) Edema 04/19/2018 2+ pitting History of blood transfusion Hyperlipidemia Hypertension LV dysfunction Non-pressure chronic ulcer of left calf limited to breakdown of skin ([facility]) 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 breakdown of skin ([facility]) Osteoarthritis PAD (peripheral artery disease) ([facility]) Pneumonia Restless leg syndrome S/P aortic valve replacement with bioprosthetic valve 2013 SOB (shortness of breath) Stroke ([facility]) Varicose veins of bilateral lower extremities with other complications Weight gain with edema Initial History (09/04/2024): Registered Dietitian (RD) completing an initial assessment secondary to physician consult for manage tube feedings. Patient is a 69-year-old male admitted secondary to CHF exacerbation ([facility]) [I50.9]. On admission, patient presented with BRITTANY on CKD III, acute respiratory failure with hypoxia. Concern for aspiration, CYTOLOGY TEACHER assessed patient who was found to have moderate oropharyngeal dysphagia per MOUSTAPHA on 09/01/24. CYTOLOGY TEACHER recommended soft and bite sized solids with moderately thickened liquids on 09/01/24. Nephrology assisting in BRITTANY on CKD management. Rapid response called for patient on 09/03/24 and patient was emergently intubated 2/2 hypoxemia and respiratory distress. Initiating tube feeds at trickle rate on this date per physician. Weight history (09/04/2024): Daughter at bedside reports patient has had no nutrition related changes in his weight over the past year, states weight fluctuates often due to fluid balance. Daughter reports patient's driest weight is around 210-220 lbs, however states patient's weight appears to bethe driest he's been over the past year. At bedside, patient weighs 195 lbs. No nutrition relatedconcerns regarding weight history at this time. Wt Readings from Last 7 Encounters: 09/03/24 95.3 kg (210 lb 1.6 oz) 08/24/24 106.6 kg (235 lb) 08/03/24 103 kg (227 lb) 05/02/24 99.6 kg (219 lb 9.6 oz) 04/17/24 97.6 kg (215 lb 3.2 oz) 04/03/24 97.5 kg (215 lb) 01/31/24 100.7 kg (222 lb) Diet history (09/04/2024): Patient lives with his daughter, who prepares his dinner for him every night such as pasta, pizza, white chicken, hot dogs/brats. Patient may prepare a light breakfast or lunch in the afternoon such as oatmeal or a cold sandwich. Patient snacks on pretzels, popcorn, and sometimes honey buns throughout the day. Patient drinks coffee all day. No nutrition related concerns at this time. RD(s) previously consulted for tube feed management but pt was extubated and started on PO diet. Magic cup BID started 09/[address] to support adequate PO intake intake. Interval History (09/14/2024): BRITTANY on CKD III improving. Still has some SOB, pending improvement prior to discharging. Discharge planning for rehab. Weakness noted. CYTOLOGY TEACHER on case for swallowing issues. Eating well per progress notes. 100% meal intakes per review of last 3 days intake documentation. Remote RD attempted to speak with pt via phone - unsuccessful. Communicated with MD via symplr regarding diet rx. Cardiorespiratory: on nasal cannula Neuro: WDL per EHR Edema: RLE and LLE trace edema noted per EHR 09/14 GI: abdomen non-tender with positive bowel sounds per stamp presser; last BM documented on 09/14 (details not specified for 09/14 BM) Chewing/swallowing problems: missing teeth/poor dentition per EHR, diet texture as per CYTOLOGY TEACHER Skin: per 09/13 plant engineering supervisor note - stage 2 pressure injury coccyx, periwound has improved, right lower leg site has improved, pressure injury at right and left ear from oxygen cannula tubing, unspecified right knee wound Nutrition-focused physical findings (09/04/24): Patient appears obese with no signs of muscle or fatwasting. Labs: Reviewed with the following abnormalities identified: POC glucose has improved since 09/12; most recent A1c above goal; Mg elevated, no on any supplementation at this time; phos decreased, slightly below goal, no dietary phos restriction; BUN, creatinine, eGFR noted - CKD Recent Labs Lab 09/12/24 2125 09/13/24 0633 09/13/24 1130 09/13/24 1552 09/13/24 2116 09/14/24 0533 09/14/24 1109 GLUCOSEPOC >500* 188* 210* 289* 286* 202* 121* Recent Labs Lab 09/11/24 0358 09/12/24 0312 09/13/24 0458 09/14/24 0348 NA 140 137 -- 137 K 3.5 4.3 -- 4.1 MAGNESIUM 2.4 2.7* 2.9* 2.7* PHOS 3.1 2.9 3.1 2.4* BUN 36* 39* -- 46* CR 1.52* 1.37* -- 1.39* GFREST 49* 55* -- 55* GLU 224* 304* -- 228* HGB A1C Date Value Ref Range Status 09/01/2024 7.0 (H) <5.7 % Final 02/17/2023 8.0 (H) <5.7 % Final Meds: Reviewed. No nutrition-related concerns noted at this time. acetylcysteine 10 % 200 mg Nebulization 2 times daily allopurinol 200 mg Oral Daily aspirin 81 mg Oral Daily atorvastatin 80 mg Oral Nightly at bedtime bumetanide 2 mg Oral Daily clotrimazole-betamethasone Topical Q12H folic acid 1 mg Oral Daily insulin glargine 40 Units Subcutaneous Nightly at bedtime insulin lispro 0-6 Units Subcutaneous 4x Daily AC and at bedtime ipratropium-albuterol 3 mL Nebulization Q4H metoprolol succinate ER 12.5 mg Oral Daily nystatin 5 mL Oral 4x Daily nystatin Topical BID pregabalin 150 mg Oral BID senna-docusate 1 tablet Oral BID sertraline 50 mg Oral Daily traZODone 300 mg Oral Nightly at bedtime warfarin (COUMADIN) pharmacy to dose Oral See Admin Instructions warfarin 4 mg Oral Once Anthropometrics: Admission weight: 167.6 kg (Date: 109.8; Method: Bed) 08/31/24 0947 09/02/24 0500 09/03/24 0423 09/04/24 1100 Weight: 109.8 kg (242 lb 1 oz) 100.2 kg (220 lb 14.4 oz) 95.3 kg (210 lb 1.6 oz) 88.8 kg (195 lb 12.3 oz) Last 5 Recorded Weights 09/11/24 0526 09/12/24 0500 09/13/24 0500 09/14/24 0500 Weight: 89.7 kg (197 lb 12 oz) 92.5 kg (203 lb 14.8 oz) 92.6 kg (204 lb 2.3 oz) 97.5 kg (214 lb 15.2 oz) 09/14/24 0900 Weight: 100.7 kg (222 lb 0.1 oz) Weight status: documented wts showing trend back up but weight not correlating with output per nephrology progress note today, question accuracy of trend. Possibly some scale variation, as prior to today, most wts indicated bed scale as method, today's wt (09/14) indicates standing as method. Overall, wts have remained consistent with usual range, however. See wt hx above. Height: 167.6 cm Actual Body Weight (ABW): 100.7 kg (standing) per documentation [place] Body Weight (IBW): 64.4 kg (ABW is 156% of IBW) Dosing Weight (DW): 88.8 kg (likely driest wt during hospitalization) Body Mass Index (BMI): 35.83 kg/m?? (Obesity Class II) Estimated Nutrient Needs: Calories: 5051-0107 kcal/day based on [place] Jeor - 30 kcal/kg ideal body wt Protein: 80-115 gm/day based on .9-1.3 gm/kg, using DW (Considering CKD, wound, CHF, etc) Carbohydrate: 200 gm/day based on 50% of total kcal from carbohydrate Fluid: 6886-5932 mL/day based on 1 mL/kcal Current diet order: Dietary nutrition supplements Diet Dysphagia (IDDSI) 5-MINCED AND MOIST; 2-Mildly Thick; Not appropriate; 2 Grams K+ (Low) Current diet appropriate? Yes; per CYTOLOGY TEACHER and considering recent hyperkalemia Current intake sufficient to meet nutritional needs? Yes; Based on 3-day review of PO intake per EHR and [employer], patient consumed an average of 1974 kcal/day (100% of estimated needs) and 85 gm/dayprotein (100% of estimated needs). Fluid intake appears adequate for hydration. Pain affecting PO intake? Unable to discuss with pt at this time, but not likely per chart review Nutrition Education: unable to assess education needs at this time NUTRITION DIAGNOSIS Inadequate oral intake related to decreased ability to consume sufficient nutrients by mouth as evidenced by oral diet meeting <25 % of estimated needs due to recent mechanical intubation. - likely resolved with previous extubation and recent PO intake but continue to monitor for consistency NUTRITION INTERVENTION Nutrition prescription: dysphagia diet as per CYTOLOGY TEACHER + 2gm Na and 60 g/meal carb + Magic Cup once daily Plan: 1. Continue dysphagia diet as tolerated with food/fluid consistency per CYTOLOGY TEACHER recommendation. Change therapeutic diet modifiers to 2g Na and 60 g carb/meal and discontinuing 2g K modifier. MD storey symplr. Will change today. 2. Continue magic cup but decrease to daily with lunch. 3. Weigh patient at least three times weekly. Discharge nutrition plan: Discharge needs assessed. Likely recommend diabetic/heart healthy diet and diet texture as per CYTOLOGY TEACHER. Will provide/update discharge instructions as needed. MONITORING/EVALUATION 09/04/2024 Goals: 1. TF will be infusing per RD recommendation at follow up. - discontinued as pt now on PO diet 09/14/2024 Goals: 1. PO intake will meet at least 90% of estimated kcal/protein needs based on 3- day average intake per review of EHR and [employer]ining at follow up. 2. Weight stable within 2% of dry weight (88.8 kg) at follow up. STEPHANY PADILLA RD, LDN ROOM SUPERVISOR ROOM SUPERVISOR * Kelly Wilson MD - 09/14/2024 1:38 PM CST Images from the original note were not included. [employer] Hospitalist Progress note Chief Complain: Respiratory failure ASSESSMENT /PLAN: Obie Sims is an 69-year-old male with a past medical history of CKD stage III, atrial fibrillation on warfarin, heart failure with reduced ejection fraction, coronary artery disease, aortic stenosis status post bioprosthetic aortic valve replacement, pulmonary hypertension, COPD/asthma, obstructive sleep apnea, hyperlipidemia, diabetes mellitus type 2, CVA, carotid disease, anxiety/depression, hypertension, PAD, and RLS. He was transferred to [facility] with BRITTANY and hyperkalemia. During this hospitalization patient developed worsening hypoxic respiratory failure requiring intubation, transferred to ICU. In ICU he was treated with IV Lasix drip and also treated for possible aspiration pneumonia. Now extubated, transferred out of ICU ON 09/07/2023 Acute on chronic heart failure with reduced ejection fraction Anasarca Pulmonary hypertension Valvular heart disease Acute respiratory failure with hypoxia/hypercarbia -Echocardiogram from February 2024 reveals an ejection fraction of 40 to 45% with bioprosthetic aortic valve, no central or periprosthetic aortic regurgitation, mild mitral regurgitation, and mild tricuspid regurgitation. Worsening hypoxic respiratory failure requiring ICU admission, intubation -Strict intake and output with daily weights. Monitor renal functions -Holding Entresto in light of BRITTANY. Will resume [id number] dose -[facility] nephrology consulted. Nephrology dosing diuretics as and when needed Cardiology following, appreciate recommendations- Continue BiPAP at night for hypercapnic respiratory failure. Patient will need Arranged at rehab Patient will need a BiPAP arrangement at facility, pulmonary saw. Appreciate assistance Creatinine improving monitor Monitor respiratory status closely Pneumonia-HCAP versus aspiration Completed antibiotic course. Treated with Zosyn Encourage incentive spirometry Supplemental oxygen as needed BRITTANY on CKD stage III improving Hyperkalemia, resolved Hypernatremia Sodium improving Monitor renal functions, nephrology following Renal functions improving Will discuss with nephrology, started diuretics as tolerated Ground-level fall Rib fractures Generalized weakness -CT of the chest shows acute fractures of the seventh and eighth right ribs. -PT/OT consult. -Pain control. -Incentive spirometer. Concern for pneumonia probably HCAP versus aspiration Completed antibiotic course hematuria -UA negative. -Likely due to traumatic Oneill insertion and/or trauma to Oneill in setting of supratherapeutic INR.Initial UA with no RBCs. Resolved, monitor Atrial fibrillation Supratherapeutic INR, resolved Nonsustained ventricular tachycardia -INR was 5.4 on presentation. -Continue beta-kim for rate control. -Pharmacy consulted for Coumadin dosing. Monitor INR -Monitor telemetry. nonsustained ventricular tachycardia Continue small dose of beta-kim Continue current regimen, cardiology following. Appreciate cardiology Diabetes mellitus type 2 -Continue Jardiance. Continue sliding scale insulin and Lantus as indicated Coronary artery disease Hypertension Hyperlipidemia -Heart catheterization from 2020 revealed a 60% proximal LAD stenosis, 50% ostial RCA stenosis, bioprosthetic aortic valve without aortic regurgitation, and severe pulmonary hypertension. Will add small dose of beta-blockers, continue statins -Monitor telemetry. COPD/asthma overlap syndrome Hypercarbic respiratory failure-rate COPD exacerbation Continue bronchodilators. prednisone 40 mg daily-total 5 days Completed antibiotic therapy CVA Carotid disease PAD -Continue aspirin and statin. Body mass index is 35.83 kg/m??. DVT Prophylaxis:on warfarin Code Status: DNR Not Medically Ready/Awaiting Clinical Improvement Therapy recommending rehab placement case management involved discharge planning awaiting insuranceapproval Anticipate discharge to help in 1 to 2 days time once respiratory shortness improved and remained stable SUBJECTIVE Patient seen and examined. Alert and oriented to time, place and person. Does not report any acute concerns. Using oxygen via nasal cannula OBJECTIVE Blood pressure 108/65, pulse 70, temperature 98.6 ??F (37 ??C), temperature source Oral, resp. rate20, height 1.676 m (5' 6 ), weight 100.7 kg (222 lb 0.1 oz), SpO2 97%. Wt Readings from Last 3 Encounters: 09/14/24 100.7 kg (222 lb 0.1 oz) 08/24/24 106.6 kg (235 lb) 08/03/24 103 kg (227 lb) Review of Systems All other systems reviewed and are negative. Physical Exam Constitutional: Appearance: He is well-developed. HENT: Head: Normocephalic and atraumatic. Eyes: Pupils: Pupils are equal, round, and reactive to light. Cardiovascular: Rate and Rhythm: Normal rate and regular rhythm. Heart sounds: No murmur heard. No friction rub. Pulmonary: Breath sounds: No wheezing or rales. Chest: Chest wall: No tenderness. Abdominal: General: Bowel sounds are normal. Palpations: Abdomen is soft. Tenderness: There is no abdominal tenderness. There is no guarding or rebound. Musculoskeletal: General: Normal range of motion. Cervical back: Normal range of motion and neck supple. Skin: General: Skin is warm and dry. Findings: No rash. Neurological: Mental Status: He is alert and oriented to person, place, and time. LABS: Recent Labs 09/12/2431109/14/24347 WBC 13.55* 14.68* HGB 10.8* 10.9* HCT 35.6* 35.8* MCV 94.9 95.0 PLT 129* 134* RBC 3.75* 3.77* Recent Labs 09/12/2431109/14/24347 ALT -- 31 AST -- 18 CO2 31.9 31.4 CL 102 101 GLU 304* 228* K 4.3 4.1 NA 137 137 BUN 39* 46* Intake/Output Summary (Last 24 hours) at 09/14/2024 1338 Last data filed at 09/14/2024 0900 Gross per 24 hour Intake 1240 ml Output 2900 ml Net -1660 ml Microbiology Results (last 14 days) Procedure Component Value Units Date/Time MRSA PCR nares Screening [[id number]] Collected: 09/07/24 0848 Order Status: Sent Lab Status: No result Specimen: NASAL CULTURE, RESPIRATORY W/ GRAM STAIN [[id number]] Collected: 09/05/24 0740 Order Status: Completed Lab Status: Preliminary result Updated: 09/08/24639 Specimen: TRACHEAL ASPIRATE SPEC DESCRIPTION TRACHEAL ASPIRATE SPECIAL REQUESTS NO SPECIAL REQUEST GRAM STAIN RESULT <10 EPITHELIAL CELLS PER LPF GRAM STAIN RESULT >25 NEUTROPHILS PER LPF GRAM STAIN RESULT NO ORGANISMS SEEN CULTURE RESULT NO GROWTH 3 DAYS Gastric PH [[id number]] Order Status: No result Lab Status: No result Specimen: GASTRIC FLUID CULTURE, BACTERIA BLOOD [[id number]] Collected: 09/03/24 1223 Order Status: Completed Lab Status: Preliminary result Updated: 09/07/24 1927 Specimen: BLOOD SPEC DESCRIPTION BLOOD SPECIAL REQUESTS NO SPECIAL REQUEST CULTURE RESULT NO GROWTH 4 DAYS CULTURE, URINE [[id number]] Collected: 09/01/24 1110 Order Status: Completed Lab Status: Final result Updated: 09/03/24 0835 Specimen: URINE, CLEAN CATCH SPEC DESCRIPTION URINE CLEAN CATCH SPECIAL REQUESTS NO SPECIAL REQUEST CULTURE RESULT NO GROWTH (< OR = 1,000 CFU/ML) CULTURE, BACTERIA BLOOD X2 [[id number]] Collected: 08/31/24 1034 Order Status: Completed Lab Status: Final result Updated: 09/06/24 0011 Specimen: BLOOD SPEC DESCRIPTION BLOOD SPECIAL REQUESTS NO SPECIAL REQUEST CULTURE RESULT NO GROWTH 5 DAYS Radiology MEDICATIONS Scheduled medications acetylcysteine 10 % 200 mg Nebulization 2 times daily allopurinol 200 mg Oral Daily aspirin 81 mg Oral Daily atorvastatin 80 mg Oral Nightly at bedtime bumetanide 2 mg Oral Daily clotrimazole-betamethasone Topical Q12H folic acid 1 mg Oral Daily insulin glargine 40 Units Subcutaneous Nightly at bedtime insulin lispro 0-6 Units Subcutaneous 4x Daily AC and at bedtime ipratropium-albuterol 3 mL Nebulization Q4H metoprolol succinate ER 12.5 mg Oral Daily nystatin 5 mL Oral 4x Daily nystatin Topical BID pregabalin 150 mg Oral BID senna-docusate 1 tablet Oral BID sertraline 50 mg Oral Daily traZODone 300 mg Oral Nightly at bedtime warfarin (COUMADIN) pharmacy to dose Oral See Admin Instructions warfarin 4 mg Oral Once Infusion PRN acetaminophen, albuterol, glucose, dextrose 10 % bolus, [DISCONTINUED] fentaNYL AND [DISCONTINUED] fentaNYL AND fentaNYL, glucagon, HYDROcodone- acetaminophen, HYDROmorphone, hydrOXYzine, naLOXone, ondansetron, polyethylene glycol Kelly Wilson MD 1:38 PM 09/14/2024 ROOM SUPERVISOR * Aaliyah BartonD, [facility] - 09/14/2024 11:09 AM CST Warfarin - Pharmacy Dosing Service Note Obie Sims is a 69-year-old male for which pharmacy has been consulted to dose warfarin for A.fib. Goal INR is 2-3. Warfarin Order Set Activated: Yes Warfarin Start Date: continuation from home Past Medical History: Diagnosis Date Abnormal ankle brachial index ([facility]) Acute on chronic heart failure, unspecified heart failure type ([facility]) Anxiety Aortic valve stenosis Arthritis Asthma, mild persistent ([facility]) 04/06/2021 Atrial fibrillation ([facility]) s/p PVI/[facility] 10/2015 Bilateral leg pain Carotid disease, bilateral ([facility]) CHF (congestive heart failure) ([facility]) Claudication ([facility]) COPD (chronic obstructive pulmonary disease) ([facility]) Coronary artery disease Diabetes mellitus, type II ([facility]) Edema 04/19/2018 2+ pitting History of blood transfusion Hyperlipidemia Hypertension LV dysfunction Non-pressure chronic ulcer of left calf limited to breakdown of skin ([facility]) 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 breakdown of skin ([facility]) Osteoarthritis PAD (peripheral artery disease) ([facility]) Pneumonia Restless leg syndrome S/P aortic valve replacement with bioprosthetic valve 2013 SOB (shortness of breath) Stroke ([facility]) Varicose veins of bilateral lower extremities with other complications Weight gain with edema Home warfarin dose: warfarin 2 mg po daily per med rec Bridging agent: none Vitamin K use: No; (if yes, indicate date, dose, and route) Diet: PO Recent Labs Lab 09/11/24 0358 09/12/24 0312 09/14/24 0348 HGB 10.4* 10.8* 10.9* HCT 34.9* 35.6* 35.8* PLT 103* 129* 134* AST 22 -- 18 ALT 30 -- 31 ALKP 110 -- 114 ALB 2.4* -- 2.5* Date INR Dose Received 08/28 5.4 per [facility] paperwork - 08/29 - - 08/30 2.7 2 mg at [facility] 08/31 1.8 - 09/01 1.6 2 mg 09/02 1.9 2 mg 09/03 2.6 hold 09/04 3.7 hold 09/05 2.2 2 mg 09/06 1.7 Missed dose as was npo 09/07 1.4 2 mg 09/08 1.8 1 mg 09/09 1.5 2 mg 09/10 1.3 2 mg 09/11 1.3 2 mg 09/12 1.4 2.5 mg 09/13 1.2 4 mg 09/14 1.3 4 mg Drug interactions: Potential to increase INR: Potential to decrease INR: - Potential to increase the risk of bleeding: aspirin, sertraline Warfarin Sensitivity: high, based on the following risk factors: albumin < or = to 2.5, concomitant antiplatelet therapy, thrombocytopenia, age 66-79, 1 moderate drug interaction, and diagnosis ofheart failure. Hgb/Hct today are stable INR today subtherapeutic INR increasing slightly today, continue increased dose The plan is to give 4 mg tonight. Will recheck an INR in the morning to assist with subsequent dosing. Pharmacy will continue to monitor labs and notes daily, adjusting the dose as clinically appropriate. Thank you for the consult. Pharmacy to dose per Dr. Neftali Presley, AaliyhaD, [facility] Phone number: [phone] 09/14/2024 11:09 AM ROOM SUPERVISOR * Jacquelin Álvarez, [facility] - 09/14/2024 9:28 AM CST SPEECH THERAPY TREATMENT NOTE Patient Name: Obie Sims : 1955 Date of Session: 09/14/2024 Primary Diagnosis: CHF exacerbation ([facility]/HCC [facility]) Recommendations: 1.Minced and Moist / Mildly Thick Liquid diet 2.Aspiration precautions--upright with all PO intake, meds crushed in puree, oral care, alternate bite/sip, slow rate, double swallow with minced and moist PO 3.Continued ST services for dysphagia management SUBJECTIVE: Spoke with Orly MORRISSEY, who cleared pt to participate in ST tx. RN reported pt has been doing good and is waiting on a BiPap prior to d/c. Chart reviewed. Pt alert and agreeable to tx at this time. Pt reported he did not cough with meals this date. Pain Score: denied pain Location: Tolerable: Communication: verbal Patient Goal: eat cream of wheat Plan of Care Reviewed: yes OBJECTIVE: Skilled Interventions: Pt participated in swallowing tx. Pt consumed ~4 oz mildly thick liquid via cup sip, moderately thick liquid via cup sip x 1, ~1 oz puree via tsp, and minced and moist PO x 9 tsp. Pt demonstrated delayed cough x 1 following the swallow of mildly thick liquid via cup sip post 1st trial of minced and moist PO. No other overt s/s of aspiration at this time. Pt independently recalled and utilized safe swallowing strategies trained last session and current session. Pt recalled effortful swallow and completed x 5 repetitions given minimal cueing and moderately extended time. Pt benefited from occasional mildly thick liquid sips during pharyngeal strengthening exercises. Endurance/Vitals: WBC 14.68, increased from 09/12/24 No new imaging as of 09/09/24 Education Provided : CYTOLOGY TEACHER provided verbal education to pt re: role of CYTOLOGY TEACHER, tx rationale, MOUSTAPHA results, diet recommendations, safe swallowing strategies, pharyngeal strengthening, and POC. Pt v/u. ASSESSMENT Pt continues to present with oral and oropharyngeal dysphagia characterized by delayed cough x 1 following the swallow of mildly thick liquid via cup sip post 1st trial of minced and moistPO. Pt benefited from cueing to utilize double swallow with each bolus of minced and moist PO as ptdid not demonstrate any overt s/s of aspiration with minced and moist / mildly thick liquid trials with double swallow for minced and moist PO. Pt with consistent pharyngeal strengthening performanceas session. Pt independently utilized safe swallowing strategies by end of session with 100% accuracy. Recommend continued Minced and Moist / Mildly Thick Liquid diet with use of safe swallowing strat egies--upright with all PO intake, meds crushed in puree, oral care, alternate bite/sip, double swallow with minced and moist PO, and slow rate. Interdisciplinary Communication: Orly MORRISSEY Barriers/Safety: comorbidities Nursing Recommendations: n/a Upon completion of session patient disposition: pt was left sitting upright in chair with call light within reach. PLAN: ST to follow to monitor diet tolerance and continue pharyngeal strengthening with potential to trial soft and bite size PO given pt demonstrates increased pharyngeal strengthening repetitions. CURRENT DIET: mildly thick liquid / minced and moist CONSTANTIN Mckeon Time In: 1441 Time Out: 1459 ROOM SUPERVISOR * Noa Burns MD - 09/14/2024 9:03 AM CST [facility] Nephrology Progress Note Obie Sims is a 69-year-old male patient. Brittany management HPI 69-year-old gentleman with past medical history significant for CKD stage III, atrial fibrillation,heart failure with reduced ejection fraction, coronary disease, aortic stenosis status post bioprosthetic aortic valve placement, pulmonary hypertension, COPD, obstructive sleep apnea, dyslipidemia, diabetes mellitus type 2, stroke, anxiety, hypertension, restless leg syndrome who presented due to BRITTANY and hyperkalemia. Patient had a fall on 08/18/2024, initially declined treatment but ultimately presented to outside ED 2 days ago with rib pain and knee pain. He also reported shortness of breath and lower extremity swelling. His creatinine was found to be 2 with potassium 5.9. Patient transferred to [facility] for BRITTANY and hyperkalemia management. Nephrology consulted to manage kidney diseas Subjective Doing well; weight not correlating with output; denies sob or chest pain; very weak; ate well; has had bm Review Of Systems 12 point negative -General: Negative for fever, chills, malaise, or fatigue. -Eyes: Negative for eye pain, eye redness, eye discharge or itchiness. -ENT Negative for nasal congestion, nasal discharge, earache or sore throat. -Cardiovascular: Negative for chest pain, palpitation, lower Ext. edema or lightheadedness. -Respiratory: Negative for shortness of breath, wheezing, cough, or hemoptysis. -Gastrointestinal: Negative for abdominal pain, bloating, Nausea, vomiting, diarrhea, constipation,hematemesis, or hematochezia. -Genitourinary: Negative for dysuria, frequency, urgency, nocturia, polyuria, or hematuria. -Musculoskeletal: Negative for joint pain, muscle aches, back pain, joint swelling or stiffness. -Dermatological: no rash, pruritus or color changes. -Neurological: Negative for headache, confusion, dizziness, numbness, weakness, or visual problems. -Endocrine: Negative for night sweats or generalized weakness. -Hematologic: Negative for jaundice, easy bleeding, easy bruising, or blood clots. Current Facility-Administered Medications Medication Dose Route Frequency Provider Last Rate Last Admin acetaminophen (TYLENOL) tablet 650 mg 650 mg Oral Q4H PRN Keyona Miller MD acetylcysteine 10 % (MUCOMYST) inhalation solution 200 mg 200 mg Nebulization 2 times daily Juanpablo Herman MD 200 mg at 09/14/24 0648 albuterol (PROVENTIL) (2.5 MG/3ML) 0.083% nebulizer solution 2.5 mg 2.5 mg Nebulization Q2H PRN Keyona Miller MD 2.5 mg at 09/04/24 0724 allopurinol (ZYLOPRIM) tablet 200 mg 200 mg Oral Daily Keyona Miller MD 200 mg at 09/13/24 0903 aspirin chewable tablet 81 mg 81 mg Oral Daily Keyona Miller MD 81 mg at 09/13/24 0902 atorvastatin (LIPITOR) tablet 80 mg 80 mg Oral Nightly at bedtime Keyona Miller MD 80mg at 09/13/24 2104 bumetanide (BUMEX) tablet 2 mg 2 mg Oral Daily Juanpablo Herman MD 2 mg at 09/13/24 1747 clotrimazole-betamethasone (LOTRISONE) cream Topical Q12H Nikolas Jiménez MD Given at 09/13/24 210 dextrose (GLUTOSE) 40 % oral gel 37.5-75 g 15-30 g of dextrose Oral PRN Keyona Miller MD dextrose 10 % bolus infusion 125-250 mL 125-250 mL Intravenous PRN Keyona Miller MD Stopped at 09/06/24 1640 fentaNYL (SUBLIMAZE) injection 25 mcg 25 mcg Intravenous Q10 Min PRN Keyona Miller MD folic acid (FOLVITE) tablet 1 mg 1 mg Oral Daily Keyona Miller MD 1 mg at 09/13/24 0902 glucagon injection 1 mg 1 mg Intramuscular Once PRN Keyona Miller MD HYDROcodone-acetaminophen (NORCO) 5-325 MG tablet 1 tablet 1 tablet Oral Q4H PRN Keyona Miller MD 1 tablet at 09/12/24 2221 HYDROmorphone (DILAUDID) injection 0.2 mg 0.2 mg Intravenous Q2H PRN Nikolas Jiménez MD 0.2 mg at 09/04/24 1620 hydrOXYzine (ATARAX) tablet 50 mg 50 mg Per NG Tube TID PRN Keyona Miller MD insulin glargine (LANTUS) injection 40 Units 40 Units Subcutaneous Nightly at bedtime Keyona Abarca MD 40 Units at 09/13/24 2158 insulin lispro (HUMALOG/ADMELOG) injection 0-6 Units 0-6 Units Subcutaneous 4x Daily AC and at bedtime Juanpablo Herman MD 2 Units at 09/14/24 0601 ipratropium-albuterol (DUONEB) 0.5-2.5 (3) MG/3ML nebulizer solution 3 mL 3 mL Nebulization Q4H Juanpablo Herman MD 3 mL at 09/14/24 0648 metoprolol succinate ER (TOPROL-XL) 24 hr tablet 12.5 mg 12.5 mg Oral Daily Juanpablo Paresh Herman MD 12.5 mg at 09/13/24 0902 naLOXone (NARCAN) injection 0.4 mg 0.4 mg Intravenous PRN Nikolas Jiménez MD nystatin (MYCOSTATIN) 654420 UNIT/ML suspension 5 mL 5 mL Oral 4x Daily Nikolas Jiménez MD 5 mL at 09/13/242103 nystatin (MYCOSTATIN) powder Topical BID Nikolas Jiménez MD Given at 09/13/242104 ondansetron (ZOFRAN) injection 4 mg 4 mg Intravenous Q8H PRN Nikolas Jiménez MD polyethylene glycol (GLYCOLAX) packet 17 g 17 g Oral Daily PRN Keyona Miller MD pregabalin (LYRICA) capsule 150 mg 150 mg Oral BID Keyona Miller MD 150 mg at 09/13/242103 senna-docusate (SENOKOT-S) 8.6-50 MG tablet 1 tablet 1 tablet Oral BID Keyona Miller MD 1 tablet at 09/13/242103 sertraline (ZOLOFT) tablet 50 mg 50 mg Oral Daily Keyona Miller MD 50 mg at 09/13/24 09 traZODone (DESYREL) tablet 300 mg 300 mg Oral Nightly at bedtime Juanpablo Paresh Herman MD 300 mg at 09/13/242103 warfarin (COUMADIN) pharmacy to dose placeholder Oral See Admin Instructions Nikolas Jiménez MD No Known Allergies Principal Problem: CHF exacerbation ([facility]) SNOMED CT(R): ACUTE EXACERBATION OF CHRONIC CONGESTIVE HEART FAILURE Filed Vitals: 09/13/24 2352 09/14/24 0427 09/14/24 0500 09/14/24 0800 BP: 125/62 119/69 122/61 Pulse: (!) 110 60 60 Resp: 19 Temp: 97.9 ??F (36.6 ??C) 96.6 ??F (35.9 ??C) TempSrc: Temporal Temporal SpO2: 99% 100% 100% Weight: 97.5 kg (214 lb 15.2 oz) Height: Last 3 Recorded Weights 09/12/24 0500 09/13/24 0500 09/14/24 0500 Weight: 92.5 kg (203 lb 14.8 oz) 92.6 kg (204 lb 2.3 oz) 97.5 kg (214 lb 15.2 oz) Intake/Output Summary (Last 24 hours) at 09/14/2024 0904 Last data filed at 09/14/2024 0100 Gross per 24 hour Intake 1120 ml Output 1500 ml Net -380 ml Physical Exam: Awake. No distress eating breakfast -GENERAL: No acute distress, breathing comfortably on room air. -EYES: Extraocular movements intact -ENT: Neck supple, Septum is midline. -LUNG: Clear to auscultation bilaterally, No wheezes, No crackles -CVS: Regular rate rhythm, S1 and S2 normal, No murmurs, -ABDOMEN: Soft, nondistended, Nontender, Bowel sounds observed -EXT: no lower Ext edema. -NEURO: Alert, awake, oriented x3, No gross neuro deficit -SKIN: Skin color, texture, turgor normal. No rashes or lesions LABs Recent Labs Lab 09/08/24 0453 09/09/24 0610 09/10/24 0549 09/11/24 0358 09/12/2431109/13/2445709/14/24 034 NA 151* 149* 147* 140 137 -- 137 K 3.4* 3.6 3.6 3.5 4.3 -- 4.1 CL 117* 115 114 104 102 -- 101 CO2 32.3* 29.3 28.8 31.7 31.9 -- 31.4 AGAP 1.7* 4.7 4.2 4.3 3.1 -- 4.6 BUN 41* 36* 37* 36* 39* -- 46* CR 1.67* 1.66* 1.52* 1.52* 1.37* -- 1.39* GLU 136* 277* 330* 224* 304* -- 228* CA 9.2 9.2 8.9 8.6 8.6 -- 8.6 MAGNESIUM 2.8* 3.1* 2.9* 2.4 2.7* 2.9* 2.7* PHOS 3.1 3.0 2.3* 3.1 2.9 3.1 2.4* Recent Labs Lab 09/08/24 0453 09/09/24 0610 09/10/24 0547 09/11/248 09/12/2431109/14/24347 WBC 15.12* 12.18* 11.75* 13.97* 13.55* 14.68* RBC 3.91* 4.08* 4.07* 3.68* 3.75* 3.77* HGB 11.1* 11.7* 11.7* 10.4* 10.8* 10.9* HCT 37.6 40.1 39.8 34.9* 35.6* 35.8* MCV 96.2 98.3 97.8 94.8 94.9 95.0 MCH 28.4 28.7 28.7 28.3 28.8 28.9 MCHC 29.5* 29.2* 29.4* 29.8* 30.3* 30.4* PLT 107* 102* 107* 103* 129* 134* RDW 15.9* 15.8* 15.8* 15.5* 15.4* 15.3* MPV 12.5* 13.2* 14.3* 13.8* 13.9* 14.0* Assessment/Plan: 69-year-old gentleman with past medical history significant for CKD stage III, atrial fibrillation,heart failure with reduced ejection fraction, coronary disease, aortic stenosis status post bioprosthetic aortic valve placement, pulmonary hypertension, COPD, obstructive sleep apnea, dyslipidemia, diabetes mellitus type 2, stroke, anxiety, hypertension, restless leg syndrome who presented due to BRITTANY and hyperkalemia. Patient had a fall on 08/18/2024, initially declined treatment but ultimately presented to outside ED 2 days ago with rib pain and knee pain. He also reported shortness of breath and lower extremity swelling. His creatinine was found to be 2 with potassium 5.9. Patient transferred to [facility] for BRITTANY and hyperkalemia management. BRITTANY on CKD stage III -Baseline creatinine 1.3-1.5. Patient also follows with Dr. Beltran -At outside hospital creatinine was 2.0, patient received fluids and creatinine increased to 2.8. This is likely related to hemodynamics/fluid overload. -Renal ultrasound showed suboptimal visualization of right kidney. No right sided hydronephrosis. No increase echogenicity. Right kidney 11.6 cm. Left kidney was not seen. -CPK normal, urinalysis 3+ blood and a mild protein WBCs 27 RBCs greater than 182, urine sodium of 88. BRITTANY serology negative -Initial chest x-ray showed pulmonary vascular congestion and interstitial edema -s/p aggressive IV diuresis. Net -20 liter uf and weight down 22 kilos -Most recent creatinine 1.39 today -Bumex oral 2 mg -Strict I's/O, avoid nephrotoxins; weight not correlating 2. HTN. -Blood pressure stable -Continue to avoid STEVIE/ARB 3. Anemia of chronic disease. Hemoglobin stable 4. Electrolytes. -sodium is stable. 5. Renal osteodystrophy. Calcium and phosphorus levels are okay 6. Disposition stable Dr Morrell software configuration analyst tomorrow Thank you for allowing me to participate in the care of this patient. We will continue to follow this patient with you. Please contact us with further questions. NOA BURNS MD 09/14/2024 ROOM SUPERVISOR * Lakhwinder Howard, MARINE MAMMAL TRAINER - 09/14/2024 8:10 AM CST [facility] PROGRESS NOTE Reason for admission: CHF exacerbation ([facility]/H[facility] HHS/HCC) [I50.9] Reason for consult: Acute hypoxic and hypercarbic respiratory failure ASSESSMENT AND PLAN Obie Sims is a 69-year-old male, with history of COPD (FEV1 50%), SHEELA not on CPAP, A-fib on Warfarin, HFrEF, CAD, aortic stenosis s/p bioprosthetic aortic valve replacement, PAD, DM2, CKD stage III, CVA, HTN, HLD, anxiety/depression, and RLS. No significant smoking history. Says he quit more than 40 years ago and was not a regular smoker. Admitted 08/31 after transfer from [facility] for CHF exacerbation, BRITTANY, and hyperkalemia. He initially presented to outside hospital after a fall, found to have rib fractures. Required emergent intubation for hypoxia 09/04 and transferred to ICU. Diuresed and treated for possible aspiration pneumonia. Extubated 09/06. Patient requiring BiPAP at night and intermittently throughout the day for hypercapnia. Will need arrangement for home NIV machine. [facility] Pul[facility]ology consulted for acute hypoxic and hypercapnic respiratory failure. Active Problems # Acute hypoxic/hypercapnic respiratory failure # Acute on chronic heart failure with exacerbation # Pneumonia, completed antibiotics # COPD exacerbation # Hx SHEELA, not on CPAP Pertinent Workup CXR 09/09/24: Cardiomegaly with interval increase in pulmonary vascular congestion. Echo 08/31/24: Technically difficult. Mildly enlarged LV. EF 43%. Moderate- severely enlarged RV with severely depressed systolic function. RVSP 36. Moderate aortic valve stenosis. Mild TR. 08/31 Blood culture: no growth 09/01 Urine culture: no growth 09/03 Blood culture: no growth 09/05 Tracheal aspirate culture: no growth VBG 09/13 0458 (wore BiPAP 12/5 cwp all night): pH 7.29/pCO2 68.6 VBG 09/13 1300 (after 3 hours on BiPAP 12/5 cwp): pH 7.32/pCO2 63.4 VBG 09/14 0348 (on BiPAP 12/6 cwp): pH 7.34/pCO2 62.0 Previous pulmonary workup: - PFT 03/26/21: FEV1 1.42L(50%), FVC 2.11L(59%), ratio 0.67, TLC 76%, RV 101%, DLCO 41%. - Home sleep study 05/20/21: AHI 10. [facility] Pulmonology Recommendations - Will attempt to qualify for BiPAP for chronic respiratory failure secondary to COPD. Bedside spirometry and overnight oximetry on 2L ordered. Will follow up on results tomorrow. - Patient should not wear BiPAP tonight due to overnight oximetry testing. - Optimize patient's heart failure per cardiology. Consider further diuresis. - Follow up with Dr. Saleh in [place] after discharge. Thank you for the consult. We will continue to follow. SUBJECTIVE Review of Systems Constitutional: Negative for chills and fever. Eyes: Negative for blurred vision. Respiratory: Positive for cough and sputum production. Negative for hemoptysis, shortness of breathand wheezing. Minimal shortness of breath with activity. Cardiovascular: Negative for chest pain and palpitations. Gastrointestinal: Negative for abdominal pain, constipation, diarrhea, nausea and vomiting. Genitourinary: Negative for dysuria. Neurological: Negative for dizziness and headaches. OBJECTIVE Physical Exam Constitutional: General: He is not in acute distress. Appearance: He is obese. HENT: Head: Normocephalic and atraumatic. Eyes: Extraocular Movements: Extraocular movements intact. Cardiovascular: Rate and Rhythm: Normal rate. Heart sounds: No murmur heard. Pulmonary: Effort: Pulmonary effort is normal. No respiratory distress. Breath sounds: No wheezing, rhonchi or rales. Comments: On BiPAP 12/6 cwp with 35% FiO2. Abdominal: Palpations: Abdomen is soft. Tenderness: There is no abdominal tenderness. Musculoskeletal: Right lower leg: No edema. Left lower leg: No edema. Skin: General: Skin is warm and dry. Nails: There is no clubbing. Neurological: General: No focal deficit present. Mental Status: He is alert and oriented to person, place, and time. Psychiatric: Mood and Affect: Mood normal. Thought Content: Thought content normal. Recent Vitals: Filed Vitals: 09/13/24 2352 09/14/24 0427 09/14/24 0500 09/14/24 0800 BP: 125/62 119/69 122/61 Pulse: (!) 110 60 60 Resp: 19 Temp: 97.9 ??F (36.6 ??C) 96.6 ??F (35.9 ??C) TempSrc: Temporal Temporal SpO2: 99% 100% 100% Weight: 97.5 kg (214 lb 15.2 oz) Height: Medications: acetylcysteine 10 % 200 mg Nebulization 2 times daily allopurinol 200 mg Oral Daily aspirin 81 mg Oral Daily atorvastatin 80 mg Oral Nightly at bedtime bumetanide 2 mg Oral Daily clotrimazole-betamethasone Topical Q12H folic acid 1 mg Oral Daily insulin glargine 40 Units Subcutaneous Nightly at bedtime insulin lispro 0-6 Units Subcutaneous 4x Daily AC and at bedtime ipratropium-albuterol 3 mL Nebulization Q4H metoprolol succinate ER 12.5 mg Oral Daily nystatin 5 mL Oral 4x Daily nystatin Topical BID pregabalin 150 mg Oral BID senna-docusate 1 tablet Oral BID sertraline 50 mg Oral Daily traZODone 300 mg Oral Nightly at bedtime warfarin (COUMADIN) pharmacy to dose Oral See Admin Instructions PRN: acetaminophen, albuterol, glucose, dextrose 10 % bolus, [DISCONTINUED] fentaNYL AND [DISCONTINUED] fentaNYL AND fentaNYL, glucagon, HYDROcodone- acetaminophen, HYDROmorphone, hydrOXYzine, naLOXone, ondansetron, polyethylene glycol Labs: Recent Labs 09/12/24 0312 09/13/24 0458 09/14/24 0348 WBC 13.55* -- 14.68* HGB 10.8* -- 10.9* PLT 129* -- 134* GLU 304* -- 228* BUN 39* -- 46* CR 1.37* -- 1.39* NA 137 -- 137 K 4.3 -- 4.1 CL 102 -- 101 CO2 31.9 -- 31.4 PHOS 2.9 3.1 2.4* ALT -- -- 31 AST -- -- 18 Micro: Microbiology Results (last 14 days) Procedure Component Value Units Date/Time MRSA PCR nares Screening [[id number]] Collected: 09/07/24 0848 Order Status: Canceled Lab Status: No result Specimen: NASAL CULTURE, RESPIRATORY W/ GRAM STAIN [[id number]] Collected: 09/05/24 0740 Order Status: Completed Lab Status: Final result Updated: 09/10/24 1031 Specimen: TRACHEAL ASPIRATE SPEC DESCRIPTION TRACHEAL ASPIRATE SPECIAL REQUESTS NO SPECIAL REQUEST GRAM STAIN RESULT <10 EPITHELIAL CELLS PER LPF GRAM STAIN RESULT >25 NEUTROPHILS PER LPF GRAM STAIN RESULT NO ORGANISMS SEEN CULTURE RESULT NO GROWTH 5 DAYS Gastric PH [[id number]] Order Status: Canceled Lab Status: No result Specimen: GASTRIC FLUID CULTURE, BACTERIA BLOOD [[id number]] Collected: 09/03/24 1223 Order Status: Completed Lab Status: Final result Updated: 09/08/24 2136 Specimen: BLOOD SPEC DESCRIPTION BLOOD SPECIAL REQUESTS NO SPECIAL REQUEST CULTURE RESULT NO GROWTH 5 DAYS CULTURE, URINE [[id number]] Collected: 09/01/24 1110 Order Status: Completed Lab Status: Final result Updated: 09/03/24 0835 Specimen: URINE, CLEAN CATCH SPEC DESCRIPTION URINE CLEAN CATCH SPECIAL REQUESTS NO SPECIAL REQUEST CULTURE RESULT NO GROWTH (< OR = 1,000 CFU/ML) CULTURE, BACTERIA BLOOD X2 [[id number]] Collected: 08/31/24 1034 Order Status: Completed Lab Status: Final result Updated: 09/06/24 0011 Specimen: BLOOD SPEC DESCRIPTION BLOOD SPECIAL REQUESTS NO SPECIAL REQUEST CULTURE RESULT NO GROWTH 5 DAYS LALIT Pozo W[facility] Pulmonology 09/14/2024 Cosigned by Broderick Cheng MD at 09/14/2024 5:35 PM WAX ROOM SUPERVISOR ROOM SUPERVISOR ROOM SUPERVISOR Associated attestation - Broderick Cheng MD - 09/14/2024 5:35 PM WAX ROOM SUPERVISOR Pulmonary Attending: I rounded with the DEFENSE ATTORNEY. I interviewed and examined the pt. I reviewed the pt's labs and recent chest imaging. read the DEFENSE ATTORNEY's note and I agree with the history, PE finding and recommendations. Time: 30 min * Concha Ross, OCCUPATIONAL ANALYST - 09/14/2024 8:00 AM CSTSummary: CCM Complex care conference today with hospitalist, charge nurse, pharmacist, and RNCM. Patient continues to require inpatient care for CHF Exacerbation. At this time, the working discharge plan is 09/15.Finalization of disposition is pending pt medically ready to D/C. RNCM will continue to assess for needs and confirm the discharge plan as inpatient care progresses. PT/OT recs SNF. Staff spoke to pt on 09/08. Pt requested [facility]. Refs sent and accepted at [facility], auth started 09/11, received auth 09/13 at 1602. This AM Anette called me-wediscussed if pt would D/C today-had to wait for MD to see him. At 1120, MD says he can D/C tomorrow. Pt's daughter Bonnie and I spoke per her request and she states she told Lea JEAN-BAPTISTE from the start that she wanted pt to go to [facility] or [facility] or [facility]. No referrals sent to any [facility] and no documented conversations between Bonnie and Lea. Daughter is upset that pt may have to go to SNF instead of [facility]. I told her I would talk to Nohelia MORRISSEY CM Used Car Sales Supervisor and Deidra MORRISSEY CM Operational Trainer to see what we can or should do about this. Per Kaitlynn, CM can send referrals to S[facility] and then check with them to see if they accept pt and we can get Ins Auth switched to [facility]. [facility] are full. Daughter OK with 1. [facility], 2. [facility], 3. [facility]. Referrals sent and CM will make follow up calls to S[facility] to see if any can accept. If not pt would have to go to SNF. CM called Bonnie and updated her on this information. Esperanza CM explained to following SBU why we need accepting S[facility] as soon as possible so we can work on switching Ins Auth to [facility] when we have accepting S[facility] so pt can still discharge tomorrow. [facility] sent and will let CM know if they can accept later todayor likely tomorrow morning. [facility] sent[facility] may have an answer later today. [facility] and may have an answer later today. Updated pt's daughter, Nini and she will let Bonnie duckworth information also. 09/14/24 0800 Interdisciplinary Group Conference Team Members Present Physician;Case/Care management;Nursing Physician present for group conference Dr Wilson Patient Current Status Paient current status Inpatient Barriers to Discharge Inpatient Review Barriers to Discharge Inpatient Other (Comment) Other follow up (Comment) CM spoke to Anette Vera called this AM. They have Ins Auth for their SNF for 09/13-09/19 and pt good to go today if medically ready. CM sent message to Dr Wilson about this information. Patient expects to be discharged to Patient expects to be discharged to: [facility]( SNF) ROOM SUPERVISOR ROOM SUPERVISOR ROOM SUPERVISOR * Brit Gonzáles MD - 09/13/2024 7:02 PM CST [facility] PRO[facility]ESS NOTE Name:Obie Sims Age:69-year-old Sex:male :1955 CHIEF COMPLAINT: CHF SUBJECTIVE: Sitting in chair, finished his dinner Denied CP, SOB at rest Tele reviewed: 11 beat run of NSVT ASSESSMENT AND PLAN: # Chronic HFrEF: euvolemic, compensated # NSVT: c/t BB # BRITATNY on CKD: BRITTANY resolved # Paroxysmal Afib w/ CVR: on Warfarin # CAD, last MPI 02/2024 - no ischemia # Carotid dz/PAD # Prosthetic AV w/ moderate stenosis # PNA/?Aspiration C/t low dose BB C/t Bumex, maintain net even fluid balance Pharmacy to dose warfarin Will c/t to follow Patient Active Problem List Diagnosis S/P ablation of atrial fibrillation LV dysfunction Essential hypertension Mixed hyperlipidemia Diabetes mellitus, type II ([facility]) Coronary artery disease involving robinson coronary artery of robinson heart without angina pectoris COPD (chronic obstructive pulmonary disease) ([facility]) Carotid disease, bilateral ([facility]) Arthritis Aortic stenosis Chronic anticoagulation Chronic atrial fibrillation ([facility]) S/P aortic valve replacement with bioprosthetic valve Varicose veins of bilateral lower extremities with other complications Abnormal ankle brachial index (STELLA) Claudication ([facility]) Pain in both lower extremities Abnormal finding on lung imaging Abnormal finding on pulmonary function testing Shortness of breath TIA (transient ischemic attack) Obstructive sleep apnea (adult) (pediatric) Pulmonary hypertension ([facility]) Asymptomatic carotid artery stenosis, bilateral Mild persistent asthma without complication ([facility]) Leg edema Other closed fracture of distal end of right fibula with routine healing, subsequent encounter NSTEMI (non-ST elevated myocardial infarction) ([facility]) Elevated troponin Elevated brain natriuretic peptide (BNP) level Fall CHF (congestive heart failure) ([facility]) Rib fractures CHF exacerbation ([facility]) 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 breakdown of skin ([facility]) Non-pressure chronic ulcer of left calf limited to breakdown of skin ([facility]) Chronic venous insufficiency Review of Systems: Review of Systems Constitutional: Positive for weakness. Negative for recent unintentional weight gain, recent unintentional weight loss and new or significant fatigue. HENT: Negative for new or significant hearing loss. Eyes: Negative for blurred vision and double vision. Respiratory: Positive for cough and shortness of breath. Negative for snoring. Cardiovascular: See HPI. Positive for leg swelling. Gastrointestinal: Negative for blood in stool and melena. Genitourinary: Negative for dysuria. Musculoskeletal: Negative for myalgias and new or worsening joint stiffness/pain. Skin: Negative for rash. Neurological: Negative for tingling/numbness and focal weakness. Endo/Heme/Allergies: Negative for new or significant bruising/bleeding and polydipsia. Psychiatric/Behavioral: Negative for depression and new or significant memory loss. Medications: Scheduled Meds: acetylcysteine 10 % 200 mg Nebulization 2 times daily allopurinol 200 mg Oral Daily aspirin 81 mg Oral Daily atorvastatin 80 mg Oral Nightly at bedtime bumetanide 2 mg Oral Daily clotrimazole-betamethasone Topical Q12H folic acid 1 mg Oral Daily insulin glargine 40 Units Subcutaneous Nightly at bedtime insulin lispro 0-6 Units Subcutaneous 4x Daily AC and at bedtime ipratropium-albuterol 3 mL Nebulization Q4H metoprolol succinate ER 12.5 mg Oral Daily nystatin 5 mL Oral 4x Daily nystatin Topical BID pregabalin 150 mg Oral BID senna-docusate 1 tablet Oral BID sertraline 50 mg Oral Daily traZODone 300 mg Oral Nightly at bedtime warfarin (COUMADIN) pharmacy to dose Oral See Admin Instructions Continuous Infusions: PRN Meds: acetaminophen, albuterol, glucose, dextrose 10 % bolus, [DISCONTINUED] fentaNYL AND [DISCONTINUED] fentaNYL AND fentaNYL, glucagon, HYDROcodone-acetaminophen, HYDROmorphone, hydrOXYzine, naLOXone, ondansetron, polyethylene glycol OBJECTIVE Weight change in the last 24 hours: Body mass index is 32.95 kg/m??. Wt Readings from Last 3 Encounters: 09/13/24 92.6 kg (204 lb 2.3 oz) 08/24/24 106.6 kg (235 lb) 08/03/24 103 kg (227 lb) Intake/Output past 24 Hours: Intake/Output Summary (Last 24 hours) at 09/14/2024 0511 Last data filed at 09/14/2024 0100 Gross per 24 hour Intake 1120 ml Output 1500 ml Net -380 ml Filed Vitals: 09/13/24 1847 09/13/24 1943 09/13/24 2352 09/14/24 0427 BP: 124/67 125/62 119/69 Pulse: 74 (!) 110 60 Resp: Temp: 96.6 ??F (35.9 ??C) 97.9 ??F (36.6 ??C) 96.6 ??F (35.9 ??C) TempSrc: Temporal Temporal Temporal SpO2: 96% 100% 99% 100% Weight: Height: Physical Exam Constitutional: General: He is not in acute distress. Appearance: Normal appearance. He is well-developed. HENT: Nose: No mucosal edema. Mouth/Throat: Pharynx: No oropharyngeal exudate. Neck: Vascular: No JVD. Cardiovascular: Rate and Rhythm: Normal rate and regular rhythm. Chest Wall: PMI is not displaced. Heart sounds: S1 normal and S2 normal. [...] Behavior normal. Thought Content: Thought content normal. LABORATORY/INVESTIGATIONS: Recent Labs 09/12/2431109/14/24 0348 WBC 13.55* 14.68* HGB 10.8* 10.9* HCT 35.6* 35.8* MCV 94.9 95.0 PLT 129* 134* Recent Labs 09/12/24 0312 09/14/24 0348 NA 137 137 K 4.3 4.1 CL 102 101 CO2 31.9 31.4 AGAP 3.1 4.6 BUN 39* 46* CR 1.37* 1.39* GLU 304* 228* Recent Labs 09/13/24 0458 INR 1.2* Results for orders placed or performed during the hospital encounter of 08/31/24 PRO-BRAIN NATRIURETIC PEPTIDE (PRO BNP) Collection Time: 09/03/24 8:29 PM Result Value Ref Range PRO-B TYPE NATRIURETIC PEPTIDE 28,171 (H) <125 PG/ML No results for input(s): TROP , TROPIWB in the last 72 hours. Recent Labs 09/14/24347 TP 6.9 ALB 2.5* ALT 31 IMAGING: Reviewed ECG/TELEMETRY Reviewed Signed BRIT GONZÁLES MD 09/13/2024 ROOM SUPERVISOR * Juanpablo Herman MD - 09/13/2024 2:32 PM CST Images from the original note were not included. [employer] Hospitalist Progress note Chief Complain: Respiratory failure ASSESSMENT /PLAN: Obie Sims is an 69-year-old male with a past medical history of CKD stage III, atrial fibrillation on warfarin, heart failure with reduced ejection fraction, coronary artery disease, aortic stenosis status post bioprosthetic aortic valve replacement, pulmonary hypertension, COPD/asthma, obstructive sleep apnea, hyperlipidemia, diabetes mellitus type 2, CVA, carotid disease, anxiety/depression, hypertension, PAD, and RLS. He was transferred to [facility] with BRITTANY and hyperkalemia. During this hospitalization patient developed worsening hypoxic respiratory failure requiring intubation, transferred to ICU. In ICU he was treated with IV Lasix drip and also treated for possible aspiration pneumonia. Now extubated, transferred out of ICU ON 09/07/2023 Acute on chronic heart failure with reduced ejection fraction Anasarca Pulmonary hypertension Valvular heart disease Acute respiratory failure with hypoxia/hypercarbia -Echocardiogram from February 2024 reveals an ejection fraction of 40 to 45% with bioprosthetic aortic valve, no central or periprosthetic aortic regurgitation, mild mitral regurgitation, and mild tricuspid regurgitation. Worsening hypoxic respiratory failure requiring ICU admission, intubation -Strict intake and output with daily weights. Monitor renal functions -Holding Entresto in light of BRITTANY. Will resume eprk-slnjumzl-jvuju dose -[facility] nephrology consulted. Nephrology dosing diuretics as and when needed Cardiology following, appreciate recommendations- Continue BiPAP at night for hypercapnic respiratory failure. Patient will need Arranged at rehab Noted worsening CO2 this morning. Staff reports patient used BiPAP overnight. Patient placed on a BiPAP this morning continue and recheck ABG later today. Patient will need a BiPAP arrangement at facility, will also consult pulmonary for respiratory failure Creatinine improving monitor Monitor respiratory status closely Pneumonia-HCAP versus aspiration Completed antibiotic course. Treated with Zosyn Encourage incentive spirometry Supplemental oxygen as needed BRITTANY on CKD stage III improving Hyperkalemia, resolved Hypernatremia Sodium improving Monitor renal functions, nephrology following Renal functions improving Will discuss with nephrology, started diuretics as tolerated Ground-level fall Rib fractures Generalized weakness -CT of the chest shows acute fractures of the seventh and eighth right ribs. -PT/OT consult. -Pain control. -Incentive spirometer. Concern for pneumonia probably HCAP versus aspiration Completed antibiotic course hematuria -UA negative. -Likely due to traumatic Oneill insertion and/or trauma to Oneill in setting of supratherapeutic INR.Initial UA with no RBCs. Resolved, monitor Atrial fibrillation Supratherapeutic INR, resolved Nonsustained ventricular tachycardia -INR was 5.4 on presentation. -Continue beta-kim for rate control. -Pharmacy consulted for Coumadin dosing. Monitor INR -Monitor telemetry. nonsustained ventricular tachycardia Continue small dose of beta-kim Continue current regimen, cardiology following. Appreciate cardiology Diabetes mellitus type 2 -Continue Jardiance. Continue sliding scale insulin and Lantus as indicated Coronary artery disease Hypertension Hyperlipidemia -Heart catheterization from 2020 revealed a 60% proximal LAD stenosis, 50% ostial RCA stenosis, bioprosthetic aortic valve without aortic regurgitation, and severe pulmonary hypertension. Will add small dose of beta-blockers, continue statins -Monitor telemetry. COPD/asthma overlap syndrome Hypercarbic respiratory failure-rate COPD exacerbation Continue bronchodilators. prednisone 40 mg daily-total 5 days Completed antibiotic therapy CVA Carotid disease PAD -Continue aspirin and statin. Body mass index is 32.95 kg/m??. DVT Prophylaxis:on warfarin Code Status: DNR Not Medically Ready/Awaiting Clinical Improvement Therapy recommending rehab placement case management involved discharge planning awaiting insuranceapproval Anticipate discharge to help in 1 to 2 days time once respiratory shortness improved and remained stable SUBJECTIVE Patient seen and examined. Patient used BiPAP overnight this morning pCO2 elevated, pH 7.29 on VBG. Minimal symptoms OBJECTIVE Blood pressure 127/77, pulse 72, temperature 97.7 ??F (36.5 ??C), temperature source Oral, resp. rate 20, height 1.676 m (5' 6 ), weight 92.6 kg (204 lb 2.3 oz), SpO2 100%. Wt Readings from Last 3 Encounters: 09/13/24 92.6 kg (204 lb 2.3 oz) 08/24/24 106.6 kg (235 lb) 08/03/24 103 kg (227 lb) Review of Systems All other systems reviewed and are negative. Physical Exam Constitutional: Appearance: He is well-developed. HENT: Head: Normocephalic and atraumatic. Eyes: Pupils: Pupils are equal, round, and reactive to light. Cardiovascular: Rate and Rhythm: Normal rate and regular rhythm. Heart sounds: No murmur heard. No friction rub. Pulmonary: Breath sounds: No wheezing or rales. Chest: Chest wall: No tenderness. Abdominal: General: Bowel sounds are normal. Palpations: Abdomen is soft. Tenderness: There is no abdominal tenderness. There is no guarding or rebound. Musculoskeletal: General: Normal range of motion. Cervical back: Normal range of motion and neck supple. Skin: General: Skin is warm and dry. Findings: No rash. Neurological: Mental Status: He is alert and oriented to person, place, and time. LABS: Recent Labs 09/11/2435709/12/24311 WBC 13.97* 13.55* HGB 10.4* 10.8* HCT 34.9* 35.6* MCV 94.8 94.9 PLT 103* 129* RBC 3.68* 3.75* Recent Labs 09/11/2435709/12/24311 ALT 30 -- AST 22 -- CO2 31.7 31.9 CL 104 102 GLU 224* 304* K 3.5 4.3 NA 140 137 BUN 36* 39* Intake/Output Summary (Last 24 hours) at 09/13/2024 1432 Last data filed at 09/13/2024 0945 Gross per 24 hour Intake 360 ml Output 1300 ml Net -940 ml Microbiology Results (last 14 days) Procedure Component Value Units Date/Time MRSA PCR nares Screening [[id number]] Collected: 09/07/24 0848 Order Status: Sent Lab Status: No result Specimen: NASAL CULTURE, RESPIRATORY W/ GRAM STAIN [[id number]] Collected: 09/05/24 0740 Order Status: Completed Lab Status: Preliminary result Updated: 09/08/2440 Specimen: TRACHEAL ASPIRATE SPEC DESCRIPTION TRACHEAL ASPIRATE SPECIAL REQUESTS NO SPECIAL REQUEST GRAM STAIN RESULT <10 EPITHELIAL CELLS PER LPF GRAM STAIN RESULT >25 NEUTROPHILS PER LPF GRAM STAIN RESULT NO ORGANISMS SEEN CULTURE RESULT NO GROWTH 3 DAYS Gastric PH [[id number]] Order Status: No result Lab Status: No result Specimen: GASTRIC FLUID CULTURE, BACTERIA BLOOD [[id number]] Collected: 09/03/24 1223 Order Status: Completed Lab Status: Preliminary result Updated: 09/07/241926 Specimen: BLOOD SPEC DESCRIPTION BLOOD SPECIAL REQUESTS NO SPECIAL REQUEST CULTURE RESULT NO GROWTH 4 DAYS CULTURE, URINE [[id number]] Collected: 09/01/24 1110 Order Status: Completed Lab Status: Final result Updated: 09/03/24 0835 Specimen: URINE, CLEAN CATCH SPEC DESCRIPTION URINE CLEAN CATCH SPECIAL REQUESTS NO SPECIAL REQUEST CULTURE RESULT NO GROWTH (< OR = 1,000 CFU/ML) CULTURE, BACTERIA BLOOD X2 [[id number]] Collected: 08/31/24 1034 Order Status: Completed Lab Status: Final result Updated: 09/06/24 0011 Specimen: BLOOD SPEC DESCRIPTION BLOOD SPECIAL REQUESTS NO SPECIAL REQUEST CULTURE RESULT NO GROWTH 5 DAYS Radiology MEDICATIONS Scheduled medications acetylcysteine 10 % 200 mg Nebulization 2 times daily allopurinol 200 mg Oral Daily aspirin 81 mg Oral Daily atorvastatin 80 mg Oral Nightly at bedtime clotrimazole-betamethasone Topical Q12H folic acid 1 mg Oral Daily insulin glargine 40 Units Subcutaneous Nightly at bedtime insulin lispro 0-6 Units Subcutaneous 4x Daily AC and at bedtime ipratropium-albuterol 3 mL Nebulization Q4H metoprolol succinate ER 12.5 mg Oral Daily nystatin 5 mL Oral 4x Daily nystatin Topical BID pregabalin 150 mg Oral BID senna-docusate 1 tablet Oral BID sertraline 50 mg Oral Daily traZODone 300 mg Oral Nightly at bedtime warfarin (COUMADIN) pharmacy to dose Oral See Admin Instructions warfarin 4 mg Oral Once Infusion PRN acetaminophen, albuterol, glucose, dextrose 10 % bolus, [DISCONTINUED] fentaNYL AND [DISCONTINUED] fentaNYL AND fentaNYL, glucagon, HYDROcodone- acetaminophen, HYDROmorphone, hydrOXYzine, naLOXone, ondansetron, polyethylene glycol JUANPABLO HERMAN MD 2:32 PM 09/13/2024 ROOM SUPERVISOR * Mel Thomas RN - 09/13/2024 2:18 PM CST Images from the original note were not included. 09/13/24 1325 09/13/24 1333 09/13/24 1336 Wound 08/31/24 Coccyx *Pressure ulcer/injury Stage 2 Date First Assessed/Time First Assessed: 08/31/24 0900 Present on Original Admission: Yes Location:Coccyx Wound Type (All Types with (*) require further diagnosis confirmation by Medical Provider): *Pressure ulcer/injury Pressure Ulcer Staging (... Wound Image -- -- Wound Bed Assessment Partial Thickness;Clean;[place] -- -- Anya-wound Assessment Fragile;Clean;Dry;[place] -- -- Drainage Amount Scant -- -- Drainage Description Serosanguineous -- -- Interventions Cleansed;Site care -- -- Dressing Foam border adhesive -- -- Periwound Dressing Skin protectant-spray/film/prep/liquid -- -- Dressing Changed Changed -- -- Dressing Status Clean;Dry;Intact -- -- Wound 09/01/24 Pretibial Right *Venous ulcer Date First Assessed/Time First Assessed: 09/01/24 1334 Present on Original Admission: Yes Location:Pretibial Wound Location Orientation: Right Wound Type (All Types with (*) require further diagnosis confirmation by Medical Provider): *Venous ulcer Wound Image -- -- Wound Bed Assessment -- Dry;Partial Thickness;[place] (scab) -- Anya-wound Assessment -- Dry;Hemosiderin staining -- Wound Length (cm) -- 2 cm -- Wound Width (cm) -- 2 cm -- Wound Surface Area (cm^2) -- 4 cm^2 -- % Healed -- 73.33 -- Drainage Amount -- None -- Interventions -- Cleansed;Site care -- Dressing -- Foam border adhesive -- Dressing Changed -- Changed -- Dressing Status -- Clean;Dry;Intact -- Wound 09/10/24 Knee Anterior;Right scab Date First Assessed/Time First Assessed: 09/10/24 0300 Location: Knee Wound Location Orientation: Anterior;Right Wound Description (Comments): scab Wound Image -- -- Wound Bed Assessment -- -- Full Thickness;Red Anya-wound Assessment -- -- Clean;Dry;Intact Wound Length (cm) -- -- 0.9 cm Wound Width (cm) -- -- 1 cm Wound Depth (cm) -- -- 0.3 cm Wound Surface Area (cm^2) -- -- 0.9 cm^2 Drainage Amount -- -- Scant Drainage Description -- -- Serosanguineous Drainage odor -- -- None Interventions -- -- Cleansed;Site care Dressing -- -- Foam border adhesive Dressing Changed -- -- Changed Dressing Status -- -- Clean;Dry;Intact Wound 09/13/24 Ear Right Date First Assessed/Time First Assessed: 09/13/24 1341 Location: Ear Wound Location Orientation: Right Wound Image -- -- -- Wound Bed Assessment -- -- -- Anya-wound Assessment -- -- -- Wound Length (cm) -- -- -- Wound Width (cm) -- -- -- Wound Surface Area (cm^2) -- -- -- Drainage Amount -- -- -- Drainage Description -- -- -- Interventions -- -- -- Dressing -- -- -- Dressing Changed -- -- -- Dressing Status -- -- -- Wound 09/13/24 Ear Left Date First Assessed/Time First Assessed: 09/13/24 1344 Location: Ear Wound Location Orientation: Left Wound Image -- -- -- Wound Bed Assessment -- -- -- Anya-wound Assessment -- -- -- Wound Length (cm) -- -- -- Wound Width (cm) -- -- -- Wound Surface Area (cm^2) -- -- -- Drainage Amount -- -- -- Drainage Description -- -- -- Interventions -- -- -- Dressing -- -- -- Dressing Changed -- -- -- Dressing Status -- -- -- 09/13/24 1342 09/13/24 1344 Wound 08/31/24 Coccyx *Pressure ulcer/injury Stage 2 Date First Assessed/Time First Assessed: 08/31/24 0900 Present on Original Admission: Yes Location:Coccyx Wound Type (All Types with (*) require further diagnosis confirmation by Medical Provider): *Pressure ulcer/injury Pressure Ulcer Staging (... Wound Image -- -- Wound Bed Assessment -- -- Anya-wound Assessment -- -- Drainage Amount -- -- Drainage Description -- -- Interventions -- -- Dressing -- -- Periwound Dressing -- -- Dressing Changed -- -- Dressing Status -- -- Wound 09/01/24 Pretibial Right *Venous ulcer Date First Assessed/Time First Assessed: 09/01/24 1334 Present on Original Admission: Yes Location:Pretibial Wound Location Orientation: Right Wound Type (All Types with (*) require further diagnosis confirmation by Medical Provider): *Venous ulcer Wound Image -- -- Wound Bed Assessment -- -- Anya-wound Assessment -- -- Wound Length (cm) -- -- Wound Width (cm) -- -- Wound Surface Area (cm^2) -- -- % Healed -- -- Drainage Amount -- -- Interventions -- -- Dressing -- -- Dressing Changed -- -- Dressing Status -- -- Wound 09/10/24 Knee Anterior;Right scab Date First Assessed/Time First Assessed: 09/10/24 0300 Location: Knee Wound Location Orientation: Anterior;Right Wound Description (Comments): scab Wound Image -- -- Wound Bed Assessment -- -- Anya-wound Assessment -- -- Wound Length (cm) -- -- Wound Width (cm) -- -- Wound Depth (cm) -- -- Wound Surface Area (cm^2) -- -- Drainage Amount -- -- Drainage Description -- -- Drainage odor -- -- Interventions -- -- Dressing -- -- Dressing Changed -- -- Dressing Status -- -- Wound 09/13/24 Ear Right Date First Assessed/Time First Assessed: 09/13/24 1341 Location: Ear Wound Location Orientation: Right Wound Image -- Wound Bed Assessment Partial Thickness;[place] -- Anya-wound Assessment Clean;Fragile;[place] -- Wound Length (cm) 0.9 cm -- Wound Width (cm) 0.2 cm -- Wound Surface Area (cm^2) 0.18 cm^2 -- Drainage Amount Scant -- Drainage Description Serosanguineous -- Interventions Cleansed;Site care -- Dressing Foam, silver impregnated -- Dressing Changed Changed -- Dressing Status Clean;Dry;Intact -- Wound 09/13/24 Ear Left Date First Assessed/Time First Assessed: 09/13/24 1344 Location: Ear Wound Location Orientation: Left Wound Image -- Wound Bed Assessment -- Partial Thickness;[place] Anya-wound Assessment -- [place];Fragile Wound Length (cm) -- 0.5 cm Wound Width (cm) -- 0.3 cm Wound Surface Area (cm^2) -- 0.15 cm^2 Drainage Amount -- Scant Drainage Description -- Serosanguineous Interventions -- Cleansed;Site care Dressing -- Foam, silver impregnated Dressing Changed -- Changed Dressing Status -- Clean;Dry;Intact Wound care team reconsulted for bilateral ears and sacral site. Coccyx site, linear area of breakdown still present. Stage 2 Pressure injury. Periwound has improved. R lower leg site, has improved. Dry scabbing present. Pressure injury at right and left ea from oxygen cannula tubing. Applied silver foam dressing to site, then continued to use oxygen tubing foam support. Recommendations: -R lower leg wound- Apply foam mepilex dressing. Change every 3-5 days and PRN. -R knee wound- Apply piece of ag radha to wound bed depth, cover with foam dressing. Change every 3-5 days and PRN. -R/L ear- Oxygen tubing caused pressure injury, apply mepitel 2x3 thin foam to open area, change daily, use oxygen tubing foam support for off loading to site. -Coccyx down towards rectum wound, within skin fold, separate buttock cheeks to see- Cover with sacral foam dressing. Change every 3-5 days and PRN. ROOM SUPERVISOR * Iveth Tanner RN - 09/13/2024 10:30 AM CST 09/13/24 1030 Interdisciplinary Group Conference Team Members Present Case/Care management;Nursing Patient Current Status Paient current status Inpatient Barriers to Discharge Inpatient Review Barriers to Discharge Inpatient Complex - Social and/or Medical;Administering IV meds;Post-Acute Authorization Needed Administering IV meds follow up IV fluids Complex - Social and/or Medical follow up Picc Line/Peripheral IV/Coccyx Wound/O2 Post-Acute Authorization Needed follow up [facility] Patient expects to be discharged to Patient expects to be discharged to: [facility]( [facility]) ([facility] Accepted) ROOM SUPERVISOR * Yanni Presley PharmD, [facility] - 09/13/2024 9:38 AM CST Warfarin - Pharmacy Dosing Service Note Obie Sims is a 69-year-old male for which pharmacy has been consulted to dose warfarin for A.fib. Goal INR is 2-3. Warfarin Order Set Activated: Yes Warfarin Start Date: continuation from home Past Medical History: Diagnosis Date Abnormal ankle brachial index ([facility]) Acute on chronic heart failure, unspecified heart failure type ([facility]) Anxiety Aortic valve stenosis Arthritis Asthma, mild persistent ([facility]) 04/06/2021 Atrial fibrillation ([facility]) s/p PVI/[facility] 10/2015 Bilateral leg pain Carotid disease, bilateral ([facility]) CHF (congestive heart failure) ([facility]) Claudication ([facility]) COPD (chronic obstructive pulmonary disease) ([facility]) Coronary artery disease Diabetes mellitus, type II ([facility]) Edema 04/19/2018 2+ pitting History of blood transfusion Hyperlipidemia Hypertension LV dysfunction Non-pressure chronic ulcer of left calf limited to breakdown of skin ([facility]) 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 breakdown of skin ([facility]) Osteoarthritis PAD (peripheral artery disease) ([facility]) Pneumonia Restless leg syndrome S/P aortic valve replacement with bioprosthetic valve 2013 SOB (shortness of breath) Stroke ([facility]) Varicose veins of bilateral lower extremities with other complications Weight gain with edema Home warfarin dose: warfarin 2 mg po daily per med rec Bridging agent: none Vitamin K use: No; (if yes, indicate date, dose, and route) Diet: PO Recent Labs Lab 09/10/24 0547 09/11/24 0358 09/12/24 0312 HGB 11.7* 10.4* 10.8* HCT 39.8 34.9* 35.6* PLT 107* 103* 129* AST -- 22 -- ALT -- 30 -- ALKP -- 110 -- ALB -- 2.4* -- Date INR Dose Received 08/28 5.4 per [facility] paperwork - 08/29 - - 08/30 2.7 2 mg at [facility] 08/31 1.8 - 09/01 1.6 2 mg 09/02 1.9 2 mg 09/03 2.6 hold 09/04 3.7 hold 09/05 2.2 2 mg 09/06 1.7 Missed dose as was npo 09/07 1.4 2 mg 09/08 1.8 1 mg 1/18 1.5 2 mg 09/10 1.3 2 mg 09/11 1.3 2 mg 09/12 1.4 2.5 mg 09/13 1.2 Drug interactions: Potential to increase INR: Potential to decrease INR: - Potential to increase the risk of bleeding: aspirin, sertraline Warfarin Sensitivity: high, based on the following risk factors: albumin < or = to 2.5, concomitant antiplatelet therapy, thrombocytopenia, age 66-79, 1 moderate drug interaction, and diagnosis ofheart failure. Hgb/Hct today are stable INR today subtherapeutic INR dropping today despite home dose, will increase dose today The plan is to give 4 mg tonight. Will recheck an INR in the morning to assist with subsequent dosing. Pharmacy will continue to monitor labs and notes daily, adjusting the dose as clinically appropriate. Thank you for the consult. Pharmacy to dose per Dr. Neftali Presley, PharmD, [facility] Phone number: [phone] 09/13/2024 9:38 AM ROOM SUPERVISOR * Casandra Johnston - 09/13/2024 9:38 AM CST Per [employer], [facility] auth for [facility] [employer] is still pending. 1602 - [employer] [facility] auth is approved for [place] [employer]. [id number]. 09/13-09/19. RNCM notified. ROOM SUPERVISOR ROOM SUPERVISOR * Ann Marie Do RN - 09/13/2024 1:21 AM CSTSummary: progress Problem: Discharge Planning Goal: Knowledge of discharge [...] of new skin breakdown Outcome: Progressing Problem: Reduced risk for falls/injury Goal: Reduced Risk for Falls/Injury Outcome: Progressing Goal: Reduced Risk of Confusion (Acute vs Chronic) Outcome: Progressing Goal: Reduced Risk of Symptomatic Depression Outcome: Progressing Goal: Reduced Risk of Altered Elimination Outcome: Progressing Goal: Reduced Risk of Dizziness/Vertigo/Balance Outcome: Progressing Goal: Reduced Risk of Polypharmacy Outcome: Progressing Problem: Infection - Risk of, Urinary Catheter-Associated Urinary Tract Infection Goal: Absence of Urinary Catheter Associated Urinary Tract (UTI) Infection Signs and Symptoms Outcome: Progressing Problem: Swallowing Goal: STG - Pt will participate in Modified Barium Swallow Study to assess physiology and anatomy of swallow and to determine appropriate diet and/or rehab exercises Outcome: Progressing Problem: Infection - Risk of, Central Venous Catheter-Associated Bloodstream Infection Goal: Absence of Central Venous Catheter Associated Bloodstream Infection Signs and Symptoms Outcome: Progressing Problem: Swallowing Goal: STG - Pt will tolerate the least restrictive diet without clinical signs symptoms of aspiration Outcome: Progressing ROOM SUPERVISOR * Iveth Tanner RN - 09/12/2024 2:22 PM CSTSummary: IDR 09/12/24 1030 Interdisciplinary Group Conference Team Members Present Case/Care management;Nursing Patient Current Status Paient current status Inpatient Barriers to Discharge Inpatient Review Barriers to Discharge Inpatient Complex - Social and/or Medical;Administering IV meds;Post-Acute Authorization Needed Complex - Social and/or Medical follow up Afib/O2 @ 2L/Picc Line Post-Acute Authorization Needed follow up Accepted @ [facility] Patient expects to be discharged to Patient expects to be discharged to: [facility]( [facility]) ROOM SUPERVISOR * CONSTANTIN Mckeon - 09/12/2024 12:05 PM CST SPEECH THERAPY TREATMENT NOTE Patient Name: Oibe Sims : 1955 Date of Session: 09/12/2024 Primary Diagnosis: CHF exacerbation ([facility]) Recommendations: 1.Minced and Moist / Mildly Thick Liquid diet 2.Aspiration precautions--upright with all PO intake, meds crushed in puree, oral care, alternate bite/sip, slow rate 3.Continued ST services for dysphagia management SUBJECTIVE: Spoke with RN, Hazel, who cleared pt to participate in ST tx. Pt was alert and agreeable to tx / re-evaluation. Of note, pt demonstrated coughing prior to CYTOLOGY TEACHER walking into pt's room. Pain Score: none reported Location: Tolerable: Communication: verbal Patient Goal: upgrade diet Plan of Care Reviewed: yes OBJECTIVE: Skilled Interventions: Pt participated in swallowing tx/re-evaluation. Pt consumed ~4 oz moderatelythick liquid via cup/straw/tsp sip, ~4 oz mildly thick liquid via tsp/straw/cup sip, ~2 oz puree via tsp, and minced and moist PO trials x 12 tsp. No anterior loss. Mildly prolonged mastication of minced and moist PO trials. Trace oral residue following the swallow of minced and moist PO trials, cleared with liquid wash. Absent wet vocal quality throughout entire evaluation. Pt demonstrated immediate cough x 2 following first trial of moderately thick liquid via cup sip and delayed cough x 1 following the swallow of first trial of puree viatsp. Pt did not demonstrate any other overt s/s of aspiration with remainder of trials including minced and moist / mildly thick liquid trials. Pt benefited from slow rate and alternating bite/sips. Pt unable to recall MOUSTAPHA results and / or pharyngeal strengthening exercises. Following re-education, pt completed effortful swallow x 7 reps given moderate cueing and extended time. Endurance/Vitals: WBC 13.55, slight decrease XR CHEST 09/09/24 IMPRESSION: 1. CARDIOMEGALY WITH INTERVAL INCREASE IN PULMONARY VASCULAR CONGESTION AND EDEMA. Education Provided : CYTOLOGY TEACHER provided verbal education to pt re: role of CYTOLOGY TEACHER, tx rationale, aspiration risk/signs, diet recommendations, safe swallowing strategies, pharyngeal strengthening exercises, and POC. Pt v/u. ASSESSMENT Pt with increased tolerance of oral diet this date as evidenced by pt not demonstrating any overt s/s of aspiration with mildly thick liquid / minced and moist trials with use of safe swallowing strategies--slow rate and alternating bites/sips. Of note, pt demonstrated coughing prior to PO intake and immediate cough x 2 following first trial of moderately thick liquid via cup sip and delayed cough x 1 following the swallow of first trial of puree via tsp. Recommend upgrade to Minced and Moist / Mildly thick liquid with aspiration precautions--upright with all PO intake, meds crushed in puree, oral care, alternate bite/sip, slow rate. If pt demonstrates decline in respiratory statu s/chest imaging, recommend downgrade to moderately thick liquids. Interdisciplinary Communication: RNHazel; messaged Dr. Herman via [employer] chat Barriers/Safety: comorbidities Nursing Recommendations: meds crushed in puree, upright with PO intake, alternate bite/sip Upon completion of session patient disposition: Pt was left sitting upright in chair with call light within reach. PLAN: ST to follow to monitor diet tolerance and continue pharyngeal strengthening. CURRENT DIET: puree / mod--> minced and moist / mildly thick liquid CONSTANTIN Mckeon Time In: 1216 Time Out: 1251 ROOM SUPERVISOR * Juanpablo Herman MD - 09/12/2024 11:41 AM CST Images from the original note were not included. [employer] Hospitalist Progress note Chief Complain: Respiratory failure ASSESSMENT /PLAN: Obie Sims is an 69-year-old male with a past medical history of CKD stage III, atrial fibrillation on warfarin, heart failure with reduced ejection fraction, coronary artery disease, aortic stenosis status post bioprosthetic aortic valve replacement, pulmonary hypertension, COPD/asthma, obstructive sleep apnea, hyperlipidemia, diabetes mellitus type 2, CVA, carotid disease, anxiety/depression, hypertension, PAD, and RLS. He was transferred to [facility] with BRITTANY and hyperkalemia. During this hospitalization patient developed worsening hypoxic respiratory failure requiring intubation, transferred to ICU. In ICU he was treated with IV Lasix drip and also treated for possible aspiration pneumonia. Now extubated, transferred out of ICU ON 09/07/2023 Acute on chronic heart failure with reduced ejection fraction Anasarca Pulmonary hypertension Valvular heart disease Acute respiratory failure with hypoxia/hypercarbia -Echocardiogram from February 2024 reveals an ejection fraction of 40 to 45% with bioprosthetic aortic valve, no central or periprosthetic aortic regurgitation, mild mitral regurgitation, and mild tricuspid regurgitation. Worsening hypoxic respiratory failure requiring ICU admission, intubation -Strict intake and output with daily weights. Monitor renal functions -Holding Entresto in light of BRITTANY. Will resume imxn-[id number]-[id number] dose -[facility] nephrology consulted. Nephrology dosing diuretics as and when needed Cardiology following, appreciate recommendations- Continue BiPAP at night for hypercapnic respiratory failure. Patient will need Arranged at rehab Creatinine improving monitor Monitor respiratory status closely Pneumonia-HCAP versus aspiration Completed antibiotic course. Treated with Zosyn Encourage incentive spirometry Supplemental oxygen as needed BRITTANY on CKD stage III improving Hyperkalemia, resolved Hypernatremia Sodium improving Monitor renal functions, nephrology following Renal functions improving Ground-level fall Rib fractures Generalized weakness -CT of the chest shows acute fractures of the seventh and eighth right ribs. -PT/OT consult. -Pain control. -Incentive spirometer. Concern for pneumonia probably HCAP versus aspiration Completed antibiotic course hematuria -UA negative. -Likely due to traumatic Oneill insertion and/or trauma to Oneill in setting of supratherapeutic INR.Initial UA with no RBCs. Resolved, monitor Atrial fibrillation Supratherapeutic INR, resolved Nonsustained ventricular tachycardia -INR was 5.4 on presentation. -Continue beta-kim for rate control. -Pharmacy consulted for Coumadin dosing. Monitor INR -Monitor telemetry. nonsustained ventricular tachycardia-will add small dose of beta-kim Continue current regimen, cardiology following. Appreciate cardiology Diabetes mellitus type 2 -Continue Jardiance. Continue sliding scale insulin and Lantus as indicated Coronary artery disease Hypertension Hyperlipidemia -Heart catheterization from 2020 revealed a 60% proximal LAD stenosis, 50% ostial RCA stenosis, bioprosthetic aortic valve without aortic regurgitation, and severe pulmonary hypertension. Will add small dose of beta-blockers, continue statins -Monitor telemetry. COPD/asthma overlap syndrome Hypercarbic respiratory failure-rate COPD exacerbation Continue bronchodilators. prednisone 40 mg daily-total 5 days Already on antibiotics Oral thrush add nystatin CVA Carotid disease PAD -Continue aspirin and statin. Body mass index is 32.91 kg/m??. DVT Prophylaxis:on warfarin Code Status: DNR Not Medically Ready/Awaiting Clinical Improvement Anticipate discharge to help in 1 to 2 days time once respiratory shortness improved and remained stable SUBJECTIVE Patient seen and examined. Patient sitting in chair feels well. Denies any complaints of chest pain, shortness of breath. Reports shortness of breath improving OBJECTIVE Blood pressure 118/70, pulse 69, temperature 96.3 ??F (35.7 ??C), temperature source Temporal, resp. rate 16, height 1.676 m (5' 6 ), weight 92.5 kg (203 lb 14.8 oz), SpO2 100%. Wt Readings from Last 3 Encounters: 09/12/24 92.5 kg (203 lb 14.8 oz) 08/24/24 106.6 kg (235 lb) 08/03/24 103 kg (227 lb) Review of Systems All other systems reviewed and are negative. Physical Exam Constitutional: Appearance: He is well-developed. HENT: Head: Normocephalic and atraumatic. Eyes: Pupils: Pupils are equal, round, and reactive to light. Cardiovascular: Rate and Rhythm: Normal rate and regular rhythm. Heart sounds: No murmur heard. No friction rub. Pulmonary: Breath sounds: No wheezing or rales. Chest: Chest wall: No tenderness. Abdominal: General: Bowel sounds are normal. Palpations: Abdomen is soft. Tenderness: There is no abdominal tenderness. There is no guarding or rebound. Musculoskeletal: General: Normal range of motion. Cervical back: Normal range of motion and neck supple. Skin: General: Skin is warm and dry. Findings: No rash. Neurological: Mental Status: He is alert and oriented to person, place, and time. LABS: Recent Labs 09/10/24 0547 09/11/24 0358 09/12/24311 WBC 11.75* 13.97* 13.55* HGB 11.7* 10.4* 10.8* HCT 39.8 34.9* 35.6* MCV 97.8 94.8 94.9 PLT 107* 103* 129* RBC 4.07* 3.68* 3.75* Recent Labs 09/10/24 0549 09/11/24 0358 09/12/24311 ALT -- 30 -- AST -- 22 -- CO2 28.8 31.7 31.9 CL 114 104 102 GLU 330* 224* 304* K 3.6 3.5 4.3 NA 147* 140 137 BUN 37* 36* 39* Intake/Output Summary (Last 24 hours) at 09/12/2024 1141 Last data filed at 09/12/2024 1100 Gross per 24 hour Intake 2140 ml Output 1550 ml Net 590 ml Microbiology Results (last 14 days) Procedure Component Value Units Date/Time MRSA PCR nares Screening [[id number]] Collected: 09/07/24 0848 Order Status: Sent Lab Status: No result Specimen: NASAL CULTURE, RESPIRATORY W/ GRAM STAIN [[id number]] Collected: 09/05/24 0740 Order Status: Completed Lab Status: Preliminary result Updated: 09/08/24 0640 Specimen: TRACHEAL ASPIRATE SPEC DESCRIPTION TRACHEAL ASPIRATE SPECIAL REQUESTS NO SPECIAL REQUEST GRAM STAIN RESULT <10 EPITHELIAL CELLS PER LPF GRAM STAIN RESULT >25 NEUTROPHILS PER LPF GRAM STAIN RESULT NO ORGANISMS SEEN CULTURE RESULT NO GROWTH 3 DAYS Gastric PH [[id number]] Order Status: No result Lab Status: No result Specimen: GASTRIC FLUID CULTURE, BACTERIA BLOOD [[id number]] Collected: 09/03/24 1223 Order Status: Completed Lab Status: Preliminary result Updated: 09/07/241926 Specimen: BLOOD SPEC DESCRIPTION BLOOD SPECIAL REQUESTS NO SPECIAL REQUEST CULTURE RESULT NO GROWTH 4 DAYS CULTURE, URINE [[id number]] Collected: 09/01/24 1110 Order Status: Completed Lab Status: Final result Updated: 09/03/24 0835 Specimen: URINE, CLEAN CATCH SPEC DESCRIPTION URINE CLEAN CATCH SPECIAL REQUESTS NO SPECIAL REQUEST CULTURE RESULT NO GROWTH (< OR = 1,000 CFU/ML) CULTURE, BACTERIA BLOOD X2 [[id number]] Collected: 08/31/24 1034 Order Status: Completed Lab Status: Final result Updated: 09/06/24 0011 Specimen: BLOOD SPEC DESCRIPTION BLOOD SPECIAL REQUESTS NO SPECIAL REQUEST CULTURE RESULT NO GROWTH 5 DAYS Radiology MEDICATIONS Scheduled medications acetylcysteine 10 % 200 mg Nebulization 2 times daily allopurinol 200 mg Oral Daily aspirin 81 mg Oral Daily atorvastatin 80 mg Oral Nightly at bedtime clotrimazole-betamethasone Topical Q12H folic acid 1 mg Oral Daily insulin glargine 40 Units Subcutaneous Nightly at bedtime insulin lispro 0-6 Units Subcutaneous 4x Daily AC and at bedtime ipratropium-albuterol 3 mL Nebulization Q4H nystatin 5 mL Oral 4x Daily nystatin Topical BID predniSONE 40 mg Oral Daily pregabalin 150 mg Oral BID senna-docusate 1 tablet Oral BID sertraline 50 mg Oral Daily traZODone 300 mg Oral Nightly at bedtime warfarin (COUMADIN) pharmacy to dose Oral See Admin Instructions warfarin 2.5 mg Oral Once Infusion PRN acetaminophen, albuterol, glucose, dextrose 10 % bolus, [DISCONTINUED] fentaNYL AND [DISCONTINUED] fentaNYL AND fentaNYL, glucagon, HYDROcodone- acetaminophen, HYDROmorphone, hydrOXYzine, naLOXone, ondansetron, polyethylene glycol JUANPABLO HERMAN MD 11:41 AM 09/12/2024 ROOM SUPERVISOR ROOM SUPERVISOR * Iveth Tanner RN - 09/12/2024 10:30 AM CSTSummary: IDR 09/12/24 1030 Interdisciplinary Group Conference Team Members Present Case/Care management;Nursing Patient Current Status Paient current status Inpatient Barriers to Discharge Inpatient Review Barriers to Discharge Inpatient Complex - Social and/or Medical;Administering IV meds Administering IV meds follow up -- Complex - Social and/or Medical follow up Afib/O2 @ 2L/Picc Line Patient expects to be discharged to Patient [facility] to be discharged to: [facility]( [facility]F) ROOM SUPERVISOR * JAKE Lizama - 09/12/2024 8:55 AM CST OT Treatment Discharge Recommendation: OT/PT at SNF Activity Recommendation for pediatric assistant: up with 2, gait belt, 2ww. Chair for all meals. 09/12/24 0830 Therapy Visit Reason for admission Pt presents with BRITTANY, hyperkalemia, and acute on chronic systolic CHF. Of notept with recent GLF 08/18 with right 7-8 rib fxs. Pt with respiratory failure and COPD exacerbation 09/03 and required intubation. Pt extubated 09/06. 09/11 pt with 11 beats of v tach. ..........PMH: afib, LV dysfunction, CAD, hypertension aortic stenosis, chronic anticoagulation, s/p aortic valve replacement, varicose veins, claudication, nstemi, pulmonary hypertension, CHF, copd, obstructive sleep apnea, asthma, hyperlipidemia, diabetes mellitus type 2, TIA, arthritis, carotid disease, rib fractures, chronic venous insufficiency...............Therapy orders: eval and treat. Ordering Provider MD Herman Verified Two Patient Identifiers Yes Patient consents to therapy Yes Acute Inpatient OT Time Calculation OT Start Time 0830 OT Stop Time 0855 OT Time Calculation (min) 25 min Precautions General Precautions Bed Alarm;Chair Alarm;Fall Risk;Supplemental oxygen Instructed on Precautions Yes;Verbalizes understanding Other telemetry, purewick, 3L O2 NC Prior Function PLOF Comments Per Eval: Pt lives with his [...] riser. Since last admission patient reports he hasbeen working with home health PT and was about to be discharged from their services secondary to good progress. Does not have 24/[address] Subjective Subjective RN ok'd therapy session at this time and pt agreeable to participation. Pt seen in room 516 and gait belt used during session for transfers/mobility. Pt lying supine in bed upon arrival and in chair at departure with alarm in place and activated. Pain Pain No Activity Tolerance Activity Tolerance Comments Pt activity tolerance slowly improving. Cognition Overall Cognitive Status WFL Orientation Level Oriented X4 Following Commands Follows one step commands without difficulty ADL Grooming Assistance Minimal;Sitting in chair Grooming Deficit Wash/dry hands;Wash/dry face;Brushing hair Grooming Comment Pt required min A to brush hair on top and back due to limited shoulder ROM. UE Dressing Assistance Minimal;Sitting in chair UE Dressing Deficit Thread RUE;Thread LUE UE Dressing Comment min A to don gown due to decreased shoulder ROM. LE Dressing Assistance Maximal;Sitting in chair LE Dressing Deficit Don/doff R sock;Don/doff L sock LE Dressing Comment decreased dynamic reach Bed Mobility Supine to Sit Min assist to right Other (Comment) cues to bring LEs to EOB and min A overall to elevate trunk. Functional Transfers Sit to Stand Min assist Bed to Chair Min assist;Assist of 2 Functional Mobility Pt performed functional mobility in room x 2 trials with use of 2ww and CGA mocking very short household distances with a close chair follow. Pt fatigued quickly. Balance Sitting - Static SBA Sitting - Dynamic CGA Standing - Static CGA;Assist of 2 Persons;Support of both upper extremities Standing - Dynamic CGA;Min Assist;Assist of 2 Persons;Support of both upper extremities Other (Comment) Pt generally unsteady, but no overt LOB noted. Pt required min A to step to chair from EOB. Once given 2ww for mobility only required CGA. OT Assessment OT Assessment Pt making progress toward OT goals at this time. Pt transfers improved and was able to mobilize with chair follow this date. Pt continues to be limited by shoulder ROM, weakness, fatigue, and deconditioning. Pt would continue to benefit from skilled OT in the acute setting and then SNF at d/c to improve transfers, mobility, activity tolerance, and ADL independence to maximize performance and ensure a safe d/c plan. Discharge Recommendation OT Recommendation OT at correction facility Plan Progress Progressing toward goals OT - Next Appointment 09/12/24 If this is the last treatment note, it will serve as the discharge summary Yes End of Session End of Session Safety Chair alarm set/activated;Call light within reach;Nursing aware of session Education: Primary Learners Name: Obie Sims Primary Language of learner: Bangladeshi Patient was educated on transfers ADLs balance bed mobility therapy plan safety. Education was completed one to one this date. Preference of learning new concepts one to one Barriers to education this date were fatigue. Response to education this date needs follow up needs assistance. ROOM SUPERVISOR * Yanni Presley, AaliyahD, [facility] - 09/12/2024 8:45 AM CST Warfarin - Pharmacy Dosing Service Note Obie Sims is a 69-year-old male for which pharmacy has been consulted to dose warfarin for A.fib. Goal INR is 2-3. Warfarin Order Set Activated: Yes Warfarin Start Date: continuation from home Past Medical History: Diagnosis Date Abnormal ankle brachial index ([facility]) Acute on chronic heart failure, unspecified heart failure type ([facility]) Anxiety Aortic valve stenosis Arthritis Asthma, mild persistent ([facility]) 04/06/2021 Atrial fibrillation ([facility]) s/p PVI/[facility] 10/2015 Bilateral leg pain Carotid disease, bilateral ([facility]) CHF (congestive heart failure) ([facility]) Claudication ([facility]) COPD (chronic obstructive pulmonary disease) ([facility]) Coronary artery disease Diabetes mellitus, type II ([facility]) Edema 04/19/2018 2+ pitting History of blood transfusion Hyperlipidemia Hypertension LV dysfunction Non-pressure chronic ulcer of left calf limited to breakdown of skin ([facility]) 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 breakdown of skin ([facility]) Osteoarthritis PAD (peripheral artery disease) ([facility]) Pneumonia Restless leg syndrome S/P aortic valve replacement with bioprosthetic valve 2013 SOB (shortness of breath) Stroke ([facility]) Varicose veins of bilateral lower extremities with other complications Weight gain with edema Home warfarin dose: warfarin 2 mg po daily per med rec Bridging agent: none Vitamin K use: No; (if yes, indicate date, dose, and route) Diet: PO Recent Labs Lab 09/10/24 0547 09/11/24 0358 09/12/24 0312 HGB 11.7* 10.4* 10.8* HCT 39.8 34.9* 35.6* PLT 107* 103* 129* AST -- 22 -- ALT -- 30 -- ALKP -- 110 -- ALB -- 2.4* -- Date INR Dose Received 08/28 5.4 per [facility] paperwork - 08/29 - - 08/30 2.7 2 mg at [facility] 08/31 1.8 - 09/01 1.6 2 mg 09/02 1.9 2 mg 09/03 2.6 hold 09/04 3.7 hold 09/05 2.2 2 mg 09/06 1.7 Missed dose as was npo 09/07 1.4 2 mg 09/08 1.8 1 mg 09/09 1.5 2 mg 09/10 1.3 2 mg 09/11 1.3 2 mg 09/12 1.4 Drug interactions: Potential to increase INR: prednisone (09/09-) Potential to decrease INR: - Potential to increase the risk of bleeding: aspirin, sertraline Warfarin Sensitivity: high, based on the following risk factors: albumin < or = to 2.5, concomitant antiplatelet therapy, thrombocytopenia, age 66-79, 1 moderate drug interaction, and diagnosis ofheart failure. Hgb/Hct today are stable INR today subtherapeutic The plan is to give 2.5 mg tonight. Will recheck an INR in the morning to assist with subsequent dosing. Pharmacy will continue to monitor labs and notes daily, adjusting the dose as clinically appropriate. Thank you for the consult. Pharmacy to dose per Dr. Neftali Presley, PharmD, [facility] Phone number: [phone] 09/12/2024 8:45 AM ROOM SUPERVISOR * Ann Marie Do RN - 09/12/2024 3:09 AM CSTSummary: progressing Problem: Discharge Planning Goal: Knowledge of discharge [...] of new skin breakdown Outcome: Progressing Problem: Reduced risk for falls/injury Goal: Reduced Risk for Falls/Injury Outcome: Progressing Goal: Reduced Risk of Confusion (Acute vs Chronic) Outcome: Progressing Goal: Reduced Risk of Symptomatic Depression Outcome: Progressing Goal: Reduced Risk of Altered Elimination Outcome: Progressing Goal: Reduced Risk of Dizziness/Vertigo/Balance Outcome: Progressing Goal: Reduced Risk of Polypharmacy Outcome: Progressing Problem: Infection - Risk of, Urinary Catheter-Associated Urinary Tract Infection Goal: Absence of Urinary Catheter Associated Urinary Tract (UTI) Infection Signs and Symptoms Outcome: Progressing Problem: Swallowing Goal: STG - Pt will participate in Modified Barium Swallow Study to assess physiology and anatomy of swallow and to determine appropriate diet and/or rehab exercises Outcome: Progressing Problem: Infection - Risk of, Central Venous Catheter-Associated Bloodstream Infection Goal: Absence of Central Venous Catheter Associated Bloodstream Infection Signs and Symptoms Outcome: Progressing Problem: Swallowing Goal: STG - Pt will tolerate the least restrictive diet without clinical signs symptoms of aspiration Outcome: Progressing ROOM SUPERVISOR * Noa Burns MD - 09/11/2024 5:40 PM CST [facility] Nephrology Progress Note Obie Sims is a 69-year-old male patient. Seen for brittany HPI 69-year-old gentleman with past medical history significant for CKD stage III, atrial fibrillation,heart failure with reduced ejection fraction, coronary disease, aortic stenosis status post bioprosthetic aortic valve placement, pulmonary hypertension, COPD, obstructive sleep apnea, dyslipidemia, diabetes mellitus type 2, stroke, anxiety, hypertension, restless leg syndrome who presented due to BRITTANY and hyperkalemia. Patient had a fall on 08/18/2024, initially declined treatment but ultimately presented to outside ED 2 days ago with rib pain and knee pain. He also reported shortness of breath and lower extremity swelling. His creatinine was found to be 2 with potassium 5.9. Patient transferred to [facility] for BRITTANY and hyperkalemia management. Nephrology consulted to manage kidney diseas Subjective Doing better Review Of Systems 12 point negative Current Facility-Administered Medications Medication Dose Route Frequency Provider Last Rate Last Admin acetaminophen (TYLENOL) tablet 650 mg 650 mg Oral Q4H PRN Keyona Miller MD acetylcysteine 10 % (MUCOMYST) inhalation solution 200 mg 200 mg Nebulization 2 times daily Juanpablo Herman MD 200 mg at 09/11/24 0818 albuterol (PROVENTIL) (2.5 MG/3ML) 0.083% nebulizer solution 2.5 mg 2.5 mg Nebulization Q2H PRN Keyona Miller MD 2.5 mg at 09/04/24 0724 allopurinol (ZYLOPRIM) tablet 200 mg 200 mg Oral Daily Keyona Miller MD 200 mg at 09/11/24 0916 aspirin chewable tablet 81 mg 81 mg Oral Daily Keyona Miller MD 81 mg at 09/11/24 0916 atorvastatin (LIPITOR) tablet 80 mg 80 mg Oral Nightly at bedtime Keyona Miller MD 80mg at 09/10/24 1932 clotrimazole-betamethasone (LOTRISONE) cream Topical Q12H Nikolas Jiménez MD Given at 09/11/24 0919 dextrose (GLUTOSE) 40 % oral gel 37.5-75 g 15-30 g of dextrose Oral PRN Keyona Miller MD dextrose 10 % bolus infusion 125-250 mL 125-250 mL Intravenous PRN Keyona Miller MD Stopped at 09/06/24 1640 fentaNYL (SUBLIMAZE) injection 25 mcg 25 mcg Intravenous Q10 Min PRN Keyona Miller MD folic acid (FOLVITE) tablet 1 mg 1 mg Oral Daily Keyona Miller MD 1 mg at 09/11/24 0916 glucagon injection 1 mg 1 mg Intramuscular Once PRN Keyona Miller MD HYDROcodone-acetaminophen (NORCO) 5-325 MG tablet 1 tablet 1 tablet Oral Q4H PRN Keyona Miller MD HYDROmorphone (DILAUDID) injection 0.2 mg 0.2 mg Intravenous Q2H PRN Nikolas Jiménez MD 0.2 mg at 09/04/24 1620 hydrOXYzine (ATARAX) tablet 50 mg 50 mg Per NG Tube TID PRN Keyona Miller MD insulin glargine (LANTUS) injection 40 Units 40 Units Subcutaneous Nightly at bedtime Keyona Abarca MD 40 Units at 09/10/24 1933 insulin lispro (HUMALOG/ADMELOG) injection 0-6 Units 0-6 Units Subcutaneous 4x Daily AC and at bedtime Juanpablo Herman MD 6 Units at 09/11/24 1643 ipratropium-albuterol (DUONEB) 0.5-2.5 (3) MG/3ML nebulizer solution 3 mL 3 mL Nebulization Q4H Juanpablo Herman MD 3 mL at 09/11/24 1640 naLOXone (NARCAN) injection 0.4 mg 0.4 mg Intravenous PRN Nikolas Jiménez MD nystatin (MYCOSTATIN) 970954 UNIT/ML suspension 5 mL 5 mL Oral 4x Daily Nikolas Jiménez MD 5 mL at 09/11/24 1640 nystatin (MYCOSTATIN) powder Topical BID Nikolsa Jiménez MD Given at 09/11/24 0919 ondansetron (ZOFRAN) injection 4 mg 4 mg Intravenous Q8H PRN Nikolas Jiménez MD polyethylene glycol (GLYCOLAX) packet 17 g 17 g Oral Daily PRN Keyona Miller MD predniSONE (DELTASONE) tablet 40 mg 40 mg Oral Daily Juanpablo Herman MD 40 mg at 09/11/24 0916 pregabalin (LYRICA) capsule 150 mg 150 mg Oral BID Keyona Miller MD 150 mg at 09/11/24 0916 senna-docusate (SENOKOT-S) 8.6-50 MG tablet 1 tablet 1 tablet Oral BID Keyona Miller MD 1 tablet at 09/11/24 0917 sertraline (ZOLOFT) tablet 50 mg 50 mg Oral Daily Keyona Miller MD 50 mg at 09/11/24 0916 traZODone (DESYREL) tablet 300 mg 300 mg Oral Nightly at bedtime Juanpablo Paresh Herman MD 300 mg at 09/10/24 1933 warfarin (COUMADIN) pharmacy to dose placeholder Oral See Admin Instructions Nikolas Jiménez MD No Known Allergies Principal Problem: CHF exacerbation ([facility]) SNOMED CT(R): ACUTE EXACERBATION OF CHRONIC CONGESTIVE HEART FAILURE Filed Vitals: 09/11/24 0852 09/11/24 0855 09/11/24 1129 09/11/24 1551 BP: 132/87 122/69 120/67 Pulse: 73 76 77 Resp: Temp: 97.8 ??F (36.6 ??C) 97.6 ??F (36.4 ??C) 98 ??F (36.7 ??C) TempSrc: Axillary Axillary Oral SpO2: (!) 83% 100% 100% 100% Weight: Height: Last 3 Recorded Weights 09/04/24 1100 09/08/24 0500 09/11/24 0526 Weight: 88.8 kg (195 lb 12.3 oz) 89.5 kg (197 lb 5 oz) 89.7 kg (197 lb 12 oz) Intake/Output Summary (Last 24 hours) at 09/11/2024 1740 Last data filed at 09/11/2024 1551 Gross per 24 hour Intake 1540 ml Output 1900 ml Net -360 ml Physical Exam: -GENERAL: No acute distress, breathing comfortably on room air. -EYES: Extraocular movements intact -ENT: Neck supple, Septum is midline. -LUNG: Clear to auscultation bilaterally, No wheezes, No crackles -CVS: Regular rate rhythm, S1 and S2 normal, No murmurs, -ABDOMEN: Soft, nondistended, Nontender, Bowel sounds observed -EXT: no lower Ext edema. There is no evidence of edema or ischemia -NEURO: Alert, awake, oriented x3, No gross neuro deficit -SKIN: Skin color, texture, turgor normal. No rashes or lesions LABs Recent Labs Lab 09/05/24 0400 09/05/24 1110 09/06/24 0430 09/06/24 1249 09/06/24 2030 09/07/24 0342 09/08/24 0453 09/09/24 0610 09/10/24 0549 09/11/24 0358 NA 152* < > 153* 158* 157* 157* 151* 149* 147* 140 K 3.2* < > 3.8 3.5 4.1 3.8 3.4* 3.6 3.6 3.5 CL 114 < > 120* 124* 125* 124* 117* 115 114 104 CO2 30.7 < > 31.6 32.0 30.4 30.4 32.3* 29.3 28.8 31.7 AGAP 7.3 < > 1.4* 2.0 1.6* 2.6 1.7* 4.7 4.2 4.3 BUN 64* < > 68* 63* 59* 52* 41* 36* 37* 36* CR 2.44* < > 2.16* 1.97* 1.83* 1.78* 1.67* 1.66* 1.52* 1.52* GLU 191* < > 189* 70* 85 146* 136* 277* 330* 224* CA 9.2 < > 9.8 8.7 8.8 8.8 9.2 9.2 8.9 8.6 MAGNESIUM 2.6 -- 2.8* -- -- 2.7* 2.8* 3.1* 2.9* 2.4 PHOS 2.8 -- 3.1 -- -- 3.4 3.1 3.0 2.3* 3.1 < > = values in this interval not displayed. Recent Labs Lab 09/05/24 0400 09/06/24 0430 09/07/24 0342 09/08/24 0453 09/09/24 0610 09/10/24 0547 09/11/24 0358 WBC 19.33* 13.94* 13.95* 15.12* 12.18* 11.75* 13.97* RBC 4.30* 4.09* 4.07* 3.91* 4.08* 4.07* 3.68* HGB 12.3 11.7* 11.5* 11.1* 11.7* 11.7* 10.4* HCT 39.5 38.6 39.2 37.6 40.1 39.8 34.9* MCV 91.9 94.4 96.3 96.2 98.3 97.8 94.8 MCH 28.6 28.6 28.3 28.4 28.7 28.7 28.3 MCHC 31.1* 30.3* 29.3* 29.5* 29.2* 29.4* 29.8* PLT 137* 112* 109* 107* 102* 107* 103* RDW 15.9* 16.1* 16.0* 15.9* 15.8* 15.8* 15.5* MPV 12.9* 12.6* 12.5* 12.5* 13.2* 14.3* 13.8* Assessment/Plan: 69-year-old gentleman with past medical history significant for CKD stage III, atrial fibrillation,heart failure with reduced ejection fraction, coronary disease, aortic stenosis status post bioprosthetic aortic valve placement, pulmonary hypertension, COPD, obstructive sleep apnea, dyslipidemia, diabetes mellitus type 2, stroke, anxiety, hypertension, restless leg syndrome who presented due to BRITTANY and hyperkalemia. Patient had a fall on 08/18/2024, initially declined treatment but ultimately presented to outside ED 2 days ago with rib pain and knee pain. He also reported shortness of breath and lower extremity swelling. His creatinine was found to be 2 with potassium 5.9. Patient transferred to [facility] for BRITTANY and hyperkalemia management. BRITTANY on CKD stage III -Baseline creatinine 1.3-1.5. Patient also follows with Dr. Beltran -At outside hospital creatinine was 2.0, patient received fluids and creatinine increased to 2.8. This is likely related to hemodynamics/fluid overload. -Renal ultrasound showed suboptimal visualization of right kidney. No right sided hydronephrosis. No increase echogenicity. Right kidney 11.6 cm. Left kidney was not seen. -CPK normal, urinalysis 3+ blood and a mild protein WBCs 27 RBCs greater than 182, urine sodium of 88. BRITTANY serology negative -Initial chest x-ray showed pulmonary vascular congestion and interstitial edema -s/p aggressive IV diuresis. Net -20 liter uf and weight down 22 kilos -Most recent creatinine 1.52 -Most current doses of Bumex and chlorothiazide IV was given yesterday in September 10. -Strict I's/O, avoid nephrotoxins 2. HTN. -Blood pressure stable -Continue to avoid STEVIE/ARB 3. Anemia of chronic disease. Hemoglobin stable 4. Electrolytes. -Hypernatremia. Give thiazide diuretics 5. Renal osteodystrophy. Calcium and phosphorus levels are okay 6. Disposition stable Thank you for allowing me to participate in the care of this patient. We will continue to follow this patient with you. Please contact us with further questions. NOA BURNS MD 09/11/2024 ROOM SUPERVISOR * Opal Savannah Early, PT - 09/11/2024 3:44 PM CSTSummary: Physical Therapy Evaluation PT Initial Evaluation Discharge Recommendation: OT/PT at SNF Activity Recommendation for pediatric assistant: up with one and 2ww 09/11/24 1400 Therapy Visit Ordering Provider MD Herman PT Received On 09/11/24 Subjective PT supine in bed upon entering room. Pt agreeable to evaluation and RN oking therapy session. Reason for admission Pt presents with BRITTANY, hyperkalemia, and acute on chronic systolic CHF. Of notept with recent GLF 08/18 with right 7-8 rib fxs. Pt with respiratory failure and COPD exacerbation 09/03 and required intubation. Pt extubated 09/06. 09/11 pt with 11 beats of v tach. ..........PMH: afib, LV dysfunction, CAD, hypertension aortic stenosis, chronic anticoagulation, s/p aortic valve replacement, varicose veins, claudication, nstemi, pulmonary hypertension, CHF, copd, obstructive sleep apnea, asthma, hyperlipidemia, diabetes mellitus type 2, TIA, arthritis, carotid disease, rib fractures, chronic venous insufficiency...............Therapy orders: eval and treat. Verified Two Patient Identifiers Yes Patient consents to therapy Yes Acute Inpatient PT Time Calculation PT Start Time 1450 PT Stop Time 1510 PT Time Calculation (min) 20 min Precautions General Precautions Bed Alarm;Chair Alarm;Fall Risk;Supplemental oxygen Instructed on Precautions Yes;Verbalizes understanding Other tele, IV, oneill, 3 L O2 Prior Function PLOF Comments Pt lives with [...] Does not have 15/[address] Activity Tolerance Limiting Factors to Endurance Acute deconditioning;Fatigue;Shortness of breath;Weakness Cognition Overall Cognitive Status WFL Orientation Level Oriented X4 Comments Pt alert and oriented, soft voice with SOB. Sensation Light Touch No apparent deficits Overall Extremity Assessment Lower Extremity bilat LE hip flex 3+/5, knee ext 4/5, ankle df 4+/5 Bed Mobility Supine to Sit Min assist to right TRANSFERS Sit to Stand Mod assist Bed to Chair Min assist Other (Comment) sit to stand from bed and chair, R side steps to chair- min assist with posterior lean Gait Other (Comment) Unable to progress to gait, able to march in place bilat LE 7-8x each leg, heavy posterior lean requiredm in assist and pt noted to be resting calves on chair at times. Pt fatigues quickly with increased SOB and unable to attempt further standing. Balance Sitting - Static SBA Sitting - Dynamic CGA Standing - Static Min Assist Standing - Dynamic Min Assist;Mod Assist Other (Comment) STanding with 2ww- posterior lean, able to take R side steps from bed to chair and march in place but unable to progress to gait this date. Increased SOB, requires sitting rest break between each activity. Assessment Prognosis Good Discharge Recommendation PT Recommendation PT at correction Facility Plan PT Treatments/Interventions Gait Training;Manual Therapy;Therapeutic Exercises;Therapeutic Activities;Neuromuscular re-education;Patient/family training PT Frequency 5 times/week PT - Next Appointment 09/11/24 If this is the last treatment note,it will serve as the discharge summary Yes End of Session End of Session Safety Chair alarm set/activated;Call light within reach;Nursing aware of session;Transfer status education Assessment: Pt is 69 yo male admitted with CHF. Prior to admission pt was independent with all ADLs and functional mobility. Pt demonstrates impaired activity tolerance, balance, LE strength and overall functional mobility. Pt would benefit from further therapy during admission to address deficits and maximizesafety and independence with functional mobility. Anticipate pt to require continued therapy at SNFprior to return home to continue addressing deficits and progress pt independence and safety with functional mobility. The below POC to be followed the duration of this admission. Pt. will be able to perform supine to/from sitting at EOB with Independent to improve mobility. 2. Pt. will be able to perform sit to/from standing with CGA using wheeled walker to improve independence. 3. Pt. will be able to ambulate 50 feet with CGA using wheeled walker to help improve strength and functional independence. 4. Pt. will be able to maintain static sitting balance for 5-10 minutes with Independent to improveindependence. 5. Pt. will be able to maintain dynamic sitting balance on soft surface with Independent to improvefunctional mobility. 6. Pt. will be able to maintain static standing balance 5-10 minutes with Independent using wheeledwalker to improve independence. 7. Pt. will be able to maintain dynamic standing balance during side-stepping L/R and marching withIndependent using wheeled walker to improve functional mobility. 8. Pt. will be able to ascend/descend 3 steps with CGA using handrail(s) to increase strength and to safely access home at D/C. Education: Primary Learners Name: Obie Sims Primary Language of learner: Bangladeshi Patient was educated on precautions exercises transfers ADLs balance bed mobility equipment therapy plan gait safety. Education was completed one to one verbal hands-on demonstration this date. Preference of learning new concepts one to one verbal hands-on demonstration Barriers to education this date were fatigue physical impairment. Response to education this date verbalized understanding needs follow up needs assistance. ROOM SUPERVISOR * Oneyda Rand, OT - 09/11/2024 3:10 PM CSTSummary: OT Eval OT Initial Evaluation Discharge Recommendation: OT/PT at [facility] Activity Recommendation for pediatric assistant: pivot transfer to chair or commode with assist x2 or up with Kathleen Steady 09/11/24 1450 Therapy Visit OT Received On 09/11/24 Reason for admission Pt presents with BRITTANY, hyperkalemia, and acute on chronic systolic CHF. Of notept with recent GLF 08/18 with right 7-8 rib fxs. Pt with respiratory failure and COPD exacerbation 09/03 and required intubation. Pt extubated 09/06. 09/11 pt with 11 beats of v tach. ..........PMH: afib, LV dysfunction, CAD, hypertension aortic stenosis, chronic anticoagulation, s/p aortic valve replacement, varicose veins, claudication, nstemi, pulmonary hypertension, CHF, copd, obstructive sleep apnea, asthma, hyperlipidemia, diabetes mellitus type 2, TIA, arthritis, carotid disease, rib fractures, chronic venous insufficiency...............Therapy orders: eval and treat. Ordering Provider MD Herman Verified Two Patient Identifiers Yes Patient consents to therapy Yes Acute Inpatient OT Time Calculation OT Start Time 1450 OT Stop Time 1510 OT Time Calculation (min) 20 min Precautions General Precautions Bed Alarm;Chair Alarm;Fall Risk;Supplemental oxygen Other telemetry, purewick, 3L O2 NC Subjective Subjective RN gave ok prior to therapy evaluations. Pt agreeable to therapy evaluations and provided PLOF information. Prior Function PLOF Comments Pt lives with [...] have 24/[address]. Pain Pain No Objective Objective Pt seen in room 516. Pt in bed upon ent. Gait belt and WW used for all functional mobility. Pt up in chair with call light nearby and chair alarm on upon ext. Activity Tolerance Endurance Quality Fair Limiting Factors to Endurance Acute deconditioning;Fatigue;Shortness of breath;Weakness Activity Tolerance Comments Pt fatigues quickly and SOB. Pt requires rest braeks throughout. Minimal cues for pursed lip breathing. Vision - Basic Assessment Current Vision No visual deficits Vision - Complex Assessment Additional Comments No new visual deficits reported Cognition Overall Cognitive Status WFL Arousal/Alertness Appropriate responses to stimuli Attention Span Appears intact Memory Appears intact Orientation Level Oriented X4 Following Commands Follows one step commands without difficulty Safety Judgment Good awareness of safety precautions Awareness of Errors Assistance required to identify errors made Deficits Fully aware of deficits Problem Solving Assistance required to identify errors made Comments Pt alert and oriented, soft voice with SOB. Pt pleasant and cooperative throughout and motivated to participate. Overall Extremity Assessment Upper Extremity Overall generalized weakness B UEs,approx 4-/5 throughout. Decreased B shoulder ROM, approx 100 degrees due to chronic shoulder problems. Hand Function Hand Dominance Right Gross Grasp Functional Coordination Functional Sensation Light Touch No apparent deficits ADL Grooming Assistance Minimal;Sitting in chair Grooming Deficit Brushing hair Grooming Comment Pt requires min assist to brush the back of his hair due to decreased B shoulder ROM LE Dressing Assistance Maximal;Sitting in chair LE Dressing Deficit Don/doff R sock;Don/doff L sock Bed Mobility Supine to Sit Min assist to right Functional Transfers Sit to Stand Mod assist;Assist of 2 Bed to Chair Min assist;Assist of 2 Functional Mobility Pt completed sit>stand from EOB with mod assist x2. Pt with heavy posterior lean and reuqires increased cueing and assist to correct. Pt completed bed>chair transfer with min assist x2 using the WW. Pt completed sit>stand from chair with mod assist x2. Pt able to march in place with min assist using the WW, but unable to take any steps forward due to fatigue and SOB. Balance Sitting - Static SBA Sitting - Dynamic CGA Standing - Static Min Assist;Support of both upper extremities Standing - Dynamic Min Assist;Mod Assist;Support of both upper extremities Assessment Occupational Profile and History Complexity Moderate (Expanded) Performance Skills Deficits Bathing/showering;Dressing;Functional mobility;Personal hygiene and grooming;Safety and emergency maintenance;Toileting Performance Deficit Level Moderate (3-5 deficits) Clinical Decision Making Moderate (min/mod modifications) Complexity Level of Evaluation Moderate Prognosis Good OT Assess/Eval Other (Comment) Pt is a 69 year old male admitted with BRITTANY, CHF, hyperkalemia and respiratory failure. OT evaluation completed 09/11. Pt presents with weakness, fatigue, SOB, decreased balance, acute on chronic deconitoning, decreased endurance and activity tolerance impacting his abilty to complete ADLs and functional mobility at baseline. Pt would benefit from skilled OT to address above. Pt is unsafe to return home at this time and will require rehab placement upon discharge. Discharge Recommendation OT Recommendation OT at correction facility Plan OT Treatment/Intervention Self-care training;Therapeutic activities;Therapeutic exercises;Patient/family training;Functional activity;Safety OT Frequency 5 times/week OT - Next Appointment 09/11/24 If this is the last treatment note, it will serve as the discharge summary Yes End of Session End of Session Safety Chair alarm set/activated;Call light within reach;Nursing aware of session;Transfer status education Education: Primary Learners Name: Obie Sims Primary Language of learner: Bangladeshi Patient was educated on precautions transfers ADLs balance bed mobility therapy plan safety energy conservation adaptive skills. Education was completed verbal this date. Preference of learning new concepts verbal Barriers to education this date were none. Response to education this date verbalized understanding needs reinforcement. The below POC to be followed until end date, at that time POC to be re-assessed and modified if needed Start. 09/11/24 End: 09/25/24 Pt will complete dressing with Minimal assistance sitting EOB or in chair to increase safety and independence with ADLs. Pt will complete all grooming and self-feeding with Modified [place] to increased safety and independence with ADLs. Pt will complete toileting hygiene and clothing management with Minimal assistance to increase safety and independence with ADLs. Pt to complete bathing with Minimal assistance seated in chair/EOB to increase independence with ADLs. Pt will complete bed mobility with SBA with HOB flat to increase safety and independence with functional transfers. Pt will complete transfers all surfaces to/from all surfaces with CGA using wheeled walker to increase functional mobility and transfers. Pt will participate within skilled therapy services for 20-30 minutes with 1-2 rest breaks to increase independence with ADLs and functional transfers.. Pt will increase dynamic standing balance standing at sink/dressing completing ADLs with CGA with wheeled walker for 5-10 minutes to increase safety and independence with ADLs and functional transfers. Pt to increase B UE MMT to increase strength, safety and independence with ADLs and functional transfers. By: MIKE Howard, OTR/L; 09/11/24 ROOM SUPERVISOR * Casandra Johnston - 09/11/2024 2:44 PM CST [employer] auth requested for [facility]&R - [id number] ROOM SUPERVISOR * Bridget Gentile RN - 09/11/2024 2:40 PM CST Problem: Discharge Planning Goal: Knowledge [...] of new skin breakdown Outcome: Progressing Problem: Reduced risk for falls/injury Goal: Reduced Risk for Falls/Injury Outcome: Progressing Goal: Reduced Risk of Confusion (Acute vs Chronic) Outcome: Progressing Goal: Reduced Risk of Symptomatic Depression Outcome: Progressing Goal: Reduced Risk of Altered Elimination Outcome: Progressing Goal: Reduced Risk of Dizziness/Vertigo/Balance Outcome: Progressing Goal: Reduced Risk of Polypharmacy Outcome: Progressing Problem: Infection - Risk of, Urinary Catheter-Associated Urinary Tract Infection Goal: Absence of Urinary Catheter Associated Urinary Tract (UTI) Infection Signs and Symptoms Outcome: Progressing Problem: Swallowing Goal: STG - Pt will participate in Modified Barium Swallow Study to assess physiology and anatomy of swallow and to determine appropriate diet and/or rehab exercises Outcome: Progressing Problem: Fluid Volume - Imbalanced Goal: Absence of imbalanced fluid volume signs and symptoms Outcome: Progressing Problem: Gas Exchange - Impaired Goal: Adequate oxygenation Outcome: Progressing Problem: Infection - Risk of, Septic Shock Goal: Absence of infection signs and symptoms Outcome: Progressing Problem: Infection - Risk of, Urinary Catheter-Associated Urinary Tract Infection Goal: Absence of infection signs and symptoms Outcome: Progressing Problem: Infection - Risk of, Ventilator-Associated Pneumonia Goal: Absence of infection signs and symptoms Outcome: Progressing Problem: Pain - Acute Goal: Achieve acceptable pain level Outcome: Progressing Goal: Reduced pain sensation Outcome: Progressing Problem: Skin Integrity - Risk of, Impaired Goal: Skin integrity intact Outcome: Progressing Problem: Tissue Perfusion - Cardiopulmonary, Altered Goal: Circulatory function within specified parameters Outcome: Progressing Problem: Venous Thromboembolism - Risk of Goal: Absence of deep venous thrombosis Outcome: Progressing Problem: Infection - Risk of, Central Venous Catheter-Associated Bloodstream Infection Goal: Absence of Central Venous Catheter Associated Bloodstream Infection Signs and Symptoms Outcome: Progressing Problem: Swallowing Goal: STG - Pt will tolerate the least restrictive diet without clinical signs symptoms of aspiration Outcome: Progressing ROOM SUPERVISOR * Juanpablo Herman MD - 09/11/2024 11:26 AM CST Images from the original note were not included. [employer] Hospitalist Progress note Chief Complain: Respiratory failure ASSESSMENT /PLAN: Obie Sims is an 69-year-old male with a past medical history of CKD stage III, atrial fibrillation on warfarin, heart failure with reduced ejection fraction, coronary artery disease, aortic stenosis status post bioprosthetic aortic valve replacement, pulmonary hypertension, COPD/asthma, obstructive sleep apnea, hyperlipidemia, diabetes mellitus type 2, CVA, carotid disease, anxiety/depression, hypertension, PAD, and RLS. He was transferred to [facility] with BRITTANY and hyperkalemia. During this hospitalization patient developed worsening hypoxic respiratory failure requiring intubation, transferred to ICU. In ICU he was treated with IV Lasix drip and also treated for possible aspiration pneumonia. Now extubated, transferred out of ICU ON 09/07/2023 Acute on chronic heart failure with reduced ejection fraction Anasarca Pulmonary hypertension Valvular heart disease Acute respiratory failure with hypoxia/hypercarbia -Echocardiogram from February 2024 reveals an ejection fraction of 40 to 45% with bioprosthetic aortic valve, no central or periprosthetic aortic regurgitation, mild mitral regurgitation, and mild tricuspid regurgitation. Worsening hypoxic respiratory failure requiring ICU admission, intubation Now improving. Hyponatremia requiring withholding diuretics continue diuretics as tolerated -Strict intake and output with daily weights. -Continue Oneill. -Hold Entresto in light of BRITTANY. -[facility] nephrology consulted. Patient resumed back on Bumex, chlorthalidone. Continue to monitor input and output closely Cardiology following, appreciate recommendations- -Oxygen to maintain saturations greater than 89%. Creatinine improving monitor ABG shows improvement in pCO2. Continue with the BiPAP at night, as needed during daytime with naps Monitor respiratory status closely Pneumonia-HCAP versus aspiration Complete antibiotic course. Treated with Zosyn Encourage incentive spirometry Supplemental oxygen as needed BRITTANY on CKD stage III improving Hyperkalemia, resolved Hypernatremia Sodium improving Monitor renal functions, nephrology following Ground-level fall Rib fractures Generalized weakness -CT of the chest shows acute fractures of the seventh and eighth right ribs. -PT/OT consult. -Pain control. -Incentive spirometer. Concern for pneumonia probably HCAP versus aspiration Completed antibiotic course hematuria -UA negative. -Likely due to traumatic Oneill insertion and/or trauma to Oneill in setting of supratherapeutic INR.Initial UA with no RBCs. Resolved, monitor Atrial fibrillation Supratherapeutic INR, resolved Nonsustained ventricular tachycardia -INR was 5.4 on presentation. -Continue beta-kim for rate control. -Pharmacy consulted for Coumadin dosing. Monitor INR -Monitor telemetry. Overnight episode of nonsustained ventricular tachycardia Continue current regimen, cardiology following. Appreciate cardiology Diabetes mellitus type 2 -Continue Jardiance. Continue sliding scale insulin and Lantus as indicated Coronary artery disease Hypertension Hyperlipidemia -Heart catheterization from 2020 revealed a 60% proximal LAD stenosis, 50% ostial RCA stenosis, bioprosthetic aortic valve without aortic regurgitation, and severe pulmonary hypertension. -Historically not on aspirin. Continue statin. -Monitor telemetry. COPD/asthma overlap syndrome Hypercarbic respiratory failure-rate COPD exacerbation Continue bronchodilators. prednisone 40 mg daily Already on antibiotics Oral thrush add nystatin CVA Carotid disease PAD -Continue aspirin and statin. Body mass index is 31.92 kg/m??. DVT Prophylaxis:on warfarin Code Status: DNR Not Medically Ready/Awaiting Clinical Improvement Anticipate discharge to help in 1 to 2 days time once respiratory shortness improved and remained stable SUBJECTIVE Patient seen and examined. Patient feels well. Using BiPAP overnight no complaints of chest pain, shortness of breath OBJECTIVE Blood pressure 132/87, pulse 76, temperature 97.8 ??F (36.6 ??C), temperature source Axillary, resp. rate 19, height 1.676 m (5' 6 ), weight 89.7 kg (197 lb 12 oz), SpO2 100%. Wt Readings from Last 3 Encounters: 09/11/24 89.7 kg (197 lb 12 oz) 08/24/24 106.6 kg (235 lb) 08/03/24 103 kg (227 lb) Review of Systems All other systems reviewed and are negative. Physical Exam Constitutional: Appearance: He is well-developed. HENT: Head: Normocephalic and atraumatic. Eyes: Pupils: Pupils are equal, round, and reactive to light. Cardiovascular: Rate and Rhythm: Normal rate and regular rhythm. Heart sounds: No murmur heard. No friction rub. Pulmonary: Breath sounds: No wheezing or rales. Chest: Chest wall: No tenderness. Abdominal: General: Bowel sounds are normal. Palpations: Abdomen is soft. Tenderness: There is no abdominal tenderness. There is no guarding or rebound. Musculoskeletal: General: Normal range of motion. Cervical back: Normal range of motion and neck supple. Skin: General: Skin is warm and dry. Findings: No rash. Neurological: Mental Status: He is alert and oriented to person, place, and time. LABS: Recent Labs 09/09/24 0610 09/10/24 0547 09/11/24 0358 WBC 12.18* 11.75* 13.97* HGB 11.7* 11.7* 10.4* HCT 40.1 39.8 34.9* MCV 98.3 97.8 94.8 PLT 102* 107* 103* RBC 4.08* 4.07* 3.68* Recent Labs 09/09/24 0610 09/10/24 0549 09/11/24 0358 ALT 31 -- 30 AST 25 -- 22 CO2 29.3 28.8 31.7 CL 115 114 104 GLU 277* 330* 224* K 3.6 3.6 3.5 NA 149* 147* 140 BUN 36* 37* 36* Intake/Output Summary (Last 24 hours) at 09/11/2024 1126 Last data filed at 09/11/2024 1033 Gross per 24 hour Intake 820 ml Output 900 ml Net -80 ml Microbiology Results (last 14 days) Procedure Component Value Units Date/Time MRSA PCR nares Screening [[id number]] Collected: 09/07/24 0848 Order Status: Sent Lab Status: No result Specimen: NASAL CULTURE, RESPIRATORY W/ GRAM STAIN [[id number]] Collected: 09/05/24 0740 Order Status: Completed Lab Status: Preliminary result Updated: 09/08/24 0640 Specimen: TRACHEAL ASPIRATE SPEC DESCRIPTION TRACHEAL ASPIRATE SPECIAL REQUESTS NO SPECIAL REQUEST GRAM STAIN RESULT <10 EPITHELIAL CELLS PER LPF GRAM STAIN RESULT >25 NEUTROPHILS PER LPF GRAM STAIN RESULT NO ORGANISMS SEEN CULTURE RESULT NO GROWTH 3 DAYS Gastric PH [[id number]] Order Status: No result Lab Status: No result Specimen: GASTRIC FLUID CULTURE, BACTERIA BLOOD [[id number]] Collected: 09/03/24 1223 Order Status: Completed Lab Status: Preliminary result Updated: 09/07/241926 Specimen: BLOOD SPEC DESCRIPTION BLOOD SPECIAL REQUESTS NO SPECIAL REQUEST CULTURE RESULT NO GROWTH 4 DAYS CULTURE, URINE [[id number]] Collected: 09/01/24 1110 Order Status: Completed Lab Status: Final result Updated: 09/03/24 0835 Specimen: URINE, CLEAN CATCH SPEC DESCRIPTION URINE CLEAN CATCH SPECIAL REQUESTS NO SPECIAL REQUEST CULTURE RESULT NO GROWTH (< OR = 1,000 CFU/ML) CULTURE, BACTERIA BLOOD X2 [[id number]] Collected: 08/31/24 1034 Order Status: Completed Lab Status: Final result Updated: 09/06/24 001 Specimen: BLOOD SPEC DESCRIPTION BLOOD SPECIAL REQUESTS NO SPECIAL REQUEST CULTURE RESULT NO GROWTH 5 DAYS Radiology MEDICATIONS Scheduled medications acetylcysteine 10 % 200 mg Nebulization 2 times daily allopurinol 200 mg Oral Daily aspirin 81 mg Oral Daily atorvastatin 80 mg Oral Nightly at bedtime clotrimazole-betamethasone Topical Q12H folic acid 1 mg Oral Daily insulin glargine 40 Units Subcutaneous Nightly at bedtime insulin lispro 0-6 Units Subcutaneous 4x Daily AC and at bedtime ipratropium-albuterol 3 mL Nebulization Q4H nystatin 5 mL Oral 4x Daily nystatin Topical BID predniSONE 40 mg Oral Daily pregabalin 150 mg Oral BID senna-docusate 1 tablet Oral BID sertraline 50 mg Oral Daily traZODone 300 mg Oral Nightly at bedtime warfarin (COUMADIN) pharmacy to dose Oral See Admin Instructions warfarin 2 mg Oral Once Infusion PRN acetaminophen, albuterol, glucose, dextrose 10 % bolus, [DISCONTINUED] fentaNYL AND [DISCONTINUED] fentaNYL AND fentaNYL, glucagon, HYDROcodone- acetaminophen, HYDROmorphone, hydrOXYzine, naLOXone, ondansetron, polyethylene glycol JUANPABLO HERMAN MD 11:26 AM 09/11/2024 ROOM SUPERVISOR ROOM SUPERVISOR * Iveth Tanner RN - 09/11/2024 10:30 AM CSTSummary: IDR 09/11/24 1030 Interdisciplinary Group Conference Team Members Present Case/Care management;Physician;Nursing Physician present for group conference Dr Herman Patient Current Status Paient current status Inpatient Barriers to Discharge Inpatient Review Barriers to Discharge Inpatient DC Destination - Limited/No Availability DC Destination - Limited/No Availability Follow up Pending Placement- Follow up- Zak Patient expects to be discharged to Patient expects to be discharged to: [facility]( [facility]) Followed up with [facility]- Awaiting Placement Anette called to confirm placement- states she will call back [phone]-Called Anette to confirm Acceptance/ Anette Confirmed Acceptance to [facility] 1314- Faxed [facility] per request to Anette 1352- Casandra notified of authorization needed- Family aware 1414- Anette ([facility] liaison) sent Complete PASSR as requested ROOM SUPERVISOR ROOM SUPERVISOR ROOM SUPERVISOR ROOM SUPERVISOR ROOM SUPERVISOR ROOM SUPERVISOR * Aaliyah BartonD, [facility] - 09/11/2024 9:24 AM CST Warfarin - Pharmacy Dosing Service Note Obie Sims is a 69-year-old male for which pharmacy has been consulted to dose warfarin for A.fib. Goal INR is 2-3. Warfarin Order Set Activated: Yes Warfarin Start Date: continuation from home Past Medical History: Diagnosis Date Abnormal ankle brachial index (STELLA) Acute on chronic heart failure, unspecified heart failure type ([facility]) Anxiety Aortic valve stenosis Arthritis Asthma, mild persistent ([facility]) 04/06/2021 Atrial fibrillation ([facility]) s/p PVI/[facility] 10/2015 Bilateral leg pain Carotid disease, bilateral ([facility]) CHF (congestive heart failure) ([facility]) Claudication ([facility]) COPD (chronic obstructive pulmonary disease) ([facility]) Coronary artery disease Diabetes mellitus, type II ([facility]) Edema 04/19/2018 2+ pitting History of blood transfusion Hyperlipidemia Hypertension LV dysfunction Non-pressure chronic ulcer of left calf limited to breakdown of skin ([facility]) 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 breakdown of skin ([facility]) Osteoarthritis PAD (peripheral artery disease) ([facility]) Pneumonia Restless leg syndrome S/P aortic valve replacement with bioprosthetic valve 2013 SOB (shortness of breath) Stroke ([facility]) Varicose veins of bilateral lower extremities with other complications Weight gain with edema Home warfarin dose: warfarin 2 mg po daily per med rec Bridging agent: none Vitamin K use: No; (if yes, indicate date, dose, and route) Diet: PO Recent Labs Lab 09/09/24 0610 09/10/24 0547 09/11/24 0358 HGB 11.7* 11.7* 10.4* HCT 40.1 39.8 34.9* PLT 102* 107* 103* AST 25 -- 22 ALT 31 -- 30 ALKP 116* -- 110 ALB 2.5* -- 2.4* Date INR Dose Received 08/28 5.4 per [facility] paperwork - 08/29 - - 08/30 2.7 2 mg at [facility] 08/31 1.8 - 09/01 1.6 2 mg 09/02 1.9 2 mg 09/03 2.6 hold 09/04 3.7 hold 09/05 2.2 2 mg 09/06 1.7 Missed dose as was npo 09/07 1.4 2 mg 09/08 1.8 1 mg 09/09 1.5 2 mg 09/10 1.3 2 mg 09/11 1.3 2 mg Drug interactions: Potential to increase INR: prednisone (09/09-) Potential to decrease INR: - Potential to increase the risk of bleeding: aspirin, sertraline Warfarin Sensitivity: high, based on the following risk factors: albumin < or = to 2.5, concomitant antiplatelet therapy, thrombocytopenia, age 66-79, 1 moderate drug interaction, and diagnosis ofheart failure. Hgb/Hct today are stable INR today subtherapeutic The plan is to give 2 mg tonight. Will recheck an INR in the morning to assist with subsequent dosing. Pharmacy will continue to monitor labs and notes daily, adjusting the dose as clinically appropriate. Thank you for the consult. Pharmacy to dose per Dr. Neftali Presley, PharmD, [facility] Phone number: [phone] 09/11/2024 9:24 AM ROOM SUPERVISOR * Brit Gonzáles MD - 09/11/2024 7:12 AM CST [facility] PROGRESS NOTE Name:Obie Sims Age:69-year-old Sex:male :1955 CHIEF COMPLAINT: CHF SUBJECTIVE: Sleep with BiPAP Denied CP Tele reviewed: 11 beat run of NSVT ASSESSMENT AND PLAN: # NSVT # Acute on chronic HFrEF # BRITTANY on CKD # Paroxysmal Afib w/ CVR # CAD, last MPI 02/2024 - no ischemia # Carotid dz/PAD # Prosthetic AV w/ moderate stenosis # PNA/?Aspiration Weight is down since admission by 45lbs per weight log Electrolytes are WNL, keep K close to 4.0 Consider adding low dose BB, metoprolol succinate 12.5mg QD if respiratory status allows C/t warfarin Patient Active Problem List Diagnosis S/P ablation of atrial fibrillation LV dysfunction Essential hypertension Mixed hyperlipidemia Diabetes mellitus, type II ([facility]) Coronary artery disease involving robinson coronary artery of robinson heart without angina pectoris COPD (chronic obstructive pulmonary disease) ([facility]) Carotid disease, bilateral ([facility]) Arthritis Aortic stenosis Chronic anticoagulation Chronic atrial fibrillation ([facility]) S/P aortic valve replacement with bioprosthetic valve Varicose veins of bilateral lower extremities with other complications Abnormal ankle brachial index (STELLA) Claudication ([facility]) Pain in both lower extremities Abnormal finding on lung imaging Abnormal finding on pulmonary function testing Shortness of breath TIA (transient ischemic attack) Obstructive sleep apnea (adult) (pediatric) Pulmonary hypertension ([facility]) Asymptomatic carotid artery stenosis, bilateral Mild persistent asthma without complication ([facility]) Leg edema Other closed fracture of distal end of right fibula with routine healing, subsequent encounter NSTEMI (non-ST elevated myocardial infarction) ([facility]) Elevated troponin Elevated brain natriuretic peptide (BNP) level Fall CHF (congestive heart failure) ([facility]) Rib fractures CHF exacerbation ([facility]) 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 breakdown of skin ([facility]) Non-pressure chronic ulcer of left calf limited to breakdown of skin ([facility]) Chronic venous insufficiency Review of Systems: Review of Systems Constitutional: Positive for weakness. Negative for recent unintentional weight gain, recent unintentional weight loss and new or significant fatigue. HENT: Negative for new or significant hearing loss. Eyes: Negative for blurred vision and double vision. Respiratory: Positive for cough and shortness of breath. Negative for snoring. Cardiovascular: See HPI. Positive for leg swelling. Gastrointestinal: Negative for blood in stool and melena. Genitourinary: Negative for dysuria. Musculoskeletal: Negative for myalgias and new or worsening joint stiffness/pain. Skin: Negative for rash. Neurological: Negative for tingling/numbness and focal weakness. Endo/Heme/Allergies: Negative for new or significant bruising/bleeding and polydipsia. Psychiatric/Behavioral: Negative for depression and new or significant memory loss. Medications: Scheduled Meds: acetylcysteine 10 % 200 mg Nebulization 2 times daily allopurinol 200 mg Oral Daily aspirin 81 mg Oral Daily atorvastatin 80 mg Oral Nightly at bedtime clotrimazole-betamethasone Topical Q12H folic acid 1 mg Oral Daily insulin glargine 40 Units Subcutaneous Nightly at bedtime insulin lispro 0-6 Units Subcutaneous 4x Daily AC and at bedtime ipratropium-albuterol 3 mL Nebulization Q4H nystatin 5 mL Oral 4x Daily nystatin Topical BID predniSONE 40 mg Oral Daily pregabalin 150 mg Oral BID senna-docusate 1 tablet Oral BID sertraline 50 mg Oral Daily traZODone 300 mg Oral Nightly at bedtime warfarin (COUMADIN) pharmacy to dose Oral See Admin Instructions Continuous Infusions: PRN Meds: acetaminophen, albuterol, glucose, dextrose 10 % bolus, [DISCONTINUED] fentaNYL AND [DISCONTINUED] fentaNYL AND fentaNYL, glucagon, HYDROcodone-acetaminophen, HYDROmorphone, hydrOXYzine, naLOXone, ondansetron, polyethylene glycol OBJECTIVE Weight change in the last 24 hours: Body mass index is 31.92 kg/m??. Wt Readings from Last 3 Encounters: 09/11/24 89.7 kg (197 lb 12 oz) 08/24/24 106.6 kg (235 lb) 08/03/24 103 kg (227 lb) Intake/Output past 24 Hours: Intake/Output Summary (Last 24 hours) at 09/12/2024 0510 Last data filed at 09/11/2024 1900 Gross per 24 hour Intake 1900 ml Output 1900 ml Net 0 ml Filed Vitals: 09/11/24 1937 09/11/24 2333 09/11/24 2344 09/12/24 0303 BP: 136/76 131/74 118/67 Pulse: 86 93 90 Resp: Temp: 96.3 ??F (35.7 ??C) TempSrc: Temporal SpO2: 98% 100% 98% 100% Weight: Height: Physical Exam Constitutional: General: He is not in acute distress. Appearance: Normal appearance. He is well-developed. HENT: Nose: No mucosal edema. Mouth/Throat: Pharynx: No oropharyngeal exudate. Neck: Vascular: No JVD. Cardiovascular: Rate and Rhythm: Normal rate and regular rhythm. Chest Wall: PMI is not displaced. Heart sounds: S1 normal and S2 normal. [...] Behavior normal. Thought Content: Thought content normal. LABORATORY/INVESTIGATIONS: Recent Labs 09/10/24 0547 09/11/248 09/12/24311 WBC 11.75* 13.97* 13.55* HGB 11.7* 10.4* 10.8* HCT 39.8 34.9* 35.6* MCV 97.8 94.8 94.9 PLT 107* 103* 129* Recent Labs 09/10/24 0549 09/11/24 0358 09/12/24311 NA 147* 140 137 K 3.6 3.5 4.3 CL 114 104 102 CO2 28.8 31.7 31.9 AGAP 4.2 4.3 3.1 BUN 37* 36* 39* CR 1.52* 1.52* 1.37* GLU 330* 224* 304* Recent Labs 09/12/24 031 INR 1.4* Results for orders placed or performed during the hospital encounter of 08/31/24 PRO-BRAIN NATRIURETIC PEPTIDE (PRO BNP) Collection Time: 09/03/24 8:29 PM Result Value Ref Range PRO-B TYPE NATRIURETIC PEPTIDE 28,171 (H) <125 PG/ML No results for input(s): TROP , TROPIWB in the last 72 hours. Recent Labs 09/11/24357 TP 7.2 ALB 2.4* ALT 30 IMAGING: Reviewed ECG/TELEMETRY Reviewed Signed BRIT GONZÁLES MD 09/11/2024 ROOM SUPERVISOR * Nikolas Jiménez MD - 09/11/2024 5:44 AM CST [facility] CROSS COVERAGE NOTE: DATE OF SERVICE: SEPTEMBER 11, 2024 Rapid response was called on the patient as the patient has one run of 11 beats of ventricular tachycardia during which he was symptomatic (Drowsiness with lightheadedness). His blood pressure was also low (SBP of 92) during the episode. Following that blood pressure improved. I ordered 5 mg of IV Lopressor. I reviewed the results of this morning's labs as they showed a normal serum magnesium level and a serum potassium level of 3.5. I ordered 40 meq of IV Potassium Chloride as the patient can not take oral potassium pills due to his dysphagia. Cardiology service has been on board for this patient. Will update cardiology service. AN ADDENDUM: At around 6:00 am, I updated (medical oncology physician) about the above. will see the patienttoday. The patient's code status is DNR. ROOM SUPERVISOR ROOM SUPERVISOR ROOM SUPERVISOR ROOM SUPERVISOR * Cielo Ness RN - 09/10/2024 2:27 PM CSTSummary: Pt was on BIPAP this am. On NC now. Doing well. VSS. Diuresing with Lasix and Diuril. Pushing fluids for high Na. Denies pain. UOP good. Problem: Discharge Planning Goal: Knowledge of discharge [...] of new skin breakdown Outcome: Progressing Problem: Reduced risk for falls/injury Goal: Reduced Risk for Falls/Injury Outcome: Progressing Goal: Reduced Risk of Confusion (Acute vs Chronic) Outcome: Progressing Goal: Reduced Risk of Symptomatic Depression Outcome: Progressing Goal: Reduced Risk of Altered Elimination Outcome: Progressing Goal: Reduced Risk of Dizziness/Vertigo/Balance Outcome: Progressing Goal: Reduced Risk of Polypharmacy Outcome: Progressing Problem: Infection - Risk of, Urinary Catheter-Associated Urinary Tract Infection Goal: Absence of Urinary Catheter Associated Urinary Tract (UTI) Infection Signs and Symptoms Outcome: Progressing Problem: Swallowing Goal: STG - Pt will participate in Modified Barium Swallow Study to assess physiology and anatomy of swallow and to determine appropriate diet and/or rehab exercises Outcome: Progressing Problem: Fluid Volume - Imbalanced Goal: Absence of imbalanced fluid volume signs and symptoms Outcome: Progressing Problem: Gas Exchange - Impaired Goal: Adequate oxygenation Outcome: Progressing Problem: Infection - Risk of, Septic Shock Goal: Absence of infection signs and symptoms Outcome: Progressing Problem: Infection - Risk of, Urinary Catheter-Associated Urinary Tract Infection Goal: Absence of infection signs and symptoms Outcome: Progressing Problem: Infection - Risk of, Ventilator-Associated Pneumonia Goal: Absence of infection signs and symptoms Outcome: Progressing Problem: Pain - Acute Goal: Achieve acceptable pain level Outcome: Progressing Goal: Reduced pain sensation Outcome: Progressing Problem: Skin Integrity - Risk of, Impaired Goal: Skin integrity intact Outcome: Progressing Problem: Tissue Perfusion - Cardiopulmonary, Altered Goal: Circulatory function within specified parameters Outcome: Progressing Problem: Venous Thromboembolism - Risk of Goal: Absence of deep venous thrombosis Outcome: Progressing Problem: Infection - Risk of, Central Venous Catheter-Associated Bloodstream Infection Goal: Absence of Central Venous Catheter Associated Bloodstream Infection Signs and Symptoms Outcome: Progressing Problem: Swallowing Goal: STG - Pt will tolerate the least restrictive diet without clinical signs symptoms of aspiration Outcome: Progressing ROOM SUPERVISOR * Juanpablo Herman MD - 09/10/2024 11:45 AM CST Images from the original note were not included. [facility] Hospitalist Progress note Chief Complain: Respiratory failure ASSESSMENT /PLAN: Obie Sims is an 69-year-old male with a past medical history of CKD stage III, atrial fibrillation on warfarin, heart failure with reduced ejection fraction, coronary artery disease, aortic stenosis status post bioprosthetic aortic valve replacement, pulmonary hypertension, COPD/asthma, obstructive sleep apnea, hyperlipidemia, diabetes mellitus type 2, CVA, carotid disease, anxiety/depression, hypertension, PAD, and RLS. He was transferred to [facility] with BRITTANY and hyperkalemia. During this hospitalization patient developed worsening hypoxic respiratory failure requiring intubation, transferred to ICU. In ICU he was treated with IV Lasix drip and also treated for possible aspiration pneumonia. Now extubated, transferred out of ICU ON 09/07/2023 Acute on chronic heart failure with reduced ejection fraction Anasarca Pulmonary hypertension Valvular heart disease Acute respiratory failure with hypoxia/hypercarbia -Echocardiogram from February 2024 reveals an ejection fraction of 40 to 45% with bioprosthetic aortic valve, no central or periprosthetic aortic regurgitation, mild mitral regurgitation, and mild tricuspid regurgitation. Worsening hypoxic respiratory failure requiring ICU admission, intubation Now improving. Hypernatremia requiring withholding diuretics continue diuretics as tolerated -Strict intake and output with daily weights. -Continue Oneill. -Hold Entresto in light of BRITTANY -[facility] nephrology consulted. Patient resumed back on Bumex, chlorthalidone. Continue to monitor input and output closely Cardiology following, appreciate recommendations- -Oxygen to maintain saturations greater than 89%. Creatinine improving monitor ABG shows improvement in pCO2. Continue with the BiPAP at night, as needed during daytime with naps Monitor respiratory status closely Pneumonia-HCAP versus aspiration Complete antibiotic course. Treated with Zosyn Encourage incentive spirometry Supplemental oxygen as needed BRITTANY on CKD stage III improving Hyperkalemia, resolved Hypernatremia Sodium improving Monitor renal functions, nephrology following Ground-level fall Rib fractures Generalized weakness -CT of the chest shows acute fractures of the seventh and eighth right ribs. -PT/OT consult. -Pain control. -Incentive spirometer. Concern for pneumonia probably HCAP versus aspiration Completed antibiotic course hematuria -UA negative. -Likely due to traumatic Oneill insertion and/or trauma to Oneill in setting of supratherapeutic INR.Initial UA with no RBCs. Resolved, monitor Atrial fibrillation Supratherapeutic INR, resolved -INR was 5.4 on presentation. -Continue beta-kim for rate control. -Pharmacy consulted for Coumadin dosing. Monitor INR -Monitor telemetry. Diabetes mellitus type 2 -Continue Jardiance. Continue sliding scale insulin and Lantus as indicated Coronary artery disease Hypertension Hyperlipidemia -Heart catheterization from 2020 revealed a 60% proximal LAD stenosis, 50% ostial RCA stenosis, bioprosthetic aortic valve without aortic regurgitation, and severe pulmonary hypertension. -Historically not on aspirin. Continue statin. -Monitor telemetry. COPD/asthma overlap syndrome Hypercarbic respiratory failure-rate COPD exacerbation Continue bronchodilators. Will add prednisone 40 mg daily Already on antibiotics Oral thrush add nystatin CVA Carotid disease PAD -Continue aspirin and statin. Body mass index is 31.85 kg/m??. DVT Prophylaxis:on warfarin Code Status: DNR Not Medically Ready/Awaiting Clinical Improvement Anticipate discharge to help in 1 to 2 days time once respiratory shortness improved and remained stable SUBJECTIVE Patient seen and examined. Patient sitting in chair feels well reports shortness of breath improving. Used BiPAP overnight OBJECTIVE Blood pressure (!) 148/80, pulse 97, temperature 97.9 ??F (36.6 ??C), temperature source Temporal, resp. rate 20, height 1.676 m (5' 6 ), weight 89.5 kg (197 lb 5 oz), SpO2 100%. Wt Readings from Last 3 Encounters: 09/08/24 89.5 kg (197 lb 5 oz) 08/24/24 106.6 kg (235 lb) 08/03/24 103 kg (227 lb) Review of Systems All other systems reviewed and are negative. Physical Exam Constitutional: Appearance: He is well-developed. HENT: Head: Normocephalic and atraumatic. Eyes: Pupils: Pupils are equal, round, and reactive to light. Cardiovascular: Rate and Rhythm: Normal rate and regular rhythm. Heart sounds: No murmur heard. No friction rub. Pulmonary: Breath sounds: No wheezing or rales. Chest: Chest wall: No tenderness. Abdominal: General: Bowel sounds are normal. Palpations: Abdomen is soft. Tenderness: There is no abdominal tenderness. There is no guarding or rebound. Musculoskeletal: General: Normal range of motion. Cervical back: Normal range of motion and neck supple. Skin: General: Skin is warm and dry. Findings: No rash. Neurological: Mental Status: He is alert and oriented to person, place, and time. LABS: Recent Labs 09/08/2445209/09/2460909/10/24 0547 WBC 15.12* 12.18* 11.75* HGB 11.1* 11.7* 11.7* HCT 37.6 40.1 39.8 MCV 96.2 98.3 97.8 PLT 107* 102* 107* RBC 3.91* 4.08* 4.07* Recent Labs 09/08/2445209/09/2460909/10/24 0549 ALT 27 31 -- AST 22 25 -- CO2 32.3* 29.3 28.8 CL 117* 115 114 GLU 136* 277* 330* K 3.4* 3.6 3.6 NA 151* 149* 147* BUN 41* 36* 37* Intake/Output Summary (Last 24 hours) at 09/10/2024 1145 Last data filed at 09/10/2024 1100 Gross per 24 hour Intake 1964 ml Output 2950 ml Net -986 ml Microbiology Results (last 14 days) Procedure Component Value Units Date/Time MRSA PCR nares Screening [[id number]] Collected: 09/07/24 0848 Order Status: Sent Lab Status: No result Specimen: NASAL CULTURE, RESPIRATORY W/ GRAM STAIN [[id number]] Collected: 09/05/24739 Order Status: Completed Lab Status: Preliminary result Updated: 09/08/24639 Specimen: TRACHEAL ASPIRATE SPEC DESCRIPTION TRACHEAL ASPIRATE SPECIAL REQUESTS NO SPECIAL REQUEST GRAM STAIN RESULT <10 EPITHELIAL CELLS PER LPF GRAM STAIN RESULT >25 NEUTROPHILS PER LPF GRAM STAIN RESULT NO ORGANISMS SEEN CULTURE RESULT NO GROWTH 3 DAYS Gastric PH [[id number]] Order Status: No result Lab Status: No result Specimen: GASTRIC FLUID CULTURE, BACTERIA BLOOD [[id number]] Collected: 09/03/24 1223 Order Status: Completed Lab Status: Preliminary result Updated: 09/07/24 192 Specimen: BLOOD SPEC DESCRIPTION BLOOD SPECIAL REQUESTS NO SPECIAL REQUEST CULTURE RESULT NO GROWTH 4 DAYS CULTURE, URINE [[id number]] Collected: 09/01/24 1110 Order Status: Completed Lab Status: Final result Updated: 09/03/24 0835 Specimen: URINE, CLEAN CATCH SPEC DESCRIPTION URINE CLEAN CATCH SPECIAL REQUESTS NO SPECIAL REQUEST CULTURE RESULT NO GROWTH (< OR = 1,000 CFU/ML) CULTURE, BACTERIA BLOOD X2 [[id number]] Collected: 08/31/24 1034 Order Status: Completed Lab Status: Final result Updated: 09/06/24 0011 Specimen: BLOOD SPEC DESCRIPTION BLOOD SPECIAL REQUESTS NO SPECIAL REQUEST CULTURE RESULT NO GROWTH 5 DAYS Radiology MEDICATIONS Scheduled medications acetylcysteine 10 % 200 mg Nebulization 2 times daily allopurinol 200 mg Oral Daily aspirin 81 mg Oral Daily atorvastatin 80 mg Oral Nightly at bedtime bumetanide 2 mg Intravenous BID chlorothiazide 500 mg Intravenous BID clotrimazole-betamethasone Topical Q12H folic acid 1 mg Oral Daily insulin glargine 40 Units Subcutaneous Nightly at bedtime insulin lispro 0-6 Units Subcutaneous 4x Daily AC and at bedtime ipratropium-albuterol 3 mL Nebulization Q4H nystatin 5 mL Oral 4x Daily nystatin Topical BID piperacillin-tazobactam 3.375 g Intravenous Q8H predniSONE 40 mg Oral Daily pregabalin 150 mg Oral BID senna-docusate 1 tablet Oral BID sertraline 50 mg Oral Daily traZODone 300 mg Oral Nightly at bedtime warfarin (COUMADIN) pharmacy to dose Oral See Admin Instructions warfarin 2 mg Oral Once Infusion PRN acetaminophen, albuterol, glucose, dextrose 10 % bolus, [DISCONTINUED] fentaNYL AND [DISCONTINUED] fentaNYL AND fentaNYL, glucagon, HYDROcodone- acetaminophen, HYDROmorphone, hydrOXYzine, naLOXone, ondansetron, polyethylene glycol JUANPABLO HERMAN MD 11:45 AM 09/10/2024 ROOM SUPERVISOR ROOM SUPERVISOR ROOM SUPERVISOR * Irene Javier, PharmD - 09/10/2024 11:38 AM CST Warfarin - Pharmacy Dosing Service Note Obie Sims is a 69-year-old male for which pharmacy has been consulted to dose warfarin for A.fib. Goal INR is 2-3. Warfarin Order Set Activated: Yes Warfarin Start Date: continuation from home Past Medical History: Diagnosis Date Abnormal ankle brachial index ([facility]) Acute on chronic heart failure, unspecified heart failure type ([facility]) Anxiety Aortic valve stenosis Arthritis Asthma, mild persistent ([facility]) 04/06/2021 Atrial fibrillation ([facility]) s/p PVI/[facility] 10/2015 Bilateral leg pain Carotid disease, bilateral ([facility]) CHF (congestive heart failure) ([facility]) Claudication ([facility]) COPD (chronic obstructive pulmonary disease) ([facility]) Coronary artery disease Diabetes mellitus, type II ([facility]) Edema 04/19/2018 2+ pitting History of blood transfusion Hyperlipidemia Hypertension LV dysfunction Non-pressure chronic ulcer of left calf limited to breakdown of skin ([facility]) 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 breakdown of skin ([facility]) Osteoarthritis PAD (peripheral artery disease) ([facility]) Pneumonia Restless leg syndrome S/P aortic valve replacement with bioprosthetic valve 2013 SOB (shortness of breath) Stroke ([facility]) Varicose veins of bilateral lower extremities with other complications Weight gain with edema Home warfarin dose: warfarin 2 mg po daily per med rec Bridging agent: none Vitamin K use: No; (if yes, indicate date, dose, and route) Diet: PO Recent Labs Lab 09/08/24 0453 09/09/24 0610 09/10/24 0547 HGB 11.1* 11.7* 11.7* HCT 37.6 40.1 39.8 PLT 107* 102* 107* AST 22 25 -- ALT 27 31 -- ALKP 104 116* -- ALB 2.3* 2.5* -- Date INR Dose Received 08/28 5.4 per [facility] paperwork - 08/29 - - 08/30 2.7 2 mg at OL 08/31 1.8 - 09/01 1.6 2 mg 09/02 1.9 2 mg 09/03 2.6 hold 09/04 3.7 hold 09/05 2.2 2 mg 09/06 1.7 Missed dose as was npo 09/07 1.4 2 mg 09/08 1.8 1 mg 09/09 1.5 2 mg 09/10 1.3 2 mg Drug interactions: Potential to increase INR: zosyn - ends 09/10, prednisone (09/09-) Potential to decrease INR: - Potential to increase the risk of bleeding: aspirin, sertraline Warfarin Sensitivity: high, based on the following risk factors: albumin < or = to 2.5, concomitant antiplatelet therapy, thrombocytopenia, age 66-79, 1 moderate drug interaction, and diagnosis ofheart failure. Hgb/Hct today are stable INR today subtherapeutic The plan is to give 2 mg tonight. Will recheck an INR in the morning to assist with subsequent dosing. Pharmacy will continue to monitor labs and notes daily, adjusting the dose as clinically appropriate. Thank you for the consult. Pharmacy to dose per Dr. Neftali JAVIER, PharmD Phone number: [phone] 09/10/2024 11:38 AM ROOM SUPERVISOR * Ludy Morrell MD - 09/10/2024 8:40 AM CST [facility] Nephrology Progress Note Obie Sims is a 69-year-old male patient. HPI 69-year-old gentleman with past medical history significant for CKD stage III, atrial fibrillation,heart failure with reduced ejection fraction, coronary disease, aortic stenosis status post bioprosthetic aortic valve placement, pulmonary hypertension, COPD, obstructive sleep apnea, dyslipidemia, diabetes mellitus type 2, stroke, anxiety, hypertension, restless leg syndrome who presented due to BRITTANY and hyperkalemia. Patient had a fall on 08/18/2024, initially declined treatment but ultimately presented to outside ED 2 days ago with rib pain and knee pain. He also reported shortness of breath and lower extremity swelling. His creatinine was found to be 2 with potassium 5.9. Patient transferred to [facility] for BRITTANY and hyperkalemia management. Nephrology consulted to manage kidney disease Subjective 1. Blood pressure stable 2. Transferred out of the ICU 3. good urine output, creatinine improved 4. Placed back on BiPAP due to hypercapnic respiratory failure Review Of Systems Patient reports no chest pain, no urinary complaints, no nausea, no vomiting. 10 point review system otherwise negative Current Facility-Administered Medications Medication Dose Route Frequency Provider Last Rate Last Admin acetaminophen (TYLENOL) tablet 650 mg 650 mg Oral Q4H PRN Keyona Miller MD acetylcysteine 10 % (MUCOMYST) inhalation solution 200 mg 200 mg Nebulization 2 times daily Juanpablo Herman MD 200 mg at 09/09/24 194 albuterol (PROVENTIL) (2.5 MG/3ML) 0.083% nebulizer solution 2.5 mg 2.5 mg Nebulization Q2H PRN Keyona Miller MD 2.5 mg at 09/04/24 0724 allopurinol (ZYLOPRIM) tablet 200 mg 200 mg Oral Daily Keyona Miller MD 200 mg at 09/09/24 0928 aspirin chewable tablet 81 mg 81 mg Oral Daily Keyona Miller MD 81 mg at 09/09/24 0928 atorvastatin (LIPITOR) tablet 80 mg 80 mg Oral Nightly at bedtime Keyona Miller MD 80mg at 09/09/24 194 clotrimazole-betamethasone (LOTRISONE) cream Topical Q12H Nikolas Jiménez MD Given at 09/09/24 194 dextrose (GLUTOSE) 40 % oral gel 37.5-75 g 15-30 g of dextrose Oral PRN Keyona Miller MD dextrose 10 % bolus infusion 125-250 mL 125-250 mL Intravenous PRN Keyona Miller MD Stopped at 09/06/24 1640 fentaNYL (SUBLIMAZE) injection 25 mcg 25 mcg Intravenous Q10 Min PRN Keyona Miller MD folic acid (FOLVITE) tablet 1 mg 1 mg Oral Daily Keyona Miller MD 1 mg at 09/09/24 0928 glucagon injection 1 mg 1 mg Intramuscular Once PRN Keyona Miller MD HYDROcodone-acetaminophen (NORCO) 5-325 MG tablet 1 tablet 1 tablet Oral Q4H PRN Keyona Miller MD HYDROmorphone (DILAUDID) injection 0.2 mg 0.2 mg Intravenous Q2H PRN Nikolas Jiménez MD 0.2 mg at 09/04/24 1620 hydrOXYzine (ATARAX) tablet 50 mg 50 mg Per NG Tube TID PRN Keyona Miller MD insulin glargine (LANTUS) injection 40 Units 40 Units Subcutaneous Nightly at bedtime Keyona Abarca MD 40 Units at 09/09/24 194 insulin lispro (HUMALOG/ADMELOG) injection 0-6 Units 0-6 Units Subcutaneous 4x Daily AC and at bedtime Juanpablo Herman MD 4 Units at 09/10/24 0631 ipratropium-albuterol (DUONEB) 0.5-2.5 (3) MG/3ML nebulizer solution 3 mL 3 mL Nebulization Q4H Juanpablo Herman MD 3 mL at 09/10/24 0413 naLOXone (NARCAN) injection 0.4 mg 0.4 mg Intravenous PRN Nikolas Jiménez MD nystatin (MYCOSTATIN) 077707 UNIT/ML suspension 5 mL 5 mL Oral 4x Daily Nikolas Jiménez MD 5 mL at 09/09/241947 nystatin (MYCOSTATIN) powder Topical BID Nikolas Jiménez MD Given at 09/09/24 194 ondansetron (ZOFRAN) injection 4 mg 4 mg Intravenous Q8H PRN Nikolas Jiménez MD piperacillin-tazobactam (ZOSYN) 3.375 g in sodium chloride 0.9 % 50 mL IVPB 3.375 g Intravenous [id number] Jiménez MD Stopped at 09/10/24 0932 polyethylene glycol (GLYCOLAX) packet 17 g 17 g Oral Daily PRN Keyona Miller MD predniSONE (DELTASONE) tablet 40 mg 40 mg Oral Daily Juanpablo Herman MD 40 mg at 09/09/24 1320 pregabalin (LYRICA) capsule 150 mg 150 mg Oral BID Keyona Miller MD 150 mg at 09/09/241947 senna-docusate (SENOKOT-S) 8.6-50 MG tablet 1 tablet 1 tablet Oral BID Keyona Miller MD 1 tablet at 09/09/241947 sertraline (ZOLOFT) tablet 50 mg 50 mg Oral Daily Keyona Miller MD 50 mg at 09/09/24 0928 traZODone (DESYREL) tablet 300 mg 300 mg Oral Nightly at bedtime Juanpablo Herman MD 300 mg at 09/09/241946 warfarin (COUMADIN) pharmacy to dose placeholder Oral See Admin Instructions Nikolas Jiménez MD Review of patient's allergies indicates: No Known Allergies Principal Problem: CHF exacerbation ([facility]) SNOMED CT(R): ACUTE EXACERBATION OF CHRONIC CONGESTIVE HEART FAILURE Filed Vitals: 09/10/24 0001 09/10/24 0413 09/10/24 0443 09/10/24 0805 BP: (!) 151/96 (!) 148/80 Pulse: (!) 45 97 Resp: 20 Temp: 97.9 ??F (36.6 ??C) 97.9 ??F (36.6 ??C) TempSrc: Oral Temporal SpO2: 100% 100% 99% 100% Weight: Height: Last 3 Recorded Weights 09/03/24 0423 09/04/24 1100 09/08/24 0500 Weight: 95.3 kg (210 lb 1.6 oz) 88.8 kg (195 lb 12.3 oz) 89.5 kg (197 lb 5 oz) Intake/Output Summary (Last 24 hours) at 09/10/2024 0840 Last data filed at 09/10/2024 0443 Gross per 24 hour Intake 2204 ml Output 2100 ml Net 104 ml Physical Exam: -GENERAL: Intubated and sedated -EYES: Extraocular movements intact. -ENT: Neck supple, Septum is midline. DRY oral mucosa. -LUNG: Mildly coarse bilaterally with expiratory wheezing on the right. -CVS: Regular rate, irregularly irregular rhythm, S1 and S2 normal, No murmurs. -ABDOMEN: Soft, nondistended, Nontender, Bowel sounds observed. -EXT: No bilateral lower Ext edema. Gauze wraps around bilateral lower legs. -NEURO: Alert, awake, oriented x3, No gross neuro deficit -SKIN: Skin color, texture, turgor normal. No rashes or lesions LABs Recent Labs Lab 09/04/24 0415 09/05/24 0400 09/05/24 1110 09/05/24 2000 09/06/24 0430 09/06/24 1249 09/06/24 2030 09/07/24 0342 09/08/24 0453 09/09/24 0610 09/10/24 0549 NA 148* 152* < > 154* 153* 158* 157* 157* 151* 149* -- K 3.5 3.2* < > 4.2 3.8 3.5 4.1 3.8 3.4* 3.6 -- CL 111 114 < > 121* 120* 124* 125* 124* 117* 115 -- CO2 31.3 30.7 < > 30.9 31.6 32.0 30.4 30.4 32.3* 29.3 -- AGAP 5.7 7.3 < > 2.1 1.4* 2.0 1.6* 2.6 1.7* 4.7 -- BUN 64* 64* < > 70* 68* 63* 59* 52* 41* 36* -- CR 2.29* 2.44* < > 2.52* 2.16* 1.97* 1.83* 1.78* 1.67* 1.66* -- GLU 320* 191* < > 230* 189* 70* 85 146* 136* 277* -- CA 9.2 9.2 < > 9.2 9.8 8.7 8.8 8.8 9.2 9.2 -- MAGNESIUM 2.4 2.6 -- -- 2.8* -- -- 2.7* 2.8* 3.1* 2.9* PHOS 4.1 2.8 -- -- 3.1 -- -- 3.4 3.1 3.0 2.3* < > = values in this interval not displayed. Recent Labs Lab 09/03/24202809/04/24 0415 09/05/24 0400 09/06/24 0430 09/07/24 0342 09/08/24 0453 09/09/24 0610 WBC 17.46* 14.31* 19.33* 13.94* 13.95* 15.12* 12.18* RBC 4.69 4.31* 4.30* 4.09* 4.07* 3.91* 4.08* HGB 13.7 12.1 12.3 11.7* 11.5* 11.1* 11.7* HCT 44.3 40.6 39.5 38.6 39.2 37.6 40.1 MCV 94.5 94.2 91.9 94.4 96.3 96.2 98.3 MCH 29.2 28.1 28.6 28.6 28.3 28.4 28.7 MCHC 30.9* 29.8* 31.1* 30.3* 29.3* 29.5* 29.2* PLT 131* 138* 137* 112* 109* 107* 102* RDW 16.2* 15.9* 15.9* 16.1* 16.0* 15.9* 15.8* MPV 13.2* 11.7* 12.9* 12.6* 12.5* 12.5* 13.2* Assessment/Plan: 69-year-old gentleman with past medical history significant for CKD stage III, atrial fibrillation,heart failure with reduced ejection fraction, coronary disease, aortic stenosis status post bioprosthetic aortic valve placement, pulmonary hypertension, COPD, obstructive sleep apnea, dyslipidemia, diabetes mellitus type 2, stroke, anxiety, hypertension, restless leg syndrome who presented due to BRITTANY and hyperkalemia. Patient had a fall on 08/18/2024, initially declined treatment but ultimately presented to outside ED 2 days ago with rib pain and knee pain. He also reported shortness of breath and lower extremity swelling. His creatinine was found to be 2 with potassium 5.9. Patient transferred to [facility] for BRITTANY and hyperkalemia management. BRITTANY on CKD stage III -Baseline creatinine 1.3-1.5. Patient also follows with Dr. Beltran -At outside hospital creatinine was 2.0, patient received fluids and creatinine increased to 2.8. This is likely related to hemodynamics/fluid overload. -Renal ultrasound showed suboptimal visualization of right kidney. No right sided hydronephrosis. No increase echogenicity. Right kidney 11.6 cm. Left kidney was not seen. -CPK normal, urinalysis 3+ blood and a mild protein WBCs 27 RBCs greater than 182, urine sodium of 88. BRITTANY serology negative -Initial chest x-ray showed pulmonary vascular congestion and interstitial edema -s/p aggressive IV diuresis. Net -16.5 L since admission -Most recent creatinine 1.6 -Chest x-ray suggestive of pulmonary edema so we will resume diuretics (Bumex 2 mg twice daily and chlorothiazide 500 mg twice daily today) -Strict I's/O, avoid nephrotoxins 2. HTN. -Blood pressure stable -off Levophed -Continue to avoid STEVIE/ARB 3. Anemia of chronic disease. Hemoglobin stable 4. Electrolytes. -Hypernatremia. Give thiazide diuretics 5. Renal osteodystrophy. Calcium and phosphorus levels are okay 6. Disposition stable Thank you for allowing me to participate in the care of this patient. We will continue to follow this patient with you. Please contact us with further questions. LUDY MORRELL MD 09/10/2024 ROOM SUPERVISOR ROOM SUPERVISOR * Juanpablo Herman MD - 09/09/2024 11:29 AM CST Images from the original note were not included. [employer] Hospitalist Progress note Chief Complain: Respiratory failure ASSESSMENT /PLAN: Obie Sims is an 69-year-old male with a past medical history of CKD stage III, atrial fibrillation on warfarin, heart failure with reduced ejection fraction, coronary artery disease, aortic stenosis status post bioprosthetic aortic valve replacement, pulmonary hypertension, COPD/asthma, obstructive sleep apnea, hyperlipidemia, diabetes mellitus type 2, CVA, carotid disease, anxiety/depression, hypertension, PAD, and RLS. He was transferred to [facility] with BRITTANY and hyperkalemia. During this hospitalization patient developed worsening hypoxic respiratory failure requiring intubation, transferred to ICU. In ICU he was treated with IV Lasix drip and also treated for possible aspiration pneumonia. Now extubated, transferred out of ICU ON 09/07/2023 Acute on chronic heart failure with reduced ejection fraction Anasarca Pulmonary hypertension Valvular heart disease Acute respiratory failure with hypoxia/hypercarbia -Echocardiogram from February 2024 reveals an ejection fraction of 40 to 45% with bioprosthetic aortic valve, no central or periprosthetic aortic regurgitation, mild mitral regurgitation, and mild tricuspid regurgitation. Worsening hypoxic respiratory failure requiring ICU admission, intubation Now improving. Hyponatremia requiring withholding diuretics continue diuretics as tolerated -Strict intake and output with daily weights. -Continue Oneill. -Hold Entresto in light of BRITTANY. Continue beta-kim -[facility] nephrology consulted Cardiology following, appreciate recommendations- -Oxygen to maintain saturations greater than 89%. Creatinine improving monitor VBG shows a pH of 7.27, pCO2 of 70.3. Patient placed on a BiPAP. Tolerating well. Discussed with nursing staff, patient recommending continuous BiPAP throughout the day, at night. Recheck VBG 2 to 4 hours time Monitor respiratory status closely Pneumonia-HCAP versus aspiration Continue broad-spectrum antibiotics Encourage incentive spirometry Supplemental oxygen as needed BRITTANY on CKD stage III improving Hyperkalemia, resolved Hypernatremia Sodium improving Encourage free water intake Monitor renal functions, nephrology following Ground-level fall Rib fractures Generalized weakness -CT of the chest shows acute fractures of the seventh and eighth right ribs. -PT/OT consult. -Pain control. -Incentive spirometer. Concern for pneumonia probably HCAP versus aspiration vancomycin and Zosyn Continue Zosyn, discontinue vancomycin hematuria -UA negative. -Likely due to traumatic Oneill insertion and/or trauma to Oneill in setting of supratherapeutic INR.Initial UA with no RBCs. Resolved, monitor Atrial fibrillation Supratherapeutic INR, resolved -INR was 5.4 on presentation. -Continue beta-kim for rate control. -Pharmacy consulted for Coumadin dosing. Monitor INR -Monitor telemetry. Diabetes mellitus type 2 -Continue Jardiance. Continue sliding scale insulin and Lantus as indicated Coronary artery disease Hypertension Hyperlipidemia -Heart catheterization from 2020 revealed a 60% proximal LAD stenosis, 50% ostial RCA stenosis, bioprosthetic aortic valve without aortic regurgitation, and severe pulmonary hypertension. -Historically not on aspirin. Continue beta-kim and statin. -Monitor telemetry. COPD/asthma overlap syndrome Hypercarbic respiratory failure-rate COPD exacerbation Continue bronchodilators. Will add prednisone 40 mg daily Already on antibiotics Oral thrush add nystatin CVA Carotid disease PAD -Continue aspirin and statin. Body mass index is 31.85 kg/m??. DVT Prophylaxis:on warfarin Code Status: DNR I provided 35 minutes of critical care time excluding procedures of this critically ill patient in which there is acute impairment of one or more vital organ systems, such that there is probability of imminent or life threatening deterioration of the patients condition. It involved high complexity decision making to treat single or multiple vital organ system failure and /or to prevent further life threatening deterioration of pts condition Not Medically Ready/Awaiting Clinical Improvement SUBJECTIVE Patient seen and examined. Patient noted to have worsening respiratory failure with pCO2 retention. Patient placed on BiPAP. When examined he is tolerating. OBJECTIVE Blood pressure (!) 155/87, pulse 89, temperature 98.4 ??F (36.9 ??C), temperature source Temporal, resp. rate 22, height 1.676 m (5' 6 ), weight 89.5 kg (197 lb 5 oz), SpO2 100%. Wt Readings from Last 3 Encounters: 09/08/24 89.5 kg (197 lb 5 oz) 08/24/24 106.6 kg (235 lb) 08/03/24 103 kg (227 lb) Review of Systems All other systems reviewed and are negative. Physical Exam Constitutional: Appearance: He is well-developed. He is ill-appearing. HENT: Head: Normocephalic and atraumatic. Eyes: Pupils: Pupils are equal, round, and reactive to light. Cardiovascular: Rate and Rhythm: Normal rate and regular rhythm. Heart sounds: No murmur heard. No friction rub. Pulmonary: Effort: Respiratory distress present. Breath sounds: No wheezing or rales. Chest: Chest wall: No tenderness. Abdominal: General: Bowel sounds are normal. Palpations: Abdomen is soft. Tenderness: There is no abdominal tenderness. There is no guarding or rebound. Musculoskeletal: General: Normal range of motion. Cervical back: Normal range of motion and neck supple. Skin: General: Skin is warm and dry. Findings: No rash. Neurological: Mental Status: He is alert and oriented to person, place, and time. LABS: Recent Labs 09/07/2434109/08/2445209/09/24 06 WBC 13.95* 15.12* 12.18* HGB 11.5* 11.1* 11.7* HCT 39.2 37.6 40.1 MCV 96.3 96.2 98.3 PLT 109* 107* 102* RBC 4.07* 3.91* 4.08* Recent Labs 09/07/2434109/08/2445209/09/24 06 ALT 27 27 31 AST 29 22 25 CO2 30.4 32.3* 29.3 CL 124* 117* 115 GLU 146* 136* 277* K 3.8 3.4* 3.6 NA 157* 151* 149* BUN 52* 41* 36* Intake/Output Summary (Last 24 hours) at 09/09/2024 1129 Last data filed at 09/09/2024 0910 Gross per 24 hour Intake 1258 ml Output 1325 ml Net -67 ml Microbiology Results (last 14 days) Procedure Component Value Units Date/Time MRSA PCR nares Screening [[id number]] Collected: 09/07/24847 Order Status: Sent Lab Status: No result Specimen: NASAL CULTURE, RESPIRATORY W/ GRAM STAIN [[id number]] Collected: 09/05/24739 Order Status: Completed Lab Status: Preliminary result Updated: 09/08/24639 Specimen: TRACHEAL ASPIRATE SPEC DESCRIPTION TRACHEAL ASPIRATE SPECIAL REQUESTS NO SPECIAL REQUEST GRAM STAIN RESULT <10 EPITHELIAL CELLS PER LPF GRAM STAIN RESULT >25 NEUTROPHILS PER LPF GRAM STAIN RESULT NO ORGANISMS SEEN CULTURE RESULT NO GROWTH 3 DAYS Gastric PH [[id number]] Order Status: No result Lab Status: No result Specimen: GASTRIC FLUID CULTURE, BACTERIA BLOOD [[id number]] Collected: 09/03/24 1223 Order Status: Completed Lab Status: Preliminary result Updated: 09/07/241926 Specimen: BLOOD SPEC DESCRIPTION BLOOD SPECIAL REQUESTS NO SPECIAL REQUEST CULTURE RESULT NO GROWTH 4 DAYS CULTURE, URINE [[id number]] Collected: 09/01/24 1110 Order Status: Completed Lab Status: Final result Updated: 09/03/24 0835 Specimen: URINE, CLEAN CATCH SPEC DESCRIPTION URINE CLEAN CATCH SPECIAL REQUESTS NO SPECIAL REQUEST CULTURE RESULT NO GROWTH (< OR = 1,000 CFU/ML) CULTURE, BACTERIA BLOOD X2 [[id number]] Collected: 08/31/24 1034 Order Status: Completed Lab Status: Final result Updated: 09/06/24 0011 Specimen: BLOOD SPEC DESCRIPTION BLOOD SPECIAL REQUESTS NO SPECIAL REQUEST CULTURE RESULT NO GROWTH 5 DAYS Radiology MEDICATIONS Scheduled medications acetylcysteine 10 % 200 mg Nebulization 2 times daily allopurinol 200 mg Oral Daily aspirin 81 mg Oral Daily atorvastatin 80 mg Oral Nightly at bedtime clotrimazole-betamethasone Topical Q12H folic acid 1 mg Oral Daily insulin glargine 40 Units Subcutaneous Nightly at bedtime insulin lispro 0-6 Units Subcutaneous 4x Daily AC and at bedtime ipratropium-albuterol 3 mL Nebulization Q4H nystatin 5 mL Oral 4x Daily nystatin Topical BID piperacillin-tazobactam 3.375 g Intravenous Q8H pregabalin 150 mg Oral BID senna-docusate 1 tablet Oral BID sertraline 50 mg Oral Daily traZODone 300 mg Oral Nightly at bedtime vancomycin 750 mg Intravenous Q24H warfarin (COUMADIN) pharmacy to dose Oral See Admin Instructions warfarin 2 mg Oral Once Infusion PRN acetaminophen, albuterol, glucose, dextrose 10 % bolus, [DISCONTINUED] fentaNYL AND [DISCONTINUED] fentaNYL AND fentaNYL, glucagon, HYDROcodone- acetaminophen, HYDROmorphone, hydrOXYzine, naLOXone, ondansetron, polyethylene glycol JUANPABLO HERMAN MD 11:29 AM 09/09/2024 ROOM SUPERVISOR * Irene Javier PharmRandy - 09/09/2024 10:24 AM CST Pharmacy Clinical Services: Sign off note Pharmacy has been consulted to dose vancomycin. Pharmacy will now sign off dosing as the drug has been discontinued after today's dose. Thank you for allowing us the opportunity to participate in the care of Obie Sims. Please let pharmacy know if we can be of further assistance. IRENE JAVIER PharmD Phone number: [phone] 09/09/2024 10:24 AM ROOM SUPERVISOR ROOM SUPERVISOR * Irene Javier PharmD - 09/09/2024 9:56 AM CST Warfarin - Pharmacy Dosing Service Note Obie Sims is a 69-year-old male for which pharmacy has been consulted to dose warfarin for A.fib. Goal INR is 2-3. Warfarin Order Set Activated: Yes Warfarin Start Date: continuation from home Past Medical History: Diagnosis Date Abnormal ankle brachial index (STELLA) Acute on chronic heart failure, unspecified heart failure type ([facility]) Anxiety Aortic valve stenosis Arthritis Asthma, mild persistent ([facility]) 04/06/2021 Atrial fibrillation ([facility]) s/p PVI/[facility] 10/2015 Bilateral leg pain Carotid disease, bilateral ([facility]) CHF (congestive heart failure) ([facility]) Claudication ([facility]) COPD (chronic obstructive pulmonary disease) ([facility]) Coronary artery disease Diabetes mellitus, type II ([facility]) Edema 04/19/2018 2+ pitting History of blood transfusion Hyperlipidemia Hypertension LV dysfunction Non-pressure chronic ulcer of left calf limited to breakdown of skin ([facility]) 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 breakdown of skin ([facility]) Osteoarthritis PAD (peripheral artery disease) ([facility]) Pneumonia Restless leg syndrome S/P aortic valve replacement with bioprosthetic valve 2013 SOB (shortness of breath) Stroke ([facility]) Varicose veins of bilateral lower extremities with other complications Weight gain with edema Home warfarin dose: warfarin 2 mg po daily per med rec Bridging agent: none Vitamin K use: No; (if yes, indicate date, dose, and route) Diet: PO Recent Labs Lab 09/07/24 0342 09/08/24 0453 09/09/24 0610 HGB 11.5* 11.1* 11.7* HCT 39.2 37.6 40.1 PLT 109* 107* 102* AST 29 22 25 ALT 27 27 31 ALKP 110 104 116* ALB 2.4* 2.3* 2.5* Date INR Dose Received 08/28 5.4 per [facility] paperwork - 08/29 - - 08/30 2.7 2 mg at [facility] 08/31 1.8 - 09/01 1.6 2 mg 09/02 1.9 2 mg 09/03 2.6 hold 09/04 3.7 hold 09/05 2.2 2 mg 09/06 1.7 Missed dose as was npo 09/07 1.4 2 mg 09/08 1.8 1 mg 09/09 1.5 2 mg Drug interactions: Potential to increase INR: zosyn Potential to decrease INR: - Potential to increase the risk of bleeding: aspirin, sertraline Warfarin Sensitivity: high, based on the following risk factors: albumin < or = to 2.5, thrombocytopenia, age 66-79, 1 moderate drug interaction, and diagnosis of heart failure. Hgb/Hct today are stable INR today subtherapeutic The plan is to give 2 mg tonight. Will recheck an INR in the morning to assist with subsequent dosing. Pharmacy will continue to monitor labs and notes daily, adjusting the dose as clinically appropriate. Thank you for the consult. Pharmacy to dose per Dr. Neftali JAVIER, PharmD Phone number: [phone] 09/09/2024 9:56 AM ROOM SUPERVISOR * Brit Gonzáles MD - 09/09/2024 9:46 AM CST [facility] PROGRESS NOTE Name:Obie Sims Age:69-year-old Sex:male :1955 CHIEF COMPLAINT: CHF SUBJECTIVE: Denies CP Tele reviewed: afib with CVR ASSESSMENT AND PLAN: # Acute on chronic HFrEF # CKD # Paroxysmal Afib w/ CVR # CAD, last MPI 02/2024 - no ischemia # Carotid dz/PAD # Prosthetic AV w/ moderate stenosis TTE reviewed. LVEF overall stable, no change from prior TTE EF 43%, moderate to severely enlarged RV with depressed function. Moderate prosthetic AV stenosis. CXR with increasing congestion, c/t diuresing C/t warfarin Abx per primary team Patient Active Problem List Diagnosis S/P ablation of atrial fibrillation LV dysfunction Essential hypertension Mixed hyperlipidemia Diabetes mellitus, type II ([facility]) Coronary artery disease involving robinson coronary artery of robinson heart without angina pectoris COPD (chronic obstructive pulmonary disease) ([facility]) Carotid disease, bilateral ([facility]) Arthritis Aortic stenosis Chronic anticoagulation Chronic atrial fibrillation ([facility]) S/P aortic valve replacement with bioprosthetic valve Varicose veins of bilateral lower extremities with other complications Abnormal ankle brachial index (STELLA) Claudication ([facility]) Pain in both lower extremities Abnormal finding on lung imaging Abnormal finding on pulmonary function testing Shortness of breath TIA (transient ischemic attack) Obstructive sleep apnea (adult) (pediatric) Pulmonary hypertension ([facility]) Asymptomatic carotid artery stenosis, bilateral Mild persistent asthma without complication ([facility]) Leg edema Other closed fracture of distal end of right fibula with routine healing, subsequent encounter NSTEMI (non-ST elevated myocardial infarction) ([facility]) Elevated troponin Elevated brain natriuretic peptide (BNP) level Fall CHF (congestive heart failure) ([facility]) Rib fractures CHF exacerbation ([facility]) 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 breakdown of skin ([facility]) Non-pressure chronic ulcer of left calf limited to breakdown of skin ([facility]) Chronic venous insufficiency Review of Systems: Review of Systems Constitutional: Positive for weakness. Negative for recent unintentional weight gain, recent unintentional weight loss and new or significant fatigue. HENT: Negative for new or significant hearing loss. Eyes: Negative for blurred vision and double vision. Respiratory: Positive for cough and shortness of breath. Negative for snoring. Cardiovascular: See HPI. Positive for leg swelling. Gastrointestinal: Negative for blood in stool and melena. Genitourinary: Negative for dysuria. Musculoskeletal: Negative for myalgias and new or worsening joint stiffness/pain. Skin: Negative for rash. Neurological: Negative for tingling/numbness and focal weakness. Endo/Heme/Allergies: Negative for new or significant bruising/bleeding and polydipsia. Psychiatric/Behavioral: Negative for depression and new or significant memory loss. Medications: Scheduled Meds: acetylcysteine 10 % 200 mg Nebulization 2 times daily allopurinol 200 mg Oral Daily aspirin 81 mg Oral Daily atorvastatin 80 mg Oral Nightly at bedtime clotrimazole-betamethasone Topical Q12H folic acid 1 mg Oral Daily insulin glargine 40 Units Subcutaneous Nightly at bedtime insulin lispro 0-6 Units Subcutaneous 4x Daily AC and at bedtime ipratropium-albuterol 3 mL Nebulization Q4H nystatin 5 mL Oral 4x Daily nystatin Topical BID piperacillin-tazobactam 3.375 g Intravenous Q8H pregabalin 150 mg Oral BID senna-docusate 1 tablet Oral BID sertraline 50 mg Oral Daily traZODone 300 mg Oral Nightly at bedtime vancomycin 750 mg Intravenous Q24H vancomycin pharmacy to dose Intravenous See Admin Instructions warfarin (COUMADIN) pharmacy to dose Oral See Admin Instructions Continuous Infusions: PRN Meds: acetaminophen, albuterol, glucose, dextrose 10 % bolus, [DISCONTINUED] fentaNYL AND [DISCONTINUED] fentaNYL AND fentaNYL, glucagon, HYDROcodone-acetaminophen, HYDROmorphone, hydrOXYzine, naLOXone, ondansetron, polyethylene glycol OBJECTIVE Weight change in the last 24 hours: Body mass index is 31.85 kg/m??. Wt Readings from Last 3 Encounters: 09/08/24 89.5 kg (197 lb 5 oz) 08/24/24 106.6 kg (235 lb) 08/03/24 103 kg (227 lb) Intake/Output past 24 Hours: Intake/Output Summary (Last 24 hours) at 09/09/2024 0946 Last data filed at 09/09/2024 0619 Gross per 24 hour Intake 1136 ml Output 1325 ml Net -189 ml Filed Vitals: 09/08/24 2019 09/09/24 0012 09/09/24 0355 09/09/24 0732 BP: (!) 142/86 (!) 141/76 139/68 (!) 155/87 Pulse: (!) 102 85 85 89 Resp: 22 Temp: 98.4 ??F (36.9 ??C) 97.9 ??F (36.6 ??C) 97.5 ??F (36.4 ??C) 98.4 ??F (36.9 ??C) TempSrc: Oral Oral Temporal Temporal SpO2: 93% 94% 97% 100% Weight: Height: Physical Exam Constitutional: General: He is not in acute distress. Appearance: Normal appearance. He is well-developed. HENT: Nose: No mucosal edema. Mouth/Throat: Pharynx: No oropharyngeal exudate. Neck: Vascular: No JVD. Cardiovascular: Rate and Rhythm: Normal rate and regular rhythm. Chest Wall: PMI is not displaced. Heart sounds: S1 normal and S2 normal. [...] Behavior normal. Thought Content: Thought content normal. LABORATORY/INVESTIGATIONS: Recent Labs 09/07/24 0342 09/08/24 0453 09/09/24 0610 WBC 13.95* 15.12* 12.18* HGB 11.5* 11.1* 11.7* HCT 39.2 37.6 40.1 MCV 96.3 96.2 98.3 PLT 109* 107* 102* Recent Labs 09/07/24 0342 09/08/24 0453 09/09/24 0610 NA 157* 151* 149* K 3.8 3.4* 3.6 CL 124* 117* 115 CO2 30.4 32.3* 29.3 AGAP 2.6 1.7* 4.7 BUN 52* 41* 36* CR 1.78* 1.67* 1.66* GLU 146* 136* 277* Recent Labs 09/09/24 0610 INR 1.5* Results for orders placed or performed during the hospital encounter of 08/31/24 PRO-BRAIN NATRIURETIC PEPTIDE (PRO BNP) Collection Time: 09/03/24 8:29 PM Result Value Ref Range PRO-B TYPE NATRIURETIC PEPTIDE 28,171 (H) <125 PG/ML No results for input(s): TROP , TROPIWB in the last 72 hours. Recent Labs 09/09/24 0610 TP 8.0 ALB 2.5* ALT 31 IMAGING: Reviewed ECG/TELEMETRY Reviewed Signed BRIT GONZÁLES MD 09/09/2024 ROOM SUPERVISOR * Ludy Morrell MD - 09/09/2024 8:09 AM CST [facility] Nephrology Progress Note Obie Sims is a 69-year-old male patient. HPI 69-year-old gentleman with past medical history significant for CKD stage III, atrial fibrillation,heart failure with reduced ejection fraction, coronary disease, aortic stenosis status post bioprosthetic aortic valve placement, pulmonary hypertension, COPD, obstructive sleep apnea, dyslipidemia, diabetes mellitus type 2, stroke, anxiety, hypertension, restless leg syndrome who presented due to BRITTANY and hyperkalemia. Patient had a fall on 08/18/2024, initially declined treatment but ultimately presented to outside ED 2 days ago with rib pain and knee pain. He also reported shortness of breath and lower extremity swelling. His creatinine was found to be 2 with potassium 5.9. Patient transferred to [facility] for BRITTANY and hyperkalemia management. Nephrology consulted to manage kidney disease Subjective 1. Blood pressure stable 2. Transferred out of the ICU 3. good urine output, creatinine improved Review Of Systems Patient reports no chest pain, no dyspnea, no urinary complaints, no nausea, no vomiting. 10 point review system otherwise negative Current Facility-Administered Medications Medication Dose Route Frequency Provider Last Rate Last Admin acetaminophen (TYLENOL) tablet 650 mg 650 mg Oral Q4H PRN Keyona Miller MD acetylcysteine 10 % (MUCOMYST) inhalation solution 200 mg 200 mg Nebulization 2 times daily Nikolas Jiménez MD 200 mg at 09/09/24 0502 albuterol (PROVENTIL) (2.5 MG/3ML) 0.083% nebulizer solution 2.5 mg 2.5 mg Nebulization Q2H PRN Keyona Miller MD 2.5 mg at 09/04/24 0724 allopurinol (ZYLOPRIM) tablet 200 mg 200 mg Oral Daily Keyona Miller MD 200 mg at 09/08/24 0857 aspirin chewable tablet 81 mg 81 mg Oral Daily Keyona Miller MD 81 mg at 09/08/24 0857 atorvastatin (LIPITOR) tablet 80 mg 80 mg Oral Nightly at bedtime Keyona Miller MD 80mg at 09/08/24 1940 clotrimazole-betamethasone (LOTRISONE) cream Topical Q12H Nikolas Jiménez MD Given at 09/08/24 1954 dextrose (GLUTOSE) 40 % oral gel 37.5-75 g 15-30 g of dextrose Oral PRN Keyona Miller MD dextrose 10 % bolus infusion 125-250 mL 125-250 mL Intravenous PRN Keyona Miller MD Stopped at 09/06/24 1640 fentaNYL (SUBLIMAZE) injection 25 mcg 25 mcg Intravenous Q10 Min PRN Keyona Miller MD folic acid (FOLVITE) tablet 1 mg 1 mg Oral Daily Keyona Miller MD 1 mg at 09/08/24 0857 glucagon injection 1 mg 1 mg Intramuscular Once PRN Keyona Miller MD HYDROcodone-acetaminophen (NORCO) 5-325 MG tablet 1 tablet 1 tablet Oral Q4H PRN Keyona Miller MD hydrocortisone sodium succinate (Solu-CORTEF) injection 50 mg 50 mg Intravenous 2 times per day Juanpablo Paresh Herman MD 50 mg at 09/08/24 1946 HYDROmorphone (DILAUDID) injection 0.2 mg 0.2 mg Intravenous Q2H PRN Nikolas Jiménez MD 0.2 mg at 09/04/24 1620 hydrOXYzine (ATARAX) tablet 50 mg 50 mg Per NG Tube TID PRN Keyona Miller MD insulin glargine (LANTUS) injection 40 Units 40 Units Subcutaneous Nightly at bedtime Keyona Abarca MD 40 Units at 09/08/24 194 insulin lispro (HUMALOG/ADMELOG) injection 0-6 Units 0-6 Units Subcutaneous 4x Daily AC and at bedtime Juanpablo Paresh Herman MD 3 Units at 09/09/24 0620 ipratropium-albuterol (DUONEB) 0.5-2.5 (3) MG/3ML nebulizer solution 3 mL 3 mL Nebulization Q4H Keyona Miller MD 3 mL at 09/09/24 0502 naLOXone (NARCAN) injection 0.4 mg 0.4 mg Intravenous PRN Nikolas Jiménez MD nystatin (MYCOSTATIN) 513484 UNIT/ML suspension 5 mL 5 mL Oral 4x Daily Nikolas Jiménez MD 5 mL at 09/08/241940 nystatin (MYCOSTATIN) powder Topical BID Nikolas Jiménez MD Given at 09/08/241952 ondansetron (ZOFRAN) injection 4 mg 4 mg Intravenous Q8H PRN Nikolas Jiménez MD piperacillin-tazobactam (ZOSYN) 3.375 g in sodium chloride 0.9 % 50 mL IVPB 3.375 g Intravenous [id number] Jiménez MD 12.5 mL/hr at 09/09/24 0503 3.375 g at 09/09/24 0503 polyethylene glycol (GLYCOLAX) packet 17 g 17 g Oral Daily PRN Keyona Miller MD pregabalin (LYRICA) capsule 150 mg 150 mg Oral BID Keyona Miller MD 150 mg at 09/08/241939 senna-docusate (SENOKOT-S) 8.6-50 MG tablet 1 tablet 1 tablet Oral BID Keyona Miller MD 1 tablet at 09/08/241939 sertraline (ZOLOFT) tablet 50 mg 50 mg Oral Daily Keyona Miller MD 50 mg at 09/08/24 0857 traZODone (DESYREL) tablet 300 mg 300 mg Oral Nightly at bedtime Juanpablo Herman MD 300 mg at 09/08/24 1940 vancomycin 750 mg in NS 250 mL IVPB 750 mg Intravenous Q24H Juanpablo Herman MD Stopped at 09/08/24 1845 vancomycin pharmacy to dose placeholder Intravenous See Admin Instructions Nikolas Jiménez MD warfarin (COUMADIN) pharmacy to dose placeholder Oral See Admin Instructions Nikolas Jiménez MD Review of patient's allergies indicates: No Known Allergies Principal Problem: CHF exacerbation ([facility]) SNOMED CT(R): ACUTE EXACERBATION OF CHRONIC CONGESTIVE HEART FAILURE Filed Vitals: 09/08/24 2019 09/09/24 0012 09/09/24 0355 09/09/24 0732 BP: (!) 142/86 (!) 141/76 139/68 (!) 155/87 Pulse: (!) 102 85 85 89 Resp: 22 Temp: 98.4 ??F (36.9 ??C) 97.9 ??F (36.6 ??C) 97.5 ??F (36.4 ??C) 98.4 ??F (36.9 ??C) TempSrc: Oral Oral Temporal Temporal SpO2: 93% 94% 97% 100% Weight: Height: Last 3 Recorded Weights 09/03/24 0423 09/04/24 1100 09/08/24 0500 Weight: 95.3 kg (210 lb 1.6 oz) 88.8 kg (195 lb 12.3 oz) 89.5 kg (197 lb 5 oz) Intake/Output Summary (Last 24 hours) at 09/09/2024 0809 Last data filed at 09/09/2024 0619 Gross per 24 hour Intake 1254 ml Output 1950 ml Net -696 ml Physical Exam: -GENERAL: Intubated and sedated -EYES: Extraocular movements intact. -ENT: Neck supple, Septum is midline. DRY oral mucosa. -LUNG: Mildly coarse bilaterally with expiratory wheezing on the right. -CVS: Regular rate, irregularly irregular rhythm, S1 and S2 normal, No murmurs. -ABDOMEN: Soft, nondistended, Nontender, Bowel sounds observed. -EXT: No bilateral lower Ext edema. Gauze wraps around bilateral lower legs. -NEURO: Alert, awake, oriented x3, No gross neuro deficit -SKIN: Skin color, texture, turgor normal. No rashes or lesions LABs Recent Labs Lab 09/03/24202809/04/2441409/05/240 09/05/24 1110 09/05/24199909/06/240 09/06/24124809/06/24202909/07/2434109/08/2445209/09/24 0610 NA 144 148* 152* < > 154* 153* 158* 157* 157* 151* 149* K 4.2 3.5 3.2* < > 4.2 3.8 3.5 4.1 3.8 3.4* 3.6 CL 110 111 114 < > 121* 120* 124* 125* 124* 117* 115 CO2 30.9 31.3 30.7 < > 30.9 31.6 32.0 30.4 30.4 32.3* 29.3 AGAP 3.1 5.7 7.3 < > 2.1 1.4* 2.0 1.6* 2.6 1.7* 4.7 BUN 60* 64* 64* < > 70* 68* 63* 59* 52* 41* 36* CR 2.15* 2.29* 2.44* < > 2.52* 2.16* 1.97* 1.83* 1.78* 1.67* 1.66* GLU 442* 320* 191* < > 230* 189* 70* 85 146* 136* 277* CA 9.7 9.2 9.2 < > 9.2 9.8 8.7 8.8 8.8 9.2 9.2 MAGNESIUM 2.4 2.4 2.6 -- -- 2.8* -- -- 2.7* 2.8* 3.1* PHOS 4.1 4.1 2.8 -- -- 3.1 -- -- 3.4 3.1 3.0 < > = values in this interval not displayed. Recent Labs Lab 09/03/24202809/04/2441409/05/240 09/06/24 04309/07/2434109/08/24 04509/09/24 0610 WBC 17.46* 14.31* 19.33* 13.94* 13.95* 15.12* 12.18* RBC 4.69 4.31* 4.30* 4.09* 4.07* 3.91* 4.08* HGB 13.7 12.1 12.3 11.7* 11.5* 11.1* 11.7* HCT 44.3 40.6 39.5 38.6 39.2 37.6 40.1 MCV 94.5 94.2 91.9 94.4 96.3 96.2 98.3 MCH 29.2 28.1 28.6 28.6 28.3 28.4 28.7 MCHC 30.9* 29.8* 31.1* 30.3* 29.3* 29.5* 29.2* PLT 131* 138* 137* 112* 109* 107* 102* RDW 16.2* 15.9* 15.9* 16.1* 16.0* 15.9* 15.8* MPV 13.2* 11.7* 12.9* 12.6* 12.5* 12.5* 13.2* Assessment/Plan: 69-year-old gentleman with past medical history significant for CKD stage III, atrial fibrillation,heart failure with reduced ejection fraction, coronary disease, aortic stenosis status post bioprosthetic aortic valve placement, pulmonary hypertension, COPD, obstructive sleep apnea, dyslipidemia, diabetes mellitus type 2, stroke, anxiety, hypertension, restless leg syndrome who presented due to BRITTANY and hyperkalemia. Patient had a fall on 08/18/2024, initially declined treatment but ultimately presented to outside ED 2 days ago with rib pain and knee pain. He also reported shortness of breath and lower extremity swelling. His creatinine was found to be 2 with potassium 5.9. Patient transferred to [facility] for BRITTANY and hyperkalemia management. BRITTANY on CKD stage III -Baseline creatinine 1.3-1.5. Patient also follows with Dr. Beltran -At outside hospital creatinine was 2.0, patient received fluids and creatinine increased to 2.8. This is likely related to hemodynamics/fluid overload. -Renal ultrasound showed suboptimal visualization of right kidney. No right sided hydronephrosis. No increase echogenicity. Right kidney 11.6 cm. Left kidney was not seen. -CPK normal, urinalysis 3+ blood and a mild protein WBCs 27 RBCs greater than 182, urine sodium of 88. BRITTANY serology negative -Initial chest x-ray showed pulmonary vascular congestion and interstitial edema -s/p aggressive IV diuresis -Creatinine stable at 1.6 -Currently Lasix on hold due to hypernatremia -Strict I's/O, avoid nephrotoxins 2. HTN. -Blood pressure stable -off Levophed -Continue to avoid STEVIE/ARB 3. Anemia of chronic disease. Hemoglobin stable 4. Electrolytes. -Hypernatremia. Improving . Encouraged to increase oral hydration 5. Renal osteodystrophy. Calcium and phosphorus levels are okay 6. Disposition stable Thank you for allowing me to participate in the care of this patient. We will continue to follow this patient with you. Please contact us with further questions. LUDY MORRELL MD 09/09/2024 ROOM SUPERVISOR * Molly Dominique RN - 09/09/2024 8:03 AM CST Problem: Discharge Planning Goal: Knowledge [...] of new skin breakdown Outcome: Progressing Problem: Reduced risk for falls/injury Goal: Reduced Risk for Falls/Injury Outcome: Progressing Goal: Reduced Risk of Confusion (Acute vs Chronic) Outcome: Progressing Goal: Reduced Risk of Symptomatic Depression Outcome: Progressing Goal: Reduced Risk of Altered Elimination Outcome: Progressing Goal: Reduced Risk of Dizziness/Vertigo/Balance Outcome: Progressing Goal: Reduced Risk of Polypharmacy Outcome: Progressing Problem: Infection - Risk of, Urinary Catheter-Associated Urinary Tract Infection Goal: Absence of Urinary Catheter Associated Urinary Tract (UTI) Infection Signs and Symptoms Outcome: Progressing Problem: Swallowing Goal: STG - Pt will participate in Modified Barium Swallow Study to assess physiology and anatomy of swallow and to determine appropriate diet and/or rehab exercises Outcome: Progressing Problem: Fluid Volume - Imbalanced Goal: Absence of imbalanced fluid volume signs and symptoms Outcome: Progressing Problem: Gas Exchange - Impaired Goal: Adequate oxygenation Outcome: Progressing Problem: Infection - Risk of, Septic Shock Goal: Absence of infection signs and symptoms Outcome: Progressing Problem: Infection - Risk of, Urinary Catheter-Associated Urinary Tract Infection Goal: Absence of infection signs and symptoms Outcome: Progressing Problem: Infection - Risk of, Ventilator-Associated Pneumonia Goal: Absence of infection signs and symptoms Outcome: Progressing Problem: Pain - Acute Goal: Achieve acceptable pain level Outcome: Progressing Goal: Reduced pain sensation Outcome: Progressing Problem: Skin Integrity - Risk of, Impaired Goal: Skin integrity intact Outcome: Progressing Problem: Tissue Perfusion - Cardiopulmonary, Altered Goal: Circulatory function within specified parameters Outcome: Progressing Problem: Venous Thromboembolism - Risk of Goal: Absence of deep venous thrombosis Outcome: Progressing Problem: Infection - Risk of, Central Venous Catheter-Associated Bloodstream Infection Goal: Absence of Central Venous Catheter Associated Bloodstream Infection Signs and Symptoms Outcome: Progressing Problem: Swallowing Goal: STG - Pt will tolerate the least restrictive diet without clinical signs symptoms of aspiration Outcome: Progressing ROOM SUPERVISOR * Juanpablo Herman MD - 09/08/2024 1:39 PM CST Images from the original note were not included. [employer] Hospitalist Progress note Chief Complain: Respiratory failure ASSESSMENT /PLAN: Obie Sims is an 69-year-old male with a past medical history of CKD stage III, atrial fibrillation on warfarin, heart failure with reduced ejection fraction, coronary artery disease, aortic stenosis status post bioprosthetic aortic valve replacement, pulmonary hypertension, COPD/asthma, obstructive sleep apnea, hyperlipidemia, diabetes mellitus type 2, CVA, carotid disease, anxiety/depression, hypertension, PAD, and RLS. He was transferred to [facility] with BRITTANY and hyperkalemia. During this hospitalization patient developed worsening hypoxic respiratory failure requiring intubation, transferred to ICU. In ICU he was treated with IV Lasix drip and also treated for possible aspiration pneumonia. Now extubated, transferred out of ICU ON 09/07/2023 Acute on chronic heart failure with reduced ejection fraction Anasarca Pulmonary hypertension Valvular heart disease Acute respiratory failure with hypoxia -Echocardiogram from February 2024 reveals an ejection fraction of 40 to 45% with bioprosthetic aortic valve, no central or periprosthetic aortic regurgitation, mild mitral regurgitation, and mild tricuspid regurgitation. Worsening hypoxic respiratory failure requiring ICU admission, intubation Now improving. Hypernatremia requiring withholding diuretics continue diuretics as tolerated -Strict intake and output with daily weights. -Continue Oneill. -Hold Entresto in light of BRITTANY -[facility] nephrology consulted Cardiology following, appreciate recommendations- -Oxygen to maintain saturations greater than 89%. Creatinine improving monitor Pneumonia-HCAP versus aspiration Continue broad-spectrum antibiotics Encourage incentive spirometry Supplemental oxygen as needed BRITTANY on CKD stage III improving Hyperkalemia, resolved Hypernatremia Sodium improving Encourage free water intake Discontinue D5 infusion Monitor renal functions, nephrology following Ground-level fall Rib fractures Generalized weakness -CT of the chest shows acute fractures of the seventh and eighth right ribs. -PT/OT consult. -Pain control. -Incentive spirometer. Concern for pneumonia probably HCAP versus aspiration vancomycin and Zosyn added chest x-ray noted WBC still elevated Added Mucomyst continue DuoNebs Hematuria -UA negative. -Likely due to traumatic Oneill insertion and/or trauma to Oneill in setting of supratherapeutic INR.Initial UA with no RBCs. Resolved, monitor Atrial fibrillation Supratherapeutic INR, resolved -INR was 5.4 on presentation. -Continue beta-kim for rate control. -Pharmacy consulted for Coumadin dosing -Monitor telemetry. Diabetes mellitus type 2 -Continue Jardiance. Continue sliding scale insulin and Lantus as indicated Coronary artery disease Hypertension Hyperlipidemia -Heart catheterization from 2020 revealed a 60% proximal LAD stenosis, 50% ostial RCA stenosis, bioprosthetic aortic valve without aortic regurgitation, and severe pulmonary hypertension. -Historically not on aspirin. Continue statin. -Monitor telemetry. COPD/asthma overlap syndrome -Not in acute exacerbation. -Resume inhalers. Oral thrush add nystatin CVA Carotid disease PAD -Continue aspirin and statin. Body mass index is 31.85 kg/m??. DVT Prophylaxis:on warfarin Code Status: DNR Not Medically Ready/Awaiting Clinical Improvement SUBJECTIVE Patient seen and examined. OBJECTIVE Blood pressure (!) 172/81, pulse 72, temperature 97.3 ??F (36.3 ??C), temperature source Axillary, resp. rate 20, height 1.676 m (5' 6 ), weight 89.5 kg (197 lb 5 oz), SpO2 94%. Wt Readings from Last 3 Encounters: 09/08/24 89.5 kg (197 lb 5 oz) 08/24/24 106.6 kg (235 lb) 08/03/24 103 kg (227 lb) Review of Systems All other systems reviewed and are negative. Physical Exam Constitutional: Appearance: He is well-developed. HENT: Head: Normocephalic and atraumatic. Eyes: Pupils: Pupils are equal, round, and reactive to light. Cardiovascular: Rate and Rhythm: Normal rate and regular rhythm. Heart sounds: No murmur heard. No friction rub. Pulmonary: Effort: No respiratory distress. Breath sounds: No wheezing or rales. Chest: Chest wall: No tenderness. Abdominal: General: Bowel sounds are normal. Palpations: Abdomen is soft. Tenderness: There is no abdominal tenderness. There is no guarding or rebound. Musculoskeletal: General: Normal range of motion. Cervical back: Normal range of motion and neck supple. Skin: General: Skin is warm and dry. Findings: No rash. Neurological: Mental Status: He is alert and oriented to person, place, and time. LABS: Recent Labs 09/06/24 0430 09/07/2434109/08/24 0453 WBC 13.94* 13.95* 15.12* HGB 11.7* 11.5* 11.1* HCT 38.6 39.2 37.6 MCV 94.4 96.3 96.2 PLT 112* 109* 107* RBC 4.09* 4.07* 3.91* Recent Labs 09/06/24 0430 09/06/24 1249 09/06/24 2030 09/07/2434109/08/24 0453 ALT 28 -- -- 27 27 AST 29 -- -- 29 22 CO2 31.6 < > 30.4 30.4 32.3* CL 120* < > 125* 124* 117* GLU 189* < > 85 146* 136* K 3.8 < > 4.1 3.8 3.4* NA 153* < > 157* 157* 151* BUN 68* < > 59* 52* 41* < > = values in this interval not displayed. Intake/Output Summary (Last 24 hours) at 09/08/2024 1339 Last data filed at 09/08/2024 1228 Gross per 24 hour Intake 1174 ml Output 1375 ml Net -201 ml Microbiology Results (last 14 days) Procedure Component Value Units Date/Time MRSA PCR nares Screening [[id number]] Collected: 09/07/24 0848 Order Status: Sent Lab Status: No result Specimen: NASAL CULTURE, RESPIRATORY W/ GRAM STAIN [[id number]] Collected: 09/05/24 0740 Order Status: Completed Lab Status: Preliminary result Updated: 09/08/24 0640 Specimen: TRACHEAL ASPIRATE SPEC DESCRIPTION TRACHEAL ASPIRATE SPECIAL REQUESTS NO SPECIAL REQUEST GRAM STAIN RESULT <10 EPITHELIAL CELLS PER LPF GRAM STAIN RESULT >25 NEUTROPHILS PER LPF GRAM STAIN RESULT NO ORGANISMS SEEN CULTURE RESULT NO GROWTH 3 DAYS Gastric PH [[id number]] Order Status: No result Lab Status: No result Specimen: GASTRIC FLUID CULTURE, BACTERIA BLOOD [[id number]] Collected: 09/03/24 1223 Order Status: Completed Lab Status: Preliminary result Updated: 09/07/24 192 Specimen: BLOOD SPEC DESCRIPTION BLOOD SPECIAL REQUESTS NO SPECIAL REQUEST CULTURE RESULT NO GROWTH 4 DAYS CULTURE, URINE [[id number]] Collected: 09/01/24 1110 Order Status: Completed Lab Status: Final result Updated: 09/03/24 0835 Specimen: URINE, CLEAN CATCH SPEC DESCRIPTION URINE CLEAN CATCH SPECIAL REQUESTS NO SPECIAL REQUEST CULTURE RESULT NO GROWTH (< OR = 1,000 CFU/ML) CULTURE, BACTERIA BLOOD X2 [[id number]] Collected: 08/31/24 1034 Order Status: Completed Lab Status: Final result Updated: 09/06/24 0011 Specimen: BLOOD SPEC DESCRIPTION BLOOD SPECIAL REQUESTS NO SPECIAL REQUEST CULTURE RESULT NO GROWTH 5 DAYS Radiology MEDICATIONS Scheduled medications acetylcysteine 10 % 200 mg Nebulization 2 times daily allopurinol 200 mg Oral Daily aspirin 81 mg Oral Daily atorvastatin 80 mg Oral Nightly at bedtime clotrimazole-betamethasone Topical Q12H folic acid 1 mg Oral Daily hydrocortisone 50 mg Intravenous 2 times per day insulin glargine 40 Units Subcutaneous Nightly at bedtime insulin lispro 0-6 Units Subcutaneous 4x Daily AC and at bedtime ipratropium-albuterol 3 mL Nebulization Q4H nystatin 5 mL Oral 4x Daily nystatin Topical BID piperacillin-tazobactam 3.375 g Intravenous Q8H pregabalin 150 mg Oral BID senna-docusate 1 tablet Oral BID sertraline 50 mg Oral Daily traZODone 300 mg Oral Nightly at bedtime vancomycin 750 mg Intravenous Q24H vancomycin pharmacy to dose Intravenous See Admin Instructions warfarin (COUMADIN) pharmacy to dose Oral See Admin Instructions warfarin 1 mg Oral Once Infusion dextrose 75 mL/hr at 09/07/24 2306 PRN acetaminophen, albuterol, glucose, dextrose 10 % bolus, [DISCONTINUED] fentaNYL AND [DISCONTINUED] fentaNYL AND fentaNYL, glucagon, HYDROcodone- acetaminophen, HYDROmorphone, hydrOXYzine, naLOXone, ondansetron, polyethylene glycol JUANPABLO HERMAN MD 1:39 PM 09/08/2024 ROOM SUPERVISOR ROOM SUPERVISOR * Lorena Ramirez RD - 09/08/2024 12:59 PM CST CLINICAL DIETITIAN NOTE Spoke to patient re: intake and ONS. Patient reports he eats some of meals but not 100%. Receptive to trying Magic Cups BID. Magic Cups have been ordered. LORENA RAMIREZ RD, LDN ROOM SUPERVISOR * CONSTANTIN Man - 09/08/2024 12:13 PM CST Speech Therapy Treatment Note Recommended Diet: Puree Solids and Moderately Thick Liquids via Teaspoon *Please discontinue diet if clinical signs of aspiration are observed with intake or worsening respiratory/pulmonary or mental status Recommendations: Medications whole with puree (one at a time) Strict aspiration precautions: seated upright and alert with intake, go slow, small bites ans sips,alternate solids and liquids, sips via spoon Complete feeding assistance with all intake Continue skilled ST for dysphagia management Summary Statement: This patient presents with known and persistent oropharyngeal dysphagia; MOUSTAPHA completed 09/07 revealed mild oropharyngeal dysphagia. Patient with intermittent clinical signs of aspiration following mildly thick liquids and moderately thick liquids via straw this date. Patient alsowith incomplete anterior-posterior bolus transit with minced solids this date. Recommending diet downgrade to puree solids and moderately thick liquids via spoon this date given patient's fair tolerance at the bedside with these consistencies. Patient with fair completion of effortful swallows withmoderate cueing this date. Extensive education was provided to patient and nursing staff regarding patient's dysphagia, diet recommendation, results of session, and aspiration precautions. *Please see attached flowsheet below for objective data: 09/08/24 1100 Therapy Visit CYTOLOGY TEACHER Received on 08/31/24 CYTOLOGY TEACHER Evaluation Completed on 08/31/24 Subjective Patient sitting upright in bed with breakfast tray. Patient pleasant. Reason for Admission Per EMR, Obie Sims is an 69-year-old male with a past medical history of CKD stage III, atrial fibrillation on warfarin, heart failure with reduced ejection fraction, coronary artery disease, aortic stenosis status post bioprosthetic aortic valve replacement, pulmonary hypertension, COPD/asthma, obstructive sleep apnea, hyperlipidemia, diabetes mellitus type 2, CVA, carotid disease, anxiety/depression, hypertension, PAD, and RLS. He was transferred to [facility] with BRITTANY and hyperkalemia. ST consulted due to concerns for aspiration at [facility]. Prior Level of Function General diet and Thin Liquids Living situation Home Mental status Alert;Responsive;Confused Patient stated goals/comments Diet pepsi and coffee- Thin Verified Two Patient Identifiers Yes Patient consents to Therapy Yes Inpatient CYTOLOGY TEACHER Time Calculation CYTOLOGY TEACHER Start Time 901 CYTOLOGY TEACHER Stop Time 928 CYTOLOGY TEACHER Time Calculation (min) 27 min Precautions Precautions Aspiration;Supplemental oxygen Instructed on Precautions Yes;Needs reinforcement and education Pain Pain Patient does not demonstrate pain behaviors Bedside Swallow Interventions Therapeutic trials with analysis of swallow function;Direct instruction in pharyngealexercise program Therapeutic solid trials Level 5 Minced and moist;Level 4 Puree Therapeutic liquid trials Level 3 Moderately thick;Level 2 Mildly thick Oral phase during therapeutic trials Impaired Oral phase signs/symptoms Disorganized mastication;Reduced efficiency of oral intake;Oral residuals Pharyngeal phase during therapeutic trials Impaired Symptomatic for aspiration/penetration Yes Consistencies symptomatic for aspiration/penetration mildly and moderately thick liquids with use of a straw Pharyngeal phase signs/symptoms Coughing;Change in respiratory status Therapeutic trials comment This patient was seen alert and upright in bed for dysphagia treatment session. Patient was offered trials outlined with feeding assistance. Patient with prolonged mastication of minced and moist solids with complete anterior tug captain bolus transit resulting in mild oral residuals. Patient with complete AP transit of puree solids. Patient with a known delayed swallow trigger. Patient with coughing concerning for aspiration with trials of mildly thick liquids via straw and moderately thick liquids via straw. Aware of video swallow study revealing persistent cough throughout evaluation; however, given that impending aspiration was observed with thin liquids during thestudy can not exclude the fact that a spontaneous cough could be related to aspiration. Patient with no immediate, overt signs of aspiration with minced and moist solids and moderately thick liquids via spoon. Single episode of delayed coughing observed with intial trial of puree; however, as trials continued no further clinical signs of aspiration were observed with puree. Pharyngeal exercise program Effortful swallow maneuver Pharyngeal exercise program comment This patient was seen alert and upright in bed for dysphagia treatment session. Patient completed 10 effortful swallows with moderate cueing this date. CYTOLOGY TEACHER Recommendations Ongoing Recommendations CYTOLOGY TEACHER during hospitalization Recommended Solid Diet Level 4 Puree Transitional Food Permitted No Recommended Liquid Consistency Level 3 Moderately thick Recommended Medication Form Whole;With Level 4 Puree Recommended Safety Precautions Slow rate: swallow between bites;Small sips and bites when eating;Upin chair;Fully upright for all PO intake;1:1 close supervision for meals;Reduce distractions Understanding of information was judged to be fair Results/Recommendations discussed with RN, nurse yobany LPN, MD, patient Plan CYTOLOGY TEACHER Treatments/Interventions Swallowing treatment Progress Progressing toward goals CYTOLOGY TEACHER Frequency 3 times/week;4 times/week CYTOLOGY TEACHER Next Appointment 09/08/24 If this is the last treatment note, it will serve as the discharge summary Yes End of Session End of Session Safety Nursing aware of session;Family/friend present with patient;Call light withinreach ROOM SUPERVISOR ROOM SUPERVISOR * Chuyita Bauer, PharmD - 09/08/2024 12:06 PM CST Vancomycin Pharmacokinetic Progress Note Day 5 of therapy Obie Sims is a 69-year-old male for which pharmacy has been consulted to dose vancomycin for Pneumonia. Other antibiotics ordered include zosyn. Allergies: Review of patient's allergies indicates: No Known Allergies Height: 1.676 m (5' 6 ) Weight: 89.5 kg (197 lb 5 oz) Body mass index is 31.85 kg/m??. Temp (24 hr max): Temp Av.9 ??F (36.6 ??C) Min: 97.3 ??F (36.3 ??C) Max: 98.6 ??F (37 ??C) Today's labs and vitals: Lab Results Component Value Date/Time WBC 15.12 (H) 09/08/2024 04:53 AM WBC 13.95 (H) 09/07/2024 03:42 AM WBC 13.94 (H) 09/06/2024 04:30 AM WBC 19.33 (H) 09/05/2024 04:00 AM WBC 14.31 (H) 09/04/2024 04:15 AM Lab Results Component Value Date/Time CR 1.67 (H) 09/08/2024 04:53 AM CR 1.78 (H) 09/07/2024 03:42 AM CR 1.83 (H) 09/06/2024 08:30 PM CR 1.97 (H) 09/06/2024 12:49 PM CR 2.16 (H) 09/06/2024 04:30 AM CrCl = estimated creatinine clearance is 43.1 mL/min (A) (by C-G formula based on SCr of 1.67 mg/dL(H)). Intake/Output Summary (Last 24 hours) at 09/08/2024 1206 Last data filed at 09/08/2024 0953 Gross per 24 hour Intake 756 ml Output 1575 ml Net -819 ml Pertinent Cultures: Date Drawn Site Organism Pertinent Sensitivity 08/31 BCx NGTD 09/01 UCx NGTD 09/03 BCx NGTD 09/05 Tracheal aspirate Cx NGTD 09/07 Mrsa nares Levels: Date Time Level AUC Dose Comments 09/05 1110 14.5 445 1750 x1, 1000 x1 22 hr lvl 09/06 1249 19.5 527 1000 mg 21 hr lvl 09/08 1037 16.2 442 750 mg q24 x 2 doses 17 hr lvl Assessment: Obie Sims is a 69-year-old male who is currently receiving vancomycin. AUC goal is 400 - 600 Current AUC level is Therapeutic Renal function is Improving. Scr 2.52 ->2.16 -> 1.97->1.78-->1.67 Plan: Antibiotic Plan: Will repeat 750 mg q24 x 2 doses, if pt renal function continues to significantly improve, may change tomorrow's dose to 1000 mg Next level due: 09/10 @ 1200 Pharmacy will continue to follow cultures, clinical status, and appropriateness of therapy. Thank you for the consult. Pharmacy Consult per Dr. Neftali Bauer, PharmD Phone: [phone] 09/08/2024 12:06 PM ROOM SUPERVISOR * Chuyita Bauer PharmD - 09/08/2024 10:44 AM CST Warfarin - Pharmacy Dosing Service Note Obie Sims is a 69-year-old male for which pharmacy has been consulted to dose warfarin for A.fib. Goal INR is 2-3. Warfarin Order Set Activated: Yes Warfarin Start Date: continuation from home Past Medical History: Diagnosis Date Abnormal ankle brachial index (STELLA) Acute on chronic heart failure, unspecified heart failure type ([facility]) Anxiety Aortic valve stenosis Arthritis Asthma, mild persistent ([facility]) 04/06/2021 Atrial fibrillation ([facility]) s/p PVI/[facility] 10/2015 Bilateral leg pain Carotid disease, bilateral ([facility]) CHF (congestive heart failure) ([facility]) Claudication ([facility]) COPD (chronic obstructive pulmonary disease) ([facility]/HCC) Coronary artery disease Diabetes mellitus, type II ([facility]) Edema 04/19/2018 2+ pitting History of blood transfusion Hyperlipidemia Hypertension LV dysfunction Non-pressure chronic ulcer of left calf limited to breakdown of skin ([facility]) 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 breakdown of skin ([facility]) Osteoarthritis PAD (peripheral artery disease) ([facility]) Pneumonia Restless leg syndrome S/P aortic valve replacement with bioprosthetic valve 2013 SOB (shortness of breath) Stroke ([facility]) Varicose veins of bilateral lower extremities with other complications Weight gain with edema Home warfarin dose: warfarin 2 mg po daily per med rec Bridging agent: none Vitamin K use: No; (if yes, indicate date, dose, and route) Diet: PO Recent Labs Lab 09/06/24 0430 09/07/24 0342 09/08/24 0453 HGB 11.7* 11.5* 11.1* HCT 38.6 39.2 37.6 PLT 112* 109* 107* AST 29 29 22 ALT 28 27 27 ALKP 109 110 104 ALB 2.3* 2.4* 2.3* Date INR Dose Received 08/28 5.4 per [facility] paperwork - 08/29 - - 08/30 2.7 2 mg at [facility] 08/31 1.8 - 09/01 1.6 2 mg 09/02 1.9 2 mg 09/03 2.6 hold 09/04 3.7 hold 09/05 2.2 2 mg 09/06 1.7 Missed dose as was npo 09/07 1.4 2 mg 09/08 1.8 2 mg Drug interactions: Potential to increase INR: zosyn Potential to decrease INR: - Potential to increase the risk of bleeding: aspirin, sertraline Warfarin Sensitivity: moderate, based on the following risk factors: thrombocytopenia, end state renal disease or Scr > 2.2, and age 66-79. Hgb/Hct today are stable INR today subtherapeutic The plan is to give 1 mg tonight, pt previously has been supratherapeutic with 2 mg daily - may have to alternate 2 mg and 1 mg to prevent pt from going supratherapeutic. Will recheck an INR in the morning to assist with subsequent dosing. Pharmacy will continue to monitor labs and notes daily, adjusting the dose as clinically appropriate. Thank you for the consult. Pharmacy to dose per Dr. Neftali Bauer, Reina Phone number: [phone] 09/08/2024 10:44 AM ROOM SUPERVISOR * Maria M Alexandra RN - 09/08/2024 10:30 AM CST 09/08/24 1030 Interdisciplinary Group Conference Team Members Present Physician;Case/Care management;Nursing Physician present for group conference Dr. Herman Patient Current Status Paient current status Inpatient Barriers to Discharge Inpatient Review Barriers to Discharge Inpatient No Barrier- Medical Milestone in Process No Barrier- Medical Milestone in Process follow up increased sodium, increased wbc's Patient expects to be discharged to Patient expects to be discharged to: [facility]( SNF) (Multiple referrals pending) [phone]: Spoke with patient at bedside to see what facilities he would like referrals sent to for SNF.He was able to let me know that he would like either [facility] or [facility]. Multiple referrals pending. [phone]: Anette from [facility] as well as [facility] and she thinks they will accept. She will get back to me soon with info. SHAHNAZRR faxed to Anette. Please follow up with Anette on Wednesday to update her on patient's status. ROOM SUPERVISOR ROOM SUPERVISOR ROOM SUPERVISOR * Molly Dominique RN - 09/08/2024 8:09 AM CST Problem: Discharge Planning Goal: Knowledge [...] of new skin breakdown Outcome: Progressing Problem: Reduced risk for falls/injury Goal: Reduced Risk for Falls/Injury Outcome: Progressing Goal: Reduced Risk of Confusion (Acute vs Chronic) Outcome: Progressing Goal: Reduced Risk of Symptomatic Depression Outcome: Progressing Goal: Reduced Risk of Altered Elimination Outcome: Progressing Goal: Reduced Risk of Dizziness/Vertigo/Balance Outcome: Progressing Goal: Reduced Risk of Polypharmacy Outcome: Progressing Problem: Infection - Risk of, Urinary Catheter-Associated Urinary Tract Infection Goal: Absence of Urinary Catheter Associated Urinary Tract (UTI) Infection Signs and Symptoms Outcome: Progressing Problem: Swallowing Goal: STG - Pt will participate in Modified Barium Swallow Study to assess physiology and anatomy of swallow and to determine appropriate diet and/or rehab exercises Outcome: Progressing Problem: Fluid Volume - Imbalanced Goal: Absence of imbalanced fluid volume signs and symptoms Outcome: Progressing Problem: Gas Exchange - Impaired Goal: Adequate oxygenation Outcome: Progressing Problem: Infection - Risk of, Septic Shock Goal: Absence of infection signs and symptoms Outcome: Progressing Problem: Infection - Risk of, Urinary Catheter-Associated Urinary Tract Infection Goal: Absence of infection signs and symptoms Outcome: Progressing Problem: Infection - Risk of, Ventilator-Associated Pneumonia Goal: Absence of infection signs and symptoms Outcome: Progressing Problem: Pain - Acute Goal: Achieve acceptable pain level Outcome: Progressing Goal: Reduced pain sensation Outcome: Progressing Problem: Skin Integrity - Risk of, Impaired Goal: Skin integrity intact Outcome: Progressing Problem: Tissue Perfusion - Cardiopulmonary, Altered Goal: Circulatory function within specified parameters Outcome: Progressing Problem: Venous Thromboembolism - Risk of Goal: Absence of deep venous thrombosis Outcome: Progressing Problem: Infection - Risk of, Central Venous Catheter-Associated Bloodstream Infection Goal: Absence of Central Venous Catheter Associated Bloodstream Infection Signs and Symptoms Outcome: Progressing ROOM SUPERVISOR * Ludy Morrell MD - 09/08/2024 7:36 AM CST [facility] Nephrology Progress Note Obie Sims is a 69-year-old male patient. HPI 69-year-old gentleman with past medical history significant for CKD stage III, atrial fibrillation,heart failure with reduced ejection fraction, coronary disease, aortic stenosis status post bioprosthetic aortic valve placement, pulmonary hypertension, COPD, obstructive sleep apnea, dyslipidemia, diabetes mellitus type 2, stroke, anxiety, hypertension, restless leg syndrome who presented due to BRITTANY and hyperkalemia. Patient had a fall on 08/18/2024, initially declined treatment but ultimately presented to outside ED 2 days ago with rib pain and knee pain. He also reported shortness of breath and lower extremity swelling. His creatinine was found to be 2 with potassium 5.9. Patient transferred to [facility] for BRITTANY and hyperkalemia management. Nephrology consulted to manage kidney disease Subjective 1. Blood pressure stable 2. Transferred out of the ICU 3. good urine output, creatinine improved Review Of Systems Patient reports no chest pain, no dyspnea, no urinary complaints, no nausea, no vomiting. 10 point review system otherwise negative Current Facility-Administered Medications Medication Dose Route Frequency Provider Last Rate Last Admin acetaminophen (TYLENOL) tablet 650 mg 650 mg Oral Q4H PRN Keyona Miller MD acetylcysteine 10 % (MUCOMYST) inhalation solution 200 mg 200 mg Nebulization 2 times daily Nikolas Jiménez MD 200 mg at 09/07/242046 albuterol (PROVENTIL) (2.5 MG/3ML) 0.083% nebulizer solution 2.5 mg 2.5 mg Nebulization Q2H PRN Keyona Miller MD 2.5 mg at 09/04/24 0724 allopurinol (ZYLOPRIM) tablet 200 mg 200 mg Oral Daily Keyona Miller MD 200 mg at 09/07/24 1211 aspirin chewable tablet 81 mg 81 mg Oral Daily Keyona Miller MD 81 mg at 09/07/24 1212 atorvastatin (LIPITOR) tablet 80 mg 80 mg Oral Nightly at bedtime Keyona Miller MD 80mg at 09/07/24 203 clotrimazole-betamethasone (LOTRISONE) cream Topical Q12H Nikolas Jiménez MD Given at 09/07/24 2210 dextrose (GLUTOSE) 40 % oral gel 37.5-75 g 15-30 g of dextrose Oral PRN Keyona Miller MD dextrose 10 % bolus infusion 125-250 mL 125-250 mL Intravenous PRN Keyona Miller MD Stopped at 09/06/24 1640 dextrose 5 % infusion Intravenous Continuous Juanpablo Paresh Herman MD 75 mL/hr at 09/07/24 2306 New Bagat 09/07/24 2306 fentaNYL (SUBLIMAZE) injection 25 mcg 25 mcg Intravenous Q10 Min PRN Keynoa Miller MD folic acid (FOLVITE) tablet 1 mg 1 mg Oral Daily Keyona Miller MD glucagon injection 1 mg 1 mg Intramuscular Once PRN Keyona Miller MD HYDROcodone-acetaminophen (NORCO) 5-325 MG tablet 1 tablet 1 tablet Oral Q4H PRN Keyona Miller MD hydrocortisone sodium succinate (Solu-CORTEF) 50 mg in sodium chloride bacteriostatic 0.9 % 1 mL injection 50 mg Intravenous 2 times per day Keyona Miller MD 50 mg at 09/07/24 2202 HYDROmorphone (DILAUDID) injection 0.2 mg 0.2 mg Intravenous Q2H PRN Nikolas Jiménez MD 0.2 mg at 09/04/24 1620 hydrOXYzine (ATARAX) tablet 50 mg 50 mg Per NG Tube TID PRN Keyona Miller MD insulin glargine (LANTUS) injection 40 Units 40 Units Subcutaneous Nightly at bedtime Keyona Abarca MD 40 Units at 09/07/24 2148 insulin lispro (HUMALOG/ADMELOG) injection 0-15 Units 0-15 Units Subcutaneous Q4H Keyona Miller MD 4 Units at 09/08/24 0108 ipratropium-albuterol (DUONEB) 0.5-2.5 (3) MG/3ML nebulizer solution 3 mL 3 mL Nebulization Q4H Keyona Miller MD 3 mL at 09/08/24 0637 naLOXone (NARCAN) injection 0.4 mg 0.4 mg Intravenous PRN Nikolas Jiménez MD nystatin (MYCOSTATIN) 071812 UNIT/ML suspension 5 mL 5 mL Oral 4x Daily Nikolas Jiménez MD 5 mL at 09/07/242032 nystatin (MYCOSTATIN) powder Topical BID Nikolas Jiménez MD Given at 09/07/242149 ondansetron (ZOFRAN) injection 4 mg 4 mg Intravenous Q8H PRN Nikolas Jiménez MD piperacillin-tazobactam (ZOSYN) 3.375 g in sodium chloride 0.9 % 50 mL IVPB 3.375 g Intravenous E0IOwchufanny Jiménez MD 12.5 mL/hr at 09/08/24 0551 3.375 g at 09/08/24 0551 polyethylene glycol (GLYCOLAX) packet 17 g 17 g Oral Daily PRN Keyona Miller MD pregabalin (LYRICA) capsule 150 mg 150 mg Oral BID Keyona Miller MD 150 mg at 09/07/242031 senna-docusate (SENOKOT-S) 8.6-50 MG tablet 1 tablet 1 tablet Oral BID Keyona Miller MD 1 tablet at 09/07/242034 sertraline (ZOLOFT) tablet 50 mg 50 mg Oral Daily eKyona Miller MD 50 mg at 09/07/241211 traZODone (DESYREL) tablet 300 mg 300 mg Oral Nightly at bedtime Juanpablo Paresh Herman MD 300 mg at 09/07/242128 vancomycin pharmacy to dose placeholder Intravenous See Admin Instructions Nikolas Jiménez MD warfarin (COUMADIN) pharmacy to dose placeholder Oral See Admin Instructions Nikolas Jiménez MD Review of patient's allergies indicates: No Known Allergies Principal Problem: CHF exacerbation ([facility]) SNOMED CT(R): ACUTE EXACERBATION OF CHRONIC CONGESTIVE HEART FAILURE Filed Vitals: 09/07/24 2107 09/08/24 0033 09/08/24 0432 09/08/24 0500 BP: 139/82 134/80 132/79 Pulse: 83 98 65 Resp: 17 17 Temp: 98.6 ??F (37 ??C) 98.1 ??F (36.7 ??C) TempSrc: Oral Oral SpO2: 94% 93% 99% Weight: 89.5 kg (197 lb 5 oz) Height: Last 3 Recorded Weights 09/03/24 0423 09/04/24 1100 09/08/24 0500 Weight: 95.3 kg (210 lb 1.6 oz) 88.8 kg (195 lb 12.3 oz) 89.5 kg (197 lb 5 oz) Intake/Output Summary (Last 24 hours) at 09/08/2024 0737 Last data filed at 09/08/2024 0432 Gross per 24 hour Intake 520 ml Output 1540 ml Net -1020 ml Physical Exam: -GENERAL: Intubated and sedated -EYES: Extraocular movements intact. -ENT: Neck supple, Septum is midline. DRY oral mucosa. -LUNG: Mildly coarse bilaterally with expiratory wheezing on the right. -CVS: Regular rate, irregularly irregular rhythm, S1 and S2 normal, No murmurs. -ABDOMEN: Soft, nondistended, Nontender, Bowel sounds observed. -EXT: No bilateral lower Ext edema. Gauze wraps around bilateral lower legs. -NEURO: Alert, awake, oriented x3, No gross neuro deficit -SKIN: Skin color, texture, turgor normal. No rashes or lesions LABs Recent Labs Lab 09/01/24 0819 09/02/24 0030 09/02/24 2325 09/03/24 0506 09/03/24 2029 09/04/24 0415 09/05/24 0400 09/05/24 1110 09/05/24199909/06/24 0430 09/06/24 1249 09/06/24 2030 09/07/24 0342 09/08/24 0453 NA 141 < > 145 < > 144 148* 152* 150* 154* 153* 158* 157* 157* 151* K 4.9 < > 4.1 < > 4.2 3.5 3.2* 2.8* 4.2 3.8 3.5 4.1 3.8 3.4* CL 110 < > 112 < > 110 111 114 113 121* 120* 124* 125* 124* 117* CO2 21.2 < > 29.6 < > 30.9 31.3 30.7 25.6 30.9 31.6 32.0 30.4 30.4 32.3* AGAP 9.8 < > 3.4 < > 3.1 5.7 7.3 11.4* 2.1 1.4* 2.0 1.6* 2.6 1.7* BUN 70* < > 56* < > 60* 64* 64* 53* 70* 68* 63* 59* 52* 41* CR 2.28* < > 1.90* < > 2.15* 2.29* 2.44* 1.92* 2.52* 2.16* 1.97* 1.83* 1.78* 1.67* GLU 121* < > 238* < > 442* 320* 191* 177* 230* 189* 70* 85 146* 136* CA 9.7 < > 9.3 < > 9.7 9.2 9.2 6.3* 9.2 9.8 8.7 8.8 8.8 9.2 MAGNESIUM 2.5 -- -- -- 2.4 2.4 2.6 -- -- 2.8* -- -- 2.7* 2.8* PHOS -- < > 3.1 -- 4.1 4.1 2.8 -- -- 3.1 -- -- 3.4 3.1 < > = values in this interval not displayed. Recent Labs Lab 09/03/24 0506 09/03/24202809/04/24 0415 09/05/24 0400 09/06/24 0430 09/07/24 0342 09/08/24 0453 WBC 13.49* 17.46* 14.31* 19.33* 13.94* 13.95* 15.12* RBC 4.17* 4.69 4.31* 4.30* 4.09* 4.07* 3.91* HGB 11.9* 13.7 12.1 12.3 11.7* 11.5* 11.1* HCT 39.1 44.3 40.6 39.5 38.6 39.2 37.6 MCV 93.8 94.5 94.2 91.9 94.4 96.3 96.2 MCH 28.5 29.2 28.1 28.6 28.6 28.3 28.4 MCHC 30.4* 30.9* 29.8* 31.1* 30.3* 29.3* 29.5* PLT 111* 131* 138* 137* 112* 109* 107* RDW 16.1* 16.2* 15.9* 15.9* 16.1* 16.0* 15.9* MPV 11.9* 13.2* 11.7* 12.9* 12.6* 12.5* 12.5* Assessment/Plan: 69-year-old gentleman with past medical history significant for CKD stage III, atrial fibrillation,heart failure with reduced ejection fraction, coronary disease, aortic stenosis status post bioprosthetic aortic valve placement, pulmonary hypertension, COPD, obstructive sleep apnea, dyslipidemia, diabetes mellitus type 2, stroke, anxiety, hypertension, restless leg syndrome who presented due to BRITTANY and hyperkalemia. Patient had a fall on 08/18/2024, initially declined treatment but ultimately presented to outside ED 2 days ago with rib pain and knee pain. He also reported shortness of breath and lower extremity swelling. His creatinine was found to be 2 with potassium 5.9. Patient transferred to [facility] for BRITTANY and hyperkalemia management. BRITTANY on CKD stage III -Baseline creatinine 1.3-1.5. Patient also follows with Dr. Beltran -At outside hospital creatinine was 2.0, patient received fluids and creatinine increased to 2.8. This is likely related to hemodynamics/fluid overload. -Renal ultrasound showed suboptimal visualization of right kidney. No right sided hydronephrosis. No increase echogenicity. Right kidney 11.6 cm. Left kidney was not seen. -CPK normal, urinalysis 3+ blood and a mild protein WBCs 27 RBCs greater than 182, urine sodium of 88. BRITTANY serology negative -Initial chest x-ray showed pulmonary vascular congestion and interstitial edema -s/p aggressive IV diuresis -Creatinine currently 1.6 -Currently Lasix on hold as patient developed hypernatremia -Strict I's/O, avoid nephrotoxins 2. HTN. -Blood pressure stable -off Levophed -Continue to avoid STEVIE/ARB 3. Anemia of chronic disease. Hemoglobin stable 4. Electrolytes. -Hypernatremia. Improving . on D5 water . Monitor sodium closely 5. Renal osteodystrophy. Calcium and phosphorus levels are okay 6. Disposition stable Thank you for allowing me to participate in the care of this patient. We will continue to follow this patient with you. Please contact us with further questions. LUDY MORRELL MD 09/08/2024 ROOM SUPERVISOR * Irene Javier, PharmD - 09/07/2024 4:10 PM CST Warfarin - Pharmacy Dosing Service Note Obie Sims is a 69-year-old male for which pharmacy has been consulted to dose warfarin for A.fib. Goal INR is 2-3. Warfarin Order Set Activated: Yes Warfarin Start Date: continuation from home Past Medical History: Diagnosis Date Abnormal ankle brachial index (STELLA) Acute on chronic heart failure, unspecified heart failure type ([facility]) Anxiety Aortic valve stenosis Arthritis Asthma, mild persistent ([facility]) 04/06/2021 Atrial fibrillation ([facility]) s/p PVI/[facility] 10/2015 Bilateral leg pain Carotid disease, bilateral ([facility]) CHF (congestive heart failure) ([facility]) Claudication ([facility]) COPD (chronic obstructive pulmonary disease) ([facility]) Coronary artery disease Diabetes mellitus, type II ([facility]) Edema 04/19/2018 2+ pitting History of blood transfusion Hyperlipidemia Hypertension LV dysfunction Non-pressure chronic ulcer of left calf limited to breakdown of skin ([facility]) 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 breakdown of skin ([facility]) Osteoarthritis PAD (peripheral artery disease) ([facility]) Pneumonia Restless leg syndrome S/P aortic valve replacement with bioprosthetic valve 2013 SOB (shortness of breath) Stroke ([facility]) Varicose veins of bilateral lower extremities with other complications Weight gain with edema Home warfarin dose: warfarin 2 mg po daily per med rec Bridging agent: none Vitamin K use: No; (if yes, indicate date, dose, and route) Diet: PO Recent Labs Lab 09/05/24 0400 09/06/24 0430 09/07/24 0342 HGB 12.3 11.7* 11.5* HCT 39.5 38.6 39.2 PLT 137* 112* 109* AST 19 29 29 ALT 21 28 27 ALKP 119* 109 110 ALB 2.4* 2.3* 2.4* Date INR Dose Received 08/28 5.4 per [facility] paperwork - 08/29 - - 08/30 2.7 2 mg at [facility] 08/31 1.8 - 09/01 1.6 2 mg 09/02 1.9 2 mg 09/03 2.6 hold 09/04 3.7 hold 09/05 2.2 2 mg 09/06 1.7 Missed dose as was npo 09/07 1.4 2 mg Drug interactions: Potential to increase INR: zosyn Potential to decrease INR: - Potential to increase the risk of bleeding: aspirin, sertraline Warfarin Sensitivity: moderate, based on the following risk factors: thrombocytopenia, end state renal disease or Scr > 2.2, and age 66-79. Hgb/Hct today are stable INR today subtherapeutic The plan is to give 2 mg tonight (missed last nights dose due to being npo; passed MOUSTAPHA today), recheck an INR in the morning to assist with subsequent dosing. Pharmacy will continue to monitor labs and notes daily, adjusting the dose as clinically appropriate. Thank you for the consult. Pharmacy to dose per Dr. Neftali JAVIER, PharmD Phone number: [phone] 09/07/2024 4:10 PM ROOM SUPERVISOR * Irene Javier PharmD - 09/07/2024 4:04 PM CST Vancomycin Pharmacokinetic Progress Note Day 4 of therapy Obie Sims is a 69-year-old male for which pharmacy has been consulted to dose vancomycin for Pneumonia. Other antibiotics ordered include zosyn. Allergies: Review of patient's allergies indicates: No Known Allergies Height: 1.676 m (5' 6 ) Weight: 88.8 kg (195 lb 12.3 oz) Body mass index is 31.6 kg/m??. Temp (24 hr max): Temp Av.4 ??F (36.9 ??C) Min: 97.2 ??F (36.2 ??C) Max: 99.4 ??F (37.4 ??C) Today's labs and vitals: Lab Results Component Value Date/Time WBC 13.95 (H) 09/07/2024 03:42 AM WBC 13.94 (H) 09/06/2024 04:30 AM WBC 19.33 (H) 09/05/2024 04:00 AM WBC 14.31 (H) 09/04/2024 04:15 AM WBC 17.46 (H) 09/03/2024 08:29 PM Lab Results Component Value Date/Time CR 1.78 (H) 09/07/2024 03:42 AM CR 1.83 (H) 09/06/2024 08:30 PM CR 1.97 (H) 09/06/2024 12:49 PM CR 2.16 (H) 09/06/2024 04:30 AM CR 2.52 (H) 09/05/2024 08:00 PM CrCl = estimated creatinine clearance is 40.3 mL/min (A) (by C-G formula based on SCr of 1.78 mg/dL(H)). Intake/Output Summary (Last 24 hours) at 09/07/2024 1604 Last data filed at 09/07/2024 1500 Gross per 24 hour Intake 1010.75 ml Output 2165 ml Net -1154.25 ml Pertinent Cultures: Date Drawn Site Organism Pertinent Sensitivity 08/31 BCx NGTD 09/01 UCx NGTD 09/03 BCx NGTD 09/05 Tracheal aspirate Cx NGTD 09/07 Mrsa nares Levels: Date Time Level AUC Dose Comments 09/05 1110 14.5 445 1750 x1, 1000 x1 22 hr lvl 09/06 1249 19.5 527 1000 mg 21 hr lvl Assessment: Obie Sims is a 69-year-old male who is currently receiving vancomycin. AUC goal is 400 - 600 Current AUC level is Therapeutic Renal function is Improving. Scr 2.52 ->2.16 -> 1.97->1.78 Plan: Antibiotic Plan: 750 mg q24h x2 (est AUC 497) Next level due: 09/08 @1000 Pharmacy will continue to follow cultures, clinical status, and appropriateness of therapy. Thank you for the consult. Pharmacy Consult per Dr. Neftali JAVIER PharmD Phone: [phone] 09/07/2024 4:04 PM ROOM SUPERVISOR * Joe Lund, CYTOLOGY TEACHER - 09/07/2024 2:41 PM CST Speech Pathology Video Oropharyngeal Swallow Study (MOUSTAPHA) Recommended Diet: Minced and Moist diet with mildly thick liquids, meds whole in pureed. Recommendations: Initiate Minced and Moist diet with mildly thick liquids. Strict aspiration precautions: upright 90 degrees (to chair for meal if possible), slow rate, alternate bites/sips, meds whole in pureed, discontinue diet with concerns for aspiration. ST will continue to follow. Assessment: Patient presents with mild oropharyngeal dysphagia, characterized by weakened oral transit with mild buccal loss of liquid boluses at times, reduced base of tongue retraction, delayed triggering of swallow, and reduced laryngeal elevation resulting in penetration without ejection with and without compensatory strategies with thin liquids on MOUSTAPHA this date. Very shallow flash penetration with ejection noted with mild and moderately thick liquids x1 during study. No aspiration observed. Objective: This patient was seen in radiology for Video Oropharyngeal Swallow Study (MOUSTAPHA) with a left lateral view. Patient accepted barium trials of thin liquid, mildly thick liquid (nectar), moderately thick liquid (honey), pureed, and hard solid consistencies. Patient with adequate lip seal around spoon and straw. Anterior-posterior transit was extended, with partial buccal loss of liquids noted at times. Trigger of the pharyngeal swallow was delayed, with premature spillage to pyriform sinuses with liquid consistencies. Tongue base retraction was reduced; laryngeal elevation was reduced;anterior excursion of the larynx was reduced; epiglottic inversion was reduced; pharyngeal stripping wave was reduced. There were mild to moderate (x1) residuals in the vallecuale after the swallow. Shallow, flash penetration with mildly thick and moderately thick liquids x1. Sustained penetration with and without chin tuck with thin liquids, which could indicate impending aspiration. No direct aspiration observed on study. Trace residual in oropharynx post trials. Of note, patient with cough noted during study, which appeared mostly unrelated to swallow. Please note performance on MOUSTAPHA may not reflect oropharyngeal swallow function in its entirety as it is a small snapshot in time and external factors may negatively impact overall function such as fatigue, bite size, rate of intake, positioning, level of alertness, and accurate thickening/modification of diet at bedside. Please refer to the radiologist's report for further details and to [facility] for images. TIME IN: 1336 TIME OUT: 1351 INTERPRETATION: 1636-1262 TOTAL TIME: 25 MIN 09/07/24 1439 Therapy Visit CYTOLOGY TEACHER Received on 08/31/24 CYTOLOGY TEACHER Evaluation Completed on 08/31/24 Subjective Patient sitting upright in fluro chair for left lateral view of swallow for MOUSTAPHA s/p recent extubation. Patient eager to complete evaluation to eat and drink something. He with without 02 for this evaluation, clinically looked better up in chair. RN present for evaluation. Of note, patient with cough throughout session, appeared mostly unrelated to swallow. Reason for Admission Per EMR, Obie Sims is an 69-year-old male with a past medical history of CKD stage III, atrial fibrillation on warfarin, heart failure with reduced ejection fraction, coronary artery disease, aortic stenosis status post bioprosthetic aortic valve replacement, pulmonary hypertension, COPD/asthma, obstructive sleep apnea, hyperlipidemia, diabetes mellitus type 2, CVA, carotid disease, anxiety/depression, hypertension, PAD, and RLS. He was transferred to [facility] with BRITTANY and hyperkalemia. consulted due to concerns for aspiration at [facility]. Prior Level of Function General diet and Thin Liquids Living situation Home Mental status Alert;Responsive;Confused Verified Two Patient Identifiers Yes Patient consents to Therapy Yes Inpatient CYTOLOGY TEACHER Time Calculation CYTOLOGY TEACHER Start Time 1336 CYTOLOGY TEACHER Stop Time 1351 CYTOLOGY TEACHER Time Calculation (min) 15 min Precautions Precautions Aspiration Instructed on Precautions Yes;Needs reinforcement and education Pain Pain Patient does not offer or c/o pain CYTOLOGY TEACHER Recommendations Ongoing Recommendations CYTOLOGY TEACHER during hospitalization Recommended Diet Change Yes Previous Diet NPO Recommended Solid Diet Level 5 Minced and moist Transitional Food Permitted No Recommended Liquid Consistency Level 2 Mildly thick Recommended Medication Form With Level 4 Puree;Whole Recommended Safety Precautions Slow rate: swallow between bites;Small sips and bites when eating;Upin chair;Fully upright for all PO intake;1:1 close supervision for meals;Reduce distractions Understanding of information was judged to be fair Results/Recommendations discussed with RNMD, patient Plan CYTOLOGY TEACHER Treatments/Interventions Swallowing treatment Progress Progressing toward goals CYTOLOGY TEACHER Frequency 3 times/week;5 times/week CYTOLOGY TEACHER Plan for Next Session MOUSTAPHA CYTOLOGY TEACHER Next Appointment 09/07/24 If this is the last treatment note, it will serve as the discharge summary Yes End of Session End of Session Safety Nursing aware of session ROOM SUPERVISOR * CONSTANTIN Carmona - 09/07/2024 12:12 PM CST CYTOLOGY TEACHER Initial Clinical Dysphagia Re-Evaluation Diet Recommendation: NPO except meds crushed in pureed pending MOUSTAPHA. Allow ice chips sparingly postgood oral care for comfort only. Recommendations: Continue NPO pending MOUSTAPHA. Meds crushed in pureed, allow ice chips sparingly following good oral care for comfort only. ST will follow for MOUSTAPHA and dysphagia treatment as indicated. Summary Statement: Patient presents with intermittent signs of aspiration with all tested consistencies on bedside assessment, delayed in nature, which makes bedside assessment difficult given patient's current pulmonary condition. Recommend NPO pending MOUSTAPHA to further evaluation for diet determination. Objective: This patient was seen at bedside for initial swallowing evaluation. Patient accepted trials of thin liquid, moderately thick liquid (honey), pureed consistencies fed by CYTOLOGY TEACHER. Oral mechanism--Symmetrical facial features. Overall, mildly reduced strength and ROM. Oral phase--Mildly reduced lip seal around spoon and straw. Timely and complete anterior-posterior transit of bolus within oral cavity. No anterior leakage or spillage and no oral holding or pocketing observed. Pharyngeal phase--Suspect delayed trigger of the pharyngeal swallow with reduced hyolaryngeal elevation upon palpation; multiple swallows at times with small bolus. No immediate clinical signs/symptoms of aspiration including choking, coughing or wet respiration; however, delayed cough noted with all tested consistencies at times during evaluation. Due to delayed nature in cough, current pulmonary condition, h/o recent decompensation requiring intubation, recommend MOUSTAPHA to further evaluation prior to diet advancement. 09/07/24 1210 Therapy Visit CYTOLOGY TEACHER Received on 08/31/24 CYTOLOGY TEACHER Evaluation Completed on 08/31/24 Subjective Patient resting in bed upon arrival. Repositioned upright in bed for re-evaluation. Patient with good vocal intensity, mild harsh quality s/p recent intubation 09/03-09/06. Patient known to ST, previously on modified diet post MOUSTAPHA. Since then, he was with decompensation and intubated. Eager to eat and drink something. Patient's daughter present for evaluation. Reason for Admission Per EMR, Obie Sims is an 69-year-old male with a past medical history of CKD stage III, atrial fibrillation on warfarin, heart failure with reduced ejection fraction, coronary artery disease, aortic stenosis status post bioprosthetic aortic valve replacement, pulmonary hypertension, COPD/asthma, obstructive sleep apnea, hyperlipidemia, diabetes mellitus type 2, CVA, carotid disease, anxiety/depression, hypertension, PAD, and RLS. He was transferred to [facility] with BRITTANY and hyperkalemia. consulted due to concerns for aspiration at [facility]. Prior Level of Function General diet and Thin Liquids Living situation Home Mental status Alert;Responsive;Confused Verified Two Patient Identifiers Yes Patient consents to Therapy Yes Inpatient CYTOLOGY TEACHER Time Calculation CYTOLOGY TEACHER Start Time 1128 CYTOLOGY TEACHER Stop Time 1158 CYTOLOGY TEACHER Time Calculation (min) 30 min Precautions Precautions Aspiration;Supplemental oxygen Instructed on Precautions Yes;Needs reinforcement and education Pain Pain Patient does not offer or c/o pain CYTOLOGY TEACHER Recommendations Ongoing Recommendations CYTOLOGY TEACHER during hospitalization Recommended Diet Change No Previous Diet NPO Recommended Solid Diet NPO Transitional Food Permitted No Recommended Liquid Consistency NPO Recommended Medication Form With Level 4 Puree;Crushed Recommended Safety Precautions Slow rate: swallow between bites;Small sips and bites when eating;Upin chair;Fully upright for all PO intake;1:1 close supervision for meals;Reduce distractions Understanding of information was judged to be inadequate by patient Results/Recommendations discussed with RN MD, patient, family Plan CYTOLOGY TEACHER Treatments/Interventions Swallowing treatment;Video swallow study Progress Progressing toward goals CYTOLOGY TEACHER Frequency 3 times/week;4 times/week CYTOLOGY TEACHER Plan for Next Session MOUSTAPHA CYTOLOGY TEACHER Next Appointment 09/07/24 If this is the last treatment note, it will serve as the discharge summary Yes End of Session End of Session Safety Bed alarm set/activated;Call light within reach;Nursing aware of session;Family/friend present with patient ROOM SUPERVISOR * Keyona Mliler MD - 09/07/2024 8:47 AM CST Images from the original note were not included. Critical Care Medicine [facility], [place], [place] Symplr (Doc Halo) 15/03: [facility] Engine Oiler On-call Progress note Reason for ICU admission: Acute respiratory failure with hypoxia Subjective Patient alert and oriented. Pending speech evaluation. Input/Output 09/06 0700 - 09/07 0659 In: 6668.6 [I.V.:2318.8] Out: 2455 [Urine:2455] Intake/Output Summary (Last 24 hours) at 09/07/2024 0847 Last data filed at 09/07/2024 0800 Gross per 24 hour Intake 1346.58 ml Output 2330 ml Net -983.42 ml Principal Problem: CHF exacerbation ([facility]) HPI: Hospital day: 7 ICU day: 3d 12h History is obtained from chart review and patient's family History is limited due to patient wearing BiPAP and in respiratory distress Obie Sims is a 69-year-old male admitted 08/31/2024 with past medical history of diabetes mellitus, hypertension, hyperlipidemia atrial fibrillation on warfarin, pulmonary hypertension, bioprosthetic aortic valve, COPD, SHEELA. Echocardiogram in February 2024 showed EF of 40 to 45% with bioprosthetic aortic valve Patient was admitted to hospitalist service on 08/31 as a transfer due to BRITTANY and hyperkalemia. He was seen by cardiology and nephrology and was being diuresed. On 09/03, rapid response was called as patient had worsening hypoxia concern for wide-complex arrhythmia start (noticed to be frequent PVCs on telemetry review). Patient was hypoxic in 60s initially requiring increased oxygen via nasal cannula and then placement of BiPAP at FiO2 of 100%. Patient's original status CODE STATUS is DNR however on clarification by hospitalist he was okay with intubation. This was discussed with patient's family and they were in agreement with intubation. He was transferred to [facility] ICU and emergently intubated with rapid sequence induction. Lab workup showed pH of 7.25, pCO2 74, creatinine up from 1.8-2.15, blood sugar 442, proBNP 28,000, troponin 115. Patient was receiving Lasix drip set 5 mg/h and it was increased to 10 mg/h and additional dose of IV Diuril given. On arrival to ICU, postintubation patient was very hypoxic requiring high FiO2 and PEEP with elevated peak and plateau pressure. His hypoxia improved after ventilator adjustments and decreasing the tidal volume. Assessment and Plan: Acute respiratory failure with hypoxia needing intubation, mechanical ventilation Possible CHF exacerbation versus aspiration event BRITTANY on CKD 3B, suspected cardiorenal Thrombocytopenia, mild, monitor Acute on chronic systolic and right-sided heart failure with reduced ejection fraction Ground-level fall, generalized weakness and rib fractures Pneumonia, HCAP versus aspiration Coagulopathy, supratherapeutic INR, improving Oral thrush Hypernatremia Diabetes mellitus type 2, uncontrolled Hyperlipidemia Hypertension Chronic atrial fibrillation status post ablation, on warfarin Pulmonary hypertension Status post aortic valve replacement with bioprosthetic valve COPD Obstructive sleep apnea Gout History of CVA Peripheral arterial disease PLAN: Neurology/Sedation: No acute issues Cardiovascular: Keep MAP >65 mmHg or as needed Entresto on hold in setting of BRITTANY Lasix as needed. Cardiology following Continue aspirin, statin Holding Coreg due to low blood pressure Respiratory: Extubated on 09/06/2024. Gastrointestinal: Speech to evaluate swallow. Renal/: Monitor UOP and Cr Avoid nephrotoxins Nephrology following appreciate recommendation. Fluid and Electrolytes: Monitor and replace. D5W for hypernatremia Infectious Disease: F/u cultures, continue antibiotics Continue vancomycin and Zosyn Blood cultures: No growth till date Urine cultures negative Endocrine: BG goal of <180 Uncontrolled, starting Lantus 25 units daily and sliding scale Hematology/Oncology: Transfuse for Hb <7, Platelet <10K Musculoskeletal: Continue pain management PT/OT consultation Code Status: DNR, okay to intubate, discussed with family Discussed clinical course and updated family at bedside, all questions answered Feeding: Speech to evaluate swallow. Agitation: None Sedation: None Thromboprophylaxis: Warfarin subtherapeutic. Extubation: 09/06/2024 Restraints: Yes Foleys: Yes Lines and Tubes: PIV x 3, PICC line Activity: As tolerated, as directed by PT/oT Glycemic control: BG goal of <180 GI prophylaxis: IV pepcid Disposition: Continue ICU Status Critical Care time spent in evaluation and management of a critically ill or injured patient is 75 minutes, such that the critical illness or injury acutely impairs one or more organ system: (Neurology, cardiovascular, respiratory, renal, ID, endocrine) such that there is a high probability of imminent or life-threatening deterioration in the patient's condition needing immediate attention or presence of critical care physician near bedside for the above time . Complex decisions were made to manipulate and support multiple organ systems. The time listed is exclusive of any procedures which may have been performed. Critical care time includes time spent at bedside performing history and physical exam, time spent researching patient prior to interaction with patient, time spent discussing findings and treatment plan with patient and/or family, time spent discussing patient with consultants and colleagues, time spent reviewing pertinent laboratory and radiographic evaluations, time spent re-evaluating patient, or time spent discussing patient with nursing staff. All of the patient's and his family's questions were answered, and the plan of care going forward was outlined to them. KEYONA MILLER MD 09/07/2024 8:47 AM Past Medical Hx: As below Past surgical Hx: As below Home Medications: As below Family History: As below Personal and social hx: As below Past Medical History: Diagnosis Date Abnormal ankle brachial index ([facility]) Acute on chronic heart failure, unspecified heart failure type ([facility]) Anxiety Aortic valve stenosis Arthritis Asthma, mild persistent ([facility]) 04/06/2021 Atrial fibrillation ([facility]) s/p PVI/[facility] 10/2015 Bilateral leg pain Carotid disease, bilateral ([facility]) CHF (congestive heart failure) ([facility]) Claudication ([facility]) COPD (chronic obstructive pulmonary disease) ([facility]) Coronary artery disease Diabetes mellitus, type II ([facility]) Edema 04/19/2018 2+ pitting History of blood transfusion Hyperlipidemia Hypertension LV dysfunction Non-pressure chronic ulcer of left calf limited to breakdown of skin ([facility]) 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 breakdown of skin ([facility]) Osteoarthritis PAD (peripheral artery disease) (CMS/HCC) Pneumonia [...] performed by Kilo Navarro MD at [facility] OR COLONOSCOPY N/A 01/27/2022 COLONOSCOPY WITH COLD SNARE POLYPECTOMY performed by Kilo Navarro MD at [facility] OR HIP ARTHROPLASTY Left KNEE ARTHROPLASTY Bilateral REPAIR ROTATOR CUFF W/ OR W/O ACROMIOPLASTY Left USE NEMO+CARDIOVERSION 03/24/2016 XA A-FIB ABLATION 10/23/2015 PVI/[facility] Family History Problem Relation Name Age of Onset TB Mother No current facility-administered medications on file prior to encounter. Current Outpatient Medications on File Prior to Encounter Medication Sig Dispense Refill albuterol sulfate HFA 108 (90 Base) MCG/ACT inhaler Inhale 2 puffs into the lungs every 4 (four) hours as needed. allopurinol 300 MG tablet Take 1 tablet (300 mg total) by mouth daily. atorvastatin 80 MG tablet Take 1 tablet (80 mg total) by mouth nightly at bedtime. carvedilol (COREG) 3.125 MG tablet Take 1 tablet (3.125 mg total) by mouth 2 (two) times daily. clotrimazole-betamethasone (LOTRISONE) cream 1 Application every 12 (twelve) hours. docusate sodium 100 MG capsule Take 1 capsule (100 mg total) by mouth as needed for Constipation. folic acid (FOLVITE) 1 MG tablet Take 1 tablet (1 mg total) by mouth daily. furosemide (LASIX) 80 MG tablet Take 1 tablet (80 mg total) by mouth daily. 30 tablet 0 glipiZIDE XL (GLUCOTROL XL) 5 MG [...] tablet (25 mg total) by mouth daily. nystatin (MYCOSTATIN) powder Apply topically 2 (two) times daily. Apply to groin, under abdominal fold 15 g 0 pantoprazole EC 40 MG tablet Take 1 tablet (40 mg total) by mouth daily. pregabalin (LYRICA) 150 MG capsule Take 1 capsule (150 mg total) by mouth 2 (two) times daily. sacubitril-valsartan (ENTRESTO) 24-26 MG tablet Take 1 tablet by mouth 2 (two) times daily. 60 tablet 11 Semaglutide (OZEMPIC, 1 MG/DOSE, SC) Inject into the skin once a week. sertraline 50 MG tablet Take 1 tablet (50 mg total) by mouth daily. traZODone (DESYREL) 150 MG tablet Take 2 tablets (300 mg total) by mouth nightly at bedtime. TRELEGY ELLIPTA 100-62.5-25 MCG/ACT AEROSOL POWDER, BREATH ACTIVATED Inhale 1 puff into the lungs daily. warfarin (COUMADIN) 4 MG tablet Take 1 tablet (4 mg total) by mouth daily. Monitor INR every 3-4 days and follow up closely with PCP (Patient taking differently: Take 0.5 tablets (2 mg total) by mouth daily. Monitor INR every 3-4 days and follow up closely with PCP) 30 tablet 0 Review of patient's allergies indicates: No Known Allergies Social History Socioeconomic History Marital status: Spouse name: Ema Number of children: 2 Years of education: Not on file Highest education level: Not on file Occupational History Employer: NOT EMPLOYED Tobacco Use Smoking status: Former Passive exposure: Past Smokeless tobacco: Former Types: Chew Vaping Use Vaping status: Never Used Substance and Sexual Activity Alcohol use: Yes Comment: 4 beers per week Drug use: No Sexual [...] Social History Narrative Not on file Social Drivers of Health Financial Resource Strain: Low Risk (08/31/2024) Overall Financial Resource Strain (CARDIA) Difficulty of Paying Living Expenses: Not very hard Food Insecurity: No Food Insecurity (08/31/2024) Hunger Vital Sign Worried About Running Out of Food in the Last Year: Never true Ran Out of Food in the Last Year: Never true Transportation Needs: No Transportation Needs (08/31/2024) PRAPARE - Transportation Lack of Transportation (Medical): No Lack of Transportation (Non-Medical): No Physical Activity: Not on file Stress: Patient Declined (02/16/2023) [employer] - Occupational Stress Questionnaire Feeling of Stress : Patient declined Social Connections: Patient Declined (02/16/2023) Social Connection and Isolation Panel [NHANES] Frequency of Communication with Friends and Family: Patient declined Frequency of Social Gatherings with Friends and Family: Patient declined Attends Zoroastrianism Services: Patient declined Active Member of Clubs or Organizations: Patient declined Attends Club or Organization Meetings: Patient declined Marital Status: Patient declined Recent Concern: Social Connections - Moderately Isolated (02/06/2023) Social Connection and Isolation Panel [NHANES] Frequency of Communication with Friends and Family: Twice a week Frequency of Social Gatherings with Friends and Family: Twice a week Attends Zoroastrianism Services: More than 4 times per year Active Member of Clubs or Organizations: No Attends Club or Organization Meetings: Never Marital Status: Intimate Partner Violence: Not At Risk (08/31/2024) Humiliation, Afraid, Rape, and Kick questionnaire Fear of Current or Ex-Partner: No Emotionally Abused: No Physically Abused: No Sexually Abused: No Housing Stability: Low Risk (08/31/2024) Housing Stability Vital Sign Unable to Pay for Housing in the Last Year: No Number of Times Moved in the Last Year: 0 Homeless in the Last Year: No Current inpatient medications: Current Facility-Administered Medications: acetaminophen (TYLENOL) tablet 650 mg, 650 mg, Oral, Q4H PRN, Keyona Miller MD acetylcysteine 10 % (MUCOMYST) inhalation solution 200 mg, 200 mg, Nebulization, 2 times daily, Jean Lindsay MD, 200 mg at 09/07/24 0755 albuterol (PROVENTIL) (2.5 MG/3ML) 0.083% nebulizer solution 2.5 mg, 2.5 mg, Nebulization, Q2H PRN,Juan Francisco Rubi MD, 2.5 mg at 09/04/24 0724 allopurinol (ZYLOPRIM) tablet 200 mg, 200 mg, Oral, Daily, Keyona Miller MD aspirin chewable tablet 81 mg, 81 mg, Oral, Daily, Keyona Miller MD atorvastatin (LIPITOR) tablet 80 mg, 80 mg, Oral, Nightly at bedtime, Keyona Miller MD clotrimazole-betamethasone (LOTRISONE) cream, , Topical, Q12H, Zaria Thacker, [facility], Given at 09/07/24 0846 dexmedetomidine (PRECEDEX) 400 mcg in NS 100 mL IV infusion, 0.1-1.4 mcg/kg/hr, Intravenous, Continuous, Keyona Miller MD, Paused at 09/06/24 1128 dextrose (GLUTOSE) 40 % oral gel 37.5-75 g, 15-30 g of dextrose, Oral, PRN, Keyona Miller MD dextrose 10 % bolus infusion 125-250 mL, 125-250 mL, Intravenous, PRN, Keyona Miller MD, Stopped at 09/06/24 1640 [COMPLETED] dextrose 5 % bolus infusion 500 mL, 500 mL, Intravenous, Once, Stopped at 09/06/24 2239FOLLOWED BY dextrose 5 % infusion, , Intravenous, Continuous, Bernadine Valdez [facility], Last Rate:100 mL/hr at 09/07/24 0445, New Bag at 09/07/24 0445 [DISCONTINUED] fentaNYL (SUBLIMAZE) injection 50 mcg, 50 mcg, Intravenous, Once AND [DISCONTINUED] fentaNYL (SUBLIMAZE) 10 mcg/mL infusion, 10-100 mcg/hr, Intravenous, Continuous, Paused at 09/04/24 1525 AND fentaNYL (SUBLIMAZE) injection 25 mcg, 25 mcg, Intravenous, Q10 Min PRN, Juan Francisco Rubi MD folic acid (FOLVITE) tablet 1 mg, 1 mg, Oral, Daily, Rajcompa Miller MD glucagon injection 1 mg, 1 mg, Intramuscular, Once PRN, Keyona Miller MD HYDROcodone-acetaminophen (NORCO) 5-325 MG tablet 1 tablet, 1 tablet, Oral, Q4H PRN, Keyona Miller MD hydrocortisone sodium succinate (Solu-CORTEF) 50 mg in sodium chloride bacteriostatic 0.9 % 1 mL injection, 50 mg, Intravenous, 2 times per day, Keyona Miller MD, 50 mg at 09/07/24 0845 HYDROmorphone (DILAUDID) injection 0.2 mg, 0.2 mg, Intravenous, Q2H PRN, ALONDRA Christianson,0.2 mg at 09/04/24 1620 hydrOXYzine (ATARAX) tablet 50 mg, 50 mg, Per NG Tube, TID PRN, Juan Francisco Rubi MD insulin glargine (LANTUS) injection 40 Units, 40 Units, Subcutaneous, Nightly at bedtime, Keyona Miller MD, 40 Units at 09/05/24 2039 insulin lispro (HUMALOG/ADMELOG) injection 0-15 Units, 0-15 Units, Subcutaneous, Q4H, Keyona Abarca MD, 4 Units at 09/06/24 2349 ipratropium-albuterol (DUONEB) 0.5-2.5 (3) MG/3ML nebulizer solution 3 mL, 3 mL, Nebulization, Q4H,Juan Francisco Rubi MD, 3 mL at 09/07/24 0755 naLOXone (NARCAN) injection 0.4 mg, 0.4 mg, Intravenous, PRN, ALONDRA Christianson nystatin (MYCOSTATIN) [id number] UNIT/ML suspension 5 mL, 5 mL, Oral, 4x Daily, Jean Lindsay MD, 5mL at 09/06/24 1338 nystatin (MYCOSTATIN) powder, , Topical, BID, ALONDRA Christianson, Given at 09/07/24 0846 ondansetron (ZOFRAN) injection 4 mg, 4 mg, Intravenous, Q8H PRN, Zaria Thacker, ACNP- piperacillin-tazobactam (ZOSYN) 3.375 g in sodium chloride 0.9 % 50 mL IVPB, 3.375 g, Intravenous, Q8H, Jean Lindsay MD, Last Rate: 12.5 mL/hr at 09/07/24 0550, 3.375 g at 09/07/24 0550 polyethylene glycol (GLYCOLAX) packet 17 g, 17 g, Oral, Daily PRN, Keyona Miller MD pregabalin (LYRICA) capsule 150 mg, 150 mg, Oral, BID, Keyona Miller MD senna-docusate (SENOKOT-S) 8.6-50 MG tablet 1 tablet, 1 tablet, Oral, BID, eKyona Miller MD sertraline (ZOLOFT) tablet 50 mg, 50 mg, Oral, Daily, Keyona Miller MD traZODone (DESYREL) tablet 300 mg, 300 mg, Per NG Tube, Nightly at bedtime, Juan Francisco Rubi MD, 300 mg at 09/05/242036 vancomycin 750 mg in NS 250 mL IVPB, 750 mg, Intravenous, Q24H, Keyona Miller MD, Stopped at 09/06/24 1741 Pharmacy to dose vancomycin, , , Once AND vancomycin pharmacy to dose placeholder, , Intravenous, See Admin Instructions, Jean Lindsay MD Pharmacy to dose warfarin (COUMADIN), , , Once AND warfarin (COUMADIN) pharmacy to dose placeholder, , Oral, See Admin Instructions, Jean Lindsay MD Subjective: 12 point review of systems was completed and negative except findings reported above in ICU timeline and HPI. Objective: Body mass index is 31.6 kg/m??. Current vital signs Blood pressure (!) 155/88, pulse 93, temperature 98.6 ??F (37 ??C), temperature source Tympanic, resp. rate 22, height 1.676 m (5' 6 ), weight 88.8 kg (195 lb 12.3 oz), SpO2 99%. Vitals: 09/07/24 0800 BP: (!) 155/88 Pulse: 93 Resp: 22 Temp: 98.6 ??F (37 ??C) SpO2: 99% 24 hour BP and temperature range @[id number]@ Temp (24hrs), Av.3 ??F (36.8 ??C), Min:97.2 ??F (36.2 ??C), Max:99.4 ??F (37.4 ??C) Input/Output 09/06 0700 - 09/07 0659 In: 6668.6 [I.V.:2318.8] Out: 2455 [Urine:2455] Intake/Output Summary (Last 24 hours) at 09/07/2024 0847 Last data filed at 09/07/2024 0800 Gross per 24 hour Intake 1346.58 ml Output 2330 ml Net -983.42 ml Physical exam: Gen: Patient alert and oriented Neuro: Moving all extremities, no deficit appreciated Head: Atraumatic and normocephalic Eyes: Pupils equal round and reactive, no jaundice ENT: Moist mucous membrane Neck: JVD + Cardiac: Irregular, S1, S2, no added sounds Pulm: Bilateral air entry, bibasilar crackles Abdomen: Soft and nontender, bowel sounds present Skin: No rash or erythema Extremities: Trace pedal edema Data Review: Recent Labs 09/05/24 0400 09/06/24 0430 09/07/24 0342 WBC 19.33* 13.94* 13.95* HGB 12.3 11.7* 11.5* HCT 39.5 38.6 39.2 MCV 91.9 94.4 96.3 PLT 137* 112* 109* RBC 4.30* 4.09* 4.07* Recent Labs Lab 09/05/24 0400 09/05/24 1110 09/06/24 0430 09/06/24 1249 09/06/24 2030 09/07/24 0342 NA 152* < > 153* 158* 157* 157* K 3.2* < > 3.8 3.5 4.1 3.8 CL 114 < > 120* 124* 125* 124* CO2 30.7 < > 31.6 32.0 30.4 30.4 AGAP 7.3 < > 1.4* 2.0 1.6* 2.6 BUN 64* < > 68* 63* 59* 52* CR 2.44* < > 2.16* 1.97* 1.83* 1.78* GLU 191* < > 189* 70* 85 146* CA 9.2 < > 9.8 8.7 8.8 8.8 TP 7.7 -- 7.3 -- -- 7.4 ALB 2.4* -- 2.3* -- -- 2.4* TBIL 1.3* -- 1.1* -- -- 1.2* ALKP 119* -- 109 -- -- 110 AST 19 -- 29 -- -- 29 ALT 21 -- 28 -- -- 27 < > = values in this interval not displayed. Coagulation: Recent Labs 09/05/24 0850 09/06/24 0830 09/07/24 0342 INR 2.2* 1.7* 1.4* Troponins: Recent Labs Lab 09/03/24202809/04/24 0415 09/04/24 0800 TROP 115* 145* 136* ABG: Lab Results Component Value Date BASEEXCESS 2.0 09/03/2024 VBG: No components found for: PHMIXEDVEN , [id number] , EYQ3FOEPDE , KJO4VRRKL , VB0NOLW Lactic acid: No components found for: LACTATE EKG: All telemetry strips reviewed, no evidence of sustained ventricular tachycardia Results for orders placed or performed during the hospital encounter of 08/31/24 ECG 12 lead Narrative [address] [address] Test Date: 2024-08-31 Pat Name: OBIE SIMS Department: 1 [facility] Gender: Male Dot Etcher Apprentice: Ti : 1955 Requested By: ZARIA THACKER Order Number: [id number] Sage MD: Domingo Parks Measurements Intervals [place] Rate: 80 P: TN: 0 QRS: -32 QRSD: 147 T: 128 QT: 379 QTc: 439 Interpretive Statements ATRIAL FIBRILLATION LEFT AXIS DEVIATION [QRS AXIS < -30] LEFT BUNDLE BRANCH BLOCK [120+ ms QRS DURATION, 80+ ms Q/S IN V1/V2, 85+ ms R IN I/aVL/V5/V6] ROOM SUPERVISOR ECG 12 lead Narrative [facility] [address] [place] [address] Test Date: 2024-09-03 Pat Name: OBIE SIMS Department: 1 Room: [facility] Gender: Male Dot Etcher Apprentice: Hans Santiago : 1955 Requested By: NIKOLAS JIMÉNEZ Order Number: [id number] Reading MD: Armand Lentz Measurements Intervals [place] Rate: 101 P: TN: 0 QRS: -46 QRSD: 146 T: 132 QT: 360 QTc: 467 Interpretive Statements ATRIAL FIBRILLATION WITH RAPID VENTRICULAR RESPONSE WITH ABERRANT CONDUCTION OR VENTRICULAR PREMATURE COMPLEXES LEFT AXIS DEVIATION [QRS AXIS < -30] LEFT BUNDLE BRANCH BLOCK [120+ ms QRS DURATION, 80+ ms Q/S IN V1/V2, 85+ ms R IN I/aVL/V5/V6] ROOM SUPERVISOR Microbiology: No results found. However, due to the size of the patient record, not all encounters were searched.Please check Results Review for a complete set of results. Results for orders placed or performed during the hospital encounter of 08/31/24 (from the past week) CULTURE, BACTERIA BLOOD Collection Time: 09/03/24 12:23 PM Specimen: BLOOD Result Value Ref Range SPEC DESCRIPTION BLOOD SPECIAL REQUESTS NO SPECIAL REQUEST CULTURE RESULT NO GROWTH 3 DAYS CULTURE, BACTERIA BLOOD X2 Collection Time: 08/31/24 10:34 AM Specimen: BLOOD Result Value Ref Range SPEC DESCRIPTION BLOOD SPECIAL REQUESTS NO SPECIAL REQUEST CULTURE RESULT NO GROWTH 5 DAYS and Results for orders placed or performed during the hospital encounter of 08/31/24 (from the past week) CULTURE, URINE Collection Time: 09/01/24 11:10 AM Specimen: URINE, CLEAN CATCH Result Value Ref Range SPEC DESCRIPTION URINE CLEAN CATCH SPECIAL REQUESTS NO SPECIAL REQUEST CULTURE RESULT NO GROWTH (< OR = 1,000 CFU/ML) Microbiology Results (last 14 days) Procedure Component Value Units Date/Time CULTURE, RESPIRATORY W/ GRAM STAIN [[id number]] Collected: 09/05/24 0740 Order Status: Completed Lab Status: Preliminary result Updated: 09/07/24 0659 Specimen: TRACHEAL ASPIRATE SPEC DESCRIPTION TRACHEAL ASPIRATE SPECIAL REQUESTS NO SPECIAL REQUEST GRAM STAIN RESULT <10 EPITHELIAL CELLS PER LPF GRAM STAIN RESULT >25 NEUTROPHILS PER LPF GRAM STAIN RESULT NO ORGANISMS SEEN CULTURE RESULT NO GROWTH 2 DAYS MRSA PCR nares Screening [[id number]] Order Status: No result Lab Status: No result Specimen: NASAL Gastric PH [[id number]] Order Status: No result Lab Status: No result Specimen: GASTRIC FLUID CULTURE, BACTERIA BLOOD [[id number]] Collected: 09/03/24 1223 Order Status: Completed Lab Status: Preliminary result Updated: 09/06/24 0002 Specimen: BLOOD SPEC DESCRIPTION BLOOD SPECIAL REQUESTS NO SPECIAL REQUEST CULTURE RESULT NO GROWTH 3 DAYS CULTURE, URINE [[id number]] Collected: 09/01/24 1110 Order Status: Completed Lab Status: Final result Updated: 09/03/24 0835 Specimen: URINE, CLEAN CATCH SPEC DESCRIPTION URINE CLEAN CATCH SPECIAL REQUESTS NO SPECIAL REQUEST CULTURE RESULT NO GROWTH (< OR = 1,000 CFU/ML) CULTURE, BACTERIA BLOOD X2 [[id number]] Collected: 08/31/24 1034 Order Status: Completed Lab Status: Final result Updated: 09/06/24 0011 Specimen: BLOOD SPEC DESCRIPTION BLOOD SPECIAL REQUESTS NO SPECIAL REQUEST CULTURE RESULT NO GROWTH 5 DAYS Radiology: Imaging: ECG 12 lead Result Date: 09/03/[address] [address] Test Date: 2024-09-03 Pat Name: OBIE SIMS Department: 1 Room: [facility] Gender: Male Dot Etcher Apprentice: Hans Santiago : 1955 Requested By: NIKOLAS JIMÉNEZ Order Number: [id number] Reading MD: Measurements Intervals [place] Rate: 101 P: TN: 0 QRS: -46 QRSD: 146 T: 132 QT: 360 QTc: 467 Interpretive Statements ATRIAL FIBRILLATION WITH RAPID VENTRICULAR RESPONSE WITH ABERRANT CONDUCTION OR VENTRICULAR PREMATURE COMPLEXES LEFT AXIS DEVIATION [QRS AXIS < - 30] LEFT BUNDLE BRANCH BLOCK [120+ ms QRS DURATION, 80+ ms Q/S IN V1/V2, 85+ ms R IN I/aVL/V5/V6] XR CHEST PORTABLE Result Date: 09/03/2024 [facility] [address] [place], [place] [address] Procedure(s):XR CHEST PORTABLE Date of service: 09/03/2024 9:32 [...] right shoulder. Postfusion changes lower cervical spine. IMPRESSION: Persistent bilateral alveolar and interstitial opacification concerning for pneumonia or pulmonary edema. Slight improvement as compared to August 31. Referred By: PROVIDER NON-STAFF Interpreted By: Klever Edwards MD, 09/03/2024 9:54 AM XR SPEECH SWALLOW SJS ONLY Result Date: 09/01/2024 [facility] [address] [place], [place] [address] Date: 09/01/2024 4:54 PM Exam: Video assisted fluoroscopic swallow study. Comparison: None. Technique:Exam was performed in conjunction with speech pathology. Patient was placed in an upright lateral position. Pulse fluoroscopy time of 2.5 minutes. Radiation dose was K AR = 15.7mGy. The patient was evaluated swallowing honey barium consistency via spoon, straw, and open cup, nectar barium consistency via spoon,straw, and open cup, pudding barium consistency via spoon, and thin barium consistency via cup and straw. The patient was evaluated swallowing a cookie coated in barium followed by nectar barium consistency via open cup. The patient was evaluated swallowing a cookie coated in barium followed by honey barium consistency via spoon. Neutral, bolus hold, and chin tuck maneuvers were performed. History: Dysphasia. Findings: Honey barium consistency via spoon demonstrated premature spillage to the kaitlynn lecula before initiation of the swallow. No evidence [...] of laryngeal penetration. No evidence of aspiration. [place] barium consistency via spoon demonstrated premature spillage to the vallecula before initiation of swallow. No evidence of laryngeal penetration. No evidence of aspiration. [place] barium consistency via straw demonstrated premature spillage [...] This is consistent with impending silent aspiration. [place] barium consistency via open cup demonstrated premature spillage to the vallecula and piriform sinuses before initiation of swallow. No evidence of laryngeal penetration. No evidence of aspiration. [place] barium consistency via straw with a bolus hold maneuver demonstrated premature spillage to the vallecula and piriform sinuses before initiation of swallow. Laryngeal penetration without ejection was visualized as seen in series 14 image 14 through 35. A cough reflex wasnot elicited. This is consistent with impending silent [...] with impending silent aspiration. Thin barium consistency viastraw with a chin tuck maneuver demonstrated premature [...] initiation of swallow with a cookie coated inbarium. Premature spillage to the vallecula before initiation of the swallow with honey barium consistency via spoon. No evidence of laryngeal penetration or aspiration with a cookie coated in bariumor honey barium consistency via spoon. Impression: 1. [...] Munoz on 09/01/2024 4:53 PM Ordered By: JEAN LINDSAY Interpreted By: KEHSA Munoz, 09/01/2024 4:53 PM ECG 12 lead Result Date: 09/01/2024 [place] [address] [place] [address] Test Date: 2024-08-31 Pat Name: OBIE SIMS Department: 1 Room: [facility] Gender: Male Dot Etcher Apprentice: Ti : 1955 Requested By: ZARIA THACKER Order Number: [id number] Sage MD: Domingo Parks Measurements Intervals [place] Rate: 80 P: TN: 0 QRS: -32 QRSD: 147 T: 128 QT: 379 QTc: 439 Interpretive StatementsATRIAL FIBRILLATION LEFT AXIS DEVIATION [QRS AXIS < -30] LEFT BUNDLE BRANCH BLOCK [120+ ms QRS DURATION, 80+ ms Q/S IN V1/V2, 85+ ms R IN I/aVL/V5/V6] Electronically signed by Domingo Parks 09-01-2024 14:20:01 [employer]AX ROOM SUPERVISOR [employer] Result Date: 09/01/[address] [address] EXAMINATION: Renal ultrasound EXAM DATE/TIME: 08/31/2024 10:03 PM REASON FOR EXAM: BRITTANY COMPARISON: CT abdomen pelvis 11/17/2023, renal ultrasound 08/06/2023 TECHNIQUE: Transabdominal ultrasoundevaluation of the bilateral kidneys and bladder was performed for analysis of grayscale and color Doppler imaging characteristics. FINDINGS: The right kidney measures 11.6 cm in length, overall suboptimally visualized. The left kidney is not seen. No right-sided hydronephrosis. No definite right-sided focal renal lesion. Echogenicity of the right kidney is within normal limits. The urinary bladder is decompressed with Oneill catheter. IMPRESSION: 1. No right-sided hydronephrosis. 2. Nonvisualized left kidney and suboptimally visualized right kidney. 3. Decompressed urinary bladder with Oneill catheter. Referred By: PROVIDER NON-STAFF Interpreted By: Ever Love MD, 09/01/2024 2:04 AM USE ECHOCARDIOGRAM W CON Result Date: 08/31/2024 Echocardiography Report Pat.Name: OBIE SIMS Pat.ID: [id number] St.Date: 08/31/2024 Refer.: [id number] NON-STAFF PROVIDER EWDPROJossie EWDPROV Exam Time: 1:13:00 PM Study Type:ECHO W/CONTRAST COMPLETEHeight: 168 cm Weight: 110 kg BSA: 2.17 m2 Age: 12 1955,69Y Sex: M BP: 117/53 HR: 84 bpm Sonogrphr: Jose Cruz Tejada [facility] Pat. Stat.:Inpatient Room: 622 CPT - 4: C8929 Reason for Study:Congestiveheart failure Procedures: 2D, M-mode, Doppler, Color Flow, Definity was used to enhance endocardialdefinition. Race: W ++++++++++++++++++++++++++++++++++++ SUMMARY: ++++++++++++++++++++++++++++++++++ ++ Technically difficult study. The left ventricular size is mildly enlarged. The calculated ejection fraction is 43%. The right ventricular size is moderately to severely enlarged. Right ventricularsystolic function is severely depressed. Right ventricular systolic pressure is 36 mmHg + estimatedRAP. No evidence of pericardial effusion. Moderate aortic valve stenosis. Mild tricuspid regurgitation. ++++++++++++++++++++++++++++++++++++ FINDINGS: ++++++++++++++++++++++++++++++++++++ LV: The left ventricular size is mildly enlarged. The left ventricular systolic function is mild to moderately d epressed. The calculated ejection fraction is 43%. No concentric left ventricular hypertrophy. Leftventricular diastolic function is not reliably assessed. RV: [...] Other: Technically difficult exam due to body habitus.AV: The aortic valve is trileaflet. Moderate aortic [...] evidence of tricuspid valve stenosis. ++++++++++++++++++++++++++++++++++++ MEASUREMENTS: ++++++++++++++++++++++++++++ ++++++++ DOPPLER LVOT LVOTpkPG 4 mmHg LVOTmnPG 2 mmHg LVOTpkVel 96.4 cm/s (70- 110)+ LVOT SV 65 ml LVOT TVI 17.3 [...] 36 mmHg TV pkVel 300 cm/s (30-70)* LatE' Lat e 6.85 cm/s Lat E/E' Lat E/e 16.9 Med E' Med e 3.92 cm/s Med E/E' Med E/e 29.6 Aortic ValveAortic Valve Ar 0.49 Aortic Valve Ve 0.32 AV DI Value 0.3 EMILE (VTI) Index Value 0.49 LV Mass 2D Value 223 g LV Mass Xggha0Q Value 103 g/m2 RA Volume Atrial Schaffer [...] Signature> 08/31/2024 11:02 PM Brit Gonzáles M.D. XR CHEST PORTABLE Result Date: 08/31/[address] [address] Examination: XR CHEST PORTABLE Exam time: 08/31/2024 10:12 AM Clinical history: Cough Comparison: 07/31/2024 Technique: AP chest Findings: Shallow inspiration with patient slightly rotated. Post midline sternotomy changes with prosthetic valve. Borderline cardiomegaly similar to previous study. Persistent pulmonaryvascular congestion and interstitial edema very similar to the previous study. No new airspace consolidation. No pleural effusion. IMPRESSION: 1) Borderline cardiomegaly with persistent pulmonary vascular congestion and interstitial edema very similar to previous study. Ordered By: JEAN LINDSAY Interpreted By: Rigoberto Calderon MD, 08/31/2024 3:04 PM KEYONA MILLER MD 09/07/2024 8:47 AM ROOM SUPERVISOR ROOM SUPERVISOR * Ludy Morrell MD - 09/07/2024 7:35 AM CST [facility] Nephrology Progress Note Obie Sims is a 69-year-old male patient. HPI 69-year-old gentleman with past medical history significant for CKD stage III, atrial fibrillation,heart failure with reduced ejection fraction, coronary disease, aortic stenosis status post bioprosthetic aortic valve placement, pulmonary hypertension, COPD, obstructive sleep apnea, dyslipidemia, diabetes mellitus type 2, stroke, anxiety, hypertension, restless leg syndrome who presented due to BRITTANY and hyperkalemia. Patient had a fall on 08/18/2024, initially declined treatment but ultimately presented to outside ED 2 days ago with rib pain and knee pain. He also reported shortness of breath and lower extremity swelling. His creatinine was found to be 2 with potassium 5.9. Patient transferred to [facility] for BRITTANY and hyperkalemia management. Nephrology consulted to manage kidney disease Subjective off Levophed 2. Extubated 3. good urine output Review Of Systems Unable to obtain due to patient's condition Current Facility-Administered Medications Medication Dose Route Frequency Provider Last Rate Last Admin acetaminophen (TYLENOL) tablet 650 mg 650 mg Oral Q4H PRN Keyona Miller MD acetylcysteine 10 % (MUCOMYST) inhalation solution 200 mg 200 mg Nebulization 2 times daily Cheryl Lindsay MD 200 mg at 09/06/24 2119 albuterol (PROVENTIL) (2.5 MG/3ML) 0.083% nebulizer solution 2.5 mg 2.5 mg Nebulization Q2H PRN Juan Francisco Rubi MD 2.5 mg at 09/04/24 0724 allopurinol (ZYLOPRIM) tablet 200 mg 200 mg Oral Daily Keyona Miller MD aspirin chewable tablet 81 mg 81 mg Oral Daily Keyona Miller MD atorvastatin (LIPITOR) tablet 80 mg 80 mg Oral Nightly at bedtime Keyona Miller MD clotrimazole-betamethasone (LOTRISONE) cream Topical Q12H KERVIN Christianson-MIAN Given at 09/06/24 2213 dexmedetomidine (PRECEDEX) 400 mcg in NS 100 mL IV infusion 0.1-1.4 mcg/kg/hr Intravenous Continuous Keyona Miller MD Paused at 09/06/24 1128 dextrose (GLUTOSE) 40 % oral gel 37.5-75 g 15-30 g of dextrose Oral PRN Keyona Miller MD dextrose 10 % bolus infusion 125-250 mL 125-250 mL Intravenous PRN Keyona Miller MD Stopped at 09/06/24 1640 dextrose 5 % infusion Intravenous Continuous Olutrichar Perezode, MBBCH 100 mL/hr at 09/07/24 0445 New Bag at 09/07/24 0445 fentaNYL (SUBLIMAZE) injection 25 mcg 25 mcg Intravenous Q10 Min PRN Juan Francisco Rubi MD folic acid (FOLVITE) tablet 1 mg 1 mg Oral Daily Keyona Miller MD glucagon injection 1 mg 1 mg Intramuscular Once PRN Keyona Miller MD HYDROcodone-acetaminophen (NORCO) 5-325 MG tablet 1 tablet 1 tablet Oral Q4H PRN Keyona Miller MD hydrocortisone sodium succinate (Solu-CORTEF) 50 mg in sodium chloride bacteriostatic 0.9 % 1 mL injection 50 mg Intravenous 2 times per day Keyona Miller MD 50 mg at 09/06/24 2209 HYDROmorphone (DILAUDID) injection 0.2 mg 0.2 mg Intravenous Q2H PRN ALONDRA Christianson 0.2 mg at 09/04/24 1620 hydrOXYzine (ATARAX) tablet 50 mg 50 mg Per NG Tube TID PRN Juan Francisco Rubi MD insulin glargine (LANTUS) injection 40 Units 40 Units Subcutaneous Nightly at bedtime Keyona Abarca MD 40 Units at 09/05/24 2039 insulin lispro (HUMALOG/ADMELOG) injection 0-15 Units 0-15 Units Subcutaneous Q4H Keyona Miller MD 4 Units at 09/06/24 2349 ipratropium-albuterol (DUONEB) 0.5-2.5 (3) MG/3ML nebulizer solution 3 mL 3 mL Nebulization Q4H Juan Francisco Rubi MD 3 mL at 09/07/24 0521 naLOXone (NARCAN) injection 0.4 mg 0.4 mg Intravenous PRN ALONDRA Christianson nystatin (MYCOSTATIN) [id number] UNIT/ML suspension 5 mL 5 mL Oral 4x Daily Jean Lindsay MD 5 mL at 09/06/24 1338 nystatin (MYCOSTATIN) powder Topical BID ALONDRA Christianson Given at 09/06/24 2213 ondansetron (ZOFRAN) injection 4 mg 4 mg Intravenous Q8H PRN Zaria Thacker, ACNP-BC piperacillin-tazobactam (ZOSYN) 3.375 g in sodium chloride 0.9 % 50 mL IVPB 3.375 g Intravenous [id number] Lindsay MD 12.5 mL/hr at 09/07/24 0550 3.375 g at 09/07/24 0550 polyethylene glycol (GLYCOLAX) packet 17 g 17 g Oral Daily PRN Keyona Miller MD pregabalin (LYRICA) capsule 150 mg 150 mg Oral BID Keyona Miller MD senna-docusate (SENOKOT-S) 8.6-50 MG tablet 1 tablet 1 tablet Oral BID Keyona Miller MD sertraline (ZOLOFT) tablet 50 mg 50 mg Oral Daily Keyona Miller MD traZODone (DESYREL) tablet 300 mg 300 mg Per NG Tube Nightly at bedtime Juan Francisco Rubi MD 300 mg at 09/05/242036 vancomycin 750 mg in NS 250 mL IVPB 750 mg Intravenous Q24H Keyona Miller MD Stopped at 09/06/24 1741 vancomycin pharmacy to dose placeholder Intravenous See Admin Instructions Jean Lindsay MD warfarin (COUMADIN) pharmacy to dose placeholder Oral See Admin Instructions Jean Lindsay MD Review of patient's allergies indicates: No Known Allergies Principal Problem: CHF exacerbation ([facility]) SNOMED CT(R): ACUTE EXACERBATION OF CHRONIC CONGESTIVE HEART FAILURE Filed Vitals: 09/07/24 0400 09/07/24 0500 09/07/24 0600 09/07/24 0700 BP: 127/71 138/80 (!) 154/101 (!) 138/98 Pulse: 94 96 98 (!) 101 Resp: Temp: TempSrc: SpO2: 94% 95% 96% 95% Weight: Height: Last 3 Recorded Weights 09/02/24 0500 09/03/24 0423 09/04/24 1100 Weight: 100.2 kg (220 lb 14.4 oz) 95.3 kg (210 lb 1.6 oz) 88.8 kg (195 lb 12.3 oz) Intake/Output Summary (Last 24 hours) at 09/07/2024 0735 Last data filed at 09/07/2024 0558 Gross per 24 hour Intake 1346.58 ml Output 2455 ml Net -1108.42 ml Physical Exam: -GENERAL: Intubated and sedated -EYES: Extraocular movements intact. -ENT: Neck supple, Septum is midline. DRY oral mucosa. -LUNG: Mildly coarse bilaterally with expiratory wheezing on the right. -CVS: Regular rate, irregularly irregular rhythm, S1 and S2 normal, No murmurs. -ABDOMEN: Soft, nondistended, Nontender, Bowel sounds observed. -EXT: No bilateral lower Ext edema. Gauze wraps around bilateral lower legs. -NEURO: Alert, awake, oriented x3, No gross neuro deficit -SKIN: Skin color, texture, turgor normal. No rashes or lesions LABs Recent Labs Lab 09/01/24 0819 09/02/24 0030 09/02/24 0741 09/02/24 2325 09/03/24 0506 09/03/24 2029 09/04/24 0415 09/05/24 0400 09/05/24 1110 09/05/24 2000 09/06/24 0430 09/06/24 1249 09/06/24 2030 09/07/24 0342 NA 141 143 < > 145 < > 144 148* 152* 150* 154* 153* 158* 157* 157* K 4.9 4.2 < > 4.1 < > 4.2 3.5 3.2* 2.8* 4.2 3.8 3.5 4.1 3.8 CL 110 112 < > 112 < > 110 111 114 113 121* 120* 124* 125* 124* CO2 21.2 27.0 < > 29.6 < > 30.9 31.3 30.7 25.6 30.9 31.6 32.0 30.4 30.4 AGAP 9.8 4.0 < > 3.4 < > 3.1 5.7 7.3 11.4* 2.1 1.4* 2.0 1.6* 2.6 BUN 70* 68* < > 56* < > 60* 64* 64* 53* 70* 68* 63* 59* 52* CR 2.28* 2.26* < > 1.90* < > 2.15* 2.29* 2.44* 1.92* 2.52* 2.16* 1.97* 1.83* 1.78* GLU 121* 282* < > 238* < > 442* 320* 191* 177* 230* 189* 70* 85 146* CA 9.7 9.6 < > 9.3 < > 9.7 9.2 9.2 6.3* 9.2 9.8 8.7 8.8 8.8 MAGNESIUM 2.5 -- -- -- -- 2.4 2.4 2.6 -- -- 2.8* -- -- 2.7* PHOS -- 3.6 -- 3.1 -- 4.1 4.1 2.8 -- -- 3.1 -- -- 3.4 < > = values in this interval not displayed. Recent Labs Lab 09/02/24 0741 09/03/24 0506 09/03/24202809/04/24 0415 09/05/24 0400 09/06/24 0430 09/07/24 0342 WBC 13.53* 13.49* 17.46* 14.31* 19.33* 13.94* 13.95* RBC 4.32* 4.17* 4.69 4.31* 4.30* 4.09* 4.07* HGB 12.5 11.9* 13.7 12.1 12.3 11.7* 11.5* HCT 40.1 39.1 44.3 40.6 39.5 38.6 39.2 MCV 92.8 93.8 94.5 94.2 91.9 94.4 96.3 MCH 28.9 28.5 29.2 28.1 28.6 28.6 28.3 MCHC 31.2* 30.4* 30.9* 29.8* 31.1* 30.3* 29.3* PLT 130* 111* 131* 138* 137* 112* 109* RDW 15.9* 16.1* 16.2* 15.9* 15.9* 16.1* 16.0* MPV 12.9* 11.9* 13.2* 11.7* 12.9* 12.6* 12.5* Assessment/Plan: 69-year-old gentleman with past medical history significant for CKD stage III, atrial fibrillation,heart failure with reduced ejection fraction, coronary disease, aortic stenosis status post bioprosthetic aortic valve placement, pulmonary hypertension, COPD, obstructive sleep apnea, dyslipidemia, diabetes mellitus type 2, stroke, anxiety, hypertension, restless leg syndrome who presented due to BRITTANY and hyperkalemia. Patient had a fall on 08/18/2024, initially declined treatment but ultimately presented to outside ED 2 days ago with rib pain and knee pain. He also reported shortness of breath and lower extremity swelling. His creatinine was found to be 2 with potassium 5.9. Patient transferred to [facility] for BRITTANY and hyperkalemia management. BRITTANY on CKD stage III -Baseline creatinine 1.3-1.5. Patient also follows with Dr. Beltran -At outside hospital creatinine was 2.0, patient received fluids and creatinine increased to 2.8. This is likely related to hemodynamics/fluid overload. -Renal ultrasound showed suboptimal visualization of right kidney. No right sided hydronephrosis. No increase echogenicity. Right kidney 11.6 cm. Left kidney was not seen. -CPK normal, urinalysis 3+ blood and a mild protein WBCs 27 RBCs greater than 182, urine sodium of 88. BRITTANY serology negative -Initial chest x-ray showed pulmonary vascular congestion and interstitial edema -Status post aggressive IV diuresis -Creatinine currently 1.78 -Currently Lasix on hold as patient developing hypernatremia -Strict I's/O, avoid nephrotoxins 2. HTN. -off Levophed, defer to ICU team -Continue to avoid STEVIE/ARB 3. Anemia of chronic disease. Hemoglobin stable 4. Electrolytes. -Hypernatremia. Free water deficit~5.4 L, increase free water flushes . Also on D5 water at 100 mL/h. Monitor sodium closely 5. Renal osteodystrophy. Calcium and phosphorus levels are okay 6. Disposition stable Thank you for allowing me to participate in the care of this patient. We will continue to follow this patient with you. Please contact us with further questions. LUDY MORRELL MD 09/07/2024 ROOM SUPERVISOR * Les Cárdenas RN - 09/07/2024 2:44 AM CST Problem: Pain control/comfort Goal: Promote pain control/comfort Outcome: Progressing Problem: Skin integrity, Impaired-wound Goal: Absence of new skin breakdown Outcome: Progressing Problem: Reduced risk for falls/injury Goal: Reduced Risk for Falls/Injury Outcome: Progressing Problem: Infection - Risk of, Urinary Catheter-Associated Urinary Tract Infection Goal: Absence of Urinary Catheter Associated Urinary Tract (UTI) Infection Signs and Symptoms Outcome: Progressing Problem: Infection - Risk of, Central Venous Catheter-Associated Bloodstream Infection Goal: Absence of Central Venous Catheter Associated Bloodstream Infection Signs and Symptoms Outcome: Progressing ROOM SUPERVISOR * Fiorella Archibald RD - 09/06/2024 1:03 PM CST CLINICAL DIETITIAN NOTE RD previously consulted by physician for tube feed management. Note patient has been extubated within the last 24 hours and access has been removed. RD will continue to monitor ability for PO diet advancement and provide nutrition intervention as appropriate. Patient will be reassessed per protocoland RD to remain available for consult. FIORELLA ARCHIBALD RD, LDN ROOM SUPERVISOR * Nati Cole - 09/06/2024 11:20 AM CST Vancomycin Pharmacokinetic Progress Note Day 3 of therapy Obie Sims is a 69-year-old male for which pharmacy has been consulted to dose vancomycin for Pneumonia. Other antibiotics ordered include zosyn. Allergies: Review of patient's allergies indicates: No Known Allergies Height: 1.676 m (5' 6 ) Weight: 88.8 kg (195 lb 12.3 oz) Body mass index is 31.6 kg/m??. Temp (24 hr max): Temp Av.5 ??F (36.9 ??C) Min: 97.2 ??F (36.2 ??C) Max: 99.8 ??F (37.7 ??C) Today's labs and vitals: Lab Results Component Value Date/Time WBC 13.94 (H) 09/06/2024 04:30 AM WBC 19.33 (H) 09/05/2024 04:00 AM WBC 14.31 (H) 09/04/2024 04:15 AM WBC 17.46 (H) 09/03/2024 08:29 PM WBC 13.49 (H) 09/03/2024 05:06 AM Lab Results Component Value Date/Time CR 2.16 (H) 09/06/2024 04:30 AM CR 2.52 (H) 09/05/2024 08:00 PM CR 1.92 (H) 09/05/2024 11:10 AM CR 2.44 (H) 09/05/2024 04:00 AM CR 2.29 (H) 09/04/2024 04:15 AM CrCl = estimated creatinine clearance is 33.2 mL/min (A) (by C-G formula based on SCr of 2.16 mg/dL(H)). Intake/Output Summary (Last 24 hours) at 09/06/2024 1120 Last data filed at 09/06/2024 1000 Gross per 24 hour Intake 5462 ml Output 2235 ml Net 3227 ml Pertinent Cultures: Date Drawn Site Organism Pertinent Sensitivity 08/31 BCx NGTD 09/01 UCx NGTD 09/03 BCx NGTD 09/05 Tracheal aspirate Cx NGTD Levels: Date Time Level AUC Dose Comments 09/05 1110 14.5 445 1750 x1, 1000 x1 22 hr lvl 09/06 1249 19.5 527 1000 mg 21 hr lvl Assessment: Obie Sims is a 69-year-old male who is currently receiving vancomycin. AUC goal is 400 - 600 Current AUC level is Therapeutic Renal function is Improving. Scr 2.52 ->2.16 -> 1.97 Plan: Antibiotic Plan: 750 mg q25h x2 (est AUC 497) Next level due: 09/08 @1000 Pharmacy will continue to follow cultures, clinical status, and appropriateness of therapy. Thank you for the consult. Pharmacy Consult per Dr. Neftali COLE, Physician General Internal Medicine Phone: [phone] 09/06/2024 11:20 AM Cosigned by Misael Oh, PharmD at 09/06/2024 3:38 PM WAX ROOM SUPERVISOR ROOM SUPERVISOR ROOM SUPERVISOR ROOM SUPERVISOR * Nati Cole - 09/06/2024 11:15 AM CST Warfarin - Pharmacy Dosing Service Note Obie Sims is a 69-year-old male for which pharmacy has been consulted to dose warfarin for A.fib. Goal INR is 2-3. Warfarin Order Set Activated: Yes Warfarin Start Date: continuation from home Past Medical History: Diagnosis Date Abnormal ankle brachial index (STELLA) Acute on chronic heart failure, unspecified heart failure type ([facility]) Anxiety Aortic valve stenosis Arthritis Asthma, mild persistent ([facility]) 04/06/2021 Atrial fibrillation ([facility]) s/p PVI/[facility] 10/2015 Bilateral leg pain Carotid disease, bilateral ([facility]) CHF (congestive heart failure) ([facility]) Claudication ([facility]) COPD (chronic obstructive pulmonary disease) ([facility]) Coronary artery disease Diabetes mellitus, type II ([facility]) Edema 04/19/2018 2+ pitting History of blood transfusion Hyperlipidemia Hypertension LV dysfunction Non-pressure chronic ulcer of left calf limited to breakdown of skin ([facility]) 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 breakdown of skin ([facility]) Osteoarthritis PAD (peripheral artery disease) ([facility]) Pneumonia Restless leg syndrome S/P aortic valve replacement with bioprosthetic valve 2013 SOB (shortness of breath) Stroke ([facility]) Varicose veins of bilateral lower extremities with other complications Weight gain with edema Home warfarin dose: warfarin 2 mg po daily per med rec Bridging agent: none Vitamin K use: No; (if yes, indicate date, dose, and route) Diet: PO Recent Labs Lab 09/04/24 0415 09/05/24 0400 09/06/24 0430 HGB 12.1 12.3 11.7* HCT 40.6 39.5 38.6 PLT 138* 137* 112* AST 16 19 29 ALT 21 21 28 ALKP 118* 119* 109 ALB 2.5* 2.4* 2.3* Date INR Dose Received 08/28 5.4 per [facility] paperwork - 08/29 - - 08/30 2.7 2 mg at OL 08/31 1.8 - 09/01 1.6 2 mg 09/02 1.9 2 mg 09/03 2.6 hold 09/04 3.7 hold 09/05 2.2 2 mg 09/06 1.7 1.5 mg Drug interactions: Potential to increase INR: - Potential to decrease INR: - Potential to increase the risk of bleeding: aspirin, sertraline Warfarin Sensitivity: moderate, based on the following risk factors: thrombocytopenia, end state renal disease or Scr > 2.2, and age 66-79. Hgb/Hct today are stable INR today subtherapeutic The plan is to give 1.5 mg tonight and plan for 1.5 mg tomorrow, recheck an INR in the morning to assist with subsequent dosing. Pharmacy will continue to monitor labs and notes daily, adjusting the dose as clinically appropriate. Thank you for the consult. Pharmacy to dose per Dr. Neftali COLE, Physician General Internal Medicine Phone number: [phone] 09/06/2024 11:15 AM Cosigned by Misael Oh, PharmD at 09/06/2024 2:57 PM WAX ROOM SUPERVISOR ROOM SUPERVISOR ROOM SUPERVISOR * Ludy Morrell MD - 09/06/2024 7:34 AM CST [facility] Nephrology Progress Note Obie Sims is a 69-year-old male patient. HPI 69-year-old gentleman with past medical history significant for CKD stage III, atrial fibrillation,heart failure with reduced ejection fraction, coronary disease, aortic stenosis status post bioprosthetic aortic valve placement, pulmonary hypertension, COPD, obstructive sleep apnea, dyslipidemia, diabetes mellitus type 2, stroke, anxiety, hypertension, restless leg syndrome who presented due to BRITTANY and hyperkalemia. Patient had a fall on 08/18/2024, initially declined treatment but ultimately presented to outside ED 2 days ago with rib pain and knee pain. He also reported shortness of breath and lower extremity swelling. His creatinine was found to be 2 with potassium 5.9. Patient transferred to [facility] for BRITTANY and hyperkalemia management. Nephrology consulted to manage kidney disease Subjective off Levophed 2. intubated, on mechanical ventilation 3. good urine output, net -14 L since admission Review Of Systems Unable to obtain due to patient's condition Current Facility-Administered Medications Medication Dose Route Frequency Provider Last Rate Last Admin acetaminophen (TYLENOL) tablet 650 mg 650 mg Tube Q4H PRN Juan Francisco Rubi MD acetylcysteine 10 % (MUCOMYST) inhalation solution 200 mg 200 mg Nebulization 2 times daily Cheryl Lindsay MD 200 mg at 09/05/242032 albuterol (PROVENTIL) (2.5 MG/3ML) 0.083% nebulizer solution 2.5 mg 2.5 mg Nebulization Q2H PRN Juan Francisco Rubi MD 2.5 mg at 09/04/24 0724 allopurinol (ZYLOPRIM) tablet 200 mg 200 mg Tube Daily Juan Francisco Rubi MD 200 mg at 09/05/24 0833 aspirin chewable tablet 81 mg 81 mg Tube Daily Juan Francisco Rubi MD 81 mg at 09/05/2433 atorvastatin (LIPITOR) tablet 80 mg 80 mg Tube Nightly at bedtime Juan Francisco Rubi MD 80 mg at 09/05/242036 budesonide (PULMICORT) nebulizer solution 0.25 mg 0.25 mg Nebulization 2 times daily Juan Francisco Rubi MD 0.25 mg at 09/05/242032 clotrimazole-betamethasone (LOTRISONE) cream Topical Q12H KERVIN Christianson-MIAN Given at 09/05/242037 dexmedetomidine (PRECEDEX) 400 mcg in NS 100 mL IV infusion 0.1-1.4 mcg/kg/hr Intravenous Continuous Keyona Miller MD 19.06 mL/hr at 09/06/24 0026 0.8 mcg/kg/hr at 09/06/24 0026 docusate (COLACE) 50 MG/5ML liquid 100 mg 100 mg Tube BID Keyona Miller MD 100 mg at 09/05/242037 And senna 8.8 MG/5ML syrup 8.8 mg 5 mL Tube BID Keyona Miller MD 8.8 mg at 09/05/242037 famotidine (PF) (PEPCID) injection 10 mg 10 mg Intravenous Daily Keyona Miller MD Or famotidine (PEPCID) tablet 10 mg 10 mg Tube Daily Keyona Miller MD fentaNYL (SUBLIMAZE) 10 mcg/mL infusion 10-100 mcg/hr Intravenous Continuous Juan Francisco Rubi MD Paused at 09/04/24 1525 And fentaNYL (SUBLIMAZE) injection 25 mcg 25 mcg Intravenous Q10 Min PRN Juan Francisco Rubi MD folic acid (FOLVITE) tablet 1 mg 1 mg Tube Daily Juan Francisco Rubi MD 1 mg at 09/05/24 0835 genteal tears (ARTIFICIAL TEARS) 0.1-0.2-0.3 % ophthalmic solution 1 drop 1 drop Both Eyes Q4H Juan Francisco Rubi MD 1 drop at 09/06/24 0025 HYDROcodone-acetaminophen (NORCO) 5-325 MG tablet 1 tablet 1 tablet Tube Q4H PRN Juan Francisco Rubi MD hydrocortisone sodium succinate (Solu-CORTEF) 50 mg in sodium chloride bacteriostatic 0.9 % 1 mL injection 50 mg Intravenous 2 times per day Keyona Miller MD 50 mg at 09/05/242036 HYDROmorphone (DILAUDID) injection 0.2 mg 0.2 mg Intravenous Q2H PRN ALONDRA Christianson 0.2 mg at 09/04/24 1620 hydrOXYzine (ATARAX) tablet 50 mg 50 mg Per NG Tube TID PRN Juan Francisco Rubi MD insulin glargine (LANTUS) injection 40 Units 40 Units Subcutaneous Nightly at bedtime Keyona Abarca MD 40 Units at 09/05/242038 insulin lispro (HUMALOG/ADMELOG) injection 0-15 Units 0-15 Units Subcutaneous Q4H Keyona Miller MD 4 Units at 09/06/24 0458 ipratropium-albuterol (DUONEB) 0.5-2.5 (3) MG/3ML nebulizer solution 3 mL 3 mL Nebulization Q4H Juan Francisco Rubi MD 3 mL at 09/06/24 0254 naLOXone (NARCAN) injection 0.4 mg 0.4 mg Intravenous PRN KERVIN Christianson-MIAN nystatin (MYCOSTATIN) 343061 UNIT/ML suspension 5 mL 5 mL Oral 4x Daily Jean Lindsay MD 5 mL at 09/05/242037 nystatin (MYCOSTATIN) powder Topical BID ALONDRA Christianson Given at 09/05/242037 ondansetron (ZOFRAN) injection 4 mg 4 mg Intravenous Q8H PRN KERVIN Christianson-MIAN piperacillin-tazobactam (ZOSYN) 3.375 g in sodium chloride 0.9 % 50 mL IVPB 3.375 g Intravenous D0DUpeoiumsaturnino Lindsay MD 12.5 mL/hr at 09/06/24 0458 3.375 g at 09/06/24 0458 polyethylene glycol (GLYCOLAX) packet 17 g 17 g Tube Daily PRN Juan Francisco Rubi MD pregabalin (LYRICA) capsule 150 mg 150 mg Tube BID Juan Francisco Rubi MD 150 mg at 09/05/248 propofol (DIPRIVAN) infusion 0-50 mcg/kg/min Intravenous Continuous Juan Francisco Rubi MD Paused at 09/04/24 1729 protein supplement (PROSOURCE) packet 1 packet 1 packet Per OG tube Daily Keyona Miller MD 1 packet at 09/05/24 1259 sertraline (ZOLOFT) tablet 50 mg 50 mg Tube Daily Juan Francisco Rubi MD 50 mg at 09/05/24 0834 TF peptide based high protein, low fat w/MCT (VITAL HP) liquid 55 mL/hr Per OG tube Continuous Keyona Miller MD 55 mL/hr at 09/06/24 0400 55 mL/hr at 09/06/24 0400 traZODone (DESYREL) tablet 300 mg 300 mg Per NG Tube Nightly at bedtime Juan Francisco Rubi MD 300 mg at 09/05/242036 vancomycin pharmacy to dose placeholder Intravenous See Admin Instructions Jean Lindsay MD warfarin (COUMADIN) pharmacy to dose placeholder Oral See Admin Instructions Jean Lindsay MD Review of patient's allergies indicates: No Known Allergies Principal Problem: CHF exacerbation ([facility]) SNOMED CT(R): ACUTE EXACERBATION OF CHRONIC CONGESTIVE HEART FAILURE Filed Vitals: 09/06/24 0256 09/06/24 0300 09/06/24 0302 09/06/24 0700 BP: (!) 155/76 Pulse: 78 72 Resp: 16 16 Temp: TempSrc: SpO2: 98% 97% 96% 98% Weight: Height: Last 3 Recorded Weights 09/02/24 0500 09/03/24 0423 09/04/24 1100 Weight: 100.2 kg (220 lb 14.4 oz) 95.3 kg (210 lb 1.6 oz) 88.8 kg (195 lb 12.3 oz) Intake/Output Summary (Last 24 hours) at 09/06/2024 0734 Last data filed at 09/06/2024 0000 Gross per 24 hour Intake 190 ml Output 1335 ml Net -1145 ml Physical Exam: -GENERAL: Intubated and sedated -EYES: Extraocular movements intact. -ENT: Neck supple, Septum is midline. DRY oral mucosa. -LUNG: Mildly coarse bilaterally with expiratory wheezing on the right. -CVS: Regular rate, irregularly irregular rhythm, S1 and S2 normal, No murmurs. -ABDOMEN: Soft, nondistended, Nontender, Bowel sounds observed. -EXT: No bilateral lower Ext edema. Gauze wraps around bilateral lower legs. -NEURO: Alert, awake, oriented x3, No gross neuro deficit -SKIN: Skin color, texture, turgor normal. No rashes or lesions LABs Recent Labs Lab 09/01/24 0819 09/02/24 0030 09/02/24 0741 09/02/24 2325 09/03/24 0506 09/03/24 2029 09/04/24 0415 09/05/24 0400 09/05/24 1110 09/05/24 2000 09/06/24 0430 NA 141 143 < > 145 145 144 148* 152* 150* 154* 153* K 4.9 4.2 < > 4.1 4.1 4.2 3.5 3.2* 2.8* 4.2 3.8 CL 110 112 < > 112 112 110 111 114 113 121* 120* CO2 21.2 27.0 < > 29.6 28.3 30.9 31.3 30.7 25.6 30.9 31.6 AGAP 9.8 4.0 < > 3.4 4.7 3.1 5.7 7.3 11.4* 2.1 1.4* BUN 70* 68* < > 56* 56* 60* 64* 64* 53* 70* 68* CR 2.28* 2.26* < > 1.90* 1.81* 2.15* 2.29* 2.44* 1.92* 2.52* 2.16* GLU 121* 282* < > 238* 218* 442* 320* 191* 177* 230* 189* CA 9.7 9.6 < > 9.3 9.8 9.7 9.2 9.2 6.3* 9.2 9.8 MAGNESIUM 2.5 -- -- -- -- 2.4 2.4 2.6 -- -- 2.8* PHOS -- 3.6 -- 3.1 -- 4.1 4.1 2.8 -- -- 3.1 < > = values in this interval not displayed. Recent Labs Lab 09/01/24 0819 09/02/24 0741 09/03/24 0506 09/03/24202809/04/24 0415 09/05/24 0400 09/06/24 0430 WBC 11.52* 13.53* 13.49* 17.46* 14.31* 19.33* 13.94* RBC 4.03* 4.32* 4.17* 4.69 4.31* 4.30* 4.09* HGB 11.6* 12.5 11.9* 13.7 12.1 12.3 11.7* HCT 36.8* 40.1 39.1 44.3 40.6 39.5 38.6 MCV 91.3 92.8 93.8 94.5 94.2 91.9 94.4 MCH 28.8 28.9 28.5 29.2 28.1 28.6 28.6 MCHC 31.5* 31.2* 30.4* 30.9* 29.8* 31.1* 30.3* PLT 100* 130* 111* 131* 138* 137* 112* RDW 16.0* 15.9* 16.1* 16.2* 15.9* 15.9* 16.1* MPV 12.7* 12.9* 11.9* 13.2* 11.7* 12.9* 12.6* Assessment/Plan: 69-year-old gentleman with past medical history significant for CKD stage III, atrial fibrillation,heart failure with reduced ejection fraction, coronary disease, aortic stenosis status post bioprosthetic aortic valve placement, pulmonary hypertension, COPD, obstructive sleep apnea, dyslipidemia, diabetes mellitus type 2, stroke, anxiety, hypertension, restless leg syndrome who presented due to BRITTANY and hyperkalemia. Patient had a fall on 08/18/2024, initially declined treatment but ultimately presented to outside ED 2 days ago with rib pain and knee pain. He also reported shortness of breath and lower extremity swelling. His creatinine was found to be 2 with potassium 5.9. Patient transferred to [facility] for BRITTANY and hyperkalemia management. BRITTANY on CKD stage III -Baseline creatinine 1.3-1.5. Patient also follows with Dr. Beltran -At outside hospital creatinine was 2.0, patient received fluids and creatinine increased to 2.8. This is likely related to hemodynamics/fluid overload. -Renal ultrasound showed suboptimal visualization of right kidney. No right sided hydronephrosis. No increase echogenicity. Right kidney 11.6 cm. Left kidney was not seen. -CPK normal, urinalysis 3+ blood and a mild protein WBCs 27 RBCs greater than 182, urine sodium of 88. BRITTANY serology negative -Initial chest x-ray showed pulmonary vascular congestion and interstitial edema -Initially diuresed with 80 of Lasix IVP daily and decreased to torsemide 20 mg daily on 09/02/2024 as patient did a significant response to diuretics (-9.5 L over 48 hours). He did begin to appear mildly intravascularly dry with a sodium of 145 and elevated BUN to creatinine ratio. Will need to continue to monitor diuretic dosage closely. -Creatinine currently 2.16 -Net -14 L since admission -Currently Lasix on hold as patient developing hypernatremia -Strict I's/O, avoid nephrotoxins 2. HTN. -off Levophed, defer to ICU team -Continue to avoid STEVIE/ARB 3. Anemia of chronic disease. Hemoglobin stable 4. Electrolytes. -Potassium 3.8 -Hyponatremia resolved and now developing hypernatremia. Continue to monitor closely. Lasix on hold 5. Renal osteodystrophy. Calcium and phosphorus levels are okay 6. Disposition stable Thank you for allowing me to participate in the care of this patient. We will continue to follow this patient with you. Please contact us with further questions. LUDY MORRELL MD 09/06/2024 ROOM SUPERVISOR * Keyona Miller MD - 09/06/2024 4:45 AM CST Images from the original note were not included. Critical Care Medicine [facility], [place], [place] Symplr (Doc Halo) 15/03: RENEE Loar Engine Oiler On-call Progress note Reason for ICU admission: Acute respiratory failure with hypoxia Subjective Patient extubated to nasal cannula this morning. Tolerating well. Input/Output 09/04 2300 - 09/05 2259 In: 500 [I.V.:360] Out: 1635 [Urine:1635] Intake/Output Summary (Last 24 hours) at 09/06/2024 0445 Last data filed at 09/05/2024 1600 Gross per 24 hour Intake 500 ml Output 910 ml Net -410 ml Principal Problem: CHF exacerbation (CMS/HCC HHS/HCC) HPI: Hospital day: 6 ICU day: 2d 8h History is obtained from chart review and patient's family History is limited due to patient wearing BiPAP and in respiratory distress Obie Sims is a 69-year-old male admitted 08/31/2024 with past medical history of diabetes mellitus, hypertension, hyperlipidemia atrial fibrillation on warfarin, pulmonary hypertension, bioprosthetic aortic valve, COPD, SHEELA. Echocardiogram in February 2024 showed EF of 40 to 45% with bioprosthetic aortic valve Patient was admitted to hospitalist service on 08/31 as a transfer due to BRITTANY and hyperkalemia. He was seen by cardiology and nephrology and was being diuresed. On 09/03, rapid response was called as patient had worsening hypoxia concern for wide-complex arrhythmia start (noticed to be frequent PVCs on telemetry review). Patient was hypoxic in 60s initially requiring increased oxygen via nasal cannula and then placement of BiPAP at FiO2 of 100%. Patient's original status CODE STATUS is DNR however on clarification by hospitalist he was okay with intubation. This was discussed with patient's family and they were in agreement with intubation. He was transferred to [facility] ICU and emergently intubated with rapid sequence induction. Lab workup showed pH of 7.25, pCO2 74, creatinine up from 1.8-2.15, blood sugar 442, proBNP 28,000, troponin 115. Patient was receiving Lasix drip set 5 mg/h and it was increased to 10 mg/h and additional dose of IV Diuril given. On arrival to ICU, postintubation patient was very hypoxic requiring high FiO2 and PEEP with elevated peak and plateau pressure. His hypoxia improved after ventilator adjustments and decreasing the tidal volume. Assessment and Plan: Acute respiratory failure with hypoxia needing intubation, mechanical ventilation Possible CHF exacerbation versus aspiration event BRITTANY on CKD 3B, suspected cardiorenal Thrombocytopenia, mild, monitor Acute on chronic systolic and right-sided heart failure with reduced ejection fraction Ground-level fall, generalized weakness and rib fractures Pneumonia, HCAP versus aspiration Coagulopathy, supratherapeutic INR, improving Oral thrush Diabetes mellitus type 2, uncontrolled Hyperlipidemia Hypertension Chronic atrial fibrillation status post ablation, on warfarin Pulmonary hypertension Status post aortic valve replacement with bioprosthetic valve COPD Obstructive sleep apnea Gout History of CVA Peripheral arterial disease PLAN: Neurology/Sedation: No acute issues Cardiovascular: Keep MAP >65 mmHg or as needed Entresto on hold in setting of BRITTANY Lasix as needed. Cardiology following Continue aspirin, statin Holding Coreg due to low blood pressure Respiratory: Extubated on 09/06/2024. Gastrointestinal: Speech to evaluate swallow. Renal/: Monitor UOP and Cr Avoid nephrotoxins Nephrology following appreciate recommendation. Fluid and Electrolytes: Monitor and replace Infectious Disease: F/u cultures, continue antibiotics Continue vancomycin and Zosyn Blood cultures: No growth till date Urine cultures negative Endocrine: BG goal of <180 Uncontrolled, starting Lantus 25 units daily and sliding scale Hematology/Oncology: Transfuse for Hb <7, Platelet <10K Musculoskeletal: Continue pain management PT/OT consultation Code Status: DNR, okay to intubate, discussed with family Discussed clinical course and updated family at bedside, all questions answered Feeding: Tube feeds Agitation: None Sedation: None Thromboprophylaxis: Warfarin subtherapeutic. Extubation: 09/06/2024 Restraints: Yes Foleys: Yes Lines and Tubes: PIV x 3, PICC line Activity: As tolerated, as directed by PT/oT Glycemic control: BG goal of <180 GI prophylaxis: IV pepcid Disposition: Continue ICU Status Critical Care time spent in evaluation and management of a critically ill or injured patient is 75 minutes, such that the critical illness or injury acutely impairs one or more organ system: (Neurology, cardiovascular, respiratory, renal, ID, endocrine) such that there is a high probability of imminent or life-threatening deterioration in the patient's condition needing immediate attention or presence of critical care physician near bedside for the above time . Complex decisions were made to manipulate and support multiple organ systems. The time listed is exclusive of any procedures which may have been performed. Critical care time includes time spent at bedside performing history and physical exam, time spent researching patient prior to interaction with patient, time spent discussing findings and treatment plan with patient and/or family, time spent discussing patient with consultants and colleagues, time spent reviewing pertinent laboratory and radiographic evaluations, time spent re-evaluating patient, or time spent discussing patient with nursing staff. All of the patient's and his family's questions were answered, and the plan of care going forward was outlined to them. KEYONA MILLER MD 09/06/2024 4:45 AM Past Medical Hx: As below Past surgical Hx: As below Home Medications: As below Family History: As below Personal and social hx: As below Past Medical History: Diagnosis Date Abnormal ankle brachial index (STELLA) Acute on chronic heart failure, unspecified heart failure type ([facility] [facility] Anxiety Aortic valve stenosis Arthritis Asthma, mild persistent ([facility]) 04/06/2021 Atrial fibrillation ([facility]) s/p PVI/[facility] 10/2015 Bilateral leg pain Carotid disease, bilateral ([facility]) CHF (congestive heart failure) ([facility]) Claudication ([facility]) COPD (chronic obstructive pulmonary disease) ([facility]) Coronary artery disease Diabetes mellitus, type II ([facility]) Edema 04/19/2018 2+ pitting History of blood transfusion Hyperlipidemia Hypertension LV dysfunction Non-pressure chronic ulcer of left calf limited to breakdown of skin ([facility]) 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 breakdown of skin ([facility]) Osteoarthritis PAD (peripheral artery disease) ([facility]) Pneumonia Restless leg syndrome S/P aortic valve replacement with bioprosthetic valve 2013 SOB (shortness of breath) Stroke ([facility]) Varicose veins of bilateral lower extremities with other complications Weight gain with edema Past Surgical History: Procedure Laterality Date APPENDECTOMY CARDIAC VALVE REPLACEMENT 1999 CARDIAC VALVE REPLACEMENT 2013 CARDIOVERSION EXTERNAL 10/01/2015 CARDIOVERSION EXTERNAL 04/14/2012 COLONOSCOPY N/A 03/18/2021 COLONOSCOPY (Incomplete) performed by Kilo Navarro MD at [facility] OR COLONOSCOPY N/A 01/27/2022 COLONOSCOPY WITH COLD SNARE POLYPECTOMY performed by Kilo Navarro MD at [facility] OR HIP ARTHROPLASTY Left KNEE ARTHROPLASTY Bilateral REPAIR ROTATOR CUFF W/ OR W/O ACROMIOPLASTY Left USE NEMO+CARDIOVERSION 03/24/2016 XA A-FIB ABLATION 10/23/2015 PVI/[facility] Family History Problem Relation Name Age of Onset TB Mother No current facility-administered medications on file prior to encounter. Current Outpatient Medications on File Prior to Encounter Medication Sig Dispense Refill albuterol sulfate HFA 108 (90 Base) MCG/ACT inhaler Inhale 2 puffs into the lungs every 4 (four) hours as needed. allopurinol 300 MG tablet Take 1 tablet (300 mg total) by mouth daily. atorvastatin 80 MG tablet Take 1 tablet (80 mg total) by mouth nightly at bedtime. carvedilol (COREG) 3.125 MG tablet Take 1 tablet (3.125 mg total) by mouth 2 (two) times daily. clotrimazole-betamethasone (LOTRISONE) cream 1 Application every 12 (twelve) hours. docusate sodium 100 MG capsule Take 1 capsule (100 mg total) by mouth as needed for Constipation. folic acid (FOLVITE) 1 MG tablet Take 1 tablet (1 mg total) by mouth daily. furosemide (LASIX) 80 MG tablet Take 1 tablet (80 mg total) by mouth daily. 30 tablet 0 glipiZIDE XL (GLUCOTROL XL) 5 MG [...] tablet (25 mg total) by mouth daily. nystatin (MYCOSTATIN) powder Apply topically 2 (two) times daily. Apply to groin, under abdominal fold 15 g 0 pantoprazole EC 40 MG tablet Take 1 tablet (40 mg total) by mouth daily. pregabalin (LYRICA) 150 MG capsule Take 1 capsule (150 mg total) by mouth 2 (two) times daily. sacubitril-valsartan (ENTRESTO) 24-26 MG tablet Take 1 tablet by mouth 2 (two) times daily. 60 tablet 11 Semaglutide (OZEMPIC, 1 MG/DOSE, SC) Inject into the skin once a week. sertraline 50 MG tablet Take 1 tablet (50 mg total) by mouth daily. traZODone (DESYREL) 150 MG tablet Take 2 tablets (300 mg total) by mouth nightly at bedtime. TRELEGY ELLIPTA 100-62.5-25 MCG/ACT AEROSOL POWDER, BREATH ACTIVATED Inhale 1 puff into the lungs daily. warfarin (COUMADIN) 4 MG tablet Take 1 tablet (4 mg total) by mouth daily. Monitor INR every 3-4 days and follow up closely with PCP (Patient taking differently: Take 0.5 tablets (2 mg total) by mouth daily. Monitor INR every 3-4 days and follow up closely with PCP) 30 tablet 0 Review of patient's allergies indicates: No Known Allergies Social History Socioeconomic History Marital status: Spouse name: Ema Number of children: 2 Years of education: Not on file Highest education level: Not on file Occupational History Employer: NOT EMPLOYED Tobacco Use Smoking status: Former Passive exposure: Past Smokeless tobacco: Former Types: Chew Vaping Use Vaping status: Never Used Substance and Sexual Activity Alcohol use: Yes Comment: 4 beers per week Drug use: No Sexual [...] Social History Narrative Not on file Social Drivers of Health Financial Resource Strain: Low Risk (08/31/2024) Overall Financial Resource Strain (CARDIA) Difficulty of Paying Living Expenses: Not very hard Food Insecurity: No Food Insecurity (08/31/2024) Hunger Vital Sign Worried About Running Out of Food in the Last Year: Never true Ran Out of Food in the Last Year: Never true Transportation Needs: No Transportation Needs (08/31/2024) PRAPARE - Transportation Lack of Transportation (Medical): No Lack of Transportation (Non-Medical): No Physical Activity: Not on file Stress: Patient Declined (02/16/2023) [employer] [place] [employer] - Occupational Stress Questionnaire Feeling of Stress : Patient declined Social Connections: Patient Declined (02/16/2023) Social Connection and Isolation Panel [NHANES] Frequency of Communication with Friends and Family: Patient declined Frequency of Social Gatherings with Friends and Family: Patient declined Attends Zoroastrianism Services: Patient declined Active Member of Clubs or Organizations: Patient declined Attends Club or Organization Meetings: Patient declined Marital Status: Patient declined Recent Concern: Social Connections - Moderately Isolated (02/06/2023) Social Connection and Isolation Panel [NHANES] Frequency of Communication with Friends and Family: Twice a week Frequency of Social Gatherings with Friends and Family: Twice a week Attends Zoroastrianism Services: More than 4 times per year Active Member of Clubs or Organizations: No Attends Club or Organization Meetings: Never Marital Status: Intimate Partner Violence: Not At Risk (08/31/2024) Humiliation, Afraid, Rape, and Kick questionnaire Fear of Current or Ex-Partner: No Emotionally Abused: No Physically Abused: No Sexually Abused: No Housing Stability: Low Risk (08/31/2024) Housing Stability Vital Sign Unable to Pay for Housing in the Last Year: No Number of Times Moved in the Last Year: 0 Homeless in the Last Year: No Current inpatient medications: Current Facility-Administered Medications: acetaminophen (TYLENOL) tablet 650 mg, 650 mg, Tube, Q4H PRN, Juan Francisco Rubi MD acetylcysteine 10 % (MUCOMYST) inhalation solution 200 mg, 200 mg, Nebulization, 2 times daily, Jean Lindsay MD, 200 mg at 09/05/242032 albuterol (PROVENTIL) (2.5 MG/3ML) 0.083% nebulizer solution 2.5 mg, 2.5 mg, Nebulization, Q2H PRN,Juan Francisco Rubi MD, 2.5 mg at 09/04/24 0724 allopurinol (ZYLOPRIM) tablet 200 mg, 200 mg, Tube, Daily, Juan Francisco Rubi MD, 200 mg at 09/05/24 0833 aspirin chewable tablet 81 mg, 81 mg, Tube, Daily, Juan Francisco Rubi MD, 81 mg at 09/05/24 0833 atorvastatin (LIPITOR) tablet 80 mg, 80 mg, Tube, Nightly at bedtime, Juan Francisco Rubi MD, 80 mg at 09/05/242036 budesonide (PULMICORT) nebulizer solution 0.25 mg, 0.25 mg, Nebulization, 2 times daily, Juan Francisco Rubi MD, 0.25 mg at 09/05/242032 clotrimazole-betamethasone (LOTRISONE) cream, , Topical, Q12H, Zaria Thacker, [facility], Given at 09/05/242037 dexmedetomidine (PRECEDEX) 400 mcg in NS 100 mL IV infusion, 0.1-1.4 mcg/kg/hr, Intravenous, Continuous, Rajcompa Miller MD, Last Rate: 19.06 mL/hr at 09/06/24 0026, 0.8 mcg/kg/hr at 09/06/2425 docusate (COLACE) 50 MG/5ML liquid 100 mg, 100 mg, Tube, BID, 100 mg at 09/05/242037 AND senna8.8 MG/5ML syrup 8.8 mg, 5 mL, Tube, BID, Keyona Miller MD, 8.8 mg at 09/05/242037 famotidine (PF) (PEPCID) injection 10 mg, 10 mg, Intravenous, Daily OR famotidine (PEPCID) tablet 10 mg, 10 mg, Tube, Daily, Keyona Miller MD [DISCONTINUED] fentaNYL (SUBLIMAZE) injection 50 mcg, 50 mcg, Intravenous, Once AND fentaNYL (SUBLIMAZE) 10 mcg/mL infusion, 10-100 mcg/hr, Intravenous, Continuous, Paused at 09/04/241524 AND fentaNYL (SUBLIMAZE) injection 25 mcg, 25 mcg, Intravenous, Q10 Min PRN, Juan Francisco Rubi MD folic acid (FOLVITE) tablet 1 mg, 1 mg, Tube, Daily, Juan Francisco Rubi MD, 1 mg at 09/05/24834 genteal tears (ARTIFICIAL TEARS) 0.1-0.2-0.3 % ophthalmic solution 1 drop, 1 drop, Both Eyes, Q4H, Juan Francisco Rubi MD, 1 drop at 09/06/2424 HYDROcodone-acetaminophen (NORCO) 5-325 MG tablet 1 tablet, 1 tablet, Tube, Q4H PRN, Juan Francisco Rubi MD hydrocortisone sodium succinate (Solu-CORTEF) 50 mg in sodium chloride bacteriostatic 0.9 % 1 mL injection, 50 mg, Intravenous, 2 times per day, Keyona Miller MD, 50 mg at 09/05/242036 HYDROmorphone (DILAUDID) injection 0.2 mg, 0.2 mg, Intravenous, Q2H PRN, KERVIN Christianson-BC,0.2 mg at 09/04/24 1620 hydrOXYzine (ATARAX) tablet 50 mg, 50 mg, Per NG Tube, TID PRN, Juan Francisco Rubi MD insulin glargine (LANTUS) injection 40 Units, 40 Units, Subcutaneous, Nightly at bedtime, Keyona Miller MD, 40 Units at 09/05/242038 insulin lispro (HUMALOG/ADMELOG) injection 0-15 Units, 0-15 Units, Subcutaneous, Q4H, Keyona Abarca MD, 4 Units at 09/06/24 0025 ipratropium-albuterol (DUONEB) 0.5-2.5 (3) MG/3ML nebulizer solution 3 mL, 3 mL, Nebulization, Q4H,Juan Francisco Rubi MD, 3 mL at 09/06/24 0254 naLOXone (NARCAN) injection 0.4 mg, 0.4 mg, Intravenous, PRN, ALONDRA Christianson nystatin (MYCOSTATIN) 427967 UNIT/ML suspension 5 mL, 5 mL, Oral, 4x Daily, Jean Lindsay MD, 5mL at 09/05/242037 nystatin (MYCOSTATIN) powder, , Topical, BID, ALONDRA Christianson, Given at 09/05/242037 ondansetron (ZOFRAN) injection 4 mg, 4 mg, Intravenous, Q8H PRN, ALONDRA Christianson piperacillin-tazobactam (ZOSYN) 3.375 g in sodium chloride 0.9 % 50 mL IVPB, 3.375 g, Intravenous, Q8H, Jean Lindsay MD, Stopped at 09/06/24 010 polyethylene glycol (GLYCOLAX) packet 17 g, 17 g, Tube, Daily PRN, Juan Francisco Rubi MD pregabalin (LYRICA) capsule 150 mg, 150 mg, Tube, BID, Juan Francisco Rubi MD, 150 mg at 09/05/242037 propofol (DIPRIVAN) infusion, 0-50 mcg/kg/min, Intravenous, Continuous, Juan Francisco Rubi MD, Paused at09/04/24 1729 protein supplement (PROSOURCE) packet 1 packet, 1 packet, Per OG tube, Daily, Keyona Miller MD, 1 packet at 09/05/24 1259 sertraline (ZOLOFT) tablet 50 mg, 50 mg, Tube, Daily, Juan Francisco Rubi MD, 50 mg at 09/05/24 0834 TF peptide based high protein, low fat w/MCT (VITAL HP) liquid, 55 mL/hr, Per OG tube, Continuous, Keyona Miller MD, Last Rate: 55 mL/hr at 09/05/241999, 55 mL/hr at 09/05/241999 traZODone (DESYREL) tablet 300 mg, 300 mg, Per NG Tube, Nightly at bedtime, Juan Francisco Rubi MD, 300 mg at 09/05/242036 Pharmacy to dose vancomycin, , , Once AND vancomycin pharmacy to dose placeholder, , Intravenous, See Admin Instructions, Jean Lindsay MD Pharmacy to dose warfarin (COUMADIN), , , Once AND warfarin (COUMADIN) pharmacy to dose placeholder, , Oral, See Admin Instructions, Jean Lindsay MD Subjective: 12 point review of systems was completed and negative except findings reported above in ICU timeline and HPI. Objective: Body mass index is 31.6 kg/m??. Current vital signs Blood pressure 129/57, pulse 78, temperature 99.8 ??F (37.7 ??C), resp. rate 16, height 1.676 m (5'6 ), weight 88.8 kg (195 lb 12.3 oz), SpO2 96%. Vitals: 09/06/24 0302 BP: Pulse: Resp: Temp: SpO2: 96% 24 hour BP and temperature range @[id number]@ Temp (24hrs), Av.7 ??F (37.6 ??C), Min:99.7 ??F (37.6 ??C), Max:99.8 ??F (37.7 ??C) Input/Output 09/04 2300 - 09/05 2258 In: 500 [I.V.:360] Out: 1635 [Urine:1635] Intake/Output Summary (Last 24 hours) at 09/06/2024 0445 Last data filed at 09/05/2024 1600 Gross per 24 hour Intake 500 ml Output 910 ml Net -410 ml Physical exam: Gen: Patient alert and oriented Neuro: Moving all extremities, no deficit appreciated Head: Atraumatic and normocephalic Eyes: Pupils equal round and reactive, no jaundice ENT: Moist mucous membrane Neck: JVD + Cardiac: Irregular, S1, S2, no added sounds Pulm: Bilateral air entry, bibasilar crackles Abdomen: Soft and nontender, bowel sounds present Skin: No rash or erythema Extremities: Trace pedal edema Data Review: Recent Labs 09/03/24202809/04/2441409/05/24 0400 WBC 17.46* 14.31* 19.33* HGB 13.7 12.1 12.3 HCT 44.3 40.6 39.5 MCV 94.5 94.2 91.9 PLT 131* 138* 137* RBC 4.69 4.31* 4.30* Recent Labs Lab 09/03/24202809/04/245 09/05/24 0400 09/05/24 1110 09/05/241999 NA 144 148* 152* 150* 154* K 4.2 3.5 3.2* 2.8* 4.2 CL 110 111 114 113 121* CO2 30.9 31.3 30.7 25.6 30.9 AGAP 3.1 5.7 7.3 11.4* 2.1 BUN 60* 64* 64* 53* 70* CR 2.15* 2.29* 2.44* 1.92* 2.52* GLU 442* 320* 191* 177* 230* CA 9.7 9.2 9.2 6.3* 9.2 TP 9.0* 7.6 7.7 -- -- ALB 3.0* 2.5* 2.4* -- -- TBIL 1.4* 1.3* 1.3* -- -- ALKP 143* 118* 119* -- -- AST 21 16 19 -- -- ALT 24 21 21 -- -- Coagulation: Recent Labs 09/03/24 0506 09/04/2409/05/25 0850 INR 2.6* 3.7* 2.2* Troponins: Recent Labs Lab 09/03/24202809/04/24 0415 09/04/24 0800 TROP 115* 145* 136* ABG: Lab Results Component Value Date BASEEXCESS 2.0 09/03/2024 VBG: No components found for: PHMIXEDVEN , VA5CXHYRYC , LGA6SEJRPV , ZDK2IWQHF , XQ0YIKP Lactic acid: No components found for: LACTATE EKG: All telemetry strips reviewed, no evidence of sustained ventricular tachycardia Results for orders placed or performed during the hospital encounter of 08/31/24 ECG 12 [place] [id number] Test Date: 2024-08-31 Pat Name: OBIE SIMS Department: 1 Room: [facility] Gender: Male Dot Etcher Apprentice: Ti : 1955 Requested By: ZARIA THACKER Order Number: [id number] Reading MD: Domingo Parks Measurements Intervals [place] Rate: 80 P: TN: 0 QRS: -32 QRSD: 147 T: 128 QT: 379 QTc: 439 Interpretive Statements ATRIAL FIBRILLATION LEFT AXIS DEVIATION [QRS AXIS < -30] LEFT BUNDLE BRANCH BLOCK [120+ ms QRS DURATION, 80+ ms Q/S IN V1/V2, 85+ ms R IN I/aVL/V5/V6] ROOM SUPERVISOR ECG 12 lead Narrative [place] [address] [place] [address] Test Date: 2024-09-03 Pat Name: OBIE SIMS Department: 1 Room: [facility] Gender: Male Dot Etcher Apprentice: Hans Santiago : 1955 Requested By: NIKOLAS JIMÉNEZ Order Number: [id number] Reading MD: Armand Lentz Measurements Intervals [place] Rate: 101 P: TN: 0 QRS: -46 QRSD: 146 T: 132 QT: 360 QTc: 467 Interpretive Statements ATRIAL FIBRILLATION WITH RAPID VENTRICULAR RESPONSE WITH ABERRANT CONDUCTION OR VENTRICULAR PREMATURE COMPLEXES LEFT AXIS DEVIATION [QRS AXIS < -30] LEFT BUNDLE BRANCH BLOCK [120+ ms QRS DURATION, 80+ ms Q/S IN V1/V2, 85+ ms R IN I/aVL/V5/V6] ROOM SUPERVISOR Microbiology: No results found. However, due to the size of the patient record, not all encounters were searched.Please check Results Review for a complete set of results. Results for orders placed or performed during the hospital encounter of 08/31/24 (from the past week) CULTURE, BACTERIA BLOOD Collection Time: 09/03/24 12:23 PM Specimen: BLOOD Result Value Ref Range SPEC DESCRIPTION BLOOD SPECIAL REQUESTS NO SPECIAL REQUEST CULTURE RESULT NO GROWTH 3 DAYS CULTURE, BACTERIA BLOOD X2 Collection Time: 08/31/24 10:34 AM Specimen: BLOOD Result Value Ref Range SPEC DESCRIPTION BLOOD SPECIAL REQUESTS NO SPECIAL REQUEST CULTURE RESULT NO GROWTH 5 DAYS and Results for orders placed or performed during the hospital encounter of 08/31/24 (from the past week) CULTURE, URINE Collection Time: 09/01/24 11:10 AM Specimen: URINE, CLEAN CATCH Result Value Ref Range SPEC DESCRIPTION URINE CLEAN CATCH SPECIAL REQUESTS NO SPECIAL REQUEST CULTURE RESULT NO GROWTH (< OR = 1,000 CFU/ML) Microbiology Results (last 14 days) Procedure Component Value Units Date/Time CULTURE, RESPIRATORY W/ GRAM STAIN [[id number]] Collected: 09/05/24 0740 Order Status: Completed Lab Status: Preliminary result Updated: 09/05/24 0954 Specimen: TRACHEAL ASPIRATE SPEC DESCRIPTION TRACHEAL ASPIRATE SPECIAL REQUESTS NO SPECIAL REQUEST GRAM STAIN RESULT <10 EPITHELIAL CELLS PER LPF GRAM STAIN RESULT >25 NEUTROPHILS PER LPF GRAM STAIN RESULT NO ORGANISMS SEEN CULTURE RESULT PENDING MRSA PCR nares Screening [[id number]] Order Status: No result Lab Status: No result Specimen: NASAL Gastric PH [[id number]] Order Status: No result Lab Status: No result Specimen: GASTRIC FLUID CULTURE, BACTERIA BLOOD [[id number]] Collected: 09/03/24 1223 Order Status: Completed Lab Status: Preliminary result Updated: 09/06/24 0002 Specimen: BLOOD SPEC DESCRIPTION BLOOD SPECIAL REQUESTS NO SPECIAL REQUEST CULTURE RESULT NO GROWTH 3 DAYS CULTURE, URINE [[id number]] Collected: 09/01/24 1110 Order Status: Completed Lab Status: Final result Updated: 09/03/24 0835 Specimen: URINE, CLEAN CATCH SPEC DESCRIPTION URINE CLEAN CATCH SPECIAL REQUESTS NO SPECIAL REQUEST CULTURE RESULT NO GROWTH (< OR = 1,000 CFU/ML) CULTURE, BACTERIA BLOOD X2 [[id number]] Collected: 08/31/24 1034 Order Status: Completed Lab Status: Final result Updated: 09/06/24 0011 Specimen: BLOOD SPEC DESCRIPTION BLOOD SPECIAL REQUESTS NO SPECIAL REQUEST CULTURE RESULT NO GROWTH 5 DAYS Radiology: Imaging: ECG 12 lead Result Date: 09/03/[address] [address] Test Date: 2024-09-03 Pat Name: OBIE SIMS Department: 1 Room: [facility] Gender: Male Dot Etcher Apprentice: Hans Santiago : 1955 Requested By: NIKOLAS JIMÉNEZ Order Number: [id number] Reading MD: Measurements [place]vals[place] Rate: 101 P: TN: 0 QRS: -46 QRSD: 146 T: 132 QT: 360 QTc: 467 Interpretive Statements ATRIAL FIBRILLATION WITH RAPID VENTRICULAR RESPONSE WITH ABERRANT CONDUCTION OR VENTRICULAR PREMATURE COMPLEXES LEFT AXIS DEVIATION [QRS AXIS < - 30] LEFT BUNDLE BRANCH BLOCK [120+ ms QRS DURATION, 80+ ms Q/S IN V1/V2, 85+ ms R IN I/aVL/V5/V6] XR CHEST PORTABLE Result Date: 09/03/[address] [address] Procedure(s):XR CHEST PORTABLE Date of service: 09/03/2024 9:32 [...] right shoulder. Postfusion changes lower cervical spine. IMPRESSION: Persistent bilateral alveolar and interstitial opacification concerning for pneumonia or pulmonary edema. Slight improvement as compared to August 31. Referred By: PROVIDER NON-STAFF Interpreted By: Klever Edwards MD, 09/03/2024 9:54 AM XR SPEECH SWALLOW S[facility] ONLY Result Date: 09/01/[address] [address] Date: 09/01/2024 4:54 PM Exam: Video assisted fluoroscopic swallow study. Comparison: None. Technique:Exam was performed in conjunction with speech pathology. Patient was placed in an upright lateral position. Pulse fluoroscopy time of 2.5 minutes. Radiation dose was K AR = 15.7mGy. The patient was evaluated swallowing honey barium consistency via spoon, straw, and open cup, nectar barium consistency via spoon,straw, and open cup, pudding barium consistency via spoon, and thin barium consistency via cup and straw. The patient was evaluated swallowing a cookie coated in barium followed by nectar barium consistency via open cup. The patient was evaluated swallowing a cookie coated in barium followed by honey barium consistency via spoon. Neutral, bolus hold, and chin tuck maneuvers were performed. History: Dysphasia. Findings: Honey barium consistency via spoon demonstrated premature spillage to the kaitlynn lecula before initiation of the swallow. No evidence [...] of laryngeal penetration. No evidence of aspiration. [place] barium consistency via spoon demonstrated premature spillage to the vallecula before initiation of swallow. No evidence of laryngeal penetration. No evidence of aspiration. [place] barium consistency via straw demonstrated premature spillage [...] This is consistent with impending silent aspiration. [place] barium consistency via open cup demonstrated premature spillage to the vallecula and piriform sinuses before initiation of swallow. No evidence of laryngeal penetration. No evidence of aspiration. [place] barium consistency via straw with a bolus hold maneuver demonstrated premature spillage to the vallecula and piriform sinuses before initiation of swallow. Laryngeal penetration without ejection was visualized as seen in series 14 image 14 through 35. A cough reflex wasnot elicited. This is consistent with impending silent [...] with impending silent aspiration. Thin barium consistency viastraw with a chin tuck maneuver demonstrated premature [...] initiation of swallow with a cookie coated inbarium. Premature spillage to the vallecula before initiation of the swallow with honey barium consistency via spoon. No evidence of laryngeal penetration or aspiration with a cookie coated in bariumor honey barium consistency via spoon. Impression: 1. [...] Munoz on 09/01/2024 4:53 PM Ordered By: JEAN LINDSAY Interpreted By: KESHA Munoz, 09/01/2024 4:53 PM ECG 12 lead Result Date: 09/01/[address] [address] Test Date: 2024-08-31 Pat Name: OBIE SIMS Department: 1 Room: [facility] Gender: Male Dot Etcher Apprentice: Ti : 1955 Requested By: ZARIA THACKER Order Number: [id number] Reading MD: Domingo Parks Measurements Intervals [place] Rate: 80 P: TN: 0 QRS: -32 QRSD: 147 T: 128 QT: 379 QTc: 439 Interpretive Statements ATRIAL FIBRILLATION LEFT AXIS DEVIATION [QRS AXIS < -30] LEFT BUNDLE BRANCH BLOCK [120+ ms QRS DURATION, 80+ ms Q/S IN V1/V2, 85+ ms R IN I/aVL/V5/V6] ROOM SUPERVISOR [employer] Result Date: 09/01/[address] [address] EXAMINATION: Renal ultrasound EXAM DATE/TIME: 08/31/2024 10:03 PM REASON FOR EXAM: BRITTANY COMPARISON: CT abdomen pelvis 11/17/2023, renal ultrasound 08/06/2023 TECHNIQUE: Transabdominal ultrasoundevaluation of the bilateral kidneys and bladder was performed for analysis of grayscale and color Doppler imaging characteristics. FINDINGS: The right kidney measures 11.6 cm in length, overall suboptimally visualized. The left kidney is not seen. No right-sided hydronephrosis. No definite right-sided focal renal lesion. Echogenicity of the right kidney is within normal limits. The urinary bladder is decompressed with Oneill catheter. IMPRESSION: 1. No right-sided hydronephrosis. 2. Nonvisualized left kidney and suboptimally visualized right kidney. 3. Decompressed urinary bladder with Oneill catheter. Referred By: PROVIDER NON-STAFF Interpreted By: Ever Love MD, 09/01/2024 2:04 AM USE ECHOCARDIOGRAM W CON Result Date: 08/31/2024 Echocardiography Report Pat.Name: OBIE SIMS [facility].ID: [id number] .Date: 08/31/2024 Refer.MD: [id number] NON-STAFF PROVIDER EWDPROV EWDPROV Exam Time: 1:13:00 PM Study Type:ECHO W/CONTRAST COMPLETEHeight: 168 cm Weight: 110 kg BSA: 2.17 m2 Age: 12 1955,69Y Sex: M BP: 117/53 HR: 84 bpm Sonogrphr: Jose Cruz Tejada [facility] Pat. Stat.:Inpatient Room: 622 CPT - 4: C8929 Reason for Study:Congestiveheart failure Procedures: 2D, M-mode, Doppler, Color Flow, Definity was used to enhance endocardialdefinition. Race: W ++++++++++++++++++++++++++++++++++++ SUMMARY: ++++++++++++++++++++++++++++++++++ ++ Technically difficult study. The left ventricular size is mildly enlarged. The calculated ejection fraction is 43%. The right ventricular size is moderately to severely enlarged. Right ventricularsystolic function is severely depressed. Right ventricular systolic pressure is 36 mmHg + estimatedRAP. No evidence of pericardial effusion. Moderate aortic valve stenosis. Mild tricuspid regurgitation. ++++++++++++++++++++++++++++++++++++ FINDINGS: ++++++++++++++++++++++++++++++++++++ LV: The left ventricular size is mildly enlarged. The left ventricular systolic function is mild to moderately d epressed. The calculated ejection fraction is 43%. No concentric left ventricular hypertrophy. Leftventricular diastolic function is not reliably assessed. RV: [...] evidence of tricuspid valve stenosis. ++++++++++++++++++++++++++++++++++++ MEASUREMENTS: +++++++++++++++++++++++++++ +++++++++ DOPPLER LVOT LVOTpkPG 4 mmHg LVOTmnPG 2 mmHg LVOTpkVel 96.4 cm/s (70- 110)+ LVOT SV 65 ml LVOT TVI 17.3 cm AV Forward Flow AV TVI 60.8 cm AV pkPG 37 mmHg AV pkVel 305 cm/s (100-170)+* Area (TVI) 1.07 cm2 (3-5)* AV mnVel 231 cm/s Area (Wilbert) 1.19 cm2 (3-5)* AV mnPG 23 mmHg MV Forward Flow MVDeTm 153 msec MV pkE 116 cm/s (60-130) [...] Mass 2D Value 223 g LV Mass Pbnql5G Value 103 g/m2 RA Volume Atrial Schaffer 6.38 cm Atrial Schaffer 24.8 cm2 Atrial Schaffer 77.9 ml 2D Left Ventricle LVIDd 5.45 cm (3.6-5.2)* LV EF(Bi-Plane) 43.3 % (63-77)* LVI Ds 4.49 cm (2.3-3.9)* LVPW LVPWd 1.01 cm Ventricular Septum IVSd 1.08 cm Left Atrium LA a-p 5.17 cm(2.8-3.4)* Aorta Ao Asc 2.92 cm (zsc 1) LVOT LVOT 2.19 cm Ratios IVS LA Biplane LAVol I BP 47 ml/[id number] Ventricle Right Ventricle 5.62 cm Right Ventricul 28.3 cm2 Right Ventricul 34.9 cm2 Right Ventricul 18.9 % MMODE Aorta Ao Rt 2.8 cm (2-3.7) <Electronic Signature> 08/31/2024 11:02 PM Zora Lopez XR CHEST PORTABLE Result Date: 08/31/[address] [address] Examination: XR CHEST PORTABLE Exam time: 08/31/2024 10:12 AM Clinical history: Cough Comparison: 07/31/2024 Technique: AP chest Findings: Shallow inspiration with patient slightly rotated. Post midline sternotomy changes with prosthetic valve. Borderline cardiomegaly similar to previous study. Persistent pulmonaryvascular congestion and interstitial edema very similar to the previous study. No new airspace consolidation. No pleural effusion. IMPRESSION: 1) Borderline cardiomegaly with persistent pulmonary vascular congestion and interstitial edema very similar to previous study. Ordered By: JEAN LINDSAY Interpreted By: Rigoberto Calderon MD, 08/31/2024 3:04 PM KEYONA MILLER MD 09/06/2024 4:45 AM ROOM SUPERVISOR * Kathleen Kahn PharmD - 09/05/2024 10:01 PM CST Pharmacy Clinical Services: Renal Dose Adjustment Note CREATININE S/P/B Date Value Ref Range Status 09/05/2024 2.52 (H) 0.70 - 1.30 MG/DL Final CrCl = estimated creatinine clearance is 28.5 mL/min (A) (by C-G formula based on SCr of 2.52 mg/dL(H)). Weight = 88.8 kg (195 lb 12.3 oz) According to the patient's renal function, famotidine was adjusted from 20 mg every 24 hours to 10 mg every 24 hours. Renal adjustment per P&T Policy KATHLEEN KAHN PharmD Phone number: [phone] 09/05/2024 10:01 PM ROOM SUPERVISOR * Nati Cole - 09/05/2024 1:00 PM CST Vancomycin Pharmacokinetic Progress Note Day 2 of therapy Obie Sims is a 69-year-old male for which pharmacy has been consulted to dose vancomycin for Pneumonia. Other antibiotics ordered include zosyn. Allergies: Review of patient's allergies indicates: No Known Allergies Height: 1.676 m (5' 6 ) Weight: 88.8 kg (195 lb 12.3 oz) Body mass index is 31.6 kg/m??. Temp (24 hr max): Temp Av.5 ??F (36.9 ??C) Min: 97.7 ??F (36.5 ??C) Max: 99.7 ??F (37.6 ??C) Today's labs and vitals: Lab Results Component Value Date/Time WBC 19.33 (H) 09/05/2024 04:00 AM WBC 14.31 (H) 09/04/2024 04:15 AM WBC 17.46 (H) 09/03/2024 08:29 PM WBC 13.49 (H) 09/03/2024 05:06 AM WBC 13.53 (H) 09/02/2024 07:41 AM Lab Results Component Value Date/Time CR 1.92 (H) 09/05/2024 11:10 AM CR 2.44 (H) 09/05/2024 04:00 AM CR 2.29 (H) 09/04/2024 04:15 AM CR 2.15 (H) 09/03/2024 08:29 PM CR 1.81 (H) 09/03/2024 05:06 AM CrCl = estimated creatinine clearance is 37.4 mL/min (A) (by C-G formula based on SCr of 1.92 mg/dL(H)). Intake/Output Summary (Last 24 hours) at 09/05/2024 1300 Last data filed at 09/05/2024 1134 Gross per 24 hour Intake 1150 ml Output 2250 ml Net -1100 ml Pertinent Cultures: Date Drawn Site Organism Pertinent Sensitivity 08/31 BCx NGTD 09/01 UCx NGTD 09/03 BCx NGTD 09/05 Tracheal aspirate Cx pending Levels: Date Time Level AUC Dose Comments 09/05 1110 14.5 445 1750 x1, 1000 x1 22 hr lvl Assessment: Obie Sims is a 69-year-old male who is currently receiving vancomycin. AUC goal is 400 - 600 Current AUC level is Therapeutic Renal function is Improving. Scr 2.44 -> 1.92 Plan: Antibiotic Plan: 1000 mg x1 Next level due: 09/06 @ 1200 Pharmacy will continue to follow cultures, clinical status, and appropriateness of therapy. Thank you for the consult. Pharmacy Consult per Dr. Neftali COLE, Physician General Internal Medicine Phone: [phone] 09/05/2024 1:00 PM Cosigned by Misael Oh, PharmD at 09/05/2024 2:00 PM WAX ROOM SUPERVISOR ROOM SUPERVISOR ROOM SUPERVISOR * Lakhwinder Nkechi Knott, RD - 09/05/2024 11:31 AM CST CLINICAL DIETITIAN NOTE Current oral diet order: No diet orders on file 09/05/24 1128 TF Review TF Route OGT TF Administered per RD Recommendation Yes Cardiorespiratory Vent Support Yes Mean Arterial Pressure Majority > or equal to 65 mmHg over the past 24 hours GI Tolerance Bowel Movement No concerns requiring nutrition intervention Vomiting No Abdominal Distension No Medication Review Lipid-Containing Medication(s) Decreasing (off propofol) TF-Medication Interaction Identified No Labs Results Reviewed Abnormalities identified, see Dietitian progress note (potassium replaced per MAR, increasing free water 2/2 hypernatremia) Summary Recommendation Change in TF regimen indicated, see Dietitian progress note Meds: Off propofol; Warfarin not being given acetylcysteine 10 % 200 mg Nebulization 2 times daily albumin human 12.5 g Intravenous Once allopurinol 200 mg Tube Daily aspirin 81 mg Tube Daily atorvastatin 80 mg Tube Nightly at bedtime budesonide 0.25 mg Nebulization 2 times daily clotrimazole-betamethasone Topical Q12H docusate 100 mg Tube BID And senna 5 mL Tube BID famotidine 20 mg Intravenous Daily Or famotidine 20 mg Tube Daily folic acid 1 mg Tube Daily artificial tears 1 drop Both Eyes Q4H hydrocortisone 50 mg Intravenous 2 times per day insulin glargine 40 Units Subcutaneous Nightly at bedtime insulin lispro 0-15 Units Subcutaneous Q4H ipratropium-albuterol 3 mL Nebulization Q4H nystatin 5 mL Oral 4x Daily nystatin Topical BID piperacillin-tazobactam 3.375 g Intravenous Q8H potassium chloride 40 mEq Intravenous Once pregabalin 150 mg Tube BID sertraline 50 mg Tube Daily traZODone 300 mg Per NG Tube Nightly at bedtime vancomycin pharmacy to dose Intravenous See Admin Instructions warfarin (COUMADIN) pharmacy to dose Oral See Admin Instructions dexmedetomidine 0.4 mcg/kg/hr (09/05/24 1124) fentaNYL Stopped (09/04/24 1525) propofol Stopped (09/04/24 1729) TF peptide based high protein, low fat w/MCT 25 mL/hr (09/05/24 0400) Labs: Recent Labs Lab 09/04/24 1120 09/04/24 1543 09/04/24 1952 09/04/24 2340 09/05/24 0411 09/05/24 0832 09/05/24 1115 GLUCOSEPOC 279* 209* 127* 193* 174* 196* 159* Recent Labs Lab 09/03/249 09/04/24 0415 09/05/24 0400 NA 144 148* 152* K 4.2 3.5 3.2* MAGNESIUM 2.4 2.4 2.6 PHOS 4.1 4.1 2.8 BUN 60* 64* 64* CR 2.15* 2.29* 2.44* GFREST 32* 30* 28* GLU 442* 320* 191* HGB A1C Date Value Ref Range Status 09/01/2024 7.0 (H) <5.7 % Final 02/17/2023 8.0 (H) <5.7 % Final Anthropometrics: Ht Readings from Last 1 Encounters: 08/31/24 1.676 m (5' 6 ) Last 2 Recorded Weights 09/03/2442209/04/24 1100 Weight: 95.3 kg (210 lb 1.6 oz) 88.8 kg (195 lb 12.3 oz) Body mass index is 31.6 kg/m??. Evaluation: Noted patient off propofol, however no plan to extubate at this time, physician agreeable to advance to goal. Increasing free water flush 2/2 hypernatremia. Nutrition prescription: Tube Feeding: Vital HP via OG tube. Continuous infusion at 55 mL/hr. Protein Modular: Administer 1 packet(s) Prosource once daily to assist with meeting estimated protein requirement. Free Water Flushes: 100 mL/hr Nutrient provision from recommended TF (based on 22 hour infusion and dosing weight of 88.8 kg): ADILENE: 1270 kcal/day (14 kcal/kg/day) PRO: 121 gm/day (1.9 gm/kg/day using IBW of 64.4 kg) CHO: 134 gm/day (42% of kcal provided) FLUID: 3506 mL/day free water from TF, free water flushes and free water from modular administration Recommended TF meets 100% estimated kcal needs and 94% estimated protein needs with free water exceeding estimated needs due to hypernatremia. Plan: 1. Maintain continuous TF with Vital HP via OG tube and advance to new goal rate of 55 mL/hr. 2. Free water flush: 100 mL/hr. 3. Provide 1 packet(s) of Prosource once daily via OG tube with free water flush. 4. Labs: BMP, Mg and Phos daily. Replete electrolytes as indicated. LAKHWINDER KNOTT RD, LDN ROOM SUPERVISOR * Nati Cole - 09/05/2024 10:22 AM CST Warfarin - Pharmacy Dosing Service Note Obie Sims is a 69-year-old male for which pharmacy has been consulted to dose warfarin for A.fib. Goal INR is 2-3. Warfarin Order Set Activated: Yes Warfarin Start Date: continuation from home Past Medical History: Diagnosis Date Abnormal ankle brachial index (STELLA) Acute on chronic heart failure, unspecified heart failure type ([facility]) Anxiety Aortic valve stenosis Arthritis Asthma, mild persistent ([facility]) 04/06/2021 Atrial fibrillation ([facility]) s/p PVI/[facility] 10/2015 Bilateral leg pain Carotid disease, bilateral ([facility]) CHF (congestive heart failure) ([facility]) Claudication ([facility]) COPD (chronic obstructive pulmonary disease) ([facility]) Coronary artery disease Diabetes mellitus, type II ([facility]) Edema 04/19/2018 2+ pitting History of blood transfusion Hyperlipidemia Hypertension LV dysfunction Non-pressure chronic ulcer of left calf limited to breakdown of skin ([facility]) 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 breakdown of skin ([facility]) Osteoarthritis PAD (peripheral artery disease) ([facility]) Pneumonia Restless leg syndrome S/P aortic valve replacement with bioprosthetic valve 2013 SOB (shortness of breath) Stroke ([facility]) Varicose veins of bilateral lower extremities with other complications Weight gain with edema Home warfarin dose: warfarin 2 mg po daily per med rec Bridging agent: none Vitamin K use: No; (if yes, indicate date, dose, and route) Diet: PO Recent Labs Lab 09/03/24202809/04/24 0415 09/05/24 0400 HGB 13.7 12.1 12.3 HCT 44.3 40.6 39.5 PLT 131* 138* 137* AST 21 16 19 ALT 24 21 21 ALKP 143* 118* 119* ALB 3.0* 2.5* 2.4* Date INR Dose Received 08/28 5.4 per [facility] paperwork - 08/29 - - 08/30 2.7 2 mg at [facility] 08/31 1.8 - 09/01 1.6 2 mg 09/02 1.9 2 mg 09/03 2.6 hold 09/04 3.7 hold 09/05 2.2 2 mg Drug interactions: Potential to increase INR: - Potential to decrease INR: - Potential to increase the risk of bleeding: aspirin, sertraline Warfarin Sensitivity: moderate, based on the following risk factors: thrombocytopenia, end state renal disease or Scr > 2.2, and age 66-79. Hgb/Hct today are stable INR today therapeutic, with a large jump down today The plan is to give 2 mg tonight with a tentative plan to give 2 mg tomorrow based on INR. Recheck an INR in the morning to assist with subsequent dosing. Pharmacy will continue to monitor labs and notes daily, adjusting the dose as clinically appropriate. Thank you for the consult. Pharmacy to dose per Dr. Neftali COLE, pharmacy tech customer service Phone number: [phone] 09/05/2024 10:22 AM Cosigned by Misael Oh, PharmD at 09/05/2024 1:12 PM WAX ROOM SUPERVISOR ROOM SUPERVISOR ROOM SUPERVISOR * Keyona Miller MD - 09/05/2024 7:50 AM CST Images from the original note were not included. Critical Care Medicine [facility], [place], [place] [employer] (Doc Halo) 15/03: RENEE Lora [employer]iler On-call Progress note Reason for ICU admission: Acute respiratory failure with hypoxia Subjective Patient follow commands off sedation. Tolerating pressure support ventilation. Off Levophed this morning. Blood pressure on soft side. Low tidal volume. Continue prolonged weaning. Input/Output 09/04 0700 - 09/05 0659 In: 1580 [I.V.:708] Out: 2775 [Urine:2775] Intake/Output Summary (Last 24 hours) at 09/05/2024 0750 Last data filed at 09/05/2024 0700 Gross per 24 hour Intake 1580 ml Output 2800 ml Net -1220 ml Principal Problem: CHF exacerbation ([facility]) HPI: Hospital day: 5 ICU day: 1d 11h History is obtained from chart review and patient's family History is limited due to patient wearing BiPAP and in respiratory distress Obie Sims is a 69-year-old male admitted 08/31/2024 with past medical history of diabetes mellitus, hypertension, hyperlipidemia atrial fibrillation on warfarin, pulmonary hypertension, bioprosthetic aortic valve, COPD, SHEELA. Echocardiogram in February 2024 showed EF of 40 to 45% with bioprosthetic aortic valve Patient was admitted to hospitalist service on 08/31 as a transfer due to BRITTANY and hyperkalemia. He was seen by cardiology and nephrology and was being diuresed. On 09/03, rapid response was called as patient had worsening hypoxia concern for wide-complex arrhythmia start (noticed to be frequent PVCs on telemetry review). Patient was hypoxic in 60s initially requiring increased oxygen via nasal cannula and then placement of BiPAP at FiO2 of 100%. Patient's original status CODE STATUS is DNR however on clarification by hospitalist he was okay with intubation. This was discussed with patient's family and they were in agreement with intubation. He was transferred to [facility] ICU and emergently intubated with rapid sequence induction. Lab workup showed pH of 7.25, pCO2 74, creatinine up from 1.8-2.15, blood sugar 442, proBNP 28,000, troponin 115. Patient was receiving Lasix drip set 5 mg/h and it was increased to 10 mg/h and additional dose of IV Diuril given. On arrival to ICU, postintubation patient was very hypoxic requiring high FiO2 and PEEP with elevated peak and plateau pressure. His hypoxia improved after ventilator adjustments and decreasing the tidal volume. Assessment and Plan: Acute respiratory failure with hypoxia needing intubation, mechanical ventilation Possible CHF exacerbation versus aspiration event BRITTANY on CKD 3B, suspected cardiorenal Thrombocytopenia, mild, monitor Acute on chronic systolic and right-sided heart failure with reduced ejection fraction Ground-level fall, generalized weakness and rib fractures Pneumonia, HCAP versus aspiration Coagulopathy, supratherapeutic INR, improving Oral thrush Diabetes mellitus type 2, uncontrolled Hyperlipidemia Hypertension Chronic atrial fibrillation status post ablation, on warfarin Pulmonary hypertension Status post aortic valve replacement with bioprosthetic valve COPD Obstructive sleep apnea Gout History of CVA Peripheral arterial disease PLAN: Neurology/Sedation: Monitor mental status Precedex. RASS: 0 Cardiovascular: Keep MAP >65 mmHg or as needed Entresto on hold in setting of BRITTANY Lasix as needed. Cardiology following Continue aspirin, statin Holding Coreg due to low blood pressure Respiratory: Continue Mechanical Ventilation, Low TV, High PEEP Strategy Mucomyst and DuoNebs Blood gas every 4 hours and adjust mechanical ventilation Gastrointestinal: Tube feeds Renal/: Monitor UOP and Cr Avoid nephrotoxins Nephrology following Fluid and Electrolytes: Monitor and replace Infectious Disease: F/u cultures, continue antibiotics Continue vancomycin and Zosyn Blood cultures: No growth till date Urine cultures negative Endocrine: BG goal of <180 Uncontrolled, starting Lantus 25 units daily and sliding scale Hematology/Oncology: Transfuse for Hb <7, Platelet <10K Musculoskeletal: Continue pain management PT/OT consultation Code Status: DNR, okay to intubate, discussed with family Discussed clinical course and updated family at bedside, all questions answered Feeding: Tube feeds Agitation: None Sedation: Fentanyl propofol, Precedex Thromboprophylaxis: INR therapeutic. Start heparin drip once INR subtherapeutic. Extubation: Daily SBT Restraints: Yes Foleys: Yes Lines and Tubes: PIV x 3 Activity: As tolerated, as directed by PT/oT Glycemic control: BG goal of <180 GI prophylaxis: IV pepcid Disposition: Continue ICU Status Critical Care time spent in evaluation and management of a critically ill or injured patient is 75 minutes, such that the critical illness or injury acutely impairs one or more organ system: (Neurology, cardiovascular, respiratory, renal, ID, endocrine) such that there is a high probability of imminent or life-threatening deterioration in the patient's condition needing immediate attention or presence of critical care physician near bedside for the above time . Complex decisions were made to manipulate and support multiple organ systems. The time listed is exclusive of any procedures which may have been performed. Critical care time includes time spent at bedside performing history and physical exam, time spent researching patient prior to interaction with patient, time spent discussing findings and treatment plan with patient and/or family, time spent discussing patient with consultants and colleagues, time spent reviewing pertinent laboratory and radiographic evaluations, time spent re-evaluating patient, or time spent discussing patient with nursing staff. All of the patient's and his family's questions were answered, and the plan of care going forward was outlined to them. KEYONA MILLER MD 09/05/2024 7:50 AM Past Medical Hx: As below Past surgical Hx: As below Home Medications: As below Family History: As below Personal and social hx: As below Past Medical History: Diagnosis Date Abnormal ankle brachial index (STELLA) Acute on chronic heart failure, unspecified heart failure type ([facility]) Anxiety Aortic valve stenosis Arthritis Asthma, mild persistent ([facility]) 04/06/2021 Atrial fibrillation ([facility]) s/p PVI/[facility] 10/2015 Bilateral leg pain Carotid disease, bilateral ([facility]) CHF (congestive heart failure) ([facility]) Claudication ([facility]) COPD (chronic obstructive pulmonary disease) ([facility]) Coronary artery disease Diabetes mellitus, type II ([facility]) Edema 04/19/2018 2+ pitting History of blood transfusion Hyperlipidemia Hypertension LV dysfunction Non-pressure chronic ulcer of left calf limited to breakdown of skin ([facility]) 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 breakdown of skin ([facility]) Osteoarthritis PAD (peripheral artery disease) ([facility]) Pneumonia Restless leg syndrome S/P aortic valve [...] performed by Kilo Navarro MD at [facility] OR COLONOSCOPY N/A 01/27/2022 COLONOSCOPY WITH COLD SNARE POLYPECTOMY performed by Kilo Navarro MD at [facility] OR HIP ARTHROPLASTY Left KNEE ARTHROPLASTY Bilateral REPAIR ROTATOR CUFF W/ OR W/O ACROMIOPLASTY Left USE NEMO+CARDIOVERSION 03/24/2016 XA A-FIB ABLATION 10/23/2015 PVI/[facility] Family History Problem Relation Name Age of Onset TB Mother No current facility-administered medications on file prior to encounter. Current Outpatient Medications on File Prior to Encounter Medication Sig Dispense Refill albuterol sulfate HFA 108 (90 Base) MCG/ACT inhaler Inhale 2 puffs into the lungs every 4 (four) hours as needed. allopurinol 300 MG tablet Take 1 tablet (300 mg total) by mouth daily. atorvastatin 80 MG tablet Take 1 tablet (80 mg total) by mouth nightly at bedtime. carvedilol (COREG) 3.125 MG tablet Take 1 tablet (3.125 mg total) by mouth 2 (two) times daily. clotrimazole-betamethasone (LOTRISONE) cream 1 Application every 12 (twelve) hours. docusate sodium 100 MG capsule Take 1 capsule (100 mg total) by mouth as needed for Constipation. folic acid (FOLVITE) 1 MG tablet Take 1 tablet (1 mg total) by mouth daily. furosemide (LASIX) 80 MG tablet Take 1 tablet (80 mg total) by mouth daily. 30 tablet 0 glipiZIDE XL (GLUCOTROL XL) 5 MG [...] tablet (25 mg total) by mouth daily. nystatin (MYCOSTATIN) powder Apply topically 2 (two) times daily. Apply to groin, under abdominal fold 15 g 0 pantoprazole EC 40 MG tablet Take 1 tablet (40 mg total) by mouth daily. pregabalin (LYRICA) 150 MG capsule Take 1 capsule (150 mg total) by mouth 2 (two) times daily. sacubitril-valsartan (ENTRESTO) 24-26 MG tablet Take 1 tablet by mouth 2 (two) times daily. 60 tablet 11 Semaglutide (OZEMPIC, 1 MG/DOSE, SC) Inject into the skin once a week. sertraline 50 MG tablet Take 1 tablet (50 mg total) by mouth daily. traZODone (DESYREL) 150 MG tablet Take 2 tablets (300 mg total) by mouth nightly at bedtime. TRELEGY ELLIPTA 100-62.5-25 MCG/ACT AEROSOL POWDER, BREATH ACTIVATED Inhale 1 puff into the lungs daily. warfarin (COUMADIN) 4 MG tablet Take 1 tablet (4 mg total) by mouth daily. Monitor INR every 3-4 days and follow up closely with PCP (Patient taking differently: Take 0.5 tablets (2 mg total) by mouth daily. Monitor INR every 3-4 days and follow up closely with PCP) 30 tablet 0 Review of patient's allergies indicates: No Known Allergies Social History Socioeconomic History Marital status: Spouse name: Ema Number of children: 2 Years of education: Not on file Highest education level: Not on file Occupational History Employer: NOT EMPLOYED Tobacco Use Smoking status: Former Passive exposure: Past Smokeless tobacco: Former Types: Chew Vaping Use Vaping status: Never Used Substance and Sexual Activity Alcohol use: Yes Comment: 4 beers per week Drug use: No Sexual [...] Social History Narrative Not on file Social Drivers of Health Financial Resource Strain: Low Risk (08/31/2024) Overall Financial Resource Strain (CARDIA) Difficulty of Paying Living Expenses: Not very hard Food Insecurity: No Food Insecurity (08/31/2024) Hunger Vital Sign Worried About Running Out of Food in the Last Year: Never true Ran Out of Food in the Last Year: Never true Transportation Needs: No Transportation Needs (08/31/2024) PRAPARE - Transportation Lack of Transportation (Medical): No Lack of Transportation (Non-Medical): No Physical Activity: Not on file Stress: Patient Declined (02/16/2023) [employer] [employer] - Occupational Stress Questionnaire Feeling of Stress : Patient declined Social Connections: Patient Declined (02/16/2023) Social Connection and Isolation Panel [NHANES] Frequency of Communication with Friends and Family: Patient declined Frequency of Social Gatherings with Friends and Family: Patient declined Attends Zoroastrianism Services: Patient declined Active Member of Clubs or Organizations: Patient declined Attends Club or Organization Meetings: Patient declined Marital Status: Patient declined Recent Concern: Social Connections - Moderately Isolated (02/06/2023) Social Connection and Isolation Panel [NHANES] Frequency of Communication with Friends and Family: Twice a week Frequency of Social Gatherings with Friends and Family: Twice a week Attends Zoroastrianism Services: More than 4 times per year Active Member of Clubs or Organizations: No Attends Club or Organization Meetings: Never Marital Status: Intimate Partner Violence: Not At Risk (08/31/2024) Humiliation, Afraid, Rape, and Kick questionnaire Fear of Current or Ex-Partner: No Emotionally Abused: No Physically Abused: No Sexually Abused: No Housing Stability: Low Risk (08/31/2024) Housing Stability Vital Sign Unable to Pay for Housing in the Last Year: No Number of Times Moved in the Last Year: 0 Homeless in the Last Year: No Current inpatient medications: Current Facility-Administered Medications: acetaminophen (TYLENOL) tablet 650 mg, 650 mg, Tube, Q4H PRN, Juan Francisco Rubi MD acetylcysteine 10 % (MUCOMYST) inhalation solution 200 mg, 200 mg, Nebulization, 2 times daily, Jean Lindsay MD, 200 mg at 09/05/24 0728 albuterol (PROVENTIL) (2.5 MG/3ML) 0.083% nebulizer solution 2.5 mg, 2.5 mg, Nebulization, Q2H PRN,Juan Francisco Rubi MD, 2.5 mg at 09/04/24 0724 allopurinol (ZYLOPRIM) tablet 200 mg, 200 mg, Tube, Daily, Juan Francisco Rubi MD, 200 mg at 09/04/24 0949 aspirin chewable tablet 81 mg, 81 mg, Tube, Daily, Juan Francisco Rubi MD, 81 mg at 09/04/24 0948 atorvastatin (LIPITOR) tablet 80 mg, 80 mg, Tube, Nightly at bedtime, Juan Francisco Rubi MD, 80 mg at 09/04/242023 budesonide (PULMICORT) nebulizer solution 0.25 mg, 0.25 mg, Nebulization, 2 times daily, Juan Francisco Rubi MD, 0.25 mg at 09/05/24 0728 clotrimazole-betamethasone (LOTRISONE) cream, , Topical, Q12H, Zaria Thacker, [facility], Given at 09/04/242028 dexmedetomidine (PRECEDEX) 400 mcg in NS 100 mL IV infusion, 0.1-1.4 mcg/kg/hr, Intravenous, Continuous, Keyona Miller MD, Last Rate: 9.53 mL/hr at 09/04/242337, 0.4 mcg/kg/hr at 09/04/242337 docusate (COLACE) 50 MG/5ML liquid 100 mg, 100 mg, Tube, BID, 100 mg at 09/04/242023 AND senna8.8 MG/5ML syrup 8.8 mg, 5 mL, Tube, BID, Keyona Miller MD, 8.8 mg at 09/04/242023 famotidine (PF) (PEPCID) injection 20 mg, 20 mg, Intravenous, Daily OR famotidine (PEPCID) tablet 20 mg, 20 mg, Tube, Daily, Keyona Miller MD [DISCONTINUED] fentaNYL (SUBLIMAZE) injection 50 mcg, 50 mcg, Intravenous, Once AND fentaNYL (SUBLIMAZE) 10 mcg/mL infusion, 10-100 mcg/hr, Intravenous, Continuous, Paused at 09/04/24 1525 AND fentaNYL (SUBLIMAZE) injection 25 mcg, 25 mcg, Intravenous, Q10 Min PRN, Juan Francisco Rubi MD folic acid (FOLVITE) tablet 1 mg, 1 mg, Tube, Daily, Juan Francisco Rubi MD, 1 mg at 09/04/24 0949 genteal tears (ARTIFICIAL TEARS) 0.1-0.2-0.3 % ophthalmic solution 1 drop, 1 drop, Both Eyes, Q4H, Juan Francisco Rubi MD, 1 drop at 09/05/24 0649 HYDROcodone-acetaminophen (NORCO) 5-325 MG tablet 1 tablet, 1 tablet, Tube, Q4H PRN, Juan Francisco Rubi MD hydrocortisone sodium succinate (Solu-CORTEF) 50 mg in sodium chloride bacteriostatic 0.9 % 1 mL injection, 50 mg, Intravenous, Q6H, Keyona Miller MD, 50 mg at 09/05/24 0223 HYDROmorphone (DILAUDID) injection 0.2 mg, 0.2 mg, Intravenous, Q2H PRN, ALONDRA Christianson,0.2 mg at 09/04/24 1620 hydrOXYzine (ATARAX) tablet 50 mg, 50 mg, Per NG Tube, TID PRN, Juan Francisco Rubi MD insulin glargine (LANTUS) injection 40 Units, 40 Units, Subcutaneous, Nightly at bedtime, Keyona Miller MD, 40 Units at 09/04/24 2026 insulin lispro (HUMALOG/ADMELOG) injection 0-15 Units, 0-15 Units, Subcutaneous, Q4H, Keyona Abarca MD, 4 Units at 09/05/24 0424 ipratropium-albuterol (DUONEB) 0.5-2.5 (3) MG/3ML nebulizer solution 3 mL, 3 mL, Nebulization, Q4H,Juan Francisco Rubi MD, 3 mL at 09/05/24 0728 naLOXone (NARCAN) injection 0.4 mg, 0.4 mg, Intravenous, PRN, ALONDRA Christianson norepinephrine (LEVOPHED) 8 mg/250mL NS infusion, 0.5-60 mcg/min, Intravenous, Continuous, Juan Francisco Rubi MD, Paused at 09/05/24 0621 nystatin (MYCOSTATIN) [id number] UNIT/ML suspension 5 mL, 5 mL, Oral, 4x Daily, Jean Lindsay MD, 5mL at 09/04/242024 nystatin (MYCOSTATIN) powder, , Topical, BID, ALONDRA Christianson, Given at 09/04/24 1556 ondansetron (ZOFRAN) injection 4 mg, 4 mg, Intravenous, Q8H PRN, ALONDRA Christianson piperacillin-tazobactam (ZOSYN) 3.375 g in sodium chloride 0.9 % 50 mL IVPB, 3.375 g, Intravenous, Q8H, Jean Lindsay MD, Last Rate: 12.5 mL/hr at 09/05/24422, 3.375 g at 09/05/24422 polyethylene glycol (GLYCOLAX) packet 17 g, 17 g, Tube, Daily PRN, Juan Francisco Rubi MD pregabalin (LYRICA) capsule 150 mg, 150 mg, Tube, BID, Juan Francisco Rubi MD, 150 mg at 09/04/242023 propofol (DIPRIVAN) infusion, 0-50 mcg/kg/min, Intravenous, Continuous, Juan Francisco Rubi MD, Paused at09/04/24 1729 sertraline (ZOLOFT) tablet 50 mg, 50 mg, Tube, Daily, Juan Francisco Rubi MD, 50 mg at 09/04/24 0948 TF peptide based high protein, low fat w/MCT (VITAL HP) liquid, 25 mL/hr, Per OG tube, Continuous, Keyona Miller MD, Last Rate: 25 mL/hr at 09/05/24 0400, 25 mL/hr at 09/05/24 0400 traZODone (DESYREL) tablet 300 mg, 300 mg, Per NG Tube, Nightly at bedtime, Juan Francisco Rubi MD, 300 mg at 09/04/242025 Pharmacy to dose vancomycin, , , Once AND vancomycin pharmacy to dose placeholder, , Intravenous, See Admin Instructions, Jean Lindsay MD Pharmacy to dose warfarin (COUMADIN), , , Once AND warfarin (COUMADIN) pharmacy to dose placeholder, , Oral, See Admin Instructions, Jean Lindsay MD Subjective: 12 point review of systems was completed and negative except findings reported above in ICU timeline and HPI. Objective: Body mass index is 31.6 kg/m??. Current vital signs Blood pressure 112/53, pulse 79, temperature 98.8 ??F (37.1 ??C), temperature source Tympanic, resp. rate 16, height 1.676 m (5' 6 ), weight 88.8 kg (195 lb 12.3 oz), SpO2 94%. Vitals: 09/05/24 0730 BP: Pulse: Resp: Temp: SpO2: 94% 24 hour BP and temperature range @[id number]@ Temp (24hrs), Av.1 ??F (36.7 ??C), Min:97.3 ??F (36.3 ??C), Max:98.8 ??F (37.1 ??C) Input/Output 09/04 0700 - 09/05 0659 In: 1580 [I.V.:708] Out: 2775 [Urine:2775] Intake/Output Summary (Last 24 hours) at 09/05/2024 0750 Last data filed at 09/05/2024 0700 Gross per 24 hour Intake 1580 ml Output 2800 ml Net -1220 ml Physical exam: Gen: Patient is very lethargic, difficult to arouse intubated later on and sedated Neuro: Moving all extremities, no deficit appreciated Head: Atraumatic and normocephalic Eyes: Pupils equal round and reactive, no jaundice ENT: Moist mucous membrane Neck: JVD + Cardiac: Irregular, S1, S2, no added sounds Pulm: Bilateral air entry, bibasilar crackles Abdomen: Soft and nontender, bowel sounds present Skin: No rash or erythema Extremities: Trace pedal edema Data Review: Recent Labs 09/03/24202809/04/24 0415 09/05/24 0400 WBC 17.46* 14.31* 19.33* HGB 13.7 12.1 12.3 HCT 44.3 40.6 39.5 MCV 94.5 94.2 91.9 PLT 131* 138* 137* RBC 4.69 4.31* 4.30* Recent Labs Lab 09/03/24202809/04/24 0415 09/05/24 0400 NA 144 148* 152* K 4.2 3.5 3.2* CL 110 111 114 CO2 30.9 31.3 30.7 AGAP 3.1 5.7 7.3 BUN 60* 64* 64* CR 2.15* 2.29* 2.44* GLU 442* 320* 191* CA 9.7 9.2 9.2 TP 9.0* 7.6 7.7 ALB 3.0* 2.5* 2.4* TBIL 1.4* 1.3* 1.3* ALKP 143* 118* 119* AST 21 16 19 ALT 24 21 21 Coagulation: Recent Labs 09/03/24 0050 09/03/24 0506 09/04/24 0415 INR 3.3* 2.6* 3.7* Troponins: Recent Labs Lab 09/03/24202809/04/24 0415 09/04/24 0800 TROP 115* 145* 136* ABG: Lab Results Component Value Date BASEEXCESS 2.0 09/03/2024 VBG: No components found for: PHMIXEDVEN , WW3IINGSAV , [id number] , EPA4ROQKY , FA0UOYN Lactic acid: No components found for: LACTATE EKG: All telemetry strips reviewed, no evidence of sustained ventricular tachycardia Results for orders placed or performed during the hospital encounter of 08/31/24 ECG 12 lead Narrative [address] [address] Test Date: 2024-08-31 Pat Name: OBIE SIMS Department: 1 Room: [facility] Gender: Male Dot Etcher Apprentice: Ti : 1955 Requested By: ZARIA THACKER Order Number: [id number] Sage LANDRY: Domingo Parks Measurements Intervals [place] Rate: 80 P: TN: 0 QRS: -32 QRSD: 147 T: 128 QT: 379 QTc: 439 Interpretive Statements ATRIAL FIBRILLATION LEFT AXIS DEVIATION [QRS AXIS < -30] LEFT BUNDLE BRANCH BLOCK [120+ ms QRS DURATION, 80+ ms Q/S IN V1/V2, 85+ ms R IN I/aVL/V5/V6] ROOM SUPERVISOR ECG 12 lead Narrative [facility] [address] [place] [address] Test Date: 2024-09-03 Pat Name: OBIE SIMS Department: 1 Room: [facility] Gender: Male Dot Etcher Apprentice: Hans Santiago : 1955 Requested By: NIKOLAS JIMÉNEZ Order Number: [id number] Reading MD: Armand Lentz Measurements Intervals [place] Rate: 101 P: TN: 0 QRS: -46 QRSD: 146 T: 132 QT: 360 QTc: 467 Interpretive Statements ATRIAL FIBRILLATION WITH RAPID VENTRICULAR RESPONSE WITH ABERRANT CONDUCTION OR VENTRICULAR PREMATURE COMPLEXES LEFT AXIS DEVIATION [QRS AXIS < -30] LEFT BUNDLE BRANCH BLOCK [120+ ms QRS DURATION, 80+ ms Q/S IN V1/V2, 85+ ms R IN I/aVL/V5/V6] ROOM SUPERVISOR Microbiology: No results found. However, due to the size of the patient record, not all encounters were searched.Please check Results Review for a complete set of results. Results for orders placed or performed during the hospital encounter of 08/31/24 (from the past week) CULTURE, BACTERIA BLOOD Collection Time: 09/03/24 12:23 PM Specimen: BLOOD Result Value Ref Range SPEC DESCRIPTION BLOOD SPECIAL REQUESTS NO SPECIAL REQUEST CULTURE RESULT NO GROWTH 1 DAY CULTURE, BACTERIA BLOOD X2 Collection Time: 08/31/24 10:34 AM Specimen: BLOOD Result Value Ref Range SPEC DESCRIPTION BLOOD SPECIAL REQUESTS NO SPECIAL REQUEST CULTURE RESULT NO GROWTH 4 DAYS and Results for orders placed or performed during the hospital encounter of 08/31/24 (from the past week) CULTURE, URINE Collection Time: 09/01/24 11:10 AM Specimen: URINE, CLEAN CATCH Result Value Ref Range SPEC DESCRIPTION URINE CLEAN CATCH SPECIAL REQUESTS NO SPECIAL REQUEST CULTURE RESULT NO GROWTH (< OR = 1,000 CFU/ML) Microbiology Results (last 14 days) Procedure Component Value Units Date/Time CULTURE, RESPIRATORY W/ GRAM STAIN [[id number]] Collected: 09/05/24 0740 Order Status: Sent Lab Status: No result Specimen: SPUTUM, EXPECTORATED MRSA PCR nares Screening [[id number]] Order Status: No result Lab Status: No result Specimen: NASAL Gastric PH [[id number]] Order Status: No result Lab Status: No result Specimen: GASTRIC FLUID CULTURE, BACTERIA BLOOD [[id number]] Collected: 09/03/24 1223 Order Status: Completed Lab Status: Preliminary result Updated: 09/04/24 2346 Specimen: BLOOD SPEC DESCRIPTION BLOOD SPECIAL REQUESTS NO SPECIAL REQUEST CULTURE RESULT NO GROWTH 1 DAY CULTURE, URINE [[id number]] Collected: 09/01/24 1110 Order Status: Completed Lab Status: Final result Updated: 09/03/24 0835 Specimen: URINE, CLEAN CATCH SPEC DESCRIPTION URINE CLEAN CATCH SPECIAL REQUESTS NO SPECIAL REQUEST CULTURE RESULT NO GROWTH (< OR = 1,000 CFU/ML) CULTURE, BACTERIA BLOOD X2 [[id number]] Collected: 08/31/24 1034 Order Status: Completed Lab Status: Preliminary result Updated: 09/04/24 2346 Specimen: BLOOD SPEC DESCRIPTION BLOOD SPECIAL REQUESTS NO SPECIAL REQUEST CULTURE RESULT NO GROWTH 4 DAYS Radiology: Imaging: ECG 12 lead Result Date: 09/03/[address] [address] Test Date: 2024-09-03 Pat Name: OBIE SIMS Department: 1 Room: [facility] Gender: Male Dot Etcher Apprentice: Hans Santiago : 1955 Requested By: NIKOLAS JIMÉNEZ Order Number: [id number] Reading MD: Measurements Intervals [place] Rate: 101 P: TN: 0 QRS: -46 QRSD: 146 T: 132 QT: 360 QTc: 467 Interpretive Statements ATRIAL FIBRILLATION WITH RAPID VENTRICULAR RESPONSE WITH ABERRANT CONDUCTION OR VENTRICULAR PREMATURE COMPLEXES LEFT AXIS DEVIATION [QRS AXIS < - 30] LEFT BUNDLE BRANCH BLOCK [120+ ms QRS DURATION, 80+ ms Q/S IN V1/V2, 85+ ms R IN I/aVL/V5/V6] XR CHEST PORTABLE Result Date: 09/03/[address] [address] Procedure(s):XR CHEST PORTABLE Date of service: 09/03/2024 9:32 [...] right shoulder. Postfusion changes lower cervical spine. IMPRESSION: Persistent bilateral alveolar and interstitial opacification concerning for pneumonia or pulmonary edema. Slight improvement as compared to August 31. Referred By: PROVIDER NON-STAFF Interpreted By: Klever Edwards MD, 09/03/2024 9:54 AM XR SPEECH SWALLOW SJS ONLY Result Date: 09/01/[address] [address] Date: 09/01/2024 4:54 PM Exam: Video assisted fluoroscopic swallow study. Comparison: None. Technique:Exam was performed in conjunction with speech pathology. Patient was placed in an upright lateral position. Pulse fluoroscopy time of 2.5 minutes. Radiation dose was K AR = 15.7mGy. The patient was evaluated swallowing honey barium consistency via spoon, straw, and open cup, nectar barium consistency via spoon,straw, and open cup, pudding barium consistency via spoon, and thin barium consistency via cup and straw. The patient was evaluated swallowing a cookie coated in barium followed by nectar barium consistency via open cup. The patient was evaluated swallowing a cookie coated in barium followed by honey barium consistency via spoon. Neutral, bolus hold, and chin tuck maneuvers were performed. History: Dysphasia. Findings: Honey barium consistency via spoon demonstrated premature spillage to the kaitlynn lecula before initiation of the swallow. No evidence [...] of laryngeal penetration. No evidence of aspiration. [place] barium consistency via spoon demonstrated premature spillage to the vallecula before initiation of swallow. No evidence of laryngeal penetration. No evidence of aspiration. [place] barium consistency via straw demonstrated premature spillage [...] This is consistent with impending silent aspiration. [place] barium consistency via open cup demonstrated premature spillage to the vallecula and piriform sinuses before initiation of swallow. No evidence of laryngeal penetration. No evidence of aspiration. [place] barium consistency via straw with a bolus hold maneuver demonstrated premature spillage to the vallecula and piriform sinuses before initiation of swallow. Laryngeal penetration without ejection was visualized as seen in series 14 image 14 through 35. A cough reflex wasnot elicited. This is consistent with impending silent [...] with impending silent aspiration. Thin barium consistency viastraw with a chin tuck maneuver demonstrated premature [...] initiation of swallow with a cookie coated inbarium. Premature spillage to the vallecula before initiation of the swallow with honey barium consistency via spoon. No evidence of laryngeal penetration or aspiration with a cookie coated in bariumor honey barium consistency via spoon. Impression: 1. [...] Munoz on 09/01/2024 4:53 PM Ordered By: JEAN LINDSAY Interpreted By: KESHA Munoz, 09/01/2024 4:53 PM ECG 12 lead Result Date: 09/01/2024 [address] [place] [address] Test Date: 2024-08-31 Pat Name: OBIE SIMS Department: 1 Room: [facility] Gender: Male Dot Etcher Apprentice: Tn : 1955 Requested By: ZARIA THACKER Order Number: [id number] Sage MD: Domingo Parks Measurements Intervals [place] Rate: 80 P: TN: 0 QRS: -32 QRSD: 147 T: 128 QT: 379 QTc: 439 Interpretive StatementsATRIAL FIBRILLATION LEFT AXIS DEVIATION [QRS AXIS < -30] LEFT BUNDLE BRANCH BLOCK [120+ ms QRS DURATION, 80+ ms Q/S IN V1/V2, 85+ ms R IN I/aVL/V5/V6] Electronically signed by Domingo Parks 09-01-2024 14:20:01 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 FINDINGS: The right kidney measures 11.6 cm in length, overall suboptimally visualized. The left kidney is not seen. No right-sided hydronephrosis. No definite right-sided focal renal lesion. Echogenicity of the right kidney is within normal limits. The urinary bladder is decompressed with Oneill catheter. IMPRESSION: 1. No right-sided hydronephrosis. 2. Nonvisualized left kidney and suboptimally visualized right kidney. 3. Decompressed urinary bladder with Oneill catheter. Referred By: PROVIDER NON-STAFF Interpreted By: Ever Love MD, 09/01/2024 2:04 AM USE ECHOCARDIOGRAM W CON Result Date: 08/31/2024 Echocardiography Report Pat.Name: OBIE SIMS Pat.ID: [id number] .Date: 08/31/2024 Refer.: [id number] NON-STAFF PROVIDER EWDPROV EWDPROV Exam Time: 1:13:00 PM Study Type:ECHO W/CONTRAST COMPLETEHeight: 168 cm Weight: 110 kg BSA: 2.17 m2 Age: 12 1955,69Y Sex: M BP: 117/53 HR: 84 bpm Sonogrphr: Jose Cruz Tejada [facility] Pat. Stat.:Inpatient Room: 622 CPT - 4: C8929 Reason for Study:Congestiveheart failure Procedures: 2D, M-mode, Doppler, Color Flow, Definity was used to enhance endocardialdefinition. Race: W ++++++++++++++++++++++++++++++++++++ SUMMARY: ++++++++++++++++++++++++++++++++++ ++ Technically difficult study. The left ventricular size is mildly enlarged. The calculated ejection fraction is 43%. The right ventricular size is moderately to severely enlarged. Right ventricularsystolic function is severely depressed. Right ventricular systolic pressure is 36 mmHg + estimatedRAP. No evidence of pericardial effusion. Moderate aortic valve stenosis. Mild tricuspid regurgitation. ++++++++++++++++++++++++++++++++++++ FINDINGS: ++++++++++++++++++++++++++++++++++++ LV: The left ventricular size is mildly enlarged. The left ventricular systolic function is mild to moderately d epressed. The calculated ejection fraction is 43%. No concentric left ventricular hypertrophy. Leftventricular diastolic function is not reliably assessed. RV: [...] evidence of tricuspid valve stenosis. ++++++++++++++++++++++++++++++++++++ MEASUREMENTS: +++++++++++++++++++++++++++ +++++++++ DOPPLER LVOT LVOTpkPG 4 mmHg LVOTmnPG 2 mmHg LVOTpkVel 96.4 cm/s (70- 110)+ LVOT SV 65 ml LVOT TVI 17.3 [...] Mass 2D Value 223 g LV Mass Pefhg3V Value 103 g/m2 RA Volume Atrial Schaffer 6.38 cm Atrial Schaffer 24.8 cm2 Atrial Schaffer 77.9 ml 2D Left Ventricle LVIDd 5.45 cm (3.6-5.2)* LV EF(Bi-Plane) 43.3 % (63- 77)* LVIDs 4.49 cm (2.3-3.9)* LVPW LVPWd 1.01 cm Ventricular Septum IVSd 1.08 cm Left Atrium LA a-p 5.17 cm(2.8-3.4)* Aorta Ao Asc 2.92 cm (zsc 1) LVOT LVOT 2.19 cm Ratios IVS LA Biplane LAVol I BP 47 ml/u5Bexpb Ventricle Right Ventricle 5.62 cm Right Ventricul 28.3 cm2 Right Ventricul 34.9 cm2 Right Ventricul 18.9 % MMODE Aorta Ao Rt 2.8 cm (2-3.7) <Electronic Signature> 08/31/2024 11:02 PM Brit Gonzáles M.D. XR CHEST PORTABLE Result Date: 08/31/[address] [address] Examination: XR CHEST PORTABLE Exam time: 08/31/2024 10:12 AM Clinical history: Cough Comparison: 07/31/2024 Technique: AP chest Findings: Shallow inspiration with patient slightly rotated. Post midline sternotomy changes with prosthetic valve. Borderline cardiomegaly similar to previous study. Persistent pulmonaryvascular congestion and interstitial edema very similar to the previous study. No new airspace consolidation. No pleural effusion. IMPRESSION: 1) Borderline cardiomegaly with persistent pulmonary vascular congestion and interstitial edema very similar to previous study. Ordered By: JEAN LINDSAY Interpreted By: Rigoberto Calderon MD, 08/31/2024 3:04 PM KEYONA MILLER MD 09/05/2024 7:50 AM ROOM SUPERVISOR * Ludy Morrell MD - 09/05/2024 7:31 AM CST [facility] Nephrology Progress Note Obie Sims is a 69-year-old male patient. HPI 69-year-old gentleman with past medical history significant for CKD stage III, atrial fibrillation,heart failure with reduced ejection fraction, coronary disease, aortic stenosis status post bioprosthetic aortic valve placement, pulmonary hypertension, COPD, obstructive sleep apnea, dyslipidemia, diabetes mellitus type 2, stroke, anxiety, hypertension, restless leg syndrome who presented due to BRITTANY and hyperkalemia. Patient had a fall on 08/18/2024, initially declined treatment but ultimately presented to outside ED 2 days ago with rib pain and knee pain. He also reported shortness of breath and lower extremity swelling. His creatinine was found to be 2 with potassium 5.9. Patient transferred to [facility] for BRITTANY and hyperkalemia management. Nephrology consulted to manage kidney disease Subjective On Levophed 2. Patient was intubated, on mechanical ventilation 3. good urine output, net -17 L since admission Review Of Systems Unable to obtain due to patient's condition Current Facility-Administered Medications Medication Dose Route Frequency Provider Last Rate Last Admin acetaminophen (TYLENOL) tablet 650 mg 650 mg Tube Q4H PRN Juan Francisco Rubi MD acetylcysteine 10 % (MUCOMYST) inhalation solution 200 mg 200 mg Nebulization 2 times daily Cheryl Lindsay MD 200 mg at 09/05/24 0728 albuterol (PROVENTIL) (2.5 MG/3ML) 0.083% nebulizer solution 2.5 mg 2.5 mg Nebulization Q2H PRN Juan Francisco Rubi MD 2.5 mg at 09/04/24 0724 allopurinol (ZYLOPRIM) tablet 200 mg 200 mg Tube Daily Juan Francisco Rubi MD 200 mg at 09/04/24 0949 aspirin chewable tablet 81 mg 81 mg Tube Daily Juan Francisco Rubi MD 81 mg at 09/04/24 0948 atorvastatin (LIPITOR) tablet 80 mg 80 mg Tube Nightly at bedtime Juan Francisco Rubi MD 80 mg at 09/04/242023 budesonide (PULMICORT) nebulizer solution 0.25 mg 0.25 mg Nebulization 2 times daily Juan Francisco Rubi MD 0.25 mg at 09/05/24 0728 clotrimazole-betamethasone (LOTRISONE) cream Topical Q12H KERVIN Christianson- Given at 09/04/242028 dexmedetomidine (PRECEDEX) 400 mcg in NS 100 mL IV infusion 0.1-1.4 mcg/kg/hr Intravenous Continuous Keyona Miller MD 9.53 mL/hr at 09/04/242337 0.4 mcg/kg/hr at 09/04/242337 docusate (COLACE) 50 MG/5ML liquid 100 mg 100 mg Tube BID Keyona Miller MD 100 mg at 09/04/242023 And senna 8.8 MG/5ML syrup 8.8 mg 5 mL Tube BID Keyona Miller MD 8.8 mg at 09/04/242023 famotidine (PF) (PEPCID) injection 20 mg 20 mg Intravenous Daily Keyona Miller MD Or famotidine (PEPCID) tablet 20 mg 20 mg Tube Daily Keyona Miller MD fentaNYL (SUBLIMAZE) 10 mcg/mL infusion 10-100 mcg/hr Intravenous Continuous Juan Francisco Rubi MD Paused at 09/04/24 1525 And fentaNYL (SUBLIMAZE) injection 25 mcg 25 mcg Intravenous Q10 Min PRN Juan Francisco Rubi MD folic acid (FOLVITE) tablet 1 mg 1 mg Tube Daily Juan Francisco Rubi MD 1 mg at 09/04/24 0949 genteal tears (ARTIFICIAL TEARS) 0.1-0.2-0.3 % ophthalmic solution 1 drop 1 drop Both Eyes Q4H Juan Francisco Rubi MD 1 drop at 09/05/24 0649 HYDROcodone-acetaminophen (NORCO) 5-325 MG tablet 1 tablet 1 tablet Tube Q4H PRN Juan Francisco Rubi MD hydrocortisone sodium succinate (Solu-CORTEF) 50 mg in sodium chloride bacteriostatic 0.9 % 1 mL injection 50 mg Intravenous Q6H Keyona Miller MD 50 mg at 09/05/24 0223 HYDROmorphone (DILAUDID) injection 0.2 mg 0.2 mg Intravenous Q2H PRN ALONDRA Christianson 0.2 mg at 09/04/24 1620 hydrOXYzine (ATARAX) tablet 50 mg 50 mg Per NG Tube TID PRN Juan Francisco Rubi MD insulin glargine (LANTUS) injection 40 Units 40 Units Subcutaneous Nightly at bedtime Keyona Abarca MD 40 Units at 09/04/24 2026 insulin lispro (HUMALOG/ADMELOG) injection 0-15 Units 0-15 Units Subcutaneous Q4H Keyona Miller MD 4 Units at 09/05/24 0424 ipratropium-albuterol (DUONEB) 0.5-2.5 (3) MG/3ML nebulizer solution 3 mL 3 mL Nebulization Q4H Juan Francisco Rubi MD 3 mL at 09/05/24 0728 methylPREDNISolone sodium succinate (SOLU-Medrol) injection 40 mg 40 mg Intravenous Daily Juan Francisco Rubi MD 40 mg at 09/04/24 0216 naLOXone (NARCAN) injection 0.4 mg 0.4 mg Intravenous PRN ALONDRA Christianson norepinephrine (LEVOPHED) 8 mg/250mL NS infusion 0.5-60 mcg/min Intravenous Continuous Juan Francisco Rubi MD Paused at 09/05/24 0621 nystatin (MYCOSTATIN) [id number] UNIT/ML suspension 5 mL 5 mL Oral 4x Daily Jean Lindsay MD 5 mL at 09/04/24 2025 nystatin (MYCOSTATIN) powder Topical BID ALONDRA Christianson Given at 09/04/24 1556 ondansetron (ZOFRAN) injection 4 mg 4 mg Intravenous Q8H PRN ALONDRA Christianson piperacillin-tazobactam (ZOSYN) 3.375 g in sodium chloride 0.9 % 50 mL IVPB 3.375 g Intravenous [id number] Lindsay MD 12.5 mL/hr at 09/05/24 0423 3.375 g at 09/05/24 0423 polyethylene glycol (GLYCOLAX) packet 17 g 17 g Tube Daily PRN Juan Francisco Rubi MD pregabalin (LYRICA) capsule 150 mg 150 mg Tube BID Juan Francisco Rubi MD 150 mg at 09/04/24 2024 propofol (DIPRIVAN) infusion 0-50 mcg/kg/min Intravenous Continuous Juan Francisco Rubi MD Paused at 09/04/24 1729 sertraline (ZOLOFT) tablet 50 mg 50 mg Tube Daily Juan Francisco Rubi MD 50 mg at 09/04/24 0948 TF peptide based high protein, low fat w/MCT (VITAL HP) liquid 25 mL/hr Per OG tube Continuous Keyona Miller MD 25 mL/hr at 09/05/24 0400 25 mL/hr at 09/05/24 0400 tiotropium (SPIRIVA RESPIMAT) 2.5 MCG/ACT inhaler 2 puff 2 puff Inhalation Daily ALONDRA Christianson 2 puff at 09/03/24 0759 traZODone (DESYREL) tablet 300 mg 300 mg Per NG Tube Nightly at bedtime Juan Francisco Rubi MD 300 mg at 09/04/242025 vancomycin pharmacy to dose placeholder Intravenous See Admin Instructions Jean Lindsay MD warfarin (COUMADIN) pharmacy to dose placeholder Oral See Admin Instructions Jean Lindsay MD Review of patient's allergies indicates: No Known Allergies Principal Problem: CHF exacerbation ([facility]) SNOMED CT(R): ACUTE EXACERBATION OF CHRONIC CONGESTIVE HEART FAILURE Filed Vitals: 09/05/24 0600 09/05/24 0615 09/05/24 0630 09/05/24 0645 BP: 117/70 125/74 106/50 112/53 Pulse: 87 83 82 79 Resp: 16 16 16 16 Temp: TempSrc: SpO2: 91% 91% 92% 91% Weight: Height: Last 3 Recorded Weights 09/02/24 0500 09/03/24 0423 09/04/24 1100 Weight: 100.2 kg (220 lb 14.4 oz) 95.3 kg (210 lb 1.6 oz) 88.8 kg (195 lb 12.3 oz) Intake/Output Summary (Last 24 hours) at 09/05/2024 0732 Last data filed at 09/05/2024 0700 Gross per 24 hour Intake 1580 ml Output 2800 ml Net -1220 ml Physical Exam: -GENERAL: Intubated and sedated -EYES: Extraocular movements intact. -ENT: Neck supple, Septum is midline. DRY oral mucosa. -LUNG: Mildly coarse bilaterally with expiratory wheezing on the right. -CVS: Regular rate, irregularly irregular rhythm, S1 and S2 normal, No murmurs. -ABDOMEN: Soft, nondistended, Nontender, Bowel sounds observed. -EXT: No bilateral lower Ext edema. Gauze wraps around bilateral lower legs. -NEURO: Alert, awake, oriented x3, No gross neuro deficit -SKIN: Skin color, texture, turgor normal. No rashes or lesions LABs Recent Labs Lab 09/01/24 0819 09/02/24 0030 09/02/24 0741 09/02/24 2325 09/03/24 0506 09/03/24 2029 09/04/24 0415 09/05/24 0400 NA 141 143 145 145 145 144 148* 152* K 4.9 4.2 4.1 4.1 4.1 4.2 3.5 3.2* CL 110 112 113 112 112 110 111 114 CO2 21.2 27.0 25.8 29.6 28.3 30.9 31.3 30.7 AGAP 9.8 4.0 6.2 3.4 4.7 3.1 5.7 7.3 BUN 70* 68* 68* 56* 56* 60* 64* 64* CR 2.28* 2.26* 2.00* 1.90* 1.81* 2.15* 2.29* 2.44* GLU 121* 282* 228* 238* 218* 442* 320* 191* CA 9.7 9.6 9.8 9.3 9.8 9.7 9.2 9.2 MAGNESIUM 2.5 -- -- -- -- 2.4 2.4 2.6 PHOS -- 3.6 -- 3.1 -- 4.1 4.1 2.8 Recent Labs Lab 08/31/24 1035 09/01/24 0819 09/02/24 0741 09/03/24 0506 09/03/24 2029 09/04/24 0415 09/05/24 0400 WBC 11.40* 11.52* 13.53* 13.49* 17.46* 14.31* 19.33* RBC 3.74* 4.03* 4.32* 4.17* 4.69 4.31* 4.30* HGB 10.9* 11.6* 12.5 11.9* 13.7 12.1 12.3 HCT 34.9* 36.8* 40.1 39.1 44.3 40.6 39.5 MCV 93.3 91.3 92.8 93.8 94.5 94.2 91.9 MCH 29.1 28.8 28.9 28.5 29.2 28.1 28.6 MCHC 31.2* 31.5* 31.2* 30.4* 30.9* 29.8* 31.1* PLT 85* 100* 130* 111* 131* 138* 137* RDW 16.1* 16.0* 15.9* 16.1* 16.2* 15.9* 15.9* MPV 11.8* 12.7* 12.9* 11.9* 13.2* 11.7* 12.9* Assessment/Plan: 69-year-old gentleman with past medical history significant for CKD stage III, atrial fibrillation,heart failure with reduced ejection fraction, coronary disease, aortic stenosis status post bioprosthetic aortic valve placement, pulmonary hypertension, COPD, obstructive sleep apnea, dyslipidemia, diabetes mellitus type 2, stroke, anxiety, hypertension, restless leg syndrome who presented due to BRITTANY and hyperkalemia. Patient had a fall on 08/18/2024, initially declined treatment but ultimately presented to outside ED 2 days ago with rib pain and knee pain. He also reported shortness of breath and lower extremity swelling. His creatinine was found to be 2 with potassium 5.9. Patient transferred to [facility] for BRITTANY and hyperkalemia management. BRITTANY on CKD stage III -Baseline creatinine 1.3-1.5. Patient also follows with Dr. Beltran -At outside hospital creatinine was 2.0, patient received fluids and creatinine increased to 2.8. This is likely related to hemodynamics/fluid overload. -Renal ultrasound showed suboptimal visualization of right kidney. No right sided hydronephrosis. No increase echogenicity. Right kidney 11.6 cm. Left kidney was not seen. -CPK normal, urinalysis 3+ blood and a mild protein WBCs 27 RBCs greater than 182, urine sodium of 88. BRITTANY serology negative -Initial chest x-ray showed pulmonary vascular congestion and interstitial edema -Initially diuresed with 80 of Lasix IVP daily and decreased to torsemide 20 mg daily on 09/02/2024 as patient did a significant response to diuretics (-9.5 L over 48 hours). He did begin did appear mildly intravascularly dry with a sodium of 145 and elevated BUN to creatinine ratio. Will need to continue to monitor diuretic dosage closely. -Creatinine currently 2.4 -Net -17 L since admission -Currently Lasix on hold as patient developing hypernatremia and worsening creatinine -Strict I's/O, avoid nephrotoxins 2. HTN. -On low-dose Levophed, defer to ICU team -Continue to avoid STEVIE/ARB 3. Anemia of chronic disease. Hemoglobin stable 4. Electrolytes. -Potassium 3.2, replete -Hyponatremia resolved and now developing hypernatremia. Continue to monitor closely. Lasix on hold 5. Renal osteodystrophy. Calcium and phosphorus levels are okay 6. Disposition stable Thank you for allowing me to participate in the care of this patient. We will continue to follow this patient with you. Please contact us with further questions. LUDY MORRELL MD 09/05/2024 ROOM SUPERVISOR * Teresa Padron RN - 09/05/2024 7:00 AM CST 09/05/24 0700 Interdisciplinary Group Conference Team Members Present Case/Care management;Nursing Patient Current Status Paient current status Inpatient Barriers to Discharge Inpatient Review Barriers to Discharge Inpatient Administering IV meds;Weaning for Oxygen in Process Weaning for Oxygen in Process follow up ett/vent, vent settings down to 40% and peep of 5. Administering IV meds follow up Weaning down levophed as tolerated, switched from fent/prop to precedex, PICC line inserted in R arm, heparin and lasix dc'd. Patient expects to be discharged to Patient expects to be discharged to: [facility]( SNF) PT rec for PT at SNF - pt choice list printed, will review with pt's daughter today. PASRR completed 09/04. ROOM SUPERVISOR * Mati Mohamud RN- - 09/05/2024 5:34 AM CST Problem: Discharge Planning Goal: Knowledge [...] of new skin breakdown Outcome: Progressing Problem: Reduced risk for falls/injury Goal: Reduced Risk for Falls/Injury Outcome: Progressing Goal: Reduced Risk of Confusion (Acute vs Chronic) Outcome: Progressing Goal: Reduced Risk of Symptomatic Depression Outcome: Progressing Goal: Reduced Risk of Altered Elimination Outcome: Progressing Goal: Reduced Risk of Dizziness/Vertigo/Balance Outcome: Progressing Goal: Reduced Risk of Polypharmacy Outcome: Progressing Problem: Infection - Risk of, Urinary Catheter-Associated Urinary Tract Infection Goal: Absence of Urinary Catheter Associated Urinary Tract (UTI) Infection Signs and Symptoms Outcome: Progressing Problem: Restraint Pyw-Rvv-hpnvtsk/Non-Self Destructive Behavior Goal: Absence of injury Outcome: Progressing Goal: Release of restraints Outcome: Progressing Problem: Fluid Volume - Imbalanced Goal: Absence of imbalanced fluid volume signs and symptoms Outcome: Progressing Problem: Gas Exchange - Impaired Goal: Adequate oxygenation Outcome: Progressing Problem: Infection - Risk of, Septic Shock Goal: Absence of infection signs and symptoms Outcome: Progressing Problem: Infection - Risk of, Urinary Catheter-Associated Urinary Tract Infection Goal: Absence of infection signs and symptoms Outcome: Progressing Problem: Infection - Risk of, Ventilator-Associated Pneumonia Goal: Absence of infection signs and symptoms Outcome: Progressing Problem: Pain - Acute Goal: Achieve acceptable pain level Outcome: Progressing Goal: Reduced pain sensation Outcome: Progressing Problem: Skin Integrity - Risk of, Impaired Goal: Skin integrity intact Outcome: Progressing Problem: Tissue Perfusion - Cardiopulmonary, Altered Goal: Circulatory function within specified parameters Outcome: Progressing Problem: Venous Thromboembolism - Risk of Goal: Absence of deep venous thrombosis Outcome: Progressing Problem: Infection - Risk of, Central Venous Catheter-Associated Bloodstream Infection Goal: Absence of Central Venous Catheter Associated Bloodstream Infection Signs and Symptoms Outcome: Progressing Problem: Swallowing Goal: STG - Pt will participate in Modified Barium Swallow Study to assess physiology and anatomy of swallow and to determine appropriate diet and/or rehab exercises Outcome: Not Met ROOM SUPERVISOR * Catrachita Triana RN - 09/04/2024 6:37 PM CSTSummary: Shift summary Weaning down levophed as tolerated, switched from fent/prop to precedex, PICC line inserted in R arm, heparin and lasix dc'd, vent settings down to 40% and peep of 5. Problem: Discharge Planning Goal: Knowledge of discharge [...] of new skin breakdown Outcome: Progressing Problem: Reduced risk for falls/injury Goal: Reduced Risk for Falls/Injury Outcome: Progressing Goal: Reduced Risk of Confusion (Acute vs Chronic) Outcome: Progressing Goal: Reduced Risk of Symptomatic Depression Outcome: Progressing Goal: Reduced Risk of Altered Elimination Outcome: Progressing Goal: Reduced Risk of Dizziness/Vertigo/Balance Outcome: Progressing Goal: Reduced Risk of Polypharmacy Outcome: Progressing Problem: Infection - Risk of, Urinary Catheter-Associated Urinary Tract Infection Goal: Absence of Urinary Catheter Associated Urinary Tract (UTI) Infection Signs and Symptoms Outcome: Progressing Problem: Restraint Drn-Luo-pfmwtmk/Non-Self Destructive Behavior Goal: Absence of injury Outcome: Progressing Goal: Release of restraints Outcome: Progressing Problem: Fluid Volume - Imbalanced Goal: Absence of imbalanced fluid volume signs and symptoms Outcome: Progressing Problem: Gas Exchange - Impaired Goal: Adequate oxygenation Outcome: Progressing Problem: Infection - Risk of, Septic Shock Goal: Absence of infection signs and symptoms Outcome: Progressing Problem: Infection - Risk of, Urinary Catheter-Associated Urinary Tract Infection Goal: Absence of infection signs and symptoms Outcome: Progressing Problem: Infection - Risk of, Ventilator-Associated Pneumonia Goal: Absence of infection signs and symptoms Outcome: Progressing Problem: Pain - Acute Goal: Achieve acceptable pain level Outcome: Progressing Goal: Reduced pain sensation Outcome: Progressing Problem: Skin Integrity - Risk of, Impaired Goal: Skin integrity intact Outcome: Progressing Problem: Tissue Perfusion - Cardiopulmonary, Altered Goal: Circulatory function within specified parameters Outcome: Progressing Problem: Venous Thromboembolism - Risk of Goal: Absence of deep venous thrombosis Outcome: Progressing Problem: Infection - Risk of, Central Venous Catheter-Associated Bloodstream Infection Goal: Absence of Central Venous Catheter Associated Bloodstream Infection Signs and Symptoms Outcome: Progressing ROOM SUPERVISOR * Keyona Miller MD - 09/04/2024 3:09 PM CST Request for Documentation Clarification Obie Kern ; VISIT [id number] Query Response Sent: 09/04/24 15:08 WAX ROOM SUPERVISOR From: Keyona Miller MD Query question: Based on medical judgment and consideration of these clinical indicators, the following condition was evaluated, monitored and/or treated during this episode of care Provider response: Cardiogenic shock ROOM SUPERVISOR Original Query Sent: 09/04/24 14:53 WAX ROOM SUPERVISOR From: Debbi Lemos MBBS, CCDS To: Keyona Miller MD By submitting this query, we are seeking [...] treated during this episode of care * Cardiogenic shock * Shock unspecified * Shock due to * Hypotension due to * Other Clinical Information Assessment and Plan: Acute respiratory failure with hypoxia needing intubation, mechanical ventilation Possible CHF exacerbation versus aspiration event BRITTANY on CKD 3B, suspected cardiorenal Thrombocytopenia, mild, monitor Acute on chronic systolic and right-sided heart failure with reduced ejection fraction Ground-level fall, generalized weakness and rib fractures Pneumonia, HCAP versus aspiration Coagulopathy, supratherapeutic INR, improving Oral thrush Diabetes mellitus type 2, uncontrolled Hyperlipidemia Hypertension Chronic atrial fibrillation status post ablation, on warfarin Pulmonary hypertension Status post aortic valve replacement with bioprosthetic valve COPD Obstructive sleep apnea Gout History of CVA Peripheral arterial disease PLAN: Cardiovascular: Keep MAP >65 mmHg or as needed Holding Coreg due to low blood pressure (Progress notes 09/04, Keyona Miller MD) MAP 50 09/04/2024 10:15 MAP 52 09/04/2024 09:15 Rx: IV norepinephrine 8 mg (09/03-now) ROOM SUPERVISOR * Nati Cole - 09/04/2024 2:21 PM CST Warfarin - Pharmacy Dosing Service Note Obie Sims is a 69-year-old male for which pharmacy has been consulted to dose warfarin for A.fib. Goal INR is 2-3. Warfarin Order Set Activated: Yes Warfarin Start Date: continuation from home Past Medical History: Diagnosis Date Abnormal ankle brachial index (STELLA) Acute on chronic heart failure, unspecified heart failure type ([facility]) Anxiety Aortic valve stenosis Arthritis Asthma, mild persistent ([facility]) 04/06/2021 Atrial fibrillation ([facility]) s/p PVI/[facility] 10/2015 Bilateral leg pain Carotid disease, bilateral ([facility]) CHF (congestive heart failure) ([facility]) Claudication ([facility]) COPD (chronic obstructive pulmonary disease) ([facility]) Coronary artery disease Diabetes mellitus, type II ([facility]) Edema 04/19/2018 2+ pitting History of blood transfusion Hyperlipidemia Hypertension LV dysfunction Non-pressure chronic ulcer of left calf limited to breakdown of skin ([facility]) 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 breakdown of skin ([facility]) Osteoarthritis PAD (peripheral artery disease) ([facility]) Pneumonia Restless leg syndrome S/P aortic valve replacement with bioprosthetic valve 2013 SOB (shortness of breath) Stroke ([facility]) Varicose veins of bilateral lower extremities with other complications Weight gain with edema Home warfarin dose: warfarin 2 mg po daily per med rec Bridging agent: none Vitamin K use: No; (if yes, indicate date, dose, and route) Diet: PO Recent Labs Lab 09/03/24 0506 09/03/24202809/04/24 0415 HGB 11.9* 13.7 12.1 HCT 39.1 44.3 40.6 PLT 111* 131* 138* AST 23 21 16 ALT 21 24 21 ALKP 129* 143* 118* ALB 3.0* 3.0* 2.5* Date INR Dose Received 08/28 5.4 per [facility] paperwork - 08/29 - - 08/30 2.7 2 mg at [facility] 08/31 1.8 - 09/01 1.6 2 mg 09/02 1.9 2 mg 09/03 2.6 hold 09/04 3.7 hold Drug interactions: Potential to increase INR: - Potential to decrease INR: - Potential to increase the risk of bleeding: aspirin, sertraline Warfarin Sensitivity: moderate, based on the following risk factors: thrombocytopenia, end state renal disease or Scr > 2.2, and age 66-79. Hgb/Hct today are stable INR today is supratherapeutic, with a large jump today The plan is to hold once tonight and recheck an INR in the morning to assist with subsequent dosing. Pharmacy will continue to monitor labs and notes daily, adjusting the dose as clinically appropriate. Thank you for the consult. Pharmacy to dose per Dr. Neftali COLE, pharmacy tech customer service Phone number: [phone] 09/04/2024 2:21 PM Cosigned by Misael Oh, PharmD at 09/04/2024 4:29 PM WAX ROOM SUPERVISOR ROOM SUPERVISOR ROOM SUPERVISOR * Nati Cole - 09/04/2024 2:07 PM CST Vancomycin Pharmacokinetic Progress Note Day 1 of therapy Obie Sims is a 69-year-old male for which pharmacy has been consulted to dose vancomycin for Pneumonia. Other antibiotics ordered include zosyn. Allergies: Review of patient's allergies indicates: No Known Allergies Height: 1.676 m (5' 6 ) Weight: 88.8 kg (195 lb 12.3 oz) Body mass index is 31.6 kg/m??. Temp (24 hr max): Temp Av.5 ??F (36.4 ??C) Min: 97.3 ??F (36.3 ??C) Max: 98.1 ??F (36.7 ??C) Today's labs and vitals: Lab Results Component Value Date/Time WBC 14.31 (H) 09/04/2024 04:15 AM WBC 17.46 (H) 09/03/2024 08:29 PM WBC 13.49 (H) 09/03/2024 05:06 AM WBC 13.53 (H) 09/02/2024 07:41 AM WBC 11.52 (H) 09/01/2024 08:19 AM Lab Results Component Value Date/Time CR 2.29 (H) 09/04/2024 04:15 AM CR 2.15 (H) 09/03/2024 08:29 PM CR 1.81 (H) 09/03/2024 05:06 AM CR 1.90 (H) 09/02/2024 11:25 PM CR 2.00 (H) 09/02/2024 07:41 AM CrCl = estimated creatinine clearance is 31.3 mL/min (A) (by C-G formula based on SCr of 2.29 mg/dL(H)). Intake/Output Summary (Last 24 hours) at 09/04/2024 1407 Last data filed at 09/04/2024 1100 Gross per 24 hour Intake 1069 ml Output 4270 ml Net -3201 ml Pertinent Cultures: Date Drawn Site Organism Pertinent Sensitivity 08/31 BCx NGTD 09/01 UCx NGTD 09/03 BCx NGTD Levels: Date Time Level AUC Dose Comments Assessment: Obie Sims is a 69-year-old male who is currently receiving vancomycin. AUC goal is 400 - 600 Current AUC level is Pending Renal function is Worsening. Scr 1.81 -> 2.29 Plan: Antibiotic Plan: hold dose Next level due: 09/05 @ 1200 Pharmacy will continue to follow cultures, clinical status, and appropriateness of therapy. Thank you for the consult. Pharmacy Consult per Dr. Neftali COLE, Physician General Internal Medicine Phone: [phone] 09/04/2024 2:07 PM Cosigned by Misael Oh, PharmD at 09/04/2024 4:29 PM WAX ROOM SUPERVISOR ROOM SUPERVISOR ROOM SUPERVISOR ROOM SUPERVISOR * Fiorella Archibald RD - 09/04/2024 10:49 AM CST CLINICAL DIETITIAN ASSESSMENT NUTRITION ASSESSMENT Past Medical History: Diagnosis Date Abnormal ankle brachial index (STELLA) Acute on chronic heart failure, unspecified heart failure type ([facility]) Anxiety Aortic valve stenosis Arthritis Asthma, mild persistent ([facility]) 04/06/2021 Atrial fibrillation ([facility]) s/p PVI/[facility] 10/2015 Bilateral leg pain Carotid disease, bilateral ([facility]) CHF (congestive heart failure) ([facility]) Claudication ([facility]) COPD (chronic obstructive pulmonary disease) ([facility]) Coronary artery disease Diabetes mellitus, type II ([facility]) Edema 04/19/2018 2+ pitting History of blood transfusion Hyperlipidemia Hypertension LV dysfunction Non-pressure chronic ulcer of left calf limited to breakdown of skin ([facility]) 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 breakdown of skin ([facility]) Osteoarthritis PAD (peripheral artery disease) ([facility]) Pneumonia Restless leg syndrome S/P aortic valve replacement with bioprosthetic valve 2013 SOB (shortness of breath) Stroke ([facility]) Varicose veins of bilateral lower extremities with other complications Weight gain with edema Initial History (09/04/2024): Registered Dietitian (RD) completing an initial assessment secondary to physician consult for manage tube feedings. Patient is a 69-year-old male admitted secondary to CHF exacerbation ([facility]) [I50.9]. On admission, patient presented with BRITTANY on CKD III, acute respiratory failure with hypoxia. Concern for aspiration, CYTOLOGY TEACHER assessed patient who was found to have moderate oropharyngeal dysphagia per MOUSTAPHA on 09/01/24. CYTOLOGY TEACHER recommended soft and bite sized solids with moderately thickened liquids on 09/01/24. Nephrology assisting in BRITTANY on CKD management. Rapid response called for patient on 09/03/24 and patient was emergently intubated 2/2 hypoxemia and respiratory distress. Initiating tube feeds at trickle rate on this date per physician. Weight history (09/04/2024): Daughter at bedside reports patient has had no nutrition related changes in his weight over the past year, states weight fluctuates often due to fluid balance. Daughter reports patient's driest weight is around 210-220 lbs, however states patient's weight appears to bethe driest he's been over the past year. At bedside, patient weighs 195 lbs. No nutrition relatedconcerns regarding weight history at this time. Wt Readings from Last 7 Encounters: 09/03/24 95.3 kg (210 lb 1.6 oz) 08/24/24 106.6 kg (235 lb) 08/03/24 103 kg (227 lb) 05/02/24 99.6 kg (219 lb 9.6 oz) 04/17/24 97.6 kg (215 lb 3.2 oz) 04/03/24 97.5 kg (215 lb) 01/31/24 100.7 kg (222 lb) Diet history (09/04/2024): Patient lives with his daughter, who prepares his dinner for him every night such as pasta, pizza, white chicken, hot dogs/brats. Patient may prepare a light breakfast or lunch in the afternoon such as oatmeal or a cold sandwich. Patient snacks on pretzels, popcorn, and sometimes honey buns throughout the day. Patient drinks coffee all day. No nutrition related concerns at this time. Food allergies/intolerances: NKFA per patient's daughter Cultural/Zoroastrianism food preferences: None reported by patient's daughter Food Insecurity: No Food Insecurity (08/31/2024) Hunger Vital Sign Worried About Running Out of Food in the Last Year: Never true Ran Out of Food in the Last Year: Never true Cardiorespiratory: on vent; MAP > 65 mmHg over the past 24 hours Neuro: Sedated Edema: +1 BLE edema noted per EHR GI: abdomen rounded and semi-firm with positive bowel sounds per stamp presser; last BM documented on 09/04/24 (soft/small; last significant BM on 09/02/24) Chewing/swallowing problems: none 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 Labs: Will provide free water flush to assist in managing hypernatremia. Recent Labs Lab 09/03/24 1055 09/03/24 1603 09/03/24 1722 09/03/24 2004 09/03/24 2123 09/04/24 0008 09/04/24 0613 GLUCOSEPOC 210* 225* 315* 367* 298* 358* 282* Recent Labs Lab 09/01/24 0819 09/02/24 0030 09/02/24 2325 09/03/24 0506 09/03/249 09/04/24 0415 NA 141 < > 145 145 144 148* K 4.9 < > 4.1 4.1 4.2 3.5 MAGNESIUM 2.5 -- -- -- 2.4 2.4 PHOS -- < > 3.1 -- 4.1 4.1 BUN 70* < > 56* 56* 60* 64* CR 2.28* < > 1.90* 1.81* 2.15* 2.29* GFREST 30* < > 37* 40* 32* 30* GLU 121* < > 238* 218* 442* 320* < > = values in this interval not displayed. HGB A1C Date Value Ref Range Status 09/01/2024 7.0 (H) <5.7 % Final 02/17/2023 8.0 (H) <5.7 % Final Meds: Propofol @ 11.44 mL/hr (302 kcal/day) Medications identified for TF interaction are bolded below. Per pharmacy, patient will not receive warfarin today. acetylcysteine 10 % 200 mg Nebulization 2 times daily allopurinol 200 mg Tube Daily aspirin 81 mg Tube Daily atorvastatin 80 mg Tube Nightly at bedtime budesonide 0.25 mg Nebulization 2 times daily clotrimazole-betamethasone Topical Q12H docusate 100 mg Tube BID And senna 5 mL Tube BID famotidine 20 mg Intravenous 2 times per day Or famotidine 20 mg Tube 2 times per day folic acid 1 mg Tube Daily artificial tears 1 drop Both Eyes Q4H hydrocortisone 50 mg Intravenous Q6H insulin glargine 40 Units Subcutaneous Nightly at bedtime insulin lispro 0-15 Units Subcutaneous Q4H ipratropium-albuterol 3 mL Nebulization Q4H methylPREDNISolone 40 mg Intravenous Daily nystatin 5 mL Oral 4x Daily nystatin Topical BID piperacillin-tazobactam 3.375 g Intravenous Q8H pregabalin 150 mg Tube BID sertraline 50 mg Tube Daily tiotropium 2 puff Inhalation Daily traZODone 300 mg Per NG Tube Nightly at bedtime vancomycin 1,000 mg Intravenous Q24H vancomycin pharmacy to dose Intravenous See Admin Instructions warfarin (COUMADIN) pharmacy to dose Oral See Admin Instructions dexmedetomidine fentaNYL 50 mcg/hr (09/04/24 0053) norepinephrine 3 mcg/min (09/04/24 0946) propofol 30 mcg/kg/min (09/04/24 0856) Anthropometrics: Admission weight: 167.6 kg (Date: 109.8; Method: Bed) Last 5 Recorded Weights 08/31/24 0947 09/02/24 0500 09/03/24 0423 09/04/24 1100 Weight: 109.8 kg (242 lb 1 oz) 100.2 kg (220 lb 14.4 oz) 95.3 kg (210 lb 1.6 oz) 88.8 kg (195 lb 12.3 oz) Weight status: Weighed patient at bedside, current weight appears to be patient's driest weight this admission. Per I/O, patient is negative 16 L since admission which accounts for the majority of weight lost this admission. Height: 167.6 cm Actual Body Weight (ABW): 88.8 kg [place] Body Weight (IBW): 64.4 kg (ABW is 138% of IBW) Dosing Weight (DW): 88.8 kg Body Mass Index (BMI): 31.6 kg/m?? (Obesity Class I) Estimated Nutrient Needs: Calories: 977-1243 kcal/day based on 11-14 kcal/kg, using ABW Protein: 129 gm/day based on 2 gm/kg, using IBW Carbohydrate: 122-155 gm/day based on 50% of total kcal from carbohydrate Fluid: 1500 mL/day based on minimum intake recommendation for older adults Current diet order: No diet orders on file Current diet appropriate? Yes; recent mechanical intubation Current intake sufficient to meet nutritional needs? No. Today is day 1 of NPO/CL status. Reason/Indication for NPO/CL: respiratory failure requiring mechanical ventilation. Patient was previously ondysphagia diet from 09/01/24- 09/04/24. Only 2 meals documented since admission, 100% of meals consumed. Fluid intake appears inadequate to meet estimated fluid intake requirement. Providing free water flush with TF to provide hydration. Pain affecting PO intake? N/A Nutrition Education: Discussed nutrition plan with patient's daughter at bedside NUTRITION DIAGNOSIS Inadequate oral intake related to decreased ability to consume sufficient nutrients by mouth as evidenced by oral diet meeting <25 % of estimated needs due to recent mechanical intubation. NUTRITION INTERVENTION Nutrition prescription: Tube Feeding: Vital HP via OG tube. Continuous infusion at 25 mL/hr. Free Water Flushes: 100 mL every 2 hours Nutrient provision from recommended TF (based on 22 hour infusion and dosing weight of 88.8 kg): ADILENE: 852 kcal/day; 550 kcal from TF and 302 kcal from Propofol (10 kcal/kg/day) PRO: 48 gm/day (0.7 gm/kg/day using IBW of 64.4 kg) CHO: 61 gm/day (29% of kcal provided) FLUID: 1662 mL/day free water from TF and free water flushes Recommended TF + current Propofol infusion meets 87% estimated kcal needs and 37% estimated proteinneeds with free water adequate for hydration. Plan: 1. Initiate continuous TF with Vital HP via OG tube at 25 mL/hr. 2. Free water flush: 100 mL every 2 hours. 3. Labs: BMP, Mg and Phos daily. Replete electrolytes as indicated. 4. Weigh patient at least three times weekly. Discharge nutrition plan: Discharge needs assessed. Will provide/update discharge instructions as needed. MONITORING/EVALUATION 09/04/2024 Goals: 1. TF will be infusing per RD recommendation at follow up. FIORELLA ARCHIBALD RD, LDN ROOM SUPERVISOR * Keyona Miller MD - 09/04/2024 10:27 AM CST Images from the original note were not included. Critical Care Medicine [facility], [place], [place] [employer] (Doc Halo) 15/03: RENEE Lora Engine Oiler On-call Progress note Reason for ICU admission: Acute respiratory failure with hypoxia Subjective Patient follow commands off sedation. This morning became hypotensive after increase in sedation toassist for ultrasound. On Levophed 7 mcg. Adjusted mechanical ventilation. Good urine output. Input/Output 09/03 0700 - 09/04 0659 In: 589 [P.O.:120; I.V.:396] Out: 4270 [Urine:4270] Intake/Output Summary (Last 24 hours) at 09/04/2024 1028 Last data filed at 09/04/2024 1015 Gross per 24 hour Intake 669 ml Output 4895 ml Net -4226 ml Principal Problem: CHF exacerbation (CMS/HCC HHS/HCC) HPI: Hospital day: 4 ICU day: 13h History is obtained from chart review and patient's family History is limited due to patient wearing BiPAP and in respiratory distress Obie Sims is a 69-year-old male admitted 08/31/2024 with past medical history of diabetes mellitus, hypertension, hyperlipidemia atrial fibrillation on warfarin, pulmonary hypertension, bioprosthetic aortic valve, COPD, SHEELA. Echocardiogram in February 2024 showed EF of 40 to 45% with bioprosthetic aortic valve Patient was admitted to hospitalist service on 08/31 as a transfer due to BRITTANY and hyperkalemia. He was seen by cardiology and nephrology and was being diuresed. On 09/03, rapid response was called as patient had worsening hypoxia concern for wide-complex arrhythmia start (noticed to be frequent PVCs on telemetry review). Patient was hypoxic in 60s initially requiring increased oxygen via nasal cannula and then placement of BiPAP at FiO2 of 100%. Patient's original status CODE STATUS is DNR however on clarification by hospitalist he was okay with intubation. This was discussed with patient's family and they were in agreement with intubation. He was transferred to [facility] ICU and emergently intubated with rapid sequence induction. Lab workup showed pH of 7.25, pCO2 74, creatinine up from 1.8-2.15, blood sugar 442, proBNP 28,000, troponin 115. Patient was receiving Lasix drip set 5 mg/h and it was increased to 10 mg/h and additional dose of IV Diuril given. On arrival to ICU, postintubation patient was very hypoxic requiring high FiO2 and PEEP with elevated peak and plateau pressure. His hypoxia improved after ventilator adjustments and decreasing the tidal volume. Assessment and Plan: Acute respiratory failure with hypoxia needing intubation, mechanical ventilation Possible CHF exacerbation versus aspiration event BRITTANY on CKD 3B, suspected cardiorenal Thrombocytopenia, mild, monitor Acute on chronic systolic and right-sided heart failure with reduced ejection fraction Ground-level fall, generalized weakness and rib fractures Pneumonia, HCAP versus aspiration Coagulopathy, supratherapeutic INR, improving Oral thrush Diabetes mellitus type 2, uncontrolled Hyperlipidemia Hypertension Chronic atrial fibrillation status post ablation, on warfarin Pulmonary hypertension Status post aortic valve replacement with bioprosthetic valve COPD Obstructive sleep apnea Gout History of CVA Peripheral arterial disease PLAN: Neurology/Sedation: Monitor mental status Precedex. RASS: 0 Cardiovascular: Keep MAP >65 mmHg or as needed Entresto on hold in setting of BRITTANY Lasix as needed. Cardiology following Continue aspirin, statin Holding Coreg due to low blood pressure Respiratory: Continue Mechanical Ventilation, Low TV, High PEEP Strategy Mucomyst and DuoNebs Blood gas every 4 hours and adjust mechanical ventilation Gastrointestinal: Tube feeds Renal/: Monitor UOP and Cr Avoid nephrotoxins Nephrology following Fluid and Electrolytes: Monitor and replace Infectious Disease: F/u cultures, continue antibiotics Continue vancomycin and Zosyn Blood cultures: No growth till date Urine cultures negative Endocrine: BG goal of <180 Uncontrolled, starting Lantus 25 units daily and sliding scale Hematology/Oncology: Transfuse for Hb <7, Platelet <10K Musculoskeletal: Continue pain management PT/OT consultation Code Status: DNR, okay to intubate, discussed with family Discussed clinical course and updated family at bedside, all questions answered Feeding: Tube feeds Agitation: None Sedation: Fentanyl propofol, Precedex Thromboprophylaxis: INR therapeutic. Start heparin drip once INR subtherapeutic. Extubation: Daily SBT Restraints: Yes Foleys: Yes Lines and Tubes: PIV x 3 Activity: As tolerated, as directed by PT/oT Glycemic control: BG goal of <180 GI prophylaxis: IV pepcid Disposition: Continue ICU Status Critical Care time spent in evaluation and management of a critically ill or injured patient is 75 minutes, such that the critical illness or injury acutely impairs one or more organ system: (Neurology, cardiovascular, respiratory, renal, ID, endocrine) such that there is a high probability of imminent or life-threatening deterioration in the patient's condition needing immediate attention or presence of critical care physician near bedside for the above time . Complex decisions were made to manipulate and support multiple organ systems. The time listed is exclusive of any procedures which may have been performed. Critical care time includes time spent at bedside performing history and physical exam, time spent researching patient prior to interaction with patient, time spent discussing findings and treatment plan with patient and/or family, time spent discussing patient with consultants and colleagues, time spent reviewing pertinent laboratory and radiographic evaluations, time spent re-evaluating patient, or time spent discussing patient with nursing staff. All of the patient's and his family's questions were answered, and the plan of care going forward was outlined to them. KEYONA MILLER MD 09/04/2024 10:27 AM Past Medical Hx: As below Past surgical Hx: As below Home Medications: As below Family History: As below Personal and social hx: As below Past Medical History: Diagnosis Date Abnormal ankle brachial index ([facility]) Acute on chronic heart failure, unspecified heart failure type ([facility]) Anxiety Aortic valve stenosis Arthritis Asthma, mild persistent ([facility]) 04/06/2021 Atrial fibrillation ([facility]) s/p PVI/[facility] 10/2015 Bilateral leg pain Carotid disease, bilateral ([facility]) CHF (congestive heart failure) ([facility]) Claudication ([facility]) COPD (chronic obstructive pulmonary disease) ([facility]) Coronary artery disease Diabetes mellitus, type II ([facility]) Edema 04/19/2018 2+ pitting History of blood transfusion Hyperlipidemia Hypertension LV dysfunction Non-pressure chronic ulcer of left calf limited to breakdown of skin ([facility]) 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 breakdown of skin ([facility]) Osteoarthritis PAD (peripheral artery disease) ([facility]) Pneumonia Restless leg syndrome S/P aortic valve replacement with bioprosthetic valve 2013 SOB (shortness of breath) Stroke (CMS/HCC HHS/HCC) Varicose veins of bilateral lower extremities with other complications Weight gain with edema Past Surgical History: Procedure Laterality Date APPENDECTOMY CARDIAC VALVE REPLACEMENT 2000 CARDIAC VALVE REPLACEMENT 2013 CARDIOVERSION EXTERNAL 10/01/2015 CARDIOVERSION EXTERNAL 04/14/2012 COLONOSCOPY N/A 03/18/2021 COLONOSCOPY (Incomplete) performed by Kilo Navarro MD at [facility] OR COLONOSCOPY N/A 01/27/2022 COLONOSCOPY WITH COLD SNARE POLYPECTOMY performed by Kilo Navarro MD at [facility] OR HIP ARTHROPLASTY Left KNEE ARTHROPLASTY Bilateral REPAIR ROTATOR CUFF W/ OR W/O ACROMIOPLASTY Left USE NEMO+CARDIOVERSION 03/24/2016 XA A-FIB ABLATION 10/23/2015 PVI/[facility] Family History Problem Relation Name Age of Onset TB Mother No current facility-administered medications on file prior to encounter. Current Outpatient Medications on File Prior to Encounter Medication Sig Dispense Refill albuterol sulfate HFA 108 (90 Base) MCG/ACT inhaler Inhale 2 puffs into the lungs every 4 (four) hours as needed. allopurinol 300 MG tablet Take 1 tablet (300 mg total) by mouth daily. atorvastatin 80 MG tablet Take 1 tablet (80 mg total) by mouth nightly at bedtime. carvedilol (COREG) 3.125 MG tablet Take 1 tablet (3.125 mg total) by mouth 2 (two) times daily. clotrimazole-betamethasone (LOTRISONE) cream 1 Application every 12 (twelve) hours. docusate sodium 100 MG capsule Take 1 capsule (100 mg total) by mouth as needed for Constipation. folic acid (FOLVITE) 1 MG tablet Take 1 tablet (1 mg total) by mouth daily. furosemide (LASIX) 80 MG tablet Take 1 tablet (80 mg total) by mouth daily. 30 tablet 0 glipiZIDE XL (GLUCOTROL XL) 5 MG [...] tablet (25 mg total) by mouth daily. nystatin (MYCOSTATIN) powder Apply topically 2 (two) times daily. Apply to groin, under abdominal fold 15 g 0 pantoprazole EC 40 MG tablet Take 1 tablet (40 mg total) by mouth daily. pregabalin (LYRICA) 150 MG capsule Take 1 capsule (150 mg total) by mouth 2 (two) times daily. sacubitril-valsartan (ENTRESTO) 24-26 MG tablet Take 1 tablet by mouth 2 (two) times daily. 60 tablet 11 Semaglutide (OZEMPIC, 1 MG/DOSE, SC) Inject into the skin once a week. sertraline 50 MG tablet Take 1 tablet (50 mg total) by mouth daily. traZODone (DESYREL) 150 MG tablet Take 2 tablets (300 mg total) by mouth nightly at bedtime. TRELEGY ELLIPTA 100-62.5-25 MCG/ACT AEROSOL POWDER, BREATH ACTIVATED Inhale 1 puff into the lungs daily. warfarin (COUMADIN) 4 MG tablet Take 1 tablet (4 mg total) by mouth daily. Monitor INR every 3-4 days and follow up closely with PCP (Patient taking differently: Take 0.5 tablets (2 mg total) by mouth daily. Monitor INR every 3-4 days and follow up closely with PCP) 30 tablet 0 Review of patient's allergies indicates: No Known Allergies Social History Socioeconomic History Marital status: Spouse name: Ema Number of children: 2 Years of education: Not on file Highest education level: Not on file Occupational History Employer: NOT EMPLOYED Tobacco Use Smoking status: Former Passive exposure: Past Smokeless tobacco: Former Types: Chew Vaping Use Vaping status: Never Used Substance and Sexual Activity Alcohol use: Yes Comment: 4 beers per week Drug use: No Sexual [...] Social History Narrative Not on file Social Drivers of Health Financial Resource Strain: Low Risk (08/31/2024) Overall Financial Resource Strain (CARDIA) Difficulty of Paying Living Expenses: Not very hard Food Insecurity: No Food Insecurity (08/31/2024) Hunger Vital Sign Worried About Running Out of Food in the Last Year: Never true Ran Out of Food in the Last Year: Never true Transportation Needs: No Transportation Needs (08/31/2024) PRAPARE - Transportation Lack of Transportation (Medical): No Lack of Transportation (Non-Medical): No Physical Activity: Not on file Stress: Patient Declined (02/16/2023) [employer] [place] [employer] - Occupational Stress Questionnaire Feeling of Stress : Patient declined Social Connections: Patient Declined (02/16/2023) Social Connection and Isolation Panel [NHANES] Frequency of Communication with Friends and Family: Patient declined Frequency of Social Gatherings with Friends and Family: Patient declined Attends Zoroastrianism Services: Patient declined Active Member of Clubs or Organizations: Patient declined Attends Club or Organization Meetings: Patient declined Marital Status: Patient declined Recent Concern: Social Connections - Moderately Isolated (02/06/2023) Social Connection and Isolation Panel [NHANES] Frequency of Communication with Friends and Family: Twice a week Frequency of Social Gatherings with Friends and Family: Twice a week Attends Zoroastrianism Services: More than 4 times per year Active Member of Clubs or Organizations: No Attends Club or Organization Meetings: Never Marital Status: Intimate Partner Violence: Not At Risk (08/31/2024) Humiliation, Afraid, Rape, and Kick questionnaire Fear of Current or Ex-Partner: No Emotionally Abused: No Physically Abused: No Sexually Abused: No Housing Stability: Low Risk (08/31/2024) Housing Stability Vital Sign Unable to Pay for Housing in the Last Year: No Number of Times Moved in the Last Year: 0 Homeless in the Last Year: No Current inpatient medications: Current Facility-Administered Medications: acetaminophen (TYLENOL) tablet 650 mg, 650 mg, Tube, Q4H PRN, Juan Francisco Rubi MD acetylcysteine 10 % (MUCOMYST) inhalation solution 200 mg, 200 mg, Nebulization, 2 times daily, Jean Lindsay MD, 200 mg at 09/04/24 0717 albuterol (PROVENTIL) (2.5 MG/3ML) 0.083% nebulizer solution 2.5 mg, 2.5 mg, Nebulization, Q2H PRN,Juan Francisco Rubi MD, 2.5 mg at 09/04/24 0724 allopurinol (ZYLOPRIM) tablet 200 mg, 200 mg, Tube, Daily, Juan Francisco Rubi MD, 200 mg at 09/04/24 0949 aspirin chewable tablet 81 mg, 81 mg, Tube, Daily, Juan Francisco Rubi MD, 81 mg at 09/04/24947 atorvastatin (LIPITOR) tablet 80 mg, 80 mg, Tube, Nightly at bedtime, Juan Francisco Rubi MD budesonide (PULMICORT) nebulizer solution 0.25 mg, 0.25 mg, Nebulization, 2 times daily, Juan Francisco Rubi MD, 0.25 mg at 09/04/24 0717 clotrimazole-betamethasone (LOTRISONE) cream, , Topical, Q12H, Zaria Thacker, [facility], Given at 09/04/24 1007 dexmedetomidine (PRECEDEX) 400 mcg in NS 100 mL IV infusion, 0.1-1.4 mcg/kg/hr, Intravenous, Continuous, Keyona Miller MD docusate (COLACE) 50 MG/5ML liquid 100 mg, 100 mg, Tube, BID, 100 mg at 09/04/24947 AND senna8.8 MG/5ML syrup 8.8 mg, 5 mL, Tube, BID, Keyona Miller MD, 8.8 mg at 09/04/24947 famotidine (PF) (PEPCID) injection 20 mg, 20 mg, Intravenous, 2 times per day, 20 mg at 09/03/242 OR famotidine (PEPCID) tablet 20 mg, 20 mg, Tube, 2 times per day, Juan Francisco Rubi MD, 20 mg at09/04/24947 fentaNYL (SUBLIMAZE) injection 50 mcg, 50 mcg, Intravenous, Once AND fentaNYL (SUBLIMAZE) 10 mcg/mL infusion, 10-100 mcg/hr, Intravenous, Continuous, Last Rate: 5 mL/hr at 09/04/2452, 50 mcg/hr at 09/04/2452 AND fentaNYL (SUBLIMAZE) injection 25 mcg, 25 mcg, Intravenous, Q10 Min PRN, Juan Francisco Rubi MD folic acid (FOLVITE) tablet 1 mg, 1 mg, Tube, Daily, Juan Francisco Rubi MD, 1 mg at 09/04/24 0949 genteal tears (ARTIFICIAL TEARS) 0.1-0.2-0.3 % ophthalmic solution 1 drop, 1 drop, Both Eyes, Q4H, Juan Francisco Rubi MD, 1 drop at 09/04/24 1006 HYDROcodone-acetaminophen (NORCO) 5-325 MG tablet 1 tablet, 1 tablet, Tube, Q4H PRN, Juan Francisco Rubi MD hydrocortisone sodium succinate (Solu-CORTEF) 50 mg in sodium chloride bacteriostatic 0.9 % 1 mL injection, 50 mg, Intravenous, Q6H, Keyona Miller MD, 50 mg at 09/04/24 0949 HYDROmorphone (DILAUDID) injection 0.2 mg, 0.2 mg, Intravenous, Q2H PRN, ALONRDA Christianson hydrOXYzine (ATARAX) tablet 50 mg, 50 mg, Per NG Tube, TID PRN, Juan Francisco Rubi MD insulin glargine (LANTUS) injection 40 Units, 40 Units, Subcutaneous, Nightly at bedtime, Keyona Miller MD insulin lispro (HUMALOG/ADMELOG) injection 0-15 Units, 0-15 Units, Subcutaneous, Q4H, Keyona Abarca MD ipratropium-albuterol (DUONEB) 0.5-2.5 (3) MG/3ML nebulizer solution 3 mL, 3 mL, Nebulization, Q4H,Juan Francisco Rubi MD, 3 mL at 09/04/24 0716 methylPREDNISolone sodium succinate (SOLU-Medrol) injection 40 mg, 40 mg, Intravenous, Daily, Juan Francisco Rubi MD, 40 mg at 09/04/24 0216 naLOXone (NARCAN) injection 0.4 mg, 0.4 mg, Intravenous, PRN, ALONDRA Christianson norepinephrine (LEVOPHED) 8 mg/250mL NS infusion, 0.5-60 mcg/min, Intravenous, Continuous, Juan Francisco Rubi MD, Last Rate: 5.63 mL/hr at 09/04/24 0946, 3 mcg/min at 09/04/24 0946 nystatin (MYCOSTATIN) 928815 UNIT/ML suspension 5 mL, 5 mL, Oral, 4x Daily, Jean Lindsay MD, 5mL at 09/04/24 0948 nystatin (MYCOSTATIN) powder, , Topical, BID, ALONDRA Christianson, Given at 09/03/24 0828 ondansetron (ZOFRAN) injection 4 mg, 4 mg, Intravenous, Q8H PRN, ALONDRA Christianson piperacillin-tazobactam (ZOSYN) 3.375 g in sodium chloride 0.9 % 50 mL IVPB, 3.375 g, Intravenous, Q8H, Jean Lindsay MD, Last Rate: 12.5 mL/hr at 09/04/24 0517, 3.375 g at 09/04/24 0517 polyethylene glycol (GLYCOLAX) packet 17 g, 17 g, Tube, Daily PRN, Juan Francisco Rubi MD pregabalin (LYRICA) capsule 150 mg, 150 mg, Tube, BID, Juan Francisco Rubi MD, 150 mg at 09/04/24 0947 propofol (DIPRIVAN) infusion, 0-50 mcg/kg/min, Intravenous, Continuous, Juan Francisco Rubi MD, Last Rate: 17.15 mL/hr at 09/04/24 0856, 30 mcg/kg/min at 09/04/24 0856 sertraline (ZOLOFT) tablet 50 mg, 50 mg, Tube, Daily, Juan Francisco Rubi MD, 50 mg at 09/04/24 0948 tiotropium (SPIRIVA RESPIMAT) 2.5 MCG/ACT inhaler 2 puff, 2 puff, Inhalation, Daily, ALONDRA Christianson, 2 puff at 09/03/24 0759 traZODone (DESYREL) tablet 300 mg, 300 mg, Per NG Tube, Nightly at bedtime, Juan Francisco Rubi MD vancomycin 1000 mg in NS 250 mL IVPB, 1,000 mg, Intravenous, Q24H, Jean Lindsay MD Pharmacy to dose vancomycin, , , Once AND vancomycin pharmacy to dose placeholder, , Intravenous, See Admin Instructions, Jean Lindsay MD Pharmacy to dose warfarin (COUMADIN), , , Once AND warfarin (COUMADIN) pharmacy to dose placeholder, , Oral, See Admin Instructions, Jean Lindsay MD Subjective: 12 point review of systems was completed and negative except findings reported above in ICU timeline and HPI. Objective: Body mass index is 33.91 kg/m??. Current vital signs Blood pressure 132/83, pulse 79, temperature 97.5 ??F (36.4 ??C), temperature source Tympanic, resp. rate 22, height 1.676 m (5' 6 ), weight 95.3 kg (210 lb 1.6 oz), SpO2 99%. Vitals: 09/04/24 0946 BP: 132/83 Pulse: 79 Resp: Temp: SpO2: 24 hour BP and temperature range @[id number]@ Temp (24hrs), Av.6 ??F (36.4 ??C), Min:97.3 ??F (36.3 ??C), Max:98.1 ??F (36.7 ??C) Input/Output 09/03 0700 - 09/04 0659 In: 589 [P.O.:120; I.V.:396] Out: 4270 [Urine:4270] Intake/Output Summary (Last 24 hours) at 09/04/2024 1027 Last data filed at 09/04/2024 1015 Gross per 24 hour Intake 669 ml Output 4895 ml Net -4226 ml Physical exam: Gen: Patient is very lethargic, difficult to arouse intubated later on and sedated Neuro: Moving all extremities, no deficit appreciated Head: Atraumatic and normocephalic Eyes: Pupils equal round and reactive, no jaundice ENT: Moist mucous membrane Neck: JVD + Cardiac: Irregular, S1, S2, no added sounds Pulm: Bilateral air entry, bibasilar crackles Abdomen: Soft and nontender, bowel sounds present Skin: No rash or erythema Extremities: Trace pedal edema Data Review: Recent Labs 09/03/24 0506 09/03/24202809/04/24 0415 WBC 13.49* 17.46* 14.31* HGB 11.9* 13.7 12.1 HCT 39.1 44.3 40.6 MCV 93.8 94.5 94.2 PLT 111* 131* 138* RBC 4.17* 4.69 4.31* Recent Labs Lab 09/03/24 0506 09/03/24202809/04/24 0415 NA 145 144 148* K 4.1 4.2 3.5 CL 112 110 111 CO2 28.3 30.9 31.3 AGAP 4.7 3.1 5.7 BUN 56* 60* 64* CR 1.81* 2.15* 2.29* GLU 218* 442* 320* CA 9.8 9.7 9.2 TP 8.3* 9.0* 7.6 ALB 3.0* 3.0* 2.5* TBIL 1.7* 1.4* 1.3* ALKP 129* 143* 118* AST 23 21 16 ALT 21 24 21 Coagulation: Recent Labs 09/02/24 0741 09/03/24 0050 09/03/24 0506 09/04/24 0415 INR 1.9* 3.3* 2.6* 3.7* Troponins: Recent Labs Lab 09/03/24202809/04/24 0415 09/04/24 0800 TROP 115* 145* 136* ABG: Lab Results Component Value Date BASEEXCESS 2.0 09/03/2024 VBG: No components found for: PHMIXEDVEN , [id number] , [id number] , [id number] , [id number] Lactic acid: No components found for: LACTATE EKG: All telemetry strips reviewed, no evidence of sustained ventricular tachycardia Results for orders placed or performed during the hospital encounter of 08/31/24 ECG 12 lead Narrative [place] [address] [place] [address] Test Date: 2024-08-31 Pat Name: OBIE SIMS Department: 1 Room: [facility] Gender: Male Dot Etcher Apprentice: Ti : 1955 Requested By: ZARIA THACKER Order Number: [id number] Reading MD: Domingo Parks Measurements Intervals [place] Rate: 80 P: TN: 0 QRS: -32 QRSD: 147 T: 128 QT: 379 QTc: 439 Interpretive Statements ATRIAL FIBRILLATION LEFT AXIS DEVIATION [QRS AXIS < -30] LEFT BUNDLE BRANCH BLOCK [120+ ms QRS DURATION, 80+ ms Q/S IN V1/V2, 85+ ms R IN I/aVL/V5/V6] ROOM SUPERVISOR ECG 12 lead Narrative [place] [address] [place] [address] Test Date: 2024-09-03 Pat Name: OBIE SIMS [facility]: [facility] Gender: Male Dot Etcher Apprentice: Hans Santiago : 1955 Requested By: NIKOLAS JIMÉNEZ Order Number: [id number] Reading MD: Armand Lentz Measurements Intervals [place] Rate: 101 P: TN: 0 QRS: -46 QRSD: 146 T: 132 QT: 360 QTc: 467 Interpretive Statements ATRIAL FIBRILLATION WITH RAPID VENTRICULAR RESPONSE WITH ABERRANT CONDUCTION OR VENTRICULAR PREMATURE COMPLEXES LEFT AXIS DEVIATION [QRS AXIS < -30] LEFT BUNDLE BRANCH BLOCK [120+ ms QRS DURATION, 80+ ms Q/S IN V1/V2, 85+ ms R IN I/aVL/V5/V6] ROOM SUPERVISOR Microbiology: No results found. However, due to the size of the patient record, not all encounters were searched.Please check Results Review for a complete set of results. Results for orders placed or performed during the hospital encounter of 08/31/24 (from the past week) CULTURE, BACTERIA BLOOD Collection Time: 09/03/24 12:23 PM Specimen: BLOOD Result Value Ref Range SPEC DESCRIPTION BLOOD SPECIAL REQUESTS NO SPECIAL REQUEST CULTURE RESULT NO GROWTH <24 HRS CULTURE, BACTERIA BLOOD X2 Collection Time: 08/31/24 10:34 AM Specimen: BLOOD Result Value Ref Range SPEC DESCRIPTION BLOOD SPECIAL REQUESTS NO SPECIAL REQUEST CULTURE RESULT NO GROWTH 3 DAYS and Results for orders placed or performed during the hospital encounter of 08/31/24 (from the past week) CULTURE, URINE Collection Time: 09/01/24 11:10 AM Specimen: URINE, CLEAN CATCH Result Value Ref Range SPEC DESCRIPTION URINE CLEAN CATCH SPECIAL REQUESTS NO SPECIAL REQUEST CULTURE RESULT NO GROWTH (< OR = 1,000 CFU/ML) Microbiology Results (last 14 days) Procedure Component Value Units Date/Time MRSA PCR nares Screening [[id number]] Order Status: No result Lab Status: No result Specimen: NASAL Gastric PH [[id number]] Order Status: No result Lab Status: No result Specimen: GASTRIC FLUID CULTURE, BACTERIA BLOOD [[id number]] Collected: 09/03/24 1223 Order Status: Completed Lab Status: Preliminary result Updated: 09/03/241845 Specimen: BLOOD SPEC DESCRIPTION BLOOD SPECIAL REQUESTS NO SPECIAL REQUEST CULTURE RESULT NO GROWTH <24 HRS CULTURE, RESPIRATORY W/ GRAM STAIN [[id number]] Order Status: No result Lab Status: No result Specimen: SPUTUM, EXPECTORATED CULTURE, URINE [[id number]] Collected: 09/01/24 1110 Order Status: Completed Lab Status: Final result Updated: 09/03/24 08 Specimen: URINE, CLEAN CATCH SPEC DESCRIPTION URINE CLEAN CATCH SPECIAL REQUESTS NO SPECIAL REQUEST CULTURE RESULT NO GROWTH (< OR = 1,000 CFU/ML) CULTURE, BACTERIA BLOOD X2 [[id number]] Collected: 08/31/24 1034 Order Status: Completed Lab Status: Preliminary result Updated: 09/03/241845 Specimen: BLOOD SPEC DESCRIPTION BLOOD SPECIAL REQUESTS NO SPECIAL REQUEST CULTURE RESULT NO GROWTH 3 DAYS Radiology: Imaging: ECG 12 lead Result Date: 09/03/[address] [address] Test Date: 2024-09-03 Pat Name: OBIE SIMS Department: 1 Room: [facility] Gender: Male Dot Etcher Apprentice: Hans Santiago : 1955 Requested By: NIKOLAS JIMÉNEZ Order Number: [id number] Reading MD: Measurements Intervals [place] Rate: 101 P: TN: 0 QRS: -46 QRSD: 146 T: 132 QT: 360 QTc: 467 Interpretive Statements ATRIAL FIBRILLATION WITH RAPID VENTRICULAR RESPONSE WITH ABERRANT CONDUCTION OR VENTRICULAR PREMATURE COMPLEXES LEFT AXIS DEVIATION [QRS AXIS < - 30] LEFT BUNDLE BRANCH BLOCK [120+ ms QRS DURATION, 80+ ms Q/S IN V1/V2, 85+ ms R IN I/aVL/V5/V6] XR CHEST PORTABLE Result Date: 09/03/[address] [address] Procedure(s):XR CHEST PORTABLE Date of service: 09/03/2024 9:32 [...] right shoulder. Postfusion changes lower cervical spine. IMPRESSION: Persistent bilateral alveolar and interstitial opacification concerning for pneumonia or pulmonary edema. Slight improvement as compared to August 31. Referred By: PROVIDER NON-STAFF Interpreted By: Klever Edwards MD, 09/03/2024 9:54 AM XR SPEECH SWALLOW SJS ONLY Result Date: 09/01/[address] [address] Date: 09/01/2024 4:54 PM Exam: Video assisted fluoroscopic swallow study. Comparison: None. Technique:Exam was performed in conjunction with speech pathology. Patient was placed in an upright lateral position. Pulse fluoroscopy time of 2.5 minutes. Radiation dose was K AR = 15.7mGy. The patient was evaluated swallowing honey barium consistency via spoon, straw, and open cup, nectar barium consistency via spoon,straw, and open cup, pudding barium consistency via spoon, and thin barium consistency via cup and straw. The patient was evaluated swallowing a cookie coated in barium followed by nectar barium consistency via open cup. The patient was evaluated swallowing a cookie coated in barium followed by honey barium consistency via spoon. Neutral, bolus hold, and chin tuck maneuvers were performed. History: Dysphasia. Findings: Honey barium consistency via spoon demonstrated premature spillage to the kaitlynn lecula before initiation of the swallow. No evidence [...] of laryngeal penetration. No evidence of aspiration. [place] barium consistency via spoon demonstrated premature spillage to the vallecula before initiation of swallow. No evidence of laryngeal penetration. No evidence of aspiration. [place] barium consistency via straw demonstrated premature spillage [...] This is consistent with impending silent aspiration. [place] barium consistency via open cup demonstrated premature spillage to the vallecula and piriform sinuses before initiation of swallow. No evidence of laryngeal penetration. No evidence of aspiration. [place] barium consistency via straw with a bolus hold maneuver demonstrated premature spillage to the vallecula and piriform sinuses before initiation of swallow. Laryngeal penetration without ejection was visualized as seen in series 14 image 14 through 35. A cough reflex wasnot elicited. This is consistent with impending silent [...] with impending silent aspiration. Thin barium consistency viastraw with a chin tuck maneuver demonstrated premature [...] initiation of swallow with a cookie coated inbarium. Premature spillage to the vallecula before initiation of the swallow with honey barium consistency via spoon. No evidence of laryngeal penetration or aspiration with a cookie coated in bariumor honey barium consistency via spoon. Impression: 1. [...] Munoz on 09/01/2024 4:53 PM Ordered By: JEAN LNIDSAY Interpreted By: KESHA Munoz, 09/01/2024 4:53 PM ECG 12 lead Result Date: 09/01/2024 [address] [place] [address] Test Date: 2024-08-31 Pat Name: OBIE SIMS Department: 1 Room: [facility] Gender: Male Dot Etcher Apprentice: Ti : 1955 Requested By: ZARIA THACKER Order Number: [id number] Reading MD: Domingo Parks Measurements Intervals [place] Rate: 80 P: TN: 0 QRS: -32 QRSD: 147 T: 128 QT: 379 QTc: 439 Interpretive StatementsATRIAL FIBRILLATION LEFT AXIS DEVIATION [QRS AXIS < -30] LEFT BUNDLE BRANCH BLOCK [120+ ms QRS DURATION, 80+ ms Q/S IN V1/V2, 85+ ms R IN I/aVL/V5/V6] Electronically signed by Domingo Parks 09-01-2024 14:20:01 WAX ROOM SUPERVISOR [employer] Result Date: 09/01/[address] [address] EXAMINATION: Renal ultrasound EXAM DATE/TIME: 08/31/2024 10:03 PM REASON FOR EXAM: BRITTANY COMPARISON: CT abdomen pelvis 11/17/2023, renal ultrasound 08/06/2023 TECHNIQUE: Transabdominal ultrasoundevaluation of the bilateral kidneys and bladder was performed for analysis of grayscale and color Doppler imaging characteristics. FINDINGS: The right kidney measures 11.6 cm in length, overall suboptimally visualized. The left kidney is not seen. No right-sided hydronephrosis. No definite right-sided focal renal lesion. Echogenicity of the right kidney is within normal limits. The urinary bladder is decompressed with Oneill catheter. IMPRESSION: 1. No right-sided hydronephrosis. 2. Nonvisualized left kidney and suboptimally visualized right kidney. 3. Decompressed urinary bladder with Oneill catheter. Referred By: PROVIDER NON-STAFF Interpreted By: Ever Love MD, 09/01/2024 2:04 AM USE ECHOCARDIOGRAM W CON Result Date: 08/31/2024 Echocardiography Report Pat.Name: OBIE SIMS Pat.ID: [id number] .Date: 08/31/2024 Refer.: [id number] NON-STAFF PROVIDER EWDPROV EWDPROV Exam Time: 1:13:00 PM Study Type:ECHO W/CONTRAST COMPLETEHeight: 168 cm Weight: 110 kg BSA: 2.17 m2 Age: 12 1955,69Y Sex: M BP: 117/53 HR: 84 bpm Sonogrphr: Jose Cruz Tejada RDCS Pat. Stat.:Inpatient Room: 622 CPT - 4: C8929 Reason for Study:Congestive heart failure Procedures: 2D, M-mode, Doppler, Color Flow, Definity was used to enhance endocardial definition. Race: W ++++++++++++++++++++++++++++++++++++ SUMMARY: +++++++++++++++++++++++++++++++++ +++ Technically difficult study. The left ventricular size [...] left ventricular systolic function is mild to moderatelydepressed. The calculated ejection fraction is 43%. No concentric left ventricular hypertrophy. Left ventricular diastolic function is not reliably assessed. RV: The right ventricular size is moderately to severely enlarged. Right ventricular systolic function is severely depressed. Right ventricular systolic pressure is 36 mmHg + estimated RAP. LA: The left atrial volume is moderately increased (42- 48 ml/M2). RA: Right atrial size is moderately [...] leaflets. PV: No evidence of pulmonic valve st enosis. No evidence of pulmonic regurgitation. TV: Mild [...] Mass 2D Value 223 g LV Mass Woouh6L Value 103 g/m2 RA Volume Atrial Schaffer [...] Signature> 08/31/2024 11:02 PM Brit Gonzáles M.D. XR CHEST PORTABLE Result Date: 08/31/[address] [address] Examination: XR CHEST PORTABLE Exam time: 08/31/2024 10:12 AM Clinical history: Cough Comparison: 07/31/2024 Technique: AP chest Findings: Shallow inspiration with patient slightly rotated. Post midline sternotomy changes with prosthetic valve. Borderline cardiomegaly similar to previous study. Persistent pulmonaryvascular congestion and interstitial edema very similar to the previous study. No new airspace consolidation. No pleural effusion. IMPRESSION: 1) Borderline cardiomegaly with persistent pulmonary vascular congestion and interstitial edema very similar to previous study. Ordered By: JEAN LINDSAY Interpreted By: Rigoberto Calderon MD, 08/31/2024 3:04 PM KEYONA MILLER MD 09/04/2024 10:27 AM ROOM SUPERVISOR * Ludy Morrell MD - 09/04/2024 7:44 AM CST [facility] Nephrology Progress Note Obie Sims is a 69-year-old male patient. HPI 69-year-old gentleman with past medical history significant for CKD stage III, atrial fibrillation,heart failure with reduced ejection fraction, coronary disease, aortic stenosis status post bioprosthetic aortic valve placement, pulmonary hypertension, COPD, obstructive sleep apnea, dyslipidemia, diabetes mellitus type 2, stroke, anxiety, hypertension, restless leg syndrome who presented due to BRITTANY and hyperkalemia. Patient had a fall on 08/18/2024, initially declined treatment but ultimately presented to outside ED 2 days ago with rib pain and knee pain. He also reported shortness of breath and lower extremity swelling. His creatinine was found to be 2 with potassium 5.9. Patient transferred to [facility] for BRITTANY and hyperkalemia management. Nephrology consulted to manage kidney disease Subjective On low-dose Levophed 2. Patient was intubated, on mechanical ventilation 3. good urine output, net -16 L since admission Review Of Systems Unable to obtain due to patient's condition Current Facility-Administered Medications Medication Dose Route Frequency Provider Last Rate Last Admin acetaminophen (TYLENOL) tablet 650 mg 650 mg Tube Q4H PRN Juan Francisco Rubi MD acetylcysteine 10 % (MUCOMYST) inhalation solution 200 mg 200 mg Nebulization 2 times daily Cheryl Lindsay MD 200 mg at 09/04/24 0717 albuterol (PROVENTIL) (2.5 MG/3ML) 0.083% nebulizer solution 2.5 mg 2.5 mg Nebulization Q2H PRN Juan Francisco Rubi MD 2.5 mg at 09/04/24 0724 allopurinol (ZYLOPRIM) tablet 200 mg 200 mg Tube Daily Juan Francisco Rubi MD aspirin chewable tablet 81 mg 81 mg Tube Daily Juan Francisco Rubi MD atorvastatin (LIPITOR) tablet 80 mg 80 mg Tube Nightly at bedtime Juan Francisco Rubi MD budesonide (PULMICORT) nebulizer solution 0.25 mg 0.25 mg Nebulization 2 times daily Juan Francisco Rubi MD 0.25 mg at 09/04/24 0717 clotrimazole-betamethasone (LOTRISONE) cream Topical Q12H KERVIN Christianson- Given at 09/03/24 0831 famotidine (PF) (PEPCID) injection 20 mg 20 mg Intravenous 2 times per day Juan Francisco Rubi MD 20 mg at 09/03/24 2202 Or famotidine (PEPCID) tablet 20 mg 20 mg Tube 2 times per day Juan Francisco Rubi MD fentaNYL (SUBLIMAZE) injection 50 mcg 50 mcg Intravenous Once Juan Francisco Rubi MD And fentaNYL (SUBLIMAZE) 10 mcg/mL infusion 10-100 mcg/hr Intravenous Continuous Juan Francisco Rubi MD 5 mL/hr at 09/04/24 0053 50 mcg/hr at 09/04/24 0053 And fentaNYL (SUBLIMAZE) injection 25 mcg 25 mcg Intravenous Q10 Min PRN Juan Francisco Rubi MD folic acid (FOLVITE) tablet 1 mg 1 mg Tube Daily Juan Francisco Rubi MD furosemide (LASIX) 100 mg in sodium chloride 0.9 % 100 mL (1 mg/mL) infusion 10 mg/hr Intravenous Continuous Juan Francisco Rubi MD 10 mL/hr at 09/04/24 0512 10 mg/hr at 09/04/24 0512 genteal tears (ARTIFICIAL TEARS) 0.1-0.2-0.3 % ophthalmic solution 1 drop 1 drop Both Eyes Q4H Juan Francisco Rubi MD 1 drop at 09/04/24 0519 heparin (porcine) injection 1,900 Units 20 Units/kg Intravenous PRN Juan Francisco Rubi MD heparin (porcine) injection 3,800 Units 40 Units/kg Intravenous PRN Juan Francisco Rubi MD heparin 25,000 units in 250 mL 0.45% NaCl (100 units/mL) infusion 0-20 Units/kg/hr Intravenous Continuous Juan Francisco Rubi MD 17.2 mL/hr at 09/04/24 0705 18 Units/kg/hr at 09/04/24 0705 HYDROcodone-acetaminophen (NORCO) 5-325 MG tablet 1 tablet 1 tablet Tube Q4H PRN Juan Francisco Rubi MD HYDROmorphone (DILAUDID) injection 0.2 mg 0.2 mg Intravenous Q2H PRN ALONDRA Christianson hydrOXYzine (ATARAX) tablet 50 mg 50 mg Per NG Tube TID PRN Juan Francisco Rubi MD insulin glargine (LANTUS) injection 25 Units 25 Units Subcutaneous Nightly at bedtime Juan Francisco Rubi MD insulin lispro (HUMALOG/ADMELOG) injection 0-12 Units 0-12 Units Subcutaneous 4x Daily AC and at bedtime Juan Francisco Rubi MD 7 Units at 09/04/24 0637 ipratropium-albuterol (DUONEB) 0.5-2.5 (3) MG/3ML nebulizer solution 3 mL 3 mL Nebulization Q4H Juan Francisco Rubi MD 3 mL at 09/04/24 0716 methylPREDNISolone sodium succinate (SOLU-Medrol) injection 40 mg 40 mg Intravenous Daily Juan Francisco Rubi MD 40 mg at 09/04/24 0216 naLOXone (NARCAN) injection 0.4 mg 0.4 mg Intravenous PRN Zaria R Shari, ACNP-BC norepinephrine (LEVOPHED) 8 mg/250mL NS infusion 0.5-60 mcg/min Intravenous Continuous Juan Francisco Rubi MD 1.88 mL/hr at 09/04/24 0424 1 mcg/min at 09/04/24 0424 nystatin (MYCOSTATIN) 380936 UNIT/ML suspension 5 mL 5 mL Oral 4x Daily Jean Lindsay MD 5 mL at 09/03/24 1245 nystatin (MYCOSTATIN) powder Topical BID ALONDRA Christianson Given at 09/03/24 0828 ondansetron (ZOFRAN) injection 4 mg 4 mg Intravenous Q8H PRN KERVIN Christianson-MIAN piperacillin-tazobactam (ZOSYN) 3.375 g in sodium chloride 0.9 % 50 mL IVPB 3.375 g Intravenous [id number] Lindsay MD 12.5 mL/hr at 09/04/24 0517 3.375 g at 09/04/24 0517 polyethylene glycol (GLYCOLAX) packet 17 g 17 g Tube Daily PRN Juan Francisco Rubi MD pregabalin (LYRICA) capsule 150 mg 150 mg Tube BID Juan Francisco Rubi MD propofol (DIPRIVAN) infusion 0-50 mcg/kg/min Intravenous Continuous Juan Francisco Rubi MD 11.44 mL/hr at09/04/24 0650 20 mcg/kg/min at 09/04/24 0650 sertraline (ZOLOFT) tablet 50 mg 50 mg Tube Daily Juan Francisco Rubi MD tiotropium (SPIRIVA RESPIMAT) 2.5 MCG/ACT inhaler 2 puff 2 puff Inhalation Daily RAVEN ChristiansonBC 2 puff at 09/03/24 0759 traZODone (DESYREL) tablet 300 mg 300 mg Per NG Tube Nightly at bedtime Juan Francisco Rubi MD vancomycin 1000 mg in NS 250 mL IVPB 1,000 mg Intravenous Q24H Jean Lindsay MD vancomycin pharmacy to dose placeholder Intravenous See Admin Instructions Jean Lindsay MD warfarin (COUMADIN) pharmacy to dose placeholder Oral See Admin Instructions Jean Lindsay MD Review of patient's allergies indicates: No Known Allergies Principal Problem: CHF exacerbation (CMS/[facility]) SNOMED CT(R): ACUTE EXACERBATION OF CHRONIC CONGESTIVE HEART FAILURE Filed Vitals: 09/04/24 0630 09/04/24 0645 09/04/24 0700 09/04/24 0726 BP: 96/55 99/69 118/55 Pulse: 86 77 78 Resp: 22 22 22 Temp: TempSrc: SpO2: 96% 97% 100% 99% Weight: Height: Last 3 Recorded Weights 08/31/24 0947 09/02/24 0500 09/03/24 0423 Weight: 109.8 kg (242 lb 1 oz) 100.2 kg (220 lb 14.4 oz) 95.3 kg (210 lb 1.6 oz) Intake/Output Summary (Last 24 hours) at 09/04/2024 0745 Last data filed at 09/04/2024 0700 Gross per 24 hour Intake 589 ml Output 4420 ml Net -3831 ml Physical Exam: -GENERAL: Intubated and sedated -EYES: Extraocular movements intact. -ENT: Neck supple, Septum is midline. DRY oral mucosa. -LUNG: Mildly coarse bilaterally with expiratory wheezing on the right. -CVS: Regular rate, irregularly irregular rhythm, S1 and S2 normal, No murmurs. -ABDOMEN: Soft, nondistended, Nontender, Bowel sounds observed. -EXT: No bilateral lower Ext edema. Gauze wraps around bilateral lower legs. -NEURO: Alert, awake, oriented x3, No gross neuro deficit -SKIN: Skin color, texture, turgor normal. No rashes or lesions LABs Recent Labs Lab 09/01/24 0819 09/02/24 0030 09/02/24 0741 09/02/24 2325 09/03/24 0506 09/03/24202809/04/24 0415 NA 141 143 145 145 145 144 148* K 4.9 4.2 4.1 4.1 4.1 4.2 3.5 CL 110 112 113 112 112 110 111 CO2 21.2 27.0 25.8 29.6 28.3 30.9 31.3 AGAP 9.8 4.0 6.2 3.4 4.7 3.1 5.7 BUN 70* 68* 68* 56* 56* 60* 64* CR 2.28* 2.26* 2.00* 1.90* 1.81* 2.15* 2.29* GLU 121* 282* 228* 238* 218* 442* 320* CA 9.7 9.6 9.8 9.3 9.8 9.7 9.2 MAGNESIUM 2.5 -- -- -- -- 2.4 2.4 PHOS -- 3.6 -- 3.1 -- 4.1 4.1 Recent Labs Lab 08/31/24 1035 09/01/24 0819 09/02/24 0741 09/03/24 0506 09/03/24202809/04/24 0415 WBC 11.40* 11.52* 13.53* 13.49* 17.46* 14.31* RBC 3.74* 4.03* 4.32* 4.17* 4.69 4.31* HGB 10.9* 11.6* 12.5 11.9* 13.7 12.1 HCT 34.9* 36.8* 40.1 39.1 44.3 40.6 MCV 93.3 91.3 92.8 93.8 94.5 94.2 MCH 29.1 28.8 28.9 28.5 29.2 28.1 MCHC 31.2* 31.5* 31.2* 30.4* 30.9* 29.8* PLT 85* 100* 130* 111* 131* 138* RDW 16.1* 16.0* 15.9* 16.1* 16.2* 15.9* MPV 11.8* 12.7* 12.9* 11.9* 13.2* 11.7* Assessment/Plan: 69-year-old gentleman with past medical history significant for CKD stage III, atrial fibrillation,heart failure with reduced ejection fraction, coronary disease, aortic stenosis status post bioprosthetic aortic valve placement, pulmonary hypertension, COPD, obstructive sleep apnea, dyslipidemia, diabetes mellitus type 2, stroke, anxiety, hypertension, restless leg syndrome who presented due to BRITTANY and hyperkalemia. Patient had a fall on 08/18/2024, initially declined treatment but ultimately presented to outside ED 2 days ago with rib pain and knee pain. He also reported shortness of breath and lower extremity swelling. His creatinine was found to be 2 with potassium 5.9. Patient transferred to [facility] for BRITTANY and hyperkalemia management. BRITTANY on CKD stage III -Baseline creatinine 1.3-1.5. Patient also follows with Dr. Beltran -At outside hospital creatinine was 2.0, patient received fluids and creatinine increased to 2.8. This is likely related to hemodynamics/fluid overload. -Renal ultrasound showed suboptimal visualization of right kidney. No right sided hydronephrosis. No increase echogenicity. Right kidney 11.6 cm. Left kidney was not seen. -CPK normal, urinalysis 3+ blood and a mild protein WBCs 27 RBCs greater than 182, urine sodium of 88. Remainder of BRITTANY serology pending. -Initial chest x-ray showed pulmonary vascular congestion and interstitial edema -Initially diuresed with 80 of Lasix IVP daily and decreased to torsemide 20 mg daily on 09/02/2024 as patient did a significant response to diuretics (-9.5 L over 48 hours). He did begin did not appear mildly intravascularly dry with a sodium of 145 and elevated BUN to creatinine ratio. Will need to continue to monitor diuretic dosage closely. -Creatinine currently improved at 2.2 -On Lasix drip with good response; urine output 4.4 L over the past 24 hours 2. HTN. -On low-dose Levophed, defer to ICU team -Continue to avoid STEVIE/ARB 3. Anemia of chronic disease. Hemoglobin stable 4. Electrolytes. -Potassium currently stable at 3.5 -Hyponatremia resolved and now developing hypernatremia. Continue to monitor closely 5. Renal osteodystrophy. Calcium of 9.2. Phosphorus of 4.1. 6. Disposition stable Thank you for allowing me to participate in the care of this patient. We will continue to follow this patient with you. Please contact us with further questions. LUDY MORRELL MD 09/04/2024 ROOM SUPERVISOR * Teresa Padron RN - 09/04/2024 7:00 AM CST 09/04/24 0700 Interdisciplinary Group Conference Team Members Present Case/Care management;Nursing Patient Current Status Paient current status Inpatient Barriers to Discharge Inpatient Review Barriers to Discharge Inpatient Weaning for Oxygen in Process;Administering IV meds;Complex - Social and/or Medical Weaning for Oxygen in Process follow up ett/vent Administering IV meds follow up prop, fent, levo, lasix, heparin Complex - Social and/or Medical follow up Rapid response 09/03 for hypoxia and increasing O2 demands. Patient expects to be discharged to Patient expects to be discharged to: [facility]( SNF) Initial PT/OT recs for therapy at SNF. Pt now ICU status. Will need new therapy orders once appropriate. 1520 - PASRR complete. No level 2. ROOM SUPERVISOR ROOM SUPERVISOR * CONSTANTIN Fortune - 09/04/2024 6:41 AM CST 09/04/24 0500 Inpatient CYTOLOGY TEACHER Time Calculation CYTOLOGY TEACHER Start Time 0641 CYTOLOGY TEACHER Therapy Interruption (min) Speech pathology completed clinical chart review and noted patient has been transferred to the ICU and is now intubated requiring mechanical ventilation. We will sign-off at this time but please re-consult once patient has been extubated and is medically appropriate. ROOM SUPERVISOR * Teresa Carlisle, PT - 09/04/2024 6:35 AM CST 09/04/24 0635 Acute Inpatient PT Time Calculation PT Start Time 0635 PT Therapy Interruption (min) Orders received and chart reviewed. Noted pt is currently intubated and sedated. Therapy services will sign off at this time and defer bedside ROM/positioning/chair position in bed to nursing staff as pt is not appropriate for skilled services and we will need new orders when appropriate for out of bed activity. Thank you. ROOM SUPERVISOR * Theresa Berumen, OT - 09/04/2024 6:29 AM CST 09/04/24 0600 Acute Inpatient OT Time Calculation OT Start Time 0628 OT Therapy Interruption (min) Orders received and chart reviewed. Noted pt is currently intubated and sedated. Therapy services will sign off at this time and defer bedside ROM/positioning/chair position in bed to nursing staff pt is not appropriate for skilled services and will need new orders when appropriate for out of bed activity. ROOM SUPERVISOR * Lana Gee RN - 09/04/2024 6:00 AM CST Problem: Pain control/comfort Goal: Promote pain [...] Absence of new skin breakdown Outcome: Progressing ROOM SUPERVISOR * Edd Ross RN - 09/03/2024 9:06 PM CST Pt saturations were in 60 despite all interventions, rapid response was called, and transferred to ICU. Handoff given at bedside in the ICU to the receiving nurse. ROOM SUPERVISOR * Nikolas Jiménez MD - 09/03/2024 8:22 PM CST [facility] NOCTURNAL HOSPITALIST CROSS COVERAGE NOTE: DATE OF SERVICE: 09/03/2023 Rapid response was called on the patient as the patient has had worsening hypoxia and as the patient had 30 beats of ventricular tachycardia. The patient also has had an episode of syncope as he had the one run of 30 beats of ventricular tachycardia. I arrived at the patient's room as I responded to the rapid response. I assessed the patient at thebedside and I examined the patient. The patient's oxygen saturation went down into the 60s while being on oxygen as administered at 6 Liters. The patient was placed on BIPAP 16/10, FIO2 of 100 %, and the patient's oxygen saturation improved to 85 % on BIPAP FIO2 of 100 %. I ordered stat labs and a stat chest x-ray. I also ordered a stat ABG and a stat ECG. The patient's code status is DNR. I clarified with the patient if he is okay with being intubated if necessary and the patient indicates that he is okay with being intubated if necessary. The patient's nurse was present at the bedside during the conversation. I discussed the patient's case with the [facility] mergers and acquisitions associate () who accepted the patient as a transfer to ICU. I placed in transfer orders. The patient has been receiving IV Lasix drip for the treatment of his acute on chronic systolic heart failure. I also called the patient's daughter (Bonine) over the phone as I updated her about her father's condition and I also informed her that he was okay with getting intubated if needed and she was okay with that. ROOM SUPERVISOR ROOM SUPERVISOR * Beth Durand - 09/03/2024 8:00 PM CST Consult to Spiritual Care regarding: rapid response critical to ICU Consult from: rapid response paged ; pt was taken to ICU ;intubated People present: rapid response team ; MD;RN; ICU MD Need Identified: pt transferred to ICU Interventions: prayers; ministry of presence Follow up needs: Chaplains will follow up and collaborate with Interdisciplinary Team as needed . Beth Durand CRT, MA. [facility], Spanish Literature Professor, 09/03/2024 ROOM SUPERVISOR * Gladys Douglas RN - 09/03/2024 3:38 PM CSTSummary: careplan Problem: Discharge Planning Goal: Knowledge of discharge [...] of new skin breakdown Outcome: Progressing Problem: Reduced risk for falls/injury Goal: Reduced Risk for Falls/Injury Outcome: Progressing Goal: Reduced Risk of Confusion (Acute vs Chronic) Outcome: Progressing Goal: Reduced Risk of Symptomatic Depression Outcome: Progressing Goal: Reduced Risk of Altered Elimination Outcome: Progressing Goal: Reduced Risk of Dizziness/Vertigo/Balance Outcome: Progressing Goal: Reduced Risk of Polypharmacy Outcome: Progressing Problem: Infection - Risk of, Urinary Catheter-Associated Urinary Tract Infection Goal: Absence of Urinary Catheter Associated Urinary Tract (UTI) Infection Signs and Symptoms Outcome: Progressing Problem: Swallowing Goal: STG - Pt will participate in Modified Barium Swallow Study to assess physiology and anatomy of swallow and to determine appropriate diet and/or rehab exercises Outcome: Progressing ROOM SUPERVISOR * Donny De León, PT - 09/03/2024 2:08 PM CSTSummary: Physical Therapy Evaluation PT Initial Evaluation Discharge Recommendation: OT/PT at [facility] Activity Recommendation for pediatric assistant: Hanny AxKatiana 09/03/24 0700 Therapy [facility] Evaluation Completed on 09/03/24 Subjective Pt cleared to be seen for therapy services by RN. Upon entry, pt semisupine in bed, agreeable to therapy services. RN reporting pt with worsening lung sounds at this time but okay for OOB mobility. Reason for admission Pt presents with BRITTANY, hyperkalemia, acute on chronic systolic CHF, CAD, atrialfibrillation and prosthetic aortic stenosis... Of note pt with recent GLF 08/18 with right 7-8 rib fxs...........PMH: afib, LV dysfunction, CAD, hypertension aortic stenosis, chronic anticoagulation,s/p aortic valve replacement, varicose veins, claudication, nstemi, pulmonary hypertension, CHF, copd, obstructive sleep apnea, asthma, hyperlipidemia, diabetes mellitus type 2, TIA, arthritis, carotid disease, rib fractures, chronic venous insufficiency...............Therapy orders: eval and treat. Verified Two Patient Identifiers Yes Patient consents to therapy Yes Acute Inpatient PT Time Calculation PT Start Time 1344 PT Stop Time 1408 PT Time Calculation (min) 24 min Precautions General Precautions Bed Alarm;Chair Alarm;Fall Risk;Supplemental oxygen Instructed on Precautions Yes;Verbalizes understanding Other tele, IV, oneill, O2 Prior Function PLOF Comments Per chart review: Pt lives with his daughter and her [...] the home. Pt reports 3 falls due toLE weakness/unsteadiness. DME: power recliner, cane, ww, riser. Since last admission patient reports he has been working with home health PT and was about to be discharged from their services secondary to good progress. Does not have 24/[address]. Pain Pain Patient does not offer or c/o pain Activity Tolerance Endurance Quality Fair Limiting Factors to Endurance Shortness of breath;Weakness;Acute deconditioning Activity Tolerance Comments Pt with SOB throughout evaluation with increased fatigue. Vision - Basic Assessment Current Vision No visual deficits Vision - Complex Assessment Additional Comments Pt reports no acute visual changes since admit Cognition Overall Cognitive Status WFL Arousal/Alertness Appropriate responses to stimuli Attention Span Appears intact Memory Appears intact Orientation Level Oriented X4 Following Commands Follows all commands and directions without difficulty Safety Judgment Decreased awareness of need for assistance Awareness of Errors Assistance required to identify errors made Deficits Decreased awareness of deficits Problem Solving Assistance required to identify errors made Comments Pt difficult to understand at times due to soft voice and SOB with talking. Sensation Light Touch No apparent deficits Overall Extremity Assessment Lower Extremity BLEs AROM WFL, strength grossly 4/5 Bed Mobility Supine to Sit Min assist to left Other (Comment) HOB elevated, use of rails, pt requiring min Ax1 for trunk support. TRANSFERS Stand Pivot Transfers Mod assist Sit to Stand Mod assist Other (Comment) Pt requiring mod Ax1 with transfer from bed to recliner with BUE support on therapist for assistance. Pt demonstrating increased SOB with minimal activity and weakness. Pt fatigues quickly. Gait Gait Assistance Other Other (Comment) Unable to ambulate this date due to increased fatigue and labored SOB. Balance Sitting - Static CGA Sitting - Dynamic CGA Standing - Static Mod Assist;Support of both upper extremities Standing - Dynamic Mod Assist;Support of both upper extremities Other (Comment) Pt demonstrating increased left lateral lean in sitting and mod Ax1 for standing balance wiht BUE support. Pt demonstrates labored breathing and fatigues quickly this date. Assessment Personal Factors/Comorbidities Impacting Care 3-4 personal factors/comorbidities Examination of Body Systems Moderate (3 or more Elements) Clinical Presentation of Patient Evolving and changing characteristics Complexity Level of Evaluation Moderate Prognosis Good Patient/Family Training Other (Comment) Pt educated on bed mobility, transfers, safety, energy conservation, therapy plan and discharge recommendations. Discharge Recommendation PT Recommendation PT at correction Facility Plan PT Treatments/Interventions Gait Training;Therapeutic Exercises;Therapeutic Activities;Neuromuscular re-education;Canalith repositioning;Patient/family training PT Frequency 5 times/week PT - Next Appointment 09/03/24 If this is the last treatment note,it will serve as the discharge summary Yes End of Session End of Session Safety Chair alarm set/activated;Call light within reach;Nursing aware of session;Transfer status education Assessment: Pt is a 69 y.o. male with dx of CHF exacerbation. Pt presents from home with family where he was mostly independent with ADLs and mobility with a wheeled walker. Currently, pt requires minimal assistwith bed mobility and moderate assistance with transfers. Pt demonstrates increased labored breathing with minimal activity, decreased strength, decreased functional mobility, decreased balance, and acute deconditioning making him a high fall risk. Pt to benefit from continued therapy services during his hospital stay to maximize safety and functional mobility. PT recommend discharge to SNF. The below POC to be followed until 09/17/24 at that time POC will be re-assessed to ensure patient is making appropriate progression. Pt. will be able to perform supine to/from sitting at EOB with Independent to improve mobility. Pt. will be able to perform sit to/from standing with Modified [place] using wheeled walker toimprove independence. Pt. will be able to ambulate 100 feet with Modified [place] using wheeled walker to help improve strength and functional independence. Pt. will be able to maintain static sitting balance for 20-30 minutes with Independent to improve independence. Pt. will be able to maintain dynamic sitting balance on soft surface with Independent to improve functional mobility. Pt. will be able to maintain static standing balance 10-20 minutes with Modified [place] usingwheeled walker to improve independence. Pt. will be able to maintain dynamic standing balance during side-stepping L/R and marching with Modified [place] using wheeled walker to improve functional mobility. Pt. will be able to ascend/descend 3 steps with Modified [place] using handrail(s) to increasestrength and to safely access home at D/C. Education: Primary Learners Name: Obie Sims Primary Language of learner: Bangladeshi Patient was educated on transfers balance bed mobility equipment therapy plan safety energy conservation adaptive skills edema management. Education was completed verbal demonstration this date. Preference of learning new concepts verbal demonstration Barriers to education this date were none. Response to education this date verbalized understanding demos with verbal cues needs follow up needs assistance. ROOM SUPERVISOR * Scotty Chan, PharmD, [facility] - 09/03/2024 1:15 PM CST Vancomycin Pharmacokinetic Progress Note Day 0 of therapy Obie Sims is a 69-year-old male for which pharmacy has been consulted to dose vancomycin for Pneumonia. Other antibiotics ordered include zosyn. Allergies: No Known Allergies Height: 1.676 m (5' 6 ) Weight: 95.3 kg (210 lb 1.6 oz) Body mass index is 33.91 kg/m??. Temp (24 hr max): Temp Av.3 ??F (36.8 ??C) Min: 98.2 ??F (36.8 ??C) Max: 98.4 ??F (36.9 ??C) Today's labs and vitals: Lab Results Component Value Date/Time WBC 13.49 (H) 09/03/2024 05:06 AM WBC 13.53 (H) 09/02/2024 07:41 AM WBC 11.52 (H) 09/01/2024 08:19 AM WBC 11.40 (H) 08/31/2024 10:35 AM WBC 8.37 08/03/2024 05:46 AM Lab Results Component Value Date/Time CR 1.81 (H) 09/03/2024 05:06 AM CR 1.90 (H) 09/02/2024 11:25 PM CR 2.00 (H) 09/02/2024 07:41 AM CR 2.26 (H) 09/02/2024 12:30 AM CR 2.28 (H) 09/01/2024 08:19 AM CrCl = estimated creatinine clearance is 41 mL/min (A) (by C-G formula based on SCr of 1.81 mg/dL (H)). Intake/Output Summary (Last 24 hours) at 09/03/2024 1315 Last data filed at 09/03/2024 0423 Gross per 24 hour Intake 400 ml Output 2930 ml Net -2530 ml Pertinent Cultures: Date Drawn Site Organism Pertinent Sensitivity Levels: Date Time Level AUC Dose Comments Assessment: Obie Sims is a 69-year-old male who is currently receiving vancomycin. AUC goal is 400 - 600 Current AUC level is Pending Renal function is Improving. Scr 2.84 -> 2.28 -> 1.9 -> 1.81 Plan: Antibiotic Plan: vancomycin 1750mg x1 dose. Followed by 1000mg q24h (est AUC 452) Next level due: 09/06 @ 0600 Pharmacy will continue to follow cultures, clinical status, and appropriateness of therapy. Thank you for the consult. Pharmacy Consult per Dr. Neftali CHAN, PharmD, [facility] Phone: [phone] 09/03/2024 1:15 PM ROOM SUPERVISOR * Scotty Chan, AaliyahD, [facility] - 09/03/2024 1:07 PM CST Warfarin - Pharmacy Dosing Service Note Obie Sims is a 69-year-old male for which pharmacy has been consulted to dose warfarin for A.fib. Goal INR is 2-3. Warfarin Order Set Activated: Yes Warfarin Start Date: continuation from home Past Medical History: Diagnosis Date Abnormal ankle brachial index ([facility]) Acute on chronic heart failure, unspecified heart failure type ([facility]) Anxiety Aortic valve stenosis Arthritis Asthma, mild persistent ([facility]) 04/06/2021 Atrial fibrillation ([facility]) s/p PVI/[facility] 10/2015 Bilateral leg pain Carotid disease, bilateral ([facility]) CHF (congestive heart failure) ([facility]) Claudication ([facility]) COPD (chronic obstructive pulmonary disease) ([facility]) Coronary artery disease Diabetes mellitus, type II ([facility]) Edema 04/19/2018 2+ pitting History of blood transfusion Hyperlipidemia Hypertension LV dysfunction Non-pressure chronic ulcer of left calf limited to breakdown of skin ([facility]) 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 breakdown of skin ([facility]) Osteoarthritis PAD (peripheral artery disease) ([facility]) Pneumonia Restless leg syndrome S/P aortic valve replacement with bioprosthetic valve 2013 SOB (shortness of breath) Stroke ([facility]) Varicose veins of bilateral lower extremities with other complications Weight gain with edema Home warfarin dose: warfarin 2 mg po daily per med rec Bridging agent: none Vitamin K use: No; (if yes, indicate date, dose, and route) Diet: PO Recent Labs Lab 09/01/24 0819 09/02/24 0030 09/02/24 0741 09/02/24 2325 09/03/24 0506 HGB 11.6* -- 12.5 -- 11.9* HCT 36.8* -- 40.1 -- 39.1 PLT 100* -- 130* -- 111* AST 23 -- 18 -- 23 ALT 20 -- 21 -- 21 ALKP 135* -- 139* -- 129* ALB 3.0* < > 3.1* < > 3.0* < > = values in this interval not displayed. Date INR Dose Received 08/28 5.4 per [facility] paperwork - 08/29 - - 08/30 2.7 2 mg at [facility] 08/31 1.8 - 09/01 1.6 2 mg 09/02 1.9 2 mg 09/03 2.6 hold Drug interactions: Potential to increase INR: - Potential to decrease INR: - Potential to increase the risk of bleeding: aspirin, sertraline Warfarin Sensitivity: moderate, based on the following risk factors: thrombocytopenia, end state renal disease or Scr > 2.2, and age 66-79. Hgb/Hct today are stable INR today is therapeutic, but with large jump today The plan is to hold once tonight and recheck an INR in the morning to assist with subsequent dosing. Pharmacy will continue to monitor labs and notes daily, adjusting the dose as clinically appropriate. Thank you for the consult. Pharmacy to dose per Dr. Neftali CHAN, PharmD, [facility] Phone number: [phone] 09/03/2024 1:07 PM ROOM SUPERVISOR * Jean Lindsay MD - 09/03/2024 11:57 AM CST Images from the original note were not included. [employer] Hospitalist Progress note Chief Complain: BRITTANY CHF exacerbation ASSESSMENT /PLAN: Obie Sims is an 69-year-old male with a past medical history of CKD stage III, atrial fibrillation on warfarin, heart failure with reduced ejection fraction, coronary artery disease, aortic stenosis status post bioprosthetic aortic valve replacement, pulmonary hypertension, COPD/asthma, obstructive sleep apnea, hyperlipidemia, diabetes mellitus type 2, CVA, carotid disease, anxiety/depression, hypertension, PAD, and RLS. He was transferred to [facility] with BRITTANY and hyperkalemia. Acute on chronic heart failure with reduced ejection fraction Anasarca BRITTANY on CKD stage III improving Hyperkalemia, resolved Pulmonary hypertension Valvular heart disease Acute respiratory failure with hypoxia -Suspect cardiorenal syndrome. Patient received both diuretics and IV fluids at the outside facility. -Echocardiogram from February 2024 reveals an ejection fraction of 40 to 45% with bioprosthetic aortic valve, no central or periprosthetic aortic regurgitation, mild mitral regurgitation, and mild tricuspid regurgitation. -Creatinine 2.02-> 2.79-> 2.84. pending caretinine -BNP more than 8000. Chest x-ray shows cardiomegaly and interstitial edema. Volume overloaded on exam. -IV Lasix 80 mg daily. Continue current dose of Lasix no potassium supplementation. -Strict intake and output with daily weights. -Continue Oneill. -Hold Entresto in light of BRITTANY. Continue beta-kim and Jardiance. -[facility] nephrology consulted for assistance with diuresis and BRITTANY. -Oxygen to maintain saturations greater than 89%. Creatinine improving monitor Ground-level fall Rib fractures Generalized weakness -CT of the chest shows acute fractures of the seventh and eighth right ribs. -Up with assist, fall precautions. -PT/OT consult. -Pain control. -Incentive spirometer. Concern for pneumonia probably HCAP versus aspiration vancomycin and Zosyn added chest x-ray noted WBC still elevated Added Mucomyst continue DuoNebs Hematuria -UA negative. -Likely due to traumatic Oneill insertion and/or trauma to Oneill in setting of supratherapeutic INR.Initial UA with no RBCs. -Bleeding seems to be clearing, continue to monitor. Pharmacy to resume warfarin Atrial fibrillation Supratherapeutic INR, resolved -INR was 5.4 on presentation. INR dropping will have pharmacy resume Coumadin hemoglobin stable -Continue beta-kim for rate control. -Monitor telemetry. Diabetes mellitus type 2 -Continue Jardiance. Continue sliding scale insulin and Lantus as indicated Coronary artery disease Hypertension Hyperlipidemia -Heart catheterization from 2020 revealed a 60% proximal LAD stenosis, 50% ostial RCA stenosis, bioprosthetic aortic valve without aortic regurgitation, and severe pulmonary hypertension. -Historically not on aspirin. Continue beta-kim and statin. -Monitor telemetry. COPD/asthma overlap syndrome -Not in acute exacerbation. -Resume inhalers. Oral thrush add nystatin CVA Carotid disease PAD -Continue aspirin and statin. Body mass index is 39.07 kg/m??. DVT prophylaxis: Resumed Coumadin Code status: DNR Disposition/Discharge plan: 3 days based on progress may need placement I have ordered, reviewed and interpreted all Labs . I have reviewed and interpreted all Imaging . Ihdaksha reviewed,ordered and prescribed all necessary medications. I have reviewed and interpreted allconsultant notes. Case was discussed w/ the patient and/or POA. All questions were answered & concerns addressed. Case was also discussed with case management AND [employer]. JEAN LINDSAY MD 11:57 AM 09/03/2024 SUBJECTIVE Patient seen and examined. Says overall improving persistent WBC count REVIEW OF SYSTEMS Negative for 12 system except mentioned SUBJECTIVE OBJECTIVE Wt Readings from Last 3 Encounters: 09/03/24 95.3 kg (210 lb 1.6 oz) 08/24/24 106.6 kg (235 lb) 08/03/24 103 kg (227 lb) Temp: 98.2 ??F (36.8 ??C) BP Readings from Last 3 Encounters: 09/03/24 (!) 150/69 08/24/24 131/78 08/03/24 116/72 Pulse Readings from Last 3 Encounters: 09/03/24 (!) 107 08/24/24 68 08/03/24 72 PHYSICAL EXAMINATION: General Appearance: Moderately built and nourished. Alert,oriented to time ,place and Person. Head: atraumatic, normocephalic. Eyes: Pupils equal and reactive to light. No discharge.no nystagmus. Ears: Normal Tympanic membrane and external ear canal . Throat: Lips, mucosa, and tongue,teeth and gums normal. Neck: Supple, symmetrical, trachea midline, no adenopathy; thyroid: No enlargement/tenderness/nodules; no carotid bruit or JVD Lungs: C decreased breath sounds at bases heart: S1 and S2 normal, no murmur, rub or gallop . Abdomen: Soft,non-tender, bowel sounds active all four quadrants, no masses, no organomegaly detected. Extremities: Mild edema pulses: 2+ and symmetric all extremities Lymph nodes: Cervical, supraclavicular, and axillary nodes normal Neurologic: CNII-XII intact. Normal strength in the upper extremities, normal in both lower extremities, sensation and reflexes normal throughout.no disdiadochokinesia LABS: Recent Labs 09/01/24 0819 09/02/24 0741 09/03/24 0506 WBC 11.52* 13.53* 13.49* HGB 11.6* 12.5 11.9* HCT 36.8* 40.1 39.1 MCV 91.3 92.8 93.8 PLT 100* 130* 111* RBC 4.03* 4.32* 4.17* Recent Labs 09/01/24 0819 09/02/24 0030 09/02/24 0741 09/02/24 2325 09/03/24 0506 ALT 20 -- 21 -- 21 AST 23 -- 18 -- 23 CO2 21.2 < > 25.8 29.6 28.3 CL 110 < > 113 112 112 GLU 121* < > 228* 238* 218* K 4.9 < > 4.1 4.1 4.1 NA 141 < > 145 145 145 BUN 70* < > 68* 56* 56* < > = values in this interval not displayed. Intake/Output Summary (Last 24 hours) at 09/03/2024 1157 Last data filed at 09/03/2024 0423 Gross per 24 hour Intake 700 ml Output 3650 ml Net -2950 ml Microbiology Results (last 14 days) Procedure Component Value Units Date/Time CULTURE, BACTERIA BLOOD X2 [[id number]] Collected: 08/31/24 1034 Order Status: Completed Lab Status: Preliminary result Updated: 08/31/242108 Specimen: BLOOD SPEC DESCRIPTION BLOOD SPECIAL REQUESTS NO SPECIAL REQUEST CULTURE RESULT NO GROWTH <24 HRS Radiology MEDICATIONS Scheduled medications acetylcysteine 10 % 200 mg Nebulization 2 times daily allopurinol 300 mg Oral Daily aspirin 81 mg Oral Daily atorvastatin 80 mg Oral Nightly at bedtime carvedilol 3.125 mg Oral BID clotrimazole-betamethasone Topical Q12H empagliflozin 25 mg Oral Daily folic acid 1 mg Oral Daily insulin lispro 0-6 Units Subcutaneous 4x Daily AC and at bedtime mometasone-formoterol 2 puff Inhalation 2 times daily nystatin 5 mL Oral 4x Daily nystatin Topical BID pantoprazole EC 40 mg Oral Daily piperacillin-tazobactam 3.375 g Intravenous Q6H piperacillin-tazobactam 3.375 g Intravenous Q8H pregabalin 150 mg Oral BID sertraline 50 mg Oral Daily tiotropium 2 puff Inhalation Daily torsemide 20 mg Oral Daily traZODone 300 mg Oral Nightly at bedtime vancomycin pharmacy to dose Intravenous See Admin Instructions warfarin (COUMADIN) pharmacy to dose Oral See Admin Instructions Infusion PRN acetaminophen, albuterol sulfate HFA, HYDROcodone-acetaminophen, HYDROmorphone, hydrOXYzine, naLOXone, ondansetron, polyethylene glycol ROOM SUPERVISOR * Leo Ibrahim MD - 09/03/2024 9:23 AM CST [facility] Nephrology Progress Note Obie Sims is a 69-year-old male patient. HPI 69-year-old gentleman with past medical history significant for CKD stage III, atrial fibrillation,heart failure with reduced ejection fraction, coronary disease, aortic stenosis status post bioprosthetic aortic valve placement, pulmonary hypertension, COPD, obstructive sleep apnea, dyslipidemia, diabetes mellitus type 2, stroke, anxiety, hypertension, restless leg syndrome who presented due to BRITTANY and hyperkalemia. Patient had a fall on 08/18/2024, initially declined treatment but ultimately presented to outside ED 2 days ago with rib pain and knee pain. He also reported shortness of breath and lower extremity swelling. His creatinine was found to be 2 with potassium 5.9. Patient transferred to [facility] for BRITTANY and hyperkalemia management. Nephrology consulted to manage kidney disease Subjective Blood pressure stable without complaints of lightheadedness or dizziness. He states his lower extremity swelling is resolved. 2. He reports some shortness of breath and does appear to have increased work of breathing this morning on exam. He denies any chest pain. 3. Tolerating Oneill catheter without complaints of dysuria. Review Of Systems 10 point ROS is negative unless stated in the HPI Current Facility-Administered Medications Medication Dose Route Frequency Provider Last Rate Last Admin acetaminophen (TYLENOL) tablet 650 mg 650 mg Oral Q4H PRN ALONDRA Christianson albuterol sulfate HFA 108 (90 Base) MCG/ACT inhaler 2 puff 2 puff Inhalation Q4H PRN ALONDRA Christianson allopurinol (ZYLOPRIM) tablet 300 mg 300 mg Oral Daily RAVEN ChristiansonBC 300 mg at aspirin chewable tablet 81 mg 81 mg Oral Daily Shereen Duncan NP 81 mg at 09/03/24827 atorvastatin (LIPITOR) tablet 80 mg 80 mg Oral Nightly at bedtime KERVIN Christianson-BC 80 mg at 09/02/242137 carvedilol (COREG) tablet 3.125 mg 3.125 mg Oral BID RAVEN ChristiansonBC 3.125 mg at 8 clotrimazole-betamethasone (LOTRISONE) cream Topical Q12H RAVEN ChristiansonBC Given at 09/03/24 0831 empagliflozin (JARDIANCE) tablet 25 mg 25 mg Oral Daily KERVIN Christianson- BC 25 mg at folic acid (FOLVITE) tablet 1 mg 1 mg Oral Daily ALONDAR Christianson 1 mg at 09/03/24827 HYDROcodone-acetaminophen (NORCO) 5-325 MG tablet 1 tablet 1 tablet Oral Q4H PRN ALONDRA Christianson HYDROmorphone (DILAUDID) injection 0.2 mg 0.2 mg Intravenous Q2H PRN ALONDRA Christianson hydrOXYzine (ATARAX) tablet 50 mg 50 mg Oral TID PRN ALONDRA Christianson insulin lispro (HUMALOG/ADMELOG) injection 0-6 Units 0-6 Units Subcutaneous 4x Daily AC and at bedtime Jean Lindsay MD 1 Units at 09/03/24 0755 mometasone-formoterol (DULERA) 100-5 MCG/ACT inhaler 2 puff 2 puff Inhalation 2 times daily ALONDRA Christianson 2 puff at 09/03/24 0756 naLOXone (NARCAN) injection 0.4 mg 0.4 mg Intravenous PRN ALONDRA Christianson nystatin (MYCOSTATIN) 736110 UNIT/ML suspension 5 mL 5 mL Oral 4x Daily Jean Lindsay MD 5 mL at 09/03/24 0828 nystatin (MYCOSTATIN) powder Topical BID ALONDRA Christianson Given at 09/03/24 0828 ondansetron (ZOFRAN) injection 4 mg 4 mg Intravenous Q8H PRN ALONDRA Christianson pantoprazole EC (PROTONIX) tablet 40 mg 40 mg Oral Daily RAVEN Christianson 40 mg at 09/03/24 0828 polyethylene glycol (GLYCOLAX) packet 17 g 17 g Oral Daily PRN ALONDRA Christianson pregabalin (LYRICA) capsule 150 mg 150 mg Oral BID ALONDRA Christianson 150 mg at 09/03/24 0828 sertraline (ZOLOFT) tablet 50 mg 50 mg Oral Daily ALONDRA Christianson 50 mg at 09/03/24 0828 tiotropium (SPIRIVA RESPIMAT) 2.5 MCG/ACT inhaler 2 puff 2 puff Inhalation Daily ALONDRA Christianson 2 puff at 09/03/24 0759 torsemide (DEMADEX) tablet 20 mg 20 mg Oral Daily Marlin Henriquez NP 20 mg at 09/03/24 0828 traZODone (DESYREL) tablet 300 mg 300 mg Oral Nightly at bedtime ALONDRA Christianson 300 mg at 09/02/242137 warfarin (COUMADIN) pharmacy to dose placeholder Oral See Admin Instructions Jean Lindsay MD Review of patient's allergies indicates: No Known Allergies Principal Problem: CHF exacerbation ([facility]) SNOMED CT(R): ACUTE EXACERBATION OF CHRONIC CONGESTIVE HEART FAILURE Filed Vitals: 09/02/24 1936 09/03/24 0003 09/03/24 0423 09/03/24 075 BP: (!) 146/92 138/71 136/66 (!) 150/69 Pulse: 85 89 95 (!) 107 Resp: Temp: 98.4 ??F (36.9 ??C) 98.2 ??F (36.8 ??C) 98.2 ??F (36.8 ??C) TempSrc: Oral Oral Oral SpO2: 94% (!) 89% 94% 93% Weight: 95.3 kg (210 lb 1.6 oz) Height: Last 3 Recorded Weights 08/31/24 0947 09/02/24 0500 09/03/24 0423 Weight: 109.8 kg (242 lb 1 oz) 100.2 kg (220 lb 14.4 oz) 95.3 kg (210 lb 1.6 oz) Intake/Output Summary (Last 24 hours) at 09/03/2024922 Last data filed at 09/03/2024 042 Gross per 24 hour Intake 700 ml Output 3650 ml Net -2950 ml Physical Exam: -GENERAL: Mild distress, mildly labored breathing on 5 L O2 per nasal cannula. -EYES: Extraocular movements intact. -ENT: Neck supple, Septum is midline. DRY oral mucosa. -LUNG: Mildly coarse bilaterally with expiratory wheezing on the right. -CVS: Regular rate, irregularly irregular rhythm, S1 and S2 normal, No murmurs. -ABDOMEN: Soft, nondistended, Nontender, Bowel sounds observed. -EXT: No bilateral lower Ext edema. Gauze wraps around bilateral lower legs. -NEURO: Alert, awake, oriented x3, No gross neuro deficit -SKIN: Skin color, texture, turgor normal. No rashes or lesions LABs Recent Labs Lab 08/31/24 1035 09/01/24 0819 09/02/24 0030 09/02/24 0741 09/02/24 2325 09/03/24 0506 NA 135* 141 143 145 145 145 K 5.0 4.9 4.2 4.1 4.1 4.1 CL 106 110 112 113 112 112 CO2 23.8 21.2 27.0 25.8 29.6 28.3 AGAP 5.2 9.8 4.0 6.2 3.4 4.7 BUN 77* 70* 68* 68* 56* 56* CR 2.84* 2.28* 2.26* 2.00* 1.90* 1.81* GLU 103 121* 282* 228* 238* 218* CA 8.9 9.7 9.6 9.8 9.3 9.8 MAGNESIUM -- 2.5 -- -- -- -- PHOS -- -- 3.6 -- 3.1 -- Recent Labs Lab 08/31/24 1035 09/01/24 0819 09/02/24 0741 09/03/24 0506 WBC 11.40* 11.52* 13.53* 13.49* RBC 3.74* 4.03* 4.32* 4.17* HGB 10.9* 11.6* 12.5 11.9* HCT 34.9* 36.8* 40.1 39.1 MCV 93.3 91.3 92.8 93.8 MCH 29.1 28.8 28.9 28.5 MCHC 31.2* 31.5* 31.2* 30.4* PLT 85* 100* 130* 111* RDW 16.1* 16.0* 15.9* 16.1* MPV 11.8* 12.7* 12.9* 11.9* Assessment/Plan: 69-year-old gentleman with past medical history significant for CKD stage III, atrial fibrillation,heart failure with reduced ejection fraction, coronary disease, aortic stenosis status post bioprosthetic aortic valve placement, pulmonary hypertension, COPD, obstructive sleep apnea, dyslipidemia, diabetes mellitus type 2, stroke, anxiety, hypertension, restless leg syndrome who presented due to BRITTANY and hyperkalemia. Patient had a fall on 08/18/2024, initially declined treatment but ultimately presented to outside ED 2 days ago with rib pain and knee pain. He also reported shortness of breath and lower extremity swelling. His creatinine was found to be 2 with potassium 5.9. Patient transferred to [facility] for BRITTANY and hyperkalemia management. BRITTANY on CKD stage III -Baseline creatinine 1.3-1.5. Patient also follows with Dr. Beltran -At outside hospital creatinine was 2.0, patient received fluids and creatinine increased to 2.8. This is likely related to hemodynamics/fluid overload. -Renal ultrasound showed suboptimal visualization of right kidney. No right sided hydronephrosis. No increase echogenicity. Right kidney 11.6 cm. Left kidney was not seen. -CPK normal, urinalysis 3+ blood and a mild protein WBCs 27 RBCs greater than 182, urine sodium of 88. Remainder of BRITTANY serology pending. -Initial chest x-ray showed pulmonary vascular congestion and interstitial edema -Initially diuresed with 80 of Lasix IVP daily and decreased to torsemide 20 mg daily on 09/02/2024 as patient did a significant response to diuretics (-9.5 L over 48 hours). He did begin did not appear mildly intravascularly dry with a sodium of 145 and elevated BUN to creatinine ratio. Will need to continue to monitor diuretic dosage closely. -Creatinine currently improved at 2.2-->2.0-->1.8 with a BUN of 56 -He did appear quite short of breath at the bedside today. Portable chest x-ray and ABG completed showing some persistent alveolar and interstitial opacification concerning for pneumonia versus pulmonary edema. Plan on increasing the torsemide from 20 daily to 20 twice daily cautiously as well as adding on chlorthalidone 25 mg daily, he had some concerns about the mild hyponatremia and will try and ramp up on the thiazide diuretic. He had a pretty good response yesterday so would hope that the pulmonary edema should continue to improve 2. HTN. Blood pressure stable on carvedilol 3.125 mg twice daily and diuretics as noted above. -Continue to avoid STEVIE/ARB 3. Anemia of chronic disease. Hemoglobin stable at 11.9 4. Electrolytes. -Potassium currently stable at 4.1 -Hyponatremia resolved with a current sodium of 145. 5. Renal osteodystrophy. Calcium of 9.8. Phosphorus of 3.1. 6. Disposition stable. Dr. Morrell begins service at 7 AM tomorrow. Thank you for allowing me to participate in the care of this patient. We will continue to follow this patient with you. Please contact us with further questions. MARLIN HENRIQUEZ NP 09/03/2024 ROOM SUPERVISOR ROOM SUPERVISOR ROOM SUPERVISOR * Edd Ross RN - 09/02/2024 10:03 PM CST Problem: Discharge Planning Goal: Knowledge [...] Absence of new skin breakdown Outcome: Progressing ROOM SUPERVISOR * Roddy Lawson - 09/02/2024 2:25 PM CST Patient assessed for emotional/spiritual needs and well-being, Patient's Disposition/People present: patient alert / daughter presented Patient's support system: children Zoroastrianism Affiliation/Spiritual Background: Mandaen Geraldine community: FAITH - OTHER Notification of geraldine community desired: No [2] Interventions: Spiritual Care facilitated patient in attaining their spiritual goals by: Spiritual: Offering blessing Emotional: Demonstrating acceptance of patient Follow up Needed: As needed. ROOM SUPERVISOR * Armand Lentz MD - 09/02/2024 12:45 PM CST Images from the original note were not included. ASSESSMENT AND PLAN Acute on chronic HFrEF BRITTANY Paroxysmal A-fib CAD Aortic valve replacement with moderate prosthetic aortic valve stenosis PAD Clinically improved. Tolerating meds. Atrial fibrillation remains rate controlled. Renal function improving. Continue diuresis and other meds. I spent 40 minutes today in direct patient care, reviewing the patient's medical record, obtaining history, performing an exam, counseling and educating the patient/family/caregiver, reviewing and communicating test results, documenting in the medical record, referring and/or communicating with other health care providers and coordination of care. CHIEF COMPLAINT: Obie was seen for follow up of acute on chronic systolic CHF, CAD, atrial fibrillation and prosthetic aortic stenosis. SUBJECTIVE Obie is resting comfortably. States he feels better today. Has had good urine output. Ambulating short distances without symptoms. Review of Systems: Review of Systems Constitutional: Negative for recent unintentional weight gain, recent unintentional weight loss andnew or significant fatigue. HENT: Negative for new or significant hearing loss. Eyes: Negative for blurred vision and double vision. Respiratory: Positive for shortness of breath. Negative for cough and snoring. Cardiovascular: See HPI. Negative for chest pain, palpitations and PND. Gastrointestinal: Negative for blood in stool and melena. Genitourinary: Negative for dysuria. Musculoskeletal: Negative for myalgias and new or worsening joint stiffness/pain. Skin: Negative for rash. Neurological: Negative for tingling/numbness and focal weakness. Endo/Heme/Allergies: Negative for new or significant bruising/bleeding and polydipsia. Psychiatric/Behavioral: Negative for depression and new or significant memory loss. Medications: Scheduled Meds: allopurinol 300 mg Oral Daily aspirin 81 mg Oral Daily atorvastatin 80 mg Oral Nightly at bedtime carvedilol 3.125 mg Oral BID clotrimazole-betamethasone Topical Q12H empagliflozin 25 mg Oral Daily folic acid 1 mg Oral Daily insulin lispro 0-6 Units Subcutaneous 4x Daily AC and at bedtime mometasone-formoterol 2 puff Inhalation 2 times daily nystatin 5 mL Oral 4x Daily nystatin Topical BID pantoprazole EC 40 mg Oral Daily pregabalin 150 mg Oral BID sertraline 50 mg Oral Daily tiotropium 2 puff Inhalation Daily torsemide 20 mg Oral Daily traZODone 300 mg Oral Nightly at bedtime warfarin (COUMADIN) pharmacy to dose Oral See Admin Instructions Continuous Infusions: OBJECTIVE Intake/Output last 3 shifts: I/O last 3 completed shifts: In: 400 [P.O.:400] Out: 4420 [Urine:4420] Last Recorded Weight 09/02/24 0500 Weight: 100.2 kg (220 lb 14.4 oz) Body mass index is 35.65 kg/m??. Weight change in the last 24 hours: an appropriate measurement is not found Vitals: 09/02/24 1936 BP: (!) 146/92 Pulse: 85 Resp: 18 Temp: 98.4 ??F (36.9 ??C) SpO2: 94% Physical Exam Constitutional: General: He is not in acute distress. Appearance: Normal appearance. He is well-developed. HENT: Nose: No mucosal edema. Mouth/Throat: Pharynx: No oropharyngeal exudate. Neck: Vascular: No JVD. Cardiovascular: Rate and Rhythm: Normal rate. Rhythm irregular. Chest Wall: PMI is not displaced. Heart sounds: S1 normal and S2 normal. Murmur heard. No gallop. Pulmonary: Effort: Pulmonary effort [...] Behavior normal. Thought Content: Thought content normal. Pertinent Labs: Lab Results Component Value Date NA 145 09/02/2024 K 4.1 09/02/2024 CL 113 09/02/2024 CO2 25.8 09/02/2024 BUN 68 (H) 09/02/2024 CR 2.00 (H) 09/02/2024 GFRNON 37 12/19/2021 GFRNON 37 12/19/2021 GFR --- 12/19/2021 GLU 228 (H) 09/02/2024 CA 9.8 09/02/2024 TROP 48 07/31/2024 TROP 30 05/02/2024 TROP 45 07/12/2023 BNP 1,617 12/19/2021 BNP 92 01/04/2017 BNP 184 (H) 04/06/2016 Lab Results Component Value Date WBC 13.53 (H) 09/02/2024 PLT 130 (L) 09/02/2024 INR 1.9 (H) 09/02/2024 Lab Results Component Value Date ALB 3.1 (L) 09/02/2024 ALT 21 09/02/2024 HGBA1C 7.0 (H) 09/01/2024 TSH 2.000 09/01/2024 Telemetry: Atrial fibrillation, rate controlled. ROOM SUPERVISOR * Jean Lindsay MD - 09/02/2024 12:23 PM CST Images from the original note were not included. [employer] Hospitalist Progress note Chief Complain: BRITTANY CHF exacerbation ASSESSMENT /PLAN: Obie Sims is an 69-year-old male with a past medical history of CKD stage III, atrial fibrillation on warfarin, heart failure with reduced ejection fraction, coronary artery disease, aortic stenosis status post bioprosthetic aortic valve replacement, pulmonary hypertension, COPD/asthma, obstructive sleep apnea, hyperlipidemia, diabetes mellitus type 2, CVA, carotid disease, anxiety/depression, hypertension, PAD, and RLS. He was transferred to [facility] with BRITTANY and hyperkalemia. Acute on chronic heart failure with reduced ejection fraction Anasarca BRITTANY on CKD stage III improving Hyperkalemia, resolved Pulmonary hypertension Valvular heart disease Acute respiratory failure with hypoxia -Suspect cardiorenal syndrome. Patient received both diuretics and IV fluids at the outside facility. -Echocardiogram from February 2024 reveals an ejection fraction of 40 to 45% with bioprosthetic aortic valve, no central or periprosthetic aortic regurgitation, mild mitral regurgitation, and mild tricuspid regurgitation. -Creatinine 2.02-> 2.79-> 2.84. pending caretinine -BNP more than 8000. Chest x-ray shows cardiomegaly and interstitial edema. Volume overloaded on exam. -IV Lasix 80 mg daily. Continue current dose of Lasix no potassium supplementation. -Strict intake and output with daily weights. -Continue Oneill. -Hold Entresto in light of BRITTANY. Continue beta-kim and Jardiance. -[facility] nephrology consulted for assistance with diuresis and BRITTANY. -Oxygen to maintain saturations greater than 89%. Creatinine improving monitor Ground-level fall Rib fractures Generalized weakness -CT of the chest shows acute fractures of the seventh and eighth right ribs. -Up with assist, fall precautions. -PT/OT consult. -Pain control. -Incentive spirometer. Concern for aspiration Discussed with speech started on dysphagia diet Hematuria -UA negative. -Likely due to traumatic Oneill insertion and/or trauma to Oneill in setting of supratherapeutic INR.Initial UA with no RBCs. -Bleeding seems to be clearing, continue to monitor. Pharmacy to resume warfarin Atrial fibrillation Supratherapeutic INR, resolved -INR was 5.4 on presentation. INR dropping will have pharmacy resume Coumadin hemoglobin stable -Continue beta-kim for rate control. -Monitor telemetry. Diabetes mellitus type 2 -Continue Jardiance. Continue sliding scale insulin and Lantus as indicated Coronary artery disease Hypertension Hyperlipidemia -Heart catheterization from 2020 revealed a 60% proximal LAD stenosis, 50% ostial RCA stenosis, bioprosthetic aortic valve without aortic regurgitation, and severe pulmonary hypertension. -Historically not on aspirin. Continue beta-kim and statin. -Monitor telemetry. COPD/asthma overlap syndrome -Not in acute exacerbation. -Resume inhalers. Oral thrush add nystatin CVA Carotid disease PAD -Continue aspirin and statin. Body mass index is 39.07 kg/m??. DVT prophylaxis: Resumed Coumadin Code status: DNR Disposition/Discharge plan: 3 days based on progress may need placement I have ordered, reviewed and interpreted all Labs . I have reviewed and interpreted all Imaging . Ihave reviewed,ordered and prescribed all necessary medications. I have reviewed and interpreted allconsultant notes. Case was discussed w/ the patient and/or POA. All questions were answered & concerns addressed. Case was also discussed with case management AND [employer]. JEAN LINDSAY MD 12:23 PM 09/02/2024 SUBJECTIVE Patient seen and examined. Shortness of breath overall improving cough improved REVIEW OF SYSTEMS Negative for 12 system except mentioned SUBJECTIVE OBJECTIVE Wt Readings from Last 3 Encounters: 09/02/24 100.2 kg (220 lb 14.4 oz) 08/24/24 106.6 kg (235 lb) 08/03/24 103 kg (227 lb) Temp: 98.5 ??F (36.9 ??C) BP Readings from Last 3 Encounters: 09/02/24 137/75 08/24/24 131/78 08/03/24 116/72 Pulse Readings from Last 3 Encounters: 09/02/24 91 08/24/24 68 08/03/24 72 PHYSICAL EXAMINATION: General Appearance: Moderately built and nourished. Alert,oriented to time ,place and Person. Head: atraumatic, normocephalic. Eyes: Pupils equal and reactive to light. No discharge.no nystagmus. Ears: Normal Tympanic membrane and external ear canal . Throat: Lips, mucosa, and tongue,teeth and gums normal. Neck: Supple, symmetrical, trachea midline, no adenopathy; thyroid: No enlargement/tenderness/nodules; no carotid bruit or JVD Lungs: C decreased breath sounds at bases heart: S1 and S2 normal, no murmur, rub or gallop . Abdomen: Soft,non-tender, bowel sounds active all four quadrants, no masses, no organomegaly detected. Extremities: Mild edema pulses: 2+ and symmetric all extremities Lymph nodes: Cervical, supraclavicular, and axillary nodes normal Neurologic: CNII-XII intact. Normal strength in the upper extremities, normal in both lower extremities, sensation and reflexes normal throughout.no disdiadochokinesia LABS: Recent Labs 08/31/24 1035 09/01/24 0819 09/02/24 0741 WBC 11.40* 11.52* 13.53* HGB 10.9* 11.6* 12.5 HCT 34.9* 36.8* 40.1 MCV 93.3 91.3 92.8 PLT 85* 100* 130* RBC 3.74* 4.03* 4.32* Recent Labs 08/31/24 1035 09/01/24 0819 09/02/24 0030 09/02/24 0741 ALT 22 20 -- 21 AST 19 23 -- 18 CO2 23.8 21.2 27.0 25.8 CL 106 110 112 113 GLU 103 121* 282* 228* K 5.0 4.9 4.2 4.1 NA 135* 141 143 145 BUN 77* 70* 68* 68* Intake/Output Summary (Last 24 hours) at 09/02/2024 1223 Last data filed at 09/02/2024 1158 Gross per 24 hour Intake 340 ml Output 4420 ml Net -4080 ml Microbiology Results (last 14 days) Procedure Component Value Units Date/Time CULTURE, BACTERIA BLOOD X2 [[id number]] Collected: 08/31/24 103 Order Status: Completed Lab Status: Preliminary result Updated: 08/31/242108 Specimen: BLOOD SPEC DESCRIPTION BLOOD SPECIAL REQUESTS NO SPECIAL REQUEST CULTURE RESULT NO GROWTH <24 HRS Radiology MEDICATIONS Scheduled medications allopurinol 300 mg Oral Daily aspirin 81 mg Oral Daily atorvastatin 80 mg Oral Nightly at bedtime carvedilol 3.125 mg Oral BID clotrimazole-betamethasone Topical Q12H empagliflozin 25 mg Oral Daily folic acid 1 mg Oral Daily insulin lispro 0-6 Units Subcutaneous 4x Daily AC and at bedtime mometasone-formoterol 2 puff Inhalation 2 times daily nystatin Topical BID pantoprazole EC 40 mg Oral Daily pregabalin 150 mg Oral BID sertraline 50 mg Oral Daily tiotropium 2 puff Inhalation Daily torsemide 20 mg Oral Daily traZODone 300 mg Oral Nightly at bedtime warfarin (COUMADIN) pharmacy to dose Oral See Admin Instructions warfarin 2 mg Oral Once Infusion PRN acetaminophen, albuterol sulfate HFA, HYDROcodone-acetaminophen, HYDROmorphone, hydrOXYzine, naLOXone, ondansetron, polyethylene glycol ROOM SUPERVISOR * Aaliyah KearnsD, [facility] - 09/02/2024 11:03 AM CST Warfarin - Pharmacy Dosing Service Note Obie Sims is a 69-year-old male for which pharmacy has been consulted to dose warfarin for A.fib. Goal INR is 2-3. Warfarin Order Set Activated: Yes Warfarin Start Date: continuation from home Past Medical History: Diagnosis Date Abnormal ankle brachial index ([facility]) Acute on chronic heart failure, unspecified heart failure type ([facility]) Anxiety Aortic valve stenosis Arthritis Asthma, mild persistent ([facility]) 04/06/2021 Atrial fibrillation ([facility]) s/p PVI/[facility] 10/2015 Bilateral leg pain Carotid disease, bilateral ([facility]) CHF (congestive heart failure) ([facility]) Claudication ([facility]) COPD (chronic obstructive pulmonary disease) ([facility]) Coronary artery disease Diabetes mellitus, type II ([facility]) Edema 04/19/2018 2+ pitting History of blood transfusion Hyperlipidemia Hypertension LV dysfunction Non-pressure chronic ulcer of left calf limited to breakdown of skin ([facility]) 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 breakdown of skin ([facility]) Osteoarthritis PAD (peripheral artery disease) ([facility]) Pneumonia Restless leg syndrome S/P aortic valve replacement with bioprosthetic valve 2013 SOB (shortness of breath) Stroke (CMS/HCC HHS/HCC) Varicose veins of bilateral lower extremities with other complications Weight gain with edema Home warfarin dose: warfarin 2 mg po daily per med rec Bridging agent: none Vitamin K use: No; (if yes, indicate date, dose, and route) Diet: PO Recent Labs Lab 08/31/24 1035 09/01/24 0819 09/02/24 0030 09/02/24 0741 HGB 10.9* 11.6* -- 12.5 HCT 34.9* 36.8* -- 40.1 PLT 85* 100* -- 130* AST 19 23 -- 18 ALT 22 20 -- 21 ALKP 125* 135* -- 139* ALB 3.0* 3.0* < > 3.1* < > = values in this interval not displayed. Date INR Dose Received 08/28 5.4 per [facility] paperwork - 08/29 - - 08/30 2.7 2 mg at [facility] 08/31 1.8 - 09/01 1.6 2 mg 09/02 1.9 2 mg Drug interactions: Potential to increase INR: - Potential to decrease INR: - Potential to increase the risk of bleeding: aspirin, sertraline Warfarin Sensitivity: moderate, based on the following risk factors: thrombocytopenia, end state renal disease or Scr > 2.2, and age 66-79. Hgb/Hct today are stable INR today is Subtherapeutic The plan is to give a 2 mg dose once tonight and recheck an INR in the morning to assist with subsequent dosing. Pharmacy will continue to monitor labs and notes daily, adjusting the dose as clinically appropriate. Thank you for the consult. Pharmacy to dose per Dr. Neftali CHAN, PharmD, [facility] Phone number: [phone] 09/02/2024 11:03 AM ROOM SUPERVISOR * Leo Ibrahim MD - 09/02/2024 10:49 AM CST [facility] Nephrology Progress Note Obie Sims is a 69-year-old male patient. HPI 69-year-old gentleman with past medical history significant for CKD stage III, atrial fibrillation,heart failure with reduced ejection fraction, coronary disease, aortic stenosis status post bioprosthetic aortic valve placement, pulmonary hypertension, COPD, obstructive sleep apnea, dyslipidemia, diabetes mellitus type 2, stroke, anxiety, hypertension, restless leg syndrome who presented due to BRITTANY and hyperkalemia. Patient had a fall on 08/18/2024, initially declined treatment but ultimately presented to outside ED 2 days ago with rib pain and knee pain. He also reported shortness of breath and lower extremity swelling. His creatinine was found to be 2 with potassium 5.9. Patient transferred to [facility] for BRITTANY and hyperkalemia management. Nephrology consulted to manage kidney disease Subjective Blood pressure stable without complaints of lightheadedness or dizziness. He states his lower extremity swelling is resolved. 2. He states he is overall feeling better and that he is not currently having any shortness of breath. However, does report some shortness of breath with activity. 3. Tolerating Oneill catheter without complaints of dysuria. Review Of Systems 10 point ROS is negative unless stated in the HPI Current Facility-Administered Medications Medication Dose Route Frequency Provider Last Rate Last Admin acetaminophen (TYLENOL) tablet 650 mg 650 mg Oral Q4H PRN KERVIN Christianson-MIAN albuterol sulfate HFA 108 (90 Base) MCG/ACT inhaler 2 puff 2 puff Inhalation Q4H PRN ALONDRA Christianson allopurinol (ZYLOPRIM) tablet 300 mg 300 mg Oral Daily KERVIN Christianson-BC 300 mg at aspirin chewable tablet 81 mg 81 mg Oral Daily Shereen Duncan NP 81 mg at 09/02/24 0936 atorvastatin (LIPITOR) tablet 80 mg 80 mg Oral Nightly at bedtime KERVIN Christianson-BC 80 mg at 09/01/24 2254 carvedilol (COREG) tablet 3.125 mg 3.125 mg Oral BID ALONDRA Christianson 3.125 mg at clotrimazole-betamethasone (LOTRISONE) cream Topical Q12H ALONDRA Christianson empagliflozin (JARDIANCE) tablet 25 mg 25 mg Oral Daily RAVEN Christianson BC 25 mg at folic acid (FOLVITE) tablet 1 mg 1 mg Oral Daily ALONDRA Christianson 1 mg at 09/02/24 0936 HYDROcodone-acetaminophen (NORCO) 5-325 MG tablet 1 tablet 1 tablet Oral Q4H PRN ALONDRA Christianson HYDROmorphone (DILAUDID) injection 0.2 mg 0.2 mg Intravenous Q2H PRN ALONDRA Christianson hydrOXYzine (ATARAX) tablet 50 mg 50 mg Oral TID PRN ALONDRA Christianson insulin lispro (HUMALOG/ADMELOG) injection 0-6 Units 0-6 Units Subcutaneous 4x Daily AC and at bedtime Jean Lindsay MD 1 Units at 09/02/24 0736 mometasone-formoterol (DULERA) 100-5 MCG/ACT inhaler 2 puff 2 puff Inhalation 2 times daily ALONDRA Christianson 2 puff at 09/02/24 0736 naLOXone (NARCAN) injection 0.4 mg 0.4 mg Intravenous PRN ALONDRA Chrisitanson nystatin (MYCOSTATIN) powder Topical BID ALONDRA Christianson Given at 09/02/24 0936 ondansetron (ZOFRAN) injection 4 mg 4 mg Intravenous Q8H PRN ALONDRA Christianson pantoprazole EC (PROTONIX) tablet 40 mg 40 mg Oral Daily RAVEN Christianson 40 mg at 09/02/24 0936 polyethylene glycol (GLYCOLAX) packet 17 g 17 g Oral Daily PRN ALONDRA Christianson pregabalin (LYRICA) capsule 150 mg 150 mg Oral BID RAVEN ChristiansonBC 150 mg at 09/02/24 0936 sertraline (ZOLOFT) tablet 50 mg 50 mg Oral Daily RAVEN ChristiansonBC 50 mg at 09/02/24 0936 tiotropium (SPIRIVA RESPIMAT) 2.5 MCG/ACT inhaler 2 puff 2 puff Inhalation Daily RAVEN ChristiansonBC 2 puff at 09/01/24 0831 traZODone (DESYREL) tablet 300 mg 300 mg Oral Nightly at bedtime Zaria Good Shari, [facility] 300 mg at 09/01/24 2254 warfarin (COUMADIN) pharmacy to dose placeholder Oral See Admin Instructions Jean Lindsay MD Review of patient's allergies indicates: No Known Allergies Principal Problem: CHF exacerbation (CMS/HCC HHS/HCC) SNOMED CT(R): ACUTE EXACERBATION OF CHRONIC CONGESTIVE HEART FAILURE Filed Vitals: 09/01/24 2353 09/02/24 0455 09/02/24 0500 09/02/24 0834 BP: 139/79 116/45 (!) 148/80 Pulse: 92 100 (!) 113 Resp: 18 18 20 Temp: 98.4 ??F (36.9 ??C) 98.1 ??F (36.7 ??C) 98.5 ??F (36.9 ??C) TempSrc: Oral Oral Oral SpO2: 92% 91% 92% Weight: 100.2 kg (220 lb 14.4 oz) Height: Last 3 Recorded Weights 08/31/24 0947 09/02/24 0500 Weight: 109.8 kg (242 lb 1 oz) 100.2 kg (220 lb 14.4 oz) Intake/Output Summary (Last 24 hours) at 09/02/2024 1049 Last data filed at 09/02/2024 0500 Gross per 24 hour Intake 340 ml Output 5600 ml Net -5260 ml Physical Exam: -GENERAL: No acute distress, breathing comfortably, very mildly labored when talking. -EYES: Extraocular movements intact. -ENT: Neck supple, Septum is midline. DRY oral mucosa. -LUNG: Very mild crackles appreciated. No wheezes, No crackles. -CVS: Regular rate, irregularly irregular rhythm, S1 and S2 normal, No murmurs. -ABDOMEN: Soft, nondistended, Nontender, Bowel sounds observed. -EXT: No bilateral lower Ext edema. Gauze wraps around bilateral lower legs. -NEURO: Alert, awake, oriented x3, No gross neuro deficit -SKIN: Skin color, texture, turgor normal. No rashes or lesions LABs Recent Labs Lab 08/31/24 1035 09/01/24 0819 01/11/2909/02/24 0741 NA 135* 141 143 145 K 5.0 4.9 4.2 4.1 CL 106 110 112 113 CO2 23.8 21.2 27.0 25.8 AGAP 5.2 9.8 4.0 6.2 BUN 77* 70* 68* 68* CR 2.84* 2.28* 2.26* 2.00* GLU 103 121* 282* 228* CA 8.9 9.7 9.6 9.8 MAGNESIUM -- 2.5 -- -- PHOS -- -- 3.6 -- Recent Labs Lab 08/31/24 1035 09/01/24 0819 09/02/24 0741 WBC 11.40* 11.52* 13.53* RBC 3.74* 4.03* 4.32* HGB 10.9* 11.6* 12.5 HCT 34.9* 36.8* 40.1 MCV 93.3 91.3 92.8 MCH 29.1 28.8 28.9 MCHC 31.2* 31.5* 31.2* PLT 85* 100* 130* RDW 16.1* 16.0* 15.9* MPV 11.8* 12.7* 12.9* Assessment/Plan: 69-year-old gentleman with past medical history significant for CKD stage III, atrial fibrillation,heart failure with reduced ejection fraction, coronary disease, aortic stenosis status post bioprosthetic aortic valve placement, pulmonary hypertension, COPD, obstructive sleep apnea, dyslipidemia, diabetes mellitus type 2, stroke, anxiety, hypertension, restless leg syndrome who presented due to BRITTANY and hyperkalemia. Patient had a fall on 08/18/2024, initially declined treatment but ultimately presented to outside ED 2 days ago with rib pain and knee pain. He also reported shortness of breath and lower extremity swelling. His creatinine was found to be 2 with potassium 5.9. Patient transferred to [facility] for BRITTANY and hyperkalemia management. BRITTANY on CKD stage III -Baseline creatinine 1.3-1.5. Patient also follows with Dr. Beltran -At outside hospital creatinine was 2.0, patient received fluids and creatinine increased to 2.8. This is likely related to hemodynamics/fluid overload. -Renal ultrasound showed suboptimal visualization of right kidney. No right sided hydronephrosis. No increase echogenicity. Right kidney 11.6 cm. Left kidney was not seen. -CPK normal, urinalysis 3+ blood and a mild protein WBCs 27 RBCs greater than 182, urine sodium of 88. Remainder of BRITTANY serology pending. -Chest x-ray shows pulmonary vascular congestion and interstitial edema -Creatinine currently improved at 2.2-->2.0 with a BUN of 68 on furosemide 80 mg IVP daily. -Net negative of 6.8 L and does appear mildly intravascularly dry on labs, but has lots of peripheral edema still. Will transition to torsemide 20 mg daily and continue to monitor for diuretic dose adjustment-we may need to increase the dose a bit if he does not have an adequate response. 2. HTN. Blood pressure stable on carvedilol 3.125 mg twice daily and diuretics as noted above. -Continue to avoid STEVIE/ARB 3. Anemia of chronic disease. Hemoglobin stable at 12.5 4. Electrolytes. -Potassium currently stable at 4.1 -Hyponatremia resolved with a current sodium of 145. 5. Renal osteodystrophy. Calcium of 9.7. Phosphorus of 3.6. 6. Disposition stable. Thank you for allowing me to participate in the care of this patient. We will continue to follow this patient with you. Please contact us with further questions. MARLIN HENRIQUEZ NP 09/02/2024 ROOM SUPERVISOR ROOM SUPERVISOR ROOM SUPERVISOR * Edd Ross RN - 09/02/2024 12:46 AM CST Problem: Discharge Planning Goal: Knowledge [...] Absence of new skin breakdown Outcome: Progressing ROOM SUPERVISOR * Radha Clayton, PharmD - 09/01/2024 3:10 PM CST Warfarin - Pharmacy Dosing Service Note Obie Sims is a 69-year-old male for which pharmacy has been consulted to dose warfarin for A.fib. Goal INR is 2-3. Warfarin Order Set Activated: Yes Warfarin Start Date: continuation from home Past Medical History: Diagnosis Date Abnormal ankle brachial index (STELLA) Acute on chronic heart failure, unspecified heart failure type ([facility]) Anxiety Aortic valve stenosis Arthritis Asthma, mild persistent ([facility]) 04/06/2021 Atrial fibrillation ([facility]) s/p PVI/[facility] 10/2015 Bilateral leg pain Carotid disease, bilateral ([facility]) CHF (congestive heart failure) ([facility]) Claudication ([facility]) COPD (chronic obstructive pulmonary disease) ([facility]) Coronary artery disease Diabetes mellitus, type II ([facility]) Edema 04/19/2018 2+ pitting History of blood transfusion Hyperlipidemia Hypertension LV dysfunction Non-pressure chronic ulcer of left calf limited to breakdown of skin ([facility]) 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 breakdown of skin ([facility]) Osteoarthritis PAD (peripheral artery disease) ([facility]) Pneumonia Restless leg syndrome S/P aortic valve replacement with bioprosthetic valve 2013 SOB (shortness of breath) Stroke ([facility]) Varicose veins of bilateral lower extremities with other complications Weight gain with edema Home warfarin dose: warfarin 2 mg po daily per med rec Bridging agent: none Vitamin K use: No; (if yes, indicate date, dose, and route) Diet: PO Recent Labs Lab 08/31/24 1035 09/01/24 0819 HGB 10.9* 11.6* HCT 34.9* 36.8* PLT 85* 100* AST 19 23 ALT 22 20 ALKP 125* 135* ALB 3.0* 3.0* Date INR Dose Received 08/28 5.4 per [facility] paperwork - 08/29 - - 08/30 2.7 2 mg at [facility] 1/9 1.8 - 09/01 1.6 2 mg Drug interactions: Potential to increase INR: - Potential to decrease INR: - Potential to increase the risk of bleeding: aspirin, sertraline Warfarin Sensitivity: moderate, based on the following risk factors: thrombocytopenia, end state renal disease or Scr > 2.2, and age 66-79. Hgb/Hct today are stable INR today is Subtherapeutic The plan is to give a 2 mg dose once tonight and recheck an INR in the morning to assist with subsequent dosing. Pharmacy will continue to monitor labs and notes daily, adjusting the dose as clinically appropriate. Thank you for the consult. Pharmacy to dose per Dr. Neftali CLAYTON, PharmD Phone number: [phone] 09/01/2024 3:11 PM ROOM SUPERVISOR * Mel Thomas RN - 09/01/2024 2:27 PM CST Images from the original note were not included. 09/01/244 09/01/24 1346 Wound 08/31/24 Sacrum Date First Assessed/Time First Assessed: 08/31/24 0900 Present on Original Admission: Yes Location:Sacrum Wound Image -- Wound Bed Assessment -- Partial Thickness;[place] Anya-wound Assessment -- Blanchable erythema Wound Length (cm) -- 4 cm Wound Width (cm) -- 0.1 cm Wound Depth (cm) -- 0.2 cm Wound Surface Area (cm^2) -- 0.4 cm^2 Drainage Amount -- Small Drainage Description -- Serosanguineous Drainage odor -- None Interventions -- Cleansed;Site care Dressing -- Foam border adhesive Dressing Changed -- Changed Dressing Status -- Clean;Dry;Intact Wound 09/01/24 Pretibial Right Date First Assessed/Time First Assessed: 09/01/241333 Location: Pretibial Wound Location Orientation: Right Wound Image -- Wound Bed Assessment Full Thickness;Partial Thickness;Yellow -- Anya-wound Assessment Hyperpigmented;Fragile;Dry -- Wound Length (cm) 5 cm -- Wound Width (cm) 3 cm -- Wound Surface Area (cm^2) 15 cm^2 -- Interventions Cleansed;Site care -- Dressing Foam, silver impregnated;Kerlix/Silverio;Tubigrip -- Dressing Changed Changed -- Dressing Status Clean;Dry;Intact -- Wound care visit for BLE and coccyx site. Patient follows at [facility] wound care center for BLE. Last seen on 08/14/24, Ble has healed, wasDC from , had f/u appointment in a month for skin check. Per patient, wound redeveloped to his R leg prior to his fall. Reports daughter doing dressing changes at home. Reports wearing compression sleeves at home to BLE. BLE- Evidence of hemosiderin staining. No open areas on L leg, only dry crusted skin. R lateral legsite, 2 open areas and denuded periwound. Cleansed BLE, applied lotion, then silver foam to wound bed, kerlix secured. Applied bilateral tubigrip guitar repair technician size F to legs midfoot to below the knee. Turned patient with PCT. Per PCT, patient can not tolerate HOB flat for long periods of time, oxygen destat. Oneill in place. Stool incontinent. Stage 2 pressure injury at coccyx to intergluteal cleft, linear partial thickness wound. Applied nystatin to area, then foam dressing over. Nystatin powder already being used for groin. Checked groin site, erythema present. Recommendations: -BLE- cleanse with no rinse foam cleanser, water, and towels daily. Afterwards, apply lotion to legs daily. Tubigrip compression sleeves from bilateral mid foot to below the knees. Remove and reapplydaily for hygiene and skin checks. -R leg wound- Apply ag foam to open area, secure with kerlix. Change every 3 days and PRN. - Use of waffle cushion while in chair, limit chair time to 1 hour - Q2 hourly turns while in bed - HOB less than 30 degrees to help with friction and shear prevention UNLESS CONTRAINDICATED. -GOLDEN bed ROOM SUPERVISOR * Lakhwinder Angeles, CONSTANTIN - 09/01/2024 12:15 PM CST Speech Pathology Video Oropharyngeal Swallow Study (MOUSTAPHA) Recommended Diet: Soft and Bite Size Solids and Moderately Thick Liquids *Please discontinue diet if clinical signs of aspiration are observed with intake or worsening respiratory status Recommendations: Medications whole with puree Strict aspiration precautions: seated upright and alert with intake, go slow, small bites ans sips Could consider ENT consult to evaluate the integrity of the larynx if dysphonia persist Continue skilled ST for dysphagia management Assessment: This patient presents with moderate oropharyngeal dysphagia characterized by prolonged mastication of hard solids with incomplete oral bolus transport and a delayed, weakened pharyngeal swallow. Patient with sustained penetration of thin liquids which did not improve with use of a chin tuck this date. Patient also with what appears to be penetration of residuals with thin liquids which was noted during subsequent trials. Patient's cued cough is not productive at clearing contrast from the laryngeal vestibule as well. Patient initially tolerated trials of mildly thick liquids without helen penetration; however, as the assessment progressed, there were episodes of laryngeal penetra tion without complete ejection observed. Patient with single episode of flash penetration with moderately thick liquids and no helen penetration of puree solids or hard solids this date. This patient remains at risks aspiration and related complications given his generalized weakness, unproductive cued cough, limited insight into aspiration and related complications, and known oropharyngeal dysphagia. He would benefit from strict aspiration precautions and continued skilled ST. Objective: This patient was seen in radiology for Video Oropharyngeal Swallow Study (MOUSTAPHA) with a left lateral view. Patient accepted barium trials of thin liquid, mildly thick liquid (nectar), moderately thick liquid (honey), pureed, and hard solid consistencies. Oral Stage: Patient with adequate lip closure around spoon, straw, and edge of cup with interlabialescape but no progression to anterior lip of bolus noted. Patient with prolonged mastication with complete re-collection of solids. Initiation of lingual motion was delayed with incomplete bolus transport. Mild- moderate amount of residue remained within oral cavity after bolus transport and initiation of the swallow with hard solids; however, these were swallowed with a subsequent swallow. Pharyngeal Stage: Initiation of the pharyngeal swallow was delayed with bolus head in the pyriform sinuses. Soft palate elevation was complete with no contrast visualized between soft palate and pharyngeal wall. Laryngeal elevation was complete; anterior excursion of the larynx was reduced; epiglottic inversion/movement was incomplete; laryngeal vestibular closure was incomplete with narrow column of air/contrast in the laryngeal vestibule; pharyngeal stripping wave was complete; tongue base retraction was reduced with narrow column of contrast/air visualized between tongue base and posteriorpharyngeal wall. There were trace residuals in the valleculae after the swallow of moderately thickliquid. Patient with shallow, flash penetration with complete ejection of moderately thick liquid during the swallow on the initial trial. No further episodes observed with additional trials of moderately thick liquid. Patient with laryngeal penetration without complete ejection of mildly thick liquid during the swallow as trials continued. Patient with sustained laryngeal penetration without complete ejection of thin liquid during the swallow and after the swallow of residuals. Use of cued cough did not eject contrast from the laryngeal vestibule. Patient with no helen penetration of puree solids and hard solids this date. Patient with no helen tracheal aspiration of all barium consistencies offered this date. The following compensatory strategies were attempted during examination this date: Chin Tuck: Use of a chin tuck with thin liquids did not improve swallow safety. Bolus Hold: Use of a bolus hold with mildly thick liquids did not improve swallow safety. Penetration-Aspiration Scale: Thin Liquids: 3 - Material enters the airway, remains above the vocal folds, and is not ejected from the airway. Mildly Thick Liquids: 3 - Material enters the airway, remains above the vocal folds, and is not ejected from the airway. Moderately Thick Liquids: 2 - Material enters the airway, remains above the vocal folds, and is ejected from the airway. Pureed: 1 - Material does not enter airway. Hard Solids: 1 - Material does not enter airway. Please note performance on MOUSTAPHA may not reflect oropharyngeal swallow function in its entirety as it is a small snapshot in time and external factors may negatively impact overall function such as fatigue, bite size, rate of intake, positioning, level of alertness, and accurate thickening/modification of diet at bedside. Please refer to the radiologist's report for further details and to [facility] for images. 09/01/24 1100 Therapy Visit CYTOLOGY TEACHER Received on 08/31/24 CYTOLOGY TEACHER Evaluation Completed on 08/31/24 Subjective Patient seen alert and upright in MOUSTAPHA chair. Patient intermittently confused. Reason for Admission Per EMR, Obie Sims is an 69-year-old male with a past medical history of CKD stage III, atrial fibrillation on warfarin, heart failure with reduced ejection fraction, coronary artery disease, aortic stenosis status post bioprosthetic aortic valve replacement, pulmonary hypertension, COPD/asthma, obstructive sleep apnea, hyperlipidemia, diabetes mellitus type 2, CVA, carotid disease, anxiety/depression, hypertension, PAD, and RLS. He was transferred to [facility] with BRITTANY and hyperkalemia. ST consulted due to concerns for aspiration at [facility]. Prior Level of Function General diet and Thin Liquids Living situation Home Mental status Alert;Responsive;Confused Verified Two Patient Identifiers Yes Patient consents to Therapy Yes Inpatient CYTOLOGY TEACHER Time Calculation CYTOLOGY TEACHER Start Time 08 CYTOLOGY TEACHER Stop Time 0859 CYTOLOGY TEACHER Time Calculation (min) 13 min Precautions Precautions Aspiration;Supplemental oxygen Instructed on Precautions Yes;Needs reinforcement and education Pain Pain Patient does not offer or c/o pain CYTOLOGY TEACHER Recommendations Ongoing Recommendations CYTOLOGY TEACHER during hospitalization Previous Diet NPO Recommended Solid Diet Level 6 Soft and bite-sized Transitional Food Permitted No Recommended Liquid Consistency Level 3 Moderately thick Recommended Medication Form Whole;With Level 4 Puree Recommended Safety Precautions Slow rate: swallow between bites;Small sips and bites when eating;Upin chair;Fully upright for all PO intake;1:1 close supervision for meals;Reduce distractions Understanding of information was judged to be inadequate by patient Results/Recommendations discussed with RN, MD, and patient Plan CYTOLOGY TEACHER Treatments/Interventions Swallowing treatment Progress Progressing toward goals CYTOLOGY TEACHER Frequency 3 times/week;4 times/week CYTOLOGY TEACHER Next Appointment 09/01/24 If this is the last treatment note, it will serve as the discharge summary Yes End of Session End of Session Safety Nursing aware of session;Other (Comment) (with tech for transfer) ROOM SUPERVISOR * Marlin Henriquez NP - 09/01/2024 11:20 AM CST [facility] Nephrology Progress Note Obie Sims is a 69-year-old male patient. HPI 69-year-old gentleman with past medical history significant for CKD stage III, atrial fibrillation,heart failure with reduced ejection fraction, coronary disease, aortic stenosis status post bioprosthetic aortic valve placement, pulmonary hypertension, COPD, obstructive sleep apnea, dyslipidemia, diabetes mellitus type 2, stroke, anxiety, hypertension, restless leg syndrome who presented due to BRITTANY and hyperkalemia. Patient had a fall on 08/18/2024, initially declined treatment but ultimately presented to outside ED 2 days ago with rib pain and knee pain. He also reported shortness of breath and lower extremity swelling. His creatinine was found to be 2 with potassium 5.9. Patient transferred to [facility] for BRITTANY and hyperkalemia management. Nephrology consulted to manage kidney disease Subjective Blood pressure stable without complaints of lightheadedness or dizziness. He states his lower extremity swelling is improved with furosemide. 2. He continues to report some mild shortness of breath but states that it is improved. 3. Tolerating Oneill catheter without complaints of dysuria. Review Of Systems 10 point ROS is negative unless stated in the HPI Current Facility-Administered Medications Medication Dose Route Frequency Provider Last Rate Last Admin acetaminophen (TYLENOL) tablet 650 mg 650 mg Oral Q4H PRN ALONDRA Christianson albuterol sulfate HFA 108 (90 Base) MCG/ACT inhaler 2 puff 2 puff Inhalation Q4H PRN ALONDRA Christianson allopurinol (ZYLOPRIM) tablet 300 mg 300 mg Oral Daily RAVEN ChristiansonBC 300 mg at aspirin chewable tablet 81 mg 81 mg Oral Daily Shereen Duncan DEFENSE ATTORNEY 81 mg at 09/01/24 1016 atorvastatin (LIPITOR) tablet 80 mg 80 mg Oral Nightly at bedtime ALONDRA Christianson carvedilol (COREG) tablet 3.125 mg 3.125 mg Oral BID ALONDRA Christianson 3.125 mg at clotrimazole-betamethasone (LOTRISONE) cream Topical Q12H ALONDRA Christianson empagliflozin (JARDIANCE) tablet 25 mg 25 mg Oral Daily ALONDRA Christianson folic acid (FOLVITE) tablet 1 mg 1 mg Oral Daily ALONDRA Christianson 1 mg at 09/01/24 1017 furosemide (LASIX) injection 80 mg 80 mg Intravenous Daily RAVEN ChristiansonBC 80 mg at 09/01/24 1016 HYDROcodone-acetaminophen (NORCO) 5-325 MG tablet 1 tablet 1 tablet Oral Q4H PRN ALONDRA Christianson HYDROmorphone (DILAUDID) injection 0.2 mg 0.2 mg Intravenous Q2H PRN ALONDRA Christianson hydrOXYzine (ATARAX) tablet 50 mg 50 mg Oral TID PRN ALONDRA Christianson insulin lispro (HUMALOG/ADMELOG) injection 0-6 Units 0-6 Units Subcutaneous Q6H ALONDRA Christianson mometasone-formoterol (DULERA) 100-5 MCG/ACT inhaler 2 puff 2 puff Inhalation 2 times daily ALONDRA Christianson 2 puff at 09/01/24 0831 naLOXone (NARCAN) injection 0.4 mg 0.4 mg Intravenous PRN ALONDRA Christianson nystatin (MYCOSTATIN) powder Topical BID ALONDRA Christianson Given at 09/01/24 1016 ondansetron (ZOFRAN) injection 4 mg 4 mg Intravenous Q8H PRN ALONDRA Christianson pantoprazole EC (PROTONIX) tablet 40 mg 40 mg Oral Daily RAVEN Christianson 40 mg at 09/01/24 1017 polyethylene glycol (GLYCOLAX) packet 17 g 17 g Oral Daily PRN ALONDRA Christianson pregabalin (LYRICA) capsule 150 mg 150 mg Oral BID RAVEN ChristiansonBC 150 mg at 09/01/24 1016 sertraline (ZOLOFT) tablet 50 mg 50 mg Oral Daily ALONDRA Christianson 50 mg at 09/01/24 1017 tiotropium (SPIRIVA RESPIMAT) 2.5 MCG/ACT inhaler 2 puff 2 puff Inhalation Daily ALONDRA Christianson 2 puff at 09/01/24 0831 traZODone (DESYREL) tablet 300 mg 300 mg Oral Nightly at bedtime ALONDRA Christianson No Known Allergies Principal Problem: CHF exacerbation ([facility]) SNOMED CT(R): ACUTE EXACERBATION OF CHRONIC CONGESTIVE HEART FAILURE Filed Vitals: 08/31/24 1910 09/01/24 0002 09/01/24 0329 09/01/24 0801 BP: (!) 150/80 138/81 (!) 140/91 (!) 150/71 Pulse: 91 60 97 98 Resp: 20 18 18 22 Temp: 98 ??F (36.7 ??C) 98.6 ??F (37 ??C) 97.5 ??F (36.4 ??C) 97.8 ??F (36.6 ??C) TempSrc: Oral Oral Oral Oral SpO2: 94% 90% 93% 92% Weight: Height: Last 3 Recorded Weights 08/31/24 0947 Weight: 109.8 kg (242 lb 1 oz) Intake/Output Summary (Last 24 hours) at 09/01/2024 1120 Last data filed at 09/01/2024 0100 Gross per 24 hour Intake 0 ml Output 2500 ml Net -2500 ml Physical Exam: -GENERAL: No acute distress, breathing comfortably very mildly labored when talking. -EYES: Extraocular movements intact. -ENT: Neck supple, Septum is midline. Moist oral mucosa. -LUNG: Clear to auscultation bilaterally, No wheezes, No crackles. -CVS: Regular rate, irregularly irregular rhythm, S1 and S2 normal, No murmurs. -ABDOMEN: Soft, nondistended, Nontender, Bowel sounds observed. -EXT: Trace bilateral lower Ext edema. Gauze wraps around bilateral lower legs. -NEURO: Alert, awake, oriented x3, No gross neuro deficit -SKIN: Skin color, texture, turgor normal. No rashes or lesions LABs Recent Labs Lab 08/31/24 1035 09/01/24 0819 NA 135* 141 K 5.0 4.9 CL 106 110 CO2 23.8 21.2 AGAP 5.2 9.8 BUN 77* 70* CR 2.84* 2.28* GLU 103 121* CA 8.9 9.7 MAGNESIUM -- 2.5 Recent Labs Lab 08/31/24 1035 09/01/24 0819 WBC 11.40* 11.52* RBC 3.74* 4.03* HGB 10.9* 11.6* HCT 34.9* 36.8* MCV 93.3 91.3 MCH 29.1 28.8 MCHC 31.2* 31.5* PLT 85* 100* RDW 16.1* 16.0* MPV 11.8* 12.7* Assessment/Plan: 69-year-old gentleman with past medical history significant for CKD stage III, atrial fibrillation,heart failure with reduced ejection fraction, coronary disease, aortic stenosis status post bioprosthetic aortic valve placement, pulmonary hypertension, COPD, obstructive sleep apnea, dyslipidemia, diabetes mellitus type 2, stroke, anxiety, hypertension, restless leg syndrome who presented due to BRITTANY and hyperkalemia. Patient had a fall on 08/18/2024, initially declined treatment but ultimately presented to outside ED 2 days ago with rib pain and knee pain. He also reported shortness of breath and lower extremity swelling. His creatinine was found to be 2 with potassium 5.9. Patient transferred to [facility] for BRITTANY and hyperkalemia management. BRITTANY on CKD stage III -Baseline creatinine 1.3-1.5. Patient also follows with Dr. Beltran -At outside hospital creatinine was 2.0, patient received fluids and creatinine increased to 2.8. This is likely related to hemodynamics/fluid overload. -Renal ultrasound showed suboptimal visualization of right kidney. No right sided hydronephrosis. No increase echogenicity. Right kidney 11.6 cm. Left kidney was not seen. -CPK normal, urinalysis 3+ blood and a mild protein WBCs 27 RBCs greater than 182, urine sodium of 88. Remainder of BRITTANY serology pending. -Chest x-ray shows pulmonary vascular congestion and interstitial edema -Creatinine currently improved at 2.2 with a BUN of 70 on furosemide 80 mg IVP daily. Will continue. 2. HTN. Blood pressure stable on carvedilol 3.125 mg twice daily and furosemide 80 mg IVP daily, Avoid ACEI/ARB 3. Anemia of chronic disease. Hemoglobin stable at 11.6. 4. Electrolytes. -Potassium currently stable at 4.9 -Hyponatremia resolved with a current sodium of 141. 5. Renal osteodystrophy. Calcium of 9.7. Will check Phos level. 6. Disposition stable. Thank you for allowing me to participate in the care of this patient. We will continue to follow this patient with you. Please contact us with further questions. MARLIN HENRIQUEZ NP 09/01/2024 Cosigned by Leo Ibrahim MD at 09/02/2024 2:20 PM WAX ROOM SUPERVISOR ROOM SUPERVISOR ROOM SUPERVISOR * Jose Valladares RN - 09/01/2024 10:57 AM CST Cardiac Rehabilitation is available for education and activity as deemed appropriate. Please place order for our services if needed. Thank you ROOM SUPERVISOR * Jean Lindsay MD - 09/01/2024 9:03 AM CST Images from the original note were not included. [employer] Hospitalist Progress note Chief Complain: BRITTANY CHF exacerbation ASSESSMENT /PLAN: Obie Sims is an 69-year-old male with a past medical history of CKD stage III, atrial fibrillation on warfarin, heart failure with reduced ejection fraction, coronary artery disease, aortic stenosis status post bioprosthetic aortic valve replacement, pulmonary hypertension, COPD/asthma, obstructive sleep apnea, hyperlipidemia, diabetes mellitus type 2, CVA, carotid disease, anxiety/depression, hypertension, PAD, and RLS. He was transferred to [facility] with BRITTANY and hyperkalemia. Acute on chronic heart failure with reduced ejection fraction Anasarca BRITTANY on CKD stage III improving Hyperkalemia, resolved Pulmonary hypertension Valvular heart disease Acute respiratory failure with hypoxia -Suspect cardiorenal syndrome. Patient received both diuretics and IV fluids at the outside facility. -Echocardiogram from February 2024 reveals an ejection fraction of 40 to 45% with bioprosthetic aortic valve, no central or periprosthetic aortic regurgitation, mild mitral regurgitation, and mild tricuspid regurgitation. -Creatinine 2.02-> 2.79-> 2.84. pending caretinine -BNP more than 8000. Chest x-ray shows cardiomegaly and interstitial edema. Volume overloaded on exam. -IV Lasix 80 mg daily. Continue current dose of Lasix no potassium supplementation. -Strict intake and output with daily weights. -Continue Oneill. -Hold Entresto in light of BRITTANY. Continue beta-kim and Jardiance. -[facility] nephrology consulted for assistance with diuresis and BRITTANY. -Oxygen to maintain saturations greater than 89%. Ground-level fall Rib fractures Generalized weakness -CT of the chest shows acute fractures of the seventh and eighth right ribs. -Up with assist, fall precautions. -PT/OT consult. -Pain control. -Incentive spirometer. Concern for aspiration Discussed with speech started on dysphagia diet Hematuria -UA negative. -Likely due to traumatic Oneill insertion and/or trauma to Oneill in setting of supratherapeutic INR.Initial UA with no RBCs. -Bleeding seems to be clearing, continue to monitor. Pharmacy to resume warfarin Atrial fibrillation Supratherapeutic INR, resolved -INR was 5.4 on presentation. INR dropping will have pharmacy resume Coumadin hemoglobin stable -Continue beta-kim for rate control. -Monitor telemetry. Diabetes mellitus type 2 -Continue Jardiance. Continue sliding scale insulin and Lantus as indicated Coronary artery disease Hypertension Hyperlipidemia -Heart catheterization from 2020 revealed a 60% proximal LAD stenosis, 50% ostial RCA stenosis, bioprosthetic aortic valve without aortic regurgitation, and severe pulmonary hypertension. -Historically not on aspirin. Continue beta-kim and statin. -Monitor telemetry. COPD/asthma overlap syndrome -Not in acute exacerbation. -Resume inhalers. CVA Carotid disease PAD -Continue aspirin and statin. Body mass index is 39.07 kg/m??. DVT prophylaxis: Resumed Coumadin Code status: DNR Disposition/Discharge plan: 3 days based on progress I have ordered, reviewed and interpreted all Labs . I have reviewed and interpreted all Imaging . Ihave reviewed,ordered and prescribed all necessary medications. I have reviewed and interpreted allconsultant notes. Case was discussed w/ the patient and/or POA. All questions were answered & concerns addressed. Case was also discussed with case management AND [employer]. JEAN LINDSAY MD 9:03 AM 09/01/2024 SUBJECTIVE Patient seen and examined. Shortness of breath overall improving cough improved REVIEW OF SYSTEMS Negative for 12 system except mentioned SUBJECTIVE OBJECTIVE Wt Readings from Last 3 Encounters: 08/31/24 109.8 kg (242 lb 1 oz) 08/24/24 106.6 kg (235 lb) 08/03/24 103 kg (227 lb) Temp: 97.8 ??F (36.6 ??C) BP Readings from Last 3 Encounters: 09/01/24 (!) 150/71 08/24/24 131/78 08/03/24 116/72 Pulse Readings from Last 3 Encounters: 09/01/24 (!) 51 08/24/24 68 08/03/24 72 PHYSICAL EXAMINATION: General Appearance: Moderately built and nourished. Alert,oriented to time ,place and Person. Head: atraumatic, normocephalic. Eyes: Pupils equal and reactive to light. No discharge.no nystagmus. Ears: Normal Tympanic membrane and external ear canal . Throat: Lips, mucosa, and tongue,teeth and gums normal. Neck: Supple, symmetrical, trachea midline, no adenopathy; thyroid: No enlargement/tenderness/nodules; no carotid bruit or JVD Lungs: C decreased breath sounds at bases heart: S1 and S2 normal, no murmur, rub or gallop . Abdomen: Soft,non-tender, bowel sounds active all four quadrants, no masses, no organomegaly detected. Extremities: Mild edema pulses: 2+ and symmetric all extremities Lymph nodes: Cervical, supraclavicular, and axillary nodes normal Neurologic: CNII-XII intact. Normal strength in the upper extremities, normal in both lower extremities, sensation and reflexes normal throughout.no disdiadochokinesia LABS: Recent Labs 08/31/24 1035 09/01/24 0819 WBC 11.40* 11.52* HGB 10.9* 11.6* HCT 34.9* 36.8* MCV 93.3 91.3 PLT 85* 100* RBC 3.74* 4.03* Recent Labs 08/31/24 1035 ALT 22 AST 19 CO2 23.8 CL 106 GLU 103 K 5.0 NA 135* BUN 77* Intake/Output Summary (Last 24 hours) at 09/01/2024 0903 Last data filed at 09/01/2024 0100 Gross per 24 hour Intake 0 ml Output 2500 ml Net -2500 ml Microbiology Results (last 14 days) Procedure Component Value Units Date/Time CULTURE, BACTERIA BLOOD X2 [[id number]] Collected: 08/31/24 1034 Order Status: Completed Lab Status: Preliminary result Updated: 08/31/242108 Specimen: BLOOD SPEC DESCRIPTION BLOOD SPECIAL REQUESTS NO SPECIAL REQUEST CULTURE RESULT NO GROWTH <24 HRS Radiology MEDICATIONS Scheduled medications allopurinol 300 mg Oral Daily aspirin 81 mg Oral Daily atorvastatin 80 mg Oral Nightly at bedtime carvedilol 3.125 mg Oral BID clotrimazole-betamethasone Topical Q12H empagliflozin 25 mg Oral Daily folic acid 1 mg Oral Daily furosemide 80 mg Intravenous Daily insulin lispro 0-6 Units Subcutaneous Q6H mometasone-formoterol 2 puff Inhalation 2 times daily nystatin Topical BID pantoprazole EC 40 mg Oral Daily pregabalin 150 mg Oral BID sertraline 50 mg Oral Daily tiotropium 2 puff Inhalation Daily traZODone 300 mg Oral Nightly at bedtime Infusion PRN acetaminophen, albuterol sulfate HFA, HYDROcodone-acetaminophen, HYDROmorphone, hydrOXYzine, naLOXone, ondansetron, polyethylene glycol ROOM SUPERVISOR * Adela Arredondo RN - 09/01/2024 8:40 AM CST 09/01/24 0840 Referral Data Source of Information Other Family Members Patient Information Primary Caregiver Self;Family Current living Situation Children;Family members Type of Residence Private residence Support System Immediate family Are you employed? Retired Recent Hospitalization Recent Hospitalization within 30 days Yes ([facility] D/C 08/03) Legal Information Guardianship Documentation Not applicable Legal forms Power of Battery Repairer for health care (daughter states he has, no paperwork on file) Baseline ADL's Functional Status Minimum assistance Active DME Four wheel walker;Front wheel walker;Oxygen;Hospital bed;Other (comment) (sock aid, shower chair, commode, chair lift, O2 is PRN but patient doesn't normally wear it) Communication Talks;Understands speaking;Understands Bangladeshi Current Services Being Provided Home Health [facility];Physical therapy ([facility] ) Other Services Non-medical help ([employer] 2 days/week for 3 hours each time) DC screening tool This is a screening [...] is: Patient expects to be discharged to: Other (Comment) (pending progress and PT/OT recs) Adequate Resources Available Adequate Resources Yes Attempted call to patient's room phone for remote CM assessment, no answer at this time. Spoke withpatient's daughter Bonnie via phone for remote CM assessment. Patient is from home with daughter, son in law, and their 2 kids. Patient has apartment like set up in their basement. Patient has chairlift, hospital bed, sock aid, FWW, rollator, shower chair, commode, O2 concentrator for PRN O2 but doesn't use. Patient has chore help through [employer] 2 days/week for 3 hours each time. Patient is current with [facility] for SN and PT Pharmacy [facility]. PCP Dr. Infante. Daughter is open to therapy recommendations. Interested in SWB if that is what is recommended. ROOM SUPERVISOR * Brit Gonzáles MD - 09/01/2024 7:35 AM CST [facility] PROGRESS NOTE Name:Obie Sims Age:69-year-old Sex:male :1955 CHIEF COMPLAINT: CHF SUBJECTIVE: Denies CP Tele reviewed: afib with CVR ASSESSMENT AND PLAN: # Acute on chronic HFrEF # BRITTANY on CKD (likely cardiorenal) # Paroxysmal Afib w/ CVR # CAD, last MPI 02/2024 - no ischemia # Carotid dz/PAD # Prosthetic AV w/ moderate stenosis TTE reviewed. LVEF overall stable, no change from prior TTE EF 43%, moderate to severely enlarged RV with depressed function. Moderate prosthetic AV stenosis. C/t diuresing AM labs pending Will c/t to monitor Patient Active Problem List Diagnosis S/P ablation of atrial fibrillation LV dysfunction Essential hypertension Mixed hyperlipidemia Diabetes mellitus, type II ([facility]/HCC HHS/HCC) Coronary artery disease involving robinson coronary artery of robinson heart without angina pectoris COPD (chronic obstructive pulmonary disease) ([facility]/HCC HHS/HCC) Carotid disease, bilateral (CMS/HCC) Arthritis Aortic stenosis Chronic anticoagulation Chronic atrial fibrillation ([facility]/HCC HHS/[facility]) S/P aortic valve replacement with bioprosthetic valve Varicose veins of bilateral lower extremities with other complications Abnormal ankle brachial index (STELLA) Claudication ([facility]) Pain in both lower extremities Abnormal finding on lung imaging Abnormal finding on pulmonary function testing Shortness of breath TIA (transient ischemic attack) Obstructive sleep apnea (adult) (pediatric) Pulmonary hypertension ([facility]) Asymptomatic carotid artery stenosis, bilateral Mild persistent asthma without complication ([facility]) Leg edema Other closed fracture of distal end of right fibula with routine healing, subsequent encounter NSTEMI (non-ST elevated myocardial infarction) ([facility]) Elevated troponin Elevated brain natriuretic peptide (BNP) level Fall CHF (congestive heart failure) ([facility]) Rib fractures CHF exacerbation ([facility]) 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 breakdown of skin ([facility]) Non-pressure chronic ulcer of left calf limited to breakdown of skin ([facility]) Chronic venous insufficiency Review of Systems: Review of Systems Constitutional: Positive for weakness. Negative for recent unintentional weight gain, recent unintentional weight loss and new or significant fatigue. HENT: Negative for new or significant hearing loss. Eyes: Negative for blurred vision and double vision. Respiratory: Positive for cough and shortness of breath. Negative for snoring. Cardiovascular: See HPI. Positive for leg swelling. Gastrointestinal: Negative for blood in stool and melena. Genitourinary: Negative for dysuria. Musculoskeletal: Negative for myalgias and new or worsening joint stiffness/pain. Skin: Negative for rash. Neurological: Negative for tingling/numbness and focal weakness. Endo/Heme/Allergies: Negative for new or significant bruising/bleeding and polydipsia. Psychiatric/Behavioral: Negative for depression and new or significant memory loss. Medications: Scheduled Meds: allopurinol 300 mg Oral Daily aspirin 81 mg Oral Daily atorvastatin 80 mg Oral Nightly at bedtime carvedilol 3.125 mg Oral BID clotrimazole-betamethasone Topical Q12H empagliflozin 25 mg Oral Daily folic acid 1 mg Oral Daily furosemide 80 mg Intravenous Daily insulin lispro 0-6 Units Subcutaneous Q6H mometasone-formoterol 2 puff Inhalation 2 times daily nystatin Topical BID pantoprazole EC 40 mg Oral Daily pregabalin 150 mg Oral BID sertraline 50 mg Oral Daily tiotropium 2 puff Inhalation Daily traZODone 300 mg Oral Nightly at bedtime Continuous Infusions: PRN Meds: acetaminophen, albuterol sulfate HFA, HYDROcodone-acetaminophen, HYDROmorphone, hydrOXYzine, naLOXone, ondansetron, polyethylene glycol OBJECTIVE Weight change in the last 24 hours: Body mass index is 39.07 kg/m??. Wt Readings from Last 3 Encounters: 08/31/24 109.8 kg (242 lb 1 oz) 08/24/24 106.6 kg (235 lb) 08/03/24 103 kg (227 lb) Intake/Output past 24 Hours: Intake/Output Summary (Last 24 hours) at 09/01/2024 0737 Last data filed at 09/01/2024 0100 Gross per 24 hour Intake 0 ml Output 2500 ml Net -2500 ml Filed Vitals: 08/31/24 1553 08/31/24 1910 09/01/24 0002 09/01/24 0329 BP: 109/56 (!) 150/80 138/81 (!) 140/91 Pulse: 81 91 60 97 Resp: 20 20 18 18 Temp: 97.7 ??F (36.5 ??C) 98 ??F (36.7 ??C) 98.6 ??F (37 ??C) 97.5 ??F (36.4 ??C) TempSrc: Oral Oral Oral Oral SpO2: 97% 94% 90% 93% Weight: Height: Physical Exam Constitutional: General: He is not in acute distress. Appearance: Normal appearance. He is well-developed. HENT: Nose: No mucosal edema. Mouth/Throat: Pharynx: No oropharyngeal exudate. Neck: Vascular: No JVD. Cardiovascular: Rate and Rhythm: Normal rate and regular rhythm. Chest Wall: PMI is not displaced. Heart sounds: S1 normal and S2 normal. [...] Behavior normal. Thought Content: Thought content normal. LABORATORY/INVESTIGATIONS: Recent Labs 08/31/24 1035 WBC 11.40* HGB 10.9* HCT 34.9* MCV 93.3 PLT 85* Recent Labs 08/31/24 1035 NA 135* K 5.0 CL 106 CO2 23.8 AGAP 5.2 BUN 77* CR 2.84* GLU 103 Recent Labs 08/31/24 1035 INR 1.8* Results for orders placed or performed during the hospital encounter of 08/31/24 PRO-BRAIN NATRIURETIC PEPTIDE (PRO BNP) Collection Time: 08/31/24 10:35 AM Result Value Ref Range PRO-B TYPE NATRIURETIC PEPTIDE 8,481 (H) <125 PG/ML No results for input(s): TROP , TROPIWB in the last 72 hours. Recent Labs 08/31/24 1035 TP 7.5 ALB 3.0* ALT 22 IMAGING: Reviewed ECG/TELEMETRY Reviewed Signed BRIT GONZÁLES MD 09/01/2024 ROOM SUPERVISOR * Lakhwinder Angeles CYTOLOGY TEACHER - 08/31/2024 3:39 PM CST CYTOLOGY TEACHER Initial Stroke Evaluation Diet Recommendation: NPO - will update pending results of video swallow study Recommendations: Non oral means for medications and nutrition per medical care team Completion of a video swallow study Strict aspiration precautions and oral care Continue skilled ST for dysphagia management Summary Statement: This patient presents with clinical signs of oropharyngeal dysphagia characterized by prolonged bolus transit and a clinically delayed pharyngeal swallow trigger. Patient with episodes of overt coughing concerning for aspiration with puree solids and ice chips this date; however,patient also coughing in the absence of intake as well which family at bedside reports is commensurate with is baseline given COPD. This patient would benefit from completion of a video swallow studyto formally evaluate his swallow safety before initiation of an oral diet given his current pulmonary/ respiratory status and concerns for aspiration at [facility] and during dysphagia evaluation. Objective: This patient was seen at bedside for initial swallowing evaluation and cognitive-linguistic evaluation per stroke order set. Patient accepted trials of ice chips and pureed solid consistencies. Oral mechanism--Tongue protruded to midline and retracted and lateralized with adequate strength and range. Lips protruded and retracted with adequate strength and range. Adequate range of motion of jaw. Velum elevated symmetrically. There was no overt facial droop. Sub optimal condition of dentition. Patient's voice was hoarse and strained. Cough effort was adequate clinically. Oral phase--Adequate lip seal around spoon and straw. Extended yet complete anterior-posterior transit of bolus within oral cavity. No anterior leakage or spillage and no oral holding or pocketing observed. Pharyngeal phase--Clinically delayed trigger of the pharyngeal swallow. Clinically fair hyolaryngeal elevation upon palpation. Patient with episodes of overt coughing concerning for aspiration with puree solids and ice chips this date; however, patient also coughing in the absence of intake as well. 08/31/24 1500 Therapy Visit CYTOLOGY TEACHER Received on 08/31/24 CYTOLOGY TEACHER Evaluation Completed on 08/31/24 Subjective Patient seen alert and upright in bed. Daughter at bedside. Patient intermittently confused yet pleasant. Reason for Admission Per EMR, Obie Sims is an 69-year-old male with a past medical history of CKD stage III, atrial fibrillation on warfarin, heart failure with reduced ejection fraction, coronary artery disease, aortic stenosis status post bioprosthetic aortic valve replacement, pulmonary hypertension, COPD/asthma, obstructive sleep apnea, hyperlipidemia, diabetes mellitus type 2, CVA, carotid disease, anxiety/depression, hypertension, PAD, and RLS. He was transferred to [facility] with BRITTANY and hyperkalemia. ST consulted due to concerns for aspiration at [facility]. Prior Level of Function General diet and Thin Liquids Living situation Home Mental status Alert;Responsive;Cooperative Verified Two Patient Identifiers Yes Patient consents to Therapy Yes Inpatient CYTOLOGY TEACHER Time Calculation CYTOLOGY TEACHER Start Time 1126 CYTOLOGY TEACHER Stop Time 1150 CYTOLOGY TEACHER Time Calculation (min) 24 min Precautions Precautions Aspiration;Supplemental oxygen Instructed on Precautions Yes;Needs reinforcement and education Pain Pain Patient does not offer or c/o pain CYTOLOGY TEACHER Recommendations Ongoing Recommendations CYTOLOGY TEACHER during hospitalization Previous Diet NPO Recommended Solid Diet NPO Transitional Food Permitted No Recommended Liquid Consistency NPO Understanding of information was judged to be inadequate by patient and adequate by daughter Results/Recommendations discussed with RNMD, patient and daughter Plan CYTOLOGY TEACHER Treatments/Interventions Swallowing treatment;Video swallow study CYTOLOGY TEACHER Frequency 4 times/week;5 times/week CYTOLOGY TEACHER Next Appointment 08/31/24 If this is the last treatment note, it will serve as the discharge summary Yes End of Session End of Session Safety Nursing aware of session;Family/friend present with patient;Call light withinreach;Bed alarm set/activated ROOM SUPERVISOR ROOM SUPERVISOR documented in this encounter H&P Notes * Zaria Thacker, [facility] - 08/31/2024 12:08 PM CST Images from the original note were not included. [employer] Hospitalist H&P Note Attending Provider: Jean Lindsay MD PCP: MEGAN INFANTE MD Reason for Admission: CHF exacerbation ([facility]) Assessment/Plan: Obie Sims is an 69-year-old male with a past medical history of CKD stage III, atrial fibrillation on warfarin, heart failure with reduced ejection fraction, coronary artery disease, aortic stenosis status post bioprosthetic aortic valve replacement, pulmonary hypertension, COPD/asthma, obstructive sleep apnea, hyperlipidemia, diabetes mellitus type 2, CVA, carotid disease, anxiety/depression, hypertension, PAD, and RLS. He was transferred to [facility] with BRITTANY and hyperkalemia. Acute on chronic heart failure with reduced ejection fraction Anasarca BRITTANY on CKD stage III Hyperkalemia, resolved Pulmonary hypertension Valvular heart disease Acute respiratory failure with hypoxia -Suspect cardiorenal syndrome. Patient received both diuretics and IV fluids at the outside facility. -Echocardiogram from February 2024 reveals an ejection fraction of 40 to 45% with bioprosthetic aortic valve, no central or periprosthetic aortic regurgitation, mild mitral regurgitation, and mild tricuspid regurgitation. -Creatinine 2.02-> 2.79-> 2.84. -BNP more than 8000. Chest x-ray shows cardiomegaly and interstitial edema. Volume overloaded on exam. -IV Lasix 80 mg daily. No potassium supplementation. -Strict intake and output with daily weights. -Continue Oneill. -Hold Entresto in light of BRITTANY. Continue beta-kim and Jardiance. -[facility] nephrology consulted for assistance with diuresis and BRITTANY. -Oxygen to maintain saturations greater than 89%. Ground-level fall Rib fractures Generalized weakness -CT of the chest shows acute fractures of the seventh and eighth right ribs. -Up with assist, fall precautions. -PT/OT consult. -Pain control. -Incentive spirometer. Concern for aspiration -NPO. -CYTOLOGY TEACHER consultation. CYTOLOGY TEACHER recommend swallow study and continued n.p.o. status. Hematuria -UA negative. -Likely due to traumatic Oneill insertion and/or trauma to Oneill in setting of supratherapeutic INR.Initial UA with no RBCs. -Bleeding seems to be clearing, continue to monitor. -Hold warfarin. Atrial fibrillation Supratherapeutic INR, resolved -INR was 5.4 on presentation. Currently 1.8. -Hold warfarin in setting of hematuria. Daily INRs. -Continue beta-kim for rate control. -Monitor telemetry. Diabetes mellitus type 2 -Continue Jardiance. -Hold glipizide. -Accu-Chek with low-dose sliding scale insulin every 6 hours while NPO. -Check glycosylated hemoglobin. Coronary artery disease Hypertension Hyperlipidemia -Heart catheterization from 2020 revealed a 60% proximal LAD stenosis, 50% ostial RCA stenosis, bioprosthetic aortic valve without aortic regurgitation, and severe pulmonary hypertension. -Historically not on aspirin. Continue beta-kim and statin. -Monitor telemetry. COPD/asthma overlap syndrome -Not in acute exacerbation. -Resume inhalers. CVA Carotid disease PAD -Continue aspirin and statin. Body mass index is 39.07 kg/m??. DVT prophylaxis: Mechanical only Code status: DNR I spent a total of 40 minutes [id number] with the patient, reviewing the patient's chart, clinical decision making, and documentation of patient's care. KERVIN CHRISTIANSON- 08/31/2024 HPI: Obie Sims is an 69-year-old male with a past medical history of CKD stage III, atrial fibrillation on warfarin, heart failure with reduced ejection fraction, coronary artery disease, aortic stenosis status post bioprosthetic aortic valve replacement, pulmonary hypertension, COPD/asthma, obstructive sleep apnea, hyperlipidemia, diabetes mellitus type 2, CVA, carotid disease, anxiety/depression, hypertension, PAD, and RLS. He was transferred to [facility] with BRITTANY and hyperkalemia. Patient here with daughter who provides some of the history. Patient tripped and had a ground-levelfall in 08/18. Initially he declined treatment. He ultimately presented to an outside ED a couple of days ago with right rib pain and right knee pain. He denies any fever, chills, or sweats. He admits to weakness and fatigue. He has shortness of breath, dyspnea on exertion, and orthopnea. He reports lower extremity swelling. His abdomen feels tight and distended and his hands feel swollen as well. He denies any chest discomfort but has intermittent palpitations. He denies any abdominal pain, nausea, vomiting, diarrhea, black or bloody stools. No dysuria or urinary frequency. His weight is up 16 pounds from baseline. Initial creatinine at outside facility was 2.02. Patient has received diuretics as well as fluid boluses after he became hypotensive. He was treated for hyperkalemia with a potassium of 5.9. He received an amp of bicarb, D5, and 10 units of IV insulin last night. Repeat potassium here is 5. Creatinine 2.84, proBNP 8481, WBC 11.4, INR 1.8. Initial INR at the outside facility was 5.4. UA was clean.He was negative for RSV, influenza, and COVID. Troponin was within normal limits x 2. CT of the head showed encephalomalacia of the left temporal lobe and left insula with an old infarct in the rightcerebellum. CT of the C- spine was negative. CT of the chest, abdomen, and pelvis reviewed acute fracture of the right seventh and eighth ribs. Chest x-ray performed today showed cardiomegaly and interstitial edema. Review of System: Review of Systems Constitutional: Positive for malaise/fatigue. Negative for chills, fever and weight loss. HENT: Negative for congestion, hearing loss and sore throat. Eyes: Negative for blurred vision and double vision. Respiratory: Positive for shortness of breath. Negative for cough and hemoptysis. Cardiovascular: Positive for chest pain (right rib pain), palpitations, orthopnea and leg swelling.Negative for claudication and PND. Gastrointestinal: Negative for abdominal pain, blood in stool, constipation, diarrhea, melena, nausea and vomiting. Genitourinary: Negative for dysuria, flank pain, frequency, hematuria and urgency. Musculoskeletal: Positive for joint pain. Negative for falls and myalgias. Skin: Negative for rash. Neurological: Positive for weakness. Negative for dizziness, tingling and headaches. Endo/Heme/Allergies: Does not bruise/bleed easily. Physical exam: Blood pressure (!) 148/105, pulse 85, temperature 97.5 ??F (36.4 ??C), temperature source Oral, resp. rate 22, height 1.676 m (5' 6 ), weight 109.8 kg (242 lb 1 oz), SpO2 96%. Physical Exam Constitutional: General: He is not in acute distress. Appearance: He is well-developed. He is obese. He is ill-appearing. He is not diaphoretic. HENT: Head: Normocephalic and atraumatic. Eyes: Conjunctiva/sclera: Conjunctivae normal. Pupils: Pupils are equal, round, and reactive to light. Neck: Vascular: No JVD. Cardiovascular: Rate and Rhythm: Normal rate. Rhythm irregularly irregular. Heart sounds: Normal heart sounds. Pulmonary: Effort: Pulmonary effort is normal. Breath sounds: No stridor. Examination of the right-lower field reveals decreased breath sounds. Examination of the left-lower field reveals decreased breath sounds. Decreased breath sounds present. Abdominal: General: Bowel sounds are normal. There is distension. Palpations: Abdomen is soft. There is no mass. Tenderness: There is no abdominal tenderness. There is no guarding or rebound. Musculoskeletal: General: Normal range of motion. Cervical back: Normal range of motion and neck supple. Right lower le+ Pitting Edema (to level of thigh) present. Left lower le+ Pitting Edema (to level of thigh) present. Skin: General: Skin is warm and dry. Coloration: Skin is pale. Findings: Bruising (extensive scattered bruising, especially right flank, RLQ, Right knee) present. Neurological: General: No focal deficit present. Mental Status: He is alert and oriented to person, place, and time. Cranial Nerves: No cranial nerve deficit. Psychiatric: Behavior: Behavior normal. Past Medical History: Diagnosis Date Abnormal ankle brachial index (STELLA) Acute on chronic heart failure, unspecified heart failure type ([facility]) Anxiety Aortic valve stenosis Arthritis Asthma, mild persistent ([facility]) 04/06/2021 Atrial fibrillation ([facility]) s/p PVI/[facility] 10/2015 Bilateral leg pain Carotid disease, bilateral ([facility]) CHF (congestive heart failure) ([facility]) Claudication ([facility]) COPD (chronic obstructive pulmonary disease) ([facility]) Coronary artery disease Diabetes mellitus, type II ([facility]) Edema 04/19/2018 2+ pitting History of blood transfusion Hyperlipidemia Hypertension LV dysfunction Non-pressure chronic ulcer of left calf limited to breakdown of skin ([facility]) 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 breakdown of skin ([facility]) Osteoarthritis PAD (peripheral artery disease) ([facility]) Pneumonia Restless leg syndrome S/P aortic valve replacement with bioprosthetic valve 2013 1999, 2013 SOB (shortness of breath) Stroke ([facility]) Varicose veins of bilateral lower extremities with other complications Weight gain with edema Social History Tobacco Use Smoking status: Former Passive exposure: Past Smokeless tobacco: Former Types: Chew Substance Use Topics Alcohol use: Yes Comment: 4 beers per week Past Surgical History: Procedure Laterality Date APPENDECTOMY CARDIAC VALVE REPLACEMENT 1999 CARDIAC VALVE REPLACEMENT 2013 CARDIOVERSION EXTERNAL 10/01/2015 CARDIOVERSION EXTERNAL 04/14/2012 COLONOSCOPY N/A 03/18/2021 COLONOSCOPY (Incomplete) performed by Kilo Navarro MD at [facility] OR COLONOSCOPY N/A 01/27/2022 COLONOSCOPY WITH COLD SNARE POLYPECTOMY performed by Kilo Navarro MD at [facility] OR HIP ARTHROPLASTY Left KNEE ARTHROPLASTY Bilateral REPAIR ROTATOR CUFF W/ OR W/O ACROMIOPLASTY Left USE NEMO+CARDIOVERSION 03/24/2016 XA A-FIB ABLATION 10/23/2015 PVI/[facility] Family History Problem Relation Name Age of Onset TB Mother Home Medications: No current facility-administered medications on file prior to encounter. Current Outpatient Medications on File Prior to Encounter Medication Sig albuterol sulfate HFA 108 (90 Base) MCG/ACT inhaler Inhale 2 puffs into the lungs every 4 (four) hours as needed. allopurinol 300 MG tablet Take 1 tablet (300 mg total) by mouth daily. atorvastatin 80 MG tablet Take 1 tablet (80 mg total) by mouth nightly at bedtime. carvedilol (COREG) 3.125 MG tablet Take 1 tablet (3.125 mg total) by mouth 2 (two) times daily. clotrimazole-betamethasone (LOTRISONE) cream 1 Application every 12 (twelve) hours. docusate sodium 100 MG capsule Take 1 capsule (100 mg total) by mouth as needed for Constipation. folic acid (FOLVITE) 1 MG tablet Take 1 tablet (1 mg total) by mouth daily. furosemide (LASIX) 80 MG tablet Take 1 tablet (80 mg total) by mouth daily. glipiZIDE XL (GLUCOTROL XL) 5 MG 24 [...] tablet (25 mg total) by mouth daily. nystatin (MYCOSTATIN) powder Apply topically 2 (two) times daily. Apply to groin, under abdominal fold pantoprazole EC 40 MG tablet Take 1 tablet (40 mg total) by mouth daily. pregabalin (LYRICA) 150 MG capsule Take 1 capsule (150 mg total) by mouth 2 (two) times daily. sacubitril-valsartan (ENTRESTO) 24-26 MG tablet Take 1 tablet by mouth 2 (two) times daily. Semaglutide (OZEMPIC, 1 MG/DOSE, SC) Inject into the skin once a week. sertraline 50 MG tablet Take 1 tablet (50 mg total) by mouth daily. traZODone (DESYREL) 150 MG tablet Take 2 tablets (300 mg total) by mouth nightly at bedtime. TRELEGY ELLIPTA 100-62.5-25 MCG/ACT AEROSOL POWDER, BREATH ACTIVATED Inhale 1 puff into the lungs daily. warfarin (COUMADIN) 4 MG tablet Take 1 tablet (4 mg total) by mouth daily. Monitor INR every 3-4 days and follow up closely with PCP (Patient taking differently: Take 0.5 tablets (2 mg total) by mouth daily. Monitor INR every 3-4 days and follow up closely with PCP) Allergies: No Known Allergies Laboratory data and imaging: Results for orders placed or performed during the hospital encounter of 08/31/24 CBC W/DIFF AUTOMATED Result Value Ref Range WBC 11.40 (H) 4.00 - 10.80 x10'3/uL RBC 3.74 (L) 4.50 - 6.10 x10'6/uL HGB 10.9 (L) 12.0 - 16.0 G/DL HCT 34.9 (L) 37.0 - 52.0 % MCV 93.3 78.0 - 100.0 FL MCH 29.1 27.0 - 31.0 PG MCHC 31.2 (L) 33.0 - 36.0 G/DL RDW 16.1 (H) 11.5 - 14.5 % PLT PENDING x10'3/uL MPV PENDING FL DIFFERENTIAL TYPE PENDING COMPREHENSIVE METABOLIC PANEL Result Value Ref Range SODIUM S/P/B 135 (L) 136 - 145 MMOL/L POTASSIUM S/P/B 5.0 3.5 - 5.1 MMOL/L CHLORIDE S/P/B 106 97 - 115 MMOL/L CO2 23.8 21.0 - 32.0 MMOL/L GLUCOSE 103 74 - 106 MG/DL BUN 77 (H) 7 - 18 MG/DL CREATININE S/P/B 2.84 (H) 0.70 - 1.30 MG/DL CALCIUM S/P/B 8.9 8.5 - 10.1 MG/DL BILIRUBIN TOTAL S/P/B 1.5 (H) 0.2 - 1.0 MG/DL ALKALINE PHOSPHATASE S/P/B 125 (H) 45 - 115 U/L AST 19 15 - 37 U/L ALT 22 16 - 61 U/L TOTAL PROTEIN S/P/B 7.5 6.4 - 8.2 G/DL ALBUMIN S/P/B 3.0 (L) 3.4 - 5.0 G/DL ANION GAP 5.2 2.0 - 10.0 MMOL/L OSMOLALITY (CALC) 303 MOSM/KG GFR ESTIMATE 23 (L) >90 ML/MIN/1.73 M2 GFR NOTES GFR REFERENCES: PRO-BRAIN NATRIURETIC PEPTIDE (PRO BNP) Result Value Ref Range PRO-B TYPE NATRIURETIC PEPTIDE 8,481 (H) <125 PG/ML PROTIME/INR, VENOUS (PROTHROMBIN TIME) Result Value Ref Range PROTIME 20.9 (H) 9.4 - 12.5 SEC INR 1.8 (H) 0.8 - 1.1 POCT glucose Result Value Ref Range GLUCOSE POC 103 70 - 109 No results for input(s): TROP , TROPIWB in the last 168 hours. No results found for this visit on 08/31/24. XR CHEST PORTABLE (Results Pending) Cosigned by Jean Lindsay MD at 08/31/2024 2:51 PM WAX ROOM SUPERVISOR ROOM SUPERVISOR ROOM SUPERVISOR Associated attestation - Jean Lindsay MD - 08/31/2024 2:51 PM WAX ROOM SUPERVISOR Images from the original note were not included. I, JEAN LINDSAY MD, seen and examined the patient and discussed the management with the Mid-Level Provider. I reviewed the MLP's note and agree with the findings and plan of care, except as I have documented. Plan of care developed under my direct supervision. Obie Sims is an 69-year-old male with a past medical history of CKD stage III, atrial fibrillation on warfarin, heart failure with reduced ejection fraction, coronary artery disease, aortic stenosis status post bioprosthetic aortic valve replacement, pulmonary hypertension, COPD/asthma, obstructive sleep apnea, hyperlipidemia, diabetes mellitus type 2, CVA, carotid disease, anxiety/depression, hypertension, PAD, and RLS. He was transferred to [facility] with BRITTANY and hyperkalemia. Acute on chronic heart failure with reduced ejection fraction Anasarca BRITTANY on CKD stage III Hyperkalemia, resolved Pulmonary hypertension Valvular heart disease Acute respiratory failure with hypoxia -Suspect cardiorenal syndrome. Patient received both diuretics and IV fluids at the outside facility. -Echocardiogram from February 2024 reveals an ejection fraction of 40 to 45% with bioprosthetic aortic valve, no central or periprosthetic aortic regurgitation, mild mitral regurgitation, and mild tricuspid regurgitation. -Creatinine 2.02-> 2.79-> 2.84. -BNP more than 8000. Chest x-ray shows cardiomegaly and interstitial edema. Volume overloaded on exam. -IV Lasix 80 mg daily. Patient might benefit from Lasix drip await cardiology to evaluate no potassium supplementation. -Strict intake and output with daily weights. -Continue Oneill. -Hold Entresto in light of BRITTANY. Continue beta-kim and Jardiance. -[facility] nephrology consulted for assistance with diuresis and BRITTANY. -Oxygen to maintain saturations greater than 89%. Ground-level fall Rib fractures Generalized weakness -CT of the chest shows acute fractures of the seventh and eighth right ribs. -Up with assist, fall precautions. -PT/OT consult. -Pain control. -Incentive spirometer. Concern for aspiration -NPO. -CYTOLOGY TEACHER consultation. CYTOLOGY TEACHER recommend swallow study and continued n.p.o. status. Hematuria -UA negative. -Likely due to traumatic Oneill insertion and/or trauma to Oneill in setting of supratherapeutic INR.Initial UA with no RBCs. -Bleeding seems to be clearing, continue to monitor. -Hold warfarin. Atrial fibrillation Supratherapeutic INR, resolved -INR was 5.4 on presentation. Currently 1.8. -Hold warfarin in setting of hematuria. Daily INRs. -Continue beta-kim for rate control. -Monitor telemetry. If improving will resume Coumadin monitor closely Diabetes mellitus type 2 -Continue Jardiance. -Hold glipizide. -Accu-Chek with low-dose sliding scale insulin every 6 hours while NPO. -Check glycosylated hemoglobin. Coronary artery disease Hypertension Hyperlipidemia -Heart catheterization from 2020 revealed a 60% proximal LAD stenosis, 50% ostial RCA stenosis, bioprosthetic aortic valve without aortic regurgitation, and severe pulmonary hypertension. -Historically not on aspirin. Continue beta-kim and statin. -Monitor telemetry. COPD/asthma overlap syndrome -Not in acute exacerbation. -Resume inhalers. CVA Carotid disease PAD -Continue aspirin and statin. Body mass index is 39.07 kg/m??. DVT prophylaxis: Mechanical only Code status: DNR Discussed with family at bedside Total time spent 40 minutes more than 50% of time spent in coordination of care Critical Illness: he has ongoing life threatening acute hypoxic resp failyre that represent a constant threat to life. He will require continuous monitoring and adjustment of treatment to avoid further worsening or . I have spent more 36 minutes direct medical care of this critically ill patient in which there is acute impairment of one or more vital organ systems, such that there is probability of imminent or life threatening deterioration of the patients condition. It involved high complexity decision making to treat single or multiple vital organ system failure and /or to prevent further life threatening deterioration of pts condition. The time listed is exclusive of any procedures which may have been performed. Critical care time includes time spent at bedside performing history and physical exam, time spent researching patient prior to interaction with patient, time spent discussing findings and treatment plan with patient and/or family, time spent discussing patient with consultants and colleagues, time spent reviewing pertinent laboratory and radiographic evaluations, time spent re- evaluating patient, or time spent discussing patient with nursing staff. All of the patient's and their family's questions were answered, and the plan of care going forward was outlined to them. documented in this encounter Procedure Notes * Keyona Miller MD - 09/05/2024 1:49 AM CST Patient's Name: Obie Sims Date of : 1955 [x] Clinical [] Educational A focused ultrasound examination was performed by KEYONA MILLER MD on 09/06/2024 1:50 AM and interpreted by KEYONA MILLER MD. Indication: Shock Acquisition (views obtained): [x] Heart: Parasternal long, parasternal short, apical 4-chamber, subcostal 4- chamber, subcostal IVC Findings: [x] Lungs: Bilateral lungs, anteriorly and laterally Findings: [] Abdomen/FAST exam Findings: [] Kidneys: Right kidney, left kidney, bladder Findings: [] Vascular: Right and left femoral and popliteal veins Findings: [] Others: Images: Saved in the archival system [x] Sonosite [] Butterfly Interpretation: EF 40%,, no pericardial effusion, no pneumothorax Following follow-up studies were obtained: Chest x-ray Signed by: KEYONA MILLER MD, Engine Oiler Date: 09/06/2024 Time: 1:50 AM ROOM SUPERVISOR ROOM SUPERVISOR * Kilo Izquierdo RN - 09/04/2024 11:34 AM CST PICC Placement - PICC safe to use after retracting line [address] De La Rosa's (Radiologist) suggestion per the CXR. Order Details: Order received for PICC placement. Chart reviewed. Indication for insertion: Poor IV Access. Order verified with YUNI Domínguez. Time Out: Time out performed with YUNI Domínguez. Patient???s name, date of , and armband verified. Consent obtained and documented in the chart. Ultrasound Examination: Upper arm vasculature examined at the bedside via ultrasound. No signs or symptoms of thrombosis (e.g., swelling, redness, pain, echogenicities) noted in the extremity where the PICC was inserted. The largest vessel suitable for PICC placement was utilized; the vessel was non-pulsatile and easily compressible. CVR 44 %. The patient was encouraged to move the arm with the PICC to promote circulation and prevent thrombus formation. Aseptic Technique: Aseptic technique was strictly followed: hand hygiene performed, sterile gown, sterile gloves, mask, goggles, cap, sterile probe cover, and large sterile drape used. The site was prepped with chlorhexidine scrub and allowed to dry completely prior to the first skin puncture. Local Anesthetic: Lidocaine 1%, 3 mL administered subcutaneously to the insertion site prior to insertion. Cannulation Procedure: Ultrasound utilized with 1 attempt(s) to the right cephalic vein. Cannulation of the vessel was confirmed through direct visualization of the needle tip within the target vessel. The guidewire was advanced through the needle without issues, and the needle was removed intact. The introducer/dilator was placed over the wire, and the guidewire was removed; it was inspected and confirmed to be completely intact. Catheter Placement: The PICC was trimmed to the documented length and advanced into the SVC without issues. Unable to obtain maximum P-wave amplitude without deflection on the 3CG. Exposed catheter: 5 cm omar. Catheter Verification: Tip verified in the superior vena cava per protocol via Chest Xray. Line confirmed to be safe and ok for use. Dressing and Stabilization: A skin barrier was applied, and the PICC line was secured with a StatLock stabilization device. A transparent dressing with CHG was applied. Blood return was obtained, and each lumen was flushed without resistance; Curos caps were applied to the needleless connectors. Complications: Detail of complication: None. Post-Procedure Instructions: If the insertion site begins to bleed or leak, apply a small pressure dressing over the site for 20minutes or until bleeding stops. If necessary, change the dressing and StatLock if blood extends beyond the CHG gel/disc coverage area 24 hours post-insertion. StatSeal or QuikClot may be applied before placing a new dressing. If StatSeal is utilized, hold pressure over the insertion site for 5- 10 minutes before re-dressing to ensure coagulation at the site. Patient Response: Patient response: Patient intubated. Safety Check: Safety check complete; bed in low locked position with side rails up x 3. Call light and [employer]ations[employer] reach. YUNI Domínguez updated. ROOM SUPERVISOR ROOM SUPERVISOR ROOM SUPERVISOR * Juan Francisco Rubi MD - 09/03/2024 9:09 PM CST Peripehral IV Placement under Ultrasound Guidance Diagnosis: Respiratory distress Performed by: Juan Francisco Rubi MD Indication: IV access required. Multiple attempts at peripheral IV placement were made by the nursing staff without success. Procedure: The area was prepped in usual fashion. The R antecubital vein was identified to be patent and cannulated with a 18G angiocath with use of dynamic ultrasound in real time. The patient tolerated the procedure well. Complications: none ROOM SUPERVISOR ROOM SUPERVISOR * Juan Francisco Rubi MD - 09/03/2024 9:08 PM CSTAssociated Order(s): INTUBATION Obie Sims is a 69-year-old male patient. SNOMED CT(R) 1. Varicose veins of bilateral lower extremities with other complications VARICOSE VEINS OF LOWER EXTREMITY 2. Chronic venous insufficiency PERIPHERAL VENOUS INSUFFICIENCY 3. Chronic atrial fibrillation (CMS/HCC HHS/HCC) CHRONIC ATRIAL FIBRILLATION 4. BRITTANY (acute kidney injury) ([facility]) ACUTE KIDNEY INJURY 5. Acute on chronic systolic congestive heart failure ([facility]) ACUTE ON CHRONIC SYSTOLIC HEART FAILURE 6. Longstanding persistent atrial fibrillation ([facility]) LONGSTANDING PERSISTENT ATRIAL FIBRILLATION 7. Pneumonia due to infectious organism, unspecified laterality, unspecified part of lung PNEUMONIA Past Medical History: Diagnosis Date Abnormal ankle brachial index (STELLA) Acute on chronic heart failure, unspecified heart failure type ([facility]) Anxiety Aortic valve stenosis Arthritis Asthma, mild persistent ([facility]) 04/06/2021 Atrial fibrillation ([facility]) s/p PVI/[facility] 10/2015 Bilateral leg pain Carotid disease, bilateral ([facility]) CHF (congestive heart failure) ([facility]) Claudication ([facility]) COPD (chronic obstructive pulmonary disease) ([facility]) Coronary artery disease Diabetes mellitus, type II ([facility]) Edema 04/19/2018 2+ pitting History of blood transfusion Hyperlipidemia Hypertension LV dysfunction Non-pressure chronic ulcer of left calf limited to breakdown of skin ([facility]) 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 breakdown of skin ([facility]) Osteoarthritis PAD (peripheral artery disease) ([facility]) Pneumonia Restless leg syndrome S/P aortic valve replacement with bioprosthetic valve 2013 SOB (shortness of breath) Stroke ([facility]) Varicose veins of bilateral lower extremities with other complications Weight gain with edema Blood pressure (!) 149/98, pulse (!) 122, temperature 98.1 ??F (36.7 ??C), temperature source Oral,resp. rate 26, height 1.676 m (5' 6 ), weight 95.3 kg (210 lb 1.6 oz), SpO2 96%. INTUBATION Date/Time: 09/03/2024 9:08 PM Performed by: Juan Francisco Rubi MD Authorized by: Juan Francisco Rubi MD Consent: The procedure was performed in an emergent [...] to verify the correct patient, procedure, equipment, technical support internship and site/side marked as required. Indications: hypoxemia [...] the procedure well with no immediate complications JUAN FRANCISCO RUBI MD 09/03/2024 ROOM SUPERVISOR documented in this encounter Consult Notes * Isma Barrios MD - 09/15/2024 3:19 PM CSTSummary: Endocrinology [place] Endocrinology Consultation Note REASON FOR CONSULTATION: Type 2 DM A1c 7.0% HISTORY OF PRESENT ILLNESS: Mr. Obie Sims is a 69 year old male who was admitted 09/07/24 with CHF exacerbation. Patient has ahistory of type 2 DM. At home patient was taking glipizide 5 mg BID, Jardiance 25 mg daily, and Ozempic 1 mg weekly. Patient has not required insulin in the outpatient setting. Upon admission patient's A1c was 7.0%. Patient's glycemic profile while inpatient has been very labile with blood glucose levels as high as the 500s and as low as the 50s. Patient has had a good appetite and has been eating full meals. Patient was on prednisone until 09/12/24 when he completed his course. Patient was given 40 mg of prednisone from 09/09-09/13/24. The evening of 09/12/24 at 2125 patient's blood glucose went up to above 500. He was given 12 units of insulin. At 0633 on 09/13/24 patient's blood glucose was 188. Since being off of prednisone patient's blood glucose has been more labile. Glucose on 09/14/24 at 0533 was 202 and patient received 2 units of insulin. He was then 121 at 1109. Blood glucose was stable until 09/15/24 at 0600 when patient's blood glucose was 57. This corrected to 124 at 0822. Patient has require little to no humalog over the last 24 hours. Patient received Lantus 40 units on the night of 09/14/24. This has been decreased to 30 units for the night of 09/15/24. Patient has also been receiving Humalog with meals sliding scale only and Jardiance 25 mg daily. Primary Form Block Maker: None REVIEW OF SYSTEMS: GENERAL: No fever, chills, weight loss/gain HEENT: Denies any double vision, blurred vision, or vision loss. ENDOCRINE: No polyuria and polydipsia. DERMATOLOGIC: No lipohypertrophy at insulin injection sites NEUROLOGIC: No paresthesias, weakness, or tremor GASTROINTESTINAL: No abdominal pain, nausea, vomiting, or diarrhea CARDIOVASCULAR: No palpitations, SOB, edema PULMONARY: Denies shortness of breath or paroxysmal nocturnal dyspnea. GENITOURINARY: Denies burning with urination or any recent urinary tract infections. LYMPHATICS: Denies any enlarged lymph nodes and no history of splenectomy. HEMATOLOGIC: Denies easy bruising or bleeding. MUSCULOSKELETAL: Denies any joint pain or muscle aches. Recent Labs Lab 09/14/24 0533 09/14/24 1109 09/14/24 1723 09/14/24 2048 09/15/24 0617 09/15/24 0822 09/15/24 1045 GLUCOSEPOC 202* 121* 251* 210* 57* 128* 124* PHYSICAL EXAM: GENERAL: No acute distress appears well. VITAL SIGNS: Vitals as documented. HEAD AND EARS: External inspection of the ears and nose without scars, lesions or masses. Oropharynx is pink, moist, and without lesion. EYES: PERRL. EOMI. No scleral icterus or injection. No exophthalmus lid lag. NECK: No thyromegaly, thyroid bruits, or carotid bruits. No cervical or supraclavicular lymphadenopathy. CARDIOVASCULAR: Normal S1 and S2 no murmurs are noted. Regular rate and rhythm. Dorsalis pedis pulses are palpable bilaterally. No lower extremity edema. PULMONARY: Lungs are clear to auscultation bilaterally with unlabored respiratory effort. ABDOMEN: Soft nontender, no organomegaly. EXTREMITIES: No clubbing or cyanosis. SKIN: No rashes or lesions no skin lesions of the feet. NEUROLOGIC: No focal neurological deficits gait without abnormalities. PSYCHIATRIC: Alert and oriented x3 with appropriate mood and affect. ASSESSMENT: Type 2 DM A1c 7.0% Finished prednisone 40 mg daily on 09/13/24 Labile glycemic profile. PLAN: Continue with Lantus 30 units nightly Change Humalog to sliding scale only with meals (70 - 149, administer 0 units) (150 - 199, administer 1 units) (200 - 249, administer 2 units) (250 - 299, administer 3 units) (Greater than 300 notify [place] endocrinology software configuration analyst) Some of patient's labile glycemic profile could be due to discontinuation of prednisone A1c was reasonably controlled on oral diabetic medication in the outpatient setting. Continue with Jardiance 25 mg daily Please notify [facility] Endocrinology for blood glucose value less than 80 or greater [id number]. Addendum: The patient's endocrine case and plan of care were reviewed in detail with the CAREY, Chantal Gomez DNP, at the time of consultation. I agree with the findings and plans as documented. We will continue to follow. Thank you. [facility] Endocrinology Chantal DELGADO DNP, CABLE WEAVER Attending: Dr. Isma Barrios Contact via Halo September 15, 2024 ROOM SUPERVISOR ROOM SUPERVISOR ROOM SUPERVISOR * LALIT Pozo - 09/13/2024 3:12 PM CSTAssociated Order(s): IP CONSULT TO PULMONARY REHAB [facility] PULMONOLOGY CONSULT NOTE Reason for admission: CHF exacerbation ([facility]) [I50.9] Reason for consult: Acute hypoxic and hypercarbic respiratory failure HPI Obie Sims is a 69-year-old male, with history of COPD (FEV1 50%), SHEELA not on CPAP, A-fib on Warfarin, HFrEF, CAD, aortic stenosis s/p bioprosthetic aortic valve replacement, PAD, DM2, CKD stage III, CVA, HTN, HLD, anxiety/depression, and RLS. No significant smoking history. Says he quit more than 40 years ago and was not a regular smoker. Admitted 08/31 after transfer from [facility] for CHF exacerbation, BRITTANY, and hyperkalemia. He initially presented to outside hospital after a fall, found to have rib fractures. Required emergent intubation for hypoxic 09/04 and transferred to ICU. Diuresed and treated for possible aspiration pneumonia. Extubated 09/06. Patient requiring BiPAP at night and intermittently throughout the day for hypercapnia. Will need arrangement for home NIV machine. Patient follows with television station manager Dr. Saleh for his COPD. Per last visit note, he was on Trelegy and PRN Albuterol. Patient reports he is not compliant with his maintenance inhaler and rarely uses his Albuterol. Has oxygen at home to wear when needed but does not use it regularly. Not very active at baseline. Uses a walker to ambulate. 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 Denies exposure to toxic chemicals or fumes. ASSESSMENT AND PLAN [facility] Pulmonology consulted for acute hypoxic and hypercapnic respiratory failure with multifactorialetiology of COPD and untreated SHEELA. Active Problems # Acute hypoxic/hypercapnic respiratory failure # Acute on chronic heart failure with exacerbation # Pneumonia, completed antibiotics # COPD exacerbation # Hx SHEELA, not on CPAP Pertinent Workup CXR 09/09/24: Cardiomegaly with interval increase in pulmonary vascular congestion. Echo 08/31/24: Technically difficult. Mildly enlarged LV. EF 43%. Moderate- severely enlarged RV with severely depressed systolic function. RVSP 36. Moderate aortic valve stenosis. Mild TR. 08/31 Blood culture: no growth 09/01 Urine culture: no growth 09/03 Blood culture: no growth 09/05 Tracheal aspirate culture: no growth VBG 09/13 0458 (wore BiPAP 12/5 cwp all night): pH 7.29/pCO2 68.6 VBG 09/13 1300 (after 3 hours on BiPAP 12/5 cwp): pH 7.32/pCO2 63.4 Previous pulmonary workup: - PFT 03/26/21: FEV1 1.42L(50%), FVC 2.11L(59%), ratio 0.67, TLC 76%, RV 101%, DLCO 41%. - Home sleep study 05/20/21: AHI 10. [facility] Pulmonology Recommendations - Patient will not qualify for home BiPAP as he does not meet the criteria for restrictive thoracicdisorder, severe COPD without evidence of SHEELA, or hypoventilation as a cause of his respiratory failure. He had a home sleep study in 2020 with evidence of mild SHEELA, but did not tolerate CPAP. Likelystill has some degree of underlying SHEELA and will need a repeat sleep study after discharge. - Can continue BiPAP 12/6 cwp while in the hospital and at rehab facility. - Optimize patient's heart failure per cardiology. Consider further diuresis. - Follow up with Dr. Saleh after discharge. Thank you for the consult. We will continue to follow. SUBJECTIVE Chief Complaint: Right rib and knee pain Past Medical History: Diagnosis Date Abnormal ankle brachial index (STELLA) Acute on chronic heart failure, unspecified heart failure type ([facility]) Anxiety Aortic valve stenosis Arthritis Asthma, mild persistent ([facility]) 04/06/2021 Atrial fibrillation ([facility]) s/p PVI/[facility] 10/2015 Bilateral leg pain Carotid disease, bilateral ([facility]) CHF (congestive heart failure) ([facility]) Claudication ([facility]) COPD (chronic obstructive pulmonary disease) ([facility]) Coronary artery disease Diabetes mellitus, type II ([facility]) Edema 04/19/2018 2+ pitting History of blood transfusion Hyperlipidemia Hypertension LV dysfunction Non-pressure chronic ulcer of left calf limited to breakdown of skin ([facility]) 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 breakdown of skin ([facility]) Osteoarthritis PAD (peripheral artery disease) ([facility]) Pneumonia Restless leg syndrome S/P aortic valve replacement with bioprosthetic valve 2013 1999, 2013 SOB (shortness of breath) Stroke ([facility]) Varicose veins of bilateral lower extremities with other complications Weight gain with edema Past Surgical History: Procedure Laterality Date APPENDECTOMY CARDIAC VALVE REPLACEMENT 1999 CARDIAC VALVE REPLACEMENT 2013 CARDIOVERSION EXTERNAL 10/01/2015 CARDIOVERSION EXTERNAL 04/14/2012 COLONOSCOPY N/A 03/18/2021 COLONOSCOPY (Incomplete) performed by Kilo Navarro MD at [facility] OR COLONOSCOPY N/A 01/27/2022 COLONOSCOPY WITH [...] of Onset TB Mother No Known Allergies Review of Systems Constitutional: Negative for chills and fever. Eyes: Negative for blurred vision. Respiratory: Positive for cough, sputum production and shortness of breath. Negative for hemoptysisand wheezing. Minimal shortness of breath with activity. Cardiovascular: Negative for chest pain and palpitations. Gastrointestinal: Negative for abdominal pain, constipation, diarrhea, nausea and vomiting. Genitourinary: Negative for dysuria. Neurological: Negative for dizziness and headaches. OBJECTIVE Physical Exam Constitutional: General: He is not in acute distress. Appearance: He is obese. HENT: Head: Normocephalic and atraumatic. Eyes: Extraocular Movements: Extraocular movements intact. Cardiovascular: Rate and Rhythm: Normal rate. Heart sounds: No murmur heard. Pulmonary: Effort: Pulmonary effort is normal. No respiratory distress. Breath sounds: No wheezing, rhonchi or rales. Comments: On 4L oxygen. Abdominal: Palpations: Abdomen is soft. Tenderness: There is no abdominal tenderness. Musculoskeletal: Comments: Bilateral LE compression socks in place. Skin: General: Skin is warm and dry. Nails: There is no clubbing. Neurological: General: No focal deficit present. Mental Status: He is alert and oriented to person, place, and time. Psychiatric: Mood and Affect: Mood normal. Thought Content: Thought content normal. Recent Vitals: Filed Vitals: 09/13/24 0500 09/13/24 0723 09/13/24 1137 09/13/24 1145 BP: 128/81 127/77 Pulse: 61 72 Resp: 20 Temp: TempSrc: SpO2: 100% 96% 100% Weight: 92.6 kg (204 lb 2.3 oz) Height: Medications: acetylcysteine 10 % 200 mg Nebulization 2 times daily allopurinol 200 mg Oral Daily aspirin 81 mg Oral Daily atorvastatin 80 mg Oral Nightly at bedtime clotrimazole-betamethasone Topical Q12H folic acid 1 mg Oral Daily insulin glargine 40 Units Subcutaneous Nightly at bedtime insulin lispro 0-6 Units Subcutaneous 4x Daily AC and at bedtime ipratropium-albuterol 3 mL Nebulization Q4H metoprolol succinate ER 12.5 mg Oral Daily nystatin 5 mL Oral 4x Daily nystatin Topical BID pregabalin 150 mg Oral BID senna-docusate 1 tablet Oral BID sertraline 50 mg Oral Daily traZODone 300 mg Oral Nightly at bedtime warfarin (COUMADIN) pharmacy to dose Oral See Admin Instructions warfarin 4 mg Oral Once PRN: acetaminophen, albuterol, glucose, dextrose 10 % bolus, [DISCONTINUED] fentaNYL AND [DISCONTINUED] fentaNYL AND fentaNYL, glucagon, HYDROcodone- acetaminophen, HYDROmorphone, hydrOXYzine, naLOXone, ondansetron, polyethylene glycol Labs: Recent Labs 09/11/24 0358 09/12/24 0312 09/13/24 0458 WBC 13.97* 13.55* -- HGB 10.4* 10.8* -- PLT 103* 129* -- GLU 224* 304* -- BUN 36* 39* -- CR 1.52* 1.37* -- NA 140 137 -- K 3.5 4.3 -- CL 104 102 -- CO2 31.7 31.9 -- PHOS 3.1 2.9 3.1 ALT 30 -- -- AST 22 -- -- Micro: Microbiology Results (last 14 days) Procedure Component Value Units Date/Time MRSA PCR nares Screening [[id number]] Collected: 09/07/24 0848 Order Status: Canceled Lab Status: No result Specimen: NASAL CULTURE, RESPIRATORY W/ GRAM STAIN [[id number]] Collected: 09/05/24 0740 Order Status: Completed Lab Status: Final result Updated: 09/10/24 1031 Specimen: TRACHEAL ASPIRATE SPEC DESCRIPTION TRACHEAL ASPIRATE SPECIAL REQUESTS NO SPECIAL REQUEST GRAM STAIN RESULT <10 EPITHELIAL CELLS PER LPF GRAM STAIN RESULT >25 NEUTROPHILS PER LPF GRAM STAIN RESULT NO ORGANISMS SEEN CULTURE RESULT NO GROWTH 5 DAYS Gastric PH [[id number]] Order Status: Canceled Lab Status: No result Specimen: GASTRIC FLUID CULTURE, BACTERIA BLOOD [[id number]] Collected: 09/03/24 1223 Order Status: Completed Lab Status: Final result Updated: 09/08/24 2136 Specimen: BLOOD SPEC DESCRIPTION BLOOD SPECIAL REQUESTS NO SPECIAL REQUEST CULTURE RESULT NO GROWTH 5 DAYS CULTURE, URINE [[id number]] Collected: 09/01/24 1110 Order Status: Completed Lab Status: Final result Updated: 09/03/24 0835 Specimen: URINE, CLEAN CATCH SPEC DESCRIPTION URINE CLEAN CATCH SPECIAL REQUESTS NO SPECIAL REQUEST CULTURE RESULT NO GROWTH (< OR = 1,000 CFU/ML) CULTURE, BACTERIA BLOOD X2 [[id number]] Collected: 08/31/24 1034 Order Status: Completed Lab Status: Final result Updated: 09/06/24 0011 Specimen: BLOOD SPEC DESCRIPTION BLOOD SPECIAL REQUESTS NO SPECIAL REQUEST CULTURE RESULT NO GROWTH 5 DAYS LALIT Pozo [facility] Pulmonology 09/13/2024 Cosigned by Broderick Cheng MD at 09/13/2024 9:20 PM WAX ROOM SUPERVISOR ROOM SUPERVISOR ROOM SUPERVISOR Associated attestation - Broderick Cheng MD - 09/13/2024 9:20 PM WAX ROOM SUPERVISOR Pulmonary Attending: I rounded with the fellow and the DEFENSE ATTORNEY. I interviewed and examined the pt. I reviewed the pt's labs and recent chest imaging. I read the DEFENSE ATTORNEY's note and I agree with the history, PE finding and recommendations. Time: 30 min. * Juan Francisco Rubi MD - 09/03/2024 8:18 PM CST Images from the original note were not included. Critical Care Medicine [facility], [place], [place] Sympalfonso (Doc Halo) 15/03: RENEE Lora Engine Oiler On-call H&P/Consult Note Reason for ICU admission: Acute respiratory failure with hypoxia Principal Problem: CHF exacerbation (CMS/HCC HHS/HCC) HPI: Hospital day: 3 ICU day: 3d 11h History is obtained from chart review and patient's family History is limited due to patient wearing BiPAP and in respiratory distress Obie Sims is a 69-year-old male admitted 08/31/2024 with past medical history of diabetes mellitus, hypertension, hyperlipidemia atrial fibrillation on warfarin, pulmonary hypertension, bioprosthetic aortic valve, COPD, SHEELA. Echocardiogram in February 2024 showed EF of 40 to 45% with bioprosthetic aortic valve Patient was admitted to hospitalist service on 08/31 as a transfer due to BRITTANY and hyperkalemia. He was seen by cardiology and nephrology and was being diuresed. On 09/03, rapid response was called as patient had worsening hypoxia concern for wide-complex arrhythmia start (noticed to be frequent PVCs on telemetry review). Patient was hypoxic in 60s initially requiring increased oxygen via nasal cannula and then placement of BiPAP at FiO2 of 100%. Patient's original status CODE STATUS is DNR however on clarification by hospitalist he was okay with intubation. This was discussed with patient's family and they were in agreement with intubation. He was transferred to [facility] ICU and emergently intubated with rapid sequence induction. Lab workup showed pH of 7.25, pCO2 74, creatinine up from 1.8-2.15, blood sugar 442, proBNP 28,000, troponin 115. Patient was receiving Lasix drip set 5 mg/h and it was increased to 10 mg/h and additional dose of IV Diuril given. On arrival to ICU, postintubation patient was very hypoxic requiring high FiO2 andPEEP with elevated peak and plateau pressure. His hypoxia improved after ventilator adjustments anddecreasing the tidal volume. Assessment and Plan: Acute respiratory failure with hypoxia needing intubation, mechanical ventilation Possible CHF exacerbation versus aspiration event BRITTANY on CKD 3B, suspected cardiorenal Thrombocytopenia, mild, monitor Acute on chronic systolic and right-sided heart failure with reduced ejection fraction Ground-level fall, generalized weakness and rib fractures Pneumonia, HCAP versus aspiration Coagulopathy, supratherapeutic INR, improving Oral thrush Diabetes mellitus type 2, uncontrolled Hyperlipidemia Hypertension Chronic atrial fibrillation status post ablation, on warfarin Pulmonary hypertension Status post aortic valve replacement with bioprosthetic valve COPD Obstructive sleep apnea Gout History of CVA Peripheral arterial disease PLAN: Neurology/Sedation: Monitor mental status Fentanyl, propofol RASS: -2 Cardiovascular: Keep MAP >65 mmHg or as needed Entresto on hold in setting of BRITTANY Continue IV Lasix drip with Diuril as needed Cardiology following Continue aspirin, statin Holding Coreg due to low blood pressure Respiratory: Continue Mechanical Ventilation, Low TV, High PEEP Strategy Mucomyst and DuoNebs Blood gas every 4 hours and adjust mechanical ventilation Gastrointestinal: N.p.o., may start tube feedings if levo requirement is less than 10 Dietitian consult placed Renal/: Monitor UOP and Cr Avoid nephrotoxins Nephrology following Fluid and Electrolytes: Monitor and replace Infectious Disease: F/u cultures, continue antibiotics Continue vancomycin and Zosyn Blood cultures: No growth till date Urine cultures negative Endocrine: BG goal of <180 Uncontrolled, starting Lantus 25 units daily and sliding scale Hematology/Oncology: Transfuse for Hb <7, Platelet <10K Musculoskeletal: Continue pain management PT/OT consultation Code Status: DNR, okay to intubate, discussed with family Discussed clinical course and updated family at bedside, all questions answered Feeding: N.p.o., may start tube feeds if pressor requirement is low Agitation: None Sedation: Fentanyl propofol Thromboprophylaxis: Heparin drip Extubation: Daily SBT Restraints: Yes Foleys: Yes Lines and Tubes: PIV x 3 Activity: As tolerated, as directed by PT/oT Glycemic control: BG goal of <180 GI prophylaxis: IV pepcid Disposition: Continue ICU Status Critical Care time spent in evaluation and management of a critically ill or injured patient is 105minutes, such that the critical illness or injury acutely impairs one or more organ system: (Neurology, cardiovascular, respiratory, renal, ID, endocrine) such that there is a high probability of imminent or life-threatening deterioration in the patient's condition needing immediate attention or presence of critical care physician near bedside for the above time . Complex decisions were made to manipulate and support multiple organ systems. The time listed is exclusive of any procedures which may have been performed. Critical care time includes time spent at bedside performing history and physical exam, time spent researching patient prior to interaction with patient, time spent discussing findings and treatment plan with patient and/or family, time spent discussing patient with consultants and colleagues, time spent reviewing pertinent laboratory and radiographic evaluations, time spent re-evaluating patient, or time spent discussing patient with nursing staff. All of the patient's and his family's questions were answered, and the plan of care going forward was outlined to them. JUAN FRANCISCO RUBI MD 09/03/2024 8:18 PM Past Medical Hx: As below Past surgical Hx: As below Home Medications: As below Family History: As below Personal and social hx: As below Past Medical History: Diagnosis Date Abnormal ankle brachial index (STELLA) Acute on chronic heart failure, unspecified heart failure type ([facility]) Anxiety Aortic valve stenosis Arthritis Asthma, mild persistent ([facility]) 04/06/2021 Atrial fibrillation ([facility]) s/p PVI/[facility] 10/2015 Bilateral leg pain Carotid disease, bilateral ([facility]) CHF (congestive heart failure) ([facility]) Claudication ([facility]) COPD (chronic obstructive pulmonary disease) ([facility]) Coronary artery disease Diabetes mellitus, type II ([facility]) Edema 04/19/2018 2+ pitting History of blood transfusion Hyperlipidemia Hypertension LV dysfunction Non-pressure chronic ulcer of left calf limited to breakdown of skin ([facility]) 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 breakdown of skin ([facility]) Osteoarthritis PAD (peripheral artery disease) ([facility]) Pneumonia Restless leg syndrome S/P aortic valve replacement with bioprosthetic valve 2013 1999, 2013 SOB (shortness of breath) Stroke ([facility]) Varicose veins of bilateral lower extremities with other complications Weight gain with edema Past Surgical History: Procedure Laterality Date APPENDECTOMY CARDIAC VALVE REPLACEMENT 1999 CARDIAC VALVE REPLACEMENT 2013 CARDIOVERSION EXTERNAL 10/01/2015 CARDIOVERSION EXTERNAL 04/14/2012 COLONOSCOPY N/A 03/18/2021 COLONOSCOPY (Incomplete) performed by Kilo Navarro MD at [facility] OR COLONOSCOPY N/A 01/27/2022 COLONOSCOPY WITH COLD SNARE POLYPECTOMY performed by Kilo Navarro MD at [facility] OR HIP ARTHROPLASTY Left KNEE ARTHROPLASTY Bilateral REPAIR ROTATOR CUFF W/ OR W/O ACROMIOPLASTY Left USE NEMO+CARDIOVERSION 03/24/2016 XA A-FIB ABLATION 10/23/2015 PVI/[facility] Family History Problem Relation Name Age of Onset TB Mother No current facility-administered medications on file prior to encounter. Current Outpatient Medications on File Prior to Encounter Medication Sig Dispense Refill albuterol sulfate HFA 108 (90 Base) MCG/ACT inhaler Inhale 2 puffs into the lungs every 4 (four) hours as needed. allopurinol 300 MG tablet Take 1 tablet (300 mg total) by mouth daily. atorvastatin 80 MG tablet Take 1 tablet (80 mg total) by mouth nightly at bedtime. carvedilol (COREG) 3.125 MG tablet Take 1 tablet (3.125 mg total) by mouth 2 (two) times daily. clotrimazole-betamethasone (LOTRISONE) cream 1 Application every 12 (twelve) hours. docusate sodium 100 MG capsule Take 1 capsule (100 mg total) by mouth as needed for Constipation. folic acid (FOLVITE) 1 MG tablet Take 1 tablet (1 mg total) by mouth daily. furosemide (LASIX) 80 MG tablet Take 1 tablet (80 mg total) by mouth daily. 30 tablet 0 glipiZIDE XL (GLUCOTROL XL) 5 MG [...] tablet (25 mg total) by mouth daily. nystatin (MYCOSTATIN) powder Apply topically 2 (two) times daily. Apply to groin, under abdominal fold 15 g 0 pantoprazole EC 40 MG tablet Take 1 tablet (40 mg total) by mouth daily. pregabalin (LYRICA) 150 MG capsule Take 1 capsule (150 mg total) by mouth 2 (two) times daily. sacubitril-valsartan (ENTRESTO) 24-26 MG tablet Take 1 tablet by mouth 2 (two) times daily. 60 tablet 11 Semaglutide (OZEMPIC, 1 MG/DOSE, SC) Inject into the skin once a week. sertraline 50 MG tablet Take 1 tablet (50 mg total) by mouth daily. traZODone (DESYREL) 150 MG tablet Take 2 tablets (300 mg total) by mouth nightly at bedtime. TRELEGY ELLIPTA 100-62.5-25 MCG/ACT AEROSOL POWDER, BREATH ACTIVATED Inhale 1 puff into the lungs daily. warfarin (COUMADIN) 4 MG tablet Take 1 tablet (4 mg total) by mouth daily. Monitor INR every 3-4 days and follow up closely with PCP (Patient taking differently: Take 0.5 tablets (2 mg total) by mouth daily. Monitor INR every 3-4 days and follow up closely with PCP) 30 tablet 0 No Known Allergies Social History Socioeconomic History Marital status: Spouse name: Ema Number of children: 2 Years of education: Not on file Highest education level: Not on file Occupational History Employer: NOT EMPLOYED Tobacco Use Smoking status: Former Passive exposure: Past Smokeless tobacco: Former Types: Chew Vaping Use Vaping status: Never Used Substance and Sexual Activity Alcohol use: Yes Comment: 4 beers per week Drug use: No Sexual [...] Social History Narrative Not on file Social Drivers of Health Financial Resource Strain: Low Risk (08/31/2024) Overall Financial Resource Strain (CARDIA) Difficulty of Paying Living Expenses: Not very hard Food Insecurity: No Food Insecurity (08/31/2024) Hunger Vital Sign Worried About Running Out of Food in the Last Year: Never true Ran Out of Food in the Last Year: Never true Transportation Needs: No Transportation Needs (08/31/2024) PRAPARE - Transportation Lack of Transportation (Medical): No Lack of Transportation (Non-Medical): No Physical Activity: Not on file Stress: Patient Declined (02/16/2023) [employer] [place] [employer] - Occupational Stress Questionnaire Feeling of Stress : Patient declined Social Connections: Patient Declined (02/16/2023) Social Connection and Isolation Panel [NHANES] Frequency of Communication with Friends and Family: Patient declined Frequency of Social Gatherings with Friends and Family: Patient declined Attends Zoroastrianism Services: Patient declined Active Member of Clubs or Organizations: Patient declined Attends Club or Organization Meetings: Patient declined Marital Status: Patient declined Recent Concern: Social Connections - Moderately Isolated (02/06/2023) Social Connection and Isolation Panel [NHANES] Frequency of Communication with Friends and Family: Twice a week Frequency of Social Gatherings with Friends and Family: Twice a week Attends Zoroastrianism Services: More than 4 times per year Active Member of Clubs or Organizations: No Attends Club or Organization Meetings: Never Marital Status: Intimate Partner Violence: Not At Risk (08/31/2024) Humiliation, Afraid, Rape, and Kick questionnaire Fear of Current or Ex-Partner: No Emotionally Abused: No Physically Abused: No Sexually Abused: No Housing Stability: Low Risk (08/31/2024) Housing Stability Vital Sign Unable to Pay for Housing in the Last Year: No Number of Times Moved in the Last Year: 0 Homeless in the Last Year: No Current inpatient medications: Current Facility-Administered Medications: acetaminophen (TYLENOL) tablet 650 mg, 650 mg, Oral, Q4H PRN, STEPHEN ChristiansonP-BC acetylcysteine 10 % (MUCOMYST) inhalation solution 200 mg, 200 mg, Nebulization, 2 times daily, Jean Lindsay MD, 200 mg at 09/03/24 1214 albuterol sulfate HFA 108 (90 Base) MCG/ACT inhaler 2 puff, 2 puff, Inhalation, Q4H PRN, KERVIN Christianson-BC, 2 puff at 09/03/24 1214 allopurinol (ZYLOPRIM) tablet 300 mg, 300 mg, Oral, Daily, KERVIN Christianson-BC, 300 mg at 09/03/24 0828 aspirin chewable tablet 81 mg, 81 mg, Oral, Daily, Shereen Duncan NP, 81 mg at 09/03/24 0828 atorvastatin (LIPITOR) tablet 80 mg, 80 mg, Oral, Nightly at bedtime, KERVIN Christianson-BC, 80mg at 09/02/242137 carvedilol (COREG) tablet 3.125 mg, 3.125 mg, Oral, BID, KERVIN Christianson- MIAN, 3.125 mg at 09/03/24 0828 chlorthalidone (HYGROTEN) tablet 25 mg, 25 mg, Oral, Daily, Leo Ibrahim MD, 25 mg at 09/03/24 1241 clotrimazole-betamethasone (LOTRISONE) cream, , Topical, Q12H, ALONDRA Christianson, Given at 09/03/24 0831 empagliflozin (JARDIANCE) tablet 25 mg, 25 mg, Oral, Daily, ALONDRA Christianson, 25 mg at 09/03/24 0834 folic acid (FOLVITE) tablet 1 mg, 1 mg, Oral, Daily, KERVIN Christianson-MIAN, 1 mg at 09/03/24 0828 furosemide (LASIX) 100 mg in sodium chloride 0.9 % 100 mL (1 mg/mL) infusion, 5 mg/hr, Intravenous,Continuous, Marlin Henriquez NP, Last Rate: 5 mL/hr at 09/03/24 1445, 5 mg/hr at 09/03/24 1445 HYDROcodone-acetaminophen (NORCO) 5-325 MG tablet 1 tablet, 1 tablet, Oral, Q4H PRN, ALONDRA Christianson HYDROmorphone (DILAUDID) injection 0.2 mg, 0.2 mg, Intravenous, Q2H PRN, ALONDRA Christianson hydrOXYzine (ATARAX) tablet 50 mg, 50 mg, Oral, TID PRN, ALONDRA Christianson insulin lispro (HUMALOG/ADMELOG) injection 0-6 Units, 0-6 Units, Subcutaneous, 4x Daily AC and at bedtime, Jean Lindsay MD, 4 Units at 09/03/24 1731 mometasone-formoterol (DULERA) 100-5 MCG/ACT inhaler 2 puff, 2 puff, Inhalation, 2 times daily, ALONDRA Christianson, 2 puff at 09/03/24 1701 naLOXone (NARCAN) injection 0.4 mg, 0.4 mg, Intravenous, PRN, ALONDRA Christianson nystatin (MYCOSTATIN) 703995 UNIT/ML suspension 5 mL, 5 mL, Oral, 4x Daily, Jean Lindsay MD, 5mL at 09/03/24 1245 nystatin (MYCOSTATIN) powder, , Topical, BID, ALONDRA Christianson, Given at 09/03/24 0828 ondansetron (ZOFRAN) injection 4 mg, 4 mg, Intravenous, Q8H PRN, ALONDRA Christianson pantoprazole EC (PROTONIX) tablet 40 mg, 40 mg, Oral, Daily, ALONDRA Christianson, 40 mg at 09/03/24 0828 piperacillin-tazobactam (ZOSYN) 3.375 g in sodium chloride 0.9 % 50 mL IVPB, 3.375 g, Intravenous, Q8H, Jean Lindsay MD polyethylene glycol (GLYCOLAX) packet 17 g, 17 g, Oral, Daily PRN, ALONDRA Christianson pregabalin (LYRICA) capsule 150 mg, 150 mg, Oral, BID, RAVEN Christianson, 150 mg at 09/03/24 0828 sertraline (ZOLOFT) tablet 50 mg, 50 mg, Oral, Daily, ALONDRA Christianson, 50 mg at 09/03/24 0828 tiotropium (SPIRIVA RESPIMAT) 2.5 MCG/ACT inhaler 2 puff, 2 puff, Inhalation, Daily, ALONDRA Christianson, 2 puff at 09/03/24 0759 traZODone (DESYREL) tablet 300 mg, 300 mg, Oral, Nightly at bedtime, ALONDRA Christianson, 300mg at 09/02/24 2138 [START ON 09/04/2024] vancomycin 1000 mg in NS 250 mL IVPB, 1,000 mg, Intravenous, Q24H, Jean Lindsay MD Pharmacy to dose vancomycin, , , Once AND vancomycin pharmacy to dose placeholder, , Intravenous, See Admin Instructions, Jean Lindsay MD Pharmacy to dose warfarin (COUMADIN), , , Once AND warfarin (COUMADIN) pharmacy to dose placeholder, , Oral, See Admin Instructions, Jean Lindsay MD Subjective: 12 point review of systems was completed and negative except findings reported above in ICU timeline and HPI. Objective: Body mass index is 33.91 kg/m??. Current vital signs Blood pressure (!) 156/92, pulse (!) 108, temperature 98.1 ??F (36.7 ??C), temperature source Oral,resp. rate 23, height 1.676 m (5' 6 ), weight 95.3 kg (210 lb 1.6 oz), SpO2 (!) 89%. Vitals: 09/03/242010 BP: (!) 156/92 Pulse: (!) 108 Resp: Temp: SpO2: (!) 89% 24 hour BP and temperature range @[id number]@ Temp (24hrs), Av.2 ??F (36.8 ??C), Min:98.1 ??F (36.7 ??C), Max:98.2 ??F (36.8 ??C) Input/Output 09/02 1500 - 09/03 1459 In: 400 [P.O.:400] Out: 4450 [Urine:4450] Intake/Output Summary (Last 24 hours) at 09/03/20242017 Last data filed at 09/03/2024 1700 Gross per 24 hour Intake 520 ml Output 4550 ml Net -4030 ml Physical exam: Gen: Patient is very lethargic, difficult to arouse intubated later on and sedated Neuro: Moving all extremities, no deficit appreciated Head: Atraumatic and normocephalic Eyes: Pupils equal round and reactive, no jaundice ENT: Moist mucous membrane Neck: JVD + Cardiac: Irregular, S1, S2, no added sounds Pulm: Bilateral air entry, bibasilar crackles Abdomen: Soft and nontender, bowel sounds present Skin: No rash or erythema Extremities: Trace pedal edema Data Review: Recent Labs 09/01/24 0819 09/02/24 0741 09/03/24 0506 WBC 11.52* 13.53* 13.49* HGB 11.6* 12.5 11.9* HCT 36.8* 40.1 39.1 MCV 91.3 92.8 93.8 PLT 100* 130* 111* RBC 4.03* 4.32* 4.17* Recent Labs Lab 09/01/24 0819 09/02/24 0030 09/02/24 0741 09/02/24 2325 09/03/24 0506 NA 141 < > 145 145 145 K 4.9 < > 4.1 4.1 4.1 CL 110 < > 113 112 112 CO2 21.2 < > 25.8 29.6 28.3 AGAP 9.8 < > 6.2 3.4 4.7 BUN 70* < > 68* 56* 56* CR 2.28* < > 2.00* 1.90* 1.81* GLU 121* < > 228* 238* 218* CA 9.7 < > 9.8 9.3 9.8 TP 8.0 -- 8.6* -- 8.3* ALB 3.0* < > 3.1* 2.9* 3.0* TBIL 2.1* -- 2.0* -- 1.7* ALKP 135* -- 139* -- 129* AST 23 -- 18 -- 23 ALT 20 -- 21 -- 21 < > = values in this interval not displayed. Coagulation: Recent Labs 09/01/24 0819 09/02/24 0741 09/03/24 0506 INR 1.6* 1.9* 2.6* Troponins: No results for input(s): TROP , TROPIWB in the last 168 hours. ABG: Lab Results Component Value Date BASEEXCESS 1.1 09/03/2024 VBG: No components found for: PHMIXEDVEN , OK3LTFQRIM , LMG6IPYHWT , DGV6EPEHN , ZX1MFXJ Lactic acid: No components found for: LACTATE EKG: All telemetry strips reviewed, no evidence of sustained ventricular tachycardia Results for orders placed or performed during the hospital encounter of 08/31/24 ECG 12 lead Narrative [address] [address] Test Date: 2024-08-31 Pat Name: OBIE SIMS Department: 1 Room: [facility] Gender: Male Dot Etcher Apprentice: Ti : 1955 Requested By: ZARIA THACKER Order Number: [id number] Reading MD: Domingo Parks Measurements Intervals [place] Rate: 80 P: TN: 0 QRS: -32 QRSD: 147 T: 128 QT: 379 QTc: 439 Interpretive Statements ATRIAL FIBRILLATION LEFT AXIS DEVIATION [QRS AXIS < -30] LEFT BUNDLE BRANCH BLOCK [120+ ms QRS DURATION, 80+ ms Q/S IN V1/V2, 85+ ms R IN I/aVL/V5/V6] ROOM SUPERVISOR ECG 12 lead Narrative [address] [address] Test Date: 2024-09-03 Pat Name: OBIE SIMS Department: 1 Room: [facility] Gender: Male Dot Etcher Apprentice: Hans Santiago : 1955 Requested By: NIKOLAS JIMÉNEZ Order Number: [id number] Reading MD: Measurements Intervals [place] Rate: 101 P: TN: 0 QRS: -46 QRSD: 146 T: 132 QT: 360 QTc: 467 Interpretive Statements ATRIAL FIBRILLATION WITH RAPID VENTRICULAR RESPONSE WITH ABERRANT CONDUCTION OR VENTRICULAR PREMATURE COMPLEXES LEFT AXIS DEVIATION [QRS AXIS < -30] LEFT BUNDLE BRANCH BLOCK [120+ ms QRS DURATION, 80+ ms Q/S IN V1/V2, 85+ ms R IN I/aVL/V5/V6] Microbiology: No results found. However, due to the size of the patient record, not all encounters were searched.Please check Results Review for a complete set of results. Results for orders placed or performed during the hospital encounter of 08/31/24 (from the past week) CULTURE, BACTERIA BLOOD Collection Time: 09/03/24 12:23 PM Specimen: BLOOD Result Value Ref Range SPEC DESCRIPTION BLOOD SPECIAL REQUESTS NO SPECIAL REQUEST CULTURE RESULT NO GROWTH <24 HRS CULTURE, BACTERIA BLOOD X2 Collection Time: 08/31/24 10:34 AM Specimen: BLOOD Result Value Ref Range SPEC DESCRIPTION BLOOD SPECIAL REQUESTS NO SPECIAL REQUEST CULTURE RESULT NO GROWTH 3 DAYS and Results for orders placed or performed during the hospital encounter of 08/31/24 (from the past week) CULTURE, URINE Collection Time: 09/01/24 11:10 AM Specimen: URINE, CLEAN CATCH Result Value Ref Range SPEC DESCRIPTION URINE CLEAN CATCH SPECIAL REQUESTS NO SPECIAL REQUEST CULTURE RESULT NO GROWTH (< OR = 1,000 CFU/ML) Microbiology Results (last 14 days) Procedure Component Value Units Date/Time CULTURE, BACTERIA BLOOD [[id number]] Collected: 09/03/24 1223 Order Status: Completed Lab Status: Preliminary result Updated: 09/03/24 184 Specimen: BLOOD SPEC DESCRIPTION BLOOD SPECIAL REQUESTS NO SPECIAL REQUEST CULTURE RESULT NO GROWTH <24 HRS CULTURE, RESPIRATORY W/ GRAM STAIN [[id number]] Order Status: No result Lab Status: No result Specimen: SPUTUM, EXPECTORATED CULTURE, URINE [[id number]] Collected: 09/01/24 1110 Order Status: Completed Lab Status: Final result Updated: 09/03/24 0835 Specimen: URINE, CLEAN CATCH SPEC DESCRIPTION URINE CLEAN CATCH SPECIAL REQUESTS NO SPECIAL REQUEST CULTURE RESULT NO GROWTH (< OR = 1,000 CFU/ML) CULTURE, BACTERIA BLOOD X2 [[id number]] Collected: 08/31/24 1034 Order Status: Completed Lab Status: Preliminary result Updated: 09/03/241845 Specimen: BLOOD SPEC DESCRIPTION BLOOD SPECIAL REQUESTS NO SPECIAL REQUEST CULTURE RESULT NO GROWTH 3 DAYS Radiology: Imaging: ECG 12 lead Result Date: 09/03/[address] [address] Test Date: 2024-09-03 Pat Name: OBIE SIMS Department: 1 Room: [facility] Gender: Male Dot Etcher Apprentice: Hans Santiago : 1955 Requested By: NIKOLAS JIMÉNEZ Order Number: [id number] Reading MD: Measurements Intervals [place] Rate: 101 P: TN: 0 QRS: -46 QRSD: 146 T: 132 QT: 360 QTc: 467 Interpretive Statements ATRIAL FIBRILLATION WITH RAPID VENTRICULAR RESPONSE WITH ABERRANT CONDUCTION OR VENTRICULAR PREMATURE COMPLEXES LEFT AXIS DEVIATION [QRS AXIS < - 30] LEFT BUNDLE BRANCH BLOCK [120+ ms QRS DURATION, 80+ ms Q/S IN V1/V2, 85+ ms R IN I/aVL/V5/V6] XR CHEST PORTABLE Result Date: 09/03/[address] [address] Procedure(s):XR CHEST PORTABLE Date of service: 09/03/2024 9:32 [...] right shoulder. Postfusion changes lower cervical spine. IMPRESSION: Persistent bilateral alveolar and interstitial opacification concerning for pneumonia or pulmonary edema. Slight improvement as compared to August 31. Referred By: PROVIDER NON-STAFF Interpreted By: Klever Edwards MD, 09/03/2024 9:54 AM XR SPEECH SWALLOW S[facility] ONLY Result Date: 09/01/[address] [address] Date: 09/01/2024 4:54 PM Exam: Video assisted fluoroscopic swallow study. Comparison: None. Technique:Exam was performed in conjunction with speech pathology. Patient was placed in an upright lateral position. Pulse fluoroscopy time of 2.5 minutes. Radiation dose was K AR = 15.7mGy. The patient was evaluated swallowing honey barium consistency via spoon, straw, and open cup, nectar barium consistency via spoon,straw, and open cup, pudding barium consistency via spoon, and thin barium consistency via cup and straw. The patient was evaluated swallowing a cookie coated in barium followed by nectar barium consistency via open cup. The patient was evaluated swallowing a cookie coated in barium followed by honey barium consistency via spoon. Neutral, bolus hold, and chin tuck maneuvers were performed. History: Dysphasia. Findings: Honey barium consistency via spoon demonstrated premature spillage to the kaitlynn lecula before initiation of the swallow. No evidence [...] of laryngeal penetration. No evidence of aspiration. [place] barium consistency via spoon demonstrated premature spillage to the vallecula before initiation of swallow. No evidence of laryngeal penetration. No evidence of aspiration. [place] barium consistency via straw demonstrated premature spillage [...] This is consistent with impending silent aspiration. [place] barium consistency via open cup demonstrated premature spillage to the vallecula and piriform sinuses before initiation of swallow. No evidence of laryngeal penetration. No evidence of aspiration. [place] barium consistency via straw with a bolus hold maneuver demonstrated premature spillage to the vallecula and piriform sinuses before initiation of swallow. Laryngeal penetration without ejection was visualized as seen in series 14 image 14 through 35. A cough reflex wasnot elicited. This is consistent with impending silent [...] with impending silent aspiration. Thin barium consistency viastraw with a chin tuck maneuver demonstrated premature [...] initiation of swallow with a cookie coated inbarium. Premature spillage to the vallecula before initiation of the swallow with honey barium consistency via spoon. No evidence of laryngeal penetration or aspiration with a cookie coated in bariumor honey barium consistency via spoon. Impression: 1. [...] Munoz on 09/01/2024 4:53 PM Ordered By: JEAN LINDSAY Interpreted By: KESHA Munoz, 09/01/2024 4:53 PM ECG 12 lead Result Date: 09/01/2024 [place] [place] [address] Test Date: 2024-08-31 Pat Name: OBIE SIMS Department: 1 Room: [facility] Gender: Male Dot Etcher Apprentice: Ti : 1955 Requested By: ZARIA THACKER Order Number: [id number] Reading MD: Domingo Parks Measurements Intervals [place] Rate: 80 P: TN: 0 QRS: -32 QRSD: 147 T: 128 QT: 379 QTc: 439 Interpretive StatementsATRIAL FIBRILLATION LEFT AXIS DEVIATION [QRS AXIS < -30] LEFT BUNDLE BRANCH BLOCK [120+ ms QRS DURATION, 80+ ms Q/S IN V1/V2, 85+ ms R IN I/aVL/V5/V6] Electronically signed by Domingo Parks 09-01-2024 14:20:01 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 FINDINGS: The right kidney measures 11.6 cm in length, overall suboptimally visualized. The left kidney is not seen. No right-sided hydronephrosis. No definite right-sided focal renal lesion. Echogenicity of the right kidney is within normal limits. The urinary bladder is decompressed with Oneill catheter. IMPRESSION: 1. No right-sided hydronephrosis. 2. Nonvisualized left kidney and suboptimally visualized right kidney. 3. Decompressed urinary bladder with Oneill catheter. Referred By: PROVIDER NON-STAFF Interpreted By: Ever Love MD, 09/01/2024 2:04 AM USE ECHOCARDIOGRAM W CON Result Date: 08/31/2024 Echocardiography Report Pat.Name: OBIE SIMS Dariana.ID: [id number] .Date: 08/31/2024 Refer.: [id number] NON-STAFF PROVIDER EWDPROV EWDPROV Exam Time: 1:13:00 PM Study Type:ECHO W/CONTRAST COMPLETEHeight: 168 cm Weight: 110 kg BSA: 2.17 m2 Age: 12 1955,69Y Sex: M BP: 117/53 HR: 84 bpm Sonogrphr: Jose Cruz Tejada RDCS Pat. Stat.:Inpatient Room: 2 CPT - 4: C8929 Reason for Study:Congestiveheart failure Procedures: 2D, M-mode, Doppler, Color Flow, Definity was used to enhance endocardialdefinition. Race: W ++++++++++++++++++++++++++++++++++++ SUMMARY: ++++++++++++++++++++++++++++++++++ ++ Technically difficult study. The left ventricular size is mildly enlarged. The calculated ejection fraction is 43%. The right ventricular size is moderately to severely enlarged. Right ventricularsystolic function is severely depressed. Right ventricular systolic pressure is 36 mmHg + estimatedRAP. No evidence of pericardial effusion. Moderate aortic valve stenosis. Mild tricuspid regurgitation. ++++++++++++++++++++++++++++++++++++ FINDINGS: ++++++++++++++++++++++++++++++++++++ LV: The left ventricular size is mildly enlarged. The left ventricular systolic function is mild to moderately d epressed. The calculated ejection fraction is 43%. No concentric left ventricular hypertrophy. Leftventricular diastolic function is not reliably assessed. RV: [...] evidence of tricuspid valve stenosis. ++++++++++++++++++++++++++++++++++++ MEASUREMENTS: +++++++++++++++++++++++++++ +++++++++ DOPPLER LVOT LVOTpkPG 4 mmHg LVOTmnPG 2 mmHg LVOTpkVel 96.4 cm/s (70- 110)+ LVOT SV 65 mlLVOT TVI 17.3 cm AV Forward Flow AV [...] Mass 2D Value 223 g LV Mass [id number] Value 103 g/m2 RA Volume Atrial Schaffer 6.38 cm Atrial Schaffer 24.8 cm2 Atrial Schaffer 77.9 ml 2D Left Ventricle LVIDd 5.45 cm (3.6-5.2)* LV EF(Bi-Plane) 43.3 % (63-77)* LVI Ds 4.49 cm (2.3-3.9)* LVPW LVPWd 1.01 cm [...] Signature> 08/31/2024 11:02 PM Brit Gonzáles M.D. XR CHEST PORTABLE Result Date: 08/31/2024 [facility] [address], [place] [address] Examination: XR CHEST PORTABLE Exam time: 08/31/2024 10:12 AM Clinical history: Cough Comparison: 07/31/2024 Technique: AP chest Findings: Shallow inspiration with patient slightly rotated. Post midline sternotomy changes with prosthetic valve. Borderline cardiomegaly similar to previous study. Persistent pulmonaryvascular congestion and interstitial edema very similar to the previous study. No new airspace consolidation. No pleural effusion. IMPRESSION: 1) Borderline cardiomegaly with persistent pulmonary vascular congestion and interstitial edema very similar to previous study. Ordered By: JEAN LINDSAY Interpreted By: Rigoberto Calderon MD, 08/31/2024 3:04 PM JUAN FRANCISCO RUBI MD 09/03/2024 8:18 PM ROOM SUPERVISOR * Brit Gonzáles MD - 08/31/2024 5:54 PM CST Images from the original note were not included. Cardiology Consult Note Patient Name: Obie Sims : 1955 PCP: MEGAN INFANTE MD Primary Oil Recovery Operator: Dr. Brit Gonzáles Reason for Consultation: CHF I, Brit Gonzáles MD, FACC, have independently interviewed patient/family/nursing staff and examined the patient on the date of service. I have spent 60 minutes today on this review and provided a substantive portion of the care of this patient. I personally performed the history, exam, medical decision making including the discussion of the management with Advanced Practice Provider Shereen Duncan NP. I reviewed the note which was documented under my supervision agree with the findings, plan of care and made necessary amendments. Signed BRIT GONZÁLES MD, MS, FACC, [place], [place] 08/31/2024 ASSESSMENT/PLAN: Decompensated acute on chronic systolic heart failure. proBNP 8481. He is volume overloaded both onexam and chest x-ray. Will repeat transthoracic echocardiogram. Creatinine is 2.8. His baseline is 1.7. He has been on Entresto. Will avoid nephrotoxic medications and continue to monitor renal function. Nephrology is on board. Continue IV Lasix as guided by exam and renal function. Continue beta-kim. Will try to add GDMT as able. May need to consider BiDil instead of Entresto. Atrial fibrillation. Rate controlled. On anticoagulation. Coronary artery disease. LHC in 2020 demonstrated 60% proximal LAD stenosis, 50% ostial RCA stenosis bioprosthetic aortic valve without regurgitation, and severe pulmonary hypertension. Last ischemiceval with MPI 02/2024 which showed no ischemia. Will restart low-dose aspirin. Continue to monitor. Carotid artery disease, PAD. Continue aspirin and statin Hyperlipidemia. Continue statin. Aortic valve disease. Transthoracic echocardiogram pending. Further recommendations dependent upon clinical course, response to treatment, and results of diagnostics. HPI: Mr. Sims is a pleasant 69-year-old gentleman. He has a very complicated medical history that includes coronary artery disease, paroxysmal atrial fibrillation status post PVI in 2015 on Coumadin, severe aortic stenosis status post mechanical aortic valve replacement in 1999 with bioprosthetic AVR in 2013, carotid artery disease, hyperlipidemia, diabetes, hypertension, congestive heart failure, peripheral arterial disease, COPD, CVA, PAD. On 08/18/2024, after eating breakfast in a restaurant, while walking to his car, he tripped over a curb and fell. Initially, he did not seek medical evaluation or treatment. However, over the last few days he has felt worse. He reports that he has had increased shortness of breath and orthopnea. Healso reports leg swelling and a 16 pound weight gain. He reports palpitations but no chest pain. Subsequently, he presented to the emergency room where his creatinine was 2.02. He was hyperkalemic aswell. He was very short of breath with any exertion. Additionally, he was very weak and fatigued. He was given Lasix. Creatinine increased to 3.1 and proBNP 7121. Chest imaging demonstrated acute right seventh and eighth rib fracture. Therefore, he was transferred to [facility] for furtherevaluation and management of heart failure. Upon transfer to [facility], proBNP 8481. CPK normal. Creatinine 2.84. His baseline is around 1.7. Mild leukocytosis . H&H stable. Twelve-lead EKG demonstrates atrial fibrillation with controlled ventricular response. Currently he reports that he has lost his voice. He also reports dyspnea with minimal exertion and orthopnea. He has lower extremity edema and cough. He denies chest pain. He continues to have intermittent palpitations. Transthoracic echocardiogram in February 2024 demonstrated ejection fraction 40 to 45%. Moderate globalhypokinesis. Past Medical History: Diagnosis Date ??? Abnormal [...] performed by Kilo Navarro MD at [facility] OR ??? COLONOSCOPY N/A 01/27/2022 COLONOSCOPY WITH COLD SNARE POLYPECTOMY performed by Kilo Navarro MD at [facility] OR ??? HIP ARTHROPLASTY Left ??? KNEE ARTHROPLASTY Bilateral ??? REPAIR ROTATOR CUFF W/ OR W/O ACROMIOPLASTY Left ??? USE NEMO+CARDIOVERSION 03/24/2016 ??? XA A-FIB ABLATION 10/23/2015 PVI/[facility] Medications Prior to Admission Medication Sig Dispense Refill ??? albuterol sulfate HFA 108 (90 Base) MCG/ACT inhaler Inhale 2 puffs into the lungs every 4 (four) hours as needed. ??? allopurinol 300 MG tablet Take 1 tablet (300 mg total) by mouth daily. ??? atorvastatin 80 MG tablet Take 1 tablet (80 mg total) by mouth nightly at bedtime. ??? carvedilol (COREG) 3.125 MG tablet Take 1 tablet (3.125 mg total) by mouth 2 (two) times daily. ??? clotrimazole-betamethasone (LOTRISONE) cream 1 Application every 12 (twelve) hours. ??? docusate sodium 100 MG capsule Take 1 capsule (100 mg total) by mouth as needed for Constipation. ??? folic acid (FOLVITE) 1 MG tablet Take 1 tablet (1 mg total) by mouth daily. ??? furosemide (LASIX) 80 MG tablet Take 1 tablet (80 mg total) by mouth daily. 30 tablet 0 ??? glipiZIDE XL (GLUCOTROL XL) 5 MG 24 hr tablet Take 1 tablet (5 mg total) by mouth daily with breakfast. 30 tablet 0 ??? HYDROcodone-acetaminophen (NORCO) 7.5-325 MG tablet Take 1 tablet by mouth every 8 (eight) hours as needed for Pain. ??? hydrOXYzine (ATARAX) 50 MG tablet Take 1 tablet (50 mg total) by mouth 3 (three) times daily. As needed ??? JARDIANCE 25 MG tablet Take 1 tablet (25 mg total) by mouth daily. ??? nystatin (MYCOSTATIN) powder Apply topically 2 (two) times daily. Apply to groin, under abdominal fold 15 g 0 ??? pantoprazole EC 40 MG tablet Take 1 tablet (40 mg total) by mouth daily. ??? pregabalin (LYRICA) 150 MG capsule Take 1 capsule (150 mg total) by mouth 2 (two) times daily. ??? sacubitril-valsartan (ENTRESTO) 24-26 MG tablet Take 1 tablet by mouth 2 (two) times daily. 60 tablet 11 ??? Semaglutide (OZEMPIC, 1 MG/DOSE, SC) Inject into the skin once a week. ??? sertraline 50 MG tablet Take 1 tablet (50 mg total) by mouth daily. ??? traZODone (DESYREL) 150 MG tablet Take 2 tablets (300 mg total) by mouth nightly at bedtime. ??? TRELEGY ELLIPTA 100-62.5-25 MCG/ACT AEROSOL POWDER, BREATH ACTIVATED Inhale 1 puff into the lungs daily. ??? warfarin (COUMADIN) 4 MG tablet Take 1 tablet (4 mg total) by mouth daily. Monitor INR every 3-4 days and follow up closely with PCP (Patient taking differently: Take 0.5 tablets (2 mg total) by mouth daily. Monitor INR every 3-4 days and follow up closely with PCP) 30 tablet 0 No Known Allergies Social History Tobacco Use ??? Smoking status: Former Passive exposure: Past ??? Smokeless tobacco: Former Types: Chew Substance Use Topics ??? Alcohol use: Yes Comment: 4 beers per week Family History Problem Relation Name Age of Onset ??? TB Mother Review of Systems: Review of Systems Constitutional: Positive for weakness. Negative for recent unintentional weight gain, recent unintentional weight loss and new or significant fatigue. HENT: Negative for new or significant hearing loss. Eyes: Negative for blurred vision and double vision. Respiratory: Positive for cough and shortness of breath. Negative for snoring. Cardiovascular: See HPI. Positive for leg swelling. Gastrointestinal: Negative for blood in stool and melena. Genitourinary: Negative for dysuria. Musculoskeletal: Negative for myalgias and new or worsening joint stiffness/pain. Skin: Negative for rash. Neurological: Negative for tingling/numbness and focal weakness. Endo/Heme/Allergies: Negative for new or significant bruising/bleeding and polydipsia. Psychiatric/Behavioral: Negative for depression and new or significant memory loss. Medications: Scheduled Meds: ??? [START ON 09/01/2024] allopurinol 300 mg Oral Daily ??? atorvastatin 80 mg Oral Nightly at bedtime ??? carvedilol 3.125 mg Oral BID ??? clotrimazole-betamethasone Topical Q12H ??? [START ON 09/01/2024] empagliflozin 25 mg Oral Daily ??? [START ON 09/01/2024] folic acid 1 mg Oral Daily ??? furosemide 80 mg Intravenous Daily ??? insulin lispro 0-6 Units Subcutaneous Q6H ??? mometasone-formoterol 2 puff Inhalation 2 times daily ??? nystatin Topical BID ??? [START ON 09/01/2024] pantoprazole EC 40 mg Oral Daily ??? pregabalin 150 mg Oral BID ??? [START ON 09/01/2024] sertraline 50 mg Oral Daily ??? tiotropium 2 puff Inhalation Daily ??? traZODone 300 mg Oral Nightly at bedtime Continuous Infusions: PRN Meds: acetaminophen, albuterol sulfate HFA, HYDROcodone-acetaminophen, HYDROmorphone, hydrOXYzine, naLOXone, ondansetron, polyethylene glycol Meds Prior to Admission: Medications Prior to Admission Medication Sig Dispense Refill ??? albuterol sulfate HFA 108 (90 Base) MCG/ACT inhaler Inhale 2 puffs into the lungs every 4 (four) hours as needed. ??? allopurinol 300 MG tablet Take 1 tablet (300 mg total) by mouth daily. ??? atorvastatin 80 MG tablet Take 1 tablet (80 mg total) by mouth nightly at bedtime. ??? carvedilol (COREG) 3.125 MG tablet Take 1 tablet (3.125 mg total) by mouth 2 (two) times daily. ??? clotrimazole-betamethasone (LOTRISONE) cream 1 Application every 12 (twelve) hours. ??? docusate sodium 100 MG capsule Take 1 capsule (100 mg total) by mouth as needed for Constipation. ??? folic acid (FOLVITE) 1 MG tablet Take 1 tablet (1 mg total) by mouth daily. ??? furosemide (LASIX) 80 MG tablet Take 1 tablet (80 mg total) by mouth daily. 30 tablet 0 ??? glipiZIDE XL (GLUCOTROL XL) 5 MG 24 hr tablet Take 1 tablet (5 mg total) by mouth daily with breakfast. 30 tablet 0 ??? HYDROcodone-acetaminophen (NORCO) 7.5-325 MG tablet Take 1 tablet by mouth every 8 (eight) hours as needed for Pain. ??? hydrOXYzine (ATARAX) 50 MG tablet Take 1 tablet (50 mg total) by mouth 3 (three) times daily. As needed ??? JARDIANCE 25 MG tablet Take 1 tablet (25 mg total) by mouth daily. ??? nystatin (MYCOSTATIN) powder Apply topically 2 (two) times daily. Apply to groin, under abdominal fold 15 g 0 ??? pantoprazole EC 40 MG tablet Take 1 tablet (40 mg total) by mouth daily. ??? pregabalin (LYRICA) 150 MG capsule Take 1 capsule (150 mg total) by mouth 2 (two) times daily. ??? sacubitril-valsartan (ENTRESTO) 24-26 MG tablet Take 1 tablet by mouth 2 (two) times daily. 60 tablet 11 ??? Semaglutide (OZEMPIC, 1 MG/DOSE, SC) Inject into the skin once a week. ??? sertraline 50 MG tablet Take 1 tablet (50 mg total) by mouth daily. ??? traZODone (DESYREL) 150 MG tablet Take 2 tablets (300 mg total) by mouth nightly at bedtime. ??? TRELEGY ELLIPTA 100-62.5-25 MCG/ACT AEROSOL POWDER, BREATH ACTIVATED Inhale 1 puff into the lungs daily. ??? warfarin (COUMADIN) 4 MG tablet Take 1 tablet (4 mg total) by mouth daily. Monitor INR every 3-4 days and follow up closely with PCP (Patient taking differently: Take 0.5 tablets (2 mg total) by mouth daily. Monitor INR every 3-4 days and follow up closely with PCP) 30 tablet 0 OBJECTIVE Last Recorded Weight 08/31/24 0947 Weight: 109.8 kg (242 lb 1 oz) Current BMI: Body mass index is 39.07 kg/m??. Vital signs: Vitals: 08/31/24 1553 BP: 109/56 Pulse: 81 Resp: 20 Temp: 97.7 ??F (36.5 ??C) SpO2: 97% Physical Exam Constitutional: Appearance: He is ill-appearing. HENT: Head: Normocephalic. Eyes: Pupils: Pupils are equal, round, and reactive to light. Cardiovascular: Rate and Rhythm: Rhythm irregular. Pulmonary: Effort: Pulmonary effort is normal. Musculoskeletal: Right lower leg: Edema present. Left lower leg: Edema present. Skin: Findings: Bruising present. Neurological: General: No focal deficit present. Mental Status: He is alert and oriented to person, place, and time. Psychiatric: Mood and Affect: Mood normal. Behavior: Behavior normal. Labs and Cultures: Lab Results Component Value Date NA 135 (L) 08/31/2024 K 5.0 08/31/2024 CL 106 08/31/2024 CO2 23.8 08/31/2024 BUN 77 (H) 08/31/2024 CR 2.84 (H) 08/31/2024 GFRNON 37 12/19/2021 GFRNON 37 12/19/2021 GFR --- 12/19/2021 GLU 103 08/31/2024 CA 8.9 08/31/2024 TROP 48 07/31/2024 TROP 30 05/02/2024 TROP 45 07/12/2023 PBNP 8,481 (H) 08/31/2024 Lab Results Component Value Date WBC 11.40 (H) 08/31/2024 HGB 10.9 (L) 08/31/2024 PLT 85 (L) 08/31/2024 INR 1.8 (H) 08/31/2024 Lab Results Component Value Date ALB 3.0 (L) 08/31/2024 AST 19 08/31/2024 ALT 22 08/31/2024 HGBA1C 8.0 (H) 02/17/2023 TSH 6.516 (H) 05/02/2024 Imaging: XR CHEST PORTABLE Result Date: 08/31/2024 [facility] [address] [place], [place] [address] Examination: XR CHEST PORTABLE Exam time: 08/31/2024 10:12 AM Clinical history: Cough Comparison: 07/31/2024 Technique: AP chest Findings: Shallow inspiration with patient slightly rotated. Post midline sternotomy changes with prosthetic valve. Borderline cardiomegaly similar to previous study. Persistent pulmonaryvascular congestion and interstitial edema very similar to the previous study. No new airspace consolidation. No pleural effusion. IMPRESSION: 1) Borderline cardiomegaly with persistent pulmonary vascular congestion and interstitial edema very similar to previous study. Ordered By: JEAN LINDSAY Interpreted By: Rigoberto Calderon MD, 08/31/2024 3:04 PM ECG 12 lead Result Date: 08/31/2024 [address] [place] [place] [address] Test Date: 2024-08-31 Pat Name: [facility] Department: 1 Room: [facility] Gender: Male Dot Etcher Apprentice: Ti : 1955 Requested By: ZARIA THACKER Order Number: [id number] Reading MD: Measurements Intervals [place] Rate: 80 P: TN: 0 QRS: -32 QRSD: 147 T: 128 QT: 379 QTc: 439 Interpretive Statements ATRIAL FIBRILLATION LEFT AXIS DEVIATION [QRS AXIS < -30] LEFT BUNDLE BRANCH BLOCK [120+ ms QRS DURATION, 80+ ms Q/SIN V1/V2, 85+ ms R IN I/aVL/V5/V6] Results for orders placed or performed during the hospital encounter of 08/31/24 ECG 12 lead Narrative [address] [address] Test Date: 2024-08-31 Pat Name: [facility] Department: 1 Room: [facility] Gender: Male Dot Etcher Apprentice: Ti : 1955 Requested By: ZARIA THACKER Order Number: [id number] Reading MD: Measurements Intervals [place] Rate: 80 P: TN: 0 QRS: -32 QRSD: 147 T: 128 QT: 379 QTc: 439 Interpretive Statements ATRIAL FIBRILLATION LEFT AXIS DEVIATION [QRS AXIS < -30] LEFT BUNDLE BRANCH BLOCK [120+ ms QRS DURATION, 80+ ms Q/S IN V1/V2, 85+ ms R IN I/aVL/V5/V6] Signed SHEREEN DUNCAN NP 08/31/2024 ROOM SUPERVISOR ROOM SUPERVISOR ROOM SUPERVISOR * Ludy Morrell MD - 08/31/2024 3:01 PM CSTAssociated Order(s): IP CONSULT TO NEPHROLOGY [facility] Nephrology Consult Note Attending Provider: Jean Lindsay MD PCP: MEGAN INFANTE MD Obie Sims is an 69-year-old male. Reason for Admission: CHF exacerbation ([facility]) Reason for Consult: BRITTANY on CKD HPI: 69-year-old gentleman with past medical history significant for CKD stage III, atrial fibrillation,heart failure with reduced ejection fraction, coronary disease, aortic stenosis status post bioprosthetic aortic valve placement, pulmonary hypertension, COPD, obstructive sleep apnea, dyslipidemia, diabetes mellitus type 2, stroke, anxiety, hypertension, restless leg syndrome who presented due to BRITTANY and hyperkalemia. Patient had a fall on 08/18/2024, initially declined treatment but ultimately presented to outside ED 2 days ago with rib pain and knee pain. He also reported shortness of breath and lower extremity swelling. His creatinine was found to be 2 with potassium 5.9. Patient transferred to [facility] for BRITTANY and hyperkalemia management. I am consulted to manage kidney disease Past Medical History: Diagnosis Date Abnormal ankle brachial index ([facility]) Acute on chronic heart failure, unspecified heart failure type ([facility]) Anxiety Aortic valve stenosis Arthritis Asthma, mild persistent ([facility]) 04/06/2021 Atrial fibrillation ([facility]) s/p PVI/[facility] 10/2015 Bilateral leg pain Carotid disease, bilateral ([facility]) CHF (congestive heart failure) ([facility]) Claudication ([facility]) COPD (chronic obstructive pulmonary disease) ([facility]) Coronary artery disease Diabetes mellitus, type II ([facility]) Edema 04/19/2018 2+ pitting History of blood transfusion Hyperlipidemia Hypertension LV dysfunction Non-pressure chronic ulcer of left calf limited to breakdown of skin ([facility]) Non-pressure chronic ulcer of right [...] use: Yes Comment: 4 beers per week Past Surgical History: Procedure Laterality Date APPENDECTOMY CARDIAC VALVE REPLACEMENT 1999 CARDIAC VALVE REPLACEMENT 2013 CARDIOVERSION EXTERNAL 10/01/2015 CARDIOVERSION EXTERNAL 04/14/2012 COLONOSCOPY N/A 03/18/2021 COLONOSCOPY (Incomplete) performed by Kilo Navarro MD at [facility] OR COLONOSCOPY N/A 01/27/2022 COLONOSCOPY WITH COLD SNARE POLYPECTOMY performed by Kilo Navarro MD at [facility] OR HIP ARTHROPLASTY Left KNEE ARTHROPLASTY [...] tablet (300 mg total) by mouth daily. atorvastatin 80 MG tablet Take 1 tablet (80 mg total) by mouth nightly at bedtime. carvedilol (COREG) 3.125 MG tablet Take 1 tablet (3.125 mg total) by mouth 2 (two) times daily. clotrimazole-betamethasone (LOTRISONE) cream 1 Application every 12 (twelve) hours. docusate sodium 100 MG capsule Take 1 capsule (100 mg total) by mouth as needed for Constipation. folic acid (FOLVITE) 1 MG tablet Take 1 tablet (1 mg total) by mouth daily. furosemide (LASIX) 80 MG tablet Take 1 tablet (80 mg total) by mouth daily. glipiZIDE XL (GLUCOTROL XL) 5 MG 24 [...] tablet (25 mg total) by mouth daily. nystatin (MYCOSTATIN) powder Apply topically 2 (two) times daily. Apply to groin, under abdominal fold pantoprazole EC 40 MG tablet Take 1 tablet (40 mg total) by mouth daily. pregabalin (LYRICA) 150 MG capsule Take 1 capsule (150 mg total) by mouth 2 (two) times daily. sacubitril-valsartan (ENTRESTO) 24-26 MG tablet Take 1 tablet by mouth 2 (two) times daily. Semaglutide (OZEMPIC, 1 MG/DOSE, SC) Inject into the skin once a week. sertraline 50 MG tablet Take 1 tablet (50 mg total) by mouth daily. traZODone (DESYREL) 150 MG tablet Take 2 tablets (300 mg total) by mouth nightly at bedtime. TRELEGY ELLIPTA 100-62.5-25 MCG/ACT AEROSOL POWDER, BREATH ACTIVATED Inhale 1 puff into the lungs daily. warfarin (COUMADIN) 4 MG tablet Take 1 tablet (4 mg total) by mouth daily. Monitor INR every 3-4 days and follow up closely with PCP (Patient taking differently: Take 0.5 tablets (2 mg total) by mouth daily. Monitor INR every 3-4 days and follow up closely with PCP) Medications Discontinued During This Encounter Medication Reason HYDROcodone-acetaminophen (NORCO) 10-325 MG tablet Error insulin lispro (HUMALOG/ADMELOG) injection 0-6 Units warfarin (COUMADIN) pharmacy to dose placeholder Ordering Physician Current Facility-Administered Medications Medication Dose Route Frequency Provider Last Rate Last Admin acetaminophen (TYLENOL) tablet 650 mg 650 mg Oral Q4H PRN ALONDRA Christianson albuterol sulfate HFA 108 (90 Base) MCG/ACT inhaler 2 puff 2 puff Inhalation Q4H PRN ALONDRA Christianson [START ON 09/01/2024] allopurinol (ZYLOPRIM) tablet 300 mg 300 mg Oral Daily ALONDRA Christianson atorvastatin (LIPITOR) tablet 80 mg 80 mg Oral Nightly at bedtime ALONDRA Christianson carvedilol (COREG) tablet 3.125 mg 3.125 mg Oral BID ALONDRA Christianson clotrimazole-betamethasone (LOTRISONE) cream Topical Q12H ALONDRA Christianson [START ON 09/01/2024] empagliflozin (JARDIANCE) tablet 25 mg 25 mg Oral Daily ALONDRA Christianson [START ON 09/01/2024] folic acid (FOLVITE) tablet 1 mg 1 mg Oral Daily ALONDRA Christianson furosemide (LASIX) injection 80 mg 80 mg Intravenous Daily ALONDRA Crhistianson 80 mg at 08/31/24 1345 HYDROcodone-acetaminophen (NORCO) 5-325 MG tablet 1 tablet 1 tablet Oral Q4H PRN ALONDRA Christianson HYDROmorphone (DILAUDID) injection 0.2 mg 0.2 mg Intravenous Q2H PRN ALONDRA Christianson hydrOXYzine (ATARAX) tablet 50 mg 50 mg Oral TID PRN ALONDRA Christianson insulin lispro (HUMALOG/ADMELOG) injection 0-6 Units 0-6 Units Subcutaneous Q6H ALONDRA Christianson mometasone-formoterol (DULERA) 100-5 MCG/ACT inhaler 2 puff 2 puff Inhalation 2 times daily ALONDRA Christianson 2 puff at 08/31/24 1346 naLOXone (NARCAN) injection 0.4 mg 0.4 mg Intravenous PRN ALONDRA Christianson nystatin (MYCOSTATIN) powder Topical BID ALONDRA Christianson ondansetron (ZOFRAN) injection 4 mg 4 mg Intravenous Q8H PRN ALONDRA Christianson [START ON 09/01/2024] pantoprazole EC (PROTONIX) tablet 40 mg 40 mg Oral Daily ALONDRA Christianson polyethylene glycol (GLYCOLAX) packet 17 g 17 g Oral Daily PRN ALONDRA Christianson pregabalin (LYRICA) capsule 150 mg 150 mg Oral BID ALONDRA Christianson [START ON 09/01/2024] sertraline (ZOLOFT) tablet 50 mg 50 mg Oral Daily ALONDRA Christianson tiotropium (SPIRIVA RESPIMAT) 2.5 MCG/ACT inhaler 2 puff 2 puff Inhalation Daily ALONDRA Christianson 2 puff at 08/31/24 1346 traZODone (DESYREL) tablet 300 mg 300 mg Oral Nightly at bedtime ALONDRA Christianson Review of Systems: -As in HPI. 12 point review system otherwise negative Vitals: Blood pressure 117/53, pulse 90, temperature 98 ??F (36.7 ??C), temperature source Oral, resp. rate 20, height 1.676 m (5' 6 ), weight 109.8 kg (242 lb 1 oz), SpO2 100%. Last 3 Recorded Weights 08/31/24 0947 Weight: 109.8 kg (242 lb 1 oz) Intake/Output Summary (Last 24 hours) at 08/31/2024 1501 Last data filed at 08/31/2024 1402 Gross per 24 hour Intake -- Output 800 ml Net -800 ml Physical Exam: -GENERAL: No acute distress, breathing comfortably on room air. -EYES: Extraocular movements intact -ENT: Neck supple, Septum is midline. -LUNG: Clear to auscultation bilaterally, No wheezes, No crackles -CVS: Regular rate rhythm, S1 and S2 normal, No murmurs, -ABDOMEN: Soft, nondistended, Nontender, Bowel sounds observed -EXT: + lower Ext edema. -NEURO: Alert, awake, oriented x3, No gross neuro deficit -SKIN: Skin color, texture, turgor normal. No rashes or lesions LABs Recent Labs Lab 08/31/24 1035 NA 135* K 5.0 CL 106 CO2 23.8 AGAP 5.2 BUN 77* CR 2.84* GLU 103 CA 8.9 Recent Labs Lab 08/31/24 1035 WBC 11.40* RBC 3.74* HGB 10.9* HCT 34.9* MCV 93.3 MCH 29.1 MCHC 31.2* PLT 85* RDW 16.1* MPV 11.8* Assessment/Plan: 69-year-old gentleman with past medical history significant for CKD stage III, atrial fibrillation,heart failure with reduced ejection fraction, coronary disease, aortic stenosis status post bioprosthetic aortic valve placement, pulmonary hypertension, COPD, obstructive sleep apnea, dyslipidemia, diabetes mellitus type 2, stroke, anxiety, hypertension, restless leg syndrome who presented due to BRITTANY and hyperkalemia. Patient had a fall on 08/18/2024, initially declined treatment but ultimately presented to outside ED 2 days ago with rib pain and knee pain. He also reported shortness of breath and lower extremity swelling. His creatinine was found to be 2 with potassium 5.9. Patient transferred to [facility] for BRITTANY and hyperkalemia management. 1.BRITTANY on CKD stage III -Baseline creatinine 1.3-1.5. Patient also Dr. Beltran -At outside hospital creatinine was 2.0, patient received fluids and creatinine increased to 2.8. This could be cardiorenal syndrome -CPK, urinalysis, urine lites, kidney ultrasound, BRITTANY serology requested -Chest x-ray shows pulmonary vascular congestion and interstitial edema -Strict I's/O, avoid nephrotoxins -Okay to continue Lasix as patient has pulmonary edema and volume overloaded -Monitor kidney function and electrolytes 2.HTN Blood pressure stable Avoid ACEI/ARB 3.Anemia of chronic disease Hemoglobin 10.9. Continue to monitor 4.FEN Hyperkalemia resolved with medical management. Continue to monitor closely Mild hypervolemic hyponatremia. On Lasix. Fluid restriction 1.5 L/day 5.Renal osteodystrophy Calcium within normal. Check phosphorus, PTH, vitamin D Thank you for allowing me to participate in the care of this patient. We will continue to follow this patient with you. Please contact us with further questions. LUDY MORRELL MD 08/31/2024 ROOM SUPERVISOR ROOM SUPERVISOR documented in this encounter Nursing Notes * Nnea Culver LPN - 09/21/2024 9:55 AM CSTSummary: avs AVS and lab orders faxed to [phone] ROOM SUPERVISOR * Nikhil Haney RN - 09/21/2024 5:27 AM CST Patient had a 16-beat run of VTs while he was asleep. He was awakened for vitals measurements. Theywere WNL, and patient denied any discomfort. Most recent K level yesterday and MG a couple days agowere WNL. Only PT/INR were ordered for this morning. Do you want a BMP and Mg added? Order receivedfrom Dr. Jiménez. Dr. Gonzáles (cardiology notified via [facility]. MD acknowledged message ROOM SUPERVISOR ROOM SUPERVISOR * Mayda Colon RN - 09/03/2024 10:32 PM CSTSummary: UNDERGROUND ROOF BOLTER Rapid response was called for hypoxia and desaturating down to 60%. Pt was on 6L o2 and placed in Bipap by nursing staff. Pt's sats increased slowly, but patient still seemed to be struggling. Dr. Jiménez assessed patient and notified mergers and acquisitions associate software configuration analyst (Dr. Rubi). Dr. Rubi accepted patient to ICU. Pt was transported to ICU B11 with bipap on by nursing staff. Dr. Rubi at bedside to assess patient. Pt agreeable to intubation at that time, so aptient was intubated without incident. CVCU RN gave report to Fany INSTRUCTION LIBRARIAN and care was handed over to her at that time. ROOM SUPERVISOR documented in this encounter Plan of Treatment Upcoming Encounters Date Type Department Care Team (Late st Contact Info) Description 09/25/2024 2:00 PM WAX ROOM SUPERVISOR Appointment [facility] [address] [place] [address] Andre Zayra Oli, MARINE MAMMAL TRAINER [address] [place] [address] 10/16/2024 3:30 PM WAX ROOM SUPERVISOR Office Visit [facility] [address] [place] [id number] Brit Gonzáles MD [address] [place] [address] Scheduled Orders Name Type Priority Associated Diagnoses Orde r Schedule CBC W/DIFF AUTOMATED Lab Routine Acute hypercapnic respiratory failure ([facility]) Expected: 09/28/2024, Expires: 10/20/2024 BASIC METABOLIC PANEL Lab Routine Acute hypercapnic respiratory failure ([facility]) Expected: 09/28/2024, Expires: 10/20/2024 PROTIME/INR, VENOUS Lab Routine S/P aortic valve replacement with bioprosthetic valve Chronic anticoagulation Expected: 09/22/2024, Expires: 10/20/2024 documented as of this encounter Goals Goal Patient Goal Type Associated Problems Recent Progress Patient-Stated? Author Family - family caregiver with be involved in care transitions and discharge planning Lifestyle Karen Diane, YUNI documented as of this encounter Procedures Procedure Name Priority Date/Time Associated Diagnosis Comments POCT GLUCOSE - VALLECILLO DOCKED DEVICE Routine 09/21/2024 6:26 AM WAX ROOM SUPERVISOR BASIC METABOLIC PANEL STAT 09/21/2024 5:45 AM WAX ROOM SUPERVISOR MAGNESIUM STAT 09/21/2024 5:45 AM WAX ROOM SUPERVISOR PROTHROMBIN TIME, VENOUS Routine 09/21/2024 3:33 AM WAX ROOM SUPERVISOR POCT GLUCOSE - VALLECILLO DOCKED DEVICE Routine 09/20/2024 9:57 PM WAX ROOM SUPERVISOR POCT GLUCOSE - [employer] DOCKED DEVICE Routine 09/20/2024 3:50 PM [employer] RO[employer] SUPERVISOR POCT GLUCOSE - VALLECILLO DOCKED DEVICE Routine 09/20/2024 11:52 AM [employer] RO[employer] SUPERVISOR POCT GLUCOSE - VALLECI[employer] DOCKED DEVICE Routine 09/20/2024 11:26 AM [employer] RO[employer] SUPERVISOR POCT GLUCOSE - VALLECILLO DOCKED DEVICE Routine 09/20/2024 10:55 AM [employer] ROOM SUPERVISOR POCT GLUCOSE - VALLECILLO DOCKED DEVICE Routine 09/20/2024 6:33 AM [employer] RO[employer] SUPERVISOR PROTHROMBIN TIME, VENOUS Routine 09/20/2024 3:56 AM [employer] RO[employer] SUPERVISOR BASIC METABOLIC PANEL Routine 09/20/2024 3:56 AM [employer] RO[employer] SUPERVISOR POCT GLUCOSE - VALLECI[employer] DOCKED DEVICE Routine 09/19/2024 8:58 PM [employer] RO[employer] SUPERVISOR POCT GLUCOSE - VALLECILLO DOCKED DEVICE Routine 09/19/2024 4:36 PM [employer] ROOM SUPERVISOR POCT GLUCOSE - VALLECILLO DOCKED DEVICE Routine 09/19/2024 4:14 PM [employer] ROOM SUPERVISOR POCT GLUCOSE - VALLECILLO DOCKED DEVICE Routine 09/19/2024 11:30 AM [employer] ROOM SUPERVISOR POCT GLUCOSE - VALLECILLO DOCKED DEVICE Routine 09/19/2024 5:22 AM [employer] RO[employer] SUPERVISOR PROTHROMBIN TIME, VENOUS Routine 09/19/2024 3:42 AM [employer] ROOM SUPERVISOR POCT GLUCOSE - VALLECI[employer] DOCKED DEVICE Routine 09/18/2024 8:51 PM [employer] ROOM SUPERVISOR POCT GLUCOSE - VALLECILLO DOCKED DEVICE Routine 09/18/2024 4:23 PM [employer] ROOM SUPERVISOR POCT GLUCOSE - VALLECILLO DOCKED DEVICE Routine 09/18/2024 11:09 AM [employer] RO[employer] SUPERVISOR POCT GLUCOSE - VALLECILLO DOCKED DEVICE Routine 09/18/2024 6:04 AM [employer] RO[employer] SUPERVISOR RENAL FUNCTION PANEL Routine 09/18/2024 3:29 AM [employer] RO[employer] SUPERVISOR PROTHROMBIN TIME, VENOUS Routine 09/18/2024 3:29 AM [employer] ROOM SUPERVISOR POCT GLUCOSE - VALLECILLO DOCKED DEVICE Routine 09/17/2024 9:17 PM [employer] ROOM SUPERVISOR POCT GLUCOSE - VALLECILLO DOCKED DEVICE Routine 09/17/2024 4:44 PM [employer] ROOM SUPERVISOR POCT GLUCOSE - VALLECILLO DOCKED DEVICE Routine 09/17/2024 11:06 AM [employer] ROOM SUPERVISOR POCT GLUCOSE - VALLECI[employer]O DOCKED DEVICE Routine 09/17/2024 6:16 AM [employer] RO[employer] SUPERVISOR PROTHROMBIN TIME, VENOUS Routine 09/17/2024 5:57 AM [employer] RO[employer] SUPERVISOR BLOOD GAS, VENOUS Routine 09/17/2024 3:4 3 AM [employer] ROOM SUPERVISOR PHOSPHORUS, INORGANIC PHOSPHATE Routine 09/17/2024 3:43 AM [employer] ROOM SUPERVISOR MAGNESIUM Routine 09/17/2024 3:43 AM [employer] ROOM SUPERVISOR POCT GLUCOSE - VALLECI[employer] DOCKED DEVICE Routine 09/16/2024 9:35 PM [employer] ROOM SUPERVISOR POCT GLUCOSE - VALLECILLO DOCKED DEVICE Routine 09/16/2024 3:46 PM [employer] ROOM SUPERVISOR POCT GLUCOSE - VALLECILLO DOCKED DEVICE Routine 09/16/2024 10:53 AM [employer] ROOM SUPERVISOR POCT GLUCOSE - VALLECILLO DOCKED DEVICE Routine 09/16/2024 6:35 AM [employer] ROOM SUPERVISOR BLOOD GAS, VENOUS Routine 09/16/2024 4:2 1 AM [employer] ROOM SUPERVISOR PROTHROMBIN TIME, VENOUS Routine 09/16/2024 4:21 AM [employer] ROOM SUPERVISOR PHOSPHORUS, INORGANIC PHOSPHATE Routine 09/16/2024 4:21 AM [employer] ROOM SUPERVISOR MAGNESIUM Routine 09/16/2024 4:21 AM [employer] ROOM SUPERVISOR POCT GLUCOSE - VALLECILLO DOCKED DEVICE Routine 09/15/2024 9:22 PM [employer] ROOM SUPERVISOR POCT GLUCOSE - VALLECILL[employer] DOCKED DEVICE Routine 09/15/2024 4:46 PM WAX ROOM SUPERVISOR HOME O2 EVAL Routine 09/15/2024 12:42 PM [employer] ROOM SUPERVISOR POCT GLUCOSE - VALLECI[employer] DOCKED DEVICE Routine 09/15/2024 10:45 AM W[employer] ROOM SUPERVISOR BEDSIDE SPIROMETRY Routine 09/15/2024 9: 45 AM [employer] ROOM SUPERVISOR POCT GLUCOSE - VALLECILL[employer] DOCKED DEVICE Routine 09/15/2024 8:22 AM [employer] ROOM SUPERVISOR POCT GLUCOSE - VALLECILLO DOCKED DEVICE Routine 09/15/2024 7:20 AM [employer] ROOM SUPERVISOR POCT GLUCOSE - VALLECILLO DOCKED DEVICE Routine 09/15/2024 6:50 AM [employer] ROOM SUPERVISOR POCT GLUCOSE - VALLECILLO DOCKED DEVICE Routine 09/15/2024 6:17 AM [employer] ROOM SUPERVISOR BLOOD GAS, VENOUS Routine 09/15/2024 5:0 4 AM [employer] ROOM SUPERVISOR PROTHROMBIN TIME, VENOUS Routine 09/15/2024 5:04 AM [employer] ROOM SUPERVISOR BASIC METABOLIC PANEL Routine 09/15/2024 5:04 AM [employer] ROOM SUPERVISOR CBC, AUTO, NO DIFF Routine 09/15/2024 5: 04 AM [employer] ROOM SUPERVISOR PHOSPHORUS, INORGANIC PHOSPHATE Routine 09/15/2024 5:04 AM [employer] ROOM SUPERVISOR MAGNESIUM Routine 09/15/2024 5:04 AM [employer] ROOM SUPERVISOR POCT GLUCOSE - VALLECILLO DOCKED DEVICE Routine 09/14/2024 8:48 PM [employer] ROOM SUPERVISOR POCT GLUCOSE - VALLECILLO DOCKED DEVICE Routine 09/14/2024 5:23 PM [employer] ROOM SUPERVISOR POCT GLUCOSE - VALLECILLO DOCKED DEVICE Routine 09/14/2024 11:09 AM [employer] ROOM SUPERVISOR PROTHROMBIN TIME, VENOUS Routine 09/14/2024 9:49 AM [employer] ROOM SUPERVISOR POCT GLUCOSE - VALLECILLO DOCKED DEVICE Routine 09/14/2024 5:33 AM [employer] ROOM SUPERVISOR BLOOD GAS, VENOUS Routine 09/14/2024 3:4 8 AM [employer] RO[employer] SUPERVISOR COMPREHENSIVE METABOLIC PANEL Routine 09/14/2024 3:48 AM [employer] ROOM SUPERVISOR CBC W/DIFF AUTOMATED Routine 09/14/2024 3:48 AM [employer] ROOM SUPERVISOR PHOSPHORUS, INORGANIC PHOSPHATE Routine 09/14/2024 3:48 AM W[employer] ROOM SUPERVISOR MAGNESIUM Routine 09/14/2024 3:48 AM [employer] ROOM SUPERVISOR POCT GLUCOSE - VALLECILL[employer] DOCKED DEVICE Routine 09/13/2024 9:16 PM [employer] ROOM SUPERVISOR POCT GLUCOSE - VALLECI[employer] DOCKED DEVICE Routine 09/13/2024 3:52 PM [employer] RO[employer] SUPERVISOR BLOOD GAS, VENOUS TIMED 09/13/2024 1:0 0 PM [employer] RO[employer] SUPERVISOR POCT GLUCOSE - VALLECI[employer] DOCKED DEVICE Routine 09/13/2024 11:30 AM [employer] ROOM SUPERVISOR POCT GLUCOSE - VALLECILLO DOCKED DEVICE Routine 09/13/2024 6:33 AM [employer] ROOM SUPERVISOR BLOOD GAS, VENOUS Routine 09/13/2024 4:5 8 AM [employer] ROOM SUPERVISOR PROTHROMBIN TIME, VENOUS Routine 09/13/2024 4:58 AM [employer] ROOM SUPERVISOR PHOSPHORUS, INORGANIC PHOSPHATE Routine 09/13/2024 4:58 AM [employer] ROOM SUPERVISOR MAGNESIUM Routine 09/13/2024 4:58 AM [employer] ROOM SUPERVISOR POCT GLUCOSE - VALLECILLO DOCKED DEVICE Routine 09/12/2024 9:25 PM [employer] ROOM SUPERVISOR POCT GLUCOSE - VALLECILLO DOCKED DEVICE Routine 09/12/2024 5:30 PM [employer] ROOM SUPERVISOR POCT GLUCOSE - VALLECILLO DOCKED DEVICE Routine 09/12/2024 4:19 PM [employer] ROOM SUPERVISOR POCT GLUCOSE - VALLECILLO DOCKED DEVICE Routine 09/12/2024 11:32 AM [employer] RO[employer] SUPERVISOR POCT GLUCOSE - VALLECILLO DOCKED DEVICE Routine 09/12/2024 6:27 AM [employer] RO[employer] SUPERVISOR BLOOD GAS, VENOUS Routine 09/12/2024 3:1 2 AM [employer] RO[employer] SUPERVISOR PROTHROMBIN TIME, VENOUS Routine 09/12/2024 3:12 AM [employer] RO[employer] SUPERVISOR BASIC METABOLIC PANEL Routine 09/12/2024 3:12 AM [employer] RO[employer] SUPERVISOR CBC W/DIFF AUTOMATED Routine 09/12/2024 3:12 AM [employer] RO[employer] SUPERVISOR PHOSPHORUS, INORGANIC PHOSPHATE Routine 09/12/2024 3:12 AM [employer] ROOM SUPERVISOR MAGNESIUM Routine 09/12/2024 3:12 AM [employer] ROOM SUPERVISOR POCT GLUCOSE - VALLECILLO DOCKED DEVICE Routine 09/11/2024 8:30 PM [employer] ROOM SUPERVISOR POCT GLUCOSE - VALLECILLO DOCKED DEVICE Routine 09/11/2024 4:08 PM [employer] ROOM SUPERVISOR POCT GLUCOSE - VALLECILLO DOCKED DEVICE Routine 09/11/2024 12:21 PM [employer] ROOM SUPERVISOR ECG 12-LEAD STAT 09/11/2024 5:38 AM [employer] RO[employer] SUPERVISOR POCT GLUCOSE - VALLECILLO DOCKED DEVICE Routine 09/11/2024 5:32 AM [employer] RO[employer] SUPERVISOR BLOOD GAS, VENOUS Routine 09/11/2024 3:5 8 AM [employer] RO[employer] SUPERVISOR PROTHROMBIN TIME, VENOUS Routine 09/11/2024 3:58 AM [employer] RO[employer] SUPERVISOR COMPREHENSIVE METABOLIC PANEL Routine 09/11/2024 3:58 AM [employer] RO[employer] SUPERVISOR CBC W/DIFF AUTOMATED Routine 09/11/2024 3:58 AM [employer] RO[employer] SUPERVISOR PHOSPHORUS, INORGANIC PHOSPHATE Routine 09/11/2024 3:58 AM [employer] ROOM SUPERVISOR MAGNESIUM Routine 09/11/2024 3:58 AM [employer] ROOM SUPERVISOR POCT GLUCOSE - VALLECILLO DOCKED DEVICE Routine 09/10/2024 9:08 PM [employer] ROOM SUPERVISOR POCT GLUCOSE - VALLECILLO DOCKED DEVICE Routine 09/10/2024 4:09 PM [employer] ROOM SUPERVISOR POCT GLUCOSE - VALLECILLO DOCKED DEVICE Routine 09/10/2024 12:03 PM [employer] RO[employer] SUPERVISOR POCT GLUCOSE - VALLECILLO DOCKED DEVICE Routine 09/10/2024 6:16 AM [employer] RO[employer] SUPERVISOR BLOOD GAS, VENOUS Routine 09/10/2024 5:4 9 AM [employer] RO[employer] SUPERVISOR PROTHROMBIN TIME, VENOUS Routine 09/10/2024 5:49 AM [employer] ROOM SUPERVISOR BASIC METABOLIC PANEL Routine 09/10/2024 5:49 AM [employer] ROOM SUPERVISOR PHOSPHORUS, INORGANIC PHOSPHATE Routine 09/10/2024 5:49 AM W[employer] ROOM SUPERVISOR MAGNESIUM Routine 09/10/2024 5:49 AM [employer] RO[employer] SUPERVISOR CBC W/DIFF AUTOMATED Routine 09/10/2024 5:47 AM [employer] RO[employer] SUPERVISOR POCT GLUCOSE - VALLECILLO DOCKED DEVICE Routine 09/09/2024 10:02 PM [employer] ROOM SUPERVISOR POCT GLUCOSE - VALLECILLO DOCKED DEVICE Routine 09/09/2024 3:51 PM [employer] ROOM SUPERVISOR POCT GLUCOSE - VALLECILLO DOCKED DEVICE Routine 09/09/2024 1:00 PM [employer] RO[employer] SUPERVISOR BLOOD GAS, VENOUS TIMED 09/09/2024 12:50 PM [employer] RO[employer] SUPERVISOR BLOOD GAS, VENOUS Routine 09/09/2024 6:1 0 AM [employer] RO[employer] SUPERVISOR PROTHROMBIN TIME, VENOUS Routine 09/09/2024 6:10 AM [employer] RO[employer] SUPERVISOR COMPREHENSIVE METABOLIC PANEL Routine 09/09/2024 6:10 AM [employer] RO[employer] SUPERVISOR CBC W/DIFF AUTOMATED Routine 09/09/2024 6:10 AM [employer] ROOM SUPERVISOR PHOSPHORUS, INORGANIC PHOSPHATE Routine 09/09/2024 6:10 AM [employer] RO[employer] SUPERVISOR MAGNESIUM Routine 09/09/2024 6:10 AM W[employer] RO[employer] SUPERVISOR XR CHEST PORTABLE Routine 09/09/2024 6:0 2 AM [employer] RO[employer] SUPERVISOR POCT GLUCOSE - [employer] DOCKED DEVICE Routine 09/09/2024 5:52 AM [employer] RO[employer] SUPERVISOR POCT GLUCOSE - VALLECILL[employer] DOCKED DEVICE Routine 09/08/2024 9:27 PM [employer] ROOM SUPERVISOR POCT GLUCOSE - VALLECILL[employer] DOCKED DEVICE Routine 09/08/2024 4:51 PM [employer] RO[employer] SUPERVISOR POCT GLUCOSE - VALLECILL[employer] DOCKED DEVICE Routine 09/08/2024 11:05 AM [employer] RO[employer] SUPERVISOR VANCOMYCIN TIMED 09/08/2024 10:37 AM [employer] RO[employer] SUPERVISOR BLOOD GAS, VENOUS Routine 09/08/2024 4:5 3 AM [employer] RO[employer] SUPERVISOR PROTHROMBIN TIME, VENOUS Routine 09/08/2024 4:53 AM [employer] RO[employer] SUPERVISOR COMPREHENSIVE METABOLIC PANEL Routine 09/08/2024 4:53 AM [employer] RO[employer] SUPERVISOR CBC W/DIFF AUTOMATED Routine 09/08/2024 4:53 AM [employer] RO[employer] SUPERVISOR PHOSPHORUS, INORGANIC PHOSPHATE Routine 09/08/2024 4:53 AM [employer] ROOM SUPERVISOR MAGNESIUM Routine 09/08/2024 4:53 AM [employer] ROOM SUPERVISOR POCT GLUCOSE - VALLECILL[employer] DOCKED DEVICE Routine 09/08/2024 4:10 AM [employer] RO[employer] SUPERVISOR POCT GLUCOSE - VALLECILLO DOCKED DEVICE Routine 09/08/2024 1:05 AM [employer] RO[employer] SUPERVISOR POCT GLUCOSE - VALLECILL[employer] DOCKED DEVICE Routine 09/07/2024 9:39 PM [employer] RO[employer] SUPERVISOR POCT GLUCOSE - VALLECILL[employer] DOCKED DEVICE Routine 09/07/2024 5:36 PM [employer] RO[employer] SUPERVISOR XR SPEECH SWALLOW SJS ONLY Routine 09/07/2024 1:50 PM [employer] RO[employer] SUPERVISOR POCT GLUCOSE - VALLE[employer] DOCKED DEVICE Routine 09/07/2024 11:36 AM [employer] RO[employer] SUPERVISOR POCT GLUCOSE - VALLECILL[employer] DOCKED DEVICE Routine 09/07/2024 8:15 AM [employer] RO[employer] SUPERVISOR POCT ACUTE VENOUS PANEL Routine 09/07/2024 3:47 AM [employer] RO[employer] SUPERVISOR PROTHROMBIN TIME, VENOUS Routine 09/07/2024 3:42 AM [employer] RO[employer] SUPERVISOR COMPREHENSIVE METABOLIC PANEL Routine 09/07/2024 3:42 AM [employer] RO[employer] SUPERVISOR CBC W/DIFF AUTOMATED Routine 09/07/2024 3:42 AM [employer] ROOM SUPERVISOR PHOSPHORUS, INORGANIC PHOSPHATE Routine 09/07/2024 3:42 AM [employer] ROOM SUPERVISOR MAGNESIUM Routine 09/07/2024 3:42 AM [employer] ROOM SUPERVISOR POCT GLUCOSE - VALLECILL[employer] DOCKED DEVICE Routine 09/06/2024 11:44 PM [employer] ROOM SUPERVISOR POCT GLUCOSE - VALLECILL[employer] DOCKED DEVICE Routine 09/06/2024 8:47 PM [employer] ROOM SUPERVISOR BASIC METABOLIC PANEL TIMED 09/06/2024 8:30 PM [employer] ROOM SUPERVISOR POCT GLUCOSE - VALLECILL[employer] DOCKED DEVICE Routine 09/06/2024 4:52 PM [employer] ROOM SUPERVISOR POCT GLUCOSE - VALLECILLO DOCKED DEVICE Routine 09/06/2024 3:54 PM [employer] ROOM SUPERVISOR BASIC METABOLIC PANEL TIMED 09/06/2024 12:49 PM [employer] RO[employer] SUPERVISOR VANCOMYCIN TIMED 09/06/2024 12:49 PM [employer] ROOM SUPERVISOR POCT GLUCOSE - VALLECILL[employer] DOCKED DEVICE Routine 09/06/2024 11:35 AM [employer] ROOM SUPERVISOR POCT GLUCOSE - VALLECILL[employer] DOCKED DEVICE Routine 09/06/2024 8:59 AM [employer] ROOM SUPERVISOR PROTHROMBIN TIME, VENOUS STAT 09/06/2024 8:30 AM WAX ROOM SUPERVISOR XR CHEST PORTABLE Routine 09/06/2024 5:2 1 AM [employer] RO[employer] SUPERVISOR POCT ACUTE VENOUS PANEL Routine 09/06/2024 4:41 AM [employer] ROOM SUPERVISOR POCT GLUCOSE - VALLECILLO DOCKED DEVICE Routine 09/06/2024 4:37 AM [employer] RO[employer] SUPERVISOR COMPREHENSIVE METABOLIC PANEL Routine 09/06/2024 4:30 AM W[employer] ROOM SUPERVISOR CBC W/DIFF AUTOMATED Routine 09/06/2024 4:30 AM W[employer] ROOM SUPERVISOR PHOSPHORUS, INORGANIC PHOSPHATE Routine 09/06/2024 4:30 AM WAX ROOM SUPERVISOR MAGNESIUM Routine 09/06/2024 4:30 AM [employer] ROOM SUPERVISOR POCT GLUCOSE - VALLECILLO DOCKED DEVICE Routine 09/06/2024 12:20 AM WAX ROOM SUPERVISOR POCT GLUCOSE - VALLECILLO DOCKED DEVICE Routine 09/05/2024 8:08 PM W[employer] ROOM SUPERVISOR BASIC METABOLIC PANEL TIMED 09/05/2024 8:00 PM [employer] ROOM SUPERVISOR POCT GLUCOSE - VALLECILLO DOCKED DEVICE Routine 09/05/2024 5:05 PM [employer] ROOM SUPERVISOR POCT ACUTE VENOUS PANEL Routine 09/05/2024 11:17 AM [employer] ROOM SUPERVISOR POCT GLUCOSE - VALLECILLO DOCKED DEVICE Routine 09/05/2024 11:15 AM W[employer] ROOM SUPERVISOR BASIC METABOLIC PANEL TIMED 09/05/2024 11:10 AM [employer] ROOM SUPERVISOR VANCOMYCIN TIMED 09/05/2024 11:10 AM W[employer] ROOM SUPERVISOR PROTHROMBIN TIME, VENOUS STAT 09/05/2024 8:50 AM [employer] ROOM SUPERVISOR POCT GLUCOSE - VALLECILL[employer] DOCKED DEVICE Routine 09/05/2024 8:32 AM [employer]AX ROOM SUPERVISOR CULTURE RESPIRATORY W/ GRAM STAIN Nurse Collected Priority 09/05/2024 7:40 AM WAX ROOM SUPERVISOR XR CHEST PORTABLE Routine 09/05/2024 4:5 8 AM [employer] RO[employer] SUPERVISOR POCT ACUTE VENOUS PANEL Routine 09/05/2024 4:12 AM [employer] ROOM SUPERVISOR POCT GLUCOSE - VALLECILL[employer] DOCKED DEVICE Routine 09/05/2024 4:11 AM [employer] ROOM SUPERVISOR COMPREHENSIVE METABOLIC PANEL Routine 09/05/2024 4:00 AM W[employer] ROOM SUPERVISOR CBC W/DIFF AUTOMATED Routine 09/05/2024 4:00 AM WAX ROOM SUPERVISOR PHOSPHORUS, INORGANIC PHOSPHATE Routine 09/05/2024 4:00 AM W[employer] ROOM SUPERVISOR MAGNESIUM Routine 09/05/2024 4:00 AM [employer] ROOM SUPERVISOR POCT GLUCOSE - VALLECILLO DOCKED DEVICE Routine 09/04/2024 11:40 PM [employer] ROOM SUPERVISOR POCT GLUCOSE - VALLECILLO DOCKED DEVICE Routine 09/04/2024 7:52 PM [employer] ROOM SUPERVISOR POCT GLUCOSE - VALLECILLO DOCKED DEVICE Routine 09/04/2024 3:43 PM WAX ROOM SUPERVISOR XR CHEST PORTABLE STAT 09/04/2024 11:21 AM [employer] ROOM SUPERVISOR POCT GLUCOSE - VALLECILL[employer] DOCKED DEVICE Routine 09/04/2024 11:20 AM WAX ROOM SUPERVISOR USV VAST TEAM PICC INSERT >5YR Today 09/04/2024 11:10 AM WAX ROOM SUPERVISOR USV MARIA ALEJANDRA DUPLEX LOW EXT ELZA RACHELE 09/04/2024 9:03 AM WAX ROOM SUPERVISOR TROPONIN, QUANT TIMED 09/04/2024 8:00 AM WAX ROOM SUPERVISOR HEPARIN, ANTI XA, UFH TIMED 09/04/2024 6:17 AM [employer] ROOM SUPERVISOR POCT GLUCOSE - VALLECILL[employer] DOCKED DEVICE Routine 09/04/2024 6:13 AM WAX ROOM SUPERVISOR XR CHEST PORTABLE Routine 09/04/2024 5:3 5 AM [employer] ROOM SUPERVISOR POCT ACUTE VENOUS PANEL Routine 09/04/2024 4:18 AM [employer] ROOM SUPERVISOR HEPARIN, ANTI XA, UFH TIMED 09/04/2024 4:15 AM WAX ROOM SUPERVISOR PROTHROMBIN TIME, VENOUS Routine 09/04/2024 4:15 AM [employer] ROOM SUPERVISOR COMPREHENSIVE METABOLIC PANEL Routine 09/04/2024 4:15 AM WAX ROOM SUPERVISOR CBC W/DIFF AUTOMATED Routine 09/04/2024 4:15 AM WAX ROOM SUPERVISOR TROPONIN, QUANT Routine 09/04/2024 4:15 AM WAX ROOM SUPERVISOR PHOSPHORUS, INORGANIC PHOSPHATE Routine 09/04/2024 4:15 AM WAX ROOM SUPERVISOR MAGNESIUM Routine 09/04/2024 4:15 AM WAX ROOM SUPERVISOR POCT GLUCOSE - VALLECILLO DOCKED DEVICE Routine 09/04/2024 12:08 AM WAX ROOM SUPERVISOR XR CHEST PORTABLE STAT 09/03/2024 9:2 5 PM [employer] ROOM SUPERVISOR POCT GLUCOSE - VALLECILLO DOCKED DEVICE Routine 09/03/2024 9:23 PM WAX ROOM SUPERVISOR INTUBATION Routine 09/03/2024 9:08 PM WAX ROOM SUPERVISOR PRO-BRAIN NATRIURETIC PEPTIDE STAT 09/03/2024 8:29 PM WAX ROOM SUPERVISOR COMPREHENSIVE METABOLIC PANEL STAT 09/03/2024 8:29 PM WAX ROOM SUPERVISOR LACTIC ACID STAT 09/03/2024 8:29 PM WAX ROOM SUPERVISOR BLOOD GAS, ARTERIAL LAB Routine 09/03/2024 8:29 PM WAX ROOM SUPERVISOR CBC W/DIFF AUTOMATED STAT 09/03/2024 8:29 PM WAX ROOM SUPERVISOR TROPONIN, QUANT TIMED 09/03/2024 8:29 PM WAX ROOM SUPERVISOR PHOSPHORUS, INORGANIC PHOSPHATE Routine 09/03/2024 8:29 PM WAX ROOM SUPERVISOR MAGNESIUM STAT 09/03/2024 8:29 PM WAX ROOM SUPERVISOR POCT ACUTE ARTERIAL PANEL Routine 09/03/2024 8:28 PM WAX ROOM SUPERVISOR XR CHEST PORTABLE STAT 09/03/2024 8:2 2 PM WAX ROOM SUPERVISOR ECG 12-LEAD STAT 09/03/2024 8:13 PM [employer]AX ROOM SUPERVISOR POCT GLUCOSE - VALLECILLO DOCKED DEVICE Routine 09/03/2024 8:04 PM WAX ROOM SUPERVISOR POCT GLUCOSE - VALLECILLO DOCKED DEVICE Routine 09/03/2024 5:22 PM WAX ROOM SUPERVISOR POCT GLUCOSE - VALLECILLO DOCKED DEVICE Routine 09/03/2024 4:03 PM WAX ROOM SUPERVISOR CULTURE, BACTERIA, BLOOD Routine 09/03/2024 12:23 PM WAX ROOM SUPERVISOR POCT GLUCOSE - VALLECILLO DOCKED DEVICE Routine 09/03/2024 10:55 AM WAX ROOM SUPERVISOR XR CHEST PORTABLE Today 09/03/2024 9:3 5 AM WAX ROOM SUPERVISOR BLOOD GAS, ARTERIAL LAB Routine 09/03/2024 9:09 AM WAX ROOM SUPERVISOR PROTHROMBIN TIME, VENOUS Routine 09/03/2024 5:06 AM WAX ROOM SUPERVISOR COMPREHENSIVE METABOLIC PANEL Routine 09/03/2024 5:06 AM WAX ROOM SUPERVISOR CBC W/DIFF AUTOMATED Routine 09/03/2024 5:06 AM WAX ROOM SUPERVISOR POCT GLUCOSE - VALLECILLO DOCKED DEVICE Routine 09/03/2024 4:44 AM WAX ROOM SUPERVISOR HEPARIN, ANTI XA, UFH STAT 09/03/2024 12:50 AM WAX ROOM SUPERVISOR PROTHROMBIN TIME, VENOUS STAT 09/03/2024 12:50 AM WAX ROOM SUPERVISOR RENAL FUNCTION PANEL Routine 09/02/2024 11:25 PM WAX ROOM SUPERVISOR POCT GLUCOSE - VALLECILLO DOCKED DEVICE Routine 09/02/2024 8:47 PM WAX ROOM SUPERVISOR POCT GLUCOSE - VALLECILLO DOCKED DEVICE Routine 09/02/2024 4:07 PM WAX ROOM SUPERVISOR POCT GLUCOSE - VALLECILLO DOCKED DEVICE Routine 09/02/2024 11:56 AM WAX ROOM SUPERVISOR PROTHROMBIN TIME, VENOUS Routine 09/02/2024 7:41 AM WAX ROOM SUPERVISOR COMPREHENSIVE METABOLIC PANEL Routine 09/02/2024 7:41 AM WAX ROOM SUPERVISOR CBC W/DIFF AUTOMATED Routine 09/02/2024 7:41 AM WAX ROOM SUPERVISOR POCT GLUCOSE - VALLECILLO DOCKED DEVICE Routine 09/02/2024 6:26 AM WAX ROOM SUPERVISOR POCT GLUCOSE - VALLECILLO DOCKED DEVICE Routine 09/02/2024 12:59 AM WAX ROOM SUPERVISOR RENAL FUNCTION PANEL Routine 09/02/2024 12:30 AM WAX ROOM SUPERVISOR POCT GLUCOSE - VALLECILLO DOCKED DEVICE Routine 09/01/2024 9:07 PM WAX ROOM SUPERVISOR POCT GLUCOSE - VALLECILLO DOCKED DEVICE Routine 09/01/2024 4:14 PM WAX ROOM SUPERVISOR POCT GLUCOSE - VALLECILLO DOCKED DEVICE Routine 09/01/2024 11:42 AM WAX ROOM SUPERVISOR URINE BACTERIA CULTURE Nurse Collected Priority 09/01/2024 11:10 AM WAX ROOM SUPERVISOR XR SPEECH SWALLOW SJS ONLY Routine 09/01/2024 9:59 AM WAX ROOM SUPERVISOR ANCA VASCULITIS PANEL Routine 09/01/2024 8:19 AM WAX ROOM SUPERVISOR ANTI-GBM Routine 09/01/2024 8:19 AM WAX ROOM SUPERVISOR HEMOGLOBIN, GLYCOSYLATED Routine 09/01/2024 8:19 AM WAX ROOM SUPERVISOR PROTHROMBIN TIME, VENOUS Routine 09/01/2024 8:19 AM WAX ROOM SUPERVISOR COMPREHENSIVE METABOLIC PANEL Routine 09/01/2024 8:19 AM WAX ROOM SUPERVISOR CBC W/DIFF AUTOMATED Routine 09/01/2024 8:19 AM WAX ROOM SUPERVISOR THYROID STIM HORMONE TSH Routine 09/01/2024 8:19 AM WAX ROOM SUPERVISOR MAGNESIUM Routine 09/01/2024 8:19 AM WAX ROOM SUPERVISOR POCT GLUCOSE - VALLECILLO DOCKED DEVICE Routine 09/01/2024 6:41 AM WAX ROOM SUPERVISOR POCT GLUCOSE - VALLECILLO DOCKED DEVICE Routine 09/01/2024 12:55 AM WAX ROOM SUPERVISOR US RETROPERITONEAL LTD Today 10:20 PM WAX ROOM SUPERVISOR POCT GLUCOSE - VALLECILLO DOCKED DEVICE Routine 08/31/2024 6:34 PM WAX ROOM SUPERVISOR SODIUM URINE RANDOM Nurse Collected Priority 08/31/2024 5:12 PM WAX ROOM SUPERVISOR CREATININE URINE RANDOM Nurse Collected Priority 08/31/2024 5:12 PM WAX ROOM SUPERVISOR HC URINALYSIS AUTO W/MICRO Nurse Collected Priority 08/31/2024 5:12 PM WAX ROOM SUPERVISOR USE ECHOCARDIOGRAM W CON Today 08/31/2024 2:02 PM WAX ROOM SUPERVISOR POCT GLUCOSE - VALLECILLO DOCKED DEVICE Routine 08/31/2024 1:02 PM WAX ROOM SUPERVISOR ECG 12-LEAD Routine 08/31/2024 12:13 PM WAX ROOM SUPERVISOR PRO-BRAIN NATRIURETIC PEPTIDE Routine 08/31/2024 10:35 AM WAX ROOM SUPERVISOR PROTHROMBIN TIME, VENOUS Routine 08/31/2024 10:35 AM WAX ROOM SUPERVISOR COMPREHENSIVE METABOLIC PANEL STAT 08/31/2024 10:35 AM WAX ROOM SUPERVISOR CBC W/DIFF AUTOMATED STAT 08/31/2024 10:35 AM WAX ROOM SUPERVISOR CK (CPK) Routine 08/31/2024 10:35 AM WAX ROOM SUPERVISOR CULTURE, BACTERIA, BLOOD Routine 08/31/2024 10:34 AM WAX ROOM SUPERVISOR XR CHEST PORTABLE Today 08/31/2024 10:16 AM WAX ROOM SUPERVISOR POCT GLUCOSE - VALLECILLO DOCKED DEVICE Routine 08/31/2024 8:56 AM WAX ROOM SUPERVISOR documented in this encounter Results * (ABNORMAL) POCT glucose (09/21/2024 6:26 AM WAX ROOM SUPERVISOR) Pathologist [facility] GLUCOSE POC 123(H) 70 - 109 09/21/2024 6:31 AM WAX ROOM SUPERVISOR [facility] 09/21/2024 6:26 AM WAX ROOM SUPERVISOR us Danika Salcedo MD POCT ORDERABLES - DEVICE Final Result Performing Organization Address [facility] Co de Phone Number [facility] [address] [place] [address], [id number] * MAGNESIUM (09/21/2024 5:45 AM WAX ROOM SUPERVISOR) Pathologist [facility] MAGNESIUM 2.4 1.6 - 2.6 MG/DL 09/21/2024 6:45 AM [facility] 09/21/2024 5:45 AM WAX ROOM SUPERVISOR us Danika Salcedo MD LABORATORY Final Res ult Performing Organization Address [facility] de Phone Number [facility] [address] [place] [address], [phone] * (ABNORMAL) BASIC METABOLIC PANEL (09/21/2024 5:45 AM WAX ROOM SUPERVISOR) Pathologist [facility] SODIUM S/P/B 137 136 - 145 MMOL/L 09/21/2024 6:45 AM [facility] POTASSIUM S/P/B 4.3 3.5 - 5.1 MMOL/L 09/21/2024 6:45 AM [facility] CHLORIDE S/P/B 101 97 - 115 MMOL/L 09/21/2024 6:45 AM [facility] CO2 32.6(H) 21.0 - 32.0 MMOL/L 09/21/2024 6:45 AM [facility] GLUCOSE 129(H) 74 - 106 MG/DL 09/21/2024 6:45 AM [facility] BUN 30(H) 7 - 18 MG/DL 09/21/2024 6:45 AM [employer] RO[employer] SUPERVISOR [facility] CREATININE S/P/B 1.24 0.70 - 1.30 MG/DL 09/21/2024 6:45 AM [employer] ROOM SUPERVISOR [facility] CALCIUM S/P/B 9.0 8.5 - 10.1 MG/DL 09/21/2024 6:45 AM [employer] ROOM SUPERVISOR [facility] ANION GAP 3.4 2.0 - 10.0 MMOL/L 09/21/2024 6:45 AM W[employer] ROOM SUPERVISOR [facility] OSMOLALITY (CALC) 292 MOSM/KG 025 6:45 AM [facility] Comment:REFERENCE RANGE NOT ESTABLISHED GFR ESTIMATE 63(L) >90 ML/MIN/1. 73 M2 09/21/2024 6:45 AM [employer] ROOM SUPERVISOR [facility] GFR NOTES GFR REFERENCE S: 09/21/2024 6:45 AM W[employer] ROOM SUPERVISOR [facility] Comment: THE ESTIMATED GFR IS CALCULATED [...] FAILURE: <15 ml/min/1.73 m2 09/21/2024 5:45 AM W[employer] ROOM SUPERVISOR us Danika Salcedo MD LABORATORY Final Res ult [facility] [address] [place] [address], [phone] * (ABNORMAL) PROTIME/INR, VENOUS (PROTHROMBIN TIME) (09/21/2024 3:33 AM WAX ROOM SUPERVISOR) PROTIME 21.4(H) 9.4 - 12.5 SEC 09/21/2024 4:02 AM [employer] ROOM SUPERVISOR [facility] INR 1.8(H) 0.8 - 1.1 09/21/2024 4:02 AM [employer] ROOM SUPERVISOR [facility] 09/21/2024 3:33 AM WAX RO[employer] SUPERVISOR us Kelly Wilson MD LABORATORY Final Result Performing Organization Address [facility]/ZIP Co de Phone Number [facility] [address] [place] [address], [place] [phone] * POCT glucose (09/20/2024 9:57 PM WAX ROOM SUPERVISOR) GLUCOSE POC 106 70 - 109 09/20/2024 10:20 PM [employer] ROOM SUPERVISOR [facility] 09/20/2024 9:57 PM WAX ROOM SUPERVISOR us Danika Salcedo MD POCT ORDERABLES - DEVICE Final Result Performing Organization Address [facility] Co de Phone Number [facility] [address] [place] [address], [place] [phone] * (ABNORMAL) POCT glucose (09/20/2024 3:50 PM WAX ROOM SUPERVISOR) GLUCOSE POC 171(H) 70 - 109 09/20/2024 4:03 PM W[employer] ROOM SUPERVISOR [facility] 09/20/2024 3:50 PM WAX ROOM SUPERVISOR us Danika Salcedo MD POCT ORDERABLES - DEVICE Final Result Performing Organization Address [facility] Co de Phone Number [facility] [address] [place] [address], [phone] * POCT glucose (09/20/2024 11:52 AM WAX ROOM SUPERVISOR) GLUCOSE POC 79 70 - 109 09/20/2024 11:53 AM WAX ROOM SUPERVISOR [facility] 09/20/2024 11:5 2 AM WAX ROOM SUPERVISOR us Danika Salcedo MD POCT ORDERABLES - DEVICE Final Result Performing Organization Address City/[facility]/ZIP Co de Phone Number [facility] [address] [place] [address], [place] [phone] * (ABNORMAL) POCT glucose (09/20/2024 11:26 AM WAX ROOM SUPERVISOR) GLUCOSE POC 36(L) 70 - 109 09/20/2024 11:42 AM WAX ROOM SUPERVISOR [facility] 09/20/2024 11:2 6 AM WAX ROOM SUPERVISOR us Danika Salcedo MD POCT ORDERABLES - DEVICE Final Result Performing Organization Address [facility] Co de Phone Number [facility] [address] [place] [address], [place] [phone] * (ABNORMAL) POCT glucose (09/20/2024 10:55 AM WAX ROOM SUPERVISOR) GLUCOSE POC 63(L) 70 - 109 09/20/2024 11:21 AM WAX ROOM SUPERVISOR [facility] 09/20/2024 10:5 5 AM WAX ROOM SUPERVISOR us Danika Salcedo MD POCT ORDERABLES - DEVICE Final Result Performing Organization Address City/[facility] Co de Phone Number [facility] [address] [place] [address], [place] [phone] * POCT glucose (09/20/2024 6:33 AM WAX ROOM SUPERVISOR) GLUCOSE POC 86 70 - 109 09/20/2024 6:35 AM WAX ROOM SUPERVISOR [facility] 09/20/2024 6:33 AM WAX ROOM SUPERVISOR Danika Salcedo MD POCT ORDERABLES - DEVICE Final Result Performing Organization Address [facility] Co de Phone Number [facility] [address] [place] [address], [phone] * (ABNORMAL) PROTIME/INR, VENOUS (PROTHROMBIN TIME) (09/20/2024 3:56 AM WAX ROOM SUPERVISOR) [facility] PROTIME 18.6(H) 9.4 - 12.5 SEC 09/20/2024 5:14 AM [facility] INR 1.6(H) 0.8 - 1.1 09/20/2024 5:14 AM [facility] 09/20/2024 3:56 AM WAX ROOM SUPERVISOR Kelly Wilson MD LABORATORY Final Result Performing Organization Address [facility] Co de Phone Number [facility] [address] [place] [address], [phone] * (ABNORMAL) BASIC METABOLIC PANEL (09/20/2024 3:56 AM WAX ROOM SUPERVISOR) [facility] SODIUM S/P/B 135(L) 136 - 145 MMOL/L 09/20/2024 5:15 AM [facility] POTASSIUM S/P/B 4.2 3.5 - 5.1 MMOL/L 09/20/2024 5:15 AM WAX ROOM SUPERVISOR [facility] CHLORIDE S/P/B 99 97 - 115 MMOL/L 09/20/2024 5:15 AM [facility] CO2 33.1(H) 21.0 - 32.0 MMOL/L 09/20/2024 5:15 AM [facility] GLUCOSE 105 74 - 106 MG/DL 09/20/2024 5:15 AM [facility] BUN 34(H) 7 - 18 MG/DL 09/20/2024 5:15 AM [facility] CREATININE S/P/B 1.26 0.70 - 1.30 MG/DL 09/20/2024 5:15 AM [facility] CALCIUM S/P/B 9.0 8.5 - 10.1 MG/DL 09/20/2024 5:15 AM [facility] ANION GAP 2.9 2.0 - 10.0 MMOL/L 09/20/2024 5:15 AM [facility] OSMOLALITY (CALC) 288 MOSM/KG 025 5:15 AM [facility] Comment:REFERENCE RANGE NOT ESTABLISHED GFR ESTIMATE 61(L) >90 ML/MIN/1. 73 M2 09/20/2024 5:15 AM [facility] GFR NOTES GFR REFERENCE S: 09/20/2024 5:15 AM [facility] Comment: THE ESTIMATED GFR IS [...] ml/min/1.73 m2 G5,KIDNEY FAILURE: <15 ml/min/1.73 m2 09/20/2024 3:56 AM WAX ROOM SUPERVISOR us Ludy Morrell MD LABORATORY Final Result [facility] [address] [place] [address], [phone] * POCT glucose (09/19/2024 8:58 PM WAX ROOM SUPERVISOR) GLUCOSE POC 87 70 - 109 09/20/2024 1:02 AM WAX ROOM SUPERVISOR [facility] 09/19/2024 8:58 PM WAX ROOM SUPERVISOR us Danika Salcedo MD POCT ORDERABLES - DEVICE Final Result Performing Organization Address City/[facility]/ZIP Co de Phone Number [facility] [address] [place] [address], [place] [phone] * POCT glucose (09/19/2024 4:36 PM WAX ROOM SUPERVISOR) GLUCOSE POC 88 70 - 109 09/19/2024 4:41 PM WAX ROOM SUPERVISOR [facility] 09/19/2024 4:36 PM WAX ROOM SUPERVISOR us Danika Salcedo MD POCT ORDERABLES - DEVICE Final Result Performing Organization Address [facility] Co de Phone Number [facility] [address] [place] [address], [place] [phone] * (ABNORMAL) POCT glucose (09/19/2024 4:14 PM WAX ROOM SUPERVISOR) GLUCOSE POC 117(H) 70 - 109 09/20/2024 1:02 AM WAX ROOM SUPERVISOR [facility] 09/19/2024 4:14 PM WAX ROOM SUPERVISOR us Danika Salcedo MD POCT ORDERABLES - DEVICE Final Result Performing Organization Address [facility] Co de Phone Number [facility] [address] [place] [address], [place] [phone] * (ABNORMAL) POCT glucose (09/19/2024 11:30 AM WAX ROOM SUPERVISOR) GLUCOSE POC 147(H) 70 - 109 09/19/2024 11:54 AM WAX ROOM SUPERVISOR [facility] 09/19/2024 11:3 0 AM WAX ROOM SUPERVISOR us Danika Salcedo MD POCT ORDERABLES - DEVICE Final Result Performing Organization Address [facility]/ZIP Co de Phone Number [facility] [address] [place] [address], [id number] * (ABNORMAL) POCT glucose (09/19/2024 5:22 AM WAX ROOM SUPERVISOR) GLUCOSE POC 134(H) 70 - 109 09/19/2024 5:27 AM WAX ROOM SUPERVISOR [facility] 09/19/2024 5:22 AM WAX ROOM SUPERVISOR us Kelly Wilson MD POCT ORDERABLES - DEVICE Final Result Performing Organization Address [facility] Co de Phone Number [facility] [address] [place] [address], [phone] * (ABNORMAL) PROTIME/INR, VENOUS (PROTHROMBIN TIME) (09/19/2024 3:42 AM WAX ROOM SUPERVISOR) PROTIME 17.4(H) 9.4 - 12.5 SEC 09/19/2024 4:45 AM WAX ROOM SUPERVISOR [facility] INR 1.5(H) 0.8 - 1.1 09/19/2024 4:45 AM WAX ROOM SUPERVISOR [facility] 09/19/2024 3:42 AM WAX ROOM SUPERVISOR us Kelly Wilson MD LABORATORY Final Result Performing Organization Address [facility]/ZIP Co de Phone Number [facility] [address] [place] [address], [phone] * (ABNORMAL) POCT glucose (09/18/2024 8:51 PM WAX ROOM SUPERVISOR) GLUCOSE POC 123(H) 70 - 109 09/18/2024 8:53 PM WAX ROOM SUPERVISOR [facility] 09/18/2024 8:51 PM WAX ROOM SUPERVISOR us Kelly Wilson MD POCT ORDERABLES - DEVICE Final Result Performing Organization Address [facility] Co de Phone Number [facility] [address] [place] [address], [place] [phone] * (ABNORMAL) POCT glucose (09/18/2024 4:23 PM WAX ROOM SUPERVISOR) GLUCOSE POC 112(H) 70 - 109 09/18/2024 4:29 PM WAX ROOM SUPERVISOR [facility] 09/18/2024 4:23 PM WAX ROOM SUPERVISOR us Kelly Wilson MD POCT ORDERABLES - DEVICE Final Result Performing Organization Address [facility] de Phone Number [facility] [address] [place] [address], [place] [phone] * POCT glucose (09/18/2024 11:09 AM WAX ROOM SUPERVISOR) GLUCOSE POC 86 70 - 109 09/18/2024 11:20 AM WAX ROOM SUPERVISOR [facility] 09/18/2024 11:0 9 AM WAX ROOM SUPERVISOR us Kelly Wilson MD POCT ORDERABLES - DEVICE Final Result Performing Organization Address [facility] de Phone Number [facility] [address] [place] [address], [place] [phone] * POCT glucose (09/18/2024 6:04 AM WAX ROOM SUPERVISOR) GLUCOSE POC 74 70 - 109 09/18/2024 6:24 AM WAX ROOM SUPERVISOR [facility] Comment:Will Repeat Test 09/18/2024 6:04 AM WAX ROOM SUPERVISOR us Kelly Wilson MD POCT ORDERABLES - DEVICE Final Result Performing Organization Address [facility] de Phone Number [facility] [address] [place] [address], [phone] * (ABNORMAL) PROTIME/INR, VENOUS (PROTHROMBIN TIME) (09/18/2024 3:29 AM WAX ROOM SUPERVISOR) PROTIME 18.2(H) 9.4 - 12.5 SEC 09/18/2024 4:28 AM [facility] INR 1.6(H) 0.8 - 1.1 09/18/2024 4:28 AM [facility] 09/18/2024 3:29 AM WAX ROOM SUPERVISOR us Kelly Wilson MD LABORATORY Final Result Performing Organization Address [facility] de Phone Number [facility] [address] [place] [address], [phone] * (ABNORMAL) RENAL FUNCTION PANEL (09/18/2024 3:29 AM WAX ROOM SUPERVISOR) SODIUM S/P/B 137 136 - 145 MMOL/L 09/18/2024 4:18 AM [facility] POTASSIUM S/P/B 4.3 3.5 - 5.1 MMOL/L 09/18/2024 4:18 AM [facility] CHLORIDE S/P/B 101 97 - 115 MMOL/L 09/18/2024 4:18 AM [facility] CO2 33.4(H) 21.0 - 32.0 MMOL/L 09/18/2024 4:18 AM [facility] GLUCOSE 91 74 - 106 MG/DL 09/18/2024 4:18 AM [facility] BUN 32(H) 7 - 18 MG/DL 09/18/2024 4:18 AM [facility] CREATININE S/P/B 1.23 0.70 - 1.30 MG/DL 09/18/2024 4:18 AM [facility] CALCIUM S/P/B 8.8 8.5 - 10.1 MG/DL 09/18/2024 4:18 AM [facility] ALBUMIN S/P/B 2.7(L) 3.4 - 5.0 G/DL 09/18/2024 4:18 AM [facility] PHOSPHORUS 3.5 2.5 - 4.9 MG/DL 09/18/2024 4:18 AM [facility] ANION GAP 2.6 2.0 - 10.0 MMOL/L 09/18/2024 4:18 AM [facility] OSMOLALITY (CALC) 290 MOSM/KG 025 4:18 AM [facility] Comment:REFERENCE RANGE NOT ESTABLISHED GFR ESTIMATE 63(L) >90 ML/MIN/1. 73 M2 09/18/2024 4:18 AM [facility] GFR NOTES GFR REFERENCE S: 09/18/2024 4:18 AM [facility] Comment: THE ESTIMATED GFR IS [...] FAILURE: <15 ml/min/1.73 m2 09/18/2024 3:29 AM WAX ROOM SUPERVISOR us Ludy Morrell MD LABORATORY Final Result Performing Organization Address [facility] Co de Phone Number [facility] [address] [place] [address], [place] [phone] * (ABNORMAL) POCT glucose (09/17/2024 9:17 PM WAX ROOM SUPERVISOR) GLUCOSE POC 155(H) 70 - 109 09/17/2024 9:19 PM WAX ROOM SUPERVISOR [facility] 09/17/2024 9:17 PM WAX ROOM SUPERVISOR us Kelly Wilson MD POCT ORDERABLES - DEVICE Final Result Performing Organization Address [facility] Co de Phone Number [facility] [address] [place] [address], [phone] * (ABNORMAL) POCT glucose (09/17/2024 4:44 PM WAX ROOM SUPERVISOR) GLUCOSE POC 215(H) 70 - 109 09/17/2024 4:56 PM WAX ROOM SUPERVISOR [facility] 09/17/2024 4:44 PM WAX ROOM SUPERVISOR us Kelly Wilson MD POCT ORDERABLES - DEVICE Final Result Performing Organization Address [facility] Co de Phone Number [facility] [address] [place] [address], [place] [phone] * (ABNORMAL) POCT glucose (09/17/2024 11:06 AM WAX ROOM SUPERVISOR) GLUCOSE POC 135(H) 70 - 109 09/17/2024 11:24 AM WAX ROOM SUPERVISOR [facility] 09/17/2024 11:0 6 AM WAX ROOM SUPERVISOR us Kelly Wilson MD POCT ORDERABLES - DEVICE Final Result Performing Organization Address City/[facility] Co de Phone Number [facility] [address] [place] [address], [phone] * (ABNORMAL) POCT glucose (09/17/2024 6:16 AM WAX ROOM SUPERVISOR) Pathologist [facility] GLUCOSE POC 146(H) 70 - 109 09/17/2024 6:35 AM WAX ROOM SUPERVISOR [facility] 09/17/2024 6:16 AM WAX ROOM SUPERVISOR us Kelly Wilson MD POCT ORDERABLES - DEVICE Final Result Performing Organization Address [facility] Co de Phone Number [facility] [address] [place] [address], [phone] * (ABNORMAL) PROTIME/INR, VENOUS (PROTHROMBIN TIME) (09/17/2024 5:57 AM WAX ROOM SUPERVISOR) [facility] PROTIME 17.3(H) 9.4 - 12.5 SEC 09/17/2024 6:38 AM WAX ROOM SUPERVISOR [facility] INR 1.5(H) 0.8 - 1.1 09/17/2024 6:38 AM WAX ROOM SUPERVISOR [facility] 09/17/2024 5:57 AM WAX ROOM SUPERVISOR us Kelly Wilson MD LABORATORY Final Result Performing Organization Address [facility] Co de Phone Number [facility] [address] [place] [address], [phone] * (ABNORMAL) Blood gas, venous (09/17/2024 3:43 AM WAX ROOM SUPERVISOR) Pathologist [facility] PH VENOUS 7.32 7.32 - 7.42 09/17/2024 3:57 AM WAX ROOM SUPERVISOR [facility] PCO2 VENOUS 67.6(H) 41.0 - 51.0 MMHG 09/17/2024 3:57 AM WAX ROOM SUPERVISOR [facility] PO2 VENOUS 23.3(L) 25.0 - 40.0 MM HG 09/17/2024 3:57 AM WAX ROOM SUPERVISOR [facility] BICARB VENOUS 34.2(H) 24 - 28 MMOL/L 09/17/2024 3:57 AM WAX ROOM SUPERVISOR [facility] TOTAL CO2 VENOUS 36.2(H) 25.0 - 29.0 MMOL/L 09/17/2024 3:57 AM WAX ROOM SUPERVISOR [facility] BASE EXCESS VENOUS 6.7(H) 0 - 2 MMOL/L 09/17/2024 3:57 AM WAX ROOM SUPERVISOR [facility] O2 SAT VENOUS 35 <75 % 09/17/2024 3:57 AM WAX ROOM SUPERVISOR [facility] 09/17/2024 3:43 AM WAX ROOM SUPERVISOR us Keyona Miller MD LABORATORY Fi nal Result Performing Organization Address City/[facility]/ZIP Co de Phone Number [facility] [address] [place] [address], [phone] * PHOSPHORUS, INORGANIC PHOSPHATE (09/17/2024 3:43 AM WAX ROOM SUPERVISOR) PHOSPHORUS 3.3 2.5 - 4.9 MG/DL 09/17/2024 4:16 AM WAX ROOM SUPERVISOR [facility] 09/17/2024 3:43 AM WAX ROOM SUPERVISOR us Keyona Miller MD LABORATORY Fi nal Result Performing Organization Address City/[facility]/ZIP Co de Phone Number [facility] [address] [place] [address], [phone] * MAGNESIUM (09/17/2024 3:43 AM WAX ROOM SUPERVISOR) MAGNESIUM 2.3 1.6 - 2.6 MG/DL 09/17/2024 4:16 AM WAX ROOM SUPERVISOR [facility] 09/17/2024 3:43 AM WAX ROOM SUPERVISOR us Keyona Miller MD LABORATORY Fi nal Result Performing Organization Address [facility]/ZIP Co de Phone Number [facility] [address] [place] [address], [place] [phone] * POCT glucose (09/16/2024 9:35 PM WAX ROOM SUPERVISOR) GLUCOSE POC 102 70 - 109 09/16/2024 9:37 PM WAX ROOM SUPERVISOR [facility] 09/16/2024 9:35 PM WAX ROOM SUPERVISOR us Kelly Wilson MD POCT ORDERABLES - DEVICE Final Result Performing Organization Address [facility] de Phone Number [facility] [address] [place] [address], [phone] * (ABNORMAL) POCT glucose (09/16/2024 3:46 PM WAX ROOM SUPERVISOR) GLUCOSE POC 165(H) 70 - 109 09/16/2024 3:48 PM WAX ROOM SUPERVISOR [facility] 09/16/2024 3:46 PM WAX ROOM SUPERVISOR us Kelly Wilson MD POCT ORDERABLES - DEVICE Final Result Performing Organization Address [facility] Co de Phone Number [facility] [address] [place] [address], [place] [phone] * (ABNORMAL) POCT glucose (09/16/2024 10:53 AM WAX ROOM SUPERVISOR) GLUCOSE POC 134(H) 70 - 109 09/16/2024 10:55 AM WAX ROOM SUPERVISOR [facility] 09/16/2024 10:5 3 AM WAX ROOM SUPERVISOR us Kelly Wilson MD POCT ORDERABLES - DEVICE Final Result Performing Organization Address [facility] de Phone Number [facility] [address] [place] [address], [phone] * POCT glucose (09/16/2024 6:35 AM WAX ROOM SUPERVISOR) Pathologist [facility] GLUCOSE POC 79 70 - 109 09/16/2024 6:44 AM WAX ROOM SUPERVISOR [facility] 09/16/2024 6:35 AM WAX ROOM SUPERVISOR us Kelly Wilson MD POCT ORDERABLES - DEVICE Final Result Performing Organization Address [facility] de Phone Number [facility] [address] [place] [address], [phone] * (ABNORMAL) PROTIME/INR, VENOUS (PROTHROMBIN TIME) (09/16/2024 4:21 AM WAX ROOM SUPERVISOR) [facility] PROTIME 16.6(H) 9.4 - 12.5 SEC 09/16/2024 5:06 AM WAX ROOM SUPERVISOR [facility] INR 1.4(H) 0.8 - 1.1 09/16/2024 5:06 AM WAX ROOM SUPERVISOR [facility] 09/16/2024 4:21 AM WAX ROOM SUPERVISOR us Kelly Wilson MD LABORATORY Final Result Performing Organization Address [facility] de Phone Number [facility] [address] [place] [address], [phone] * (ABNORMAL) Blood gas, venous (09/16/2024 4:21 AM WAX ROOM SUPERVISOR) PH VENOUS 7.34 7.32 - 7.42 09/16/2024 4:34 AM WAX ROOM SUPERVISOR [facility] PCO2 VENOUS 66.0(H) 41.0 - 51.0 MMHG 09/16/2024 4:34 AM [facility] PO2 VENOUS 23.5(L) 25.0 - 40.0 MM HG 09/16/2024 4:34 AM [facility] BICARB VENOUS 34.6(H) 24 - 28 MMOL/L 09/16/2024 4:34 AM [facility] TOTAL CO2 VENOUS 36.6(H) 25.0 - 29.0 MMOL/L 09/16/2024 4:34 AM [facility] BASE EXCESS VENOUS 7.3(H) 0 - 2 MMOL/L 09/16/2024 4:34 AM [facility] O2 SAT VENOUS 33 <75 % 09/16/2024 4:34 AM [facility] 09/16/2024 4:21 AM WAX ROOM SUPERVISOR us Keyona Miller MD LABORATORY Fi nal Result Performing Organization Address City/[facility]/ZIP Co de Phone Number [facility] [address] [place] [address], [phone] * PHOSPHORUS, INORGANIC PHOSPHATE (09/16/2024 4:21 AM WAX ROOM SUPERVISOR) PHOSPHORUS 3.4 2.5 - 4.9 MG/DL 09/16/2024 5:00 AM [facility] 09/16/2024 4:21 AM WAX ROOM SUPERVISOR us Keyona Miller MD LABORATORY Fi nal Result [facility] [address] [place] [address], [phone] * MAGNESIUM (09/16/2024 4:21 AM WAX ROOM SUPERVISOR) MAGNESIUM 2.4 1.6 - 2.6 MG/DL 09/16/2024 5:00 AM WAX ROOM SUPERVISOR [facility] 09/16/2024 4:21 AM WAX ROOM SUPERVISOR us Keyona Miller MD LABORATORY Fi nal Result Performing Organization Address [facility] Co de Phone Number [facility] [address] [place] [address], [place] [phone] * (ABNORMAL) POCT glucose (09/15/2024 9:22 PM WAX ROOM SUPERVISOR) GLUCOSE POC 178(H) 70 - 109 09/15/2024 10:08 PM WAX ROOM SUPERVISOR [facility] 09/15/2024 9:22 PM WAX ROOM SUPERVISOR us Kelly Wilson MD POCT ORDERABLES - DEVICE Final Result Performing Organization Address [facility] de Phone Number [facility] [address] [place] [address], [phone] * (ABNORMAL) POCT glucose (09/15/2024 4:46 PM WAX ROOM SUPERVISOR) GLUCOSE POC 264(H) 70 - 109 09/15/2024 4:51 PM WAX ROOM SUPERVISOR [facility] 09/15/2024 4:46 PM WAX ROOM SUPERVISOR us Kelly Wilson MD POCT ORDERABLES - DEVICE Final Result Performing Organization Address [facility] Co de Phone Number [facility] [address] [place] [address], [place] [phone] * (ABNORMAL) POCT glucose (09/15/2024 10:45 AM WAX ROOM SUPERVISOR) GLUCOSE POC 124(H) 70 - 109 09/15/2024 10:47 AM WAX ROOM SUPERVISOR [facility] 09/15/2024 10:4 5 AM WAX ROOM SUPERVISOR us Kelly Wilson MD POCT ORDERABLES - DEVICE Final Result Performing Organization Address [facility] Co de Phone Number [facility] [address] [place] [address], [place] [phone] * Bedside spirometry (09/15/2024 9:45 AM WAX ROOM SUPERVISOR) 09/15/2024 9:45 AM WAX ROOM SUPERVISOR Lakhwinder Magno Howard MARINE [employer]AMM[employer] TRAIN[employer] PFT ORDERABLES Final Result Performing Organization Address [facility] Co de Phone Number [address] * (ABNORMAL) POCT glucose (09/15/2024 8:22 AM WAX ROOM SUPERVISOR) GLUCOSE POC 128(H) 70 - 109 09/15/2024 8:23 AM WAX ROOM SUPERVISOR [facility] 09/15/2024 8:22 AM WAX ROOM SUPERVISOR us Kelly Wilson MD POCT ORDERABLES - DEVICE Final Result Performing Organization Address [facility] Co de Phone Number [facility] [address] [place] [address], [phone] * (ABNORMAL) POCT glucose (09/15/2024 7:20 AM WAX ROOM SUPERVISOR) GLUCOSE POC 134(H) 70 - 109 09/15/2024 9:09 PM WAX ROOM SUPERVISOR [facility] 09/15/2024 7:20 AM WAX ROOM SUPERVISOR us Kelly Wilson MD POCT ORDERABLES - DEVICE Final Result Performing Organization Address [facility] Co de Phone Number [facility] [address] [place] [address], [place] [phone] * (ABNORMAL) POCT glucose (09/15/2024 6:50 AM WAX ROOM SUPERVISOR) GLUCOSE POC 34(L) 70 - 109 09/15/2024 9:09 PM WAX ROOM SUPERVISOR [facility] Comment:Will Repeat Test 09/15/2024 6:50 AM WAX ROOM SUPERVISOR us Kelly Wilson MD POCT ORDERABLES - DEVICE Final Result Performing Organization Address [facility] Co de Phone Number [facility] [address] [place] [address], [place] [phone] * (ABNORMAL) POCT glucose (09/15/2024 6:17 AM WAX ROOM SUPERVISOR) GLUCOSE POC 57(L) 70 - 109 09/15/2024 6:26 AM WAX ROOM SUPERVISOR [facility] 09/15/2024 6:17 AM WAX ROOM SUPERVISOR us Kelly Wilson MD POCT ORDERABLES - DEVICE Final Result Performing Organization Address [facility] Co de Phone Number [facility] [address] [place] [address], [place] [phone] * (ABNORMAL) PROTIME/INR, VENOUS (PROTHROMBIN TIME) (09/15/2024 5:04 AM WAX ROOM SUPERVISOR) PROTIME 16.2(H) 9.4 - 12.5 SEC 09/15/2024 6:18 AM WAX ROOM SUPERVISOR [facility] INR 1.4(H) 0.8 - 1.1 09/15/2024 6:18 AM WAX ROOM SUPERVISOR [facility] 09/15/2024 5:04 AM WAX ROOM SUPERVISOR us Kelly Wilson MD LABORATORY Final Result Performing Organization Address [facility] Co de Phone Number [facility] [address] [place] [address], [place] [phone] * (ABNORMAL) Blood gas, venous (09/15/2024 5:04 AM WAX ROOM SUPERVISOR) PH VENOUS 7.38 7.32 - 7.42 09/15/2024 5:54 AM WAX ROOM SUPERVISOR [facility] PCO2 VENOUS 57.3(H) 41.0 - 51.0 [facility] 09/15/2024 5:54 AM [facility] [facility] PO2 VENOUS 24.4(L) 25.0 - 40.0 MM HG 09/15/2024 5:54 AM WAX ROOM SUPERVISOR [facility] BICARB VENOUS 32.8(H) 24 - 28 MMOL/L 09/15/2024 5:54 AM [facility] TOTAL CO2 VENOUS 34.6(H) 25.0 - 29.0 MMOL/L 09/15/2024 5:54 AM [facility] BASE EXCESS VENOUS 6.6(H) 0 - 2 MMOL/L 09/15/2024 5:54 AM [facility] O2 SAT VENOUS 40 <75 % 09/15/2024 5:54 AM WAX ROOM SUPERVISOR [facility] 09/15/2024 5:04 AM WAX ROOM SUPERVISOR us Keyona Miller MD LABORATORY Fi nal Result Performing Organization Address [facility] Co de Phone Number [facility] [address] [place] [address], [id number] * PHOSPHORUS, INORGANIC PHOSPHATE (09/15/2024 5:04 AM WAX ROOM SUPERVISOR) PHOSPHORUS 2.9 2.5 - 4.9 MG/DL 09/15/2024 6:43 AM WAX ROOM SUPERVISOR [facility] 09/15/2024 5:04 AM WAX ROOM SUPERVISOR us Keyona Miller MD LABORATORY Fi nal Result Performing Organization Address City/[facility] Co de Phone Number [facility] [address] [place] [address], [id number] * MAGNESIUM (09/15/2024 5:04 AM WAX ROOM SUPERVISOR) Pathologist [facility] MAGNESIUM 2.4 1.6 - 2.6 MG/DL 09/15/2024 6:43 AM WAX ROOM SUPERVISOR [facility] 09/15/2024 5:04 AM WAX ROOM SUPERVISOR Keyona Miller MD LABORATORY Fi nal Result [facility] [address] [place] [address], [id number] * (ABNORMAL) CBC, AUTO, NO DIFF (09/15/2024 5:04 AM WAX ROOM SUPERVISOR) Pathologist [facility] WBC 11.65(H) 4.00 - 10.80 x10'3/uL 09/15/2024 5:59 AM [facility] RBC 3.90(L) 4.50 - 6.10 x10'6/uL 09/15/2024 5:59 AM [facility] HGB 11.2(L) 12.0 - 16.0 G/DL 09/15/2024 5:59 AM [facility] HCT 37.1 37.0 - 52.0 % 09/15/2024 5:59 AM [facility] MCV 95.1 78.0 - 100.0 FL 09/15/2024 5:59 AM [facility] MCH 28.7 27.0 - 31.0 PG 09/15/2024 5:59 AM [facility] MCHC 30.2(L) 33.0 - 36.0 G/DL 09/15/2024 5:59 AM [facility] RDW 15.6(H) 11.5 - 14.5 % 09/15/2024 5:59 AM [facility] PLT 133(L) 150 - 350 x10'3/uL 09/15/2024 5:59 AM [facility] MPV 13.9(H) 7.4 - 10.4 FL 09/15/2024 5:59 AM [facility] 09/15/2024 5:04 AM WAX ROOM SUPERVISOR Kelly Wilson MD LABORATORY Final Result [facility] [address] [place] [address], [id number] * (ABNORMAL) BASIC METABOLIC PANEL (09/15/2024 5:04 AM [facility]) SODIUM S/P/B 139 136 - 145 MMOL/L 09/15/2024 6:43 AM [facility] POTASSIUM S/P/B 4.0 3.5 - 5.1 MMOL/L 09/15/2024 6:43 AM [facility] CHLORIDE S/P/B 104 97 - 115 MMOL/L 09/15/2024 6:43 AM [facility] CO2 32.9(H) 21.0 - 32.0 MMOL/L 09/15/2024 6:43 AM [facility] GLUCOSE 55(L) 74 - 106 MG/DL 09/15/2024 6:43 AM [facility] BUN 44(H) 7 - 18 MG/DL 09/15/2024 6:43 AM [facility] CREATININE S/P/B 1.24 0.70 - 1.30 MG/DL 09/15/2024 6:43 AM [facility] CALCIUM S/P/B 8.5 8.5 - 10.1 MG/DL 09/15/2024 6:43 AM [facility] ANION GAP 2.1 2.0 - 10.0 MMOL/L 09/15/2024 6:43 AM WAX ROOM SUPERVISOR [facility] OSMOLALITY (CALC) 297 MOSM/KG 025 6:43 AM WAX ROOM SUPERVISOR [facility] Comment:REFERENCE RANGE NOT ESTABLISHED GFR ESTIMATE 63(L) >90 ML/MIN/1. 73 M2 09/15/2024 6:43 AM WAX ROOM SUPERVISOR [facility] GFR NOTES GFR REFERENCE S: 09/15/2024 6:43 AM WAX ROOM SUPERVISOR [facility] Comment: THE ESTIMATED GFR IS CALCULATED [...] ml/min/1.73 m2 G5,KIDNEY FAILURE: <15 ml/min/1.73 m2 09/15/2024 5:04 AM WAX ROOM SUPERVISOR us Kelly Wilson MD LABORATORY Final Result Performing Organization Address [facility] Co de Phone Number [facility] [address] [place] [address], [id number] * (ABNORMAL) POCT glucose (09/14/2024 8:48 PM WAX ROOM SUPERVISOR) Pathologist [facility] GLUCOSE POC 210(H) 70 - 109 09/14/2024 8:53 PM WAX ROOM SUPERVISOR [facility] 09/14/2024 8:48 PM WAX ROOM SUPERVISOR us Kelly Wilson MD POCT ORDERABLES - DEVICE Final Result Performing Organization Address [facility] Co de Phone Number [facility] [address] [place] [address], [phone] * (ABNORMAL) POCT glucose (09/14/2024 5:23 PM WAX ROOM SUPERVISOR) GLUCOSE POC 251(H) 70 - 109 09/14/2024 5:26 PM WAX ROOM SUPERVISOR [facility] 09/14/2024 5:23 PM WAX ROOM SUPERVISOR us Kelly Wilson MD POCT ORDERABLES - DEVICE Final Result [facility] [address] [place] [address], [place] [phone] * (ABNORMAL) POCT glucose (09/14/2024 11:09 AM WAX ROOM SUPERVISOR) GLUCOSE POC 121(H) 70 - 109 09/14/2024 11:14 AM WAX ROOM SUPERVISOR [facility] 09/14/2024 11:0 9 AM WAX ROOM SUPERVISOR us Kelyl Wilson MD POCT ORDERABLES - DEVICE Final Result Performing Organization Address [facility] Co de Phone Number [facility] [address] [place] [address], [place] [phone] * (ABNORMAL) PROTIME/INR, VENOUS (PROTHROMBIN TIME) (09/14/2024 9:49 AM WAX ROOM SUPERVISOR) PROTIME 15.0(H) 9.4 - 12.5 SEC 09/14/2024 10:37 AM WAX ROOM SUPERVISOR [facility] INR 1.3(H) 0.8 - 1.1 09/14/2024 10:37 AM WAX ROOM SUPERVISOR [facility] 09/14/2024 9:49 AM WAX ROOM SUPERVISOR us Kelly Wilson MD LABORATORY Final Result Performing Organization Address City/[facility]/ZIP Co de Phone Number [facility] [address] [place] [address], [place] [phone] * (ABNORMAL) POCT glucose (09/14/2024 5:33 AM WAX ROOM SUPERVISOR) GLUCOSE POC 202(H) 70 - 109 09/14/2024 5:40 AM WAX ROOM SUPERVISOR [facility] 09/14/2024 5:33 AM WAX ROOM SUPERVISOR Juanpablo Herman MD POCT ORDERABLES - DEVICE Fin al Result Performing Organization Address [facility] Co de Phone Number [facility] [address] [place] [address], [phone] * (ABNORMAL) Blood gas, venous (09/14/2024 3:48 AM WAX ROOM SUPERVISOR) PH VENOUS 7.34 7.32 - 7.42 09/14/2024 3:54 AM WAX ROOM SUPERVISOR [facility] PCO2 VENOUS 62.0(H) 41.0 - 51.0 MMHG 09/14/2024 3:54 AM WAX ROOM SUPERVISOR [facility] PO2 VENOUS 23.3(L) 25.0 - 40.0 MM HG 09/14/2024 3:54 AM WAX ROOM SUPERVISOR [facility] BICARB VENOUS 32.2(H) 24 - 28 MMOL/L 09/14/2024 3:54 AM WAX ROOM SUPERVISOR [facility] TOTAL CO2 VENOUS 34.1(H) 25.0 - 29.0 MMOL/L 09/14/2024 3:54 AM WAX ROOM SUPERVISOR [facility] BASE EXCESS VENOUS 5.3(H) 0 - 2 MMOL/L 09/14/2024 3:54 AM WAX ROOM SUPERVISOR [facility] O2 SAT VENOUS 38 <75 % 09/14/2024 3:54 AM WAX ROOM SUPERVISOR [facility] 09/14/2024 3:48 AM WAX ROOM SUPERVISOR Keyona Miller MD LABORATORY Fi nal Result [facility] [address] [place] [address], [phone] * (ABNORMAL) PHOSPHORUS, INORGANIC PHOSPHATE (09/14/2024 3:48 AM WAX ROOM SUPERVISOR) PHOSPHORUS 2.4(L) 2.5 - 4.9 MG/DL 09/14/2024 4:32 AM WAX ROOM SUPERVISOR [facility] 09/14/2024 3:48 AM WAX ROOM SUPERVISOR us Keyona Miller MD LABORATORY Fi nal Result Performing Organization Address [facility] de Phone Number [facility] [address] [place] [address], [phone] * (ABNORMAL) MAGNESIUM (09/14/2024 3:48 AM WAX ROOM SUPERVISOR) MAGNESIUM 2.7(H) 1.6 - 2.6 MG/DL 09/14/2024 4:32 AM WAX ROOM SUPERVISOR [facility] 09/14/2024 3:48 AM WAX ROOM SUPERVISOR us Keyona Miller MD LABORATORY Fi nal Result Performing Organization Address [facility] de Phone Number [facility] [address] [place] [address], [phone] * (ABNORMAL) CBC W/DIFF AUTOMATED (09/14/2024 3:48 AM WAX ROOM SUPERVISOR) WBC 14.68(H) 4.00 - 10.80 x10'3/uL 09/14/2024 4:24 AM WAX ROOM SUPERVISOR [facility] RBC 3.77(L) 4.50 - 6.10 x10'6/uL 09/14/2024 4:24 AM WAX ROOM SUPERVISOR [facility] HGB 10.9(L) 12.0 - 16.0 G/DL 09/14/2024 4:24 AM [facility] HCT 35.8(L) 37.0 - 52.0 % 09/14/2024 4:24 AM [facility] MCV 95.0 78.0 - 100.0 FL 09/14/2024 4:24 AM [facility] MCH 28.9 27.0 - 31.0 PG 09/14/2024 4:24 AM [facility] MCHC 30.4(L) 33.0 - 36.0 G/DL 09/14/2024 4:24 AM [facility] RDW 15.3(H) 11.5 - 14.5 % 09/14/2024 4:24 AM [facility] PLT 134(L) 150 - 350 x10'3/uL 09/14/2024 4:24 AM [facility] MPV 14.0(H) 7.4 - 10.4 FL 09/14/2024 4:24 AM [facility] DIFFERENTIAL TYPE AUTOMATED DIFFERENTIAL 09/14/2024 4:25 AM [facility] SEG NEUTROPHILS 83.6 % 4:25 AM [facility] LYMPHOCYTES 6.5 % 09/14/2024 4:25 AM [facility] MONOCYTES 7.6 % 09/14/2024 4:25 AM [facility] EOSINOPHILS 0.3 % 09/14/2024 4:25 AM [facility] BASOPHILS 0.2 % 09/14/2024 4:25 AM [facility] IMMATURE GRANS % 1.8 % 09/14/19 4:25 AM [facility] ABS. NEUTROPHILS 12.26(H) 1.60 - 8.30 x10'3/uL 09/14/2024 4:25 AM [facility] ABS. LYMPHOCYTES 0.96 0.80 - 4.70 x10'3/uL 09/14/2024 4:25 AM WAX ROOM SUPERVISOR [facility] ABS. MONOCYTES 1.12 0.00 - 1.50 x10'3/uL 09/14/2024 4:25 AM WAX ROOM SUPERVISOR [facility] ABS. EOSINOPHILS 0.04 0.00 - 0.40 x10'3/uL 09/14/2024 4:25 AM WAX ROOM SUPERVISOR [facility] ABS. BASOPHILS 0.03 0.00 - 0.20 x10'3/uL 09/14/2024 4:25 AM WAX ROOM SUPERVISOR [facility] ABS. IMMATURE GRANULOCYTES 0.27(H) 0.00 - 0.03 x10'3/uL 09/14/2024 4:25 AM [facility] ABS. NUCLEATED RBC'S 0.00 0.00 - 0.01 x10'3/uL 09/14/2024 4:25 AM [facility] NRBC % 0.0 % 09/14/2024 4:25 AM [facility] 09/14/2024 3:48 AM WAX ROOM SUPERVISOR Juanpablo Herman MD LABORATORY Final Result [facility] [address] [place] [address], [id number] * (ABNORMAL) COMPREHENSIVE METABOLIC PANEL (09/14/2024 3:48 AM WAX ROOM SUPERVISOR) SODIUM S/P/B 137 136 - 145 MMOL/L 09/14/2024 4:32 AM WAX ROOM SUPERVISOR [facility] POTASSIUM S/P/B 4.1 3.5 - 5.1 MMOL/L 09/14/2024 4:32 AM [facility] CHLORIDE S/P/B 101 97 - 115 MMOL/L 09/14/2024 4:32 AM [facility] CO2 31.4 21.0 - 32.0 MMOL/L 09/14/2024 4:32 AM [facility] GLUCOSE 228(H) 74 - 106 MG/DL 09/14/2024 4:32 AM [facility] BUN 46(H) 7 - 18 MG/DL 09/14/2024 4:32 AM [facility] CREATININE S/P/B 1.39(H) 0.70 - 1.30 MG/DL 09/14/2024 4:32 AM [facility] CALCIUM S/P/B 8.6 8.5 - 10.1 MG/DL 09/14/2024 4:32 AM [facility] BILIRUBIN TOTAL S/P/B 0.7 0.2 - 1.0 MG/DL 09/14/2024 4:32 AM [facility] ALKALINE PHOSPHATASE S/P/B 114 45 - 115 U/L 09/14/2024 4:32 AM [facility] AST 18 15 - 37 U/L 09/14/2024 4:32 AM [facility] ALT 31 16 - 61 U/L 09/14/2024 4:32 AM [facility] TOTAL PROTEIN S/P/B 6.9 6.4 - 8.2 G/DL 09/14/2024 4:32 AM [facility] ALBUMIN S/P/B 2.5(L) 3.4 - 5.0 G/DL 09/14/2024 4:32 AM [facility] ANION GAP 4.6 2.0 - 10.0 MMOL/L 09/14/2024 4:32 AM [facility] OSMOLALITY (CALC) 303 MOSM/KG 025 4:32 AM [facility] Comment:REFERENCE RANGE NOT ESTABLISHED GFR ESTIMATE 55(L) >90 ML/MIN/1. 73 M2 09/14/2024 4:32 AM [facility] GFR NOTES GFR REFERENCE S: 09/14/2024 4:32 AM [facility] Comment: THE ESTIMATED GFR IS [...] FAILURE: <15 ml/min/1.73 m2 09/14/2024 3:48 AM WAX ROOM SUPERVISOR us Juanpablo Herman MD LABORATORY Final Result Performing Organization Address [facility] Co de Phone Number [facility] [address] [place] [address], [phone] * (ABNORMAL) POCT glucose (09/13/2024 9:16 PM WAX ROOM SUPERVISOR) GLUCOSE POC 286(H) 70 - 109 09/13/2024 9:29 PM WAX ROOM SUPERVISOR [facility] 09/13/2024 9:16 PM WAX ROOM SUPERVISOR us Juanpablo Herman MD POCT ORDERABLES - DEVICE Fin al Result Performing Organization Address [facility] Co de Phone Number [facility] [address] [place] [address], [phone] * (ABNORMAL) POCT glucose (09/13/2024 3:52 PM WAX ROOM SUPERVISOR) GLUCOSE POC 289(H) 70 - 109 09/13/2024 3:58 PM WAX ROOM SUPERVISOR [facility] 09/13/2024 3:52 PM WAX ROOM SUPERVISOR us Juanpablo Herman MD POCT ORDERABLES - DEVICE Fin al Result Performing Organization Address [facility] Co de Phone Number [facility] [address] [place] [address], [id number] * (ABNORMAL) Blood gas, venous (09/13/2024 1:00 PM WAX ROOM SUPERVISOR) PH VENOUS 7.32 7.32 - 7.42 09/13/2024 1:54 PM WAX ROOM SUPERVISOR [facility] PCO2 VENOUS 63.4(H) 41.0 - 51.0 MMHG 09/13/2024 1:54 PM WAX ROOM SUPERVISOR [facility] PO2 VENOUS 27.2 25.0 - 40.0 MM HG 09/13/2024 1:54 PM WAX ROOM SUPERVISOR [facility] BICARB VENOUS 31.6(H) 24 - 28 MMOL/L 09/13/2024 1:54 PM WAX ROOM SUPERVISOR [facility] TOTAL CO2 VENOUS 33.6(H) 25.0 - 29.0 MMOL/L 09/13/2024 1:54 PM WAX ROOM SUPERVISOR [facility] BASE EXCESS VENOUS 4.4(H) 0 - 2 MMOL/L 09/13/2024 1:54 PM WAX ROOM SUPERVISOR [facility] O2 SAT VENOUS 43 <75 % 09/13/2024 1:54 PM WAX ROOM SUPERVISOR [facility] 09/13/2024 1:00 PM WAX ROOM SUPERVISOR Juanpablo Herman MD LABORATORY Final Result Performing Organization Address [facility]/ZIP Co de Phone Number [facility] [address] [place] [address], [id number] * (ABNORMAL) POCT glucose (09/13/2024 11:30 AM WAX ROOM SUPERVISOR) GLUCOSE POC 210(H) 70 - 109 09/13/2024 11:31 AM WAX ROOM SUPERVISOR [facility] 09/13/2024 11:3 0 AM WAX ROOM SUPERVISOR Juanpablo Herman MD POCT ORDERABLES - DEVICE Fin al Result Performing Organization Address [facility]/ZIP Co de Phone Number [facility] [address] [place] [address], [phone] * (ABNORMAL) POCT glucose (09/13/2024 6:33 AM WAX ROOM SUPERVISOR) GLUCOSE POC 188(H) 70 - 109 09/13/2024 6:34 AM WAX ROOM SUPERVISOR [facility] 09/13/2024 6:33 AM WAX ROOM SUPERVISOR Juanpablo Herman MD POCT ORDERABLES - DEVICE Fin al Result Performing Organization Address [facility] de Phone Number [facility] [address] [place] [address], [phone] * (ABNORMAL) Blood gas, venous (09/13/2024 4:58 AM WAX ROOM SUPERVISOR) PH VENOUS 7.29(L) 7.32 - 7.42 09/13/2024 5:17 AM [facility] PCO2 VENOUS 68.6(H) 41.0 - 51.0 MMHG 09/13/2024 5:17 AM [facility] PO2 VENOUS 28.1 25.0 - 40.0 MM HG 09/13/2024 5:17 AM [facility] BICARB VENOUS 31.8(H) 24 - 28 MMOL/L 09/13/2024 5:17 AM [facility] TOTAL CO2 VENOUS 33.9(H) 25.0 - 29.0 MMOL/L 09/13/2024 5:17 AM [facility] BASE EXCESS VENOUS 4.0(H) 0 - 2 MMOL/L 09/13/2024 5:17 AM [facility] O2 SAT VENOUS 44 <75 % 09/13/2024 5:17 AM WAX ROOM SUPERVISOR [facility] 09/13/2024 4:58 AM WAX ROOM SUPERVISOR us Keyona Miller MD LABORATORY Fi nal Result Performing Organization Address [facility] Co de Phone Number [facility] [address] [place] [address], [id number] * PHOSPHORUS, INORGANIC PHOSPHATE (09/13/2024 4:58 AM WAX ROOM SUPERVISOR) PHOSPHORUS 3.1 2.5 - 4.9 MG/DL 09/13/2024 5:47 AM WAX ROOM SUPERVISOR [facility] 09/13/2024 4:58 AM WAX ROOM SUPERVISOR us Keyona Miller MD LABORATORY Fi nal Result Performing Organization Address [facility] Co de Phone Number [facility] [address] [place] [address], [place] [phone] * (ABNORMAL) MAGNESIUM (09/13/2024 4:58 AM WAX ROOM SUPERVISOR) MAGNESIUM 2.9(H) 1.6 - 2.6 MG/DL 09/13/2024 5:47 AM WAX ROOM SUPERVISOR [facility] 09/13/2024 4:58 AM WAX ROOM SUPERVISOR us Keyona Miller MD LABORATORY Fi nal Result Performing Organization Address [facility] de Phone Number [facility] [address] [place] [address], [phone] * (ABNORMAL) PROTIME/INR, VENOUS (09/13/2024 4:58 AM WAX ROOM SUPERVISOR) PROTIME 14.0(H) 9.4 - 12.5 SEC 09/13/2024 5:43 AM WAX ROOM SUPERVISOR [facility] INR 1.2(H) 0.8 - 1.1 09/13/2024 5:43 AM WAX ROOM SUPERVISOR [facility] 09/13/2024 4:58 AM WAX ROOM SUPERVISOR us Keyona Miller MD LABORATORY Fi nal Result Performing Organization Address [facility] Co de Phone Number [facility] [address] [place] [address], [id number] * (ABNORMAL) POCT glucose (09/12/2024 9:25 PM WAX ROOM SUPERVISOR) GLUCOSE POC >500(H) 70 - 109 09/12/2024 9:39 PM WAX ROOM SUPERVISOR [facility] 09/12/2024 9:25 PM WAX ROOM SUPERVISOR Juanpablo Herman MD POCT ORDERABLES - DEVICE Fin al Result Performing Organization Address [facility] de Phone Number [facility] [address] [place] [address], [id number] * (ABNORMAL) POCT glucose (09/12/2024 5:30 PM WAX ROOM SUPERVISOR) GLUCOSE POC 379(H) 70 - 109 09/12/2024 5:32 PM WAX ROOM SUPERVISOR [facility] 09/12/2024 5:30 PM WAX ROOM SUPERVISOR Juanpablo Herman MD POCT ORDERABLES - DEVICE Fin al Result Performing Organization Address [facility] Co de Phone Number [facility] [address] [place] [address], [place] [phone] * (ABNORMAL) POCT glucose (09/12/2024 4:19 PM WAX ROOM SUPERVISOR) GLUCOSE POC 397(H) 70 - 109 09/12/2024 4:23 PM WAX ROOM SUPERVISOR [facility] 09/12/2024 4:19 PM WAX ROOM SUPERVISOR us Juanpablo Herman MD POCT ORDERABLES - DEVICE Fin al Result Performing Organization Address [facility] de Phone Number [facility] [address] [place] [address], [place] [phone] * (ABNORMAL) POCT glucose (09/12/2024 11:32 AM WAX ROOM SUPERVISOR) GLUCOSE POC 241(H) 70 - 109 09/12/2024 11:38 AM WAX ROOM SUPERVISOR [facility] 09/12/2024 11:3 2 AM WAX ROOM SUPERVISOR us Juanpablo Herman MD POCT ORDERABLES - DEVICE Fin al Result Performing Organization Address [facility] de Phone Number [facility] [address] [place] [address], [place] [phone] * (ABNORMAL) POCT glucose (09/12/2024 6:27 AM WAX ROOM SUPERVISOR) GLUCOSE POC 280(H) 70 - 109 09/12/2024 6:30 AM WAX ROOM SUPERVISOR [facility] 09/12/2024 6:27 AM WAX ROOM SUPERVISOR us Juanpablo Herman MD POCT ORDERABLES - DEVICE Fin al Result Performing Organization Address [facility] de Phone Number [facility] [address] [place] [address], [place] [phone] * (ABNORMAL) Blood gas, venous (09/12/2024 3:12 AM WAX ROOM SUPERVISOR) PH VENOUS 7.32 7.32 - 7.42 09/12/2024 3:21 AM WAX ROOM SUPERVISOR [facility] PCO2 VENOUS 64.1(H) 41.0 - 51.0 MMHG 09/12/2024 3:21 AM [employer]AX ROOM SUPERVISOR [facility] PO2 VENOUS 29.4 25.0 - 40.0 MM HG 09/12/2024 3:21 AM [facility] BICARB VENOUS 32.2(H) 24 - 28 MMOL/L 09/12/2024 3:21 AM [facility] TOTAL CO2 VENOUS 34.2(H) 25.0 - 29.0 MMOL/L 09/12/2024 3:21 AM [facility] BASE EXCESS VENOUS 5.1(H) 0 - 2 MMOL/L 09/12/2024 3:21 AM [facility] O2 SAT VENOUS 48 <75 % 09/12/2024 3:21 AM [employer]AX ROOM SUPERVISOR [facility] 09/12/2024 3:12 AM WAX ROOM SUPERVISOR Keyona Miller MD LABORATORY Fi nal Result Performing Organization Address [facility]/ZIP Co de Phone Number [facility] [address] [place] [address], [phone] * PHOSPHORUS, INORGANIC PHOSPHATE (09/12/2024 3:12 AM WAX ROOM SUPERVISOR) PHOSPHORUS 2.9 2.5 - 4.9 MG/DL 09/12/2024 4:00 AM [employer] ROOM SUPERVISOR [facility] 09/12/2024 3:12 AM WAX ROOM SUPERVISOR Keyona Miller MD LABORATORY Fi nal Result Performing Organization Address City/[facility] Co de Phone Number [facility] [address] [place] [address], [phone] * (ABNORMAL) MAGNESIUM (09/12/2024 3:12 AM WAX ROOM SUPERVISOR) MAGNESIUM 2.7(H) 1.6 - 2.6 MG/DL 09/12/2024 4:00 AM [facility] 09/12/2024 3:12 AM WAX ROOM SUPERVISOR Keyona Miller MD LABORATORY Fi nal Result [facility] [address] [place] [address], [phone] * (ABNORMAL) CBC W/DIFF AUTOMATED (09/12/2024 3:12 AM WAX ROOM SUPERVISOR) Pathologist [facility] WBC 13.55(H) 4.00 - 10.80 x10'3/uL 09/12/2024 3:23 AM [facility] RBC 3.75(L) 4.50 - 6.10 x10'6/uL 09/12/2024 3:23 AM [facility] HGB 10.8(L) 12.0 - 16.0 G/DL 09/12/2024 3:23 AM [facility] HCT 35.6(L) 37.0 - 52.0 % 09/12/2024 3:23 AM [facility] MCV 94.9 78.0 - 100.0 FL 09/12/2024 3:23 AM [facility] MCH 28.8 27.0 - 31.0 PG 09/12/2024 3:23 AM [facility] MCHC 30.3(L) 33.0 - 36.0 G/DL 09/12/2024 3:23 AM [facility] RDW 15.4(H) 11.5 - 14.5 % 09/12/2024 3:23 AM [facility] PLT 129(L) 150 - 350 x10'3/uL 09/12/2024 3:23 AM [facility] MPV 13.9(H) 7.4 - 10.4 FL 09/12/2024 3:23 AM [facility] DIFFERENTIAL TYPE AUTOMATED DIFFERENTIAL 09/12/2024 3:24 AM [facility] SEG NEUTROPHILS 82.8 % 3:24 AM [facility] LYMPHOCYTES 5.7 % 09/12/2024 3:24 AM [facility] MONOCYTES 8.3 % 09/12/2024 3:24 AM [facility] EOSINOPHILS 0.3 % 09/12/2024 3:24 AM [facility] BASOPHILS 0.1 % 09/12/2024 3:24 AM [facility] IMMATURE GRANS % 2.8 % 09/12/19 3:24 AM [facility] ABS. NEUTROPHILS 11.22(H) 1.60 - 8.30 x10'3/uL 09/12/2024 3:24 AM [facility] ABS. LYMPHOCYTES 0.77(L) 0.80 - 4.70 x10'3/uL 09/12/2024 3:24 AM [facility] ABS. MONOCYTES 1.12 0.00 - 1.50 x10'3/uL 09/12/2024 3:24 AM [facility] ABS. EOSINOPHILS 0.04 0.00 - 0.40 x10'3/uL 09/12/2024 3:24 AM [facility] ABS. BASOPHILS 0.02 0.00 - 0.20 x10'3/uL 09/12/2024 3:24 AM [facility] ABS. IMMATURE GRANULOCYTES 0.38(H) 0.00 - 0.03 x10'3/uL 09/12/2024 3:24 AM [facility] ABS. NUCLEATED RBC'S 0.00 0.00 - 0.01 x10'3/uL 09/12/2024 3:24 AM [facility] NRBC % 0.0 % 09/12/2024 3:24 AM [facility] 09/12/2024 3:12 AM WAX ROOM SUPERVISOR Juanpablo Herman MD LABORATORY Final Result [facility] [address] [place] [address], [phone] * (ABNORMAL) BASIC METABOLIC PANEL (09/12/2024 3:12 AM WAX ROOM SUPERVISOR) SODIUM S/P/B 137 136 - 145 MMOL/L 09/12/2024 4:00 AM [facility] POTASSIUM S/P/B 4.3 3.5 - 5.1 MMOL/L 09/12/2024 4:00 AM [facility] CHLORIDE S/P/B 102 97 - 115 MMOL/L 09/12/2024 4:00 AM [facility] CO2 31.9 21.0 - 32.0 MMOL/L 09/12/2024 4:00 AM [facility] GLUCOSE 304(H) 74 - 106 MG/DL 09/12/2024 4:00 AM [facility] BUN 39(H) 7 - 18 MG/DL 09/12/2024 4:00 AM [facility] CREATININE S/P/B 1.37(H) 0.70 - 1.30 MG/DL 09/12/2024 4:00 AM [facility] CALCIUM S/P/B 8.6 8.5 - 10.1 MG/DL 09/12/2024 4:00 AM [facility] ANION GAP 3.1 2.0 - 10.0 MMOL/L 09/12/2024 4:00 AM [facility] OSMOLALITY (CALC) 305 MOSM/KG 025 4:00 AM [facility] Comment:REFERENCE RANGE NOT ESTABLISHED GFR ESTIMATE 55(L) >90 ML/MIN/1. 73 M2 09/12/2024 4:00 AM WAX ROOM SUPERVISOR [facility] GFR NOTES GFR REFERENCE S: 09/12/2024 4:00 AM WAX ROOM SUPERVISOR [facility] Comment: THE ESTIMATED GFR IS CALCULATED [...] ml/min/1.73 m2 G5,KIDNEY FAILURE: <15 ml/min/1.73 m2 09/12/2024 3:12 AM WAX ROOM SUPERVISOR Juanpablo Herman MD LABORATORY Final Result Performing Organization Address [facility] Co de Phone Number [facility] [address] [place] [address], [phone] * (ABNORMAL) PROTIME/INR, VENOUS (09/12/2024 3:12 AM WAX ROOM SUPERVISOR) PROTIME 16.1(H) 9.4 - 12.5 SEC 09/12/2024 3:45 AM WAX ROOM SUPERVISOR [facility] INR 1.4(H) 0.8 - 1.1 09/12/2024 3:45 AM WAX ROOM SUPERVISOR [facility] 09/12/2024 3:12 AM WAX ROOM SUPERVISOR Keyona Miller MD LABORATORY Fi nal Result Performing Organization Address [facility] Co de Phone Number [facility] [address] [place] [address], [phone] * (ABNORMAL) POCT glucose (09/11/2024 8:30 PM WAX ROOM SUPERVISOR) GLUCOSE POC 297(H) 70 - 109 09/11/2024 8:36 PM WAX ROOM SUPERVISOR [facility] 09/11/2024 8:30 PM WAX ROOM SUPERVISOR us Juanpablo Herman MD POCT ORDERABLES - DEVICE Fin al Result Performing Organization Address City/[facility]/ZIP Co de Phone Number [facility] [address] [place] [address], [place] [phone] * (ABNORMAL) POCT glucose (09/11/2024 4:08 PM WAX ROOM SUPERVISOR) GLUCOSE POC 360(H) 70 - 109 09/11/2024 4:30 PM WAX ROOM SUPERVISOR [facility] 09/11/2024 4:08 PM WAX ROOM SUPERVISOR us Juanpablo Herman MD POCT ORDERABLES - DEVICE Fin al Result Performing Organization Address [facility] Co de Phone Number [facility] [address] [place] [address], [place] [phone] * (ABNORMAL) POCT glucose (09/11/2024 12:21 PM WAX ROOM SUPERVISOR) GLUCOSE POC 211(H) 70 - 109 09/11/2024 12:23 PM WAX ROOM SUPERVISOR [facility] 09/11/2024 12:2 1 PM WAX ROOM SUPERVISOR us Juanpablo Herman MD POCT ORDERABLES - DEVICE Fin al Result Performing Organization Address City/[facility] Co de Phone Number [facility] [address] [place] [address], [place] [phone] * ECG 12 lead (09/11/2024 5:38 AM WAX ROOM SUPERVISOR) 09/11/2024 5:38 AM WAX ROOM SUPERVISOR Narrative [facility] - 09/11/2024 10:42 AM WAX ROOM SUPERVISOR ? [facility] ?[address] [place], [place] ??[address] ? Test Date: ?2024-09-11 Pat Name: ? OBIE SIMS ?Department: ?? 1 ? Room: ? 516AA Gender: ? Male ? Dot Etcher Apprentice: ?? Ll : ?1955 ? Requested By: JUANPABLO HERMAN Order Number: [id number] ? Reading MD: ?? Ronni Daniel ? Measurements Intervals ?[place] ? Rate: ? 81 ? P: ? TN: ? 0 ?QRS: ?-38 QRSD: ? 137 ?T: ?119 QT: ? 416 ? QTc: ?486 ? Interpretive Statements ATRIAL FIBRILLATION WITH ABERRANT CONDUCTION OR VENTRICULAR PREMATURE COMPLEXES LEFT AXIS DEVIATION ??[QRS AXIS < -30] INTRAVENTRICULAR CONDUCTION DELAY ??[130+ ms QRS DURATION] ROOM SUPERVISOR Procedure Note Ronni Sanchez MD - 09/11/2024 [place] [address] [place] [address] Test Date: 2024-09-11 Pat Name: OBIE SIMS Department: 1 Room: [facility] Gender: Male Dot Etcher Apprentice: Prabha : 1955 Requested By: JUANPABLO HERMAN Order Number: [id number] Reading MD: Ronni Sanchez Measurements Intervals [place] Rate: 81 P: TN: 0 QRS: -38 QRSD: 137 T: 119 QT: 416 QTc: 486 Interpretive Statements ATRIAL FIBRILLATION WITH ABERRANT CONDUCTION OR VENTRICULAR PREMATURE COMPLEXES LEFT AXIS DEVIATION [QRS AXIS < -30] INTRAVENTRICULAR CONDUCTION DELAY [130+ ms QRS DURATION] ROOM SUPERVISOR us Juanpablo Herman MD ECG ORDERABLES Final Result [facility] * (ABNORMAL) POCT glucose (09/11/2024 5:32 AM WAX ROOM SUPERVISOR) GLUCOSE POC 173(H) 70 - 109 09/11/2024 5:33 AM WAX ROOM SUPERVISOR [facility] 09/11/2024 5:32 AM WAX ROOM SUPERVISOR Juanpablo Herman MD POCT ORDERABLES - DEVICE Fin al Result Performing Organization Address [facility] de Phone Number [facility] [address] [place] [address], [phone] * (ABNORMAL) Blood gas, venous (09/11/2024 3:58 AM WAX ROOM SUPERVISOR) PH VENOUS 7.32 7.32 - 7.42 09/11/2024 4:03 AM [facility] PCO2 VENOUS 67.9(H) 41.0 - 51.0 MMHG 09/11/2024 4:03 AM [facility] PO2 VENOUS 26.9 25.0 - 40.0 MM HG 09/11/2024 4:03 AM [facility] BICARB VENOUS 34.0(H) 24 - 28 MMOL/L 09/11/2024 4:03 AM [facility] TOTAL CO2 VENOUS 36.1(H) 25.0 - 29.0 MMOL/L 09/11/2024 4:03 AM [facility] BASE EXCESS VENOUS 7.1(H) 0 - 2 MMOL/L 09/11/2024 4:03 AM [facility] O2 SAT VENOUS 40 <75 % 09/11/2024 4:03 AM [facility] 09/11/2024 3:58 AM WAX ROOM SUPERVISOR Keyona Miller MD LABORATORY Fi nal Result Performing Organization Address [facility] Co de Phone Number [facility] [address] [place] [address], [phone] * PHOSPHORUS, INORGANIC PHOSPHATE (09/11/2024 3:58 AM WAX ROOM SUPERVISOR) PHOSPHORUS 3.1 2.5 - 4.9 MG/DL 09/11/2024 4:40 AM WAX ROOM SUPERVISOR [facility] 09/11/2024 3:58 AM WAX ROOM SUPERVISOR Keyona Miller MD LABORATORY Fi nal Result Performing Organization Address City/State/[facility] Co de Phone Number [facility] [address] [place] [address], [phone] * MAGNESIUM (09/11/2024 3:58 AM WAX ROOM SUPERVISOR) MAGNESIUM 2.4 1.6 - 2.6 MG/DL 09/11/2024 4:40 AM WAX ROOM SUPERVISOR [facility] 09/11/2024 3:58 AM WAX ROOM SUPERVISOR Keyona Miller MD LABORATORY Fi nal Result Performing Organization Address [facility] Co de Phone Number [facility] [address] [place] [address], [phone] * (ABNORMAL) COMPREHENSIVE METABOLIC PANEL (09/11/2024 3:58 AM WAX ROOM SUPERVISOR) SODIUM S/P/B 140 136 - 145 MMOL/L 09/11/2024 4:40 AM WAX ROOM SUPERVISOR [facility] POTASSIUM S/P/B 3.5 3.5 - 5.1 MMOL/L 09/11/2024 4:40 AM WAX ROOM SUPERVISOR [facility] CHLORIDE S/P/B 104 97 - 115 MMOL/L 09/11/2024 4:40 AM WAX ROOM SUPERVISOR [facility] CO2 31.7 21.0 - 32.0 MMOL/L 09/11/2024 4:40 AM WAX ROOM SUPERVISOR [facility] GLUCOSE 224(H) 74 - 106 MG/DL 09/11/2024 4:40 AM [facility] BUN 36(H) 7 - 18 MG/DL 09/11/2024 4:40 AM [facility] CREATININE S/P/B 1.52(H) 0.70 - 1.30 MG/DL 09/11/2024 4:40 AM [facility] CALCIUM S/P/B 8.6 8.5 - 10.1 MG/DL 09/11/2024 4:40 AM [facility] BILIRUBIN TOTAL S/P/B 0.9 0.2 - 1.0 MG/DL 09/11/2024 4:40 AM [facility] ALKALINE PHOSPHATASE S/P/B 110 45 - 115 U/L 09/11/2024 4:40 AM [facility] AST 22 15 - 37 U/L 09/11/2024 4:40 AM [facility] ALT 30 16 - 61 U/L 09/11/2024 4:40 AM [facility] TOTAL PROTEIN S/P/B 7.2 6.4 - 8.2 G/DL 09/11/2024 4:40 AM [facility] ALBUMIN S/P/B 2.4(L) 3.4 - 5.0 G/DL 09/11/2024 4:40 AM [facility] ANION GAP 4.3 2.0 - 10.0 MMOL/L 09/11/2024 4:40 AM [facility] OSMOLALITY (CALC) 305 MOSM/KG 025 4:40 AM [facility] Comment:REFERENCE RANGE NOT ESTABLISHED GFR ESTIMATE 49(L) >90 ML/MIN/1. 73 M2 09/11/2024 4:40 AM [facility] GFR NOTES GFR REFERENCE S: 09/11/2024 4:40 AM [facility] Comment: THE ESTIMATED GFR IS [...] ml/min/1.73 m2 G5,KIDNEY FAILURE: <15 ml/min/1.73 m2 09/11/2024 3:58 AM WAX ROOM SUPERVISOR Juanpablo Herman MD LABORATORY Final Result [facility] [address] [place] [address], [phone] * (ABNORMAL) CBC W/DIFF AUTOMATED (09/11/2024 3:58 AM WAX ROOM SUPERVISOR) WBC 13.97(H) 4.00 - 10.80 x10'3/uL 09/11/2024 4:27 AM WAX ROOM SUPERVISOR [facility] RBC 3.68(L) 4.50 - 6.10 x10'6/uL 09/11/2024 4:27 AM [facility] HGB 10.4(L) 12.0 - 16.0 G/DL 09/11/2024 4:27 AM WAX ROOM SUPERVISOR [facility] HCT 34.9(L) 37.0 - 52.0 % 09/11/2024 4:27 AM WAX ROOM SUPERVISOR [facility] MCV 94.8 78.0 - 100.0 FL 09/11/2024 4:27 AM WAX ROOM SUPERVISOR [facility] MCH 28.3 27.0 - 31.0 PG 09/11/2024 4:27 AM [facility] MCHC 29.8(L) 33.0 - 36.0 G/DL 09/11/2024 4:27 AM [facility] RDW 15.5(H) 11.5 - 14.5 % 09/11/2024 4:27 AM [facility] PLT 103(L) 150 - 350 x10'3/uL 09/11/2024 4:27 AM [facility] MPV 13.8(H) 7.4 - 10.4 FL 09/11/2024 4:27 AM [facility] DIFFERENTIAL TYPE AUTOMATED DIFFERENTIAL 09/11/2024 4:27 AM [facility] SEG NEUTROPHILS 77.8 % 4:27 AM [facility] LYMPHOCYTES 8.3 % 09/11/2024 4:27 AM [facility] MONOCYTES 10.0 % 09/11/2024 4:27 AM [facility] EOSINOPHILS 1.4 % 09/11/2024 4:27 AM [facility] BASOPHILS 0.2 % 09/11/2024 4:27 AM [facility] IMMATURE GRANS % 2.3 % 09/11/19 4:27 AM [facility] ABS. NEUTROPHILS 10.87(H) 1.60 - 8.30 x10'3/uL 09/11/2024 4:27 AM [facility] ABS. LYMPHOCYTES 1.16 0.80 - 4.70 x10'3/uL 09/11/2024 4:27 AM [facility] ABS. MONOCYTES 1.40 0.00 - 1.50 x10'3/uL 09/11/2024 4:27 AM [facility] ABS. EOSINOPHILS 0.19 0.00 - 0.40 x10'3/uL 09/11/2024 4:27 AM [facility] ABS. BASOPHILS 0.03 0.00 - 0.20 x10'3/uL 09/11/2024 4:27 AM [facility] ABS. IMMATURE GRANULOCYTES 0.32(H) 0.00 - 0.03 x10'3/uL 09/11/2024 4:27 AM WAX ROOM SUPERVISOR [facility] ABS. NUCLEATED RBC'S 0.00 0.00 - 0.01 x10'3/uL 09/11/2024 4:27 AM WAX ROOM SUPERVISOR [facility] NRBC % 0.0 % 09/11/2024 4:27 AM WAX ROOM SUPERVISOR [facility] 09/11/2024 3:58 AM WAX ROOM SUPERVISOR Juanpablo Herman MD LABORATORY Final Result Performing Organization Address [facility] Co de Phone Number [facility] [address] [place] [address], [phone] * (ABNORMAL) PROTIME/INR, VENOUS (09/11/2024 3:58 AM WAX ROOM SUPERVISOR) PROTIME 15.6(H) 9.4 - 12.5 SEC 09/11/2024 4:32 AM WAX ROOM SUPERVISOR [facility] INR 1.3(H) 0.8 - 1.1 09/11/2024 4:32 AM WAX ROOM SUPERVISOR [facility] 09/11/2024 3:58 AM WAX ROOM SUPERVISOR us Keyona Miller MD LABORATORY Fi nal Result Performing Organization Address City/[facility]/ZIP Co de Phone Number [facility] [address] [place] [address], [phone] * (ABNORMAL) POCT glucose (09/10/2024 9:08 PM WAX ROOM SUPERVISOR) GLUCOSE POC 273(H) 70 - 109 09/10/2024 9:17 PM WAX ROOM SUPERVISOR [facility] 09/10/2024 9:08 PM WAX ROOM SUPERVISOR Juanpablo Herman MD POCT ORDERABLES - DEVICE Fin al Result Performing Organization Address [facility] Co de Phone Number [facility] [address] [place] [address], [phone] * (ABNORMAL) POCT glucose (09/10/2024 4:09 PM WAX ROOM SUPERVISOR) GLUCOSE POC 240(H) 70 - 109 09/10/2024 4:19 PM WAX ROOM SUPERVISOR [facility] 09/10/2024 4:09 PM WAX ROOM SUPERVISOR us Juanpablo Herman MD POCT ORDERABLES - DEVICE Fin al Result Performing Organization Address [facility] de Phone Number [facility] [address] [place] [address], [place] [phone] * (ABNORMAL) POCT glucose (09/10/2024 12:03 PM WAX ROOM SUPERVISOR) GLUCOSE POC 175(H) 70 - 109 09/10/2024 12:23 PM WAX ROOM SUPERVISOR [facility] 09/10/2024 12:0 3 PM WAX ROOM SUPERVISOR us Juanpablo Herman MD POCT ORDERABLES - DEVICE Fin al Result Performing Organization Address [facility] Co de Phone Number [facility] [address] [place] [address], [place] [phone] * (ABNORMAL) POCT glucose (09/10/2024 6:16 AM WAX ROOM SUPERVISOR) GLUCOSE POC 297(H) 70 - 109 09/10/2024 6:24 AM WAX ROOM SUPERVISOR [facility] 09/10/2024 6:16 AM WAX ROOM SUPERVISOR us Juanpablo Herman MD POCT ORDERABLES - DEVICE Fin al Result Performing Organization Address [facility] Co de Phone Number [facility] [address] [place] [address], [phone] * (ABNORMAL) BASIC METABOLIC PANEL (09/10/2024 5:49 AM WAX ROOM SUPERVISOR) SODIUM S/P/B 147(H) 136 - 145 MMOL/L 09/10/2024 9:49 AM [facility] POTASSIUM S/P/B 3.6 3.5 - 5.1 MMOL/L 09/10/2024 9:49 AM [facility] CHLORIDE S/P/B 114 97 - 115 MMOL/L 09/10/2024 9:49 AM [facility] CO2 28.8 21.0 - 32.0 MMOL/L 09/10/2024 9:49 AM [facility] GLUCOSE 330(H) 74 - 106 MG/DL 09/10/2024 9:49 AM [facility] BUN 37(H) 7 - 18 MG/DL 09/10/2024 9:49 AM [facility] CREATININE S/P/B 1.52(H) 0.70 - 1.30 MG/DL 09/10/2024 9:49 AM [facility] CALCIUM S/P/B 8.9 8.5 - 10.1 MG/DL 09/10/2024 9:49 AM [facility] ANION GAP 4.2 2.0 - 10.0 MMOL/L 09/10/2024 9:49 AM [facility] OSMOLALITY (CALC) 326 MOSM/KG 025 9:49 AM [facility] Comment:REFERENCE RANGE NOT ESTABLISHED GFR ESTIMATE 49(L) >90 ML/MIN/1. 73 M2 09/10/2024 9:49 AM [facility] GFR NOTES GFR REFERENCE S: 09/10/2024 9:49 AM [facility] Comment: THE ESTIMATED GFR IS [...] ml/min/1.73 m2 G5,KIDNEY FAILURE: <15 ml/min/1.73 m2 09/10/2024 5:49 AM WAX ROOM SUPERVISOR us Juanpablo Herman MD LABORATORY Final Result [facility] [address] [place] [address], [phone] * (ABNORMAL) Blood gas, venous (09/10/2024 5:49 AM WAX ROOM SUPERVISOR) PH VENOUS 7.32 7.32 - 7.42 09/10/2024 5:56 AM WAX ROOM SUPERVISOR [facility] PCO2 VENOUS 60.4(H) 41.0 - 51.0 MMHG 09/10/2024 5:56 AM WAX ROOM SUPERVISOR [facility] PO2 VENOUS 20.7(L) 25.0 - 40.0 MM HG 09/10/2024 5:56 AM WAX ROOM SUPERVISOR [facility] BICARB VENOUS 30.1(H) 24 - 28 MMOL/L 09/10/2024 5:56 AM WAX ROOM SUPERVISOR [facility] TOTAL CO2 VENOUS 31.9(H) 25.0 - 29.0 MMOL/L 09/10/2024 5:56 AM WAX ROOM SUPERVISOR [facility] BASE EXCESS VENOUS 3.1(H) 0 - 2 MMOL/L 09/10/2024 5:56 AM WAX ROOM SUPERVISOR [facility] O2 SAT VENOUS 28 <75 % 09/10/2024 5:56 AM WAX ROOM SUPERVISOR [facility] 09/10/2024 5:49 AM WAX ROOM SUPERVISOR us Keyona Miller MD LABORATORY Fi nal Result Performing Organization Address [facility] Co de Phone Number [facility] [address] [place] [address], [place] [phone] * (ABNORMAL) PHOSPHORUS, INORGANIC PHOSPHATE (09/10/2024 5:49 AM WAX ROOM SUPERVISOR) PHOSPHORUS 2.3(L) 2.5 - 4.9 MG/DL 09/10/2024 6:24 AM WAX ROOM SUPERVISOR [facility] 09/10/2024 5:49 AM WAX ROOM SUPERVISOR us Keyona Miller MD LABORATORY Fi nal Result Performing Organization Address [facility] de Phone Number [facility] [address] [place] [address], [phone] * (ABNORMAL) MAGNESIUM (09/10/2024 5:49 AM WAX ROOM SUPERVISOR) MAGNESIUM 2.9(H) 1.6 - 2.6 MG/DL 09/10/2024 6:24 AM WAX ROOM SUPERVISOR [facility] 09/10/2024 5:49 AM WAX ROOM SUPERVISOR us Keyona Miller MD LABORATORY Fi nal Result Performing Organization Address [facility] de Phone Number [facility] [address] [place] [address], [place] [phone] * (ABNORMAL) PROTIME/INR, VENOUS (09/10/2024 5:49 AM WAX ROOM SUPERVISOR) PROTIME 14.8(H) 9.4 - 12.5 SEC 09/10/2024 6:23 AM WAX ROOM SUPERVISOR [facility] INR 1.3(H) 0.8 - 1.1 09/10/2024 6:23 AM [facility] 09/10/2024 5:49 AM WAX ROOM SUPERVISOR Keyona Miller MD LABORATORY Fi nal Result [facility] [address] [place] [address], [phone] * (ABNORMAL) CBC W/DIFF AUTOMATED (09/10/2024 5:47 AM WAX ROOM SUPERVISOR) WBC 11.75(H) 4.00 - 10.80 x10'3/uL 09/10/2024 9:49 AM [facility] RBC 4.07(L) 4.50 - 6.10 x10'6/uL 09/10/2024 9:49 AM [facility] HGB 11.7(L) 12.0 - 16.0 G/DL 09/10/2024 9:49 AM [facility] HCT 39.8 37.0 - 52.0 % 09/10/2024 9:49 AM [facility] MCV 97.8 78.0 - 100.0 FL 09/10/2024 9:49 AM [facility] MCH 28.7 27.0 - 31.0 PG 09/10/2024 9:49 AM [facility] MCHC 29.4(L) 33.0 - 36.0 G/DL 09/10/2024 9:49 AM [facility] RDW 15.8(H) 11.5 - 14.5 % 09/10/2024 9:49 AM [facility] PLT 107(L) 150 - 350 x10'3/uL 09/10/2024 9:49 AM [facility] MPV 14.3(H) 7.4 - 10.4 FL 09/10/2024 9:49 AM [facility] DIFFERENTIAL TYPE AUTOMATED DIFFERENTIAL 09/10/2024 9:49 AM [facility] SEG NEUTROPHILS 83.4 % 9:49 AM [facility] LYMPHOCYTES 4.5 % 09/10/2024 9:49 AM [facility] MONOCYTES 9.5 % 09/10/2024 9:49 AM [facility] EOSINOPHILS 0.1 % 09/10/2024 9:49 AM [facility] BASOPHILS 0.3 % 09/10/2024 9:49 AM [facility] IMMATURE GRANS % 2.2 % 09/10/19 9:49 AM [facility] ABS. NEUTROPHILS 9.80(H) 1.60 - 8.30 x10'3/uL 09/10/2024 9:49 AM [facility] ABS. LYMPHOCYTES 0.53(L) 0.80 - 4.70 x10'3/uL 09/10/2024 9:49 AM [facility] ABS. MONOCYTES 1.12 0.00 - 1.50 x10'3/uL 09/10/2024 9:49 AM [facility] ABS. EOSINOPHILS 0.01 0.00 - 0.40 x10'3/uL 09/10/2024 9:49 AM [facility] ABS. BASOPHILS 0.03 0.00 - 0.20 x10'3/uL 09/10/2024 9:49 AM [facility] ABS. IMMATURE GRANULOCYTES 0.26(H) 0.00 - 0.03 x10'3/uL 09/10/2024 9:49 AM [facility] ABS. NUCLEATED RBC'S 0.00 0.00 - 0.01 x10'3/uL 09/10/2024 9:49 AM [facility] NRBC % 0.0 % 09/10/2024 9:49 AM [facility] 09/10/2024 5:47 AM [employer]PER[employer] us Juanpablo Herman MD LABORATORY Final Result Performing Organization Address [facility] Co de Phone Number [facility] [address] [place] [address], [place] [phone] * (ABNORMAL) POCT glucose (09/09/2024 10:02 PM [employer] RO[employer] SUPERVISOR) GLUCOSE POC 372(H) 70 - 109 09/09/2024 10:10 PM [employer] SUPERVISOR [facility] 09/09/2024 10:0 2 PM [employer] SUPERVISOR us Juanpablo Herman MD POCT ORDERABLES - DEVICE Fin al Result Performing Organization Address [facility] Co de Phone Number [facility] [address] [place] [address], [place] [phone] * (ABNORMAL) POCT glucose (09/09/2024 3:51 PM [employer] SUPERVISOR) GLUCOSE POC 245(H) 70 - 109 09/09/2024 4:15 PM [employer] SUPERVISOR [facility] 09/09/2024 3:51 PM [employer] SUPERVISOR Juanpablo Herman MD POCT ORDERABLES - DEVICE Fin al Result Performing Organization Address [facility] Co de Phone Number [facility] [address] [place] [address], [place] [phone] * (ABNORMAL) POCT glucose (09/09/2024 1:00 PM [employer] SUPERVISOR) GLUCOSE POC 171(H) 70 - 109 09/09/2024 1:02 PM [employer] SUPERVISOR [facility] 09/09/2024 1:00 PM [employer] SUPERVISOR Juanpablo Herman MD POCT ORDERABLES - DEVICE Fin al Result Performing Organization Address [facility] Co de Phone Number [facility] [address] [place] [address], [phone] * (ABNORMAL) Blood gas, venous (09/09/2024 12:50 PM [employer] RO[employer] SUPERVISOR) PH VENOUS 7.39 7.32 - 7.42 09/09/2024 12:54 PM [employer] SUPERVISOR [facility] PCO2 VENOUS 50.4 41.0 - 51.0 MMHG 09/09/2024 12:54 PM [employer] SUPERVISOR [facility] PO2 VENOUS 48.0(H) 25.0 - 40.0 MM HG 09/09/2024 12:54 PM [employer] RO[employer] SUPERVISOR [facility] BICARB VENOUS 29.5(H) 24 - 28 MMOL/L 09/09/2024 12:54 PM [employer] SUPERVISOR [facility] TOTAL CO2 VENOUS 31.1(H) 25.0 - 29.0 MMOL/L 09/09/2024 12:54 PM [employer] RO[employer] SUPERVISOR [facility] BASE EXCESS VENOUS 4.1(H) 0 - 2 MMOL/L 09/09/2024 12:54 PM [employer] RO[employer] SUPERVISOR [facility] O2 SAT VENOUS 82(H) <75 % 09/09/2024 12:54 PM [employer] RO[employer] SUPERVISOR [facility] 09/09/2024 12:5 0 PM [employer] RO[employer] SUPERVISOR Juanpablo Herman MD LABORATORY Final Result Performing Organization Address [place]/[facility]/ZIP Co de Phone Number [facility] [address] [place] [address], [phone] * (ABNORMAL) Blood gas, venous (09/09/2024 6:10 AM [employer] RO[employer] SUPERVISOR) PH VENOUS 7.27(L) 7.32 - 7.42 09/09/2024 9:56 AM [employer] RO[employer] SUPERVISOR [facility] PCO2 VENOUS 70.3(HH) 41.0 - 51.0 MMHG 09/09/2024 9:56 AM [employer] RO[employer] SUPERVISOR [facility] Comment: CRITICAL RESULT, SPECIMEN DATE, TIME WERE READ BACK BY RN [id number] ON 09/09/24 AT 0950.SB PO2 VENOUS 24.0(L) 25.0 - 40.0 MM HG 09/09/2024 9:56 AM [employer] ROOM SUPERVISOR [facility] BICARB VENOUS 31.4(H) 24 - 28 MMOL/L 09/09/2024 9:56 AM WAX ROOM SUPERVISOR [facility] TOTAL CO2 VENOUS 33.6(H) 25.0 - 29.0 MMOL/L 09/09/2024 9:56 AM [facility] BASE EXCESS VENOUS 3.1(H) 0 - 2 MMOL/L 09/09/2024 9:56 AM [facility] O2 SAT VENOUS 31 <75 % 09/09/2024 9:56 AM WAX ROOM SUPERVISOR [facility] 09/09/2024 6:10 AM WAX ROOM SUPERVISOR Keyona Miller MD LABORATORY Fi nal Result Performing Organization Address [facility] Co de Phone Number [facility] [address] [place] [address], [phone] * PHOSPHORUS, INORGANIC PHOSPHATE (09/09/2024 6:10 AM WAX ROOM SUPERVISOR) PHOSPHORUS 3.0 2.5 - 4.9 MG/DL 09/09/2024 7:27 AM WAX ROOM SUPERVISOR [facility] 09/09/2024 6:10 AM WAX ROOM SUPERVISOR us Keyona Miller MD LABORATORY Fi nal Result Performing Organization Address [facility]/ZIP Co de Phone Number [facility] [address] [place] [address], [place] [phone] * (ABNORMAL) MAGNESIUM (09/09/2024 6:10 AM WAX ROOM SUPERVISOR) Pathologist [facility] MAGNESIUM 3.1(H) 1.6 - 2.6 MG/DL 09/09/2024 7:27 AM WAX ROOM SUPERVISOR [facility] 09/09/2024 6:10 AM WAX ROOM SUPERVISOR Keyona Miller MD LABORATORY Fi nal Result [facility] [address] [place] [address], [phone] * (ABNORMAL) CBC W/DIFF AUTOMATED (09/09/2024 6:10 AM WAX ROOM SUPERVISOR) Pathologist [facility] WBC 12.18(H) 4.00 - 10.80 x10'3/uL 09/09/2024 6:42 AM [facility] RBC 4.08(L) 4.50 - 6.10 x10'6/uL 09/09/2024 6:42 AM [facility] HGB 11.7(L) 12.0 - 16.0 G/DL 09/09/2024 6:42 AM [facility] HCT 40.1 37.0 - 52.0 % 09/09/2024 6:42 AM [facility] MCV 98.3 78.0 - 100.0 FL 09/09/2024 6:42 AM [facility] MCH 28.7 27.0 - 31.0 PG 09/09/2024 6:42 AM [facility] MCHC 29.2(L) 33.0 - 36.0 G/DL 09/09/2024 6:42 AM [facility] RDW 15.8(H) 11.5 - 14.5 % 09/09/2024 6:42 AM [facility] PLT 102(L) 150 - 350 x10'3/uL 09/09/2024 6:42 AM [facility] MPV 13.2(H) 7.4 - 10.4 FL 09/09/2024 6:42 AM [facility] DIFFERENTIAL TYPE AUTOMATED DIFFERENTIAL 09/09/2024 6:42 AM [facility] SEG NEUTROPHILS 79.7 % 6:42 AM [facility] LYMPHOCYTES 6.1 % 09/09/2024 6:42 AM [facility] MONOCYTES 10.0 % 09/09/2024 6:42 AM [facility] EOSINOPHILS 0.2 % 09/09/2024 6:42 AM [facility] BASOPHILS 0.2 % 09/09/2024 6:42 AM [facility] IMMATURE GRANS % 3.8 % 09/09/19 6:42 AM [facility] ABS. NEUTROPHILS 9.71(H) 1.60 - 8.30 x10'3/uL 09/09/2024 6:42 AM [facility] ABS. LYMPHOCYTES 0.74(L) 0.80 - 4.70 x10'3/uL 09/09/2024 6:42 AM [facility] ABS. MONOCYTES 1.22 0.00 - 1.50 x10'3/uL 09/09/2024 6:42 AM [facility] ABS. EOSINOPHILS 0.02 0.00 - 0.40 x10'3/uL 09/09/2024 6:42 AM [facility] ABS. BASOPHILS 0.03 0.00 - 0.20 x10'3/uL 09/09/2024 6:42 AM [facility] ABS. IMMATURE GRANULOCYTES 0.46(H) 0.00 - 0.03 x10'3/uL 09/09/2024 6:42 AM [facility] ABS. NUCLEATED RBC'S 0.00 0.00 - 0.01 x10'3/uL 09/09/2024 6:42 AM [facility] NRBC % 0.0 % 09/09/2024 6:42 AM [facility] 09/09/2024 6:10 AM WAX ROOM SUPERVISOR Juanpablo Herman MD LABORATORY Final Result [facility] [address] [place] [address], [phone] * (ABNORMAL) COMPREHENSIVE METABOLIC PANEL (09/09/2024 6:10 AM WAX ROOM SUPERVISOR) SODIUM S/P/B 149(H) 136 - 145 MMOL/L 09/09/2024 7:27 AM [facility] POTASSIUM S/P/B 3.6 3.5 - 5.1 MMOL/L 09/09/2024 7:27 AM [facility] CHLORIDE S/P/B 115 97 - 115 MMOL/L 09/09/2024 7:27 AM [facility] CO2 29.3 21.0 - 32.0 MMOL/L 09/09/2024 7:27 AM [facility] GLUCOSE 277(H) 74 - 106 MG/DL 09/09/2024 7:27 AM [facility] BUN 36(H) 7 - 18 MG/DL 09/09/2024 7:27 AM [facility] CREATININE S/P/B 1.66(H) 0.70 - 1.30 MG/DL 09/09/2024 7:27 AM [facility] CALCIUM S/P/B 9.2 8.5 - 10.1 MG/DL 09/09/2024 7:27 AM [facility] BILIRUBIN TOTAL S/P/B 0.9 0.2 - 1.0 MG/DL 09/09/2024 7:27 AM [facility] ALKALINE PHOSPHATASE S/P/B 116(H) 45 - 115 U/L 09/09/2024 7:27 AM [facility] AST 25 15 - 37 U/L 09/09/2024 7:27 AM [facility] ALT 31 16 - 61 U/L 09/09/2024 7:27 AM [facility] TOTAL PROTEIN S/P/B 8.0 6.4 - 8.2 G/DL 09/09/2024 7:27 AM [facility] ALBUMIN S/P/B 2.5(L) 3.4 - 5.0 G/DL 09/09/2024 7:27 AM [facility] ANION GAP 4.7 2.0 - 10.0 MMOL/L 09/09/2024 7:27 AM [facility] OSMOLALITY (CALC) 326 MOSM/KG 025 7:27 AM [facility] Comment:REFERENCE RANGE NOT ESTABLISHED GFR ESTIMATE 44(L) >90 ML/MIN/1. 73 M2 09/09/2024 7:27 AM [facility] GFR NOTES GFR REFERENCE S: 09/09/2024 7:27 AM [facility] Comment: THE ESTIMATED GFR IS [...] ml/min/1.73 m2 G5,KIDNEY FAILURE: <15 ml/min/1.73 m2 09/09/2024 6:10 AM WAX ROOM SUPERVISOR us Juanpablo Herman MD LABORATORY Final Result Performing Organization Address City/State/[facility] Co de Phone Number [facility] [address] [place] [address], [place] [phone] * (ABNORMAL) PROTIME/INR, VENOUS (09/09/2024 6:10 AM WAX ROOM SUPERVISOR) PROTIME 17.1(H) 9.4 - 12.5 SEC 09/09/2024 6:44 AM WAX ROOM SUPERVISOR [facility] INR 1.5(H) 0.8 - 1.1 09/09/2024 6:44 AM WAX ROOM SUPERVISOR [facility] 09/09/2024 6:10 AM WAX ROOM SUPERVISOR Keyona Miller MD LABORATORY Fi nal Result Performing Organization Address [facility] de Phone Number [facility] [address] [place] [address], [place] [phone] * XR CHEST PORTABLE (09/09/2024 6:02 AM WAX ROOM SUPERVISOR) Anatomical Region Laterality Modality Chest Radiographic Stephie ging 09/09/2024 6:33 AM WAX ROOM SUPERVISOR Impressions 09/09/2024 6:34 AM WAX ROOM SUPERVISOR IMPRESSION: 1. ??CARDIOMEGALY WITH INTERVAL INCREASE IN PULMONARY VASCULAR CONGESTION AND EDEMA. Signed: Rigoberto Calderon MD Referred By: PROVIDER NON-STAFF Interpreted By: Rigoberto Calderon MD, 09/09/2024 6:33 AM Narrative 09/09/2024 6:34 AM WAX ROOM SUPERVISOR [address] [address] PATIENT NAME: OBIE SIMS EXAM: Chest one [...] Procedure Note Rigoberto Calderon MD - 09/09/2024 [facility] [address] [place] [address] PATIENT NAME: OBIE SIMS EXAM: Chest one [...] By: Rigoberto Calderon MD, 09/09/2024 6:33 AM Keyona Miller MD GENERAL IMAGING Fi nal Result * (ABNORMAL) POCT glucose (09/09/2024 5:52 AM WAX ROOM SUPERVISOR) GLUCOSE POC 258(H) 70 - 109 09/09/2024 5:53 AM WAX ROOM SUPERVISOR [facility] Comment:RN Notified 09/09/2024 5:52 AM WAX ROOM SUPERVISOR us Juanpablo Herman MD POCT ORDERABLES - DEVICE Fin al Result [facility] [address] [place] [address], [place] [phone] * (ABNORMAL) POCT glucose (09/08/2024 9:27 PM WAX ROOM SUPERVISOR) GLUCOSE POC 302(H) 70 - 109 09/08/2024 9:33 PM WAX ROOM SUPERVISOR [facility] 09/08/2024 9:27 PM WAX ROOM SUPERVISOR us Juanpablo Herman MD POCT ORDERABLES - DEVICE Fin al Result Performing Organization Address [facility] Co de Phone Number [facility] [address] [place] [address], [phone] * (ABNORMAL) POCT glucose (09/08/2024 4:51 PM WAX ROOM SUPERVISOR) GLUCOSE POC 287(H) 70 - 109 09/08/2024 4:57 PM WAX ROOM SUPERVISOR [facility] Comment:Will Repeat Test 09/08/2024 4:51 PM WAX ROOM SUPERVISOR us Juanpablo Herman MD POCT ORDERABLES - DEVICE Fin al Result Performing Organization Address [facility] Co de Phone Number [facility] [address] [place] [address], [place] [phone] * (ABNORMAL) POCT glucose (09/08/2024 11:05 AM WAX ROOM SUPERVISOR) GLUCOSE POC 181(H) 70 - 109 09/08/2024 11:12 AM WAX ROOM SUPERVISOR [facility] Comment:Will Repeat Test 09/08/2024 11:0 5 AM WAX ROOM SUPERVISOR us Juanpablo Herman MD POCT ORDERABLES - DEVICE Fin al Result Performing Organization Address [facility] de Phone Number [facility] [address] [place] [address], [place] [phone] * Vancomycin Random Level (09/08/2024 10:37 AM WAX ROOM SUPERVISOR) VANCOMYCIN RANDOM 16.2 MCG/ML 09/08/2024 11:07 AM WAX ROOM SUPERVISOR [facility] Comment:REFERENCE RANGE NOT ESTABLISHED 09/08/2024 10:3 7 AM WAX ROOM SUPERVISOR Keyona Miller MD LABORATORY Fi nal Result Performing Organization Address [facility] de Phone Number [facility] [address] [place] [address], [phone] * (ABNORMAL) Blood gas, venous (09/08/2024 4:53 AM WAX ROOM SUPERVISOR) PH VENOUS 7.36 7.32 - 7.42 09/08/2024 4:58 AM WAX ROOM SUPERVISOR [facility] PCO2 VENOUS 55.1(H) 41.0 - 51.0 MMHG 09/08/2024 4:58 AM WAX ROOM SUPERVISOR [facility] PO2 VENOUS 29.3 25.0 - 40.0 MM HG 09/08/2024 4:58 AM WAX ROOM SUPERVISOR [facility] BICARB VENOUS 30.6(H) 24 - 28 MMOL/L 09/08/2024 4:58 AM WAX ROOM SUPERVISOR [facility] TOTAL CO2 VENOUS 32.3(H) 25.0 - 29.0 MMOL/L 09/08/2024 4:58 AM WAX ROOM SUPERVISOR [facility] BASE EXCESS VENOUS 4.6(H) 0 - 2 MMOL/L 09/08/2024 4:58 AM WAX ROOM SUPERVISOR [facility] O2 SAT VENOUS 48 <75 % 09/08/2024 4:58 AM WAX ROOM SUPERVISOR [facility] 09/08/2024 4:53 AM WAX ROOM SUPERVISOR us Keyona Miller MD LABORATORY Fi nal Result Performing Organization Address [facility] Co de Phone Number [facility] [address] [place] [address], [phone] * PHOSPHORUS, INORGANIC PHOSPHATE (09/08/2024 4:53 AM WAX ROOM SUPERVISOR) PHOSPHORUS 3.1 2.5 - 4.9 MG/DL 09/08/2024 5:44 AM [facility] 09/08/2024 4:53 AM WAX ROOM SUPERVISOR Keyona Miller MD LABORATORY Fi nal Result [facility] [address] [place] [address], [phone] * (ABNORMAL) COMPREHENSIVE METABOLIC PANEL (09/08/2024 4:53 AM WAX ROOM SUPERVISOR) [facility] SODIUM S/P/B 151(H) 136 - 145 MMOL/L 09/08/2024 5:44 AM [facility] POTASSIUM S/P/B 3.4(L) 3.5 - 5.1 MMOL/L 09/08/2024 5:44 AM [facility] CHLORIDE S/P/B 117(H) 97 - 115 MMOL/L 09/08/2024 5:44 AM [facility] CO2 32.3(H) 21.0 - 32.0 MMOL/L 09/08/2024 5:44 AM [facility] GLUCOSE 136(H) 74 - 106 MG/DL 09/08/2024 5:44 AM [facility] BUN 41(H) 7 - 18 MG/DL 09/08/2024 5:44 AM [facility] CREATININE S/P/B 1.67(H) 0.70 - 1.30 MG/DL 09/08/2024 5:44 AM [facility] CALCIUM S/P/B 9.2 8.5 - 10.1 MG/DL 09/08/2024 5:44 AM [facility] BILIRUBIN TOTAL S/P/B 1.0 0.2 - 1.0 MG/DL 09/08/2024 5:44 AM WAX ROOM SUPERVISOR [facility] ALKALINE PHOSPHATASE S/P/B 104 45 - 115 U/L 09/08/2024 5:44 AM [facility] AST 22 15 - 37 U/L 09/08/2024 5:44 AM [facility] ALT 27 16 - 61 U/L 09/08/2024 5:44 AM [facility] TOTAL PROTEIN S/P/B 7.4 6.4 - 8.2 G/DL 09/08/2024 5:44 AM [facility] ALBUMIN S/P/B 2.3(L) 3.4 - 5.0 G/DL 09/08/2024 5:44 AM [facility] ANION GAP 1.7(L) 2.0 - 10.0 MMOL/L 09/08/2024 5:44 AM [facility] OSMOLALITY (CALC) 324 MOSM/KG 025 5:44 AM [facility] Comment:REFERENCE RANGE NOT ESTABLISHED GFR ESTIMATE 44(L) >90 ML/MIN/1. 73 M2 09/08/2024 5:44 AM [facility] GFR NOTES GFR REFERENCE S: 09/08/2024 5:44 AM [facility] Comment: THE ESTIMATED GFR IS [...] ml/min/1.73 m2 G5,KIDNEY FAILURE: <15 ml/min/1.73 m2 09/08/2024 4:53 AM WAX ROOM SUPERVISOR us Keyona Miller MD LABORATORY Fi nal Result Performing Organization Address [facility] de Phone Number [facility] [address] [place] [address], [phone] * (ABNORMAL) MAGNESIUM (09/08/2024 4:53 AM WAX ROOM SUPERVISOR) MAGNESIUM 2.8(H) 1.6 - 2.6 MG/DL 09/08/2024 5:44 AM WAX ROOM SUPERVISOR [facility] 09/08/2024 4:53 AM WAX ROOM SUPERVISOR Keyona Miller MD LABORATORY Fi nal Result Performing Organization Address [facility] de Phone Number [facility] [address] [place] [address], [id number] * (ABNORMAL) PROTIME/INR, VENOUS (09/08/2024 4:53 AM WAX ROOM SUPERVISOR) PROTIME 21.3(H) 9.4 - 12.5 SEC 09/08/2024 5:30 AM WAX ROOM SUPERVISOR [facility] INR 1.8(H) 0.8 - 1.1 09/08/2024 5:30 AM WAX ROOM SUPERVISOR [facility] 09/08/2024 4:53 AM WAX ROOM SUPERVISOR Keyona Miller MD LABORATORY Fi nal Result Performing Organization Address [facility] de Phone Number [facility] [address] [place] [address], [phone] * (ABNORMAL) CBC W/DIFF AUTOMATED (09/08/2024 4:53 AM WAX ROOM SUPERVISOR) WBC 15.12(H) 4.00 - 10.80 x10'3/uL 09/08/2024 5:04 AM WAX ROOM SUPERVISOR [facility] RBC 3.91(L) 4.50 - 6.10 x10'6/uL 09/08/2024 5:04 AM [facility] HGB 11.1(L) 12.0 - 16.0 G/DL 09/08/2024 5:04 AM [facility] HCT 37.6 37.0 - 52.0 % 09/08/2024 5:04 AM [facility] MCV 96.2 78.0 - 100.0 FL 09/08/2024 5:04 AM [facility] MCH 28.4 27.0 - 31.0 PG 09/08/2024 5:04 AM [facility] MCHC 29.5(L) 33.0 - 36.0 G/DL 09/08/2024 5:04 AM [facility] RDW 15.9(H) 11.5 - 14.5 % 09/08/2024 5:04 AM [facility] PLT 107(L) 150 - 350 x10'3/uL 09/08/2024 5:04 AM [facility] MPV 12.5(H) 7.4 - 10.4 FL 09/08/2024 5:04 AM [facility] DIFFERENTIAL TYPE AUTOMATED DIFFERENTIAL 09/08/2024 5:04 AM [facility] SEG NEUTROPHILS 85.5 % 5:04 AM [facility] LYMPHOCYTES 3.4 % 09/08/2024 5:04 AM [facility] MONOCYTES 8.5 % 09/08/2024 5:04 AM [facility] EOSINOPHILS 0.1 % 09/08/2024 5:04 AM [facility] BASOPHILS 0.3 % 09/08/2024 5:04 AM [facility] IMMATURE GRANS % 2.2 % 09/08/19 5:04 AM [facility] ABS. NEUTROPHILS 12.93(H) 1.60 - 8.30 x10'3/uL 09/08/2024 5:04 AM WAX ROOM SUPERVISOR [facility] ABS. LYMPHOCYTES 0.52(L) 0.80 - 4.70 x10'3/uL 09/08/2024 5:04 AM WAX ROOM SUPERVISOR [facility] ABS. MONOCYTES 1.29 0.00 - 1.50 x10'3/uL 09/08/2024 5:04 AM WAX ROOM SUPERVISOR [facility] ABS. EOSINOPHILS 0.01 0.00 - 0.40 x10'3/uL 09/08/2024 5:04 AM WAX ROOM SUPERVISOR [facility] ABS. BASOPHILS 0.04 0.00 - 0.20 x10'3/uL 09/08/2024 5:04 AM WAX ROOM SUPERVISOR [facility] ABS. IMMATURE GRANULOCYTES 0.33(H) 0.00 - 0.03 x10'3/uL 09/08/2024 5:04 AM WAX ROOM SUPERVISOR [facility] ABS. NUCLEATED RBC'S 0.00 0.00 - 0.01 x10'3/uL 09/08/2024 5:04 AM WAX ROOM SUPERVISOR [facility] NRBC % 0.0 % 09/08/2024 5:04 AM WAX ROOM SUPERVISOR [facility] 09/08/2024 4:53 AM WAX ROOM SUPERVISOR Keyona Miller MD LABORATORY Fi nal Result [facility] [address] [place] [address], [phone] * (ABNORMAL) POCT glucose (09/08/2024 4:10 AM WAX ROOM SUPERVISOR) [facility] GLUCOSE POC 125(H) 70 - 109 09/08/2024 4:12 AM WAX ROOM SUPERVISOR [facility] 09/08/2024 4:1 0 AM WAX ROOM SUPERVISOR Juanpablo Herman MD POCT ORDERABLES - DEVICE Fin al Result Performing Organization Address [facility] Co de Phone Number [facility] [address] [place] [address], [id number] * (ABNORMAL) POCT glucose (09/08/2024 1:05 AM WAX ROOM SUPERVISOR) GLUCOSE POC 157(H) 70 - 109 09/08/2024 1:06 AM WAX ROOM SUPERVISOR [facility] 09/08/2024 1:05 AM WAX ROOM SUPERVISOR Juanpablo Herman MD POCT ORDERABLES - DEVICE Fin al Result Performing Organization Address [facility] de Phone Number [facility] [address] [place] [address], [id number] * (ABNORMAL) POCT glucose (09/07/2024 9:39 PM WAX ROOM SUPERVISOR) GLUCOSE POC 260(H) 70 - 109 09/07/2024 9:42 PM WAX ROOM SUPERVISOR [facility] 09/07/2024 9:39 PM WAX ROOM SUPERVISOR Juanpablo Herman MD POCT ORDERABLES - DEVICE Fin al Result Performing Organization Address [facility] Co de Phone Number [facility] [address] [place] [address], [place] [phone] * (ABNORMAL) POCT glucose (09/07/2024 5:36 PM WAX ROOM SUPERVISOR) GLUCOSE POC 314(H) 70 - 109 09/07/2024 5:51 PM WAX ROOM SUPERVISOR [facility] Comment:Will Repeat Test 09/07/2024 5:36 PM WAX ROOM SUPERVISOR Juanpablo Herman MD POCT ORDERABLES - DEVICE Fin al Result [facility] [address] [place] [address], [id number] * XR SPEECH SWALLOW SJS ONLY (09/07/2024 1:50 PM WAX ROOM SUPERVISOR) Anatomical Region Laterality Modality NA Fluoroscopy 09/08/2024 7:20 AM WAX ROOM SUPERVISOR Impressions 09/11/2024 9:44 AM WAX ROOM SUPERVISOR IMPRESSION: Swallowing abnormalities as above. Please see speech pathology report for additional details. Ordered By: JUANPABLO HERMAN Interpreted By: Yimi Li MD, 09/08/2024 7:20 AM Narrative 09/11/2024 9:44 AM WAX ROOM SUPERVISOR [address] [address] EXAMINATION: Video oropharyngeal swallow study CLINICAL HISTORY: [...] Procedure Note Yimi Li MD - 09/11/[address] [address] EXAMINATION: Video oropharyngeal swallow study CLINICAL HISTORY: [...] pathology report foradditional details. Ordered By: JUANPABLO HERMAN Interpreted By: Yimi Li MD, 09/08/2024 7:20 AM Juanpablo Herman MD FLUOROSCOPY Final Result * (ABNORMAL) POCT glucose (09/07/2024 11:36 AM WAX ROOM SUPERVISOR) GLUCOSE POC 203(H) 70 - 109 09/07/2024 11:50 AM WAX ROOM SUPERVISOR [facility] 09/07/2024 11:3 6 AM WAX ROOM SUPERVISOR Juanpablo Herman MD POCT ORDERABLES - DEVICE Fin al Result [facility] [address] [place], [place] [id number], [id number] * (ABNORMAL) POCT glucose (09/07/2024 8:15 AM WAX ROOM SUPERVISOR) GLUCOSE POC 162(H) 70 - 109 09/07/2024 8:19 AM [facility] 09/07/2024 8:15 AM WAX ROOM SUPERVISOR Keyona Miller MD POCT ORDERABLES - DEVICE Final Result [facility] [address] [place] [address], [id number] * (ABNORMAL) POCT ACUTE VENOUS PANEL (09/07/2024 3:47 AM WAX ROOM SUPERVISOR) SODIUM WHOLE BLOOD 159(H) 138 - 146 mmol/L 09/07/2024 4:02 AM [facility] POTASSIUM WHOLE BLOOD 3.8 3.5 - 4.9 mmol/L 09/07/2024 4:02 AM [facility] CA IONIZED WH BLOOD 1.18 1.12 - 1.32 mmol/L 09/07/2024 4:02 AM [facility] POC PH VENOUS 7.371 7.31 - 7.41 09/07/2024 4:02 AM [facility] POC PCO2 VENOUS 54.9(H) 41.0 - 51.0 MMHG 09/07/2024 4:02 AM [facility] POC PO2 VENOUS 35 25 - 40 MMHG 09/07/2024 4:02 AM [facility] POC HCO3 VENOUS 31.9(H) 23 - 28 MMOL/L 09/07/2024 4:02 AM [facility] POC TCO2 VENOUS 34(H) 24 - 29 MMOL/L 09/07/2024 4:02 AM [facility] POC BASE EXCESS VENOUS 7(H) 0 - 3 MMOL/L 09/07/2024 4:02 AM [facility] POC HEMATOCRIT 36(L) 38 - 51 % 09/07/2024 4:02 AM [employer] [facility] TIME TEST WAS PERFORMED: 347 09/07/2024 4:02 AM [facility] 09/07/2024 3:47 AM [employer] RO[employer] SUPERVISOR us eKyona Miller MD POCT ORDERABLES - DEVICE Final Result Performing Organization Address [facility] de Phone Number [facility] [address] [place] [address], [place] [phone] * PHOSPHORUS, INORGANIC PHOSPHATE (09/07/2024 3:42 AM [employer] RO[employer] SUPERVISOR) PHOSPHORUS 3.4 2.5 - 4.9 MG/DL 09/07/2024 4:30 AM [facility] 09/07/2024 3:42 AM [employer] RO[employer] SUPERVISOR us Keyona Miller MD LABORATORY Fi nal Result Performing Organization Address [facility] de Phone Number [facility] [address] [place] [address], [place] [phone] * (ABNORMAL) COMPREHENSIVE METABOLIC PANEL (09/07/2024 3:42 AM [employer] RO[employer] SUPERVISOR) SODIUM S/P/B 157(HH) 136 - 145 MMOL/L 09/07/2024 4:30 AM [facility] Comment: Critical Result(s) Called to and read back by: [email or web address] [id number] at: 04:28:29 ?? 09/07/2024 by EBONY. POTASSIUM S/P/B 3.8 3.5 - 5.1 MMOL/L 09/07/2024 4:30 AM [employer]PER[employer] [facility] CHLORIDE S/P/B 124(H) 97 - 115 MMOL/L 09/07/2024 4:30 AM [facility] CO2 30.4 21.0 - 32.0 MMOL/L 09/07/2024 4:30 AM [facility] GLUCOSE 146(H) 74 - 106 MG/DL 09/07/2024 4:30 AM [facility] BUN 52(H) 7 - 18 MG/DL 09/07/2024 4:30 AM [facility] CREATININE S/P/B 1.78(H) 0.70 - 1.30 MG/DL 09/07/2024 4:30 AM [facility] CALCIUM S/P/B 8.8 8.5 - 10.1 MG/DL 09/07/2024 4:30 AM [facility] BILIRUBIN TOTAL S/P/B 1.2(H) 0.2 - 1.0 MG/DL 09/07/2024 4:30 AM [facility] ALKALINE PHOSPHATASE S/P/B 110 45 - 115 U/L 09/07/2024 4:30 AM [facility] AST 29 15 - 37 U/L 09/07/2024 4:30 AM [facility] ALT 27 16 - 61 U/L 09/07/2024 4:30 AM [facility] TOTAL PROTEIN S/P/B 7.4 6.4 - 8.2 G/DL 09/07/2024 4:30 AM [facility] ALBUMIN S/P/B 2.4(L) 3.4 - 5.0 G/DL 09/07/2024 4:30 AM [facility] ANION GAP 2.6 2.0 - 10.0 MMOL/L 09/07/2024 4:30 AM [facility] OSMOLALITY (CALC) 341 MOSM/KG 025 4:30 AM [facility] Comment:REFERENCE RANGE NOT ESTABLISHED GFR ESTIMATE 41(L) >90 ML/MIN/1. 73 M2 09/07/2024 4:30 AM [facility] GFR NOTES GFR REFERENCE S: 09/07/2024 4:30 AM [employer]PERVISOR [facility] Comment: THE ESTIMATED GFR IS CALCULATED [...] ml/min/1.73 m2 G5,KIDNEY FAILURE: <15 ml/min/1.73 m2 09/07/2024 3:42 AM [employer] RO[employer] SUPERVISOR Keyona Miller MD LABORATORY Fi nal Result Performing Organization Address City/[facility]/ZIP Co de Phone Number [facility] [address] [place] [address], [id number] * (ABNORMAL) MAGNESIUM (09/07/2024 3:42 AM [employer] RO[employer] SUPERVISOR) MAGNESIUM 2.7(H) 1.6 - 2.6 MG/DL 09/07/2024 4:30 AM [employer] SUPERVISOR [facility] 09/07/2024 3:42 AM [employer] RO[employer] SUPERVISOR Keyona Miller MD LABORATORY Fi nal Result Performing Organization Address City/[facility]/ZIP Co de Phone Number [facility] [address] [place] [address], [phone] * (ABNORMAL) PROTIME/INR, VENOUS (09/07/2024 3:42 AM [employer] RO[employer] SUPERVISOR) PROTIME 15.7(H) 9.4 - 12.5 SEC 09/07/2024 4:22 AM [facility] INR 1.4(H) 0.8 - 1.1 09/07/2024 4:22 AM [facility] 09/07/2024 3:42 AM [employer] SUPERVISOR us Keyona Miller MD LABORATORY Fi nal Result [facility] [address] [place] [address], [id number] * (ABNORMAL) CBC W/DIFF AUTOMATED (09/07/2024 3:42 AM WAX ROOM SUPERVISOR) WBC 13.95(H) 4.00 - 10.80 x10'3/uL 09/07/2024 3:57 AM [facility] RBC 4.07(L) 4.50 - 6.10 x10'6/uL 09/07/2024 3:57 AM [facility] HGB 11.5(L) 12.0 - 16.0 G/DL 09/07/2024 3:57 AM [facility] HCT 39.2 37.0 - 52.0 % 09/07/2024 3:57 AM [facility] MCV 96.3 78.0 - 100.0 FL 09/07/2024 3:57 AM [facility] MCH 28.3 27.0 - 31.0 PG 09/07/2024 3:57 AM [facility] MCHC 29.3(L) 33.0 - 36.0 G/DL 09/07/2024 3:57 AM [facility] RDW 16.0(H) 11.5 - 14.5 % 09/07/2024 3:57 AM [facility] PLT 109(L) 150 - 350 x10'3/uL 09/07/2024 3:57 AM [facility] MPV 12.5(H) 7.4 - 10.4 FL 09/07/2024 3:57 AM [facility] DIFFERENTIAL TYPE AUTOMATED DIFFERENTIAL 09/07/2024 3:57 AM [facility] SEG NEUTROPHILS 87.3 % 3:57 AM [facility] LYMPHOCYTES 4.2 % 09/07/2024 3:57 AM [facility] MONOCYTES 7.5 % 09/07/2024 3:57 AM [facility] EOSINOPHILS 0.0 % 09/07/2024 3:57 AM [facility] BASOPHILS 0.1 % 09/07/2024 3:57 AM [facility] IMMATURE GRANS % 0.9 % 09/07/19 3:57 AM [facility] ABS. NEUTROPHILS 12.17(H) 1.60 - 8.30 x10'3/uL 09/07/2024 3:57 AM [facility] ABS. LYMPHOCYTES 0.58(L) 0.80 - 4.70 x10'3/uL 09/07/2024 3:57 AM [facility] ABS. MONOCYTES 1.05 0.00 - 1.50 x10'3/uL 09/07/2024 3:57 AM [facility] ABS. EOSINOPHILS 0.00 0.00 - 0.40 x10'3/uL 09/07/2024 3:57 AM [facility] ABS. BASOPHILS 0.02 0.00 - 0.20 x10'3/uL 09/07/2024 3:57 AM [facility] ABS. IMMATURE GRANULOCYTES 0.13(H) 0.00 - 0.03 x10'3/uL 09/07/2024 3:57 AM [facility] ABS. NUCLEATED RBC'S 0.00 0.00 - 0.01 x10'3/uL 09/07/2024 3:57 AM [facility] NRBC % 0.0 % 09/07/2024 3:57 AM WAX ROOM SUPERVISOR [facility] 09/07/2024 3:42 AM WAX ROOM SUPERVISOR us Keyona Miller MD LABORATORY Fi nal Result Performing Organization Address [facility] Co de Phone Number [facility] [address] [place] [address], [place] [phone] * (ABNORMAL) POCT glucose (09/06/2024 11:44 PM WAX ROOM SUPERVISOR) GLUCOSE POC 151(H) 70 - 109 09/06/2024 11:49 PM WAX ROOM SUPERVISOR [facility] Comment:RN Notified 09/06/2024 11:4 4 PM WAX ROOM SUPERVISOR us Keyona Miller MD POCT ORDERABLES - DEVICE Final Result Performing Organization Address [facility] Co de Phone Number [facility] [address] [place] [address], [place] [phone] * POCT glucose (09/06/2024 8:47 PM WAX ROOM SUPERVISOR) GLUCOSE POC 81 70 - 109 09/06/2024 8:50 PM WAX ROOM SUPERVISOR [facility] 09/06/2024 8:47 PM WAX ROOM SUPERVISOR us Keyona Miller MD POCT ORDERABLES - DEVICE Final Result Performing Organization Address [facility] de Phone Number [facility] [address] [place] [address], [place] [phone] * (ABNORMAL) BASIC METABOLIC PANEL (09/06/2024 8:30 PM WAX ROOM SUPERVISOR) SODIUM S/P/B 157(HH) 136 - 145 MMOL/L 09/06/2024 9:30 PM [facility] Comment: Critical Result(s) Called to and read back by: YUNI [id number] at: 21:29:28 ?? 09/06/2024 by ROMAN. POTASSIUM S/P/B 4.1 3.5 - 5.1 MMOL/L 09/06/2024 9:30 PM [facility] CHLORIDE S/P/B 125(H) 97 - 115 MMOL/L 09/06/2024 9:30 PM [facility] CO2 30.4 21.0 - 32.0 MMOL/L 09/06/2024 9:30 PM [facility] GLUCOSE 85 74 - 106 MG/DL 09/06/2024 9:30 PM [facility] BUN 59(H) 7 - 18 MG/DL 09/06/2024 9:30 PM [facility] CREATININE S/P/B 1.83(H) 0.70 - 1.30 MG/DL 09/06/2024 9:30 PM [facility] CALCIUM S/P/B 8.8 8.5 - 10.1 MG/DL 09/06/2024 9:30 PM [facility] ANION GAP 1.6(L) 2.0 - 10.0 MMOL/L 09/06/2024 9:30 PM [facility] OSMOLALITY (CALC) 340 MOSM/KG 025 9:30 PM [facility] Comment:REFERENCE RANGE NOT ESTABLISHED GFR ESTIMATE 39(L) >90 ML/MIN/1. 73 M2 09/06/2024 9:30 PM [facility] GFR NOTES GFR REFERENCE S: 09/06/2024 9:30 PM [facility] Comment: THE ESTIMATED GFR IS [...] ml/min/1.73 m2 G5,KIDNEY FAILURE: <15 ml/min/1.73 m2 09/06/2024 8:30 PM WAX ROOM SUPERVISOR us Keyona Miller MD LABORATORY Fi nal Result Performing Organization Address [facility] Co de Phone Number [facility] [address] [place] [address], [place] [phone] * POCT glucose (09/06/2024 4:52 PM WAX ROOM SUPERVISOR) GLUCOSE POC 78 70 - 109 09/06/2024 9:41 PM WAX ROOM SUPERVISOR [facility] 09/06/2024 4:52 PM WAX ROOM SUPERVISOR us Keyona Miller MD POCT ORDERABLES - DEVICE Final Result Performing Organization Address [facility] de Phone Number [facility] [address] [place] [address], [place] [phone] * (ABNORMAL) POCT glucose (09/06/2024 3:54 PM WAX ROOM SUPERVISOR) GLUCOSE POC 58(L) 70 - 109 09/06/2024 9:41 PM WAX ROOM SUPERVISOR [facility] 09/06/2024 3:54 PM WAX ROOM SUPERVISOR us Keyona Miller MD POCT ORDERABLES - DEVICE Final Result Performing Organization Address [facility] Co de Phone Number [facility] [address] [place] [address], [place] [phone] * Vancomycin Random Level (09/06/2024 12:49 PM WAX ROOM SUPERVISOR) Pathologist [facility] VANCOMYCIN RANDOM 19.5 MCG/ML 09/06/2024 2:42 PM WAX ROOM SUPERVISOR [facility] Comment:REFERENCE RANGE NOT ESTABLISHED 09/06/2024 12:4 9 PM WAX ROOM SUPERVISOR Keyona Miller MD LABORATORY Fi nal Result [facility] [address] [place] [address], [id number] * (ABNORMAL) BASIC METABOLIC PANEL (09/06/2024 12:49 PM WAX ROOM SUPERVISOR) [facility] SODIUM S/P/B 158(HH) 136 - 145 MMOL/L 09/06/2024 2:51 PM WAX ROOM SUPERVISOR [facility] Comment: Critical Result(s) Called to and read back by: YUNI [id number] at: 14:49:49 ?? 09/06/2024 by ANTHONY. POTASSIUM S/P/B 3.5 3.5 - 5.1 MMOL/L 09/06/2024 2:51 PM WAX ROOM SUPERVISOR [facility] CHLORIDE S/P/B 124(H) 97 - 115 MMOL/L 09/06/2024 2:51 PM [facility] CO2 32.0 21.0 - 32.0 MMOL/L 09/06/2024 2:51 PM WAX ROOM SUPERVISOR [facility] GLUCOSE 70(L) 74 - 106 MG/DL 09/06/2024 2:51 PM WAX ROOM SUPERVISOR [facility] BUN 63(H) 7 - 18 MG/DL 09/06/2024 2:51 PM [facility] CREATININE S/P/B 1.97(H) 0.70 - 1.30 MG/DL 09/06/2024 2:51 PM [facility] CALCIUM S/P/B 8.7 8.5 - 10.1 MG/DL 09/06/2024 2:51 PM WAX ROOM SUPERVISOR [facility] ANION GAP 2.0 2.0 - 10.0 MMOL/L 09/06/2024 2:51 PM WAX ROOM SUPERVISOR [facility] OSMOLALITY (CALC) 342 MOSM/KG 025 2:51 PM WAX ROOM SUPERVISOR [facility] Comment:REFERENCE RANGE NOT ESTABLISHED GFR ESTIMATE 36(L) >90 ML/MIN/1. 73 M2 09/06/2024 2:51 PM WAX ROOM SUPERVISOR [facility] GFR NOTES GFR REFERENCE S: 09/06/2024 2:51 PM WAX ROOM SUPERVISOR [facility] Comment: THE ESTIMATED GFR IS CALCULATED [...] ml/min/1.73 m2 G5,KIDNEY FAILURE: <15 ml/min/1.73 m2 09/06/2024 12:4 9 PM WAX ROOM SUPERVISOR us Keyona Miller MD LABORATORY Fi nal Result [facility] [address] [place] [address], [phone] * (ABNORMAL) POCT glucose (09/06/2024 11:35 AM WAX ROOM SUPERVISOR) GLUCOSE POC 127(H) 70 - 109 09/06/2024 11:47 AM WAX ROOM SUPERVISOR [facility] 09/06/2024 11:3 5 AM WAX ROOM SUPERVISOR us Keyona Miller MD POCT ORDERABLES - DEVICE Final Result Performing Organization Address [facility] de Phone Number [facility] [address] [place] [address], [id number] * (ABNORMAL) POCT glucose (09/06/2024 8:59 AM WAX ROOM SUPERVISOR) GLUCOSE POC 176(H) 70 - 109 09/06/2024 10:05 AM WAX ROOM SUPERVISOR [facility] 09/06/2024 8:59 AM WAX ROOM SUPERVISOR us Keyona Miller MD POCT ORDERABLES - DEVICE Final Result Performing Organization Address [facility] de Phone Number [facility] [address] [place] [address], [phone] * (ABNORMAL) PROTIME/INR, VENOUS (09/06/2024 8:30 AM WAX ROOM SUPERVISOR) PROTIME 19.8(H) 9.4 - 12.5 SEC 09/06/2024 9:45 AM WAX ROOM SUPERVISOR [facility] INR 1.7(H) 0.8 - 1.1 09/06/2024 9:45 AM WAX ROOM SUPERVISOR [facility] 09/06/2024 8:30 AM WAX ROOM SUPERVISOR us Keyona Miller MD LABORATORY Fi nal Result Performing Organization Address [facility] de Phone Number [facility] [address] [place] [address], [id number] * XR CHEST PORTABLE (09/06/2024 5:21 AM WAX ROOM SUPERVISOR) Anatomical Region Laterality Modality Chest Radiographic Stephie ging 09/06/2024 5:35 AM WAX ROOM SUPERVISOR Impressions 09/06/2024 5:37 AM WAX ROOM SUPERVISOR IMPRESSION: 1. ??SLIGHT INTERVAL INCREASE IN PULMONARY VASCULAR CONGESTION AND EDEMA. Signed: Rigoberto Calderon MD Referred By: PROVIDER NON-STAFF Interpreted By: Rigoberto Calderon MD, 09/06/2024 5:35 AM Narrative 09/06/2024 5:37 AM WAX ROOM SUPERVISOR [address] [address] PATIENT NAME: OBIE SIMS EXAM: Chest one view DATE OF EXAM: 09/06/2024 COMPARISON EXAM: 09/05/2024 INDICATION: CHF TECHNIQUE: AP chest FINDINGS: Post midline sternotomy changes are noted. ??Endotracheal tube, NG tube and right arm PICC line placements are unchanged. ??Shallow inspiration with mild cardiomegaly similar to previous study. ??Slight interval increase in pulmonary vascular congestion and edema compared to previous study. ??No new airspace consolidation. ??No evidence of pneumothorax. Procedure Note Rigoberto Calderon MD - 09/06/[address] [address] PATIENT NAME: OBIE SIMS EXAM: Chest one view DATE OF EXAM: 09/06/2024 COMPARISON EXAM: 09/05/2024 INDICATION: CHF TECHNIQUE: AP chest FINDINGS: Post midline sternotomy changes are noted. Endotracheal tube,NG tube and right arm PICC line placements are unchanged. Shallowinspiration with mild cardiomegaly similar to previous study. Slightinterval increase in pulmonary vascular congestion and edema compared toprevious study. No new airspace consolidation. No evidence ofpneumothorax. IMPRESSION: 1. SLIGHT INTERVAL INCREASE IN PULMONARY VASCULAR CONGESTION AND EDEMA. Signed: Rigoberto Calderon MD Referred By: PROVIDER NON-STAFF Interpreted By: Rigoberto Calderon MD, 09/06/2024 5:35 AM us Keyona Miller MD GENERAL IMAGING Fi nal Result * (ABNORMAL) POCT ACUTE VENOUS PANEL (09/06/2024 4:41 AM WAX ROOM SUPERVISOR) SODIUM WHOLE BLOOD 156(H) 138 - 146 mmol/L 09/06/2024 4:49 AM [facility] POTASSIUM WHOLE BLOOD 3.8 3.5 - 4.9 mmol/L 09/06/2024 4:49 AM [facility] CA IONIZED WH BLOOD 1.22 1.12 - 1.32 mmol/L 09/06/2024 4:49 AM [facility] POC PH VENOUS 7.479(H) 7.31 - 7.41 09/06/2024 4:49 AM [facility] POC PCO2 VENOUS 43.5 41.0 - 51.0 MMHG 09/06/2024 4:49 AM [facility] POC PO2 VENOUS 70(H) 25 - 40 MMHG 09/06/2024 4:49 AM [facility] POC HCO3 VENOUS 32.3(H) 23 - 28 MMOL/L 09/06/2024 4:49 AM [facility] POC TCO2 VENOUS 34(H) 24 - 29 MMOL/L 09/06/2024 4:49 AM [facility] POC BASE EXCESS VENOUS 9(H) 0 - 3 MMOL/L 09/06/2024 4:49 AM [facility] POC HEMATOCRIT 36(L) 38 - 51 % 09/06/2024 4:49 AM [facility] TIME TEST WAS PERFORMED: 441 09/06/2024 4:49 AM [facility] 09/06/2024 4:41 AM WAX ROOM SUPERVISOR us Keyona Miller MD POCT ORDERABLES - DEVICE Final Result [facility] [address] [place] [address], [id number] * (ABNORMAL) POCT glucose (09/06/2024 4:37 AM WAX ROOM SUPERVISOR) Pathologist [facility] GLUCOSE POC 172(H) 70 - 109 09/06/2024 4:40 AM WAX ROOM SUPERVISOR [facility] 09/06/2024 4:37 AM WAX ROOM SUPERVISOR us Keyona Miller MD POCT ORDERABLES - DEVICE Final Result Performing Organization Address [facility] Co de Phone Number [facility] [address] [place] [address], [place] [phone] * (ABNORMAL) MAGNESIUM (09/06/2024 4:30 AM WAX ROOM SUPERVISOR) [facility] MAGNESIUM 2.8(H) 1.6 - 2.6 MG/DL 09/06/2024 5:17 AM WAX ROOM SUPERVISOR [facility] 09/06/2024 4:30 AM WAX ROOM SUPERVISOR us Keyona Miller MD LABORATORY Fi nal Result Performing Organization Address [facility] de Phone Number [facility] [address] [place] [address], [place] [phone] * (ABNORMAL) CBC W/DIFF AUTOMATED (09/06/2024 4:30 AM WAX ROOM SUPERVISOR) Pathologist [facility] WBC 13.94(H) 4.00 - 10.80 x10'3/uL 09/06/2024 5:01 AM [facility] RBC 4.09(L) 4.50 - 6.10 x10'6/uL 09/06/2024 5:01 AM [facility] HGB 11.7(L) 12.0 - 16.0 G/DL 09/06/2024 5:01 AM [facility] HCT 38.6 37.0 - 52.0 % 09/06/2024 5:01 AM [facility] MCV 94.4 78.0 - 100.0 FL 09/06/2024 5:01 AM [facility] MCH 28.6 27.0 - 31.0 PG 09/06/2024 5:01 AM [facility] MCHC 30.3(L) 33.0 - 36.0 G/DL 09/06/2024 5:01 AM [facility] RDW 16.1(H) 11.5 - 14.5 % 09/06/2024 5:01 AM [facility] PLT 112(L) 150 - 350 x10'3/uL 09/06/2024 5:01 AM [facility] MPV 12.6(H) 7.4 - 10.4 FL 09/06/2024 5:01 AM [facility] DIFFERENTIAL TYPE AUTOMATED DIFFERENTIAL 09/06/2024 5:01 AM [facility] SEG NEUTROPHILS 85.5 % 5:01 AM [facility] LYMPHOCYTES 6.0 % 09/06/2024 5:01 AM [facility] MONOCYTES 7.1 % 09/06/2024 5:01 AM [facility] EOSINOPHILS 0.1 % 09/06/2024 5:01 AM [facility] BASOPHILS 0.1 % 09/06/2024 5:01 AM [facility] IMMATURE GRANS % 1.2 % 09/06/19 5:01 AM [facility] ABS. NEUTROPHILS 11.92(H) 1.60 - 8.30 x10'3/uL 09/06/2024 5:01 AM [facility] ABS. LYMPHOCYTES 0.83 0.80 - 4.70 x10'3/uL 09/06/2024 5:01 AM [facility] ABS. MONOCYTES 0.99 0.00 - 1.50 x10'3/uL 09/06/2024 5:01 AM [facility] ABS. EOSINOPHILS 0.01 0.00 - 0.40 x10'3/uL 09/06/2024 5:01 AM [facility] ABS. BASOPHILS 0.02 0.00 - 0.20 x10'3/uL 09/06/2024 5:01 AM [facility] ABS. IMMATURE GRANULOCYTES 0.17(H) 0.00 - 0.03 x10'3/uL 09/06/2024 5:01 AM [facility] ABS. NUCLEATED RBC'S 0.00 0.00 - 0.01 x10'3/uL 09/06/2024 5:01 AM [facility] NRBC % 0.0 % 09/06/2024 5:01 AM [facility] 09/06/2024 4:30 AM WAX ROOM SUPERVISOR Keyona Miller MD LABORATORY Fi nal Result Performing Organization Address City/[facility]/ZIP Co de Phone Number [facility] [address] [place] [address], [id number] * PHOSPHORUS, INORGANIC PHOSPHATE (09/06/2024 4:30 AM WAX ROOM SUPERVISOR) PHOSPHORUS 3.1 2.5 - 4.9 MG/DL 09/06/2024 5:17 AM [facility] 09/06/2024 4:30 AM WAX ROOM SUPERVISOR Juan Francisco Rubi MD LABORATORY Final Result Performing Organization Address [facility]/ZIP Co de Phone Number [facility] [address] [place] [address], [phone] * (ABNORMAL) COMPREHENSIVE METABOLIC PANEL (09/06/2024 4:30 AM WAX ROOM SUPERVISOR) SODIUM S/P/B 153(H) 136 - 145 MMOL/L 09/06/2024 5:17 AM [facility] POTASSIUM S/P/B 3.8 3.5 - 5.1 MMOL/L 09/06/2024 5:17 AM [facility] CHLORIDE S/P/B 120(H) 97 - 115 MMOL/L 09/06/2024 5:17 AM [facility] CO2 31.6 21.0 - 32.0 MMOL/L 09/06/2024 5:17 AM [facility] GLUCOSE 189(H) 74 - 106 MG/DL 09/06/2024 5:17 AM [facility] BUN 68(H) 7 - 18 MG/DL 09/06/2024 5:17 AM [facility] CREATININE S/P/B 2.16(H) 0.70 - 1.30 MG/DL 09/06/2024 5:17 AM [facility] CALCIUM S/P/B 9.8 8.5 - 10.1 MG/DL 09/06/2024 5:17 AM [facility] BILIRUBIN TOTAL S/P/B 1.1(H) 0.2 - 1.0 MG/DL 09/06/2024 5:17 AM [facility] ALKALINE PHOSPHATASE S/P/B 109 45 - 115 U/L 09/06/2024 5:17 AM [facility] AST 29 15 - 37 U/L 09/06/2024 5:17 AM [facility] ALT 28 16 - 61 U/L 09/06/2024 5:17 AM [facility] TOTAL PROTEIN S/P/B 7.3 6.4 - 8.2 G/DL 09/06/2024 5:17 AM [facility] ALBUMIN S/P/B 2.3(L) 3.4 - 5.0 G/DL 09/06/2024 5:17 AM [facility] ANION GAP 1.4(L) 2.0 - 10.0 MMOL/L 09/06/2024 5:17 AM WAX ROOM SUPERVISOR [facility] OSMOLALITY (CALC) 341 MOSM/KG 025 5:17 AM WAX ROOM SUPERVISOR [facility] Comment:REFERENCE RANGE NOT ESTABLISHED GFR ESTIMATE 32(L) >90 ML/MIN/1. 73 M2 09/06/2024 5:17 AM WAX ROOM SUPERVISOR [facility] GFR NOTES GFR REFERENCE S: 09/06/2024 5:17 AM WAX ROOM SUPERVISOR [facility] Comment: THE ESTIMATED GFR IS CALCULATED [...] ml/min/1.73 m2 G5,KIDNEY FAILURE: <15 ml/min/1.73 m2 09/06/2024 4:30 AM WAX ROOM SUPERVISOR Juan Francisco Rubi MD LABORATORY Final Result Performing Organization Address [facility] Co de Phone Number [facility] [address] [place] [address], [phone] * (ABNORMAL) POCT glucose (09/06/2024 12:20 AM WAX ROOM SUPERVISOR) GLUCOSE POC 177(H) 70 - 109 09/06/2024 12:22 AM WAX ROOM SUPERVISOR [facility] 09/06/2024 12:2 0 AM WAX ROOM SUPERVISOR Keyona Miller MD POCT ORDERABLES - DEVICE Final Result Performing Organization Address [facility] Co de Phone Number [facility] [address] [place] [address], [place] [phone] * (ABNORMAL) POCT glucose (09/05/2024 8:08 PM WAX ROOM SUPERVISOR) Pathologist [facility] GLUCOSE POC 206(H) 70 - 109 09/05/2024 8:09 PM WAX ROOM SUPERVISOR [facility] 09/05/2024 8:08 PM WAX ROOM SUPERVISOR Keyona Miller MD POCT ORDERABLES - DEVICE Final Result [facility] [address] [place] [address], [place] [phone] * (ABNORMAL) BASIC METABOLIC PANEL (09/05/2024 8:00 PM WAX ROOM SUPERVISOR) [facility] SODIUM S/P/B 154(H) 136 - 145 MMOL/L 09/05/2024 8:50 PM [facility] POTASSIUM S/P/B 4.2 3.5 - 5.1 MMOL/L 09/05/2024 8:50 PM [facility] CHLORIDE S/P/B 121(H) 97 - 115 MMOL/L 09/05/2024 8:50 PM [facility] CO2 30.9 21.0 - 32.0 MMOL/L 09/05/2024 8:50 PM [facility] GLUCOSE 230(H) 74 - 106 MG/DL 09/05/2024 8:50 PM [facility] BUN 70(H) 7 - 18 MG/DL 09/05/2024 8:50 PM [facility] CREATININE S/P/B 2.52(H) 0.70 - 1.30 MG/DL 09/05/2024 8:50 PM [facility] CALCIUM S/P/B 9.2 8.5 - 10.1 MG/DL 09/05/2024 8:50 PM [facility] ANION GAP 2.1 2.0 - 10.0 MMOL/L 09/05/2024 8:50 PM WAX ROOM SUPERVISOR [facility] OSMOLALITY (CALC) 346 MOSM/KG 025 8:50 PM WAX ROOM SUPERVISOR [facility] Comment:REFERENCE RANGE NOT ESTABLISHED GFR ESTIMATE 27(L) >90 ML/MIN/1. 73 M2 09/05/2024 8:50 PM WAX ROOM SUPERVISOR [facility] GFR NOTES GFR REFERENCE S: 09/05/2024 8:50 PM WAX ROOM SUPERVISOR [facility] Comment: THE ESTIMATED GFR IS CALCULATED [...] ml/min/1.73 m2 G5,KIDNEY FAILURE: <15 ml/min/1.73 m2 09/05/2024 8:00 PM WAX ROOM SUPERVISOR us Keyona Miller MD LABORATORY Fi nal Result Performing Organization Address [facility] Co de Phone Number [facility] [address] [place] [address], [phone] * (ABNORMAL) POCT glucose (09/05/2024 5:05 PM WAX ROOM SUPERVISOR) GLUCOSE POC 226(H) 70 - 109 09/05/2024 5:08 PM WAX ROOM SUPERVISOR [facility] 09/05/2024 5:05 PM WAX ROOM SUPERVISOR us Keyona Miller MD POCT ORDERABLES - DEVICE Final Result Performing Organization Address [facility] Co de Phone Number [facility] [address] [place] [address], [place] [phone] * (ABNORMAL) POCT ACUTE VENOUS PANEL (09/05/2024 11:17 AM WAX ROOM SUPERVISOR) SODIUM WHOLE BLOOD 156(H) 138 - 146 mmol/L 09/05/2024 11:18 AM [facility] POTASSIUM WHOLE BLOOD 2.8(L) 3.5 - 4.9 mmol/L 09/05/2024 11:18 AM WAX ROOM SUPERVISOR [facility] CA IONIZED WH BLOOD 0.77(L) 1.12 - 1.32 mmol/L 09/05/2024 11:18 AM WAX ROOM SUPERVISOR [facility] POC PH VENOUS 7.333 7.31 - 7.41 09/05/2024 11:18 AM [facility] POC PCO2 VENOUS 50.4 41.0 - 51.0 MMHG 09/05/2024 11:18 AM [facility] POC PO2 VENOUS 39 25 - 40 MMHG 09/05/2024 11:18 AM WAX ROOM SUPERVISOR [facility] POC HCO3 VENOUS 26.7 23 - 28 MMOL/L 09/05/2024 11:18 AM [facility] POC TCO2 VENOUS 28 24 - 29 MMOL/L 09/05/2024 11:18 AM [facility] POC BASE EXCESS VENOUS 1 0 - 3 MMOL/L 09/05/2024 11:18 AM [facility] POC HEMATOCRIT 33(L) 38 - 51 % 09/05/2024 11:18 AM [facility] TIME TEST WAS PERFORMED: 1117 09/05/2024 11:18 AM [facility] 09/05/2024 11:1 7 AM WAX ROOM SUPERVISOR us Keyona Miller MD POCT ORDERABLES - DEVICE Final Result [facility] [address] [place] [address], [phone] * (ABNORMAL) POCT glucose (09/05/2024 11:15 AM WAX ROOM SUPERVISOR) [facility] GLUCOSE POC 159(H) 70 - 109 09/05/2024 11:18 AM WAX ROOM SUPERVISOR [facility] 09/05/2024 11:1 5 AM WAX ROOM SUPERVISOR Keyona Miller MD POCT ORDERABLES - DEVICE Final Result [facility] [address] [place] [address], [phone] * (ABNORMAL) BASIC METABOLIC PANEL (09/05/2024 11:10 AM WAX ROOM SUPERVISOR) [facility] SODIUM S/P/B 150(H) 136 - 145 MMOL/L 09/05/2024 12:32 PM [facility] POTASSIUM S/P/B 2.8(LL) 3.5 - 5.1 MMOL/L 09/05/2024 12:32 PM [facility] Comment: Critical Result(s) Called to and read back by: ??[id number] RN ??at: 12:31:00 ?? 09/05/2024 by CALEB. CHLORIDE S/P/B 113 97 - 115 MMOL/L 09/05/2024 12:32 PM [facility] CO2 25.6 21.0 - 32.0 MMOL/L 09/05/2024 12:32 PM [facility] GLUCOSE 177(H) 74 - 106 MG/DL 09/05/2024 12:32 PM [facility] BUN 53(H) 7 - 18 MG/DL 09/05/2024 12:32 PM [facility] CREATININE S/P/B 1.92(H) 0.70 - 1.30 MG/DL 09/05/2024 12:32 PM [facility] CALCIUM S/P/B 6.3(LL) 8.5 - 10.1 MG/DL 09/05/2024 12:32 PM [facility] Comment: Critical Result(s) Called to and read back by: [id number] YUNI at: 12:31:21 ?? 09/05/2024 by CALEB. ANION GAP 11.4(H) 2.0 - 10.0 MMOL/L 09/05/2024 12:32 PM [facility] OSMOLALITY (CALC) 329 MOSM/KG 025 12:32 PM [facility] Comment:REFERENCE RANGE NOT ESTABLISHED GFR ESTIMATE 37(L) >90 ML/MIN/1. 73 M2 09/05/2024 12:32 PM [facility] GFR NOTES GFR REFERENCE S: 09/05/2024 12:32 PM [facility] Comment: THE ESTIMATED GFR IS [...] ml/min/1.73 m2 G5,KIDNEY FAILURE: <15 ml/min/1.73 m2 09/05/2024 11:1 0 AM WAX ROOM SUPERVISOR us Keyona Miller MD LABORATORY Fi nal Result [facility] [address] [place] [address], [id number] * Vancomycin Random Level (09/05/2024 11:10 AM WAX ROOM SUPERVISOR) VANCOMYCIN RANDOM 14.5 MCG/ML 09/05/2024 12:14 PM WAX ROOM SUPERVISOR [facility] Comment:REFERENCE RANGE NOT ESTABLISHED 09/05/2024 11:1 0 AM WAX ROOM SUPERVISOR us Keyona Miller MD LABORATORY Fi nal Result Performing Organization Address [facility] Co de Phone Number [facility] [address] [place] [address], [place] [phone] * (ABNORMAL) PROTIME/INR, VENOUS (09/05/2024 8:50 AM WAX ROOM SUPERVISOR) PROTIME 26.2(H) 9.4 - 12.5 SEC 09/05/2024 9:44 AM WAX ROOM SUPERVISOR [facility] INR 2.2(H) 0.8 - 1.1 09/05/2024 9:44 AM WAX ROOM SUPERVISOR [facility] 09/05/2024 8:50 AM WAX ROOM SUPERVISOR us Keyona Miller MD LABORATORY Fi nal Result Performing Organization Address [facility] de Phone Number [facility] [address] [place] [address], [place] [phone] * (ABNORMAL) POCT glucose (09/05/2024 8:32 AM WAX ROOM SUPERVISOR) GLUCOSE POC 196(H) 70 - 109 09/05/2024 8:58 AM WAX ROOM SUPERVISOR [facility] 09/05/2024 8:32 AM WAX ROOM SUPERVISOR us Keyona Miller MD POCT ORDERABLES - DEVICE Final Result Performing Organization Address [facility] Co de Phone Number [facility] [address] [place] [address], [place] [phone] * CULTURE, RESPIRATORY W/ GRAM STAIN (09/05/2024 7:40 AM WAX ROOM SUPERVISOR) SPEC DESCRIPTION TRACHEAL ASPIRATE 09/05/2024 7:40 AM WAX ROOM SUPERVISOR [facility] SPECIAL REQUESTS NO SPECIAL REQUEST 09/05/2024 7:40 AM WAX ROOM SUPERVISOR [facility] GRAM STAIN RESULT <10 EPITHELIAL CELLS PER LPF 09/05/2024 9:53 AM WAX ROOM SUPERVISOR [facility] GRAM STAIN RESULT >25 NEUTROPHILS PER LPF 09/05/2024 9:53 AM WAX ROOM SUPERVISOR [facility] GRAM STAIN RESULT NO ORGANISMS SEEN 09/05/2024 9:53 AM WAX ROOM SUPERVISOR [facility] CULTURE RESULT NO GROWTH 5 DAYS 09/10/2024 10:31 AM WAX ROOM SUPERVISOR [facility] SPECIMEN FROM TRACHEA OBTAINED BY ASPIRATION / Unknown 09/05/2024 7:40 AM WAX ROOM SUPERVISOR 09/05/2024 7:51 AM WAX ROOM SUPERVISOR Jean Lindsay MD MICROBIOLOGY - GENERAL ORDER [place] [address], [id number] * XR CHEST PORTABLE (09/05/2024 4:58 AM WAX ROOM SUPERVISOR) Anatomical Region Laterality Modality Chest Radiographic Stephie ging 09/05/2024 5:11 AM WAX ROOM SUPERVISOR Impressions 09/05/2024 5:13 AM WAX ROOM SUPERVISOR IMPRESSION: 1. ??NO SIGNIFICANT INTERVAL CHANGE. Signed: Rigoberto Calderon MD Referred By: PROVIDER NON-STAFF Interpreted By: Rigoberto Calderon MD, 09/05/2024 5:11 AM Narrative 09/05/2024 5:13 AM WAX ROOM SUPERVISOR [facility] [address] [place] [address] PATIENT NAME: OBIE SIMS EXAM: Chest one view DATE OF EXAM: 09/05/2024 COMPARISON EXAM: 09/04/2024 INDICATION: CHF exacerbation, mechanical ventilation TECHNIQUE: AP chest FINDINGS: Shallow inspiration. ??Post midline sternotomy changes are noted. ??Endotracheal tube in place with tube tip projecting over the trachea 1 cm above the ryan. ??NG tube extends to stomach. ??There is persistent mild cardiomegaly with mild Central pulmonary vascular congestion and interstitial edema unchanged. ??No new focal areas of airspace consolidation. ??No pleural effusion. ??No evidence of pneumothorax. Procedure Note Rigoberto Calderon MD - 09/05/[address] [address] PATIENT NAME: OBIE SIMS EXAM: Chest one view DATE OF EXAM: 09/05/2024 COMPARISON EXAM: 09/04/2024 INDICATION: CHF exacerbation, mechanical ventilation TECHNIQUE: AP chest FINDINGS: Shallow inspiration. Post midline sternotomy changes are noted.Endotracheal tube in place with tube tip projecting over the trachea 1 cmabove the ryan. NG tube extends to stomach. There is persistent mildcardiomegaly with mild Central pulmonary vascular congestion andinterstitial edema unchanged. No new focal areas of airspaceconsolidation. No pleural effusion. No evidence of pneumothorax. IMPRESSION: 1. NO SIGNIFICANT INTERVAL CHANGE. Signed: Rigoberto Calderon MD Referred By: PROVIDER NON-STAFF Interpreted By: Rigoberto Calderon MD, 09/05/2024 5:11 AM Keyona Miller MD GENERAL IMAGING Fi nal Result * (ABNORMAL) POCT ACUTE VENOUS PANEL (09/05/2024 4:12 AM WAX ROOM SUPERVISOR) SODIUM WHOLE BLOOD 155(H) 138 - 146 mmol/L 09/05/2024 4:13 AM WAX ROOM SUPERVISOR [facility] POTASSIUM WHOLE BLOOD 3.2(L) 3.5 - 4.9 mmol/L 09/05/2024 4:13 AM WAX ROOM SUPERVISOR [facility] CA IONIZED WH BLOOD 1.14 1.12 - 1.32 mmol/L 09/05/2024 4:13 AM WAX ROOM SUPERVISOR [facility] POC PH VENOUS 7.506(H) 7.31 - 7.41 09/05/2024 4:13 AM [facility] POC PCO2 VENOUS 42.7 41.0 - 51.0 MMHG 09/05/2024 4:13 AM [facility] POC PO2 VENOUS 65(H) 25 - 40 MMHG 09/05/2024 4:13 AM [facility] POC HCO3 VENOUS 33.8(H) 23 - 28 MMOL/L 09/05/2024 4:13 AM [facility] POC TCO2 VENOUS 35(H) 24 - 29 MMOL/L 09/05/2024 4:13 AM [facility] POC BASE EXCESS VENOUS 11(H) 0 - 3 MMOL/L 09/05/2024 4:13 AM [facility] POC HEMATOCRIT 40 38 - 51 % 09/05/2024 4:13 AM WAX ROOM SUPERVISOR [facility] TIME TEST WAS PERFORMED: 412 09/05/2024 4:13 AM WAX ROOM SUPERVISOR [facility] 09/05/2024 4:12 AM WAX ROOM SUPERVISOR us Keyona Miller MD POCT ORDERABLES - DEVICE Final Result Performing Organization Address [facility] de Phone Number [facility] [address] [place] [address], [phone] * (ABNORMAL) POCT glucose (09/05/2024 4:11 AM WAX ROOM SUPERVISOR) GLUCOSE POC 174(H) 70 - 109 09/05/2024 4:13 AM WAX ROOM SUPERVISOR [facility] 09/05/2024 4:11 AM WAX ROOM SUPERVISOR us Keyona Miller MD POCT ORDERABLES - DEVICE Final Result Performing Organization Address [facility]/ZIP Co de Phone Number [facility] [address] [place] [address], [phone] * MAGNESIUM (09/05/2024 4:00 AM WAX ROOM SUPERVISOR) [facility] MAGNESIUM 2.6 1.6 - 2.6 MG/DL 09/05/2024 4:58 AM WAX ROOM SUPERVISOR [facility] 09/05/2024 4:00 AM WAX ROOM SUPERVISOR Keyona Miller MD LABORATORY Fi nal Result Performing Organization Address [facility] Co de Phone Number [facility] [address] [place] [address], [phone] * (ABNORMAL) CBC W/DIFF AUTOMATED (09/05/2024 4:00 AM WAX ROOM SUPERVISOR) [facility] WBC 19.33(H) 4.00 - 10.80 x10'3/uL 09/05/2024 4:46 AM [facility] RBC 4.30(L) 4.50 - 6.10 x10'6/uL 09/05/2024 4:46 AM [facility] HGB 12.3 12.0 - 16.0 G/DL 09/05/2024 4:46 AM [facility] HCT 39.5 37.0 - 52.0 % 09/05/2024 4:46 AM [facility] MCV 91.9 78.0 - 100.0 FL 09/05/2024 4:46 AM [facility] MCH 28.6 27.0 - 31.0 PG 09/05/2024 4:46 AM [facility] MCHC 31.1(L) 33.0 - 36.0 G/DL 09/05/2024 4:46 AM [facility] RDW 15.9(H) 11.5 - 14.5 % 09/05/2024 4:46 AM [facility] PLT 137(L) 150 - 350 x10'3/uL 09/05/2024 4:46 AM [facility] MPV 12.9(H) 7.4 - 10.4 FL 09/05/2024 4:46 AM [facility] DIFFERENTIAL TYPE AUTOMATED DIFFERENTIAL 09/05/2024 4:46 AM [facility] SEG NEUTROPHILS 87.7 % 4:46 AM [facility] LYMPHOCYTES 4.3 % 09/05/2024 4:46 AM [facility] MONOCYTES 6.4 % 09/05/2024 4:46 AM [facility] EOSINOPHILS 0.0 % 09/05/2024 4:46 AM [facility] BASOPHILS 0.2 % 09/05/2024 4:46 AM [facility] IMMATURE GRANS % 1.4 % 09/05/19 4:46 AM [facility] ABS. NEUTROPHILS 16.96(H) 1.60 - 8.30 x10'3/uL 09/05/2024 4:46 AM [facility] ABS. LYMPHOCYTES 0.83 0.80 - 4.70 x10'3/uL 09/05/2024 4:46 AM [facility] ABS. MONOCYTES 1.23 0.00 - 1.50 x10'3/uL 09/05/2024 4:46 AM [facility] ABS. EOSINOPHILS 0.00 0.00 - 0.40 x10'3/uL 09/05/2024 4:46 AM [facility] ABS. BASOPHILS 0.03 0.00 - 0.20 x10'3/uL 09/05/2024 4:46 AM [facility] ABS. IMMATURE GRANULOCYTES 0.28(H) 0.00 - 0.03 x10'3/uL 09/05/2024 4:46 AM [facility] ABS. NUCLEATED RBC'S 0.00 0.00 - 0.01 x10'3/uL 09/05/2024 4:46 AM [facility] NRBC % 0.0 % 09/05/2024 4:46 AM [facility] 09/05/2024 4:00 AM WAX ROOM SUPERVISOR us Juan Francisco Rubi MD LABORATORY Final Result Performing Organization Address [facility] Co de Phone Number [facility] [address] [place] [address], [phone] * PHOSPHORUS, INORGANIC PHOSPHATE (09/05/2024 4:00 AM WAX ROOM SUPERVISOR) PHOSPHORUS 2.8 2.5 - 4.9 MG/DL 09/05/2024 4:58 AM [facility] 09/05/2024 4:00 AM WAX ROOM SUPERVISOR us Juan Francisco Rubi MD LABORATORY Final Result Performing Organization Address [facility] de Phone Number [facility] [address] [place] [address], [phone] * (ABNORMAL) COMPREHENSIVE METABOLIC PANEL (09/05/2024 4:00 AM WAX ROOM SUPERVISOR) SODIUM S/P/B 152(H) 136 - 145 MMOL/L 09/05/2024 4:58 AM [facility] POTASSIUM S/P/B 3.2(L) 3.5 - 5.1 MMOL/L 09/05/2024 4:58 AM [facility] CHLORIDE S/P/B 114 97 - 115 MMOL/L 09/05/2024 4:58 AM [facility] CO2 30.7 21.0 - 32.0 MMOL/L 09/05/2024 4:58 AM [facility] GLUCOSE 191(H) 74 - 106 MG/DL 09/05/2024 4:58 AM [facility] BUN 64(H) 7 - 18 MG/DL 09/05/2024 4:58 AM [facility] CREATININE S/P/B 2.44(H) 0.70 - 1.30 MG/DL 09/05/2024 4:58 AM [facility] CALCIUM S/P/B 9.2 8.5 - 10.1 MG/DL 09/05/2024 4:58 AM [facility] BILIRUBIN TOTAL S/P/B 1.3(H) 0.2 - 1.0 MG/DL 09/05/2024 4:58 AM [facility] ALKALINE PHOSPHATASE S/P/B 119(H) 45 - 115 U/L 09/05/2024 4:58 AM [facility] AST 19 15 - 37 U/L 09/05/2024 4:58 AM [facility] ALT 21 16 - 61 U/L 09/05/2024 4:58 AM [facility] TOTAL PROTEIN S/P/B 7.7 6.4 - 8.2 G/DL 09/05/2024 4:58 AM [facility] ALBUMIN S/P/B 2.4(L) 3.4 - 5.0 G/DL 09/05/2024 4:58 AM [facility] ANION GAP 7.3 2.0 - 10.0 MMOL/L 09/05/2024 4:58 AM [facility] OSMOLALITY (CALC) 337 MOSM/KG 025 4:58 AM [facility] Comment:REFERENCE RANGE NOT ESTABLISHED GFR ESTIMATE 28(L) >90 ML/MIN/1. 73 M2 09/05/2024 4:58 AM [facility] GFR NOTES GFR REFERENCE S: 09/05/2024 4:58 AM [facility] Comment: THE ESTIMATED GFR IS [...] ml/min/1.73 m2 G5,KIDNEY FAILURE: <15 ml/min/1.73 m2 09/05/2024 4:00 AM WAX ROOM SUPERVISOR us Juan Francisco Rubi MD LABORATORY Final Result Performing Organization Address [facility] Co de Phone Number [facility] [address] [place] [address], [phone] * (ABNORMAL) POCT glucose (09/04/2024 11:40 PM WAX ROOM SUPERVISOR) GLUCOSE POC 193(H) 70 - 109 09/04/2024 11:41 PM WAX ROOM SUPERVISOR [facility] 09/04/2024 11:4 0 PM WAX ROOM SUPERVISOR us Keyona Miller MD POCT ORDERABLES - DEVICE Final Result Performing Organization Address City/[facility]/ZIP Co de Phone Number [facility] [address] [place] [address], [place] [phone] * (ABNORMAL) POCT glucose (09/04/2024 7:52 PM WAX ROOM SUPERVISOR) GLUCOSE POC 127(H) 70 - 109 09/04/2024 7:53 PM WAX ROOM SUPERVISOR [facility] 09/04/2024 7:52 PM WAX ROOM SUPERVISOR us Keyona Miller MD POCT ORDERABLES - DEVICE Final Result Performing Organization Address [facility] Co de Phone Number [facility] [address] [place] [address], [place] [phone] * (ABNORMAL) POCT glucose (09/04/2024 3:43 PM WAX ROOM SUPERVISOR) GLUCOSE POC 209(H) 70 - 109 09/04/2024 3:47 PM WAX ROOM SUPERVISOR [facility] Comment:RN Notified 09/04/2024 3:43 PM WAX ROOM SUPERVISOR Keyona Miller MD POCT ORDERABLES - DEVICE Final Result Performing Organization Address [facility] Co de Phone Number [facility] [address] [place] [address], [place] [phone] * XR CHEST PORTABLE (09/04/2024 11:21 AM WAX ROOM SUPERVISOR) Anatomical Region Laterality Modality Chest Radiographic Stephie ging 09/04/2024 12:0 0 PM WAX ROOM SUPERVISOR Impressions 09/04/2024 12:04 PM WAX ROOM SUPERVISOR IMPRESSION: 1. ??Endotracheal and enteric tubes and right upper extremity approach PICC as above. ??No pneumothorax is seen. 2. ??Cardiomegaly, central pulmonary vascular congestion, and reticular prominence in both lungs compatible with interstitial edema. Referred By: PROVIDER NON-STAFF Interpreted By: Adan De La Rosa DO, 09/04/2024 12:00 PM Narrative 09/04/2024 12:04 PM WAX ROOM SUPERVISOR [facility] [address] [place], [place] [address] Examination: XR CHEST PORTABLE Exam time: 09/04/2024 11:16 AM Clinical history: PICC placement. ??Patient admitted with exacerbation of congestive heart failure. Comparison: Chest radiographs 09/04/2024 at 5:31, 09/03/2024 at 21:21, 20:16, and 9:33, 08/31/2024, and 07/31/2025. Technique: Upright AP portable radiograph of the chest. Findings: Examination is obtained with the patient in kyphotic positioning and rotated to the right. ??There is an endotracheal tube with the distal tip approximately 2.5 cm above the level the ryan. ??There is an enteric tube with the distal tip beyond the inferior margins of the examination. ??There are surgical changes of median sternotomy and valvuloplasty with unchanged configuration of the sternal wires. ??There is a right upper extremity approach PICC with the distal tip projecting over the lower right atrium. ??Additional leads overlying the chest are presumed to be external to the patient. There is cardiomegaly appearing similar to the prior examinations. ??There is prominence of the central pulmonary vasculature. ??There is reticular prominence in both lungs compatible with interstitial edema. ??No focal pulmonary consolidation is seen. ??No sizable pleural effusion is seen. ??No pneumothorax is seen. ??Enteric contrast is noted within the visualized colon. Procedure Note Adan De La Rosa DO - 09/04/[address] [address] Examination: XR CHEST PORTABLE Exam time: 09/04/2024 11:16 AM Clinical history: PICC placement. Patient admitted with exacerbation ofcongestive heart failure. Comparison: Chest radiographs 09/04/2024 at 5:31, 09/03/2024 at 21:21,20:16, and 9:33, 08/31/2024, and 07/31/2025. Technique: Upright AP portable radiograph of the chest. Findings: Examination is obtained with the patient in kyphotic positioning androtated to the right. There is an endotracheal tube with the distal tipapproximately 2.5 cm above the level the ryan. There is an enteric tubewith the distal tip beyond the inferior margins of the examination. Thereare surgical changes of median sternotomy and valvuloplasty with unchangedconfiguration of the sternal wires. There is a right upper extremityapproach PICC with the distal tip projecting over the lower right atrium.Additional leads overlying the chest are presumed to be external to thepatient. There is cardiomegaly appearing similar to the prior examinations. Thereis prominence of the central pulmonary vasculature. There is reticularprominence in both lungs compatible with interstitial edema. No focalpulmonary consolidation is seen. No sizable pleural effusion is seen. Nopneumothorax is seen. Enteric contrast is noted within the visualizedcolon. IMPRESSION: 1. Endotracheal and enteric tubes and right upper extremity approach PICCas above. No pneumothorax is seen. 2. Cardiomegaly, central pulmonary vascular congestion, and reticularprominence in both lungs compatible with interstitial edema. Referred By: PROVIDER NON-STAFF Interpreted By: Adan De La Rosa DO, 09/04/2024 12:00 PM us Keyona Miller MD GENERAL IMAGING Fi nal Result * (ABNORMAL) POCT glucose (09/04/2024 11:20 AM WAX ROOM SUPERVISOR) GLUCOSE POC 279(H) 70 - 109 09/04/2024 11:25 AM WAX ROOM SUPERVISOR [facility] 09/04/2024 11:2 0 AM WAX ROOM SUPERVISOR us Keyona Miller MD POCT ORDERABLES - DEVICE Final Result [facility] [address] [place] [address], [id number] * USV VAST TEAM PICC INSERT >5YR (09/04/2024 11:10 AM WAX ROOM SUPERVISOR) Anatomical Region Laterality Modality NA Vascular Ultraso und 09/04/2024 9:45 AM WAX ROOM SUPERVISOR Narrative 09/04/2024 9:45 AM WAX ROOM SUPERVISOR This report does not contain a radiologist's interpretation. Please review associated procedure and/or operative report. Procedure Note Eun Landry MD - 09/04/2024 This report does not contain a radiologist's interpretation. Please review associated procedure and/or operative report. us Keyona KEARNEY VASC Fi nal Result * USV MARIA ALEJANDRA DUPLEX LOW EXT ELZA (09/04/2024 9:03 AM WAX ROOM SUPERVISOR) Anatomical Region Laterality Modality Extremity Ultrasound 09/04/2024 8:25 AM WAX ROOM SUPERVISOR Narrative 09/04/2024 9:17 AM WAX ROOM SUPERVISOR ?Vascular Report Pat.Name: ??OBIE SIMS ?Pat.ID: ?[id number] ? St.Date: ?? 09/04/2024 ? Refer.: ??JUAN FRANCISCO RUBI ? Exam Time: 8:25:00 AM ? Study Type:PVI VENOUS DUPLEX SCAN-LEGS BILAT Height: ?168 cm ?Age: ??1955,69Y ? Sex: ? M ? Sonogrphr: RAMIN Cortez ? Pat. Stat.:Inpatient ? Room: ?ICUB-11 ? ICD - 9: ?? R06.02 Shortness of Breath CPT - 4: ?63711 Venous Duplex LE/UE Reason for Study:Shortness of Breath Race: ?W ? Bilat: ?No evidence of acute or chronic thrombosis noted in the deep ?or superficial veins in either lower extremity. <Electronic Signature> 09/04/2024 09:17 AM Lawrence Blankenship M.D. Procedure Note Lawrence Blankenship MD - 09/04/2024 Vascular Report Pat.Name: OBIE SIMS Pat.ID: [id number] .Date: 09/04/2024 Refer.MD: JUAN FRANCISCO RUBI Exam Time: 8:25:00 AM Study Type:PVI VENOUS DUPLEX SCAN-LEGS BILAT Height: 168 cm Age: 11 1955,69Y Sex: M Sonogrphr: RAMIN Cortez Pat. Stat.:[facility]: R06.02 Shortness of Breath CPT - 4: 14003 Venous Duplex LE/UE Reason for Study:Shortness of Breath Race: W Bilat: No evidence of acute or chronic thrombosis noted in the deep or superficial veins in either lower extremity. <Electronic Signature> 09/04/2024 09:17 AM Lawrence Blankenship M.D. us Juan Francisco Rubi MD [facility] Final Result * (ABNORMAL) TROPONIN, QUANT (09/04/2024 8:00 AM WAX ROOM SUPERVISOR) [facility] TROPONIN I HIGH SENSITIVITY 136(H) 0 - 78 ng/L 09/04/2024 8:55 AM WAX ROOM SUPERVISOR [facility] 09/04/2024 8:00 AM WAX ROOM SUPERVISOR Nikolas Jiménez MD LABORATORY Final Result Performing Organization Address [facility] de Phone Number [facility] [address] [place] [address], [place] [phone] * HEPARIN, ANTI XA, UFH (09/04/2024 6:17 AM WAX ROOM SUPERVISOR) HEPARIN ANTI XA UFH 0.41 0.30 - 0.70 IU/ML 09/04/2024 7:03 AM WAX ROOM SUPERVISOR [facility] Comment: UFH Therapeutic Anti Xa Ranges: Medical Therapeutic Range: 0.30 - 0.70 IU/mL Cardiac Therapeutic Range: 0.30 - 0.50 IU/mL Neuro Therapeutic Range: 0.20 - 0.40 IU/mL 09/04/2024 6:17 AM WAX ROOM SUPERVISOR Keyona Miller MD LABORATORY Fi nal Result Performing Organization Address [facility] de Phone Number [facility] [address] [place] [address], [phone] * (ABNORMAL) POCT glucose (09/04/2024 6:13 AM WAX ROOM SUPERVISOR) GLUCOSE POC 282(H) 70 - 109 09/04/2024 6:21 AM WAX ROOM SUPERVISOR [facility] 09/04/2024 6:13 AM WAX ROOM SUPERVISOR us Keyona Miller MD POCT ORDERABLES - DEVICE Final Result Performing Organization Address [facility] Co de Phone Number [facility] [address] [place] [address], [phone] * XR CHEST PORTABLE (09/04/2024 5:35 AM WAX ROOM SUPERVISOR) Anatomical Region Laterality Modality Chest Radiographic Stephie ging 09/04/2024 5:51 AM WAX ROOM SUPERVISOR Impressions 09/04/2024 5:52 AM WAX ROOM SUPERVISOR IMPRESSION: No significant interval change given allowances for differences in imaging technique. Referred By: PROVIDER NON-STAFF Interpreted By: Regulo Campo MD, 09/04/2024 5:51 AM Narrative 09/04/2024 5:52 AM WAX ROOM SUPERVISOR [address] [address] Examination: XR CHEST PORTABLE Exam time: 09/04/2024 5:30 AM Indication: Intubation Comparison: 09/03/2024 Technique: Portable AP view the chest, one image. Findings: Endotracheal tube with tip about 2.5 cm above the ryan. ??Gastric tube is well-positioned. ??Median sternotomy wires appear stable. ??Enlargement of the cardiac silhouette with pulmonary vascular congestion. ??Small bilateral pleural effusions with associated atelectasis. ??No acute osseous abnormality. Procedure Note Regulo Campo MD - 09/04/[address] [address] Examination: XR CHEST PORTABLE Exam time: 09/04/2024 5:30 AM Indication: Intubation Comparison: 09/03/2024 Technique: Portable AP view the chest, one image. Findings: Endotracheal tube with tip about 2.5 cm above the ryan.Gastric tube is well-positioned. Median sternotomy wires appear stable.Enlargement of the cardiac silhouette with pulmonary vascular congestion.Small bilateral pleural effusions with associated atelectasis. No acuteosseous abnormality. IMPRESSION: No significant interval change given allowances fordifferences in imaging technique. Referred By: PROVIDER NON-STAFF Interpreted By: Regulo Campo MD, 09/04/2024 5:51 AM us Keyona Miller MD GENERAL IMAGING Fi nal Result * (ABNORMAL) POCT ACUTE VENOUS PANEL (09/04/2024 4:18 AM WAX ROOM SUPERVISOR) Pathologist [facility] SODIUM WHOLE BLOOD 153(H) 138 - 146 mmol/L 09/04/2024 4:21 AM [facility] POTASSIUM WHOLE BLOOD 3.6 3.5 - 4.9 mmol/L 09/04/2024 4:21 AM [facility] CA IONIZED WH BLOOD 1.16 1.12 - 1.32 mmol/L 09/04/2024 4:21 AM WAX ROOM SUPERVISOR [facility] POC PH VENOUS 7.360 7.31 - 7.41 09/04/2024 4:21 AM [facility] POC PCO2 VENOUS 62.2(H) 41.0 - 51.0 MMHG 09/04/2024 4:21 AM [facility] POC PO2 VENOUS 32 25 - 40 MMHG 09/04/2024 4:21 AM [facility] HCO3 VENOUS 35.2(H) 23 - 28 MMOL/L 09/04/2024 4:21 AM [facility] TCO2 VENOUS 37(H) 24 - 29 MMOL/L 09/04/2024 4:21 AM [facility] BASE EXCESS VENOUS 10(H) 0 - 3 MMOL/L 09/04/2024 4:21 AM [facility] HEMATOCRIT 41 38 - 51 % 09/04/2024 4:21 AM [facility] TIME TEST WAS PERFORMED: 418 09/04/2024 4:21 AM [facility] 09/04/2024 4:18 AM [facility] RO[facility] SUPERVISOR us Keyona Miller MD POCT ORDERABLES - DEVICE Final Result [facility] [address], [place] [address], [place] [phone] * HEPARIN, ANTI XA, UFH (09/04/2024 4:15 AM WAX ROOM SUPERVISOR) HEPARIN ANTI XA UFH 0.35 0.30 - 0.70 IU/ML 09/04/2024 4:42 AM WAX ROOM SUPERVISOR [facility] Comment: UFH Therapeutic Anti Xa Ranges: Medical Therapeutic Range: 0.30 - 0.70 IU/mL Cardiac Therapeutic Range: 0.30 - 0.50 IU/mL Neuro Therapeutic Range: 0.20 - 0.40 IU/mL 09/04/2024 4:15 AM WAX ROOM SUPERVISOR us Juan Francisco Rubi MD LABORATORY Final Result Performing Organization Address [facility] de Phone Number [facility] [address] [id number], [id number] * (ABNORMAL) PROTIME/INR, VENOUS (09/04/2024 4:15 AM WAX ROOM SUPERVISOR) PROTIME 44.3(H) 9.4 - 12.5 SEC 09/04/2024 4:42 AM WAX ROOM SUPERVISOR [facility] INR 3.7(H) 0.8 - 1.1 09/04/2024 4:42 AM WAX ROOM SUPERVISOR [facility] 09/04/2024 4:15 AM WAX ROOM SUPERVISOR us Juan Francisco Rubi MD LABORATORY Final Result Performing Organization Address [facility] de Phone Number [facility] [address] [place] [address], [id number] * MAGNESIUM (09/04/2024 4:15 AM WAX ROOM SUPERVISOR) MAGNESIUM 2.4 1.6 - 2.6 MG/DL 09/04/2024 5:15 AM WAX ROOM SUPERVISOR [facility] 09/04/2024 4:15 AM WAX ROOM SUPERVISOR us Keyona Miller MD LABORATORY Fi nal Result Performing Organization Address [facility] Co de Phone Number [facility] [address] [place] [address], [id number] * (ABNORMAL) CBC W/DIFF AUTOMATED (09/04/2024 4:15 AM WAX ROOM SUPERVISOR) [facility] WBC 14.31(H) 4.00 - 10.80 x10'3/uL 09/04/2024 4:36 AM [facility] RBC 4.31(L) 4.50 - 6.10 x10'6/uL 09/04/2024 4:36 AM [facility] HGB 12.1 12.0 - 16.0 G/DL 09/04/2024 4:36 AM [facility] HCT 40.6 37.0 - 52.0 % 09/04/2024 4:36 AM [facility] MCV 94.2 78.0 - 100.0 FL 09/04/2024 4:36 AM [facility] MCH 28.1 27.0 - 31.0 PG 09/04/2024 4:36 AM [facility] MCHC 29.8(L) 33.0 - 36.0 G/DL 09/04/2024 4:36 AM [facility] RDW 15.9(H) 11.5 - 14.5 % 09/04/2024 4:36 AM [facility] PLT 138(L) 150 - 350 x10'3/uL 09/04/2024 4:36 AM [facility] MPV 11.7(H) 7.4 - 10.4 FL 09/04/2024 4:36 AM [facility] DIFFERENTIAL TYPE AUTOMATED DIFFERENTIAL 09/04/2024 4:36 AM [facility] SEG NEUTROPHILS 86.8 % 4:36 AM [facility] LYMPHOCYTES 3.8 % 09/04/2024 4:36 AM [facility] MONOCYTES 8.7 % 09/04/2024 4:36 AM WAX ROOM SUPERVISOR [facility] EOSINOPHILS 0.0 % 09/04/2024 4:36 AM WAX ROOM SUPERVISOR [facility] BASOPHILS 0.1 % 09/04/2024 4:36 AM [facility] IMMATURE GRANS % 0.6 % 09/04/19 4:36 AM WAX ROOM SUPERVISOR [facility] ABS. NEUTROPHILS 12.43(H) 1.60 - 8.30 x10'3/uL 09/04/2024 4:36 AM WAX ROOM SUPERVISOR [facility] ABS. LYMPHOCYTES 0.54(L) 0.80 - 4.70 x10'3/uL 09/04/2024 4:36 AM [facility] ABS. MONOCYTES 1.24 0.00 - 1.50 x10'3/uL 09/04/2024 4:36 AM WAX ROOM SUPERVISOR [facility] ABS. EOSINOPHILS 0.00 0.00 - 0.40 x10'3/uL 09/04/2024 4:36 AM WAX ROOM SUPERVISOR [facility] ABS. BASOPHILS 0.01 0.00 - 0.20 x10'3/uL 09/04/2024 4:36 AM [facility] ABS. IMMATURE GRANULOCYTES 0.09(H) 0.00 - 0.03 x10'3/uL 09/04/2024 4:36 AM WAX ROOM SUPERVISOR [facility] ABS. NUCLEATED RBC'S 0.00 0.00 - 0.01 x10'3/uL 09/04/2024 4:36 AM WAX ROOM SUPERVISOR [facility] NRBC % 0.0 % 09/04/2024 4:36 AM [facility] 09/04/2024 4:15 AM WAX ROOM SUPERVISOR us Juan Francisco Rubi MD LABORATORY Final Result [facility] [address] [place] [address], [id number] * PHOSPHORUS, INORGANIC PHOSPHATE (09/04/2024 4:15 AM WAX ROOM SUPERVISOR) PHOSPHORUS 4.1 2.5 - 4.9 MG/DL 09/04/2024 5:15 AM [facility] 09/04/2024 4:15 AM WAX ROOM SUPERVISOR Juan Francisco Rubi MD LABORATORY Final Result [facility] [address] [place] [address], [id number] * (ABNORMAL) COMPREHENSIVE METABOLIC PANEL (09/04/2024 4:15 AM WAX ROOM SUPERVISOR) Pathologist [facility] SODIUM S/P/B 148(H) 136 - 145 MMOL/L 09/04/2024 5:15 AM [facility] POTASSIUM S/P/B 3.5 3.5 - 5.1 MMOL/L 09/04/2024 5:15 AM [facility] CHLORIDE S/P/B 111 97 - 115 MMOL/L 09/04/2024 5:15 AM [facility] CO2 31.3 21.0 - 32.0 MMOL/L 09/04/2024 5:15 AM [facility] GLUCOSE 320(H) 74 - 106 MG/DL 09/04/2024 5:15 AM [facility] BUN 64(H) 7 - 18 MG/DL 09/04/2024 5:15 AM [facility] CREATININE S/P/B 2.29(H) 0.70 - 1.30 MG/DL 09/04/2024 5:15 AM [facility] CALCIUM S/P/B 9.2 8.5 - 10.1 MG/DL 09/04/2024 5:15 AM [facility] BILIRUBIN TOTAL S/P/B 1.3(H) 0.2 - 1.0 MG/DL 09/04/2024 5:15 AM [facility] ALKALINE PHOSPHATASE S/P/B 118(H) 45 - 115 U/L 09/04/2024 5:15 AM [facility] AST 16 15 - 37 U/L 09/04/2024 5:15 AM [facility] ALT 21 16 - 61 U/L 09/04/2024 5:15 AM [facility] TOTAL PROTEIN S/P/B 7.6 6.4 - 8.2 G/DL 09/04/2024 5:15 AM [facility] ALBUMIN S/P/B 2.5(L) 3.4 - 5.0 G/DL 09/04/2024 5:15 AM [facility] ANION GAP 5.7 2.0 - 10.0 MMOL/L 09/04/2024 5:15 AM [facility] OSMOLALITY (CALC) 337 MOSM/KG 025 5:15 AM [facility] Comment:REFERENCE RANGE NOT ESTABLISHED GFR ESTIMATE 30(L) >90 ML/MIN/1. 73 M2 09/04/2024 5:15 AM [facility] GFR NOTES GFR REFERENCE S: 09/04/2024 5:15 AM [facility] Comment: THE ESTIMATED GFR IS [...] ml/min/1.73 m2 G5,KIDNEY FAILURE: <15 ml/min/1.73 m2 09/04/2024 4:15 AM WAX ROOM SUPERVISOR Juan Francisco Rubi MD LABORATORY Final Result Performing Organization Address [facility] de Phone Number [facility] [address] [place] [address], [phone] * (ABNORMAL) TROPONIN, QUANT (09/04/2024 4:15 AM WAX ROOM SUPERVISOR) TROPONIN I HIGH SENSITIVITY 145(H) 0 - 78 ng/L 09/04/2024 5:15 AM WAX ROOM SUPERVISOR [facility] 09/04/2024 4:15 AM WAX ROOM SUPERVISOR Nikolas Jiménez MD LABORATORY Final Result Performing Organization Address [facility] de Phone Number [facility] [address] [place] [address], [id number] * (ABNORMAL) POCT glucose (09/04/2024 12:08 AM WAX ROOM SUPERVISOR) Pathologist [facility] GLUCOSE POC 358(H) 70 - 109 09/04/2024 12:09 AM WAX ROOM SUPERVISOR [facility] 09/04/2024 12:0 8 AM WAX ROOM SUPERVISOR Juan Francisco Rubi MD POCT ORDERABLES - DEVICE Final R esult Performing Organization Address [facility] de Phone Number [facility] [address] [place] [address], [id number] * XR CHEST PORTABLE (09/03/2024 9:25 PM WAX ROOM SUPERVISOR) Anatomical Region Laterality Modality Chest Radiographic Stephie ging 09/03/2024 9:27 PM WAX ROOM SUPERVISOR Impressions 09/03/2024 9:30 PM WAX ROOM SUPERVISOR IMPRESSION: 1. ??Support devices as above. 2. ??Cardiomegaly and similar bilateral opacities likely edema and/or infection. 3. ??Suggestion of trace bilateral pleural effusions. Referred By: PROVIDER NON-STAFF Interpreted By: Ever Love MD, 09/03/2024 9:27 PM Narrative 09/03/2024 9:30 PM WAX ROOM SUPERVISOR [address] [address] Examination: Chest x-ray 1 view Exam Date/Time: 09/03/2024 9:20 PM REASON FOR EXAM: 69 years-old Male with post ETT ?? Comparison: Chest x-ray 09/03/2024 at 8:16 PM Technique: Single AP view of the chest was obtained. Findings: Endotracheal tube terminates 1.7 cm above the ryan. ??Enteric tube terminates in the region of the stomach. ??Sternotomy wires. Heart size is enlarged, similar to prior. Similar mild bilateral opacities. ??Suggestion of trace bilateral pleural effusions. ??No pneumothorax. No acute osseous lesions are seen. Procedure Note Ever Love MD - 09/03/[address] [address] Examination: Chest x-ray 1 view Exam Date/Time: 09/03/2024 9:20 PM REASON FOR EXAM: 69 years-old Male with post ETT Comparison: Chest x-ray 09/03/2024 at 8:16 PM Technique: Single AP view of the chest was obtained. Findings: Endotracheal tube terminates 1.7 cm above the ryan. Enteric tubeterminates in the region of the stomach. Sternotomy wires. Heart size is enlarged, similar to prior. Similar mild bilateral opacities. Suggestion of trace bilateral pleuraleffusions. No pneumothorax. No acute osseous lesions are seen. IMPRESSION: 1. Support devices as above. 2. Cardiomegaly and similar bilateral opacities likely edema and/orinfection. 3. Suggestion of trace bilateral pleural effusions. Referred By: PROVIDER NON-STAFF Interpreted By: Ever Love MD, 09/03/2024 9:27 PM us Juan Francisco Rubi MD GENERAL IMAGING Final Result * (ABNORMAL) POCT glucose (09/03/2024 9:23 PM WAX ROOM SUPERVISOR) GLUCOSE POC 298(H) 70 - 109 09/03/2024 9:33 PM WAX ROOM SUPERVISOR [facility] 09/03/2024 9:23 PM WAX ROOM SUPERVISOR Juan Francisco Rubi MD POCT ORDERABLES - DEVICE Final R esult [facility] [address] [place] [address], [id number] * INTUBATION (09/03/2024 9:08 PM WAX ROOM SUPERVISOR) Narrative Juan Francisco Rubi MD - 09/03/2024 9:08 PM WAX ROOM SUPERVISOR Juan Francisco Rubi MD ? 09/03/2024 ??9:09 [...] to verify the correct patient, procedure, equipment, technical support internship and site/side marked as required. Indications: hypoxemia [...] PROCEDURE/MINOR SURGICAL ORDERAB LES Final Result * PHOSPHORUS, INORGANIC PHOSPHATE (09/03/2024 8:29 PM WAX ROOM SUPERVISOR) PHOSPHORUS 4.1 2.5 - 4.9 MG/DL 09/03/2024 9:13 PM WAX ROOM SUPERVISOR [facility] 09/03/2024 8:29 PM WAX ROOM SUPERVISOR Nikolas Jiménez MD LABORATORY Final Result [facility] [address] [place] [address], [id number] * (ABNORMAL) ARTERIAL BLOOD GAS (09/03/2024 8:29 PM WAX ROOM SUPERVISOR) PH ARTERIAL 7.25(L) 7.35 - 7.45 09/03/2024 8:53 PM [facility] PCO2 73.9(HH) 35.0 - 45.0 MMHG 09/03/2024 8:53 PM [facility] Comment: CRITICAL RESULT, SPECIMEN DATE, TIME WERE READ BACK BY YUNI [email or web address] LENARD PO2 88.4 83.0 - 108.0 MMHG 09/03/2024 8:53 PM WAX ROOM SUPERVISOR [facility] BICARB ARTERIAL 31.2(H) 22 - 26 MMOL/L 09/03/2024 8:53 PM [facility] TOTAL CO2 CAPILLARY 33.5(H) 23 - 27 MMOL/L 09/03/2024 8:53 PM [facility] BE/BASE EXCESS 2.0 0 - 2 MMOL/L 09/03/2024 8:53 PM [facility] O2 Saturation 95 95 - 98 % 09/03/2024 8:53 PM [facility] HEATHER TEST POSITIVE 09/03/2024 8:29 PM WAX ROOM SUPERVISOR [facility] OXYGEN STATUS by pap 09/03/2024 8:29 PM WAX ROOM SUPERVISOR [facility] DRAW SITE ARTERIAL LT RADIAL 09/03/2024 8:29 PM WAX ROOM SUPERVISOR [facility] 09/03/2024 8:29 PM WAX ROOM SUPERVISOR us Nikolas Jiménez MD LABORATORY Final Result Performing Organization Address [facility] Co de Phone Number [facility] [address] [place] [address], [place] [phone] * (ABNORMAL) TROPONIN, QUANT (09/03/2024 8:29 PM WAX ROOM SUPERVISOR) TROPONIN I HIGH SENSITIVITY 115(H) 0 - 78 ng/L 09/03/2024 9:13 PM WAX ROOM SUPERVISOR [facility] 09/03/2024 8:29 PM WAX ROOM SUPERVISOR us Nikolas Jiménez MD LABORATORY Final Result Performing Organization Address [facility] Co de Phone Number [facility] [address] [place] [address], [place] [phone] * LACTIC ACID (09/03/2024 8:29 PM WAX ROOM SUPERVISOR) LACTIC ACID VENOUS 1.5 0.4 - 2.0 MMOL/L 09/03/2024 9:11 PM WAX ROOM SUPERVISOR [facility] 09/03/2024 8:29 PM WAX ROOM SUPERVISOR us Nikolas Jiménez MD LABORATORY Final Result Performing Organization Address [facility] Co de Phone Number [facility] [address] [place] [address], [place] [phone] * MAGNESIUM (09/03/2024 8:29 PM WAX ROOM SUPERVISOR) MAGNESIUM 2.4 1.6 - 2.6 MG/DL 09/03/2024 9:13 PM WAX ROOM SUPERVISOR [facility] 09/03/2024 8:29 PM WAX ROOM SUPERVISOR us Nikolas Jiménez MD LABORATORY Final Result Performing Organization Address [facility] de Phone Number [facility] [address] [place] [address], [phone] * (ABNORMAL) PRO-BRAIN NATRIURETIC PEPTIDE (PRO BNP) (09/03/2024 8:29 PM WAX ROOM SUPERVISOR) PRO-B TYPE NATRIURETIC PEPTIDE 28,171(H) <125 PG/ML 09/03/2024 9:13 PM WAX ROOM SUPERVISOR [facility] Comment: AGE INDEPENDENT: <300 PG/ML HAS [...] 72% FOR ACUTE CHF. 09/03/2024 8:29 PM WAX ROOM SUPERVISOR us Nikolas Jiménez MD LABORATORY Final Result Performing Organization Address [facility] de Phone Number [facility] [address] [place] [address], [id number] * (ABNORMAL) COMPREHENSIVE METABOLIC PANEL (09/03/2024 8:29 PM WAX ROOM SUPERVISOR) SODIUM S/P/B 144 136 - 145 MMOL/L 09/03/2024 9:13 PM WAX ROOM SUPERVISOR [facility] POTASSIUM S/P/B 4.2 3.5 - 5.1 MMOL/L 09/03/2024 9:13 PM WAX ROOM SUPERVISOR [facility] CHLORIDE S/P/B 110 97 - 115 MMOL/L 09/03/2024 9:13 PM [facility] CO2 30.9 21.0 - 32.0 MMOL/L 09/03/2024 9:13 PM [facility] GLUCOSE 442(H) 74 - 106 MG/DL 09/03/2024 9:13 PM [facility] BUN 60(H) 7 - 18 MG/DL 09/03/2024 9:13 PM [facility] CREATININE S/P/B 2.15(H) 0.70 - 1.30 MG/DL 09/03/2024 9:13 PM [facility] CALCIUM S/P/B 9.7 8.5 - 10.1 MG/DL 09/03/2024 9:13 PM [facility] BILIRUBIN TOTAL S/P/B 1.4(H) 0.2 - 1.0 MG/DL 09/03/2024 9:13 PM [facility] ALKALINE PHOSPHATASE S/P/B 143(H) 45 - 115 U/L 09/03/2024 9:13 PM [facility] AST 21 15 - 37 U/L 09/03/2024 9:13 PM [facility] ALT 24 16 - 61 U/L 09/03/2024 9:13 PM [facility] TOTAL PROTEIN S/P/B 9.0(H) 6.4 - 8.2 G/DL 09/03/2024 9:13 PM [facility] ALBUMIN S/P/B 3.0(L) 3.4 - 5.0 G/DL 09/03/2024 9:13 PM [facility] ANION GAP 3.1 2.0 - 10.0 MMOL/L 09/03/2024 9:13 PM [facility] OSMOLALITY (CALC) 334 MOSM/KG 025 9:13 PM [facility] Comment:REFERENCE RANGE NOT ESTABLISHED GFR ESTIMATE 32(L) >90 ML/MIN/1. 73 M2 09/03/2024 9:13 PM WAX ROOM SUPERVISOR [facility] GFR NOTES GFR REFERENCE S: 09/03/2024 9:13 PM WAX ROOM SUPERVISOR [facility] Comment: THE ESTIMATED GFR IS CALCULATED [...] m2 G5,KIDNEY FAILURE: <15 ml/min/1.73 m2 09/03/2024 8:29 PM WAX ROOM SUPERVISOR Nikolas Jiménez MD LABORATORY Final Result [facility] [address] [place] [address], [id number] * (ABNORMAL) CBC W/DIFF AUTOMATED (09/03/2024 8:29 PM WAX ROOM SUPERVISOR) WBC 17.46(H) 4.00 - 10.80 x10'3/uL 09/03/2024 8:50 PM WAX ROOM SUPERVISOR [facility] RBC 4.69 4.50 - 6.10 x10'6/uL 09/03/2024 8:50 PM WAX ROOM SUPERVISOR [facility] HGB 13.7 12.0 - 16.0 G/DL 09/03/2024 8:50 PM WAX ROOM SUPERVISOR [facility] HCT 44.3 37.0 - 52.0 % 09/03/2024 8:50 PM WAX ROOM SUPERVISOR [facility] MCV 94.5 78.0 - 100.0 FL 09/03/2024 8:50 PM WAX ROOM SUPERVISOR [facility] MCH 29.2 27.0 - 31.0 PG 09/03/2024 8:50 PM [facility] MCHC 30.9(L) 33.0 - 36.0 G/DL 09/03/2024 8:50 PM [facility] RDW 16.2(H) 11.5 - 14.5 % 09/03/2024 8:50 PM [facility] PLT 131(L) 150 - 350 x10'3/uL 09/03/2024 8:50 PM [facility] MPV 13.2(H) 7.4 - 10.4 FL 09/03/2024 8:50 PM [facility] DIFFERENTIAL TYPE AUTOMATED DIFFERENTIAL 09/03/2024 8:51 PM [facility] SEG NEUTROPHILS 83.5 % 8:51 PM [facility] LYMPHOCYTES 5.4 % 09/03/2024 8:51 PM [facility] MONOCYTES 10.4 % 09/03/2024 8:51 PM [facility] EOSINOPHILS 0.0 % 09/03/2024 8:51 PM [facility] BASOPHILS 0.2 % 09/03/2024 8:51 PM [facility] IMMATURE GRANS % 0.5 % 09/03/19 25 8:51 PM [facility] ABS. NEUTROPHILS 14.60(H) 1.60 - 8.30 x10'3/uL 09/03/2024 8:51 PM [facility] ABS. LYMPHOCYTES 0.94 0.80 - 4.70 x10'3/uL 09/03/2024 8:51 PM [facility] ABS. MONOCYTES 1.81(H) 0.00 - 1.50 x10'3/uL 09/03/2024 8:51 PM [facility] ABS. EOSINOPHILS 0.00 0.00 - 0.40 x10'3/uL 09/03/2024 8:51 PM [facility] ABS. BASOPHILS 0.03 0.00 - 0.20 x10'3/uL 09/03/2024 8:51 PM WAX ROOM SUPERVISOR [facility] ABS. IMMATURE GRANULOCYTES 0.08(H) 0.00 - 0.03 x10'3/uL 09/03/2024 8:51 PM [facility] ABS. NUCLEATED RBC'S 0.00 0.00 - 0.01 x10'3/uL 09/03/2024 8:51 PM WAX ROOM SUPERVISOR [facility] NRBC % 0.0 % 09/03/2024 8:51 PM [facility] 09/03/2024 8:29 PM WAX ROOM SUPERVISOR Nikolas Jiménez MD LABORATORY Final Result [facility] [address] [place] [address], [id number] * (ABNORMAL) POCT ACUTE ARTERIAL PANEL (09/03/2024 8:28 PM WAX ROOM SUPERVISOR) SODIUM WHOLE BLOOD 150.0(H) 138 - 146 mmol/L 09/18/2024 11:07 AM [facility] POTASSIUM WHOLE BLOOD 4.30 3.5 - 4.9 mmol/L 09/18/2024 11:07 AM [facility] CA IONIZED WH BLOOD 1.22 1.12 - 1.32 mmol/L 09/18/2024 11:07 AM [facility] POC PH ARTERIAL 7.278(L) 7.35 - 7.45 09/18/2024 11:07 AM [facility] POC PCO2 ARTERIAL 73.80(H) 35.0 - 45.0 MMHG 09/18/2024 11:07 AM [facility] POC PO2 ARTERIAL 88.0 80 - 105 MMHG 09/18/2024 11:07 AM [facility] POC HCO3 ARTERIAL 34.5(H) 22 - 26 MMOL/L 09/18/2024 11:07 AM WAX ROOM SUPERVISOR [facility] POC TCO2 ARTERIAL 37.0(H) 23 - 27 MMOL/L 09/18/2024 11:07 AM WAX ROOM SUPERVISOR [facility] POC BASE EXCESS ARTERIAL 8(H) 0 - 3 MMOL/L 09/18/2024 11:07 AM WAX ROOM SUPERVISOR [facility] POC HEMATOCRIT 46 38 - 51 % 09/18/2024 11:07 AM WAX ROOM SUPERVISOR [facility] TIME TEST WAS PERFORMED: 202709/18/2024 11:07 AM WAX ROOM SUPERVISOR [facility] 09/03/2024 8:28 PM WAX ROOM SUPERVISOR Kelly Wilson MD POCT ORDERABLES - DEVICE Final Result Performing Organization Address City/State/[facility] Co de Phone Number [facility] [address] [place] [phone], [id number] * XR CHEST PORTABLE (09/03/2024 8:22 PM WAX ROOM SUPERVISOR) Anatomical Region Laterality Modality Chest Radiographic Stephie ging 09/03/2024 9:24 PM WAX ROOM SUPERVISOR Impressions 09/03/2024 9:27 PM WAX ROOM SUPERVISOR IMPRESSION: Cardiomegaly and similar mild bilateral opacities, likely edema and/or infection. Referred By: PROVIDER NON-STAFF Interpreted By: Ever Love MD, 09/03/2024 9:24 PM Narrative 09/03/2024 9:27 PM WAX ROOM SUPERVISOR [facility] [address] [place], [place] [address] Examination: Chest x-ray 1 view Exam Date/Time: 09/03/2024 8:21 PM REASON FOR EXAM: 69 years-old Male with SHORTNESS OF BREATH ?? Comparison: Chest x-ray 09/03/2024 at 9:33 AM Technique: Single AP view of the chest was obtained. Findings: Patient's chin positioning slightly obscures bilateral lung apices. Heart size is enlarged, similar to prior. ??Sternotomy wires. Mild bilateral opacities are similar to today's earlier radiograph. There is no pleural effusion or pneumothorax. No acute osseous lesions are seen. Procedure Note Ever Love MD - 09/03/2024 [facility] [address] [place], [place] [address] Examination: Chest x-ray 1 view Exam Date/Time: 09/03/2024 8:21 PM REASON FOR EXAM: 69 years-old Male with SHORTNESS OF BREATH Comparison: Chest x-ray 09/03/2024 at 9:33 AM Technique: Single AP view of the chest was obtained. Findings: Patient's chin positioning slightly obscures bilateral lung apices. Heart size is enlarged, similar to prior. Sternotomy wires. Mild bilateral opacities are similar to today's earlier radiograph. Thereis no pleural effusion or pneumothorax. No acute osseous lesions are seen. IMPRESSION: Cardiomegaly and similar mild bilateral opacities, likely edema and/orinfection. Referred By: PROVIDER NON-STAFF Interpreted By: Ever Love MD, 09/03/2024 9:24 PM us Nikolas Jiménez MD GENERAL IMAGING Final Result * ECG 12 lead (09/03/2024 8:13 PM WAX ROOM SUPERVISOR) 09/03/2024 8:13 PM WAX ROOM SUPERVISOR Narrative [facility] - 09/03/2024 9:13 PM WAX ROOM SUPERVISOR ? [facility] ?[address] [place], [place] ??[address] ? Test Date: ?2024-09-03 Pat Name: ? OBIE SIMS ?Department: ?? 1 ? Room: ? ICUB11 Gender: ? Male ? Dot Etcher Apprentice: ?? Hans Santiago : ?1955 ? Requested By: NIKOLAS PETERSENOUR Order Number: [id number] ? Reading MD: ?? Armand Lentz ? Measurements Intervals ?[place] ? Rate: ? 101 ?P: ? TN: ? 0 ?QRS: ?-46 QRSD: ? 146 ?T: ?132 QT: ? 360 ? QTc: ?467 ? Interpretive Statements ATRIAL FIBRILLATION WITH RAPID VENTRICULAR RESPONSE WITH ABERRANT CONDUCTION OR VENTRICULAR PREMATURE COMPLEXES LEFT AXIS DEVIATION ??[QRS AXIS < -30] LEFT BUNDLE BRANCH BLOCK ??[120+ ms QRS DURATION, 80+ ms Q/S IN V1/V2, 85+ ms R IN I/aVL/V5/V6] ROOM SUPERVISOR Procedure Note Armand Lentz MD - 09/03/2024 [place] [address] [place] [address] Test Date: 2024-09-03 Pat Name: OBIE SIMS Department: 1 Room: [facility] Gender: Male Dot Etcher Apprentice: Hans Santiago : 1955 Requested By: NIKOLAS JIMÉNEZ Order Number: [id number] Reading MD: Armand Lentz Measurements Intervals [place] Rate: 101 P: TN: 0 QRS: -46 QRSD: 146 T: 132 QT: 360 QTc: 467 Interpretive Statements ATRIAL FIBRILLATION WITH RAPID VENTRICULAR RESPONSE WITH ABERRANTCONDUCTION OR VENTRICULAR PREMATURE COMPLEXES LEFT AXIS DEVIATION [QRS AXIS < -30] LEFT BUNDLE BRANCH BLOCK [120+ ms QRS DURATION, 80+ ms Q/S IN V1/V2, 85+ms R IN I/aVL/V5/V6] ROOM SUPERVISOR us Nikolas Jiménez MD ECG ORDERABLES Final Result [facility] * (ABNORMAL) POCT glucose (09/03/2024 8:04 PM WAX ROOM SUPERVISOR) GLUCOSE POC 367(H) 70 - 109 09/03/2024 8:05 PM WAX ROOM SUPERVISOR [facility] 09/03/2024 8:04 PM WAX ROOM SUPERVISOR us Sayeeda A Neftali MD POCT ORDERABLES - DEVICE Fin al Result Performing Organization Address [facility] Co de Phone Number [facility] [address] [place] [address], [place] [phone] * (ABNORMAL) POCT glucose (09/03/2024 5:22 PM WAX ROOM SUPERVISOR) GLUCOSE POC 315(H) 70 - 109 09/03/2024 5:24 PM WAX ROOM SUPERVISOR [facility] 09/03/2024 5:22 PM WAX ROOM SUPERVISOR us Jean Lindsay MD POCT ORDERABLES - DEVICE Fin al Result Performing Organization Address [facility] de Phone Number [facility] [address] [place] [address], [place] [phone] * (ABNORMAL) POCT glucose (09/03/2024 4:03 PM WAX ROOM SUPERVISOR) GLUCOSE POC 225(H) 70 - 109 09/03/2024 4:16 PM WAX ROOM SUPERVISOR [facility] 09/03/2024 4:03 PM WAX ROOM SUPERVISOR us Jean Lindsay MD POCT ORDERABLES - DEVICE Fin al Result Performing Organization Address [facility] Co de Phone Number [facility] [address] [place] [address], [place] [phone] * CULTURE, BACTERIA BLOOD (09/03/2024 12:23 PM WAX ROOM SUPERVISOR) SPEC DESCRIPTION BLOOD 09/03/2024 11:59 AM WAX ROOM SUPERVISOR [facility] SPECIAL REQUESTS NO SPECIAL REQUEST 09/03/2024 11:59 AM WAX ROOM SUPERVISOR [facility] CULTURE RESULT NO GROWTH 5 DAYS 09/08/2024 9:25 PM WAX ROOM SUPERVISOR [facility] BLOOD SPECIMEN OBTAINED FOR BLOOD CULTURE / Unknown 09/03/2024 12:23 PM WAX ROOM SUPERVISOR 09/03/2024 12:24 PM WAX ROOM SUPERVISOR us Jean Lindsay MD MICROBIOLOGY - GENERAL ORDER BAKARI Final Result Performing Organization Address [facility] Co de Phone Number [facility] [address] [place] [address], [place] [phone] * (ABNORMAL) POCT glucose (09/03/2024 10:55 AM WAX ROOM SUPERVISOR) GLUCOSE POC 210(H) 70 - 109 09/03/2024 10:58 AM WAX ROOM SUPERVISOR [facility] 09/03/2024 10:5 5 AM WAX ROOM SUPERVISOR us Jean Lindsay MD POCT ORDERABLES - DEVICE Fin al Result Performing Organization Address [facility] de Phone Number [facility] [address] [place] [address], [place] [phone] * XR CHEST PORTABLE (09/03/2024 9:35 AM WAX ROOM SUPERVISOR) Anatomical Region Laterality Modality Chest Radiographic Stephie ging 09/03/2024 9:54 AM WAX ROOM SUPERVISOR Impressions 09/03/2024 9:54 AM WAX ROOM SUPERVISOR IMPRESSION: Persistent bilateral alveolar and interstitial opacification concerning for pneumonia or pulmonary edema. Slight improvement as compared to August 31. Referred By: PROVIDER NON-STAFF Interpreted By: Klever Edwards MD, 09/03/2024 9:54 AM Narrative 09/03/2024 9:54 AM WAX ROOM SUPERVISOR [facility] [address] [place], [place] [address] Procedure(s): XR CHEST PORTABLE Date of service: [...] Procedure Note Klever Edwards MD - 09/03/[address] [address] Procedure(s): XR CHEST PORTABLE Date of service: [...] Edwards MD, 09/03/2024 9:54 AM us Marlin Henriquez DEFENSE ATTORNEY GENERAL IMAGING Final Re sult * (ABNORMAL) ARTERIAL BLOOD GAS (09/03/2024 9:09 AM WAX ROOM SUPERVISOR) PH ARTERIAL 7.34(L) 7.35 - 7.45 09/03/2024 9:17 AM WAX ROOM SUPERVISOR [facility] PCO2 51.3(H) 35.0 - 45.0 [facility] 09/03/2024 9:17 AM WAX ROOM SUPERVISOR [facility] PO2 78.7(L) 83.0 - 108.0 [facility] 09/03/2024 9:17 AM WAX ROOM SUPERVISOR [facility] BICARB ARTERIAL 27.1(H) 22 - 26 MMOL/L 09/03/2024 9:17 AM [facility] TOTAL CO2 CAPILLARY 28.7(H) 23 - 27 MMOL/L 09/03/2024 9:17 AM [facility] BE/BASE EXCESS 1.1 0 - 2 MMOL/L 09/03/2024 9:17 AM [facility] O2 Saturation 94(L) 95 - 98 % 09/03/2024 9:17 AM [facility] HEATHER TEST POSITIVE 09/03/2024 9:09 AM [facility] OXYGEN STATUS NASAL CANULA 9:09 AM [facility] DRAW SITE ARTERIAL LT RADIAL 09/03/2024 9:09 AM [facility] 09/03/2024 9:09 AM [facility] us Marlin Henriquez DEFENSE ATTORNEY LABORATORY Final Re sult [facility] [address] [place] [address], [phone] * (ABNORMAL) COMPREHENSIVE METABOLIC PANEL (09/03/2024 5:06 AM [facility]) SODIUM S/P/B 145 136 - 145 MMOL/L 09/03/2024 5:56 AM [facility] POTASSIUM S/P/B 4.1 3.5 - 5.1 MMOL/L 09/03/2024 5:56 AM [facility] CHLORIDE S/P/B 112 97 - 115 MMOL/L 09/03/2024 5:56 AM [facility] CO2 28.3 21.0 - 32.0 MMOL/L 09/03/2024 5:56 AM [facility] GLUCOSE 218(H) 74 - 106 MG/DL 09/03/2024 5:56 AM [facility] BUN 56(H) 7 - 18 MG/DL 09/03/2024 5:56 AM [facility] CREATININE S/P/B 1.81(H) 0.70 - 1.30 MG/DL 09/03/2024 5:56 AM [facility] CALCIUM S/P/B 9.8 8.5 - 10.1 MG/DL 09/03/2024 5:56 AM [facility] BILIRUBIN TOTAL S/P/B 1.7(H) 0.2 - 1.0 MG/DL 09/03/2024 5:56 AM [facility] ALKALINE PHOSPHATASE S/P/B 129(H) 45 - 115 U/L 09/03/2024 5:56 AM [facility] AST 23 15 - 37 U/L 09/03/2024 5:56 AM [facility] ALT 21 16 - 61 U/L 09/03/2024 5:56 AM [facility] TOTAL PROTEIN S/P/B 8.3(H) 6.4 - 8.2 G/DL 09/03/2024 5:56 AM [facility] ALBUMIN S/P/B 3.0(L) 3.4 - 5.0 G/DL 09/03/2024 5:56 AM [facility] ANION GAP 4.7 2.0 - 10.0 MMOL/L 09/03/2024 5:56 AM [facility] OSMOLALITY (CALC) 322 MOSM/KG 025 5:56 AM [facility] Comment:REFERENCE RANGE NOT ESTABLISHED GFR ESTIMATE 40(L) >90 ML/MIN/1. 73 M2 09/03/2024 5:56 AM [facility] GFR NOTES GFR REFERENCE S: 09/03/2024 5:56 AM [facility] Comment: THE ESTIMATED GFR IS [...] FAILURE: <15 ml/min/1.73 m2 09/03/2024 5:06 AM WAX ROOM SUPERVISOR Zaria Thacker [facility] Final R esult Performing Organization Address [facility] de Phone Number [facility] [address] [place] [address], [phone] * (ABNORMAL) PROTHROMBIN TIME, VENOUS (09/03/2024 5:06 AM WAX ROOM SUPERVISOR) PROTIME 30.2(H) 9.4 - 12.5 SEC 09/03/2024 6:07 AM WAX ROOM SUPERVISOR [facility] INR 2.6(H) 0.8 - 1.1 09/03/2024 6:07 AM WAX ROOM SUPERVISOR [facility] 09/03/2024 5:06 AM WAX ROOM SUPERVISOR Zaria Thacker [facility] Final R esult Performing Organization Address [facility] de Phone Number [facility] [address] [place] [address], [phone] * (ABNORMAL) CBC W/DIFF AUTOMATED (09/03/2024 5:06 AM WAX ROOM SUPERVISOR) WBC 13.49(H) 4.00 - 10.80 x10'3/uL 09/03/2024 5:28 AM WAX ROOM SUPERVISOR [facility] RBC 4.17(L) 4.50 - 6.10 x10'6/uL 09/03/2024 5:28 AM WAX ROOM SUPERVISOR [facility] HGB 11.9(L) 12.0 - 16.0 G/DL 09/03/2024 5:28 AM [facility] HCT 39.1 37.0 - 52.0 % 09/03/2024 5:28 AM [facility] MCV 93.8 78.0 - 100.0 FL 09/03/2024 5:28 AM [facility] MCH 28.5 27.0 - 31.0 PG 09/03/2024 5:28 AM [facility] MCHC 30.4(L) 33.0 - 36.0 G/DL 09/03/2024 5:28 AM [facility] RDW 16.1(H) 11.5 - 14.5 % 09/03/2024 5:28 AM [facility] PLT 111(L) 150 - 350 x10'3/uL 09/03/2024 5:28 AM [facility] MPV 11.9(H) 7.4 - 10.4 FL 09/03/2024 5:28 AM [facility] DIFFERENTIAL TYPE MANUAL DIFFERENTIAL 09/03/2024 7:07 AM [facility] NRBC % 0.0 % 09/03/2024 7:07 AM [facility] SEG NEUTROPHILS 78 % 7:07 AM [facility] LYMPHOCYTES 1 % 09/03/2024 7:07 AM [facility] MONOCYTES 14 % 09/03/2024 7:07 AM [facility] EOSINOPHILS 0 % 09/03/2024 7:07 AM [facility] BASOPHILS 0 % 09/03/2024 7:07 AM [facility] BANDS 6 % 09/03/2024 7:07 AM [facility] METAMYELOCYTES 1 % 09/03/2024 7:07 AM [facility] ABS. NEUTROPHILS 11.33(H) 1.60 - 8.30 x10'3/uL 09/03/2024 7:07 AM [facility] ABS. LYMPHOCYTES 0.13(L) 0.80 - 4.70 x10'3/uL 09/03/2024 7:07 AM [facility] ABS. MONOCYTES 1.89(H) 0.00 - 1.50 x10'3/uL 09/03/2024 7:07 AM WAX ROOM SUPERVISOR [facility] ABS. EOSINOPHILS 0.00 0.00 - 0.40 x10'3/uL 09/03/2024 7:07 AM WAX ROOM SUPERVISOR [facility] ABS. BASOPHILS 0.00 0.00 - 0.20 x10'3/uL 09/03/2024 7:07 AM [facility] ABS. METAMYELOCYTES 0.13(H) 0.00 x10'3/uL 09/03/2024 7:07 AM [facility] ABS. NUCLEATED RBC'S 0.00 0.00 - 0.01 x10'3/uL 09/03/2024 7:07 AM [facility] RBC MORPHOLOGY SLIDE REVIEWED 2024 7:07 AM [facility] ANISO SLIGHT 09/03/2024 7:07 AM [facility] POIKLO SLIGHT 09/03/2024 7:07 AM [facility] OVALOCYTES PRESENT 09/03/2024 7:07 AM [facility] PLT EST. DECREASED 09/03/2024 7:07 AM [facility] 09/03/2024 5:06 AM WAX ROOM SUPERVISOR Zaria Thacker [facility] Final R esult [facility] [address] [place] [address], [phone] * (ABNORMAL) POCT glucose (09/03/2024 4:44 AM WAX ROOM SUPERVISOR) GLUCOSE POC 190(H) 70 - 109 09/03/2024 4:46 AM WAX ROOM SUPERVISOR [facility] 09/03/2024 4:44 AM WAX ROOM SUPERVISOR Jean Lindsay MD POCT ORDERABLES - DEVICE Fin al Result Performing Organization Address [facility] de Phone Number [facility] [address] [place] [address], [place] [phone] * (ABNORMAL) PROTIME/INR, VENOUS (09/03/2024 12:50 AM WAX ROOM SUPERVISOR) PROTIME 38.9(H) 9.4 - 12.5 SEC 09/04/2024 1:30 AM WAX ROOM SUPERVISOR [facility] INR 3.3(H) 0.8 - 1.1 09/04/2024 1:30 AM WAX ROOM SUPERVISOR [facility] 09/03/2024 12:5 0 AM WAX ROOM SUPERVISOR us Juan Francisco Rubi MD LABORATORY Final Result Performing Organization Address [facility] de Phone Number [facility] [address] [place] [address], [phone] * (ABNORMAL) HEPARIN, ANTI XA, UFH (09/03/2024 12:50 AM WAX ROOM SUPERVISOR) HEPARIN ANTI XA UFH 0.05(L) 0.30 - 0.70 IU/ML 09/04/2024 1:30 AM WAX ROOM SUPERVISOR [facility] Comment: UFH Therapeutic Anti Xa Ranges: Medical Therapeutic Range: 0.30 - 0.70 IU/mL Cardiac Therapeutic Range: 0.30 - 0.50 IU/mL Neuro Therapeutic Range: 0.20 - 0.40 IU/mL 09/03/2024 12:5 0 AM WAX ROOM SUPERVISOR Juan Francisco Rubi MD LABORATORY Final Result [facility] [address] [place] [address], [phone] * (ABNORMAL) RENAL FUNCTION PANEL (09/02/2024 11:25 PM WAX ROOM SUPERVISOR) SODIUM S/P/B 145 136 - 145 MMOL/L 09/03/2024 12:01 AM [facility] POTASSIUM S/P/B 4.1 3.5 - 5.1 MMOL/L 09/03/2024 12:01 AM [facility] CHLORIDE S/P/B 112 97 - 115 MMOL/L 09/03/2024 12:01 AM [facility] CO2 29.6 21.0 - 32.0 MMOL/L 09/03/2024 12:01 AM [facility] GLUCOSE 238(H) 74 - 106 MG/DL 09/03/2024 12:01 AM [facility] BUN 56(H) 7 - 18 MG/DL 09/03/2024 12:01 AM [facility] CREATININE S/P/B 1.90(H) 0.70 - 1.30 MG/DL 09/03/2024 12:01 AM [facility] CALCIUM S/P/B 9.3 8.5 - 10.1 MG/DL 09/03/2024 12:01 AM [facility] ALBUMIN S/P/B 2.9(L) 3.4 - 5.0 G/DL 09/03/2024 12:01 AM [facility] PHOSPHORUS 3.1 2.5 - 4.9 MG/DL 09/03/2024 12:01 AM [facility] ANION GAP 3.4 2.0 - 10.0 MMOL/L 09/03/2024 12:01 AM [facility] OSMOLALITY (CALC) 323 MOSM/KG 025 12:01 AM WAX ROOM SUPERVISOR [facility] Comment:REFERENCE RANGE NOT ESTABLISHED GFR ESTIMATE 37(L) >90 ML/MIN/1. 73 M2 09/03/2024 12:01 AM WAX ROOM SUPERVISOR [facility] GFR NOTES GFR REFERENCE S: 09/03/2024 12:01 AM WAX ROOM SUPERVISOR [facility] Comment: THE ESTIMATED GFR IS CALCULATED [...] <15 ml/min/1.73 m2 09/02/2024 11:2 5 PM WAX ROOM SUPERVISOR us Marlin Henriquez DEFENSE ATTORNEY LABORATORY Final Re sult Performing Organization Address City/[facility]/ZIP Co de Phone Number [facility] [address] [place] [address], [phone] * (ABNORMAL) POCT glucose (09/02/2024 8:47 PM WAX ROOM SUPERVISOR) GLUCOSE POC 195(H) 70 - 109 09/02/2024 8:59 PM WAX ROOM SUPERVISOR [facility] 09/02/2024 8:47 PM WAX ROOM SUPERVISOR us Jean Lindsay MD POCT ORDERABLES - DEVICE Fin al Result Performing Organization Address City/[facility]/ZIP Co de Phone Number [facility] [address] [place] [address], [place] [phone] * (ABNORMAL) POCT glucose (09/02/2024 4:07 PM WAX ROOM SUPERVISOR) GLUCOSE POC 238(H) 70 - 109 09/02/2024 4:22 PM WAX ROOM SUPERVISOR [facility] 09/02/2024 4:07 PM WAX ROOM SUPERVISOR us Jean Lindsay MD POCT ORDERABLES - DEVICE Fin al Result Performing Organization Address [facility] Co de Phone Number [facility] [address] [place] [address], [place] [phone] * (ABNORMAL) POCT glucose (09/02/2024 11:56 AM WAX ROOM SUPERVISOR) GLUCOSE POC 208(H) 70 - 109 09/02/2024 12:15 PM WAX ROOM SUPERVISOR [facility] 09/02/2024 11:5 6 AM WAX ROOM SUPERVISOR Jean Lindsay MD POCT ORDERABLES - DEVICE Fin al Result Performing Organization Address [facility] de Phone Number [facility] [address] [place] [address], [place] [phone] * (ABNORMAL) COMPREHENSIVE METABOLIC PANEL (09/02/2024 7:41 AM WAX ROOM SUPERVISOR) SODIUM S/P/B 145 136 - 145 MMOL/L 09/02/2024 8:30 AM [facility] POTASSIUM S/P/B 4.1 3.5 - 5.1 MMOL/L 09/02/2024 8:30 AM [facility] CHLORIDE S/P/B 113 97 - 115 MMOL/L 09/02/2024 8:30 AM [facility] CO2 25.8 21.0 - 32.0 MMOL/L 09/02/2024 8:30 AM [facility] GLUCOSE 228(H) 74 - 106 MG/DL 09/02/2024 8:30 AM [facility] BUN 68(H) 7 - 18 MG/DL 09/02/2024 8:30 AM [facility] CREATININE S/P/B 2.00(H) 0.70 - 1.30 MG/DL 09/02/2024 8:30 AM [facility] CALCIUM S/P/B 9.8 8.5 - 10.1 MG/DL 09/02/2024 8:30 AM [facility] BILIRUBIN TOTAL S/P/B 2.0(H) 0.2 - 1.0 MG/DL 09/02/2024 8:30 AM [facility] ALKALINE PHOSPHATASE S/P/B 139(H) 45 - 115 U/L 09/02/2024 8:30 AM [facility] AST 18 15 - 37 U/L 09/02/2024 8:30 AM [facility] ALT 21 16 - 61 U/L 09/02/2024 8:30 AM [facility] TOTAL PROTEIN S/P/B 8.6(H) 6.4 - 8.2 G/DL 09/02/2024 8:30 AM [facility] ALBUMIN S/P/B 3.1(L) 3.4 - 5.0 G/DL 09/02/2024 8:30 AM [facility] ANION GAP 6.2 2.0 - 10.0 MMOL/L 09/02/2024 8:30 AM [facility] OSMOLALITY (CALC) 327 MOSM/KG 025 8:30 AM [facility] Comment:REFERENCE RANGE NOT ESTABLISHED GFR ESTIMATE 35(L) >90 ML/MIN/1. 73 M2 09/02/2024 8:30 AM [facility] GFR NOTES GFR REFERENCE S: 09/02/2024 8:30 AM [facility] Comment: THE ESTIMATED GFR IS [...] m2 G5,KIDNEY FAILURE: <15 ml/min/1.73 m2 09/02/2024 7:41 AM WAX ROOM SUPERVISOR Zaria Thacker [facility] Final R esult Performing Organization Address [facility] de Phone Number [facility] [address] [place] [address], [place] [phone] * (ABNORMAL) PROTHROMBIN TIME, VENOUS (09/02/2024 7:41 AM WAX ROOM SUPERVISOR) PROTIME 22.6(H) 9.4 - 12.5 SEC 09/02/2024 8:25 AM WAX ROOM SUPERVISOR [facility] INR 1.9(H) 0.8 - 1.1 09/02/2024 8:25 AM WAX ROOM SUPERVISOR [facility] 09/02/2024 7:41 AM WAX ROOM SUPERVISOR Zaria Thacker [facility] Final R esult Performing Organization Address [facility] Co de Phone Number [facility] [address] [place] [address], [place] [phone] * (ABNORMAL) CBC W/DIFF AUTOMATED (09/02/2024 7:41 AM WAX ROOM SUPERVISOR) WBC 13.53(H) 4.00 - 10.80 x10'3/uL 09/02/2024 8:05 AM WAX ROOM SUPERVISOR [facility] RBC 4.32(L) 4.50 - 6.10 x10'6/uL 09/02/2024 8:05 AM [facility] HGB 12.5 12.0 - 16.0 G/DL 09/02/2024 8:05 AM [facility] HCT 40.1 37.0 - 52.0 % 09/02/2024 8:05 AM [facility] MCV 92.8 78.0 - 100.0 FL 09/02/2024 8:05 AM [facility] MCH 28.9 27.0 - 31.0 PG 09/02/2024 8:05 AM [facility] MCHC 31.2(L) 33.0 - 36.0 G/DL 09/02/2024 8:05 AM [facility] RDW 15.9(H) 11.5 - 14.5 % 09/02/2024 8:05 AM [facility] PLT 130(L) 150 - 350 x10'3/uL 09/02/2024 8:05 AM [facility] MPV 12.9(H) 7.4 - 10.4 FL 09/02/2024 8:05 AM [facility] DIFFERENTIAL TYPE AUTOMATED DIFFERENTIAL 09/02/2024 8:05 AM [facility] SEG NEUTROPHILS 79.9 % 8:05 AM [facility] LYMPHOCYTES 6.1 % 09/02/2024 8:05 AM [facility] MONOCYTES 13.5 % 09/02/2024 8:05 AM [facility] EOSINOPHILS 0.0 % 09/02/2024 8:05 AM [facility] BASOPHILS 0.1 % 09/02/2024 8:05 AM [facility] IMMATURE GRANS % 0.4 % 09/02/19 8:05 AM [facility] ABS. NEUTROPHILS 10.80(H) 1.60 - 8.30 x10'3/uL 09/02/2024 8:05 AM WAX ROOM SUPERVISOR [facility] ABS. LYMPHOCYTES 0.83 0.80 - 4.70 x10'3/uL 09/02/2024 8:05 AM [facility] ABS. MONOCYTES 1.82(H) 0.00 - 1.50 x10'3/uL 09/02/2024 8:05 AM [facility] ABS. EOSINOPHILS 0.00 0.00 - 0.40 x10'3/uL 09/02/2024 8:05 AM [facility] ABS. BASOPHILS 0.02 0.00 - 0.20 x10'3/uL 09/02/2024 8:05 AM [facility] ABS. IMMATURE GRANULOCYTES 0.06(H) 0.00 - 0.03 x10'3/uL 09/02/2024 8:05 AM [facility] ABS. NUCLEATED RBC'S 0.00 0.00 - 0.01 x10'3/uL 09/02/2024 8:05 AM [facility] NRBC % 0.0 % 09/02/2024 8:05 AM WAX ROOM SUPERVISOR [facility] 09/02/2024 7:41 AM WAX ROOM SUPERVISOR us Zaria Thacker [facility] Final R esult Performing Organization Address City/[facility] de Phone Number [facility] [address] [place] [address], [phone] * (ABNORMAL) POCT glucose (09/02/2024 6:26 AM WAX ROOM SUPERVISOR) [facility] GLUCOSE POC 184(H) 70 - 109 09/02/2024 6:32 AM WAX ROOM SUPERVISOR [facility] 09/02/2024 6:26 AM WAX ROOM SUPERVISOR Jean Lindsay MD POCT ORDERABLES - DEVICE Fin al Result Performing Organization Address City/State/[facility] Co de Phone Number [facility] [address] [place] [address], [place] [phone] * (ABNORMAL) POCT glucose (09/02/2024 12:59 AM WAX ROOM SUPERVISOR) GLUCOSE POC 271(H) 70 - 109 09/02/2024 1:03 AM WAX ROOM SUPERVISOR [facility] 09/02/2024 12:5 9 AM WAX ROOM SUPERVISOR Jean Lindsay MD POCT ORDERABLES - DEVICE Fin al Result Performing Organization Address [facility] de Phone Number [facility] [address] [place] [address], [place] [phone] * (ABNORMAL) RENAL FUNCTION PANEL (09/02/2024 12:30 AM WAX ROOM SUPERVISOR) SODIUM S/P/B 143 136 - 145 MMOL/L 09/02/2024 12:52 AM [facility] POTASSIUM S/P/B 4.2 3.5 - 5.1 MMOL/L 09/02/2024 12:52 AM [facility] CHLORIDE S/P/B 112 97 - 115 MMOL/L 09/02/2024 12:52 AM [facility] CO2 27.0 21.0 - 32.0 MMOL/L 09/02/2024 12:52 AM [facility] GLUCOSE 282(H) 74 - 106 MG/DL 09/02/2024 12:52 AM [facility] BUN 68(H) 7 - 18 MG/DL 09/02/2024 12:52 AM [facility] CREATININE S/P/B 2.26(H) 0.70 - 1.30 MG/DL 09/02/2024 12:52 AM [facility] CALCIUM S/P/B 9.6 8.5 - 10.1 MG/DL 09/02/2024 12:52 AM [facility] ALBUMIN S/P/B 3.0(L) 3.4 - 5.0 G/DL 09/02/2024 12:52 AM [facility] PHOSPHORUS 3.6 2.5 - 4.9 MG/DL 09/02/2024 12:52 AM [facility] ANION GAP 4.0 2.0 - 10.0 MMOL/L 09/02/2024 12:52 AM [facility] OSMOLALITY (CALC) 326 MOSM/KG 025 12:52 AM [facility] Comment:REFERENCE RANGE NOT ESTABLISHED GFR ESTIMATE 30(L) >90 ML/MIN/1. 73 M2 09/02/2024 12:52 AM [facility] GFR NOTES GFR REFERENCE S: 09/02/2024 12:52 AM [facility] Comment: THE ESTIMATED GFR IS [...] m2 G5,KIDNEY FAILURE: <15 ml/min/1.73 m2 09/02/2024 12:3 0 AM [employer] SUPERVISOR us Marlin Henriquez [employer]NEY [employer]ORATORY Final Re sult [facility] [address] [place] [address], [id number] * (ABNORMAL) POCT glucose (09/01/2024 9:07 PM [employer] RO[employer] SUPERVISOR) GLUCOSE POC 344(H) 70 - 109 09/01/2024 9:22 PM [employer] SUPERVISOR [facility] 09/01/2024 9:07 PM [employer] ROOM SUPERVISOR us Jean Lindsay MD POCT ORDERABLES - DEVICE Fin al Result Performing Organization Address [facility] de Phone Number [facility] [address] [place] [address], [place] [phone] * (ABNORMAL) POCT glucose (09/01/2024 4:14 PM [employer] RO[employer] SUPERVISOR) GLUCOSE POC 321(H) 70 - 109 09/01/2024 4:16 PM [employer] RO[employer] SUPERVISOR [facility] 09/01/2024 4:14 PM [employer] RO[employer] SUPERVISOR us Jean Lindsay MD POCT ORDERABLES - DEVICE Fin al Result Performing Organization Address [facility] de Phone Number [facility] [address] [place] [address], [place] [phone] * (ABNORMAL) POCT glucose (09/01/2024 11:42 AM [employer] RO[employer] SUPERVISOR) GLUCOSE POC 237(H) 70 - 109 09/01/2024 11:52 AM [employer] RO[employer] SUPERVISOR [facility] 09/01/2024 11:4 2 AM [employer] RO[employer] SUPERVISOR us Jean Lindsay MD POCT ORDERABLES - DEVICE Fin al Result Performing Organization Address [facility] de Phone Number [facility] [address] [place] [address], [place] [phone] * CULTURE, URINE (09/01/2024 11:10 AM [employer] ROOM SUPERVISOR) SPEC DESCRIPTION URINE CLEAN CATCH 09/01/2024 2:58 PM [employer] ROOM SUPERVISOR [facility] SPECIAL REQUESTS NO SPECIAL REQUEST 09/01/2024 2:58 PM [employer] ROOM SUPERVISOR [facility] CULTURE RESULT NO GROWTH (< OR = 1,000 CFU/ML) 09/03/2024 8:35 AM [employer] ROOM SUPERVISOR [facility] URINE SPECIMEN OBTAINED BY CLEAN CATCH PROCEDURE / Unknown 09/01/2024 11:10 AM [employer] ROOM SUPERVISOR 09/01/2024 3:11 PM [employer] ROOM SUPERVISOR us Jean Lindsay MD MICROBIOLOGY - GENERAL ORDER BAKARI Final Result [facility] [address] [place] [address], [phone] * XR SPEECH SWALLOW SJS ONLY (09/01/2024 9:59 AM [employer] RO[employer] SUPERVISOR) Anatomical Region Laterality Modality NA Fluoroscopy 09/01/2024 4:53 PM [employer] RO[employer] SUPERVISOR Impressions 09/01/2024 5:05 PM [employer] ROOM SUPERVISOR Impression: 1. Impending silent aspiration with nectar [...] Munoz on 09/01/2024 4:53 PM Ordered By: JEAN LINDSAY Interpreted By: KESHA Munoz, 09/01/2024 4:53 PM Narrative 09/01/2024 5:05 PM [employer] ROOM SUPERVISOR [facility] [address] [place], [place] [address] Date: 09/01/2024 4:54 PM Exam: Video assisted [...] of laryngeal penetration. No evidence of aspiration. [place] barium consistency via spoon demonstrated premature spillage to the vallecula before initiation of swallow. No evidence of laryngeal penetration. No evidence of aspiration. [place] barium consistency via straw demonstrated premature spillage [...] This is consistent with impending silent aspiration. [place] barium consistency via open cup demonstrated premature spillage to the vallecula and piriform sinuses before initiation of swallow. No evidence of laryngeal penetration. No evidence of aspiration. [place] barium consistency via straw with a bolus [...] Procedure Note Victorino Dowd MD - 09/01/[address] [address] Date: 09/01/2024 4:54 PM Exam: Video assisted [...] evidence oflaryngeal penetration. No evidence of aspiration. [place] barium consistency via spoon demonstrated premature spillage to thevallecula before initiation of swallow. No evidence of laryngealpenetration. No evidence of aspiration. [place] barium consistency viastraw demonstrated premature spillage to [...] elicited. This is consistent withimpending silent aspiration. [place] barium consistency via open cupdemonstrated premature spillage to the vallecula and piriform sinusesbefore initiation of swallow. No evidence of laryngeal penetration. Noevidence of aspiration. [place] barium consistency via straw with a bolushold [...] Munoz on 09/01/2024 4:53 PM Ordered By: JEAN LINDSAY Interpreted By: KESHA Munoz, 09/01/2024 4:53 PM us Jean Lindsay MD FLUOROSCOPY Final Result * ANTI-GBM (GLOMERULAR BASEMENT MEMBRANE AB) (09/01/2024 8:19 AM WAX ROOM SUPERVISOR) ANTI-GBM <1.0 <1.0 AI 09/04/2024 8:28 PM WAX ROOM SUPERVISOR SHIFT MAURA MARTIN Comment: ?Value ?? Interpretation ? <1.0 AI: No Antibody Detected ?>or=1.0 AI: Antibody Detected Test Performed by Teagan Martinez, [employer] [facility], [address] [place] [address] Bill Blackmon M.D., Ph.D., Director of Laboratories , [facility] [id number] 09/01/2024 8:19 AM WAX ROOM SUPERVISOR us Ludy Morrell MD LABORATORY Final Result [facility] [place] [address] [place] [address], [place] [phone] * ANCA VASCULITIS PANEL (09/01/2024 8:19 AM WAX ROOM SUPERVISOR) MYELOPEROXIDASE AB <1.0 <1.0 AI 2024 8:51 PM WAX ROOM SUPERVISOR Kuaiyong AMMY WELDON Comment: ?Value ?? Interpretation ? <1.0 [...] ANCA <1.0 <1.0 AI 09/04/2024 8:51 PM WAX ROOM SUPERVISOR SHIFT ALEXIS WELDON Comment: ? Value ?Interpretation ? <1.0 AI: No Antibody Detected ?>or=1.0 AI: Antibody Detected Autoantibodies to proteinase-3 (TN-3) are accepted as characteristic for granulomatosis with polyangiitis (GPA, Sherie's), and are detectable in 95% of the histologically proven cases. The cytoplasmic IFA pattern, (c-ANCA), is based largely on autoantibody to TN-3 which serves as the primary antigen. These autoantibodies are present in active disease. Test Performed by Teagan Martinez [employer] [facility], [address] [place], [place] Bill Blackmon M.D., Ph.D., Director of Laboratories , [facility] [id number] 09/01/2024 8:19 AM WAX ROOM SUPERVISOR Ludy Morrell MD LABORATORY Final Result Performing Organization Address City/[facility]/ZIP Co de Phone Number [facility] [address] , [place] [phone] * THYROID STIM HORMONE, TSH (09/01/2024 8:19 AM WAX ROOM SUPERVISOR) TSH 2.000 0.358 - 3.740 uIU/ML 09/01/2024 9:11 AM WAX ROOM SUPERVISOR [facility] Comment: ASSAY PERFORMED BY CHEMILUMINESCENCE METHODOLOGY USING [employer] [facility]. PATIENT RESULTS DETERMINED BY ASSAYS USING DIFFERENT MANUFACTURERS FOR METHODS MAY NOT BE COMPARABLE. 09/01/2024 8:19 AM WAX ROOM SUPERVISOR Zaria Thacker [facility] LABORATORY Final R esult Performing Organization Address [facility] Co de Phone Number [facility] [address] [place] [address], [place] [phone] * (ABNORMAL) HEMOGLOBIN, GLYCATED (09/01/2024 8:19 AM WAX ROOM SUPERVISOR) HGB A1C 7.0(H) <5.7 % 09/01/2024 9:13 AM WAX ROOM SUPERVISOR [facility] ESTIMATED AVG GLUCOSE 154(H) 74 - 114 MG/DL 09/01/2024 9:13 AM WAX ROOM SUPERVISOR [facility] 09/01/2024 8:19 AM WAX ROOM SUPERVISOR Zaria Thacker [facility] LABORATORY Final R esult Performing Organization Address City/[facility]/ZIP Co de Phone Number [facility] [address] [place] [address], [phone] * MAGNESIUM (09/01/2024 8:19 AM WAX ROOM SUPERVISOR) Pathologist [facility] MAGNESIUM 2.5 1.6 - 2.6 MG/DL 09/01/2024 9:11 AM [facility] 09/01/2024 8:19 AM WAX ROOM SUPERVISOR Zaria Thacker [facility] LABORATORY Final R esult [facility] [address] [place] [address], [phone] * (ABNORMAL) COMPREHENSIVE METABOLIC PANEL (09/01/2024 8:19 AM WAX ROOM SUPERVISOR) Pathologist [facility] SODIUM S/P/B 141 136 - 145 MMOL/L 09/01/2024 9:11 AM [facility] POTASSIUM S/P/B 4.9 3.5 - 5.1 MMOL/L 09/01/2024 9:11 AM [facility] CHLORIDE S/P/B 110 97 - 115 MMOL/L 09/01/2024 9:11 AM [facility] CO2 21.2 21.0 - 32.0 MMOL/L 09/01/2024 9:11 AM [facility] GLUCOSE 121(H) 74 - 106 MG/DL 09/01/2024 9:11 AM [facility] BUN 70(H) 7 - 18 MG/DL 09/01/2024 9:11 AM [facility] CREATININE S/P/B 2.28(H) 0.70 - 1.30 MG/DL 09/01/2024 9:11 AM [facility] CALCIUM S/P/B 9.7 8.5 - 10.1 MG/DL 09/01/2024 9:11 AM [facility] BILIRUBIN TOTAL S/P/B 2.1(H) 0.2 - 1.0 MG/DL 09/01/2024 9:11 AM [facility] ALKALINE PHOSPHATASE S/P/B 135(H) 45 - 115 U/L 09/01/2024 9:11 AM [facility] AST 23 15 - 37 U/L 09/01/2024 9:11 AM [facility] ALT 20 16 - 61 U/L 09/01/2024 9:11 AM [facility] TOTAL PROTEIN S/P/B 8.0 6.4 - 8.2 G/DL 09/01/2024 9:11 AM [facility] ALBUMIN S/P/B 3.0(L) 3.4 - 5.0 G/DL 09/01/2024 9:11 AM [facility] ANION GAP 9.8 2.0 - 10.0 MMOL/L 09/01/2024 9:11 AM [facility] OSMOLALITY (CALC) 314 MOSM/KG 025 9:11 AM [facility] Comment:REFERENCE RANGE NOT ESTABLISHED GFR ESTIMATE 30(L) >90 ML/MIN/1. 73 M2 09/01/2024 9:11 AM [facility] GFR NOTES GFR REFERENCE S: 09/01/2024 9:11 AM [facility] Comment: THE ESTIMATED GFR IS [...] ml/min/1.73 m2 G5,KIDNEY FAILURE: <15 ml/min/1.73 m2 09/01/2024 8:19 AM WAX ROOM SUPERVISOR Zaria Good Shari [facility] LABORATORY Final R esult Performing Organization Address [facility] Co de Phone Number [facility] [address] [place] [address], [place] [phone] * (ABNORMAL) PROTHROMBIN TIME, VENOUS (09/01/2024 8:19 AM WAX ROOM SUPERVISOR) PROTIME 18.6(H) 9.4 - 12.5 SEC 09/01/2024 8:57 AM WAX ROOM SUPERVISOR [facility] INR 1.6(H) 0.8 - 1.1 09/01/2024 8:57 AM WAX ROOM SUPERVISOR [facility] 09/01/2024 8:19 AM WAX ROOM SUPERVISOR Zaria Thacker [facility] LABORATORY Final R [employer] Performing Organization Address [facility] de Phone Number [facility] [address] [place] [address], [place] [phone] * (ABNORMAL) CBC W/DIFF AUTOMATED (09/01/2024 8:19 AM WAX ROOM SUPERVISOR) WBC 11.52(H) 4.00 - 10.80 x10'3/uL 09/01/2024 8:45 AM WAX ROOM SUPERVISOR [facility] RBC 4.03(L) 4.50 - 6.10 x10'6/uL 09/01/2024 8:45 AM WAX ROOM SUPERVISOR [facility] HGB 11.6(L) 12.0 - 16.0 G/DL 09/01/2024 8:45 AM [facility] HCT 36.8(L) 37.0 - 52.0 % 09/01/2024 8:45 AM [facility] MCV 91.3 78.0 - 100.0 FL 09/01/2024 8:45 AM [facility] MCH 28.8 27.0 - 31.0 PG 09/01/2024 8:45 AM [facility] MCHC 31.5(L) 33.0 - 36.0 G/DL 09/01/2024 8:45 AM [facility] RDW 16.0(H) 11.5 - 14.5 % 09/01/2024 8:45 AM [facility] PLT 100(L) 150 - 350 x10'3/uL 09/01/2024 8:45 AM [facility] MPV 12.7(H) 7.4 - 10.4 FL 09/01/2024 8:45 AM [facility] DIFFERENTIAL TYPE AUTOMATED DIFFERENTIAL 09/01/2024 8:45 AM [facility] SEG NEUTROPHILS 81.9 % 8:45 AM [facility] LYMPHOCYTES 5.4 % 09/01/2024 8:45 AM [facility] MONOCYTES 12.0 % 09/01/2024 8:45 AM [facility] EOSINOPHILS 0.0 % 09/01/2024 8:45 AM [facility] BASOPHILS 0.2 % 09/01/2024 8:45 AM [facility] IMMATURE GRANS % 0.5 % 09/01/19 8:45 AM [facility] ABS. NEUTROPHILS 9.44(H) 1.60 - 8.30 x10'3/uL 09/01/2024 8:45 AM [facility] ABS. LYMPHOCYTES 0.62(L) 0.80 - 4.70 x10'3/uL 09/01/2024 8:45 AM [facility] ABS. MONOCYTES 1.38 0.00 - 1.50 x10'3/uL 09/01/2024 8:45 AM [facility] ABS. EOSINOPHILS 0.00 0.00 - 0.40 x10'3/uL 09/01/2024 8:45 AM WAX ROOM SUPERVISOR [facility] ABS. BASOPHILS 0.02 0.00 - 0.20 x10'3/uL 09/01/2024 8:45 AM WAX ROOM SUPERVISOR [facility] ABS. IMMATURE GRANULOCYTES 0.06(H) 0.00 - 0.03 x10'3/uL 09/01/2024 8:45 AM WAX ROOM SUPERVISOR [facility] ABS. NUCLEATED RBC'S 0.00 0.00 - 0.01 x10'3/uL 09/01/2024 8:45 AM WAX ROOM SUPERVISOR [facility] NRBC % 0.0 % 09/01/2024 8:45 AM WAX ROOM SUPERVISOR [facility] 09/01/2024 8:19 AM WAX ROOM SUPERVISOR Zaria Thacker [facility] LABORATORY Final R esult Performing Organization Address City/[facility]/ZIP Co de Phone Number [facility] [address] [place] [address], [id number] * POCT glucose (09/01/2024 6:41 AM WAX ROOM SUPERVISOR) GLUCOSE POC 101 70 - 109 09/01/2024 6:54 AM WAX ROOM SUPERVISOR [facility] Comment:Will Repeat Test 09/01/2024 6:41 AM WAX ROOM SUPERVISOR Jean Lindsay MD POCT ORDERABLES - DEVICE Fin al Result Performing Organization Address [facility] Co de Phone Number [facility] [address] [place] [address], [id number] * POCT glucose (09/01/2024 12:55 AM WAX ROOM SUPERVISOR) GLUCOSE POC 80 70 - 109 09/01/2024 12:57 AM WAX ROOM SUPERVISOR [facility] 09/01/2024 12:5 5 AM WAX ROOM SUPERVISOR us Jean Lindsay MD POCT ORDERABLES - DEVICE Fin al Result [facility] [address] [place] [address], [id number] * US RETROPERITONEAL LTD (08/31/2024 10:20 PM WAX ROOM SUPERVISOR) Anatomical Region Laterality Modality Renal Ultrasound 09/01/2024 2:04 AM WAX ROOM SUPERVISOR Impressions 09/01/2024 2:06 AM WAX ROOM SUPERVISOR IMPRESSION: 1. ??No right-sided hydronephrosis. 2. ??Nonvisualized left kidney and suboptimally visualized right kidney. 3. ??Decompressed urinary bladder with Oneill catheter. Referred By: PROVIDER NON-STAFF Interpreted By: Ever Love MD, 09/01/2024 2:04 AM Narrative 09/01/2024 2:06 AM WAX ROOM SUPERVISOR [address] [address] EXAMINATION: Renal ultrasound EXAM DATE/TIME: 08/31/2024 10:03 PM REASON FOR EXAM: ??BRITTANY COMPARISON: CT abdomen pelvis 11/17/2023, renal ultrasound [...] Procedure Note Ever Love MD - 09/01/[address] [address] EXAMINATION: Renal ultrasound EXAM DATE/TIME: 08/31/2024 10:03 PM REASON FOR EXAM: BRITTANY COMPARISON: CT abdomen pelvis 11/17/2023, renal ultrasound [...] Love MD, 09/01/2024 2:04 AM us Ludy Morrell MD ULTRASOUND Final Result * POCT glucose (08/31/2024 6:34 PM WAX ROOM SUPERVISOR) [facility] GLUCOSE POC 81 70 - 109 08/31/2024 6:35 PM WAX ROOM SUPERVISOR [facility] 08/31/2024 6:34 PM WAX ROOM SUPERVISOR us Jean Lindsay MD POCT ORDERABLES - DEVICE Fin al Result [facility] [address] [place] [address], [phone] * CREATININE URINE RANDOM (08/31/2024 5:12 PM WAX ROOM SUPERVISOR) Pathologist [facility] CREATININE (U) 33.5 MG/DL 08/31/2024 5:38 PM WAX ROOM SUPERVISOR [facility] Comment:REFERENCE RANGE NOT ESTABLISHED URINE SPECIMEN / Unknown 08/31/2024 5:12 PM WAX ROOM SUPERVISOR us Ludy Morrell MD URINE ORDERABLES Final Result Performing Organization Address [facility]/ZIP Co de Phone Number [facility] [address] [place] [address], [id number] * SODIUM URINE RANDOM (08/31/2024 5:12 PM WAX ROOM SUPERVISOR) NA RANDOM (U) 88 MMOL/L 08/31/2024 5:38 PM WAX ROOM SUPERVISOR [facility] Comment:REFERENCE RANGE NOT ESTABLISHED URINE SPECIMEN / Unknown 08/31/2024 5:12 PM WAX ROOM SUPERVISOR Ludy Morrell MD URINE ORDERABLES Final Result Performing Organization Address [facility] de Phone Number [facility] [address] [place] [address], [id number] * (ABNORMAL) URINALYSIS (08/31/2024 5:12 PM WAX ROOM SUPERVISOR) COLOR (U) LIGHT BROWN 08/31/2024 5:34 PM WAX ROOM SUPERVISOR [facility] TRANSPARENCY SLIGHTLY CLOUDY 08/31/2024 5:34 PM [facility] SPECIFIC GRAVITY (U) 1.009 1.002 - 1.035 08/31/2024 5:34 PM [facility] U PH 5.0 5 - 8 08/31/2024 5:34 PM [facility] PROTEIN RANDOM (U) 10(A) NEGATIVE 08/31/2024 5:34 PM [facility] GLUCOSE (U) 30(A) NEGATIVE MG/DL 08/31/2024 5:34 PM [facility] KETONES MG/DL (U) NEGATIVE NEGATIVE 08/31/2024 5:34 PM [facility] BILIRUBIN (U) NEGATIVE NEGATIVE 08/31/2024 5:34 PM [facility] BLOOD (U) 3+(A) NEGATIVE 08/31/2024 5:34 PM WAX ROOM SUPERVISOR [facility] NITRITES NEGATIVE NEGATIVE 08/31/2024 5:34 PM WAX ROOM SUPERVISOR [facility] UROBILINOGEN NORMAL 0 - 1 EU/DL 08/31/2024 5:34 PM WAX ROOM SUPERVISOR [facility] LEUKOCYTES (U) 1+(A) NEGATIVE 08/31/2024 5:34 PM WAX ROOM SUPERVISOR [facility] RBC/HPF >182(H) 0 - 3 /HPF 08/31/2024 5:34 PM WAX ROOM SUPERVISOR [facility] Comment:PLEASE CALL THE LAB WITHIN 2 HOURS IF ACTUAL NUMBER OF CELLS IS REQUIRED. WBC/HPF 27(H) 0 - 6 /HPF 08/31/2024 5:34 PM WAX ROOM SUPERVISOR [facility] BACTERIA (U) PRESENT /HPF 08/31/2024 5:34 PM WAX ROOM SUPERVISOR [facility] SQUAMOUS EPITHELIALS <1 08/31/2024 5:34 PM WAX ROOM SUPERVISOR [facility] WBC CLUMPS PRESENT 08/31/2024 5:34 PM WAX ROOM SUPERVISOR [facility] HYALINE CASTS 28 08/31/2024 5:34 PM WAX ROOM SUPERVISOR [facility] URINE SPECIMEN / Unknown 08/31/2024 5:12 PM WAX ROOM SUPERVISOR Ludy Morrell MD URINE ORDERABLES Final Result Performing Organization Address City/State/[facility] Co de Phone Number [facility] [address] [place] [address], [phone] * USE ECHOCARDIOGRAM W CON (08/31/2024 2:02 PM WAX ROOM SUPERVISOR) Anatomical Region Laterality Modality NA Echocardiogram 08/31/2024 1:13 PM WAX ROOM SUPERVISOR Narrative 08/31/2024 11:02 PM WAX ROOM SUPERVISOR ?Echocardiography Report Pat.Name: ??OBIE SIMS ?Pat.ID: ?[id number] ? St.Date: ?? 08/31/2024 ? Refer.MD: ??[id number] NON-STAFF PROVIDER ?EWDPROV ?EWDPROV Exam Time: 1:13:00 [...] ?? Value ?223 g ? LV Mass [id number] ?? Value ?103 g/m2 ? RA Volume [...] 08/31/2024 Echocardiography Report Pat.Name: OBIE SIMS Pat.ID: [id number] St.Date: 08/31/2024 Refer.: [id number] NON-STAFF PROVIDER EWDPROV EWDPROV Exam Time: 1:13:00 PM Study Type:ECHO W/CONTRAST COMPLETE Height: 168 cm Weight: 110 kg BSA: 2.17 m2 Age: 12 1955,69Y Sex: M BP: 117/53 HR: 84 bpm Sonogrphr: Jose Cruz Tejada [facility] Pat. Stat.:Inpatient Room: 622 CPT [...] Mass 2D Value 223 g LV Mass Gndmh4P Value 103 g/m2 RA Volume Atrial Schaffer [...] 08/31/2024 11:02 PM Brit Gonzáles M.D. Zaria Thacker ACN-BC ECHO Final R esult * POCT glucose (08/31/2024 1:02 PM WAX ROOM SUPERVISOR) GLUCOSE POC 87 70 - 109 08/31/2024 1:03 PM WAX ROOM SUPERVISOR [facility] 08/31/2024 1:0 2 PM WAX ROOM SUPERVISOR us Jean Lindsay MD POCT ORDERABLES - DEVICE Fin al Result [facility] [address] [place] [address], [id number] * ECG 12 lead (08/31/2024 12:13 PM WAX ROOM SUPERVISOR) 08/31/2024 12:1 3 PM WAX ROOM SUPERVISOR Narrative [facility] - 09/01/2024 2:20 PM WAX ROOM SUPERVISOR ? [facility] ?[address] [place], [place] ??[address] ? Test Date: ?2024-08-31 Pat Name: ? OBIE SIMS ?Department: ?? 1 ? Room: ? 622AA Gender: ? Male ? Dot Etcher Apprentice: ?? Sc : ?1955 ? Requested By: ZARIA THACKER Order Number: [id number] ? Reading MD: ?? Domingo Parks ? Measurements Intervals ?[place] ? Rate: ? 80 ? P: ? TN: ? 0 ?QRS: ?-32 QRSD: ? 147 ?T: ?128 QT: ? 379 ? QTc: ?439 ? Interpretive Statements ATRIAL FIBRILLATION LEFT AXIS DEVIATION ??[QRS AXIS < -30] LEFT BUNDLE BRANCH BLOCK ??[120+ ms QRS DURATION, 80+ ms Q/S IN V1/V2, 85+ ms R IN I/aVL/V5/V6] ROOM SUPERVISOR Procedure Note Domingo Parks MD - 09/01/2024 [place] [address] [place] [address] Test Date: 2024-08-31 Pat Name: OBIE SIMS Department: 1 Room: [facility] Gender: Male Dot Etcher Apprentice: Ti : 1955 Requested By: ZARIA THACKER Order Number: [id number] Sage MD: Domingo Parks Measurements Intervals [place] Rate: 80 P: TN: 0 QRS: -32 QRSD: 147 T: 128 QT: 379 QTc: 439 Interpretive Statements ATRIAL FIBRILLATION LEFT AXIS DEVIATION [QRS AXIS < -30] LEFT BUNDLE BRANCH BLOCK [120+ ms QRS DURATION, 80+ ms Q/S IN V1/V2, 85+ms R IN I/aVL/V5/V6] ROOM SUPERVISOR us Zaria Thacker ACNP-BC ECG ORDERABLES Final R esult Performing Organization Address [facility]/ZIP Co de Phone Number [facility] * CK (CPK) (08/31/2024 10:35 AM WAX ROOM SUPERVISOR) CPK 154 39 - 308 U/L 08/31/2024 5:11 PM WAX ROOM SUPERVISOR [facility] 08/31/2024 10:3 5 AM WAX ROOM SUPERVISOR Ludy Morrell MD LABORATORY Final Result Performing Organization Address [facility] Co de Phone Number [facility] [address] [place] [address], [phone] * (ABNORMAL) PROTIME/INR, VENOUS (PROTHROMBIN TIME) (08/31/2024 10:35 AM WAX ROOM SUPERVISOR) PROTIME 20.9(H) 9.4 - 12.5 SEC 08/31/2024 11:30 AM WAX ROOM SUPERVISOR [facility] INR 1.8(H) 0.8 - 1.1 08/31/2024 11:30 AM WAX ROOM SUPERVISOR [facility] 08/31/2024 10:3 5 AM WAX ROOM SUPERVISOR Jean Lindsay MD LABORATORY Final Result Performing Organization Address [facility] Co de Phone Number [facility] [address] [place] [address], [place] [phone] * (ABNORMAL) PRO-BRAIN NATRIURETIC PEPTIDE (PRO BNP) (08/31/2024 10:35 AM WAX ROOM SUPERVISOR) PRO-B TYPE NATRIURETIC PEPTIDE 8,481(H) <125 PG/ML 08/31/2024 11:09 AM WAX ROOM SUPERVISOR [facility] Comment: AGE INDEPENDENT: <300 PG/ML HAS [...] FOR ACUTE CHF. 08/31/2024 10:3 5 AM WAX ROOM SUPERVISOR Jean Lindsay MD LABORATORY Final Result [facility] [address] [place] [address], [place] [phone] * (ABNORMAL) COMPREHENSIVE METABOLIC PANEL (08/31/2024 10:35 AM WAX ROOM SUPERVISOR) SODIUM S/P/B 135(L) 136 - 145 MMOL/L 08/31/2024 11:09 AM [facility] POTASSIUM S/P/B 5.0 3.5 - 5.1 MMOL/L 08/31/2024 11:09 AM [facility] CHLORIDE S/P/B 106 97 - 115 MMOL/L 08/31/2024 11:09 AM [facility] CO2 23.8 21.0 - 32.0 MMOL/L 08/31/2024 11:09 AM [facility] GLUCOSE 103 74 - 106 MG/DL 08/31/2024 11:09 AM [facility] BUN 77(H) 7 - 18 MG/DL 08/31/2024 11:09 AM [facility] CREATININE S/P/B 2.84(H) 0.70 - 1.30 MG/DL 08/31/2024 11:09 AM [facility] CALCIUM S/P/B 8.9 8.5 - 10.1 MG/DL 08/31/2024 11:09 AM [facility] BILIRUBIN TOTAL S/P/B 1.5(H) 0.2 - 1.0 MG/DL 08/31/2024 11:09 AM [facility] ALKALINE PHOSPHATASE S/P/B 125(H) 45 - 115 U/L 08/31/2024 11:09 AM [facility] AST 19 15 - 37 U/L 08/31/2024 11:09 AM [facility] ALT 22 16 - 61 U/L 08/31/2024 11:09 AM [facility] TOTAL PROTEIN S/P/B 7.5 6.4 - 8.2 G/DL 08/31/2024 11:09 AM [facility] ALBUMIN S/P/B 3.0(L) 3.4 - 5.0 G/DL 08/31/2024 11:09 AM [facility] ANION GAP 5.2 2.0 - 10.0 MMOL/L 08/31/2024 11:09 AM [facility] OSMOLALITY (CALC) 303 MOSM/KG 025 11:09 AM [facility] Comment:REFERENCE RANGE NOT ESTABLISHED GFR ESTIMATE 23(L) >90 ML/MIN/1. 73 M2 08/31/2024 11:09 AM [facility] GFR NOTES GFR REFERENCE S: 08/31/2024 11:09 AM [facility] Comment: THE ESTIMATED GFR IS [...] ml/min/1.73 m2 G5,KIDNEY FAILURE: <15 ml/min/1.73 m2 08/31/2024 10:3 5 AM WAX ROOM SUPERVISOR us Sayeeda A Neftali MD LABORATORY Final Result [facility] [address] [place] [address], [phone] * (ABNORMAL) CBC W/DIFF AUTOMATED (08/31/2024 10:35 AM [employer] RO[employer] SUPERVISOR) [facility] WBC 11.40(H) 4.00 - 10.80 x10'3/uL 08/31/2024 10:53 AM [facility] RBC 3.74(L) 4.50 - 6.10 x10'6/uL 08/31/2024 10:53 AM [facility] HGB 10.9(L) 12.0 - 16.0 G/DL 08/31/2024 10:53 AM [facility] HCT 34.9(L) 37.0 - 52.0 % 08/31/2024 10:53 AM [facility] MCV 93.3 78.0 - 100.0 FL 08/31/2024 10:53 AM [facility] MCH 29.1 27.0 - 31.0 PG 08/31/2024 10:53 AM [facility] MCHC 31.2(L) 33.0 - 36.0 G/DL 08/31/2024 10:53 AM [facility] RDW 16.1(H) 11.5 - 14.5 % 08/31/2024 10:53 AM [facility] PLT 85(L) 150 - 350 x10'3/uL 08/31/2024 12:35 PM [facility] MPV 11.8(H) 7.4 - 10.4 FL 08/31/2024 12:35 PM [facility] DIFFERENTIAL TYPE AUTOMATED DIFFERENTIAL 08/31/2024 12:35 PM [facility] SEG NEUTROPHILS 81.5 % 12:35 PM [facility] LYMPHOCYTES 6.1 % 08/31/2024 12:35 PM [facility] MONOCYTES 11.1 % 08/31/2024 12:35 PM [facility] EOSINOPHILS 0.4 % 08/31/2024 12:35 PM [facility] BASOPHILS 0.2 % 08/31/2024 12:35 PM [facility] IMMATURE GRANS % 0.7 % 08/31/19 12:35 PM [facility] ABS. NEUTROPHILS 9.30(H) 1.60 - 8.30 x10'3/uL 08/31/2024 12:35 PM [facility] ABS. LYMPHOCYTES 0.69(L) 0.80 - 4.70 x10'3/uL 08/31/2024 12:35 PM [facility] ABS. MONOCYTES 1.26 0.00 - 1.50 x10'3/uL 08/31/2024 12:35 PM [facility] ABS. EOSINOPHILS 0.05 0.00 - 0.40 x10'3/uL 08/31/2024 12:35 PM [employer] SUPERVISOR [facility] ABS. BASOPHILS 0.02 0.00 - 0.20 x10'3/uL 08/31/2024 12:35 PM [facility] ABS. IMMATURE GRANULOCYTES 0.08(H) 0.00 - 0.03 x10'3/uL 08/31/2024 12:35 PM [facility] ABS. NUCLEATED RBC'S 0.00 0.00 - 0.01 x10'3/uL 08/31/2024 12:35 PM [facility] NRBC % 0.0 % 08/31/2024 12:35 PM [facility] 08/31/2024 10:3 5 AM [employer] SUPERVISOR us Jean Lindsay MD LABORATORY Final Result [facility] [address] [place] [address], [place] [phone] * CULTURE, BACTERIA BLOOD X2 (08/31/2024 10:34 AM [employer] RO[employer] SUPERVISOR) SPEC DESCRIPTION BLOOD 08/31/2024 9:58 AM [employer] SUPERVISOR [facility] SPECIAL REQUESTS NO SPECIAL REQUEST 08/31/2024 9:58 AM [employer] RO[employer] SUPERVISOR [facility] CULTURE RESULT NO GROWTH 5 DAYS 09/06/2024 12:01 AM [employer] RO[employer] SUPERVISOR [facility] BLOOD SPECIMEN OBTAINED FOR BLOOD CULTURE / Unknown 08/31/2024 10:34 AM [facility] ROOM SUPERVISOR 08/31/2024 10:35 AM WAX ROOM SUPERVISOR us Jean Lindsay MD MICROBIOLOGY - GENERAL ORDER BAKARI Final Result Performing Organization Address [facility] de Phone Number [facility] [address] [place] [address], [place] [phone] [id number] * XR CHEST PORTABLE (08/31/2024 10:16 AM WAX ROOM SUPERVISOR) Anatomical Region Laterality Modality Chest Radiographic Stephie ging 08/31/2024 3:04 PM WAX ROOM SUPERVISOR Impressions 08/31/2024 3:05 PM WAX ROOM SUPERVISOR IMPRESSION: 1) Borderline cardiomegaly with persistent pulmonary vascular congestion and interstitial edema very similar to previous study. Ordered By: JEAN LINDSAY Interpreted By: Rigoberto Calderon MD, 08/31/2024 3:04 PM Narrative 08/31/2024 3:05 PM WAX ROOM SUPERVISOR [facility] [address] [place], [place] [address] Examination: XR CHEST PORTABLE Exam time: 08/31/2024 10:12 AM Clinical history: Cough Comparison: 07/31/2024 Technique: AP chest Findings: Shallow inspiration with patient slightly rotated. Post midline sternotomy changes with prosthetic valve. Borderline cardiomegaly similar to previous study. Persistent pulmonary vascular congestion and interstitial edema very similar to the previous study. No new airspace consolidation. No pleural effusion. Procedure Note Rigoberto Calderon MD - 08/31/2024 [facility] [address] [place], [place] [address] Examination: XR CHEST PORTABLE Exam time: 08/31/2024 10:12 AM Clinical history: Cough Comparison: 07/31/2024 Technique: AP chest Findings: Shallow inspiration with patient slightly rotated. Post midlinesternotomy changes with prosthetic valve. Borderline cardiomegaly similarto previous study. Persistent pulmonary vascular congestion andinterstitial edema very similar to the previous study. No new airspaceconsolidation. No pleural effusion. IMPRESSION: 1) Borderline cardiomegaly with persistent pulmonary vascular congestionand interstitial edema very similar to previous study. Ordered By: JEAN LINDSAY Interpreted By: Rigoberto Calderon MD, 08/31/2024 3:04 PM Jean Lindsay MD GENERAL IMAGING Final Result * POCT glucose (08/31/2024 8:56 AM WAX ROOM SUPERVISOR) GLUCOSE POC 103 70 - 109 08/31/2024 9:06 AM WAX ROOM SUPERVISOR [facility] 08/31/2024 8:56 AM WAX ROOM SUPERVISOR us Jean Lindsay MD POCT ORDERABLES - DEVICE Fin al Result [facility] [address] [place] [address], [place] [phone] [id number] documented in this encounter Visit Diagnoses Diagnosis CHF exacerbation ([facility])- Primary Congestive heart failure, unspecified Varicose veins of bilateral lower extremities with other complications Chronic venous insufficiency Unspecified venous (peripheral) insufficiency Chronic atrial fibrillation ([facility]HCC) Atrial fibrillation BRITTANY (acute kidney injury) ([facility]) Acute kidney failure, unspecified Acute on chronic systolic congestive heart failure ([facility]) Acute on chronic systolic heart failure Longstanding persistent atrial fibrillation ([facility]) Pneumonia due to infectious organism, unspecified laterality, unspecified part of lung Fall Unspecified fall Chronic obstructive pulmonary disease, unspecified COPD type ([facility]) Acute hypercapnic respiratory failure ([facility]) Type 2 diabetes mellitus with other specified complication, unspecified whether snf insulin use ([facility]) S/P aortic valve replacement with bioprosthetic valve Heart valve replaced by other means Chronic anticoagulation Encounter for long-term (current) use of anticoagulants Arthritis Arthropathy, unspecified, site unspecified documented in this encounter Admitting Diagnoses Diagnosis CHF exacerbation ([facility]) Congestive heart failure, unspecified documented in this encounter Administered Medications Inactive Administered Medications - up to 3 most recent administrations Medication Order MAR Action Action Date Dose Rate Site acetaminophen (TYLENOL) tablet 650 mg 650 mg, Oral, Every 4 hours PRN, Mild pain (Scale 1 - 3), Starting on Wed09/06/24 at 1510, Until Taisha 09/21/24 at 1243, Maximum dose of acetaminophen is 4000 mg from all sources in 24 hours. acetylcysteine 10 % (MUCOMYST) inhalation solution 200 mg 200 mg, Nebulization, 2 times daily, First dose on Wed09/03/24 at 1100, Until Discontinued Given 09/09/2024 5:02 AM WAX ROOM SUPERVISOR 200 mg Given 09/08/2024 7:46 PM WAX ROOM SUPERVISOR 200 mg Given 09/08/2024 8:56 AM WAX ROOM SUPERVISOR 200 mg acetylcysteine 10 % (MUCOMYST) inhalation solution 200 mg 200 mg, Nebulization, 2 times daily, First dose (after last modification) on Wed09/09/24 at 2000, Until Discontinued Given 09/18/2024 8:52 PM WAX ROOM SUPERVISOR 200 mg Given 09/18/2024 9:35 AM WAX ROOM SUPERVISOR 200 mg Given 09/17/2024 8:34 PM WAX ROOM SUPERVISOR 200 mg acetylcysteine 10 % (MUCOMYST) inhalation solution 200 mg 200 mg, Nebulization, 2 times daily, First dose (after last modification) on Tu09/19/24 at 2000, Until Discontinued Given 09/21/2024 7:35 AM WAX ROOM SUPERVISOR 200 mg Given 09/20/2024 7:27 PM WAX ROOM SUPERVISOR 200 mg Given 09/20/2024 9:53 AM WAX ROOM SUPERVISOR 200 mg albumin human 25 % solution 12.5 g 12.5 g, Intravenous, Once, 1 dose, On Wed09/04/24 at 0945, CARPIO brand REQUIRES albumin tubing and filter. Other brands do NOT require tubing/filter. If container is glass, open line vent to administer. In emergencies, may administer as rapidly as necessary to improve clinical condition. After initial volume replacement: do not exceed 1 mL/min in patients with normal plasma volume. New Bag 09/04/2024 9:54 AM WAX ROOM SUPERVISOR 12.5 g albumin human 25 % solution 12.5 g 12.5 g, Intravenous, Once, 1 dose, On Wed09/05/24 at 0945, [employer]PIO brand REQUIRES albumin tubing and filter. Other brands do NOT require tubing/filter. If container is glass, open line vent to administer. In emergencies, may administer as rapidly as necessary to improve clinical condition. After initial volume replacement: do not exceed 1 mL/min in patients with normal plasma volume. New Bag 09/05/2024 11:00 AM WAX ROOM SUPERVISOR 12.5 g albuterol (PROVENTIL) (2.5 MG/3ML) 0.083% nebulizer solution 2.5 mg 2.5 mg, Nebulization, Every 2 hours PRN, Shortness of breath, Starting on 09/03/24 at 2136, Until Taisha 09/21/24 at 1243 Given 09/04/2024 7:24 AM WAX ROOM SUPERVISOR 2.5 mg albuterol (PROVENTIL) (5 MG/ML) 0.5% nebulizer solution 1 dose, Starting on Wed09/03/24 at 2117, Until Wed09/03/24 at 2138, Created by cabinet override Given 09/03/2024 9:38 PM WAX ROOM SUPERVISOR albuterol sulfate HFA 108 (90 Base) MCG/ACT inhaler 2 puff 2 puff, Inhalation, Every 4 hours PRN, Shortness of breath, Starting on Taisha 08/31/24 at 1152, Until 09/03/24 at 2136 Given 09/03/2024 12:14 PM CS T 2 puffs allopurinol (ZYLOPRIM) tablet 200 mg 200 mg, Tube, Daily, First dose (after last modification) on Wed09/04/24 at 0900, Until Discontinued Given 09/06/2024 9:36 AM WAX ROOM SUPERVISOR 200 mg Given 09/05/2024 8:33 AM WAX ROOM SUPERVISOR 200 mg Given 09/04/2024 9:49 AM WAX ROOM SUPERVISOR 200 mg allopurinol (ZYLOPRIM) tablet 200 mg 200 mg, Oral, Daily, First dose (after last modification) on Taisha 09/07/24 at 0900, Until Discontinued Given 09/21/2024 8:59 AM WAX ROOM SUPERVISOR 200 mg Given 09/20/2024 9:43 AM WAX ROOM SUPERVISOR 200 mg Given 09/19/2024 9:27 AM WAX ROOM SUPERVISOR 200 mg allopurinol (ZYLOPRIM) tablet 300 mg 300 mg, Oral, Daily, First dose on Wed09/01/24 at 0900, Until Discontinued Given 09/03/2024 8:28 AM WAX ROOM SUPERVISOR 300 mg Given 09/02/2024 9:36 AM WAX ROOM SUPERVISOR 300 mg Given 09/01/2024 10:17 AM WAX ROOM SUPERVISOR 300 mg aspirin chewable tablet 81 mg 81 mg, Oral, Daily, First dose on Taisha 08/31/24 at 1900, Until Discontinued Given 09/03/2024 8:28 AM WAX ROOM SUPERVISOR 81 mg Given 09/02/2024 9:36 AM WAX ROOM SUPERVISOR 81 mg Given 09/01/2024 10:16 AM WAX ROOM SUPERVISOR 81 mg aspirin chewable tablet 81 mg 81 mg, Tube, Daily, First dose (after last modification) on Wed09/04/24 at 0900, Until Discontinued Given 09/06/2024 9:36 AM WAX ROOM SUPERVISOR 81 mg Given 09/05/2024 8:33 AM WAX ROOM SUPERVISOR 81 mg Given 09/04/2024 9:48 AM WAX ROOM SUPERVISOR 81 mg aspirin chewable tablet 81 mg 81 mg, Oral, Daily, First dose (after last modification) on [facility] 09/07/24 at 0900, Until Discontinued Given 09/21/2024 8:59 AM WAX ROOM SUPERVISOR 81 mg Given 09/20/2024 9:43 AM WAX ROOM SUPERVISOR 81 mg Given 09/19/2024 9:27 AM WAX ROOM SUPERVISOR 81 mg atorvastatin (LIPITOR) tablet 80 mg 80 mg, Oral, Nightly at bedtime, First dose on [facility] 08/31/24 at 2100, Until Discontinued Given 09/02/2024 9:38 PM WAX ROOM SUPERVISOR 80 mg Given 09/01/2024 10:54 PM WAX ROOM SUPERVISOR 80 mg atorvastatin (LIPITOR) tablet 80 mg 80 mg, Tube, Nightly at bedtime, First dose (after last modification) on Wed09/04/24 at 2100, Until Discontinued Given 09/05/2024 8:37 PM WAX ROOM SUPERVISOR 80 mg Given 09/04/2024 8:24 PM WAX ROOM SUPERVISOR 80 mg atorvastatin (LIPITOR) tablet 80 mg 80 mg, Oral, Nightly at bedtime, First dose (after last modification) on Wed09/06/24 at 2100, Until Discontinued Given 09/20/2024 9:03 PM WAX ROOM SUPERVISOR 80 mg Given 09/19/2024 9:08 PM WAX ROOM SUPERVISOR 80 mg Given 09/18/2024 9:11 PM WAX ROOM SUPERVISOR 80 mg budesonide (PULMICORT) nebulizer solution 0.25 mg 0.25 mg, Nebulization, 2 times daily, 6 doses, First dose on Wed09/04/24 at 0700, Last dose on Wed09/06/24 at 1900, Shake Gently Given 09/06/2024 9:17 PM WAX ROOM SUPERVISOR 0.25 mg Given 09/06/2024 8:09 AM WAX ROOM SUPERVISOR 0.25 mg Given 09/05/2024 8:33 PM WAX ROOM SUPERVISOR 0.25 mg bumetanide (BUMEX) injection 2 mg 2 mg, Intravenous, 2 times daily, 2 doses, First dose on 09/10/24 at 1015, Last dose on Wed09/10/24 at 1700, Administer slowly over 1-2 minutes Given 09/10/2024 4:51 PM WAX ROOM SUPERVISOR 2 mg Given 09/10/2024 11:05 AM WAX ROOM SUPERVISOR 2 mg bumetanide (BUMEX) tablet 2 mg 2 mg, Oral, Daily, First dose on Wed09/13/24 at 1715, Until Discontinued Given 09/21/2024 9:00 AM WAX ROOM SUPERVISOR 2 mg Given 09/20/2024 9:43 AM WAX ROOM SUPERVISOR 2 mg Given 09/19/2024 9:27 AM WAX ROOM SUPERVISOR 2 mg calcium gluconate 2 gram in NS 100 mL IVPB 2 g, Intravenous, at 100 mL/hr, Once, 1 dose, On Wed09/05/24 at 1300 New Bag 09/05/2024 12:59 PM WAX ROOM SUPERVISOR 2 g 100 mL/hr carvedilol (COREG) tablet 3.125 mg 3.125 mg, Oral, 2 times daily, First dose on Wed08/31/24 at 2100, Until Discontinued, Take with meal or snack Given 09/03/2024 8:28 AM WAX ROOM SUPERVISOR 3.125 mg Given 09/02/2024 9:38 PM WAX ROOM SUPERVISOR 3.125 mg Given 09/02/2024 9:36 AM WAX ROOM SUPERVISOR 3.125 mg chlorothiazide (DIURIL) injection 500 mg 500 mg, Intravenous, Once, 1 dose, On 09/03/24 at 2130, Reconstitute 500 mg vial with 18 mL sterile water to make 28 mg/mL Given 09/03/2024 9:27 PM WAX ROOM SUPERVISOR 50 0 mg chlorothiazide (DIURIL) injection 500 mg 500 mg, Intravenous, 2 times daily, 2 doses, First dose on Wed09/10/24 at 1015, Last dose on Wed09/10/24 at 2100, Reconstitute 500 mg vial with 18 mL sterile water to make 28 mg/mL Given 09/10/2024 9:59 PM WAX ROOM SUPERVISOR 500 mg Given 09/10/2024 11:05 AM WAX ROOM SUPERVISOR 500 mg chlorthalidone (HYGROTEN) tablet 25 mg 25 mg, Oral, Daily, First dose on Wed09/03/24 at 1230, Until Discontinued Given 09/03/2024 12:41 PM WAX ROOM SUPERVISOR 25 mg clotrimazole-betamethasone (LOTRISONE) cream Topical, Every 12 hours, First dose on Taisha 08/31/24 at 2100, Until Discontinued Given 09/20/2024 9:01 PM WAX ROOM SUPERVISOR Given 09/20/2024 9:54 AM WAX ROOM SUPERVISOR Given 09/19/2024 9:08 PM WAX ROOM SUPERVISOR dexmedetomidine (PRECEDEX) 400 mcg in NS 100 mL IV infusion 0.1-1.4 mcg/kg/hr ? 95.3 kg (2.3825-33.355 mL/hr, rounded to 2.38-33.36 mL/hr), Intravenous, Continuous, Starting on Wed09/04/24 at 0945, Until Wed09/07/24 at 1100, INITIAL RATE: 0.2 mcg/kg/hr TITRATE BY: 0.1 mcg/kg/hr every 10 minutes MAXIMUM RATE: 1.4 mcg/kg/hr WEAN BY: 0.1 mcg/kg/hr every 10 minutes NOTIFY PROVIDER if HR LESS than 50 BPM, SBP LESS than 90 mmHg, respiratory rate LESS than 10 breaths per min, *or* SpO2 LESS than 92% - DECREASE infusion rate by 50% SPECIAL INSTRUCTIONS: - RASS/CPOT score must be documented for each rate/dose change. Rate/Dose Change 09/06/2024 9:30 AM WAX ROOM SUPERVISOR 0.2 mcg/kg/hr 4.77 mL/hr Rate/Dose Change 09/06/2024 9:00 AM WAX ROOM SUPERVISOR 0.4 mcg/kg/hr 9.53 mL/hr New Bag 09/06/2024 8:48 AM WAX ROOM SUPERVISOR 0.6 mcg/kg/hr 14.3 mL/hr dextrose (GLUTOSE) 40 % oral gel 37.5-75 g 37.5-75 g (15-30 g of dextrose), Oral, As needed, Low blood sugar, Starting on Wed09/06/24 at 1603, Until Taisha 09/21/24 at 1243, If patient is verbally responsive and taking [...] As needed, Low Blood Sugar, Starting on Wed09/06/24 at 1603, Until Taisha 09/21/24 at 1243, If patient is verbally responsive and NPO [...] repeat until blood glucose reaches 70 mg/dL New Bag 09/06/2024 4:22 PM WAX ROOM SUPERVISOR 125 mLs 500 mL/hr dextrose 5 % bolus infusion 500 mL 500 mL, Intravenous, Administer over 30 Minutes, Once, 1 dose, On Wed09/06/24 at 2200 New Bag 09/06/2024 10:09 PM WAX ROOM SUPERVISOR 500 mLs 1000 mL/hr dextrose 5 % infusion at 75 mL/hr, Intravenous, Continuous, Starting on Wed09/06/24 at 2200, Until Wed09/08/24 at 1400 New Bag 09/07/2024 11:06 PM WAX ROOM SUPERVISOR 75 mL/hr Rate/Dose Change 09/07/2024 7:07 PM WAX ROOM SUPERVISOR 75 mL/h r Rate/Dose Change 09/07/2024 11:52 AM WAX ROOM SUPERVISOR 200 mL /hr dextrose 50 % solution 25 g 25 g, Intravenous, Once, 1 dose, On Wed09/15/24 at 0730, Administration rate 3 mL/min. Given 09/15/2024 7:03 AM WAX ROOM SUPERVISOR 25 g diphenhydrAMINE (BENADRYL) injection 25 mg 25 mg, Intravenous, Once, 1 dose, On Wed09/06/24 at 2315, For IV administration, give no faster than 25 mg/min. Given 09/06/2024 11:39 PM WAX ROOM SUPERVISOR 25 mg docusate (COLACE) 50 MG/5ML liquid 100 mg 100 mg, Tube, 2 times daily, First dose on Wed09/04/24 at 0945, Until Discontinued Given 09/06/2024 9:36 AM WAX ROOM SUPERVISOR 100 mg Given 09/05/2024 8:38 PM WAX ROOM SUPERVISOR 100 mg Given 09/05/2024 8:38 AM WAX ROOM SUPERVISOR 100 mg empagliflozin (JARDIANCE) tablet 25 mg 25 mg, Oral, Daily, First dose on Wed09/01/24 at 0900, Until Discontinued, Contact provider if the patient has a UTI, is NPO, or has an upcoming procedure within 3 days Given 09/03/2024 8:34 AM WAX ROOM SUPERVISOR 25 mg Given 09/02/2024 9:45 AM WAX ROOM SUPERVISOR 25 mg etomidate (AMIDATE) injection 30 mg 30 mg, Intravenous, Once, 1 dose, On Wed09/03/24 at 2115, Administer IV push over 30-60 seconds. Solution is highly irritating; avoid administration into small vessels; preadministration of lidocaine may be considered. Given 09/03/2024 8:57 PM WAX ROOM SUPERVISOR 30 mg famotidine (PEPCID) tablet 10 mg 10 mg, Tube, Every 24 hours scheduled (Daily), First dose (after last modification) on Wed09/06/24 at 0900, Until Discontinued Given 09/06/2024 9:36 AM WAX ROOM SUPERVISOR 10 mg famotidine (PEPCID) tablet 20 mg 20 mg, Tube, Every 12 hours scheduled (2 times per day), First dose (after last modification) on Wed09/03/24 at 2200, Until Discontinued Given 09/04/2024 9:48 AM WAX ROOM SUPERVISOR 20 mg famotidine (PEPCID) tablet 20 mg 20 mg, Tube, Every 24 hours scheduled (Daily), First dose (after last modification) on Wed09/05/24 at 0900, Until Discontinued Given 09/05/2024 8:33 AM WAX ROOM SUPERVISOR 20 mg famotidine (PF) (PEPCID) injection 20 mg 20 mg, Intravenous, Every 12 hours scheduled (2 times per day), First dose (after last modification) on Wed09/03/24 at 2200, Until Discontinued, Give if unable to take PO. IV Push over 2 minutes Given 09/03/2024 10:02 PM WAX ROOM SUPERVISOR 20 mg fentaNYL (SUBLIMAZE) 10 mcg/mL infusion 10-100 mcg/hr (1-10 mL/hr), Intravenous, Continuous, Starting on Wed09/03/24 at 2130, Until Wed09/06/24 at 1512, Initial Rate: 25 mcg/hr Titrate: ? -If not at goal; bolus patient with PRN IV push agent ordered; reassess RASS/CPOT score 10 minutes post bolus ? -If goal not achieved after 3 bolus doses; increase drip rate by 25mcg/hr ? -If goal THEN not achieved in 30 minutes after rate increase; bolus patient again and repeat these steps Max Rate: 100 mcg/hr Wean: Decrease rate by 25 mcg/hr every 10 minutes Special Instructions: Decrease infusion by 50% and notify provider if SBP less than 90 mmHg. If patient requires more than 3 boluses and drip rate change in one hour CALL PROVIDER. Once the RASS/CPOT score is within goal, contact provider to consider sedative agent (if not already ordered) if RASS/CPOT score is not at goal. RASS/CPOT score must be documented for each rate/dose change. *High Alert* Rate/Dose Change 09/04/2024 12:53 AM WAX ROOM SUPERVISOR 50 mcg/hr 5 mL/hr Rate/Dose Verify 09/04/2024 12:12 AM WAX ROOM SUPERVISOR 25 mcg/hr 2.5 mL /hr Rate/Dose Change 09/03/2024 9:54 PM WAX ROOM SUPERVISOR 25 mcg/hr 2.5 mL/ hr fentaNYL (SUBLIMAZE) injection 25 mcg 25 mcg, Intravenous, Every 10 min PRN, Other, CPOT not at goal, Starting on Wed09/03/24 at 2102, Until Wed09/21/24 at 1243, Give in combination with fentanyl infusion as needed. folic acid (FOLVITE) tablet 1 mg 1 mg, Oral, Daily, First dose on Wed09/01/24 at 0900, Until Discontinued Given 09/03/2024 8:28 AM WAX ROOM SUPERVISOR 1 mg Given 09/02/2024 9:36 AM WAX ROOM SUPERVISOR 1 mg Given 09/01/2024 10:17 AM WAX ROOM SUPERVISOR 1 mg folic acid (FOLVITE) tablet 1 mg 1 mg, Tube, Daily, First dose (after last modification) on Wed09/04/24 at 0900, Until Discontinued Given 09/06/2024 9:36 AM WAX ROOM SUPERVISOR 1 mg Given 09/05/2024 8:35 AM WAX ROOM SUPERVISOR 1 mg Given 09/04/2024 9:49 AM WAX ROOM SUPERVISOR 1 mg folic acid (FOLVITE) tablet 1 mg 1 mg, Oral, Daily, First dose (after last modification) on Taisha 09/07/24 at 0900, Until Discontinued Given 09/21/2024 8:59 AM WAX ROOM SUPERVISOR 1 mg Given 09/20/2024 9:43 AM WAX ROOM SUPERVISOR 1 mg Given 09/19/2024 9:27 AM WAX ROOM SUPERVISOR 1 mg furosemide (LASIX) 100 mg in sodium chloride 0.9 % 100 mL (1 mg/mL) infusion 10 mg/hr (10 mL/hr), Intravenous, Continuous, Starting on Wed09/03/24 at 1400, Until Wed09/04/24 at 0920 New Bag 09/04/2024 5:12 AM WAX ROOM SUPERVISOR 10 mg/hr 10 mL/hr Rate/Dose Verify 09/04/2024 12:12 AM WAX ROOM SUPERVISOR 10 mg/hr 10 mL/ hr Rate/Dose Change 09/03/2024 9:26 PM WAX ROOM SUPERVISOR 10 mg/hr 10 mL/h r furosemide (LASIX) injection 40 mg 40 mg, Intravenous, Once, 1 dose, On Vista 09/03/24 at 1400, Administer IV push 20-40mg/min. Given 09/03/2024 1:52 PM WAX ROOM SUPERVISOR 40 mg furosemide (LASIX) injection 80 mg 80 mg, Intravenous, Daily, First dose on Taisha 08/31/24 at 1300, Until Discontinued, Administer IV push 20-40mg/min. Given 09/01/2024 10:16 AM WAX ROOM SUPERVISOR 80 mg Given 08/31/2024 1:45 PM WAX ROOM SUPERVISOR 80 mg genteal tears (ARTIFICIAL TEARS) 0.1-0.2-0.3 % ophthalmic solution 1 drop 1 drop, Both Eyes, Every 4 hours, First dose on Wed09/03/24 at 2200, Until Discontinued Given 09/06/2024 1:38 PM WAX ROOM SUPERVISOR 1 drop Given 09/06/2024 9:37 AM WAX ROOM SUPERVISOR 1 drop Given 09/06/2024 12:25 AM WAX ROOM SUPERVISOR 1 drop glipiZIDE (GLUCOTROL) tablet 10 mg 10 mg, Oral, Every morning before breakfast, First dose on Wed09/17/24 at 1445, Until Discontinued Given 09/20/2024 7:01 AM WAX ROOM SUPERVISOR 10 mg Given 09/19/2024 6:19 AM WAX ROOM SUPERVISOR 10 mg Given 09/18/2024 9:45 AM WAX ROOM SUPERVISOR 10 mg glucagon injection 1 mg 1 mg, Intramuscular, Once as needed, Other, Low blood sugar, 1 dose, Starting on Wed09/06/24 at 1603, Until Taisha 09/21/24 at 1243, If patient is verbally UNresponsive and no IV access with blood glucose less than 70 mg/dL. Do NOT repeat administration. heparin 25,000 units in 250 mL 0.45% NaCl (100 units/mL) infusion 0-20 Units/kg/hr ? 95.3 kg (0-19.06 mL/hr, rounded to 0-19.1 mL/hr), Intravenous, Continuous, Starting on Wed09/04/24 at 0000, Until Wed09/04/24 at 0920, Medical Heparin Management for Anti-Xa Nomogram (Calculator). Use the Protocol button Yes to calculate initial infusion rate of 18 units/kg/hr, up to a MAX Initial rate of 2,000 units/hr (20 mL/hr) Lab instructions: - Stat CBC, PT, Anti-Xa prior to initiation of infusion. - Anti-Xa to be scheduled 6 hours after any of the following: start of infusion, bolus of heparin, rate change, holding of heparin drip, or from result time of first Anti-Xa within therapeutic range. - After 2 consecutive Anti-Xa's in therapeutic range change Anti-Xa to every AM. - Discontinue Anti-Xa's and CBCs when heparin infusion is stopped. *High Alert* Rate/Dose Verify 09/04/2024 7:05 AM WAX ROOM SUPERVISOR 18 Units/kg/hr 17.2 mL/hr New Bag 09/04/2024 12:57 AM WAX ROOM SUPERVISOR 18 Units/kg/hr 17.2 mL/ hr HYDROcodone-acetaminophen (NORCO) 5-325 MG tablet 1 tablet 1 tablet, Oral, Every 4 hours PRN, Moderate pain (Scale 4 - 7), Starting on Wed09/06/24 at 1511, Until Wed09/21/24 at 1243, Maximum dose of acetaminophen is 4000 mg from all sources in 24 hours. Given 09/19/2024 9:07 PM WAX ROOM SUPERVISOR 1 tablet Given 09/18/2024 9:12 PM WAX ROOM SUPERVISOR 1 tablet Given 09/17/2024 8:37 PM WAX ROOM SUPERVISOR 1 tablet hydrocortisone sodium succinate (Solu-CORTEF) 50 mg in sodium chloride bacteriostatic 0.9 % 1 mL injection 50 mg, Intravenous, Every 6 hours, First dose on Wed09/04/24 at 0945, Until Discontinued Given 09/05/2024 8:42 AM WAX ROOM SUPERVISOR 5 0 mg Given 09/05/2024 2:23 AM WAX ROOM SUPERVISOR 50 mg Given 09/04/2024 8:25 PM WAX ROOM SUPERVISOR 50 mg hydrocortisone sodium succinate (Solu-CORTEF) 50 mg in sodium chloride bacteriostatic 0.9 % 1 mL injection 50 mg, Intravenous, Every 12 hours scheduled (2 times per day), First dose (after last modification) on Wed09/05/24 at 2100, Until Discontinued Given 09/08/2024 10:27 AM WAX ROOM SUPERVISOR 50 mg Given 09/07/2024 10:02 PM WAX ROOM SUPERVISOR 50 mg Given 09/07/2024 8:45 AM WAX ROOM SUPERVISOR 50 mg hydrocortisone sodium succinate (Solu-CORTEF) injection 50 mg 50 mg, Intravenous, Every 12 hours scheduled (2 times per day), First dose (after last reorder) on Wed09/08/24 at 2100, Until Discontinued, IV administration: Administer over at least 30 seconds. For large doses (over 500 mg), administer over 10 minutes. IM administration: Avoid injection into deltoid muscle Given 09/08/2024 7:46 PM WAX ROOM SUPERVISOR 50 mg HYDROmorphone (DILAUDID) injection 0.2 mg 0.2 mg, Intravenous, Every 2 hours PRN, Severe pain (Scale 8 - 10), Starting on Taisha 08/31/24 at 1200, Until Taisha 09/21/24 at 1243, Administer slowly over at least 2-3 minutes. Given 09/20/2024 10:2 2 PM WAX ROOM SUPERVISOR 0.2 mg Given 09/19/2024 10:01 PM WAX ROOM SUPERVISOR 0.2 mg Given 09/18/2024 10:25 PM WAX ROOM SUPERVISOR 0.2 mg hydrOXYzine (ATARAX) tablet 50 mg 50 mg, Per NG Tube, 3 times daily PRN, itching, Starting on 09/03/24 at 2111, Until Taisha 09/21/24 at 1243, As needed insulin glargine (LANTUS) injection 10 Units 10 Units, Subcutaneous, Nightly at bedtime, First dose on Wed09/03/24 at 2130, Until Discontinued Given 09/03/2024 9:51 PM WAX ROOM SUPERVISOR 10 Units Left Arm insulin glargine (LANTUS) injection 15 Units 15 Units, Subcutaneous, Once, 1 dose, On Wed09/04/24 at 0230 Given 09/04/2024 2:18 AM WAX ROOM SUPERVISOR 15 Units Left Arm insulin glargine (LANTUS) injection 15 Units 15 Units, Subcutaneous, Once, 1 dose, On Wed09/04/24 at 0945 Given 09/04/2024 9:56 AM WAX ROOM SUPERVISOR 15 Units Right Lower Abdomen insulin glargine (LANTUS) injection 18 Units 18 Units, Subcutaneous, Nightly at bedtime, First dose (after last modification) on 09/18/24 at 2100, Until Discontinued Given 09/20/2024 10:28 PM WAX ROOM SUPERVISOR 18 Units Left Arm Given 09/19/2024 9:09 PM WAX ROOM SUPERVISOR 18 Units Ri ght Arm Given 09/18/2024 9:13 PM WAX ROOM SUPERVISOR 18 Units Le ft Arm insulin glargine (LANTUS) injection 20 Units 20 Units, Subcutaneous, Nightly at bedtime, First dose (after last modification) on 09/16/24 at 2100, Until Discontinued Given 09/16/2024 10:20 PM [employer]AX RO[employer] SUPERVISOR 20 Units Right Arm insulin glargine (LANTUS) injection 22 Units 22 Units, Subcutaneous, Nightly at bedtime, First dose (after last modification) on 09/17/24 at 2100, Until Discontinued Given 09/17/2024 9:29 PM [employer] RO[employer]PER[employer]OR 22 Units Right Arm insulin glargine (LANTUS) injection 24 Units 24 Units, Subcutaneous, Nightly at bedtime, First dose (after last modification) on Wed09/15/24 at 2100, Until Discontinued Given 09/15/2024 9:31 PM [employer] 24 Units Right Arm insulin glargine (LANTUS) injection 40 Units 40 Units, Subcutaneous, Nightly at bedtime, First dose (after last modification) on Wed09/04/24 at 2100, Until Discontinued Given 09/14/2024 9:10 PM [employer] RO[employer]OR 40 Units Left Lower Abdomen Given During Downtime 09/13/2024 9:58 PM [employer] RO[employer] SUPERVISOR 40 Units Left Arm Given 09/12/2024 10:01 PM [employer]PER[employer]OR 40 Units L eft Arm insulin lispro (HUMALOG/ADMELOG) injection 0-12 Units 0-12 Units, Subcutaneous, 4 times daily before meals and nightly, First dose on Wed09/03/24 at 2130, Until Discontinued, From sliding scale insulin subcut [...] administer 12 units and Call Physician) Given 09/04/2024 6:37 AM [employer] ROOM SUPERVISOR 7 Units Left Arm Given 09/03/2024 9:51 PM [employer] RO[employer] SUPER[employer]OR 7 Units Le ft Arm insulin lispro (HUMALOG/ADMELOG) injection 0-15 Units 0-15 Units, Subcutaneous, Every 4 hours, First dose (after last modification) on Wed09/04/24 at 0945, Until Discontinued, From sliding scale insulin subcut med order set - For TDI greater than or equal to 90 units Blood Glucose: (Less than 70: Initiate Hypoglycemia Standing Orders) (70 - 149, administer 0 units) (150 - 199, administer 4 units) (200 - 249, administer 8 units) (250 - 299, administer 10 units) (300 - 349, administer 12 units) (Greater than 349, administer 15 units and Call Physician) Given 09/08/2024 1:08 AM [employer] RO[employer] SUPER[employer]OR 4 Units Right Upper Abdomen Given 09/07/2024 9:48 PM [employer] ROOM SUPERVISOR 10 Units Le ft Arm Given 09/07/2024 5:51 PM [employer] RO[employer] SUPER[employer]OR 12 Units Le ft Upper Abdomen insulin lispro (HUMALOG/ADMELOG) injection 0-3 Units 0-3 Units, Subcutaneous, 3 times daily before meals, First dose (after last modification) on 09/16/24 at 0700, Until Discontinued, From sliding scale insulin subcut med order set - For TDI less than 30 units To be given in addition to scheduled lispro TID AC: Blood Glucose: (Less than 70, Initiate Hypoglycemia Standing Orders) (70 - 149, administer no additional lispro) (150 - 199, administer +1 unit) (200 - 250, administer +2 units) (251 - 300, administer +3 units) Please notify [facility] on-call for glucose <80 or >300. Thank you. Given 09/20/2024 4:18 PM [employer] RO[employer] SUPER[employer]OR 1 Units Right Arm Given 09/17/2024 4:45 PM [employer] RO[employer] SUPERVISOR 2 Units Ri ght Arm Given 09/16/2024 4:09 PM [employer] RO[employer] SUPER[employer]OR 1 Units Le ft Arm insulin lispro (HUMALOG/ADMELOG) injection 0-6 Units 0-6 Units, Subcutaneous, Every 6 hours, First dose (after last modification) on Taisha 08/31/24 at 1230, Until Discontinued, From sliding scale insulin subcut [...] administer 6 units and Call Physician) Given 09/01/2024 12:59 PM [employer] SUPER[employer]OR 2 Units Left Arm insulin lispro (HUMALOG/ADMELOG) injection 0-6 Units 0-6 Units, Subcutaneous, 4 times daily before meals and nightly, First dose (after last modification) on Wed09/01/24 at 1600, Until Discontinued, From sliding scale insulin subcut [...] administer 6 units and Call Physician) Given 09/03/2024 5:31 PM [employer] RO[employer]PER[employer]OR 4 Units Left Arm Given 09/03/2024 11:24 AM [employer] RO[employer] SUPERVISOR 2 Units R ight Arm Given 09/03/2024 7:55 AM [employer] SUPER[employer]OR 1 Units Le ft Arm insulin lispro (HUMALOG/ADMELOG) injection 0-6 Units 0-6 Units, Subcutaneous, 4 times daily before meals and nightly, First dose on Wed09/08/24 at 1130, Until Discontinued, From sliding scale insulin subcut med order set - For TDI less than 30 units Blood Glucose: (Less than 70, Initiate Hypoglycemia Standing Orders) (70 - 149, administer 0 units) (150 - 199, administer 1 units) (200 - 249, administer 2 units) (250 - 299, administer 3 units) (Greater than 300 notify [facility] software configuration analyst) Given 09/14/2024 9:12 PM [employer] SUPER[employer] 2 Units Right Lower Abdomen Given 09/14/2024 5:40 PM [employer] RO[employer] SUPER[employer]OR 3 Units Le ft Arm Given 09/14/2024 6:01 AM [employer] RO[employer] SUPER[employer]OR 2 Units Le ft Lower Abdomen insulin lispro (HUMALOG/ADMELOG) injection 0-6 Units 0-6 Units, Subcutaneous, 3 times daily before meals, First dose (after last modification) on Wed09/15/24 at 1615, Until Discontinued, From sliding scale insulin subcut med order set - For TDI less than 30 units Blood Glucose: (Less than 70, Initiate Hypoglycemia Standing Orders) (70 - 149, administer 0 units) (150 - 199, administer 1 units) (200 - 249, administer 2 units) (250 - 299, administer 3 units) (Greater than 300 notify [place] [facility] software configuration analyst) Given 09/15/2024 5:28 PM [employer] SUPER[employer]OR 3 Units Left Arm insulin lispro (HUMALOG/ADMELOG) injection 3 Units 3 Units, Subcutaneous, Once, 1 dose, On Wed09/16/24 at 0900, For sliding scale, activate Sliding Scale Insulin order set. Given 09/16/2024 8:52 AM [employer] SUPER[employer]OR 3 Units Right Arm insulin lispro (HUMALOG/ADMELOG) injection 4 Units 4 Units, Subcutaneous, Once, 1 dose, On Wed09/12/24 at 1800, In addition to 6units of SSI Give total of humalog 10 units Given 09/12/2024 5:53 PM [employer] 4 Units R ight Arm insulin lispro (HUMALOG/ADMELOG) injection 5 Units 5 Units, Subcutaneous, 3 times daily before meals, First dose (after last modification) on 09/16/24 at 1100, Until Discontinued, For sliding scale, activate Sliding Scale Insulin order set. Given 09/17/2024 8:26 AM [employer] RO[employer] SUPER[employer]OR 5 Units Right Arm Given 09/16/2024 4:09 PM [employer] RO[employer] SUPERVISOR 5 Units Le ft Arm Given 09/16/2024 11:56 AM [employer] SUPER[employer]OR 5 Units R ight Arm insulin lispro (HUMALOG/ADMELOG) injection 5 Units 5 Units, Subcutaneous, 3 times daily before meals, First dose (after last modification) on Taisha 09/21/24 at 0700, Until Discontinued, For sliding scale, activate Sliding Scale Insulin order set. Given 09/21/2024 6:37 AM [employer] SUPER[employer]OR 5 Units Left Arm insulin lispro (HUMALOG/ADMELOG) injection 6 Units 6 Units, Subcutaneous, Once, 1 dose, On Wed09/12/24 at 2200, For sliding scale, activate Sliding Scale Insulin order set. Given 09/12/2024 10:02 PM [employer] SUPER[employer]OR 6 Units Left Arm insulin lispro (HUMALOG/ADMELOG) injection 6 Units 6 Units, Subcutaneous, 3 times daily before meals, First dose on Wed09/15/24 at 1645, Until Discontinued, For sliding scale, activate Sliding Scale Insulin order set. Given 09/15/2024 5:18 PM [employer] SUPER[employer]OR 6 Units Right Arm insulin lispro (HUMALOG/ADMELOG) injection 6 Units 6 Units, Subcutaneous, 3 times daily before meals, First dose (after last modification) on Wed09/17/24 at 1130, Until Discontinued, For sliding scale, activate Sliding Scale Insulin order set. Given 09/20/2024 4:18 PM [employer] SUPER[employer]OR 6 Units Right Arm Given 09/20/2024 7:01 AM [employer] RO[employer] SUPERVISOR 6 Units Ri ght Arm Given 09/19/2024 4:19 PM [employer] SUPER[employer]OR 6 Units Ri ght Arm ipratropium-albuterol (DUONEB) 0.5-2.5 (3) MG/3ML nebulizer solution 3 mL 3 mL, Nebulization, Every 4 hours, First dose on Wed09/03/24 at 2130, Until Discontinued Given 09/09/2024 10:58 AM [employer] RO[employer]PER[employer] 3 mLs Given 09/09/2024 5:02 AM [employer] SUPER[employer]OR 3 mLs Given 09/09/2024 3:03 AM [employer] SUPER[employer] 3 mLs ipratropium-albuterol (DUONEB) 0.5-2.5 (3) MG/3ML nebulizer solution 3 mL 3 mL, Nebulization, Every 4 hours, First dose (after last modification) on Wed09/09/24 at 2000, Until Discontinued Given 09/19/2024 1:18 PM [employer] 3 mLs Given 09/19/2024 6:35 AM [employer] SUPER[employer]OR 3 mLs Given 09/19/2024 3:09 AM [employer] SUPER[employer] 3 mLs ipratropium-albuterol (DUONEB) 0.5-2.5 (3) MG/3ML nebulizer solution 3 mL 3 mL, Nebulization, Every 4 hours, First dose (after last modification) on Wed09/19/24 at 2000, Until Discontinued Given 09/21/2024 7:35 AM [employer] SUPER[employer] 3 mLs Given 09/20/2024 7:27 PM [employer] SUPERVISOR 3 mLs Given 09/20/2024 3:22 PM [employer] SUPER[employer]OR 3 mLs ipratropium-albuterol (DUONEB) 0.5-2.5 (3) MG/3ML nebulizer solution 1 dose, Starting on Wed09/03/24 at 2117, Until Wed09/03/24 at 2138, Created by cabinet mariamaide methylPREDNISolone sodium succinate (SOLU-Medrol) injection 40 mg 40 mg, Intravenous, Daily, 5 doses, First dose on Wed09/04/24 at 0230, Last dose on Wed09/08/24 at 0900, If ordered IV, administer into a vein over 3-15 minutes. Doses >= 2 mg/kg or 250mg should be given by infusion, unless the benefits of IV injection outweigh the risks (life-threatening shock) Given 09/04/2024 2:16 AM [employer]PER[employer] 40 mg metoprolol succinate ER (TOPROL-XL) 24 hr tablet 12.5 mg 12.5 mg, Oral, Daily, First dose on Wed09/12/24 at 1245, Until Discontinued, May be split in half along the tablet score line; do not chew or crush. Given 09/20/2024 9:42 AM [employer] SUPER[employer] 12.5 mg Given 09/19/2024 9:27 AM [employer] SUPER[employer] 12.5 mg Given 09/18/2024 9:35 AM [employer] SUPER[employer]OR 12.5 mg metoprolol succinate ER (TOPROL-XL) 24 hr tablet 25 mg 25 mg, Oral, Daily, First dose (after last modification) on Taisha 09/21/24 at 0900, Until Discontinued, May be split in half along the tablet score line; do not chew or crush. Given 09/21/2024 8:59 AM [employer] SUPER[employer] 25 mg metoprolol tartrate (LOPRESSOR) injection 5 mg 5 mg, Intravenous, Once, 1 dose, On 09/11/24 at 0600, Administer IV push 2.5 mg/min. Monitor HR and BP prior to administration, 15 minutes and 30 minutes post administration. If giving for acute arrhythmia, check rhythm prior to each dose. Do not administer if SBP<100 or HR<55. Given 09/11/2024 5:57 AM [employer] SUPER[employer]OR 5 mg mometasone-formoterol (DULERA) 100-5 MCG/ACT inhaler 2 puff 2 puff, Inhalation, 2 times daily, First dose on Taisha 08/31/24 at 1300, Until Discontinued, Following administration, rinse mouth with water after use (do not swallow) to reduce risk of oral candidiasis. Given 09/03/2024 5:01 PM [employer] SUPER[employer]OR 2 puffs Given 09/03/2024 7:56 AM [employer] RO[employer] SUPER[employer]OR 2 puffs Given 09/02/2024 6:09 PM [employer] RO[employer] SUPER[employer]OR 2 puffs norepinephrine (LEVOPHED) 8 mg/250mL NS infusion 0.5-60 mcg/min (0.9375-112.5 mL/hr, rounded to 0.94-112.5 mL/hr), Intravenous, Continuous, Starting on Wed09/03/24 at 2115, Until Wed09/05/24 at 0926, INITIAL RATE: 5 mcg/min TITRATE according to MAP: - If MAP is 60-65 ----- 2 mcg/min every 10 min - If MAP is 55-59 ----- 5 mcg/min every 5 min - If MAP is 50-54 ----- 5 mcg/min every 2 min - If MAP is LESS than 50 ------ 5 mcg/min every 1 min MAP Goal: MAP greater than or equal to 65 mmHg and SBP greater than or equal to 90 mmHg or HR greater than or equal to 60 bpm, MAXIMUM RATE: 60 mcg/min WEAN BY: 2 mcg/min every 2 minutes after a goal MAP > 65 for at least 3 consecutive readings NOTIFY PROVIDER if max rate of 60 mcg/min reached and/or SBP LESS than 90 mmHg or MAP LESS than 55 mmHg despite 3 upward titrations NOTIFY PROVIDER if SBP GREATER than 150 mmHg for 3 consecutive readings despite weaning rate. The order in which vasopressors are to be discontinued will be dictated by physician. Rate/Dose Change 09/05/2024 5:01 AM [employer] RO[employer] SUPERVISOR 1 mcg/min 1.88 mL/hr New Bag 09/05/2024 4:24 AM [employer] SUPER[employer]OR 3 mcg/min 5.63 mL/hr Rate/Dose Change 09/05/2024 12:20 AM [employer] SUPER[employer]OR 3 mcg/min 5.63 m L/hr nystatin (MYCOSTATIN) [id number] UNIT/ML suspension 5 mL 5 mL, Oral, 4 times daily, First dose on Wed09/02/24 at 1300, Until Discontinued, Shake Well. Swish & Swallow. Given 09/21/2024 8:59 AM [employer]PER[employer] 5 mLs Given 09/20/2024 9:03 PM [employer] SUPERVISOR 5 mLs Given 09/20/2024 3:22 PM [employer] RO[employer] SUPER[employer]OR 5 mLs nystatin (MYCOSTATIN) powder Topical, 2 times daily, First dose on Wed08/31/24 at 2100, Until Discontinued, Apply to groin, under abdominal fold Given 09/21/2024 8:59 AM [employer] RO[employer] SUPER[employer]OR Given 09/20/2024 9:02 PM [employer] RO[employer] SUPER[employer]OR Given 09/20/2024 9:54 AM [employer] SUPERVISOR pantoprazole EC (PROTONIX) tablet 40 mg 40 mg, Oral, Daily, First dose on Wed09/01/24 at 0900, Until Discontinued, Do not break, chew, or crush. Given 09/03/2024 8:28 AM [employer] SUPER[employer]OR 40 mg Given 09/02/2024 9:36 AM [employer] RO[employer] SUPERVISOR 40 mg Given 09/01/2024 10:17 AM [employer] SUPER[employer]OR 40 mg perflutren lipid microsphere (DEFINITY) injection 1 mL 1 mL, Intravenous, IMG once as needed, Contrast, 1 dose, Starting on Wed08/31/24 at 1327, Until Wed08/31/24 at 1328, Administer over 30-60 seconds. Follow with 10 mL saline flush. Given 08/31/2024 1:28 PM [employer] SUPER[employer]OR 1 mL piperacillin-tazobactam (ZOSYN) 3.375 g in sodium chloride 0.9 % 50 mL IVPB 3.375 g, Intravenous, Administer over 30 Minutes, Once, 1 dose, On Wed09/03/24 at 1230, Administer over 30 minutes. New Bag 09/03/2024 1:28 PM [employer] RO[employer] SUPERVISOR 3.375 g 100 mL/hr piperacillin-tazobactam (ZOSYN) 3.375 g in sodium chloride 0.9 % 50 mL IVPB 3.375 g, Intravenous, Administer over 240 Minutes, Every 8 hours, 21 doses, First dose on Wed09/03/24 at 2000, Last dose on Wed09/10/24 at 1430, Administer over 4 hours (extended infusion). New Bag 09/10/2024 3:10 PM W[employer] RO[employer] SUPERVISOR 3.375 g 12 .5 mL/hr New Bag 09/10/2024 5:32 AM W[employer] RO[employer] SUPERVISOR 3.375 g 12.5 mL/hr New Bag 09/09/2024 9:44 PM [employer] SUPERVISOR 3.375 g 12.5 mL/hr polyethylene glycol (GLYCOLAX) packet 17 g 17 g, Oral, Daily as needed, Constipation, Starting on Wed09/06/24 at 1511, Until Wed09/21/24 at 1243, If both senna and polyethylene glycol are ordered, use 1st; if no response by next dosing interval, go to next option. potassium chloride (KLOR-CON) packet 1 packet 1 packet (20 mEq), Tube, Once, 1 dose, On Wed09/05/24 at 0630, Dissolve powder in 240 mL water Given 09/05/2024 6:50 AM [employer] RO[employer] SUPERVISOR 1 packet potassium chloride (KLOR-CON) packet 2 packet 2 packet (40 mEq), Per G Tube, Once, 1 dose, On Wed09/04/24 at 0945, Dissolve powder in 240 mL water Given 09/04/2024 9:48 AM [employer] RO[employer] SUPERVISOR 2 packets potassium chloride (KLOR-CON) packet 2 packet 2 packet (40 mEq), Tube, Once, 1 dose, On Wed09/05/24 at 0630, Dissolve powder in 240 mL water Given 09/05/2024 6:16 AM W[employer] RO[employer] SUPERVISOR 2 packets potassium chloride (KLOR-CON) packet 2 packet 2 packet (40 mEq), Tube, Once, 1 dose, On Wed09/05/24 at 1300, Dissolve powder in 240 mL water Given 09/05/2024 12:59 PM W[employer] RO[employer] SUPERVISOR 2 packets potassium chloride 40 mEq in NS 500 mL IVPB 40 mEq, Intravenous, Administer over 240 Minutes, Once, 1 dose, On Wed09/05/24 at 0930, MAX rate in peripheral line of 10 mEq per hour. New Bag 09/05/2024 10:30 AM W[employer] SUPERVISOR 40 mEq 125 mL/hr potassium chloride 40 mEq in NS 500 mL IVPB 40 mEq, Intravenous, Administer over 240 Minutes, Once, 1 dose, On Wed09/06/24 at 1530, MAX rate in peripheral line of 10 mEq per hour. New Bag 09/06/2024 4:46 PM [employer] SUPERVISOR 40 mEq 125 mL/hr potassium chloride 40 mEq in NS 500 mL IVPB 40 mEq, Intravenous, Administer over 240 Minutes, Once, 1 dose, On Wed09/11/24 at 0600, MAX rate in peripheral line of 10 mEq per hour. New Bag 09/11/2024 5:57 AM [employer] SUPERVISOR 40 mEq 125 mL/hr potassium chloride CR (KLOR-CON M) tablet 40 mEq 40 mEq, Oral, Once, 1 dose, On Wed09/08/24 at 0845, Do not chew, crush, or suck on tablet. May break in half. May dissolve whole tablet in 120 mL of water and drink immediately. Given 09/08/2024 9:38 AM [employer] RO[employer] SUPERVISOR 40 mEq predniSONE (DELTASONE) tablet 40 mg 40 mg, Oral, Daily, 5 doses, First dose on Wed09/09/24 at 1215, Last dose on Wed09/13/24 at 0900 Given 09/13/2024 9:02 AM [employer] RO[employer] SUPERVISOR 40 mg Given 09/12/2024 9:10 AM W[employer] RO[employer] SUPERVISOR 40 mg Given 09/11/2024 9:16 AM W[employer] SUPER[employer]OR 40 mg pregabalin (LYRICA) capsule 150 mg 150 mg, Oral, 2 times daily, First dose on Taisha 08/31/24 at 1300, Until Discontinued Given 09/03/2024 8:28 AM [employer] RO[employer] SUPERVISOR 150 m g Given 09/02/2024 9:38 PM W[employer] RO[employer] SUPERVISOR 150 mg Given 09/02/2024 9:36 AM [employer] RO[employer] SUPERVISOR 150 mg pregabalin (LYRICA) capsule 150 mg 150 mg, Tube, 2 times daily, First dose (after last modification) on Wed09/04/24 at 0900, Until Discontinued Given 09/06/2024 9:36 AM W[employer] RO[employer] SUPERVISOR 150 mg Given 09/05/2024 8:38 PM W[employer] ROOM SUPERVISOR 150 mg Given 09/05/2024 8:36 AM [employer] RO[employer] SUPERVISOR 150 mg pregabalin (LYRICA) capsule 150 mg 150 mg, Oral, 2 times daily, First dose (after last modification) on Wed09/06/24 at 2100, Until Discontinued Given 09/21/2024 8:59 AM [employer] RO[employer] SUPERVISOR 150 mg Given 09/20/2024 9:15 PM W[employer] RO[employer] SUPERVISOR 150 mg Given 09/20/2024 9:42 AM W[employer] RO[employer] SUPERVISOR 150 mg propofol (DIPRIVAN) infusion 0-50 mcg/kg/min ? 95.3 kg (0-28.59 mL/hr), Intravenous, Continuous, Starting on Wed09/03/24 at 2115, Until Wed09/06/24 at 1512, INITIAL RATE: 5 mcg/kg/min TITRATE BY: 5 mcg/kg/min every 5 minutes MAXIMUM RATE: 50 mcg/kg/min WEAN BY: 5 mcg/kg/min every 5 minutes NOTIFY PROVIDER if SBP LESS than 90 mmHg, respiratory rate LESS than 10 breaths per min, or SpO2 LESS than 92% - DECREASE infusion rate by 50% SPECIAL INSTRUCTIONS: - RASS score must be documented for each rate/dose change. - Product expires 12 hours after vial is punctured, expiration time must be documented on bottle and tubing when initiated If container is glass, open line vent to administer. Rate/Dose Change 09/04/2024 4:01 PM [employer] RO[employer] SUPERVISOR 5 mcg/kg/min 2.86 mL/hr Rate/Dose Change 09/04/2024 3:25 PM [employer] RO[employer] SUPERVISOR 10 mcg/kg/min 5.72 mL/hr Rate/Dose Change 09/04/2024 2:39 PM [employer] SUPERVISOR 15 mcg/kg/min 8.58 mL/hr protein supplement (PROSOURCE) packet 1 packet 1 packet, Per OG tube, Daily, First dose on Wed09/05/24 at 1200, Until Discontinued, Note: ProSource NoCarb is ordered from [employer] ([employer] Code: [id number]). Mix 30 mL of ProSource NoCarb Liquid Protein in 30 mL of water, stir and infuse via syringe down feeding tube. Flush feeding tube with 30 mL of water before and after administration. Directions for administration can be found on the packet. *CHECK product MANUALLY- barcode scanning not required* Given 09/06/2024 9:00 AM W[employer] RO[employer] SUPERVISOR 1 packet Given 09/05/2024 12:59 PM W[employer] RO[employer] SUPERVISOR 1 packet rocuronium (ZEMURON) injection 95 mg 95 mg, Intravenous, Once, 1 dose, On Wed09/03/24 at 2115, Neuromuscular kim - patient must be on a ventilator. *High Alert* Given 09/03/2024 8:5 7 PM [employer] SUPERVISOR 95 mg senna 8.8 MG/5ML syrup 8.8 mg 8.8 mg (5 mL), Tube, 2 times daily, First dose on Wed09/04/24 at 0945, Until Discontinued Given 09/05/2024 8:38 PM [employer] RO[employer] SUPERVISOR 8.8 mg Given 09/04/2024 8:24 PM [employer] SUPERVISOR 8.8 mg Given 09/04/2024 9:48 AM [employer] RO[employer] SUPERVISOR 8.8 mg senna-docusate (SENOKOT-S) 8.6-50 MG tablet 1 tablet 1 tablet, Oral, 2 times daily, First dose on Wed09/06/24 at 2100, Until Discontinued Given 09/21/2024 8:59 A M [employer] SU[employer]VISOR 1 tablet Given 09/20/2024 9:42 AM [employer] RO[employer] SUPERVISOR 1 tablet Given 09/19/2024 9:27 AM W[employer] SUPERVISOR 1 tablet sertraline (ZOLOFT) tablet 50 mg 50 mg, Oral, Daily, First dose on Wed09/01/24 at 0900, Until Discontinued Given 09/03/2024 8:28 AM [employer] SUPERVISOR 50 mg Given 09/02/2024 9:36 AM W[employer] RO[employer] SUPERVISOR 50 mg Given 09/01/2024 10:17 AM W[employer] RO[employer] SUPERVISOR 50 mg sertraline (ZOLOFT) tablet 50 mg 50 mg, Tube, Daily, First dose (after last modification) on Wed09/04/24 at 0900, Until Discontinued Given 09/06/2024 9:36 AM [employer] RO[employer] SUPERVISOR 50 mg Given 09/05/2024 8:34 AM [employer] RO[employer] SUPERVISOR 50 mg Given 09/04/2024 9:48 AM [employer] SUPERVISOR 50 mg sertraline (ZOLOFT) tablet 50 mg 50 mg, Oral, Daily, First dose (after last modification) on Wed09/07/24 at 0900, Until Discontinued Given 09/21/2024 8:59 AM [employer] SUPERVISOR 50 mg Given 09/20/2024 9:43 AM W[employer] RO[employer] SUPERVISOR 50 mg Given 09/19/2024 9:27 AM W[employer] RO[employer] SUPERVISOR 50 mg TF peptide based high protein, low fat w/MCT (VITAL HP) liquid 55 mL/hr, Per OG tube, Continuous, Starting on Wed09/04/24 at 1215, Until Wed09/06/24 at 1304, TF Product: Vital High Protein, [employer] Code: [id number] Continuous TF: Infuse at goal rate of 55 mL/hr. Please see Rinse feeding tube with H2O communication for free water flush order. *CHECK product MANUALLY- barcode scanning not required* New Bag 09/06/2024 6:30 AM W[employer] RO[employer] SUPERVISOR 55 mL/hr 55 mL/hr Rate/Dose Verify 09/06/2024 4:00 AM [employer] RO[employer] SUPERVISOR 55 mL/hr 55 mL/h r Rate/Dose Verify 09/06/2024 12:00 AM [employer] SUPERVISOR 55 mL/hr 55 mL/ hr tiotropium (SPIRIVA RESPIMAT) 2.5 MCG/ACT inhaler 2 puff 2 puff, Inhalation, Daily, First dose on Wed08/31/24 at 1300, Until Discontinued, Common canister Given 09/03/2024 7:59 AM W[employer] RO[employer] SUPERVISOR 2 puffs Given 09/01/2024 8:31 AM W[employer] ROOM SUPERVISOR 2 puffs Given 08/31/2024 1:46 PM [employer] RO[employer] SUPERVISOR 2 puffs torsemide (DEMADEX) tablet 20 mg 20 mg, Oral, Daily, First dose on [facility] 09/02/24 at 1115, Until Discontinued Given 09/03/2024 8:28 AM [employer] RO[employer] SUPERVISOR 20 mg Given 09/02/2024 12:20 PM [employer] RO[employer] SUPERVISOR 20 mg traZODone (DESYREL) tablet 300 mg 300 mg, Oral, Nightly at bedtime, First dose on Wed08/31/24 at 2100, Until Discontinued Given 09/02/2024 9:38 PM W[employer] RO[employer] SUPERVISOR 30 0 mg Given 09/01/2024 10:54 PM [employer] SUPERVISOR 300 mg traZODone (DESYREL) tablet 300 mg 300 mg, Per NG Tube, Nightly at bedtime, First dose (after last modification) on Wed09/04/24 at 2100, Until Discontinued Given 09/05/2024 8:37 PM [employer] RO[employer] SUPERVISOR 300 mg Given 09/04/2024 8:26 PM [employer] SUPERVISOR 300 mg traZODone (DESYREL) tablet 300 mg 300 mg, Oral, Nightly at bedtime, First dose (after last modification) on Wed09/07/24 at 2100, Until Discontinued Given 09/20/2024 9:03 PM [employer] SUPERVISOR 300 mg Given 09/19/2024 9:08 PM [employer] RO[employer] SUPERVISOR 300 mg Given 09/18/2024 9:11 PM [employer] SUPERVISOR 300 mg vancomycin 1000 mg in NS 250 mL IVPB 1,000 mg, Intravenous, at 250 mL/hr, Every 24 hours, 6 doses, First dose on Wed09/04/24 at 1400, Last dose on Wed09/09/24 at 1400 New 09/04/2024 2:18 PM [employer] RO[employer] SUPERVISOR 1,000 mg 250 mL/hr vancomycin 1000 mg in NS 250 mL IVPB 1,000 mg, Intravenous, at 250 mL/hr, Once, 1 dose, On Wed09/05/24 at 1345 New 09/05/2024 3:57 PM [employer] SUPER[employer]OR 1,000 mg 250 mL/hr vancomycin 1750 mg in NS 500 mL IVPB 1,750 mg, Intravenous, at 250 mL/hr, Once, 1 dose, On Wed09/03/24 at 1300 09/03/2024 2:45 PM [employer] SUPERVISOR 1,750 mg 250 mL/hr vancomycin 750 mg in NS 250 mL IVPB 750 mg, Intravenous, Every 24 hours, 2 doses, First dose on Wed09/06/24 at 1530, Last dose on Wed09/07/24 at 1530 New 09/07/2024 5:14 PM [employer] SUPERVISOR 750 mg 09/06/2024 4:41 PM [employer] SUPERVISOR 750 mg vancomycin 750 mg in NS 250 mL IVPB 750 mg, Intravenous, Every 24 hours, 2 doses, First dose on Wed09/08/24 at 1700, Last dose on Wed09/09/24 at 1700 New 09/09/2024 5:14 PM W[employer] RO[employer] SUPERVISOR 750 mg New 09/08/2024 5:44 PM [employer] SUPERVISOR 750 mg warfarin (COUMADIN) pharmacy to dose placeholder Oral, See admin instructions, Starting on Wed09/01/24 at 1333, Until Wed09/21/24 at 1243, Warfarin Placeholder Only: Do NOT document administrations on this placeholder. (Use medication on OCT to document administrations or contact pharmacy if medication order not entered.) warfarin (COUMADIN) tablet 1 mg 1 mg, Oral, Once, 1 dose, On Wed09/08/24 at 1700, HAZARDOUS MEDICATION: wear single chemotherapy approved gloves. Do not open or split. If crushing, use approved closed-system crushing device for hazardous medications. Given 09/08/2024 5:22 PM W[employer] RO[employer] SUPERVISOR 1 mg warfarin (COUMADIN) tablet 2 mg 2 mg, Oral, Once, 1 dose, On 09/01/24 at 1700, HAZARDOUS MEDICATION: wear single chemotherapy approved gloves. Do not open or split. If crushing, use approved closed-system crushing device for hazardous medications. Given 09/01/2024 5:43 PM [employer] RO[employer] SUPERVISOR 2 mg warfarin (COUMADIN) tablet 2 mg 2 mg, Oral, Once, 1 dose, On 09/02/24 at 1700, HAZARDOUS MEDICATION: wear single chemotherapy approved gloves. Do not open or split. If crushing, use approved closed-system crushing device for hazardous medications. Given 09/02/2024 5:22 PM WAX ROOM SUPERVISOR 2 mg warfarin (COUMADIN) tablet 2 mg 2 mg, Tube, Once, 1 dose, On 09/05/24 at 1700, HAZARDOUS MEDICATION: wear single chemotherapy approved gloves. Do not open or split. If crushing, use approved closed-system crushing device for hazardous medications. Given 09/05/2024 5:40 PM WAX ROOM SUPERVISOR 2 mg warfarin (COUMADIN) tablet 2 mg 2 mg, Oral, Once, 1 dose, On Taisha 09/07/24 at 1700, HAZARDOUS MEDICATION: wear single chemotherapy approved gloves. Do not open or split. If crushing, use approved closed-system crushing device for hazardous medications. Given 09/07/2024 5:51 PM WAX ROOM SUPERVISOR 2 mg warfarin (COUMADIN) tablet 2 mg 2 mg, Oral, Once, 1 dose, On 09/09/24 at 1700, HAZARDOUS MEDICATION: wear single chemotherapy approved gloves. Do not open or split. If crushing, use approved closed-system crushing device for hazardous medications. Given 09/09/2024 5:00 PM WAX ROOM SUPERVISOR 2 mg warfarin (COUMADIN) tablet 2 mg 2 mg, Oral, Once, 1 dose, On 09/10/24 at 1700, HAZARDOUS MEDICATION: wear single chemotherapy approved gloves. Do not open or split. If crushing, use approved closed-system crushing device for hazardous medications. Given 09/10/2024 4:51 PM WAX ROOM SUPERVISOR 2 mg warfarin (COUMADIN) tablet 2 mg 2 mg, Oral, Once, 1 dose, On Wed09/11/24 at 1700, HAZARDOUS MEDICATION: wear single chemotherapy approved gloves. Do not open or split. If crushing, use approved closed-system crushing device for hazardous medications. Given 09/11/2024 4:40 PM WAX ROOM SUPERVISOR 2 mg warfarin (COUMADIN) tablet 2.5 mg 2.5 mg, Oral, Once, 1 dose, On Wed09/12/24 at 1700, HAZARDOUS MEDICATION: wear single chemotherapy approved gloves. Do not open or split. If crushing, use approved closed-system crushing device for hazardous medications. Given 09/12/2024 4:06 PM WAX ROOM SUPERVISOR 2.5 mg warfarin (COUMADIN) tablet 4 mg 4 mg, Oral, Once, 1 dose, On Wed09/13/24 at 1700, HAZARDOUS MEDICATION: wear single chemotherapy approved gloves. Do not open or split. If crushing, use approved closed-system crushing device for hazardous medications. Given 09/13/2024 4:27 PM WAX ROOM SUPERVISOR 4 mg warfarin (COUMADIN) tablet 4 mg 4 mg, Oral, Once, 1 dose, On Taisha 09/14/24 at 1700, HAZARDOUS MEDICATION: wear single chemotherapy approved gloves. Do not open or split. If crushing, use approved closed-system crushing device for hazardous medications. Given 09/14/2024 5:40 PM WAX ROOM SUPERVISOR 4 mg warfarin (COUMADIN) tablet 6 mg 6 mg, Oral, Once, 1 dose, On Wed09/15/24 at 1700, HAZARDOUS MEDICATION: wear single chemotherapy approved gloves. Do not open or split. If crushing, use approved closed-system crushing device for hazardous medications. Given 09/15/2024 5:19 PM WAX ROOM SUPERVISOR 6 mg warfarin (COUMADIN) tablet 6 mg 6 mg, Oral, Once, 1 dose, On 09/16/24 at 1700, HAZARDOUS MEDICATION: wear single chemotherapy approved gloves. Do not open or split. If crushing, use approved closed-system crushing device for hazardous medications. Given 09/16/2024 4:09 PM WAX ROOM SUPERVISOR 6 mg warfarin (COUMADIN) tablet 6 mg 6 mg, Oral, Once, 1 dose, On Wed09/17/24 at 1700, HAZARDOUS MEDICATION: wear single chemotherapy approved gloves. Do not open or split. If crushing, use approved closed-system crushing device for hazardous medications. Given 09/17/2024 4:58 PM WAX ROOM SUPERVISOR 6 mg warfarin (COUMADIN) tablet 7.5 mg 7.5 mg, Oral, Once, 1 dose, On Wed09/18/24 at 1700, HAZARDOUS MEDICATION: wear single chemotherapy approved gloves. Do not open or split. If crushing, use approved closed-system crushing device for hazardous medications. Given 09/18/2024 4:48 PM WAX ROOM SUPERVISOR 7.5 mg warfarin (COUMADIN) tablet 7.5 mg 7.5 mg, Oral, Once, 1 dose, On Wed09/19/24 at 1700, HAZARDOUS MEDICATION: wear single chemotherapy approved gloves. Do not open or split. If crushing, use approved closed-system crushing device for hazardous medications. Given 09/19/2024 4:20 PM WAX ROOM SUPERVISOR 7.5 mg warfarin (COUMADIN) tablet 7.5 mg 7.5 mg, Oral, Once, 1 dose, On Wed09/20/24 at 1700, HAZARDOUS MEDICATION: wear single chemotherapy approved gloves. Do not open or split. If crushing, use approved closed-system crushing device for hazardous medications. Given 09/20/2024 3:22 PM WAX ROOM SUPERVISOR 7.5 mg warfarin (COUMADIN) tablet 7.5 mg 7.5 mg, Oral, Once, 1 dose, On Taisha 09/21/24 at 1700, HAZARDOUS MEDICATION: wear single chemotherapy approved gloves. Do not open or split. If crushing, use approved closed-system crushing device for hazardous medications. documented in this encounter Active and Recently Administered Medications Times are shown in WAX ROOM SUPERVISOR. Scheduled Medication Order 09/19/2024 09/20/2024 09/21/2024 acetylcysteine 10 % (MUCOMYST) inhalation solution 200 mg 200 mg, Nebulization, 2 times daily, First dose (after last modification) on Wed09/19/24 at 2000, Until Discontinued 2106 (Not Given - Provider: Rose Manning RN - Reason: Patient/family declined) 0953 (Given - Provider: Marily Maharaj LPN)192 (Given - Provider: Yael Purdy, AUGUST) 0735 (Given - Provider: Yessica López, AUGUST) allopurinol (ZYLOPRIM) tablet 200 mg 200 mg, Oral, Daily, First dose (after last modification) on Wed09/07/24 at 0900, Until Discontinued 926 (Given - Provider: Louisa Gtz RN) 09 (Given - Provider: Marily Maharaj LPN) 0859 (Given - Provider: Kathleen Zhong LPN) aspirin chewable tablet 81 mg 81 mg, Oral, Daily, First dose (after last modification) on Wed09/07/24 at 0900, Until Discontinued 926 (Given - Provider: Louisa Gtz RN) 0943 (Given - Provider: Marily Maharaj LPN) 0859 (Given - Provider: Kathleen Zhong LPN) atorvastatin (LIPITOR) tablet 80 mg 80 mg, Oral, Nightly at bedtime, First dose (after last modification) on Wed09/06/24 at 2100, Until Discontinued 2107 (Given - Provider: Rose Manning RN) 2102 (Given - Provider: Joe Mcadams LPN) bumetanide (BUMEX) tablet 2 mg 2 mg, Oral, Daily, First dose on Wed09/13/24 at 1715, Until Discontinued 926 (Given - Provider: Louisa Gtz RN) 0943 (Given - Provider: Marily Maharaj LPN) 09 (Given - Provider: Kathleen Zhong LPN) clotrimazole-betamethas one (LOTRISONE) cream Topical, Every 12 hours, First dose on Wed08/31/24 at 2100, Until Discontinued 927 (Given - Provider: Louisa Gtz RN)2107 (Given - Provider: Rose Manning RN) 0954 (Given - Provider: Marily Maharaj LPN)2100 (Given - Provider: Joe Mcadams LPN) 924 (Not Given - Provider: Cielo Ness RN - Reason: Patient/family declined) folic acid (FOLVITE) tablet 1 mg 1 mg, Oral, Daily, First dose (after last modification) on Taisha 09/07/24 at 0900, Until Discontinued 926 (Given - Provider: Louisa Gtz RN) 0943 (Given - Provider: Marily Maharaj LPN) 0859 (Given - Provider: Kathleen Zhong LPN) glipiZIDE (GLUCOTROL) tablet 10 mg (CANCELED) 10 mg, Oral, Every morning before breakfast, First dose on 09/17/24 at 1445, Until Discontinued 618 (Given - Provider: Farrukh Lepe RN) 07 (Given - Provider: Rose Manning RN) insulin glargine (LANTUS) injection 18 Units 18 Units, Subcutaneous, Nightly at bedtime, First dose (after last modification) on 09/18/24 at 2100, Until Discontinued 2108 (Given - Provider: Rose Manning RN) 2227 (Given - Provider: Nikhil Haney RN) insulin lispro (HUMALOG/ADMELOG) injection 0-3 Units 0-3 Units, Subcutaneous, 3 times daily before meals, First dose (after last modification) on 09/16/24 at 0700, Until Discontinued, From sliding scale insulin subcut med order set - For TDI less than 30 units To be given in addition to scheduled lispro TID AC: Blood Glucose: (Less than 70, Initiate Hypoglycemia Standing Orders) (70 - 149, administer no additional lispro) (150 - 199, administer +1 unit) (200 - 250, administer +2 units) (251 - 300, administer +3 units) Please notify [facility] on-call for glucose <80 or >300. Thank you. 0600 (Not Given - Provider: Farrukh Lepe RN - Reason: Order parameters not met)1132 (Not Given - Provider: Louisa Gtz RN - Reason: Order parameters not met)1620 (Not Given - Provider: Louisa Gtz RN - Reason: Order parameters not met) 0642 (Not Given - Provider: Rose Manning RN - Reason: Order parameters not met - Comment: bg 86)1119 (Not Given - Provider: Marily Maharaj LPN - Reason: Order parameters not met)1618 (Given - Provider: Marily Maharaj LPN) 0633 (Not Given - Provider: Joe Mcadams LPN - Reason: Order parameters not met)1100 (Canceled Entry - Provider: Automatic Discharge Provider - Comment: Automatically canceled at discontinue of medication order) insulin lispro (HUMALOG/ADMELOG) injection 5 Units 5 Units, Subcutaneous, 3 times daily before meals, First dose (after last modification) on Taisha 09/21/24 at 0700, Until Discontinued, For sliding scale, activate Sliding Scale Insulin order set. 0637 (Given - Provider: Joe Mcadams LPN)1100 (Canceled Entry - Provider: Automatic Discharge Provider - Comment: Automatically canceled at discontinue of medication order) insulin lispro (HUMALOG/ADMELOG) injection 6 Units (CANCELED) 6 Units, Subcutaneous, 3 times daily before meals, First dose (after last modification) on 09/17/24 at 1130, Until Discontinued, For sliding scale, activate Sliding Scale Insulin order set. 0619 (Given - Provider: Farrukh Lepe RN)1318 (Given - Provider: Louisa Gtz, YUNI)1619 (Given - Provider: Louisa Gtz, YUNI) 0701 (Given - Provider: Rose Manning RN)1254 (Not Given - Provider: Cielo Ness RN - Reason: Contraindicated - Comment: Pt had 36 BG.)1618 (Given - Provider: Marily Maharaj LPN) ipratropium-albuterol (DUONEB) 0.5-2.5 (3) MG/3ML nebulizer solution 3 mL (CANCELED) 3 mL, Nebulization, Every 4 hours, First dose (after last modification) on 09/09/24 at 2000, Until Discontinued 0309 (Given - Provider: Tito Mai, DENI)0635 (Given - Provider: Farrukh Lepe RN)1318 (Given - Provider: Louisa Gtz, YUNI) ipratropium-albuterol (DUONEB) 0.5-2.5 (3) MG/3ML nebulizer solution 3 mL 3 mL, Nebulization, Every 4 hours, First dose (after last modification) on Wed09/19/24 at 2000, Until Discontinued 1999 (Given - Provider: Daniella Jerez, UNDERGROUND ROOF BOLTER) 0201 (Given - Provider: Rose Manning, YUNI)0527 (Given - Provider: Rose Manning RN)0947 (Given - Provider: Marily Maharaj LPN)1246 (Given - Provider: Marily Maharaj LPN)1522 (Given - Provider: Cielo Ness, YUNI)1927 (Given - Provider: Yael Purdy, MIGRATION SPECIALIST) 0007 (Not Given - Provider: Joe Mcadams LPN - Reason: Patient/family declined)0328 (Not Given - Provider: Joe Mcadams LPN - Reason: Patient/family declined)0735 (Given - Provider: Yessica López, MIGRATION SPECIALIST)1200 (Canceled Entry - Provider: Automatic Discharge Provider - Comment: Automatically canceled at discontinue of medication order) metoprolol succinate ER (TOPROL-XL) 24 hr tablet 12.5 mg (CANCELED) 12.5 mg, Oral, Daily, First dose on Wed09/12/24 at 1245, Until Discontinued, May be split in half along the tablet score line; do not chew or crush. 0927 (Given - Provider: Louisa Gtz RN) 0942 (Given - Provider: Marily Maharaj LPN) metoprolol succinate ER (TOPROL-XL) 24 hr tablet 25 mg 25 mg, Oral, Daily, First dose (after last modification) on Wed09/21/24 at 0900, Until Discontinued, May be split in half along the tablet score line; do not chew or crush. 0859 (Given - Provider: Kathleen Zhong LPN) nystatin (MYCOSTATIN) 233763 UNIT/ML suspension 5 mL 5 mL, Oral, 4 times daily, First dose on Wed09/02/24 at 1300, Until Discontinued, Shake Well. Swish & Swallow. 0928 (Not Given - Provider: Louisa Gtz RN - Reason: Patient/family declined)1319 (Not Given - Provider: Louisa Gtz RN - Reason: Patient/family declined)1620 (Not Given - Provider: Louisa Gtz RN - Reason: Patient/family declined)2107 (Given - Provider: Rose Manning RN) 0943 (Given - Provider: Marily Maharaj LPN)124 (Given - Provider: Marily Maharaj LPN)152 (Given - Provider: Cielo Ness RN)2102 (Given - Provider: Joe Mcadams LPN) 0859 (Given - Provider: Kathleen Zhong LPN) nystatin (MYCOSTATIN) powder Topical, 2 times daily, First dose on Wed08/31/24 at 2100, Until Discontinued, Apply to groin, under abdominal fold 28 (Given - Provider: Louisa Gtz RN)2107 (Given - Provider: Rose Manning RN) 0954 (Given - Provider: Marily Maharaj LPN)2101 (Given - Provider: Joe Mcadams LPN) 0859 (Given - Provider: Kathleen Zhong LPN) pregabalin (LYRICA) capsule 150 mg 150 mg, Oral, 2 times daily, First dose (after last modification) on Wed09/06/24 at 2100, Until Discontinued 926 (Given - Provider: Louisa Gtz RN)2107 (Given - Provider: Rose Manning RN) 0942 (Given - Provider: Marily Maharaj LPN)2114 (Given - Provider: Joe Mcadams LPN) 0859 (Given - Provider: Kathleen Zhong LPN) senna-docusate (SENOKOT-S) 8.6-50 MG tablet 1 tablet 1 tablet, Oral, 2 times daily, First dose on Wed09/06/24 at 2100, Until Discontinued 926 (Given - Provider: Louisa Gtz RN)2108 (Not Given - Provider: Rose Manning RN - Reason: Patient/family declined) 0942 (Given - Provider: Marily Maharaj LPN)2101 (Not Given - Provider: Joe Mcadams LPN - Reason: Patient/family declined) 0859 (Given - Provider: Kathleen Zhong LPN) sertraline (ZOLOFT) tablet 50 mg 50 mg, Oral, Daily, First dose (after last modification) on Wed09/07/24 at 0900, Until Discontinued 926 (Given - Provider: Louisa Gtz, YUNI) 09 (Given - Provider: Marily Maharaj LPN) 0859 (Given - Provider: Kathleen Zhong LPN) traZODone (DESYREL) tablet 300 mg 300 mg, Oral, Nightly at bedtime, First dose (after last modification) on Wed09/07/24 at 2100, Until Discontinued 2107 (Given - Provider: Rose Manning RN) 2102 (Given - Provider: Joe Mcadams LPN) warfarin (COUMADIN) pharmacy to dose placeholder(Linked Group 1) Oral, See admin instructions, Starting on Wed09/01/24 at 1333, Until Wed09/21/24 at 1243, Warfarin Placeholder Only: Do NOT document administrations on this placeholder. (Use medication on OCT to document administrations or contact pharmacy if medication order not entered.) warfarin (COUMADIN) tablet 7.5 mg (COMPLETED) 7.5 mg, Oral, Once, 1 dose, On Wed09/19/24 at 1700, HAZARDOUS MEDICATION: wear single chemotherapy approved gloves. Do not open or split. If crushing, use approved closed-system crushing device for hazardous medications. 1620 (Given - Provider: Louisa Gtz RN) warfarin (COUMADIN) tablet 7.5 mg (COMPLETED) 7.5 mg, Oral, Once, 1 dose, On Wed09/20/24 at 1700, HAZARDOUS MEDICATION: wear single chemotherapy approved gloves. Do not open or split. If crushing, use approved closed-system crushing device for hazardous medications. 1522 (Given - Provider: Cielo Ness RN) warfarin (COUMADIN) tablet 7.5 mg 7.5 mg, Oral, Once, 1 dose, On Wed09/21/24 at 1700, HAZARDOUS MEDICATION: wear single chemotherapy approved gloves. Do not open or split. If crushing, use approved closed-system crushing device for hazardous medications. PRN Medication Order 09/19/2024 09/20/2024 09/21/2024 acetaminophen (TYLENOL) tablet 650 mg 650 mg, Oral, Every 4 hours PRN, Mild pain (Scale 1 - 3), Starting on Wed09/06/24 at 1510, Until Taisha 09/21/24 at 1243, Maximum dose of acetaminophen is 4000 mg from all sources in 24 hours. albuterol (PROVENTIL) (2.5 MG/3ML) 0.083% nebulizer solution 2.5 mg 2.5 mg, Nebulization, Every 2 hours PRN, Shortness of breath, Starting on Wed09/03/24 at 2136, Until Wed09/21/24 at 1243 dextrose (GLUTOSE) 40 % oral gel 37.5-75 g 37.5-75 g (15-30 g of dextrose), Oral, As needed, Low blood sugar, Starting on Wed09/06/24 at 1603, Until Wed09/21/24 at 1243, If patient is verbally responsive and taking [...] As needed, Low Blood Sugar, Starting on Wed09/06/24 at 1603, Until Taisha 09/21/24 at 1243, If patient is verbally responsive and NPO [...] repeat until blood glucose reaches 70 mg/dL fentaNYL (SUBLIMAZE) injection 25 mcg(Linked Group 2) 25 mcg, Intravenous, Every 10 min PRN, Other, CPOT not at goal, Starting on Wed09/03/24 at 2102, Until Wed09/21/24 at 1243, Give in combination with fentanyl infusion as needed. glucagon injection 1 mg 1 mg, Intramuscular, Once as needed, Other, Low blood sugar, 1 dose, Starting on Wed09/06/24 at 1603, Until Taisha 09/21/24 at 1243, If patient is verbally UNresponsive and no IV access with blood glucose less than 70 mg/dL. Do NOT repeat administration. HYDROcodone-acetaminophen (NORCO) 5-325 MG tablet 1 tablet 1 tablet, Oral, Every 4 hours PRN, Moderate pain (Scale 4 - 7), Starting on Wed09/06/24 at 1511, Until Taisha 09/21/24 at 1243, Maximum dose of acetaminophen is 4000 mg from all sources in 24 hours. 2106 (Given - Provider: Rose Manning, YUNI) HYDROmorphone (DILAUDID) injection 0.2 mg 0.2 mg, Intravenous, Every 2 hours PRN, Severe pain (Scale 8 - 10), Starting on Wed08/31/24 at 1200, Until Taisha 09/21/24 at 1243, Administer slowly over at least 2-3 minutes. 2200 (Given - Provider: Rose Manning RN) 2221 (Given - Provider: Nikhil Haney RN) hydrOXYzine (ATARAX) tablet 50 mg 50 mg, Per NG Tube, 3 times daily PRN, itching, Starting on Wed09/03/24 at 2111, Until Taisha 09/21/24 at 1243, As needed naLOXone (NARCAN) injection 0.4 mg 0.4 mg, Intravenous, As needed, Opioid reversal, Starting on Wed08/31/24 at 1200, Until Taisha 09/21/24 at 1243, IM administration: Anterolateral aspect of thigh ondansetron (ZOFRAN) injection 4 mg 4 mg, Intravenous, Every 8 hours PRN, Nausea, Vomiting, Starting on Wed08/31/24 at 1200, Until Taisha 09/21/24 at 1243, IV push over 2-5 minutes. polyethylene glycol (GLYCOLAX) packet 17 g 17 g, Oral, Daily as needed, Constipation, Starting on Wed09/06/24 at 1511, Until Taisha 09/21/24 at 1243, If both senna and polyethylene glycol are ordered, use 1st; if no response by next dosing interval, go to next option. Linked Groups Order Group 1: Pharmacy to dose warfarin (COUMADIN) (CANCELED) Routine, Once, On Wed09/01/24 at 1334, For 1 occurrence, [facility]? 2-3 And warfarin (COUMADIN) pharmacy to dose placeholderJump to med Oral, See admin instructions, Starting on Wed09/01/24 at 1333, Until Taisha 09/21/24 at 1243, Warfarin Placeholder Only: Do NOT document administrations on this placeholder. (Use medication on OCT to document administrations or contact pharmacy if medication order not entered.) Group 2: fentaNYL (SUBLIMAZE) injection 50 mcg (CANCELED) 50 mcg, Intravenous, Once, 1 dose, On Wed09/03/24 at 2130, If intravenous (IV) route has been ordered, give over 1-2 minutes. And fentaNYL (SUBLIMAZE) 10 mcg/mL infusion (CANCELED) 10-100 mcg/hr (1-10 mL/hr), Intravenous, Continuous, Starting on Wed09/03/24 at 2130, Until 09/06/24 at 1512, Initial Rate: 25 mcg/hr Titrate: ? -If not at goal; bolus patient with PRN IV push agent ordered; reassess RASS/CPOT score 10 minutes post bolus ? -If goal not achieved after 3 bolus doses; increase drip rate by 25mcg/hr ? -If goal THEN not achieved in 30 minutes after rate increase; bolus patient again and repeat these steps Max Rate: 100 mcg/hr Wean: Decrease rate by 25 mcg/hr every 10 minutes Special Instructions: Decrease infusion by 50% and notify provider if SBP less than 90 mmHg. If patient requires more than 3 boluses and drip rate change in one hour CALL PROVIDER. Once the RASS/CPOT score is within goal, contact provider to consider sedative agent (if not already ordered) if RASS/CPOT score is not at goal. RASS/CPOT score must be documented for each rate/dose change. *High Alert* And fentaNYL (SUBLIMAZE) injection 25 mcgJump to med 25 mcg, Intravenous, Every 10 min PRN, Other, CPOT not at goal, Starting on Wed09/03/24 at 2102, Until Taisha 09/21/24 at 1243, Give in combination with fentanyl infusion as needed. documented in this encounter Additional Health Concerns Assessment Noted Time PHQ-9 Depression Total Score: 0 12/02/19 1:18 PM CDT documented as of this encounter Care Teams Auto Design Checker Relationship Specialty Start Date End Date Megan Infante MD [address] [place] [address] PCP - General FAMILY PRACTICE 04/06/16 Zaki Ortiz MD [address] [place] [address] Consulting Physician PULMONARY DISEASE 07/12/19 Concetta Acevedo MD [address] [place] [id number] Surgeon NEUROLOGICAL SURGERY 12/16/22 Jeff Grace MD [address] [place] [id number] Consulting Physician INTERNAL MEDICINE 02/11/23 Brit Gonzáles MD [address] [place], [place] [phone] Consulting Physician CARDIOVASCULAR DISEASE 12/29/23 documented as of this encounter
--- OUTSIDE RECORDS SUMMARY | 2024-09-21 12:50 | XMS_ITS | Encounter Summary ---
Author Organization [facility] Address [address] [place] [address]. [place] [address] [place] [address] Care Team Providers Care Telegraph Office Telephone Clerk Name Role Phone Piyush Pandey MD Unavailable Unavailabl e Megan Infante MD Primary Care Provider [phone] Sharmila Davis APRN [employer] Unavailable Linda Block MD Unavailable [phone] Jeff Grace MD Unavailable Zaki Ortiz MD Unavailable [phone] Concetta Acevedo MD Unavailable [phone] Jeff Grace MD Unavailable Brit Gonzáles MD Unavailable Encounter Details Date Type Department Care Team (Late st Contact Info) Description 03/29/2017 Abstract [facility] [address] [place] [address] Piyush Pandey MD Social History Tobacco Use Types Packs/Day Years Used Date Smoking Tobacco: Former Smokeless Tobacco: Former Chew Alcohol Use Standard Drinks/Week Comments Yes 0 (1 standard drink = 0.6 oz pur e alcohol) 6 per week Sex and Gender Information Value Date Recorded Sex Assigned at Male 09/07/2024 10:18 PM YOUTH MINISTER Legal Sex Male 10:01 PM CDT Gender Identity Male 09/07/2024 10:18 PM YOUTH MINISTER Sexual Orientation Straight 09/07/2024 10 :18 PM YOUTH MINISTER Occupation Industry Job Start Date Job End Date Not on file Not on file Not on file Not on file documented as of this encounter Plan of Treatment Upcoming Encounters Date Type Department Care Team (Late st Contact Info) Description 09/25/2024 2:[address] [facility] [address] [place] [address] Zayra Powell, INSULATING MACHINE OPERATOR [address] [place] [address] 10/16/2024 3:30 PM YOUTH MINISTER Office Visit [facility] [address] [place] [address] Brit Gonzáles MD [address] [place], [place] [phone] documented as of this encounter Visit Diagnoses Not on filedocumented in this encounter Additional Health Concerns Infection Onset Date Last Indicated Resolved Time COVID-19 Rule Out 03/02/2020 03/02/2020 03/03/2020 8:23 PM CDT COVID-19 Rule Out 07/03/2020 07/03/2020 07/04/2020 11:25 PM YOUTH MINISTER COVID-19 Rule Out 09/07/2020 09/07/2020 09/08/2020 5:52 PM YOUTH MINISTER COVID-19 Rule Out 10/05/2020 10/05/2020 10/06/2020 11:37 AM YOUTH MINISTER COVID-19 Rule Out 02/08/2021 02/08/2021 02/08/2021 9:06 PM CDT COVID-19 Rule Out 01/24/2022 01/24/2022 01/24/2022 6:41 PM CDT COVID-19 Rule Out 01/04/2023 01/04/2023 01/04/2023 10:12 AM CDT documented as of this encounter Care Teams Telegraph Office Telephone Clerk Relationship Specialty Start Date End Date Megan Infante MD [address] [place] [address] PCP - General FAMILY PRACTICE 04/06/16 Piyush Pandey MD [place] [employer] Worker CARDIOVASCULAR DISEASE 04/06/16 12/28/23 Sharmila Davis APRN, [employer]ER-C [address] [phone] NURSE PRACTITIONER 01/04/17 04/03/24 Linda Block MD [address] [phone] [place] [employer] Worker CLINICAL CARDIAC ELECTROPHYSIOLOGY 02/08/17 04/12/23 Jeff Grace MD [address] [phone] Consulting Physician INTERNAL MEDICINE 02/20/19 3 Zaki Ortiz MD [address] [place] [phone] Consulting Physician PULMONARY DISEASE 07/12/19 Concetta Acevedo MD [address] [place] [phone] Surgeon NEUROLOGICAL SURGERY 12/16/22 Jeff Grace MD [address] [place], [place] [address] Consulting Physician INTERNAL MEDICINE 02/11/23 Brit Gonzáles MD [address] [place] [address] Consulting Physician CARDIOVASCULAR DISEASE 12/29/23 documented as of this encounter
--- OUTSIDE RECORDS SUMMARY | 2024-09-21 12:50 | XMS_ITS | Clinical Summary ---
Author Organization Unknown Care Team Providers Care Yard Conductor Name Role Phone MASHA PINEDA Unavailable Unavailable [place] PHYSICAL THERAPIST, EMILE Unavailabl e Unavailable [employer] CHAIR CAR ATTENDANT, MONICA Unavail able Unavailable [facility] REGISTERED NURSE, [...] 08-23 00:00: 00 ATHSCL HEART DISEASE OF [place] CORONARY ARTERY W/O ANG PCTRS Active 08-23 [...] OF NICOTINE DEPENDENCE Active 08-23 00:00: 00 SACK REPAIRER (CURRENT) USE OF ASPIRIN Active 08-23 00:00: 00 CORRECTION (CURRENT) USE OF ORAL HYPOGLYCEMIC DRUGS Active 08-23 00:00: 00 LNG TRM (CRNT) USE INJECTABLE NON-INSULIN ANTIDIABETIC DRUGS Active 08-23 00:00: 00 SACK REPAIRER (CURRENT) USE OF ANTICOAGULAN TS Active 08-23 00:00: 00 SACK REPAIRER (CURRENT) USE OF INHALED STEROIDS Active 08-23 [...] 03-01 00:00: 00 08-17 23:59 :00 No [id number] GOUT 1 tablet ONCE DAILY 1 tablet ONCE DAILY (route: oral) Med Classific ation: Gout and Hyperuric emia Therapy aspirin 81 mg tablet,brandon yed release 03-01 00:00: 08-17 23:59 :00 No [id number] CAD 1 tablet ONCE DAILY 1 tablet ONCE DAILY (route: oral) Med Classific ation: Hematolog ical Agents atorvastati n 80 mg tablet 03-01 00:00: 00 08-17 23:59 :00 No [id number] HLD 1 tablet ONCE DAILY 1 tablet ONCE DAILY (route: oral) Med Classific ation: Cardiovas cular Therapy Agents carvedilol 3.125 mg tablet 03-01 00:00: 00 08-17 23:59 :00 No [id number] CAD 1 tablet TWICE DAILY 1 tablet TWICE DAILY (route: oral) Med Classific ation: Cardiovas cular Therapy Agents dicloxacill in 500 mg capsule 02-24 00:00: 00 03-05 23:59 :00 No [id number] CELLULITIS 1 capsule 4 TIMES DAILY 1 capsule 4 TIMES DAILY (route: oral) Med Classific ation: Anti-Infe ctive Agents docusate sodium 100 mg capsule 03-01 00:00: 08-17 23:59 :00 No [id number] CONSTIPATIO N 1 capsule TWICE DAILY 1 capsule TWICE DAILY (route: oral) Med Classific ation: Gastroint estinal Therapy Agents Entresto 24 mg-26 mg tablet 03-01 00:00: 08-17 23:59 :00 No [id number] CHF 1 tablet TWICE DAILY 1 tablet TWICE DAILY (route: oral) Med Classific ation: Cardiovas cular Therapy Agents ferrous sulfate 325 mg (65 mg iron) tablet 03-01 00:00: 00 08-17 23:59 :00 No [id number] ANEMIA 1 tablet ONCE DAILY 1 tablet ONCE DAILY (route: oral) Med Classific ation: Electroly te Balance-N utritiona l Products furosemide 40 mg tablet 03-01 00:00: 00 08-17 23:59 :00 No [id number] CHF 1 tablet TWICE DAILY 1 tablet TWICE DAILY (route: oral) Med Classific ation: Cardiovas cular Therapy Agents gabapentin 400 mg capsule 03-01 00:00: 08-17 23:59 :00 No [id number] NEUROPATHY 1 capsule TWICE DAILY 1 capsule TWICE DAILY (route: oral) Med Classific ation: Central Nervous System Agents glipizide 5 mg tablet 03-01 00:00: 00 08-17 23:59 :00 No [id number] DM 1 tablet ONCE DAILY 1 tablet ONCE DAILY (route: oral) Med Classific ation: Endocrine hydrocodone 7.5 mg-acetamin ophen 325 mg tablet 03-01 00:00: 00 08-17 23:59 :00 No [id number] PAIN 1 tablet 3 TIMES DAILY 1 tablet 3 TIMES DAILY (route: oral) Med Classific ation: Analgesic , Anti-infl ammatory or Antipyret ic hydroxyzine HCl 50 mg tablet 03-01 00:00: 00 08-17 23:59 :00 No [id number] ITCHING 2 tablet 3 TIMES DAILY 2 tablet 3 TIMES DAILY (route: oral) Med Classific ation: Central Nervous System Agents Jardiance 25 mg tablet 03-01 00:00: 00 08-17 23:59 :00 No [id number] DM 1 tablet ONCE DAILY 1 tablet ONCE DAILY (route: oral) Med Classific ation: Endocrine OXYGEN 03-01 00:00: 08-17 23:59 :00 No [id number] HYPOXIA 2-3 Liter NEEDED 2-3 Liter NEEDED (route: Oxygen) Med Classific ation: Medical Oxygen Ozempic 1 mg/dose (4 mg/3 mL) subcutaneou s pen injector 03-01 00:00: 00 08-17 23:59 :00 No [id number] DM 1 mg WEEKLY 1 mg WEEKLY (route: subcutaneo us) Med Classific ation: Endocrine pantoprazol e 40 mg tablet,brandon yed release 03-01 00:00: 00 08-17 23:59 :00 No [id number] GERD 1 tablet ONCE DAILY 1 tablet ONCE DAILY (route: oral) Med Classific ation: Gastroint estinal Therapy Agents potassium chloride ER 20 mEq tablet,exte nded release 03-01 00:00: 00 08-17 23:59 :00 No [id number] HYPOKALEMIA 1 tablet ONCE DAILY 1 tablet ONCE DAILY (route: oral) Med Classific ation: Electroly te Balance-N utritiona l Products ropinirole 2 mg tablet 03-01 00:00: 00 08-17 23:59 :00 No [id number] RLS 2 tablet AT BEDTIME 2 tablet AT BEDTIME (route: oral) Med Classific ation: Central Nervous System Agents sertraline 50 mg tablet 03-01 00:00: 00 08-17 23:59 :00 No [id number] DEPRESSION 1 tablet ONCE DAILY 1 tablet ONCE DAILY (route: oral) Med Classific ation: Central Nervous System Agents spironolact one 25 mg tablet 03-01 00:00: 00 08-17 23:59 :00 No [id number] CH 1 tablet ONCE DAILY 1 tablet ONCE DAILY (route: oral) Med Classific ation: Cardiovas cular Therapy Agents tamsulosin 0.4 mg capsule 03-01 00:00: 00 08-17 23:59 :00 No [id number] URINARY RETENTION 1 capsule ONCE DAILY 1 capsule ONCE DAILY (route: oral) Med Classific ation: Genitouri nary Therapy trazodone 150 mg tablet 03-01 00:00: 00 08-17 23:59 :00 No [id number] INSOMNIA 1 tablet AT BEDTIME 1 tablet AT BEDTIME (route: oral) Med Classific ation: Central Nervous System Agents Tresiba FlexTouch U-200 insulin 200 unit/mL (3 mL) subcutaneou s pen 03-01 00:00: 00 08-17 23:59 :00 No [id number] DM 30 unit ONCE DAILY 30 unit ONCE DAILY (route: subcutaneo us) Med Classific ation: Endocrine Ventolin HFA 90 mcg/actuati on aerosol inhaler 03-01 00:00: 00 08-17 23:59 :00 No [id number] WHEEZING/SH ORTNESS OF BREATH 1 puff EVERY 4 HOURS 1 puff EVERY 4 HOURS (route: inhalation ) Med Classific ation: Respirato ry Therapy Agents warfarin 1 mg tablet 03-01 00:00: 00 08-17 23:59 :00 No [id number] AFIB 1 tablet AT BEDTIME 1 tablet AT BEDTIME (route: oral) Med Classific ation: Hematolog ical Agents warfarin 5 mg tablet 03-01 00:00: 00 08-17 23:59 :00 No [id number] AFIB 1 tablet AT BEDTIME 1 tablet AT BEDTIME (route: oral) Med Classific ation: Hematolog ical Agents albuterol sulfate HFA 90 mcg/actuati on aerosol inhaler 2023-08 00:00: 00 Yes [id number] WHEEZING 2 puff EVERY 4 HOURS 2 puff EVERY 4 HOURS (route: inhalation ) Med Classific ation: Respirato ry Therapy Agents allopurinol 300 mg tablet 2023-08 00:00: 00 Yes [id number] GOUT 1 tablet DAILY 1 tablet DAILY (route: oral) Med Classific ation: Gout and Hyperuric emia Therapy aspirin 81 mg tablet,brandon yed release 2023-08 00:00: 00 Yes [id number] BLOOD CLOT PREVENTION 1 tablet DAILY 1 tablet DAILY (route: oral) Med Classific ation: Hematolog ical Agents carvedilol 3.125 mg tablet 2023-08 00:00: 00 Yes [id number] HTN 1 tablet 2 TIMES DAILY 1 tablet 2 TIMES DAILY (route: oral) Med Classific ation: Cardiovas cular Therapy Agents Colace 100 mg capsule 2023-08 00:00: 00 Yes [id number] CONSTIPATIO N 1 capsule DAILY 1 capsule DAILY (route: oral) Med Classific ation: Gastroint estinal Therapy Agents cyclobenzap rine 10 mg tablet 2023-08 00:00: 00 Yes [id number] BPH 1 tablet DAILY 1 tablet DAILY (route: oral) Med Classific ation: Locomotor System Entresto 24 mg-26 mg tablet 2023-08 00:00: 00 Yes [id number] HF 1 tablet 2 TIMES DAILY 1 tablet 2 TIMES DAILY (route: oral) Med Classific ation: Cardiovas cular Therapy Agents folic acid 1 mg tablet 2023-08 00:00: 00 Yes [id number] SUPPLEMENT 1 tablet DAILY 1 tablet DAILY (route: oral) Med Classific ation: Electroly te Balance-N utritiona l Products gabapentin 400 mg capsule 2023-08 00:00: 00 Yes [id number] NEUROPATHY 1 capsule 2 TIMES DAILY 1 capsule 2 TIMES DAILY (route: oral) Med Classific ation: Central Nervous System Agents glipizide 5 mg tablet 2023-08 00:00: 00 Yes [id number] DIABETES 1 tablet DAILY 1 tablet DAILY (route: oral) Med Classific ation: Endocrine hydrocodone 10 mg-acetamin ophen 325 mg tablet 2023-08 00:00: 00 Yes [id number] PAIN 1 tablet EVERY 6 HOURS 1 tablet EVERY 6 HOURS (route: oral) Med Classific ation: Analgesic , Anti-infl ammatory or Antipyret ic hydroxyzine HCl 50 mg tablet 2023-08 00:00: 00 Yes [id number] ITCHING 2 tablet 3 TIMES DAILY 2 tablet 3 TIMES DAILY (route: oral) Med Classific ation: Central Nervous System Agents Jardiance 25 mg tablet 2023-08 00:00: 00 Yes [id number] DIABETES 1 tablet DAILY 1 tablet DAILY (route: oral) Med Classific ation: Endocrine Lasix 80 mg tablet 2023-08 00:00: 00 Yes [id number] FLUID RETENTION 1 tablet DAILY 1 tablet DAILY (route: oral) Med Classific ation: Cardiovas cular Therapy Agents oxygen gas for inhalation 2023-08 00:00: 00 08-21 23:59 :00 No [id number] OXYGENATION 2 Liter O2 - PRN 2 Liter O2 - PRN (route: inhalation ) Med Classific ation: Medical Supplies and Durable Medical Equipment (DME) Ozempic 1 mg/dose (4 mg/3 mL) subcutaneou s pen injector 2023-08 00:00: 00 Yes [id number] DIABETES 1 mg WEEKLY 1 mg WEEKLY (route: subcutaneo us) Med Classific ation: Endocrine pregabalin 150 mg capsule 2023-08 00:00: 00 Yes [id number] MUSCLE PAIN 1 capsule 2 TIMES DAILY 1 capsule 2 TIMES DAILY (route: oral) Med Classific ation: Central Nervous System Agents sertraline 50 mg tablet 2023-08 00:00: 00 Yes [id number] DEPRESSION 1 tablet DAILY 1 tablet DAILY (route: oral) Med Classific ation: Central Nervous System Agents trazodone 150 mg tablet 2023-08 00:00: 00 Yes [id number] DEPRESSION 2 tablet DAILY 2 tablet DAILY (route: oral) Med Classific ation: Central Nervous System Agents Trelegy Ellipta 100 mcg-62.5 mcg-25 mcg powder for inhalation 2023-08 00:00: 00 Yes [id number] SHORTNESS OF BREATH 1 inhalat ion DAILY 1 inhalation DAILY (route: inhalation ) Med Classific ation: Respirato ry Therapy Agents warfarin 4 mg tablet 2023-08 00:00: 00 Yes [id number] BLOOD CLOT PREVENTION 1 tablet DAILY 1 tablet DAILY (route: oral) Med Classific ation: Hematolog ical Agents oxygen gas for inhalation 2023-08 00:00: 00 Yes [id number] OXYGENATION 2 Liter O2 - PRN 2 [...] 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 ] Future [facility] WILL ASSESS FOR COMPLICATIONS RELATED TO [...] WILL BE ESTABLISHED THAT MEETS ALL PATIENT'S MCC NEEDS AND COUNTER SIGNED BY PHYSICIAN. Goal [...] End Date/Time Encounter Type Admission Type Attending [facility] Care Department Encounter ID Discharge Date Discharge Status Discharge Condition Discharge Reason Percent Goals Met 2024-08-20 00:00:00 2024-10-18 00:00:00 Outpatient HILDA ANTUNEZ [facility] [id number] 33.33
--- NOTE | 2024-09-21 14:13 | PC.NURSE ---
Today at 1304 made RUBBER PROCESS HAND aware of confirmation of medications in system.
--- NOTE | 2024-09-21 14:14 | PC.NURSE ---
Today at 1354 made TRIMMER TAILER aware of BiPap settings as discussed with RT.
[2024-09-21 14:24] VITALS: O2SAT 96
[2024-09-21 16:30] VITALS: BP 112/68; PULSE 72; RESP 18; TEMP 36.4; O2SAT 92
[2024-09-21 16:42] LABS: Glucose Point of Care 151 mg/dl (65-105)
[2024-09-21] MEDS: BETAMETHASONE/CLOTRIMAZOLE CREAM 15 GM TUBE 1 APPLIC TOPICAL (18:10)
[2024-09-21] MEDS: TOLNAFTATE 1% POWDER 45 GM BTL 1 APPLIC TOPICAL (18:11)
[2024-09-21] MEDS: PREGABALIN (*CRX) 50 MG CAPSULE 150 MG PO (18:11)
[2024-09-21] MEDS: WARFARIN (*PBKC) 2.5 MG TABLET PO (18:11)
[2024-09-21] MEDS: WARFARIN (*PBKC) 5 MG TABLET PO (18:11)
[2024-09-21 21:03] LABS: Glucose Point of Care 200 mg/dl (65-105)
[2024-09-21] MEDS: ATORVASTATIN 40 MG TABLET 80 MG PO (21:04)
[2024-09-21] MEDS: HYDROcodone/acetaminophen (*CRX) 7.5-325 MG TABLET 1 TAB PO (21:04)
[2024-09-21] MEDS: traZODone HCL 50 MG TABLET 300 MG PO (21:04)
[2024-09-22] VITALS: BP 119/75; PULSE 83; RESP 16; TEMP 36.4; O2SAT 92
[2024-09-22 01:00] VITALS: PULSE 82; RESP 20; O2SAT 96
[2024-09-22 05:30] VITALS: RESP 20; O2SAT 94
[2024-09-22 06:11] LABS: INR 1.7; Prothrombin Time 18.3 Seconds (9.50-12.1)
[2024-09-22 07:45] VITALS: BP 123/76; PULSE 61; RESP 18; TEMP 36; O2SAT 94
[2024-09-22 08:33] LABS: Glucose Point of Care 203 mg/dl (65-105)
[2024-09-22 09:11] VITALS: PULSE 61
[2024-09-22] MEDS: allopurinoL 300 MG TABLET PO (09:11)
[2024-09-22] MEDS: PREGABALIN (*CRX) 50 MG CAPSULE 150 MG PO ×2 (09:11→17:41)
[2024-09-22] MEDS: SERTRALINE HCL 50 MG TABLET PO (09:11)
[2024-09-22] MEDS: METOPROLOL SUCCINATE EXT REL 25 MG TABCR PO (09:11)
[2024-09-22] MEDS: ASPIRIN 81 MG CHEWABLE TABLET PO (09:12)
[2024-09-22] MEDS: BUMETANIDE 1 MG TABLET 2 MG PO ×2 (09:12→17:41)
[2024-09-22] MEDS: EMPAGLIFLOZIN 25 MG TABLET PO (09:12)
[2024-09-22] MEDS: FLUTICASONE/UMECLIDIN/VILANTER 100-62.5-25 MCG ELLIPTA 1 PUFF INHALATION (09:12)
[2024-09-22] MEDS: FOLIC ACID 1 MG TABLET PO (09:12)
[2024-09-22] MEDS: PANTOPRAZOLE 40 MG TABLET PO (09:12)
[2024-09-22] MEDS: INSULIN HUMAN LISPRO (*BKC) 1,000 UNITS/10 ML VIAL SUB-Q ×2 (09:13→11:53)
[2024-09-22] MEDS: BETAMETHASONE/CLOTRIMAZOLE CREAM 15 GM TUBE 1 APPLIC TOPICAL ×2 (09:13→17:41)
[2024-09-22] MEDS: TOLNAFTATE 1% POWDER 45 GM BTL 1 APPLIC TOPICAL ×2 (11:15→17:42)
[2024-09-22 11:28] LABS: Glucose Point of Care 274 mg/dl (65-105)
--- NOTE | 2024-09-22 11:50 | P.HP_ITS ---
H&P: HPI History of Present Illness Date/Time: 09/22/24 11:50 Chief Complaint: Deconditioned Narrative: Patient was a 69-year-old male who had initially presented to the emergency department after he had had a fall a few days prior landing on the sidewalk and injuring his right side. who was initially admitted to [place] for pain control and difficulty breathing with possible underlying pneumonia. During patient's hospitalization his respiratory status declined and he was needing a tertiary hospital the which time he was transferred over to [facility] on 08/31/2024 for further evaluation and treatment of acute respiratory failure with hypoxia secondary to CHF in worsening anasarca. Patient reports past medical history of diabetes, hypertension, hyperlipidemia, heart valve replacement on Coumadin chronic oxygen of 2 L, and TIA. patient was found to be hypoxic on admission and was requiring supplemental oxygen. patient was then admitted back to [facility] in 2 this swing bed for continued rehabilitation due to his deconditioned state from extended hospitalization. Patient's medications reviewed with updates and resumed he is now requiring BiPAP at night and oxygen p.r.n. with activity. Review of Systems Review of Systems: All systems reviewed & are unremarkable except as noted in HPI and below PMFSH Past Medical History Medical History Obstructive sleep apnea Intolerant to CPAP Chronic anemia Chronic right-sided heart failure Moderate decreased right ventricular systolic function noted on echo 12/2022 Combined systolic and diastolic congestive heart failure Echocardiogram 12/2022: EF 37% grade 2 diastolic dysfunction, mild LVH Severe pulmonary hypertension Restless leg syndrome CVA (cerebral vascular accident) Evidence of old temporal CVA noted on imaging 12/22/2023 Bilateral carotid artery stenosis Peripheral artery disease Right rib fracture Diabetes mellitus Historically poorly controlled with last A1c 10/2023 of 10.2 CKD (chronic kidney disease) Stage IV with baseline creatinine 1.4-1.8 Depression COPD (chronic obstructive pulmonary disease) Diabetic neuropathy Gout Afib On chronic anticoagulation with Coumadin CAD (coronary artery disease) Nuclear medicine stress test 01/2022: Medium area of [id number] intensity fixed defect consistent with infarction in the inferior and basal inferior knox, EF is 51% Hyperlipidemia Surgical History Surgical History History of left hip replacement History of bilateral knee replacement History of aortic valve replacement with bioprosthetic valve (~2013) History of cardiac catheterization Family History Family History Mother Tuberculosis Social History Social History Social History: The patient is for with for 46 years. His a couple of years ago. He now lives with his daughter. He ambulates with a cane. 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 He briefly smoked when he was young for 1 or 2 years. He denies any significant alcohol use or illicit substance use. Code status: Full code Smoking packs per day: 1 Smoking cigarettes per day: 20.0 Years smoked: 2 Smoking pack-years: 2.00 Smoking status: Former smoker Tobacco type: cigarettes Smokeless tobacco user: chewing tobacco Second hand tobacco smoke exposure: Yes Smoking end date: 09/02/1967 Alcohol intake: never Drinks per week: 2 Substance use: never Substance use type: does not use Do You Feel Safe in your Home?: Yes Lack of Transportation: No Lack of Food: Never True Current Housing: I Have Housing Concerned About Future Housing: No Difficulty Paying Gas/Electric Bills: No Difficulty Paying for Meds: No Currently Unemployed: No Education: High School Diploma/GED Difficulty w/ Childcare or Family Care: No Gender identity (if verbalized by the patient): Male Sexual Orientation (if Verbalized by the Patient): Straight or Heterosexual Spiritual care concerns: No Meds Home Medications and Allergies Home Medications ?Medication ?Instructions ?Recorded ?Confirmed ?Type albuterol sulfate 90 mcg/actuation 2 puff inhalation Q4H PRN 07/03/20 09/21/24 History aerosol inhaler (Ventolin HFA) Shortness Of Breath allopurinol 300 mg tablet 300 mg PO DAILY 07/03/20 09/21/24 History atorvastatin 80 mg tablet 80 mg PO HS 07/03/20 09/21/24 History furosemide 40 mg tablet 80 mg PO DAILY 07/03/20 09/21/24 History glipizide 5 mg tablet, extended 5 mg PO DAILY 07/03/20 09/21/24 History release 24 hr pantoprazole 40 mg tablet,delayed 40 mg PO DAILY 07/03/20 09/21/24 History release sertraline 50 mg tablet 50 mg PO DAILY 07/03/20 09/21/24 History docusate sodium 100 mg capsule 100 mg PO DAILY PRN Constipation 02/01/22 09/21/24 History empagliflozin 25 mg tablet 25 mg PO DAILY 02/09/23 09/21/24 History (Jardiance) fluticasone fur. 100 mcg-umeclid 1 inh inhalation DAILY 02/09/23 09/21/24 History 62.5 mcg-vilant 25 mcg inhalat.powder (Trelegy Ellipta) hydrocodone 7.5 mg-acetaminophen 1 tablet PO Q8H PRN Pain, Moderate 02/09/23 09/21/24 History 325 mg tablet hydroxyzine HCl 50 mg tablet 50 mg PO TID PRN itch 02/09/23 09/21/24 History trazodone 100 mg tablet 300 mg PO HS insomnia 02/09/23 09/21/24 History carvedilol 6.25 mg tablet 3.125 mg PO Q12H 08/28/24 09/21/24 History folic acid 1 mg tablet 1 mg PO DAILY 08/28/24 09/21/24 History nystatin 100,000 unit/gram topical 1 applic topical BID 08/28/24 09/21/24 History powder (Nystop) pregabalin 150 mg capsule (Lyrica) 150 mg PO BID 08/28/24 09/21/24 History semaglutide 1 mg/dose (4 mg/3 mL) 1 mg subcut WEEKLY 08/28/24 09/21/24 History subcutaneous pen injector (Ozempic) semaglutide 1 mg/dose (4 mg/3 mL) 1 mg subcut WEEKLY 08/28/24 09/21/24 History subcutaneous pen injector (Ozempic) aspirin 81 mg chewable tablet 81 mg PO DAILY 09/21/24 09/21/24 History bumetanide 2 mg tablet 2 mg PO DAILY 09/21/24 09/21/24 History clotrimazole-betamethasone 1 1 applic topical BID 09/21/24 09/21/24 History %-0.05 % topical cream insulin glargine 100 unit/mL (3 18 unit subcut QPM 09/21/24 09/21/24 History mL) subcutaneous pen (Lantus Solostar U-100 Insulin) insulin lispro 100 unit/mL 6 unit subcut .with meals 09/21/24 09/21/24 History subcutaneous pen metoprolol succinate 25 mg 25 mg PO DAILY 09/21/24 09/21/24 History tablet,extended release 24 hr warfarin 7.5 mg tablet 7.5 mg PO DAILY@1700 09/21/24 09/21/24 History Allergies Allergy/AdvReac Type Severity Reaction Status Date / Time No Known Allergies Allergy Verified 08/28/24 11:50 Vital Signs Vital Signs - 24 hr 09/21/24 12:00 09/21/24 12:10 09/21/24 14:24 Temperature 97.6 F Pulse Rate 82 75 Respiratory Rate 20 18 Blood Pressure 127/81 Pulse Oximetry 96 98 96 Oxygen Delivery BiPAP Room Air Room Air Oxygen Flow Rate Fraction of Inspired Oxygen 09/21/24 16:30 09/22/24 00:00 09/22/24 01:00 Temperature 97.6 F 97.6 F Pulse Rate 72 83 82 Respiratory Rate 18 16 20 Blood Pressure 112/68 119/75 Pulse Oximetry 92 92 96 Oxygen Delivery Room Air Room Air BiPAP Oxygen Flow Rate 4 Fraction of Inspired Oxygen 36 09/22/24 07:45 09/22/24 09:11 Temperature 96.8 F L Pulse Rate 61 61 Respiratory Rate 18 Blood Pressure 123/76 Pulse Oximetry 94 Oxygen Delivery Room Air Oxygen Flow Rate Fraction of Inspired Oxygen Exam Narrative: * GENERAL: Alert and oriented x 3 up in chair No acute distress. * EYES: PERRLA. * HEENT: Moist mucous membranes. * LUNGS: Clear to auscultation bilaterally. No accessory muscle use. * CARDIOVASCULAR: Regular rate and rhythm. No murmur. No JVD. S1-S2 * ABDOMEN: Soft, non tenderness rounded. No palpable masses. * EXTREMITIES: No edema. Non-tender * SKIN: No rashes or lesions. Skin warm, dry. * NEUROLOGIC: No focal neurological deficits. CN II-XII grossly intact * PSYCHIATRIC: Appropriate mood and affect. Good judgement and insight. H&P: Results Labs Labs: Short CBC 08/29/24 Range/Units 05:27 WBC 6.4 (4.8-10.8) K/mm3 Hgb 10.1 L (12.4-15.3) g/dL Hct 32.3 L (37.0-46.0) % Plt Count 106 L (150-420) K/mm3 BMP 08/29/24 05:27 Sodium 137 Potassium 4.8 Chloride 103 Carbon Dioxide 28 BUN 55 H Creatinine 2.12 H Glucose 123 H Calcium 8.6 Cardiac Enzymes 08/28/24 Range/Units 14:56 Troponin I 44.4 (0.00-60.4) ng/L Liver Function 08/29/24 Range/Units 05:27 Total Bilirubin 0.9 (0.00-1.00) mg/dL AST 14 L (15-37) U/L ALT 19 (16-63) U/L Alkaline Phosphatase 127 H (46-116) U/L Albumin 2.9 L (3.4-5.0) g/dL Assessment and Plan Assessment and plan (1) Physical deconditioning: Code(s): R53.81 - Other malaise Status: Acute Assessment and Plan: * recent extended hospitalization * will continue with swing bed and physical and occupational therapy * up to chair with all meals (2) Fall: Onset Date: 02/01/22 Code(s): W19.XXXA - Unspecified fall, initial encounter Status: Acute Assessment and Plan: patient with multiple admissions for unsteady gait and falls * PT/OT (3) Right rib fracture: Code(s): S22.31XA - Fracture of one rib, right side, initial encounter for closed fracture Status: Acute Assessment and Plan: * HX of 7th and 8th right rib fracture * pain control * incentive spirometer (4) Congestive heart failure: Code(s): I50.9 - Heart failure, unspecified Status: Chronic Assessment and Plan: * Resumed Bumex, carvedilol, Jardiance * does not appear in exacerbation (5) Status post mechanical aortic valve replacement: Onset Date: ~2013 Code(s): Z95.2 - Presence of prosthetic heart valve Status: Acute Assessment and Plan: * Daily INR * keep at 2.0 3.0 * adjust Coumadin as needed 7.5 increased to 10mg (6) Diabetes mellitus: Code(s): E11.9 - Type 2 diabetes mellitus without complications Status: Acute Assessment and Plan: * Accu-Cheks a.cKayley HS * sliding scale insulin * hold oral diabetic medications * encourage lifestyle modifications and weight loss * Optimize Ravin inhibitors and statins. * Watch for hypoglycemia/hypoglycemic protocol ordered (7) Acute kidney injury superimposed on CKD: Code(s): N17.9 - Acute kidney failure, unspecified; N18.9 - Chronic kidney disease, unspecified Status: Acute Assessment and Plan: * Avoid nephrotoxic drugs. * Monitor antihypertensive drug therapy. * Avoid NSAIDs. * Routinely CMP monitoring GFR. (8) COPD (chronic obstructive pulmonary disease): Code(s): J44.9 - Chronic obstructive pulmonary disease, unspecified Status: Acute Assessment and Plan: * not in exacerbation * resume p.r.n. inhalers * oxygen p.r.n. reported patient is supposed to wear 2 L supplemental oxygen at home PRN with activity * will continue with patient's BiPAP at night Plan Code status: Full code per patient DVT prophylaxis: Coumadin Stress ulcer prophylaxis: NA PT/OT notes: SWING BED Disposition: patient was admitted to [facility] for continued rehabilitation after extended hospitalization plan is to return home with daughter when medically stable and safe for discharge Quality VTE Prophylaxis VTE prophylaxis: pharmacologic ordered -Patient's previous records reviewed on admission -ER notes reviewed in detail on admission -discussed all findings and current treatment plan with patient/Family/POA -Consultations reviewed for recommendations -Patient's disposition for safe discharge discussed with upper caser Dictation performed by [employer] direct speech recognition software, therefore tractor operator helper variants and typographical errors may occur. Hospitalist [facility] Advance Care Plan I have confirmed that the patient's Advanced Care Plan is present, code status is documented, or surrogate decision maker is listed in patient medical record.: Yes Medication Reconciliation I have utilized all available resources to obtain, update and review the patients current medications (includes all prescriptions, OTC, herbals, canna bis, and nutritional supplements).: Yes The patient is not eligible for med reconciliation; the patient is in a emergent medical situation where delaying treatment would jeopardize the patients health.: No
--- NOTE | 2024-09-22 14:47 | PC.NURSE ---
Informed TOWER LOADER OPERATOR of daughter Sera has concerns about her dad. She has not seen him since Wednesday, feels his abdominal girth, feet and fingers are much larger and puffy compared to then. Nurse informs she feels his stomach in harder to touch that before.
[2024-09-22 16:35] VITALS: BP 100/72; PULSE 68; RESP 18; TEMP 36.4; O2SAT 94
[2024-09-22 16:39] LABS: Glucose Point of Care 94 mg/dl (65-105)
[2024-09-22] MEDS: INSULIN GLARGINE (*BKC) 1,000 UNITS/10 ML VIAL 18 UNITS SUB-Q (17:42)
[2024-09-22] MEDS: WARFARIN (*PBKC) 5 MG TABLET 10 MG PO (17:42)
[2024-09-22 20:10] LABS: Glucose Point of Care 116 mg/dl (65-105)
[2024-09-22] MEDS: ATORVASTATIN 40 MG TABLET 80 MG PO (21:59)
[2024-09-22] MEDS: traZODone HCL 50 MG TABLET 300 MG PO (21:59)
[2024-09-22] MEDS: HYDROcodone/acetaminophen (*CRX) 7.5-325 MG TABLET 1 TAB PO (22:00)
[2024-09-23] VITALS: BP 111/66; PULSE 64; RESP 20; TEMP 36.4; O2SAT 95
[2024-09-23 05:30] VITALS: PULSE 64; O2SAT 95
[2024-09-23 08:00] VITALS: BP 113/66; PULSE 60; RESP 18; TEMP 36.1; O2SAT 94
[2024-09-23 08:04] LABS: Glucose Point of Care 98 mg/dl (65-105)
--- NOTE | 2024-09-23 08:12 | PM.EVENT ---
Event Note Event Note Event Note: Patient with increased swelling to BLE and BUE increased his oral Bumex to BID will continue for a few days then transition back to daily
[2024-09-23 09:00] VITALS: PULSE 60
[2024-09-23] MEDS: SERTRALINE HCL 50 MG TABLET PO (09:00)
[2024-09-23] MEDS: METOPROLOL SUCCINATE EXT REL 25 MG TABCR PO (09:00)
[2024-09-23] MEDS: PREGABALIN (*CRX) 50 MG CAPSULE 150 MG PO ×2 (09:01→17:10)
[2024-09-23] MEDS: FOLIC ACID 1 MG TABLET PO (09:01)
[2024-09-23] MEDS: PANTOPRAZOLE 40 MG TABLET PO (09:01)
[2024-09-23] MEDS: allopurinoL 300 MG TABLET PO (09:02)
[2024-09-23] MEDS: BUMETANIDE 1 MG TABLET 2 MG PO ×2 (09:02→17:11)
[2024-09-23] MEDS: ASPIRIN 81 MG CHEWABLE TABLET PO (09:03)
[2024-09-23] MEDS: EMPAGLIFLOZIN 25 MG TABLET PO (09:03)
[2024-09-23] MEDS: BETAMETHASONE/CLOTRIMAZOLE CREAM 15 GM TUBE 1 APPLIC TOPICAL ×2 (09:03→17:13)
[2024-09-23] MEDS: TOLNAFTATE 1% POWDER 45 GM BTL 1 APPLIC TOPICAL ×2 (09:04→17:13)
[2024-09-23] MEDS: FLUTICASONE/UMECLIDIN/VILANTER 100-62.5-25 MCG ELLIPTA 1 PUFF INHALATION (09:04)
[2024-09-23 11:35] LABS: Glucose Point of Care 145 mg/dl (65-105)
[2024-09-23 16:00] VITALS: BP 96/67; PULSE 64; RESP 16; TEMP 36.2; O2SAT 96
[2024-09-23 16:31] LABS: Glucose Point of Care 160 mg/dl (65-105)
[2024-09-23] MEDS: WARFARIN (*PBKC) 5 MG TABLET 10 MG PO (17:10)
[2024-09-23] MEDS: INSULIN GLARGINE (*BKC) 1,000 UNITS/10 ML VIAL 18 UNITS SUB-Q (18:13)
[2024-09-23 20:00] VITALS: PULSE 64; RESP 16; O2SAT 92
[2024-09-23] MEDS: ATORVASTATIN 40 MG TABLET 80 MG PO (21:36)
[2024-09-23] MEDS: hydrOXYzine HCL 25 MG TABLET 50 MG PO (21:36)
[2024-09-23] MEDS: HYDROcodone/acetaminophen (*CRX) 7.5-325 MG TABLET 1 TAB PO (21:36)
[2024-09-23] MEDS: traZODone HCL 50 MG TABLET 300 MG PO (21:36)
[2024-09-23 21:38] LABS: Glucose Point of Care 154 mg/dl (65-105)
[2024-09-24] VITALS (7 sets, daily range): BP systolic 96–116; BP diastolic 56–77; PULSE 55–64; RESP 16–20; TEMP 36.1–36.3; O2SAT 93–95
[2024-09-24 07:57] LABS: Glucose Point of Care 126 mg/dl (65-105)
[2024-09-24] MEDS: FLUTICASONE/UMECLIDIN/VILANTER 100-62.5-25 MCG ELLIPTA 1 PUFF INHALATION (08:46)
[2024-09-24] MEDS: SERTRALINE HCL 50 MG TABLET PO (08:47)
[2024-09-24] MEDS: TOLNAFTATE 1% POWDER 45 GM BTL 1 APPLIC TOPICAL ×2 (08:47→17:21)
[2024-09-24] MEDS: BETAMETHASONE/CLOTRIMAZOLE CREAM 15 GM TUBE 1 APPLIC TOPICAL ×2 (08:47→17:21)
[2024-09-24] MEDS: PREGABALIN (*CRX) 50 MG CAPSULE 150 MG PO ×2 (08:48→17:19)
[2024-09-24] MEDS: PANTOPRAZOLE 40 MG TABLET PO (08:48)
[2024-09-24] MEDS: ASPIRIN 81 MG CHEWABLE TABLET PO (08:48)
[2024-09-24] MEDS: METOPROLOL SUCCINATE EXT REL 25 MG TABCR PO (08:49)
[2024-09-24] MEDS: EMPAGLIFLOZIN 25 MG TABLET PO (08:49)
[2024-09-24] MEDS: allopurinoL 300 MG TABLET PO (08:50)
[2024-09-24] MEDS: FOLIC ACID 1 MG TABLET PO (08:50)
[2024-09-24] MEDS: BUMETANIDE 1 MG TABLET 2 MG PO ×2 (08:50→17:20)
[2024-09-24 11:39] LABS: Glucose Point of Care 187 mg/dl (65-105)
[2024-09-24 16:31] LABS: Glucose Point of Care 194 mg/dl (65-105)
[2024-09-24] MEDS: INSULIN GLARGINE (*BKC) 1,000 UNITS/10 ML VIAL 18 UNITS SUB-Q (17:20)
[2024-09-24] MEDS: WARFARIN (*PBKC) 5 MG TABLET 10 MG PO (17:39)
--- NOTE | 2024-09-24 17:41 | PC.NURSE ---
[employer] verified most recent INR prior to administration of Warfarin. Patient's last INR was 1.7 on 09/22/24. Patient scheduled to take 10mg daily. Charge nurse verified with ROLLER CHECKER that INR from 09/22/24 is recent enough to use and that patient will have INR checked weekly.
[2024-09-24 18:09] LABS: INR 2.7; Prothrombin Time 26.9 Seconds (9.50-12.1)
[2024-09-24] MEDS: hydrOXYzine HCL 25 MG TABLET 50 MG PO (21:33)
[2024-09-24] MEDS: traZODone HCL 50 MG TABLET 300 MG PO (21:33)
[2024-09-24] MEDS: HYDROcodone/acetaminophen (*CRX) 7.5-325 MG TABLET 1 TAB PO (21:34)
[2024-09-24] MEDS: ATORVASTATIN 40 MG TABLET 80 MG PO (21:34)
[2024-09-24 21:38] LABS: Glucose Point of Care 127 mg/dl (65-105)
[2024-09-25 05:30] VITALS: PULSE 62; RESP 20; O2SAT 93
[2024-09-25 05:55] LABS: INR 3.1; Prothrombin Time 30.5 Seconds (9.50-12.1)
[2024-09-25 07:50] VITALS: BP 122/65; PULSE 60; RESP 18; TEMP 36.1; O2SAT 92
[2024-09-25 08:18] LABS: Glucose Point of Care 82 mg/dl (65-105)
[2024-09-25] MEDS: BETAMETHASONE/CLOTRIMAZOLE CREAM 15 GM TUBE 1 APPLIC TOPICAL ×2 (09:31→18:11)
[2024-09-25] MEDS: PANTOPRAZOLE 40 MG TABLET PO (09:31)
[2024-09-25] MEDS: TOLNAFTATE 1% POWDER 45 GM BTL 1 APPLIC TOPICAL ×2 (09:31→18:10)
[2024-09-25] MEDS: PREGABALIN (*CRX) 50 MG CAPSULE 150 MG PO ×2 (09:31→18:10)
[2024-09-25] MEDS: BUMETANIDE 1 MG TABLET 2 MG PO ×2 (09:32→18:10)
[2024-09-25] MEDS: SERTRALINE HCL 50 MG TABLET PO (09:32)
[2024-09-25] MEDS: EMPAGLIFLOZIN 25 MG TABLET PO (09:32)
[2024-09-25] MEDS: ASPIRIN 81 MG CHEWABLE TABLET PO (09:32)
[2024-09-25 09:33] VITALS: PULSE 60
[2024-09-25] MEDS: FLUTICASONE/UMECLIDIN/VILANTER 100-62.5-25 MCG ELLIPTA 1 PUFF INHALATION (09:33)
[2024-09-25] MEDS: METOPROLOL SUCCINATE EXT REL 25 MG TABCR PO (09:33)
[2024-09-25] MEDS: FOLIC ACID 1 MG TABLET PO (09:33)
[2024-09-25] MEDS: allopurinoL 300 MG TABLET PO (09:33)
[2024-09-25 12:02] LABS: Glucose Point of Care 169 mg/dl (65-105)
--- NOTE | 2024-09-25 13:30 | PC.NURSE ---
Post void bladder scan performed x2, Scan amount noted to be 6 ml for both scans. Patient tolerated well.
[2024-09-25 16:40] VITALS: BP 112/62; PULSE 65; RESP 18; TEMP 36.5; O2SAT 92
[2024-09-25 16:47] LABS: Glucose Point of Care 197 mg/dl (65-105)
[2024-09-25] MEDS: WARFARIN (*PBKC) 2 MG TABLET 8 MG PO (18:10)
[2024-09-25] MEDS: INSULIN GLARGINE (*BKC) 1,000 UNITS/10 ML VIAL 18 UNITS SUB-Q (18:11)
[2024-09-25 20:25] VITALS: PULSE 65; RESP 18; O2SAT 92
[2024-09-25] MEDS: traZODone HCL 50 MG TABLET 300 MG PO (21:32)
[2024-09-25] MEDS: ATORVASTATIN 40 MG TABLET 80 MG PO (21:33)
[2024-09-25] MEDS: HYDROcodone/acetaminophen (*CRX) 7.5-325 MG TABLET 1 TAB PO (21:35)
[2024-09-25] MEDS: hydrOXYzine HCL 25 MG TABLET 50 MG PO (21:35)
[2024-09-25 22:12] LABS: Glucose Point of Care 195 mg/dl (65-105)
[2024-09-26] VITALS: BP 109/62; PULSE 62; RESP 20; TEMP 36.1; O2SAT 93
--- NOTE | 2024-09-26 00:30 | PC.NURSE ---
Pt assisted with getting into bed and positioned to comfort. Pt also assisted with bi-pap placement. Pt's SAO2 is 93% on room air and no signs of respiratory distress noted.
--- NOTE | 2024-09-26 03:05 | PC.NURSE ---
Pt asleep and 550 ml of clear, ayaka urine emptied from the urinal.
[2024-09-26 05:30] VITALS: PULSE 64; RESP 20; O2SAT 96
--- NOTE | 2024-09-26 06:13 | PC.NURSE ---
Pt sitting in the chair and watching TV; No c/o shortness of breath voiced.
[2024-09-26 07:06] LABS: Hematocrit 33.7 % (37.0-46.0); Hemoglobin 9.9 g/dL (12.4-15.3); Immature Platelet Fraction Pct 9.7 % (1.0-7.0); Mean Corpuscular HGB Conc 29.4 g/dL (32-36); Mean Corpuscular Hemoglobin 28.1 pg (27.0-31.0); Mean Corpuscular Volume 95.7 fL (78.0-102.0); Platelet Count Result 64 K/mm3 (150-420); Red Blood Count 3.52 M/mm3 (4.70-6.10); Red Cell Distribution Width 16.4 % (11.6-14.4); White Blood Count 6.4 K/mm3 (4.8-10.8)
[2024-09-26 07:23] LABS: Alanine Aminotransferase 66 U/L (16-63); Albumin Level 2.8 g/dL (3.4-5.0); Alkaline Phosphatase 180 U/L (46-116); Anion Gap 3 mmol/L (4-12); Aspartate Amino Transferase 45 U/L (15-37); Bilirubin,Total 0.6 mg/dL (0.00-1.00); Blood Urea Nitrogen 48 mg/dL (7-18); Calcium 8.4 mg/dL (8.5-10.1); Carbon Dioxide 38 mmol/L (21-32); Chloride 107 mmol/L (98-108); Estimated CRCL calculation 34 ml/min; Estimated Glomerular Filt Rate 32; Glucose 106 mg/dL (70-99); Osmolality Calculated 318 mOsm/kg (285-295); Potassium 3.6 mmol/L (3.5-5.1); Sodium 148 mmol/L (136-145); Total Protein 6.5 g/dL (6.4-8.2)
[2024-09-26 07:28] LABS: INR 4.7; Prothrombin Time 44.4 Seconds (9.50-12.1)
[2024-09-26 07:30] VITALS: BP 140/65; PULSE 55; RESP 16; TEMP 36.1; O2SAT 95
[2024-09-26 07:51] LABS: Glucose Point of Care 78 mg/dl (65-105)
--- NOTE | 2024-09-26 08:21 | PM.EVENT ---
Event Note Event Note Event Note: Patient INR 4.7 will hold Coumadin today then resume at 7.5mg 11/25 pending INR. NA 148 likely secondary to fluid restriction and reduce free water intake will increase fluid restriction to 1999. Patient at baseline weight 102KG same as admission on 09/21 will continue to monitor daily weights. Cr at Baseline 2.04 after increase of Bumex to 2mg BID. follow-up BMP in the AM.
[2024-09-26 08:35] VITALS: PULSE 55; RESP 16; O2SAT 95
[2024-09-26] MEDS: PREGABALIN (*CRX) 50 MG CAPSULE 150 MG PO ×2 (09:36→17:56)
[2024-09-26 09:37] VITALS: PULSE 55
[2024-09-26] MEDS: SERTRALINE HCL 50 MG TABLET PO (09:37)
[2024-09-26] MEDS: EMPAGLIFLOZIN 25 MG TABLET PO (09:37)
[2024-09-26] MEDS: allopurinoL 300 MG TABLET PO (09:37)
[2024-09-26] MEDS: METOPROLOL SUCCINATE EXT REL 25 MG TABCR PO (09:37)
[2024-09-26] MEDS: PANTOPRAZOLE 40 MG TABLET PO (09:37)
[2024-09-26] MEDS: FOLIC ACID 1 MG TABLET PO (09:37)
[2024-09-26] MEDS: ASPIRIN 81 MG CHEWABLE TABLET PO (09:37)
[2024-09-26] MEDS: FLUTICASONE/UMECLIDIN/VILANTER 100-62.5-25 MCG ELLIPTA 1 PUFF INHALATION (09:37)
[2024-09-26] MEDS: BETAMETHASONE/CLOTRIMAZOLE CREAM 15 GM TUBE 1 APPLIC TOPICAL ×2 (09:37→17:57)
[2024-09-26] MEDS: BUMETANIDE 1 MG TABLET 2 MG PO ×2 (09:37→17:56)
[2024-09-26] MEDS: TOLNAFTATE 1% POWDER 45 GM BTL 1 APPLIC TOPICAL ×2 (09:38→17:57)
[2024-09-26] MEDS: DOCUSATE SODIUM 100 MG CAPSULE PO (09:42)
[2024-09-26 12:06] LABS: Glucose Point of Care 144 mg/dl (65-105)
[2024-09-26 16:30] VITALS: BP 121/66; PULSE 58; RESP 16; TEMP 35.8; O2SAT 96
[2024-09-26 16:57] LABS: Glucose Point of Care 147 mg/dl (65-105)
[2024-09-26] MEDS: INSULIN GLARGINE (*BKC) 1,000 UNITS/10 ML VIAL 18 UNITS SUB-Q (17:57)
[2024-09-26] MEDS: ATORVASTATIN 40 MG TABLET 80 MG PO (21:02)
[2024-09-26] MEDS: hydrOXYzine HCL 25 MG TABLET 50 MG PO (21:02)
[2024-09-26] MEDS: traZODone HCL 50 MG TABLET 300 MG PO (21:03)
[2024-09-26] MEDS: HYDROcodone/acetaminophen (*CRX) 7.5-325 MG TABLET 1 TAB PO (21:03)
--- NOTE | 2024-09-26 21:30 | PC.NURSE ---
Daughter., Bonnie, notified that patient is currently considered a full code and patient states he is a DNR and had DNR band on from previous hospital. Bonnie to bring in paper work.
[2024-09-27] VITALS: BP 135/82; PULSE 61; RESP 17; TEMP 36.4; O2SAT 96
[2024-09-27 00:54] LABS: Glucose Point of Care 222 mg/dl (65-105)
[2024-09-27 05:30] VITALS: PULSE 64; RESP 20; O2SAT 96
[2024-09-27 05:35] LABS: Anion Gap 4 mmol/L (4-12); Blood Urea Nitrogen 43 mg/dL (7-18); Calcium 8.6 mg/dL (8.5-10.1); Carbon Dioxide 37 mmol/L (21-32); Chloride 107 mmol/L (98-108); Estimated CRCL calculation 38 ml/min; Estimated Glomerular Filt Rate 36; Glucose 158 mg/dL (70-99); Osmolality Calculated 319 mOsm/kg (285-295); Potassium 3.7 mmol/L (3.5-5.1); Sodium 148 mmol/L (136-145)
[2024-09-27 05:47] LABS: Prothrombin Time 49.7 Seconds (9.50-12.1)
[2024-09-27 06:02] LABS: INR 5.3
--- NOTE | 2024-09-27 06:04 | PC.NURSE ---
Lab called to report a critical INR of 5.3.
--- NOTE | 2024-09-27 06:35 | PC.NURSE ---
Conner Church NP, contacted regarding critical INR results of 5.3. Orders received and noted to hold pt's Coumadin for 09/27/24.
[2024-09-27 08:00] VITALS: BP 147/79; PULSE 52; RESP 18; TEMP 36.1; O2SAT 97
--- NOTE | 2024-09-27 08:57 | P.PNIM_ITS ---
Progress Note: A&P Assessment and Plan (1) Physical deconditioning: Code(s): R53.81 - Other malaise Status: Acute Assessment and Plan: * recent extended hospitalization * will continue with swing bed and physical and occupational therapy * up to chair with all meals 2/ * continue PT and OT (2) Fall: Onset Date: 02/01/22 Code(s): W19.XXXA - Unspecified fall, initial encounter Status: Acute Assessment and Plan: patient with multiple admissions for unsteady gait and falls * PT/OT 2/ * continue PT and OT (3) Right rib fracture: Code(s): S22.31XA - Fracture of one rib, right side, initial encounter for closed fracture Status: Acute Assessment and Plan: * HX of 7th and 8th right rib fracture * pain control * incentive spirometer 2 * continue pain control (4) Congestive heart failure: Code(s): I50.9 - Heart failure, unspecified Status: Chronic Assessment and Plan: * Resumed Bumex, carvedilol, Jardiance * does not appear in exacerbation 09/27 * appears to be a bit on the ore storage drier side as his INR keeps increasing even though we are holding his Coumadin, INR is 5.3 today, sodium 148 * increased his fluid restriction to 2000 mL per day * net negative 2550 on his I&O * continue daily weights * will hold dose of Bumex tonight and reassess in the morning (5) Status post mechanical aortic valve replacement: Onset Date: ~2013 Code(s): Z95.2 - Presence of prosthetic heart valve Status: Acute Assessment and Plan: * Daily INR * keep at 2.0 3.0 * adjust Coumadin as needed 7.5 increased to 10mg 09/27 * INR 5.3 today * Coumadin on hold * Will give 5 mg p.o. vitamin K today * will recheck INR in the morning * increased might be due to over diuresis (6) Diabetes mellitus: Code(s): E11.9 - Type 2 diabetes mellitus without complications Status: Acute Assessment and Plan: 09/27 * Blood sugars ranging 158-222 * Hgb A1C 7.0 on 08/30/2024 * Accu checks AC/HS * low-dose SSI ordered * hypoglycemic protocol in place * Diabetic diet ordered * continue Jardiance * continue Lantus 18 units at bedtime * continue to hold Ozempic * mealtime insulin 6 units discontinued on 09/22/2024 (7) Acute kidney injury superimposed on CKD: Code(s): N17.9 - Acute kidney failure, unspecified; N18.9 - Chronic kidney disease, unspecified Status: Acute Assessment and Plan: * Avoid nephrotoxic drugs. * Monitor antihypertensive drug therapy. * Avoid NSAIDs. * Routinely CMP monitoring GFR. 09/27 * creatinine today was 1.86 which is near his baseline of 1.47-1.53 * avoid nephrotoxic medication * continue to trend as needed (8) COPD (chronic obstructive pulmonary disease): Code(s): J44.9 - Chronic obstructive pulmonary disease, unspecified Status: Acute Assessment and Plan: * not in exacerbation * resume p.r.n. inhalers * oxygen p.r.n. reported patient is supposed to wear 2 L supplemental oxygen at home PRN with activity * will continue with patient's BiPAP at night 09/27 * patient requiring 2 L supplemental oxygen as needed with activity and also will require a BiPAP at night * patient does not have a BiPAP at home and an outpatient sleep study should be set up upon discharge * continue albuterol rescue inhaler Time Spent With Patient Time with patient: Greater than 35 minutes Subjective Date/time seen: 09/27/24 08:57 Interval history: Interval history: this is a 69-year-old male with a significant past medical history of SHEELA, chronic anemia, combined systolic and diastolic congestive heart failure, severe pulmonary hypertension, CVA, bilateral carotid artery stenosis, diabetes mellitus, chronic kidney disease stage IV, depression, COPD, diabetic neuropathy, gout, AFib, coronary artery disease, hyperlipidemia who presented to [facility] for swing bed program and additional rehab On 09/22/2024 after sustaining a fall, having pneumonia, and long hospital stay. Patient returned here from [facility] after being treated for acute respiratory failure and hypoxia secondary to CHF and worsening anasarca which has been complicated by chronic kidney disease. He is requiring oxygen with activity and BiPAP at night. Subjective: patient denies any fever, chills, nausea, vomiting, diarrhea, abdominal pain, chest pain, shortness a breath. EMR and labs reviewed. His INR today was 5.3, his Coumadin has been on hold however this has been climbing. We will go ahead and give vitamin K today. Review of Systems Review of Systems: All systems reviewed & are unremarkable except as noted in HPI and below Exam Narrative: General: In no acute distress, well nourished Head: atraumatic, no encephalopathy Eyes: PERRLA, sclera clear ENT: moist mucous membranes, nasal passages clear Neck: supple, no JVD, no adenopathy, trachea midline Cardiac: Normal S1 and S2. RRR, No murmur, gallops or friction rubs, peripheral pulses intact. Respiratory: Lungs clear to auscultation, no adventitious lung sounds, currently on room air Gastrointestinal: soft, distended, non-tender, normoactive bowel sounds. anasarca present : voiding without difficulty clear yellow urine. Extremities: moves all extremities well, anasarca Skin: clean, dry, intact. No wounds or lesions. Neuro: Alert and oriented x4, cranial nerves intact, no neuro deficits. Psych: normal mood, normal affect, interactive Objective Data Vital Signs Vital Signs: Vital Signs - 24 hr 09/26/24 09:37 09/26/24 16:30 09/27/24 00:00 Temperature 96.5 F L 97.6 F Pulse Rate 55 L 58 L 61 Respiratory Rate 16 17 Blood Pressure 121/66 135/82 Pulse Oximetry 96 96 Oxygen Delivery Room Air Room Air Intake/Output Intake/Output: Intake & Output 09/24/24 09/25/24 09/26/24 09/27/24 23:59 23:59 23:59 23:59 Intake Total 1400 1500 1090 260 Output Total 3250 3550 3450 1425 Balance -1850 -2050 -2360 -1165 Meds/Results Medications: Active Medications Generic Name Dose Route Start Last Admin Trade Name Freq PRN Reason Stop Dose Admin Acetaminophen 650 mg 09/21/24 14:28 Acetaminophen 325 Mg Tablet PO Q6H PRN Mild Pain (1-3) or Fever Hydrocodone Bitart/Acetaminophen 1 tab 09/21/24 14:27 09/26/24 21:03 Hydrocodone/Acetaminophen (*Crx) 7.5-325 Mg Tablet PO 1 tab Q8H PRN Administration Pain, Moderate Albuterol 2 puff 09/21/24 14:27 Albuterol Sulfate (*Sp) Inhaler INHALATION Q4H PRN Shortness Of Breath Allopurinol 300 mg 09/22/24 09:00 09/26/24 09:37 Allopurinol 300 Mg Tablet PO 300 mg DAILY SHAUNNA Administration Aspirin 81 mg 09/22/24 09:00 09/26/24 09:37 Aspirin 81 Mg Chewable Tablet PO 81 mg DAILY SHAUNNA Administration Atorvastatin Calcium 80 mg 09/21/24 21:00 09/26/24 21:02 Atorvastatin 40 Mg Tablet PO 80 mg HS SHAUNNA Administration Bumetanide 2 mg 09/24/24 09:00 09/26/24 17:56 Bumetanide 1 Mg Tablet PO 2 mg BID SHAUNNA Administration Clotrimazole 1 applic 09/21/24 17:00 09/26/24 17:57 Betamethasone/Clotrimazole Cream 15 Gm Tube TOPICAL 1 applic BID SHAUNNA Administration Dextrose 12.5 gm 09/21/24 14:28 Dextrose 50% 25 Gm/50 Ml Syringe IV PUSH PRN PRN Hypoglycemia Protocol Docusate Sodium 100 mg 09/21/24 14:27 09/26/24 09:42 Docusate Sodium 100 Mg Capsule PO 100 mg DAILY PRN Administration Constipation Empagliflozin 25 mg 09/22/24 09:00 09/26/24 09:37 Empagliflozin 25 Mg Tablet PO 25 mg DAILY SHAUNNA Administration Fluticasone/Umeclidinium/Vilanterol 1 puff 09/22/24 09:00 09/26/24 09:37 Fluticasone/Umeclidin/Vilanter 100-62.5-25 Mcg Ellipta INHALATION 1 puff DAILY SHAUNNA Administration Folic Acid 1 mg 09/22/24 09:00 09/26/24 09:37 Folic Acid 1 Mg Tablet PO 1 mg DAILY SHAUNNA Administration Glucagon 1 mg 09/21/24 14:28 Glucagon For Inj 1 Mg Vial IM PRN PRN Hypoglycemia Protocol Glucose 15 gm 09/21/24 14:28 Glucose Oral Gel 15 Gm Of Glucse In 37.5 Gm Tube PO PRN PRN Hypoglycemia Protocol Hydroxyzine HCl 50 mg 09/21/24 14:27 09/26/24 21:02 Hydroxyzine Hcl 25 Mg Tablet PO 50 mg TID PRN Administration itch Dextrose 1,000 mls @ 100 mls/hr 09/21/24 14:28 Dextrose 5% 1,000 Ml IVPB PRN PRN Hypoglycemia Protocol Insulin Glargine 18 units 09/21/24 18:00 09/26/24 17:57 Insulin Glargine (*Bkc) 1,000 Units/10 Ml Vial SUB-Q 18 units QPM SHAUNNA Administration Insulin Human Lispro 2 - 5 units 09/21/24 17:00 09/26/24 17:10 Insulin Human Lispro (*Bkc) 1,000 Units/10 Ml Vial SUB-Q Not Given TIDWM SHAUNNA Protocol Metoprolol Succinate 25 mg 09/22/24 09:00 09/26/24 09:37 Metoprolol Succinate Ext Rel 25 Mg Tabcr PO 25 mg DAILY SHAUNNA Administration Ondansetron HCl 4 mg 09/21/24 14:28 Ondansetron Hcl Odt 4 Mg Tablet PO Q6H PRN Nausea And Vomiting Pantoprazole Sodium 40 mg 09/22/24 09:00 09/26/24 09:37 Pantoprazole 40 Mg Tablet PO 40 mg DAILY SHAUNNA Administration Pregabalin 150 mg 09/21/24 17:00 09/26/24 17:56 Pregabalin (*Crx) 50 Mg Capsule PO 150 mg BID SHAUNNA Administration Sertraline HCl 50 mg 09/22/24 09:00 09/26/24 09:37 Sertraline Hcl 50 Mg Tablet PO 50 mg DAILY SHAUNNA Administration Tolnaftate 1 applic 09/21/24 17:00 09/26/24 17:57 Tolnaftate 1% Powder 45 Gm Btl TOPICAL 1 applic BID SHAUNNA Administration Trazodone HCl 300 mg 09/21/24 21:00 09/26/24 21:03 Trazodone Hcl 50 Mg Tablet PO 300 mg HS SHAUNNA Administration Warfarin Sodium 7.5 mg 09/27/24 17:00 Warfarin (*Pbkc) 2.5 Mg Tablet PO DAILY@1700 [facility] Labs Labs: Laboratory Results - last 24 hr 09/26/24 09/26/24 09/26/24 11:57 16:54 21:17 PT INR Sodium Potassium Chloride Carbon Dioxide Anion Gap BUN Creatinine Estim Creat Clear Calc Estimated GFR Glucose POC Capillary Glucose 144 H 147 H 222 H Calculated Osmolality Calcium 09/27/24 05:12 PT 49.7 H INR 5.3 H* Sodium 148 H Potassium 3.7 Chloride 107 Carbon Dioxide 37 H Anion Gap 4 BUN 43 H Creatinine 1.86 H Estim Creat Clear Calc 38 Estimated GFR 36 L Glucose 158 H POC Capillary Glucose Calculated Osmolality 319 H Calcium 8.6 Quality VTE Prophylaxis VTE prophylaxis: pharmacologic ordered
[2024-09-27 09:00] VITALS: BP 147/79; PULSE 48; RESP 18; TEMP 36.1; O2SAT 94
[2024-09-27] MEDS: allopurinoL 300 MG TABLET PO (09:00)
[2024-09-27] MEDS: ASPIRIN 81 MG CHEWABLE TABLET PO (09:00)
[2024-09-27] MEDS: BETAMETHASONE/CLOTRIMAZOLE CREAM 15 GM TUBE 1 APPLIC TOPICAL ×2 (09:01→17:48)
[2024-09-27] MEDS: FLUTICASONE/UMECLIDIN/VILANTER 100-62.5-25 MCG ELLIPTA 1 PUFF INHALATION (09:01)
[2024-09-27] MEDS: BUMETANIDE 1 MG TABLET 2 MG PO (09:01)
[2024-09-27] MEDS: FOLIC ACID 1 MG TABLET PO (09:02)
[2024-09-27] MEDS: EMPAGLIFLOZIN 25 MG TABLET PO (09:02)
[2024-09-27] MEDS: SERTRALINE HCL 50 MG TABLET PO (09:02)
[2024-09-27] MEDS: PANTOPRAZOLE 40 MG TABLET PO (09:02)
[2024-09-27] MEDS: PREGABALIN (*CRX) 50 MG CAPSULE 150 MG PO ×2 (09:02→17:48)
[2024-09-27 09:04] VITALS: PULSE 48
[2024-09-27 09:04] LABS: Basophils Absolute Auto 0.03 K/mm3 (0.00-0.10); Basophils Percent Auto 0.4 % (0.0-1.0); Eosinophils Absolute Auto 0.24 K/mm3 (0.02-0.50); Eosinophils Percent Auto 3.3 % (1.0-6.0); Hematocrit 37.8 % (37.0-46.0); Hemoglobin 10.9 g/dL (12.4-15.3); Immature Granulocyte Absolute 0.03 K/mm3 (0.00-0.00); Immature Granulocyte Percent A 0.4 % (0.0-0.0); Immature Platelet Fraction Pct 9.8 % (1.0-7.0); Lymphocytes Absolute Auto 1.42 K/mm3 (1.10-4.50); Lymphocytes Percent Auto 19.6 % (18.0-42.0); Mean Corpuscular HGB Conc 28.8 g/dL (32-36); Mean Corpuscular Volume 97.2 fL (78.0-102.0); Monocytes Absolute Auto 0.77 K/mm3 (0.10-0.90); Monocytes Percent Auto 10.6 % (2.0-11.0); Neutrophils Absolute Auto 4.77 K/mm3 (1.70-7.20); Neutrophils Percent Auto 65.7 % (50.0-70.0); Platelet Count Result 62 K/mm3 (150-420); Red Blood Count 3.89 M/mm3 (4.70-6.10); Red Cell Distribution Width 16.7 % (11.6-14.4); White Blood Count 7.3 K/mm3 (4.8-10.8)
[2024-09-27] MEDS: TOLNAFTATE 1% POWDER 45 GM BTL 1 APPLIC TOPICAL ×2 (09:05→17:49)
[2024-09-27 09:07] LABS: Magnesium 2.4 mg/dL (1.8-2.4)
[2024-09-27] MEDS: PHYTONADIONE 5 MG TABLET PO (11:23)
[2024-09-27 11:34] LABS: Glucose Point of Care 102 mg/dl (65-105)
[2024-09-27 11:34] LABS: Glucose Point of Care 183 mg/dl (65-105)
[2024-09-27 16:00] VITALS: BP 118/66; PULSE 67; RESP 20; TEMP 36.1; O2SAT 93
[2024-09-27 17:13] LABS: Glucose Point of Care 179 mg/dl (65-105)
[2024-09-27] MEDS: INSULIN GLARGINE (*BKC) 1,000 UNITS/10 ML VIAL 18 UNITS SUB-Q (17:49)
[2024-09-27] MEDS: HYDROcodone/acetaminophen (*CRX) 7.5-325 MG TABLET 1 TAB PO (20:24)
[2024-09-27] MEDS: ATORVASTATIN 40 MG TABLET 80 MG PO (20:27)
[2024-09-27] MEDS: traZODone HCL 50 MG TABLET 300 MG PO (20:27)
[2024-09-27 21:46] LABS: Glucose Point of Care 233 mg/dl (65-105)
[2024-09-28] VITALS: BP 121/75; PULSE 76; RESP 18; TEMP 36.4; O2SAT 94
--- NOTE | 2024-09-28 03:05 | PC.NURSE ---
Pt asleep and no signs of shortness of breath noted.
--- NOTE | 2024-09-28 04:00 | PC.NURSE ---
Pt dozing quietly in bed.
[2024-09-28 05:26] LABS: Basophils Absolute Auto 0.01 K/mm3 (0.00-0.10); Basophils Percent Auto 0.1 % (0.0-1.0); Eosinophils Absolute Auto 0.27 K/mm3 (0.02-0.50); Eosinophils Percent Auto 3.6 % (1.0-6.0); Hematocrit 33.3 % (37.0-46.0); Hemoglobin 9.7 g/dL (12.4-15.3); Immature Granulocyte Absolute 0.02 K/mm3 (0.00-0.00); Immature Granulocyte Percent A 0.3 % (0.0-0.0); Immature Platelet Fraction Pct 9.2 % (1.0-7.0); Lymphocytes Absolute Auto 1.36 K/mm3 (1.10-4.50); Lymphocytes Percent Auto 18.4 % (18.0-42.0); Mean Corpuscular HGB Conc 29.1 g/dL (32-36); Mean Corpuscular Volume 96.2 fL (78.0-102.0); Monocytes Absolute Auto 0.87 K/mm3 (0.10-0.90); Monocytes Percent Auto 11.8 % (2.0-11.0); Neutrophils Absolute Auto 4.87 K/mm3 (1.70-7.20); Neutrophils Percent Auto 65.8 % (50.0-70.0); Platelet Count Result 57 K/mm3 (150-420); Red Blood Count 3.46 M/mm3 (4.70-6.10); Red Cell Distribution Width 16.5 % (11.6-14.4); White Blood Count 7.4 K/mm3 (4.8-10.8)
[2024-09-28 05:30] VITALS: PULSE 67; RESP 20; O2SAT 96
[2024-09-28 05:36] LABS: INR 1.8; Prothrombin Time 19.2 Seconds (9.50-12.1)
[2024-09-28 05:40] LABS: Alanine Aminotransferase 48 U/L (16-63); Albumin Level 2.8 g/dL (3.4-5.0); Alkaline Phosphatase 163 U/L (46-116); Anion Gap 7 mmol/L (4-12); Aspartate Amino Transferase 21 U/L (15-37); Bilirubin,Total 1.1 mg/dL (0.00-1.00); Blood Urea Nitrogen 38 mg/dL (7-18); Calcium 8.3 mg/dL (8.5-10.1); Carbon Dioxide 35 mmol/L (21-32); Chloride 106 mmol/L (98-108); Estimated CRCL calculation 40 ml/min; Estimated Glomerular Filt Rate 39; Glucose 157 mg/dL (70-99); Magnesium 2.3 mg/dL (1.8-2.4); Osmolality Calculated 318 mOsm/kg (285-295); Potassium 3.4 mmol/L (3.5-5.1); Sodium 148 mmol/L (136-145); Total Protein 6.6 g/dL (6.4-8.2)
--- NOTE | 2024-09-28 06:19 | PC.NURSE ---
Pt asleep with the Bi-pap on. No signs of respiratory distress noted.
[2024-09-28 08:00] VITALS: BP 122/66; PULSE 56; RESP 18; TEMP 35.9; O2SAT 94
[2024-09-28 08:17] LABS: Glucose Point of Care 104 mg/dl (65-105)
[2024-09-28 09:55] VITALS: PULSE 56
[2024-09-28] MEDS: PANTOPRAZOLE 40 MG TABLET PO (09:55)
[2024-09-28] MEDS: METOPROLOL SUCCINATE EXT REL 25 MG TABCR PO (09:55)
[2024-09-28] MEDS: ASPIRIN 81 MG CHEWABLE TABLET PO (09:55)
[2024-09-28] MEDS: FOLIC ACID 1 MG TABLET PO (09:55)
[2024-09-28] MEDS: allopurinoL 300 MG TABLET PO (09:55)
[2024-09-28] MEDS: FLUTICASONE/UMECLIDIN/VILANTER 100-62.5-25 MCG ELLIPTA 1 PUFF INHALATION (09:56)
[2024-09-28] MEDS: BETAMETHASONE/CLOTRIMAZOLE CREAM 15 GM TUBE 1 APPLIC TOPICAL ×2 (09:56→17:55)
[2024-09-28] MEDS: EMPAGLIFLOZIN 25 MG TABLET PO (09:56)
[2024-09-28] MEDS: PREGABALIN (*CRX) 50 MG CAPSULE 150 MG PO ×2 (09:56→17:56)
[2024-09-28] MEDS: SERTRALINE HCL 50 MG TABLET PO (09:56)
[2024-09-28] MEDS: TOLNAFTATE 1% POWDER 45 GM BTL 1 APPLIC TOPICAL ×2 (09:56→17:55)
--- NOTE | 2024-09-28 11:17 | PM.EVENT ---
Event Note Event Note Event Note: I restarted the patient Bumex last night has drank a whole liter of fluids and I do not want him fluid overloaded. we will continue to monitor.
--- NOTE | 2024-09-28 11:19 | PM.EVENT ---
Event Note Event Note Event Note: We will restart the Bumex as he drank 1 liter of fluids I do not want him fluid overload. Todays INR is 1.8 we will restart the coumadin he is going to start at 7.5
[2024-09-28 12:09] LABS: Glucose Point of Care 131 mg/dl (65-105)
[2024-09-28 16:00] VITALS: BP 95/51; PULSE 61; RESP 18; TEMP 36.3; O2SAT 92
[2024-09-28 17:03] LABS: Glucose Point of Care 146 mg/dl (65-105)
[2024-09-28] MEDS: WARFARIN (*PBKC) 2.5 MG TABLET 7.5 MG PO (17:55)
[2024-09-28] MEDS: BUMETANIDE 1 MG TABLET 2 MG PO (17:55)
[2024-09-28] MEDS: INSULIN GLARGINE (*BKC) 1,000 UNITS/10 ML VIAL 18 UNITS SUB-Q (17:56)
[2024-09-28 20:55] LABS: Glucose Point of Care 158 mg/dl (65-105)
[2024-09-28] MEDS: hydrOXYzine HCL 25 MG TABLET 50 MG PO (20:58)
[2024-09-28] MEDS: HYDROcodone/acetaminophen (*CRX) 7.5-325 MG TABLET 1 TAB PO (20:58)
[2024-09-28] MEDS: ATORVASTATIN 40 MG TABLET 80 MG PO (20:58)
[2024-09-28] MEDS: traZODone HCL 50 MG TABLET 300 MG PO (20:58)
[2024-09-29] VITALS: BP 120/71; PULSE 65; RESP 18; TEMP 36.6; O2SAT 94
[2024-09-29 05:30] VITALS: PULSE 65; RESP 20; O2SAT 97
[2024-09-29 05:48] LABS: Basophils Absolute Auto 0.02 K/mm3 (0.00-0.10); Basophils Percent Auto 0.3 % (0.0-1.0); Eosinophils Absolute Auto 0.27 K/mm3 (0.02-0.50); Hemoglobin 10.1 g/dL (12.4-15.3); Immature Granulocyte Absolute 0.02 K/mm3 (0.00-0.00); Immature Granulocyte Percent A 0.3 % (0.0-0.0); Immature Platelet Fraction Pct 9.2 % (1.0-7.0); Lymphocytes Absolute Auto 1.59 K/mm3 (1.10-4.50); Lymphocytes Percent Auto 23.7 % (18.0-42.0); Mean Corpuscular HGB Conc 29.7 g/dL (32-36); Mean Corpuscular Hemoglobin 28.3 pg (27.0-31.0); Mean Corpuscular Volume 95.2 fL (78.0-102.0); Monocytes Absolute Auto 0.74 K/mm3 (0.10-0.90); Neutrophils Absolute Auto 4.08 K/mm3 (1.70-7.20); Neutrophils Percent Auto 60.7 % (50.0-70.0); Platelet Count Result 54 K/mm3 (150-420); Red Blood Count 3.57 M/mm3 (4.70-6.10); Red Cell Distribution Width 16.6 % (11.6-14.4); White Blood Count 6.7 K/mm3 (4.8-10.8)
[2024-09-29 06:02] LABS: INR 1.3; Prothrombin Time 13.9 Seconds (9.50-12.1)
[2024-09-29 06:05] LABS: Alanine Aminotransferase 51 U/L (16-63); Albumin Level 2.8 g/dL (3.4-5.0); Alkaline Phosphatase 171 U/L (46-116); Anion Gap 6 mmol/L (4-12); Aspartate Amino Transferase 29 U/L (15-37); Bilirubin,Total 1.2 mg/dL (0.00-1.00); Blood Urea Nitrogen 37 mg/dL (7-18); Calcium 8.4 mg/dL (8.5-10.1); Carbon Dioxide 33 mmol/L (21-32); Chloride 105 mmol/L (98-108); Estimated CRCL calculation 42 ml/min; Estimated Glomerular Filt Rate 42; Glucose 131 mg/dL (70-99); Magnesium 2.3 mg/dL (1.8-2.4); Osmolality Calculated 308 mOsm/kg (285-295); Potassium 3.4 mmol/L (3.5-5.1); Sodium 144 mmol/L (136-145); Total Protein 6.7 g/dL (6.4-8.2)
[2024-09-29 07:36] LABS: Glucose Point of Care 88 mg/dl (65-105)
[2024-09-29 08:00] VITALS: BP 115/65; PULSE 76; RESP 18; TEMP 36.4; O2SAT 98
[2024-09-29 08:45] VITALS: PULSE 76
[2024-09-29] MEDS: TOLNAFTATE 1% POWDER 45 GM BTL 1 APPLIC TOPICAL ×2 (08:45→16:52)
[2024-09-29] MEDS: EMPAGLIFLOZIN 25 MG TABLET PO (08:45)
[2024-09-29] MEDS: METOPROLOL SUCCINATE EXT REL 25 MG TABCR PO (08:45)
[2024-09-29] MEDS: allopurinoL 300 MG TABLET PO (08:45)
[2024-09-29] MEDS: FOLIC ACID 1 MG TABLET PO (08:45)
[2024-09-29] MEDS: PREGABALIN (*CRX) 50 MG CAPSULE 150 MG PO ×2 (08:45→16:51)
[2024-09-29] MEDS: BUMETANIDE 1 MG TABLET 2 MG PO ×2 (08:45→16:50)
[2024-09-29] MEDS: PANTOPRAZOLE 40 MG TABLET PO (08:45)
[2024-09-29] MEDS: BETAMETHASONE/CLOTRIMAZOLE CREAM 15 GM TUBE 1 APPLIC TOPICAL ×2 (08:45→16:52)
[2024-09-29] MEDS: ASPIRIN 81 MG CHEWABLE TABLET PO (08:45)
[2024-09-29] MEDS: SERTRALINE HCL 50 MG TABLET PO (08:45)
[2024-09-29] MEDS: FLUTICASONE/UMECLIDIN/VILANTER 100-62.5-25 MCG ELLIPTA 1 PUFF INHALATION (08:46)
[2024-09-29 11:39] LABS: Glucose Point of Care 167 mg/dl (65-105)
[2024-09-29 16:00] VITALS: BP 128/68; PULSE 54; RESP 18; TEMP 36.1; O2SAT 95
[2024-09-29 16:42] LABS: Glucose Point of Care 138 mg/dl (65-105)
[2024-09-29] MEDS: WARFARIN (*PBKC) 2.5 MG TABLET PO (16:49)
[2024-09-29] MEDS: WARFARIN (*PBKC) 2.5 MG TABLET 7.5 MG PO (16:49)
[2024-09-29] MEDS: hydrOXYzine HCL 25 MG TABLET 50 MG PO (16:50)
[2024-09-29] MEDS: DOCUSATE SODIUM 100 MG CAPSULE PO (16:55)
[2024-09-29 21:33] LABS: Glucose Point of Care 208 mg/dl (65-105)
[2024-09-29] MEDS: traZODone HCL 50 MG TABLET 300 MG PO (21:33)
[2024-09-29] MEDS: ATORVASTATIN 40 MG TABLET 80 MG PO (21:33)
[2024-09-29] MEDS: HYDROcodone/acetaminophen (*CRX) 7.5-325 MG TABLET 1 TAB PO (21:34)
[2024-09-30] VITALS: BP 109/63; PULSE 58; RESP 20; TEMP 35.7; O2SAT 97
--- NOTE | 2024-09-30 00:20 | PC.NURSE ---
Pt sitting in the chair watching TV. Pt assisted to bed and Bi-pap put on. Pt doesnt voice any c/o shortness of breath at this time.
--- NOTE | 2024-09-30 01:15 | PC.NURSE ---
Pt assisted with adjusting Bipap to fit better.
--- NOTE | 2024-09-30 02:12 | PC.NURSE ---
Pt asleep and no signs of respiratory distress noted. Bipap remains in place.
--- NOTE | 2024-09-30 04:08 | PC.NURSE ---
Pt assisted to bedside to void; Pt voided 575 ml of clear, ayaka urine. Pt assisted back to bed and Bipap readjusted to fit.
[2024-09-30 05:30] VITALS: PULSE 60; RESP 20; O2SAT 96
--- NOTE | 2024-09-30 06:23 | PC.NURSE ---
Pt's weight is 100.6 kg. Pt sleeping and Bipap in place. No signs of shortness of breath noted.
[2024-09-30 07:06] LABS: Basophils Absolute Auto 0.02 K/mm3 (0.00-0.10); Basophils Percent Auto 0.3 % (0.0-1.0); Eosinophils Absolute Auto 0.37 K/mm3 (0.02-0.50); Eosinophils Percent Auto 5.4 % (1.0-6.0); Hematocrit 35.4 % (37.0-46.0); Hemoglobin 10.4 g/dL (12.4-15.3); Immature Granulocyte Absolute 0.02 K/mm3 (0.00-0.00); Immature Granulocyte Percent A 0.3 % (0.0-0.0); Lymphocytes Absolute Auto 1.65 K/mm3 (1.10-4.50); Lymphocytes Percent Auto 23.9 % (18.0-42.0); Mean Corpuscular HGB Conc 29.4 g/dL (32-36); Mean Corpuscular Hemoglobin 28.1 pg (27.0-31.0); Mean Corpuscular Volume 95.7 fL (78.0-102.0); Monocytes Percent Auto 11.6 % (2.0-11.0); Neutrophils Absolute Auto 4.04 K/mm3 (1.70-7.20); Neutrophils Percent Auto 58.5 % (50.0-70.0); Platelet Count Result 55 K/mm3 (150-420); Red Cell Distribution Width 16.8 % (11.6-14.4); White Blood Count 6.9 K/mm3 (4.8-10.8)
[2024-09-30 07:18] LABS: INR 1.5; Prothrombin Time 16.4 Seconds (9.50-12.1)
[2024-09-30 07:20] LABS: Alanine Aminotransferase 52 U/L (16-63); Alkaline Phosphatase 174 U/L (46-116); Anion Gap 5 mmol/L (4-12); Aspartate Amino Transferase 18 U/L (15-37); Blood Urea Nitrogen 36 mg/dL (7-18); Calcium 8.6 mg/dL (8.5-10.1); Carbon Dioxide 35 mmol/L (21-32); Chloride 108 mmol/L (98-108); Estimated CRCL calculation 38 ml/min; Estimated Glomerular Filt Rate 37; Glucose 143 mg/dL (70-99); Magnesium 2.4 mg/dL (1.8-2.4); Osmolality Calculated 316 mOsm/kg (285-295); Potassium 3.8 mmol/L (3.5-5.1); Sodium 148 mmol/L (136-145); Total Protein 7.1 g/dL (6.4-8.2)
[2024-09-30 07:52] LABS: Glucose Point of Care 124 mg/dl (65-105)
[2024-09-30 08:00] VITALS: BP 141/58; PULSE 59; RESP 20; TEMP 36; O2SAT 90
[2024-09-30] MEDS: PREGABALIN (*CRX) 50 MG CAPSULE 150 MG PO ×2 (09:00→16:50)
[2024-09-30] MEDS: FOLIC ACID 1 MG TABLET PO (09:01)
[2024-09-30] MEDS: ASPIRIN 81 MG CHEWABLE TABLET PO (09:02)
[2024-09-30] MEDS: SERTRALINE HCL 50 MG TABLET PO (09:02)
[2024-09-30] MEDS: allopurinoL 300 MG TABLET PO (09:02)
[2024-09-30] MEDS: PANTOPRAZOLE 40 MG TABLET PO (09:02)
[2024-09-30 09:03] VITALS: PULSE 88
[2024-09-30] MEDS: BUMETANIDE 1 MG TABLET 2 MG PO ×2 (09:03→16:51)
[2024-09-30] MEDS: EMPAGLIFLOZIN 25 MG TABLET PO (09:03)
[2024-09-30] MEDS: METOPROLOL SUCCINATE EXT REL 25 MG TABCR PO (09:03)
[2024-09-30] MEDS: FLUTICASONE/UMECLIDIN/VILANTER 100-62.5-25 MCG ELLIPTA 1 PUFF INHALATION (09:03)
[2024-09-30] MEDS: BETAMETHASONE/CLOTRIMAZOLE CREAM 15 GM TUBE 1 APPLIC TOPICAL ×2 (09:04→16:49)
[2024-09-30] MEDS: TOLNAFTATE 1% POWDER 45 GM BTL 1 APPLIC TOPICAL ×2 (09:04→16:55)
[2024-09-30 11:56] LABS: Glucose Point of Care 178 mg/dl (65-105)
--- NOTE | 2024-09-30 14:15 | P.PNIM_ITS ---
Progress Note: A&P Assessment and Plan (1) Physical deconditioning: Code(s): R53.81 - Other malaise Status: Acute Assessment and Plan: * recent extended hospitalization * will continue with swing bed and physical and occupational therapy * up to chair with all meals 09/27 * continue PT and OT 09/30 * No change to current treatment plan (2) Fall: Onset Date: 02/01/22 Code(s): W19.XXXA - Unspecified fall, initial encounter Status: Acute Assessment and Plan: patient with multiple admissions for unsteady gait and falls * PT/OT 2 * continue PT and OT 09/30 * no change to current treatment plan (3) Right rib fracture: Code(s): S22.31XA - Fracture of one rib, right side, initial encounter for closed fracture Status: Acute Assessment and Plan: * HX of 7th and 8th right rib fracture * pain control * incentive spirometer 09/27 * continue pain control 09/30 * no change to current treatment plan (4) Congestive heart failure: Code(s): I50.9 - Heart failure, unspecified Status: Chronic Assessment and Plan: * Resumed Bumex, carvedilol, Jardiance * does not appear in exacerbation 2/5 * 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 as his INR keeps increasing even though we are holding his Coumadin, INR is 5.3 today, sodium 148 * increased his fluid restriction to 2000 mL per day * net negative 2550 on his I&O * continue daily weights * will hold dose of Bumex tonight and reassess in the morning 09/30 * increased fluid restriction to 2500 mL per day * sodium 148, patient complaining of thirst * continue Bumex (5) Status post mechanical aortic valve replacement: Onset Date: ~2013 Code(s): Z95.2 - Presence of prosthetic heart valve Status: Acute Assessment and Plan: * Daily INR * keep at 2.0 3.0 * adjust Coumadin as needed 7.5 increased to 10mg 09/27 * INR 5.3 today * Coumadin on hold * Will give 5 mg p.o. vitamin K today * will recheck INR in the morning * increased might be due to over diuresis 09/30 * INR 1.5 today Coumadin was restarted yesterday * will increase to 9 mg today * will recheck INR tomorrow (6) Diabetes mellitus: Code(s): E11.9 - Type 2 diabetes mellitus without complications Status: Acute Assessment and Plan: 09/27 * Blood sugars ranging 158-222 * Hgb A1C 7.0 on 08/30/2024 * Accu checks AC/HS * low-dose SSI ordered * hypoglycemic protocol in place * Diabetic diet ordered * continue Jardiance * continue Lantus 18 units at bedtime * continue to hold Ozempic * mealtime insulin 6 units discontinued on 09/22/2024 (7) Acute kidney injury superimposed on CKD: Code(s): N17.9 - Acute kidney failure, unspecified; N18.9 - Chronic kidney disease, unspecified Status: Acute Assessment and Plan: * Avoid nephrotoxic drugs. * Monitor antihypertensive drug therapy. * Avoid NSAIDs. * Routinely CMP monitoring GFR. 09/27 * creatinine today was 1.86 which is near his baseline of 1.47-1.53 * avoid nephrotoxic medication * continue to trend as needed 09/28 * creatinine 1.82 * continue to trend (8) COPD (chronic obstructive pulmonary disease): Code(s): J44.9 - Chronic obstructive pulmonary disease, unspecified Status: Acute Assessment and Plan: * not in exacerbation * resume p.r.n. inhalers * oxygen p.r.n. reported patient is supposed to wear 2 L supplemental oxygen at home PRN with activity * will continue with patient's BiPAP at night 09/27 * patient requiring 2 L supplemental oxygen as needed with activity and also will require a BiPAP at night * patient does not have a BiPAP at home and an outpatient sleep study should be set up upon discharge * continue albuterol rescue inhaler 09/28 * no change to current treatment plan Time Spent With Patient Time with patient: 25 - 35 minutes Subjective Date/time seen: 09/30/24 14:15 Interval history: Interval history: this is a 69-year-old male with a significant past medical history of SHEELA, chronic anemia, combined systolic and diastolic congestive heart failure, severe pulmonary hypertension, CVA, bilateral carotid artery stenosis, diabetes mellitus, chronic kidney disease stage IV, depression, COPD, diabetic neuropathy, gout, AFib, coronary artery disease, hyperlipidemia who presented to [facility] for swing bed program and additional rehab On 09/22/2024 after sustaining a fall, having pneumonia, and long hospital stay. Patient returned here from [facility] after being treated for acute respiratory failure and hypoxia secondary to CHF and worsening anasarca which has been complicated by chronic kidney disease. He is requiring oxygen with activity and BiPAP at night. Subjective: patient denies any new complaints today. His Coumadin was restarted and his INR was 1.5 today. 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 Review of Systems Review of Systems: All systems reviewed & are unremarkable except as noted in HPI and below Exam Narrative: General: In no acute distress, well nourished Cardiac: Normal S1 and S2. RRR, No murmur, gallops or friction rubs, peripheral pulses intact. Respiratory: Lungs clear to auscultation, no adventitious lung sounds, currently on room air Gastrointestinal: soft, distended, non-tender, normoactive bowel sounds. anasarca present : voiding without difficulty clear yellow urine. Neuro: Alert and oriented x4 Objective Data Vital Signs Vital Signs: Vital Signs - 24 hr 09/29/24 16:00 09/29/24 20:00 09/30/24 00:00 Temperature 96.9 F L 96.2 F L Pulse Rate 54 L 58 L Respiratory Rate 18 20 Blood Pressure 128/68 109/63 Pulse Oximetry 95 97 Oxygen Delivery Room Air Room Air Room Air 09/30/24 08:00 09/30/24 09:03 Temperature 96.8 F L Pulse Rate 59 L 88 Respiratory Rate 20 Blood Pressure 141/58 H Pulse Oximetry 90 Oxygen Delivery Room Air Intake/Output Intake/Output: Intake & Output 02/05/25 02/06/25 02/07/25 02/08/25 23:59 23:59 23:59 23:59 Intake Total 1580 2340 1260 740 Output Total 3350 1525 1725 1575 Balance -1770 497 -581 -585 Meds/Results Medications: Active Medications Generic Name Dose Route Start Last Admin Trade Name Freq PRN Reason Stop Dose Admin Acetaminophen 650 mg 09/21/24 14:28 Acetaminophen 325 Mg Tablet PO Q6H PRN Mild Pain (1-3) or Fever Hydrocodone Bitart/Acetaminophen 1 tab 09/21/24 14:27 09/29/24 21:34 Hydrocodone/Acetaminophen (*Crx) 7.5-325 Mg Tablet PO 1 tab Q8H PRN Administration Pain, Moderate Albuterol 2 puff 09/21/24 14:27 Albuterol Sulfate (*Sp) Inhaler INHALATION Q4H PRN Shortness Of Breath Allopurinol 300 mg 09/22/24 09:00 09/30/24 09:02 Allopurinol 300 Mg Tablet PO 300 mg DAILY SHAUNNA Administration Aspirin 81 mg 09/22/24 09:00 09/30/24 09:02 Aspirin 81 Mg Chewable Tablet PO 81 mg DAILY SHAUNNA Administration Atorvastatin Calcium 80 mg 09/21/24 21:00 09/29/24 21:33 Atorvastatin 40 Mg Tablet PO 80 mg HS SHAUNNA Administration Bumetanide 2 mg 09/24/24 09:00 09/30/24 09:03 Bumetanide 1 Mg Tablet PO 2 mg BID SHAUNNA Administration Clotrimazole 1 applic 09/21/24 17:00 09/30/24 09:04 Betamethasone/Clotrimazole Cream 15 Gm Tube TOPICAL 1 applic BID SHAUNNA Administration Dextrose 12.5 gm 09/21/24 14:28 Dextrose 50% 25 Gm/50 Ml Syringe IV PUSH PRN PRN Hypoglycemia Protocol Docusate Sodium 100 mg 09/21/24 14:27 09/29/24 16:55 Docusate Sodium 100 Mg Capsule PO 100 mg DAILY PRN Administration Constipation Empagliflozin 25 mg 09/22/24 09:00 09/30/24 09:03 Empagliflozin 25 Mg Tablet PO 25 mg DAILY SHAUNNA Administration Fluticasone/Umeclidinium/Vilanterol 1 puff 09/22/24 09:00 09/30/24 09:03 Fluticasone/Umeclidin/Vilanter 100-62.5-25 Mcg Ellipta INHALATION 1 puff DAILY SHAUNNA Administration Folic Acid 1 mg 09/22/24 09:00 09/30/24 09:01 Folic Acid 1 Mg Tablet PO 1 mg DAILY SHAUNNA Administration Glucagon 1 mg 09/21/24 14:28 Glucagon For Inj 1 Mg Vial IM PRN PRN Hypoglycemia Protocol Glucose 15 gm 09/21/24 14:28 Glucose Oral Gel 15 Gm Of Glucse In 37.5 Gm Tube PO PRN PRN Hypoglycemia Protocol Hydroxyzine HCl 50 mg 09/21/24 14:27 09/29/24 16:50 Hydroxyzine Hcl 25 Mg Tablet PO 50 mg TID PRN Administration itch Dextrose 1,000 mls @ 100 mls/hr 09/21/24 14:28 Dextrose 5% 1,000 Ml IVPB PRN PRN Hypoglycemia Protocol Insulin Glargine 18 units 09/21/24 18:00 09/29/24 17:23 Insulin Glargine (*Bkc) 1,000 Units/10 Ml Vial SUB-Q Not Given QPM [facility] Insulin Human Lispro 2 - 5 units 09/21/24 17:00 09/30/24 12:00 Insulin Human Lispro (*Bkc) 1,000 Units/10 Ml Vial SUB-Q Not Given TIDWM [facility] Protocol Metoprolol Succinate 25 mg 09/22/24 09:00 09/30/24 09:03 Metoprolol Succinate Ext Rel 25 Mg Tabcr PO 25 mg DAILY SHAUNNA Administration Ondansetron HCl 4 mg 09/21/24 14:28 Ondansetron Hcl Odt 4 Mg Tablet PO Q6H PRN Nausea And Vomiting Pantoprazole Sodium 40 mg 09/22/24 09:00 09/30/24 09:02 Pantoprazole 40 Mg Tablet PO 40 mg DAILY SHAUNNA Administration Pregabalin 150 mg 09/21/24 17:00 09/30/24 09:00 Pregabalin (*Crx) 50 Mg Capsule PO 150 mg BID SHAUNNA Administration Sertraline HCl 50 mg 09/22/24 09:00 09/30/24 09:02 Sertraline Hcl 50 Mg Tablet PO 50 mg DAILY SHAUNNA Administration Tolnaftate 1 applic 09/21/24 17:00 09/30/24 09:04 Tolnaftate 1% Powder 45 Gm Btl TOPICAL 1 applic BID SAHUNNA Administration Trazodone HCl 300 mg 09/21/24 21:00 09/29/24 21:33 Trazodone Hcl 50 Mg Tablet PO 300 mg HS SHAUNNA Administration Warfarin Sodium 9 mg 09/30/24 17:00 Warfarin (*Pbkc) 1 Mg Tablet PO DAILY@1700 [facility] Labs Labs: Laboratory Results - last 24 hr 09/29/24 09/29/24 09/30/24 16:37 21:31 06:59 WBC 6.9 RBC 3.70 L Hgb 10.4 L Hct 35.4 L MCV 95.7 MCH 28.1 MCHC 29.4 L RDW 16.8 H Plt Count 55 L MPV Not Reportable Immature Gran % (Auto) 0.3 H Neut % (Auto) 58.5 Lymph % (Auto) 23.9 Pierce % (Auto) 11.6 H Eos % (Auto) 5.4 Baso % (Auto) 0.3 Lymph # (Auto) 1.65 Pierce # (Auto) 0.80 Eos # (Auto) 0.37 Baso # (Auto) 0.02 Abs Immat Gran (auto) 0.02 H Absolute Neuts (auto) 4.04 Absolute Nucleated RBC 0.00 Nucleated RBC % 0.0 % Immature Plt Fraction 8.0 H PT 16.4 H INR 1.5 Sodium 148 H Potassium 3.8 Chloride 108 Carbon Dioxide 35 H Anion Gap 5 BUN 36 H Creatinine 1.82 H Estim Creat Clear Calc 38 Estimated GFR 37 L Glucose 143 H POC Capillary Glucose 138 H 208 H Calculated Osmolality 316 H Calcium 8.6 Magnesium 2.4 Total Bilirubin 1.0 AST 18 ALT 52 Alkaline Phosphatase 174 H Total Protein 7.1 Albumin 3.0 L 09/30/24 09/30/24 07:46 11:51 WBC RBC Hgb Hct MCV MCH MCHC RDW Plt Count MPV Immature Gran % (Auto) Neut % (Auto) Lymph % (Auto) Pierce % (Auto) Eos % (Auto) Baso % (Auto) Lymph # (Auto) Pierce # (Auto) Eos # (Auto) Baso # (Auto) Abs Immat Gran (auto) Absolute Neuts (auto) Absolute Nucleated RBC Nucleated RBC % % Immature Plt Fraction PT INR Sodium Potassium Chloride Carbon Dioxide Anion Gap BUN Creatinine Estim Creat Clear Calc Estimated GFR Glucose POC Capillary Glucose 124 H 178 H Calculated Osmolality Calcium Magnesium Total Bilirubin AST ALT Alkaline Phosphatase Total Protein Albumin Quality VTE Prophylaxis VTE prophylaxis: pharmacologic ordered
--- NOTE | 2024-09-30 15:10 | PC.NURSE ---
280mL of fresh water given for evening shift per order d/t fluid restriction.
[2024-09-30 16:00] VITALS: BP 124/81; PULSE 70; RESP 17; TEMP 36.1; O2SAT 96
[2024-09-30] MEDS: WARFARIN (*PBKC) 1 MG TABLET 9 MG PO (16:51)
[2024-09-30] MEDS: INSULIN HUMAN LISPRO (*BKC) 1,000 UNITS/10 ML VIAL SUB-Q (16:54)
[2024-09-30 16:55] LABS: Glucose Point of Care 285 mg/dl (65-105)
[2024-09-30] MEDS: INSULIN GLARGINE (*BKC) 1,000 UNITS/10 ML VIAL 18 UNITS SUB-Q (17:01)
--- NOTE | 2024-09-30 17:30 | PC.NURSE ---
Patient required extra fluids to take PM medications d/t having drank his ordered amount. Fluid restriction education attempted, with little success. Patient states, I'm just so thirsty. Ice chips also given per pt request.
[2024-09-30 20:00] VITALS: PULSE 70; RESP 17; O2SAT 96
[2024-09-30] MEDS: traZODone HCL 50 MG TABLET 300 MG PO (20:57)
[2024-09-30] MEDS: hydrOXYzine HCL 25 MG TABLET 50 MG PO (20:57)
[2024-09-30] MEDS: ATORVASTATIN 40 MG TABLET 80 MG PO (20:57)
[2024-09-30] MEDS: HYDROcodone/acetaminophen (*CRX) 7.5-325 MG TABLET 1 TAB PO (20:58)
[2024-09-30 21:02] LABS: Glucose Point of Care 214 mg/dl (65-105)
--- NOTE | 2024-09-30 21:22 | PC.NURSE ---
Patient continues to be non-compliant with fluid restriction this shift.
[2024-10-01] VITALS: BP 101/55; PULSE 54; RESP 20; TEMP 35.9; O2SAT 94
--- NOTE | 2024-10-01 00:10 | PC.NURSE ---
Pt assisted with using the urinal and he voided 475 ml of clear, ayaka urine. Pt assisted to bed and helped with putting the Bipap on. SAO2 is 94% on room air and respirations are even and unlabored.
--- NOTE | 2024-10-01 04:00 | PC.NURSE ---
Pt asleep with Bipap in place. No signs of respiratory distress noted.
[2024-10-01 05:30] VITALS: PULSE 64; RESP 20; O2SAT 95
--- NOTE | 2024-10-01 06:20 | PC.NURSE ---
Pt weighed and assisted out of bed to sit in the chair. Up with the walker, belt and standby assist of one.
[2024-10-01 08:00] VITALS: BP 109/61; PULSE 55; RESP 16; TEMP 35.7; O2SAT 97
[2024-10-01 08:07] LABS: Glucose Point of Care 106 mg/dl (65-105)
[2024-10-01 08:25] VITALS: PULSE 55; RESP 16; O2SAT 97
--- NOTE | 2024-10-01 08:40 | P.PNIM_ITS ---
Progress Note: A&P Assessment and Plan (1) Physical deconditioning: Code(s): R53.81 - Other malaise Status: Acute Assessment and Plan: * recent extended hospitalization * will continue with swing bed and physical and occupational therapy * up to chair with all meals 09/27 * continue PT and OT 09/30 * No change to current treatment plan (2) Fall: Onset Date: 02/01/22 Code(s): W19.XXXA - Unspecified fall, initial encounter Status: Acute Assessment and Plan: patient with multiple admissions for unsteady gait and falls * PT/OT 2 * continue PT and OT 09/30 * no change to current treatment plan (3) Right rib fracture: Code(s): S22.31XA - Fracture of one rib, right side, initial encounter for closed fracture Status: Acute Assessment and Plan: * HX of 7th and 8th right rib fracture * pain control * incentive spirometer 09/27 * continue pain control 09/30 * no change to current treatment plan (4) Congestive heart failure: Code(s): I50.9 - Heart failure, unspecified Status: Chronic Assessment and Plan: * Resumed Bumex, carvedilol, Jardiance * does not appear in exacerbation 2/5 * 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 as his INR keeps increasing even though we are holding his Coumadin, INR is 5.3 today, sodium 148 * increased his fluid restriction to 2000 mL per day * net negative 2550 on his I&O * continue daily weights * will hold dose of Bumex tonight and reassess in the morning 09/30 * increased fluid restriction to 2500 mL per day * sodium 148, patient complaining of thirst * continue Bumex (5) Status post mechanical aortic valve replacement: Onset Date: ~2013 Code(s): Z95.2 - Presence of prosthetic heart valve Status: Acute Assessment and Plan: * Daily INR * keep at 2.0 3.0 * adjust Coumadin as needed 7.5 increased to 10mg 09/27 * INR 5.3 today * Coumadin on hold * Will give 5 mg p.o. vitamin K today * will recheck INR in the morning * increased might be due to over diuresis 09/30 * INR 1.5 today Coumadin was restarted yesterday * will increase to 9 mg today * will recheck INR tomorrow 10/01 * INR 2.1 today * Continue coumadin 9 mg tonight * Continue to trend INR (6) Diabetes mellitus: Code(s): E11.9 - Type 2 diabetes mellitus without complications Status: Acute Assessment and Plan: 09/27 * Blood sugars ranging 158-222 * Hgb A1C 7.0 on 08/30/2024 * Accu checks AC/HS * low-dose SSI ordered * hypoglycemic protocol in place * Diabetic diet ordered * continue Jardiance * continue Lantus 18 units at bedtime * continue to hold Ozempic * mealtime insulin 6 units discontinued on 09/22/202410/01 * No change to current treatment plan (7) Acute kidney injury superimposed on CKD: Code(s): N17.9 - Acute kidney failure, unspecified; N18.9 - Chronic kidney disease, uns pecified Status: Acute Assessment and Plan: * Avoid nephrotoxic drugs. * Monitor antihypertensive drug therapy. * Avoid NSAIDs. * Routinely CMP monitoring GFR. 09/27 * creatinine today was 1.86 which is near his baseline of 1.47-1.53 * avoid nephrotoxic medication * continue to trend as needed 09/28 * creatinine 1.82 * continue to trend (8) COPD (chronic obstructive pulmonary disease): Code(s): J44.9 - Chronic obstructive pulmonary disease, unspecified Status: Acute Assessment and Plan: * not in exacerbation * resume p.r.n. inhalers * oxygen p.r.n. reported patient is supposed to wear 2 L supplemental oxygen at home PRN with activity * will continue with patient's BiPAP at night 09/27 * patient requiring 2 L supplemental oxygen as needed with activity and also will require a BiPAP at night * patient does not have a BiPAP at home and an outpatient sleep study should be set up upon discharge * continue albuterol rescue inhaler 09/28 * no change to current treatment plan Time Spent With Patient Time with patient: 15 - 25 minutes Subjective Date/time seen: 10/01/24 08:40 Interval history: Interval history: this is a 69-year-old male with a significant past medical history of SHEELA, chronic anemia, combined systolic and diastolic congestive heart failure, severe pulmonary hypertension, CVA, bilateral carotid artery stenosis, diabetes mellitus, chronic kidney disease stage IV, depression, COPD, diabetic neuropathy, gout, AFib, coronary artery disease, hyperlipidemia who presented to [facility] for swing bed program and additional rehab On 09/22/2024 after sustaining a fall, having pneumonia, and long hospital stay. Patient returned here from [facility] after being treated for acute respiratory failure and hypoxia secondary to CHF and worsening anasarca which has been complicated by chronic kidney disease. He is requiring oxygen with activity and BiPAP at night. Subjective: patient denies any new complaints today. Labs reviewed. Review of Systems Review of Systems: All systems reviewed & are unremarkable except as noted in HPI and below Exam Narrative: General: In no acute distress, well nourished Cardiac: Normal S1 and S2. RRR, No murmur, gallops or friction rubs, peripheral pulses intact. Respiratory: Lungs clear to auscultation, no adventitious lung sounds, currently on room air Gastrointestinal: soft, distended, non-tender, normoactive bowel sounds. anasarca present : voiding without difficulty clear yellow urine. Neuro: Alert and oriented x4 Objective Data Vital Signs Vital Signs: Vital Signs - 24 hr 09/30/24 09:03 09/30/24 16:00 09/30/24 20:00 Temperature 97.0 F L Pulse Rate 88 70 70 Respiratory Rate 17 17 Blood Pressure 124/81 Pulse Oximetry 96 96 Oxygen Delivery Room Air Room Air Fraction of Inspired Oxygen 36 10/01/24 00:00 Temperature 96.7 F L Pulse Rate 54 L Respiratory Rate 20 Blood Pressure 101/55 L Pulse Oximetry 94 Oxygen Delivery Room Air Fraction of Inspired Oxygen Intake/Output Intake/Output: Intake & Output 09/28/24 09/29/24 09/30/2425 23:59 23:59 23:59 23:59 Intake Total 2340 1260 1940 260 Output Total 5250 7577 4849 1000 Balance 000 -[phone] -[phone] -986 Meds/Results Medications: Active Medications Generic Name Dose Route Start Last Admin Trade Name Freq PRN Reason Stop Dose Admin Acetaminophen 650 mg 09/21/24 14:28 Acetaminophen 325 Mg Tablet PO Q6H PRN Mild Pain (1-3) or Fever Hydrocodone Bitart/Acetaminophen 1 tab 09/21/24 14:27 09/30/24 20:58 Hydrocodone/Acetaminophen (*Crx) 7.5-325 Mg Tablet PO 1 tab Q8H PRN Administration Pain, Moderate Albuterol 2 puff 09/21/24 14:27 Albuterol Sulfate (*Sp) Inhaler INHALATION Q4H PRN Shortness Of Breath Allopurinol 300 mg 09/22/24 09:00 09/30/24 09:02 Allopurinol 300 Mg Tablet PO 300 mg DAILY SHAUNNA Administration Aspirin 81 mg 09/22/24 09:00 09/30/24 09:02 Aspirin 81 Mg Chewable Tablet PO 81 mg DAILY SHAUNNA Administration Atorvastatin Calcium 80 mg 09/21/24 21:00 09/30/24 20:57 Atorvastatin 40 Mg Tablet PO 80 mg HS SHAUNNA Administration Bumetanide 2 mg 09/24/24 09:00 09/30/24 16:51 Bumetanide 1 Mg Tablet PO 2 mg BID SHAUNNA Administration Clotrimazole 1 applic 09/21/24 17:00 09/30/24 16:49 Betamethasone/Clotrimazole Cream 15 Gm Tube TOPICAL 1 applic BID SHAUNNA Administration Dextrose 12.5 gm 09/21/24 14:28 Dextrose 50% 25 Gm/50 Ml Syringe IV PUSH PRN PRN Hypoglycemia Protocol Docusate Sodium 100 mg 09/21/24 14:27 09/29/24 16:55 Docusate Sodium 100 Mg Capsule PO 100 mg DAILY PRN Administration Constipation Empagliflozin 25 mg 09/22/24 09:00 09/30/24 09:03 Empagliflozin 25 Mg Tablet PO 25 mg DAILY SHAUNNA Administration Fluticasone/Umeclidinium/Vilanterol 1 puff 09/22/24 09:00 09/30/24 09:03 Fluticasone/Umeclidin/Vilanter 100-62.5-25 Mcg Ellipta INHALATION 1 puff DAILY SHAUNNA Administration Folic Acid 1 mg 09/22/24 09:00 09/30/24 09:01 Folic Acid 1 Mg Tablet PO 1 mg DAILY SHAUNNA Administration Glucagon 1 mg 09/21/24 14:28 Glucagon For Inj 1 Mg Vial IM PRN PRN Hypoglycemia Protocol Glucose 15 gm 09/21/24 14:28 Glucose Oral Gel 15 Gm Of Glucse In 37.5 Gm Tube PO PRN PRN Hypoglycemia Protocol Hydroxyzine HCl 50 mg 09/21/24 14:27 09/30/24 20:57 Hydroxyzine Hcl 25 Mg Tablet PO 50 mg TID PRN Administration itch Dextrose 1,000 mls @ 100 mls/hr 09/21/24 14:28 Dextrose 5% 1,000 Ml IVPB PRN PRN Hypoglycemia Protocol Insulin Glargine 18 units 09/21/24 18:00 09/30/24 17:01 Insulin Glargine (*Bkc) 1,000 Units/10 Ml Vial SUB-Q 18 units QPM SHAUNNA Administration Insulin Human Lispro 2 - 5 units 09/21/24 17:00 09/30/24 16:54 Insulin Human Lispro (*Bkc) 1,000 Units/10 Ml Vial SUB-Q 3 units TIDWM SHAUNNA Administration Protocol Metoprolol Succinate 25 mg 09/22/24 09:00 09/30/24 09:03 Metoprolol Succinate Ext Rel 25 Mg Tabcr PO 25 mg DAILY SHAUNNA Administration Miscellaneous Information 1 each 09/30/24 00:01 09/30/24 23:44 Pregabalin Needs To Be Renewed Or It Will Automatically Discontinue. XX 10/30/24 00:00 Not Given CLARIFY SHAUNNA Ondansetron HCl 4 mg 09/21/24 14:28 Ondansetron Hcl Odt 4 Mg Tablet PO Q6H PRN Nausea And Vomiting Pantoprazole Sodium 40 mg 09/22/24 09:00 09/30/24 09:02 Pantoprazole 40 Mg Tablet PO 40 mg DAILY SHAUNNA Administration Pregabalin 150 mg 09/21/24 17:00 09/30/24 16:50 Pregabalin (*Crx) 50 Mg Capsule PO 150 mg BID SHAUNNA Administration Sertraline HCl 50 mg 09/22/24 09:00 09/30/24 09:02 Sertraline Hcl 50 Mg Tablet PO 50 mg DAILY SHAUNNA Administration Tolnaftate 1 applic 09/21/24 17:00 09/30/24 16:55 Tolnaftate 1% Powder 45 Gm Btl TOPICAL 1 applic BID SHAUNNA Administration Trazodone HCl 300 mg 09/21/24 21:00 09/30/24 20:57 Trazodone Hcl 50 Mg Tablet PO 300 mg HS SHAUNNA Administration Warfarin Sodium 9 mg 09/30/24 17:00 09/30/24 16:51 Warfarin (*Pbkc) 1 Mg Tablet PO 9 mg DAILY@1700 SHAUNNA Administration Labs Labs: Laboratory Results - last 24 hr 09/30/24 09/30/24 09/30/24 11:51 16:50 20:56 POC Capillary Glucose 178 H 285 H 214 H 10/01/24 08:02 POC Capillary Glucose 106 H Quality VTE Prophylaxis VTE prophylaxis: pharmacologic ordered
--- NOTE | 2024-10-01 08:40 | PM.IMPN ---
Progress Note: A&P Assessment and Plan (1) Physical deconditioning: Code(s): R53.81 - Other malaise Status: Acute Assessment and Plan: recent extended hospitalization will continue with swing bed and physical and occupational therapy up to chair with all meals 2/ continue PT and OT 2 No change to current treatment plan (2) Fall: Onset Date: 02/01/22 Code(s): W19.XXXA - Unspecified fall, initial encounter Status: Acute Assessment and Plan: patient with multiple admissions for unsteady gait and falls PT/OT 2/5 continue PT and OT 2 no change to current treatment plan (3) Right rib fracture: Code(s): S22.31XA - Fracture of one rib, right side, initial encounter for closed fracture Status: Acute Assessment and Plan: HX of 7th and 8th right rib fracture pain control incentive spirometer 2/ continue pain control 09/30 no change to current treatment plan (4) Congestive heart failure: Code(s): I50.9 - Heart failure, unspecified Status: Chronic Assessment and Plan: Resumed Bumex, carvedilol, Jardiance does not appear in exacerbation 2/ appears to be a bit on the skein drier side as his INR keeps increasing even though we are holding his Coumadin, INR is 5.3 today, sodium 148 increased his fluid restriction to 2000 mL per day net negative 2550 on his I&O continue daily weights will hold dose of Bumex tonight and reassess in the morning 09/30 increased fluid restriction to 2500 mL per day sodium 148, patient complaining of thirst continue Bumex (5) Status post mechanical aortic valve replacement: Onset Date: ~2013 Code(s): Z95.2 - Presence of prosthetic heart valve Status: Acute Assessment and Plan: Daily INR keep at 2.0 3.0 adjust Coumadin as needed 7.5 increased to 10mg 2 INR 5.3 today Coumadin on hold Will give 5 mg p.o. vitamin K today will recheck INR in the morning increased might be due to over diuresis 09/30 INR 1.5 today Coumadin was restarted yesterday will increase to 9 mg today will recheck INR tomorrow 10/01 INR 2.1 today Continue coumadin 9 mg tonight Continue to trend INR (6) Diabetes mellitus: Code(s): E11.9 - Type 2 diabetes mellitus without complications Status: Acute Assessment and Plan: 09/27 Blood sugars ranging 158-222 Hgb A1C 7.0 on 08/30/2024 Accu checks AC/HS low-dose SSI ordered hypoglycemic protocol in place Diabetic diet ordered continue Jardiance continue Lantus 18 units at bedtime continue to hold Ozempic mealtime insulin 6 units discontinued on 09/22/202410/01 No change to current treatment plan (7) Acute kidney injury superimposed on CKD: Code(s): N17.9 - Acute kidney failure, unspecified; N18.9 - Chronic kidney disease, unspecified Status: Acute Assessment and Plan: Avoid nephrotoxic drugs. Monitor antihypertensive drug therapy. Avoid NSAIDs. Routinely CMP monitoring GFR. 09/27 creatinine today was 1.86 which is near his baseline of 1.47-1.53 avoid nephrotoxic medication continue to trend as needed 09/28 creatinine 1.82 continue to trend (8) COPD (chronic obstructive pulmonary disease): Code(s): J44.9 - Chronic obstructive pulmonary disease, unspecified Status: Acute Assessment and Plan: not in exacerbation resume p.r.n. inhalers oxygen p.r.n. reported patient is supposed to wear 2 L supplemental oxygen at home PRN with activity will continue with patient's BiPAP at night 09/27 patient requiring 2 L supplemental oxygen as needed with activity and also will require a BiPAP at night patient does not have a BiPAP at home and an outpatient sleep study should be set up upon discharge continue albuterol rescue inhaler 09/28 no change to current treatment plan Time Spent With Patient Time with patient: 15 - 25 minutes Subjective Date/time seen: 10/01/24 08:40 Interval history: Interval history: this is a 69-year-old male with a significant past medical history of SHEELA, chronic anemia, combined systolic and diastolic congestive heart failure, severe pulmonary hypertension, CVA, bilateral carotid artery stenosis, diabetes mellitus, chronic kidney disease stage IV, depression, COPD, diabetic neuropathy, gout, AFib, coronary artery disease, hyperlipidemia who presented to [facility] for swing bed program and additional rehab On 09/22/2024 after sustaining a fall, having pneumonia, and long hospital stay. Patient returned here from [facility] after being treated for acute respiratory failure and hypoxia secondary to CHF and worsening anasarca which has been complicated by chronic kidney disease. He is requiring oxygen with activity and BiPAP at night. Subjective: patient denies any new complaints today. Labs reviewed. Review of Systems Review of Systems: All systems reviewed & are unremarkable except as noted in HPI and below Exam Narrative: General: In no acute distress, well nourished Cardiac: Normal S1 and S2. RRR, No murmur, gallops or friction rubs, peripheral pulses intact. Respiratory: Lungs clear to auscultation, no adventitious lung sounds, currently on room air Gastrointestinal: soft, distended, non-tender, normoactive bowel sounds. anasarca present : voiding without difficulty clear yellow urine. Neuro: Alert and oriented x4 Objective Data Vital Signs Vital Signs: Vital Signs - 24 hr 09/30/24 09:03 09/30/24 16:00 09/30/24 20:00 Temperature 97.0 F L Pulse Rate 88 70 70 Respiratory Rate 17 17 Blood Pressure 124/81 Pulse Oximetry 96 96 Oxygen Delivery Room Air Room Air Fraction of Inspired Oxygen 36 10/01/24 00:00 Temperature 96.7 F L Pulse Rate 54 L Respiratory Rate 20 Blood Pressure 101/55 L Pulse Oximetry 94 Oxygen Delivery Room Air Fraction of Inspired Oxygen Intake/Output Intake/Output: Intake & Output 09/28/24 09/29/24 09/30/24 10/01/24 23:59 23:59 23:59 23:59 Intake Total 2340 1260 1940 260 Output Total 1525 1725 3575 1000 Balance [phone] -[phone] -[phone] -740 Meds/Results Medications: Active Medications Generic Name Dose Route Start Last Admin Trade Name Freq PRN Reason Stop Dose Admin Acetaminophen 650 mg 09/21/24 14:28 Acetaminophen 325 Mg Tablet PO Q6H PRN Mild Pain (1-3) or Fever Hydrocodone Bitart/Acetaminophen 1 tab 09/21/24 14:27 09/30/24 20:58 Hydrocodone/Acetaminophen (*Crx) 7.5-325 Mg Tablet PO 1 tab Q8H PRN Administration Pain, Moderate Albuterol 2 puff 09/21/24 14:27 Albuterol Sulfate (*Sp) Inhaler INHALATION Q4H PRN Shortness Of Breath Allopurinol 300 mg 09/22/24 09:00 09/30/24 09:02 Allopurinol 300 Mg Tablet PO 300 mg DAILY SHAUNNA Administration Aspirin 81 mg 09/22/24 09:00 09/30/24 09:02 Aspirin 81 Mg Chewable Tablet PO 81 mg DAILY SHAUNNA Administration Atorvastatin Calcium 80 mg 09/21/24 21:00 09/30/24 20:57 Atorvastatin 40 Mg Tablet PO 80 mg HS SHAUNNA Administration Bumetanide 2 mg 09/24/24 09:00 09/30/24 16:51 Bumetanide 1 Mg Tablet PO 2 mg BID SHAUNNA Administration Clotrimazole 1 applic 09/21/24 17:00 09/30/24 16:49 Betamethasone/Clotrimazole Cream 15 Gm Tube TOPICAL 1 applic BID SHAUNNA Administration Dextrose 12.5 gm 09/21/24 14:28 Dextrose 50% 25 Gm/50 Ml Syringe IV PUSH PRN PRN Hypoglycemia Protocol Docusate Sodium 100 mg 09/21/24 14:27 09/29/24 16:55 Docusate Sodium 100 Mg Capsule PO 100 mg DAILY PRN Administration Constipation Empagliflozin 25 mg 09/22/24 09:00 09/30/24 09:03 Empagliflozin 25 Mg Tablet PO 25 mg DAILY SHAUNNA Administration Fluticasone/Umeclidinium/Vilanterol 1 puff 09/22/24 09:00 09/30/24 09:03 Fluticasone/Umeclidin/Vilanter 100-62.5-25 Mcg Ellipta INHALATION 1 puff DAILY SHAUNNA Administration Folic Acid 1 mg 09/22/24 09:00 09/30/24 09:01 Folic Acid 1 Mg Tablet PO 1 mg DAILY SHAUNNA Administration Glucagon 1 mg 09/21/24 14:28 Glucagon For Inj 1 Mg Vial IM PRN PRN Hypoglycemia Protocol Glucose 15 gm 09/21/24 14:28 Glucose Oral Gel 15 Gm Of Glucse In 37.5 Gm Tube PO PRN PRN Hypoglycemia Protocol Hydroxyzine HCl 50 mg 09/21/24 14:27 09/30/24 20:57 Hydroxyzine Hcl 25 Mg Tablet PO 50 mg TID PRN Administration itch Dextrose 1,000 mls @ 100 mls/hr 09/21/24 14:28 Dextrose 5% 1,000 Ml IVPB PRN PRN Hypoglycemia Protocol Insulin Glargine 18 units 09/21/24 18:00 09/30/24 17:01 Insulin Glargine (*Bkc) 1,000 Units/10 Ml Vial SUB-Q 18 units QPM SHAUNNA Administration Insulin Human Lispro 2 - 5 units 09/21/24 17:00 09/30/24 16:54 Insulin Human Lispro (*Bkc) 1,000 Units/10 Ml Vial SUB-Q 3 units TIDWM SHAUNNA Administration Protocol Metoprolol Succinate 25 mg 09/22/24 09:00 09/30/24 09:03 Metoprolol Succinate Ext Rel 25 Mg Tabcr PO 25 mg DAILY SHAUNNA Administration Miscellaneous Information 1 each 09/30/24 00:01 09/30/24 23:44 Pregabalin Needs To Be Renewed Or It Will Automatically Discontinue. XX 10/30/24 00:00 Not Given CLARIFY SHAUNNA Ondansetron HCl 4 mg 09/21/24 14:28 Ondansetron Hcl Odt 4 Mg Tablet PO Q6H PRN Nausea And Vomiting Pantoprazole Sodium 40 mg 09/22/24 09:00 09/30/24 09:02 Pantoprazole 40 Mg Tablet PO 40 mg DAILY SHAUNNA Administration Pregabalin 150 mg 09/21/24 17:00 09/30/24 16:50 Pregabalin (*Crx) 50 Mg Capsule PO 150 mg BID [facility] Administration Sertraline HCl 50 mg 09/22/24 09:00 09/30/24 09:02 Sertraline Hcl 50 Mg Tablet PO 50 mg DAILY [facility] Administration Tolnaftate 1 applic 09/21/24 17:00 09/30/24 16:55 Tolnaftate 1% Powder 45 Gm Btl TOPICAL 1 applic BID [facility] Administration Trazodone HCl 300 mg 09/21/24 21:00 09/30/24 20:57 Trazodone Hcl 50 Mg Tablet PO 300 mg HS [facility] Administration Warfarin Sodium 9 mg 09/30/24 17:00 09/30/24 16:51 Warfarin (*Pbkc) 1 Mg Tablet PO 9 mg DAILY@1700 [facility] Administration Labs Labs: Laboratory Results - last 24 hr 09/30/24 09/30/24 09/30/24 11:51 16:50 20:56 POC Capillary Glucose 178 H 285 H 214 H 10/01/24 08:02 POC Capillary Glucose 106 H Quality VTE Prophylaxis VTE prophylaxis: pharmacologic ordered
[2024-10-01 09:25] LABS: INR 2.1; Prothrombin Time 21.3 Seconds (9.50-12.1)
[2024-10-01 09:43] VITALS: PULSE 55
[2024-10-01] MEDS: PREGABALIN (*CRX) 50 MG CAPSULE 150 MG PO ×2 (09:43→17:15)
[2024-10-01] MEDS: FOLIC ACID 1 MG TABLET PO (09:43)
[2024-10-01] MEDS: SERTRALINE HCL 50 MG TABLET PO (09:43)
[2024-10-01] MEDS: EMPAGLIFLOZIN 25 MG TABLET PO (09:43)
[2024-10-01] MEDS: METOPROLOL SUCCINATE EXT REL 25 MG TABCR PO (09:43)
[2024-10-01] MEDS: PANTOPRAZOLE 40 MG TABLET PO (09:44)
[2024-10-01] MEDS: allopurinoL 300 MG TABLET PO (09:44)
[2024-10-01] MEDS: BUMETANIDE 1 MG TABLET 2 MG PO ×2 (09:44→17:15)
[2024-10-01] MEDS: ASPIRIN 81 MG CHEWABLE TABLET PO (09:44)
[2024-10-01] MEDS: FLUTICASONE/UMECLIDIN/VILANTER 100-62.5-25 MCG ELLIPTA 1 PUFF INHALATION (09:44)
[2024-10-01] MEDS: BETAMETHASONE/CLOTRIMAZOLE CREAM 15 GM TUBE 1 APPLIC TOPICAL ×2 (09:44→17:16)
[2024-10-01] MEDS: TOLNAFTATE 1% POWDER 45 GM BTL 1 APPLIC TOPICAL ×2 (09:45→17:16)
[2024-10-01 11:51] LABS: Glucose Point of Care 181 mg/dl (65-105)
[2024-10-01 16:00] VITALS: BP 132/72; PULSE 81; RESP 16; TEMP 35.6; O2SAT 100
[2024-10-01 16:44] LABS: Glucose Point of Care 227 mg/dl (65-105)
[2024-10-01] MEDS: WARFARIN (*PBKC) 1 MG TABLET 9 MG PO (17:13)
[2024-10-01] MEDS: INSULIN GLARGINE (*BKC) 1,000 UNITS/10 ML VIAL 18 UNITS SUB-Q (17:23)
[2024-10-01] MEDS: INSULIN HUMAN LISPRO (*BKC) 1,000 UNITS/10 ML VIAL SUB-Q (17:25)
--- NOTE | 2024-10-01 18:15 | PC.NURSE ---
Patient up in chair watching TV. Patient uses urinal when needed. Alert and able to make needs known. Call light and belongings within reach.
[2024-10-01] MEDS: traZODone HCL 50 MG TABLET 300 MG PO (21:33)
[2024-10-01] MEDS: ATORVASTATIN 40 MG TABLET 80 MG PO (21:33)
[2024-10-01 21:37] LABS: Glucose Point of Care 141 mg/dl (65-105)
[2024-10-01] MEDS: HYDROcodone/acetaminophen (*CRX) 7.5-325 MG TABLET 1 TAB PO (21:38)
[2024-10-02] VITALS: BP 121/76; PULSE 64; RESP 20; TEMP 36.3; O2SAT 92
[2024-10-02 05:30] VITALS: PULSE 64; RESP 18; O2SAT 96
[2024-10-02 07:39] LABS: INR 2.8; Prothrombin Time 28.3 Seconds (9.50-12.1)
[2024-10-02 07:54] LABS: Glucose Point of Care 139 mg/dl (65-105)
[2024-10-02 08:00] VITALS: BP 122/60; PULSE 93; RESP 18; TEMP 35.9; O2SAT 95
[2024-10-02] MEDS: FLUTICASONE/UMECLIDIN/VILANTER 100-62.5-25 MCG ELLIPTA 1 PUFF INHALATION (09:21)
[2024-10-02] MEDS: TOLNAFTATE 1% POWDER 45 GM BTL 1 APPLIC TOPICAL ×2 (09:21→17:46)
[2024-10-02] MEDS: BETAMETHASONE/CLOTRIMAZOLE CREAM 15 GM TUBE 1 APPLIC TOPICAL ×2 (09:21→17:46)
[2024-10-02 09:23] VITALS: PULSE 72
[2024-10-02] MEDS: PREGABALIN (*CRX) 50 MG CAPSULE 150 MG PO ×2 (09:23→17:46)
[2024-10-02] MEDS: METOPROLOL SUCCINATE EXT REL 25 MG TABCR PO (09:23)
[2024-10-02] MEDS: BUMETANIDE 1 MG TABLET 2 MG PO ×2 (09:23→17:45)
[2024-10-02] MEDS: PANTOPRAZOLE 40 MG TABLET PO (09:24)
[2024-10-02] MEDS: FOLIC ACID 1 MG TABLET PO (09:24)
[2024-10-02] MEDS: ASPIRIN 81 MG CHEWABLE TABLET PO (09:24)
[2024-10-02] MEDS: allopurinoL 300 MG TABLET PO (09:24)
[2024-10-02] MEDS: SERTRALINE HCL 50 MG TABLET PO (09:24)
[2024-10-02] MEDS: EMPAGLIFLOZIN 25 MG TABLET PO (09:24)
--- NOTE | 2024-10-02 10:19 | PM.EVENT ---
Event Note Event Note Event Note: INR 2.8, Will keep Coumadin at 9mg today. Recheck INR in a.m.
--- NOTE | 2024-10-02 11:38 | P.PNIM_ITS ---
Progress Note: A&P Assessment and Plan (1) Physical deconditioning: Code(s): R53.81 - Other malaise Status: Acute Assessment and Plan: * recent extended hospitalization * will continue with swing bed and physical and occupational therapy * up to chair with all meals 09/27 * continue PT and OT 09/30 * No change to current treatment plan (2) Fall: Onset Date: 02/01/22 Code(s): W19.XXXA - Unspecified fall, initial encounter Status: Acute Assessment and Plan: patient with multiple admissions for unsteady gait and falls * PT/OT 2 * continue PT and OT 09/30 * no change to current treatment plan (3) Right rib fracture: Code(s): S22.31XA - Fracture of one rib, right side, initial encounter for closed fracture Status: Acute Assessment and Plan: * HX of 7th and 8th right rib fracture * pain control * incentive spirometer 09/27 * continue pain control 09/30 * no change to current treatment plan (4) Congestive heart failure: Code(s): I50.9 - Heart failure, unspecified Status: Chronic Assessment and Plan: * Resumed Bumex, carvedilol, Jardiance * does not appear in exacerbation 2/5 * appears to be a bit on the impregnator and drier side as his INR keeps increasing even though we are holding his Coumadin, INR is 5.3 today, sodium 148 * increased his fluid restriction to 2000 mL per day * net negative 2550 on his I&O * continue daily weights * will hold dose of Bumex tonight and reassess in the morning 09/30 * increased fluid restriction to 2500 mL per day * sodium 148, patient complaining of thirst * continue Bumex 10/02 * Sodium 141, chloride 103 * No change to current treatment plan (5) Status post mechanical aortic valve replacement: Onset Date: ~2013 Code(s): Z95.2 - Presence of prosthetic heart valve Status: Acute Assessment and Plan: * Daily INR * keep at 2.0 3.0 * adjust Coumadin as needed 7.5 increased to 10mg 09/27 * INR 5.3 today * Coumadin on hold * Will give 5 mg p.o. vitamin K today * will recheck INR in the morning * increased might be due to over diuresis 09/30 * INR 1.5 today Coumadin was restarted yesterday * will increase to 9 mg today * will recheck INR tomorrow 10/01 * INR 2.1 today * Continue coumadin 9 mg tonight * Continue to trend INR /10 * INR 2.8 * continue with 9 mg tonight * Continue to trend (6) Diabetes mellitus: Code(s): E11.9 - Type 2 diabetes mellitus without complications Status: Acute Assessment and Plan: 09/27 * Blood sugars ranging 158-222 * Hgb A1C 7.0 on 08/30/2024 * Accu checks AC/HS * low-dose SSI ordered * hypoglycemic protocol in place * Diabetic diet ordered * continue Jardiance * continue Lantus 18 units at bedtime * continue to hold Ozempic * mealtime insulin 6 units discontinued on 09/22/202410/01 * No change to current treatment plan (7) Acute kidney injury superimposed on CKD: Code(s): N17.9 - Acute kidney failure, unspecified; N18.9 - Chronic kidney disease, unspecified Status: Acute Assessment and Plan: * Avoid nephrotoxic drugs. * Monitor antihypertensive drug therapy. * Avoid NSAIDs. * Routinely CMP monitoring GFR. 09/27 * creatinine today was 1.86 which is near his baseline of 1.47-1.53 * avoid nephrotoxic medication * continue to trend as needed 09/28 * creatinine 1.82 * continue to trend 10/02 * For creatinine 1.64 * Near baseline * Continue to trend (8) COPD (chronic obstructive pulmonary disease): Code(s): J44.9 - Chronic obstructive pulmonary disease, unspecified Status: Acute Assessment and Plan: * not in exacerbation * resume p.r.n. inhalers * oxygen p.r.n. reported patient is supposed to wear 2 L supplemental oxygen at home PRN with activity * will continue with patient's BiPAP at night 09/27 * patient requiring 2 L supplemental oxygen as needed with activity and also will require a BiPAP at night * patient does not have a BiPAP at home and an outpatient sleep study should be set up upon discharge * continue albuterol rescue inhaler 09/28 * no change to current treatment plan Time Spent With Patient Time with patient: 25 - 35 minutes Subjective Date/time seen: 10/02/24 11:38 Interval history: Interval history: this is a 69-year-old male with a significant past medical history of SHEELA, chronic anemia, combined systolic and diastolic congestive heart failure, severe pulmonary hypertension, CVA, bilateral carotid artery stenosis, diabetes mellitus, chronic kidney disease stage IV, depression, COPD, diabetic neuropathy, gout, AFib, coronary artery disease, hyperlipidemia who presented to [facility] for swing bed program and additional rehab On 09/22/2024 after sustaining a fall, having pneumonia, and long hospital stay. Patient returned here from [facility] after being treated for acute respiratory failure and hypoxia secondary to CHF and worsening anasarca which has been complicated by chronic kidney disease. He is requiring oxygen with activity and BiPAP at night. Subjective: patient denies any new complaints today. Labs reviewed. Review of Systems Review of Systems: All systems reviewed & are unremarkable except as noted in HPI and below Exam Narrative: General: In no acute distress, well nourished Cardiac: Normal S1 and S2. RRR, No murmur, gallops or friction rubs, peripheral pulses intact. Respiratory: Lungs clear to auscultation, no adventitious lung sounds, currently on room air Gastrointestinal: soft, distended, non-tender, normoactive bowel sounds. anasarca present : voiding without difficulty clear yellow urine. Neuro: Alert and oriented x4 Objective Data Vital Signs Vital Signs: Vital Signs - 24 hr 10/01/24 16:00 10/02/24 00:00 10/02/24 08:00 Temperature 96.1 F L 97.3 F L 96.7 F L Pulse Rate 81 64 93 Respiratory Rate 16 20 18 Blood Pressure 132/72 121/76 122/60 Pulse Oximetry 100 92 95 Oxygen Delivery Room Air Room Air Room Air 10/02/24 09:23 Temperature Pulse Rate 72 Respiratory Rate Blood Pressure Pulse Oximetry Oxygen Delivery Intake/Output Intake/Output: Intake & Output 09/29/24 09/30/24 10/01/24 10/02/24 23:59 23:59 23:59 23:59 Intake Total 1260 1940 1720 800 Output Total 1725 7095 2800 825 [facility] -465 -1635 -1030 -25 Meds/Results Medications: Active Medications Generic Name Dose Route Start Last Admin Trade Name Freq PRN Reason Stop Dose Admin Acetaminophen 650 mg 09/21/24 14:28 Acetaminophen 325 Mg Tablet PO Q6H PRN Mild Pain (1-3) or Fever Hydrocodone Bitart/Acetaminophen 1 tab 09/21/24 14:27 10/01/24 21:38 Hydrocodone/Acetaminophen (*Crx) 7.5-325 Mg Tablet PO 1 tab Q8H PRN Administration Pain, Moderate Albuterol 2 puff 09/21/24 14:27 Albuterol Sulfate (*Sp) Inhaler INHALATION Q4H PRN Shortness Of Breath Allopurinol 300 mg 09/22/24 09:00 10/02/24 09:24 Allopurinol 300 Mg Tablet PO 300 mg DAILY SHAUNNA Administration Aspirin 81 mg 09/22/24 09:00 10/02/24 09:24 Aspirin 81 Mg Chewable Tablet PO 81 mg DAILY SHAUNNA Administration Atorvastatin Calcium 80 mg 09/21/24 21:00 10/01/24 21:33 Atorvastatin 40 Mg Tablet PO 80 mg HS SHAUNNA Administration Bumetanide 2 mg 09/24/24 09:00 10/02/24 09:23 Bumetanide 1 Mg Tablet PO 2 mg BID SHAUNNA Administration Clotrimazole 1 applic 09/21/24 17:00 10/02/24 09:21 Betamethasone/Clotrimazole Cream 15 Gm Tube TOPICAL 1 applic BID SHAUNNA Administration Dextrose 12.5 gm 09/21/24 14:28 Dextrose 50% 25 Gm/50 Ml Syringe IV PUSH PRN PRN Hypoglycemia Protocol Docusate Sodium 100 mg 09/21/24 14:27 09/29/24 16:55 Docusate Sodium 100 Mg Capsule PO 100 mg DAILY PRN Administration Constipation Empagliflozin 25 mg 09/22/24 09:00 10/02/24 09:24 Empagliflozin 25 Mg Tablet PO 25 mg DAILY SHAUNNA Administration Fluticasone/Umeclidinium/Vilanterol 1 puff 09/22/24 09:00 10/02/24 09:21 Fluticasone/Umeclidin/Vilanter 100-62.5-25 Mcg Ellipta INHALATION 1 puff DAILY SHAUNNA Administration Folic Acid 1 mg 09/22/24 09:00 10/02/24 09:24 Folic Acid 1 Mg Tablet PO 1 mg DAILY SHAUNNA Administration Glucagon 1 mg 09/21/24 14:28 Glucagon For Inj 1 Mg Vial IM PRN PRN Hypoglycemia Protocol Glucose 15 gm 09/21/24 14:28 Glucose Oral Gel 15 Gm Of Glucse In 37.5 Gm Tube PO PRN PRN Hypoglycemia Protocol Hydroxyzine HCl 50 mg 09/21/24 14:27 09/30/24 20:57 Hydroxyzine Hcl 25 Mg Tablet PO 50 mg TID PRN Administration itch Dextrose 1,000 mls @ 100 mls/hr 09/21/24 14:28 Dextrose 5% 1,000 Ml IVPB PRN PRN Hypoglycemia Protocol Insulin Glargine 18 units 09/21/24 18:00 10/01/24 17:23 Insulin Glargine (*Bkc) 1,000 Units/10 Ml Vial SUB-Q 18 units QPM SHAUNNA Administration Insulin Human Lispro 2 - 5 units 09/21/24 17:00 10/02/24 08:00 Insulin Human Lispro (*Bkc) 1,000 Units/10 Ml Vial SUB-Q Not Given TIDWM [facility] Protocol Metoprolol Succinate 25 mg 09/22/24 09:00 10/02/24 09:23 Metoprolol Succinate Ext Rel 25 Mg Tabcr PO 25 mg DAILY SHAUNNA Administration Ondansetron HCl 4 mg 09/21/24 14:28 Ondansetron Hcl Odt 4 Mg Tablet PO Q6H PRN Nausea And Vomiting Pantoprazole Sodium 40 mg 09/22/24 09:00 10/02/24 09:24 Pantoprazole 40 Mg Tablet PO 40 mg DAILY SHAUNNA Administration Pregabalin 150 mg 09/21/24 17:00 10/02/24 09:23 Pregabalin (*Crx) 50 Mg Capsule PO 150 mg BID SHAUNNA Administration Sertraline HCl 50 mg 09/22/24 09:00 10/02/24 09:24 Sertraline Hcl 50 Mg Tablet PO 50 mg DAILY SHAUNNA Administration Tolnaftate 1 applic 09/21/24 17:00 10/02/24 09:21 Tolnaftate 1% Powder 45 Gm Btl TOPICAL 1 applic BID SHAUNNA Administration Trazodone HCl 300 mg 09/21/24 21:00 10/01/24 21:33 Trazodone Hcl 50 Mg Tablet PO 300 mg HS SHAUNNA Administration Warfarin Sodium 9 mg 09/30/24 17:00 10/01/24 17:13 Warfarin (*Pbkc) 1 Mg Tablet PO 9 mg DAILY@1700 SHAUNNA Administration Labs Labs: Laboratory Results - last 24 hr 10/01/24 10/01/24 10/01/24 11:46 16:41 21:32 PT INR POC Capillary Glucose 181 H 227 H 141 H 10/02/24 10/02/24 06:30 07:50 PT 28.3 H INR 2.8 POC Capillary Glucose 139 H Quality VTE Prophylaxis VTE prophylaxis: pharmacologic ordered
--- NOTE | 2024-10-02 11:38 | PM.IMPN ---
Progress Note: A&P Assessment and Plan (1) Physical deconditioning: Code(s): R53.81 - Other malaise Status: Acute Assessment and Plan: recent extended hospitalization will continue with swing bed and physical and occupational therapy up to chair with all meals 09/27 continue PT and OT 09/30 No change to current treatment plan (2) Fall: Onset Date: 02/01/22 Code(s): W19.XXXA - Unspecified fall, initial encounter Status: Acute Assessment and Plan: patient with multiple admissions for unsteady gait and falls PT/OT 2/ continue PT and OT 09/30 no change to current treatment plan (3) Right rib fracture: Code(s): S22.31XA - Fracture of one rib, right side, initial encounter for closed fracture Status: Acute Assessment and Plan: HX of 7th and 8th right rib fracture pain control incentive spirometer 09/27 continue pain control 09/30 no change to current treatment plan (4) Congestive heart failure: Code(s): I50.9 - Heart failure, unspecified Status: Chronic Assessment and Plan: Resumed Bumex, carvedilol, Jardiance does not appear in exacerbation 09/27 appears to be a 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 as his INR keeps increasing even though we are holding his Coumadin, INR is 5.3 today, sodium 148 increased his fluid restriction to 2000 mL per day net negative 2550 on his I&O continue daily weights will hold dose of Bumex tonight and reassess in the morning 09/30 increased fluid restriction to 2500 mL per day sodium 148, patient complaining of thirst continue Bumex 10/02 Sodium 141, chloride 103 No change to current treatment plan (5) Status post mechanical aortic valve replacement: Onset Date: ~2013 Code(s): Z95.2 - Presence of prosthetic heart valve Status: Acute Assessment and Plan: Daily INR keep at 2.0 3.0 adjust Coumadin as needed 7.5 increased to 10mg 09/27 INR 5.3 today Coumadin on hold Will give 5 mg p.o. vitamin K today will recheck INR in the morning increased might be due to over diuresis 09/30 INR 1.5 today Coumadin was restarted yesterday will increase to 9 mg today will recheck INR tomorrow 10/01 INR 2.1 today Continue coumadin 9 mg tonight Continue to trend INR 2/10 INR 2.8 continue with 9 mg tonight Continue to trend (6) Diabetes mellitus: Code(s): E11.9 - Type 2 diabetes mellitus without complications Status: Acute Assessment and Plan: 2/ Blood sugars ranging 158-222 Hgb A1C 7.0 on 08/30/2024 Accu checks AC/HS low-dose SSI ordered hypoglycemic protocol in place Diabetic diet ordered continue Jardiance continue Lantus 18 units at bedtime continue to hold Ozempic mealtime insulin 6 units discontinued on 09/22/202410/01 No change to current treatment plan (7) Acute kidney injury superimposed on CKD: Code(s): N17.9 - Acute kidney failure, unspecified; N18.9 - Chronic kidney disease, unspecified Status: Acute Assessment and Plan: Avoid nephrotoxic drugs. Monitor antihypertensive drug therapy. Avoid NSAIDs. Routinely CMP monitoring GFR. 09/27 creatinine today was 1.86 which is near his baseline of 1.47-1.53 avoid nephrotoxic medication continue to trend as needed 09/28 creatinine 1.82 continue to trend 10/02 For creatinine 1.64 Near baseline Continue to trend (8) COPD (chronic obstructive pulmonary disease): Code(s): J44.9 - Chronic obstructive pulmonary disease, unspecified Status: Acute Assessment and Plan: not in exacerbation resume p.r.n. inhalers oxygen p.r.n. reported patient is supposed to wear 2 L supplemental oxygen at home PRN with activity will continue with patient's BiPAP at night 09/27 patient requiring 2 L supplemental oxygen as needed with activity and also will require a BiPAP at night patient does not have a BiPAP at home and an outpatient sleep study should be set up upon discharge continue albuterol rescue inhaler 09/28 no change to current treatment plan Time Spent With Patient Time with patient: 25 - 35 minutes Subjective Date/time seen: 10/02/24 11:38 Interval history: Interval history: this is a 69-year-old male with a significant past medical history of SHEELA, chronic anemia, combined systolic and diastolic congestive heart failure, severe pulmonary hypertension, CVA, bilateral carotid artery stenosis, diabetes mellitus, chronic kidney disease stage IV, depression, COPD, diabetic neuropathy, gout, AFib, coronary artery disease, hyperlipidemia who presented to [facility] for swing bed program and additional rehab On 09/22/2024 after sustaining a fall, having pneumonia, and long hospital stay. Patient returned here from [facility] after being treated for acute respiratory failure and hypoxia secondary to CHF and worsening anasarca which has been complicated by chronic kidney disease. He is requiring oxygen with activity and BiPAP at night. Subjective: patient denies any new complaints today. Labs reviewed. Review of Systems Review of Systems: All systems reviewed & are unremarkable except as noted in HPI and below Exam Narrative: General: In no acute distress, well nourished Cardiac: Normal S1 and S2. RRR, No murmur, gallops or friction rubs, peripheral pulses intact. Respiratory: Lungs clear to auscultation, no adventitious lung sounds, currently on room air Gastrointestinal: soft, distended, non-tender, normoactive bowel sounds. anasarca present : voiding without difficulty clear yellow urine. Neuro: Alert and oriented x4 Objective Data Vital Signs Vital Signs: Vital Signs - 24 hr 10/01/24 16:00 10/02/24 00:00 10/02/24 08:00 Temperature 96.1 F L 97.3 F L 96.7 F L Pulse Rate 81 64 93 Respiratory Rate 16 20 18 Blood Pressure 132/72 121/76 122/60 Pulse Oximetry 100 92 95 Oxygen Delivery Room Air Room Air Room Air 10/02/24 09:23 Temperature Pulse Rate 72 Respiratory Rate Blood Pressure Pulse Oximetry Oxygen Delivery Intake/Output Intake/Output: Intake & Output 09/29/24 09/30/24 10/01/24 10/02/24 23:59 23:59 23:59 23:59 Intake Total 1260 1940 1720 800 Output Total 1725 3575 2750 825 Balance -465 -1635 -1030 -25 Meds/Results Medications: Active Medications Generic Name Dose Route Start Last Admin Trade Name Freq PRN Reason Stop Dose Admin Acetaminophen 650 mg 09/21/24 14:28 Acetaminophen 325 Mg Tablet PO Q6H PRN Mild Pain (1-3) or Fever Hydrocodone Bitart/Acetaminophen 1 tab 09/21/24 14:27 10/01/24 21:38 Hydrocodone/Acetaminophen (*Crx) 7.5-325 Mg Tablet PO 1 tab Q8H PRN Administration Pain, Moderate Albuterol 2 puff 09/21/24 14:27 Albuterol Sulfate (*Sp) Inhaler INHALATION Q4H PRN Shortness Of Breath Allopurinol 300 mg 09/22/24 09:00 10/02/24 09:24 Allopurinol 300 Mg Tablet PO 300 mg DAILY SHAUNNA Administration Aspirin 81 mg 09/22/24 09:00 10/02/24 09:24 Aspirin 81 Mg Chewable Tablet PO 81 mg DAILY SHAUNNA Administration Atorvastatin Calcium 80 mg 09/21/24 21:00 10/01/24 21:33 Atorvastatin 40 Mg Tablet PO 80 mg HS SHAUNNA Administration Bumetanide 2 mg 09/24/24 09:00 10/02/24 09:23 Bumetanide 1 Mg Tablet PO 2 mg BID SHAUNNA Administration Clotrimazole 1 applic 09/21/24 17:00 10/02/24 09:21 Betamethasone/Clotrimazole Cream 15 Gm Tube TOPICAL 1 applic BID SHAUNNA Administration Dextrose 12.5 gm 09/21/24 14:28 Dextrose 50% 25 Gm/50 Ml Syringe IV PUSH PRN PRN Hypoglycemia Protocol Docusate Sodium 100 mg 09/21/24 14:27 09/29/24 16:55 Docusate Sodium 100 Mg Capsule PO 100 mg DAILY PRN Administration Constipation Empagliflozin 25 mg 09/22/24 09:00 10/02/24 09:24 Empagliflozin 25 Mg Tablet PO 25 mg DAILY SHAUNNA Administration Fluticasone/Umeclidinium/Vilanterol 1 puff 09/22/24 09:00 10/02/24 09:21 Fluticasone/Umeclidin/Vilanter 100-62.5-25 Mcg Ellipta INHALATION 1 puff DAILY SHAUNNA Administration Folic Acid 1 mg 09/22/24 09:00 10/02/24 09:24 Folic Acid 1 Mg Tablet PO 1 mg DAILY SHAUNNA Administration Glucagon 1 mg 09/21/24 14:28 Glucagon For Inj 1 Mg Vial IM PRN PRN Hypoglycemia Protocol Glucose 15 gm 09/21/24 14:28 Glucose Oral Gel 15 Gm Of Glucse In 37.5 Gm Tube PO PRN PRN Hypoglycemia Protocol Hydroxyzine HCl 50 mg 09/21/24 14:27 09/30/24 20:57 Hydroxyzine Hcl 25 Mg Tablet PO 50 mg TID PRN Administration itch Dextrose 1,000 mls @ 100 mls/hr 09/21/24 14:28 Dextrose 5% 1,000 Ml IVPB PRN PRN Hypoglycemia Protocol Insulin Glargine 18 units 09/21/24 18:00 10/01/24 17:23 Insulin Glargine (*Bkc) 1,000 Units/10 Ml Vial SUB-Q 18 units QPM SHAUNNA Administration Insulin Human Lispro 2 - 5 units 09/21/24 17:00 10/02/24 08:00 Insulin Human Lispro (*Bkc) 1,000 Units/10 Ml Vial SUB-Q Not Given TIDWM [facility] Protocol Metoprolol Succinate 25 mg 09/22/24 09:00 10/02/24 09:23 Metoprolol Succinate Ext Rel 25 Mg Tabcr PO 25 mg DAILY SHAUNNA Administration Ondansetron HCl 4 mg 09/21/24 14:28 Ondansetron Hcl Odt 4 Mg Tablet PO Q6H PRN Nausea And Vomiting Pantoprazole Sodium 40 mg 09/22/24 09:00 10/02/24 09:24 Pantoprazole 40 Mg Tablet PO 40 mg DAILY SHAUNNA Administration Pregabalin 150 mg 09/21/24 17:00 10/02/24 09:23 Pregabalin (*Crx) 50 Mg Capsule PO 150 mg BID SHAUNNA Administration Sertraline HCl 50 mg 09/22/24 09:00 10/02/24 09:24 Sertraline Hcl 50 Mg Tablet PO 50 mg DAILY [facility] Administration Tolnaftate 1 applic 09/21/24 17:00 10/02/24 09:21 Tolnaftate 1% Powder 45 Gm Btl TOPICAL 1 applic BID [facility] Administration Trazodone HCl 300 mg 09/21/24 21:00 10/01/24 21:33 Trazodone Hcl 50 Mg Tablet PO 300 mg HS SHAUNNA Administration Warfarin Sodium 9 mg 09/30/24 17:00 10/01/24 17:13 Warfarin (*Pbkc) 1 Mg Tablet PO 9 mg DAILY@1700 [facility] Administration Labs Labs: Laboratory Results - last 24 hr 10/01/24 10/01/24 10/01/24 11:46 16:41 21:32 PT INR POC Capillary Glucose 181 H 227 H 141 H 10/02/24 10/02/24 06:30 07:50 PT 28.3 H INR 2.8 POC Capillary Glucose 139 H Quality VTE Prophylaxis VTE prophylaxis: pharmacologic ordered
[2024-10-02 11:47] LABS: Glucose Point of Care 225 mg/dl (65-105)
[2024-10-02] MEDS: INSULIN HUMAN LISPRO (*BKC) 1,000 UNITS/10 ML VIAL SUB-Q (12:01)
[2024-10-02 14:08] LABS: Alanine Aminotransferase 38 U/L (16-63); Albumin Level 2.9 g/dL (3.4-5.0); Alkaline Phosphatase 159 U/L (46-116); Anion Gap 7 mmol/L (4-12); Aspartate Amino Transferase 15 U/L (15-37); Bilirubin,Total 0.9 mg/dL (0.00-1.00); Blood Urea Nitrogen 30 mg/dL (7-18); Calcium 8.4 mg/dL (8.5-10.1); Carbon Dioxide 31 mmol/L (21-32); Chloride 103 mmol/L (98-108); Estimated CRCL calculation 41 ml/min; Estimated Glomerular Filt Rate 42; Glucose 159 mg/dL (70-99); Osmolality Calculated 301 mOsm/kg (285-295); Potassium 3.7 mmol/L (3.5-5.1); Sodium 141 mmol/L (136-145); Total Protein 6.8 g/dL (6.4-8.2)
[2024-10-02 16:00] VITALS: BP 114/70; PULSE 64; RESP 18; TEMP 36.4; O2SAT 95
[2024-10-02 17:12] LABS: Glucose Point of Care 183 mg/dl (65-105)
[2024-10-02] MEDS: WARFARIN (*PBKC) 1 MG TABLET 9 MG PO (17:45)
[2024-10-02] MEDS: INSULIN GLARGINE (*BKC) 1,000 UNITS/10 ML VIAL 18 UNITS SUB-Q (18:25)
[2024-10-02 20:00] VITALS: PULSE 64; RESP 18; O2SAT 95
[2024-10-02] MEDS: traZODone HCL 50 MG TABLET 300 MG PO (21:14)
[2024-10-02] MEDS: hydrOXYzine HCL 25 MG TABLET 50 MG PO (21:14)
[2024-10-02] MEDS: ATORVASTATIN 40 MG TABLET 80 MG PO (21:15)
[2024-10-02] MEDS: DOCUSATE SODIUM 100 MG CAPSULE PO (21:15)
[2024-10-02] MEDS: HYDROcodone/acetaminophen (*CRX) 7.5-325 MG TABLET 1 TAB PO (21:15)
[2024-10-02 21:19] LABS: Glucose Point of Care 255 mg/dl (65-105)
[2024-10-03] VITALS (15 sets, daily range): BP systolic 123–126; BP diastolic 68–84; PULSE 48–81; RESP 16–18; TEMP 36.2–36.6; O2SAT 86–98
[2024-10-03 07:48] LABS: Glucose Point of Care 138 mg/dl (65-105)
--- NOTE | 2024-10-03 08:59 | P.PNIM_ITS ---
Progress Note: A&P Assessment and Plan (1) Physical deconditioning: Code(s): R53.81 - Other malaise Status: Acute Assessment and Plan: * recent extended hospitalization * will continue with swing bed and physical and occupational therapy * up to chair with all meals 09/27 * continue PT and OT 09/30 * No change to current treatment plan 10/03 * continue PT and OT * Care conference today (2) Fall: Onset Date: 02/01/22 Code(s): W19.XXXA - Unspecified fall, initial encounter Status: Acute Assessment and Plan: patient with multiple admissions for unsteady gait and falls * PT/OT 09/27 * continue PT and OT 09/30 * no change to current treatment plan 10/03 * continue fall precautions * Continue PT and OT * Care conference today (3) Right rib fracture: Code(s): S22.31XA - Fracture of one rib, right side, initial encounter for closed fracture Status: Acute Assessment and Plan: * HX of 7th and 8th right rib fracture * pain control * incentive spirometer 09/27 * continue pain control 09/30 * no change to current treatment plan (4) Congestive heart failure: Code(s): I50.9 - Heart failure, unspecified Status: Chronic Assessment and Plan: * Resumed Bumex, carvedilol, Jardiance * does not appear in exacerbation 09/27 * 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 as his INR keeps increasing even though we are holding his Coumadin, INR is 5.3 today, sodium 148 * increased his fluid restriction to 2000 mL per day * net negative 2550 on his I&O * continue daily weights * will hold dose of Bumex tonight and reassess in the morning 09/30 * increased fluid restriction to 2500 mL per day * sodium 148, patient complaining of thirst * continue Bumex 10/02 * Sodium 141, chloride 103 * No change to current treatment plan (5) Status post mechanical aortic valve replacement: Onset Date: ~2013 Code(s): Z95.2 - Presence of prosthetic heart valve Status: Acute Assessment and Plan: * Daily INR * keep at 2.0 3.0 * adjust Coumadin as needed 7.5 increased to 10mg 09/27 * INR 5.3 today * Coumadin on hold * Will give 5 mg p.o. vitamin K today * will recheck INR in the morning * increased might be due to over diuresis 09/30 * INR 1.5 today Coumadin was restarted yesterday * will increase to 9 mg today * will recheck INR tomorrow 10/01 * INR 2.1 today * Continue coumadin 9 mg tonight * Continue to trend INR 10/02 * INR 2.8 * continue with 9 mg tonight * Continue to trend 10/03 * INR 3.7 * Will decrease to 8 mg tonight * Continue to trend * follow platelet count (6) Diabetes mellitus: Code(s): E11.9 - Type 2 diabetes mellitus without complications Status: Acute Assessment and Plan: 09/27 * Blood sugars ranging 158-222 * Hgb A1C 7.0 on 08/30/2024 * Accu checks AC/HS * low-dose SSI ordered * hypoglycemic protocol in place * Diabetic diet ordered * continue Jardiance * continue Lantus 18 units at bedtime * continue to hold Ozempic * mealtime insulin 6 units discontinued on 09/22/202410/01 * No change to current treatment plan (7) Acute kidney injury superimposed on CKD: Code(s): N17.9 - Acute kidney failure, unspecified; N18.9 - Chronic kidney disease, unspecified Status: Acute Assessment and Plan: * Avoid nephrotoxic drugs. * Monitor antihypertensive drug therapy. * Avoid NSAIDs. * Routinely CMP monitoring GFR. 09/27 * creatinine today was 1.86 which is near his baseline of 1.47-1.53 * avoid nephrotoxic medication * continue to trend as needed 09/28 * creatinine 1.82 * continue to trend 10/02 * For creatinine 1.64 * Near baseline * Continue to trend 10/03: * Creatinine 1.70 * Continue to monitor (8) COPD (chronic obstructive pulmonary disease): Code(s): J44.9 - Chronic obstructive pulmonary disease, unspecified Status: Acute Assessment and Plan: * not in exacerbation * resume p.r.n. inhalers * oxygen p.r.n. reported patient is supposed to wear 2 L supplemental oxygen at home PRN with activity * will continue with patient's BiPAP at night 09/27 * patient requiring 2 L supplemental oxygen as needed with activity and also will require a BiPAP at night * patient does not have a BiPAP at home and an outpatient sleep study should be set up upon discharge * continue albuterol rescue inhaler 09/28 * no change to current treatment plan 10/02 * Currently on room air * Continue IS while awake (9) Thrombocytopenia: Code(s): D69.6 - Thrombocytopenia, unspecified Status: Acute Assessment and Plan: 10/02 * Platelet ranging 64>62>57>54>55 * Will check folic acid and Vitamin B12 * Currently on Coumadin for prosthetic heart valve * patient reports he was on folic acid in the past however he was instructed to stop taking this I am assuming when his level was back up. He has been chronically low with his platelet count since May of last year Time Spent With Patient Time with patient: Greater than 35 minutes Subjective Date/time seen: 10/03/24 08:59 Interval history: Interval history: this is a 69-year-old male with a significant past medical history of SHEELA, chronic anemia, combined systolic and diastolic congestive heart failure, severe pulmonary hypertension, CVA, bilateral carotid artery stenosis, diabetes mellitus, chronic kidney disease stage IV, depression, COPD, diabetic neuropathy, gout, AFib, coronary artery disease, hyperlipidemia who presented to [facility] for swing bed program and additional rehab On 09/22/2024 after sustaining a fall, having pneumonia, and long hospital stay. Patient returned here from [facility] after being treated for acute respiratory failure and hypoxia secondary to CHF and worsening anasarca which has been complicated by chronic kidney disease. He is requiring oxygen with activity and BiPAP at night. Subjective: patient denies any new complaints today. Labs reviewed. Review of Systems Review of Systems: All systems reviewed & are unremarkable except as noted in HPI and below Exam Narrative: General: In no acute distress, well nourished Cardiac: Normal S1 and S2. RRR, No murmur, gallops or friction rubs, peripheral pulses intact. Respiratory: Lungs clear to auscultation, no adventitious lung sounds, currently on room air Gastrointestinal: soft, distended, non-tender, normoactive bowel sounds. anasarca present : voiding without difficulty clear yellow urine. Neuro: Alert and oriented x4 Objective Data Vital Signs Vital Signs: Vital Signs - 24 hr 10/02/24 09:23 10/02/24 16:00 10/02/24 20:00 Temperature 97.5 F L Pulse Rate 72 64 64 Respiratory Rate 18 18 Blood Pressure 114/70 Pulse Oximetry 95 95 Oxygen Delivery Room Air Room Air Fraction of Inspired Oxygen 36 10/03/24 00:00 Temperature 97.7 F Pulse Rate 68 Respiratory Rate 17 Blood Pressure 123/73 Pulse Oximetry 94 Oxygen Delivery Room Air Fraction of Inspired Oxygen Intake/Output Intake/Output: Intake & Output 09/30/24 10/01/24 10/02/24 10/03/24 23:59 23:59 23:59 23:59 Intake Total 1940 1720 2400 500 Output Total 3575 2750 2725 1750 Balance -1635 -1030 -325 -1250 Meds/Results Medications: Active Medications Generic Name Dose Route Start Last Admin Trade Name Freq PRN Reason Stop Dose Admin Acetaminophen 650 mg 09/21/24 14:28 Acetaminophen 325 Mg Tablet PO Q6H PRN Mild Pain (1-3) or Fever Hydrocodone Bitart/Acetaminophen 1 tab 09/21/24 14:27 10/02/24 21:15 Hydrocodone/Acetaminophen (*Crx) 7.5-325 Mg Tablet PO 1 tab Q8H PRN Administration Pain, Moderate Albuterol 2 puff 09/21/24 14:27 Albuterol Sulfate (*Sp) Inhaler INHALATION Q4H PRN Shortness Of Breath Allopurinol 300 mg 09/22/24 09:00 10/02/24 09:24 Allopurinol 300 Mg Tablet PO 300 mg DAILY SHAUNNA Administration Aspirin 81 mg 09/22/24 09:00 10/02/24 09:24 Aspirin 81 Mg Chewable Tablet PO 81 mg DAILY SHAUNNA Administration Atorvastatin Calcium 80 mg 09/21/24 21:00 10/02/24 21:15 Atorvastatin 40 Mg Tablet PO 80 mg HS SHAUNNA Administration Bumetanide 2 mg 09/24/24 09:00 10/02/24 17:45 Bumetanide 1 Mg Tablet PO 2 mg BID SHAUNNA Administration Clotrimazole 1 applic 09/21/24 17:00 10/02/24 17:46 Betamethasone/Clotrimazole Cream 15 Gm Tube TOPICAL 1 applic BID SHAUNNA Administration Dextrose 12.5 gm 09/21/24 14:28 Dextrose 50% 25 Gm/50 Ml Syringe IV PUSH PRN PRN Hypoglycemia Protocol Docusate Sodium 100 mg 09/21/24 14:27 10/02/24 21:15 Docusate Sodium 100 Mg Capsule PO 100 mg DAILY PRN Administration Constipation Empagliflozin 25 mg 09/22/24 09:00 10/02/24 09:24 Empagliflozin 25 Mg Tablet PO 25 mg DAILY SHAUNNA Administration Fluticasone/Umeclidinium/Vilanterol 1 puff 09/22/24 09:00 10/02/24 09:21 Fluticasone/Umeclidin/Vilanter 100-62.5-25 Mcg Ellipta INHALATION 1 puff DAILY SHAUNNA Administration Folic Acid 1 mg 09/22/24 09:00 10/02/24 09:24 Folic Acid 1 Mg Tablet PO 1 mg DAILY SHAUNNA Administration Glucagon 1 mg 09/21/24 14:28 Glucagon For Inj 1 Mg Vial IM PRN PRN Hypoglycemia Protocol Glucose 15 gm 09/21/24 14:28 Glucose Oral Gel 15 Gm Of Glucse In 37.5 Gm Tube PO PRN PRN Hypoglycemia Protocol Hydroxyzine HCl 50 mg 09/21/24 14:27 10/02/24 21:14 Hydroxyzine Hcl 25 Mg Tablet PO 50 mg TID PRN Administration itch Dextrose 1,000 mls @ 100 mls/hr 09/21/24 14:28 Dextrose 5% 1,000 Ml IVPB PRN PRN Hypoglycemia Protocol Insulin Glargine 18 units 09/21/24 18:00 10/02/24 18:25 Insulin Glargine (*Bkc) 1,000 Units/10 Ml Vial SUB-Q 18 units QPM SHAUNNA Administration Insulin Human Lispro 2 - 5 units 09/21/24 17:00 10/02/24 17:00 Insulin Human Lispro (*Bkc) 1,000 Units/10 Ml Vial SUB-Q Not Given TIDWM [facility] Protocol Metoprolol Succinate 25 mg 09/22/24 09:00 10/02/24 09:23 Metoprolol Succinate Ext Rel 25 Mg Tabcr PO 25 mg DAILY SHAUNNA Administration Ondansetron HCl 4 mg 09/21/24 14:28 Ondansetron Hcl Odt 4 Mg Tablet PO Q6H PRN Nausea And Vomiting Pantoprazole Sodium 40 mg 09/22/24 09:00 10/02/24 09:24 Pantoprazole 40 Mg Tablet PO 40 mg DAILY SHAUNNA Administration Pregabalin 150 mg 09/21/24 17:00 10/02/24 17:46 Pregabalin (*Crx) 50 Mg Capsule PO 150 mg BID [facility] Administration Sertraline HCl 50 mg 09/22/24 09:00 10/02/24 09:24 Sertraline Hcl 50 Mg Tablet PO 50 mg DAILY [facility] Administration Tolnaftate 1 applic 09/21/24 17:00 10/02/24 17:46 Tolnaftate 1% Powder 45 Gm Btl TOPICAL 1 applic BID [facility] Administration Trazodone HCl 300 mg 09/21/24 21:00 10/02/24 21:14 Trazodone Hcl 50 Mg Tablet PO 300 mg HS [facility] Administration Warfarin Sodium 9 mg 09/30/24 17:00 10/02/24 17:45 Warfarin (*Pbkc) 1 Mg Tablet PO 9 mg DAILY@1700 [facility] Administration Labs Labs: Laboratory Results - last 24 hr 10/02/24 10/02/24 10/02/24 06:29 11:42 17:06 Sodium 141 Potassium 3.7 Chloride 103 Carbon Dioxide 31 Anion Gap 7 BUN 30 H Creatinine 1.64 H Estim Creat Clear Calc 41 Estimated GFR 42 L Glucose 159 H POC Capillary Glucose 225 H 183 H Calculated Osmolality 301 H Calcium 8.4 L Total Bilirubin 0.9 AST 15 ALT 38 Alkaline Phosphatase 159 H Total Protein 6.8 Albumin 2.9 L 10/02/24 10/03/24 21:12 07:46 Sodium Potassium Chloride Carbon Dioxide Anion Gap BUN Creatinine Estim Creat Clear Calc Estimated GFR Glucose POC Capillary Glucose 255 H 138 H Calculated Osmolality Calcium Total Bilirubin AST ALT Alkaline Phosphatase Total Protein Albumin Quality VTE Prophylaxis VTE prophylaxis: pharmacologic ordered
--- NOTE | 2024-10-03 08:59 | PM.IMPN ---
Progress Note: A&P Assessment and Plan (1) Physical deconditioning: Code(s): R53.81 - Other malaise Status: Acute Assessment and Plan: recent extended hospitalization will continue with swing bed and physical and occupational therapy up to chair with all meals 09/27 continue PT and OT 09/30 No change to current treatment plan 10/03 continue PT and OT Care conference today (2) Fall: Onset Date: 02/01/22 Code(s): W19.XXXA - Unspecified fall, initial encounter Status: Acute Assessment and Plan: patient with multiple admissions for unsteady gait and falls PT/OT 2 continue PT and OT 09/30 no change to current treatment plan 10/03 continue fall precautions Continue PT and OT Care conference today (3) Right rib fracture: Code(s): S22.31XA - Fracture of one rib, right side, initial encounter for closed fracture Status: Acute Assessment and Plan: HX of 7th and 8th right rib fracture pain control incentive spirometer 09/27 continue pain control 09/30 no change to current treatment plan (4) Congestive heart failure: Code(s): I50.9 - Heart failure, unspecified Status: Chronic Assessment and Plan: Resumed Bumex, carvedilol, Jardiance does not appear in exacerbation 09/27 appears to be a bit on the core drier side as his INR keeps increasing even though we are holding his Coumadin, INR is 5.3 today, sodium 148 increased his fluid restriction to 2000 mL per day net negative 2550 on his I&O continue daily weights will hold dose of Bumex tonight and reassess in the morning 09/30 increased fluid restriction to 2500 mL per day sodium 148, patient complaining of thirst continue Bumex 10/02 Sodium 141, chloride 103 No change to current treatment plan (5) Status post mechanical aortic valve replacement: Onset Date: ~2013 Code(s): Z95.2 - Presence of prosthetic heart valve Status: Acute Assessment and Plan: Daily INR keep at 2.0 3.0 adjust Coumadin as needed 7.5 increased to 10mg 09/27 INR 5.3 today Coumadin on hold Will give 5 mg p.o. vitamin K today will recheck INR in the morning increased might be due to over diuresis 09/30 INR 1.5 today Coumadin was restarted yesterday will increase to 9 mg today will recheck INR tomorrow 10/01 INR 2.1 today Continue coumadin 9 mg tonight Continue to trend INR 10/02 INR 2.8 continue with 9 mg tonight Continue to trend 10/03 INR 3.7 Will decrease to 8 mg tonight Continue to trend follow platelet count (6) Diabetes mellitus: Code(s): E11.9 - Type 2 diabetes mellitus without complications Status: Acute Assessment and Plan: 09/27 Blood sugars ranging 158-222 Hgb A1C 7.0 on 08/30/2024 Accu checks AC/HS low-dose SSI ordered hypoglycemic protocol in place Diabetic diet ordered continue Jardiance continue Lantus 18 units at bedtime continue to hold Ozempic mealtime insulin 6 units discontinued on 09/22/202410/01 No change to current treatment plan (7) Acute kidney injury superimposed on CKD: Code(s): N17.9 - Acute kidney failure, unspecified; N18.9 - Chronic kidney disease, unspecified Status: Acute Assessment and Plan: Avoid nephrotoxic drugs. Monitor antihypertensive drug therapy. Avoid NSAIDs. Routinely CMP monitoring GFR. 09/27 creatinine today was 1.86 which is near his baseline of 1.47-1.53 avoid nephrotoxic medication continue to trend as needed 09/28 creatinine 1.82 continue to trend 10/02 For creatinine 1.64 Near baseline Continue to trend 10/03: Creatinine 1.70 Continue to monitor (8) COPD (chronic obstructive pulmonary disease): Code(s): J44.9 - Chronic obstructive pulmonary disease, unspecified Status: Acute Assessment and Plan: not in exacerbation resume p.r.n. inhalers oxygen p.r.n. reported patient is supposed to wear 2 L supplemental oxygen at home PRN with activity will continue with patient's BiPAP at night 09/27 patient requiring 2 L supplemental oxygen as needed with activity and also will require a BiPAP at night patient does not have a BiPAP at home and an outpatient sleep study should be set up upon discharge continue albuterol rescue inhaler 09/28 no change to current treatment plan 10/02 Currently on room air Continue IS while awake (9) Thrombocytopenia: Code(s): D69.6 - Thrombocytopenia, unspecified Status: Acute Assessment and Plan: 10/02 Platelet ranging 64>62>57>54>55 Will check folic acid and Vitamin B12 Currently on Coumadin for prosthetic heart valve patient reports he was on folic acid in the past however he was instructed to stop taking this I am assuming when his level was back up. He has been chronically low with his platelet count since May of last year Time Spent With Patient Time with patient: Greater than 35 minutes Subjective Date/time seen: 10/03/24 08:59 Interval history: Interval history: this is a 69-year-old male with a significant past medical history of SHEELA, chronic anemia, combined systolic and diastolic congestive heart failure, severe pulmonary hypertension, CVA, bilateral carotid artery stenosis, diabetes mellitus, chronic kidney disease stage IV, depression, COPD, diabetic neuropathy, gout, AFib, coronary artery disease, hyperlipidemia who presented to [facility] for swing bed program and additional rehab On 09/22/2024 after sustaining a fall, having pneumonia, and long hospital stay. Patient returned here from [facility] after being treated for acute respiratory failure and hypoxia secondary to CHF and worsening anasarca which has been complicated by chronic kidney disease. He is requiring oxygen with activity and BiPAP at night. Subjective: patient denies any new complaints today. Labs reviewed. Review of Systems Review of Systems: All systems reviewed & are unremarkable except as noted in HPI and below Exam Narrative: General: In no acute distress, well nourished Cardiac: Normal S1 and S2. RRR, No murmur, gallops or friction rubs, peripheral pulses intact. Respiratory: Lungs clear to auscultation, no adventitious lung sounds, currently on room air Gastrointestinal: soft, distended, non-tender, normoactive bowel sounds. anasarca present : voiding without difficulty clear yellow urine. Neuro: Alert and oriented x4 Objective Data Vital Signs Vital Signs: Vital Signs - 24 hr 10/02/24 09:23 10/02/24 16:00 10/02/24 20:00 Temperature 97.5 F L Pulse Rate 72 64 64 Respiratory Rate 18 18 Blood Pressure 114/70 Pulse Oximetry 95 95 Oxygen Delivery Room Air Room Air Fraction of Inspired Oxygen 36 10/03/24 00:00 Temperature 97.7 F Pulse Rate 68 Respiratory Rate 17 Blood Pressure 123/73 Pulse Oximetry 94 Oxygen Delivery Room Air Fraction of Inspired Oxygen Intake/Output Intake/Output: Intake & Output 09/30/24 10/01/24 10/02/24 10/03/24 23:59 23:59 23:59 23:59 Intake Total 1940 1720 2400 500 Output Total 6420 8683 6080 1871 [facility] [phone] Meds/Results Medications: Active Medications Generic Name Dose Route Start Last Admin Trade Name Freq PRN Reason Stop Dose Admin Acetaminophen 650 mg 09/21/24 14:28 Acetaminophen 325 Mg Tablet PO Q6H PRN Mild Pain (1-3) or Fever Hydrocodone Bitart/Acetaminophen 1 tab 09/21/24 14:27 10/02/24 21:15 Hydrocodone/Acetaminophen (*Crx) 7.5-325 Mg Tablet PO 1 tab Q8H PRN Administration Pain, Moderate Albuterol 2 puff 09/21/24 14:27 Albuterol Sulfate (*Sp) Inhaler INHALATION Q4H PRN Shortness Of Breath Allopurinol 300 mg 09/22/24 09:00 10/02/24 09:24 Allopurinol 300 Mg Tablet PO 300 mg DAILY SHAUNNA Administration Aspirin 81 mg 09/22/24 09:00 10/02/24 09:24 Aspirin 81 Mg Chewable Tablet PO 81 mg DAILY SHAUNNA Administration Atorvastatin Calcium 80 mg 09/21/24 21:00 10/02/24 21:15 Atorvastatin 40 Mg Tablet PO 80 mg HS SHAUNNA Administration Bumetanide 2 mg 09/24/24 09:00 10/02/24 17:45 Bumetanide 1 Mg Tablet PO 2 mg BID SHAUNNA Administration Clotrimazole 1 applic 09/21/24 17:00 10/02/24 17:46 Betamethasone/Clotrimazole Cream 15 Gm Tube TOPICAL 1 applic BID SHAUNNA Administration Dextrose 12.5 gm 09/21/24 14:28 Dextrose 50% 25 Gm/50 Ml Syringe IV PUSH PRN PRN Hypoglycemia Protocol Docusate Sodium 100 mg 09/21/24 14:27 10/02/24 21:15 Docusate Sodium 100 Mg Capsule PO 100 mg DAILY PRN Administration Constipation Empagliflozin 25 mg 09/22/24 09:00 10/02/24 09:24 Empagliflozin 25 Mg Tablet PO 25 mg DAILY SHAUNNA Administration Fluticasone/Umeclidinium/Vilanterol 1 puff 09/22/24 09:00 10/02/24 09:21 Fluticasone/Umeclidin/Vilanter 100-62.5-25 Mcg Ellipta INHALATION 1 puff DAILY SHAUNNA Administration Folic Acid 1 mg 09/22/24 09:00 10/02/24 09:24 Folic Acid 1 Mg Tablet PO 1 mg DAILY SHAUNNA Administration Glucagon 1 mg 09/21/24 14:28 Glucagon For Inj 1 Mg Vial IM PRN PRN Hypoglycemia Protocol Glucose 15 gm 09/21/24 14:28 Glucose Oral Gel 15 Gm Of Glucse In 37.5 Gm Tube PO PRN PRN Hypoglycemia Protocol Hydroxyzine HCl 50 mg 09/21/24 14:27 10/02/24 21:14 Hydroxyzine Hcl 25 Mg Tablet PO 50 mg TID PRN Administration itch Dextrose 1,000 mls @ 100 mls/hr 09/21/24 14:28 Dextrose 5% 1,000 Ml IVPB PRN PRN Hypoglycemia Protocol Insulin Glargine 18 units 09/21/24 18:00 10/02/24 18:25 Insulin Glargine (*Bkc) 1,000 Units/10 Ml Vial SUB-Q 18 units QPM SHAUNNA Administration Insulin Human Lispro 2 - 5 units 09/21/24 17:00 10/02/24 17:00 Insulin Human Lispro (*Bkc) 1,000 Units/10 Ml Vial SUB-Q Not Given TIDWM SHAUNNA Protocol Metoprolol Succinate 25 mg 09/22/24 09:00 10/02/24 09:23 Metoprolol Succinate Ext Rel 25 Mg Tabcr PO 25 mg DAILY SHAUNNA Administration Ondansetron HCl 4 mg 09/21/24 14:28 Ondansetron Hcl Odt 4 Mg Tablet PO Q6H PRN Nausea And Vomiting Pantoprazole Sodium 40 mg 09/22/24 09:00 10/02/24 09:24 Pantoprazole 40 Mg Tablet PO 40 mg DAILY SHAUNNA Administration Pregabalin 150 mg 09/21/24 17:00 10/02/24 17:46 Pregabalin (*Crx) 50 Mg Capsule PO 150 mg BID SHAUNNA Administration Sertraline HCl 50 mg 09/22/24 09:00 10/02/24 09:24 Sertraline Hcl 50 Mg Tablet PO 50 mg DAILY SHAUNNA Administration Tolnaftate 1 applic 09/21/24 17:00 10/02/24 17:46 Tolnaftate 1% Powder 45 Gm Btl TOPICAL 1 applic BID SHAUNNA Administration Trazodone HCl 300 mg 09/21/24 21:00 10/02/24 21:14 Trazodone Hcl 50 Mg Tablet PO 300 mg HS SHAUNNA Administration Warfarin Sodium 9 mg 09/30/24 17:00 10/02/24 17:45 Warfarin (*Pbkc) 1 Mg Tablet PO 9 mg DAILY@1700 [facility] Administration Labs Labs: Laboratory Results - last 24 hr 10/02/24 10/02/24 10/02/24 06:29 11:42 17:06 Sodium 141 Potassium 3.7 Chloride 103 Carbon Dioxide 31 Anion Gap 7 BUN 30 H Creatinine 1.64 H Estim Creat Clear Calc 41 Estimated GFR 42 L Glucose 159 H POC Capillary Glucose 225 H 183 H Calculated Osmolality 301 H Calcium 8.4 L Total Bilirubin 0.9 AST 15 ALT 38 Alkaline Phosphatase 159 H Total Protein 6.8 Albumin 2.9 L 10/02/24 10/03/24 21:12 07:46 Sodium Potassium Chloride Carbon Dioxide Anion Gap BUN Creatinine Estim Creat Clear Calc Estimated GFR Glucose POC Capillary Glucose 255 H 138 H Calculated Osmolality Calcium Total Bilirubin AST ALT Alkaline Phosphatase Total Protein Albumin Quality VTE Prophylaxis VTE prophylaxis: pharmacologic ordered
[2024-10-03] MEDS: FLUTICASONE/UMECLIDIN/VILANTER 100-62.5-25 MCG ELLIPTA 1 PUFF INHALATION (09:01)
[2024-10-03] MEDS: PREGABALIN (*CRX) 50 MG CAPSULE 150 MG PO ×2 (09:02→17:21)
[2024-10-03] MEDS: SERTRALINE HCL 50 MG TABLET PO (09:03)
[2024-10-03] MEDS: PANTOPRAZOLE 40 MG TABLET PO (09:03)
[2024-10-03] MEDS: FOLIC ACID 1 MG TABLET PO (09:03)
[2024-10-03] MEDS: EMPAGLIFLOZIN 25 MG TABLET PO (09:03)
[2024-10-03] MEDS: METOPROLOL SUCCINATE EXT REL 25 MG TABCR PO (09:03)
[2024-10-03] MEDS: BUMETANIDE 1 MG TABLET 2 MG PO ×2 (09:03→17:22)
[2024-10-03] MEDS: TOLNAFTATE 1% POWDER 45 GM BTL 1 APPLIC TOPICAL ×2 (09:04→17:22)
[2024-10-03] MEDS: BETAMETHASONE/CLOTRIMAZOLE CREAM 15 GM TUBE 1 APPLIC TOPICAL ×2 (09:04→17:22)
[2024-10-03] MEDS: allopurinoL 300 MG TABLET PO (09:04)
[2024-10-03] MEDS: ASPIRIN 81 MG CHEWABLE TABLET PO (09:04)
[2024-10-03 09:21] LABS: Basophils Absolute Auto 0.02 K/mm3 (0.00-0.10); Basophils Percent Auto 0.3 % (0.0-1.0); Eosinophils Absolute Auto 0.23 K/mm3 (0.02-0.50); Eosinophils Percent Auto 3.4 % (1.0-6.0); Hematocrit 37.9 % (37.0-46.0); Hemoglobin 11.1 g/dL (12.4-15.3); Immature Granulocyte Absolute 0.03 K/mm3 (0.00-0.00); Immature Granulocyte Percent A 0.4 % (0.0-0.0); Lymphocytes Absolute Auto 1.35 K/mm3 (1.10-4.50); Lymphocytes Percent Auto 19.9 % (18.0-42.0); Mean Corpuscular HGB Conc 29.3 g/dL (32-36); Mean Corpuscular Hemoglobin 28.2 pg (27.0-31.0); Mean Corpuscular Volume 96.2 fL (78.0-102.0); Monocytes Absolute Auto 0.72 K/mm3 (0.10-0.90); Monocytes Percent Auto 10.6 % (2.0-11.0); Neutrophils Absolute Auto 4.45 K/mm3 (1.70-7.20); Neutrophils Percent Auto 65.4 % (50.0-70.0); Platelet Count Result 57 K/mm3 (150-420); Red Blood Count 3.94 M/mm3 (4.70-6.10); Red Cell Distribution Width 17.1 % (11.6-14.4); White Blood Count 6.8 K/mm3 (4.8-10.8)
[2024-10-03 09:32] LABS: INR 3.7; Prothrombin Time 36.3 Seconds (9.50-12.1)
[2024-10-03 09:42] LABS: Alanine Aminotransferase 38 U/L (16-63); Albumin Level 3.2 g/dL (3.4-5.0); Alkaline Phosphatase 174 U/L (46-116); Anion Gap 8 mmol/L (4-12); Aspartate Amino Transferase 17 U/L (15-37); Bilirubin,Total 0.9 mg/dL (0.00-1.00); Blood Urea Nitrogen 35 mg/dL (7-18); Calcium 8.7 mg/dL (8.5-10.1); Carbon Dioxide 33 mmol/L (21-32); Chloride 102 mmol/L (98-108); Estimated CRCL calculation 40 ml/min; Estimated Glomerular Filt Rate 40; Glucose 189 mg/dL (70-99); Osmolality Calculated 309 mOsm/kg (285-295); Potassium 3.9 mmol/L (3.5-5.1); Sodium 143 mmol/L (136-145); Total Protein 7.6 g/dL (6.4-8.2)
[2024-10-03 11:54] LABS: Folic Acid > 20.0 ng/mL (8.6->20); Vitamin B12 455 pg/mL (193-986)
[2024-10-03 12:08] LABS: Glucose Point of Care 129 mg/dl (65-105)
--- NOTE | 2024-10-03 13:50 | HOMEO2EVAL ---
Evaluation was performed at [facility] [place] Home Oxygen Evaluation RC: Home Oxygen (O2) Evaluation Start: 10/03/24 13:13 Freq: ONCE Status: Active Protocol: RPE Activity Type Activity Date Activity User E-sign Co-sign Detail Recorded Client Recorded Date Recorded By Document 10/03/24 13:23 RES [id number] 10/03/24 13:37 RES Document 10/03/24 13:25 RES [id number] 10/03/24 13:37 RES Document 10/03/24 13:27 RES [id number] 10/03/24 13:49 RES Document 10/03/24 13:26 RES [id number] 10/03/24 13:37 RES Document 10/03/24 13:28 RES [id number] 10/03/24 13:49 RES Document 10/03/24 13:29 RES [id number] 10/03/24 13:49 RES Document 10/03/24 13:30 RES [id number] 10/03/24 13:49 RES Document 10/03/24 13:31 RES [id number] 10/03/24 13:49 RES Document 10/03/24 13:32 RES [id number] 10/03/24 13:49 RES 10/03/24 10/03/24 10/03/24 13:23 13:25 13:27 Home O2 Evaluation [Oxygen] -Test Phase Resting Exercise Exercise -Oxygen Delivery Room Air Room Air Nasal Cannula -Oxygen Flow Rate (L/min) 1 -Fraction of Inspired Oxygen (%) 21 21 24 [Pulse Oximetry] -Pulse Oximetry (90-100 %) 93 87 L 88 L [Pulse Rate] -Pulse Rate (60-100 beats/min) 57 L 68 70 [Evaluation] -Activity Tolerance Good Good Good -Rating of Perceived Dyspnea (PD) +2 Mild, Some +2 Mild, Some +2 Mild, Some Difficulty, Difficulty, Difficulty, Noticeable to Noticeable to Noticeable to the Observer the Observer the Observer -Rate of Perceived Exertion (PE) 9 Very light 9 Very light 9 Very light Query Text:Click the Protocol Button to View the RPE Scale [Exercise] -Ambulation Distance (feet) -Ambulation Distance (meters) [Comments] -Home Oxygen Evaluation Comments sats decreased to 87%, Pt initiated on 1lpm nasal cannula [Charges] -Evaluation Charges O2 Evaluation Charge 10/03/24 10/03/24 10/03/24 13:26 13:28 13:29 Home O2 Evaluation [Oxygen] -Test Phase Exercise Exercise Exercise -Oxygen Delivery Nasal Cannula Nasal Cannula Nasal Cannula -Oxygen Flow Rate (L/min) 1 2 3 -Fraction of Inspired Oxygen (%) 24 28 32 [Pulse Oximetry] -Pulse Oximetry (90-100 %) 90 86 L 90 [Pulse Rate] -Pulse Rate (60-100 beats/min) 69 73 75 [Evaluation] -Activity Tolerance Good Good Good -Rating of Perceived Dyspnea (PD) +2 Mild, Some +2 Mild, Some +2 Mild, Some Difficulty, Difficulty, Difficulty, Noticeable to Noticeable to Noticeable to the Observer the Observer the Observer -Rate of Perceived Exertion (PE) 9 Very light 10 10 Query Text:Click the Protocol Button to View the RPE Scale [Exercise] -Ambulation Distance (feet) -Ambulation Distance (meters) [Comments] -Home Oxygen Evaluation Comments Pt did stop to pt stopped to catch his catch his breath at 34 breath again feet due to SOB due to SOB [Charges] -Evaluation Charges 10/03/24 10/03/24 10/03/24 13:30 13:31 13:32 Home O2 Evaluation [Oxygen] -Test Phase Exercise Exercise Exercise -Oxygen Delivery Nasal Cannula Nasal Cannula Nasal Cannula -Oxygen Flow Rate (L/min) 3 3 3 -Fraction of Inspired Oxygen (%) 32 32 [Pulse Oximetry] -Pulse Oximetry (90-100 %) 93 95 95 [Pulse Rate] -Pulse Rate (60-100 beats/min) 78 77 81 [Evaluation] -Activity Tolerance Good Good Good -Rating of Perceived Dyspnea (PD) +2 Mild, Some +2 Mild, Some +2 Mild, Some Difficulty, Difficulty, Difficulty, Noticeable to Noticeable to Noticeable to the Observer the Observer the Observer -Rate of Perceived Exertion (PE) 10 10 10 Query Text:Click the Protocol Button to View the RPE Scale [Exercise] -Ambulation Distance (feet) 280 -Ambulation Distance (meters) 85.33 [Comments] -Home Oxygen Evaluation Comments Patient ended the 6 min walk on 3lpm, he tolerated 3lpm well. [Charges] -Evaluation Charges
[2024-10-03 16:09] LABS: INR 3.8; Prothrombin Time 36.7 Seconds (9.50-12.1)
[2024-10-03 16:33] LABS: Glucose Point of Care 161 mg/dl (65-105)
[2024-10-03] MEDS: WARFARIN (*PBKC) 2 MG TABLET PO (18:39)
[2024-10-03] MEDS: WARFARIN (*PBKC) 5 MG TABLET PO (18:39)
[2024-10-03] MEDS: traZODone HCL 50 MG TABLET 300 MG PO (20:35)
[2024-10-03] MEDS: HYDROcodone/acetaminophen (*CRX) 7.5-325 MG TABLET 1 TAB PO (20:36)
[2024-10-03] MEDS: DOCUSATE SODIUM 100 MG CAPSULE PO (20:36)
[2024-10-03] MEDS: hydrOXYzine HCL 25 MG TABLET 50 MG PO (20:36)
[2024-10-03] MEDS: ATORVASTATIN 40 MG TABLET 80 MG PO (20:36)
[2024-10-03 20:40] LABS: Glucose Point of Care 170 mg/dl (65-105)
[2024-10-04] VITALS: BP 114/75; PULSE 62; RESP 17; TEMP 36.4; O2SAT 94
[2024-10-04 06:25] LABS: INR 3.5; Prothrombin Time 33.9 Seconds (9.50-12.1)
[2024-10-04 07:45] LABS: Glucose Point of Care 177 mg/dl (65-105)
[2024-10-04 08:00] VITALS: BP 89/58; PULSE 74; RESP 18; TEMP 36.2; O2SAT 96
[2024-10-04 09:28] VITALS: PULSE 74
[2024-10-04] MEDS: METOPROLOL SUCCINATE EXT REL 25 MG TABCR PO (09:28)
[2024-10-04] MEDS: ASPIRIN 81 MG CHEWABLE TABLET PO (09:29)
[2024-10-04] MEDS: SERTRALINE HCL 50 MG TABLET PO (09:29)
[2024-10-04] MEDS: BUMETANIDE 1 MG TABLET 2 MG PO (09:29)
[2024-10-04] MEDS: EMPAGLIFLOZIN 25 MG TABLET PO (09:29)
[2024-10-04] MEDS: PANTOPRAZOLE 40 MG TABLET PO (09:29)
[2024-10-04] MEDS: PREGABALIN (*CRX) 50 MG CAPSULE 150 MG PO (09:30)
[2024-10-04] MEDS: allopurinoL 300 MG TABLET PO (09:30)
[2024-10-04] MEDS: BETAMETHASONE/CLOTRIMAZOLE CREAM 15 GM TUBE 1 APPLIC TOPICAL (09:31)
[2024-10-04] MEDS: FLUTICASONE/UMECLIDIN/VILANTER 100-62.5-25 MCG ELLIPTA 1 PUFF INHALATION (09:31)
[2024-10-04] MEDS: FOLIC ACID 1 MG TABLET PO (09:32)
[2024-10-04] MEDS: TOLNAFTATE 1% POWDER 45 GM BTL 1 APPLIC TOPICAL (09:32)
[2024-10-04 11:44] LABS: Glucose Point of Care 192 mg/dl (65-105)
--- NOTE | 2024-10-04 13:38 | P.DS_ITS ---
DS: Admitting Diagnosis Discharge Date 10/04/2024 Admitting Diagnosis Deconditioned/Rehab DS: Discharge Diagnosis Discharge Diagnosis (1) Physical deconditioning: Code(s): R53.81 - Other malaise Status: Acute Assessment and Plan: * recent extended hospitalization * will continue with swing bed and physical and occupational therapy * up to chair with all meals 09/27 * continue PT and OT 09/30 * No change to current treatment plan 10/03 * continue PT and OT * Care conference today (2) Fall: Onset Date: 02/01/22 Code(s): W19.XXXA - Unspecified fall, initial encounter Status: Acute Assessment and Plan: patient with multiple admissions for unsteady gait and falls * PT/OT 09/27 * continue PT and OT 09/30 * no change to current treatment plan 10/03 * continue fall precautions * Continue PT and OT * Care conference today (3) Right rib fracture: Code(s): S22.31XA - Fracture of one rib, right side, initial encounter for closed fracture Status: Acute Assessment and Plan: * HX of 7th and 8th right rib fracture * pain control * incentive spirometer 09/27 * continue pain control 09/30 * no change to current treatment plan (4) Congestive heart failure: Code(s): I50.9 - Heart failure, unspecified Status: Chronic Assessment and Plan: * Resumed Bumex, carvedilol, Jardiance * does not appear in exacerbation 09/27 * appears to be a bit on the curtain drier side as his INR keeps increasing even though we are holding his Coumadin, INR is 5.3 today, sodium 148 * increased his fluid restriction to 2000 mL per day * net negative 2550 on his I&O * continue daily weights * will hold dose of Bumex tonight and reassess in the morning 09/30 * increased fluid restriction to 2500 mL per day * sodium 148, patient complaining of thirst * continue Bumex 10/02 * Sodium 141, chloride 103 * No change to current treatment plan (5) Status post mechanical aortic valve replacement: Onset Date: ~2013 Code(s): Z95.2 - Presence of prosthetic heart valve Status: Acute Assessment and Plan: * Daily INR * keep at 2.0 3.0 * adjust Coumadin as needed 7.5 increased to 10mg 09/27 * INR 5.3 today * Coumadin on hold * Will give 5 mg p.o. vitamin K today * will recheck INR in the morning * increased might be due to over diuresis 09/30 * INR 1.5 today Coumadin was restarted yesterday * will increase to 9 mg today * will recheck INR tomorrow 10/01 * INR 2.1 today * Continue coumadin 9 mg tonight * Continue to trend INR 10/02 * INR 2.8 * continue with 9 mg tonight * Continue to trend 10/03 * INR 3.7 * Will decrease to 8 mg tonight * Continue to trend * follow platelet count (6) Diabetes mellitus: Code(s): E11.9 - Type 2 diabetes mellitus without complications Status: Acute Assessment and Plan: 09/27 * Blood sugars ranging 158-222 * Hgb A1C 7.0 on 08/30/2024 * Accu checks AC/HS * low-dose SSI ordered * hypoglycemic protocol in place * Diabetic diet ordered * continue Jardiance * continue Lantus 18 units at bedtime * continue to hold Ozempic * mealtime insulin 6 units discontinued on 09/22/202410/01 * No change to current treatment plan (7) Acute kidney injury superimposed on CKD: Code(s): N17.9 - Acute kidney failure, unspecified; N18.9 - Chronic kidney disease, unspecified Status: Acute Assessment and Plan: * Avoid nephrotoxic drugs. * Monitor antihypertensive drug therapy. * Avoid NSAIDs. * Routinely CMP monitoring GFR. 09/27 * creatinine today was 1.86 which is near his baseline of 1.47-1.53 * avoid nephrotoxic medication * continue to trend as needed 09/28 * creatinine 1.82 * continue to trend 10/02 * For creatinine 1.64 * Near baseline * Continue to trend 10/03: * Creatinine 1.70 * Continue to monitor (8) COPD (chronic obstructive pulmonary disease): Code(s): J44.9 - Chronic obstructive pulmonary disease, unspecified Status: Acute Assessment and Plan: * not in exacerbation * resume p.r.n. inhalers * oxygen p.r.n. reported patient is supposed to wear 2 L supplemental oxygen at home PRN with activity * will continue with patient's BiPAP at night 09/27 * patient requiring 2 L supplemental oxygen as needed with activity and also will require a BiPAP at night * patient does not have a BiPAP at home and an outpatient sleep study should be set up upon discharge * continue albuterol rescue inhaler 09/28 * no change to current treatment plan 10/02 * Currently on room air * Continue IS while awake (9) Thrombocytopenia: Code(s): D69.6 - Thrombocytopenia, unspecified Status: Acute Assessment and Plan: 10/02 * Platelet ranging 64>62>57>54>55 * Will check folic acid and Vitamin B12 * Currently on Coumadin for prosthetic heart valve * patient reports he was on folic acid in the past however he was instructed to stop taking this I am assuming when his level was back up. He has been chronically low with his platelet count since May of last year Plan Disposition: Discharged to home with DS: Summary Hospital Course Reason for hospitalization: Deconditioned/Rehab Hospital Course: Patient was a 69-year-old male who had initially presented to the emergency department after he had had a fall a few days prior landing on the sidewalk and injuring his right side. who was initially admitted to [facility] for pain control and difficulty breathing with possible underlying pneumonia. During patient's hospitalization his respiratory status declined and he was needing a tertiary hospital the which time he was transferred over to [facility] on 08/31/2024 for further evaluation and treatment of acute respiratory failure with hypoxia secondary to CHF in worsening anasarca. Patient reports past medical history of diabetes, hypertension, hyperlipidemia, heart valve replacement on Coumadin chronic oxygen of 2 L, and TIA. patient was found to be hypoxic on admission and was requiring supplemental oxygen. patient was then admitted back to [facility] in 2 this swing bed for continued rehabilitation due to his deconditioned state from extended hospitalization. Patient's medications reviewed with updates and resumed he is now requiring BiPAP at night and oxygen p.r.n. with activity. Patient continued to improve strength and endurance while working physical and occupation therapy. During his time he did fluctuate with daily weights which continued to slowing increase his Bumex was increased to BID and his renal function monitored. Continued to adjust his Coumadin while inpatient and he can resume at home from his home meter at time of discharge INR was 3.5. Patient withe overall improvement and able to care for self but will need continued PT/OT outpatient. Encouraged strict diet restrictions and monitor weights. Patient discharged home with family Status at Discharge Functional status at discharge: uses cane/walker Overall status at discharge: patient is progressing back to baseline Time Spent with Patient Time attestation: Total time spent providing and/or coordinating discharge services: Time spent: Greater than 30 minutes Exam Narrative: General: In no acute distress, well nourished Cardiac: Normal S1 and S2. RRR, No murmur, gallops or friction rubs, peripheral pulses intact. Respiratory: Lungs clear to auscultation, no adventitious lung sounds, currently on room air Gastrointestinal: soft, distended, non-tender, normoactive bowel sounds. anasarca present : voiding without difficulty clear yellow urine. Neuro: Alert and oriented x4 DS: Data Data Completed and Pending Labs on day of discharge: Labs from last 24 hours 10/04/24 10/04/24 10/04/24 11:36 07:39 05:21 PT 33.9 H INR 3.5 POC Capillary Glucose 192 H 177 H 10/03/24 10/03/24 10/03/24 20:35 16:32 15:38 PT 36.7 H INR 3.8 POC Capillary Glucose 170 H 161 H Discharge Plan Discharge Attending physician on discharge: Ron Soni Discharging Clinician: Teresa Church Anticipated Discharge Date/Time: 10/04/24 09:05 Patient Disposition: Home, Self-Care Activity: may shower, unlimited and as tolerated Diet: heart healthy and low sodium Discharge Instructions: congestive heart failure * recommend weekly weights * low-sodium diet * elevate lower extremities when at rest * follow-up cardiology outpatient * if you have a significant weight gain such as 10 lb in 1 week or increasing shortness a breath worse than baseline bilateral lower extremity swelling please seek medical attention for further evaluation. aortic valve replacement and use of Coumadin * continue with current Coumadin prescription will need follow-up INR Keep INR between 2.0-3.0 * report any signs or symptoms GI bleeding such as in stool or emesis COPD * continue with recommended 3 L at night with BiPAP and 2 L during the day * continue inhalers as needed * Please request a referral for sleep study from Primary care physician outpatient How can you care for yourself at home? ? Keep track of any new symptoms or changes in your symptoms. ? Rest until you feel better. ? Be safe with medicines. Take your medicines exactly as prescribed. Call your doctor if you think you are having a problem with your medicine. ? Do not drive after taking a prescription pain medicine. ? Ensure to follow-up with primary care physician as indicated and provide updated medication list provided to you at discharge. When should you call for help? Call 911 anytime you think you may need emergency care. For example, call if: ? You passed out (lost consciousness). Call your doctor now or seek immediate medical care if: ? You have new symptoms like fever, difficulty breathing, Chest pain, vomiting, or rash. ? You have new or different pain. ? You are confused and are having trouble thinking clearly. ? Your symptoms are getting worse. Watch closely for changes in your health, and be sure to contact your doctor if: ? You do not get better as expected. Patient Instructions: Antibiotic Form, Warfarin (By mouth), Heart Failure (DC), Using Oxygen at Home (DC), COPD (Chronic Obstructive Pulmonary Disease) (DC), Chronic Lung Disease and Infection Prevention (DC), Pulse Oximetry (DC), Energy Conservation Techniques (DC), Dyspnea Scale and Exercise (DC), Nutrition Guidelines for People with COPD (DC) Patient Language: Turkmen Stand Alone Forms: General Discharge Information Follow-up/Referrals: Megan Infante MD [Primary Care Provider] - 2 weeks Discharge Medications: New warfarin 5 mg tablet 5 mg PO DAILY Qty: 30 0RF warfarin 2 mg tablet 2 mg PO DAILY Qty: 30 0RF Continued insulin glargine [Lantus Solostar U-100 Insulin] 100 unit/mL (3 mL) insulin pen 18 unit SUBCUT QPM insulin lispro 100 unit/mL insulin pen 6 unit SUBCUT .with meals aspirin 81 mg tablet,chewable 81 mg PO DAILY Rx Instructions: Chew 81 mg by mouth daily. clotrimazole-betamethasone 1-0.05 % cream 1 applic topical BID trazodone 100 mg tablet 300 mg PO HS Qty: 90 0RF hydrocodone-acetaminophen 7.5-325 mg Tablet 1 tablet PO Q8H PRN (Reason: Pain, Moderate) Qty: 20 0RF metoprolol succinate 25 mg tablet extended release 24 hr 25 mg PO DAILY Qty: 30 0RF Jardiance 25 mg Tablet 25 mg PO DAILY Qty: 30 0RF allopurinol 300 mg tablet 300 mg PO DAILY sertraline 50 mg tablet 50 mg PO DAILY atorvastatin 80 mg tablet 80 mg PO HS pantoprazole 40 mg tablet,delayed release (DR/EC) 40 mg PO DAILY albuterol sulfate [Ventolin HFA] 90 mcg/actuation Hfa Aerosol Inhaler 2 puff INHALATION Q4H PRN (Reason: Shortness Of Breath) docusate sodium 100 mg Capsule 100 mg PO DAILY PRN (Reason: Constipation) hydroxyzine HCl 50 mg Tablet 50 mg PO TID MDD 3 PRN (Reason: itch) Hubert Mancilla 100-62.5-25 mcg Blister With Device 1 inh INHALATION DAILY nystatin [Nystop] 100,000 unit/gram powder 1 applic TOPICAL BID Patient Comments: Apply to groin, under abd fold folic acid 1 mg tablet 1 mg PO DAILY Rx Instructions: Take 1 mg by mouth daily. Ozempic 1 mg/dose (4 mg/3 mL) pen injector 1 mg subcut WEEKLY pregabalin [Lyrica] 150 mg capsule 150 mg PO BID Ozempic 1 mg/dose (4 mg/3 mL) pen injector 1 mg subcut WEEKLY Changed bumetanide 2 mg tablet 2 mg PO BID Qty: 60 0RF Discontinued warfarin 7.5 mg tablet 7.5 mg PO DAILY@1700 furosemide 40 mg tablet 80 mg PO DAILY glipizide 5 mg tablet extended release 24hr 5 mg PO DAILY carvedilol 6.25 mg tablet 3.125 mg PO Q12H Rx Instructions: Take 12.5 mg by mouth 2 (two) times a day. Date of admission: 09/21/24 11:56 Primary Care Provider: Megan Infante Admitting Provider: Ron Soni Attending physician on admission: Teresa Church Condition: Improved Quality VTE Prophylaxis VTE prophylaxis: pharmacologic ordered -Patient's previous records reviewed on admission -ER notes reviewed in detail on admission -discussed all findings and current treatment plan with patient/Family/POA -Consultations reviewed for recommendations -Patient's disposition for safe discharge discussed with disease case manager rn Dictation performed by [employer] direct speech recognition software, therefore auto fleet maintenance manager variants and typographical errors may occur. Hospitalist [facility] Heart Failure (Exclusion) Patient has history of Heart Transplant or Left Ventricular Assistive Device?: No IF YES, STOP HERE Heart Failure (Qualifier) Patient has current or prior documentation of LVEF less than or equal to 40%, or mod/servere depressed LVSF?: No IF NO, STOP HERE
[2024-10-04 16:00] VITALS: PULSE 76; RESP 20; TEMP 36.2
--- NOTE | 2024-10-04 16:37 | PC.NURSE ---
Discharge instructions reviewed with patient and family. Verbalized understanding. Patient assisted to wheelchair and taken off floor.
--- NOTE | 2024-10-05 14:34 | PC.NURSE ---
Spoke with patient and with daughter, states needs lispro sent to [facility], did get lantus, doesn't have lispro to take with meals, concerned sugars will get too high, to see Dr Infante next week. Message sent to Provider Yanni Church.
== END 2024-10-04 16:20 | disposition home or self-care (01) | DRG 948 ==
PROVIDERS: Nurse Practitioner Acute Care; Admitting Provider Internal Medicine; PCP Family Medicine; Visit Provider Nurse Practitioner Family
DX: R53.81 Other malaise (principal); I13.0 Hypertensive heart and chronic kidney disease with heart failure and stage 1 through stage 4 chronic kidney disease, or unspecified chronic kidney disease; I50.42 Chronic combined systolic (congestive) and diastolic (congestive) heart failure; N18.4 Chronic kidney disease, stage 4 (severe); I48.20 Chronic atrial fibrillation, unspecified; N17.9 Acute kidney failure, unspecified; I25.10 Atherosclerotic heart disease of native coronary artery without angina pectoris; I27.20 Pulmonary hypertension, unspecified; I65.23 Occlusion and stenosis of bilateral carotid arteries; J44.9 Chronic obstructive pulmonary disease, unspecified; D64.9 Anemia, unspecified; D69.6 Thrombocytopenia, unspecified; E11.51 Type 2 diabetes mellitus with diabetic peripheral angiopathy without gangrene; E11.22 Type 2 diabetes mellitus with diabetic chronic kidney disease; E11.40 Type 2 diabetes mellitus with diabetic neuropathy, unspecified; E78.5 Hyperlipidemia, unspecified; M10.9 Gout, unspecified; G47.33 Obstructive sleep apnea (adult) (pediatric); G25.81 Restless legs syndrome; F32.A Depression, unspecified; Z96.642 Presence of left artificial hip joint; Z96.653 Presence of artificial knee joint, bilateral; Z79.01 Long term (current) use of anticoagulants; Z95.2 Presence of prosthetic heart valve; Z99.81 Dependence on supplemental oxygen; Z86.73 Personal history of transient ischemic attack (TIA), and cerebral infarction without residual deficits; Z87.891 Personal history of nicotine dependence; Z79.82 Long term (current) use of aspirin; Z79.4 Long term (current) use of insulin; S22.31XD Fracture of one rib, right side, subsequent encounter for fracture with routine healing
CPT/HCPCS: 36415; 80048; 80053; 82607; 82746; 82948; 83735; 85025; 85027; 85055; 85610; 94618; 97110; 97112; 97161; 97166; 97530; 97535; A9270; J1815

== ENCOUNTER 2024-10-18 13:50 | Outpatient (NON) | payer MEDICARE, SELFPAY ==
[2024-10-18 14:03] LABS: Basophils Absolute Auto 0.04 K/mm3 (0.00-0.10); Basophils Percent Auto 0.4 % (0.0-1.0); Eosinophils Absolute Auto 0.07 K/mm3 (0.02-0.50); Eosinophils Percent Auto 0.6 % (1.0-6.0); Hematocrit 38.7 % (37.0-46.0); Hemoglobin 11.6 g/dL (12.4-15.3); Immature Granulocyte Absolute 0.06 K/mm3 (0.00-0.00); Immature Granulocyte Percent A 0.5 % (0.0-0.0); Lymphocytes Absolute Auto 1.43 K/mm3 (1.10-4.50); Mean Corpuscular Hemoglobin 27.8 pg (27.0-31.0); Mean Corpuscular Volume 92.6 fL (78.0-102.0); Mean Platelet Volume 12.8 fl (8.7-11.0); Monocytes Absolute Auto 1.15 K/mm3 (0.10-0.90); Monocytes Percent Auto 10.4 % (2.0-11.0); Neutrophils Absolute Auto 8.28 K/mm3 (1.70-7.20); Neutrophils Percent Auto 75.1 % (50.0-70.0); Platelet Count Result 187 K/mm3 (150-420); Red Blood Count 4.18 M/mm3 (4.70-6.10); Red Cell Distribution Width 17.4 % (11.6-14.4)
[2024-10-18 14:11] LABS: Anion Gap 9 mmol/L (4-12); Blood Urea Nitrogen 34 mg/dL (7-18); Calcium 8.7 mg/dL (8.5-10.1); Carbon Dioxide 31 mmol/L (21-32); Chloride 100 mmol/L (98-108); Estimated Glomerular Filt Rate 44; Glucose 149 mg/dL (70-99); Osmolality Calculated 300 mOsm/kg (285-295); Sodium 140 mmol/L (136-145)
--- OUTSIDE RECORDS SUMMARY | 2024-10-18 15:46 | XMS_ITS ---
Author Organization [facility] Address [address] [place], [place] [id number] Care Team Providers Care Bleacher [employer] Name Role Phone DonalRONALD baltazar Unavailable [phone] Megan Infante Unavailable Unavailable KARLA GUNN Unavailable [phone] REASON FOR VISIT *General care Medications Medication SIG (Take, Route, Frequency, Duration) Notes Start Date End Date Status Clotrimazole-Bet amethasone 1-0.05 % 1 application Externally Twice a day 07/06/2024 Active dofetilide 0.125 MG Oral Capsule [Tikosyn] ORAL dofetilide 0.125 MG Oral Capsule [Tikosyn]Original Medicationdofetilide 0.125 MG Oral Capsule [Tikosyn] *[facility] for eRx and Interaction Alerts* 09/10/2014 Active warfarin sodium 2 MG Oral Tablet [Coumadin] ORAL warfarin sodium 2 MG Oral Tablet [Coumadin]Original Medicationwarfarin sodium 2 MG Oral Tablet [Coumadin] *Reorder from [employer] for eRx and Interaction Alerts* 09/10/2014 Active glipiZIDE 5 MG Oral Tablet ORAL glipizide 5 MG Oral TabletOriginal Medicationglipizide 5 MG Oral Tablet *Reorder from [facility] for eRx and Interaction Alerts* 09/10/2014 Active Encounters Encounter Location Date Provider Diagnosis [facility] [address], [place] [id number] 07/06/2024 KARLA GUNN Tinea unguium B35.1 ; Pain in right toe(s) M79.674 ; Pain in left toe(s) M79.675 ; Unspecified atherosclerosis of [place] arteries of extremities, bilateral legs I70.203 ; [...] (ICD-10 - M79.675) 07/06/2024 Unspecified atherosclerosis of [place]ed[place] sal[place] arteries of extremities, bilateral legs (ICD-10 - [...] OTC and prescription treatments. Unspecified atherosclerosis of [place]ed[place] sal[place] arteries of extremities, bilateral legs Patient educated [...] * OBIE SIMS RDOB:1955 (68 yo M)Acc No.[id number]:07/06/2024 Patient: OBIE NORWOOD Provider: Crow GUNN :1955 A ge:68 Y S ex:Male Date:07/06/2024 Address:[address] [place] [address] Subjective: * Chief Complaints: * 1 . *General care. * HPI: H PI: General care P atient presents to the office for diabetic foot care. Patient states that their nails are thickened, elongated and painful. Patient states that it is aggravated by shoe gear. Onset is gradual., Patient is taking prescription blood thinners., Date last seen by Dr. Infante was 06/2024., Initials [facility]. * ROS: G eneral / Constitutional: Patient denies w eakness. R espiratory: Patient denies c hronic cough, shortness of breath, sputum production. C ardiovascular: Patient denies c hest pain, history of OK, irregular heartbeat. M usculoskeletal: Patient denies a rthritis, joint stiffness. ? P eripheral Vascular: Patient denies b lanching of skin, cold extremities, decreased sensation in extremities. S kin: Patient complains of f ungal nails, discoloration, dry skin, nail changes. N eurologic: Patient denies d izziness, gait abnormality, headache. * Medical History: * Medications: T aking glipiZIDE 5 MG Oral Tablet ORAL , Notes to Pharmacist: glipizide 5 MG Oral TabletOriginal Medicationglipizide 5 MG Oral Tablet *Reorder from [facility] for eRx and Interaction Alerts*, Taking dofetilide 0.125 MG Oral Capsule [Tikosyn] ORAL , Notes to Pharmacist: dofetilide 0.125 MG Oral Capsule [Tikosyn]Original Medicationdofetilide 0.125 MG Oral Capsule [Tikosyn] *Reorder from [employer] for eRx and Interaction Alerts*, Taking warfarin sodium 2 MG Oral Tablet [Coumadin] ORAL , Notes to Pharmacist: warfarin sodium 2 MG Oral Tablet [Coumadin]Original Medicationwarfarin sodium 2 MG Oral Tablet [Coumadin] *Reorder from [facility] for eRx and Interaction Alerts* Objective: * Vitals: * Examination: P hysical Examination: V ascular: Dorsalis Pedis pulse noted at 1/4 right [...] first metatarsophalangeal joint bilaterally. Assessment: * Assessment: 1. T inea unguium - B35.1 (Primary) 2 . P ain in right toe(s) - M79.674? 3. P ain in left toe(s) - M79.675 4 . U nspecified atherosclerosis of conf[place] sal[place] arteries of extremities, bilateral legs - I70.203 5 . 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 T ype 2 diabetes mellitus with diabetic peripheral angiopathy without gangrene - E11.51 Plan: * Treatment: 2. U nspecified atherosclerosis of [place] arteries of extremities, bilateral legs Notes: Patient educated on risks and aggravating factors of PVD, including conservative treatment options such as a diet and exercise regimen to aid in slowing progression of vascular disease ? 3. X erosis cutis Notes: The patient was educated regarding proper hydration of their feet/ankles and the patient was given several recommendations for proper creams to protect/hydrate and keep the area healthy. Continue with use of lotion to be applied to feet daily. 4. T ype 2 diabetes mellitus with diabetic peripheral angiopathy without gangrene Notes: Patient educated on proper diabetic foot [...] but not limited to nausea, vomiting, fever. 5. O thers Start Clotrimazole-Betamethasone Cream, 1-0.05 %, 1 application, Externally, Twice a day, 1, Refills 2. * Procedure Codes: 1 1721 DEBRIDE NAIL, 6 OR MORE, Modifiers: Q8 * Follow Up: 3 Months * Billing Information: * Visit Code: * Procedure Codes: 24722 DEBRIDE NAIL, 6 OR MORE. Modifiers: Q8 * TAL GRINDER Sign off status: Completed true * Provider: Crow GUNN Date: 1 09/05/2023 Generated for Katiana watson/Kaitlyn/Mindy on: 0 10/18/2024 03:45 PM CRYSTAL GRINDER History and Physical Notes * HPI (History [...]
--- OUTSIDE RECORDS SUMMARY | 2024-10-18 15:46 | XMS_ITS | Encounter Summary ---
Author Organization [facility] Address [address] [place] [address] Care Team Providers Care Show Host Or Hostess Name Role Phone Piyush Pandey MD Unavailable Unavailabl e Megan Infante MD Primary Care Provider [phone] Sharmila Davis APRN, FACE AND FILL PACKER-C Unavailable [phone] Linda Block MD Unavailable [phone] Jeff Grace MD Unavailable Zaki Ortiz MD Unavailable [phone] Romeo-Concetta Pond MD Unavailable [phone] Jeff Grace MD Unavailable Brit Gonzáles MD Unavailable Encounter Details Date Type Department Care Team (Late st Contact Info) Description 01/02/2022 Abstract [facility] [address] [place] [address] Sharmila Davis APRN, FACE AND FILL PACKER-C [address] [facility] [address] [place] [phone] Social History Tobacco Use Types Packs/Day Years [...] Sex Assigned at Male 09/07/2024 10:18 PM MATERIAL COORDINATOR Legal Sex Male 10:01 PM CDT Gender Identity Male 09/07/2024 10:18 PM MATERIAL COORDINATOR Sexual Orientation Straight 09/07/2024 10 :18 PM MATERIAL COORDINATOR Occupation Industry Job Start Date Job End [...] Care Team (Late st Contact Info) Description 10/26/2024 10:15 AM MATERIAL COORDINATOR Telephone [facility] [address] [place] [phone] Brit Gonzáles MD [address] [place] [address] 12/04/2024 10:00 AM CDT Office Visit [facility] [address] [place] [address] Brit Gonzáles MD [address] [place] [address] documented as of this encounter [...] documented as of this encounter Care Teams Show Host Or Hostess Relationship Specialty Start Date End Date Megan Infante MD [address] [place] [address] PCP - General FAMILY PRACTICE 04/06/16 Piyush Pandey MD [place] Paramedic Instructor CARDIOVASCULAR DISEASE 04/06/16 12/28/23 Sharmila Davis, ELECTRONIC PAGE MAKEUP SYSTEM OPERATOR, FACE AND FILL PACKER-C [address] [facility] [address] [place] [address] NURSE PRACTITIONER 01/04/17 04/03/24 Linda Block MD [address] [facility] [address] [place] [address] [place] Paramedic Instructor CLINICAL CARDIAC ELECTROPHYSIOLOGY 02/08/17 04/12/23 Jeff Grace MD [address] [facility] [address] [place] [address] Consulting Physician INTERNAL MEDICINE 02/20/19 3 Zaki Ortiz MD [address] [facility] [address] [place] [address] Consulting Physician PULMONARY DISEASE 07/12/19 Concetta Acevedo MD [address] [place] [address] Surgeon NEUROLOGICAL SURGERY 12/16/22 Jeff Grace MD [address] [place] [address] Consulting Physician INTERNAL MEDICINE 02/11/23 Brit Gonzáles MD [address] [place] [address] Consulting Physician CARDIOVASCULAR DISEASE 12/29/23 documented as of this encounter
--- OUTSIDE RECORDS SUMMARY | 2024-10-18 15:46 | XMS_ITS | Clinical Summary ---
Author Organization Unknown Care Team Providers Care Radiation Safety Officer Name Role Phone MIRIAM MASHA Unavailable Unavailable BEVERLY PHYSICAL THERAPIST, EMILE Unavailabl e Unavailable SATHYA TRAFFIC POLICE OFFICER, MONICA Unavail able Unavailable [facility] REGISTERED NURSE, HILDA Unavailable Unavailable Payers Payer Name Policy Type Policy Number Effective Date Expira tion Date [employer] MEDICARE ADVANTAGE - EPISODIC Problems Condition Name Condition Details Condition Category Status Onset Date Resolution Date Last Treatment Date Treating Clinician Comments CHRONIC COMBINED SYSTOLIC AND DIASTOLIC HRT FAIL Active 08-23 00:00: 00 FRACTURE OF ONE RIB, RIGHT SIDE, SUBS FOR FX W ROUTN HEAL Active 09-22 00:00: 00 TYPE 2 DIABETES MELLITUS W DIABETIC CHRONIC KIDNEY DISEASE Active 08-23 00:00: 00 HYPERTENSIVE 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 Active 08-23 00:00: 00 CHRONIC KIDNEY DISEASE, STAGE 4 (SEVERE) Active 08-23 00:00: 00 ANEMIA IN CHRONIC KIDNEY DISEASE Active 08-23 00:00: 00 TYPE 2 DIABETES W DIABETIC PERIPHERAL ANGIOPATH W/O GANGRENE Active 08-23 00:00: 00 THROMBOCYTOP ENIA, UNSPECIFIED Active 08-23 00:00: 00 CHRONIC RIGHT HEART FAILURE Active 08-23 00:00: 00 CHRONIC OBSTRUCTIVE PULMONARY DISEASE, UNSPECIFIED Active 08-23 00:00: 00 OCCLUSION AND STENOSIS OF BILATERAL CAROTID ARTERIES Active 08-23 00:00: 00 PULMONARY HYPERTENSION , UNSPECIFIED Active 08-23 00:00: 00 UNSPECIFIED ATRIAL FIBRILLATION Active 08-23 00:00: 00 ATHSCL HEART DISEASE OF [place] CORONARY ARTERY W/O ANG PCTRS Active 08-23 00:00: 00 TYPE 2 DIABETES MELLITUS WITH DIABETIC NEUROPATHY, UNSP Active 08-23 00:00: 00 DEPRESSION, UNSPECIFIED Active 08-23 00:00: 00 GOUT, UNSPECIFIED Active 08-23 00:00: 00 HYPERLIPIDEM IA, UNSPECIFIED Active 08-23 00:00: 00 OBSTRUCTIVE SLEEP APNEA (ADULT) (PEDIATRIC) Active 08-23 00:00: 00 RESTLESS LEGS SYNDROME Active 08-23 00:00: 00 ENCOUNTER FOR THERAPEUTIC DRUG LEVEL MONITORING Active 08-23 00:00: 00 PRESENCE OF PROSTHETIC HEART VALVE Active 08-23 00:00: 00 PERSONAL HISTORY OF NICOTINE DEPENDENCE Active 08-23 00:00: 00 PRSNL HX OF TIA (TIA), AND CEREB INFRC W/O RESID DEFICITS Active 08-23 00:00: 00 DEPENDENCE ON SUPPLEMENTAL OXYGEN Active 08-23 00:00: 00 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 Active 08-23 00:00: 00 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 Ordering Clinician Indication Dosage Frequency Signature (SIG) Comments Components allopurinol 300 mg tablet 03-01 00:00: 00 08-17 23:59 :00 No [id number] GOUT 1 tablet ONCE DAILY 1 tablet ONCE DAILY (route: oral) Med Classific ation: Gout and Hyperuric emia Therapy aspirin 81 mg tablet,brandon yed release 03-01 00:00: 00 08-17 23:59 :00 No [id number] CAD 1 tablet ONCE DAILY 1 tablet ONCE DAILY (route: oral) Med Classific ation: Hematolog ical Agents atorvastati n 80 mg tablet 03-01 00:00: 00 08-17 23:59 :00 No [id number] HLD 1 tablet ONCE DAILY 1 tablet ONCE DAILY (route: oral) Med Classific ation: Cardiovas cular Therapy Agents carvedilol 3.125 mg tablet 03-01 00:00: 00 08-17 23:59 :00 No [id number] CAD 1 tablet TWICE DAILY 1 tablet TWICE DAILY (route: oral) Med Classific ation: Cardiovas cular Therapy Agents dicloxacill in 500 mg capsule 02-24 00:00: 00 03-05 23:59 :00 No [id number] CELLULITIS 1 capsule 4 TIMES DAILY 1 capsule 4 TIMES DAILY (route: oral) Med Classific ation: Anti-Infe ctive Agents docusate sodium 100 mg capsule 03-01 00:00: 00 08-17 23:59 :00 No [id number] CONSTIPATIO N 1 capsule TWICE DAILY 1 capsule TWICE DAILY (route: oral) Med Classific ation: Gastroint estinal Therapy Agents Entresto 24 mg-26 mg tablet 03-01 00:00: 00 08-17 23:59 :00 No [id number] CHF 1 tablet TWICE DAILY 1 tablet TWICE DAILY (route: oral) Med Classific ation: Cardiovas cular Therapy Agents ferrous sulfate 325 mg (65 mg iron) tablet 03-01 00:00: 00 08-17 23:59 :00 No [id number] ANEMIA 1 tablet ONCE DAILY 1 tablet ONCE DAILY (route: oral) Med Classific ation: Electroly te Balance-N utritiona l Products furosemide 40 mg tablet 03-01 00:00: 00 08-17 23:59 :00 No [id number] CHF 1 tablet TWICE DAILY 1 tablet TWICE DAILY (route: oral) Med Classific ation: Cardiovas cular Therapy Agents gabapentin 400 mg capsule 03-01 00:00: 00 08-17 23:59 :00 No [id number] NEUROPATHY 1 capsule TWICE DAILY 1 capsule TWICE DAILY (route: oral) Med Classific ation: Central Nervous System Agents glipizide 5 mg tablet 03-01 00:00: 08-17 23:59 :00 No [id number] DM 1 tablet ONCE DAILY 1 tablet ONCE DAILY (route: oral) Med Classific ation: Endocrine hydrocodone 7.5 mg-acetamin ophen 325 mg tablet 03-01 00:00: 00 08-17 23:59 :00 No [id number] PAIN 1 tablet 3 TIMES DAILY 1 tablet 3 TIMES DAILY (route: oral) Med Classific ation: Analgesic , Anti-infl ammatory or Antipyret ic hydroxyzine HCl 50 mg tablet 03-01 00:00: 00 08-17 23:59 :00 No [id number] ITCHING 2 tablet 3 TIMES DAILY 2 tablet 3 TIMES DAILY (route: oral) Med Classific ation: Central Nervous System Agents Jardiance 25 mg tablet 03-01 00:00: 00 08-17 23:59 :00 No [id number] DM 1 tablet ONCE DAILY 1 tablet ONCE DAILY (route: oral) Med Classific ation: Endocrine OXYGEN 03-01 00:00: 08-17 23:59 :00 No [id number] HYPOXIA 2-3 Liter NEEDED 2-3 Liter NEEDED (route: Oxygen) Med Classific ation: Medical Oxygen Ozempic 1 mg/dose (4 mg/3 mL) subcutaneou s pen injector 03-01 00:00: 08-17 23:59 :00 No [id number] DM 1 mg WEEKLY 1 mg WEEKLY (route: subcutaneo us) Med Classific ation: Endocrine pantoprazol e 40 mg tablet,brandon yed release 03-01 00:00: 00 08-17 23:59 :00 No [id number] GERD 1 tablet ONCE DAILY 1 tablet ONCE DAILY (route: oral) Med Classific ation: Gastroint estinal Therapy Agents potassium chloride ER 20 mEq tablet,exte nded release 03-01 00:00: 00 08-17 23:59 :00 No [id number] HYPOKALEMIA 1 tablet ONCE DAILY 1 tablet ONCE DAILY (route: oral) Med Classific ation: Electroly te Balance-N utritiona l Products ropinirole 2 mg tablet 03-01 00:00: 00 08-17 23:59 :00 No [id number] RLS 2 tablet AT BEDTIME 2 tablet AT BEDTIME (route: oral) Med Classific ation: Central Nervous System Agents sertraline 50 mg tablet 03-01 00:00: 00 08-17 23:59 :00 No [id number] DEPRESSION 1 tablet ONCE DAILY 1 tablet ONCE DAILY (route: oral) Med Classific ation: Central Nervous System Agents spironolact one 25 mg tablet 03-01 00:00: 00 08-17 23:59 :00 No [id number] CH 1 tablet ONCE DAILY 1 tablet ONCE DAILY (route: oral) Med Classific ation: Cardiovas cular Therapy Agents tamsulosin 0.4 mg capsule 03-01 00:00: 00 08-17 23:59 :00 No [id number] URINARY RETENTION 1 capsule ONCE DAILY 1 capsule ONCE DAILY (route: oral) Med Classific ation: Genitouri nary Therapy trazodone 150 mg tablet 03-01 00:00: 00 08-17 23:59 :00 No [id number] INSOMNIA 1 tablet AT BEDTIME 1 tablet AT BEDTIME (route: oral) Med Classific ation: Central Nervous System Agents Tresiba FlexTouch U-200 insulin 200 unit/mL (3 mL) subcutane s pen 03-01 00:00: 00 08-17 23:59 :00 No [id number] DM 30 unit ONCE DAILY 30 unit ONCE DAILY (route: subcutaneo us) Med Classific ation: Endocrine Ventolin HFA 90 mcg/actuati on aerosol inhaler 03-01 00:00: 00 08-17 23:59 :00 No [id number] WHEEZING/SH ORTNESS OF BREATH 1 puff EVERY 4 HOURS 1 puff EVERY 4 HOURS (route: inhalation ) Med Classific ation: Respirato ry Therapy Agents warfarin 1 mg tablet 03-01 00:00: 00 08-17 23:59 :00 No [id number] AFIB 1 tablet AT BEDTIME 1 tablet AT BEDTIME (route: oral) Med Classific ation: Hematolog ical Agents warfarin 5 mg tablet 03-01 00:00: 00 08-17 23:59 :00 No [id number] AFIB 1 tablet AT BEDTIME 1 tablet AT BEDTIME (route: oral) Med Classific ation: Hematolog ical Agents albuterol sulfate HFA 90 mcg/actuati on aerosol inhaler 2023-08 00:00: 00 09-27 23:59 :00 No [id number] WHEEZING 2 puff EVERY 4 HOURS 2 puff EVERY 4 HOURS (route: inhalation ) Med Classific ation: Respirato ry Therapy Agents allopurinol 300 mg tablet 2023-08 00:00: 00 09-27 23:59 :00 No [id number] GOUT 1 tablet DAILY 1 tablet DAILY (route: oral) Med Classific ation: Gout and Hyperuric emia Therapy aspirin 81 mg tablet,brandon yed release 2023-08 00:00: 00 09-27 23:59 :00 No [id number] BLOOD CLOT PREVENTION 1 tablet DAILY 1 tablet DAILY (route: oral) Med Classific ation: Hematolog ical Agents carvedilol 3.125 mg tablet 2023-08 00:00: 00 09-27 23:59 :00 No [id number] HTN 1 tablet 2 TIMES DAILY 1 tablet 2 TIMES DAILY (route: oral) Med Classific ation: Cardiovas cular Therapy Agents Colace 100 mg capsule 2023-08 00:00: 00 09-27 23:59 :00 No [id number] CONSTIPATIO N 1 capsule DAILY 1 capsule DAILY (route: oral) Med Classific ation: Gastroint estinal Therapy Agents cyclobenzap rine 10 mg tablet 2023-08 00:00: 00 09-27 23:59 :00 No [id number] BPH 1 tablet DAILY 1 tablet DAILY (route: oral) Med Classific ation: Locomotor System Entresto 24 mg-26 mg tablet 2023-08 00:00: 00 09-27 23:59 :00 No [id number] HF 1 tablet 2 TIMES DAILY 1 tablet 2 TIMES DAILY (route: oral) Med Classific ation: Cardiovas cular Therapy Agents folic acid 1 mg tablet 2023-08 00:00: 00 09-27 23:59 :00 No [id number] SUPPLEMENT 1 tablet DAILY 1 tablet DAILY (route: oral) Med Classific ation: Electroly te Balance-N utritiona l Products gabapentin 400 mg capsule 2023-08 00:00: 00 09-27 23:59 :00 No [id number] NEUROPATHY 1 capsule 2 TIMES DAILY 1 capsule 2 TIMES DAILY (route: oral) Med Classific ation: Central Nervous System Agents glipizide 5 mg tablet 2023-08 00:00: 00 09-27 23:59 :00 No [id number] DIABETES 1 tablet DAILY 1 tablet DAILY (route: oral) Med Classific ation: Endocrine hydrocodone 10 mg-acetamin ophen 325 mg tablet 2023-08 00:00: 00 09-27 23:59 :00 No [id number] PAIN 1 tablet EVERY 6 HOURS 1 tablet EVERY 6 HOURS (route: oral) Med Classific ation: Analgesic , Anti-infl ammatory or Antipyret ic hydroxyzine HCl 50 mg tablet 2023-08 00:00: 00 09-27 23:59 :00 No [id number] ITCHING 2 tablet 3 TIMES DAILY 2 tablet 3 TIMES DAILY (route: oral) Med Classific ation: Central Nervous System Agents Jardiance 25 mg tablet 2023-08 00:00: 00 09-27 23:59 :00 No [id number] DIABETES 1 tablet DAILY 1 tablet DAILY (route: oral) Med Classific ation: Endocrine Lasix 80 mg tablet 2023-08 00:00: 00 09-27 23:59 :00 No [id number] FLUID RETENTION 1 tablet DAILY 1 tablet DAILY (route: oral) Med Classific ation: Cardiovas cular Therapy Agents oxygen gas for inhalation 2023-08 00:00: 08-21 23:59 :00 No [id number] OXYGENATION 2 Liter O2 - PRN 2 Liter O2 - PRN (route: inhalation ) Med Classific ation: Medical Supplies and Durable Medical Equipment (DME) Ozempic 1 mg/dose (4 mg/3 mL) subcutaneou s pen injector 2023-08 00:00: 00 09-27 23:59 :00 No [id number] DIABETES 1 mg WEEKLY 1 mg WEEKLY (route: subcutaneo us) Med Classific ation: Endocrine pregabalin 150 mg capsule 2023-08 00:00: 00 09-27 23:59 :00 No [id number] MUSCLE PAIN 1 capsule 2 TIMES DAILY 1 capsule 2 TIMES DAILY (route: oral) Med Classific ation: Central Nervous System Agents sertraline 50 mg tablet 2023-08 00:00: 00 09-27 23:59 :00 No [id number] DEPRESSION 1 tablet DAILY 1 tablet DAILY (route: oral) Med Classific ation: Central Nervous System Agents trazodone 150 mg tablet 2023-08 00:00: 00 09-27 23:59 :00 No [id number] DEPRESSION 2 tablet DAILY 2 tablet DAILY (route: oral) Med Classific ation: Central Nervous System Agents Trelegy Ellipta 100 mcg-62.5 mcg-25 mcg powder for inhalation 2023-08 00:00: 00 09-27 23:59 :00 No [id number] SHORTNESS OF BREATH 1 inhalat ion DAILY 1 inhalation DAILY (route: inhalation ) Med Classific ation: Respirato ry Therapy Agents warfarin 4 mg tablet 2023-08 00:00: 00 09-27 23:59 :00 No [id number] BLOOD CLOT PREVENTION 1 tablet DAILY 1 tablet DAILY (route: oral) Med Classific ation: Hematolog ical Agents oxygen gas for inhalation 2023-08 00:00: 00 09-27 23:59 :00 No [id number] OXYGENATION 2 Liter O2 - PRN 2 Liter O2 - PRN (route: inhalation ) Alternate Route: O2 - NASAL CANNULA. Med Classific ation: Medical Supplies and Durable Medical Equipment (DME) albuterol sulfate HFA 90 mcg/actuati on aerosol inhaler 10-05 00:00: 00 Yes [id number] SOB 2 puff EVERY 4 HOURS 2 puff EVERY 4 HOURS (route: inhalation ) Med Classific ation: Respirato ry Therapy Agents allopurinol 300 mg tablet 10-05 00:00: 00 Yes [id number] GOUT 1 tablet ONCE DAILY 1 tablet ONCE DAILY (route: oral) Med Classific ation: Gout and Hyperuric emia Therapy aspirin 81 mg chewable tablet 10-05 00:00: 00 Yes [id number] PREVENT CLOTS 1 tablet ONCE DAILY 1 tablet ONCE DAILY (route: oral) Med Classific ation: Hematolog ical Agents atorvastati n 80 mg tablet 10-05 00:00: 00 Yes [id number] HIGH CHOLESTEROL 1 tablet ONCE DAILY 1 tablet ONCE DAILY (route: oral) Med Classific ation: Cardiovas cular Therapy Agents docusate sodium 100 mg tablet 10-05 00:00: 00 Yes [id number] CONSTIPATIO N 1 tablet ONCE DAILY 1 tablet ONCE DAILY (route: oral) Med Classific ation: Gastroint estinal Therapy Agents folic acid 1 mg tablet 10-05 00:00: 00 Yes [id number] SUPPLEMENT 1 tablet ONCE DAILY 1 tablet ONCE DAILY (route: oral) Med Classific ation: Electroly te Balance-N utritiona l Products hydrocodone 7.5 mg-acetamin ophen 325 mg tablet 10-05 00:00: 00 Yes [id number] PAIN 1 tablet EVERY 8 HOURS 1 tablet EVERY 8 HOURS (route: oral) Med Classific ation: Analgesic , Anti-infl ammatory or Antipyret ic hydroxyzine HCl 50 mg tablet 10-05 00:00: 00 Yes [id number] ITCHING 1 tablet 3 TIMES DAILY 1 tablet 3 TIMES DAILY (route: oral) Med Classific ation: Central Nervous System Agents insulin degludec (U-100) 100 unit/mL subcutaneou s solution 10-05 00:00: 00 Yes [id number] DIABETES 30 unit ONCE DAILY 30 unit ONCE DAILY (route: subcutaneo us) Med Classific ation: Endocrine Jardiance 25 mg tablet 10-05 00:00: 00 Yes [id number] DIABETES 1 tablet ONCE DAILY 1 tablet ONCE DAILY (route: oral) Med Classific ation: Endocrine metoprolol succinate ER 25 mg tablet,exte nded release 24 hr 10-05 00:00: 00 Yes [id number] HYPERTENSIO N 1 tablet ONCE DAILY 1 tablet ONCE DAILY (route: oral) Med Classific ation: Cardiovas cular Therapy Agents nystatin 100,000 unit/gram topical powder 10-05 00:00: 00 Yes [id number] RASH Per instruc tions ONCE DAILY Per instructio ns ONCE DAILY (route: topical) Med Classific ation: Dermatolo gical pantoprazol e 40 mg tablet,brandon yed release 10-05 00:00: 00 Yes [id number] UPSET STOMACH 1 tablet ONCE DAILY 1 tablet ONCE DAILY (route: oral) Med Classific ation: Gastroint estinal Therapy Agents pregabalin 150 mg capsule 10-05 00:00: 00 Yes [id number] PAIN 1 capsule TWICE DAILY 1 capsule TWICE DAILY (route: oral) Med Classific ation: Central Nervous System Agents sertraline 50 mg tablet 10-05 00:00: 00 Yes [id number] DEPRESSION 1 tablet ONCE DAILY 1 tablet ONCE DAILY (route: oral) Med Classific ation: Central Nervous System Agents trazodone 100 mg tablet 10-05 00:00: 00 Yes [id number] SLEEP 3 tablet ONCE DAILY 3 tablet ONCE DAILY (route: oral) Med Classific ation: Central Nervous System Agents Trelegy Ellipta 100 mcg-62.5 mcg-25 mcg powder for inhalation 10-05 00:00: 00 Yes [id number] COPD 1 inhalat ion ONCE DAILY 1 inhalation ONCE DAILY (route: inhalation ) Med Classific ation: Respirato ry Therapy Agents warfarin 2 mg tablet 10-05 00:00: 00 10-11 23:59 :00 No [id number] PREVENT CLOTS 1 tablet ONCE DAILY 1 tablet ONCE DAILY (route: oral) Med Classific ation: Hematolog ical Agents oxygen gas for inhalation 10-05 00:00: 00 Yes [id number] COPD 2 Liter INTERMITTE NT 2 Liter INTERMITTE NT (route: inhalation ) Med Classific ation: Medical Supplies and Durable Medical Equipment (DME) insulin lispro (U-100) 100 unit/mL subcutaneou s pen 10-11 00:00: 00 Yes [id number] DIABETES Per instruc tions DIRECTED Per instructio ns DIRECTED (route: subcutaneo us) Med Classific ation: Endocrine warfarin 5 mg tablet 10-11 00:00: 00 Yes [id number] PREVENT CLOTS 1 tablet ONCE DAILY 1 tablet ONCE DAILY (route: oral) Med Classific ation: Hematolog ical Agents Immunizations Ordered Immunization Name Filled Immunization Name Date Status Comments Refusal Reason INFLUENZA, TIV (INACTIVATED) 2024-10-06 00:00:00 PNEUMOCOCCAL (PPV), PPV 2024-10-06 00:00:00 Vital Signs Vital Name Observation Time Observation Value Commen ts Temperature 2024-10-16 14:02:00.000 97.8 [degF] Temperature 2024-10-12 10:25:00.000 97.5 [degF] Temperature 2024-10-11 14:42:00.000 97.2 [degF] Temperature 2024-10-09 12:43:00.000 97.2 [degF] Temperature 2024-10-05 14:40:00.000 97.3 [degF] BMI (%) 2024-10-05 14:40:00.000 35 kg/m2 Height 2024-10-05 14:40:00.000 66 [in_us] Pulse 2024-10-16 14:02:00.000 70 /min Pulse 2024-10-12 10:25:00.000 72 /min Pulse 2024-10-11 14:42:00.000 79 /min Pulse 2024-10-09 12:43:00.000 77 /min Pulse 2024-10-05 14:40:00.000 68 /min O2 Saturation (%) 2024-10-16 14:02:00.000 93 % O2 Saturation (%) 2024-10-12 10:25:00.000 96 % O2 Saturation (%) 2024-10-11 14:42:00.000 97 % O2 Saturation (%) 2024-10-09 12:43:00.000 98 % O2 Saturation (%) 2024-10-05 14:40:00.000 93 % Respirations 2024-10-16 14:02:00.000 18 /min Respirations 2024-10-12 10:25:00.000 18 /min Respirations 2024-10-11 14:42:00.000 18 /min Respirations 2024-10-09 12:43:00.000 18 /min Respirations 2024-10-05 14:40:00.000 18 /min Weight (lbs) 2024-10-16 14:02:00.000 219 [lb_av] Weight (lbs) 2024-10-12 10:25:00.000 223.8 [lb_av] Weight (lbs) 2024-10-11 14:55:00.000 223 [lb_av] Weight (lbs) 2024-10-05 14:40:00.000 218 [lb_av] Systolic Blood Pressure 2024-10-16 14:02:00.000 124 mm [Hg] Systolic Blood Pressure 2024-10-12 10:25:00.000 116 mm [Hg] Systolic Blood Pressure 2024-10-11 14:42:00.000 118 mm [Hg] Systolic Blood Pressure 2024-10-09 12:43:00.000 118 mm [Hg] Systolic Blood Pressure 2024-10-05 14:40:00.000 122 mm [Hg] Diastolic Blood Pressure 2024-10-16 14:02:00.000 70 mm [Hg] Diastolic Blood Pressure 2024-10-12 10:25:00.000 62 mm [Hg] Diastolic Blood Pressure 2024-10-11 14:42:00.000 80 mm [Hg] Diastolic Blood Pressure 2024-10-09 12:43:00.000 66 mm [Hg] Diastolic Blood Pressure 2024-10-05 14:40:00.000 68 mm [Hg] Plan of Treatment Planned Activity Planned Date Details Comments Future Scheduled Test [facility] NURSE WILL TEACH PATIENT/CAREGIVER ABOUT HEART FAILURE, EDEMA, AND HOW TO WEIGH DAILY AT THE SAME TIME EVERY MORNING AFTER URINATING AND BEFORE BREAKFAST. INSTRUCT PATIENT TO CHECK FOR LBS. OF WEIGHT GAIN CAUSED BY INCREASED FLUID AND [...] BEFORE BREAKFAST. INSTRUCT PATIENT TO CHECK FOR LBS. OF WEIGHT GAIN CAUSED BY INCREASED FLUID AND [...] OF BREATH, OR FATIGUE.] Future Scheduled Test THE [facility] TIFYING PHYSICIAN, [...] BE CONSULTING ON THE CERTIFIED CARE PLAN: MASHA PINEDA [code = EACH ORDERED IN-HOME OR TELEHEALTH [...] BE CONSULTING ON THE CERTIFIED CARE PLAN: MASHA PINEDA] [facility] Sched[facility] WILL INSTRUCT PATIENT/CAREGIVER ON TYPE 2 [...] LOW BLOOD SUGAR.] Future Scheduled Test [facility] WILL INSTRUCT AND VERIFY APPROPRIATE STEPS ON HOW THE PATIENT ADMINISTERS INSULIN INJECTIONS USING AN INJECTION PEN AND IMPORTANCE IN SITE SELECTION AND SYRINGE DISPOSAL. PATIENT/CAREGIVER WILL ADMINISTER INSULIN INJECTIONS USING AN INJECTION PEN PRESCRIBED BY THE PHYSICIAN. [code = HOME HEALTH NURSE WILL INSTRUCT AND VERIFY APPROPRIATE STEPS ON HOW THE PATIENT ADMINISTERS INSULIN INJECTIONS USING AN INJECTION PEN AND IMPORTANCE IN SITE SELECTION AND SYRINGE DISPOSAL. PATIENT/CAREGIVER WILL ADMINISTER INSULIN INJECTIONS USING AN INJECTION PEN PRESCRIBED BY THE PHYSICIAN.] Future Scheduled Test HOME [facility] NURSE WILL ASSESS FOR COMPLICATIONS RELATED TO ANEMIA AND INSTRUCT PATIENT/CAREGIVER ABOUT CAUSES, PRESCRIBED TREATMENT, AND SIGNS/SYMPTOMS TO REPORT. [code = HOME HEALTH NURSE WILL ASSESS FOR COMPLICATIONS RELATED TO ANEMIA AND INSTRUCT PATIENT/CAREGIVER ABOUT CAUSES, PRESCRIBED TREATMENT, AND SIGNS/SYMPTOMS TO REPORT.] Future Scheduled Test [facility] NURSE WILL ASSESS FOR COMPLICATIONS RELATED TO ANTICOAGULATION AND ANTIPLATELET USE AND INSTRUCT PATIENT/CAREGIVER ABOUT PRECAUTIONS TO FOLLOW AND SIGNS/SYMPTOMS TO REPORT. [code = HOME HEALTH NURSE WILL ASSESS FOR COMPLICATIONS RELATED TO ANTICOAGULATION AND ANTIPLATELET USE AND INSTRUCT PATIENT/CAREGIVER ABOUT PRECAUTIONS TO FOLLOW AND SIGNS/SYMPTOMS TO REPORT.] Future Scheduled Test [facility] NURSE TO INSTRUCT ON CHRONIC KIDNEY DISEASE ITS COMPLICATIONS, AND WHEN TO CONTACT THE AGENCY, PHYSICIAN OR 911 [code = HOME HEALTH NURSE TO INSTRUCT ON CHRONIC KIDNEY DISEASE ITS COMPLICATIONS, AND WHEN TO CONTACT THE AGENCY, PHYSICIAN OR 911] Future Scheduled Test HOME [facility] H NURSE WILL INSTRUCT ABOUT COPD, APPROPRIATE BREATHING TECHNIQUES, STRATEGIES TO MANAGE COPD TO PREVENT EXACERBATIONS, STRATEGIES TO PROMOTE SLEEP, USE OF A COPD ACTION PLAN, AND WARNING SIGNS TO CALL THE AGENCY, TREATING PROVIDER, OR 911. [code = HOME HEALTH NURSE WILL INSTRUCT ABOUT COPD, APPROPRIATE BREATHING TECHNIQUES, STRATEGIES TO MANAGE COPD TO PREVENT EXACERBATIONS, STRATEGIES TO PROMOTE SLEEP, USE OF A COPD ACTION PLAN, AND WARNING SIGNS TO CALL THE AGENCY, TREATING PROVIDER, OR 911.] Future Scheduled Test HOME [facility]ALT H NURSE TO INSTRUCT PATIENT/CAREGIVER ON THE TYPE [...] THE AGENCY OR PHYSICIAN.] Future Scheduled Test HOME [facility]ALT H NURSE WILL INSTRUCT AND VERIFY APPROPRIATE STEPS ON HOW THE PATIENT CHECKS OWN BLOOD GLUCOSE AND IMPORTANCE TO TRACK BLOOD RESULTS ON A DAILY LOG OR NOTEBOOK TO MONITOR TRENDS. PATIENT/CAREGIVER OR HOME HEALTH RN WILL PERFORM BLOOD GLUCOSE CHECKS. BLOOD GLUCOSE MONITORING WILL OCCUR 2 TIMES PER DAY. [code = HOME HEALTH NURSE WILL INSTRUCT AND VERIFY APPROPRIATE STEPS ON HOW THE PATIENT CHECKS OWN BLOOD GLUCOSE AND IMPORTANCE TO TRACK BLOOD RESULTS ON A DAILY LOG OR NOTEBOOK TO MONITOR TRENDS. PATIENT/CAREGIVER OR HOME HEALTH RN WILL PERFORM BLOOD GLUCOSE CHECKS. BLOOD GLUCOSE MONITORING WILL OCCUR 2 TIMES PER DAY.] Goal Patient Goal - S OC-10/05/24: STAY OUT OF HOSPITAL Goal Provider Goal - PATIENT/CAREGIVER WILL DEMONSTRATE AND ADHERE TO WEIGHING DAILY WITH THE USE OF TRACKING LOG. PATIENT WILL VERBALIZE WAYS TO MONITOR FLUID OVERLOAD FROM OWN QUALITY OF SLEEP, EDEMA, TIGHT-FITTING CLOTHES, QUALITY OF BREATHING, AND CHANGES IN FEELING MORE TIRED OR WEEK BY THE END OF HOME HEALTH SERVICES. Goal Provider Goal - A PLAN OF CARE WILL BE ESTABLISHED THAT MEETS ALL PATIENT'S LONGTERM NEEDS AND COUNTER SIGNED BY PHYSICIAN. Goal [...] MANNER. Goal Provider Goal - PATIENT/CAREGIVER WILL VERBALIZE UNDERSTANDING OF TYPE 2 DIABETES AND THE IMPORTANCE OF MANAGING THE BLOOD SUGAR WITHIN THE EXPECTED RANGE. PATIENT/CAREGIVER WILL ESTABLISH A DIABETIC TOOLKIT AND A SICK-DAY PLAN TO PREPARE FOR POTENTIAL CHANGES WITH BLOOD SUGARS RANGES. PATIENT/CAREGIVER WILL VERBALIZE WARNING SIGNS OF LOW BLOOD SUGAR AND WHAT ACTIONS TO TAKE. Goal Provider Goal - PATIENT/CAREGIVER WILL INDEPENDENTLY DEMONSTRATE PROPER TECHNIQUE WHEN ADMINISTERING INSULIN INJECTIONS USING AN INJECTION PEN. PATIENT/CAREGIVER WILL VERBALIZE UNDERSTANDING OF APPROPRIATE DISPOSAL OF SYRINGES BY THE END OF HOME HEALTH SERVICES. Goal Provider Goal - PATIENT/CAREGIVER WILL VERBALIZE UNDERSTANDING OF THE CAUSES OF ANEMIA, SIGNS/SYMPTOMS TO REPORT, AND ADHERENCE TO PRESCRIBED TREATMENT BY END OF HOME HEALTH SERVICES. Goal Provider Goal - PATIENT/CAREGIVER WILL VERBALIZE UNDERSTANDING OF ANTICOAGULATION AND ANTIPLATELET COMPLICATIONS TO REPORT AND PRECAUTIONS TO FOLLOW BY END OF HOME HEALTH SERVICES. Goal Provider Goal - PATIENT/CAREGIVER WILL INDEPENDENTLY VERBALIZE THE DEFINITIONS OF CKD, COMPLICATIONS, AND TREATMENTS OF THE DISEASE BY. PATIENT/CAREGIVER WILL INDEPENDENTLY VERBALIZE SYMPTOMS TO REPORT TO THE PHYSICIAN BY THE END OF HOME HEALTH SERVICES. Goal Provider Goal - PATIENT/CAREGIVER WILL DEMONSTRATE WILLINGNESS TO COLLABORATE AND CREATE A COPD ACTION PLAN, VERBALIZE UNDERSTANDING OF STRATEGIES TO PREVENT EXACERBATIONS, AND VERBALIZE WARNING SIGNS AND WHEN TO CONTACT THE TREATING PROVIDER OR 911 UPON THE END OF HOME HEALTH SERVICES. Goal Provider Goal - PATIENT/CAREGIVER WILL VERBALIZE UNDERSTANDING ON HOW TO CLEAN OXYGEN SUPPLIES, OXYGEN SAFETY, AND KNOW WHEN TO CONTACT THE PHYSICIAN BY THE END OF HOME HEALTH SERVICES. Goal Provider Goal - PATIENT/CAREGIVER WILL DEMONSTRATE PROPER TECHNIQUE WHEN CHECKING OWN BLOOD GLUCOSE, DEMONSTRATES ADHERES TO WRITING DOWN RESULTS USING A LOGBOOK, FOLLOWS THE PRESCRIBED FREQUENCY OF BLOOD SUGAR CHECKS PRIOR TO DISCHARGING FROM HOME HEALTH SERVICES. Encounters Start Date/Time End Date/Time Encounter Type Admission Type Attending Clinicians Care Facility Care Department Encounter ID Discharge Date Discharge Status Discharge Condition Discharge Reason Percent Goals Met 2024-10-05 00:00:00 2024-12-03 00:00:00 Outpatient HILDA ANTUNEZ [facility] [id number] 26.67
--- OUTSIDE RECORDS SUMMARY | 2024-10-18 15:46 | XMS_ITS | Encounter Summary ---
Author Organization [facility] Address [address] [place] [address] Care Team Providers Care Adjuster Leader Name Role Phone Piyush Pandey MD Unavailable Unavailabl e Megan Infante MD Primary Care Provider [phone] Sharmila Davis APRN, NP-C Unavailable [phone] Linda Block MD Unavailable [phone] Zaki Ortiz MD Unavailable [phone] Concetta Acevedo MD Unavailable [phone] Jeff Grace MD Unavailable Brit Gonzáles MD Unavailable Encounter Details Date Type Department Care Team (Late st Contact Info) Description 02/22/2023 Hospital Follow-up Call [facility] Unit [address] [place] [address] Cara Potter, RN Social History [...] How often do you attend samaritan or denominational serv ices? Patient declined 02/16/2023 [...] move on to questions 3-9 0 12/01/2021 [facility] of Occupat ional Health - Occupational Stress [...] Sex Assigned at Male 09/07/2024 10:18 PM STATISTICAL FINANCIAL ANALYST Legal Sex Male 10:01 PM CDT Gender Identity Male 09/07/2024 10:18 PM STATISTICAL FINANCIAL ANALYST Sexual Orientation Straight 09/07/2024 10 :18 PM STATISTICAL FINANCIAL ANALYST Occupation Industry Job Start Date Job [...] st Contact Info) Description 10/26/2024 10:15 AM STATISTICAL FINANCIAL ANALYST Telephone [facility] [address] [place] [phone] Brit Gonzáles MD [address] [place], [place] [phone] 12/04/2024 10:00 AM CDT [facility] [address] [place] [address] Brit Gonzáles MD [address] [place], [place] [phone] documented as of this encounter Goals Goal [...] documented as of this encounter Care Teams Adjuster Leader Relationship Specialty Start Date End Date Megan Infante MD [address] [place] [phone] PCP - General FAMILY PRACTICE 04/06/16 Piyush Pandey MD [facility] Practitioner Assistant CARDIOVASCULAR DISEASE 04/06/16 12/28/23 Sharmila Davis APRN, WARPING MACHINE OPERATOR-C [address] [place] [phone] NURSE PRACTITIONER 01/04/17 04/03/24 Linda Block MD [address] [place] [phone] [facility] Practitioner Assistant CLINICAL CARDIAC ELECTROPHYSIOLOGY 02/08/17 04/12/23 Zaki Ortiz MD [address] [place] [phone] Consulting Physician PULMONARY DISEASE 07/12/19 Concetta Acevedo MD [address] [place] [address] Surgeon NEUROLOGICAL SURGERY 12/16/22 Jeff Grace MD [address] [place] [address] Consulting Physician INTERNAL MEDICINE 02/11/23 Brit Gonzáles MD [address] [place] [address] Consulting Physician CARDIOVASCULAR DISEASE 12/29/23 documented as of this encounter
--- OUTSIDE RECORDS SUMMARY | 2024-10-18 15:46 | XMS_ITS ---
Author Organization [facility] Address [address] [place], [place] [address] Care Team Providers Care Bank Vault Custodian Name Role Phone DonalRONALD baltazar Unavailable [phone] Megan Infante Unavailable Unavailable KARLA GUNN Unavailable [phone] REASON FOR VISIT *General care Medications Medication SIG (Take, Route, Frequency, Duration) Notes Start Date End Date Status warfarin sodium 2 MG Oral Tablet [Coumadin] ORAL warfarin sodium 2 MG Oral Tablet [Coumadin]Original Medicationwarfarin sodium 2 MG Oral Tablet [Coumadin] *Reorder from [employer] for eRx and Interaction Alerts* 09/10/2014 Active dofetilide 0.125 MG Oral Capsule [Tikosyn] ORAL dofetilide 0.125 MG Oral Capsule [Tikosyn]Original Medicationdofetilide 0.125 MG Oral Capsule [Tikosyn] *Reorder from [employer] for eRx and Interaction Alerts* 09/10/2014 Active glipiZIDE 5 MG Oral Tablet ORAL glipizide 5 MG Oral TabletOriginal Medicationglipizide 5 MG Oral Tablet *Reorder from [employer] for eRx and Interaction Alerts* 09/10/2014 Active Encounters Encounter Location Date Provider Diagnosis [facility] [address] [place], [place] [id number] 04/13/2024 KARLA GUNN Tinea unguium B35.1 ; Pain in right toe(s) M79.674 ; Pain in left toe(s) M79.675 ; Unspecified atherosclerosis of umatilla tribe arteries of extremities, bilateral legs I70.203 ; [...] (ICD-10 - M79.675) 04/13/2024 Unspecified atherosclerosis of umatilla tribe arteries of extremities, bilateral legs (ICD-10 - [...] OTC and prescription treatments. Unspecified atherosclerosis of umatilla tribe arteries of extremities, bilateral legs Patient educated [...] * OBIE SIMS RDOB:1955 (68 yo M)Acc No.[id number]:04/13/2024 Patient: OBIE NORWOOD Provider: Crow GUNN :1955 A ge:68 Y S ex:Male Date:04/13/2024 Address:[address] [place], [place] [phone] Subjective: * Chief Complaints: * 1 . *General care. * HPI: H PI: General care P atient presents to the office for diabetic foot care. Patient states that their nails are thickened, elongated and painful. Patient states that it is aggravated by shoe gear. Onset is gradual., Patient is taking prescription blood thinners., Date last seen by Dr. Infante was 02/2024., Initials mca. * ROS: G eneral / Constitutional: Patient denies w eakness. R espiratory: Patient denies c hronic cough, shortness of breath, sputum production. C ardiovascular: Patient denies c hest pain, history of NV, irregular heartbeat. M usculoskeletal: Patient denies a [...] Medicationglipizide 5 MG Oral Tablet *Reorder from [facility] for eRx and Interaction Alerts*, Taking dofetilide 0.125 MG Oral Capsule [Tikosyn] ORAL , Notes to Pharmacist: dofetilide 0.125 MG Oral Capsule [Tikosyn]Original Medicationdofetilide 0.125 MG Oral Capsule [Tikosyn] *Reorder from [employer] for eRx and Interaction Alerts*, Taking warfarin sodium 2 MG Oral Tablet [Coumadin] ORAL , Notes to Pharmacist: warfarin sodium 2 MG Oral Tablet [Coumadin]Original Medicationwarfarin sodium 2 MG Oral Tablet [Coumadin] *[facility] for [facility]Rx and Interaction Alerts* Objective: * Examination: P hysical Examination: V ascular: [...] . P ain in right toe(s) - M79.674 3 . P ain in left toe(s) - M79.675 4 . U nspecified atherosclerosis of umatilla tribe arteries of extremities, bilateral legs - I70.203 5 . 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 T ype 2 diabetes mellitus with diabetic peripheral angiopathy without gangrene - E11.51 Plan: * Treatment: 2. U nspecified atherosclerosis of umatilla tribe arteries of extremities, bilateral legs Notes: Patient [...] but not limited to nausea, vomiting, fever. * Procedure Codes: 1 1721 DEBRIDE NAIL, 6 OR MORE, Modifiers: Q8 * Follow Up: 3 Months * Billing Information: * Visit Code: * Procedure Codes: 27449 DEBRIDE NAIL, 6 OR MORE. Modifiers: Q8 * Sign off status: Completed true * Provider: Crow GUNN Date: 0 04/13/2024 Generated for Katiana watson/Kaitlyn/Mindy on: 0 10/18/2024 03:45 PM JUNIOR PROJECT MANAGER History and Physical Notes * HPI (History [...]
--- OUTSIDE RECORDS SUMMARY | 2024-10-18 15:46 | XMS_ITS | Encounter Summary ---
Author Organization [facility] Address [address] [place] [address] Care Team Providers Care Java Web Architect Name Role Phone Piyush Pandey MD Unavailable Unavailabl e Megan Infante MD Primary Care Provider [phone] Sharmila Davis APRN, NET MVC DEVELOPER-C Unavailable [phone] Linda Block MD Unavailable [phone] Jeff Grace MD Unavailable Zaki Ortiz MD Unavailable [phone] Romeo-Concetta Pond MD Unavailable [phone] Jeff Grace MD Unavailable Brit Gonzáles MD Unavailable Encounter Details Date Type Department Care Team (Late st Contact Info) Description 01/21/2023 Abstract [facility] [address] [place] [phone] Sharmila Davis APRN, NET MVC DEVELOPER-C [address] [facility] [address] [place] [phone] Social History Tobacco Use Types Packs/Day Years [...] Sex Assigned at Male 09/07/2024 10:18 PM OIL HEATERMAN Legal Sex Male 10:01 PM CDT Gender Identity Male 09/07/2024 10:18 PM OIL HEATERMAN Sexual Orientation Straight 09/07/2024 10 :18 PM OIL HEATERMAN Occupation Industry Job Start Date Job End [...] st Contact Info) Description 10/26/2024 10:15 AM OIL HEATERMAN Telephone [facility] [address] [place] [address] Brit Gonzáles MD [address] [place] [address] 12/04/2024 10:00 AM CDT [facility] [place] [facility] [address] [place] [phone] Brit Gonzáles MD [address] [place] [address] documented as of this encounter Visit Diagnoses Not on filedocumented in this encounter Additional Health Concerns Assessment Noted Time PHQ-9 Depression Total Score: 0 12/02/19 22 1:18 PM CDT documented as of this encounter Care Teams Java Web Architect Relationship Specialty Start Date End Date Megan Infante MD [address] [place] [address] PCP - General FAMILY PRACTICE 04/06/16 Piyush Pandey MD [place] Portfolio Director CARDIOVASCULAR DISEASE 04/06/16 12/28/23 Sharmila Davis APRN, NET MVC DEVELOPER-C [address] [phone] NURSE PRACTITIONER 01/04/17 04/03/24 Linda Block MD [address] [facility] [address] [phone] [place] Portfolio Director CLINICAL CARDIAC ELECTROPHYSIOLOGY 02/08/17 04/12/23 Jeff Grace MD [address] [facility] [address] [phone] Consulting Physician INTERNAL MEDICINE 02/20/19 3 Zaki Ortiz MD [address] [facility] [address] [phone] Consulting Physician PULMONARY DISEASE 07/12/19 Concetta Acevedo MD [address] [place] [address] Surgeon NEUROLOGICAL SURGERY 12/16/22 Jeff Grace MD [address] [place] [phone] Consulting Physician INTERNAL MEDICINE 02/11/23 Brit Gonzáles MD [address] [place] [address] Consulting Physician CARDIOVASCULAR DISEASE 12/29/23 documented as of this encounter
--- OUTSIDE RECORDS SUMMARY | 2024-10-18 15:46 | XMS_ITS ---
Author Organization [facility] Address [address] [place], [place] [address] Care Team Providers Care Investigations Chief Name Role Phone DonalRONALD baltazar Unavailable [phone] Megan Infante Unavailable Unavailable KARLA GUNN Unavailable [phone] REASON FOR VISIT *General care Encounters Encounter Location Date Provider Diagnosis [address] [phone] 09/07/2024 KARLA GUNN Plan Of Treatment No Information Progress Notes * OBIE SIMS RDOB:1955 (69 yo M)Acc No.[id number]:09/07/2024 Patient: Philly DIAS OBIE Florentino Provider: Crow GUNN :1955 A ge:69 Y S ex:Male Date:09/07/2024 Address:[address] [place], [place] [phone] Subjective: * Chief Complaints: * 1 . *General care. * Medical History: Objective: * Vitals: Assessment: Plan: * Treatment: * Billing Information: * Visit Code: * Procedure Codes: * Electronic signature of LUIS FERNANDO GUNN DPM on 10/18/2024 at 03:46 PM DIAGNOSTIC TECH Sign off status: Pending * Provider: Crow GUNN Date: 0 09/07/2024 Generated for Katiana watson/Kaitlyn/eTransmitting on: 0 10/18/2024 03:46 PM DIAGNOSTIC TECH
--- OUTSIDE RECORDS SUMMARY | 2024-10-18 15:47 | XMS_ITS | Data Portability ---
Author Organization [facility], [address] [facility] Address [address] [address] Care Team Providers Care Scratcher Name Role Phone MASHA PINEDA Primary Care Provider KATINA BELTRAN Phlebotomy Supervisor MASHA PINEDA Referring Provider [phone] Assessment Encounter Date Assessment Date Assessment LastModified [...] serum creatinine level has been between 1.3-1.5. Chronic kidney disease stage III since March 2022 with a baseline serum creatinine between 1.3 1.5. Patient's most recent serum creatinine is noted to be 1.53 with a GFR of 45 Fluid and electrolyte balance are adequate. Patient's microalbumin/creat inine ratio is noted to be minimal at 13.1. Patient continues to hydrate well well and to avoid NSAIDs. Continue to monitor renal function panel at regular intervals. 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 Hypertension Patient's blood pressure is under good control. Patient will continue with his current med regimen and continue to follow a low-sodium diet. CKD/MBD Calcium and phosphorus are within normal range. Anemia of chronic disease Patient's hemoglobin is [...] Organization Details Last Modified Time Details Appointments Danielito brett Patient 15.EST 2024 11:15A M Dr. Katina Beltran Not available Not [...] Abnormal Flag Note LastModifiedBy Organization Detail LastModifiedTime 03/06/20 24 05/03/2023 imagi ng/di agnos tic resul t No observ ation record ed. [email or web address] Not Available 04:13:21 04/06/20 24 09/21/2022 imagi ng/di agnos tic resul t No [...] and Address Organization Details Recorded Time Hyperkalemia 06012927 Active 2023 Leatha york [facility] 4 10:23:34 Renal mass 043187606 Active 2023 Leatha york [facility] 4 10:23:41 Chronic kidney disease stage 3A 742932367 Active 2023 Leatha york [facility] 4 10:23:51 Congestive heart failure 04517098 [facility]23 [facility] 10[facility] Vitamin D deficiency 69686147 Active 2023 Leatha Deluna [facility] 4 10:24:17 Dyspnea 644805361 Active 2023 Leatha Deluna [facility] 4 10:24:26 Decreased renal function 15785038 Active 2023 Tano Potter [facility] 4 11:05:35 Problem Notes None recorded. [...] Results Imaging Date Name Status LastModified by Organiz ation Details LastModified Time 05/03/2023 imaging/diag nostic result completed [email or web address] Information not available 03/06/2024 04:13:21 09/21/2022 imaging/diag nostic result completed Information not available 04/06/2024 06:24:43 09/22/2022 imaging/diag [...] LastModified Time Prescript ion - New active Manager Plan: MILENARANI CHUYRAYMOND ([facility] [employer] Pul[facility] y [facility] ) , Durable Med [...] t Available ciproflox acin 500 mg tablet 10/02 completed Not Available Not Available Not Available hydrocodo ne 10 mg-acetam inophen 325 mg tablet 10/02 completed Not Available Not Available Not Available triamcino [...] ne 7.5 mg-acetam inophen 325 mg tablet 10/02 completed Not Available Not Available Not Available cephalexi n 500 mg capsule 10/02 completed Not Available Not Available Not Available pantopraz [...] AND 1 RITONAVI R T TOGETHER PO 10/02 completed Not Available Not Available Not Available Ozempic 0.25 mg or 0.5 mg (2 mg/3 mL) subcutane ous pen injector 03/16 completed Not Available Not Available Not Available Vitals Date Recorded Body height Heart rate Oxygen saturation Oxygen saturation in Arterial blood by Pulse oximetry Systolic blood pressure Diastolic blood pressure Provider Name and Address Organization Details Last Updated DateTime 4 167.64 cm 77 /min 99 % 99 % 120 mm[Hg] 72 mm[Hg] Leatha Deluna [facility] 4 11:55:08 Date Recorded Body height Heart rate Systolic blood pressure Diastolic blood pressure Provider Name and Address Organization Details Last Updated DateTime 06/15/2024 167.64 cm 91 /min 106 mm[Hg] 54 mm[Hg] Cristiano Mora [facility] 06/15/2024 11:30:13 Social History Question Answer Notes LastModified by Organizat ion Details LastModified Time Tobacco Smoking Status Former Smoker Leatha Deluna [facility] 10/02/2024 17:01:49 Do You Have An Advance Directive? No [...] Do You Have A Medical Power Of Official Court Interpreter? No [email or web address] Information not available 03/09/2024 What [...] available 03/09 12:07:17 Medical History Condition Response High Blood Pressure N COPD Y Depression N Anxiety Disorder N Arthritis Y Cancer N Stroke N Fibromyalgia N Kidney Disease Y Bleeding Disorder N Asthma N Seizures N Attention-deficit Hyperactivity Disorder N Thyroid Problems N Anemia N Diabetes Y Hyperlipidemia N Heart Disease Y Osteoporosis N Past Encounters Encounter ID Performer Location Encounter Start Date Encounter Closed Date Diagnosis/Indication Diagnosis SNOMED-CT Code Diagnosis ICD10 Code Diagnosis Note [id number] Katina Beltran MD [facility] [address] [place] [address] 03/16/2024 11:28:49 03/16/2024 12:18:20 Chronic kidney disease stage 3A 953555311 N18.31 Decreased renal function 56711582 R94.4 Hyperkalemia 37418551 E8 7.5 Renal mass 770372727 N28 .89 Vitamin D deficiency 347 45842 E55.9 [id number] Theresa Sheriff PA-C [facility] [place] [address] [place] [address] 06/15/2024 11:12:17 06/15/2024 11:50:06 Chronic kidney disease stage 3A 813574084 N18.31 Health Concerns Section Related Observation LastModified by Organization Juice ls LastModified Time None Recorded Concern Status LastModified by Organization Details LastModified Time None Recorded Advance Directives Directive N: Payers Encounter Date Sequence Insurance Name Policy Number Policy Vicente Covered Member ID Vicente Member ID Guarantor Name 03/16/2024 1 [place] Mendez Lay [id number] 1 Mendez Lay 06/15/2024 1 [place] Mendez Lay [id number] 1 Mendez Lay Notes Date Note Type [...] Levaquin therapy. Katina Beltran MD [address] [place] [address], [phone], [facility] 03/16/2024 12:17:49 06/15/2024 text/html Mr. Lay [...] doing okay. Theresa Sheriff PA-C [address] [place] [address], [phone], [facility] 06/15/2024 17:23:12
--- OUTSIDE RECORDS SUMMARY | 2024-10-18 15:47 | XMS_ITS | Clinical Summary ---
Author Organization Unknown Care Team Providers Care Electric Serviceman Name Role Phone MIRIAM MASHA Unavailable Unavailable BEVERLY PHYSICAL THERAPIST, EMILE Unavailabl e Unavailable SATHYA WORKERS COMPENSATION CLAIMS EXAMINER, MONICA Unavail able Unavailable [facility] REGISTERED NURSE, [...] 08-23 00:00: 00 ATHSCL HEART DISEASE OF [place] CORONARY ARTERY W/O ANG PCTRS Active 08-23 [...] ON SUPPLEMENTAL OXYGEN Active 08-23 00:00: 00 [facility] (CURRENT) USE OF ASPIRIN Active 08-23 00:00: 00 [facility] (CURRENT) USE OF ANTICOAGULAN TS Active 08-23 00:00: 00 [facility] (CURRENT) USE OF ORAL HYPOGLYCEMIC DRUGS Active 08-23 00:00: 00 [facility] (CURRENT) USE OF INSULIN Active 08-23 00:00: 00 [facility] (CURRENT) USE OF INHALED STEROIDS Active 08-23 [...] 03-01 00:00: 00 08-17 23:59 :00 No [id number] GOUT 1 tablet ONCE DAILY 1 tablet ONCE DAILY (route: oral) Med Classific ation: Gout and Hyperuric emia Therapy aspirin 81 mg tablet,brandon yed release 03-01 00:00: 00 08-17 23:59 :00 No [id number] CAD 1 tablet ONCE DAILY 1 tablet ONCE DAILY (route: oral) Med Classific ation: Hematolog ical Agents atorvastati n 80 mg tablet 03-01 00:00: 00 08-17 23:59 :00 No [id number] HLD 1 tablet ONCE DAILY 1 tablet ONCE DAILY (route: oral) Med Classific ation: Cardiovas cular Therapy Agents carvedilol 3.125 mg tablet 03-01 00:00: 00 08-17 23:59 :00 No [id number] CAD 1 tablet TWICE DAILY 1 tablet TWICE DAILY (route: oral) Med Classific ation: Cardiovas cular Therapy Agents dicloxacill in 500 mg capsule 02-24 00:00: 00 03-05 23:59 :00 No [id number] CELLULITIS 1 capsule 4 TIMES DAILY 1 capsule 4 TIMES DAILY (route: oral) Med Classific ation: Anti-Infe ctive Agents docusate sodium 100 mg capsule 03-01 00:00: 00 08-17 23:59 :00 No [id number] CONSTIPATIO N 1 capsule TWICE DAILY 1 capsule TWICE DAILY (route: oral) Med Classific ation: Gastroint estinal Therapy Agents Entresto 24 mg-26 mg tablet 03-01 00:00: 00 08-17 23:59 :00 No [id number] CHF 1 tablet TWICE DAILY 1 tablet TWICE DAILY (route: oral) Med Classific ation: Cardiovas cular Therapy Agents ferrous sulfate 325 mg (65 mg iron) tablet 03-01 00:00: 00 08-17 23:59 :00 No [id number] ANEMIA 1 tablet ONCE DAILY 1 tablet ONCE DAILY (route: oral) Med Classific ation: Electroly te Balance-N utritiona l Products furosemide 40 mg tablet 03-01 00:00: 00 08-17 23:59 :00 No [id number] CHF 1 tablet TWICE DAILY 1 tablet TWICE DAILY (route: oral) Med Classific ation: Cardiovas cular Therapy Agents gabapentin 400 mg capsule 03-01 00:00: 00 08-17 23:59 :00 No [id number] NEUROPATHY 1 capsule TWICE DAILY 1 capsule TWICE DAILY (route: oral) Med Classific ation: Central Nervous System Agents glipizide 5 mg tablet 03-01 00:00: 08-17 23:59 :00 No [id number] DM 1 tablet ONCE DAILY 1 tablet ONCE DAILY (route: oral) Med Classific ation: Endocrine hydrocodone 7.5 mg-acetamin ophen 325 mg tablet 03-01 00:00: 00 08-17 23:59 :00 No [id number] PAIN 1 tablet 3 TIMES DAILY 1 tablet 3 TIMES DAILY (route: oral) Med Classific ation: Analgesic , Anti-infl ammatory or Antipyret ic hydroxyzine HCl 50 mg tablet 03-01 00:00: 00 08-17 23:59 :00 No [id number] ITCHING 2 tablet 3 TIMES DAILY 2 tablet 3 TIMES DAILY (route: oral) Med Classific ation: Central Nervous System Agents Jardiance 25 mg tablet 03-01 00:00: 00 08-17 23:59 :00 No [id number] DM 1 tablet ONCE DAILY 1 tablet ONCE DAILY (route: oral) Med Classific ation: Endocrine OXYGEN 03-01 00:00: 08-17 23:59 :00 No [id number] HYPOXIA 2-3 Liter NEEDED 2-3 Liter NEEDED (route: Oxygen) Med Classific ation: Medical Oxygen Ozempic 1 mg/dose (4 mg/3 mL) subcutaneou s pen injector 03-01 00:00: 08-17 23:59 :00 No [id number] DM 1 mg WEEKLY 1 mg WEEKLY (route: subcutaneo us) Med Classific ation: Endocrine pantoprazol e 40 mg tablet,brandon yed release 03-01 00:00: 00 08-17 23:59 :00 No [id number] GERD 1 tablet ONCE DAILY 1 tablet ONCE DAILY (route: oral) Med Classific ation: Gastroint estinal Therapy Agents potassium chloride ER 20 mEq tablet,exte nded release 03-01 00:00: 00 08-17 23:59 :00 No [id number] HYPOKALEMIA 1 tablet ONCE DAILY 1 tablet ONCE DAILY (route: oral) Med Classific ation: Electroly te Balance-N utritiona l Products ropinirole 2 mg tablet 03-01 00:00: 00 08-17 23:59 :00 No [id number] RLS 2 tablet AT BEDTIME 2 tablet AT BEDTIME (route: oral) Med Classific ation: Central Nervous System Agents sertraline 50 mg tablet 03-01 00:00: 00 08-17 23:59 :00 No [id number] DEPRESSION 1 tablet ONCE DAILY 1 tablet ONCE DAILY (route: oral) Med Classific ation: Central Nervous System Agents spironolact one 25 mg tablet 03-01 00:00: 00 08-17 23:59 :00 No [id number] CH 1 tablet ONCE DAILY 1 tablet ONCE DAILY (route: oral) Med Classific ation: Cardiovas cular Therapy Agents tamsulosin 0.4 mg capsule 03-01 00:00: 00 08-17 23:59 :00 No [id number] URINARY RETENTION 1 capsule ONCE DAILY 1 capsule ONCE DAILY (route: oral) Med Classific ation: Genitouri nary Therapy trazodone 150 mg tablet 03-01 00:00: 00 08-17 23:59 :00 No [id number] INSOMNIA 1 tablet AT BEDTIME 1 tablet AT BEDTIME (route: oral) Med Classific ation: Central Nervous System Agents Tresiba FlexTouch U-200 insulin 200 unit/mL (3 mL) subcutane s pen 03-01 00:00: 00 08-17 23:59 :00 No [id number] DM 30 unit ONCE DAILY 30 unit ONCE DAILY (route: subcutaneo us) Med Classific ation: Endocrine Ventolin HFA 90 mcg/actuati on aerosol inhaler 03-01 00:00: 00 08-17 23:59 :00 No [id number] WHEEZING/SH ORTNESS OF BREATH 1 puff EVERY 4 HOURS 1 puff EVERY 4 HOURS (route: inhalation ) Med Classific ation: Respirato ry Therapy Agents warfarin 1 mg tablet 03-01 00:00: 00 08-17 23:59 :00 No [id number] AFIB 1 tablet AT BEDTIME 1 tablet AT BEDTIME (route: oral) Med Classific ation: Hematolog ical Agents warfarin 5 mg tablet 03-01 00:00: 00 08-17 23:59 :00 No [id number] AFIB 1 tablet AT BEDTIME 1 tablet AT BEDTIME (route: oral) Med Classific ation: Hematolog ical Agents albuterol sulfate HFA 90 mcg/actuati on aerosol inhaler 2023-08 00:00: 00 09-27 23:59 :00 No [id number] WHEEZING 2 puff EVERY 4 HOURS 2 puff EVERY 4 HOURS (route: inhalation ) Med Classific ation: Respirato ry Therapy Agents allopurinol 300 mg tablet 2023-08 00:00: 00 09-27 23:59 :00 No [id number] GOUT 1 tablet DAILY 1 tablet DAILY (route: oral) Med Classific ation: Gout and Hyperuric emia Therapy aspirin 81 mg tablet,brandon yed release 2023-08 00:00: 00 09-27 23:59 :00 No [id number] BLOOD CLOT PREVENTION 1 tablet DAILY 1 tablet DAILY (route: oral) Med Classific ation: Hematolog ical Agents carvedilol 3.125 mg tablet 2023-08 00:00: 00 09-27 23:59 :00 No [id number] HTN 1 tablet 2 TIMES DAILY 1 tablet 2 TIMES DAILY (route: oral) Med Classific ation: Cardiovas cular Therapy Agents Colace 100 mg capsule 2023-08 00:00: 00 09-27 23:59 :00 No [id number] CONSTIPATIO N 1 capsule DAILY 1 capsule DAILY (route: oral) Med Classific ation: Gastroint estinal Therapy Agents cyclobenzap rine 10 mg tablet 2023-08 00:00: 00 09-27 23:59 :00 No [id number] BPH 1 tablet DAILY 1 tablet DAILY (route: oral) Med Classific ation: Locomotor System Entresto 24 mg-26 mg tablet 2023-08 00:00: 00 09-27 23:59 :00 No [id number] HF 1 tablet 2 TIMES DAILY 1 tablet 2 TIMES DAILY (route: oral) Med Classific ation: Cardiovas cular Therapy Agents folic acid 1 mg tablet 2023-08 00:00: 00 09-27 23:59 :00 No [id number] SUPPLEMENT 1 tablet DAILY 1 tablet DAILY (route: oral) Med Classific ation: Electroly te Balance-N utritiona l Products gabapentin 400 mg capsule 2023-08 00:00: 00 09-27 23:59 :00 No [id number] NEUROPATHY 1 capsule 2 TIMES DAILY 1 capsule 2 TIMES DAILY (route: oral) Med Classific ation: Central Nervous System Agents glipizide 5 mg tablet 2023-08 00:00: 00 09-27 23:59 :00 No [id number] DIABETES 1 tablet DAILY 1 tablet DAILY (route: oral) Med Classific ation: Endocrine hydrocodone 10 mg-acetamin ophen 325 mg tablet 2023-08 00:00: 00 09-27 23:59 :00 No [id number] PAIN 1 tablet EVERY 6 HOURS 1 tablet EVERY 6 HOURS (route: oral) Med Classific ation: Analgesic , Anti-infl ammatory or Antipyret ic hydroxyzine HCl 50 mg tablet 2023-08 00:00: 00 09-27 23:59 :00 No [id number] ITCHING 2 tablet 3 TIMES DAILY 2 tablet 3 TIMES DAILY (route: oral) Med Classific ation: Central Nervous System Agents Jardiance 25 mg tablet 2023-08 00:00: 00 09-27 23:59 :00 No [id number] DIABETES 1 tablet DAILY 1 tablet DAILY (route: oral) Med Classific ation: Endocrine Lasix 80 mg tablet 2023-08 00:00: 00 09-27 23:59 :00 No [id number] FLUID RETENTION 1 tablet DAILY 1 tablet DAILY (route: oral) Med Classific ation: Cardiovas cular Therapy Agents oxygen gas for inhalation 2023-08 00:00: 08-21 23:59 :00 No [id number] OXYGENATION 2 Liter O2 - PRN 2 Liter O2 - PRN (route: inhalation ) Med Classific ation: Medical Supplies and Durable Medical Equipment (DME) Ozempic 1 mg/dose (4 mg/3 mL) subcutaneou s pen injector 2023-08 00:00: 00 09-27 23:59 :00 No [id number] DIABETES 1 mg WEEKLY 1 mg WEEKLY (route: subcutaneo us) Med Classific ation: Endocrine pregabalin 150 mg capsule 2023-08 00:00: 00 09-27 23:59 :00 No [id number] MUSCLE PAIN 1 capsule 2 TIMES DAILY 1 capsule 2 TIMES DAILY (route: oral) Med Classific ation: Central Nervous System Agents sertraline 50 mg tablet 2023-08 00:00: 00 09-27 23:59 :00 No [id number] DEPRESSION 1 tablet DAILY 1 tablet DAILY (route: oral) Med Classific ation: Central Nervous System Agents trazodone 150 mg tablet 2023-08 00:00: 00 09-27 23:59 :00 No [id number] DEPRESSION 2 tablet DAILY 2 tablet DAILY (route: oral) Med Classific ation: Central Nervous System Agents Trelegy Ellipta 100 mcg-62.5 mcg-25 mcg powder for inhalation 2023-08 00:00: 00 09-27 23:59 :00 No [id number] SHORTNESS OF BREATH 1 inhalat ion DAILY 1 inhalation DAILY (route: inhalation ) Med Classific ation: Respirato ry Therapy Agents warfarin 4 mg tablet 2023-08 00:00: 00 09-27 23:59 :00 No [id number] BLOOD CLOT PREVENTION 1 tablet DAILY 1 tablet DAILY (route: oral) Med Classific ation: Hematolog ical Agents oxygen gas for inhalation 2023-08 00:00: 00 09-27 23:59 :00 No [id number] OXYGENATION 2 Liter O2 - PRN 2 Liter O2 - PRN (route: inhalation ) Alternate Route: O2 - NASAL CANNULA. Med Classific ation: Medical Supplies and Durable Medical Equipment (DME) albuterol sulfate HFA 90 mcg/actuati on aerosol inhaler 10-05 00:00: 00 Yes [id number] SOB 2 puff EVERY 4 HOURS 2 puff EVERY 4 HOURS (route: inhalation ) Med Classific ation: Respirato ry Therapy Agents allopurinol 300 mg tablet 10-05 00:00: 00 Yes [id number] GOUT 1 tablet ONCE DAILY 1 tablet ONCE DAILY (route: oral) Med Classific ation: Gout and Hyperuric emia Therapy aspirin 81 mg chewable tablet 10-05 00:00: 00 Yes [id number] PREVENT CLOTS 1 tablet ONCE DAILY 1 tablet ONCE DAILY (route: oral) Med Classific ation: Hematolog ical Agents atorvastati n 80 mg tablet 10-05 00:00: 00 Yes [id number] HIGH CHOLESTEROL 1 tablet ONCE DAILY 1 tablet ONCE DAILY (route: oral) Med Classific ation: Cardiovas cular Therapy Agents docusate sodium 100 mg tablet 10-05 00:00: 00 Yes [id number] CONSTIPATIO N 1 tablet ONCE DAILY 1 tablet ONCE DAILY (route: oral) Med Classific ation: Gastroint estinal Therapy Agents folic acid 1 mg tablet 10-05 00:00: 00 Yes [id number] SUPPLEMENT 1 tablet ONCE DAILY 1 tablet ONCE DAILY (route: oral) Med Classific ation: Electroly te Balance-N utritiona l Products hydrocodone 7.5 mg-acetamin ophen 325 mg tablet 10-05 00:00: 00 Yes [id number] PAIN 1 tablet EVERY 8 HOURS 1 tablet EVERY 8 HOURS (route: oral) Med Classific ation: Analgesic , Anti-infl ammatory or Antipyret ic hydroxyzine HCl 50 mg tablet 10-05 00:00: 00 Yes [id number] ITCHING 1 tablet 3 TIMES DAILY 1 tablet 3 TIMES DAILY (route: oral) Med Classific ation: Central Nervous System Agents insulin degludec (U-100) 100 unit/mL subcutaneou s solution 10-05 00:00: 00 Yes [id number] DIABETES 30 unit ONCE DAILY 30 unit ONCE DAILY (route: subcutaneo us) Med Classific ation: Endocrine Jardiance 25 mg tablet 10-05 00:00: 00 Yes [id number] DIABETES 1 tablet ONCE DAILY 1 tablet ONCE DAILY (route: oral) Med Classific ation: Endocrine metoprolol succinate ER 25 mg tablet,exte nded release 24 hr 10-05 00:00: 00 Yes [id number] HYPERTENSIO N 1 tablet ONCE DAILY 1 tablet ONCE DAILY (route: oral) Med Classific ation: Cardiovas cular Therapy Agents nystatin 100,000 unit/gram topical powder 10-05 00:00: 00 Yes [id number] RASH Per instruc tions ONCE DAILY Per instructio ns ONCE DAILY (route: topical) Med Classific ation: Dermatolo gical pantoprazol e 40 mg tablet,brandon yed release 10-05 00:00: 00 Yes [id number] UPSET STOMACH 1 tablet ONCE DAILY 1 tablet ONCE DAILY (route: oral) Med Classific ation: Gastroint estinal Therapy Agents pregabalin 150 mg capsule 10-05 00:00: 00 Yes [id number] PAIN 1 capsule TWICE DAILY 1 capsule TWICE DAILY (route: oral) Med Classific ation: Central Nervous System Agents sertraline 50 mg tablet 10-05 00:00: 00 Yes [id number] DEPRESSION 1 tablet ONCE DAILY 1 tablet ONCE DAILY (route: oral) Med Classific ation: Central Nervous System Agents trazodone 100 mg tablet 10-05 00:00: 00 Yes [id number] SLEEP 3 tablet ONCE DAILY 3 tablet ONCE DAILY (route: oral) Med Classific ation: Central Nervous System Agents Trelegy Ellipta 100 mcg-62.5 mcg-25 mcg powder for inhalation 10-05 00:00: 00 Yes [id number] COPD 1 inhalat ion ONCE DAILY 1 inhalation ONCE DAILY (route: inhalation ) Med Classific ation: Respirato ry Therapy Agents warfarin 2 mg tablet 10-05 00:00: 00 10-11 23:59 :00 No [id number] PREVENT CLOTS 1 tablet ONCE DAILY 1 tablet ONCE DAILY (route: oral) Med Classific ation: Hematolog ical Agents oxygen gas for inhalation 10-05 00:00: 00 Yes [id number] COPD 2 Liter INTERMITTE NT 2 Liter INTERMITTE NT (route: inhalation ) Med Classific ation: Medical Supplies and Durable Medical Equipment (DME) insulin lispro (U-100) 100 unit/mL subcutaneou s pen 10-11 00:00: 00 Yes [id number] DIABETES Per instruc tions DIRECTED Per instructio ns DIRECTED (route: subcutaneo us) Med Classific ation: Endocrine warfarin 5 mg tablet 10-11 00:00: 00 Yes [id number] PREVENT CLOTS 1 tablet ONCE DAILY 1 [...] PLAN: MASHA PINEDA] [facility] PATIENT/CAREGIVER ON TYPE [...] LOW BLOOD SUGAR.] Future Scheduled [facility] WILL INSTRUCT AND VERIFY APPROPRIATE [...] BY THE PHYSICIAN.] Future Scheduled Test [facility] NURSE WILL ASSESS FOR COMPLICATIONS RELATED TO ANEMIA AND INSTRUCT PATIENT/CAREGIVER ABOUT CAUSES, PRESCRIBED TREATMENT, AND SIGNS/SYMPTOMS TO REPORT. [code = [facility] NURSE WILL ASSESS FOR COMPLICATIONS RELATED TO ANEMIA AND INSTRUCT PATIENT/CAREGIVER ABOUT CAUSES, PRESCRIBED TREATMENT, AND SIGNS/SYMPTOMS TO REPORT.] Future Scheduled Test [facility] NURSE WILL ASSESS FOR COMPLICATIONS RELATED TO ANTICOAGULATION AND ANTIPLATELET USE AND INSTRUCT PATIENT/CAREGIVER ABOUT PRECAUTIONS TO FOLLOW AND SIGNS/SYMPTOMS TO REPORT. [code = HOME [facility]ALTH NURSE WILL ASSESS FOR COMPLICATIONS RELATED TO ANTICOAGULATION AND ANTIPLATELET USE AND INSTRUCT PATIENT/CAREGIVER ABOUT PRECAUTIONS TO FOLLOW AND SIGNS/SYMPTOMS TO REPORT.] Future Scheduled Test [facility] NURSE TO INSTRUCT ON CHRONIC KIDNEY [...] 2024-10-05 00:00:00 2024-12-03 00:00:00 Outpatient HILDA ANTUNEZ [facility] [id number] 26.67
--- OUTSIDE RECORDS SUMMARY | 2024-10-18 15:47 | XMS_ITS | Patient Health Record ---
Author Organization [facility] Address [address] [place], [place] [id number] Care Team Providers Care Bill Recapitulation Clerk Name Role Phone DonalRONALD baltazar Unavailable [phone] Megan Infante Unavailable Unavailable KARLA GUNN Unavailable [phone] Allergies No Known Allergies Reason For Referral No Information Medications Medication SIG (Take, Route, Frequency, Duration) Notes Start Date End Date Status Clotrimazole-Bet amethasone 1-0.05 % 1 application Externally Twice a day 07/06/2024 Active dofetilide 0.125 MG Oral Capsule [Tikosyn] ORAL dofetilide 0.125 MG Oral Capsule [Tikosyn]Original Medicationdofetilide 0.125 MG Oral Capsule [Tikosyn] *Reorder from Moz for eRx and Interaction Alerts* 09/10/2014 Active warfarin sodium 2 MG Oral Tablet [Coumadin] ORAL warfarin sodium 2 MG Oral Tablet [Coumadin]Original Medicationwarfarin sodium 2 MG Oral Tablet [Coumadin] *Reorder from Moz for eRx and Interaction Alerts* 09/10/2014 Active glipiZIDE 5 MG Oral Tablet ORAL glipizide 5 MG Oral TabletOriginal Medicationglipizide 5 MG Oral Tablet *Reorder from Moz for eRx and Interaction Alerts* 09/10/2014 Active Immunizations Vaccine Route Administration Date Status Comme nts Influenza, high dose seasonal Unknown 06/04/2023 Admini stered Vital Signs Height-cm 167.64 cm 01/13/2024 Weight-kg 90.72 kg 01/13/2024 Height 66.00 in 01/13/2024 Weight 200 lbs 01/13/2024 BMI 32.28 kg/m2 01/13/2024 Encounters Encounter Location Date Provider Diagnosis [address] [id number] 09/07/2024 KARLA GUNN [facility] [place] [address] [place], [place] [id number] 10/28/2023 KARLA GUNN Tinea unguium B35.1 ; Pain in right toe(s) M79.674 ; Pain in left toe(s) M79.675 ; Unspecified atherosclerosis of [place] arteries of extremities, bilateral legs I70.203 ; Xerosis cutis L85.3 and Type 2 diabetes mellitus with diabetic peripheral angiopathy without gangrene E11.[address] [id number] 01/13/2024 KARLA GUNN Tinea unguium B35.1 ; Pain in right toe(s) M79.674 ; Pain in left toe(s) M79.675 ; Unspecified atherosclerosis of [place] arteries of extremities, bilateral legs I70.203 ; Xerosis cutis L85.3 and Type 2 diabetes mellitus with diabetic peripheral angiopathy without gangrene E11.[address] [id number] 04/13/2024 KARLA GUNN Tinea unguium B35.1 ; Pain in right toe(s) M79.674 ; Pain in left toe(s) M79.675 ; Unspecified atherosclerosis of [place] arteries of extremities, bilateral legs I70.203 ; Xerosis cutis L85.3 and Type 2 diabetes mellitus with diabetic peripheral angiopathy without gangrene E11.[address] [id number] 07/06/2024 KARLA GUNN Tinea unguium B35.1 ; Pain in right toe(s) M79.674 ; Pain in left toe(s) M79.675 ; Unspecified atherosclerosis of [place] arteries of extremities, bilateral legs I70.203 ; [...] (ICD-10 - M79.675) 10/28/2023 Unspecified atherosclerosis of [place] arteries of extremities, bilateral legs (ICD-10 - I70.203) Patient educated on risks and aggravating factors of PVD, including conservative treatment options such as a diet and exercise regimen to aid in slowing progression of vascular disease 01/13/2024 Unspecified atherosclerosis of [place] arteries of extremities, bilateral legs (ICD-10 - I70.203) Patient educated on risks and aggravating factors of PVD, including conservative treatment options such as a diet and exercise regimen to aid in slowing progression of vascular disease 04/13/2024 Unspecified atherosclerosis of [place] arteries of extremities, bilateral legs (ICD-10 - I70.203) Patient educated on risks and aggravating factors of PVD, including conservative treatment options such as a diet and exercise regimen to aid in slowing progression of vascular disease 07/06/2024 Unspecified atherosclerosis of [place] arteries of extremities, bilateral legs (ICD-10 - [...] Date Coverage End Date [employer] [address] [place] [phone] [id number] OBIE SIMS Self - patient is the insured [address] [place] [phone] [id number] OBIE SIMS Self - patient is the insured
--- OUTSIDE RECORDS SUMMARY | 2024-10-18 15:47 | XMS_ITS | Clinical Summary ---
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 2 tablet 09/21/19 Active aspirin 81 MG chewable tablet Chew [...] (three) times daily before meals. 2.7 mL 09/21/19 25 025 Active insulin lispro (HUMALOG/ADME LOG) 100 UNIT/ML injection (VIAL) Inject 6 Units into the skin 3 (three) times daily before meals. 5.4 mL 09/21/19 25 025 Active metoprolol succinate ER (TOPROL-XL) 25 MG 24 hr tablet Take 1 tablet (25 mg total) by mouth daily for 30 days. 30 tablet 09/22/19 25 Active carvedilol (COREG) 3.125 MG tablet Take 1 tablet (3.125 mg total) by mouth 2 (two) times daily. 10/09/19 025 Discontinued(St op Taking at Discharge) glipiZIDE XL (GLUCOTROL XL) 5 MG 24 hr tablet Take 1 tablet (5 mg total) by mouth daily with breakfast. 30 tablet 02/10/20 025 Discontinued(St op Taking at Discharge) furosemide (LASIX) 80 MG tablet Take 1 tablet (80 mg total) by mouth daily. 30 tablet 07/17/20 025 Discontinued(St op Taking at Discharge) sacubitril-va lsartan (ENTRESTO) 24-26 MG tabletIndicat ions:Chronic combined systolic and diastolic congestive heart failure ([facility]) Take 1 tablet by mouth 2 (two) [...] 8 (eight) hours as needed for Pain. 025 Discontinued HYDROcodone-a cetaminophen (NORCO) 7.5-325 MG tabletIndicat ions:Acute Pain < 3 Day Supply Take 1 tablet by mouth every 8 (eight) hours as needed for Pain. Indications: Acute Pain < 3 Day Supply 6 tablet 09/21/19 25 Active Problems Problem Noted Date Diagnosed Date Chronic venous insufficiency 04/17/2024 CHF exacerbation ([facility]) 07/12/2023 Rib fractures 02/06/2023 NSTEMI (non-ST elevated myoc ardial infarction) ([facility]) 02/01/2022 Elevated troponin 02/01/2022 Elevated brain natriuretic peptide (BNP) level 0 02/01/2022 Fall 02/01/2022 Other closed fracture of dis kaity end of right fibula with routine healing, subsequent encounter 01/29/2022 Leg edema 12/09/2021 Mild persistent asthma without complication ([facility]) 04/06/2021 Asymptomatic carotid artery stenosis, bilateral 11/26/2020 Obstructive sleep apnea (adult) (pediatric) 10/21 Pulmonary hypertension ([facility]) 021 TIA (transient ischemic attack) 09/03/2020 Pain in both lower extremities 03/07/2019 Chronic atrial fibrillation ([facility]) Chronic anticoagulation 02/15/2017 Abnormal finding on [...] hypertension Mixed hyperlipidemia Diabetes mellitus, type II ([facility]) Coronary artery disease invo lving [place] coronary artery of [place] heart without angina pectoris COPD (chronic obstructive pu lmonary disease) ([facility]) Carotid disease, bilateral Arthritis Aortic stenosis Varicose veins of bilateral lower extremities with other complications Abnormal ankle brachial index (STELLA) Claudication CHF (congestive heart failure) ([facility]) 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 ([facility]) Non-pressure chronic ulcer o f left calf limited to breakdown of skin ([facility]) Resolved Problems Problem Noted Date Diagnosed Date Resolved Date Encounter for preventive health examination 02/06/2014 05/03/2020 PAD (peripheral artery disease) 04/11/2019 Encounters Date Type Department Care Team Description 09/21/2024 Telephone [facility] [address] [place] [address] Brit Gonzáles MD Holter Monitor 09/21/2024 Orders Only [facility] [address] [place] [address] Brit Gonzáles MD 09/12/2024 Telephone [facility] [address] [place] [address] Brit Gonzáles MD Appointment Request 08/31/2024 8:49 AM REGIONAL CLIMATE CHANGE ANALYST - 09/21/2024 10:43 AM REGIONAL CLIMATE CHANGE ANALYST Hospital Encounter [facility] [address] [place] [address] Chidi Umanzor MD Jabeen, MD Greyson Henry, MD Paul Laura Rajamurugan R, MD Rangu, MD Steve Travis Maryam, MD Markapuram, MD Ronen Discharge Disposition: Swing Bed 08/31/2024 Travel 08/24/2024 1:15 PM REGIONAL CLIMATE CHANGE ANALYST Office Visit [facility] [address] [place] [address] Arnold Hernandez MD New Patient (Ventral hernia) 08/24/2024 Travel 08/14/2024 2:10 PM REGIONAL CLIMATE CHANGE ANALYST - 08/14/2024 11:59 PM REGIONAL CLIMATE CHANGE ANALYST Hospital Encounter [facility] [address] [place] [address] Zayra Powell FNP Discharge Disposition: Home or Self Care (Routine Discharge) 08/14/2024 Travel 08/08/2024 1:52 PM REGIONAL CLIMATE CHANGE ANALYST - 08/08/2024 11:59 PM REGIONAL CLIMATE CHANGE ANALYST Hospital Encounter [facility] [address] [place] [address] Zayra Powell FNP Discharge Disposition: Home or Self Care (Routine Discharge) 08/08/2024 Travel 07/31/2024 3:15 PM REGIONAL CLIMATE CHANGE ANALYST - 08/03/2024 1:08 PM REGIONAL CLIMATE CHANGE ANALYST Hospital Encounter [facility] [address] [place] [address] Jena Schilling MD Fisher, Amy E, MD Ishmael, Cornelius Summers MD Shortness Of Breath Discharge [...] pur e alcohol) 4 beers per week [employer] Utilities Answer Date Recorded In the past 12 months has Miner, gas, oil, or water [employer] threatened to shut off services in your [...] time in the past [address] [facility], were you homeless or living in a intermediate (including now)? No 08/31/2024 Sex and Gender Information Value Date Recorded Sex Assigned at Male 09/07/2024 10:18 PM REGIONAL CLIMATE CHANGE ANALYST Legal Sex Male 10:01 PM CDT Gender Identity Male 09/07/2024 10:18 PM REGIONAL CLIMATE CHANGE ANALYST Sexual Orientation Straight 09/07/2024 10 :18 PM REGIONAL CLIMATE CHANGE ANALYST Occupation Industry Job Start Date Job End Date Not on file Not on file Not on file Not on file Last Filed Vital Signs Vital Sign Reading Time Taken Comments Blood Pressure 110/61 09/21/2024 7:39 AM REGIONAL CLIMATE CHANGE ANALYST Pulse 78 09/21/2024 7:39 AM REGIONAL CLIMATE CHANGE ANALYST Temperature 36.4 C (97.5 F) 09/21/2024 7:39 AM REGIONAL CLIMATE CHANGE ANALYST Respiratory Rate 17 09/21/2024 7:39 AM REGIONAL CLIMATE CHANGE ANALYST Oxygen Saturation 99% 09/21/2024 7:39 AM REGIONAL CLIMATE CHANGE ANALYST Inhaled Oxygen Concentration - - Weight 101.5 kg (223 lb 12.3 oz) 09/21/2024 5:00 AM REGIONAL CLIMATE CHANGE ANALYST Height 167.6 cm (5' 6 ) 08/31/2024 9:47 AM REGIONAL CLIMATE CHANGE ANALYST Body Mass Index 36.12 08/31/2024 9:47 AM REGIONAL CLIMATE CHANGE ANALYST Plan of Treatment Upcoming Encounters Date Type Department Care Team (Late st Contact Info) Description 10/26/2024 10:15 AM REGIONAL CLIMATE CHANGE ANALYST [facility]phone [facility] [address] [place] [address] Brit Gonzáles MD [address] [place] [address] 12/04/2024 10:00 AM CDT Office Visit [facility] [place] [address] Brit Gonzáles MD [address] [place] [address] Health Maintenance Due Date Last Done Comments ASCVD Statin 1955 Kidney Health Evaluation 1955 Diabetes: Retinopathy Eye Exam 1972 Zoster Vaccines (1 of 2) 2004 Pneumococcal Vaccine: 65+ Years (2 of 2 - PCV) 08/23/2013 08/23/2012, 04/17/2012 RSV Immunization or 60+ Years (1 - Risk 60-74 years 1-dose series) 2014 Annual Medicare Wellness Visit 2019 ASCVD LDL 02/01/2023 02/01/2022, 08/0 10/2016, 03/24/2016, Additional history exists Lipid Panel 02/01/2023 02/01/2022, 02/15/2013 COVID-19 Vaccine ( season) 2024 07/29/2021, 11/14/2020, 10/16/2020 Influenza Adult (#1) 2024 05/23/2021, 05/27/2020, 05/14/2016, Additional history exists PHQ-2 (Physician [place]) 08/23/2024 Hemoglobin A1C 03/01/2025 09/01/2024, 01/22, 02/16/2023, [...] and discharge planning Lifestyle Karen Diane RN Procedures Procedure Name Priority Date/Time Associated Diagnosis Comments POCT GLUCOSE - VALLECILLO DOCKED DEVICE Routine 09/21/2024 6:26 AM REGIONAL CLIMATE CHANGE ANALYST MAGNESIUM STAT 09/21/2024 5:45 AM REGIONAL CLIMATE CHANGE ANALYST BASIC METABOLIC PANEL STAT 09/21/2024 5:45 AM REGIONAL CLIMATE CHANGE ANALYST PROTHROMBIN TIME, VENOUS Routine 09/21/2024 3:33 AM REGIONAL CLIMATE CHANGE ANALYST POCT GLUCOSE - VALLECILLO DOCKED DEVICE Routine 09/20/2024 9:57 PM REGIONAL CLIMATE CHANGE ANALYST POCT GLUCOSE - VALLECILLO DOCKED DEVICE Routine 09/20/2024 3:50 PM REGIONAL CLIMATE CHANGE ANALYST POCT GLUCOSE - VALLECILLO DOCKED DEVICE Routine 09/20/2024 11:52 AM REGIONAL CLIMATE CHANGE ANALYST POCT GLUCOSE - VALLECILLO DOCKED DEVICE Routine 09/20/2024 11:26 AM REGIONAL CLIMATE CHANGE ANALYST POCT GLUCOSE - VALLECILLO DOCKED DEVICE Routine 09/20/2024 10:55 AM REGIONAL CLIMATE CHANGE ANALYST POCT GLUCOSE - VALLECILLO DOCKED DEVICE Routine 09/20/2024 6:33 AM REGIONAL CLIMATE CHANGE ANALYST BASIC METABOLIC PANEL Routine 09/20/2024 3:56 AM REGIONAL CLIMATE CHANGE ANALYST PROTHROMBIN TIME, VENOUS Routine 09/20/2024 3:56 AM REGIONAL CLIMATE CHANGE ANALYST POCT GLUCOSE - VALLECILLO DOCKED DEVICE Routine 09/19/2024 8:58 PM REGIONAL CLIMATE CHANGE ANALYST POCT GLUCOSE - VALLECILLO DOCKED DEVICE Routine 09/19/2024 4:36 PM REGIONAL CLIMATE CHANGE ANALYST POCT GLUCOSE - VALLECILLO DOCKED DEVICE Routine 09/19/2024 4:14 PM REGIONAL CLIMATE CHANGE ANALYST POCT GLUCOSE - VALLECILLO DOCKED DEVICE Routine 09/19/2024 11:30 AM REGIONAL CLIMATE CHANGE ANALYST POCT GLUCOSE - VALLECILLO DOCKED DEVICE Routine 09/19/2024 5:22 AM REGIONAL CLIMATE CHANGE ANALYST PROTHROMBIN TIME, VENOUS Routine 09/19/2024 3:42 AM REGIONAL CLIMATE CHANGE ANALYST POCT GLUCOSE - VALLECILLO DOCKED DEVICE Routine 09/18/2024 8:51 PM REGIONAL CLIMATE CHANGE ANALYST POCT GLUCOSE - VALLECILLO DOCKED DEVICE Routine 09/18/2024 4:23 PM REGIONAL CLIMATE CHANGE ANALYST POCT GLUCOSE - VALLECILLO DOCKED DEVICE Routine 09/18/2024 11:09 AM REGIONAL CLIMATE CHANGE ANALYST POCT GLUCOSE - VALLECILLO DOCKED DEVICE Routine 09/18/2024 6:04 AM REGIONAL CLIMATE CHANGE ANALYST RENAL FUNCTION PANEL Routine 09/18/2024 3:29 AM REGIONAL CLIMATE CHANGE ANALYST PROTHROMBIN TIME, VENOUS Routine 09/18/2024 3:29 AM REGIONAL CLIMATE CHANGE ANALYST POCT GLUCOSE - VALLECILLO DOCKED DEVICE Routine 09/17/2024 9:17 PM REGIONAL CLIMATE CHANGE ANALYST POCT GLUCOSE - VALLECILLO DOCKED DEVICE Routine 09/17/2024 4:44 PM REGIONAL CLIMATE CHANGE ANALYST POCT GLUCOSE - VALLECILLO DOCKED DEVICE Routine 09/17/2024 11:06 AM REGIONAL CLIMATE CHANGE ANALYST POCT GLUCOSE - VALLECILLO DOCKED DEVICE Routine 09/17/2024 6:16 AM REGIONAL CLIMATE CHANGE ANALYST PROTHROMBIN TIME, VENOUS Routine 09/17/2024 5:57 AM REGIONAL CLIMATE CHANGE ANALYST BLOOD GAS, VENOUS Routine 09/17/2024 3:4 3 AM REGIONAL CLIMATE CHANGE ANALYST PHOSPHORUS, INORGANIC PHOSPHATE Routine 09/17/2024 3:43 AM REGIONAL CLIMATE CHANGE ANALYST MAGNESIUM Routine 09/17/2024 3:43 AM REGIONAL CLIMATE CHANGE ANALYST POCT GLUCOSE - VALLECILLO DOCKED DEVICE Routine 09/16/2024 9:35 PM REGIONAL CLIMATE CHANGE ANALYST POCT GLUCOSE - VALLECILLO DOCKED DEVICE Routine 09/16/2024 3:46 PM REGIONAL CLIMATE CHANGE ANALYST POCT GLUCOSE - VALLECILLO DOCKED DEVICE Routine 09/16/2024 10:53 AM REGIONAL CLIMATE CHANGE ANALYST POCT GLUCOSE - VALLECILLO DOCKED DEVICE Routine 09/16/2024 6:35 AM REGIONAL CLIMATE CHANGE ANALYST PROTHROMBIN TIME, VENOUS Routine 09/16/2024 4:21 AM REGIONAL CLIMATE CHANGE ANALYST BLOOD GAS, VENOUS Routine 09/16/2024 4:2 1 AM REGIONAL CLIMATE CHANGE ANALYST PHOSPHORUS, INORGANIC PHOSPHATE Routine 09/16/2024 4:21 AM REGIONAL CLIMATE CHANGE ANALYST MAGNESIUM Routine 09/16/2024 4:21 AM REGIONAL CLIMATE CHANGE ANALYST POCT GLUCOSE - VALLECILLO DOCKED DEVICE Routine 09/15/2024 9:22 PM REGIONAL CLIMATE CHANGE ANALYST POCT GLUCOSE - VALLECILLO DOCKED DEVICE Routine 09/15/2024 4:46 PM REGIONAL CLIMATE CHANGE ANALYST HOME O2 EVAL Routine 09/15/2024 12:42 PM REGIONAL CLIMATE CHANGE ANALYST POCT GLUCOSE - VALLECILLO DOCKED DEVICE Routine 09/15/2024 10:45 AM REGIONAL CLIMATE CHANGE ANALYST BEDSIDE SPIROMETRY Routine 09/15/2024 9: 45 AM REGIONAL CLIMATE CHANGE ANALYST POCT GLUCOSE - VALLECILLO DOCKED DEVICE Routine 09/15/2024 8:22 AM REGIONAL CLIMATE CHANGE ANALYST POCT GLUCOSE - VALLECILLO DOCKED DEVICE Routine 09/15/2024 7:20 AM REGIONAL CLIMATE CHANGE ANALYST POCT GLUCOSE - VALLECILLO DOCKED DEVICE Routine 09/15/2024 6:50 AM REGIONAL CLIMATE CHANGE ANALYST POCT GLUCOSE - VALLECILLO DOCKED DEVICE Routine 09/15/2024 6:17 AM REGIONAL CLIMATE CHANGE ANALYST CBC, AUTO, NO DIFF Routine 09/15/2024 5: 04 AM REGIONAL CLIMATE CHANGE ANALYST BASIC METABOLIC PANEL Routine 09/15/2024 5:04 AM REGIONAL CLIMATE CHANGE ANALYST PROTHROMBIN TIME, VENOUS Routine 09/15/2024 5:04 AM REGIONAL CLIMATE CHANGE ANALYST BLOOD GAS, VENOUS Routine 09/15/2024 5:0 4 AM REGIONAL CLIMATE CHANGE ANALYST PHOSPHORUS, INORGANIC PHOSPHATE Routine 09/15/2024 5:04 AM REGIONAL CLIMATE CHANGE ANALYST MAGNESIUM Routine 09/15/2024 5:04 AM REGIONAL CLIMATE CHANGE ANALYST POCT GLUCOSE - VALLECILLO DOCKED DEVICE Routine 09/14/2024 8:48 PM REGIONAL CLIMATE CHANGE ANALYST POCT GLUCOSE - VALLECILLO DOCKED DEVICE Routine 09/14/2024 5:23 PM REGIONAL CLIMATE CHANGE ANALYST POCT GLUCOSE - VALLECILLO DOCKED DEVICE Routine 09/14/2024 11:09 AM REGIONAL CLIMATE CHANGE ANALYST PROTHROMBIN TIME, VENOUS Routine 09/14/2024 9:49 AM REGIONAL CLIMATE CHANGE ANALYST POCT GLUCOSE - VALLECILLO DOCKED DEVICE Routine 09/14/2024 5:33 AM REGIONAL CLIMATE CHANGE ANALYST CBC W/DIFF AUTOMATED Routine 09/14/2024 3:48 AM REGIONAL CLIMATE CHANGE ANALYST COMPREHENSIVE METABOLIC PANEL Routine 09/14/2024 3:48 AM REGIONAL CLIMATE CHANGE ANALYST BLOOD GAS, VENOUS Routine 09/14/2024 3:4 8 AM REGIONAL CLIMATE CHANGE ANALYST PHOSPHORUS, INORGANIC PHOSPHATE Routine 09/14/2024 3:48 AM REGIONAL CLIMATE CHANGE ANALYST MAGNESIUM Routine 09/14/2024 3:48 AM REGIONAL CLIMATE CHANGE ANALYST POCT GLUCOSE - VALLECILLO DOCKED DEVICE Routine 09/13/2024 9:16 PM REGIONAL CLIMATE CHANGE ANALYST POCT GLUCOSE - VALLECILLO DOCKED DEVICE Routine 09/13/2024 3:52 PM REGIONAL CLIMATE CHANGE ANALYST BLOOD GAS, VENOUS TIMED 09/13/2024 1:0 0 PM REGIONAL CLIMATE CHANGE ANALYST POCT GLUCOSE - VALLECILLO DOCKED DEVICE Routine 09/13/2024 11:30 AM REGIONAL CLIMATE CHANGE ANALYST POCT GLUCOSE - VALLECILLO DOCKED DEVICE Routine 09/13/2024 6:33 AM REGIONAL CLIMATE CHANGE ANALYST BLOOD GAS, VENOUS Routine 09/13/2024 4:5 8 AM REGIONAL CLIMATE CHANGE ANALYST PHOSPHORUS, INORGANIC PHOSPHATE Routine 09/13/2024 4:58 AM REGIONAL CLIMATE CHANGE ANALYST PROTHROMBIN TIME, VENOUS Routine 09/13/2024 4:58 AM REGIONAL CLIMATE CHANGE ANALYST MAGNESIUM Routine 09/13/2024 4:58 AM REGIONAL CLIMATE CHANGE ANALYST POCT GLUCOSE - VALLECILLO DOCKED DEVICE Routine 09/12/2024 9:25 PM REGIONAL CLIMATE CHANGE ANALYST POCT GLUCOSE - VALLECILLO DOCKED DEVICE Routine 09/12/2024 5:30 PM REGIONAL CLIMATE CHANGE ANALYST POCT GLUCOSE - VALLECILLO DOCKED DEVICE Routine 09/12/2024 4:19 PM REGIONAL CLIMATE CHANGE ANALYST POCT GLUCOSE - VALLECILLO DOCKED DEVICE Routine 09/12/2024 11:32 AM REGIONAL CLIMATE CHANGE ANALYST POCT GLUCOSE - VALLECILLO DOCKED DEVICE Routine 09/12/2024 6:27 AM REGIONAL CLIMATE CHANGE ANALYST CBC W/DIFF AUTOMATED Routine 09/12/2024 3:12 AM REGIONAL CLIMATE CHANGE ANALYST BASIC METABOLIC PANEL Routine 09/12/2024 3:12 AM REGIONAL CLIMATE CHANGE ANALYST BLOOD GAS, VENOUS Routine 09/12/2024 3:1 2 AM REGIONAL CLIMATE CHANGE ANALYST PHOSPHORUS, INORGANIC PHOSPHATE Routine 09/12/2024 3:12 AM REGIONAL CLIMATE CHANGE ANALYST PROTHROMBIN TIME, VENOUS Routine 09/12/2024 3:12 AM REGIONAL CLIMATE CHANGE ANALYST MAGNESIUM Routine 09/12/2024 3:12 AM REGIONAL CLIMATE CHANGE ANALYST POCT GLUCOSE - VALLECILLO DOCKED DEVICE Routine 09/11/2024 8:30 PM REGIONAL CLIMATE CHANGE ANALYST POCT GLUCOSE - VALLECILLO DOCKED DEVICE Routine 09/11/2024 4:08 PM REGIONAL CLIMATE CHANGE ANALYST POCT GLUCOSE - VALLECILLO DOCKED DEVICE Routine 09/11/2024 12:21 PM REGIONAL CLIMATE CHANGE ANALYST ECG 12-LEAD STAT 09/11/2024 5:38 AM REGIONAL CLIMATE CHANGE ANALYST POCT GLUCOSE - VALLECILLO DOCKED DEVICE Routine 09/11/2024 5:32 AM REGIONAL CLIMATE CHANGE ANALYST COMPREHENSIVE METABOLIC PANEL Routine 09/11/2024 3:58 AM REGIONAL CLIMATE CHANGE ANALYST CBC W/DIFF AUTOMATED Routine 09/11/2024 3:58 AM REGIONAL CLIMATE CHANGE ANALYST BLOOD GAS, VENOUS Routine 09/11/2024 3:5 8 AM REGIONAL CLIMATE CHANGE ANALYST PHOSPHORUS, INORGANIC PHOSPHATE Routine 09/11/2024 3:58 AM REGIONAL CLIMATE CHANGE ANALYST PROTHROMBIN TIME, VENOUS Routine 09/11/2024 3:58 AM REGIONAL CLIMATE CHANGE ANALYST MAGNESIUM Routine 09/11/2024 3:58 AM REGIONAL CLIMATE CHANGE ANALYST POCT GLUCOSE - VALLECILLO DOCKED DEVICE Routine 09/10/2024 9:08 PM REGIONAL CLIMATE CHANGE ANALYST POCT GLUCOSE - VALLECILLO DOCKED DEVICE Routine 09/10/2024 4:09 PM REGIONAL CLIMATE CHANGE ANALYST POCT GLUCOSE - VALLECILLO DOCKED DEVICE Routine 09/10/2024 12:03 PM REGIONAL CLIMATE CHANGE ANALYST POCT GLUCOSE - VALLECILLO DOCKED DEVICE Routine 09/10/2024 6:16 AM REGIONAL CLIMATE CHANGE ANALYST BASIC METABOLIC PANEL Routine 09/10/2024 5:49 AM REGIONAL CLIMATE CHANGE ANALYST BLOOD GAS, VENOUS Routine 09/10/2024 5:4 9 AM REGIONAL CLIMATE CHANGE ANALYST PHOSPHORUS, INORGANIC PHOSPHATE Routine 09/10/2024 5:49 AM REGIONAL CLIMATE CHANGE ANALYST PROTHROMBIN TIME, VENOUS Routine 09/10/2024 5:49 AM REGIONAL CLIMATE CHANGE ANALYST MAGNESIUM Routine 09/10/2024 5:49 AM REGIONAL CLIMATE CHANGE ANALYST CBC W/DIFF AUTOMATED Routine 09/10/2024 5:47 AM REGIONAL CLIMATE CHANGE ANALYST POCT GLUCOSE - VALLECILLO DOCKED DEVICE Routine 09/09/2024 10:02 PM REGIONAL CLIMATE CHANGE ANALYST POCT GLUCOSE - VALLECILLO DOCKED DEVICE Routine 09/09/2024 3:51 PM REGIONAL CLIMATE CHANGE ANALYST POCT GLUCOSE - VALLECILLO DOCKED DEVICE Routine 09/09/2024 1:00 PM REGIONAL CLIMATE CHANGE ANALYST BLOOD GAS, VENOUS TIMED 09/09/2024 12:50 PM REGIONAL CLIMATE CHANGE ANALYST CBC W/DIFF AUTOMATED Routine 09/09/2024 6:10 AM REGIONAL CLIMATE CHANGE ANALYST COMPREHENSIVE METABOLIC PANEL Routine 09/09/2024 6:10 AM REGIONAL CLIMATE CHANGE ANALYST BLOOD GAS, VENOUS Routine 09/09/2024 6:1 0 AM REGIONAL CLIMATE CHANGE ANALYST PHOSPHORUS, INORGANIC PHOSPHATE Routine 09/09/2024 6:10 AM REGIONAL CLIMATE CHANGE ANALYST PROTHROMBIN TIME, VENOUS Routine 09/09/2024 6:10 AM REGIONAL CLIMATE CHANGE ANALYST MAGNESIUM Routine 09/09/2024 6:10 AM REGIONAL CLIMATE CHANGE ANALYST XR CHEST PORTABLE Routine 09/09/2024 6:0 2 AM REGIONAL CLIMATE CHANGE ANALYST POCT GLUCOSE - VALLECILLO DOCKED DEVICE Routine 09/09/2024 5:52 AM REGIONAL CLIMATE CHANGE ANALYST POCT GLUCOSE - VALLECILLO DOCKED DEVICE Routine 09/08/2024 9:27 PM REGIONAL CLIMATE CHANGE ANALYST POCT GLUCOSE - VALLECILLO DOCKED DEVICE Routine 09/08/2024 4:51 PM REGIONAL CLIMATE CHANGE ANALYST POCT GLUCOSE - VALLECILLO DOCKED DEVICE Routine 09/08/2024 11:05 AM REGIONAL CLIMATE CHANGE ANALYST VANCOMYCIN TIMED 09/08/2024 10:37 AM REGIONAL CLIMATE CHANGE ANALYST BLOOD GAS, VENOUS Routine 09/08/2024 4:5 3 AM REGIONAL CLIMATE CHANGE ANALYST PHOSPHORUS, INORGANIC PHOSPHATE Routine 09/08/2024 4:53 AM REGIONAL CLIMATE CHANGE ANALYST COMPREHENSIVE METABOLIC PANEL Routine 09/08/2024 4:53 AM REGIONAL CLIMATE CHANGE ANALYST PROTHROMBIN TIME, VENOUS Routine 09/08/2024 4:53 AM REGIONAL CLIMATE CHANGE ANALYST CBC W/DIFF AUTOMATED Routine 09/08/2024 4:53 AM REGIONAL CLIMATE CHANGE ANALYST MAGNESIUM Routine 09/08/2024 4:53 AM REGIONAL CLIMATE CHANGE ANALYST POCT GLUCOSE - VALLECILLO DOCKED DEVICE Routine 09/08/2024 4:10 AM REGIONAL CLIMATE CHANGE ANALYST POCT GLUCOSE - VALLECILLO DOCKED DEVICE Routine 09/08/2024 1:05 AM REGIONAL CLIMATE CHANGE ANALYST POCT GLUCOSE - VALLECILLO DOCKED DEVICE Routine 09/07/2024 9:39 PM REGIONAL CLIMATE CHANGE ANALYST POCT GLUCOSE - VALLECILLO DOCKED DEVICE Routine 09/07/2024 5:36 PM REGIONAL CLIMATE CHANGE ANALYST XR SPEECH SWALLOW SJS ONLY Routine 09/07/2024 1:50 PM REGIONAL CLIMATE CHANGE ANALYST POCT GLUCOSE - VALLECILLO DOCKED DEVICE Routine 09/07/2024 11:36 AM REGIONAL CLIMATE CHANGE ANALYST POCT GLUCOSE - VALLECILLO DOCKED DEVICE Routine 09/07/2024 8:15 AM REGIONAL CLIMATE CHANGE ANALYST POCT ACUTE VENOUS PANEL Routine 09/07/2024 3:47 AM REGIONAL CLIMATE CHANGE ANALYST PHOSPHORUS, INORGANIC PHOSPHATE Routine 09/07/2024 3:42 AM REGIONAL CLIMATE CHANGE ANALYST COMPREHENSIVE METABOLIC PANEL Routine 09/07/2024 3:42 AM REGIONAL CLIMATE CHANGE ANALYST PROTHROMBIN TIME, VENOUS Routine 09/07/2024 3:42 AM REGIONAL CLIMATE CHANGE ANALYST CBC W/DIFF AUTOMATED Routine 09/07/2024 3:42 AM REGIONAL CLIMATE CHANGE ANALYST MAGNESIUM Routine 09/07/2024 3:42 AM REGIONAL CLIMATE CHANGE ANALYST POCT GLUCOSE - VALLECILLO DOCKED DEVICE Routine 09/06/2024 11:44 PM REGIONAL CLIMATE CHANGE ANALYST POCT GLUCOSE - VALLECILLO DOCKED DEVICE Routine 09/06/2024 8:47 PM REGIONAL CLIMATE CHANGE ANALYST BASIC METABOLIC PANEL TIMED 09/06/2024 8:30 PM REGIONAL CLIMATE CHANGE ANALYST POCT GLUCOSE - VALLECILLO DOCKED DEVICE Routine 09/06/2024 4:52 PM REGIONAL CLIMATE CHANGE ANALYST POCT GLUCOSE - VALLECILLO DOCKED DEVICE Routine 09/06/2024 3:54 PM REGIONAL CLIMATE CHANGE ANALYST VANCOMYCIN TIMED 09/06/2024 12:49 PM REGIONAL CLIMATE CHANGE ANALYST BASIC METABOLIC PANEL TIMED 09/06/2024 12:49 PM REGIONAL CLIMATE CHANGE ANALYST POCT GLUCOSE - VALLECILLO DOCKED DEVICE Routine 09/06/2024 11:35 AM REGIONAL CLIMATE CHANGE ANALYST POCT GLUCOSE - VALLECILLO DOCKED DEVICE Routine 09/06/2024 8:59 AM REGIONAL CLIMATE CHANGE ANALYST PROTHROMBIN TIME, VENOUS STAT 09/06/2024 8:30 AM REGIONAL CLIMATE CHANGE ANALYST XR CHEST PORTABLE Routine 09/06/2024 5:2 1 AM REGIONAL CLIMATE CHANGE ANALYST POCT ACUTE VENOUS PANEL Routine 09/06/2024 4:41 AM REGIONAL CLIMATE CHANGE ANALYST POCT GLUCOSE - VALLECILLO DOCKED DEVICE Routine 09/06/2024 4:37 AM REGIONAL CLIMATE CHANGE ANALYST CBC W/DIFF AUTOMATED Routine 09/06/2024 4:30 AM REGIONAL CLIMATE CHANGE ANALYST PHOSPHORUS, INORGANIC PHOSPHATE Routine 09/06/2024 4:30 AM REGIONAL CLIMATE CHANGE ANALYST MAGNESIUM Routine 09/06/2024 4:30 AM REGIONAL CLIMATE CHANGE ANALYST COMPREHENSIVE METABOLIC PANEL Routine 09/06/2024 4:30 AM REGIONAL CLIMATE CHANGE ANALYST POCT GLUCOSE - VALLECILLO DOCKED DEVICE Routine 09/06/2024 12:20 AM REGIONAL CLIMATE CHANGE ANALYST POCT GLUCOSE - VALLECILLO DOCKED DEVICE Routine 09/05/2024 8:08 PM REGIONAL CLIMATE CHANGE ANALYST BASIC METABOLIC PANEL TIMED 09/05/2024 8:00 PM REGIONAL CLIMATE CHANGE ANALYST POCT GLUCOSE - VALLECILLO DOCKED DEVICE Routine 09/05/2024 5:05 PM REGIONAL CLIMATE CHANGE ANALYST POCT ACUTE VENOUS PANEL Routine 09/05/2024 11:17 AM REGIONAL CLIMATE CHANGE ANALYST POCT GLUCOSE - VALLECILLO DOCKED DEVICE Routine 09/05/2024 11:15 AM REGIONAL CLIMATE CHANGE ANALYST BASIC METABOLIC PANEL TIMED 09/05/2024 11:10 AM REGIONAL CLIMATE CHANGE ANALYST VANCOMYCIN TIMED 09/05/2024 11:10 AM REGIONAL CLIMATE CHANGE ANALYST PROTHROMBIN TIME, VENOUS STAT 09/05/2024 8:50 AM REGIONAL CLIMATE CHANGE ANALYST POCT GLUCOSE - VALLECILLO DOCKED DEVICE Routine 09/05/2024 8:32 AM REGIONAL CLIMATE CHANGE ANALYST CULTURE RESPIRATORY W/ GRAM STAIN Nurse Collected Priority 09/05/2024 7:40 AM REGIONAL CLIMATE CHANGE ANALYST XR CHEST PORTABLE Routine 09/05/2024 4:5 8 AM REGIONAL CLIMATE CHANGE ANALYST POCT ACUTE VENOUS PANEL Routine 09/05/2024 4:12 AM REGIONAL CLIMATE CHANGE ANALYST POCT GLUCOSE - VALLECILLO DOCKED DEVICE Routine 09/05/2024 4:11 AM REGIONAL CLIMATE CHANGE ANALYST PHOSPHORUS, INORGANIC PHOSPHATE Routine 09/05/2024 4:00 AM REGIONAL CLIMATE CHANGE ANALYST MAGNESIUM Routine 09/05/2024 4:00 AM REGIONAL CLIMATE CHANGE ANALYST COMPREHENSIVE METABOLIC PANEL Routine 09/05/2024 4:00 AM REGIONAL CLIMATE CHANGE ANALYST CBC W/DIFF AUTOMATED Routine 09/05/2024 4:00 AM REGIONAL CLIMATE CHANGE ANALYST POCT GLUCOSE - VALLECILLO DOCKED DEVICE Routine 09/04/2024 11:40 PM REGIONAL CLIMATE CHANGE ANALYST POCT GLUCOSE - VALLECILLO DOCKED DEVICE Routine 09/04/2024 7:52 PM REGIONAL CLIMATE CHANGE ANALYST POCT GLUCOSE - VALLECILLO DOCKED DEVICE Routine 09/04/2024 3:43 PM REGIONAL CLIMATE CHANGE ANALYST XR CHEST PORTABLE STAT 09/04/2024 11:21 AM REGIONAL CLIMATE CHANGE ANALYST POCT GLUCOSE - VALLECILLO DOCKED DEVICE Routine 09/04/2024 11:20 AM REGIONAL CLIMATE CHANGE ANALYST USV VAST TEAM PICC INSERT >5YR Today 09/04/2024 11:10 AM REGIONAL CLIMATE CHANGE ANALYST USV MARIA ALEJANDRA DUPLEX LOW EXT ELZA RACHELE 09/04/2024 9:03 AM REGIONAL CLIMATE CHANGE ANALYST TROPONIN, QUANT TIMED 09/04/2024 8:00 AM REGIONAL CLIMATE CHANGE ANALYST HEPARIN, ANTI XA, UFH TIMED 09/04/2024 6:17 AM REGIONAL CLIMATE CHANGE ANALYST POCT GLUCOSE - VALLECILLO DOCKED DEVICE Routine 09/04/2024 6:13 AM REGIONAL CLIMATE CHANGE ANALYST XR CHEST PORTABLE Routine 09/04/2024 5:3 5 AM REGIONAL CLIMATE CHANGE ANALYST POCT ACUTE VENOUS PANEL Routine 09/04/2024 4:18 AM REGIONAL CLIMATE CHANGE ANALYST HEPARIN, ANTI XA, UFH TIMED 09/04/2024 4:15 AM REGIONAL CLIMATE CHANGE ANALYST PROTHROMBIN TIME, VENOUS Routine 09/04/2024 4:15 AM REGIONAL CLIMATE CHANGE ANALYST PHOSPHORUS, INORGANIC PHOSPHATE Routine 09/04/2024 4:15 AM REGIONAL CLIMATE CHANGE ANALYST MAGNESIUM Routine 09/04/2024 4:15 AM REGIONAL CLIMATE CHANGE ANALYST COMPREHENSIVE METABOLIC PANEL Routine 09/04/2024 4:15 AM REGIONAL CLIMATE CHANGE ANALYST CBC W/DIFF AUTOMATED Routine 09/04/2024 4:15 AM REGIONAL CLIMATE CHANGE ANALYST TROPONIN, QUANT Routine 09/04/2024 4:15 AM REGIONAL CLIMATE CHANGE ANALYST POCT GLUCOSE - VALLECILLO DOCKED DEVICE Routine 09/04/2024 12:08 AM REGIONAL CLIMATE CHANGE ANALYST XR CHEST PORTABLE STAT 09/03/2024 9:2 5 PM REGIONAL CLIMATE CHANGE ANALYST POCT GLUCOSE - VALLECILLO DOCKED DEVICE Routine 09/03/2024 9:23 PM REGIONAL CLIMATE CHANGE ANALYST INTUBATION Routine 09/03/2024 9:08 PM REGIONAL CLIMATE CHANGE ANALYST PHOSPHORUS, INORGANIC PHOSPHATE Routine 09/03/2024 8:29 PM REGIONAL CLIMATE CHANGE ANALYST BLOOD GAS, ARTERIAL LAB Routine 09/03/2024 8:29 PM REGIONAL CLIMATE CHANGE ANALYST TROPONIN, QUANT TIMED 09/03/2024 8:29 PM REGIONAL CLIMATE CHANGE ANALYST LACTIC ACID STAT 09/03/2024 8:29 PM REGIONAL CLIMATE CHANGE ANALYST MAGNESIUM STAT 09/03/2024 8:29 PM REGIONAL CLIMATE CHANGE ANALYST PRO-BRAIN NATRIURETIC PEPTIDE STAT 09/03/2024 8:29 PM REGIONAL CLIMATE CHANGE ANALYST COMPREHENSIVE METABOLIC PANEL STAT 09/03/2024 8:29 PM REGIONAL CLIMATE CHANGE ANALYST CBC W/DIFF AUTOMATED STAT 09/03/2024 8:29 PM REGIONAL CLIMATE CHANGE ANALYST POCT ACUTE ARTERIAL PANEL Routine 09/03/2024 8:28 PM REGIONAL CLIMATE CHANGE ANALYST XR CHEST PORTABLE STAT 09/03/2024 8:2 2 PM REGIONAL CLIMATE CHANGE ANALYST ECG 12-LEAD STAT 09/03/2024 8:13 PM REGIONAL CLIMATE CHANGE ANALYST POCT GLUCOSE - VALLECILLO DOCKED DEVICE Routine 09/03/2024 8:04 PM REGIONAL CLIMATE CHANGE ANALYST POCT GLUCOSE - VALLECILLO DOCKED DEVICE Routine 09/03/2024 5:22 PM REGIONAL CLIMATE CHANGE ANALYST POCT GLUCOSE - VALLECILLO DOCKED DEVICE Routine 09/03/2024 4:03 PM REGIONAL CLIMATE CHANGE ANALYST CULTURE, BACTERIA, BLOOD Routine 09/03/2024 12:23 PM REGIONAL CLIMATE CHANGE ANALYST POCT GLUCOSE - VALLECILLO DOCKED DEVICE Routine 09/03/2024 10:55 AM REGIONAL CLIMATE CHANGE ANALYST XR CHEST PORTABLE Today 09/03/2024 9:3 5 AM REGIONAL CLIMATE CHANGE ANALYST BLOOD GAS, ARTERIAL LAB Routine 09/03/2024 9:09 AM REGIONAL CLIMATE CHANGE ANALYST COMPREHENSIVE METABOLIC PANEL Routine 09/03/2024 5:06 AM REGIONAL CLIMATE CHANGE ANALYST PROTHROMBIN TIME, VENOUS Routine 09/03/2024 5:06 AM REGIONAL CLIMATE CHANGE ANALYST CBC W/DIFF AUTOMATED Routine 09/03/2024 5:06 AM REGIONAL CLIMATE CHANGE ANALYST POCT GLUCOSE - VALLECILLO DOCKED DEVICE Routine 09/03/2024 4:44 AM REGIONAL CLIMATE CHANGE ANALYST PROTHROMBIN TIME, VENOUS STAT 09/03/2024 12:50 AM REGIONAL CLIMATE CHANGE ANALYST HEPARIN, ANTI XA, UFH STAT 09/03/2024 12:50 AM REGIONAL CLIMATE CHANGE ANALYST RENAL FUNCTION PANEL Routine 09/02/2024 11:25 PM REGIONAL CLIMATE CHANGE ANALYST POCT GLUCOSE - VALLECILLO DOCKED DEVICE Routine 09/02/2024 8:47 PM REGIONAL CLIMATE CHANGE ANALYST POCT GLUCOSE - VALLECILLO DOCKED DEVICE Routine 09/02/2024 4:07 PM REGIONAL CLIMATE CHANGE ANALYST POCT GLUCOSE - VALLECILLO DOCKED DEVICE Routine 09/02/2024 11:56 AM REGIONAL CLIMATE CHANGE ANALYST COMPREHENSIVE METABOLIC PANEL Routine 09/02/2024 7:41 AM REGIONAL CLIMATE CHANGE ANALYST PROTHROMBIN TIME, VENOUS Routine 09/02/2024 7:41 AM REGIONAL CLIMATE CHANGE ANALYST CBC W/DIFF AUTOMATED Routine 09/02/2024 7:41 AM REGIONAL CLIMATE CHANGE ANALYST POCT GLUCOSE - VALLECILLO DOCKED DEVICE Routine 09/02/2024 6:26 AM REGIONAL CLIMATE CHANGE ANALYST POCT GLUCOSE - VALLECILLO DOCKED DEVICE Routine 09/02/2024 12:59 AM REGIONAL CLIMATE CHANGE ANALYST RENAL FUNCTION PANEL Routine 09/02/2024 12:30 AM REGIONAL CLIMATE CHANGE ANALYST POCT GLUCOSE - VALLECILLO DOCKED DEVICE Routine 09/01/2024 9:07 PM REGIONAL CLIMATE CHANGE ANALYST POCT GLUCOSE - VALLECILLO DOCKED DEVICE Routine 09/01/2024 4:14 PM REGIONAL CLIMATE CHANGE ANALYST POCT GLUCOSE - VALLECILLO DOCKED DEVICE Routine 09/01/2024 11:42 AM REGIONAL CLIMATE CHANGE ANALYST URINE BACTERIA CULTURE Nurse Collected Priority 09/01/2024 11:10 AM REGIONAL CLIMATE CHANGE ANALYST XR SPEECH SWALLOW SJS ONLY Routine 09/01/2024 9:59 AM REGIONAL CLIMATE CHANGE ANALYST ANTI-GBM Routine 09/01/2024 8:19 AM REGIONAL CLIMATE CHANGE ANALYST ANCA VASCULITIS PANEL Routine 09/01/2024 8:19 AM REGIONAL CLIMATE CHANGE ANALYST THYROID STIM HORMONE TSH Routine 09/01/2024 8:19 AM REGIONAL CLIMATE CHANGE ANALYST HEMOGLOBIN, GLYCOSYLATED Routine 09/01/2024 8:19 AM REGIONAL CLIMATE CHANGE ANALYST MAGNESIUM Routine 09/01/2024 8:19 AM REGIONAL CLIMATE CHANGE ANALYST COMPREHENSIVE METABOLIC PANEL Routine 09/01/2024 8:19 AM REGIONAL CLIMATE CHANGE ANALYST PROTHROMBIN TIME, VENOUS Routine 09/01/2024 8:19 AM REGIONAL CLIMATE CHANGE ANALYST CBC W/DIFF AUTOMATED Routine 09/01/2024 8:19 AM REGIONAL CLIMATE CHANGE ANALYST POCT GLUCOSE - VALLECILLO DOCKED DEVICE Routine 09/01/2024 6:41 AM REGIONAL CLIMATE CHANGE ANALYST POCT GLUCOSE - VALLECILLO DOCKED DEVICE Routine 09/01/2024 12:55 AM REGIONAL CLIMATE CHANGE ANALYST US [employer] Today 10:20 PM REGIONAL CLIMATE CHANGE ANALYST POCT GLUCOSE - VALLECILLO DOCKED DEVICE Routine 08/31/2024 6:34 PM REGIONAL CLIMATE CHANGE ANALYST CREATININE URINE RANDOM Nurse Collected Priority 08/31/2024 5:12 PM REGIONAL CLIMATE CHANGE ANALYST SODIUM URINE RANDOM Nurse Collected Priority 08/31/2024 5:12 PM REGIONAL CLIMATE CHANGE ANALYST HC URINALYSIS AUTO W/MICRO Nurse Collected Priority 08/31/2024 5:12 PM REGIONAL CLIMATE CHANGE ANALYST USE ECHOCARDIOGRAM W CON Today 08/31/2024 2:02 PM REGIONAL CLIMATE CHANGE ANALYST POCT GLUCOSE - VALLECILLO DOCKED DEVICE Routine 08/31/2024 1:02 PM REGIONAL CLIMATE CHANGE ANALYST ECG 12-LEAD Routine 08/31/2024 12:13 PM REGIONAL CLIMATE CHANGE ANALYST CK (CPK) Routine 08/31/2024 10:35 AM REGIONAL CLIMATE CHANGE ANALYST PROTHROMBIN TIME, VENOUS Routine 08/31/2024 10:35 AM REGIONAL CLIMATE CHANGE ANALYST PRO-BRAIN NATRIURETIC PEPTIDE Routine 08/31/2024 10:35 AM REGIONAL CLIMATE CHANGE ANALYST COMPREHENSIVE METABOLIC PANEL STAT 08/31/2024 10:35 AM REGIONAL CLIMATE CHANGE ANALYST CBC W/DIFF AUTOMATED STAT 08/31/2024 10:35 AM REGIONAL CLIMATE CHANGE ANALYST CULTURE, BACTERIA, BLOOD Routine 08/31/2024 10:34 AM REGIONAL CLIMATE CHANGE ANALYST XR CHEST PORTABLE Today 08/31/2024 10:16 AM REGIONAL CLIMATE CHANGE ANALYST POCT GLUCOSE - VALLECILLO DOCKED DEVICE Routine 08/31/2024 8:56 AM REGIONAL CLIMATE CHANGE ANALYST POCT GLUCOSE - VALLECILLO DOCKED DEVICE Routine 08/03/2024 11:14 AM REGIONAL CLIMATE CHANGE ANALYST POCT GLUCOSE - VALLECILLO DOCKED DEVICE Routine 08/03/2024 6:56 AM REGIONAL CLIMATE CHANGE ANALYST POCT GLUCOSE - VALLECILLO DOCKED DEVICE Routine 08/03/2024 6:40 AM REGIONAL CLIMATE CHANGE ANALYST POCT GLUCOSE - VALLECILLO DOCKED DEVICE Routine 08/03/2024 6:19 AM REGIONAL CLIMATE CHANGE ANALYST COMPREHENSIVE METABOLIC PANEL Routine 08/03/2024 5:46 AM REGIONAL CLIMATE CHANGE ANALYST CBC W/DIFF AUTOMATED Routine 08/03/2024 5:46 AM REGIONAL CLIMATE CHANGE ANALYST PROTHROMBIN TIME, VENOUS Routine 08/03/2024 5:46 AM REGIONAL CLIMATE CHANGE ANALYST POCT GLUCOSE - VALLECILLO DOCKED DEVICE Routine 08/02/2024 8:14 PM REGIONAL CLIMATE CHANGE ANALYST POCT GLUCOSE - VALLECILLO DOCKED DEVICE Routine 08/02/2024 4:10 PM REGIONAL CLIMATE CHANGE ANALYST POCT GLUCOSE - VALLECILLO DOCKED DEVICE Routine 08/02/2024 10:59 AM REGIONAL CLIMATE CHANGE ANALYST POCT GLUCOSE - VALLECILLO DOCKED DEVICE Routine 08/02/2024 6:20 AM REGIONAL CLIMATE CHANGE ANALYST COMPREHENSIVE METABOLIC PANEL Routine 08/02/2024 5:13 AM REGIONAL CLIMATE CHANGE ANALYST CBC W/DIFF AUTOMATED Routine 08/02/2024 5:13 AM REGIONAL CLIMATE CHANGE ANALYST PROTHROMBIN TIME, VENOUS Routine 08/02/2024 5:13 AM REGIONAL CLIMATE CHANGE ANALYST POCT GLUCOSE - VALLECILLO DOCKED DEVICE Routine 08/01/2024 8:50 PM REGIONAL CLIMATE CHANGE ANALYST POCT GLUCOSE - VALLECILLO DOCKED DEVICE Routine 08/01/2024 6:28 PM REGIONAL CLIMATE CHANGE ANALYST POCT GLUCOSE - VALLECILLO DOCKED DEVICE Routine 08/01/2024 5:09 PM REGIONAL CLIMATE CHANGE ANALYST POCT GLUCOSE - VALLECILLO DOCKED DEVICE Routine 08/01/2024 11:53 AM REGIONAL CLIMATE CHANGE ANALYST POCT GLUCOSE - VALLECILLO DOCKED DEVICE Routine 08/01/2024 7:39 AM REGIONAL CLIMATE CHANGE ANALYST POCT GLUCOSE - VALLECILLO DOCKED DEVICE Routine 08/01/2024 6:56 AM REGIONAL CLIMATE CHANGE ANALYST POCT GLUCOSE - VALLECILLO DOCKED DEVICE Routine 08/01/2024 6:35 AM REGIONAL CLIMATE CHANGE ANALYST PROTHROMBIN TIME, VENOUS STAT 08/01/2024 5:24 AM REGIONAL CLIMATE CHANGE ANALYST BASIC METABOLIC PANEL Routine 08/01/2024 5:24 AM REGIONAL CLIMATE CHANGE ANALYST CBC W/DIFF AUTOMATED STAT 08/01/2024 5:24 AM REGIONAL CLIMATE CHANGE ANALYST POCT GLUCOSE - VALLECILLO DOCKED DEVICE Routine 07/31/2024 8:41 PM REGIONAL CLIMATE CHANGE ANALYST POCT GLUCOSE - VALLECILLO DOCKED DEVICE Routine 07/31/2024 6:13 PM REGIONAL CLIMATE CHANGE ANALYST URINE BACTERIA CULTURE STAT 4:57 PM REGIONAL CLIMATE CHANGE ANALYST HC URINALYSIS AUTO W/MICRO STAT 07/31/2024 4:57 PM REGIONAL CLIMATE CHANGE ANALYST XR CHEST PORTABLE STAT 07/31/2024 3:55 PM REGIONAL CLIMATE CHANGE ANALYST CULTURE, BACTERIA, BLOOD STAT 07/31/2024 3:43 PM REGIONAL CLIMATE CHANGE ANALYST PRO-BRAIN NATRIURETIC PEPTIDE STAT 07/31/2024 3:36 PM REGIONAL CLIMATE CHANGE ANALYST MAGNESIUM STAT 07/31/2024 3:36 PM REGIONAL CLIMATE CHANGE ANALYST LACTIC ACID W REFLEX (SEPSIS) STAT 07/31/2024 3:36 PM REGIONAL CLIMATE CHANGE ANALYST TROPONIN, QUANT STAT 07/31/2024 3:36 PM REGIONAL CLIMATE CHANGE ANALYST COMPREHENSIVE METABOLIC PANEL STAT 07/31/2024 3:36 PM REGIONAL CLIMATE CHANGE ANALYST PROTHROMBIN TIME, VENOUS STAT 07/31/2024 3:36 PM REGIONAL CLIMATE CHANGE ANALYST CBC W/DIFF AUTOMATED STAT 07/31/2024 3:36 PM REGIONAL CLIMATE CHANGE ANALYST ECG 12-LEAD Routine 07/31/2024 3:32 PM REGIONAL CLIMATE CHANGE ANALYST CT ABD+PEL WO CON STAT 11/17/2023 3:0 8 PM CDT Rt flank pain HEPATITIS C ANTIBODY Routine 12/24/2022 3:05 PM CDT Decreased GFR LIPID PANEL Routine 02/01/2022 11:27 AM CDT COLONOSCOPY 01/27/2022 6:48 AM CDT from Last 3 Months or Most Recently Relevant to Health Maintenance Results * (ABNORMAL) POCT glucose (09/21/2024 6:26 AM REGIONAL CLIMATE CHANGE ANALYST) Only the most recent of120 resultswithin the time period is included. GLUCOSE POC 123(H) 70 - 109 09/21/2024 6:31 AM REGIONAL CLIMATE CHANGE ANALYST [facility] 09/21/2024 6:26 AM REGIONAL CLIMATE CHANGE ANALYST Ronen Street MD POCT ORDERABLES - DEVICE Final Result [facility] [address] [place] [address], [id number] * (ABNORMAL) BASIC METABOLIC PANEL (09/21/2024 5:45 AM REGIONAL CLIMATE CHANGE ANALYST) Only the most recent of10 resultswithin the time period is included. SODIUM S/P/B 137 136 - 145 MMOL/L 09/21/2024 6:45 AM [facility] POTASSIUM S/P/B 4.3 3.5 - 5.1 MMOL/L 09/21/2024 6:45 AM [facility] CHLORIDE S/P/B 101 97 - 115 MMOL/L 09/21/2024 6:45 AM [facility] CO2 32.6(H) 21.0 - 32.0 MMOL/L 09/21/2024 6:45 AM [facility] GLUCOSE 129(H) 74 - 106 MG/DL 09/21/2024 6:45 AM [facility] BUN 30(H) 7 - 18 MG/DL 09/21/2024 6:45 AM [facility] CREATININE S/P/B 1.24 0.70 - 1.30 MG/DL 09/21/2024 6:45 AM [facility] CALCIUM S/P/B 9.0 8.5 - 10.1 MG/DL 09/21/2024 6:45 AM [facility] ANION GAP 3.4 2.0 - 10.0 MMOL/L 09/21/2024 6:45 AM REGIONAL CLIMATE CHANGE ANALYST [facility] OSMOLALITY (CALC) 292 MOSM/KG 025 6:45 AM REGIONAL CLIMATE CHANGE ANALYST [facility] Comment:REFERENCE RANGE NOT ESTABLISHED GFR ESTIMATE 63(L) >90 ML/MIN/1. 73 M2 09/21/2024 6:45 AM REGIONAL CLIMATE CHANGE ANALYST [facility] GFR NOTES GFR REFERENCE S: 09/21/2024 6:45 AM REGIONAL CLIMATE CHANGE ANALYST [facility] Comment: THE [...] FAILURE: <15 ml/min/1.73 m2 09/21/2024 5:45 AM REGIONAL CLIMATE CHANGE ANALYST us Ronen Street MD LABORATORY Final Res ult [facility] [address] [place] [address], [id number] * MAGNESIUM (09/21/2024 5:45 AM REGIONAL CLIMATE CHANGE ANALYST) Only the most recent of18 resultswithin the time period is included. MAGNESIUM 2.4 1.6 - 2.6 MG/DL 09/21/2024 6:45 AM REGIONAL CLIMATE CHANGE ANALYST [facility] 09/21/2024 5:45 AM REGIONAL CLIMATE CHANGE ANALYST us Ronen Street MD LABORATORY Final Res ult [facility] [address] [place] [address], [id number] * (ABNORMAL) PROTIME/INR, VENOUS (PROTHROMBIN TIME) (09/21/2024 3:33 AM REGIONAL CLIMATE CHANGE ANALYST) Only the most recent of27 resultswithin the time period is included. PROTIME 21.4(H) 9.4 - 12.5 SEC 09/21/2024 4:02 AM [facility] INR 1.8(H) 0.8 - 1.1 09/21/2024 4:02 AM [facility] 09/21/2024 3:33 AM REGIONAL CLIMATE CHANGE ANALYST Kelly Wilson MD LABORATORY Final Result Performing Organization Address [facility] de Phone Number [facility] [address] [place] [address], [id number] * (ABNORMAL) RENAL FUNCTION PANEL (09/18/2024 3:29 AM REGIONAL CLIMATE CHANGE ANALYST) Only the most recent of3 resultswithin the time period is included. SODIUM S/P/B 137 136 - 145 MMOL/L 09/18/2024 4:18 AM [facility] POTASSIUM S/P/B 4.3 3.5 - 5.1 MMOL/L 09/18/2024 4:18 AM [facility] CHLORIDE S/P/B 101 97 - 115 MMOL/L 09/18/2024 4:18 AM [facility] CO2 33.4(H) 21.0 - 32.0 MMOL/L 09/18/2024 4:18 AM [facility] GLUCOSE 91 74 - 106 MG/DL 09/18/2024 4:18 AM [facility] BUN 32(H) 7 - 18 MG/DL 09/18/2024 4:18 AM [facility] CREATININE S/P/B 1.23 0.70 - 1.30 MG/DL 09/18/2024 4:18 AM REGIONAL CLIMATE CHANGE ANALYST [facility] CALCIUM S/P/B 8.8 8.5 - 10.1 MG/DL 09/18/2024 4:18 AM REGIONAL CLIMATE CHANGE ANALYST [facility] ALBUMIN S/P/B 2.7(L) 3.4 - 5.0 G/DL 09/18/2024 4:18 AM REGIONAL CLIMATE CHANGE ANALYST [facility] PHOSPHORUS 3.5 2.5 - 4.9 MG/DL 09/18/2024 4:18 AM REGIONAL CLIMATE CHANGE ANALYST [facility] ANION GAP 2.6 2.0 - 10.0 MMOL/L 09/18/2024 4:18 AM [facility] OSMOLALITY (CALC) 290 MOSM/KG 025 4:18 AM [facility] Comment:REFERENCE RANGE NOT ESTABLISHED GFR ESTIMATE 63(L) >90 ML/MIN/1. 73 M2 09/18/2024 4:18 AM [facility] GFR NOTES GFR REFERENCE S: 09/18/2024 4:18 AM [facility] Comment: THE ESTIMATED GFR [...] m2 G5,KIDNEY FAILURE: <15 ml/min/1.73 m2 09/18/2024 3:2 9 AM REGIONAL CLIMATE CHANGE ANALYST us Ludy Romero MD LABORATORY Final Result [facility] [address] [place] [address], [id number] * (ABNORMAL) Blood gas, venous (09/17/2024 3:43 AM REGIONAL CLIMATE CHANGE ANALYST) Only the most recent of12 resultswithin the time period is included. PH VENOUS 7.32 7.32 - 7.42 09/17/2024 3:57 AM REGIONAL CLIMATE CHANGE ANALYST [facility] PCO2 VENOUS 67.6(H) 41.0 - 51.0 MMHG 09/17/2024 3:57 AM REGIONAL CLIMATE CHANGE ANALYST [facility] PO2 VENOUS 23.3(L) 25.0 - 40.0 MM HG 09/17/2024 3:57 AM REGIONAL CLIMATE CHANGE ANALYST [facility] BICARB VENOUS 34.2(H) 24 - 28 MMOL/L 09/17/2024 3:57 AM REGIONAL CLIMATE CHANGE ANALYST [facility] TOTAL CO2 VENOUS 36.2(H) 25.0 - 29.0 MMOL/L 09/17/2024 3:57 AM REGIONAL CLIMATE CHANGE ANALYST [facility] BASE EXCESS VENOUS 6.7(H) 0 - 2 MMOL/L 09/17/2024 3:57 AM REGIONAL CLIMATE CHANGE ANALYST [facility] O2 SAT VENOUS 35 <75 % 09/17/2024 3:57 AM REGIONAL CLIMATE CHANGE ANALYST [facility] 09/17/2024 3:43 AM REGIONAL CLIMATE CHANGE ANALYST Keyona Miller MD LABORATORY Fi nal Result [facility] [address] [place] [address], [id number] * PHOSPHORUS, INORGANIC PHOSPHATE (09/17/2024 3:43 AM REGIONAL CLIMATE CHANGE ANALYST) Only the most recent of15 resultswithin the time period is included. PHOSPHORUS 3.3 2.5 - 4.9 MG/DL 09/17/2024 4:16 AM REGIONAL CLIMATE CHANGE ANALYST [facility] 09/17/2024 3:43 AM REGIONAL CLIMATE CHANGE ANALYST us Keyona Miller MD LABORATORY Fi nal Result Performing Organization Address City/[facility]/ZIP Co de Phone Number [facility] [address] [place] [address], [place] [phone] * Bedside spirometry (09/15/2024 9:45 AM REGIONAL CLIMATE CHANGE ANALYST) 09/15/2024 9:45 AM REGIONAL CLIMATE CHANGE ANALYST us Suly Howard [employer] ARCHITECT PFT ORDERABLES Final Result Performing Organization Address City/[facility]/ZIP Co de Phone Number [facility] * (ABNORMAL) CBC, AUTO, NO DIFF (09/15/2024 5:04 AM REGIONAL CLIMATE CHANGE ANALYST) WBC 11.65(H) 4.00 - 10.80 x10'3/uL 09/15/2024 5:59 AM REGIONAL CLIMATE CHANGE ANALYST [facility] RBC 3.90(L) 4.50 - 6.10 x10'6/uL 09/15/2024 5:59 AM [facility] HGB 11.2(L) 12.0 - 16.0 G/DL 09/15/2024 5:59 AM REGIONAL CLIMATE CHANGE ANALYST [facility] HCT 37.1 37.0 - 52.0 % 09/15/2024 5:59 AM REGIONAL CLIMATE CHANGE ANALYST [facility] MCV 95.1 78.0 - 100.0 FL 09/15/2024 5:59 AM REGIONAL CLIMATE CHANGE ANALYST [facility] MCH 28.7 27.0 - 31.0 PG 09/15/2024 5:59 AM REGIONAL CLIMATE CHANGE ANALYST [facility] MCHC 30.2(L) 33.0 - 36.0 G/DL 09/15/2024 5:59 AM [facility] RDW 15.6(H) 11.5 - 14.5 % 09/15/2024 5:59 AM [facility] PLT 133(L) 150 - 350 x10'3/uL 09/15/2024 5:59 AM [facility] MPV 13.9(H) 7.4 - 10.4 FL 09/15/2024 5:59 AM [facility] 09/15/2024 5:04 AM REGIONAL CLIMATE CHANGE ANALYST Kelly Wilson MD LABORATORY Final Result [facility] [address] [place] [address], [id number] * (ABNORMAL) COMPREHENSIVE METABOLIC PANEL (09/14/2024 3:48 AM REGIONAL CLIMATE CHANGE ANALYST) Only the most recent of16 resultswithin the time period is included. SODIUM S/P/B 137 136 - 145 MMOL/L 09/14/2024 4:32 AM [facility] POTASSIUM S/P/B 4.1 3.5 - 5.1 MMOL/L 09/14/2024 4:32 AM [facility] CHLORIDE S/P/B 101 97 - 115 MMOL/L 09/14/2024 4:32 AM [facility] CO2 31.4 21.0 - 32.0 MMOL/L 09/14/2024 4:32 AM [facility] GLUCOSE 228(H) 74 - 106 MG/DL 09/14/2024 4:32 AM [facility] BUN 46(H) 7 - 18 MG/DL 09/14/2024 4:32 AM [facility] CREATININE S/P/B 1.39(H) 0.70 - 1.30 MG/DL 09/14/2024 4:32 AM [facility] CALCIUM S/P/B 8.6 8.5 - 10.1 MG/DL 09/14/2024 4:32 AM [facility] BILIRUBIN TOTAL S/P/B 0.7 0.2 - 1.0 MG/DL 09/14/2024 4:32 AM [facility] ALKALINE PHOSPHATASE S/P/B 114 45 - 115 U/L 09/14/2024 4:32 AM [facility] AST 18 15 - 37 U/L 09/14/2024 4:32 AM [facility] ALT 31 16 - 61 U/L 09/14/2024 4:32 AM [facility] TOTAL PROTEIN S/P/B 6.9 6.4 - 8.2 G/DL 09/14/2024 4:32 AM [facility] ALBUMIN S/P/B 2.5(L) 3.4 - 5.0 G/DL 09/14/2024 4:32 AM [facility] ANION GAP 4.6 2.0 - 10.0 MMOL/L 09/14/2024 4:32 AM [facility] OSMOLALITY (CALC) 303 MOSM/KG 025 4:32 AM [facility] Comment:REFERENCE RANGE NOT ESTABLISHED GFR ESTIMATE 55(L) >90 ML/MIN/1. 73 M2 09/14/2024 4:32 AM [facility] GFR NOTES GFR REFERENCE S: 09/14/2024 4:32 AM [facility] Comment: THE ESTIMATED GFR [...] FAILURE: <15 ml/min/1.73 m2 09/14/2024 3:48 AM [facility] [employer] CH[employer] ANALYST us Juanpablo Yoder Rangu MD LABORATORY Final Result [facility] [address] [place] [address], [id number] * (ABNORMAL) CBC W/DIFF AUTOMATED (09/14/2024 3:48 AM [facility] [employer] CH[employer] ANALYST) Only the most recent of19 resultswithin the time period is included. WBC 14.68(H) 4.00 - 10.80 x10'3/uL 09/14/2024 4:24 AM [facility] RBC 3.77(L) 4.50 - 6.10 x10'6/uL 09/14/2024 4:24 AM [facility] HGB 10.9(L) 12.0 - 16.0 G/DL 09/14/2024 4:24 AM [facility] HCT 35.8(L) 37.0 - 52.0 % 09/14/2024 4:24 AM [facility] MCV 95.0 78.0 - 100.0 FL 09/14/2024 4:24 AM [facility] MCH 28.9 27.0 - 31.0 PG 09/14/2024 4:24 AM [facility] MCHC 30.4(L) 33.0 - 36.0 G/DL 09/14/2024 4:24 AM [facility] RDW 15.3(H) 11.5 - 14.5 % 09/14/2024 4:24 AM [facility] PLT 134(L) 150 - 350 x10'3/uL 09/14/2024 4:24 AM [facility] MPV 14.0(H) 7.4 - 10.4 FL 09/14/2024 4:24 AM [facility] DIFFERENTIAL TYPE AUTOMATED DIFFERENTIAL 09/14/2024 4:25 AM [facility] SEG NEUTROPHILS 83.6 % 4:25 AM [facility]AL [employer] CHANGE ANALYST [facility] LYMPHOCYTES 6.5 % 09/14/2024 4:25 AM [employer] CHANGE ANALYST [facility] MONOCYTES 7.6 % 09/14/2024 4:25 AM [facility] EOSINOPHILS 0.3 % 09/14/2024 4:25 AM [facility] BASOPHILS 0.2 % 09/14/2024 4:25 AM [facility] IMMATURE GRANS % 1.8 % 09/14/19 4:25 AM [facility] ABS. NEUTROPHILS 12.26(H) 1.60 - 8.30 x10'3/uL 09/14/2024 4:25 AM [facility] ABS. LYMPHOCYTES 0.96 0.80 - 4.70 x10'3/uL 09/14/2024 4:25 AM [facility] [employer]ANGE [employer]NALYST [facility] ABS. MONOCYTES 1.12 0.00 - 1.50 x10'3/uL 09/14/2024 4:25 AM [facility] CHANGE ANALYST [facility] ABS. EOSINOPHILS 0.04 0.00 - 0.40 x10'3/uL 09/14/2024 4:25 AM [facility] CHANGE ANALYST [facility] ABS. BASOPHILS 0.03 0.00 - 0.20 x10'3/uL 09/14/2024 4:25 AM [facility] ABS. IMMATURE GRANULOCYTES 0.27(H) 0.00 - 0.03 x10'3/uL 09/14/2024 4:25 AM [facility] [employer] CHANGE ANALYST [facility] ABS. NUCLEATED RBC'S 0.00 0.00 - 0.01 x10'3/uL 09/14/2024 4:25 AM [facility] [employer] CHANGE ANALYST [facility] NRBC % 0.0 % 09/14/2024 4:25 AM [facility] 09/14/2024 3:48 AM REGIONAL CLIMATE CHANGE ANALYST Juanpablo Pandey MD LABORATORY Final Result [facility] [address] [place] [address], [phone] * ECG 12 lead (09/11/2024 5:38 AM REGIONAL CLIMATE CHANGE ANALYST) Only the most recent of4 resultswithin the time period is included. 09/11/2024 5:38 AM REGIONAL CLIMATE CHANGE ANALYST Narrative [facility] - 09/11/2024 10:42 AM REGIONAL CLIMATE CHANGE ANALYST [facility] [address] [place] [address] Test Date: 2024-09-11 Pat Name: OBIE SIMS Department: 1 Room: [facility] Gender: Male Hand Tapper: : 1955 Requested By: JUANPABLO PANDEY Order Number: [id number] Reading MD: Ronni Sanchez Measurements Intervals [place] Rate: 81 P: ND: 0 QRS: -38 QRSD: 137 T: 119 QT: 416 QTc: 486 Interpretive Statements ATRIAL FIBRILLATION WITH ABERRANT CONDUCTION OR VENTRICULAR PREMATURE COMPLEXES LEFT AXIS DEVIATION [QRS AXIS < -30] INTRAVENTRICULAR CONDUCTION DELAY [130+ ms QRS DURATION] ONAL CLIMATE CHANGE ANALYST Procedure Note Ronni Sanchez MD - 09/11/2024 [facility] [address] [place] [address] Test Date: 2024-09-11 Pat Name: OBIE BETHANY [facility] Gender[facility] Hand Tapper: : 1955 Requested By: JUANPABLO PANDEY Order Number: [id number] Reading : Ronni Sanchez Measurements Intervals [place] Rate: 81 P: ND: 0 QRS: -38 QRSD: 137 T: 119 QT: 416 QTc: 486 Interpretive Statements ATRIAL FIBRILLATION WITH ABERRANT CONDUCTION OR VENTRICULAR PREMATURE COMPLEXES LEFT AXIS DEVIATION [QRS AXIS < -30] INTRAVENTRICULAR CONDUCTION DELAY [130+ ms QRS DURATION] ONAL CLIMATE CHANGE ANALYST us Juanpablo Pandey MD ECG ORDERABLES Final Result [facility] * XR CHEST PORTABLE (09/09/2024 6:02 AM REGIONAL CLIMATE CHANGE ANALYST) Only the most recent of10 resultswithin the time period is included. Anatomical Region Laterality Modality Chest Radiographic Stephie ging 09/09/2024 6:33 AM REGIONAL CLIMATE CHANGE ANALYST Impressions 09/09/2024 6:34 AM REGIONAL CLIMATE CHANGE ANALYST IMPRESSION: 1. CARDIOMEGALY WITH INTERVAL INCREASE IN PULMONARY VASCULAR CONGESTION AND EDEMA. Signed: Rigoberto Calderon MD Referred By: PROVIDER NON-STAFF Interpreted By: Rigoberto Calderon MD, 09/09/2024 6:33 AM Narrative 09/09/2024 6:34 AM REGIONAL CLIMATE CHANGE ANALYST [address] [address] PATIENT NAME: OBIE SIMS EXAM: Chest one view DATE OF EXAM: 09/09/2024 COMPARISON EXAM: 09/06/2024 INDICATION: Respiratory failure, mechanical ventilation, CHF TECHNIQUE: AP chest FINDINGS: Shallow inspiration. Post midline sternotomy changes are noted. Right arm PICC line placement unchanged. Endotracheal tube and NG tube have been removed. There is cardiomegaly with interval increase in pulmonary vascular congestion and edema. No airspace consolidation or pleural effusion. Procedure Note Rigoberto Calderon MD - 09/09/[address] [address] PATIENT NAME: OBIE SIMS EXAM: Chest one [...] * Vancomycin Random Level (09/08/2024 10:37 AM REGIONAL CLIMATE CHANGE ANALYST) Only the most recent of3 resultswithin the time period is included. VANCOMYCIN RANDOM 16.2 MCG/ML 09/08/2024 11:07 AM REGIONAL CLIMATE CHANGE ANALYST [facility] Comment:REFERENCE RANGE NOT ESTABLISHED 09/08/2024 10:3 7 AM REGIONAL CLIMATE CHANGE ANALYST us Keyona Miller MD LABORATORY Fi nal Result [facility] [address] [place] [address], [place] [phone] * XR SPEECH SWALLOW SJS ONLY (09/07/2024 1:50 PM REGIONAL CLIMATE CHANGE ANALYST) Only the most recent of2 resultswithin the time period is included. Anatomical Region Laterality Modality NA Fluoroscopy 09/08/2024 7:20 AM REGIONAL CLIMATE CHANGE ANALYST Impressions 09/11/2024 9:44 AM REGIONAL CLIMATE CHANGE ANALYST IMPRESSION: Swallowing abnormalities as above. Please see speech pathology report for additional details. Ordered By: JUANPABLO PANDEY Interpreted By: Yimi Li MD, 09/08/2024 7:20 AM Narrative 09/11/2024 9:44 AM REGIONAL CLIMATE CHANGE ANALYST [place] [address] EXAMINATION: Video oropharyngeal swallow study CLINICAL HISTORY: [...] Procedure Note Yimi Li MD - 09/11/2024 [place] [address] EXAMINATION: Video oropharyngeal swallow study CLINICAL HISTORY: [...] POCT ACUTE VENOUS PANEL (09/07/2024 3:47 AM REGIONAL CLIMATE CHANGE ANALYST) Only the most recent of5 resultswithin the time period is included. SODIUM WHOLE BLOOD 159(H) 138 - 146 mmol/L 09/07/2024 4:02 AM [facility] POTASSIUM WHOLE BLOOD 3.8 3.5 - 4.9 mmol/L 09/07/2024 4:02 AM [facility] CA IONIZED WH BLOOD 1.18 1.12 - 1.32 mmol/L 09/07/2024 4:02 AM [facility] POC PH VENOUS 7.371 7.31 - 7.41 09/07/2024 4:02 AM [facility] POC PCO2 VENOUS 54.9(H) 41.0 - 51.0 MMHG 09/07/2024 4:02 AM [facility] POC PO2 VENOUS 35 25 - 40 MMHG 09/07/2024 4:02 AM [facility] POC HCO3 VENOUS 31.9(H) 23 - 28 MMOL/L 09/07/2024 4:02 AM [facility] POC TCO2 VENOUS 34(H) 24 - 29 MMOL/L 09/07/2024 4:02 AM [facility] POC BASE EXCESS VENOUS 7(H) 0 - 3 MMOL/L 09/07/2024 4:02 AM [facility] POC HEMATOCRIT 36(L) 38 - 51 % 09/07/2024 4:02 AM [facility] TIME TEST WAS PERFORMED: 347 09/07/2024 4:02 AM [facility] 09/07/2024 3:47 AM REGIONAL CLIMATE CHANGE ANALYST us Keyona Miller MD POCT ORDERABLES - DEVICE Final Result Performing Organization Address [facility] de Phone Number [facility] [address] [place] [address], [place] [phone] * CULTURE, RESPIRATORY W/ GRAM STAIN (09/05/2024 7:40 AM REGIONAL CLIMATE CHANGE ANALYST) SPEC DESCRIPTION TRACHEAL ASPIRATE 09/05/2024 7:40 AM REGIONAL CLIMATE CHANGE ANALYST [facility] SPECIAL REQUESTS NO SPECIAL REQUEST 09/05/2024 7:40 AM REGIONAL CLIMATE CHANGE ANALYST [facility] GRAM STAIN RESULT <10 EPITHELIAL CELLS PER LPF 09/05/2024 9:53 AM REGIONAL CLIMATE CHANGE ANALYST [facility] GRAM STAIN RESULT >25 NEUTROPHILS PER LPF 09/05/2024 9:53 AM REGIONAL CLIMATE CHANGE ANALYST [facility] GRAM STAIN RESULT NO ORGANISMS SEEN 09/05/2024 9:53 AM REGIONAL CLIMATE CHANGE ANALYST [facility] CULTURE RESULT NO GROWTH 5 DAYS 09/10/2024 10:31 AM REGIONAL CLIMATE CHANGE ANALYST [facility] SPECIMEN FROM TRACHEA OBTAINED BY ASPIRATION / Unknown 09/05/2024 7:40 AM REGIONAL CLIMATE CHANGE ANALYST 09/05/2024 7:51 AM REGIONAL CLIMATE CHANGE ANALYST us Jean Lindsay MD MICROBIOLOGY - GENERAL ORDER BAKARI Final Result Performing Organization Address [facility] Co de Phone Number [facility] [address] [place] [address], [place] [phone] * USV VAST TEAM PICC INSERT >5YR (09/04/2024 11:10 AM REGIONAL CLIMATE CHANGE ANALYST) Anatomical Region Laterality Modality NA Vascular Ultraso und 09/04/2024 9:45 AM REGIONAL CLIMATE CHANGE ANALYST Narrative 09/04/2024 9:45 AM REGIONAL CLIMATE CHANGE ANALYST This report does not contain a radiologist's interpretation. Please review associated procedure and/or operative report. Procedure Note Eun Tovar MD - 09/04/2024 This report does not contain a radiologist's interpretation. Please review associated procedure and/or operative report. Keyona Miller MD VASC Fi nal Result * USV MARIA ALEJANDRA DUPLEX LOW EXT ELZA (09/04/2024 9:03 AM REGIONAL CLIMATE CHANGE ANALYST) Anatomical Region Laterality Modality Extremity Ultrasound 09/04/2024 8:25 AM REGIONAL CLIMATE CHANGE ANALYST Narrative 09/04/2024 9:17 AM REGIONAL CLIMATE CHANGE ANALYST Vascular Report Pat.Name: OBIE SIMS Florentino Westbrook.ID: [id number] St.Date: 09/04/2024 Refer.MD: JUAN FRANCISCO RUBI Exam Time: 8:25:00 AM Study Type:PVI VENOUS DUPLEX SCAN-LEGS BILAT Height: 168 cm Age: 12 1955,69Y Sex: M Sonogrphr: RAMIN Cortez Pat. Stat.:Inpatient Room: [place] [address] ICD - 9: R06.02 Shortness of Breath CPT - 4: 94014 Venous Duplex LE/UE Reason for Study:Shortness of Breath Race: W Bilat: No evidence of acute or chronic thrombosis noted in the deep or superficial veins in either lower extremity. <Electronic Signature> 09/04/2024 09:17 AM Lawrence Blankenship M.D. Procedure Note Lawrence Blankenship MD - 09/04/2024 Vascular Report Pat.Name: OBIE SIMS.ID: [id number] St.Date: 09/04/2024 Refer.MD: JUAN FRANCISCO RUBI Exam Time: 8:25:00 AM Study Type:PVI VENOUS DUPLEX SCAN-LEGS BILAT Height: 168 cm Age: 12 1955,69Y Sex: M Sonogrphr: RAMIN Cortez Pat. Stat.:Inpatient Room: [place] [address] ICD - 9: R06.02 Shortness of Breath CPT - 4: 87024 Venous Duplex LE/UE Reason for Study:Shortness of Breath Race: W Bilat: No evidence of acute or chronic thrombosis noted in the deep or superficial veins in either lower extremity. <Electronic Signature> 09/04/2024 09:17 AM Lawrence Blankenship M.D. Juan Francisco Rubi MD VASC Final Result * (ABNORMAL) TROPONIN, QUANT (09/04/2024 8:00 AM REGIONAL CLIMATE CHANGE ANALYST) Only the most recent of4 resultswithin the time period is included. Pathologist [facility] TROPONIN I HIGH SENSITIVITY 136(H) 0 - 78 ng/L 09/04/2024 8:55 AM REGIONAL CLIMATE CHANGE ANALYST [facility] 09/04/2024 8:00 AM REGIONAL CLIMATE CHANGE ANALYST Deya Jiménez MD LABORATORY Final Result Performing Organization Address [facility] Co de Phone Number [facility] [address] [place] [address], [phone] * HEPARIN, ANTI XA, UFH (09/04/2024 6:17 AM REGIONAL CLIMATE CHANGE ANALYST) Only the most recent of3 resultswithin the time period is included. Pathologist [facility] HEPARIN ANTI XA UFH 0.41 0.30 - 0.70 IU/ML 09/04/2024 7:03 AM REGIONAL CLIMATE CHANGE ANALYST [facility] Comment: UFH Therapeutic Anti Xa Ranges: Medical Therapeutic Range: 0.30 - 0.70 IU/mL Cardiac Therapeutic Range: 0.30 - 0.50 IU/mL Neuro Therapeutic Range: 0.20 - 0.40 IU/mL 09/04/2024 6:17 AM REGIONAL CLIMATE CHANGE ANALYST Keyona Miller MD LABORATORY Fi nal Result Performing Organization Address [facility]/ZIP Co de Phone Number [facility] [address] [place] [address], [phone] * INTUBATION (09/03/2024 9:08 PM REGIONAL CLIMATE CHANGE ANALYST) Juan Francisco Garcia MD - 09/03/2024 9:08 PM REGIONAL CLIMATE CHANGE ANALYST Juan Francisco Rubi MD 09/03/2024 9:09 PM INTUBATION Date/Time: 09/03/2024 9:08 PM Performed [...] to verify the correct patient, procedure, equipment, support services specialist and site/side marked as required. Indications: hypoxemia [...] NATRIURETIC PEPTIDE (PRO BNP) (09/03/2024 8:29 PM REGIONAL CLIMATE CHANGE ANALYST) Only the most recent of3 resultswithin the time period is included. PRO-B TYPE NATRIURETIC PEPTIDE 28,171(H) <125 PG/ML 09/03/2024 9:13 PM REGIONAL CLIMATE CHANGE ANALYST [facility] Comment: AGE INDEPENDENT: <300 PG/ML [...] 72% FOR ACUTE CHF. 09/03/2024 8:29 PM REGIONAL CLIMATE CHANGE ANALYST us Deya Jiménez MD LABORATORY Final Result Performing Organization Address [facility] Co de Phone Number [facility] [address] [place] [address], [phone] * LACTIC ACID (09/03/2024 8:29 PM REGIONAL CLIMATE CHANGE ANALYST) LACTIC ACID VENOUS 1.5 0.4 - 2.0 MMOL/L 09/03/2024 9:11 PM REGIONAL CLIMATE CHANGE ANALYST [facility] 09/03/2024 8:29 PM REGIONAL CLIMATE CHANGE ANALYST us Deya Jiménez MD LABORATORY Final Result Performing Organization Address [facility] de Phone Number [facility] [address] [place] [address], [phone] * (ABNORMAL) ARTERIAL BLOOD GAS (09/03/2024 8:29 PM REGIONAL CLIMATE CHANGE ANALYST) Only the most recent of2 resultswithin the time period is included. PH ARTERIAL 7.25(L) 7.35 - 7.45 09/03/2024 8:53 PM REGIONAL CLIMATE CHANGE ANALYST [facility] PCO2 73.9(HH) 35.0 - 45.0 MMHG 09/03/2024 8:53 PM REGIONAL CLIMATE CHANGE ANALYST [facility] Comment: CRITICAL RESULT, SPECIMEN DATE, TIME WERE READ BACK BY RN [id number] LENARD PO2 88.4 83.0 - 108.0 MMHG 09/03/2024 8:53 PM REGIONAL CLIMATE CHANGE ANALYST [facility] BICARB ARTERIAL 31.2(H) 22 - 26 MMOL/L 09/03/2024 8:53 PM REGIONAL CLIMATE CHANGE ANALYST [facility] TOTAL CO2 CAPILLARY 33.5(H) 23 - 27 MMOL/L 09/03/2024 8:53 PM [facility] BE/BASE EXCESS 2.0 0 - 2 MMOL/L 09/03/2024 8:53 PM [facility] O2 Saturation 95 95 - 98 % 09/03/2024 8:53 PM [facility] HEATHER TEST POSITIVE 09/03/2024 8:29 PM [facility] OXYGEN STATUS by pap 09/03/2024 8:29 PM [facility] DRAW SITE ARTERIAL LT RADIAL 09/03/2024 8:29 PM [facility] 09/03/2024 8:29 PM REGIONAL CLIMATE CHANGE ANALYST Deya Jiménez MD LABORATORY Final Result [facility] [address] [place] [address], [phone] * (ABNORMAL) POCT ACUTE ARTERIAL PANEL (09/03/2024 8:28 PM REGIONAL CLIMATE CHANGE ANALYST) SODIUM WHOLE BLOOD 150.0(H) 138 - 146 mmol/L 09/18/2024 11:07 AM [facility] POTASSIUM WHOLE BLOOD 4.30 3.5 - 4.9 mmol/L 09/18/2024 11:07 AM [facility] CA IONIZED WH BLOOD 1.22 1.12 - 1.32 mmol/L 09/18/2024 11:07 AM [facility] POC PH ARTERIAL 7.278(L) 7.35 - 7.45 09/18/2024 11:07 AM [facility] POC PCO2 ARTERIAL 73.80(H) 35.0 - 45.0 MMHG 09/18/2024 11:07 AM [facility] POC PO2 ARTERIAL 88.0 80 - 105 MMHG 09/18/2024 11:07 AM [facility] POC HCO3 ARTERIAL 34.5(H) 22 - 26 MMOL/L 09/18/2024 11:07 AM [facility] POC TCO2 ARTERIAL 37.0(H) 23 - 27 MMOL/L 09/18/2024 11:07 AM [facility] POC BASE EXCESS ARTERIAL 8(H) 0 - 3 MMOL/L 09/18/2024 11:07 AM [facility] POC HEMATOCRIT 46 38 - 51 % 09/18/2024 11:07 AM [facility] TIME TEST WAS PERFORMED: 202709/18/2024 11:07 AM REGIONAL CLIMATE CHANGE ANALYST [facility] 09/03/2024 8:28 PM REGIONAL CLIMATE CHANGE ANALYST us Kelly Wilson MD POCT ORDERABLES - DEVICE Final Result Performing Organization Address [facility] de Phone Number [facility] [address] [place] [address], [phone] * CULTURE, BACTERIA BLOOD (09/03/2024 12:23 PM REGIONAL CLIMATE CHANGE ANALYST) Only the most recent of3 resultswithin the time period is included. SPEC DESCRIPTION BLOOD 09/03/2024 11:59 AM REGIONAL CLIMATE CHANGE ANALYST [facility] SPECIAL REQUESTS NO SPECIAL REQUEST 09/03/2024 11:59 AM REGIONAL CLIMATE CHANGE ANALYST [facility] CULTURE RESULT NO GROWTH 5 DAYS 09/08/2024 9:25 PM REGIONAL CLIMATE CHANGE ANALYST [facility] BLOOD SPECIMEN OBTAINED FOR BLOOD CULTURE / Unknown 09/03/2024 12:23 PM REGIONAL CLIMATE CHANGE ANALYST 09/03/2024 12:24 PM REGIONAL CLIMATE CHANGE ANALYST us Jean Lindsay MD MICROBIOLOGY - GENERAL ORDER BAKARI Final Result Performing Organization Address [facility] Co de Phone Number [facility] [address] [place] [address], [phone] * CULTURE, URINE (09/01/2024 11:10 AM REGIONAL CLIMATE CHANGE ANALYST) Only the most recent of2 resultswithin the time period is included. SPEC DESCRIPTION URINE CLEAN CATCH 09/01/2024 2:58 PM REGIONAL CLIMATE CHANGE ANALYST [facility] SPECIAL REQUESTS NO SPECIAL REQUEST 09/01/2024 2:58 PM REGIONAL CLIMATE CHANGE ANALYST [facility] CULTURE RESULT NO GROWTH (< OR = 1,000 CFU/ML) 09/03/2024 8:35 AM REGIONAL CLIMATE CHANGE ANALYST [facility] URINE SPECIMEN OBTAINED BY CLEAN CATCH PROCEDURE / Unknown 09/01/2024 11:10 AM REGIONAL CLIMATE CHANGE ANALYST 09/01/2024 3:11 PM REGIONAL CLIMATE CHANGE ANALYST us Jean Lindsay MD MICROBIOLOGY - GENERAL ORDER BAKARI Final Result [facility] [address] [place] [address], [phone] * ANCA VASCULITIS PANEL (09/01/2024 8:19 AM REGIONAL CLIMATE CHANGE ANALYST) MYELOPEROXIDASE AB <1.0 <1.0 AI 2024 8:51 PM REGIONAL CLIMATE CHANGE ANALYST [employer] [facility]IRAZ Comment: Value Interpretation <1.0 AI: No Antibody Detected >or=1.0 AI: Antibody Detected Autoantibodies to myeloperoxidase (MPO) [...] ANCA <1.0 <1.0 AI 09/04/2024 8:51 PM REGIONAL CLIMATE CHANGE ANALYST [employer] [facility]AZ Comment: Value Interpretation <1.0 AI: No Antibody Detected >or=1.0 AI: Antibody Detected Autoantibodies to proteinase-3 (ND-3) are accepted as characteristic for granulomatosis with polyangiitis (GPA, Sherie's), and are detectable in 95% of the histologically proven cases. The cytoplasmic IFA pattern, (c-ANCA), is based largely on autoantibody to ND-3 which serves as the primary antigen. These autoantibodies are present in active disease. Test Performed by [facility] [place], [employer], [address] [place] [address] Bill Blackmon M.D., Ph.D., Director of Laboratories , CLIA [id number] 09/01/2024 8:19 AM REGIONAL CLIMATE CHANGE ANALYST Ludy Romero MD LABORATORY Final Result Performing Organization Address City/[facility]/ZIP Co de Phone Number [address] , [place] [phone] * ANTI-GBM (GLOMERULAR BASEMENT MEMBRANE AB) (09/01/2024 8:19 AM REGIONAL CLIMATE CHANGE ANALYST) ANTI-GBM <1.0 <1.0 AI 09/04/2024 8:28 PM REGIONAL CLIMATE CHANGE ANALYST [employer] [facility] Comment: Value Interpretation <1.0 AI: No Antibody Detected >or=1.0 AI: Antibody Detected Test Performed by [facility] [place], [employer] [place], [address] [place] [address] Bill Blackmon M.D., Ph.D., Director of Laboratories , CLIA [id number] 09/01/2024 8:19 AM REGIONAL CLIMATE CHANGE ANALYST Ludy Romero MD LABORATORY Final Result Performing Organization Address City/[facility]/ZIP Co de Phone Number [facility] [address] [place], [place] , [place] [phone] * (ABNORMAL) HEMOGLOBIN, GLYCATED (09/01/2024 8:19 AM REGIONAL CLIMATE CHANGE ANALYST) HGB A1C 7.0(H) <5.7 % 09/01/2024 9:13 AM REGIONAL CLIMATE CHANGE ANALYST [facility] ESTIMATED AVG GLUCOSE 154(H) 74 - 114 MG/DL 09/01/2024 9:13 AM REGIONAL CLIMATE CHANGE ANALYST [facility] 09/01/2024 8:19 AM REGIONAL CLIMATE CHANGE ANALYST Zaria Florentino Shari [facility] Final R esult Performing Organization Address [facility] Co de Phone Number [facility] [address] [place] [address], [phone] * THYROID STIM HORMONE, TSH (09/01/2024 8:19 AM REGIONAL CLIMATE CHANGE ANALYST) TSH 2.000 0.358 - 3.740 uIU/ML 09/01/2024 9:11 AM REGIONAL CLIMATE CHANGE ANALYST [facility] Comment: ASSAY PERFORMED BY CHEMILUMINESCENCE METHODOLOGY USING [employer]IST[employer]. PATIENT RESULTS DETERMINED BY ASSAYS USING DIFFERENT MANUFACTURERS FOR METHODS MAY NOT BE COMPARABLE. 09/01/2024 8:19 AM REGIONAL CLIMATE CHANGE ANALYST [facility] Florentino Shari [facility] Final R esult Performing Organization Address [facility] de Phone Number [facility] [address] [place] [address], [phone] * US RETROPERITONE[employer]TD (08/31/2024 10:20 PM REGIONAL CLIMATE CHANGE ANALYST) Anatomical Region Laterality Modality Renal Ultrasound 09/01/2024 2:04 AM REGIONAL CLIMATE CHANGE ANALYST Impressions 09/01/2024 2:06 AM REGIONAL CLIMATE CHANGE ANALYST IMPRESSION: 1. No right-sided hydronephrosis. 2. Nonvisualized left kidney and suboptimally visualized right kidney. 3. Decompressed urinary bladder with Oneill catheter. Referred By: PROVIDER NON-STAFF Interpreted By: Ever Love MD, 09/01/2024 2:04 AM Narrative 09/01/2024 2:06 AM REGIONAL CLIMATE CHANGE ANALYST [facility] [address] [place], [place] [address] EXAMINATION: Renal ultrasound EXAM DATE/TIME: 08/31/2024 10:03 [...] urinary bladder is decompressed with Oneill catheter. Procedure Note Ever Love MD - 09/01/2024 [facility] [address] [place], [place] [address] EXAMINATION: Renal ultrasound EXAM DATE/TIME: 08/31/2024 10:03 [...] * SODIUM URINE RANDOM (08/31/2024 5:12 PM REGIONAL CLIMATE CHANGE ANALYST) NA RANDOM (U) 88 MMOL/L 08/31/2024 5:38 PM REGIONAL CLIMATE CHANGE ANALYST [facility] Comment:REFERENCE RANGE NOT ESTABLISHED URINE SPECIMEN / Unknown 08/31/2024 5:12 PM REGIONAL CLIMATE CHANGE ANALYST us Ludy Romero MD URINE ORDERABLES Final Result Performing Organization Address [facility] Co de Phone Number [facility] [address] [place] [address], [phone] * CREATININE URINE RANDOM (08/31/2024 5:12 PM REGIONAL CLIMATE CHANGE ANALYST) CREATININE (U) 33.5 MG/DL 08/31/2024 5:38 PM REGIONAL CLIMATE CHANGE ANALYST [facility] Comment:REFERENCE RANGE NOT ESTABLISHED URINE SPECIMEN / Unknown 08/31/2024 5:12 PM REGIONAL CLIMATE CHANGE ANALYST us Ludy Romero MD URINE ORDERABLES Final Result Performing Organization Address [facility] de Phone Number [facility] [address] [place] [address], [phone] * (ABNORMAL) URINALYSIS (08/31/2024 5:12 PM REGIONAL CLIMATE CHANGE ANALYST) Only the most recent of2 resultswithin the time period is included. COLOR (U) LIGHT BROWN 08/31/2024 5:34 PM REGIONAL CLIMATE CHANGE ANALYST [facility] TRANSPARENCY SLIGHTLY CLOUDY 08/31/2024 5:34 PM [facility] SPECIFIC GRAVITY (U) 1.009 1.002 - 1.035 08/31/2024 5:34 PM [facility] U PH 5.0 5 - 8 08/31/2024 5:34 PM [facility] PROTEIN RANDOM (U) 10(A) NEGATIVE 08/31/2024 5:34 PM [facility] GLUCOSE (U) 30(A) NEGATIVE MG/DL 08/31/2024 5:34 PM REGIONAL CLIMATE CHANGE ANALYST [facility] KETONES MG/DL (U) NEGATIVE NEGATIVE 08/31/2024 5:34 PM REGIONAL CLIMATE CHANGE ANALYST [facility] BILIRUBIN (U) NEGATIVE NEGATIVE 08/31/2024 5:34 PM REGIONAL CLIMATE CHANGE ANALYST [facility] BLOOD (U) 3+(A) NEGATIVE 08/31/2024 5:34 PM REGIONAL CLIMATE CHANGE ANALYST [facility] NITRITES NEGATIVE NEGATIVE 08/31/2024 5:34 PM REGIONAL CLIMATE CHANGE ANALYST [facility] UROBILINOGEN NORMAL 0 - 1 EU/DL 08/31/2024 5:34 PM REGIONAL CLIMATE CHANGE ANALYST [facility] LEUKOCYTES (U) 1+(A) NEGATIVE 08/31/2024 5:34 PM [facility] RBC/HPF >182(H) 0 - 3 /HPF 08/31/2024 5:34 PM [facility] Comment:PLEASE CALL THE LAB WITHIN 2 HOURS IF ACTUAL NUMBER OF CELLS IS REQUIRED. WBC/HPF 27(H) 0 - 6 /HPF 08/31/2024 5:34 PM [facility] BACTERIA (U) PRESENT /HPF 08/31/2024 5:34 PM [facility] SQUAMOUS EPITHELIALS <1 08/31/2024 5:34 PM [facility] WBC CLUMPS PRESENT 08/31/2024 5:34 PM [facility] HYALINE CASTS 28 08/31/2024 5:34 PM [facility] URINE SPECIMEN / Unknown 08/31/2024 5:12 PM REGIONAL CLIMATE CHANGE ANALYST us Ludy Romero MD URINE ORDERABLES Final Result [facility] [address] [place] [address], [id number] * USE ECHOCARDIOGRAM W CON (08/31/2024 2:02 PM REGIONAL CLIMATE CHANGE ANALYST) Anatomical Region Laterality Modality NA Echocardiogram 08/31/2024 1:13 PM REGIONAL CLIMATE CHANGE ANALYST Narrative 08/31/2024 11:02 PM REGIONAL CLIMATE CHANGE ANALYST Echocardiography Report Pat.Name: OBIE SIMS Pat.ID: [id number] .Date: 08/31/2024 MD: [id number] NON-STAFF PROVIDER EWDPROV EWDPROV Exam Time: 1:13:00 PM Study Type:ECHO W/CONTRAST COMPLETE Height: 168 cm Weight: 110 kg BSA: 2.17 m2 Age: 12 1955,69Y Sex: M BP: 117/53 HR: 84 bpm Sonogrphr: Jose Cruz Tejada [facility] Pat. Stat.:Inpatient Room: 622 CPT - 4: [...] Mass 2D Value 223 g LV Mass [id number] Value 103 g/m2 RA Volume Atrial Schaffer [...] 08/31/2024 Echocardiography Report Pat.Name: OBIE SIMS Pat.ID: [id number] .Date: 08/31/2024 Refer.: [id number] NON-STAFF PROVIDER EWDPJAKY EWDPJAKY Exam Time: 1:13:00 PM Study Type:ECHO W/CONTRAST COMPLETE Height: 168 cm Weight: 110 kg BSA: 2.17 m2 Age: 12 1955,69Y Sex: M BP: 117/53 HR: 84 bpm Sonogrphr: Jose Cruz eTjada [facility] Pat. Stat.:Inpatient Room: 622 CPT - 4: [...] Mass 2D Value 223 g LV Mass [id number] Value 103 g/m2 RA Volume Atrial Schaffer [...] 11:02 PM Brit Gonzáles M.D. Zaria Mccarthy [facility]- ECHO Final R esult * CK (CPK) (08/31/2024 10:35 AM REGIONAL CLIMATE CHANGE ANALYST) CPK 154 39 - 308 U/L 08/31/2024 5:11 PM REGIONAL CLIMATE CHANGE ANALYST [facility] 08/31/2024 10:3 5 AM REGIONAL CLIMATE CHANGE ANALYST us Ludy Romero MD LABORATORY Final Result [facility] [address] [place] [address], [place] [phone] [id number] * LACTIC ACID W REFLEX (SEPSIS) (07/31/2024 3:36 PM REGIONAL CLIMATE CHANGE ANALYST) LACTIC ACID VENOUS 0.4 0.4 - 2.0 MMOL/L 07/31/2024 4:08 PM REGIONAL CLIMATE CHANGE ANALYST [facility] 07/31/2024 3:36 PM REGIONAL CLIMATE CHANGE ANALYST Jena Schilling MD LABORATORY Final Resul t Performing Organization Address City/[facility]/ZIP Co de Phone Number [facility] [address] [place] [address], [place] [phone] * CT ABD+PEL WO CON (11/17/2023 3:08 PM CDT) Anatomical Region Laterality Modality Abdomen Computed Tomogra phy 11/17/2023 4:16 PM CDT Impressions 11/17/2023 4:31 PM CDT IMPRESSION: 1. Fatty liver. 2. Enlarged spleen [...] techniques. FINDINGS: Multiple pulmonary granulomas. Aortic valve replacement. Extensive and diffuse arterial calcifications. No aneurysm of the aorta. Possible left renal artery origin stenosis. STEPHIE stenosis. Diffuse fatty infiltration of an normal size liver. The spleen is enlarged with homogeneous noncontrast density. Low density right adrenal mass is unchanged dimensions. Density measurements are quite variable between 5 and 25 Hounsfield units. Findings likely represent a rather large and relatively lipid poor adenoma. Calcified dependent gallstones with no right upper quadrant inflammation. No urinary tract calcifications or obstruction. Small calcification in the renal capsule region inferiorly on the right side is unchanged. Unchanged renal cysts. Tiny indeterminate nodule along the lateral margin of the left kidney measures about 5 mm. This is smaller than previously. Normal urinary bladder. Small fat-containing umbilical hernia. Moderate to large stool volume through the majority of the large bowel. Some of this fecal density material is also within the terminal ileum. No point of obstruction. Probable stasis or valvular reflux. The appendix is not visualized. No right lower quadrant inflammation. Diffuse thoracolumbar [...] C ANTIBODY (12/24/2022 3:05 PM CDT) Pathologist [facility] HEPATITIS C AB NON-REACTI VE NON-REACT ALEK 12/25/2022 6:28 PM CDT [facility] Comment: ANTIBODIES TO HCV NOT DETECTED. DOES NOT EXCLUDE THE POSSIBILITY OF EXPOSURE TO HCV. 12/24/2022 3:05 PM CDT Katina Beltran MD LABORATORY Final Resu lt [facility] [address] [place] [phone], [id number] * LIPID PANEL (02/01/2022 11:27 AM CDT) Pathologist [facility] CHOLESTEROL 151 MG/DL 02/01/2022 12:29 PM CDT [facility] Comment:DESIRABLE: <200 TRIGLYCERIDES 119 MG/DL 02/01/2022 12:29 PM CDT [facility] Comment:<150 NORMAL HDL 73 >39 MG/DL 02/01/2022 12:29 PM CDT [facility] LDL (CALCULATED) 54 MG/DL 02/02/20 22 12:29 PM CDT [facility] Comment:<100 OPTIMAL VLDL CALCULATION 24 MG/DL 02/02/20 22 12:29 PM CDT [facility] Comment:REFERENCE RANGE NOT ESTABLISHED CHOL/HDL RATIO 2.1 02/01/2022 12:29 PM CDT [facility] Comment:REFERENCE RANGE NOT ESTABLISHED LDL/HDL 0.7 02/01/2022 12:29 PM CDT [facility] Comment:REFERENCE RANGE NOT ESTABLISHED NON HDL CHOLESTEROL 78 MG/DL 02/01/2022 12:29 PM CDT [facility] Comment:REFERENCE RANGE NOT ESTABLISHED 02/01/2022 11:2 7 AM CDT Segundo Montana MD LABORATORY Final Result Performing Organization Address City/State/[facility] Co de Phone Number [facility] [address] [place] [address], [phone] * Colonoscopy (01/27/2022 6:48 AM CDT) Kilo Navarro MD GI PROCEDURE ORDERABLES Final Result from Last 3 Months or Most Recently Relevant to Health Maintenance Insurance [facility] [employer] Advance Directives Documents on File Type Date Recorded Patient Associate Professor Of Economics Expl anation Advance Directives and Living Will 09/22/2024 3:38 PM Advance Directives and Living Will 02/22/2020 1:54 PM 04/11/2012 POLST Advance Directives and Living Will 11/06/2017 POWER OF INSPECTOR RECEIVING FO R HEALTH CARE Advance Directives and Living Will 01/04/2017 POWER OF INSPECTOR RECEIVING FO R HEALTH CARE Advance Directives and Living Will 01/04/2017 SHORT FORM POWER OF INSPECTOR RECEIVING Advance Directives and Living Will 05/13/2016 POWER OF INSPECTOR RECEIVING FO R HEALTH CARE Advance Directives and Living Will 05/13/2016 SHORT FORM POWER OF INSPECTOR RECEIVING Advance Directives and Living Will 04/06/2016 POWER OF INSPECTOR RECEIVING FO R HEALTH CARE Advance Directives and Living Will 03/23/2016 POWER OF INSPECTOR RECEIVING FO R HEALTH CARE Advance Directives and Living Will 01/27/2016 POWER OF INSPECTOR RECEIVING FO R HEALTH CARE Advance Directives and Living Will 10/23/2015 POWER OF INSPECTOR RECEIVING FO R HEALTH CARE Advance Directives and Living Will 10/21/2015 POWER OF INSPECTOR RECEIVING FO R HEALTH CARE Advance Directives and Living Will 10/21/2015 POWER OF INSPECTOR RECEIVING FO R HEALTH CARE Advance Directives and Living Will 10/21/2015 POWER OF INSPECTOR RECEIVING FO R HEALTH CARE Advance Directives and Living Will 10/01/2015 POWER OF INSPECTOR RECEIVING FO R HEALTH CARE Advance Directives and Living Will 08/08/2015 POWER OF INSPECTOR RECEIVING FO R HEALTH CARE Advance Directives and Living Will 06/25/2014 POWER OF INSPECTOR RECEIVING FO R HEALTH CARE Advance Directives and Living Will 05/23/2014 POWER OF INSPECTOR RECEIVING FO R HEALTH CARE * DNR (Latest [...] 4:57 AM 02/09/2023 3:44 PM Care Teams Plastic Parts Fabricator Relationship Specialty Start Date End Date Megan Infante MD [address] [place] [phone] PCP - General FAMILY PRACTICE 04/06/16 Zaki Ortiz MD [facility] [place] [address] Consulting Physician PULMONARY DISEASE 07/12/19 Concetta Acevedo MD [address] [place] [phone] Surgeon NEUROLOGICAL SURGERY 12/16/22 Jeff Grace MD [address] [place] [address] Consulting Physician INTERNAL MEDICINE 02/11/23 Brit Gonzáles MD [address] [place] [address] Consulting Physician CARDIOVASCULAR DISEASE 12/29/23
--- OUTSIDE RECORDS SUMMARY | 2024-10-18 15:48 | XMS_ITS | Encounter Summary ---
Author Organization [facility] Address [facility] [place] [address] Care Team Providers Care Sap Trainer Name Role Phone Piyush Pandey MD Unavailable Unavailabl e Megan Infante MD Primary Care Provider [phone] Sharmila Davis APRN, DIESEL LOCOMOTIVE CRANE OPERATOR-C Unavailable [phone] Linda Block MD Unavailable [phone] Jeff Grace MD Unavailable Zaki Ortiz MD Unavailable [phone] Concetta Acevedo MD Unavailable + [phone] Jeff Grace MD Unavailable Brit Gonzáles MD Unavailable Encounter Details Date Type Department Care Team (Late st Contact Info) Description 01/28/2019 Abstract [facility] [address] [place] [address] , Generic Conversion, Social History Tobacco Use Types Packs/Day Years Used Date Smoking Tobacco: Former Smokeless Tobacco: Former Chew Alcohol Use Standard Drinks/Week Comments Yes 0 (1 standard drink = 0.6 oz pur e alcohol) 6 per week Sex and Gender Information Value Date Recorded Sex Assigned at Male 09/07/2024 10:18 PM GENERAL PRODUCTION LABORER Legal Sex Male 10:01 PM CDT Gender Identity Male 09/07/2024 10:18 PM GENERAL PRODUCTION LABORER Sexual Orientation Straight 09/07/2024 10 :18 PM GENERAL PRODUCTION LABORER Occupation Industry Job Start Date Job End Date Not on file Not on file Not on file Not on file documented as of this encounter Plan of Treatment Upcoming Encounters Date Type Department Care Team (Late st Contact Info) Description 10/26/2024 10:15 AM GENERAL PRODUCTION LABORER Telephone [facility] [address] [place] [address] Brit Gonzáles MD [address] [place], [place] [phone] 12/04/2024 10:00 AM CDT Office Visit [facility] [address] [place] [address] Brit Gonzáles MD [address] [place], [place] [phone] documented as of this encounter Visit Diagnoses Not on filedocumented in this encounter Additional Health Concerns Infection Onset Date Last Indicated Resolved Time COVID-19 Rule Out 03/02/2020 03/02/2020 03/03/2020 8:23 PM CDT COVID-19 Rule Out 07/03/2020 07/03/2020 07/04/2020 11:25 PM GENERAL PRODUCTION LABORER COVID-19 Rule Out 09/07/2020 09/07/2020 09/08/2020 5:52 PM GENERAL PRODUCTION LABORER COVID-19 Rule Out 10/05/2020 10/05/2020 10/06/2020 11:37 AM GENERAL PRODUCTION LABORER COVID-19 Rule Out 02/08/2021 02/08/2021 02/08/2021 9:06 PM CDT COVID-19 Rule Out 01/24/2022 01/24/2022 01/24/2022 6:41 PM CDT COVID-19 Rule Out 01/04/2023 01/04/2023 01/04/2023 10:12 AM CDT documented as of this encounter Care Teams Sap Trainer Relationship Specialty Start Date End Date Megan Infante MD [address] [place] [phone] PCP - General FAMILY PRACTICE 04/06/16 Piyush Pandey MD [employer] Manager CARDIOVASCULAR DISEASE 04/06/16 12/28/23 Sharmila Davis APRN, DIESEL LOCOMOTIVE CRANE OPERATOR-C [address] [phone] NURSE PRACTITIONER 01/04/17 04/03/24 Linda Block MD [address] [phone] [employer] Manager CLINICAL CARDIAC ELECTROPHYSIOLOGY 02/08/17 04/12/23 Jeff Grace MD [address] [phone] Consulting Physician INTERNAL MEDICINE 02/20/19 3 Zaki Ortiz MD [address] [place] [phone] Consulting Physician PULMONARY DISEASE 07/12/19 Concetta Acevedo MD [address] [place] [address] Surgeon NEUROLOGICAL SURGERY 12/16/22 Jeff Grace MD [address] [place], [place] [phone] Consulting Physician INTERNAL MEDICINE 02/11/23 Brit Gonzáles MD [address] [place] [address] Consulting Physician CARDIOVASCULAR DISEASE 12/29/23 documented as of this encounter
--- OUTSIDE RECORDS SUMMARY | 2024-10-18 15:48 | XMS_ITS | Encounter Summary ---
Author Organization [facility] Address [address] [place] [address] Care Team Providers Care Cw Operator Name Role Phone Piyush Pandey MD Unavailable Unavailabl e Megan Infante MD Primary Care Provider [phone] Sharmila Davis APRN WET CHAR CONVEYOR TENDER-C Unavailable [phone] Linda Block MD Unavailable [phone] Jeff Grace MD Unavailable Zaki Ortiz MD Unavailable [phone] Concetta Acevedo MD Unavailable [phone] Jeff Grace MD Unavailable Brit Gonzáles MD Unavailable Encounter Details Date Type Department Care Team (Late st Contact Info) Description 03/29/2017 Abstract [facility] [address] [place] [phone] Piyush Pandey MD Social History Tobacco Use Types Packs/Day Years Used Date Smoking Tobacco: Former Smokeless Tobacco: Former Chew Alcohol Use Standard Drinks/Week Comments Yes 0 (1 standard drink = 0.6 oz pur e alcohol) 6 per week Sex and Gender Information Value Date Recorded Sex Assigned at Male 09/07/2024 10:18 PM OSTOMY CARE NURSE Legal Sex Male 10:01 PM CDT Gender Identity Male 09/07/2024 10:18 PM OSTOMY CARE NURSE Sexual Orientation Straight 09/07/2024 10 :18 PM OSTOMY CARE NURSE Occupation Industry Job Start Date Job End Date Not on file Not on file Not on file Not on file documented as of this encounter Plan of Treatment Upcoming Encounters Date Type Department Care Team (Late st Contact Info) Description 10/26/2024 10:15 AM OSTOMY CARE NURSE Telephone [facility] [address] [place] [address] Brit Gonzáles MD [address] [place], [place] [phone] 12/04/2024 10:00 AM CDT [facility] [address] [place] [address] Brit Gonzáles MD [address] [place], [place] [phone] documented as of this encounter Visit Diagnoses Not on filedocumented in this encounter Additional Health Concerns Infection Onset Date Last Indicated Resolved Time COVID-19 Rule Out 03/02/2020 03/02/2020 03/03/2020 8:23 PM CDT COVID-19 Rule Out 07/03/2020 07/03/2020 07/04/2020 11:25 PM OSTOMY CARE NURSE COVID-19 Rule Out 09/07/2020 09/07/2020 09/08/2020 5:52 PM OSTOMY CARE NURSE COVID-19 Rule Out 10/05/2020 10/05/2020 10/06/2020 11:37 AM OSTOMY CARE NURSE COVID-19 Rule Out 02/08/2021 02/08/2021 02/08/2021 9:06 PM CDT COVID-19 Rule Out 01/24/2022 01/24/2022 01/24/2022 6:41 PM CDT COVID-19 Rule Out 01/04/2023 01/04/2023 01/04/2023 10:12 AM CDT documented as of this encounter Care Teams Cw Operator Relationship Specialty Start Date End Date Megan Infante MD [address] [place] [phone] PCP - General FAMILY PRACTICE 04/06/16 Piyush Pandey MD [place] [employer] Merchandiser CARDIOVASCULAR DISEASE 04/06/16 12/28/23 Sharmila Davis APRN, WET CHAR CONVEYOR TENDER-C [address] [phone] NURSE PRACTITIONER 01/04/17 04/03/24 Linda Block MD [address] [phone] [place] Merchandiser CLINICAL CARDIAC ELECTROPHYSIOLOGY 02/08/17 04/12/23 Jeff Grace MD [address] [phone] Consulting Physician INTERNAL MEDICINE 02/20/19 3 Zaki Ortiz MD [address] [place] [phone] Consulting Physician PULMONARY DISEASE 07/12/19 Concetta Acevedo MD [address] [place] [address] Surgeon NEUROLOGICAL SURGERY 12/16/22 Jeff Grace MD [address] [place], [place] [address] Consulting Physician INTERNAL MEDICINE 02/11/23 Brit Gonzáles MD [address] [place] [address] Consulting Physician CARDIOVASCULAR DISEASE 12/29/23 documented as of this encounter
--- OUTSIDE RECORDS SUMMARY | 2024-10-18 15:48 | XMS_ITS | Encounter Summary ---
Author Organization [facility] Address [address] [place] [address] Care Team Providers Care Enrober Name Role Phone Piyush Pandey MD Unavailable Unavailabl e Megan Infante MD Primary Care Provider [phone] Sharmila Davis APRN, NANOTECHNOLOGY ENGINEERING TECHNOLOGIST-C Unavailable [phone] Linda Block MD Unavailable [phone] Jeff Grace MD Unavailable Zaki Ortiz MD Unavailable [phone] Concetta Acevedo MD Unavailable + [phone] Jeff Grace MD Unavailable Brit Gonzáles MD Unavailable Encounter Details Date Type Department Care Team (Late st Contact Info) Description 11/06/2017 Abstract [facility] [address] [place] [address] , Generic Conversion, Social History Tobacco Use Types Packs/Day Years Used Date Smoking Tobacco: Former Smokeless Tobacco: Former Chew Alcohol Use Standard Drinks/Week Comments Yes 0 (1 standard drink = 0.6 oz pur e alcohol) 6 per week Sex and Gender Information Value Date Recorded Sex Assigned at Male 09/07/2024 10:18 PM WASTEWATER PROCESS ENGINEER Legal Sex Male 10:01 PM CDT Gender Identity Male 09/07/2024 10:18 PM WASTEWATER PROCESS ENGINEER Sexual Orientation Straight 09/07/2024 10 :18 PM WASTEWATER PROCESS ENGINEER Occupation Industry Job Start Date Job End Date Not on file Not on file Not on file Not on file documented as of this encounter Plan of Treatment Upcoming Encounters Date Type Department Care Team (Late st Contact Info) Description 10/26/2024 10:15 AM WASTEWATER PROCESS ENGINEER Telephone [facility] [address] [place] [address] Brit Gonzáles MD [address] [place], [place] [phone] 12/04/2024 10:00 AM CDT Office Visit [facility] [address] [place] [address] Brit Gonzáles MD [address] [place], [place] [phone] documented as of this encounter Visit Diagnoses Not on filedocumented in this encounter Additional Health Concerns Infection Onset Date Last Indicated Resolved Time COVID-19 Rule Out 03/02/2020 03/02/2020 03/03/2020 8:23 PM CDT COVID-19 Rule Out 07/03/2020 07/03/2020 07/04/2020 11:25 PM WASTEWATER PROCESS ENGINEER COVID-19 Rule Out 09/07/2020 09/07/2020 09/08/2020 5:52 PM WASTEWATER PROCESS ENGINEER COVID-19 Rule Out 10/05/2020 10/05/2020 10/06/2020 11:37 AM WASTEWATER PROCESS ENGINEER COVID-19 Rule Out 02/08/2021 02/08/2021 02/08/2021 9:06 PM CDT COVID-19 Rule Out 01/24/2022 01/24/2022 01/24/2022 6:41 PM CDT COVID-19 Rule Out 01/04/2023 01/04/2023 01/04/2023 10:12 AM CDT documented as of this encounter Care Teams Enrober Relationship Specialty Start Date End Date Megan Infante MD [address] [place] [phone] PCP - General FAMILY PRACTICE 04/06/16 Piyush Pandey MD [employer] Support Services Director CARDIOVASCULAR DISEASE 04/06/16 12/28/23 Sharmila Davis APRN, NANOTECHNOLOGY ENGINEERING TECHNOLOGIST-C [address] [phone] NURSE PRACTITIONER 01/04/17 04/03/24 Linda Block MD [address] [place] [phone] [employer] Instruction[employer] Support Services Director CLINICAL CARDIAC ELECTROPHYSIOLOGY 02/08/17 04/12/23 Jeff Grace MD [address] [phone] Consulting Physician INTERNAL MEDICINE 02/20/19 3 Zaki Ortiz MD [address] [place] [phone] Consulting Physician PULMONARY DISEASE 07/12/19 Concetta Acevedo MD [address] [place] [address] Surgeon NEUROLOGICAL SURGERY 12/16/22 Jeff Grace MD [address] [place], [place] [address] Consulting Physician INTERNAL MEDICINE 02/11/23 Brit Gonzáles MD [address] [place] [address] Consulting Physician CARDIOVASCULAR DISEASE 12/29/23 documented as of this encounter
== END 2024-10-18 13:51 | disposition home or self-care (01) ==
LOC: CHSLAB 13:52
PROVIDERS: PCP Family Medicine; Visit Provider Family Medicine
DX: I50.9 Heart failure, unspecified (principal)
CPT/HCPCS: 36415; 80048; 85025

== ENCOUNTER 2024-11-25 19:56 | Outpatient (CLI) | payer MEDICARE, SELFPAY ==
--- OUTSIDE RECORDS SUMMARY | 2024-11-25 20:00 | XMS_ITS ---
Author Organization [facility] Address [address] [place], [place] [phone] Care Team Providers Care Forest Pathology Professor Name Role Phone DonalRONALD baltazar Unavailable [phone] Megan Infante Unavailable Unavailable KARLA GUNN Unavailable [phone] REASON FOR VISIT *General care Medications Medication SIG (Take, Route, Frequency, Duration) Notes Start Date End Date Status Clotrimazole-Bet amethasone 1-0.05 % 1 application Externally Twice a day 07/06/2024 Active dofetilide 0.125 MG Oral Capsule [Tikosyn] ORAL dofetilide 0.125 MG Oral Capsule [Tikosyn]Original Medicationdofetilide 0.125 MG Oral Capsule [Tikosyn] *[facility] for eRx and Interaction Alerts* 09/10/2014 Active warfarin sodium 2 MG Oral Tablet [Coumadin] ORAL warfarin sodium 2 MG Oral Tablet [Coumadin]Original Medicationwarfarin sodium 2 MG Oral Tablet [Coumadin] *Reorder from [employer] for eRx and Interaction Alerts* 09/10/2014 Active glipiZIDE 5 MG Oral Tablet ORAL glipizide 5 MG Oral TabletOriginal Medicationglipizide 5 MG Oral Tablet *Reorder from [facility] for eRx and Interaction Alerts* 09/10/2014 Active Encounters Encounter Location Date Provider Diagnosis [facility] [address] [place], [place] [phone] 07/06/2024 KARLA GUNN Tinea unguium B35.1 ; Pain in right toe(s) M79.674 ; Pain in left toe(s) M79.675 ; Unspecified atherosclerosis of [place] arteries of extremities, bilateral legs I70.203 ; [...] - M79.675) 07/06/2024 Unspecified atherosclerosis of [place] arteries of extremities, bilateral legs (ICD-10 - [...] and prescription treatments. Unspecified atherosclerosis of [place] arteries of extremities, bilateral legs Patient educated [...] Details Follow Up: 3 Months, Reason: Provider Name:BARRERA ALFARO, 12/07/2024 11:30:00 AM, [address] [place] [address], [phone], Progress Notes * OBIE SIMS RDOB:1955 (68 yo M)Acc No.[id number]:07/06/2024 Patient: OBIE NORWOOD Provider: Crow GUNN :1955 A ge:68 Y S ex:Male Date:07/06/2024 Address:[address] [place], [place] [phone] Subjective: * Chief Complaints: * 1 . *General care. * HPI: H PI: General care P atient presents to the office for diabetic foot care. Patient states that their nails are thickened, elongated and painful. Patient states that it is aggravated by shoe gear. Onset is gradual., Patient is taking prescription blood thinners., Date last seen by Dr. Infante was 06/2024., Initials [facility]. * ROS: G eneral / Constitutional: Patient denies w eakness. R espiratory: Patient denies c hronic cough, shortness of breath, sputum production. C ardiovascular: Patient denies c hest pain, history of MD, irregular heartbeat. M usculoskeletal: Patient denies a [...] Medicationglipizide 5 MG Oral Tablet *Reorder from [employer] for eRx and Interaction Alerts*, Taking dofetilide 0.125 MG Oral Capsule [Tikosyn] ORAL , Notes to Pharmacist: dofetilide 0.125 MG Oral Capsule [Tikosyn]Original Medicationdofetilide 0.125 MG Oral Capsule [Tikosyn] *Reorder from [employer] for eRx and Interaction Alerts*, Taking warfarin sodium 2 MG Oral Tablet [Coumadin] ORAL , Notes to Pharmacist: warfarin sodium 2 MG Oral Tablet [Coumadin]Original Medicationwarfarin sodium 2 MG Oral Tablet [Coumadin] *Reorder from [facility] for eRx and Interaction Alerts* Objective: [...] 4 . U nspecified atherosclerosis of [place] arteries of extremities, bilateral legs - I70.203 5 . 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 T ype 2 diabetes mellitus with diabetic peripheral angiopathy without gangrene - E11.51 Plan: * Treatment: 2. U nspecified atherosclerosis of [place] arteries of extremities, bilateral legs Notes: Patient [...] Information: * Visit Code: * Procedure Codes: 10523 DEBRIDE NAIL, 6 OR MORE. Modifiers: Q8 * MAN APPRENTICE Sign off status: Completed true * Provider: Crow GUNN Date: 1 09/05/2023 Generated for Katiana watson/Kaitlyn/Mindy on: 0 11/25/2024 08:00 PM CDT History and Physical Notes * HPI (History [...]
--- OUTSIDE RECORDS SUMMARY | 2024-11-25 20:00 | XMS_ITS | Data Portability ---
Author Organization [facility], [address] [facility] ([place]) Address [address] [place] [address] Care Team Providers Care Loan Servicing Specialist Name Role Phone MASHA PINEDA Primary Care Provider KATINA BELTRAN Hotel Manager MASHA PINEDA Referring Provider [phone] Assessment Encounter Date Assessment Date Assessment LastModified [...] and Address Organization Details Recorded Time Hyperkalemia 82535359 Active 2023 Leatha york [facility] 4 10:23:34 Renal mass 047442049 Active 2023 Leatha york [facility] 4 10:23:41 Chronic kidney disease stage 3A 615982554 Active 2023 Leatha york [facility] 4 10:23:51 Congestive heart failure 25367368 [facility] Vitamin D deficiency 26527128 Active 2023 Leatha Deluna [facility] 4 10:24:17 Dyspnea 742777198 Active 2023 Leatha Deluna [facility] 4 10:24:26 Decreased renal function 50882482 Active 2023 Tano Potter [facility] 4 11:05:35 Problem Notes None recorded. Procedures [...] LastModified Time Prescript ion - New active Passenger Conductor: MILENARANI CHUYRAYMOND ([facility] This Week In Pulmonar y Medicine ) , Durable Med [...] % 120 mm[Hg] 72 mm[Hg] Leatha Deluna [facility] 4 11:55:08 Date Recorded Body height Heart rate Systolic blood pressure Diastolic blood pressure Provider Name and Address Organization Details Last Updated DateTime 06/15/2024 167.64 cm 91 /min 106 mm[Hg] 54 mm[Hg] Cristiano Mora [facility] 06/15/2024 11:30:13 Social History Question Answer Notes LastModified by Organizat ion Details LastModified Time Tobacco Smoking Status Former Smoker Leatha Deluna [facility] 10/02/2024 17:01:49 Do You Have An Advance [...] Do You Have A Medical Power Of Fraud Investigator? No [email or web address] Information not available 03/09/2024 What [...] SNOMED-CT Code Diagnosis ICD10 Code Diagnosis Note [id number] Katina Beltran MD [facility] ([place]) [address] [place] [address] 03/16/2024 11:28:49 03/16/2024 12:18:20 Chronic kidney disease stage 3A 741269328 N18.31 Decreased renal function 72745859 R94.4 Hyperkalemia 22271105 E8 7.5 Renal mass 843263704 N28 .89 Vitamin D deficiency 347 58763 E55.9 [id number] Theresa Sheriff PA-C [facility] ([place] [address] [place] [address] 06/15/2024 11:12:17 06/15/2024 11:50:06 Chronic kidney disease stage 3A 572733758 N18.31 Health Concerns Section Related Observation LastModified by Organization Juice ls LastModified Time None Recorded Concern Status LastModified by Organization Details LastModified Time None Recorded Advance Directives Directive N: Payers Encounter Date Sequence Insurance Name Policy Number Policy Vicente Covered Member ID Vicente Member ID Guarantor Name 03/16/2024 1 [place] Mendez Lay [id number] 1 Mendez Lay 06/15/2024 1 [place] Mendez Lay [id number] 1 Mendez Lay Notes Date Note Type [...] Levaquin therapy. Katina Beltran MD [address] [place] [address], [phone], [facility] 03/16/2024 12:17:49 06/15/2024 text/html Mr. Lay is [...] doing okay. Theresa Sheriff PA-C [address] [place] [address], [phone], [facility] 06/15/2024 17:23:12
--- OUTSIDE RECORDS SUMMARY | 2024-11-25 20:00 | XMS_ITS ---
Author Organization [facility] Address [address] [place], [place] [address] Care Team Providers Care Plant Tender Name Role Phone DonalRONALD baltazar Unavailable [phone] Megan Infante Unavailable Unavailable KARLA GUNN Unavailable [phone] REASON FOR VISIT *General care Encounters Encounter Location Date Provider Diagnosis [address] [id number] 09/07/2024 KARLA GUNN Plan Of Treatment Next Appt Details Provider Name:BARRERA ALFARO, 12/07/2024 11:30:00 AM, [address] [place] [address], [phone], Progress Notes * OBIE SIMS RDOB:1955 (69 yo M)Acc No.[id number]:09/07/2024 Patient: Philly DIASOBIE Provider: Crow GUNN :1955 A ge:69 Y S ex:Male Date:09/07/2024 Address:[address] [place], [place] [phone] Subjective: * Chief Complaints: * 1 . *General care. * Medical History: Objective: * Vitals: Assessment: Plan: * Treatment: * Billing Information: * Visit Code: * Procedure Codes: * Electronic signature of LUIS FERNANDO GUNN DPM on 11/25/2024 at 08:00 PM CDT Sign off status: Pending * Provider: Crow GUNN Date: 0 09/07/2024 Generated for Katiana watson/Kaitlyn/Mindy on: 0 11/25/2024 08:00 PM CDT
--- OUTSIDE RECORDS SUMMARY | 2024-11-25 20:00 | XMS_ITS ---
Author Organization [facility] Address [address] [place], [place] [address] Care Team Providers Care Windows Security Analyst Name Role Phone DonalRONALD baltazar Unavailable [phone] Megan Infante Unavailable Unavailable KARLA GUNN Unavailable [phone] REASON FOR VISIT *General care Medications Medication SIG (Take, Route, Frequency, Duration) Notes Start Date End Date Status warfarin sodium 2 MG Oral Tablet [Coumadin] ORAL warfarin sodium 2 MG Oral Tablet [Coumadin]Original Medicationwarfarin sodium 2 MG Oral Tablet [Coumadin] *Reorder from [employer] for eRx and Interaction Alerts* 09/10/2014 Active dofetilide 0.125 MG Oral Capsule [Tikosyn] ORAL dofetilide 0.125 MG Oral Capsule [Tikosyn]Original Medicationdofetilide 0.125 MG Oral Capsule [Tikosyn] *Reorder from [employer] for eRx and Interaction Alerts* 09/10/2014 Active glipiZIDE 5 MG Oral Tablet ORAL glipizide 5 MG Oral TabletOriginal Medicationglipizide 5 MG Oral Tablet *Reorder from [employer] for eRx and Interaction Alerts* 09/10/2014 Active Encounters Encounter Location Date Provider Diagnosis [facility] [address] [place], [place] [id number] 04/13/2024 KARLA GUNN Tinea unguium B35.1 ; Pain in right toe(s) M79.674 ; Pain in left toe(s) M79.675 ; Unspecified atherosclerosis of [place] arteries of extremities, bilateral legs I70.203 ; [...] (ICD-10 - M79.675) 04/13/2024 Unspecified atherosclerosis of [place] arteries of extremities, bilateral legs (ICD-10 - [...] OTC and prescription treatments. Unspecified atherosclerosis of [place] arteries of extremities, bilateral legs Patient educated [...] Reason: Provider Name:BARRERA ALFARO, 12/07/2024 11:30:00 AM, [address] [place] [address], [phone], Progress Notes * OBIE SIMS RDOB:1955 (68 yo M)Acc No.[id number]:04/13/2024 Patient: OBIE NORWOOD Provider: Crow GUNN :1955 A ge:68 Y S ex:Male Date:04/13/2024 Address:[address] [place], [place] [address] Subjective: * Chief Complaints: * 1 . [...] Patient denies c hest pain, history of VT, irregular heartbeat. M usculoskeletal: Patient denies a [...] Medicationglipizide 5 MG Oral Tablet *Reorder from [facility] for eRx and Interaction Alerts*, Taking dofetilide 0.125 MG Oral Capsule [Tikosyn] ORAL , Notes to Pharmacist: dofetilide 0.125 MG Oral Capsule [Tikosyn]Original Medicationdofetilide 0.125 MG Oral Capsule [Tikosyn] *Reorder from [facility] for eRx and Interaction Alerts*, Taking warfarin sodium 2 MG Oral Tablet [Coumadin] ORAL , Notes to Pharmacist: warfarin sodium 2 MG Oral Tablet [Coumadin]Original Medicationwarfarin sodium 2 MG Oral Tablet [Coumadin] *Reorder from [facility] for eRx and Interaction Alerts* Objective: * [...] M79.675 4 . U nspecified atherosclerosis of [place] arteries of extremities, bilateral legs - I70.203 5 . 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 T ype 2 diabetes mellitus with diabetic peripheral angiopathy without gangrene - E11.51 Plan: * Treatment: 2. U nspecified atherosclerosis of [place] arteries of extremities, bilateral legs Notes: Patient [...] Information: * Visit Code: * Procedure Codes: 02662 DEBRIDE NAIL, 6 OR MORE. Modifiers: Q8 * Sign off status: Completed true * Provider: Crow GUNN Date: 0 04/13/2024 Generated for Katiana watson/Octavio on: 0 11/25/2024 07:59 PM CDT History and Physical Notes * [...]
--- OUTSIDE RECORDS SUMMARY | 2024-11-25 20:01 | XMS_ITS | Patient Health Record ---
Author Organization [facility] Address [address] [place], [place] [address] Care Team Providers Care Yard Conductor Name Role Phone DonalRONALD baltazar Unavailable [phone] Megan Infante Unavailable Unavailable KARLA GUNN Unavailable [phone] Allergies No Known Allergies Reason For Referral No Information Medications Medication SIG (Take, Route, Frequency, Duration) Notes Start Date End Date Status Clotrimazole-Bet amethasone 1-0.05 % 1 application Externally Twice a day 07/06/2024 Active dofetilide 0.125 MG Oral Capsule [Tikosyn] ORAL dofetilide 0.125 MG Oral Capsule [Tikosyn]Original Medicationdofetilide 0.125 MG Oral Capsule [Tikosyn] *Reorder from [employer] [facility] for eRx and Interaction Alerts* 09/10/2014 Active warfarin sodium 2 MG Oral Tablet [Coumadin] ORAL warfarin sodium 2 MG Oral Tablet [Coumadin]Original Medicationwarfarin sodium 2 MG Oral Tablet [Coumadin] *Reorder from [employer] [facility] for eRx and Interaction Alerts* 09/10/2014 Active glipiZIDE 5 MG Oral Tablet ORAL glipizide 5 MG Oral TabletOriginal Medicationglipizide 5 MG Oral Tablet *Reorder from [employer] [facility] for eRx and Interaction Alerts* 09/10/2014 Active Immunizations Vaccine Route Administration Date Status Comme nts Influenza, high dose seasonal Unknown 06/04/2023 Admini stered Vital Signs Height-cm 167.64 cm 01/13/2024 Weight-kg 90.72 kg 01/13/2024 Height 66.00 in 01/13/2024 Weight 200 lbs 01/13/2024 BMI 32.28 kg/m2 01/13/2024 Encounters Encounter Location Date Provider Diagnosis [address] [id number] 01/13/2024 KARLA GUNN Tinea unguium B35.1 ; Pain in right toe(s) M79.674 ; Pain in left toe(s) M79.675 ; Unspecified atherosclerosis of [place] arteries of extremities, bilateral legs I70.203 ; Xerosis cutis L85.3 and Type 2 diabetes mellitus with diabetic peripheral angiopathy without gangrene E11.[address] [id number] 04/13/2024 KARLA GUNN Tinea unguium B35.1 ; Pain in right toe(s) M79.674 ; Pain in left toe(s) M79.675 ; Unspecified atherosclerosis of [place] arteries of extremities, bilateral legs I70.203 ; Xerosis cutis L85.3 and Type 2 diabetes mellitus with diabetic peripheral angiopathy without gangrene E11.[address] [id number] 07/06/2024 KARLA GUNN Tinea unguium B35.1 ; Pain in right toe(s) M79.674 ; Pain in left toe(s) M79.675 ; Unspecified atherosclerosis of [place] arteries of extremities, bilateral legs I70.203 ; Xerosis cutis L85.3 and Type 2 diabetes mellitus with diabetic peripheral angiopathy without gangrene E11.51 Assessments Encounter Date Diagnosis (ICD Code) Assessment Notes Treatment Notes Treatment Clinical Notes Section Notes 01/13/2024 Tinea unguium (ICD-10 - B35.1) Aseptic [...] in left toe(s) (ICD-10 - M79.675) 01/13/2024 Unspecified atherosclerosis of [place] arteries of extremities, bilateral legs (ICD-10 - I70.203) Patient educated on risks and aggravating factors of PVD, including conservative treatment options such as a diet and exercise regimen to aid in slowing progression of vascular disease 04/13/2024 Unspecified atherosclerosis of [place] arteries of extremities, bilateral legs (ICD-10 - I70.203) Patient educated on risks and aggravating factors of PVD, including conservative treatment options such as a diet and exercise regimen to aid in slowing progression of vascular disease 07/06/2024 Unspecified atherosclerosis of [place] arteries of extremities, bilateral legs (ICD-10 - [...] to be applied to feet daily. 01/13/2024 Type 2 diabetes mellitus with diabetic [...] Details Provider Name:BARRERA ALFARO, 12/07/2024 11:30:00 AM, [address] [place] [address], [phone], Insurance Providers Payer Name Payer Address Payer Phone Subscriber Number Group Number Insured Name Patient Relationship to Insured Coverage Start Date Coverage End Date [employer] [address] [place] [phone] [id number] OBIE SIMS Self - patient is the insured [employer] [facility] [place] [address] [id number] OBIE SIMS Self - patient is the insured
--- OUTSIDE RECORDS SUMMARY | 2024-11-25 20:01 | XMS_ITS ---
Author Organization [facility] Care Team Providers Care Outboard Motorboat Rigger Name Role Phone Kely Atkins Unavailable Unavailable Brennan Gimenez Unavailable Unavailable Allergies and adverse reactions No Known Allergies Care Team Name Role Address Phone Organization Dates Brennan Gimenez [address], [facility], [facility] (Office): : [facility] 01/04/2023 - 01/08/2023 Kely Atkins Attending Physician [address] [place] [address], [facility], [facility] (Office): : [facility] 01/04/2023 - 01/08/2023 Immunizations Immunization Status Vaccine Details Vaccine Code CodeSystem Date Notes TB 2 Step Mantoux Skin Test completed tuberculin skin test; unspecified formulation lotNumber: [id number] expiry: 08/14/2023 Mfg: Tuberculin Purified Protein Derivative, Aplisol Given 0.1 ml Left Forearm intradermally Step 1 of Multi-step 98 CVX created date: 01/04/2023 consent date: 01/04/2023 administere d date: 01/05/2023 Pneumovax 23 Dose 1 completed pneumococcal polysaccharide vaccine, 23 valent 33 CVX created date: 01/04/2023 administere d date: 04/17/2012 SARS-COV-2 (COVID-19) completed SARS-COV-2 (COVID-19) vaccine, mRNA, spike protein, LNP, preservative free, 30 mcg/0.3mL dose, fan-sucrose formulation Mfg: [employer]eli[employer] Step 1 of Multi-step 217 CVX created date: 01/04/2023 administere d date: 07/29/2021 SARS-COV-2 (COVID-19) completed SARS-COV-2 (COVID-19) vaccine, mRNA, spike protein, LNP, preservative free, 30 mcg/0.3mL dose, fan-sucrose formulation Mfg: [employer] Step 2 of Multi-step with next step required 217 CVX created date: 01/04/2023 administere d date: 11/14/2020 SARS-COV-2 (COVID-19) completed SARS-COV-2 (COVID-19) vaccine, mRNA, spike protein, LNP, preservative free, 30 mcg/0.3mL dose, fan-sucrose formulation Mfg: [employer] Step 1 of Multi-step with next step required 217 CVX created date: 01/04/2023 administere d date: 10/16/2020 Mental Status Section Date Assessment Total Score Description 01/08/2023 BIMS 15 cognitively int act CAM 0 No delirium ind icated PHQ-9 12 moderate depres praveena Problems Problem # Description Date of onset Resolved Date Code CodeSystem Concern Status 1 ACUTE ON CHRONIC COMBINED SYSTOLIC (CONGESTIVE) AND DIASTOLIC (CONGESTIVE) HEART FAILURE 01/05/[address] active 2 ANXIETY DISORDER, UNSPECIFIED 01/05/[address] active 3 ATHEROSCLEROSIS OF [place] ARTERIES OF RIGHT LEG WITH ULCERATION OF OTHER PART OF LOWER LEG 01/05/[address] active 4 CELLULITIS OF RIGHT LOWER LIMB 01/05/[address] active 5 CHRONIC KIDNEY DISEASE, STAGE 3 UNSPECIFIED 01/05/[address] active 6 CHRONIC OBSTRUCTIVE PULMONARY DISEASE, UNSPECIFIED 01/05/[address] active 7 HYPERLIPIDEMIA, UNSPECIFIED 01/05/[address] active 8 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 4 CHRONIC KIDNEY DISEASE, OR UNSPECIFIED CHRONIC KIDNEY DISEASE 01/05/[address] active 9 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 01/05/[address] active 10 MILD PERSISTENT ASTHMA, UNCOMPLICATED 01/05/[address] active 11 PAROXYSMAL ATRIAL FIBRILLATION 01/05/[address] active 12 PULMONARY HYPERTENSION, UNSPECIFIED 01/05/[address] active 13 RESTLESS LEGS SYNDROME 01/05/[address] active 14 TYPE 2 DIABETES MELLITUS WITHOUT COMPLICATIONS 01/05/[address] active 15 UNSPECIFIED OSTEOARTHRITIS, UNSPECIFIED SITE 01/05/[address] active Reason for Referral No Reasons for Referral Entered Social History Social History Observation Description Start Date End Date Code Code System Current Smoking Status Tobacco smoking consumption unknown 790868695 SNOMED CT Sex Assigned At Male 1955 [address]-2 [facility] Vital Signs Code Code System Vitals Name Values and Units Timing Information 9279-1 [facility] Respiratory Rate Value=16.0 Units=/m in 01/08/2023 8462-4 [facility] Blood Pressure-Diastolic Value=63 Un its=mmHg 01/08/2023 8480-6 [facility] Blood Pressure-Systolic Hooyb=603 Un its=mmHg 01/08/2023 8310-5 [facility] Body Temperature Value=97.3 Units= F 01/08/2023 8867-4 [facility] Heart rate Value=79.0 Units=/min 2339-0 [facility] Blood Sugar Gdlse=889.0 Units=mg/dL 01/08/2023 96237-4 [facility] Pain Level Value=0.0 01/08/2023 17786-7 [facility] O2 % BldC Oximetry Value=97.0 Units= % 01/08/2023 33236-0 [facility] Weight Aleud=234.9 Units=Lbs 8302-2 [facility] Height Value=67.0 Units=Inches 01/04/2023
--- NOTE | 2024-12-08 19:40 | WPDSLEEPSTUD ---
Sleep Study Date of Study: 11/25/24 Ordering Provider: Megan Infante MD Interpreting Physician: Libra Joyce MD Sleep Study Type: Split Polysomnogram Height: 1.68 m Weight: 97.522 kg Body Mass Index: 34.7 Neck Circumference (inches): 16.5 Sheldon: 5 Sleep History Mendez Lay is a 69-year-old man with a long history of poor sleep, and has a history of obstructive sleep apnea, intolerant to PAP therapy. His significant medical comorbidities include hypertension, heart disease with congestive heart failure, diabetes and acid reflux. He has had prior sleep studies that have resulted in his use of oxygen at night. He recently had a hospitalization with another sleep study for possible BiPAP. He has difficulty falling asleep and staying asleep. In addition of oxygen, he has also use sleeping pills. He occasionally wakes at night with heartburn, belching or coughing.??He rarely snores, and never snores loudly enough that others complain. He rarely has trouble sleeping when he has a cold. He never wakes up gasping for breath during the night. He never has breathing problems at night witnessed by others. He never sweats excessively at night. He never notices his heart pounding or beating irregularly during the night. He frequently falls asleep during the day. He frequently falls asleep involuntarily, however never falls asleep while driving. He never experiences loss of muscle tone with strong emotion. He never has daytime difficulty at work due to excessive sleepiness, retired. He never feels paralyzed on waking or falling asleep. He rarely experiences vivid dreams upon waking or falling asleep. He never feels afraid of going to sleep. He rarely has nightmares. He never recalls his dreams. He never has thoughts racing through his mind. He occasionally feels sad or depressed. He occasionally feels anxiety. He constantly notices parts of his body jerk, including legs and arms. He occasionally kicks during the night. He constantly feels crawling or aching feelings in his legs. He constantly feels leg pain at night. He never has morning jaw pain, never grinds his teeth at night. He frequently feels bothered by pain during the day, constantly awakened by pain during the night. He occasionally wakes up feeling stiff in the morning, and he occasionally wakes feeling sore or achy. He occasionally awakens with pain in his neck, spine, or joints. He has fatigue and palpitations. He finds that it is difficult for him to relax. Normal bedtime is between 2:00 a.m. and 3:00 a.m. with a very inconsistent amount of time required to fall asleep. He wakes up during the night but there is no usual number of times. He often falls asleep in the recliner and then moved to his bed in the middle of the night. He falls asleep watching television. He usually awakens somewhere between 10:00 a.m. and 11:00 a.m.. He estimates getting between 6 and 7 hours of sleep overnight. He keeps the same schedule on weekends. He may doze off during the day but does not call his episodes of sleep naps. He is definitely not refreshed after a short 10-15 minute nap. He feels better in the afternoon compared to other times of day. Habits:??Tobacco: former smoker Caffeine: 2 servings per day Alcohol: none Recreational substances: none [facility] Past Medical History Medical History (Updated 12/08/24 @ 20:32 by Libra Joyce MD) Obstructive sleep apnea Obstructive sleep apnea Intolerant to CPAP Chronic anemia Chronic right-sided heart failure Moderate decreased right ventricular systolic function noted on echo 12/2022 Combined systolic and diastolic congestive heart failure Echocardiogram 12/2022: EF 37% grade 2 diastolic dysfunction, mild LVH Severe pulmonary hypertension Restless leg syndrome CVA (cerebral vascular accident) Evidence of old temporal CVA noted on imaging 12/22/2023 Bilateral carotid artery stenosis Peripheral artery disease Right rib fracture Diabetes mellitus Historically poorly controlled with last A1c 10/2023 of 10.2 CKD (chronic kidney disease) Stage IV with baseline creatinine 1.4-1.8 Depression COPD (chronic obstructive pulmonary disease) Diabetic neuropathy Gout Afib On chronic anticoagulation with Coumadin CAD (coronary artery disease) Nuclear medicine stress test 01/2022: Medium area of [id number] intensity fixed defect consistent with infarction in the inferior and basal inferior knox, EF is 51% Hyperlipidemia Surgical History Surgical History History of left hip replacement History of bilateral knee replacement History of aortic valve replacement with bioprosthetic valve (~2013) History of cardiac catheterization Family History Family History Mother Tuberculosis Social History Social History Social History: The patient is for with for 46 years. His a couple of years ago. He now lives with his daughter. He ambulates with a cane. 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 He briefly smoked when he was young for 1 or 2 years. He denies any significant alcohol use or illicit substance use. Code status: Full code Smoking packs per day: 1 Smoking cigarettes per day: 20.0 Years smoked: 2 Smoking pack-years: 2.00 Smoking status: Former smoker Tobacco type: cigarettes Smokeless tobacco user: chewing tobacco Second hand tobacco smoke exposure: Yes Smoking end date: 09/02/1967 Alcohol intake: never Drinks per week: 2 Substance use: never Substance use type: does not use Do You Feel Safe in your Home?: Yes Lack of Transportation: No Lack of Food: Never True Current Housing: I Have Housing Concerned About Future Housing: No Difficulty Paying Gas/Electric Bills: No Difficulty Paying for Meds: No Currently Unemployed: No Education: High School Diploma/GED Difficulty w/ Childcare or Family Care: No Gender identity (if verbalized by the patient): Male Sexual Orientation (if Verbalized by the Patient): Straight or Heterosexual Spiritual care concerns: No Medications Home Medications ?Medication ?Instructions ?Recorded ?Confirmed ?Type albuterol sulfate 90 mcg/actuation 2 puff inhalation Q4H PRN 07/03/20 09/21/24 History aerosol inhaler (Ventolin HFA) Shortness Of Breath allopurinol 300 mg tablet 300 mg PO DAILY 07/03/20 09/21/24 History atorvastatin 80 mg tablet 80 mg PO HS 07/03/20 09/21/24 History pantoprazole 40 mg tablet,delayed 40 mg PO DAILY 07/03/20 09/21/24 History release sertraline 50 mg tablet 50 mg PO DAILY 07/03/20 09/21/24 History docusate sodium 100 mg capsule 100 mg PO DAILY PRN Constipation 02/01/22 09/21/24 History fluticasone fur. 100 mcg-umeclid 1 inh inhalation DAILY 02/09/23 09/21/24 History 62.5 mcg-vilant 25 mcg inhalat.powder (Trelegy Ellipta) hydroxyzine HCl 50 mg tablet 50 mg PO TID PRN itch 02/09/23 09/21/24 History folic acid 1 mg tablet 1 mg PO DAILY 08/28/24 09/21/24 History nystatin 100,000 unit/gram topical 1 applic topical BID 08/28/24 09/21/24 History powder (Nystop) pregabalin 150 mg capsule (Lyrica) 150 mg PO BID 08/28/24 09/21/24 History semaglutide 1 mg/dose (4 mg/3 mL) 1 mg subcut WEEKLY 08/28/24 09/21/24 History subcutaneous pen injector (Ozempic) semaglutide 1 mg/dose (4 mg/3 mL) 1 mg subcut WEEKLY 08/28/24 09/21/24 History subcutaneous pen injector (Ozempic) aspirin 81 mg chewable tablet 81 mg PO DAILY 09/21/24 09/21/24 History clotrimazole-betamethasone 1 1 applic topical BID 09/21/24 09/21/24 History %-0.05 % topical cream insulin glargine 100 unit/mL (3 18 unit subcut QPM 09/21/24 09/21/24 History mL) subcutaneous pen (Lantus Solostar U-100 Insulin) insulin lispro 100 unit/mL 6 unit subcut .with meals 09/21/24 09/21/24 History subcutaneous pen bumetanide 2 mg tablet 2 mg PO BID #60 tabs 10/04/24 Rx empagliflozin 25 mg tablet 25 mg PO DAILY #30 tabs 10/04/24 Rx (Jardiance) hydrocodone 7.5 mg-acetaminophen 1 tablet PO Q8H PRN Pain, Moderate 10/04/24 Rx 325 mg tablet #20 tabs metoprolol succinate 25 mg 25 mg PO DAILY #30 tabs 10/04/24 09/21/24 Rx tablet,extended release 24 hr trazodone 100 mg tablet 300 mg (3 x 100 mg) PO HS insomnia 10/04/24 Rx #90 tabs warfarin 2 mg tablet 2 mg PO DAILY #30 tabs 10/04/24 Rx warfarin 5 mg tablet 5 mg PO DAILY #30 tabs 10/04/24 Rx Sleep Procedure A split night polysomnogram using the [facility] multi-channel system recorded the standard physiologic parameters including EEG, EOG, submentalis EMG, anterior tibialis EMG, EKG, body position, nasal and oral airflow using nasal pressure sensor and thermistor. Respiratory parameters of chest and abdominal movements were recorded with Respiratory Inductance Plethysmography belts. Oxygen saturation was recorded by pulse oximetry. Video monitoring was also performed. Sleep stages, periodic limb movements, and EEG arousals were scored in 30 second epochs according to the criteria of the AASM Scoring Manual. The Apnea-Hypopnea Index was calculated using CMS guidelines for definition of hypopnea while scoring respiratory events. He self-administered trazodone 2 pills of 100 mg at the start of the study. He had 2 bathroom visits during the night in used 3 pillows for comfort. Even with 200 mg traodone, he had a sleep latency of 65.5 minutes. After the baseline portion the patient met criteria for a titration with an AHI of 63.5 and desaturation to 80%. He initially used a medium ResMed Med [place] nasal pillows, later switched to a medium ResMed AirFit F30 I fullface mask with heated humidity, initial pressure was CPAP 5 cm, 7 cm, 8 cm, 9 cm and the final pressure was 10 cm. Although he did not have an ideal pressure, CPAP 8 cm did look the best of the ones attempted during this split night study. At CPAP 8 cm, he spent 20 minutes in bed, all of it was in non-REM sleep. His sleep efficiency was 100%. His residual apnea-hypopnea index was 15 and his mean saturation was 91%. His apnea-hypopnea index was much higher on all other pressures, without REM during the night. He has an extremely low ejection fraction in the 30s. He does not have significant central apneas. He had a treatment emergent central apnea index of 5.5. This patient may require a full night titration however getting his apnea-hypopnea index from 63 events per hour down to 15 with stabilization of his oxygenation and 100% sleep efficiency is a huge improvement. I am recommending starting with CPAP 8 cm, following up and see how he feels with treatment, adding sleep hygiene measures and possibly a weighted blanket of 12 lb for his restless legs / periodic limb movements disorder. Sleep Architecture During the diagnostic portion of the study, the total recording time was 263.1 minutes. The total sleep time was 127.5 minutes. Sleep latency was 65.5 minutes. He had no REM. Sleep Efficiency was 48.5%. The patient had 44 awakenings for an awakening index of 20.7. Wake after sleep onset time was 70.0 minutes. The patient spent 65.5 minutes, 51.4% of total sleep time in Stage N1. The patient spent 62.0 minutes, 48.6% in Stage N2. The patient spent no time in Stage N3 or Stage REM sleep. At 02:31:46 AM the patient was placed on PAP treatment and was titrated at pressures ranging from 5 cm to 11 cm. During the treatment portion of the study, the total recording time was 154.4 minutes. The total sleep time was 77.0 minutes. Sleep latency was 1.0 minutes. There was no REM, so no REM latency. Sleep Efficiency was 49.9%. Wake after Sleep Onset time was 76.0 minutes. The patient spent 39.0 minutes, 50.6% of total sleep time in Stage N1. The patient spent 25.5 minutes, 33.1% in Stage N2. The patient spent 12.5 minutes, 16.2% in Stage N3. The patient spent no time in Stage REM. Respiratory Analysis During the diagnostic portion of the study, the patient had 100 hypopneas, 35 obstructive apneas, no mixed apneas, and no central apneas for an overall Apnea Hypopnea Index of 63.5 events per hour. The REM Apnea Hypopnea Index was0, due to not having REM. The NREM Apnea Hypopnea Index was 63.5. The patient had a Central Apnea Hypopnea Index of 0. There were no Respiratory Effort Related Arousals. The Respiratory Disturbance Index is 64.0 events per hour. There was no evidence of Stevie-Hernandez Respirations. During the treatment portion of the study, the patient had 39 hypopneas, 4 obstructive apneas, no mixed apneas, and 7 central apneas for an overall Apnea Hypopnea Index of 39.0 events per hour. The REM Apnea Hypopnea Index was 0, no REM on this portion either. The NREM Apnea Hypopnea Index was 39.0. The patient had a Central Apnea Hypopnea Index of 5.5. There were no Respiratory Effort Related Arousals. The Respiratory Disturbance Index is 42.1 events per hour. There was no evidence of Stevie-Hernandez Respirations. Arousals During the diagnostic portion of the study, there were a total of 228 arousals for an arousal index of 107.3. There were 95 respiratory arousals for an index of 44.7. There were 100 periodic limb movement arousals for an index of 47.1. There were 11 isolated limb movement arousals for an index of 5.2. There were 22 spontaneous arousals for an index of 10.4. During the treatment portion of the study, there were a total of 90 arousals for an index of 70.1. There were 33 respiratory arousals for an index of 25.7. There were 28 periodic limb movement arousals for an index of 21.8. There were 11 isolated limb movement arousals for an index of 8.6. There were 18 spontaneous arousals for an index of 14.0. Periodic Limb Movements During the diagnostic portion of the study, the patient had 15 isolated limb movements with an index of 7.1. The patient had 115 periodic limb movements with an index of 54.1. The patient had a total of 130 limb movements with a total limb movement index of 61.2. During the treatment portion of the study, the patient had 25 isolated limb movements with an index of 19.5. The patient had 67 periodic limb movements with an index of 52.2. The patient had a total of 92 limb movements with a total limb movement index of 71.7. Oximetry Data During the diagnostic portion of the study, the patient had an average oxygen saturation of 91% in wake with a minimum oxygen saturation of 81% and a maximum oxygen saturation of 97%. The patient had an average oxygen saturation of 90.8% in sleep with a minimum oxygen saturation of 80% and a maximum oxygen saturation of 98%. The patient had 171 oxygen desaturations resulting in an Oxygen Desaturation Index of 80.5. The patient spent 39.8 minutes, 15.9% of total sleep time with an oxygen saturation less than 88%. During the treatment portion of the study, the patient had an average oxygen saturation of 93.9% in wake with a minimum oxygen saturation of 85% and a maximum oxygen saturation of 99%. The patient had an average oxygen saturation of 93.2% in sleep with a minimum oxygen saturation of 87% and a maximum oxygen saturation of 98%. The patient had 68 oxygen desaturations resulting in an Oxygen Desaturation Index of 53.0. The patient spent 2.3 minutes, 1.8% of total sleep time with an oxygen saturation less than 88%. Snoring Profile Snoring was rare, moderate intensity. This improved with the titration of CPAP. Cardiac Profile EKG shows atrial fibrillation with frequent PVCs, average pulse rate was 71.7 bpm. The minimum pulse rate was 55 bpm. The maximum pulse rate was 87 bpm. No arrhythmias noted. During the treatment portion, EKG showed atrial fibrillation again with PVCs, average pulse rate 69 beats per minute, minimum pulse 52 beats per minute, maximum pulse 84 beats per minute. No arrhythmias seen. EEG Profile EEG was unremarkable, no evidence of seizures. Assessment and Plan Assessment and Plan (1) Obstructive sleep apnea: Code(s): G47.33 - Obstructive sleep apnea (adult) (pediatric) Status: Acute Assessment and Plan: This split night sleep study on 11/25/2024 shows severe obstructive sleep apnea, the apnea-hypopnea index is 63.5 with desaturation to 80%, rare moderate intensity snoring, and no REM on the baseline or during the titration. He had intense pain throughout the night and did not sleep well. He had a prolonged sleep latency despite taking trazodone 200 mg at the beginning of the study. The best pressure during this study was CPAP 8 cm. At this pressure, the patient slept for 20 minutes and all of the sleep was in non-REM. He had 12.5 minutes of Stage N3 sleep which is recovery sleep. It was uninterrupted, consolidated sleep. The sleep efficiency was 100% on CPAP 8 cm. The residual apnea-hypopnea index was 15 and the lowest sat was 88%, mean saturation 91%. On higher pressures, his apnea-hypopnea index ranged from 43-65. He had few treatment emergent centrals during the titration. I recommend CPAP 8 cm using a medium ResMed AirFit F30 I fullface mask and heated humidity. The patient should be prescribed this ResMed equipment as well as tubing, filters and reservoir. This should be used with all episodes of sleep. Compliance should be reviewed within 31-90 days of starting therapy for usage greater than 4 hours per night greater than 70% of the nights. The patient should be asked about symptoms such as excessive daytime sleepiness, quality of sleep, decreased nocturia, increased mental functioning such as memory, mood, and concentration. He may benefit from using his machine with naps to get used to the feeling of the mask. He has an extremely low ejection fraction, 37%. He does not have significant central apneas. He had a treatment emergent central apnea index of 5.5. This patient may require a full night titration however getting his apnea-hypopnea index from 63 events per hour down to 15 with stabilization of his oxygenation and 100% sleep efficiency is a huge improvement. I am recommending starting with CPAP 8 cm, following up and see how he feels with treatment, adding sleep hygiene measures and possibly a weighted blanket of 12 lb for his restless legs / periodic limb movements disorder. BMI is 34. Weight management is advised. Clinical data suggests that weight loss of 10% can reduce the severity of respiratory events and snoring and improve AHI by as much as 25%. (2) PLMD (periodic limb movement disorder): Code(s): G47.61 - Periodic limb movement disorder Status: Acute Assessment and Plan: The patient has a history of frequent uncomfortable feelings in his legs at night as well as kicking at night and leg movements that wake him. His problem list shows restless legs syndrome. His study confirmed that leg movements cause arousals during sleep. His periodic limb movement index was elevated, 54 on the baseline, 52 during treatment. Normal PLM arousal index is < 15 events per hour. His periodic limb movement arousal index was 47 on baseline and 21.8 during treatment. This suggests that he may continue to improve with decreasing limb movement arousals with adequate CPAP therapy after at least a month or more of treatment. His ferritin level was 72 ng/mL on November 16, 2023. This is about normal. He has chronic anemia which can worsen RLS and PLM disorder. It does not appear that iron deficiency anemia is driving this. He is on pregabalin 150 mg b.i.d. which is for his neuropathy. He takes sertraline which can increase periodic limb movements during sleep. There are nonpharmacologic methods to treat limb movements including daily exercise, stretching calf muscles before bed, avoiding excessive amounts of caffeine and alcohol, vitamin B supplementation, magnesium lotion massaged into legs before bed, and use of a weighted blanket. (3) Inadequate sleep hygiene: Code(s): Z72.821 - Inadequate sleep hygiene Status: Acute Assessment and Plan: The patient does not keep of fixed bedtime and wake time. He often falls asleep in the chair than transfers to the bed during the night. He has excruciating pain which is probably why he is in the chair in the evening, trying to get comfortable to fall asleep. If he wants to sleep in the chair all night, he can have the CPAP by his recliner and use it at a fixed bedtime, earlier in the night. He may find that he is more comfortable sleeping in the bed using CPAP and keeping regular hours. Recommendations to improve sleep quality include: ? Practice a bedtime routine and keep the same sleep schedule including bedtime and wake up time, even on the weekends. Consistency makes it much easier to fall asleep and wake easily. ? If you have trouble sleeping at night, avoid naps, especially in the late afternoon. However, short naps lasting approximately 20 minutes can help alleviate daytime fatigue, sleepiness, and even provide cognitive benefit. Naps longer than 30 minutes can cause sleep inertia, a period of reduced alertness and cognitive performance after waking. ? Exercise daily. ? Maintain a sleep environment conducive to sleep. The bedroom should be comfortably cool. In population studies, nocturnal environmental light and noise significantly impact sleep quality and quantity. Use of blackout curtains, ear plugs, or sound machines may help promote an optimal sleep environment for individuals with sleep disruptions due to environmental stimuli. ? Sleep on a comfortable mattress and pillows. ? Regular bright light exposure in the mornings may help to maximize alertness and maintain a regular circadian rhythm. Studies in extreme latitudes where sunlight is minimal in the winter have found that an hour of exposure to white light in the morning helped subjects go to sleep earlier and wake earlier. Exposure to blue light in the morning may have more robust effects on the stability of the circadian rhythm and has been shown to improve daytime fatigue and sleepiness. ? Avoid caffeine and heavy meals in the evening. While alcohol use does seem to reduce the time it takes to fall asleep, studies have reported that evening alcohol intake can cause more waking time or light sleep in the second half of the night and reduce self-reported sleep quality. Evening nicotine is associated with lower sleep efficiency and more awake time during the night. ? Wind down with quiet activities that may promote sleep, such as reading with a dim light. Avoid use of electronics at least 30 minutes before habitual bedtime and in the middle of the night if nocturnal awakenings occur. The blue light emitted from computer screens and hand-held devices can suppress natural melatonin production, resulting in difficulty falling asleep; however, the exact duration of use and intensity of lighting that cause this effect are variable in the literature. ? If you cannot sleep, do not look at a clock. Go into another room and do something relaxing until you feel drowsy enough to fall asleep again, then return to bed. Data The data obtained during this sleep study is adequate for interpretation. Certification This sleep study has been reviewed by a board certified sleep medicine physician.
[2024-12-08 20:55] VITALS: BMI 34.7
== END 2024-11-26 06:30 | disposition home or self-care (01) ==
PROVIDERS: PCP Family Medicine; Visit Provider Family Medicine
DX: G47.33 Obstructive sleep apnea (adult) (pediatric) (principal); G47.61 Periodic limb movement disorder; Z68.34 Body mass index [BMI] 34.0-34.9, adult
CPT/HCPCS: 95811

== ENCOUNTER 2025-02-02 09:52 | Outpatient (NON) | payer MEDICARE, SELFPAY ==
--- OUTSIDE RECORDS SUMMARY | 2025-02-02 10:04 | XMS_ITS | Continuity of Care Document ---
Author Organization [facility], [facility] ([place]) Address [address] [place] [address] Care Team Providers Care Electronic Instrument Trades Worker Name Role Phone MASHA PINEDA Primary Care Provider [phone] KATINA FRANCIS Heavy Equipment Engine Mechanic MASHA PINEDA Referring Provider [phone] Assessment Encounter Date Assessment Date Assessment LastModified by Organization Details LastModified Time 02/01/2025 02/01/2025 Mr. Lay is a pleasant 69-year-old male with a past medical history significant [...] recent serum creatinine is noted to be 1.7 ,with GFR 43 Fluid and electrolyte balance are adequate. pt recently admitted to hospital He is currently on Bumex 3 mg p.o. daily however he has continuing to have worsening lower extremity edema I will increase the Bumex to 2 mg p.o. twice daily He is also on metolazone 2.5 mg daily Continue patient on the current dosage Patient was advised on checking daily weights and will follow up on the patient next week regarding his weights Follow-up in the office in 4 to 6 weeks This was communicated with the patient's daughter as well. Non-nephrotic range proteinuria secondary to longstanding history of type 2 diabetes mellitus as well as hypertension Patient is currently on Entresto. Patient is [...] of all medications to the appropriate GFR Hypertension Patient's blood pressure is under good [...] plan and intent to comply with it. tyler Not available 02/01/2025 16:49:07 Plan of Treatment Reminders Order Date Submit Date Provider Last Modified By Organization Details Last Modified Time Details Appointments Danielito west Patient 15.EST 2024 02:30P M Dr. Katina Francis Not available Not available Not available Lab None recorde d. Referral None recorde d. Procedures None recorde d. Surgeries None recorde d. Imaging None recorde d. Medication Orders None recorde d. Patient TargetsNo targets recorded. Patient InstructionsNo instructions recorded. Reason for Referral None Reported. Problems Name Problem SNOMED Code Status Onset Date Resolution Date Notes Provider Name and Address Organization Details Recorded Time [facility]199610 [facility] Hyperkalemia 18563423 [facility] 10:23:34 Renal mass 575833180 Active 2023 Leatha Deluna [facility] 4 10:23:41 Chronic kidney disease stage 3A 795552415 Active 2023 Leatha Deluna [facility] 4 10:23:51 Congestive heart failure 73495345 Active 2023 Leatha Deluna [facility] 4 10:24:00 Vitamin D deficiency 51861737 Active 2023 Leatha Deluna [facility] 4 10:24:17 Dyspnea 899111695 Active 2023 Leatha Deluna [facility] 4 10:24:26 Decreased renal function 23139201 Active 2023 Tano Tariq [facility] 4 11:05:35 Problem Notes None recorded. [...] LastModified Time Prescript ion - New active Sex Therapist: SOO SR ([facility] Pulmonar y [facility] [...] active Not Available Not Available Not Available bumetanid e 2 mg tablet Take 1 tablet every day by oral route, for fluid ioverloa d. 2024 active Not Available Not Available Not Avai lable clindamyc in HCl 300 mg capsule 03/16 [...] e Micro Pen Needle 32 gauge x 1/ active Not Available Not Available Not Available [...] mg-100 mg tablets in a dose pack (Moderate Renal Dose) TAKE 1 TABLET BY MOUTH TK 2 NIRMATRE LVIR TS AND 1 RITONAVI R T TOGETHER PO 10/02 completed Not Available Not Available Not Available Ozempic 0.25 mg or 0.5 mg (2 mg/3 mL) subcutane ous pen injector 03/16 completed Not Available Not Available Not Available Vitals Date Recorded Body height Body mass index (BMI) Body weight Heart rate Oxygen saturation Oxygen saturation in Arterial blood by Pulse oximetry Systolic blood pressure Diastolic blood pressure Provider Name and Address Organization Details Last Updated DateTime 5 167.64 cm 22.3 kg/m2 58677.7 5 g 70 /min 96 % 96 % 134 mm[Hg] 80 mm[Hg] Leatha Deluna [facility] 12:41:31 Social History Question Answer Notes LastModified by Organizat ion Details LastModified Time Tobacco Smoking Status Former Smoker Leatha Deluna chela, [facility] 10/02/2024 17:01:49 Do You Have An Advance Directive? No [email or web address] Information not available 03/09/2024 What Is Your Level Of Caffeine Consumption? Moderate [email or web address] Information not available 03/09/2024 How Many Times Per Week Do You Exercise? Less Than 1 Time Per Week [email or web address] Information not available 03/09/2024 Smokeless Tobacco? Former Smokeless Tobacco User [email or web address] Information not available 03/09/2024 When Did You Quit Smoking? 1980 [email or web address] Information not available 03/09/2024 Do You Have A Medical Power Of Promotion Officer? No [email or web address] Information not available 03/09/2024 What Was The Date Of Your Most Recent Tobacco Screening? 03/16/2024 [email or web address] Information not available 03/09/2024 What Is Your Relationship Status? [email or web address] Information not available 03/09/2024 Sex: Unknown Functional Status Question Answer Note LastModified by Organizat ion Details LastModified Time How many times per week do you consume alcohol? 1-2 times per week [email or web address] Information not available 03/09/2024 Do you use any illicit or recreational drugs? No [email or web address] Information not available 03/09/2024 What is your level of alcohol consumption? Occasional [email or web address] Information not available 03/09/2024 Are you currently employed? No [email or web address] Information not available 03/09/2024 What is your occupation? Retired [email or web address] Information not available 03/09/2024 What is your exercise level? Occasional [email or web address] [...] SNOMED-CT Code Diagnosis ICD10 Code Diagnosis Note [id number] Katina Francis MD [facility] ([place]) [address] [place] [address] 02/01/2025 12:03:20 02/01/2025 13:09:05 Chronic kidney disease stage 3A 866797460 N18.31 follow up in 3-4 mons. cbc,rfp microalbum in Hyperkalemia 97698373 E8 7.5 Renal mass 924485700 N28 .89 Health Concerns Section Related Observation LastModified by Organization Detai ls LastModified Time None Recorded Concern Status LastModified by Organization Details LastModified Time None Recorded Payers Encounter Date Sequence Insurance Name Policy Number Policy Vicente Covered Member ID Vicente Member ID Guarantor Name 02/01/2025 1 [employer] (MEDICARE REPLACEMENT/ ADVANTAGE - PPO) [id number] Mendez Lay [id number] Mendez Lay Notes Date Note Type Note Provider Name and Address Organization Details Recorded Time 02/01/2025 text/html Mr. Lay is a pleasant 69-year-old male with a past medical history significant for type 2 diabetes mellitus with microvascular and macrovascular complications since 2004, hypertension, hyperlipidemia, CAD, valve replacement on chronic Coumadin therapy, GERD on pantoprazole is here for follow-up on his ALICIA with underlying chronic kidney disease. Baseline serum creatinine ranges between 1.1-1.3 however since March 2022 his serum creatinine level has been between 1.3-1.5. Chronic indwelling Oneill catheter He denies having any chest pain, shortness of breath or palpitations however he has been having worsening lower extremity edema and gaining weight He denies having any nausea, vomiting or diarrhea Denies having any lightheadedness or dizziness He has a chronic indwelling Oneill catheter Katina Francis MD [address] [place], [address], [facility] 02/01/2025 16:50:59
--- OUTSIDE RECORDS SUMMARY | 2025-02-02 10:04 | XMS_ITS | Data Portability ---
Author Organization [facility], [address] [facility] ([place]) Address [address] [place] [address] Care Team Providers Care Repair Table Operator Name Role Phone MASHA PINEDA Primary Care Provider KATINA BELTRAN Manual Qa Tester MASHA PINEDA Referring Provider [phone] Assessment Encounter Date Assessment Date Assessment LastModified [...] Details Appointments Danielito west Patient 15.EST 2024 11:15A M Dr. Katina Beltran Not available Not available Not available Danielito west Patient 15.EST 2024 02:30P M Dr. Katina Beltran Not available Not [...] and Address Organization Details Recorded Time Hyperkalemia 75895617 Active 2023 Leatha york [facility] 4 10:23:34 Renal mass 758305165 Active 2023 Leatha york [facility] 4 10:23:41 Chronic kidney disease stage 3A 542258085 Active 2023 Leatha Deluna [facility] 4 10:23:51 Congestive heart failure 19751547 Active 2023 Leatha Deluna [facility] 4 10:24:00 Vitamin D deficiency 98691586 Active 2023 Leatha Deluna [facility] 4 10:24:17 Dyspnea 969175057 Active 2023 Leatha Deluna [facility] 4 10:24:26 Decreased renal function 09124263 Active 2023 Tano Potter [facility] 4 11:05:35 Problem Notes None recorded. [...] LastModified Time Prescript ion - New active Dragger Out: SOO SR ([facility] Pulmonar y Medicine ) , Durable [...] Updated DateTime 5 167.64 cm 22.3 kg/m2 29514.7 5 g 70 /min 96 % 96 % 134 mm[Hg] 80 mm[Hg] [facility] 5 12:41:31 Date Recorded Body height Heart rate Oxygen saturation Oxygen saturation in Arterial blood by Pulse oximetry Systolic blood pressure Diastolic blood pressure Provider Name and Address Organization Details Last Updated DateTime 4 167.64 cm 77 /min 99 % 99 % 120 mm[Hg] 72 mm[Hg] Leatha [facility] 4 11:55:08 Date Recorded Body height Heart rate Systolic blood pressure Diastolic blood pressure Provider Name and Address Organization Details Last Updated DateTime 06/15/2024 167.64 cm 91 /min 106 mm[Hg] 54 mm[Hg] Cristiano Mora [facility] 06/15/2024 11:30:13 Social History Question Answer Notes LastModified by [employer] Details LastModified Time Tobacco Smoking Status [facility] 10/02/2024 17:01:49 Do You Have An [...] Do You Have A Medical Power Of Audit Reviewer? No [email or web address] Information not available 03/09/2024 What Was The Date Of Your Most Recent Tobacco Screening? 03/16/2024 [email or web address] Information not available 03/09/2024 What Is Your Relationship Status? [email or web address] Information not available 03/09/2024 Sex: Unknown Functional Status Question Answer Note LastModified by [employer] Details LastModified Time How many times per [...] available 03/09 12:07:17 Medical History Condition Response Attention-deficit Hyperactivity Disorder N High Blood Pressure N Thyroid Problems N COPD Y Depression N Anemia N Diabetes Y Anxiety Disorder N Bleeding Disorder N Arthritis Y Hyperlipidemia N Cancer N Stroke N Asthma N Seizures N Heart Disease Y Fibromyalgia N Osteoporosis N Kidney Disease Y Past Encounters Encounter ID Performer Location Encounter Start Date Encounter Closed Date Diagnosis/Indication Diagnosis SNOMED-CT Code Diagnosis ICD10 Code Diagnosis Note [id number] Katina Beltran MD [facility] ([place]) [address] [place] [address] 03/16/2024 11:28:49 03/16/2024 12:18:20 Chronic kidney disease stage 3A 195368120 N18.31 Decreased renal function 47660922 R94.4 Hyperkalemia 16986598 E8 7.5 Renal mass 202815703 N28 .89 Vitamin D deficiency 347 57239 E55.9 [id number] Theresa Sheriff PA-C [facility] ([place]) [address] [place] [address] 06/15/2024 11:12:17 06/15/2024 11:50:06 Chronic kidney disease stage 3A 341145276 N18.31 [id number] Katina Beltran MD [facility] ([place]) [address] [place] [address] 02/01/2025 12:03:20 02/01/2025 13:09:05 Chronic kidney disease stage 3A 620293346 N18.31 follow up in 3-4 mons. cbc,rfp microalbum in Hyperkalemia 98805419 E8 7.5 Renal mass 395932381 N28 .89 Health Concerns Section Related Observation LastModified by Organization Detai ls LastModified Time None Recorded Concern Status LastModified by Organization Details LastModified Time None Recorded Advance Directives Directive N: Payers Insurance Date Sequence Insurance Name Policy Number Policy Vicente Covered Member ID Vicente Member ID Guarantor Name 06/19/2024 1 [place] Mendez Lay [id number] Mendez Lay 10/24/2024 2 [facility] (MEDICARE SUPPLEMENT) Mendez Lay [id number] Mendez Lay 01/27/2025 1 [employer] (MEDICARE REPLACEMENT/ ADVANTAGE - PPO) [id number] Mendez Lay [id number] Mendez Lay Notes Date Note Type Note [...] currently on Levaquin therapy. Katina Beltran MD [facility] [address], [address], [facility] 03/16/2024 12:17:49 06/15/2024 text/html Mr. Lay [...] doing okay. Theresa Sheriff PA-C [address] [facility], [place], [address], [facility] 06/15/2024 17:23:12
--- OUTSIDE RECORDS SUMMARY | 2025-02-02 10:04 | XMS_ITS | Patient Health Record ---
Author Organization [facility] Address [address] [place], [place] [address] Care Team Providers Care Sewer Inspector Name Role Phone Donaldelaney RONALD Unavailable [phone] Megan Infante Unavailable Unavailable KARLA GUNN Unavailable [phone] BARRERA NEGRETE Unavailable [phone] Allergies No Known Allergies Reason For Referral No Information Medications Medication SIG (Take, Route, Frequency, Duration) Notes Start Date End Date Status Clotrimazole-Bet amethasone 1-0.05 % 1 application Externally Twice a day 07/06/2024 Active dofetilide 0.125 MG Oral Capsule [Tikosyn] ORAL dofetilide 0.125 MG Oral Capsule [Tikosyn]Original Medicationdofetilide 0.125 MG Oral Capsule [Tikosyn] *Reorder from Cloud Floor for eRx and Interaction Alerts* 09/10/2014 Active warfarin sodium 2 MG Oral Tablet [Coumadin] ORAL warfarin sodium 2 MG Oral Tablet [Coumadin]Original Medicationwarfarin sodium 2 MG Oral Tablet [Coumadin] *Reorder from Cloud Floor for eRx and Interaction Alerts* 09/10/2014 Active glipiZIDE 5 MG Oral Tablet ORAL glipizide 5 MG Oral TabletOriginal Medicationglipizide 5 MG Oral Tablet *Reorder from Cloud Floor for eRx and Interaction Alerts* 09/10/2014 Active Immunizations Vaccine Route Administration Date Status Comme nts Influenza, high dose seasonal Unknown 06/04/2023 Admini stered Encounters Encounter Location Date Provider Diagnosis [facility] [address] [place], [place] [id number] 04/13/2024 KARLA GUNN Tinea unguium B35.1 ; Pain in right toe(s) M79.674 ; Pain in left toe(s) M79.675 ; Unspecified atherosclerosis of [place] arteries of extremities, bilateral legs I70.203 ; Xerosis cutis L85.3 and Type 2 diabetes mellitus with diabetic peripheral angiopathy without gangrene E11.51 [facility] [address] [place], [place] [id number] 07/06/2024 KARLA GUNN Tinea unguium B35.1 ; Pain in right toe(s) M79.674 ; Pain in left toe(s) M79.675 ; Unspecified atherosclerosis of [place] arteries of extremities, bilateral legs I70.203 ; [...] (ICD-10 - M79.675) 04/13/2024 Unspecified atherosclerosis of [place] arteries of extremities, bilateral legs (ICD-10 - I70.203) Patient educated on risks and aggravating factors of PVD, including conservative treatment options such as a diet and exercise regimen to aid in slowing progression of vascular disease 07/06/2024 Unspecified atherosclerosis of [place] arteries of extremities, bilateral legs (ICD-10 - [...] Date Coverage End Date [employer] [address] [place] [address] [id number] OBIE SIMS Self - patient is the insured [employer] [address] [place] [address] [id number] OBIE SIMS Self - patient is the insured
--- OUTSIDE RECORDS SUMMARY | 2025-02-02 10:05 | XMS_ITS ---
Author Organization [facility] Address [address] [place], [place] [address] Care Team Providers Care Industrial Electrician Journeyman Name Role Phone DonalRONALD baltazar Unavailable [phone] Megan Infante Unavailable Unavailable BARRERA NEGRETE Unavailable [phone] REASON FOR VISIT *General care-in hospital Encounters Encounter Location Date Provider Diagnosis [address] [id number] 01/04/2025 BARRERA NEGRETE Plan Of Treatment No Information Progress Notes * OBIE SIMS RDOB:1955 (69 yo M)Acc No.[id number]:01/04/2025 Patient: Philly DIASOBIE Provider: Randy NEGRETE :1955 A ge:69 Y S ex:Male Date:01/04/2025 Address:[address] [place], [place] [phone] Subjective: * Chief Complaints: * 1 . *General care-in hospital. * Medical History: Objective: * Vitals: Assessment: Plan: * Treatment: * Billing Information: * Visit Code: * Procedure Codes: * Electronic signature of TITUS NEGRETE DPM on 02/02/2025 at 10:04 AM CDT Sign off status: Pending * Provider: Randy NEGRETE Date: 0 01/04/2025 Generated for Katiana ng/Faelidia/eTransmitting on: 02/02/2025 10:04 AM CDT
[2025-02-02 10:45] LABS: Anion Gap 7 mmol/L (4-12); Blood Urea Nitrogen 47 mg/dL (9-20); Calcium 8.3 mg/dL (8.4-10.2); Carbon Dioxide 28 mmol/L (22-30); Chloride 104 mmol/L (98-107); Estimated Glomerular Filt Rate 34; Glucose 101 mg/dL (65-110); Osmolality Calculated 300 mOsm/kg (285-295); Potassium 3.6 mmol/L (3.4-5.0); Sodium 139 mmol/L (137-145)
[2025-02-02 10:54] LABS: NT Pro B Type Natriuretic Pept 4360 pg/mL (19.9-100)
== END 2025-02-02 09:53 | disposition home or self-care (01) ==
LOC: CHSLAB 09:57
PROVIDERS: PCP Family Medicine; Visit Provider Nurse Practitioner Family
DX: I50.9 Heart failure, unspecified (principal)
CPT/HCPCS: 36415; 80048; 83880

== ENCOUNTER 2025-03-12 23:03 | Emergency (ER) | payer MEDICARE, SELFPAY ==
--- NOTE | ~2025-03-12 | XR_ITS ---
EXAMINATION: XR chest 1V portable Exam Date/Time: 03/12/2025 23:17 CDT HISTORY: sob Comparison: 08/31/2024. RESULT: Lines, tubes, and devices: ACDF hardware. Intact sternotomy wires. Cardiac valve replacement. Lungs and pleura: Low volumes with crowding. Cardiomediastinal silhouette: Stable. Other: No acute osseous or upper abdominal finding. IMPRESSION: No acute cardiopulmonary process. Reviewed, dictated and finalized at location K.
[2025-03-12 23:03] VITALS: PULSE 68
[2025-03-12 23:04] VITALS: BP 96/72; PULSE 65; RESP 18; TEMP 36.4; O2SAT 93
--- OUTSIDE RECORDS SUMMARY | 2025-03-12 23:06 | XMS_ITS | Encounter Summary ---
Author Organization [facility] Address [address] [place] [address] Care Team Providers Care Semiconductors Wafer Breaker Name Role Phone Megan Infante MD Primary Care Provider [phone] Zaki Ortiz MD Unavailable [phone] Concetta Acevedo MD Unavailable + [phone] Jeff Grace MD Unavailable Brit Gonzáles MD Unavailable Cirilo Pal MD Unavailable [phone] Corrie Pickard RN Unavailable Unavailab le Encounter Details Date Type Department Care Team (Late st Contact Info) Description 03/12/2025 Orders Only [facility] [address] [place] [address] Brennan Hernandez MD [address] [place] [address] Social History Tobacco Use Types Packs/Day Years Used Date Smoking Tobacco: Former Passive Smoke Exposure: Past Smokeless Tobacco: Former Chew Alcohol Use Standard Drinks/Week Comments Yes 0 (1 standard drink = 0.6 oz pur e alcohol) 4 beers per week OASIS D0700: Social Isolation Answer Da te Recorded Frequency of experiencing loneliness or isolatio n Never 03/11/2025 OASIS A1250: Transportation Answer Date Recorded Lack of Transportation (Medical) No 03/11/2025 Lack of Transportation (Non-Medical) No 03/11/2025 Patient Unable or Declines to Respond No 03/11/2025 OASIS B1300: Health Literacy Answer Stevenson e Recorded Frequency of needing help to read materials from doctor or pharmacy Sometimes 03/11/2025 B1300 Health Literacy Answer Date Recor ded How often do you need to hav e someone help you when you read instructions, pamphlets, or other written material from your doctor or pharmacy? Often 01/10/[address] [facility] Utilities Answer Date Recorded In the past 12 months has [facility] [employer], [employer], or water [employer] threatened to shut off services in your home? No 02/28/2025 Humiliation, Afraid, Rape, and Kick questionnair e Answer Date Recorded Within the last year, have y ou been afraid of your partner or ex-partner? No 02/28/2025 Within the last year, have y ou been humiliated or emotionally abused in other ways by your partner or ex-partner? No Within the last year, have y ou been kicked, hit, slapped, or otherwise physically hurt by your partner or ex-partner? No 02/28/2025 Within the last year, have y ou been raped or forced to have any kind of sexual activity by your partner or ex-partner? No 02/28/2025 Social Connection and Isolation Panel [NHANES] A nswer Date Recorded In a typical week, how many times do you talk on the phone with family, friends, or neighbors? Three times a week 01/10/2025 How often do you get togethe r with friends or relatives? Once a week 01/10/2025 How often do you attend chur ch or scientology services? Never 01/10/2025 Do you belong to any clubs o r organizations such as sabianism groups, unions, fraternal or athletic groups, or school groups? No 01/10/2025 How often do you attend meet ings of the clubs or organizations you belong to? Never 01/10/2025 Are you , , di vorced, , never , or living with a partner? 01/10/2025 AUDIT-C Answer Date Recorded Q1: How often do you have a drink containing alc ohol? Monthly or less 01/10/2025 Q2: How many drinks containi ng alcohol do you have on a typical day when you are drinking? 1 or 2 01/10/2025 Q3: How often do you have si x or more drinks on one occasion? Never 01/10/2025 Overall Financial Resource Strain (CARDIA) Answe r Date Recorded How hard is it for you to pa y for the very basics like food, housing, medical care, and heating? Not very hard 02/28/2025 PHQ-2 Answer Date Recorded PHQ-2 Score - If the patient scores above 3, please move on to questions 3-9 0 12/01/2021 [facility] - Occupational Stress Questionnaire Answer Date Recorded Do you feel stress - tense, restless, nervous, or anxious, or unable to sleep at night because your mind is troubled all the time - these days? Very much 01/10/2025 Exercise Vital Sign Answer Date Recorde d On average, how many days pe r week do you engage in moderate to strenuous exercise (like a brisk walk)? 0 days 01/10/2025 On average, how many minutes do you engage in exercise at this level? 0 min 01/10/2025 Hunger Vital Sign Answer Date Recorded Within the past 12 months, y ou worried that your food would run out before you got the money to buy more. Never true 02/29/20 25 Within the past 12 months, t he food you bought just didn't last and you didn't have money to get more. Never true 02/28/2025 PRAPARE - Transportation Answer Date Re corded In the past 12 months, has l ack of transportation kept you from medical appointments or from getting medications? No 04/2025 In the past 12 months, has l ack of transportation kept you from meetings, work, or from getting things needed for daily living? No 02/28/2025 Housing Stability Vital Sign Answer Stevenson e [...] care home (including now)? Patient declined 07/12/2023 Housing Stability Vital Sign Answer Stevenson e Recorded In the last 12 months, was t here a time when you were not able to pay the mortgage or rent on time? No 02/28/2025 In the past 12 months, how m any times have you moved where you were living? 0 02/28/2025 At any time in the past 12 m onths, were you homeless or living in a care home (including now)? No 02/28/2025 Sex and Gender Information Value Date Recorded Sex Assigned at Male 09/07/2024 10:18 PM FLAME CHANNELER Legal Sex Male 10:01 PM CDT Gender Identity Male 09/07/2024 10:18 PM FLAME CHANNELER Sexual Orientation Straight 09/07/2024 10 :18 PM FLAME CHANNELER Occupation Industry Job Start Date Job End Date Not on file Not on file Not on file Not on file documented as of this encounter Functional Status * Are you deaf or do you have serious difficulty hearing Answer Date of Assessment Author Status No 02/28/2025 8:17 PM Tip Barrera RN Active * Are you blind or do you have serious difficulty seeing, even when wearing glasses? Answer Date of Assessment Author Status No 02/28/2025 8:17 PM Tip Barrera RN Active * Do you have serious difficulty walking or climbing stairs? Answer Date of Assessment Author Status Yes 02/28/2025 8:17 PM Tip Barrera RN Active * Do you have difficulty dressing or bathing? Answer Date of Assessment Author Status Yes 02/28/2025 8:17 PM Tip Barrera RN Active * Because of a physical, mental, or emotional condition, do you have difficulty doing errands alone such as visiting a doctor's office or shopping? Answer Date of Assessment Author Status No 02/28/2025 8:17 PM Tip Barrera RN Active documented as of this encounter Mental Status * Because of a physical, mental, or emotional condition, do you have serious difficulty concentrating, remembering, or making decisions? Answer Entry Date Author Status No 02/28/2025 8:17 PM Tip Barrera RN Active documented in this encounter Plan of Treatment Upcoming Encounters Date Type Department Care Team (Late st Contact Info) Description 03/13/2025 10:00 AM CDT Home Care Visit [facility] [address] [place] [address] Dari Payne LPN 03/13/2025 10:00 AM CDT Home Care Visit [facility] [address] [place] [address] Spring Gilbert, PT [address] [place], [place] [address] 03/16/2025 9:15 AM CDT Home Care Visit [facility] [address] [place] [address] Dari Payne LPN 03/20/2025 9:45 AM CDT Home Care Visit [facility] [address] [place] [address] Mallika Dean, RN 03/23/2025 12:45 PM CDT Home Care Visit [facility] [address] [place] [address] Dair Payne LPN 03/28/2025 8:00 AM CDT Appointment [facility] [address] [place] [address] Cecile Hills, RN [phone] (Work) 04/02/2025 11:15 AM CDT Appointment [facility] [address] [place] [address] Brit Gonzáles MD [address] [place] [address] 04/12/2025 1:00 PM CDT [facility] [address] [place] [address] Lobo Allred, E COMMERCE MARKETING MANAGER [address] [place] [address] 05/23/2025 11:45 AM CDT Office Visit [facility] [address] [place] [address] Brit Gonzáles MD [address] [place] [address] 08/08/2025 1:45 PM FLAME CHANNELER Office Visit [facility] [place] [address] [place] [address] Brit Gonzáles MD [address] [place], [place] [address] Scheduled Orders Name Type Priority Associated Diagnoses Orde r Schedule BASIC METABOLIC PANEL Lab Routine Encounter for general adult medical examination without abnormal findings Expected: 03/12/2025, Expires: 03/12/2026 documented as of this encounter Goals Goal Patient Goal Type Associated Problems Recent Progress Patient-Stated? Author Family - family caregiver with be involved in care transitions and discharge planning Lifestyle No Karen Quezada RN documented as of this encounter Visit Diagnoses Diagnosis Encounter for general adult medical examination without abnormal findings Unspecified general medical examination documented in this encounter Additional Health Concerns Assessment Noted Time PHQ-9 Depression Total Score: 0 12/02/19 22 1:18 PM CDT documented as of this encounter Care Teams Semiconductors Wafer Breaker Relationship Specialty Start Date End Date Megan Infante MD [address] [place] [address] PCP - General FAMILY PRACTICE 04/06/16 Zaki Ortiz MD [address] [place] [address] Consulting Physician PULMONARY DISEASE 07/12/19 Concetta Acevedo MD [address] [place] [address] Surgeon NEUROLOGICAL SURGERY 12/16/22 Jeff Grace MD [address] [place] [address] Consulting Physician INTERNAL MEDICINE 02/11/23 Brit Gonzáles MD [address] [place] [address] Consulting Physician CARDIOVASCULAR DISEASE 12/29/23 [place] [address] [place] [address] OPHTHALMOLOGY 12/04/24 Corrie Pickard, academic interventionist (Ambulatory) REGISTERED NURSE 12/26/24 documented as of this encounter
--- OUTSIDE RECORDS SUMMARY | 2025-03-12 23:06 | XMS_ITS | Patient Health Record ---
Author Organization [facility] Address [address] [place], [place] [address] Care Team Providers Care Bargeman Name Role Phone BARRERA NEGRETE Unavailable [phone] Megan Infante Unavailable Unavailable VELIA KARLA Unavailable [phone] Allergies No Known Allergies Reason For Referral No Information Medications Medication SIG (Take, Route, Frequency, Duration) Notes Start Date End Date Status warfarin sodium 2 MG Oral Tablet [Coumadin] ORAL warfarin sodium 2 MG Oral Tablet [Coumadin]Original Medicationwarfarin sodium 2 MG Oral Tablet [Coumadin] *Reorder from [employer] for eRx and Interaction Alerts* 09/10/2014 Active Clotrimazole-Bet amethasone 1-0.05 % 1 application Externally Twice a day 07/06/2024 Active glipiZIDE 5 MG Oral Tablet ORAL glipizide 5 MG Oral TabletOriginal Medicationglipizide 5 MG Oral Tablet *Reorder from [employer] for eRx and Interaction Alerts* 09/10/2014 Active dofetilide 0.125 MG Oral Capsule [Tikosyn] ORAL dofetilide 0.125 MG Oral Capsule [Tikosyn]Original Medicationdofetilide 0.125 MG Oral Capsule [Tikosyn] *Reorder from [employer] for eRx and Interaction Alerts* 09/10/2014 Active Immunizations Vaccine Route Administration Date Status Comme nts Influenza, high dose seasonal Unknown 06/04/2023 Admini stered Vital Signs Height-cm 167.64 cm 02/22/2025 Weight-kg 90.72 kg 02/22/2025 Height 66.00 in 02/22/2025 Weight 200 lbs 02/22/2025 BMI 32.28 kg/m2 02/22/2025 Encounters Encounter Location Date Provider Diagnosis [address] [id number] 02/22/2025 BARRERA NEGRETE Tinea unguium B35.1 ; Pain in right toe(s) M79.674 ; Pain in left toe(s) M79.675 ; Unspecified atherosclerosis of [place] arteries of extremities, bilateral legs I70.203 and Type 2 diabetes mellitus with diabetic peripheral angiopathy without gangrene E11.[address] [id number] 04/13/2024 KARLA GUNN Tinea unguium B35.1 ; Pain in right toe(s) M79.674 ; Pain in left toe(s) M79.675 ; Unspecified atherosclerosis of [place] arteries of extremities, bilateral legs I70.203 ; Xerosis cutis L85.3 and Type 2 diabetes mellitus with diabetic peripheral angiopathy without gangrene E11.[address] [id number] 07/06/2024 KARLA GUNN Tinea unguium B35.1 ; Pain in right toe(s) M79.674 ; Pain in left toe(s) M79.675 ; Unspecified atherosclerosis of [place] arteries of extremities, bilateral legs I70.203 ; [...] Pain in right toe(s) (ICD-10 - M79.674) 02/22/2025 Tinea unguium (ICD-10 - B35.1) Aseptic debridement of elongated thickened nails x 10 using sterile nippers, nails were debrided in length and thickness by 30% utilizing a nail nipper without incident. The patient was told to keep feet dry and change socks. The patient was told to be careful with old shoes and excessive sweating. 02/22/2025 Pain in right toe(s) (ICD-10 - M79.674) 02/22/2025 Pain in left toe(s) (ICD-10 - M79.675) 07/06/2024 Pain in left toe(s) (ICD-10 - M79.675) 04/13/2024 Pain in left toe(s) (ICD-10 - M79.675) 04/13/[address] [place] arteries of extremities, bilateral legs (ICD-10 - I70.203) Patient educated on risks and aggravating factors of PVD, including conservative treatment options such as a diet and exercise regimen to aid in slowing progression of vascular disease 07/06/[address] [place] arteries of extremities, bilateral legs (ICD-10 - I70.203) Patient educated on risks and aggravating factors of PVD, including conservative treatment options such as a diet and exercise regimen to aid in slowing progression of vascular disease 02/22/[address] [place] arteries of extremities, bilateral legs (ICD-10 - I70.203) Patient educated on risks and aggravating factors of PVD, including conservative treatment options such as a diet and exercise regimen to aid in slowing progression of vascular disease 02/22/2025 Type 2 diabetes mellitus with diabetic peripheral [...] not limited to nausea, vomiting, fever. 07/06/2024 Xerosis cutis (ICD-10 - L85.3) The [...] Treatment Next Appt Details Provider Name:BARRERA ALFARO, 04/26/2025 09:50:00 AM, [address] [place] [address], [phone], Insurance Providers Payer Name Payer Address Payer Phone Subscriber Number Group Number Insured Name Patient Relationship to Insured Coverage Start Date Coverage End Date [facility] [address] [address] [place], [place] [id number] OBIE SIMS Self - patient is the insured
--- OUTSIDE RECORDS SUMMARY | 2025-03-12 23:06 | XMS_ITS | Encounter Summary ---
Author Organization [facility] Address [address] [place] [address] Care Team Providers Care Final Cigar And Box Examiner Name Role Phone Piyush Pandey MD Unavailable [phone] Megan Infante MD Primary Care Provider [phone] Sharmila Davis APRN, NP-C Unavailable [phone] Linda Block MD Unavailable [phone] Jeff Grace MD Unavailable Zaki Ortiz MD Unavailable [phone] Concetta Acevedo MD Unavailable [phone] Jeff Grace MD Unavailable Brit Gonzáles MD Unavailable Cirilo Pal MD Unavailable [phone] Corrie Pickard RN Unavailable Unavailab Encounter Details Date Type Department Care Team (Late st Contact Info) Description 03/29/2017 Abstract [facility] [address] [place] [address] Piyush Pandey MD [address] [place] [address] Social History Tobacco Use Types Packs/Day Years Used Date Smoking Tobacco: Former Smokeless Tobacco: Former Chew Alcohol Use Standard Drinks/Week Comments Yes 0 (1 standard drink = 0.6 oz pur e alcohol) 6 per week Sex and Gender Information Value Date Recorded Sex Assigned at Male 09/07/2024 10:18 PM QUALITATIVE EXECUTIVE RESEARCHER Legal Sex Male 10:01 PM CDT Gender Identity Male 09/07/2024 10:18 PM QUALITATIVE EXECUTIVE RESEARCHER Sexual Orientation Straight 09/07/2024 10 :18 PM QUALITATIVE EXECUTIVE RESEARCHER Occupation Industry Job Start Date Job End Date Not on file Not on file Not on file Not on file documented as of this encounter Plan of Treatment Upcoming Encounters Date Type Department Care Team (Late st Contact Info) Description 03/13/2025 10:00 AM CDT Home Care Visit [facility] [address] [place] [address] Dari Payne LPN 03/13/2025 10:00 AM CDT Home Care Visit [facility] [address] [place] [address] Spring Gilbert, PT [address] [place] [address] 03/16/2025 9:15 AM CDT Home Care Visit [facility] [address] [place] [address] Dari Payne LPN 03/20/2025 9:45 AM CDT Home Care Visit [facility] [address] [place] [address] Mallika Dean RN 03/23/2025 12:45 PM CDT Home Care Visit [facility] [address] [place] [address] Dari Payne LPN 03/28/2025 8:[address] [facility] [address] [place] [address] Cecile Hills RN [phone] (Work) 04/02/2025 11:15 AM CDT Appointment [facility] [address] [place] [address] Brit Gonzáles MD [address] [place] [address] 04/12/2025 1:00 PM CDT Office Visit [facility] d [address] [place] [address] Lobo Allred, SENIOR CREDIT OFFICER [address] [place] [address] 05/23/2025 11:45 AM CDT Office Visit [address] [place] [phone] Brit Gonzáles MD [address] [place] [address] 08/08/2025 1:45 PM QUALITATIVE EXECUTIVE RESEARCHER Office Visit [facility] [address] [place] [address] Brit Gonzáles MD [address] [place] [address] documented as of this encounter Visit Diagnoses Not on filedocumented in this encounter Additional Health Concerns Infection Onset Date Last Indicated Resolved Time COVID-19 Rule Out 03/02/2020 03/02/2020 03/03/2020 8:23 PM CDT COVID-19 Rule Out 07/03/2020 07/03/2020 07/04/2020 11:25 PM QUALITATIVE EXECUTIVE RESEARCHER COVID-19 Rule Out 09/07/2020 09/07/2020 09/08/2020 5:52 PM QUALITATIVE EXECUTIVE RESEARCHER COVID-19 Rule Out 10/05/2020 10/05/2020 10/06/2020 11:37 AM QUALITATIVE EXECUTIVE RESEARCHER COVID-19 Rule Out 02/08/2021 02/08/2021 02/08/2021 9:06 PM CDT COVID-19 Rule Out 01/24/2022 01/24/2022 01/24/2022 6:41 PM CDT COVID-19 Rule Out 01/04/2023 01/04/2023 01/04/2023 10:12 AM CDT documented as of this encounter Care Teams Final Cigar And Box Examiner Relationship Specialty Start Date End Date Megan Infante MD [address] [facility] [address] [place] [address] PCP - General FAMILY PRACTICE 04/06/16 Piyush Pandey MD [address] [place] [phone] Henderson Contract Admin CARDIOVASCULAR DISEASE 04/06/16 12/28/23 Sharmila Davis APRN, SENIOR CREDIT OFFICER-C [address] [place] [phone] NURSE PRACTITIONER 01/04/17 04/03/24 Linda Block MD [address] [phone] [employer] Contract Admin CLINICAL CARDIAC ELECTROPHYSIOLOGY 02/08/17 04/12/23 Jeff Grace MD [address] [phone] Consulting Physician INTERNAL MEDICINE 02/20/19 3 Zaki Ortiz MD [address] [place] [phone] Consulting Physician PULMONARY DISEASE 07/12/19 Concetta Acevedo MD [address] [place] [id number] Surgeon NEUROLOGICAL SURGERY 12/16/22 Jeff Grace MD [address] [place] [address] Consulting Physician INTERNAL MEDICINE 02/11/23 Brit Gonzáles MD [address] [place] [address] Consulting Physician CARDIOVASCULAR DISEASE 12/29/23 [place] [address] [place] [address] OPHTHALMOLOGY 12/04/24 Corrie Pickard, pulvi mixer operator (Ambulatory) REGISTERED NURSE 12/26/24 documented as of this encounter
--- OUTSIDE RECORDS SUMMARY | 2025-03-12 23:06 | XMS_ITS | Clinical Summary ---
Author Organization [facility] Address [address] [place] [address] Care Team Providers Care Tech Brazer Tester Name Role Phone Megan Infante MD Primary Care Provider [phone] Zaki Ortiz MD Unavailable [phone] Concetta Acevedo MD Unavailable + [phone] Jeff Grace MD Unavailable Brit Gonzáles MD Unavailable Cirilo Pal MD Unavailable [phone] Corrie Pickard RN Unavailable Unavailab le Allergies No known active allergies Medications albuterol sulfate HFA 108 (90 Base) MCG/ACT inhalerIndicati ons:Shortness of breath Inhale 2 puffs into the lungs every 4 (four) hours as needed. Indications: Shortness of breath 016 Active atorvastatin 80 MG tabletIndicatio ns:Hyperlipidem ia Take 1 tablet (80 mg total) by mouth nightly at bedtime. Indications: High Amount of Fats in the Blood 017 Active allopurinol 300 MG tabletIndicatio ns:Abnormal Uric Acid Levels Take 1 tablet (300 mg total) by mouth daily. Indications: Abnormal Uric Acid Levels 019 Active sertraline 50 MG tabletIndicatio ns:Mood Disorder Take 1 tablet (50 mg total) by mouth daily. Indications: Mood Disorder 022 Active pantoprazole EC 40 MG tabletIndicatio ns:Gastroesopha geal reflux Take 1 tablet (40 mg total) by mouth daily. Indications: Gastroesophageal reflux Active docusate sodium 100 MG capsuleIndicati ons:Constipatio n Take 1 capsule (100 mg total) by mouth as needed for Constipation. Indications: Constipation Active traZODone (DESYREL) 150 MG tabletIndicatio ns:Sleep Disorder Take 2 tablets (300 mg total) by mouth nightly at bedtime. Indications: Sleep Disorder 022 Active TRELEGY ELLIPTA 100-62.5-25 MCG/ACT AEROSOL POWDER, BREATH ACTIVATEDIndica tions:Preventio n of COPD Exacerbation Inhale 1 puff into the lungs daily. Indications: Prevention of COPD Worsening 023 Active clotrimazole-be tamethasone (LOTRISONE) creamIndication s:Rash and other nonspecific skin eruption 1 Application every 12 (twelve) hours. Indications: Rash and other nonspecific skin eruption 024 Active pregabalin (LYRICA) 200 MG capsuleIndicati ons:Neuropathic Pain Take 1 capsule (200 mg total) by mouth 2 (two) times daily. Indications: Neuropathic Pain Active Semaglutide (OZEMPIC, 1 MG/DOSE, SC)Indications: Diabetes Mellitus Inject into the skin once a week. Indications: Diabetes Weekly on Mondays. Active nystatin (MYCOSTATIN) powderIndicatio ns:Yeast Apply topically 2 (two) times daily. Apply to groin, under abdominal fold 15 g 024 Active insulin glargine (LANTUS) 100 UNIT/ML injection (VIAL)Indicatio ns:Diabetes Mellitus Inject 30 Units into the skin nightly at bedtime. Indications: Diabetes 025 Active insulin lispro (HUMALOG/ADMELO G) 100 UNIT/ML injection (VIAL)Indicatio ns:Diabetes Mellitus Inject 1 Units into the skin 3 (three) times daily before meals. 140-160-1 unit 161-180-2 umits over 181-3 units 025 Active aspirin 81 MG chewable tabletIndicatio ns:Anticoagulan t Therapy Chew 1 tablet (81 mg total) by mouth daily. Indications: Anticoagulant Therapy 025 Active HYDROcodone-fabricio taminophen (NORCO) 7.5-325 MG tabletIndicatio ns:Chronic Pain Take 1 tablet by mouth 2 (two) times daily as needed for Pain. Indications: Chronic Pain Active OXYGENIndicatio ns:Prevention of COPD Exacerbation 2 L/min by Nasal route nightly. Indications: Prevention of COPD Worsening Active senna-docusate (SENOKOT-S) 8.6-50 MG tabletIndicatio ns:Constipation Take 1 tablet by mouth daily as needed for Constipation. 10 tablet 025 Active hyoscyamine (LEVSIN) 0.125 MG TABLET DISPERSIBLEIndi cations:Bladder Spasm Take 1 tablet (0.125 mg total) by mouth every 4 (four) hours as needed. 30 tablet 025 Active apixaban (ELIQUIS) 5 MG tabletIndicatio ns:Atrial Fibrillation Take 1 tablet (5 mg total) by mouth 2 (two) times daily for 30 days. Indications: Atrial Fibrillation 60 tablet 025 2024 Active bumetanide (BUMEX) 1 MG tabletIndicatio ns:Diuresis Take 2 tablets (2 mg total) by mouth 2 (two) times daily for 30 days. Indications: Increase in the Amount of Urine Produced 120 tablet 025 2024 Active metoprolol succinate ER (TOPROL XL) 12.5 mg TABLET SR 24 HR 24 hr tabletIndicatio ns:Hypertension Take 1 split tab (12.5 mg total) by mouth every 12 (twelve) hours. Indications: High Blood Pressure 120 split tab Active solifenacin (VESICARE) 5 MG tabletIndicatio ns:Overactive Bladder Take 1 tablet (5 mg total) by mouth daily for 30 days. Indications: Overactive Bladder 30 tablet 025 2024 Active tamsulosin (FLOMAX) 0.4 MG CapIndications: BPH Take 1 capsule (0.4 mg total) by mouth daily. Indications: BPH 30 capsule 1 Active bacitracin 500 UNIT/GM ointmentIndicat ions:Ulcer Apply topically 3 (three) times daily for 30 days. Indications: Ulcer 14.2 g 025 2024 Active metOLazone (ZAROXOLYN) 5 MG tabletIndicatio ns:Heart Failure Indications: Cardiac Failure Start metolazone 5 mg Wednesday On days taking metolazone take extra 20 mill colons of potassium 30 tablet 11 Active potassium chloride CR (KLOR-CON M) 20 MEQ tabletIndicatio ns:Atrial Fibrillation Indications: Atrial Fibrillation Take Potassium Chloride 40 mEq twice daily (BID) for 4 days.Then reduce to Potassium Chloride 20 mEq three times daily (TID). 90 tablet 6 Active bumetanide (BUMEX) 1 MG tabletIndicatio ns:Diuresis Take 1 tablet (1 mg total) by mouth 2 (two) times daily for 30 days. 60 tablet 025 2024 Discontinued tamsulosin (FLOMAX) 0.4 MG CapIndications: BPH Take 1 capsule (0.4 mg total) by mouth daily for 30 days. 30 capsule 025 2024 Discontinued solifenacin (VESICARE) 5 MG tabletIndicatio ns:Overactive Bladder Take 1 tablet (5 mg total) by mouth daily for 30 days. 30 tablet 025 2024 Discontinued apixaban (ELIQUIS) 5 MG tabletIndicatio ns:Atrial Fibrillation Take 1 tablet (5 mg total) by mouth 2 (two) times daily for 30 days. Indications: Atrial Fibrillation 60 tablet 025 2024 Discontinued metoprolol succinate ER (TOPROL XL) 12.5 mg TABLET SR 24 HR 24 hr tabletIndicatio ns:Hypertension Take 1 split tab (12.5 mg total) by mouth every 12 (twelve) hours for 30 days. 60 split tab 025 2024 Discontinued cephALEXin (KEFLEX) 500 MG capsuleIndicati ons:Urinary Tract Infection Take 1 capsule (500 mg total) by mouth 3 (three) times daily for 4 days. Indications: Urinary Tract Infection 12 capsule 025 2024 potassium chloride CR (KLOR-CON M) 10 MEQ tabletIndicatio ns:Hypokalemia [The details of the medication are not available because there are pending changes by a home health clinician.] 28 tablet 025 2024 Additional Information Patient taking differently:20 mEq Oral Daily,Take 40 mEq on days taking metolazone., Indications: Hypokalemia, Reported on 02/20/2025 Active Problems Problem Noted Date Diagnosed Date Acute kidney failure 02/28/2025 Acute upper GI bleed 02/28/2025 Acute on chronic combined sy stolic and diastolic CHF (congestive heart failure) ([facility]) 02/06/2025 Encounter for rehabilitation 01/10/2025 Candidiasis 12/26/2024 Chronic venous insufficiency 04/17/2024 CHF exacerbation ([facility]) 07/12/2023 Rib fractures 02/06/2023 NSTEMI (non-ST elevated myoc ardial infarction) ([facility]) 02/01/2022 Elevated troponin 02/01/2022 Elevated brain natriuretic peptide (BNP) level 0 02/01/2022 Fall 02/01/2022 Other closed fracture of dis kaity end of right fibula with routine healing, subsequent encounter 01/29/2022 Leg edema 12/09/2021 Mild persistent asthma without complication ([facility]) 04/06/2021 Asymptomatic carotid artery stenosis, bilateral 11/26/2020 Obstructive sleep apnea (adult) (pediatric) 10/21 Pulmonary hypertension ([facility]) 021 TIA (transient ischemic attack) 09/03/2020 Pain in both lower extremities 03/07/2019 Chronic atrial fibrillation ([facility]) Chronic anticoagulation 02/15/2017 Abnormal finding on lung imaging 02/14/2014 Abnormal finding on pulmonary function testing 0 02/14/2014 Overview (05/05/2019): Description: non-specific ventilatotry defect. No clear restriction/obstruction.; ; Reduced diffusion capacity. Shortness of breath 02/14/2014 S/P ablation of atrial fibrillation 08/23/2013 Overview (04/05/2016): 2013 S/P aortic valve replacement with bioprosthetic valve 08/23/2013 Overview (09/24/2018): 1999, 2013 LV dysfunction Essential hypertension Mixed hyperlipidemia Diabetes mellitus, type II ([facility]) Coronary artery disease invo lving [place] coronary artery of [place] heart without angina pectoris COPD (chronic obstructive pu lmonary disease) ([facility]) Carotid disease, bilateral Arthritis Aortic stenosis Varicose veins of bilateral lower extremities with other complications Abnormal ankle brachial index (STELLA) Claudication CHF (congestive heart failure) ([facility]) 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 ([facility]) Non-pressure chronic ulcer o f left calf limited to breakdown of skin ([facility]) Resolved Problems Problem Noted Date Diagnosed Date Resolved Date Encounter for preventive health examination 02/06/2014 05/03/2020 PAD (peripheral artery disease) 04/11/2019 Encounters Date Type Department Care Team Description 03/12/2025 Orders Only [facility] [address] [place] [address] Brennan Hernandez MD 03/11/2025 9:30 AM CDT Home Care Visit [facility] Home Care [facility] [address] [place] [address] Mallika Dean, RN SN OASIS RESUMPTION OF CARE 03/11/2025 Plan of Care Documentation [facility] Home Care [facility] [address] [place] [address] 03/07/2025 Patient Outreach [facility] [address] [place] [phone] Corrie Pickard RN TCM (TCM-initial call) 03/02/2025 1:02 PM CDT Anesthesia Event [facility] [address] [place] [address] Ivanna Iglesias MD Oke, Francis A, CRNA 03/02/2025 11:55 AM CDT - 03/02/2025 12:44 PM CDT Surgery [facility] [address] [place] [address] Marisol Mac MD EGD WITH BIOPSY 03/02/2025 Home Care Visit [facility] Home Care [facility] [address] [place] [address] Danyelle Zayas RN SN OASIS TRANSFER W/OUT DC 03/01/2025 Patient Outreach [facility] [address] [place] [phone] Corrie Pickard RN Hospital Follow Up (PCP ICU Admission Notification) 02/28/2025 4:33 PM CDT - 03/06/2025 2:00 PM CDT Hospital Encounter [facility] 4th Floor Medical [address] [place] [address] Jacinta Conklin MD Hindi, Zakaria, MD Parikh, Ankit R, MD Markapuram, Srikanth, MD Abnormal Lab Results Discharge Disposition: Home with Home Health Care 02/28/2025 Travel 02/28/2025 Patient Outreach [facility] Medical [place] [address] [place] [phone] Corrie Pickard, YUNI TCM (TCM-2week f/u call) 02/28/2025 Orders Only [facility] [address] [place] [address] Brit Gonzáles MD 02/28/2025 MyChart Message Enc [facility] [address] [place] [address] Of[facility] Provider Labs results 02/27/2025 Telephone [facility] [address] [place] [address] Brit Gonzáles MD Lab Results 02/26/2025 2:45 PM CDT Home Care Visit [facility] Home Care [facility] [address] [place] [address] Ana Pedraza, ONLINE EDITOR ONLINE EDITOR HOME VISIT 02/26/2025 12:54 PM CDT - 02/26/2025 11:59 PM CDT Hospital Encounter [facility] [address] [place] [address] Brit Gonzáles MD Discharge Disposition: Home or Self Care (Routine Discharge) 02/26/2025 11:30 AM CDT Home Care Visit [place] [address] [place] [address] Dari Payne LPN SN HOME VISIT 02/26/2025 Telephone [facility] [address] [place] [address] Brit Gonzáles MD Concerns 02/26/2025 Orders Only [place] [address] [place] [address] Brit Gonzáles MD 02/26/2025 Results Follow-Up [facility] [address] [place] [address] Danyelle Lam RN [facility] [address] [facility] 02/21/2025 11:00 AM CDT Home Care Visit [place] [address] [place] [address] Benjamin Hawkins, PT PT INITIAL EVALUATION 02/20/2025 9:30 AM CDT Home Care Visit [place] [address] [place] [address] Mallika Dean, RN SN HOME VISIT 02/20/2025 Patient Outreach [facility] [address] [place] [phone] Corrie Pickard, RN TCM (TCM One week f/u call with Daughter Bonnie) 02/19/2025 2:00 PM CDT Home Care Visit [facility] [address] [place] [address] Alice Sauceda OT OT INITIAL EVALUATION 02/19/2025 11:00 AM CDT Office Visit [facility] [address] [place] [address] rBit Gonzáles MD 02/19/2025 10:45 AM CDT - 02/19/2025 11:59 PM CDT Hospital Encounter [facility] [address] [place] [address] Brit Gonzáles MD Discharge Disposition: Home or Self Care (Routine Discharge) 02/19/2025 Home Care Visit [facility] [address] [place] [address] Eros Tang, PT CASE COMMUNICATION 02/19/2025 Travel 02/19/2025 Orders Only [facility] [address] [place] [address] Brit Gonzáles MD 02/15/2025 Plan of Care Documentation [facility] [address] [place] [address] 02/14/2025 11:00 AM CDT Home Care Visit [facility] [address] [place] [address] Cecile Hills RN SN OASIS RESUMPTION OF CARE 02/13/2025 Telephone [facility] [address] [place] [address] Brit Gonzáles MD Appointment Request (Discharge follow up ) 02/13/2025 Patient Outreach [place] [address] [place] [address] Corrie Pickard RN TCM (TCM_Initial call with pt) 02/13/2025 Hospital Follow-up Call [facility] [address] [place] [address] Cara Potter RN 02/08/2025 Home Care Visit [facility] [address] [place] [address] Danyelle Zayas RN SN OASIS TRANSFER W/OUT DC 02/07/2025 Patient Outreach [facility] [address] [place] [address] Corrie Pickard RN Hospital Follow Up (PCP Admission Notification) 02/06/2025 2:39 PM CDT - 02/12/2025 4:29 PM CDT Hospital Encounter [facility] [address] [place] [address] Shanna Young DO Sonani, Bhavin V., MD Rangu, Venu Mohan, MD Shortness Of Breath Discharge Disposition: Home with Home Health Care 02/06/2025 12:45 PM CDT Office Visit [facility] [address] [place] [address] Brit Gonzáles MD 02/06/2025 8:30 AM CDT Home Care Visit [facility] [address] [place] [address] Swati Cloud LPN SN HOME VISIT 02/06/2025 Orders Only [facility] [address] [place] [address] Brit Gonzáles MD 02/06/2025 Orders Only [facility] [address] [place] [address] Brit Gonzáles MD 02/06/2025 Travel 02/06/2025 Orders Only [facility] [address] [place] [address] Brit Gonzáles MD 02/05/2025 Telephone [facility] [address] [place] [address] Brit Gonzáles MD Lab Results 02/05/2025 Abstract [facility] [address] [place] [address] Abstract, Doc Pccl 02/02/2025 9:30 AM CDT Home Care Visit [facility] [address] [place] [address] Eros Tang, PT PT INITIAL EVALUATION 02/02/2025 8:45 AM CDT Home Care Visit [facility] [address] [place] [address] Mallika Dean, RN SN HOME VISIT 02/01/2025 [facility] [address] [place] [phone] Corrie Pickard RN 01/31/2025 Scan [facility] [address] [place] [address] Scanned, Doc Pccl 01/31/2025 Telephone [facility] [address] [place] [address] Brit Gonzáles MD Appointment Request 01/30/2025 2:56 PM CDT - 01/30/2025 11:59 PM CDT Hospital Encounter [facility] [address] [place] [address] Yael Renteria NP Discharge Disposition: Home or Self Care (Routine Discharge) 01/30/2025 9:18 AM CDT - 01/30/2025 11:59 PM CDT Hospital Encounter [facility] [address] [place] [address] Megan Infante MD Discharge Disposition: Home or Self Care (Routine Discharge) 01/30/2025 8:00 AM CDT Home Care Visit [facility] [address] [place] [address] Dari Payne LPN SN HOME PRN VISIT 01/30/2025 Home Care Visit [facility] [address] [place] [address] Benjamin Hawkins, PT CASE COMMUNICATION 01/30/2025 Orders Only [facility] [address] [place] [address] Megan Infante MD 01/29/2025 8:00 AM CDT Home Care Visit [facility] [address] [place] [address] Rebecca Bello, RN SN OASIS START OF CARE 01/29/2025 Plan of Care Documentation [facility] Home [facility] [address] [place] [address] 01/29/2025 Patient Outreach [facility] [address] [place] [address] Corrie Pickard MANAGER PROGRESSIVE CARE F/U (PCP ED Notificiation) 01/26/2025 11:00 AM CDT Home Care Visit [facility] [address] [place] [address] Rebecca Bello RN CASE COMMUNICATION 01/25/2025 1:45 PM CDT - 01/25/2025 5:19 PM CDT Emergency [facility] [address] [place] [address] Lawrence Kong MD Male Gu Discharge Disposition: Home or Self Care (Routine Discharge) 01/25/2025 11:30 AM CDT Home Care Visit [facility] [address] [place] [address] Cecile Hills RN SN NON ADMIT SOC 01/25/2025 Home Care Visit [facility] [address] [place] [address] Bianka Maldonado RN CASE COMMUNICATION 01/25/2025 Travel 01/25/2025 Patient Outreach [facility] [address] [place] [address] Corrie Pickard MANAGER PROGRESSIVE CARE F/U (PCP Notification of ED visit <1 week after d/c due to Urinary Retention. Sent to ED by Home Health team. ) 01/24/2025 12:40 PM CDT - 01/24/2025 2:46 PM CDT Emergency [facility] Emergency [address] [place] [address] Cirilo Ace DO Urinary Retention; Abdominal Distention Discharge Disposition: Home or Self Care (Routine Discharge) 01/24/2025 8:45 AM CDT Home Care Visit [facility] [address] [place] [address] Mallika Dean, RN SN NON ADMIT SOC 01/24/2025 Travel 01/22/2025 Patient Out[facility] [address] [place] [address] Corrie Pickard RN TCM (TCM-Iniital call to pt daughter Bonnie) 01/10/2025 3:31 PM CDT - 01/18/2025 1:47 PM CDT Hospital Encounter [facility] [address] [place] [address] Kilo Navarro MD Fisher, Amy E, MD Discharge Disposition: Home with Home Health Care 01/10/2025 11:30 AM CDT Telephone [facility] [address] [place] [address] Diamond Can MD Holter Monitor 01/10/2025 Travel 01/08/2025 Telephone [facility] [address] [place] [address] Diamond Can MD Holter Monitor; Appointment Request 01/01/2025 Telephone [facility] [address] [place] [address] Catrachita Perez RN Referral (Swing bed referral [facility]/) 12/28/2024 8:04 PM CDT - 01/10/2025 1:49 PM CDT Hospital Encounter [facility] [address] [place] [address] Juanpablo Herman MD Lin, Kevin A, MD Markapuram, Srikanth, MD Discharge Disposition: Longterm Facility 12/28/2024 Travel 12/26/2024 Patient Outreach [facility] [address] [place] [address] Corrie Pickard RN Hospital Follow Up (Admission notification to PCP Dr[facility] Megan Infante [facility]); TCM (TCM -Initial call to SNF after d/c from Hosp. ) 12/25/2024 2:52 PM CDT - 12/28/2024 6:25 PM CDT Hospital Encounter [facility] [address] [place] [address] Piyush Manzano DO Fisher, Amy E, MD Ishmael, Timothy L, MD Shortness Of Breath Discharge Disposition: Transfer to Acute Care Hospital 12/25/2024 Travel 12/11/2024 Telephone [facility] [address] [place] [address] Brit Gonzáles MD Appointment Request from Last 3 Months Immunizations Immunization Administration Dates Next Due Influenza (Generic) 04/23/2016,05/23/2013 [...] from your doctor or pharmacy? Often 01/10/2025 [facility] Utilities Answer Date Recorded In the past 12 months has th e SU[employer], oil, or water [employer] threatened to shut off services in your [...] often do you attend chur ch or adventism services? Never 01/10/2025 Do you belong to [...] any time in the past 12 m [facility], were you homeless or living in a halfway (including now)? No 02/28/2025 Sex and Gender Information Value Date Recorded Sex Assigned at Male 09/07/2024 10:18 PM SWING [employer]ER Legal Sex Male 10:01 PM CDT Gender Identity Male 09/07/2024 10:18 PM SWING TENDER Sexual Orientation Straight 09/07/2024 10 :18 PM SWING TENDER Occupation Industry Job Start Date Job End Date Not on file Not on file Not on file Not on file Last Filed Vital Signs Vital Sign Reading Time Taken Comments Blood Pressure 110/68 03/11/2025 9:46 AM CDT Pulse 66 03/11/2025 9:46 AM CDT Temperature 36.3 C (97.4 F) 03/11/2025 9:46 AM CDT Respiratory Rate 18 03/11/2025 9:46 AM CDT Oxygen Saturation 90% 03/11/2025 9:46 AM CDT Inhaled Oxygen Concentration - - Weight 99.8 kg (220 lb) 03/11/2025 9:46 AM CDT Height 167.6 cm (5' 6) 02/28/2025 4:02 PM CDT Body Mass Index 35.51 02/28/2025 4:02 PM CDT Plan of Treatment Upcoming Encounters Date Type Department Care Team (Late st Contact Info) Description 03/13/2025 10:00 AM CDT Home Care Visit [place] [address] [place] [address] Dari Payne LPN 03/13/2025 10:00 AM CDT Home Care Visit [place] [address] [place] [address] Spring Gilbert, PT [address] [place], [place] [address] 03/16/2025 9:15 AM CDT Home Care Visit [address] [address] Dari Payne LPN 03/20/2025 9:45 AM CDT Home Care Visit [place] [address] [place] [address] Mallika Dean, RN 03/23/2025 12:45 PM CDT Home Care Visit [place] [address] [place] [address] Dari Payne LPN 03/28/2025 8:00 AM CDT Appointment [place] [address] [place] [address] Cecile Hills, RN [phone] (Work) 04/02/2025 11:15 AM CDT Appointment [facility] [address] [place] [address] Brit Gonzáles MD [address] [place], [place] [address] 04/12/2025 1:00 PM CDT Office Visit [facility] jorge [address] [place] [address] Lobo Allred, UNDERGROUND PRODUCTION FOREPERSON [address] [place] [address] 05/23/2025 11:45 AM CDT Office Visit [facility] [place] [place] [address] Brit Gonzáles MD [address] [place] [address] 08/08/2025 1:45 PM SWING TENDER Office Visit [facility] [place] [address] [place] [address] Brit Gonzáles MD [address] [place] [address] Health Maintenance Due Date Last Done Comments ASCVD Statin 1955 Kidney Health Evaluation 1955 Diabetes: Retinopathy Eye Exam 1972 Zoster Vaccines (1 of 2) 2004 Pneumococcal Vaccine: 50+ Years (2 of 2 - PCV) 08/23/2013 08/23/2012, 04/17/2012 RSV Immunization or 60+ Years (1 - Risk 60-74 years 1-dose series) 2014 Annual Medicare Wellness Visit 2019 ASCVD LDL 02/01/2023 02/01/2022, 08/0 10/2016, 03/24/2016, Additional history exists Lipid Panel 02/01/2023 02/01/2022, 02/15/2013 COVID-19 Vaccine ( season) 2024 07/29/2021, 11/14/2020, 10/16/2020 PHQ-2 (Physician [place]) 08/23/2024 Hemoglobin A1C 09/01/2025 03/01/2025, 01/21, 12/29/2024, Additional history exists Colorectal Cancer Screening Colonoscopy (10 Years) 01/28/2032 01/27/2022, 01/27/2022, 03/18/2021, Additional history exists DTaP, Tdap and Td Vaccines (2 - Td or Tdap) 02/06/2033 02/06/2023 Hepatitis C Completed 12/24/2022 AAA SCREENING Completed 02/28/2025, 12/2024, 12/26/2024, Additional history exists Meningococcal B Vaccine Aged [...] discharge planning Lifestyle No Karen Quezada, RN Interventions Community Resource Recommendations Community Resource Services Recommended Domains Addressed Status Status Reason/Outcome Date/Time [facility] Crisis Services, Mental Health Education, Mental Health Evaluation, Mental Health Services Stress, Health Literacy Recommended 03/06/2025 3:51 PM CDT from Last 12 Months Procedures Procedure Name Priority Date/Time Associated Diagnosis Comments POCT GLUCOSE - DOCKED DEVICE Routine 03/06/2025 11:44 AM CDT POCT GLUCOSE - DOCKED DEVICE Routine 03/06/2025 7:03 AM CDT CBC W/DIFF AUTOMATED Routine 03/06/2025 6:10 AM CDT COMPREHENSIVE METABOLIC PANEL Routine 03/06/2025 6:10 AM CDT POCT GLUCOSE - DOCKED DEVICE Routine 03/05/2025 9:00 PM CDT POCT GLUCOSE - DOCKED DEVICE Routine 03/05/2025 4:56 PM CDT US GD PARACENT W IMAGING Routine 03/05/2025 1:03 PM CDT POCT GLUCOSE - DOCKED DEVICE Routine 03/05/2025 11:57 AM CDT POCT GLUCOSE - DOCKED DEVICE Routine 03/05/2025 5:04 AM CDT PROTHROMBIN TIME, VENOUS Routine 03/05/2025 4:19 AM CDT CBC W/DIFF AUTOMATED Routine 03/05/2025 4:19 AM CDT COMPREHENSIVE METABOLIC PANEL Routine 03/05/2025 4:19 AM CDT POCT GLUCOSE - DOCKED DEVICE Routine 03/04/2025 8:59 PM CDT POCT GLUCOSE - DOCKED DEVICE Routine 03/04/2025 5:16 PM CDT POCT GLUCOSE - DOCKED DEVICE Routine 03/04/2025 12:24 PM CDT POCT GLUCOSE - DOCKED DEVICE Routine 03/04/2025 5:44 AM CDT CBC W/DIFF AUTOMATED Routine 03/04/2025 4:53 AM CDT COMPREHENSIVE METABOLIC PANEL Routine 03/04/2025 4:53 AM CDT POCT GLUCOSE - DOCKED DEVICE Routine 03/03/2025 9:10 PM CDT POCT GLUCOSE - DOCKED DEVICE Routine 03/03/2025 4:47 PM CDT POCT GLUCOSE - DOCKED DEVICE Routine 03/03/2025 11:13 AM CDT POCT GLUCOSE - DOCKED DEVICE Routine 03/03/2025 6:48 AM CDT CBC W/DIFF AUTOMATED Routine 03/03/2025 3:48 AM CDT COMPREHENSIVE METABOLIC PANEL Routine 03/03/2025 3:48 AM CDT PHOSPHORUS, INORGANIC PHOSPHATE Routine 03/03/2025 3:48 AM CDT MAGNESIUM Routine 03/03/2025 3:48 AM CDT POCT GLUCOSE - DOCKED DEVICE Routine 03/02/2025 10:28 PM CDT POCT GLUCOSE - DOCKED DEVICE Routine 03/02/2025 3:40 PM CDT UPPER GI ENDOSCOPY,BIOPSY 03/02/2025 12:48 PM CDT Acute upper GI bleed ENDOSCOPY (SCAN ORDER) 11:27 AM CDT CBC, AUTO, NO DIFF STAT 03/02/2025 11:26 AM CDT BMP WITHOUT GLUCOSE STAT 03/02/2025 11:26 AM CDT POCT GLUCOSE - DOCKED DEVICE Routine 03/02/2025 6:55 AM CDT CBC W/DIFF AUTOMATED Routine 03/02/2025 3:46 AM CDT PHOSPHORUS, INORGANIC PHOSPHATE Routine 03/02/2025 3:46 AM CDT MAGNESIUM Routine 03/02/2025 3:46 AM CDT COMPREHENSIVE METABOLIC PANEL Routine 03/02/2025 3:46 AM CDT PATHOLOGY Routine 03/02/2025 12:00 AM CDT POCT GLUCOSE - DOCKED DEVICE Routine 03/01/2025 9:57 PM CDT POCT GLUCOSE - DOCKED DEVICE Routine 03/01/2025 5:10 PM CDT HEMOGLOBIN AND HEMATOCRIT TIMED 03/01/2025 4:18 PM CDT HEMOGLOBIN AND HEMATOCRIT TIMED 03/01/2025 12:10 PM CDT POCT GLUCOSE - DOCKED DEVICE Routine 03/01/2025 11:15 AM CDT HEMOGLOBIN AND HEMATOCRIT TIMED 03/01/2025 8:45 AM CDT POCT GLUCOSE - DOCKED DEVICE Routine 03/01/2025 6:51 AM CDT HEMOGLOBIN, GLYCOSYLATED Routine 03/01/2025 4:21 AM CDT CBC W/DIFF AUTOMATED Routine 03/01/2025 4:21 AM CDT PHOSPHORUS, INORGANIC PHOSPHATE Routine 03/01/2025 4:21 AM CDT MAGNESIUM Routine 03/01/2025 4:21 AM CDT COMPREHENSIVE METABOLIC PANEL Routine 03/01/2025 4:21 AM CDT POCT GLUCOSE - DOCKED DEVICE Routine 03/01/2025 2:06 AM CDT TRANSFUSE RED BLOOD CELLS STAT 03/01/2025 12:45 AM CDT TRANSFUSE RED BLOOD CELLS STAT 02/28/2025 11:05 PM CDT HEMOGLOBIN AND HEMATOCRIT TIMED 02/28/2025 10:00 PM CDT URINE BACTERIA CULTURE Nurse Collected Priority 02/28/2025 9:41 PM CDT HC URINALYSIS AUTO W/MICRO Nurse Collected Priority 02/28/2025 9:39 PM CDT POCT GLUCOSE - DOCKED DEVICE Routine 02/28/2025 8:02 PM CDT POCT ACUTE VENOUS PANEL Routine 02/29/20 8:02 PM CDT HC MRSA AMP Nurse Collected Priority 02/28/2025 8:00 PM CDT COMPREHENSIVE METABOLIC PANEL Routine 02/28/2025 8:00 PM CDT LACTIC ACID STAT 02/28/2025 8:00 PM CDT TRANSFUSE RED BLOOD CELLS STAT 02/28/2025 7:05 PM CDT CBC W/DIFF AUTOMATED STAT 02/28/2025 7:04 PM CDT THYROID STIM HORMONE TSH STAT 02/28/2025 7:04 PM CDT PHOSPHORUS, INORGANIC PHOSPHATE STAT 02/28/2025 7:04 PM CDT MAGNESIUM STAT 02/28/2025 7:04 PM CDT TROPONIN, QUANT STAT 02/28/2025 7:04 PM CDT PARTIAL THROMBOPLASTIN TIME,PTT STAT 02/28/2025 7:04 PM CDT PROTHROMBIN TIME, VENOUS STAT 02/28/2025 7:[address] CHEST+ABD+PEL WO CON STAT 02/29/20 6:43 PM CDT ELECTROCARDIOGRAM REPORT Routine 02/28/2025 5:23 PM CDT CRITICAL CARE Routine 02/28/2025 5:20 PM CDT ECG 12-LEAD STAT 02/28/2025 4:53 PM CDT TYPE & SCREEN STAT 02/28/2025 4:49 PM CDT PRO-BRAIN NATRIURETIC PEPTIDE STAT 02/28/2025 4:49 PM CDT MAGNESIUM STAT 02/28/2025 4:49 PM CDT LACTIC ACID W REFLEX (SEPSIS) STAT 02/28/2025 4:49 PM CDT TROPONIN, QUANT STAT 02/28/2025 4:49 PM CDT COMPREHENSIVE METABOLIC PANEL STAT 02/28/2025 4:49 PM CDT CBC W/DIFF AUTOMATED STAT 02/28/2025 4:49 PM CDT XR CHEST PA+LAT STAT 02/28/2025 3:58 PM CDT BASIC METABOLIC PANEL Routine 02/26/2025 12:10 PM CDT A-fib (CMS/HCC HHS/HCC) CAD (coronary artery disease) Dyspnea PRO-BRAIN NATRIURETIC PEPTIDE Routine 02/26/2025 12:10 PM CDT A-fib (CMS/HCC HHS/HCC) CAD (coronary artery disease) Dyspnea ECG 12-LEAD Routine 02/19/2025 11:11 AM CDT Persistent atrial fibrillation (CMS/HCC HHS/HCC) PAD (peripheral artery disease) Essential (primary) hypertension POCT GLUCOSE - DOCKED DEVICE Routine 02/12/2025 10:59 AM CDT MAGNESIUM Routine 02/12/2025 7:34 AM CDT BASIC METABOLIC PANEL Routine 02/12/2025 7:34 AM CDT CBC W/DIFF AUTOMATED Routine 02/12/2025 7:34 AM CDT POCT GLUCOSE - DOCKED DEVICE Routine 02/12/2025 5:57 AM CDT POCT GLUCOSE - DOCKED DEVICE Routine 02/11/2025 8:41 PM CDT POCT GLUCOSE - DOCKED DEVICE Routine 02/11/2025 4:09 PM CDT CALCIUM, IONIZED Routine 02/11/2025 11:56 AM CDT MAGNESIUM Routine 02/11/2025 11:56 AM CDT CBC W/DIFF AUTOMATED Routine 02/11/2025 11:56 AM CDT BASIC METABOLIC PANEL Routine 02/11/2025 11:56 AM CDT POCT GLUCOSE - DOCKED DEVICE Routine 02/11/2025 11:27 AM CDT POCT GLUCOSE - DOCKED DEVICE Routine 02/11/2025 6:01 AM CDT ECG 12-LEAD STAT 02/10/2025 11:39 PM CDT POCT GLUCOSE - DOCKED DEVICE Routine 02/10/2025 9:08 PM CDT POCT GLUCOSE - DOCKED DEVICE Routine 02/10/2025 5:04 PM CDT POCT GLUCOSE - DOCKED DEVICE Routine 02/10/2025 11:27 AM CDT MAGNESIUM Routine 02/10/2025 7:35 AM CDT CBC W/DIFF AUTOMATED Routine 02/10/2025 7:35 AM CDT BASIC METABOLIC PANEL Routine 02/10/2025 7:35 AM CDT POCT GLUCOSE - DOCKED DEVICE Routine 02/10/2025 5:55 AM CDT POCT GLUCOSE - DOCKED DEVICE Routine 02/09/2025 9:14 PM CDT POCT GLUCOSE - DOCKED DEVICE Routine 02/09/2025 4:43 PM CDT POCT GLUCOSE - DOCKED DEVICE Routine 02/09/2025 11:48 AM CDT MAGNESIUM Routine 02/09/2025 6:05 AM CDT CBC W/DIFF AUTOMATED Routine 02/09/2025 6:05 AM CDT BASIC METABOLIC PANEL Routine 02/09/2025 6:05 AM CDT POCT GLUCOSE - DOCKED DEVICE Routine 02/08/2025 8:48 PM CDT POCT GLUCOSE - DOCKED DEVICE Routine 02/08/2025 4:57 PM CDT HC GLUCOSE BODY FLUID Nurse Collected Priority 02/08/2025 4:09 PM CDT LDH BODY FLUID Nurse Collected Priority 02/08/2025 4:09 PM CDT PROTEIN TOTAL FLUID Nurse Collected Priority 02/08/2025 4:09 PM CDT CELL COUNT W/ DIFF BODY FLUID Nurse Collected Priority 02/08/2025 4:09 PM CDT AMYLASE FLUID Nurse Collected Priority 02/08/2025 4:09 PM CDT ALBUMIN BODY FLUID Nurse Collected Priority 02/08/2025 4:09 PM CDT US GD PARACENT W IMAGING Routine 02/08/2025 4:04 PM CDT PARTIAL THROMBOPLASTIN TIME,PTT Routine 02/08/2025 12:31 PM CDT PROTHROMBIN TIME, VENOUS Routine 02/08/2025 12:31 PM CDT POCT GLUCOSE - DOCKED DEVICE Routine 02/08/2025 11:38 AM CDT POCT GLUCOSE - DOCKED DEVICE Routine 02/08/2025 6:45 AM CDT PHOSPHORUS, INORGANIC PHOSPHATE Routine 02/08/2025 5:47 AM CDT CBC W/DIFF AUTOMATED Routine 02/08/2025 5:47 AM CDT COMPREHENSIVE METABOLIC PANEL Routine 02/08/2025 5:47 AM CDT MAGNESIUM Routine 02/08/2025 5:47 AM CDT CYTOLOGY GENERIC Routine 02/08/2025 12:00 AM CDT POCT GLUCOSE - DOCKED DEVICE Routine 02/07/2025 9:35 PM CDT BASIC METABOLIC PANEL TIMED 02/07/2025 7:41 PM CDT POCT GLUCOSE - DOCKED DEVICE Routine 02/07/2025 4:17 PM CDT ECG 12-LEAD Routine 02/07/2025 1:00 PM CDT URINE BACTERIA CULTURE Nurse Collected Priority 02/07/2025 11:52 AM CDT HC URINALYSIS AUTO W/MICRO Nurse Collected Priority 02/07/2025 11:52 AM CDT POCT GLUCOSE - DOCKED DEVICE Routine 02/07/2025 11:18 AM CDT BASIC METABOLIC PANEL TIMED 02/07/2025 8:02 AM CDT POCT GLUCOSE - DOCKED DEVICE Routine 02/07/2025 6:40 AM CDT MAGNESIUM Routine 02/07/2025 5:38 AM CDT CBC W/DIFF AUTOMATED Routine 02/07/2025 5:38 AM CDT BASIC METABOLIC PANEL Routine 02/07/2025 5:38 AM CDT POCT GLUCOSE - DOCKED DEVICE Routine 02/06/2025 8:42 PM CDT XR CHEST PA+LAT STAT 02/06/2025 3:38 PM CDT MOBILE CONTINUOUS TELEMETRY Routine 02/06/2025 3:14 PM CDT Persistent atrial fibrillation (CMS/HCC HHS/HCC) ECG 12-LEAD STAT 02/06/2025 3:10 PM CDT HEMOGLOBIN, GLYCOSYLATED STAT 02/06/2025 3:03 PM CDT PRO-BRAIN NATRIURETIC PEPTIDE STAT 02/06/2025 3:03 PM CDT MAGNESIUM STAT 02/06/2025 3:03 PM CDT LACTIC ACID W REFLEX (SEPSIS) STAT 02/06/2025 3:03 PM CDT TROPONIN, QUANT STAT 02/06/2025 3:03 PM CDT COMPREHENSIVE METABOLIC PANEL STAT 02/06/2025 3:03 PM CDT D-DIMER, QUANTITATIVE STAT 02/06/2025 3:03 PM CDT PARTIAL THROMBOPLASTIN TIME,PTT STAT 02/06/2025 3:03 PM CDT PROTHROMBIN TIME, VENOUS STAT 02/06/2025 3:03 PM CDT CBC W/DIFF AUTOMATED STAT 02/06/2025 3:03 PM CDT COMPREHENSIVE METABOLIC PANEL Routine 02/02/2025 PRO-BRAIN NATRIURETIC PEPTIDE Routine 02/02/2025 URINE BACTERIA CULTURE Routine 2:58 PM CDT HC URINALYSIS AUTO W/MICRO Routine 01/30/2025 12:00 PM CDT COMPREHENSIVE METABOLIC PANEL Routine 01/30/2025 8:30 AM CDT Abnormal levels of other serum enzymes URINE BACTERIA CULTURE STAT 3:29 PM CDT HC URINALYSIS AUTO W/MICRO STAT 01/25/2025 3:29 PM CDT XR CHEST PORTABLE STAT 01/25/2025 3:[address] ABD+PEL WO CON STAT 01/25/2025 2:5 7 PM CDT CULTURE, BACTERIA, BLOOD STAT 01/25/2025 2:41 PM CDT ECG 12-LEAD Routine 01/25/2025 2:37 PM CDT PRO-BRAIN NATRIURETIC PEPTIDE STAT 01/25/2025 2:34 PM CDT LACTIC ACID W REFLEX (SEPSIS) STAT 01/25/2025 2:34 PM CDT TROPONIN, QUANT STAT 01/25/2025 2:34 PM CDT COMPREHENSIVE METABOLIC PANEL STAT 01/25/2025 2:34 PM CDT CBC W/DIFF AUTOMATED STAT 01/25/2025 2:34 PM CDT CULTURE, BACTERIA, BLOOD STAT 01/25/2025 2:33 PM CDT BASIC METABOLIC PANEL STAT 01/24/2025 1:00 PM CDT CBC W/DIFF AUTOMATED STAT 01/24/2025 1:00 PM CDT POCT GLUCOSE - DOCKED DEVICE Routine 01/18/2025 11:45 AM CDT POCT GLUCOSE - DOCKED DEVICE Routine 01/18/2025 6:18 AM CDT POCT GLUCOSE - DOCKED DEVICE Routine 01/17/2025 7:24 PM CDT POCT GLUCOSE - DOCKED DEVICE Routine 01/17/2025 4:22 PM CDT POCT GLUCOSE - DOCKED DEVICE Routine 01/17/2025 11:12 AM CDT POCT GLUCOSE - DOCKED DEVICE Routine 01/17/2025 6:09 AM CDT POCT GLUCOSE - DOCKED DEVICE Routine 01/16/2025 8:21 PM CDT POCT GLUCOSE - DOCKED DEVICE Routine 01/16/2025 4:22 PM CDT POCT GLUCOSE - DOCKED DEVICE Routine 01/16/2025 11:03 AM CDT POCT GLUCOSE - DOCKED DEVICE Routine 01/16/2025 6:16 AM CDT POCT GLUCOSE - DOCKED DEVICE Routine 01/15/2025 7:52 PM CDT POCT GLUCOSE - DOCKED DEVICE Routine 01/15/2025 4:36 PM CDT POCT GLUCOSE - DOCKED DEVICE Routine 01/15/2025 11:16 AM CDT POCT GLUCOSE - DOCKED DEVICE Routine 01/15/2025 6:16 AM CDT COMPREHENSIVE METABOLIC PANEL Routine 01/15/2025 5:05 AM CDT CBC W/DIFF AUTOMATED Routine 01/15/2025 5:05 AM CDT POCT GLUCOSE - DOCKED DEVICE Routine 01/14/2025 9:06 PM CDT POCT GLUCOSE - DOCKED DEVICE Routine 01/14/2025 4:54 PM CDT POCT GLUCOSE - DOCKED DEVICE Routine 01/14/2025 11:01 AM CDT POCT GLUCOSE - DOCKED DEVICE Routine 01/14/2025 5:48 AM CDT POCT GLUCOSE - DOCKED DEVICE Routine 01/13/2025 8:23 PM CDT POCT GLUCOSE - DOCKED DEVICE Routine 01/13/2025 3:28 PM CDT POCT GLUCOSE - DOCKED DEVICE Routine 01/13/2025 11:21 AM CDT POCT GLUCOSE - DOCKED DEVICE Routine 01/13/2025 6:22 AM CDT POCT GLUCOSE - DOCKED DEVICE Routine 01/12/2025 8:11 PM CDT POCT GLUCOSE - DOCKED DEVICE Routine 01/12/2025 4:09 PM CDT POCT GLUCOSE - DOCKED DEVICE Routine 01/12/2025 11:31 AM CDT POCT GLUCOSE - DOCKED DEVICE Routine 01/12/2025 6:12 AM CDT POCT GLUCOSE - DOCKED DEVICE Routine 01/11/2025 8:18 PM CDT POCT GLUCOSE - DOCKED DEVICE Routine 01/11/2025 4:57 PM CDT POCT GLUCOSE - DOCKED DEVICE Routine 01/11/2025 11:09 AM CDT COMPREHENSIVE METABOLIC PANEL Routine 01/11/2025 8:51 AM CDT CBC W/DIFF AUTOMATED Routine 01/11/2025 8:51 AM CDT POCT GLUCOSE - DOCKED DEVICE Routine 01/11/2025 6:10 AM CDT POCT GLUCOSE - DOCKED DEVICE Routine 01/10/2025 8:17 PM CDT POCT GLUCOSE - DOCKED DEVICE Routine 01/10/2025 4:59 PM CDT POCT GLUCOSE - DOCKED DEVICE Routine 01/10/2025 10:38 AM CDT PROTHROMBIN TIME, VENOUS STAT 01/10/2025 9:12 AM CDT CBC W/DIFF AUTOMATED Routine 01/10/2025 6:13 AM CDT BASIC METABOLIC PANEL Routine 01/10/2025 6:13 AM CDT POCT GLUCOSE - DOCKED DEVICE Routine 01/10/2025 6:12 AM CDT POCT GLUCOSE - DOCKED DEVICE Routine 01/09/2025 9:27 PM CDT POCT GLUCOSE - DOCKED DEVICE Routine 01/09/2025 4:47 PM CDT POCT GLUCOSE - DOCKED DEVICE Routine 01/09/2025 11:31 AM CDT POCT GLUCOSE - DOCKED DEVICE Routine 01/09/2025 7:38 AM CDT CBC W/DIFF AUTOMATED Routine 01/09/2025 6:14 AM CDT BASIC METABOLIC PANEL Routine 01/09/2025 6:14 AM CDT PROTHROMBIN TIME, VENOUS Routine 01/09/2025 6:14 AM CDT POCT GLUCOSE - DOCKED DEVICE Routine 01/08/2025 9:34 PM CDT POCT GLUCOSE - DOCKED DEVICE Routine 01/08/2025 3:56 PM CDT CBC W/DIFF AUTOMATED STAT 01/08/2025 12:49 PM CDT BASIC METABOLIC PANEL STAT 01/08/2025 12:49 PM CDT PROTHROMBIN TIME, VENOUS Routine 01/08/2025 12:49 PM CDT POCT GLUCOSE - DOCKED DEVICE Routine 01/08/2025 10:38 AM CDT USE TRANSESOPHAGEAL ECHO Routine 01/08/2025 9:51 AM CDT A-fib ([facility]) ECG 12-LEAD Routine 01/08/2025 8:40 AM CDT NEMO CARDIAC Routine 01/08/2025 7:55 AM CDT POCT GLUCOSE - DOCKED DEVICE Routine 01/08/2025 5:32 AM CDT CARDIOVERSION EXTERNAL Routine 12:30 AM CDT A-fib ([facility]) POCT GLUCOSE - DOCKED DEVICE Routine 01/07/2025 8:28 PM CDT POCT GLUCOSE - DOCKED DEVICE Routine 01/07/2025 4:28 PM CDT POCT GLUCOSE - DOCKED DEVICE Routine 01/07/2025 10:42 AM CDT CBC W/DIFF AUTOMATED Routine 01/07/2025 8:11 AM CDT BASIC METABOLIC PANEL Routine 01/07/2025 8:11 AM CDT PROTHROMBIN TIME, VENOUS Routine 01/07/2025 8:11 AM CDT POCT GLUCOSE - DOCKED DEVICE Routine 01/07/2025 5:38 AM CDT POCT GLUCOSE - DOCKED DEVICE Routine 01/06/2025 9:21 PM CDT POCT GLUCOSE - DOCKED DEVICE Routine 01/06/2025 4:24 PM CDT RENAL FUNCTION PANEL Routine 01/06/2025 1:01 PM CDT CBC W/DIFF AUTOMATED Routine 01/06/2025 1:01 PM CDT PROTHROMBIN TIME, VENOUS Routine 01/06/2025 1:01 PM CDT POCT GLUCOSE - DOCKED DEVICE Routine 01/06/2025 11:13 AM CDT POCT GLUCOSE - DOCKED DEVICE Routine 01/06/2025 5:42 AM CDT POCT GLUCOSE - DOCKED DEVICE Routine 01/05/2025 9:11 PM CDT US [employer] L[employer] Today 7:33 PM CDT POCT GLUCOSE - DOCKED DEVICE Routine 01/05/2025 5:34 PM CDT POCT GLUCOSE - DOCKED DEVICE Routine 01/05/2025 4:37 PM CDT POCT GLUCOSE - DOCKED DEVICE Routine 01/05/2025 11:12 AM CDT ECG 12-LEAD STAT 01/05/2025 8:55 AM CDT CBC W/DIFF AUTOMATED Routine 01/05/2025 6:19 AM CDT BASIC METABOLIC PANEL Routine 01/05/2025 6:19 AM CDT PROTHROMBIN TIME, VENOUS Routine 01/05/2025 6:19 AM CDT POCT GLUCOSE - DOCKED DEVICE Routine 01/05/2025 6:06 AM CDT POCT GLUCOSE - DOCKED DEVICE Routine 01/04/2025 9:48 PM CDT POCT GLUCOSE - DOCKED DEVICE Routine 01/04/2025 5:25 PM CDT POCT GLUCOSE - DOCKED DEVICE Routine 01/04/2025 1:11 PM CDT NM PHARM NUC STRESS TEST 1DAY W TRACING Routine 01/04/2025 11:26 AM CDT CARDIOLOGY STRESS TEST ONLY, EXERCISE Routine 01/04/2025 10:49 AM CDT CBC W/DIFF AUTOMATED Routine 01/04/2025 8:39 AM CDT BASIC METABOLIC PANEL Routine 01/04/2025 8:39 AM CDT PROTHROMBIN TIME, VENOUS Routine 01/04/2025 8:39 AM CDT POCT GLUCOSE - DOCKED DEVICE Routine 01/04/2025 6:02 AM CDT POCT GLUCOSE - DOCKED DEVICE Routine 01/03/2025 9:27 PM CDT POCT GLUCOSE - DOCKED DEVICE Routine 01/03/2025 4:34 PM CDT POCT GLUCOSE - DOCKED DEVICE Routine 01/03/2025 11:19 AM CDT CARDIOLOGY STRESS TEST ONLY, EXERCISE Routine 01/03/2025 8:56 AM CDT CBC W/DIFF AUTOMATED Routine 01/03/2025 7:16 AM CDT BASIC METABOLIC PANEL Routine 01/03/2025 7:16 AM CDT PROTHROMBIN TIME, VENOUS Routine 01/03/2025 7:16 AM CDT POCT GLUCOSE - DOCKED DEVICE Routine 01/03/2025 5:33 AM CDT POCT GLUCOSE - DOCKED DEVICE Routine 01/02/2025 7:31 PM CDT POCT GLUCOSE - DOCKED DEVICE Routine 01/02/2025 3:24 PM CDT US TESTICULAR STAT 01/02/2025 12:40 PM CDT POCT GLUCOSE - DOCKED DEVICE Routine 01/02/2025 11:17 AM CDT MAGNESIUM Routine 01/02/2025 8:05 AM CDT CBC W/DIFF AUTOMATED Routine 01/02/2025 8:05 AM CDT BASIC METABOLIC PANEL Routine 01/02/2025 8:05 AM CDT PROTHROMBIN TIME, VENOUS Routine 01/02/2025 8:05 AM CDT POCT GLUCOSE - DOCKED DEVICE Routine 01/02/2025 5:49 AM CDT POCT GLUCOSE - DOCKED DEVICE Routine 01/01/2025 8:34 PM CDT POCT GLUCOSE - DOCKED DEVICE Routine 01/01/2025 4:20 PM CDT CBC W/DIFF AUTOMATED Routine 01/01/2025 11:24 AM CDT BASIC METABOLIC PANEL Routine 01/01/2025 11:24 AM CDT PROTHROMBIN TIME, VENOUS Routine 01/01/2025 11:24 AM CDT POCT GLUCOSE - DOCKED DEVICE Routine 01/01/2025 10:51 AM CDT POCT GLUCOSE - DOCKED DEVICE Routine 01/01/2025 9:00 AM CDT POCT GLUCOSE - DOCKED DEVICE Routine 12/31/2024 8:54 PM CDT POCT GLUCOSE - DOCKED DEVICE Routine 12/31/2024 3:29 PM CDT POCT GLUCOSE - DOCKED DEVICE Routine 12/31/2024 11:26 AM CDT POCT GLUCOSE - DOCKED DEVICE Routine 12/31/2024 6:18 AM CDT CBC W/DIFF AUTOMATED Routine 12/31/2024 5:58 AM CDT BASIC METABOLIC PANEL Routine 12/31/2024 5:58 AM CDT PROTHROMBIN TIME, VENOUS Routine 12/31/2024 5:58 AM CDT POCT GLUCOSE - DOCKED DEVICE Routine 12/30/2024 9:04 PM CDT POCT GLUCOSE - DOCKED DEVICE Routine 12/30/2024 4:24 PM CDT POCT GLUCOSE - DOCKED DEVICE Routine 12/30/2024 11:45 AM CDT POCT GLUCOSE - DOCKED DEVICE Routine 12/30/2024 6:25 AM CDT MAGNESIUM Routine 12/30/2024 3:48 AM CDT BASIC METABOLIC PANEL Routine 12/30/2024 3:48 AM CDT CBC W/DIFF AUTOMATED Routine 12/30/2024 3:48 AM CDT PROTHROMBIN TIME, VENOUS Routine 12/30/2024 3:48 AM CDT POCT GLUCOSE - DOCKED DEVICE Routine 12/29/2024 9:18 PM CDT POCT GLUCOSE - DOCKED DEVICE Routine 12/29/2024 4:15 PM CDT XR CHEST PORTABLE Today 12/29/2024 3:5 4 PM CDT HEMOGLOBIN, GLYCOSYLATED Routine 12/29/2024 2:21 PM CDT POCT GLUCOSE - DOCKED DEVICE Routine 12/29/2024 11:30 AM CDT USE ECHOCARDIOGRAM W CON Today 12/29/2024 11:01 AM CDT POCT GLUCOSE - DOCKED DEVICE Routine 12/29/2024 6:50 AM CDT PROTHROMBIN TIME, VENOUS Routine 12/29/2024 6:20 AM CDT PRO-BRAIN NATRIURETIC PEPTIDE Routine 12/29/2024 5:32 AM CDT BASIC METABOLIC PANEL Routine 12/29/2024 5:32 AM CDT CBC W/DIFF AUTOMATED Routine 12/29/2024 5:32 AM CDT HC URINALYSIS AUTO W/MICRO Nurse Collected Priority 12/28/2024 9:51 PM CDT POCT GLUCOSE - DOCKED DEVICE Routine 12/28/2024 9:29 PM CDT POCT GLUCOSE - DOCKED DEVICE Routine 12/28/2024 3:56 PM CDT URINE BACTERIA CULTURE Routine 12:20 PM CDT POCT GLUCOSE - DOCKED DEVICE Routine 12/28/2024 11:07 AM CDT COMPREHENSIVE METABOLIC PANEL Routine 12/28/2024 4:48 AM CDT CBC W/DIFF AUTOMATED Routine 12/28/2024 4:48 AM CDT PROTHROMBIN TIME, VENOUS Routine 12/28/2024 4:48 AM CDT POCT GLUCOSE - DOCKED DEVICE Routine 12/27/2024 7:36 PM CDT POCT GLUCOSE - DOCKED DEVICE Routine 12/27/2024 4:49 PM CDT HC URINALYSIS AUTO W/MICRO Routine 12/27/2024 3:38 PM CDT POCT GLUCOSE - DOCKED DEVICE Routine 12/27/2024 11:46 AM CDT POCT GLUCOSE - DOCKED DEVICE Routine 12/27/2024 5:08 AM CDT PROTHROMBIN TIME, VENOUS Routine 12/27/2024 4:58 AM CDT COMPREHENSIVE METABOLIC PANEL Routine 12/27/2024 4:58 AM CDT CBC W/DIFF AUTOMATED Routine 12/27/2024 4:58 AM CDT POCT GLUCOSE - DOCKED DEVICE Routine 12/26/2024 8:[address] CHEST+ABD+PEL WO CON Today 12/27/19 5:53 PM CDT POCT GLUCOSE - DOCKED DEVICE Routine 12/26/2024 4:09 PM CDT POCT GLUCOSE - DOCKED DEVICE Routine 12/26/2024 11:00 AM CDT POCT GLUCOSE - DOCKED DEVICE Routine 12/26/2024 8:26 AM CDT PROTHROMBIN TIME, VENOUS Routine 12/26/2024 5:04 AM CDT COMPREHENSIVE METABOLIC PANEL Routine 12/26/2024 5:04 AM CDT CBC W/DIFF AUTOMATED Routine 12/26/2024 5:04 AM CDT POCT GLUCOSE - DOCKED DEVICE Routine 12/25/2024 8:57 PM CDT HC URINALYSIS AUTO W/MICRO STAT 12/25/2024 5:00 PM CDT PROTHROMBIN TIME, VENOUS STAT 12/25/2024 3:27 PM CDT PRO-BRAIN NATRIURETIC PEPTIDE STAT 12/25/2024 3:27 PM CDT TROPONIN, QUANT STAT 12/25/2024 3:27 PM CDT COMPREHENSIVE METABOLIC PANEL STAT 12/25/2024 3:27 PM CDT CBC W/DIFF AUTOMATED STAT 12/25/2024 3:27 PM CDT XR CHEST PORTABLE STAT 12/25/2024 3:1 8 PM CDT ECG 12-LEAD Routine 12/25/2024 2:56 PM CDT HEPATITIS C ANTIBODY Routine 12/24/2022 3:05 PM CDT Decreased GFR LIPID PANEL Routine 02/01/2022 11:27 AM CDT COLONOSCOPY 01/27/2022 6:48 AM CDT from Last 3 Months or Most Recently Relevant to Health Maintenance Results * (ABNORMAL) POCT glucose (03/06/2025 11:44 AM CDT) Only the most recent of140 resultswithin the time period is included. GLUCOSE POC 276(H) 70 - 109 03/06/2025 11:46 AM CDT [facility] 03/06/2025 11:4 4 AM CDT Danika Salcedo MD POCT ORDERABLES - DEVICE Final Result [facility] [address] [place] [address], [place] [phone] [id number] * (ABNORMAL) COMPREHENSIVE METABOLIC PANEL (03/06/2025 6:10 AM CDT) Only the most recent of19 resultswithin the time period is included. SODIUM S/P/B 131(L) 136 - 145 MMOL/L 03/06/2025 7:01 AM CDT [facility] POTASSIUM S/P/B 4.1 3.5 - 5.1 MMOL/L 03/06/2025 7:01 AM CDT [facility] CHLORIDE S/P/B 97 97 - 115 MMOL/L 03/06/2025 7:01 AM CDT [facility] CO2 29.1 21.0 - 32.0 MMOL/L 03/06/2025 7:01 AM CDT [facility] GLUCOSE 160(H) 74 - 106 MG/DL 03/06/2025 7:01 AM CDT [facility] BUN 81(H) 7 - 18 MG/DL 03/06/2025 7:01 AM CDT [facility] CREATININE S/P/B 1.96(H) 0.70 - 1.30 MG/DL 03/06/2025 7:01 AM CDT [facility] CALCIUM S/P/B 8.3(L) 8.5 - 10.1 MG/DL 03/06/2025 7:01 AM CDT [facility] BILIRUBIN TOTAL S/P/B 1.3(H) 0.2 - 1.0 MG/DL 03/06/2025 7:01 AM CDT [facility] ALKALINE PHOSPHATASE S/P/B 94 45 - 115 U/L 03/06/2025 7:01 AM CDT [facility] AST 23 15 - 37 U/L 03/06/2025 7:01 AM T [facility] ALT 18 16 - 61 U/L 03/06/2025 7:01 AM T [facility] TOTAL PROTEIN S/P/B 6.2(L) 6.4 - 8.2 G/DL 03/06/2025 7:01 AM CDT [facility] ALBUMIN S/P/B 2.7(L) 3.4 - 5.0 G/DL 03/06/2025 7:01 AM T [facility] ANION GAP 4.9 2.0 - 10.0 MMOL/L 03/06/2025 7:01 AM T [facility] OSMOLALITY (CALC) 300 MOSM/KG 025 7:01 AM T [facility] Comment:REFERENCE RANGE NOT ESTABLISHED GFR ESTIMATE 36(L) >90 ML/MIN/1. 73 M2 03/06/2025 7:01 AM T [facility] GFR NOTES GFR REFERENCE S: 03/06/2025 7:01 AM T [facility] Comment: THE ESTIMATED GFR IS [...] ml/min/1.73 m2 G5,KIDNEY FAILURE: <15 ml/min/1.73 m2 03/06/2025 6:10 AM CDT us Segundo Navarrete MD LABORATORY Final Result [facility] [address] [place] [address], [id number] * (ABNORMAL) CBC W/DIFF AUTOMATED (03/06/2025 6:10 AM CDT) Only the most recent of36 resultswithin the time period is included. WBC 10.32 4.00 - 10.80 x10'3/uL 03/06/2025 7:06 AM CDT [facility] RBC 3.09(L) 4.50 - 6.10 x10'6/uL 03/06/2025 7:06 AM CDT [facility] HGB 7.6(L) 13.0 - 18.0 G/DL 03/06/2025 7:06 AM CDT [facility] HCT 25.8(L) 37.0 - 52.0 % 03/06/2025 7:06 AM CDT [facility] MCV 83.5 78.0 - 100.0 FL 03/06/2025 7:06 AM CDT [facility] MCH 24.6(L) 27.0 - 31.0 PG 03/06/2025 7:06 AM CDT [facility] MCHC 29.5(L) 33.0 - 36.0 G/DL 03/06/2025 7:06 AM CDT [facility] RDW 19.8(H) 11.5 - 14.5 % 03/06/2025 7:06 AM CDT [facility] PLT 67(L) 150 - 350 x10'3/uL 03/06/2025 8:06 AM CDT [facility] DIFFERENTIAL TYPE AUTOMATED DIFFERENTIAL 03/06/2025 8:06 AM CDT [facility] SEG NEUTROPHILS 73.1 % 8:06 AM CDT [facility] LYMPHOCYTES 10.8 % 03/06/2025 8:06 AM CDT [facility] MONOCYTES 12.2 % 03/06/2025 8:06 AM CDT [facility] EOSINOPHILS 2.5 % 03/06/2025 8:06 AM CDT [facility] BASOPHILS 0.3 % 03/06/2025 8:06 AM CDT [facility] IMMATURE GRANS % 0.6 % 03/06/20 8:06 AM CDT [facility] ABS. NEUTROPHILS 7.60 1.60 - 8.30 x10'3/uL 03/06/2025 8:06 AM CDT [facility] ABS. LYMPHOCYTES 1.11 0.80 - 4.70 x10'3/uL 03/06/2025 8:06 AM CDT [facility] ABS. MONOCYTES 1.26 0.00 - 1.50 x10'3/uL 03/06/2025 8:06 AM CDT [facility] ABS. EOSINOPHILS 0.26 0.00 - 0.40 x10'3/uL 03/06/2025 8:06 AM CDT [facility] ABS. BASOPHILS 0.03 0.00 - 0.20 x10'3/uL 03/06/2025 8:06 AM CDT [facility] ABS. IMMATURE GRANULOCYTES 0.06(H) 0.00 - 0.03 x10'3/uL 03/06/2025 8:06 AM CDT [facility] ABS. NUCLEATED RBC'S 0.05(H) 0.00 - 0.01 x10'3/uL 03/06/2025 8:06 AM CDT [facility] NRBC % 0.5 % 03/06/2025 8:06 AM CDT [facility] 03/06/2025 6:10 AM CDT us Segundo Navarrete MD LABORATORY Final Result [facility] [address] [place] [address], [id number] * US GD PARACENT W IMAGING (03/05/2025 1:03 PM CDT) Only the most recent of2 resultswithin the time period is included. Anatomical Region Laterality Modality Ultrasound 03/05/2025 4:20 PM CDT Impressions 03/06/2025 1:37 PM CDT IMPRESSION: Successful ultrasound-guided therapeutic abdominal paracentesis yielding 4400 ml of clear yellow peritoneal fluid. PLAN: 1. 0 g of albumin given post procedure. 2. Advanced activity. Preprocedure activity level after 1 hour bedrest. 3. Vital signs every 30 minutes x2 post paracentesis. 4. Notify provider if patient exhibits abdominal pain or lightheadedness post procedure. The attending radiologist, Dr. Oakes, was in the department for all critical portions of the procedure, has reviewed the images, and agrees with the content of this report. Dictated By: KESHA Munoz on 03/05/2025 4:20 PM Ordered By: SEGUNDO NAVARRETE Interpreted By: KESHA Munoz, 03/05/2025 4:20 PM Narrative 03/06/2025 1:37 PM [address] [address] PROCEDURE: ULTRASOUND-GUIDED THERAPEUTIC ABDOMINAL PARACENTESIS. DATE OF PROCEDURE: 03/05/2025 12:12 PM INDICATION: 69 years old Male with who presents for a therapeutic abdominal paracentesis. PHYSICIANS: Elizabeth Oakes M.D. edge trimming machine operator: Renny Quevedo PA-C MEDICATIONS: 1% lidocaine local anesthesia only. TECHNIQUE AND FINDINGS: Informed written consent was obtained. The patient was then brought to the procedure room, placed in the supine position, and a timeout was performed. Prior to the procedure a brief abdominal ultrasound was used to evaluate the extent of ascites. A pocket in the right midabdomen was chosen for needle placement. The patient's right midabdomen was then prepped and draped in standard sterile fashion; including hand cleaning with an alcohol based hand rub. Then after 1% lidocaine local anesthesia, a 5 Cymro catheter/needle was introduced into the pocket of ascitic fluid within the peritoneal cavity under ultrasound guidance. The needle was removed and approximately 3 cc of clear yellow peritoneal fluid was aspirated. An additional 4400 ml of fluid were aspirated under suction. Followup ultrasound demonstrated significant decrease in the extent of ascites, with an ultrasound image of this was stored. The catheter was removed and a sterile dressing was applied. The patient appeared to tolerate the procedure well. Procedure Note Elizabeth Oakes MD - 03/06/2025 [facility] [address] [place], [place] [address] PROCEDURE: ULTRASOUND-GUIDED THERAPEUTIC ABDOMINAL PARACENTESIS. DATE OF PROCEDURE: 03/05/2025 12:12 PM INDICATION: 69 years old Male with who presents for a therapeuticabdominal paracentesis. PHYSICIANS: Elizabeth Oakes M.D. edge trimming machine operator: Renny Quevedo PA-C MEDICATIONS: 1% lidocaine local anesthesia only. TECHNIQUE AND FINDINGS: Informed written consent was obtained. The patient was then brought to theprocedure room, placed in the supine position, and a timeout wasperformed. Prior to the procedure a brief abdominal ultrasound was used toevaluate the extent of ascites. A pocket in the right midabdomen waschosen for needle placement. The patient's right midabdomen was thenprepped and draped in standard sterile fashion; including hand cleaningwith an alcohol based hand rub. Then after 1% lidocaine local anesthesia,a 5 Cymro catheter/needle was introduced into the pocket of ascitic fluidwithin the peritoneal cavity under ultrasound guidance. The needle wasremoved and approximately 3 cc of clear yellow peritoneal fluid wasaspirated. An additional 4400 ml of fluid were aspirated under suction.Followup ultrasound demonstrated significant decrease in the extent ofascites, with an ultrasound image of this was stored. The catheter wasremoved and a sterile dressing was applied. The patient appeared totolerate the procedure well. IMPRESSION: Successful ultrasound-guided therapeutic abdominal paracentesis [id number] ml of clear yellow peritoneal fluid. PLAN: 1. 0 g of albumin given post procedure. 2. Advanced activity. Preprocedure activity level after 1 hour bedrest. 3. Vital signs every 30 minutes x2 post paracentesis. 4. Notify provider if patient exhibits abdominal pain or lightheadednesspost procedure. The attending radiologist, Dr. Oakes, was in the department for allcritical portions of the procedure, has reviewed the images, and agreeswith the content of this report. Dictated By: KESHA Munoz on 03/05/2025 4:20 PM Ordered By: SEGUNDO NAVARRETE Interpreted By: KESHA Munoz, 03/05/2025 4:20 PM us Segundo Navarrete MD ULTRASOUND Final Result * (ABNORMAL) PROTIME/INR, VENOUS (PROTHROMBIN TIME) (03/05/2025 4:19 AM CDT) Only the most recent of21 resultswithin the time period is included. PROTIME 18.0(H) 9.4 - 12.5 SEC 03/05/2025 5:03 AM CDT [facility] INR 1.6(H) 0.8 - 1.1 03/05/2025 5:03 AM CDT [facility] 03/05/2025 4:19 AM CDT us Segundo Navarrete MD LABORATORY Final Result Performing Organization Address [facility]/ZIP Co de Phone Number [facility] [address] [place] [address], [id number] * PHOSPHORUS, INORGANIC PHOSPHATE (03/03/2025 3:48 AM CDT) Only the most recent of5 resultswithin the time period is included. PHOSPHORUS 3.3 2.5 - 4.9 MG/DL 03/03/2025 4:40 AM CDT [facility] 03/03/2025 3:48 AM CDT us Charu Abraham MD LABORATORY Final Result [facility] [address] [place] [address], [place] [phone] * MAGNESIUM (03/03/2025 3:48 AM CDT) Only the most recent of14 resultswithin the time period is included. MAGNESIUM 2.6 1.6 - 2.6 MG/DL 03/03/2025 4:40 AM CDT [facility] 03/03/2025 3:48 AM CDT Charu Abraham MD LABORATORY Final Result [facility] [address] [place] [address], [id number] * ENDOSCOPY (SCAN ORDER) (03/02/2025 11:27 AM CDT) Marisol Mac MD SCANNING Final Result * (ABNORMAL) BMP WITHOUT GLUCOSE (03/02/2025 11:26 AM CDT) SODIUM S/P/B 132(L) 136 - 145 MMOL/L 03/02/2025 12:54 PM CDT [facility] POTASSIUM S/P/B 3.3(L) 3.5 - 5.1 MMOL/L 03/02/2025 12:54 PM CDT [facility] CHLORIDE S/P/B 96(L) 97 - 115 MMOL/L 03/02/2025 12:54 PM CDT [facility] CO2 27.3 21.0 - 32.0 MMOL/L 03/02/2025 12:54 PM CDT [facility] BUN 101(H) 7 - 18 MG/DL 03/02/2025 12:54 PM CDT [facility] CREATININE S/P/B 2.34(H) 0.70 - 1.30 MG/DL 03/02/2025 12:56 PM CDT [facility] CALCIUM S/P/B 8.3(L) 8.5 - 10.1 MG/DL 03/02/2025 12:54 PM CDT [facility] ANION GAP 8.7 2.0 - 10.0 MMOL/L 03/02/2025 12:54 PM CDT [facility] GFR ESTIMATE 29(L) >90 ML/MIN/1. 73 M2 03/02/2025 12:56 PM CDT [facility] GFR NOTES GFR REFERENCE S: 03/02/2025 12:56 PM CDT [facility] Comment: THE ESTIMATED GFR IS [...] ml/min/1.73 m2 G5,KIDNEY FAILURE: <15 ml/min/1.73 m2 03/02/2025 11:2 6 AM CDT Ivanna Iglesias MD LABORATORY Final Re sult [facility] [address] [place] [address], [id number] * (ABNORMAL) CBC, AUTO, NO DIFF (03/02/2025 11:26 AM CDT) WBC 10.38 4.00 - 10.80 x10'3/uL 03/02/2025 12:52 PM CDT [facility] RBC 3.49(L) 4.50 - 6.10 x10'6/uL 03/02/2025 12:52 PM CDT [facility] HGB 8.8(L) 13.0 - 18.0 G/DL 03/02/2025 12:52 PM CDT [facility] HCT 28.3(L) 37.0 - 52.0 % 03/02/2025 12:52 PM CDT [facility] MCV 81.1 78.0 - 100.0 FL 03/02/2025 12:52 PM CDT [facility] MCH 25.2(L) 27.0 - 31.0 PG 03/02/2025 12:52 PM CDT [facility] MCHC 31.1(L) 33.0 - 36.0 G/DL 03/02/2025 12:52 PM CDT [facility] RDW 18.7(H) 11.5 - 14.5 % 03/02/2025 12:52 PM CDT [facility] PLT 114(L) 150 - 350 x10'3/uL 03/02/2025 12:52 PM CDT [facility] 03/02/2025 11:2 6 AM CDT us Ivanna Iglesias MD LABORATORY Final Re sult [facility] [address] [place] [address], [id number] * Pathology (03/02/2025 12:00 AM CDT) PATHOLOGY [facility] Department of Laboratory Medicine [address] [place] [address] , extension [phone] Pathology Report Surgical Pathology Report Name: OBIE SIMS Specimen #: [id number] Age: 12 1955 (Age: 69) Location: [address] Sex: M Procedure Date: 03/02/2025 [facility] #: [id number] Date Received: 03/02/2025 Date Reported: 03/05/2025 Provider: MARISOL MAC MD Source: Gastric biopsies Clinical History: Anemia. Acute upper GI bleed. FINAL DIAGNOSIS: Stomach, biopsies: - Antral type mucosa with reactive gastropathy. - Body type mucosa with mild chronic gastritis and features consistent with proton pump inhibitor effect. - No Helicobacter pylori seen on routine stain. Gross Description: Received in formalin, labeled with a patient label and as gastric biopsy are 4 pieces of bonilla tissue ranging from 0.2 to 0.5 cm. The specimen is entirely submitted in cassette 1. Gross examination (when applicable), interpretation, and sign out were performed at [facility], [address] [place] [address]. Electronically Signed Out CAROLA OSORIO MD [facility] TISSUE GASTRIC BIOPSY SPECIMEN / Unknown 03/02/2025 1:26 PM CDT Marisol Mac MD PATHOLOGY/CYTOLOGY ORDERABLES Fi nal Result Performing Organization Address [facility] Co de Phone Number [facility] [address] [place] [address], [place] [phone] [id number] * (ABNORMAL) HEMOGLOBIN AND HEMATOCRIT (03/01/2025 4:18 PM CDT) Only the most recent of4 resultswithin the time period is included. HGB 9.2(L) 13.0 - 18.0 G/DL 03/01/2025 4:48 PM CDT [facility] HCT 29.7(L) 37.0 - 52.0 % 03/01/2025 4:48 PM CDT [facility] 03/01/2025 4:18 PM CDT us Ryan Metcalf MD LABORATORY Final Result Performing Organization Address [facility] Co de Phone Number [facility] [address] [place] [address], [place] [phone] * (ABNORMAL) HEMOGLOBIN, GLYCOSYLATED (03/01/2025 4:21 AM CDT) Only the most recent of3 resultswithin the time period is included. HGB A1C 6.7(H) <5.7 % 03/01/2025 6:05 AM CDT [facility] ESTIMATED AVG GLUCOSE 146(H) 74 - 114 MG/DL 03/01/2025 6:05 AM CDT [facility] 03/01/2025 4:21 AM CDT Charu Abraham MD LABORATORY Final Result Performing Organization Address [facility] Co de Phone Number [facility] [address] [place] [address], [id number] * TRANSFUSE RED BLOOD CELLS (03/01/2025 2:32 AM CDT) Only the most recent of3 resultswithin the time period is included. Ryan Metcalf MD NURSING TREATMENT ORDERABLES - BLOOD ADMIN Final Result * CULTURE URINE (02/28/2025 9:41 PM CDT) Only the most recent of5 resultswithin the time period is included. SPEC DESCRIPTION URINE CLEAN CATCH 02/28/2025 9:41 PM CDT [facility] SPECIAL REQUESTS NO SPECIAL REQUEST 02/28/2025 9:41 PM CDT [facility] CULTURE RESULT NO GROWTH (< OR = 1,000 CFU/ML) 03/02/2025 11:50 AM CDT [facility] URINE SPECIMEN OBTAINED BY CLEAN CATCH PROCEDURE / Unknown 02/28/2025 9:41 PM CDT 03/01/2025 4:56 AM CDT Maria Del Carmen REBOLLEDO MICROBIOLOGY - GENERAL ORDERABL ES Final Result Performing Organization Address [facility] Co de Phone Number [facility] [address] [place] [address], [place] [phone] * URINALYSIS (02/28/2025 9:39 PM CDT) Only the most recent of7 resultswithin the time period is included. COLOR (U) LIGHT YELLOW 02/28/2025 10:04 PM CDT [facility] TRANSPARENCY CLEAR 02/28/2025 10:04 PM CDT [facility] SPECIFIC GRAVITY (U) 1.013 1.002 - 1.035 02/28/2025 10:04 PM CDT [facility] U PH 5.0 5 - 8 02/28/2025 10:04 PM CDT [facility] PROTEIN RANDOM (U) NEGATIVE NEGATIVE 02/28/2025 10:04 PM CDT [facility] GLUCOSE (U) NEGATIVE NEGATIVE MG/DL 02/28/2025 10:04 PM CDT [facility] KETONES MG/DL (U) NEGATIVE NEGATIVE 02/28/2025 10:04 PM CDT [facility] BILIRUBIN (U) NEGATIVE NEGATIVE 02/28/2025 10:04 PM CDT [facility] BLOOD (U) NEGATIVE NEGATIVE 02/28/2025 10:04 PM CDT [facility] NITRITES NEGATIVE NEGATIVE 02/28/2025 10:04 PM CDT [facility] UROBILINOGEN NORMAL 0 - 1 EU/DL 02/28/2025 10:04 PM CDT [facility] LEUKOCYTES (U) NEGATIVE NEGATIVE 02/28/2025 10:04 PM CDT [facility] RBC/HPF <1 0 - 3 /HPF 02/28/2025 10:04 PM CDT [facility] WBC/HPF 1 0 - 6 /HPF 02/28/2025 10:04 PM CDT [facility] BACTERIA (U) NONE /HPF 02/28/2025 10:04 PM CDT [facility] SQUAMOUS EPITHELIALS <1 02/28/2025 10:04 PM CDT [facility] HYALINE CASTS 11 02/28/2025 10:04 PM CDT [facility] URINE SPECIMEN OBTAINED BY CLEAN CATCH PROCEDURE / Unknown 02/28/2025 9:39 PM CDT Maria Del Carmen REBOLLEDO URINE ORDERABLES Final Result [facility] [address] [place] [address], [id number] * (ABNORMAL) POCT ACUTE VENOUS PANEL (02/28/2025 8:02 PM CDT) SODIUM WHOLE BLOOD 127(L) 138 - 146 mmol/L 02/28/2025 8:04 PM CDT [facility] POTASSIUM WHOLE BLOOD 3.9 3.5 - 4.9 mmol/L 02/28/2025 8:04 PM CDT [facility] CA IONIZED WH BLOOD 1.01(L) 1.12 - 1.32 mmol/L 02/28/2025 8:04 PM CDT [facility] POC PH VENOUS 7.373 7.31 - 7.41 02/28/2025 8:04 PM CDT [facility] POC PCO2 VENOUS 49.5 41.0 - 51.0 MMHG 02/28/2025 8:04 PM CDT [facility] POC PO2 VENOUS 20(L) 25 - 40 MMHG 02/28/2025 8:04 PM CDT [facility] POC HCO3 VENOUS 28.8(H) 23 - 28 MMOL/L 02/28/2025 8:04 PM CDT [facility] P[facility] TCO2 VENOUS 30(H) 24 - 29 MMOL/L 02/28/2025 8:04 PM CDT [facility] BASE EXCESS VENOUS 4(H) 0 - 3 MMOL/L 02/28/2025 8:04 PM CDT [facility] POC HEMATOCRIT 26(L) 38 - 51 % 02/28/2025 8:04 PM CDT [facility] TIME TEST WAS PERFORMED: 200102/28/2025 8:04 PM CDT [facility] 02/28/2025 8:0 2 PM CDT us Charu Abraham MD POCT ORDERABLES - DEVICE Final Result Performing Organization Address [facility] Co de Phone Number [facility] [address] [place] [address], [id number] * STAPH SCREENING BY PCR (02/28/2025 8:00 PM CDT) SPECIMEN SOURCE RESPIRATORY, NOSE 02/28/2025 8:11 PM CDT [facility] MRSA BY PCR NASAL METHICILLIN RESISTANT STAPH AUREUS NOT DETECTED METHICILLIN RESISTANT STAPH AUREUS NOT DETECTED 03/01/2025 11:01 AM CDT [facility] NASAL STRUCTURE / Unknown 02/28/2025 8:00 PM CDT us Charu Abraham MD MICROBIOLOGY - GENERAL ORDERABL ES Final Result Performing Organization Address [facility] de Phone Number [facility] [address] [place] [address], [place] [phone] * LACTIC ACID - SINGLE (02/28/2025 8:00 PM CDT) LACTIC ACID VENOUS 1.1 0.4 - 2.0 MMOL/L 02/28/2025 8:33 PM CDT [facility] 02/28/2025 8:00 PM CDT us Charu Abraham MD LABORATORY Final Result Performing Organization Address [facility] Co de Phone Number [facility] [address] [place] [address], [id number] * PARTIAL THROMBOPLASTIN TIME,PTT (02/28/2025 7:04 PM CDT) Only the most recent of3 resultswithin the time period is included. Pathologist [facility] PTT 28.7 25.1 - 36.5 SEC 02/28/2025 7:45 PM CDT [facility] 02/28/2025 7:04 PM CDT Jacinta Conklin MD LABORATORY Final Result [facility] [address] [place] [address], [id number] * TROPONIN, QUANT (02/28/2025 7:04 PM CDT) Only the most recent of5 resultswithin the time period is included. [facility] TROPONIN I HIGH SENSITIVITY 70 0 - 78 ng/L 02/28/2025 7:52 PM CDT [facility] 02/28/2025 7:04 PM CDT Charu Abraham MD LABORATORY Final Result Performing Organization Address City/[facility]/ZIP Co de Phone Number [facility] [address] [place] [address], [id number] * (ABNORMAL) THYROID STIM HORMONE, TSH (02/28/2025 7:04 PM CDT) [facility] TSH 8.370(H) 0.358 - 3.740 uIU/ML 02/28/2025 7:52 PM CDT [facility] Comment: ASSAY PERFORMED BY CHEMILUMINESCENCE METHODOLOGY USING [facility]. [facility]. PATIENT RESULTS DETERMINED BY ASSAYS USING DIFFERENT MANUFACTURERS FOR METHODS MAY NOT BE COMPARABLE. 02/28/2025 7:04 PM CDT Charu Abraham MD LABORATORY Final Result [facility] [address] [place] [address], [id number] * CT CHEST+ABD+PEL WO CON (02/28/2025 6:43 PM CDT) Only the most recent of2 resultswithin the time period is included. Anatomical Region Laterality Modality Chest, Abdomen, Pelvis Computed Tomography 02/28/2025 6:46 PM CDT Impressions 02/28/2025 9:41 PM CDT IMPRESSION: 1. Assessment for GI bleed is very limited on this noncontrast CT evaluation especially given presence of abdominal ascites. 2. Moderate volume ascites. 3. Cardiomegaly and coronary artery disease. 4. Cholelithiasis without evidence of acute cholecystitis. 5. Stable right adrenal mass. 6. Nonspecific mild enlargement right external iliac and left pelvic lymph nodes. 7. New amorphous left axillary soft tissue findings, nonspecific. Additional numerous incidental, nonurgent, stable and chronic findings as detailed above. Dictated By: Anjali Garcia MD on 02/28/2025 6:46 PM The attending radiologist has reviewed the image(s) and agrees with the content of this report. Ordered By: JACINTA CONKLIN Interpreted By: Anjali Garcia MD, 02/28/2025 6:46 PM Narrative 02/28/2025 9:41 PM CDT [facility] [address] [place], [place] [address] Examination: CT chest, abdomen and pelvis without IV contrast. Clinical Information: Concerns for GI bleed. Nausea and vomiting History of CHF indicating high. Comparison: Selected images and reports of 01/25/2025 CT abdomen/pelvis and CT chest 12/26/2024. Technique: IV contrast: None Oral contrast: None. Technical comments: Standard technique. Dose reduction: This CT exam was performed using one or more of the following dose reduction techniques: Automated exposure control, adjustment of the mA and/or kV according to patient size, and/or use of iterative reconstruction technique. THORAX FINDINGS: Mediastinum: The heart is mildly enlarged. There are aortic valvular calcifications and aortic valvuloplasty. There is multivessel coronary artery disease with postsurgical changes of prior coronary artery bypass grafting. There is decreased attenuation of the blood pool in relationship to the myocardium suggestive of anemia. Lungs: There is no focal parenchymal lung consolidation. Suggestion of a few tiny scattered calcified lung nodules Pleura: Minimal right pleural lipomatosis. Small right and tiny/trace left pleural effusions. No pneumothorax. ABDOMEN PELVIS FINDINGS: Liver and bile ducts: Artifact versus slightly nodular contours but no hepatomegaly. Gallbladder: Hyperdensities within decompressed gallbladder may represent stones and/or sludge. Partially obscured pericholecystic fluid and fat stranding, nonspecific. Pancreas: Involutional changes. Nonspecific surrounding fat stranding and fluid. Spleen: Unremarkable spleen with the exception of surrounding ascites. Adrenals: There is a 4.2 cm right adrenal mass which is not significantly changed when compared to at least 02/06/2023. Stable appearance of the left adrenal gland. : There is bilateral cortical renal atrophy and scarring. Redemonstrated renal cortical hypodense masses with attenuation characteristics of cysts. Dominant largest one left kidney lower pole exophytic and also smaller 1 in the right kidney lower pole exophytic. Both appear fairly similar to prior study. Limited evaluation on non-IV contrast study. The urinary bladder is slightly overdistended which may relate to some degree of urinary retention. Gender specific: The prostate gland is mildly enlarged. GI: The bowel is normal in caliber. Stomach is decompressed and partially obscured by surrounding structures and abdominal ascites thereby limiting evaluation. Scattered air throughout small bowel and colon to level of the rectum. No bowel obstruction at this time. Difficult to characterize due to partial obscuration from abdominal ascites. Free air or fluid: There is moderate volume ascites. No free air in the abdomen. VASCULATURE: There are scattered atherosclerotic changes throughout the aorta and its branches. Cardiac valvular and coronary calcified dense atherosclerotic plaque. Potential bovine arch anatomic variant of the aortic arch. LYMPH NODES: Limited evaluation of the lymph nodes on this non-IV contrast study. However suggestion of a mildly enlarged 1.2 cm right external iliac lymph node (2/188) which is similar when compared to 02/06/2023. Interval prominence of left pelvic dominant lymph node series 2 image 171 measuring maximally 13 mm. BONES/SOFT TISSUES: There is a left hip arthroplasties obscuring portions of the pelvis. New amorphous areas of hyperattenuation in the left axillary soft tissues. No subcutaneous emphysema. Old healed left posterolateral rib fractures. Left hip arthroplasty. Stable appearance of the right hip given differences in technique. Gynecomastia. Small umbilical hernia containing fat and some ascitic fluid. Procedure Note Lisa Nelson MD - 02/28/2025 [facility] [address] [place], [place] [address] Examination: CT chest, abdomen and pelvis without IV contrast. Clinical Information: Concerns for GI bleed. Nausea and vomiting Historyof CHF indicating high. Comparison: Selected images and reports of 01/25/2025 CT abdomen/pelvis andCT chest 12/26/2024. Technique: IV contrast: None Oral contrast: None. Technical comments: Standard technique. Dose reduction: This CT exam was performed using one or more of thefollowing dose reduction techniques: Automated exposure control,adjustment of the mA and/or kV according to patient size, and/or use ofiterative reconstruction technique. THORAX FINDINGS: Mediastinum: The heart is mildly enlarged. There are aortic valvularcalcifications and aortic valvuloplasty. There is multivessel coronaryartery disease with postsurgical changes of prior coronary artery bypassgrafting. There is decreased attenuation of the blood pool in relationshipto the myocardium suggestive of anemia. Lungs: There is no focal parenchymal lung consolidation. Suggestion of afew tiny scattered calcified lung nodules Pleura: Minimal right pleural lipomatosis. Small right and tiny/trace leftpleural effusions. No pneumothorax. ABDOMEN PELVIS FINDINGS: Liver and bile ducts: Artifact versus slightly nodular contours but nohepatomegaly. Gallbladder: Hyperdensities within decompressed gallbladder may representstones and/or sludge. Partially obscured pericholecystic fluid and fat stranding, nonspecific. Pancreas: Involutional changes. Nonspecific surrounding fat stranding andfluid. Spleen: Unremarkable spleen with the exception of surrounding ascites. Adrenals: There is a 4.2 cm right adrenal mass which is not significantlychanged when compared to at least 02/06/2023. Stable appearance of the leftadrenal gland. : There is bilateral cortical renal atrophy and scarring. Redemonstratedrenal cortical hypodense masses with attenuation characteristics of cysts.Dominant largest one left kidney lower pole exophytic and also smaller 1in the right kidney lower pole exophytic. Both appear fairly similar toprior study. Limited evaluation on non- IV contrast study. The urinary bladder is slightly overdistended which may relate to somedegree of urinary retention. Gender specific: The prostate gland is mildly enlarged. GI: The bowel is normal in caliber. Stomach is decompressed and partiallyobscured by surrounding structures and abdominal ascites thereby limitingevaluation. Scattered air throughout small bowel and colon to level of therectum. No bowel obstruction at this time. Difficult to characterize dueto partial obscuration from abdominal ascites. Free air or fluid: There is moderate volume ascites. No free air in theabdomen. VASCULATURE: There are scattered atherosclerotic changes throughout the aorta and itsbranches. Cardiac valvular and coronary calcified dense atherosclerotic plaque. Potential bovine arch anatomic variant of the aortic arch. LYMPH NODES: Limited evaluation of the lymph nodes on this non-IV contrast study. However suggestion of a mildly enlarged 1.2 cm right external iliac lymphnode (2/188) which is similar when compared to 02/06/2023. Interval prominence of left pelvic dominant lymph node series 2 image 171measuring maximally 13 mm. BONES/SOFT TISSUES: There is a left hip arthroplasties obscuring portions of the pelvis. New amorphous areas of hyperattenuation in the left axillary soft tissues. No subcutaneous emphysema. Old healed left posterolateral rib fractures. Left hip arthroplasty.Stable appearance of the right hip given differences in technique.Gynecomastia. Small umbilical hernia containing fat and some asciticfluid. IMPRESSION: 1. Assessment for GI bleed is very limited on this noncontrast CTevaluation especially given presence of abdominal ascites. 2. Moderate volume ascites. 3. Cardiomegaly and coronary artery disease. 4. Cholelithiasis without evidence of acute cholecystitis. 5. Stable right adrenal mass. 6. Nonspecific mild enlargement right external iliac and left pelvic lymphnodes. 7. New amorphous left axillary soft tissue findings, nonspecific. Additional numerous incidental, nonurgent, stable and chronic findings asdetailed above. Dictated By: Anjali Garcia MD on 02/28/2025 6:46 PM The attending radiologist has reviewed the image(s) and agrees with thecontent of this report. Ordered By: JACINTA CONKLIN Interpreted By: Anjali Garcia MD, 02/28/2025 6:46 PM us Jacinta Conklin MD CT Final Result * EKG Reading (02/28/2025 5:23 PM CDT) Narrative Jacinta Conklin MD - 02/28/2025 5:23 PM CDT Jacinta Conklin MD 02/28/2025 6:37 PM EKG Reading Date/Time: 02/28/2025 5:23 PM Performed by: Jacinta Conklin MD Authorized by: Jacinta Conklin MD Interpreted by ED physician Rhythm: atrial fibrillation Rate: normal QRS axis: normal Conduction: conduction normal ST Segments: ST segments normal T Waves: T waves normal Other: no other findings Clinical impression: dysrhythmia - atrial us Jacinta Conklin MD [facility] Final Result * Critical Care (02/28/2025 5:20 PM CDT) Narrative Jacinta Conklin MD - 02/28/2025 5:20 PM CDT Jacinta Conklin MD 02/28/2025 6:37 PM Critical Care Performed by: Jacinta Conklin MD Authorized by: Jacinta Conklin MD Critical care provider statement: Critical care time (minutes): 50 Critical care was necessary to treat or prevent imminent or life-threatening deterioration of the following conditions: Cardiac failure, renal failure and metabolic crisis Critical care was time spent personally by me on the following activities: Development of treatment plan with patient or surrogate, discussions with consultants, examination of patient, re-evaluation of patient's condition, pulse oximetry and ordering and performing treatments and interventions Care discussed with: admitting provider us Jacinta Conklin MD PROCEDURE/MINOR SURGICAL ORDE RABLES Final Result * ECG 12 lead (02/28/2025 4:53 PM CDT) Only the most recent of9 resultswithin the time period is included. 02/28/2025 4:53 PM CDT Narrative [facility] - 02/28/2025 8:08 PM CDT SJS-ED Test Date: 2025-02-28 Pat Name: OBIE SIMS Department: 70 Room: [place] [address] Gender: Male [employer]er [employer]: : 1955 Requested By: MARIA DEL CARMEN BALDWIN Order Number: [id number] Reading MD: Estefania Boston Measurements Intervals [place] Rate: 59 P: 0 SD: 305 QRS: -40 QRSD: 144 T: 122 QT: 442 QTc: 440 Interpretive Statements SINUS RHYTHM WITH FIRST DEGREE A-V BLOCK LEFT AXIS DEVIATION LEFT BUNDLE BRANCH BLOCK Procedure Note Estefania Boston MD - 02/28/2025 SJS-ED Test Date: 2025-02-28 Pat Name: OBIE SIMS Department: 70 Room: [place] [address] 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 LACTIC ACID VENOUS 0.8 0.4 - 2.0 MMOL/L 02/28/2025 5:29 PM CDT [facility] 02/28/2025 4:49 PM CDT us Maria Del Carmen [facility] Final Result Performing Organization Address [facility] Co de Phone Number [facility] [address] [place] [address], [phone] * (ABNORMAL) PRO-BRAIN NATRIURETIC PEPTIDE (02/28/2025 4:49 PM CDT) Only the most recent of7 resultswithin the time period is included. PRO-B TYPE NATRIURETIC PEPTIDE 5,946(H) <125 PG/ML 02/28/2025 5:42 PM CDT [facility] Comment: AGE INDEPENDENT: <300 PG/ML HAS [...] OF 89% AND 72% FOR ACUTE CHF. 02/28/2025 4:49 PM CDT us Maria Del Carmen [facility] Final Result Performing Organization Address [facility] [[email or web address]] de Phone Number [facility] [address] [place] [address], [phone] * TYPE AND SCREEN (02/28/2025 4:49 PM CDT) UNITS ORDERED 4 03/01/2025 1:41 AM CDT [facility] ABO/RH A POSITIVE 02/28/2025 5:53 PM CDT [facility] ANTIBODY SCREEN NEGATIVE 5:53 PM CDT [facility] SAMPLE EXPIRATION 03/03/2025,2359 02/28/2025 5:05 PM CDT [facility] BB COMMENT PATIENT HAS PREVIOUS ANTIBODY HISTORY WITH CURRENT NEGATIVE SCREEN. COMPATIBLE BLOOD WILL TAKE EXTRA TIME TO PREPARE. 02/28/2025 5:53 PM CDT [facility] BLOOD UNIT NUMBER [id number] 02/28/2025 6:36 PM CDT [facility] PRODUCT: PC LEUKOPOOR 02/28/2025 6:36 PM CDT [facility] UNIT DIVISION 00 02/28/2025 6:36 PM CDT [facility] BLOOD UNIT STATUS UNIT RELEASED 02/28/2025 6:36 PM CDT [facility] UNIT ANTIGEN TYPE FyA POS 02/28/2025 6:36 PM CDT [facility] TRANSFUSION STATUS DO NOT ISSUE FOR TRANSFUSION 02/28/2025 6:36 PM CDT [facility] BLOOD UNIT NUMBER [id number] 02/28/2025 6:36 PM CDT [facility] PRODUCT: PC LEUKOPOOR 02/28/2025 6:36 PM CDT [facility] UNIT DIVISION 00 02/28/2025 6:36 PM CDT [facility] BLOOD UNIT STATUS TRANSFUSED,FINAL 03/01/2025 7:00 AM CDT [facility] ISSUE DATE/TIME [id number] 025 7:00 AM CDT [facility] PRODUCT CODE [id number] 03/01/2025 7:00 AM CDT [facility] ABO/RH Unit A POS 03/01/2025 7:00 AM CDT [facility] ABO/RH UNIT ISBT CODE 6200 03/01/2025 7:00 AM CDT [facility] BLOOD UNIT EXPIRATION DATE [id number] 03/01/2025 7:00 AM CDT [facility] UNIT ANTIGEN TYPE FyA NEG 02/28/2025 6:36 PM CDT [facility] TRANSFUSION STATUS OK TO TRANSFUSE 02/28/2025 6:38 PM CDT [facility] CROSSMATCH COMPATIBLE 02/28/2025 6:36 PM CDT [facility] BLOOD UNIT NUMBER [id number] 02/28/2025 6:36 PM CDT [facility] PRODUCT: PC LEUKOPOOR 02/28/2025 6:36 PM CDT [facility] UNIT DIVISION 00 02/28/2025 6:36 PM CDT [facility] BLOOD UNIT STATUS UNIT RELEASED 02/28/2025 6:36 PM CDT [facility] UNIT ANTIGEN TYPE FyA POS 02/28/2025 6:36 PM CDT [facility] TRANSFUSION STATUS DO NOT ISSUE FOR TRANSFUSION 02/28/2025 6:36 PM CDT [facility] BLOOD UNIT NUMBER [id number] 02/28/2025 7:14 PM CDT [facility] PRODUCT: PC LEUKOPOOR 02/28/2025 7:14 PM CDT [facility] UNIT DIVISION 00 02/28/2025 7:14 PM CDT [facility] BLOOD UNIT STATUS UNIT RELEASED 02/28/2025 7:14 PM CDT [facility] UNIT ANTIGEN TYPE FyA POS 02/28/2025 7:14 PM CDT [facility] TRANSFUSION STATUS DO NOT ISSUE FOR TRANSFUSION 02/28/2025 7:14 PM CDT [facility] BLOOD UNIT NUMBER [id number] 02/28/2025 7:14 PM CDT [facility] PRODUCT: PC LEUKOPOOR 02/28/2025 7:14 PM CDT [facility] UNIT DIVISION 00 02/28/2025 7:14 PM CDT [facility] BLOOD UNIT STATUS UNIT RELEASED 02/28/2025 7:14 PM CDT [facility] UNIT ANTIGEN TYPE FyA POS 02/28/2025 7:14 PM CDT [facility] TRANSFUSION STATUS DO NOT ISSUE FOR TRANSFUSION 02/28/2025 7:14 PM CDT [facility] BLOOD UNIT NUMBER [id number] 02/28/2025 7:14 PM CDT [facility] PRODUCT: PC LEUKOPOOR 02/28/2025 7:14 PM CDT [facility] UNIT DIVISION 00 02/28/2025 7:14 PM CDT [facility] BLOOD UNIT STATUS TRANSFUSED,FINAL 03/01/2025 7:00 AM CDT [facility] ISSUE DATE/TIME [id number] 025 7:00 AM CDT [facility] PRODUCT CODE [id number] 03/01/2025 7:00 AM CDT [facility] ABO/RH Unit A POS 03/01/2025 7:00 AM CDT [facility] ABO/RH UNIT ISBT CODE 6200 03/01/2025 7:00 AM CDT [facility] BLOOD UNIT EXPIRATION DATE [id number] 03/01/2025 7:00 AM CDT [facility] UNIT ANTIGEN TYPE FyA NEG 02/28/2025 7:14 PM CDT [facility] TRANSFUSION STATUS OK TO TRANSFUSE 02/28/2025 7:42 PM CDT [facility] CROSSMATCH COMPATIBLE 02/28/2025 7:14 PM CDT [facility] BLOOD UNIT NUMBER [id number] 02/28/2025 8:22 PM CDT [facility] PRODUCT: PC LEUKO PHERE BAG2 02/28/2025 8:22 PM CDT [facility] UNIT DIVISION 00 02/28/2025 8:22 PM CDT [facility] BLOOD UNIT STATUS UNIT RELEASED 02/28/2025 8:22 PM CDT [facility] UNIT ANTIGEN TYPE FyA POS 02/28/2025 8:22 PM CDT [facility] TRANSFUSION STATUS DO NOT ISSUE FOR TRANSFUSION 02/28/2025 8:22 PM CDT [facility] BLOOD UNIT NUMBER [id number] 02/28/2025 8:22 PM CDT [facility] PRODUCT: PC LEUKOPOOR 02/28/2025 8:22 PM CDT [facility] UNIT DIVISION 00 02/28/2025 8:22 PM CDT [facility] BLOOD UNIT STATUS UNIT RELEASED 02/28/2025 8:22 PM CDT [facility] UNIT ANTIGEN TYPE FyA POS 02/28/2025 8:22 PM CDT [facility] TRANSFUSION STATUS DO NOT ISSUE FOR TRANSFUSION 02/28/2025 8:22 PM CDT [facility] BLOOD UNIT NUMBER [id number] 02/28/2025 8:22 PM CDT [facility] PRODUCT: PC LEUKOPOOR 02/28/2025 8:22 PM CDT [facility] UNIT DIVISION 00 02/28/2025 8:22 PM CDT [facility] BLOOD UNIT STATUS TRANSFUSED,FINAL 03/02/2025 5:26 AM CDT [facility] ISSUE DATE/TIME [id number] 025 5:26 AM CDT [facility] PRODUCT CODE [id number] 03/02/2025 5:26 AM CDT [facility] ABO/RH Unit A POS 03/02/2025 5:26 AM CDT [facility] ABO/RH UNIT ISBT CODE 6200 03/02/2025 5:26 AM CDT [facility] BLOOD UNIT EXPIRATION DATE [id number] 03/02/2025 5:26 AM CDT [facility] UNIT ANTIGEN TYPE FyA NEG 02/28/2025 8:22 PM CDT [facility] TRANSFUSION STATUS OK TO TRANSFUSE 02/28/2025 8:22 PM CDT [facility] CROSSMATCH COMPATIBLE 02/28/2025 8:22 PM CDT [facility] BLOOD UNIT NUMBER [id number] 03/01/2025 1:41 AM CDT [facility] PRODUCT: PC LEUKOPOOR 03/01/2025 1:41 AM CDT [facility] UNIT DIVISION 00 03/01/2025 1:41 AM CDT [facility] BLOOD UNIT STATUS UNIT RELEASED 03/03/2025 8:38 PM CDT [facility] UNIT ANTIGEN TYPE FyA NEG 03/01/2025 1:41 AM CDT [facility] TRANSFUSION STATUS OK TO TRANSFUSE 03/01/2025 1:41 AM CDT [facility] CROSSMATCH COMPATIBLE 03/01/2025 1:41 AM CDT [facility] BLOOD UNIT NUMBER [id number] 03/01/2025 1:41 AM CDT [facility] PRODUCT: PC LEUKOPOOR 03/01/2025 1:41 AM CDT [facility] UNIT DIVISION 00 03/01/2025 1:41 AM CDT [facility] BLOOD UNIT STATUS UNIT RELEASED 03/01/2025 1:41 AM CDT [facility] UNIT ANTIGEN TYPE FyA POS 03/01/2025 1:41 AM CDT [facility] TRANSFUSION STATUS DO NOT ISSUE FOR TRANSFUSION 03/01/2025 1:41 AM CDT [facility] BLOOD UNIT NUMBER [id number] 03/01/2025 1:41 AM CDT [facility] PRODUCT: PC LEUKOPOOR 03/01/2025 1:41 AM CDT [facility] UNIT DIVISION 00 03/01/2025 1:41 AM CDT [facility] BLOOD UNIT STATUS UNIT RELEASED 03/01/2025 1:41 AM CDT [facility] UNIT ANTIGEN TYPE FyA POS 03/01/2025 1:41 AM CDT [facility] TRANSFUSION STATUS DO NOT ISSUE FOR TRANSFUSION 03/01/2025 1:41 AM CDT [facility] 02/28/2025 4:49 PM CDT Maria Del Carmen [facility] BLOOD B[facility] TEST ORDERABLES Nicole rivera Result [facility] [address] [place] [address], [id number] * XR CHEST PA+LAT (02/28/2025 3:58 PM CDT) Only the most recent of2 resultswithin the time period is included. Anatomical Region Laterality Modality Chest Radiographic Stephie ging 02/28/2025 4:39 PM CDT Impressions 02/28/2025 4:41 PM CDT IMPRESSION: PROBABLE MILD CONGESTIVE HEART FAILURE/FLUID OVERLOAD. Referred By: Interpreted By: Piyush Zhang MD, 02/28/2025 4:39 PM Narrative 02/28/2025 4:41 PM [address] [address] EXAM: XR CHEST PA+LAT INDICATION: Weakness with chest pain and rib pain for several days. Extensive history of heart and lung disease and diabetes. TECHNIQUE: AP and lateral sitting upright view the chest obtained. COMPARISON EXAM: Two-view chest from 02/06/2025. FINDINGS: No consolidation or effusion. Heart size and pulmonary vascular caliber is borderline enlarged for technique. Mildly increased interstitial markings. Mild congestive heart failure/fluid overload could have this appearance. Sternotomy wires and aortic valve prosthesis again noted. Also identified is stable cervical fusion hardware. Old healed left-sided rib fractures. No acute skeletal abnormalities. Procedure Note Piyush Zhang MD - 02/28/[address] [address] EXAM: XR CHEST PA+LAT INDICATION: Weakness with chest pain and rib pain for several days.Extensive history of heart and lung disease and diabetes. TECHNIQUE: AP and lateral sitting upright view the chest obtained. COMPARISON EXAM: Two-view chest from 02/06/2025. FINDINGS: No consolidation or effusion. Heart size and pulmonary vascularcaliber is borderline enlarged for technique. Mildly increasedinterstitial markings. Mild congestive heart failure/fluid overload couldhave this appearance. Sternotomy wires and aortic valve prosthesis againnoted. Also identified is stable cervical fusion hardware. Old healedleft-sided rib fractures. No acute skeletal abnormalities. IMPRESSION: PROBABLE MILD CONGESTIVE HEART FAILURE/FLUID OVERLOAD. Referred By: Interpreted By: Piyush Zhang MD, 02/28/2025 4:39 PM [facility] Del [facility] Final Result * (ABNORMAL) BASIC METABOLIC PANEL (02/26/2025 12:10 PM CDT) Only the most recent of21 resultswithin the time period is included. SODIUM S/P/B 131(L) 136 - 145 MMOL/L 02/26/2025 1:26 PM CDT [facility] POTASSIUM S/P/B 3.0(L) 3.5 - 5.1 MMOL/L 02/26/2025 1:26 PM CDT [facility] CHLORIDE S/P/B 90(L) 98 - 107 MMOL/L 02/26/2025 1:26 PM CDT [facility] CO2 29.0 21.0 - 32.0 MMOL/L 02/26/2025 1:26 PM CDT [facility] GLUCOSE 112(H) 70 - 99 MG/DL 02/26/2025 1:26 PM CDT [facility] Comment: FASTING GLUCOSE 100 TO 125 MG/DL IS CONSISTENT WITH IMPAIRED FASTING GLUCOSE. FASTING GLUCOSE >125 MG/DL IS CONSISTENT WITH DIABETES. RANDOM GLUCOSE >200 MG/DL WITH HYPERGLYCEMIC SYMPTOMS IS CONSISTENT WITH DIABETES. PER ADA GUIDELINES BUN 134(H) 6 - 24 MG/DL 02/26/2025 1:26 PM CDT [facility] CREATININE S/P/B 3.54(H) 0.70 - 1.30 MG/DL 02/26/2025 1:26 PM CDT [facility] CALCIUM S/P/B 8.4 8.4 - 10.5 MG/DL 02/26/2025 1:26 PM CDT [facility] ANION GAP 12.0 5.0 - 15.0 MMOL/L 02/26/2025 1:26 PM CDT [facility] OSMOLALITY (CALC) 316 MOSM/KG 025 1:26 PM CDT [facility] Comment:REFERENCE RANGE NOT ESTABLISHED GFR ESTIMATE 18(L) >89 ML/MIN/1. 73 M2 02/26/2025 1:26 PM CDT [facility] GFR NOTES GFR REFERENCE S: 02/26/2025 1:26 PM CDT [facility] Comment: THE ESTIMATED GFR [...] ml/min/1.73 m2 G5,KIDNEY FAILURE: <15 ml/min/1.73 m2 02/26/2025 12:1 0 PM CDT us Brit Gonzáles MD LABORATORY Final Result [facility] [address] [place] [address], * (ABNORMAL) CALCIUM, IONIZED (02/11/2025 11:56 AM CDT) CALCIUM IONIZED 1.06(L) 1.15 - 1.33 MMOL/L 02/11/2025 12:15 PM CDT [facility] 02/11/2025 11:5 6 AM CDT us Chidi Umanzor MD LABORATORY Final Result Performing Organization Address City/[facility]/ZIP Co de Phone Number [facility] [address] [place] [address], [place] [phone] * LDH BODY FLUID (02/08/2025 4:09 PM CDT) LDH (FLUID) 119 UNITS/L 02/08/2025 4:45 PM CDT [facility] Comment:REFERENCE RANGE NOT ESTABLISHED FOR THIS BODY FLUID. SOURCE (FLUID) PERITONEAL FLUID 02/08/2025 4:09 PM CDT [facility] PERITONEAL FLUID / Unknown 02/08/2025 4:09 PM CDT us Juanpablo Herman MD BODY FLUIDS AND STOOLS ORDER BAKARI Final Result Performing Organization Address [facility] Co de Phone Number [facility] [address] [place] [address], [place] [phone] * AMYLASE FLUID (02/08/2025 4:09 PM CDT) AMYLASE (BODY FLUID) 20 UNITS/L 02/08/2025 4:45 PM CDT [facility] Comment:REFERENCE RANGE NOT ESTABLISHED FOR THIS BODY FLUID. SOURCE (FLUID) PERITONEAL FLUID 02/08/2025 4:09 PM CDT [facility] PERITONEAL FLUID / Unknown 02/08/2025 4:09 PM CDT us Juanpablo Herman MD BODY FLUIDS AND STOOLS ORDER BAKARI Final Result Performing Organization Address City/[facility]/ZIP Co de Phone Number [facility] [address] [place] [address], [place] [phone] * PROTEIN TOTAL FLUID (02/08/2025 4:09 PM CDT) PROTEIN (FLUID) 3.8 G/DL 4:45 PM CDT [facility] Comment:REFERENCE RANGE NOT ESTABLISHED FOR THIS BODY FLUID. SOURCE (FLUID) PERITONEAL FLUID 02/08/2025 4:09 PM CDT [facility] PERITONEAL FLUID / Unknown 02/08/2025 4:09 PM CDT us Juanpablo Herman MD BODY FLUIDS AND STOOLS ORDER BAKARI Final Result [facility] [address] [place] [address], [place] [phone] * CELL COUNT W/ DIFF BODY FLUID (02/08/2025 4:09 PM CDT) SOURCE (FLUID) PERITONEAL FLUID 02/08/2025 5:20 PM CDT [facility] WBC (FLUID) 0.261 x10'3/uL 02/08/2025 5:20 PM CDT [facility] Comment:REFERENCE RANGE NOT ESTABLISHED RBC (FLUID) 0.008 x10'6/uL 02/08/2025 5:20 PM CDT [facility] Comment:REFERENCE RANGE NOT ESTABLISHED DIFFERENTIAL MANUAL DIFFERENTIAL PERFORMED ON CONCENTRATED CYTOSPIN 02/08/2025 4:09 PM CDT [facility] CELLS COUNTED 100 No COUNTED 02/08/2025 5:53 PM CDT [facility] SEGS (FLUID) 47 % 02/08/2025 5:49 PM CDT [facility] LYMPHS (FLUID) 41 % 02/08/2025 5:49 PM CDT [facility] OTHER MONONUCLEAR CELLS (FLD) 12 % 02/08/2025 5:49 PM CDT [facility] PERITONEAL FLUID / Unknown 02/08/2025 4:09 PM CDT us Juanpabol Herman MD BODY FLUIDS AND STOOLS ORDER BAKARI Final Result [facility] [address] [place] [address], [place] [phone] * ALBUMIN BODY FLUID (02/08/2025 4:09 PM CDT) ALBUMIN (FLUID) 1.8 G/DL 4:45 PM CDT [facility] Comment:REFERENCE RANGE NOT ESTABLISHED FOR THIS BODY FLUID. SOURCE (FLUID) PERITONEAL FLUID 02/08/2025 4:09 PM CDT [facility] PERITONEAL FLUID / Unknown 02/08/2025 4:09 PM CDT us Juanpablo Herman MD BODY FLUIDS AND STOOLS ORDER BAKARI Final Result Performing Organization Address [facility] Co de Phone Number [facility] [address] [place] [address], [place] [phone] * GLUCOSE, BODY FLUID (02/08/2025 4:09 PM CDT) GLUCOSE FLUID 163 MG/DL 02/08/2025 4:45 PM CDT [facility] Comment:REFERENCE RANGE NOT ESTABLISHED FOR THIS BODY FLUID. SOURCE (FLUID) PERITONEAL FLUID 02/08/2025 4:09 PM CDT [facility] PERITONEAL FLUID / Unknown 02/08/2025 4:09 PM CDT us Juanpablo Herman MD BODY FLUIDS AND STOOLS ORDER BAKARI Final Result Performing Organization Address City/[facility]/ZIP Co de Phone Number [facility] [address] [place] [address], [place] [phone] * CYTOLOGY GENERIC (02/08/2025 12:00 AM CDT) CYTOLOGY OTHER [facility] Department of Laboratory Medicine [address] [place] [address] , extension [phone] Pathology Report Non-gynecologic Cytology Report Name: OBIE SIMS Specimen #: [id number] Age: 12 1955 (Age: 69) Location: [address] Sex: M Procedure Date: 02/08/2025 Hospital #: [id number] Date Received: 02/12/2025 Date Reported: 02/13/2025 Provider: JUANPABLO JOHNSON DO Source: PERITONEAL FLUID Clinical History: CHF FINAL DIAGNOSIS: Peritoneal fluid, paracentesis: -Satisfactory for evaluation. -Negative for malignant cells. Gross Description: SPECIMEN RECEIVED: 950 cc's of dark yellow fluid SLIDES PREPARED: 1 ThinPrep and cell block slide(s); all slides were microscopically examined by a pathologist. STAINS: Papanicolaou, H & E Initial cytologic screening, interpretation, and sign out were performed at [facility], [address] [place] [address]. Electronically Signed Out CONNER EDWARDS MD [facility] PERITONEAL FLUID / Unknown 02/08/2025 02/12/2025 7:58 AM CDT Comment:PERITONEAL FLUID us Juanpablo Herman MD PATHOLOGY/CYTOLOGY ORDERABLE S Final Result [facility] [address] [place] [address], [phone] * (ABNORMAL) CLINIC - [id number] MCT - Today (02/06/2025 3:14 PM CDT) Narrative [facility] - 02/06/2025 3:14 PM CDT Invasive Clinical Cardiac Electrophysiology AMBULATORY FEED MIXER REPORT Patient Name: Obie Sims : 1955 [facility]: [id number] Date of Testin01.10.2025 - 01.30.2025 Date of Report: 02.08.2025 Type of Cardiac Ambulatory Monitor: Mobile Cardiac Telemetry Ordering Provider: DIAMOND CAN MD Indication: Atrial fibrillation FINDINGS: The patient underwent cardiac monitoring for a total of 12 days, 21 hours and 44 minutes. Baseline Rhythm * The baseline rhythm was Sinus Rhythm with heart rates ranged between 40 and 118 beats per minute, with average rate of 77 beats per minute. A-V Conduction * No Second Degree AV Block Type II. * No Third Degree AV Block. * No Pauses. Supraventricular Arrhythmia * There were 51,602 Supraventricular Ectopic beats with a burden of 4%. * 3 Supraventricular Tachycardia events - the longest episode was 13.0s on 01/13 02:56, and the fastest episode was 105 BPM on 01/12 11:56; these findings were consistent with asymptomatic, non-sustained atrial tachycardia. Ventricular Arrhythmia * There were 20,265 Ventricular Ectopic beats with a burden of 1%. * 8 Ventricular Tachycardia events - the longest episode was 2.4s on 01/21 14:50, and the fastest episode was 144 BPM on 01/12 07:37. Atrial Fibrillation * Atrial Fibrillation - the longest episode was 12m 00.0s on 01/22 16:04, the fastest episode was 79 BPM on 01/22 16:04, and the slowest episode was 75 BPM on 01/19 07:10. Patient Triggered Events * No patient triggered events, and no symptoms. SUMMARY: Sinus node function was normal. A-V conduction was normal. Paroxysmal atrial fibrillation with burden <1% (100% rate controlled) No other significant abnormalities were noted. Diamond Can MD. MS. Invasive Clinical Cardiac Electrophysiology Department of Cardiovascular Medicine Office: [phone] us Diamond Can MD CV VASCULAR ORDERABLES Nicole l [facility] * (ABNORMAL) D-DIMER, QUANTITATIVE (02/06/2025 3:03 PM CDT) D-DIMER 1,996(H) 0 - 500 ng{FEU}/mL 02/06/2025 3:35 PM CDT [facility] EXCLUSION STATEMENT 02/06/2025 3:35 PM CDT [facility] Comment: D-Dimer values less than or equal to 500 ng/mL FEU have a negative predictive value of >95% for exclusion of deep vein thrombosis and pulmonary embolism. In patients over 50 (who tend to have higher normal baseline D-Dimer values), recent studies suggest age-adjusted D-Dimer cutoff values (calculated as: age [years] x 10 ng/mL) result in equivalent outcomes and no additional false negative findings. 02/06/2025 3:03 PM CDT us Alla Rodriguez NP LABORATORY Final Result [facility] [address] [place] [address], [id number] * XR CHEST PORTABLE (01/25/2025 3:04 PM CDT) Only the most recent of3 resultswithin the time period is included. Anatomical Region Laterality Modality Chest Radiographic Stephie ging 01/25/2025 3:06 PM CDT Impressions 01/25/2025 3:08 PM CDT IMPRESSION: Cardiac enlargement with borderline central vascular congestion and probable small pleural effusions. Advanced arthritis both shoulders. Ordered By: LAWRENCE KONG Interpreted By: Cirilo Kenney MD, 01/25/2025 3:06 PM Narrative 01/25/2025 3:08 PM CDT [address] [place] [address] 01/25/2025, 1452 hours. HISTORY: CHF. EXAM: Portable AP chest. Correlation to study 12/29/2024. FINDINGS: Operative changes of the apparent previous aortic valve replacement with median sternotomy approximated by wire sutures. Buttressing plate for fixation anteriorly lower cervical spine. The heart is enlarged. Prominent central pulmonary vessels without gross congestive failure. Blurring of the diaphragms which may indicate tiny pleural effusion. No mass or consolidating infiltrate. No pneumothorax. Slight widening superior mediastinum suggesting ectasia the aorta and great vessels. Advanced arthritic changes both shoulders. Procedure Note Cirilo Kenney MD - 01/25/2025 [facility] [address] [facility] [place] [address] 01/25/2025, 1452 hours. HISTORY: CHF. EXAM: Portable AP chest. Correlation to study 12/29/2024. FINDINGS: Operative changes of the apparent previous aortic valvereplacement with median sternotomy approximated by wire sutures.Buttressing plate for fixation anteriorly lower cervical spine. The heart is enlarged. Prominent central pulmonary vessels without grosscongestive failure. Blurring of the diaphragms which may indicate tinypleural effusion. No mass or consolidating infiltrate. No pneumothorax.Slight widening superior mediastinum suggesting ectasia the aorta andgreat vessels. Advanced arthritic changes both shoulders. IMPRESSION: Cardiac enlargement with borderline central vascular congestion andprobable small pleural effusions. Advanced arthritis both shoulders. Ordered By: LAWRENCE KONG Interpreted By: Cirilo Kenney MD, 01/25/2025 3:06 PM us Lawrence Kong MD GENERAL IMAGING Final Resul t * CT ABD+PEL WO CON (01/25/2025 2:57 PM CDT) Anatomical Region Laterality Modality Abdomen Computed Tomogra phy 01/25/2025 3:09 PM CDT Impressions 01/25/2025 3:46 PM CDT IMPRESSION: Cholelithiasis. Ascites. 4.2 cm masslike enlargement right adrenal gland similar to study 12/26/2024. Small amount of intra-abdominal fat herniation. Umbilical region anterior abdominal wall. Cardiac enlargement. Findings of previous aortic valve replacement. Small right pleural effusion. Left renal cortical cysts. Ordered By: LAWRENCE KONG Interpreted By: Cirilo Kenney MD, 01/25/2025 3:09 PM Narrative 01/25/2025 3:46 PM CDT [place] [id number] [facility] [place] [address] 01/25/2025, 1453 hours. HISTORY: CHF. Abdominal distention. Recent urinary retention with catheter placement yesterday. Hematuria. EXAM: CT abdomen and pelvis without contrast. CT imaging was performed without contrast with images submitted for review in the axial, the coronal and sagittal planes. A dose lowering technique was used for this procedure, which may include, but is not limited to, dose reduction technique, automated exposure control, the use of iterative reconstruction, and ALARA (As Low As Reasonably Achievable) / Image Gently techniques. Correlation to study 12/26/2024. FINDINGS: Operative changes of prior aortic valve replacement with median sternotomy approximated by wire sutures. The heart is enlarged. No pericardial effusion. Small right pleural effusion. Tiny left pleural effusion. No mass or consolidating infiltrate in either lower lung. Calcified granuloma in the right posterior pulmonary gutter. Ascites with fluid between the liver and right diaphragm and between the spleen and left diaphragm. No mass or enlargement of the liver. No nodularity of the surface of the liver. Cholelithiasis. No gallbladder wall thickening. No pericholecystic fluid collection. No bile duct dilatation. The spleen is prominent but not grossly enlarged. No mass or enlargement of the pancreas. No dilatation of the pancreatic duct or bile ducts. 4.2 cm mass enlargement of the right adrenal gland with small focal area of hypodensity in the right adrenal gland which suggest some focal fat deposition. The gland is similar in size and appearance compared to CT imaging 12/26/2024. Punctate calcification posterior surface lower pole right kidney. 5.3 cm cortical cyst anterior lower pole left kidney. Small cortical cyst posterior upper pole left kidney. No solid renal mass. No hydronephrosis. No retroperitoneal mass or adenopathy. No ureterectasis. Balloon anchor fully catheter present in the urinary bladder collapsing the urinary bladder. No definite bladder diverticula. I do not identify the appendix. No pericecal inflammatory change. In the pelvis, ascites is present. No definite intrapelvic mass or adenopathy. Previous left hip arthroplasty. Arthritic changes right hip. Wispy thickening of interstitial tissues in subcutaneous fat about the abdomen and pelvis which may indicate some interstitial tissue edema. Narrowing of the lumbosacral disc. Minimal anterior wedge configuration L4 vertebra. Facet arthritis lumbar spine. Small amount of intra-abdominal fat herniation. Umbilical region anterior abdominal wall. Procedure Note Cirilo Kenney MD - 01/25/2025 [facility] [address] [facility] [place] [address] 01/25/2025, 1453 hours. HISTORY: CHF. Abdominal distention. Recent urinary retention with catheterplacement yesterday. Hematuria. EXAM: CT abdomen and pelvis without contrast. CT imaging was performed without contrast with images submitted for reviewin the axial, the coronal and sagittal planes. A dose lowering technique was used for this procedure, which may include,but is not limited to, dose reduction technique, automated exposurecontrol, the use of iterative reconstruction, and ALARA (As Low AsReasonably Achievable) / Image Gently techniques. Correlation to study 12/26/2024. FINDINGS: Operative changes of prior aortic valve replacement with mediansternotomy approximated by wire sutures. The heart is enlarged. Nopericardial effusion. Small right pleural effusion. Tiny left pleuraleffusion. No mass or consolidating infiltrate in either lower lung.Calcified granuloma in the right posterior pulmonary gutter. Ascites with fluid between the liver and right diaphragm and between thespleen and left diaphragm. No mass or enlargement of the liver. Nonodularity of the surface of the liver. Cholelithiasis. No gallbladderwall thickening. No pericholecystic fluid collection. No bile ductdilatation. The spleen is prominent but not grossly enlarged. No mass orenlargement of the pancreas. No dilatation of the pancreatic duct or bileducts. 4.2 cm mass enlargement of the right adrenal gland with small focal areaof hypodensity in the right adrenal gland which suggest some focal fatdeposition. The gland is similar in size and appearance compared to CTimaging 12/26/2024. Punctate calcification posterior surface lower poleright kidney. 5.3 cm cortical cyst anterior lower pole left kidney. Smallcortical cyst posterior upper pole left kidney. No solid renal mass. Nohydronephrosis. No retroperitoneal mass or adenopathy. No ureterectasis.Balloon anchor fully catheter present in the urinary bladder collapsingthe urinary bladder. No definite bladder diverticula. I do not identify the appendix. No pericecal inflammatory change. In thepelvis, ascites is present. No definite intrapelvic mass or adenopathy.Previous left hip arthroplasty. Arthritic changes right hip. Wispythickening of interstitial tissues in subcutaneous fat about the abdomenand pelvis which may indicate some interstitial tissue edema. Narrowing ofthe lumbosacral disc. Minimal anterior wedge configuration L4 vertebra.Facet arthritis lumbar spine. Small amount of intra-abdominal fatherniation. Umbilical region anterior abdominal wall. IMPRESSION: Cholelithiasis. Ascites. 4.2 cm masslike enlargement right adrenal glandsimilar to study 12/26/2024. Small amount of intra-abdominal fat herniation.Umbilical region anterior abdominal wall. Cardiac enlargement. Findings ofprevious aortic valve replacement. Small right pleural effusion. Leftrenal cortical cysts. Ordered By: LAWRENCE KONG Interpreted By: Cirilo Kenney MD, 01/25/2025 3:09 PM Lawrence Kong MD CT Final Resul t * CULTURE, BACTERIA, BLOOD (01/25/2025 2:41 PM CDT) Only the most recent of2 resultswithin the time period is included. SPEC DESCRIPTION BLOOD 01/25/2025 2:17 PM CDT [facility] SPECIAL REQUESTS NO SPECIAL REQUEST 01/25/2025 2:17 PM CDT [facility] CULTURE RESULT NO GROWTH 5 DAYS 01/30/2025 6:34 PM CDT [facility] BLOOD SPECIMEN OBTAINED FOR BLOOD CULTURE / Unknown 01/25/2025 2:41 PM CDT 01/25/2025 2:42 PM CDT Lawrence Kong MD MICROBIOLOGY - [facility]AL [facility] Final Result [facility] [address] [place] [address], [place] [phone] [id number] [facility] Counts include 234 beds at the [facility] [place] [address], [place] [phone] * USE TRANSESOPHAGEAL ECHO (01/08/2025 9:51 AM CDT) Anatomical Region Laterality Modality Cardiac Echocardiogram 01/08/2025 8:27 AM CDT Narrative 01/08/2025 9:31 PM CDT Transesophageal Echocardiography Report Pat.Name: OBIE SIMS Pat.ID: [id number] .Date: 01/08/2025 Refer: [id number] HALEIGH Monique EWDPROV EWDPROV Exam Time: 8:27:00 AM Study Type:TRANSESOPHAGEAL ECHO (NEMO) Height: 26 in Age: 11 1955,69Y Sex: M BP: 132/74 HR: 70 bpm Sonogrphr: Easton Lima RDCS, RVT Pat. Stat.:Inpatient CPT - 4: [id number] Reason for Study:Atrial fibrillation / flutter Procedures: 2D, 3 Dimensional imaging with full Doppler and color interigation, M-mode, Doppler, Color Flow, Transesophageal Race: W ++++++++++++++++++++++++++++++++++++ SUMMARY: ++++++++++++++++++++++++++++++++++++ The left ventricular systolic function is lower limits of normal. Left atrial appendage shows no evidence of thrombus. Mild to moderate mitral regurgitation. Aortic valve prosthesis with normal function. ++++++++++++++++++++++++++++++++++++ FINDINGS: ++++++++++++++++++++++++++++++++++++ NEMO: The patient was [...] complications. LV: The left ventricular size is mildly enlarged. The left ventricular systolic function is lower limits of normal. Estimated left ventricular ejection fraction is 50-55%. RV: The right ventricular size is mildly enlarged. Right ventricular systolic function is normal. LA: The left atrial size is moderately enlarged. Left atrial appendage shows no evidence of thrombus. The left atrial appendage has moderate spontaneous echo contrast noted. RA: Right atrial size is mildly enlarged. ANYA: No evidence of pericardial effusion. AO: Normal aortic root. PA: Unable to reliably quantitate pulmonary systolic pressure. AV: Aortic valve prosthesis with normal function. MV: Structurally normal mitral valve. Mild to moderate mitral regurgitation. No evidence of mitral stenosis. PV: The pulmonic valve is normal There is trace pulmonic regurgitation TV: The tricuspid valve appears structurally normal. There is trace tricuspid regurgitation. ++++++++++++++++++++++++++++++++++++ NEMO: ++++++++++++++++++++++++++++++++++++ Meds: Benzocaine spray was used with 1 sprays. Midazolam/Versed 2 mg IV, Fentanyl 50 mcg IV Comments: 91 ++++++++++++++++++++++++++++++++++++ MEASUREMENTS: ++++++++++++++++++++++++++++++++++++ 2D Aorta Ao Asc 2.7 cm (2.1-3.4)+ LVOT LVOT 2.04 cm <Electronic Signature> 01/08/2025 09:31 PM Ronni Sanchez M.D. Procedure Note Ronni Sanchez MD - 01/08/2025 Transesophageal Echocardiography Report Pat.Name: OBIE SIMS.ID: [id number] .Date: 01/08/2025 : [id number] HALEIGH DON Eneida EWDPROV EWDPROV Exam Time: 8:27:00 AM Study Type:TRANSESOPHAGEAL ECHO (NEMO) Height: 26 in Age: 12 1955,69Y Sex: M BP: 132/74 HR: 70 bpm Sonogrphr: Easton Lima RDCS, RVT Pat. Stat.:Inpatient CPT - 4: [id number] Reason for Study:Atrial fibrillation / flutter Procedures: 2D, 3 Dimensional imaging with full Doppler and color interigation, M-mode, Doppler, Color Flow, Transesophageal Race: W ++++++++++++++++++++++++++++++++++++ SUMMARY: ++++++++++++++++++++++++++++++++++++ The left ventricular systolic function is lower limits of normal. Left atrial appendage shows no evidence of thrombus. Mild to moderate mitral regurgitation. Aortic valve prosthesis with normal function. ++++++++++++++++++++++++++++++++++++ FINDINGS: ++++++++++++++++++++++++++++++++++++ NEMO: The patient was [...] complications. LV: The left ventricular size is mildly enlarged. The left ventricular systolic function is lower limits of normal. Estimated left ventricular ejection fraction is 50-55%. RV: The right ventricular size is mildly enlarged. Right ventricular systolic function is normal. LA: The left atrial size is moderately enlarged. Left atrial appendage shows no evidence of thrombus. The left atrial appendage has moderate spontaneous echo contrast noted. RA: Right atrial size is mildly enlarged. ANYA: No evidence of pericardial effusion. AO: Normal aortic root. PA: Unable to reliably quantitate pulmonary systolic pressure. AV: Aortic valve prosthesis with normal function. MV: Structurally normal mitral valve. Mild to moderate mitral regurgitation. No evidence of mitral stenosis. PV: The pulmonic valve is normal There is trace pulmonic regurgitation TV: The tricuspid valve appears structurally normal. There is trace tricuspid regurgitation. ++++++++++++++++++++++++++++++++++++ NEMO: ++++++++++++++++++++++++++++++++++++ Meds: Benzocaine spray was used with 1 sprays. Midazolam/Versed 2 mg IV, Fentanyl 50 mcg IV Comments: 91 ++++++++++++++++++++++++++++++++++++ MEASUREMENTS: ++++++++++++++++++++++++++++++++++++ 2D Aorta Ao Asc 2.7 cm (2.1-3.4)+ LVOT LVOT 2.04 cm <Electronic Signature> 01/08/2025 09:31 PM Ronni Sanchez M.D. us Diamond Can MD ECHO Final Resul t * NEMO Cardiac (01/08/2025 7:55 AM CDT) Narrative Procedure Note Ronni Sanchez MD - 01/08/2025 7:55 AM CDT Brief NEMO Procedure Note: Procedure: Transesophageal echocardiography 2. Moderate sedation Indication: afib Patient was brought to the NEMO suite in the usual fasting state. Informedconsent is obtained. Moderate sedation was performed, initially lidocaine oral spray was usedand local anesthesia of the oropharynx was performed. I performedmoderate sedation using Versed 3mg and fentanyl 75mcg. I supervised anddirected Ms.Ms Ebony Azevedo who assisted in monitoring patient's levelof consciousness and physiological status throughout the procedure.Patient was under continuous hemodynamic monitoring. The NEMO probe passed easily, images were obtained in multiple views. Preliminary findings: Left ventricle systolic function is normal Spontaneous echo contrast in the left atrium/appendage No obvious thrombus is noted Bioprosthetic teletype mechanic valve-appears to be functioning normally Full report to follow Specimen(s) Removed: None Anesthesia:Moderate sedation and local. Patient tolerated the procedure well, no immediate hemodynamiccomplications were noted. Impression: No echocardiographic evidence of thrombus Recommendations: 1. Proceed to cardioversion per EP Continue current management us Ronni Sanchez MD SD ANESTHESIA Final Result * (ABNORMAL) RENAL FUNCTION PANEL (01/06/2025 1:01 PM CDT) SODIUM S/P/B 136 136 - 145 MMOL/L 01/06/2025 1:40 PM CDT [facility] POTASSIUM S/P/B 4.4 3.5 - 5.1 MMOL/L 01/06/2025 1:40 PM CDT [facility] CHLORIDE S/P/B 102 97 - 115 MMOL/L 01/06/2025 1:40 PM CDT [facility] CO2 27.8 21.0 - 32.0 MMOL/L 01/06/2025 1:40 PM CDT [facility] GLUCOSE 166(H) 74 - 106 MG/DL 01/06/2025 1:40 PM CDT [facility] BUN 46(H) 7 - 18 MG/DL 01/06/2025 1:40 PM CDT [facility] CREATININE S/P/B 2.02(H) 0.70 - 1.30 MG/DL 01/06/2025 1:40 PM CDT [facility] CALCIUM S/P/B 9.4 8.5 - 10.1 MG/DL 01/06/2025 1:40 PM CDT [facility] ALBUMIN S/P/B 3.0(L) 3.4 - 5.0 G/DL 01/06/2025 1:40 PM CDT [facility] PHOSPHORUS 3.8 2.5 - 4.9 MG/DL 01/06/2025 1:40 PM CDT [facility] ANION GAP 6.2 2.0 - 10.0 MMOL/L 01/06/2025 1:40 PM CDT [facility] OSMOLALITY (CALC) 298 MOSM/KG 025 1:40 PM CDT [facility] Comment:REFERENCE RANGE NOT ESTABLISHED GFR ESTIMATE 35(L) >90 ML/MIN/1. 73 M2 01/06/2025 1:40 PM CDT [facility] GFR NOTES GFR REFERENCE S: 01/06/2025 1:40 PM CDT [facility] Comment: THE ESTIMATED GFR IS [...] ml/min/1.73 m2 G5,KIDNEY FAILURE: <15 ml/min/1.73 m2 01/06/2025 1:01 PM CDT Trace Gonsales MD LABORATORY Final Result [facility] [address] [place] [address], [phone] * US RETROPERITONEAL LTD (01/05/2025 7:33 PM CDT) Anatomical Region Laterality Modality Renal Ultrasound 01/06/2025 1:35 AM CDT Impressions 01/06/2025 1:38 AM CDT IMPRESSION: 1. Unremarkable sonographic appearance of the kidneys without evidence to suggest hydronephrosis or echogenic calculus. 2. Distention of the urinary bladder, with a volume of approximately 745 cc, despite the presence of a urinary bladder catheter. Referred By: DON RICARDO Interpreted By: Adan De La Rosa DO, 01/06/2025 1:35 AM Narrative 01/06/2025 1:38 AM CDT [facility] [address] [place], [place] [address] EXAMINATION: US RETROPERITONEAL LTD EXAM DATE: 01/05/2025 5:59 PM CLINICAL HISTORY: Acute kidney injury on chronic kidney disease. COMPARISON: CT abdomen and pelvis 12/26/2024 and retroperitoneal ultrasound 08/31/2024. TECHNIQUE: Sonographic evaluation of the retroperitoneum, including both kidneys and urinary bladder, was performed utilizing grayscale and color Doppler technique. FINDINGS: RIGHT KIDNEY: The right kidney measures approximately 10.5 x 4.5 x 6.6 cm and demonstrates appropriate echogenicity and color Doppler flow. No sonographic evidence is seen to suggest hydronephrosis, echogenic calculus, cyst, or solid renal mass. LEFT KIDNEY: The left kidney measures approximately 11.4 x 6.1 x 6.4 cm and demonstrates appropriate echogenicity and color Doppler flow. No sonographic evidence is seen to suggest hydronephrosis, echogenic calculus, cyst, or solid renal mass. URINARY BLADDER: There is no urinary bladder wall thickening. Bilateral ureteral jets are visualized. The urinary bladder is distended, with a volume of approximately 745 cc. A urinary bladder catheter is present. Procedure Note Adan De La Rosa DO - 01/06/2025 [facility] [address] [place], [place] [address] EXAMINATION: US RETROPERITONEAL LTD EXAM DATE: 01/05/2025 5:59 PM CLINICAL HISTORY: Acute kidney injury on chronic kidney disease. COMPARISON: CT abdomen and pelvis 12/26/2024 and retroperitoneal ultrasound08/31/2024. TECHNIQUE: Sonographic evaluation of the retroperitoneum, including both kidneys andurinary bladder, was performed utilizing grayscale and color Dopplertechnique. FINDINGS: RIGHT KIDNEY: The right kidney measures approximately 10.5 x 4.5 x 6.6 cm anddemonstrates appropriate echogenicity and color Doppler flow. Nosonographic evidence is seen to suggest hydronephrosis, echogeniccalculus, cyst, or solid renal mass. LEFT KIDNEY: The left kidney measures approximately 11.4 x 6.1 x 6.4 cm anddemonstrates appropriate echogenicity and color Doppler flow. Nosonographic evidence is seen to suggest hydronephrosis, echogeniccalculus, cyst, or solid renal mass. URINARY BLADDER: There is no urinary bladder wall thickening. Bilateral ureteral jets arevisualized. The urinary bladder is distended, with a volume ofapproximately 745 cc. A urinary bladder catheter is present. IMPRESSION: 1. Unremarkable sonographic appearance of the kidneys without evidence tosuggest hydronephrosis or echogenic calculus. 2. Distention of the urinary bladder, with a volume of approximately 745cc, despite the presence of a urinary bladder catheter. Referred By: DON RICARDO Interpreted By: Adan De La Rosa DO, 01/06/2025 1:35 AM Trace Gonsales MD ULTRASOUND Final Result * NM PHARM NUC STRESS TEST 1 DAY W TRACING (01/04/2025 11:26 AM CDT) Anatomical Region Laterality Modality Cardiac Nuclear Medicine 01/04/2025 10:4 7 AM CDT Narrative 01/05/2025 7:34 AM CDT MYOCARDIAL PERFUSION SCAN Pat.Name: OBIE SIMS Dariana.ID: [id number] .Date: 01/04/2025 Refer.MD: BRIT GONZÁLES Exam Time: 10:47:00 AM Study Type:NC Ht Muscle Image SPECT Multi Nuclear Height: 66 in Weight: 222 lb BSA: 2.09 m2 Age: 12 1955,69Y Sex: M Sonogrphr: PARIS Sims Pat. 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 Race: W Risk Factors:Abnormal ankle brachial index, Acute on chronic heart failure, Anxiety, Aortic valve stenosis, Arthritis, Asthma, Bilateral carotid disease, Claudication, COPD, DMII, HLD, HTN, LV dysfunction, Chronic leg ulcers, RLS, Stroke, EDema, Appendectomy, Aortic (Bioprosthetic valve replacement ( 1999, 2013), NEMO/ CV 2015, A-fib ablation 2015, Cardioverion external (2011), Left hip arthroplasty, Knee arthroplasty, Rotator cuff repair, Medications:Albuterol, Allopurinol, Aspirin, Bumex, Atorvastatin, Ceftriaxone, Docusate Na, Folic acid, Hydrocodone, Lantus, Jardiance, Metoprolol, Nystatin, O2, Pantoprazole, Lyrica, Ozempic, Sertraline, Spironolactone, Trazodoen, Trelegy Ellipta, Coumadin, Lispro ++++++++++++++++++++++++++++++++++++ SUMMARY: ++++++++++++++++++++++++++++++++++++ Abnormal Perfusion Study. No evidence of ischemia. There is evidence of a small area of mild intensity fixed defect consistent with infarction or attenuation in the apical to mid inferior wall. There is evidence of a small area of mild intensity fixed defect consistent with infarction or attenuation in the mid anterolateral wall. There is post stress moderate hypokinesis in the basal anteroseptal, basal inferoseptal, basal inferior, mid anteroseptal, mid inferoseptal, mid inferior, apical septal, apical inferior wall(s). Normal wall motion in all other knox. Left ventricular EF is 35 %. The study quality is good. ++++++++++++++++++++++++++++++++++++ FINDINGS: ++++++++++++++++++++++++++++++++++++ Stress Findings: Negative electrocardiographic portion of regadenoson stress test. The patient had no complaints of chest pain. Impr: Abnormal Perfusion Study. There is evidence of a small area of mild intensity fixed defect consistent with infarction or attenuation in the apical to mid inferior wall. There is evidence of a small area of mild intensity fixed defect consistent with infarction or attenuation in the mid anterolateral wall. Transient Ischemic Dilatation: The TID is 1.16. LV Perfusion Results: There is a mild mid inferior, mid anterolateral, apical inferior perfusion defect during stress and rest.There is a normal apical lateral perfusion during stress which worsens with rest. Gated SPECT Results: Left ventricular EF is 35 %. There is post stress moderate hypokinesis in the basal anteroseptal, basal inferoseptal, basal inferior, mid anteroseptal, mid inferoseptal, mid inferior, apical septal, apical inferior wall(s). Normal wall motion in all other knox. Study Quality/Artifacts: The study quality is good. ++++++++++++++++++++++++++++++++++++ STRESS: ++++++++++++++++++++++++++++++++++++ Baseline Vital Signs: Baseline Rhythm: Atrial fibrillation HR: 89 bmp Rest BP: 131/90 Regadenoson Peak Dose: 0.4 mg Duration: 06:00 min:sec Stress Test Results: Target HR: 150 bmp Symptoms and Complications: Arrhythmias: PVCs Reason for Stopping Test: Protocol completed, Shortness of breath Stress Induced Symptoms: Shortness of breath Complications: None ECG Findings: Minimal S-T change is not diagnostic of ischemia <Electronic Signature> 01/05/2025 07:34 AM Brit Gonzáles M.D. Procedure Note Brit Gonzáles MD - 01/05/2025 MYOCARDIAL PERFUSION SCAN Pat.Name: OBIE SIMS.ID: [id number] .Date: 01/04/2025 Refer.MD: BRIT GONZÁLES Exam Time: 10:47:00 AM Study Type:NC Ht Muscle Image SPECT Multi Nuclear Height: 66 in Weight: 222 lb BSA: 2.09 m2 Age: 11 1955,69Y Sex: M Sonogrphr: PARIS Sims Pat. 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 Race: W Risk Factors:Abnormal ankle brachial index, Acute on chronic heart failure, Anxiety, Aortic valve stenosis, Arthritis, Asthma, Bilateral carotid disease, Claudication, COPD, DMII, HLD, HTN, LV dysfunction, Chronic leg ulcers, RLS, Stroke, EDema, Appendectomy, Aortic (Bioprosthetic valve replacement ( 1999, 2013), NEMO/ CV 2015, A-fib ablation 2015, Cardioverion external (2011), Left hip arthroplasty, Knee arthroplasty, Rotator cuff repair, Medications:Albuterol, Allopurinol, Aspirin, Bumex, Atorvastatin, Ceftriaxone, Docusate Na, Folic acid, Hydrocodone, Lantus, Jardiance, Metoprolol, Nystatin, O2, Pantoprazole, Lyrica, Ozempic, Sertraline, Spironolactone, Trazodoen, Trelegy Ellipta, Coumadin, Lispro ++++++++++++++++++++++++++++++++++++ SUMMARY: ++++++++++++++++++++++++++++++++++++ Abnormal Perfusion Study. No evidence of ischemia. There is evidence of a small area of mild intensity fixed defect consistent with infarction or attenuation in the apical to mid inferior wall. There is evidence of a small area of mild intensity fixed defect consistent with infarction or attenuation in the mid anterolateral wall. There is post stress moderate hypokinesis in the basal anteroseptal, basal inferoseptal, basal inferior, mid anteroseptal, mid inferoseptal, mid inferior, apical septal, apical inferior wall(s). Normal wall motion in all other knox. Left ventricular EF is 35 %. The study quality is good. ++++++++++++++++++++++++++++++++++++ FINDINGS: ++++++++++++++++++++++++++++++++++++ Stress Findings: Negative electrocardiographic portion of regadenoson stress test. The patient had no complaints of chest pain. Impr: Abnormal Perfusion Study. There is evidence of a small area of mild intensity fixed defect consistent with infarction or attenuation in the apical to mid inferior wall. There is evidence of a small area of mild intensity fixed defect consistent with infarction or attenuation in the mid anterolateral wall. Transient Ischemic Dilatation: The TID is 1.16. LV Perfusion Results: There is a mild mid inferior, mid anterolateral, apical inferior perfusion defect during stress and rest.There is a normal apical lateral perfusion during stress which worsens with rest. Gated SPECT Results: Left ventricular EF is 35 %. There is post stress moderate hypokinesis in the basal anteroseptal, basal inferoseptal, basal inferior, mid anteroseptal, mid inferoseptal, mid inferior, apical septal, apical inferior wall(s). Normal wall motion in all other knox. Study Quality/Artifacts: The study quality is good. ++++++++++++++++++++++++++++++++++++ STRESS: ++++++++++++++++++++++++++++++++++++ Baseline Vital Signs: Baseline Rhythm: Atrial fibrillation HR: 89 bmp Rest BP: 131/90 Regadenoson Peak Dose: 0.4 mg Duration: 06:00 min:sec Stress Test Results: Target HR: 150 bmp Symptoms and Complications: Arrhythmias: PVCs Reason for Stopping Test: Protocol completed, Shortness of breath Stress Induced Symptoms: Shortness of breath Complications: None ECG Findings: Minimal S-T change is not diagnostic of ischemia <Electronic Signature> 01/05/2025 07:34 AM Brit Gonzáles M.D. us Brit Gonzáles MD [facility] Final Result * US TESTICULAR (01/02/2025 12:40 PM CDT) Anatomical Region Laterality Modality Pelvis Ultrasound 01/02/2025 1:16 PM CDT Impressions 01/02/2025 1:24 PM CDT IMPRESSION: 1. Within limitations of this exam, no sonographic evidence of testicular torsion or intratesticular mass. Patient unable tolerate portions of this exam. 2. Nonspecific peripheral right testicular calcifications. A follow-up testicular ultrasound is recommended when clinically feasible. 3. Nonspecific scrotal edema, likely related to volume overload. Ordered By: DANIKA SALCEDO Interpreted By: Elizabeth Oakes MD, 01/02/2025 1:16 PM Narrative 01/02/2025 1:24 PM CDT [facility] [address], [place] [address] Examination: US TESTICULAR Exam Date/Time: 01/02/2025 11:48 AM Clinical Indication: scrotal pain Comparison: CT abdomen and pelvis with contrast, 12/26/2024. Technique: Ultrasound examination of the right and left testicle and scrotum was performed to assess grayscale appearance, color doppler flow, and spectral waveform characteristics. Findings: Right testes: Normal in echogenicity, measuring 4.8 cm (L) X 2.7 cm (W) 2.1 cm (H) in dimension. Color flow and spectral analysis of the right testicle is normal. No right intratesticular mass is seen. Nonspecific peripheral right testicular calcifications. Right epididymis: Normal in echogenicity and color flow, measuring 0.7 cm (W) X 0.6 cm (H) in dimension. Right scrotum: No right hydrocele. No right varicocele is seen. Left testes: Normal in echogenicity, measuring 4.0 cm (L) X 2.8 cm (W) X 3.0 cm (H) in dimension. Color flow and spectral analysis of the left testicle is normal. No left intratesticular mass is seen. Left epididymis: Normal in echogenicity and color flow, measuring 0.9 cm (W) X 0.7 cm (H) in dimension. Left scrotum: No left hydrocele. No left varicocele is seen. No inguinal or scrotal hernia is seen. Nonspecific scrotal edema. Procedure Note Elizabeth Oakes MD - 01/02/2025 [facility] [address] [address] Examination: US TESTICULAR Exam Date/Time: 01/02/2025 11:48 AM Clinical Indication: scrotal pain Comparison: CT abdomen and pelvis with contrast, 12/26/2024. Technique: Ultrasound examination of the right and left testicle andscrotum was performed to assess grayscale appearance, color doppler flow,and spectral waveform characteristics. Findings: Right testes: Normal in echogenicity, measuring 4.8 cm (L) X 2.7 cm (W)2.1 cm (H) in dimension. Color flow and spectral analysis of the righttesticle is normal. No right intratesticular mass is seen. Nonspecificperipheral right testicular calcifications. Right epididymis: Normal in echogenicity and color flow, measuring 0.7 cm(W) X 0.6 cm (H) in dimension. Right scrotum: No right hydrocele. No right varicocele is seen. Left testes: Normal in echogenicity, measuring 4.0 cm (L) X 2.8 cm (W) X3.0 cm (H) in dimension. Color flow and spectral analysis of the lefttesticle is normal. No left intratesticular mass is seen. Left epididymis: Normal in echogenicity and color flow, measuring 0.9 cm(W) X 0.7 cm (H) in dimension. Left scrotum: No left hydrocele. No left varicocele is seen. No inguinal or scrotal hernia is seen. Nonspecific scrotal edema. IMPRESSION: 1. Within limitations of this exam, no sonographic evidence oftesticular torsion or intratesticular mass. Patient unable tolerateportions of this exam. 2. Nonspecific peripheral right testicular calcifications. A follow-uptesticular ultrasound is recommended when clinically feasible. 3. Nonspecific scrotal edema, likely related to volume overload. Ordered By: DANIKA SALCEDO Interpreted By: Elizabeth Oakes MD, 01/02/2025 1:16 PM us Danika Salcedo MD ULTRASOUND Final Res ult * USE ECHOCARDIOGRAM W CON (12/29/2024 11:01 AM CDT) Anatomical Region Laterality Modality NA Echocardiogram 12/29/2024 11:1 5 AM CDT Narrative 12/29/2024 6:41 PM CDT Echocardiography Report Pat.Name: OBIE SIMS Pat.ID: [id number] .Date: 12/29/2024 : [id number] HALEIGH DON Eneida EWDPROV EWDPROV Exam Time: 11:15:00 AM Study Type:ECHO WITH CARDIAC DOPPLER COMP Height: 66 in Weight: 225 lb BSA: 2.1 m2 Age: 11 1955,69Y Sex: M BP: 124/73 HR: 76 bpm Sonogrphr: Dane Sanchez [facility] Pat. Stat.:Inpatient Room: 642 CPT - 4: C8929 Reason for Study:CHF Procedures: 2D, M-mode, Doppler, Color Flow, Definity was used to enhance endocardial definition. Race: W ++++++++++++++++++++++++++++++++++++ SUMMARY: ++++++++++++++++++++++++++++++++++++ The left ventricular size is mildly enlarged. The calculated ejection fraction is 35.7%. The right ventricular size is moderately to severely enlarged. Right ventricular systolic function is severely depressed. Trivial pericardial effusion, without tamponade physiology. Inferior vena cava shows <50% collapse with respiration consistent with elevated right atrial pressure. The peak velocity across the bioposthetic aortic valve measures 3.06m/sec with a peak gradient of 37mmHg and a mean gradient of 20mmHg. The calculated aortic valve area is .91cm2. 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 Mild thickening of mitral valve leaflets. Mild tricuspid regurgitation. Right ventricular systolic pressure is 61 mmHg. ++++++++++++++++++++++++++++++++++++ FINDINGS: ++++++++++++++++++++++++++++++++++++ LV: The left ventricular size is mildly enlarged. The calculated ejection fraction is 35.7%. The septal E/e' is elevated at >15. The lateral E/e' is indeterminate at 9-11. RV: The right ventricular size is moderately to severely enlarged. Right ventricular systolic function is severely depressed. LA: The left atrial size is moderately enlarged. The left atrial volume is moderately increased (42-48 ml/M2). RA: Right atrial size is mildly enlarged. ANYA: Trivial pericardial effusion, without tamponade physiology. AO: The aortic root measures 3.12 cm. The proximal ascending aorta measures 3.49cm. PA: Estimated right atrial pressure of 15 mmHg. SVn: Inferior vena cava is moderately enlarged. Inferior vena cava shows <50% collapse with respiration consistent with elevated right atrial pressure. AV: The peak velocity across the bioposthetic aortic valve measures 3.06m/sec with a peak gradient of 37mmHg and a mean gradient of 20mmHg. The calculated aortic valve area is .91cm2. 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 MV: Structurally normal mitral valve. No evidence of significant mitral regurgitation. Mild thickening of mitral valve leaflets. PV: Structurally normal pulmonic valve. Trace pulmonic regurgitation. TV: Structurally normal tricuspid valve. Mild tricuspid regurgitation. Right ventricular systolic pressure is 61 mmHg. ++++++++++++++++++++++++++++++++++++ MEASUREMENTS: ++++++++++++++++++++++++++++++++++++ DOPPLER LVOT LVOTpkPG 3 mmHg LVOTmnPG 2 mmHg LVOTpkVel 88.6 cm/s (70-110) LVOT SV 57 ml LVOT TVI 14.1 cm AV Forward Flow AV TVI 61.9 cm AV pkPG 37 mmHg AV pkVel 306 cm/s (100-170)* Area (TVI) 0.91 cm2 (3-5)* AV mnVel 212 cm/s Area (Wilbert) 1.16 cm2 (3-5)* AV mnPG 20 mmHg MV Forward Flow MV DeTm 144 msec MV mnPG 3 mmHg MVA P1/2t 3.55 cm2 (4-6)* MV pkPG 7 mmHg MV P1/2t 62 msec (30-60)+* MV pkE 122 cm/s (60-130) PV Forward Flow PV TVI 15.1 cm PV mnVel 50.4 cm/s PV pkVel 73.3 cm/s (60-90) PV mnPG 1 mmHg PV pkPG 2 mmHg PV Regurg Flow PV pkVel 120 cm/s PV pkPG 6 mmHg RVOT RVOTpkV 50.3 cm/s RVOT TVI 9.04 cm TV Regurg Flow TV pkPG 42 mmHg TV pkVel 323 cm/s (30-70)+* Lat E' Lat e 7.38 cm/s Lat E/E' Lat E/e 16.5 Med E' Med e 3.44 cm/s Med E/E' Med E/e 35.5 Aortic Valve Aortic Valve Ar 0.43 Aortic Valve Ve 0.29 AV DI Value 0.2 EMILE (VTI) Index Value 0.43 LV Mass 2D Value 212 g LV Mass [id number] Value 101 g/m2 RA Volume Atrial Schaffer 5.91 cm Atrial Schaffer 19.2 cm2 Atrial Schaffer 51.9 ml Right Ventricle Right Ventricle 7.38 cm/s SV (LVOT) Index Value 27 ml 2D Left Ventricle LVIDd 5.01 cm (3.6-5.2) LV EF(Bi-Plane) 35.7 % (63-77)* LVIDs 4.58 cm (2.3-3.9)* LVPW LVPWd 1.22 cm Ventricular Septum IVSd 1.01 cm Left Atrium LA a-p 4.64 cm (2.8-3.4)* Aorta Ao Rtd 3.12 cm (zsc 0.5) Ao Asc 3.49 cm (zsc 3)* LVOT LVOT 2.26 cm Ratios IVS LA Biplane LAVol I BP 43 ml/m2 Right Ventricle Right Ventricle 5.38 cm Right Ventricle 4.25 cm Major Ardmore 9.31 cm MMODE TA Tricuspid Annul 1.91 cm <Electronic Signature> 12/29/2024 06:41 PM Brit Gonzáles M.D. Procedure Note Brit Gonzáles MD - 12/29/2024 Echocardiography Report Pat.Name: OBIE SIMS Pat.ID: [id number] .Date: 12/29/2024 : [id number] HALEIGH Monique EWDPROV EWDPROV Exam Time: 11:15:00 AM Study Type:ECHO WITH CARDIAC DOPPLER COMP Height: 66 in Weight: 225 lb BSA: 2.1 m2 Age: 12 1955,69Y Sex: M BP: 124/73 HR: 76 bpm Sonogrphr: Dane Sanchez [facility] Pat. Stat.:Inpatient Room: 2 CPT - 4: C8929 Reason for Study:CHF Procedures: 2D, M-mode, Doppler, Color Flow, Definity was used to enhance endocardial definition. Race: W ++++++++++++++++++++++++++++++++++++ SUMMARY: ++++++++++++++++++++++++++++++++++++ The left ventricular size is mildly enlarged. The calculated ejection fraction is 35.7%. The right ventricular size is moderately to severely enlarged. Right ventricular systolic function is severely depressed. Trivial pericardial effusion, without tamponade physiology. Inferior vena cava shows <50% collapse with respiration consistent with elevated right atrial pressure. The peak velocity across the bioposthetic aortic valve measures 3.06m/sec with a peak gradient of 37mmHg and a mean gradient of 20mmHg. The calculated aortic valve area is .91cm2. 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 Mild thickening of mitral valve leaflets. Mild tricuspid regurgitation. Right ventricular systolic pressure is 61 mmHg. ++++++++++++++++++++++++++++++++++++ FINDINGS: ++++++++++++++++++++++++++++++++++++ LV: The left ventricular size is mildly enlarged. The calculated ejection fraction is 35.7%. The septal E/e' is elevated at >15. The lateral E/e' is indeterminate at 9-11. RV: The right ventricular size is moderately to severely enlarged. Right ventricular systolic function is severely depressed. LA: The left atrial size is moderately enlarged. The left atrial volume is moderately increased (42-48 ml/M2). RA: Right atrial size is mildly enlarged. ANYA: Trivial pericardial effusion, without tamponade physiology. AO: The aortic root measures 3.12 cm. The proximal ascending aorta measures 3.49cm. PA: Estimated right atrial pressure of 15 mmHg. SVn: Inferior vena cava is moderately enlarged. Inferior vena cava shows <50% collapse with respiration consistent with elevated right atrial pressure. AV: The peak velocity across the bioposthetic aortic valve measures 3.06m/sec with a peak gradient of 37mmHg and a mean gradient of 20mmHg. The calculated aortic valve area is .91cm2. 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 MV: Structurally normal mitral valve. No evidence of significant mitral regurgitation. Mild thickening of mitral valve leaflets. PV: Structurally normal pulmonic valve. Trace pulmonic regurgitation. TV: Structurally normal tricuspid valve. Mild tricuspid regurgitation. Right ventricular systolic pressure is 61 mmHg. ++++++++++++++++++++++++++++++++++++ MEASUREMENTS: ++++++++++++++++++++++++++++++++++++ DOPPLER LVOT LVOTpkPG 3 mmHg LVOTmnPG 2 mmHg LVOTpkVel 88.6 cm/s (70-110) LVOT SV 57 ml LVOT TVI 14.1 cm AV Forward Flow AV TVI 61.9 cm AV pkPG 37 mmHg AV pkVel 306 cm/s (100-170)* Area (TVI) 0.91 cm2 (3-5)* AV mnVel 212 cm/s Area (Wilbert) 1.16 cm2 (3-5)* AV mnPG 20 mmHg MV Forward Flow MV DeTm 144 msec MV mnPG 3 mmHg MVA P1/2t 3.55 cm2 (4-6)* MV pkPG 7 mmHg MV P1/2t 62 msec (30-60)+* MV pkE 122 cm/s (60-130) PV Forward Flow PV TVI 15.1 cm PV mnVel 50.4 cm/s PV pkVel 73.3 cm/s (60-90) PV mnPG 1 mmHg PV pkPG 2 mmHg PV Regurg Flow PV pkVel 120 cm/s PV pkPG 6 mmHg RVOT RVOTpkV 50.3 cm/s RVOT TVI 9.04 cm TV Regurg Flow TV pkPG 42 mmHg TV pkVel 323 cm/s (30-70)+* Lat E' Lat e 7.38 cm/s Lat E/E' Lat E/e 16.5 Med E' Med e 3.44 cm/s Med E/E' Med E/e 35.5 Aortic Valve Aortic Valve Ar 0.43 Aortic Valve Ve 0.29 AV DI Value 0.2 EMILE (VTI) Index Value 0.43 LV Mass 2D Value 212 g LV Mass [id number] Value 101 g/m2 RA Volume Atrial Schaffer 5.91 cm Atrial Schaffer 19.2 cm2 Atrial Schaffer 51.9 ml Right Ventricle Right Ventricle 7.38 cm/s SV (LVOT) Index Value 27 ml 2D Left Ventricle LVIDd 5.01 cm (3.6-5.2) LV EF(Bi-Plane) 35.7 % (63-77)* LVIDs 4.58 cm (2.3-3.9)* LVPW LVPWd 1.22 cm Ventricular Septum IVSd 1.01 cm Left Atrium LA a-p 4.64 cm (2.8-3.4)* Aorta Ao Rtd 3.12 cm (zsc 0.5) Ao Asc 3.49 cm (zsc 3)* LVOT LVOT 2.26 cm Ratios IVS LA Biplane LAVol I BP 43 ml/m2 Right Ventricle Right Ventricle 5.38 cm Right Ventricle 4.25 cm Major Ardmore 9.31 cm MMODE TA Tricuspid Annul 1.91 cm <Electronic Signature> 12/29/2024 06:41 PM Brit Gonzáles M.D. Isma Valentin MD ECHO Final Result * HEPATITIS C ANTIBODY (12/24/2022 3:05 PM CDT) HEPATITIS C AB NON-REACTI VE NON-REACT ALEK 12/25/2022 6:28 PM CDT [facility] Comment: ANTIBODIES TO HCV NOT DETECTED. DOES NOT EXCLUDE THE POSSIBILITY OF EXPOSURE TO HCV. 12/24/2022 3:05 PM CDT Katina Beltran MD LABORATORY Final Resu lt Performing Organization Address [facility]/ZIP Co de Phone Number [facility] [address] [place] [address], [phone] * LIPID PANEL (02/01/2022 11:27 AM CDT) CHOLESTEROL 151 MG/DL 02/01/2022 12:29 PM CDT [facility] Comment:DESIRABLE: <200 TRIGLYCERIDES 119 MG/DL 02/01/2022 12:29 PM CDT [facility] Comment:<150 NORMAL HDL 73 >39 MG/DL 02/01/2022 12:29 PM CDT [facility] LDL (CALCULATED) 54 MG/DL 02/02/20 22 12:29 PM CDT [facility] Comment:<100 OPTIMAL VLDL CALCULATION 24 MG/DL 02/02/20 12:29 PM CDT [facility] Comment:REFERENCE RANGE NOT ESTABLISHED CHOL/HDL RATIO 2.1 02/01/2022 12:29 PM CDT [facility] Comment:REFERENCE RANGE NOT ESTABLISHED LDL/HDL 0.7 02/01/2022 12:29 PM CDT [facility] Comment:REFERENCE RANGE NOT ESTABLISHED NON HDL CHOLESTEROL 78 MG/DL 02/01/2022 12:29 PM CDT [facility] Comment:REFERENCE RANGE NOT ESTABLISHED 02/01/2022 11:2 7 AM CDT Segundo Navarrete MD LABORATORY Final Result Performing Organization Address [facility]/ZIP Co de Phone Number [facility] [address] [place] [address], [place] [phone] * Colonoscopy (01/27/2022 6:48 AM CDT) Kilo Navarro MD GI PROCEDURE ORDERABLES Final Result from Last 3 Months or Most Recently Relevant to Health Maintenance Insurance [place] [address] [place] [address] Advance Directives Documents on File Type Date Recorded Patient Ergonomic Specialist Expl anation Advance Directives and Living Will 09/22/2024 3:38 PM Advance Directives and Living Will 02/22/2020 1:54 PM 04/11/2012 POLST Advance Directives and Living Will 11/06/2017 POWER OF STONE PLANER FO R HEALTH CARE Advance Directives and Living Will 01/04/2017 POWER OF STONE PLANER FO R HEALTH CARE Advance Directives and Living Will 01/04/2017 SHORT FORM POWER OF STONE PLANER Advance Directives and Living Will 05/13/2016 POWER OF STONE PLANER FO R HEALTH CARE Advance Directives and Living Will 05/13/2016 SHORT FORM POWER OF STONE PLANER Advance Directives and Living Will 04/06/2016 POWER OF STONE PLANER FO R HEALTH CARE Advance Directives and Living Will 03/23/2016 POWER OF STONE PLANER FO R HEALTH CARE Advance Directives and Living Will 01/27/2016 POWER OF STONE PLANER FO R HEALTH CARE Advance Directives and Living Will 10/23/2015 POWER OF STONE PLANER FO R HEALTH CARE Advance Directives and Living Will 10/21/2015 POWER OF STONE PLANER FO R HEALTH CARE Advance Directives and Living Will 10/21/2015 POWER OF STONE PLANER FO R HEALTH CARE Advance Directives and Living Will 10/21/2015 POWER OF STONE PLANER FO R HEALTH CARE Advance Directives and Living Will 10/01/2015 POWER OF STONE PLANER FO R HEALTH CARE Advance Directives and Living Will 08/08/2015 POWER OF STONE PLANER FO R HEALTH CARE Advance Directives and Living Will 06/25/2014 POWER OF STONE PLANER FO R HEALTH CARE Advance Directives and Living Will 05/23/2014 POWER OF STONE PLANER FO R HEALTH CARE * Full Code (Latest Code Status on File) Date Activated Date Inactivated Comments 03/11/2025 3:11 PM * DNR Date Activated Date Inactivated Comments 02/28/2025 7:05 PM 03/06/2025 4:17 PM * Full Code Date Activated Date Inactivated Comments 02/28/2025 6:39 PM 02/28/2025 7:05 PM * Full Code Date Activated Date Inactivated Comments 02/06/2025 5:28 PM 02/12/2025 6:34 PM * Full Code Date Activated Date Inactivated Comments 01/29/2025 12:53 PM 02/06/2025 1:58 PM Care Teams Tech Brazer Tester Relationship Specialty Start Date End Date Megan Infante MD [address] [place] [address] PCP - General FAMILY PRACTICE 04/06/16 [place] [address] Consulting Physician PULMONARY DISEASE 07/12/19 Concetta Acevedo MD [address] [place] [address] Surgeon NEUROLOGICAL SURGERY 12/16/22 Jeff Grace MD [address] [place] [id number] Consulting Physician INTERNAL MEDICINE 02/11/23 Brit Gonzáles MD [address] [place] [address] Consulting Physician CARDIOVASCULAR DISEASE 12/29/23 [place] [address] [place], [place] [id number] OPHTHALMOLOGY 12/04/24 Corrie Pickard, waste collection driver (Ambulatory) REGISTERED NURSE 12/26/24
--- OUTSIDE RECORDS SUMMARY | 2025-03-12 23:06 | XMS_ITS | Data Portability ---
Author Organization [facility], [address] [place]rology ([place]) Address [address] [place] [address] Care Team Providers Care Real Estate Listing Consultant Name Role Phone MASHA PINEDA Primary Care Provider KATINA FRANCIS Sausage Cooker [phone] MASHA PINEDA Referring Provider [phone] Assessment Encounter Date Assessment Date Assessment LastModified [...] with it. [email or web address] Not available 06/15/2024 17:22:56 02/01/2025 02/01/2025 Mr. Lay is a pleasant [...] plan and intent to comply with it. [email or web address] Not available 02/01/2025 16:49:07 Plan of Treatment Reminders Order Date Submit Date Provider Last Modified By Organization Details Last Modified Time Details Appointments Establish ed Patient 15.EST 2024 02:30P M Gold [place] Not available Not available Not available Establish ed Patient 15.EST 2024 03:00P M Sharita Not available Not available Not available Lab None recorded. Referral None recorded. Procedures None recorded. Surgeries None recorded. Imaging None recorded. Medication Orders None recorded. Patient TargetsNo targets recorded. Patient InstructionsNo instructions recorded. Reason for Referral None Reported. Results Created Date Observation Date Name Description Value Unit Range Abnormal Flag Note LastModifiedBy Organization Detail LastModifiedTime 03/02/2003/05/2025 [facility] PATHO LOGY path report [facility] kaity Depar tment of Labor atory Medic ine [address] [facility] [place] [address] Telep shane: , exten praveena 07 Patho logy Repor t Surgi mirtha Patho logy Repor t Name: OBIE CARROLL Speci men #: [id number] Age: [birth year] (Age: 69) Locat ion: SJS4M ED Sex: M Proce dure Date: 2024 Hospi kaity #: [id number] Date Recei nneka: 2024 Date Repor garcia: 2024 Provi shun: MARISOL Arboleda MD [facility] e: Gastr ic biops ies Clini mirtha Histo ry: Anemi a. Acute upper GI bleed . FINAL DIAGN OSIS: Stoma ch, biops ies: - Antra l type mucos a with react nhan gastr opath y. - Body type mucos a with mild chron ic gastr itis and featu res consi stent with zonia n pump inhib itor effec t. - No Helic obact er pylor i seen on routi ne stain . Gross Descr iptio n: Recei nneka in forma evelyn, label ed with a patie nt label and as kayleen mack biops y are 4 piece s of bonilla tissu e rangi ng from 0.2 to 0.5 cm. The speci men is entir patel submi tted in casse tte 1. Gross exami natio n (when appli cable ), inter preta tion, and sign out [facility], [address], [place] [address] . Martha ctron icall y Anne-Marie d Out YANCY RUDOLPH MD Not Available [place] Only - [facility] [address] [place] [address], [address], 03/05/2025 11:18:17 03/06/20 24 05/03/2023 imagi ng/di agnos tic [...] ation record ed. Not Available 04/06/2024 06:24:57 04/06/2012/05/2022 imagi ng/di agnos tic resul t No [...] ation record ed. [email or web address] Not Available 22:53:36 02/25/20 25 09/18/2019 imagi ng/di agnos tic resul t No observ ation record ed. [email or web address] Not Available 0 02/24/2025 07:29:55 02/25/20 25 09/20/2019 imagi ng/di agnos tic resul t No observ ation record ed. [email or web address] Not Available 0 02/24/2025 07:29:55 02/25/20 25 10/02/2019 imagi ng/di agnos tic resul t No observ ation record ed. [email or web address] Not Available 0 02/24/2025 07:29:56 02/25/20 25 05/05/2019 imagi ng/di agnos tic resul t No observ ation record ed. [email or web address] Not Available 0 02/24/2025 07:29:57 02/25/20 25 05/05/2019 imagi ng/di agnos tic resul t No observ ation record ed. [email or web address] Not Available 0 02/24/2025 07:29:58 02/25/2005/29/2019 imagi ng/di agnos tic resul t No observ ation record ed. [email or web address] Not Available 0 02/24/2025 07:29:58 02/25/2006/19/2019 imagi ng/di agnos tic resul t No observ ation record ed. [email or web address] Not Available 0 02/24/2025 07:30:02 Result Notes None recorded. Problems Name Problem SNOMED Code Status Onset Date Resolution Date Notes Provider Name and Address Organization Details Recorded Time Hyperkalemia 45124363 Active 2023 Leatha york [facility] 4 10:23:34 Renal mass 987744844 Active 2023 Leatha york [facility] 4 10:23:41 Chronic kidney disease stage 3A 410182077 Active 2023 Leatha york [facility] 4 10:23:51 Congestive heart failure 93678173 Active 2023 Leatha york [facility] 4 10:24:00 Vitamin D deficiency 06573496 Active 2023 [facility] 4 10:24:17 Dyspnea 229118125 Active 2023 Leatha Deluna [facility] 4 10:24:26 Decreased renal function 51502704 Active 2023 Tano Potter [facility] 4 11:05:35 Hypervolemia 28070938 Active 2024 Leatha Deluna [facility] 5 10:13:46 Problem Notes None recorded. 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: SOO SR ([facility] Pulmonar y Medicine ) , Durable Med [...] e Micro Pen Needle 32 gauge x / active Not Available Not Available Not Available [...] in Arterial blood by Pulse oximetry Systolic And Diastolic Provider Name and Address Organization Details Last Updated DateTime 5 167.64 cm 22.3 kg/m2 20880.7 5 g 70 /min 96 % 96 % 134/80 mm[Hg] [facility] 5 12:41:31 Date Recorded Body height Heart rate Oxygen saturation Oxygen saturation in Arterial blood by Pulse oximetry Systolic And Diastolic Provider Name and Address Organization Details Last Updated DateTime 4 167.64 cm 77 /min 99 % 99 % 120/72 mm[Hg] [facility] 4 11:55:08 Date Recorded Body height Heart rate Systolic And Diastolic Provider Name and Address Organization Details Last Updated DateTime 06/15/2024 167.64 cm 91 /min 106/54 mm[Hg] Cristiano Mora [facility] 06/15/2024 11:30:13 Social History Question Answer Notes LastModified by Organizat ion Details LastModified Time Tobacco Smoking Status Former Smoker Leatha Deluna chela, [facility] 10/02/2024 17:01:49 Do You Have [...] Do You Have A Medical Power Of Sales Designer? No [email or web address] Information not available 03/09/2024 What [...] N Arthritis Y Hyperlipidemia N Cancer N Thyroid Problems N Stroke N Asthma N COPD Y Depression N Anemia N Seizures N Heart Disease Y Fibromyalgia N Osteoporosis N Kidney Disease Y Past Encounters Encounter ID Performer Location Encounter Start Date Encounter Closed Date Diagnosis/Indication Diagnosis SNOMED-CT Code Diagnosis ICD10 Code Diagnosis Note [id number] Katina Francis MD [facility] ([place]) [address] [place] [address] 03/16/2024 11:28:49 03/16/2024 12:18:20 Chronic kidney disease stage 3A 210436555 N18.31 Decreased renal function 31972439 R94.4 Hyperkalemia 17612412 E8 7.5 Renal mass 277723704 N28 .89 Vitamin D deficiency 347 50951 E55.9 [id number] Theresa Sheriff PA-C [facility] ([place]) [address] [place] [address] 06/15/2024 11:12:17 06/15/2024 11:50:06 Chronic kidney disease stage 3A 414035932 N18.31 [id number] Katina Francis MD [facility] ([place]) [address] [place] [address] 02/01/2025 12:03:20 02/01/2025 13:09:05 Chronic kidney disease stage 3A 493409050 N18.31 follow up in 3-4 mons. cbc,rfp microalbum in Hyperkalemia 05564031 E8 7.5 Renal mass 652058710 N28 .89 Health Concerns Section Related Observation LastModified by Organization Detai ls LastModified Time None Recorded Concern Status LastModified by Organization Details LastModified Time None Recorded Advance Directives Directive N: Payers Insurance Date Sequence Insurance Name Policy Number Policy Vicente Covered Member ID Vicente Member ID Guarantor Name 06/19/2024 1 [place] Obie Lay [id number] Obie Lay 03/05/2025 2 [facility] (MEDICARE SUPPLEMENT) Obie Lay [id number] Obie Lay 02/14/2025 1 [facility] (MEDICARE REPLACEMENT/A DVANTAGE - PPO) [id number] Obie Lay [id number] Obie Lay 03/05/2025 1 [facility] (MEDICARE REPLACEMENT/A DVANTAGE - PPO) [id number] Obie Lay [id number] Obie Lay Notes Date Note Type Note Provider [...] infection is currently on Levaquin therapy. Katina Francis MD [facility], [address], [facility] 03/16/2024 12:17:49 06/15/2024 text/html Mr. Lay is [...] he thinks he has been doing okay. M. [place], PA-C [address] [place] [address], [phone], [facility] 06/15/2024 17:23:12 02/01/2025 text/html Mr. Lay is a pleasant [...] Oneill catheter Katina Francis MD [address] [place] [address], [phone], [facility] 02/01/2025 16:50:59
--- OUTSIDE RECORDS SUMMARY | 2025-03-12 23:06 | XMS_ITS ---
Author Organization [facility] Address [address] [place], [place] [id number] Care Team Providers Care Irrigator Gravity Flow Name Role Phone CADEN BARRERA Unavailable [phone] Megan Infante Unavailable Unavailable KARLA GUNN Unavailable [phone] REASON FOR VISIT *General care Encounters Encounter Location Date Provider Diagnosis [address] [id number] 09/07/2024 KARLA GUNN Plan Of Treatment Next Appt Details Provider Name:BARRERA ALFARO, 04/26/2025 09:50:00 AM, [address] [place] [address], [phone], Progress Notes * OBIE SIMS RDOB:1955 (69 yo M)Acc No.[id number]:09/07/2024 Patient: Philly OBIE DIAS Provider: rCow GUNN :1955 A ge:69 Y S ex:Male Date:09/07/2024 Address:[address] [place], [place] [phone] Subjective: * Chief Complaints: * 1 . *General care. * Medical History: Objective: * Vitals: Assessment: Plan: * Treatment: * Billing Information: * Visit Code: * Procedure Codes: * Electronic signature of LUIS FERNANDO GUNN DPM on 03/12/2025 at 01:10 PM CDT Sign off status: Pending * Provider: Crow GUNN Date: 0 09/07/2024 Generated for Katiana watson/Kaitlyn/Mindy on: 0 03/12/2025 01:10 PM CDT
--- OUTSIDE RECORDS SUMMARY | 2025-03-12 23:06 | XMS_ITS | Encounter Summary ---
Author Organization [facility] Address [address] [place] [address] Care Team Providers Care Administrative Support Assistant Name Role Phone Megan Infante MD Primary Care Provider [phone] Zaki Ortiz MD Unavailable [phone] Concetta Acevedo MD Unavailable [phone] Jfef Grace MD Unavailable Brit Gonzáles MD Unavailable Cirilo Pal MD Unavailable [phone] Corrie Pickard RN Unavailable Unavailab le Encounter Details Date Type Department Care Team (Late st Contact Info) Description 02/28/2025 Rowl Message Enc [facility] ield [address] [place] [address] Mychart, [facility] Provider Labs results Social History Tobacco Use Types Packs/Day Years Used Date Smoking Tobacco: Former Passive Smoke Exposure: Past Smokeless Tobacco: Former Chew Alcohol Use Standard Drinks/Week Comments Yes 0 (1 standard drink = 0.6 oz pur e alcohol) 4 beers per week OASIS D0700: Social Isolation Answer Da te Recorded Frequency of experiencing loneliness or isolatio n Never 02/14/2025 OASIS A1250: Transportation Answer Date Recorded Lack of Transportation (Medical) No 02/14/2025 Lack of Transportation (Non-Medical) No 02/14/2025 Patient Unable or Declines to Respond No 02/14/2025 OASIS B1300: Health Literacy Answer Stevenson e Recorded Frequency of needing help to read materials from doctor or pharmacy Never 02/14/2025 B1300 Health Literacy Answer Date Recor ded How often do you need to hav e someone help you when you read instructions, pamphlets, or other written material from your doctor or pharmacy? Often 01/10/2025 [facility] Utilities Answer Date Recorded In the past 12 months has th e [employer], gas, oil, or water company threatened to [...] 01/10/2025 How often do you attend chur or yarsanism services? Never 01/10/2025 Do you belong to [...] on to questions 3-9 0 12/01/2021 [facility] - Occupational Stress Questionnaire Answer Date Recorded [...] a retirement (including now)? Patient declined 07/12/2023 Housing Stability [...] any time in the past 12 m [facility], were you homeless or living in a retirement (including now)? No 02/28/2025 Sex and Gender Information Value Date Recorded Sex Assigned at Male 09/07/2024 10:18 PM INFANT CAREGIVER Legal Sex Male 10:01 PM CDT Gender Identity Male 09/07/2024 10:18 PM INFANT CAREGIVER Sexual Orientation Straight 09/07/2024 10 :18 PM INFANT CAREGIVER Occupation Industry Job Start Date Job End Date Not on file Not on file Not on file Not on file documented as of this encounter Functional Status * Question Answer Date of Assessment Author Status Do you have serious difficulty walking or climbing stairs? Yes 02/28/2025 8:17 PM Tip Barrera RN Activ e * Question Answer Date of Assessment Author Status Do you have difficulty dressing or bathing? Yes 02/28/2025 8:17 PM Tip Barrera RN A ctive Because of a physical, mental, or emotional condition, do you have difficulty doing errands alone such as visiting a doctor's office or shopping? No 02/28/2025 8:17 PM Wu Barrera RN Active * Are you deaf or do you have serious difficulty hearing Answer Date of Assessment Author Status No 02/06/2025 11:10 PM Marily Izquierdo RN Active * Are you blind or do you have serious difficulty seeing, even when wearing glasses? Answer Date of Assessment Author Status No 02/06/2025 11:10 PM Marily Izquierdo RN Active * Do you have serious difficulty walking or climbing stairs? Answer Date of Assessment Author Status Yes 02/06/2025 11:12 PM Marily Izquierdo RN Active * Do you have difficulty dressing or bathing? Answer Date of Assessment Author Status Yes 02/06/2025 11:12 PM Marily Izquierdo RN Active * Because of a physical, mental, or emotional condition, do you have difficulty doing errands alone such as visiting a doctor's office or shopping? Answer Date of Assessment Author Status Yes 02/06/2025 11:12 PM CDT Marily Torres RN Active * Question Answer Date of Assessment Author Status Are you deaf or do you have serious difficulty hearing No 02/28/2025 8:17 PM SKYLART Tip White RN Active Are you blind or do you have serious difficulty seeing, even when wearing glasses? No 02/28/2025 8:17 PM SKYLART Tip White RN Active * Calculated C-SSRS Risk Score (Lifetime/Recent) Answer Date of Assessment Author Status No Risk Indicated 02/28/2025 3:32 PM CDT Esperanza Storm RN Active * [place] Suicide Severity Rating Scale (Screener/Recent Self-Report) Question Answer Date of Assessment Author Status 1. Wish to be (Past 1 Month) No 02/28/2025 3:32 PM SKYLART Lincoln Storm RN Active 2. Non-Specific Active Suicidal Thoughts (Past 1 Month) No 02/28/2025 3:32 PM SKYLART Lincoln Storm RN Active 6. Suicidal Behavior (Lifetime) No 02/28/2025 3:32 PM SKYLART Lincoln Storm RN Active documented as of this encounter Mental Status * Question Answer Entry Date Author Status Because of a physical, mental, or emotional condition, do you have serious difficulty concentrating, remembering, or making decisions? No 02/28/2025 8:17 PM KSYLART Tip White RN A ctive * Because of a physical, mental, or emotional condition, do you have serious difficulty concentrating, remembering, or making decisions? Answer Entry Date Author Status No 02/06/2025 11:12 PM CDT Marily Torres RN Active documented in this encounter Plan of Treatment Upcoming Encounters Date Type Department Care Team (Late st Contact Info) Description 03/13/2025 10:00 AM CDT Home Care Visit [facility] Home Care [facility] [address] [place] [address] Dari Payne LPN 03/13/2025 10:00 AM CDT Home Care Visit [facility] Home Care [facility] [address] [place] [address] Spring Gilbert, PT [address] [place], [place] [address] 03/16/2025 9:15 AM CDT Home Care Visit [facility] [address] [place] [address] Dari Payne LPN 03/20/2025 9:45 AM CDT Home Care Visit [facility] [address] [place] [address] Mallika Dean, RN 03/23/2025 12:45 PM CDT Home Care Visit [facility] [address] [place] [address] Dari Payne LPN 03/28/2025 8:00 AM CDT Appointment [facility] [address] [place] [address] Cecile Hills, RN [phone] (Work) 04/02/2025 11:15 AM CDT Appointment [facility] [address] [place] [address] Brit Gonzáles MD [address] [place] [address] 04/12/2025 1:00 PM CDT [facility] [address] [place] [address] Lobo Allred, MASONRY INSPECTOR [address] [place] [address] 05/23/2025 11:45 AM CDT Office Visit [facility] [place] [address] Brit Gonzáles MD [address] [place] [address] 08/08/2025 1:45 PM INFANT CAREGIVER [facility] [address] [place] [address] Brit Gonzáles MD [address] [place] [address] documented as of this encounter Goals Goal [...] documented as of this encounter Care Teams Administrative Support Assistant Relationship Specialty Start Date End Date Megan Infante MD [address] [place] [phone] PCP - General FAMILY PRACTICE 04/06/16 Zaki Ortiz MD [address] [phone] Consulting Physician PULMONARY DISEASE 07/12/19 Concetta Acevedo MD [address] [place] [address] Surgeon NEUROLOGICAL SURGERY 12/16/22 Jeff Grace MD [address] [place] [address] Consulting Physician INTERNAL MEDICINE 02/11/23 Brit Gonzáles MD [address] [place] [address] Consulting Physician CARDIOVASCULAR DISEASE 12/29/23 [place] [address] [facility] [place] [address] OPHTHALMOLOGY 12/04/24 Corrie Pickard, document controller (Ambulatory) REGISTERED NURSE 12/26/24 documented as of this encounter
--- OUTSIDE RECORDS SUMMARY | 2025-03-12 23:06 | XMS_ITS | Encounter Summary ---
Author Organization [facility] Address [address] [place] [address] Care Team Providers Care Pearl Fisherman Name Role Phone Piyush Pandey MD Unavailable [phone] Megan Infante MD Primary Care Provider [phone] Sharmila Davis APRN, NP-C Unavailable [phone] Linda Block MD Unavailable [phone] Jeff Grace MD Unavailable Zaki Ortiz MD Unavailable [phone] Concetta Acevedo MD Unavailable [phone] Jeff Grace MD Unavailable Brit Gonzáles MD Unavailable Cirilo Pal MD Unavailable [phone] Corrie Pickard RN Unavailable Unavailab Encounter Details Date Type Department Care Team (Late st Contact Info) Description 11/06/2017 Abstract [facility] CONVERSION [address] [place], [place] [address] , Generic Conversion, Social History Tobacco Use Types Packs/Day Years Used Date Smoking Tobacco: Former Smokeless Tobacco: Former Chew Alcohol Use Standard Drinks/Week Comments Yes 0 (1 standard drink = 0.6 oz pur e alcohol) 6 per week Sex and Gender Information Value Date Recorded Sex Assigned at Male 09/07/2024 10:18 PM DIGITAL LIBRARIAN Legal Sex Male 10:01 PM CDT Gender Identity Male 09/07/2024 10:18 PM DIGITAL LIBRARIAN Sexual Orientation Straight 09/07/2024 10 :18 PM DIGITAL LIBRARIAN Occupation Industry Job Start Date Job End Date Not on file Not on file Not on file Not on file documented as of this encounter Plan of Treatment Upcoming Encounters Date Type Department Care Team (Late st Contact Info) Description 03/13/2025 10:00 AM CDT Home Care Visit [facility] [address] [place] [address] Dari Payne LPN 03/13/2025 10:00 AM CDT Home Care Visit [place] [address] [place] [address] Spring Gilbert, PT [address] [place] [address] 03/16/2025 9:15 AM CDT Home Care Visit [place] [address] [place] [address] Dari Payne LPN 03/20/2025 9:45 AM CDT Home Care Visit [address] [address] Mallika Dean RN 03/23/2025 12:45 PM CDT Home Care Visit [address] [address] Dari Payne LPN 03/28/2025 8:00 AM CDT Appointment [facility] [address] [place] [address] Cecile Hills, RN [phone] (Work) 04/02/2025 11:15 AM CDT Appointment [facility] [address] [place] [address] Brit Gonzáles MD [address] [place] [address] 04/12/2025 1:00 PM CDT Office Visit [facility] d [address] [place] [address] Lobo Allred, WELDING MACHINE OPERATOR HELPER ARC [address] [place] [address] 05/23/2025 11:45 AM CDT Office Visit [facility] [address] [place] [phone] Brit Gonzáles MD [address] [place] [address] 08/08/2025 1:45 PM DIGITAL LIBRARIAN Office Visit [place] [address] [place] [phone] Brit Gonzáles MD [address] [place], [place] [address] documented as of this encounter Visit Diagnoses Not on filedocumented in this encounter Additional Health Concerns Infection Onset Date Last Indicated Resolved Time COVID-19 Rule Out 03/02/2020 03/02/2020 03/03/2020 8:23 PM CDT COVID-19 Rule Out 07/03/2020 07/03/2020 07/04/2020 11:25 PM DIGITAL LIBRARIAN COVID-19 Rule Out 09/07/2020 09/07/2020 09/08/2020 5:52 PM DIGITAL LIBRARIAN COVID-19 Rule Out 10/05/2020 10/05/2020 10/06/2020 11:37 AM DIGITAL LIBRARIAN COVID-19 Rule Out 02/08/2021 02/08/2021 02/08/2021 9:06 PM CDT COVID-19 Rule Out 01/24/2022 01/24/2022 01/24/2022 6:41 PM CDT COVID-19 Rule Out 01/04/2023 01/04/2023 01/04/2023 10:12 AM CDT documented as of this encounter Care Teams Pearl Fisherman Relationship Specialty Start Date End Date Megan Infante MD [address] [facility] [place] [address] PCP - General FAMILY PRACTICE 04/06/16 Piyush Pandey MD [address] [place] [address] [place] Human Resources Benefits Coordinator CARDIOVASCULAR DISEASE 04/06/16 12/28/23 Sharmila Davis, TRENCH PIPE LAYER, WELDING MACHINE OPERATOR HELPER ARC-C [address] [address] NURSE PRACTITIONER 01/04/17 04/03/24 Linda Block MD [address] [place] [address] [employer] Benefits Coordinator CLINICAL CARDIAC ELECTROPHYSIOLOGY 02/08/17 04/12/23 Jeff Grace MD [address] [address] Consulting Physician INTERNAL MEDICINE 02/20/19 3 Zaki Ortiz MD [address] [address] Consulting Physician PULMONARY DISEASE 07/12/19 Concetta Acevedo MD [address] [place] [address] Surgeon NEUROLOGICAL SURGERY 12/16/22 Jeff Grace MD [address] [place] [address] Consulting Physician INTERNAL MEDICINE 02/11/23 Brit Gonzáles MD [address] [place] [address] Consulting Physician CARDIOVASCULAR DISEASE 12/29/23 [place] [address] [place] [address] OPHTHALMOLOGY 12/04/24 Corrie Pickard, donor specialist (Ambulatory) REGISTERED NURSE 12/26/24 documented as of this encounter
--- OUTSIDE RECORDS SUMMARY | 2025-03-12 23:06 | XMS_ITS | Encounter Summary ---
Author Organization [facility] Address [address] [place] [address] Care Team Providers Care Coroner Name Role Phone Megan Infante MD Primary Care Provider [phone] Zaki Ortiz MD Unavailable [phone] Concetta Acevedo MD Unavailable + [phone] Jeff Grace MD Unavailable Brit Gonzáles MD Unavailable Cirilo Pal MD Unavailable [phone] Corrie Pickard RN Unavailable Unavailab le Encounter Details Date Type Department Care Team (Late st Contact Info) Description 02/13/2025 Hospital Follow-up Call [facility] Unit [address] [place] [address] Cara Potter RN Social History Tobacco Use Types Packs/Day [...] from your doctor or pharmacy? Often 01/10/2025 [facility] Utilities Answer Date Recorded In the past 12 months has th e [employer], gas, oil, or water company threatened to shut off services in your home? No 02/07/2025 Humiliation, Afraid, Rape, and Kick questionnair e Answer Date Recorded Within the last year, have y ou been afraid of your partner or ex-partner? No 02/07/2025 Within the last year, have y ou been humiliated or emotionally abused in other ways by your partner or ex-partner? No Within the last year, have y ou been kicked, hit, slapped, or otherwise physically hurt by your partner or ex-partner? No 02/07/2025 Within the last year, have y ou been raped or forced to have any kind of sexual activity by your partner or ex-partner? No 02/07/2025 Social Connection and Isolation Panel [NHANES] A nswer Date Recorded In a typical week, how many times do you talk on the phone with family, friends, or neighbors? Three times a week 01/10/2025 How often do you get togethe r with friends or relatives? Once a week 01/10/2025 How often do you attend chur or mormonism services? Never 01/10/2025 Do you belong to [...] medical care, and heating? Not very hard 02/07/2025 PHQ-2 Answer Date Recorded PHQ-2 Score - If the patient scores above 3, please move on to questions 3-9 0 12/01/2021 [facility] - Occupational Stress Questionnaire Answer Date [...] the money to buy more. Never true 02/08/20 25 Within the past 12 months, t he food you bought just didn't last and you didn't have money to get more. Never true 02/07/2025 PRAPARE - Transportation Answer Date Re corded In the past 12 months, has l ack of transportation kept you from medical appointments or from getting medications? No 01/21 In the past 12 months, has l ack of transportation kept you from meetings, work, or from getting things needed for daily living? No 02/07/2025 Housing Stability Vital Sign Answer Stevenson e [...] a mcfp (including now)? Patient declined 07/12/2023 Housing Stability Vital Sign Answer Stevenson e Recorded In the last 12 months, was t here a time when you were not able to pay the mortgage or rent on time? No 02/07/2025 In the past 12 months, how m any times have you moved where you were living? 0 02/07/2025 At any time in the [facility], were you homeless or living in a [facility]p (including now)? No 02/07/2025 Sex and Gender Information Value Date Recorded Sex Assigned at Male 09/07/2024 10:18 PM CO CHAIRMAN Legal Sex Male 10:01 PM CDT Gender Identity Male 09/07/2024 10:18 PM CO CHAIRMAN Sexual Orientation Straight 09/07/2024 10 :18 PM CO CHAIRMAN Occupation Industry Job Start Date Job End Date Not on file Not on file Not on file Not on file documented as of this encounter Functional Status * Are you deaf or do you have serious difficulty hearing Answer Date of Assessment Author Status No 02/06/2025 11:10 PM SKYLART Marily Torres RN Active * Are you blind or do you have serious difficulty seeing, even when wearing glasses? Answer Date of Assessment Author Status No 02/06/2025 11:10 PM CDT Marily Torres RN Active * Do you have serious difficulty walking or climbing stairs? Answer Date of Assessment Author Status Yes 02/06/2025 11:12 PM SKYLART Marily Torres RN Active * Do you have difficulty dressing or bathing? Answer Date of Assessment Author Status Yes 02/06/2025 11:12 PM Marily Izquierdo RN Active * Because of a physical, mental, or emotional condition, do you have difficulty doing errands alone such as visiting a doctor's office or shopping? Answer Date of Assessment Author Status Yes 02/06/2025 11:12 PM SKYLART Marily Torres RN Active documented as of this encounter Mental Status * Because of a physical, mental, or emotional condition, do you have serious difficulty concentrating, remembering, or making decisions? Answer Entry Date Author Status No 02/06/2025 11:12 PM Marily Izquierdo RN Active documented in this encounter Plan of Treatment Upcoming Encounters Date Type Department Care Team (Late st Contact Info) Description 03/13/2025 10:00 AM CDT Home Care Visit [facility] Home Care [address] [address] Dari Payne LPN 03/13/2025 10:00 AM CDT Home Care Visit [facility] [address] [place] [address] Spring Gilbert, PT [address] [place] [address] 03/16/2025 9:15 AM CDT Home Care Visit [facility] [address] [place] [address] Dari Payne LPN 03/20/2025 9:45 AM CDT Home Care Visit [facility] [address] [place] [address] Mallika Dean, RN 03/23/2025 12:45 PM CDT Home Care Visit [facility] [address] [place] [address] Dari Payne LPN 03/28/2025 8:00 AM CDT Appointment [facility] [address] [place] [address] Cecile Hills, RN [phone] (Work) 04/02/2025 11:15 AM CDT Appointment [facility] [address] [facility] [place] [address] Brit Gonzáles MD [address] [place] [address] 04/12/2025 1:00 PM CDT [facility] [address] [place] [address] Lobo Allred, APPLIANCE TESTER [address] [place] [address] 05/23/2025 11:45 AM CDT [facility] [address] [place] [address] Brit Gonzáles MD [address] [place] [address] 08/08/2025 1:45 PM CO CHAIRMAN [facility] Visit [facility] [place] [address] [place] [address] Brit Gonzáles MD [address] [place] [address] documented as of this encounter Goals Goal [...] documented as of this encounter Care Teams Coroner Relationship Specialty Start Date End Date Megan Infante MD [address] [place] [phone] PCP - General FAMILY PRACTICE 04/06/16 Zaki Oritz MD [address] [place] [phone] Consulting Physician PULMONARY DISEASE 07/12/19 Concetta Acevedo MD [address] [place] [address] [phone] Surgeon NEUROLOGICAL SURGERY 12/16/22 Jeff Grace MD [address] [place] [address] [phone] Consulting Physician INTERNAL MEDICINE 02/11/23 Brit Gonzáles MD [address] [place] [address] Consulting Physician CARDIOVASCULAR DISEASE 12/29/23 [place] [address] [place] [address] OPHTHALMOLOGY 12/04/24 Corrie Pickard, hurl shaker (Ambulatory) REGISTERED NURSE 12/26/24 documented as of this encounter
--- OUTSIDE RECORDS SUMMARY | 2025-03-12 23:06 | XMS_ITS | Encounter Summary ---
Author Organization [facility] Address [address] [place] [address] Care Team Providers Care Gmat Instructor Name Role Phone Piyush Pandey MD Unavailable [phone] Megan Infante MD Primary Care Provider [phone] Sharmila Davis APRN, METAL SPRAYER PROTECTIVE COATING-C Unavailable Linda Block MD Unavailable Jeff Grace MD Unavailable Zaki Ortiz MD Unavailable [phone] Concetta Acevedo MD Unavailable [phone] Jeff Grace MD Unavailable Brit Gonzáles MD Unavailable Cirilo Pal MD Unavailable [phone] Corrie Pickard RN Unavailable Unavailab Encounter Details Date Type Department Care Team (Late st Contact Info) Description 01/21/2023 Abstract [facility] [address] [place] [address] Sharmila Davis APRN, METAL SPRAYER PROTECTIVE COATING-C [address] [facility] [address] [place] [address] Social History Tobacco Use Types [...] Sex Assigned at Male 09/07/2024 10:18 PM PROGRAM ASSISTANT Legal Sex Male 10:01 PM CDT Gender Identity Male 09/07/2024 10:18 PM PROGRAM ASSISTANT Sexual Orientation Straight 09/07/2024 10 :18 PM PROGRAM ASSISTANT Occupation Industry Job Start Date Job End [...] 03/13/2025 10:00 AM CDT Home Care Visit [facility] Home [facility] [address] [place] [address] Dari Payne LPN 03/13/2025 10:00 AM CDT Home Care Visit [facility] [address] [place] [address] Spring Gilbert, PT [address] [place] [address] 03/16/2025 9:15 AM CDT Home Care Visit [facility] [address] [place] [address] Dari Payne LPN 03/20/2025 9:45 AM CDT Home Care Visit [place] [address] [place] [address] Mallika Dean, RN 03/23/2025 12:45 PM CDT Home Care Visit [place] [facility] [address] [place] [address] Dari Payne LPN 03/28/2025 8:00 AM CDT Appointment [place] [address] [place] [address] Cecile Hills, RN [phone] (Work) 04/02/2025 11:15 AM CDT Appointment [facility] [address] [facility] [place] [address] Brit Gonzáles MD [address] [place] [address] 04/12/2025 1:00 PM CDT [facility] [address] [place] [address] Lobo Allred, METAL SPRAYER PROTECTIVE COATING [address] [place] [address] 05/23/2025 11:45 AM CDT [facility] Visit [facility] [place] [address] [place] [phone] Brit Gonzáles MD [address] [place] [address] 08/08/2025 1:45 PM PROGRAM ASSISTANT Office Visit [facility] [place] [address] [place] [phone] Brit Gonzáles MD [address] [place], [place] [phone] documented as of this encounter Visit Diagnoses Not on filedocumented in this encounter Additional Health Concerns Assessment Noted Time PHQ-9 Depression Total Score: 0 12/02/19 22 1:18 PM CDT documented as of this encounter Care Teams Gmat Instructor Relationship Specialty Start Date End Date Megan Infante MD [address] [place] [address] PCP - General FAMILY PRACTICE 04/06/16 Piyush Pandey MD [address] [place] [phone] [facility] Glass Grinder CARDIOVASCULAR DISEASE 04/06/16 12/28/23 Sharmila Davis APRN, METAL SPRAYER PROTECTIVE COATING-C [address] [place] [address] [address] [place] [address] NURSE PRACTITIONER 01/04/17 04/03/24 Linda Block MD [address] [place] [address] [phone] [facility] Glass Grinder CLINICAL CARDIAC ELECTROPHYSIOLOGY 02/08/17 04/12/23 Jeff Grace MD [address] [facility] [address] [place] [address] Consulting Physician INTERNAL MEDICINE 02/20/19 3 Zaki Ortiz MD [address] [facility] [address] [place] [address] Consulting Physician PULMONARY DISEASE 07/12/19 Concetta Acevedo MD [address] [place] [address] Surgeon NEUROLOGICAL SURGERY 12/16/22 Jeff Grace MD [address] [place] [address] Consulting Physician INTERNAL MEDICINE 02/11/23 Brit Gonzáles MD [address] [place] [address] Consulting Physician CARDIOVASCULAR DISEASE 12/29/23 [place] [address] [place], [place] [phone] OPHTHALMOLOGY 12/04/24 Corrie Pickard, syrup shed supervisor (Ambulatory) REGISTERED NURSE 12/26/24 documented as of this encounter
--- OUTSIDE RECORDS SUMMARY | 2025-03-12 23:06 | XMS_ITS | Encounter Summary ---
Author Organization [facility] Address [facility] [place] [address] Care Team Providers Care Concrete Bucket Loader Name Role Phone Pyiush Pandey MD Unavailable [phone] Megan Infante MD Primary Care Provider [phone] Sharmila Davis APRN, NP-C Unavailable [phone] Linda Block MD Unavailable [phone] Jeff Grace MD Unavailable Zaki Ortiz MD Unavailable [phone] Concetta Acevedo MD Unavailable + [phone] Jeff Grace MD Unavailable Brit Gonzáles MD Unavailable Cirilo Pal MD Unavailable [phone] Corrie Pickard RN Unavailable Unavailab le Encounter Details Date Type Department Care Team (Late st Contact Info) Description 01/28/2019 Abstract [facility] [address] [place] [address] , Generic Conversion, Social History Tobacco Use Types Packs/Day Years Used Date Smoking Tobacco: Former Smokeless Tobacco: Former Chew Alcohol Use Standard Drinks/Week Comments Yes 0 (1 standard drink = 0.6 oz pur e alcohol) 6 per week Sex and Gender Information Value Date Recorded Sex Assigned at Male 09/07/2024 10:18 PM ESL INSTRUCTIONAL ASSISTANT Legal Sex Male 10:01 PM CDT Gender Identity Male 09/07/2024 10:18 PM ESL INSTRUCTIONAL ASSISTANT Sexual Orientation Straight 09/07/2024 10 :18 PM ESL INSTRUCTIONAL ASSISTANT Occupation Industry Job Start Date Job End Date Not on file Not on file Not on file Not on file documented as of this encounter Plan of Treatment Upcoming Encounters Date Type Department Care Team (Late st Contact Info) Description 03/13/2025 10:00 AM CDT Home Care Visit [facility] [address] [place] [address] Drai Payne LPN 03/13/2025 10:00 AM CDT Home Care Visit [place] [address] [place] [address] Spring Gilbert, PT [address] [place] [address] 03/16/2025 9:15 AM CDT Home Care Visit [facility] [address] [place] [address] Dari Payne LPN 03/20/2025 9:45 AM CDT Home Care Visit [place] [address] [place] [address] Mallika Dean, RN 03/23/2025 12:45 PM CDT Home Care Visit [address] [address] Dari Payne LPN 03/28/2025 8:00 AM CDT Appointment [facility] [address] [place] [address] Cecile Hills, RN [phone] (Work) 04/02/2025 11:15 AM CDT Appointment [facility] [address] [facility] [place] [address] Brit Gonzáles MD [address] [place] [address] 04/12/2025 1:00 PM CDT Office Visit [facility] [address] [place] [address] Lobo Allred, FLOR [address] [place] [address] 05/23/2025 11:45 AM CDT Office Visit [facility] [address] [place] [address] Brit Gonzáles MD [address] [place] [address] 08/08/2025 1:45 PM ESL INSTRUCTIONAL ASSISTANT Office Visit [place] [address] [place] [address] Brit Gonzáles MD [address] [place] [address] documented as of this encounter Visit Diagnoses Not on filedocumented in this encounter Additional Health Concerns Infection Onset Date Last Indicated Resolved Time COVID-19 Rule Out 03/02/2020 03/02/2020 03/03/2020 8:23 PM CDT COVID-19 Rule Out 07/03/2020 07/03/2020 07/04/2020 11:25 PM ESL INSTRUCTIONAL ASSISTANT COVID-19 Rule Out 09/07/2020 09/07/2020 09/08/2020 5:52 PM ESL INSTRUCTIONAL ASSISTANT COVID-19 Rule Out 10/05/2020 10/05/2020 10/06/2020 11:37 AM ESL INSTRUCTIONAL ASSISTANT COVID-19 Rule Out 02/08/2021 02/08/2021 02/08/2021 9:06 PM CDT COVID-19 Rule Out 01/24/2022 01/24/2022 01/24/2022 6:41 PM CDT COVID-19 Rule Out 01/04/2023 01/04/2023 01/04/2023 10:12 AM CDT documented as of this encounter Care Teams Concrete Bucket Loader Relationship Specialty Start Date End Date Megan Infante MD [address] [facility] [facility] [place] [address] PCP - General FAMILY PRACTICE 04/06/16 Piyush Pandey MD [address] [place] [phone] Dinosaur Marble Installer Supervisor CARDIOVASCULAR DISEASE 04/06/16 12/28/23 Sharmila Davis, PROJECT MANAGEMENT CONSULTANT, UTILITIES SERVICE INVESTIGATOR-C [address] [address] NURSE PRACTITIONER 01/04/17 04/03/24 Linda Block MD [address] [place] [address] Dinosaur Marble Installer Supervisor CLINICAL CARDIAC ELECTROPHYSIOLOGY 02/08/17 04/12/23 Jeff Grace MD [address] [address] Consulting Physician INTERNAL MEDICINE 02/20/19 3 Zaki Ortiz MD [address] [address] Consulting Physician PULMONARY DISEASE 07/12/19 Concetta Acevedo MD [address] [place] [address]54[address] Surgeon NEUROLOGICAL SURGERY 12/16/22 Jeff Grace MD [address] [place] [address] Consulting Physician INTERNAL MEDICINE 02/11/23 Brit Gonzáles MD [address] [place] [address] Consulting Physician CARDIOVASCULAR DISEASE 12/29/23 [place] [address] [place] [address] OPHTHALMOLOGY 12/04/24 Corrie Pickard, heel lining paster (Ambulatory) REGISTERED NURSE 12/26/24 documented as of this encounter
--- OUTSIDE RECORDS SUMMARY | 2025-03-12 23:06 | XMS_ITS | Encounter Summary ---
Author Organization [facility] Address [address] [place] [address] Care Team Providers Care Hand Sign Writer Name Role Phone Megan Infante MD Primary Care Provider [phone] Zaki Ortiz MD Unavailable [phone] Concetta Acevedo MD Unavailable [phone] Jeff Grace MD Unavailable Brit Gonzáles MD Unavailable Cirilo Pal MD Unavailable [phone] Corrie Pickard RN Unavailable Unavailab le Encounter Details Date Type Department Care Team (Late st Contact Info) Description 03/11/2025 Plan of Care Documentation [facility] Home Care [facility] [address] [place] [address] Social History Tobacco Use Types Packs/Day Years [...] from your doctor or pharmacy? Often 01/10/2025 [facility] Utilities Answer Date Recorded In the past 12 months has th e [employer], gas, oil, or water company threatened to [...] often do you attend chur ch or restorationist services? Never 01/10/2025 Do you belong to any clubs o r organizations such as holiness groups, unions, fraternal or athletic groups, or [...] 0 12/01/2021 [facility] - Occupational Stress Questionnaire Answer Date [...] nursing home (including now)? Patient declined 07/12/2023 Housing [...] were you homeless or living in a nursing home (including now)? No 02/28/2025 Sex and Gender Information Value Date Recorded Sex Assigned at Male 09/07/2024 10:18 PM TOOTH CUTTER PINION Legal Sex Male 10:01 PM CDT Gender Identity Male 09/07/2024 10:18 PM TOOTH CUTTER PINION Sexual Orientation Straight 09/07/2024 10 :18 PM TOOTH CUTTER PINION Occupation Industry Job Start Date Job End [...] 03/13/2025 10:00 AM CDT Home Care Visit [facility] Home Care [address] [address] Dari Payne LPN 03/13/2025 10:00 AM CDT Home Care Visit [facility] [address] [place] [address] Spring Gilbert, PT [address] [place] [address] 03/16/2025 9:15 AM CDT Home Care Visit [facility] [address] [place] [address] Dari Payne LPN 03/20/2025 9:45 AM CDT Home Care Visit [facility] [address] [place] [address] Mallika Dean, RN 03/23/2025 12:45 PM CDT Home Care Visit [facility] [address] [place] [address] Dari Payne LPN 03/28/2025 8:00 AM CDT Appointment [facility] [address] [place] [address] Cecile Hills, RN [phone] (Work) 04/02/2025 11:15 AM CDT Appointment [facility] [address] [facility] [place] [address] Brit Gonzáles MD [address] [place] [address] 04/12/2025 1:00 PM CDT Office Visit [facility] [address] [place] [address] [phone] Lobo Allred, CUSTODIAL FOREMAN [address] [place] [address] 05/23/2025 11:45 AM CDT Office Visit [facility] [place] [address] [place] [address] Brit Gonzáles MD [address] [place], [place] [address] 08/08/2025 1:45 PM TOOTH CUTTER PINION Office Visit [facility] [place] [address] [place] [address] Brit Gonzáles MD [address] [place], [place] 39[address] documented as of this encounter Goals Goal [...] as of this encounter Care Teams Hand Sign Writer Relationship Specialty Start Date End Date Megan Infante MD [address] [place] [address] PCP - General FAMILY PRACTICE 04/06/16 Zaki Ortiz MD [address] [place] [phone] Consulting Physician PULMONARY DISEASE 07/12/19 Concetta Acevedo MD [address] [place] [address] [phone] Surgeon NEUROLOGICAL SURGERY 12/16/22 Jeff Grace MD [address] [place] [address] 527[address] Consulting Physician INTERNAL MEDICINE 02/11/23 Brit Gonzáles MD [address] [place] [address] Consulting Physician CARDIOVASCULAR DISEASE 12/29/23 [place] [address] [place] [address] OPHTHALMOLOGY 12/04/24 Corrie Pikcard, magnetic testing technician (Ambulatory) REGISTERED NURSE 12/26/24 documented as of this encounter
--- OUTSIDE RECORDS SUMMARY | 2025-03-12 23:06 | XMS_ITS | Encounter Summary ---
Author Organization [facility] Address [address] [place] [address] Care Team Providers Care Therapy Assistant Name Role Phone Megan Infante MD Primary Care Provider [phone] Zaki Ortiz MD Unavailable [phone] Concetta Acevedo MD Unavailable [phone] Jeff Grace MD Unavailable Brit Gonzáles MD Unavailable Cirilo Pal MD Unavailable [phone] Corrie Pickard RN Unavailable Unavailab Reason for Visit * Auth/Cert (Routine) Specialty Diagnoses / Procedures Referred By Contac t Referred To Contact Home Health Services Referral ID Status Reason Start Date Expiration Date Visits Re quested Visits Authorized [id number] 1 1 Encounter Details Date Type Department Care Team (Latest Contact Info) Description 03/11/2025 9:30 AM CDT Home Care Visit [facility] Home Care [facility] [address] [place] [address] Mallika Dean, RN SN OASIS RESUMPTION OF CARE Social History Tobacco Use Types Packs/Day Years [...] from your doctor or pharmacy? Often 01/10/2025 [facility] Utilities Answer Date Recorded In the past 12 months has e in[employer]apps, gas, oil, or water [employer] threatened to shut off services in your [...] often do you attend chur ch or protestant services? Never 01/10/2025 Do you belong to [...] 3-9 0 12/01/2021 [facility] [place] [facility] Occupat ional Health - Occupational Stress [...] any time in the past 12 m [facility], were you homeless or living in a group home (including now)? No 02/28/2025 Sex and Gender Information Value Date Recorded Sex Assigned at Male 09/07/2024 10:18 PM ENFORCEMENT SAFETY OFFICER Legal Sex Male 10:01 PM CDT Gender Identity Male 09/07/2024 10:18 PM ENFORCEMENT SAFETY OFFICER Sexual Orientation Straight 09/07/2024 10 :18 PM ENFORCEMENT SAFETY OFFICER Occupation Industry Job Start Date Job End [...] (220 lb) 03/11/2025 9:46 AM CDT Height - - Body Mass Index 35.51 02/28/2025 4:02 PM CDT documented in this encounter Functional Status * Are you deaf or do you have serious difficulty hearing Answer Date of Assessment Author Status No 02/28/2025 8:17 PM CDT Tip White RN Active * Are you blind or do you have serious difficulty seeing, even when wearing glasses? Answer Date of Assessment Author Status No 02/28/2025 8:17 PM CDT Tip White RN Active * Do you have serious difficulty walking or climbing stairs? Answer Date of Assessment Author Status Yes 02/28/2025 8:17 PM SKYLART Tip White RN Active * Do you have difficulty dressing or bathing? Answer Date of Assessment Author Status Yes 02/28/2025 8:17 PM CDT Tip White RN Active * Because of a physical, mental, or emotional condition, do you have difficulty doing errands alone such as visiting a doctor's office or shopping? Answer Date of Assessment Author Status No 02/28/2025 8:17 PM SKYLART Tip White RN Active documented as of this encounter Mental Status * Because of a physical, mental, or emotional condition, do you have serious difficulty concentrating, remembering, or making decisions? Answer Entry Date Author Status No 02/28/2025 8:17 PM CDT Tip White RN Active documented in this encounter Plan of Treatment Upcoming Encounters Date Type Department Care Team (Late st Contact Info) Description 03/13/2025 10:00 AM CDT Home Care Visit [address] [address] Dari Payne LPN 03/13/2025 10:00 AM CDT Home Care Visit [address] [address] [place], PT [address] [place] [address] 03/16/2025 9:15 AM CDT Home Care Visit [address] [address] Dari Payne LPN 03/20/2025 9:45 AM CDT Home Care Visit [address] [address] Mallika Dean, RN 03/23/2025 12:45 PM CDT Home Care Visit [address] [address] Dari Payne LPN 03/28/2025 8:00 AM CDT Appointment [address] [address] Cecile Hills, RN [phone] (Work) 04/02/2025 11:15 AM CDT Appointment [facility] [address] [place] [address] Brit Gonzáles MD [address] [place], [place] [id number] 04/12/2025 1:00 PM CDT Office Visit [facility] jorge [address] [place] [address] Lobo Allred, NEWSPAPER EDITOR [address] [place] [address] 05/23/2025 11:45 AM CDT Office Visit [facility] [place] [address] [place] [address] Brit Gonzáles MD [address], [place] [address] 08/08/2025 1:45 PM ENFORCEMENT SAFETY OFFICER Office Visit [facility] [place] [address] [place] [address] Brit Gonzáles MD [address], [place] [address] documented as of this encounter Goals Goal [...] PM CDT documented as of this encounter Home Health Visit - Care Plan Visit Details Visit Type -SN - OASIS Resum ption of Care Discipline -Residential Problems Problem Description Start Date Status Goals Interventions Pain/Physical Discomfort Disciplines: SN Patient is experiencing pain/physical discomfort. 01/29/2025 Active 1 goal linked to scheduled/docume nted intervention 1 goal intervention scheduled/docume nted in this visit Collaboration of Care Disciplines: SN Collaboration for safe care. 01/29/2025 Active 5 goals linked to scheduled/docume nted interventions 9 goal interventions scheduled/docume nted in this visit Oxygen Safety/Precauti ons Disciplines: SN Oxygen Safety/Precautions 01/29/2025 Active 2 goals linked to scheduled/docume nted interventions 2 goal interventions scheduled/docume nted in this visit Fall Precautions Disciplines: SN Patient at risk for falls or has had recent fall occurrence(s). 01/29/2025 Active 1 goal linked to scheduled/docume nted intervention 2 goal interventions scheduled/docume nted in this visit Anticoagulation Therapy Disciplines: SN Management of anticoagulation therapy 01/29/2025 Active 1 goal linked to scheduled/docume nted intervention 1 goal intervention scheduled/docume nted in this visit Congestive Heart Failure Disciplines: SN Care related to congestive heart failure. 01/29/2025 Active 2 goals linked to scheduled/docume nted interventions 2 goal interventions scheduled/docume nted in this visit Chronic Obstructive Pulmonary Disease Disciplines: SN Care related to chronic obstructive pulmonary disease (includes asthma/bronchitis/e mphysema). 01/29/2025 Resolved on 03/11/2025 1 goal linked to scheduled/docume nted intervention 1 goal intervention scheduled/docume nted in this visit Specimen Collection Disciplines: SN Management of specimen samples, including lab draws, stool, urine, & tissue. 02/20/2025 Active - 1 problem intervention scheduled/docume nted in this visit Psychosocial Status Disciplines: SN Care related to depression, depressive symptoms and anxiety. 03/11/2025 Active 1 goal linked to scheduled/docume nted intervention 1 goal intervention scheduled/docume nted in this visit Goals Goal Associated Problem Outcome Goal Met? Visit Notes Patient's pain/physical discomfort will be reduced to the level of patient's stated goal. Description: STG: Patient will verbalize understanding of the pain management plan by 02/04/25. - Goal met 03/11/25 YUNI Herrmann LTG: Patient's pain/physical discomfort will be reduced to the level of patient's stated goal by 03/29/25. - Patient's desired p ain goal is 0. Pain/Physical Discomfort Progressing No Hosptial Readmission Reduction Description: Hospital Readmission Reduction - Hospital Readmission Reduction - High Risk (7 and greater risk factors). Patient's risk number is 9. Hospital Readmission will be avoided during the first 60-day episode of Homecare through frequency of assessment visits. Collaboration of Care Progressing No Patient safety met through collaboration for safe care. Description: Clinicians will communicate patient care and safety needs during episode of care through 03/29/25. Collaboration of Care Met This Shift No Nutritional Status for Optimal Health Description: Patient will demonstrate adequate nutritional status as evidenced by stabilization of weight and intake of required nutrients for optimal health and functioning by 03/29/25. Collaboration of Care Met This Shift No Patient verbalizes understanding of medication regimen Description: STG: Patient and Caregiver will verbalize understanding of medication regimen by 03/23/25. LTG: Patient and caregiver will demonstrate ability to manage medication regimen through 03/29/25. Collaboration of Care Progressing No Patient meets homebound requirements. Description: Patient meets requirements of homebound status as evidenced by cardiac condition, weakness, pain, fall risk, unable to leave home without assistance. Collaboration of Care Met This Shift No Ensure Working Smoke Detectors Description: Patient and Caregiver will verbalize understanding of importance of having working smoke detectors in the home by 02/04/25. Goal met 03/11/25 YUNI Herrmann Oxygen Safety/Precautions Met This Shift No Understanding of Oxygen Safety Description: Patient and Caregiver will verbalize understanding of appropriate oxygen use and safety by 03/29/25. Oxygen Safety/Precautions Progressing No Patient/caregiver maintains a safe environment. Description: STG: Patient/caregiver will verbalize understanding of fall precautions by 03/23/25. LTG: Patient/caregiver will demonstrate ability to maintain a safe environment without injuries/falls through 03/29/25. Fall Precautions Met This Shift No Adequate Knowledge of Anticoagulation Precautions Description: Patient and Caregiver will verbalize understanding of signs/symptoms of abnormal bruising and bleeding by 03/23/25. Patient and Caregiver will verbalize anticoagulation precautions for apixaban (Eliquis) by 03/29/25. Anticoagulation Therapy Met This Shift No Patient will have decreased lower extremity edema Description: - Patient will have decreased lower extremity edema by 03/23/25. Congestive Heart Failure Met This Shift No Patient/Caregiver will verbalize understanding of daily interventions to reduce exacerbations and manage chronic disease Description: - Patient and Caregiver will verbalize understanding of daily interventions to reduce exacerbations and manage chronic disease by 03/29/25. Congestive Heart Failure Progressing No Patient's pulmonary care needs met without signs/symptoms of complications. Description: Patient verbalizes comfort, ease of respiratory effort by 02/04/25. - Goal met 03/11/25 YUNI Herrmann Patient and caregiver will verbalize understanding of managing COPD at home through 03/29/25. Chronic Obstructive Pulmonary Disease Progressing No Patient will understand psychosocial needs Description: Patient and Daughter will verbalize understanding of depression, depressive symptoms and anxiety management by 03/23/25. Patient will show a reduction in symptoms by 03/29/25. Psychosocial Status Progressing No Interventions Intervention Associated Problem/Goal Status Variance Visit Notes Assess Pain Description: -Perform comprehensive pain assessment of patient's level of pain using Numeric pain scale and assess effectiveness of current pain regimen. -Current medical management for pain is medication, rest. If no changes or concerns check complete (see Pain As sessment). Problem:Pain/Physica l Discomfort Goal:Patient's pain/physical discomfort will be reduced to the level of patient's stated goal. Completed Patient continues to have BLE pain. Patient reports the pain is usually tolerable with use of current pain management regimen. Hospitalization Risk Description: Instruct Patient and Caregiver in minimizing hospitalization risk related to More than 1 Hospitalization or ED visit in past 12 months, History of Falls, Heart Failure, Diabetes, COPD, More than 2 Secondary Diagnoses, ADL Assistance Needed and Dyspnea. Problem:Collaboratio n of Care Goal:Hosptial Readmission Reduction Completed Assess Vital Signs Description: Obtain and record vital signs if BP: systolic blood pressure <90 or >160; diastolic blood pressure <60 or >90. Temperature: >100.5 F. Pulse: <60 or >100 bpm. Respiratory Rate: <12 or >28 /min. SPO2: <90%. May check SPO2 as needed for initial assessm ent or dyspnea. Problem:Collaboratio n of Care Goal:Patient safety met through collaboration for safe care. Completed VS WNL for patient at this visit. Insurance Verification Description: Verify with patient/caregiver current insurance coverage. Problem:Collaboratio n of Care Goal:Patient safety met through collaboration for safe care. Completed Patient's coverage status: No change in coverage Care Coordination Description: Clinician to review plan of care with patient/caregivers(s ). Patient/Caregiver(s) agree(s) to plan of care and agrees to participate in care. Problem:Collaboratio n of Care Goal:Patient safety met through collaboration for safe care. Completed Plan for Next Visit Description: Next visit plan summation Problem:Collaboratio n of Care Goal:Patient safety met through collaboration for safe care. Completed Next visit scheduled 03/13/25 for lab collection, disease management teaching, medication teaching and physical assessment. Patient is aware of and agreeable to plan. Advised to call Agency for non-emergent questions/concerns. Skilled Assessment Risk for Injury Description: Evaluate patient's home environment for potential safety risks, and educate Patient and Caregiver on identified safety risks. Problem:Collaboratio n of Care Goal:Patient safety met through collaboration for safe care. Completed Instruct Disaster/Evacuation Plan Description: Instruct in planning and execution of disaster/evacuation plan. Assist Patient and Caregiver in development or revision of plan as indicated. Problem:Collaboratio n of Care Goal:Patient safety met through collaboration for safe care. Completed Plan reviewed. Medication Reconciliation Description: - Review and identify unnecessary therapeutic duplication. Each clinician to perform bottle check weekly on their first visit of the week. - Patient to take medications from medication box set up by Caregiver Problem:Collaboratio n of Care Goal:Patient verbalizes understanding of medication regimen Completed Medication reconciliation performed with weekly bottle check. Medication Management Description: - Assess Patient and Caregiver ability to manage medications. Provide detailed instruction on proper administration and medication management. - Instruct Patient and Caregiver in medication administration, purpose, dosages, preparation, scheduling, side effects, food/drug & drug/drug interactions, storage, and potential complications. Problem:Collaboratio n of Care Goal:Patient verbalizes understanding of medication regimen Completed Home medication management instructed with patient and caregiver. Patient and Caregiver needs reinforcement. understanding of treatment regimen and the importance of adherence. Assess for Presence of Working Smoke Detectors Description: Instruct Patient and Caregiver on importance of having working smoke detectors and how to obtain smoke detectors if not present or non-functional. Problem:Oxygen Safety/Precautions Goal:Ensure Working Smoke Detectors Completed Ensure no smoking materials are present Description: Ensure no smoking materials are present, including both tobacco and vaping. Problem:Oxygen Safety/Precautions Goal:Understanding of Oxygen Safety Completed Report Falls to Provider within 24 Hours Description: Report witnessed or reported falls to provider within 24 hours. Problem:Fall Precautions Goal:Patient/caregiv er maintains a safe environment. Completed Patient reports no recent fall. Assess Appropriateness for Homecare Description: Assess Patient ability to remain safe in current environment. Problem:Fall Precautions Goal:Patient/caregiv er maintains a safe environment. Completed Instruct to Report Bleeding/Bruising Description: Instruct Patient and Caregiver to report signs/symptoms of abnormal bruising and bleeding and medication changes to home health agency. Problem:Anticoagulat ion Therapy Goal:Adequate Knowledge of Anticoagulation Precautions Completed Assess Signs and Symptoms Description: Assess apical pulse, radial pulse, heart rate, subjective reports of dizziness, diaphoresis, nausea, episodes of syncope or near-syncope, and cognitive changes. Problem:Congestive Heart Failure Goal:Patient/Caregiv er will verbalize understanding of daily interventions to reduce exacerbations and manage chronic disease Completed No acute changes identified at this visit. Instruct Daily Weighing Description: - Instruct Patient and Caregiver on daily weights, energy conservation, support hose, signs and symptoms of complications, and when to notify home care agency and/or physician.- Instruct to notify physician/RN if weight gain is 2 pounds or more in 1 day or 5 pounds or more in 1 week.- Instruct to notify physician/RN of blood pressure fluctuations, new or worsening shortness of breath, new or worsening chest pain. Problem:Congestive Heart Failure Goal:Patient/Caregiv er will verbalize understanding of daily interventions to reduce exacerbations and manage chronic disease Completed Patient and family have been doing well with keeping track of daily weights and are able to verbalize when to notify MD of weight gain. Assess Signs and Symptoms Description: - SN assess respiratory rate and effort, lung sounds, changes in vital signs, SpO2, pain, use of accessory muscles.- SN assess for inability to move secretions, air hunger, reduced tolerance for activity, confusion, anxiety. Problem:Chronic Obstructive Pulmonary Disease Goal:Patient's pulmonary care needs met without signs/symptoms of complications. Completed No acute changes identified at this visit. Lab Collection Description: SN to collect CBC with diff and CMP on 03/13/25 for dx: ALICIA and Acute Upper GI Bleed. Fax results to: Dr. Megan Infante and Dr. Katina Beltran . Problem:Specimen Collection Scheduled with variance Defer to next visit Assess Psychosocial Status Description: - Assess for depression, depressive symptoms and anxiety. - Assess support systems and coping. - Refer to [facility] as needed. - Notify physician as needed. Problem:Psychosocial Status Goal:Patient will understand psychosocial needs Completed Patient anxious about his cystoscope procedure tomorrow. Attempted to decrease his anxiety by explaining procedure and what is to be expected with his visit. Explaination appeared to ease some of his anxiety. documented in this encounter Care Teams Therapy Assistant Relationship Specialty Start Date End Date Megan Infante MD [address] [place] [id number] PCP - General FAMILY PRACTICE 04/06/16 Zaki Ortiz MD [address] [facility] [place] [address] Consulting Physician PULMONARY DISEASE 07/12/19 Concetta Acevedo MD [address] [place] [address] Surgeon NEUROLOGICAL SURGERY 12/16/22 Jeff Grace MD [address] [place] [address] Consulting Physician INTERNAL MEDICINE 02/11/23 Brit Gonzáles MD [address] [place] [address] Consulting Physician CARDIOVASCULAR DISEASE 12/29/23 [place] [address] [place] [address] OPHTHALMOLOGY 12/04/24 Corrie Pickard, systems software engineer (Ambulatory) REGISTERED NURSE 12/26/24 documented as of this encounter
--- OUTSIDE RECORDS SUMMARY | 2025-03-12 23:06 | XMS_ITS ---
Author Organization [facility] Address [address] [place], [place] [id number] Care Team Providers Care Master Technician Name Role Phone BARRERA NEGRETE Unavailable [phone] Megan Infante Unavailable Unavailable REASON FOR VISIT *General care-in hospital Encounters Encounter Location Date Provider Diagnosis [address] [id number] 01/04/2025 BARRERA NEGRETE Plan Of Treatment Next Appt Details Provider Name:BARRERA ALFARO, 04/26/2025 09:50:00 AM, [address] [place] [address], [id number], Progress Notes * OBIE SIMS RDOB:1955 (69 yo M)Acc No.[id number]:01/04/2025 Patient: Philly LEXAVIRGILOBIE Provider: Randy NEGRETE :1955 A ge:69 Y S ex:Male Date:01/04/2025 Address:[address] [place], [place] [id number] Subjective: * Chief Complaints: * 1 . *General care-in hospital. * Medical History: Objective: * Vitals: Assessment: Plan: * Treatment: * Billing Information: * Visit Code: * Procedure Codes: * Electronic signature of TITUS NEGRETE DPM on 03/12/2025 at 01:10 PM CDT Sign off status: Pending * Provider: Randy NEGRETE Date: 0 01/04/2025 Generated for Katiana Tylerg/Mindy on: 0 03/12/2025 01:10 PM CDT
--- OUTSIDE RECORDS SUMMARY | 2025-03-12 23:06 | XMS_ITS | Encounter Summary ---
Author Organization [facility] Address [address] [place] [address] Care Team Providers Care Universal Worker Assisted Living Name Role Phone Piyush Pandey MD Unavailable [phone] Megan Infante MD Primary Care Provider [phone] Sharmila Davis APRN, NP-C Unavailable [phone] Linda Block MD Unavailable [phone] Zaki Ortiz MD Unavailable [phone] Concetta Acevedo MD Unavailable [phone] Jeff Grace MD Unavailable Brit Gonzáles MD Unavailable Cirilo Pal MD Unavailable [phone] Corrie Pickard RN Unavailable Unavailab le Encounter Details Date Type Department Care Team (Late st Contact Info) Description 02/22/2023 Hospital Follow-up Call [facility] Cardiovascular Care Unit [address] [place] [address] Cara Potter, RN Social History [...] How often do you attend nondenominational or muslim serv ices? Patient declined 02/16/2023 [...] 3-9 0 12/01/2021 [facility] - Occupational Stress Questionnaire Answer [...] Sex Assigned at Male 09/07/2024 10:18 PM MEDICAL TECHNOLOGIST CHIEF Legal Sex Male 10:01 PM CDT Gender Identity Male 09/07/2024 10:18 PM MEDICAL TECHNOLOGIST CHIEF Sexual Orientation Straight 09/07/2024 10 :18 PM MEDICAL TECHNOLOGIST CHIEF Occupation Industry Job Start Date Job End [...] 03/13/2025 10:00 AM CDT Home Care Visit [address] [address] Dari Payne LPN 03/13/2025 10:00 AM CDT Home Care Visit [address] [address] [place], PT [address] [place], [place] [address] 03/16/2025 9:15 AM CDT Home Care Visit [facility] Home [place] [address] [place] [address] Dari Payne LPN 03/20/2025 9:45 AM CDT Home Care Visit [facility] Care [place] [address] [place] [address] Mallika Dean, YUNI 03/23/2025 12:45 PM CDT Home Care Visit [address] [address] Dari Payne LPN 03/28/2025 8:00 AM CDT Appointment [facility] Home Care [facility] [address] [place] [address] Cecile Hills, RN [phone] (Work) 04/02/2025 11:[address] [facility] [address] [facility] [place] [address] Brit Gonzáles MD [address] [place] [address] 04/12/2025 1:00 PM CDT Office Visit [facility] jorge [address] [place] [address] Lobo Allred, AUTO SPECIALTY SERVICES MANAGER [address] [place], [place] [address] 05/23/2025 11:45 AM CDT Office Visit [facility] [place] [address] [place] [address] Brit Gonzáles MD [address] [place] [address] 08/08/2025 1:45 PM MEDICAL TECHNOLOGIST CHIEF Office Visit [facility] [place] [address] Brit Gonzáles MD [address] [place], [place] [address] documented as of this encounter Goals Goal Patient Goal Type Associated Problems Recent Progress Patient-Stated? Author Family - family caregiver with be involved in care transitions and discharge planning Lifestyle Karen Diane, YUNI documented as of this encounter Visit Diagnoses Not on filedocumented in this encounter Additional Health Concerns Assessment Noted Time PHQ-9 Depression Total Score: 0 12/02/19 22 1:18 PM CDT documented as of this encounter Care Teams Universal Worker Assisted Living Relationship Specialty Start Date End Date Megan Infante MD [address] [facility] [place] [phone] PCP - General FAMILY PRACTICE 04/06/16 Piyush Pandey MD [address] [place], [place] [address] Winston Combination Welder CARDIOVASCULAR DISEASE 04/06/16 12/28/23 Sharmila Davis, NAVY MATERIAL INSPECTOR, AUTO SPECIALTY SERVICES MANAGER-C [address] [place] [address] NURSE PRACTITIONER 01/04/17 04/03/24 Linda Block MD [address] [place], [place] [phone] Winston Combination Welder CLINICAL CARDIAC ELECTROPHYSIOLOGY 02/08/17 04/12/23 Zaki Ortiz MD [address] [place] [address] Consulting Physician PULMONARY DISEASE 07/12/19 Concetta Acevedo MD [address] [place] [address] Surgeon NEUROLOGICAL SURGERY 12/16/22 Jeff Grace MD [address] [place] [address]500[address] Consulting Physician INTERNAL MEDICINE 02/11/23 Brit Gonzáles MD [address] [place], [place] [phone] Consulting Physician CARDIOVASCULAR DISEASE 12/29/23 [place] [address] [place] [address] OPHTHALMOLOGY 12/04/24 Corrie Pickard, powerbuilder (Ambulatory) REGISTERED NURSE 12/26/24 documented as of this encounter
--- OUTSIDE RECORDS SUMMARY | 2025-03-12 23:06 | XMS_ITS | Encounter Summary ---
Author Organization [facility] Address [address] [place] [address] Care Team Providers Care Sales Support Advisor Name Role Phone Piyush Pandey MD Unavailable Megan Infante MD Primary Care Provider [phone] Sharmila Davis APRN, MACHINE PULLER AND LASTER-C Unavailable [phone] Linda Block MD Unavailable [phone] Jeff Grace MD Unavailable Zaki Ortiz MD Unavailable [phone] Concetta Acevedo MD Unavailable [phone] eJff Grace MD Unavailable Brit Gonzáles MD Unavailable Cirilo Pal MD Unavailable [phone] Corrie Pickard RN Unavailable Unavailab Encounter Details Date Type Department Care Team (Late st Contact Info) Description 01/02/2022 Abstract [facility] [address] [place] [address] Sharmila Davis APRN, MACHINE PULLER AND LASTER-C [address] [facility] [address] [place] [address] Social History Tobacco Use Types [...] Sex Assigned at Male 09/07/2024 10:18 PM BAG BUNDLER Legal Sex Male 10:01 PM CDT Gender Identity Male 09/07/2024 10:18 PM BAG BUNDLER Sexual Orientation Straight 09/07/2024 10 :18 PM BAG BUNDLER Occupation Industry Job Start Date Job End [...] 03/13/2025 10:00 AM CDT Home Care Visit [address] [address] Dari Payne LPN 03/13/2025 10:00 AM CDT Home Care Visit [address] [address] [place], PT [address] [place], [place] [address] 03/16/2025 9:15 AM CDT Home Care Visit [address] [address] Dari Payne LPN 03/20/2025 9:45 AM CDT Home Care Visit [place] [address] [place] [address] Mallika Dean, RN 03/23/2025 12:45 PM CDT Home Care Visit [address] [address] Dari Payne LPN 03/28/2025 8:[address] [facility] Home Care [facility] [address] [place] [address] Cecile Hills, RN [phone] (Work) 04/02/2025 11:15 AM CDT Appointment [facility] [address] [facility] [place] [address] Brit Gonzáles MD [address] [place] [address] 04/12/2025 1:00 PM CDT Office Visit [facility] jorge [address] [place] [address] Lobo Allred, MACHINE PULLER AND LASTER [address] [place] [address] 05/23/2025 11:45 AM CDT Office Visit [facility] [place] [address] [place] [address] Brit Gonzáles MD [address] [place] [address] 08/08/2025 1:45 PM BAG BUNDLER Office Visit [facility] [place] [address] Brit Gonzáles MD [address] [place], [place] [address] documented as of this encounter Procedures Procedure [...] CREATININE S/P/B 1.85(A) 0.76 - 1.27 12/31/2021 Jacquie Martel PA-C LABORATORY Final Resul t [...] as of this encounter Care Teams Sales Support Advisor Relationship Specialty Start Date End Date Megan Infante MD [address] [facility] [place] [address] PCP - General FAMILY PRACTICE 04/06/16 Piyush Pandey MD [address] [place] [address] [place] Capacity Planner CARDIOVASCULAR DISEASE 04/06/16 12/28/23 Sharmila Davis APRN, MACHINE PULLER AND LASTER-C [address] [facility] [address] [place] [address] NURSE PRACTITIONER 01/04/17 04/03/24 Linda Block MD [address] [facility] [address] [place] [address] [place] Capacity Planner CLINICAL CARDIAC ELECTROPHYSIOLOGY 02/08/17 04/12/23 Jeff Grace MD [address] [facility] [address] [place] [address] Consulting Physician INTERNAL MEDICINE 02/20/19 3 Zaki Ortiz MD [address] [facility] [address] [place] [address] Consulting Physician PULMONARY DISEASE 07/12/19 Concetta Acevedo MD [address] [place] [address] Surgeon NEUROLOGICAL SURGERY 12/16/22 Jeff Grace MD [address] [place] [address] Consulting Physician INTERNAL MEDICINE 02/11/23 Brit Gonzáles MD [address] [place] [address] Consulting Physician CARDIOVASCULAR DISEASE 12/29/23 [place] [address] [place] [address] OPHTHALMOLOGY 12/04/24 Corrie Pickard, paper slitter (Ambulatory) REGISTERED NURSE 12/26/24 documented as of this encounter
--- OUTSIDE RECORDS SUMMARY | 2025-03-12 23:06 | XMS_ITS ---
Author Organization [facility] Address [address] [place], [place] [address] Care Team Providers Care Food And Beverage Attendant Name Role Phone BARRERA NEGRETE Unavailable [phone] Megan Infante Unavailable Unavailable Allergies No Known Allergies REASON FOR VISIT *General care Medications Medication SIG (Take, Route, Frequency, Duration) Notes Start Date End Date Status warfarin sodium 2 MG Oral Tablet [Coumadin] ORAL warfarin sodium 2 MG Oral Tablet [Coumadin]Original Medicationwarfarin sodium 2 MG Oral Tablet [Coumadin] *Reorder from [employer] for eRx and Interaction Alerts* 09/10/2014 Active Clotrimazole-Bet amethasone 1-0.05 % 1 application Externally Twice a day 07/06/2024 Active glipiZIDE 5 MG Oral Tablet ORAL glipizide 5 MG Oral TabletOriginal Medicationglipizide 5 MG Oral Tablet *Reorder from [employer] for eRx and Interaction Alerts* 09/10/2014 Active dofetilide 0.125 MG Oral Capsule [Tikosyn] ORAL dofetilide 0.125 MG Oral Capsule [Tikosyn]Original Medicationdofetilide 0.125 MG Oral Capsule [Tikosyn] *Reorder from [employer] for eRx and Interaction Alerts* 09/10/2014 Active Vital Signs Height 66.00 in 02/22/2025 Weight 200 lbs 02/22/2025 BMI 32.28 kg/m2 02/22/2025 Height-cm 167.64 cm 02/22/2025 Weight-kg 90.72 kg 02/22/2025 Encounters Encounter Location Date Provider Diagnosis [address] [id number] 02/22/2025 BARRERA NEGRETE Tinea unguium B35.1 ; Pain in right toe(s) M79.674 ; Pain in left toe(s) M79.675 ; Unspecified atherosclerosis of ramona arteries of extremities, bilateral legs I70.203 and Type 2 diabetes mellitus with diabetic peripheral angiopathy without gangrene E11.51 Assessments Encounter Date Diagnosis (ICD Code) Assessment Notes Treatment Notes Treatment Clinical Notes Section Notes 02/22/2025 Tinea unguium (ICD-10 - B35.1) Aseptic [...] Pain in left toe(s) (ICD-10 - M79.675) 02/22/2025 Unspecified atherosclerosis of ramona arteries of extremities, bilateral legs (ICD-10 - [...] careful with old shoes and excessive sweating. Unspecified atherosclerosis of ramona arteries of extremities, bilateral legs Patient educated on risks and aggravating factors of PVD, including conservative treatment options such as a diet and exercise regimen to aid in slowing progression of vascular disease Type 2 diabetes mellitus wit h diabetic [...] to nausea, vomiting, fever. Next Appt Details Provider Name:BARRERA ALFARO, 04/26/2025 09:50:00 AM, [address] [place] [address], [phone], Progress Notes * OBIE SIMS RDOB:1955 (69 yo M)Acc No.[id number]:02/22/2025 Patient: OBIE NORWOOD Provider: Randy NEGRETE :1955 A ge:69 Y S ex:Male Date:02/22/2025 Address:[address] [place], [place] [id number] Subjective: * Chief Complaints: * 1 . *General care. * HPI: H PI: General care P atient presents to the office for diabetic foot care. Patient states that their nails are thickened, elongated and painful. Patient states that it is aggravated by shoe gear. Onset is gradual. Patient is taking prescription blood thinners. Date last seen by Dr. Infante was 01/2025. Initials sea. * ROS: G eneral / Constitutional: Patient denies w eakness. M usculoskeletal: Patient denies a rthritis, joint stiffness. ? P eripheral Vascular: Patient denies b lanching of skin, cold extremities, decreased sensation in extremities. S kin: Patient complains of f ungal nails, discoloration, dry skin, nail changes. N eurologic: Patient denies d izziness, gait abnormality, headache. * Medical History: M edical History Verified. * Family History: F ather: PRN - Father: . M other: PRN - Mother: . * Social History: M igrated Social History: M igrated Social History: Alcohol intake : , History of tobacco use : , Smoking Status : Never smoked. * Medications: T aking glipiZIDE 5 MG Oral Tablet ORAL , Notes to Pharmacist: glipizide 5 MG Oral TabletOriginal Medicationglipizide 5 MG Oral Tablet *Reorder from [employer] for eRx and Interaction Alerts*, Taking dofetilide 0.125 MG Oral Capsule [Tikosyn] ORAL , Notes to Pharmacist: dofetilide 0.125 MG Oral Capsule [Tikosyn]Original Medicationdofetilide 0.125 MG Oral Capsule [Tikosyn] *[facility] and Interaction Alerts*, Taking warfarin sodium 2 MG Oral Tablet [Coumadin] ORAL , Notes to Pharmacist: warfarin sodium 2 MG Oral Tablet [Coumadin]Original Medicationwarfarin sodium 2 MG Oral Tablet [Coumadin] *Reorder from [employer] for eRx and Interaction Alerts*, Taking Clotrimazole-Betamethasone 1-0.05 % Cream 1 application Externally Twice a day , Medication List reviewed and reconciled with the patient * Allergies: N .K.D.A. Objective: * Vitals: W t:200lbs, Wt-k.72 kg, Ht: 66.00 in, Ht-cm: 167.64 cm, BMI:32.28Index, Body Surface Area: 2.05. * Examination: P hysical Examination: V ascular: Dorsalis Pedis pulse noted at 1/4 right foot and 1/4 left foot and Posterior Tibial pulse noted at 1/4 right foot and 1/4 left foot, Capillary refill times noted to be less than three seconds x ten, Temperature gradient noted to be warm to cool to bilateral foot, pedal hair absent to bilateral foot and no varicosities are noted Dermatologic: there are no open lesions, no signs of active clinical infection, no erythema noted, no ecchymoses, nails are elongated incurvated pinser style and thickened and dystrophic with subungual debris x ten. Skin is thin and dry bilateral. Musculoskeletal: there is pain to palpation onto nail plate x ten, no calf pain noted bilaterally, arch height noted at 2/5 non-weight bearing bilaterally, first metatarsophalangeal joint range of motion 30 deg non-weight bearing bilaterally Neurology: protective sensation intact to light touch bilateral digits one through five, negative jolynn's sign bilateral. Assessment: * Assessment: 1. T inea unguium - B35.1 (Primary) 2 . P ain in right toe(s) - M79.674? 3. P ain in left toe(s) - M79.675 4 . U nspecified atherosclerosis of ramona arteries of extremities, bilateral legs - I70.203 5 . T ype 2 diabetes mellitus with diabetic peripheral angiopathy without gangrene - E11.51 Plan: * Treatment: 2. U nspecified atherosclerosis of ramona arteries of extremities, bilateral legs Notes: Patient educated on risks and aggravating factors of PVD, including conservative treatment options such as a diet and exercise regimen to aid in slowing progression of vascular disease ? 3. T ype 2 diabetes mellitus with diabetic [...] not limited to nausea, vomiting, fever. * Billing Information: * Visit Code: 36034 Office Visit, Est Pt., Level 3. * Procedure Codes: * Electronic signature of TITUS NEGRETE DPM on 03/12/2025 at 01:10 PM CDT Sign off status: Pending * Provider: Randy NEGRETE Date: 02/22/2025 Generated for Katiana watson/Kaitlyn/Mindy on: 03/12/2025 01:10 PM CDT History and Physical Notes * HPI (History of Present Illness) Category Sub-Category Detail Notes Category Not es HPI General care Patient presents to the office for diabetic foot care. Patient states that their nails are thickened, elongated and painful. Patient states that it is aggravated by shoe gear. Onset is gradual. Patient is taking prescription blood thinners. Date last seen by Dr. Infante was 01/2025. Initials sea Examination Category Sub-Category Detail Notes Category Not es Physical Examination Vascular: Dorsalis Pedis pulse noted at 1/4 right foot and 1/4 left foot and Posterior Tibial pulse noted at 1/4 right foot and 1/4 left foot, Capillary refill times noted to be less than three seconds x ten, Temperature gradient noted to be warm to cool to bilateral foot, pedal hair absent to bilateral foot and no varicosities are noted Dermatologic: there are no open lesions, no signs of active clinical infection, no erythema noted, no ecchymoses, nails are elongated incurvated pinser style and thickened and dystrophic with subungual debris x ten. Skin is thin and dry bilateral. Musculoskeletal: there is pain to palpation onto nail plate x ten, no calf pain noted bilaterally, arch height noted at 2/5 non-weight bearing bilaterally, first metatarsophalangeal joint range of motion 30 deg non-weight bearing bilaterally Neurology: protective sensation intact to light touch bilateral digits one through five, negative jolynn's sign bilateral
--- NOTE | 2025-03-12 23:12 | ECG_ITS ---
Test Date: 2025-03-12 23:15:34 Measurements Intervals [place] Rate: 67 P: 0 DC: 0 QRS: -40 QRSD: 146 T: 149 QT: 465 QTc: 493 Interpretive Statements ATRIAL FIBRILLATION LEFT AXIS DEVIATION [QRS AXIS < -30] LEFT BUNDLE BRANCH BLOCK [120+ ms QRS DURATION, 80+ ms Q/S IN V1/V2, 85+ ms R IN I/aVL/V5/V6] Compared to ECG 08/28/2024 11:53:14 NO SIGNIFICANT CHANGES Electronically Signed On 03-13-2025 15:57:51 CDT by Swati Goode M.D.
--- OUTSIDE RECORDS SUMMARY | 2025-03-12 23:40 | XMS_ITS | Encounter Summary ---
Author Organization [facility] Address [address] [place] [address] Care Team Providers Care Grinding Room Inspector Name Role Phone Piyush Pandey MD Unavailable [phone] Megan Infante MD Primary Care Provider [phone] Sharmila Davis APRN, NP-C Unavailable [phone] Linda Block MD Unavailable [phone] Zaki Ortiz MD Unavailable [phone] Concetta Acevedo MD Unavailable [phone] Jeff Grace MD Unavailable Brit Gonzáles MD Unavailable Cirilo Pal MD Unavailable [phone] Corrie Pickard RN Unavailable Unavailab le Encounter Details Date Type Department Care Team (Late st Contact Info) Description 02/22/2023 Hospital Follow-up Call [facility] Cardiovascular Care Unit [address] [place] [address] Cara Potter, RN Social History [...] How often do you attend hoahaoism or hindu serv ices? Patient declined 02/16/2023 [...] move on to questions 3-9 0 12/01/2021 [facility] - Occupational Stress Questionnaire Answer Date [...] Sex Assigned at Male 09/07/2024 10:18 PM TANK BOTTOM ASSEMBLER Legal Sex Male 10:01 PM CDT Gender Identity Male 09/07/2024 10:18 PM TANK BOTTOM ASSEMBLER Sexual Orientation Straight 09/07/2024 10 :18 PM TANK BOTTOM ASSEMBLER Occupation Industry Job Start Date Job [...] 03/13/2025 10:00 AM CDT Home Care Visit [address] [address] Dari Payne LPN 03/13/2025 10:00 AM CDT Home Care Visit [address] [address] [place], PT [address] [place], [place] [address] 03/16/2025 9:15 AM CDT Home Care Visit [facility] Home [place] [address] [place] [address] Dari Payne LPN 03/20/2025 9:45 AM CDT Home Care Visit [facility] [place] [address] [place] [address] Mallika Dean, YUNI 03/23/2025 12:45 PM CDT Home Care Visit [address] [address] Dari Payne LPN 03/28/2025 8:00 AM CDT Appointment [facility] Home Care [facility] [address] [place] [address] Cecile Hills, RN [phone] (Work) 04/02/2025 11:15 AM CDT Appointment [facility] [address] [facility] [place] [address] Brit Gonzáles MD [address] [place] [address] 04/12/2025 1:00 PM CDT Office Visit [facility] jorge [address] [place] [address] Lobo Allred, RISK MANAGEMENT ANALYST [address] [place], [place] [address] 05/23/2025 11:45 AM CDT Office Visit [facility] [place] [address] [place] [address] Brit Gonzáles MD [address] [place] [address] 08/08/2025 1:45 PM TANK BOTTOM ASSEMBLER Office Visit [facility] [place] [address] Brit Gonzáles MD [address] [place], [place] [address] documented as of this encounter Goals Goal [...] documented as of this encounter Care Teams Grinding Room Inspector Relationship Specialty Start Date End Date Megan Infante MD [address] [place] [address] PCP - General FAMILY PRACTICE 04/06/16 Piyush Pandey MD [address] [place], [place] [address] Arion Grassland Conservationist CARDIOVASCULAR DISEASE 04/06/16 12/28/23 Sharmila Davis, FUNCTIONAL ARCHITECT, RISK MANAGEMENT ANALYST-C [address] [place] [address] NURSE PRACTITIONER 01/04/17 04/03/24 Linda Block MD [address] [place], [place] [phone] Arion Grassland Conservationist CLINICAL CARDIAC ELECTROPHYSIOLOGY 02/08/17 04/12/23 Zaki Ortiz MD [address] [place] [address] Consulting Physician PULMONARY DISEASE 07/12/19 Concetta Acevedo MD [address] [place] [address] Surgeon NEUROLOGICAL SURGERY 12/16/22 Jeff Grace MD [address] [place] [address]36[address] Consulting Physician INTERNAL MEDICINE 02/11/23 Brit Gonzáles MD [address] [place], [place] [phone] Consulting Physician CARDIOVASCULAR DISEASE 12/29/23 [place] [address] [place] [address] OPHTHALMOLOGY 12/04/24 Corrie Pickard, custody officer (Ambulatory) REGISTERED NURSE 12/26/24 documented as of this encounter
--- OUTSIDE RECORDS SUMMARY | 2025-03-12 23:40 | XMS_ITS | Encounter Summary ---
Author Organization [facility] Address [address] [place] [address] Care Team Providers Care Network Operations Lead Name Role Phone Piyush Pandey MD Unavailable [phone] Megan Infante MD Primary Care Provider [phone] Sharmila Davis APRN, RESIDENT CARE SUPERVISOR-C Unavailable Linda Block MD Unavailable Jeff Grace MD Unavailable Zaki Ortiz MD Unavailable [phone] Concetta Acevedo MD Unavailable [phone] Jeff Grace MD Unavailable Brit Gonzáles MD Unavailable Cirilo Pal MD Unavailable [phone] Corrie Pickard RN Unavailable Unavailab Encounter Details Date Type Department Care Team (Late st Contact Info) Description 01/21/2023 Abstract [facility] [address] [place] [address] Sharmila Davis APRN, RESIDENT CARE SUPERVISOR-C [address] [facility] [address] [place] [address] Social History Tobacco Use Types [...] slept in a senior living (including now)? No 12/28/2022 Sex and Gender Information Value Date Recorded Sex Assigned at Male 09/07/2024 10:18 PM PILL MAKER Legal Sex Male 10:01 PM CDT Gender Identity Male 09/07/2024 10:18 PM PILL MAKER Sexual Orientation Straight 09/07/2024 10 :18 PM PILL MAKER Occupation Industry Job Start Date Job [...] 03/13/2025 10:00 AM CDT [facility] [address] [place] [address] Dari Payne LPN 03/13/2025 10:00 AM CDT [facility] Visit [facility] [address] [place] [address] Spring Gilbert, PT [address] [place] [address] 03/16/2025 9:15 AM CDT [facility] [address] [place] [address] Dari Payne LPN 03/20/2025 9:45 AM CDT Home Care Visit [place] [address] [place] [address] Mallika Dean, RN 03/23/2025 12:45 PM CDT Home Care Visit [place] [address] [place] [address] Dari Payne LPN 03/28/2025 8:00 AM CDT Appointment [place] [address] [place] [address] Cecile Hills, RN [phone] (Work) 04/02/2025 11:15 AM CDT Appointment [facility] [address] [facility] [place] [address] Brit Gonzáles MD [address] [place] [address] 04/12/2025 1:00 PM CDT [facility] [address] [place] [address] Lobo Allred, RESIDENT CARE SUPERVISOR [address] [place] [address] 05/23/2025 11:45 AM CDT Office Visit [facility] [place] [address] [place] [address] Brit Gonzáles MD [address] [place] [address] 08/08/2025 1:45 PM PILL MAKER Office Visit [facility] [place] [address] [place] [address] Brit Gonzáles MD [address] [place], [place] [phone] documented as of this encounter Visit Diagnoses Not on filedocumented in this encounter Additional Health Concerns Assessment Noted Time PHQ-9 Depression Total Score: 0 12/02/19 22 1:18 PM CDT documented as of this encounter Care Teams Network Operations Lead Relationship Specialty Start Date End Date Megan Infante MD [address] [place] [address] PCP - General FAMILY PRACTICE 04/06/16 Piyush Pandey MD [address] [place] [phone] [place] Sprayer Machine CARDIOVASCULAR DISEASE 04/06/16 12/28/23 Sharmila Davis APRN, RESIDENT CARE SUPERVISOR-C [address] [place] [address] 47 [place] [address] NURSE PRACTITIONER 01/04/17 04/03/24 Linda Block MD [address] [place] [address] [phone] [place] [employer] CLINICAL CARDIAC ELECTROPHYSIOLOGY 02/08/17 04/12/23 Jeff Grace MD [address] [facility] [address] [place] [address] Consulting Physician INTERNAL MEDICINE 02/20/19 3 Zaki Ortiz MD 619 [facility] [address] [place] [address] Consulting Physician PULMONARY DISEASE 07/12/19 Concetta Acevedo MD [address] [place] [address] [phone] Surgeon NEUROLOGICAL SURGERY 12/16/22 Jeff Grace MD [address] [place] [address] Consulting Physician INTERNAL MEDICINE 02/11/23 Brit Gonzáles MD [address] [place] [address] Consulting Physician CARDIOVASCULAR DISEASE 12/29/23 [place] [address] [place], [place] [id number] OPHTHALMOLOGY 12/04/24 Corrie Pickard, signal technician (Ambulatory) REGISTERED NURSE 12/26/24 documented as of this encounter
--- OUTSIDE RECORDS SUMMARY | 2025-03-12 23:41 | XMS_ITS | Encounter Summary ---
Author Organization [facility] Address [address] [place] [address] Care Team Providers Care Mincemeat Maker Name Role Phone Megan Infante MD Primary Care Provider [phone] Zaki Ortiz MD Unavailable [phone] Concetta Acevedo MD Unavailable [phone] Jeff Grace MD Unavailable Brit Gonzáles MD Unavailable Cirilo Pal MD Unavailable [phone] Corrie Pickard RN Unavailable Unavailab le Encounter Details Date Type Department Care Team (Late st Contact Info) Description 02/28/2025 [employer] Message Enc [facility] [address] [place] [address] Mychart, [facility] Provider Labs results Social History Tobacco Use [...] from your doctor or pharmacy? Often 01/10/2025 [facility] Utilities Answer Date Recorded In the past 12 months has th e [employer], gas, oil, or water company threatened to [...] How often do you attend chur or evangelical services? Never 01/10/2025 Do you belong to [...] move on to questions 3-9 0 12/01/2021 [facility] - Occupational Stress Questionnaire Answer Date [...] a detention (including now)? Patient declined 07/12/2023 Housing Stability [...] time in the past 12 m [facility], were you homeless or living in a detention (including now)? No 02/28/2025 Sex and Gender Information Value Date Recorded Sex Assigned at Male 09/07/2024 10:18 PM PROPERTY SPECIALIST Legal Sex Male 10:01 PM CDT Gender Identity Male 09/07/2024 10:18 PM PROPERTY SPECIALIST Sexual Orientation Straight 09/07/2024 10 :18 PM PROPERTY SPECIALIST Occupation Industry Job Start Date Job End [...] PM CDT Esperanza Storm RN Active * Jamison Suicide Severity Rating Scale (Screener/Recent Self-Report) Question [...] or making decisions? No 02/28/2025 8:17 PM SKYLART Tip White RN A ctive * Because [...] 03/13/2025 10:00 AM CDT Home Care Visit [facility] Home Care [facility] [address] [place] [address] Dari Payne LPN 03/13/2025 10:00 AM CDT Home Care Visit [facility] Home Care [facility] [address] [place] [address] Spring Gilbert, PT [address] [place], [place] [address] 03/16/2025 9:15 AM CDT Home Care Visit [facility] [address] [place] [address] Dari Payne LPN 03/20/2025 9:45 AM CDT Home Care Visit [facility] [address] [place] [address] Mallika Dean, RN 03/23/2025 12:45 PM CDT Home Care Visit [facility] [address] [place] [address] Dari Payne LPN 03/28/2025 8:00 AM CDT Appointment [facility] [address] [place] [address] Cecile Hills, RN [phone] (Work) 04/02/2025 11:15 AM CDT Appointment [facility] [address] [facility] [place] [place] [address] Brit Gonzáles MD [address] [place] [address] 04/12/2025 1:00 PM CDT [facility] [address] [place] [address] Lobo Allred, UTILITY SPECIALIST [address] [place] [address] 05/23/2025 11:45 AM CDT Office [facility] [place] [phone] Brit Gonzáles MD [address] [place] [address] 08/08/2025 1:45 PM PROPERTY SPECIALIST [facility] [address] [place] [address] Brit Gonzáles MD [address] [place] [address] documented as of this encounter Goals Goal [...] documented as of this encounter Care Teams Mincemeat Maker Relationship Specialty Start Date End Date Megan Infante MD [address] [place] [phone] PCP - General FAMILY PRACTICE 04/06/16 Zaki Ortiz MD [address] [place] [phone] Consulting Physician PULMONARY DISEASE 07/12/19 Concetta Acevedo MD [address] [place] [address] Surgeon NEUROLOGICAL SURGERY 12/16/22 Jeff Grace MD [address] [place] [address] Consulting Physician INTERNAL MEDICINE 02/11/23 Brit Gonzáles MD [address] [place] [address] Consulting Physician CARDIOVASCULAR DISEASE 12/29/23 [place] [address] [facility] [place] [address] OPHTHALMOLOGY 12/04/24 Corrie Pickard, tapper balance wheel screw hole (Ambulatory) REGISTERED NURSE 12/26/24 documented as of this encounter
--- OUTSIDE RECORDS SUMMARY | 2025-03-12 23:41 | XMS_ITS | Encounter Summary ---
Author Organization [facility] Address [address] [place] [address] Care Team Providers Care Die Finisher Forging Name Role Phone Megan Inafnte MD Primary Care Provider [phone] Zaki Ortiz MD Unavailable [phone] Concetta Acevedo MD Unavailable [phone] Jeff Grace MD Unavailable Brit Gonzáles MD Unavailable Cirilo Pal MD Unavailable [phone] Corrie Pickard RN Unavailable Unavailab le Encounter Details Date Type Department Care Team (Late st Contact Info) Description 03/11/2025 Plan of Care Documentation [facility] Home Care [facility] [address] [place] [address] Social History Tobacco Use Types Packs/Day Years [...] from your doctor or pharmacy? Often 01/10/2025 [facility] Utilities Answer Date Recorded In the past 12 months has th e [employer], gas, oil, or water company threatened to [...] often do you attend chur ch or islam services? Never 01/10/2025 Do you belong to [...] 0 12/01/2021 [facility] - Occupational Stress Questionnaire Answer Date [...] any time in the past 12 m [facility], were you homeless or living in a fdc (including now)? No 02/28/2025 Sex and Gender Information Value Date Recorded Sex Assigned at Male 09/07/2024 10:18 PM AREA OPERATIONS DIRECTOR Legal Sex Male 10:01 PM CDT Gender Identity Male 09/07/2024 10:18 PM AREA OPERATIONS DIRECTOR Sexual Orientation Straight 09/07/2024 10 :18 PM AREA OPERATIONS DIRECTOR Occupation Industry Job Start Date Job End [...] 03/13/2025 10:00 AM CDT Home Care Visit [facility] Home Care [address] [address] Dari Payne LPN 03/13/2025 10:00 AM CDT Home Care Visit [facility] [address] [place] [address] Spring Gilbert, PT [address] [place] [address] 03/16/2025 9:15 AM CDT Home Care Visit [facility] [address] [place] [address] Dari Payne LPN 03/20/2025 9:45 AM CDT Home Care Visit [facility] [address] [place] [address] Mallika Dean, RN 03/23/2025 12:45 PM CDT Home Care Visit [facility] [address] [place] [address] Dari Payne LPN 03/28/2025 8:00 AM CDT Appointment [facility] [address] [place] [address] Cecile Hills, RN [phone] (Work) 04/02/2025 11:15 AM CDT Appointment [facility] [address] [facility] [place] [address] Brit Gonzáles MD [address] [place] [address] 04/12/2025 1:00 PM CDT Office Visit [facility] [address] [place] [address] [phone] Lobo Allred, SHOE IRONER [address] [place] [address] 05/23/2025 11:45 AM CDT Office Visit [facility] [place] [address] [place] [address] Brit Gonzáles MD [address] [place], [place] [address] 08/08/2025 1:45 PM AREA OPERATIONS DIRECTOR Office Visit [facility] [place] [address] [place] [address] Brit Gonzáles MD [address] [place], [place] [address] documented as of this encounter Goals Goal [...] documented as of this encounter Care Teams Die Finisher Forging Relationship Specialty Start Date End Date Megan Infante MD [address] [place] [address] PCP - General FAMILY PRACTICE 04/06/16 Zaki Ortiz MD [address] [place] [phone] Consulting Physician PULMONARY DISEASE 07/12/19 Concetta Acevedo MD [address] [place] [address] [phone] Surgeon NEUROLOGICAL SURGERY 12/16/22 Jeff Grace MD [address] [place] [address] Consulting Physician INTERNAL MEDICINE 02/11/23 Brit Gonzáles MD [address] [place] [address] Consulting Physician CARDIOVASCULAR DISEASE 12/29/23 [place] [address] [place] [address] OPHTHALMOLOGY 12/04/24 Corrie Pickard, finishing wire sawyer (Ambulatory) REGISTERED NURSE 12/26/24 documented as of this encounter
--- OUTSIDE RECORDS SUMMARY | 2025-03-12 23:41 | XMS_ITS | Encounter Summary ---
Author Organization [facility] Address [address] [place] [address] Care Team Providers Care Digital Tech Name Role Phone Megan Infante MD Primary Care Provider [phone] Zaki Ortiz MD Unavailable [phone] Concetta Acevedo MD Unavailable [phone] Jeff Grace MD Unavailable Brit Gonzáles MD Unavailable Cirilo Pal MD Unavailable [phone] Corrie Pickard RN Unavailable Unavailab Reason for Visit * Auth/Cert (Routine) Specialty Diagnoses / Procedures Referred By Contac t Referred To Contact Home Health Services Referral ID Status Reason Start Date Expiration Date Visits Re quested Visits Authorized [id number] 1 1 Encounter Details Date Type Department Care Team (Latest Contact Info) Description 03/11/2025 9:30 AM CDT Home Care Visit [facility] Home Care [facility] [address] [place] [address] Mallika Dean, RN SN OASIS RESUMPTION OF [...] from your doctor or pharmacy? Often 01/10/2025 [facility] Utilities Answer Date Recorded In the past 12 months has e [employer], gas, oil, or water [employer] threatened to shut off services in your [...] often do you attend chur ch or lutheran services? Never 01/10/2025 Do you belong to [...] move on to questions 3-9 0 12/01/2021 [facility] - Occupational Stress [...] a custodial (including now)? Patient declined 07/12/2023 Housing Stability [...] time in the past 12 m [facility], were you homeless or living in a custodial (including now)? No 02/28/2025 Sex and Gender Information Value Date Recorded Sex Assigned at Male 09/07/2024 10:18 PM BALL TRUING MACHINE OPERATOR Legal Sex Male 10:01 PM CDT Gender Identity Male 09/07/2024 10:18 PM BALL TRUING MACHINE OPERATOR Sexual Orientation Straight 09/07/2024 10 :18 PM BALL TRUING MACHINE OPERATOR Occupation Industry Job Start Date Job [...] 03/13/2025 10:00 AM CDT Home Care Visit [address] [address] Dari Payne LPN 03/13/2025 10:00 AM CDT Home Care Visit [address] [address] Spring Gilbert, PT [address] [place] [address] 03/16/2025 9:15 AM CDT Home Care Visit [address] [address] Dari Payne LPN 03/20/2025 9:45 AM CDT Home Care Visit [address] [address] Mallika Dean, RN 03/23/2025 12:45 PM CDT Home Care Visit [address] [address] Dari Payne LPN 03/28/2025 8:00 AM CDT Appointment [address] [address] Cecile Hills, RN [phone] (Work) 04/02/2025 11:15 AM CDT Appointment [facility] [address] [facility] [place] [address] Brit Gonzáles MD [address] [place], [place] [address] 04/12/2025 1:00 PM CDT Office Visit [facility] jorge [address] [place] [address] Lobo Allred, TYRE FINISHER AND EXAMINER [address] [place] [address] 05/23/2025 11:45 AM CDT Office Visit [facility] [place] [address] [place] [address] Brit Gonzáles MD [address] [place], [place] [address] 08/08/2025 1:45 PM BALL TRUING MACHINE OPERATOR Office Visit [facility] [place] [address] [place] [address] Brit Gonzáles MD [address] [place], [place] [address] documented as of this encounter Goals Goal [...] - OASIS Resum ption of Care Discipline -Halfway Problems Problem Description Start Date Status Goals [...] support systems and coping. - Refer to PUBLIC POLICY MEDIATOR as needed. - Notify physician as needed. Problem:Psychosocial Status Goal:Patient will understand psychosocial needs Completed Patient anxious about his cystoscope procedure tomorrow. Attempted to decrease his anxiety by explaining procedure and what is to be expected with his visit. Explaination appeared to ease some of his anxiety. documented in this encounter Care Teams Digital Tech Relationship Specialty Start Date End Date Megan Infante MD [address] [place] [phone] PCP - General FAMILY PRACTICE 04/06/16 Zaki Ortiz MD [address] [facility] [place] [address] Consulting Physician PULMONARY DISEASE 07/12/19 Concetta Acevedo MD [address] [place] [address] Surgeon NEUROLOGICAL SURGERY 12/16/22 Jeff Grace MD [address] [place] [address] Consulting Physician INTERNAL MEDICINE 02/11/23 Brit Gonzáles MD [address] [place] [address] Consulting Physician CARDIOVASCULAR DISEASE 12/29/23 [place] [address] [place] [address] OPHTHALMOLOGY 12/04/24 Corrie Pickard, lithoplate maker (Ambulatory) REGISTERED NURSE 12/26/24 documented as of this encounter
--- OUTSIDE RECORDS SUMMARY | 2025-03-12 23:41 | XMS_ITS | Encounter Summary ---
Author Organization [facility] Address [address] [place] [address] Care Team Providers Care Brim Stretcher Name Role Phone Piyush Pandey MD Unavailable [phone] Megan Infante MD Primary Care Provider [phone] Sharmila Davis APRN, MANAGER MANUFACTURING-C Unavailable Linda Block MD Unavailable [phone] Jeff Grace MD Unavailable Zaki Ortiz MD Unavailable [phone] Concetta Acevedo MD Unavailable [phone] Jeff Grace MD Unavailable Brit Gonzáles MD Unavailable Cirilo Pal MD Unavailable [phone] Corrie Pickard RN Unavailable Unavailab Encounter Details Date Type Department Care Team (Late st Contact Info) Description 01/02/2022 Abstract [facility] [address] [place] [address] Sharmila Davis APRN, MANAGER MANUFACTURING-C [address] [facility] [address] [place] [address] Social History Tobacco Use Types [...] Sex Assigned at Male 09/07/2024 10:18 PM HAND STRAIGHTENER Legal Sex Male 10:01 PM CDT Gender Identity Male 09/07/2024 10:18 PM HAND STRAIGHTENER Sexual Orientation Straight 09/07/2024 10 :18 PM HAND STRAIGHTENER Occupation Industry Job Start Date Job End [...] 03/13/2025 10:00 AM CDT Home Care Visit [address] [address] Dari Payne LPN 03/13/2025 10:00 AM CDT Home Care Visit [address] [address] Spring Gilbert, PT [address] [place], [place] [address] 03/16/2025 9:15 AM CDT Home Care Visit [address] [address] Dari Payne LPN 03/20/2025 9:45 AM CDT Home Care Visit [place] [address] [place] [address] Mallika Dean, RN 03/23/2025 12:45 PM CDT Home Care Visit [address] [address] Dari Payne LPN 03/28/2025 8:00 AM CDT Appointment [facility] Home Care [facility] [address] [place] [address] Cecile Hills, RN [phone] (Work) 04/02/2025 11:15 AM CDT Appointment [facility] [address] [facility] [place] [address] Brit Gonzáles MD [address] [place] [address] 04/12/2025 1:00 PM CDT Office Visit [facility] jorge [address] [place] [address] Lobo Allred, MANAGER MANUFACTURING [address] [place] [address] 05/23/2025 11:45 AM CDT Office Visit [facility] [place] [address] [place] [address] Brit Gonzáles MD [address] [place] [address] 08/08/2025 1:45 PM HAND STRAIGHTENER Office Visit [facility] [place] [address] Brit Gonzáles MD [address] [place], [place] [address] documented as of this encounter Procedures Procedure [...] documented as of this encounter Care Teams Brim Stretcher Relationship Specialty Start Date End Date Megan Infante MD [address] [facility] [place] [address] PCP - General FAMILY PRACTICE 04/06/16 Piyush Pandey MD [address] [place] [address] [place] Supervisor Personnel Clerks CARDIOVASCULAR DISEASE 04/06/16 12/28/23 Sharmila Davis APRN, MANAGER MANUFACTURING-C [address] [facility] [address] [place] [address] NURSE PRACTITIONER 01/04/17 04/03/24 Linda Block MD [address] [facility] [address] [place] [address] [place] Supervisor Personnel Clerks CLINICAL CARDIAC ELECTROPHYSIOLOGY 02/08/17 04/12/23 Jeff Grace MD [address] [facility] [address] [place] [address] Consulting Physician INTERNAL MEDICINE 02/20/19 3 Zaki Ortiz MD [address] [facility] [address] [place] [address] Consulting Physician PULMONARY DISEASE 07/12/19 Concetta Acevedo MD [address] [place] [address] Surgeon NEUROLOGICAL SURGERY 12/16/22 Jeff Grace MD [address] [place] [address] Consulting Physician INTERNAL MEDICINE 02/11/23 Brit Gonzáles MD [address] [place] [address] Consulting Physician CARDIOVASCULAR DISEASE 12/29/23 [place] [address] [place] [address] OPHTHALMOLOGY 12/04/24 Corrie Pickard, revenue enforcement agent (Ambulatory) REGISTERED NURSE 12/26/24 documented as of this encounter
--- OUTSIDE RECORDS SUMMARY | 2025-03-12 23:41 | XMS_ITS | Encounter Summary ---
Author Organization [facility] Address [address] [place] [address] Care Team Providers Care Distance Learning Coordinator Name Role Phone Megan Infante MD Primary Care Provider [phone] Zaki Ortiz MD Unavailable [phone] Concetta Acevedo MD Unavailable + [phone] Jeff Grace MD Unavailable Brit Gonzáles MD Unavailable Cirilo Pal MD Unavailable [phone] Corrie Pickard RN Unavailable Unavailab le Encounter Details Date Type Department Care Team (Late st Contact Info) Description 03/12/2025 Orders Only [facility] [address] [place] [address] Brennan Hernandez MD [address] [place] [address] Social History Tobacco Use Types [...] from your doctor or pharmacy? Often 01/10/2025 [facility] Utilities Answer Date Recorded In the past 12 months has [facility] [place] [employer], [employer], or water [employer] threatened to shut off services in your [...] often do you attend chur ch or alevism services? Never 01/10/2025 Do you belong to [...] Sex Assigned at Male 09/07/2024 10:18 PM ASSISTANT FITNESS MANAGER Legal Sex Male 10:01 PM CDT Gender Identity Male 09/07/2024 10:18 PM ASSISTANT FITNESS MANAGER Sexual Orientation Straight 09/07/2024 10 :18 PM ASSISTANT FITNESS MANAGER Occupation Industry Job Start Date Job End [...] 03/13/2025 10:00 AM CDT Home Care Visit [facility] [address] [place] [address] Dari Payne LPN 03/13/2025 10:00 AM CDT Home Care Visit [facility] [address] [place] [address] Spring Gilbert, PT [address] [place], [place] [address] 03/16/2025 9:15 AM CDT Home Care Visit [place] [address] [place] [address] Dari Payne LPN 03/20/2025 9:45 AM CDT Home Care Visit [facility] [address] [place] [address] Mallika Dean, RN 03/23/2025 12:45 PM CDT Home Care Visit [facility] [address] [place] [address] Dari Payne LPN 03/28/2025 8:00 AM CDT Appointment [facility] [address] [place] [address] Cecile Hills, RN [phone] (Work) 04/02/2025 11:15 AM CDT Appointment [facility] [address] [facility] [address] [place] [address] Brit Gonzáles MD [address] [place] [address] 04/12/2025 1:00 PM CDT [facility] Erariel patel [address] [place] [address] Lobo Allred, [place] INTERN [address] [place] [address] 05/23/2025 11:45 AM CDT Office Visit [facility] [place] [address] [place] [address] Brit Gonzáles MD [address] [place] [address] 08/08/2025 1:45 PM ASSISTANT FITNESS MANAGER Office Visit [facility] [place] [address] [place] [address] Brit Gonzáles MD [address] [place], [place] [phone] Scheduled Orders Name Type Priority Associated Diagnoses [...] documented as of this encounter Care Teams Distance Learning Coordinator Relationship Specialty Start Date End Date Megan Infante MD [address] [place] [address] PCP - General FAMILY PRACTICE 04/06/16 Zaki Ortiz MD [address] [place] [address] Consulting Physician PULMONARY DISEASE 07/12/19 Concetta Acevedo MD [address] [place] [address] Surgeon NEUROLOGICAL SURGERY 12/16/22 Jeff Grace MD [address] [place] [address] Consulting Physician INTERNAL MEDICINE 02/11/23 Brit Gonzáles MD [address] [place] [address] Consulting Physician CARDIOVASCULAR DISEASE 12/29/23 [place] [address] [place] [address] OPHTHALMOLOGY 12/04/24 Corrie Pickard, senior field service engineer (Ambulatory) REGISTERED NURSE 12/26/24 documented as of this encounter
--- OUTSIDE RECORDS SUMMARY | 2025-03-12 23:41 | XMS_ITS | Encounter Summary ---
Author Organization [facility] Address [address] [place] [address] Care Team Providers Care Mechanic And Welder Name Role Phone Megan Infante MD Primary Care Provider [phone] Zaki Ortiz MD Unavailable [phone] Concetta Acevedo MD Unavailable + [phone] Jeff Grace MD Unavailable Brit Gonzáles MD Unavailable Cirilo Pal MD Unavailable [phone] Corrie Pickard RN Unavailable Unavailab le Encounter Details Date Type Department Care Team (Late st Contact Info) Description 02/13/2025 Hospital Follow-up Call [facility] [address] [place] [address] Cara oPtter RN Social History Tobacco Use Types Packs/Day [...] from your doctor or pharmacy? Often 01/10/2025 [facility] Utilities Answer Date Recorded In the past 12 months has th e [employer], gas, oil, or water company threatened to [...] How often do you attend chur or oriental orthodox services? Never 01/10/2025 Do you belong to [...] move on to questions 3-9 0 12/01/2021 [facility] Occupat ional [facility] - Occupational Stress Questionnaire Answer Date [...] senior care (including now)? Patient declined 07/12/2023 Housing Stability [...] you homeless or living in a senior care (including now)? No 02/07/2025 Sex and Gender Information Value Date Recorded Sex Assigned at Male 09/07/2024 10:18 PM TECHNICIAN AUTOMATED EQUIPMENT Legal Sex Male 10:01 PM CDT Gender Identity Male 09/07/2024 10:18 PM TECHNICIAN AUTOMATED EQUIPMENT Sexual Orientation Straight 09/07/2024 10 :18 PM TECHNICIAN AUTOMATED EQUIPMENT Occupation Industry Job Start Date Job End [...] 10:00 AM CDT Home Care Visit [facility] Home Care [address] [address] Dari Payne LPN 03/13/2025 10:00 AM CDT Home Care Visit [facility] [address] [place] [address] Spring Gilbert, PT [address] [place] [address] 03/16/2025 9:15 AM CDT Home Care Visit [facility] [address] [place] [address] Dari Payne LPN 03/20/2025 9:45 AM CDT Home Care Visit [facility] [address] [place] [address] Mallika Dean, RN 03/23/2025 12:45 PM CDT Home Care Visit [facility] [address] [place] [address] Dari Payne LPN 03/28/2025 8:00 AM CDT Appointment [facility] [address] [place] [address] Cecile Hills, RN [phone] (Work) 04/02/2025 11:15 AM CDT Appointment [facility] [address] [facility] [place] [address] Brit Gonzáles MD [address] [place] [address] 04/12/2025 1:00 PM CDT [facility] [address] [place] [address] Lobo Allred, PENAL OFFICER [address] [place] [address] 05/23/2025 11:45 AM CDT [facility] [address] [place] [address] Brit Gonzáles MD [address] [place] [address] 08/08/2025 1:45 PM TECHNICIAN AUTOMATED EQUIPMENT Office Visit [facility] [place] [address] [place] [address] Brit Gonzáles MD [address] [place] [address] documented as of this encounter Goals Goal [...] documented as of this encounter Care Teams Mechanic And Welder Relationship Specialty Start Date End Date Megan Infante MD [address] [place] [phone] PCP - General FAMILY PRACTICE 04/06/16 Zaki Ortiz MD [address] [place] [phone] Consulting Physician PULMONARY DISEASE 07/12/19 Concetta Acevedo MD [address] [place] [id number] Surgeon NEUROLOGICAL SURGERY 12/16/22 Jeff Grace MD [address] [place] [phone] Consulting Physician INTERNAL MEDICINE 02/11/23 Brit Gonzáles MD [address] [place] [address] Consulting Physician CARDIOVASCULAR DISEASE 12/29/23 [place] [address] [place] [address] OPHTHALMOLOGY 12/04/24 Corrie Pickard, retail tire sales manager (Ambulatory) REGISTERED NURSE 12/26/24 documented as of this encounter
--- OUTSIDE RECORDS SUMMARY | 2025-03-12 23:42 | XMS_ITS | Encounter Summary ---
Author Organization [facility] Address [facility] [place] [address] Care Team Providers Care Pearl Hand Name Role Phone Piyush Pandey MD Unavailable [phone] Megan Infante MD Primary Care Provider [phone] Sharmila Davis APRN, NP-C Unavailable [phone] Linda Block MD Unavailable [phone] Jeff Grace MD Unavailable Zaki Ortiz MD Unavailable [phone] Concetta Acevedo MD Unavailable + [phone] Jeff Grace MD Unavailable Brit Gonzáles MD Unavailable Cirilo Pal MD Unavailable [phone] Corrie Pickard RN Unavailable Unavailab le Encounter Details Date Type Department Care Team (Late st Contact Info) Description 01/28/2019 Abstract [facility] [address] [place] [address] , Generic Conversion, Social History Tobacco Use Types Packs/Day Years Used Date Smoking Tobacco: Former Smokeless Tobacco: Former Chew Alcohol Use Standard Drinks/Week Comments Yes 0 (1 standard drink = 0.6 oz pur e alcohol) 6 per week Sex and Gender Information Value Date Recorded Sex Assigned at Male 09/07/2024 10:18 PM DINING ROOM COORDINATOR Legal Sex Male 10:01 PM CDT Gender Identity Male 09/07/2024 10:18 PM DINING ROOM COORDINATOR Sexual Orientation Straight 09/07/2024 10 :18 PM DINING ROOM COORDINATOR Occupation Industry Job Start Date Job End Date Not on file Not on file Not on file Not on file documented as of this encounter Plan of Treatment Upcoming Encounters Date Type Department Care Team (Late st Contact Info) Description 03/13/2025 10:00 AM CDT Home Care Visit [facility] [address] [place] [address] Dari Payne LPN 03/13/2025 10:00 AM CDT Home Care Visit [place] [address] [place] [address] Spring Gilbert, PT [address] [place] [address] 03/16/2025 9:15 AM CDT Home Care Visit [facility] [address] [place] [address] Dari Payne LPN 03/20/2025 9:45 AM CDT Home Care Visit [place] [address] [place] [address] Mallika Dean, RN 03/23/2025 12:45 PM CDT Home Care Visit [address] [address] Dari Payne LPN 03/28/2025 8:00 AM CDT Appointment [facility] [address] [place] [address] Cecile Hills, RN [phone] (Work) 04/02/2025 11:15 AM CDT Appointment [facility] [address] [facility] [place] [address] Brit Gonzáles MD [address] [place] [address] 04/12/2025 1:00 PM CDT Office Visit [facility] [address] [place] [address] Lobo Allred, FLOR [address] [place] [address] 05/23/2025 11:45 AM CDT Office Visit [facility] [address] [place] [address] Brit Gonzáles MD [address] [place] [address] 08/08/2025 1:45 PM DINING ROOM COORDINATOR Office Visit [place] [address] [place] [address] Brit Gonzáles MD [address] [place] [address] documented as of this encounter Visit Diagnoses Not on filedocumented in this encounter Additional Health Concerns Infection Onset Date Last Indicated Resolved Time COVID-19 Rule Out 03/02/2020 03/02/2020 03/03/2020 8:23 PM CDT COVID-19 Rule Out 07/03/2020 07/03/2020 07/04/2020 11:25 PM DINING ROOM COORDINATOR COVID-19 Rule Out 09/07/2020 09/07/2020 09/08/2020 5:52 PM DINING ROOM COORDINATOR COVID-19 Rule Out 10/05/2020 10/05/2020 10/06/2020 11:37 AM DINING ROOM COORDINATOR COVID-19 Rule Out 02/08/2021 02/08/2021 02/08/2021 9:06 PM CDT COVID-19 Rule Out 01/24/2022 01/24/2022 01/24/2022 6:41 PM CDT COVID-19 Rule Out 01/04/2023 01/04/2023 01/04/2023 10:12 AM CDT documented as of this encounter Care Teams Pearl Hand Relationship Specialty Start Date End Date Megan Infante MD [address] [facility] [place] [address] PCP - General FAMILY PRACTICE 04/06/16 Piyush Pandey MD [address] [place] [phone] [employer] Vocal Music Teacher CARDIOVASCULAR DISEASE 04/06/16 12/28/23 Sharmila Davis, BOAT HOIST OPERATOR, CAR HIKER-C [address] [address] NURSE PRACTITIONER 01/04/17 04/03/24 Linda Block MD [address] [place] [address] [employer] Vocal Music Teacher CLINICAL CARDIAC ELECTROPHYSIOLOGY 02/08/17 04/12/23 Jeff Grace MD [address] [address] Consulting Physician INTERNAL MEDICINE 02/20/19 3 Zaki Ortiz MD [address] [address] Consulting Physician PULMONARY DISEASE 07/12/19 Concetta Acevedo MD [address] [place] [address] Surgeon NEUROLOGICAL SURGERY 12/16/22 Jeff Grace MD [address] [place] [address] Consulting Physician INTERNAL MEDICINE 02/11/23 Brit Gonzáles MD [address] [place] [address] Consulting Physician CARDIOVASCULAR DISEASE 12/29/23 [place] [address] [place] [address] OPHTHALMOLOGY 12/04/24 Corrie Pickard, customer trainer (Ambulatory) REGISTERED NURSE 12/26/24 documented as of this encounter
--- OUTSIDE RECORDS SUMMARY | 2025-03-12 23:42 | XMS_ITS | Encounter Summary ---
Author Organization [facility] Address [address] [place] [address] Care Team Providers Care Clinic Clerk Name Role Phone Piyush Pandey MD Unavailable [phone] Megan Infante MD Primary Care Provider [phone] Sharmila Davis APRN, NP-C Unavailable [phone] Linda Block MD Unavailable [phone] Jeff Grace MD Unavailable Zaki Ortiz MD Unavailable [phone] Concetta Acevedo MD Unavailable [phone] Jeff Grace MD Unavailable Brit Gonzáles MD Unavailable Cirilo Pal MD Unavailable [phone] Corrie Pickard RN Unavailable Unavailab Encounter Details Date Type Department Care Team (Late st Contact Info) Description 03/29/2017 Abstract [facility] [address] [place] [address] Piyush Pandey MD [address] [place] [address] Social History Tobacco Use Types Packs/Day Years Used Date Smoking Tobacco: Former Smokeless Tobacco: Former Chew Alcohol Use Standard Drinks/Week Comments Yes 0 (1 standard drink = 0.6 oz pur e alcohol) 6 per week Sex and Gender Information Value Date Recorded Sex Assigned at Male 09/07/2024 10:18 PM GROUP PROGRAM MANAGER Legal Sex Male 10:01 PM CDT Gender Identity Male 09/07/2024 10:18 PM GROUP PROGRAM MANAGER Sexual Orientation Straight 09/07/2024 10 :18 PM GROUP PROGRAM MANAGER Occupation Industry Job Start Date Job End Date Not on file Not on file Not on file Not on file documented as of this encounter Plan of Treatment Upcoming Encounters Date Type Department Care Team (Late st Contact Info) Description 03/13/2025 10:00 AM CDT Home [facility] Visit [facility] [address] [place] [address] Dari Payne LPN 03/13/2025 10:00 AM CDT Home Care Visit [facility] [address] [place] [address] Spring Gilbert, PT [address] [place] [address] 03/16/2025 9:15 AM CDT Home Care Visit [facility] [address] [place] [address] Dari Payne LPN 03/20/2025 9:45 AM CDT Home Care Visit [facility] [address] [place] [address] Mallika Dean RN 03/23/2025 12:45 PM CDT Home Care Visit [facility] [address] [place] [address] Dari Payne LPN 03/28/2025 8:00 AM CDT Appointment [facility] [address] [place] [address] Cecile Hills RN [phone] (Work) 04/02/2025 11:15 AM CDT Appointment [facility] [address] [facility] [facility] [place] [address] Brit Gonzáles MD [address] [place] [address] 04/12/2025 1:00 PM CDT Office Visit [facility] d [address] [place] [address] Lobo Allred, ASSISTANT CONTROLLER [address] [place] [address] 05/23/2025 11:45 AM CDT Office Visit [address] [place] [address] Brit Gonzáles MD [address] [place] [address] 08/08/2025 1:45 PM GROUP PROGRAM MANAGER Office Visit [place] [address] [place] [address] Brit Gonzáles MD [address] [place] [address] documented as of this encounter Visit Diagnoses Not on filedocumented in this encounter Additional Health Concerns Infection Onset Date Last Indicated Resolved Time COVID-19 Rule Out 03/02/2020 03/02/2020 03/03/2020 8:23 PM CDT COVID-19 Rule Out 07/03/2020 07/03/2020 07/04/2020 11:25 PM GROUP PROGRAM MANAGER COVID-19 Rule Out 09/07/2020 09/07/2020 09/08/2020 5:52 PM GROUP PROGRAM MANAGER COVID-19 Rule Out 10/05/2020 10/05/2020 10/06/2020 11:37 AM GROUP PROGRAM MANAGER COVID-19 Rule Out 02/08/2021 02/08/2021 02/08/2021 9:06 PM CDT COVID-19 Rule Out 01/24/2022 01/24/2022 01/24/2022 6:41 PM CDT COVID-19 Rule Out 01/04/2023 01/04/2023 01/04/2023 10:12 AM CDT documented as of this encounter Care Teams Clinic Clerk Relationship Specialty Start Date End Date Megan Infante MD [address] [facility] [place] [address] PCP - General FAMILY PRACTICE 04/06/16 Piyush Pandey MD [address] [place] [address] [place] Event Marketing Coordinator CARDIOVASCULAR DISEASE 04/06/16 12/28/23 Sharmila Davis APRN, ASSISTANT CONTROLLER-C [address] [place] [phone] NURSE PRACTITIONER 01/04/17 04/03/24 Lidna Block MD [address] [phone] [place] Event Marketing Coordinator CLINICAL CARDIAC ELECTROPHYSIOLOGY 02/08/17 04/12/23 Jeff Grace MD [address] [phone] Consulting Physician INTERNAL MEDICINE 02/20/19 3 Zaki Ortiz MD [address] [place] [phone] Consulting Physician PULMONARY DISEASE 07/12/19 Concetta Acevedo MD [address] [place] [address] Surgeon NEUROLOGICAL SURGERY 12/16/22 Jeff Grace MD [address] [place] [address] Consulting Physician INTERNAL MEDICINE 02/11/23 Brit Gonzáles MD [address] [place] [address] Consulting Physician CARDIOVASCULAR DISEASE 12/29/23 [place] [address] [place] [address] OPHTHALMOLOGY 12/04/24 Corrie Pickard, hosiery knitter (Ambulatory) REGISTERED NURSE 12/26/24 documented as of this encounter
--- OUTSIDE RECORDS SUMMARY | 2025-03-12 23:42 | XMS_ITS | Clinical Summary ---
Author Organization [facility] Address [address] [place] [address] Care Team Providers Care Neuropsychology Director Name Role Phone Megan Infante MD Primary Care Provider [phone] Zaki Ortiz MD Unavailable [phone] Concetta Acevedo MD Unavailable + [phone] Jeff Grace MD Unavailable Brit Gonzáles MD Unavailable Cirilo Pal MD Unavailable [phone] Corrie Pickard RN Unavailable Unavailab le [...] stolic and diastolic CHF (congestive heart failure) ([facility]) 02/06/2025 Encounter for rehabilitation 01/10/2025 Candidiasis 12/26/2024 Chronic venous insufficiency 04/17/2024 CHF exacerbation ([facility]) 07/12/2023 Rib fractures 02/06/2023 NSTEMI (non-ST elevated myoc ardial infarction) ([facility]) 02/01/2022 Elevated troponin 02/01/2022 Elevated brain natriuretic peptide (BNP) level 0 02/01/2022 Fall 02/01/2022 Other closed fracture of dis kaity end of right fibula with routine healing, subsequent encounter 01/29/2022 Leg edema 12/09/2021 Mild persistent asthma without complication ([facility]) 04/06/2021 Asymptomatic carotid artery stenosis, bilateral 11/26/2020 Obstructive sleep apnea (adult) (pediatric) 10/21 Pulmonary hypertension ([facility]) 021 TIA (transient ischemic attack) 09/03/2020 Pain in both lower extremities 03/07/2019 Chronic atrial fibrillation ([facility]) Chronic anticoagulation 02/15/2017 Abnormal finding [...] hypertension Mixed hyperlipidemia Diabetes mellitus, type II ([facility]) Coronary artery disease invo lving morongo coronary artery of morongo heart without angina pectoris COPD (chronic obstructive pu lmonary disease) ([facility]) Carotid disease, bilateral Arthritis Aortic stenosis Varicose veins of bilateral lower extremities with other complications Abnormal ankle brachial index (STELLA) Claudication CHF (congestive heart failure) ([facility]) 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 ([facility]) Non-pressure chronic ulcer o f left calf limited to breakdown of skin ([facility]) Resolved Problems Problem Noted Date Diagnosed Date Resolved Date Encounter for preventive health examination 02/06/2014 05/03/2020 PAD (peripheral artery disease) 04/11/2019 Encounters Date Type Department Care Team Description 03/12/2025 Orders Only [facility] [address] [place] [address] Brennan Hernandez MD 03/11/2025 9:30 AM CDT Home Care Visit [facility] Home Care [facility] [address] [place] [address] Mallika Dean, RN SN OASIS RESUMPTION OF CARE 03/11/2025 Plan of Care Documentation [facility] [address] [place] [address] 03/07/2025 Patient Outreach [facility] [address] [place] [phone] Corrie Pickard RN TCM (TCM-initial call) 03/02/2025 1:02 PM CDT Anesthesia Event [facility] [address] [place] [address] Ivanna Iglesias MD Oke, Francis A, CRNA 03/02/2025 11:55 AM CDT - 03/02/2025 12:44 PM CDT Surgery [facility] [address] [place] [address] Marisol Mac MD EGD WITH BIOPSY 03/02/2025 Home Care Visit [facility] Home [facility] [address] [place] [address] Danyelle Zayas RN SN OASIS TRANSFER W/OUT DC 03/01/2025 Patient Outreach [facility] [address] [place] [phone] Corrie Pickard RN Hospital Follow Up (PCP ICU Admission Notification) 02/28/2025 4:33 PM CDT - 03/06/2025 2:00 PM CDT Hospital Encounter [facility] 4th Floor Medical [address] [place] [address] Jacinta Conklin MD Hindi, Zakaria, MD Parikh, Ankit R, MD Markapuram, Srikanth, MD Abnormal Lab Results Discharge Disposition: Home with Home Health Care 02/28/2025 Travel 02/28/2025 Patient Outreach [facility] Medical [place] [id number] [place] [phone] Corrie Pickard, YUNI TCM (TCM-2week f/u call) 02/28/2025 Orders Only [facility] [address] [place] [address] Brit Gonzáles MD 02/28/2025 MyChart Message Enc [facility] [address] [place] [address] [facility] Provider Labs results 02/27/2025 Telephone [facility] [address] [place] [address] Brit Gonzáles MD Lab Results 02/26/2025 2:45 PM CDT Home Care Visit [facility] Home Care [facility] [address] [place] [address] Ana Pedraza, HEALTH AND WELLNESS COACH HEALTH AND WELLNESS COACH HOME VISIT 02/26/2025 12:54 PM CDT - 02/26/2025 11:59 PM CDT Hospital Encounter [facility] [address] [place] [address] Brit Gonzáles MD Discharge Disposition: Home or Self Care (Routine Discharge) 02/26/2025 11:30 AM CDT Home Care Visit [place] [address] [place] [address] Dari Payne LPN SN HOME VISIT 02/26/2025 Telephone [facility] [address] [place] [address] Brit Gonzáles MD Concerns 02/26/2025 Orders Only [place] [address] [facility] [place] [address] Brit Gonzáles MD 02/26/2025 Results Follow-Up [facility] [address] [place] [address] Danyelle Lam RN [facility] [address] [facility] 02/21/2025 11:00 AM CDT Home Care Visit [facility] [address] [place] [address] Benjamin Hawkins, PT PT INITIAL EVALUATION 02/20/2025 9:30 AM CDT Home Care Visit [facility] [address] [place] [address] Mallika Dean, RN SN HOME VISIT 02/20/2025 Patient Outreach [facility] [address] [place] [phone] Corrie Pickard, RN TCM (TCM One week f/u call with Daughter Bonnie) 02/19/2025 2:00 PM CDT Home Care Visit [facility] [address] [place] [address] Alice Sauceda OT OT INITIAL EVALUATION 02/19/2025 11:00 AM CDT Office Visit [facility] [address] [place] [address] Brit Gonzáles MD 02/19/2025 10:45 AM CDT - 02/19/2025 11:59 PM CDT Hospital Encounter [facility] [address] [facility] [place] [address] Brit Gonzáles MD Discharge Disposition: Home or Self Care (Routine Discharge) 02/19/2025 Home Care Visit [facility] [address] [place] [address] Eros Tang, PT CASE COMMUNICATION 02/19/2025 Travel 02/19/2025 Orders Only [facility] [address] [place] [address] Brit Gonzáles MD 02/15/2025 Plan of Care Documentation [facility] [address] [place] [address] 02/14/2025 11:00 AM CDT Home Care Visit [facility] [address] [place] [address] Cecile Hills RN SN OASIS RESUMPTION OF CARE 02/13/2025 Telephone [facility] [address] [place] [phone] Brit Gonzáles MD Appointment Request (Discharge follow up ) 02/13/2025 Patient Outreach [place] [address] [place] [address] Corrie Pickard RN TCM (TCM_Initial call with pt) 02/13/2025 Hospital Follow-up Call [facility] [address] [place] [address] Cara Potter RN 02/08/2025 Home Care Visit [facility] [address] [place] [address] Danyelle Zayas RN SN OASIS TRANSFER W/OUT DC 02/07/2025 Patient Outreach [facility] [address] [place] [address] Corrie Pickard RN Hospital Follow Up (PCP Admission Notification) 02/06/2025 2:39 PM CDT - 02/12/2025 4:29 PM CDT Hospital Encounter [facility] [address] [place] [address] Shanna Young DO Sonani, Bhavin V., MD Rangu, Venu Mohan, MD Shortness Of Breath Discharge Disposition: Home with Home Health Care 02/06/2025 12:45 PM CDT Office Visit [facility] [address] [place] [address] Brit Gonzáles MD 02/06/2025 8:30 AM CDT Home Care Visit [facility] [address] [place] [address] Swati Cloud LPN SN HOME VISIT 02/06/2025 Orders Only [facility] [address] [place] [address] Brit Gonzáles MD 02/06/2025 Orders Only [facility] [address] [place] [address] Brit Gonzáles MD 02/06/2025 Travel 02/06/2025 Orders Only [facility] [address] [place] [address] Brit Gonzáles MD 02/05/2025 Telephone [facility] [address] [place] [address] Brit Gonzáles MD Lab Results 02/05/2025 Abstract [facility] [address] [place] [address] Abstract, Doc Pccl 02/02/2025 9:30 AM CDT Home Care Visit [facility] [address] [place] [address] Eros Tang, PT PT INITIAL EVALUATION 02/02/2025 8:45 AM CDT Home Care Visit [facility] [address] [place] [address] Mallika Dean, RN SN HOME VISIT 02/01/2025 [facility] [place] [phone] Corrie Pickard RN 01/31/2025 Scan [facility] [address] [place] [address] Scanned, Doc Pccl 01/31/2025 Telephone [facility] [address] [place] [address] Brit Gonzáles MD Appointment Request 01/30/2025 2:56 PM CDT - 01/30/2025 11:59 PM CDT Hospital Encounter [facility] [address] [place] [address] Yael Renteria NP Discharge Disposition: Home or Self Care (Routine Discharge) 01/30/2025 9:18 AM CDT - 01/30/2025 11:59 PM CDT Hospital Encounter [facility] [address] [place] [address] Megan Infante MD Discharge Disposition: Home or Self Care (Routine Discharge) 01/30/2025 8:00 AM CDT Home Care Visit [facility] [address] [place] [address] Dari Payne LPN SN HOME PRN VISIT 01/30/2025 Home Care Visit [facility] [address] [place] [address] Benjamin Hawkins, PT CASE COMMUNICATION 01/30/2025 Orders Only [facility] [address] [place] [address] Megan Infante MD 01/29/2025 8:00 AM CDT Home Care Visit [facility] [address] [place] [address] Rebecca Bello, RN SN OASIS START OF CARE 01/29/2025 Plan of Care Documentation [facility] Home [facility] [address] [place] [address] 01/29/2025 Patient Out[facility] [address] [place] [address] Corrie Pickard ZIPPER CUTTER F/U (PCP ED Notificiation) 01/26/2025 11:00 AM CDT Home Care Visit [facility] [address] [place] [address] Rebecca Bello RN CASE COMMUNICATION 01/25/2025 1:45 PM CDT - 01/25/2025 5:19 PM CDT Emergency [facility] [address] [facility] [place] [address] Lawrence Kong MD Male Gu Discharge Disposition: Home or Self Care (Routine Discharge) 01/25/2025 11:30 AM CDT Home Care Visit [facility] [address] [place] [address] Cecile Hills RN SN NON ADMIT SOC 01/25/2025 Home Care Visit [place] [address] [place] [address] Bianka Maldonado RN CASE COMMUNICATION 01/25/2025 Travel 01/25/2025 Patient Outreach [facility] [address] [place] [address] Corrie Pickard ZIPPER CUTTER F/U (PCP Notification of ED visit <1 week after d/c due to Urinary Retention. Sent to ED by Home Health team. ) 01/24/2025 12:40 PM CDT - 01/24/2025 2:46 PM CDT Emergency [facility] Emergency [address] [place] [address] Cirilo Ace DO Urinary Retention; Abdominal Distention Discharge Disposition: Home or Self Care (Routine Discharge) 01/24/2025 8:45 AM CDT Home Care Visit [facility] [address] [place] [address] Mallika Dean, RN SN NON ADMIT SOC 01/24/2025 Travel 01/22/2025 Patient Outreach [facility] [address] [place] [address] Corrie Pickard RN TCM (TCM-Iniital call to pt daughter Bonnie) 01/10/2025 3:31 PM CDT - 01/18/2025 1:47 PM CDT Hospital Encounter [facility] [address] [facility] [address] Kilo Navarro MD Fisher, Amy E, MD Discharge Disposition: Home with Home Health Care 01/10/2025 11:30 AM CDT Telephone [facility] [address] [place] [address] Diamond Can MD Holter Monitor 01/10/2025 Travel 01/08/2025 Telephone [facility] [address] [place] [address] Diamond Can MD Holter Monitor; Appointment Request 01/01/2025 Telephone [facility] [address] [facility] [place] [address] Catrachita Perez RN Referral (Swing bed [facility]/) 12/28/2024 8:04 PM CDT - 01/10/2025 1:49 PM CDT Hospital Encounter [facility] [address] [place] [address] Juanpablo Herman MD Lin, Kevin A, MD Markapuram, Srikanth, MD Discharge Disposition: Senior Living Facility 12/28/2024 Travel 12/26/2024 Patient Outreach [facility] [address] [place] [phone] Corrie Pickard RN Hospital Follow Up (Admission notification to PCP Dr. Megan Infante [facility]); TCM (TCM -Initial call to SNF after d/c from Hosp. ) 12/25/2024 2:52 PM CDT - 12/28/2024 6:25 PM CDT Hospital Encounter [facility] [address] [facility] [place] [address] Piyush Manzano DO Fisher, Amy E, MD Ishmael, Timothy L, MD Shortness Of Breath Discharge Disposition: Transfer to Acute Care Hospital 12/25/2024 Travel 12/11/2024 Telephone [facility] [address] [place] [address] Brit Gonzáles MD Appointment Request [...] doctor or pharmacy? Often 01/10/2025 [facility] Utilities Answer Date Recorded In the past 12 months has th e [employer], oil, or water [employer] threatened to shut off services in your [...] often do you attend chur ch or anglican services? Never 01/10/2025 Do you belong to [...] move on to questions 3-9 0 12/01/2021 [facility] - [...] time in the past 12 m [facility], were you homeless or living in a detention (including now)? 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 [place], [place] [address] 03/16/2025 9:15 AM CDT Home Care Visit [address] [address] Dari Payne LPN 03/20/2025 9:45 AM CDT Home Care Visit [place] [address] [place] [address] Mallika Dean, RN 03/23/2025 12:45 PM CDT Home Care Visit [place] [address] [place] [address] Dari Payne LPN 03/28/2025 8:00 AM CDT Appointment [place] [address] [place] [address] Cecile Hills, RN [phone] (Work) 04/02/2025 11:15 AM CDT Appointment [facility] [address] [place] [address] Brit Gonzáles MD [address] [place], [place] [address] 04/12/2025 1:00 PM CDT Office Visit [facility] jorge [address] [place] [address] Lobo Allred, NITRO MAN [address] [place] [address] 05/23/2025 11:45 AM CDT Office Visit [facility] [place] [address] [place] [address] Brit Gonzáles MD [address] [place] [address] 08/08/2025 1:45 PM CERAMIC PAINTER Office Visit [facility] [place] [address] [place] [address] Brit Gonzáles MD [address] [place] [address] Health Maintenance Due Date Last Done Comments [...] season) 2024 07/29/2021, 11/14/2020, 10/16/2020 PHQ-2 (Physician [place]) 08/23/2024 Hemoglobin A1C 09/01/2025 03/01/2025, 01/21, 12/29/2024, [...] Recommended Domains Addressed Status Status Reason/Outcome Date/Time [facility] Crisis Services, Mental Health Education, Mental Health [...] ECHO Routine 01/08/2025 9:51 AM CDT A-fib ([facility]) ECG 12-LEAD Routine 01/08/2025 8:40 AM CDT NEMO CARDIAC Routine 01/08/2025 7:55 AM CDT POCT GLUCOSE - DOCKED DEVICE Routine 01/08/2025 5:32 AM CDT CARDIOVERSION EXTERNAL Routine 12:30 AM CDT A-fib ([facility]) POCT GLUCOSE - DOCKED DEVICE [...] 70 - 109 03/06/2025 11:46 AM CDT [facility] 03/06/2025 11:4 4 AM CDT Danika Salcedo MD POCT ORDERABLES - DEVICE Final Result [facility] [address] [place] [address], [place] [phone] * (ABNORMAL) COMPREHENSIVE METABOLIC PANEL (03/06/2025 6:10 AM CDT) Only the most recent of19 resultswithin the time period is included. SODIUM S/P/B 131(L) 136 - 145 MMOL/L 03/06/2025 7:01 AM CDT [facility] POTASSIUM S/P/B 4.1 3.5 - 5.1 MMOL/L 03/06/2025 7:01 AM CDT [facility] CHLORIDE S/P/B 97 97 - 115 MMOL/L 03/06/2025 7:01 AM CDT [facility] CO2 29.1 21.0 - 32.0 MMOL/L 03/06/2025 7:01 AM CDT [facility] GLUCOSE 160(H) 74 - 106 MG/DL 03/06/2025 7:01 AM CDT [facility] BUN 81(H) 7 - 18 MG/DL 03/06/2025 7:01 AM CDT [facility] CREATININE S/P/B 1.96(H) 0.70 - 1.30 MG/DL 03/06/2025 7:01 AM CDT [facility] CALCIUM S/P/B 8.3(L) 8.5 - 10.1 MG/DL 03/06/2025 7:01 AM CDT [facility] BILIRUBIN TOTAL S/P/B 1.3(H) 0.2 - 1.0 MG/DL 03/06/2025 7:01 AM CDT [facility] ALKALINE PHOSPHATASE S/P/B 94 45 - 115 U/L 03/06/2025 7:01 AM CDT [facility] AST 23 15 - 37 U/L 03/06/2025 7:01 AM T [facility] ALT 18 16 - 61 U/L 03/06/2025 7:01 AM T [facility] TOTAL PROTEIN S/P/B 6.2(L) 6.4 - 8.2 G/DL 03/06/2025 7:01 AM CDT [facility] ALBUMIN S/P/B 2.7(L) 3.4 - 5.0 G/DL 03/06/2025 7:01 AM T [facility] ANION GAP 4.9 2.0 - 10.0 MMOL/L 03/06/2025 7:01 AM T [facility] OSMOLALITY (CALC) 300 MOSM/KG 025 7:01 AM T [facility] Comment:REFERENCE RANGE NOT ESTABLISHED GFR ESTIMATE 36(L) >90 ML/MIN/1. 73 M2 03/06/2025 7:01 AM T [facility] GFR NOTES GFR REFERENCE S: 03/06/2025 7:01 AM T [facility] Comment: THE ESTIMATED GFR IS [...] us Segundo Navarrete MD LABORATORY Final Result [facility] [address] [place] [address], [id number] * (ABNORMAL) CBC W/DIFF AUTOMATED (03/06/2025 6:10 AM CDT) Only the most recent of36 resultswithin the time period is included. WBC 10.32 4.00 - 10.80 x10'3/uL 03/06/2025 7:06 AM CDT [facility] RBC 3.09(L) 4.50 - 6.10 x10'6/uL 03/06/2025 7:06 AM CDT [facility] HGB 7.6(L) 13.0 - 18.0 G/DL 03/06/2025 7:06 AM CDT [facility] HCT 25.8(L) 37.0 - 52.0 % 03/06/2025 7:06 AM CDT [facility] MCV 83.5 78.0 - 100.0 FL 03/06/2025 7:06 AM CDT [facility] MCH 24.6(L) 27.0 - 31.0 PG 03/06/2025 7:06 AM CDT [facility] MCHC 29.5(L) 33.0 - 36.0 G/DL 03/06/2025 7:06 AM CDT [facility] RDW 19.8(H) 11.5 - 14.5 % 03/06/2025 7:06 AM CDT [facility] PLT 67(L) 150 - 350 x10'3/uL 03/06/2025 8:06 AM CDT [facility] DIFFERENTIAL TYPE AUTOMATED DIFFERENTIAL 03/06/2025 8:06 AM CDT [facility] SEG NEUTROPHILS 73.1 % 8:06 AM CDT [facility] LYMPHOCYTES 10.8 % 03/06/2025 8:06 AM CDT [facility] MONOCYTES 12.2 % 03/06/2025 8:06 AM CDT [facility] EOSINOPHILS 2.5 % 03/06/2025 8:06 AM CDT [facility] BASOPHILS 0.3 % 03/06/2025 8:06 AM CDT [facility] IMMATURE GRANS % 0.6 % 03/06/20 8:06 AM CDT [facility] ABS. NEUTROPHILS 7.60 1.60 - 8.30 x10'3/uL 03/06/2025 8:06 AM CDT [facility] ABS. LYMPHOCYTES 1.11 0.80 - 4.70 x10'3/uL 03/06/2025 8:06 AM CDT [facility] ABS. MONOCYTES 1.26 0.00 - 1.50 x10'3/uL 03/06/2025 8:06 AM CDT [facility] ABS. EOSINOPHILS 0.26 0.00 - 0.40 x10'3/uL 03/06/2025 8:06 AM CDT [facility] ABS. BASOPHILS 0.03 0.00 - 0.20 x10'3/uL 03/06/2025 8:06 AM CDT [facility] ABS. IMMATURE GRANULOCYTES 0.06(H) 0.00 - 0.03 x10'3/uL 03/06/2025 8:06 AM CDT [facility] ABS. NUCLEATED RBC'S 0.05(H) 0.00 - 0.01 x10'3/uL 03/06/2025 8:06 AM CDT [facility] NRBC % 0.5 % 03/06/2025 8:06 AM CDT [facility] 03/06/2025 6:10 AM CDT us Segundo Navarrete MD LABORATORY Final Result [facility] [address] [place] [address], [id number] * US GD PARACENT W IMAGING (03/05/2025 [...] 4:20 PM Narrative 03/06/2025 1:[address] PM [address]T [address] [address] PROCEDURE: ULTRASOUND-GUIDED THERAPEUTIC ABDOMINAL PARACENTESIS. DATE OF PROCEDURE: 03/05/2025 12:12 PM INDICATION: 69 years old Male with who presents for a therapeutic abdominal paracentesis. PHYSICIANS: Elizabeth Oakes M.D. gang drill press operator: Renny Quevedo PA-C MEDICATIONS: 1% lidocaine [...] after 1% lidocaine local anesthesia, a 5 Serbian catheter/needle was introduced into the pocket of [...] Procedure Note Elizabeth Oakes MD - 03/06/2025 [facility] [address] [place], [place] [address] PROCEDURE: ULTRASOUND-GUIDED THERAPEUTIC ABDOMINAL PARACENTESIS. DATE OF PROCEDURE: 03/05/2025 12:12 PM INDICATION: 69 years old Male with who presents for a therapeuticabdominal paracentesis. PHYSICIANS: Elizabeth Oakes M.D. gang drill press operator: Renny Quevedo PA-C MEDICATIONS: 1% lidocaine [...] Then after 1% lidocaine local anesthesia,a 5 Serbian catheter/needle was introduced into the pocket of [...] well. IMPRESSION: Successful ultrasound-guided therapeutic abdominal paracentesis [id number] ml of clear yellow peritoneal fluid. PLAN: [...] - 12.5 SEC 03/05/2025 5:03 AM CDT [facility] INR 1.6(H) 0.8 - 1.1 03/05/2025 5:03 AM CDT [facility] 03/05/2025 4:19 AM CDT us Segundo Navarrete MD LABORATORY Final Result Performing Organization Address [facility]/ZIP Co de Phone Number [facility] [address] [place] [address], [id number] * PHOSPHORUS, INORGANIC PHOSPHATE (03/03/2025 3:48 AM CDT) Only the most recent of5 resultswithin the time period is included. PHOSPHORUS 3.3 2.5 - 4.9 MG/DL 03/03/2025 4:40 AM CDT [facility] 03/03/2025 3:48 AM CDT us Charu Abraham MD LABORATORY Final Result [facility] [address] [place] [address], [place] [phone] [id number] * MAGNESIUM (03/03/2025 3:48 AM CDT) Only the most recent of14 resultswithin the time period is included. MAGNESIUM 2.6 1.6 - 2.6 MG/DL 03/03/2025 4:40 AM CDT [facility] 03/03/2025 3:48 AM CDT Charu Abraham MD LABORATORY Final Result [facility] [address] [place] [address], [id number] * ENDOSCOPY (SCAN ORDER) (03/02/2025 11:27 AM CDT) Marisol Mac MD SCANNING Final Result * (ABNORMAL) BMP WITHOUT GLUCOSE (03/02/2025 11:26 AM CDT) SODIUM S/P/B 132(L) 136 - 145 MMOL/L 03/02/2025 12:54 PM CDT [facility] POTASSIUM S/P/B 3.3(L) 3.5 - 5.1 MMOL/L 03/02/2025 12:54 PM CDT [facility] CHLORIDE S/P/B 96(L) 97 - 115 MMOL/L 03/02/2025 12:54 PM CDT [facility] CO2 27.3 21.0 - 32.0 MMOL/L 03/02/2025 12:54 PM CDT [facility] BUN 101(H) 7 - 18 MG/DL 03/02/2025 12:54 PM CDT [facility] CREATININE S/P/B 2.34(H) 0.70 - 1.30 MG/DL 03/02/2025 12:56 PM CDT [facility] CALCIUM S/P/B 8.3(L) 8.5 - 10.1 MG/DL 03/02/2025 12:54 PM CDT [facility] ANION GAP 8.7 2.0 - 10.0 MMOL/L 03/02/2025 12:54 PM CDT [facility] GFR ESTIMATE 29(L) >90 ML/MIN/1. 73 M2 03/02/2025 12:56 PM CDT [facility] GFR NOTES GFR REFERENCE S: 03/02/2025 12:56 PM CDT [facility] Comment: THE ESTIMATED GFR IS [...] Ivanna Iglesias MD LABORATORY Final Re sult [facility] [address] [place] [address], [id number] * (ABNORMAL) CBC, AUTO, NO DIFF (03/02/2025 11:26 AM CDT) WBC 10.38 4.00 - 10.80 x10'3/uL 03/02/2025 12:52 PM CDT [facility] RBC 3.49(L) 4.50 - 6.10 x10'6/uL 03/02/2025 12:52 PM CDT [facility] HGB 8.8(L) 13.0 - 18.0 G/DL 03/02/2025 12:52 PM CDT [facility] HCT 28.3(L) 37.0 - 52.0 % 03/02/2025 12:52 PM CDT [facility] MCV 81.1 78.0 - 100.0 FL 03/02/2025 12:52 PM CDT [facility] MCH 25.2(L) 27.0 - 31.0 PG 03/02/2025 12:52 PM CDT [facility] LAB MCHC 31.1(L) 33.0 - 36.0 G/DL 03/02/2025 12:52 PM CDT [facility] RDW 18.7(H) 11.5 - 14.5 % 03/02/2025 12:52 PM CDT [facility] PLT 114(L) 150 - 350 x10'3/uL 03/02/2025 12:52 PM CDT [facility] 03/02/2025 11:2 6 AM CDT us Ivanna Iglesias MD LABORATORY Final Re sult [facility] [address] [place] [address], [id number] * Pathology (03/02/2025 12:00 AM CDT) PATHOLOGY [facility] Department of Laboratory Medicine [address] [place] [address] , extension [phone] Pathology Report Surgical Pathology Report Name: OBIE SIMS Specimen #: [id number] Age: 12 1955 (Age: 69) Location: [address] Sex: M Procedure Date: 03/02/2025 [facility] #: [id number] Date Received: 03/02/2025 Date Reported: 03/05/2025 Provider: [...] interpretation, and sign out were performed at [facility], [address] [place] [address]. Electronically Signed Out CAROLA OSORIO MD [facility] TISSUE GASTRIC BIOPSY SPECIMEN / Unknown 03/02/2025 1:26 PM CDT Marisol Mac MD PATHOLOGY/CYTOLOGY ORDERABLES Fi nal Result Performing Organization Address [facility] Co de Phone Number [facility] [address] [place] [address], [place] [phone] * (ABNORMAL) HEMOGLOBIN AND HEMATOCRIT (03/01/2025 4:18 PM CDT) Only the most recent of4 resultswithin the time period is included. HGB 9.2(L) 13.0 - 18.0 G/DL 03/01/2025 4:48 PM CDT [facility] HCT 29.7(L) 37.0 - 52.0 % 03/01/2025 4:48 PM CDT [facility] 03/01/2025 4:18 PM CDT us Ryan Metcalf MD LABORATORY Final Result Performing Organization Address [facility] Co de Phone Number [facility] [address] [place] [address], [place] [phone] * (ABNORMAL) HEMOGLOBIN, GLYCOSYLATED (03/01/2025 4:21 AM CDT) Only the most recent of3 resultswithin the time period is included. HGB A1C 6.7(H) <5.7 % 03/01/2025 6:05 AM CDT [facility] ESTIMATED AVG GLUCOSE 146(H) 74 - 114 MG/DL 03/01/2025 6:05 AM CDT [facility] 03/01/2025 4:21 AM CDT Charu Abraham MD LABORATORY Final Result Performing Organization Address [facility] Co de Phone Number [facility] [address] [place] [address], [phone] * TRANSFUSE RED BLOOD CELLS (03/01/2025 2:32 AM CDT) Only the most recent of3 resultswithin the time period is included. Ryan Metcalf MD NURSING TREATMENT ORDERABLES - BLOOD ADMIN Final Result * CULTURE URINE (02/28/2025 9:41 PM CDT) Only the most recent of5 resultswithin the time period is included. SPEC DESCRIPTION URINE CLEAN CATCH 02/28/2025 9:41 PM CDT [facility] SPECIAL REQUESTS NO SPECIAL REQUEST 02/28/2025 9:41 PM CDT [facility] CULTURE RESULT NO GROWTH (< OR = 1,000 CFU/ML) 03/02/2025 11:50 AM CDT [facility] URINE SPECIMEN OBTAINED BY CLEAN CATCH PROCEDURE / Unknown 02/28/2025 9:41 PM CDT 03/01/2025 4:56 AM CDT Maria Del Carmen REBOLLEDO MICROBIOLOGY - GENERAL ORDERABL ES Final Result Performing Organization Address [facility] Co de Phone Number [facility] [address] [place] [address], [place] [phone] * URINALYSIS (02/28/2025 9:39 PM CDT) Only the most recent of7 resultswithin the time period is included. COLOR (U) LIGHT YELLOW 02/28/2025 10:04 PM CDT [facility] TRANSPARENCY CLEAR 02/28/2025 10:04 PM CDT [facility] SPECIFIC GRAVITY (U) 1.013 1.002 - 1.035 02/28/2025 10:04 PM CDT [facility] U PH 5.0 5 - 8 02/28/2025 10:04 PM CDT [facility] PROTEIN RANDOM (U) NEGATIVE NEGATIVE 02/28/2025 10:04 PM CDT [facility] GLUCOSE (U) NEGATIVE NEGATIVE MG/DL 02/28/2025 10:04 PM CDT [facility] KETONES MG/DL (U) NEGATIVE NEGATIVE 02/28/2025 10:04 PM CDT [facility] BILIRUBIN (U) NEGATIVE NEGATIVE 02/28/2025 10:04 PM CDT [facility] BLOOD (U) NEGATIVE NEGATIVE 02/28/2025 10:04 PM CDT [facility] NITRITES NEGATIVE NEGATIVE 02/28/2025 10:04 PM CDT [facility] UROBILINOGEN NORMAL 0 - 1 EU/DL 02/28/2025 10:04 PM CDT [facility] LEUKOCYTES (U) NEGATIVE NEGATIVE 02/28/2025 10:04 PM CDT [facility] RBC/HPF <1 0 - 3 /HPF 02/28/2025 10:04 PM CDT [facility] WBC/HPF 1 0 - 6 /HPF 02/28/2025 10:04 PM CDT [facility] BACTERIA (U) NONE /HPF 02/28/2025 10:04 PM CDT [facility] SQUAMOUS EPITHELIALS <1 02/28/2025 10:04 PM CDT [facility] HYALINE CASTS 11 02/28/2025 10:04 PM CDT [facility] URINE SPECIMEN OBTAINED BY CLEAN CATCH PROCEDURE / Unknown 02/28/2025 9:39 PM CDT Maria Del Carmen REBOLLEDO URINE ORDERABLES Final Result [facility] [address] [place] [address], [phone] * (ABNORMAL) POCT ACUTE VENOUS PANEL (02/28/2025 8:02 PM CDT) SODIUM WHOLE BLOOD 127(L) 138 - 146 mmol/L 02/28/2025 8:04 PM CDT [facility] POTASSIUM WHOLE BLOOD 3.9 3.5 - 4.9 mmol/L 02/28/2025 8:04 PM CDT [facility] CA IONIZED WH BLOOD 1.01(L) 1.12 - 1.32 mmol/L 02/28/2025 8:04 PM CDT [facility] POC PH VENOUS 7.373 7.31 - 7.41 02/28/2025 8:04 PM CDT [facility] POC PCO2 VENOUS 49.5 41.0 - 51.0 MMHG 02/28/2025 8:04 PM CDT [facility] POC PO2 VENOUS 20(L) 25 - 40 MMHG 02/28/2025 8:04 PM CDT [facility] POC HCO3 VENOUS 28.8(H) 23 - 28 MMOL/L 02/28/2025 8:04 PM CDT [facility] POC TCO2 VENOUS 30(H) 24 - 29 MMOL/L 02/28/2025 8:04 PM CDT [facility] POC BASE EXCESS VENOUS 4(H) 0 - 3 MMOL/L 02/28/2025 8:04 PM CDT [facility] POC HEMATOCRIT 26(L) 38 - 51 % 02/28/2025 8:04 PM CDT [facility] TIME TEST WAS PERFORMED: 200102/28/2025 8:04 PM CDT [facility] 02/28/2025 8:0 2 PM CDT us Charu Abraham MD POCT ORDERABLES - DEVICE Final Result Performing Organization Address [facility] Co de Phone Number [facility] [address] [place] [address], [phone] * STAPH SCREENING BY PCR (02/28/2025 8:00 PM CDT) SPECIMEN SOURCE RESPIRATORY, NOSE 02/28/2025 8:11 PM CDT [facility] MRSA BY PCR NASAL METHICILLIN RESISTANT STAPH AUREUS NOT DETECTED METHICILLIN RESISTANT STAPH AUREUS NOT DETECTED 03/01/2025 11:01 AM CDT [facility] NASAL STRUCTURE / Unknown 02/28/2025 8:00 PM CDT us Charu Abraham MD MICROBIOLOGY - GENERAL ORDERABL ES Final Result Performing Organization Address [facility] de Phone Number [facility] [address] [place] [address], [place] [phone] * LACTIC ACID - SINGLE (02/28/2025 8:00 PM CDT) LACTIC ACID VENOUS 1.1 0.4 - 2.0 MMOL/L 02/28/2025 8:33 PM CDT [facility] 02/28/2025 8:00 PM CDT us Charu Abraham MD LABORATORY Final Result Performing Organization Address [facility] Co de Phone Number [facility] [address] [place] [address], [phone] * PARTIAL THROMBOPLASTIN TIME,PTT (02/28/2025 7:04 PM CDT) Only the most recent of3 resultswithin the time period is included. Pathologist [facility] PTT 28.7 25.1 - 36.5 SEC 02/28/2025 7:45 PM CDT [facility] 02/28/2025 7:04 PM CDT Jacinta Conklin MD LABORATORY Final Result [facility] [address] [place] [address], [phone] * TROPONIN, QUANT (02/28/2025 7:04 PM CDT) Only the most recent of5 resultswithin the time period is included. [facility] TROPONIN I HIGH SENSITIVITY 70 0 - 78 ng/L 02/28/2025 7:52 PM CDT [facility] 02/28/2025 7:04 PM CDT Charu Abraham MD LABORATORY Final Result Performing Organization Address City/[facility]/ZIP Co de Phone Number [facility] [address] [place] [address], [phone] * (ABNORMAL) THYROID STIM HORMONE, TSH (02/28/2025 7:04 PM CDT) [facility] TSH 8.370(H) 0.358 - 3.740 uIU/ML 02/28/2025 7:52 PM CDT [facility] Comment: ASSAY PERFORMED BY CHEMILUMINESCENCE METHODOLOGY USING [employer] [facility]. PATIENT RESULTS DETERMINED BY ASSAYS USING DIFFERENT MANUFACTURERS FOR METHODS MAY NOT BE COMPARABLE. 02/28/2025 7:04 PM CDT Charu Abraham MD LABORATORY Final Result [facility] [address] [place] [address], [phone] * CT CHEST+ABD+PEL WO CON (02/28/2025 6:43 [...] Ordered By: JACINTA CONKLIN Interpreted By: Anjali Gacria MD, 02/28/2025 6:46 PM Narrative 02/28/2025 9:41 PM CDT [facility] [address] [place], [place] [address] Examination: CT chest, abdomen and pelvis without [...] Procedure Note Lisa Nelson MD - 02/28/2025 [facility] [address] [place], [place] [address] Examination: CT chest, abdomen and pelvis without [...] dysrhythmia - atrial us Jacinta Conklin MD [place] [facility] Final Result * [...] is included. 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1955 Requested By: MARIA DEL CARMEN BALDWIN Order Number: [id number] Reading MD: Estefania Boston Measurements Intervals [place] Rate: 59 P: 0 [place]: 305 QRS: -40 QRSD: 144 T: 122 QT: 442 QTc: 440 Interpretive Statements SINUS RHYTHM WITH FIRST DEGREE A-V BLOCK LEFT AXIS DEVIATION LEFT BUNDLE BRANCH BLOCK Procedure Note Estefania Boston MD - 02/28/2025 [facility] Test Date: 2025-02-28 Pat Name: OBIE SIMS Department: 70 Room: [place] [address] Gender: Male 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 LACTIC ACID VENOUS 0.8 0.4 - 2.0 MMOL/L 02/28/2025 5:29 PM CDT [facility] 02/28/2025 4:49 PM CDT us Maria Del Carmen REBOLLEDO LABORATORY Final Result Performing Organization Address [facility] Co de Phone Number [facility] [address] [place] [address], [phone] * (ABNORMAL) PRO-BRAIN NATRIURETIC PEPTIDE (02/28/2025 4:49 PM CDT) Only the most recent of7 resultswithin the time period is included. PRO-B TYPE NATRIURETIC PEPTIDE 5,946(H) <125 PG/ML 02/28/2025 5:42 PM CDT [facility] Comment: AGE INDEPENDENT: <300 PG/ML [...] REBOLLEDO LABORATORY Final Result Performing Organization Address [facility] de Phone Number [facility] [address] [place] [address], [phone] * TYPE AND SCREEN (02/28/2025 4:49 PM CDT) UNITS ORDERED 4 03/01/2025 1:41 AM CDT [facility] ABO/RH A POSITIVE 02/28/2025 5:53 PM CDT [facility] ANTIBODY SCREEN NEGATIVE 5:53 PM CDT [facility] SAMPLE EXPIRATION 03/03/2025,2359 02/28/2025 5:05 PM CDT [facility] BB COMMENT PATIENT HAS PREVIOUS ANTIBODY HISTORY WITH CURRENT NEGATIVE SCREEN. COMPATIBLE BLOOD WILL TAKE EXTRA TIME TO PREPARE. 02/28/2025 5:53 PM CDT [facility] BLOOD UNIT NUMBER [id number] 02/28/2025 6:36 PM CDT [facility] PRODUCT: PC LEUKOPOOR 02/28/2025 6:36 PM CDT [facility] UNIT DIVISION 00 02/28/2025 6:36 PM CDT [facility] BLOOD UNIT STATUS UNIT RELEASED 02/28/2025 6:36 PM CDT [facility] UNIT ANTIGEN TYPE FyA POS 02/28/2025 6:36 PM CDT [facility] TRANSFUSION STATUS DO NOT ISSUE FOR TRANSFUSION 02/28/2025 6:36 PM CDT [facility] BLOOD UNIT NUMBER [id number] 02/28/2025 6:36 PM CDT [facility] PRODUCT: PC LEUKOPOOR 02/28/2025 6:36 PM CDT [facility] UNIT DIVISION 00 02/28/2025 6:36 PM CDT [facility] BLOOD UNIT STATUS TRANSFUSED,FINAL 03/01/2025 7:00 AM CDT [facility] ISSUE DATE/TIME [id number] 025 7:00 AM CDT [facility] PRODUCT CODE [id number] 03/01/2025 7:00 AM CDT [facility] ABO/RH Unit A POS 03/01/2025 7:00 AM CDT [facility] ABO/RH UNIT ISBT CODE 6200 03/01/2025 7:00 AM CDT [facility] BLOOD UNIT EXPIRATION DATE [id number] 03/01/2025 7:00 AM CDT [facility] UNIT ANTIGEN TYPE FyA NEG 02/28/2025 6:36 PM CDT [facility] TRANSFUSION STATUS OK TO TRANSFUSE 02/28/2025 6:38 PM CDT [facility] CROSSMATCH COMPATIBLE 02/28/2025 6:36 PM CDT [facility] BLOOD UNIT NUMBER [id number] 02/28/2025 6:36 PM CDT [facility] PRODUCT: PC LEUKOPOOR 02/28/2025 6:36 PM CDT [facility] UNIT DIVISION 00 02/28/2025 6:36 PM CDT [facility] BLOOD UNIT STATUS UNIT RELEASED 02/28/2025 6:36 PM CDT [facility] UNIT ANTIGEN TYPE FyA POS 02/28/2025 6:36 PM CDT [facility] TRANSFUSION STATUS DO NOT ISSUE FOR TRANSFUSION 02/28/2025 6:36 PM CDT [facility] BLOOD UNIT NUMBER [id number] 02/28/2025 7:14 PM CDT [facility] PRODUCT: PC LEUKOPOOR 02/28/2025 7:14 PM CDT [facility] UNIT DIVISION 00 02/28/2025 7:14 PM CDT [facility] BLOOD UNIT STATUS UNIT RELEASED 02/28/2025 7:14 PM CDT [facility] UNIT ANTIGEN TYPE FyA POS 02/28/2025 7:14 PM CDT [facility] TRANSFUSION STATUS DO NOT ISSUE FOR TRANSFUSION 02/28/2025 7:14 PM CDT [facility] BLOOD UNIT NUMBER [id number] 02/28/2025 7:14 PM CDT [facility] PRODUCT: PC LEUKOPOOR 02/28/2025 7:14 PM CDT [facility] UNIT DIVISION 00 02/28/2025 7:14 PM CDT [facility] BLOOD UNIT STATUS UNIT RELEASED 02/28/2025 7:14 PM CDT [facility] UNIT ANTIGEN TYPE FyA POS 02/28/2025 7:14 PM CDT [facility] TRANSFUSION STATUS DO NOT ISSUE FOR TRANSFUSION 02/28/2025 7:14 PM CDT [facility] BLOOD UNIT NUMBER [id number] 02/28/2025 7:14 PM CDT [facility] PRODUCT: PC LEUKOPOOR 02/28/2025 7:14 PM CDT [facility] UNIT DIVISION 00 02/28/2025 7:14 PM CDT [facility] BLOOD UNIT STATUS TRANSFUSED,FINAL 03/01/2025 7:00 AM CDT [facility] ISSUE DATE/TIME [id number] 025 7:00 AM CDT [facility] PRODUCT CODE [id number] 03/01/2025 7:00 AM CDT [facility] ABO/RH Unit A POS 03/01/2025 7:00 AM CDT [facility] ABO/RH UNIT ISBT CODE 6200 03/01/2025 7:00 AM CDT [facility] BLOOD UNIT EXPIRATION DATE [id number] 03/01/2025 7:00 AM CDT [facility] UNIT ANTIGEN TYPE FyA NEG 02/28/2025 7:14 PM CDT [facility] TRANSFUSION STATUS OK TO TRANSFUSE 02/28/2025 7:42 PM CDT [facility] CROSSMATCH COMPATIBLE 02/28/2025 7:14 PM CDT [facility] BLOOD UNIT NUMBER [id number] 02/28/2025 8:22 PM CDT [facility] PRODUCT: PC LEUKO PHERE BAG2 02/28/2025 8:22 PM CDT [facility] UNIT DIVISION 00 02/28/2025 8:22 PM CDT [facility] BLOOD UNIT STATUS UNIT RELEASED 02/28/2025 8:22 PM CDT [facility] UNIT ANTIGEN TYPE FyA POS 02/28/2025 8:22 PM CDT [facility] TRANSFUSION STATUS DO NOT ISSUE FOR TRANSFUSION 02/28/2025 8:22 PM CDT [facility] BLOOD UNIT NUMBER [id number] 02/28/2025 8:22 PM CDT [facility] PRODUCT: PC LEUKOPOOR 02/28/2025 8:22 PM CDT [facility] UNIT DIVISION 00 02/28/2025 8:22 PM CDT [facility] BLOOD UNIT STATUS UNIT RELEASED 02/28/2025 8:22 PM CDT [facility] UNIT ANTIGEN TYPE FyA POS 02/28/2025 8:22 PM CDT [facility] TRANSFUSION STATUS DO NOT ISSUE FOR TRANSFUSION 02/28/2025 8:22 PM CDT [facility] BLOOD UNIT NUMBER [id number] 02/28/2025 8:22 PM CDT [facility] PRODUCT: PC LEUKOPOOR 02/28/2025 8:22 PM CDT [facility] UNIT DIVISION 00 02/28/2025 8:22 PM CDT [facility] BLOOD UNIT STATUS TRANSFUSED,FINAL 03/02/2025 5:26 AM CDT [facility] ISSUE DATE/TIME [id number] 025 5:26 AM CDT [facility] PRODUCT CODE [id number] 03/02/2025 5:26 AM CDT [facility] ABO/RH Unit A POS 03/02/2025 5:26 AM CDT [facility] ABO/RH UNIT ISBT CODE 6200 03/02/2025 5:26 AM CDT [facility] BLOOD UNIT EXPIRATION DATE [id number] 03/02/2025 5:26 AM CDT [facility] UNIT ANTIGEN TYPE FyA NEG 02/28/2025 8:22 PM CDT [facility] TRANSFUSION STATUS OK TO TRANSFUSE 02/28/2025 8:22 PM CDT [facility] CROSSMATCH COMPATIBLE 02/28/2025 8:22 PM CDT [facility] BLOOD UNIT NUMBER [id number] 03/01/2025 1:41 AM CDT [facility] PRODUCT: PC LEUKOPOOR 03/01/2025 1:41 AM CDT [facility] UNIT DIVISION 00 03/01/2025 1:41 AM CDT [facility] BLOOD UNIT STATUS UNIT RELEASED 03/03/2025 8:38 PM CDT [facility] UNIT ANTIGEN TYPE FyA NEG 03/01/2025 1:41 AM CDT [facility] TRANSFUSION STATUS OK TO TRANSFUSE 03/01/2025 1:41 AM CDT [facility] CROSSMATCH COMPATIBLE 03/01/2025 1:41 AM CDT [facility] BLOOD UNIT NUMBER [id number] 03/01/2025 1:41 AM CDT [facility] PRODUCT: PC LEUKOPOOR 03/01/2025 1:41 AM CDT [facility] UNIT DIVISION 00 03/01/2025 1:41 AM CDT [facility] BLOOD UNIT STATUS UNIT RELEASED 03/01/2025 1:41 AM CDT [facility] UNIT ANTIGEN TYPE FyA POS 03/01/2025 1:41 AM CDT [facility] TRANSFUSION STATUS DO NOT ISSUE FOR TRANSFUSION 03/01/2025 1:41 AM CDT [facility] BLOOD UNIT NUMBER [id number] 03/01/2025 1:41 AM CDT [facility] PRODUCT: PC LEUKOPOOR 03/01/2025 1:41 AM CDT [facility] UNIT DIVISION 00 03/01/2025 1:41 AM CDT [facility] BLOOD UNIT STATUS UNIT RELEASED 03/01/2025 1:41 AM CDT [facility] UNIT ANTIGEN TYPE FyA POS 03/01/2025 1:41 AM CDT [facility] TRANSFUSION STATUS DO NOT ISSUE FOR TRANSFUSION 03/01/2025 1:41 AM CDT [facility] 02/28/2025 4:49 PM CDT Maria Del Carmen REBOLLEDO BLOOD BANK TEST ORDERABLES Nicole rivera Result [facility] [address] [place] [address], [phone] * XR CHEST PA+LAT (02/28/2025 3:58 PM CDT) Only the most recent of2 resultswithin the time period is included. Anatomical Region Laterality Modality Chest Radiographic Stephie ging 02/28/2025 4:39 PM CDT Impressions 02/28/2025 4:41 PM CDT IMPRESSION: PROBABLE MILD CONGESTIVE HEART FAILURE/FLUID OVERLOAD. Referred By: Interpreted By: Piyush Zhang MD, 02/28/2025 4:39 PM Narrative 02/28/2025 4:41 PM [address] [address] EXAM: XR CHEST PA+LAT INDICATION: Weakness with [...] Procedure Note Piyush Zhang MD - 02/28/[address] [address] EXAM: XR CHEST PA+LAT INDICATION: Weakness with [...] - 145 MMOL/L 02/26/2025 1:26 PM CDT [facility] POTASSIUM S/P/B 3.0(L) 3.5 - 5.1 MMOL/L 02/26/2025 1:26 PM CDT [facility] CHLORIDE S/P/B 90(L) 98 - 107 MMOL/L 02/26/2025 1:26 PM CDT [facility] CO2 29.0 21.0 - 32.0 MMOL/L 02/26/2025 1:26 PM CDT [facility] GLUCOSE 112(H) 70 - 99 MG/DL 02/26/2025 1:26 PM CDT [facility] Comment: FASTING GLUCOSE 100 TO 125 MG/DL IS CONSISTENT WITH IMPAIRED FASTING GLUCOSE. FASTING GLUCOSE >125 MG/DL IS CONSISTENT WITH DIABETES. RANDOM GLUCOSE >200 MG/DL WITH HYPERGLYCEMIC SYMPTOMS IS CONSISTENT WITH DIABETES. PER [employer] GUIDELINES BUN 134(H) 6 - 24 MG/DL 02/26/2025 1:26 PM CDT [facility] CREATININE S/P/B 3.54(H) 0.70 - 1.30 MG/DL 02/26/2025 1:26 PM CDT [facility] CALCIUM S/P/B 8.4 8.4 - 10.5 MG/DL 02/26/2025 1:26 PM CDT [facility] ANION GAP 12.0 5.0 - 15.0 MMOL/L 02/26/2025 1:26 PM CDT [facility] OSMOLALITY (CALC) 316 MOSM/KG 025 1:26 PM CDT [facility] Comment:REFERENCE RANGE NOT ESTABLISHED GFR ESTIMATE 18(L) >89 ML/MIN/1. 73 M2 02/26/2025 1:26 PM CDT [facility] GFR NOTES GFR REFERENCE S: 02/26/2025 1:26 PM CDT [facility] Comment: THE ESTIMATED GFR [...] us Brit Gonzáles MD LABORATORY Final Result [facility] [address] [place] [address], * (ABNORMAL) CALCIUM, IONIZED (02/11/2025 11:56 AM CDT) CALCIUM IONIZED 1.06(L) 1.15 - 1.33 MMOL/L 02/11/2025 12:15 PM CDT [facility] 02/11/2025 11:5 6 AM CDT us Chidi Umanzor MD LABORATORY Final Result Performing Organization Address City/[facility]/ZIP Co de Phone Number [facility] [address] [place] [address], [place] [phone] * LDH BODY FLUID (02/08/2025 4:09 PM CDT) LDH (FLUID) 119 UNITS/L 02/08/2025 4:45 PM CDT [facility] Comment:REFERENCE RANGE NOT ESTABLISHED FOR THIS BODY FLUID. SOURCE (FLUID) PERITONEAL FLUID 02/08/2025 4:09 PM CDT [facility] PERITONEAL FLUID / Unknown 02/08/2025 4:09 PM CDT us Juanpablo Herman MD BODY FLUIDS AND STOOLS ORDER BAKARI Final Result Performing Organization Address [facility] Co de Phone Number [facility] [address] [place] [address], [place] [phone] * AMYLASE FLUID (02/08/2025 4:09 PM CDT) AMYLASE (BODY FLUID) 20 UNITS/L 02/08/2025 4:45 PM CDT [facility] Comment:REFERENCE RANGE NOT ESTABLISHED FOR THIS BODY FLUID. SOURCE (FLUID) PERITONEAL FLUID 02/08/2025 4:09 PM CDT [facility] PERITONEAL FLUID / Unknown 02/08/2025 4:09 PM CDT us Juanpablo Herman MD BODY FLUIDS AND STOOLS ORDER BAKARI Final Result Performing Organization Address City/[facility]/ZIP Co de Phone Number [facility] [address] [place] [address], [place] [phone] * PROTEIN TOTAL FLUID (02/08/2025 4:09 PM CDT) PROTEIN (FLUID) 3.8 G/DL 4:45 PM CDT [facility] Comment:REFERENCE RANGE NOT ESTABLISHED FOR THIS BODY FLUID. SOURCE (FLUID) PERITONEAL FLUID 02/08/2025 4:09 PM CDT [facility] PERITONEAL FLUID / Unknown 02/08/2025 4:09 PM CDT us Juanpablo Herman MD BODY FLUIDS AND STOOLS ORDER BAKARI Final Result [facility] [address] [place] [address], [place] [phone] * CELL COUNT W/ DIFF BODY FLUID (02/08/2025 4:09 PM CDT) SOURCE (FLUID) PERITONEAL FLUID 02/08/2025 5:20 PM CDT [facility] WBC (FLUID) 0.261 x10'3/uL 02/08/2025 5:20 PM CDT [facility] Comment:REFERENCE RANGE NOT ESTABLISHED RBC (FLUID) 0.008 x10'6/uL 02/08/2025 5:20 PM CDT [facility] Comment:REFERENCE RANGE NOT ESTABLISHED DIFFERENTIAL MANUAL DIFFERENTIAL PERFORMED ON CONCENTRATED CYTOSPIN 02/08/2025 4:09 PM CDT [facility] CELLS COUNTED 100 No COUNTED 02/08/2025 5:53 PM CDT [facility] SEGS (FLUID) 47 % 02/08/2025 5:49 PM CDT [facility] LYMPHS (FLUID) 41 % 02/08/2025 5:49 PM CDT [facility] OTHER MONONUCLEAR CELLS (FLD) 12 % 02/08/2025 5:49 PM CDT [facility] PERITONEAL FLUID / Unknown 02/08/2025 4:09 PM CDT us Juanpablo Herman MD BODY FLUIDS AND STOOLS ORDER BAKARI Final Result [facility] [address] [place] [address], [place] [phone] * ALBUMIN BODY FLUID (02/08/2025 4:09 PM CDT) ALBUMIN (FLUID) 1.8 G/DL 4:45 PM CDT [facility] Comment:REFERENCE RANGE NOT ESTABLISHED FOR THIS BODY FLUID. SOURCE (FLUID) PERITONEAL FLUID 02/08/2025 4:09 PM CDT [facility] PERITONEAL FLUID / Unknown 02/08/2025 4:09 PM CDT us Juanpablo Herman MD BODY FLUIDS AND STOOLS ORDER BAKARI Final Result Performing Organization Address [facility] Co de Phone Number [facility] [address] [place] [address], [place] [phone] * GLUCOSE, BODY FLUID (02/08/2025 4:09 PM CDT) GLUCOSE FLUID 163 MG/DL 02/08/2025 4:45 PM CDT [facility] Comment:REFERENCE RANGE NOT ESTABLISHED FOR THIS BODY FLUID. SOURCE (FLUID) PERITONEAL FLUID 02/08/2025 4:09 PM CDT [facility] PERITONEAL FLUID / Unknown 02/08/2025 4:09 PM CDT us Juanpablo Herman MD BODY FLUIDS AND STOOLS ORDER BAKARI Final Result Performing Organization Address City/[facility]/ZIP Co de Phone Number [facility] [address] [place] [address], [place] [phone] * CYTOLOGY GENERIC (02/08/2025 12:00 AM CDT) CYTOLOGY OTHER [facility] of Laboratory Medicine [address] [place] [address] , extension [phone] Pathology Report Non-gynecologic Cytology Report Name: OBIE SIMS Specimen #: [id number] Age: 12 1955 (Age: 69) Location: [address] Sex: M Procedure Date: 02/08/2025 Hospital #: [id number] Date Received: 02/12/2025 Date Reported: 02/13/2025 Provider: [...] interpretation, and sign out were performed at [facility], [address] [place] [address]. 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 Patient Name: Obie Sims : 1955 [facility]: [id number] Date of Testin01.10.2025 - 01.30.2025 Date of [...] Cardiac Electrophysiology Department of Cardiovascular Medicine Office: [phone] us Diamond Can MD CV VASCULAR ORDERABLES Nicole l Result [facility] * (ABNORMAL) D-DIMER, QUANTITATIVE (02/06/2025 3:03 PM CDT) D-DIMER 1,996(H) 0 - 500 ng{FEU}/mL 02/06/2025 3:35 PM CDT [facility] EXCLUSION STATEMENT 02/06/2025 3:35 PM CDT [facility] Comment: D-Dimer values less than or [...] us Alla Rodriguez NP LABORATORY Final Result [facility] [address] [place] [address], [id number] * XR CHEST PORTABLE (01/25/2025 3:04 PM [...] 3:06 PM Narrative 01/25/2025 3:08 PM CDT [address] [place] [address] 01/25/2025, 1452 hours. HISTORY: CHF. EXAM: Portable [...] - 01/25/2025 [facility] [address] [place] [address] 01/25/2025, 1452 hours. HISTORY: CHF. EXAM: Portable [...] 3:09 PM Narrative 01/25/2025 3:46 PM CDT [place] [address] [facility] [place] [address] 01/25/2025, 1453 hours. HISTORY: CHF. Abdominal distention. [...] - 01/25/2025 [facility] [address] [place] [address] 01/25/2025, 1453 hours. HISTORY: CHF. Abdominal distention. [...] SPEC DESCRIPTION BLOOD 01/25/2025 2:17 PM CDT [facility] SPECIAL REQUESTS NO SPECIAL REQUEST 01/25/2025 2:17 PM CDT [facility] CULTURE RESULT NO GROWTH 5 DAYS 01/30/2025 6:34 PM CDT [facility] BLOOD SPECIMEN OBTAINED FOR BLOOD CULTURE / Unknown 01/25/2025 2:41 PM CDT 01/25/2025 2:42 PM CDT Lawrence Kong MD MICROBIOLOGY - GENERAL [facility] Final Result [facility] [address] [place] [address], [place] [phone] [facility] [place] [address], [place] [phone] * USE TRANSESOPHAGEAL ECHO (01/08/2025 9:51 AM CDT) Anatomical Region Laterality Modality Cardiac Echocardiogram 01/08/2025 8:27 AM CDT Narrative 01/08/2025 9:31 PM CDT Transesophageal Echocardiography Report Pat.Name: OBIE SIMS Pat.ID: [id number] .Date: 01/08/2025 Refer: [id number] HALEIGH Monique EWDPROV EWDPROV Exam Time: 8:27:00 AM Study Type:TRANSESOPHAGEAL ECHO (NEMO) Height: 26 in Age: 12 1955,69Y Sex: M BP: 132/74 HR: 70 bpm Sonogrphr: Easton Lima RDCS, RVT Pat. Stat.:Inpatient CPT - 4: 31701 [id number] Reason for Study:Atrial fibrillation / flutter Procedures: [...] 01/08/2025 Transesophageal Echocardiography Report Pat.Name: OBIE SIMS.ID: [id number] .Date: 01/08/2025 : [id number] HALEIGH DON Eneida EWDPROV EWDPROV Exam Time: 8:27:00 AM Study Type:TRANSESOPHAGEAL ECHO (NEMO) Height: 26 in Age: 12 1955,69Y Sex: M BP: 132/74 HR: 70 bpm Sonogrphr: Easton Lima RDCS, RVT Pat. 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 Patient tolerated the procedure well, no immediate hemodynamiccomplications were noted. Impression: No echocardiographic evidence of thrombus Recommendations: 1. Proceed to cardioversion per EP Continue current management us Ronni Sanchez MD [place] ANESTHESIA Final Result * (ABNORMAL) RENAL FUNCTION PANEL (01/06/2025 1:01 PM CDT) SODIUM S/P/B 136 136 - 145 MMOL/L 01/06/2025 1:40 PM CDT [facility] POTASSIUM S/P/B 4.4 3.5 - 5.1 MMOL/L 01/06/2025 1:40 PM CDT [facility] CHLORIDE S/P/B 102 97 - 115 MMOL/L 01/06/2025 1:40 PM CDT [facility] CO2 27.8 21.0 - 32.0 MMOL/L 01/06/2025 1:40 PM CDT [facility] GLUCOSE 166(H) 74 - 106 MG/DL 01/06/2025 1:40 PM CDT [facility] BUN 46(H) 7 - 18 MG/DL 01/06/2025 1:40 PM CDT [facility] CREATININE S/P/B 2.02(H) 0.70 - 1.30 MG/DL 01/06/2025 1:40 PM CDT [facility] CALCIUM S/P/B 9.4 8.5 - 10.1 MG/DL 01/06/2025 1:40 PM CDT [facility] ALBUMIN S/P/B 3.0(L) 3.4 - 5.0 G/DL 01/06/2025 1:40 PM CDT [facility] PHOSPHORUS 3.8 2.5 - 4.9 MG/DL 01/06/2025 1:40 PM CDT [facility] ANION GAP 6.2 2.0 - 10.0 MMOL/L 01/06/2025 1:40 PM CDT [facility] OSMOLALITY (CALC) 298 MOSM/KG 025 1:40 PM CDT [facility] Comment:REFERENCE RANGE NOT ESTABLISHED GFR ESTIMATE 35(L) >90 ML/MIN/1. 73 M2 01/06/2025 1:40 PM CDT [facility] GFR NOTES GFR REFERENCE S: 01/06/2025 1:40 PM CDT [facility] Comment: THE ESTIMATED GFR IS [...] CDT Trace Gonsales MD LABORATORY Final Result [facility] [address] [place] [address], [phone] * US RETROPERITONEAL LTD (01/05/2025 7:33 PM [...] 1:35 AM Narrative 01/06/2025 1:38 AM CDT [facility] [address] [place], [place] [address] EXAMINATION: US RETROPERITONEAL LTD EXAM DATE: 01/05/2025 [...] Adan De La Rosa DO - 01/06/2025 [facility] [address] [place], [place] [address] EXAMINATION: US RETROPERITONEAL LTD EXAM DATE: 01/05/2025 [...] MYOCARDIAL PERFUSION SCAN Pat.Name: OBIE SIMS Dariana.ID: [id number] .Date: 01/04/2025 Refer.MD: BRIT GONZÁLES Exam Time: 10:47:00 AM Study Type:NC Ht Muscle Image SPECT Multi Nuclear Height: 66 in Weight: 222 lb BSA: 2.09 m2 Age: 12 1955,69Y Sex: M Sonogrphr: PARIS Sims Pat. Stat.:Inpatient Room: 642 Reason for Study:Progressive RUN LEAD; CHF Procedures: Regadenoson Stress, Stress Gated SPECT, [...] 01/05/2025 MYOCARDIAL PERFUSION SCAN Pat.Name: OBIE SIMS.ID: [id number] .Date: 01/04/2025 Refer.MD: BRIT GONZÁLES Exam Time: 10:47:00 AM Study Type:NC Ht Muscle Image SPECT Multi Nuclear Height: 66 in Weight: 222 lb BSA: 2.09 m2 Age: 12 1955,69Y Sex: M Sonogrphr: PARIS Sims Pat. Stat.:Inpatient Room: 642 Reason for Study:Progressive RUN LEAD; CHF Procedures: Regadenoson Stress, Stress Gated SPECT, [...] Brit Gonzáles M.D. us Brit Gonzáles MD [facility] Final Result * US TESTICULAR (01/02/2025 [...] 1:16 PM Narrative 01/02/2025 1:24 PM CDT [facility] [address] [place], [place] [address] Examination: US TESTICULAR Exam Date/Time: 01/02/2025 11:48 [...] - 01/02/2025 [facility] [address] [address] Examination: US TESTICULAR Exam Date/Time: 01/02/2025 11:48 [...] CDT Echocardiography Report Pat.Name: OBIE SIMS Pat.ID: [id number] .Date: 12/29/2024 : [id number] HALEIGH DON Eneida EWDPROV EWDPROV Exam Time: 11:15:00 AM Study Type:ECHO WITH CARDIAC DOPPLER COMP Height: 66 in Weight: 225 lb BSA: 2.1 m2 Age: 12 1955,69Y Sex: M BP: 124/73 HR: 76 bpm Sonogrphr: Dane Sanchez [facility] Pat. Stat.:Inpatient Room: 642 CPT - 4: [...] Mass 2D Value 212 g LV Mass [id number] Value 101 g/m2 RA Volume Atrial Schaffer [...] 5.38 cm Right Ventricle 4.25 cm Major Hopland 9.31 cm MMODE TA Tricuspid Annul 1.91 cm <Electronic Signature> 12/29/2024 06:41 PM Brit Gonzáles M.D. Procedure Note Brit Gonzáles MD - 12/29/2024 Echocardiography Report Pat.Name: OBIE SIMS Pat.ID: [id number] .Date: 12/29/2024 : [id number] HALEIGH Monique EWDPROV EWDPROV Exam Time: 11:15:00 AM Study Type:ECHO WITH CARDIAC DOPPLER COMP Height: 66 in Weight: 225 lb BSA: 2.1 m2 Age: 12 1955,69Y Sex: M BP: 124/73 HR: 76 bpm Sonogrphr: Dane Sanchez [facility] Pat. Stat.:Inpatient Room: 2 CPT - 4: [...] Mass 2D Value 212 g LV Mass [id number] Value 101 g/m2 RA Volume Atrial Schaffer [...] 5.38 cm Right Ventricle 4.25 cm Major Hopland 9.31 cm MMODE TA Tricuspid Annul 1.91 cm <Electronic Signature> 12/29/2024 06:41 PM Brit Gonzáles M.D. Isma Valentin MD ECHO Final Result * HEPATITIS C ANTIBODY (12/24/2022 3:05 PM CDT) HEPATITIS C AB NON-REACTI VE NON-REACT ALEK 12/25/2022 6:28 PM CDT [facility] Comment: ANTIBODIES TO HCV NOT DETECTED. DOES NOT EXCLUDE THE POSSIBILITY OF EXPOSURE TO HCV. 12/24/2022 3:05 PM CDT Katina Beltran MD LABORATORY Final Resu lt Performing Organization Address [facility]/ZIP Co de Phone Number [facility] [address] [place] [address], [phone] * LIPID PANEL (02/01/2022 11:27 AM CDT) CHOLESTEROL 151 MG/DL 02/01/2022 12:29 PM CDT [facility] Comment:DESIRABLE: <200 TRIGLYCERIDES 119 MG/DL 02/01/2022 12:29 PM CDT [facility] Comment:<150 NORMAL HDL 73 >39 MG/DL 02/01/2022 12:29 PM CDT [facility] LDL (CALCULATED) 54 MG/DL 02/02/20 22 12:29 PM CDT [facility] Comment:<100 OPTIMAL VLDL CALCULATION 24 MG/DL 02/02/20 12:29 PM CDT [facility] Comment:REFERENCE RANGE NOT ESTABLISHED CHOL/HDL RATIO 2.1 02/01/2022 12:29 PM CDT [facility] Comment:REFERENCE RANGE NOT ESTABLISHED LDL/HDL 0.7 02/01/2022 12:29 PM CDT [facility] Comment:REFERENCE RANGE NOT ESTABLISHED NON HDL CHOLESTEROL 78 MG/DL 02/01/2022 12:29 PM CDT [facility] Comment:REFERENCE RANGE NOT ESTABLISHED 02/01/2022 11:2 7 AM CDT Segundo Navarrete MD LABORATORY Final Result Performing Organization Address [facility]/ZIP Co de Phone Number [facility] [address] [place] [address], [place] [phone] * Colonoscopy (01/27/2022 6:48 AM CDT) Kilo Navarro MD GI PROCEDURE ORDERABLES Final Result from Last 3 Months or Most Recently Relevant to Health Maintenance Insurance MEDICAID [address] [address] Advance Directives Documents on File Type Date Recorded Patient Teleprinter Expl anation Advance Directives and Living Will 09/22/2024 3:38 PM Advance Directives and Living Will 02/22/2020 1:54 PM 04/11/2012 POLST Advance Directives and Living Will 11/06/2017 POWER OF ACTUARIAL SCIENCE PROFESSOR FO R HEALTH CARE Advance Directives and Living Will 01/04/2017 POWER OF ACTUARIAL SCIENCE PROFESSOR FO R HEALTH CARE Advance Directives and Living Will 01/04/2017 SHORT FORM POWER OF ACTUARIAL SCIENCE PROFESSOR Advance Directives and Living Will 05/13/2016 POWER OF ACTUARIAL SCIENCE PROFESSOR FO R HEALTH CARE Advance Directives and Living Will 05/13/2016 SHORT FORM POWER OF ACTUARIAL SCIENCE PROFESSOR Advance Directives and Living Will 04/06/2016 POWER OF ACTUARIAL SCIENCE PROFESSOR FO R HEALTH CARE Advance Directives and Living Will 03/23/2016 POWER OF ACTUARIAL SCIENCE PROFESSOR FO R HEALTH CARE Advance Directives and Living Will 01/27/2016 POWER OF ACTUARIAL SCIENCE PROFESSOR FO R HEALTH CARE Advance Directives and Living Will 10/23/2015 POWER OF ACTUARIAL SCIENCE PROFESSOR FO R HEALTH CARE Advance Directives and Living Will 10/21/2015 POWER OF ACTUARIAL SCIENCE PROFESSOR FO R HEALTH CARE Advance Directives and Living Will 10/21/2015 POWER OF ACTUARIAL SCIENCE PROFESSOR FO R HEALTH CARE Advance Directives and Living Will 10/21/2015 POWER OF ACTUARIAL SCIENCE PROFESSOR FO R HEALTH CARE Advance Directives and Living Will 10/01/2015 POWER OF ACTUARIAL SCIENCE PROFESSOR FO R HEALTH CARE Advance Directives and Living Will 08/08/2015 POWER OF ACTUARIAL SCIENCE PROFESSOR FO R HEALTH CARE Advance Directives and Living Will 06/25/2014 POWER OF ACTUARIAL SCIENCE PROFESSOR FO R HEALTH CARE Advance Directives and Living Will 05/23/2014 POWER OF ACTUARIAL SCIENCE PROFESSOR FO R HEALTH CARE * Full Code [...] 12:53 PM 02/06/2025 1:58 PM Care Teams Neuropsychology Director Relationship Specialty Start Date End Date Megan Infante MD [address] [place] [address] PCP - General FAMILY PRACTICE 04/06/16 [place] [address] Consulting Physician PULMONARY DISEASE 07/12/19 Concetta Acevedo MD [address] [place] [address] Surgeon NEUROLOGICAL SURGERY 12/16/22 Jeff Grace MD [address] [place] [address] Consulting Physician INTERNAL MEDICINE 02/11/23 Brit Gonzáles MD [address] [place] [address] Consulting Physician CARDIOVASCULAR DISEASE 12/29/23 [place] [address] [place], [place] [id number] OPHTHALMOLOGY 12/04/24 Corrie Pickard, side sawyer (Ambulatory) REGISTERED NURSE 12/26/24
--- OUTSIDE RECORDS SUMMARY | 2025-03-12 23:42 | XMS_ITS | Encounter Summary ---
Author Organization [facility] Address [address] [place] [address] Care Team Providers Care Briquetter Operator Name Role Phone Piyush Pandey MD Unavailable [phone] Megan Infante MD Primary Care Provider [phone] Sharmila Davis APRN, NP-C Unavailable [phone] Linda Block MD Unavailable [phone] Jeff Grace MD Unavailable Zaki Ortiz MD Unavailable [phone] Concetta Acevedo MD Unavailable [phone] Jeff Grace MD Unavailable Brit Gonzáles MD Unavailable Cirilo Pal MD Unavailable [phone] Corrie Pickard RN Unavailable Unavailab Encounter Details Date Type Department Care Team (Late st Contact Info) Description 11/06/2017 Abstract [facility] CONVERSION [address] [place], [place] [id number] , Generic Conversion, Social History Tobacco Use Types Packs/Day Years Used Date Smoking Tobacco: Former Smokeless Tobacco: Former Chew Alcohol Use Standard Drinks/Week Comments Yes 0 (1 standard drink = 0.6 oz pur e alcohol) 6 per week Sex and Gender Information Value Date Recorded Sex Assigned at Male 09/07/2024 10:[address] JUSTICE Legal Sex Male 10:01 PM CDT Gender Identity Male 09/07/2024 10:[address] JUSTICE Sexual Orientation Straight 09/07/2024 10 :[address] JUSTICE Occupation Industry Job Start Date Job End Date Not on file Not on file Not on file Not on file documented as of this encounter Plan of Treatment Upcoming Encounters Date Type Department Care Team (Late st Contact Info) Description 03/13/2025 10:00 AM CDT Home Care Visit [facility] [address] [place] [address] Dari Payne LPN 03/13/2025 10:00 AM CDT Home Care Visit [place] [address] [place] [address] Spring Gilbert, PT [address] [place] [address] 03/16/2025 9:15 AM CDT Home Care Visit [place] [address] [place] [address] Dari Payne LPN 03/20/2025 9:45 AM CDT Home Care Visit [address] [address] Mallika Dean RN 03/23/2025 12:45 PM CDT Home Care Visit [address] [address] Dari Payne LPN 03/28/2025 8:00 AM CDT Appointment [facility] [address] [place] [address] Cecile Hills, RN [phone] (Work) 04/02/2025 11:15 AM CDT Appointment [facility] [address] [address] Brit Gonzáles MD [address] [place] [address] 04/12/2025 1:00 PM CDT Office Visit [facility] [address] [place] [address] Lobo Allred, DRINKING WATER TECHNICIAN [address] [place] [address] 05/23/2025 11:45 AM CDT Office Visit [facility] [address] [place] [phone] Brit Gonzáles MD [address] [place] [address] 08/08/2025 1:[address] JUSTICE Office Visit [place] [address] [place] [phone] Brit Gonzáles MD [address] [place], [place] [phone] documented as of this encounter Visit Diagnoses Not on filedocumented in this encounter Additional Health Concerns Infection Onset Date Last Indicated Resolved Time COVID-19 Rule Out 03/02/2020 03/02/2020 03/03/2020 8:23 PM CDT COVID-19 Rule Out 07/03/2020 07/03/2020 07/04/2020 11:[address] JUSTICE COVID-19 Rule Out 09/07/2020 09/07/2020 09/08/2020 5:[address] JUSTICE COVID-19 Rule Out 10/05/2020 10/05/2020 10/06/2020 11:[address] JUSTICE COVID-19 Rule Out 02/08/2021 02/08/2021 02/08/2021 9:06 PM CDT COVID-19 Rule Out 01/24/2022 01/24/2022 01/24/2022 6:41 PM CDT COVID-19 Rule Out 01/04/2023 01/04/2023 01/04/2023 10:12 AM CDT documented as of this encounter Care Teams Briquetter Operator Relationship Specialty Start Date End Date Megan Infante MD [address] [facility] [place] [address] PCP - General FAMILY PRACTICE 04/06/16 Piyush Pandey MD [address] [place] [address] [place] [employer] Researcher CARDIOVASCULAR DISEASE 04/06/16 12/28/23 Sharmila Davis, CROWNING HAMMER OPERATOR, DRINKING WATER TECHNICIAN-C [address] [address] NURSE PRACTITIONER 01/04/17 04/03/24 Linda Block MD [address] [place] [address] [place] [employer] Res[employer] CLINICAL CARDIAC ELECTROPHYSIOLOGY 02/08/17 04/12/23 Jeff Grace MD [address] [address] Consulting Physician INTERNAL MEDICINE 02/20/19 3 Zaki Ortiz MD [address] [address] Consulting Physician PULMONARY DISEASE 07/12/19 Concetta Acevedo MD [address] [place] [id number] Surgeon NEUROLOGICAL SURGERY 12/16/22 Jeff Grace MD [address] [place] [address] Consulting Physician INTERNAL MEDICINE 02/11/23 Brit Gonzáles MD [address] [place] [address] Consulting Physician CARDIOVASCULAR DISEASE 12/29/23 [place] [address] [place] [address] OPHTHALMOLOGY 12/04/24 Corrie Pickard, foreign food specialty cook (Ambulatory) REGISTERED NURSE 12/26/24 documented as of this encounter
[2025-03-12 23:58] LABS: Immature Granulocyte Percent A 0.4 % (0.0-0.0); Immature Platelet Fraction Pct 6.9 % (1.0-7.0); Lymphocytes Absolute Auto 0.65 K/mm3 (1.10-4.50); Mean Corpuscular HGB Conc 29.4 g/dL (32-36); Mean Corpuscular Hemoglobin 23.8 pg (27.0-31.0); Mean Corpuscular Volume 81.2 fL (78.0-102.0); Nucleated Red Blood Cells Absolute Auto 0.00 K/mm3 (0.00-0.00); Nucleated Red Blood Cells Perc 0.0 % (0-0.0); Platelet Count Result 105 K/mm3 (150-420); Red Blood Count 2.39 M/mm3 (4.70-6.10); White Blood Count 8.1 K/mm3 (4.8-10.8)
[2025-03-13] VITALS (65 sets, daily range): BP systolic 82–116; BP diastolic 58–83; PULSE 51–71; RESP 18–20; TEMP 36.4–36.6; O2SAT 94–100
--- NOTE | 2025-03-13 | CONSULT_PTH ---
PATIENT: Mendez Lay LOC: [facility] U#:[id number] AGE/SX: 69/M ROOM: RE03/12/[address]: Cornel Castellon MD : 1955 BED: DIS: 03/13/2025 SPEC #: [id number] RECD: 03/13/25 08:38 STATUS: NOEL REQ #: [id number] KRYSTAL: 03/13/25 00:[address]: Cornel Castellon DEPT: [facility] Consult RECD BY: Iza Rand MLT, ([facility]) ENTERED: 03/13/25 08:38 SP TYPE: Consult OTHR DR: Megan Infante MD Tissues: A - Peripheral Smear Procedures: Hematology Consult
[2025-03-13 00:05] LABS: Hematocrit 19.4 % (37.0-46.0); Hemoglobin 5.7 g/dL (12.4-15.3)
[2025-03-13 00:14] LABS: INR 1.3; Partial Thromboplastin Time 30.7 Sec (23.9-30.70); Prothrombin Time 14.1 Seconds (9.50-12.1)
[2025-03-13 00:18] LABS: Alanine Aminotransferase 14 U/L (6-50); Albumin Level 3.2 g/dL (3.5-5.1); Alkaline Phosphatase 82 U/L (38-126); Anion Gap 8 mmol/L (4-12); Aspartate Amino Transferase 28 U/L (17-59); Bilirubin,Total 0.7 mg/dL (0.2-1.3); Blood Urea Nitrogen > 120 mg/dL (9-20); Calcium 7.3 mg/dL (8.4-10.2); Carbon Dioxide 31 mmol/L (22-30); Chloride 88 mmol/L (98-107); Estimated CRCL calculation 26 ml/min; Estimated Glomerular Filt Rate 24; Glucose 119 mg/dL (65-110); Osmolality Calculated 303 mOsm/kg (285-295); Potassium 3.7 mmol/L (3.4-5.0); Sodium 127 mmol/L (137-145); Total Protein 6.1 g/dL (6.3-8.2)
[2025-03-13 00:29] LABS: NT Pro B Type Natriuretic Pept 9110 pg/mL (19.9-100)
[2025-03-13 00:44] LABS: Troponin I 0.095 ng/mL (0.000-0.034)
[2025-03-13] MEDS: SODIUM CHLORIDE 0.9% IV 250 ML 30 ML IV CONT (01:30)
[2025-03-13 02:16] LABS: Add Urine Microscopic? YES; Appearance Urine Clear (Clear); Glucose Urine UA Negative (Negative); Leukocyte Esterase Ur 1+ LEU/UL (Negative); Nitrate Urine Negative (Negative); Specific Grav Ur <= 1.005 (1.010-1.020)
--- NOTE | 2025-03-13 03:31 | PC.NURSE ---
spoke with patients' daughter (Bonnie), was given update and she agrees with plan of care and transferring patient back to [facility] if necessary.
--- NOTE | 2025-03-13 04:38 | ED_ITS ---
HPI - Weakness General Chief complaint: Weakness Stated complaint: weakness Time Seen by Provider: 03/12/25 23:06 Source: patient Mode of arrival: EMS Limitations: no limitations History of Present Illness HPI Narrative: Patient is a 69-year-old male that was recently released from [facility] for paracentesis and 4 L removed here for generalized weakness. 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 He was felt to be anemic. He has a longstanding multiple medical problem list to include AFib with Adrian. Complaint: generalized weakness Onset (ago): day(s) ( Two) Duration: constant Location: generalized Migration: none Severity: moderate Severity scale (1-10): 4 Quality: other ( no pain) Relieving factors: none Exacerbating factors: none Context: recent illness ( hospitalized at [facility] recently for multiple medical problems to include paracentesis for CHF) Associated symptoms: denies other symptoms Related Data Home Medications ?Medication ?Instructions ?Recorded ?Confirmed ?Last Taken ?Type albuterol sulfate 90 mcg/actuation 2 puff inhalation Q4H PRN 07/03/20 09/21/24 07/31/24 21:35 History aerosol inhaler (Ventolin HFA) Shortness Of Breath allopurinol 300 mg tablet 300 mg PO DAILY 07/03/20 09/21/24 09/21/24 09:00 History atorvastatin 80 mg tablet 80 mg PO HS 07/03/20 09/21/24 09/20/24 21:00 History pantoprazole 40 mg tablet,delayed 40 mg PO DAILY 07/03/20 09/21/24 02/09/23 History release sertraline 50 mg tablet 50 mg PO DAILY 07/03/20 09/21/24 09/21/24 09:00 History docusate sodium 100 mg capsule 100 mg PO DAILY PRN Constipation 02/01/22 09/21/24 02/09/23 History fluticasone fur. 100 mcg-umeclid 1 inh inhalation DAILY 02/09/23 09/21/24 Unknown History 62.5 mcg-vilant 25 mcg inhalat.powder (Trelegy Ellipta) hydroxyzine HCl 50 mg tablet 50 mg PO TID PRN itch 02/09/23 09/21/24 Unknown History folic acid 1 mg tablet 1 mg PO DAILY 08/28/24 09/21/24 09/21/24 09:00 History nystatin 100,000 unit/gram topical 1 applic topical BID 08/28/24 09/21/24 Unknown History powder (Nystop) pregabalin 150 mg capsule (Lyrica) 150 mg PO BID 08/28/24 09/21/24 09/21/24 09:00 History semaglutide 1 mg/dose (4 mg/3 mL) 1 mg subcut WEEKLY 08/28/24 09/21/24 Unknown History subcutaneous pen injector (Ozempic) semaglutide 1 mg/dose (4 mg/3 mL) 1 mg subcut WEEKLY 08/28/24 09/21/24 Unknown History subcutaneous pen injector (Ozempic) aspirin 81 mg chewable tablet 81 mg PO DAILY 09/21/24 09/21/24 09/21/24 09:00 History clotrimazole-betamethasone 1 1 applic topical BID 09/21/24 09/21/24 09/20/24 21:50 History %-0.05 % topical cream insulin glargine 100 unit/mL (3 18 unit subcut QPM 09/21/24 09/21/24 09/20/24 22:30 History mL) subcutaneous pen (Lantus Solostar U-100 Insulin) insulin lispro 100 unit/mL 6 unit subcut .with meals 09/21/24 09/21/24 Unknown History subcutaneous pen Allergies Allergy/AdvReac Type Severity Reaction Status Date / Time No Known Allergies Allergy Verified 03/13/25 00:41 Review of Systems 2 Review of Systems: All systems reviewed & are unremarkable except as noted in HPI and below Constitutional: Constitutional: Reports no additional constitutional complaints Eyes: Eyes: Reports no additional eye complaints ENT: Reports system reviewed and no additional complaints, except as documented Cardiovascular: Cardiovascular: Reports no additional cardiovascular complaints Respiratory: Respiratory: Reports no additional respiratory complaints Gastrointestinal: Gastrointestinal: Reports no additional gastrointestinal complaints Genitourinary: Genitourinary: Reports no additional male genitourinary complaints Musculoskeletal: Musculoskeletal: Reports no additional musculoskeletal complaints Integumentary/Breasts: Skin/Breast: Reports system reviewed and no additional complaints, except as docu Neurologic: Reports system reviewed and no additional complaints, except as documented Psychiatric: Psychiatric: Reports no additional psychiatric complaints Endocrine: Endocrine: Reports no additional endocrine complaints Hematologic/Lymphatic: Hematologic/Lymphatic: Reports no additional hematologic/lymphatic complaints Allergic/Immunologic: Allergic/Immunologic: Reports no additional allergic/immunologic complaints [facility] Past Medical History Medical History Obstructive sleep apnea Obstructive sleep apnea Intolerant to CPAP Chronic anemia Chronic right-sided heart failure Moderate decreased right ventricular systolic function noted on echo 12/2022 Combined systolic and diastolic congestive heart failure Echocardiogram 12/2022: EF 37% grade 2 diastolic dysfunction, mild LVH Severe pulmonary hypertension Restless leg syndrome CVA (cerebral vascular accident) Evidence of old temporal CVA noted on imaging 12/22/2023 Bilateral carotid artery stenosis Peripheral artery disease Right rib fracture Diabetes mellitus Historically poorly controlled with last A1c 10/2023 of 10.2 CKD (chronic kidney disease) Stage IV with baseline creatinine 1.4-1.8 Depression COPD (chronic obstructive pulmonary disease) Diabetic neuropathy Gout Afib On chronic anticoagulation with Coumadin CAD (coronary artery disease) Nuclear medicine stress test 01/2022: Medium area of [id number] intensity fixed defect consistent with infarction in the inferior and basal inferior [place], EF is 51% Hyperlipidemia Surgical History Surgical History History of left hip replacement History of bilateral knee replacement History of aortic valve replacement with bioprosthetic valve (~2013) History of cardiac catheterization Family History Family History Mother Tuberculosis Social History Social History Social History: The patient is for with for 46 years. His a couple of years ago. He now lives with his daughter. He ambulates with a cane. 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 He briefly smoked when he was young for 1 or 2 years. He denies any significant alcohol use or illicit substance use. Code status: Full code Smoking packs per day: 1 Smoking cigarettes per day: 20.0 Years smoked: 2 Smoking pack-years: 2.00 Smoking status: Former smoker Tobacco type: cigarettes Smokeless tobacco user: chewing tobacco Second hand tobacco smoke exposure: Yes Smoking end date: 09/02/1967 Alcohol intake: never Drinks per week: 2 Substance use: never Substance use type: does not use Do You Feel Safe in your Home?: Yes Lack of Transportation: No Lack of Food: Never True Current Housing: I Have Housing Concerned About Future Housing: No Difficulty Paying Gas/Electric Bills: No Difficulty Paying for Meds: No Currently Unemployed: No Education: High School Diploma/GED Difficulty w/ Childcare or Family Care: No Gender identity (if verbalized by the patient): Male Sexual Orientation (if Verbalized by the Patient): Straight or Heterosexual Spiritual care concerns: No Exam 2 Const: General: no acute distress Nutritional Appearance: well nourished Orientation/consciousness: patient oriented x3 Other: pale-appearing HENMT: Head: normal to inspection Ears: external ears normal F fabricio/Nose/Sinus: Normal external nose present Eyes: Conjunctivae: conjunctivae normal Pupils: Equal, round and reactive pupils present EOM: EOMs intact bilaterally Neck: Neck: normal visual inspection Chest: Chest palpation & inspection: normal inspection of the chest Resp: Effort & Inspection: normal respiratory effort and not labored A uscultation: clear to auscultation bilaterally, no crackles and diminished lung sounds Cardio: Rate: regular rate Rhythm: abnormal rhythm irregularly irregular Heart sounds: no murmurs GI: Inspection: distended GI Palp: Yes Soft to palpation and No Tenderness to palpation present (GI) Auscultation: normal bowel sounds : General: Yes bladder normal to palpation Back/Spine/Pelvis: Back: no CVA tenderness Skin: General skin exam: normal color Rashes: no rashes Wounds: no wounds Neuro: General: patient oriented x3 Cranial nerves: Yes Nystagmus not present Speech: normal speech Extrem: General: normal to inspection Psych: Mental Status: mental status grossly normal Affect: normal affect Attitude: cooperative Course Vital Signs Vital signs: Vital Signs Pulse Rate 68 03/12/25 23:03 Temperature 36.6 C 03/13/25 02:15 Pulse Rate 66 03/13/25 06:01 Respiratory Rate 18 03/13/25 02:15 Blood Pressure 92/65 L 03/13/25 06:01 Pulse Oximetry 99 03/13/25 05:16 Oxygen Delivery Room Air 03/12/25 23:20 MDM - Weakness MDM Narrative Medical decision making narrative: patient is a 69-year-old male with general weakness and multiple medical issues that could be correlated with the weakness as well as history of anemia and CHF and AFib. We will do a workup at this time for sepsis and cardiovascular. Patient's workup shows CHF, acute kidney injury/ kidney failure, anemia and elevated troponin without chest pain. We will transfer patient back to [facility] for higher level medical care. Lab Data Attestation: I reviewed the patient's lab results. 03/12/25 23:52 03/12/25 23:52 Labs: Lab Results 03/12/25 03/12/25 03/13/25 Range/Units 23:16 23:52 00:11 WBC 8.1 (4.8-10.8) K/mm3 RBC 2.39 L (4.70-6.10) M/mm3 Hgb 5.7 L* (12.4-15.3) g/dL Hct 19.4 L* (37.0-46.0) % MCV 81.2 (78.0-102.0) fL MCH 23.8 L (27.0-31.0) pg MCHC 29.4 L (32-36) g/dL RDW 19.0 H (11.6-14.4) % Plt Count 105 L (150-420) K/mm3 MPV 12.3 H (8.7-11.0) fl Immature Gran % (Auto) 0.4 H (0.0-0.0) % Neut % (Auto) 81.8 H (50.0-70.0) % Lymph % (Auto) 8.0 L (18.0-42.0) % Chambers % (Auto) 9.6 (2.0-11.0) % Eos % (Auto) 0.1 L (1.0-6.0) % Baso % (Auto) 0.1 (0.0-1.0) % Lymph # (Auto) 0.65 L (1.10-4.50) K/mm3 Chambers # (Auto) 0.78 (0.10-0.90) K/mm3 Eos # (Auto) 0.01 L (0.02-0.50) K/mm3 Baso # (Auto) 0.01 (0.00-0.10) K/mm3 Abs Immat Gran (auto) 0.03 H (0.00-0.00) K/mm3 Absolute Neuts (auto) 6.62 (1.70-7.20) K/mm3 Absolute Nucleated RBC 0.00 (0.00-0.00) K/mm3 Nucleated RBC % 0.0 (0-0.0) % % Immature Plt Fraction 6.9 (1.0-7.0) % PT 14.1 H (9.50-12.1) Seconds INR 1.3 APTT 30.7 (23.9-30.70) Sec Sodium 127 L (137-145) mmol/L Potassium 3.7 (3.4-5.0) mmol/L Chloride 88 L (98-107) mmol/L Carbon Dioxide 31 H (22-30) mmol/L Anion Gap 8 (4-12) mmol/L BUN > 120 H* D (9-20) mg/dL Creatinine 2.67 H (0.7-1.3) mg/dL Estim Creat Clear Calc 26 ml/min Estimated GFR 24 L (59 - ) Glucose 119 H (65-110) mg/dL POC Capillary Glucose 170 H (65-105) mg/dl Calculated Osmolality 303 H (285-295) mOsm/kg Lactic Acid 1.3 (0.4-2.0) mmol/L Calcium 7.3 L (8.4-10.2) mg/dL Total Bilirubin 0.7 (0.2-1.3) mg/dL AST 28 (17-59) U/L ALT 14 (6-50) U/L Alkaline Phosphatase 82 (38-126) U/L Troponin I 0.095 H* (0.000-0.034) ng/mL NT-Pro-B Natriuret Pep 9110 H (19.9-100) pg/mL Total Protein 6.1 L (6.3-8.2) g/dL Albumin 3.2 L (3.5-5.1) g/dL Urine Color Light yellow (Yellow) Urine Appearance Clear (Clear) Urine pH 5.5 (5.0-8.0) Ur Specific [place] <= 1.005 L (1.010-1.020) Urine Protein Negative (Negative) Urine Glucose (UA) Negative (Negative) Urine Ketones Negative (Negative) Ur Blood (Man) 1+ H (Negative) Urine Nitrate Negative (Negative) Urine Bilirubin Negative (Negative) Urine Urobilinogen 0.2 (0.2-1.0) mg/dL Leukocyte Esterase Rfl 1+ H (Negative) CARLOS/UL Urine RBC 3-5 H (0-2) /hpf Urine WBC 7-9 H (0-3) /hpf Ur Squamous Epith Cells None seen (Few) /hpf Urine Bacteria 2+ H (None) /hpf Blood Type A Positive Antibody Screen Negative Crossmatch See Detail Imaging Data Attestation: I personally reviewed and interpreted this imaging study as follows: Radiologist's impression: Chest x-ray is negative for acute process ECG Data EKG #1: Attestation: I personally reviewed and interpreted this ECG as follows: ECG completion date: 03/13/25 ECG completion time: 06:23 EKG Interpretation: normal rate, sinus rhythm, non-specific ST changes, widened QRS, LBBB, normal QT and left axis Discharge Plan Discharge Clinical Impression: ALICIA (acute kidney injury), Elevated troponin, Chronic atrial fibrillation, Weakness Anemia Qualifiers: Anemia type: other cause Other causes of anemia: other cause, not classified Q ualified Code(s): D64.89 - Other specified anemias CHF (congestive heart failure) Qualifiers: Heart failure type: unspecified Heart failure chronicity: unspecified Qualified Code(s): I50.9 - Heart failure, unspecified Patient Disposition: Acute Care Hospital Condition: Guarded Prognosis Patient Language: [place] Prescriptions: No Action insulin glargine [Lantus Solostar U-100 Insulin] 100 unit/mL (3 mL) insulin pen 18 unit SUBCUT QPM insulin lispro 100 unit/mL insulin pen 6 unit SUBCUT .with meals aspirin 81 mg tablet,chewable 81 mg PO DAILY Rx Instructions: Chew 81 mg by mouth daily. clotrimazole-betamethasone 1-0.05 % cream 1 applic topical BID warfarin 5 mg tablet 5 mg PO DAILY Qty: 30 0RF warfarin 2 mg tablet 2 mg PO DAILY Qty: 30 0RF bumetanide 2 mg tablet 2 mg PO BID Qty: 60 0RF trazodone 100 mg tablet 300 mg PO HS Qty: 90 0RF hydrocodone-acetaminophen 7.5-325 mg Tablet 1 tablet PO Q8H PRN (Reason: Pain, Moderate) Qty: 20 0RF metoprolol succinate 25 mg tablet extended release 24 hr 25 mg PO DAILY Qty: 30 0RF Jardiance 25 mg Tablet 25 mg PO DAILY Qty: 30 0RF allopurinol 300 mg tablet 300 mg PO DAILY sertraline 50 mg tablet 50 mg PO DAILY atorvastatin 80 mg tablet 80 mg PO HS pantoprazole 40 mg tablet,delayed release (DR/EC) 40 mg PO DAILY albuterol sulfate [Ventolin HFA] 90 mcg/actuation Hfa Aerosol Inhaler 2 puff INHALATION Q4H PRN (Reason: Shortness Of Breath) docusate sodium 100 mg Capsule 100 mg PO DAILY PRN (Reason: Constipation) hydroxyzine HCl 50 mg Tablet 50 mg PO TID MDD 3 PRN (Reason: itch) Trelegy Ellipta 100-62.5-25 mcg Blister With Device 1 inh INHALATION DAILY nystatin [Nystop] 100,000 unit/gram powder 1 applic TOPICAL BID Patient Comments: Apply to groin, under abd fold folic acid 1 mg tablet 1 mg PO DAILY Rx Instructions: Take 1 mg by mouth daily. Ozempic 1 mg/dose (4 mg/3 mL) pen injector 1 mg subcut WEEKLY pregabalin [Lyrica] 150 mg capsule 150 mg PO BID Ozempic 1 mg/dose (4 mg/3 mL) pen injector 1 mg subcut WEEKLY Follow-up/Referrals: Megan Infante MD [Primary Care Provider] - Time of Disposition: 05:09
--- NOTE | 2025-03-15 13:12 | PC.NURSE ---
PRELIMINARY URINE AND BLOOD CULTURE FAXED TO [facility] [phone]
--- NOTE | 2025-03-16 12:22 | PC.NURSE ---
blood culture, preliminary, no growth
--- NOTE | 2025-03-17 13:00 | PC.NURSE ---
preliminary blood cultures x2 reviewed. no growth to date
--- NOTE | 2025-03-17 13:08 | PC.NURSE ---
final urine culture report reviewed. klebsiella pneumoniae isolated. pt was transferred to [facility] in [place]. nurse wei contacted at [facility]. culture report information shared. report faxed to wei at [facility]
--- NOTE | 2025-03-20 13:13 | PC.NURSE ---
FINAL BLOOD CULTURE REPORT; NO GROWTH IN 5 DAYS.
== END 2025-03-13 07:35 | disposition short-term general hospital (02) ==
PROVIDERS: Emergency Provider Emergency Medicine; PCP Family Medicine
DX: N17.9 Acute kidney failure, unspecified (principal); I48.20 Chronic atrial fibrillation, unspecified; R79.89 Other specified abnormal findings of blood chemistry; R53.1 Weakness; D64.89 Other specified anemias; I13.2 Hypertensive heart and chronic kidney disease with heart failure and with stage 5 chronic kidney disease, or end stage renal disease; I50.9 Heart failure, unspecified; N18.5 Chronic kidney disease, stage 5; E11.22 Type 2 diabetes mellitus with diabetic chronic kidney disease; I25.10 Atherosclerotic heart disease of native coronary artery without angina pectoris; E78.5 Hyperlipidemia, unspecified; Z87.891 Personal history of nicotine dependence; Z79.01 Long term (current) use of anticoagulants
CPT/HCPCS: 36415; 36430; 71045; 80053; 81001; 82948; 83605; 83880; 84484; 85025; 85055; 85610; 85730; 86850; 86900; 86901; 86920; 87040; 87086; 93005; 96360; 96361; 99285; J7050; P9016

== ENCOUNTER 2025-04-24 19:50 | Emergency (ER) | payer MEDICARE, SELFPAY ==
[2025-04-24] VITALS (15 sets, daily range): BP systolic 98–124; BP diastolic 64–102; PULSE 53–116; RESP 13–18; TEMP 36.4; O2SAT 90–100
--- NOTE | ~2025-04-24 | XR_ITS ---
XR chest 1V portable 04/24/2025 20:41 Indication: Weakness Procedure: AP portable chest Comparison: Comparison to multiple prior studies sequentially, with oldest reviewed study dated 12/22/2023. Findings: Bilateral asymmetric airspace disease, right greater than left. Status post median sternotomy for CABG. Moderate cardiomegaly. No significant effusion or pneumothorax. Impression: 1: Bilateral asymmetric airspace disease, most likely edema. 2: Moderate cardiomegaly. Reviewed, dictated and finalized at location O. Impression: 1: Bilateral asymmetric airspace disease, most likely edema. 2: Moderate cardiomegaly.
--- NOTE | 2025-04-24 20:00 | PC.NURSE ---
DR CHAWLA AT THE BEDSIDE
--- NOTE | 2025-04-24 20:11 | ECG_ITS ---
Test Date: 2025-04-24 20:21:04 Measurements Intervals [place] Rate: 62 P: 0 NV: 0 QRS: -41 QRSD: 134 T: 128 QT: 444 QTc: 454 Interpretive Statements ATRIAL FIBRILLATION LEFT AXIS DEVIATION [QRS AXIS < -30] LEFT BUNDLE BRANCH BLOCK [120+ ms QRS DURATION, 80+ ms Q/S IN V1/V2, 85+ ms R IN I/aVL/V5/V6] ABNORMAL ECG Compared to ECG 03/12/2025 23:15:34 No significant changes Electronically Signed On 04-25-2025 11:39:09 CDT by Misael Courtney M.D.
--- NOTE | 2025-04-24 20:11 | ED.WEAKNESS ---
HPI - Weakness General Chief complaint: Weakness Stated complaint: WEAKNESS Time Seen by Provider: 04/24/25 20:10 Source: patient and family Mode of arrival: ambulatory Limitations: no limitations History of Present Illness HPI Narrative: 69 YEARS OLD WHITE MALE CAME FROM HOME BY PRIVATE CAR WITH HIS DAUGHTER WHO IS TELLING ME THAT SHE WAS DRIVING THE PATIENT TO [facility] AND HE LOOKED WEAK AND LETHARGIC, GOT SCARED AND BROUGHT HIM TO OUR EMERGENCY ROOM. PATIENT MAIN COMPLAINT IS LEG PAIN FOR WEEKS/ MONTHS GOT WORSE TODAY. HOME HEALTH CARE, STATUS POST ABDOMINAL CENTESIS, 6 LATER, 1 WEEK AGO. PATIENT USUALLY HAVE ABDOMINAL CENTESIS EVERY 2 WEEKS. PATIENT GAINED 15 LB OVER THE LAST FEW DAYS. HISTORY OF HYPOTENSION AND CURRENTLY ON MIDODRINE NEEDED HISTORY OF DIABETES, HYPERTENSION, HYPERLIPIDEMIA, COPD, VALVE REPLACEMENT, CORONARY STENTS, TIA, GI BLEED BLEED, PORTAL HYPERTENSION, LIVER CIRRHOSIS WITH ASCITES, CURRENTLY ON ELIQUIS. PATIENT IS DNR. Related Data Home Medications ?Medication ?Instructions ?Recorded ?Confirmed ?Last Taken ?Type albuterol sulfate 90 mcg/actuation 2 puff inhalation Q4H PRN 07/03/20 09/21/24 07/31/24 21:35 History aerosol inhaler (Ventolin HFA) Shortness Of Breath allopurinol 300 mg tablet 300 mg PO DAILY 07/03/20 09/21/24 09/21/24 09:00 History atorvastatin 80 mg tablet 80 mg PO HS 07/03/20 09/21/24 09/20/24 21:00 History pantoprazole 40 mg tablet,delayed 40 mg PO DAILY 07/03/20 09/21/24 02/09/23 History release sertraline 50 mg tablet 50 mg PO DAILY 07/03/20 09/21/24 09/21/24 09:00 History docusate sodium 100 mg capsule 100 mg PO DAILY PRN Constipation 02/01/22 09/21/24 02/09/23 History fluticasone fur. 100 mcg-umeclid 1 inh inhalation DAILY 02/09/23 09/21/24 Unknown History 62.5 mcg-vilant 25 mcg inhalat.powder (Trelegy Ellipta) hydroxyzine HCl 50 mg tablet 50 mg PO TID PRN itch 02/09/23 09/21/24 Unknown History folic acid 1 mg tablet 1 mg PO DAILY 08/28/24 09/21/2425 09:00 History nystatin 100,000 unit/gram topical 1 applic topical BID 08/28/24 09/21/24 Unknown History powder (Nystop) pregabalin 150 mg capsule (Lyrica) 150 mg PO BID 08/28/24 09/21/24 09/21/24 09:00 History semaglutide 1 mg/dose (4 mg/3 mL) 1 mg subcut WEEKLY 08/28/24 09/21/24 Unknown History subcutaneous pen injector (Ozempic) semaglutide 1 mg/dose (4 mg/3 mL) 1 mg subcut WEEKLY 08/28/24 09/21/24 Unknown History subcutaneous pen injector (Ozempic) aspirin 81 mg chewable tablet 81 mg PO DAILY 09/21/24 09/21/24 09/21/24 09:00 History clotrimazole-betamethasone 1 1 applic topical BID 09/21/24 09/21/24 09/20/24 21:50 History %-0.05 % topical cream insulin glargine 100 unit/mL (3 18 unit subcut QPM 09/21/24 09/21/24 09/20/24 22:30 History mL) subcutaneous pen (Lantus Solostar U-100 Insulin) insulin lispro 100 unit/mL 6 unit subcut .with meals 09/21/24 09/21/24 Unknown History subcutaneous pen Allergies Allergy/AdvReac Type Severity Reaction Status Date / Time No Known Allergies Allergy Verified 04/24/25 20:04 Review of Systems Review of Systems: All systems reviewed & are unremarkable except as noted in HPI and below [facility] Past Medical History Medical History Obstructive sleep apnea Obstructive sleep apnea Intolerant to CPAP Chronic anemia Chronic right-sided heart failure Moderate decreased right ventricular systolic function noted on echo 12/2022 Combined systolic and diastolic congestive heart failure Echocardiogram 12/2022: EF 37% grade 2 diastolic dysfunction, mild LVH Severe pulmonary hypertension Restless leg syndrome CVA (cerebral vascular accident) Evidence of old temporal CVA noted on imaging 12/22/2023 Bilateral carotid artery stenosis Peripheral artery disease Right rib fracture Diabetes mellitus Historically poorly controlled with last A1c 10/2023 of 10.2 CKD (chronic kidney disease) Stage IV with baseline creatinine 1.4-1.8 Depression COPD (chronic obstructive pulmonary disease) Diabetic neuropathy Gout Afib On chronic anticoagulation with Coumadin CAD (coronary artery disease) Nuclear medicine stress test 01/2022: Medium area of [id number] intensity fixed defect consistent with infarction in the inferior and basal inferior knox, EF is 51% Hyperlipidemia Surgical History Surgical History History of left hip replacement History of bilateral knee replacement History of aortic valve replacement with bioprosthetic valve (~2013) History of cardiac catheterization Family History Family History Mother Tuberculosis Social History Social History Social History: The patient is for with for 46 years. His a couple of years ago. He now lives with his daughter. He ambulates with a cane. 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 He briefly smoked when he was young for 1 or 2 years. He denies any significant alcohol use or illicit substance use. Code status: Full code Smoking packs per day: 1 Smoking cigarettes per day: 20.0 Years smoked: 2 Smoking pack-years: 2.00 Smoking status: Former smoker Tobacco type: cigarettes Smokeless tobacco user: chewing tobacco Second hand tobacco smoke exposure: Yes Smoking end date: 09/02/1967 Alcohol intake: never Drinks per week: 2 Substance use: never Substance use type: does not use Do You Feel Safe in your Home?: Yes Lack of Transportation: No Lack of Food: Never True Current Housing: I Have Housing Concerned About Future Housing: No Difficulty Paying Gas/Electric Bills: No Difficulty Paying for Meds: No Currently Unemployed: No Education: High School Diploma/GED Difficulty w/ Childcare or Family Care: No Gender identity (if verbalized by the patient): Male Sexual Orientation (if Verbalized by the Patient): Straight or Heterosexual Spiritual care concerns: No Exam Narrative: GENERAL APPEARANCE: WELL-DEVELOPED, WELL-NOURISHED SKIN: NORMAL COLOR HEAD: NORMOCEPHALIC, NONTRAUMATIC EYES: CLEAR CONJUNCTIVA ENT: OROPHARYNX NORMAL, EARS NORMAL, NOSE NORMAL NECK: SUPPLE, NONTENDER CHEST AND RESPIRATORY: AIRWAY PATENT, NO RESPIRATORY DISTRESS, NO ACCESSORY MUSCLE USE HEART: REGULAR RATE/RHYTHM ABDOMEN: LARGE ABDOMEN, FIRM, DISTENDED, ASCITES, QUITE BOWEL SOUNDS VASCULAR: NORMAL PERIPHERAL PULSES, NORMAL CAPILLARY REFILL. MUSCULOSKELETAL: NORMAL RANGE OF MOTION, NONTENDER BACK NEUROLOGIC: ALERT AND ORIENTED ?3, WARD ATTENDANT IS NORMAL TESTED, NO GROSS MOTOR DEFICIT Course Consultations Consultation #1: DR WINTER HOSPITALIST AT [facility] WHO ACCEPTED PATIENT TRANSFER Vital Signs Vital signs: Vital Signs Temperature 36.4 C 04/24/25 19:50 Pulse Rate 116 H 04/24/25 19:50 Respiratory Rate 16 04/24/25 19:50 Blood Pressure 98/94 L 04/24/25 19:50 Pulse Oximetry 98 04/24/25 19:50 Oxygen Delivery Room Air 04/24/25 19:50 Temperature 36.4 C 04/24/25 19:50 Pulse Rate 62 04/24/25 22:16 Respiratory Rate 13 04/24/25 20:02 Blood Pressure 106/89 04/24/25 22:16 Pulse Oximetry 97 04/24/25 22:16 Oxygen Delivery Room Air 04/24/25 22:16 MDM - Weakness MDM Narrative Medical decision making narrative: PATIENT CAME WITH WEAKNESS, LOWER EXTREMITY PAIN VITAL SIGN SHOWING BLOOD PRESSURE 98/94, HEART RATE 116 OTHERWISE WITHIN NORMAL LIMIT PHYSICAL EXAMINATION SHOWING DEBILITATING PATIENT, ASCITES, COMPRESSION STOCKING LOWER EXTREMITY BILATERALLY, REMOVED, NEW NO ACUTE ABNORMALITIES DIFFERENTIAL DIAGNOSIS INCLUDE ELECTROLYTE ABNORMALITY, DEHYDRATION, ANEMIA, URINARY TRACT INFECTION, PNEUMONIA, CONGESTIVE HEART FAILURE BLOOD WORKUP TODAY INCLUDES CBC, CMP, TROPONIN, PROBNP, COAGS SHOWED HEMOGLOBIN 8.3, MAGNESIUM 2.6, TROPONIN 0.039, PRO BMP 13,600, POTASSIUM 6.0 CHEST X-RAY SHOWED MILD PULMONARY EDEMA EKG SHOWED AFIB WITH NORMAL VENTRICULAR RESPONSE DIAGNOSIS: ALICIA, HYPERKALEMIA, ANEMIA, PORTAL HYPERTENSION, LIVER CIRRHOSIS WITH ASCITES TRANSFERRED TO [facility]. Differential Diagnosis Differential diagnosis: Likely other ( ABOVE) Medical Records Attestation: I reviewed the patient's medical records. Lab Data Attestation: I reviewed the patient's lab results. 04/24/25 20:27 04/24/25 20:27 Labs: Lab Results 04/24/25 04/24/25 Range/Units 20:27 22:50 WBC 10.3 (4.8-10.8) K/mm3 RBC 3.69 L (4.70-6.10) M/mm3 Hgb 8.3 L (12.4-15.3) g/dL Hct 30.5 L (37.0-46.0) % MCV 82.7 (78.0-102.0) fL MCH 22.5 L (27.0-31.0) pg MCHC 27.2 L (32-36) g/dL RDW 18.9 H (11.6-14.4) % Plt Count 154 (150-420) K/mm3 MPV 11.0 (8.7-11.0) fl Immature Gran % (Auto) 0.6 H (0.0-0.0) % Neut % (Auto) 80.1 H (50.0-70.0) % Lymph % (Auto) 8.0 L (18.0-42.0) % [place] % (Auto) 9.8 (2.0-11.0) % Eos % (Auto) 1.4 (1.0-6.0) % Baso % (Auto) 0.1 (0.0-1.0) % Lymph # (Auto) 0.83 L (1.10-4.50) K/mm3 [place] # (Auto) 1.01 H (0.10-0.90) K/mm3 Eos # (Auto) 0.14 (0.02-0.50) K/mm3 Baso # (Auto) 0.01 (0.00-0.10) K/mm3 Abs Immat Gran (auto) 0.06 H (0.00-0.00) K/mm3 Absolute Neuts (auto) 8.27 H (1.70-7.20) K/mm3 Absolute Nucleated RBC 0.00 (0.00-0.00) K/mm3 Nucleated RBC % 0.0 (0-0.0) % PT 12.1 (9.50-12.1) Seconds INR 1.1 APTT 34.7 H (23.9-30.70) Sec Sodium 131 L Pending (137-145) mmol/L Potassium 6.0 H* Pending (3.4-5.0) mmol/L Chloride 96 L Pending (98-107) mmol/L Carbon Dioxide 20 L Pending (22-30) mmol/L Anion Gap 15 H Pending (4-12) mmol/L BUN 96 H D Pending (9-20) mg/dL Creatinine 4.15 H Pending (0.7-1.3) mg/dL Estim Creat Clear Calc 18 Pending ml/min Estimated GFR 14 L Pending (59 - ) Glucose 238 H Pending (65-110) mg/dL Calculated Osmolality 309 H Pending (285-295) mOsm/kg Calcium 8.6 Pending (8.4-10.2) mg/dL Magnesium 2.6 H (1.6-2.3) mg/dL Total Bilirubin 0.8 (0.2-1.3) mg/dL AST 29 (17-59) U/L ALT 18 (6-50) U/L Alkaline Phosphatase 138 H (38-126) U/L Troponin I 0.039 H* (0.000-0.034) ng/mL NT-Pro-B Natriuret Pep 83566 H (19.9-100) pg/mL Total Protein 7.2 (6.3-8.2) g/dL Albumin 3.7 (3.5-5.1) g/dL Lipase 128 (23-300) U/L Imaging Data Radiologist's impression: Impressions Chest X-Ray 04/24/25 21:00 Impression: 1: Bilateral asymmetric airspace disease, most likely edema. 2: Moderate cardiomegaly. ECG Data EKG #1: Attestation: I personally reviewed and interpreted this ECG as follows: ECG completion date: 04/24/25 Interpretation: AFIB WITH NORMAL VENTRICULAR RESPONSE 62 BEATS PER MINUTE, LEFT AXIS DEVIATION, LEFT BUNDLE-BRANCH BLOCK, ABNORMAL EKG Critical Care Time Critical Care Time Critical Care Time: Yes Total Critical Care Time: 30 Discharge Plan Discharge Clinical Impression: ALICIA (acute kidney injury), Acute hyperkalemia, Anemia, Elevated troponin, Pulmonary edema, Cirrhosis of liver with ascites, H/O portal hypertension Patient Disposition: Acute Care Hospital Condition: Guarded Prognosis Patient Language: Thai Prescriptions: No Action insulin glargine [Lantus Solostar U-100 Insulin] 100 unit/mL (3 mL) insulin pen 18 unit SUBCUT QPM insulin lispro 100 unit/mL insulin pen 6 unit SUBCUT .with meals aspirin 81 mg tablet,chewable 81 mg PO DAILY Rx Instructions: Chew 81 mg by mouth daily. clotrimazole-betamethasone 1-0.05 % cream 1 applic topical BID warfarin 5 mg tablet 5 mg PO DAILY Qty: 30 0RF warfarin 2 mg tablet 2 mg PO DAILY Qty: 30 0RF bumetanide 2 mg tablet 2 mg PO BID Qty: 60 0RF trazodone 100 mg tablet 300 mg PO HS Qty: 90 0RF hydrocodone-acetaminophen 7.5-325 mg Tablet 1 tablet PO Q8H PRN (Reason: Pain, Moderate) Qty: 20 0RF metoprolol succinate 25 mg tablet extended release 24 hr 25 mg PO DAILY Qty: 30 0RF Jardiance 25 mg Tablet 25 mg PO DAILY Qty: 30 0RF allopurinol 300 mg tablet 300 mg PO DAILY sertraline 50 mg tablet 50 mg PO DAILY atorvastatin 80 mg tablet 80 mg PO HS pantoprazole 40 mg tablet,delayed release (DR/EC) 40 mg PO DAILY albuterol sulfate [Ventolin HFA] 90 mcg/actuation Hfa Aerosol Inhaler 2 puff INHALATION Q4H PRN (Reason: Shortness Of Breath) docusate sodium 100 mg Capsule 100 mg PO DAILY PRN (Reason: Constipation) hydroxyzine HCl 50 mg Tablet 50 mg PO TID MDD 3 PRN (Reason: itch) Trelegy Ellipta 100-62.5-25 mcg Blister With Device 1 inh INHALATION DAILY nystatin [Nystop] 100,000 unit/gram powder 1 applic TOPICAL BID Patient Comments: Apply to groin, under abd fold folic acid 1 mg tablet 1 mg PO DAILY Rx Instructions: Take 1 mg by mouth daily. Ozempic 1 mg/dose (4 mg/3 mL) pen injector 1 mg subcut WEEKLY pregabalin [Lyrica] 150 mg capsule 150 mg PO BID Ozempic 1 mg/dose (4 mg/3 mL) pen injector 1 mg subcut WEEKLY Follow-up/Referrals: Megan Infante MD [Primary Care Provider, Family Practice]
--- NOTE | 2025-04-24 20:18 | PC.NURSE ---
DRESSINGS TO BILATERAL LOWER LEGS REMOVED.
--- NOTE | 2025-04-24 20:19 | PC.NURSE ---
MAVIS ULRICH, AT THE BEDSIDE FOR EKG
[2025-04-24 20:32] LABS: Hematocrit 30.5 % (37.0-46.0); Hemoglobin 8.3 g/dL (12.4-15.3); Immature Granulocyte Percent A 0.6 % (0.0-0.0); Lymphocytes Absolute Auto 0.83 K/mm3 (1.10-4.50); Mean Corpuscular HGB Conc 27.2 g/dL (32-36); Mean Corpuscular Hemoglobin 22.5 pg (27.0-31.0); Mean Corpuscular Volume 82.7 fL (78.0-102.0); Nucleated Red Blood Cells Absolute Auto 0.00 K/mm3 (0.00-0.00); Nucleated Red Blood Cells Perc 0.0 % (0-0.0); Platelet Count Result 154 K/mm3 (150-420); Red Blood Count 3.69 M/mm3 (4.70-6.10); White Blood Count 10.3 K/mm3 (4.8-10.8)
[2025-04-24 20:44] LABS: Alanine Aminotransferase 18 U/L (6-50); Albumin Level 3.7 g/dL (3.5-5.1); Alkaline Phosphatase 138 U/L (38-126); Anion Gap 15 mmol/L (4-12); Aspartate Amino Transferase 29 U/L (17-59); Bilirubin,Total 0.8 mg/dL (0.2-1.3); Blood Urea Nitrogen 96 mg/dL (9-20); Calcium 8.6 mg/dL (8.4-10.2); Carbon Dioxide 20 mmol/L (22-30); Chloride 96 mmol/L (98-107); Estimated CRCL calculation 18 ml/min; Estimated Glomerular Filt Rate 14; Glucose 238 mg/dL (65-110); Lipase 128 U/L (23-300); Magnesium 2.6 mg/dL (1.6-2.3); Osmolality Calculated 309 mOsm/kg (285-295); Sodium 131 mmol/L (137-145); Total Protein 7.2 g/dL (6.3-8.2)
[2025-04-24 20:47] LABS: INR 1.1; Partial Thromboplastin Time 34.7 Sec (23.9-30.70); Potassium 6.0 mmol/L (3.4-5.0); Prothrombin Time 12.1 Seconds (9.50-12.1)
--- NOTE | 2025-04-24 20:54 | PC.NURSE ---
RESTING QUIETLY ON STRETCHER. DAUGHTER AT HIS SIDE. CURRENTLY DENIES ANY NEEDS. CALL LIGHT IN REACH
[2025-04-24 20:56] LABS: NT Pro B Type Natriuretic Pept 13600 pg/mL (19.9-100)
[2025-04-24 21:01] LABS: Troponin I 0.039 ng/mL (0.000-0.034)
[2025-04-24] MEDS: CALCIUM GLUC 1,000 MG/NS 50 ML 1,000 MG/50 ML BAG 100 MG IVPB (21:16)
[2025-04-24] MEDS: HYDROcodone/acetaminophen (*CRX) 10-325 MG TABLET 1 TAB PO (21:44)
[2025-04-24] MEDS: INSULIN HUMAN REGULAR (*BKC) 1,000 UNITS/10 ML VIAL 10 UNITS IV PUSH (21:45)
[2025-04-24] MEDS: DEXTROSE 50% 25 GM/50 ML SYRINGE IV PUSH (21:48)
[2025-04-24] MEDS: SODIUM BICARBONATE 8.4% 50 MEQ/50 ML SYRINGE IV PUSH (21:50)
[2025-04-24] MEDS: SODIUM CHLORIDE 0.9% IV 1,000 ML 500 ML IV CONT (21:55)
--- NOTE | 2025-04-24 22:22 | PC.NURSE ---
PATIENT BEING MOVED TO HOSPITAL BED FOR COMFORT
--- NOTE | 2025-04-24 22:29 | PC.NURSE ---
NEW DRESSINGS PLACED TO BILATERAL LOWER EXTREMITIES BY MAVIS ULRICH
[2025-04-24 23:07] LABS: Anion Gap 13 mmol/L (4-12); Blood Urea Nitrogen 98 mg/dL (9-20); Calcium 8.6 mg/dL (8.4-10.2); Carbon Dioxide 22 mmol/L (22-30); Chloride 97 mmol/L (98-107); Estimated CRCL calculation 17 ml/min; Estimated Glomerular Filt Rate 14; Glucose 182 mg/dL (65-110); Osmolality Calculated 309 mOsm/kg (285-295); Potassium 5.5 mmol/L (3.4-5.0); Sodium 132 mmol/L (137-145)
--- NOTE | 2025-04-24 23:29 | PC.NURSE ---
RESTING ON HOSPITAL BED. UNABLE TO GET COMFORTABLE. STATES THIS IS NOT UNCOMMON FOR HIM. PATIENT HAS CALL LIGHT. DAUGHTER HAS BEEN INFORMED OF WHERE PATIENT IS BEING TRANSFERRED TO. VERBALIZED UNDERSTANDING
[2025-04-25 00:07] VITALS: BP 97/79; PULSE 70; RESP 18; O2SAT 94
[2025-04-25 00:08] VITALS: BP 97/79; PULSE 72; O2SAT 95
[2025-04-25 00:21] VITALS: BP 97/79; PULSE 76; RESP 18; O2SAT 94
== END 2025-04-25 00:21 | disposition short-term general hospital (02) ==
PROVIDERS: Emergency Provider Emergency Medicine; PCP Family Medicine
DX: N17.9 Acute kidney failure, unspecified (principal); E87.5 Hyperkalemia; D64.9 Anemia, unspecified; R79.89 Other specified abnormal findings of blood chemistry; J81.1 Chronic pulmonary edema; K74.60 Unspecified cirrhosis of liver; E78.5 Hyperlipidemia, unspecified; J44.9 Chronic obstructive pulmonary disease, unspecified; I13.0 Hypertensive heart and chronic kidney disease with heart failure and stage 1 through stage 4 chronic kidney disease, or unspecified chronic kidney disease; E11.22 Type 2 diabetes mellitus with diabetic chronic kidney disease; N18.4 Chronic kidney disease, stage 4 (severe); I50.9 Heart failure, unspecified; I48.91 Unspecified atrial fibrillation; Z86.73 Personal history of transient ischemic attack (TIA), and cerebral infarction without residual deficits; Z79.01 Long term (current) use of anticoagulants; Z87.891 Personal history of nicotine dependence
CPT/HCPCS: 36415; 71045; 80048; 80053; 83690; 83735; 83880; 84484; 85025; 85610; 85730; 93005; 96361; 96365; 96375; 99285; A9270; J0612; J1815; J7030